=== PATIENT | female | born 1970 | race Caucasian/White ===

== ENCOUNTER 2022-11-01 09:18 | Outpatient (OUT) | payer OTHER, SELFPAY ==
[2022-11-01 10:05] LABS: Bilirubin Urine NEGATIVE (NEGATIVE); Blood Urine NEGATIVE (NEGATIVE); Clarity Urine CLEAR (CLEAR); Color Urine LT. YELLOW (YELLOW); Glucose Urine UA NEGATIVE (NEGATIVE); Ketones Urine NEGATIVE (NEGATIVE); Leukocyte Esterase Urine NEGATIVE (NEGATIVE); Nitrite Urine NEGATIVE (NEGATIVE); Protein Urine NEGATIVE (NEG/TRACE); Urobilinogen Urine 0.2 EU/dL (0.2-1.0)
[2022-11-01 10:16] LABS: WBC Urine 0-2 #/HPF (NONE SEEN)
[2022-11-01 10:17] LABS: Bacteria Urine MODERATE #/HPF (NONE SEEN); Mucus Urine NONE SEEN (NONE SEEN); RBC Urine NONE SEEN #/HPF (0-2); Squamous Epithelial Cell Urine MANY #/LPF (NONE/RARE)
[2022-11-01 10:18] LABS: Cast Seen? NONE SEEN #/LPF (NONE SEEN); Crystals Seen? None Seen #/HPF (None Seen)
[2022-11-01 10:28] LABS: Estimated Average Glucose 108 mg/dL; Glycohemoglobin A1C 5.4 % (4.5-6.2)
[2022-11-01 11:13] LABS: Alanine Aminotransferase 38 U/L (14-59); Albumin Globulin Ratio 0.8; Albumin Level 3.4 g/dL (3.4-5.0); Alkaline Phosphatase 113 U/L (46-116); Anion Gap 11.4; Aspartate Amino Transferase 27 U/L (15-37); BUN Creatinine Ratio 11.2; Bilirubin Total 0.5 mg/dL (0.2-1.0); Calcium 8.9 mg/dL (8.5-10.1); Carbon Dioxide 28.6 mmol/L (21.0-32.0); Chloride 104 mmol/L (98-107); Estimated GFR (African America >60 (>=60); Estimated GFR (Non-African Ame 53 (>=60); Globulin 4.3 g/dL; Glucose 98 mg/dL (74-106); Sodium 140 mmol/L (136-145); Total Protein 7.7 g/dL (6.4-8.2)
[2022-11-01 11:15] LABS: Free T4 0.73 ng/dL (0.76-1.46)
[2022-11-01 11:20] LABS: Chol HDL Ratio 3.3; Cholesterol 141 mg/dL (<=200); HDL Cholesterol 43 mg/dL (40-60); LDL Cholesterol Calculated 74.8 mg/dL; Thyroid Stimulating Hormone 2.027 uIU/mL (0.358-3.740); Triglycerides 116 mg/dL (<=150); VLDL CHOLESTEROL 23.2 mg/dL
== END 2022-11-01 09:19 ==
LOC: LAB 09:22
PROVIDERS: PCP Nurse Practitioner; Visit Provider Nurse Practitioner
DX: E55.9 Vitamin D deficiency, unspecified (principal); I10 Essential (primary) hypertension; E66.01 Morbid (severe) obesity due to excess calories; Z68.41 Body mass index [BMI] 40.0-44.9, adult
CPT/HCPCS: 36415; 80053; 80061; 81001; 82306; 83036; 84439; 84443

== ENCOUNTER 2023-02-25 12:17 | Outpatient (OUT) | payer MEDICARE, SELFPAY ==
[2023-02-25 13:08] LABS: Basophils Percent Auto 0.5 % (0.2-2.0); Eosinophils Absolute Auto 0.1 10^3/uL (0.0-0.7); Eosinophils Percent Auto 1.7 % (0.9-7.0); Hematocrit 40.6 % (36.0-48.0); Hemoglobin 12.6 g/dL (12.0-16.0); Immature Granulocytes Abs Auto 0.04 10^3/uL (0.00-0.03); Immature Granulocytes Pct Auto 0.5 % (0.0-0.5); Lymphocytes Absolute Auto 0.8 10^3/uL (1.2-3.8); Lymphocytes Percent Auto 10.3 % (20.5-60.0); Mean Corpuscular Hemoglobin 27.9 pg (26.7-34.0); Mean Corpuscular Volume 89.8 fL (81.0-99.0); Mean Platelet Volume 12.7 fL (9.5-13.5); Monocytes Percent Auto 12.6 % (1.7-12.0); Neutrophils Percent Auto 74.4 % (43.0-75.0); Platelet Count 240 10^3/uL (150-450); Red Blood Count 4.52 10^6/uL (4.20-5.40); Red Cell Distribution Width 14.6 % (11.0-15.0); White Blood Count 8.1 10^3/uL (4.0-11.0)
[2023-02-25 13:09] LABS: Bilirubin Urine NEGATIVE (NEGATIVE); Blood Urine NEGATIVE (NEGATIVE); Clarity Urine CLEAR (CLEAR); Color Urine LT. YELLOW (YELLOW); Glucose Urine UA NEGATIVE (NEGATIVE); Ketones Urine NEGATIVE (NEGATIVE); Leukocyte Esterase Urine NEGATIVE (NEGATIVE); Nitrite Urine NEGATIVE (NEGATIVE); Protein Urine NEGATIVE (NEG/TRACE); Specific Gravity Urine 1.015 (1.005-1.025); Urobilinogen Urine 0.2 EU/dL (0.2-1.0)
[2023-02-25 13:11] LABS: Erythrocyte Sedimentation Rate 39 mm/hr (<=30)
[2023-02-25 13:11] LABS: Urine Microscopic Indicated NO
[2023-02-25 13:15] LABS: WBC Urine NONE SEEN #/HPF (NONE SEEN)
[2023-02-25 13:16] LABS: Bacteria Urine NONE SEEN #/HPF (NONE SEEN); Cast Seen? NONE SEEN #/LPF (NONE SEEN); Crystals Seen? None Seen #/HPF (None Seen); Mucus Urine NONE SEEN (NONE SEEN); RBC Urine NONE SEEN #/HPF (0-2); Squamous Epithelial Cell Urine FEW #/LPF (NONE/RARE)
[2023-02-25 13:47] LABS: Alanine Aminotransferase 31 U/L (14-59); Albumin Globulin Ratio 0.8; Albumin Level 3.5 g/dL (3.4-5.0); Alkaline Phosphatase 103 U/L (46-116); Anion Gap 5.7; Aspartate Amino Transferase 22 U/L (15-37); BUN Creatinine Ratio 8.7; Bilirubin Direct 0.1 mg/dL (0.0-0.2); Bilirubin Total 0.3 mg/dL (0.2-1.0); C Reactive Protein 0.9 mg/dL (<=1.0); Calcium 8.9 mg/dL (8.5-10.1); Chloride 103 mmol/L (98-107); Estimated GFR (African America >60 (>=60); Estimated GFR (Non-African Ame 55 (>=60); Free T3 2.53 pg/mL (2.18-3.98); Globulin 4.3 g/dL; Glucose 83 mg/dL (74-106); Potassium 3.7 mmol/L (3.5-5.1); Sodium 139 mmol/L (136-145); Total Protein 7.8 g/dL (6.4-8.2)
== END 2023-02-25 12:18 | disposition home or self-care (01) ==
LOC: LAB 12:21
PROVIDERS: PCP Nurse Practitioner; Visit Provider Nurse Practitioner
DX: R61 Generalized hyperhidrosis (principal); N95.1 Menopausal and female climacteric states
CPT/HCPCS: 36415; 80053; 81003; 82248; 84439; 84443; 84481; 85025; 85652; 86140

== ENCOUNTER 2024-01-23 10:19 | Outpatient (OUT) | payer MEDICARE, SELFPAY ==
[2024-01-23 10:57] LABS: Bilirubin Urine NEGATIVE (NEGATIVE); Blood Urine NEGATIVE (NEGATIVE); Clarity Urine CLEAR (CLEAR); Color Urine LT. YELLOW (YELLOW); Glucose Urine UA NEGATIVE (NEGATIVE); Ketones Urine NEGATIVE (NEGATIVE); Leukocyte Esterase Urine NEGATIVE (NEGATIVE); Nitrite Urine NEGATIVE (NEGATIVE); Protein Urine NEGATIVE (NEG/TRACE); Urobilinogen Urine 0.2 EU/dL (0.2-1.0); pH Urine 6.5 (5.0-9.0)
[2024-01-23 10:59] LABS: Urine Microscopic Indicated NO
[2024-01-23 11:09] LABS: Creatinine Urine Random 87.93 mg/dL (20.00-300.00); Microalbumin Urine Random <1.3 mg/dL (<=30.0)
[2024-01-23 11:13] LABS: Estimated Average Glucose 100 mg/dL; Glycohemoglobin A1C 5.1 % (4.5-6.2)
[2024-01-23 11:57] LABS: Alanine Aminotransferase 24 U/L (14-59); Albumin Globulin Ratio 0.9; Albumin Level 3.6 g/dL (3.4-5.0); Alkaline Phosphatase 88 U/L (46-116); Anion Gap 14.4; Aspartate Amino Transferase 23 U/L (15-37); BUN Creatinine Ratio 8.2; Bilirubin Total 0.6 mg/dL (0.2-1.0); Carbon Dioxide 30.2 mmol/L (21.0-32.0); Chloride 101 mmol/L (98-107); Chol HDL Ratio 4.7; Cholesterol 205 mg/dL (<=200); Estimated GFR (African America >60 (>=60); Estimated GFR (Non-African Ame 60 (>=60); Globulin 3.9 g/dL; Glucose 91 mg/dL (74-106); HDL Cholesterol 44 mg/dL (40-60); Potassium 3.6 mmol/L (3.5-5.1); Sodium 142 mmol/L (136-145); Thyroid Stimulating Hormone 1.719 uIU/mL (0.358-3.740); Total Protein 7.5 g/dL (6.4-8.2); Triglycerides 143 mg/dL (<=150); VLDL CHOLESTEROL 28.6 mg/dL
[2024-01-23 12:10] LABS: Free T4 1.01 ng/dL (0.76-1.46)
[2024-01-24 09:10] LABS: HBsAg Screen Negative (Negative); HCV Ab Non Reactive (Non Reactive); Hep A Ab, IgM Negative (Negative); Hep B Core Ab, IgM Negative (Negative)
== END 2024-01-23 10:20 | disposition home or self-care (01) ==
LOC: LAB 10:19
PROVIDERS: PCP Nurse Practitioner; Visit Provider Nurse Practitioner
DX: R63.5 Abnormal weight gain (principal); L02.91 Cutaneous abscess, unspecified; E55.9 Vitamin D deficiency, unspecified; Z20.5 Contact with and (suspected) exposure to viral hepatitis; E78.5 Hyperlipidemia, unspecified; I10 Essential (primary) hypertension
CPT/HCPCS: 36415; 80053; 80061; 80074; 81003; 82043; 82306; 82570; 83036; 84439; 84443

== ENCOUNTER 2024-06-30 09:18 | Outpatient (OUT) | payer MEDICARE, SELFPAY ==
--- NOTE | 2024-06-30 09:20 | MM_ITS ---
Patient Name: NITHYA VASQUEZ MR#: [id number] : 1970 Exam Date: 06/30/2024 Ordering Doctor: RUBINA Gracia CNP RADIOLOGY REPORT PROCEDURE: MM TOMOSYNTHESIS SCREENING BI COMPARISON: None. INDICATIONS: Screening Calculator Name NCI Breast Cancer Risk Assessment Tool 5 Year Breast Cancer Risk 2.40% Lifetime Breast Cancer Risk 14.80% Personal Breast Cancer No Personal Ovarian Cancer No Treatments None Family Cancers Sister with breast cancer at age 63; Father with throat/lung cancer at age 58. LOCATION: [facility] BREAST COMPOSITION: There are scattered areas of fibroglandular density. FINDINGS: DIAGNOSTIC CATEGORY 1--NEGATIVE. NO CHANGE FROM COMPARISON ASSESSMENT. Scattered benign-appearing calcifications are present. RIGHT BREAST: No significant suspicious finding. LEFT BREAST: No significant suspicious finding. RECOMMENDATIONS: ROUTINE MAMMOGRAM AND CLINICAL EVALUATION IN 12 MONTHS. PLEASE NOTE: A NORMAL MAMMOGRAM DOES NOT EXCLUDE THE POSSIBILITY OF BREAST CANCER. A CLINICALLY SUSPICIOUS PALPABLE LUMP SHOULD BE BIOPSIED. Dictated by: Rivera Kenny MD on 06/30/2024 at 11:30 Approved by: Rivera Kenny MD on 06/30/2024 at 11:32
--- OUTSIDE RECORDS SUMMARY | 2024-06-30 09:41 | XMS_ITS | CCD ---
Author Organization [facility] Inform ion Partnership [facility] Care Team Providers Care Specialty Manufacturing Supervisor Name Role Phone August DE ICER Unavailable Unavailable August DE ICER Unavailable Unavailable August DE ICER Unavailable Unavailable Jaleesa Lara Unavailable [facility] Primary Care Provider MD Tyshawn Palencia Attending Provider Valdez Acosta MD Primary Care Provider Tyshawn Palencia Unavailable Valdez Acosta MD Primary Care Provider Valdez Acosta MD Primary Care Provider AICHHOLZ, DE ICER KRISTIN Admitting Unavailable AICHHOLZ, DE ICER KRISTIN Attending Unavailable AICHHOLZ, DE ICER KRISTIN Primary Care Unavailable TAMLYN ., YAHAIRA Consulting Unavailable TAMLYN ., YAHAIRA Admitting Unavailable TAMLYN ., YAHAIRA Attending Unavailable AICHHOLZ, DE ICER KRISTIN Primary Care Unavailable TAMLYN ., YAHAIRA Consulting Unavailable THEA LYNN Consulting Unavailable YASH CALLAHAN Consulting Unavailable AICHHOLZ, DE ICER KRISTIN Admitting Unavailable AICHHOLZ, DE ICER KRISTIN Attending Unavailable AICHHOLZ, DE ICER KRISTIN Primary Care Unavailable AICHHOLZ, DE ICER KRISTIN Consulting Unavailable AICHHOLZ, DE ICER KRISTIN Admitting Unavailable AICHHOLZ, DE ICER KRISTIN Attending Unavailable AICHHOLZ, DE ICER KRISTIN Primary Care Unavailable AICHHOLZ, DE ICER KRISTIN Consulting Unavailable DR TULIO BULL Admitting Unavailable MISC, DR ANTUNEZ Attending Unavailable AICHHOLZ, DE ICER KRISTIN Primary Care Unavailable MISC, DR ANTUNEZ Consulting Unavailable Aichholz BLUEPRINT BLOCKER, Kristin Unavailable Maxim Lanza MD Primary Care Provider Valdez Acosta MD Primary Care Provider VINCE, JESSICA Referring Unavailable PARIS TOLEDO Attending Unavailable DAHBAR, MAZEN Primary Care Unavailable ELIAZAR VAZQUEZ Attending Unavailable DAHBAR, MAZEN Primary Care Unavailable KATERIN MCCOY Attending Unavailable YOUNG, JESSICA Referring Unavailable DAHBAR, MAZEN Primary Care Unavailable YOUNG, JESSICA Referring Unavailable YOUNG, JESSICA Attending Unavailable [facility], [facility] Unavailable SARTHAK ESCOBAR Referring Unavailable DAHBAR, [facility] Primary Care Unavailable , AUGUST L Primary Care Physician Unavailab le CHICKENAugust Primary Care Unavailable Brooks, Eliazar T Referring Unavailable Brooks, Eliazar T Attending Unavailable Brooks, Eliazar T Admitting Unavailable NONE, XXXX Primary Care Physician Unavailab Keli Montanez Unavailable Unavailable Brooks, Eliazar T Admitting Unavailable Brooks, Eliazar T Attending Unavailable Brooks, Eliazar T Referring Unavailable Brooks, Eliazar T Admitting Unavailable Brooks, Eliazar T Attending Unavailable Brooks, Eliazar T Referring Unavailable CHICKENAugust Primary Care Unavailable Aichholz BLUEPRINT BLOCKER, Kristin Unavailable Myla BENITEZ, Maxim Primary Care Provider Sarah FIGUEROA, Sherrie Unavailable John VIEIRAN.RUBINA, Elizabeth Lantigua Unavailable [phone] SHERRIE BOONE Attending UnavailSHAIKH Junior Attending Unavailable HILLS, YAHAIRA D Attending Unavailable HILLS, YAHAIRA D Referring Unavailable AICHHOLZ, KRISTIN Attending Unavailable HILLS, YAHAIRA D Referring Unavailable HILLS, YAHAIRA D Attending Unavailable HILLS, YAHAIRA D Referring Unavailable AICHHOLZ, KRISTIN Attending Unavailable HILLS, YAHAIRA D Referring Unavailable HILLS, YAHAIRA D Attending Unavailable AICHHOLZ, KRISTIN Attending Unavailable BROOKS, ELIAZAR T Attending Unavailable AICHHOLZ, KRISTIN Attending Unavailable BROOKS, ELIAZAR T Attending Unavailable BROOKS, ELIAZAR T Referring Unavailable AICHHOLZ, KRISTIN Attending Unavailable BROOKS, ELIAZAR T Referring Unavailable BROOKS, ELIAZAR T Attending Unavailable BROOKS, ELIAZAR T Referring Unavailable ARIA AGRAWAL Attending Unavailable BROOKS, ELIAZAR T Referring Unavailable INDERJIT PELLETIER Attending Unavailable AICHHOLZ, KRISTIN Attending Unavailable INDERJIT PELLETIER Attending Unavailable BROOKS, ELIAZAR T Referring Unavailable BROOKS, ELIAZAR T Attending Unavailable INDERJIT PELLETIER Attending Unavailable ELIAZAR BROOKS Referring Unavailable INDERJIT PELLETIER Attending Unavailable ELIAZAR BROOKS Referring Unavailable YAHAIRA VAZQUEZ Attending Unavailable KRISTIN GRACIA Attending Unavailable Allergies Allergy Classification Reported Allergen(s) Allergy Type Date of Onset Reaction(s) Facility (1 source) -No Environmental Allergies Allergy to substance [facility] Work Phone: (2 sources) Acetaminophen / HYDROcodone; Translations: [Vicodin] Drug Allergy [facility] Repository (2 sources) Penicillins; Translations: [penicillins] Propensity to adverse reactions (disorder) [facility] Repository Medications Current Medications Medication Drug Class(es) Dates Sig (Normalized) Sig (Original) acetaminophen 1000 mg oral tablet (20 sources) Start: 06-30-2016 take 1000 mg by mouth every six hours as needed for pain Tylenol 1,000 mg, Oral, q6hr, PRN as needed for pain Start Date: 06/30/16 Status: Ordered acetaminophen (T ylenol) 500 MG tablet Take by mouth Active acetaminophen 325 mg / oxyCODONE hydrochloride 5 mg oral tablet (20 sources) Opioid Agonist Start: 02-06-2024 take 1-2 tablets by mouth every four hours as needed for pain Percocet 5 mg-325 mg oral tablet See Instructions, 40 tab(s), Refill(s) 0, Take one to two oral every 4 hours as needed for shoulder surgical pain., MuteButton #72, 167.7, cm, 02/05/24 11:09:00 EDT, Height/Length Dosing, 131.3, kg, 02/05/24 11:09:00 EDT, Weight Dosing Start Date: 02/06/24 Status: Ordered Start: 02-06-2024 End: 04-15-2024 Percocet 5-325 MG tablet See Instructions, 40 tab(s), Refill(s) 0, Take one to two oral every 4 hours as needed for shoulder surgical pain., MuteButton #72, 167.7, cm, 02/05/24 11:09:00 EDT, Height/Length Dosing, 131.3, kg, 02/05/24 11:09:00 EDT, Weight Dosing 02/06/2024 04/15/2024 Discontinued (Therapy completed) [id number] 200 actuat albuterol 0.09 mg/actuat metered dose inhaler (20 sources) beta2-Adrenergic Agonist Start: 10-10-2023 take 2 puff(s) by inhalation every six hours for wheezing albuterol HFA (Ventolin HFA) 90 mcg/act inhaler Indications: Chronic bronchitis, unspecified chronic bronchitis type (CMS/HCC) Inhale 2 puffs every 6 (six) hours if needed for wheezing or shortness of breath 18 g 1 10/10/2023 Active Start: 06-05-2023 take 2 puff(s) by mo ut every six hours as needed for wheezing albuterol HFA (PROVENTIL HFA, VENTOLIN HFA) 90 mcg/actuation inhaler INHALE 2 PUFFS BY MOUTH EVERY 6 HOURS NEEDED FOR WHEEZING FOR SHORTNESS OF BREATH 06/05/2023 Active Start: 06-05-2023 End: 07-05-2023 take 2 puff(s) by inhalation every six hours for wheezing albuterol HFA (Ventolin HFA) 90 mcg/act inhaler Indications: Chronic bronchitis, unspecified chronic bronchitis type (CMS/HCC) Inhale 2 puffs every 6 (six) hours if needed for wheezing or shortness of breath 18 g 1 06/05/2023 07/05/2023 Active Comment on above: INHALE 2 PUFFS BY MO UT EVERY 6 HOURS NEEDED FOR WHEEZING FOR SHORTNESS OF BREATH amitriptyline hydrochloride 25 mg oral tablet (20 sources) Tricyclic Antidepressant Start: 09-06-19 take 25 mg by mouth at bedtime Amitriptyline Active 25 MG PO Bedtime September 05, 2021 8:21am Start: 07-15-2020 amitriptyline (ELAVIL) 50 mg tablet Take 25-50 mg qhs 07/15/2020 Active take 1 tablet by katharina every twelve hours Amitriptyline HCl 10 MG 1 tablet Orally twice a day Active Amitriptyline HC l Active Comment on above: Take 25-50 mg qhs amoxicillin 875 mg oral tablet (4 sources) Penicillin-class Antibacterial Start: 04-14-20 End: 04-27-20 take 1 tablet by mouth in the morning amoxicillin (Amoxil) 875 MG tablet Indications: Acute non-recurrent sinusitis of other sinus Take 1 tablet (875 mg) by mouth in the morning and 1 tablet (875 mg) before bedtime. Do all this for 10 days. 20 tablet 04/14/2024 04/27/2024 Discontinued (Therapy completed) amoxicillin 875 mg / clavulanate 125 mg oral tablet (4 sources) Penicillin-class Antibacterial Start: 02-03-20 End: 02-13-20 take 1 tablet by mouth in the morning amoxicillin-clavulanat e (Augmentin) 875-125 MG tablet Indications: Diverticulitis Take 1 tablet (875 mg) by mouth in the morning and 1 tablet (875 mg) before bedtime. Do all this for 10 days. Take with food. 20 tablet 02/03/2024 02/13/2024 Active Start: 06-26-2023 End: 07-06-2023 take 1 tablet by mouth in the morning amoxicillin-clavulanate (Augmentin) 875-125 MG tablet Indications: COPD with exacerbation (CMS/HCC) Take 1 tablet (875 mg) by mouth in the morning and 1 tablet (875 mg) before bedtime. Do all this for 10 days. 20 tablet 0 06/26/2023 07/06/2023 Active ARIPiprazole 5 mg oral tablet (5 sources) Atypical Antipsychotic Start: 05-18-2024 End: 06-17-2024 take 1 tablet by mouth once daily ARIPiprazole (Abilify) 5 MG tablet Indications: Moderate episode of recurrent major depressive disorder (CMS/HCC) , Generalized anxiety disorder with panic attacks (CMS/HCC) Take 1 tablet (5 mg) by mouth Daily 30 tablet 1 05/18/2024 Active benzonatate 100 mg oral capsule (1 source) Non-narcotic Antitussive Start: 06-26-2023 End: 07-03-2023 take 1 capsule by mouth three times daily as needed for cough benzonatate (Tessalon Perles) 100 MG capsule Indications: COPD with exacerbation (CMS/HCC) Take 1 capsule (100 mg) by mouth 3 (three) times a day as needed for cough for up to 7 days Do not crush or chew. 20 capsule 0 06/26/2023 07/03/2023 Active brompheniramine maleate 0.4 mg/ml / dextromethorphan hydrobromide 2 mg/ml / pseudoephedrine hydrochloride 6 mg/ml oral solution (1 source) alpha-Adrenergic Agonist, Uncompetitive M-btxnol-A-aspartat e Receptor Antagonist, Sigma-1 Agonist Start: 04-15-2024 End: 04-22-2024 take 10 mL by mouth every eight hours for cough brompheniramine-p seudoephedrine-DM 30-2-10 MG/5ML syrup Indications: Acute cough Take 10 mL by mouth every 8 (eight) hours if needed for congestion or cough for up to 7 days 210 mL 04/15/2024 04/22/2024 Active 120 actuat budesonide 0.16 mg/actuat / formoterol fumarate 0.0048 mg/actuat / glycopyrrolate 0.009 mg/actuat metered dose inhaler (14 sources) Corticosteroid, beta2-Adrenergic Agonist Start: 12-02-2023 End: 03-01-2024 take 2 puff(s) by mouth in the morning Budeson-Glycopyrr ol-Formoterol (Breztri Aerosphere) 160-9-4.8 MCG/ACT aerosol Indications: Chronic bronchitis, unspecified chronic bronchitis type (CMS/HCC) Inhale 2 puffs in the morning and 2 puffs before bedtime. Rinse mouth after use. 3 g 1 12/02/2023 03/01/2024 Active buPROPion hydrochloride 75 mg oral tablet (1 source) Aminoketone Start: 06-30-2016 take 1 tablet by mouth once daily Wellbutrin 75 mg Tab 75 mg = 1 tab(s), Oral, Daily Start Date: 06/30/16 Status: Ordered busPIRone hydrochloride 5 mg oral tablet (5 sources) Start: 05-18-2024 End: 06-17-2024 take 1 tablet by mouth in the morning busPIRone (Buspar) 5 MG tablet Indications: Generalized anxiety disorder with panic attacks (CMS/HCC) Take 1 tablet (5 mg) by mouth in the morning and 1 tablet (5 mg) before bedtime. 60 tablet 1 05/18/2024 Active cetirizine hydrochloride 10 mg oral tablet (2 sources) Histamine-1 Receptor Antagonist Start: 06-17-2024 End: 09-15-2024 take 1 tablet by mouth once daily cetirizine (ZyrTEC) 10 MG tablet Indications: Acute non-recurrent frontal sinusitis Take 1 tablet (10 mg) by mouth Daily 30 tablet 2 06/17/2024 09/15/2024 Active cholecalciferol 0.025 mg oral capsule (20 sources) Vitamin D Cholecalciferol, Vitamin D3, (VITAMIN D) 25 mcg (1,000 unit) cap Take 1,000 Units by mouth once daily. Active End: 03-16-2022 take 1 capsule by mouth once daily Cholecalciferol, Vitamin D3, 1,000 unit cap Take 1,000 Units by mouth once daily. 0 03/16/2022 Discontinued Comment on above: Take 1,000 Units by mouth once daily. dimethyl fumarate 240 mg delayed release oral capsule (1 source) Start: take 240 mg by mouth twice daily Tecfidera 240 mg, Oral, BID Start Date: 06/30/16 Status: Ordered doxycycline hyclate 100 mg oral capsule (2 sources) Tetracycline-class Drug Start: 5 End: doxycycline (Vibramycin) 100 MG capsule Indications: Acute non-recurrent frontal sinusitis Take 1 capsule (100 mg) by mouth in the morning and 1 capsule (100 mg) before bedtime. Do all this for 7 days. Take with at least 8 ounces (large glass) of water, do not lie down for 30 minutes after. 14 capsule 06/17/2024 06/24/2024 Active escitalopram 10 mg oral tablet (20 sources) Serotonin Reuptake Inhibitor Start: End: 5 take 1 tablet by mouth once daily escitalopram (Lexapro) 10 MG tablet Indications: Moderate episode of recurrent major depressive disorder (CMS/HCC) , Generalized anxiety disorder with panic attacks (CMS/HCC) Take 1 tablet (10 mg) by mouth Daily 30 tablet 1 05/18/2024 Active Start: 04-27-2024 End: 05-27-2024 take 1 tablet by mouth once daily escitalopram (Lexapro) 20 MG tablet Indications: Anxiety and depression (CMS/HCC) Take 1 tablet (20 mg) by mouth Daily 30 tablet 1 04/27/2024 05/18/2024 Discontinued (Therapy completed) Start: 03-05-2024 End: 04-04-2024 take 1 tablet by mouth once daily escitalopram (Lexapro) 20 MG tablet Indications: Anxiety and depression (CMS/HCC) Take 1 tablet (20 mg) by mouth Daily 30 tablet 1 03/05/2024 Active Start: 12-02-2023 End: 03-05-2024 take 1 tablet by mouth once daily escitalopram (Lexapro) 10 MG tablet Indications: Anxiety and depression (CMS/HCC) Take 1 tablet (10 mg) by mouth Daily 90 tablet 1 12/02/2023 03/05/2024 Discontinued (Ineffective) Start: 06-05-2023 take 1 tablet by katharina th in the morning escitalopram (Lexapro) 10 MG tablet Indications: Anxiety and depression (CMS/HCC) Take 1 tablet (10 mg) by mouth in the morning. 90 tablet 1 06/05/2023 Active Estrogens, Conjugated (SKILLED NURSING) / medroxyPROGESTERone (1 source) Progestin, Estrogen Start: 06-30-2016 FLUoxetine 20 mg oral capsule (12 sources) Serotonin Reuptake Inhibitor Start: 09-05-2021 FLUoxetine (PROZAC) 20 mg capsule Daily 09/05/2021 Active Comment on above: Daily fluticasone propionate 0.05 mg/actuat metered dose nasal spray (2 sources) Corticosteroid Start: 06-17-2024 End: 06-17-2025 take 1-2 spray(s) nasal route once daily fluticasone (Flonase) 50 MCG/ACT nasal spray Indications: Acute non-recurrent frontal sinusitis Administer 1-2 sprays into each nostril Daily Shake gently. Before first use, prime pump. After use, clean tip and replace cap. 16 g 2 06/17/2024 06/17/2025 Active iv contrast (will be provided with radiology test) (5 sources) Start: 07-16-2023 End: 07-17-2023 inject 1 dose intravenously once iv contrast (will be provided with radiology test) MRI Brain Inject, intravenously, once for 1 dose.No IV access, insert saline lock prior to beginning of sedation, infusion, injection of imaging exam.Discontinue saline lock post exam. If Pt. has a central line or IVAD, may access for administration according to line specific nursing protocol.Once exam is complete flush line and de-access according to line specific nursing protocol in the MR contrast administration guidelines link 1 Each 0 07/16/2023 07/17/2023 Active Start: 08-30-2022 End: 08-31-2022 inject 1 dose intravenously once iv contrast (will be provided with radiology test) MRI Brain Inject, intravenously, once for 1 dose.No IV access, insert saline lock prior to beginning of sedation, infusion, injection of imaging exam.Discontinue saline lock post exam. If Pt. has a central line or IVAD, may access for administration according to line specific nursing protocol.Once exam is complete flush line and de-access according to line specific nursing protocol in the MR contrast administration guidelines link 1 Each 0 08/30/2022 08/31/2022 Active Start: 08-30-2022 End: 08-31-2022 iv contrast (will be provide d with radiology test) MRI CSP Inject, intravenously, once for 1 dose. No IV access, insert saline lock prior to the beginning of sedation, infusion, injection of imaging exam. Discontinue saline lock post exam. If Pt. has a central line or IVAD, may access for administration according to line specific nursing protocol. Once exam is complete flush line and de-access according to line specific nursing protocol in the MR contrast administration guidelines link. 1 Each 0 08/30/2022 08/31/2022 Active Start: 11-14-2021 End: 11-15-2021 inject 1 dose intravenously once iv contrast (will be provided with radiology test) MRI Brain Inject, intravenously, once for 1 dose.No IV access, insert saline lock prior to beginning of sedation, infusion, injection of imaging exam.Discontinue saline lock post exam. If Pt. has a central line or IVAD, may access for administration according to line specific nursing protocol.Once exam is complete flush line and de-access according to line specific nursing protocol in the MR contrast administration guidelines link 1 Each 0 11/14/2021 11/15/2021 Active Start: 09-15-2021 End: 09-16-2021 inject 1 dose intravenously once iv contrast (will be provided with radiology test) MRI Brain Inject, intravenously, once for 1 dose.No IV access, insert saline lock prior to beginning of sedation, infusion, injection of imaging exam.Discontinue saline lock post exam. If Pt. has a central line or IVAD, may access for administration according to line specific nursing protocol.Once exam is complete flush line and de-access according to line specific nursing protocol in the MR contrast administration guidelines link 1 Each 0 09/15/2021 09/16/2021 Active Comment on above: MRI Brain Inject, in travenously, once for 1 dose.No IV access, insert saline lock prior to beginning of sedation, infusion, injection of imaging exam.Discontinue saline lock post exam. If Pt. has a central line or IVAD, may access for administration according to line specific nursing protocol.Once exam is complete flush line and de-access according to line specific nursing protocol in the MR contrast administration guidelines link MRI CSP Inject, intr avenously, once for 1 dose. No IV access, insert saline lock prior to the beginning of sedation, infusion, injection of imaging exam. Discontinue saline lock post exam. If Pt. has a central line or IVAD, may access for administration according to line specific nursing protocol. Once exam is complete flush line and de-access according to line specific nursing protocol in the MR contrast administration guidelines link. multivitamin tablet (20 sources) take 1 tablet by mouth once daily multivitamin tablet Take 1 tablet by mouth once daily. Active take 1 tablet by mouth once dot y multivitamin tablet Take 1 tablet by mouth once daily. 0 Active Comment on above: Take 1 tablet by katharina th once daily. Multivitamins and Minerals (2 sources) Start: 7 take 1 tablet by mouth once daily Multivitamins and Minerals 1 tab, Oral, Daily, Prophylaxis Start Date: 06/30/16 Status: Ordered Start: 06-30-2016 take 1 tablet by katharina th once daily Multivitamins and Minerals 1 tab, Oral, Daily Start Date: 06/30/16 Status: Ordered nystatin 100 unt/mg topical powder (9 sources) Polyene Antifungal Start: 03-05-2024 End: 03-20-2024 nystatin (Mycostatin) 215248 UNIT/GM powder Indications: Candidiasis of skin Apply topically 2 (two) times a day for 15 days Apply to affected areas 60 g 1 03/05/2024 03/20/2024 Active End: 03-05-2024 nystatin (Mycostatin) [id number] UNIT/GM powder Apply topically 2 (two) times a day 03/05/2024 Discontinued (Reorder) 10 ml ocrelizumab 30 mg/ml injection (20 sources) Start: 09-05-2021 ocrelizumab (O CREVUS) 30 mg/mL soln injection 10 mL. 09/05/2021 Active Comment on above: 10 mL. ocrelizumab (OCREVUS INTRAVENOUS) (20 sources) ocrelizumab (OCR EVUS INTRAVENOUS) Inject 600 mg intravenously once every 6 months. Active ocrelizumab (OCR EVUS INTRAVENOUS) Inject 600 mg intravenously once every 6 months. 0 Active Comment on above: Inject 600 mg intrav enously once every 6 months. predniSONE 20 mg oral tablet (2 sources) Start: 4 End: 4 take 1 tablet by mouth three times daily, then take 1 tablet by mouth twice daily, then take 1 tablet by mouth once daily predniSONE (Deltasone) 20 MG tablet Indications: COPD with exacerbation (CMS/HCC) Take 1 tablet (20 mg) by mouth 3 (three) times a day for 5 days, THEN 1 tablet (20 mg) 2 (two) times a day for 2 days, THEN 1 tablet (20 mg) Daily for 2 days. 21 tablet 0 06/26/2023 07/05/2023 Active Start: 05-08-2017 End: 05-08-2017 predniSONE 10 MG OR TABS - 05/08/2017 Provider: Probiotic (1 source) Probiotic Active Psyllium (1 source) Metamucil Active traZODone hydrochloride 50 mg oral tablet (20 sources) Serotonin Reuptake Inhibitor Start: 4 take 1 tablet by mouth once daily at bedtime as needed for sleep traZODONE 50 mg Tab 50 mg = 1 tab(s), Oral, Once a day (at bedtime), PRN Sleep, Refills(s) 0 Start Date: 02/05/24 Status: Ordered Start: 01-05-2024 End: 05-18-2024 take 2 tablets by mouth at bedtime traZODone (Desyrel) 50 MG tablet Take 100 mg by mouth at bedtime 01/05/2024 05/18/2024 Discontinued (Therapy completed) Start: 06-14-2018 End: 06-14-2018 TRAZODONE 50 mg MISC 019 - 06/14/2018 Provider: Start: 05-30-2017 End: 05-30-2017 TRAZODONE 50 mg MISC 018 - 05/30/2017 Provider: vitamin B12 (12 sources) Vitamin B12 Start: 02-05-2024 take 2500 ug under the tongue once daily Vitamin B12 2,500 mcg, SubLingual, Daily, Refills(s) 0, Prophylaxis Start Date: 02/05/24 Status: Ordered take 1 tablet by mouth once dot y cyanocobalamin (VITAMIN B-12) 1,000 mcg tab Take 1,000 mcg by mouth once daily. Active Comment on above: Take 1,000 mcg by mo [facility] once daily. Vitamin D (2 sources) Start: 06-30-2016 Vitamin D 1,200 International_Unit, Oral, Daily, Prophylaxis Start Date: 06/30/16 Status: Ordered Start: 06-30-2016 Vitamin D 1,20 0 International_Unit, Oral, Daily Start Date: 06/30/16 Status: Ordered Completed/Discontinued Medications Medication Drug Class(es) Dates Sig (Normalized) Sig (Original) aspirin 81 mg delayed release oral tablet (9 sources) Platelet Aggregation Inhibitor, Nonsteroidal Anti-inflammatory Drug Start: 07-15-2020 End: 03-16-2022 take 1 tablet by mouth once daily aspirin, enteric coated (ADULT LOW DOSE ASPIRIN) 81 mg EC tablet Take 1 tablet by mouth once daily. 30 tablet 5 07/15/2020 03/16/2022 Discontinued Comment on above: Take 1 tablet by katharina th once daily. atorvastatin 40 mg oral tablet (20 sources) HMG-CoA Reductase Inhibitor Start: 10-12-2022 End: 07-10-2023 take 1 tablet by mouth once daily atorvastatin (LIPITOR) 40 mg tablet Take 1 tablet by mouth once daily 30 tablet 0 10/12/2022 07/10/2023 Discontinued (Other) Start: 11-01-2020 End: 11-14-2021 take 1 tablet by mouth once daily atorvastatin (LIPITOR) 40 mg tablet Take 1 tablet by mouth once daily. 30 tablet 5 11/14/2021 Active Atorvastatin Jadon cium Active Comment on above: Take 1 tablet by katharina th once daily. Take 1 tablet by katharina th once daily betamethasone 3 mg/ml / betamethasone acetate 3 mg/ml injectable suspension (4 sources) Corticosteroid Start: 04-27-2024 End: 04-27-2024 betamethasone acetate-betamethasone sodium phosphate (Celestone) injection 12 mg Start: 04-27-2024 End: 04-27-2024 12 mg, Intra-articular, Once PRN Procedure, Starting on 04/27/24 at 0943, For 1 dose cyclobenzaprine (3 sources) Muscle Relaxant Start: 06-14-2018 End: 06-14-2018 CYCLOBENZAPRINE 10 MG MISC 06/14/2018 - 06/14/2018 Provider: Start: 05-30-2017 End: 05-30-2017 CYCLOBENZAPRINE 10 MG MISC 0 05/30/2017 - 05/30/2017 Provider: Start: 06-30-2016 take 2 tablets by mo [facility] twice daily as needed for muscle spasms cyclobenzaprine 10 mg Tab 20 mg = 2 tab(s), Oral, BID, PRN for spasm Start Date: 06/30/16 Status: Ordered DULoxetine 30 mg delayed release oral capsule (18 sources) Serotonin and Norepinephrine Reuptake Inhibitor Start: 09-13-2021 End: 07-10-2023 take 1 capsule by mouth once daily DULoxetine (CYMBALTA) 30 mg capsule Take 30 mg by mouth once daily. 0 09/13/2021 07/10/2023 Discontinued (Other) DULoxetine HCl A ctive Comment on above: Take 30 mg by mouth once daily. lisinopril 10 mg oral tablet (20 sources) Angiotensin Converting Enzyme Inhibitor Start: 3 End: 4 take 1 tablet by mouth once daily lisinopril (ZESTRIL) 10 mg tablet Take 1 tablet by mouth once daily 30 tablet 0 10/12/2022 07/10/2023 Discontinued (Other) Start: 11-01-2020 End: 11-14-2021 take 1 tablet by mouth once daily lisinopril (ZESTRIL, PRINIVIL) 10 mg tablet Take 1 tablet by mouth once daily. 30 tablet 5 11/14/2021 Active Lisinopril Activ e Comment on above: Take 1 tablet by katharina th once daily. Take 1 tablet by katharina th once daily meloxicam 15 mg oral tablet (9 sources) Nonsteroidal Anti-inflammatory Drug Start: 3 End: 4 take 1 tablet by mouth once daily in the morning meloxicam (MOBIC) 15 mg tablet Take 15 mg by mouth every morning. 0 05/01/2023 11/26/2023 Discontinued Comment on above: Take 15 mg by mouth every morning. naproxen 500 mg oral tablet (20 sources) Nonsteroidal Anti-inflammatory Drug Start: 7 End: 9 Naproxen 500 MG OR TABS 06/14/2018 - 06/14/2018 Provider: Conversion Provider naproxen (Napros yn) 250 MG tablet Take by mouth Active 24 hr oxybutynin chloride 5 mg extended release oral tablet (9 sources) Cholinergic Muscarinic Antagonist Start: 03-07-2022 End: 07-10-2023 oxybutynin XL (DITROPAN XL) 5 mg 24 hr tablet teriflunomide 14 mg oral tablet (1 source) Pyrimidine Synthesis Inhibitor Start: 06-14-2018 End: 06-14-2018 Aubagio 14 MG OR TABS 06/14/2018 - 06/14/2018 Provider: Conversion Provider Problems Active Problems Problem Classification Problem Date Documented Da te Episodic/Chronic Acute cerebrovascular disease (20 sources) Cerebrovascular accident; Translations: [Cerebral infarction, unspecified] Onset: 07-30-2023 07-30-2023 Chronic Adjustment disorders (20 sources) Adjustment disorder with mixed anxiety and depressed mood; Translations: [Adjustment disorder with mixed anxiety and depressed mood] Onset: 10-02-2012 10-02-2012 Chronic Anal and rectal conditions (5 sources) Rectal pain; Translations: [Other specified diseases of anus and rectum] Onset: 08-14-2021 Resolved: 08-14-2021 Episodic Anxiety disorders (20 sources) Mixed anxiety and depressive disorder; Translations: [Anxiety disorder, unspecified] Onset: 04-30-2023 Resolved: 05-18-2024 04-30-2023 Chronic Chronic obstructive pulmonary disease and bronchiectasis (20 sources) Chronic bronchitis; Translations: [Unspecified chronic bronchitis] Onset: 04-30-2023 04-30-2023 Chronic Disorders of lipid metabolism (20 sources) Hyperlipidemia, unspecified; Translations: [Hyperlipoproteinemia ] Onset: 09-27-2022 07-30-2023 Chronic Diverticulosis and diverticulitis (20 sources) Diverticular disease of colon; Translations: [Diverticulosis of intestine, part unspecified, without perforation or abscess without bleeding] Onset: 12-13-2021 Resolved: 12-13-2021 Chronic Essential hypertension (20 sources) Essential (primary) hypertension; Translations: [Essential hypertension] Onset: 09-27-2022 04-30-2023 Chronic Gastrointestinal hemorrhage (5 sources) Rectal hemorrhage; Translations: [Hemorrhage of anus and rectum] Onset: 08-14-2021 Resolved: 08-14-2021 Episodic Genitourinary symptoms and ill-defined conditions (20 sources) Incontinence; Translations: [Unspecified urinary incontinence] Onset: 10-10-2023 10-10-2023 Chronic Hemorrhoids (3 sources) Hemorrhoids; Translations: [Unspecified hemorrhoids] Onset: 12-13-2021 Resolved: 12-13-2021 Episodic Miscellaneous mental health disorders (20 sources) Primary insomnia; Translations: [Primary insomnia] Onset: 04-30-2023 04-30-2023 Chronic Mood disorders (20 sources) Depressive disorder; Translations: [Depression] Onset: 03-19-2015 06-26-2023 Chronic Multiple sclerosis (20 sources) Relapsing remitting multiple sclerosis; Translations: [Multiple sclerosis] Onset: 10-02-2012 Chronic Noninfectious gastroenteritis (1 source) Noninfective gastroenteritis and colitis, unspecified; Translations: [NONINFECTIVE GE AND COLITIS UNS] Onset: 09-27-2022 Episodic Nutritional deficiencies (20 sources) Vitamin D deficiency; Translations: [Vitamin D deficiency, unspecified] Onset: 01-06-2024 11-27-2023 Chronic Osteoarthritis (20 sources) Osteoarthritis of knee; Translations: [Osteoarthritis of knee, unspecified] Onset: 11-08-2016 Resolved: 12-02-2023 04-26-2023 Chronic Other acquired deformities (20 sources) Contracture of joint of right ankle; Translations: [Contracture, right ankle] Onset: 04-26-2023 04-26-2023 Chronic Other and unspecified benign neoplasm (2 sources) Tubular adenoma ; Translations: [Benign neoplasm, unspecified site] Episodic Other and unspecified benign neoplasm (1 source) Benign neoplasm of sigmoid colon; Translations: [BENIGN NEOPLASM OF SIGMOID COLON] Onset: 09-27-2022 Episodic Other circulatory disease (1 source) Personal history of transient ischemic attack (TIA), and cerebral infarction without residual deficits; Translations: [PERS HX TIA AND CI NO RESID DEFICIT] Onset: 09-27-2022 Episodic Other congenital anomalies (20 sources) Cutis verticis gyrata; Translations: [Other specified congenital malformations of skin] Onset: 06-05-2023 06-05-2023 Chronic Other connective tissue disease (1 source) Other symptoms and signs involving the musculoskeletal system; Translations: [Other musculoskeletal symptoms referable to limbs] 09-06-2023 Episodic Other connective tissue disease (2 sources) Rotator cuff impingement syndrome; Translations: [Impingement syndrome of left shoulder] 01-30-2024 Episodic Other connective tissue disease (4 sources) Adhesive capsulitis of left shoulder; Translations: [Adhesive capsulitis of left shoulder] 04-27-2024 Episodic Other gastrointestinal disorders (4 sources) Constipation; Translations: [Constipation, unspecified] Episodic Other gastrointestinal disorders (4 sources) Change in stool caliber; Translations: [Change in bowel habit] Episodic Other gastrointestinal disorders (2 sources) Change in bowel habit Onset: 08-14-2021 Resolved: 08-14-2021 Episodic Other gastrointestinal disorders (3 sources) Altered bowel function; Translations: [Other specified symptoms and signs involving the digestive system and abdomen] Episodic Other nervous system disorders (20 sources) Carpal tunnel syndrome; Translations: [Carpal tunnel syndrome, unspecified upper limb] Onset: 05-20-2002 07-30-2023 Chronic Other nervous system disorders (20 sources) 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; Translations: [Lesion of ulnar nerve, bilateral upper limbs] Onset: 01-23-2024 01-23-2024 Chronic Other non-traumatic joint disorders (1 source) Disorder of joint of shoulder region; Translations: [Other specified joint disorders, left shoulder] Onset: 02-06-2024 Episodic Other non-traumatic joint disorders (2 sources) Pain in left shoulder; Translations: [Pain in joint, shoulder region] 03-13-2024 Episodic Other nutritional; endocrine; and metabolic disorders (20 sources) Severe obesity; Translations: [Morbid (severe) obesity due to excess calories] Onset: 04-30-2023 04-30-2023 Chronic Other nutritional; endocrine; and metabolic disorders (20 sources) Metabolic syndrome X; Translations: [Metabolic syndrome] Onset: 01-06-2024 01-06-2024 Chronic Other upper respiratory infections (16 sources) Acute sinusitis; Translations: [Other acute sinusitis] Onset: 04-14-2024 04-14-2024 Episodic Residual codes; unclassified (20 sources) Obstructive sleep apnea syndrome; Translations: [Obstructive sleep apnea (adult) (pediatric)] Onset: 07-30-2023 07-30-2023 Chronic Residual codes; unclassified (13 sources) History of arthroscopic procedure on shoulder; Translations: [Other specified postprocedural states] 02-24-2024 Episodic Substance-related disorders (3 sources) Nicotine dependence, unspecified, uncomplicated; Translations: [Smoker] Onset: 12-26-2016 06-30-2016 Chronic Comment on above: Added secondary to d ocumentation in Social History. Transient cerebral ischemia (1 source) Transient cerebral ischemia 02-05-2024 Chronic Comment on above: patient states she h ad a moment where she couldn't get words out and did not go to hospital but realized after that is what happened -- august 2020 Past or Other Problems Problem Classification Problem Date Documented Da te Episodic/Chronic Acquired foot deformities (20 sources) Acquired hallux valgus; Translations: [Hallux valgus (acquired), unspecified foot] Onset: 04-26-2023 Resolved: 06-26-2023 04-26-2023 Chronic Genitourinary symptoms and ill-defined conditions (20 sources) Polyuria; Translations: [Polyuria] Onset: 01-06-2024 01-06-2024 Episodic Immunizations and screening for infectious disease (20 sources) Encounter for immunization; Translations: [Suspected clinical finding] Onset: 07-28-2020 07-30-2023 Episodic Mood disorders (20 sources) Mood disorders Onset: 05-01-2023 Resolved: 05-18-2024 05-01-2023 Mycoses (20 sources) Candidiasis of skin; Translations: [Candidiasis of skin and nail] Onset: 03-05-2024 03-05-2024 Episodic Other and unspecified benign neoplasm (1 source) Benign neoplasm, unspecified site Onset: 12-13-2021 Resolved: 12-13-2021 Episodic Other female genital disorders (1 source) Other specified noninflammatory disorders of vagina; Translations: [OTH SPEC NONINFLAMMATORY D/O VAGINA] Onset: 03-09-2022 Episodic Other gastrointestinal disorders (1 source) Constipation, unspecified Onset: 08-14-2021 Resolved: 08-14-2021 Episodic Other gastrointestinal disorders (1 source) Other specified symptoms and signs involving the digestive system and abdomen Onset: 12-13-2021 Resolved: 12-13-2021 Episodic Other lower respiratory disease (3 sources) Cough; Translations: [COUGH] Onset: 12-20-2016 Episodic Other lower respiratory disease (13 sources) Cough; Translations: [Acute cough] Onset: 04-15-2024 Resolved: 05-18-2024 04-15-2024 Episodic Other non-traumatic joint disorders (20 sources) Shoulder pain; Translations: [Pain in unspecified shoulder] Onset: 05-01-2023 05-01-2023 Episodic Other nutritional; endocrine; and metabolic disorders (20 sources) Abnormal weight gain; Translations: [Abnormal weight gain] Onset: 01-06-2024 01-06-2024 Episodic Other nutritional; endocrine; and metabolic disorders (20 sources) Excessive thirst; Translations: [Polydipsia] Onset: 01-06-2024 01-06-2024 Episodic Other screening for suspected conditions (not mental disorders or infectious disease) (20 sources) Patient encounter status; Translations: [Encounter for screening mammogram for malignant neoplasm of breast] Onset: 03-07-2022 Episodic Other skin disorders (20 sources) Night sweats; Translations: [Generalized hyperhidrosis] Onset: 07-30-2023 Resolved: 07-30-2023 07-30-2023 Episodic Otitis media and related conditions (20 sources) Acute suppurative otitis media without spontaneous rupture of ear drum; Translations: [Acute suppurative otitis media without spontaneous rupture of ear drum, left ear] Onset: 06-26-2023 Resolved: 12-02-2023 06-26-2023 Episodic Residual codes; unclassified (20 sources) Menopause present; Translations: [Asymptomatic menopausal state] Onset: 03-05-2024 06-30-2016 Episodic Residual codes; unclassified (20 sources) Flushing; Translations: [Flushing] Onset: 07-30-2023 07-30-2023 Episodic Skin and subcutaneous tissue infections (20 sources) Abscess; Translations: [Cutaneous abscess, unspecified] Onset: 01-06-2024 Resolved: 02-03-2024 02-03-2024 Episodic Spondylosis; intervertebral disc disorders; other back problems (20 sources) Cervical radiculopathy; Translations: [Radiculopathy, cervical region] Onset: 03-19-2015 06-26-2023 Episodic Results Test Name Value Interpretation Reference Range Facility No Panel Informationon 04-27 Alona King MA 04/27/2024 10:06 AM L Inj/Asp: L subacromial bursa on 04/27/2024 9:43 AM Indications: pain Details: 25 G needle, ultrasound-guided anterolateral approach Medications: 12 mg betamethasone acetate-betamethasone sodium phosphate 6 (3-3) MG/ML Procedure, treatment alternatives, risks and benefits explained, specific risks discussed. Consent was given by the patient. Immediately prior to procedure a time out was called to verify the correct patient, procedure, equipment, residential support worker and site/side marked as required. Patient was prepped and draped in the usual sterile fashion. [facility] XR Shoulder - left 2 Viewson 02-25-2024 Imaging Result: Two views, AP and Lateral, in the office taken today saved to the permanent record shows post surgical change with acromioplasty/partial distal clavulectomy with appropriate coplaning. No acute fracture, dislocation, tumor or infection seen. [facility] Radiology Study observation (narrative) [facility] Main OR Intraoperative Recor don 02-11-2024 Main OR Intraoperative Record Main OR Intraoperative Record IntraOp Document Type FT Summary Primary Physician: Eliazar Brooks DO Finalized Date/Time: 02/11/24 14:09:06 Pt. Name: YAMILKA VASQUEZ/Sex: 1970 Female Med Rec #: [id number] Physician: Eliazar Brooks DO Financial #: [id number] Pt. Type: A Room/Bed: Admit/Disch: 02/10/24 11:39:41 - 02/10/24 17:20:00 Institution: Case Times FT Entry 1 Patient Times In Room 02/10/24 14:21:00 Out Room 02/10/24 15:35:00 Procedure Times Start 02/10/24 14:46:00 Stop 02/10/24 15:31:00 Anesthesia Times Start 02/10/24 14:21:00 Stop 02/10/24 15:35:00 Last Modified By: Adams Pak 02/10/24 15:48:54 General Comments: 02/11/24 Chart opened to review and send charges LRoth CSFA Case Attendance FT Entry 1 Entry 2 Entry 3 Case Attendee Cynthia DNP, FINANCIAL OFFICER, Health system, Eliazar Kate INSTRUMENT CHECKER, Marlyn Moffett. Role Performed FINANCIAL OFFICER Surgeon - Primary Scrub - Primary Time In 02/10/24 14:21:00 02/10/24 14:21:00 02/10/24 14:21:00 Time Out 02/10/24 15:35:00 02/10/24 15:35:00 02/10/24 15:35:00 Procedure SHOULDER ARTHROSCOPY W/ SHOULDER ARTHROSCOPY W/ SHOULDER ARTHROSCOPY W/ POSSIBLE REPAIR(Left) POSSIBLE REPAIR(Left) POSSIBLE REPAIR(Left) Comments DR ENRIQUEZ SUPERVISING Last Modified By: Adams Pak Terry T Sweene, Terry T 02/10/24 15:49:04 02/10/24 15:49:04 02/10/24 15:49:04 Entry 4 Entry 5 Case Attendee Adams Pak Laura C Role Performed Flaking Roll Operator - Primary Scrub - Primary Time In 02/10/24 14:21:00 02/10/24 14:21:00 Time Out 02/10/24 15:35:00 02/10/24 15:35:00 Procedure SHOULDER ARTHROSCOPY W/ SHOULDER ARTHROSCOPY W/ POSSIBLE REPAIR(Left) POSSIBLE REPAIR(Left) Comments Last Modified By: Adams Pak Terry T 02/10/24 15:49:04 02/10/24 15:49:04 General Comments: LATESHA HENRIQUEZ - MARCELLE STUDENT HERE FOR CASE. Aurora PAK RN. Perioperative Protocols FT Pre-Care Text: Implements protective measures prior to operative or invasive procedure, confirms identity before the operative or invasive procedure, verifies operative procedure, surgical site, and laterality Entry 1 Procedure(s) SHOULDER ARTHROSCOPY W/ Patient Identity Birthday, ID Band POSSIBLE REPAIR(Left) Verified (select at Check, Patient least 2): Participation Consents / H and P Anesthesia Consent, Operative Site Present Verified H&P, Surgery/Procedure Marking Verified Consent Surgical Site Yes Laterality Verified Yes Verified Procedure Verified Yes Correct Patient Yes Position Verified Prep Dry Yes PreOp Antibiotic Yes Given Time Out Cynthia BROWN CRNA, Queen Time Out Complete 02/10/24 14:35:00 Participants N., Eliazar Brooks DO, Wilhelm CST, Macie C, Adams Pak, Naomi Garcia Outcomes Met? Yes Last Modified By: Adams Pak 02/10/24 15:01:23 Post-Care Text: The patient is free from signs and symptoms of injury caused by extraneous objects Allergy Information FT Pre-Care Text: Verifies allergies Entry 1 Allergies Reviewed? Yes Allergies Reviewed Self/Patient With Outcomes Met? Yes Last Modified By: Adams Pak 02/10/24 15:01:48 Post-Care Text: The patient received appropriate medication(s) safely administered during the perioperative period Surgical Procedures FT Entry 1 Procedure Description Procedure SHOULDER ARTHROSCOPY W/ Modifiers Left POSSIBLE REPAIR Surgeon Description LEFT SHOULDER ATHROSCOPY, SUBACROMIAL DECOMPRESSION, ACROMIOPLASTY, EXTENSIVE DEBRIDEMENT Primary Procedure Yes Primary Surgeon Eliazar Brooks DO Start 02/10/24 14:46:00 Stop 02/10/24 15:31:00 Anesthesia Type General Surgical Service Orthopedics Wound Class 1 - Clean Last Modified By: Adams Pak 02/10/24 15:49:07 General Case Data FT Pre-Care Text: Classifies surgical wound, implements aseptic technique, initiates traffic control Entry 1 Case Information OR OR 5 FT Case Level Level 4 Wound Class 1 - Clean Specialty Orthopedics ASA Class 3 Preop Diagnosis IMPINGEMENT SYNDROME OF Postop Same As Preop Yes LEFT SHOULDER Postop Diagnosis IMPINGEMENT SYNDROME OF Outcomes Met? Yes LEFT SHOULDER Last Modified By: Melinda Hills CST 02/11/24 14:09:04 Post-Care Text: The patient is free from signs and symptoms of infection Skin Assessment (Pre Procedure) FT Pre-Care Text: Implements protective measures to prevent skin/ tissue injury due to thermal or mechanical sources Evaluates for signs and symptoms of physical injury to skin and tissue Entry 1 Skin Integrity Intact, [place], Warm, & Skin Abnormality No Dry Outcomes Met? Yes Last Modified By: Adams Pak 02/10/24 15:02:50 Post-Care Text: The patient is free from signs and symptoms of injury caused by extraneous objects Patient Positioning FT Pre-Care Text: Identifies physical alterations that require additional precautions for procedure-specific positioning, verifies presence of prosthetics (more content not included)... Normal [facility] Operative Reporton Operative Report Operative Report SURGERY DATE: 02/10/2024 RESIDENT INSPECTOR: Marlyn Kate C.F.A. PREOPERATIVE DIAGNOSIS: Left shoulder impingement syndrome with probable rotator cuff tear POSTOPERATIVE DIAGNOSIS: Left shoulder impingement syndrome with probable rotator cuff tear with degenerative labral fraying, hypertrophic degenerative acromioclavicular joint OPERATION: Left shoulder arthroscopy with extensive glenohumeral debridement, subacromial decompression, partial distal clavicectomy, mini-open rotator cuff repair, application of UltraSling ANESTHESIA: General/block combination ESTIMATED BLOOD LOSS: 25 cc SPECIMEN: None IMPLANTS UTILIZED: Quantity one Arthrex 4.75 SwiveLock HISTORY AND INDICATIONS: Yamilka is a 53-year-old female with progressive left shoulder pain that has been recalcitrant to conservative injection care. Please see office notes, History and Physical, as well as MRI. The pros, cons, risks, benefits, and reasonable expectations of above procedure were discussed, consent form signed and charted, sites markedly preoperatively, all questions answered preoperatively, antibiotics provided weight based per protocol. PROCEDURE: Yamilka was taken to the Operating Room and placed in supine position. Anesthesia was provided. She was placed on the beachchair table. Shoulder exam with mild stiffness. Shoulder was gently manipulated with full motion. The shoulder was prepped and draped in sterile fashion. Once time-out was confirmed, a vertical posterior portal incision was made and the arthroscope entered the shoulder joint. General inspection showed mild degenerative changes of the humeral head. Glenoid was intact. The labrum had a mild amount of fraying. The biceps anchor was intact to inspection and probing. There was a 1.5 cm anterior tear of the supraspinatus. The infraspinatus and subscapularis were intact. Anterior portal was established utilizing a 4.0 shaver. Extensive debridement was performed of the frayed labrum as well as rotator cuff stump and general chondroplasty of the humeral head. Pre and post pictures were taken. Axillary pouch was negative. Attention was then directed to the subacromial space. There was a type 2 acromion with a moderately hypertrophic acromioclavicular joint. From a lateral portal incision utilizing a 90-degree [place] wand as well as 5.0 bone cutter, a subtotal bursectomy and acromioplasty with partial distal clavicectomy were performed. Once adequate decompression was achieved, final pictures were taken. One simple 4-0 nylon suture was placed in each of the three portal incisions. A 1 anterolateral horizontal modified incision was made. Deltoid was split vertically. Hematoma was evacuated. The rotator cuff had a veil of tissue over it most likely skewing the MRI results. This was debrided. There was a full-thickness 1.5 cm supraspinatus tear that was very repairable. Tissue quality was poor to medium. Utilizing a 4-strand primary row repair with a Scorpion needle, a #2 fiber, and a #2 TigerTape in a horizontal mattress fashion was sutured with a shuttle. A 4.75 Arthrex SwiveLock was punched and tapped in place with anatomic repair with good purchase. No dog ears or remnants seen. Once appropriately fixed, adequate decompression and stabilization of the acromioclavicular joint were seen. It was copiously irrigated out. The deltoid ligament was closed with 0 Vicryl suture, 3-0 Vicryl suture closed the subcutaneous tissues, and adriana were applied. Bacitracin, Adaptic, and well-padded sterile soft dressing were applied. UltraSling was provided from our office. The patient was awakened from anesthesia and transferred to the Recovery Room in stable and satisfactory condition. CASE: Clean and elective COUNTS: Sponge and needle count correct SPECIMEN: None PATIENT CONDITION: Satisfactory Aguila Santamaria Dictated: 02/10/2024 [id number] Transcribed: 02/10/2024 [facility] Comment on above: Result Comment: Elec tronically Signed By: Eliazar Brooks DO\.br\Date and Time Signed: 02/11/24 07:18 EDT Discharge Instructionson Discharge Instructions Discharge Instructions YAMILKA VASQUEZ :1970 Visit Date:02/10/2024 Inpatient Discharge Instructions Your Care Team Admitting Physician - Eliazar Brooks DO Referring Physician - Eliazar Brooks DO Reason for Your Visit M75.42 Your Diagnosis Impingement of left shoulder This Is Your Medications List acetaminophen (Tylenol) acetaminophen-oxycodo ne (Percocet 5 mg-325 mg oral tablet) cyanocobalamin (Vitamin B12) ergocalciferol (Vitamin D) escitalopram (escitalopram 10 mg Tab) multivitamin with minerals (Multivitamins and Minerals) naproxen (Naprosyn 500 mg Tab) ocrelizumab (Ocrevus 300 mg/10 mL intravenous solution) trazodone (traZODONE 50 mg Tab) Procedure History Carpal tunnel, Ectopic . What to do next Instructions From Your Doctor Event Name Event Result Discharge Activity Ambulate as tolerated, Arrange for a responsible adult supervision for 24 hours, Expect mild pain, Expect minimal amount of drainage and/or bleeding, Do not lift more than 5 lbs Discharge Restrictions No driving, Do not operate machinery or tools, Do not make important decisions for 24 hours, Do not drink alcoholic beverages for 24 hours Discharge Diet(s) Regular, Drink liquids and eat a light meal Call Your Doctor For Persistent or heavy bleeding, Temperature above 101.5 degrees, Redness, swelling, or pus at operative site, Severe pain at the operative site, Persistent vomiting Wound Care Keep incision dry, Remove dressing as instructed Remove Dressing On 2 Discharge Instructions Discharge Instructions New Follow Up Appointments after Discharge Follow Up with YUE Santamaria When: 02/25/2024 02:30 PM EDT Comments: Keep scheduled appointment Call for any problems. Where: [address] [place], [place] [id number]- [facility] (1) Medications What How Much When Why Instructions Next Dose Changed acetaminophen (Tylenol) 1,000 Milligram By Mouth Every 6 hours as needed for as needed for pain Changed cyanocobalamin (Vitamin B12) 2,500 Microgram Sublingual Every day Changed naproxen (Naprosyn 500 mg Tab) 1 Tablets By Mouth 2 times a day as needed for Pain Unchanged acetaminophen-oxycodo ne (Percocet 5 mg-325 mg oral tablet) See instructions Impingement of left shoulder Take one to two oral every 4 hours as needed for shoulder surgical pain. Pickup at [facility] Unchanged ergocalciferol (Vitamin D) 1,200 International unit By Mouth Every day Unchanged escitalopram (escitalopram 10 mg Tab) 1 Tablets By Mouth Every day Unchanged multivitamin with minerals (Multivitamins and Minerals) 1 tab By Mouth Every day Unchanged ocrelizumab (Ocrevus 300 mg/ 10 mL intravenous solution) Every 6 months Unchanged trazodone (traZODONE 50 mg Tab) 1 Tablets By Mouth Once a day (at bedtime) as needed for Sleep Pharmacy Information [id number]: [address] [place], [place] [phone] Test Results No qualifying data available. Allergies No Known Allergies Problems Ongoing - Any problem that you are currently receiving treatment for. Menopause Mini stroke MS - Multiple sclerosis Smoker Education Materials [place], [place] [facility] AFTER YOUR SHOULDER ARTHROSCOPY 1. Diet Begin with a liquid diet and advance to your normal diet as tolerated. 2. Activity You may gradually increase your activity as tolerated. Until your first post-operative visit, you may want to elevate your arm higher than your heart, whenever you are sitting or lying down. The swelling will gradually decrease after your surgery. Increased swelling is usually a sign of over-activity and should be a signal for you to be less active and apply ice as needed. You are encouraged to use your shoulder as this is comfortably tolerated. Do not forcefully perform exercises until you have permission. Driving Driving is legal. But if you are involved in an accident, you must be able to prove that you maintained full control of your vehicle. For this reason, it is advised that you do not drive until your strength returns. Similarly, all sports activities are discouraged, at least until your first post-operative visit at which time we will discuss how and when to resume sports. 4. Pain Usually this is the result of over-activity and should respond well to rest, ice and elevation. If this does not provide relief, take the pain medication as directed but do not return to activity. Pain is a protective mechanism that signals potential injury and should not be masked by medication when you are active. If pain persists despite rest, elevation and medication, contact your surgeon. You will be given a prescription for pain medications prior to leaving the hospital. Please inform us of any known drug allergy. If you have any (more content not included)... Normal [facility] Comment on above: Result Comment: Elec tronically Signed By: Aime ROSA, Brigida Lantigua\.kimberly\Date and Time Signed: 02/10/24 15:46 EDT Main OR PACU I Recordon 01-19 Main OR PACU I Record Main OR PACU I Rec ord PACU Phase I Document Type FT Summary Primary Physician: Eliazar Brooks DO Finalized Date/Time: 02/10/24 16:23:54 Pt. Name: YAMILKA VASQUEZ Ayleen Perez./Sex: 1970 Female Med Rec #: [id number] Physician: Eliazar Brooks DO Financial #: [id number] Pt. Type: A Room/Bed: Admit/Disch: 02/10/24 11:39:41 - Institution: Case Times PACU I FT Pre-Care Text: Identifies barriers to communication and implements measures to provide psychological support Develops individualized plan of care, and ensures continuity of care Maintains patient's dignity and privacy, and maintains patient confidentiality Identifies and reports philosophical, cultural, and spiritual beliefs and values Identifies individual values and wishes concerning care Implements aseptic technique, and administers prescribed antibiotic therapy and immunizing agents as ordered Evaluates postoperative tissue perfusion Implements thermoregulation measures, and monitors body temperature Evaluates postoperative respiratory status Evaluates postoperative cardiac status Evaluates postoperative neurological status Assesses pain control, collaborated in initiating patient-controlled analgesia and implements alternative methods of pain control Verifies allergies, administers prescribed medications and solutions, evaluates response to medications Entry 1 In PACU I 02/10/24 15:37:00 Discharge from PACU 02/10/24 16:07:00 I Outcomes Met? Yes Last Modified By: Meera Rose RN 02/10/24 16:23:40 Post-Care Text: The patient demonstrates knowledge of the expected response to the operative or invasive procedure The patient's care is consistent with the individualized perioperative plan of care The patient's right to privacy is maintained The patient's value system, lifestyle, ethnicity, and culture are considered, respected, and incorporated into the perioperative plan of care The patient participates in decisions affecting his or her perioperative plan of care The patient is free from signs and symptoms of infection The patient has wound/tissue perfusion consistent with or improved from baseline levels established preoperatively The patient is at or returning to normothermia at the conclusion of the immediate postoperative period The patient's respiratory function is consistent with or improved from baseline levels established preoperatively The patient's cardiovascular status is consistent with or improved from baseline levels established preoperatively The patient's cardiovascular status is consistent with or improved from baseline levels established preoperatively The patient demonstrates and/or reports adequate pain control throughout the perioperative period The patient received appropriate medication(s), safely administered during the perioperative period Acuity Level PACU I FT Entry 1 Start Time 02/10/24 15:37:00 Stop Time 02/10/24 16:07:00 Acuity Level Acuity Level I Last Modified By: Meera Rose RN 02/10/24 16:23:53 Finalized By: Meera Rose RN Document Signatures Signed By: Meera Rose RN 02/10/24 16:23 Normal [facility] Main OR PACU II Recordon Main OR PACU II Record Main OR PACU II Record PACU Phase II Document Type FT Summary Primary Physician: Eliazar Brooks DO Finalized Date/Time: 02/10/24 18:07:34 Pt. Name: YAMILKA VASQUEZ./Sex: 1970 Female Med Rec #: [id number] Physician: Eliazar Brooks DO Financial #: [id number] Pt. Type: A Room/Bed: [place] [address] Admit/Disch: 02/10/24 11:39:41 - Institution: Case Times PACU II FT Pre-Care Text: Identifies barriers to communication and implements measures to provide psychological support and determines knowledge level Develops individualized plan of care, and ensures continuity of care Maintains patient's dignity and privacy, and maintains patient confidentiality Identifies and reports philosophical, cultural, and spiritual beliefs and values Identifies individual values and wishes concerning care administers prescribed antibiotic therapy and immunizing agents as ordered, Evaluates postoperative tissue perfusion Implements thermoregulation measures, and monitors body temperature Evaluates postoperative respiratory status Evaluates postoperative cardiac status Evaluates postoperative neurological status Assesses pain control, collaborated in initiating patient-controlled analgesia and implements alternative methods of pain control Verifies allergies, administers prescribed medications and solutions, evaluates response to medications Entry 1 In PACU II 02/10/24 16:05:00 Discharge from PACU 02/10/24 17:20:00 II Outcomes Met? Yes Last Modified By: Sherron Deleon RN 02/10/24 18:07:32 Post-Care Text: The patient demonstrates knowledge of the expected response to the operative or invasive procedure The patient's care is consistent with the individualized perioperative plan of care The patient's right to privacy is maintained The patient's value system, lifestyle, ethnicity, and culture are considered, respected, and incorporated into the perioperative plan of care The patient participates in decisions affecting his or her perioperative plan of care. The patient is free from signs and symptoms of infection The patient has wound/tissue perfusion consistent with or improved from baseline levels established preoperatively The patient is at or returning to normothermia at the conclusion of the immediate postoperative period The patient's respiratory function is consistent with or improved from baseline levels established preoperatively The patient's cardiovascular status is consistent with or improved from baseline levels established preoperatively The patient's neurological status is consistent with or improved from baseline levels established preoperatively The patient demonstrates and/or reports adequate pain control throughout the perioperative period The patient received appropriate medication(s), safely administered during the perioperative period Finalized By: Sherron Deleon RN Document Signatures Signed By: Sherron Deleon RN 02/10/24 18:07 Normal [facility] Main OR Preoperative Recordo n 02-10-2024 Main OR Preoperative Record Main OR Preoperative Record PreOp Document Type FT Summary Primary Physician: Eliazar Brooks DO Finalized Date/Time: 02/10/24 15:51:36 Pt. Name: YAMILKA VASQUEZ/Sex: 1970 Female Med Rec #: [id number] Physician: Eliazar Brooks DO Financial #: [id number] Pt. Type: A Room/Bed: Admit/Disch: 02/10/24 11:39:41 - Institution: Case Times PreOp FT Pre-Care Text: Verifies consent for planned procedure, identifies individual values and wishes concerning care, includes family members in perioperative teaching Entry 1 Patient Times. In Pre Surgery 02/10/24 11:50:00 Out Pre Surgery 02/10/24 14:19:00 Outcomes Met? Yes Last Modified By: Adams Pak 02/10/24 14:59:17 Post-Care Text: The patient participates in decisions affecting his or her perioperative plan of care Finalized By: Adams Pak Document Signatures Signed By: Adams Pak 02/10/24 14:59 Adams Pak 02/10/24 15:51 Normal [facility] Proceduralon 02-10-2024 Procedural Procedural Patient: YAMILKA VASQUEZ Age: 53 years Sex: Female : 1970 Associated Diagnoses: None Author: Cynthia BROWN CRNA, Queen Justen Procedure Nerve Block Block Type: Interscalene block. Laterality: Left. Informed consent for anesthesia management: Anesthesia options discussed including nerve block, Description of the procedure, risks, benefits, and alternatives was provided, The patient's questions were addressed. Time out: Confirmed correct patient, procedure and site. Time: Date/Time 02/10/2024 13:30:00. Indication: Block for postoperative pain management as requested by surgeon. Anesthesia Method: IV Sedation with monitored anesthesia care, The patient remained awake and able to interact in a meaningful way throughout the procedure. Preparation: The patient was placed in the following position Supine, Continuous pulse oximetry applied, Using maximal sterile barrier technique per current [facility] guidelines including hand hygeine, Guidance (Ultrasound used to identify anatomical landmarks, Using sterile gel and probe covers, Permanent image retained), The site was prepped with ChloraPrep. Procedure: Anesthetic Agent 10cc of 0.5% Ropivicaine, 10ml of Exparel., Needle was inserted without pain or parasthesia in the conscious patient, Number of attempts 1, Negative attempt at aspiration for blood, Medial and lateral spread of the anesthestic was observed, Periodic negative attempts at aspiration of blood were made as the local was injected, No pain or parathesia were elicited with injection of the anesthetic in the conscious patient, It was idetified that the correct anesthetic agent was administered to the correct site. Complications: The patient tolerated the procedure as expected, Procedure completed by Queen Cynthia CRNA under Dr Enriquez's supervision.. Normal [facility] Inpatient Patient Summaryon 02-06-2024 Inpatient Patient Summary Inpatient Patient Summary [address] [address] [facility] Clinical Discharge Instructions PERSON INFORMATION Name: YAMILKA VASQUEZ PHYSICIANS Admitting Physician: Eliazar Brooks DO Attending Physician: Eliazar Brooks DO PCP: FRANCES AGUILERA CNP Discharge Diagnosis: Impingement of left shoulder Comment: PATIENT EDUCATION INFORMATION Instructions: Zbigniew - After Your Shoulder Arthroscopy (Revised 06/17/14) (CUSTOM) Medication Leaflets: Follow up: With: Address: When: Eliazar Brooks [address] [place] [address] [employer] (1) Comments: Keep scheduled appointment Type Location Start [facility] Surgery [facility] Surgical Services 02/10/2024 2:30 PM 02/10/2024 3:30 PM Confirmed MEDICATION LIST Medications to Continue with No Changes Other Medications acetaminophen (Tylenol) 1,000 Milligram By Mouth. cyanocobalamin (Vitamin B12) ergocalciferol (Vitamin D) 1,200 International unit By Mouth every day. escitalopram (escitalopram 10 mg Tab) 1 Tablets By Mouth every day. multivitamin with minerals (Multivitamins and Minerals) 1 tab By Mouth every day. naproxen (Naprosyn 500 mg Tab) 1 Tablets By Mouth 2 times a day. ocrelizumab (Ocrevus 300 mg/10 mL intravenous solution) every 6 months. trazodone (traZODONE 50 mg Tab) 1 Tablets By Mouth once a day (at bedtime) as needed Sleep. No Longer Take the Following Medications buPROPion (Wellbutrin 75 mg Tab) 1 Tablets By Mouth every day. conjugated estrogens-medroxyPROG ESTERone (Prempro) Unknown By Mouth every day. cyclobenzaprine (cyclobenzaprine 10 mg Tab) 2 Tablets By Mouth 2 times a day as needed for spasm. dimethyl fumarate (Tecfidera) 240 Milligram By Mouth 2 times a day. Comment: Normal [facility] Outpatient Surgery Discharge Instructionon 02-06-2024 Outpatient Surgery Discharge Instruction Outpatient Surgery Discharge Instruction [address] [address] Patient Discharge Instructions PERSON INFORMATION Name: YAMILKA VASQUEZ Date of : 1970 Current Date: 02/06/2024 18:01:15 PHYSICIANS Admitting Physician: Eliazar Brooks DO Discharge Diagnosis: Impingement of left shoulder YAMILKA VASQUEZ has been given the following list of follow-up instructions, prescriptions, and patient education materials: PATIENT FOLLOW-UP INFORMATION Diet: Regular, Drink liquids and eat a light meal Discharge Activity: Ambulate as tolerated, Arrange for a responsible adult supervision for 24 hours, Expect mild pain, Expect minimal amount of drainage and/or bleeding, Do not lift more than 5 lbs Discharge Restrictions: No driving, Do not operate machinery or tools, Do not make important decisions for 24 hours, Do not drink alcoholic beverages for 24 hours Call Your Doctor For: Persistent or heavy bleeding, Temperature above 101.5 degrees, Redness, swelling, or pus at operative site, Severe pain at the operative site, Persistent vomiting Wound Care Instructions: Keep incision dry, Remove dressing as instructed Remove Your Dressing In 2 Days IF UNABLE TO CONTACT YOUR PHYSICIAN AND YOU FEEL IT IS AN EMERGENCY, GO TO THE NEAREST EMERGENCY ROOM OR CALL 911 IPEDRO SHIRLEY F, have received the attached patient education materials/instruction s and have verbalized understanding: May we do a follow up call? Yes No I was present when discharge instructions were given Patient Signature Date Clinican/Nurse Signature Date Follow up: With: Address: When: Eliazar Brooks [address] [place] [id number] [employer] (1) Comments: Keep scheduled appointment Type Location Start [facility] Surgery [facility] Surgical Services 02/10/2024 2:30 PM 02/10/2024 3:30 PM Confirmed Pharmacy Information: You may receive a survey from [employer] asking you to rate your care experience. Your feedback is important and will help us understand what we do well and how we can improve the quality of care we provide to you, your loved ones and our community. It?s an honor to serve you. Thank you for choosing [facility] HERE ARE THE MEDICATION CHANGES THAT OCCURRED DURING YOUR HOSPITAL STAY Medications to Continue with No Changes Other Medications acetaminophen (Tylenol) 1,000 Milligram By Mouth. cyanocobalamin (Vitamin B12) ergocalciferol (Vitamin D) 1,200 International unit By Mouth every day. escitalopram (escitalopram 10 mg Tab) 1 Tablets By Mouth every day. multivitamin with minerals (Multivitamins and Minerals) 1 tab By Mouth every day. naproxen (Naprosyn 500 mg Tab) 1 Tablets By Mouth 2 times a day. ocrelizumab (Ocrevus 300 mg/10 mL intravenous solution) every 6 months. trazodone (traZODONE 50 mg Tab) 1 Tablets By Mouth once a day (at bedtime) as needed Sleep. No Longer Take the Following Medications buPROPion (Wellbutrin 75 mg Tab) 1 Tablets By Mouth every day. conjugated estrogens-medroxyPROG ESTERone (Prempro) Unknown By Mouth every day. cyclobenzaprine (cyclobenzaprine 10 mg Tab) 2 Tablets By Mouth 2 times a day as needed for spasm. dimethyl fumarate (Tecfidera) 240 Milligram By Mouth 2 times a day. PATIENT EDUCATION INFORMATION Instructions: [place], [place] [facility] AFTER YOUR SHOULDER ARTHROSCOPY 1. Diet Begin with a liquid diet and advance to your normal diet as tolerated. 2. Activity You may gradually increase your activity as tolerated. Until your first post-operative visit, you may want to elevate your arm higher than your heart, whenever you are sitting or lying down. The swelling will gradually decrease after your surgery. Increased swelling is usually a sign of over-activity and should be a signal for you to be less active and apply ice as needed. You are encouraged to use your shoulder as this is comfortably tolerated. Do not forcefully perform exercises until you have permission. Driving Driving is legal. But if you are involved in an accident, you must be able to prove that you maintained full control of your vehicle. For this reason, it is advised that you do not drive until your strength returns. Similarly, all sports activities are discouraged, at least until your first post-operative visit at which time we will discuss how and when to resume sports. 4. Pain Usually this is the result of over-activity and should respond well to rest, ice and elevation. If this does not provide relief, take the pain medication as (more content not included)... Normal [facility] XR Chest 2 Viewson XR Chest 2 Views Exam Date/Time: 02/05/2024 10:22 EDT Reason for Exam: P.A.T. Report IMPRESSION: NO RADIOGRAPHIC EVIDENCE OF ACTIVE DISEASE IN THE CHEST. CLINICAL INFORMATION: P.A.T. COMPARISON: None available. FINDINGS: Two views of the chest were obtained. Heart and mediastinum appear normal. The lungs appear clear. Visualized bony thorax and remainder of the chest appears unremarkable. Ordering Provider: Mynor Enriquez FINAL REPORT Dictated: 02/06/2024 10:53 am Charles Nava MD Signed (Electronic Signature): 02/06/2024 10:53 am Signed by: Charles Nava MD Transcribed by: JANETH Technologist: SABRA Technical Comments Radiation Dose: Ka,r in mGy = . DAP = . Normal [facility] BMPon 02-05-2024 Anion gap [Moles/Vol] 11 mmol/L Normal 6-16 [facility] Comment on above: Performed By: #### 2 [id number] #### [facility] Laboratory [address] [place] [address] Calcium [Mass/Vol] 9.4 mg/dL Normal 8.9-11.1 [facility] Comment on above: Performed By: #### 2 [id number] #### [facility] [address] [place] [address] Chloride [Moles/Vol] 104 mmol/L Normal 101-111 [facility] Comment on above: Performed By: #### 2 [id number] #### [facility] [address] [place] [address] CO2 [Moles/Vol] 31 mmol/L Normal 21-31 [facility] Comment on above: Performed By: #### 2 [id number] #### [facility] [address] [place] [address] Creatinine [Mass/Vol] 0.9 mg/dL Normal 0.5-1.3 [facility] Comment on above: Performed By: #### 2 [id number] #### [facility] [address] [place] [address] Glucose [Mass/Vol] 93 mg/dL Normal 55-199 [facility] Comment on above: Performed By: #### 2 [id number] #### [facility] [address] [place] [address] Potassium [Moles/Vol] 4.1 mmol/L Normal 3.5-5.3 [facility] Comment on above: Performed By: #### 2 [id number] #### [facility] [address] [place] [address] Sodium [Moles/Vol] 142 mmol/L Normal 135-145 [facility] Comment on above: Performed By: #### 2 [id number] #### [facility] [address] [place] [address] Urea nitrogen [Mass/Vol] 11 mg/dL Normal 5-21 [facility] Comment on above: Performed By: #### 2 [id number] #### [facility] [address] [place] [address] Urea nitrogen/Creatinine [Mass ratio] 12 No Units Normal 10-20 [facility] Comment on above: Performed By: #### 2 [id number] #### [facility] [address] [place] [address] CBC w/ Auto Diffon 4 Basophils/100 WBC (Bld) 0.6 % Normal 0.0-2.0 [facility] Comment on above: Performed By: #### 2 [id number] #### [facility] [address] [place] [address] Basophils/Leukocytes Auto (Bld) [Pure # fraction] 0.0 E9/L Normal 0.0-0.2 [facility] Comment on above: Performed By: #### 2 [id number] #### [facility] [address] [place] [address] Eosinophils (Bld) [#/Vol] 0.1 E9/L Normal 0.0-0.5 [facility] Comment on above: Performed By: #### 2 [id number] #### [facility] [address] [place] [address] Eosinophils/100 WBC (Bld) 1.2 % Normal 0.0-8.0 [facility] Comment on above: Performed By: #### 2 [id number] #### [facility] [address] [place] [address] Erythrocyte distribution width (RBC) [Ratio] 17.5 % High 10.9-14.2 [facility] Comment on above: Performed By: #### 2 [id number] #### [facility] [address] [place] [address] Hematocrit (Bld) [Volume fraction] 37.9 % Normal 34.0-46.0 [facility] Comment on above: Performed By: #### 2 [id number] #### [facility] [address] [place] [address] Hemoglobin (Bld) [Mass/Vol] 12.6 g/dL Normal 12.0-16.0 [facility] Comment on above: Performed By: #### 2 [id number] #### [facility] [address] [place] [address] Lymphocytes (Bld) [#/Vol] 0.8 E9/L Low 1.0-4.0 [facility] Comment on above: Performed By: #### 2 [id number] #### [facility] [address] [place] [address] Lymphocytes/100 WBC (Bld) 11.1 % Low 14.0-50.0 [facility] Comment on above: Performed By: #### 2 [id number] #### [facility] [address] [place] [address] MCH (RBC) [Entitic mass] 27.8 pg Normal 27.0-34.0 [facility] Comment on above: Performed By: #### 2 [id number] #### [facility] [address] [place] [address] MCHC (RBC) [Mass/Vol] 33.2 g/dL Normal 31.4-36.0 [facility] Comment on above: Performed By: #### 2 [id number] #### [facility] [address] [place] [address] MCV (RBC) [Entitic vol] 83.9 fL Normal 80.0-100.0 [facility] Comment on above: Performed By: #### 2 [id number] #### [facility] [address] [place] [address] Monocytes (Bld) [#/Vol] 0.8 E9/L Normal 0.2-1.0 [facility] Comment on above: Performed By: #### 2 [id number] #### [facility] [address] [place] [address] Neutrophils (Bld) [#/Vol] 5.4 E9/L Normal 2.0-7.5 [facility] Comment on above: Performed By: #### 2 [id number] #### [facility] [address] [place] [address] Neutrophils/100 WBC (Bld) 76.4 % High 36.0-75.0 [facility] Comment on above: Performed By: #### 2 [id number] #### [facility] [address] [place] [address] Platelet 195.0 E9/L Normal 150.0-500.0 [facility] Comment on above: Performed By: #### 2 [id number] #### [facility] [address] [place] [address] Platelet mean volume (Bld) [Entitic vol] 10.4 fL Normal 6.4-10.8 [facility] Comment on above: Performed By: #### 2 [id number] #### [facility] [address] [place] [address] RBC (Bld) [#/Vol] 4.5 E12/L Normal 4.3-5.9 [facility] Comment on above: Performed By: #### 2 [id number] #### [facility] [address] [place] [address] WBC corrected for nucl RBC Auto (Bld) [#/Vol] 7.1 E9/L Normal 4.0-11.0 [facility] Comment on above: Performed By: #### 2 [id number] #### [facility] [address] [place] [address] eGFRon 02-05-2024 eGFR 75 mL/min/1.73 m2 Normal >=59 [facility] Comment on above: Order Comment: Order added by Discern Expert. Performed By: #### 1 [id number] ####[facility] [id number] [place] [address] TBH UA (CLEAN/CATCH) MICROSC OPIC IF INDICATEon 01-23-2024 BILIRUBIN URINE Negative NEGATIVE [facility] BLOOD URINE Negative NEGATIVE [facility] Clarity (U) CLEAR CLEAR [facility] Color (U) LT. YELLOW YELLOW [facility] GLUCOSE URINE UA Negative NEGATIVE mg/dL [facility] Ketones Ql (U) Negative NEGATIVE mg/dL [facility] Leukocyte esterase Test strip Ql (U) Negative NEGATIVE [facility] NITRITE URINE Negative NEGATIVE [facility] pH (U) 6.5 [pH] 5.0 - 9.0 [facility] PROTEIN URINE Negative NEG/TRACE mg/dL [facility] SPECIFIC GRAVITY URINE 1.010 1.005 - 1.025 [facility] URINE MICROSCOPIC INDICATED NO [facility] UROBILINOGEN URINE 0.2 EU/dL 0.2 - 1.0 EU/dL [facility] So 12-19-2023 CNPN Telephone (MARK) YAMILKA VASQUEZ ([id number]) 1970 F Date Time Provider Department 12/19/23 NURSE [facility] [place] During your visit today, we recorded the following information about you: She Healy 12/19/2023 8:24 AM Signed Called patient to get her rescheduled from her infusion that she had missed after her . She told me that she is going to have to switch doctors and that she is going to work on that this week and that she didn't want to schedule her infusion now. Told the patient to call if she changes her mind. Allergies As of Date: 12/19/2023 (No Known Allergies) Date Reviewed: 07/12/2023 Reviewed by: Paris Toledo DO - Fully Assessed Prescriptions as of 12/19/2023 - albuterol HFA (PROVENTIL HFA, VENTOLIN HFA) 90 mcg/actuation inhaler INHALE 2 PUFFS BY MOUTH EVERY 6 HOURS NEEDED FOR WHEEZING FOR SHORTNESS OF BREATH - FLUoxetine (PROZAC) 20 mg capsule Daily - ocrelizumab (OCREVUS) 30 mg/mL soln injection 10 mL. - Cholecalciferol, Vitamin D3, (VITAMIN D) 25 mcg (1,000 unit) cap Take 1,000 Units by mouth once daily. - cyanocobalamin (VITAMIN B-12) 1,000 mcg tab Take 1,000 mcg by mouth once daily. - ocrelizumab (OCREVUS INTRAVENOUS) Inject 600 mg intravenously once every 6 months. - amitriptyline (ELAVIL) 50 mg tablet Take 25-50 mg qhs - multivitamin tablet Take 1 tablet by mouth once daily. Problem List As Of Date 12/19/2023 Noted Resolved Adjustment disorder with mixed anxiety and depr*10/02/2012 Multiple sclerosis [G35] 10/02/2012 Research exam [Z00.6] 11/27/2012 Encounter Status:Closed by TEAGAN ROSESHE on 12/19/23 [facility] MR SHOULDER LEFT WO IV CONTR Maikel 11-05-2023 MR SHOULDER LEFT WO IV CONTRAST EXAM: MR SHOULDER LEFT WO IV CONTRAST HISTORY: Shoulder pain TECHNIQUE: Multiplanar multisequence MRI of the shoulder was performed Without contrast. COMPARISON: Shoulder radiographs October 07, 2023 FINDINGS: Mild degenerative changes of the acromioclavicular joint with small undersurface osteophyte formation. The acromion is curved. Coracoclavicular ligament intact. Trace subacromial/subdeltoi d bursal fluid. Mild supraspinatus, infraspinatus, and subscapularis tendinosis. No definitive rotator cuff tear identified given motion artifact. No atrophy or fatty infiltration of the rotator cuff musculature. Attenuation and abnormal signal of the long head biceps tendon concerning for high-grade partial tearing. The biceps tendon resides within the bicipital groove. No large displaced labral tear identified. Partial-thickness cartilage loss of the medial humeral head and glenoid without well-defined or measurable cartilage defect. No glenohumeral joint effusion . IMPRESSION: Mild supraspinatus, infraspinatus, and subscapularis tendinosis. Findings concerning for high-grade partial tearing of the long head biceps tendon. Mild glenohumeral osteoarthritis. ELECTRONICALLY SIGNED BY: Pavel Mays, DO Normal Not Available Comment on above: Order Comment: BB in left knee Previous MRI 7-8 years ago So 08-21-2023 [facility]UBINAN Telephone ([facility]) YAMILKA VASQUEZ ([id number]) 1970 F Date Time Provider Department 08/21/23 JESSICA CLARKE During your visit today, we recorded the following information about you: Deonterohan Renuka Hernández 08/21/2023 4:19 PM Signed [place] Call Name of caller : Yamilka Vasquez Relationship to patient: Self Return call phone number : [phone] Reason for call : Other : Brief description of concern : Patient is calling and very upset because she needs to see a Spine Surgeon and she was set up twice with Spine Pain Mgt and already been through Pain Mgt and she said she is in a lot of pain and needs to see a Spine Surgeon. Can you help get her scheduled with the correct area. I did tell her [facility] Please call to discuss further. Allergies As of Date: 08/21/2023 (No Known Allergies) Date Reviewed: 07/12/2023 Reviewed by: Paris Toledo DO - Fully Assessed Reason for Visit: Patient Question [1477] Primary Visit Diagnosis:Cervical stenosis of spine [M48.02] Order(s):CONSULT TO SPINE SURGERY [[id number]] Order #: [id number]: 1 FUTURE Prescriptions as of 08/22/2023 - albuterol HFA (PROVENTIL HFA, VENTOLIN HFA) 90 mcg/actuation inhaler INHALE 2 PUFFS BY MOUTH EVERY 6 HOURS NEEDED FOR WHEEZING FOR SHORTNESS OF BREATH - FLUoxetine (PROZAC) 20 mg capsule Daily - meloxicam (MOBIC) 15 mg tablet Take 15 mg by mouth every morning. - ocrelizumab (OCREVUS) 30 mg/mL soln injection 10 mL. - Cholecalciferol, Vitamin D3, (VITAMIN D) 25 mcg (1,000 unit) cap Take 1,000 Units by mouth once daily. - cyanocobalamin (VITAMIN B-12) 1,000 mcg tab Take 1,000 mcg by mouth once daily. - ocrelizumab (OCREVUS INTRAVENOUS) Inject 600 mg intravenously once every 6 months. - amitriptyline (ELAVIL) 50 mg tablet Take 25-50 mg qhs - multivitamin tablet Take 1 tablet by mouth once daily. Problem List As Of Date 08/21/2023 Noted Resolved Adjustment disorder with mixed anxiety and depr*10/02/2012 Multiple sclerosis [G35] 10/02/2012 Research exam [Z00.6] 11/27/2012 Encounter Status:Closed by ELIZABETH VICTORIA on 08/22/23 [facility] So 07-15-2023 CNPN Telephone ([facility]) YAMILKA VASQUEZ ([id number]) 1970 F Date Time Provider Department 07/15/23 JESSICA CLARKE During your visit today, we recorded the following information about you: Anjelica Alba 07/15/2023 3:20 PM Signed [place] Call Name of caller : Steffanie Relationship to patient: Caregiver Return call phone number : appointments Reason for call : Order for MRI needed for Brain and Cervical Jessica Clarke PA-C 07/16/2023 1:10 PM Signed She only needs brain MRI since c-spine MRI was completed locally outside [facility] in April. Orders already placed Elizabeth Victoria RN 07/16/2023 2:21 PM Signed Called patient, no answer. Message left to return call to office when able. MOE Spencer Megan A, RN 07/17/2023 9:04 AM Signed Called patient, no answer. Message left indicating [employer] message would be sent with reason for call and phone number to return call to office for any additional questions. Elizabeth Victoria RN Allergies As of Date: 07/15/2023 (No Known Allergies) Date Reviewed: 07/12/2023 Reviewed by: Paris Toledo DO - Fully Assessed Reason for Visit: Orders [681] Cmt: Order for MRI needed for Brain and Cervical Primary Visit Diagnosis:Multiple sclerosis (HCC) [G35] Order(s):MRI BRAIN WO/W IVCON [[id number]] Order #: [id number] FUTURE iv contrast (will be provided with radiology test)MRI Brain Inject, intravenously, once for 1 dose.No IV access, insert saline lock prior to beginning of sedation, infusion, injection of imaging exam.Discontinue saline lock post exam. If Pt. has a central line or IVAD, may access for administration according to line specific nursing protocol.Once exam is complete flush line and de-access according to line specific nursing protocol in the MR contrast administration guidelines linkDisp: 1 EachRfl: 0 Prescriptions as of 07/17/2023 - iv contrast (will be provided with radiology test) MRI Brain Inject, intravenously, once for 1 dose.No IV access, insert saline lock prior to beginning of sedation, infusion, injection of imaging exam.Discontinue saline lock post exam. If Pt. has a central line or IVAD, may access for administration according to line specific nursing protocol.Once exam is complete flush line and de-access according to line specific nursing protocol in the MR contrast administration guidelines link - albuterol HFA (PROVENTIL HFA, VENTOLIN HFA) 90 mcg/actuation inhaler INHALE 2 PUFFS BY MOUTH EVERY 6 HOURS NEEDED FOR WHEEZING FOR SHORTNESS OF BREATH - FLUoxetine (PROZAC) 20 mg capsule Daily - meloxicam (MOBIC) 15 mg tablet Take 15 mg by mouth every morning. - ocrelizumab (OCREVUS) 30 mg/mL soln injection 10 mL. - Cholecalciferol, Vitamin D3, (VITAMIN D) 25 mcg (1,000 unit) cap Take 1,000 Units by mouth once daily. - cyanocobalamin (VITAMIN B-12) 1,000 mcg tab Take 1,000 mcg by mouth once daily. - ocrelizumab (OCREVUS INTRAVENOUS) Inject 600 mg intravenously once every 6 months. - amitriptyline (ELAVIL) 50 mg tablet Take 25-50 mg qhs - multivitamin tablet Take 1 tablet by mouth once daily. Problem List As Of Date 07/15/2023 Noted Resolved Adjustment disorder with mixed anxiety and depr*10/02/2012 Multiple sclerosis [G35] 10/02/2012 Research exam [Z00.6] 11/27/2012 Prescriptions ordered this encounter Disp Refills Start End IV CONTRAST (RADIOLOGY PROCEDURE) 1 Ea* 0 07/16/2023 07/17/2023 Class: In Office Sig: MRI Brain Inject, intravenously, once for 1 dose.No IV access, insert saline lock prior to beginning of sedation, infusion, injection of imaging exam.Discontinue saline lock post exam. If Pt. has a central line or IVAD, may access for administration according to line specific nursing protocol.Once exam is complete flush line and de-access according to line specific nursing protocol in the MR contrast administration guidelines link Encounter Status:Closed by ELIZABETH VICTORIA on 07/17/23 [facility] CNOVon 07-10-2023 CNOV Office Visit (PAINLN ) YAMILKA VASQUEZ ([id number]) 1970 F Date Time Provider Department 07/10/23 6:00 PM PARIS TOLEDO PAINLN During your visit today, we recorded the following information about you: Pulse Weight Height 89/minute 134.3 kg 1.676 m Paris Toledo, DO 07/12/2023 11:26 AM Signed [facility] Initial Evaluation July 10, 2023 This appointment was requested by Jessica Clarke PA-C, for my medical opinion regarding the evaluation and management of the patient's Yamilka Vasquez problems, and my final recommendations will be communicated to the requesting health care provider by way of the shared medical record for internal providers or letter via the [employer] for external providers. SUBJECTIVE: Yamilka Ayleen Vasquez a 53 year old presents to [facility] Pain Management Department, accompanied by self only, was referred by Jessica Clarke PA-C, for an initial evaluation for neck. The pain is located in the neck and radiates to bilateral lower extremities along anterior aspect to the level of fingers more so the right Distribution: left sided neck and shoulder and arms are greater pain Started several years ago, was not directly related to injury/trauma, and symptoms have been worsening. Characterized as aching Currently the pain is a rated at a 10 on the right side and a 7 on the left side Worst pain score is rated at 10 on a scale of 0-10. Best pain score is rated at 7 on a scale of 0-10. Aggravated by ADL's. Mitigated by Ice . Current treatments and response: Medical marijuana little relief ( sleep) Mobic (-) relief Ice (+) relief Response to previous treatments: Several injections several years ago temporary relief (MS) PT several years ago (+) relief Chris [place] Alcohol Abuse - No Drug Abuse - No Current Anticoagulant Therapy: No Sleep Disturbance: Yes: Difficulty falling asleep. and Difficulty staying asleep. PAST MEDICAL HISTORY Diagnosis Date Depressive disorder, not elsewhere classified Hypertension MS (multiple sclerosis) (HCC) Pain in joint, multiple sites Unspecified sleep apnea PAST SURGICAL HISTORY Procedure Laterality Date CARPAL TUNNEL bilateral LAPS TX ECTOPIC PREG W/O SALPINGAND/OOPHORECTO MY Social History Tobacco Use Smoking status: Former Packs/day: 1.00 Years: 20.00 Additional pack years: 0.00 Total pack years: 20.00 Types: Cigarettes Quit date: 12/13/2016 Years since quittin.5 Smokeless tobacco: Never Tobacco comments: plans to try to quit at some point but not ready. Substance Use Topics Alcohol use: Yes Comment: rare Drug use: No FAMILY HISTORY Problem Relation Age of Onset Stroke Mother Hypertension Mother Thyroid Mother Arthritis Mother rheumatoid. Cataract Mother Heart Father Cancer Father colon? Thyroid Maternal Grandmother Cataract Sister Diabetes Sister None Other no ms Diabetes Brother Diabetes Brother Diabetes Sister other (heavy smoker) Sister Alcohol abuse Brother heavy smoker Alcohol abuse Brother Cancer Brother unsure what kind Accidental Brother other (lung disease) Brother heavy smoker No Known Problems Daughter No Known Problems Son ALLERGIES No Known Allergies Current Outpatient Medications Medication Sig albuterol HFA (PROVENTIL HFA, VENTOLIN HFA) 90 mcg/actuation inhaler INHALE 2 PUFFS BY MOUTH EVERY 6 HOURS NEEDED FOR WHEEZING FOR SHORTNESS OF BREATH FLUoxetine (PROZAC) 20 mg capsule Daily meloxicam (MOBIC) 15 mg tablet Take 15 mg by mouth every morning. ocrelizumab (OCREVUS) 30 mg/mL soln injection 10 mL. Cholecalciferol, Vitamin D3, (VITAMIN D) 25 mcg (1,000 unit) cap Take 1,000 Units by mouth once daily. cyanocobalamin (VITAMIN B-12) 1,000 mcg tab Take 1,000 mcg by mouth once daily. multivitamin tablet Take 1 tablet by mouth once daily. ocrelizumab (OCREVUS INTRAVENOUS) Inject 600 mg intravenously once every 6 months. amitriptyline (ELAVIL) 50 mg tablet Take 25-50 mg qhs (Patient taking differently: 10 mg two times a day. Take 25-50 mg qhs) No current facility-administered medications for this visit. Review of Symptoms: GENERAL:No weight loss, malaise or fevers., SEE HPI HEENT:Negative for frequent or significant headaches, No changes in hearing or vision, no nose bleeds or other nasal problems NECK:Cervical RESPIRATORY: Negative for cough, wheezing or shortness of breath. CARDIOVASCULAR: Negative for chest pain, leg swelling and palpitations GASTROINTESTINAL: Negative for abdominal discomfort, blood in stools or black stools or change in bowel habits GENITOURINARY: No history of dysuria, frequency or incontinence CLINICAL RESEARCH ANALYST: Negative for abnormal vaginal bleeding, abnormal vaginal discharge MUSCULOSKELETAL: Negative for joint pain or swelling, back pain or musc (more content not included)... [facility] CBC W Auto Differential pane l (Bld)on 05-22-2023 Basophils (Bld) [#/Vol] 0.05 10*3/uL Normal <0.11 [facility] Comment on above: Order Comment: Speci men Type: BLOOD SPECIMENOrdering Facility: [facility] Address: [address] [place] [address] Performed By: #### 5 7021-8 ####[facility] LABCLIA [id number] [place] [address] [place] Basophils/100 WBC (Bld) 0.5 % Normal [facility] Comment on above: Order Comment: Speci men Type: BLOOD SPECIMENOrdering Facility: [facility] Address: [address] [place] [address] Performed By: #### 5 7021-8 ####[facility] LABCLIA [id number] [place] [address] [place] Differential cell count method Nom (Bld) Auto Normal [facility] Comment on above: Order Comment: Speci men Type: BLOOD SPECIMENOrdering Facility: [facility] Address: [address] [place] [address] Performed By: #### 5 7021-8 ####[facility] LABCLIA [id number] [place] [address] [place] Eosinophils (Bld) [#/Vol] 0.19 10*3/uL Normal <0.46 [facility] Comment on above: Order Comment: Speci men Type: BLOOD SPECIMENOrdering Facility: [facility] Address: [address] [place] [address] Performed By: #### 5 7021-8 ####[facility] LABCLIA [id number] [place] [address] [place] Eosinophils/100 WBC (Bld) 2.1 % Normal [facility] Comment on above: Order Comment: Speci men Type: BLOOD SPECIMENOrdering Facility: [facility] Address: [address] [place] [address] Performed By: #### 5 7021-8 ####[facility] LABCLIA [id number] [place] [address] [place] Erythrocyte distribution width (RBC) [Ratio] 15.5 % High 11.5-15.0 [facility] Comment on above: Order Comment: Speci men Type: BLOOD SPECIMENOrdering Facility: [facility] Address: [address] [place] [address] Performed By: #### 5 7021-8 ####[facility] LABCLIA [id number] [place] [address] [place] Hematocrit (Bld) [Volume fraction] 42.1 % Normal 36.0-46.0 [facility] Comment on above: Order Comment: Speci men Type: BLOOD SPECIMENOrdering Facility: [facility] Address: [address] [place] [address] Performed By: #### 5 7021-8 ####[facility] LABCLIA [id number] [place] [address] [place] Hemoglobin (Bld) [Mass/Vol] 12.9 g/dL Normal 11.5-15.5 [facility] Comment on above: Order Comment: Speci men Type: BLOOD SPECIMENOrdering Facility: [facility] Address: [address] [place] [address] Performed By: #### 5 7021-8 ####[facility] LABIA [id number] [place] [address] [place] Immature granulocytes (Bld) [#/Vol] 0.04 10*3/uL Normal <0.10 [facility] Comment on above: Order Comment: Speci men Type: BLOOD SPECIMENOrdering Facility: [facility] Address: [address] [place] [address] Performed By: #### 5 7021-8 ####[facility] LABCLIA [id number] [place] [address] [place] Immature granulocytes/100 WBC (Bld) 0.4 % Normal [facility] Comment on above: Order Comment: Speci men Type: BLOOD SPECIMENOrdering Facility: [facility] Address: [address] [place] [address] Performed By: #### 5 7021-8 ####[facility] LABIA [id number] [place] [address] [place] Lymphocytes (Bld) [#/Vol] 0.82 10*3/uL Low 1.00-4.00 [facility] Comment on above: Order Comment: Speci men Type: BLOOD SPECIMENOrdering Facility: [facility] Address: [address] [place] [address] Performed By: #### 5 7021-8 ####[facility] LABCLIA [id number] [place] [address] [place] Lymphocytes/100 WBC (Bld) 9.0 % Normal [facility] Comment on above: Order Comment: Speci men Type: BLOOD SPECIMENOrdering Facility: [facility] Address: [address] [place] [address] Performed By: #### 5 7021-8 ####[facility] [id number] [place] [address] [place] MCH (RBC) [Entitic mass] 26.9 pg Normal 26.0-34.0 [facility] Comment on above: Order Comment: Speci men Type: BLOOD SPECIMENOrdering Facility: [facility] Address: [address] [place] [address] Performed By: #### 5 7021-8 ####[facility] [id number] [place] [address] [place] MCHC (RBC) [Mass/Vol] 30.6 g/dL Normal 30.5-36.0 [facility] Comment on above: Order Comment: Speci men Type: BLOOD SPECIMENOrdering Facility: [facility] Address: [address] [place] [address] Performed By: #### 5 7021-8 ####[facility] [id number] [place] [address] [place] MCV (RBC) [Entitic vol] 87.9 fL Normal 80.0-100.0 [facility] Comment on above: Order Comment: Speci men Type: BLOOD SPECIMENOrdering Facility: [facility] Address: [address] [place] [address] Performed By: #### 5 7021-8 ####[facility] [id number] [place] [address] [place] Monocytes (Bld) [#/Vol] 0.93 10*3/uL High <0.87 [facility] Comment on above: Order Comment: Speci men Type: BLOOD SPECIMENOrdering Facility: [facility] Address: [address] [place] [address] Performed By: #### 5 7021-8 ####[facility] LABCLIA [id number] [place] [address] [place] Monocytes/100 WBC (Bld) 10.2 % Normal [facility] Comment on above: Order Comment: Speci men Type: BLOOD SPECIMENOrdering Facility: [facility] Address: [address] [place] [address] Performed By: #### 5 7021-8 ####[facility] LABCLIA [id number] [place] [address] [place] Neutrophils (Bld) [#/Vol] 7.07 10*3/uL Normal 1.45-7.50 [facility] Comment on above: Order Comment: Speci men Type: BLOOD SPECIMENOrdering Facility: [facility] Address: [address] [place] [address] Performed By: #### 5 7021-8 ####[facility] LABCLIA [id number] [place] [address] [place] Neutrophils/100 WBC (Bld) 77.8 % Normal [facility] Comment on above: Order Comment: Speci men Type: BLOOD SPECIMENOrdering Facility: [facility] Address: [address] [place] [address] Performed By: #### 5 7021-8 ####[facility] LABCLIA [id number] [place] [address] [place] Nucleated RBC (Bld) [#/Vol] 10*3/uL Normal <0.01 [facility] Comment on above: Order Comment: Speci men Type: BLOOD SPECIMENOrdering Facility: [facility] Address: [address] [place] [address] Performed By: #### 5 7021-8 ####[facility] LABCLIA [id number] [place] [address] [place] Nucleated RBC/100 WBC (Bld) [Ratio] 0.0 /100 WBC Normal [facility] Comment on above: Order Comment: Speci men Type: BLOOD SPECIMENOrdering Facility: [facility] Address: [address] [place] [address] Performed By: #### 5 7021-8 ####[facility] LABCLIA [id number] [place] [address] [place] Platelet mean volume (Bld) [Entitic vol] 12.4 fL Normal 9.0-12.7 [facility] Comment on above: Order Comment: Speci men Type: BLOOD SPECIMENOrdering Facility: [facility] Address: [address] [place] [address] Performed By: #### 5 7021-8 ####[facility] LABIA [id number] [place] [address] [place] Platelets (Bld) [#/Vol] 208 10*3/uL Normal 150-400 [facility] Comment on above: Order Comment: Speci men Type: BLOOD SPECIMENOrdering Facility: [facility] Address: [address] [place] [address] Performed By: #### 5 7021-8 ####[facility] LABIA [id number] [place] [address] [place] RBC (Bld) [#/Vol] 4.79 10*6/uL Normal 3.90-5.20 [facility] Comment on above: Order Comment: Speci men Type: BLOOD SPECIMENOrdering Facility: [facility] Address: [address] [place] [address] Performed By: #### 5 7021-8 ####[facility] LABCLIA [id number] [place] [address] [place] WBC (Bld) [#/Vol] 9.10 10*3/uL Normal 3.70-11.00 [facility] [facility] Comment on above: Order Comment: Speci men Type: BLOOD SPECIMENOrdering Facility: [facility] Address: [address] [place] [address] Performed By: #### 5 7021-8 ####[facility] LABCLIA [id number] [address] [place] CD19 ABSOLUTE COUNTon 2023 CD3-CD19+ cells (Bld) [#/Vol] 219 cells/uL Normal 75-660 [facility] Comment on above: Order Comment: Speci men Type: BLOOD SPECIMENOrdering Facility: [facility] Address: [address] [place] [address] Performed By: #### A BS19 ####[facility] LABIA [id number] [address] [place] CD3-CD19+ cells/100 cells (Bld) 23 % High 5-22 [facility] Comment on above: Order Comment: Speci men Type: BLOOD SPECIMENOrdering Facility: [facility] Address: [address] [place] [address] Performed By: #### A BS19 ####[facility] LABIA [id number] [address] [place] Lymphocytes/100 WBC FC (Bld) Normal [facility] Comment on above: Order Comment: Speci men Type: BLOOD SPECIMENOrdering Facility: [facility] Address: [address] [place] [address] Performed By: #### A BS19 ####[facility] LABIA [id number] [address] [place] CNOVon 05-22-2023 CNOV Office Visit (NTLORA ) YAMILKA VASQUEZ ([id number]) 1970 F Date Time Provider Department 1/3/24 8:00 AM INFUSION CA CHAIR 2 NTLORA During your visit today, we recorded the following information about you: Temperature Pulse Respiration Blood pressure 97 degrees 86/minute 18/minute 140/74 Weight 131 kg She Brand RN 05/22/2023 11:49 AM Signed Since your last infusion, have you: Had any major change in your health (including new diagnosis of cancer, COPD or cogestive heart failure? No Been hospitalized? No Had any infections? No Taking antibiotics/antiviral s/antifungals for current infection? No Had surgery or do you have upcoming surgery? No Received any live vaccines in the last four weeks? No Worsening GI symptoms/abnormal pain/bloating No In the past 7 days have you had: Fevers/chills/night sweats? No New cough or cold symptoms or sore throat? No Nausea/vomiting/diarr hea? No Unusual swelling of your ankles of feet? No Burning/blood with urination or urinary frequency? No New weakness/numbness/cindi mbling falls? No New rash or open sores? No No chance of ; pt states she had her tubes tied. Referring Provider: SARTHAK ESCOBAR [[id number]] Allergies As of Date: 05/22/2023 (No Known Allergies) Date Reviewed: 10/11/2022 Reviewed by: Maryam Cabrera, MOE - Fully Assessed Primary Visit Diagnosis:Multiple sclerosis (HCC) [G35] Other Visit Diagnosis:Multiple sclerosis, relapsing-remitting (HCC) [G35] Order(s):TREATMENT PARAMETER-NOT NEEDED [[id number]] Order #: [id number]: 1 BCN CD20 NURSING COMMUNICATION [[id number]] Order #: [id number]: 1 BCN NURSING COMMUNICATION [[id number]] Order #: [id number]: 1 CD19 ABSOLUTE COUNT [SQABS19] Order #: [id number] FUTURE [] methylPREDNISolone sod succinate(PF) 100 mg injection (SOLU-Medrol)Disp: Rfl: [] acetaminophen 1,000 mg tab(s) (TYLENOL)Disp: Rfl: [] diphenhydrAMINE 50 mg (BENADRYL)Disp: Rfl: [] ocrelizumab 600 mg in NaCl 0.9% 500 mL (OCREVUS)Disp: Rfl: CBC + DIFF [SQCBCDIF] Order #: [id number]. #:[id number] COMP METABOLIC PANEL [SQCMP] Order #: [id number]. #:[id number] IGG [SQIGG] Order #: [id number]. #:[id number] IGM [SQIGM] Order #: [id number]. #:[id number] CD19 ABSOLUTE COUNT [SQABS19] Order #: [id number]. #:[id number] Prescriptions as of 05/23/2023 - lisinopril (ZESTRIL) 10 mg tablet Take 1 tablet by mouth once daily - atorvastatin (LIPITOR) 40 mg tablet Take 1 tablet by mouth once daily - oxybutynin XL (DITROPAN XL) 5 mg 24 hr tablet - DULoxetine (CYMBALTA) 30 mg capsule Take 30 mg by mouth once daily. - ocrelizumab (OCREVUS INTRAVENOUS) Inject 600 mg intravenously once every 6 months. - amitriptyline (ELAVIL) 50 mg tablet Take 25-50 mg qhs - multivitamin tablet Take 1 tablet by mouth once daily. Problem List As Of Date 05/22/2023 Noted Resolved Adjustment disorder with mixed anxiety and depr*10/02/2012 Multiple sclerosis [G35] 10/02/2012 Research exam [Z00.6] 11/27/2012 Prescriptions ordered this encounter Disp Refills Start End METHYLPREDNISOLONE SOD SUCC (PF) 125* 05/22/2023 05/22/2023 Route: INTRAVENOUS ACETAMINOPHEN 500 MG TABLET 05/22/2023 05/22/2023 Route: ORAL DIPHENHYDRAMINE 25 MG CAPSULE 05/22/2023 05/22/2023 Route: ORAL OCRELIZUMAB IVPB 600 MG IN NS 500 ML 05/22/2023 05/22/2023 Route: INTRAVENOUS SODIUM CHLORIDE 0.9 % INTRAVENOUS SO* 05/22/2023 05/22/2023 Cmt: Inform physician Route: INTRAVENOUS Disc: Auto DC at discharge. DIPHENHYDRAMINE 50 MG/ML INJECTION S* 05/22/2023 05/22/2023 Route: INTRAVENOUS Disc: Auto DC at discharge. HYDROCORTISONE SOD SUCCINATE (PF) 10* 05/22/2023 05/22/2023 Route: INTRAVENOUS Disc: Auto DC at discharge. EPINEPHRINE HCL (PF) 1 MG/ML (1 ML) * 05/22/2023 05/22/2023 Route: INTRAMUSCULA Disc: Auto DC at discharge. SODIUM CHLORIDE 0.9 % (FLUSH) INJECT* 05/22/2023 05/22/2023 Route: INTRAVENOUS Disc: Auto DC at discharge. HEPARIN LOCK FLUSH (PORCINE) 100 UNI* 05/22/2023 05/22/2023 Route: INTRAVENOUS Disc: Auto DC at discharge. SODIUM CHLORIDE 0.9 % (FLUSH) INJECT* 05/22/2023 05/22/2023 Route: INTRAVENOUS Disc: Auto DC at discharge. Medications Discontinued During This Encounter Prescriptions - sodium chloride 0.9 % (flush) 10-20 mL (BD POSIFLUSH) (Discontinued) - heparin 100 unit/mL 500 Units injection (Discontinued) - sodium chloride 0.9 % (flush) 10-20 mL (BD POSIFLUSH) (Discontinued) - EPINEPHrine HCl (PF) 1 mg/mL (1 mL) 0.3 mg injection (Discontinued) - hydrocortisone sodium succinate (PF) 100 mg injection (Solu-CORTEF) (Discontinued) - diphenhydrAMINE 50 mg injection (BENADRYL) (Discontinued) - NaCl 0.9% iv infusion (Discontinued) Encounter Status:Closed by SHE BRAND on 05/22/23 Normal [facility] Comprehensive metabolic 2000 panelon 05-22-2023 Albumin [Mass/Vol] 4.0 g/dL Normal 3.9-4.9 [facility] Comment on above: Order Comment: Speci men Type: BLOOD SPECIMENOrdering Facility: [facility] Address: [address] [place] [address] Performed By: #### 2 4323-8 ####[facility] LABCLIA [id number] [place] [address] [place] ALP [Catalytic activity/Vol] 90 U/L Normal 34-123 [facility] Comment on above: Order Comment: Speci men Type: BLOOD SPECIMENOrdering Facility: [facility] Address: [address] [place] [address] Performed By: #### 2 4323-8 ####[facility] LABCLIA [id number] [place] [address] [place] ALT [Catalytic activity/Vol] 23 U/L Normal 7-38 [facility] Comment on above: Order Comment: Speci men Type: BLOOD SPECIMENOrdering Facility: [facility] Address: [address] [place] [address] Performed By: #### 2 4323-8 ####[facility] LABCLIA [id number] [place] [address] [place] Anion gap [Moles/Vol] 13 mmol/L Normal 9-18 [facility] Comment on above: Order Comment: Speci men Type: BLOOD SPECIMENOrdering Facility: [facility] Address: [address] [place] [address] Performed By: #### 2 4323-8 ####[facility] LABCLIA [id number] [place] [address] [place] AST [Catalytic activity/Vol] 25 U/L Normal 13-35 [facility] Comment on above: Order Comment: Speci men Type: BLOOD SPECIMENOrdering Facility: [facility] Address: [address] [place] [address] Performed By: #### 2 4323-8 ####[facility] LABCLIA [id number] [place] [address] [place] Bilirubin [Mass/Vol] 0.3 mg/dL Normal 0.2-1.3 [facility] Comment on above: Order Comment: Speci men Type: BLOOD SPECIMENOrdering Facility: [facility] Address: [address] [place] [address] Performed By: #### 2 4323-8 ####[facility] LABCLIA [id number] [place] [address] [place] Calcium [Mass/Vol] 9.4 mg/dL Normal 8.5-10.2 [facility] Comment on above: Order Comment: Speci men Type: BLOOD SPECIMENOrdering Facility: [facility] Address: [address] [place] [address] Performed By: #### 2 4323-8 ####[facility] LABCLIA [id number] [place] [address] [place] Chloride [Moles/Vol] 103 mmol/L Normal 97-105 [facility] [place] Comment on above: Order Comment: Speci men Type: BLOOD SPECIMENOrdering Facility: [facility] Address: [address] [place] [address] Performed By: #### 2 4323-8 ####[facility] LABCLIA [id number] [place] [address] [place] CO2 [Moles/Vol] 27 mmol/L Normal 22-30 [facility] Comment on above: Order Comment: Speci men Type: BLOOD SPECIMENOrdering Facility: [facility] Address: [address] [place] [address] Performed By: #### 2 4323-8 ####[facility] LABCLIA [id number] [place] [address] [place] Creatinine [Mass/Vol] 1.04 mg/dL High 0.58-0.96 [facility] Comment on above: Order Comment: Speci men Type: BLOOD SPECIMENOrdering Facility: [facility] Address: [address] [place] [address] Performed By: #### 2 4323-8 ####[facility] LABCLIA [id number] [place] [address] [place] Creatinine and Glomerular filtration rate.predicted panel (S/P/Bld) 64 mL/min/1.73m??? Normal >=60 [facility] Comment on above: Order Comment: Speci men Type: BLOOD SPECIMENOrdering Facility: [facility] Address: [address] [place] [address] Result Comment: Karyn mated Glomerular Filtration Rate (eGFR) is calculated using the 2020 CKD-EPI creatinine equation. This equation utilizes serum creatinine, sex, and age as parameters. The creatinine assay has traceable calibration to isotope dilution-mass spectrometry. Refer to KDIGO guidelines for clinical interpretation. In patients with unstable renal function, e.g. those with acute kidney injury, the eGFR may not accurately reflect actual GFR. Performed By: #### 2 4323-8 ####[facility] LABCLIA [id number] [place] [address] [place] Glucose [Mass/Vol] 88 mg/dL Normal 74-99 [facility] Comment on above: Order Comment: Rebeca ruelas Type: BLOOD SPECIMENOrdering Facility: [facility] Address: [address] [place] [address] Result Comment: The [place] Diabetes [employer] (ADA) provides guidance for cutoff values for fasting glucose and random glucose. The ADA defines fasting as no caloric intake for at least 8 hours. Fasting plasma glucose results between 100 to 125 mg/dL indicate increased risk for diabetes (prediabetes). Fasting plasma glucose results greater than or equal to 126 mg/dL meet the criteria for diagnosis of diabetes. In the absence of unequivocal hyperglycemia, results should be confirmed by repeat testing. In a patient with classic symptoms of hyperglycemia or hyperglycemic crisis, random plasma glucose results greater than or equal to 200 mg/dL meet the criteria for diagnosis of diabetes. Reference: Standards of Medical Care in Diabetes 2016, [place] [employer]. Diabetes Care. 2016.39(Suppl 1). Performed By: #### 2 4323-8 ####[facility] LABCLIA [id number] [place] [id number] [place] Potassium [Moles/Vol] 3.7 mmol/L Normal 3.7-5.1 [facility] Comment on above: Order Comment: Rebeca ruelas Type: BLOOD SPECIMENOrdering Facility: [facility] Address: [address] [place] [address] Performed By: #### 2 4323-8 ####[facility] LABCLIA [id number] [place] [id number] [place] Protein [Mass/Vol] 7.1 g/dL Normal 6.3-8.0 [facility] Comment on above: Order Comment: Speci men Type: BLOOD SPECIMENOrdering Facility: [facility] Address: [address] [place] [address] Performed By: #### 2 4323-8 ####[facility] LABCLIA [id number] [place] [address] [place] Sodium [Moles/Vol] 143 mmol/L Normal 136-144 [facility] Comment on above: Order Comment: Speci men Type: BLOOD SPECIMENOrdering Facility: [facility] Address: [address] [place] [address] Performed By: #### 2 4323-8 ####[facility] LABCLIA [id number] [place] [address] [place] Urea nitrogen [Mass/Vol] 17 mg/dL Normal 7-21 [facility] Comment on above: Order Comment: Speci men Type: BLOOD SPECIMENOrdering Facility: [facility] Address: [address] [place] [address] Performed By: #### 2 4323-8 ####[facility] LABCLIA [id number] [place] [address] [place] IgG SerPl-mCncon 05-22-2023 IgG [Mass/Vol] 954 mg/dL Normal 700-1600 [facility] Comment on above: Order Comment: Speci men Type: BLOOD SPECIMENOrdering Facility: [facility] Address: [address] [place] [address] Performed By: #### 2 465-3, 2472-9 ####[facility] LABCLIA [id number] [place] [address] [place] IgM SerPl-mCncon 05-22-2023 IgM [Mass/Vol] 74 mg/dL Normal 40-230 [facility] Comment on above: Order Comment: Speci men Type: BLOOD SPECIMENOrdering Facility: [facility] Address: [address] [facility] [address] Performed By: #### 2 465-3, 2472-9 ####[facility] LABCLIA [id number] [place]ICA [id number] [address] [place] So 05-14-2023 CNPN Telephone (NIQ) YAMILKA VASQUEZ ([id number]) 1970 F Date Time Provider Department 05/14/23 JESSICA CLARKE During your visit today, we recorded the following information about you: Michelle Haines 05/14/2023 1:05 PM Signed Left the patient a message to verify if the patient was expecting any insurance changes in the new year. If patient returns call, please let infusion team know of outcome. Allergies As of Date: 05/14/2023 (No Known Allergies) Date Reviewed: 10/11/2022 Reviewed by: Maryam Cabrera, RN - Fully Assessed Reason for Visit: Appointment [186] Cmt: Left the patient a message to verify if the patient was expecting any insurance changes in the new year. If patient returns call, please let infusion team know of outcome. Prescriptions as of 05/14/2023 - lisinopril (ZESTRIL) 10 mg tablet Take 1 tablet by mouth once daily - atorvastatin (LIPITOR) 40 mg tablet Take 1 tablet by mouth once daily - oxybutynin XL (DITROPAN XL) 5 mg 24 hr tablet - DULoxetine (CYMBALTA) 30 mg capsule Take 30 mg by mouth once daily. - ocrelizumab (OCREVUS INTRAVENOUS) Inject 600 mg intravenously once every 6 months. - amitriptyline (ELAVIL) 50 mg tablet Take 25-50 mg qhs - multivitamin tablet Take 1 tablet by mouth once daily. Problem List As Of Date 05/14/2023 Noted Resolved Adjustment disorder with mixed anxiety and depr*10/02/2012 Multiple sclerosis [G35] 10/02/2012 Research exam [Z00.6] 11/27/2012 Encounter Status:Closed by MICHELLE HAINES on 05/14/23 Normal [facility] PREG HCG QUALon 09-21-2022 , QUAL Negative Normal NEGATIVE [facility] Comment on above: Performed By: #### P REG #### [facility] [address] [place] [address] Dr. Angel Li IMMUNOGLOBULIN IGG QUANTITAT IVEon 06-06-2022 Immunoglobulin G, Qn, Serum 1032 mg/dL Normal 586-1602 [facility] Comment on above: Performed By: #### I MIGGQN #### [facility] [address] [place] [address] Dr. Angel Li IMMUNOGLOBULIN IGM QUANTITAT IVEon 06-06-2022 Immunoglobulin M, Qn, Serum 46 mg/dL Normal 26-217 [facility] Comment on above: Performed By: #### I MIGMQN #### [facility] [address] [place] [address] Dr. Angel Li CBC AUTO DIFFon 06-05-2022 BASO # 0.0 103/ul Normal 0.0-0.1 [facility] Comment on above: Performed By: #### C BC #### [facility] [address] [place] [address] Dr. Angel Li Basophils/100 WBC (Bld) 0.5 % Normal 0.2-2.0 [facility] Comment on above: Performed By: #### C BC #### [facility] [address] [place] [address] Dr. Angel Li EO # 0.2 103/ul Normal 0.0-0.7 [facility] Comment on above: Performed By: #### C BC #### [facility] [address] [place] [address] Dr. Angel Li Eosinophils/100 WBC (Bld) 2.6 % Normal 0.9-7.0 [facility] Comment on above: Performed By: #### C BC #### [facility] [address] [place] [address] [address] Angel Li Erythrocyte distribution width (RBC) [Ratio] 14.5 % Normal 11.0-15.0 [facility] Comment on above: Performed By: #### C BC #### [facility] [address] [place] [address] Dr. Angel Li Hematocrit (Bld) [Volume fraction] 36.5 % Normal 36.0-48.0 [facility] Comment on above: Performed By: #### C BC #### [facility] [address] [place] [address] Dr. Angel Li Hemoglobin (Bld) [Mass/Vol] 11.8 g/dL Critically low 12.0-16.0 [facility] Comment on above: Performed By: #### C BC #### [facility] [address] [place] [address] Dr. Angel Li IG # 0.03 10e3/ul Normal 0.00-0.03 [facility] Comment on above: Performed By: #### C BC #### [facility] [address] [place] [address] Dr. Angel Li IG % 0.4 % Normal 0.0-0.5 [facility] Comment on above: Performed By: #### C BC #### [facility] [address] [place] [address] Dr. Angel Li LYMPH # 0.8 103/ul Critically low 1.2-3.8 [facility] Comment on above: Performed By: #### C BC #### [facility] [address] [place] [address] Dr. Angel Li Lymphocytes/100 WBC (Bld) 9.8 % Critically low 20.5-60.0 [facility] Comment on above: Performed By: #### C BC #### [facility] [address] [place] [address] Dr. Angel Li MANUAL DIFF REQ NO Normal [facility] Comment on above: Performed By: #### C BC #### [facility] [address] [place] [address] [address] Angel Li MCH (RBC) [Entitic mass] 29.0 pg Normal 26.7-34.0 [facility] Comment on above: Performed By: #### C BC #### [facility] [address] [place] [address] Dr. Angel Li MCHC (RBC) [Mass/Vol] 32.3 g/dL Normal 29.9-35.2 [facility] Comment on above: Performed By: #### C BC #### [facility] [address] [place] [address] Dr. Angel Li MCV (RBC) [Entitic vol] 89.7 fL Normal 81.0-99.0 [facility] Comment on above: Performed By: #### C BC #### [facility] [address] [place] [address] Dr. Angel Li MONO # 1.0 103/ul Critically high 0.3-0.8 [facility] Comment on above: Performed By: #### C BC #### [facility] [address] [place] [address] Dr. Angel Li Monocytes/100 WBC (Bld) 13.0 % Critically high 1.7-12.0 [facility] Comment on above: Performed By: #### C BC #### [facility] [address] [place] [address] Dr. Angel Li NEUT # 5.9 103/ul Normal 1.4-6.5 [facility] Comment on above: Performed By: #### C BC #### [facility] [address] [place] [address] Dr. Angel Li Neutrophils/100 WBC (Bld) 73.7 % Normal 43.0-75.0 [facility] Comment on above: Performed By: #### C BC #### [facility] [address] [place] [address] Dr. Angel Li Platelet mean volume (Bld) [Entitic vol] 11.6 fL Normal 9.5-13.5 [facility] Comment on above: Performed By: #### C BC #### [facility] [address] [place] [address] [address] Angel Li PLT 200 103/ul Normal 150-450 [facility] Comment on above: Performed By: #### C BC #### [facility] [address] [place] [address] [address] Angel Li RBC 4.07 106/ul Critically low 4.20-5.40 [facility] Comment on above: Performed By: #### C BC #### [facility] [address] [place] [address] [address] Angel Li WBC 8.0 103/ul Normal 4.0-11.0 [facility] Comment on above: Performed By: #### C BC #### [facility] [address] [place] [address] Dr. Angel Li PROF 14(COMP METB)on 023 Albumin [Mass/Vol] 3.4 g/dL Normal 3.4-5.0 [facility] Comment on above: Performed By: #### C MP #### [facility] [address] [place] [address] Dr. Angel Li Albumin/Globulin [Mass ratio] 0.9 {ratio} Normal [facility] Comment on above: Performed By: #### C MP #### [facility] [address] [place] [address] Dr. Angel Li ALP [Catalytic activity/Vol] 122 U/L Critically high 46-116 [facility] Comment on above: Performed By: #### C MP #### [facility] [address] [place] [address] Dr. Angel Li ALT [Catalytic activity/Vol] 35 U/L Normal 14-59 [facility] Comment on above: Performed By: #### C MP #### [facility] [address] [place] [address] Dr. Angel Li Anion gap [Moles/Vol] 9.7 mmol/L Normal [facility] Comment on above: Performed By: #### C MP #### [facility] [address] [place], [place] [id number] Dr. Angel Li AST [Catalytic activity/Vol] 32 U/L Normal 15-37 [facility] Comment on above: Performed By: #### C MP #### [facility] [address] [place] [address] [address] Angel Li Bilirubin [Mass/Vol] 0.4 mg/dL Normal 0.2-1.0 [facility] Comment on above: Performed By: #### C MP #### [facility] [address] [place] [address] [address] Angel Li Calcium [Mass/Vol] 9.0 mg/dL Normal 8.5-10.1 [facility] Comment on above: Performed By: #### C MP #### [facility] [address] [place] [address] Dr. Angel Li Chloride [Moles/Vol] 103 mmol/L Normal 98-107 [facility] Comment on above: Performed By: #### C MP #### [facility] [address] [place] [address] Dr. Angel Li CO2 [Moles/Vol] 32.3 mmol/L Critically high 21.0-32.0 [facility] Comment on above: Performed By: #### C MP #### [facility] [address] [place] [address] Dr. Angel Li Creatinine [Mass/Vol] 0.97 mg/dL Normal 0.55-1.02 [facility] Comment on above: Performed By: #### C MP #### [facility] [address] [place] [address] Dr. Angel Li EGFR-AF TUVALUAN >60 Normal >=60 [facility] Comment on above: Performed By: #### C MP #### [facility] [address] [place] [address] Dr. Angel Li EGFR-NON AF TUVALUAN =60 Normal >=60 [facility] Comment on above: Performed By: #### C MP #### [facility] [address] [place] [address] Dr. Angel Li Globulin (S) [Mass/Vol] 3.7 g/dL Normal [facility] Comment on above: Performed By: #### C MP #### [facility] [address] [place] [address] [address] Angel Li Glucose [Mass/Vol] 87 mg/dL Normal 74-106 [facility] Comment on above: Performed By: #### C MP #### [facility] [address] [place] [address] [address] Angel Li Potassium [Moles/Vol] 4.0 mmol/L Normal 3.5-5.1 [facility] Comment on above: Performed By: #### C MP #### [facility] [address] [place] [address] [address] Angel Li Protein [Mass/Vol] 7.1 g/dL Normal 6.4-8.2 [facility] Comment on above: Performed By: #### C MP #### [facility] [address] [address] [address] Angel Li Sodium [Moles/Vol] 141 mmol/L Normal 136-145 [facility] Comment on above: Performed By: #### C MP #### [facility] [address] [place] [address] [address] Angel Li Urea nitrogen [Mass/Vol] 11.0 mg/dL Normal 7.0-18.0 [facility] [facility] Comment on above: Performed By: #### C MP #### [facility] [address] [address] [address] Angel Li Urea nitrogen/Creatinine [Mass ratio] 11.3 mg/mg [facility] Comment on above: Performed By: #### C MP #### [facility] [address] [address] [address] Angel Li PAP ACOG PANEL 2: 30 to 65on 03-13-2022 . . Normal [facility] Comment on above: Result Comment: Perf ormed at: WB Performed By: #### [id number] #### [facility] [address] [address] [address] Angel Li Age Gdln ACOG Testing 30-65 [facility] Comment on above: Performed By: #### [id number] #### [facility] [address] [address] [address] Angel Li DIAGNOSIS: Comment Normal [facility] Comment on above: Result Comment: NEGA TIVE FOR INTRAEPITHELIAL LESION OR MALIGNANCY. Performed at: WB Performed By: #### [id number] #### [facility] [address] [address] [address] Angel Li HPV Aptima Negative Normal Negative [facility] Comment on above: Result Comment: This nucleic acid amplification test detects fourteen high-risk HPV types (16,18,31,33,35,39,45,51,52,56,58,59,66,68) without differentiation. Performed at: =G Performed By: #### [id number] #### [facility] [address] [place] [address] Dr. Angel Li Methodology: Comment Normal [facility] Comment on above: Result Comment: This liquid based ThinPrep(R) pap test was screened with the use of an image guided system. Performed at: WB Performed By: #### [id number] #### [facility] [address] [place] [address] Dr. Angel Li Note: Comment Normal [facility] Comment on above: Result Comment: The Pap smear is a screening test designed to aid in the detection of premalignant and malignant conditions of the uterine cervix. It is not a diagnostic procedure and should not be used as the sole means of detecting cervical cancer. Both false-positive and false-negative reports do occur. . Performed at: WB Performed By: #### [id number] #### [facility] [address] [address] [address] Angel Li Performed by: Comment Normal [facility] Comment on above: Result Comment: Shyanne Back, Kiln Setter (ASCP) Performed at: WB Performed By: #### [id number] #### [facility] [address] [address] [address] Angel Li Specimen adequacy: Comment Normal [facility] Comment on above: Result Comment: Sati sfactory for evaluation. Endocervical and/or squamous metaplastic cells (endocervical component) are present. Performed at: WB Performed By: #### [id number] #### [facility] [address] [place] [address] Dr. Angel Li VAGINITIS/VAGINOSIS DNA PROB Marcelino 03-08-2022 Gracia species Negative Normal Negative [facility] Comment on above: Performed By: #### V AGINT #### [facility] [address] [address] [address] Angel Li Gardnerella vaginalis Positive Abnormal Negative [facility] Comment on above: Performed By: #### V AGINT #### [facility] [address] [place] [address] Dr. Angel Li Trichomonas vaginalis Negative Normal Negative [facility] Comment on above: Performed By: #### V AGINT #### [facility] [address] [place] [address] Dr. Angel Li BRAIN & CERVICAL SPINE MRI D ISCRETE DATAon 11-14-2021 Brain Enhancing Lesions None [facility] Brain Interval Improvement None [facility] Brain New T2 Lesions [facility] Brain Other Significant MRI Findings None. [facility] Brain Parenchymal Volume Loss None [facility] Brain T2 Presto of Disease Moderate [facility] MRI BRAIN WO/W IVCONon 11-14 [facility] CBC W Auto Differential pane l (Bld)on 09-18-2021 Abs Immature Gran <0.03 <0.10 k/uL [facility] Basophils (Bld) [#/Vol] 0.03 10*3/uL <0.11 k/uL [facility] Basophils/100 WBC (Bld) 0.5 % [facility] Differential cell count method Nom (Bld) Auto [facility] Eosinophils (Bld) [#/Vol] 0.15 10*3/uL <0.46 k/uL [facility] Eosinophils/100 WBC (Bld) 2.4 % [facility] Erythrocyte distribution width (RBC) [Ratio] 14.2 % 11.5 - 15.0 % [facility] Hematocrit (Bld) [Volume fraction] 41.5 % 36.0 - 46.0 % [facility] Hemoglobin (Bld) [Mass/Vol] 12.9 g/dL 11.5 - 15.5 g/dL [facility] Immature Gran % 0.3 % [facility] Lymphocytes (Bld) [#/Vol] 0.60 10*3/uL Low 1.00 - 4.00 k/uL [facility] Lymphocytes/100 WBC (Bld) 9.7 % [facility] MCH (RBC) [Entitic mass] 29.3 pg 26.0 - 34.0 pg [facility] MCHC (RBC) [Mass/Vol] 31.1 g/dL 30.5 - 36.0 g/dL [facility] MCV (RBC) [Entitic vol] 94.3 fL 80.0 - 100.0 fL [facility] Monocytes (Bld) [#/Vol] 0.74 10*3/uL <0.87 k/uL [facility] Monocytes/100 WBC (Bld) 12.0 % [facility] Neutrophils (Bld) [#/Vol] 4.62 10*3/uL 1.45 - 7.50 k/uL [facility] Neutrophils/100 WBC (Bld) 75.1 % [facility] Nucleated RBC (Bld) [#/Vol] 10*3/uL <0.01 k/uL [facility] Nucleated RBC/100 WBC (Bld) [Ratio] 0.0 /100 WBC [facility] Platelet mean volume (Bld) [Entitic vol] 12.5 fL 9.0 - 12.7 fL [facility] Platelets (Bld) [#/Vol] 181 10*3/uL 150 - 400 k/uL [facility] RBC (Bld) [#/Vol] 4.40 10*6/uL 3.90 - 5.2 0 m/uL [facility] WBC (Bld) [#/Vol] 6.16 10*3/uL 3.70 - 11. 00 k/uL [facility] Comprehensive metabolic 2000 panelon 09-18-2021 Albumin [Mass/Vol] 3.8 g/dL Low 3.9 - 4.9 g/dL [facility] ALP [Catalytic activity/Vol] 114 U/L 34 - 123 U/L [facility] ALT [Catalytic activity/Vol] 16 U/L 7 - 38 U/L [facility] Anion gap [Moles/Vol] 11 mmol/L 9 - 18 mmol/L [facility] AST [Catalytic activity/Vol] 21 U/L 13 - 35 U/L [facility] Bilirubin [Mass/Vol] 0.4 mg/dL 0.2 - 1 .3 mg/dL [facility] Calcium [Mass/Vol] 9.0 mg/dL 8.5 - 10. 2 mg/dL [facility] Chloride [Moles/Vol] 102 mmol/L 97 - 10 5 mmol/L [facility] CO2 [Moles/Vol] 25 mmol/L 22 - 30 mmol/L [facility] Creatinine [Mass/Vol] 0.97 mg/dL High 0.58 - 0.96 mg/dL [facility] Estimated Glomerular Filtration Rate 70 mL/min/1.73m >=60 mL/min/1.73m [facility] Glucose [Mass/Vol] 60 mg/dL Low 74 - 99 mg/dL [facility] Potassium [Moles/Vol] 4.0 mmol/L 3.7 - 5.1 mmol/L [facility] Protein [Mass/Vol] 7.0 g/dL 6.3 - 8.0 g/dL [facility] Sodium [Moles/Vol] 138 mmol/L 136 - 144 mmol/L [facility] Urea nitrogen [Mass/Vol] 10 mg/dL 7 - 21 mg/dL [facility] LIPID PANEL BASICon 09-19-19 Cholesterol [Mass/Vol] 142 mg/dL <200 mg/dL [facility] Cholesterol in HDL [Mass/Vol] 39 mg/dL Low >39 mg/dL [facility] Cholesterol in LDL [Mass/Vol] 72 mg/dL <100 mg/dL [facility] Cholesterol in LDL/Cholesterol in HDL [Mass ratio] 1.85 {ratio} <2.54 [facility] Cholesterol in VLDL [Mass/Vol] 31 mg/dL High <30 mg/dL [facility] Cholesterol non HDL [Mass/Vol] 103 mg/dL <130 mg/dL [facility] Cholesterol.total/Cho lesterol in HDL [Mass ratio] 3.64 {ratio} <5.10 [facility] Fasting Time 14 hours [facility] Triglyceride [Mass/Vol] 157 mg/dL High <150 mg/dL [facility] Antoni 09-05-2021 L - -------- Specimen: Received: 09/05/21 Status: KLEVER Kanu Num: [id number] Spec Type: Surgical Subm Dr: Tyshawn Palencia MD Tissues: A Colon Biopsy (RANDOM COLON BX) B Colon - Polyp (TRANSVERSE) Procedures: HE Stain/4, Gross/Micro L4/2 -------- Patient Age/Sex Location Account Attending Physician -------- Yamilka Vasquez 51/F [id number] Tyshawn Palencia MD -------- SPEC NUM: RECD: 09/05/21 STATUS: KLEVER GRAHAM NUM: [id number] FELECIA: 09/05/21[facility] DR: Tyshawn Palencia MD ENTERED: 09/05/21 [facility] DR: SPEC TYPE: Surgical DEPT: S ORDERED: HE Stain/4, Gross/Micro L4/2 ORDERED: HE Stain/4, Gross/Micro L4/2 Pathological Diagnosis A. Random colon, biopsy: - Fragments of colonic mucosa with lymphoid aggregates. - No significant pathologic findings. B. Transverse colon polyp, polypectomy: - Multiple fragments of tubular adenoma. Clinical Information Rectal bleeding, constipation Gross Description A. Received in formalin labeled with the patient's name, number and random colon biopsy are multiple pinedo tissue fragments aggregating 0.8 x 0.5 x 0.2 cm. Entirely submitted in one cassette labeled A1. Type of Fixative: 10% Neutral Buffered Formalin (SM/YJ) B. Received in formalin labeled with the patient's name, number and transverse colon polyp are multiple pinedo tissue fragments aggregating 1.2 x 1.2 x 0.4 cm. Entirely submitted in one cassette labeled B1. Type of Fixative: 10% Neutral Buffered Formalin (SM/YJ) -------- Specimen: [id number] Received: 09/05/21 Status: KLEVER Richardsonneida Num: [id number] Spec Type: Surgical Subm Dr: Tyshawn Palencia MD Tissues: A Colon Biopsy (RANDOM COLON BX) B Colon - Polyp (TRANSVERSE) Procedures: HE Stain/4, Gross/Micro L4/2 -------- Patient: Yamilka Vasquez [id number] (Continued) -------- Specimen: Received: 09/05/21 (Continued) Signed (signature on file) Mikie Castanon MD 09/06/211549 -------- Specimen: Received: 09/05/21 Status: KLEVER Graham Num: [id number] Spec Type: Surgical Subm Dr: Tyshawn Palencia MD Tissues: A Colon Biopsy (RANDOM COLON BX) B Colon - Polyp (TRANSVERSE) Procedures: HE Stain/4, Gross/Micro L4/2 -------- Patient: Yamilka Vasquez [id number] (Continued) -------- Specimen: Received: 09/05/21 (Continued) Microscopic Description A. Two glass slides with H E stained material have been examined. The microscopic findings support the above pathologic diagnosis. B. Two glass slides with H E stained material have been examined. The microscopic findings support the above pathologic diagnosis. CPT Codes 98280?2 -------- -------- Specimen: Received: 09/05/21 Status: KLEVER Richardsonneida Num: [id number] Spec Type: Surgical Subm Dr: Tyshawn Palencia MD Tissues: A Colon Biopsy (RANDOM COLON BX) B Colon - Polyp (TRANSVERSE) Procedures: HE Stain/4, Gross/Micro L4/2 -------- Patient: AntonileeYamilka [id number] (Continued) -------- Signed (signature on file) Mikie Castanon MD 09/06/21 1550 [facility] COVID-19 Antigenon 2 COVID-19 Antigen Healthcare Worker?: N Reference Range: Negative Negative results, from patients with symptom onset beyond five days, should be treated as presumptive and confirmation with a molecular assay, if necessary, for patient management, may be performed. Negative results do not rule out COVID-19 and should not be used as the sole basis for treatment or patient management decisions, including infection control decisions. Negative results should be considered in the context of a patient's recent exposures, history and the presence of clinical signs and symptoms consistent with COVID-19. The Jamila SARS Antigen ELAINA does not differentiate between SARS-CoV and SARS-CoV-2. This test was developed and its performance characteristic determined by [employer] and validated at [facility]. This test has not been FDA cleared or approved. This test has been authorized by FDA under an Emergency Use Authorization (EUA). This test has been validated in accordance with the FDA's Guidance Document (Policy for Diagnostics Testing in Laboratories Certified to Perform High Complexity Testing under CLIA prior to Emergency Use Authorization for Coronavirus Disease-2019 during the Public Health Emergency) issued on August 20, 2019. This test is only authorized for the duration of time the declaration that circumstances exist justifying the authorization of the emergency use of in vitro diagnostic tests for detection of SARS-CoV-2 virus and/or diagnosis of COVID-19 infection under section 564(b)(1) of the Act, 21 U.S.C. 360bbb-3(b)(1), unless the authorization is terminated or revoked sooner. SARS-CoV+SARS-CoV-2 (COVID-19) Ag [Presence] in Respiratory specimen by Rapid immunoassay Negative for SARS Antigen by ELAINA PERFORMED BY: [facility] [place] [address] PATHOLOGIST MAIL OFFICER JESSICA SMITH M.D. Normal [facility] Comment on above: Performed By: #### S OFDENNISEG, COVID-19 JAMILA #### [facility] [address] COVID-19 SOFIAOrdered By: Mague Palencia on 09-01-2021 SARS-CoV+SARS-CoV-2 (COVID-19) Ag IA.rapid Ql (Resp) Negative Negative [facility] Comment on above: This is a duplicate Jamila SARS Antigen (ELAINA) result to be used for statistical tracking purpose only. No Panel InformationOrdered By: Tyshawn Palencia on 09-01-2021 SARS Antigen (LFIA) [facility] Jamila Ag Negativeon 09-02-19 22 Jamila Ag Negative Negative Normal Negative [facility] Comment on above: Result Comment: This is a duplicate Jamila SARS Antigen (ELAINA) result to be used for statistical tracking purpose only. PERFORMED BY: [facility] [address] [place] [address] PATHOLOGIST MAIL OFFICER JESSICA SMITH M.D. Performed By: #### S OFDENNISEG, COVID-19 JAMILA #### [facility] [address] CBC W/AUTO DIFFon 05-07-2017 % NEUTROPHILS 69.5 % Normal [facility] ABS BASOPHILS 0.0 K/ul Normal 0.0-0.1 [facility] Basophils/100 WBC Auto (Bld) 0.8 % Normal [facility] Comment on above: Result Comment: MANU AL DIFFERENTIAL PERFORMED Eosinophils 0.1 10*3/uL Normal 0.1-0.4 [facility] Eosinophils/100 leukocytes 2.7 % Normal [facility] Erythrocyte distribution width Auto Ratio (RBC) 12.1 % Normal 10.8-14.8 [facility] Erythrocytes (RBC) 4.69 10*6/uL Normal 4.00-5.50 [facility] Hematocrit (HCT) 41.2 % Normal 36.0-48.0 [facility] Hemoglobin mass conc (Bld) 13.9 g/dL Normal 12.0-16.0 [facility] Lymphocytes 0.7 10*3/uL Low 0.8-5.2 [facility] Lymphocytes/100 leukocytes 13.2 % Normal [facility] MCH 29.6 pg Normal 27.0-34.0 [facility] MCHC mass conc (RBC) 33.7 g/dL Normal 31.0-36.0 [facility] MCV 87.8 fL Normal 80.-100. [facility] Monocytes 0.7 10*3/uL Normal 0.1-0.9 [facility] Monocytes/100 leukocytes 13.6 % Normal [facility] Neutrophils 3.6 10*3/uL Normal 1.3-9.1 [facility] Platelets 171 10*3/uL Normal 150.-450. [facility] WBC (Leukocytes) 5.2 10*3/uL Normal 3.7-10.8 [facility] COMPREHENSIVE METABOLIC PANE L WITH GFRon 05-07-2017 Alanine aminotransferase (ALT) 21 U/L Normal 5-59 [facility] Albumin 4.2 g/dL Normal 3.2-5.3 [facility] ALK PHOS 80 IU/L Normal 35-121 [facility] Anion gap 12 mmol/L Normal [facility] AST-SGOT 22 IU/L Normal 10-42 [facility] Bilirubin (direct) 0.5 mg/dL Normal 0.2-1.3 [facility] Calcium 9.3 mg/dL Normal 8.7-10.8 [facility] Chloride 107 mmol/L Normal 95-111 [facility] CO2 29 mmol/L Normal 21-32 [facility] Creatinine 0.7 mg/dL Normal 0.5-1.3 [facility] eGFR (black) 108 mL/min/{1.73_m2} Normal >60 [facility] eGFR (non-black) 89 mL/min/{1.73_m2} Normal >60 [facility] Comment on above: Result Comment: * ES TIMATED GFR (eGFR) IS CALCULATED FROM SERUM CREATININE AND OTHER VARIABLES AFFECTING ITS VALUE (AGE, RACE, AND SEX). * FOR PATIENT WITH ESTABLISHED CHRONIC KIDNEY DISEASE, THE CHART BELOW DEFINES STAGES WITH eGFR VALUES. Stage 1 90 mL/min/1.73 m2 or greater Stage 2 60-89 mL/min/1.73 m2 Stage 3 30-59 mL/min/1.73 m2 Stage 4 15-29 mL/min/1.73 m2 Stage 5 14 mL/min/1.73 m2 or less Glucose mass conc 78 mg/dL Normal 70-[address] [facility] [employer] Comment on above: Result Comment: DIAG NOSTIC THRESHOLDS FOR DIABETES AND IMPAIRED FASTING GLUCOSE (IFG) FASTING PLASMA GLUCOSE NORMAL <100 mg/dL IFG 100-125 mg/dL DIABETES >/= 126 mg/dL Potassium molar conc 4.1 mmol/L Normal 3.5-5.4 [facility] Sodium 144 mmol/L Normal 134-147 [facility] T. PROTEIN 6.8 g/dl Normal 5.8-8.0 [facility] Urea nitrogen 14 mg/dL Normal 10-20 [facility] LIPID PANEL (INCLUDES CALCUL ATED LDL)on 05-07-2017 Cholesterol 172 mg/dL Normal <[address] [facility] Cholesterol to HDL Ratio 3.1 {ratio} Normal <[address] [facility] HDL-CHOL 56 mg/dl Normal 40-60 [facility] Comment on above: Result Comment: HDL <40 mg/dL IS A RISK FACTOR FOR CORONARY HEART DISEASE. HDL >60 mg/dL IS A NEGATIVE RISK FACTOR FOR CORONARY HEART DISEASE. LDL to HDL Ratio 1.7 Normal <3.5 [facility] LDL-CHOL, CALCULATED 95 mg/dL Normal <130 [employer] Comment on above: Result Comment: LDL CHOLESTEROL REFERENCE RANGE FOR 0-19 YEARS: DESIRABLE <110 mg/dL, BORDERLINE 110-129, HIGH RISK >130 LDL CHOLESTEROL REFERENCE RANGE FOR ADULTS: DESIRABLE <100 mg/dL, BORDERLINE 130-159, HIGH RISK >160REFERENCE RANGES REVISED 10/28/15 ACCORDING TO NCEP GUIDELINES Triglyceride 107 mg/dL Normal <[address] [facility] VLDL-CHOL, CALCULATED 21 mg/dL Normal <30 [facility] [employer] [facility] TSH WITH FT4 REFLEXon 2016 Thyroid stimulating hormone (TSH) 1.480 uIU/mL Normal 0.40-4.40 [facility] Comment on above: Result Comment: [employer] [address] [place], [place] [address]Laboratory Director: FERMÍN MarinelliIA No. [id number] CAP Accreditation No. [id number] CARDIOPULMONARY REPORT CLDon 12-24-2016 [address] REPORT [address] [facility] [address] [place], [place] [id number] [place], [place] [address]Rlmvdau Name: YAMILKA VASQUEZ Visit ID: [id number] Record #: [id number] : 1970CC: Frances Aguilera CNP Pulmonary Function TestDate: 12/20/2016INDICATIONS FOR THE STUDY:Cough and tobacco use.REFERRING PHYSICIAN:Frances Aguilera CNPTEST DESCRIPTION:Patient gave good effort and cooperation. All testing met ATS criteria. Albuterol treatment was given without adverse reactions. Patient noted asubjective improvement after albuterol treatment.FINDINGS:[place] [employer]:FVC is mildly reduced at 83% of predicted (2.95 L).FEV1 is moderately reduced at 56% of predicted (1.64 L).FEV1 to FVC ratio is moderately reduced at 69% of predicted.Midflows are very severely reduced.Maximum voluntary ventilation is moderately reduced at 55% of predicted,but similar to FEV1. This does not support any evidence of respiratorymuscle weakness.Flow vital capacity is mildly reduced at 80% of predicted but similar toforced vital capacity.Significant bronchodilator response is seen in all lung mechanics.FINAL IMPRESSION:1. Moderate obstructive ventilatory abnormality as well as very severe obstruction in the small airways.2. Significant bronchodilator response is seen. Clinical correlation is recommended. Author: CAROL Rao/[id number] T: 12/24/2016 10:41 cc: Frances Aguilera CNP Electronically Authenticated and Edited by:Jacki Hess MD On 12/31/2016 09:16 AM EDT [facility] Vital Signs Date Time Vital Sign Value Performing Clinician Facility 06-17-2024 09:33-0500 Body mass index (BMI) [Ratio] 47.09 kg/m2 Sherrie Boone [employer] Work Phone: [facility] 06-17-2024 09:33-0500 Body temperature 97.7 [degF] Sherrie Boone [employer] Work Phone: [facility] 06-17-2024 09:33-0500 Body weight 128.37 kg Sherrie Lalpatrick [employer] Work Phone: [facility] 06-17-2024 09:33-0500 Diastolic blood pressure 82 mm[Hg] Sherrie Boone [employer] Work Phone: [facility] 06-17-2024 09:33-0500 Heart rate 100 /min Sherrie Boone [employer] Work Phone: [facility] 06-17-2024 09:33-0500 Respiratory rate 16 /min Sherrie Lalpatrick [employer] Work Phone: [facility] 06-17-2024 09:33-0500 SaO2% (BldA) [Mass fraction] 97 % Sherrie Lalpatrick [employer] Work Phone: [facility] 06-17-2024 09:33-0500 Systolic blood pressure 120 mm[Hg] Sherrie Boone [employer] Work Phone: [facility] 05-18-2024 09:18-0500 Body height 165.1 cm Kristin Harveyhholz [employer] Work Phone: [facility] 05-18-2024 09:18-0500 Body mass index (BMI) [Ratio] 46.93 kg/m2 Kristin Harveyhholz [employer] Work Phone: [facility] 05-18-2024 09:18-0500 Body temperature 98.1 [degF] Kristin Aichholz [employer] Work Phone: [facility] 05-18-2024 09:18-0500 Body weight 127.91 kg Kristin Aichholz [employer] Work Phone: [facility] 05-18-2024 09:18-0500 Diastolic blood pressure 90 mm[Hg] Kristin Aichholz [employer] Work Phone: [facility] 05-18-2024 09:18-0500 Heart rate 81 /min Kristin Aichholz [employer] Work Phone: [facility] 05-18-2024 09:18-0500 Respiratory rate 19 /min Kristin Gracia [employer] Work Phone: [facility] 05-18-2024 09:18-0500 SaO2% (BldA) [Mass fraction] 95 % Krisitn Mesaz [employer] Work Phone: [facility] 05-18-2024 09:18-0500 Systolic blood pressure 144 mm[Hg] Kristin Ascenciojesicaz [employer] Work Phone: [facility] 04-27-2024 09:03-0500 Body height 165.1 cm [facility] Work Phone: [facility] 04-27-2024 09:03-0500 Body mass index (BMI) [Ratio] 46.43 kg/m2 [facility] Work Phone: [facility] 04-27-2024 09:03-0500 Body weight 126.55 kg [facility] Work Phone: [facility] 03-05-2024 10:04-0400 Body height 165.1 cm Kristin Mesaz [employer] Work Phone: [facility] 03-05-2024 10:04-0400 Body mass index (BMI) [Ratio] 46.49 kg/m2 Kristinvirginia Mesaz [employer] Work Phone: [facility] 03-05-2024 10:04-0400 Body temperature 97.59 [degF] Kristin Ascenciovicky [employer] Work Phone: [facility] 03-05-2024 10:04-0400 Body weight 126.73 kg Kristinvirginia Mesaz [employer] Work Phone: [facility] 03-05-2024 10:04-0400 Diastolic blood pressure 82 mm[Hg] Kristin Bonitaz [employer] Work Phone: [facility] 03-05-2024 10:04-0400 Heart rate 82 /min Kristin Bonitaz [employer] Work Phone: [facility] 03-05-2024 10:04-0400 Respiratory rate 18 /min Kristin Ascenciovicky [employer] Work Phone: [facility] 03-05-2024 10:04-0400 SaO2% (BldA) [Mass fraction] 97 % Kristin Gracia [employer] Work Phone: [facility] 03-05-2024 10:04-0400 Systolic blood pressure 112 mm[Hg] Kristin Ascenciovicky [employer] Work Phone: [facility] 02-25-2024 08:32-0400 Body height 165.1 cm Eliazar Brooks DO Work Phone: [facility] 02-25-2024 08:32-0400 Body mass index (BMI) [Ratio] 48.09 kg/m2 Eliazar Brooks DO Work Phone: [facility] 02-25-2024 08:32-0400 Body weight 131.09 kg Eliazar Brooks Work Phone: [facility] 02-10-2024 17:11-0400 Heart rate 82 /min Eliazar Brooks [facility] 02-10-2024 17:11-0400 SaO2% (BldA) [Mass fraction] 94 % Eliazar Brooks [facility] 02-10-2024 17:11-0400 Diastolic blood pressure 89 mm[Hg] Eliazar Brooks [facility] 02-10-2024 17:11-0400 Mean blood pressure 109 mm[Hg] Eliazar Brooks [facility] 02-10-2024 17:11-0400 Systolic blood pressure 148 mm[Hg] Eliazar Brooks [facility] 02-10-2024 17:11-0400 Respiratory rate 16 /min Eliazar Brooks [facility] 02-10-2024 17:11-0400 Body temperature 98.24 [degF] Eliazar Brooks [facility] 02-10-2024 16:06-0400 Heart rate 81 /min Eliazar Zbigniew [facility] 02-10-2024 16:06-0400 SaO2% (BldA) [Mass fraction] 99 % Eliazar Zbigniew [facility] 02-10-2024 16:06-0400 Diastolic blood pressure 81 mm[Hg] Eliazar Brooks [facility] 02-10-2024 16:06-0400 Mean blood pressure 98 mm[Hg] Eliazar Brooks [facility] [facility] 02-10-2024 16:06-0400 Systolic blood pressure 134 mm[Hg] Eliazar Brooks [facility] 02-10-2024 16:05-0400 Respiratory rate 16 /min Eliazar Brooks [facility] 02-10-2024 16:00-0400 Body temperature 97.52 [degF] Eliazar Zbigniew [facility] 02-10-2024 16:00-0400 Respiratory rate 22 /min Eliazar Brooks [facility] 02-10-2024 16:00-0400 SaO2% (BldA) [Mass fraction] 95 % Eliazar Brooks [facility] 02-10-2024 16:00-0400 Systolic blood pressure 139 mm[Hg] Eliazar Brooks [facility] 02-10-2024 15:50-0400 Mean blood pressure 106 mm[Hg] Eliazar Brooks [facility] 02-10-2024 15:50-0400 Respiratory rate 24 /min Eliazar Brooks [facility] 02-10-2024 15:45-0400 Respiratory rate 9 /min Eliazar Brooks [facility] 02-10-2024 15:37-0400 Blood Pressure Location Eliazar Brooks [facility] 02-10-2024 15:37-0400 Body temperature 97.7 [degF] Eliazar Brooks [facility] 02-10-2024 15:30-0400 Respiratory rate 18 /min Eliazar Brooks [facility] 02-10-2024 12:04-0400 Blood Pressure Location Eliazar Brooks [facility] 02-10-2024 12:04-0400 Mean blood pressure 100 mm[Hg] Eliazar Brooks [facility] 02-10-2024 12:04-0400 Heart rate 94 /min Eliazar Brooks [facility] 02-10-2024 12:03-0400 Body temperature 97.88 [degF] Eliazar Brooks [facility] 02-10-2024 12:03-0400 Blood Pressure Location Eliazar Brooks [facility] 02-03-2024 14:28-0400 Body height 165.1 cm Kristin Gracia [employer] Work Phone: [facility] 02-03-2024 14:28-0400 Body mass index (BMI) [Ratio] 48.09 kg/m2 Kristin Basil [employer] Work Phone: [facility] 02-03-2024 14:28-0400 Body temperature 98.49 [degF] Kristin Basil [employer] Work Phone: [facility] 02-03-2024 14:28-0400 Body weight 131.09 kg Kristin Basil [employer] Work Phone: [facility] 02-03-2024 14:28-0400 Diastolic blood pressure 90 mm[Hg] Kristin Basil [employer] Work Phone: [facility] 02-03-2024 14:28-0400 Heart rate 83 /min Kristin Gracia [employer] Work Phone: [facility] 02-03-2024 14:28-0400 Respiratory rate 18 /min Kristin Gracia [employer] Work Phone: [facility] 02-03-2024 14:28-0400 SaO2% (BldA) [Mass fraction] 93 % Kristin Gracia [employer] Work Phone: [facility] 02-03-2024 14:28-0400 Systolic blood pressure 128 mm[Hg] Kristin Gracia [employer] Work Phone: [facility] 01-30-2024 10:45-0400 Body height 165.1 cm Eliazar Brooks DO Work Phone: [facility] 01-30-2024 10:45-0400 Body mass index (BMI) [Ratio] 48.92 kg/m2 Eliazar Brooks DO Work Phone: [facility] 01-30-2024 10:45-0400 Body weight 133.36 kg Eliazar Zbigniew DO Work Phone: [facility] 07-10-2023 15:53-0500 Body height 167.6 cm Paris Paris DO Work Phone: [facility] 07-10-2023 15:53-0500 Body weight 134.26 kg Paris Paris DO Work Phone: [facility] 07-10-2023 15:53-0500 Heart rate 89 /min Paris Paris DO Work Phone: [facility] 07-10-2023 15:53-0500 SaO2% (BldA) [Mass fraction] 97 % Paris Paris DO Work Phone: [facility] 06-26-2023 11:34-0500 Body height 165.1 cm Shaikh Jonn BENITEZ Work Phone: [facility] 06-26-2023 11:34-0500 Body mass index (BMI) [Ratio] 48.09 kg/m2 Shaikh Jonn BENITEZ Work Phone: [facility] 06-26-2023 11:34-0500 Body temperature 98.6 [degF] Shaikh Jonn BENITEZ Work Phone: [facility] 06-26-2023 11:34-0500 Body weight 131.09 kg Shaikh Jonn BENITEZ Work Phone: [facility] 06-26-2023 11:34-0500 Diastolic blood pressure 80 mm[Hg] Shaikh Jonn BENITEZ Work Phone: [facility] 06-26-2023 11:34-0500 Heart rate 77 /min Shaikh Jonn BENITEZ Work Phone: [facility] 06-26-2023 11:34-0500 SaO2% (BldA) [Mass fraction] 96 % Shaikh Jonn BENITEZ Work Phone: [facility] 06-26-2023 11:34-0500 Systolic blood pressure 136 mm[Hg] Shaikh Jonn BENITEZ Work Phone: [facility] 04-18-2022 10:30-0500 Body height 173.99 cm Tyshawn Palencia Other [employer] Other 04-18-2022 10:30-0500 Body mass index (BMI) [Ratio] 46.68 kg/m2 Tyshawn Palencia Other [employer] Other 04-18-2022 10:30-0500 Body weight 141.34 kg Tyshawn Palencia Other [employer] Other 04-18-2022 10:30-0500 Diastolic blood pressure 89 mm[Hg] Tyshawn Palencia Other [employer] Other 04-18-2022 10:30-0500 Systolic blood pressure 129 mm[Hg] Tyshawn Palencia Other [employer] Other 03-22-2022 12:54-0400 Body height 172.7 cm Jessica Young PA-C Work Phone: [facility] 03-22-2022 12:54-0400 Body weight 131.54 kg Jessica Young PA-C Work Phone: [facility] 03-22-2022 12:54-0400 Diastolic blood pressure 76 mm[Hg] Jessica Young PA-C Work Phone: [facility] 03-22-2022 12:54-0400 Heart rate 108 /min Jessica Young PA-C Work Phone: [facility] 03-22-2022 12:54-0400 Systolic blood pressure 129 mm[Hg] Jessica Young PA-C Work Phone: [facility] 03-22-2022 09:30-0400 Body temperature 97 [degF] Infusion 10 Work Phone: [facility] 03-22-2022 09:30-0400 Diastolic blood pressure 83 mm[Hg] Infusion 10 Work Phone: [facility] 03-22-2022 09:30-0400 Heart rate 79 /min Infusion 10 Work Phone: [facility] 03-22-2022 09:30-0400 Systolic blood pressure 152 mm[Hg] Infusion 10 Work Phone: [facility] 12-13-2021 10:30-0400 Body height 173.99 cm Tyshawn Palencia Other [employer] Other 12-13-2021 10:30-0400 Body mass index (BMI) [Ratio] 45.55 kg/m2 Tyshawn Palencia Other [employer] Other 12-13-2021 10:30-0400 Body weight 137.89 kg Tyshawn Palencia Other [facility] Other 11-14-2021 08:42-0400 Body height 174 cm Jessica Young PA-C Work Phone: [facility] 11-14-2021 08:42-0400 Body weight 132 kg Jessica Young PA-C Work Phone: [facility] 11-14-2021 08:42-0400 Diastolic blood pressure 68 mm[Hg] Jessica Young PA-C Work Phone: [facility] 11-14-2021 08:42-0400 Heart rate 88 /min Jessica Young PA-C Work Phone: [facility] 11-14-2021 08:42-0400 Systolic blood pressure 112 mm[Hg] Jessica Young PA-C Work Phone: [facility] 09-18-2021 12:00-0400 Body temperature 97.9 [degF] Infusion 2 Work Phone: [facility] 09-18-2021 12:00-0400 Diastolic blood pressure 89 mm[Hg] Infusion 2 Work Phone: [facility] 09-18-2021 12:00-0400 Heart rate 93 /min Infusion 2 Work Phone: [facility] 09-18-2021 12:00-0400 Respiratory rate 16 /min Infusion 2 Work Phone: [facility] 09-18-2021 12:00-0400 Systolic blood pressure 131 mm[Hg] Infusion 2 Work Phone: [facility] 09-18-2021 08:00-0400 Body height 174 cm Infusion 2 Work Phone: [facility] 09-18-2021 08:00-0400 Body weight 117.94 kg Infusion 2 Work Phone: [facility] 09-05-2021 10:45-0400 Diastolic blood pressure 68 mm[Hg] [facility] Work Phone: [facility] 09-05-2021 10:45-0400 Heart rate 91 /min Services [employer] Work Phone: [facility] 09-05-2021 10:45-0400 Respiratory rate 18 /min [facility] [employer] Work Phone: [facility] 09-05-2021 10:45-0400 SaO2% (BldA) [Mass fraction] 99 % [facility] [employer] Work Phone: [facility] 09-05-2021 10:45-0400 Systolic blood pressure 122 mm[Hg] [facility] [employer] Work Phone: [facility] 09-05-2021 08:26-0400 Body height 173.99 cm [facility] [employer] Work Phone: [facility] 09-05-2021 08:26-0400 Body mass index (BMI) [Ratio] 43.4 kg/m2 [facility] [employer] Work Phone: [facility] 09-05-2021 08:26-0400 Body temperature 98.2 [degF] [facility] [employer] Work Phone: [facility] 09-05-2021 08:26-0400 Body weight 131.54 kg [facility] [employer] Work Phone: [facility] 08-14-2021 11:30-0400 Body height 173.99 cm Tyshawn Palencia Other [employer] Other 08-14-2021 11:30-0400 Body mass index (BMI) [Ratio] 43.45 kg/m2 Tyshawn Palencia Other [employer] Other 08-14-2021 11:30-0400 Body weight 131.54 kg Tyshawn Palencia Other [employer] Other Encounters Encounter Date Encounter Type Care Provider Facility Start: 06-17-2024 End: 06-17-2024 Bamboo flowsheet Sherrie Boone [employer] Work Phone: [facility] Start: 06-17-2024 End: 06-17-2024 Bamboo flowsheet Sherrie Boone [employer]ER Work Phone: [facility] Start: 06-17-2024 End: 06-17-2024 Office outpatient visit 10 minutes Sherrie Augustink [employer] Work Phone: [facility] Comment on above: Acute non-recurrent frontal sinusitis (Primary Dx) Start: 06-17-2024 End: 06-17-2024 ambulatory SHERRIE CORNEJOTRICK Not Available Start: 05-18-2024 End: 05-18-2024 Bamboo flowsheet Kristin Gracia [employer] Work Phone: [facility] Start: 05-18-2024 End: 05-18-2024 Bamboo flowsheet Kristin Basil [employer] Work Phone: [facility] Start: 05-18-2024 End: 05-18-2024 Patient encounter procedure Kristin Gracia [employer] Work Phone: [facility] Comment on above: Encounter for subseq uent annual wellness visit (AWV) in Medicare patient (Primary Dx); LORENZO (obstructive sleep apnea); Multiple sclerosis (CMS/HCC); Primary insomnia; Class 3 severe obesity without serious comorbidity with body mass index (BMI) of 45.0 to 49.9 in adult, unspecified obesity type (CMS/HCC); Encounter for screening mammogram for malignant neoplasm of breast; Moderate episode of recurrent major depressive disorder (CMS/HCC); Generalized anxiety disorder with panic attacks (CMS/HCC) Start: 05-18-2024 End: 05-18-2024 ambulatory KRISTIN BASIL Not Available Start: 05-07-2024 End: 05-07-2024 Orders Only Jessica Clarke PA-C Work Phone: [facility] Start: 05-04-2024 End: 05-05-2024 Telephone encounter Aria Agrawal PT [facility] Comment on above: re: PT Eval tomorrow ; Call Back Start: 04-27-2024 End: 04-27-2024 Telephone encounter Kristin Gracia NP Work Phone: [facility] Start: 04-27-2024 End: 04-27-2024 Patient encounter procedure Yahaira Vazquez PA Work Phone: [facility] Comment on above: Adhesive capsulitis of left shoulder (Primary Dx); S/P arthroscopy of left shoulder Start: 04-27-2024 End: 04-27-2024 ambulatory YAHAIRA VAZQUEZ Not Available Start: 04-26-2024 End: 04-27-2024 Refill Kristin Gracia [employer] Work Phone: [facility] Comment on above: Anxiety and depressi on (CMS/HCC) Start: 04-15-2024 End: 04-15-2024 Refill Kristin Gracia [employer]ER Work Phone: [facility] Comment on above: Acute cough (Primary Dx) Start: 04-14-2024 End: 04-14-2024 Refill Kristin Gracia [employer] Work Phone: [facility] Comment on above: Acute non-recurrent sinusitis of other sinus (Primary Dx) Start: 04-01-2024 End: 04-02-2024 Telephone encounter Aria Agrawal PT [facility] Comment on above: re: PT (She called n oting w/ the progress of PT so far she is dealing w/ great pain. She said she has a fu w/ doctor in the beginning of April and she'd like to hold-off till after. I indicated her auth ending date is 04/10/24 and she said she does not want to cont till after fu.) Start: 03-25-2024 End: 03-25-2024 Bamboo flowsheet Inderjit Pelletier [employer]ISH[employer] SUPERVISOR [facility] Start: 03-25-2024 End: 03-25-2024 Bamboo flowsheet Inderjit Pelletier [employer]URNISHINGS SUPERVISOR [facility] Start: 03-25-2024 End: 03-25-2024 ambulatory Inderjit Pelletier [employer]URNISH[employer] SUPERVISOR [facility] Comment on above: Left shoulder pain, unspecified chronicity (Primary Dx); S/P arthroscopy of left shoulder Start: 03-13-2024 End: 03-13-2024 Bamboo flowsheet Inderjit Pelletier HOUSE FURNISHINGS SUPERVISOR [facility] Start: 03-13-2024 End: 03-13-2024 Bamboo flowsheet Inderjit Pelletier HOUSE FURNISHINGS SUPERVISOR [facility] Start: 03-13-2024 End: 03-13-2024 ambulatory Inderjit Pelletier HOUSE FURNISHINGS SUPERVISOR [facility] Comment on above: Left shoulder pain, unspecified chronicity (Primary Dx); S/P arthroscopy of left shoulder Start: 03-11-2024 End: 03-11-2024 Bamboo flowsheet Eliazar Brooks DO Work Phone: [facility] Start: 03-11-2024 End: 03-11-2024 Bamboo flowsheet Eliazar Brooks DO Work Phone: [facility] Start: 03-11-2024 End: 03-11-2024 ambulatory ELIAZAR BROOKS Not Available Start: 03-09-2024 End: 03-09-2024 Telephone encounter Eliazar Brooks DO Work Phone: [facility] Start: 03-06-2024 End: 03-06-2024 ambulatory Inderjit Pelletier [employer] FURNISHINGS SUPERVISOR [facility] Comment on above: S/P arthroscopy of l eft shoulder (Primary Dx) Start: 03-05-2024 End: 03-05-2024 Bamboo flowsheet Kristin Gracia [employer]UEPRINT BLOCKER Work Phone: [facility] Start: 03-05-2024 End: 03-05-2024 Bamboo flowsheet Kristin Gracia [employer]UE[employer] BLOCKER Work Phone: [facility] Start: 03-05-2024 End: 03-05-2024 Office outpatient visit 15 minutes Kristin Gracia [employer]ER Work Phone: [facility] Comment on above: Anxiety and depressi on (CMS/HCC) (Primary Dx); Needs flu shot; Candidiasis of skin Start: 03-05-2024 End: 03-05-2024 ambulatory KRISTIN GRACIA Not Available Start: 03-03-2024 End: 03-03-2024 Bamboo flowsheet Inderjit Pelletier HOUSE FURNISHINGS SUPERVISOR [facility] Start: 03-03-2024 End: 03-03-2024 Bamboo flowsheet Inderjit Pelletier HOUSE FURNISHINGS SUPERVISOR [facility] Start: 03-03-2024 End: 03-03-2024 ambulatory Inderjit Pelletier [employer] FURNISHINGS SUPERVISOR [facility] Comment on above: S/P arthroscopy of l eft shoulder (Primary Dx) Start: 02-28-2024 End: 02-28-2024 Bamboo flowsheet Aria Agrawal PT [facility] Start: 02-28-2024 End: 02-28-2024 Bamboo flowsheet Aria Agrawal PT [facility] Start: 02-28-2024 End: 02-28-2024 ambulatory Aria Agrawal PT [facility] Comment on above: S/P arthroscopy of l eft shoulder Start: 02-25-2024 End: 02-25-2024 Patient encounter procedure Eliazar Brooks DO Work Phone: [facility] Comment on above: S/P arthroscopy of l eft shoulder (Primary Dx) Start: 02-25-2024 End: 02-25-2024 ambulatory ELIAZAR BROOKS Not Available Start: 02-14-2024 End: 02-14-2024 Telephone encounter Eliazra Brooks DO Work Phone: [facility] Start: 02-13-2024 End: 02-13-2024 Telephone encounter Eliazar Brooks DO Work Phone: [facility] Start: 02-10-2024 End: 02-10-2024 Admission to same day surgery center Eliazar Brooks [facility] Start: 02-10-2024 End: 02-10-2024 ambulatory Eliazar Brooks Facility:[facility] Start: 02-05-2024 End: 02-05-2024 ambulatory FRANCES AGUILERA Facility:[facility] Start: 02-03-2024 End: 02-03-2024 Office outpatient visit 15 minutes Kristin Gracia [employer] BLOCKER Work Phone: [facility] Comment on above: Diverticulitis (Prim donna Dx); Class 3 severe obesity without serious comorbidity with body mass index (BMI) of 45.0 to 49.9 in adult, unspecified obesity type (CMS/HCC) Start: 02-03-2024 End: 02-03-2024 Bamboo flowsheet Kristin Gracia [employer]UE[employer] BLOCKER Work Phone: [facility] Start: 02-03-2024 End: 02-03-2024 Bamboo flowsheet Kristin Gracia [employer]UEPRINT BLOCKER Work Phone: [facility] Start: 02-03-2024 End: 02-03-2024 ambulatory KRISTIN GRACIA Not Available Start: 01-30-2024 End: 01-30-2024 Bamboo flowsheet Eliazar Brooks DO Work Phone: [facility] Start: 01-30-2024 End: 01-30-2024 Bamboo flowsheet Eliazar Brooks DO Work Phone: [facility] Start: 01-30-2024 End: 01-30-2024 Patient encounter procedure Eliazar Brooks DO Work Phone: [facility] Comment on above: Pre-op testing (Prim donna Dx); Rotator cuff impingement syndrome of left shoulder Start: 01-30-2024 End: 01-30-2024 Patient encounter status Eliazar Brooks DO Work Phone: [facility] Start: 01-30-2024 End: 01-30-2024 ambulatory ELIAZAR BROOKS Not Available Start: 01-29-2024 End: 01-29-2024 Orders Only Kristin Gracia [employer] Work Phone: [facility] Comment on above: Multiple sclerosis ( CMS/HCC) (Primary Dx) Start: 01-23-2024 End: 01-23-2024 Clinisync Result Encounter Kristin Gracia [employer] Work Phone: [facility] Unsolicited Start: 01-23-2024 End: 01-23-2024 Clinisync Result Encounter Kristin Ascenciovicky [employer]ER Work Phone: [facility] Unsolicited Start: 01-23-2024 End: 01-23-2024 ambulatory SHERRIE BOONE Not Available Start: 01-14-2024 End: 01-17-2024 Telephone encounter Jessica Clarke PA-C Work Phone: [facility] Comment on above: Orders Start: 01-06-2024 End: 01-06-2024 ambulatory KRISTIN ASCENCIOHOLZ Not Available Start: 12-24-2023 End: 01-10-2024 Pre-admission assessment Eliazar Brooks [facility] Start: 12-24-2023 End: 12-24-2023 ambulatory ELIAZAR BROOKS Not Available Start: 12-19-2023 [facility] Work Phone: Infusion Start: 12-02-2023 End: 12-02-2023 ambulatory KRISTIN ASCENCIOHOLZ Not Available Start: 11-27-2023 Orders Only Jessica Almodovar Work Phone: [facility] Comment on above: Multiple sclerosis ( HCC) (Primary Dx); Vitamin D deficiency Start: 11-26-2023 Orders Only Sarthak Escobar MD, PhD Work Phone: [facility] Start: 11-13-2023 End: 11-13-2023 ambulatory YAHAIRA D HILLS Not Available Start: 11-05-2023 End: 11-05-2023 ambulatory YAHAIRA D HILLS Not Available Start: 10-10-2023 End: 10-10-2023 ambulatory KRISTIN AICHHOLZ Not Available Start: 10-07-2023 End: 10-07-2023 ambulatory YAHAIRA D HILLS Not Available Start: 09-06-2023 End: 09-06-2023 ambulatory Katerin IBANEZ-Leah Work Phone: [facility] Comment on above: Left arm weakness (P rimary Dx) Start: 09-06-2023 End: 09-06-2023 Telemedicine consultation with patient Kateirn IBNAEZ-Leah Work Phone: [facility] Start: 08-22-2023 ambulatory Jessica Almodovar Work Phone: [facility] Comment on above: Spine Start: 08-22-2023 Chart abstracting None (Historical) Neurology Start: 08-21-2023 Telephone encounter Jessica Cabello aline FIGUEROA Work Phone: [facility] Comment on above: Patient Question Start: 08-08-2023 ambulatory ELIAZAR Aiken ty:[facility] Start: 07-30-2023 End: 07-30-2023 ambulatory KRISTIN ASCENCIOJESICALee Not Available Start: 07-15-2023 Telephone encounter Jessica Irineo mireles PA-C Work Phone: [facility] Comment on above: Orders (Order for MR I needed for Brain and Cervical) Start: 07-15-2023 End: 07-15-2023 ambulatory YAHAIRA Merry ELZBIETA Not Available Start: 07-10-2023 End: 07-10-2023 ambulatory JESSICA CLARKE Facility:[facility] Start: 07-10-2023 End: 07-10-2023 Patient encounter procedure Paris E Paris DO Work Phone: Pain Management Comment on above: Cervical disc disord er with radiculopathy (Primary Dx); Cervical stenosis of spine; Chronic neck pain Start: 06-26-2023 End: 06-26-2023 ambulatory Paris E Paris DO Work Phone: Pain Management Comment on above: Pain Questionnaire Start: 06-26-2023 Lisseth Lunsford MD Work Phone: [facility] Start: 06-26-2023 Lisseth Lunsford MD Work Phone: [facility] Start: 06-26-2023 E-mail encounter dagoberto m caregiver Paris E Paris DO Work Phone: [facility] Start: 06-26-2023 End: 06-26-2023 Office outpatient visit 25 minutes Shaikh Jonn BENITEZ Work Phone: [facility] Comment on above: Multiple sclerosis ( CMS/HCC) (Primary Dx); Primary hypertension (CMS/HCC); Anxiety and depression (CMS/HCC); COPD with exacerbation (CMS/HCC); Non-recurrent acute suppurative otitis media of left ear without spontaneous rupture of tympanic membrane Start: 05-22-2023 End: 05-22-2023 ambulatory SARTHAK ESCOBAR Facility:[facility] Start: 05-02-2023 End: 05-02-2023 ambulatory Jessica Clarke PA-C Work Phone: [facility] Comment on above: Multiple sclerosis ( HCC) (Primary Dx) Start: 05-02-2023 End: 05-02-2023 Telemedicine consultation with patient Jessica Clarke PA-C Work Phone: [facility] Start: 04-22-2023 ambulatory Jessica Clarke P A-C Work Phone: [facility] Comment on above: Skull Start: 04-19-2023 ambulatory Jessica Young P A-C Work Phone: [facility] Comment on above: Skull Start: 10-17-2022 ambulatory Valdez Sousa Work Phone: Internal Medicine [facility] Start: 10-01-2022 End: 10-01-2022 ambulatory RUBINA GRACIA Facility:[facility] Start: 10-01-2022 ambulatory RUBINA BONILLAA BASIL Facil ity:[facility] Start: 09-21-2022 End: 09-21-2022 ambulatory YAHAIRA MCKEON . Facility:[facility] Start: 08-30-2022 Orders Only Jessica Clarke P A-C Work Phone: [facility] Comment on above: Multiple sclerosis, relapsing-remitting (HCC) (Primary Dx) Start: 06-05-2022 End: 06-06-[address] DOCTOR BULL Facility:[facility] Start: 04-18-2022 End: 04-18-2022 ambulatory Tyshawn Palencia Other [employer] Other Start: 04-18-2022 Office outpatient vi sit 15 minutes Tyshawn CLARK Gastroenter[facility] Start: 03-30-2022 Telephone encounter Valdez aleman MD Work Phone: [address] [place] [address] Comment on above: Patient Update Start: 03-22-2022 End: 03-22-2022 Patient encounter procedure Jessica Clarke PA-C Work Phone: [facility] Comment on above: Multiple sclerosis, relapsing-remitting (HCC) (Primary Dx) Start: 03-22-2022 End: 03-22-2022 ambulatory Infusion [facility] 10 Work Phone: Multiple Sclerosis Comment on above: Multiple sclerosis ( HCC) (Primary Dx) Start: 03-16-2022 Orders Only Sarthak Escobar MD, PhD Work Phone: [facility] Start: 03-07-2022 End: 03-07-2022 ambulatory DE ICER KRISTIN GRACIA Facility: Start: 03-06-2022 ambulatory Valdez Sousa Work Phone: [facility] Start: 02-12-2022 Telephone encounter Jessica mireles PA-C Work Phone: Neurology Comment on above: Appointment (Called pt LVM to see about setting up pt and psycology.) Start: 01-16-2022 End: 01-16-2022 ambulatory Jojo Pickard OTR/L Work Phone: [facility] Comment on above: Multiple sclerosis, relapsing-remitting (HCC) Start: 12-13-2021 End: 12-13-2021 ambulatory Tyshawn Palencia Other [employer] Other Start: 12-13-2021 Office outpatient vi sit 15 minutes Tyshawn CLARK Gastroenterology Start: 11-15-2021 ambulatory Valdez Sousa Work Phone: Internal Medicine [facility] [place] Start: 11-14-2021 End: 06-28-2022 Patient encounter procedure Jessica Clarke PA-C Work Phone: [facility] Comment on above: Multiple sclerosis, relapsing-remitting (HCC) (Primary Dx) Start: 11-14-2021 End: 11-14-2021 Subsequent hospital visit by physician Cara Manning (I-Stat/3t) Work Phone: Radiology Comment on above: Multiple sclerosis, relapsing-remitting (HCC) [G35] Start: 09-18-2021 End: 09-18-2021 ambulatory Infusion Kriss Chair 2 Work Phone: Multiple Sclerosis Comment on above: Multiple sclerosis ( HCC) (Primary Dx); Multiple sclerosis, relapsing-remitting (HCC) Start: 09-15-2021 End: 09-15-2021 ambulatory Jessica Vince FIGUEROA Work Phone: [facility] Comment on above: Multiple sclerosis, relapsing-remitting (HCC) Start: 09-15-2021 End: 09-15-2021 Telemedicine consultation with patient Jessica Clarke HENRY Work Phone: [facility] Start: 09-14-2021 End: 09-14-2021 ambulatory Tyshawn Palencia Other [employer] Other Start: 09-14-2021 Telephone encounter Tyshawn Carlisle [employer] Start: 09-05-2021 End: 09-05-2021 Admission to same day surgery center [facility] [employer] Work Phone: [facility] Start: 09-01-2021 End: 09-01-2021 Patient encounter procedure Services [facility] [facility] Work Phone: [facility] Start: 08-14-2021 End: 08-14-2021 ambulatory Tyshawn Palencia Other [employer] Other Start: 08-14-2021 Office outpatient ne w 45 minutes Tyshawn Palencia [facility] Start: 07-28-2020 End: 07-28-2020 Patient encounter procedure Jazmin Shaikh Work Phone: [facility] Work Phone: Start: 12-20-2016 End: 12-21-2016 Ambulatory [facility] Facility:[facility] Start: 11-27-2012 Patient encounter status Jessica Clarke PA-C Work Phone: [facility] Procedures Date Procedure Procedure Detail Performing Clinician Start: 04-27-2024 Arthrocentesis aspir &/inj major jt/bursa w/us Yahaira Vazquez PA Work Phone: Start: 02-25-2024 Radex shoulder compl ete minimum 2 views Eliazar Brooks DO Work Phone: Start: 02-10-2024 Arthroscopy of shoulder Eliazar Brooks Start: 01-23-2024 TBH UA (CLEAN/CATCH) MICROSCOPIC IF INDICATE Kristin Gracia [employer] Work Phone: Start: 03-07-2022 Microscopic observat ion [Identifier] in Cervix by Cyto stain Shaikh Jonn BENITEZ Work Phone: Start: 11-14-2021 BRAIN & CERVICAL SPI NE MRI DISCRETE DATA [facility] Provider Start: 11-14-2021 Mri brain brain stem w/o w/contrast material Jessica Clarke PA-C Work Phone: Start: 09-18-2021 Blood count complete auto&auto difrntl wbc Jessica Clarke PA-C Work Phone: Start: 09-18-2021 Lipid panel Jessica mireles PA-C Work Phone: Start: 09-18-2021 Lipid 1996 panel - S sofía or Plasma Jessica Clarke PA-C Work Phone: Start: 09-15-2021 Adult depression scr eening assessment Jessica Clarke PA-C Work Phone: Start: 09-05-2021 Diagnostic endoscopi c examination [facility] Work Phone: Start: 09-01-2021 [facility] Ant[facility] Work Phone: Start: 07-28-2020 Imm. administration COVID19 Ilia Pruffi Ilia Sanchezne Neel Work Phone: Start: 07-28-2020 SARS-CoV-2 vaccine, 0.5ml Ilia Pruffi Ilia Shaikh Work Phone: Start: 09-17-2012 Mammography Shaikh Ilan gimenez MD Work Phone: Ectopic (disorder) Eliazar Brooks Entire carpal canal (body structure) Eliazar Brooks Plan of Treatment Date Care Activity Detail Author Start: 09-22-2027 Screening for malign ant neoplasm of colon [facility] Start: 10-02-2026 Urine microalbumin profile [facility] Start: 09-18-2026 Lipid 1996 panel - S sofía or Plasma Lipid Screening [facility] Start: 09-18-2026 Lipid panel Lipid Screening [facility] Start: 09-18-2026 LIPID SCREEN LIPID SCREEN [facility] Start: 05-22-2026 Diabetes Screening Diabetes Screenin [facility] Start: 11-08-2025 LIPID SCREEN LIPID SCREEN [facility] Start: 05-18-2025 Medicare Annual Well ness (AWV) Medicare Annual Wellness (AWV) [facility] Start: 03-07-2025 Screening for malign ant neoplasm of cervix [facility] Start: 09-18-2024 DIABETES SCREEN DIABETES SCREEN [facility] Start: 09-18-2024 Diabetes Screening Diabetes Screenin g [facility] Start: 07-13-2024 End: 07-13-2024 Patient encounter procedure 07/13/2024 9:40 AM EST Office Visit [facility] [address] [facility] [address] [place] [address] Nasra Horta, [employer]UEPRINT BLOCKER [address], [facility] [address] [place] [address] [facility] Start: 06-25-2024 End: 06-25-2024 Patient encounter procedure 06/25/2024 8:40 AM EST Office Visit [facility] [address] [place] [phone] Kristin Gracia, BLUEPRINT BLOCKER [address] [place] [phone] [facility] Start: 06-17-2024 End: 06-17-2024 Patient encounter procedure 06/17/2024 9:30 AM EST Office Visit [facility] [address] [place] [phone] Sherrie Boone, KIRK [address] [place] [address] [facility] Comment on above: Arrived Start: 06-08-2024 End: 06-08-2024 Patient encounter procedure 06/08/2024 9:45 AM EST Office Visit [facility] [address] [place] [phone] Yahaira Vazquez PA [address] [place] [address] [facility] Start: 05-18-2024 End: 07-17-2025 MG Breast - bilateral Screening Bilateral screening mammogram Imaging Routine Encounter for screening mammogram for malignant neoplasm of breast Expected: 05/18/2024 (Approximate), Expires: 07/17/2025 [facility] Work Phone: Comment on above: Expected: 05/18/2024 (Approximate), Expires: 07/17/2025 Start: 05-18-2024 End: 05-18-2024 Patient encounter procedure [facility] Comment on above: LORENZO (obstructive sle ep apnea) (Primary Dx); Multiple sclerosis (CMS/HCC); Primary insomnia; Class 3 severe obesity without serious comorbidity with body mass index (BMI) of 45.0 to 49.9 in adult, unspecified obesity type (CMS/HCC); Anxiety and depression (CMS/HCC); Encounter for screening mammogram for malignant neoplasm of breast; Encounter for subsequent annual wellness visit (AWV) in Medicare patient Start: 05-11-2024 End: 05-11-2024 Patient encounter procedure 05/11/2024 9:00 AM EST Office Visit [facility] [address] [facility] [address] [place] [phone] Nasra Horta, BLUEPRINT BLOCKER [address], [address] [address] [facility] Start: 05-05-2024 End: 05-05-2024 Patient encounter procedure 05/05/2024 9:40 AM EST Office Visit [facility] [address] [place] [address] Kristin Gracia NP [address] [place] [phone] [facility] Start: 04-30-2024 Medicare Annual Well ness (AWV) Medicare Annual Wellness (AWV) [facility] Start: 04-29-2024 End: 04-29-2024 Patient encounter procedure 04/29/2024 9:40 AM EST Office Visit [facility] [address] [facility] [address] [place] [phone] Nasra Horta, BLUEPRINT BLOCKER [address], [address] [phone] [facility] Start: 04-27-2024 End: 04-27-2024 Patient encounter procedure [facility] Start: 04-10-2024 End: 04-10-2024 ambulatory 04/10/2024 8:30 AM EST Treatment [facility] [address] [facility] [address] [place] [address] Inderjit Pelletier PTA [facility] Start: 04-07-2024 End: 04-07-2024 ambulatory 04/07/2024 9:00 AM EST Treatment [facility] [address] [facility] [address] [place] [address] Aria Agrawal, PT [facility] Start: 04-02-2024 End: 04-02-2024 ambulatory 04/02/2024 8:30 AM EST Treatment [facility] [address] [facility] [address] [place] [address] Aria Agrawal, PT [facility] Start: 03-17-2024 End: 03-17-2024 ambulatory 03/17/2024 9:00 AM EDT Treatment [facility] [address] [facility] [address] [place] [address] Aria Agrawal, PT [facility] Start: 03-13-2024 End: 03-13-2024 ambulatory [facility] Comment on above: Arrived Start: 03-10-2024 End: 03-10-2024 ambulatory 03/10/2024 9:30 AM EDT Treatment [facility] [address] [facility] [address] [place] [address] Keli Major, HOUSE FURNISHINGS SUPERVISOR [facility] Start: 03-06-2024 End: 03-06-2024 ambulatory 03/06/2024 8:30 AM EDT Treatment [facility] [address] [facility] [address] [place] [address] Inderjit Pelletier, HOUSE FURNISHINGS SUPERVISOR [facility] Start: 03-05-2024 End: 03-05-2024 Patient encounter procedure [facility] Comment on above: Arrived Start: 03-03-2024 End: 03-03-2024 ambulatory [facility] Comment on above: Arrived Start: 02-28-2024 End: 02-28-2024 ambulatory [facility] Comment on above: S/P arthroscopy of l eft shoulder Start: 02-25-2024 End: 02-25-2024 Patient encounter procedure 02/25/2024 2:30 PM EDT Office Visit [facility] [address] [place] [address] Eliazar Brooks, DO [address] [place] [address] [facility] Start: 02-25-2024 End: 02-25-2024 Patient encounter procedure 02/25/2024 8:15 AM EDT Office Visit [facility] [address] [place] [phone] Eliazar Brooks, DO [address] [place] [address] [facility] Start: 02-10-2024 End: 02-10-2024 Patient encounter procedure [facility] Start: 02-03-2024 End: 02-03-2024 Patient encounter procedure [facility] Comment on above: Arrived Start: 01-31-2024 End: 01-29-2025 Urinalysis complete panel - Urine Urinalysis with reflex microscopic Lab Routine Pre-op testing Expected: 01/31/2024, Expires: 01/29/2025 [facility] Work Phone: Comment on above: Expected: 01/31/2024 , Expires: 01/29/2025 Start: 01-30-2024 End: 01-30-2024 Patient encounter procedure [facility] Comment on above: Rotator cuff impinge ment syndrome of left shoulder (Primary Dx) Start: 01-23-2024 End: 01-23-2024 Patient encounter procedure 01/23/2024 12:00 PM EDT Procedure Visit [facility] [address] [place] [address] [place] [phone] [facility] Start: 01-19-2024 Covid-19 Vaccine ( season) Covid-19 Vaccine ( season) [facility] Start: 01-19-2024 Influenza vaccination Influenza Vacc ine (#1) [facility] Start: 12-10-2023 End: 12-10-2023 Patient encounter procedure 12/10/2023 10:30 AM EDT Office Visit [address] [address] Jessica Clarke PA-C [address] [place] [address] follow up [facility] Comment on above: follow up Start: 11-27-2023 End: 02-26-2024 25-hydroxyvitamin D3 [Mass/volume] in Serum or Plasma VITAMIN D 25 HYDROXY Lab Routine Vitamin D deficiency Expected: 11/27/2023, Expires: 02/26/2024 [facility] Comment on above: Expected: 11/27/2023 , Expires: 02/26/2024 Start: 11-27-2023 End: 02-26-2024 CBC W Auto Differential panel - Blood COMPLETE BLOOD COUNT AND DIFFERENTIAL Lab Routine Multiple sclerosis (HCC) Expected: 11/27/2023, Expires: 02/26/2024 [facility] Work Phone: Comment on above: Expected: 11/27/2023 , Expires: 02/26/2024 Start: 11-27-2023 End: 02-26-2024 Comprehensive metabolic 2000 panel - Serum or Plasma COMPREHENSIVE METABOLIC PANEL Lab Routine Multiple sclerosis ([facility]) Expected: 11/27/2023, Expires: 02/26/2024 [facility] Comment on above: Expected: 11/27/2023 , Expires: 02/26/2024 Start: 11-27-2023 End: 02-26-2024 IgG [Mass/volume] in Serum or Plasma IMMUNOGLOBULIN G Lab Routine Multiple sclerosis ([facility]) Expected: 11/27/2023, Expires: 02/26/2024 [facility] Comment on above: Expected: 11/27/2023 , Expires: 02/26/2024 Start: 11-27-2023 End: 02-26-2024 IgM [Mass/volume] in Serum or Plasma IMMUNOGLOBULIN M Lab Routine Multiple sclerosis ([facility]) Expected: 11/27/2023, Expires: 02/26/2024 [facility] Comment on above: Expected: 11/27/2023 , Expires: 02/26/2024 Start: 11-27-2023 End: 11-27-2023 Patient encounter procedure 11/27/2023 12:00 PM EDT Appointment Radiology [address] [place] [address] Cervical Spine MRI Radiology Comment on above: Cervical Spine MRI Start: 11-09-2023 DIABETES SCREEN DIABETES SCREEN [facility] Start: 09-05-2023 End: 09-05-2023 Patient encounter procedure 09/05/2023 8:40 AM EDT Office Visit [facility] [address] [place] [address] Kristin Gracia NP [address] [place] [phone] [facility] Start: 07-25-2023 End: 06-26-2024 Pulmonary function testing Pulmonary function testing Imaging Routine COPD with exacerbation (CMS/HCC) Expected: 07/25/2023, Expires: 06/26/2024 [facility] Work Phone: Comment on above: Expected: 07/25/2023 , Expires: 06/26/2024 Start: 06-26-2023 End: 06-26-2024 XR Chest 2 Views XR chest 2 views Imaging Routine COPD with exacerbation (CMS/HCC) Expected: 06/26/2023, Expires: 06/26/2024 [facility] Comment on above: Expected: 06/26/2023 , Expires: 06/26/2024 Start: 06-26-2023 End: 06-26-2023 Patient encounter procedure 06/26/2023 11:30 AM EST Office Visit [facility] [address] [place] [phone] Shaikh Lunsford MD [address] [place] [address] Arrived [facility] Comment on above: Arrived Start: 05-20-2023 Behavioral Health Screening Behavioral Health Screening [facility] Start: 05-20-2023 Depression Assessment Depression Ass essment [facility] Start: 01-18-2023 Covid-19 Vaccine ( season) Covid-19 Vaccine ( season) [facility] Start: 01-18-2023 Influenza vaccination [place] Start: 09-15-2022 Adult depression screening assessment DEPRESSION SCREENING [facility] Start: 08-30-2022 End: 10-30-2022 CBC W Auto Differential panel - Blood CBC + DIFF Lab Routine Multiple sclerosis, relapsing-remitting (HCC) Expected: 08/30/2022, Expires: 10/30/2022 [facility] Work Phone: Comment on above: Expected: 08/30/2022 , Expires: 10/30/2022 Start: 08-30-2022 End: 10-30-2022 Comprehensive metabolic 2000 panel - Serum or Plasma COMP METABOLIC PANEL Lab Routine Multiple sclerosis, relapsing-remitting (HCC) Expected: 08/30/2022, Expires: 10/30/2022 [facility] Work Phone: Comment on above: Expected: 08/30/2022 , Expires: 10/30/2022 Start: 08-30-2022 End: 10-30-2022 IgG [Mass/volume] in Serum or Plasma IGG Lab Routine Multiple sclerosis, relapsing-remitting (HCC) Expected: 08/30/2022, Expires: 10/30/2022 [facility] Work Phone: Comment on above: Expected: 08/30/2022 , Expires: 10/30/2022 Start: 08-30-2022 End: 10-30-2022 IgM [Mass/volume] in Serum or Plasma IGM Lab Routine Multiple sclerosis, relapsing-remitting (HCC) Expected: 08/30/2022, Expires: 10/30/2022 [facility] Work Phone: Comment on above: Expected: 08/30/2022 , Expires: 10/30/2022 Start: 05-20-2022 DEPRESSION ASSESSMENT DEPRESSION ASS ESSMENT [facility] Start: 03-22-2022 End: 05-22-2022 CBC W Auto Differential panel - Blood CBC + DIFF Lab Routine Multiple sclerosis, relapsing-remitting (HCC) Expected: 03/22/2022, Expires: 05/22/2022 [facility] Work Phone: Comment on above: Expected: 03/22/2022 , Expires: 05/22/2022 Start: 03-22-2022 End: 05-22-2022 CD19 ABSOLUTE COUNT CD19 ABSOLUTE COUNT Lab Routine Multiple sclerosis ([facility]) Expected: 03/22/2022, Expires: 05/22/2022 [facility] Work Phone: Comment on above: Expected: 03/22/2022 , Expires: 05/22/2022 Start: 03-22-2022 End: 05-22-2022 Comprehensive metabolic 2000 panel - Serum or Plasma COMP METABOLIC PANEL Lab Routine Multiple sclerosis, relapsing-remitting ([facility]) Expected: 03/22/2022, Expires: 05/22/2022 [facility] Work Phone: Comment on above: Expected: 03/22/2022 , Expires: 05/22/2022 Start: 03-22-2022 End: 05-22-2022 IgG [Mass/volume] in Serum or Plasma IGG Lab Routine Multiple sclerosis, relapsing-remitting ([facility]) Expected: 03/22/2022, Expires: 05/22/2022 [facility] Work Phone: Comment on above: Expected: 03/22/2022 , Expires: 05/22/2022 Start: 03-22-2022 End: 05-22-2022 IgM [Mass/volume] in Serum or Plasma IGM Lab Routine Multiple sclerosis, relapsing-remitting ([facility]) Expected: 03/22/2022, Expires: 05/22/2022 [facility] Work Phone: Comment on above: Expected: 03/22/2022 , Expires: 05/22/2022 Start: 01-18-2022 Influenza vaccination [facility] Start: 11-14-2021 End: 01-14-2022 JCV ANTIBODY & INDEX WITH REFLEX [facility] Work Phone: Comment on above: Expected: 11/14/2021 , Expires: 01/14/2022 Start: 09-18-2021 End: 07-02-2022 CD19 ABSOLUTE COUNT [facility] Work Phone: Comment on above: Expected: 09/18/2021 , Expires: 11/18/2021 Start: 09-16-2021 COVID-19 VACCINE (3 - Booster for Yeni series) COVID-19 VACCINE (3 - Booster for Yeni series) [facility] Start: 09-15-2021 End: 11-15-2021 CBC W Auto Differential panel - Blood CBC + DIFF Lab Routine Multiple sclerosis, relapsing-remitting (HCC) Expected: 09/15/2021, Expires: 11/15/2021 [facility] Work Phone: Comment on above: Expected: 09/15/2021 , Expires: 11/15/2021 Start: 09-15-2021 End: 11-15-2021 Comprehensive metabolic 2000 panel - Serum or Plasma COMP METABOLIC PANEL Lab Routine Multiple sclerosis, relapsing-remitting (HCC) Expected: 09/15/2021, Expires: 11/15/2021 [facility] Work Phone: Comment on above: Expected: 09/15/2021 , Expires: 11/15/2021 Start: 09-15-2021 End: 11-15-2021 IMMUNOGLOBULINS KESHAWN IMMUNOGLOBULINS KESHAWN Lab Routine Multiple sclerosis, relapsing-remitting (HCC) Expected: 09/15/2021, Expires: 11/15/2021 [facility] Work Phone: Comment on above: Expected: 09/15/2021 , Expires: 11/15/2021 Start: 09-15-2021 End: 11-15-2021 LIPID PANEL BASIC LIPID PANEL BASIC Lab Routine Multiple sclerosis, relapsing-remitting (HCC) Expected: 09/15/2021, Expires: 11/15/2021 [facility] Work Phone: Comment on above: Expected: 09/15/2021 , Expires: 11/15/2021 Start: 07-13-2021 COVID-19 VACCINE (3 - Booster for Yeni series) COVID-19 VACCINE (3 - Booster for Yeni series) [facility] Start: 05-20-2021 DEPRESSION ASSESSMENT DEPRESSION ASS ESSMENT [facility] Start: 2018 Influenza vaccination LUNG CANCER SC REENING [facility] Start: 2018 Pneumococcal Vaccine : 50+ (2 of 2 - PCV) Pneumococcal Vaccine: 50+ (2 of 2 - PCV) [facility] Start: 2018 Screening for malign ant neoplasm of lung Lung Cancer Screening [facility] Start: 2018 SHINGRIX VACCINE (1 of 2) STAFFORD GRIX VACCINE (1 of 2) [facility] Start: 09-17-2013 Screening for malign ant neoplasm of breast Mammogram [facility] Start: 2013 COLOGUARD (FIT-DNA) COLOGUARD (FIT-D NA) [facility] Start: 2013 Colonoscopy COLONOSCOPY [facility] Start: 2013 COLORECTAL CANCER SCREENING COLORECTAL CANCER SCREENING [facility] Start: [address] COLONOGRAPHY [facility] Start: 2013 FECAL OCCULT BLOOD FECAL OCCULT BLOO D [facility] Start: 2013 Screening for malign ant neoplasm of colon [facility] Start: 2013 SIGMOIDOSCOPY SIGMOIDOSCOPY [facility] Start: 2008 Mammography [facility] Start: 2008 Screening for malign ant neoplasm of breast Mammogram Screening [facility] Start: 1998 HPV TESTING HPV TESTING [facility] Start: 1998 Screening for malign ant neoplasm of cervix [facility] Start: 1989 PAP TESTING PAP TESTING [facility] Start: 1989 Screening for malign ant neoplasm of cervix [facility] Start: 1987 Hepatitis B Vaccine (1 of 3 - 19+ 3-dose series) Hepatitis B Vaccine (1 of 3 - 19+ 3-dose series) [facility] Start: 1986 Anxiety Screening Anxiety Screening [facility] Start: 1986 Depression Screening Depression Scre ening [facility] Start: 1986 HIV SCREENING HIV SCREENING [facility] Start: 1986 HIV screening HIV Screening [facility] Start: 1968 HEPATITIS B (1 of 3 - 3-dose series) HEPATITIS B (1 of 3 - 3-dose series) [facility] Start: 1968 Hepatitis B Vaccine (1 of 3 - 3-dose series) Hepatitis B Vaccine (1 of 3 - 3-dose series) [facility] Start: 1968 Screening for malign ant neoplasm of colon [facility] End: 09-05-2024 EMG(NEURO/NI) EMG(NEURO/NI) EMG Routine Left arm weakness 1 Occurrences starting 09/06/2023 until 09/05/2024 [facility] Work Phone: Comment on above: 1 Occurrences starti ng 09/06/2023 until 09/05/2024 IMMUNOGLOBULINS KESHAWN IMMUNOGLOBUL INS KESHAWN Lab Routine Multiple sclerosis, relapsing-remitting (HCC) 09/18/2021 8:36 AM EDT [facility] Work Phone: End: 11-16-2023 ALIYA SCREENING ALIYA SCREENING Radiology Routine Encounter for screening mammogram for breast cancer 1 Occurrences starting 10/17/2022 until 11/16/2023 [facility] Work Phone: Comment on above: 1 Occurrences starti ng 10/17/2022 until 11/16/2023 End: 08-14-2024 MR Brain WO and W contrast IV MRI BRAIN WO/W IVCON Radiology Routine Multiple sclerosis (HCC) 1 Occurrences starting 07/16/2023 until 08/14/2024 [facility] Work Phone: Comment on above: 1 Occurrences starti ng 07/16/2023 until 08/14/2024 End: 10-05-2024 MR Cervical spine WO contrast MRI CERVICAL SPINE WO IVCON Radiology Routine Left arm weakness 1 Occurrences starting 09/06/2023 until 10/05/2024 [facility] Work Phone: Comment on above: 1 Occurrences starti ng 09/06/2023 until 10/05/2024 End: 10-15-2022 Mri brain brain stem w/o w/contrast material MRI BRAIN WO/W IVCON Radiology Routine Multiple sclerosis, relapsing-remitting (HCC) 1 Occurrences starting 09/15/2021 until 10/15/2022 [facility] Work Phone: Comment on above: 1 Occurrences starti ng 09/15/2021 until 10/15/2022 End: 12-14-2022 Mri brain brain stem w/o w/contrast material MRI BRAIN WO/W IVCON Radiology Routine Multiple sclerosis, relapsing-remitting (HCC) 1 Occurrences starting 11/14/2021 until 12/14/2022 [facility] Work Phone: Comment on above: 1 Occurrences starti ng 11/14/2021 until 12/14/2022 End: 09-29-2023 Mri brain brain stem w/o w/contrast material MRI BRAIN WO/W IVCON Radiology Routine Multiple sclerosis, relapsing-remitting (HCC) 1 Occurrences starting 08/30/2022 until 09/29/2023 [facility] Work Phone: Comment on above: 1 Occurrences starti ng 08/30/2022 until 09/29/2023 End: 09-29-2023 Mri spinal canal cervical w/o & w/contr matrl MRI CERVICAL SPINE WO/W IVCON Radiology Routine Multiple sclerosis, relapsing-remitting (HCC) 1 Occurrences starting 08/30/2022 until 09/29/2023 [facility] Work Phone: Comment on above: 1 Occurrences starti ng 08/30/2022 until 09/29/2023 OT PLAN OF CARE CERTIFICATION OT PLAN OF CARE CERTIFICATION Procedures Routine Multiple sclerosis, relapsing-remitting (HCC) Ordered: 01/16/2022 [facility] Work Phone: Comment on above: Ordered: 01/16/2022 Patient Education Hemorrhoids (D C) Diverticulosis (DC) Colon Polypectomy (DC) [facility] Work Phone: End: 12-15-2022 Screening mammography bi 2-view breast inc cad ALIYA SCREENING Radiology Routine Encounter for screening mammogram for breast cancer 1 Occurrences starting 11/15/2021 until 12/15/2022 [facility] Work Phone: Comment on above: 1 Occurrences starti ng 11/15/2021 until 12/15/2022 End: 10-05-2024 XR CERV OTHER 4V AP/LAT/FLX/EXT XR CERV OTHER 4V AP/LAT/FLX/EXT Radiology Routine Left arm weakness 1 Occurrences starting 09/06/2023 until 10/05/2024 [facility] Work Phone: Comment on above: 1 Occurrences starti ng 09/06/2023 until 10/05/2024 [facility] Immunizations Immunization Date Immunization Notes Care Provider [facility] 03-05-2024 Influenza, injectabl e, Madin [place] Canine Kidney, preservative free, quadrivalent Kristin Gracia [employer]UE[employer]ER Work Phone: [facility] 05-02-2023 influenza, intraderm al, quadrivalent, preservative free, injectable Shaikh Jonn BENITEZ Work Phone: [facility] 05-02-2023 influenza virus vacc ine, unspecified formulation Sarthak Escobar MD, PhD Work Phone: [facility] 04-30-2023 influenza, seasonal, injectable Shaikh Jonn BENITEZ Work Phone: [facility] 03-07-2022 influenza, high dose seasonal, preservative-free Shaikh Jonn BENITEZ Work Phone: [facility] 03-07-2022 influenza virus vacc ine, unspecified formulation Jessica Clarke PA-C Work Phone: [facility] 05-18-2021 COVID-19 [id number] (Moderna[facility] Work Phone: [facility] 07-28-2020 Ilia and Ilia COVID 19 Vaccine Jaleesa Lara [facility] Comment on above: Note: Patient tolera jonah well. No signs or symptoms of adverse reactions. Patient waited a minimum of 15 minutes. 04-08-2020 influenza, injectabl e, quadrivalent, preservative free Jessica Clarke PA-C Work Phone: [facility] 03-20-2019 influenza, injectabl e, quadrivalent, preservative free Jessica Clarke PA-C Work Phone: [facility] 06-05-2018 influenza, injectabl e, quadrivalent, preservative free Jessica Young PA-C Work Phone: [facility] 02-27-2017 influenza, injectabl e, quadrivalent, preservative free Jessica Young PA-C Work Phone: [facility] 10-02-2016 pneumococcal polysaccharide vaccine, 23 valent Jessica Young PA-C Work Phone: [facility] 10-02-2016 tetanus toxoid, redu maury diphtheria toxoid, and acellular pertussis vaccine, adsorbed Jessica Young PA-C Work Phone: [facility] 04-03-2016 influenza, injectabl e, quadrivalent, preservative free Jessica Young PA-C Work Phone: [facility] 03-19-2015 influenza, high dose seasonal, preservative-free Jessica Young PA-C Work Phone: [facility] 03-19-2015 influenza, injectabl e, quadrivalent, preservative free Eliazar Brooks DO Work Phone: [facility] 04-27-2014 influenza, high dose seasonal, preservative-free Jessica Young PA-C Work Phone: [facility] 04-27-2014 influenza, injectabl e, quadrivalent, preservative free Eliazar Brooks DO Work Phone: [facility] Healthcare Payers Date Payer Category Payer Medicare [id number] 2023 Medicare (Managed Care) [facility] MEDICARE [id number] 2023 Medicare [id number]. [id number] 2023 Medicare [id number] 2020 Medicaid [facility] MEDICAID [facility] MEDICAID [id number] 2020-Present [phone] [address] [place] [address] Medicaid [id number] 2020 Medicaid [id number]. 1.13.159.2. [id number] 1968 Unknown [id number] 2.16.840.1.035032.3.579.2. 593 1968 Unknown [id number] 2.16.840.1.667382.3.579.2. 593 1968 Unknown [id number] 2.16.840.1.481571.3.579.2. 593 1968 Unknown [id number] 2.16.840.1.662569.3.579.2. 593 1968 Unknown [id number] 2.16.840.1.761561.3.579.2. 593 1968 Unknown [id number] 2.16.840.1.813072.3.579.2. 727 1968 Unknown [id number] 2.16.840.1.371000.3.579.2. 727 1968 Unknown [id number] 2.16.840.1.084603.3.579.2. 727 1968 Unknown [id number] 2.16.840.1.332107.3.579.2. 1259 1968 Unknown [id number] 2.16.840.1.792158.3.579.2. 1259 1968 Unknown [id number] 2.16.840.1.758400.3.579.2. 1258 1968 Unknown [id number] 2.16.840.1.189619.3.579.2. 1258 1968 Unknown [id number] 2.16.840.1.128221.3.579.2. 1258 1968 Unknown [id number] 2.16.840.1.769488.3.579.2. 1258 1968 Unknown [id number] 2.16.840.1.556012.3.579.2. 1258 1968 Unknown [id number] 2.16.840.1.783006.3.579.2. 1258 1968 Unknown [id number] 2.16.840.1.497106.3.579.2. 1258 1968 Unknown [id number] 2.16.840.1.656382.3.579.2. 1258 1968 Unknown [id number] 2.16.840.1.924352.3.579.2. 1258 1968 Unknown [id number] 2.16.840.1.313612.3.579.2. 1258 1968 Unknown [id number] 2.16.840.1.633424.3.579.2. 1258 1968 Unknown [id number] 2.16.840.1.834484.3.579.2. 1258 1968 Unknown [id number] 2.16.840.1.461887.3.579.2. 1258 1968 Unknown [id number] 2.16.840.1.182841.3.579.2. 1258 1968 Unknown [id number] 2.16.840.1.046511.3.579.2. 1258 1968 Unknown [id number] 2.16.840.1.794941.3.579.2. 1258 1968 Unknown [id number] 2.16.840.1.977352.3.579.2. 1258 1968 Unknown [id number] 2.16.840.1.512623.3.579.2. 1258 1968 Unknown [id number] 2.16.840.1.180742.3.579.2. 1258 1968 Unknown [id number] 2.16.840.1.814861.3.579.2. 1258 1968 Unknown [id number] 2.16.840.1.051504.3.579.2. 1258 1968 Unknown [id number] 2.16.840.1.264486.3.579.2. 1258 1968 Unknown [id number] 2.16.840.1.950659.3.579.2. 1258 1968 Unknown [id number] 2.16.840.1.906681.3.579.2. 1258 1968 Unknown [id number] 2.16.840.1.693386.3.579.2. 1258 1968 Unknown [id number] 2.16.840.1.116167.3.579.2. 9 1959 Private Health Insurance [id number] 1959 Unknown [id number] Self-pay [id number] 2.16.840.1.373380.3.140.1. 79530.5.4 Self-pay Self Pay [id number] Unknown Self Pay [id number] Social History Date Type Detail Facility Tobacco smoking status Unknown if ever sm oked [facility] Work Phone: Start: 1970 Sex Assigned At Female F [facility] Start: 09-05-2021 End: 11-13-2023 Tobacco smoking status NHIS Ex-smoker (finding) [facility] Start: 12-13-1996 End: 12-13-2016 History of tobacco use Current smoker [facility] Start: 12-13-1996 End: 12-13-2016 History of tobacco use Cigarette Smoker [facility] Start: 12-06-2017 End: 06-04-2023 Cigarettes smoked current (pack per day) - Reported 1 [facility] Start: 12-06-2017 End: 11-13-2023 Tobacco use and exposure Smokeless tobacco non-user [facility] Start: 11-01-2020 End: 07-10-2023 Alcohol intake Current drinker of alcohol (finding) [facility] Start: 08-02-2020 History SDOH Alcohol Frequency 2 [facility] Start: 08-02-2020 History SDOH Alcohol Std Drinks 3 [facility] Start: 08-08-2012 History SDOH Alcohol Comment rare [facility] Start: 08-02-2020 History SDOH Social Connections Get Together 1 [facility] Start: 08-02-2020 History SDOH Physica l Activity DPW 0 [facility] Start: 08-02-2020 History SDOH Stress 5 [facility] Start: 08-02-2020 History SDOH Financial 4 [facility] Start: 08-02-2020 Education 8 [facility] Start: 08-08-2012 End: 03-22-2022 Tobacco Comment plans to try to quit at some point but not ready. [facility] Start: 09-08-2021 End: 03-22-2022 Exposure to SARS-CoV-2 (event) Not sure [facility] Start: 08-02-2020 End: 06-04-2023 Sex Assigned At [facility] Do you belong to any clubs or organizations such as [employer]beterian groups, unions, fraternal or athletic groups, or school groups? No [facility] Are you now , , , , never or living with a partner? [facility] How often to you hav e a drink containing alcohol? Monthly or less [facility] How many standard dr inks containing alcohol do you have on a typical day? 5 or 6 [facility] How often do you hav e 6 or more drinks on 1 occasion? Less than monthly [facility] How hard is it for y ou to pay for the very basics like food, housing, medical care, and heating Not very hard [facility] Start: 06-04-2023 Adult Depression Screening Assessment 5 [facility] Do you feel stress - tense, restless, nervous, or anxious, or unable to sleep at night because your mind is troubled all the time - these days [OSQ] Very much [facility] (I/We) worried wheth er (my/our) food would run out before (I/we) got money to buy more. Sometimes true [facility] Start: 08-02-2020 Gender identity Identifies as female gender (finding) [facility] Start: 08-02-2020 Sexual orientation Heterosexual (fin ever) [facility] Start: 06-05-2023 End: 05-18-2024 Alcohol intake Ex-drinker (finding) [facility] How many standard dr inks containing alcohol do you have on a typical day? 3 or 4 [facility] How hard is it for y ou to pay for the very basics like food, housing, medical care, and heating Very hard [facility] Do you feel stress - tense, restless, nervous, or anxious, or unable to sleep at night because your mind is troubled all the time - these days [OSQ] Only a little [facility] Healthcare (I/We) worried wheth er (my/our) food would run out before (I/we) got money to buy more. Often true [facility] In the past 12 month s, was there a time when you were not able to pay the mortgage or rent on time? Yes [facility] Start: 04-30-2023 Alcohol Comment tea and coffee 1-2 cups per day [facility] History of tobacco use Passive smoker [facility] Tobacco [facility] Comment on above: States smokes 1 PPD Tobacco smoking status No Smokin g Status Entered [facility] Medical Equipment Procedure Code Equipment Code Equipment Origin al Text Equipment Identifier Dates SHOULDER ARTHROS COPY W/ POSSIBLE REPAIR Zbigniew Eliazar SARGENT [place] 02/10/24 Non Biological Shoulder L [id number] FDA Start: 02-10-2024 Goals Date Patient Goal Desired Activity /State Clinical Notes 08-14-2021 to 06-17-2024 Sherrie Boone NP - 06/17/2024 9:57 AM Khoa Boone NP - 06/17/2024 9:30 AM ESTPatient InstructionsKristin Gracia NP - 05/18/2024 9:47 AM ESTPatient InstructionsPatient Instructions Note Date & Type Note Facility 06-17-2024 History of Presen t illness Narrative Associated Problem(s): Acute non-recurrent frontal sinusitis Sinus congestion X2 weeks Ear ache Has tried OTC regimens with no relief. Will treat with Doxycycline x7 days, Flonase and Zyrtec. Return to office if symptoms worsen or do not improve. Images from the original note were not included. Subjective Patient ID: Yamilka Vasquez is a 54 y.o. female who presents for Sinusitis. Sinusitis Associated symptoms include congestion and sinus pressure. Pertinent negatives include no chills, ear pain, shortness of breath or sore throat. Sinus congestion X2 weeks Ear ache Has tried OTC regimens with no relief. Denies: Headache Cough Shortness of breath Sore throat N/V/D Dizziness Chest pain Fever Night sweats Review of Systems Constitutional: Negative for activity change, appetite change, chills, fatigue and night sweats. HENT: Positive for congestion, rhinorrhea and sinus pressure. Negative for ear pain, sinus pain, sore throat, trouble swallowing and voice change. Eyes: Negative for discharge, redness, itching and visual disturbance. Respiratory: Negative for chest tightness, shortness of breath and wheezing. Gastrointestinal: Negative for constipation and diarrhea. Neurological: Negative for dizziness and light-headedness. Objective Physical Exam Vitals reviewed. Constitutional: Appearance: Normal appearance. She is normal weight. HENT: Right Ear: Tympanic membrane normal. Left Ear: Tympanic membrane normal. Nose: Congestion and rhinorrhea present. Mouth/Throat: Mouth: Mucous membranes are moist. Pharynx: Oropharynx is clear. Posterior oropharyngeal erythema present. Eyes: Pupils: Pupils are equal, round, and reactive to light. Cardiovascular: Rate and Rhythm: Normal rate and regular rhythm. Pulses: Normal pulses. Heart sounds: Normal heart sounds. Pulmonary: Effort: Pulmonary effort is normal. Breath sounds: Normal breath sounds. Abdominal: General: Abdomen is flat. Bowel sounds are normal. Palpations: Abdomen is soft. Skin: Capillary Refill: Capillary refill takes less than 2 seconds. Neurological: Mental Status: She is alert and oriented to person, place, and time. Assessment/Plan Problem List Items Addressed This Visit Acute non-recurrent frontal sinusitis - Primary Sinus congestion X2 weeks Ear ache Has tried OTC regimens with no relief. Will treat with Doxycycline x7 days, Flonase and Zyrtec. Return to office if symptoms worsen or do not improve. Relevant Medications doxycycline (Vibramycin) 100 MG capsule fluticasone (Flonase) 50 MCG/ACT nasal spray cetirizine (ZyrTEC) 10 MG tablet documented in this encounter [facility] 06-17-2024 Instructions Sherrie Boone NP - 06/17/2024 9:30 AM EST Continue to rest, drink plenty of fluids, and eat a well-balance diet. Resume normal activity. AVOID anything strenuous until you are feeling better. Treatment: Start and finish antibiotic as directed. Nasal saline spray 2-3 times Zyrtec allergy medication once daily. Flonase nasal spray 1-2 squirts in each nostril at night. Tylenol for fever and body aches. WORSENING SYMPTOMS, CHEST PAIN, OR SHORTNESS OF BREATH, GO TO THE NEAREST EMERGENCY DEPARTMENT. documented in this encounter [facility] 05-18-2024 History of Presen t illness Narrative Associated Problem(s): Generalized anxiety disorder with panic attacks (CMS/HCC) Lexapro at 20mg anhedonia, and at 10mg not helping Will add buspar 5mg BID Add abilify at 5mg Fu in 4 weeks Associated Problem(s): Depression (CMS/HCC) Husbands over the last few months, worsened her symptoms Lexapro higher dose causes anhedonia, lower dose no effective Add abilify at 5mg daily Add buspar 5mg BID Fu in 4 weeks PHQ 9=11, MELISSA 7 =5 Pt can't smell or taste in the last ten days, however she did take a covid test yesterday and was neg. Pt states she has no other symptoms or any sickness. Pt states she has been to the hospital for grief counseling and states that it just is not her people. She has been taking the lexapro but only 10mg she states that the 20mg was making her mean. Pt would like to talk about getting panic attacks at least twice a day. Images from the original note were not included. Yamilka Vasquez is a 53 y.o. female presents with chief complaint of Medicare Annual Wellness Visit Initial HPI: Diet: variety Activity: as chronic conditions allow Mental Health Concerns: depression/anxiety Falls in the last year:no Driving: not currently driving, license is Do you pay your bills: yes Any hearing problems: no Any Vision problems: no Any Hospitalizations in the last year: none Specialist: otho, neuro HCPOA/Living Will: none Concerns: mental health Depression Visit Type: follow-up Patient presents with the following symptoms: anhedonia, depressed mood, fatigue, insomnia, irritability, nervousness/anxiety and panic. Patient is not experiencing: excessive worry, palpitations, shortness of breath, suicidal ideas, suicidal planning and thoughts of . Frequency of symptoms: most days Severity: moderate Compliance with medications: 76-100% Anxiety Presents for follow-up visit. Symptoms include depressed mood, insomnia, irritability, nervous/anxious behavior and panic. Patient reports no chest pain, dizziness, excessive worry, nausea, palpitations, shortness of breath or suicidal ideas. Symptoms occur most days. The severity of symptoms is moderate. The quality of sleep is fair. Compliance with medications is 76-100%. SUBJECTIVE: MEDICATIONS: Current Outpatient Medications Medication Instructions acetaminophen (Tylenol) 500 MG tablet Take by mouth albuterol HFA (Ventolin HFA) 90 mcg/act inhaler 2 puffs, Inhalation, Every 6 hours PRN ARIPiprazole (ABILIFY) 5 mg, Oral, Daily busPIRone (BUSPAR) 5 mg, Oral, 2 times daily escitalopram (LEXAPRO) 10 mg, Oral, Daily naproxen (Naprosyn) 250 MG tablet Take by mouth ocrelizumab (Ocrevus) 300 MG/10ML solution 10 mL, As needed ALLERGIES: No Known Allergies REVIEW OF SYMPTOMS: Review of Systems Constitutional: Positive for irritability. Negative for appetite change, chills and fever. HENT: Negative for congestion, ear pain and sore throat. Eyes: Negative for pain, discharge, redness and visual disturbance. Respiratory: Negative for cough, shortness of breath and wheezing. Cardiovascular: Negative for chest pain, palpitations and leg swelling. Gastrointestinal: Negative for abdominal pain, blood in stool, constipation, diarrhea, nausea and vomiting. Genitourinary: Negative for difficulty urinating, dysuria and frequency. Musculoskeletal: Positive for arthralgias. Negative for back pain, joint swelling and myalgias. Skin: Negative for rash and wound. Neurological: Negative for dizziness, tremors, seizures, syncope and headaches. Psychiatric/Behavioral: Positive for depression. Negative for behavioral problems, self-injury and suicidal ideas. The patient is nervous/anxious and has insomnia. Depression Hematological: Does not bruise/bleed easily. Endocrine: Negative for polydipsia, polyphagia and polyuria. Allergic/Immunologic: Negative for environmental allergies and food allergies. PAST MEDICAL HISTORY Past Medical History: Diagnosis Date Abnormal CBC 07/30/2023 Anxiety and depression (CMS/[facility]) Carpal tunnel syndrome 2002 Chronic diarrhea Chronic shoulder pain 05/01/2023 Class 3 severe obesity without serious comorbidity with body mass index (BMI) of 45.0 to 49.9 in adult ([facility]) 04/30/2023 Constipation Depression ([facility]) Hot flashes 07/30/2023 Hyperlipidemia, acquired ([facility]) 07/30/2023 Hypertension ([facility]) Knee pain, left anterior Major depression ([facility]) Morbid obesity with BMI of 40.0-44.9, adult ([facility]) Multiple sclerosis ([facility]) Night sweats 07/30/2023 LORENZO (obstructive sleep apnea) 07/30/2023 Pain of left middle finger Primary insomnia Rash Rectal burning Right knee pain, unspecified chronicity Sinusitis Stroke ([facility]) 07/30/2023 Urinary incontinence in female Vaginal discharge Vitamin D deficiency Past Surgical History: Procedure Laterality Date CARPAL TUNNEL RELEASE Right 2004 ECTOPIC SURGERY HYSTERECTOMY 1991 SHOULDER SURGERY Left 02/10/2024 Arthroscopy, RCR @ [facility] w/ MTP TUBAL LIGATION 1990 family history includes Aneurysm in her mother; Arthritis in her mother; Cancer in her father; Hypertension in her brother, mother, paternal grandfather, and sister; Stroke in her sister. OBJECTIVE: Visit Vitals BP 144/90 (BP Location: Left arm, Patient Position: Sitting, BP Cuff Size: Adult long) Pulse 81 Temp 98.1 F (Temporal) Resp 19 Ht 5' 5 Wt 282 lb SpO2 95% BMI 46.93 kg/m OB Status Unknown Smoking Status Former BSA 2.42 m Physical Exam Vitals and nursing note reviewed. Constitutional: General: She is not in acute distress. Appearance: Normal appearance. HENT: Head: Normocephalic and atraumatic. Right Ear: External ear normal. Left Ear: External ear normal. Nose: Nose normal. Mouth/Throat: Mouth: Mucous membranes are moist. Eyes: Extraocular Movements: Extraocular movements intact. Conjunctiva/sclera: Conjunctivae normal. Cardiovascular: Rate and Rhythm: Normal rate and regular rhythm. Pulses: Normal pulses. Heart sounds: Normal heart sounds. Pulmonary: Effort: Pulmonary effort is normal. Breath sounds: Normal breath sounds. Abdominal: General: Bowel sounds are normal. There is no distension. Palpations: Abdomen is soft. There is no mass. Tenderness: There is no abdominal tenderness. Musculoskeletal: General: Normal range of motion. Cervical back: Normal range of motion and neck supple. Skin: General: Skin is warm and dry. Capillary Refill: Capillary refill takes 2 to 3 seconds. Findings: No rash. Neurological: General: No focal deficit present. Mental Status: She is alert and oriented to person, place, and time. Psychiatric: Mood and Affect: Mood normal. Behavior: Behavior normal. Thought Content: Thought content normal. Judgment: Judgment normal. ASSESSMENT AND PLAN: Follow up in about 4 weeks (around 06/15/2024) for Recheck. Problem List Items Addressed This Visit Class 3 severe obesity without serious comorbidity with body mass index (BMI) of 45.0 to 49.9 in adult ([facility]) Discussed with patient their BMI (actual, verses recommended). We have also discussed lifestyle modifications: attempts to perform physical activity as chronic conditions allow, also to monitor dietary intake: increasing protein/fruits/veggies and lowering carb intake (unless contraindicated). Limit sodas, juices, and sugary drinks. Also discussed oral medications that can be utilized for weight loss, as well as surgical options for weight loss. It ws discussed at previous appt regarding checking with Neurology to see if ok for her to trial wegovy, no contra indications for this med otherwise Primary insomnia Continue trazodone doing well when takes meds sleeps 7 hours Multiple sclerosis ([facility]) Continue with neurology and treatment Encounter for screening mammogram for malignant neoplasm of breast Relevant Orders Bilateral screening mammogram Depression ([facility]) Husbands over the last few months, worsened her symptoms Lexapro higher dose causes anhedonia, lower dose no effective Add abilify at 5mg daily Add buspar 5mg BID Fu in 4 weeks PHQ 9=11, MELISSA 7 =5 Relevant Medications escitalopram (Lexapro) 10 MG tablet ARIPiprazole (Abilify) 5 MG tablet LORENZO (obstructive sleep apnea) You have a diagnosis of obstructive sleep apnea. It is recommended that you wear your PAP device any time while in bed sleeping. Not using the PAP device can increase your risk of elevated/uncontrolled high blood pressure, atrial fibrillation, heart attack, stroke, or sudden . Does not wear this , never has, dx 20 years ago Encounter for subsequent annual wellness visit (AWV) in Medicare patient - Primary I have reviewed Ht/Wt/BMI, I have reviewed recommended vaccines for patient's age, as well as all recommended screenings I have reviewed available care everywhere notes as well. I have recommended eating a balanced diet, as well as activity as chronic conditions allow It is recommended that the patient have a yearly eye exam, as well as twice a year dental exams Fu in this office for wellness on a yearly basis Generalized anxiety disorder with panic attacks (CMS/HCC) Lexapro at 20mg anhedonia, and at 10mg not helping Will add buspar 5mg BID Add abilify at 5mg Fu in 4 weeks Relevant Medications escitalopram (Lexapro) 10 MG tablet ARIPiprazole (Abilify) 5 MG tablet busPIRone (Buspar) 5 MG tablet Associated Problem(s): Encounter for subsequent annual wellness visit (AWV) in Medicare patient I have reviewed Ht/Wt/BMI, I have reviewed recommended vaccines for patient's age, as well as all recommended screenings I have reviewed available care everywhere notes as well. I have recommended eating a balanced diet, as well as activity as chronic conditions allow It is recommended that the patient have a yearly eye exam, as well as twice a year dental exams Fu in this office for wellness on a yearly basis Associated Problem(s): Anxiety and depression (CMS/HCC) (Resolved 05/18/2024) Did increase lexapro to 20mg at last visit Has attended grief counseling, did not want to return, feels she has some goals she is working on and things to occupy her time Associated Problem(s): Class 3 severe obesity without serious comorbidity with body mass index (BMI) of 45.0 to 49.9 in adult (CMS/HCC) Discussed with patient their BMI (actual, verses recommended). We have also discussed lifestyle modifications: attempts to perform physical activity as chronic conditions allow, also to monitor dietary intake: increasing protein/fruits/veggies and lowering carb intake (unless contraindicated). Limit sodas, juices, and sugary drinks. Also discussed oral medications that can be utilized for weight loss, as well as surgical options for weight loss. It ws discussed at previous appt regarding checking with Neurology to see if ok for her to trial wegovy, no contra indications for this med otherwise Associated Problem(s): Primary insomnia Continue trazodone doing well when takes meds sleeps 7 hours Associated Problem(s): LORENZO (obstructive sleep apnea) You have a diagnosis of obstructive sleep apnea. It is recommended that you wear your PAP device any time while in bed sleeping. Not using the PAP device can increase your risk of elevated/uncontrolled high blood pressure, atrial fibrillation, heart attack, stroke, or sudden . Does not wear this , never has, dx 20 years ago Associated Problem(s): Multiple sclerosis (CMS/HCC) Continue with neurology and treatment documented in this encounter [facility] 05-18-2024 Instructions Kristin Gracia NP - 05/18/2024 9:20 AM EST Keep escitalopram at 10mg, add ariprazole 5mg daily, add buspar 5mg twice a day for anxiety Follow up appt in 4 weeks Need mammogram-I will fax order to [facility] documented in this encounter [facility] 05-04-2024 Telephone encounter Note Per Aria Agrawal, PT, she advises to notify Yamilka and inform due to ongoing neck pain we'd be able to cx Eval that is scheduled tomorrow. Though note w/ the date range post shoulder we'll keep referral open and to contact if neck pain may reside and willing to partake PT for shoulder. She noted the recommendation. [facility] 05-04-2024 Miscellaneous Notes Per Aria Agrawal, PT, she advises to notify Yamilka and inform due to ongoing neck pain we'd be able to cx Eval that is scheduled tomorrow. Though note w/ the date range post shoulder we'll keep referral open and to contact if neck pain may reside and willing to partake PT for shoulder. She noted the recommendation. She called noting she has been having severe neck pain which results in 3 bulging discs in her neck; she has an appt w/ Oren Chinchilla 08/11/24. Due to severity of pain she feels PT addressing her shoulder would be useless beginning tomorrow. She cx; I noted I would inform PT and notify if requested. documented in this encounter [facility] 05-04-2024 Telephone encounter Note She called noting she has been having severe neck pain which results in 3 bulging discs in her neck; she has an appt w/ Oren Chinchilla 08/11/24. Due to severity of pain she feels PT addressing her shoulder would be useless beginning tomorrow. She cx; I noted I would inform PT and notify if requested. [facility] 04-27-2024 History of Presen t illness Narrative Associated Order(s): L Inj/Asp: L subacromial bursa Post-Procedure Diagnose(s): Adhesive capsulitis of left shoulder; S/P arthroscopy of left shoulder L Inj/Asp: L subacromial bursa on 04/27/2024 9:43 AM Indications: pain Details: 25 G needle, ultrasound-guided anterolateral approach Medications: 12 mg betamethasone acetate-betamethasone sodium phosphate 6 (3-3) MG/ML Procedure, treatment alternatives, risks and benefits explained, specific risks discussed. Consent was given by the patient. Immediately prior to procedure a time out was called to verify the correct patient, procedure, equipment, residential support worker and site/side marked as required. Patient was prepped and draped in the usual sterile fashion. Images from the original note were not included. Subjective Patient ID: Yamilka Vasquez is a 53 y.o. female. Chief Complaint: Post-op of the Left Shoulder (Lt shoulder scope, RCR TSCNCO 02/10/24) Last Surgery: No surgery found Last Surgery Date: No surgery found HPI Yamilka comes in today she is having a tough time she lost her since she had surgery. She has been in therapy and needs a new prescription as the other 1 is . She is really struggling with her left shoulder she is having a lot of neck pain she is going to be seeing Dr. Chinchilla in the next week or so for her neck and bulging discs. She appears to be suffering more from adhesive capsulitis post surgery. She states she did have a Monocryl suture that wanted to poke through his skin in her son was able to help extract this with no significant difficulty or evidence of infection. She is tearful today and just having a tough time with her recovery and loss of her as well as her chronic cervical neck pain associated with bulging disc. Objective Ortho Exam Patient has forward flexion of 90 degrees restricted by adhesive capsulitis. Her incisions have healed up nicely with no evidence of drainage or retained suture today. She has abduction to 50 degrees also associated with frozen shoulder internal rotation is very limited able to get to the SI joint external rotation from neutral 70 degrees. Image Results: XR shoulder 2+ views left Imaging Result: Two views, AP and Lateral, in the office taken today saved to the permanent record shows post surgical change with acromioplasty/partial distal clavulectomy with appropriate coplaning. No acute fracture, dislocation, tumor or infection seen. Assessment/Plan Encounter Diagnoses: Adhesive capsulitis of left shoulder S/P arthroscopy of left shoulder Orders Placed This Encounter L Inj/Asp: L subacromial bursa Ambulatory referral to Physical Therapy Follow up in about 6 weeks (around 06/08/2024) for symptom check. Continue to work on her own range of motion stretching the shoulder causing discomfort we will help re-establish the elasticity needed for normal range of motion and decrease her pain from her secondary adhesive capsulitis or frozen shoulder. Cortisone should start to improve her symptoms and 48 hours up to a week. Cold pack is very helpful 20 minutes several times a day. May use moist heat prior to stretching and working on range of motion at home otherwise would follow with cold pack to reduce the inflammation from increasing hours to come after the heat is used. Follow-up in 6 weeks to note her progress and mobility. Naprosyn may be helpful as long as you taken it with food to avoid GI upset help reduce inflammation more so than the Tylenol but Tylenol can be used for breakthrough discomfort. documented in this encounter [facility] 04-27-2024 Instructions MARCELLE Perea - 04/27/2024 9:00 AM EST Continue to work on her own range of motion stretching the shoulder causing discomfort we will help re-establish the elasticity needed for normal range of motion and decrease her pain from her secondary adhesive capsulitis or frozen shoulder. Cortisone should start to improve her symptoms and 48 hours up to a week. Cold pack is very helpful 20 minutes several times a day. May use moist heat prior to stretching and working on range of motion at home otherwise would follow with cold pack to reduce the inflammation from increasing hours to come after the heat is used. Follow-up in 6 weeks to note her progress and mobility. Naprosyn may be helpful as long as you taken it with food to avoid GI upset help reduce inflammation more so than the Tylenol but Tylenol can be used for breakthrough discomfort. documented in this encounter [facility] 04-27-2024 Telephone encounter Note Please call to schedule pt a fu appt in the next month [place] [facility] 04-27-2024 Miscellaneous Notes Please call to schedule pt a fu appt in the next month [place] documented in this encounter [facility] 03-09-2024 Telephone encounter Note Patient stated she has a shoulder stitch still in from Left shoulder arthroscopy on 02/10/24 with MTP I asked patient if she needs a nurse visit to clarify it is a stitch. She said no because our office is 40 minutes away and urgent care is 5 minutes away. I told patient she should call [facility] and make sure that is something they can do/are comfortable with. Patient then states omg noone wants to look at my shoulder I'm going to take a shot of araceli miller and pull it out with some floss I advised patient that was not the smart thing to do and she told me to kiss her ass she's doing it and hung up. [facility] 03-09-2024 Miscellaneous Notes Patient stated she has a shoulder stitch still in from Left shoulder arthroscopy on 02/10/24 with MTP I asked patient if she needs a nurse visit to clarify it is a stitch. She said no because our office is 40 minutes away and urgent care is 5 minutes away. I told patient she should call [facility] and make sure that is something they can do/are comfortable with. Patient then states omg noone wants to look at my shoulder I'm going to take a shot of araceli miller and pull it out with some floss I advised patient that was not the smart thing to do and she told me to kiss her ass she's doing it and hung up. documented in this encounter [facility] 03-05-2024 History of Presen t illness Narrative Associated Problem(s): Candidiasis of skin D/t her arm being in a sling, she is requesting we use nystatin powder as cream and ointment is not something she can properly use at this time Associated Problem(s): Anxiety and depression (CMS/HCC) We will increase dose on lexapro to 20mg daily Attended grief counseling, did not want to return, feels she has some goals she is working on and things to occupy her time Fu in 4 weeks Pt brother had a stroke yesterday and her mother after having a stroke- she is now concerned for herself on stroke risks Images from the original note were not included. Yamilka Vasquez is a 53 y.o. female presents with chief complaint of No chief complaint on file. HPI: Also needs anti fungal powder Depression Visit Type: follow-up Patient presents with the following symptoms: depressed mood, irritability, nervousness/anxiety and thoughts of . Patient is not experiencing: anhedonia, chest pain, compulsions, decreased concentration, excessive worry, fatigue, feelings of hopelessness, feelings of worthlessness, insomnia, muscle tension, nausea, obsessions, palpitations, panic, psychomotor agitation, restlessness, shortness of breath, suicidal ideas (few weeks ago, no current), suicidal planning, weight gain and weight loss. Frequency of symptoms: occasionally Severity: moderate Compliance with medications: 76-100% Anxiety Presents for follow-up visit. Symptoms include depressed mood, irritability and nervous/anxious behavior. Patient reports no chest pain, compulsions, decreased concentration, dizziness, excessive worry, feeling of choking, insomnia, muscle tension, nausea, obsessions, palpitations, panic, restlessness, shortness of breath or suicidal ideas (few weeks ago, no current). Symptoms occur most days. The severity of symptoms is moderate. Compliance with medications is 76-100%. SUBJECTIVE: MEDICATIONS: Current Outpatient Medications Medication Instructions acetaminophen (Tylenol) 500 MG tablet Oral albuterol HFA (Ventolin HFA) 90 mcg/act inhaler 2 puffs, Inhalation, Every 6 hours PRN escitalopram (LEXAPRO) 10 mg, Oral, Daily naproxen (Naprosyn) 250 MG tablet Oral ocrelizumab (Ocrevus) 300 MG/10ML solution 10 mL, As needed Percocet 5-325 MG tablet See Instructions, 40 tab(s), Refill(s) 0, Take one to two oral every 4 hours as needed for shoulder surgical pain., [employer] #72, 167.7, cm, 02/05/24 11:09:00 EDT, Height/Length Dosing, 131.3, kg, 02/05/24 11:09:00 EDT, Weight Dosing traZODone (DESYREL) 100 mg, Oral, Nightly ALLERGIES: No Known Allergies REVIEW OF SYMPTOMS: Review of Systems Constitutional: Positive for irritability. Negative for appetite change, chills, fever, weight gain and weight loss. HENT: Negative for congestion, ear pain and sore throat. Eyes: Negative for pain, discharge, redness and visual disturbance. Respiratory: Negative for cough, shortness of breath and wheezing. Cardiovascular: Negative for chest pain, palpitations and leg swelling. Gastrointestinal: Negative for abdominal pain, blood in stool, constipation, diarrhea, nausea and vomiting. Genitourinary: Negative for difficulty urinating, dysuria and frequency. Musculoskeletal: Positive for arthralgias. Negative for back pain, joint swelling and myalgias. Skin: Positive for rash. Negative for wound. Neurological: Negative for dizziness, tremors, seizures, syncope and headaches. Psychiatric/Behavioral: Positive for depression. Negative for behavioral problems, decreased concentration, self-injury and suicidal ideas (few weeks ago, no current). The patient is nervous/anxious. The patient does not have insomnia. Depression Hematological: Does not bruise/bleed easily. Endocrine: Negative for polydipsia, polyphagia and polyuria. Allergic/Immunologic: Negative for environmental allergies and food allergies. PAST MEDICAL HISTORY Past Medical History: Diagnosis Date Abnormal CBC 07/30/2023 Anxiety and depression ([facility]/HCC) Carpal tunnel syndrome 2002 Chronic diarrhea Chronic shoulder pain 05/01/2023 Class 3 severe obesity without serious comorbidity with body mass index (BMI) of 45.0 to 49.9 in adult ([facility]) 04/30/2023 Constipation Depression ([facility]) Hot flashes 07/30/2023 Hyperlipidemia, acquired ([facility]) 07/30/2023 Hypertension ([facility]) Knee pain, left anterior Major depression (CMS/HCC) Morbid obesity with BMI of 40.0-44.9, adult ([facility]) Multiple sclerosis ([facility]) Night sweats 07/30/2023 LORENZO (obstructive sleep apnea) 07/30/2023 Pain of left middle finger Primary insomnia Rash Rectal burning Right knee pain, unspecified chronicity Sinusitis Stroke (CMS/HCC) 07/30/2023 Urinary incontinence in female Vaginal discharge Vitamin D deficiency Past Surgical History: Procedure Laterality Date CARPAL TUNNEL RELEASE Right 2004 ECTOPIC SURGERY HYSTERECTOMY 1991 SHOULDER SURGERY Left 02/10/2024 Arthroscopy, RCR @ [facility] w/ MTP TUBAL LIGATION 1990 family history includes Aneurysm in her mother; Arthritis in her mother; Cancer in her father; Hypertension in her brother, mother, paternal grandfather, and sister; Stroke in her sister. OBJECTIVE: Visit Vitals BP 112/82 (BP Location: Right arm, Patient Position: Sitting, BP Cuff Size: Adult long) Pulse 82 Temp 97.6 F (Temporal) Resp 18 Ht 5' 5 Wt 279 lb 6.4 oz SpO2 97% BMI 46.49 kg/m OB Status Unknown Smoking Status Former BSA 2.41 m Physical Exam Vitals and nursing note reviewed. Constitutional: General: She is not in acute distress. Appearance: Normal appearance. HENT: Head: Normocephalic and atraumatic. Right Ear: External ear normal. Left Ear: External ear normal. Nose: Nose normal. Mouth/Throat: Mouth: Mucous membranes are moist. Eyes: General: No scleral icterus. Extraocular Movements: Extraocular movements intact. Conjunctiva/sclera: Conjunctivae normal. Neck: Vascular: No carotid bruit. Cardiovascular: Rate and Rhythm: Normal rate and regular rhythm. Pulses: Normal pulses. Heart sounds: Normal heart sounds. Pulmonary: Effort: Pulmonary effort is normal. No respiratory distress. Breath sounds: Normal breath sounds. No stridor. No wheezing, rhonchi or rales. Abdominal: General: Bowel sounds are normal. There is no distension. Palpations: Abdomen is soft. There is no mass. Tenderness: There is no abdominal tenderness. Musculoskeletal: General: Normal range of motion. Cervical back: Normal range of motion and neck supple. Right lower leg: No edema. Left lower leg: No edema. Comments: Left shoulder in sling Lymphadenopathy: Cervical: No cervical adenopathy. Skin: General: Skin is warm and dry. Capillary Refill: Capillary refill takes 2 to 3 seconds. Findings: No rash (under breasts, and skin folds mild erythema c/w candidiasis). Neurological: General: No focal deficit present. Mental Status: She is alert and oriented to person, place, and time. Psychiatric: Thought Content: Thought content normal. Judgment: Judgment normal. Comments: Tearful when talking about brother/mother/ ASSESSMENT AND PLAN: No follow-ups on file. Problem List Items Addressed This Visit Anxiety and depression (CMS/HCC) We will increase dose on lexapro to 20mg daily Attended grief counseling, did not want to return, feels she has some goals she is working on and things to occupy her time Fu in 4 weeks Relevant Medications escitalopram (Lexapro) 20 MG tablet Needs flu shot - Primary Relevant Orders Flu vaccine, MDCK, quadrivalent, PF (MCU615) (Flucelvax single dose syringe) Candidiasis of skin D/t her arm being in a sling, she is requesting we use nystatin powder as cream and ointment is not something she can properly use at this time Relevant Medications nystatin (Mycostatin) [id number] UNIT/GM powder documented in this encounter [facility] 02-25-2024 History of Presen t illness Narrative Chief complaint: S/P left shoulder scope/RC repair-first postoperative visit History: S/P shoulder scope, doing well. No complaints with anesthesia or daniel-operative ancillary care. Block was helpful and no residual deficits/concerns. Pain is controlled. No chest or SOB. Physical Exam: The shoulder has mild swelling. No rash or infection. Portals are clean, dry and intact. Sutures are removed. AROM improving with mild stiffness as expected. NVM intact distally. Xrays: Two views, AP and Lateral, in the office taken today saved to the permanent record shows post surgical change with acromioplasty/partial distal clavulectomy with appropriate coplaning. No acute fracture, dislocation, tumor or infection seen. Arthroscopic prints reviewed. Assessment: S/P left shoulder scope/RC repair-first post operative visit Large RC protocol Treatment Plan: The nature of the findings were discussed at length. Adriana removed. Pain controlled. Emotional with passing of spouse. Ice 2-3 three times a day for the next couple weeks. Sling for 2 more weeks. PT was sent [facility]'s Nitish large RC repair protocol. F/U will be in 2 months, prn if doing well. All questions answered. documented in this encounter [facility] 02-14-2024 Telephone encounter Note MTP- PO Lt shoulder scope prob RCR TSCNCO 02/10/24 Patient called requesting a home health assistance, she states she has noone to help her I spoke with Naomi- with her type of surgery she will not qualify for any assistance. At this time we cannot order a home health assistance for her- Can you please call patient and inform her. [facility] 02-14-2024 Miscellaneous Notes MTP- PO Lt shoulder scope prob RCR TSCNCO 02/10/24 Patient called requesting a home health assistance, she states she has noone to help her I spoke with Naomi- with her type of surgery she will not qualify for any assistance. At this time we cannot order a home health assistance for her- Can you please call patient and inform her. documented in this encounter [facility] 02-13-2024 Telephone encounter Note Was wanting to know if she could stop taking the percocet, pain isn't that bad and she was wanting to take her trazodone. [facility] 02-13-2024 Miscellaneous Notes Was wanting to know if she could stop taking the percocet, pain isn't that bad and she was wanting to take her trazodone. documented in this encounter [facility] 02-10-2024 Hospital Discharg e instructions Patient Education 02/10/2024 15:39:49 Shoulder Cryocuff Patient Instructions - FT (CUSTOM) 02/10/2024 15:39:45 Post Op Patient Instructions - FT (CUSTOM) 02/06/2024 18:01:14 Brooks - After Your Shoulder Arthroscopy (Revised 06/17/14) (CUSTOM) [place], [place] [facility] AFTER YOUR SHOULDER ARTHROSCOPY 1.Diet Begin with a liquid diet and advance to your normal diet as tolerated. 2.Activity You may gradually increase your activity as tolerated. Until your first post-operative visit, you may want to elevate your arm higher than your heart, whenever you are sitting or lying down. The swelling will gradually decrease after your surgery. Increased swelling is usually a sign of over-activity and should be a signal for you to be less active and apply ice as needed. You are encouraged to use your shoulder as this is comfortably tolerated. Do not forcefully perform exercises until you have permission. Driving Driving is legal. But if you are involved in an accident, you must be able to prove that you maintained full control of your vehicle. For this reason, it is advised that you do not drive until your strength returns. Similarly, all sports activities are discouraged, at least until your first post-operative visit at which time we will discuss how and when to resume sports. 4. Pain Usually this is the result of over-activity and should respond well to rest, ice and elevation. If this does not provide relief, take the pain medication as directed but do not return to activity. Pain is a protective mechanism that signals potential injury and should not be masked by medication when you are active. If pain persists despite rest, elevation and medication, contact your surgeon. You will be given a prescription for pain medications prior to leaving the hospital. Please inform us of any known drug allergy. If you have any problems with the medication, it should be discontinued and our office notified. The sensation of splashing of fluid inside the joint is not cause for concern. It represents residual fluids from surgery and they will be absorbed. Elevation of the arm and application of an ice pack will minimize swelling and discomfort in the first 48 hours after surgery. 5. Bandage Soft compression dressing has been applied to your shoulder. This dressing should be comfortable and absorb any leakage of fluid or blood from your operated shoulder. Although the dressing may become moist or blood stained, this is not usually a cause for concern. If this persists, notify your surgeon. You may remove the dressing 48 hours after your surgery. . Apply betadine and band-aids to the small incisions once or twice daily as needed. 6.Incisions The portals of entry may be sore and develop bruising over the next several days. The bruising eventually resolves and does not require any special care. Do not apply creams or lotions to your shoulder. Your portals will heal well on their own. 7.Bathing You may shower 48 hours after surgery. Bathing or soaking in water should be avoided until your first post-operative visit. 8.Precautions If you develop fever (101 degrees or above), increasing pain (not relieved by rest, elevation, ice) and medication as prescribed, redness or swelling in your shoulder or arm, please contact the office or the hospital. If you notice increased drainage from the operative portals after the third day, this should also be reported. 9.Return Visit Your first post-operative follow-up appointment is generally between 10 and 14 days after discharge from the hospital and you will be given an appointment card. Do not hesitate to call the office or the hospital if any problems or questions arise before your appointment. Eliazar Brooks, DO [facility] [address] [place] [id number] Reviewed: 06-03 Follow Up Care 12/24/2023 11:37:06 With:YUE Santamaria Address: [address] [place] [address]- Business (1) When:02/25/2024 14:30:00 Comments:Keep scheduled appointmentCall for any problems. [facility] 02-10-2024 Note Progress Note-Physic dennis Patient: YAMILKA VASQUEZ Age: 53 years Sex: Female : 1970 Associated Diagnoses: None Author: Mina BENITEZ, Mynor Markham Postoperative Information Postoperative disposition: Postoperative disposition: To PACU. Optimetrix number: Optimetrix number [id number]. Anesthetic utilized: General. Regional: Interscalene Block. Health Status Allergies: Allergic Reactions (Selected) No Known Allergies Physical Examination Vital Signs 02/10/2024 15:40 EDT Heart Rate Monitored 67 bpm Respiratory Rate Monitored 15 br/min Systolic Blood Pressure 131 mmHg Diastolic Blood Pressure 85 mmHg Mean Arterial Pressure, Cuff 100 mmHg SpO2 100 % 02/10/2024 15:37 EDT Temperature Axillary 36.5 DegC Heart Rate Monitored 70 bpm Respiratory Rate Monitored 21 br/min Systolic Blood Pressure 125 mmHg Diastolic Blood Pressure 78 mmHg Blood Pressure Location Right arm Mean Arterial Pressure, Cuff 94 mmHg SpO2 100 % Pain Assessment: Controlled. General: Awake, Appropriate. Respiratory: Adequate air exchange. Cardiovascular: Stable. Neurological Assessment Anesthetic outcome No anesthetic complications noted. Adequate pain relief. Review / Management Condition: Stable. Plan Transfer/Discharge: Transfer/Discharge Discharge when meets criteria ( To home ). [facility] Comment on above: Result Comment: Elec tronically Signed By: Mina BENITEZ, Mynor Markham\.br\Date and Time Signed: 02/10/24 16:19 EDT 02-10-2024 Note Patient Education - Text [place], [place] [facility] AFTER YOUR SHOULDER ARTHROSCOPY 1. Diet Begin with a liquid diet and advance to your normal diet as tolerated. 2. Activity You may gradually increase your activity as tolerated. Until your first post-operative visit, you may want to elevate your arm higher than your heart, whenever you are sitting or lying down. The swelling will gradually decrease after your surgery. Increased swelling is usually a sign of over-activity and should be a signal for you to be less active and apply ice as needed. You are encouraged to use your shoulder as this is comfortably tolerated. Do not forcefully perform exercises until you have permission. Driving Driving is legal. But if you are involved in an accident, you must be able to prove that you maintained full control of your vehicle. For this reason, it is advised that you do not drive until your strength returns. Similarly, all sports activities are discouraged, at least until your first post-operative visit at which time we will discuss how and when to resume sports. 4. Pain Usually this is the result of over-activity and should respond well to rest, ice and elevation. If this does not provide relief, take the pain medication as directed but do not return to activity. Pain is a protective mechanism that signals potential injury and should not be masked by medication when you are active. If pain persists despite rest, elevation and medication, contact your surgeon. You will be given a prescription for pain medications prior to leaving the hospital. Please inform us of any known drug allergy. If you have any problems with the medication, it should be discontinued and our office notified. The sensation of splashing of fluid inside the joint is not cause for concern. It represents residual fluids from surgery and they will be absorbed. Elevation of the arm and application of an ice pack will minimize swelling and discomfort in the first 48 hours after surgery. 5. Bandage Soft compression dressing has been applied to your shoulder. This dressing should be comfortable and absorb any leakage of fluid or blood from your operated shoulder. Although the dressing may become moist or blood stained, this is not usually a cause for concern. If this persists, notify your surgeon. You may remove the dressing 48 hours after your surgery. . Apply betadine and band-aids to the small incisions once or twice daily as needed. 6. Incisions The portals of entry may be sore and develop bruising over the next several days. The bruising eventually resolves and does not require any special care. Do not apply creams or lotions to your shoulder. Your portals will heal well on their own. 7. Bathing You may shower 48 hours after surgery. Bathing or soaking in water should be avoided until your first post-operative visit. 8. Precautions If you develop fever (101 degrees or above), increasing pain (not relieved by rest, elevation, ice) and medication as prescribed, redness or swelling in your shoulder or arm, please contact the office or the hospital. If you notice increased drainage from the operative portals after the third day, this should also be reported. 9. Return Visit Your first post-operative follow-up appointment is generally between 10 and 14 days after discharge from the hospital and you will be given an appointment card. Do not hesitate to call the office or the hospital if any problems or questions arise before your appointment. Eliazar Brooks, DO [facility] [address] [place] [address] Reviewed: 06-03 [facility] 02-10-2024 Evaluation + Plan note Extrac jonah from: Title:ANES Post-operative Note---General Author: Mynor Enriquez MD. Date:02/10/24 Plan Transfer/Discharge: Transfer/Discharge Discharge when meets criteria ( To home ). Extracted from: Title:ANES Pre-operative Note 2022 Author:Mynor Young. Date:02/10/24 Plan [place] [employer]esthesiologists (ASA) physical status classification: Class III. Anesthetic Preoperative Plan: Anesthesia General, and LMA. Regional Interscalene block. [facility] 09-23-2024 NoteProgress Note-Physician Patient: YAMILKA VASQUEZ Age: 53 years Sex: Female : 1970 Associated Diagnoses: None Author: Mynor Enriquez MD Preoperative Information Anesthesia Preop Info: Time patient last ate or drank 02/10/2024 00:00:00. Anesthesia history: Patient history: None. Family history+: None. Informed consent: Signed by patient. Re-evaluation prior to induction: Initial evaluation reviewed: No significant change. Review of Systems Eye Ear/Nose/Mouth/Throat Respiratory: No shortness of breath, No cough. Cardiovascular: Negative, No chest pain. Gastrointestinal: No heartburn. Musculoskeletal Neurologic Health Status Allergies: Allergic Reactions (Selected) No Known Allergies, Allergies (1) Active Severity Reaction No Known Allergies None Documented Current medications: (Selected) Inpatient Medications Ordered HYDROmorphone 1 mg/mL injectable solution: 1 mg = 1 mL, Injection, IV Push, q2hr PRN Pain 8-10 for 5 day(s), Stop date 02/15/24 14:59:00 EDT, Routine, Start date 02/10/24 15:00:00 EDT, 02/10/24 15:00:00 EDT HYDROmorphone 1 mg/mL injectable solution: 1 mg = 1 mL, Injection, IV Push, q2hr PRN Pain 8-10 for 5 day(s), Stop date 02/15/24 14:59:00 EDT, Routine, Start date 02/10/24 15:00:00 EDT, 02/10/24 15:00:00 EDT Lactated Ringers IV Silvia 1000 mL 1,000 mL: 1,000 mL, IV, 150 mL/hr, Routine, Start date 02/10/24 11:30:00 EDT, 6.7 hour(s), Total volume (mL): 1,000, 131.3 kg, 2.47, m2 Zofran 4 mg/2 mL Injection: 4 mg = 2 mL, Injection, IV Push, q4hr PRN Nausea/Vomiting, Routine, Start date 02/10/24 15:00:00 EDT, 02/10/24 15:00:00 EDT Zofran 4 mg/2 mL Injection: 4 mg = 2 mL, Injection, IV Push, q4hr PRN Nausea/Vomiting, Routine, Start date 02/10/24 15:00:00 EDT, 02/10/24 15:00:00 EDT acetaminophen-oxycodone 325 mg-5 mg Tab: 1 tab(s), Tab, Oral, q6hr PRN Pain 4-7 for 5 day(s), Stop date 02/15/24 14:59:00 EDT, Routine, Start date 02/10/24 15:00:00 EDT acetaminophen-oxycodone 325 mg-5 mg Tab: 1 tab(s), Tab, Oral, q6hr PRN Pain 4-7 for 5 day(s), Stop date 02/15/24 14:59:00 EDT, Routine, Start date 02/10/24 15:00:00 EDT acetaminophen-oxycodone 325 mg-5 mg Tab: 2 tab(s), Tab, Oral, q6hr PRN Pain 4-7 for 5 day(s), Stop date 02/15/24 14:59:00 EDT, Routine, Start date 02/10/24 15:00:00 EDT acetaminophen-oxycodone 325 mg-5 mg Tab: 2 tab(s), Tab, Oral, q6hr PRN Pain 4-7 for 5 day(s), Stop date 02/15/24 14:59:00 EDT, Routine, Start date 02/10/24 15:00:00 EDT cefazolin additive + Premix Sodium Chloride 0.9% 100 mL: 3 gram = 100 mL, Soln- IV, IV Piggyback, PREOP, Routine, Start date 02/10/24 11:30:00 EDT, 200 mL/hr, Infuse over 30 minute(s) morphine 2 mg/mL Inj: 2 mg = 1 mL, Injection, IV Push, q4hr PRN Pain 8-10 for 5 day(s), Stop date 02/15/24 14:59:00 EDT, Routine, Start date 02/10/24 15:00:00 EDT morphine 2 mg/mL Inj: 2 mg = 1 mL, Injection, IV Push, q4hr PRN Pain 8-10 for 5 day(s), Stop date 02/15/24 14:59:00 EDT, Routine, Start date 02/10/24 15:00:00 EDT morphine 4 mg/mL Inj: 4 mg = 1 mL, Injection, IV Push, q4hr PRN Pain 8-10 for 5 day(s), Stop date 02/15/24 14:59:00 EDT, Routine, Start date 02/10/24 15:00:00 EDT morphine 4 mg/mL Inj: 4 mg = 1 mL, Injection, IV Push, q4hr PRN Pain 8-10 for 5 day(s), Stop date 02/15/24 14:59:00 EDT, Routine, Start date 02/10/24 15:00:00 EDT Prescriptions Prescribed Percocet 5 mg-325 mg oral tablet: See Instructions, 40 tab(s), Refill(s) 0, Take one to two oral every 4 hours as needed for shoulder surgical pain., [employer] #72, 167.7, cm, 02/05/24 11:09:00 EDT, Height/Length Dosing, 131.3, kg, 02/05/24 11:09:00 EDT, Weight Dosing Documented Medications Documented Multivitamins and Minerals: 1 tab, Oral, Daily, Prophylaxis Naprosyn 500 mg Tab: 500 mg = 1 tab(s), Oral, BID, PRN Pain, Pain Ocrevus 300 mg/10 mL intravenous solution: q6mo, Refills(s) 0 Tylenol: 1,000 mg, Oral, q6hr, PRN as needed for pain Vitamin B12: 2,500 mcg, SubLingual, Daily, Refills(s) 0, Prophylaxis Vitamin D: 1,200 International_Unit, Oral, Daily, Prophylaxis escitalopram 10 mg Tab: 10 mg = 1 tab(s), Oral, Daily, Refills(s) 0, Anxiety traZODONE 50 mg Tab: 50 mg = 1 tab(s), Oral, Once a day (at bedtime), PRN Sleep, Refills(s) 0, Home Medications (9) Active escitalopram 10 mg Tab 10 mg = 1 tab(s), Oral, Daily Multivitamins and Minerals 1 tab, Oral, Daily Naprosyn 500 mg Tab 500 mg = 1 tab(s), PRN, Oral, BID Ocrevus 300 mg/10 mL intravenous solution , q6mo Percocet 5 mg-325 mg oral tablet See Instructions traZODONE 50 mg Tab 50 mg = 1 tab(s), PRN, Oral, Once a day (at bedtime) Tylenol 1,000 mg, PRN, Oral, q6hr Vitamin B12 2,500 mcg, SubLingual, Daily Vitamin D 1,200 International_Unit, Oral, Daily , Medications (14) Active Scheduled: (1) ceFAZolin + Premix Sodium Chloride 0.9% Diluent 100 mL 3 gram 100 mL, IV Piggyback, PREOP Continuous: (1) Lactated Ringers 1,000 mL 1,000 mL, IV, 150 mL/hr PRN: (12) acetaminophen-oxyC (more content not included)...[facility] Comment on above:Result Comment: Electronically Signed By: Mina BENITEZ, Mynor Markham\.br\Date and Time Signed: 02/10/24 13:21 [id number] History of Present illness Narrative* Kristin Gracia NP - 02/03/2024 3:02 PM EDTAssociated Problem(s): Diverticulitis Fluids, atb, fu if not better If any fever, chills or worsening in symptoms go to ER * TERESITA PEREIRA - 02/03/2024 2:20 PM EDT Pt has been having pain on the left lower abd quad for 7-10 days Pt has been cutting back on a lot of sugar-drinking more water and stopped drinking sweet tea. Pt needs a referral to see neuro to oren jackson at [facility] * Kristin Gracia NP - 02/03/2024 2:20 PM EDT Images from the original note were not included. Yamilka Vasquez is a 53 y.o. female presents with chief complaint of No chief complaint on file. HPI: Abdominal Pain This is a new problem. The current episode started 1 to 4 weeks ago. The onset quality is gradual. The problem occurs constantly. The problem has been gradually improving. The pain is located in the LLQ. Pain scale: at worst 10/10, average 6/10. The pain is moderate. The quality of the pain is sharp. The abdominal pain does not radiate. Associated symptoms include diarrhea. Pertinent negatives include no anorexia, arthralgias, constipation, dysuria, fever, frequency, headaches, hematochezia, hematuria, melena, myalgias, nausea or vomiting. The pain is aggravated by palpation. The pain is relieved by Nothing. Treatments tried: cephalexin helped some caused diarrhea. The treatment provided mild relief. Her past medical history is significant for irritable bowel syndrome. SUBJECTIVE: MEDICATIONS: Current Outpatient Medications Medication Instructions acetaminophen (Tylenol) 500 MG tablet Oral albuterol HFA (Ventolin HFA) 90 mcg/act inhaler 2 puffs, Inhalation, Every 6 hours PRN amoxicillin-clavulanate (Augmentin) 875-125 MG tablet 875 mg, Oral, 2 times daily, Take with food Apoycsu-Gotltcerbrh-Lnjrbeeotk (Breztri Aerosphere) 160-9-4.8 MCG/ACT aerosol 2 puffs, Inhalation, 2 times daily, Rinse mouth after use escitalopram (LEXAPRO) 10 mg, Oral, Daily naproxen (Naprosyn) 250 MG tablet Oral ocrelizumab (Ocrevus) 300 MG/10ML solution 10 mL, As needed traZODone (DESYREL) 100 mg, Oral, Nightly ALLERGIES: No Known Allergies REVIEW OF SYMPTOMS: Review of Systems Constitutional: Negative for appetite change, chills and fever. HENT: Negative for congestion, ear pain and sore throat. Eyes: Negative for pain, discharge, redness and visual disturbance. Respiratory: Negative for cough, shortness of breath and wheezing. Cardiovascular: Negative for chest pain, palpitations and leg swelling. Gastrointestinal: Positive for abdominal pain and diarrhea. Negative for anorexia, blood in stool, constipation, hematochezia, melena, nausea and vomiting. Genitourinary: Negative for difficulty urinating, dysuria, frequency and hematuria. Musculoskeletal: Negative for arthralgias, back pain, joint swelling and myalgias. Skin: Negative for rash and wound. Neurological: Negative for dizziness, tremors, seizures, syncope and headaches. Psychiatric/Behavioral: Negative for behavioral problems, self-injury and suicidal ideas. The patient is not nervous/anxious. Hematological: Does not bruise/bleed easily. Endocrine: Negative for polydipsia, polyphagia and polyuria. Allergic/Immunologic: Negative for environmental allergies and food allergies. PAST MEDICAL HISTORY Past Medical History: Diagnosis Date Abnormal CBC 07/30/2023 Anxiety and depression ([facility]) Carpal tunnel syndrome 2002 Chronic diarrhea Chronic shoulder pain 05/01/2023 Class 3 severe obesity without serious comorbidity with body mass index (BMI) of 45.0 to 49.9 in adult ([facility]) 04/30/2023 Constipation Depression ([facility]) Hot flashes 07/30/2023 Hyperlipidemia, acquired ([facility]) 07/30/2023 Hypertension ([facility]) Knee pain, left anterior Major depression ([facility]) Morbid obesity with BMI of 40.0-44.9, adult ([facility]) Multiple sclerosis ([facility]) Night sweats 07/30/2023 LORENZO (obstructive sleep apnea) 07/30/2023 Pain of left middle finger Primary insomnia Rash Rectal burning Right knee pain, unspecified chronicity Sinusitis Stroke ([facility]) 07/30/2023 Urinary incontinence in female Vaginal discharge Vitamin D deficiency Past Surgical History: Procedure Laterality Date CARPAL TUNNEL RELEASE Right 2005 ECTOPIC SURGERY HYSTERECTOMY 1990 TUBAL LIGATION 1990 family history includes Aneurysm in her mother; Arthritis in her mother; Cancer in her father; Hypertension in her brother, mother, paternal grandfather, and sister; Stroke in her sister. OBJECTIVE: Visit Vitals BP 128/90 (BP Location: Right arm, Patient Position: Sitting, BP Cuff Size: Adult long) Comment (BPCuff Size): right forarm Pulse 83 Temp 98.5 F (Temporal) Resp 18 Ht 5' 5 Wt 289 lb LMP (LMP Unknown) SpO2 93% BMI 48.09 kg/m OB Status Unknown Smoking Status Former BSA 2.45 m Physical Exam Vitals and nursing note reviewed. Constitutional: General: She is not in acute distress. Appearance: Normal appearance. HENT: Head: Normocephalic and atraumatic. Right Ear: External ear normal. Left Ear: External ear normal. Nose: Nose normal. Mouth/Throat: Mouth: Mucous membranes are moist. Eyes: Extraocular Movements: Extraocular movements intact. Conjunctiva/sclera: Conjunctivae normal. Cardiovascular: Rate and Rhythm: Normal rate and regular rhythm. Pulses: Normal pulses. Heart sounds: Normal heart sounds. Pulmonary: Effort: Pulmonary effort is normal. Breath sounds: Normal breath sounds. Abdominal: General: Bowel sounds are normal. There is no distension. Palpations: Abdomen is soft. There is no mass. Tenderness: There is no abdominal tenderness (mild tenderness to LLQ, no rebound/guarding). Musculoskeletal: General: Normal range of motion. Cervical back: Normal range of motion and neck supple. Skin: General: Skin is warm and dry. Capillary Refill: Capillary refill takes 2 to 3 seconds. Findings: No rash. Neurological: General: No focal deficit present. Mental Status: She is alert and oriented to person, place, and time. Psychiatric: Mood and Affect: Mood normal. Behavior: Behavior normal. Thought Content: Thought content normal. Judgment: Judgment normal. ASSESSMENT AND PLAN: No follow-ups on file. Problem List Items Addressed This Visit Class 3 severe obesity without serious comorbidity with body mass index (BMI) of 45.0 to 49.9 in adult ([facility]) Diverticulitis - Primary Fluids, atb, fu if not better If any fever, chills or worsening in symptoms go to ER Relevant Medications amoxicillin-clavulanate (Augmentin) 875-125 MG tablet documented in this encounterPershing Memorial [id number] History of Present illness Narrative* Renuka Bui - 01/30/2024 10:30 AM EDT Images from the original note were not included. GENERAL HISTORY AND PHYSICAL: NAME: Yamilka Vasquez : 1970 CHIEF COMPLAINT: Left shoulder pain and weakness. Review EMG. HISTORY OF PRESENT ILLNESS: Yamilka is here to review the EMG dated 01-23-2024. This does show moderate bilateral cubital tunnel syndrome, mild carpal tunnel syndrome. No sign of brachial plexus or neck involvement. She does state she has MS which could be a contributing factor. Her MRI of her shoulder did not confirm complete tear and had tendinopathy with an impingement picture. She still has difficulty lifting the left arm. She has pain in the arm. She is still emotional today with the passing of her spouse. She would like to move forward with the near future surgical intervention with left shoulder arthroscopy. Her son-in-law told her that most likely it is coming from her neck. She does have some follow up with Dr. Aron Chinchilla regarding her neck. The EMG shows no sign of neck compression. Yamilka is here as a 53-year-old female emotional with the passing of her spouse approximately a month ago. She has been dealing with this shoulder for several months. She has tried home exercise program, ice, Tylenol and analgesia. She has a drop arm and weakness of the shoulder. She has had some progressive numbness of her hand. She does have multiple sclerosis but states she has been stable in general. It does appear that some of the stress from the passing of her spouse as well as the heat and humidity has exacerbated this. She feels as though her legs are a little heavy, but not numb, tingling or weak. She has had no new falls, traumas or injuries reported. PAST MEDICAL HISTORY: Past Medical History: Diagnosis Date Abnormal CBC 07/30/2023 Anxiety and depression ([facility]) Carpal tunnel syndrome 2002 Chronic diarrhea Chronic shoulder pain 05/01/2023 Class 3 severe obesity without serious comorbidity with body mass index (BMI) of 45.0 to 49.9 in adult (CMS/HCC) 04/30/2023 Constipation Depression (CMS/HCC) Hot flashes 07/30/2023 Hyperlipidemia, acquired (CMS/HCC) 07/30/2023 Hypertension (CMS/HCC) Knee pain, left anterior Major depression (CMS/HCC) Morbid obesity with BMI of 40.0-44.9, adult ([facility]) Multiple sclerosis (CMS/HCC) Night sweats 07/30/2023 LORENZO (obstructive sleep apnea) 07/30/2023 Pain of left middle finger Primary insomnia Rash Rectal burning Right knee pain, unspecified chronicity Sinusitis Stroke (CMS/HCC) 07/30/2023 Urinary incontinence in female Vaginal discharge Vitamin D deficiency PAST SURGICAL HISTORY: Past Surgical History: Procedure Laterality Date CARPAL TUNNEL RELEASE Right 2005 ECTOPIC SURGERY HYSTERECTOMY 1990 TUBAL LIGATION 1990 SOCIAL HISTORY: Social History Occupational History Not on file Tobacco Use Smoking status: Former Current packs/day: 0.00 Types: Cigarettes Quit date: 12/29/2015 Years since quittin.1 Passive exposure: Past Smokeless tobacco: Never Vaping Use Vaping status: Never Used Substance and Sexual Activity Alcohol use: Not Currently Comment: tea and coffee 1-2 cups per day Drug use: Yes Types: Marijuana Comment: medical marijuana Sexual activity: Defer ALLERGIES: No Known Allergies MEDICATIONS: Current Outpatient Medications Medication Instructions acetaminophen (Tylenol) 500 MG tablet Oral albuterol HFA (Ventolin HFA) 90 mcg/act inhaler 2 puffs, Inhalation, Every 6 hours PRN Pvfeysp-Ubesvfjemzx-Bmeledlome (Breztri Aerosphere) 160-9-4.8 MCG/ACT aerosol 2 puffs, Inhalation, 2 times daily, Rinse mouth after use escitalopram (LEXAPRO) 10 mg, Oral, Daily naproxen (Naprosyn) 250 MG tablet Oral ocrelizumab (Ocrevus) 300 MG/10ML solution 10 mL, As needed traZODone (DESYREL) 100 mg, Oral, Nightly REVIEW OF SYSTEMS: The review of systems, history and current medications list are all reviewed today. Vitals: Visit Vitals Ht 5' 5 Wt 294 lb LMP (LMP Unknown) BMI 48.92 kg/m OB Status Unknown Smoking Status Former BSA 2.47 m PHYSICAL EXAM: On physical exam, she is alert and oriented. Vital signs are stable. Increased BMI is documented at 47. Large soft tissue envelope. There is no discernable atrophy or scapular winging.The left shoulder has moderate tenderness to palpation. Cuff tendinopathy signs are moderate to severe with pain. She has a positive drop arm with weakness of the arm, but it appears to be more neuropathic. She gets signs of neuropathy to both hands. Hard to tell if it is from her chronic neck painor from her distal involvement. Her cervical Spurling compression test produces pain with paraspinal tightness, right worse than left. X-rays, permanently saved to the patient's record, are reviewed of the shoulder shows mild glenohumeral degenerative changes. The acromiohumeral interval is appropriate. The A/C joint has hypertrophic changes noted. MRI is reviewed with cuff tendinopathy. There is no full thickness cuff tear identified. It was performed through [facility] performed recently from the permanent record. She has some degenerative characteristics of the A/C joint. She has impingement. Again, there is no full thickness tear identified on the MRI sequences. Degenerative labral characteristics are present. Surgical History and Physical: GENERAL AND PSYCHOLOGICAL: The patient is alert and oriented for age. HEAD AND E.E.N.T.: The skull is normocephalic. There is no mass or sign of trauma. NECK: The neck is supple. There is good range of motion. There is no mass or adenopathy appreciated. The thyroid is not enlarged. CARDIAC: The heart is regular. There is no murmur or ectopy appreciated. LUNGS: Inspiratory and expiratory excursions are symmetrical. The lung franks are clear in all quadrants. ABDOMEN: The texture is soft. Bowel sounds are heard well in all quadrants. There is no tenderness to palpation. There is no organomegaly appreciated. OSTEOPATHIC AND STRUCTURAL: There is no gross evidence of kyphosis, lordosis, scoliosis, or apparent leg length discrepancy, with no acute tissue texture changes in sitting or standing positions. ASSESSMENT: Left shoulder impingement syndrome, questionable rotator cuff tear. Bilateral moderate cubital tunnel syndrome. Bilateral mild recurrent carpal tunnel syndrome. Neck pain. Multiple sclerosis. Obesity. PLAN: The nature of the findings were discussed at length. She cannot active lift her arm. She can maintain it with assistance with the contralateral. She has no sign of neck or brachial plexus involvement on the EMG to contribute to weakness in that area. The strange thing is that there is no definite confirmed rotator cuff tear that is complete on the MRI. Potential false negative does exist. We discussed the role of shoulder arthroscopy. The perioperative course, time, healing, commitment and expectations were all reviewed we discussed the potential of rotator cuff repair. We will authorize ultra sling for the surgery. She is aware her obesity does increase her perioperative course of morbidity and mortality in the perioperative course. We discussed at a later date the role of anteriorulnar nerve transposition of the medial elbow, possible consideration of revision carpal tunnel release. These will have to be staged separately with respect to the shoulder and the arms distally. She voices verbal understanding. She is discharged in stable condition. Follow up postoperative for x-ray and exam, left shoulder. Eliazar Brooks D.O. documented in this encounterPershing Memorial [id number] Telephone encounter Note* Telephone Encounter - Michelle Haines - 01/17/2024 12:20 PM EDT Called patient back to let her know that Jessica's preference is for the patient to remain at [facility] ifshe is to order the medication. Patient said she would establish care with local neurologist. [facility]08-30-2024 Miscellaneous Notes* Telephone Encounter - Michelle Haines - 01/17/2024 12:20 PM EDT Called patient back to let her know that Jessica's preference is for the patient to remain at [facility] ifshe is to order the medication. Patient said she would establish care with local neurologist. * Telephone Encounter - Miri Soni - 01/14/2024 2:09 PM EDT Kriss Call Name of caller : Yamilka Vasquez Relationship to patient: Self Return call phone number : [phone] Reason for call : Other : Brief description of concern :Please fax infusion orders to [phone] [facility]. documented in this encounterCorey [facility]08-[facility]24 Telephone encounter Note * Telephone Encounter - Miri Soni - 01/14/2024 2:09 PM EDT Kriss Call Name of caller : Yamilka Vasquez Relationship to patient: Self Return call phone number : [phone] Reason for call : Other : Brief description of concern :Please fax infusion orders to [phone] [facility]. [facility] Work Phone: 1(346) 722-480608-01-2024 Telephone encounter Note* Telephone Encounter - She Healy - 12/19/2023 8:22 AM EDT Called patient to get her rescheduled from her infusion that she had missed after her . She told me that she is going to have to switch doctors and that she is going to work on that this week and that she didn't want to schedule her infusion now. Told the patient to call if she changes her mind. [facility]08-01-2024 Miscellaneous Notes* Telephone Encounter - She Healy - 12/19/2023 8:22 AM EDT Called patient to get her rescheduled from her infusion that she had missed after her . She told me that she is going to have to switch doctors and that she is going to work on that this week and that she didn't want to schedule her infusion now. Told the patient to call if she changes her mind. documented in this encounterCorey Hospital04-19-2024 NoteHNO ID: [id number] Author: KATERIN MCCOY PA-C Service: ? Author Type: Physician Boat Hoist Operator Helper Type: Progress Notes Filed: 09/06/2023 10:11 Note Text: SPINE SURGERY OUTPATIENT CONSULT This is a virtual visit using JellyCloudt Zoom Video Visit. It required patient-provider interaction for the medical decision making as documented below. I have communicated my name and active licensure. The patient's identity and physical location were verified at the time of this visit. Either the patient or their legal account services representative has been informed of the risks and benefits of -- and alternatives to -- treatment through a remote evaluation and consents to proceed with the evaluation remotely. SERVICE DATE: 09/06/2023 PCP: Valdez Acosta MD REFERRING PROVIDER: Jessica Clarke [facility]4 Jessica keila [facility] [id number] Consult requested for an opinion regarding the evaluation and treatment of neck pain. My final impression and recommendations will be communicated back to the requesting physician by way of the shared medical record or letter via US mail. SUBJECTIVE Yamilka Vasquez is a 53 year old female CHIEF COMPLAINT: left arm weakness HISTORY OF PRESENT ILLNESS PRECIPITATING EVENT: None DURATION OF SYMPTOMS: Greater Than 6 Weeks Seen virtually. Long standing hx of neck pain but she describes a new left arm weakness which started in April without any incident or event. She denies any pain in the arm that prevents her from using it she just feel like the arm is a stone . Describes being unable to lift the arm over head or lift it out to pick something up off the table. Numbness throughout the left hand. No decline with dexterity or balance. No dermatomal radiation of seth. Neck pain is the only pain she describes today. Working with pain management regarding neck pain in the past. PT in the past as well. Works with [email or web address] for her MS. Saw an outside orthopedic who said he did not feel it was the shoulder. ACTIVE PROBLEM LIST Adjustment Disorder With Mixed Anxiety and Depressed Mood Multiple Sclerosis (Hcc) Research Exam PAST MEDICAL HISTORY Diagnosis Date Depressive disorder, not elsewhere classified Hypertension MS (multiple sclerosis) (HCC) Pain in joint, multiple sites Unspecified sleep apnea PAST SURGICAL HISTORY Procedure Laterality Date CARPAL TUNNEL bilateral LAPS TX ECTOPIC PREG W/O SALPINGAND/OOPHORECTOMY FAMILY HISTORY Problem Relation Age of Onset Stroke Mother Hypertension Mother Thyroid Mother Arthritis Mother rheumatoid. Cataract Mother Heart Father Cancer Father colon? Thyroid Maternal Grandmother Cataract Sister Diabetes Sister None Other no ms Diabetes Brother Diabetes Brother Diabetes Sister other (heavy smoker) Sister Alcohol abuse Brother heavy smoker Alcohol abuse Brother Cancer Brother unsure what kind Accidental Brother other (lung disease) Brother heavy smoker No Known Problems Daughter No Known Problems Son Social History Tobacco Use Smoking status: Former Packs/day: 1.00 Years: 20.00 Additional pack years: 0.00 Total pack years: 20.00 Types: Cigarettes Quit date: 12/13/2016 Years since quittin.7 Smokeless tobacco: Never Tobacco comments: plans to try to quit at some point but not ready. Substance Use Topics Alcohol use: Yes Comment: rare Drug use: No ALLERGIES No Known Allergies MEDICATIONS: albuterol HFA (PROVENTIL HFA, VENTOLIN HFA) 90 mcg/actuation inhaler INHALE 2 PUFFS BY MOUTH EVERY 6 HOURS NEEDED FOR WHEEZING FOR SHORTNESS OF BREATH FLUoxetine (PROZAC) 20 mg capsule Daily meloxicam (MOBIC) 15 mg tablet Take 15 mg by mouth every morning. ocrelizumab (OCREVUS) 30 mg/mL soln injection 10 mL. Cholecalciferol, Vitamin D3, (VITAMIN D) 25 mcg (1,000 unit) cap Take 1,000 Units by mouth once daily. cyanocobalamin (VITAMIN B-12) 1,000 mcg tab Take 1,000 mcg by mouth once daily. ocrelizumab (OCREVUS INTRAVENOUS) Inject 600 mg intravenously once every 6 months. amitriptyline (ELAVIL) 50 mg tablet Take 25-50 mg qhs (Patient taking differently: 10 mg two times a day. Take 25-50 mg qhs) multivitamin tablet Take 1 tablet by mouth once daily. REVIEW OF SYSTEMS: GENERAL: No weight loss or malaise MUSCULOSKELETAL: see HPI NEURO: No history of headaches, syncope, paralysis, seizures or tremors Patient Entered Questionnaires 09/05/2023 Spine Questions Pain Location: Upper back/torso Pain Duration: 6 months - 1 year Pain over last 6 months: At least half the days in the past 6 months Symptoms from neck/cervical spine: Yes Employment Status: Disabled for reasons other than back pain Involved in law suit/legal claim: No 09/05/2023 Neck Questionnaires Benzel Modified HUMBERTO Score 16 (A lower score indicates increased pain and issues.) PROMIS Score Percentiles 01/15/2022 09/05/2023 Physical Health Physical Function Percentile 7 1 (more content not included)...[facility]04-19-2024 History of Present illness Narrative* Katerin Mccoy PA-C - 09/06/2023 9:41 AM EDT SPINE SURGERY OUTPATIENT CONSULT This is a virtual visit using [employer] Zoom Video Visit. It required patient- provider interaction for the medical decision making as documented below. I have communicated my name and active licensure. The patient's identity and physical location wereverified at the time of this visit. Either the patient or their legal account services representative has been informed of the risks and benefits of -- and alternatives to -- treatment through a remote evaluation andconsents to proceed with the evaluation remotely. SERVICE DATE: 09/06/2023 PCP: Valdez Acosta MD REFERRING PROVIDER: Jessica Clarke [facility] [id number] Consult requested for an opinion regarding the evaluation and treatment of neck pain. My final impression and recommendations will be communicated back to the requesting physician by way of the shared medical record or letter via US mail. SUBJECTIVE Yamilka Vasquez is a 53 year old female CHIEF COMPLAINT: left arm weakness HISTORY OF PRESENT ILLNESS PRECIPITATING EVENT: None DURATION OF SYMPTOMS: Greater Than 6 Weeks Seen virtually. Long standing hx of neck pain but she describes a new left arm weakness which started in April without any incident or event. She denies any pain in the arm that prevents her from using it she just feel like the arm is a stone . Describes being unable to lift the arm over head or lift it out to pick something up off the table. Numbness throughout the left hand. No decline with dexterity or balance. No dermatomal radiation of seth. Neck pain is the only pain she describes today. Working with pain management regarding neck pain in the past. PT in the past as well. Works with [email or web address] for her MS. Saw an outside orthopedic who said he did not feel it was the shoulder. ACTIVE PROBLEM LIST Adjustment Disorder With Mixed Anxiety and Depressed Mood Multiple Sclerosis (Hcc) Research Exam PAST MEDICAL HISTORY Diagnosis Date Depressive disorder, not elsewhere classified Hypertension MS (multiple sclerosis) (HCC) Pain in joint, multiple sites Unspecified sleep apnea PAST SURGICAL HISTORY Procedure Laterality Date CARPAL TUNNEL bilateral LAPS TX ECTOPIC PREG W/O SALPING&/OOPHORECTOMY FAMILY HISTORY Problem Relation Age of Onset Stroke Mother Hypertension Mother Thyroid Mother Arthritis Mother rheumatoid. Cataract Mother Heart Father Cancer Father colon? Thyroid Maternal Grandmother Cataract Sister Diabetes Sister None Other no ms Diabetes Brother Diabetes Brother Diabetes Sister other (heavy smoker) Sister Alcohol abuse Brother heavy smoker Alcohol abuse Brother Cancer Brother unsure what kind Accidental Brother other (lung disease) Brother heavy smoker No Known Problems Daughter No Known Problems Son Social History Tobacco Use Smoking status: Former Packs/day: 1.00 Years: 20.00 Additional pack years: 0.00 Total pack years: 20.00 Types: Cigarettes Quit date: 12/13/2016 Years since quittin.7 Smokeless tobacco: Never Tobacco comments: plans to try to quit at some point but not ready. Substance Use Topics Alcohol use: Yes Comment: rare Drug use: No ALLERGIES No Known Allergies MEDICATIONS: albuterol HFA (PROVENTIL HFA, VENTOLIN HFA) 90 mcg/actuation inhaler INHALE 2 PUFFS BY MOUTH EVERY 6 HOURS NEEDED FOR WHEEZING FOR SHORTNESS OF BREATH FLUoxetine (PROZAC) 20 mg capsule Daily meloxicam (MOBIC) 15 mg tablet Take 15 mg by mouth every morning. ocrelizumab (OCREVUS) 30 mg/mL soln injection 10 mL. Cholecalciferol, Vitamin D3, (VITAMIN D) 25 mcg (1,000 unit) cap Take 1,000 Units by mouth once daily. cyanocobalamin (VITAMIN B-12) 1,000 mcg tab Take 1,000 mcg by mouth once daily. ocrelizumab (OCREVUS INTRAVENOUS) Inject 600 mg intravenously once every 6 months. amitriptyline (ELAVIL) 50 mg tablet Take 25-50 mg qhs (Patient taking differently: 10 mg two times a day. Take 25-50 mg qhs) multivitamin tablet Take 1 tablet by mouth once daily. REVIEW OF SYSTEMS: GENERAL: No weight loss or malaise MUSCULOSKELETAL: see HPI NEURO: No history of headaches, syncope, paralysis, seizures or tremors Patient Entered Questionnaires 09/05/2023 Spine Questions Pain Location: Upper back/torso Pain Duration: 6 months - 1 year Pain over last 6 months: At least half the days in the past 6 months Symptoms from neck/cervical spine: Yes Employment Status: Disabled for reasons other than back pain Involved in law suit/legal claim: No 09/05/2023 Neck Questionnaires Benzel Modified HUMBERTO Score 16 (A lower score indicates increased pain and issues.) PROMIS Score Percentiles 01/15/2022 09/05/2023 Physical Health Physical Function Percentile 7 1 Sleep Percentile 58 Fatigue Percentile 14 18* Pain Interference Percentile 12 01/15/2022 09/05/2023 PROMIS SOCIAL ROLE SCORE Social Role Satisfaction Percentile 24* 16* 01/15/2022 05/01/2023 09/05/2023 PROMIS Global Health Scale Physical Health Percentile 4 15 4 Mental Health Percentile 5 19* 19* Percentiles provide an indication of how the patient's score ranks in relation to the general population. Higher percentile rankings indicate better function/quality of life. 50th percentile is the average of the general population and indicates half of respondents had a worse score. Descriptive Summary for PROMIS Physical Function T-score = 27 (Percentile 1) Unable - Do chores such as vacuuming or yard work. Much difficulty - Run errands and shop. Much difficulty - Walk about the house. Depression Screenin09/15/2021 05/01/2023 09/05/2023 PHQ-9 Score 11 6 12 09/15/2021 05/01/2023 09/05/2023 PHQ-9 Self-harm Question Question 9 Not at all Not at all Not at all PHQ-9 Self-Harm (Item 9) response options: 0 Not at all 1 Several days 2 More than half the days 3 Nearly every day PHQ-9 Levels: 0-4 No to mild depression 5-9 Mild depression 10-14 Moderate depression 15-19 Moderately severe depression 20-27 Severe depression OBJECTIVE: PHYSICAL EXAM LMP 06/18/2012 Virtual visit Unable to lift the left arm over head. Unable to reach her arm out to grab something off the table. NEURO TESTS: None DATA REVIEW [facility] records independently reviewed ASSESSMENT/PLAN (R28.473) Left arm weakness (primary encounter diagnosis) Virtual consult regarding cervical concerns. Long standing hx of severe neck pain. Discussed that neck pain is not an indication for surgical intervention. She describes main concern of left arm weakness which started in April without any incident or event. Describes inability to lift the arm over head or reach out to grab something. Evaluated by outside orthopedic who said it was her cervical spine and not her shoulder. Only had an X-Ray of the shoulder. We discussed how possible rotator cuff pathology could be contributing. Her cervical MRI does not show significant nerve compression to explain such a severe weakness. No dermatomal distribution of pain. All neck pain. She has noticed the left hand is numb but no imbalance or declining dexterity. Atypical presentation for myelopathy but I would recommend a repeat MRI. MRI from April with some artifact which makes it hard to see the actual severity of the stenosis at C3-4 and C4-5. Radiologist called it mild but it looks like it may be compressive. Compared MRI from 2011 and at that time she was only a small amount of fluid around the cord so it has likely progressed. EMG also ordered given atypical presentation. Based on the results she may need a shoulder MRI as well. Cervical flex/ext XR Repeat cervical MRI EMG: bilateral arms The majority of the visit was spent counseling and/or coordinating care for the patient. Total faceto face time was 45 minutes. SIGNATURE: Katerin Mccoy PA-C PATIENT NAME: Yamilka Vasquez DATE: September 06, 2023 TIME: 9:41 AM PAGER: documented in this encounterCorey Hospital04-09-2024 NoteHNO ID: [id number] Author: ANISHA SANCHEZ PA-C Service: ? Author Type: Physician Boat Hoist Operator Helper Type: Progress Notes Filed: 08/27/2023 11:37 Note Text: C/o Neck pain, upper back pain, bilateral arm pain, left arm numbness. CMT: -PT pending Cervical MRI REPORT: C2-C3: There is no disc herniation or central canal narrowing. There is mild right facet and uncovertebral joint hypertrophy with mild right neural foraminal narrowing. The left neural foramen is unremarkable. C3-C4: There is a 2 mm disc osteophyte complex compressing the thecal sac and abutting the cord with mild narrowing of the central canal. There is moderate right facet and uncovertebral joint hypertrophy with severe right neural foraminal narrowing. The left neural foramen is within normal limits. C4-C5: There is a 2 mm disc bulge compressing the thecal sac and mildly upon the cord without narrowing of the central canal. The right neural foramen is unremarkable. There is mild left facet and uncovertebral joint hypertrophy with mild left neural foraminal narrowing. C5-C6: There is a less than 2 mm disc bulge indenting the thecal sac without narrowing of the central canal. There is mild left facet and uncovertebral joint hypertrophy with mild left neural foraminal narrowing. The right neural foramen is unremarkable. C6-C7: There is a 2 mm disc bulge flattening the thecal sac without narrowing of the central canal. There is no neural foraminal narrowing. C7-T1: There is no disc herniation, central canal narrowing or neural foraminal narrowing. New Patient appt with first available surgical DIANE. In person or virtually. Patient to upload imaging prior to VV or bring imaging to appointment. Does not appear to be any urgent findings. She would likely benefit from ongoing conservative management. BMI 47.78 [facility] History of Present illness Narrative* Anisha Sanchez PA-C - 08/27/2023 11:34 AM EDT C/o Neck pain, upper back pain, bilateral arm pain, left arm numbness. CMT: -PT pending Cervical MRI REPORT: C2-C3: There is no disc herniation or central canal narrowing. There is mild right facet and uncovertebral joint hypertrophy with mild right neural foraminal narrowing. The left neural foramen is unremarkable. C3-C4: There is a 2 mm disc osteophyte complex compressing the thecal sac and abutting the cord with mild narrowing of the central canal. There is moderate right facet and uncovertebral joint hypertrophy with severe right neural foraminal narrowing. The left neural foramen is within normal limits. C4-C5: There is a 2 mm disc bulge compressing the thecal sac and mildly upon the cord without narrowing of the central canal. The right neural foramen is unremarkable. There is mild left facet and uncovertebral joint hypertrophy with mild left neural foraminal narrowing. C5-C6: There is a less than 2 mm disc bulge indenting the thecal sac without narrowing of the central canal. There is mild left facet and uncovertebral joint hypertrophy with mild left neural foraminal narrowing. The right neural foramen is unremarkable. C6-C7: There is a 2 mm disc bulge flattening the thecal sac without narrowing of the central canal.There is no neural foraminal narrowing. C7-T1: There is no disc herniation, central canal narrowing or neural foraminal narrowing. New Patient appt with first available surgical DIANE. In person or virtually. Patient to upload imaging prior to VV or bring imaging to appointment. Does not appear to be any urgent findings. She would likely benefit from ongoing conservative management. BMI 47.78 Anisha Sanchez PA-C * Rajat Hanson P - 08/22/2023 1:43 PM EDT Patient name: Yamilka Vasquez Are you being referred by a Center for Spine Health Provider or Pain Management Provider at [facility]? No If answer is YES please schedule directly with surgeon, triage does not need to be completed. Is this a self-referral No If not, who is the Referring Provider Jessica Clarke PA-C Is this a 2nd opinion from another spine surgeon? No Were you offered surgery? No MRI/CT/myelogram within 12 months? Yes If NO , please refer to medical spine or PCP to complete above imaging, triage does not need to be completed If YES, please ask for the name/address of the facility where the MRI/CT/myelogram was completed: [facility] Address: [address] [place] [address] MRI/CT/myelogram viewable in [facility]: Yes If not, please provide [phone] to fax in imaging reports for review. Also, please inform patient to hand carry imaging disc to appointment. XR (spine) within 12 months: Yes If YES, please ask for the name/address of the facility where the XR was completed: Same Dr. Merc[facility]'s patients: Have you had previous EMG/Nerve Conduction Study, Ultrasound, or MRI for thesesame symptoms? If YES, please ask for the name/address of the facility where they were completed: Requested provider (First and Last name): [facility] Are you interested in a virtual visit if offered? No 1. Where are you having symptoms related to this visit? Neck pain Upper back pain Arm pain bilateral Numbness Arm (L) Back pain Yes Leg pain No Arm pain Yes Neck pain Yes 2. Are you having any of the following symptoms: Difficulty walking No Numbness Yes Weakness No Trouble using your hands? No 3. Have you had any injections or physical therapy in the last 12 months? Yes If YES then please ask for the name/address of the facility where the injections and/or physical therapy was completed PT Ordered Have you tried any other kinds of non-surgical treatments in the last 12 months? (For example: NSAIDS, muscle relaxants, analgesics, oral steroids, Chiropractor, Acupuncture): No 4. Are you currently taking daily prescribed narcotic medications for your current symptoms (For example Oxycodone, Hydrocodone, Tramadol, Morphine, Other)? No 5. Have you had previous spinal surgery for this same symptoms? No If YES please ask for the name of facility/address of where the surgery was completed: Additional Comments [phone] (Home Phone) documented in this encounterCorey Hospital04-04-2024 NoteHNO ID: [id number] Author: ?, ?, ? Service: ? Author Type: ? Type: Progress Notes Filed: 08/27/2023 11:37 Note Text: Patient name: Yamilka Vasquez Are you being referred by a Center for Spine Health Provider or Pain Management Provider at [facility]? No If answer is YES please schedule directly with surgeon, triage does not need to be completed. Is this a self-referral No If not, who is the Referring Provider Jessica Clarke PA-C Is this a 2nd opinion from another spine surgeon? No Were you offered surgery? No MRI/CT/myelogram within 12 months? Yes If NO , please refer to medical spine or PCP to complete above imaging, triage does not need to be completed If YES,? please ask for the name/address of the facility where the MRI/CT/myelogram was completed: [facility] Address: [address] [place] [address] MRI/CT/myelogram viewable in Epic: Yes If not, please provide [phone] to fax in imaging reports for review. Also, please inform patient to hand carry imaging disc to appointment. XR (spine) within 12 months: Yes If YES,? please ask for the name/address of the facility where the XR was completed: Same Dr. Mercado's patients: Have you had previous EMG/Nerve Conduction Study, Ultrasound, or MRI for these same symptoms? If YES,? please ask for the name/address of the facility where they were completed: Requested provider (First and Last name): [facility] Are you interested in a virtual visit if offered? No 1. Where are you having symptoms related to this visit? Neck pain Upper back pain Arm pain bilateral Numbness Arm (L) Back pain Yes Leg pain No Arm pain Yes Neck pain Yes 2. Are you having any of the following symptoms: Difficulty walking No Numbness Yes Weakness No Trouble using your hands? No 3. Have you had any injections or physical therapy in the last 12 months? Yes If YES then please ask for the name/address of the facility where the injections and/or physical therapy was completed PT Ordered Have you tried any other kinds of non-surgical treatments in the last 12 months? (For example: NSAIDS, muscle relaxants, analgesics, oral steroids, Chiropractor, Acupuncture): No 4. Are you currently taking daily prescribed narcotic medications for your current symptoms (For example Oxycodone, Hydrocodone, Tramadol, Morphine, Other)? No 5. Have you had previous spinal surgery for this same symptoms? No If YES? please ask for the name of facility/address of where the surgery was completed: Additional Comments [phone] (Home Phone)[facility]04-03-2024 Miscellaneous Notes* Telephone Encounter - Renuka Ellison - 08/21/2023 4:17 PM EDT [place] Call Name of caller : Yamilka Vasquez Relationship to patient: Self Return call phone number : [phone] Reason for call : Other : Brief description of concern : Patient is calling and very upset because she needs to see a Spine Surgeon and she was set up twice with Spine Pain Mgt and already been through Pain Mgt and she said she is in a lot of pain and needs to see a Spine Surgeon. Can you help get her scheduled with the correct area. I did tell her [facility]. Please call to discuss further. documented in this encounterCorey Hospital02-28-2024 Miscellaneous Notes* Telephone Encounter - Elizabeth Victoria RN - 07/17/2023 9:04 AM EST Called patient, no answer. Message left indicating [employer] message would be sent with reason for call and phone number to return call to office for any additional questions. Elizabeth Victoria RN * Telephone Encounter - Elizabeth Victoria RN - 07/16/2023 2:20 PM EST Called patient, no answer. Message left to return call to office when able. Elizabeth Victoria RN * Telephone Encounter - Jessica Clarke PA-C - 07/16/2023 1:08 PM EST She only needs brain MRI since c-spine MRI was completed locally outside [facility] in April. Orders already placed * Telephone Encounter - Anjelica Alba - 07/15/2023 3:18 PM EST [place] Call Name of caller : Steffanie Relationship to patient: Caregiver Return call phone number : appointments Reason for call : Order for MRI needed for Brain and Cervical [facility] History of Present illness Narrative* Paris Toledo DO - 07/10/2023 6:00 PM EST [facility] Initial Evaluation July 10, 2023 This appointment was requested by Jessica Clarke PA-C, for my medical opinion regarding the evaluation and management of the patient's Yamilka Vasquez problems, and my final recommendations will be communicated to the requesting health care provider by way of the shared medical record for internal providers or letter via the [employer] for external providers. SUBJECTIVE: Yamilka Vasquez a 53 year old presents to [facility], accompanied by self only, was referred by Jessica Clarke PA-C, for an initial evaluation for neck. The pain is located in the neck and radiates to bilateral lower extremities along anterior aspect to the level of fingers more so the right Distribution: left sided neck and shoulder and arms are greater pain Started several years ago, was not directly related to injury/trauma, and symptoms have been worsening. Characterized as aching Currently the pain is a rated at a 10 on the right side and a 7 on the left side Worst pain score is rated at 10 on a scale of 0-10. Best pain score is rated at 7 on a scale of 0-10. Aggravated by ADL's. Mitigated by Ice . Current treatments and response: Medical marijuana little relief ( sleep) Mobic (-) relief Ice (+) relief Response to previous treatments: Several injections several years ago temporary relief (MS) PT several years ago (+) relief [facility] [place] Alcohol Abuse - No Drug Abuse - No Current Anticoagulant Therapy: No Sleep Disturbance: Yes: Difficulty falling asleep. and Difficulty staying asleep. PAST MEDICAL HISTORY Diagnosis Date Depressive disorder, not elsewhere classified Hypertension MS (multiple sclerosis) (HCC) Pain in joint, multiple sites Unspecified sleep apnea PAST SURGICAL HISTORY Procedure Laterality Date CARPAL TUNNEL bilateral LAPS TX ECTOPIC PREG W/O SALPING&/OOPHORECTOMY Social History Tobacco Use Smoking status: Former Packs/day: 1.00 Years: 20.00 Additional pack years: 0.00 Total pack years: 20.00 Types: Cigarettes Quit date: 12/13/2016 Years since quittin.5 Smokeless tobacco: Never Tobacco comments: plans to try to quit at some point but not ready. Substance Use Topics Alcohol use: Yes Comment: rare Drug use: No FAMILY HISTORY Problem Relation Age of Onset Stroke Mother Hypertension Mother Thyroid Mother Arthritis Mother rheumatoid. Cataract Mother Heart Father Cancer Father colon? Thyroid Maternal Grandmother Cataract Sister Diabetes Sister None Other no ms Diabetes Brother Diabetes Brother Diabetes Sister other (heavy smoker) Sister Alcohol abuse Brother heavy smoker Alcohol abuse Brother Cancer Brother unsure what kind Accidental Brother other (lung disease) Brother heavy smoker No Known Problems Daughter No Known Problems Son ALLERGIES No Known Allergies Current Outpatient Medications Medication Sig albuterol HFA (PROVENTIL HFA, VENTOLIN HFA) 90 mcg/actuation inhaler INHALE 2 PUFFS BY MOUTH EVERY 6 HOURS NEEDED FOR WHEEZING FOR SHORTNESS OF BREATH FLUoxetine (PROZAC) 20 mg capsule Daily meloxicam (MOBIC) 15 mg tablet Take 15 mg by mouth every morning. ocrelizumab (OCREVUS) 30 mg/mL soln injection 10 mL. Cholecalciferol, Vitamin D3, (VITAMIN D) 25 mcg (1,000 unit) cap Take 1,000 Units by mouth once daily. cyanocobalamin (VITAMIN B-12) 1,000 mcg tab Take 1,000 mcg by mouth once daily. multivitamin tablet Take 1 tablet by mouth once daily. ocrelizumab (OCREVUS INTRAVENOUS) Inject 600 mg intravenously once every 6 months. amitriptyline (ELAVIL) 50 mg tablet Take 25-50 mg qhs (Patient taking differently: 10 mg two times a day. Take 25-50 mg qhs) No current facility-administered medications for this visit. Review of Symptoms: GENERAL:No weight loss, malaise or fevers., SEE HPI HEENT:Negative for frequent or significant headaches, No changes in hearing or vision, no nose bleeds or other nasal problems NECK:Cervical RESPIRATORY: Negative for cough, wheezing or shortness of breath. CARDIOVASCULAR: Negative for chest pain, leg swelling and palpitations GASTROINTESTINAL: Negative for abdominal discomfort, blood in stools or black stools or change in bowel habits GENITOURINARY: No history of dysuria, frequency or incontinence CLINICAL RESEARCH ANALYST: Negative for abnormal vaginal bleeding, abnormal vaginal discharge MUSCULOSKELETAL: Negative for joint pain or swelling, back pain or muscle pain. NEUROLOGIC:Negative for focal numbness or weakness, headaches and dizziness or syncope. SKIN:Negative for lesions, rash, and itching. PSYCHIATRIC: Negative for sleep disturbance, mood disorder and recent psychosocial stressors. HEMATOLOGIC/LYMPHATIC/IMMUNOLOGIC:Negative for prolonged bleeding, bruising easily or swollen nodes. ENDOCRINE: Negative for cold or heat intolerance, polyuria, polydipsia and goiter. The remainder of the ROS was negative. PREVIOUS TREATMENTS LASTING SIX WEEKS IN THE LAST SIX MONTHS Active conservative therapy lasting 6 weeks in the last six months (see below) 1. Physical therapy: 2. Home exercise program after PT: 3. Occupational therapy: No 4. A physician supervised home exercise program (HEP): No 5. Train Gateman: No Passive conservative therapy lasting 6 weeks in the last six months (see below) 1. Medical devises: No 2. Acupuncture: No 3. Tens unit: No 4. Prescription pain medication: 5. NSAIDS: No Do you feel safe at home? Yes Risk assessment at risk due to fall: Unsteady gait Rachael Parada MA July 10, 2023 The subjective information, including chief complaint, past medical history and review of systems, was explored in detail with the patient and edited as needed and is complete. Paris Toledo DO July 10, 2023 Physical Examination: Pulse 89 Ht 5' 6 (1.68m) Wt 296 lb (134.3kg) SpO2 97% LMP 06/18/2012 BMI 47.80 kg/(m^2). General:well appearing, alert, and in no acute distress Skin: skin color, texture, turgor normal, no rashes or lesions HEENT: normocephalic, atraumatic, sclera non-icteric Cardiovascular: Regular rate and rhythm Lungs: Respirations even and non-labored. GI: Soft, non-tender, non-distended. : not examined Musculoskeletal: Neck: Tenderness over the cervical spine, Tenderness over the bilateral cervical paraspinal muscles, Spurling sign negative Back: No pain on palpation of the lumbar spine. Full ROM without reproducible pain. Straight leg raising test negative bilaterally. Extremities: all joints Full ROM -with pain Neurological: Mental Status: alert and oriented x 3 Cranial Nerves: Not examined Reflexes: Deep tendon reflexes are 2+ all throughout. Motor Strength: Motor strength and tone are 5/5 all throughout. Sensory: Sensation was intact to light touch all throughout. Gait: Normal. MRI 05/09/2023 Cervical There is no acute fracture or subluxation. There is no loss of vertebral body height. There is straightening of lordotic curvature of the cervical spine. There is intervertebral disc desiccation and narrowing at every level. The bone marrow signal is within normal limits. The cervical cord is normal in course and caliber without signal abnormality. The visualized portions of the posterior fossa are within normal limits There is no prevertebral soft tissue swelling. C2-C3: There is no disc herniation or central canal narrowing. There is mild right facet and uncovertebral joint hypertrophy with mild right neural foraminal narrowing. The left neural foramen is unremarkable. C3-C4: There is a 2 mm disc osteophyte complex compressing the thecal sac and abutting the cord with mild narrowing of the central canal. There is moderate right facet and uncovertebral joint hypertrophy with severe right neural foraminal narrowing. The left neural foramen is within normal limits. C4-C5: There is a 2 mm disc bulge compressing the thecal sac and mildly upon the cord without narrowing of the central canal. The right neural foramen is unremarkable. There is mild left facet and uncovertebral joint hypertrophy with mild left neural foraminal narrowing. C5-C6: There is a less than 2 mm disc bulge indenting the thecal sac without narrowing of the central canal. There is mild left facet and uncovertebral joint hypertrophy with mild left neural foraminal narrowing. The right neural foramen is unremarkable. C6-C7: There is a 2 mm disc bulge flattening the thecal sac without narrowing of the central canal.There is no neural foraminal narrowing. C7-T1: There is no disc herniation, central canal narrowing or neural foraminal narrowing. IMPRESSION: There is straightening of the lordotic curvature of the cervical spine which may be secondary to positioning versus muscle spasm. There is mild multilevel spondylosis. OARRS website checked and validated. All prescriptions have been APPROPRIATELY filled. No suspicious activity was identified. - July 10, 2023 by Laura Valencia MD HPI & ASSESSMENT: Laura Valencia MD PGY5 was present during the interview and physical exam. Yamilka Vasquez is a 53 year old female former smoker (2.5 packs per day for 25 years) with HTN, COPD, Multiple Sclerosis presents with progressively worsening chronic neck pain (10+ years). The pain starts in the posterior low midline and radiates to the bilateral arms (R>L) along an ulnar nervedistribution. The pain came about insidiously without any inciting events (trauma, accidents, surger ies). The pain is described as electric shock-like and intermittent in nature. She denies difficulty gripping objects and reports no weakness. She has had previous neck injections 10 years ago and cannot recall the type of injections she has had. She denies any red flag symptoms including weight loss, fevers, chills, night time awakening of pain, bowel bladder incontinence, saddle anesthesia, progressive numbness or weakness. We discussed that if these symptoms should arise she should seek emergency treatment. On physical exam, the patient exhibits marked tenderness to palpation of the lower midline cervicalspine, paraspinous muscles, and bilateral trapezius muscles. The patient has a negative spurling test bilaterally. On MRI of the cervical spine on 05/09/23, at C3-C4: There is a 2 mm disc osteophyte complex compressing the thecal sac and abutting the cord with mild narrowing of the central canal. There is moderate right facet and uncovertebral joint hypertrophy with severe right neural foraminal narrowing. The left neural foramen is within normal limits. Otherwise, there is a mild broad disc bulge from C3-C7 without any significant narrowing of the central canal. Based on clinical evaluation and physical examination, the patient's presentation is consistent with cervical radiculitis. However, there is a discordance between the radiologic finding and her presentation as she describes a ulnar nerve distribution of symptoms. This could be likely related to nerve root contributions to the ulnar nerve. At this time, the patient would like to pursue conservative medical management with physical therapy. She will also discuss with her neurologist about starting a gabapentinoid or TCA. We can subsequently evaluate her for a cervical epidural or refer her to neurosurgery. (M50.10) Cervical disc disorder with radiculopathy (primary encounter diagnosis) (M48.02) Cervical stenosis of spine (M54.2, G89.29) Chronic neck pain PLAN: 1) Referral to physical therapy 2) Consider Cervical Epidural in the future 3) Patient will discuss with her neurologist about starting Lyrica or Duloxetine. 4) RTC in 8 weeks The above plan and management options were discussed at length with patient. Patient is in agreement with the above and verbalized understanding. Thank you Jessica Clarke PA-C for allowing me to participate in Yamilka Vasquez's care. I spent a total of 45 minutes on the date of the service which included preparing to see the patient, [id number] patient care, completing clinical documentation, performing a medically appropriate examination, counseling and educating the patient/family/caregiver, ordering medications, tests, or p rocedures, and communicating with other HCPs (not separately reported). Paris Toledo DO July 10, 2023 [facility] NoteHNO ID: [id number] Author: PARIS TOLEDO DO Service: ? Author Type: Physician Type: Progress Notes Filed: 07/12/2023 11:26 Note Text: [facility] Initial Evaluation July 10, 2023 This appointment was requested by Jessica Clarke PA-C, for my medical opinion regarding the evaluation and management of the patient's Yamilka Vasquez problems, and my final recommendations will be communicated to the requesting health care provider by way of the shared medical record for internal providers or letter via the [employer] for external providers. SUBJECTIVE: Yamilka Vasquez a 53 year old presents to [facility], accompanied by self only, was referred by Jessica Clarke PA-C, for an initial evaluation for neck. The pain is located in the neck and radiates to bilateral lower extremities along anterior aspect to the level of fingers more so the right Distribution: left sided neck and shoulder and arms are greater pain Started several years ago, was not directly related to injury/trauma, and symptoms have been worsening. Characterized as aching Currently the pain is a rated at a 10 on the right side and a 7 on the left side Worst pain score is rated at 10 on a scale of 0-10. Best pain score is rated at 7 on a scale of 0-10. Aggravated by ADL's. Mitigated by Ice . Current treatments and response: Medical marijuana little relief ( sleep) Mobic (-) relief Ice (+) relief Response to previous treatments: Several injections several years ago temporary relief (MS) PT several years ago (+) relief [facility] Alcohol Abuse - No Drug Abuse - No Current Anticoagulant Therapy: No Sleep Disturbance: Yes: Difficulty falling asleep. and Difficulty staying asleep. PAST MEDICAL HISTORY Diagnosis Date Depressive disorder, not elsewhere classified Hypertension MS (multiple sclerosis) (HCC) Pain in joint, multiple sites Unspecified sleep apnea PAST SURGICAL HISTORY Procedure Laterality Date CARPAL TUNNEL bilateral LAPS TX ECTOPIC PREG W/O SALPINGAND/OOPHORECTOMY Social History Tobacco Use Smoking status: Former Packs/day: 1.00 Years: 20.00 Additional pack years: 0.00 Total pack years: 20.00 Types: Cigarettes Quit date: 12/13/2016 Years since quittin.5 Smokeless tobacco: Never Tobacco comments: plans to try to quit at some point but not ready. Substance Use Topics Alcohol use: Yes Comment: rare Drug use: No FAMILY HISTORY Problem Relation Age of Onset Stroke Mother Hypertension Mother Thyroid Mother Arthritis Mother rheumatoid. Cataract Mother Heart Father Cancer Father colon? Thyroid Maternal Grandmother Cataract Sister Diabetes Sister None Other no ms Diabetes Brother Diabetes Brother Diabetes Sister other (heavy smoker) Sister Alcohol abuse Brother heavy smoker Alcohol abuse Brother Cancer Brother unsure what kind Accidental Brother other (lung disease) Brother heavy smoker No Known Problems Daughter No Known Problems Son ALLERGIES No Known Allergies Current Outpatient Medications Medication Sig albuterol HFA (PROVENTIL HFA, VENTOLIN HFA) 90 mcg/actuation inhaler INHALE 2 PUFFS BY MOUTH EVERY 6 HOURS NEEDED FOR WHEEZING FOR SHORTNESS OF BREATH FLUoxetine (PROZAC) 20 mg capsule Daily meloxicam (MOBIC) 15 mg tablet Take 15 mg by mouth every morning. ocrelizumab (OCREVUS) 30 mg/mL soln injection 10 mL. Cholecalciferol, Vitamin D3, (VITAMIN D) 25 mcg (1,000 unit) cap Take 1,000 Units by mouth once daily. cyanocobalamin (VITAMIN B-12) 1,000 mcg tab Take 1,000 mcg by mouth once daily. multivitamin tablet Take 1 tablet by mouth once daily. ocrelizumab (OCREVUS INTRAVENOUS) Inject 600 mg intravenously once every 6 months. amitriptyline (ELAVIL) 50 mg tablet Take 25-50 mg qhs (Patient taking differently: 10 mg two times a day. Take 25-50 mg qhs) No current facility-administered medications for this visit. Review of Symptoms: GENERAL:No weight loss, malaise or fevers., SEE HPI HEENT:Negative for frequent or significant headaches, No changes in hearing or vision, no nose bleeds or other nasal problems NECK:Cervical RESPIRATORY: Negative for cough, wheezing or shortness of breath. CARDIOVASCULAR: Negative for chest pain, leg swelling and palpitations GASTROINTESTINAL: Negative for abdominal discomfort, blood in stools or black stools or change in bowel habits GENITOURINARY: No history of dysuria, frequency or incontinence CLINICAL RESEARCH ANALYST: Negative for abnormal vaginal bleeding, abnormal vaginal discharge MUSCULOSKELETAL: Negative for joint pain or swelling, back pain or muscle pain. NEUROLOGIC:Negative for focal numbness or weakness, headaches and dizziness or syncope. SKIN:Negative for lesions, rash, and itching. PSYCHIATRIC: Negative for sleep disturbance, mood disorder and recent psychosocial stressors. [place] (more content not included)...[facility]02-07-2024 History of Present illness Narrative* Shaikh Jonn MD - 06/26/2023 12:25 PM EST Associated Problem(s): Non-recurrent acute suppurative otitis media of left ear without spontaneousrupture of tympanic membrane Left sided suppurative otitis media on exam - TM is intact. Likely the underlying reason that resulted in COPD exacerbation. Called in Augmentin for the patient. * Shaikh Jonn MD - 06/26/2023 12:24 PM ESTAssociated Problem(s): COPD with exacerbation (CMS/HCC) Patient reports cough, SOB, wheezing, chest congestion, tightness x 1 week. No fever, chills, ear pain, discharge Former smoker and was told that she has COPD in 2017 based on PFTs. I could not locate her old PFTsresults but it seems like she had moderate COPD as around the same time, moderate COPD was added toher diagnosis list by her previous PCP. She has no respiratory distress and is not hypoxic. Will treat her for COPD exacerbation with PO prednisone, benzonatate as needed for cough. Will also order Augmentin for left suppurative otitis media. CXR ordered to r/o Pneumonia. PFTs ordered - schedule after 4-6 weeks and not while acutely ill. Follow up with Kristin, her PCP after PFT in 2 months. Patient instructed to go to ED if worsening SOB, wheezing and/or respiratory symptoms despite using medications prescribed today. She was also asked to use Ventolin inhaler q4-6 regularly until her acute symptoms are better. * Shaikh Jonn MD - 06/26/2023 11:46 AM ESTAssociated Problem(s): Multiple sclerosis (CMS/HCC) Patient follows up with Neurology, on Ocrevus. No neurological symptoms. Stable. * Shaikh Jonn MD - 06/26/2023 11:45 AM ESTAssociated Problem(s): Anxiety and depression (CMS/HCC) On Lexapro, stable mood. No SI/HI. * Shaikh Jonn MD - 06/26/2023 11:45 AM ESTAssociated Problem(s): Primary hypertension (CMS/HCC) Not on any medications currently. At goal without treatment. Recommended home BP monitoring and instructed to call office if persistently elevated BP above 140/90 * Shaikh Jonn MD - 06/26/2023 11:30 AM EST Subjective Patient ID: Yamilka Vasquez is a 53 y.o. female who presents for URI. URI This is a new problem. The current episode started in the past 7 days. The problem has been gradually worsening. There has been no fever. Associated symptoms include chest pain, congestion, coughing,a sore throat and wheezing. Pertinent negatives include no abdominal pain, diarrhea, dysuria, ear pain, headaches, joint pain, joint swelling, nausea, neck pain, plugged ear sensation, rash, rhinorrhea, sinus pain, sneezing, swollen glands or vomiting. She has tried nothing for the symptoms. The treatment provided no relief. Patient reports cough, wheezing, SOB x 1 week. She is a former smoker and quit in 2015. She had PFTs in 2017 and was told that she has COPD but she is not on any maintenance inhaler. She has albuterol inhaler at home that she uses as needed. Current Outpatient Medications on File Prior to Visit Medication Sig Dispense Refill albuterol HFA (Ventolin HFA) 90 mcg/act inhaler Inhale 2 puffs every 6 (six) hours if needed for wheezing or shortness of breath 18 g 1 escitalopram (Lexapro) 10 MG tablet Take 1 tablet (10 mg) by mouth in the morning. 90 tablet 1 meloxicam (Mobic) 15 MG tablet Take 1 tablet (15 mg) by mouth in the morning. With food.. 30 tablet2 ocrelizumab (Ocrevus) 300 MG/10ML solution 10 mL if needed (twice a year for MS) No current facility-administered medications on file prior to visit. No Known Allergies Review of System All systems negative except as mentioned in HPI. Visit Vitals BP 136/80 (BP Location: Right arm, Patient Position: Sitting, BP Cuff Size: Large adult) Pulse 77 Temp 98.6 F (Tympanic) Ht 5' 5 Wt 289 lb SpO2 96% BMI 48.09 kg/m Smoking Status Former BSA 2.45 m @LABRESULTS@ No images are attached to the encounter. Objective Morbidly obese, appears ill and tired. Reports cough, SOB, and wheezing. Physical Exam General: Appears sick, wearing a mask. Morbidly obese. HEENT: AT/NC. Right ear - normal exam. Left ear - opaque TM, thick purulent fluid behind TM. Hyperemic oropharyngeal mucosa. Resp: Normal RR, no respiratory distress. Expiratory wheezing -generalized. Prolonged expiratory phase. Diminished lung sounds at bases. CVS: Normal HR, No mumur noted. Neuro: AAOX 3, moving all extremities. Psych: Calm, co operative, no HI/SI. Assessment/Plan Problem List Items Addressed This Visit Primary hypertension (CMS/HCC) Not on any medications currently. At goal without treatment. Recommended home BP monitoring and instructed to call office if persistently elevated BP above 140/90 Anxiety and depression (CMS/HCC) On Lexapro, stable mood. No SI/HI. Multiple sclerosis (CMS/HCC) - Primary Patient follows up with Neurology, on Ocrevus. No neurological symptoms. Stable. COPD with exacerbation (CMS/HCC) Patient reports cough, SOB, wheezing, chest congestion, tightness x 1 week. No fever, chills, ear pain, discharge Former smoker and was told that she has COPD in 2017 based on PFTs. I could not locate her old PFTsresults but it seems like she had moderate COPD as around the same time, moderate COPD was added toher diagnosis list by her previous PCP. She has no respiratory distress and is not hypoxic. Will treat her for COPD exacerbation with PO prednisone, benzonatate as needed for cough. Will also order Augmentin for left suppurative otitis media. CXR ordered to r/o Pneumonia. PFTs ordered - schedule after 4-6 weeks and not while acutely ill. Follow up with Kristin, her PCP after PFT in 2 months. Patient instructed to go to ED if worsening SOB, wheezing and/or respiratory symptoms despite using medications prescribed today. She was also asked to use Ventolin inhaler q4-6 regularly until her acute symptoms are better. Relevant Medications predniSONE (Deltasone) 20 MG tablet amoxicillin-clavulanate (Augmentin) 875-125 MG tablet benzonatate (Tessalon Perles) 100 MG capsule Other Relevant Orders Pulmonary function testing XR chest 2 views Non-recurrent acute suppurative otitis media of left ear without spontaneous rupture of tympanic membrane Left sided suppurative otitis media on exam - TM is intact. Likely the underlying reason that resulted in COPD exacerbation. Called in Augmentin for the patient. Follow up in about 8 weeks (around 08/21/2023). documented in this encounterPershing [facility] [id number] NoteHNO ID: [id number] Author: She Brand RN Service: ? Author Type: Registered Nurse Type: Progress Notes Filed: 05/22/2023 11:49 AM Note Text: Since your last infusion, have you: Had any major change in your health (including new diagnosis of cancer, COPD or cogestive heart failure? No Been hospitalized? No Had any infections? No Taking antibiotics/antivirals/antifungals for current infection? No Had surgery or do you have upcoming surgery? No Received any live vaccines in the last four weeks? No Worsening GI symptoms/abnormal pain/bloating No In the past 7 days have you had: Fevers/chills/night sweats? No New cough or cold symptoms or sore throat? No Nausea/vomiting/diarrhea? No Unusual swelling of your ankles of feet? No Burning/blood with urination or urinary frequency? No New weakness/numbness/stumbling falls? No New rash or open sores? No No chance of ; pt states she had her tubes tied.[facility]12-14-2023 History of Present illness Narrative* Jessica Clarke PA-C - 05/02/2023 7:30 AM EST Images from the original note were not included. [facility]LE [facility] FOLLOWUP/ESTABLISHED PATIENT VIRTUAL VISIT PRINCIPAL NEUROLOGIC DIAGNOSIS: multiple sclerosis DISEASE SUMMARY Date of onset: October 2011 Date of diagnosis of MS: June 2012 Disease course at onset: Relapsing-Remitting Current disease course: Relapsing-Remitting Previous disease therapies: Tecfidera (02/04/2013 - July 2016) - stopped due to persistent lymphopenia Aubagio August 2016- Apr 2020 Current disease therapy: Ocrevus (08/15/2020 first infusion) Most recent MRI brain: 03/16/22 Most recent MRI cervical spine: 02/10/15 Most recent MRI thoracic spine: NA CSF: NA JCV serology result and date: NA VZV serology result and date: NA AQP4-IgG: NA MOG-IgG: NA CHIEF COMPLAINT: Follow-up on MS disease modifying therapy INTERVAL HISTORY: Usual treating team: Marce/Vince I have communicated my name and active licensure. The patient's identity and physical location wereverified at the time of this visit. Either the patient or their legal account services representative has been informed of the risks and benefits of -- and alternatives to -- treatment through a remote evaluation andconsents to proceed with the evaluation remotely. Today's visit is being completed virtually; pt consented. Accompanied by self. Last seen 03/22/22. Currently taking Ocrevus. Reports 2 indent in skull- off center (shifted to the left), Top of head near the crown - first noticed about 2 weeks ago - denies pain/tenderness - denies previous cyst/infection - denies known head injury No falls or injuries Denies headaches out of the norm (lightening bolt headaches for years- electrical zaps) Saw PCP yesterday and forgot to mention to her Right shoulder pain - impingement? - going to see ortho again next week - has been taking meloxicam - may need surgery? REVIEW OF SYSTEMS: Mood: PHQ9 responses reviewed and appear below Pain:reviewed on nursing intake documentation Neuro-QoL Functions (higher=better functioning) Flowsheet [facility] Office Visit from 03/22/2022 in [facility] Office Visit from 11/14/2021 in [facility] from 09/15/2021 in [facility] Upper Extremity Domain T Score 32.58 -- 34 Lower Extremity Domain T Score 36.57 -- 37 Cognitive Function Domain T Score 38.32 39 41 Positive Affect Well Being T Score -- -- -- Ability To Participate In Social Roles T Score 29.36 39 43 Satisfaction With Social Roles T Score 40.46 -- 36 Neuro-QoL Symptoms (higher=worse symptoms) Flowsheet [facility] Office Visit from 03/22/2022 in [facility] Office Visit from 11/14/2021 in [facility] from 09/15/2021 in [facility] Sleep Domain T Score 61.04 -- 64 Fatigue Domain T Score 58.38 -- 65 Anxiety Domain T Score 58.73 -- 61 Depression Domain T Score 60.06 58 60 Stigma Domain T Score 58.45 -- 57 Emotional Behavior Dyscontrol T Score -- -- -- PAST HISTORY was reviewed and updated: PAST MEDICAL HISTORY Diagnosis Date Depressive disorder, not elsewhere classified Hypertension MS (multiple sclerosis) (HCC) Pain in joint, multiple sites Unspecified sleep apnea PAST SURGICAL HISTORY Procedure Laterality Date CARPAL TUNNEL bilateral LAPS TX ECTOPIC PREG W/O SALPING&/OOPHORECTOMY MEDICATIONS and ALLERGIES were reviewed and updated. SOCIAL HISTORY was reviewed and updated: Current living situation: At home Current vocational status: On disabiltiy EXAM: General Appearance: well appearing, in no acute distress Mental status evaluation during the interview and examination showed normal level of consciousness,orientation, language, memory, praxis, and higher intellectual function Affect: Normal Speech: normal RESULTS: Monitoring labs: CBC + Diff Component Value Date WBC 6.16 09/18/2021 HB 12.9 09/18/2021 HCT 41.5 09/18/2021 PLT 181 09/18/2021 ABSLYMPH 0.60 (L) 09/18/2021 CMP Component Value Date AST 21 09/18/2021 GLUC 60 (L) 09/18/2021 BUN 10 09/18/2021 CREAT 0.97 (H) 09/18/2021 NA 138 09/18/2021 K 4.0 09/18/2021 CHLOR 102 09/18/2021 ALT 16 09/18/2021 MRI brain: No new brain MRI to review ASSESSMENT: Yamilka Vasquez is a 52 year old female with multiple sclerosis. Patient is on Ocrevus for DMT. Presents today for concern of new head irregularity x 2 weeks without clear cause/injury. Brain MRI ordered and scheduled in June. Denies headaches or new neurological symptoms. Recommend follow-up with PCP to further assess scalp/indentations in person (limited today due to virtual visit). She willobtain labs with PCP as well. PLAN: 1. Continue Ocrevus 2. Labs with PCP 3. MRI - assess for MS stability and skull indentations 4. See PCP for assessment 5. Follow-up in June or sooner if needed I spent a total of 20 minutes on the date of the service which included preparing to see the patient, [id number] patient care, completing clinical documentation, obtaining and/or reviewing separately obtained history, counseling and educating the patient/family/caregiver, ordering medications, manuel ts, or procedures, communicating with other HCPs (not separately reported), and communicating results to the patient/family/caregiver. The patient was discussed with Dr. Escobar prior to appointment. Jessica Clarke PA-C documented in this encounterCorey [facility]12-[facility] NoteHNO ID: [id number] Author: Jessica Clarke PA-C Service: ? Author Type: Physician Boat Hoist Operator Helper Type: Progress Notes Filed: 05/02/2023 5:39 PM Note Text: [facility] MULTIPLE SCLEROSIS FOLLOWUP/ESTABLISHED PATIENT VIRTUAL VISIT PRINCIPAL NEUROLOGIC DIAGNOSIS: multiple sclerosis DISEASE SUMMARY Date of onset: October 2011 Date of diagnosis of MS: June 2012 Disease course at onset: Relapsing-Remitting Current disease course: Relapsing-Remitting Previous disease therapies: Tecfidera (02/04/2013 - July 2016) - stopped due to persistent lymphopenia Aubagio August 2016- Apr 2020 Current disease therapy: Ocrevus (08/15/2020 first infusion) Most recent MRI brain: 03/16/22 Most recent MRI cervical spine: 02/10/15 Most recent MRI thoracic spine: NA CSF: NA JCV serology result and date: NA VZV serology result and date: NA AQP4-IgG: NA MOG-IgG: NA CHIEF COMPLAINT: Follow-up on MS disease modifying therapy INTERVAL HISTORY: Usual treating team: Marce/Vince I have communicated my name and active licensure. The patient's identity and physical location were verified at the time of this visit. Either the patient or their legal account services representative has been informed of the risks and benefits of -- and alternatives to -- treatment through a remote evaluation and consents to proceed with the evaluation remotely. Today's visit is being completed virtually; pt consented. Accompanied by self. Last seen 03/22/22. Currently taking Ocrevus. Reports 2 indent in skull- off center (shifted to the left), Top of head near the crown - first noticed about 2 weeks ago - denies pain/tenderness - denies previous cyst/infection - denies known head injury No falls or injuries Denies headaches out of the norm (lightening bolt headaches for years- electrical zaps) Saw PCP yesterday and forgot to mention to her Right shoulder pain - impingement? - going to see ortho again next week - has been taking meloxicam - may need surgery? REVIEW OF SYSTEMS: Mood: PHQ9 responses reviewed and appear below Pain:reviewed on nursing intake documentation Neuro-QoL Functions (higher=better functioning) Flowsheet Row Office Visit from 03/22/2022 in [facility] Office Visit from 11/14/2021 in [facility] from 09/15/2021 in [facility] Upper Extremity Domain T Score 32.58 -- 34 Lower Extremity Domain T Score 36.57 -- 37 Cognitive Function Domain T Score 38.32 39 41 Positive Affect Well Being T Score -- -- -- Ability To Participate In Social Roles T Score 29.36 39 43 Satisfaction With Social Roles T Score 40.46 -- 36 Neuro-QoL Symptoms (higher=worse symptoms) Flowsheet Row Office Visit from 03/22/2022 in [facility] Office Visit from 11/14/2021 in [facility] from 09/15/2021 in [facility] Sleep Domain T Score 61.04 -- 64 Fatigue Domain T Score 58.38 -- 65 Anxiety Domain T Score 58.73 -- 61 Depression Domain T Score 60.06 58 60 Stigma Domain T Score 58.45 -- 57 Emotional Behavior Dyscontrol T Score -- -- -- PAST HISTORY was reviewed and updated: PAST MEDICAL HISTORY Diagnosis Date Depressive disorder, not elsewhere classified Hypertension MS (multiple sclerosis) (HCC) Pain in joint, multiple sites Unspecified sleep apnea PAST SURGICAL HISTORY Procedure Laterality Date CARPAL TUNNEL bilateral LAPS TX ECTOPIC PREG W/O SALPINGAND/OOPHORECTOMY MEDICATIONS and ALLERGIES were reviewed and updated. SOCIAL HISTORY was reviewed and updated: Current living situation: At home Current vocational status: On disabiltiy EXAM: General Appearance: well appearing, in no acute distress Mental status evaluation during the interview and examination showed normal level of consciousness, orientation, language, memory, praxis, and higher intellectual function Affect: Normal Speech: normal RESULTS: Monitoring labs: CBC + Diff Component Value Date WBC 6.16 09/18/2021 HB 12.9 09/18/2021 HCT 41.5 09/18/2021 PLT 181 09/18/2021 ABSLYMPH 0.60 (L) 09/18/2021 CMP Component Value Date AST 21 09/18/2021 GLUC 60 (L) 09/18/2021 BUN 10 09/18/2021 CREAT 0.97 (H) 09/18/2021 NA 138 09/18/2021 K 4.0 09/18/2021 CHLOR 102 09/18/2021 ALT 16 09/18/2021 MRI brain: No new brain MRI to review ASSESSMENT: Yamilka Vasquez is a 52 year old female with multiple sclerosis. Patient is on Ocrevus for DMT. Presents today for concern of new head irregularity x 2 weeks without clear cause/injury. Brain MRI ordered and scheduled in June. Denies headaches or new neurological symptoms. Recommend follow-up with PCP to further assess scalp/indentations in person (limited today due to virtual visit). She will obtain labs with PCP as well. PLAN: 1. Continue Ocrevus 2. Labs with PCP 3. MRI - assess for MS stability and skull indentations 4. See PCP for assessment 5. Follow-up in June or sooner if needed I spent a total of (more content not included)...[facility] 04-18-2022 Evaluation note* Encounter Date Diagnosis Assessment Notes Treatment Notes Treatment Clinical Notes Mar, Change in bowel function (ICD-10 - R19.4) CONTINUE METAMUCIL DIRECTED RTO 1 YR [employer] Other 11-11-2022 Miscellaneous Notes* Telephone Encounter - Lily Monique - 03/30/2022 2:06 PM EST Patient is calling today and would like to inform that she has a new PCP. Would like to ask that Dr Acosta be removed. She now sees a Dr Kristin Arteaga in [place]. Any questions please call patient at [phone] documented in this encounterCorey Hospital11-03-2022 History of Present illness Narrative* Jessica Clarke PA-C - 03/22/2022 12:40 PM EDT Images from the original note were not included. [facility] MULTIPLE SCLEROSIS FOLLOWUP/ESTABLISHED PATIENT VISIT PRINCIPAL NEUROLOGIC DIAGNOSIS: multiple sclerosis DISEASE SUMMARY Date of onset: October 2011 Date of diagnosis of MS: June 2012 Disease course at onset: Relapsing-Remitting Current disease course: Relapsing-Remitting Previous disease therapies: Tecfidera (02/04/2013 - July 2016) - stopped due to persistent lymphopenia Sandrita August 2016- Apr 2020 Current disease therapy: Ocrevus (08/15/2020 first infusion) Most recent MRI brain: 03/16/22 Most recent MRI cervical spine: 02/10/15 Most recent MRI thoracic spine: NA CSF: NA JCV serology result and date: NA VZV serology result and date: NA AQP4-IgG: NA MOG-IgG: NA CHIEF COMPLAINT: Follow-up on MS disease modifying therapy INTERVAL HISTORY: Usual treating team: Marce/Vince The patient is accompanied by self. The patient was last seen 11/14/21, currently taking Ocrevus. Since the patient's last visit the patient reports overall feeling stable. FCE 01/16/22: V. Conclusion: Based on the criteria that this test assesses, Yamilka Vasquez is not qualified to work under even the least restrictive Dictionary of Occupational Titles (DOT) classification of sedentary physical demands. - got letter yesterday of disability approval Went out to eat a couple weeks ago and hands locked up when at [employer] (Mar 03) Trying to go for walks (uses cane) Has some new friends, which has been helpful Still gets frustrated with limitations SUBJECTIVE & REVIEW OF SYSTEMS: Neuro-QoL Functions (higher=better functioning) Flowsheet [facility] Office Visit from 03/22/2022 in [facility] Office Visit from 11/14/2021 in [facility] from 09/15/2021 in [facility] Upper Extremity Domain T Score 32.58 -- 34 Lower Extremity Domain T Score 36.57 -- 37 Cognitive Function Domain T Score 38.32 39 41 Positive Affect Well Being T Score -- -- -- Ability To Participate In Social Roles T Score 29.36 39 43 Satisfaction With Social Roles T Score 40.46 -- 36 Neuro-QoL Symptoms (higher=worse symptoms) Flowsheet [facility] Office Visit from 03/22/2022 in [facility] Office Visit from 11/14/2021 in [facility] from 09/15/2021 in [facility] Sleep Domain T Score 61.04 -- 64 Fatigue Domain T Score 58.38 -- 65 Anxiety Domain T Score 58.73 -- 61 Depression Domain T Score 60.06 58 60 Stigma Domain T Score 58.45 -- 57 Emotional Behavior Dyscontrol T Score -- -- -- *NeuroQoL is a multi-domain patient-reported quality of life questionnaire. PHQ-9 Flowsheet Row [facility] from 09/15/2021 in [facility] Office Visit from 11/01/[address] [facility] PHQ-9 Score 11 16 *PHQ-9 is a questionnaire for depressive symptoms, with scores 0-4 indicating none, 5-9 mild, 10-14moderate, 15-19 moderately severe, and 20-27 severe symptoms. PROMIS-10 Flowsheet Row OT/PT/Speech Visit from 01/16/2022 in [facility] Occupational Therapy [facility] from 09/15/2021 in [facility] Global Physical Health T Score 32.4 32.4 Global Mental Health T Score 33.8 33.8 0-10 Standard Pain Scale 3 2 *PROMIS-10 is a patient-reported quality of life measure, typically reported as physical and mentaldomains. Here scores are expressed as percentiles, where the lowest possible score is one, the highest possible score is 99, and 50 is average. Refer to patient-entered data. Mood: PHQ9 responses reviewed and appear below Bladder: started on oxybutynin by PCP a couple weeks ago Bowel: frequency, gets sensation to go then hesitancy. Other times incontinence. Pain related to today's visit:reviewed on nursing intake documentation PAST HISTORY was reviewed and updated: PAST MEDICAL HISTORY Diagnosis Date Depressive disorder, not elsewhere classified Hypertension MS (multiple sclerosis) (HCC) Pain in joint, multiple sites Unspecified sleep apnea PAST SURGICAL HISTORY Procedure Laterality Date CARPAL TUNNEL 2004/2005 bilateral LAPS TX ECTOPIC PREG W/O SALPING&/OOPHORECTOMY MEDICATIONS and ALLERGIES were reviewed and updated. SOCIAL HISTORY was reviewed and updated: Social History Tobacco Use Smoking status: Former Packs/day: 1.00 Years: 20.00 Pack years: 20 Types: Cigarettes Quit date: 12/13/2016 Years since quittin.2 Smokeless tobacco: Never Tobacco comments: plans to try to quit at some point but not ready. Living situation: Living at home with assistance Employment Status / Disability: Disabled, permanently or temporarily - March 2022 OBJECTIVE: VITALS & WELLNESS: BP 129/76 Pulse 108 Ht 172.7 cm (5' 8 ) Wt 131.5 kg (290 lb) LMP 06/18/2012 BMI 44.09 kg/m MSPT Performance Tests 03/22/2022 11/01/2020 Processing Speed Total Number Correct 40 32 Low-contrast letter acuity test-2.5 percent opacity 19 29 Low-contrast letter acuity test-100 percent opacity 55 45 Dominant hand - - MDT Left Hand Time 55.52 72.18 MDT Right Hand Time 34.86 61.7 Walking Speed Test (25 feet) 7.09 11.44 EXAM: General Appearance: well appearing, in no acute distress Mental status evaluation during the interview and examination showed Reported difficulties: memory word finding concentration / attention Affect: Normal Extraocular movements: nystagmus Speech: normal Muscle strength (#/5): Right Left Upper Extremity: Deltoids 5 5 Biceps 5 5 Triceps 5 5 Division Manager 5 5 Dorsal interossei 5 5 Lower extremity: Iliopsoas 5 5 Quadriceps 5 5 Hamstrings 5 5 Tibialis anterior 5 5 Gastrocnemius 5 5 Coordination: Upper extremity dexterity and rapid movements: Normal bilaterally Finger-nose: no dysmetria; coordination intact Standing balance: Impaired Standard gait: wide-based, unsteady. Assistive device: independent RESULTS: Monitoring labs: CBC + Diff Component Value Date WBC 6.16 09/18/2021 HB 12.9 09/18/2021 HCT 41.5 09/18/2021 PLT 181 09/18/2021 ABSLYMPH 0.60 (L) 09/18/2021 CMP Component Value Date AST 21 09/18/2021 GLUC 60 (L) 09/18/2021 BUN 10 09/18/2021 CREAT 0.97 (H) 09/18/2021 NA 138 09/18/2021 K 4.0 09/18/2021 CHLOR 102 09/18/2021 ALT 16 09/18/2021 Lab Results Component Value Date JCV Antibody Negative 07/15/2020 JCV Index Value 0.18 07/15/2020 Discrete MRI Results Component Value Date Brain New T2 Lesions None 03/16/2022 Brain Enhancing Lesions None 03/16/2022 ASSESSMENT/PLAN: Yamilka Vasquez is a 51 year old female with Multiple Sclerosis. Patient is on Ocrevus for DMT. Reports good tolerance and compliance. Lab orders provided to complete locally. Brain MRI reviewed and appears stable. Will repeat in 1 year. MRI of the brain and/or spinal cord is being ordered to evaluate for efficacy of multiple sclerosis (MS) disease modifying therapy. Disease activity in MS is often not immediately detectable on history or examination, but is sensitively identified on MRI. If identified, new or active MS lesions on MRI may represent suboptimal response to MS therapy, and would change medical management. Patient approved for disability 2 days ago. Encouraged stretching exercises and continued activity efforts. Continue mood medication management with PCP. Patient Health Education Discussed at Visit: Aerobic exercise, Emotional Health/Wellness, Risks andCommon side effects of MS medications, and Stretching Follow-up: In 6 months at [facility] I spent a total of 30 minutes on the date of the service which included preparing to see the patient, [id number] patient care, completing clinical documentation, obtaining and/or reviewing separately obtained history, performing a medically appropriate examination, counseling and educating the pat ient/family/caregiver, ordering medications, tests, or procedures, and communicating results to thepatient/family/caregiver. Jessica Clarke PA-C The chart was reviewed for possible participation in the following studies:None documented in this encounterCorey Hospital10-18-2022 History of Present illness Narrative* Lizbeth Blandon LPN - 03/06/2022 4:05 PM EDT POPULATION HEALTH NAVIGATION OUTREACH Action/FYI Please schedule wellness exam and mammogram Pt identified by name and : NO Outreach Outcome/Action Please call patient to schedule annual wellness exam and mammogram. Order has been placed. Did you use a PCP flex slot to schedule this appointment? N/A Reason for Outreach Care Gap or Scheduling/Wellness visits Payer: Payor: [facility] MEDICAID / Plan: [facility] COMMUNITY PLAN MEDICAID OF [place] / Product Type: Medicaid / Care Gap Reviewed:: Annual Wellness visit Breast Cancer screening Reminder: Reminder note to check Health Maintenance for items below Health Maintenance items due: HEPATITIS B(1 of 3 - 3-dose series) Never done HIV SCREENING Never done PAP TESTING Never done HPV TESTING Never done MAMMOGRAM Never done COLORECTAL CANCER SCREENING Never done LUNG CANCER SCREENING Never done SHINGRIX VACCINE(1 of 2) Never done DEPRESSION ASSESSMENT Never done COVID-19 VACCINE(3 - Booster for Yeni series) due on 07/13/2021 INFLUENZA(1) due on 01/18/2022 Message Sent to Practice: No Navigation Signature: Lizbeth Blandon LPN March 06, 2022 4:06 PM documented in this encounterCorey Hospital09-26-2022 Miscellaneous Notes* Telephone Encounter - Jaycee Haley - 02/12/2022 9:08 AM EDT Called pt LVM to see about setting up pt and psycology. documented in this encounterCorey Hospital08-30-2022 History of Present illness Narrative* NASIR Smalls - 01/16/2022 1:17 PM EDT [facility] NEURO FUNCTIONAL CAPACITY EVALUATION GENERAL RECORD INFORMATION CURRENT VISIT NUMBER: ONSET:09/15/2021 1st:01/16/2022ert Date:01/16/2022 THERAPISTS NAME: NASIR Smalls INSURANCE TYPE: Payor: [facility] MEDICAID / Plan: [facility] COMMUNITY PLAN MEDICAID / Product Type: Medicaid / REFERRING PROVIDER: Jessica Clarke PA-C PLAN OF CARE: 01/16/2022 Patient identified by name and date: Yes PRINCIPAL NEUROLOGIC DIAGNOSIS: multiple sclerosis DISEASE SUMMARY Date of onset: October 2011 Date of diagnosis of MS: June 2012 Disease course at onset: Relapsing-Remitting Current disease course: Relapsing-Remitting SUBJECTIVE: Yamilka Vasquez is a 51 year old female referred for a Functional Capacity Evaluation bythe health care provider listed above to determine readiness for return to work and suggest reasonable accommodations or to assess vocational ability and potentially assist patient with disability application to Social Security. Current functional limitations: work limitations due to feeling of out of breath; pain; brain fog; fatigue Subjective level of fatigue prior to FCE: 5/10 (0 = full of energy, 10 = too tired to move) Is the patient having any pain? Yes LOCATION: left hip; right hip; left foot PAIN SCALE: 7 on a scale of 0-10 and 4 out of 10 in left foot PAIN CHARACTER: aching and stabbing DURATION: (How long have you had the pain?) 8 months - for hip pain and 2 years - for foot pain FREQUENCY: (How often does the pain occur?) occurs intermittently AGGRAVATING FACTORS: sleeping ALLEVIATING FACTORS: medications - analgesics (0 = no pain, 10 = worst pain you've ever experienced/ER visit) Patient's prior level of function: difficulty with pain in feet and back ~2 years ago; brain fog started in September of 2021 - reports having a TIA (inability to say words); Current status is unchanging Patient / Caregiver Goals: Patient presents today for functional capacity evaluation to assess workreadiness and/or accommodations for safe and independent fulfillment of work duties Social / Living Situation: Yamilka lives with spouse and resides in a duplex home. She has 1 step to manage outside of home. Pt has 1st floor setup with walk-in shower. Current Income derived from: Spouse Home Equipment: cane and shower chair/bench Bracing: None Current exercise program consists of: None Driving: not driving Safety concerns regarding living situations and safety at home: No Falls Assessment: No positive results upon screening. EDUCATION LEVEL: 8th grade EMPLOYMENT: What past or current work accommodations has the patient implemented? 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 atorvastatin (LIPITOR) 40 mg tablet Take 1 tablet by mouth once daily. lisinopril (ZESTRIL, PRINIVIL) 10 mg tablet Take 1 tablet by mouth once daily. ocrelizumab (OCREVUS INTRAVENOUS) Inject 600 mg intravenously once every 6 months. aspirin, enteric coated (ADULT LOW DOSE ASPIRIN) 81 mg EC tablet Take 1 tablet by mouth once daily.(Patient not taking: Reported on 11/01/2020 ) amitriptyline (ELAVIL) 50 mg tablet Take 25-50 mg qhs Cholecalciferol, Vitamin D3, 1,000 unit cap Take 1,000 Units by mouth once daily. (Patient not taking: Reported on 11/01/2020 ) multivitamin tablet Take 1 tablet by mouth once daily. Current Facility-Administered Medications on File Prior to Visit Medication NaCl 0.9% iv infusion diphenhydrAMINE 50 mg injection (BENADRYL) hydrocortisone sodium succinate (PF) 100 mg injection (Solu-CORTEF) EPINEPHrine 1 mg/mL (1 mL) 0.3 mg injection Genito urinary: Bladder: urgency, incontinence, utilizing pads Gastrointestinal: Bowel: Incontinence and Urgency on medication Neuropsychological: Depression: acknowledges some depression, On antidepressant, Memory: Poor short term Concentration: Normal, Trouble multitasking, Losing train of thought, and Trouble finding words Do you have concerns regarding exposure to: Heights? patient has no reservations about ladders or elevated platforms Temperature extremes? Heat causes extreme feelings of being hot; increase fatigue. Cold causes NA. OBJECTIVE MEASURES WITH LEVEL OF FUNCTION: Vital Signs: Blood Pressure:116/57 mmHg Heart Rate:93 bpm Communication:impulsive Range of Motion: Bilateral upper and lower extremities WNL except as indicated. AROM R AROM L Shoulder Abduction WFL WFL Shoulder Flexion WFL WFL Ankle Dorsiflexion WFL WFL STRENGTH: Yamilka Vasquez is right-handed RIGHT LEFT Shoulder Abd 4/5 4/5 Shoulder Flexion 4/5 4/5 Elbow Flexion 5/5 5/5 Elbow extension 5/5 5/5 Wrist flexion 5/5 5/5 Wrist extension 5/5 5/5 Division Manager strength (Myriam position 2) 70 lbs 53 lbs Hip abduction 5/5 5/5 Hip flexion 4-/5 4-/5 Hip extension 5/5 5/5 Knee extension 5/5 5/5 Knee flexion 5/5 5/5 Ankle DF 5/5 5/5 Ankle PF 5/5 5/5 MODIFIED MIGDALIA SCALE: plantar flexor: RT: 0 & LT: 0 knee extensors: RT: 0 & LT: 0 knee flexors: RT: 0 & LT: 0 hip adductors: RT: 0 & LT: 0 Scoring 0: No increase in muscle tone 1: Slight increase in muscle tone, with a catch and release or minimal resistance at the end of therange of motion when an affected part(s) is moved in flexion or extension 1+: Slight increase in muscle tone, manifested as a catch, followed by minimal resistance through the remainder (less than half) of the range of motion 2: A marked increase in muscle tone throughout most of the range of motion, but affected part(s) are still easily moved 3: Considerable increase in muscle tone, passive movement difficult 4: Affected part(s) rigid in flexion or extension Rajan Balance Scale: Sit to stand: 4 = able to stand without using hands and stabilize independently Standing unsupported: 4 = able to stand safely 2 minutes Sittin = able to sit safely and securely for 2 minutes Stand to sit: 4 = sits safely with minimal use of hands Transfers: 4 = able to transfer safely with minor use of hands Standing unsupported w/eyes closed: 4 = able to stand 10 seconds safely Standing unsupported w/feet together: 4 = able to place feet together independently and stand for 1minute safely Reaching forward: 4 = can reach forward confidently > 10 inches Picking up object from floor: 4 = able to picker/puller object safely and easily Looking over shoulder: 4 = looks behind from both sides and weight shifts well Turn 360 degrees: 4 = able to turn 360* safely in 4 seconds or less Alternate foot on step: 4 = able to stand independently and safely and complete 8 steps in 20 seconds Tandem standin = able to place foot ahead of other independently and hold 30 seconds Standing on le = unable to try or needs assist to prevent fall Total: 51/56 on 01/16/2022 >45 Safe ambulation, no assistive device >35 Safe ambulation, with assistive device A score greater than or equal to 45 identifies individuals who are not at risk for falling Dynamic Gait Index: Gait level surface: 3 Normal - walks 20' no assistive device, good speed, no imbalance, normal gaitpattern Change in gait speed: 3 Normal - able to smoothly change walking speed without loss of balance or gait deviations. Shows a significant difference in walking speeds between normal, fast and slow speeds Gait and horizontal head turns: 2 Mild impairment - performs R/L head turns smooth with slight change in gait velocity, minor disruption to smooth gait path, or uses assistive device Gait with vertical head turns: 2 Mild impairment - performs up/down head turns smooth with slight change in gait velocity, minor disruption to smooth gait path, or uses assistive device Gait and pivot turns: 3 Normal - pivot turns safely within 3 secs, stops quickly, no loss of balance Step over obstacle: 3 Normal - is able to step over box without changing speed, no evidence of imbalance Step around obstacles: 3 Normal - able to walk around cones safely without changing gait speed, no evidence of imbalance Steps: 2 Mild impairment - alternating feet, must use rail Total: / Scores less than or equal to 19 out of 24 suggest increased fall risk GAIT and Ambulation: Level of assistance: Supervision and stand by assistance with increased fatigue Assistive device used: None Gait deviations noted: Decreased activity tolerance, requiring seated rest breaks after every measure; decrease gait speed Stairs: Required use of hand rails Ramps: WFL 25 Foot Walk: 7.9 seconds on 01/16/2022 Timed Up and Go: 11.34 seconds on 01/16/2022 Norms: Age 50-59: 6.44 +/- 0.17 seconds 6 Minute Walk Test (Modified to 2 Minute Walk Test): 300 feet on 01/16/2022 Note: inability to complete 6 minute walk test and modified to 2 minute walk test. Required standing rest break after going ~125ft and seated rest break at the end of 2 minutes. Pt with c/o dizzinessand shortness of breath and O2 sats at 89 to 93% and HR 125bpm SENSATION: WFL COORDINATION: Nine-Hole peg test: Right 24.13, 23.06 seconds; CV = 0.36563% Left 22.41, 26.54 seconds; CV = 0.23877% Norms for a 51 year old female are: R = 18.0 sec with a standard deviation of 2.5; L = 19.4 sec with a standard deviation of 2.3 AVERAGE PERFORMANCE OF NORMAL FEMALES ON THE NINE HOLE PEG TEST (Time in Seconds) AGE HAND MEAN SD 20-24 R 15.8 2.1 L 17.2 2.4 25-29 R 15.8 2.2 L 17.2 2.1 30-34 R 16.3 1.9 L 17.8 2.0 35-39 R 16.4 1.6 L 17.3 2.0 40-44 R 16.8 2.1 L 18.6 2.8 45-49 R 17.3 2.0 L 18.4 1.9 50-54 R 18.0 2.5 L 20.1 3.0 55-59 R 17.8 2.6 L 19.4 2.3 60-64 R 18.4 2.0 L 20.6 2.2 65-69 R 19.5 2.3 L 21.4 2.7 70-74 R 20.2 2.7 L 22.0 2.7 75+ R 21.5 2.9 L 24.6 4.3 ALL FEMALE R 17.9 2.8 SUBJECTS L 19.6 3.4 HAND TESTS: 5 position Myriam R L pos 1 55 52 pos 2 77 75 pos 3 80 78 pos 4 70 55 pos 5 60 35 YES Valid YES Valid Right legal receptionist best result: 80 lbs; percentile rank = 75 % Left legal receptionist best result: 78 lbs; percentile rank = 90 % Tremors?: No Hand Division Manager Norms: MALE Percentile - lbs. FEMALE Percentile - lbs. AGE HAND 10 25 50 75 90 10 25 50 75 90 20-24 D 91 102 121 150 167 46 57 70 87 95 N 71 84 105 133 150 33 44 61 78 88 25-29 D 78 94 121 144 158 48 58 75 89 97 N 77 90 111 129 139 48 54 64 85 97 30-34 D 70 90 122 152 170 46 58 79 115 137 N 64 81 110 132 145 36 48 68 97 115 35-39 D 76 93 120 155 176 50 59 74 90 99 N 73 88 113 141 157 49 55 66 82 91 40-44 D 84 96 117 147 165 38 50 70 91 103 N 73 88 113 141 157 35 45 62 82 94 45-49 D 65 82 110 138 155 39 48 62 86 100 N 58 74 101 138 160 37 44 56 73 83 50-54 D 79 92 114 137 151 38 49 66 79 87 N 70 82 102 128 143 35 43 57 69 76 55-59 D 59 75 101 134 154 33 42 57 75 86 N 43 58 83 111 128 31 37 47 65 76 60-64 D 51 66 90 119 137 37 44 55 69 77 N 27 46 77 101 116 29 35 46 59 66 Typing Test: Typing test duration: 5 minute(s) Typing Speed: 17 WPM Errors: 4 Adjusted Typing Speed: 16 WPM Result: Slow (Velázquez: 0-24 Slow 25-44 Average 45-60 Fluent 61-80 Fast 81+ Pro) Additional observations: REPETITIVE MOTION TESTS: PRE-TEST PAIN = 4/10 Reachin/20 reps, last 10 in 51 sec. Crepitus: 0/4; Pain: 6/10; Fatigue? 10/10 Bendin/20 reps, last 10 in 36 sec; Pain: 8/10; Fatigue? 9/10 Squattin/20 reps, last 10 in 26 sec. Crepitus: 0/4; Pain 8/10; Fatigue? 8/10 (Crepitus: 0 - no crepitus, 1 - one pop, 2 - minimal popping, 3 - moderate popping, 4 - severe popping) POST-TEST PAIN = 8/10 Note: required seated rest break after reaching motion and lag noted in left arm during test; required seated rest break after bending; O2 checked 92 and HR 122 Vision: reading glasses 20/20-1 on R; 20/30-2 on L with corrective lenses on a Visual Acuity Test STEP TEST: Yamilka Vasquez is asked to step up/down a 6 inch step at a pace of 24 steps/min for 3 minutes. Pre-Test HR: 107 bpm 60 seconds Post Test Blood Pressure 143/98 Heart Rate 120 bpm HR 60 sec Post: Excellent <84 bpm; Very good 85-94 bpm; Fair 95-114; Poor 115- 124; Very Poor >124 Able to complete the 3 minute test? No (47 seconds); Pain = 8/10; Fatigue = 10/10 Observations: able to go up and down 4 steps 2 sets before requiring to sit Lizz's Signs: (+/-) Simulation (axial loading and/or trunk rotation): (-) Regional (sensory and/or weakness): (-) Tenderness (superficial and/or non-anatomic): (-) Distraction: (-) Overreaction: (-) Constant standing/walking test: Yamilka Vasquez is asked to walk 50 feet and stand and complete one page of the questionnaires below. This sequence repeats itself 8 times. PRE TEST FATIGUE RATIN/10; Pain = 8/10 POST TEST FATIGUE RATIN/10; Pain = 10/10 Observations: Able to stand and walk for ~8 minutes until requiring seated rest break QUESTIONNAIRES: Brief Pain Inventory - Short Form: Pain Severity Score = Mean of items 3-6 = 6.25/10 Pain Interference Score = Mean of items 9A-9G (interference of pain with: general activity, mood, walking, normal work, relations, sleep, enjoyment of life) = 6/10 Worst pain score: 10/10; (mild pain (1 - 4), moderate pain ( 5 - 6), severe pain (7 - 10)) Pain drawing = stabbing bilateral shoulders; burning bilateral hips/lower back SOURCING ANALYST-12 = 49/60 Lizz's = 0/5 (positive >=3) Fatigue Severity Scale (FSS) = 6.8/7.00 (People with depression alone score about 4.5, but people with fatigue related to MS, SLE or CFIDS average about 6.5) MFIS: 73/84 PHQ-9: 16/27 (1-4 minimal depression, 5-9 mild, 10-14 moderate, 15-19 moderately severe, 20-27 severe) Symbol Digit Modalities Test: Raw Score: 38/39 ; Interpretation: The score is - 1.0 (Scores more than 1.5 standard deviations below the mean for the patient's age and level of education are indicativeof possible cerebral dysfunction) Occasional Material Handling ([facility]) Tests: Unable to complete due to activity tolerance and fatigue ASSESSMENT: YES NO 1. Is the Pain in proportion to Movement Patterns? X 2. Are Movement Patterns consistent with Distraction? X 3. Is Lizz's Non-Organic Signs Low (< 3)? X 4. Is Pain Drawing Scored Low (< 3)? X 5 . Is the 5 position MYRIAM valid? (allow one outlier B) X 6. Are MYRIAM position 2 CV's < 15% X 7. Are 9HPT result CV's < 15% X Is the test valid? X YES (All yes or <=2 no s ) NO (>=6 No ) EQUIVOCAL (3-5 no ) Yamilka Vasquez was able to complete all aspects of today's exam that were requested by the examiner. The observed behaviors were consistent with the subjective reports and the results of this FCE areconsidered to be valid. There is no evidence of symptom magnification. Disability criteria is based on Social Security Disability Insurance (SSDI) guidelines (revised by [employer]SA in 02/2016). During this functional capacity evaluation, there is evidence of the following: A. Disorganization of motor function in two extremities (see 11.00D1), resulting in an extreme limitation (see 11.00D2) in the ability to stand up from a seated position, balance while standing or walking, or use the upper extremities? YES B. Marked limitation (see 11.00G2) in physical functioning (see 11.00G3a)? YES and in one of the following: Understanding, remembering, or applying information (see 11.00G3b(i))? Interacting with others (see 11.00G3b(ii))? Concentrating, persisting, or maintaining pace (see 11.00G3b(iii))? YES Adapting or managing oneself (see 11.00G3b(iv))? C. Visual impairments with either best corrected vision in the better eye of 20/200 or less, markedcontraction of peripheral visual franks to 10 or less from the point of fixation, or visual efficiency in the better eye of 20% or less? NO Vocational Questions: 1. 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 X Agree Disagree 2. In a work environment, it is anticipated that Yamilka Vasquez would be able to stand/walk while maintaining attention for at least 6 hours per day. Agree X Disagree 3. In a work environment, it is anticipated that Yamilka Vasquez would need to take unscheduled breaks on a daily basis to rest due to her condition, taking her off task more than six minutes per hour. X Agree Disagree 4. In a work environment, it is anticipated that Yamilka Vasquez would need to take multiple unscheduled breaks on a daily basis due to bladder urgency and frequency. X Agree Disagree 5. Yamilka Vasquez s complaints of fatigue are consistent with the neurologic fatigue associated with a diagnosis of multiple sclerosis. X Agree Disagree 6. In a work environment, it is anticipated that Yamilka Vasquez would need to take multiple unscheduled breaks on a daily basis due to chronic and progressive multiple sclerosis fatigue. X Agree Disagree Physical factors that impair Yamilka Vasquez's ability to work include: 1. Gait has evidence of MODERATE impairment and a fall risk 2. Balance has evidence of MODERATE impairment as presented by performance with DGI 3. Standing/walking tolerance has evidence of SEVERE impairment as presented by increase need for rest breaks and changes in vitals 4. Bowel function has MODERATE impairment 5. Bladder function has MODERATE impairment 6. Sensation testing has evidence of NO impairment 7. Fatigue of motor function was assessed during this exam and there is SEVERE impairment noted throughout FCE. 8. Pain is MODERATE 9. Vision is WFL 10. Coordination of the upper extremities is MINIMALLY impaired Yamilka Vasquez completed a variety of questionnaires today as a part of this exam. Based on the PHQ-9 Yamilka Vasquez has a moderate level of depression. Based on the MFIS and the FSS Yamilka Vasquez has a severe level of fatigue. This was consistent with the observations during this exam. Based on the multiple pain questionnaires Yamilka Vasquez experiences moderate pain. The locations of the pain include bilateral hips/low back and shoulders. Current functional abilities are as follows: II. NON-MATERIAL HANDLING ACTIVITIES: Never Infrequent Occasional Frequent Constant SITTING X STANDING X WALKING X BENDING X REACHING OVERHEAD X SQUATTING X CRAWLING X CLIMBING STAIRS X III. SPECIAL ACTIVITIES (Y/N) ARM CONTROLS FOOT CONTROLS LEFT N N RIGHT N N COMMENTS: IV. HAND FUNCTION (Y/N) ASSEMBLY SIMPLE GRASP FINE WORK HI-SPD LO-SPD LEFT Y N N N RIGHT Y N N N Typing: Slow V. Conclusion: Based on the criteria that this test assesses, Yamilka Vasquez is not qualified to work under even the least restrictive Dictionary of Occupational Titles (DOT) classification of sedentary physical demands. Based on the findings during this FCE, I also recommend: 1. Physical Therapy to address gait and balance 2. Neuropsychology to assess cognition 3. Psychology to address reported depression Thank you for the opportunity to assist you in the evaluation of this patient. Treatment and Billing: Total time: 120 minutes Total Units: 8 units: 113-127 mins Physical Performance Test (37626) Skilled Intervention: Neurologically-based functional capacity evaluation specific to the diagnosisof Multiple Sclerosis. Proper administration and selection of physical performance test based on clinical presentation, deficits, and needs. Jojo Pickard OTR/L [facility]* Encounter Date Diagnosis Assessment Notes Treatment Notes Treatment Clinical Notes Nov, Change in bowel function (ICD-10 - R19.8) ENCOURAGED METAMUCIL CAPSULES DAILY. Nov, Tubular adenoma (ICD-10 - D36.9) WILL REPEAT COLON IN 5 YEARS Nov, Diverticulosis (ICD-10 - K57.90) Nov, Hemorrhoids (ICD-10 - K64.9) [employer] Other 06-28-2022 History of Present illness Narrative* Sarthak Escobar MD, PhD - 11/14/2021 8:31 AM EDT Images from the original note were not included. 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 The patient was last seen 09/15/21, currently taking Ocrevus. Since the patient's last visit the patient reports overall feeling stable. Last 6-10 months, joint pain, back pain Stiffness Hot weather has been worse for pain Will go back and see ortho. Mom had RA Still taking duxoletine and amitriptyline for mood/pain. Doesn't think it has helped much. [place] Vision worse - wearing cheaters but hasn't seen eye doctor in years. Difficult to read fine print - sometimes if words in blue on TV, they flicker . feels like a bunny jumping across my vision sometimes Will see PCP (Kristin) again in December SUBJECTIVE & REVIEW OF SYSTEMS: Neuro-QoL Functions (higher=better functioning) Office Visit from 11/14/2021 in [facility] from 09/15/2021 in [facility] OfficeVisit from 11/01/2020 in [facility] Upper Extremity Domain T Score 34 30 Lower Extremity Domain T Score 37 40 Cognitive Function Domain T Score 39 41 36 Positive Affect Well Being T Score Ability To Participate In Social Roles T Score 39 43 46 Satisfaction With Social Roles T Score 36 39 Neuro-QoL Symptoms (higher=worse symptoms) Office Visit from 11/14/2021 in [facility] from 09/15/2021 in [facility] OfficeVisit from 11/01/2020 in [facility] Sleep Domain T Score 64 64 Fatigue Domain T Score 65 69 Anxiety Domain T Score 61 65 Depression Domain T Score 58 60 66 Stigma Domain T Score 57 63 Emotional Behavior Dyscontrol T Score *NeuroQoL is a multi-domain patient-reported quality of life questionnaire. PHQ-9 [facility] from 09/15/2021 in [facility] Office Visit from 11/01/2020 in [facility] PHQ-9 Score 11 16 *PHQ-9 is a questionnaire for depressive symptoms, with scores 0-4 indicating none, 5-9 mild, 10-14moderate, 15-19 moderately severe, and 20-27 severe symptoms. PROMIS-10 [facility] from 09/15/2021 in [facility] Office Visit from 11/01/2020 in [facility] Global Physical Health T Score 32.4 32.4 Global Mental Health T Score 33.8 36.3 0-10 Standard Pain Scale 2 3 *PROMIS-10 is a patient-reported quality of life measure, typically reported as physical and mentaldomains. Here scores are expressed as percentiles, where the lowest possible score is one, the highest possible score is 99, and 50 is average. Refer to patient-entered data. Mood: PHQ9 responses reviewed and appear below Bowel: saw GI. Had colonoscopy. Itching rectally. Pain related to today's visit:reviewed on nursing intake documentation PAST HISTORY was reviewed and updated: PAST MEDICAL HISTORY Diagnosis Date Depressive disorder, not elsewhere classified Hypertension MS (multiple sclerosis) (HCC) Pain in joint, multiple sites Unspecified sleep apnea PAST SURGICAL HISTORY Procedure Laterality Date CARPAL TUNNEL bilateral LAPS TX ECTOPIC PREG W/O SALPING&/OOPHORECTOMY MEDICATIONS and ALLERGIES were reviewed and updated. SOCIAL HISTORY was reviewed and updated: Social History Tobacco Use Smoking status: Former Smoker Packs/day: 1.00 Years: 20.00 Pack years: 20 Types: Cigarettes Quit date: 12/13/2016 Years since quittin.9 Smokeless tobacco: Never Used Tobacco comment: plans to try to quit at some point but not ready. Living situation: Living at home with assistance Employment Status / Disability: Unemployed OBJECTIVE: VITALS & WELLNESS: BP 112/68 Pulse 88 Ht 174 cm (5' 8.5 ) Wt 132 kg (291 lb) LMP 06/18/2012 BMI 43.60 kg/m MSPT Performance Tests 11/01/2020 07/31/2019 Processing Speed Total Number Correct 32 48 Low-contrast letter acuity test-2.5 percent opacity 29 39 Low-contrast letter acuity test-100 percent opacity 45 56 Dominant hand - - MDT Left Hand Time 72.18 33.59 MDT Right Hand Time 61.7 30.27 Walking Speed Test (25 feet) 11.44 6.54 EXAM: General Appearance: well appearing, in no acute distress Mental status evaluation during the interview and examination showed Reported difficulties: memory word finding concentration / attention Affect: Normal Extraocular movements: nystagmus Speech: normal Muscle strength (#/5): Right Left Upper Extremity: Deltoids 5 5 Biceps 5 5 Triceps 5 5 Division Manager 5 5 Dorsal interossei 5 5 Lower extremity: Iliopsoas 5 5 Quadriceps 5 5 Hamstrings 5 5 Tibialis anterior 5 5 Gastrocnemius 5 5 Coordination: Upper extremity dexterity and rapid movements: Normal bilaterally Finger-nose: no dysmetria; coordination intact Standing balance: Impaired Standard gait: wide-based, unsteady. Assistive device: independent RESULTS: Monitoring labs: Component Latest Ref Rng & Units 09/18/2021 WBC 3.70 - 11.00 k/uL 6.16 RBC 3.90 - 5.20 m/uL 4.40 Hemoglobin 11.5 - 15.5 g/dL 12.9 Hematocrit 36.0 - 46.0 % 41.5 MCV 80.0 - 100.0 fL 94.3 MCH 26.0 - 34.0 pg 29.3 MCHC 30.5 - 36.0 g/dL 31.1 RDW-CV 11.5 - 15.0 % 14.2 Platelet Count 150 - 400 k/uL 181 MPV 9.0 - 12.7 fL 12.5 Neut% % 75.1 Abs Neut (ANC) 1.45 - 7.50 k/uL 4.62 Lymph% % 9.7 Abs Lymph 1.00 - 4.00 k/uL 0.60 (L) Karnes% % 12.0 Abs Karnes <0.87 k/uL 0.74 Eosin% % 2.4 Abs Eosin <0.46 k/uL 0.15 Baso% % 0.5 Abs Baso <0.11 k/uL 0.03 Immature Gran % % 0.3 IMMATURE GRANS (ABS) <0.10 k/uL <0.03 NRBC /100 WBC 0.0 Absolute nRBC <0.01 k/uL <0.01 DTYPE Auto Protein, Total 6.3 - 8.0 g/dL 7.0 Albumin 3.9 - 4.9 g/dL 3.8 (L) Calcium 8.5 - 10.2 mg/dL 9.0 Bilirubin, Total 0.2 - 1.3 mg/dL 0.4 Alkaline Phosphatase 34 - 123 U/L 114 AST 13 - 35 U/L 21 ALT 7 - 38 U/L 16 Glucose 74 - 99 mg/dL 60 (L) BUN 7 - 21 mg/dL 10 Creatinine 0.58 - 0.96 mg/dL 0.97 (H) Sodium 136 - 144 mmol/L 138 Potassium 3.7 - 5.1 mmol/L 4.0 Chloride 97 - 105 mmol/L 102 CO2 22 - 30 mmol/L 25 Anion Gap 9 - 18 mmol/L 11 eGFR >=60 mL/min/1.73m 70 Cholesterol, Total <200 mg/dL 142 Triglyceride <150 mg/dL 157 (H) HDL Cholesterol >39 mg/dL 39 (L) Non HDL Cholesterol <130 mg/dL 103 Fasting Time hrs 14 hours VLDL Cholesterol <30 mg/dL 31 (H) TC:HDL Ratio <5.10 3.64 LDL Cholesterol <100 mg/dL 72 LDL:HDL Ratio <2.54 1.85 IgG 700-1,600 mg/dL 1,123 IgA 70 - 400 mg/dL 338 IgM 40 - 230 mg/dL 57 CD3-CD19+ B Cell % 5 - 22 % 12 CD3-CD19+ B Cell # 75 - 660 cells/uL 80 Lab Results Component Value Date JCV Antibody Negative 07/15/2020 JCV Index Value 0.18 07/15/2020 MRI brain dated 11/14/21 compared to 11/08/20: IMPRESSION: Multiple intracranial white matter lesions compatible with multiple sclerosis. One new T2 lesions and no new enhancing lesions. No significant parenchymal volume loss. Other Significant Intracranial Findings: New T2/FLAIR hyperintense lesion in the left frontal operculum as described is slightly atypical for demyelination given significant cortical involvement, butgiven other cortical plaques, this is still the most likely possibility. Consider short-term follow-up to document stability. ASSESSMENT/PLAN: Yamilka Vasquez is a 51 year old female with Multiple Sclerosis. Patient is on Ocrevus for DMT. Reports good tolerance and compliance. Last infusion 09/18/21. Labs reviewed and acceptable. Brain MRI from today reviewed and shows 1 new lesion that is slightly atypical for demyelination. Reviewed with Dr. Escobar and will check JCV today and will perform 7T brain MRI in 3 months at [facility]. Will hold next infusion until reviewing MRI. MRI of the brain and/or spinal cord is being ordered to evaluate for efficacy of multiple sclerosis (MS) disease modifying therapy and evidence of PML. Disease activity in MS is often not immediately detectable on history or examination, but is sensitively identified on MRI. If identified, new or active MS lesions on MRI may represent suboptimal response to MS therapy, and would change medical management. Patient reports pain all over - mostly joint pain. She will follow-up with PCP and orthopedics. Rx for PT provided as well for gait eval. She has FCE scheduled for December for disability. Discussed mood remains poor - denies SI. Encouraged consideration of therapy/psychology. Continues to work with PCP for medication management. Discussed seeing ophthalmology/optometry for eye exam. 1. Hold Ocrevus until repeat 7T MRI 2. JCV test today 3. 7T MRI in 3 months 4. PT 5. Psychology 6. Eye exam Patient Health Education Discussed at Visit: Emotional Health/Wellness, Risks and Common side effects of MS medications and Stretching Follow-up: In 3 months at [facility] with [facility] I spent a total of 40 minutes on the date of the service which included preparing to see the patient, [id number] patient care, completing clinical documentation, obtaining and/or reviewing separately obtained history, performing a medically appropriate examination, counseling and educating the pat ient/family/caregiver, ordering medications, tests, or procedures, independently interpreting results (not separately reported) and communicating results to the patient/family/caregiver. The patient was discussed with Dr. Escobar. Jessica Clarke PA-C [facility] STAFF PHYSICIAN NOTE OF PERSONAL INVOLVEMENT IN CARE I have reviewed the follow-up note obtained and documented by CLARISSA Montgomery. New left frontal juxtacortical/cortical lesion noted 11/14/21 compared to 11/08/20. Ocrevus started on 03/02/21. Suspect this is a demyelinating lesion that occurred prior to Ocrevus taking effect. As this lesion can also mimic other conditions such as PML while on treatment with DMT, we recommended repeat MRI brain in a shorter interval (3 mo) per neuroradiology recommendations. Will obtain serum JCV as well. Imaging findings and further workup will determine whether Ocrevus will be continued in March 2022. Sarthak Escobar MD, PhD Associate Staff Neurologist [facility] History of Present illness Narrative* Eliazar Alonso, RT(R) - 11/14/2021 7:30 AM EDT Radiology Service Progress Note DATE OF SERVICE: November 14, 2021 TIME: 7:43 AM PATIENT IDENTITY VERIFICATION COMPLETED USING TWO (2) STANDARD IDENTIFIERS: Name and Date of confirmed by patient verbally. FALL SCREENING: Has the patient had 2 falls in the last year or 1 fall with injury or currently using an Ambulatory Assistive Device (Walker, Cane, Wheelchair, Crutches, etc.)? No PATIENT GENDER DATA: Female. status: : No status: NO. PATIENT RELEVANT IMPLANT DATA REVIEWED: Yes ALLERGIES: Reviewed and unchanged CONTRAST ALLERGY: NO. EXAM: MRI - CONTRAST TYPE: GROUP II PERIPHERAL IV DATA: Ambulatory: A peripheral IV was started in the Right antecubital site with a Butterfly: 23 gauge. RADIOLOGY DEPARTMENT: MR; Exam(s) Completed: Head: Multiple Sclerosis SIGNATURE: RT [place](R) PATIENT NAME: Yamilka Vasquez DATE: November 14, 2021 TIME: 7:43 AM documented in this encounter[facility]04[facility]29-[facility] History of Present illness Narrative* Jessica Clarke PA-C - 09/15/2021 11:19 AM EDT Images from the original note were not included. [facility] MULTIPLE SCLEROSIS FOLLOWUP/ESTABLISHED PATIENT VIRTUAL VISIT PRINCIPAL NEUROLOGIC DIAGNOSIS: multiple sclerosis DISEASE SUMMARY Date of onset: October 2011 Date of diagnosis of MS: June 2012 Disease course at onset: Relapsing-Remitting Current disease course: Relapsing-Remitting Previous disease therapies: Tecfidera (02/04/2013 - July 2016) - stopped due to persistent lymphopenia Aubagio August 2016- Apr 2020 Current disease therapy: Ocrevus (08/15/2020 first infusion) Most recent MRI brain: 07/15/2020 Most recent MRI cervical spine: 02/10/15 Most recent MRI thoracic spine: NA CSF: NA JCV serology result and date: NA VZV serology result and date: NA AQP4-IgG: NA MOG-IgG: NA CHIEF COMPLAINT: Follow-up on MS disease modifying therapy INTERVAL HISTORY: Usual treating team: Mary Today's visit is being completed virtually; pt consented. Accompanied by self. Last seen 11/01/20. Currently taking Ocrevus. Next infusion scheduled for 09/18/21 Applied for disability - denied twice. This will be the third time. Has an 8th grade education - head, neck and back hurt all the time. Gets injections but only lasts a couple days - Gained 70 lbs. No energy - mood worse Kristin Gracia is new [employer] PCP - changed anxiety and depression meds - will be changing to duloxetine 30 mg and amitriptyline 10 mg BID regularly Had colonoscopy a couple weeks ago Could feel she was going to have a stroke before it happened. Behind left ear? - intense sharp brain and it felt off Blood pressure has been well-controlled (106/73) - not taking baby aspirin Considering establishing with neurologist locally. Asking about switching infusions to Yoav Morton REVIEW OF SYSTEMS: Mood: PHQ9 responses reviewed and appear below Bladder: colonoscopy recently Pain:reviewed on nursing intake documentation Neuro-QoL Functions (higher=better functioning) Appointment from 09/15/2021 in [facility] Office Visit from 11/01/2020 in [facility] Office Visit from 07/31/2019 in [facility] Upper Extremity Domain T Score 34 30 41.73 Lower Extremity Domain T Score 37 40 41.61 Cognitive Function Domain T Score 41 36 45 Positive Affect Well Being T Score 40.79 Ability To Participate In Social Roles T Score 43 46 39.92 Satisfaction With Social Roles T Score 36 39 43.36 Neuro-QoL Symptoms (higher=worse symptoms) Appointment from 09/15/2021 in [facility] Office Visit from 11/01/2020 in [facility] Office Visit from 07/31/2019 in [facility] Sleep Domain T Score 64 64 64.93 Fatigue Domain T Score 65 69 56.69 Anxiety Domain T Score 61 65 57.66 Depression Domain T Score 60 66 55.31 Stigma Domain T Score 57 63 57.09 Emotional Behavior Dyscontrol T Score 58.31 PAST HISTORY was reviewed and updated: PAST MEDICAL HISTORY Diagnosis Date Depressive disorder, not elsewhere classified Hypertension MS (multiple sclerosis) (HCC) Pain in joint, multiple sites Unspecified sleep apnea PAST SURGICAL HISTORY Procedure Laterality Date CARPAL TUNNEL bilateral RX ECTOP PREG BY LAPAROSCOPE MEDICATIONS and ALLERGIES were reviewed and updated. SOCIAL HISTORY was reviewed and updated: Current living situation: At home Current vocational status: applied for disability EXAM: General Appearance: well appearing, in no acute distress Mental status evaluation during the interview and examination showed normal level of consciousness,orientation, language, memory, praxis, and higher intellectual function. Reports word finding difficulty Affect: Depressed Speech: normal RESULTS: Monitoring labs: CBC + Diff Component Value Date WBC 5.88 07/15/2020 HB 14.0 07/15/2020 HCT 46.0 07/15/2020 PLT 178 07/15/2020 ABSLYMPH 0.81 (L) 07/15/2020 CMP Component Value Date AST 26 07/15/2020 GLUC 84 07/15/2020 BUN 13 07/15/2020 CREAT 0.97 (H) 07/15/2020 NA 145 (H) 07/15/2020 K 4.3 07/15/2020 CHLOR 106 (H) 07/15/2020 ALT 31 07/15/2020 MRI brain: No new brain MRI to review ASSESSMENT: Yamilka Vasquez is a 51 year old female with multiple sclerosis. Patient is on Ocrevus for DMT. Patient will obtain labs with infusion. Recommend updated brain MRI WWO contrast soonest available. MRI of the brain and/or spinal cord is being ordered to evaluate for efficacy of multiple sclerosis (MS)disease modifying therapy. Disease activity in MS is often not immediately detectable on history orexamination, but is sensitively identified on MRI. If identified, new or active MS lesions on MRI may represent suboptimal response to MS therapy, and would change medical management. Reports overallfeeling worse. Has applied for disability for a 3rd time. Recommend FCE with OT. Consider social work consult. Patient considering establishing with neurology locally and will let us know. Continue working with PCP for mood management. Discussed continued stroke prevention measures PLAN: 1. Continue Ocrevus 2. Labs with infusion 3. Brain MRI WWO contrast soonest available 4. Consult OT - FCE at [facility] 5. Continue with PCP as planned I spent a total of 20 minutes on the date of the service which included preparing to see the patient, [id number] patient care, completing clinical documentation, obtaining and/or reviewing separately obtained history, counseling and educating the patient/family/caregiver, ordering medications, manuel ts, or procedures and communicating results to the patient/family/caregiver. Jessica Clarke PA-C documented in this encounterCorey [facility]04-19-2022 Procedure [facility]03-28-2022 Evaluation note* Encounter Date Diagnosis Assessment Notes Treatment Notes Treatment Clinical Notes Jul, Constipation (ICD-10 - K59.00) Jul, Rectal bleeding (ICD-10 - K62.5) Jul, Rectal pain (ICD-10 - K62.89) Sample of Recticare cream given to patient Jul, Change in stool caliber (ICD-10 - R19.4) [employer] Other Evaluation + Plan note Future Appointments Appointment Date:02/10/2024 03:00:00 PM Scheduled Provider: Location:[facility] Appointment Type:Surgery [facility] Evaluation noteNo assessment information [facility] Work Phone: Evaluation note* Diagnosis Multiple sclerosis, relapsing-remitting (HCC) Multiple sclerosis documented in this encounter [facility] note* Diagnosis Multiple sclerosis (HCC)- Primary Multiple sclerosis Multiple sclerosis, relapsing-remitting (HCC) Multiple sclerosis documented in this encounter [facility] noteNo InformationNoboone hospital center AddressReport Other Evaluation note* Diagnosis Multiple sclerosis, relapsing-remitting (HCC) Multiple sclerosis documented in this encounter [facility] note* Diagnosis Multiple sclerosis, relapsing-remitting (HCC)- Primary Multiple sclerosis [facility]* Diagnosis Encounter for screening mammogram for breast cancer [facility]* Diagnosis Multiple sclerosis, relapsing-remitting (HCC) Multiple sclerosis [facility]* Diagnosis Multiple sclerosis (HCC)- Primary Multiple sclerosis [facility]* Diagnosis Multiple sclerosis, relapsing-remitting (HCC)- Primary Multiple sclerosis [facility]* Diagnosis Multiple sclerosis, relapsing-remitting (HCC)- Primary Multiple sclerosis documented in this encounter [facility] note* Diagnosis Encounter for screening mammogram for breast cancer documented in this encounter [facility] note* Diagnosis Multiple sclerosis (HCC)- Primary Multiple sclerosis documented in this encounter [facility] note* Diagnosis Multiple sclerosis (CMS/HCC)- Primary Multiple sclerosis Primary hypertension (CMS/HCC) Unspecified essential hypertension Anxiety and depression (CMS/HCC) COPD with exacerbation (CMS/HCC) Non-recurrent acute suppurative otitis media of left ear without spontaneous rupture of tympanic membrane [facility]* Diagnosis Cervical disc disorder with radiculopathy- Primary Brachial neuritis or radiculitis nos Cervical stenosis of spine Spinal stenosis in cervical region Chronic neck pain Cervicalgia documented in this encounter [facility] note* Diagnosis Multiple sclerosis (HCC)- Primary Multiple sclerosis [facility]* Diagnosis Cervical stenosis of spine- Primary Spinal stenosis in cervical region [facility]* Diagnosis Left arm weakness- Primary Other musculoskeletal symptoms referable to limbs [facility]* Diagnosis Multiple sclerosis (HCC)- Primary Multiple sclerosis Vitamin D deficiency Unspecified vitamin D deficiency [facility]* Diagnosis S/P arthroscopy of left shoulder- Primary documented in this encounter [facility]* Diagnosis S/P arthroscopy of left shoulder documented in this encounter [facility]* Diagnosis Class 3 severe obesity without serious comorbidity with body mass index (BMI) of 45.0 to 49.9 in adult, unspecified obesity type (CMS/HCC)- Primary Anxiety and depression (CMS/HCC) Primary insomnia Persistent disorder of initiating or maintaining sleep Primary hypertension (CMS/HCC) Unspecified essential hypertension Multiple sclerosis (CMS/HCC) Multiple sclerosis Chronic bronchitis, unspecified chronic bronchitis type (CMS/HCC) Encounter for screening mammogram for malignant neoplasm of breast Routine general medical examination at a health care facility Chronic right shoulder pain- Primary Pain in joint, shoulder region Anxiety and depression (CMS/HCC)- Primary Class 3 severe obesity without serious comorbidity with body mass index (BMI) of 45.0 to 49.9 in adult, unspecified obesity type (CMS/HCC) Chronic bronchitis, unspecified chronic bronchitis type (CMS/HCC) 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 Multiple sclerosis (CMS/HCC)- Primary Multiple sclerosis Primary hypertension (CMS/HCC) Unspecified essential hypertension Anxiety and depression (CMS/HCC) COPD with exacerbation (CMS/HCC) Non-recurrent acute suppurative otitis media of left ear without spontaneous rupture of tympanic membrane Chronic bronchitis, unspecified chronic bronchitis type (CMS/HCC)- Primary Contact with and (suspected) exposure to viral hepatitis Non-recurrent acute suppurative otitis media of left ear without spontaneous rupture of tympanic membrane Multiple sclerosis (CMS/HCC) Multiple sclerosis Class 3 severe obesity without serious comorbidity with body mass index (BMI) of 45.0 to 49.9 in adult, unspecified obesity type (CMS/HCC) 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 Mixed incontinence urge and stress (male)(female) Non-recurrent acute suppurative otitis media of left ear without spontaneous rupture of tympanic membrane Chronic bronchitis, unspecified chronic bronchitis type (CMS/HCC) Multiple sclerosis (CMS/HCC) Multiple sclerosis Class 3 severe obesity without serious comorbidity with body mass index (BMI) of 45.0 to 49.9 in adult, unspecified obesity type (CMS/HCC) Anxiety and depression (CMS/HCC)- Primary Chronic bronchitis, unspecified chronic bronchitis type (CMS/HCC) Non-recurrent acute suppurative otitis media of left ear without spontaneous rupture of tympanic membrane Chronic shoulder pain, unspecified laterality Multiple sclerosis (CMS/HCC) Multiple sclerosis Abscess- Primary Cellulitis and abscess of unspecified site Class 3 severe obesity without serious comorbidity with body mass index (BMI) of 45.0 to 49.9 in adult, unspecified obesity type (CMS/HCC) Abnormal weight gain Abnormal CBC Other abnormal blood chemistry Anxiety and depression (CMS/HCC) Contact with and (suspected) exposure to viral hepatitis Hyperlipidemia, acquired (CMS/HCC) Other and unspecified hyperlipidemia Primary hypertension (CMS/HCC) Unspecified essential hypertension Vitamin D deficiency Polyuria Polydipsia Metabolic syndrome Dysmetabolic Syndrome X Primary insomnia Persistent disorder of initiating or maintaining sleep Diverticulitis- Primary Diverticulitis of colon (without mention of hemorrhage) Class 3 severe obesity without serious comorbidity with body mass index (BMI) of 45.0 to 49.9 in adult, unspecified obesity type (CMS/HCC) S/P arthroscopy of left shoulder- Primary [facility]* Diagnosis Class 3 severe obesity without serious comorbidity with body mass index (BMI) of 45.0 to 49.9 in adult, unspecified obesity type (CMS/HCC)- Primary Anxiety and depression (CMS/HCC) Primary insomnia Persistent disorder of initiating or maintaining sleep Primary hypertension (CMS/HCC) Unspecified essential hypertension Multiple sclerosis (CMS/HCC) Multiple sclerosis Chronic bronchitis, unspecified chronic bronchitis type (CMS/HCC) Encounter for screening mammogram for malignant neoplasm of breast Routine general medical examination at a health care facility Chronic right shoulder pain- Primary Pain in joint, shoulder region Anxiety and depression (CMS/HCC)- Primary Class 3 severe obesity without serious comorbidity with body mass index (BMI) of 45.0 to 49.9 in adult, unspecified obesity type (CMS/HCC) Chronic bronchitis, unspecified chronic bronchitis type (CMS/HCC) 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 Multiple sclerosis (CMS/HCC)- Primary Multiple sclerosis Primary hypertension (CMS/HCC) Unspecified essential hypertension Anxiety and depression (CMS/HCC) COPD with exacerbation (CMS/HCC) Non-recurrent acute suppurative otitis media of left ear without spontaneous rupture of tympanic membrane Chronic bronchitis, unspecified chronic bronchitis type (CMS/HCC)- Primary Contact with and (suspected) exposure to viral hepatitis Non-recurrent acute suppurative otitis media of left ear without spontaneous rupture of tympanic membrane Multiple sclerosis (CMS/HCC) Multiple sclerosis Class 3 severe obesity without serious comorbidity with body mass index (BMI) of 45.0 to 49.9 in adult, unspecified obesity type (CMS/HCC) 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 Mixed incontinence urge and stress (male)(female) Non-recurrent acute suppurative otitis media of left ear without spontaneous rupture of tympanic membrane Chronic bronchitis, unspecified chronic bronchitis type (CMS/HCC) Multiple sclerosis (CMS/HCC) Multiple sclerosis Class 3 severe obesity without serious comorbidity with body mass index (BMI) of 45.0 to 49.9 in adult, unspecified obesity type (CMS/HCC) Anxiety and depression (CMS/HCC)- Primary Chronic bronchitis, unspecified chronic bronchitis type (CMS/HCC) Non-recurrent acute suppurative otitis media of left ear without spontaneous rupture of tympanic membrane Chronic shoulder pain, unspecified laterality Multiple sclerosis (CMS/HCC) Multiple sclerosis Abscess- Primary Cellulitis and abscess of unspecified site Class 3 severe obesity without serious comorbidity with body mass index (BMI) of 45.0 to 49.9 in adult, unspecified obesity type (CMS/HCC) Abnormal weight gain Abnormal CBC Other abnormal blood chemistry Anxiety and depression (CMS/HCC) Contact with and (suspected) exposure to viral hepatitis Hyperlipidemia, acquired (CMS/HCC) Other and unspecified hyperlipidemia Primary hypertension (CMS/HCC) Unspecified essential hypertension Vitamin D deficiency Polyuria Polydipsia Metabolic syndrome Dysmetabolic Syndrome X Primary insomnia Persistent disorder of initiating or maintaining sleep Diverticulitis- Primary Diverticulitis of colon (without mention of hemorrhage) Class 3 severe obesity without serious comorbidity with body mass index (BMI) of 45.0 to 49.9 in adult, unspecified obesity type (CMS/HCC) Anxiety and depression (CMS/HCC)- Primary Needs flu shot Need for prophylactic vaccination and inoculation against influenza Candidiasis of skin Candidiasis of skin and nails documented in this encounter [facility]* Diagnosis Class 3 severe obesity without serious comorbidity with body mass index (BMI) of 45.0 to 49.9 in adult, unspecified obesity type (CMS/HCC)- Primary Anxiety and depression (CMS/HCC) Primary insomnia Persistent disorder of initiating or maintaining sleep Primary hypertension (CMS/HCC) Unspecified essential hypertension Multiple sclerosis (CMS/HCC) Multiple sclerosis Chronic bronchitis, unspecified chronic bronchitis type (CMS/HCC) Encounter for screening mammogram for malignant neoplasm of breast Routine general medical examination at a health care facility Chronic right shoulder pain- Primary Pain in joint, shoulder region Anxiety and depression (CMS/HCC)- Primary Class 3 severe obesity without serious comorbidity with body mass index (BMI) of 45.0 to 49.9 in adult, unspecified obesity type (CMS/HCC) Chronic bronchitis, unspecified chronic bronchitis type (CMS/HCC) 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 Multiple sclerosis (CMS/HCC)- Primary Multiple sclerosis Primary hypertension (CMS/HCC) Unspecified essential hypertension Anxiety and depression (CMS/HCC) COPD with exacerbation (CMS/HCC) Non-recurrent acute suppurative otitis media of left ear without spontaneous rupture of tympanic membrane Chronic bronchitis, unspecified chronic bronchitis type (CMS/HCC)- Primary Contact with and (suspected) exposure to viral hepatitis Non-recurrent acute suppurative otitis media of left ear without spontaneous rupture of tympanic membrane Multiple sclerosis (CMS/HCC) Multiple sclerosis Class 3 severe obesity without serious comorbidity with body mass index (BMI) of 45.0 to 49.9 in adult, unspecified obesity type (CMS/HCC) 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 Mixed incontinence urge and stress (male)(female) Non-recurrent acute suppurative otitis media of left ear without spontaneous rupture of tympanic membrane Chronic bronchitis, unspecified chronic bronchitis type (CMS/HCC) Multiple sclerosis (CMS/HCC) Multiple sclerosis Class 3 severe obesity without serious comorbidity with body mass index (BMI) of 45.0 to 49.9 in adult, unspecified obesity type (CMS/HCC) Anxiety and depression (CMS/HCC)- Primary Chronic bronchitis, unspecified chronic bronchitis type (CMS/HCC) Non-recurrent acute suppurative otitis media of left ear without spontaneous rupture of tympanic membrane Chronic shoulder pain, unspecified laterality Multiple sclerosis (CMS/HCC) Multiple sclerosis Abscess- Primary Cellulitis and abscess of unspecified site Class 3 severe obesity without serious comorbidity with body mass index (BMI) of 45.0 to 49.9 in adult, unspecified obesity type (CMS/HCC) Abnormal weight gain Abnormal CBC Other abnormal blood chemistry Anxiety and depression (CMS/HCC) Contact with and (suspected) exposure to viral hepatitis Hyperlipidemia, acquired (CMS/HCC) Other and unspecified hyperlipidemia Primary hypertension (CMS/HCC) Unspecified essential hypertension Vitamin D deficiency Polyuria Polydipsia Metabolic syndrome Dysmetabolic Syndrome X Primary insomnia Persistent disorder of initiating or maintaining sleep Diverticulitis- Primary Diverticulitis of colon (without mention of hemorrhage) Class 3 severe obesity without serious comorbidity with body mass index (BMI) of 45.0 to 49.9 in adult, unspecified obesity type (CMS/HCC) Anxiety and depression (CMS/HCC)- Primary Needs flu shot Need for prophylactic vaccination and inoculation against influenza Candidiasis of skin Candidiasis of skin and nails S/P arthroscopy of left shoulder- Primary [facility] Diagnosis Class 3 severe obesity without serious comorbidity with body mass index (BMI) of 45.0 to 49.9 in adult, unspecified obesity type (CMS/HCC)- Primary Anxiety and depression (CMS/HCC) Primary insomnia Persistent disorder of initiating or maintaining sleep Primary hypertension (CMS/HCC) Unspecified essential hypertension Multiple sclerosis (CMS/HCC) Multiple sclerosis Chronic bronchitis, unspecified chronic bronchitis type (CMS/HCC) Encounter for screening mammogram for malignant neoplasm of breast Routine general medical examination at a health care facility Chronic right shoulder pain- Primary Pain in joint, shoulder region Anxiety and depression (CMS/HCC)- Primary Class 3 severe obesity without serious comorbidity with body mass index (BMI) of 45.0 to 49.9 in adult, unspecified obesity type (CMS/HCC) Chronic bronchitis, unspecified chronic bronchitis type (CMS/HCC) 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 Multiple sclerosis (CMS/HCC)- Primary Multiple sclerosis Primary hypertension (CMS/HCC) Unspecified essential hypertension Anxiety and depression (CMS/HCC) COPD with exacerbation (CMS/HCC) Non-recurrent acute suppurative otitis media of left ear without spontaneous rupture of tympanic membrane Chronic bronchitis, unspecified chronic bronchitis type (CMS/HCC)- Primary Contact with and (suspected) exposure to viral hepatitis Non-recurrent acute suppurative otitis media of left ear without spontaneous rupture of tympanic membrane Multiple sclerosis (CMS/HCC) Multiple sclerosis Class 3 severe obesity without serious comorbidity with body mass index (BMI) of 45.0 to 49.9 in adult, unspecified obesity type (CMS/HCC) 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 Mixed incontinence urge and stress (male)(female) Non-recurrent acute suppurative otitis media of left ear without spontaneous rupture of tympanic membrane Chronic bronchitis, unspecified chronic bronchitis type (CMS/HCC) Multiple sclerosis (CMS/HCC) Multiple sclerosis Class 3 severe obesity without serious comorbidity with body mass index (BMI) of 45.0 to 49.9 in adult, unspecified obesity type (CMS/HCC) Anxiety and depression (CMS/HCC)- Primary Chronic bronchitis, unspecified chronic bronchitis type (CMS/HCC) Non-recurrent acute suppurative otitis media of left ear without spontaneous rupture of tympanic membrane Chronic shoulder pain, unspecified laterality Multiple sclerosis (CMS/HCC) Multiple sclerosis Abscess- Primary Cellulitis and abscess of unspecified site Class 3 severe obesity without serious comorbidity with body mass index (BMI) of 45.0 to 49.9 in adult, unspecified obesity type (CMS/HCC) Abnormal weight gain Abnormal CBC Other abnormal blood chemistry Anxiety and depression (CMS/HCC) Contact with and (suspected) exposure to viral hepatitis Hyperlipidemia, acquired (CMS/HCC) Other and unspecified hyperlipidemia Primary hypertension (CMS/HCC) Unspecified essential hypertension Vitamin D deficiency Polyuria Polydipsia Metabolic syndrome Dysmetabolic Syndrome X Primary insomnia Persistent disorder of initiating or maintaining sleep Diverticulitis- Primary Diverticulitis of colon (without mention of hemorrhage) Class 3 severe obesity without serious comorbidity with body mass index (BMI) of 45.0 to 49.9 in adult, unspecified obesity type (CMS/HCC) Anxiety and depression (CMS/HCC)- Primary Needs flu shot Need for prophylactic vaccination and inoculation against influenza Candidiasis of skin Candidiasis of skin and nails Left shoulder pain, unspecified chronicity- Primary S/P arthroscopy of left shoulder documented [facility]* Diagnosis Class 3 severe obesity without serious comorbidity with body mass index (BMI) of 45.0 to 49.9 in adult, unspecified obesity type (CMS/HCC)- Primary Anxiety and depression (CMS/HCC) Primary insomnia Persistent disorder of initiating or maintaining sleep Primary hypertension (CMS/HCC) Unspecified essential hypertension Multiple sclerosis (CMS/HCC) Multiple sclerosis Chronic bronchitis, unspecified chronic bronchitis type (CMS/HCC) Encounter for screening mammogram for malignant neoplasm of breast Routine general medical examination at a health care facility Chronic right shoulder pain- Primary Pain in joint, shoulder region Anxiety and depression (CMS/HCC)- Primary Class 3 severe obesity without serious comorbidity with body mass index (BMI) of 45.0 to 49.9 in adult, unspecified obesity type (CMS/HCC) Chronic bronchitis, unspecified chronic bronchitis type (CMS/HCC) 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 Multiple sclerosis (CMS/HCC)- Primary Multiple sclerosis Primary hypertension (CMS/HCC) Unspecified essential hypertension Anxiety and depression (CMS/HCC) COPD with exacerbation (CMS/HCC) Non-recurrent acute suppurative otitis media of left ear without spontaneous rupture of tympanic membrane Chronic bronchitis, unspecified chronic bronchitis type (CMS/HCC)- Primary Contact with and (suspected) exposure to viral hepatitis Non-recurrent acute suppurative otitis media of left ear without spontaneous rupture of tympanic membrane Multiple sclerosis (CMS/HCC) Multiple sclerosis Class 3 severe obesity without serious comorbidity with body mass index (BMI) of 45.0 to 49.9 in adult, unspecified obesity type (CMS/HCC) 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 Mixed incontinence urge and stress (male)(female) Non-recurrent acute suppurative otitis media of left ear without spontaneous rupture of tympanic membrane Chronic bronchitis, unspecified chronic bronchitis type (CMS/HCC) Multiple sclerosis (CMS/HCC) Multiple sclerosis Class 3 severe obesity without serious comorbidity with body mass index (BMI) of 45.0 to 49.9 in adult, unspecified obesity type (CMS/HCC) Anxiety and depression (CMS/HCC)- Primary Chronic bronchitis, unspecified chronic bronchitis type (CMS/HCC) Non-recurrent acute suppurative otitis media of left ear without spontaneous rupture of tympanic membrane Chronic shoulder pain, unspecified laterality Multiple sclerosis (CMS/HCC) Multiple sclerosis Abscess- Primary Cellulitis and abscess of unspecified site Class 3 severe obesity without serious comorbidity with body mass index (BMI) of 45.0 to 49.9 in adult, unspecified obesity type (CMS/HCC) Abnormal weight gain Abnormal CBC Other abnormal blood chemistry Anxiety and depression (CMS/HCC) Contact with and (suspected) exposure to viral hepatitis Hyperlipidemia, acquired (CMS/HCC) Other and unspecified hyperlipidemia Primary hypertension (CMS/HCC) Unspecified essential hypertension Vitamin D deficiency Polyuria Polydipsia Metabolic syndrome Dysmetabolic Syndrome X Primary insomnia Persistent disorder of initiating or maintaining sleep Diverticulitis- Primary Diverticulitis of colon (without mention of hemorrhage) Class 3 severe obesity without serious comorbidity with body mass index (BMI) of 45.0 to 49.9 in adult, unspecified obesity type (CMS/HCC) Anxiety and depression (CMS/HCC)- Primary Needs flu shot Need for prophylactic vaccination and inoculation against influenza Candidiasis of skin Candidiasis of skin and nails Left shoulder pain, unspecified chronicity- Primary S/P arthroscopy of left shoulder documented [facility]* Diagnosis Class 3 severe obesity without serious comorbidity with body mass index (BMI) of 45.0 to 49.9 in adult, unspecified obesity type (CMS/HCC)- Primary Anxiety and depression (CMS/HCC) Primary insomnia Persistent disorder of initiating or maintaining sleep Primary hypertension (CMS/HCC) Unspecified essential hypertension Multiple sclerosis (CMS/HCC) Multiple sclerosis Chronic bronchitis, unspecified chronic bronchitis type (CMS/HCC) Encounter for screening mammogram for malignant neoplasm of breast Routine general medical examination at a health care facility Chronic right shoulder pain- Primary Pain in joint, shoulder region Anxiety and depression (CMS/HCC)- Primary Class 3 severe obesity without serious comorbidity with body mass index (BMI) of 45.0 to 49.9 in adult, unspecified obesity type (CMS/HCC) Chronic bronchitis, unspecified chronic bronchitis type (CMS/HCC) 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 Multiple sclerosis (CMS/HCC)- Primary Multiple sclerosis Primary hypertension (CMS/HCC) Unspecified essential hypertension Anxiety and depression (CMS/HCC) COPD with exacerbation (CMS/HCC) Non-recurrent acute suppurative otitis media of left ear without spontaneous rupture of tympanic membrane Chronic bronchitis, unspecified chronic bronchitis type (CMS/HCC)- Primary Contact with and (suspected) exposure to viral hepatitis Non-recurrent acute suppurative otitis media of left ear without spontaneous rupture of tympanic membrane Multiple sclerosis (CMS/HCC) Multiple sclerosis Class 3 severe obesity without serious comorbidity with body mass index (BMI) of 45.0 to 49.9 in adult, unspecified obesity type (CMS/HCC) 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 Mixed incontinence urge and stress (male)(female) Non-recurrent acute suppurative otitis media of left ear without spontaneous rupture of tympanic membrane Chronic bronchitis, unspecified chronic bronchitis type (CMS/HCC) Multiple sclerosis (CMS/HCC) Multiple sclerosis Class 3 severe obesity without serious comorbidity with body mass index (BMI) of 45.0 to 49.9 in adult, unspecified obesity type (CMS/HCC) Anxiety and depression (CMS/HCC)- Primary Chronic bronchitis, unspecified chronic bronchitis type (CMS/HCC) Non-recurrent acute suppurative otitis media of left ear without spontaneous rupture of tympanic membrane Chronic shoulder pain, unspecified laterality Multiple sclerosis (CMS/HCC) Multiple sclerosis Abscess- Primary Cellulitis and abscess of unspecified site Class 3 severe obesity without serious comorbidity with body mass index (BMI) of 45.0 to 49.9 in adult, unspecified obesity type (CMS/HCC) Abnormal weight gain Abnormal CBC Other abnormal blood chemistry Anxiety and depression (CMS/HCC) Contact with and (suspected) exposure to viral hepatitis Hyperlipidemia, acquired (CMS/HCC) Other and unspecified hyperlipidemia Primary hypertension (CMS/HCC) Unspecified essential hypertension Vitamin D deficiency Polyuria Polydipsia Metabolic syndrome Dysmetabolic Syndrome X Primary insomnia Persistent disorder of initiating or maintaining sleep Diverticulitis- Primary Diverticulitis of colon (without mention of hemorrhage) Class 3 severe obesity without serious comorbidity with body mass index (BMI) of 45.0 to 49.9 in adult, unspecified obesity type (CMS/HCC) Anxiety and depression (CMS/HCC)- Primary Needs flu shot Need for prophylactic vaccination and inoculation against influenza Candidiasis of skin Candidiasis of skin and nails Acute non-recurrent sinusitis of other sinus- Primary documented in this encounter [facility]* Diagnosis Class 3 severe obesity without serious comorbidity with body mass index (BMI) of 45.0 to 49.9 in adult, unspecified obesity type (CMS/HCC)- Primary Anxiety and depression (CMS/HCC) Primary insomnia Persistent disorder of initiating or maintaining sleep Primary hypertension (CMS/HCC) Unspecified essential hypertension Multiple sclerosis (CMS/HCC) Multiple sclerosis Chronic bronchitis, unspecified chronic bronchitis type (CMS/HCC) Encounter for screening mammogram for malignant neoplasm of breast Routine general medical examination at a health care facility Chronic right shoulder pain- Primary Pain in joint, shoulder region Anxiety and depression (CMS/HCC)- Primary Class 3 severe obesity without serious comorbidity with body mass index (BMI) of 45.0 to 49.9 in adult, unspecified obesity type (CMS/HCC) Chronic bronchitis, unspecified chronic bronchitis type (CMS/HCC) 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 Multiple sclerosis (CMS/HCC)- Primary Multiple sclerosis Primary hypertension (CMS/HCC) Unspecified essential hypertension Anxiety and depression (CMS/HCC) COPD with exacerbation (CMS/HCC) Non-recurrent acute suppurative otitis media of left ear without spontaneous rupture of tympanic membrane Chronic bronchitis, unspecified chronic bronchitis type (CMS/HCC)- Primary Contact with and (suspected) exposure to viral hepatitis Non-recurrent acute suppurative otitis media of left ear without spontaneous rupture of tympanic membrane Multiple sclerosis (CMS/HCC) Multiple sclerosis Class 3 severe obesity without serious comorbidity with body mass index (BMI) of 45.0 to 49.9 in adult, unspecified obesity type (CMS/HCC) 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 Mixed incontinence urge and stress (male)(female) Non-recurrent acute suppurative otitis media of left ear without spontaneous rupture of tympanic membrane Chronic bronchitis, unspecified chronic bronchitis type (CMS/HCC) Multiple sclerosis (CMS/HCC) Multiple sclerosis Class 3 severe obesity without serious comorbidity with body mass index (BMI) of 45.0 to 49.9 in adult, unspecified obesity type (CMS/HCC) Anxiety and depression (CMS/HCC)- Primary Chronic bronchitis, unspecified chronic bronchitis type (CMS/HCC) Non-recurrent acute suppurative otitis media of left ear without spontaneous rupture of tympanic membrane Chronic shoulder pain, unspecified laterality Multiple sclerosis (CMS/HCC) Multiple sclerosis Abscess- Primary Cellulitis and abscess of unspecified site Class 3 severe obesity without serious comorbidity with body mass index (BMI) of 45.0 to 49.9 in adult, unspecified obesity type (CMS/HCC) Abnormal weight gain Abnormal CBC Other abnormal blood chemistry Anxiety and depression (CMS/HCC) Contact with and (suspected) exposure to viral hepatitis Hyperlipidemia, acquired (CMS/HCC) Other and unspecified hyperlipidemia Primary hypertension (CMS/HCC) Unspecified essential hypertension Vitamin D deficiency Polyuria Polydipsia Metabolic syndrome Dysmetabolic Syndrome X Primary insomnia Persistent disorder of initiating or maintaining sleep Diverticulitis- Primary Diverticulitis of colon (without mention of hemorrhage) Class 3 severe obesity without serious comorbidity with body mass index (BMI) of 45.0 to 49.9 in adult, unspecified obesity type (CMS/HCC) Anxiety and depression (CMS/HCC)- Primary Needs flu shot Need for prophylactic vaccination and inoculation against influenza Candidiasis of skin Candidiasis of skin and nails Acute cough- Primary documented in this encounter [facility]* Diagnosis Class 3 severe obesity without serious comorbidity with body mass index (BMI) of 45.0 to 49.9 in adult, unspecified obesity type (CMS/HCC)- Primary Anxiety and depression (CMS/HCC) Primary insomnia Persistent disorder of initiating or maintaining sleep Primary hypertension (CMS/HCC) Unspecified essential hypertension Multiple sclerosis (CMS/HCC) Multiple sclerosis Chronic bronchitis, unspecified chronic bronchitis type (CMS/HCC) Encounter for screening mammogram for malignant neoplasm of breast Routine general medical examination at a health care facility Chronic right shoulder pain- Primary Pain in joint, shoulder region Anxiety and depression (CMS/HCC)- Primary Class 3 severe obesity without serious comorbidity with body mass index (BMI) of 45.0 to 49.9 in adult, unspecified obesity type (CMS/HCC) Chronic bronchitis, unspecified chronic bronchitis type (CMS/HCC) 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 Multiple sclerosis (CMS/HCC)- Primary Multiple sclerosis Primary hypertension (CMS/HCC) Unspecified essential hypertension Anxiety and depression (CMS/HCC) COPD with exacerbation (CMS/HCC) Non-recurrent acute suppurative otitis media of left ear without spontaneous rupture of tympanic membrane Chronic bronchitis, unspecified chronic bronchitis type (CMS/HCC)- Primary Contact with and (suspected) exposure to viral hepatitis Non-recurrent acute suppurative otitis media of left ear without spontaneous rupture of tympanic membrane Multiple sclerosis (CMS/HCC) Multiple sclerosis Class 3 severe obesity without serious comorbidity with body mass index (BMI) of 45.0 to 49.9 in adult, unspecified obesity type (CMS/HCC) 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 Mixed incontinence urge and stress (male)(female) Non-recurrent acute suppurative otitis media of left ear without spontaneous rupture of tympanic membrane Chronic bronchitis, unspecified chronic bronchitis type (CMS/HCC) Multiple sclerosis (CMS/HCC) Multiple sclerosis Class 3 severe obesity without serious comorbidity with body mass index (BMI) of 45.0 to 49.9 in adult, unspecified obesity type (CMS/HCC) Anxiety and depression (CMS/HCC)- Primary Chronic bronchitis, unspecified chronic bronchitis type (CMS/HCC) Non-recurrent acute suppurative otitis media of left ear without spontaneous rupture of tympanic membrane Chronic shoulder pain, unspecified laterality Multiple sclerosis (CMS/HCC) Multiple sclerosis Abscess- Primary Cellulitis and abscess of unspecified site Class 3 severe obesity without serious comorbidity with body mass index (BMI) of 45.0 to 49.9 in adult, unspecified obesity type (CMS/HCC) Abnormal weight gain Abnormal CBC Other abnormal blood chemistry Anxiety and depression (CMS/HCC) Contact with and (suspected) exposure to viral hepatitis Hyperlipidemia, acquired (CMS/HCC) Other and unspecified hyperlipidemia Primary hypertension (CMS/HCC) Unspecified essential hypertension Vitamin D deficiency Polyuria Polydipsia Metabolic syndrome Dysmetabolic Syndrome X Primary insomnia Persistent disorder of initiating or maintaining sleep Diverticulitis- Primary Diverticulitis of colon (without mention of hemorrhage) Class 3 severe obesity without serious comorbidity with body mass index (BMI) of 45.0 to 49.9 in adult, unspecified obesity type (CMS/HCC) Anxiety and depression (CMS/HCC)- Primary Needs flu shot Need for prophylactic vaccination and inoculation against influenza Candidiasis of skin Candidiasis of skin and nails Anxiety and depression (CMS/HCC) documented [facility]* Diagnosis Pre-op testing- Primary Unspecified pre-operative examination Rotator cuff impingement syndrome of left shoulder documented in this [facility]* Diagnosis Diverticulitis- Primary Diverticulitis of colon (without mention of hemorrhage) Class 3 severe obesity without serious comorbidity with body mass index (BMI) of 45.0 to 49.9 in adult, unspecified obesity type (CMS/HCC) documented in this [facility]* Diagnosis Class 3 severe obesity without serious comorbidity with body mass index (BMI) of 45.0 to 49.9 in adult, unspecified obesity type (CMS/HCC)- Primary Anxiety and depression (CMS/HCC) Primary insomnia Persistent disorder of initiating or maintaining sleep Primary hypertension (CMS/HCC) Unspecified essential hypertension Multiple sclerosis (CMS/HCC) Multiple sclerosis Chronic bronchitis, unspecified chronic bronchitis type (CMS/HCC) Encounter for screening mammogram for malignant neoplasm of breast Routine general medical examination at a health care facility Chronic right shoulder pain- Primary Pain in joint, shoulder region Anxiety and depression (CMS/HCC)- Primary Class 3 severe obesity without serious comorbidity with body mass index (BMI) of 45.0 to 49.9 in adult, unspecified obesity type (CMS/HCC) Chronic bronchitis, unspecified chronic bronchitis type (CMS/HCC) 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 Multiple sclerosis (CMS/HCC)- Primary Multiple sclerosis Primary hypertension (CMS/HCC) Unspecified essential hypertension Anxiety and depression (CMS/HCC) COPD with exacerbation (CMS/HCC) Non-recurrent acute suppurative otitis media of left ear without spontaneous rupture of tympanic membrane Chronic bronchitis, unspecified chronic bronchitis type (CMS/HCC)- Primary Contact with and (suspected) exposure to viral hepatitis Non-recurrent acute suppurative otitis media of left ear without spontaneous rupture of tympanic membrane Multiple sclerosis (CMS/HCC) Multiple sclerosis Class 3 severe obesity without serious comorbidity with body mass index (BMI) of 45.0 to 49.9 in adult, unspecified obesity type (CMS/HCC) 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 Mixed incontinence urge and stress (male)(female) Non-recurrent acute suppurative otitis media of left ear without spontaneous rupture of tympanic membrane Chronic bronchitis, unspecified chronic bronchitis type (CMS/HCC) Multiple sclerosis (CMS/HCC) Multiple sclerosis Class 3 severe obesity without serious comorbidity with body mass index (BMI) of 45.0 to 49.9 in adult, unspecified obesity type (CMS/HCC) Anxiety and depression (CMS/HCC)- Primary Chronic bronchitis, unspecified chronic bronchitis type (CMS/HCC) Non-recurrent acute suppurative otitis media of left ear without spontaneous rupture of tympanic membrane Chronic shoulder pain, unspecified laterality Multiple sclerosis (CMS/HCC) Multiple sclerosis Abscess- Primary Cellulitis and abscess of unspecified site Class 3 severe obesity without serious comorbidity with body mass index (BMI) of 45.0 to 49.9 in adult, unspecified obesity type (CMS/HCC) Abnormal weight gain Abnormal CBC Other abnormal blood chemistry Anxiety and depression (CMS/HCC) Contact with and (suspected) exposure to viral hepatitis Hyperlipidemia, acquired (CMS/HCC) Other and unspecified hyperlipidemia Primary hypertension (CMS/HCC) Unspecified essential hypertension Vitamin D deficiency Polyuria Polydipsia Metabolic syndrome Dysmetabolic Syndrome X Primary insomnia Persistent disorder of initiating or maintaining sleep Diverticulitis- Primary Diverticulitis of colon (without mention of hemorrhage) Class 3 severe obesity without serious comorbidity with body mass index (BMI) of 45.0 to 49.9 in adult, unspecified obesity type (CMS/HCC) Anxiety and depression (CMS/HCC)- Primary Needs flu shot Need for prophylactic vaccination and inoculation against influenza Candidiasis of skin Candidiasis of skin and nails Adhesive capsulitis of left shoulder- Primary S/P arthroscopy of left shoulder documented in this encounter [facility]* Diagnosis Multiple sclerosis (CMS/HCC)- Primary Multiple sclerosis Rotator cuff impingement syndrome of left shoulder- Primary documented in this encounter [facility]* Diagnosis Class 3 severe obesity without serious comorbidity with body mass index (BMI) of 45.0 to 49.9 in adult, unspecified obesity type (CMS/HCC)- Primary Anxiety and depression (CMS/HCC) Primary insomnia Persistent disorder of initiating or maintaining sleep Primary hypertension (CMS/HCC) Unspecified essential hypertension Multiple sclerosis (CMS/HCC) Multiple sclerosis Chronic bronchitis, unspecified chronic bronchitis type (CMS/HCC) Encounter for screening mammogram for malignant neoplasm of breast Routine general medical examination at a health care facility Chronic right shoulder pain- Primary Pain in joint, shoulder region Anxiety and depression (CMS/HCC)- Primary Class 3 severe obesity without serious comorbidity with body mass index (BMI) of 45.0 to 49.9 in adult, unspecified obesity type (CMS/HCC) Chronic bronchitis, unspecified chronic bronchitis type (CMS/HCC) 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 Multiple sclerosis (CMS/HCC)- Primary Multiple sclerosis Primary hypertension (CMS/HCC) Unspecified essential hypertension Anxiety and depression (CMS/HCC) COPD with exacerbation (CMS/HCC) Non-recurrent acute suppurative otitis media of left ear without spontaneous rupture of tympanic membrane Chronic bronchitis, unspecified chronic bronchitis type (CMS/HCC)- Primary Contact with and (suspected) exposure to viral hepatitis Non-recurrent acute suppurative otitis media of left ear without spontaneous rupture of tympanic membrane Multiple sclerosis (CMS/HCC) Multiple sclerosis Class 3 severe obesity without serious comorbidity with body mass index (BMI) of 45.0 to 49.9 in adult, unspecified obesity type (CMS/HCC) 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 Mixed incontinence urge and stress (male)(female) Non-recurrent acute suppurative otitis media of left ear without spontaneous rupture of tympanic membrane Chronic bronchitis, unspecified chronic bronchitis type (CMS/HCC) Multiple sclerosis (CMS/HCC) Multiple sclerosis Class 3 severe obesity without serious comorbidity with body mass index (BMI) of 45.0 to 49.9 in adult, unspecified obesity type (CMS/HCC) Anxiety and depression (CMS/HCC)- Primary Chronic bronchitis, unspecified chronic bronchitis type (CMS/HCC) Non-recurrent acute suppurative otitis media of left ear without spontaneous rupture of tympanic membrane Chronic shoulder pain, unspecified laterality Multiple sclerosis (CMS/HCC) Multiple sclerosis Abscess- Primary Cellulitis and abscess of unspecified site Class 3 severe obesity without serious comorbidity with body mass index (BMI) of 45.0 to 49.9 in adult, unspecified obesity type (CMS/HCC) Abnormal weight gain Abnormal CBC Other abnormal blood chemistry Anxiety and depression (CMS/HCC) Contact with and (suspected) exposure to viral hepatitis Hyperlipidemia, acquired (CMS/HCC) Other and unspecified hyperlipidemia Primary hypertension (CMS/HCC) Unspecified essential hypertension Vitamin D deficiency Polyuria Polydipsia Metabolic syndrome Dysmetabolic Syndrome X Primary insomnia Persistent disorder of initiating or maintaining sleep Diverticulitis- Primary Diverticulitis of colon (without mention of hemorrhage) Class 3 severe obesity without serious comorbidity with body mass index (BMI) of 45.0 to 49.9 in adult, unspecified obesity type (CMS/HCC) Anxiety and depression (CMS/HCC)- Primary Needs flu shot Need for prophylactic vaccination and inoculation against influenza Candidiasis of skin Candidiasis of skin and nails Encounter for subsequent annual wellness visit (AWV) in Medicare patient- Primary LORENZO (obstructive sleep apnea) Obstructive sleep apnea (adult) (pediatric) Multiple sclerosis (CMS/HCC) Multiple sclerosis Primary insomnia Persistent disorder of initiating or maintaining sleep Class 3 severe obesity without serious comorbidity with body mass index (BMI) of 45.0 to 49.9 in adult, unspecified obesity type (CMS/HCC) Encounter for screening mammogram for malignant neoplasm of breast Moderate episode of recurrent major depressive disorder (CMS/HCC) Generalized anxiety disorder with panic attacks (CMS/HCC) documented [facility] this encounter [facility] Diagnosis Class 3 severe obesity without serious comorbidity with body mass index (BMI) of 45.0 to 49.9 in adult, unspecified obesity type (CMS/HCC)- Primary Anxiety and depression (CMS/HCC) Primary insomnia Persistent disorder of initiating or maintaining sleep Primary hypertension (CMS/HCC) Unspecified essential hypertension Multiple sclerosis (CMS/HCC) Multiple sclerosis Chronic bronchitis, unspecified chronic bronchitis type (CMS/HCC) Encounter for screening mammogram for malignant neoplasm of breast Routine general medical examination at a health care facility Chronic right shoulder pain- Primary Pain in joint, shoulder region Anxiety and depression (CMS/HCC)- Primary Class 3 severe obesity without serious comorbidity with body mass index (BMI) of 45.0 to 49.9 in adult, unspecified obesity type (CMS/HCC) Chronic bronchitis, unspecified chronic bronchitis type (CMS/HCC) 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 Multiple sclerosis (CMS/HCC)- Primary Multiple sclerosis Primary hypertension (CMS/HCC) Unspecified essential hypertension Anxiety and depression (CMS/HCC) COPD with exacerbation (CMS/HCC) Non-recurrent acute suppurative otitis media of left ear without spontaneous rupture of tympanic membrane Chronic bronchitis, unspecified chronic bronchitis type (CMS/HCC)- Primary Contact with and (suspected) exposure to viral hepatitis Non-recurrent acute suppurative otitis media of left ear without spontaneous rupture of tympanic membrane Multiple sclerosis (CMS/HCC) Multiple sclerosis Class 3 severe obesity without serious comorbidity with body mass index (BMI) of 45.0 to 49.9 in adult, unspecified obesity type (CMS/HCC) 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 Mixed incontinence urge and stress (male)(female) Non-recurrent acute suppurative otitis media of left ear without spontaneous rupture of tympanic membrane Chronic bronchitis, unspecified chronic bronchitis type (CMS/HCC) Multiple sclerosis (CMS/HCC) Multiple sclerosis Class 3 severe obesity without serious comorbidity with body mass index (BMI) of 45.0 to 49.9 in adult, unspecified obesity type (CMS/HCC) Anxiety and depression (CMS/HCC)- Primary Chronic bronchitis, unspecified chronic bronchitis type (CMS/HCC) Non-recurrent acute suppurative otitis media of left ear without spontaneous rupture of tympanic membrane Chronic shoulder pain, unspecified laterality Multiple sclerosis (CMS/HCC) Multiple sclerosis Abscess- Primary Cellulitis and abscess of unspecified site Class 3 severe obesity without serious comorbidity with body mass index (BMI) of 45.0 to 49.9 in adult, unspecified obesity type (CMS/HCC) Abnormal weight gain Abnormal CBC Other abnormal blood chemistry Anxiety and depression (CMS/HCC) Contact with and (suspected) exposure to viral hepatitis Hyperlipidemia, acquired ([facility]/HCC) Other and unspecified hyperlipidemia Primary hypertension ([facility]/HCC) Unspecified essential hypertension Vitamin D deficiency Polyuria Polydipsia Metabolic syndrome Dysmetabolic Syndrome X Primary insomnia Persistent disorder of initiating or maintaining sleep Diverticulitis- Primary Diverticulitis of colon (without mention of hemorrhage) Class 3 severe obesity without serious comorbidity with body mass index (BMI) of 45.0 to 49.9 in adult, unspecified obesity type ([facility]/HCC) Anxiety and depression (CMS/HCC)- Primary Needs flu shot Need for prophylactic vaccination and inoculation against influenza Candidiasis of skin Candidiasis of skin and nails Encounter for subsequent annual wellness visit (AWV) in Medicare patient- Primary LORENZO (obstructive sleep apnea) Obstructive sleep apnea (adult) (pediatric) Multiple sclerosis ([facility]/HCC) Multiple sclerosis Primary insomnia Persistent disorder of initiating or maintaining sleep Class 3 severe obesity without serious comorbidity with body mass index (BMI) of 45.0 to 49.9 in adult, unspecified obesity type ([facility]/HCC) Encounter for screening mammogram for malignant neoplasm of breast Moderate episode of recurrent major depressive disorder ([facility]/HCC) Generalized anxiety disorder with panic attacks ([facility]) Acute non-recurrent frontal sinusitis- Primary documented in this encounter [facility] N[facility] - Reported* Type Description Date Surgical History ectopic Surgical History tubal ligation Surgical History caprpal tunnel release [employer] Other History general Narrative - Reported* Type Description Date Surgical History ectopic Surgical History tubal ligation Surgical History caprpal tunnel release Hospitalization History see above [employer] Other Hospital course Narrative No data available for this section [facility] Hospital Discharge instructions No data available for this section [facility] Progress note No data available for this section [facility] Reason for referral (narrative)* Diagnostic Procedure Only (Routine) - Pending Review Specialty Diagnoses / Procedures Referred By Atilio carbone Referred To Contact [facility] Diagnoses Encounter for screening mammogram for breast cancer Procedures ALIYA SCREENING SCREENING MAMMOGRAPHY BI 2-VIEW BREAST INC CAD Valdez Acosta MD [address] [place] [address] [facility] [address] [place] [address] Referral ID Status Reason Start Date Expiration Date Visits Requested Visits Authorized [id number] Pending Review Auto-Generat ed Referral 11/15/2021 12/15/2022 1 1 [facility] for referral (narrative)* Diagnostic Procedure Only (Routine) - Pending Review Specialty Diagnoses / Procedures Referred By Atilio carbone Referred To Contact [facility] Diagnoses Encounter for screening mammogram for breast cancer Procedures ALIYA SCREENING SCREENING MAMMOGRAPHY BI 2-VIEW BREAST INC CAD Valdez Acosta MD [address] [place] [address] [facility] [address] [place] [address] Referral ID Status Reason Start Date Expiration Date Visits Requested Visits Authorized [id number] Pending Review Auto-Generat ed Referral 10/17/2022 11/16/2023 1 1 [facility] for referral (narrative)* Consultation (Routine) Specialty Diagnoses / Procedures Referred By Atilio carbone Referred To Contact Neurology LAUER TALBERT [address] [address] Aron Chinchilla MD [address] [place] [address] Referral ID Status Reason Start Date Expiration Date V isits Requested Visits Authorized Specialty Services Required [facility] for visit NarrativeREFERRED BY KRISTIN GRACIA FOR CONSTIPATION, (REFERRAL NOTE RECEIVED)[employer] Other Reason for visit Narrative* Rehabilitation - Outpatient (Routine) - Authorized Specialty Diagnoses / Procedures Referred By Atilio carbone Referred To Contact Physical Therapy Diagnoses S/P arthroscopy of left shoulder Procedures TX OFFICE/OUTPATIENT NEW HIGH MDM 60 MINUTES Brooks, Eliazar T, DO [address] [place] [address] Phone: tel: fax: Aria Agrawal PT Referral ID Status Reason Start Date Expiration Date Visits Requested Visits Authorized [id number] Authorized Specialty Services Required 04/10/2024 12 12 [facility] Summary Purpose Family History No Family History Records Found Relationship Condition Age at Onset Recorded Date/T alethea father Malignant neoplasm of rectum Unknown Not Specified Hypertension Unknown Cerebrovascular accident (CVA) Unknown brother Diabetes mellitus Unknown Heart disease Unknown sister Diabetes mellitus Unknown Advance Directives No Advanced Directives Records Found Advance Directive Response Recorded Date/ Time Advance Directives No September 01, 2 022 8:00am Reason for Referral Specialty Diagnoses / Procedures Referred By Atilio carbone Referred To Contact [facility] Diagnoses Multiple sclerosis, relapsing-remitting (HCC) Procedures CONSULT TO INSPECTOR COLD WORKING OCCUPATIONAL THERAPY EVAL HIGH COMPLEX 60 MINS Jessica Clarke PA-C [address] [place] [address] [facility] [place] [address] [place] [address] Referral ID Status Reason Start Date Expiration Date Visits Requested Visits Authorized [id number] Pending Review Auto-Generat ed Referral 09/15/2021 09/15/2022 1 1 Specialty Diagnoses / Procedures Referred By Atilio carbone Referred To Contact [facility] Diagnoses Multiple sclerosis, relapsing-remitting (HCC) Procedures MRI BRAIN WO/W IVCON MRI BRAIN BRAIN STEM W/O W/CONTRAST MATERIAL Jessica Clarke PA-C [address] [place] [address] [facility] Referral ID Status Reason Start Date Expiration Date Visits Requested Visits Authorized [id number] Pending Review Auto-Generat ed Referral 09/15/2021 10/15/2022 1 1 Referral ID Status Reason Start Date Expiration Date V isits Requested Visits Authorized [id number] Closed Auto-Generate d Referral 09/15/2021 11/25/2021 1 1 Specialty Diagnoses / Procedures Referred By Atilio carbone Referred To Contact [facility] Diagnoses Multiple sclerosis, relapsing-remitting (HCC) Procedures MRI BRAIN WO/W IVCON MRI BRAIN BRAIN STEM W/O W/CONTRAST MATERIAL Sarthak Escobar MD, PhD [address] [place] [address] [facility] Referral ID Status Reason Start Date Expiration Date Visits Requested Visits Authorized [id number] Pending Review Auto-Generat ed Referral 11/14/2021 12/14/2022 1 1 Specialty Diagnoses / Procedures Referred By Contac t Referred To Contact [facility] Diagnoses Multiple sclerosis, relapsing-remitting (HCC) Procedures MRI CERVICAL SPINE WO/W IVCON MRI SPINAL CANAL CERVICAL W/O & W/CONTR MATRL Jessica Clarke PA-C [address] [place] [address] [facility] Imaging Referral ID Status Reason Start Date Expiration Date Visits Requested Visits Authorized [id number] Pending Review Auto-Generat ed Referral 08/30/2022 09/29/2023 1 1 Referral ID Status Reason Start Date Expiration Date Visits Requested Visits Authorized [id number] Pending Review Auto-Generat ed Referral 08/30/2022 09/29/2023 1 1 Specialty Diagnoses / Procedures Referred By Contac t Referred To Contact [facility] Diagnoses Cervical disc disorder with radiculopathy Procedures CONSULT TO PHYSICAL THERAPY PHYSICAL THERAPY EVALUATION HIGH COMPLEX [address] [place], [place] [address] [place] [address] [facility] [address] [address] Referral ID Status Reason Start Date Expiration Date Visits Requested Visits Authorized [id number] Pending Review Auto-Generat ed Referral 07/10/2023 07/09/2024 1 1 Specialty Diagnoses / Procedures Referred By Contac t Referred To Contact [facility] Diagnoses Multiple sclerosis (HCC) Procedures MRI BRAIN WO/W IVCON MRI BRAIN BRAIN STEM W/O W/CONTRAST MATERIAL Jessica Clarke PA-C [address] [place] [address] Mr Imaging [place] [address] Referral ID Status Reason Start Date Expiration Date Visits Requested Visits Authorized [id number] Pending Review Auto-Generat ed Referral 07/16/2023 08/14/2024 1 1 Specialty Diagnoses / Procedures Referred By Contac t Referred To Contact Diagnoses Cervical stenosis of spine Procedures CONSULT TO SPINE SURGERY OFFICE/OUTPATIENT [facility] 60 MINUTES Jessica Clarke PA-C [address] [place] [address] Referral ID Status Reason Start Date Expiration Date Visits Requested Visits Authorized [id number] Authorized PCP Requested Referral 08/22/2023 08/21/2024 1 1 Specialty Diagnoses / Procedures Referred By Contac t Referred To Contact [facility] Diagnoses Left arm weakness Procedures MRI CERVICAL SPINE WO IVCON MRI SPINAL CANAL CERVICAL W/O CONTRAST MATRL Kateirn Mccoy PA-C [address] [place] [address] Mr Imaging [place] [address] Referral ID Status Reason Start Date Expiration Date Visits Requested Visits Authorized [id number] Pending Review Auto-Generat ed Referral 09/06/2023 10/05/2024 1 1 Specialty Diagnoses / Procedures Referred By Contac t Referred To Contact [facility] Diagnoses Left arm weakness Procedures EMG(NEURO/NI) NERVE CONDUCTION STUDIES 9-10 STUDIES Katerin Mccoy PA-C [address] [place] [address] [facility] [place] [address] [place] [address] Referral ID Status Reason Start Date Expiration Date Visits Requested Visits Authorized [id number] Pending Review Auto-Generat ed Referral 09/06/2023 09/05/2024 1 1 Specialty Diagnoses / Procedures Referred By Contac t Referred To Contact XR IMAGING Diagnoses Left arm weakness Procedures XR CERV OTHER 4V AP/LAT/FLX/EXT RADEX SPINE CERVICAL 4 OR 5 VIEWS Katerin Mccoy PA-C [address] [place] [id number] Xr Imaging [place] [address] Referral ID Status Reason Start Date Expiration Date Visits Requested Visits Authorized [id number] Pending Review Auto-Generat ed Referral 09/06/2023 10/05/2024 1 1 Specialty Diagnoses / Procedures Referred By Atilio carbone Referred To Contact Physical Therapy Diagnoses S/P arthroscopy of left shoulder Procedures TX OFFICE/OUTPATIENT NEW HIGH MDM 60 MINUTES Eliazar Brooks, DO [address] [place] [address] Aria Agrawal PT Referral ID Status Reason Start Date Expiration Date Visits Requested Visits Authorized [id number] Pending Review Specialty Services Required 02/25/2024 08/23/2024 1 1 Assessments Findings Encounter Date Encounter for Immunization 1st COVID Vaccine meme Shaikh PharmD 07/28/2020 Instructions Instructions not supported for this document type No Instructions Recorded History of Present Illness History of Present Illness not supported for this document type No History of Present Illness Recorded Review of System Review of Systems not supported for this document type No Review of Systems Recorded Physical Exam Physical Exam not supported for this document type No Physical Exam Recorded Chief Complaint and Reason for Visit Chief Complaint Constipation, Change in Stool,Rectal Bleeding/Pain Chief Complaint Constipation, Change in Stool,Rectal Bleeding/Pain Constipation, Change in Stool,Rectal Bleeding/Pain Medications Administered Section Inactive Administered Medications - up to 3 most recent administrations Medication Order MAR Action Action Date Dose Rate Site acetaminophen 1,000 mg tab(s) (TYLENOL) 1,000 mg, ORAL, ONCE, 1 dose, On Sat09/18/21 at 0800, No more than 4000 mg of acetaminophen should be given per day (FROM ALL SOURCES) Given 09/18/2021 8:10 AM EDT 1,000 mg diphenhydrAMINE 50 mg (BENADRYL) 50 mg, ORAL, ONCE, 1 dose, On Sat09/18/21 at 0800 Given 09/18/2021 8:10 AM EDT 50 mg methylPREDNISolone sod succinate(PF) 100 mg injection (SOLU-Medrol) 100 mg, INTRAVENOUS, ONCE, 1 dose, On Sat09/18/21 at 0800 Given 09/18/2021 8:10 AM EDT 100 mg ocrelizumab (OCREVUS) in NaCl 0.9% Vial-Mate 600 mg 500 mL 600 mg, INTRAVENOUS, ONCE, 1 dose, On Sat09/18/21 at 0800, Subsequent infusion. Start infusion at 100 mL/hour for 15 minutes, then increase to 200 mL/hour for 15 minutes, then increase to 250 mL/hour for 30 minutes, then increase to 300 mL/hour for remainder of infusion. Maximum rate = 300mL/hour. APPROXIMATE TOTAL VOLUME: 560 mL For 300 mg doses, administer one 300 mg/250 mL bag. For 600 mg doses, administer two 300 mg/250 mL bags. Administer with 0.2 micron filter. Refrigerate - Protect From Light. New Bag/Syringe/Bottle 09/18/2021 9:50 AM EDT 300 mg 300 mL/hr Rate/Dose Change 09/18/2021 9:30 AM EDT 300 mL/ hr Rate/Dose Change 09/18/2021 9:00 AM EDT 250 mL/ hr Inactive Administered Medications - up to 3 most recent administrations Medication Order MAR Action Action Date Dose Rate Site acetaminophen 1,000 mg tab(s) (TYLENOL) 1,000 mg, ORAL, ONCE, 1 dose, On [place] 03/22/22 at 0800, No more than 4000 mg of acetaminophen should be given per day (FROM ALL SOURCES) Given 03/22/2022 8:15 AM EDT 1,000 mg diphenhydrAMINE 50 mg (BENADRYL) 50 mg, ORAL, ONCE, 1 dose, On [place] 03/22/22 at 0800 Given 03/22/2022 8:15 AM EDT 50 mg methylPREDNISolone sod succinate(PF) 100 mg injection (SOLU-Medrol) 100 mg, INTRAVENOUS, ONCE, 1 dose, On [place] 03/22/22 at 0800 Given 03/22/2022 8:20 AM EDT 100 mg ocrelizumab (OCREVUS) in NaCl 0.9% Vial-Mate 600 mg 500 mL 600 mg, INTRAVENOUS, ONCE, 1 dose, On [place] 03/22/22 at 0800, Subsequent infusion. Start infusion at 100 mL/hour for 15 minutes, then increase to 200 mL/hour for 15 minutes, then increase to 250 mL/hour for 30 minutes, then increase to 300 mL/hour for remainder of infusion. Maximum rate = 300mL/hour. APPROXIMATE TOTAL VOLUME: 560 mL For 300 mg doses, administer one 300 mg/250 mL bag. For 600 mg doses, administer two 300 mg/250 mL bags. Administer with 0.2 micron filter. Refrigerate - Protect From Light. New Bag/Syringe/Bottle 03/22/2022 9:50 AM EDT 300 mg 300 mL/hr Rate/Dose Change 03/22/2022 9:30 AM EDT 300 mL/ hr Rate/Dose Change 03/22/2022 9:00 AM EDT 250 mL/ hr Additional Source Comments INFORMATION SOURCE (unrecogn ized section and content) DATE CREATED AUTHOR 11/12/2017 [facility] DATE CREATED AUTHOR AUTHOR'S ORGANIZ ATION 11/13/2017 [facility] DATE CREATED AUTHOR AUTHOR'S ORGANIZ ATION 09/14/2021 [facility] DATE CREATED AUTHOR AUTHOR'S ORGANIZ ATION 10/02/2022 [facility] DATE CREATED AUTHOR AUTHOR'S ORGANIZ ATION 12/21/2023 [facility] DATE CREATED AUTHOR AUTHOR'S ORGANIZ ATION 02/07/2024 [facility] DATE CREATED AUTHOR AUTHOR'S ORGANIZ ATION 02/18/2024 [facility] DATE CREATED AUTHOR AUTHOR'S ORGANIZ ATION 06/19/2024 [facility] EPIC Medical History (unrecognize d section and content) Includes: Medical History in patient's chartNo Medical History Recorded Evaluations & Outcomes (unre cognized section and content) Includes: Evaluations & Outcomes for active GoalsNo Outcomes Recorded Care Teams (unrecognized sec tion and content) Team Status: Inactive Member Role Status Dates Services Family [facility] Primary Care Provider Active Tyshawn Palencia MD Attending Provider Active Team Status: Active Member Role Status Dates Services Family [facility] Primary Care Provider Active Specialty Manufacturing Supervisor Relationship Specialty Start Date End Date Valdez Acosta MD [address] [place] [address] PCP - General Internal Medicine 11/01/20 Specialty Manufacturing Supervisor Relationship Specialty Start Date End Date Valdez Acosta MD [address] [place] [address] PCP - General Internal Medicine 11/01/20 Specialty Manufacturing Supervisor Relationship Specialty Start Date End Date Valdez Acosta MD [address] [place] [address], [place] [address] PCP - General Internal Medicine 11/01/20 Specialty Manufacturing Supervisor Relationship Specialty Start Date End Date Valdez Acosta MD [address] [place] [address] PCP - General Internal Medicine 11/01/20 Specialty Manufacturing Supervisor Relationship Specialty Start Date End Date Valdez Acosta MD [address] [place] [address], [place] [address] PCP - General Internal Medicine 11/01/20 Specialty Manufacturing Supervisor Relationship Specialty Start Date End Date Valdez Acosta MD [address] [place] [address] PCP - General Internal Medicine 11/01/20 Specialty Manufacturing Supervisor Relationship Specialty Start Date End Date Valdez Acosta MD [address] [place] [address] PCP - General Internal Medicine 11/01/20 Specialty Manufacturing Supervisor Relationship Specialty Start Date End Date Valdez Acosta MD [address] [place] [address] PCP - General Internal Medicine 11/01/20 Specialty Manufacturing Supervisor Relationship Specialty Start Date End Date Valdez Acosta MD [address] [place] [address] PCP - General Internal Medicine 11/01/20 Specialty Manufacturing Supervisor Relationship Specialty Start Date End Date Valdez Acosta MD [address] [place] [address], [place] [address] PCP - General Internal Medicine 11/01/20 Specialty Manufacturing Supervisor Relationship Specialty Start Date End Date Valdez Acosta MD [address] [place] [address] [place] [address] PCP - General Internal Medicine 11/01/20 Specialty Manufacturing Supervisor Relationship Specialty Start Date End Date Valdez Acosta MD [address] [place] [address] PCP - General Internal Medicine 11/01/20 Specialty Manufacturing Supervisor Relationship Specialty Start Date End Date Valdez Acosta MD [address] [place] [address], [place] [address] PCP - General Internal Medicine 11/01/20 Specialty Manufacturing Supervisor Relationship Specialty Start Date End Date Valdez Acosta MD [address] [place] [address] PCP - General Internal Medicine 11/01/20 Specialty Manufacturing Supervisor Relationship Specialty Start Date End Date Maxim Lanza MD [address] [place] [phone] PCP - General Family Medicine 04/22/23 Kristin Gracia NP [address] [place] [id number] Nurse Practitioner Family Medicine 05/20/22 Specialty Manufacturing Supervisor Relationship Specialty Start Date End Date Maxim Lanza MD [address] [place] [phone] PCP - General Family Medicine 04/22/23 Kristin Gracia NP [address] [place] [phone] Nurse Practitioner Family Medicine 05/20/22 Specialty Manufacturing Supervisor Relationship Specialty Start Date End Date Valdez Acosta MD [address] [place] [address], [place] [address] PCP - General Internal Medicine 11/01/20 Specialty Manufacturing Supervisor Relationship Specialty Start Date End Date Valdez Acosta MD [address] [place] [address], [place] [address] PCP - General Internal Medicine 11/01/20 Specialty Manufacturing Supervisor Relationship Specialty Start Date End Date Valdez Acosta MD [address] [place] [address], [place] [address] PCP - General Internal Medicine 11/01/20 Specialty Manufacturing Supervisor Relationship Specialty Start Date End Date Valdez Acosta MD [address] [place] [address] PCP - General Internal Medicine 11/01/20 Specialty Manufacturing Supervisor Relationship Specialty Start Date End Date Valdez Acosta MD [address] [facility] [place] [address] PCP - General Internal Medicine 11/01/20 Specialty Manufacturing Supervisor Relationship Specialty Start Date End Date Valdez Acosta MD [address] [facility] [place] [address] PCP - General Internal Medicine 11/01/20 Specialty Manufacturing Supervisor Relationship Specialty Start Date End Date Valdez Acosta MD [address] [place] [address], [place] [address] PCP - General Internal Medicine 11/01/20 Specialty Manufacturing Supervisor Relationship Specialty Start Date End Date Maxim Lanza MD [address] [place] [address] PCP - General Family Medicine 07/15/23 Kristin Gracia NP [address] [place] [address] Primary Care Provider Family Medicine 05/20/22 Specialty Manufacturing Supervisor Relationship Specialty Start Date End Date Maxim Lanza MD [address] [place] [phone] PCP - General Family Medicine 07/15/23 Kristin Gracia NP [address] [place] [address] Primary Care Provider Family Medicine 05/20/22 Specialty Manufacturing Supervisor Relationship Specialty Start Date End Date Maxim Lanza MD [address] [place] [address] PCP - General Family Medicine 07/15/23 Kristin Gracia NP [address] [place] [address] Primary Care Provider Family Medicine 05/20/22 Specialty Manufacturing Supervisor Relationship Specialty Start Date End Date Maxim Lanza MD [address] [place] [address] PCP - General Family Medicine 07/15/23 Kristin Gracia NP [address] [place] [address] Primary Care Provider Family Medicine 05/20/22 Specialty Manufacturing Supervisor Relationship Specialty Start Date End Date Maxim Lanza MD [address] [place] [address] PCP - General Family Medicine 07/15/23 Kristin Gracia NP [address] [place] [address] Primary Care Provider Family Medicine 05/20/22 Specialty Manufacturing Supervisor Relationship Specialty Start Date End Date Maxim Lanza MD [address] [place] [address] PCP - General Family Medicine 07/15/23 Kristin Gracia NP [address] [place] [address] Primary Care Provider Family Medicine 05/20/22 Specialty Manufacturing Supervisor Relationship Specialty Start Date End Date Maxim Lanza MD [address] [place] [address] PCP - General Family Medicine 07/15/23 Kristin Gracia NP [address] [place] [address] Primary Care Provider Family Medicine 05/20/22 Specialty Manufacturing Supervisor Relationship Specialty Start Date End Date Maxim Lanza MD [address] [place] [address] PCP - General Family Medicine 07/15/23 Kristin Gracia NP [address] [place] [address] Primary Care Provider Family Medicine 05/20/22 Specialty Manufacturing Supervisor Relationship Specialty Start Date End Date Maxim Lanza MD [address] [place] [address] PCP - General Family Medicine 07/15/23 Kristin Gracia NP [address] [place] [address] Primary Care Provider Family Medicine 05/20/22 Specialty Manufacturing Supervisor Relationship Specialty Start Date End Date Maxim Lanza MD [address] [place] [address] PCP - General Family Medicine 07/15/23 Kristin Gracia NP [address] [place] [address] Primary Care Provider Family Medicine 05/20/22 Specialty Manufacturing Supervisor Relationship Specialty Start Date End Date Maxim Lanza MD [address] [place] [address] PCP - General Family Medicine 07/15/23 Kristin Gracia NP [address] [place] [address] Primary Care Provider Family Medicine 05/20/22 Specialty Manufacturing Supervisor Relationship Specialty Start Date End Date Maxim Lanza MD [address] [place] [address] PCP - General Family Medicine 07/15/23 Kristin Gracia NP [address] [place] [address] Primary Care Provider Family Medicine 05/20/22 Specialty Manufacturing Supervisor Relationship Specialty Start Date End Date Maxim Lanza MD [address] [place] [phone] PCP - General Family Medicine 07/15/23 Kristin Gracia NP [address] [place] [address] Primary Care Provider Family Medicine 05/20/22 Specialty Manufacturing Supervisor Relationship Specialty Start Date End Date Maxim Lanza MD [address] [place] [address] PCP - General Family Medicine 07/15/23 Kristin Gracia NP [address] [place] [address] Primary Care Provider Family Medicine 05/20/22 Specialty Manufacturing Supervisor Relationship Specialty Start Date End Date Maxim Lanza MD [address] [place] [address] PCP - General Family Medicine 07/15/23 Kristin Gracia NP [address] [place] [address] Primary Care Provider Family Medicine 05/20/22 Specialty Manufacturing Supervisor Relationship Specialty Start Date End Date Maxim Lanza MD [address] [place] [address] PCP - General Family Medicine 07/15/23 Kristin Gracia NP [address] [place] [address] Primary Care Provider Family Medicine 05/20/22 Specialty Manufacturing Supervisor Relationship Specialty Start Date End Date Maxim Lanza MD [address] [place] [address] PCP - General Family Medicine 07/15/23 Kristin Gracia NP [address] [place] [address] Primary Care Provider Family Medicine 05/20/22 Specialty Manufacturing Supervisor Relationship Specialty Start Date End Date Maxim Lanza MD [address] [place] [address] PCP - General Family Medicine 07/15/23 Kristin Gracia NP [address] [place] [address] Primary Care Provider Family Medicine 05/20/22 Specialty Manufacturing Supervisor Relationship Specialty Start Date End Date Maxim Lanza MD [address] [place] [address] PCP - General Family Medicine 07/15/23 Kristin Gracia NP [address] [place] [address] Primary Care Provider Family Medicine 05/20/22 Specialty Manufacturing Supervisor Relationship Specialty Start Date End Date Valdez Acosta MD [address] [place] [address] PCP - General Internal Medicine 11/01/20 Sherrie Smith PA-C [address] [place] [address] [phone] Manager [employer] Internal Medicine 04/26/24 Elizabeth Lopez APRN.[facility] [address] [place] [address] [phone] Manager [employer] [facility] 04/26/24 Specialty Manufacturing Supervisor Relationship Specialty Start Date End Date Maxim Lanza MD [address] [place] [address] PCP - General Family Medicine 07/15/23 Kristin Gracia NP [address] [place] [address] Primary Care Provider Family Medicine 05/20/22 Specialty Manufacturing Supervisor Relationship Specialty Start Date End Date Maxim Lanza MD [address] [place] [address] PCP - General Family Medicine 07/15/23 Kristin Gracia NP [address] [place] [address]198[address] Primary Care Provider Family Medicine 05/20/22 Specialty Manufacturing Supervisor Relationship Specialty Start Date End Date Maxim Lanza MD [address] [place] [address]10[address] PCP - General Family Medicine 07/15/23 Kristin Grcaia NP [address] [place] [phone] Primary Care Provider Family Medicine 05/20/22 Specialty Manufacturing Supervisor Relationship Specialty Start Date End Date Maxim Lanza MD [address] [place] [address] PCP - General Family Medicine 07/15/23 Kristin Gracia NP [address] [place] [address] Primary Care Provider Family Medicine 05/20/22 Goals (unrecognized section and content) Goals may be documented in a n alternate section Source Comments (unrecognize d section and content) In the event this informatio n is protected by the Federal Confidentiality of Alcohol and Drug Abuse Patient Records regulations: The Federal rules restrict any use of the information to criminally investigate or prosecute any alcohol or drug abuse patient.[facility] the event this information is protected by the Federal Confidentiality of Alcohol and Drug Abuse Patient Records regulations: The Federal rules restrict any use of the information to criminally investigate or prosecute any alcohol or drug abuse patient.[facility] HospitalIn the event this information is protected by the Federal Confidentiality of Alcohol and Drug Abuse Patient Records regulations: The Federal rules restrict any use of the information to criminally investigate or prosecute any alcohol or drug abuse patient.[facility] HospitalIn the event this information is protected by the Federal Confidentiality of Alcohol and Drug Abuse Patient Records regulations: The Federal rules restrict any use of the information to criminally investigate or prosecute any alcohol or drug abuse patient.[facility] HospitalIn the event this information is protected by the Federal Confidentiality of Alcohol and Drug Abuse Patient Records regulations: The Federal rules restrict any use of the information to criminally investigate or prosecute any alcohol or drug abuse patient.[facility] HospitalIn the event this information is protected by the Federal Confidentiality of Alcohol and Drug Abuse Patient Records regulations: The Federal rules restrict any use of the information to criminally investigate or prosecute any alcohol or drug abuse patient.[facility] HospitalIn the event this information is protected by the Federal Confidentiality of Alcohol and Drug Abuse Patient Records regulations: The Federal rules restrict any use of the information to criminally investigate or prosecute any alcohol or drug abuse patient.[facility] HospitalIn the event this information is protected by the Federal Confidentiality of Alcohol and Drug Abuse Patient Records regulations: The Federal rules restrict any use of the information to criminally investigate or prosecute any alcohol or drug abuse patient.[facility] HospitalIn the event this information is protected by the Federal Confidentiality of Alcohol and Drug Abuse Patient Records regulations: The Federal rules restrict any use of the information to criminally investigate or prosecute any alcohol or drug abuse patient.[facility] HospitalIn the event this information is protected by the Federal Confidentiality of Alcohol and Drug Abuse Patient Records regulations: The Federal rules restrict any use of the information to criminally investigate or prosecute any alcohol or drug abuse patient.[facility] HospitalIn the event this information is protected by the Federal Confidentiality of Alcohol and Drug Abuse Patient Records regulations: The Federal rules restrict any use of the information to criminally investigate or prosecute any alcohol or drug abuse patient.[facility] HospitalIn the event this information is protected by the Federal Confidentiality of Alcohol and Drug Abuse Patient Records regulations: The Federal rules restrict any use of the information to criminally investigate or prosecute any alcohol or drug abuse patient.[facility] HospitalIn the event this information is protected by the Federal Confidentiality of Alcohol and Drug Abuse Patient Records regulations: The Federal rules restrict any use of the information to criminally investigate or prosecute any alcohol or drug abuse patient.[facility] HospitalIn the event this information is protected by the Federal Confidentiality of Alcohol and Drug Abuse Patient Records regulations: The Federal rules restrict any use of the information to criminally investigate or prosecute any alcohol or drug abuse patient.[facility] HospitalIn the event this information is protected by the Federal Confidentiality of Alcohol and Drug Abuse Patient Records regulations: The Federal rules restrict any use of the information to criminally investigate or prosecute any alcohol or drug abuse patient.[facility] HospitalIn the event this information is protected by the Federal Confidentiality of Alcohol and Drug Abuse Patient Records regulations: The Federal rules restrict any use of the information to criminally investigate or prosecute any alcohol or drug abuse patient.[facility] HospitalIn the event this information is protected by the Federal Confidentiality of Alcohol and Drug Abuse Patient Records regulations: The Federal rules restrict any use of the information to criminally investigate or prosecute any alcohol or drug abuse patient.[facility] HospitalIn the event this information is protected by the Federal Confidentiality of Alcohol and Drug Abuse Patient Records regulations: The Federal rules restrict any use of the information to criminally investigate or prosecute any alcohol or drug abuse patient.[facility] HospitalIn the event this information is protected by the Federal Confidentiality of Alcohol and Drug Abuse Patient Records regulations: The Federal rules restrict any use of the information to criminally investigate or prosecute any alcohol or drug abuse patient.[facility] HospitalIn the event this information is protected by the Federal Confidentiality of Alcohol and Drug Abuse Patient Records regulations: The Federal rules restrict any use of the information to criminally investigate or prosecute any alcohol or drug abuse patient.[facility] HospitalIn the event this information is protected by the Federal Confidentiality of Alcohol and Drug Abuse Patient Records regulations: The Federal rules restrict any use of the information to criminally investigate or prosecute any alcohol or drug abuse patient.[facility] HospitalIn the event this information is protected by the Federal Confidentiality of Alcohol and Drug Abuse Patient Records regulations: The Federal rules restrict any use of the information to criminally investigate or prosecute any alcohol or drug abuse patient.[facility] HospitalIn the event this information is protected by the Federal Confidentiality of Alcohol and Drug Abuse Patient Records regulations: The Federal rules restrict any use of the information to criminally investigate or prosecute any alcohol or drug abuse patient.[facility] HospitalIn the event this information is protected by the Federal Confidentiality of Alcohol and Drug Abuse Patient Records regulations: The Federal rules restrict any use of the information to criminally investigate or prosecute any alcohol or drug abuse patient.[facility] HospitalIn the event this information is protected by the Federal Confidentiality of Alcohol and Drug Abuse Patient Records regulations: The Federal rules restrict any use of the information to criminally investigate or prosecute any alcohol or drug abuse patient.[facility] HospitalIn the event this information is protected by the Federal Confidentiality of Alcohol and Drug Abuse Patient Records regulations: The Federal rules restrict any use of the information to criminally investigate or prosecute any alcohol or drug abuse patient.[facility] HospitalIn the event this information is protected by the Federal Confidentiality of Alcohol and Drug Abuse Patient Records regulations: The Federal rules restrict any use of the information to criminally investigate or prosecute any alcohol or drug abuse patient.[facility] HospitalIn the event this information is protected by the Federal Confidentiality of Alcohol and Drug Abuse Patient Records regulations: The Federal rules restrict any use of the information to criminally investigate or prosecute any alcohol or drug abuse patient.[facility] HospitalIn the event this information is protected by the Federal Confidentiality of Alcohol and Drug Abuse Patient Records regulations: The Federal rules restrict any use of the information to criminally investigate or prosecute any alcohol or drug abuse patient.[facility] Reason for Visit (unrecogniz ed section and content) Reason Comments IV Medication Administration [facility] Specialty Diagnoses / Procedures Referred By Atilio carbone Referred To Contact Diagnoses Multiple sclerosis (HCC) G35 (ICD-10-CM) - Multiple sclerosis (HCC) Procedures INJECTION, OCRELIZUMAB, 1 MG J2350 - INJECTION, OCRELIZUMAB, 1 MG Sarthak Escobar MD, PhD [address] [place] [address] [facility] [address] [place] [id number] Referral ID Status Reason Start Date Expiration Date V isits Requested Visits Authorized [id number] Pending Review 12/06/2020 03/22/2023 4 4 Reason Comments Established Patient Follow-Up Reason Comments Infusion [facility] Referral ID Status Reason Start Date Expiration Date V isits Requested Visits Authorized [id number] Pending Review 12/06/2020 03/01/2022 2 2 Specialty Diagnoses / Procedures Referred By Atilio carbone Referred To Contact MR IMAGING Diagnoses Multiple sclerosis, relapsing-remitting (HCC) Procedures MRI BRAIN WO/W IVCON MRI BRAIN BRAIN STEM W/O W/CONTRAST MATERIAL Jessica Clarke PA-C [address] [place] [address] Mr Imaging Referral ID Status Reason Start Date Expiration Date V isits Requested Visits Authorized [id number] Closed Auto-Generate d Referral 09/15/2021 11/25/2021 1 1 Reason Comments Established Patient Follow-Up Reason Comments [facility] Specialty Diagnoses / Procedures Referred By Atilio carbone Referred To Contact [facility] Diagnoses Multiple sclerosis, relapsing-remitting (HCC) Procedures CONSULT TO INSPECTOR COLD WORKING OCCUPATIONAL THERAPY EVAL HIGH COMPLEX 60 MINS Jessica Clarke PA-C [address] [place] [address] [facility] [place] [address] [place] [address] Referral ID Status Reason Start Date Expiration Date V isits Requested Visits Authorized [id number] Closed Auto-Generate d Referral 09/15/2021 05/19/2022 1 1 Reason Comments Appointment Called pt LVM to see about setting up pt and psycology. Reason Comments Established Patient Follow-Up Reason Comments Patient Update Reason Comments URI Reason Comments Consult Cervical pain Specialty Diagnoses / Procedures Referred By Contac t Referred To Contact [facility] [place] Diagnoses Cervical stenosis of spine Procedures CONSULT TO [facility] OFFICE/OUTPATIENT NEW HIGH [facility] 60 MINUTES Jessica Clarke PA-C [address] [place] [address] Referral ID Status Reason Start Date Expiration Date V isits Requested Visits Authorized [id number] Closed PCP Requested Referral 06/13/2023 06/12/2024 1 1 Reason Comments Orders Order for MRI needed for Brain and Cervical Reason Comments Patient Question Reason Comments Established Patient Reason Comments Orders Reason Comments Post-op PO Lt shoulder scope prob RCR TSCNCO 02/10/24 Specialty Diagnoses / Procedures Referred By Contac t Referred To Contact Physical Therapy Diagnoses S/P arthroscopy of left shoulder Procedures TX OFFICE/OUTPATIENT NEW HIGH MDM 60 MINUTES Eliazar Brooks, DO [address] [place] [address] Aria Agrawal PT Referral ID Status Reason Start Date Expiration Date Visits Requested Visits Authorized [id number] Pending Review Specialty Services Required 02/25/2024 08/23/2024 1 1 Reason Onset Date Comments re: PT 04/01/2024 She called alicia tucker w/ the progress of PT so far she is dealing w/ great pain. She said she has a fu w/ doctor in the beginning of April and she'd like to hold-off till after. I indicated her auth ending date is 04/10/24 and she said she does not want to cont till after fu. Reason Comments Med Refill Reason Comments Pain Reason Comments Post-op Lt shoulder scope, R CR TSCNCO 02/10/24 Reason Onset Date Comments re: PT Eval tomorrow 05/04/2024 Call Back 05/04/2024 Reason Comments Medicare Annual Wellness Visit Initial Reason Comments Sinusitis FOR RECORDS PERTAINING TO PATIENTS WHO ARE OR HAVE BEEN ENROLLED IN A CHEMICAL DEPENDENCY/SUBSTANCEABUSE PROGRAM, SOME INFORMATION MAY BE OMITTED. This clinical summary was aggregated from multiple sources. Caution should be exercised in using it in the provision of clinical care. This summary normalizes information from multiple sources, and as a consequence, information in this document may materially change the coding, format and clinical context of patient data. In addition, data may be omitted in some cases. CLINICAL DECISIONS SHOULD BE BASED ON THE PRIMARY CLINICAL RECORDS. [facility]. provides no warranty or guarantee of the accuracy or completeness of information in this document.
== END 2024-06-30 09:19 | disposition home or self-care (01) ==
LOC: MAMMO 09:18
PROVIDERS: PCP Nurse Practitioner; Visit Provider Nurse Practitioner
DX: Z12.31 Encounter for screening mammogram for malignant neoplasm of breast (principal); Z80.3 Family history of malignant neoplasm of breast; Z80.8 Family history of malignant neoplasm of other organs or systems
CPT/HCPCS: 77063; 77067

== ENCOUNTER 2024-08-22 22:23 | Observation (INO) | payer MEDICARE, SELFPAY ==
[2024-08-22 22:29] VITALS: BP 113/83; PULSE 105; TEMP 37.1; O2SAT 98; BMI 48.2
--- OUTSIDE RECORDS SUMMARY | 2024-08-22 22:31 | XMS_ITS | CCD ---
Author Organization [facility] Inform ion Partnership [facility] Care Team Providers Care Prospect Manager Name Role Phone August PERSONAL SERVICE REPRESENTATIVE Unavailable Unavailable August PERSONAL SERVICE REPRESENTATIVE Unavailable Unavailable August PERSONAL SERVICE REPRESENTATIVE Unavailable Unavailable Jaleesa Lara Unavailable [facility], [facility] Primary Care Provider [phone] MD Tyshawn Palencia Attending Provider Valdez Acosta MD Primary Care Provider Tyshawn Palencia Unavailable Valdez Acosta MD Primary Care Provider [phone] Valdez Acosta MD Primary Care Provider AICHHOLZ, PERSONAL SERVICE REPRESENTATIVE KRISTIN Admitting Unavailable AICHHOLZ, PERSONAL SERVICE REPRESENTATIVE KRISTIN Attending Unavailable AICHHOLZ, PERSONAL SERVICE REPRESENTATIVE KRISTIN Primary Care Unavailable TAMLYN ., YAHAIRA Consulting Unavailable TAMLYN ., YAHAIRA Admitting Unavailable TAMLYN ., YAHAIRA Attending Unavailable AICHHOLZ, PERSONAL SERVICE REPRESENTATIVE KRISTIN Primary Care Unavailable TAMLYN ., YAHAIRA Consulting Unavailable THEA LYNN Consulting Unavailable YASH CALLAHAN Consulting Unavailable AICHHOLZ, PERSONAL SERVICE REPRESENTATIVE KRISTIN Admitting Unavailable AICHHOLZ, PERSONAL SERVICE REPRESENTATIVE KRISTIN Attending Unavailable AICHHOLZ, PERSONAL SERVICE REPRESENTATIVE KRISTIN Primary Care Unavailable AICHHOLZ, PERSONAL SERVICE REPRESENTATIVE KRISTIN Consulting Unavailable AICHHOLZ, PERSONAL SERVICE REPRESENTATIVE KRISTIN Admitting Unavailable AICHHOLZ, PERSONAL SERVICE REPRESENTATIVE KRISTIN Attending Unavailable AICHHOLZ, PERSONAL SERVICE REPRESENTATIVE KRISTIN Primary Care Unavailable AICHHOLZ, PERSONAL SERVICE REPRESENTATIVE KRISTIN Consulting Unavailable DR TULIO BULL Admitting Unavailable MISC, DR ANTUNEZ Attending Unavailable AICHHOLZ, PERSONAL SERVICE REPRESENTATIVE RKISTIN Primary Care Unavailable MISC, DR ANTUNEZ Consulting Unavailable Aichholz LIFTER/DRIVER, Kristin Unavailable Maxim Lanza MD Primary Care Provider Valdez Acosta MD Primary Care Provider VINCE, JESSICA Referring Unavailable PARIS TOLEDO Attending Unavailable DAHBAR, MAZEN Primary Care Unavailable ELIAZAR VAZQUEZ Attending Unavailable DAHBAR, MAZEN Primary Care Unavailable KATERIN MCCOY Attending Unavailable YOUNG, JESSICA Referring Unavailable DAHBAR, MAZEN Primary Care Unavailable YOUNG, JESSICA Referring Unavailable YOUNG, JESSICA Attending Unavailable DAHBAR, MAZEN Primary Care Unavailable SARTHAK ESCOBAR Referring Unavailable DAHBAR, [facility] Primary Care Unavailable , AUGUST L Primary Care Physician Unavailab le [place] Primary Care Unavailable Brooks, Eliazar T Referring Unavailable Brooks, Eliaazr T Attending Unavailable Brooks, Eliazar T Admitting Unavailable NONE, XXXX Primary Care Physician Unavailab Keli Montanez Unavailable Unavailable Brooks, Eliazar T Admitting Unavailable Brooks, Eliazar T Attending Unavailable Brooks, Eliazar T Referring Unavailable Brooks, Eliazar T Admitting Unavailable Brooks, Eliazar T Attending Unavailable Brooks, Eliazar T Referring Unavailable August Primary Care Unavailable Aichholz LIFTER/DRIVER, Kristin Unavailable Myla BENITEZ, Maxim Primary Care Provider Sarah FIGUEROA, Sherrie Unavailable [phone] John UNIX MANAGER.PERSONAL SERVICE REPRESENTATIVE, Elizabeth Barney Unavailable SHERRIE BOONE Attending Unavailabl e AICHHOLZ, KRISTIN Attending Unavailable HILLS, YAHAIRA D Referring Unavailable HILLS, YAHAIRA D Attending Unavailable HILLS, YAHAIRA D Referring Unavailable AICHHOLZ, KRISTIN Attending Unavailable AICHHOLZ, KRISTIN Attending Unavailable HILLS, YAHAIRA [...] T Attending Unavailable INDERJIT PELLETIER Attending Unavailable BROOKS, ELIAZAR T Referring Unavailable INDERJIT PELLETIER Attending Unavailable ELIAZAR BROOKS Referring Unavailable YAHAIRA VAZQUEZ Attending Unavailable KRISTIN GRACIA Attending Unavailable Allergies Allergy Classification Reported Allergen(s) Allergy Type Date of Onset Reaction(s) Facility (1 source) -No Environmental Allergies Allergy to substance [facility] Work Phone: (2 sources) Acetaminophen / HYDROcodone; Translations: [Vicodin] Drug Allergy [facility] Repository (2 sources) Penicillins; Translations: [penicillins] Propensity to adverse reactions (disorder) [facility] Repository Medications Current Medications Medication Drug Class(es) Dates Sig (Normalized) Sig (Original) acetaminophen 1000 mg oral tablet (20 sources) Start: 06-30-2016 take 1000 mg by mouth every six hours as needed for pain Tylenol 1,000 mg, Oral, q6hr, PRN as needed for pain Start Date: 06/30/16 Status: Ordered End: 08-18-2024 acetaminophen (Tylenol) 500 MG tablet Take by mouth 08/18/2024 Discontinued (Therapy completed) acetaminophen 325 mg / oxyCODONE hydrochloride 5 mg oral tablet (20 sources) Opioid Agonist Start: 02-06-2024 take 1-2 tablets by mouth every four hours as needed for pain Percocet 5 mg-325 mg oral tablet See Instructions, 40 tab(s), Refill(s) 0, Take one to two oral every 4 hours as needed for shoulder surgical pain., [employer] [facility], 167.7, cm, 02/05/24 11:09:00 EDT, Height/Length Dosing, 131.3, kg, 02/05/24 11:09:00 EDT, Weight Dosing Start Date: 02/06/24 Status: Ordered Start: 02-06-2024 End: 04-15-2024 Percocet 5-325 MG tablet See Instructions, 40 tab(s), Refill(s) 0, Take one to two oral every 4 hours as needed for shoulder surgical pain., [employer] [facility], 167.7, cm, 02/05/24 11:09:00 EDT, Height/Length Dosing, 131.3, kg, 02/05/24 11:09:00 EDT, Weight Dosing 02/06/2024 04/15/2024 Discontinued (Therapy completed) [id number] 200 actuat albuterol 0.09 mg/actuat metered dose [...] Start: 06-05-2023 take 2 puff(s) by mo uth every six hours as needed for wheezing [...] on above: INHALE 2 PUFFS BY MO UTH EVERY 6 HOURS NEEDED FOR WHEEZING FOR SHORTNESS OF BREATH amitriptyline hydrochloride 25 mg oral tablet (20 sources) Tricyclic Antidepressant Start: 09-06-19 take 25 mg by mouth at bedtime Amitriptyline Active 25 MG PO Bedtime September 05, 2021 8:21am Start: 07-15-2020 amitriptyline (ELAVIL) 50 mg tablet Take 25-50 mg qhs 07/15/2020 Active take 1 tablet by katharina th every twelve hours Amitriptyline HCl 10 MG [...] 20 tablet 0 06/26/2023 07/06/2023 Active ARIPiprazole 10 mg oral tablet (11 sources) Atypical Antipsychotic Start: 07-07-2024 End: 08-06-2024 take 1 tablet by mouth once daily ARIPiprazole (Abilify) 10 MG tablet Indications: Major depressive disorder, recurrent, moderate (CMS/HCC) , Generalized anxiety disorder with panic attacks (CMS/HCC) Take 1 tablet (10 mg) by mouth Daily 30 tablet 2 07/07/2024 Active Start: 05-18-2024 End: 06-17-2024 take 1 tablet [...] oral solution (1 source) alpha-Adrenergic Agonist, Uncompetitive E-yqdrmo-R-aspartat e Receptor Antagonist, Sigma-1 Agonist Start: 04-15-2024 [...] Start Date: 06/30/16 Status: Ordered busPIRone hydrochloride 7.5 mg oral tablet (13 sources) Start: 08-18-2024 End: 09-17-2024 take 1 tablet by mouth every eight hours busPIRone (Buspar) 7.5 MG tablet Indications: Generalized anxiety disorder with panic attacks (CMS/HCC) Take 1 tablet (7.5 mg) by mouth every 8 (eight) hours if needed (anxiety) 90 tablet 08/18/2024 09/17/2024 Active Start: 07-07-2024 End: 08-18-2024 take 1 tablet by mouth in the morning, then take 1 tablet by mouth in the evening, then take 1 tablet by mouth at bedtime busPIRone (Buspar) 5 MG tablet Indications: Generalized anxiety disorder with panic attacks (CMS/HCC) Take 1 tablet (5 mg) by mouth in the morning and 1 tablet (5 mg) in the evening and 1 tablet (5 mg) before bedtime. 90 tablet 1 07/07/2024 08/18/2024 Discontinued (Ineffective) Start: 05-18-2024 End: 06-17-2024 take 1 tablet by mouth in the morning busPIRone (Buspar) 5 MG tablet Indications: Generalized anxiety disorder with panic attacks (CMS/HCC) Take 1 tablet (5 mg) by mouth in the morning and 1 tablet (5 mg) before bedtime. 60 tablet 1 05/18/2024 Active cetirizine hydrochloride 10 mg oral tablet (8 sources) Histamine-1 Receptor Antagonist Start: 06-17-2024 End: [...] delayed release oral capsule (1 source) Start: 7 take 240 mg by mouth twice daily Tecfidera 240 mg, Oral, BID Start Date: 06/30/16 Status: Ordered doxycycline hyclate 100 mg oral capsule (2 sources) Tetracycline-class Drug Start: End: doxycycline (Vibramycin) 100 MG capsule Indications: [...] (20 sources) Serotonin Reuptake Inhibitor Start: End: take 1 tablet by mouth once daily escitalopram (Lexapro) 10 MG tablet Indications: Generalized anxiety disorder with panic attacks (CMS/HCC) , Moderate episode of recurrent major depressive disorder (CMS/HCC) Take 1 tablet (10 mg) by mouth Daily 30 tablet 1 07/07/2024 Active Start: 05-18-2024 End: 06-17-2024 take 1 tablet [...] 90 tablet 1 06/05/2023 Active Estrogens, Conjugated (HALFWAY) / medroxyPROGESTERone (1 source) Progestin, Estrogen Start: 06-30-2016 FLUoxetine 20 mg oral capsule (12 sources) Serotonin Reuptake Inhibitor Start: 09-05-2021 FLUoxetine (PROZAC) 20 mg capsule Daily 09/05/2021 Active Comment on above: Daily fluticasone propionate 0.05 mg/actuat metered dose nasal spray (7 sources) Corticosteroid Start: 06-17-2024 End: 06-17-2025 take 1-2 spray(s) nasal route once daily fluticasone (Flonase) 50 MCG/ACT nasal spray Indications: Acute non-recurrent frontal sinusitis Administer 1-2 sprays into each nostril Daily Shake gently. Before first use, prime pump. After use, clean tip and replace cap. 16 g 2 06/17/2024 08/18/2024 Discontinued (Therapy completed) iv contrast (will be provided with radiology [...] in the MR contrast administration guidelines link. mirtazapine 15 mg oral tablet (2 sources) Start: 08-19-19 End: 09-18-19 take 1 tablet by mouth at bedtime mirtazapine (Remeron) 15 MG tablet Indications: Generalized anxiety disorder with panic attacks (CMS/HCC) , Major depressive disorder, recurrent, moderate (CMS/HCC) , Primary insomnia Take 1 tablet (15 mg) by mouth at bedtime 30 tablet 1 08/18/2024 09/17/2024 Active multivitamin tablet (20 sources) take 1 tablet [...] Antifungal Start: 03-05-2024 End: 03-20-2024 nystatin (Mycostatin) 034901 UNIT/GM powder Indications: Candidiasis of skin Apply topically 2 (two) times a day for 15 days Apply to affected areas 60 g 1 03/05/2024 03/20/2024 Active End: 03-05-2024 nystatin (Mycostatin) 781297 UNIT/GM powder Apply topically 2 (two) times [...] Start: 06-14-2018 End: 06-14-2018 TRAZODONE 50 mg [facility] [place] - 06/14/2018 Provider: Start: 05-30-2017 End: 05-30-2017 TRAZODONE 50 mg [facility] [place] - 05/30/2017 Provider: vitamin B12 (12 [...] on above: Take 1,000 mcg by mo [facility] once daily. Vitamin D (2 sources) [...] on above: Take 1 tablet by katharina once daily. atorvastatin 40 mg oral tablet [...] on above: Take 1 tablet by katharina once daily. Take 1 tablet by katharina once daily betamethasone 3 mg/ml / betamethasone [...] Start: 06-30-2016 take 2 tablets by mo ut twice daily as needed for muscle spasms [...] TABS 06/14/2018 - 06/14/2018 Provider: Conversion Provider End: 08-18-2024 naproxen (Naprosyn) 250 MG t ablet Take by mouth 08/18/2024 Discontinued (Therapy completed) 24 hr oxybutynin chloride 5 mg extended [...] bronchitis; Translations: [Unspecified chronic bronchitis] Onset: 04-30-2023 Resolved: 07-01-2024 04-30-2023 Chronic Disorders of lipid metabolism (20 [...] sources) Depressive disorder; Translations: [Depression] Onset: 03-19-2015 Resolved: 06-25-2024 06-26-2023 Chronic Multiple sclerosis (20 sources) Relapsing [...] [Metabolic syndrome] Onset: 01-06-2024 01-06-2024 Chronic Other nutritional; endocrine; and metabolic disorders (6 sources) Body mass index 40+ - severely obese; Translations: [Body mass index (BMI) 45.0-49.9, adult] Onset: 06-25-2024 06-25-2024 Chronic Other nutritional; endocrine; and metabolic disorders (8 sources) Obesity caused by energy imbalance; Translations: [Morbid (severe) obesity due to excess calories] Onset: 06-25-2024 06-25-2024 Chronic Residual codes; unclassified (20 sources) Obstructive sleep [...] [Candidiasis of skin and nail] Onset: 03-05-2024 Resolved: 07-02-2024 03-05-2024 Episodic Other and unspecified benign neoplasm [...] Onset: 12-20-2016 Episodic Other lower respiratory disease (19 sources) Cough; Translations: [Acute cough] Onset: 04-15-2024 [...] hyperhidrosis] Onset: 07-30-2023 Resolved: 07-30-2023 07-30-2023 Episodic Other upper respiratory infections (20 sources) Acute sinusitis; Translations: [Other acute sinusitis] Onset: 04-14-2024 Resolved: 07-02-2024 04-14-2024 Episodic Otitis media and related conditions (20 [...] Test Name Value Interpretation Reference Range Facility MM TOMOSYNTHESIS SCREENING B Ion 06-30-2024 [place] [address] Mammography Report Signed Patient: YAMILKA VASQUEZ MR#: [id number] : 1970 Acct:[id number] Age/Sex: 54 / F ADM Date: 06/30/24 Loc: MAMMO Attending Dr: Kristin Gracia NP Ordering Physician: Kristin Gracia NP Results: Date of Service: 06/30/24 Follow Up: Procedure(s): MM tomosynthesis screening BI Accession Number(s): [id number] cc: Kristin Gracia NP Patient Name: YAMILKA VASQUEZ MR#: [id number] : 1970 Exam Date: 06/30/2024 Ordering Doctor: RUBINA Gracia CNP RADIOLOGY REPORT PROCEDURE: MM TOMOSYNTHESIS SCREENING BI COMPARISON: None. INDICATIONS: Screening Calculator Name NCI Breast Cancer Risk Assessment Tool 5 Year Breast Cancer Risk 2.40% Lifetime Breast Cancer Risk 14.80% Personal Breast Cancer No Personal Ovarian Cancer No Treatments None Family Cancers Sister with breast cancer at age 63; Father with throat/lung cancer at age 58. LOCATION: [facility] BREAST COMPOSITION: There are scattered areas of fibroglandular density. FINDINGS: DIAGNOSTIC CATEGORY 1--NEGATIVE. NO CHANGE FROM COMPARISON ASSESSMENT. Scattered benign-appearing calcifications are present. RIGHT BREAST: No significant suspicious finding. LEFT BREAST: No significant suspicious finding. RECOMMENDATIONS: ROUTINE MAMMOGRAM AND CLINICAL EVALUATION IN 12 MONTHS. PLEASE NOTE: A NORMAL MAMMOGRAM DOES NOT EXCLUDE THE POSSIBILITY OF BREAST CANCER. A CLINICALLY SUSPICIOUS PALPABLE LUMP SHOULD BE BIOPSIED. Dictated by: Rivera Kenny MD on 06/30/2024 at 11:30 Approved by: Rivera Kenny MD on 06/30/2024 at 11:32 Dictated By: Rivera Kenny M.D. Signed By: 06/30/24 1133 DD/ 1132 TD/TT: [place]: [facility] Radiology, Radiologist, - 06/30/2024 [place] [address] Mammography Report Signed Patient: YAMILKA VASQUEZ MR#: [id number] : 1970 Acct:[id number] Age/Sex: 54 / F ADM Date: 06/30/24 Loc: MAMMO Attending Dr: Kristin Gracia NP Ordering Physician: Kristin Gracia NP Results: Date of Service: 06/30/24 Follow Up: Procedure(s): MM tomosynthesis screening BI Accession Number(s): [id number] cc: Kristin Gracia NP Patient Name: YAMILKA VASQUEZ MR#: [id number] : 1970 Exam Date: 06/30/2024 Ordering Doctor: RUBINA Gracia CNP RADIOLOGY REPORT PROCEDURE: MM TOMOSYNTHESIS SCREENING BI COMPARISON: None. INDICATIONS: Screening Calculator Name NCI Breast Cancer Risk Assessment Tool 5 Year Breast Cancer Risk 2.40% Lifetime Breast Cancer Risk 14.80% Personal Breast Cancer No Personal Ovarian Cancer No Treatments None Family Cancers Sister with breast cancer at age 63; Father with throat/lung cancer at age 58. LOCATION: [facility] BREAST COMPOSITION: There are scattered areas of fibroglandular density. FINDINGS: DIAGNOSTIC CATEGORY 1--NEGATIVE. NO CHANGE FROM COMPARISON ASSESSMENT. Scattered benign-appearing calcifications are present. RIGHT BREAST: No significant suspicious finding. LEFT BREAST: No significant suspicious finding. RECOMMENDATIONS: ROUTINE MAMMOGRAM AND CLINICAL EVALUATION IN 12 MONTHS. PLEASE NOTE: A NORMAL MAMMOGRAM DOES NOT EXCLUDE THE POSSIBILITY OF BREAST CANCER. A CLINICALLY SUSPICIOUS PALPABLE LUMP SHOULD BE BIOPSIED. Dictated by: Rivera Kenny MD on 06/30/2024 at 11:30 Approved by: Rivera Kenny MD on 06/30/2024 at 11:32 Dictated By: Rivera Kenny M.D. Signed By: 06/30/24 1133 DD/ 1132 TD/TT: [place]: [facility] Study observation (narrative) [facility] MM TOMOSYNTHESIS SCREENING B IOrdered By: Radiologist Radiology on 06-30-2024 [facility] Work Phone: No Panel Informationon 04-27 Alona King MA [...] to verify the correct patient, procedure, equipment, patient support specialist and site/side marked as required. Patient was prepped and draped in the usual sterile fashion. [facility] XR Shoulder - left 2 Viewson 02-25-2024 Imaging Result: Two views, AP and Lateral, in the office taken today saved to the permanent record shows post surgical change with acromioplasty/partial distal clavulectomy with appropriate coplaning. No acute fracture, dislocation, tumor or infection seen. [facility] Radiology Study observation (narrative) [facility] Main OR Intraoperative Recor don 02-11-2024 Main OR Intraoperative Record Main OR Intraoperative Record IntraOp Document Type FT Summary Primary Physician: Eliazar Brooks DO Finalized Date/Time: 02/11/24 14:09:06 Pt. Name: YAMILKA VASQUEZ/Aracely: 1970 Female Med Rec #: [id number] Physician: Eliazar Brooks DO Financial #: [id number] Pt. Type: A Room/Bed: Admit/Disch: 02/10/24 11:39:41 [...] Entry 2 Entry 3 Case Attendee Cynthia BROWN, VIAL GAUGER, Eliazar Porter DO CORE MACHINE TENDER, Marlyn Campuzano Role Performed VIAL GAUGER Surgeon - Primary Scrub - Primary Time [...] Attendee Adams Pak Laura C Role Performed Kiln Firer - Primary Scrub - Primary Time In [...] PreOp Antibiotic Yes Given Time Out Cynthia BROWN, VALERY, Time Out Complete 02/10/24 14:35:00 Participants NDread, Eliazar Brooks DO, Wilhelm CST, Marlyn Lynn, Adams Pak, Naomi Garcia Outcomes Met? Yes [...] and tissue Entry 1 Skin Integrity Intact, Scio, Warm, & Skin Abnormality No Dry Outcomes Met? Yes Last Modified By: Adams Pak 02/10/24 15:02:50 Post-Care Text: The patient is free from signs and symptoms of injury caused by extraneous objects Patient Positioning FT Pre-Care Text: Identifies physical alterations that require additional precautions for procedure-specific positioning, verifies presence of prosthetics (more content not included)... Normal [facility] Operative Reporton Operative Report Operative Report SURGERY DATE: 02/10/2024 PROBATION MANAGER: Marlyn Kate C.F.A. PREOPERATIVE DIAGNOSIS: Left shoulder [...] a lateral portal incision utilizing a 90-degree Hermitage wand as well as 5.0 bone cutter, [...] PATIENT CONDITION: Satisfactory Aguila Santamaria Dictated: 02/10/2024 [id number] Transcribed: 02/10/2024 [facility] Comment on above: Result Comment: Elec tronically Signed By: Elizaar Brooks DO\.br\Date and Time Signed: 02/11/24 07:18 [...] scheduled appointment Call for any problems. Where: [address] [place], [place] [id number]- Business (1) Medications What How Much When Why [...] needed for shoulder surgical pain. Pickup at [facility] Unchanged ergocalciferol (Vitamin D) 1,200 International [...] bedtime) as needed for Sleep Pharmacy Information [facility]: [address] [place], [place] [id number] [phone] Test Results No qualifying data available. Allergies No Known Allergies Problems Ongoing - Any problem that you are currently receiving treatment for. Menopause Mini stroke MS - Multiple sclerosis Smoker Education Materials [place], [place] [facility] AFTER YOUR SHOULDER ARTHROSCOPY [...] have any (more content not included)... Normal [facility] Comment on above: Result Comment: Elec tronically Signed By: Aime ROSA, Brigida Barney\.br\Date and Time Signed: 02/10/24 15:46 EDT Main OR PACU I Recordon 01-19 Main OR PACU I Record Main OR PACU I Rec ord PACU Phase I Document Type FT Summary Primary Physician: Eliazar Brooks DO Finalized Date/Time: 02/10/24 16:23:54 Pt. Name: YAMILKA VASQUEZ./Sex: 1970 Female Med Rec #: [id number] Physician: Eliazar Brooks DO Financial #: [id number] Pt. Type: A Room/Bed: Admit/Disch: 02/10/24 11:39:41 [...] Signed By: Meera Rose RN 02/10/24 16:23 [facility] Main OR PACU II Recordon Main OR PACU II Record Main OR PACU II Record PACU Phase II Document Type FT Summary Primary Physician: Eliazar Brooks DO Finalized Date/Time: 02/10/24 18:07:34 Pt. Name: YAMILKA VASQUEZ/Sex: 1970 Female Med Rec #: [id number] Physician: Eliazar Brooks DO Financial #: [id number] Pt. Type: A Room/Bed: Admit/Disch: 02/10/24 11:39:41 [...] By: Sherron Deleon RN 02/10/24 18:07 Normal [facility] Main OR Preoperative Recordo n 02-10-2024 Main OR Preoperative Record Main OR Preoperative Record PreOp Document Type FT Summary Primary Physician: Eliazar Brooks DO Finalized Date/Time: 02/10/24 15:51:36 Pt. Name: YAMILKA VASQUEZ/Sex: 1970 Female Med Rec #: [id number] Physician: Eliazar Brooks DO Financial #: [id number] Pt. Type: A Room/Bed: AS01/18 Admit/Disch: 02/10/24 11:39:41 - Institution: Case Times [...] 02/10/24 14:59 Adams Pak 02/10/24 15:51 Normal [facility] Proceduralon 02-10-2024 Procedural Procedural Patient: YAMILKA VASQUEZ Age: 53 years Sex: Female : 1970 Associated Diagnoses: None Author: Cynthia BROWN, Queen Justen RASMUSSEN Procedure Nerve Block Block Type: Interscalene block. [...] Using maximal sterile barrier technique per current [facility] guidelines including hand hygeine, Guidance (Ultrasound used [...] Cynthia CRNA under Dr Enriquez's supervision.. Normal [facility] Inpatient Patient Summaryon 02-06-2024 Inpatient Patient Summary Inpatient Patient Summary [facility] [address] [place], [place] [address] [facility] Clinical Discharge Instructions PERSON INFORMATION Name: YAMILKA VASQUEZ PHYSICIANS Admitting Physician: Eliazar Brooks DO Attending Physician: Eliazar Brooks DO PCP: FRANCES AGUILERA CNP Discharge Diagnosis: Impingement of left shoulder Comment: PATIENT EDUCATION INFORMATION Instructions: Zbigniew - After Your Shoulder Arthroscopy (Revised 06/17/14) (CUSTOM) Medication Leaflets: Follow up: With: Address: When: Eliazar Brooks [address] [place] [address] PhysicianPortal (1) Comments: Keep scheduled appointment Type Location Start [facility] 02/10/2024 2:30 PM 02/10/2024 3:30 [...] Mouth 2 times a day. Comment: Normal [facility] Outpatient Surgery Discharge Instructionon 02-06-2024 Outpatient Surgery Discharge Instruction Outpatient Surgery Discharge Instruction [place] [id number] Patient Discharge Instructions PERSON INFORMATION Name: YAMILKA [...] Follow up: With: Address: When: Eliazar Brooks [address] [place] [id number] Business (1) Comments: Keep scheduled appointment Type Location Start [facility] 02/10/2024 2:30 PM 02/10/2024 3:30 [...] to serve you. Thank you for choosing [facility] HERE ARE THE MEDICATION CHANGES THAT OCCURRED [...] times a day. PATIENT EDUCATION INFORMATION Instructions: [place], [place] [facility] AFTER YOUR SHOULDER ARTHROSCOPY [...] medication as (more content not included)... Normal [facility] XR Chest 2 Viewson XR Chest 2 [...] Charles Nava MD Transcribed by: JANETH Technologist: AO Technical Comments Radiation Dose: Ka,r in mGy = . DAP = . Normal [facility] BMPon 02-05-2024 Anion gap [Moles/Vol] 11 mmol/L Normal 6-[address] [facility] Comment on above: Performed By: #### 2 [id number] #### [facility] [address] [place] [address] Calcium [Mass/Vol] 9.4 mg/dL Normal 8.9-11.1 [facility] Comment on above: Performed By: #### 2 [id number] #### [facility] [address] [place] [address] Chloride [Moles/Vol] 104 mmol/L Normal 101-111 [facility] Comment on above: Performed By: #### 2 [id number] #### [facility] [address] [place] [address] CO2 [Moles/Vol] 31 mmol/L Normal 21-31 [facility] Comment on above: Performed By: #### 2 050098 #### [facility] [address] [place] [address] Creatinine [Mass/Vol] 0.9 mg/dL Normal 0.5-1.[address] [facility] Comment on above: Performed By: #### 2 785308 #### [facility] [address] [place] [address] Glucose [Mass/Vol] 93 mg/dL Normal 55-199 [facility] Comment on above: Performed By: #### 2 376621 #### [facility] [address] [place] [address] Potassium [Moles/Vol] 4.1 mmol/L Normal 3.5-5.[address] [facility] Comment on above: Performed By: #### 2 827001 #### [facility] [address] [place] [address] Sodium [Moles/Vol] 142 mmol/L Normal 135-145 [facility] Comment on above: Performed By: #### 2 437973 #### [facility] [address] [place] [address] Urea nitrogen [Mass/Vol] 11 mg/dL Normal 5-21 [facility] Comment on above: Performed By: #### 2 442224 #### [facility] [address] [place] [address] Urea nitrogen/Creatinine [Mass ratio] 12 No Units Normal 10-20 [facility] Comment on above: Performed By: #### 2 011041 #### [facility] [address] [place] [address] CBC w/ Auto Diffon 4 Basophils/100 WBC (Bld) 0.6 % Normal 0.0-2.0 [facility] Comment on above: Performed By: #### 2 010846 #### [facility] [address] [place] [address] Basophils/Leukocytes Auto (Bld) [Pure # fraction] 0.0 E9/L Normal 0.0-0.2 [facility] Comment on above: Performed By: #### 2 420568 #### [facility] [address] [place] [address] Eosinophils (Bld) [#/Vol] 0.1 E9/L Normal 0.0-0.5 [facility] Comment on above: Performed By: #### 2 096274 #### [facility] [address] [place] [address] Eosinophils/100 WBC (Bld) 1.2 % Normal 0.0-8.0 [facility] Comment on above: Performed By: #### 2 773626 #### [facility] [address] [place] [address] Erythrocyte distribution width (RBC) [Ratio] 17.5 % High 10.9-14.2 [facility] Comment on above: Performed By: #### 2 355480 #### [facility] [address] [place] [address] Hematocrit (Bld) [Volume fraction] 37.9 % Normal 34.0-46.0 [facility] Comment on above: Performed By: #### 2 069324 #### [facility] [address] [place] [address] Hemoglobin (Bld) [Mass/Vol] 12.6 g/dL Normal 12.0-16.0 [facility] Comment on above: Performed By: #### 2 940966 #### [facility] [address] [place] [address] Lymphocytes (Bld) [#/Vol] 0.8 E9/L Low 1.0-4.0 [facility] Comment on above: Performed By: #### 2 638529 #### [facility] [address] [place] [address] Lymphocytes/100 WBC (Bld) 11.1 % Low 14.0-50.0 [facility] Comment on above: Performed By: #### 2 308307 #### [facility] [address] [place] [address] MCH (RBC) [Entitic mass] 27.8 pg Normal 27.0-34.0 [facility] Comment on above: Performed By: #### 2 095659 #### [facility] [address] [place] [address] MCHC (RBC) [Mass/Vol] 33.2 g/dL Normal 31.4-36.[address] [facility] Comment on above: Performed By: #### 2 497038 #### [facility] [address] [place] [address] MCV (RBC) [Entitic vol] 83.9 fL Normal 80.0-100.0 [facility] Comment on above: Performed By: #### 2 659775 #### [facility] [address] [place] [address] Monocytes (Bld) [#/Vol] 0.8 E9/L Normal 0.2-1.0 [facility] Comment on above: Performed By: #### 2 342100 #### [facility] [address] [place] [address] Neutrophils (Bld) [#/Vol] 5.4 E9/L Normal 2.0-7.5 [facility] Comment on above: Performed By: #### 2 735144 #### [facility] [address] [place] [address] Neutrophils/100 WBC (Bld) 76.4 % High 36.0-75.0 [facility] Comment on above: Performed By: #### 2 593260 #### [facility] [address] [place] [address] Platelet 195.0 E9/L Normal 150.0-500.0 [facility] Comment on above: Performed By: #### 2 485359 #### [facility] [address] [place] [address] Platelet mean volume (Bld) [Entitic vol] 10.4 fL Normal 6.4-10.8 [facility] Comment on above: Performed By: #### 2 772934 #### [facility] [address] [place] [address] RBC (Bld) [#/Vol] 4.5 E12/L Normal 4.3-5.9 [facility] Comment on above: Performed By: #### 2 088033 #### [facility] [address] [place] [address] WBC corrected for nucl RBC Auto (Bld) [#/Vol] 7.1 E9/L Normal 4.0-11.0 [facility] Comment on above: Performed By: #### 2 638205 #### [facility] [address] [place] [address] eGFRon 02-05-2024 eGFR 75 mL/min/1.73 m2 Normal >=59 [facility] Comment on above: Order Comment: Order added by Discern Expert. Performed By: #### 1 6975217 ####[facility] [address] [place] [address] TBH UA (CLEAN/CATCH) MICROSC OPIC IF INDICATEon 01-23-2024 BILIRUBIN URINE Negative NEGATIVE [facility] BLOOD URINE Negative NEGATIVE [facility] Clarity (U) CLEAR CLEAR [facility] Color (U) LT. YELLOW YELLOW [facility] GLUCOSE URINE UA Negative NEGATIVE mg/dL [facility] Ketones Ql (U) Negative NEGATIVE mg/dL [facility] Leukocyte esterase Test strip Ql (U) Negative NEGATIVE [facility] NITRITE URINE Negative NEGATIVE [facility] pH (U) 6.5 [pH] 5.0 - 9.0 [facility] PROTEIN URINE Negative NEG/TRACE mg/dL [facility] SPECIFIC GRAVITY URINE 1.010 1.005 - 1.025 [facility] URINE MICROSCOPIC INDICATED NO [facility] UROBILINOGEN URINE 0.2 EU/dL 0.2 - 1.0 EU/dL [facility]ISYNC [facility] CNPNon 12-19-2023 JASMIN Telephone (MARK) YAMILKA VASQUEZ ([id number]) 1970 F Date Time Provider Department 12/19/23 NURSE [facility] During your visit today, we [...] exam [Z00.6] 11/27/2012 Encounter Status:Closed by TEAGAN SHE ROSE on 12/19/23 Normal [facility] MR SHOULDER LEFT WO IV CONTR [...] Previous MRI 7-8 years ago So 08-21-2023 [facility] YAMILKA VASQUEZ ([id number]) 1970 F Date Time Provider Department 08/21/23 JESSICA CLARKE [facility] During your visit today, we recorded the following information about you: Renuka Ellison 08/21/2023 4:19 PM Signed Kriss Call Name of caller : Yamilka Vasquez Relationship to patient: Self Return call phone number : [phone] Reason for call : Other : Brief [...] Fully Assessed Reason for Visit: Patient Question [1478] Primary Visit Diagnosis:Cervical stenosis of spine [M48.02] Order(s):CONSULT TO SPINE SURGERY [[id number]] Order #: [id number]: 1 FUTURE Prescriptions as of 08/22/2023 - [...] Encounter Status:Closed by ELIZABETH VICTORIA on 08/22/23 [facility]QUE[facility] ([id number]) 1970 F Date Time Provider Department 07/15/23 JESSICA CLARKE During your visit today, we recorded the following information about you: Anjelica Alba 07/15/2023 3:20 PM Signed Mcintosh Call Name of caller : Steffanie Relationship to patient: Caregiver Return call phone number : appointments Reason for call : Order for MRI needed for Brain and Cervical Jessica Clarke PA-C 07/16/2023 1:10 PM Signed She only needs brain MRI since c-spine MRI was completed locally outside [facility] in April. Orders already placed Elizabeth Victoria RN 07/16/2023 2:21 PM Signed Called patient, no answer. Message left to return call to office when able. MOE Spencer Megan A, RN 07/17/2023 9:04 AM Signed Called patient, no answer. Message left indicating [employer] message would be sent with reason for [...] sclerosis (HCC) [G35] Order(s):MRI BRAIN WO/W IVCON [[id number]] Order #: [id number] FUTURE iv contrast (will be provided with [...] Status:Closed by ELIZABETH VICTORIA on 07/17/23 Normal [facility] CNOVon 07-10-2023 CNOV Office Visit (PAINLN ) YAMILKA VASQUEZ ([id number]) 1970 F Date Time Provider Department 07/10/23 6:00 PM [facility] PAINLN During your visit today, we recorded the following information about you: Pulse Weight Height 89/minute 134.3 kg 1.676 m Paris Tol[place], DO 07/12/2023 11:26 AM Signed [facility] Initial Evaluation July 10, 2023 This appointment was requested by Jessica Clarke PA-C, for my medical opinion regarding the evaluation and management of the patient's Yamilka Vasquez problems, and my final recommendations will be communicated to the requesting health care provider by way of the shared medical record for internal providers or letter via the [employer] for external providers. SUBJECTIVE: Yamilka Vasquez a 53 year old presents to [facility] Department, accompanied by self [...] PT several years ago (+) relief Chris [place] Alcohol Abuse - No Drug Abuse - [...] No history of dysuria, frequency or incontinence SKIP MINER: Negative for abnormal vaginal bleeding, abnormal vaginal discharge MUSCULOSKELETAL: Negative for joint pain or swelling, back pain or musc (more content not included)... Normal [facility] CBC W Auto Differential pane l (Bld)on 05-22-2023 Basophils (Bld) [#/Vol] 0.05 10*3/uL Normal <0.11 [facility] Comment on above: Order Comment: Speci men Type: BLOOD SPECIMENOrdering Facility: [facility] Address: [address] [place] [address] Performed By: #### 5 7021-8 ####[facility] LABCLIA [id number] [place] [address] [place] Basophils/100 WBC (Bld) 0.5 % Normal [facility] Comment on above: Order Comment: Speci men Type: BLOOD SPECIMENOrdering Facility: [facility] Address: [address] [place] [address] Performed By: #### 5 7021-8 ####[facility] LABCLIA [id number] [place] [address] [place] Differential cell count method Nom (Bld) Auto Normal [facility] Comment on above: Order Comment: Speci men Type: BLOOD SPECIMENOrdering Facility: [facility] Address: [address] [place] [address] Performed By: #### 5 7021-8 ####[facility] LABCLIA [id number] [place] [address] [place] Eosinophils (Bld) [#/Vol] 0.19 10*3/uL Normal <0.46 [facility] Comment on above: Order Comment: Speci men Type: BLOOD SPECIMENOrdering Facility: [facility] Address: [address] [place] [address] Performed By: #### 5 7021-8 ####[facility] LABCLIA [id number] [place] [address] [place] Eosinophils/100 WBC (Bld) 2.1 % Normal [facility] Comment on above: Order Comment: Speci men Type: BLOOD SPECIMENOrdering Facility: [facility] Address: [address] [place] [address] Performed By: #### 5 7021-8 ####[facility] LABCLIA [id number] [place] [address] [place] Erythrocyte distribution width (RBC) [Ratio] 15.5 % High 11.5-15.0 [facility] Comment on above: Order Comment: Speci men Type: BLOOD SPECIMENOrdering Facility: [facility] Address: [address] [place] [address] Performed By: #### 5 7021-8 ####[facility] LABCLIA [id number] [place] [address] [place] Hematocrit (Bld) [Volume fraction] 42.1 % Normal 36.0-46.0 [facility] Comment on above: Order Comment: Speci men Type: BLOOD SPECIMENOrdering Facility: [facility] Address: [address] [place] [address] Performed By: #### 5 7021-8 ####[facility] LABIA [id number] [place] [address] [place] Hemoglobin (Bld) [Mass/Vol] 12.9 g/dL Normal 11.5-15.5 [facility] Comment on above: Order Comment: Speci men Type: BLOOD SPECIMENOrdering Facility: [facility] Address: [address] [place] [address] Performed By: #### 5 7021-8 ####[facility] LABIA [id number] [place] [address] [place] Immature granulocytes (Bld) [#/Vol] 0.04 10*3/uL Normal <0.10 [facility] Comment on above: Order Comment: Speci men Type: BLOOD SPECIMENOrdering Facility: [facility] Address: [address] [place] [address] Performed By: #### 5 7021-8 ####[facility] LABIA [id number] [place] [address] [place] Immature granulocytes/100 WBC (Bld) 0.4 % Normal [facility] Comment on above: Order Comment: Speci men Type: BLOOD SPECIMENOrdering Facility: [facility] Address: [address] [place] [address] Performed By: #### 5 7021-8 ####[facility] LABCLIA [id number] [place] [address] [place] Lymphocytes (Bld) [#/Vol] 0.82 10*3/uL Low 1.00-4.00 [facility] Comment on above: Order Comment: Speci men Type: BLOOD SPECIMENOrdering Facility: [facility] Address: [address] [place] [address] Performed By: #### 5 7021-8 ####[facility] LABCLIA [id number] [place] [address] [place] Lymphocytes/100 WBC (Bld) 9.0 % Normal [facility] Comment on above: Order Comment: Speci men Type: BLOOD SPECIMENOrdering Facility: [facility] Address: [address] [place] [address] Performed By: #### 5 7021-8 ####[facility] LABCLIA [id number] [place] [address] [place] MCH (RBC) [Entitic mass] 26.9 pg Normal 26.0-34.0 [facility] Comment on above: Order Comment: Speci men Type: BLOOD SPECIMENOrdering Facility: [facility] Address: [address] [place] [address] Performed By: #### 5 7021-8 ####[facility] LABCLIA [id number] [place] [address] [place] MCHC (RBC) [Mass/Vol] 30.6 g/dL Normal 30.5-36.0 [facility] Comment on above: Order Comment: Speci men Type: BLOOD SPECIMENOrdering Facility: [facility] Address: [address] [place] [address] Performed By: #### 5 7021-8 ####[facility] LABCLIA [id number] [place] [address] [place] MCV (RBC) [Entitic vol] 87.9 fL Normal 80.0-100.0 [facility] Comment on above: Order Comment: Speci men Type: BLOOD SPECIMENOrdering Facility: [facility] Address: [address] [place] [address] Performed By: #### 5 7021-8 ####[facility] LABCLIA [id number] [place] [address] [place] Monocytes (Bld) [#/Vol] 0.93 10*3/uL High <0.87 [facility] Comment on above: Order Comment: Speci men Type: BLOOD SPECIMENOrdering Facility: [facility] Address: [address] [place] [address] Performed By: #### 5 7021-8 ####[facility] LABCLIA [id number] [place] [address] [place] Monocytes/100 WBC (Bld) 10.2 % Normal [facility] Comment on above: Order Comment: Speci men Type: BLOOD SPECIMENOrdering Facility: [facility] Address: [address] [place] [address] Performed By: #### 5 7021-8 ####[facility] LABCLIA [id number] [place] [address] [place] Neutrophils (Bld) [#/Vol] 7.07 10*3/uL Normal 1.45-7.50 [facility] Comment on above: Order Comment: Speci men Type: BLOOD SPECIMENOrdering Facility: [facility] Address: [address] [place] [address] Performed By: #### 5 7021-8 ####[facility] LABCLIA [id number] [place] [address] [place] Neutrophils/100 WBC (Bld) 77.8 % Normal [facility] Comment on above: Order Comment: Speci men Type: BLOOD SPECIMENOrdering Facility: [facility] Address: [address] [place] [address] Performed By: #### 5 7021-8 ####[facility] LABCLIA [id number] [place] [address] [place] Nucleated RBC (Bld) [#/Vol] 10*3/uL Normal <0.01 [facility] Comment on above: Order Comment: Speci men Type: BLOOD SPECIMENOrdering Facility: [facility] Address: [address] [place] [address] Performed By: #### 5 7021-8 ####[facility] LABCLIA [id number] [place] [address] [place] Nucleated RBC/100 WBC (Bld) [Ratio] 0.0 /100 WBC Normal [facility] Comment on above: Order Comment: Speci men Type: BLOOD SPECIMENOrdering Facility: [facility] Address: [address] [place] [address] Performed By: #### 5 7021-8 ####[facility] LABCLIA [id number] [place] [address] [place] Platelet mean volume (Bld) [Entitic vol] 12.4 fL Normal 9.0-12.7 [facility] Comment on above: Order Comment: Speci men Type: BLOOD SPECIMENOrdering Facility: [facility] Address: [address] [place] [address] Performed By: #### 5 7021-8 ####[facility] LABCLIA [id number] [place] [address] [place] Platelets (Bld) [#/Vol] 208 10*3/uL Normal 150-400 [facility] Comment on above: Order Comment: Speci men Type: BLOOD SPECIMENOrdering Facility: [facility] Address: [address] [place] [address] Performed By: #### 5 7021-8 ####[facility] LABCLIA [id number] [place] [address] [place] RBC (Bld) [#/Vol] 4.79 10*6/uL Normal 3.90-5.20 [facility] Comment on above: Order Comment: Speci men Type: BLOOD SPECIMENOrdering Facility: [facility] Address: [address] [place] [address] Performed By: #### 5 7021-8 ####[facility] LABCLIA [id number] [place] [address] [place] WBC (Bld) [#/Vol] 9.10 10*3/uL Normal 3.70-11.00 [facility] Comment on above: Order Comment: Speci men Type: BLOOD SPECIMENOrdering Facility: [facility] Address: [address] [place] [address] Performed By: #### 5 7021-8 ####[facility] LABCLIA [id number] [place] [address] [place] CD19 ABSOLUTE COUNTon 2023 CD3-CD19+ cells (Bld) [#/Vol] 219 cells/uL Normal 75-660 [facility] Comment on above: Order Comment: Speci men Type: BLOOD SPECIMENOrdering Facility: [facility] Address: [address] [place] [address] Performed By: #### A BS19 ####[facility] LABIA [id number] [place] [address] [place] CD3-CD19+ cells/100 cells (Bld) 23 % High 5-22 [facility] Comment on above: Order Comment: Speci men Type: BLOOD SPECIMENOrdering Facility: [facility] Address: [address] [place] [address] Performed By: #### A BS19 ####[facility] LABIA [id number] [place] [address] [place] Lymphocytes/100 WBC FC (Bld) Normal [facility] Comment on above: Order Comment: Speci men Type: BLOOD SPECIMENOrdering Facility: [facility] Address: [address] [place] [address] Performed By: #### A BS19 ####[facility] LABIA [id number] [place] [address] [place] CNOVon 05-22-2023 CNOV Office Visit (NTLORA ) YAMILKA VASQUEZ ([id number]) 1970 F Date Time Provider Department 05/22/23 8:00 AM INFUSION [place] CHAIR 2 NTLORA [...] her tubes tied. Referring Provider: SARTHAK ESCOBAR [[id number]] Allergies As of Date: 05/22/2023 (No Known Allergies) Date Reviewed: 10/11/2022 Reviewed by: Maryam Cabrera, MOE - Fully Assessed Primary Visit Diagnosis:Multiple sclerosis (HCC) [G35] Other Visit Diagnosis:Multiple sclerosis, relapsing-remitting (HCC) [G35] Order(s):TREATMENT PARAMETER-NOT NEEDED [[id number]] Order #: [id number]: 1 BCN CD20 NURSING COMMUNICATION [[id number]] Order #: [id number]: 1 BCN NURSING COMMUNICATION [7497967] Order #: [id number]: 1 CD19 ABSOLUTE COUNT [SQABS19] Order #: [id number] FUTURE [] methylPREDNISolone sod succinate(PF) 100 mg injection (SOLU-Medrol)Disp: Rfl: [] acetaminophen 1,000 mg tab(s) (TYLENOL)Disp: Rfl: [] diphenhydrAMINE 50 mg (BENADRYL)Disp: Rfl: [] ocrelizumab 600 mg in NaCl 0.9% 500 mL (OCREVUS)Disp: Rfl: CBC + DIFF [SQCBCDIF] Order #: [id number]. #:[id number] COMP METABOLIC PANEL [SQCMP] Order #: [id number]. #:[id number] IGG [SQIGG] Order #: [id number]. #:[id number] IGM [SQIGM] Order #: [id number]. #:[id number] CD19 ABSOLUTE COUNT [SQABS19] Order #: [id number]. #:[id number] Prescriptions as of 05/23/2023 - lisinopril (ZESTRIL) [...] Status:Closed by SHE BRAND on 05/22/23 Normal [facility] Comprehensive metabolic 2000 panelon 05-22-2023 Albumin [Mass/Vol] 4.0 g/dL Normal 3.9-4.9 [facility] Comment on above: Order Comment: Speci men Type: BLOOD SPECIMENOrdering Facility: [facility] Address: [address] [place] [address] [place] [address] Performed By: #### 2 4323-8 ####[facility] LABCLIA [id number] [place] [address] [place] ALP [Catalytic activity/Vol] 90 U/L Normal 34-123 [facility] Comment on above: Order Comment: Speci men Type: BLOOD SPECIMENOrdering Facility: [facility] Address: [address] [place] [address] Performed By: #### 2 4323-8 ####[facility] LABCLIA [id number] [place] [address] [place] ALT [Catalytic activity/Vol] 23 U/L Normal 7-38 [facility] Comment on above: Order Comment: Speci men Type: BLOOD SPECIMENOrdering Facility: [facility] Address: [address] [place] [address] Performed By: #### 2 4323-8 ####[facility] LABCLIA [id number] [place] [address] [place] Anion gap [Moles/Vol] 13 mmol/L Normal 9-18 [facility] Comment on above: Order Comment: Speci men Type: BLOOD SPECIMENOrdering Facility: [facility] Address: [address] [place] [address] Performed By: #### 2 4323-8 ####[facility] LABCLIA [id number] [place] [address] [place] AST [Catalytic activity/Vol] 25 U/L Normal 13-35 [facility] Comment on above: Order Comment: Speci men Type: BLOOD SPECIMENOrdering Facility: [facility] Address: [address] [place] [address] Performed By: #### 2 4323-8 ####[facility] LABCLIA [id number] [place] [id number] [place] Bilirubin [Mass/Vol] 0.3 mg/dL Normal 0.2-1.3 [facility] Comment on above: Order Comment: Speci men Type: BLOOD SPECIMENOrdering Facility: [facility] Address: [address] [place] [address] Performed By: #### 2 4323-8 ####[facility] LABCLIA [id number] [address] [address] [place] Calcium [Mass/Vol] 9.4 mg/dL Normal 8.5-10.2 [facility] Comment on above: Order Comment: Speci men Type: BLOOD SPECIMENOrdering Facility: [facility] Address: [address] [place] [address] Performed By: #### 2 4323-8 ####[facility] LABCLIA [id number] [place] [address] [place] Chloride [Moles/Vol] 103 mmol/L Normal 97-105 [facility] Comment on above: Order Comment: Speci men Type: BLOOD SPECIMENOrdering Facility: [facility] Address: [address] [place] [address] Performed By: #### 2 4323-8 ####[facility] LABCLIA [id number] [place] [address] [place] CO2 [Moles/Vol] 27 mmol/L Normal 22-30 [facility] Comment on above: Order Comment: Speci men Type: BLOOD SPECIMENOrdering Facility: [facility] Address: [address] [place] [address] Performed By: #### 2 4323-8 ####[facility] LABCLIA [id number] [place] [id number] [place] Creatinine [Mass/Vol] 1.04 mg/dL High 0.58-0.96 [facility] Comment on above: Order Comment: Speci men Type: BLOOD SPECIMENOrdering Facility: [facility] Address: [address] [place] [address] Performed By: #### 2 4323-8 ####[facility] LABCLIA [id number] [place] [address] [place] Creatinine and Glomerular filtration rate.predicted panel (S/P/Bld) 64 mL/min/1.73m??? Normal >=60 [facility] Comment on above: Order Comment: Rebeca ruelas Type: BLOOD SPECIMENOrdering Facility: [facility] Address: [address] [place] [address] Result Comment: Karyn mated Glomerular Filtration Rate [...] actual GFR. Performed By: #### 2 4323-8 ####[facility] LABIA [id number] [place] [address] [place] Glucose [Mass/Vol] 88 mg/dL Normal 74-99 [facility] Comment on above: Order Comment: Rebeca ruelas Type: BLOOD SPECIMENOrdering Facility: [facility] Address: [address] [place] [address] Result Comment: The [place] [employer] (ADA) provides guidance for cutoff [...] Standards of Medical Care in Diabetes 2016, [place] [employer]. Diabetes Care. 2016.39(Suppl 1). Performed By: #### 2 4323-8 ####[facility] LABCLIA [id number] [place] [address] [place] Potassium [Moles/Vol] 3.7 mmol/L Normal 3.7-5.1 [facility] Comment on above: Order Comment: Speci men Type: BLOOD SPECIMENOrdering Facility: [facility] Address: [address] [place] [address] Performed By: #### 2 4323-8 ####[facility] LABCLIA [id number] [place] [address] [place] Protein [Mass/Vol] 7.1 g/dL Normal 6.3-8.0 [facility] Comment on above: Order Comment: Speci men Type: BLOOD SPECIMENOrdering Facility: [facility] Address: [address] [place] [address] Performed By: #### 2 4323-8 ####[facility] LABCLIA [id number] [place] [address] [place] Sodium [Moles/Vol] 143 mmol/L Normal 136-144 [facility] Comment on above: Order Comment: Speci men Type: BLOOD SPECIMENOrdering Facility: [facility] Address: [address] [place] [address] Performed By: #### 2 4323-8 ####[facility] LABCLIA [id number] [place] [address] [place] Urea nitrogen [Mass/Vol] 17 mg/dL Normal 7-21 [facility] Comment on above: Order Comment: Speci men Type: BLOOD SPECIMENOrdering Facility: [facility] Address: [address] [place] [address] Performed By: #### 2 4323-8 ####[facility] LABCLIA [id number] [place] [address] [place] IgG SerPl-mCncon 05-22-2023 IgG [Mass/Vol] 954 mg/dL Normal 700-1600 [facility] Comment on above: Order Comment: Speci men Type: BLOOD SPECIMENOrdering Facility: [facility] Address: [address] [place], [place] [id number] Performed By: #### 2 465-3, 2472-9 ####[facility] LABCLIA [id number] [place] [id number] [place] IgM SerPl-mCncon 05-22-2023 IgM [Mass/Vol] 74 mg/dL Normal 40-230 [facility] Comment on above: Order Comment: Speci men Type: BLOOD SPECIMENOrdering Facility: [facility]: [address] [facility] [place] [id number] Performed By: #### 2 465-3, 2472-9 ####[facility] LABCLIA [id number] [place] [id number] [place] So 05-14-2023 CNPN Telephone (NIQ) YAMILKA VASQUEZ ([id number]) 1970 F Date Time Provider Department 05/14/23 [...] Allergies) Date Reviewed: 10/11/2022 Reviewed by: Maryam Cabrera RN - Fully Assessed Reason for Visit: [...] Status:Closed by MICHELLE HAINES on 05/14/23 Normal [facility] PREG HCG QUALon 09-21-2022 , QUAL Negative Normal NEGATIVE [facility] Comment on above: Performed By: #### P REG #### [facility] [address] [place] [address] Dr. Angel Li IMMUNOGLOBULIN IGG QUANTITAT IVEon 06-06-2022 Immunoglobulin G, Qn, Serum 1032 mg/dL Normal 586-1602 [facility] Comment on above: Performed By: #### I MIGGQN #### [facility] [address] [place] [address] Dr. Angel Li IMMUNOGLOBULIN IGM QUANTITAT IVEon 06-06-2022 Immunoglobulin M, Qn, Serum 46 mg/dL Normal 26-217 [facility] Comment on above: Performed By: #### I MIGMQN #### [facility] [address] [place] [address] Dr. Angel Li CBC AUTO DIFFon 06-05-2022 BASO # 0.0 103/ul Normal 0.0-0.1 [facility] Comment on above: Performed By: #### C BC #### [facility] [address] [place] [address] Dr. Angel Li Basophils/100 WBC (Bld) 0.5 % Normal 0.2-2.0 [facility] Comment on above: Performed By: #### C BC #### [facility] [address] [place] [address] Dr. Angel Li EO # 0.2 103/ul Normal 0.0-0.7 [facility] Comment on above: Performed By: #### C BC #### [facility] [address] [place] [address] Dr. Angel Li Eosinophils/100 WBC (Bld) 2.6 % Normal 0.9-7.0 [facility] Comment on above: Performed By: #### C BC #### [facility] [address] [place] [address] Dr. Angel Li Erythrocyte distribution width (RBC) [Ratio] 14.5 % Normal 11.0-15.0 [facility] Comment on above: Performed By: #### C BC #### [facility] [address] [place] [address] Dr. Angel Li Hematocrit (Bld) [Volume fraction] 36.5 % Normal 36.0-48.0 [facility] Comment on above: Performed By: #### C BC #### [facility] [address] [place] [address] Dr. Angel Li Hemoglobin (Bld) [Mass/Vol] 11.8 g/dL Critically low 12.0-16.0 [facility] Comment on above: Performed By: #### C BC #### [facility] [address] [place] [address] Dr. Angel Li IG # 0.03 10e3/ul Normal 0.00-0.03 [facility] Comment on above: Performed By: #### C BC #### [facility] [address] [place] [address] Dr. Angel Li IG % 0.4 % Normal 0.0-0.5 [facility] Comment on above: Performed By: #### C BC #### [facility] [address] [place] [address] Dr. Angel Li LYMPH # 0.8 103/ul Critically low 1.2-3.8 [facility] Comment on above: Performed By: #### C BC #### [facility] [address] [place] [address] Dr. Angel Li Lymphocytes/100 WBC (Bld) 9.8 % Critically low 20.5-60.0 [facility] Comment on above: Performed By: #### C BC #### [facility] [address] [place] [address] Dr. Angel Li MANUAL DIFF REQ NO Normal [facility] Comment on above: Performed By: #### C BC #### [facility] [address] [place] [address] Dr. Angel Li MCH (RBC) [Entitic mass] 29.0 pg Normal 26.7-34.0 [facility] Comment on above: Performed By: #### C BC #### [facility] [address] [place] [address] Dr. Angel Li MCHC (RBC) [Mass/Vol] 32.3 g/dL Normal 29.9-35.2 [facility] Comment on above: Performed By: #### C BC #### [facility] [address] [place] [address] Dr. Angel Li MCV (RBC) [Entitic vol] 89.7 fL Normal 81.0-99.0 [facility] Comment on above: Performed By: #### C BC #### [facility] [address] [place] [address] Dr. Angel Li MONO # 1.0 103/ul Critically high 0.3-0.8 [facility] Comment on above: Performed By: #### C BC #### [facility] [address] [place] [address] Dr. Angel Li Monocytes/100 WBC (Bld) 13.0 % Critically high 1.7-12.0 [facility] Comment on above: Performed By: #### C BC #### [facility] [address] [place] [address] Dr. Angel Li NEUT # 5.9 103/ul Normal 1.4-6.5 [facility] Comment on above: Performed By: #### C BC #### [facility] [address] [place] [address] Dr. Angel Li Neutrophils/100 WBC (Bld) 73.7 % Normal 43.0-75.0 [facility] Comment on above: Performed By: #### C BC #### [facility] [address] [place] [address] Dr. Angel Li Platelet mean volume (Bld) [Entitic vol] 11.6 fL Normal 9.5-13.5 [facility] Comment on above: Performed By: #### C BC #### [facility] [address] [place] [address] Dr. Angel Li PLT 200 103/ul Normal 150-450 [facility] Comment on above: Performed By: #### C BC #### [facility] [address] [place] [address] Dr. Angel Li RBC 4.07 106/ul Critically low 4.20-5.40 [facility] Comment on above: Performed By: #### C BC #### [facility] [address] [place] [address] Dr. Angel Li WBC 8.0 103/ul Normal 4.0-11.0 [facility] Comment on above: Performed By: #### C BC #### [facility] [address] [place] [address] Dr. Angel Li PROF 14(COMP METB)on 023 Albumin [Mass/Vol] 3.4 g/dL Normal 3.4-5.0 [facility] Comment on above: Performed By: #### C MP #### [facility] [address] [place] [address] Dr. Angel Li Albumin/Globulin [Mass ratio] 0.9 {ratio} Normal [facility] Comment on above: Performed By: #### C MP #### [facility] [address] [place] [address] Dr. Angel Li ALP [Catalytic activity/Vol] 122 U/L Critically high 46-116 [facility] Comment on above: Performed By: #### C MP #### [facility] [address] [place] [address] Dr. Angel Li ALT [Catalytic activity/Vol] 35 U/L Normal 14-59 [facility] Comment on above: Performed By: #### C MP #### [facility] [address] [place] [address] [address] Angel Li Anion gap [Moles/Vol] 9.7 mmol/L Normal [facility] Comment on above: Performed By: #### C MP #### [facility] [address] [place] [address] [address] Angel Li AST [Catalytic activity/Vol] 32 U/L Normal 15-37 [facility] Comment on above: Performed By: #### C MP #### [facility] [address] [place] [address] [address] Angel Li Bilirubin [Mass/Vol] 0.4 mg/dL Normal 0.2-1.0 [facility] Comment on above: Performed By: #### C MP #### [facility] [address] [place] [address] [address] Angel Li Calcium [Mass/Vol] 9.0 mg/dL Normal 8.5-10.1 [facility] Comment on above: Performed By: #### C MP #### [facility] [address] [place] [address] Dr. Angel Li Chloride [Moles/Vol] 103 mmol/L Normal 98-107 [facility] Comment on above: Performed By: #### C MP #### [facility] [address] [place] [address] [address] Angel Li CO2 [Moles/Vol] 32.3 mmol/L Critically high 21.0-32.0 [facility] Comment on above: Performed By: #### C MP #### [facility] [address] [place] [address] [address] Angel Li Creatinine [Mass/Vol] 0.97 mg/dL Normal 0.55-1.02 [facility] Comment on above: Performed By: #### C MP #### [facility] [address] [place] [address] [address] Angel Li EGFR-AF GUINEAN >60 Normal >=60 [facility] Comment on above: Performed By: #### C MP #### [facility] [address] [place] [address] [address] Angel Li EGFR-NON AF GUINEAN =60 Normal >=60 [facility] Comment on above: Performed By: #### C MP #### [facility] [address] [place] [address] [address] Angel Li Globulin (S) [Mass/Vol] 3.7 g/dL Normal [facility] Comment on above: Performed By: #### C MP #### [facility] [address] [place] [address] [address] Angel Li Glucose [Mass/Vol] 87 mg/dL Normal 74-106 [facility] Comment on above: Performed By: #### C MP #### [facility] [address] [place] [address] [address] Angel Li Potassium [Moles/Vol] 4.0 mmol/L Normal 3.5-5.1 [facility] Comment on above: Performed By: #### C MP #### [facility] [address] [place] [address] [address] Angel Li Protein [Mass/Vol] 7.1 g/dL Normal 6.4-8.2 [facility] Comment on above: Performed By: #### C MP #### [facility] [address] [place] [address] [address] Angel Li Sodium [Moles/Vol] 141 mmol/L Normal 136-145 [facility] Comment on above: Performed By: #### C MP #### [facility] [address] [place] [address] [address] Angel Li Urea nitrogen [Mass/Vol] 11.0 mg/dL Normal 7.0-18.0 [facility] Comment on above: Performed By: #### C MP #### [facility] [address] [place] [address] [address] Angel Li Urea nitrogen/Creatinine [Mass ratio] 11.3 mg/mg Normal [facility] Comment on above: Performed By: #### C MP #### [facility] [address] [place] [address] Dr. Angel Li PAP ACOG PANEL 2: 30 to 65on 03-13-2022 . . Normal [facility] Comment on above: Result Comment: Perf ormed at: WB Performed By: #### 4 [id number] #### [facility] [address] [place] [address] Dr. Angel Li Age Gdln ACOG Testing 30-65 [facility] Comment on above: Performed By: #### 4 [id number] #### [facility] [address] [place] [address] Dr. Angel Li DIAGNOSIS: Comment [facility] Comment on above: Result Comment: NEGA TIVE FOR INTRAEPITHELIAL LESION OR MALIGNANCY. Performed at: WB Performed By: #### 4 [id number] #### [facility] [address] [place] [address] Dr. Angel Li HPV Aptima Negative Normal Negative [facility] Comment on above: Result Comment: This nucleic acid amplification test detects fourteen high-risk HPV types (16,18,31,33,35,39,45,51,52,56,58,59,66,68) without differentiation. Performed at: =G Performed By: #### 4 [id number] #### [facility] [address] [place] [address] Dr. Angel Li Methodology: Comment [facility] Comment on above: Result Comment: This liquid based ThinPrep(R) pap test was screened with the use of an image guided system. Performed at: WB Performed By: #### 4 [id number] #### [facility] [address] [place] [address] Dr. Angel Li Note: Comment Normal [facility] Comment on above: Result Comment: The Pap smear is a screening test designed to aid in the detection of premalignant and malignant conditions of the uterine cervix. It is not a diagnostic procedure and should not be used as the sole means of detecting cervical cancer. Both false-positive and false-negative reports do occur. . Performed at: WB Performed By: #### 4 [id number] #### [facility] [address] [place] [address] Dr. Angel Li Performed by: Comment Normal [facility] Comment on above: Result Comment: Shyanne Back, Underground Supervisor (ASCP) Performed at: WB Performed By: #### 4 [id number] #### [facility] [address] [place] [address] [address] Angel Li Specimen adequacy: Comment Normal [facility] Comment on above: Result Comment: Sati sfactory for evaluation. Endocervical and/or squamous metaplastic cells (endocervical component) are present. Performed at: WB Performed By: #### 4 [id number] #### [facility] [address] [place] [address] [address] Angel Li VAGINITIS/VAGINOSIS DNA PROB Marcelino 03-08-2022 Gracia species Negative Normal Negative [facility] Comment on above: Performed By: #### V AGINT #### [facility] [address] [place] [address] [address] Angel Li Gardnerella vaginalis Positive Abnormal Negative [facility] Comment on above: Performed By: #### V AGINT #### [facility] [address] [place] [address] [address] Angel Li Trichomonas vaginalis Negative Normal Negative [facility] Comment on above: Performed By: #### V AGINT #### [facility] [address] [place] [address] [address] Angel Li BRAIN & CERVICAL SPINE MRI D ISCRETE DATAon 11-14-2021 Brain Enhancing Lesions None [facility] Brain Interval Improvement None [facility] Brain New T2 Lesions [facility] Brain Other Significant MRI Findings None. [facility] Brain Parenchymal Volume Loss None [facility] Brain T2 [place] of Disease Moderate [facility] MRI BRAIN WO/W IVCONon 11-14 [facility] CBC W Auto Differential pane l (Bld)on 09-18-2021 Abs Immature Gran <0.03 <0.10 k/uL [facility] Basophils (Bld) [#/Vol] 0.03 10*3/uL <0.11 k/uL [facility] Basophils/100 WBC (Bld) 0.5 % [facility] Differential cell count method Nom (Bld) Auto [facility] Eosinophils (Bld) [#/Vol] 0.15 10*3/uL <0.46 k/uL [facility] Eosinophils/100 WBC (Bld) 2.4 % [facility] Erythrocyte distribution width (RBC) [Ratio] 14.2 % 11.5 - 15.0 % [facility] Hematocrit (Bld) [Volume fraction] 41.5 % 36.0 - 46.0 % [facility] Hemoglobin (Bld) [Mass/Vol] 12.9 g/dL 11.5 - 15.5 g/dL [facility] Immature Gran % 0.3 % [facility] Lymphocytes (Bld) [#/Vol] 0.60 10*3/uL Low 1.00 - 4.00 k/uL [facility] Lymphocytes/100 WBC (Bld) 9.7 % [facility] MCH (RBC) [Entitic mass] 29.3 pg 26.0 - 34.0 pg [facility] MCHC (RBC) [Mass/Vol] 31.1 g/dL 30.5 - 36.0 g/dL [facility] MCV (RBC) [Entitic vol] 94.3 fL 80.0 - 100.0 fL [facility] Monocytes (Bld) [#/Vol] 0.74 10*3/uL <0.87 k/uL [facility] Monocytes/100 WBC (Bld) 12.0 % [facility] Neutrophils (Bld) [#/Vol] 4.62 10*3/uL 1.45 - 7.50 k/uL [facility] Neutrophils/100 WBC (Bld) 75.1 % [facility] Nucleated RBC (Bld) [#/Vol] 10*3/uL <0.01 k/uL [facility] Nucleated RBC/100 WBC (Bld) [Ratio] 0.0 /100 WBC [facility] Platelet mean volume (Bld) [Entitic vol] 12.5 fL 9.0 - 12.7 fL [facility] Platelets (Bld) [#/Vol] 181 10*3/uL 150 - 400 k/uL [facility] RBC (Bld) [#/Vol] 4.40 10*6/uL 3.90 - 5.2 0 m/uL [facility] WBC (Bld) [#/Vol] 6.16 10*3/uL 3.70 - 11. 00 k/uL [facility] Comprehensive metabolic 2000 panelon 09-18-2021 Albumin [Mass/Vol] 3.8 g/dL Low 3.9 - 4.9 g/dL [facility] ALP [Catalytic activity/Vol] 114 U/L 34 - 123 U/L [facility] ALT [Catalytic activity/Vol] 16 U/L 7 - 38 U/L [facility] Anion gap [Moles/Vol] 11 mmol/L 9 - 18 mmol/L [facility] AST [Catalytic activity/Vol] 21 U/L 13 - 35 U/L [facility] Bilirubin [Mass/Vol] 0.4 mg/dL 0.2 - 1 .3 mg/dL [facility] Calcium [Mass/Vol] 9.0 mg/dL 8.5 - 10. 2 mg/dL [facility] Chloride [Moles/Vol] 102 mmol/L 97 - 10 5 mmol/L [facility] CO2 [Moles/Vol] 25 mmol/L 22 - 30 mmol/L [facility] Creatinine [Mass/Vol] 0.97 mg/dL High 0.58 - 0.96 mg/dL [facility] Estimated Glomerular Filtration Rate 70 mL/min/1.73m >=60 mL/min/1.73m [facility] Glucose [Mass/Vol] 60 mg/dL Low 74 - 99 mg/dL [facility] Potassium [Moles/Vol] 4.0 mmol/L 3.7 - 5.1 mmol/L [facility] Protein [Mass/Vol] 7.0 g/dL 6.3 - 8.0 g/dL [facility] Sodium [Moles/Vol] 138 mmol/L 136 - 144 mmol/L [facility] Urea nitrogen [Mass/Vol] 10 mg/dL 7 - 21 mg/dL [facility] LIPID PANEL BASICon 09-19-19 22 Cholesterol [Mass/Vol] 142 mg/dL <200 mg/dL [facility] Cholesterol in HDL [Mass/Vol] 39 mg/dL Low >39 [facility] Cholesterol in LDL [Mass/Vol] 72 mg/dL <100 mg/dL [facility] Cholesterol in LDL/Cholesterol in HDL [Mass ratio] 1.85 {ratio} <2.54 [facility] Cholesterol in VLDL [Mass/Vol] 31 mg/dL High <30 mg/dL [facility] Cholesterol non HDL [Mass/Vol] 103 mg/dL <130 mg/dL [facility] Cholesterol.total/Cho lesterol in HDL [Mass ratio] 3.64 {ratio} <5.10 [facility] Fasting Time 14 hours [facility] Triglyceride [Mass/Vol] 157 mg/dL High <150 mg/dL [facility] Antoni 09-05-2021 L - -------- Specimen: Received: 09/05/21 Status: KLEVER Graham Num: [id number] Spec Type: Surgical Subm Dr: Tyshawn Palencia MD Tissues: A Colon Biopsy (RANDOM COLON BX) B Colon - Polyp (TRANSVERSE) Procedures: HE Stain/4, Gross/Micro L4/2 -------- Patient Age/Sex Location Account Attending Physician -------- Yamilka Vasquez 51/F [id number] Tyshawn Palencia MD -------- SPEC NUM: RECD: 09/05/21 STATUS: KLEVER GRAHAM NUM: [id number] FELECIA: 09/05/21- SUBM DR: Tyshawn Palencia MD ENTERED: 09/05/21 [facility] DR: SPEC TYPE: Surgical DEPT: S ORDERED: [...] 10% Neutral Buffered Formalin (SM/YJ) -------- Specimen: Received: 09/05/21 Status: KLEVER Graham Num: [id number] Spec Type: Surgical Subm Dr: Tyshawn Palencia MD Tissues: A Colon Biopsy (RANDOM COLON BX) B Colon - Polyp (TRANSVERSE) Procedures: HE Stain/4, Gross/Micro L4/2 -------- Patient: Yamilka Vasquez [id number] (Continued) -------- Specimen: Received: 09/05/21 (Continued) Signed (signature on file) Mikie Castanon MD 09/06/21 1550 -------- Specimen: Received: 09/05/21 Status: KLEVER Graham Num: [id number] Spec Type: Surgical Subm Dr: Tyshawn Palencia MD Tissues: A Colon Biopsy (RANDOM COLON BX) B Colon - Polyp (TRANSVERSE) Procedures: HE Stain/4, Gross/Micro L4/2 -------- Patient: Yamilka Vasquez [id number] (Continued) -------- Specimen: Received: 09/05/21 (Continued) Microscopic Description A. Two glass slides with H E stained material have been examined. The microscopic findings support the above pathologic diagnosis. B. Two glass slides with H E stained material have been examined. The microscopic findings support the above pathologic diagnosis. CPT Codes 06900?2 -------- -------- Specimen: Received: 09/05/21 Status: MERLYAurora Graham Num: [id number] Spec Type: Surgical Subm Dr: Tyshawn Palencia MD Tissues: A Colon Biopsy (RANDOM COLON BX) B Colon - Polyp (TRANSVERSE) Procedures: HE Stain/4, Gross/Micro L4/2 -------- Patient: Yamilka Vasquez [id number] (Continued) -------- Signed (signature on file) Mikie [...] developed and its performance characteristic determined by [employer] and validated at [facility]. This test has not been FDA [...] for SARS Antigen by [employer] PERFORMED BY: [place] [address] PATHOLOGIST VIROLOGY TEACHER JESSICA SMITH M.D. Normal [facility] Comment on above: Performed By: #### S OFIANEG, COVID-19 JAMILA #### [facility] [address] [place] [address] COVID-19 SOFIAOrdered By: Mague Palencia on 09-01-2021 SARS-CoV+SARS-CoV-2 (COVID-19) Ag IA.rapid Ql (Resp) Negative Negative [facility] [facility] Comment on above: This is a duplicate Jamila SARS Antigen (ELAINA) result to be used for statistical tracking purpose only. No Panel InformationOrdered By: Tyshawn Palencia on 09-01-2021 SARS Antigen (LFIA) [facility] Jamila Ag Negativeon 09-02-19 22 Jamila Ag Negative Negative Normal Negative [facility] Comment on above: Result Comment: This is a duplicate Jamila SARS Antigen (ELAINA) result to be used for statistical tracking purpose only. PERFORMED BY: [place] [address] PATHOLOGIST VIROLOGY TEACHER JESSICA SMITH M.D. Performed By: #### S OFIANEG, COVID-19 JAMILA #### [facility] [address] [place] [address] CBC W/AUTO DIFFon 05-07-2017 % NEUTROPHILS 69.5 [...] Glucose mass conc 78 mg/dL Normal 70-100 [facility] Comment on above: Result Comment: DIAG NOSTIC THRESHOLDS FOR DIABETES AND IMPAIRED FASTING GLUCOSE (IFG) FASTING PLASMA GLUCOSE NORMAL <100 mg/dL IFG 100-125 mg/dL DIABETES >/= 126 mg/dL Potassium molar conc 4.1 mmol/L Normal 3.5-5.4 [facility] Sodium 144 mmol/L Normal 134-147 [facility] T. PROTEIN 6.8 g/dl Normal 5.8-8.0 [facility] Urea nitrogen 14 mg/dL Normal 10-20 [facility] LIPID PANEL (INCLUDES CALCUL ATED LDL)on 05-07-2017 Cholesterol 172 mg/dL Normal <200 [facility] Cholesterol to HDL Ratio 3.1 {ratio} Normal <5 [facility] HDL-CHOL 56 mg/dl Normal 40-60 [facility] Comment on above: Result Comment: HDL <40 mg/dL IS A RISK FACTOR FOR CORONARY HEART DISEASE. HDL >60 mg/dL IS A NEGATIVE RISK FACTOR FOR CORONARY HEART DISEASE. LDL to HDL Ratio 1.7 Normal <3.5 [facility] LDL-CHOL, CALCULATED 95 mg/dL Normal <130 [facility] Comment on above: Result Comment: LDL CHOLESTEROL REFERENCE RANGE FOR 0-19 YEARS: DESIRABLE <110 mg/dL, BORDERLINE 110-129, HIGH RISK >130 LDL CHOLESTEROL REFERENCE RANGE FOR ADULTS: DESIRABLE <100 mg/dL, BORDERLINE 130-159, HIGH RISK >160REFERENCE RANGES REVISED 10/28/15 ACCORDING TO NCEP GUIDELINES Triglyceride 107 mg/dL Normal <150 [facility] VLDL-CHOL, CALCULATED 21 mg/dL Normal <30 [facility] TSH WITH FT4 REFLEXon 2016 Thyroid stimulating hormone (TSH) 1.480 uIU/mL Normal 0.40-4.40 [facility] Comment on above: Result Comment: [facility] [address] [address]Phbrjkiidk Director: FERMÍN MarinelliIA No. [id number] [facility] Accreditation No. [id number] CARDIOPULMONARY REPORT CLDon 12-24-2016 CARDIOPULMONARY REPORT CLD [place] [id number] [address] [place], [place] [address] [place], [place] [address]Ariqibd Name: YAMILKA VASQUEZ Visit ID: [id number] Record #: [id number] : 1970CC: Frances Aguilera CNP Pulmonary Function [...] seen. Clinical correlation is recommended. Author: CAROL Rao/jerry/[id number] T: 12/24/2016 10:41 cc: Frances Aguilera CNP Electronically Authenticated and Edited by:Jacki Hess MD On 12/31/2016 09:16 AM EDT Normal [facility] Vital Signs Date Time Vital Sign Value Performing Clinician Facility 08-18-2024 09:18-0400 Body mass index (BMI) [Ratio] 44.96 kg/m2 Kristin Mesaz LIFTER/DRIVER Work Phone: [facility] 08-18-2024 09:18-0400 Body temperature 98.2 [degF] Kristin Ascencioholz LIFTER/DRIVER Work Phone: [facility] 08-18-2024 09:18-0400 Body weight 122.56 kg Kristin Mesaz LIFTER/DRIVER Work Phone: [facility] 08-18-2024 09:18-0400 Diastolic blood pressure 80 mm[Hg] Kristin Sonuholz LIFTER/DRIVER Work Phone: [facility] 08-18-2024 09:18-0400 Heart rate 98 /min Kristin Mesaz LIFTER/DRIVER Work Phone: [facility] 08-18-2024 09:18-0400 Respiratory rate 24 /min Kristin Mesaz LIFTER/DRIVER Work Phone: [facility] 08-18-2024 09:18-0400 SaO2% (BldA) [Mass fraction] 95 % Kristin Mesaz LIFTER/DRIVER Work Phone: [facility] 08-18-2024 09:18-0400 Systolic blood pressure 110 mm[Hg] Kristin Mesaz LIFTER/DRIVER Work Phone: [facility] 06-17-2024 09:33-0500 Body mass index (BMI) [Ratio] 47.09 kg/m2 Sherrie Boone LIFTER/DRIVER Work Phone: [facility] 06-17-2024 09:33-0500 Body temperature 97.7 [degF] Sherrie Boone LIFTER/DRIVER Work Phone: [facility] 06-17-2024 09:33-0500 Body weight 128.37 kg Sherrie Boone LIFTER/DRIVER Work Phone: [facility] 06-17-2024 09:33-0500 Diastolic blood pressure 82 mm[Hg] Sherrie Boone LIFTER/DRIVER Work Phone: [facility] 06-17-2024 09:33-0500 Heart rate 100 /min Sherrie Rothmantrick LIFTER/DRIVER Work Phone: [facility] 06-17-2024 09:33-0500 Respiratory rate 16 /min Sherrie Rothmantrick LIFTER/DRIVER Work Phone: [facility] 06-17-2024 09:33-0500 SaO2% (BldA) [Mass fraction] 97 % Sherrie Augustink LIFTER/DRIVER Work Phone: [facility] 06-17-2024 09:33-0500 Systolic blood pressure 120 mm[Hg] Sherrie Rothmantrick LIFTER/DRIVER Work Phone: [facility] 05-18-2024 09:18-0500 Body height 165.1 cm Kristin Mesaz LIFTER/DRIVER Work Phone: [facility] 05-18-2024 09:18-0500 Body mass index (BMI) [Ratio] 46.93 kg/m2 Kristin Mesaz LIFTER/DRIVER Work Phone: [facility] 05-18-2024 09:18-0500 Body temperature 98.1 [degF] Kristin Harveyhholz LIFTER/DRIVER Work Phone: [facility] 05-18-2024 09:18-0500 Body weight 127.91 kg Kristin Ascencioholz LIFTER/DRIVER Work Phone: [facility] 05-18-2024 09:18-0500 Diastolic blood pressure 90 mm[Hg] Kristin Harveyhholz LIFTER/DRIVER Work Phone: [facility] 05-18-2024 09:18-0500 Heart rate 81 /min Kristin Harveyhholz LIFTER/DRIVER Work Phone: [facility] 05-18-2024 09:18-0500 Respiratory rate 19 /min Kristin Harveyhholz LIFTER/DRIVER Work Phone: [facility] 05-18-2024 09:18-0500 SaO2% (BldA) [Mass fraction] 95 % Kristinvirginia Gabrielaimee LIFTER/DRIVER Work Phone: [facility] 05-18-2024 09:18-0500 Systolic blood pressure 144 mm[Hg] Kristin Harveycaitiez LIFTER/DRIVER Work Phone: [facility] 04-27-2024 09:03-0500 Body height 165.1 cm [facility] [place] [facility] PA Work Phone: [facility] 04-27-2024 09:03-0500 Body mass index (BMI) [Ratio] 46.43 kg/m2 [facility] [place] [facility] Work Phone: [facility] 04-27-2024 09:03-0500 Body weight 126.55 kg [facility] [place] [facility] Work Phone: [facility] 03-05-2024 10:04-0400 Body height 165.1 cm Kristin Bonitaz LIFTER/DRIVER Work Phone: [facility] 03-05-2024 10:04-0400 Body mass index (BMI) [Ratio] 46.49 kg/m2 Kristin Basil LIFTER/DRIVER Work Phone: [facility] 03-05-2024 10:04-0400 Body temperature 97.59 [degF] Kristin Bonitaz LIFTER/DRIVER Work Phone: [facility] 03-05-2024 10:04-0400 Body weight 126.73 kg Kristin Basil LIFTER/DRIVER Work Phone: [facility] 03-05-2024 10:04-0400 Diastolic blood pressure 82 mm[Hg] Kristin Bonitaz LIFTER/DRIVER Work Phone: [facility] 03-05-2024 10:04-0400 Heart rate 82 /min Kristin Sonuholz LIFTER/DRIVER Work Phone: [facility] 03-05-2024 10:04-0400 Respiratory rate 18 /min Kristin Sonuholz LIFTER/DRIVER Work Phone: [facility] 03-05-2024 10:04-0400 SaO2% (BldA) [Mass fraction] 97 % Kristin Basil LIFTER/DRIVER Work Phone: [facility] 03-05-2024 10:04-0400 Systolic blood pressure 112 mm[Hg] Kristin Basil LIFTER/DRIVER Work Phone: [facility] 02-25-2024 08:32-0400 Body height 165.1 cm Eliazar Zbigniew DO Work Phone: [facility] 02-25-2024 08:32-0400 Body mass index (BMI) [Ratio] 48.09 kg/m2 Eliazar Brooks DO Work Phone: [facility] 02-25-2024 08:32-0400 Body weight 131.09 kg Eliazar Brooks DO Work Phone: [facility] 02-10-2024 17:11-0400 Heart rate 82 /min Eliaazr Brooks [facility] 02-10-2024 17:11-0400 SaO2% (BldA) [Mass fraction] 94 % Eliazar Brooks [facility] 02-10-2024 17:11-0400 Diastolic blood pressure 89 mm[Hg] Eliazar Brooks [facility] 02-10-2024 17:11-0400 Mean blood pressure 109 mm[Hg] Eliazar Brooks [facility] 02-10-2024 17:11-0400 Systolic blood pressure 148 mm[Hg] Eliazar Brooks [facility] 02-10-2024 17:11-0400 Respiratory rate 16 /min Eliazar Brooks [facility] 02-10-2024 17:11-0400 Body temperature 98.24 [degF] Eliazar Brooks [facility] 02-10-2024 16:06-0400 Heart rate 81 /min Eliazar Brooks [facility] 02-10-2024 16:06-0400 SaO2% (BldA) [Mass fraction] 99 % Eliazar Brooks [facility] 02-10-2024 16:06-0400 Diastolic blood pressure 81 mm[Hg] Eliazar Brooks [facility] 02-10-2024 16:06-0400 Mean blood pressure 98 mm[Hg] Eliazar Brooks [facility] 02-10-2024 16:06-0400 Systolic blood pressure 134 mm[Hg] Eliazar Brooks [facility] 02-10-2024 16:05-0400 Respiratory rate 16 /min Eliazar Brooks [facility] 02-10-2024 16:00-0400 Body temperature 97.52 [degF] Eliazar Brooks [facility] 02-10-2024 16:00-0400 Respiratory rate 22 /min Eliazar Brooks [facility] 02-10-2024 16:00-0400 SaO2% (BldA) [Mass fraction] 95 % Eliazar Brooks [facility] 02-10-2024 16:00-0400 Systolic blood pressure 139 mm[Hg] Eliazar Brooks [facility] 02-10-2024 15:50-0400 Mean blood pressure 106 mm[Hg] Eliazar Brooks [facility] 02-10-2024 15:50-0400 Respiratory rate 24 /min Eliazar Brooks [facility] 02-10-2024 15:45-0400 Respiratory rate 9 /min Eliazar Brooks [facility] 02-10-2024 15:37-0400 Blood Pressure Location Eliazar Brooks [facility] 02-10-2024 15:37-0400 Body temperature 97.7 [degF] Eliazar Brooks [facility] 02-10-2024 15:30-0400 Respiratory rate 18 /min Eliazar Brooks [facility] 02-10-2024 12:04-0400 Blood Pressure Location Eliazar Brooks [facility] 02-10-2024 12:04-0400 Mean blood pressure 100 mm[Hg] Eliazar Brooks [facility] 02-10-2024 12:04-0400 Heart rate 94 /min Eliazar Brooks [facility] 02-10-2024 12:03-0400 Body temperature 97.88 [degF] Eliazar Brooks [facility] 02-10-2024 12:03-0400 Blood Pressure Location Eliazar Brooks [facility] 02-03-2024 14:28-0400 Body height 165.1 cm Kristin Aichholz LIFTER/DRIVER Work Phone: [facility] 02-03-2024 14:28-0400 Body mass index (BMI) [Ratio] 48.09 kg/m2 Kristin Aichholz LIFTER/DRIVER Work Phone: [facility] 02-03-2024 14:28-0400 Body temperature 98.49 [degF] Kristin Aichholz LIFTER/DRIVER Work Phone: [facility] 02-03-2024 14:28-0400 Body weight 131.09 kg Kristin Aichholz LIFTER/DRIVER Work Phone: [facility] 02-03-2024 14:28-0400 Diastolic blood pressure 90 mm[Hg] Kristin Aichholz LIFTER/DRIVER Work Phone: [facility] 02-03-2024 14:28-0400 Heart rate 83 /min Kristin Aichholz LIFTER/DRIVER Work Phone: [facility] 02-03-2024 14:28-0400 Respiratory rate 18 /min Kristin Aichholz LIFTER/DRIVER Work Phone: [facility] 02-03-2024 14:28-0400 SaO2% (BldA) [Mass fraction] 93 % Kristin Gracia LIFTER/DRIVER Work Phone: [facility] 02-03-2024 14:28-0400 Systolic blood pressure 128 mm[Hg] Kristin Gracia LIFTER/DRIVER Work Phone: [facility] 01-30-2024 10:45-0400 Body height 165.1 cm Eliazar Brooks DO Work Phone: [facility] 01-30-2024 10:45-0400 Body mass index (BMI) [Ratio] 48.92 kg/m2 Eliazar Brooks DO Work Phone: [facility] 01-30-2024 10:45-0400 Body weight 133.36 kg Eliazar Brooks DO Work Phone: [facility] 07-10-2023 15:53-0500 Body height 167.6 cm Paris Paris DO Work Phone: [facility] 07-10-2023 15:53-0500 Body weight 134.26 kg Paris Paris DO Work Phone: [facility] 07-10-2023 15:53-0500 Heart rate 89 /min Paris Paris DO Work Phone: [facility] 07-10-2023 15:53-0500 SaO2% (BldA) [Mass fraction] 97 % Paris Paris DO Work Phone: [facility] 06-26-2023 11:34-0500 Body height 165.1 cm Shaikh Jonn BENITEZ Work Phone: [facility] 06-26-2023 11:34-0500 Body mass index (BMI) [Ratio] 48.09 kg/m2 Shaikh Jonn BENITEZ Work Phone: [facility] 06-26-2023 11:34-0500 Body temperature 98.6 [degF] Shaikh Jonn BENITEZ Work Phone: [facility] [employer] 06-26-2023 11:34-0500 Body weight 131.09 kg Shaikh Jonn BENITEZ Work Phone: [facility] 06-26-2023 11:34-0500 Diastolic blood pressure 80 mm[Hg] Shaikh Jonn BENITEZ Work Phone: [facility] 06-26-2023 11:34-0500 Heart rate 77 /min Shaikh Jonn BENITEZ Work Phone: [facility] 06-26-2023 11:34-0500 SaO2% (BldA) [Mass fraction] 96 % Shaikh Jonn BENITEZ Work Phone: [facility] 06-26-2023 11:34-0500 Systolic blood pressure 136 mm[Hg] Shaikh Jonn BENITEZ Work Phone: [facility] [employer] 04-18-2022 10:30-0500 Body height 173.99 cm Tyshawn Palencia Other [facility] Other 04-18-2022 10:30-0500 Body mass index (BMI) [Ratio] 46.68 kg/m2 Tyshawn Palencia Other [facility] Other 04-18-2022 10:30-0500 Body weight 141.34 kg Tyshawn Palencia Other [facility] Other 04-18-2022 10:30-0500 Diastolic blood pressure 89 mm[Hg] Tyshawn Palencia Other [facility] Other 04-18-2022 10:30-0500 Systolic blood pressure 129 mm[Hg] Tyshawn Palencia Other [facility] Other 03-22-2022 12:54-0400 Body height 172.7 cm Jessica Young PA-C Work Phone: [facility] 03-22-2022 12:54-0400 Body weight 131.54 kg Jessica Young PA-C Work Phone: [facility] 03-22-2022 12:54-0400 Diastolic blood pressure 76 mm[Hg] Jessica Young PA-C Work Phone: [facility] 03-22-2022 12:54-0400 Heart rate 108 /min Jessica Young PA-C Work Phone: [facility] 03-22-2022 12:54-0400 Systolic blood pressure 129 mm[Hg] Jessica Young PA-C Work Phone: [facility] 03-22-2022 09:30-0400 Body temperature 97 [degF] Infusion 10 Work Phone: [facility] 03-22-2022 09:30-0400 Diastolic blood pressure 83 mm[Hg] Infusion 10 Work Phone: [facility] 03-22-2022 09:30-0400 Heart rate 79 /min Infusion 10 Work Phone: [facility] 03-22-2022 09:30-0400 Systolic blood pressure 152 mm[Hg] Infusion 10 Work Phone: [facility] 12-13-2021 10:30-0400 Body height 173.99 cm Tyshawn Palencia Other [facility] Other 12-13-2021 10:30-0400 Body mass index (BMI) [Ratio] 45.55 kg/m2 Tyshawn Palencia Other [facility] Other 12-13-2021 10:30-0400 Body weight 137.89 kg Tyshawn Palencia Other [facility] Other 11-14-2021 08:42-0400 Body height 174 cm Jessica Young PA-C Work Phone: [facility] 11-14-2021 08:42-0400 Body weight 132 kg Jessicadonna Clarke PA-C Work Phone: [facility] 11-14-2021 08:42-0400 Diastolic blood pressure 68 mm[Hg] Jessica Young PA-C Work Phone: [facility] 11-14-2021 08:42-0400 Heart rate 88 /min Jessica Vince PA-C Work Phone: [facility] 11-14-2021 08:42-0400 Systolic blood pressure 112 mm[Hg] Jessica Clarke PA-C Work Phone: [facility] 09-18-2021 12:00-0400 Body temperature 97.9 [degF] Infusion 2 Work Phone: [facility] 09-18-2021 12:00-0400 Diastolic blood pressure 89 mm[Hg] Infusion 2 Work Phone: [facility] 09-18-2021 12:00-0400 Heart rate 93 /min Infusion 2 Work Phone: [facility] 09-18-2021 12:00-0400 Respiratory rate 16 /min Infusion 2 Work Phone: [facility] 09-18-2021 12:00-0400 Systolic blood pressure 131 mm[Hg] Infusion 2 Work Phone: [facility] 09-18-2021 08:00-0400 Body height 174 cm Infusion 2 Work Phone: [facility] 09-18-2021 08:00-0400 Body weight 117.94 kg Infusion 2 Work Phone: [facility] 09-05-2021 10:45-0400 Diastolic blood pressure 68 mm[Hg] Services [facility] Work Phone: [facility] 09-05-2021 10:45-0400 Heart rate 91 /min Services [facility] Work Phone: [facility] 09-05-2021 10:45-0400 Respiratory rate 18 /min Services [employer] Work Phone: [facility] 09-05-2021 10:45-0400 SaO2% (BldA) [Mass fraction] 99 % Services [employer] Work Phone: [facility] 09-05-2021 10:45-0400 Systolic blood pressure 122 mm[Hg] Services [employer] Work Phone: [facility] 09-05-2021 08:26-0400 Body height 173.99 cm Services [employer] Work Phone: [facility] 09-05-2021 08:26-0400 Body mass index (BMI) [Ratio] 43.4 kg/m2 Services [facility] [employer] Work Phone: [facility] 09-05-2021 08:26-0400 Body temperature 98.2 [degF] Services [facility] [employer] Work Phone: [facility] 09-05-2021 08:26-0400 Body weight 131.54 kg Services [facility] [employer] Work Phone: [facility] 08-14-2021 11:30-0400 Body height 173.99 cm Tyshawn Palencia Other [employer] [facility] Other 08-14-2021 11:30-0400 Body mass index (BMI) [Ratio] 43.45 kg/m2 Tyshawn Palencia Other [facility] Other 08-14-2021 11:30-0400 Body weight 131.54 kg Tyshawn Palencia Other [employer] Other Encounters Encounter Date Encounter Type Care Provider Facility Start: 08-18-2024 End: 08-18-2024 Kontron flowsheet Kristin Gracia LIFTER/DRIVER Work Phone: [facility] Start: 08-18-2024 End: 08-18-2024 Kontron flowsheet Kristin Gracia LIFTER/DRIVER Work Phone: [facility] Start: 08-18-2024 End: 08-18-2024 Office outpatient visit 25 minutes Kristin Gabrielaimee LIFTER/DRIVER Work Phone: [facility] Comment on above: Generalized anxiety disorder with panic attacks (CMS/HCC) (Primary Dx); Morbid (severe) obesity due to excess calories (CMS/HCC); Major depressive disorder, recurrent, moderate (CMS/HCC); Primary insomnia Start: 08-18-2024 End: 08-18-2024 ambulatory KRISTIN AICHHOLZ Not Available Start: 08-03-2024 End: 08-03-2024 Telephone encounter Elva Rodriguez LIFTER/DRIVER Work Phone: [facility] Start: 07-07-2024 End: 07-07-2024 Bamboo flowsheet Kristin Gabrielaimee LIFTER/DRIVER Work Phone: [facility] Start: 07-07-2024 End: 07-07-2024 Bamboo flowsheet Kristin Ascenciovicky LIFTER/DRIVER Work Phone: [facility] Start: 07-07-2024 End: 07-07-2024 ambulatory KRISTIN AICHHOLZ Not Available Start: 06-30-2024 End: 06-30-2024 Clinisync Result Encounter Kristin Gabrielaimee LIFTER/DRIVER Work Phone: [facility] Unsolicited Start: 06-30-2024 End: 06-30-2024 Clinisync Result Encounter Kristin Gabrielaimee LIFTER/DRIVER Work Phone: [facility] Unsolicited Start: 06-17-2024 End: 06-17-2024 Bamboo flowsheet Sherrie Augustink LIFTER/DRIVER Work Phone: [facility] Start: 06-17-2024 End: 06-17-2024 Bamboo flowsheet Sherrie Boone LIFTER/DRIVER Work Phone: [facility] Start: 06-17-2024 End: 06-17-2024 Office outpatient visit 10 minutes Sherrie Boone LIFTER/DRIVER Work Phone: [facility] Comment on above: Acute non-recurrent frontal sinusitis (Primary Dx) Start: 06-17-2024 End: 06-17-2024 ambulatory SHERRIE BOONE Not Available Start: 05-18-2024 End: 05-18-2024 Bamboo flowsheet Kristin Basil LIFTER/DRIVER Work Phone: [facility] Start: 05-18-2024 End: 05-18-2024 Bamboo flowsheet Kristin Harveyberenicevicky LIFTER/DRIVER Work Phone: [facility] Start: 05-18-2024 End: 05-18-2024 Patient encounter procedure Kristin Basil LIFTER/DRIVER Work Phone: [facility] Comment on above: [...] Orders Only Jessica Clarke PA-C Work Phone: [facility] Start: 05-04-2024 End: 05-05-2024 Telephone encounter Aria Agrawal PT [facility] Comment on above: re: PT Eval tomorrow ; Call Back Start: 04-27-2024 End: 04-27-2024 Telephone encounter Kristin Gracia LIFTER/DRIVER Work Phone: [facility] Start: 04-27-2024 End: 04-27-2024 Patient encounter procedure Yahaira IBANEZ Work Phone: [facility] Comment on above: Adhesive capsulitis of left shoulder (Primary Dx); S/P arthroscopy of left shoulder Start: 04-27-2024 End: 04-27-2024 ambulatory YAHAIRA VAZQUEZ Not Available Start: 04-26-2024 End: 04-27-2024 Refill Kristin Gracia LIFTER/DRIVER Work Phone: [facility] Comment on above: Anxiety and depressi on (CMS/HCC) Start: 04-15-2024 End: 04-15-2024 Refill Kristin Gracia LIFTER/DRIVER Work Phone: [facility] Comment on above: Acute cough (Primary Dx) Start: 04-14-2024 End: 04-14-2024 Refill Kristin Gracia LIFTER/DRIVER Work Phone: [facility] Comment on [...] fu.) Start: 03-25-2024 End: 03-25-2024 Bamboo flowsheet Inderjitdaniel Pelletier LAW RESEARCHER [facility] Start: 03-25-2024 End: 03-25-2024 Bamboo flowsheet Inderjitdaniel Pelletier LAW RESEARCHER [facility] Start: 03-25-2024 End: 03-25-2024 ambulatory Inderjit Pelletier LAW RESEARCHER [facility] Comment on above: Left shoulder pain, unspecified chronicity (Primary Dx); S/P arthroscopy of left shoulder Start: 03-13-2024 End: 03-13-2024 Bamboo flowsheet Inderjit Pelletier LAW RESEARCHER [facility] Start: 03-13-2024 End: 03-13-2024 Bamboo flowsheet Inderjit Pelletier LAW RESEARCHER [facility] Start: 03-13-2024 End: 03-13-2024 ambulatory Inderjit Tyshawn LAW RESEARCHER [facility] Comment on above: Left [...] Start: 03-06-2024 End: 03-06-2024 ambulatory Inderjit Pelletier LAW RESEARCHER [facility] Comment on above: S/P arthroscopy of l eft shoulder (Primary Dx) Start: 03-05-2024 End: 03-05-2024 Bamboo flowsheet Kristin Gracia LIFTER/DRIVER Work Phone: [facility] Start: 03-05-2024 End: 03-05-2024 Bamboo flowsheet Kristin Gracia LIFTER/DRIVER Work Phone: [facility] Start: 03-05-2024 End: 03-05-2024 Office outpatient visit 15 minutes Kristin Gracia LIFTER/DRIVER Work Phone: [facility] Comment on above: Anxiety and depressi on (CMS/HCC) (Primary Dx); Needs flu shot; Candidiasis of skin Start: 03-05-2024 End: 03-05-2024 ambulatory KRISTIN GRACIA Not Available Start: 03-03-2024 End: 03-03-2024 Bamboo flowsheet Inderjit Pelletier LAW RESEARCHER [facility] Start: 03-03-2024 End: 03-03-2024 Bamboo flowsheet Inderjit Pelletier LAW RESEARCHER [facility] Start: 03-03-2024 End: 03-03-2024 ambulatory Inderjit Pelletier LAW RESEARCHER [facility] Comment on above: S/P [...] Available Start: 02-14-2024 End: 02-14-2024 Telephone encounter Eliazar Brooks DO Work Phone: [facility] Start: 02-13-2024 End: 02-13-2024 Telephone encounter Eliazar Brooks DO Work Phone: [facility] Start: 02-10-2024 End: 02-10-2024 Admission to same day surgery center Eliazar Brooks [facility] Start: 02-10-2024 End: 02-10-2024 ambulatory Eliazar Brooks Facility:[facility] Start: 02-05-2024 End: 02-05-2024 ambulatory FRANCES AGUILERA Facility:[facility] Start: 02-03-2024 End: 02-03-2024 Office outpatient visit 15 minutes Kristin Gracia NP Work Phone: [facility] Comment on above: Diverticulitis (Prim donna Dx); Class 3 severe obesity without serious comorbidity with body mass index (BMI) of 45.0 to 49.9 in adult, unspecified obesity type ([facility]/HCC) Start: 02-03-2024 End: 02-03-2024 Bamboo flowsheet Kristin Aichholz LIFTER/DRIVER Work Phone: [facility] Start: 02-03-2024 End: 02-03-2024 Bamboo flowsheet Kristin Basil LIFTER/DRIVER Work Phone: [facility] Start: 02-03-2024 End: 02-03-2024 ambulatory KRISTIN BASIL Not Available Start: 01-30-2024 End: 01-30-2024 Bamboo [...] Healthcare Start: 01-30-2024 End: 01-30-2024 ambulatory ELIAZAR BROKOS Not Available Start: 01-29-2024 End: 01-29-2024 Orders Only Kristin Gracia LIFTER/DRIVER Work Phone: [facility] Comment on above: Multiple sclerosis ( CMS/HCC) (Primary Dx) Start: 01-23-2024 End: 01-23-2024 Clinisync Result Encounter Kristin Gracia LIFTER/DRIVER Work Phone: [facility] External [facility] Unsolicited Start: 01-23-2024 End: 01-23-2024 Clinisync Result Encounter Kristin Gracia LIFTER/DRIVER Work Phone: [facility] External Department Unsolicited Start: 01-23-2024 End: 01-23-2024 ambulatory SHERRIE BOONE Not Available Start: 01-14-2024 End: 01-17-2024 Telephone encounter Jessica Clarke PA-C Work Phone: [facility] Comment on above: Orders Start: 01-06-2024 End: 01-06-2024 ambulatory KRISTIN AICHHOLZ Not Available Start: 12-24-2023 End: 01-10-2024 Pre-admission assessment Eliazar Brooks [facility] Start: 12-24-2023 End: 12-24-2023 ambulatory ELIAZAR BROOKS Not Available Start: 12-19-2023 Telephone encounter [facility] Work Phone: Infusion Start: 12-02-2023 End: 12-02-2023 ambulatory KRISTIN AICHHOLZ Not Available Start: 11-27-2023 Orders Only Jessica Almodovar Work Phone: [facility] Comment on above: Multiple sclerosis ( HCC) (Primary Dx); Vitamin D deficiency Start: 11-26-2023 Orders Only Sarthak Escobar MD, PhD Work Phone: [facility] Start: 11-13-2023 End: 11-13-2023 ambulatory YAHAIRA D HILLS Not Available Start: 11-05-2023 End: 11-05-2023 ambulatory YAHAIRA D HILLS Not Available Start: 10-10-2023 End: 10-10-2023 ambulatory KRISTIN AICHHOLZ Not Available Start: 10-07-2023 End: 10-07-2023 ambulatory YAHAIRA D HILLS Not Available Start: 09-06-2023 End: 09-06-2023 ambulatory Katerin Mccoy PA-C Work Phone: [facility] Comment on above: Left arm weakness (P rimary Dx) Start: 09-06-2023 End: 09-06-2023 Telemedicine consultation with patient Katerin Christina IBANEZ-Leah Work Phone: [facility] Start: 08-22-2023 ambulatory Jessica Almodovar Work Phone: [facility] Comment on above: Spine Start: 08-22-2023 Chart abstracting None (Historical) Neurology Start: 08-21-2023 Telephone encounter Jessica mireles PA-C Work Phone: [facility] Comment on above: Patient Question Start: 08-08-2023 ambulatory ELIAZAR Aiken ty:[facility] Start: 07-15-2023 Telephone encounter Jessica mireles PA-C Work Phone: [facility] Comment on above: Orders (Order for MR Josh needed for Brain and Cervical) Start: 07-10-2023 End: 07-10-2023 ambulatory JESSICA CLARKE Facility:[facility] Start: 07-10-2023 End: 07-10-2023 Patient encounter procedure Paris E Paris DO Work Phone: Pain Management Comment on above: Cervical disc disord er with radiculopathy (Primary Dx); Cervical stenosis of spine; Chronic neck pain Start: 06-26-2023 ambulatory Paris E Girgi s DO Work Phone: Pain Management Comment on above: Pain Questionnaire Start: 06-26-2023 Lisseth Lunsford MD Work Phone: [facility] Start: 06-26-2023 Lisseth Lunsford MD Work Phone: [facility] Start: 06-26-2023 E-mail encounter dagoberto barney caregiver Paris E Paris DO Work Phone: [facility] Start: 06-26-2023 End: 06-26-2023 Office outpatient visit 25 minutes Shaikh Jonn BENITEZ Work Phone: [facility] Comment on above: Multiple sclerosis ( CMS/HCC) (Primary Dx); Primary hypertension (CMS/HCC); Anxiety and depression (CMS/HCC); COPD with exacerbation (CMS/HCC); Non-recurrent acute suppurative otitis media of left ear without spontaneous rupture of tympanic membrane Start: 05-22-2023 End: 05-22-2023 ambulatory SARTHAK ESCOBAR Facility:[facility] Start: 05-02-2023 End: 05-02-2023 ambulatory Jessica Clarke PA-C Work Phone: [facility] Comment on above: Multiple sclerosis ( HCC) (Primary Dx) Start: 05-02-2023 End: 05-02-2023 Telemedicine consultation with patient Jessica Clarke HENRY Work Phone: [facility] Start: 04-22-2023 ambulatory Jessica Clarke P A-C Work Phone: [facility] Comment on above: Skull Start: 04-19-2023 ambulatory Jessica Clarke P A-C Work Phone: [facility] Comment on above: Skull Start: 10-17-2022 ambulatory Valdez Sousa Work Phone: Internal Medicine [facility] Start: 10-01-2022 End: 10-01-2022 ambulatory PERSONAL SERVICE REPRESENTATIVE KRISTIN GRACIA Facility: Start: 10-01-2022 ambulatory RUBINA BONILLAA BASIL Facil ity:[facility] Start: 09-21-2022 End: 09-21-2022 ambulatory YAHAIRA MCKEON . Facility:[facility] Start: 08-30-2022 Orders Only Jessica Clarke P A-C Work Phone: [facility] Comment on above: Multiple sclerosis, relapsing-remitting (HCC) (Primary Dx) Start: 06-05-2022 End: 06-06-[address] DOCTOR BULL Facility:[facility] Start: 04-18-2022 End: 04-18-2022 ambulatory Tyshawn Palencia Other [employer] Other Start: 04-18-2022 Office outpatient vi sit 15 minutes Tyshawn Palencia [facility] Gastroenterology Start: 03-30-2022 Telephone encounter Valdez aleman MD Work Phone: [address] [place] [address] Comment on above: Patient Update Start: 03-22-2022 End: 03-22-2022 Patient encounter procedure Jessica Clarke HENRY Work Phone: [facility] Comment on above: Multiple sclerosis, relapsing-remitting (HCC) (Primary Dx) Start: 03-22-2022 End: 11-03-2022 ambulatory Infusion Kriss Chair 10 Work Phone: Multiple Sclerosis Comment on above: Multiple sclerosis ( HCC) (Primary Dx) Start: 03-16-2022 Orders Only Sarthak Escobar MD, PhD Work Phone: [facility] Start: 03-07-2022 End: 03-07-2022 [facility] Start: 03-06-2022 ambulatory Valdez Sousa Work Phone: [facility] Start: 02-12-2022 Telephone encounter Jessica mireles PA-C Work Phone: Neurology Comment on above: Appointment (Called pt LVM to see about setting up pt and psycology.) Start: 01-16-2022 End: 01-16-2022 ambulatory Jojo Pickard OTR/L Work Phone: [facility] Occupational Therapy Comment on above: Multiple sclerosis, relapsing-remitting (HCC) Start: 12-13-2021 End: 12-13-2021 ambulatory Tyshawn Palencia Other [employer] Other Start: 12-13-2021 Office outpatient vi sit 15 minutes Tyshawn Palencia [facility] Gastroenterology Start: 11-15-2021 ambulatory Valdez Sousa Work Phone: Internal Medicine [facility] Start: 11-14-2021 End: 11-14-2021 Patient encounter procedure Jessica Clarke PA-C Work Phone: [facility] Comment on above: Multiple sclerosis, relapsing-remitting (HCC) (Primary Dx) Start: 11-14-2021 End: 11-14-2021 Subsequent hospital visit by physician Cara Manning (I-Stat/3t) Work Phone: Radiology Comment on above: Multiple sclerosis, relapsing-remitting (HCC) [G35] Start: 09-18-2021 End: 09-18-2021 ambulatory Infusion Mcintosh Chair 2 Work Phone: Multiple Sclerosis Comment on above: Multiple sclerosis ( HCC) (Primary Dx); Multiple sclerosis, relapsing-remitting (HCC) Start: 09-15-2021 End: 09-15-2021 ambulatory Jessica Clarke HENRY Work Phone: [facility] Comment on above: Multiple sclerosis, relapsing-remitting (HCC) Start: 09-15-2021 End: 09-15-2021 Telemedicine consultation with patient Jessica ROMOLeah Work Phone: [facility] Start: 09-14-2021 End: 09-14-2021 ambulatory Tyshawn Moe Other [employer] Other Start: 09-14-2021 Telephone encounter Tyshawn Carlisle [facility] Start: 09-05-2021 End: 09-05-2021 Admission to same day surgery center Services [employer] Work Phone: [facility] Start: 09-01-2021 End: 09-01-2021 Patient encounter procedure [employer] Work Phone: [facility] Start: 08-14-2021 End: 08-14-2021 ambulatory Tyshawn Palencia Other [employer] Other Start: 08-14-2021 Office outpatient ne w 45 minutes Tyshawn Palencia [facility] Start: 07-28-2020 End: 07-28-2020 Patient encounter procedure Jazmin Shaikh Work Phone: [facility] Work Phone: Start: 12-20-2016 End: 12-21-2016 Ambulatory [facility] Facility:[facility] Start: 11-27-2012 Patient encounter status Jessica Clarke HENRY Work Phone: [facility] Procedures Date Procedure Procedure Detail Performing Clinician Start: 06-30-2024 MM TOMOSYNTHESIS SCR EENING BI Kristin Gracia LIFTER/DRIVER Work Phone: Start: 06-30-2024 Mammography Kristin rivera LIFTER/DRIVER Work Phone: Start: 04-27-2024 Arthrocentesis aspir &/inj major jt/bursa w/us Yahaira IBANEZ Work Phone: Start: 02-25-2024 Radex shoulder compl ete minimum 2 views Eliazar Brooks DO Work Phone: Start: 02-10-2024 Arthroscopy of shoulder Eliazar Brooks Start: 01-23-2024 TBH UA (CLEAN/CATCH) MICROSCOPIC IF INDICATE Kristin Basil LIFTER/DRIVER Work Phone: Start: 03-07-2022 Microscopic observat ion [Identifier] in Cervix by Cyto stain Shaikh Jonn BENITEZ Work Phone: Start: 11-14-2021 BRAIN & CERVICAL SPI NE MRI DISCRETE DATA [facility] Provider Start: 11-14-2021 Mri brain brain stem w/o w/contrast material Jessica Clarke PA-C Work Phone: Start: 09-18-2021 Blood count complete auto&auto difrntl wbc Jessica IBANEZ-C Work Phone: Start: 09-18-2021 Lipid panel Jessica mireles PA-C Work Phone: Start: 09-18-2021 Lipid 1996 panel - S sofía or Plasma Jessica IBANEZ-C Work Phone: Start: 09-15-2021 Adult depression scr eening assessment Jessica IBANEZ-C Work Phone: Start: 09-05-2021 Diagnostic endoscopi c examination on colon Services [facility] Work Phone: Start: 09-01-2021 SARS Antigen (LFIA) Ser vices [facility] Work Phone: Start: 07-28-2020 Imm. administration COVID19 [employer] Jazmin Shaikh Work Phone: Start: 07-28-2020 SARS-CoV-2 vaccine, 0.5ml [employer] Jazmin Shaikh Work Phone: Start: 09-17-2012 Mammography Shaikh Ilan gimenez MD Work Phone: Ectopic (disorder) Eliazar Brooks Entire carpal canal (body structure) Eliazar Brooks Plan of Treatment Date Care Activity Detail Author Start: 09-22-2027 Screening for malign ant neoplasm of colon [facility] Start: 10-02-2026 Urine microalbumin profile [facility] Start: 09-18-2026 Lipid 1996 panel - S sofía or Plasma Lipid Screening [facility] Start: 09-18-2026 Lipid panel Lipid Screening [facility] Start: 09-18-2026 LIPID SCREEN LIPID SCREEN [facility] Start: 05-22-2026 Diabetes Screening Diabetes Screenin g [facility] Start: 11-08-2025 LIPID SCREEN LIPID SCREEN [facility] Start: 06-30-2025 Screening for malign ant neoplasm of breast Mammogram [facility] Start: 05-18-2025 Medicare Annual Well ness (AWV) Medicare Annual Wellness (AWV) [facility] Start: 03-07-2025 Screening for malign ant neoplasm of cervix [facility] Start: 09-30-2024 End: 09-30-2024 Patient encounter procedure 09/30/2024 8:40 AM EDT Office Visit [facility] [address] [place] [address] Kristin Garcia NP [address] [place] [address] [facility] Start: 09-18-2024 DIABETES SCREEN DIABETES SCREEN [facility] Start: 09-18-2024 Diabetes Screening Diabetes Screenin g [facility] Start: 09-07-2024 End: 09-07-2024 Patient encounter procedure 09/07/2024 8:00 AM EDT Office Visit [facility] [address] [place] [address] Nasra Horta, LIFTER/DRIVER [address] [place] [address] [facility] Start: 08-18-2024 End: 08-18-2024 Patient encounter procedure [facility] Comment on above: Morbid (severe) obes ity due to excess calories (CMS/HCC) (Primary Dx); Generalized anxiety disorder with panic attacks (CMS/HCC); Major depressive disorder, recurrent, moderate (CMS/HCC) Start: 07-13-2024 End: 07-13-2024 Patient encounter procedure 07/13/2024 9:40 AM EST Office Visit [facility] [address] [facility] [address] [place] [address] Nasra Horta, LIFTER/DRIVER [address], [facility] [address] [place] [id number] [facility] Start: 07-07-2024 End: 07-07-2024 Patient encounter procedure 07/07/2024 10:00 AM EST Office Visit [facility] [address] [place] [address] Kristin Gracia NP [address] [place] [address] Generalized anxiety disorder with panic attacks (CMS/HCC) (Primary Dx); Multiple sclerosis (CMS/HCC); Major depressive disorder, recurrent, moderate (CMS/HCC); Morbid (severe) obesity due to excess calories (CMS/HCC); Body mass index (BMI) 45.0-49.9, adult (CMS/HCC) [facility] Comment on above: Generalized anxiety disorder with panic attacks (CMS/HCC) (Primary Dx); Multiple sclerosis (CMS/HCC); Major depressive disorder, recurrent, moderate (CMS/HCC); Morbid (severe) obesity due to excess calories (CMS/HCC); Body mass index (BMI) 45.0-49.9, adult (CMS/HCC) Start: 07-01-2024 End: 07-01-2024 Patient encounter procedure 07/01/2024 10:00 AM EST Office Visit [facility] [address] [place] [address] Kristin Gracia, LIFTER/DRIVER [address] [place] [address] [facility] Start: 06-25-2024 End: 06-25-2024 Patient encounter procedure 06/25/2024 8:40 AM EST Office Visit [facility] [address] [place] [address] Kristin Gracia, LIFTER/DRIVER [address] [place] [address] [facility] Start: 06-17-2024 End: 06-17-2024 Patient encounter procedure 06/17/2024 9:30 AM EST Office Visit [facility] [address] [place] [address] Sherrie Boone NP [address] [place] [address] Arrived [facility] Comment on above: Arrived Start: 06-08-2024 End: 06-08-2024 Patient encounter procedure 06/08/2024 9:45 AM EST Office Visit [facility] [address] [place] [phone] Yahaira Vazquez PA [address] [place] [address] [facility] Start: 05-18-2024 End: 07-17-2025 MG Breast - bilateral Screening Bilateral screening mammogram Imaging Routine Encounter for screening mammogram for malignant neoplasm of breast Expected: 05/18/2024 (Approximate), Expires: 07/17/2025 [facility] Work Phone: Comment on above: Expected: 05/18/2024 (Approximate), Expires: 07/17/2025 Start: 05-18-2024 End: 05-18-2024 Patient encounter procedure [facility] Comment on above: LORENZO (obstructive sle ep [...] [facility] [address] [facility] [address] [place] [address] Nasra Horta, LIFTER/DRIVER [address], [address] [address] [facility] Start: 05-05-2024 End: 05-05-2024 Patient encounter procedure 05/05/2024 9:40 AM EST Office Visit [facility] [address] [place] [address] Kristin Gracia NP [address] [place] [address] [facility] Start: 04-30-2024 Medicare Annual Well ness (AWV) Medicare Annual Wellness (AWV) [facility] Start: 04-29-2024 End: 04-29-2024 Patient encounter procedure 04/29/2024 9:40 AM EST Office Visit [facility] [address] [facility] [address] [place] [address] Nasra Horta, LIFTER/DRIVER [address], [address] [phone] [facility] Start: 04-27-2024 End: 04-27-2024 Patient encounter procedure [facility] Start: 04-10-2024 End: 04-10-2024 ambulatory 04/10/2024 8:30 AM EST Treatment [facility] [address] [place] [address] Inderjit Pelletier, LAW RESEARCHER [facility] Start: 04-07-2024 End: 04-07-2024 ambulatory 04/07/2024 9:00 AM EST Treatment [facility] [address] [place] [address] Aria Agrawal, PT [facility] Start: 04-02-2024 End: 04-02-2024 ambulatory 04/02/2024 8:30 AM EST Treatment [facility] [address] [facility] [address] [place] [address] Aria Agrawal, PT [facility] Start: 03-17-2024 End: 03-17-2024 ambulatory 03/17/2024 9:00 AM EDT Treatment [facility] [address] [facility] [address] [place] [address] Aria Agrawal, PT [facility] Start: 03-13-2024 End: 03-13-2024 ambulatory [facility] Comment on above: Arrived Start: 03-10-2024 End: 03-10-2024 ambulatory 03/10/2024 9:30 AM EDT Treatment [facility] [address] [facility] [address] [place] [address] Keli Major, LAW RESEARCHER [facility] Start: 03-06-2024 End: 03-06-2024 ambulatory 03/06/2024 8:30 AM EDT Treatment [facility] [address] [facility] [address] [place] [address] Inderjit Pelletier, LAW RESEARCHER [facility] Start: 03-05-2024 End: 03-05-2024 [...] [facility] [address] [place] [address] Eliazar Brooks, DO [address] [place] [address] [facility] Start: 02-25-2024 End: 02-25-2024 Patient encounter procedure 02/25/2024 8:15 AM EDT Office Visit [facility] [address] [place] [phone] Eliazar Brooks, DO [address] [place] [address] [facility] Start: 02-10-2024 End: 02-10-2024 [...] NEUR [address] [place] [address] [facility] Start: 01-19-2024 Covid-19 Vaccine () Covid-19 Vaccine () [facility] Start: 01-19-2024 Influenza vaccination Influenza Vacc ine (#1) [facility] Start: 12-10-2023 End: 12-10-2023 Patient encounter procedure 12/10/2023 10:30 AM EDT Office Visit [facility] [address] [address] Jessica Clarke PA-C [address] [place] [address] follow up [facility] Comment on above: follow up Start: 11-27-2023 End: 02-26-2024 25-hydroxyvitamin D3 [Mass/volume] in Serum or Plasma VITAMIN D 25 HYDROXY Lab Routine Vitamin D deficiency Expected: 11/27/2023, Expires: 02/26/2024 [facility] Comment on above: Expected: 11/27/2023 , Expires: 02/26/2024 Start: 11-27-2023 End: 02-26-2024 CBC W Auto Differential panel - Blood COMPLETE BLOOD COUNT AND DIFFERENTIAL Lab Routine Multiple sclerosis (HCC) Expected: 11/27/2023, Expires: 02/26/2024 [facility] Work Phone: Comment on above: Expected: 11/27/2023 , Expires: 02/26/2024 Start: 11-27-2023 End: 02-26-2024 Comprehensive metabolic 2000 panel - Serum or Plasma COMPREHENSIVE METABOLIC PANEL Lab Routine Multiple sclerosis (HCC) Expected: 11/27/2023, Expires: 02/26/2024 [facility] Comment on above: Expected: 11/27/2023 , Expires: 02/26/2024 Start: 11-27-2023 End: 02-26-2024 IgG [Mass/volume] in Serum or Plasma IMMUNOGLOBULIN G Lab Routine Multiple sclerosis (HCC) Expected: 11/27/2023, Expires: 02/26/2024 [facility] Comment on above: Expected: 11/27/2023 , Expires: 02/26/2024 Start: 11-27-2023 End: 02-26-2024 IgM [Mass/volume] in Serum or Plasma IMMUNOGLOBULIN M Lab Routine Multiple sclerosis ([facility]) Expected: 11/27/2023, Expires: 02/26/2024 [facility] Comment on above: Expected: 11/27/2023 , Expires: 02/26/2024 Start: 11-27-2023 End: 11-27-2023 Patient encounter procedure 11/27/2023 12:00 PM EDT Appointment Radiology [address] [place] [address] Cervical Spine MRI Radiology Comment on above: Cervical Spine MRI Start: 11-09-2023 DIABETES SCREEN DIABETES SCREEN [facility] Start: 09-05-2023 End: 09-05-2023 Patient encounter procedure 09/05/2023 8:40 AM EDT Office Visit [facility] [address] [place] [address] Kristin Gracia NP [address] [place] [address] [facility] Start: 07-25-2023 End: 06-26-2024 Pulmonary function testing Pulmonary function testing Imaging Routine COPD with exacerbation ([facility]) Expected: 07/25/2023, Expires: 06/26/2024 [facility] Work Phone: Comment on above: Expected: 07/25/2023 , Expires: 06/26/2024 Start: 06-26-2023 End: 06-26-2024 XR Chest 2 Views XR chest 2 views Imaging Routine COPD with exacerbation ([facility]) Expected: 06/26/2023, Expires: 06/26/2024 [facility] Comment on above: Expected: 06/26/2023 , Expires: 06/26/2024 Start: 06-26-2023 End: 06-26-2023 Patient encounter procedure 06/26/2023 11:30 AM EST Office Visit [facility] [address] [place] [address] Shaikh Lunsford MD [address] [place] [address] Arrived [facility] Comment on above: Arrived Start: 05-20-2023 Behavioral Health Screening Behavioral Health Screening [facility] Start: 05-20-2023 Depression Assessment Depression Ass essment [facility] Start: 01-18-2023 Covid-19 Vaccine () Covid-19 Vaccine () [facility] Start: 01-18-2023 Influenza vaccination C [facility] Start: 09-15-2022 Adult depression screening assessment DEPRESSION SCREENING [facility] Start: 08-30-2022 End: 10-30-2022 CBC W Auto Differential panel - Blood CBC + DIFF Lab Routine Multiple sclerosis, relapsing-remitting (HCC) Expected: 08/30/2022, Expires: 10/30/2022 [facility] Work Phone: Comment on above: Expected: 08/30/2022 , Expires: 10/30/2022 Start: 08-30-2022 End: 10-30-2022 Comprehensive metabolic 2000 panel - Serum or Plasma COMP METABOLIC PANEL Lab Routine Multiple sclerosis, relapsing-remitting (HCC) Expected: 08/30/2022, Expires: 10/30/2022 [facility] Work Phone: Comment on above: Expected: 08/30/2022 , Expires: 10/30/2022 Start: 08-30-2022 End: 10-30-2022 IgG [Mass/volume] in Serum or Plasma IGG Lab Routine Multiple sclerosis, relapsing-remitting (HCC) Expected: 08/30/2022, Expires: 10/30/2022 [facility] Work Phone: Comment on above: Expected: 08/30/2022 , Expires: 10/30/2022 Start: 08-30-2022 End: 10-30-2022 IgM [Mass/volume] in Serum or Plasma IGM Lab Routine Multiple sclerosis, relapsing-remitting (HCC) Expected: 08/30/2022, Expires: 10/30/2022 [facility] Work Phone: Comment on above: Expected: 08/30/2022 , Expires: 10/30/2022 Start: 05-20-2022 DEPRESSION ASSESSMENT DEPRESSION ASS ESSMENT [facility] Start: 03-22-2022 End: 05-22-2022 CBC W Auto Differential panel - Blood CBC + DIFF Lab Routine Multiple sclerosis, relapsing-remitting (HCC) Expected: 03/22/2022, Expires: 05/22/2022 [facility] Work Phone: Comment on above: Expected: 03/22/2022 , Expires: 05/22/2022 Start: 03-22-2022 End: 05-22-2022 CD19 ABSOLUTE COUNT CD19 ABSOLUTE COUNT Lab Routine Multiple sclerosis (HCC) Expected: 03/22/2022, Expires: 05/22/2022 [facility] Work Phone: Comment on above: Expected: 03/22/2022 , Expires: 05/22/2022 Start: 03-22-2022 End: 05-22-2022 Comprehensive metabolic 2000 panel - Serum or Plasma COMP METABOLIC PANEL Lab Routine Multiple sclerosis, relapsing-remitting (HCC) Expected: 03/22/2022, Expires: 05/22/2022 [facility] Work Phone: Comment on above: Expected: 03/22/2022 , Expires: 05/22/2022 Start: 03-22-2022 End: 05-22-2022 IgG [Mass/volume] in Serum or Plasma IGG Lab Routine Multiple sclerosis, relapsing-remitting (HCC) Expected: 03/22/2022, Expires: 05/22/2022 [facility] Work Phone: Comment on above: Expected: 03/22/2022 , Expires: 05/22/2022 Start: 03-22-2022 End: 05-22-2022 IgM [Mass/volume] in Serum or Plasma IGM Lab Routine Multiple sclerosis, relapsing-remitting (HCC) Expected: 03/22/2022, Expires: 05/22/2022 [facility] Work Phone: Comment on above: Expected: 03/22/2022 , Expires: 05/22/2022 Start: 01-18-2022 Influenza vaccination C [facility] Start: 11-14-2021 End: 01-14-2022 JCV ANTIBODY & INDEX WITH REFLEX [facility] Work Phone: Comment on above: Expected: 11/14/2021 , Expires: 01/14/2022 Start: 09-18-2021 End: 11-18-2021 CD19 ABSOLUTE COUNT [facility] Work Phone: Comment on above: Expected: 09/18/2021 , Expires: 11/18/2021 Start: 09-16-2021 COVID-19 VACCINE (3 - Booster for Yeni series) COVID-19 VACCINE (3 - Booster for Yeni series) [facility] Start: 09-15-2021 End: 11-15-2021 CBC W Auto Differential panel - Blood CBC + DIFF Lab Routine Multiple sclerosis, relapsing-remitting (HCC) Expected: 09/15/2021, Expires: 11/15/2021 [facility] Work Phone: Comment on above: Expected: 09/15/2021 , Expires: 11/15/2021 Start: 09-15-2021 End: 11-15-2021 Comprehensive metabolic 2000 panel - Serum or Plasma COMP METABOLIC PANEL Lab Routine Multiple sclerosis, relapsing-remitting (HCC) Expected: 09/15/2021, Expires: 11/15/2021 [facility] Work Phone: Comment on above: Expected: 09/15/2021 , Expires: 11/15/2021 Start: 09-15-2021 End: 11-15-2021 IMMUNOGLOBULINS KESHAWN IMMUNOGLOBULINS KESHAWN Lab Routine Multiple sclerosis, relapsing-remitting (HCC) Expected: 09/15/2021, Expires: 11/15/2021 [facility] Work Phone: Comment on above: Expected: 09/15/2021 , Expires: 11/15/2021 Start: 09-15-2021 End: 11-15-2021 LIPID PANEL BASIC LIPID PANEL BASIC Lab Routine Multiple sclerosis, relapsing-remitting (HCC) Expected: 09/15/2021, Expires: 11/15/2021 [facility] Work Phone: Comment on above: Expected: 09/15/2021 , Expires: 11/15/2021 Start: 07-13-2021 COVID-19 VACCINE (3 - Booster for Yeni series) COVID-19 VACCINE (3 - Booster for Yeni series) [facility] Start: 05-20-2021 DEPRESSION ASSESSMENT DEPRESSION ASS ESSMENT [facility] Start: 2018 Influenza vaccination LUNG CANCER SC REENING [facility] Start: 2018 Pneumococcal Vaccine : 50+ (2 of 2 - PCV) Pneumococcal Vaccine: 50+ (2 of 2 - PCV) [facility] Start: 2018 Screening for malign ant neoplasm of lung Lung Cancer Screening [facility] Start: 2018 SHINGRIX VACCINE (1 of 2) STAFFORD GRIX VACCINE (1 of 2) [facility] Start: 09-17-2013 Screening for malign ant neoplasm of breast Mammogram [facility] Start: 2013 COLOGUARD (FIT-DNA) COLOGUARD (FIT-D NA) [facility] Start: 2013 Colonoscopy COLONOSCOPY [facility] Start: 2013 COLORECTAL CANCER SCREENING COLORECTAL CANCER SCREENING [facility] Start: [address] COLONOGRAPHY [facility] Start: 2013 FECAL OCCULT BLOOD FECAL OCCULT BLOO D [facility] Start: 2013 Screening for malign ant neoplasm of colon [facility] Start: 2013 SIGMOIDOSCOPY SIGMOIDOSCOPY [facility] Start: 2008 Mammography [facility] Start: 2008 Screening for malign ant neoplasm of breast Mammogram Screening [facility] Start: 1998 HPV TESTING HPV TESTING [facility] Start: 1998 Screening for malign ant neoplasm of cervix [facility] Start: 1989 PAP TESTING PAP TESTING [facility] Start: 1989 Screening for malign ant neoplasm of cervix [facility] Start: 1987 Hepatitis B Vaccine (1 of 3 - 19+ 3-dose series) Hepatitis B Vaccine (1 of 3 - 19+ 3-dose series) [facility] Start: 1986 Anxiety Screening Anxiety Screening [facility] Start: 1986 Depression Screening Depression Scre ening [facility] Start: 1986 HIV SCREENING HIV SCREENING [facility] Start: 1986 HIV screening HIV Screening [facility] Start: 1968 HEPATITIS B (1 of 3 - 3-dose series) HEPATITIS B (1 of 3 - 3-dose series) [facility] Start: 1968 Hepatitis B Vaccine (1 of 3 - 3-dose series) Hepatitis B Vaccine (1 of 3 - 3-dose series) [facility] Start: 1968 Screening for malign ant neoplasm of colon [facility] End: 09-05-2024 EMG(NEURO/NI) EMG(NEURO/NI) EMG Routine Left arm weakness 1 Occurrences starting 09/06/2023 until 09/05/2024 [facility] Work Phone: Comment on above: 1 Occurrences starti ng 09/06/2023 until 09/05/2024 IMMUNOGLOBULINS KESHAWN IMMUNOGLOBUL INS KESHAWN Lab Routine Multiple sclerosis, relapsing-remitting (HCC) 09/18/2021 8:36 AM EDT [facility] Work Phone: End: 11-16-2023 ALIYA SCREENING ALIYA SCREENING Radiology Routine Encounter for screening mammogram for breast cancer 1 Occurrences starting 10/17/2022 until 11/16/2023 [facility] Work Phone: Comment on above: 1 Occurrences starti ng 10/17/2022 until 11/16/2023 End: 08-14-2024 MR Brain WO and W contrast IV MRI BRAIN WO/W IVCON Radiology Routine Multiple sclerosis (HCC) 1 Occurrences starting 07/16/2023 until 08/14/2024 [facility] Work Phone: Comment on above: 1 Occurrences starti ng 07/16/2023 until 08/14/2024 End: 10-05-2024 MR Cervical spine WO contrast MRI CERVICAL SPINE WO IVCON Radiology Routine Left arm weakness 1 Occurrences starting 09/06/2023 until 10/05/2024 [facility] Work Phone: Comment on above: 1 Occurrences starti ng 09/06/2023 until 10/05/2024 End: 10-15-2022 Mri brain brain stem w/o w/contrast material MRI BRAIN WO/W IVCON Radiology Routine Multiple sclerosis, relapsing-remitting (HCC) 1 Occurrences starting 09/15/2021 until 10/15/2022 [facility] Work Phone: Comment on above: 1 Occurrences starti ng 09/15/2021 until 10/15/2022 End: 12-14-2022 Mri brain brain stem w/o w/contrast material MRI BRAIN WO/W IVCON Radiology Routine Multiple sclerosis, relapsing-remitting (HCC) 1 Occurrences starting 11/14/2021 until 12/14/2022 [facility] Work Phone: Comment on above: 1 Occurrences starti ng 11/14/2021 until 12/14/2022 End: 09-29-2023 Mri brain brain stem w/o w/contrast material MRI BRAIN WO/W IVCON Radiology Routine Multiple sclerosis, relapsing-remitting (HCC) 1 Occurrences starting 08/30/2022 until 09/29/2023 [facility] Work Phone: Comment on above: 1 Occurrences starti ng 08/30/2022 until 09/29/2023 End: 09-29-2023 Mri spinal canal cervical w/o & w/contr matrl MRI CERVICAL SPINE WO/W IVCON Radiology Routine Multiple sclerosis, relapsing-remitting (HCC) 1 Occurrences starting 08/30/2022 until 09/29/2023 [facility] Work Phone: Comment on above: 1 Occurrences starti ng 08/30/2022 until 09/29/2023 OT PLAN OF CARE CERTIFICATION OT PLAN OF CARE CERTIFICATION Procedures Routine Multiple sclerosis, relapsing-remitting (HCC) Ordered: 01/16/2022 [facility] Work Phone: Comment on above: Ordered: 01/16/2022 Patient Education Hemorrhoids (D C) Diverticulosis (DC) Colon Polypectomy (DC) [facility] Work Phone: End: 12-15-2022 Screening mammography bi 2-view breast inc cad ALIYA SCREENING Radiology Routine Encounter for screening mammogram for breast cancer 1 Occurrences starting 11/15/2021 until 12/15/2022 [facility] Work Phone: Comment on above: 1 Occurrences starti ng 11/15/2021 until 12/15/2022 End: 10-05-2024 XR CERV OTHER 4V AP/LAT/FLX/EXT XR CERV OTHER 4V AP/LAT/FLX/EXT Radiology Routine Left arm weakness 1 Occurrences starting 09/06/2023 until 10/05/2024 [facility] Work Phone: Comment on above: 1 Occurrences starti ng 09/06/2023 until 10/05/2024 [facility] Immunizations Immunization Date Immunization Notes Care Provider [facility] 03-05-2024 Influenza, injectabl e, Madin Diane Canine Kidney, preservative free, quadrivalent Kristin Basil LIFTER/DRIVER Work Phone: [facility] 05-02-2023 influenza, intraderm al, quadrivalent, preservative free, injectable Shaikh Jonn BENITEZ Work Phone: [facility] 05-02-2023 influenza virus vacc ine, unspecified formulation Sarthak Escobar MD, PhD Work Phone: [facility] 04-30-2023 influenza, seasonal, injectable Shaikh Jonn BENITEZ Work Phone: [facility] 03-07-2022 influenza, high dose seasonal, preservative-free Shaikh Jonn BENITEZ Work Phone: [facility] 03-07-2022 influenza virus vacc ine, unspecified formulation Jessica Clarke PA-C Work Phone: [facility] 05-18-2021 COVID-19 mRNA-1273 (Moderna) Services [facility] Work Phone: [facility] 07-28-2020 Ilia and Ilia COVID 19 Vaccine [facility] Comment on above: Note: Patient tolera jonah well. No signs or symptoms of adverse reactions. Patient waited a minimum of 15 minutes. 04-08-2020 influenza, injectabl e, quadrivalent, preservative free Jessica Young PA-C Work Phone: [facility] 03-20-2019 influenza, injectabl e, quadrivalent, preservative free Jessica Young PA-C Work Phone: [facility] 06-05-2018 influenza, injectabl e, quadrivalent, preservative free Jessica Young PA-C Work Phone: [facility] 02-27-2017 influenza, injectabl e, quadrivalent, preservative free Jessica Young PA-C Work Phone: [facility] 10-02-2016 pneumococcal polysaccharide vaccine, 23 valent Jessica Young PA-C Work Phone: [facility] 10-02-2016 tetanus toxoid, redu maury diphtheria toxoid, and acellular pertussis vaccine, adsorbed Jessica Young PA-C Work Phone: [facility] 04-03-2016 influenza, injectabl e, quadrivalent, preservative free Jessica Young PA-C Work Phone: [facility] 03-19-2015 influenza, high dose seasonal, preservative-free Jessica Young PA-C Work Phone: [facility] 03-19-2015 influenza, injectabl e, quadrivalent, preservative free Eliazar Brooks DO Work Phone: [facility] 04-27-2014 influenza, high dose seasonal, preservative-free Jessica Young PA-C Work Phone: [facility] 04-27-2014 influenza, injectabl e, quadrivalent, preservative free Eliazar Brooks DO Work Phone: [facility] Healthcare Payers Date Payer Category Payer Medicare [id number] 2023 Medicare (Managed Care) 1.2. [id number] 2023 Medicare [id number]. [id number] 2022 Medicare [id number] 2020 Medicaid [facility] MEDICA[facility] [employer] MEDICAID [id number] 2020-Present [phone] [address] [place] [address] Medicaid [id number]. [id number] 2020 Medicaid [id number] [id number]. [id number] 1968 Unknown [id number] 2.16.840.1.712762.3.579.2. 593 1968 Unknown [id number] 2.16.840.1.084194.3.579.2. 593 1968 Unknown [id number] 2.16.840.1.255425.3.579.2. 593 1968 Unknown [id number] 2.16.840.1.929787.3.579.2. 593 1968 Unknown [id number] 2.16.840.1.356151.3.579.2. 593 1968 Unknown [id number] 2.16.840.1.977977.3.579.2. 727 1968 Unknown [id number] 2.16.840.1.573769.3.579.2. 727 1968 Unknown [id number] 2.16.840.1.140757.3.579.2. 727 1968 Unknown [id number] 2.16.840.1.853151.3.579.2. 1259 1968 Unknown [id number] 2.16.840.1.676452.3.579.2. 1258 1968 Unknown [id number] 2.16.840.1.423722.3.579.2. 1258 1968 Unknown [id number] 2.16.840.1.296097.3.579.2. 1258 1968 Unknown [id number] 2.16.840.1.068557.3.579.2. 1258 1968 Unknown [id number] 2.16.840.1.542860.3.579.2. 1258 1968 Unknown [id number] 2.16.840.1.794231.3.579.2. 1258 1968 Unknown [id number] 2.16.840.1.568490.3.579.2. 1258 1968 Unknown [id number] 2.16.840.1.969689.3.579.2. 1258 1968 Unknown [id number] 2.16.840.1.987511.3.579.2. 1258 1968 Unknown [id number] 2.16.840.1.217026.3.579.2. 1258 1968 Unknown [id number] 2.16.840.1.906588.3.579.2. 1258 1968 Unknown [id number] 2.16.840.1.636303.3.579.2. 1258 1968 Unknown [id number] 2.16.840.1.033278.3.579.2. 1258 1968 Unknown [id number] 2.16.840.1.045688.3.579.2. 1258 1968 Unknown [id number] 2.16.840.1.897864.3.579.2. 1258 1968 Unknown [id number] 2.16.840.1.695167.3.579.2. 1258 1968 Unknown [id number] 2.16.840.1.803363.3.579.2. 1259 1968 Unknown [id number] 2.16.840.1.984218.3.579.2. 9 1968 Unknown [id number] 2.16.840.1.416507.3.579.2. 9 1968 Unknown [id number] 2.16.840.1.220624.3.579.2. 1258 1968 Unknown [id number] 2.16.840.1.261698.3.579.2. 9 1968 Unknown [id number] 2.16.840.1.730470.3.579.2. 1258 1968 Unknown [id number] 2.16.840.1.515034.3.579.2. 9 1968 Unknown [id number] 2.16.840.1.640579.3.579.2. 9 1959 Private Health Insurance [id number] 1959 Unknown [id number] Medicare [id number] Self-pay [id number] 2.16.840.1.187355.3.140.1. 45889.5.4 Self-pay Self Pay [id number] Unknown Self Pay [id number] Social History Date Type Detail Facility Tobacco smoking status Unknown if ever [facility] [facility] Work Phone: Start: 1970 Sex Assigned At Female F [facility] Start: 09-05-2021 End: 11-13-2023 Tobacco smoking status NHIS Ex-smoker (finding) [facility] Start: 12-13-1996 End: 12-13-2016 History of tobacco use Current smoker [facility] Start: 12-13-1996 End: 12-13-2016 History of tobacco use Cigarette Smoker [facility] Start: 12-06-2017 End: 06-04-2023 Cigarettes smoked current (pack per day) - Reported 1 [facility] Start: 12-06-2017 End: 11-13-2023 Tobacco use and exposure Smokeless tobacco non-user [facility] Start: 11-01-2020 End: 07-10-2023 Alcohol intake Current drinker of alcohol (finding) [facility] Start: 08-02-2020 History SDOH Alcohol Frequency 2 [facility] Start: 08-02-2020 History SDOH Alcohol Std Drinks 3 [facility] Start: 08-08-2012 History SDOH Alcohol Comment rare [facility] Start: 08-02-2020 History SDOH Social Connections Get Together 1 [facility] Start: 08-02-2020 History SDOH Physica l Activity DPW 0 [facility] Start: 08-02-2020 History SDOH Stress 5 [facility] Start: 08-02-2020 History SDOH Financial 4 [facility] Start: 08-02-2020 Education 8 [facility] Start: 08-08-2012 End: 03-22-2022 Tobacco Comment plans to try to quit at some point but not ready. [facility] Start: 09-08-2021 End: 03-22-2022 Exposure to SARS-CoV-2 (event) Not sure [facility] Start: 08-02-2020 End: 06-04-2023 Sex Assigned At [facility] Do you belong to any clubs or organizations such as bahai groups, unions, fraternal or athletic groups, or school groups? No [facility] Are you now , , , , never or living with a partner? [facility] How often to you hav e a drink containing alcohol? Monthly or less [facility] How many standard dr inks containing alcohol do you have on a typical day? 5 or 6 [facility] How often do you hav e 6 or more drinks on 1 occasion? Less than monthly [facility] How hard is it for y ou to pay for the very basics like food, housing, medical care, and heating Not very hard [facility] Start: 06-04-2023 Adult Depression Screening Assessment [address] [place] [address] Do you feel stress - tense, restless, nervous, or anxious, or unable to sleep at night because your mind is troubled all the time - these days [OSQ] Very much [facility] (I/We) worried wheth er (my/our) food would run out before (I/we) got money to buy more. Sometimes true [facility] Start: 08-02-2020 Gender identity Identifies as female gender (finding) [facility] Start: 08-02-2020 Sexual orientation Heterosexual (rosa ever) [facility] Start: 06-05-2023 End: 08-18-2024 Alcohol intake Ex-drinker (finding) [facility] How many standard dr inks containing alcohol do you have on a typical day? 3 or 4 [facility] How hard is it for y ou to pay for the very basics like food, housing, medical care, and heating Very hard [facility] Do you feel stress - tense, restless, nervous, or anxious, or unable to sleep at night because your mind is troubled all the time - these days [OSQ] Only a little [facility] (I/We) worried wheth er (my/our) food [...] use Passive smoker [facility] Tobacco [facility] Comment on above: States smokes 1 PPD Tobacco smoking status No Smokin g Status Entered [facility] Medical Equipment Procedure Code Equipment Code Equipment Origin al Text Equipment Identifier Dates SHOULDER ARTHROS COPY W/ POSSIBLE REPAIR Eliazar Brooks DO 02/10/24 Non Biological Shoulder L [id number] [facility] Start: 02-10-2024 Goals Date Patient Goal Desired Activity /State Clinical Notes 08-14-2021 to 08-18-2024 Kristin Gracia NP - 08/18/2024 9:32 AM TERESITA MILIAN - 08/18/2024 9:20 AM Jarek Gracia NP - 08/18/2024 9:20 AM Jarek Gracia NP - 08/18/2024 6:16 AM EDTPatient Instructions Note Date & Type Note Facility 08-18-2024 History of Presen t illness Narrative Associated Problem(s): Primary insomnia Would like to trial mirtazapine for sleep Pt states that her anxiety is threw the roof She has a friend that takes MIRTAZAPINE and told her that she feels amazing yamilka would like to talk with you about trying this medication Images from the original note were not included. Yamilka Vasquez is a 54 y.o. female presents with chief complaint of No chief complaint on file. HPI: Here for a recheck: depression and anxiety, at last appt we increased her abilify to 10mg daily for depression She feels the abilify is helping her depression, but not the anxiety. It is hard for her to shut her mind off Physical sxs; chicken skin feeling sometimes, occ heart palpitation, otherwise sleeping well no other physical sxs Sister takes mirtazapine for her anxiety, states it helps her a lot. Yamilka has taken elavil in the past, no bad side effects SUBJECTIVE: MEDICATIONS: Current Outpatient Medications Medication Instructions albuterol HFA (Ventolin HFA) 90 mcg/act inhaler 2 puffs, Inhalation, Every 6 hours PRN ARIPiprazole (ABILIFY) 10 mg, Oral, Daily busPIRone (BUSPAR) 5 mg, Oral, 3 times daily cetirizine (ZYRTEC) 10 mg, Oral, Daily escitalopram (LEXAPRO) 10 mg, Oral, Daily ocrelizumab (Ocrevus) 300 MG/10ML solution 10 mL, [...] for difficulty urinating, dysuria and frequency. Musculoskeletal: Negative for arthralgias, back pain, joint swelling and myalgias. Skin: Negative for rash and wound. Neurological: Negative for dizziness, tremors, seizures, syncope and headaches. Psychiatric/Behavioral: Negative for behavioral problems, self-injury and suicidal ideas. The patient is nervous/anxious. Hematological: Does not bruise/bleed easily. Depression Endocrine: Negative for polydipsia, polyphagia and polyuria. Allergic/Immunologic: Negative for environmental allergies and food allergies. PAST MEDICAL HISTORY Past Medical History: Diagnosis Date Abnormal CBC 07/30/2023 Anxiety and depression ([facility]) Carpal tunnel syndrome 2002 Chronic diarrhea Chronic shoulder pain 05/01/2023 Class 3 severe obesity without serious comorbidity with body mass index (BMI) of 45.0 to 49.9 in adult ([facility]) 04/30/2023 Constipation Depression ([facility]) Hot flashes 07/30/2023 Hyperlipidemia, acquired ([facility]) 07/30/2023 Hypertension ([facility]) Knee pain, left anterior Major depression ([facility]) Morbid obesity with BMI of 40.0-44.9, adult ([facility]) Multiple sclerosis ([facility]) Night sweats 07/30/2023 LORENZO (obstructive sleep apnea) 07/30/2023 Pain of left middle finger Primary insomnia Rash Rectal burning Right knee pain, unspecified chronicity Sinusitis Stroke ([facility]) 07/30/2023 Urinary incontinence in female Vaginal discharge Vitamin D deficiency Past Surgical History: Procedure Laterality Date CARPAL TUNNEL RELEASE Right 2004 ECTOPIC SURGERY HYSTERECTOMY 1991 SHOULDER SURGERY Left 02/10/2024 Arthroscopy, RCR @ [facility] w/ MTP TUBAL LIGATION 1990 family history includes Aneurysm in her mother; Arthritis in her mother; Cancer in her father; Hypertension in her brother, mother, paternal grandfather, and sister; Stroke in her sister. OBJECTIVE: Visit Vitals BP 110/80 (BP Location: Right arm, Patient Position: Sitting, BP Cuff Size: Large adult) Pulse 98 Temp 98.2 F (Temporal) Resp 24 Wt 270 lb 3.2 oz SpO2 95% BMI 44.96 kg/m OB Status Unknown Smoking Status Former BSA 2.38 m Physical Exam Vitals and nursing note [...] is normal. Breath sounds: Normal breath sounds. Musculoskeletal: General: Normal range of motion. Cervical back: Normal range of motion and neck supple. Right lower leg: No edema. Left lower leg: No edema. Skin: General: Skin is warm and dry. Capillary Refill: Capillary refill takes 2 to 3 seconds. Findings: No rash. Neurological: General: No focal deficit present. Mental Status: She is alert and oriented to person, place, and time. Psychiatric: Mood and Affect: Mood normal. Behavior: Behavior normal. Thought Content: Thought content normal. Judgment: Judgment normal. Comments: Flat affect, Tearful, and sad ASSESSMENT AND PLAN: No follow-ups on file. Problem List Items Addressed This Visit Primary insomnia Would like to trial mirtazapine for sleep Relevant Medications mirtazapine (Remeron) 15 MG tablet Generalized anxiety disorder with panic attacks (CMS/HCC) Last appt increased dose of abilify to 10mg daily and buspar to 5mg TID, cont lexapro at 10mg daily Current meds: abilify, lexapro and buspar MELISSA 7=17 Relevant Medications mirtazapine (Remeron) 15 MG tablet busPIRone (Buspar) 7.5 MG tablet Morbid (severe) obesity due to excess calories (CMS/HCC) - Primary Discussed with patient their BMI (actual, verses recommended). We have also discussed lifestyle modifications: attempts to perform physical activity as chronic conditions allow, also to monitor dietary intake: increasing protein/fruits/veggies and lowering carb intake (unless contraindicated). Limit sodas, juices, and sugary drinks. Major depressive disorder, recurrent, moderate (CMS/HCC) Current meds: abilify, lexapro, buspar Will add mirtazapine Relevant Medications mirtazapine (Remeron) 15 MG tablet Associated Problem(s): Major depressive disorder, recurrent, moderate (CMS/HCC) Current meds: abilify, lexapro, buspar Will add mirtazapine Associated Problem(s): Generalized anxiety disorder with panic attacks (CMS/HCC) Last appt increased dose of abilify to 10mg daily and buspar to 5mg TID, cont lexapro at 10mg daily Current meds: abilify, lexapro and buspar MELISSA 7=17 Associated Problem(s): Morbid (severe) obesity due to excess calories (CMS/HCC) Discussed with patient their BMI (actual, verses recommended). We have also discussed lifestyle modifications: attempts to perform physical activity as chronic conditions allow, also to monitor dietary intake: increasing protein/fruits/veggies and lowering carb intake (unless contraindicated). Limit sodas, juices, and sugary drinks. documented in this encounter [facility] 08-18-2024 Instructions Kristin Gracia NP - 08/18/2024 9:20 AM EDT Cont escitalopram 10mg daily, as well as the aripriazole 10mg daily Increase the buspirone from 5mg , to 7.5mg and you can take this every 8 hour NEEDED for anxiety We will add the mirtazipine for sleep I will refer you to [facility] in [place], they should call you documented in this encounter [facility] 08-03-2024 Telephone encounter Note Patient needs to reschedule appointment she missed today. She is [facility] patient and was scheduled with [facility]. [facility] follow up visits are 30 minutes and new patients 40 minutes. This would be follow up visit. [facility] Work Phone: 08-03-2024 Miscellaneous Notes Patient needs to reschedule appointment she missed today. She is [facility] patient and was scheduled with Nasra. [facility] follow up visits are 30 minutes and new patients 40 minutes. This would be follow up visit. documented in this encounter [facility] 06-17-2024 History of Presen t illness Narrative [...] 10 MG tablet documented in this encounter [facility] 06-17-2024 Instructions Sherrie Boone NP - [...] NEAREST EMERGENCY DEPARTMENT. documented in this encounter [facility] 05-18-2024 History of Presen t illness Narrative [...] Date Abnormal CBC 07/30/2023 Anxiety and depression ([facility]) Carpal tunnel syndrome 2002 Chronic diarrhea Chronic shoulder pain 05/01/2023 Class 3 severe obesity without serious comorbidity with body mass index (BMI) of 45.0 to 49.9 in adult ([facility]) 04/30/2023 Constipation Depression ([facility]) Hot flashes 07/30/2023 Hyperlipidemia, acquired ([facility]) 07/30/2023 Hypertension ([facility]) Knee pain, left anterior Major depression ([facility]) Morbid obesity with BMI of 40.0-44.9, adult ([facility]) Multiple sclerosis ([facility]) Night sweats 07/30/2023 LORENZO (obstructive sleep apnea) 07/30/2023 Pain of left middle finger Primary insomnia Rash Rectal burning Right knee pain, unspecified chronicity Sinusitis Stroke ([facility]/HCC) 07/30/2023 Urinary incontinence in female Vaginal discharge Vitamin D deficiency Past Surgical History: Procedure Laterality Date CARPAL TUNNEL RELEASE Right 2004 ECTOPIC SURGERY HYSTERECTOMY 1991 SHOULDER SURGERY Left 02/10/2024 Arthroscopy, RCR @ [facility] w/ MTP TUBAL LIGATION 1990 family history [...] takes meds sleeps 7 hours Multiple sclerosis (CMS/HCC) Continue with neurology and treatment Encounter for screening mammogram for malignant neoplasm of breast Relevant Orders Bilateral screening mammogram Depression (CMS/HCC) Husbands over the last few [...] neurology and treatment documented in this encounter [facility] 05-18-2024 Instructions Kristin Gracia NP - 05/18/2024 9:20 AM EST Keep escitalopram at 10mg, add ariprazole 5mg daily, add buspar 5mg twice a day for anxiety Follow up appt in 4 weeks Need mammogram-I will fax order to [facility] documented in this encounter [facility] 05-04-2024 Telephone encounter Note Per Aria Agrawal, PT, she advises to notify Yamilka and inform due to ongoing neck pain we'd be able to cx Eval that is scheduled tomorrow. Though note w/ the date range post shoulder we'll keep referral open and to contact if neck pain may reside and willing to partake PT for shoulder. She noted the recommendation. [facility] 05-04-2024 Miscellaneous Notes Per Aria Agrawal, [...] notify if requested. documented in this encounter [facility] 05-04-2024 Telephone encounter Note She called noting she has been having severe neck pain which results in 3 bulging discs in her neck; she has an appt w/ Oren Chinchilla 08/11/24. Due to severity of pain she feels PT addressing her shoulder would be useless beginning tomorrow. She cx; I noted I would inform PT and notify if requested. [facility] 04-27-2024 History of Presen t illness [...] to verify the correct patient, procedure, equipment, patient support specialist and site/side marked as required. Patient was [...] for breakthrough discomfort. documented in this encounter [facility] 04-27-2024 Instructions MARCELLE Perea - 04/27/2024 [...] for breakthrough discomfort. documented in this encounter [facility] 04-27-2024 Telephone encounter Note Please call to schedule pt a fu appt in the next month [place] [facility] 04-27-2024 Miscellaneous Notes Please call to schedule pt a fu appt in the next month [place] documented in this encounter [facility] 03-09-2024 Telephone encounter Note Patient stated [...] ass she's doing it and hung up. [facility] 03-09-2024 Miscellaneous Notes Patient stated she [...] and hung up. documented in this encounter [facility] 03-05-2024 History of Presen t illness [...] hours as needed for shoulder surgical pain., [employer] #72, 167.7, cm, 02/05/24 11:09:00 EDT, [...] Date Abnormal CBC 07/30/2023 Anxiety and depression ([facility]) Carpal tunnel syndrome 2002 Chronic diarrhea Chronic shoulder pain 05/01/2023 Class 3 severe obesity without serious comorbidity with body mass index (BMI) of 45.0 to 49.9 in adult ([facility]) 04/30/2023 Constipation Depression ([facility]) Hot flashes 07/30/2023 Hyperlipidemia, acquired (CMS/[facility]) 07/30/2023 Hypertension ([facility]) Knee pain, left anterior Major depression ([facility]) Morbid obesity with BMI of 40.0-44.9, adult ([facility]) Multiple sclerosis ([facility]) Night sweats 07/30/2023 LORENZO (obstructive sleep apnea) 07/30/2023 Pain of left middle finger Primary insomnia Rash Rectal burning Right knee pain, unspecified chronicity Sinusitis Stroke ([facility]) 07/30/2023 Urinary incontinence in female Vaginal discharge Vitamin D deficiency Past Surgical History: Procedure Laterality Date CARPAL TUNNEL RELEASE Right 2005 ECTOPIC SURGERY HYSTERECTOMY 1991 SHOULDER SURGERY Left 02/10/2024 Arthroscopy, RCR @ [facility] w/ MTP TUBAL LIGATION 1990 family history [...] Relevant Orders Flu vaccine, MDCK, quadrivalent, PF ([id number]) (Flucelvax single dose syringe) Candidiasis of skin D/t her arm being in a sling, she is requesting we use nystatin powder as cream and ointment is not something she can properly use at this time Relevant Medications nystatin (Mycostatin) 804034 UNIT/GM powder documented in this encounter [facility] 02-25-2024 History of Presen t illness [...] for 2 more weeks. PT was sent [facility]'s Nitish large RC repair protocol. F/U will be in 2 months, prn if doing well. All questions answered. documented in this encounter [facility] 02-14-2024 Telephone encounter Note MTP- PO [...] you please call patient and inform her. [facility] 02-14-2024 Miscellaneous Notes MTP- PO Lt shoulder scope prob [facility] [place] 02/10/24 Patient called requesting a home health assistance, she states she has noone to help her I spoke with Naomi- with her type of surgery she will not qualify for any assistance. At this time we cannot order a home health assistance for her- Can you please call patient and inform her. documented in this encounter [facility] 02-13-2024 Telephone encounter Note Was wanting to know if she could stop taking the percocet, pain isn't that bad and she was wanting to take her trazodone. [facility] 02-13-2024 Miscellaneous Notes Was wanting to know if she could stop taking the percocet, pain isn't that bad and she was wanting to take her trazodone. documented in this encounter [facility] 02-10-2024 Hospital Discharg e instructions Patient Education 02/10/2024 15:39:49 Shoulder Cryocuff Patient Instructions - FT (CUSTOM) 02/10/2024 15:39:45 Post Op Patient Instructions - FT (CUSTOM) 02/06/2024 18:01:14 Brooks - After Your Shoulder Arthroscopy (Revised 06/17/14) (CUSTOM) [place], [place] [facility] AFTER YOUR SHOULDER ARTHROSCOPY [...] appointment. Eliazar Brooks, DO [facility] [address] [place] [id number] Reviewed: 15 Follow Up Care 12/24/2023 11:37:06 With:YUE Santamaria Address: [address] [place] [address]- Business (1) When:02/25/2024 14:30:00 Comments:Keep scheduled appointmentCall for any problems. [facility] 02-10-2024 Note Progress Note-Physic nakul Patient: YAMILKA VASQUEZ Age: 53 years Sex: Female : 1970 Associated Diagnoses: None Author: Mynor Enriquez MD Postoperative Information Postoperative disposition: Postoperative disposition: To PACU. Optimetrix number: Optimetrix number [id number]. Anesthetic utilized: General. Regional: Interscalene Block. Health [...] when meets criteria ( To home ). [facility] Comment on above: Result Comment: Elec tronically Signed By: Mynor Enriquez MD\.br\Date and Time Signed: 02/10/24 16:19 EDT 02-10-2024 Note Patient Education - Text [place], [place] [facility] AFTER YOUR SHOULDER ARTHROSCOPY [...] your appointment. Eliazar Brooks, DO [facility] [address] [place] [address] Reviewed: 06-03 [facility] 02-10-2024 Evaluation + Plan note Extrac jonah from: Title:ANES Post-operative Note---General Author: Mynor Enriquez MD. Date:02/10/24 Plan Transfer/Discharge: Transfer/Discharge Discharge when meets criteria ( To home ). Extracted from: Title:ANES Pre-operative Note 2022 Author:Mynor Young. Date:02/10/24 Plan [place] [employer] (ASA) physical status classification: Class III. Anesthetic Preoperative Plan: Anesthesia General, and LMA. Regional Interscalene block. [facility] 09-23-2024 NoteProgress Note-Physician Patient: YAMILKA VASQUEZ [...] hours as needed for shoulder surgical pain., [employer] #72, 167.7, cm, 02/05/24 11:09:00 EDT, [...] mL/hr PRN: (12) acetaminophen-oxyC (more content not included)...[facility] Comment on above:Result Comment: Electronically Signed By: Mina BENITEZ, Mynor Markham\.br\Date and Time Signed: 02/10/24 13:21 [id number] History of Present illness Narrative* Kristin Gracia [...] to see neuro to [facility] * Kristin Gracia NP - 02/03/2024 2:20 [...] Oral, 2 times daily, Take with food Wjdryuu-Nfrmkrtqyjh-Unslyfmutd (Breztri [employer]) 160-9-4.8 MCG/ACT aerosol 2 puffs, [...] Date Abnormal CBC 07/30/2023 Anxiety and depression ([facility]) Carpal tunnel syndrome 2002 Chronic diarrhea Chronic shoulder pain 05/01/2023 Class 3 severe obesity without serious comorbidity with body mass index (BMI) of 45.0 to 49.9 in adult ([facility]) 04/30/2023 Constipation Depression ([facility]) Hot flashes 07/30/2023 Hyperlipidemia, acquired ([facility]) 07/30/2023 Hypertension ([facility]) Knee pain, left anterior Major depression ([facility]) Morbid obesity with BMI of 40.0-44.9, adult ([facility]) Multiple sclerosis ([facility]) Night sweats 07/30/2023 LORENZO (obstructive sleep apnea) 07/30/2023 Pain of left middle finger Primary insomnia Rash Rectal burning Right knee pain, unspecified chronicity Sinusitis Stroke ([facility]) 07/30/2023 Urinary incontinence in female Vaginal discharge Vitamin D deficiency Past Surgical History: Procedure Laterality Date CARPAL TUNNEL RELEASE Right 2004 ECTOPIC SURGERY HYSTERECTOMY 1990 TUBAL LIGATION 1990 [...] (BMI) of 45.0 to 49.9 in adult ([facility]) Diverticulitis - Primary Fluids, atb, fu if not better If any fever, chills or worsening in symptoms go to ER Relevant Medications amoxicillin-clavulanate (Augmentin) 875-125 MG tablet documented in this encounterH[facility] [id number] History of Present illness Narrative* Renuka Bui [...] Date Abnormal CBC 07/30/2023 Anxiety and depression (CMS/HCC) Carpal tunnel syndrome 2002 Chronic diarrhea Chronic shoulder pain 05/01/2023 Class 3 severe obesity without serious comorbidity with body mass index (BMI) of 45.0 to 49.9 in adult ([facility]) 04/30/2023 Constipation Depression ([facility]) Hot flashes 07/30/2023 Hyperlipidemia, acquired ([facility]) 07/30/2023 Hypertension ([facility]) Knee pain, left anterior Major depression ([facility]) Morbid obesity with BMI of 40.0-44.9, adult ([facility]) Multiple sclerosis ([facility]) Night sweats 07/30/2023 LORENZO (obstructive sleep apnea) 07/30/2023 Pain of left middle finger Primary insomnia Rash Rectal burning Right knee pain, unspecified chronicity Sinusitis Stroke ([facility]) 07/30/2023 Urinary incontinence in female Vaginal discharge Vitamin D deficiency PAST SURGICAL HISTORY: Past Surgical History: Procedure Laterality Date CARPAL TUNNEL RELEASE Right 2005 ECTOPIC SURGERY HYSTERECTOMY 1991 TUBAL LIGATION 1990 SOCIAL HISTORY: Social History [...] 2 puffs, Inhalation, Every 6 hours PRN Vhtjdve-Cimkqericdx-Zjjpkdshay ([employer]tri [employer]osphere) 160-9-4.8 MCG/ACT aerosol 2 puffs, [...] shoulder. Eliazar Brooks D.O. documented in this encounter[facility] [id number] Telephone encounter Note* Telephone Encounter - Michelle Haines - 01/17/2024 12:20 PM EDT Called patient back to let her know that Jessica's preference is for the patient to remain at [facility] ifshe is to order the medication. Patient said she would establish care with local neurologist. [facility]08-30-2024 Miscellaneous Notes* Telephone Encounter - Michelle Haines - 01/17/2024 12:20 PM EDT Called patient back to let her know that Jessica's preference is for the patient to remain at [facility] ifshe is to order the medication. Patient said she would establish care with local neurologist. * Telephone Encounter - Miri Soni - 01/14/2024 2:09 PM EDT Kirss Call Name of caller : Yamilka Vasquez Relationship to patient: Self Return call phone number : [phone] Reason for call : Other : Brief description of concern :Please fax infusion orders to [phone] [facility]. [facility] Telephone encounter Note * Telephone Encounter - Miri Soni - 01/14/2024 2:09 PM EDT Kriss Call Name of caller : Yamilka Vasquez Relationship to patient: Self Return call phone number : [phone] Reason for call : Other : Brief description of concern :Please fax infusion orders to [phone] [facility]. [facility] Work Phone: 1(575) 613-901708-01-2024 Telephone encounter Note* Telephone Encounter - She [...] to call if she changes her mind. [facility]08-01-2024 Miscellaneous Notes* Telephone Encounter - She [...] she changes her mind. [facility]04[facility]2024 NoteHNO ID: [id number] Author: KATERIN MCCOY PA-C Service: ? Author Type: Physician Decorative Cutting Machine Tender Type: Progress Notes Filed: 09/06/2023 10:11 Note Text: SPINE SURGERY OUTPATIENT CONSULT This is a virtual visit using [employer] Zoom Video Visit. It required patient-provider interaction for the medical decision making as documented below. I have communicated my name and active licensure. The patient's identity and physical location were verified at the time of this visit. Either the patient or their legal dealer compliance representative has been informed of the risks and benefits of -- and alternatives to -- treatment through a remote evaluation and consents to proceed with the evaluation remotely. SERVICE DATE: 09/06/2023 PCP: Valdez Acosta MD REFERRING PROVIDER: Jessica Clarke [facility] Jessica [place] [facility] [id number] Consult requested for an opinion regarding the [...] in the past as well. Works with [employer] for her MS. Saw an outside orthopedic [...] Function Percentile 7 1 (more content not included)...[facility]04-19-2024 History of Present illness Narrative* Katerin Mccoy PA-C - 09/06/2023 9:41 AM EDT SPINE SURGERY OUTPATIENT CONSULT This is a virtual visit using [employer] Zoom Video Visit. It required patient- provider interaction for the medical decision making as documented below. I have communicated my name and active licensure. The patient's identity and physical location wereverified at the time of this visit. Either the patient or their legal dealer compliance representative has been informed of the risks and benefits of -- and alternatives to -- treatment through a remote evaluation andconsents to proceed with the evaluation remotely. SERVICE DATE: 09/06/2023 PCP: Valdez Acosta MD REFERRING PROVIDER: Jessica Clarke [address] [facility] [address] Consult requested for an opinion regarding the [...] in the past as well. Works with [employer] for her MS. Saw an outside orthopedic [...] DATA REVIEW [facility] records independently reviewed ASSESSMENT/PLAN (R21.084) Left arm weakness (primary encounter diagnosis) Virtual [...] TIME: 9:41 AM PAGER: documented in [facility]04-09-2024 NoteHNO ID: [id number] Author: ANISHA SANCHEZ PA-C Service: ? Author Type: Physician Decorative Cutting Machine Tender Type: Progress Notes Filed: 08/27/2023 11:37 Note [...] benefit from ongoing conservative management. BMI 47.78 [facility] History of Present illness Narrative* Anisha Sanchez [...] Vasquez Are you being referred by a [facility] for Spine Health Provider or Pain Management Provider at [facility]? No If answer is YES please schedule [...] facility where the MRI/CT/myelogram was completed: [facility] [address] [place] [address] MRI/CT/myelogram viewable in [facility]: Yes If not, please provide [phone] to fax in imaging reports for review. [...] where the surgery was completed: Additional Comments [phone] (Home Phone) documented in this encounterM[facility]04-04-2024 NoteHNO ID: [id number] Author: ?, ?, ? Service: ? Author Type: ? Type: Progress Notes Filed: 08/27/2023 11:37 Note Text: Patient name: Yamilka Vasquez Are you being referred by a [facility] Spine Health Provider or Pain Management Provider at [facility]? No If answer is YES please schedule [...] facility where the MRI/CT/myelogram was completed: [facility] Address: [address] [place] [address] MRI/CT/myelogram viewable in Epic: Yes If not, please provide [phone] to fax in imaging reports for review. [...] where the surgery was completed: Additional Comments [phone] (Home Phone)[facility]04-03-2024 Miscellaneous Notes* Telephone Encounter - Renuka Ellison - 08/21/2023 4:17 PM EDT Kriss Call Name of caller : Yamilka Vasquez Relationship to patient: Self Return call phone number : [phone] Reason for call : Other : Brief [...] call to discuss further. documented in this encounterM[facility]02-28-2024 Miscellaneous Notes* Telephone Encounter - Elizabeth Victoria RN - 07/17/2023 9:04 AM EST Called patient, no answer. Message left indicating [employer] message would be sent with reason for [...] since c-spine MRI was completed locally outside [facility] in April. Orders already placed * Telephone Encounter - Anjelica Alba - 07/15/2023 3:18 PM EST Kriss Call Name of caller : Steffanie Relationship to patient: Caregiver Return call phone number : appointments Reason for call : Order for MRI needed for Brain and Cervical documented in this encounterMans[facility] Hospital02-21-2024 History of Present illness Narrative* Paris Toledo DO - 07/10/2023 6:00 PM EST [facility] Initial Evaluation July 10, 2023 This appointment was requested by Jessica Clarke PA-C, for my medical opinion regarding the evaluation and management of the patient's Yamilka F Lonz problems, and my final recommendations will be communicated to the requesting health care provider by way of the shared medical record for internal providers or letter via the [employer] for external providers. SUBJECTIVE: Yamilka Vasquez a 53 year old presents to [facility], accompanied by self [...] (MS) PT several years ago (+) relief [facility] Alcohol Abuse - No Drug Abuse [...] No history of dysuria, frequency or incontinence SKIP MINER: Negative for abnormal vaginal bleeding, abnormal vaginal [...] supervised home exercise program (HEP): No 5. Miter Sawyer: No Passive conservative therapy lasting 6 weeks [...] which included preparing to see the patient, [id number] patient care, completing clinical documentation, performing a medically appropriate examination, counseling and educating the patient/family/caregiver, ordering medications, tests, or p rocedures, and communicating with other HCPs (not separately reported). Paris Toledo DO July 10, 2023 documented in this encounterM[facility] Hospital02-21-2024 NoteHNO ID: [id number] Author: PARIS TOLEDO DO Service: ? Author Type: Physician Type: Progress Notes Filed: 07/12/2023 11:26 Note Text: [facility] Initial Evaluation July 10, 2023 This appointment was requested by Jessica Clarke PA-C, for my medical opinion regarding the evaluation and management of the patient's Yamilka Vasquez problems, and my final recommendations will be communicated to the requesting health care provider by way of the shared medical record for internal providers or letter via the [employer] for external providers. SUBJECTIVE: Yamilka Vasquez a 53 year old presents to [facility], accompanied by self [...] (MS) PT several years ago (+) relief [facility] Alcohol Abuse - No Drug Abuse [...] No history of dysuria, frequency or incontinence SKIP MINER: Negative for abnormal vaginal bleeding, abnormal vaginal discharge MUSCULOSKELETAL: Negative for joint pain or swelling, back pain or muscle pain. NEUROLOGIC:Negative for focal numbness or weakness, headaches and dizziness or syncope. SKIN:Negative for lesions, rash, and itching. PSYCHIATRIC: Negative for sleep disturbance, mood disorder and recent psychosocial stressors. LINWOOD (more content not included)...[facility]02-07-2024 History of Present illness Narrative* Shaikh [...] 12:24 PM ESTAssociated Problem(s): COPD with exacerbation ([facility]) Patient reports cough, SOB, wheezing, chest congestion, [...] is a former smoker and quit in 2016. She had PFTs in 2017 and was [...] 8 weeks (around 08/21/2023). documented in this encounterHannibal [facility] [id number] NoteHNO ID: [id number] Author: She Brand RN Service: ? Author [...] ; pt states she had her tubes tied.[facility]12-14-2023 History of Present illness Narrative* Jessica Clarke PA-C - 05/02/2023 7:30 AM EST Images from the original note were not included. [facility] MULTIPLE SCLEROSIS FOLLOWUP/ESTABLISHED PATIENT VIRTUAL VISIT PRINCIPAL [...] modifying therapy INTERVAL HISTORY: Usual treating team: Marec/Vince I have communicated my name and active licensure. The patient's identity and physical location wereverified at the time of this visit. Either the patient or their legal dealer compliance representative has been informed of the risks [...] intake documentation Neuro-QoL Functions (higher=better functioning) Flowsheet [facility] Office Visit from 03/22/2022 in [facility] Office Visit from 11/14/2021 in [facility] from 09/15/2021 in [facility] Upper Extremity Domain T Score 32.58 -- 34 Lower Extremity Domain T Score 36.57 -- 37 Cognitive Function Domain T Score 38.32 39 41 Positive Affect Well Being T Score -- -- -- Ability To Participate In Social Roles T Score 29.36 39 43 Satisfaction With Social Roles T Score 40.46 -- 36 Neuro-QoL Symptoms (higher=worse symptoms) Flowsheet [facility] Office Visit from 03/22/2022 in [facility] Office Visit [facility]14[facility] from 09/15/2021 in [facility] Sleep Domain T Score 61.04 -- 64 [...] which included preparing to see the patient, [id number] patient care, completing clinical documentation, obtaining and/or reviewing separately obtained history, counseling and educating the patient/family/caregiver, ordering medications, manuel ts, or procedures, communicating with other HCPs (not separately reported), and communicating results to the patient/family/caregiver. The patient was discussed with Dr. Escobar prior to appointment. Jessica Clarke PA-C documented in this encounterMansfield Hospital12-14-2023 NoteHNO ID: [id number] Author: Jessica Clarke PA-C Service: ? Author Type: Physician Decorative Cutting Machine Tender Type: Progress Notes Filed: 05/02/2023 5:39 PM Note Text: [facility] FOLLOWUP/ESTABLISHED PATIENT VIRTUAL [...] visit. Either the patient or their legal dealer compliance representative has been informed of the risks [...] intake documentation Neuro-QoL Functions (higher=better functioning) Flowsheet [facility] Office Visit from 03/22/2022 [facility] Office Visit from 11/14/2021 [facility] from 09/15/2021 in [facility] Upper Extremity Domain T Score 32.58 -- 34 Lower Extremity Domain T Score 36.57 -- 37 Cognitive Function Domain T Score 38.32 39 41 Positive Affect Well Being T Score -- -- -- Ability To Participate In Social Roles T Score 29.36 39 43 Satisfaction With Social Roles T Score 40.46 -- 36 Neuro-QoL Symptoms (higher=worse symptoms) Flowsheet [facility] Office Visit from 03/22/2022 [facility] Office Visit from 11/14/2021 [facility] from 09/15/2021 in [facility] Sleep Domain T Score 61.04 -- 64 [...] spent a total of (more content not included)...[facility] 04-18-2022 Evaluation note* Encounter Date Diagnosis Assessment Notes Treatment Notes Treatment Clinical Notes Mar, Change in bowel function (ICD-10 - R19.4) CONTINUE METAMUCIL DIRECTED RTO 1 YR [facility] Other 11-11-2022 Miscellaneous Notes* Telephone Encounter - Lily Rich Pss - 03/30/2022 2:06 PM EST Patient is calling today and would like to inform that she has a new PCP. Would like to ask that Dr Acosta be removed. She now sees a Dr Kristin Arteaga in [place]. Any questions please call patient at [phone] documented in this encounterMansfield Hospital11-03-2022 History of Present illness Narrative* Jessica Clarke PA-C - 03/22/2022 12:40 PM EDT Images from the original note were not included. [facility] MULTIPLE SCLEROSIS FOLLOWUP/ESTABLISHED PATIENT VISIT PRINCIPAL NEUROLOGIC [...] ago and hands locked up when at [employer] (Mar 03) Trying to go for walks (uses cane) Has some new friends, which has been helpful Still gets frustrated with limitations SUBJECTIVE & REVIEW OF SYSTEMS: Neuro-QoL Functions (higher=better functioning) Flowsheet [facility] Office Visit from 03/22/2022 [facility] Office Visit from 11/14/2021 in [facility] from 09/15/2021 in [facility] Upper Extremity Domain T Score 32.58 -- 34 Lower Extremity Domain T Score 36.57 -- 37 Cognitive Function Domain T Score 38.32 39 41 Positive Affect Well Being T Score -- -- -- Ability To Participate In Social Roles T Score 29.36 39 43 Satisfaction With Social Roles T Score 40.46 -- 36 Neuro-QoL Symptoms (higher=worse symptoms) Flowsheet [facility] Office Visit from 03/22/2022 [facility] Office Visit from 11/14/2021 in [facility] from 09/15/2021 in [facility] Sleep Domain T Score 61.04 -- 64 Fatigue Domain T Score 58.38 -- 65 Anxiety Domain T Score 58.73 -- 61 Depression Domain T Score 60.06 58 60 Stigma Domain T Score 58.45 -- 57 Emotional Behavior Dyscontrol T Score -- -- -- *NeuroQoL is a multi-domain patient-reported quality of life questionnaire. PHQ-9 Flowsheet [facility] from 09/15/2021 in [facility] Office Visit from 11/01/2020 in [facility] PHQ-9 Score 11 16 *PHQ-9 is a questionnaire for depressive symptoms, with scores 0-4 indicating none, 5-9 mild, 10-14moderate, 15-19 moderately severe, and 20-27 severe symptoms. PROMIS-10 Flowsheet [facility] OT/PT/Speech Visit from 01/16/2022 in [facility] Occupational [facility] from 09/15/2021 in [facility] Global Physical Health T Score 32.4 32.4 [...] 5 Biceps 5 5 Triceps 5 5 Buoy Tender 5 5 Dorsal interossei 5 5 Lower [...] and Stretching Follow-up: In 6 months at [facility] I spent a total of 30 minutes on the date of the service which included preparing to see the patient, [id number] patient care, completing clinical documentation, obtaining and/or reviewing separately obtained history, performing a medically appropriate examination, counseling and educating the pat ient/family/caregiver, ordering medications, tests, or procedures, and communicating results to thepatient/family/caregiver. Jessica Clarke PA-C The chart was reviewed for possible participation in the following studies:None documented in this encounterMansfield Hospital10-18-2022 History of Present illness Narrative* Lizbeth [...] Care Gap or Scheduling/Wellness visits Payer: Payor: [facility] MEDICAID / Plan: [facility] [employer] MEDICAID OF [place] / Product [...] 06, 2022 4:06 PM documented in this encounterMansfield Hospital09-26-2022 Miscellaneous Notes* Telephone Encounter - Jaycee Haley - 02/12/2022 9:08 AM EDT Called pt LVM to see about setting up pt and psycology. 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; 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 [employer] - [employer]; 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, [...] flexion 5/5 5/5 Wrist extension 5/5 5/5 Buoy Tender strength (Myriam position 2) 70 lbs 53 [...] object from floor: 4 = able to picking crew supervisor object safely and easily Looking over shoulder: [...] - alternating feet, must use rail Total: 18/ Scores less than or equal to 19 [...] test: Right 24.13, 23.06 seconds; CV = 0.26503% Left 22.41, 26.54 seconds; CV = 0.75408% Norms for a 51 year old female [...] 60 35 YES Valid YES Valid Right service transformer repair supervisor best result: 80 lbs; percentile rank = 75 % Left service transformer repair supervisor best result: 78 lbs; percentile rank = 90 % Tremors?: No Hand Buoy Tender Norms: MALE Percentile - lbs. 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 X Agree Disagree 2. In a [...] 8 units: 113-127 mins Physical Performance Test (62231) Skilled Intervention: Neurologically-based functional capacity evaluation specific to the diagnosisof Multiple Sclerosis. Proper administration and selection of physical performance test based on clinical presentation, deficits, and needs. Jojo Pickard OTR/L documented in this encounterMansfield Hospital07-27-2022 Evaluation note* Encounter Date Diagnosis Assessment Notes Treatment Notes Treatment Clinical Notes Nov, Change in bowel function (ICD-10 - R19.8) ENCOURAGED METAMUCIL CAPSULES DAILY. Nov, Tubular adenoma (ICD-10 - D36.9) WILL REPEAT COLON IN 5 YEARS Nov, Diverticulosis (ICD-10 - K57.90) Nov, Hemorrhoids (ICD-10 - K64.9) [facility] Other 06-28-2022 History of Present illness Narrative* Sarthak Escobar MD, PhD - 11/14/2021 8:31 AM EDT Images from the original note were not included. [facility] FOLLOWUP/ESTABLISHED PATIENT VISIT PRINCIPAL NEUROLOGIC [...] modifying therapy INTERVAL HISTORY: Usual treating team: Marce/Vinec The patient is accompanied by self. The [...] (higher=better functioning) Office Visit from 11/14/2021 in [facility] from [facility]/15/20[facility] 11[facility] Upper Extremity Domain T Score 34 30 Lower Extremity Domain T Score 37 40 Cognitive Function Domain T Score 39 41 36 Positive Affect Well Being T Score Ability To Participate In Social Roles T Score 39 43 46 Satisfaction With Social Roles T Score 36 39 Neuro-QoL Symptoms (higher=worse symptoms) Office Visit from 11/14/2021 in [facility] from 09/15/2021 [facility] OfficeVisit from 11/01/2020 [facility] Sleep Domain T Score 64 64 Fatigue Domain T Score 65 69 Anxiety Domain T Score 61 65 Depression Domain T Score 58 60 66 Stigma Domain T Score 57 63 Emotional Behavior Dyscontrol T Score *NeuroQoL is a multi-domain patient-reported quality of life questionnaire. PHQ-9 [facility] from 09/15/2021 in [facility] Office Visit from 11/01/2020 [facility] PHQ-9 Score 11 16 *PHQ-9 is a questionnaire for depressive symptoms, with scores 0-4 indicating none, 5-9 mild, 10-14moderate, 15-19 moderately severe, and 20-27 severe symptoms. PROMIS-10 [facility] from 09/15/2021 in [facility] Office Visit from 11/01/2020 in [facility] T Score 32.4 32.4 [...] 5 Biceps 5 5 Triceps 5 5 Buoy Tender 5 5 Dorsal interossei 5 5 Lower [...] Lymph 1.00 - 4.00 k/uL 0.60 (L) [place]% % 12.0 Abs Steuben <0.87 k/uL 0.74 Eosin% % 2.4 Abs [...] 7T brain MRI in 3 months at [facility]. Will hold next infusion until reviewing MRI. [...] and Stretching Follow-up: In 3 months at [facility] with [facility] I spent a total of 40 minutes on the date of the service which included preparing to see the patient, [id number] patient care, completing clinical documentation, obtaining and/or reviewing separately obtained history, performing a medically appropriate examination, counseling and educating the pat ient/family/caregiver, ordering medications, tests, or procedures, independently interpreting results (not separately reported) and communicating results to the patient/family/caregiver. The patient was discussed with Dr. Escobar. Jessica Clarke PA-C [facility] STAFF PHYSICIAN NOTE OF PERSONAL INVOLVEMENT IN [...] Sarthak Escobar MD, PhD Associate Staff Neurologist [facility] documented in this encounterMansfield Hospital06-28-2022 History of Present illness Narrative* RT [place](R) - 11/14/2021 7:30 AM EDT Radiology Service [...] 2021 TIME: 7:43 AM documented in this encounterMansfield Hospital04-29-2022 History of Present illness Narrative* Jessica Clarke PA-C - 09/15/2021 11:19 AM EDT Images from the original note were not included. [facility] FOLLOWUP/ESTABLISHED PATIENT VIRTUAL [...] - mood worse Kristin Gracia is new LIFTER/DRIVER PCP - changed anxiety and depression meds [...] neurologist locally. Asking about switching infusions to [facility] REVIEW OF SYSTEMS: Mood: PHQ9 responses reviewed and appear below Bladder: colonoscopy recently Pain:reviewed on nursing intake documentation Neuro-QoL Functions (higher=better functioning) Appointment from 09/15/2021 in [facility] Office Visit from 11/01/2020 [facility] Office Visit from 07/31/2019 [facility] Upper Extremity Domain T Score 34 30 41.73 Lower Extremity Domain T Score 37 40 41.61 Cognitive Function Domain T Score 41 36 45 Positive Affect Well Being T Score 40.79 Ability To Participate In Social Roles T Score 43 46 39.92 Satisfaction With Social Roles T Score 36 39 43.36 Neuro-QoL Symptoms (higher=worse symptoms) Appointment from 09/15/2021 in [facility] Office Visit from 11/01/2020 [facility] Office Visit from 07/31/2019 in [facility] Sleep Domain T Score 64 64 64.93 [...] available 4. Consult OT - [facility] at [facility] 5. Continue with PCP as planned I spent a total of 20 minutes on the date of the service which included preparing to see the patient, [id number] patient care, completing clinical documentation, obtaining and/or reviewing separately obtained history, counseling and educating the patient/family/caregiver, ordering medications, manuel ts, or procedures and communicating results to the patient/family/caregiver. Jessica Clarke PA-C documented in this encounterMansfield Hospital04-19-2022 [facility]* Encounter Date Diagnosis Assessment Notes Treatment Notes Treatment Clinical Notes Jul, Constipation (ICD-10 - K59.00) Jul, Rectal bleeding (ICD-10 - K62.5) Jul, Rectal pain (ICD-10 - K62.89) Sample of Recticare cream given to patient Jul, Change in stool caliber (ICD-10 - R19.4) [facility] Other Evaluation + Plan note Future Appointments Appointment Date:02/10/2024 03:00:00 PM Scheduled Provider: Location:[facility] Appointment Type:Surgery FT [facility] evaluation noteNo assessment information available [facility] Work Phone: evalutymmj note* Diagnosis Multiple sclerosis, relapsing-remitting (HCC) Multiple sclerosis documented in this encounter [place] note* Diagnosis Multiple sclerosis (HCC)- Primary Multiple sclerosis Multiple sclerosis, relapsing-remitting (HCC) Multiple sclerosis documented in this encounter [place] noteNo InformationNort [facility] Other evaluation note* Diagnosis Multiple sclerosis, relapsing-remitting (HCC) Multiple sclerosis documented in this encounter [place] note* Diagnosis Multiple sclerosis, relapsing-remitting (HCC)- Primary Multiple sclerosis documented in this encounter [place] note* Diagnosis Encounter for screening mammogram for breast cancer documented in this encounter [place] note* Diagnosis Multiple sclerosis, relapsing-remitting (HCC) Multiple sclerosis documented in this encounter [place] note* Diagnosis Multiple sclerosis (HCC)- Primary Multiple sclerosis [facility] [place] [facility]* Diagnosis Multiple sclerosis, relapsing-remitting (HCC)- Primary Multiple sclerosis documented [facility] encounter [facility] [place] [facility]* Diagnosis Multiple sclerosis, relapsing-remitting (HCC)- Primary Multiple sclerosis documented [facility] encounter [facility] [place] [facility]* Diagnosis Encounter for screening mammogram for breast cancer documented in this encounter [facility] [place] [facility]* Diagnosis Multiple sclerosis (HCC)- Primary Multiple sclerosis [facility] this encounter [facility] [place] [facility]* Diagnosis Multiple sclerosis (CMS/HCC)- Primary Multiple sclerosis Primary hypertension (CMS/HCC) Unspecified essential hypertension Anxiety and depression (CMS/HCC) COPD with exacerbation (CMS/HCC) Non-recurrent acute suppurative otitis media of left ear without spontaneous rupture of tympanic membrane [facility] Cervical disc disorder with radiculopathy- Primary Brachial neuritis or radiculitis nos Cervical stenosis of spine Spinal stenosis in cervical region Chronic neck pain Cervicalgia documented in this encounter [facility] [place] [facility]* Diagnosis Multiple sclerosis (HCC)- Primary Multiple sclerosis documented in this encounter [facility] [place] [facility]* Diagnosis Cervical stenosis of spine- Primary Spinal stenosis in cervical region documented in this encounter [facility] [place] [facility]* Diagnosis Left arm weakness- Primary Other musculoskeletal symptoms referable to limbs documented in this encounter [facility] [place] [facility]* Diagnosis Multiple sclerosis (HCC)- Primary Multiple sclerosis Vitamin D deficiency Unspecified vitamin D deficiency documented [facility] this encounter [facility] [place] [facility]* Diagnosis S/P arthroscopy of left shoulder- Primary documented [facility] encounter [facility]* Diagnosis S/P arthroscopy of left shoulder documented in this encounter [facility]* Diagnosis Class 3 severe [...] skin and nails [facility]* [...] other sinus- Primary [facility] in [facility] [...] Acute cough- Primary [facility] in [facility] [...] and depression (CMS/HCC) documented in this encounter [facility]* Diagnosis Pre-op testing- Primary Unspecified pre-operative examination Rotator cuff impingement syndrome of left shoulder documented in this encounter [facility]* Diagnosis Diverticulitis- Primary Diverticulitis of colon (without mention of hemorrhage) Class 3 severe obesity without serious comorbidity with body mass index (BMI) of 45.0 to 49.9 in adult, unspecified obesity type (CMS/HCC) documented in this encounter [facility]* Diagnosis Class 3 severe [...] of left shoulder documented in this encounter [facility]* Diagnosis Multiple sclerosis (CMS/HCC)- Primary Multiple sclerosis Rotator cuff impingement syndrome of left shoulder- Primary documented in this encounter [facility]* Diagnosis Class 3 severe obesity [...] Generalized anxiety disorder with panic attacks (CMS/HCC) Acute non-recurrent frontal sinusitis- Primary [facility]* Diagnosis Class 3 severe obesity without serious comorbidity with body mass index (BMI) of 45.0 to 49.9 in adult, unspecified obesity type- Primary Anxiety and depression (CMS/HCC) Primary insomnia [...] to 49.9 in adult, unspecified obesity type Chronic bronchitis, unspecified chronic bronchitis type (CMS/HCC) [...] to 49.9 in adult, unspecified obesity type 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 Mixed incontinence urge and stress (male)(female) Non-recurrent acute suppurative otitis media of left ear without spontaneous rupture of tympanic membrane Chronic bronchitis, unspecified chronic bronchitis type (CMS/HCC) Multiple sclerosis (CMS/HCC) Multiple sclerosis Class 3 severe obesity without serious comorbidity with body mass index (BMI) of 45.0 to 49.9 in adult, unspecified obesity type Anxiety and depression (CMS/HCC)- Primary Chronic bronchitis, [...] to 49.9 in adult, unspecified obesity type Abnormal weight gain Abnormal CBC Other abnormal [...] to 49.9 in adult, unspecified obesity type Encounter for subsequent annual wellness visit (AWV) in Medicare patient- Primary LORENZO (obstructive sleep apnea) Obstructive sleep apnea (adult) (pediatric) Multiple sclerosis (CMS/HCC) Multiple sclerosis Primary insomnia Persistent disorder of initiating or maintaining sleep Class 3 severe obesity without serious comorbidity with body mass index (BMI) of 45.0 to 49.9 in adult, unspecified obesity type Encounter for screening mammogram for malignant neoplasm of breast Moderate episode of recurrent major depressive disorder (CMS/HCC) Generalized anxiety disorder with panic attacks (CMS/HCC) Generalized anxiety disorder with panic attacks (CMS/HCC)- Primary Multiple sclerosis (CMS/HCC) Multiple sclerosis Major depressive disorder, recurrent, moderate (CMS/HCC) Major depressive disorder, recurrent episode, moderate Morbid (severe) obesity due to excess calories (CMS/HCC) Body mass index (BMI) 45.0-49.9, adult (CMS/HCC) Moderate episode of recurrent major depressive disorder (CMS/HCC) Generalized anxiety disorder with panic attacks (CMS/HCC)- Primary Morbid (severe) obesity due to excess calories (CMS/HCC) Major depressive disorder, recurrent, moderate (CMS/HCC) Major depressive disorder, recurrent episode, moderate Primary insomnia Persistent disorder of initiating or maintaining sleep documented [facility] this encounter [facility] Narrative - Reported* Type Description Date Surgical History ectopic Surgical History tubal ligation Surgical History caprpal tunnel release [facility] Other History general Narrative - Reported* Type Description Date Surgical History ectopic Surgical History tubal ligation Surgical History caprpal tunnel release Hospitalization History see above [facility] Other Hospital course Narrative No data available for this section [facility] Hospital Discharge instructions No data available for this section [facility] Progress note No data available for this section [facility] Reason for referral (narrative)* Diagnostic Procedure Only (Routine) - Pending Review Specialty Diagnoses / Procedures Referred By Atilio t Referred To Contact [facility] Diagnoses Encounter for screening mammogram for breast cancer Procedures ALIYA SCREENING SCREENING MAMMOGRAPHY BI 2-VIEW BREAST INC Valdez Cohen MD [address] [place] [address] [facility] [address] [place] [address] Referral ID Status Reason Start Date Expiration Date Visits Requested Visits Authorized [id number] Pending Review Auto-Generat ed Referral 11/15/2021 12/15/2022 [address] [facility] for referral (narrative)* Diagnostic Procedure Only (Routine) - Pending Review Specialty Diagnoses / Procedures Referred By Atilio t Referred To Contact [facility] Diagnoses Encounter for screening mammogram for breast cancer Procedures ALIYA SCREENING SCREENING MAMMOGRAPHY BI 2-VIEW BREAST INC Valdez Cohen MD [address] [place] [address] [facility] [address] [place] [address] Referral ID Status Reason Start Date Expiration Date Visits Requested Visits Authorized [id number] Pending Review Auto-Generat ed Referral 10/17/2022 11/16/2023 [address] [facility] for referral (narrative)* Consultation (Routine) Specialty Diagnoses / Procedures Referred By Contac t Referred To Contact Neurology [facility] [address] [place] [phone] Aron Chinchilla MD [address] [facility] [address] [place] [address] Referral ID Status Reason Start Date Expiration Date V isits Requested Visits Authorized Specialty Services Required [facility] HealthcareReason for visit NarrativeREFERRED BY [employer] FOR [employer]ATION, (REFERRAL NOTE RECEIVED)[facility] Other Reason for visit Narrative* Rehabilitation - Outpatient (Routine) - Authorized Specialty Diagnoses / Procedures Referred By Atilio carbone Referred To Contact Physical Therapy Diagnoses S/P arthroscopy of left shoulder Procedures [place] OFFICE/OUTPATIENT [facility] MDM 60 MINUTES Eliazar Brooks, DO [address] [place] [address] Phone: tel: fax: Aria Agrawal PT Referral ID Status Reason Start Date Expiration Date Visits Requested Visits Authorized [id number] Authorized Specialty Services Required 4 04/10/2024 12 12 [facility] Summary Purpose [...] Multiple sclerosis, relapsing-remitting (HCC) Procedures CONSULT TO MANAGER SUPPLY OCCUPATIONAL THERAPY EVAL HIGH COMPLEX 60 MINS Jessica Clarke PA-C [address] [facility] [place] [address] [facility] [address] [place] [address] Referral ID Status Reason Start Date Expiration Date Visits Requested Visits Authorized [id number] Pending Review Auto-Generat ed Referral 09/15/2021 09/15/2022 1 1 Specialty Diagnoses / Procedures Referred By Atilio carbone Referred To Contact MR IMAGING Diagnoses Multiple sclerosis, relapsing-remitting (HCC) Procedures MRI BRAIN WO/W IVCON MRI BRAIN BRAIN STEM W/O W/CONTRAST MATERIAL Jessica Clarke PA-C [address] [place] [address] Mr Imaging Referral ID Status Reason Start Date Expiration Date Visits Requested Visits Authorized [id number] Pending Review Auto-Generat ed Referral 09/15/2021 10/15/2022 1 1 Referral ID Status Reason Start Date Expiration Date V isits Requested Visits Authorized [id number] Closed Auto-Generate d Referral 09/15/2021 11/25/2021 1 1 Specialty Diagnoses / Procedures Referred By Contac t Referred To Contact MR IMAGING Diagnoses Multiple sclerosis, relapsing-remitting (HCC) Procedures MRI BRAIN WO/W IVCON MRI BRAIN BRAIN STEM W/O W/CONTRAST MATERIAL Sarthak Escobar MD, PhD [address] [place] [address] Mr Imaging Referral ID Status Reason Start Date Expiration Date Visits Requested Visits Authorized [id number] Pending Review Auto-Generat ed Referral 11/14/2021 12/14/2022 1 1 Specialty Diagnoses / Procedures Referred By Contac t Referred To Contact MR IMAGING Diagnoses Multiple sclerosis, relapsing-remitting (HCC) Procedures MRI CERVICAL SPINE WO/W IVCON MRI SPINAL CANAL CERVICAL W/O & W/CONTR MATRL Jessica Clarke PA-C [address] [place] [address] Mr Imaging Referral ID Status Reason Start Date Expiration Date Visits Requested Visits Authorized [id number] Pending Review Auto-Generat ed Referral 08/30/2022 09/29/2023 1 1 Referral ID Status Reason Start Date Expiration Date Visits Requested Visits Authorized [id number] Pending Review Auto-Generat ed Referral 08/30/2022 09/29/2023 1 1 Specialty Diagnoses / Procedures Referred By Contac t Referred To Contact [facility] Diagnoses Cervical disc disorder with radiculopathy Procedures CONSULT TO PHYSICAL THERAPY PHYSICAL THERAPY EVALUATION HIGH COMPLEX 45 MINS [place], [address] [address] [address] [facility] [address] [place] [address] Referral ID Status Reason Start Date Expiration Date Visits Requested Visits Authorized [id number] Pending Review Auto-Generat ed Referral 07/10/2023 07/09/2024 1 1 Specialty Diagnoses / Procedures Referred By Contac t Referred To Contact MR IMAGING Diagnoses Multiple sclerosis (HCC) Procedures MRI BRAIN WO/W IVCON MRI BRAIN BRAIN STEM W/O W/CONTRAST MATERIAL Jessica Clarke PA-C [address] [place] [address] Mr Imaging [place] [address] Referral ID Status Reason Start Date Expiration Date Visits Requested Visits Authorized [id number] Pending Review Auto-Generat ed Referral 07/16/2023 08/14/2024 1 1 Specialty Diagnoses / Procedures Referred By Contac t Referred To Contact Diagnoses Cervical stenosis of spine Procedures CONSULT TO SPINE SURGERY OFFICE/OUTPATIENT [facility] 60 MINUTES Jessica Clarke PA-C [address] [place] [address] Referral ID Status Reason Start Date Expiration Date Visits Requested Visits Authorized [id number] Authorized PCP Requested Referral 08/22/2023 08/21/2024 1 1 Specialty Diagnoses / Procedures Referred By Contac t Referred To Contact MR IMAGING Diagnoses Left arm weakness Procedures MRI CERVICAL SPINE WO IVCON MRI SPINAL CANAL CERVICAL W/O CONTRAST MATRL Katerin Mccoy PA-C [address] [place] [address] Mr Imaging [place] [address] Referral ID Status Reason Start Date Expiration Date Visits Requested Visits Authorized [id number] Pending Review Auto-Generat ed Referral 09/06/2023 10/05/2024 1 1 Specialty Diagnoses / Procedures Referred By Contac t Referred To Contact [facility] Diagnoses Left arm weakness Procedures EMG(NEURO/NI) NERVE CONDUCTION STUDIES 9-10 STUDIES Katerin Mccoy PA-C [address] [place] [id number] [facility] [address] [place] [address] Referral ID Status Reason Start Date Expiration Date Visits Requested Visits Authorized [id number] Pending Review Auto-Generat ed Referral 09/06/2023 09/05/2024 1 1 Specialty Diagnoses / Procedures Referred By Contac t Referred To Contact XR IMAGING Diagnoses Left arm weakness Procedures XR CERV OTHER 4V AP/LAT/FLX/EXT RADEX SPINE CERVICAL 4 OR 5 VIEWS Katerin Mccoy PA-C [address] [place] [address] [place] [address] Referral ID Status Reason Start Date Expiration Date Visits Requested Visits Authorized [id number] Pending Review Auto-Generat ed Referral 09/06/2023 10/05/2024 1 1 Specialty Diagnoses / Procedures Referred By Contac t Referred To Contact Physical Therapy Diagnoses S/P arthroscopy of left shoulder Procedures [place] OFFICE/OUTPATIENT [facility] 60 MINUTES Eliazar Brooks, DO [address] [facility] [address] Aria Agrawal PT Referral ID Status Reason Start Date Expiration Date Visits Requested Visits Authorized [id number] Pending Review Specialty Services Required 02/25/2024 08/23/2024 [...] and content) DATE CREATED AUTHOR 11/12/2017 [facility] DATE CREATED AUTHOR AUTHOR'S ORGANIZ ATION 11/13/2017 [facility] DATE CREATED AUTHOR AUTHOR'S ORGANIZ ATION 09/14/2021 [facility] DATE CREATED AUTHOR AUTHOR'S ORGANIZ ATION 10/02/2022 [facility] DATE CREATED AUTHOR AUTHOR'S ORGANIZ ATION 12/21/2023 [facility] DATE CREATED AUTHOR AUTHOR'S ORGANIZ ATION 02/07/2024 [facility] DATE CREATED AUTHOR AUTHOR'S ORGANIZ ATION 02/18/2024 [facility] DATE CREATED AUTHOR AUTHOR'S ORGANIZ ATION 08/19/2024 [facility] dical Specialists EPIC Medical History (unrecognize d section and content) Includes: Medical History in patient's chartNo Medical History Recorded Evaluations & Outcomes (unre cognized section and content) Includes: Evaluations & Outcomes for active GoalsNo Outcomes Recorded Care Teams (unrecognized sec tion and content) Team Status: Inactive Member Role Status Dates Services [facility] Primary Care Provider Active Tyshawn Palencia MD Attending Provider Active Team Status: Active Member Role Status Dates Services [facility] Primary Care Provider Active Prospect Manager Relationship Specialty Start Date End Date Valdez Acosta MD [address] [place] [address], [place] [address] PCP - General Internal Medicine 11/01/20 Prospect Manager Relationship Specialty Start Date End Date Valdez Acosta MD [address] [place] [address] PCP - General Internal Medicine 11/01/20 Prospect Manager Relationship Specialty Start Date End Date Valdez Acosta MD [address] [place] [address], [place] [address] PCP - General Internal Medicine 11/01/20 Prospect Manager Relationship Specialty Start Date End Date Valdez Acosta MD [address] [place] [address] PCP - General Internal Medicine 11/01/20 Prospect Manager Relationship Specialty Start Date End Date Valdez Acosta MD [address] [place] [address] PCP - General Internal Medicine 11/01/20 Prospect Manager Relationship Specialty Start Date End Date Valdez Acosta MD [address] [place] [address] PCP - General Internal Medicine 11/01/20 Prospect Manager Relationship Specialty Start Date End Date Valdez Acosta MD [address] [place] [address] PCP - General Internal Medicine 11/01/20 Prospect Manager Relationship Specialty Start Date End Date Valdez Acosta MD [address] [place] [address], [place] [address] PCP - General Internal Medicine 11/01/20 Prospect Manager Relationship Specialty Start Date End Date Valdez Acosta MD [address] [place] [address] [place] [address] PCP - General Internal Medicine 11/01/20 Prospect Manager Relationship Specialty Start Date End Date Valdez Acosta MD [address] [place] [address] PCP - General Internal Medicine 11/01/20 Prospect Manager Relationship Specialty Start Date End Date Valdez Acosta MD [address] [place] [address] PCP - General Internal Medicine 11/01/20 Prospect Manager Relationship Specialty Start Date End Date Valdez Acosta MD [address] [place] [address] PCP - General Internal Medicine 11/01/20 Prospect Manager Relationship Specialty Start Date End Date Valdez Acosta MD [address] [place] [address] PCP - General Internal Medicine 11/01/20 Prospect Manager Relationship Specialty Start Date End Date Valdez Acosta MD [address] [place] [address] PCP - General Internal Medicine 11/01/20 Prospect Manager Relationship Specialty Start Date End Date Maxim Lanza MD [address] [place] [address] PCP - General Family Medicine 04/22/23 Kristin Gracia NP [address] [place] [address] Nurse Practitioner Family Medicine 05/20/22 Prospect Manager Relationship Specialty Start Date End Date Maxim Lanza MD [address] [place] [address] PCP - General Family Medicine 04/22/23 Kristin Gracia NP [address] [place] [address] Nurse Practitioner Family Medicine 05/20/22 Prospect Manager Relationship Specialty Start Date End Date Valdez Acosta MD [address] [place] [address] PCP - General Internal Medicine 11/01/20 Prospect Manager Relationship Specialty Start Date End Date Valdez Acosta MD [address] [place] [address] PCP - General Internal Medicine 11/01/20 Prospect Manager Relationship Specialty Start Date End Date Valdez Acosta MD [address] [place] [address] PCP - General Internal Medicine 11/01/20 Prospect Manager Relationship Specialty Start Date End Date Valdez Acosta MD [address] [place] [address] PCP - General Internal Medicine 11/01/20 Prospect Manager Relationship Specialty Start Date End Date Valdez Acosta MD [address] [place] [address] PCP - General Internal Medicine 11/01/20 Prospect Manager Relationship Specialty Start Date End Date Valdez Acosta MD [address] [place] [address] PCP - General Internal Medicine 11/01/20 Prospect Manager Relationship Specialty Start Date End Date Valdez Acosta MD [address] [place] [address] PCP - General Internal Medicine 11/01/20 Prospect Manager Relationship Specialty Start Date End Date Maxim Lanza MD [address] [place] [address] PCP - General Family Medicine 07/15/23 Kristin Gracia NP [address] [place] [address] Primary Care Provider Family Medicine 05/20/22 Prospect Manager Relationship Specialty Start Date End Date Maxim Lanza MD [address] [place] [address] PCP - General Family Medicine 07/15/23 Kristin Gracia NP [address] [place] [address] Primary Care Provider Family Medicine 05/20/22 Prospect Manager Relationship Specialty Start Date End Date Maxim Lanza MD [address] [place] [address] PCP - General Family Medicine 07/15/23 Kristin Gracia NP [address] [place] [address] Primary Care Provider Family Medicine 05/20/22 Prospect Manager Relationship Specialty Start Date End Date Maxim Lanza MD [address] [place] [address] PCP - General Family Medicine 07/15/23 Kristin Gracia NP [address] [place] [address] Primary Care Provider Family Medicine 05/20/22 Prospect Manager Relationship Specialty Start Date End Date Maxim Lanza MD [address] [place] [address] PCP - General Family Medicine 07/15/23 Kristin Gracia NP [address] [place] [address] Primary Care Provider Family Medicine 05/20/22 Prospect Manager Relationship Specialty Start Date End Date Maxim Lanza MD [address] [place] [address] PCP - General Family Medicine 07/15/23 Kristin Gracia NP [address] [place] [address] Primary Care Provider Family Medicine 05/20/22 Prospect Manager Relationship Specialty Start Date End Date Maxim Lanza MD [address] [place] [address] PCP - General Family Medicine 07/15/23 Kristin Gracia NP [address] [place] [address] Primary Care Provider Family Medicine 05/20/22 Prospect Manager Relationship Specialty Start Date End Date Maxim Lanza MD [address] [place] [address] PCP - General Family Medicine 07/15/23 Kristin Gracia NP [address] [place] [address] Primary Care Provider [facility] Medicine 05/20/22 Prospect Manager Relationship Specialty Start Date End Date Maxim Lanza MD [address] [place] [address] PCP - General Family Medicine 07/15/23 Kristin Gracia NP [address] [place] [address] Primary Care Provider [facility] Medicine 05/20/22 Prospect Manager Relationship Specialty Start Date End Date Maxim Lanza MD [address] [place] [address] PCP - General Family Medicine 07/15/23 Kristin Gracia NP [address] [place] [address] Primary Care Provider [facility] Medicine 05/20/22 Prospect Manager Relationship Specialty Start Date End Date Maxim Lanza MD [address] [place] [address] PCP - General Family Medicine 07/15/23 Kristin Gracia NP [address] [place] [address] Primary Care Provider Family Medicine 05/20/22 Prospect Manager Relationship Specialty Start Date End Date Maxim Lanza MD [address] [place] [address] PCP - General Family Medicine 07/15/23 Kristin Gracia NP [address] [place] [address] Primary Care Provider Family Medicine 05/20/22 Prospect Manager Relationship Specialty Start Date End Date Maxim Lanza MD [address] [place] [address] PCP - General Family Medicine 07/15/23 Kristin Gracia NP [address] [place] [address] Primary Care Provider Family Medicine 05/20/22 Prospect Manager Relationship Specialty Start Date End Date Maxim Lanza MD [address] [place] [address] PCP - General Family Medicine 07/15/23 Kristin Gracia NP [address] [place] [address] Primary Care Provider Family Medicine 05/20/22 Prospect Manager Relationship Specialty Start Date End Date Maxim Lanza MD [address] [place] [address] PCP - General Family Medicine 07/15/23 Kristin Gracia NP [address] [place] [address] Primary Care Provider Family Medicine 05/20/22 Prospect Manager Relationship Specialty Start Date End Date Maxim Lanza MD [address] [place] [address] PCP - General Family Medicine 07/15/23 Kristin Gracia NP [address] [place] [address] Primary Care Provider Family Medicine 05/20/22 Prospect Manager Relationship Specialty Start Date End Date Maxim Lanza MD [address] [place] [address] PCP - General Family Medicine 07/15/23 Kristin Gracia NP [address] [place] [address] Primary Care Provider Family Medicine 05/20/22 Prospect Manager Relationship Specialty Start Date End Date Maxim Lanza MD [address] [place] [address] PCP - General Family Medicine 07/15/23 Kristin Gracia NP [address] [place] [address] Primary Care Provider Family Medicine 05/20/22 Prospect Manager Relationship Specialty Start Date End Date Maxim Lanza MD [address] [place] [address] PCP - General Family Medicine 07/15/23 Kristin Gracia, KIRK [address] [place] [address] Primary Care Provider Family Medicine 05/20/22 Prospect Manager Relationship Specialty Start Date End Date Valdez Acosta MD [address] [place] [address] PCP - General Internal Medicine 11/01/20 Sherrie Smith PA-C [address] [place] [address] [id number] Warehouse Consultant Internal Medicine 04/26/24 Elizabeth Lopez APRN.PERSONAL SERVICE REPRESENTATIVE [address] [place] [address] Warehouse Consultant Family Medicine 04/26/24 Prospect Manager Relationship Specialty Start Date End Date Maxim Lanza MD [address] [place] [address] PCP - General Family Medicine 07/15/23 Kristin Gracia, KIRK [address] [place] [address] Primary Care Provider Family Medicine 05/20/22 Prospect Manager Relationship Specialty Start Date End Date Maxim Lanza MD [address] [place] [address] PCP - General Family Medicine 07/15/23 Kristin Gracia NP [address] [place] [address] Primary Care Provider Family Medicine 05/20/22 Prospect Manager Relationship Specialty Start Date End Date Maxim Lanza MD [address] [place] [address] PCP - General Family Medicine 07/15/23 Kristin Gracia NP [address] [place] [address] Primary Care Provider Family Medicine 05/20/22 Prospect Manager Relationship Specialty Start Date End Date Maxim Lanza MD [address] [place] [address] PCP - General Family Medicine 07/15/23 Kristin Gracia NP [address] [place] [address] Primary Care Provider Family Medicine 05/20/22 Prospect Manager Relationship Specialty Start Date End Date Maxim Lanza MD [address] [place] [address] PCP - General Family Medicine 07/15/23 Kristin Gracia NP [address] [place] [address] Primary Care Provider Family Medicine 05/20/22 Prospect Manager Relationship Specialty Start Date End Date Maxim Lanza MD [address] [place] [address] PCP - General Family Medicine 07/15/23 Kristin Gracia NP [address] [place] [address] Primary Care Provider Family Medicine 05/20/22 Prospect Manager Relationship Specialty Start Date End Date Maxim Lanza MD [address] [place] [address] PCP - General Family Medicine 07/15/23 Kristin Gracia NP [address] [place] [address] Primary Care Provider Family Medicine 05/20/22 Prospect Manager Relationship Specialty Start Date End Date Maxim Lanza MD [address] [place] [address] PCP - General Family Medicine 07/15/23 Kristin Gracia NP [address] [place] [address] Primary Care Provider Family Medicine 05/20/22 Prospect Manager Relationship Specialty Start Date End Date Maxim Lanza MD [address] [place] [address] PCP - General Family Medicine 07/15/23 Kristin Gracia NP [address] [place] [address] Primary Care Provider Family Medicine 05/20/22 Goals [...] or prosecute any alcohol or drug abuse patient.[facility] HospitalIn the event this information is protected by the Federal Confidentiality of Alcohol and Drug Abuse Patient Records regulations: The Federal rules restrict any use of the information to criminally investigate or prosecute any alcohol or drug abuse patient.[facility] HospitalIn the event this information is protected by the Federal Confidentiality of Alcohol and Drug Abuse Patient Records regulations: The Federal rules restrict any use of the information to criminally investigate or prosecute any alcohol or drug abuse patient.[facility] HospitalIn the event this information is protected by the Federal Confidentiality of Alcohol and Drug Abuse Patient Records regulations: The Federal rules restrict any use of the information to criminally investigate or prosecute any alcohol or drug abuse patient.[facility] HospitalIn the event this information is protected by the Federal Confidentiality of Alcohol and Drug Abuse Patient Records regulations: The Federal rules restrict any use of the information to criminally investigate or prosecute any alcohol or drug abuse patient.[facility] HospitalIn the event this information is protected by the Federal Confidentiality of Alcohol and Drug Abuse Patient Records regulations: The Federal rules restrict any use of the information to criminally investigate or prosecute any alcohol or drug abuse patient.[facility] HospitalIn the event this information is protected by the Federal Confidentiality of Alcohol and Drug Abuse Patient Records regulations: The Federal rules restrict any use of the information to criminally investigate or prosecute any alcohol or drug abuse patient.[facility] HospitalIn the event this information is protected by the Federal Confidentiality of Alcohol and Drug Abuse Patient Records regulations: The Federal rules restrict any use of the information to criminally investigate or prosecute any alcohol or drug abuse patient.[facility] HospitalIn the event this information is protected by the Federal Confidentiality of Alcohol and Drug Abuse Patient Records regulations: The Federal rules restrict any use of the information to criminally investigate or prosecute any alcohol or drug abuse patient.[facility] HospitalIn the event this information is protected by the Federal Confidentiality of Alcohol and Drug Abuse Patient Records regulations: The Federal rules restrict any use of the information to criminally investigate or prosecute any alcohol or drug abuse patient.[facility] HospitalIn the event this information is protected by the Federal Confidentiality of Alcohol and Drug Abuse Patient Records regulations: The Federal rules restrict any use of the information to criminally investigate or prosecute any alcohol or drug abuse patient.[facility] HospitalIn the event this information is protected by the Federal Confidentiality of Alcohol and Drug Abuse Patient Records regulations: The Federal rules restrict any use of the information to criminally investigate or prosecute any alcohol or drug abuse patient.[facility] HospitalIn the event this information is protected by the Federal Confidentiality of Alcohol and Drug Abuse Patient Records regulations: The Federal rules restrict any use of the information to criminally investigate or prosecute any alcohol or drug abuse patient.[facility] HospitalIn the event this information is protected by the Federal Confidentiality of Alcohol and Drug Abuse Patient Records regulations: The Federal rules restrict any use of the information to criminally investigate or prosecute any alcohol or drug abuse patient.[facility] HospitalIn the event this information is protected by the Federal Confidentiality of Alcohol and Drug Abuse Patient Records regulations: The Federal rules restrict any use of the information to criminally investigate or prosecute any alcohol or drug abuse patient.[facility] HospitalIn the event this information is protected by the Federal Confidentiality of Alcohol and Drug Abuse Patient Records regulations: The Federal rules restrict any use of the information to criminally investigate or prosecute any alcohol or drug abuse patient.[facility] HospitalIn the event this information is protected by the Federal Confidentiality of Alcohol and Drug Abuse Patient Records regulations: The Federal rules restrict any use of the information to criminally investigate or prosecute any alcohol or drug abuse patient.[facility] HospitalIn the event this information is protected by the Federal Confidentiality of Alcohol and Drug Abuse Patient Records regulations: The Federal rules restrict any use of the information to criminally investigate or prosecute any alcohol or drug abuse patient.[facility] HospitalIn the event this information is protected by the Federal Confidentiality of Alcohol and Drug Abuse Patient Records regulations: The Federal rules restrict any use of the information to criminally investigate or prosecute any alcohol or drug abuse patient.[facility] HospitalIn the event this information is protected by the Federal Confidentiality of Alcohol and Drug Abuse Patient Records regulations: The Federal rules restrict any use of the information to criminally investigate or prosecute any alcohol or drug abuse patient.[facility] HospitalIn the event this information is protected by the Federal Confidentiality of Alcohol and Drug Abuse Patient Records regulations: The Federal rules restrict any use of the information to criminally investigate or prosecute any alcohol or drug abuse patient.[facility] HospitalIn the event this information is protected by the Federal Confidentiality of Alcohol and Drug Abuse Patient Records regulations: The Federal rules restrict any use of the information to criminally investigate or prosecute any alcohol or drug abuse patient.[facility] HospitalIn the event this information is protected by the Federal Confidentiality of Alcohol and Drug Abuse Patient Records regulations: The Federal rules restrict any use of the information to criminally investigate or prosecute any alcohol or drug abuse patient.[facility] HospitalIn the event this information is protected by the Federal Confidentiality of Alcohol and Drug Abuse Patient Records regulations: The Federal rules restrict any use of the information to criminally investigate or prosecute any alcohol or drug abuse patient.[facility] HospitalIn the event this information is protected by the Federal Confidentiality of Alcohol and Drug Abuse Patient Records regulations: The Federal rules restrict any use of the information to criminally investigate or prosecute any alcohol or drug abuse patient.[facility] HospitalIn the event this information is protected by the Federal Confidentiality of Alcohol and Drug Abuse Patient Records regulations: The Federal rules restrict any use of the information to criminally investigate or prosecute any alcohol or drug abuse patient.[facility] HospitalIn the event this information is protected by the Federal Confidentiality of Alcohol and Drug Abuse Patient Records regulations: The Federal rules restrict any use of the information to criminally investigate or prosecute any alcohol or drug abuse patient.[facility] HospitalIn the event this information is protected by the Federal Confidentiality of Alcohol and Drug Abuse Patient Records regulations: The Federal rules restrict any use of the information to criminally investigate or prosecute any alcohol or drug abuse patient.[facility] HospitalIn the event this information is protected by the Federal Confidentiality of Alcohol and Drug Abuse Patient Records regulations: The Federal rules restrict any use of the information to criminally investigate or prosecute any alcohol or drug abuse patient.[facility] Reason for Visit (unrecogniz ed section and content) Reason Comments IV Medication Administration [facility] Specialty Diagnoses / Procedures Referred By Atilio t Referred To Contact Diagnoses Multiple sclerosis (HCC) G35 (ICD-10-CM) - Multiple sclerosis (HCC) Procedures INJECTION, OCRELIZUMAB, 1 MG J2350 - INJECTION, OCRELIZUMAB, 1 MG Sarthak Escobar MD, PhD [address] [place] [address] [facility] [address] [place] [address] Referral ID Status Reason Start Date Expiration Date V isits Requested Visits Authorized [id number] Pending Review 12/06/2020 03/22/2023 4 4 Reason Comments Established Patient Follow-Up Reason Comments Infusion [facility] Referral ID Status Reason Start Date Expiration Date V isits Requested Visits Authorized [id number] Pending Review 12/06/2020 03/01/2022 2 2 Specialty Diagnoses / Procedures Referred By Contac t Referred To Contact [facility] Diagnoses Multiple sclerosis, relapsing-remitting (HCC) Procedures MRI BRAIN WO/W IVCON MRI BRAIN BRAIN STEM W/O W/CONTRAST MATERIAL Jessica Clarke PA-C [address] [place] [address] Mr Imaging Referral ID Status Reason Start Date Expiration Date V isits Requested Visits Authorized [id number] Closed Auto-Generate d Referral 09/15/2021 11/25/2021 1 1 Reason Comments Established Patient Follow-Up Reason Comments [facility] Specialty Diagnoses / Procedures Referred By Contac t Referred To Contact [facility] Diagnoses Multiple sclerosis, relapsing-remitting (HCC) Procedures CONSULT TO MANAGER SUPPLY OCCUPATIONAL THERAPY EVAL HIGH COMPLEX 60 MINS Jessica Clarke PA-C [address] [place] [address] [facility] [place] [address] Referral ID Status Reason Start Date Expiration Date V isits Requested Visits Authorized [id number] Closed Auto-Generate d Referral 09/15/2021 05/19/2022 1 1 Reason Comments Appointment Called pt LVM to see about setting up pt and psycology. Reason Comments Established Patient Follow-Up Reason Comments Patient Update Reason Comments URI Reason Comments Consult Cervical pain Specialty Diagnoses / Procedures Referred By Contac t Referred To Contact [facility] Diagnoses Cervical stenosis of spine Procedures [facility]SULT TO [facility] OFFICE/OUTPATIENT NEW HIGH MDM 60 MINUTES Jessica Clarke PA-C [address] [place] [address] Referral ID Status Reason Start Date Expiration Date V isits Requested Visits Authorized [id number] Closed PCP Requested Referral 06/13/2023 06/12/2024 1 1 Reason Comments Orders Order for MRI needed for Brain and Cervical Reason Comments Patient Question Reason Comments Established Patient Reason Comments Orders Reason Comments Post-op PO Lt shoulder scope prob RCR TSCNCO 02/10/24 Specialty Diagnoses / Procedures Referred By Atilio t Referred To Contact Physical Therapy Diagnoses S/P arthroscopy of left shoulder Procedures [place] OFFICE/OUTPATIENT NEW HIGH MDM 60 MINUTES Eliazar Brooks, DO [address] [place] [address] Aria Agrawal PT Referral ID Status Reason Start Date Expiration Date Visits Requested Visits Authorized [id number] Pending Review Specialty Services Required 02/25/2024 08/23/2024 [...] BE BASED ON THE PRIMARY CLINICAL RECORDS. [employer] provides no warranty or guarantee of the accuracy or completeness of information in this document.
[2024-08-22 22:53] LABS: Glucometer 105 mg/dL (74-106)
--- NOTE | 2024-08-22 22:54 | ED.FEMALEGU1 ---
HPI - Female Genitourinary General Chief complaint: Urogenital-Female Stated complaint: poss kidney infection Time Seen by Provider: 08/22/24 22:42 Source: patient Mode of arrival: Wheelchair History of Present Illness HPI Narrative: past history of MS. States she is able to ambulate with a walker. Arrives in wheelchair. Complains of urinary frequency and dysuria for past 2 weeks. States she was vomiting last PM. No emesis today but also no appetite. No fever or chills. Related Data Home Medications ?Medication ?Instructions ?Recorded ?Confirmed aripiprazole 10 mg tablet 10 mg PO DAILY 08/23/24 08/23/24 buspirone 5 mg tablet 5 mg PO BID 08/23/24 08/23/24 buspirone 7.5 mg tablet 7.5 mg PO Q8H PRN anxiety 08/23/24 08/23/24 cetirizine 10 mg tablet 10 mg PO DAILY 08/23/24 08/23/24 escitalopram oxalate 10 mg tablet 10 mg PO DAILY 08/23/24 08/23/24 mirtazapine 15 mg tablet 15 mg PO .hs 08/23/24 08/23/24 nystatin 100,000 unit/gram topical 1 applic topical DAILY 08/23/24 08/23/24 powder ([facility]) Allergies Allergy/AdvReac Type Severity Reaction Status Date / Time No Known Drug Allergies Allergy Verified 08/22/24 22:39 Review of Systems ROS Status of ROS 10 or more systems reviewed and unremarkable except as noted in history and below [facility] Medical History (Updated 08/23/24 @ 12:06 by Laurel Hamlin DO) Bipolar 1 disorder ?F31.9 - Bipolar disorder, unspecified (ICD-10) Pressure injury of sacral region, stage 2 ?L89.152 - Pressure ulcer of sacral region, stage 2 (ICD-10) Obesity ?E66.9 - Obesity, unspecified (ICD-10) Multiple sclerosis ?G35 - Multiple sclerosis (ICD-10) Social History Highest level of school completed/degree received: high school graduate Little interest or pleasure in doing things: several days Feeling down, depressed, or hopeless: several days Exam Constitutional Vital Signs, click to edit/add: Last Vital Signs Temp 98.5 F 08/23/24 15:30 Pulse 86 08/23/24 15:30 Resp 18 08/23/24 15:30 BP 122/79 08/23/24 15:30 Pulse Ox 94 L 08/23/24 15:30 O2 Del Method Room Air 08/23/24 15:30 Common normals: no apparent distress, average body habitus, oriented x3, no limitations, alert and well nourished HENVT Common normals: normocephalic and head/scalp atraumatic Eye Common normals: PERRL, EOMs intact bilaterally and conjunctivae normal Respiratory Common normals: normal respiratory effort, no retractions, no use of accessory muscles and clear to auscultation bilaterally Cardio Common normals: regular rate, regular rhythm, S1 normal heart sound and S2 normal heart sound GI Common normals: Normal to inspection, nondistended, normoactive bowel sounds present and soft to palpation Other: mild left CVA tenderness Extremity Common normals: normal to inspection and full ROM Neuro Common normals: oriented x3, moves all extremities and no focal motor deficits Psych Appearance: grossly normal Course Vital Signs Vital signs: Vital Signs Temperature 98.8 F 08/22/24 22:29 Pulse Rate 105 H 08/22/24 22:29 Respiratory Rate 18 08/22/24 22:29 Blood Pressure 113/83 08/22/24 22:29 Pulse Oximetry 98 08/22/24 22:29 Oxygen Delivery Method Room Air 08/22/24 22:29 Temperature 98.5 F 08/23/24 15:30 Pulse Rate 86 08/23/24 15:30 Respiratory Rate 18 08/23/24 15:30 Blood Pressure 122/79 08/23/24 15:30 Pulse Oximetry 94 L 08/23/24 15:30 Oxygen Delivery Method Room Air 08/23/24 15:30 MDM - Female Genitourinary MDM Narrative Medical decision making narrative: patient has MS. States she receives infusion therapy e1rpulty and is due again in November. Ambulates with a walker. Arrives to the ER in wheelchair. Ill with urinary frequency and dysuria. Does have excoriation on her back side . Found to have UTI. Emesis last PM but none today but nauseated. Given zofran for nausea and it help some. Decreased intake today. Hydrated for tachycardia. Urine cx pending and Rocephin ordered. Patient is weak at this time. Discussed observation admission with the hospitalist and patient accepted Lab Data Labs: Lab Results 08/22/24 08/22/24 08/22/24 Range/Units 22:45 22:52 23:05 WBC 11.8 H (4.0-11.0) 10^3/uL RBC 4.98 (4.20-5.40) 10^6/uL Hgb 13.8 (12.0-16.0) g/dL Hct 43.6 (36.0-48.0) % MCV 87.6 (81.0-99.0) fL MCH 27.7 (26.7-34.0) pg MCHC 31.7 (29.9-35.2) g/dL RDW 14.6 (11.0-15.0) % Plt Count 211 (150-450) 10^3/uL MPV 11.7 (9.5-13.5) fL Seg Neuts % (Manual) 74.0 (43.0-75.0) Lymphocytes % (Manual) 8.0 L (20.5-60.0) % Monocytes % (Manual) 18.0 H (1.7-12.0) % Eosinophils % (Manual) 0.0 L (0.9-7.0) % Basophils % (Manual) 0.0 L (0.2-2.0) % Neutrophils # (Manual) 8.73 H (1.4-6.5) 10^3/uL Band Neutrophils # 0.9 H (0.0-0.3) 10^3/uL Lymphocytes # (Manual) 0.94 L (1.20-3.80) 10^3/uL Monocytes # (Manual) 2.12 H (0.30-0.80) 10^3/uL Eosinophils # (Manual) 0.00 (0.00-0.70) 10^3/uL Basophils # (Manual) 0.00 (0.00-0.10) 10^3/uL Sodium 139 (136-145) mmol/L Potassium 3.5 (3.5-5.1) mmol/L Chloride 103 (98-107) mmol/L Carbon Dioxide 31.3 (21.0-32.0) mmol/L Anion Gap 8.2 BUN 13.0 (7.0-18.0) mg/dL Creatinine 1.33 H (0.55-1.02) mg/dL Est GFR ( Amer) 50 L (>=60 mL/min/1.73m^2) Est GFR (Non-Af Amer) 41 L (>=60 mL/min/1.73m^2) BUN/Creatinine Ratio 9.8 Glucose 100 (74-106) mg/dL Calcium 8.9 (8.5-10.1) mg/dL Urine Color Yellow (YELLOW) Urine Clarity Slightly cloudy A (CLEAR) Urine pH 6.0 (5.0-9.0) Ur Specific [place] 1.015 (1.005-1.025) Urine Protein 30 A (NEG/TRACE) mg/dL Urine Glucose (UA) Negative (NEGATIVE) mg/dL Urine Ketones Trace A (NEGATIVE) mg/dL Urine Occult Blood Trace-i (NEGATIVE) Urine Nitrite Negative (NEGATIVE) Urine Bilirubin Negative (NEGATIVE) Urine Urobilinogen 1.0 (0.2-1.0) EU/dL Ur Leukocyte Esterase Small A (NEGATIVE) Urine RBC None seen (0-2) #/HPF Urine WBC >100 A (NONE SEEN) #/HPF Ur Squamous Epith Cells Few A (NONE/RARE) #/LPF Urine Crystals None seen (None Seen) #/HPF Urine Bacteria Moderate A (NONE SEEN) #/HPF Urine Casts None seen (NONE SEEN) #/LPF Urine Mucus Small A (NONE SEEN) Ur Culture Indicated? Yes-[facility] [place] POC Glucose 105 (74-106) mg/dL Discharge Plan Discharge Chief Complaint: Urogenital-Female Clinical Impression: Generalized weakness Urinary tract infection Qualifiers: Urinary tract infection type: acute cystitis Hematuria presence: without hematuria Qualified Code(s): N30.00 - Acute cystitis without hematuria Patient Disposition: Admitted as Observation Condition: Good Discharge Date/Time: 08/23/24 01:42
[2024-08-22 22:59] LABS: Bilirubin Urine NEGATIVE (NEGATIVE); Blood Urine TRACE-I (NEGATIVE); Color Urine YELLOW (YELLOW); Glucose Urine UA NEGATIVE (NEGATIVE); Ketones Urine TRACE mg/dL (NEGATIVE); Leukocyte Esterase Urine SMALL (NEGATIVE); Nitrite Urine NEGATIVE (NEGATIVE); Protein Urine 30 mg/dL (NEG/TRACE); Specific Gravity Urine 1.015 (1.005-1.025)
[2024-08-22 23:01] LABS: Clarity Urine SLIGHTLY CLOUDY (CLEAR); Urine Microscopic Indicated YES
[2024-08-22 23:06] LABS: Bacteria Urine MODERATE #/HPF (NONE SEEN); Cast Seen? NONE SEEN #/LPF (NONE SEEN); Crystals Seen? None Seen #/HPF (None Seen); Mucus Urine SMALL (NONE SEEN); RBC Urine NONE SEEN #/HPF (0-2); Squamous Epithelial Cell Urine FEW #/LPF (NONE/RARE); Urine Culture Indicated YES-FRMC; WBC Urine >100 #/HPF (NONE SEEN)
[2024-08-22 23:15] LABS: Hematocrit 43.6 % (36.0-48.0); Hemoglobin 13.8 g/dL (12.0-16.0); Mean Corpuscular HGB Conc 31.7 g/dL (29.9-35.2); Mean Corpuscular Hemoglobin 27.7 pg (26.7-34.0); Mean Corpuscular Volume 87.6 fL (81.0-99.0); Mean Platelet Volume 11.7 fL (9.5-13.5); Platelet Count 211 10^3/uL (150-450); Red Blood Count 4.98 10^6/uL (4.20-5.40); Red Cell Distribution Width 14.6 % (11.0-15.0); White Blood Count 11.8 10^3/uL (4.0-11.0)
[2024-08-22 23:25] LABS: Anion Gap 8.2; BUN Creatinine Ratio 9.8; Calcium 8.9 mg/dL (8.5-10.1); Carbon Dioxide 31.3 mmol/L (21.0-32.0); Chloride 103 mmol/L (98-107); Estimated GFR (African America 50 (>=60 mL/min/1.73m^2); Estimated GFR (Non-African Ame 41 (>=60 mL/min/1.73m^2); Glucose 100 mg/dL (74-106); Potassium 3.5 mmol/L (3.5-5.1); Sodium 139 mmol/L (136-145)
[2024-08-22] MEDS: 0.9 % SODIUM CHLORIDE 1,000 ML 999 ML IV (23:29)
[2024-08-22 23:31] LABS: Band Neutrophils Absolute 0.9 10^3/uL (0.0-0.3); Lymphocytes Absolute Manual 0.94 10^3/uL (1.20-3.80); Monocytes Absolute Manual 2.12 10^3/uL (0.30-0.80); Segmented Neut Absolute Manual 8.73 10^3/uL (1.4-6.5)
[2024-08-22] MEDS: ONDANSETRON PF 4 MG/2 ML VIAL IV (23:44)
[2024-08-23] MEDS: CEFTRIAXONE 1,000 MG in 0.9 % SODIUM CHLORIDE 50 ML 100 MG IV (00:26)
[2024-08-23 00:55] VITALS: BP 144/78; PULSE 67; TEMP 37.1; O2SAT 96
--- OUTSIDE RECORDS SUMMARY | 2024-08-23 01:50 | XMS_ITS | CCD ---
Author Organization [facility] Inform ion Partnership [facility] Care Team Providers Care Hearings Reporter Name Role Phone August PIPE BENDER Unavailable Unavailable August PIPE BENDER Unavailable Unavailable August PIPE BENDER Unavailable Unavailable Jaleesa Lara Unavailable [facility] Primary Care Provider MD Tyshawn Palencia Attending Provider [phone] Valdez Acosta MD Primary Care Provider [phone] Tyshawn Palencia Unavailable Valdez Acosta MD Primary Care Provider Valdez Acosta MD Primary Care Provider [phone] AICHHOLZ, PIPE BENDER KRISTIN Admitting Unavailable AICHHOLZ, PIPE BENDER KRISTIN Attending Unavailable AICHHOLZ, PIPE BENDER KRISTIN Primary Care Unavailable TAMLYN ., YAHAIRA Consulting Unavailable TAMLYN ., YAHAIRA Admitting Unavailable TAMLYN ., YAHAIRA Attending Unavailable AICHHOLZ, PIPE BENDER KRISTIN Primary Care Unavailable TAMLYN ., YAHAIRA Consulting Unavailable THEA LYNN Consulting Unavailable YASH CALLAHAN Consulting Unavailable AICHHOLZ, PIPE BENDER KRISTIN Admitting Unavailable AICHHOLZ, PIPE BENDER KRISTIN Attending Unavailable AICHHOLZ, PIPE BENDER KRISTIN Primary Care Unavailable AICHHOLZ, PIPE BENDER KRISTIN Consulting Unavailable AICHHOLZ, PIPE BENDER KRISTIN Admitting Unavailable AICHHOLZ, PIPE BENDER KRISTIN Attending Unavailable AICHHOLZ, PIPE BENDER KRISTIN Primary Care Unavailable AICHHOLZ, PIPE BENDER KRISTIN Consulting Unavailable DR TULIO BULL Admitting Unavailable MISC, DR ANTUNEZ Attending Unavailable AICHHOLZ, PIPE BENDER KRISTIN Primary Care Unavailable MISC, DR ANTUNEZ Consulting Unavailable Aichholz TAX SENIOR ASSOCIATE, Kristin Unavailable Maxim Lanza MD Primary Care [...] Care Unavailable SARTHAK ESCOBAR Referring Unavailable [facility] Primary Care Unavailable , AUGUST L Primary Care Physician Unavailab le DONIEAugust Primary Care Unavailable Brooks, Eliazar T Referring Unavailable Brooks, Eliazar T Attending Unavailable Brooks, Eliazar T Admitting Unavailable NONE, XXXX Primary Care Physician Unavailab Keli Montanez Unavailable Unavailable Brooks, Eliazar T Admitting Unavailable Brooks, Eliazar T Attending Unavailable Brooks, Eliazar T Referring Unavailable Brooks, Eliazar T Admitting Unavailable Brooks, Eliazar T Attending Unavailable Brooks, Eliazar T Referring Unavailable August Primary Care Unavailable Aichholz TAX SENIOR ASSOCIATE, Kristin Unavailable Myla BENITEZ, Maxim Primary Care Provider Sarah FIGUEROA, Sherrie Unavailable [phone] John MANAGER SHIFT.PIPE BENDER, Elizabeth Barney Unavailable SHERRIE BOONE Attending Unavailabl [...] Allergies Allergy to substance [facility] Work Phone: (2 sources) Acetaminophen / HYDROcodone; Translations: [Vicodin] Drug Allergy [facility] Repository (2 sources) Penicillins; Translations: [penicillins] Propensity to adverse reactions (disorder) [facility] Repository Medications Current Medications Medication Drug [...] hours as needed for shoulder surgical pain., [employer] #[facility], 167.7, cm, 02/05/24 11:09:00 EDT, Height/Length Dosing, 131.3, kg, 02/05/24 11:09:00 EDT, Weight Dosing Start Date: 02/06/24 Status: Ordered Start: 02-06-2024 End: 04-15-2024 Percocet 5-325 MG tablet See Instructions, 40 tab(s), Refill(s) 0, Take one to two oral every 4 hours as needed for shoulder surgical pain., [employer] [facility]72, 167.7, cm, 02/05/24 11:09:00 EDT, Height/Length Dosing, 131.3, kg, 02/05/24 11:09:00 EDT, Weight Dosing 02/06/2024 04/15/2024 Discontinued (Therapy completed) [id number] 200 actuat albuterol 0.09 mg/actuat metered dose [...] oral solution (1 source) alpha-Adrenergic Agonist, Uncompetitive C-lhaumq-O-aspartat e Receptor Antagonist, Sigma-1 Agonist Start: 04-15-2024 [...] 90 tablet 1 06/05/2023 Active Estrogens, Conjugated (DETENTION) / medroxyPROGESTERone (1 source) Progestin, Estrogen Start: [...] Antifungal Start: 03-05-2024 End: 03-20-2024 nystatin (Mycostatin) 854049 UNIT/GM powder Indications: Candidiasis of skin Apply topically 2 (two) times a day for 15 days Apply to affected areas 60 g 1 03/05/2024 03/20/2024 Active End: 03-05-2024 nystatin (Mycostatin) 987143 UNIT/GM powder Apply topically 2 (two) times [...] Start: 06-14-2018 End: 06-14-2018 TRAZODONE 50 mg [facility] [place] - 06/14/2018 Provider: Start: 05-30-2017 End: 05-30-2017 TRAZODONE 50 mg [facility] 018 - 05/30/2017 Provider: vitamin B12 (12 [...] on above: Take 1,000 mcg by mo [facility] once daily. Vitamin D (2 sources) Start: [...] MM TOMOSYNTHESIS SCREENING B Ion 06-30-2024 [place] [address] Mammography Report Signed Patient: YAMILKA VASQUEZ MR#: [id number] : 1970 Acct:[id number] Age/Sex: 54 / F ADM Date: 06/30/24 Loc: MAMMO Attending Dr: Kristin Gracia NP Ordering Physician: Kristin Gracia NP Results: Date of Service: 06/30/24 Follow Up: Procedure(s): MM tomosynthesis screening BI Accession Number(s): [id number] cc: Kristin Gracia NP Patient Name: YAMILKA VASQUEZ MR#: [id number] : 1970 Exam Date: 06/30/2024 Ordering Doctor: [...] throat/lung cancer at age 56. LOCATION: The [facility] BREAST COMPOSITION: There are scattered areas of [...] Signed By: 06/30/24 1133 DD/ 1132 TD/TT: Clinical Science Consultant: [facility] Radiology, Radiologist, - 06/30/2024 [place] [address] Mammography Report Signed Patient: YAMILKA VASQUEZ MR#: [id number] : 1970 Acct:[id number] Age/Sex: 54 / F ADM Date: 06/30/24 Loc: MAMMO Attending Dr: Kristin Gracia NP Ordering Physician: Kristin Gracia NP Results: Date of Service: 06/30/24 Follow Up: Procedure(s): MM tomosynthesis screening BI Accession Number(s): [id number] cc: Kristin Gracia NP Patient Name: YAMILKA VASQUEZ MR#: [id number] : 1970 Exam Date: 06/30/2024 Ordering Doctor: [...] throat/lung cancer at age 56. LOCATION: The [facility] BREAST COMPOSITION: There are scattered areas of [...] Signed By: 06/30/24 1133 DD/ 1132 TD/TT: Clinical Science Consultant: [facility] Rad[facility] Study observation (narrative) [facility] MM TOMOSYNTHESIS SCREENING B IOrdered By: Radiologist Radiology on 06-30-2024 [employer] Work Phone: No Panel Informationon 04-27 Alona [...] to verify the correct patient, procedure, equipment, phlebotomy support tech and site/side marked as required. Patient was prepped and draped in the usual sterile fashion. [facility] XR Shoulder - left 2 Viewson 02-25-2024 Imaging Result: Two views, AP and Lateral, in the office taken today saved to the permanent record shows post surgical change with acromioplasty/partial distal clavulectomy with appropriate coplaning. No acute fracture, dislocation, tumor or infection seen. [facility] Radiology Study observation (narrative) [facility] Main OR Intraoperative Recor don 02-11-2024 Main OR Intraoperative Record Main OR Intraoperative Record IntraOp Document Type FT Summary Primary Physician: Eliazar Brooks DO Finalized Date/Time: 02/11/24 14:09:06 Pt. Name: YAMILKA VASQUEZ/Aracely: 1970 Female Med Rec #: [id number] Physician: Eliazar Brooks DO Financial #: [id number] Pt. Type: A Room/Bed: Admit/Disch: 02/10/24 11:39:41 [...] 2 Entry 3 Case Attendee Cynthia BROWN, SKIVER COUNTER, Eliazar Porter DO WAYS OPERATOR, Marlyn Campuzano Role Performed SKIVER COUNTER Surgeon - Primary Scrub - Primary Time [...] Attendee Adams Pak Laura C Role Performed Chief Nuclear Medicine Technologist - Primary Scrub - Primary Time In 02/10/24 14:21:00 02/10/24 14:21:00 Time Out 02/10/24 15:35:00 02/10/24 15:35:00 Procedure SHOULDER ARTHROSCOPY W/ SHOULDER ARTHROSCOPY W/ POSSIBLE REPAIR(Left) POSSIBLE REPAIR(Left) Comments Last Modified By: Adams Pak Terry T 02/10/24 15:49:04 02/10/24 15:49:04 General Comments: LATESHA HENRIQUEZ - MARCELLE STUDENT HERE FOR CASE. Aurora PKA RN. Perioperative Protocols FT Pre-Care Text: Implements [...] and tissue Entry 1 Skin Integrity Intact, Ronks, Warm, & Skin Abnormality No Dry Outcomes Met? Yes Last Modified By: Adams Pak 02/10/24 15:02:50 Post-Care Text: The patient is free from signs and symptoms of injury caused by extraneous objects Patient Positioning FT Pre-Care Text: Identifies physical alterations that require additional precautions for procedure-specific positioning, verifies presence of prosthetics (more content not included)... Normal [facility] Operative Reporton Operative Report Operative Report SURGERY DATE: 02/10/2024 SHALLOT CLEANER: Marlyn Kate C.F.A. PREOPERATIVE DIAGNOSIS: Left shoulder [...] a lateral portal incision utilizing a 90-degree [place] wand as well as 5.0 bone cutter, [...] PATIENT CONDITION: Satisfactory Aguila Santamaria Dictated: 02/10/2024 [id number] Transcribed: 02/10/2024 [facility] Comment on above: Result Comment: Elec [...] scheduled appointment Call for any problems. Where: [address] [place], [place] [id number]- Business (1) Medications What How Much When [...] needed for shoulder surgical pain. Pickup at [facility] Unchanged ergocalciferol (Vitamin D) 1,200 International [...] bedtime) as needed for Sleep Pharmacy Information [facility]: [address] [place], [place] [id number] [phone] Test Results No qualifying data available. Allergies No Known Allergies Problems Ongoing - Any problem that you are currently receiving treatment for. Menopause Mini stroke MS - Multiple sclerosis Smoker Education Materials [place], [place] [facility] AFTER YOUR SHOULDER ARTHROSCOPY [...] have any (more content not included)... Normal [facility] Comment on above: Result Comment: Elec tronically Signed By: Aime ROSA, Brigida Barney\.br\Date and Time Signed: 02/10/24 15:46 EDT Main OR PACU I Recordon 01-19 Main OR PACU I Record Main OR PACU I Rec ord PACU Phase I Document Type FT Summary Primary Physician: Eliazar Brooks DO Finalized Date/Time: 02/10/24 16:23:54 Pt. Name: YAMILKA VASQUEZ./Sex: 1970 Female Med Rec #: [id number] Physician: Eliazar Brooks DO Financial #: [id number] Pt. Type: A Room/Bed: Admit/Disch: 02/10/24 11:39:41 [...] Signed By: Meera Rose RN 02/10/24 16:23 [facility] Main OR PACU II Recordon Main OR PACU II Record Main OR PACU II Record PACU Phase II Document Type FT Summary Primary Physician: Eliazar Brooks DO Finalized Date/Time: 02/10/24 18:07:34 Pt. Name: YAMILKA VASQUEZ/Sex: 1970 Female Med Rec #: [id number] Physician: Eliazar Brooks DO Financial #: [id number] Pt. Type: A Room/Bed: Admit/Disch: 02/10/24 11:39:41 [...] By: Sherron Deleon RN 02/10/24 18:07 Normal [facility] Main OR Preoperative Recordo n 02-10-2024 Main OR Preoperative Record Main OR Preoperative Record PreOp Document Type FT Summary Primary Physician: Eliazar Brooks DO Finalized Date/Time: 02/10/24 15:51:36 Pt. Name: YAMILKA VASQUEZ/Sex: 1970 Female Med Rec #: [id number] Physician: Eliazar Brooks DO Financial #: [id number] Pt. Type: A Room/Bed: AS01/18 Admit/Disch: 02/10/24 [...] 02/10/24 14:59 Adams Pak 02/10/24 15:51 Normal [facility] Proceduralon 02-10-2024 Procedural Procedural Patient: YAMILKA [...] Using maximal sterile barrier technique per current [facility] guidelines including hand hygeine, Guidance (Ultrasound used [...] Cynthia CRNA under Dr Enriquez's supervision.. Normal [facility] Inpatient Patient Summaryon 02-06-2024 Inpatient Patient Summary Inpatient Patient Summary [facility] [address] [place], [place] [address] [facility] Clinical Discharge Instructions PERSON INFORMATION Name: YAMILKA VASQUEZ PHYSICIANS Admitting Physician: Eliazar Brooks DO Attending Physician: Eliazar Brooks DO PCP: FRANCES AGUILERA CNP Discharge Diagnosis: Impingement of left shoulder Comment: PATIENT EDUCATION INFORMATION Instructions: Zbigniew - After Your Shoulder Arthroscopy (Revised 06/17/14) (CUSTOM) Medication Leaflets: Follow up: With: Address: When: Eliazar Brooks [address] [place] [address] [employer] (1) Comments: Keep scheduled appointment Type Location Start [facility] Surgical Services 02/10/2024 2:30 PM [...] Mouth 2 times a day. Comment: Normal [facility] Outpatient Surgery Discharge Instructionon 02-06-2024 Outpatient Surgery Discharge Instruction Outpatient Surgery Discharge Instruction [place] [id number] Patient Discharge Instructions PERSON INFORMATION Name: YAMILKA [...] Follow up: With: Address: When: Eliazar Brooks [address] [place] [address] Business (1) Comments: Keep scheduled appointment Type Location Start [facility] Surgical Services 02/10/2024 2:30 PM [...] to serve you. Thank you for choosing [facility] HERE ARE THE MEDICATION CHANGES THAT OCCURRED [...] times a day. PATIENT EDUCATION INFORMATION Instructions: [place], [place] [facility] AFTER YOUR SHOULDER ARTHROSCOPY [...] medication as (more content not included)... Normal [facility] XR Chest 2 Viewson XR Chest [...] mGy = . DAP = . Normal [facility] BMPon 02-05-2024 Anion gap [Moles/Vol] 11 mmol/L Normal 6-16 [facility] Comment on above: Performed By: #### 2 [id number] #### [facility] [address] [place] [address] Calcium [Mass/Vol] 9.4 mg/dL Normal 8.9-11.1 [facility] Comment on above: Performed By: #### 2 477372 #### [facility] [address] [place] [address] Chloride [Moles/Vol] 104 mmol/L Normal 101-111 [facility] Comment on above: Performed By: #### 2 953549 #### [facility] [address] [place] [address] CO2 [Moles/Vol] 31 mmol/L Normal 21-31 [facility] Comment on above: Performed By: #### 2 500217 #### [facility] [address] [place] [address] Creatinine [Mass/Vol] 0.9 mg/dL Normal 0.5-1.3 [facility] Comment on above: Performed By: #### 2 172381 #### [facility] [address] [place] [address] Glucose [Mass/Vol] 93 mg/dL Normal 55-199 [facility] Comment on above: Performed By: #### 2 585218 #### [facility] [address] [place] [address] Potassium [Moles/Vol] 4.1 mmol/L Normal 3.5-5.3 [facility] Comment on above: Performed By: #### 2 782937 #### [facility] [address] [place] [address] Sodium [Moles/Vol] 142 mmol/L Normal 135-145 [facility] Comment on above: Performed By: #### 2 933199 #### [facility] [address] [place] [address] Urea nitrogen [Mass/Vol] 11 mg/dL Normal 5-21 [facility] Comment on above: Performed By: #### 2 536808 #### [facility] [address] [place] [address] Urea nitrogen/Creatinine [Mass ratio] 12 No Units Normal 10-20 [facility] Comment on above: Performed By: #### 2 356187 #### [facility] [address] [place] [address] CBC w/ Auto Diffon 4 Basophils/100 WBC (Bld) 0.6 % Normal 0.0-2.0 [facility] Comment on above: Performed By: #### 2 914709 #### [facility] [address] [place] [address] Basophils/Leukocytes Auto (Bld) [Pure # fraction] 0.0 E9/L Normal 0.0-0.2 [facility] Comment on above: Performed By: #### 2 715699 #### [facility] [address] [place] [address] Eosinophils (Bld) [#/Vol] 0.1 E9/L Normal 0.0-0.5 [facility] Comment on above: Performed By: #### 2 998112 #### [facility] [address] [place] [address] Eosinophils/100 WBC (Bld) 1.2 % Normal 0.0-8.0 [facility] Comment on above: Performed By: #### 2 027202 #### [facility] [address] [place] [address] Erythrocyte distribution width (RBC) [Ratio] 17.5 % High 10.9-14.2 [facility] Comment on above: Performed By: #### 2 900120 #### [facility] [address] [place] [address] Hematocrit (Bld) [Volume fraction] 37.9 % Normal 34.0-46.0 [facility] Comment on above: Performed By: #### 2 965861 #### [facility] [address] [place] [address] Hemoglobin (Bld) [Mass/Vol] 12.6 g/dL Normal 12.0-16.0 [facility] Comment on above: Performed By: #### 2 345715 #### [facility] [address] [place] [address] Lymphocytes (Bld) [#/Vol] 0.8 E9/L Low 1.0-4.0 [facility] Comment on above: Performed By: #### 2 281234 #### [facility] [address] [place] [address] Lymphocytes/100 WBC (Bld) 11.1 % Low 14.0-50.0 [facility] Comment on above: Performed By: #### 2 847471 #### [facility] [address] [place] [address] MCH (RBC) [Entitic mass] 27.8 pg Normal 27.0-34.0 [facility] Comment on above: Performed By: #### 2 091970 #### [facility] [address] [place] [address] MCHC (RBC) [Mass/Vol] 33.2 g/dL Normal 31.4-36.0 [facility] Comment on above: Performed By: #### 2 183797 #### [facility] [address] [place] [address] MCV (RBC) [Entitic vol] 83.9 fL Normal 80.0-100.0 [facility] Comment on above: Performed By: #### 2 347668 #### [facility] [address] [place] [address] Monocytes (Bld) [#/Vol] 0.8 E9/L Normal 0.2-1.0 [facility] Comment on above: Performed By: #### 2 582192 #### [facility] [address] [place] [address] Neutrophils (Bld) [#/Vol] 5.4 E9/L Normal 2.0-7.5 [facility] Comment on above: Performed By: #### 2 795253 #### [facility] [address] [place] [address] Neutrophils/100 WBC (Bld) 76.4 % High 36.0-75.0 [facility] Comment on above: Performed By: #### 2 322782 #### [facility] [address] [place] [address] Platelet 195.0 E9/L Normal 150.0-500.0 [facility] Comment on above: Performed By: #### 2 270714 #### [facility] [address] [place] [address] Platelet mean volume (Bld) [Entitic vol] 10.4 fL Normal 6.4-10.8 [facility] Comment on above: Performed By: #### 2 535419 #### [facility] [address] [place] [address] RBC (Bld) [#/Vol] 4.5 E12/L Normal 4.3-5.9 [facility] Comment on above: Performed By: #### 2 273642 #### [facility] [address] [place] [address] WBC corrected for nucl RBC Auto (Bld) [#/Vol] 7.1 E9/L Normal 4.0-11.0 [facility] Comment on above: Performed By: #### 2 979801 #### [facility] [address] [place] [address] eGFRon 02-05-2024 eGFR 75 mL/min/1.73 m2 Normal >=59 [facility] Comment on above: Order Comment: Order added by Discern Expert. Performed By: #### 1 [id number] ####[facility] [address] [place] [address] TBH UA (CLEAN/CATCH) MICROSC OPIC IF INDICATEon [...] CNPNon 12-19-2023 JASMIN Telephone (MARK) YAMILKA VASQUEZ ([id number]) 1970 F Date Time Provider Department 12/19/23 NURSE [facility]GLE [facility] During your visit today, we [...] by TEAGAN SHE ROSE on 12/19/23 Normal [facility] MR SHOULDER LEFT WO IV CONTR Maikel [...] 7-8 years ago So 08-21-2023 [facility] Tele[facility] YAMILKA VASQUEZ ([id number]) 1970 F Date Time Provider Department 08/21/23 [facility] During your visit today, we recorded the following information about you: Renuka Ellison 08/21/2023 4:19 PM Signed Kriss Call Name of caller : Yamilka Vasquez Relationship to patient: Self Return call phone number : [phone] Reason for call : Other : Brief [...] of spine [M48.02] Order(s):CONSULT TO SPINE SURGERY [[id number]] Order #: [id number]: 1 FUTURE Prescriptions as of 08/22/2023 - [...] Encounter Status:Closed by ELIZABETH VICTORIA on 08/22/23 [facility]AM[facility]ASQUE[facility] ([id number]) 1970 F Date Time Provider Department 07/15/23 JESSICA CLARKE During your visit today, we recorded the following information about you: Anjelica Alba 07/15/2023 3:20 PM Signed [place] Call Name of caller : Steffanie Relationship to patient: Caregiver Return call phone number : appointments Reason for call : Order for MRI needed for Brain and Cervical Jessica Clarke PA-C 07/16/2023 1:10 PM Signed She only needs brain MRI since c-spine MRI was completed locally outside [facility] in April. Orders already placed Elizabeth Victoria RN 07/16/2023 2:21 PM Signed Called patient, no answer. Message left to return call to office when able. MOE Spencer Megan A, RN 07/17/2023 9:04 AM Signed Called patient, no answer. Message left indicating [employer] message would be sent with reason for [...] sclerosis (HCC) [G35] Order(s):MRI BRAIN WO/W IVCON [[id number]] Order #: [id number] FUTURE iv contrast (will be provided with [...] Status:Closed by ELIZABETH VICTORIA on 07/17/23 Normal [facility] CNOVon 07-10-2023 CNOV Office Visit (PAINLN ) YAMILKA VASQUEZ ([id number]) 1970 F Date Time Provider Department 07/10/23 6:00 PM [facility] During your visit today, we recorded the following information about you: Pulse Weight Height 89/minute 134.3 kg 1.676 m [place] [facility], DO 07/12/2023 11:26 AM Signed [facility] Initial Evaluation July 10, 2023 This appointment was requested by Jessica Clarke PA-C, for my medical opinion regarding the evaluation and management of the patient's Yamilka Vasquez problems, and my final recommendations will be communicated to the requesting health care provider by way of the shared medical record for internal providers or letter via the [employer] for external providers. 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 Normal [facility] CBC W Auto Differential pane l (Bld)on 05-22-2023 Basophils (Bld) [#/Vol] 0.05 10*3/uL Normal <0.11 [facility] Comment on above: Order Comment: Speci men Type: BLOOD SPECIMENOrdering Facility: [facility] Address: [address] [place] [address] Performed By: #### 5 7021-8 ####[facility] [id number] [place] [address] [place] Basophils/100 WBC (Bld) 0.5 % Normal [facility] Comment on above: Order Comment: Speci men Type: BLOOD SPECIMENOrdering Facility: [facility] Address: [address] [place] [address] Performed By: #### 5 7021-8 ####[facility] [id number] [place] [address] [place] Differential cell count method Nom (Bld) Auto Normal [facility] Comment on above: Order Comment: Speci men Type: BLOOD SPECIMENOrdering Facility: [facility] Address: [address] [place] [address] Performed By: #### 5 7021-8 ####[facility] [id number] [place] [address] [place] Eosinophils (Bld) [#/Vol] 0.19 10*3/uL Normal <0.46 [facility] Comment on above: Order Comment: Speci men Type: BLOOD SPECIMENOrdering Facility: [facility] Address: [address] [place] [address] Performed By: #### 5 7021-8 ####[facility] LABCLIA [id number] [place] [address] [place] Eosinophils/100 WBC (Bld) 2.1 % Normal [facility] Comment on above: Order Comment: Speci men Type: BLOOD SPECIMENOrdering Facility: [facility] Address: [address] [place] [address] Performed By: #### 5 7021-8 ####[facility] LABCLIA [id number] [place] [address] [place] Erythrocyte distribution width (RBC) [Ratio] 15.5 % High 11.5-15.0 [facility] Comment on above: Order Comment: Speci men Type: BLOOD SPECIMENOrdering Facility: [facility] Address: [address] [place] [address] Performed By: #### 5 7021-8 ####[facility] LABCLIA [id number] [place] [address] [place] Hematocrit (Bld) [Volume fraction] 42.1 % Normal 36.0-46.0 [facility] Comment on above: Order Comment: Speci men Type: BLOOD SPECIMENOrdering Facility: [facility] Address: [address] [place] [address] Performed By: #### 5 7021-8 ####[facility] LABIA [id number] [place] [address] [place] Hemoglobin (Bld) [Mass/Vol] 12.9 g/dL Normal 11.5-15.5 [facility] Comment on above: Order Comment: Speci men Type: BLOOD SPECIMENOrdering Facility: [facility] Address: [address] [place] [address] Performed By: #### 5 7021-8 ####[facility] LABIA [id number] [place] [address] [place] Immature granulocytes (Bld) [#/Vol] 0.04 10*3/uL Normal <0.10 [facility] Comment on above: Order Comment: Speci men Type: BLOOD SPECIMENOrdering Facility: [facility] Address: [address] [place] [address] Performed By: #### 5 7021-8 ####[facility] LABIA [id number] [place] [address] [place] Immature granulocytes/100 WBC (Bld) 0.4 % Normal [facility] Comment on above: Order Comment: Speci men Type: BLOOD SPECIMENOrdering Facility: [facility] Address: [address] [place] [address] Performed By: #### 5 7021-8 ####[facility] LABCLIA [id number] [place] [address] [place] Lymphocytes (Bld) [#/Vol] 0.82 10*3/uL Low 1.00-4.00 [facility] Comment on above: Order Comment: Speci men Type: BLOOD SPECIMENOrdering Facility: [facility] Address: [address] [place] [address] Performed By: #### 5 7021-8 ####[facility] LABCLIA [id number] [place] [address] [place] Lymphocytes/100 WBC (Bld) 9.0 % Normal [facility] Comment on above: Order Comment: Speci men Type: BLOOD SPECIMENOrdering Facility: [facility] Address: [address] [place] [address] Performed By: #### 5 7021-8 ####[facility] LABCLIA [id number] [place] [address] [place] MCH (RBC) [Entitic mass] 26.9 pg Normal 26.0-34.0 [facility] Comment on above: Order Comment: Speci men Type: BLOOD SPECIMENOrdering Facility: [facility] Address: [address] [place] [address] Performed By: #### 5 7021-8 ####[facility] LABCLIA [id number] [place] [address] [place] MCHC (RBC) [Mass/Vol] 30.6 g/dL Normal 30.5-36.0 [facility] Comment on above: Order Comment: Speci men Type: BLOOD SPECIMENOrdering Facility: [facility] Address: [address] [place] [address] Performed By: #### 5 7021-8 ####[facility] LABCLIA [id number] [place] [address] [place] MCV (RBC) [Entitic vol] 87.9 fL Normal 80.0-100.0 [facility] Comment on above: Order Comment: Speci men Type: BLOOD SPECIMENOrdering Facility: [facility] Address: [address] [place] [address] Performed By: #### 5 7021-8 ####[facility] LABCLIA [id number] [place] [address] [place] Monocytes (Bld) [#/Vol] 0.93 10*3/uL High <0.87 [facility] Comment on above: Order Comment: Speci men Type: BLOOD SPECIMENOrdering Facility: [facility] Address: [address] [place] [address] Performed By: #### 5 7021-8 ####[facility] LABCLIA [id number] [place] [address] [place] Monocytes/100 WBC (Bld) 10.2 % Normal [facility] Comment on above: Order Comment: Speci men Type: BLOOD SPECIMENOrdering Facility: [facility] Address: [address] [place] [address] Performed By: #### 5 7021-8 ####[facility] LABCLIA [id number] [place] [address] [place] Neutrophils (Bld) [#/Vol] 7.07 10*3/uL Normal 1.45-7.50 [facility] Comment on above: Order Comment: Speci men Type: BLOOD SPECIMENOrdering Facility: [facility] Address: [address] [place] [address] Performed By: #### 5 7021-8 ####[facility] LABCLIA [id number] [place] [address] [place] Neutrophils/100 WBC (Bld) 77.8 % Normal [facility] Comment on above: Order Comment: Speci men Type: BLOOD SPECIMENOrdering Facility: [facility] Address: [address] [place] [address] Performed By: #### 5 7021-8 ####[facility] LABCLIA [id number] [place] [address] [place] Nucleated RBC (Bld) [#/Vol] 10*3/uL Normal <0.01 [facility] Comment on above: Order Comment: Speci men Type: BLOOD SPECIMENOrdering Facility: [facility] Address: [address] [place] [address] Performed By: #### 5 7021-8 ####[facility] LABCLIA [id number] [place] [address] [place] Nucleated RBC/100 WBC (Bld) [Ratio] 0.0 /100 WBC Normal [facility] Comment on above: Order Comment: Speci men Type: BLOOD SPECIMENOrdering Facility: [facility] Address: [address] [place] [address] Performed By: #### 5 7021-8 ####[facility] LABCLIA [id number] [place] [address] [place] Platelet mean volume (Bld) [Entitic vol] 12.4 fL Normal 9.0-12.7 [facility] Comment on above: Order Comment: Speci men Type: BLOOD SPECIMENOrdering Facility: [facility] Address: [address] [place] [address] Performed By: #### 5 7021-8 ####[facility] LABCLIA [id number] [place] [address] [place] Platelets (Bld) [#/Vol] 208 10*3/uL Normal 150-400 [facility] Comment on above: Order Comment: Speci men Type: BLOOD SPECIMENOrdering Facility: [facility] Address: [address] [place] [address] Performed By: #### 5 7021-8 ####[facility] LABCLIA [id number] [place] [address] [place] RBC (Bld) [#/Vol] 4.79 10*6/uL Normal 3.90-5.20 [facility] Comment on above: Order Comment: Speci men Type: BLOOD SPECIMENOrdering Facility: [facility] Address: [address] [place] [address] Performed By: #### 5 7021-8 ####[facility] LABCLIA [id number] [place] [address] [place] WBC (Bld) [#/Vol] 9.10 10*3/uL Normal 3.70-11.00 [facility] Comment on above: Order Comment: Speci men Type: BLOOD SPECIMENOrdering Facility: [facility] Address: [address] [place] [address] Performed By: #### 5 7021-8 ####[facility] LABCLIA [id number] [place] [address] [place] CD19 ABSOLUTE COUNTon 2023 CD3-CD19+ cells (Bld) [#/Vol] 219 cells/uL Normal 75-660 [facility] Comment on above: Order Comment: Speci men Type: BLOOD SPECIMENOrdering Facility: [facility] Address: [address] [place] [address] Performed By: #### A BS19 ####[facility] LABIA [id number] [place] [address] [place] CD3-CD19+ cells/100 cells (Bld) 23 % High 5-22 [facility] Comment on above: Order Comment: Speci men Type: BLOOD SPECIMENOrdering Facility: [facility] Address: [address] [place] [address] Performed By: #### A BS19 ####[facility] LABIA [id number] [place] [address] [place] Lymphocytes/100 WBC FC (Bld) Normal [facility] Comment on above: Order Comment: Speci men Type: BLOOD SPECIMENOrdering Facility: [facility] Address: [address] [place] [address] Performed By: #### A BS19 ####[facility] LABIA [id number] [place] [address] [place] CNOVon 05-22-2023 CNOV Office Visit ([place]OR[place] ) YAMILKA VASQUEZ ([id number]) 1970 F Date Time Provider Department 05/22/23 [...] her tubes tied. Referring Provider: SARTHAK ESCOBAR [[id number]] Allergies As of Date: 05/22/2023 (No Known Allergies) Date Reviewed: 10/11/2022 Reviewed by: Maryam Cabrera, MOE - Fully Assessed Primary Visit Diagnosis:Multiple sclerosis (HCC) [G35] Other Visit Diagnosis:Multiple sclerosis, relapsing-remitting (HCC) [G35] Order(s):TREATMENT PARAMETER-NOT NEEDED [[id number]] Order #: [id number]: 1 BCN CD20 NURSING COMMUNICATION [[id number]] Order #: [id number]: 1 BCN NURSING COMMUNICATION [[id number]] Order #: [id number]: 1 CD19 ABSOLUTE COUNT [SQABS19] Order #: [id number] FUTURE [] methylPREDNISolone sod succinate(PF) 100 mg injection (SOLU-Medrol)Disp: Rfl: [] acetaminophen 1,000 mg tab(s) (TYLENOL)Disp: Rfl: [] diphenhydrAMINE 50 mg (BENADRYL)Disp: Rfl: [] ocrelizumab 600 mg in NaCl 0.9% 500 mL (OCREVUS)Disp: Rfl: CBC + DIFF [SQCBCDIF] Order #: [id number]. #:[id number] COMP METABOLIC PANEL [SQCMP] Order #: [id number]. #:[id number] IGG [SQIGG] Order #: [id number]. #:[id number] IGM [SQIGM] Order #: [id number]. #:[id number] CD19 ABSOLUTE COUNT [SQABS19] Order #: [id number]. #:[id number] Prescriptions as of 05/23/2023 - lisinopril (ZESTRIL) [...] Status:Closed by SHE BRAND on 05/22/23 Normal [facility] Comprehensive metabolic 2000 panelon 05-22-2023 Albumin [Mass/Vol] 4.0 g/dL Normal 3.9-4.9 [facility] Comment on above: Order Comment: Speci men Type: BLOOD SPECIMENOrdering Facility: [facility] Address: [address] [place] [address] [place] [address] Performed By: #### 2 4323-8 ####[facility] LABCLIA [id number] [place] [address] [place] ALP [Catalytic activity/Vol] 90 U/L Normal 34-123 [facility] Comment on above: Order Comment: Speci men Type: BLOOD SPECIMENOrdering Facility: [facility] Address: [address] [place] [address] Performed By: #### 2 4323-8 ####[facility] LABCLIA [id number] [place] [address] [place] ALT [Catalytic activity/Vol] 23 U/L Normal 7-38 [facility] Comment on above: Order Comment: Speci men Type: BLOOD SPECIMENOrdering Facility: [facility] Address: [address] [place] [address] Performed By: #### 2 4323-8 ####[facility] LABCLIA [id number] [place] [address] [place] Anion gap [Moles/Vol] 13 mmol/L Normal 9-18 [facility] Comment on above: Order Comment: Speci men Type: BLOOD SPECIMENOrdering Facility: [facility] Address: [address] [place] [address] Performed By: #### 2 4323-8 ####[facility] LABCLIA [id number] [place] [address] [place] AST [Catalytic activity/Vol] 25 U/L Normal 13-35 [facility] Comment on above: Order Comment: Speci men Type: BLOOD SPECIMENOrdering Facility: [facility] Address: [address] [place] [address] Performed By: #### 2 4323-8 ####[facility] LABCLIA [id number] [place] [id number] [place] Bilirubin [Mass/Vol] 0.3 mg/dL Normal 0.2-1.3 [facility] Comment on above: Order Comment: Speci men Type: BLOOD SPECIMENOrdering Facility: [facility] Address: [address] [place] [address] Performed By: #### 2 4323-8 ####[facility] LABCLIA [id number] [address] [address] [place] Calcium [Mass/Vol] 9.4 mg/dL Normal 8.5-10.2 [facility] Comment on above: Order Comment: Speci men Type: BLOOD SPECIMENOrdering Facility: [facility] Address: [address] [place] [address] Performed By: #### 2 4323-8 ####[facility] LABCLIA [id number] [place] [address] [place] Chloride [Moles/Vol] 103 mmol/L Normal 97-105 [facility] Comment on above: Order Comment: Speci men Type: BLOOD SPECIMENOrdering Facility: [facility] Address: [address] [place] [address] Performed By: #### 2 4323-8 ####[facility] LABCLIA [id number] [place] [address] [place] CO2 [Moles/Vol] 27 mmol/L Normal 22-30 [facility] Comment on above: Order Comment: Speci men Type: BLOOD SPECIMENOrdering Facility: [facility] Address: [address] [place] [address] Performed By: #### 2 4323-8 ####[facility] LABCLIA [id number] [place] [id number] [place] Creatinine [Mass/Vol] 1.04 mg/dL High 0.58-0.96 [facility] Comment on above: Order Comment: Speci men Type: BLOOD SPECIMENOrdering Facility: [facility] Address: [address] [place] [address] Performed By: #### 2 4323-8 ####[facility] LABCLIA [id number] [place] [address] [place] Creatinine and Glomerular filtration rate.predicted panel (S/P/Bld) 64 mL/min/1.73m??? Normal >=60 [facility] Comment on above: Order Comment: Rebeca ruelas Type: BLOOD SPECIMENOrdering Facility: [facility] Address: [address] [place] [address] Result Comment: Karyn mated Glomerular Filtration Rate [...] actual GFR. Performed By: #### 2 4323-8 ####[facility] LABIA [id number] [place] [address] [place] Glucose [Mass/Vol] 88 mg/dL Normal 74-99 [facility] Comment on above: Order Comment: Rebeca ruelas Type: BLOOD SPECIMENOrdering Facility: [facility] Address: [address] [place] [address] Result Comment: The [place] [employer] (ADA) provides guidance for cutoff [...] Standards of Medical Care in Diabetes 2016, [place] [employer]. Diabetes Care. 2016.39(Suppl 1). Performed By: #### 2 4323-8 ####[facility] LABCLIA [id number] [place] [address] [place] Potassium [Moles/Vol] 3.7 mmol/L Normal 3.7-5.1 [facility] Comment on above: Order Comment: Speci men Type: BLOOD SPECIMENOrdering Facility: [facility] Address: [address] [place] [address] Performed By: #### 2 4323-8 ####[facility] LABCLIA [id number] [place] [address] [place] Protein [Mass/Vol] 7.1 g/dL Normal 6.3-8.0 [facility] Comment on above: Order Comment: Speci men Type: BLOOD SPECIMENOrdering Facility: [facility] Address: [address] [place] [address] Performed By: #### 2 4323-8 ####[facility] LABCLIA [id number] [place] [address] [place] Sodium [Moles/Vol] 143 mmol/L Normal 136-144 [facility] Comment on above: Order Comment: Speci men Type: BLOOD SPECIMENOrdering Facility: [facility] Address: [address] [place] [address] Performed By: #### 2 4323-8 ####[facility] LABCLIA [id number] [place] [address] [place] Urea nitrogen [Mass/Vol] 17 mg/dL Normal 7-21 [facility] Comment on above: Order Comment: Speci men Type: BLOOD SPECIMENOrdering Facility: [facility] Address: [address] [place] [address] Performed By: #### 2 4323-8 ####[facility] LABCLIA [id number] [place] [address] [place] IgG SerPl-mCncon 05-22-2023 IgG [Mass/Vol] 954 mg/dL Normal 700-1600 [facility] Comment on above: Order Comment: Speci men Type: BLOOD SPECIMENOrdering Facility: [facility] Address: [address] [place], [place] [address] Performed By: #### 2 465-3, 2472-9 ####[facility] LABCLIA [id number] [place] [id number] [place] IgM SerPl-mCncon 05-22-2023 IgM [Mass/Vol] 74 mg/dL Normal 40-230 [facility] Comment on above: Order Comment: Speci men Type: BLOOD SPECIMENOrdering Facility: [facility] Address: [address] [facility] [place] [id number] Performed By: #### 2 465-3, 2472-9 ####[facility] LABCLIA [id number] [place] [id number] [place] So 05-14-2023 CNPN Telephone (NIQ) YAMILKA VASQUEZ ([id number]) 1970 F Date Time Provider Department 05/14/23 [...] Status:Closed by MICHELLE HAINES on 05/14/23 Normal [facility] PREG HCG QUALon 09-21-2022 , QUAL Negative Normal NEGATIVE [facility] Comment on above: Performed By: #### P REG #### [facility] [address] [place] [address] Dr. Angel Li IMMUNOGLOBULIN IGG QUANTITAT IVEon 06-06-2022 Immunoglobulin G, Qn, Serum 1032 mg/dL Normal 586-1602 [facility] Comment on above: Performed By: #### I MIGGQN #### [facility] [address] [place] [address] Dr. Angel Li IMMUNOGLOBULIN IGM QUANTITAT IVEon 06-06-2022 Immunoglobulin M, Qn, Serum 46 mg/dL Normal 26-217 [facility] Comment on above: Performed By: #### I MIGMQN #### [facility] [address] [place] [address] Dr. Angel Li CBC AUTO DIFFon 06-05-2022 BASO # 0.0 103/ul Normal 0.0-0.1 [facility] Comment on above: Performed By: #### C BC #### [facility] [address] [place] [address] Dr. Angel Li Basophils/100 WBC (Bld) 0.5 % Normal 0.2-2.0 [facility] Comment on above: Performed By: #### C BC #### [facility] [address] [place] [address] Dr. Angel Li EO # 0.2 103/ul Normal 0.0-0.7 [facility] Comment on above: Performed By: #### C BC #### [facility] [address] [place] [address] Dr. Angel Li Eosinophils/100 WBC (Bld) 2.6 % Normal 0.9-7.0 [facility] Comment on above: Performed By: #### C BC #### [facility] [address] [place] [address] Dr. Angel Li Erythrocyte distribution width (RBC) [Ratio] 14.5 % Normal 11.0-15.0 [facility] Comment on above: Performed By: #### C BC #### [facility] [address] [place] [address] Dr. Angel Li Hematocrit (Bld) [Volume fraction] 36.5 % Normal 36.0-48.0 [facility] Comment on above: Performed By: #### C BC #### [facility] [address] [place] [address] Dr. Angel Li Hemoglobin (Bld) [Mass/Vol] 11.8 g/dL Critically low 12.0-16.0 [facility] Comment on above: Performed By: #### C BC #### [facility] [address] [place] [address] Dr. Angel Li IG # 0.03 10e3/ul Normal 0.00-0.03 [facility] Comment on above: Performed By: #### C BC #### [facility] [address] [place] [address] Dr. Angel Li IG % 0.4 % Normal 0.0-0.5 [facility] Comment on above: Performed By: #### C BC #### [facility] [address] [place] [address] Dr. Angel Li LYMPH # 0.8 103/ul Critically low 1.2-3.8 [facility] Comment on above: Performed By: #### C BC #### [facility] [address] [place] [address] Dr. Angel Li Lymphocytes/100 WBC (Bld) 9.8 % Critically low 20.5-60.0 [facility] Comment on above: Performed By: #### C BC #### [facility] [address] [place] [address] Dr. Angel Li MANUAL DIFF REQ NO Normal [facility] Comment on above: Performed By: #### C BC #### [facility] [address] [place] [address] Dr. Angel Li MCH (RBC) [Entitic mass] 29.0 pg Normal 26.7-34.0 [facility] Comment on above: Performed By: #### C BC #### [facility] [address] [place] [address] Dr. Angel Li MCHC (RBC) [Mass/Vol] 32.3 g/dL Normal 29.9-35.2 [facility] Comment on above: Performed By: #### C BC #### [facility] [address] [place] [address] Dr. Angel Li MCV (RBC) [Entitic vol] 89.7 fL Normal 81.0-99.0 [facility] Comment on above: Performed By: #### C BC #### [facility] [address] [place] [address] Dr. Angel Li MONO # 1.0 103/ul Critically high 0.3-0.8 [facility] Comment on above: Performed By: #### C BC #### [facility] [address] [place] [address] Dr. Angel Li Monocytes/100 WBC (Bld) 13.0 % Critically high 1.7-12.0 [facility] Comment on above: Performed By: #### C BC #### [facility] [address] [place] [address] Dr. Angel Li NEUT # 5.9 103/ul Normal 1.4-6.5 [facility] Comment on above: Performed By: #### C BC #### [facility] [address] [place] [address] Dr. Angel Li Neutrophils/100 WBC (Bld) 73.7 % Normal 43.0-75.0 [facility] Comment on above: Performed By: #### C BC #### [facility] [address] [place] [address] Dr. Angel Li Platelet mean volume (Bld) [Entitic vol] 11.6 fL Normal 9.5-13.5 [facility] Comment on above: Performed By: #### C BC #### [facility] [address] [place] [address] Dr. Angel Li PLT 200 103/ul Normal 150-450 [facility] Comment on above: Performed By: #### C BC #### [facility] [address] [place] [address] Dr. Angel Li RBC 4.07 106/ul Critically low 4.20-5.40 [facility] Comment on above: Performed By: #### C BC #### [facility] [address] [place] [address] Dr. Angel Li WBC 8.0 103/ul Normal 4.0-11.0 [facility] Comment on above: Performed By: #### C BC #### [facility] [address] [place] [address] Dr. Angel Li PROF 14(COMP METB)on 023 Albumin [Mass/Vol] 3.4 g/dL Normal 3.4-5.0 [facility] Comment on above: Performed By: #### C MP #### [facility] [address] [place] [address] Dr. Angel Li Albumin/Globulin [Mass ratio] 0.9 {ratio} Normal [facility] Comment on above: Performed By: #### C MP #### [facility] [address] [place] [address] Dr. Angel Li ALP [Catalytic activity/Vol] 122 U/L Critically high 46-116 [facility] Comment on above: Performed By: #### C MP #### [facility] [address] [place] [address] Dr. Angel Li ALT [Catalytic activity/Vol] 35 U/L Normal 14-59 [facility] Comment on above: Performed By: #### C MP #### [facility] [address] [place] [address] [address] Angel Li Anion gap [Moles/Vol] 9.7 mmol/L Normal [facility] Comment on above: Performed By: #### C MP #### [facility] [address] [address] [address] Angel Li AST [Catalytic activity/Vol] 32 U/L Normal 15-37 [facility] Comment on above: Performed By: #### C MP #### [facility] [address] [address] [address] Angel Li Bilirubin [Mass/Vol] 0.4 mg/dL Normal 0.2-1.0 [facility] Comment on above: Performed By: #### C MP #### [facility] [address] [address] [address] Angel Li Calcium [Mass/Vol] 9.0 mg/dL Normal 8.5-10.1 [facility] Comment on above: Performed By: #### C MP #### [facility] [address] [place] [address] Dr. Angel Li Chloride [Moles/Vol] 103 mmol/L Normal 98-107 [facility] Comment on above: Performed By: #### C MP #### [facility] [address] [address] [address] Angel Li CO2 [Moles/Vol] 32.3 mmol/L Critically high 21.0-32.0 [facility] Comment on above: Performed By: #### C MP #### [facility] [address] [address] [address] Angel Li Creatinine [Mass/Vol] 0.97 mg/dL Normal 0.55-1.02 [facility] Comment on above: Performed By: #### C MP #### [facility] [address] [address] [address] Angel Li EGFR-AF [place]LANDER >60 Normal >=60 [facility] Comment on above: Performed By: #### C MP #### [facility] [address] [address] [address] Angel Li EGFR-NON AF [place]ER =60 Normal >=60 [facility] Comment on above: Performed By: #### C MP #### [facility] [address] [address] [address] Angel Li Globulin (S) [Mass/Vol] 3.7 g/dL Normal [facility] Comment on above: Performed By: #### C MP #### [facility] [address] [address] [address] Angel Li Glucose [Mass/Vol] 87 mg/dL Normal 74-106 [facility] Comment on above: Performed By: #### C MP #### [facility] [address] [address] [address] Angel Li Potassium [Moles/Vol] 4.0 mmol/L Normal 3.5-5.1 [facility] Comment on above: Performed By: #### C MP #### [facility] [address] [address] [address] Angel Li Protein [Mass/Vol] 7.1 g/dL Normal 6.4-8.2 [facility] Comment on above: Performed By: #### C MP #### [facility] [address] [address] [address] Angel Li Sodium [Moles/Vol] 141 mmol/L Normal 136-145 [facility] Comment on above: Performed By: #### C MP #### [facility] [address] [address] [address] Angel Li Urea nitrogen [Mass/Vol] 11.0 mg/dL Normal 7.0-18.0 [facility] Comment on above: Performed By: #### C MP #### [facility] [address] [address] [address] Angel Li Urea nitrogen/Creatinine [Mass ratio] 11.3 mg/mg Normal [facility] Comment on above: Performed By: #### C MP #### [facility] [address] [place] [address] Dr. Angel Li PAP ACOG PANEL 2: 30 to 65on 03-13-2022 . . Normal [facility] Comment on above: Result Comment: Perf ormed at: WB Performed By: #### [id number] #### [facility] [address] [place] [address] Dr. Angel Li Age Gdln ACOG Testing 30-65 [facility] Comment on above: Performed By: #### [id number] #### [facility] [address] [place] [address] Dr. Angel Li DIAGNOSIS: Comment [facility] Comment on above: Result Comment: NEGA TIVE FOR INTRAEPITHELIAL LESION OR MALIGNANCY. Performed at: WB Performed By: #### [id number] #### [facility] [address] [place] [address] Dr. Angel Li HPV Aptima Negative Normal Negative [facility] Comment on above: Result Comment: This nucleic acid amplification test detects fourteen high-risk HPV types (16,18,31,33,35,39,45,51,52,56,58,59,66,68) without differentiation. Performed at: =G Performed By: #### [id number] #### [facility] [address] [place] [address] Dr. Angel Li Methodology: Comment [facility] Comment on above: Result Comment: This liquid based ThinPrep(R) pap test was screened with the use of an image guided system. Performed at: WB Performed By: #### [id number] #### [facility] [address] [place] [address] Dr. Angel Li Note: Comment Normal [facility] Comment on above: Result Comment: The Pap smear is a screening test designed to aid in the detection of premalignant and malignant conditions of the uterine cervix. It is not a diagnostic procedure and should not be used as the sole means of detecting cervical cancer. Both false-positive and false-negative reports do occur. . Performed at: WB Performed By: #### [id number] #### [facility] [address] [place] [address] Dr. Angel Li Performed by: Comment Normal [facility] Comment on above: Result Comment: Shyanne Back, Cartography Teacher (ASCP) Performed at: WB Performed By: #### [id number] #### [facility] [address] [address] [address] Angel Li Specimen adequacy: Comment Normal [facility] Comment on above: Result Comment: Sati sfactory for evaluation. Endocervical and/or squamous metaplastic cells (endocervical component) are present. Performed at: WB Performed By: #### [id number] #### [facility] [address] [address] [address] Angel Li VAGINITIS/VAGINOSIS DNA PROB Marcelino 03-08-2022 Gracia species Negative Normal Negative [facility] Comment on above: Performed By: #### V AGINT #### [facility] [address] [address] [address] Angel Li Gardnerella vaginalis Positive Abnormal Negative [facility] Comment on above: Performed By: #### V AGINT #### [facility] [address] [address] [address] Angel Li Trichomonas vaginalis Negative Normal Negative [facility] Comment on above: Performed By: #### V AGINT #### [facility] [address] [address] [address] Angel Li BRAIN & CERVICAL SPINE MRI D ISCRETE DATAon 11-14-2021 Brain Enhancing Lesions None [facility] Brain Interval Improvement None [facility] Brain New T2 Lesions [facility] Brain Other Significant MRI Findings None. [facility] Brain Parenchymal Volume Loss None [facility] Brain T2 Gardner of Disease Moderate [facility] MRI BRAIN WO/W IVCONon 11-14 [facility] CBC W Auto Differential pane l (Bld)on 09-18-2021 Abs Immature Gran <0.03 <0.10 k/uL [facility] Basophils (Bld) [#/Vol] 0.03 10*3/uL <0.11 k/uL [facility] Basophils/100 WBC (Bld) 0.5 % [facility] Differential cell count method Nom (Bld) Auto [facility] Eosinophils (Bld) [#/Vol] 0.15 10*3/uL <0.46 k/uL [facility] Eosinophils/100 WBC (Bld) 2.4 % [facility] Erythrocyte distribution width (RBC) [Ratio] 14.2 % 11.5 - 15.0 % [facility] Hematocrit (Bld) [Volume fraction] 41.5 % 36.0 - 46.0 % [facility] Hemoglobin (Bld) [Mass/Vol] 12.9 g/dL 11.5 - 15.5 g/dL [facility] Immature Gran % 0.3 % [facility] Lymphocytes (Bld) [#/Vol] 0.60 10*3/uL Low 1.00 - 4.00 k/uL [facility] Lymphocytes/100 WBC (Bld) 9.7 % [facility] MCH (RBC) [Entitic mass] 29.3 pg 26.0 - 34.0 pg [facility] MCHC (RBC) [Mass/Vol] 31.1 g/dL 30.5 - 36.0 g/dL [facility] MCV (RBC) [Entitic vol] 94.3 fL 80.0 - 100.0 fL [facility] Monocytes (Bld) [#/Vol] 0.74 10*3/uL <0.87 k/uL [facility] Monocytes/100 WBC (Bld) 12.0 % [facility] Neutrophils (Bld) [#/Vol] 4.62 10*3/uL 1.45 - 7.50 k/uL [facility] Neutrophils/100 WBC (Bld) 75.1 % [facility] Nucleated RBC (Bld) [#/Vol] 10*3/uL <0.01 k/uL [facility] Nucleated RBC/100 WBC (Bld) [Ratio] 0.0 /100 WBC [facility] Platelet mean volume (Bld) [Entitic vol] 12.5 fL 9.0 - 12.7 fL [facility] Platelets (Bld) [#/Vol] 181 10*3/uL 150 - 400 k/uL [facility] RBC (Bld) [#/Vol] 4.40 10*6/uL 3.90 - 5.2 0 m/uL [facility] WBC (Bld) [#/Vol] 6.16 10*3/uL 3.70 - 11. 00 k/uL [facility] Comprehensive metabolic 2000 panelon 09-18-2021 Albumin [Mass/Vol] 3.8 g/dL Low 3.9 - 4.9 g/dL [facility] ALP [Catalytic activity/Vol] 114 U/L 34 - 123 U/L [facility] ALT [Catalytic activity/Vol] 16 U/L 7 - 38 U/L [facility] Anion gap [Moles/Vol] 11 mmol/L 9 - 18 mmol/L [facility] AST [Catalytic activity/Vol] 21 U/L 13 - 35 U/L [facility] Bilirubin [Mass/Vol] 0.4 mg/dL 0.2 - 1 .3 mg/dL [facility] Calcium [Mass/Vol] 9.0 mg/dL 8.5 - 10. 2 mg/dL [facility] Chloride [Moles/Vol] 102 mmol/L 97 - 10 5 mmol/L [facility] CO2 [Moles/Vol] 25 mmol/L 22 - 30 mmol/L [facility] Creatinine [Mass/Vol] 0.97 mg/dL High 0.58 - 0.96 mg/dL [facility] Estimated Glomerular Filtration Rate 70 mL/min/1.73m >=60 mL/min/1.73m [facility] Glucose [Mass/Vol] 60 mg/dL Low 74 - 99 mg/dL [facility] Potassium [Moles/Vol] 4.0 mmol/L 3.7 - 5.1 mmol/L [facility] Protein [Mass/Vol] 7.0 g/dL 6.3 - 8.0 g/dL [facility] Sodium [Moles/Vol] 138 mmol/L 136 - 144 mmol/L [facility] Urea nitrogen [Mass/Vol] 10 mg/dL 7 - 21 mg/dL [facility] LIPID PANEL BASICon 09-19-19 22 Cholesterol [Mass/Vol] 142 mg/dL <200 mg/dL [facility] Cholesterol in HDL [Mass/Vol] 39 mg/dL Low >39 [facility] Cholesterol in LDL [Mass/Vol] 72 mg/dL <100 mg/dL [facility] Cholesterol in LDL/Cholesterol in HDL [Mass ratio] 1.85 {ratio} <2.54 [facility] Cholesterol in VLDL [Mass/Vol] 31 mg/dL High <30 mg/dL [facility] Cholesterol non HDL [Mass/Vol] 103 mg/dL <130 mg/dL [facility] Cholesterol.total/Cho lesterol in HDL [Mass ratio] 3.64 {ratio} <5.10 [facility] Fasting Time 14 hours [facility] Triglyceride [Mass/Vol] 157 mg/dL High <150 mg/dL [facility] Antoni 09-05-2021 L - -------- Specimen: Received: 09/05/21 Status: KLEVER Graham Num: [id number] Spec Type: Surgical Subm Dr: Tyshawn Palencia MD Tissues: A Colon Biopsy (RANDOM COLON BX) B Colon - Polyp (TRANSVERSE) Procedures: HE Stain/4, Gross/Micro L4/2 -------- Patient Age/Sex Location Account Attending Physician -------- Yamilka Vasquez 51/F [id number] Tyshawn Palencia MD -------- SPEC NUM: RECD: 09/05/21 STATUS: KLEVER GRAHAM NUM: [id number] FELECIA: 09/05/21- SUBM DR: Tyshawn Palencia MD ENTERED: 09/05/21 [facility] DR: SPEC TYPE: Surgical DEPT: S [...] number and transverse colon polyp are multiple pineod tissue fragments aggregating 1.2 x 1.2 x 0.4 cm. Entirely submitted in one cassette labeled B1. Type of Fixative: 10% Neutral Buffered Formalin (SM/YJ) -------- Specimen: Received: 09/05/21 Status: KLEVER Graham Num: [id number] Spec Type: Surgical Subm Dr: Tyshawn Palencia MD Tissues: A Colon Biopsy (RANDOM COLON BX) B Colon - Polyp (TRANSVERSE) Procedures: HE Stain/4, Gross/Micro L4/2 -------- Patient: Yamilka Vasquez [id number] (Continued) -------- Specimen: Received: 09/05/21 (Continued) Signed (signature on file) Mikie Castanon MD 09/06/21 1550 -------- Specimen: Received: 09/05/21 Status: KLEVER Graham Num: [id number] Spec Type: Surgical Subm Dr: Tyshawn Palencia MD Tissues: A Colon Biopsy (RANDOM COLON BX) B Colon - Polyp (TRANSVERSE) Procedures: HE Stain/4, Gross/Micro L4/2 -------- Patient: Yamilka Vasquez [id number] (Continued) -------- Specimen: Received: 09/05/21 (Continued) Microscopic Description A. Two glass slides with H E stained material have been examined. The microscopic findings support the above pathologic diagnosis. B. Two glass slides with H E stained material have been examined. The microscopic findings support the above pathologic diagnosis. CPT Codes 69728?2 -------- -------- Specimen: Received: 09/05/21 Status: MERLYAurora Graham Num: [id number] Spec Type: Surgical Subm Dr: Tyshawn Palencia MD Tissues: A Colon Biopsy (RANDOM COLON BX) B Colon - Polyp (TRANSVERSE) Procedures: HE Stain/4, Gross/Micro L4/2 -------- Patient: Yamilka Vasquez [id number] (Continued) -------- Signed (signature on file) Mikie Castanon MD 09/06/21 1550 [facility] COVID-19 Antigenon 2 COVID-19 Antigen Healthcare Worker?: [...] developed and its performance characteristic determined by [employer] and validated at [facility]. This test has not been FDA [...] for SARS Antigen by ELAINA PERFORMED BY: [place] [address] PATHOLOGIST WHEEL AND CASTER REPAIRER JESSICA SMITH M.D. Normal [facility] Comment on above: Performed By: #### S OFIANEG, COVID-19 JAMILA #### [facility] [address] [place] [address] COVID-19 SOFIAOrdered By: Mague Palencia on 09-01-2021 SARS-CoV+SARS-CoV-2 (COVID-19) Ag IA.rapid Ql (Resp) Negative Negative [facility] Comment on above: This is a duplicate Jamila SARS Antigen (ELAINA) result to be used for statistical tracking purpose only. No Panel InformationOrdered By: Tyshawn Palencia on 09-01-2021 SARS Antigen (LFIA) [place] Jamila Ag Negativeon 09-02-19 22 Jamila Ag Negative Negative Normal Negative [facility] Comment on above: Result Comment: This is a duplicate Jamila SARS Antigen (ELAINA) result to be used for statistical tracking purpose only. PERFORMED BY: [place] [address] PATHOLOGIST WHEEL AND CASTER REPAIRER JESSICA SMITH M.D. Performed By: #### S OFIANEG, COVID-19 JAMILA #### [facility] [address] [place] [address] CBC W/AUTO DIFFon 05-07-2017 % NEUTROPHILS 69.5 [...] mass conc 78 mg/dL Normal 70-100 [facility] Comment on above: Result Comment: DIAG NOSTIC THRESHOLDS FOR DIABETES AND IMPAIRED FASTING GLUCOSE (IFG) FASTING PLASMA GLUCOSE NORMAL <100 mg/dL IFG 100-125 mg/dL DIABETES >/= 126 mg/dL Potassium molar conc 4.1 mmol/L Normal 3.5-5.4 [email or web address] Sodium 144 mmol/L Normal 134-147 Pathology [...] LDL to HDL Ratio 1.7 Normal <3.5 [facility] LDL-CHOL, CALCULATED 95 mg/dL Normal <130 [email or web address] Comment on above: Result Comment: LDL CHOLESTEROL REFERENCE RANGE FOR 0-19 YEARS: DESIRABLE <110 mg/dL, BORDERLINE 110-129, HIGH RISK >130 LDL CHOLESTEROL REFERENCE RANGE FOR ADULTS: DESIRABLE <100 mg/dL, BORDERLINE 130-159, HIGH RISK >160REFERENCE RANGES REVISED 10/28/15 ACCORDING TO NCEP GUIDELINES Triglyceride 107 mg/dL Normal <150 [facility] VLDL-CHOL, CALCULATED 21 mg/dL Normal <30 [facility] TSH WITH FT4 REFLEXon 2016 Thyroid stimulating hormone (TSH) 1.480 uIU/mL Normal 0.40-4.40 [facility] Comment on above: Result Comment: [email or web address] [address] [email or web address] Director: FERMÍN MarinelliIA No. [id number] [facility] Accreditation No. [id number] CARDIOPULMONARY REPORT CLDon 12-24-2016 CARDIOPULMONARY REPORT CLD [id number] [address] [place], [place] [address] [place], [place] [address]Uvzcggq Name: YAMILKA VASQUEZ Visit ID: [id number] Record #: [id number] : 1970CC: Frances Aguilera CNP Pulmonary Function [...] seen. Clinical correlation is recommended. Author: CAROL Rao/[id number] T: 12/24/2016 10:41 cc: Frances Aguilera CNP Electronically Authenticated and Edited by:Jacki Hess MD On 12/31/2016 09:16 AM EDT Normal [facility] Vital Signs Date Time Vital Sign Value Performing Clinician Facility 08-18-2024 09:18-0400 Body mass index (BMI) [Ratio] 44.96 kg/m2 Kristin Mesaz TAX SENIOR ASSOCIATE Work Phone: [facility] 08-18-2024 09:18-0400 Body temperature 98.2 [degF] Kristin Ascencioholz TAX SENIOR ASSOCIATE Work Phone: [facility] 08-18-2024 09:18-0400 Body weight 122.56 kg Kristin Mesaz TAX SENIOR ASSOCIATE Work Phone: [facility] 08-18-2024 09:18-0400 Diastolic blood pressure 80 mm[Hg] Kristin Sonuholz TAX SENIOR ASSOCIATE Work Phone: [facility] 08-18-2024 09:18-0400 Heart rate 98 /min Kristin Mesaz TAX SENIOR ASSOCIATE Work Phone: [facility] 08-18-2024 09:18-0400 Respiratory rate 24 /min Kristin Mesaz TAX SENIOR ASSOCIATE Work Phone: [facility] 08-18-2024 09:18-0400 SaO2% (BldA) [Mass fraction] 95 % Kristin Mesaz TAX SENIOR ASSOCIATE Work Phone: [facility] 08-18-2024 09:18-0400 Systolic blood pressure 110 mm[Hg] Kristin Mesaz TAX SENIOR ASSOCIATE Work Phone: [facility] 06-17-2024 09:33-0500 Body mass index (BMI) [Ratio] 47.09 kg/m2 Sherrie Boone TAX SENIOR ASSOCIATE Work Phone: [facility] 06-17-2024 09:33-0500 Body temperature 97.7 [degF] Sherrie Boone TAX SENIOR ASSOCIATE Work Phone: [facility] 06-17-2024 09:33-0500 Body weight 128.37 kg Sherrie Boone TAX SENIOR ASSOCIATE Work Phone: [facility] 06-17-2024 09:33-0500 Diastolic blood pressure 82 mm[Hg] Sherrie Boone TAX SENIOR ASSOCIATE Work Phone: [facility] 06-17-2024 09:33-0500 Heart rate 100 /min Sherrie Rothmantrick TAX SENIOR ASSOCIATE Work Phone: [facility] 06-17-2024 09:33-0500 Respiratory rate 16 /min Sherrie Rothmantrick TAX SENIOR ASSOCIATE Work Phone: [facility] 06-17-2024 09:33-0500 SaO2% (BldA) [Mass fraction] 97 % Sherrie Augustink TAX SENIOR ASSOCIATE Work Phone: [facility] 06-17-2024 09:33-0500 Systolic blood pressure 120 mm[Hg] Sherrie Rothmantrick TAX SENIOR ASSOCIATE Work Phone: [facility] 05-18-2024 09:18-0500 Body height 165.1 cm Kristin Mesaz TAX SENIOR ASSOCIATE Work Phone: [facility] 05-18-2024 09:18-0500 Body mass index (BMI) [Ratio] 46.93 kg/m2 Kristin Mesaz TAX SENIOR ASSOCIATE Work Phone: [facility] 05-18-2024 09:18-0500 Body temperature 98.1 [degF] Kristin Harveyhholz TAX SENIOR ASSOCIATE Work Phone: [facility] 05-18-2024 09:18-0500 Body weight 127.91 kg Kristin Ascencioholz TAX SENIOR ASSOCIATE Work Phone: [facility] 05-18-2024 09:18-0500 Diastolic blood pressure 90 mm[Hg] Kristin Harveyhholz TAX SENIOR ASSOCIATE Work Phone: [facility] 05-18-2024 09:18-0500 Heart rate 81 /min Kristin Harveyhholz TAX SENIOR ASSOCIATE Work Phone: [facility] 05-18-2024 09:18-0500 Respiratory rate 19 /min Kristin Harveyhholz TAX SENIOR ASSOCIATE Work Phone: [facility] 05-18-2024 09:18-0500 SaO2% (BldA) [Mass fraction] 95 % Kristinvirginia Gabrielaimee TAX SENIOR ASSOCIATE Work Phone: [facility] 05-18-2024 09:18-0500 Systolic blood pressure 144 mm[Hg] Kristin Harveycaitiez TAX SENIOR ASSOCIATE Work Phone: [facility] 04-27-2024 09:03-0500 Body height 165.1 cm [facility] Work Phone: [facility] 04-27-2024 09:03-0500 Body mass index (BMI) [Ratio] 46.43 kg/m2 [facility] Work Phone: [facility] 04-27-2024 09:03-0500 Body weight 126.55 kg [facility] Work Phone: [facility] 03-05-2024 10:04-0400 Body height 165.1 cm Kristin Bonitaz TAX SENIOR ASSOCIATE Work Phone: [facility] 03-05-2024 10:04-0400 Body mass index (BMI) [Ratio] 46.49 kg/m2 Kristin Basil TAX SENIOR ASSOCIATE Work Phone: [facility] 03-05-2024 10:04-0400 Body temperature 97.59 [degF] Kristin Bonitaz TAX SENIOR ASSOCIATE Work Phone: [facility] 03-05-2024 10:04-0400 Body weight 126.73 kg Kristin Basil TAX SENIOR ASSOCIATE Work Phone: [facility] 03-05-2024 10:04-0400 Diastolic blood pressure 82 mm[Hg] Kristin Bonitaz TAX SENIOR ASSOCIATE Work Phone: [facility] 03-05-2024 10:04-0400 Heart rate 82 /min Kristin Sonuholz TAX SENIOR ASSOCIATE Work Phone: [facility] 03-05-2024 10:04-0400 Respiratory rate 18 /min Kristin Sonuholz TAX SENIOR ASSOCIATE Work Phone: [facility] 03-05-2024 10:04-0400 SaO2% (BldA) [Mass fraction] 97 % Kristin Basil TAX SENIOR ASSOCIATE Work Phone: [facility] 03-05-2024 10:04-0400 Systolic blood pressure 112 mm[Hg] Kristin Basil TAX SENIOR ASSOCIATE Work Phone: [facility] 02-25-2024 08:32-0400 Body height 165.1 cm Eliazar Zbigniew DO Work Phone: [facility] 02-25-2024 08:32-0400 Body mass index (BMI) [Ratio] 48.09 kg/m2 Eliazar Brooks DO Work Phone: [facility] 02-25-2024 08:32-0400 Body weight 131.09 kg Eliazar Brooks DO Work Phone: [facility] 02-10-2024 17:11-0400 Heart rate 82 /min Eliazar Brooks [facility] 02-10-2024 17:11-0400 SaO2% (BldA) [Mass fraction] 94 % Eliazar Brooks [facility] 02-10-2024 17:11-0400 Diastolic blood pressure 89 mm[Hg] Eliazar Brooks [facility] 02-10-2024 17:11-0400 Mean blood pressure 109 mm[Hg] Eliazar Brooks [facility] 02-10-2024 17:11-0400 Systolic blood pressure 148 mm[Hg] Eliazar Brooks [facility] 02-10-2024 17:11-0400 Respiratory rate 16 /min Eliazar Brooks [facility] 02-10-2024 17:11-0400 Body temperature 98.24 [degF] Eliazar Brooks [facility] 02-10-2024 16:06-0400 Heart rate 81 /min Eliazar Brooks [facility] 02-10-2024 16:06-0400 SaO2% (BldA) [Mass fraction] 99 % Eliazar Brooks [facility] 02-10-2024 16:06-0400 Diastolic blood pressure 81 mm[Hg] Eliazar Brooks [facility] 02-10-2024 16:06-0400 Mean blood pressure 98 mm[Hg] Eliazar Brooks [facility] 02-10-2024 16:06-0400 Systolic blood pressure 134 mm[Hg] Eliazar Brooks [facility] 02-10-2024 16:05-0400 Respiratory rate 16 /min Eliazar Brooks [facility] 02-10-2024 16:00-0400 Body temperature 97.52 [degF] Eliazar Brooks [facility] 02-10-2024 16:00-0400 Respiratory rate 22 /min Eliazar Brooks [facility] 02-10-2024 16:00-0400 SaO2% (BldA) [Mass fraction] 95 % Eliazar Brooks [facility] 02-10-2024 16:00-0400 Systolic blood pressure 139 mm[Hg] Eliazar Brooks [facility] 02-10-2024 15:50-0400 Mean blood pressure 106 mm[Hg] Eliazar Brooks [facility] 02-10-2024 15:50-0400 Respiratory rate 24 /min Eliazar Brooks [facility] 02-10-2024 15:45-0400 Respiratory rate 9 /min Eliazar Brooks [facility] 02-10-2024 15:37-0400 Blood Pressure Location Eliazar Brooks [facility] 02-10-2024 15:37-0400 Body temperature 97.7 [degF] Eliazar Brooks [facility] 02-10-2024 15:30-0400 Respiratory rate 18 /min Eliazar Brooks [facility] 02-10-2024 12:04-0400 Blood Pressure Location Eliazar Brooks [facility] 02-10-2024 12:04-0400 Mean blood pressure 100 mm[Hg] Eliazar Brooks [facility] 02-10-2024 12:04-0400 Heart rate 94 /min Eliazar Brooks [facility] 02-10-2024 12:03-0400 Body temperature 97.88 [degF] Eliazar Brooks [facility] 02-10-2024 12:03-0400 Blood Pressure Location Eliazar Brooks [facility] 02-03-2024 14:28-0400 Body height 165.1 cm Kristin Aichholz [employer] Work Phone: [facility] 02-03-2024 14:28-0400 Body mass index (BMI) [Ratio] 48.09 kg/m2 Kristin Aichholz [employer] S[employer]IOR [employer]OCIATE Work Phone: [facility] 02-03-2024 14:28-0400 Body temperature 98.49 [degF] Kristin Aichholz [employer] SENIOR [employer]OCIATE Work Phone: [facility] 02-03-2024 14:28-0400 Body weight 131.09 kg Kristin Aichholz [employer] SENIOR [employer]OCIATE Work Phone: [facility] 02-03-2024 14:28-0400 Diastolic blood pressure 90 mm[Hg] Kristin Aichholz [employer] SENIOR ASSOCIATE Work Phone: [facility] 02-03-2024 14:28-0400 Heart rate 83 /min Kristin Aichholz [employer] SENIOR [employer]OCIATE Work Phone: [facility] 02-03-2024 14:28-0400 Respiratory rate 18 /min Kristin Aichholz [employer] S[employer]IOR [employer]OCIATE Work Phone: [facility] 02-03-2024 14:28-0400 SaO2% (BldA) [Mass fraction] 93 % Kristin Gracia [employer] S[employer]IOR ASSOCIATE Work Phone: [facility] 02-03-2024 14:28-0400 Systolic blood pressure 128 mm[Hg] Kristin Gracia [employer] SENIOR [employer]OCIATE Work Phone: [facility] 01-30-2024 10:45-0400 Body height 165.1 cm Eliazar Brooks DO Work Phone: [facility] 01-30-2024 10:45-0400 Body mass index (BMI) [Ratio] 48.92 kg/m2 Eliazar Brooks DO Work Phone: [facility] 01-30-2024 10:45-0400 Body weight 133.36 kg Eliazar Brooks DO Work Phone: [facility] 07-10-2023 15:53-0500 Body height 167.6 cm Paris Paris DO Work Phone: [facility] 07-10-2023 15:53-0500 Body weight 134.26 kg Paris Paris DO Work Phone: [facility] 07-10-2023 15:53-0500 Heart rate 89 /min Paris Paris DO Work Phone: [facility] 07-10-2023 15:53-0500 SaO2% (BldA) [Mass fraction] 97 % Paris Paris DO Work Phone: [facility] 06-26-2023 11:34-0500 Body height 165.1 cm Shaikh Jonn BENITEZ Work Phone: [facility] 06-26-2023 11:34-0500 Body mass index (BMI) [Ratio] 48.09 kg/m2 Shaikh Jonn BENITEZ Work Phone: [facility] 06-26-2023 11:34-0500 Body temperature 98.6 [degF] Shaikh Jonn BENITEZ Work Phone: [facility] [employer] 06-26-2023 11:34-0500 Body weight 131.09 kg Shaikh Jonn BENITEZ Work Phone: [facility] 06-26-2023 11:34-0500 Diastolic blood pressure 80 mm[Hg] Shaikh Jonn BENITEZ Work Phone: [facility] 06-26-2023 11:34-0500 Heart rate 77 /min Shaikh Jonn BENITEZ Work Phone: [facility] 06-26-2023 11:34-0500 SaO2% (BldA) [Mass fraction] 96 % Shaikh Jonn BENITEZ Work Phone: [facility] 06-26-2023 11:34-0500 Systolic blood pressure 136 mm[Hg] Shaikh Jonn BENITEZ Work Phone: [facility] [employer] 04-18-2022 10:30-0500 Body height 173.99 cm Tyshawn Palencia Other [employer] Other 04-18-2022 10:30-0500 Body mass index (BMI) [Ratio] 46.68 kg/m2 Tyshawn Palencia Other [employer] Other 04-18-2022 10:30-0500 Body weight 141.34 kg Tyshawn Palencia Other [employer] Other 04-18-2022 10:30-0500 Diastolic blood pressure 89 mm[Hg] Tyshawn Palencia Other [employer] Other 04-18-2022 10:30-0500 Systolic blood pressure 129 mm[Hg] Tyshawn Palencia Other [employer] Other 03-22-2022 12:54-0400 Body height 172.7 cm Jessica Young PA-C Work Phone: [facility] 03-22-2022 12:54-0400 Body weight 131.54 kg Jessica Young PA-C Work Phone: [facility] 03-22-2022 12:54-0400 Diastolic blood pressure 76 mm[Hg] Jessica Young PA-C Work Phone: [facility] 03-22-2022 12:54-0400 Heart rate 108 /min Jessica Young PA-C Work Phone: [facility] 03-22-2022 12:54-0400 Systolic blood pressure 129 mm[Hg] Jessica Young PA-C Work Phone: [facility] 03-22-2022 09:30-0400 Body temperature 97 [degF] Infusion 10 Work Phone: [facility] 03-22-2022 09:30-0400 Diastolic blood pressure 83 mm[Hg] Infusion 10 Work Phone: [facility] 03-22-2022 09:30-0400 Heart rate 79 /min Infusion 10 Work Phone: [facility] 03-22-2022 09:30-0400 Systolic blood pressure 152 mm[Hg] Infusion 10 Work Phone: [facility] 12-13-2021 10:30-0400 Body height 173.99 cm Tyshawn Palencia Other [employer] Other 12-13-2021 10:30-0400 Body mass index (BMI) [Ratio] 45.55 kg/m2 Tyshawn Palencia Other [employer] Other 12-13-2021 10:30-0400 Body weight 137.89 kg Tyshawn Palencia Other [employer] Other 11-14-2021 08:42-0400 Body height 174 cm Jessica Young PA-C Work Phone: [facility] 11-14-2021 08:42-0400 Body weight 132 kg Jessicadonna Clarke PA-C Work Phone: [facility] 11-14-2021 08:42-0400 Diastolic blood pressure 68 mm[Hg] Jessica Young PA-C Work Phone: [facility] 11-14-2021 08:42-0400 Heart rate 88 /min Jessica Vince PA-C Work Phone: [facility] 11-14-2021 08:42-0400 Systolic blood pressure 112 mm[Hg] Jessica Clarke PA-C Work Phone: [facility] 09-18-2021 12:00-0400 Body temperature 97.9 [degF] Infusion 2 Work Phone: [facility] 09-18-2021 12:00-0400 Diastolic blood pressure 89 mm[Hg] Infusion 2 Work Phone: [facility] 09-18-2021 12:00-0400 Heart rate 93 /min Infusion 2 Work Phone: [facility] 09-18-2021 12:00-0400 Respiratory rate 16 /min Infusion 2 Work Phone: [facility] 09-18-2021 12:00-0400 Systolic blood pressure 131 mm[Hg] Infusion 2 Work Phone: [facility] 09-18-2021 08:00-0400 Body height 174 cm Infusion 2 Work Phone: [facility] 09-18-2021 08:00-0400 Body weight 117.94 kg Infusion 2 Work Phone: [facility] 09-05-2021 10:45-0400 Diastolic blood pressure 68 mm[Hg] Services [facility] Work Phone: [facility] 09-05-2021 10:45-0400 Heart rate 91 /min Services [facility] Work Phone: [facility] 09-05-2021 10:45-0400 Respiratory rate 18 /min Services [employer] Work Phone: [facility] 09-05-2021 10:45-0400 SaO2% (BldA) [Mass fraction] 99 % Services [employer] Work Phone: [facility] 09-05-2021 10:45-0400 Systolic blood pressure 122 mm[Hg] Services [employer] Work Phone: [facility] 09-05-2021 08:26-0400 Body height 173.99 cm Services [employer] Work Phone: [facility] 09-05-2021 08:26-0400 Body mass index (BMI) [Ratio] 43.4 kg/m2 Services [facility] [employer] Work Phone: [facility] 09-05-2021 08:26-0400 Body temperature 98.2 [degF] Services [facility] [employer] Work Phone: [facility] 09-05-2021 08:26-0400 Body weight 131.54 kg Services [facility] [employer] Work Phone: [facility] 08-14-2021 11:30-0400 Body height 173.99 cm Tyshawn Palencia Other [employer] [facility] [employer] Other 08-14-2021 11:30-0400 Body mass index (BMI) [Ratio] 43.45 kg/m2 Tyshawn Palencia Other [employer] Other 08-14-2021 11:30-0400 Body weight 131.54 kg Tyshawn Palencia Other [employer] Other Encounters Encounter Date Encounter Type Care Provider Facility Start: 08-18-2024 End: 08-18-2024 Drill Map flowsheet Kristin Gracia [employer] S[employer]OCIATE Work Phone: [facility] Start: 08-18-2024 End: 08-18-2024 Drill Map flowsheet Kristin Gracia [employer] S[employer]IOR [employer]OCIATE Work Phone: [facility] Start: 08-18-2024 End: 08-18-2024 Office outpatient visit 25 minutes Kristin Gabrielaimee [employer] S[employer]IOR [employer]OCIATE Work Phone: [facility] Comment on above: Generalized anxiety disorder with panic attacks (CMS/HCC) (Primary Dx); Morbid (severe) obesity due to excess calories (CMS/HCC); Major depressive disorder, recurrent, moderate (CMS/HCC); Primary insomnia Start: 08-18-2024 End: 08-18-2024 ambulatory KRISTIN AICHHOLZ Not Available Start: 08-03-2024 End: 08-03-2024 Telephone encounter Elva Rodriguez [employer] SENIOR ASSOCIATE Work Phone: [facility] Start: 07-07-2024 End: 07-07-2024 Bamboo flowsheet Kristin Gabrielaimee TAX SENIOR ASSOCIATE Work Phone: [facility] Start: 07-07-2024 End: 07-07-2024 Bamboo flowsheet Kristin Ascenciovicky [employer] SENIOR ASSOCIATE Work Phone: [facility] Start: 07-07-2024 End: 07-07-2024 ambulatory KRISTIN AICHHOLZ Not Available Start: 06-30-2024 End: 06-30-2024 Clinisync Result Encounter Kristin Gabrielaimee [employer] S[employer]IOR [employer]OCIATE Work Phone: [facility] Unsolicited Start: 06-30-2024 End: 06-30-2024 Clinisync Result Encounter Kristin Gabrielaimee [employer] SENIOR ASSOCIATE Work Phone: [facility] Unsolicited Start: 06-17-2024 End: 06-17-2024 Bamboo flowsheet Sherrie Augustink [employer]AX SENIOR ASSOCIATE Work Phone: [facility] Start: 06-17-2024 End: 06-17-2024 Bamboo flowsheet Sherrie Boone [employer]AX SENIOR ASSOCIATE Work Phone: [facility] Start: 06-17-2024 End: 06-17-2024 Office outpatient visit 10 minutes Sherrie Boone [employer] S[employer]IOR ASSOCIATE Work Phone: [facility] Comment on above: Acute non-recurrent frontal sinusitis (Primary Dx) Start: 06-17-2024 End: 06-17-2024 ambulatory SHERRIE BOONE Not Available Start: 05-18-2024 End: 05-18-2024 Bamboo flowsheet Kristin aBsil [employer]AX SENIOR ASSOCIATE Work Phone: [facility] Start: 05-18-2024 End: 05-18-2024 Bamboo flowsheet Kristin Harveyberenicevicky [employer] SENIOR ASSOCIATE Work Phone: [facility] Start: 05-18-2024 End: 05-18-2024 Patient encounter procedure Kristin Basil [employer] SENIOR ASSOCIATE Work Phone: [facility] Comment on above: [...] Orders Only Jessica Clarke PA-C Work Phone: [facility] Start: 05-04-2024 End: 05-05-2024 Telephone encounter Aria Agrawal PT [facility] Comment on above: re: PT Eval tomorrow ; Call Back Start: 04-27-2024 End: 04-27-2024 Telephone encounter Kristin Gracia [employer] S[employer]IOR ASSOCIATE Work Phone: [facility] Start: 04-27-2024 End: 04-27-2024 Patient encounter procedure Yahaira IBANEZ Work Phone: [facility] Comment on above: Adhesive capsulitis of left shoulder (Primary Dx); S/P arthroscopy of left shoulder Start: 04-27-2024 End: 04-27-2024 ambulatory YAHAIRA VAZQUEZ Not Available Start: 04-26-2024 End: 04-27-2024 Refill Kristin Gracia [employer] SENIOR ASSOCIATE Work Phone: [facility] Comment on above: Anxiety and depressi on (CMS/HCC) Start: 04-15-2024 End: 04-15-2024 Refill Kristin Gracia [employer]AX SENIOR ASSOCIATE Work Phone: [facility] Comment on above: Acute cough (Primary Dx) Start: 04-14-2024 End: 04-14-2024 Refill Kristin Gracia [employer]AX SENIOR ASSOCIATE Work Phone: [facility] Comment on [...] 03-25-2024 End: 03-25-2024 Bamboo flowsheet Inderjitdaniel Pelletier LOGISTICS VICE PRESIDENT [facility] Start: 03-25-2024 End: 03-25-2024 Bamboo flowsheet Inderjitdaniel Pelletier LOGISTICS VICE PRESIDENT [facility] Start: 03-25-2024 End: 03-25-2024 ambulatory Inderjit Pelletier LOGISTICS VICE PRESIDENT [facility] Comment on above: Left shoulder pain, unspecified chronicity (Primary Dx); S/P arthroscopy of left shoulder Start: 03-13-2024 End: 03-13-2024 Bamboo flowsheet Inderjit Pelletier LOGISTICS VICE PRESIDENT [facility] Start: 03-13-2024 End: 03-13-2024 Bamboo flowsheet Inderjit Pelletier LOGISTICS VICE PRESIDENT [facility] Start: 03-13-2024 End: 03-13-2024 ambulatory Inderjit Tyshawn LOGISTICS VICE PRESIDENT [facility] Comment on above: Left [...] Start: 03-06-2024 End: 03-06-2024 ambulatory Inderjit Pelletier LOGISTICS VICE PRESIDENT [facility] Comment on above: S/P arthroscopy of l eft shoulder (Primary Dx) Start: 03-05-2024 End: 03-05-2024 Bamboo flowsheet Kristin Gracia TAX SENIOR ASSOCIATE Work Phone: [facility] Start: 03-05-2024 End: 03-05-2024 Bamboo flowsheet Kristin Gracia TAX SENIOR ASSOCIATE Work Phone: [facility] Start: 03-05-2024 End: 03-05-2024 Office outpatient visit 15 minutes Kristin Gracia [employer]AX SENIOR ASSOCIATE Work Phone: [facility] Comment on above: Anxiety and depressi on (CMS/HCC) (Primary Dx); Needs flu shot; Candidiasis of skin Start: 03-05-2024 End: 03-05-2024 ambulatory KRISTIN GRACIA Not Available Start: 03-03-2024 End: 03-03-2024 Bamboo flowsheet Inderjit Pelletier LOGISTICS VICE PRESIDENT [facility] Start: 03-03-2024 End: 03-03-2024 Bamboo flowsheet Inderjit Pelletier LOGISTICS VICE PRESIDENT [facility] Start: 03-03-2024 End: 03-03-2024 ambulatory Inderjit Pelletier LOGISTICS VICE PRESIDENT [facility] Comment on above: S/P [...] to same day surgery center Eliazar Brooks [facility] Start: 02-10-2024 End: 02-10-2024 ambulatory Eliazar Brooks Facility[place] [place] Start: 02-05-2024 End: 02-05-2024 ambulatory FRANCES AGUILERA Facility:[facility] [place] Start: 02-03-2024 End: 02-03-2024 Office outpatient visit 15 minutes Kristin Gracia NP Work Phone: [facility] Comment on above: Diverticulitis (Prim donna Dx); Class 3 severe obesity without serious comorbidity with body mass index (BMI) of 45.0 to 49.9 in adult, unspecified obesity type ([facility]/HCC) Start: 02-03-2024 End: 02-03-2024 Bamboo flowsheet Kristin Aichholz TAX SENIOR ASSOCIATE Work Phone: [facility] Start: 02-03-2024 End: 02-03-2024 Bamboo flowsheet Kristin Basil TAX SENIOR ASSOCIATE Work Phone: [facility] Start: 02-03-2024 [...] 01-29-2024 End: 01-29-2024 Orders Only Kristin Gracia TAX SENIOR ASSOCIATE Work Phone: [facility] Comment on above: Multiple sclerosis ( CMS/HCC) (Primary Dx) Start: 01-23-2024 End: 01-23-2024 Clinisync Result Encounter Kristin Gracia TAX SENIOR ASSOCIATE Work Phone: [facility] Unsolicited Start: 01-23-2024 End: 01-23-2024 Clinisync Result Encounter Kristin Gracia TAX SENIOR ASSOCIATE Work Phone: [facility] Unsolicited Start: 01-23-2024 End: 01-23-2024 ambulatory SHERRIE BOONE Not Available Start: 01-14-2024 End: 01-17-2024 Telephone encounter Jessica Clarke PA-C Work Phone: [facility] Comment on above: Orders Start: 01-06-2024 End: 01-06-2024 ambulatory KRISTIN AICHHOLZ Not Available Start: 12-24-2023 End: 01-10-2024 Pre-admission assessment Eliazar Brooks [facility] Start: 12-24-2023 End: 12-24-2023 ambulatory ELIAZAR BROOKS Not Available Start: 12-19-2023 [facility] Work Phone: Infusion Start: 12-02-2023 End: 12-02-2023 ambulatory KRISTIN AICHHOLZ Not Available Start: 11-27-2023 Orders Only Jessica Almodovar Work Phone: [facility] Comment on above: Multiple sclerosis ( HCC) (Primary Dx); Vitamin D deficiency Start: 11-26-2023 Orders Only Sarthak Escobar MD, PhD Work Phone: [facility] Start: 11-13-2023 End: 11-13-2023 ambulatory YAHAIRA D HILLS Not Available Start: 11-05-2023 End: 11-05-2023 ambulatory YAHAIRA D HILLS Not Available Start: 10-10-2023 End: 10-10-2023 ambulatory KRISTIN AICHHOLZ Not Available Start: 10-07-2023 End: 10-07-2023 ambulatory YAHAIRA D HILLS Not Available Start: 09-06-2023 End: 09-06-2023 ambulatory Katerin Mccoy PA-C Work Phone: [facility] Comment on above: Left arm weakness (P rimary Dx) Start: 09-06-2023 End: 09-06-2023 Telemedicine consultation with patient Katerin Christina IBANEZ-Leah Work Phone: [facility] Start: 08-22-2023 ambulatory Jessica Almodovar Work Phone: [facility] Comment on above: Spine Start: 08-22-2023 Chart abstracting None (Historical) Neurology Start: 08-21-2023 Telephone encounter Jessica mireles PA-C Work Phone: [facility] Comment on above: Patient Question Start: 08-08-2023 ambulatory ELIAZAR Aiken ty:[facility] Start: 07-15-2023 Telephone encounter Jessica mireles PA-C Work Phone: [facility] Comment on above: Orders (Order for MR Josh needed for Brain and Cervical) Start: 07-10-2023 End: 07-10-2023 ambulatory JESSICA CLARKE Facility:[facility] Start: 07-10-2023 End: 07-10-2023 Patient encounter procedure [...] E Paris DO Work Phone: [facility] Start: 06-26-2023 End: 06-26-2023 Office outpatient visit 25 minutes Shaikh Jonn BENITEZ Work Phone: [facility] Comment on above: Multiple sclerosis ( CMS/HCC) (Primary Dx); Primary hypertension (CMS/HCC); Anxiety and depression (CMS/HCC); COPD with exacerbation (CMS/HCC); Non-recurrent acute suppurative otitis media of left ear without spontaneous rupture of tympanic membrane Start: 05-22-2023 End: 05-22-2023 ambulatory SARTHAK ESCOBAR Facility:[facility] Start: 05-02-2023 End: 05-02-2023 ambulatory Jessica Clarke PA-C Work Phone: [facility] Comment on above: Multiple sclerosis ( HCC) (Primary Dx) Start: 05-02-2023 End: 05-02-2023 Telemedicine consultation with patient Jessica Clarke HENRY Work Phone: [facility] Start: 04-22-2023 ambulatory Jessica Clarke P A-C Work Phone: [facility] Comment on above: Skull Start: 04-19-2023 ambulatory Jessica Clarke P A-C Work Phone: [facility] Comment on above: Skull Start: 10-17-2022 ambulatory Valdez Sousa Work Phone: Internal Medicine [facility] Start: 10-01-2022 End: 10-01-2022 ambulatory PIPE BENDER KRISTIN GRACIA Facility: Start: 10-01-2022 ambulatory RUBINA BONILLAA BASIL Facil ity:[facility] Start: 09-21-2022 End: 09-21-2022 ambulatory YAHAIRA MCKEON . Facility:[facility] Start: 08-30-2022 Orders Only Jessica Clarke P A-C Work Phone: [facility] Comment on above: Multiple sclerosis, relapsing-remitting (HCC) (Primary Dx) Start: 06-05-2022 End: 06-06-[address] DOCTOR BULL Facility:[facility] Start: 04-18-2022 End: 04-18-2022 ambulatory Tyshawn Palencia Other [employer] Other Start: 04-18-2022 Office outpatient vi sit 15 minutes Tyshawn Palencia [facility] Gastroenterology Start: 03-30-2022 Telephone encounter Valdez aleman MD Work Phone: [address] [place] [address] Comment on above: Patient Update Start: 03-22-2022 End: 03-22-2022 Patient encounter procedure Jessica Clarke HENRY Work Phone: [facility] Comment on above: Multiple sclerosis, relapsing-remitting (HCC) (Primary Dx) Start: 03-22-2022 End: 11-03-2022 ambulatory Infusion Kriss Chair 10 Work Phone: Multiple Sclerosis Comment on above: Multiple sclerosis ( HCC) (Primary Dx) Start: 03-16-2022 Orders Only Sarthak Escobar MD, PhD Work Phone: [facility] Start: 03-07-2022 End: 03-07-2022 [facility] Start: 03-06-2022 ambulatory Valdez Sousa Work Phone: [facility] Start: 02-12-2022 Telephone encounter Jessica mireles PA-C Work Phone: Neurology Comment on above: Appointment (Called pt LVM to see about setting up pt and psycology.) Start: 01-16-2022 End: 01-16-2022 ambulatory Jojo Pickard OTR/L Work Phone: [facility] Occupational Therapy Comment on above: Multiple sclerosis, relapsing-remitting (HCC) Start: 12-13-2021 End: 12-13-2021 ambulatory Tyshawn Palencia Other [employer] Other Start: 12-13-2021 Office outpatient vi sit 15 minutes Tyshawn Palencia [facility] Gastroenterology Start: 11-15-2021 ambulatory Valdez Sousa Work Phone: Internal Medicine [facility] Start: 11-14-2021 End: 11-14-2021 Patient encounter procedure Jessica Clarke PA-C Work Phone: [facility] Comment on above: Multiple sclerosis, relapsing-remitting (HCC) (Primary Dx) Start: 11-14-2021 End: 11-14-2021 Subsequent hospital visit by physician Cara Manning (I-Stat/3t) Work Phone: Radiology Comment on above: Multiple sclerosis, relapsing-remitting (HCC) [G35] Start: 09-18-2021 End: 09-18-2021 ambulatory Infusion [place] Chair 2 Work Phone: Multiple Sclerosis Comment on above: Multiple sclerosis ( HCC) (Primary Dx); Multiple sclerosis, relapsing-remitting (HCC) Start: 09-15-2021 End: 09-15-2021 ambulatory Jessica Clarke HENRY Work Phone: [facility] Comment on above: Multiple sclerosis, relapsing-remitting (HCC) Start: 09-15-2021 End: 09-15-2021 Telemedicine consultation with patient Jessica ROMOLeah Work Phone: [facility] Start: 09-14-2021 End: 09-14-2021 ambulatory Tyshawn Moe Other [employer] Other Start: 09-14-2021 Telephone encounter Tyshawn Carlisle [employer] Start: 09-05-2021 End: 09-05-2021 Admission to same day surgery center Services [employer] Work Phone: [facility] Start: 09-01-2021 End: 09-01-2021 Patient encounter procedure Services [employer] Work Phone: [facility] Start: 08-14-2021 End: 08-14-2021 ambulatory Tyshawn Palencia Other [employer] Other Start: 08-14-2021 Office outpatient ne w 45 minutes Tyshawn Palencia [facility] Start: 07-28-2020 End: 07-28-2020 Patient encounter procedure Jazmin Shaikh Work Phone: [facility] Work Phone: Start: 12-20-2016 End: 12-21-2016 Ambulatory FRANCES L [facility] Facility:RESP Start: 11-27-2012 Patient encounter status Jessica Clarke HENRY Work Phone: [facility] Procedures Date Procedure Procedure Detail Performing Clinician Start: 06-30-2024 MM TOMOSYNTHESIS SCR EENING BI Kristin Gracia [employer] Work Phone: Start: 06-30-2024 Mammography Kristin rivera [employer] Work Phone: Start: 04-27-2024 Arthrocentesis aspir &/inj major jt/bursa w/us Yahaira IBANEZ Work Phone: Start: 02-25-2024 Radex shoulder compl ete minimum 2 views Eliazar Brooks DO Work Phone: Start: 02-10-2024 Arthroscopy of shoulder Eliazar Brooks Start: 01-23-2024 [facility] UA (CLEAN/CATCH) MICROSCOPIC IF INDICATE Kristin Basil [employer] Work Phone: Start: 03-07-2022 Microscopic observat ion [...] Diagnostic endoscopi c examination on colon Services [facility] Work Phone: Start: 09-01-2021 SARS Antigen (LFIA) Ser vices [facility] Work Phone: Start: 07-28-2020 Imm. administration COVID19 [employer] Jazmin Shaikh Work Phone: Start: 07-28-2020 SARS-CoV-2 vaccine, 0.5ml [employer] Jazmin Shaikh Work Phone: Start: 09-17-2012 Mammography Shaikh Ilan gimenez MD Work Phone: Ectopic (disorder) Eliazar Brooks Entire carpal canal (body structure) Eliazar Brooks Plan of Treatment Date Care Activity Detail Author Start: 09-22-2027 Screening for malign ant neoplasm of colon [facility] Start: 10-02-2026 Urine microalbumin profile [facility] Start: 09-18-2026 Lipid 1996 panel - S sofía or Plasma Lipid Screening [facility] Start: 09-18-2026 Lipid panel Lipid Screening [facility] Start: 09-18-2026 LIPID SCREEN LIPID SCREEN [facility] Start: 05-22-2026 Diabetes Screening Diabetes Screenin g [facility] Start: 11-08-2025 LIPID SCREEN LIPID SCREEN [facility] Start: 06-30-2025 Screening for malign ant neoplasm of breast Mammogram [facility] Start: 05-18-2025 Medicare Annual Well ness (AWV) Medicare Annual Wellness (AWV) [facility] Start: 03-07-2025 Screening for malign ant neoplasm of cervix [facility] Start: 09-30-2024 End: 09-30-2024 Patient encounter procedure 09/30/2024 8:40 AM EDT Office Visit [facility] [address] [place] [address] Kristin Gracia NP [address] [place] [address] [facility] Start: 09-18-2024 DIABETES SCREEN DIABETES SCREEN [facility] Start: 09-18-2024 Diabetes Screening Diabetes Screenin g [facility] Start: 09-07-2024 End: 09-07-2024 Patient encounter procedure 09/07/2024 8:00 AM EDT Office Visit [facility] [address] [place] [address] Nasra Horta, TAX SENIOR ASSOCIATE [address], [address] [place] [address] [facility] Start: 08-18-2024 End: 08-18-2024 Patient encounter procedure [facility] Comment on above: Morbid (severe) obes ity due to excess calories (CMS/HCC) (Primary Dx); Generalized anxiety disorder with panic attacks (CMS/HCC); Major depressive disorder, recurrent, moderate (CMS/HCC) Start: 07-13-2024 End: 07-13-2024 Patient encounter procedure 07/13/2024 9:40 AM EST Office Visit [facility] [address] [facility] [address] [place] [address] Nasra Horta, TAX SENIOR ASSOCIATE [address], [facility] [address] [place] [id number] [facility] Start: 07-07-2024 End: 07-07-2024 Patient encounter procedure 07/07/2024 10:00 AM EST Office Visit [facility] [address] [place] [address] Kristin Gracia NP [address] [place] [address] Generalized anxiety disorder with panic attacks (CMS/HCC) (Primary Dx); Multiple sclerosis (CMS/HCC); Major depressive disorder, recurrent, moderate (CMS/HCC); Morbid (severe) obesity due to excess calories (CMS/HCC); Body mass index (BMI) 45.0-49.9, adult (CMS/HCC) [facility] Comment on above: Generalized anxiety disorder with panic attacks (CMS/HCC) (Primary Dx); Multiple sclerosis (CMS/HCC); Major depressive disorder, recurrent, moderate (CMS/HCC); Morbid (severe) obesity due to excess calories (CMS/HCC); Body mass index (BMI) 45.0-49.9, adult (CMS/HCC) Start: 07-01-2024 End: 07-01-2024 Patient encounter procedure 07/01/2024 10:00 AM EST Office Visit [facility] [address] [place] [address] Kristin Gracia, TAX SENIOR ASSOCIATE [address] [place] [address] [facility] Start: 06-25-2024 End: 06-25-2024 Patient encounter procedure 06/25/2024 8:40 AM EST Office Visit [facility] [address] [place] [address] Kristin Gracia, TAX SENIOR ASSOCIATE [address] [place] [address] [facility] Start: 06-17-2024 End: 06-17-2024 Patient encounter procedure 06/17/2024 9:30 AM EST Office Visit [facility] [address] [place] [address] Sherrie Boone NP [address] [place] [address] Arrived [facility] Comment on above: Arrived Start: 06-08-2024 End: 06-08-2024 Patient encounter procedure 06/08/2024 9:45 AM EST Office Visit [facility] [address] [place] [place] [phone] Yahaira Vazquez PA [address] [place] [address] [facility] Start: 05-18-2024 End: 07-17-2025 [...] [facility] [address] [facility] [address] [place] [address] Nasra Horta, TAX SENIOR ASSOCIATE [address], [address] [address] [facility] Start: 05-05-2024 End: 05-05-2024 Patient encounter procedure 05/05/2024 9:40 AM EST Office Visit [facility] [address] [place] [address] Kristin Gracia NP [address] [place] [address] [facility] Start: 04-30-2024 Medicare Annual Well ness (AWV) Medicare Annual Wellness (AWV) [facility] Start: 04-29-2024 End: 04-29-2024 Patient encounter procedure 04/29/2024 9:40 AM EST Office Visit [facility] [address] [facility] [address] [place] [address] Nasra Horta, TAX SENIOR ASSOCIATE [address], [address] [phone] [facility] Start: 04-27-2024 End: 04-27-2024 Patient encounter procedure [facility] Start: 04-10-2024 End: 04-10-2024 ambulatory 04/10/2024 8:30 AM EST Treatment [facility] [address] [place] [address] Inderjit Pelletier, LOGISTICS VICE PRESIDENT [facility] Start: 04-07-2024 End: 04-07-2024 ambulatory 04/07/2024 9:00 AM EST Treatment [facility] [address] [place] [address] Aria Agrawal, PT [facility] Start: 04-02-2024 End: 04-02-2024 ambulatory 04/02/2024 8:30 AM EST Treatment [facility] [address] [facility] [address] [place] [address] Aria Agrawal, PT [facility] Start: 03-17-2024 End: 03-17-2024 ambulatory 03/17/2024 9:00 AM EDT Treatment [facility] [address] [facility] [address] [place] [address] Aria Agrawal, PT [facility] Start: 03-13-2024 End: 03-13-2024 ambulatory [facility] Comment on above: Arrived Start: 03-10-2024 End: 03-10-2024 ambulatory 03/10/2024 9:30 AM EDT Treatment [facility] [address] [facility] [address] [place] [address] Keli Major, LOGISTICS VICE PRESIDENT [facility] Start: 03-06-2024 End: 03-06-2024 ambulatory 03/06/2024 8:30 AM EDT Treatment [facility] [address] [facility] [address] [place] [address] Inderjit Pelletier, LOGISTICS VICE PRESIDENT [facility] Start: 03-05-2024 End: 03-05-2024 [...] [facility] [address] [place] [address] Eliazar Brooks, DO [address] [place] [address] [facility] Start: 02-25-2024 End: 02-25-2024 Patient encounter procedure 02/25/2024 8:15 AM EDT Office Visit [facility] [address] [place] [address] Eliazar Brooks, DO [address] [place] [address] [facility] Start: 02-10-2024 End: 02-10-2024 [...] [address] [place] [address] [facility] Start: 01-19-2024 Covid-19 Vaccine () Covid-19 Vaccine () [facility] Start: 01-19-2024 Influenza vaccination Influenza Vacc ine (#1) [facility] Start: 12-10-2023 End: 12-10-2023 Patient encounter procedure 12/10/2023 10:30 AM EDT Office Visit [facility] [address] [address] Jessica Clarke PA-C [address] [place] [address] follow up [facility] Comment on above: follow up Start: 11-27-2023 End: 02-26-2024 25-hydroxyvitamin D3 [Mass/volume] in Serum or Plasma VITAMIN D 25 HYDROXY Lab Routine Vitamin D deficiency Expected: 11/27/2023, Expires: 02/26/2024 [facility] Comment on above: Expected: 11/27/2023 , Expires: 02/26/2024 Start: 11-27-2023 End: 02-26-2024 CBC W Auto Differential panel - Blood COMPLETE BLOOD COUNT AND DIFFERENTIAL Lab Routine Multiple sclerosis (HCC) Expected: 11/27/2023, Expires: 02/26/[address] [facility] Work Phone: Comment on above: Expected: 11/27/2023 , Expires: 02/26/2024 Start: 11-27-2023 End: 02-26-2024 Comprehensive metabolic 2000 panel - Serum or Plasma COMPREHENSIVE METABOLIC PANEL Lab Routine Multiple sclerosis (HCC) Expected: 11/27/2023, Expires: 02/26/2024 [facility] Comment on above: Expected: 11/27/2023 , Expires: 02/26/2024 Start: 11-27-2023 End: 02-26-2024 IgG [Mass/volume] in Serum or Plasma IMMUNOGLOBULIN G Lab Routine Multiple sclerosis (HCC) Expected: 11/27/2023, Expires: 02/26/2024 [facility] Comment on above: Expected: 11/27/2023 , Expires: 02/26/2024 Start: 11-27-2023 End: 02-26-2024 IgM [Mass/volume] in Serum or Plasma IMMUNOGLOBULIN M Lab Routine Multiple sclerosis ([facility]) Expected: 11/27/2023, Expires: 02/26/2024 [facility] Comment on above: Expected: 11/27/2023 , Expires: 02/26/2024 Start: 11-27-2023 End: 11-27-2023 Patient encounter procedure 11/27/2023 12:00 PM EDT Appointment Radiology [address] [place] [address] Cervical Spine MRI Radiology Comment on above: Cervical Spine MRI Start: 11-09-2023 DIABETES SCREEN DIABETES SCREEN [facility] Start: 09-05-2023 End: 09-05-2023 Patient encounter procedure 09/05/2023 8:40 AM EDT Office Visit [facility] [address] [place] [address] Kristin Gracia NP [address] [place] [address] [facility] Start: 07-25-2023 End: 06-26-2024 Pulmonary function testing Pulmonary function testing Imaging Routine COPD with exacerbation ([facility]) Expected: 07/25/2023, Expires: 06/26/2024 [facility] Work Phone: Comment on above: Expected: 07/25/2023 , Expires: 06/26/2024 Start: 06-26-2023 End: 06-26-2024 XR Chest 2 Views XR chest 2 views Imaging Routine COPD with exacerbation ([facility]) Expected: 06/26/2023, Expires: 06/26/2024 [facility] Comment on above: Expected: 06/26/2023 , Expires: 06/26/2024 Start: 06-26-2023 End: 06-26-2023 Patient encounter procedure 06/26/2023 11:30 AM EST Office Visit [facility] [address] [place] [address] Shaikh Lunsford MD [address] [place] [address] Arrived [facility] Comment on above: Arrived Start: 05-20-2023 Behavioral Health Screening Behavioral Health Screening [facility] Start: 05-20-2023 Depression Assessment Depression Ass essment [facility] Start: 01-18-2023 Covid-19 Vaccine () Covid-19 Vaccine () [facility] Start: 01-18-2023 Influenza vaccination C [facility] Start: 09-15-2022 Adult depression screening assessment DEPRESSION SCREENING [facility] Start: 08-30-2022 End: 10-30-2022 CBC W Auto Differential panel - Blood CBC + DIFF Lab Routine Multiple sclerosis, relapsing-remitting (HCC) Expected: 08/30/2022, Expires: 10/30/[address] [facility] Work Phone: Comment on above: Expected: 08/30/2022 , Expires: 10/30/2022 Start: 08-30-2022 End: 10-30-2022 Comprehensive metabolic 2000 panel - Serum or Plasma COMP METABOLIC PANEL Lab Routine Multiple sclerosis, relapsing-remitting (HCC) Expected: 08/30/2022, Expires: 10/30/[address] [facility] Work Phone: Comment on above: Expected: 08/30/2022 , Expires: 10/30/2022 Start: 08-30-2022 End: 10-30-2022 IgG [Mass/volume] in Serum or Plasma IGG Lab Routine Multiple sclerosis, relapsing-remitting (HCC) Expected: 08/30/2022, Expires: 10/30/[address] [facility] Work Phone: Comment on above: Expected: 08/30/2022 , Expires: 10/30/2022 Start: 08-30-2022 End: 10-30-2022 IgM [Mass/volume] in Serum or Plasma IGM Lab Routine Multiple sclerosis, relapsing-remitting (HCC) Expected: 08/30/2022, Expires: 10/30/[address] [facility] Work Phone: Comment on above: Expected: 08/30/2022 , Expires: 10/30/2022 Start: 05-20-2022 DEPRESSION ASSESSMENT DEPRESSION ASS ESSMENT [facility] Start: 03-22-2022 End: 05-22-2022 CBC W Auto Differential panel - Blood CBC + DIFF Lab Routine Multiple sclerosis, relapsing-remitting (HCC) Expected: 03/22/2022, Expires: 05/22/[address] [facility] Work Phone: Comment on above: Expected: 03/22/2022 , Expires: 05/22/2022 Start: 03-22-2022 End: 05-22-2022 CD19 ABSOLUTE COUNT CD19 ABSOLUTE COUNT Lab Routine Multiple sclerosis (HCC) Expected: 03/22/2022, Expires: 05/22/[address] [facility] Work Phone: Comment on above: Expected: 03/22/2022 , Expires: 05/22/2022 Start: 03-22-2022 End: 05-22-2022 Comprehensive metabolic 2000 panel - Serum or Plasma COMP METABOLIC PANEL Lab Routine Multiple sclerosis, relapsing-remitting (HCC) Expected: 03/22/2022, Expires: 05/22/[address] [facility] Work Phone: Comment on above: Expected: 03/22/2022 , Expires: 05/22/2022 Start: 03-22-2022 End: 05-22-2022 IgG [Mass/volume] in Serum or Plasma IGG Lab Routine Multiple sclerosis, relapsing-remitting (HCC) Expected: 03/22/2022, Expires: 05/22/[address] [facility] Work Phone: Comment on above: Expected: 03/22/2022 , Expires: 05/22/2022 Start: 03-22-2022 End: 05-22-2022 IgM [Mass/volume] in Serum or Plasma IGM Lab Routine Multiple sclerosis, relapsing-remitting (HCC) Expected: 03/22/2022, Expires: 05/22/[address] [facility] Work Phone: Comment on above: Expected: 03/22/2022 , Expires: 05/22/2022 Start: 01-18-2022 Influenza vaccination C [facility] Start: 11-14-2021 End: 01-14-2022 JCV ANTIBODY & INDEX WITH REFLEX [facility] Work Phone: Comment on above: Expected: 11/14/2021 , Expires: 01/14/2022 Start: 09-18-2021 End: 11-18-2021 CD19 ABSOLUTE COUNT [facility] Work Phone: Comment on above: Expected: 09/18/2021 , Expires: 11/18/2021 Start: 09-16-2021 COVID-19 VACCINE (3 - Booster for Yeni series) COVID-19 VACCINE (3 - Booster for Yeni series) [facility] Start: 09-15-2021 End: 11-15-2021 CBC W Auto Differential panel - Blood CBC + DIFF Lab Routine Multiple sclerosis, relapsing-remitting (HCC) Expected: 09/15/2021, Expires: 11/15/[address] [facility] Work Phone: Comment on above: Expected: 09/15/2021 , Expires: 11/15/2021 Start: 09-15-2021 End: 11-15-2021 Comprehensive metabolic 2000 panel - Serum or Plasma COMP METABOLIC PANEL Lab Routine Multiple sclerosis, relapsing-remitting (HCC) Expected: 09/15/2021, Expires: 11/15/[address] [facility] Work Phone: Comment on above: Expected: 09/15/2021 , Expires: 11/15/2021 Start: 09-15-2021 End: 11-15-2021 IMMUNOGLOBULINS KESHAWN IMMUNOGLOBULINS KESHAWN Lab Routine Multiple sclerosis, relapsing-remitting (HCC) Expected: 09/15/2021, Expires: 11/15/[address] [facility] Work Phone: Comment on above: Expected: 09/15/2021 , Expires: 11/15/2021 Start: 09-15-2021 End: 11-15-2021 LIPID PANEL BASIC LIPID PANEL BASIC Lab Routine Multiple sclerosis, relapsing-remitting (HCC) Expected: 09/15/2021, Expires: 11/15/[address] [facility] Work Phone: Comment on above: Expected: 09/15/2021 , Expires: 11/15/2021 Start: 07-13-2021 COVID-19 VACCINE (3 - Booster for Yeni series) COVID-19 VACCINE (3 - Booster for Yeni series) [facility] Start: 05-20-2021 DEPRESSION ASSESSMENT DEPRESSION ASS ESSMENT [facility] Start: 2018 Influenza vaccination LUNG CANCER SC REENING [facility] Start: 2018 Pneumococcal Vaccine : 50+ (2 of 2 - PCV) Pneumococcal Vaccine: 50+ (2 of 2 - PCV) [facility] Start: 2018 Screening for malign ant neoplasm of lung Lung Cancer Screening [facility] Start: 2018 SHINGRIX VACCINE (1 of 2) STAFFORD GRIX VACCINE (1 of 2) [facility] Start: 09-17-2013 Screening for malign ant neoplasm of breast Mammogram [facility] Start: 2013 COLOGUARD (FIT-DNA) COLOGUARD (FIT-D NA) [facility] Start: 2013 Colonoscopy COLONOSCOPY [facility] Start: 2013 COLORECTAL CANCER SCREENING COLORECTAL CANCER SCREENING [facility] Start: [address] COLONOGRAPHY [facility] Start: 2013 FECAL OCCULT BLOOD FECAL OCCULT BLOO D [facility] Start: 2013 Screening for malign ant neoplasm of colon [facility] Start: 2013 SIGMOIDOSCOPY SIGMOIDOSCOPY [facility] Start: 2008 Mammography [facility] Start: 2008 Screening for malign ant neoplasm of breast Mammogram Screening [facility] Start: 1998 HPV TESTING HPV TESTING [facility] Start: 1998 Screening for malign ant neoplasm of cervix [facility] Start: 1989 PAP TESTING PAP TESTING [facility] Start: 1989 Screening for malign ant neoplasm of cervix [facility] Start: 1987 Hepatitis B Vaccine (1 of 3 - 19+ 3-dose series) Hepatitis B Vaccine (1 of 3 - 19+ 3-dose series) [facility] Start: 1986 Anxiety Screening Anxiety Screening [facility] Start: 1986 Depression Screening Depression Scre ening [facility] Start: 1986 HIV SCREENING HIV SCREENING [facility] Start: 1986 HIV screening HIV Screening [facility] Start: 1968 HEPATITIS B (1 of 3 - 3-dose series) HEPATITIS B (1 of 3 - 3-dose series) [facility] Start: 1968 Hepatitis B Vaccine (1 of 3 - 3-dose series) Hepatitis B Vaccine (1 of 3 - 3-dose series) [facility] Start: 1968 Screening for malign ant neoplasm of colon [facility] End: 09-05-2024 EMG(NEURO/NI) EMG(NEURO/NI) EMG Routine Left arm weakness 1 Occurrences starting 09/06/2023 until 09/05/[address] [facility] Work Phone: Comment on above: 1 Occurrences starti ng 09/06/2023 until 09/05/2024 IMMUNOGLOBULINS KESHAWN IMMUNOGLOBUL INS KESHAWN Lab Routine Multiple sclerosis, relapsing-remitting (HCC) 09/18/2021 8:36 AM EDT [facility] Work Phone: End: 11-16-2023 ALIYA SCREENING ALIYA SCREENING Radiology Routine Encounter for screening mammogram for breast cancer 1 Occurrences starting 10/17/2022 until 11/16/[address] [facility] Work Phone: Comment on above: 1 Occurrences starti ng 10/17/2022 until 11/16/2023 End: 08-14-2024 MR Brain WO and W contrast IV MRI BRAIN WO/W IVCON Radiology Routine Multiple sclerosis (HCC) 1 Occurrences starting 07/16/2023 until 08/14/[address] [facility] Work Phone: Comment on above: 1 Occurrences starti ng 07/16/2023 until 08/14/2024 End: 10-05-2024 MR Cervical spine WO contrast MRI CERVICAL SPINE WO IVCON Radiology Routine Left arm weakness 1 Occurrences starting 09/06/2023 until 10/05/[address] [facility] Work Phone: Comment on above: 1 Occurrences starti ng 09/06/2023 until 10/05/2024 End: 10-15-2022 Mri brain brain stem w/o w/contrast material MRI BRAIN WO/W IVCON Radiology Routine Multiple sclerosis, relapsing-remitting (HCC) 1 Occurrences starting 09/15/2021 until 10/15/[address] [facility] Work Phone: Comment on above: 1 Occurrences starti ng 09/15/2021 until 10/15/2022 End: 12-14-2022 Mri brain brain stem w/o w/contrast material MRI BRAIN WO/W IVCON Radiology Routine Multiple sclerosis, relapsing-remitting (HCC) 1 Occurrences starting 11/14/2021 until 12/14/[address] [facility] Work Phone: Comment on above: 1 Occurrences starti ng 11/14/2021 until 12/14/2022 End: 09-29-2023 Mri brain brain stem w/o w/contrast material MRI BRAIN WO/W IVCON Radiology Routine Multiple sclerosis, relapsing-remitting (HCC) 1 Occurrences starting 08/30/2022 until 09/29/[address] [facility] Work Phone: Comment on above: 1 Occurrences starti ng 08/30/2022 until 09/29/2023 End: 09-29-2023 Mri spinal canal cervical w/o & w/contr matrl MRI CERVICAL SPINE WO/W IVCON Radiology Routine Multiple sclerosis, relapsing-remitting (HCC) 1 Occurrences starting 08/30/2022 until 09/29/[address] [facility] Work Phone: Comment on above: 1 Occurrences starti ng 08/30/2022 until 09/29/2023 OT PLAN OF CARE CERTIFICATION OT PLAN OF CARE CERTIFICATION Procedures Routine Multiple sclerosis, relapsing-remitting (HCC) Ordered: 01/16/[address] [facility] Work Phone: Comment on above: Ordered: 01/16/2022 Patient Education Hemorrhoids (D C) Diverticulosis (DC) Colon Polypectomy (DC) [facility] Work Phone: End: 12-15-2022 Screening mammography bi 2-view breast inc cad ALIYA SCREENING Radiology Routine Encounter for screening mammogram for breast cancer 1 Occurrences starting 11/15/2021 until 12/15/[address] [facility] Work Phone: Comment on above: 1 Occurrences starti ng 11/15/2021 until 12/15/2022 End: 10-05-2024 XR CERV OTHER 4V AP/LAT/FLX/EXT XR CERV OTHER 4V AP/LAT/FLX/EXT Radiology Routine Left arm weakness 1 Occurrences starting 09/06/2023 until 10/05/[address] [facility] Work Phone: Comment on above: 1 Occurrences starti ng 09/06/2023 until 10/05/2024 [facility] Immunizations Immunization Date Immunization Notes Care Provider [facility] 03-05-2024 Influenza, injectabl e, Madin Diane Canine Kidney, preservative free, quadrivalent Kristin Basil TAX SENIOR ASSOCIATE Work Phone: [facility] 05-02-2023 influenza, intraderm al, quadrivalent, preservative free, injectable Shaikh Jonn BENITEZ Work Phone: [facility] 05-02-2023 influenza virus vacc ine, unspecified formulation Sarthak Escobar MD, PhD Work Phone: [facility] 04-30-2023 influenza, seasonal, injectable Shaikh Jonn BENITEZ Work Phone: [facility] 03-07-2022 influenza, high dose seasonal, preservative-free Shaikh Jonn BENITEZ Work Phone: [facility] 03-07-2022 influenza virus vacc ine, unspecified formulation Jessica Clarke PA-C Work Phone: [facility] 05-18-2021 COVID-19 mRNA-1273 (Moderna) Services [facility] Work Phone: [facility] 07-28-2020 Ilia and Ilia COVID 19 Vaccine [facility] Comment on above: Note: Patient tolera jonah well. No signs or symptoms of adverse reactions. Patient waited a minimum of 15 minutes. 04-08-2020 influenza, injectabl e, quadrivalent, preservative free Jessica Young PA-C Work Phone: [facility] 03-20-2019 influenza, injectabl e, quadrivalent, preservative free Jessica Young PA-C Work Phone: [facility] 06-05-2018 influenza, injectabl e, quadrivalent, preservative free Jessica Young PA-C Work Phone: [facility] 02-27-2017 influenza, injectabl e, quadrivalent, preservative free Jessica Young PA-C Work Phone: [facility] 10-02-2016 pneumococcal polysaccharide vaccine, 23 valent Jessica Young PA-C Work Phone: [facility] 10-02-2016 tetanus toxoid, redu maury diphtheria toxoid, and acellular pertussis vaccine, adsorbed Jessica Young PA-C Work Phone: [facility] 04-03-2016 influenza, injectabl e, quadrivalent, preservative free Jessica Young PA-C Work Phone: [facility] 03-19-2015 influenza, high dose seasonal, preservative-free Jessica Young PA-C Work Phone: [facility] 03-19-2015 influenza, injectabl e, quadrivalent, preservative free Eliazar Brooks DO Work Phone: [facility] 04-27-2014 influenza, high dose seasonal, preservative-free Jessica Young PA-C Work Phone: [facility] 04-27-2014 influenza, injectabl e, quadrivalent, preservative free Eliazar Brooks DO Work Phone: [facility] Healthcare Payers Date Payer Category Payer Medicare [id number] 2023 Medicare (Managed Care) [id number] 2023 Medicare [id number] 2022 Medicare [id number] 2020 Medicaid [facility] MEDICAID [facility] COMM[employer] PLAN MEDICAID [id number] 2020-Present [phone] [address] [place] [address] Medicaid [id number] 2020 Medicaid [id number] 1968 Unknown [id number] 1968 Unknown [id number] 1968 Unknown [id number] 1968 Unknown [id number] 1968 Unknown [id number] 1968 Unknown [id number] 1968 Unknown [id number] 2.16.840.1.839519.3.579.2. 727 1970 Unknown [id number] 2.16.840.1.022562.3.579.2. 727 1970 Unknown [id number] 2.16.840.1.878903.3.579.2. 1259 1970 Unknown [id number] 2.16.840.1.551569.3.579.2. 1258 1970 Unknown [id number] 2.16.840.1.210686.3.579.2. 1258 1970 Unknown [id number] 2.16.840.1.973748.3.579.2. 1258 1970 Unknown [id number] 2.16.840.1.490429.3.579.2. 1258 1970 Unknown [id number] 2.16.840.1.425919.3.579.2. 1258 1970 Unknown [id number] 2.16.840.1.607214.3.579.2. 1258 1968 Unknown [id number] 2.16.840.1.810762.3.579.2. 1258 1968 Unknown [id number] 2.16.840.1.724949.3.579.2. 1258 1968 Unknown [id number] 2.16.840.1.586631.3.579.2. 1258 1968 Unknown [id number] 2.16.840.1.750607.3.579.2. 1258 1968 Unknown [id number] 2.16.840.1.261843.3.579.2. 1258 1968 Unknown [id number] 2.16.840.1.770639.3.579.2. 1258 1968 Unknown [id number] 2.16.840.1.081754.3.579.2. 1258 1968 Unknown [id number] 2.16.840.1.827901.3.579.2. 1258 1968 Unknown [id number] 2.16.840.1.876972.3.579.2. 1258 1968 Unknown [id number] 2.16.840.1.554197.3.579.2. 1258 1968 Unknown [id number] 2.16.840.1.938038.3.579.2. 1259 1968 Unknown [id number] 2.16.840.1.081752.3.579.2. 9 1970 Unknown [id number] 2.16.840.1.096908.3.579.2. 9 1968 Unknown [id number] 2.16.840.1.609957.3.579.2. 1258 1968 Unknown [id number] 2.16.840.1.511753.3.579.2. 9 1968 Unknown [id number] 2.16.840.1.912055.3.579.2. 1258 1968 Unknown [id number] 2.16.840.1.612003.3.579.2. 9 1968 Unknown [id number] 2.16.840.1.227694.3.579.2. 9 1961 Private Health Insurance [id number] 1961 Unknown [id number] Medicare [id number] Self-pay [id number] 2.16.840.1.221093.3.140.1. 38630.5.4 Self-pay Self Pay [id number] Unknown Self Pay [id number] Social History Date Type Detail Facility Tobacco smoking status Unknown if ever [facility] Last Size [facility] Work Phone: Start: 1970 Sex Assigned At Female F [facility] Start: 09-05-2021 End: 11-13-2023 Tobacco smoking status NHIS Ex-smoker (finding) [facility] Start: 12-13-1996 End: 12-13-2016 History of tobacco use Current smoker [facility] Start: 12-13-1996 End: 12-13-2016 History of tobacco use Cigarette Smoker [facility] Start: 12-06-2017 End: 06-04-2023 Cigarettes smoked current (pack per day) - Reported 1 [facility] Start: 12-06-2017 End: 11-13-2023 Tobacco use and exposure Smokeless tobacco non-user [facility] Start: 11-01-2020 End: 07-10-2023 Alcohol intake Current drinker of alcohol (finding) [facility] Start: 08-02-2020 History SDOH Alcohol Frequency 2 [facility] Start: 08-02-2020 History SDOH Alcohol Std Drinks 3 [facility] Start: 08-08-2012 History SDOH Alcohol Comment rare [facility] Start: 08-02-2020 History SDOH Social Connections Get Together 1 [facility] Start: 08-02-2020 History SDOH Physica l Activity DPW 0 [facility] Start: 08-02-2020 History SDOH Stress 5 [facility] Start: 08-02-2020 History SDOH Financial 4 [facility] Start: 08-02-2020 Education 8 [facility] Start: 08-08-2012 End: 03-22-2022 Tobacco Comment plans to try to quit at some point but not ready. [facility] Start: 09-08-2021 End: 03-22-2022 Exposure to SARS-CoV-2 (event) Not sure [facility] Start: 08-02-2020 End: 06-04-2023 Sex Assigned At [facility] Do you belong to any clubs or organizations such as holiness groups, unions, fraternal or athletic groups, or school groups? No [facility] Are you now , , , , never or living with a partner? [facility] How often to you hav e a drink containing alcohol? Monthly or less [facility] How many standard dr inks containing alcohol do you have on a typical day? 5 or 6 [facility] How often do you hav e 6 or more drinks on 1 occasion? Less than monthly [facility] How hard is it for y ou to pay for the very basics like food, housing, medical care, and heating Not very hard [facility] Start: 06-04-2023 Adult Depression Screening Assessment [address] [place] [address] Do you feel stress - tense, restless, nervous, or anxious, or unable to sleep at night because your mind is troubled all the time - these days [OSQ] Very much [facility] (I/We) worried wheth er (my/our) food would run out before (I/we) got money to buy more. Sometimes true [facility] Start: 08-02-2020 Gender identity Identifies as female gender (finding) [facility] Start: 08-02-2020 Sexual orientation Heterosexual (rosa ever) [facility] Start: 06-05-2023 End: 08-18-2024 Alcohol intake Ex-drinker [...] use Passive smoker [facility] Comment on above: States smokes 1 PPD Tobacco smoking status No Smokin g Status Entered [facility] Medical Equipment Procedure Code Equipment Code Equipment Origin al Text Equipment Identifier Dates SHOULDER ARTHROS COPY W/ POSSIBLE REPAIR Eliazar Brooks DO 02/10/24 Non Biological Shoulder L {[id number]{1 [id number]{[id number] [facility] Start: 02-10-2024 Goals Date Patient Goal Desired [...] Date Abnormal CBC 07/30/2023 Anxiety and depression ([facility]) Carpal tunnel syndrome 2002 Chronic diarrhea Chronic shoulder pain 05/01/2023 Class 3 severe obesity without serious comorbidity with body mass index (BMI) of 45.0 to 49.9 in adult ([facility]) 04/30/2023 Constipation Depression ([facility]) Hot flashes 07/30/2023 Hyperlipidemia, acquired ([facility]) 07/30/2023 Hypertension ([facility]) Knee pain, left anterior Major depression ([facility]) Morbid obesity with BMI of 40.0-44.9, adult ([facility]) Multiple sclerosis ([facility]) Night sweats 07/30/2023 LORENZO (obstructive sleep apnea) 07/30/2023 Pain of left middle finger Primary insomnia Rash Rectal burning Right knee pain, unspecified chronicity Sinusitis Stroke ([facility]) 07/30/2023 Urinary incontinence in female Vaginal discharge Vitamin D deficiency Past Surgical History: Procedure Laterality Date CARPAL TUNNEL RELEASE Right 2004 ECTOPIC SURGERY HYSTERECTOMY 1991 SHOULDER SURGERY Left 02/10/2024 Arthroscopy, RCR @ [facility] w/ MTP TUBAL LIGATION 1990 family history [...] and sugary drinks. documented in this encounter [facility] 08-18-2024 Instructions Kristin Gracia NP - 08/18/2024 9:20 AM EDT Cont escitalopram 10mg daily, as well as the aripriazole 10mg daily Increase the buspirone from 5mg , to 7.5mg and you can take this every 8 hour NEEDED for anxiety We will add the mirtazipine for sleep I will refer you to [facility] in [place], they should call you documented in this encounter [facility] 08-03-2024 Telephone encounter Note Patient needs to reschedule appointment she missed today. She is [place] patient and was scheduled with [facility]. [facility] follow up visits are 30 minutes and new patients 40 minutes. This would be follow up visit. [facility] Work Phone: 08-03-2024 Miscellaneous Notes Patient needs to reschedule appointment she missed today. She is [place] patient and was scheduled with [facility]. [facility] follow up visits are 30 minutes and new patients 40 minutes. This would be follow up visit. documented in this encounter [facility] 06-17-2024 History of Presen t illness Narrative [...] 10 MG tablet documented in this encounter [facility] 06-17-2024 Instructions Sherrie Boone NP - 06/17/2024 [...] Date Abnormal CBC 07/30/2023 Anxiety and depression ([facility]) Carpal tunnel syndrome 2002 Chronic diarrhea Chronic shoulder pain 05/01/2023 Class 3 severe obesity without serious comorbidity with body mass index (BMI) of 45.0 to 49.9 in adult ([facility]) 04/30/2023 Constipation Depression ([facility]) Hot flashes 07/30/2023 Hyperlipidemia, acquired ([facility]) 07/30/2023 Hypertension ([facility]) Knee pain, left anterior Major depression ([facility]) Morbid obesity with BMI of 40.0-44.9, adult ([facility]) Multiple sclerosis ([facility]) Night sweats 07/30/2023 LORENZO (obstructive sleep apnea) 07/30/2023 Pain of left middle finger Primary insomnia Rash Rectal burning Right knee pain, unspecified chronicity Sinusitis Stroke ([facility]) 07/30/2023 Urinary incontinence in female Vaginal discharge Vitamin D deficiency Past Surgical History: Procedure Laterality Date CARPAL TUNNEL RELEASE Right 2004 ECTOPIC SURGERY HYSTERECTOMY 1991 SHOULDER SURGERY Left 02/10/2024 Arthroscopy, RCR @ [facility] w/ MTP TUBAL LIGATION 1990 family history [...] neurology and treatment documented in this encounter [facility] 05-18-2024 Instructions Kristin Gracia NP - 05/18/2024 9:20 AM EST Keep escitalopram at 10mg, add ariprazole 5mg daily, add buspar 5mg twice a day for anxiety Follow up appt in 4 weeks Need mammogram-I will fax order to [facility] documented in this encounter [facility] 05-04-2024 Telephone encounter Note Per Aria Agrawal, PT, she advises to notify Yamilka and inform due to ongoing neck pain we'd be able to cx Eval that is scheduled tomorrow. Though note w/ the date range post shoulder we'll keep referral open and to contact if neck pain may reside and willing to partake PT for shoulder. She noted the recommendation. [facility] 05-04-2024 Miscellaneous Notes Per Aria Agrawal, PT, [...] notify if requested. documented in this encounter [facility] 05-04-2024 Telephone encounter Note She called noting she has been having severe neck pain which results in 3 bulging discs in her neck; she has an appt w/ Oren Chinchilla 08/11/24. Due to severity of pain she feels PT addressing her shoulder would be useless beginning tomorrow. She cx; I noted I would inform PT and notify if requested. [facility] 04-27-2024 History of Presen t illness Narrative [...] to verify the correct patient, procedure, equipment, phlebotomy support tech and site/side marked as required. Patient was [...] for breakthrough discomfort. documented in this encounter [facility] 04-27-2024 Instructions MARCELLE Perea - 04/27/2024 9:00 [...] for breakthrough discomfort. documented in this encounter [facility] 04-27-2024 Telephone encounter Note Please call to schedule pt a fu appt in the next month [place] [facility] 04-27-2024 Miscellaneous Notes Please call to schedule pt a fu appt in the next month [place] documented in this encounter [facility] 03-09-2024 Telephone encounter Note Patient stated she [...] ass she's doing it and hung up. [facility] 03-09-2024 Miscellaneous Notes Patient stated she has [...] and hung up. documented in this encounter [facility] 03-05-2024 History of Presen t illness Narrative [...] hours as needed for shoulder surgical pain., [employer] #[id number], 167.7, cm, 02/05/24 11:09:00 EDT, [...] Date Abnormal CBC 07/30/2023 Anxiety and depression ([facility]) Carpal tunnel syndrome 2002 Chronic diarrhea Chronic shoulder pain 05/01/2023 Class 3 severe obesity without serious comorbidity with body mass index (BMI) of 45.0 to 49.9 in adult ([facility]) 04/30/2023 Constipation Depression ([facility]) Hot flashes 07/30/2023 Hyperlipidemia, acquired ([facility]) 07/30/2023 Hypertension ([facility]) Knee pain, left anterior Major depression ([facility]) Morbid obesity with BMI of 40.0-44.9, adult ([facility]) Multiple sclerosis ([facility]) Night sweats 07/30/2023 LORENZO (obstructive sleep apnea) 07/30/2023 Pain of left middle finger Primary insomnia Rash Rectal burning Right knee pain, unspecified chronicity Sinusitis Stroke ([facility]) 07/30/2023 Urinary incontinence in female Vaginal discharge Vitamin D deficiency Past Surgical History: Procedure Laterality Date CARPAL TUNNEL RELEASE Right 2005 ECTOPIC SURGERY HYSTERECTOMY 1991 SHOULDER SURGERY Left 02/10/2024 Arthroscopy, RCR @ [facility] w/ MTP TUBAL LIGATION 1990 family history [...] Relevant Orders Flu vaccine, MDCK, quadrivalent, PF ([id number]) (Flucelvax single dose syringe) Candidiasis of skin D/t her arm being in a sling, she is requesting we use nystatin powder as cream and ointment is not something she can properly use at this time Relevant Medications nystatin (Mycostatin) 094177 UNIT/GM powder documented in this encounter [facility] 02-25-2024 History of Presen t illness Narrative [...] for 2 more weeks. PT was sent [facility]'s Nitish large RC repair protocol. F/U will be in 2 months, prn if doing well. All questions answered. documented in this encounter [facility] 02-14-2024 Telephone encounter Note MTP- PO Lt [...] you please call patient and inform her. [facility] 02-14-2024 Miscellaneous Notes MTP- PO Lt shoulder [...] and inform her. documented in this encounter [facility] 02-13-2024 Telephone encounter Note Was wanting to know if she could stop taking the percocet, pain isn't that bad and she was wanting to take her trazodone. [facility] 02-13-2024 Miscellaneous Notes Was wanting to know if she could stop taking the percocet, pain isn't that bad and she was wanting to take her trazodone. documented in this encounter [facility] 02-10-2024 Hospital Discharg e instructions Patient Education 02/10/2024 15:39:49 Shoulder Cryocuff Patient Instructions - FT (CUSTOM) 02/10/2024 15:39:45 Post Op Patient Instructions - FT (CUSTOM) 02/06/2024 18:01:14 Brooks - After Your Shoulder Arthroscopy (Revised 06/17/14) (CUSTOM) [place], [place] [facility] AFTER YOUR SHOULDER ARTHROSCOPY [...] your appointment. Eliazar Brooks, DO [facility] [address] [place] [id number] Reviewed: 15 Follow Up Care 12/24/2023 11:37:06 With:YUE aSntamaria Address: [address] [place] [address]- Business (1) When:02/25/2024 14:30:00 Comments:Keep scheduled appointmentCall for any problems. [facility] 02-10-2024 Note Progress Note-Physic nakul Patient: YAMILKA VASQUEZ Age: 53 years Sex: Female : 1970 Associated Diagnoses: None Author: Mynor Enriquez MD Postoperative Information Postoperative disposition: Postoperative disposition: To PACU. Optimetrix number: Optimetrix number [id number]. Anesthetic utilized: General. Regional: Interscalene Block. Health [...] when meets criteria ( To home ). [facility] Comment on above: Result Comment: Elec tronically Signed By: Mynor Enriquez MD\.br\Date and Time Signed: 02/10/24 16:19 EDT 02-10-2024 Note Patient Education - Text [place], [place] [facility] AFTER YOUR SHOULDER ARTHROSCOPY [...] your appointment. Eliazar Brooks, DO [facility] [address] [place] [address] Reviewed: 06-03 [facility] 02-10-2024 Evaluation + Plan note Extrac jonah from: Title:ANES Post-operative Note---General Author: Mynor Enriquez MD. Date:02/10/24 Plan Transfer/Discharge: Transfer/Discharge Discharge when meets criteria ( To home ). Extracted from: Title:ANES Pre-operative Note 2022 Author:Mynor Young. Date:02/10/24 Plan [place] [employer] (ASA) physical status classification: Class III. Anesthetic Preoperative Plan: Anesthesia General, and LMA. Regional Interscalene block. [facility] 09-23-2024 NoteProgress Note-Physician Patient: YAMILKA VASQUEZ [...] hours as needed for shoulder surgical pain., [employer] #72, 167.7, cm, 02/05/24 11:09:00 EDT, [...] mL/hr PRN: (12) acetaminophen-oxyC (more content not included)...[facility] Comment on above:Result Comment: Electronically Signed By: Mina BENITEZ, Mynor Markham\.br\Date and Time Signed: 02/10/24 13:21 [id number] History of Present illness Narrative* Kristin Gracia [...] Oral, 2 times daily, Take with food Nqttozg-Wiachsbvjwc-Buurgflzcu ([employer]) 160-9-4.8 MCG/ACT aerosol 2 puffs, [...] Date Abnormal CBC 07/30/2023 Anxiety and depression ([facility]) Carpal tunnel syndrome 2002 Chronic diarrhea Chronic shoulder pain 05/01/2023 Class 3 severe obesity without serious comorbidity with body mass index (BMI) of 45.0 to 49.9 in adult ([facility]) 04/30/2023 Constipation Depression ([facility]) Hot flashes 07/30/2023 Hyperlipidemia, acquired ([facility]) 07/30/2023 Hypertension ([facility]) Knee pain, left anterior Major depression ([facility]) Morbid obesity with BMI of 40.0-44.9, adult ([facility]) Multiple sclerosis ([facility]) Night sweats 07/30/2023 LORENZO (obstructive sleep apnea) 07/30/2023 Pain of left middle finger Primary insomnia Rash Rectal burning Right knee pain, unspecified chronicity Sinusitis Stroke ([facility]) 07/30/2023 Urinary incontinence in female [...] (BMI) of 45.0 to 49.9 in adult ([facility]) Diverticulitis - Primary Fluids, atb, fu if not better If any fever, chills or worsening in symptoms go to ER Relevant Medications amoxicillin-clavulanate (Augmentin) 875-125 MG tablet documented in this encounterMadison Medical [id number] History of Present illness Narrative* Renuka Bui [...] (BMI) of 45.0 to 49.9 in adult ([facility]) 04/30/2023 Constipation Depression ([facility]) Hot flashes 07/30/2023 Hyperlipidemia, acquired ([facility]) 07/30/2023 Hypertension ([facility]) Knee pain, left anterior Major depression ([facility]) Morbid obesity with BMI of 40.0-44.9, adult ([facility]) Multiple sclerosis ([facility]) Night sweats 07/30/2023 LORENZO (obstructive sleep apnea) 07/30/2023 Pain of left middle finger Primary insomnia Rash Rectal burning Right knee pain, unspecified chronicity Sinusitis Stroke ([facility]) 07/30/2023 Urinary incontinence in [...] 2 puffs, Inhalation, Every 6 hours PRN Grtofxa-Stinpezfzvc-Ixsgazzoei ([employer]) 160-9-4.8 MCG/ACT aerosol 2 puffs, [...] shoulder. Eliazar Brooks D.O. documented in this encounterMadison Medical [id number] Telephone encounter Note* Telephone Encounter - Michelle Haines - 01/17/2024 12:20 PM EDT Called patient back to let her know that Jessica's preference is for the patient to remain at [facility] ifshe is to order the medication. Patient said she would establish care with local neurologist. [facility]08-30-2024 Miscellaneous Notes* Telephone Encounter - Michelle Haines [...] patient: Self Return call phone number : [phone] Reason for call : Other : Brief description of concern :Please fax infusion orders to [phone] [facility]. [facility] Telephone encounter Note * Telephone Encounter - Miri Soni - 01/14/2024 2:09 PM EDT Kriss Call Name of caller : Yamilka Vasquez Relationship to patient: Self Return call phone number : [phone] Reason for call : Other : Brief description of concern :Please fax infusion orders to [phone] [facility]. [facility] Work Phone: 1(449) 956-805908-01-2024 Telephone encounter Note* Telephone Encounter - She [...] to call if she changes her mind. [facility]08-01-2024 Miscellaneous Notes* Telephone Encounter - She Healy [...] she changes her mind. documented in [facility]04-19-2024 NoteHNO ID: [id number] Author: KATERIN MCCOY PA-C Service: ? Author Type: Physician Healthcare Facility Administrator Type: Progress Notes Filed: 09/06/2023 10:11 Note Text: SPINE SURGERY OUTPATIENT CONSULT This is a virtual visit using [employer] Zoom Video Visit. It required patient-provider interaction for the medical decision making as documented below. I have communicated my name and active licensure. The patient's identity and physical location were verified at the time of this visit. Either the patient or their legal product support representative has been informed of the risks and benefits of -- and alternatives to -- treatment through a remote evaluation and consents to proceed with the evaluation remotely. SERVICE DATE: 09/06/2023 PCP: Valdez Acosta MD REFERRING PROVIDER: Jessica Clarke [facility]0 Jessica العراقي [facility] [id number] Consult requested for an opinion regarding the [...] in the past as well. Works with [employer] for her MS. Saw an outside orthopedic [...] Function Percentile 7 1 (more content not included)...[facility]04-19-2024 History of Present illness Narrative* Katerin Mccoy PA-C - 09/06/2023 9:41 AM EDT SPINE SURGERY OUTPATIENT CONSULT This is a virtual visit using [employer] Zoom Video Visit. It required patient- provider interaction for the medical decision making as documented below. I have communicated my name and active licensure. The patient's identity and physical location wereverified at the time of this visit. Either the patient or their legal product support representative has been informed of the risks and benefits of -- and alternatives to -- treatment through a remote evaluation andconsents to proceed with the evaluation remotely. SERVICE DATE: 09/06/2023 PCP: Valdez Acosta MD REFERRING PROVIDER: Jessica Clarke [address] [facility] [address] Consult requested for an opinion regarding the [...] in the past as well. Works with [employer] for her MS. Saw an outside orthopedic [...] DATA REVIEW [facility] records independently reviewed ASSESSMENT/PLAN (R23.847) Left arm weakness (primary encounter diagnosis) Virtual [...] TIME: 9:41 AM PAGER: documented in this encounterV[facility]04-09-2024 NoteHNO ID: [id number] Author: ANISHA SANCHEZ PA-C Service: ? Author Type: Physician Healthcare Facility Administrator Type: Progress Notes Filed: 08/27/2023 11:37 Note [...] from ongoing conservative management. BMI 47.78 [facility] History of Present illness Narrative* Anisha Sanchez [...] Vasquez Are you being referred by a [place] for Spine Health Provider or Pain Management Provider at [facility]? No If answer is YES please [...] facility where the MRI/CT/myelogram was completed: [facility] [place] Address: [address] [place] [address] MRI/CT/myelogram viewable in [facility]: Yes If not, please provide [phone] to fax in imaging reports for review. [...] where the surgery was completed: Additional Comments [phone] (Home Phone) documented in this encounterVeterans Health Administration04-04-2024 NoteHNO ID: [id number] Author: ?, ?, ? Service: ? Author Type: ? Type: Progress Notes Filed: 08/27/2023 11:37 Note Text: Patient name: Yamilka Vasquez Are you being referred by a [facility] Spine Health Provider or Pain Management Provider at [facility]? No If answer is YES please [...] the MRI/CT/myelogram was completed: [facility] [place] Address: [address] [place] [address] MRI/CT/myelogram viewable in Epic: Yes If not, please provide [phone] to fax in imaging reports for review. [...] where the surgery was completed: Additional Comments [phone] (Home Phone)[facility]04-03-2024 Miscellaneous Notes* Telephone Encounter - Renuka Ellison - 08/21/2023 4:17 PM EDT Kriss Call Name of caller : Yamilka Vasquez Relationship to patient: Self Return call phone number : [phone] Reason for call : Other : Brief [...] call to discuss further. documented in this encounterVeterans Health Administration02-28-2024 Miscellaneous Notes* Telephone Encounter - Elizabeth Victoria RN - 07/17/2023 9:04 AM EST Called patient, no answer. Message left indicating [employer] message would be sent with reason for [...] since c-spine MRI was completed locally outside [facility] in April. Orders already placed * Telephone Encounter - Anjelica Alba - 07/15/2023 3:18 PM EST Kriss Call Name of caller : Steffanie Relationship to patient: Caregiver Return call phone number : appointments Reason for call : Order for MRI needed for Brain and Cervical documented in this encounterVeterans Health Administration02-21-2024 History of Present illness Narrative* Paris Toledo DO - 07/10/2023 6:00 PM EST [place] [facility] Initial Evaluation July 10, 2023 This appointment was requested by Jessica Clarke PA-C, for my medical opinion regarding the evaluation and management of the patient's Yamilka F Lonz problems, and my final recommendations will be communicated to the requesting health care provider by way of the shared medical record for internal providers or letter via the [employer] for external providers. SUBJECTIVE: Yamilka Vasquez a 53 year old [facility], accompanied by self only, [...] (MS) PT several years ago (+) relief [facility] Alcohol Abuse - No Drug [...] No history of dysuria, frequency or incontinence NEWSCAST DIRECTOR: Negative for abnormal vaginal bleeding, abnormal vaginal [...] supervised home exercise program (HEP): No 5. Blending Machine Operator: No Passive conservative therapy lasting 6 weeks [...] which included preparing to see the patient, alhs-fp-irov patient care, completing clinical documentation, performing a medically appropriate examination, counseling and educating the patient/family/caregiver, ordering medications, tests, or p rocedures, and communicating with other HCPs (not separately reported). Paris Toledo DO July 10, 2023 documented in this encounterVeterans Health Administration02-21-2024 NoteHNO ID: [id number] Author: PARIS TOLEDO DO Service: ? Author Type: Physician Type: Progress Notes Filed: 07/12/2023 11:26 Note Text: [place] [facility] Initial Evaluation July 10, 2023 This appointment was requested by Jessica Clarke PA-C, for my medical opinion regarding the evaluation and management of the patient's Yamilka Vasquez problems, and my final recommendations will be communicated to the requesting health care provider by way of the shared medical record for internal providers or letter via the [employer] Postal Service for external providers. SUBJECTIVE: Yamilka Vasquez a 53 year old [facility], accompanied by self only, [...] (MS) PT several years ago (+) relief [facility] Alcohol Abuse - No Drug [...] No history of dysuria, frequency or incontinence NEWSCAST DIRECTOR: Negative for abnormal vaginal bleeding, abnormal vaginal discharge MUSCULOSKELETAL: Negative for joint pain or swelling, back pain or muscle pain. NEUROLOGIC:Negative for focal numbness or weakness, headaches and dizziness or syncope. SKIN:Negative for lesions, rash, and itching. PSYCHIATRIC: Negative for sleep disturbance, mood disorder and recent psychosocial stressors. [place] (more content not included)...[facility]02-07-2024 History of Present illness Narrative* Shaikh Jonn [...] 12:24 PM ESTAssociated Problem(s): COPD with exacerbation ([facility]) Patient reports cough, SOB, wheezing, [...] 8 weeks (around 08/21/2023). documented in this encounterMadison Medical [id number] NoteHNO ID: [id number] Author: She Brand RN Service: ? Author [...] ; pt states she had her tubes tied.[facility]12-14-2023 History of Present illness Narrative* Jessica Clarke PA-C - 05/02/2023 7:30 AM EST Images from the original note were not included. [facility] MULTIPLE SCLEROSIS FOLLOWUP/ESTABLISHED PATIENT VIRTUAL [...] visit. Either the patient or their legal product support representative has been informed of the risks [...] intake documentation Neuro-QoL Functions (higher=better functioning) Flowsheet [facility] Office Visit from 03/22/2022 in [facility] Office Visit from 11/14/2021 in [facility] from 09/15/2021 in [facility] Upper Extremity Domain T Score 32.58 -- 34 Lower Extremity Domain T Score 36.57 -- 37 Cognitive Function Domain T Score 38.32 39 41 Positive Affect Well Being T Score -- -- -- Ability To Participate In Social Roles T Score 29.36 39 43 Satisfaction With Social Roles T Score 40.46 -- 36 Neuro-QoL Symptoms (higher=worse symptoms) Flowsheet [facility] Office Visit from 03/22/2022 in [facility] Office Visit from 11/14/2021 in [facility] from 09/15/2021 in [facility] Sleep Domain T Score 61.04 -- 64 [...] which included preparing to see the patient, wecy-zs-sczm patient care, completing clinical documentation, obtaining and/or reviewing separately obtained history, counseling and educating the patient/family/caregiver, ordering medications, manuel ts, or procedures, communicating with other HCPs (not separately reported), and communicating results to the patient/family/caregiver. The patient was discussed with Dr. Escobar prior to appointment. Jessica Clarke PA-C documented in this encounterVeterans Health Administration12-14-2023 NoteHNO ID: [id number] Author: Jessica Clarke PA-C Service: ? Author Type: Physician Healthcare Facility Administrator Type: Progress Notes Filed: 05/02/2023 5:39 PM Note Text: [facility] FOR MULTIPLE SCLEROSIS FOLLOWUP/ESTABLISHED PATIENT VIRTUAL [...] visit. Either the patient or their legal product support representative has been informed of the risks [...] intake documentation Neuro-QoL Functions (higher=better functioning) Flowsheet [facility] Office Visit from 03/22/2022 in [facility] Office Visit from 11/14/2021 in [facility] from 09/15/2021 in [facility] Upper Extremity Domain T Score 32.58 -- 34 Lower Extremity Domain T Score 36.57 -- 37 Cognitive Function Domain T Score 38.32 39 41 Positive Affect Well Being T Score -- -- -- Ability To Participate In Social Roles T Score 29.36 39 43 Satisfaction With Social Roles T Score 40.46 -- 36 Neuro-QoL Symptoms (higher=worse symptoms) Flowsheet [facility] Office Visit from 03/22/2022 in [facility] Office Visit from 11/14/2021 in [facility] from 09/15/2021 in [facility] Sleep Domain T Score 61.04 -- 64 [...] spent a total of (more content not included)...[facility] 04-18-2022 Evaluation note* Encounter Date Diagnosis Assessment Notes Treatment Notes Treatment Clinical Notes Mar, Change in bowel function (ICD-10 - R19.4) CONTINUE METAMUCIL DIRECTED RTO 1 YR [employer] Other 11-11-2022 Miscellaneous Notes* Telephone Encounter - Lily Rich Pss - 03/30/2022 2:06 PM EST Patient is calling today and would like to inform that she has a new PCP. Would like to ask that Dr Acosta be removed. She now sees a Dr Kristin Arteaga in [place]. Any questions please call patient at [phone] documented in this encounterVeterans Health Administration11-03-2022 History of Present illness Narrative* Jessica Clarke PA-C - 03/22/2022 12:40 PM EDT Images from the original note were not included. [facility] MULTIPLE SCLEROSIS FOLLOWUP/ESTABLISHED PATIENT VISIT [...] ago and hands locked up when at [employer] (Mar 03) Trying to go for walks (uses cane) Has some new friends, which has been helpful Still gets frustrated with limitations SUBJECTIVE & REVIEW OF SYSTEMS: Neuro-QoL Functions (higher=better functioning) Flowsheet [facility] Office Visit from 03/22/2022 in [facility] Office Visit from 11/14/2021 in [facility] from 09/15/2021 in [facility] Upper Extremity Domain T Score 32.58 -- 34 Lower Extremity Domain T Score 36.57 -- 37 Cognitive Function Domain T Score 38.32 39 41 Positive Affect Well Being T Score -- -- -- Ability To Participate In Social Roles T Score 29.36 39 43 Satisfaction With Social Roles T Score 40.46 -- 36 Neuro-QoL Symptoms (higher=worse symptoms) Flowsheet [facility] Office Visit from 03/22/2022 in [facility] Office Visit from 11/14/2021 in [facility] from 09/15/2021 in [facility] Sleep Domain T Score 61.04 -- 64 Fatigue Domain T Score 58.38 -- 65 Anxiety Domain T Score 58.73 -- 61 Depression Domain T Score 60.06 58 60 Stigma Domain T Score 58.45 -- 57 Emotional Behavior Dyscontrol T Score -- -- -- *NeuroQoL is a multi-domain patient-reported quality of life questionnaire. PHQ-9 Flowsheet [facility] from 09/15/2021 in [facility] Office Visit from 11/01/2020 in [facility] PHQ-9 Score 11 16 *PHQ-9 is a questionnaire for depressive symptoms, with scores 0-4 indicating none, 5-9 mild, 10-14moderate, 15-19 moderately severe, and 20-27 severe symptoms. PROMIS-10 Flowsheet [facility] OT/PT/Speech Visit from 01/16/2022 in [facility] Occupational Therapy [facility] from 09/15/2021 in [facility] Global Physical Health T Score 32.4 32.4 [...] 5 Biceps 5 5 Triceps 5 5 School Library Media Program Director 5 5 Dorsal interossei 5 5 Lower [...] and Stretching Follow-up: In 6 months at [facility] I spent a total of 30 minutes on the date of the service which included preparing to see the patient, mhhu-uv-sbuk patient care, completing clinical documentation, obtaining and/or reviewing separately obtained history, performing a medically appropriate examination, counseling and educating the pat ient/family/caregiver, ordering medications, tests, or procedures, and communicating results to thepatient/family/caregiver. Jessica Clarke PA-C The chart was reviewed for possible participation in the following studies:None documented in this encounterVeterans Health Administration10-18-2022 History of Present illness Narrative* Lizbeth Blandon [...] Care Gap or Scheduling/Wellness visits Payer: Payor: [facility] MEDICAID / Plan: [facility] COMMUNITY PLAN MEDICAID OF [place] / Product [...] 06, 2022 4:06 PM documented in this encounterVeterans Health Administration09-26-2022 Miscellaneous Notes* Telephone Encounter - Jaycee Haley - 02/12/2022 9:08 AM EDT Called pt LVM to see about setting up pt and psycology. documented in this encounterVeterans Health Administration08-30-2022 History of Present illness Narrative* Jojo Pickard OTR/L - 01/16/2022 1:17 PM EDT [facility] NEURO FUNCTIONAL CAPACITY EVALUATION GENERAL RECORD INFORMATION CURRENT VISIT NUMBER: 1 of ONSET:09/15/2021 1st:01/16/2022ert Date:01/16/2022 THERAPISTS NAME: Jojo Pickard OTR/L INSURANCE TYPE: Payor: [facility] MEDICAID / Plan: [facility] COMMUNITY PLAN MEDICAID / Product Type: Medicaid [...] 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 in the past 10 years: 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; 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 [employer]; 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, [...] flexion 5/5 5/5 Wrist extension 5/5 5/5 School Library Media Program Director strength (Myriam position 2) 70 lbs 53 [...] object from floor: 4 = able to pickle solution maker object safely and easily Looking over shoulder: [...] test: Right 24.13, 23.06 seconds; CV = 0.18706% Left 22.41, 26.54 seconds; CV = 0.18090% Norms for a 51 year old female [...] 60 35 YES Valid YES Valid Right clinical program director best result: 80 lbs; percentile rank = 75 % Left clinical program director best result: 78 lbs; percentile rank = 90 % Tremors?: No Hand School Library Media Program Director Norms: MALE Percentile - lbs. 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 X Agree Disagree 2. In a [...] 8 units: 113-127 mins Physical Performance Test (81891) Skilled Intervention: Neurologically-based functional capacity evaluation specific to the diagnosisof Multiple Sclerosis. Proper administration and selection of physical performance test based on clinical presentation, deficits, and needs. Jojo Pickard OTR/L documented in this encounterVeterans Health Administration07-27-2022 Evaluation note* Encounter Date Diagnosis Assessment Notes Treatment Notes Treatment Clinical Notes Nov, Change in bowel function (ICD-10 - R19.8) ENCOURAGED METAMUCIL CAPSULES DAILY. Nov, Tubular adenoma (ICD-10 - D36.9) WILL REPEAT COLON IN 5 YEARS Nov, Diverticulosis (ICD-10 - K57.90) Nov, Hemorrhoids (ICD-10 - K64.9) [employer] Other 06-28-2022 History of Present illness Narrative* Sarthak Escobar MD, PhD - 11/14/2021 8:31 AM EDT Images from the original note were not included. [facility] FOR MULTIPLE SCLEROSIS FOLLOWUP/ESTABLISHED PATIENT VISIT [...] (higher=better functioning) Office Visit from 11/14/2021 in [facility] from 09/15/2021 in [facility] OfficeVisit from 11/01/2020 in [facility] Upper Extremity Domain T Score 34 30 Lower Extremity Domain T Score 37 40 Cognitive Function Domain T Score 39 41 36 Positive Affect Well Being T Score Ability To Participate In Social Roles T Score 39 43 46 Satisfaction With Social Roles T Score 36 39 Neuro-QoL Symptoms (higher=worse symptoms) Office Visit from 11/14/2021 in [facility] from 09/15/2021 in [facility] OfficeVisit from 11/01/2020 in [facility] Sleep Domain T Score 64 64 Fatigue Domain T Score 65 69 Anxiety Domain T Score 61 65 Depression Domain T Score 58 60 66 Stigma Domain T Score 57 63 Emotional Behavior Dyscontrol T Score *NeuroQoL is a multi-domain patient-reported quality of life questionnaire. PHQ-9 [facility] from 09/15/2021 in [facility] Office Visit from 11/01/2020 in [facility] PHQ-9 Score 11 16 *PHQ-9 is a questionnaire for depressive symptoms, with scores 0-4 indicating none, 5-9 mild, 10-14moderate, 15-19 moderately severe, and 20-27 severe symptoms. PROMIS-10 [facility] from 09/15/2021 in [facility] Office Visit from 11/01/2020 in [facility] Global Physical Health T Score 32.4 32.4 [...] 5 Biceps 5 5 Triceps 5 5 School Library Media Program Director 5 5 Dorsal interossei 5 5 Lower [...] Lymph 1.00 - 4.00 k/uL 0.60 (L) [place]% % 12.0 Abs [place] <0.87 k/uL 0.74 Eosin% % 2.4 Abs [...] 7T brain MRI in 3 months at [place]. Will hold next infusion until reviewing MRI. [...] and Stretching Follow-up: In 3 months at [place] with [facility] I spent a total of 40 minutes on the date of the service which included preparing to see the patient, ymox-vk-uoay patient care, completing clinical documentation, obtaining and/or reviewing separately obtained history, performing a medically appropriate examination, counseling and educating the pat ient/family/caregiver, ordering medications, tests, or procedures, independently interpreting results (not separately reported) and communicating results to the patient/family/caregiver. The patient was discussed with Dr. Escobar. Jessica Clarke PA-C [facility] STAFF PHYSICIAN NOTE OF PERSONAL INVOLVEMENT [...] Sarthak Escobar MD, PhD Associate Staff Neurologist [facility] for Multiple Sclerosis documented in this encounterVeterans Health Administration06-28-2022 History of Present illness Narrative* RT [place](R) [...] 2021 TIME: 7:43 AM documented in this encounterVeterans Health Administration04-29-2022 History of Present illness Narrative* Jessica Clarke PA-C - 09/15/2021 11:19 AM EDT Images from the original note were not included. 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 Asking about switching infusions to [facility] REVIEW OF SYSTEMS: Mood: PHQ9 responses reviewed and appear below Bladder: colonoscopy recently Pain:reviewed on nursing intake documentation Neuro-QoL Functions (higher=better functioning) Appointment from 09/15/2021 in [facility] Office Visit from 11/01/2020 in [facility] Office Visit from 07/31/2019 in [facility] Upper Extremity Domain T Score 34 30 41.73 Lower Extremity Domain T Score 37 40 41.61 Cognitive Function Domain T Score 41 36 45 Positive Affect Well Being T Score 40.79 Ability To Participate In Social Roles T Score 43 46 39.92 Satisfaction With Social Roles T Score 36 39 43.36 Neuro-QoL Symptoms (higher=worse symptoms) Appointment from 09/15/2021 in [facility] Office Visit from 11/01/2020 in [facility] Office Visit from 07/31/2019 in [facility] Sleep Domain T Score 64 64 64.93 [...] available 4. Consult OT - [facility] at [place] 5. Continue with PCP as planned I spent a total of 20 minutes on the date of the service which included preparing to see the patient, xaji-ql-xixo patient care, completing clinical documentation, obtaining and/or reviewing separately obtained history, counseling and educating the patient/family/caregiver, ordering medications, manuel ts, or procedures and communicating results to the patient/family/caregiver. Jessica Clarke PA-C documented in this encounterVeterans Health Administration04-19-2022 Procedure noteMccullough[facility]03-28-[facility] Evaluation note* Encounter Date Diagnosis Assessment Notes Treatment Notes Treatment Clinical Notes Jul, Constipation (ICD-10 - K59.00) Jul, Rectal bleeding (ICD-10 - K62.5) Jul, Rectal pain (ICD-10 - K62.89) Sample of Recticare cream given to patient Jul, Change in stool caliber (ICD-10 - R19.4) [facility] Other Evaluation + Plan note Future Appointments Appointment Date:02/10/2024 03:00:00 PM Scheduled Provider: Location:[facility] Appointment Type:Surgery FT [facility] evaluation noteNo assessment information available [facility] Work Phone: evalupseay note* Diagnosis Multiple sclerosis, relapsing-remitting (HCC) Multiple sclerosis documented in this encounter [facility] note* Diagnosis Multiple sclerosis (HCC)- Primary Multiple sclerosis Multiple sclerosis, relapsing-remitting (HCC) Multiple sclerosis documented in this encounter [facility] noteNo InformationNort Kanmu Other evaluation note* Diagnosis Multiple sclerosis, relapsing-remitting (HCC) Multiple sclerosis documented in this encounter [facility] note* Diagnosis Multiple sclerosis, relapsing-remitting (HCC)- Primary Multiple sclerosis documented in this encounter [facility] note* Diagnosis Encounter for screening mammogram for breast cancer documented in this encounter [facility] note* Diagnosis Multiple sclerosis, relapsing-remitting (HCC) Multiple sclerosis documented in this encounter [facility] note* Diagnosis Multiple sclerosis (HCC)- Primary Multiple sclerosis [facility]* Diagnosis Multiple sclerosis, relapsing-remitting (HCC)- Primary Multiple sclerosis documented [facility] encounter [facility]* Diagnosis Multiple sclerosis, relapsing-remitting (HCC)- Primary Multiple sclerosis documented [facility] encounter [facility]* Diagnosis Encounter for screening mammogram for breast cancer documented [facility] this encounter [facility]* Diagnosis Multiple sclerosis (HCC)- Primary Multiple sclerosis [facility] encounter [facility]* Diagnosis Multiple sclerosis (CMS/HCC)- Primary Multiple sclerosis Primary hypertension (CMS/HCC) Unspecified essential hypertension Anxiety and depression (CMS/HCC) COPD with exacerbation (CMS/HCC) Non-recurrent acute suppurative otitis media of left ear without spontaneous rupture of tympanic membrane [facility] Cervical disc disorder with radiculopathy- Primary Brachial neuritis or radiculitis nos Cervical stenosis of spine Spinal stenosis in cervical region Chronic neck pain Cervicalgia documented [facility] this encounter [facility]* Diagnosis Multiple sclerosis (HCC)- Primary Multiple sclerosis documented [facility] this encounter [facility]* Diagnosis Cervical stenosis of spine- Primary Spinal stenosis in cervical region documented [facility] this encounter [facility]* Diagnosis Left arm weakness- Primary Other musculoskeletal symptoms referable to limbs documented in this encounter [facility]* Diagnosis Multiple sclerosis (HCC)- Primary Multiple sclerosis Vitamin D deficiency Unspecified vitamin D deficiency [facility] this encounter [facility]* Diagnosis S/P arthroscopy of left shoulder- Primary documented in this encounter [facility] HealthcareEvaluation note* Diagnosis S/P arthroscopy of left shoulder documented in this encounter [facility] Healthcare[facility] note* Diagnosis Class 3 severe [...] and depression (CMS/HCC) documented in this encounter [facility] HealthcareEvaluation note* Diagnosis Pre-op testing- Primary Unspecified pre-operative examination Rotator cuff impingement syndrome of left shoulder documented in this encounter [facility] HealthcareEvaluation note* Diagnosis Diverticulitis- Primary Diverticulitis of colon (without mention of hemorrhage) Class 3 severe obesity without serious comorbidity with body mass index (BMI) of 45.0 to 49.9 in adult, unspecified obesity type (CMS/HCC) documented in this encounter [facility] HealthcareEvaluation note* Diagnosis Class 3 severe [...] of left shoulder documented in this encounter [facility] HealthcareEvaluation note* Diagnosis Multiple sclerosis (CMS/HCC)- Primary Multiple sclerosis Rotator cuff impingement syndrome of left shoulder- Primary documented in this encounter [facility] HealthcareEvaluation note* Diagnosis Class 3 severe [...] tubal ligation Surgical History caprpal tunnel release [employer] Other History general Narrative - Reported* Type Description Date Surgical History ectopic Surgical History tubal ligation Surgical History caprpal tunnel release Hospitalization History see above [employer] Other Hospital course Narrative No data available for this section [facility] Hospital Discharge instructions No data available for this section [facility] Progress note No data available for this section [facility] Reason for referral (narrative)* Diagnostic Procedure Only (Routine) - Pending Review Specialty Diagnoses / Procedures Referred By Atilio t Referred To Contact BR IMAGING Diagnoses Encounter for screening mammogram for breast cancer Procedures ALIYA SCREENING SCREENING MAMMOGRAPHY BI 2-VIEW BREAST INC Valdez Cohen MD [address] [place] [address] [facility] [address] [place] [address] Referral ID Status Reason Start Date Expiration Date Visits Requested Visits Authorized [id number] Pending Review Auto-Generat ed Referral 11/15/2021 12/15/2022 1 1 [facility] for referral (narrative)* Diagnostic Procedure Only (Routine) - Pending Review Specialty Diagnoses / Procedures Referred By Atilio t Referred To Contact BR IM[facility] Diagnoses Encounter for screening mammogram for breast cancer Procedures ALIYA SCREENING SCREENING MAMMOGRAPHY BI 2-VIEW BREAST INC Valdez Cohen MD [address] [place] [address] [facility] [address] [place] [address] Referral ID Status Reason Start Date Expiration Date Visits Requested Visits Authorized [id number] Pending Review Auto-Generat ed Referral 10/17/2022 11/16/2023 1 1 T [facility] for referral (narrative)* Consultation (Routine) Specialty Diagnoses / Procedures Referred By Contac t Referred To Contact Neurology [facility] [address] [place] [phone] Aron Chinchilla MD [address] [facility] [address] [place] [address] Referral ID Status Reason Start Date Expiration Date V isits Requested Visits Authorized Specialty Services Required [facility] HealthcareReason for visit NarrativeREFERRED BY KRISTIN GRACIA FOR CONSTIPATION, (REFERRAL NOTE RECEIVED)[employer] Other Reason for visit Narrative* Rehabilitation - Outpatient (Routine) - Authorized Specialty Diagnoses / Procedures Referred By Atilio carbone Referred To Contact Physical Therapy Diagnoses S/P arthroscopy of left shoulder Procedures [place] OFFICE/OUTPATIENT [facility] MDM 60 MINUTES Eliazar Brooks, DO [address] [place] [address] Phone: tel: fax: Aria Agrawal PT Referral ID Status Reason Start Date Expiration Date Visits Requested Visits Authorized [id number] Authorized Specialty Services Required 4 04/10/2024 12 [...] Multiple sclerosis, relapsing-remitting (HCC) Procedures CONSULT TO LEAN CONSULTANT OCCUPATIONAL THERAPY EVAL HIGH COMPLEX 60 MINS Jessica Clarke PA-C [address] [facility] [place] [address] [facility] [address] [place] [address] Referral ID Status Reason Start Date Expiration Date Visits Requested Visits Authorized [id number] Pending Review Auto-Generat ed Referral 09/15/2021 09/15/2022 1 1 Specialty Diagnoses / Procedures Referred By Atilio carbone Referred To Contact MR IMAGING Diagnoses Multiple sclerosis, relapsing-remitting (HCC) Procedures MRI BRAIN WO/W IVCON MRI BRAIN BRAIN STEM W/O W/CONTRAST MATERIAL Jessica Clarke PA-C [address] [place] [address] Mr Imaging Referral ID Status Reason Start Date Expiration Date Visits Requested Visits Authorized [id number] Pending Review Auto-Generat ed Referral 09/15/2021 10/15/2022 1 1 Referral ID Status Reason Start Date Expiration Date V isits Requested Visits Authorized [id number] Closed Auto-Generate d Referral 09/15/2021 11/25/2021 1 1 Specialty Diagnoses / Procedures Referred By Contac t Referred To Contact MR IMAGING Diagnoses Multiple sclerosis, relapsing-remitting (HCC) Procedures MRI BRAIN WO/W IVCON MRI BRAIN BRAIN STEM W/O W/CONTRAST MATERIAL Sarthak Escobar MD, PhD [address] [place] [address] Mr Imaging Referral ID Status Reason Start Date Expiration Date Visits Requested Visits Authorized [id number] Pending Review Auto-Generat ed Referral 11/14/2021 12/14/2022 1 1 Specialty Diagnoses / Procedures Referred By Contac t Referred To Contact MR IMAGING Diagnoses Multiple sclerosis, relapsing-remitting (HCC) Procedures MRI CERVICAL SPINE WO/W IVCON MRI SPINAL CANAL CERVICAL W/O & W/CONTR MATRL Jessica Clarke PA-C [address] [place] [address] Mr Imaging Referral ID Status Reason Start Date Expiration Date Visits Requested Visits Authorized [id number] Pending Review Auto-Generat ed Referral 08/30/2022 09/29/2023 1 1 Referral ID Status Reason Start Date Expiration Date Visits Requested Visits Authorized [id number] Pending Review Auto-Generat ed Referral 08/30/2022 09/29/2023 1 1 Specialty Diagnoses / Procedures Referred By Contac t Referred To Contact [facility] Diagnoses Cervical disc disorder with radiculopathy Procedures CONSULT TO PHYSICAL THERAPY PHYSICAL THERAPY EVALUATION HIGH COMPLEX 45 MINS [place], [address] [address] [address] [facility] [address] [place] [address] Referral ID Status Reason Start Date Expiration Date Visits Requested Visits Authorized [id number] Pending Review Auto-Generat ed Referral 07/10/2023 07/09/2024 1 1 Specialty Diagnoses / Procedures Referred By Contac t Referred To Contact MR IMAGING Diagnoses Multiple sclerosis (HCC) Procedures MRI BRAIN WO/W IVCON MRI BRAIN BRAIN STEM W/O W/CONTRAST MATERIAL Jessica Clarke PA-C [address] [place] [address] Mr Imaging [place] [address] Referral ID Status Reason Start Date Expiration Date Visits Requested Visits Authorized [id number] Pending Review Auto-Generat ed Referral 07/16/2023 08/14/2024 1 1 Specialty Diagnoses / Procedures Referred By Contac t Referred To Contact Diagnoses Cervical stenosis of spine Procedures CONSULT TO SPINE SURGERY OFFICE/OUTPATIENT [facility] 60 MINUTES Jessica Clarke PA-C [address] [place] [address] Referral ID Status Reason Start Date Expiration Date Visits Requested Visits Authorized [id number] Authorized PCP Requested Referral 08/22/2023 08/21/2024 1 1 Specialty Diagnoses / Procedures Referred By Contac t Referred To Contact MR IMAGING Diagnoses Left arm weakness Procedures MRI CERVICAL SPINE WO IVCON MRI SPINAL CANAL CERVICAL W/O CONTRAST MATRL Katerin Mccoy PA-C [address] [place] [address] Mr Imaging [place] [address] Referral ID Status Reason Start Date Expiration Date Visits Requested Visits Authorized [id number] Pending Review Auto-Generat ed Referral 09/06/2023 10/05/2024 1 1 Specialty Diagnoses / Procedures Referred By Contac t Referred To Contact [facility] Diagnoses Left arm weakness Procedures EMG(NEURO/NI) NERVE CONDUCTION STUDIES 9-10 STUDIES Katerin Mccoy PA-C [address] [place] [id number] [facility] [address] [place] [address] Referral ID Status Reason Start Date Expiration Date Visits Requested Visits Authorized [id number] Pending Review Auto-Generat ed Referral 09/06/2023 09/05/2024 1 1 Specialty Diagnoses / Procedures Referred By Contac t Referred To Contact XR IMAGING Diagnoses Left arm weakness Procedures XR CERV OTHER 4V AP/LAT/FLX/EXT RADEX SPINE CERVICAL 4 OR 5 VIEWS Katerin Mccoy PA-C [address] [place] [address] [place] [address] Referral ID Status Reason Start Date Expiration Date Visits Requested Visits Authorized [id number] Pending Review Auto-Generat ed Referral 09/06/2023 10/05/2024 1 1 Specialty Diagnoses / Procedures Referred By Contac t Referred To Contact Physical Therapy Diagnoses S/P arthroscopy of left shoulder Procedures [place] OFFICE/OUTPATIENT [facility] MDM 60 MINUTES Eliazar Brooks, DO [address] [facility] [address] Aria Agrawal PT Referral ID Status Reason Start Date Expiration Date Visits Requested Visits Authorized [id number] Pending Review Specialty Services Required 02/25/2024 08/23/2024 [...] and content) DATE CREATED AUTHOR 11/12/2017 Pathology [facility] DATE CREATED AUTHOR AUTHOR'S ORGANIZ ATION 11/13/2017 [facility] DATE CREATED AUTHOR AUTHOR'S ORGANIZ ATION 09/14/2021 [facility] DATE CREATED AUTHOR AUTHOR'S ORGANIZ ATION 10/02/2022 [facility] DATE CREATED AUTHOR AUTHOR'S ORGANIZ ATION 12/21/2023 [facility] DATE CREATED AUTHOR AUTHOR'S ORGANIZ ATION 02/07/2024 [facility] DATE CREATED AUTHOR AUTHOR'S ORGANIZ ATION 02/18/2024 [facility] DATE CREATED AUTHOR AUTHOR'S ORGANIZ ATION 08/19/2024 [facility] dical Specialists EPIC Medical History (unrecognize d section and content) Includes: Medical History in patient's chartNo Medical History Recorded Evaluations & Outcomes (unre cognized section and content) Includes: Evaluations & Outcomes for active GoalsNo Outcomes Recorded Care Teams (unrecognized sec tion and content) Team Status: Inactive Member Role Status Dates Services [facility] Primary Care Provider Active Tyshawn Palencia MD Attending Provider Active Team Status: Active Member Role Status Dates Services [facility] Primary Care Provider Active Hearings Reporter Relationship Specialty Start Date End Date Valdez Acosta MD [address] [place] [address], [place] [address] PCP - General Internal Medicine 11/01/20 Hearings Reporter Relationship Specialty Start Date End Date Valdez Acosta MD [address] [place] [address] PCP - General Internal Medicine 11/01/20 Hearings Reporter Relationship Specialty Start Date End Date Valdez Acosta MD [address] [place] [address], [place] [address] PCP - General Internal Medicine 11/01/20 Hearings Reporter Relationship Specialty Start Date End Date Valdez Acosta MD [address] [place] [address] PCP - General Internal Medicine 11/01/20 Hearings Reporter Relationship Specialty Start Date End Date Valdez Acosta MD [address] [place] [address] PCP - General Internal Medicine 11/01/20 Hearings Reporter Relationship Specialty Start Date End Date Valdez Acosta MD [address] [place] [address] PCP - General Internal Medicine 11/01/20 Hearings Reporter Relationship Specialty Start Date End Date Valdez Acosta MD [address] [place] [address] PCP - General Internal Medicine 11/01/20 Hearings Reporter Relationship Specialty Start Date End Date Valdez Acosta MD [address] [place] [address], [place] [address] PCP - General Internal Medicine 11/01/20 Hearings Reporter Relationship Specialty Start Date End Date Valdez Acosta MD [address] [place] [address] [place] [address] PCP - General Internal Medicine 11/01/20 Hearings Reporter Relationship Specialty Start Date End Date Valdez Acosta MD [address] [place] [address] PCP - General Internal Medicine 11/01/20 Hearings Reporter Relationship Specialty Start Date End Date Valdez Acosta MD [address] [place] [address] PCP - General Internal Medicine 11/01/20 Hearings Reporter Relationship Specialty Start Date End Date Valdez Acosta MD [address] [place] [address] PCP - General Internal Medicine 11/01/20 Hearings Reporter Relationship Specialty Start Date End Date Valdez Acosta MD [address] [place] [address] PCP - General Internal Medicine 11/01/20 Hearings Reporter Relationship Specialty Start Date End Date Valdez Acosta MD [address] [place] [address] PCP - General Internal Medicine 11/01/20 Hearings Reporter Relationship Specialty Start Date End Date Maxim Lanza MD [address] [place] [address] PCP - General Family Medicine 04/22/23 Kristin Gracia NP [address] [place] [address] Nurse Practitioner Family Medicine 05/20/22 Hearings Reporter Relationship Specialty Start Date End Date Maxim Lanza MD [address] [place] [address] PCP - General Family Medicine 04/22/23 Kristin Gracia NP [address] [place] [address] Nurse Practitioner Family Medicine 05/20/22 Hearings Reporter Relationship Specialty Start Date End Date Valdez Acosta MD [address] [place] [address] PCP - General Internal Medicine 11/01/20 Hearings Reporter Relationship Specialty Start Date End Date Valdez Acosta MD [address] [place] [address] PCP - General Internal Medicine 11/01/20 Hearings Reporter Relationship Specialty Start Date End Date Valdez Acosta MD [address] [place] [address] PCP - General Internal Medicine 11/01/20 Hearings Reporter Relationship Specialty Start Date End Date Valdez Acosta MD [address] [place] [address] PCP - General Internal Medicine 11/01/20 Hearings Reporter Relationship Specialty Start Date End Date Valdez Acosta MD [address] [place] [address] PCP - General Internal Medicine 11/01/20 Hearings Reporter Relationship Specialty Start Date End Date Valdez Acosta MD [address] [place] [address] PCP - General Internal Medicine 11/01/20 Hearings Reporter Relationship Specialty Start Date End Date Valdez Acosta MD [address] [place] [address] PCP - General Internal Medicine 11/01/20 Hearings Reporter Relationship Specialty Start Date End Date Maxim Lanza MD [address] [place] [address] PCP - General Family Medicine 07/15/23 Kristin Gracia NP [address] [place] [address] Primary Care Provider Family Medicine 05/20/22 Hearings Reporter Relationship Specialty Start Date End Date Maxim Lanza MD [address] [place] [address] PCP - General Family Medicine 07/15/23 Kristin Gracia NP [address] [place] [address] Primary Care Provider Family Medicine 05/20/22 Hearings Reporter Relationship Specialty Start Date End Date Maxim Lanza MD [address] [place] [address] PCP - General Family Medicine 07/15/23 Kristin Gracia NP [address] [place] [address] Primary Care Provider Family Medicine 05/20/22 Hearings Reporter Relationship Specialty Start Date End Date Maxim Lanza MD [address] [place] [address] PCP - General Family Medicine 07/15/23 Kristin Gracia NP [address] [place] [address] Primary Care Provider Family Medicine 05/20/22 Hearings Reporter Relationship Specialty Start Date End Date Maxim Lanza MD [address] [place] [address] PCP - General Family Medicine 07/15/23 Kristin Gracia NP [address] [place] [address] Primary Care Provider Family Medicine 05/20/22 Hearings Reporter Relationship Specialty Start Date End Date Maxim Lanza MD [address] [place] [address] PCP - General Family Medicine 07/15/23 Kristin Gracia NP [address] [place] [address] Primary Care Provider Family Medicine 05/20/22 Hearings Reporter Relationship Specialty Start Date End Date Maxim Lanza MD [address] [place] [address] PCP - General Family Medicine 07/15/23 Kristin Gracia NP [address] [place] [address] Primary Care Provider Family Medicine 05/20/22 Hearings Reporter Relationship Specialty Start Date End Date Maxim Lanza MD [address] [place] [address] PCP - General Family Medicine 07/15/23 Kristin Gracia NP [address] [place] [address] Primary Care Provider [facility] Medicine 05/20/22 Hearings Reporter Relationship Specialty Start Date End Date Maxim Lanza MD [address] [place] [address] PCP - General Family Medicine 07/15/23 Kristin Gracia NP [address] [place] [address] Primary Care Provider [facility] Medicine 05/20/22 Hearings Reporter Relationship Specialty Start Date End Date Maxim Lanza MD [address] [place] [address] PCP - General Family Medicine 07/15/23 Kristin Gracia NP [address] [place] [address] Primary Care Provider [facility] Medicine 05/20/22 Hearings Reporter Relationship Specialty Start Date End Date Maxim Lanza MD [address] [place] [address] PCP - General Family Medicine 07/15/23 Kristin Gracia NP [address] [place] [address] Primary Care Provider Family Medicine 05/20/22 Hearings Reporter Relationship Specialty Start Date End Date Maxim Lanza MD [address] [place] [address] PCP - General Family Medicine 07/15/23 Kristin Gracia NP [address] [place] [address] Primary Care Provider Family Medicine 05/20/22 Hearings Reporter Relationship Specialty Start Date End Date Maxim Lanza MD [address] [place] [address] PCP - General Family Medicine 07/15/23 Kristin Gracia NP [address] [place] [address] Primary Care Provider Family Medicine 05/20/22 Hearings Reporter Relationship Specialty Start Date End Date Maxim Lanza MD [address] [place] [address] PCP - General Family Medicine 07/15/23 Kristin Gracia NP [address] [place] [address] Primary Care Provider Family Medicine 05/20/22 Hearings Reporter Relationship Specialty Start Date End Date Maxim Lanza MD [address] [place] [address] PCP - General Family Medicine 07/15/23 Kristin Gracia NP [address] [place] [address] Primary Care Provider Family Medicine 05/20/22 Hearings Reporter Relationship Specialty Start Date End Date Maxim Lanza MD [address] [place] [address] PCP - General Family Medicine 07/15/23 Kristin Gracia NP [address] [place] [address] Primary Care Provider Family Medicine 05/20/22 Hearings Reporter Relationship Specialty Start Date End Date Maxim Lanza MD [address] [place] [address] PCP - General Family Medicine 07/15/23 Kristin Gracia NP [address] [place] [address] Primary Care Provider Family Medicine 05/20/22 Hearings Reporter Relationship Specialty Start Date End Date Maxim Lanza MD [address] [place] [address] PCP - General Family Medicine 07/15/23 Kristin Gracia NP [address] [place] [address] Primary Care Provider Family Medicine 05/20/22 Hearings Reporter Relationship Specialty Start Date End Date Maxim Lanza MD [address] [place] [address] PCP - General Family Medicine 07/15/23 Kristin Gracia, KIRK [address] [place] [address] Primary Care Provider Family Medicine 05/20/22 Hearings Reporter Relationship Specialty Start Date End Date Valdez Acosta MD [address] [place] [address] PCP - General Internal Medicine 11/01/20 Sherrie Smith PA-C [address] [place] [id number] Sheet Rock Finisher Internal Medicine 04/26/24 Elizabeth Lopez APRN.PIPE BENDER [address] [place] [address] Sheet Rock Finisher Family Medicine 04/26/24 Hearings Reporter Relationship Specialty Start Date End Date Maxim Lanza MD [address] [place] [address] PCP - General Family Medicine 07/15/23 Kristin Gracia, KIRK [address] [place] [address] Primary Care Provider Family Medicine 05/20/22 Hearings Reporter Relationship Specialty Start Date End Date Maxim Lanza MD [address] [place] [address] PCP - General Family Medicine 07/15/23 Kristin Gracia NP [address] [place] [address] Primary Care Provider Family Medicine 05/20/22 Hearings Reporter Relationship Specialty Start Date End Date Maxim Lanza MD [address] [place] [address] PCP - General Family Medicine 07/15/23 Kristin Gracia NP [address] [place] [address] Primary Care Provider Family Medicine 05/20/22 Hearings Reporter Relationship Specialty Start Date End Date Maxim Lanza MD [address] [place] [address] PCP - General Family Medicine 07/15/23 Kristin Gracia NP [address] [place] [address] Primary Care Provider Family Medicine 05/20/22 Hearings Reporter Relationship Specialty Start Date End Date Maxim Lanza MD [address] [place] [address] PCP - General Family Medicine 07/15/23 Kristin Gracia NP [address] [place] [address] Primary Care Provider Family Medicine 05/20/22 Hearings Reporter Relationship Specialty Start Date End Date Maxim Lanza MD [address] [place] [address] PCP - General Family Medicine 07/15/23 Kristin Gracia NP [address] [place] [address] Primary Care Provider Family Medicine 05/20/22 Hearings Reporter Relationship Specialty Start Date End Date Maxim Lanza MD [address] [place] [address] PCP - General Family Medicine 07/15/23 Kristin Gracia NP [address] [place] [address] Primary Care Provider Family Medicine 05/20/22 Hearings Reporter Relationship Specialty Start Date End Date Maxim Lanza MD [address] [place] [address] PCP - General Family Medicine 07/15/23 Kristin Gracai NP [address] [place] [address] Primary Care Provider Family Medicine 05/20/22 Hearings Reporter Relationship Specialty Start Date End Date Maxim Lanza MD [address] [place] [address] PCP - General Family Medicine 07/15/23 Kristin Gracia NP [address] [place] [address] Primary Care Provider Family Medicine 05/20/22 Goals [...] or prosecute any alcohol or drug abuse patient.[facility] Health AdministrationIn the event this information is protected by the Federal Confidentiality of Alcohol and Drug Abuse Patient Records regulations: The Federal rules restrict any use of the information to criminally investigate or prosecute any alcohol or drug abuse patient.[facility] Health AdministrationIn the event this information is protected by the Federal Confidentiality of Alcohol and Drug Abuse Patient Records regulations: The Federal rules restrict any use of the information to criminally investigate or prosecute any alcohol or drug abuse patient.[facility] AdministrationIn the event this information is protected by the Federal Confidentiality of Alcohol and Drug Abuse Patient Records regulations: The Federal rules restrict any use of the information to criminally investigate or prosecute any alcohol or drug abuse patient.[facility] Health AdministrationIn the event this information is protected by the Federal Confidentiality of Alcohol and Drug Abuse Patient Records regulations: The Federal rules restrict any use of the information to criminally investigate or prosecute any alcohol or drug abuse patient.[facility] Health AdministrationIn the event this information is protected by the Federal Confidentiality of Alcohol and Drug Abuse Patient Records regulations: The Federal rules restrict any use of the information to criminally investigate or prosecute any alcohol or drug abuse patient.[facility] Health AdministrationIn the event this information is protected by the Federal Confidentiality of Alcohol and Drug Abuse Patient Records regulations: The Federal rules restrict any use of the information to criminally investigate or prosecute any alcohol or drug abuse patient.[facility] AdministrationIn the event this information is protected by the Federal Confidentiality of Alcohol and Drug Abuse Patient Records regulations: The Federal rules restrict any use of the information to criminally investigate or prosecute any alcohol or drug abuse patient.[facility] AdministrationIn the event this information is protected by the Federal Confidentiality of Alcohol and Drug Abuse Patient Records regulations: The Federal rules restrict any use of the information to criminally investigate or prosecute any alcohol or drug abuse patient.[facility] AdministrationIn the event this information is protected by the Federal Confidentiality of Alcohol and Drug Abuse Patient Records regulations: The Federal rules restrict any use of the information to criminally investigate or prosecute any alcohol or drug abuse patient.[facility] AdministrationIn the event this information is protected by the Federal Confidentiality of Alcohol and Drug Abuse Patient Records regulations: The Federal rules restrict any use of the information to criminally investigate or prosecute any alcohol or drug abuse patient.[facility] AdministrationIn the event this information is protected by the Federal Confidentiality of Alcohol and Drug Abuse Patient Records regulations: The Federal rules restrict any use of the information to criminally investigate or prosecute any alcohol or drug abuse patient.[facility] AdministrationIn the event this information is protected by the Federal Confidentiality of Alcohol and Drug Abuse Patient Records regulations: The Federal rules restrict any use of the information to criminally investigate or prosecute any alcohol or drug abuse patient.[facility] AdministrationIn the event this information is protected by the Federal Confidentiality of Alcohol and Drug Abuse Patient Records regulations: The Federal rules restrict any use of the information to criminally investigate or prosecute any alcohol or drug abuse patient.[facility] AdministrationIn the event this information is protected by the Federal Confidentiality of Alcohol and Drug Abuse Patient Records regulations: The Federal rules restrict any use of the information to criminally investigate or prosecute any alcohol or drug abuse patient.[facility] AdministrationIn the event this information is protected by the Federal Confidentiality of Alcohol and Drug Abuse Patient Records regulations: The Federal rules restrict any use of the information to criminally investigate or prosecute any alcohol or drug abuse patient.[facility] AdministrationIn the event this information is protected by the Federal Confidentiality of Alcohol and Drug Abuse Patient Records regulations: The Federal rules restrict any use of the information to criminally investigate or prosecute any alcohol or drug abuse patient.[facility] AdministrationIn the event this information is protected by the Federal Confidentiality of Alcohol and Drug Abuse Patient Records regulations: The Federal rules restrict any use of the information to criminally investigate or prosecute any alcohol or drug abuse patient.[facility] AdministrationIn the event this information is protected by the Federal Confidentiality of Alcohol and Drug Abuse Patient Records regulations: The Federal rules restrict any use of the information to criminally investigate or prosecute any alcohol or drug abuse patient.[facility] AdministrationIn the event this information is protected by the Federal Confidentiality of Alcohol and Drug Abuse Patient Records regulations: The Federal rules restrict any use of the information to criminally investigate or prosecute any alcohol or drug abuse patient.[facility] AdministrationIn the event this information is protected by the Federal Confidentiality of Alcohol and Drug Abuse Patient Records regulations: The Federal rules restrict any use of the information to criminally investigate or prosecute any alcohol or drug abuse patient.[facility] AdministrationIn the event this information is protected by the Federal Confidentiality of Alcohol and Drug Abuse Patient Records regulations: The Federal rules restrict any use of the information to criminally investigate or prosecute any alcohol or drug abuse patient.[facility] AdministrationIn the event this information is protected by the Federal Confidentiality of Alcohol and Drug Abuse Patient Records regulations: The Federal rules restrict any use of the information to criminally investigate or prosecute any alcohol or drug abuse patient.[facility] AdministrationIn the event this information is protected by the Federal Confidentiality of Alcohol and Drug Abuse Patient Records regulations: The Federal rules restrict any use of the information to criminally investigate or prosecute any alcohol or drug abuse patient.[facility] AdministrationIn the event this information is protected by the Federal Confidentiality of Alcohol and Drug Abuse Patient Records regulations: The Federal rules restrict any use of the information to criminally investigate or prosecute any alcohol or drug abuse patient.[facility] AdministrationIn the event this information is protected by the Federal Confidentiality of Alcohol and Drug Abuse Patient Records regulations: The Federal rules restrict any use of the information to criminally investigate or prosecute any alcohol or drug abuse patient.[facility] AdministrationIn the event this information is protected by the Federal Confidentiality of Alcohol and Drug Abuse Patient Records regulations: The Federal rules restrict any use of the information to criminally investigate or prosecute any alcohol or drug abuse patient.[facility] AdministrationIn the event this information is protected by the Federal Confidentiality of Alcohol and Drug Abuse Patient Records regulations: The Federal rules restrict any use of the information to criminally investigate or prosecute any alcohol or drug abuse patient.[facility] AdministrationIn the event this information is protected by the Federal Confidentiality of Alcohol and Drug Abuse Patient Records regulations: The Federal rules restrict any use of the information to criminally investigate or prosecute any alcohol or drug abuse patient.[facility] Administration Reason for Visit (unrecogniz ed section and content) Reason Comments IV Medication Administration [facility] Specialty Diagnoses / Procedures Referred By Atilio t Referred To Contact Diagnoses Multiple sclerosis (HCC) G35 (ICD-10-CM) - Multiple sclerosis (HCC) Procedures INJECTION, OCRELIZUMAB, 1 MG J2350 - INJECTION, OCRELIZUMAB, 1 MG Sarthak Escobar MD, PhD [address] [place] [address] [facility] [address] [place] [address] Referral ID Status Reason Start Date Expiration Date V isits Requested Visits Authorized [id number] Pending Review 12/06/2020 03/22/2023 4 4 Reason Comments Established Patient Follow-Up Reason Comments Infusion [facility] Referral ID Status Reason Start Date Expiration Date V isits Requested Visits Authorized [id number] Pending Review 12/06/2020 03/01/2022 2 2 Specialty Diagnoses / Procedures Referred By Contac t Referred To Contact MR IMAGING Diagnoses Multiple sclerosis, relapsing-remitting (HCC) Procedures MRI BRAIN WO/W IVCON MRI BRAIN BRAIN STEM W/O W/CONTRAST MATERIAL Jessica Clarke PA-C [address] [place] [address] Mr Imaging Referral ID Status Reason Start Date Expiration Date V isits Requested Visits Authorized [id number] Closed Auto-Generate d Referral 09/15/2021 11/25/2021 1 1 Reason Comments Established Patient Follow-Up Reason Comments [facility] Specialty Diagnoses / Procedures Referred By Contac t Referred To Contact [facility] Diagnoses Multiple sclerosis, relapsing-remitting (HCC) Procedures CONSULT TO [facility] OCCUPATIONAL THERAPY EVAL HIGH COMPLEX 60 MINS Jessica Clarke PA-C [address] [place] [address] [facility] [place] [address] Referral ID Status Reason Start Date Expiration Date V isits Requested Visits Authorized [id number] Closed Auto-Generate d Referral 09/15/2021 05/19/2022 1 1 Reason Comments Appointment Called pt LVM to see about setting up pt and psycology. Reason Comments Established Patient Follow-Up Reason Comments Patient Update Reason Comments URI Reason Comments Consult Cervical pain Specialty Diagnoses / Procedures Referred By Contac t Referred To Contact [facility] Diagnoses Cervical stenosis of spine Procedures CONSULT TO [facility] OFFICE/OUTPATIENT NEW HIGH MDM 60 MINUTES Jessica Clarke PA-C [address] [place] [address] Referral ID Status Reason Start Date Expiration Date V isits Requested Visits Authorized [id number] Closed PCP Requested Referral 06/13/2023 06/12/2024 1 [...] MDM 60 MINUTES Eliazar Brooks, DO [address] [address] Aria Agrawal PT Referral ID Status Reason Start Date Expiration Date Visits Requested Visits Authorized [id number] Pending Review Specialty Services Required 02/25/2024 08/23/2024 [...] BE BASED ON THE PRIMARY CLINICAL RECORDS. [employer] provides no warranty or guarantee of the accuracy or completeness of information in this document.
[2024-08-23 02:00] VITALS: BP 118/75; PULSE 51; TEMP 36.8; O2SAT 96
[2024-08-23 02:10] VITALS: BP 118/75; PULSE 51; TEMP 36.8; O2SAT 96; BMI 42.2
[2024-08-23] MEDS: BUSPIRONE HCL 10 MG TABLET 5 MG PO ×3 (03:12→21:08)
[2024-08-23 06:08] LABS: Hematocrit 39.3 % (36.0-48.0); Hemoglobin 12.5 g/dL (12.0-16.0); Mean Corpuscular HGB Conc 31.8 g/dL (29.9-35.2); Mean Corpuscular Hemoglobin 27.6 pg (26.7-34.0); Mean Corpuscular Volume 86.8 fL (81.0-99.0); Mean Platelet Volume 12.2 fL (9.5-13.5); Platelet Count 183 10^3/uL (150-450); Red Blood Count 4.53 10^6/uL (4.20-5.40); Red Cell Distribution Width 14.6 % (11.0-15.0)
[2024-08-23 06:20] LABS: Anion Gap 13.5; BUN Creatinine Ratio 10.5; Calcium 8.6 mg/dL (8.5-10.1); Carbon Dioxide 26.1 mmol/L (21.0-32.0); Chloride 106 mmol/L (98-107); Estimated GFR (African America >60 (>=60 mL/min/1.73m^2); Estimated GFR (Non-African Ame 54 (>=60 mL/min/1.73m^2); Glucose 103 mg/dL (74-106); Potassium 3.6 mmol/L (3.5-5.1); Sodium 142 mmol/L (136-145)
--- NOTE | 2024-08-23 07:39 | PM.HP ---
HPI H&P: HPI History of Present Illness Chief complaint: UTI Narrative: Patient is a 54 y.o white female with past medical history of Multiple Sclerosis, bipolar disorder who presented to the ER last night with a 2 week history of urinary urgency, frequency and pain. She had episode of nausea and vomiting prior to arrival. She denies fevers or chills. She gets infusions every 6 months for her MS treatment. She is usually able to get around with a cane but lately has been very weak. ER findings: WBC's 11.8, Cr 1.33, CT of the abd/pelvis WO showed no acute inflammatory process, no hydronephrosis, or ureteral calculus, no bowel perforation or obstruction, scattered diverticula without diverticulitis. UA was positive for UTI. Patient was started on IVF due to BRANDON and tachycardia of 105, and given Rocephin IV and admitted for further plan of care. This morning she says she is tired, some back pain still present. No fevers, ate breakfast. Opioid HPI Opioid Management Most Recent Pain and Opioid Data: Last Pain Scale 7 08/23/24 11:00 08/23/24 Last Pain Assessment 08/23/24 11:00 Last MAR Pain Assessment 08/23/24 10:31 Last ORT Total Score 1 08/23/24 02:10 08/23/24 Last ORT Risk Category Low Risk 08/23/24 02:10 08/23/24 Review of Systems ROS Narrative ROS: a complete review of systems were reviewed with patient and are positive as below or listed in History of Chief Complaint. General: no fever, chills, night sweats Head: no headache, trauma, visual changes, nausea or vomiting Skin: no reported rashes, itching or sores Eyes: no blurriness of vision Ears: no reported hearing loss, vertigo, earache, or tinnitus Throat: no sore throat, hoarseness, swelling of neck, or tongue pain Heart: no chest pain Lungs: no shortness of breath or cough GI: no diarrhea but vomiting/nausea Urinary: no urinary urgency, frequency or pain Neuro: numbness or tingling HEM: no bleeding issues or bruising ENDO: no thyroid problems Psych: anxiety and depression [facility] Medical History (Updated 08/23/24 @ 12:06 by Laurel Hamlin DO) Bipolar 1 disorder ?F31.9 - Bipolar disorder, unspecified (ICD-10) Pressure injury of sacral region, stage 2 ?L89.152 - Pressure ulcer of sacral region, stage 2 (ICD-10) Obesity ?E66.9 - Obesity, unspecified (ICD-10) Multiple sclerosis ?G35 - Multiple sclerosis (ICD-10) Social History Highest level of school completed/degree received: high school graduate Little interest or pleasure in doing things: several days Feeling down, depressed, or hopeless: several days Meds Home Medications and Allergies Home Medications ?Medication ?Instructions ?Recorded ?Confirmed ?Type aripiprazole 10 mg tablet 10 mg PO DAILY 08/23/24 08/23/24 History buspirone 5 mg tablet 5 mg PO BID 08/23/24 08/23/24 History buspirone 7.5 mg tablet 7.5 mg PO Q8H PRN anxiety 08/23/24 08/23/24 History cetirizine 10 mg tablet 10 mg PO DAILY 08/23/24 08/23/24 History escitalopram oxalate 10 mg tablet 10 mg PO DAILY 08/23/24 08/23/24 History mirtazapine 15 mg tablet 15 mg PO .hs 08/23/24 08/23/24 History nystatin 100,000 unit/gram topical 1 applic topical DAILY 08/23/24 08/23/24 History powder ([facility]) Allergies Allergy/AdvReac Type Severity Reaction Status Date / Time No Known Drug Allergies Allergy Verified 08/22/24 22:39 Exam Narrative Exam Narrative: General: Patient is alert, and oriented to person, place and time with normal affect, proper hygiene, morbid obesity Skin: no visible rashes, or ulcers Head: atraumatic, acephalic Eyes: PERRLA, no nystagmus present, conjunctiva clear, no scleral icterus Ears: normal gross auditory acuity Heart: Normal rate and rhythm, no murmurs/rubs/gallops Lungs: no audible wheezes, crackles and normal breath sounds all lung franks Abdomen: Normal audible bowel sounds, no distension, No palpable masses, no organomegaly, no rebound/guarding/ or rigidity Musculoskeletal: no swelling bilateral lower extremities Neuro: CN II-X grossly intact, normal sensation upper and lower extremities Constitutional Vital Signs, click to edit/add: Last Vital Signs Temp 98.2 F 08/23/24 02:10 Pulse 51 L 08/23/24 02:10 Resp 15 08/23/24 02:10 BP 118/75 08/23/24 02:10 Pulse Ox 96 08/23/24 02:10 O2 Del Method Room Air 08/23/24 02:10 Results Labs Labs: Short CBC 08/22/24 08/23/24 Range/Units 23:05 05:46 WBC 11.8 H 10.0 (4.0-11.0) 10^3/uL Hgb 13.8 12.5 (12.0-16.0) g/dL Hct 43.6 39.3 (36.0-48.0) % Plt Count 211 183 (150-450) 10^3/uL BMP 08/22/24 08/23/24 23:05 05:46 Sodium 139 142 Potassium 3.5 3.6 Chloride 103 106 Carbon Dioxide 31.3 26.1 BUN 13.0 11.0 Creatinine 1.33 H 1.05 H Glucose 100 103 Calcium 8.9 8.6 Urine 08/22/24 Range/Units 22:45 Urine Color Yellow (YELLOW) Urine Clarity Slightly cloudy A (CLEAR) Urine pH 6.0 (5.0-9.0) Ur Specific [place] 1.015 (1.005-1.025) Urine Protein 30 A (NEG/TRACE) mg/dL Urine Glucose (UA) Negative (NEGATIVE) mg/dL Assessment and Plan Assessment and Plan (1) Urinary tract infection: Assessment and Plan: continue to treat with Rocephin IV, will transition to oral once n/v resolve, urine culture pending. WBC's 10 this morning Qualifiers: Hematuria presence: without hematuria Urinary tract infection type: acute cystitis Qualified Code(s): N30.00 - Acute cystitis without hematuria (2) BRANDON (acute kidney injury): Assessment and Plan: cr 1.35, down to 1.05 with IVF, improving, CT was negative (3) Generalized weakness: Assessment and Plan: due to #1, pt/ot evaluation (4) Dehydration: Assessment and Plan: continue with IVF, vitals stable (5) Multiple sclerosis: Assessment and Plan: continue home medications. PT/OT evaluations once available (6) Obesity: Assessment and Plan: would benefit from calorie and weight loss reduction Qualifiers: Body mass index: BMI 40.0-44.9 Obesity classification: adult class 3 (BMI >= 40) Obesity type: due to excess calories Serious obesity comorbidity presence: without serious comorbidity Qualified Code(s): E66.813 - Obesity, class 3; E66.01 - Morbid (severe) obesity due to excess calories; Z68.41 - Body mass index [BMI] 40.0-44.9, adult (7) Bipolar 1 disorder: Assessment and Plan: resume home medications Plan Patient is a full code continue SCD's for DVT prophylaxis Patient is in observation status Urinary Catheter Management Urinary Catheter Management Straight: Cath placed during this visit: yes Urethral indwelling: No Insertion date: 08/22/24 Insertion time: 22:45
[2024-08-23 08:00] VITALS: PULSE 62
[2024-08-23 08:40] VITALS: BP 111/76; PULSE 62; TEMP 36.8; O2SAT 92
[2024-08-23] MEDS: ESCITALOPRAM 10 MG TABLET PO (10:22)
[2024-08-23] MEDS: ARIPIPRAZOLE 5 MG TABLET 10 MG PO (10:23)
[2024-08-23] MEDS: CETIRIZINE HCL 10 MG TABLET PO (10:23)
[2024-08-23] MEDS: NYSTATIN 15 GM POWDER 1 APPLIC TOPICAL (10:24)
[2024-08-23] MEDS: ACETAMINOPHEN 325 MG TABLET 650 MG PO ×3 (10:31→21:08)
--- NOTE | 2024-08-23 14:28 | PC.NURSE ---
sent Dr. Hamlin a message regardings pts urine output. care handed over to Steffanie Lantigua RN
[2024-08-23] MEDS: LACTATED RINGER'S SOLUTION 1,000 ML 125 ML IV ×2 (14:53→23:04)
[2024-08-23 15:30] VITALS: BP 122/79; PULSE 86; TEMP 36.9; O2SAT 94
[2024-08-23] MEDS: MIRTAZAPINE 15 MG TABLET PO (21:08)
[2024-08-24 02:15] VITALS: BP 134/85; TEMP 36.8; O2SAT 93
[2024-08-24] MEDS: 0.9 % SODIUM CHLORIDE 250 ML 10 ML IV (02:48)
[2024-08-24] MEDS: CEFTRIAXONE 1,000 MG in 0.9 % SODIUM CHLORIDE 50 ML 100 MG IV (02:48)
[2024-08-24 05:41] LABS: Basophils Percent Auto 0.5 % (0.2-2.0); Eosinophils Absolute Auto 0.1 10^3/uL (0.0-0.7); Eosinophils Percent Auto 1.1 % (0.9-7.0); Hematocrit 39.8 % (36.0-48.0); Hemoglobin 12.6 g/dL (12.0-16.0); Immature Granulocytes Abs Auto 0.01 10^3/uL (0.00-0.03); Immature Granulocytes Pct Auto 0.1 % (0.0-0.5); Lymphocytes Absolute Auto 0.9 10^3/uL (1.2-3.8); Mean Corpuscular HGB Conc 31.7 g/dL (29.9-35.2); Mean Corpuscular Hemoglobin 27.5 pg (26.7-34.0); Mean Corpuscular Volume 86.9 fL (81.0-99.0); Mean Platelet Volume 12.3 fL (9.5-13.5); Monocytes Percent Auto 10.9 % (1.7-12.0); Neutrophils Absolute Auto 6.7 10^3/uL (1.4-6.5); Neutrophils Percent Auto 77.4 % (43.0-75.0); Platelet Count 173 10^3/uL (150-450); Red Blood Count 4.58 10^6/uL (4.20-5.40); Red Cell Distribution Width 14.5 % (11.0-15.0); White Blood Count 8.7 10^3/uL (4.0-11.0)
[2024-08-24 05:59] LABS: Anion Gap 10.5; BUN Creatinine Ratio 7.8; Calcium 8.5 mg/dL (8.5-10.1); Carbon Dioxide 28.4 mmol/L (21.0-32.0); Chloride 108 mmol/L (98-107); Estimated GFR (African America >60 (>=60 mL/min/1.73m^2); Estimated GFR (Non-African Ame 56 (>=60 mL/min/1.73m^2); Glucose 96 mg/dL (74-106); Potassium 3.9 mmol/L (3.5-5.1); Sodium 143 mmol/L (136-145)
[2024-08-24 06:00] VITALS: BP 153/86; PULSE 90; TEMP 36.8; O2SAT 90
[2024-08-24] MEDS: LACTATED RINGER'S SOLUTION 1,000 ML 125 ML IV (07:52)
--- NOTE | 2024-08-24 07:54 | P.DS_ITS ---
DS: Providers Provider Date of admission: 08/23/24 01:42 Primary care physician: Kristin Gracia NP Attending physician on admission: Laurel Hamlin Consults: 08/23/24 Physical Therapy Eval and Treat Routine Reason for consultation: weakness Has provider been notified: Yes Discharging clinician: Laurel Hamlin DS: Diagnosis Discharge Diagnosis (1) Urinary tract infection: Qualifiers: Hematuria presence: without hematuria Urinary tract infection type: acute cystitis Qualified Code(s): N30.00 - Acute cystitis without hematuria (2) BRANDON (acute kidney injury): (3) Generalized weakness: (4) Dehydration: (5) Multiple sclerosis: (6) Obesity: Qualifiers: Body mass index: BMI 40.0-44.9 Obesity classification: adult class 3 (BMI >= 40) Obesity type: due to excess calories Serious obesity comorbidity presence: without serious comorbidity Qualified Code(s): E66.813 - Obesity, class 3; E66.01 - Morbid (severe) obesity due to excess calories; Z68.41 - Body mass index [BMI] 40.0-44.9, adult (7) Bipolar 1 disorder: DS: Summary Hospital Course Hospital Course: Patient is a 54 y.o white female with past medical history of Multiple Sclerosis, bipolar disorder who presented to the ER with a 2 week history of urinary urgency, frequency and pain. She had episode of nausea and vomiting prior to arrival. She denies fevers or chills. She gets infusions every 6 months for her MS treatment. She is usually able to get around with a cane but lately has been very weak. ER findings: WBC's 11.8, Cr 1.33, CT of the abd/pelvis WO showed no acute inflammatory process, no hydronephrosis, or ureteral calculus, no bowel perforation or obstruction, scattered diverticula without diverticulitis. UA was positive for UTI. Patient was started on IVF due to BRANDON and tachycardia of 105, and given Rocephin IV and admitted for further plan of care. Patient's symptoms improved. She did get Toradol for back pain. Cr was 1.02, BUN 8 K3.9 and WBC's 8.7 at the time of discharge. Urine culture is still pending at the time of discharge but will treat her with Cipro 500mg BID x 7 days. She has close follow up with her PCP. Physical Therapy recommended home health services and that will be set up by case management prior to discharge. They also recommended using walker. Vitals are stable. Patient will be discharged home today with home health services. She is to return to the ER with any worsening signs or symptoms. Status at Discharge Functional status at discharge: uses cane/walker Time Spent with Patient Time attestation: Total time spent providing and/or coordinating discharge services: Time spent: greater than 30 minutes Exam Narrative Exam Narrative: General: Patient is alert, and oriented to person, place and time with flat affect, proper hygiene, morbid obesity Skin: no visible rashes, or ulcers Head: atraumatic, acephalic Eyes: PERRLA, no nystagmus present, conjunctiva clear, no scleral icterus Ears: normal gross auditory acuity Heart: Normal rate and rhythm, no murmurs/rubs/gallops Lungs: no audible wheezes, crackles and normal breath sounds all lung franks Abdomen: Normal audible bowel sounds, no distension, No palpable masses, no organomegaly, no rebound/guarding/ or rigidity Musculoskeletal: no swelling bilateral lower extremities Neuro: CN II-X grossly intact, normal sensation upper and lower extremities Constitutional Vital Signs, click to edit/add: Last Vital Signs Temp 98.2 F 08/24/24 06:00 Pulse 90 08/24/24 06:00 Resp 18 08/24/24 06:00 BP 153/86 H 08/24/24 06:00 Pulse Ox 90 L 08/24/24 06:00 O2 Del Method Room Air 08/24/24 06:00 DS: Data Data Completed and Pending Labs on day of discharge: Labs from last 24 hours 08/24/24 05:14 WBC 8.7 RBC 4.58 Hgb 12.6 Hct 39.8 MCV 86.9 MCH 27.5 MCHC 31.7 RDW 14.5 Plt Count 173 MPV 12.3 Neut % (Auto) 77.4 H Lymph % (Auto) 10.0 L [place] % (Auto) 10.9 Eos % (Auto) 1.1 Baso % (Auto) 0.5 Neut # (Auto) 6.7 H Lymph # (Auto) 0.9 L [place] # (Auto) 1.0 H Eos # (Auto) 0.1 Baso # (Auto) 0.0 Abs Immat Gran (auto) 0.01 Imm/Tot Granulo (auto) 0.1 Sodium 143 Potassium 3.9 Chloride 108 H Carbon Dioxide 28.4 Anion Gap 10.5 BUN 8.0 Creatinine 1.02 Est GFR ( Amer) >60 Est GFR (Non-Af Amer) 56 L BUN/Creatinine Ratio 7.8 Glucose 96 Calcium 8.5 Preliminary micro results at discharge 08/22/24 22:45 Urine Culture - Preliminary Urine,Clean Catch Pending - Specimen sent to [facility] Discharge Plan Discharge Disposition: Home Health Service Condition: Good Discharge Medications: New ciprofloxacin HCl 500 mg tablet 500 mg PO Q12H 7 Days Qty: 14 0RF Continued cetirizine 10 mg tablet 10 mg PO DAILY buspirone 5 mg tablet 5 mg PO BID aripiprazole 10 mg tablet 10 mg PO DAILY mirtazapine 15 mg tablet 15 mg PO .hs nystatin [Nyamyc] 100,000 unit/gram powder 1 applic TOPICAL DAILY escitalopram oxalate 10 mg tablet 10 mg PO DAILY buspirone 7.5 mg tablet 7.5 mg PO Q8H PRN (Reason: anxiety) Activity: ambulate only with your walker Diet: advance to your usual diet Print Language: Kiswahili Patient Instructions: Urinary Tract Infection in Women (DC) Forms: Portal Instructions Follow Up Appointments: August 31 @ 10:30am with Kristin Gracia NP [phone] Discharge location: Home with [facility]
[2024-08-24] MEDS: NYSTATIN 15 GM POWDER 1 APPLIC TOPICAL (09:05)
[2024-08-24] MEDS: ARIPIPRAZOLE 5 MG TABLET 10 MG PO (09:06)
[2024-08-24] MEDS: BUSPIRONE HCL 10 MG TABLET 5 MG PO (09:06)
[2024-08-24] MEDS: ESCITALOPRAM 10 MG TABLET PO (09:06)
[2024-08-24] MEDS: KETOROLAC TROMETHAMINE 30 MG/ML VIAL IVP (09:06)
[2024-08-24] MEDS: CETIRIZINE HCL 10 MG TABLET PO (09:06)
--- NOTE | 2024-08-24 09:10 | CM.NOTE ---
Rounds made with Dr. Hamlin, discussed with pt discharge to home today. Pt will have PT evaluation prior to discharge for discharge planning.
--- NOTE | 2024-08-24 13:16 | SWNOTE1 ---
SW met with pt to discuss dc needs. Pt lives at home alone. Pt was using a cane at home, but will need a rolling walker for at home. Pt is agreeable to this and ok with SW sending referral to any place. SW also spoke with pt about home health services coming in for some therapy. Pt is agreeable to this. Pt has no prefernce on HH either, as long as insurance covers. Referral sent to [address] Referral included face sheet, ED note, H&P, provider notes, case management report, and PT/OT notes. Referral sent to [facility]. Referral included face sheet, ED note, face to face documentation by physician, script, and PT note.
[2024-08-24 14:43] VITALS: BP 129/80; PULSE 78; TEMP 37.1; O2SAT 93
--- NOTE | 2024-08-24 15:29 | SWNOTE1 ---
SW called [address] and they are still reviewing and checking to see if they have enough nursing in that service area to provide services to patient. SW received call from [facility] and they received referral and will let SW once they get approval from insurance.
--- NOTE | 2024-08-24 16:09 | SWNOTE1 ---
SW called [facility] again and they stated they are still waiting on message back from the coordinator to confirm if they can accept or not.
--- NOTE | 2024-08-25 14:23 | CM.DCFOLLOWU ---
Person spoke with:patient How are you feeling?well How is your pain?none Did you understand your discharge instructions?yes Do you have any questions about your discharge instructions? no Were you given any prescriptions at discharge?yes Were you able to get your prescriptions filled? or son picking up today Do you understand how to take your medications as ordered?yes Do you have any questions about your follow up appointment and do you plan to keep your follow up appointment? no questions, follow up reviewed Is there anything else that you would like to discuss? Informed patient that I spoke to [facility] this morning about walker, but they were still waiting on insurance approval. SW to call [facility] again and reach back out to patient Questions/Comments/Concerns/Other:n/a
--- NOTE | 2024-08-25 15:18 | SWNOTE1 ---
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
== END 2024-08-24 17:50 | disposition home health service (06) ==
LOC: ER 08-23 00:34 → MS 08-23 01:45
PROVIDERS: Registered Nurse; Admitting Provider Family Medicine; Emergency Provider Internal Medicine; PCP Nurse Practitioner; Visit Provider Family Medicine
DX: N30.00 Acute cystitis without hematuria (principal); G35 Multiple sclerosis; R53.1 Weakness; N17.9 Acute kidney failure, unspecified; R00.0 Tachycardia, unspecified; F31.9 Bipolar disorder, unspecified; E86.0 Dehydration; E66.813 Obesity, class 3; Z68.41 Body mass index [BMI] 40.0-44.9, adult; B96.4 Proteus (mirabilis) (morganii) as the cause of diseases classified elsewhere
CPT/HCPCS: 36415; 74176; 80048; 81001; 85007; 85025; 85027; 87040; 87086; 87150; 87186; 96361; 96365; 96366; 96375; 97161; 97530; 99285; G0378; J0696; J1885; J2405

== ENCOUNTER 2024-08-25 19:25 | Emergency (ER) | payer MEDICARE, SELFPAY ==
[2024-08-25 19:27] VITALS: BP 93/64; PULSE 91; TEMP 36.9; O2SAT 99; BMI 48.2
--- NOTE | 2024-08-25 19:35 | ED.ABDPAIN1 ---
HPI - Abdominal Pain General Chief Complaint: Abdominal Pain Stated Complaint: Abdominal Pain Time Seen by Provider: 08/25/24 19:28 Source: patient Mode of arrival: ambulance History of Present Illness HPI narrative: 54 year old female presents to the ED for low abd pain/cramping, diarrhea. Onset was yesterday. She was evaluated here 08/22/24 into 08/23/24 for the same; she was admitted and discharged yesterday. Denies fever, chills, emesis, urinary sx. She was diagnosed with a UTI at the previous visit; she did not go to the pharmacy to pickup her prescription for Cipro. She is here due to the continued intermittent abd discomfort. States she is here for reassurance. She had a CT scan abdomen/pelvis at the previous visit that was negative for acute findings. Related Data Home Medications ?Medication ?Instructions ?Recorded ?Confirmed aripiprazole 10 mg tablet 10 mg PO DAILY 08/23/24 08/23/24 buspirone 5 mg tablet 5 mg PO BID 08/23/24 08/23/24 buspirone 7.5 mg tablet 7.5 mg PO Q8H PRN anxiety 08/23/24 08/23/24 cetirizine 10 mg tablet 10 mg PO DAILY 08/23/24 08/23/24 escitalopram oxalate 10 mg tablet 10 mg PO DAILY 08/23/24 08/23/24 mirtazapine 15 mg tablet 15 mg PO .hs 08/23/24 08/23/24 nystatin 100,000 unit/gram topical 1 applic topical DAILY 08/23/24 08/23/24 powder ([facility]) Previous Rx's ?Medication ?Instructions ?Recorded ciprofloxacin HCl 500 mg tablet 500 mg PO Q12H 7 days #14 tabs 08/24/24 dicyclomine 10 mg capsule 10 mg PO TID PRN abdominal pain 08/25/24 #10 caps Allergies Allergy/AdvReac Type Severity Reaction Status Date / Time No Known Drug Allergies Allergy Verified 08/25/24 19:29 Review of Systems ROS Constitutional Denies: fever or chills Ears, nose, mouth, and throat Denies: throat pain or neck pain Cardiovascular Denies: chest pain Respiratory Denies: shortness of breath or cough Gastrointestinal Reports: abdominal pain and diarrhea; Denies: vomiting Genitourinary Denies: painful urination, urinary frequency, urinary urgency or blood in urine Musculoskeletal Denies: back pain or neck pain Integumentary/Breast Denies: rash Neurological Denies: headache PFSH PFSH Medical History (Updated 08/25/24 @ 20:54 by Myra Lobo) Bipolar 1 disorder ?F31.9 - Bipolar disorder, unspecified (ICD-10) Pressure injury of sacral region, stage 2 ?L89.152 - Pressure ulcer of sacral region, stage 2 (ICD-10) Obesity ?E66.9 - Obesity, unspecified (ICD-10) Multiple sclerosis ?G35 - Multiple sclerosis (ICD-10) Social History Highest level of school completed/degree received: high school graduate Little interest or pleasure in doing things: not at all Feeling down, depressed, or hopeless: not at all Exam Constitutional Vital Signs, click to edit/add: Last Vital Signs Temp 98.5 F 08/25/24 19:27 Pulse 91 H 08/25/24 19:27 Resp 18 08/25/24 19:27 BP 93/64 08/25/24 19:27 Pulse Ox 99 08/25/24 19:27 O2 Del Method Room Air 08/25/24 19:27 Common normals: no apparent distress and oriented x3 General appearance: cooperative HENMT Common normals: moist oral mucous membranes Eye Common normals: conjunctivae normal and no scleral icterus Neck & C-Spine Common normals: supple Respiratory Common normals: normal respiratory effort Effort & inspection: able to speak in complete sentences and symmetric chest movement Cardio Common normals: regular rate and regular rhythm GI Common normals: Normal to inspection, nondistended, normoactive bowel sounds present, soft to palpation and non-tender Neuro Common normals: oriented x3 and moves all extremities Sensorium/orientation: awake and alert Speech: speech normal Course Vital Signs Vital signs: Vital Signs Temperature 98.5 F 08/25/24 19:27 Pulse Rate 91 H 08/25/24 19:27 Respiratory Rate 18 08/25/24 19:27 Blood Pressure 93/64 08/25/24 19:27 Pulse Oximetry 99 08/25/24 19:27 Oxygen Delivery Method Room Air 08/25/24 19:27 Temperature 98.5 F 04/08/25 19:27 Pulse Rate 91 H 08/25/24 19:27 Respiratory Rate 18 08/25/24 19:27 Blood Pressure 93/64 08/25/24 19:27 Pulse Oximetry 99 08/25/24 19:27 Oxygen Delivery Method Room Air 08/25/24 19:27 MDM - Abdominal Pain MDM Narrative Medical decision making narrative: Laboratory studies were unremarkable today. Findings were discussed. She had an unremarkable CT scan abdomen/pelvis at the previous visit. She reported improvement with the Bentyl. She was ambulatory here in the ED. A prescription was provided for bentyl. Follow up with pcp for a recheck, further evaluation and treatment. Medical Records Attestation: I reviewed the patient's medical records. Lab Data Attestation: I reviewed the patient's lab results. Labs: Lab Results 08/25/24 08/25/24 Range/Units 19:37 20:10 WBC 8.7 (4.0-11.0) 10^3/uL RBC 4.61 (4.20-5.40) 10^6/uL Hgb 12.8 (12.0-16.0) g/dL Hct 40.7 (36.0-48.0) % MCV 88.3 (81.0-99.0) fL MCH 27.8 (26.7-34.0) pg MCHC 31.4 (29.9-35.2) g/dL RDW 14.5 (11.0-15.0) % Plt Count 211 (150-450) 10^3/uL MPV 11.9 (9.5-13.5) fL Neut % (Auto) 76.1 H (43.0-75.0) % Lymph % (Auto) 11.8 L (20.5-60.0) % Osborne % (Auto) 9.9 (1.7-12.0) % Eos % (Auto) 1.6 (0.9-7.0) % Baso % (Auto) 0.5 (0.2-2.0) % Neut # (Auto) 6.6 H (1.4-6.5) 10^3/uL Lymph # (Auto) 1.0 L (1.2-3.8) 10^3/uL Osborne # (Auto) 0.9 H (0.3-0.8) 10^3/uL Eos # (Auto) 0.1 (0.0-0.7) 10^3/uL Baso # (Auto) 0.0 (0.0-0.1) 10^3/uL Abs Immat Gran (auto) 0.01 (0.00-0.03) 10^3/uL Imm/Tot Granulo (auto) 0.1 (0.0-0.5) % Sodium 143 (136-145) mmol/L Potassium 3.9 (3.5-5.1) mmol/L Chloride 107 (98-107) mmol/L Carbon Dioxide 30.5 (21.0-32.0) mmol/L Anion Gap 9.4 BUN 9.0 (7.0-18.0) mg/dL Creatinine 1.06 H (0.55-1.02) mg/dL Est GFR ( Amer) >60 (>=60 mL/min/1.73m^2) Est GFR (Non-Af Amer) 54 L (>=60 mL/min/1.73m^2) BUN/Creatinine Ratio 8.5 Glucose 88 (74-106) mg/dL Calcium 9.0 (8.5-10.1) mg/dL Total Bilirubin 0.3 (0.2-1.0) mg/dL AST 23 (15-37) U/L ALT 21 (14-59) U/L Alkaline Phosphatase 92 (46-116) U/L Total Protein 7.2 (6.4-8.2) g/dL Albumin 2.8 L (3.4-5.0) g/dL Globulin 4.4 g/dL Albumin/Globulin Ratio 0.6 Urine Color Lt. yellow (YELLOW) Urine Clarity Clear (CLEAR) Urine pH 6.0 (5.0-9.0) Ur Specific O'Brien 1.020 (1.005-1.025) Urine Protein Trace (NEG/TRACE) mg/dL Urine Glucose (UA) Negative (NEGATIVE) mg/dL Urine Ketones Negative (NEGATIVE) mg/dL Urine Occult Blood Negative (NEGATIVE) Urine Nitrite Negative (NEGATIVE) Urine Bilirubin Negative (NEGATIVE) Urine Urobilinogen 0.2 (0.2-1.0) EU/dL Ur Leukocyte Esterase Negative (NEGATIVE) Discharge Plan Discharge Chief Complaint: Abdominal Pain Clinical Impression: Abdominal pain Patient Disposition: Home, Self-Care Time of Disposition Decision: 20:53 Condition: Good Mode of Transportation: Private Vehicle Prescriptions / Home Meds: New dicyclomine 10 mg capsule 10 mg PO TID PRN (Reason: abdominal pain) Qty: 10 0RF No Action cetirizine 10 mg tablet 10 mg PO DAILY buspirone 5 mg tablet 5 mg PO BID aripiprazole 10 mg tablet 10 mg PO DAILY mirtazapine 15 mg tablet 15 mg PO .hs nystatin [Nyamyc] 100,000 unit/gram powder 1 applic TOPICAL DAILY escitalopram oxalate 10 mg tablet 10 mg PO DAILY buspirone 7.5 mg tablet 7.5 mg PO Q8H PRN (Reason: anxiety) ciprofloxacin HCl 500 mg tablet 500 mg PO Q12H 7 Days Qty: 14 0RF Print Language: Nigerien Instructions: Abdominal Pain (ED) Additional Instructions: Return to the ER for worsening symptoms. Referrals: Kristin Gracia NP [Primary Care Provider] - 1 week Discharge Date/Time: 08/25/24 21:30
--- OUTSIDE RECORDS SUMMARY | 2024-08-25 19:42 | XMS_ITS | CCD ---
Author Organization [facility] Inform ion Partnership [facility] Care Team Providers Care Manager Balance Name Role Phone August CONTROL SYSTEMS DRAFTING OFFICER Unavailable Unavailable August CONTROL SYSTEMS DRAFTING OFFICER Unavailable Unavailable August CONTROL SYSTEMS DRAFTING OFFICER Unavailable Unavailable Jaleesa Lara Unavailable [facility] Primary Care Provider MD Tyshawn Palencia Attending Provider [phone] Valdez Acosta MD Primary Care Provider Tyshawn Palencia Unavailable [phone] Valdez Acosta MD Primary Care Provider Valdez Acosta MD Primary Care Provider [phone] AICHHOLZ, CONTROL SYSTEMS DRAFTING OFFICER KRISTIN Admitting Unavailable AICHHOLZ, CONTROL SYSTEMS DRAFTING OFFICER KRISTIN Attending Unavailable AICHHOLZ, CONTROL SYSTEMS DRAFTING OFFICER KRISTIN Primary Care Unavailable TAMLYN ., YAHAIRA Consulting Unavailable TAMLYN ., YAHAIRA Admitting Unavailable TAMLYN ., YAHAIRA Attending Unavailable AICHHOLZ, CONTROL SYSTEMS DRAFTING OFFICER KRISTIN Primary Care Unavailable TAMLYN ., YAHAIRA Consulting Unavailable THEA LYNN Consulting Unavailable YASH CALLAHAN Consulting Unavailable AICHHOLZ, CONTROL SYSTEMS DRAFTING OFFICER KRISTIN Admitting Unavailable AICHHOLZ, CONTROL SYSTEMS DRAFTING OFFICER KRISTIN Attending Unavailable AICHHOLZ, CONTROL SYSTEMS DRAFTING OFFICER KRISTIN Primary Care Unavailable AICHHOLZ, CONTROL SYSTEMS DRAFTING OFFICER KRISTIN Consulting Unavailable AICHHOLZ, CONTROL SYSTEMS DRAFTING OFFICER KRISTIN Admitting Unavailable AICHHOLZ, CONTROL SYSTEMS DRAFTING OFFICER KRISTIN Attending Unavailable AICHHOLZ, CONTROL SYSTEMS DRAFTING OFFICER KRISTIN Primary Care Unavailable AICHHOLZ, CONTROL SYSTEMS DRAFTING OFFICER KRISTIN Consulting Unavailable DR TULIO BULL Admitting Unavailable MISC, DR ANTUNEZ Attending Unavailable AICHHOLZ, CONTROL SYSTEMS DRAFTING OFFICER KRISTIN Primary Care Unavailable MISC, DR ANTUNEZ Consulting Unavailable Aichholz CAMPGROUND CLEANING ATTENDANT, Kristin Unavailable Maxim Lanza MD Primary Care Provider Valdez Acosta MD Primary Care Provider [phone] VINCE, JESSICA Referring Unavailable PARIS TOLEDO Attending Unavailable DAHBAR, MAZEN Primary Care Unavailable ELIAZAR VAZQUEZ Attending Unavailable DAHBAR, MAZEN Primary Care Unavailable KATERIN MCCOY Attending Unavailable YOUNG, JESSICA Referring Unavailable DAHBAR, MAZEN Primary Care Unavailable YOUNG, JESSICA Referring Unavailable YOUNG, JESSICA Attending Unavailable DAHBAR, MAZEN Primary Care Unavailable SARTHAK ESCOBAR Referring Unavailable DAHBAR, [facility] Primary Care Unavailable , AUGUST L Primary Care Physician Unavailab le GARRYOWENAugust Primary Care Unavailable Brooks, Eliazar T Referring Unavailable Brooks, Eliazar T Attending Unavailable Brooks, Eliazar T Admitting Unavailable NONE, XXXX Primary Care Physician Unavailab Keli Montanez Unavailable Unavailable Brooks, Eliazar T Admitting Unavailable Brooks, Eliazar T Attending Unavailable Brooks, Eliazar T Referring Unavailable Brooks, Eliazar T Admitting Unavailable Brooks, Eliazar T Attending Unavailable Brooks, Eliazar T Referring Unavailable August Primary Care Unavailable Aichholz CAMPGROUND CLEANING ATTENDANT, Kristin Unavailable Myla BENITEZ, Maxim Primary Care Provider Sarah FIGUEROA, Sherrie Unavailable John DIRECTOR OF MATERIALS.CONTROL SYSTEMS DRAFTING OFFICER, Elizabeth Barney Unavailable SHERRIE BOONE Attending Unavailabl [...] VAZQUEZ Attending Unavailable KRISTIN GRACIA Attending Unavailable Tripp Gruber MD Attending Provider Tripp Gruber Attending Unavailable Tripp Gruber Admitting Unavailable Allergies Allergy Classification Reported Allergen(s) Allergy Type Date of Onset Reaction(s) Facility (1 source) -No Environmental Allergies Allergy to substance [facility] Work Phone: (2 sources) Acetaminophen / HYDROcodone; Translations: [Vicodin] Drug Allergy [facility] Repository (2 sources) Penicillins; Translations: [penicillins] Propensity to adverse reactions (disorder) [facility]ository Medications Current Medications Medication Drug [...] hours as needed for shoulder surgical pain., [facility], 167.7, cm, 02/05/24 11:09:00 EDT, Height/Length Dosing, 131.3, kg, 02/05/24 11:09:00 EDT, Weight Dosing Start Date: 02/06/24 Status: Ordered Start: 02-06-2024 End: 04-15-2024 Percocet 5-325 MG tablet See Instructions, 40 tab(s), Refill(s) 0, Take one to two oral every 4 hours as needed for shoulder surgical pain., [facility], 167.7, cm, 02/05/24 11:09:00 EDT, Height/Length Dosing, 131.3, kg, 02/05/24 11:09:00 EDT, Weight Dosing 02/06/2024 04/15/2024 Discontinued (Therapy completed) [id number] 200 actuat albuterol 0.09 mg/actuat metered dose [...] 07/06/2023 Active ARIPiprazole 10 mg oral tablet (12 sources) Atypical Antipsychotic Start: 07-07-2024 End: 08-06-2024 [...] oral solution (1 source) alpha-Adrenergic Agonist, Uncompetitive F-dumufq-J-aspartat e Receptor Antagonist, Sigma-1 Agonist Start: 04-15-2024 [...] Ordered busPIRone hydrochloride 7.5 mg oral tablet (16 sources) Start: 08-18-2024 End: 09-17-2024 take 1 [...] Active cetirizine hydrochloride 10 mg oral tablet (11 sources) Histamine-1 Receptor Antagonist Start: 06-17-2024 End: [...] 90 tablet 1 06/05/2023 Active Estrogens, Conjugated ([facility]) / medroxyPROGESTERone (1 source) Progestin, Estrogen Start: 06-30-2016 FLUoxetine 20 mg oral capsule (13 sources) Serotonin Reuptake Inhibitor Start: 09-05-2021 FLUoxetine [...] guidelines link. mirtazapine 15 mg oral tablet (5 sources) Start: 08-19-19 End: 09-18-19 take 1 [...] daily. Multivitamins and Minerals (2 sources) Start: take 1 tablet by mouth once daily Multivitamins and Minerals 1 tab, Oral, Daily, Prophylaxis Start Date: 06/30/16 Status: Ordered Start: 06-30-2016 take 1 tablet by katharina th once daily Multivitamins and Minerals 1 tab, Oral, Daily Start Date: 06/30/16 Status: Ordered nystatin 100 unt/mg topical powder (11 sources) Polyene Antifungal Start: 08-23-2024 End: 08-23-2025 nystatin (Mycostatin) [id number] UNIT/GM powder Indications: Yeast dermatitis Apply topically 2 (two) times a day 60 g 1 08/23/2024 08/23/2025 Active Start: 03-05-2024 End: 03-20-2024 nystatin (Mycostatin) 123471 UNIT/GM powder Indications: Candidiasis of skin Apply topically 2 (two) times a day for 15 days Apply to affected areas 60 g 1 03/05/2024 03/20/2024 Active End: 03-05-2024 nystatin (Mycostatin) 262777 UNIT/GM powder Apply topically 2 (two) times [...] mg intrav enously once every 6 months. 24 hr oxybutynin chloride 5 mg extended release oral tablet (11 sources) Cholinergic Muscarinic Antagonist Start: End: take 1 tablet by mouth once daily oxybutynin XL (Ditropan-XL) 5 MG 24 hr tablet Indications: Mixed stress and urge urinary incontinence Take 1 tablet (5 mg) by mouth Daily Do not crush, chew, or split. 30 tablet 1 08/23/2024 09/22/2024 Active Start: 03-07-2022 End: 07-10-2023 oxybutynin XL (DITROPAN XL) 5 mg 24 hr tablet predniSONE 20 mg oral tablet (2 sources) Start: 06-26-2023 End: 07-05-2023 take 1 tablet by mouth three times [...] tablet (20 sources) Serotonin Reuptake Inhibitor Start: take 1 tablet by mouth once daily [...] Start: 06-14-2018 End: 06-14-2018 TRAZODONE 50 mg [facility]19 - 06/14/2018 Provider: Start: 05-30-2017 End: 05-30-2017 TRAZODONE 50 mg [facility] 018 - 05/30/2017 Provider: vitamin B12 (12 sources) Vitamin B12 Start: 02-05-2024 take 2500 ug under the tongue once daily Vitamin B12 2,500 mcg, SubLingual, Daily, Refills(s) 0, Prophylaxis Start Date: 02/05/24 Status: Ordered take 1 tablet by mouth once dot y cyanocobalamin (VITAMIN B-12) 1,000 mcg tab Take 1,000 mcg by mouth once daily. Active Comment on above: Take 1,000 mcg by [facility] once daily. Vitamin D [...] tablet (20 sources) HMG-CoA Reductase Inhibitor Start: 11-01-2020 End: 07-10-2023 take 1 tablet by mouth once daily atorvastatin (LIPITOR) 40 mg tablet Take 1 tablet by mouth once daily 30 tablet 0 10/12/2022 07/10/2023 Discontinued (Other) Atorvastatin Jadon cium Active Comment on above: Take 1 tablet by katharina th once daily. Take 1 tablet by katharina th once daily betamethasone 3 mg/ml / betamethasone acetate 3 mg/ml injectable suspension (4 sources) Corticosteroid Start: 04-27-2024 End: 04-27-2024 betamethasone acetate-betamethasone sodium phosphate (Celestone) injection 12 mg Start: 04-27-2024 End: 04-27-2024 12 mg, Intra-articular, Once PRN Procedure, Starting on Sat04/27/24 at 0943, For 1 dose cyclobenzaprine (3 sources) Muscle Relaxant Start: 06-14-2018 End: 06-14-2018 CYCLOBENZAPRINE 10 MG MISC 06/14/2018 - 06/14/2018 Provider: Start: 05-30-2017 End: 05-30-2017 CYCLOBENZAPRINE 10 MG MISC 0 05/30/2017 - 05/30/2017 Provider: Start: 06-30-2016 take 2 tablets by mo [facility] twice daily as needed for muscle spasms [...] (20 sources) Angiotensin Converting Enzyme Inhibitor Start: End: take 1 tablet by mouth once daily lisinopril (ZESTRIL) 10 mg tablet Take 1 tablet by mouth once daily 30 tablet 0 10/12/2022 07/10/2023 Discontinued (Other) Lisinopril Activ e Comment on above: Take [...] Take by mouth 08/18/2024 Discontinued (Therapy completed) teriflunomide 14 mg oral tablet (1 source) [...] sclerosis; Translations: [Multiple sclerosis] Onset: 10-02-2012 Chronic Mycoses (20 sources) Candidiasis of skin; Translations: [Candidiasis of skin and nail] Onset: 03-05-2024 Resolved: 07-02-2024 03-05-2024 Episodic Noninfectious gastroenteritis (1 source) Noninfective gastroenteritis and [...] Chronic Other nutritional; endocrine; and metabolic disorders (9 sources) Body mass index 40+ - severely obese; Translations: [Body mass index (BMI) 45.0-49.9, adult] Onset: 06-25-2024 06-25-2024 Chronic Other nutritional; endocrine; and metabolic disorders (11 sources) Obesity caused by energy imbalance; Translations: [...] Mood disorders Onset: 05-01-2023 Resolved: 05-18-2024 05-01-2023 Other and unspecified benign neoplasm (1 source) [...] Onset: 12-20-2016 Episodic Other lower respiratory disease (20 sources) Cough; Translations: [Acute cough] Onset: 04-15-2024 [...] Test Name Value Interpretation Reference Range Facility Urine Cultureon 08-22-2024 Bacteria identified Cx Nom (U) ORGANISM: Proteus mirabilis (O:PROMIR) Kim Count >100,000 PERFORMED BY: [place] [address] PATHOLOGIST RHINESTONE SETTER CLAIRE PATEL M.D. Normal [facility] Comment on above: Performed By: #### C UU #### [address] MM TOMOSYNTHESIS SCREENING B Ion 06-30-2024 [place] [address] Mammography Report Signed Patient: YAMILKA VASQUEZ MR#: [id number] : 1970 Acct:[id number] Age/Sex: 54 / F ADM Date: 06/30/24 Loc: MAMMO Attending Dr: Kristin Gracia CAMPGROUND CLEANING ATTENDANT Ordering Physician: Kristin Gracia NP Results: Date of Service: 06/30/24 Follow Up: Procedure(s): MM tomosynthesis screening BI Accession Number(s): [id number] cc: Kristin Gracia NP Patient Name: YAMILKA VASQUEZ MR#: [id number] : 1970 Exam Date: 06/30/2024 Ordering Doctor: [...] throat/lung cancer at age 56. LOCATION: The [facility] BREAST COMPOSITION: There are scattered areas [...] Signed By: 06/30/24 1133 DD/ 1132 TD/TT: Engagement Director: [facility] Radiology, Radiologist, - 06/30/2024 [place] [address] Mammography Report Signed Patient: YAMILKA VASQUEZ MR#: [id number] : 1970 Acct:[id number] Age/Sex: 54 / F ADM Date: 06/30/24 Loc: MAMMO Attending Dr: Kristin Gracia NP Ordering Physician: Kristin Gracia NP Results: Date of Service: 06/30/24 Follow Up: Procedure(s): MM tomosynthesis screening BI Accession Number(s): [id number] cc: Kristin Gracia NP Patient Name: YAMILKA VASQUEZ MR#: [id number] : 1970 Exam Date: 06/30/2024 Ordering Doctor: [...] throat/lung cancer at age 56. LOCATION: The [facility] BREAST COMPOSITION: There are scattered areas [...] Signed By: 06/30/24 1133 DD/ 1132 TD/TT: Engagement Director: [facility] Radiology Study observation (narrative) [facility] MM TOMOSYNTHESIS SCREENING B IOrdered By: Radiologist Radiology on 06-30-2024 [facility] [employer] Work Phone: No Panel Informationon 04-27 Alona [...] to verify the correct patient, procedure, equipment, production support developer and site/side marked as required. Patient was prepped and draped in the usual sterile fashion. [facility] XR Shoulder - left 2 Viewson 02-25-2024 Imaging Result: Two views, AP and Lateral, in the office taken today saved to the permanent record shows post surgical change with acromioplasty/partial distal clavulectomy with appropriate coplaning. No acute fracture, dislocation, tumor or infection seen. [facility] Radiology Study observation (narrative) [facility] FRS Main OR Intraoperative Recor don 02-11-2024 Main OR Intraoperative Record Main OR Intraoperative Record IntraOp Document Type FT Summary Primary Physician: Eliazar Brooks DO Finalized Date/Time: 02/11/24 14:09:06 Pt. Name: YAMILKA VASQUEZ/Sex: 1970 Female Med Rec #: [id number] Physician: Eliazar Brooks DO Financial #: [id number] Pt. Type: A Room/Bed: Admit/Disch: 02/10/24 11:39:41 [...] 2 Entry 3 Case Attendee Cynthia BROWN, VALERY, [place] Eliazar Brooks DO, CST, Marlyn Campuzano Role Performed VALERY Surgeon - Primary Scrub - Primary Time [...] Attendee Adams Pak Laura C Role Performed Encyclopedia Research Worker - Primary Scrub - Primary Time In [...] PreOp Antibiotic Yes Given Time Out Cynthia DNP, GRADALL OPERATOR, Bhatt Time Out Complete 02/10/24 14:35:00 Participants N., Zbigniew DO, Eliazar Carbone, Marlyn Kate CST, Adams Pak Miller, Laura C Outcomes Met? Yes Last Modified By: Adams [...] and tissue Entry 1 Skin Integrity Intact, [place], Warm, & Skin Abnormality No Dry Outcomes Met? Yes Last Modified By: Adams Pak 02/10/24 15:02:50 Post-Care Text: The patient is free from signs and symptoms of injury caused by extraneous objects Patient Positioning FT Pre-Care Text: Identifies physical alterations that require additional precautions for procedure-specific positioning, verifies presence of prosthetics (more content not included)... [facility] Operative Reporton Operative Report Operative Report SURGERY DATE: 02/10/2024 SENIOR TECHNOLOGIST: Marlyn Kate C.F.A. PREOPERATIVE DIAGNOSIS: Left shoulder [...] a lateral portal incision utilizing a 90-degree [place] wand as well as 5.0 bone cutter, [...] count correct SPECIMEN: None PATIENT CONDITION: Satisfactory Eliazar Brooks D.O. ca Dictated: 02/10/2024 [id number] Transcribed: 02/10/[address] [facility] Comment on above: Result Comment: Elec [...] scheduled appointment Call for any problems. Where: [address] [place] [id number] [facility] (1) Medications What How Much When Why [...] needed for shoulder surgical pain. Pickup at [facility] Unchanged ergocalciferol (Vitamin D) 1,200 International [...] bedtime) as needed for Sleep Pharmacy Information [facility]: [address] [place], [place] [id number] [phone] Test Results No qualifying data available. Allergies No Known Allergies Problems Ongoing - Any problem that you are currently receiving treatment for. Menopause Mini stroke MS - Multiple sclerosis Smoker Education Materials [place], [place] [facility] AFTER YOUR SHOULDER ARTHROSCOPY [...] have any (more content not included)... [facility] Comment on above: Result Comment: Elec tronically Signed By: Aime ROSA, Brigida Barney\.br\Date and Time Signed: 02/10/24 15:46 EDT Main OR PACU I Recordon 01-19 Main OR PACU I Record Main OR PACU I Rec ord PACU Phase I Document Type FT Summary Primary Physician: Eliazar Brooks DO Finalized Date/Time: 02/10/24 16:23:54 Pt. Name: YAMILKA VASQUEZ/Sex: 1970 Female Med Rec #: [id number] Physician: Eliazar Brooks DO Financial #: [id number] Pt. Type: A Room/Bed: Admit/Disch: 02/10/24 11:39:41 [...] Signed By: Meera Rose RN 02/10/24 16:[address] [facility] Main OR PACU II Recordon Main OR PACU II Record Main OR PACU II Record PACU Phase II Document Type FT Summary Primary Physician: Eliazar Brooks DO Finalized Date/Time: 02/10/24 18:07:34 Pt. Name: YAMILKA VASQUEZ /Sex: 1970 Female Med Rec #: [id number] Physician: Eliazar Brooks DO Financial #: [id number] Pt. Type: A Room/Bed: Admit/Disch: 02/10/24 11:39:41 [...] By: Sherron Deleon RN 02/10/24 18:07 [facility] Main OR Preoperative Recordo n 02-10-2024 Main OR Preoperative Record Main OR Preoperative Record PreOp Document Type FT Summary Primary Physician: Eliazar Brooks DO Finalized Date/Time: 02/10/24 15:51:36 Pt. Name: YAMILKA VASQUEZ /Sex: 1970 Female Med Rec #: [id number] Physician: Eliazar Brooks DO Financial #: [id number] Pt. Type: A Room/Bed: 01/18 Admit/Disch: 02/10/24 11:39:41 - Institution: Case Times [...] Pak 02/10/24 14:59 Adams Pak 02/10/24 15:[address] [facility] Proceduralon 02-10-2024 Procedural Procedural Patient: YAMILKA [...] Using maximal sterile barrier technique per current [facility] guidelines including hand hygeine, Guidance (Ultrasound used [...] Cynthia CRNA under Dr Enriquez's supervision.. Normal [facility] Inpatient Patient Summaryon 02-06-2024 Inpatient Patient Summary Inpatient Patient Summary [facility] [address], [place] [address] [facility] Clinical Discharge Instructions PERSON INFORMATION Name: YAMILKA VASQUEZ [facility]#:[id number] PHYSICIANS Admitting Physician: Eliazar Brooks DO Attending Physician: Eliazar Brooks DO PCP: ROCK CESPEDES, August Discharge Diagnosis: Impingement of left shoulder Comment: PATIENT EDUCATION INFORMATION Instructions: Zbigniew - After Your Shoulder Arthroscopy (Revised 06/17/14) (CUSTOM) Medication Leaflets: Follow up: With: Address: When: Eliazar Brooks [address] [place] [address] [facility] (1) Comments: Keep scheduled appointment Type Location Start [facility] Surgery [facility] Surgical Services 02/10/2024 2:30 PM 02/10/2024 [...] Mouth 2 times a day. Comment: [facility] Outpatient Surgery Discharge Instructionon 02-06-2024 Outpatient Surgery Discharge Instruction Outpatient Surgery Discharge Instruction [place] [id number] Patient Discharge Instructions PERSON INFORMATION Name: YAMILKA [...] THE NEAREST EMERGENCY ROOM OR CALL 911 PEDRO Moreno SHIRLEY F, have received the attached patient education materials/instruction s and have verbalized understanding: May we do a follow up call? Yes No I was present when discharge instructions were given Patient Signature Date Clinican/Nurse Signature Date Follow up: With: Address: When: Eliazar Brooks [address] [place] [address] [facility] (1) Comments: Keep scheduled appointment Type Location Start [facility] Surgery [facility] Surgical Services 02/10/2024 2:30 PM 02/10/2024 [...] to serve you. Thank you for choosing [facility] HERE ARE THE MEDICATION CHANGES THAT [...] times a day. PATIENT EDUCATION INFORMATION Instructions: [place], [place] [facility] AFTER YOUR SHOULDER ARTHROSCOPY [...] medication as (more content not included)... [facility] XR Chest 2 Viewson XR Chest [...] mGy = . DAP = . [facility] BMPon 02-05-2024 Anion gap [Moles/Vol] 11 mmol/L Normal 6-[address] [facility] Comment on above: Performed By: #### 2 [id number] #### [facility] [address] [place] [address] Calcium [Mass/Vol] 9.4 mg/dL Normal 8.9-11.1 [facility] Comment on above: Performed By: #### 2 [id number] #### [facility] [address] [place] [address] Chloride [Moles/Vol] 104 mmol/L Normal 101-111 [facility] Comment on above: Performed By: #### 2 [id number] #### [facility] [address] [place] [address] CO2 [Moles/Vol] 31 mmol/L Normal 21-31 [facility] Comment on above: Performed By: #### 2 071234 #### [facility] [address] [place] [address] Creatinine [Mass/Vol] 0.9 mg/dL Normal 0.5-1.[address] [facility] Comment on above: Performed By: #### 2 [id number] #### [facility] [address] [place] [address] Glucose [Mass/Vol] 93 mg/dL Normal 55-199 [facility] Comment on above: Performed By: #### 2 [id number] #### [facility] [address] [place] [address] Potassium [Moles/Vol] 4.1 mmol/L Normal 3.5-5.[address] [facility] Comment on above: Performed By: #### 2 [id number] #### [facility] [address] [place] [address] Sodium [Moles/Vol] 142 mmol/L Normal 135-145 [facility] Comment on above: Performed By: #### 2 [id number] #### [facility] [address] [place] [address] Urea nitrogen [Mass/Vol] 11 mg/dL Normal 5-21 [facility] Comment on above: Performed By: #### 2 169111 #### [facility] [address] [place] [address] Urea nitrogen/Creatinine [Mass ratio] 12 No Units Normal 10-20 [facility] Comment on above: Performed By: #### 2 177575 #### [facility] [address] [place] [address] CBC w/ Auto Diffon 4 Basophils/100 WBC (Bld) 0.6 % Normal 0.0-2.0 [facility] Comment on above: Performed By: #### 2 [id number] #### [facility] [address] [place] [address] Basophils/Leukocytes Auto (Bld) [Pure # fraction] 0.0 E9/L Normal 0.0-0.2 [facility] Comment on above: Performed By: #### 2 [id number] #### [facility] [address] [place] [address] Eosinophils (Bld) [#/Vol] 0.1 E9/L Normal 0.0-0.5 [facility] Comment on above: Performed By: #### 2 557068 #### [facility] [address] [place] [address] Eosinophils/100 WBC (Bld) 1.2 % Normal 0.0-8.0 [facility] Comment on above: Performed By: #### 2 843287 #### [facility] [address] [place] [address] Erythrocyte distribution width (RBC) [Ratio] 17.5 % High 10.9-14.2 [facility] Comment on above: Performed By: #### 2 [id number] #### [facility] [address] [place] [address] Hematocrit (Bld) [Volume fraction] 37.9 % Normal 34.0-46.0 [facility] Comment on above: Performed By: #### 2 859566 #### [facility] [address] [place] [address] Hemoglobin (Bld) [Mass/Vol] 12.6 g/dL Normal 12.0-16.0 [facility] Comment on above: Performed By: #### 2 383239 #### [facility] [address] [place] [address] Lymphocytes (Bld) [#/Vol] 0.8 E9/L Low 1.0-4.0 [facility] Comment on above: Performed By: #### 2 216014 #### [facility] [address] [place] [address] Lymphocytes/100 WBC (Bld) 11.1 % Low 14.0-50.0 [facility] Comment on above: Performed By: #### 2 487260 #### [facility] [address] [place] [address] MCH (RBC) [Entitic mass] 27.8 pg Normal 27.0-34.0 [facility] Comment on above: Performed By: #### 2 024551 #### [facility] [address] [place] [address] MCHC (RBC) [Mass/Vol] 33.2 g/dL Normal 31.4-36.[address] [facility] Comment on above: Performed By: #### 2 326128 #### [facility] [address] [place] [address] MCV (RBC) [Entitic vol] 83.9 fL Normal 80.0-100.0 [facility] Comment on above: Performed By: #### 2 014883 #### [facility] [address] [place] [address] Monocytes (Bld) [#/Vol] 0.8 E9/L Normal 0.2-1.0 [facility] Comment on above: Performed By: #### 2 730661 #### [facility] [address] [place] [address] Neutrophils (Bld) [#/Vol] 5.4 E9/L Normal 2.0-7.5 [facility] Comment on above: Performed By: #### 2 363439 #### [facility] [address] [place] [address] Neutrophils/100 WBC (Bld) 76.4 % High 36.0-75.0 [facility] Comment on above: Performed By: #### 2 047836 #### [facility] [address] [place] [address] Platelet 195.0 E9/L Normal 150.0-500.0 [facility] Comment on above: Performed By: #### 2 248851 #### [facility] [facility] [address] [place] [address] Platelet mean volume (Bld) [Entitic vol] 10.4 fL Normal 6.4-10.8 [facility] Comment on above: Performed By: #### 2 [id number] #### [facility] [address] [place] [address] RBC (Bld) [#/Vol] 4.5 E12/L Normal 4.3-5.9 [facility] Comment on above: Performed By: #### 2 [id number] #### [facility] [address] [place] [address] WBC corrected for nucl RBC Auto (Bld) [#/Vol] 7.1 E9/L Normal 4.0-11.0 [facility] Comment on above: Performed By: #### 2 [id number] #### [facility] [address] [place] [address] eGFRon 02-05-2024 eGFR 75 mL/min/1.73 m2 Normal >=59 [facility] Comment on above: Order Comment: Order added by Discern Expert. Performed By: #### 1 [id number] ####[facility] [address] [place] [address] TBH UA (CLEAN/CATCH) MICROSC OPIC IF INDICATEon [...] SPECIFIC GRAVITY URINE 1.010 1.005 - 1.025 [facility] URINE MICROSCOPIC INDICATED NO [facility] UROBILINOGEN URINE 0.2 EU/dL 0.2 - 1.0 EU/dL [facility]-2023 CNPN Telephone (MARK) YAMILKA VASQUEZ ([id number]) 1970 F Date Time Provider Department 12/19/23 NURSE BARBOUR [facility] FLOR[facility] During your visit today, we [...] Research exam [Z00.6] 11/27/2012 Encounter Status:Closed by KATHLEEN PSSSHE on 12/19/23 Normal [facility] MR SHOULDER LEFT WO IV CONTR [...] tendon. Mild glenohumeral osteoarthritis. ELECTRONICALLY SIGNED BY: DO Cynthia Boyle Not Available Comment on above: Order Comment: BB in left knee Previous MRI 7-8 years ago oS 08-21-2023 [facility] Telephone ([facility]) YAMILKA VASQUEZ ([id number]) 1970 F Date Time Provider Department 08/21/23 [facility] visit today, we recorded the following information about you: Renuka Ellison 08/21/2023 4:19 PM Signed Kriss Call Name of caller : Yamilka Vasquez Relationship to patient: Self Return call phone number : [phone] Reason for call : Other : Brief [...] of spine [M48.02] Order(s):CONSULT TO SPINE SURGERY [[id number]] Order #: [id number]: 1 FUTURE Prescriptions as of 08/22/2023 - [...] Encounter Status:Closed by ELIZABETH VICTORIA on 08/22/23 [facility] So 07-15-2023 [facility] YAMILKA VASQUEZ ([id number]) 1970 F Date Time Provider Department 07/15/23 [...] since c-spine MRI was completed locally outside [place] in April. Orders already placed Elizabeth Victoria RN 07/16/2023 2:21 PM Signed Called patient, no answer. Message left to return call to office when able. MOE Spencer Megan A, RN 07/17/2023 9:04 AM Signed Called patient, no answer. Message left indicating TappnGo message would be sent with reason for [...] sclerosis (HCC) [G35] Order(s):MRI BRAIN WO/W IVCON [[id number]] Order #: [id number] FUTURE iv contrast (will be provided with [...] Encounter Status:Closed by ELIZABETH VICTORIA on 07/17/23 [facility] CNOVon 07-10-2023 CNOV Office Visit (PAINLN ) YAMILKA VASQUEZ ([id number]) 1970 F Date Time Provider Department 07/10/23 6:00 PM [facility]INLN During your visit today, we recorded the following information about you: Pulse Weight Height 89/minute 134.3 kg 1.676 m Paris [place], DO 07/12/2023 11:26 AM Signed [facility] Initial Evaluation July 10, 2023 This appointment was requested by Jessica Clarke PA-C, for my medical opinion regarding the evaluation and management of the patient's Yamilka Vasquez problems, and my final recommendations will be communicated to the requesting health care provider by way of the shared medical record for internal providers or letter via the [employer] for external providers. 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 Normal [facility] CBC W Auto Differential pane l (Bld)on 05-22-2023 Basophils (Bld) [#/Vol] 0.05 10*3/uL Normal <0.11 [facility] Comment on above: Order Comment: Speci men Type: BLOOD SPECIMENOrdering Facility: [facility] Address: [address] [place] [address] Performed By: #### 5 7021-8 ####[facility] [id number] [place] [address] [place] Basophils/100 WBC (Bld) 0.5 % Normal [facility] Comment on above: Order Comment: Speci men Type: BLOOD SPECIMENOrdering Facility: [facility] Address: [address] [place] [address] Performed By: #### 5 7021-8 ####[facility] [id number] [place] [address] [place] Differential cell count method Nom (Bld) Auto Normal [facility] Comment on above: Order Comment: Speci men Type: BLOOD SPECIMENOrdering Facility: [facility] Address: [address] [place] [address] Performed By: #### 5 7021-8 ####[facility] [id number] [place] [address] [place] Eosinophils (Bld) [#/Vol] 0.19 10*3/uL Normal <0.46 [facility] Comment on above: Order Comment: Speci men Type: BLOOD SPECIMENOrdering Facility: [facility] Address: [address] [place] [address] Performed By: #### 5 7021-8 ####[facility] [id number] [place] [address] [place] Eosinophils/100 WBC (Bld) 2.1 % Normal [facility] Comment on above: Order Comment: Speci men Type: BLOOD SPECIMENOrdering Facility: [facility] Address: [address] [place] [address] Performed By: #### 5 7021-8 ####[facility] [id number] [place] [address] [place] Erythrocyte distribution width (RBC) [Ratio] 15.5 % High 11.5-15.0 [facility] Comment on above: Order Comment: Speci men Type: BLOOD SPECIMENOrdering Facility: [facility] Address: [address] [place] [address] Performed By: #### 5 7021-8 ####[facility] [id number] [place] [address] [place] Hematocrit (Bld) [Volume fraction] 42.1 % Normal 36.0-46.0 [facility] Comment on above: Order Comment: Speci men Type: BLOOD SPECIMENOrdering Facility: [facility] Address: [address] [place] [address] Performed By: #### 5 7021-8 ####[facility] [id number] [place] [address] [place] Hemoglobin (Bld) [Mass/Vol] 12.9 g/dL Normal 11.5-15.5 [facility] Comment on above: Order Comment: Speci men Type: BLOOD SPECIMENOrdering Facility: [facility] Address: [address] [place] [address] Performed By: #### 5 7021-8 ####[facility] [id number] [place] [address] [place] Immature granulocytes (Bld) [#/Vol] 0.04 10*3/uL Normal <0.10 [facility] Comment on above: Order Comment: Speci men Type: BLOOD SPECIMENOrdering Facility: [facility] Address: [address] [place] [address] Performed By: #### 5 7021-8 ####[facility] [id number] [address] [place] Immature granulocytes/100 WBC (Bld) 0.4 % Normal [facility] Comment on above: Order Comment: Speci men Type: BLOOD SPECIMENOrdering Facility: [facility] Address: [address] [place] [address] Performed By: #### 5 7021-8 ####[facility] [id number] [place] [address] [place] Lymphocytes (Bld) [#/Vol] 0.82 10*3/uL Low 1.00-4.00 [facility] Comment on above: Order Comment: Speci men Type: BLOOD SPECIMENOrdering Facility: [facility] Address: [address] [place] [address] Performed By: #### 5 7021-8 ####[facility] [id number] [address] [place] Lymphocytes/100 WBC (Bld) 9.0 % Normal [facility] Comment on above: Order Comment: Speci men Type: BLOOD SPECIMENOrdering Facility: [facility] Address: [address] [place] [address] Performed By: #### 5 7021-8 ####[facility] [id number] [place] [address] [place] MCH (RBC) [Entitic mass] 26.9 pg Normal 26.0-34.0 [facility] Comment on above: Order Comment: Speci men Type: BLOOD SPECIMENOrdering Facility: [facility] Address: [address] [place] [address] Performed By: #### 5 7021-8 ####[facility] [id number] [place] [address] [place] MCHC (RBC) [Mass/Vol] 30.6 g/dL Normal 30.5-36.0 [facility] Comment on above: Order Comment: Speci men Type: BLOOD SPECIMENOrdering Facility: [facility] Address: [address] [place] [address] Performed By: #### 5 7021-8 ####[facility] [id number] [place] [address] [place] MCV (RBC) [Entitic vol] 87.9 fL Normal 80.0-100.0 [facility] Comment on above: Order Comment: Speci men Type: BLOOD SPECIMENOrdering Facility: [facility] Address: [address] [place] [address] Performed By: #### 5 7021-8 ####[facility] [id number] [place] [address] [place] Monocytes (Bld) [#/Vol] 0.93 10*3/uL High <0.87 [facility] Comment on above: Order Comment: Speci men Type: BLOOD SPECIMENOrdering Facility: [facility] Address: [address] [place] [address] Performed By: #### 5 7021-8 ####[facility] [id number] [place] [address] [place] Monocytes/100 WBC (Bld) 10.2 % Normal [facility] Comment on above: Order Comment: Speci men Type: BLOOD SPECIMENOrdering Facility: [facility] Address: [address] [place] [address] Performed By: #### 5 7021-8 ####[facility] [id number] [place] [address] [place] Neutrophils (Bld) [#/Vol] 7.07 10*3/uL Normal 1.45-7.50 [facility] Comment on above: Order Comment: Speci men Type: BLOOD SPECIMENOrdering Facility: [facility] Address: [address] [place] [address] Performed By: #### 5 7021-8 ####[facility] [id number] [place] [address] [place] Neutrophils/100 WBC (Bld) 77.8 % Normal [facility] Comment on above: Order Comment: Speci men Type: BLOOD SPECIMENOrdering Facility: [facility] Address: [address] [place] [address] Performed By: #### 5 7021-8 ####[facility] [id number] [place] [address] [place] Nucleated RBC (Bld) [#/Vol] 10*3/uL Normal <0.01 [facility] Comment on above: Order Comment: Speci men Type: BLOOD SPECIMENOrdering Facility: [facility] Address: [address] [place] [address] Performed By: #### 5 7021-8 ####[facility] [id number] [place] [address] [place] Nucleated RBC/100 WBC (Bld) [Ratio] 0.0 /100 WBC Normal [facility] Comment on above: Order Comment: Speci men Type: BLOOD SPECIMENOrdering Facility: [facility] Address: [address] [place] [address] Performed By: #### 5 7021-8 ####[facility] [id number] [place] [address] [place] Platelet mean volume (Bld) [Entitic vol] 12.4 fL Normal 9.0-12.7 [facility] Comment on above: Order Comment: Speci men Type: BLOOD SPECIMENOrdering Facility: [facility] Address: [address] [place] [address] Performed By: #### 5 7021-8 ####[facility] [id number] [place] [address] [place] Platelets (Bld) [#/Vol] 208 10*3/uL Normal 150-400 [facility] Comment on above: Order Comment: Speci men Type: BLOOD SPECIMENOrdering Facility: [facility] Address: [address] [place] [address] Performed By: #### 5 7021-8 ####[facility] [id number] [place] [address] [place] RBC (Bld) [#/Vol] 4.79 10*6/uL Normal 3.90-5.20 [facility] Comment on above: Order Comment: Speci men Type: BLOOD SPECIMENOrdering Facility: [facility] Address: [address] [place] [address] Performed By: #### 5 7021-8 ####[facility] [id number] [place] [address] [place] WBC (Bld) [#/Vol] 9.10 10*3/uL Normal 3.70-11.00 [facility] Comment on above: Order Comment: Speci men Type: BLOOD SPECIMENOrdering Facility: [facility] Address: [address] [place] [address] Performed By: #### 5 7021-8 ####[facility] [id number] [place] [address] [place] CD19 ABSOLUTE COUNTon 2023 CD3-CD19+ cells (Bld) [#/Vol] 219 cells/uL Normal 75-660 [facility] Comment on above: Order Comment: Speci men Type: BLOOD SPECIMENOrdering Facility: [facility] Address: [address] [place] [address] Performed By: #### A BS19 ####[facility] [id number] [place] [address] [place] CD3-CD19+ cells/100 cells (Bld) 23 % High 5-22 [facility] Comment on above: Order Comment: Speci men Type: BLOOD SPECIMENOrdering Facility: [facility] Address: [facility] [place] [address] Performed By: #### A BS19 ####[facility] [id number] [place] [address] [place] Lymphocytes/100 WBC FC (Bld) Normal [facility] Comment on above: Order Comment: Speci men Type: BLOOD SPECIMENOrdering Facility: [facility] Address: [place] [address] Performed By: #### A BS19 ####[facility] [id number] [address] [place] CNOVon 05-22-2023 CNOV Office Visit (BERTA ) YAMILKA VASQUEZ ([id number]) 1970 F Date Time Provider Department 05/22/23 [...] her tubes tied. Referring Provider: SARTHAK ESCOBAR [[id number]] Allergies As of Date: 05/22/2023 (No Known Allergies) Date Reviewed: 10/11/2022 Reviewed by: Maryam Cabrera, RN - Fully Assessed Primary Visit Diagnosis:Multiple sclerosis (HCC) [G35] Other Visit Diagnosis:Multiple sclerosis, relapsing-remitting (HCC) [G35] Order(s):TREATMENT PARAMETER-NOT NEEDED [[id number]] Order #: [id number]: 1 BCN CD20 NURSING COMMUNICATION [48893577] Order #: [id number]: 1 BCN NURSING COMMUNICATION [9252498] Order #: [id number]: 1 CD19 ABSOLUTE COUNT [SQABS19] Order #: [id number] FUTURE [] methylPREDNISolone sod succinate(PF) 100 mg injection (SOLU-Medrol)Disp: Rfl: [] acetaminophen 1,000 mg tab(s) (TYLENOL)Disp: Rfl: [] diphenhydrAMINE 50 mg (BENADRYL)Disp: Rfl: [] ocrelizumab 600 mg in NaCl 0.9% 500 mL (OCREVUS)Disp: Rfl: CBC + DIFF [SQCBCDIF] Order #: [id number]. #:[id number] COMP METABOLIC PANEL [SQCMP] Order #: [id number]. #:[id number] IGG [SQIGG] Order #: [id number]. #:[id number] IGM [SQIGM] Order #: [id number]. #:[id number] CD19 ABSOLUTE COUNT [SQABS19] Order #: [id number]. #:[id number] Prescriptions as of 05/23/2023 - lisinopril (ZESTRIL) [...] Status:Closed by SHE BRAND on 05/22/23 Normal [facility] Comprehensive metabolic 2000 panelon 05-22-2023 Albumin [Mass/Vol] 4.0 g/dL Normal 3.9-4.9 [facility] Comment on above: Order Comment: Speci men Type: BLOOD SPECIMENOrdering Facility: [facility] Address: [address] [place] [address] Performed By: #### 2 4323-8 ####[facility] [id number] [place] [address] [place] ALP [Catalytic activity/Vol] 90 U/L Normal 34-123 [facility] Comment on above: Order Comment: Speci men Type: BLOOD SPECIMENOrdering Facility: [facility] Address: [address] [place] [address] Performed By: #### 2 4323-8 ####[facility] [id number] [place] [address] [place] ALT [Catalytic activity/Vol] 23 U/L Normal 7-38 [facility] Comment on above: Order Comment: Speci men Type: BLOOD SPECIMENOrdering Facility: [facility] Address: [address] [place] [address] Performed By: #### 2 4323-8 ####[facility] [id number] [place] [address] [place] Anion gap [Moles/Vol] 13 mmol/L Normal 9-18 [facility] Comment on above: Order Comment: Speci men Type: BLOOD SPECIMENOrdering Facility: [facility] Address: [address] [place] [address] Performed By: #### 2 4323-8 ####[facility] [id number] [place] [address] [place] AST [Catalytic activity/Vol] 25 U/L Normal 13-35 [facility] Comment on above: Order Comment: Speci men Type: BLOOD SPECIMENOrdering Facility: [facility] Address: [address] [place] [address] Performed By: #### 2 4323-8 ####[facility] [id number] [place] [address] [place] Bilirubin [Mass/Vol] 0.3 mg/dL Normal 0.2-1.3 [facility] Comment on above: Order Comment: Speci men Type: BLOOD SPECIMENOrdering Facility: [facility] Address: [address] [place] [address] Performed By: #### 2 4323-8 ####[facility] [id number] [place] [address] [place] Calcium [Mass/Vol] 9.4 mg/dL Normal 8.5-10.2 [facility] Comment on above: Order Comment: Speci men Type: BLOOD SPECIMENOrdering Facility: [facility] Address: [address] [place] [address] Performed By: #### 2 4323-8 ####[facility] [id number] [place] [address] [place] Chloride [Moles/Vol] 103 mmol/L Normal 97-105 [facility] Comment on above: Order Comment: Speci men Type: BLOOD SPECIMENOrdering Facility: [facility] Address: [address] [place] [address] Performed By: #### 2 4323-8 ####[facility] [id number] [place] [address] [place] CO2 [Moles/Vol] 27 mmol/L Normal 22-30 [facility] Comment on above: Order Comment: Speci men Type: BLOOD SPECIMENOrdering Facility: [facility] Address: [address] [place] [address] Performed By: #### 2 4323-8 ####[facility] [id number] [place] [address] [place] Creatinine [Mass/Vol] 1.04 mg/dL High 0.58-0.96 [facility] Comment on above: Order Comment: Speci men Type: BLOOD SPECIMENOrdering Facility: [facility] Address: [address] [place] [address] Performed By: #### 2 4323-8 ####[facility] [id number] [place] [address] [place] Creatinine and Glomerular filtration rate.predicted panel (S/P/Bld) 64 mL/min/1.73m??? Normal >=60 [facility] Comment on above: Order Comment: Speci men Type: BLOOD SPECIMENOrdering Facility: [facility] Address: [address] [place] [address] Result Comment: Karyn mated Glomerular Filtration Rate [...] actual GFR. Performed By: #### 2 4323-8 ####[facility] [id number] [place] [address] [place] Glucose [Mass/Vol] 88 mg/dL Normal 74-99 [facility] Comment on above: Order Comment: Speci men Type: BLOOD SPECIMENOrdering Facility: [facility] Address: [address] [place] [address] Result Comment: The [place] Diabetes Association (ADA) provides guidance for cutoff [...] Standards of Medical Care in Diabetes 2016, [place] [employer]. Diabetes Care. 2016.39(Suppl 1). Performed By: #### 2 4323-8 ####[facility] [id number] [place] [address] [place] Potassium [Moles/Vol] 3.7 mmol/L Normal 3.7-5.1 [facility] Comment on above: Order Comment: Speci men Type: BLOOD SPECIMENOrdering Facility: [facility] Address: [address] [place] [address] Performed By: #### 2 432-8 ####[facility] [id number] [place] [address] [place] Protein [Mass/Vol] 7.1 g/dL Normal 6.3-8.0 [facility] Comment on above: Order Comment: Speci men Type: BLOOD SPECIMENOrdering Facility: [facility] Address: [address] [place] [address] Performed By: #### 2 4323-8 ####[facility] [id number] [place] [address] [place] Sodium [Moles/Vol] 143 mmol/L Normal 136-144 [facility] Comment on above: Order Comment: Speci men Type: BLOOD SPECIMENOrdering Facility: [facility] Address: [address] [place] [address] Performed By: #### 2 4323-8 ####[facility] [id number] [place] [address] [place] Urea nitrogen [Mass/Vol] 17 mg/dL Normal 7-21 [facility] Comment on above: Order Comment: Speci men Type: BLOOD SPECIMENOrdering Facility: [facility] Address: [address] [place] [address] Performed By: #### 2 4323-8 ####[facility] [id number] [place] [address] [place] IgG SerPl-mCncon 05-22-2023 IgG [Mass/Vol] 954 mg/dL Normal 700-1600 [facility] Comment on above: Order Comment: Speci men Type: BLOOD SPECIMENOrdering Facility: [facility] Address: [address] [place] [address] Performed By: #### 2 465-3, 2472-9 ####[facility] [id number] [place] [address] [place] IgM SerPl-mCncon 05-22-2023 IgM [Mass/Vol] 74 mg/dL Normal 40-230 [facility] Comment on above: Order Comment: Speci men Type: BLOOD SPECIMENOrdering Facility: [facility] Address: [address] [place] [address] Performed By: #### 2 465-3, 2472-9 ####[facility] [id number] [place] [address] [place] So 05-14-2023 JASMIN Telephone (CHANEL) YAMILKA VASQUEZ ([id number]) 1970 F Date Time Provider Department 05/14/23 YOUNG, JESSICA NIQ During your visit today, we recorded the [...] Status:Closed by MICHELLE HAINES on 05/14/23 Normal [facility] PREG HCG QUALon 09-21-2022 , QUAL Negative Normal NEGATIVE [facility] Comment on above: Performed By: #### P REG #### [facility] [address] [place] [address] Dr. Angel Li IMMUNOGLOBULIN IGG QUANTITAT IVEon 06-06-2022 Immunoglobulin G, Qn, Serum 1032 mg/dL Normal 586-1602 [facility] Comment on above: Performed By: #### I MIGGQN #### [facility] [address] [place] [address] [address] Angel Li IMMUNOGLOBULIN IGM QUANTITAT IVEon 06-06-2022 Immunoglobulin M, Qn, Serum 46 mg/dL Normal 26-217 [facility] Comment on above: Performed By: #### I MIGMQN #### [facility] [address] [place] [address] Dr. Angel Li CBC AUTO DIFFon 06-05-2022 BASO # 0.0 103/ul Normal 0.0-0.1 [facility] Comment on above: Performed By: #### C BC #### [facility] [address] [place] [address] Dr. Angel Li Basophils/100 WBC (Bld) 0.5 % Normal 0.2-2.0 [facility] Comment on above: Performed By: #### C BC #### [facility] [address] [place] [address] Dr. Angel Li EO # 0.2 103/ul Normal 0.0-0.7 [facility] Comment on above: Performed By: #### C BC #### [facility] [address] [place] [address] Dr. Angel Li Eosinophils/100 WBC (Bld) 2.6 % Normal 0.9-7.0 [facility] Comment on above: Performed By: #### C BC #### [facility] [address] [place] [address] Dr. Angel Li Erythrocyte distribution width (RBC) [Ratio] 14.5 % Normal 11.0-15.0 [facility] Comment on above: Performed By: #### C BC #### [facility] [address] [place] [address] Dr. Angel Li Hematocrit (Bld) [Volume fraction] 36.5 % Normal 36.0-48.0 [facility] Comment on above: Performed By: #### C BC #### [facility] [address] [place] [address] Dr. Angel Li Hemoglobin (Bld) [Mass/Vol] 11.8 g/dL Critically low 12.0-16.0 [facility] Comment on above: Performed By: #### C BC #### [facility] [address] [place] [address] Dr. Angel Li IG # 0.03 10e3/ul Normal 0.00-0.03 [facility] Comment on above: Performed By: #### C BC #### [facility] [address] [place] [address] Dr. Angel Li IG % 0.4 % Normal 0.0-0.5 [facility] Comment on above: Performed By: #### C BC #### [facility] [address] [place] [address] Dr. Angel Li LYMPH # 0.8 103/ul Critically low 1.2-3.8 [facility] Comment on above: Performed By: #### C BC #### [facility] [address] [place] [address] Dr. Angel Li Lymphocytes/100 WBC (Bld) 9.8 % Critically low 20.5-60.0 [facility] Comment on above: Performed By: #### C BC #### [facility] [address] [place] [address] Dr. Angel Li MANUAL DIFF REQ NO Normal [facility] Comment on above: Performed By: #### C BC #### [facility] [address] [place] [address] Dr. Angel Li MCH (RBC) [Entitic mass] 29.0 pg Normal 26.7-34.0 [facility] Comment on above: Performed By: #### C BC #### [facility] [address] [place] [address] Dr. Angel Li MCHC (RBC) [Mass/Vol] 32.3 g/dL Normal 29.9-35.2 [facility] Comment on above: Performed By: #### C BC #### [facility] [address] [place] [address] Dr. Angel Li MCV (RBC) [Entitic vol] 89.7 fL Normal 81.0-99.0 [facility] Comment on above: Performed By: #### C BC #### [facility] [address] [place] [address] Dr. Angel Li MONO # 1.0 103/ul Critically high 0.3-0.8 [facility] Comment on above: Performed By: #### C BC #### [facility] [address] [place] [address] Dr. Angel Li Monocytes/100 WBC (Bld) 13.0 % Critically high 1.7-12.0 [facility] Comment on above: Performed By: #### C BC #### [facility] [address] [place] [address] Dr. Angel Li NEUT # 5.9 103/ul Normal 1.4-6.5 [facility] Comment on above: Performed By: #### C BC #### [facility] [address] [place] [address] Dr. Angel Li Neutrophils/100 WBC (Bld) 73.7 % Normal 43.0-75.0 [facility] Comment on above: Performed By: #### C BC #### [facility] [address] [place] [address] Dr. Angel Li Platelet mean volume (Bld) [Entitic vol] 11.6 fL Normal 9.5-13.5 [facility] Comment on above: Performed By: #### C BC #### [facility] [address] [place] [address] Dr. Angel Li PLT 200 103/ul Normal 150-450 [facility] Comment on above: Performed By: #### C BC #### [facility] [address] [place] [address] Dr. Angel Li RBC 4.07 106/ul Critically low 4.20-5.40 [facility] Comment on above: Performed By: #### C BC #### [facility] [address] [place] [address] Dr. Angel Li WBC 8.0 103/ul Normal 4.0-11.0 [facility] Comment on above: Performed By: #### C BC #### [facility] [address] [place] [address] Dr. Angel Li PROF 14(COMP METB)on 023 Albumin [Mass/Vol] 3.4 g/dL Normal 3.4-5.0 [facility] Comment on above: Performed By: #### C MP #### [facility] [address] [place] [address] Dr. Angel Li Albumin/Globulin [Mass ratio] 0.9 {ratio} Normal [facility] Comment on above: Performed By: #### C MP #### [facility] [address] [address] [address] Angel Li ALP [Catalytic activity/Vol] 122 U/L Critically high 46-116 [facility] Comment on above: Performed By: #### C MP #### [facility] [address] [place] [address] Dr. nAgel Li ALT [Catalytic activity/Vol] 35 U/L Normal 14-59 [facility] Comment on above: Performed By: #### C MP #### [facility] [address] [place] [address] Dr. Angel Li Anion gap [Moles/Vol] 9.7 mmol/L Normal [facility] Comment on above: Performed By: #### C MP #### [facility] [address] [place] [address] Dr. Angel Li AST [Catalytic activity/Vol] 32 U/L Normal 15-37 [facility] Comment on above: Performed By: #### C MP #### [facility] [address] [place] [address] Dr. Angel Li Bilirubin [Mass/Vol] 0.4 mg/dL Normal 0.2-1.0 [facility] Comment on above: Performed By: #### C MP #### [facility] [address] [place] [address] Dr. Angel Li Calcium [Mass/Vol] 9.0 mg/dL Normal 8.5-10.1 [facility] Comment on above: Performed By: #### C MP #### [facility] [address] [place] [address] Dr. Angel Li Chloride [Moles/Vol] 103 mmol/L Normal 98-107 [facility] Comment on above: Performed By: #### C MP #### [facility] [address] [address] [address] Angel Li CO2 [Moles/Vol] 32.3 mmol/L Critically high 21.0-32.0 [facility] Comment on above: Performed By: #### C MP #### [facility] [address] [address] [address] Angel Li Creatinine [Mass/Vol] 0.97 mg/dL Normal 0.55-1.02 [facility] Comment on above: Performed By: #### C MP #### [facility] [address] [address] [address] Angel Li EGFR-AF BURMESE >60 Normal >=60 [facility] Comment on above: Performed By: #### C MP #### [facility] [address] [address] [address] Angel Li EGFR-NON AF BURMESE =60 Normal >=60 [facility] Comment on above: Performed By: #### C MP #### [facility] [address] [address] [address] Angel Li Globulin (S) [Mass/Vol] 3.7 g/dL Normal [facility] Comment on above: Performed By: #### C MP #### [facility] [address] [place] [address] Dr. Angel Li Glucose [Mass/Vol] 87 mg/dL Normal 74-106 [facility] Comment on above: Performed By: #### C MP #### [facility] [address] [address] [address] Angel Li Potassium [Moles/Vol] 4.0 mmol/L Normal 3.5-5.1 [facility] Comment on above: Performed By: #### C MP #### [facility] [address] [place] [address] Dr. Angel Li Protein [Mass/Vol] 7.1 g/dL Normal 6.4-8.2 [facility] Comment on above: Performed By: #### C MP #### [facility] [address] [address] [address] Angel Li Sodium [Moles/Vol] 141 mmol/L Normal 136-145 [facility] Comment on above: Performed By: #### C MP #### [facility] [address] [address] [address] Angel Li Urea nitrogen [Mass/Vol] 11.0 mg/dL Normal 7.0-18.0 [facility] Comment on above: Performed By: #### C MP #### [facility] [address] [address] [address] Angel Li Urea nitrogen/Creatinine [Mass ratio] 11.3 mg/mg Normal [facility] Comment on above: Performed By: #### C MP #### [facility] [address] [place] [address] Dr. Angel Li PAP ACOG PANEL 2: 30 to 65on 03-13-2022 . . Normal [facility] Comment on above: Result Comment: Perf ormed at: WB Performed By: #### [id number] #### [facility] [address] [place] [address] Dr. Angel Li Age Gdln ACOG Testing 30-65 [facility] Comment on above: Performed By: #### [id number] #### [facility] [address] [place] [address] Dr. Angel Li DIAGNOSIS: Comment Normal [facility] Comment on above: Result Comment: NEGA TIVE FOR INTRAEPITHELIAL LESION OR MALIGNANCY. Performed at: WB Performed By: #### [id number] #### [facility] [address] [place] [address] Dr. Angel Li HPV Aptima Negative Normal Negative [facility] Comment on above: Result Comment: This nucleic acid amplification test detects fourteen high-risk HPV types (16,18,31,33,35,39,45,51,52,56,58,59,66,68) without differentiation. Performed at: =G Performed By: #### [id number] #### [facility] [address] [place] [address] Dr. Angel Li Methodology: Comment Normal [facility] Comment on above: Result Comment: This liquid based ThinPrep(R) pap test was screened with the use of an image guided system. Performed at: WB Performed By: #### [id number] #### [facility] [address] [address] [address] Angel Li Note: Comment Normal [facility] Comment on above: Result Comment: The Pap smear is a screening test designed to aid in the detection of premalignant and malignant conditions of the uterine cervix. It is not a diagnostic procedure and should not be used as the sole means of detecting cervical cancer. Both false-positive and false-negative reports do occur. . Performed at: WB Performed By: #### [id number] #### [facility] [address] [place] [address] Dr. Angel Li Performed by: Comment Normal [facility] Comment on above: Result Comment: Shyanne Back, Board Of Directors (ASCP) Performed at: WB Performed By: #### [id number] #### [facility] [address] [place] [address] Dr. Angel Li Specimen adequacy: Comment Normal [facility] Comment on above: Result Comment: Sati sfactory for evaluation. Endocervical and/or squamous metaplastic cells (endocervical component) are present. Performed at: WB Performed By: #### [id number] #### [facility] [address] [place] [address] Dr. Angel Li VAGINITIS/VAGINOSIS DNA PROB Marcelino 03-08-2022 Gracia species Negative Normal Negative [facility] Comment on above: Performed By: #### V AGINT #### [facility] [address] [place] [address] Dr. Angel Li Gardnerella vaginalis Positive Abnormal Negative [facility] Comment on above: Performed By: #### V AGINT #### [facility] [address] [place] [address] Dr. Angel Li Trichomonas vaginalis Negative Normal Negative [facility] Comment on above: Performed By: #### V AGINT #### [facility] [address] [address] [address] Angel Li BRAIN & CERVICAL SPINE MRI D KIRSTEN OLVERAon 11-14-2021 Brain Enhancing Lesions None [facility] Brain Interval Improvement None [facility] Brain New T2 Lesions [facility] Brain Other Significant MRI Findings None. [facility] Brain Parenchymal Volume Loss None [facility] Brain T2 Thompson of Disease Moderate [facility] MRI BRAIN WO/W IVCONon 11-14 [facility] CBC W Auto Differential pane l (Bld)on 09-18-2021 Abs Immature Gran <0.03 <0.10 k/uL [facility] Basophils (Bld) [#/Vol] 0.03 10*3/uL <0.11 k/uL [facility] Basophils/100 WBC (Bld) 0.5 % [facility] Differential cell count method Nom (Bld) Auto [facility] Eosinophils (Bld) [#/Vol] 0.15 10*3/uL <0.46 k/uL [facility] Eosinophils/100 WBC (Bld) 2.4 % [facility] Erythrocyte distribution width (RBC) [Ratio] 14.2 % 11.5 - 15.0 % [facility] Hematocrit (Bld) [Volume fraction] 41.5 % 36.0 - 46.0 % [facility] Hemoglobin (Bld) [Mass/Vol] 12.9 g/dL 11.5 - 15.5 g/dL [facility] Immature Gran % 0.3 % [facility] Lymphocytes (Bld) [#/Vol] 0.60 10*3/uL Low 1.00 - 4.00 k/uL [facility] Lymphocytes/100 WBC (Bld) 9.7 % [facility] MCH (RBC) [Entitic mass] 29.3 pg 26.0 - 34.0 pg [facility] MCHC (RBC) [Mass/Vol] 31.1 g/dL 30.5 - 36.0 g/dL [facility] MCV (RBC) [Entitic vol] 94.3 fL 80.0 - 100.0 fL [facility] Monocytes (Bld) [#/Vol] 0.74 10*3/uL <0.87 k/uL [facility] Monocytes/100 WBC (Bld) 12.0 % [facility] Neutrophils (Bld) [#/Vol] 4.62 10*3/uL 1.45 - 7.50 k/uL [facility] Neutrophils/100 WBC (Bld) 75.1 % [facility] Nucleated RBC (Bld) [#/Vol] 10*3/uL <0.01 k/uL [facility] Nucleated RBC/100 WBC (Bld) [Ratio] 0.0 /100 WBC [facility] Platelet mean volume (Bld) [Entitic vol] 12.5 fL 9.0 - 12.7 fL [facility] Platelets (Bld) [#/Vol] 181 10*3/uL 150 - 400 k/uL [facility] RBC (Bld) [#/Vol] 4.40 10*6/uL 3.90 - 5.2 0 m/uL [facility] WBC (Bld) [#/Vol] 6.16 10*3/uL 3.70 - 11. 00 k/uL [facility] Comprehensive metabolic 2000 panelon 09-18-2021 Albumin [Mass/Vol] 3.8 g/dL Low 3.9 - 4.9 g/dL [facility] ALP [Catalytic activity/Vol] 114 U/L 34 - 123 U/L [facility] ALT [Catalytic activity/Vol] 16 U/L 7 - 38 U/L [facility] Anion gap [Moles/Vol] 11 mmol/L 9 - 18 mmol/L [facility] AST [Catalytic activity/Vol] 21 U/L 13 - 35 U/L [facility] Bilirubin [Mass/Vol] 0.4 mg/dL 0.2 - 1 .3 mg/dL [facility] Calcium [Mass/Vol] 9.0 mg/dL 8.5 - 10. 2 mg/dL [facility] Chloride [Moles/Vol] 102 mmol/L 97 - 10 5 mmol/L [facility] CO2 [Moles/Vol] 25 mmol/L 22 - 30 mmol/L [facility] Creatinine [Mass/Vol] 0.97 mg/dL High 0.58 - 0.96 mg/dL [facility] Estimated Glomerular Filtration Rate 70 mL/min/1.73m >=60 mL/min/1.73m [facility] Glucose [Mass/Vol] 60 mg/dL Low 74 - 99 mg/dL [facility] Potassium [Moles/Vol] 4.0 mmol/L 3.7 - 5.1 mmol/L [facility] Protein [Mass/Vol] 7.0 g/dL 6.3 - 8.0 g/dL [facility] Sodium [Moles/Vol] 138 mmol/L 136 - 144 mmol/L [facility] Urea nitrogen [Mass/Vol] 10 mg/dL 7 - 21 mg/dL [facility] LIPID PANEL BASICon 09-19-19 22 Cholesterol [Mass/Vol] 142 mg/dL <200 mg/dL [facility] Cholesterol in HDL [Mass/Vol] 39 mg/dL Low >39 mg/dL [facility] Cholesterol in LDL [Mass/Vol] 72 mg/dL <100 mg/dL [facility] Cholesterol in LDL/Cholesterol in HDL [Mass ratio] 1.85 {ratio} <2.54 [facility] Cholesterol in VLDL [Mass/Vol] 31 mg/dL High <30 mg/dL [facility] Cholesterol non HDL [Mass/Vol] 103 mg/dL <130 mg/dL [facility] Cholesterol.total/Cho lesterol in HDL [Mass ratio] 3.64 {ratio} <5.10 [facility] Fasting Time 14 hours [facility] Triglyceride [Mass/Vol] 157 mg/dL High <150 mg/dL [facility] COVID-19 SOFIAOrdered By: Mague Palencia on 09-01-2021 SARS-CoV+SARS-CoV-2 (COVID-19) Ag IA.rapid Ql (Resp) Negative Negative [facility] Comment on above: This is a duplicate Wilma SARS Antigen (ELAINA) result to be used for statistical tracking purpose only. No Panel InformationOrdered By: Tyshawn Palencia on 09-01-2021 SARS Antigen (LFIA) [facility] CBC W/AUTO DIFFon 05-07-2017 % NEUTROPHILS 69.5 % Normal [facility] ABS BASOPHILS 0.0 K/ul Normal 0.0-0.1 [facility] Basophils/100 WBC Auto (Bld) 0.8 % Normal [facility] Comment on above: Result Comment: CARMELINA MARRERO DIFFERENTIAL PERFORMED Eosinophils 0.1 10*3/uL Normal 0.1-0.4 [...] mass conc 78 mg/dL Normal 70-100 [facility] Comment on above: Result Comment: DIAG NOSTIC THRESHOLDS FOR DIABETES AND IMPAIRED FASTING GLUCOSE (IFG) FASTING PLASMA GLUCOSE NORMAL <100 mg/dL IFG 100-125 mg/dL DIABETES >/= 126 mg/dL Potassium molar conc 4.1 mmol/L Normal 3.5-5.4 [facility] Sodium 144 mmol/L Normal 134-147 Pathology [...] LDL to HDL Ratio 1.7 Normal <3.5 [facility] LDL-CHOL, CALCULATED 95 mg/dL Normal <130 [facility] [employer] [facility] Comment on above: Result Comment: LDL CHOLESTEROL REFERENCE RANGE FOR 0-19 YEARS: DESIRABLE <110 mg/dL, BORDERLINE 110-129, HIGH RISK >130 LDL CHOLESTEROL REFERENCE RANGE FOR ADULTS: DESIRABLE <100 mg/dL, BORDERLINE 130-159, HIGH RISK >160REFERENCE RANGES REVISED 10/28/15 ACCORDING TO NCEP GUIDELINES Triglyceride 107 mg/dL Normal <150 [facility] VLDL-CHOL, CALCULATED 21 mg/dL Normal <30 [facility] TSH WITH FT4 REFLEXon 2016 Thyroid stimulating hormone (TSH) 1.480 uIU/mL Normal 0.40-4.40 [facility] Comment on above: Result Comment: [employer] [address] [id number] Director: Troy Goddard M.D.IA No. [id number] [facility] Accreditation No. [id number] CARDIOPULMONARY REPORT CLDon 12-24-2016 CARDIOPULMONARY REPORT CLD [facility] ([facility]) [address] [id number] [place] [id number] Name: YAMILKA VASQUEZ Visit ID: [id number] Record #: [id number] : 1970CC: Frances Aguilera CNP Pulmonary Function [...] seen. Clinical correlation is recommended. Author: CAROL Rao/[id number] T: 12/24/2016 10:41 cc: Frances Aguilera CNP Electronically Authenticated and Edited by:Jacki Hess MD On 12/31/2016 09:16 AM EDT Normal [facility] Vital Signs Date Time Vital Sign Value Performing Clinician Facility 08-18-2024 09:18-0400 Body mass index (BMI) [Ratio] 44.96 kg/m2 Kristin Aichholz [employer] Work Phone: [facility] 08-18-2024 09:18-0400 Body temperature 98.2 [degF] Kristin Mesaz [employer] Work Phone: [facility] 08-18-2024 09:18-0400 Body weight 122.56 kg Kristin Mesaz [employer] Work Phone: [facility] 08-18-2024 09:18-0400 Diastolic blood pressure 80 mm[Hg] Kristin Mesaz [employer] Work Phone: [facility] 08-18-2024 09:18-0400 Heart rate 98 /min Kristin Mesaz [employer] Work Phone: [facility] 08-18-2024 09:18-0400 Respiratory rate 24 /min Kristin Mesaz [employer] Work Phone: [facility] 08-18-2024 09:18-0400 SaO2% (BldA) [Mass fraction] 95 % Kristin Gracia [employer] Work Phone: [facility] 08-18-2024 09:18-0400 Systolic blood pressure 110 mm[Hg] Kristin Mesaz [employer] Work Phone: [facility] 06-17-2024 09:33-0500 Body mass index (BMI) [Ratio] 47.09 kg/m2 Sherrie Boone [employer] Work Phone: [facility] 06-17-2024 09:33-0500 Body temperature 97.7 [degF] Sherrie Boone [employer] Work Phone: [facility] 06-17-2024 09:33-0500 Body weight 128.37 kg Sherrie Boone [employer] Work Phone: [facility] 06-17-2024 09:33-0500 Diastolic blood pressure 82 mm[Hg] Sherrie Boone [employer] Work Phone: [facility] 06-17-2024 09:33-0500 Heart rate 100 /min Sherrie Augustink [employer] Work Phone: [facility] 06-17-2024 09:33-0500 Respiratory rate 16 /min Sherrie Augustink [employer] Work Phone: [facility] 06-17-2024 09:33-0500 SaO2% (BldA) [Mass fraction] 97 % Sherrie Augustink [employer] Work Phone: [facility] 06-17-2024 09:33-0500 Systolic blood pressure 120 mm[Hg] Sherrie Augustink [employer] Work Phone: [facility] 05-18-2024 09:18-0500 Body height 165.1 cm Kristin Mesaz [employer] Work Phone: [facility] 05-18-2024 09:18-0500 Body mass index (BMI) [Ratio] 46.93 kg/m2 Kristinvirginia Ascencioholz [employer] Work Phone: [facility] 05-18-2024 09:18-0500 Body temperature 98.1 [degF] Kristin Harveyreyholz [employer] Work Phone: [facility] 05-18-2024 09:18-0500 Body weight 127.91 kg Kristinvirginia Ascencioholz [employer] Work Phone: [facility] 05-18-2024 09:18-0500 Diastolic blood pressure 90 mm[Hg] Kristin Sonuholz [employer] Work Phone: [facility] 05-18-2024 09:18-0500 Heart rate 81 /min Kristin Aichholz [employer] Work Phone: [facility] 05-18-2024 09:18-0500 Respiratory rate 19 /min Kristin Harveyhholz [employer] Work Phone: [facility] 05-18-2024 09:18-0500 SaO2% (BldA) [Mass fraction] 95 % Kristin Harveyreyholz [employer] Work Phone: [facility] 05-18-2024 09:18-0500 Systolic blood pressure 144 mm[Hg] Kristin Basil [employer] Work Phone: [facility] 04-27-2024 09:03-0500 Body height 165.1 cm [facility] Work Phone: [facility] 04-27-2024 09:03-0500 Body mass index (BMI) [Ratio] 46.43 kg/m2 [facility] Work Phone: [facility] 04-27-2024 09:03-0500 Body weight 126.55 kg [facility] Work Phone: [facility] 03-05-2024 10:04-0400 Body height 165.1 cm Kristin Basil [employer] Work Phone: [facility] 03-05-2024 10:04-0400 Body mass index (BMI) [Ratio] 46.49 kg/m2 Kristin Basil [employer] Work Phone: [facility] 03-05-2024 10:04-0400 Body temperature 97.59 [degF] Kristin Basil [employer] Work Phone: [facility] 03-05-2024 10:04-0400 Body weight 126.73 kg Kristin Basil [employer] Work Phone: [facility] 03-05-2024 10:04-0400 Diastolic blood pressure 82 mm[Hg] Kristin Basil [employer] Work Phone: [facility] 03-05-2024 10:04-0400 Heart rate 82 /min Kristin Bonitaz [employer] Work Phone: [facility] 03-05-2024 10:04-0400 Respiratory rate 18 /min Kristin Bonitaz [employer] Work Phone: [facility] 03-05-2024 10:04-0400 SaO2% (BldA) [Mass fraction] 97 % Kristin Basil [employer] Work Phone: [facility] 03-05-2024 10:04-0400 Systolic blood pressure 112 mm[Hg] Kristin Ascenciodae [employer] Work Phone: [facility] 02-25-2024 08:32-0400 Body height 165.1 cm Eliazar Brooks DO Work Phone: [facility] 02-25-2024 08:32-0400 Body mass index (BMI) [Ratio] 48.09 kg/m2 Eliazar Zbigniew DO Work Phone: [facility] 02-25-2024 08:32-0400 Body weight 131.09 kg Eliazar Zbigniew DO Work Phone: [facility] 02-10-2024 17:11-0400 Heart rate 82 /min Eliazar Brooks [facility] 02-10-2024 17:11-0400 SaO2% (BldA) [Mass fraction] 94 % Eliazar Brooks [facility] 02-10-2024 17:11-0400 Diastolic blood pressure 89 mm[Hg] Eliazar Brooks [facility] 02-10-2024 17:11-0400 Mean blood pressure 109 mm[Hg] Eliazar Brooks [facility] 02-10-2024 17:11-0400 Systolic blood pressure 148 mm[Hg] Eliazar Brooks [facility] 02-10-2024 17:11-0400 Respiratory rate 16 /min Eliazar Brooks [facility] 02-10-2024 17:11-0400 Body temperature 98.24 [degF] Eliazar Brooks [facility] 02-10-2024 16:06-0400 Heart rate 81 /min Eliazar Brooks [facility] 02-10-2024 16:06-0400 SaO2% (BldA) [Mass fraction] 99 % Eliazar Brooks [facility] 02-10-2024 16:06-0400 Diastolic blood pressure 81 mm[Hg] Eliazar Brooks [facility] 02-10-2024 16:06-0400 Mean blood pressure 98 mm[Hg] Eliazar Zbigniew [facility] 02-10-2024 16:06-0400 Systolic blood pressure 134 mm[Hg] Eliazar Brooks [facility] 02-10-2024 16:05-0400 Respiratory rate 16 /min Eliazar Brooks [facility] 02-10-2024 16:00-0400 Body temperature 97.52 [degF] Eliazar Brooks [facility] 02-10-2024 16:00-0400 Respiratory rate 22 /min Eliazar Brooks [facility] 02-10-2024 16:00-0400 SaO2% (BldA) [Mass fraction] 95 % Eliazar Brooks [facility] 02-10-2024 16:00-0400 Systolic blood pressure 139 mm[Hg] Eliazar Brooks [facility] 02-10-2024 15:50-0400 Mean blood pressure 106 mm[Hg] Eliazar Brooks [facility] 02-10-2024 15:50-0400 Respiratory rate 24 /min Eliazar Brooks [facility] 02-10-2024 15:45-0400 Respiratory rate 9 /min Eliazar Brooks [facility] 02-10-2024 15:37-0400 Blood Pressure Location Eliazar Brooks [facility] 02-10-2024 15:37-0400 Body temperature 97.7 [degF] Eliazar Brooks [facility] 02-10-2024 15:30-0400 Respiratory rate 18 /min Eliazar Brooks [facility] 02-10-2024 12:04-0400 Blood Pressure Location Eliazar Brooks [facility] 02-10-2024 12:04-0400 Mean blood pressure 100 mm[Hg] Eliazar Brooks [facility] 02-10-2024 12:04-0400 Heart rate 94 /min Eliazar Brooks [facility] 02-10-2024 12:03-0400 Body temperature 97.88 [degF] Eliazar Brooks [facility] 02-10-2024 12:03-0400 Blood Pressure Location Eliazar Brooks [facility] 02-03-2024 14:28-0400 Body height 165.1 cm Kristin Aichholz [employer] ATTEND[employer] Work Phone: [facility] 02-03-2024 14:28-0400 Body mass index (BMI) [Ratio] 48.09 kg/m2 Kristin Aichholz [employer] CLEANING ATTENDANT Work Phone: [facility] 02-03-2024 14:28-0400 Body temperature 98.49 [degF] Kristin Aichholz [employer] CLEAN[employer] ATTENDANT Work Phone: [facility] 02-03-2024 14:28-0400 Body weight 131.09 kg Kristin Aichholz [employer] CLEAN[employer] ATTENDANT Work Phone: [facility] 02-03-2024 14:28-0400 Diastolic blood pressure 90 mm[Hg] Kristin Aichholz [employer] CLEAN[employer] ATTENDANT Work Phone: [facility] 02-03-2024 14:28-0400 Heart rate 83 /min Kristin Aichholz [employer] CLEANING ATTENDANT Work Phone: [facility] 02-03-2024 14:28-0400 Respiratory rate 18 /min Kristin Aichholz [employer]AN[employer] ATTENDANT Work Phone: [facility] 02-03-2024 14:28-0400 SaO2% (BldA) [Mass fraction] 93 % Kristin Ascenciodae [employer] CLEANING ATTENDANT Work Phone: [facility] 02-03-2024 14:28-0400 Systolic blood pressure 128 mm[Hg] Kristin Gracia [employer] CLEANING ATTENDANT Work Phone: [facility] 01-30-2024 10:45-0400 Body height 165.1 cm Eliazar Brooks DO Work Phone: [facility] 01-30-2024 10:45-0400 Body mass index (BMI) [Ratio] 48.92 kg/m2 Eliazar Brooks DO Work Phone: [facility] 01-30-2024 10:45-0400 Body weight 133.36 kg Eliazar Brooks DO Work Phone: [facility] 07-10-2023 15:53-0500 Body height 167.6 cm Paris Paris DO Work Phone: [facility] 07-10-2023 15:53-0500 Body weight 134.26 kg Paris Paris DO Work Phone: [facility] 07-10-2023 15:53-0500 Heart rate 89 /min Paris Paris DO Work Phone: [facility] 07-10-2023 15:53-0500 SaO2% (BldA) [Mass fraction] 97 % Paris Paris DO Work Phone: [facility] 06-26-2023 11:34-0500 Body height 165.1 cm Shaikh Jonn BENITEZ Work Phone: [facility] 06-26-2023 11:34-0500 Body mass index (BMI) [Ratio] 48.09 kg/m2 Shaikh Jonn BENITEZ Work Phone: [facility] 06-26-2023 11:34-0500 Body temperature 98.6 [degF] Shaikh Jonn BENITEZ Work Phone: [facility] 06-26-2023 11:34-0500 Body weight 131.09 kg Shaikh Jonn BENITEZ Work Phone: [facility] 06-26-2023 11:34-0500 Diastolic blood pressure 80 mm[Hg] Shaikh Jonn BENITEZ Work Phone: [facility] 06-26-2023 11:34-0500 Heart rate 77 /min Shaikh Jonn BENITEZ Work Phone: [facility] 06-26-2023 11:34-0500 SaO2% (BldA) [Mass fraction] 96 % Shaikh Jonn BENITEZ Work Phone: [facility] 06-26-2023 11:34-0500 Systolic blood pressure 136 mm[Hg] Shaikh Jonn BENITEZ Work Phone: [facility] 04-18-2022 10:30-0500 Body height 173.99 cm Tyshawn Palencia Other [employer] Other 04-18-2022 10:30-0500 Body mass index (BMI) [Ratio] 46.68 kg/m2 Tyshawn Palencia Other [employer] Other 04-18-2022 10:30-0500 Body weight 141.34 kg Tyshawn Palencia Other [employer] Other 04-18-2022 10:30-0500 Diastolic blood pressure 89 mm[Hg] Tyshwan Palencia Other [employer] Other 04-18-2022 10:30-0500 Systolic blood pressure 129 mm[Hg] Tyshawn Palencia Other [employer] Other 03-22-2022 12:54-0400 Body height 172.7 cm Jessica Clarke PA-C Work Phone: [facility] 03-22-2022 12:54-0400 Body weight 131.54 kg Jessica Young PA-C Work Phone: [facility] 03-22-2022 12:54-0400 Diastolic blood pressure 76 mm[Hg] Jessica Young PA-C Work Phone: [facility] 03-22-2022 12:54-0400 Heart rate 108 /min Jessica Young PA-C Work Phone: [facility] 03-22-2022 12:54-0400 Systolic blood pressure 129 mm[Hg] Jessica Young PA-C Work Phone: [facility] 03-22-2022 09:30-0400 Body temperature 97 [degF] Infusion 10 Work Phone: [facility] 03-22-2022 09:30-0400 Diastolic blood pressure 83 mm[Hg] Infusion 10 Work Phone: [facility] 03-22-2022 09:30-0400 Heart rate 79 /min Infusion 10 Work Phone: [facility] 03-22-2022 09:30-0400 Systolic blood pressure 152 mm[Hg] Infusion 10 Work Phone: [facility] 12-13-2021 10:30-0400 Body height 173.99 cm Tyshawn Palencia Other [employer] Other 12-13-2021 10:30-0400 Body mass index (BMI) [Ratio] 45.55 kg/m2 Tyshawn Palencia Other [employer] Other 12-13-2021 10:30-0400 Body weight 137.89 kg Tyshawn Palencia Other [employer] Other 11-14-2021 08:42-0400 Body height 174 cm Jessica Young PA-C Work Phone: [facility] 11-14-2021 08:42-0400 Body weight 132 kg Jessica Young PA-C Work Phone: [facility] 11-14-2021 08:42-0400 Diastolic blood pressure 68 mm[Hg] Jessica Young PA-C Work Phone: [facility] 11-14-2021 08:42-0400 Heart rate 88 /min Jessica Young PA-C Work Phone: [facility] 11-14-2021 08:42-0400 Systolic blood pressure 112 mm[Hg] Jessica Young PA-C Work Phone: [facility] 09-18-2021 12:00-0400 Body temperature 97.9 [degF] Infusion 2 Work Phone: [facility] 09-18-2021 12:00-0400 Diastolic blood pressure 89 mm[Hg] Infusion 2 Work Phone: [facility] 09-18-2021 12:00-0400 Heart rate 93 /min Infusion 2 Work Phone: [facility] 09-18-2021 12:00-0400 Respiratory rate 16 /min Infusion 2 Work Phone: [facility] 09-18-2021 12:00-0400 Systolic blood pressure 131 mm[Hg] Infusion 2 Work Phone: [facility] 09-18-2021 08:00-0400 Body height 174 cm Infusion 2 Work Phone: [facility] 09-18-2021 08:00-0400 Body weight 117.94 kg Infusion 2 Work Phone: [facility] 09-05-2021 10:45-0400 Diastolic blood pressure 68 mm[Hg] [facility] Work Phone: [facility] 09-05-2021 10:45-0400 Heart rate 91 /min [facility] Work Phone: [facility] 09-05-2021 10:45-0400 Respiratory rate 18 /min [facility] Work Phone: [facility] 09-05-2021 10:45-0400 SaO2% (BldA) [Mass fraction] 99 % Services [employer] Work Phone: [facility] 09-05-2021 10:45-0400 Systolic blood pressure 122 mm[Hg] Services [employer] Work Phone: [facility] 09-05-2021 08:26-0400 Body height 173.99 cm Services [employer] Work Phone: [facility] 09-05-2021 08:26-0400 Body mass index (BMI) [Ratio] 43.4 kg/m2 Services [facility] [employer] Work Phone: [facility] 09-05-2021 08:26-0400 Body temperature 98.2 [degF] Services [employer] Work Phone: [facility] 09-05-2021 08:26-0400 Body weight 131.54 kg Services [employer] Phone: [facility] 08-14-2021 11:30-0400 Body height 173.99 cm Tyshawn Palencia Other [employer] Other 08-14-2021 11:30-0400 Body mass index (BMI) [Ratio] 43.45 kg/m2 Tyshawn Palencia Other [employer] Other 08-14-2021 11:30-0400 Body weight 131.54 kg Tyshawn Palencia Other [employer] Other Encounters Encounter Date Encounter Type Care Provider Facility Start: 08-23-2024 End: 08-25-2024 Clinisync Result Encounter Generic External Data Provider [facility] External [facility] Unsolicited Start: 08-23-2024 End: 08-25-2024 Clinisync Result Encounter Generic External Data Provider [facility] External Department Unsolicited Start: 08-23-2024 End: 08-23-2024 Refill Kristin Gracia [employer] ATTEND[employer] Work Phone: [facility] Comment on above: 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 (Primary Dx); Yeast dermatitis Start: 08-22-2024 End: 08-22-2024 ambulatory Tripp Gruber [facility] Work Phone: Start: 08-22-2024 End: 08-22-2024 Departed Referred Tripp Gruber MD Work Phone: [facility] Start: 08-22-2024 End: 08-23-2024 Clinisync Result Encounter Generic External Data Provider [facility] External Department Unsolicited Start: 08-22-2024 End: 08-23-2024 Clinisync Result Encounter Generic External Data Provider [facility] External Department Unsolicited Start: 08-18-2024 End: 08-18-2024 Bamboo flowsheet Kristin Gracia [employer] CLEAN[employer] ATTENDANT Work Phone: [facility] Start: 08-18-2024 End: 08-18-2024 Bamboo flowsheet Kristin Gracia [employer] ATTENDANT Work Phone: [facility] Start: 08-18-2024 End: 08-18-2024 Office outpatient visit 25 minutes Kristin Gracia [employer] ATTENDANT Work Phone: [facility] Comment on above: Generalized anxiety disorder with panic attacks (CMS/HCC) (Primary Dx); Morbid (severe) obesity due to excess calories (CMS/HCC); Major depressive disorder, recurrent, moderate (CMS/HCC); Primary insomnia Start: 08-18-2024 End: 08-18-2024 ambulatory KRISTIN AICEDUARDZ Not Available Start: 08-03-2024 End: 08-03-2024 Telephone encounter Elva Rodriguez [employer] ATTENDANT Work Phone: [facility] Start: 07-07-2024 End: 07-07-2024 Bamboo flowsheet Kristinvirginia Gracia [employer] ATTENDANT Work Phone: [facility] Start: 07-07-2024 End: 07-07-2024 Bamboo flowsheet Kristin Gracia [employer] ATTENDANT Work Phone: [facility] Start: 07-07-2024 End: 07-07-2024 ambulatory KRISTIN HARVEYReyDAE Not Available Start: 06-30-2024 End: 06-30-2024 Clinisync Result Encounter Kristin Gracia [employer] ATTENDANT Work Phone: [facility] External Department Unsolicited Start: 06-30-2024 End: 06-30-2024 Clinisync Result Encounter Kristin Gracia [employer] ATTENDANT Work Phone: [facility] External [facility] Unsolicited Start: 06-17-2024 End: 06-17-2024 Bamboo flowsheet Sherrie Boone [employer] ATTENDANT Work Phone: [facility] Start: 06-17-2024 End: 06-17-2024 Bamboo flowsheet Sherrie Boone [employer] ATTENDANT Work Phone: [facility] Start: 06-17-2024 End: 06-17-2024 Office outpatient visit 10 minutes Sherrie Boone [employer] ATTENDANT Work Phone: [facility] Comment on above: Acute non-recurrent frontal sinusitis (Primary Dx) Start: 06-17-2024 End: 06-17-2024 ambulatory SHERRIE BOONE Not Available Start: 05-18-2024 End: 05-18-2024 Bamboo flowsheet Kristin Harveyreydae [employer] CLEANING ATTENDANT Work Phone: [facility] Start: 05-18-2024 End: 05-18-2024 Bamboo flowsheet Kristin Harveyreydae [employer] CLE[employer] ATTENDANT Work Phone: [facility] Start: 05-18-2024 End: 05-18-2024 Patient encounter procedure Kristin Ascenciodae [employer] ATTENDANT Work Phone: [facility] Comment on above: [...] Orders Only Jessica Clarke PA-C Work Phone: [facility] Start: 05-04-2024 End: 05-05-2024 Telephone encounter Aria Agrawal PT [facility] Comment on above: re: PT Eval tomorrow ; Call Back Start: 04-27-2024 End: 04-27-2024 Telephone encounter Kristin Gracai [employer] ATTENDANT Work Phone: [facility] Start: 04-27-2024 End: 04-27-2024 Patient encounter procedure Yahaira IBANEZ Work Phone: [facility] Comment on above: Adhesive capsulitis of left shoulder (Primary Dx); S/P arthroscopy of left shoulder Start: 04-27-2024 End: 04-27-2024 ambulatory YAHAIRA VAZQUEZ Not Available Start: 04-26-2024 End: 04-27-2024 Refill Kristin Aichholz [employer] ATTENDANT Work Phone: [facility] Comment on above: Anxiety and depressi on (CMS/HCC) Start: 04-15-2024 End: 04-15-2024 Refill Kristin Aichholz [employer] ATTENDANT Work Phone: [facility] Comment on above: Acute cough (Primary Dx) Start: 04-14-2024 End: 04-14-2024 Refill Kristin Aichholz [employer] ATTENDANT Work Phone: [facility] Comment on above: Acute non-recurrent sinusitis of other sinus (Primary Dx) Start: 04-01-2024 End: 04-02-2024 Telephone encounter Aria Agrawal PT [facility] Comment on above: re: PT (She called n keanu w/ the progress of PT so far she is dealing w/ great pain. She said she has a fu w/ doctor in the beginning of April and she'd like to hold-off till after. I indicated her auth ending date is 04/10/24 and she said she does not want to cont till after fu.) Start: 03-25-2024 End: 03-25-2024 Bamboo flowsheet Inderjit Pelletier JUNIOR MECHANICAL ENGINEER [facility] Start: 03-25-2024 End: 03-25-2024 Bamboo flowsheet Inderjit Pelletier JUNIOR MECHANICAL ENGINEER [facility] Start: 03-25-2024 End: 03-25-2024 ambulatory Inderjit Pelletier JUNIOR MECHANICAL ENGINEER [facility] Comment on above: Left shoulder pain, unspecified chronicity (Primary Dx); S/P arthroscopy of left shoulder Start: 03-13-2024 End: 03-13-2024 Bamboo flowsheet Inderjit Pelletier JUNIOR MECHANICAL ENGINEER [facility] Start: 03-13-2024 End: 03-13-2024 Bamboo flowsheet Inderjit Pelletier JUNIOR MECHANICAL ENGINEER [facility] Start: 03-13-2024 End: 03-13-2024 ambulatory Inderjit Pelletier JUNIOR MECHANICAL ENGINEER [facility] Comment on above: Left [...] Start: 03-06-2024 End: 03-06-2024 ambulatory Inderjit Pelletier JUNIOR MECHANICAL ENGINEER [facility] Comment on above: S/P arthroscopy of l eft shoulder (Primary Dx) Start: 03-05-2024 End: 03-05-2024 Bamboo flowsheet Kristin Gracia [employer] CLEAN[employer] ATTENDANT Work Phone: [facility] Start: 03-05-2024 End: 03-05-2024 Bamboo flowsheet Kristin Gracia [employer] CLEANING ATTENDANT Work Phone: [facility] Start: 03-05-2024 End: 03-05-2024 Office outpatient visit 15 minutes Kristin Ascenciojesicalee [employer] CLEAN[employer] ATTENDANT Work Phone: [facility] Comment on above: Anxiety and depressi on (CMS/HCC) (Primary Dx); Needs flu shot; Candidiasis of skin Start: 03-05-2024 End: 03-05-2024 ambulatory KRISTIN GRACIA Not Available Start: 03-03-2024 End: 03-03-2024 Bamboo flowsheet Inderjit Pelletier JUNIOR MECHANICAL ENGINEER [facility] Start: 03-03-2024 End: 03-03-2024 Bamboo flowsheet Inderjit Pelletier JUNIOR MECHANICAL ENGINEER [facility] Start: 03-03-2024 End: 03-03-2024 ambulatory Inderjit Pelletier JUNIOR MECHANICAL ENGINEER [facility] Comment on above: S/P arthroscopy of l eft shoulder (Primary Dx) Start: 02-28-2024 End: 02-28-2024 Bamboo flowsheet Aria Agrawal PT [facility] Start: 02-28-2024 End: 02-28-2024 Bamboo flowsheet Aria Agrawal PT [facility] Start: 02-28-2024 End: 02-28-2024 ambulatory Aira Agrawal PT [facility] Comment on [...] to same day surgery center Eliazar Brooks [facility] Start: 02-10-2024 End: 02-10-2024 ambulatory Eliazar Brooks Facility[facility] Start: 02-05-2024 End: 02-05-2024 ambulatory FRANCES AGUILERA Facility:[facility] Start: 02-03-2024 End: 02-03-2024 Office outpatient visit 15 minutes Kristin Gracia [employer] ATTENDANT Work Phone: [facility] Comment on above: Diverticulitis (Prim donna Dx); Class 3 severe obesity without serious comorbidity with body mass index (BMI) of 45.0 to 49.9 in adult, unspecified obesity type ([facility]) Start: 02-03-2024 End: 02-03-2024 Bamboo flowsheet Kristin Gracia [employer] CLEANING ATTENDANT Work Phone: [facility] Start: 02-03-2024 End: 02-03-2024 Bamboo flowsheet Kristin Gracia [employer] CLEANING ATTENDANT Work Phone: [facility] Start: 02-03-2024 [...] Start: 01-29-2024 End: 01-29-2024 Orders Only Kristin Basil [employer] CLE[employer] ATTENDANT Work Phone: [facility] Comment on above: Multiple sclerosis ( CMS/HCC) (Primary Dx) Start: 01-23-2024 End: 01-23-2024 Clinisync Result Encounter Kristin Basil [employer] CLEAN[employer] ATTENDANT Work Phone: [facility] External Department Unsolicited Start: 01-23-2024 End: 01-23-2024 Clinisync Result Encounter Kristin Ascenciodae [employer] CLEANING ATTENDANT Work Phone: [facility] External Department Unsolicited Start: 01-23-2024 End: 01-23-2024 ambulatory SHERRIE BOONE Not Available Start: 01-14-2024 End: 01-17-2024 Telephone encounter Jessica Clarke PA-C Work Phone: [facility] Comment on above: Orders Start: 01-06-2024 End: 01-06-2024 ambulatory KRISTIN BONITAZ Not Available Start: 12-24-2023 End: 01-10-2024 Pre-admission assessment Eliazar Brooks [facility] Start: 12-24-2023 End: 12-24-2023 ambulatory ELIAZAR BROOKS Not Available Start: 12-19-2023 [facility] Work Phone: Infusion Start: 12-02-2023 End: 12-02-2023 ambulatory KRISTIN SONUHOLZ Not Available Start: 11-27-2023 Orders Only Jessica Almodovar Work Phone: [facility] Comment on above: Multiple sclerosis ( HCC) (Primary Dx); Vitamin D deficiency Start: 11-26-2023 Orders Only Sarthak Escobar MD, PhD Work Phone: [facility] Start: 11-13-2023 End: 11-13-2023 ambulatory YAHAIRA Sousa [place] Not Available Start: 11-05-2023 End: 11-05-2023 ambulatory YAHAIRA Sousa [place] Not Available Start: 10-10-2023 End: 10-10-2023 ambulatory KRISTIN GRACIA Not Available Start: 10-07-2023 End: 10-07-2023 ambulatory YAHAIRA Sousa [place] Not Available Start: 09-06-2023 End: 09-06-2023 ambulatory Katerin Harris PA-C Work Phone: [facility] [place] Comment on above: Left arm weakness (P rimary Dx) Start: 09-06-2023 End: 09-06-2023 Telemedicine consultation with patient Katerin Mccoy PA-C Work Phone: [facility] Start: 08-22-2023 ambulatory Jessica Saavedra A-C Work Phone: [facility] Comment on above: Spine Start: 08-22-2023 Chart abstracting None (Historical) Neurology Start: 08-21-2023 Telephone encounter Jessica mireles PA-C Work Phone: [facility] Comment on above: Patient Question Start: 08-08-2023 ambulatory ELIAZAR Aiken ty:[facility] Start: 07-15-2023 Telephone encounter Jessica mireles PA-C Work Phone: [facility] Comment on above: Orders (Order for MR I needed for Brain and Cervical) Start: 07-10-2023 End: 07-10-2023 ambulatory JESSICA CLARKE Facility:[facility] Start: 07-10-2023 End: 07-10-2023 Patient encounter procedure Paris E Paris DO Work Phone: Pain Management Comment on above: Cervical disc disord er with radiculopathy (Primary Dx); Cervical stenosis of spine; Chronic neck pain Start: 06-26-2023 ambulatory Paris E Girgi s DO Work Phone: Pain Management Comment on above: Pain Questionnaire Start: 06-26-2023 Bamboo flowsheet Shaikh Jonn BENITEZ Work Phone: [facility] Start: 06-26-2023 Bamboo flowsheet Shaikh Jonn BENITEZ Work Phone: [facility] Start: 06-26-2023 E-mail encounter dagoberto barney caregiver Paris Toledo DO [facility] Start: 06-26-2023 End: 06-26-2023 Office outpatient visit 25 minutes Shaikh Jonn BENITEZ Work Phone: [facility] Comment on above: Multiple sclerosis ( CMS/HCC) (Primary Dx); Primary hypertension (CMS/HCC); Anxiety and depression (CMS/HCC); COPD with exacerbation (CMS/HCC); Non-recurrent acute suppurative otitis media of left ear without spontaneous rupture of tympanic membrane Start: 05-22-2023 End: 05-22-2023 ambulatory SARTHAK ESCOBAR Facility:[facility] Start: 05-02-2023 End: 05-02-2023 ambulatory Jessica ROMOC Work Phone: [facility] Comment on above: Multiple sclerosis ( HCC) (Primary Dx) Start: 05-02-2023 End: 05-02-2023 Telemedicine consultation with patient Jessica Clarke PA-C Work Phone: [facility] Start: 04-22-2023 ambulatory Jessica Clarke P A-C Work Phone: [facility] Comment on above: Skull Start: 04-19-2023 ambulatory Jessica Young P A-C Work Phone: [facility] Comment on above: Skull Start: 10-17-2022 ambulatory Valdez Sousa Work Phone: [facility] Start: 10-01-2022 End: 10-01-2022 ambulatory RUBINA GRACIA Facility:[facility] Start: 10-01-2022 ambulatory RUBINA GRACIA Facil ity:[facility] Start: 09-21-2022 End: 09-21-2022 ambulatory YAHAIRA MCKEON . Facility:[facility] Start: 08-30-2022 Orders Only Jessica Almodovar Work Phone: [facility] Comment on above: Multiple sclerosis, relapsing-remitting (HCC) (Primary Dx) Start: 06-05-2022 End: 06-06-[address] DOCTOR BULL Facility:[facility] Start: 04-18-2022 End: 04-18-2022 ambulatory Tyshawn Palencia Other [facility] [employer] Other Start: 04-18-2022 Office outpatient vi sit 15 minutes Tyshawn Palencia [facility] Gastro[facility]ology Start: 03-30-2022 Telephone encounter Valdez aleman MD Work Phone: [address] [place] [address] Comment on above: Patient Update Start: 03-22-2022 End: 03-22-2022 Patient encounter procedure Jessica Clarke PA-C Work Phone: [facility] Comment on above: Multiple sclerosis, relapsing-remitting (HCC) (Primary Dx) Start: 03-22-2022 End: 03-22-2022 ambulatory Infusion [place] [id number] Work Phone: Multiple Sclerosis Comment on above: Multiple sclerosis ( HCC) (Primary Dx) Start: 03-16-2022 Orders Only Sarthak Escobar MD, PhD Work Phone: [facility] Start: 03-07-2022 End: 03-07-2022 ambulatory RUBINA KRISTIN HARVEYReyJESICALee Facility:[facility] Start: 03-06-2022 ambulatory Valdez Sousa Work Phone: [facility] [facility] Start: 02-12-2022 Telephone encounter Jessica mireles PA-C Work Phone: Neurology Comment on above: Appointment (Called pt LVM to see about setting up pt and psycology.) Start: 01-16-2022 End: 01-16-2022 ambulatory Jojo Pickard OTR/L Work Phone: [facility] Occupational Therapy Comment on above: Multiple sclerosis, relapsing-remitting (HCC) Start: 12-13-2021 End: 12-13-2021 ambulatory Tyshawn Palencia Other [employer] Other Start: 12-13-2021 Office outpatient vi sit 15 minutes Tyshawn Palencia [facility] Start: 11-15-2021 ambulatory Valdez Sousa Work Phone: Internal Medicine [facility] Start: 11-14-2021 End: 11-14-2021 Patient encounter procedure Jessica Clarke PA-C Work Phone: [facility] Comment on above: Multiple sclerosis, relapsing-remitting (HCC) (Primary Dx) Start: 11-14-2021 End: 11-14-2021 Subsequent hospital visit by physician Cara Manning (I-Stat/3t) Work Phone: Radiology Comment on above: Multiple sclerosis, relapsing-remitting (HCC) [G35] Start: 09-18-2021 End: 09-18-2021 ambulatory Xavier Monte 2 Work Phone: Multiple Sclerosis Comment on above: Multiple sclerosis ( HCC) (Primary Dx); Multiple sclerosis, relapsing-remitting (HCC) Start: 09-15-2021 End: 09-15-2021 ambulatory Jessica Clarke PA-C Work Phone: [facility] Comment on above: Multiple sclerosis, relapsing-remitting (HCC) Start: 09-15-2021 End: 09-15-2021 Telemedicine consultation with patient Jessica Clarke PA-C Work Phone: [facility] Start: 09-14-2021 End: 09-14-2021 ambulatory Tyshawn Palencia Other [employer] Other Start: 09-14-2021 Telephone encounter Tyshawn Carlisle ck [employer] Start: 09-05-2021 End: 09-05-2021 Admission to same day surgery center Services [facility] Work Phone: [facility] Start: 09-01-2021 End: 09-01-2021 Patient encounter procedure [facility] Work Phone: [facility] Start: 08-14-2021 End: 08-14-2021 ambulatory Tyshawn Palencia Other [employer] Other Start: 08-14-2021 Office outpatient ne w 45 minutes Tyshawn Palencia [facility] Start: 07-28-2020 End: 07-28-2020 Patient encounter procedure Jazmin Shaikh Work Phone: [facility] Work Phone: Start: 12-20-2016 End: 12-21-[address] [facility] Facility:[facility] Start: 11-27-2012 Patient encounter status Jessica Clarke PA-C Work Phone: [facility] Procedures Date Procedure Procedure Detail Performing Clinician Start: 08-23-2024 BLOOD CULTURE 2 Generic External Data Provider Start: 08-23-2024 BLOOD CULTURE 1 Generic External Data Provider Start: 08-22-2024 URINE CULTURE - [facility] Ge neric External Data Provider Start: 06-30-2024 MM TOMOSYNTHESIS SCR EENING BI Kristin Gracia CAMPGROUND CLEANING ATTENDANT Work Phone: Start: 06-30-2024 Mammography Kristin rivera CAMPGROUND CLEANING ATTENDANT Work Phone: Start: 04-27-2024 Arthrocentesis aspir &/inj major jt/bursa w/us Yahaira IBANEZ Work Phone: Start: 02-25-2024 Radex shoulder compl ete minimum 2 views Eliazar Brooks DO Work Phone: Start: 02-10-2024 Arthroscopy of shoulder Eliazar Brooks Start: 01-23-2024 TBH UA (CLEAN/CATCH) MICROSCOPIC IF INDICATE Kristin Gracia CAMPGROUND CLEANING ATTENDANT Work Phone: Start: 03-07-2022 Microscopic observat ion [Identifier] in Cervix by Cyto stain Shaikh Jonn BENITEZ Work Phone: Start: 11-14-2021 BRAIN & CERVICAL SPI NE MRI DISCRETE DATA [facility] Provider Start: 11-14-2021 Mri brain brain stem w/o w/contrast material Jessica Clarke PA-C Work Phone: Start: 09-18-2021 Blood count complete auto&auto difrntl wbc Jessica IBANEZ-C Work Phone: Start: 09-18-2021 Lipid panel Jessica mireles MARCELLEMelony Work Phone: Start: 09-18-2021 Lipid 1996 panel - S sofía or Plasma Jessica IBANEZ-C Work Phone: Start: 09-15-2021 Adult depression scr eening assessment Jessica IBANEZ-C Work Phone: Start: 09-05-2021 Diagnostic endoscopi c examination on colon [facility] Work Phone: Start: 09-01-2021 SARS Antigen (LFIA) Ser [facility] Work Phone: Start: 07-28-2020 Imm. administration COVID19 Zonderalfie Shaikh Work Phone: Start: 07-28-2020 SARS-CoV-2 vaccine, 0.5ml Zonderne Neel Work Phone: Start: 09-17-2012 Mammography Shaikh Ilan gimenez MD Work Phone: Ectopic (disorder) Eliazar Brooks Entire carpal canal (body structure) Eliazar Brooks Plan of Treatment Date Care Activity Detail Author Start: 09-22-2027 Screening for malign ant neoplasm of colon [facility] Start: 10-02-2026 Urine microalbumin profile [facility] Start: 09-18-2026 Lipid 1996 panel - S sofía or Plasma Lipid Screening [facility] Start: 09-18-2026 Lipid panel Lipid Screening [facility] Start: 09-18-2026 LIPID SCREEN LIPID SCREEN [facility] Start: 05-22-2026 Diabetes Screening Diabetes Screenin g [facility] Start: 11-08-2025 LIPID SCREEN LIPID SCREEN [facility] Start: 06-30-2025 Screening for malign ant neoplasm of breast Mammogram [facility] Start: 05-18-2025 Medicare Annual Well ness (AWV) Medicare Annual Wellness (AWV) [facility] Start: 03-07-2025 Screening for malign ant neoplasm of cervix [facility] Start: 09-30-2024 End: 09-30-2024 Patient encounter procedure 09/30/2024 8:40 AM EDT Office Visit [facility] [address] [place] [address] Kristin Gracia, KIRK [address] [place] [phone] [facility] Start: 09-18-2024 DIABETES SCREEN DIABETES SCREEN [facility] Start: 09-18-2024 Diabetes Screening [facility] Start: 09-07-2024 End: 09-07-2024 Patient encounter procedure 09/07/2024 8:00 AM EDT Office Visit [facility] [address] [facility] [address] [place] [address] Nasra Horta, CAMPGROUND CLEANING ATTENDANT [address], [facility] [address] [place] [phone] [facility] Start: 08-31-2024 End: 08-31-2024 Patient encounter procedure 08/31/2024 10:30 AM EDT Office Visit [facility] [address] [place] [phone] Kristin Gracia NP [address] [place] [address] [facility] Start: 08-22-2024 Urine culture [facility] Start: 08-22-2024 Bacteria identified in Urine by Culture Urine Culture [facility] Start: 08-18-2024 End: 08-18-2024 Patient encounter procedure [facility] Comment on above: Morbid (severe) obes ity due to excess calories (CMS/HCC) (Primary Dx); Generalized anxiety disorder with panic attacks (CMS/HCC); Major depressive disorder, recurrent, moderate (CMS/HCC) Start: 07-13-2024 End: 07-13-2024 Patient encounter procedure 07/13/2024 9:40 AM EST Office Visit [facility] [address] [facility] [address] [place] [address] Nasra Horta, CAMPGROUND CLEANING ATTENDANT [address], [facility] [address] [place] [phone] [facility] Start: 07-07-2024 End: 07-07-2024 Patient encounter procedure 07/07/2024 10:00 AM EST Office Visit [facility] [address] [place] [phone] Kirstin Gracia, KIRK [address] [place] [phone] Generalized anxiety disorder with panic attacks (CMS/HCC) (Primary Dx); Multiple sclerosis (CMS/HCC); Major depressive disorder, recurrent, moderate (CMS/HCC); Morbid (severe) obesity due to excess calories (CMS/HCC); Body mass index (BMI) 45.0-49.9, adult (CMS/HCC) [facility] Comment on above: Generalized anxiety disorder with panic attacks (CMS/HCC) (Primary Dx); Multiple sclerosis (CMS/HCC); Major depressive disorder, recurrent, moderate (CMS/HCC); Morbid (severe) obesity due to excess calories (CMS/HCC); Body mass index (BMI) 45.0-49.9, adult (CMS/HCC) Start: 07-01-2024 End: 07-01-2024 Patient encounter procedure 07/01/2024 10:00 AM EST Office Visit [facility] [address] [place] [phone] Kristin Gracia, KIRK [address] [place] [phone] [facility] Start: 06-25-2024 End: 06-25-2024 Patient encounter procedure 06/25/2024 8:40 AM EST Office Visit [facility] [address] [place] [phone] Kristin Gracia NP [address] [place] [phone] [facility] Start: 06-17-2024 End: 06-17-2024 Patient encounter procedure 06/17/2024 9:30 AM EST Office Visit [facility] [address] [place] [phone] Sherrie Boone NP [address] [place] [phone] Arrived [facility] Comment on above: Arrived Start: 06-08-2024 End: 06-08-2024 Patient encounter procedure 06/08/2024 9:45 AM EST Office Visit [facility] [address] [place] [phone] Yahaira Vazquez PA [address] [place] [address] [facility] Start: 05-18-2024 End: 07-17-2025 MG Breast - bilateral Screening Bilateral screening mammogram Imaging Routine Encounter for screening mammogram for malignant neoplasm of breast Expected: 05/18/2024 (Approximate), Expires: 07/17/2025 [facility] Work Phone: Comment on above: Expected: 05/18/2024 (Approximate), Expires: 07/17/2025 Start: 05-18-2024 End: 05-18-2024 Patient encounter procedure [facility] Comment on above: LORENZO (obstructive sle [...] [facility] [address] [facility] [address] [place] [address] Nasra Horta, CAMPGROUND CLEANING ATTENDANT [address], [address] [address] [facility] Start: 05-05-2024 End: 05-05-2024 Patient encounter procedure 05/05/2024 9:40 AM EST Office Visit [facility] [address] [place] [address] Kristin Gracia NP [address] [place] [address] [facility] Start: 04-30-2024 Medicare Annual Well ness (AWV) Medicare Annual Wellness (AWV) [facility] Start: 04-29-2024 End: 04-29-2024 Patient encounter procedure 04/29/2024 9:40 AM EST Office Visit [facility] [address] [facility] [address] [place] [address] Nasra Horta, CAMPGROUND CLEANING ATTENDANT [address], [address] [address] [facility] Start: 04-27-2024 End: 04-27-2024 Patient encounter procedure [facility] Start: 04-10-2024 End: 04-10-2024 ambulatory 04/10/2024 8:30 AM EST Treatment [facility] [address] [place] [address] Inderjit Pelletier, JUNIOR MECHANICAL ENGINEER [facility] Start: 04-07-2024 End: 04-07-2024 ambulatory 04/07/2024 9:00 AM EST Treatment [facility] [address] [place] [address] Aria Agrawal, PT [facility] Start: 04-02-2024 End: 04-02-2024 ambulatory 04/02/2024 8:30 AM EST Treatment [facility] [address] [place] [address] Aria Agrawal, PT [facility] Start: 03-17-2024 End: 03-17-2024 ambulatory 03/17/2024 9:00 AM EDT Treatment [facility] [address] [facility] [address] [place] [address] Aria Agrawal, PT [facility] Start: 03-13-2024 End: 03-13-2024 ambulatory [facility] Comment on above: Arrived Start: 03-10-2024 End: 03-10-2024 ambulatory 03/10/2024 9:30 AM EDT Treatment [facility] [address] [facility] [address] [place] [address] Keli Major, JUNIOR MECHANICAL ENGINEER [facility] Start: 03-06-2024 End: 03-06-2024 ambulatory 03/06/2024 8:30 AM EDT Treatment [facility] [address] [facility] [address] [place] [address] Inderjit Pelletier, JUNIOR MECHANICAL ENGINEER [facility] Start: 03-05-2024 End: 03-05-2024 [...] [facility] [address] [place] [phone] Eliazar Brooks, DO [address] [place] [address] [facility] Start: 02-25-2024 End: 02-25-2024 Patient encounter procedure 02/25/2024 8:15 AM EDT Office Visit [facility] [address] [place] [phone] Eliazar Brooks, DO [address] [place] [address] [facility] Start: 02-10-2024 End: 02-10-2024 [...] [address] [place] [phone] [facility] Start: 01-19-2024 Covid-19 Vaccine () Covid-19 Vaccine ( season) [facility] Start: 01-19-2024 Influenza vaccination Influenza Vacc ine (#1) [facility] Start: 12-10-2023 End: 12-10-2023 Patient encounter procedure 12/10/2023 10:30 AM EDT Office Visit [facility] [address] [place] [address] Jessica Clarke PA-C [address] [place] [address] [facility] Comment on above: follow up Start: 11-27-2023 End: 02-26-2024 25-hydroxyvitamin D3 [Mass/volume] in Serum or Plasma VITAMIN D 25 HYDROXY Lab Routine Vitamin D deficiency Expected: 11/27/2023, Expires: 02/26/2024 [facility] Comment on above: Expected: 11/27/2023 , Expires: 02/26/2024 Start: 11-27-2023 End: 02-26-2024 CBC W Auto Differential panel - Blood COMPLETE BLOOD COUNT AND DIFFERENTIAL Lab Routine Multiple sclerosis ([facility]) Expected: 11/27/2023, Expires: 02/26/2024 [facility] Work Phone: Comment on above: Expected: 11/27/2023 , Expires: 02/26/2024 Start: 11-27-2023 End: 02-26-2024 Comprehensive metabolic 2000 panel - Serum or Plasma COMPREHENSIVE METABOLIC PANEL Lab Routine Multiple sclerosis ([facility]) Expected: 11/27/2023, Expires: 02/26/2024 [facility] Comment on above: Expected: 11/27/2023 , Expires: 02/26/2024 Start: 11-27-2023 End: 02-26-2024 IgG [Mass/volume] in Serum or Plasma IMMUNOGLOBULIN G Lab Routine Multiple sclerosis ([facility]) Expected: 11/27/2023, Expires: 02/26/2024 [facility] Comment on above: Expected: 11/27/2023 , Expires: 02/26/2024 Start: 11-27-2023 End: 02-26-2024 IgM [Mass/volume] in Serum or Plasma IMMUNOGLOBULIN M Lab Routine Multiple sclerosis ([facility]) Expected: 11/27/2023, Expires: 02/26/2024 [facility] Comment on above: Expected: 11/27/2023 , Expires: 02/26/2024 Start: 11-27-2023 End: 11-27-2023 Patient encounter procedure 11/27/2023 12:00 PM EDT Appointment Radiology [address] [place] [address] Cervical Spine MRI Radiology Comment on above: Cervical Spine MRI Start: 11-09-2023 DIABETES SCREEN DIABETES SCREEN [facility] Start: 09-05-2023 End: 09-05-2023 Patient encounter procedure 09/05/2023 8:40 AM EDT Office Visit [facility] [address] [place] [phone] Kristin Gracia NP [address] [place] [phone] [facility] Start: 07-25-2023 End: 06-26-2024 Pulmonary function testing Pulmonary function testing Imaging Routine COPD with exacerbation ([facility]/HCC) Expected: 07/25/2023, Expires: 06/26/2024 [facility] Work Phone: Comment on above: Expected: 07/25/2023 , Expires: 06/26/2024 Start: 06-26-2023 End: 06-26-2024 XR Chest 2 Views XR chest 2 views Imaging Routine COPD with exacerbation ([facility]/HCC) Expected: 06/26/2023, Expires: 06/26/2024 [facility] Comment on above: Expected: 06/26/2023 , Expires: 06/26/2024 Start: 06-26-2023 End: 06-26-2023 Patient encounter procedure 06/26/2023 11:30 AM EST Office Visit [facility] [address] [place] [phone] Shaikh Lunsford MD [address] [place] [address] Arrived [facility] Comment on above: Arrived Start: 05-20-2023 Behavioral Health Screening Behavioral Health Screening [facility] Start: 05-20-2023 Depression Assessment Depression Ass essment [facility] Start: 01-18-2023 Covid-19 Vaccine ( season) Covid-19 Vaccine ( season) [facility] Start: 01-18-2023 Influenza vaccination [facility] Start: 09-15-2022 Adult depression screening assessment DEPRESSION SCREENING [facility] Start: 08-30-2022 End: 10-30-2022 CBC W Auto Differential panel - Blood CBC + DIFF Lab Routine Multiple sclerosis, relapsing-remitting (HCC) Expected: 08/30/2022, Expires: 10/30/2022 [facility] Work Phone: Comment on above: Expected: 08/30/2022 , Expires: 10/30/2022 Start: 08-30-2022 End: 10-30-2022 Comprehensive metabolic 2000 panel - Serum or Plasma COMP METABOLIC PANEL Lab Routine Multiple sclerosis, relapsing-remitting (HCC) Expected: 08/30/2022, Expires: 10/30/2022 [facility] Work Phone: Comment on above: Expected: 08/30/2022 , Expires: 10/30/2022 Start: 08-30-2022 End: 10-30-2022 IgG [Mass/volume] in Serum or Plasma IGG Lab Routine Multiple sclerosis, relapsing-remitting (HCC) Expected: 08/30/2022, Expires: 10/30/2022 [facility] Work Phone: Comment on above: Expected: 08/30/2022 , Expires: 10/30/2022 Start: 08-30-2022 End: 10-30-2022 IgM [Mass/volume] in Serum or Plasma IGM Lab Routine Multiple sclerosis, relapsing-remitting (HCC) Expected: 08/30/2022, Expires: 10/30/2022 [facility] Work Phone: Comment on above: Expected: 08/30/2022 , Expires: 10/30/2022 Start: 05-20-2022 DEPRESSION ASSESSMENT DEPRESSION ASS ESSMENT [facility] Start: 03-22-2022 End: 05-22-2022 CBC W Auto Differential panel - Blood CBC + DIFF Lab Routine Multiple sclerosis, relapsing-remitting (HCC) Expected: 03/22/2022, Expires: 05/22/2022 [facility] Work Phone: Comment on above: Expected: 03/22/2022 , Expires: 05/22/2022 Start: 03-22-2022 End: 05-22-2022 CD19 ABSOLUTE COUNT CD19 ABSOLUTE COUNT Lab Routine Multiple sclerosis ([facility]) Expected: 03/22/2022, Expires: 05/22/2022 [facility] Work Phone: Comment on above: Expected: 03/22/2022 , Expires: 05/22/2022 Start: 03-22-2022 End: 05-22-2022 Comprehensive metabolic 2000 panel - Serum or Plasma COMP METABOLIC PANEL Lab Routine Multiple sclerosis, relapsing-remitting ([facility]) Expected: 03/22/2022, Expires: 05/22/2022 [facility] Work Phone: Comment on above: Expected: 03/22/2022 , Expires: 05/22/2022 Start: 03-22-2022 End: 05-22-2022 IgG [Mass/volume] in Serum or Plasma IGG Lab Routine Multiple sclerosis, relapsing-remitting (HCC) Expected: 03/22/2022, Expires: 05/22/2022 [facility] Work Phone: Comment on above: Expected: 03/22/2022 , Expires: 05/22/2022 Start: 03-22-2022 End: 05-22-2022 IgM [Mass/volume] in Serum or Plasma IGM Lab Routine Multiple sclerosis, relapsing-remitting (HCC) Expected: 03/22/2022, Expires: 05/22/2022 [facility] Work Phone: Comment on above: Expected: 03/22/2022 , Expires: 05/22/2022 Start: 01-18-2022 Influenza vaccination C [facility] Start: 11-14-2021 End: 01-14-2022 JCV ANTIBODY & INDEX WITH REFLEX [facility] Work Phone: Comment on above: Expected: 11/14/2021 , Expires: 01/14/2022 Start: 09-18-2021 End: 11-18-2021 CD19 ABSOLUTE COUNT [facility] Work Phone: Comment on above: Expected: 09/18/2021 , Expires: 11/18/2021 Start: 09-16-2021 COVID-19 VACCINE (3 - Booster for Yeni series) COVID-19 VACCINE (3 - Booster for Yeni series) [facility] Start: 09-15-2021 End: 11-15-2021 CBC W Auto Differential panel - Blood CBC + DIFF Lab Routine Multiple sclerosis, relapsing-remitting (HCC) Expected: 09/15/2021, Expires: 11/15/2021 [facility] Work Phone: Comment on above: Expected: 09/15/2021 , Expires: 11/15/2021 Start: 09-15-2021 End: 11-15-2021 Comprehensive metabolic 2000 panel - Serum or Plasma COMP METABOLIC PANEL Lab Routine Multiple sclerosis, relapsing-remitting (HCC) Expected: 09/15/2021, Expires: 11/15/2021 [facility] Work Phone: Comment on above: Expected: 09/15/2021 , Expires: 11/15/2021 Start: 09-15-2021 End: 11-15-2021 IMMUNOGLOBULINS KESHAWN IMMUNOGLOBULINS KESHAWN Lab Routine Multiple sclerosis, relapsing-remitting (HCC) Expected: 09/15/2021, Expires: 11/15/2021 [facility] Work Phone: Comment on above: Expected: 09/15/2021 , Expires: 11/15/2021 Start: 09-15-2021 End: 11-15-2021 LIPID PANEL BASIC LIPID PANEL BASIC Lab Routine Multiple sclerosis, relapsing-remitting (HCC) Expected: 09/15/2021, Expires: 11/15/2021 [facility] Work Phone: Comment on above: Expected: 09/15/2021 , Expires: 11/15/2021 Start: 07-13-2021 COVID-19 VACCINE (3 - Booster for Yeni series) COVID-19 VACCINE (3 - Booster for Yeni series) [facility] Start: 05-20-2021 DEPRESSION ASSESSMENT DEPRESSION ASS ESSMENT [facility] Start: 2018 Influenza vaccination LUNG CANCER SC REENING [facility] Start: 2018 Pneumococcal Vaccine : 50+ (2 of 2 - PCV) Pneumococcal Vaccine: 50+ (2 of 2 - PCV) [facility] Start: 2018 Screening for malign ant neoplasm of lung Lung Cancer Screening [facility] Start: 2018 SHINGRIX VACCINE (1 of 2) STAFFORD GRIX VACCINE (1 of 2) [facility] Start: 09-17-2013 Screening for malign ant neoplasm of breast Mammogram [facility] Start: 2013 COLOGUARD (FIT-DNA) COLOGUARD (FIT-D NA) [facility] Start: 2013 Colonoscopy COLONOSCOPY [facility] Start: 2013 COLORECTAL CANCER SCREENING COLORECTAL CANCER SCREENING [facility] Start: [address] COLONOGRAPHY [facility] Start: 2013 FECAL OCCULT BLOOD FECAL OCCULT BLOO D [facility] Start: 2013 Screening for malign ant neoplasm of colon [facility] Start: 2013 SIGMOIDOSCOPY SIGMOIDOSCOPY [facility] Start: 2008 Mammography [facility] Start: 2008 Screening for malign ant neoplasm of breast Mammogram Screening [facility] Start: 1998 HPV TESTING HPV TESTING [facility] Start: 1998 Screening for malign ant neoplasm of cervix [facility] Start: 1989 PAP TESTING PAP TESTING [facility] Start: 1989 Screening for malign ant neoplasm of cervix [facility] Start: 1987 Hepatitis B Vaccine (1 of 3 - 19+ 3-dose series) Hepatitis B Vaccine (1 of 3 - 19+ 3-dose series) [facility] Start: 1986 Anxiety Screening Anxiety Screening [facility] Start: 1986 Depression Screening Depression Scre ening [facility] Start: 1986 HIV SCREENING HIV SCREENING [facility] Start: 1986 HIV screening HIV Screening [facility] Start: 1968 HEPATITIS B (1 of 3 - 3-dose series) HEPATITIS B (1 of 3 - 3-dose series) [facility] Start: 1968 Hepatitis B Vaccine (1 of 3 - 3-dose series) Hepatitis B Vaccine (1 of 3 - 3-dose series) [facility] Start: 1968 [facility] BLOOD CULTURE 1 Lab Routine 08/23/2024 5:46 AM EDT [facility] BLOOD CULTURE 2 BLOOD CULTURE 2 Lab Routine 08/23/2024 5:52 AM EDT [facility] End: 09-05-2024 EMG(NEURO/NI) EMG(NEURO/NI) EMG Routine Left arm weakness 1 Occurrences starting 09/06/2023 until 09/05/2024 [facility] Work Phone: Comment on above: 1 Occurrences starti ng 09/06/2023 until 09/05/2024 IMMUNOGLOBULINS KESHAWN IMMUNOGLOBUL INS KESHAWN Lab Routine Multiple sclerosis, relapsing-remitting (HCC) 09/18/2021 8:36 AM EDT [facility] Work Phone: End: 11-16-2023 ALIYA SCREENING ALIYA SCREENING Radiology Routine Encounter for screening mammogram for breast cancer 1 Occurrences starting 10/17/2022 until 11/16/2023 [facility] Work Phone: Comment on above: 1 Occurrences starti ng 10/17/2022 until 11/16/2023 End: 08-14-2024 MR Brain WO and W contrast IV MRI BRAIN WO/W IVCON Radiology Routine Multiple sclerosis (HCC) 1 Occurrences starting 07/16/2023 until 08/14/2024 [facility] Work Phone: Comment on above: 1 Occurrences starti ng 07/16/2023 until 08/14/2024 End: 10-05-2024 MR Cervical spine WO contrast MRI CERVICAL SPINE WO IVCON Radiology Routine Left arm weakness 1 Occurrences starting 09/06/2023 until 10/05/2024 [facility] Work Phone: Comment on above: 1 Occurrences starti ng 09/06/2023 until 10/05/2024 End: 10-15-2022 Mri brain brain stem w/o w/contrast material MRI BRAIN WO/W IVCON Radiology Routine Multiple sclerosis, relapsing-remitting (HCC) 1 Occurrences starting 09/15/2021 until 10/15/2022 [facility] Work Phone: Comment on above: 1 Occurrences starti ng 09/15/2021 until 10/15/2022 End: 12-14-2022 Mri brain brain stem w/o w/contrast material MRI BRAIN WO/W IVCON Radiology Routine Multiple sclerosis, relapsing-remitting (HCC) 1 Occurrences starting 11/14/2021 until 12/14/2022 [facility] Work Phone: Comment on above: 1 Occurrences starti ng 11/14/2021 until 12/14/2022 End: 09-29-2023 Mri brain brain stem w/o w/contrast material MRI BRAIN WO/W IVCON Radiology Routine Multiple sclerosis, relapsing-remitting (HCC) 1 Occurrences starting 08/30/2022 until 09/29/2023 [facility] Work Phone: Comment on above: 1 Occurrences starti ng 08/30/2022 until 09/29/2023 End: 09-29-2023 Mri spinal canal cervical w/o & w/contr matrl MRI CERVICAL SPINE WO/W IVCON Radiology Routine Multiple sclerosis, relapsing-remitting (HCC) 1 Occurrences starting 08/30/2022 until 09/29/2023 [facility] Work Phone: Comment on above: 1 Occurrences starti ng 08/30/2022 until 09/29/2023 OT PLAN OF CARE CERTIFICATION OT PLAN OF CARE CERTIFICATION Procedures Routine Multiple sclerosis, relapsing-remitting (HCC) Ordered: 01/16/2022 [facility] Work Phone: Comment on above: Ordered: 01/16/2022 Patient Education Hemorrhoids (D C) Diverticulosis (DC) Colon Polypectomy (DC) [facility] Work Phone: End: 12-15-2022 Screening mammography bi 2-view breast inc cad ALIYA SCREENING Radiology Routine Encounter for screening mammogram for breast cancer 1 Occurrences starting 11/15/2021 until 12/15/2022 [facility] Work Phone: Comment on above: 1 Occurrences starti ng 11/15/2021 until 12/15/2022 URINE CULTURE - [facility] URINE CULTU RE - [facility] Lab Routine 08/22/2024 10:45 PM EDT [facility] End: 10-05-2024 XR CERV OTHER 4V AP/LAT/FLX/EXT XR CERV OTHER 4V AP/LAT/FLX/EXT Radiology Routine Left arm weakness 1 Occurrences starting 09/06/2023 until 10/05/2024 [facility] Work Phone: Comment on above: 1 Occurrences starti ng 09/06/2023 until 10/05/2024 [facility] Immunizations Immunization Date Immunization Notes Care Provider [facility] 03-05-2024 Influenza, injectabl e, Madin Traphill Canine Kidney, preservative free, quadrivalent Kristin Basil [employer]ING ATTEND[employer] Work Phone: [facility] 05-02-2023 influenza, intraderm al, quadrivalent, preservative free, injectable Shaikh Jonn BENITEZ Work Phone: [facility] 05-02-2023 influenza virus vacc ine, unspecified formulation Sarthak Escobar MD, PhD Work Phone: [facility] 04-30-2023 influenza, seasonal, injectable Shaikh Jonn BENITEZ Work Phone: [facility] 03-07-2022 influenza, high dose seasonal, preservative-free Shaikh Jonn BENITEZ Work Phone: [facility] 03-07-2022 influenza virus vacc ine, unspecified formulation Jessica Clarke PA-C Work Phone: [facility] 05-18-2021 COVID-19 mRNA-1273 (Moderna) [facility] Work Phone: [facility] 07-28-2020 Ilia and Ilia COVID 19 Vaccine Jaleesa Lara [facility] Comment on above: Note: Patient tolera jonah well. No signs or symptoms of adverse reactions. Patient waited a minimum of 15 minutes. 04-08-2020 influenza, injectabl e, quadrivalent, preservative free Jessica Young PA-C Work Phone: [facility] 03-20-2019 influenza, injectabl e, quadrivalent, preservative free Jessica Young PA-C Work Phone: [facility] 06-05-2018 influenza, injectabl e, quadrivalent, preservative free Jessica Young PA-C Work Phone: [facility] 02-27-2017 influenza, injectabl e, quadrivalent, preservative free Jessica Young PA-C Work Phone: [facility] 10-02-2016 pneumococcal polysaccharide vaccine, 23 valent Jessica Young PA-C Work Phone: [facility] 10-02-2016 tetanus toxoid, redu maury diphtheria toxoid, and acellular pertussis vaccine, adsorbed Jessica Young PA-C Work Phone: [facility] 04-03-2016 influenza, injectabl e, quadrivalent, preservative free Jessica Young PA-C Work Phone: [facility] 03-19-2015 influenza, high dose seasonal, preservative-free Jessica Young PA-C Work Phone: [facility] 03-19-2015 influenza, injectabl e, quadrivalent, preservative free Eliazar Brooks DO Work Phone: [facility] 04-27-2014 influenza, high dose seasonal, preservative-free Jessica Young PA-C Work Phone: [facility] 04-27-2014 influenza, injectabl e, quadrivalent, preservative free Eliazar Brooks DO Work Phone: [facility] Healthcare Payers Date Payer Category Payer Self-pay [id number] 2024 Medicare [id number] 2023 Medicare (Managed Care) 1.2. [id number] 2023 Medicare [id number]. 1.13.159.2. [id number] 2022 Medicare [id number] 2020 Medicaid [facility] MEDICAID [facility] MEDICAID [id number] 2020-Present [phone] [address] [place] [address] Medicaid [id number]. [id number] 2020 Medicaid [id number]. 1.13.159.2. [id number] 1970 Unknown [id number] 2.16.840.1.338814.3.579.2. 593 1968 Unknown [id number] 2.16.840.1.407600.3.579.2. 593 1968 Unknown [id number] 2.16.840.1.162113.3.579.2. 593 1968 Unknown [id number] 2.16.840.1.808784.3.579.2. 593 1968 Unknown [id number] 2.16.840.1.458640.3.579.2. 593 1968 Unknown [id number] 2.16.840.1.456850.3.579.2. 727 1968 Unknown [id number] 2.16.840.1.821524.3.579.2. 727 1968 Unknown [id number] 2.16.840.1.509106.3.579.2. 727 1968 Unknown [id number] 2.16.840.1.352190.3.579.2. 1258 1968 Unknown [id number] 2.16.840.1.395358.3.579.2. 1258 1968 Unknown [id number] 2.16.840.1.171985.3.579.2. 1258 1968 Unknown [id number] 2.16.840.1.611373.3.579.2. 1258 1968 Unknown [id number] 2.16.840.1.768872.3.579.2. 1258 1968 Unknown [id number] 2.16.840.1.040484.3.579.2. 1258 1968 Unknown [id number] 2.16.840.1.915494.3.579.2. 1258 1968 Unknown [id number] 2.16.840.1.500117.3.579.2. 1258 1968 Unknown [id number] 2.16.840.1.205920.3.579.2. 1258 1968 Unknown [id number] 2.16.840.1.248150.3.579.2. 1258 1968 Unknown [id number] 2.16.840.1.819316.3.579.2. 1258 1968 Unknown [id number] 2.16.840.1.051028.3.579.2. 1258 1968 Unknown [id number] 2.16.840.1.594432.3.579.2. 1258 1968 Unknown [id number] 2.16.840.1.637286.3.579.2. 1258 1968 Unknown [id number] 2.16.840.1.724281.3.579.2. 1258 1968 Unknown [id number] 2.16.840.1.247462.3.579.2. 1259 1968 Unknown [id number] 2.16.840.1.000159.3.579.2. 1258 1968 Unknown [id number] 2.16.840.1.146075.3.579.2. 9 1968 Unknown [id number] 2.16.840.1.656911.3.579.2. 1258 1968 Unknown [id number] 2.16.840.1.483991.3.579.2. 1258 1968 Unknown [id number] 2.16.840.1.719539.3.579.2. 1258 1968 Unknown [id number] 2.16.840.1.385883.3.579.2. 1258 1968 Unknown [id number] 2.16.840.1.791058.3.579.2. 1258 1968 Unknown [id number] 2.16.840.1.163315.3.579.2. 1258 1968 Unknown [id number] 2.16.840.1.219667.3.579.2. 9 1959 Private Health Insurance [id number] 1959 Unknown [id number] Medicare [id number] Self-pay [id number] 2.16.840.1.581353.3.140.1. 68039.5.4 Unknown [id number] Unknown [id number] 2.16.840.1.495080.3.579.2. 531 Social History Date Type Detail Facility Tobacco smoking status Unknown if ever sm oked [facility] Work Phone: Start: 1970 Sex Assigned At Female F [facility] Start: 09-05-2021 End: 11-13-2023 Tobacco smoking status WAIS Ex-smoker (finding) [facility] Start: 12-13-1996 End: 12-13-2016 History of tobacco use Current smoker [facility] Start: 12-13-1996 End: 12-13-2016 History of tobacco use Cigarette Smoker [facility] Start: 12-06-2017 End: 06-04-2023 Cigarettes smoked current (pack per day) - Reported 1 [facility] Start: 12-06-2017 End: 11-13-2023 Tobacco use and exposure Smokeless tobacco non-user [facility] Start: 11-01-2020 End: 07-10-2023 Alcohol intake Current drinker of alcohol (finding) [facility] Start: 08-02-2020 History SDOH Alcohol Frequency 2 [facility] Start: 08-02-2020 History SDOH Alcohol Std Drinks 3 [facility] Start: 08-08-2012 History SDOH Alcohol Comment rare [facility] Start: 08-02-2020 History SDOH Social Connections Get Together 1 [facility] Start: 08-02-2020 History SDOH Physica l Activity DPW 0 [facility] Start: 08-02-2020 History SDOH Stress 5 [facility] Start: 08-02-2020 History SDOH Financial 4 [facility] Start: 08-02-2020 Education 8 [facility] Start: 08-08-2012 End: 03-22-2022 Tobacco Comment plans to try to quit at some point but not ready. [facility] Start: 09-08-2021 End: 03-22-2022 Exposure to SARS-CoV-2 (event) Not sure [facility] Start: 08-02-2020 End: 06-04-2023 Sex Assigned At [facility] Do you belong to any clubs or organizations such as catholic groups, unions, fraternal or athletic groups, or school groups? No [facility] Are you now , , , , never or living with a partner? [facility] How often to you hav e a drink containing alcohol? Monthly or less [facility] How many standard dr inks containing alcohol do you have on a typical day? 5 or 6 [facility] How often do you hav e 6 or more drinks on 1 occasion? Less than monthly [facility] How hard is it for y ou to pay for the very basics like food, housing, medical care, and heating Not very hard [facility] Start: 06-04-2023 Adult Depression Screening Assessment 5 [facility] Do you feel stress - tense, restless, nervous, or anxious, or unable to sleep at night because your mind is troubled all the time - these days [OSQ] Very much [facility] (I/We) worried wheth er (my/our) food would run out before (I/we) got money to buy more. Sometimes true [facility] Start: 08-02-2020 Gender identity Identifies as female gender (finding) [facility] Start: 08-02-2020 Sexual orientation Heterosexual (rosa curtis) [facility] Start: 06-05-2023 End: 08-18-2024 Alcohol intake [...] - these days [OSQ] Only a little [facility] (I/We) worried wheth er (my/our) food [...] use Passive smoker [facility] Tobacco [facility] Comment on above: States smokes 1 PPD Tobacco smoking status No Smokin g Status Entered [facility] Start: 08-24-2024 Sex Female (finding) [facility] Procedure Code Equipment Code Equipment Origin al Text Equipment Identifier Dates SHOULDER ARTHROS COPY W/ POSSIBLE REPAIR Eliazar Brooks DO 02/10/24 Non Biological Shoulder L [id number] FDA Start: 02-10-2024 Goals Date Patient Goal Desired Activity /State Clinical Notes 08-14-2021 to 08-18-2024 Kristin Gracia NP - 08/18/2024 9:32 AM EDTERESITA MCBRIDE - 08/18/2024 9:20 AM Jarek Gracia NP [...] Date Abnormal CBC 07/30/2023 Anxiety and depression ([facility]/HCC) Carpal tunnel syndrome 2002 Chronic diarrhea Chronic shoulder pain 05/01/2023 Class 3 severe obesity without serious comorbidity with body mass index (BMI) of 45.0 to 49.9 in adult ([facility]) 04/30/2023 Constipation Depression ([facility]) Hot flashes 07/30/2023 Hyperlipidemia, acquired (CMS/HCC) 07/30/2023 Hypertension (CMS/HCC) Knee pain, left anterior Major depression (CMS/HCC) Morbid obesity with BMI of 40.0-44.9, adult ([facility]) Multiple sclerosis ([facility]) Night sweats 07/30/2023 LORENZO (obstructive sleep apnea) 07/30/2023 Pain of left middle finger Primary insomnia Rash Rectal burning Right knee pain, unspecified chronicity Sinusitis Stroke (CMS/HCC) 07/30/2023 Urinary incontinence in female Vaginal discharge Vitamin D deficiency Past Surgical History: Procedure Laterality Date CARPAL TUNNEL RELEASE Right 2004 ECTOPIC SURGERY HYSTERECTOMY 1991 SHOULDER SURGERY Left 02/10/2024 Arthroscopy, RCR @ [facility] w/ MTP TUBAL LIGATION 1990 family [...] and sugary drinks. documented in this encounter [facility] 08-18-2024 Instructions Kristin Gracia NP - 08/18/2024 9:20 AM EDT Cont escitalopram 10mg daily, as well as the aripriazole 10mg daily Increase the buspirone from 5mg , to 7.5mg and you can take this every 8 hour NEEDED for anxiety We will add the mirtazipine for sleep I will refer you to [facility] in [place], they should call you documented in this encounter [facility] 08-03-2024 Telephone encounter Note Patient needs to reschedule appointment she missed today. She is [facility] patient and was scheduled with Nasra. Nasra follow up visits are 30 minutes and new patients 40 minutes. This would be follow up visit. [facility] Work Phone: 08-03-2024 Miscellaneous Notes Patient needs to reschedule appointment she missed today. She is [facility] patient and was scheduled with Nasra. Nasra follow up visits are 30 minutes and new patients 40 minutes. This would be follow up visit. documented in this encounter [facility] 06-17-2024 History of Presen t [...] 10 MG tablet documented in this encounter [facility] 06-17-2024 Instructions Sherrie Booen NP - 06/17/2024 9:30 AM EST Continue [...] NEAREST EMERGENCY DEPARTMENT. documented in this encounter [facility] 05-18-2024 History of Presen t illness Narrative [...] Date Abnormal CBC 07/30/2023 Anxiety and depression ([facility]) Carpal tunnel syndrome 2002 Chronic diarrhea Chronic shoulder pain 05/01/2023 Class 3 severe obesity without serious comorbidity with body mass index (BMI) of 45.0 to 49.9 in adult ([facility]) 04/30/2023 Constipation Depression ([facility]) Hot flashes 07/30/2023 Hyperlipidemia, acquired ([facility]) 07/30/2023 Hypertension ([facility]) Knee pain, left anterior Major depression ([facility]) Morbid obesity with BMI of 40.0-44.9, adult ([facility]) Multiple sclerosis ([facility]) Night sweats 07/30/2023 LORENZO (obstructive sleep apnea) 07/30/2023 Pain of left middle finger Primary insomnia Rash Rectal burning Right knee pain, unspecified chronicity Sinusitis Stroke ([facility]) 07/30/2023 Urinary incontinence in female Vaginal discharge Vitamin D deficiency Past Surgical History: Procedure Laterality Date CARPAL TUNNEL RELEASE Right 2005 ECTOPIC SURGERY HYSTERECTOMY 1991 SHOULDER SURGERY Left 02/10/2024 Arthroscopy, RCR @ [facility] w/ MTP TUBAL LIGATION 1990 family history [...] (BMI) of 45.0 to 49.9 in adult (CMS/[facility]) Discussed with patient their BMI (actual, [...] neurology and treatment documented in this encounter [facility] 05-18-2024 Instructions Kristin Gracia NP - 05/18/2024 9:20 AM EST Keep escitalopram at 10mg, add ariprazole 5mg daily, add buspar 5mg twice a day for anxiety Follow up appt in 4 weeks Need mammogram-I will fax order to [facility] [place] [facility] documented in this encounter [facility] 05-04-2024 Telephone encounter Note Per Aria Agrawal, PT, she advises to notify Yamilka and inform due to ongoing neck pain we'd be able to cx Eval that is scheduled tomorrow. Though note w/ the date range post shoulder we'll keep referral open and to contact if neck pain may reside and willing to partake PT for shoulder. She noted the recommendation. [facility] 05-04-2024 Miscellaneous Notes Per Aria [...] notify if requested. documented in this encounter [facility] 05-04-2024 Telephone encounter Note She called noting she has been having severe neck pain which results in 3 bulging discs in her neck; she has an appt w/ Oren Chinchilla 08/11/24. Due to severity of pain she feels PT addressing her shoulder would be useless beginning tomorrow. She cx; I noted I would inform PT and notify if requested. [facility] 04-27-2024 History of Presen t [...] to verify the correct patient, procedure, equipment, production support developer and site/side marked as required. Patient was [...] for breakthrough discomfort. documented in this encounter [facility] 04-27-2024 Instructions MARCELLE Perea - [...] for breakthrough discomfort. documented in this encounter [facility] 04-27-2024 Telephone encounter Note Please call to schedule pt a fu appt in the next month [place] [facility] 04-27-2024 Miscellaneous Notes Please call to schedule pt a fu appt in the next month [place] documented in this encounter [facility] 03-09-2024 Telephone encounter Note Patient [...] ass she's doing it and hung up. [facility] 03-09-2024 Miscellaneous Notes Patient stated [...] and hung up. documented in this encounter [facility] 03-05-2024 History of Presen t [...] hours as needed for shoulder surgical pain., [employer] #72, 167.7, cm, 02/05/24 11:09:00 EDT, [...] (BMI) of 45.0 to 49.9 in adult ([facility]) 04/30/2023 Constipation Depression ([facility]) Hot flashes 07/30/2023 Hyperlipidemia, acquired ([facility]) 07/30/2023 Hypertension ([facility]) Knee pain, left anterior Major depression ([facility]) Morbid obesity with BMI of 40.0-44.9, adult ([facility]) Multiple sclerosis ([facility]) Night sweats 07/30/2023 LORENZO (obstructive sleep apnea) 07/30/2023 Pain of left middle finger Primary insomnia Rash Rectal burning Right knee pain, unspecified chronicity Sinusitis Stroke ([facility]) 07/30/2023 Urinary incontinence in female Vaginal discharge Vitamin D deficiency Past Surgical History: Procedure Laterality Date CARPAL TUNNEL RELEASE Right 2004 ECTOPIC SURGERY HYSTERECTOMY 1990 SHOULDER SURGERY Left 02/10/2024 Arthroscopy, RCR @ [facility] w/ MTP TUBAL LIGATION 1990 family [...] Relevant Orders Flu vaccine, MDCK, quadrivalent, PF ([id number]) (Flucelvax single dose syringe) Candidiasis of skin D/t her arm being in a sling, she is requesting we use nystatin powder as cream and ointment is not something she can properly use at this time Relevant Medications nystatin (Mycostatin) [id number] UNIT/GM powder documented in this encounter [facility] 02-25-2024 History of Presen t [...] of the findings were discussed at length. [place] removed. Pain controlled. Emotional with passing of spouse. Ice 2-3 three times a day for the next couple weeks. Sling for 2 more weeks. PT was sent [facility]'s Nitish large RC repair protocol. F/U will be in 2 months, prn if doing well. All questions answered. documented in this encounter [facility] 02-14-2024 Telephone encounter Note MTP- PO Lt shoulder scope prob RCR [facility] 02/10/24 Patient called requesting a home health assistance, she states she has noone to help her I spoke with Naomi- with her type of surgery she will not qualify for any assistance. At this time we cannot order a home health assistance for her- Can you please call patient and inform her. [facility] 02-14-2024 Miscellaneous Notes MTP- PO Lt shoulder scope prob RCR [facility] 02/10/24 Patient called requesting a home health assistance, she states she has noone to help her I spoke with Naomi- with her type of surgery she will not qualify for any assistance. At this time we cannot order a home health assistance for her- Can you please call patient and inform her. documented in this encounter [facility] 02-13-2024 Telephone encounter Note Was wanting to know if she could stop taking the percocet, pain isn't that bad and she was wanting to take her trazodone. [facility] 02-13-2024 Miscellaneous Notes Was wanting to know if she could stop taking the percocet, pain isn't that bad and she was wanting to take her trazodone. documented in this encounter [facility] 02-10-2024 Hospital Discharg e instructions Patient Education 02/10/2024 15:39:49 Shoulder Cryocuff Patient Instructions - FT (CUSTOM) 02/10/2024 15:39:45 Post Op Patient Instructions - FT (CUSTOM) 02/06/2024 18:01:14 Brooks - After Your Shoulder Arthroscopy (Revised 06/17/14) (CUSTOM) [place], [place] [facility] AFTER YOUR SHOULDER ARTHROSCOPY [...] your appointment. Eliazar Brooks, DO [facility] [address] [place] [id number] Reviewed: 15 Follow Up Care 12/24/2023 11:37:06 With:YUE Santamaria Address: [address] [place] [phone]- Business (1) When:02/25/2024 14:30:00 Comments:Keep scheduled appointmentCall for any problems. [facility] 02-10-2024 Note Progress Note-Roxane mota Patient: YAMILKA VASQUEZ Age: 53 years Sex: Female : 1970 Associated Diagnoses: None Author: Mynor Enriquez MD Postoperative Information Postoperative disposition: Postoperative disposition: To PACU. Optimetrix number: Optimetrix number [id number]. Anesthetic utilized: General. Regional: Interscalene Block. Health [...] when meets criteria ( To home ). [facility] Comment on above: Result Comment: Elec tronically Signed By: Mynor Enriquez MD\.br\Date and Time Signed: 02/10/24 16:19 EDT 02-10-2024 Note Patient Education - Text [place], [place] [facility] AFTER YOUR SHOULDER ARTHROSCOPY [...] your appointment. Eliazar Brooks, DO [facility] [address] [place], [place] [id number] Reviewed: 06-03 [facility] 02-10-2024 Evaluation + Plan note Extrac jonah from: Title:ANES Post-operative Note---General Author: Mynor Enriquez MD Date:02/10/24 Plan Transfer/Discharge: Transfer/Discharge Discharge when meets criteria ( To home ). Extracted from: Title:ANES Pre-operative Note 2022 Author:Mynor Young Date:02/10/24 Plan [place] [employer] (ASA) physical status classification: Class III. Anesthetic Preoperative Plan: Anesthesia General, and LMA. Regional Interscalene block. [facility] 09-23-2024 NoteProgress Note-Physician Patient: YAMILKA VASQUEZ Age: [...] hours as needed for shoulder surgical pain., [employer] #[id number], 167.7, cm, 02/05/24 11:09:00 EDT, [...] mL/hr PRN: (12) acetaminophen-oxyC (more content not included)...[facility] Comment on above:Result Comment: Electronically Signed By: Mina BENITEZ, Mynor Markham\.br\Date and Time Signed: 02/10/24 13:21 [id number] History of Present illness Narrative* Kristin Gracia [...] Oral, 2 times daily, Take with food Vwzyqlf-Evzjmfsslvn-Oarbcvfdqj (Breztri Aerosphere) 160-9-4.8 MCG/ACT aerosol 2 puffs, [...] Date Abnormal CBC 07/30/2023 Anxiety and depression ([facility]) Carpal tunnel syndrome 2002 Chronic diarrhea Chronic shoulder pain 05/01/2023 Class 3 severe obesity without serious comorbidity with body mass index (BMI) of 45.0 to 49.9 in adult ([facility]) 04/30/2023 Constipation Depression ([facility]) Hot flashes 07/30/2023 Hyperlipidemia, acquired ([facility]) 07/30/2023 Hypertension ([facility]) Knee pain, left anterior Major depression ([facility]) Morbid obesity with BMI of 40.0-44.9, adult ([facility]) Multiple sclerosis ([facility]) Night sweats 07/30/2023 LORENZO (obstructive sleep [...] (BMI) of 45.0 to 49.9 in adult ([facility]) Diverticulitis - Primary Fluids, atb, fu if not better If any fever, chills or worsening in symptoms go to ER Relevant Medications amoxicillin-clavulanate (Augmentin) 875-125 MG tablet documented in this encounterCrossroads Regional Medical [id number] History of Present illness Narrative* Renuka Bui [...] Date Abnormal CBC 07/30/2023 Anxiety and depression ([facility]) Carpal tunnel syndrome 2002 Chronic diarrhea Chronic shoulder pain 05/01/2023 Class 3 severe obesity without serious comorbidity with body mass index (BMI) of 45.0 to 49.9 in adult ([facility]) 04/30/2023 Constipation Depression ([facility]) Hot flashes 07/30/2023 Hyperlipidemia, acquired ([facility]) 07/30/2023 Hypertension ([facility]) Knee pain, left anterior Major depression ([facility]) Morbid obesity with BMI of 40.0-44.9, adult ([facility]) Multiple sclerosis ([facility]) Night sweats 07/30/2023 LORENZO (obstructive sleep apnea) 07/30/2023 Pain of left middle finger Primary insomnia Rash Rectal burning Right knee pain, unspecified chronicity Sinusitis Stroke ([facility]) 07/30/2023 Urinary incontinence [...] 2 puffs, Inhalation, Every 6 hours PRN Lobdsyn-Xgwbiexyhgv-Tixepiqmpm (Breztri Aerosphere) 160-9-4.8 MCG/ACT aerosol 2 puffs, [...] shoulder. Eliazar Brooks D.O. documented in this encounterCrossroads Regional Medical [id number] Telephone encounter Note* Telephone Encounter - Michelle Haines - 01/17/2024 12:20 PM EDT Called patient back to let her know that Jessica's preference is for the patient to remain at [facility] ifshe is to order the medication. Patient said she would establish care with local neurologist. [facility]08-30-2024 Miscellaneous Notes* Telephone Encounter - Michelle [...] patient: Self Return call phone number : [phone] Reason for call : Other : Brief description of concern :Please fax infusion orders to [phone] [facility]. documented in this encounterGeorgetown Behavioral Hospital08-27-2024 Telephone encounter Note * Telephone Encounter - Miri Soni - 01/14/2024 2:09 PM EDT Kriss Call Name of caller : Yamilka Vasquez Relationship to patient: Self Return call phone number : [phone] Reason for call : Other : Brief description of concern :Please fax infusion orders to [phone] [facility]. [facility] Work Phone: 1(658) 963-894208-01-2024 Telephone encounter Note* Telephone Encounter - She [...] to call if she changes her mind. [facility]08-01-2024 Miscellaneous Notes* Telephone Encounter - She [...] she changes her mind. documented in this encounterGeorgetown Behavioral Hospital04-19-2024 NoteHNO ID: [id number] Author: KATERIN MCCOY PA-C Service: ? Author Type: Physician Product Operations Associate Type: Progress Notes Filed: 09/06/2023 10:11 Note Text: SPINE SURGERY OUTPATIENT CONSULT This is a virtual visit using Torrentialom Video Visit. It required patient-provider interaction for the medical decision making as documented below. I have communicated my name and active licensure. The patient's identity and physical location were verified at the time of this visit. Either the patient or their legal medical service representative has been informed of the risks and benefits of -- and alternatives to -- treatment through a remote evaluation and consents to proceed with the evaluation remotely. SERVICE DATE: 09/06/2023 PCP: Valdez Acosta MD REFERRING PROVIDER: Jessica Clarke [phone] [facility] [id number] Consult requested for an opinion regarding the [...] in the past as well. Works with [employer] for her MS. Saw an outside orthopedic [...] Function Percentile 7 1 (more content not included)...[facility]04-19-2024 History of Present illness Narrative* Katerin Mccoy PA-C - 09/06/2023 9:41 AM EDT SPINE SURGERY OUTPATIENT CONSULT This is a virtual visit using [employer] Zoom Video Visit. It required patient- provider interaction for the medical decision making as documented below. I have communicated my name and active licensure. The patient's identity and physical location wereverified at the time of this visit. Either the patient or their legal medical service representative has been informed of the risks and benefits of -- and alternatives to -- treatment through a remote evaluation andconsents to proceed with the evaluation remotely. SERVICE DATE: 09/06/2023 PCP: Valdez Acosta MD REFERRING PROVIDER: Jessica Clarke [phone] [facility] [address] Consult requested for an opinion regarding the [...] in the past as well. Works with [employer] for her MS. Saw an outside orthopedic [...] DATA REVIEW [facility] records independently reviewed ASSESSMENT/PLAN (R29.158) Left arm weakness (primary encounter diagnosis) Virtual [...] TIME: 9:41 AM PAGER: documented in this encounterGeorgetown Behavioral Hospital04-09-2024 NoteHNO ID: [id number] Author: ANISHA SANCHEZ PA-C Service: ? Author Type: Physician Product Operations Associate Type: Progress Notes Filed: 08/27/2023 11:37 Note [...] benefit from ongoing conservative management. BMI 47.78 [facility]04-09-2024 History of Present illness Narrative* Anisha [...] Vasquez Are you being referred by a [place] for Spine Health Provider or Pain Management Provider at [facility]? No If answer is YES please [...] the facility where the MRI/CT/myelogram was completed: [facility] Address: [address] [place] [address] MRI/CT/myelogram viewable in [facility]: Yes If not, please provide [phone] to fax in imaging reports for review. [...] where the surgery was completed: Additional Comments [phone] (Home Phone) documented in this encounterGeorgetown Behavioral Hospital04-04-2024 NoteHNO ID: [id number] Author: ?, ?, ? Service: ? Author Type: ? Type: Progress Notes Filed: 08/27/2023 11:37 Note Text: Patient name: Yamilka Vasquez Are you being referred by a [facility] for Spine Health Provider or Pain Management Provider at [facility]? No If answer is YES please [...] facility where the MRI/CT/myelogram was completed: [facility] Address: [address] [place] [address] MRI/CT/myelogram viewable in [facility]: Yes If not, please provide [phone] to fax in imaging reports for review. [...] where the surgery was completed: Additional Comments [phone] (Home Phone)[facility]04-03-2024 Miscellaneous Notes* Telephone Encounter - Renuka Ellison - 08/21/2023 4:17 PM EDT Kriss Call Name of caller : Yamilka Vasquez Relationship to patient: Self Return call phone number : [phone] Reason for call : Other : Brief [...] call to discuss further. documented in this encounterGeorgetown Behavioral Hospital02-28-2024 Miscellaneous Notes* Telephone Encounter - Elizabeth Victoria RN - 07/17/2023 9:04 AM EST Called patient, no answer. Message left indicating TappnGo message would be sent with reason for [...] since c-spine MRI was completed locally outside [facility] in April. Orders already placed * Telephone Encounter - Anjelica Alba - 07/15/2023 3:18 PM EST Kriss Call Name of caller : Steffanie Relationship to patient: Caregiver Return call phone number : appointments Reason for call : Order for MRI needed for Brain and Cervical documented in this encounterGeorgetown Behavioral Hospital02-21-2024 History of Present illness Narrative* Paris Toledo DO - 07/10/2023 6:00 PM EST [facility] Initial Evaluation July 10, 2023 This appointment was requested by Jessica Clarke PA-C, for my medical opinion regarding the evaluation and management of the patient's Yamilka Vasquez problems, and my final recommendations will be communicated to the requesting health care provider by way of the shared medical record for internal providers or letter via the [employer] for external providers. SUBJECTIVE: Yamilka Vasquez a 53 year old presents to [facility] Department, accompanied by self [...] PT several years ago (+) relief [place] Alcohol Abuse - No Drug Abuse - [...] No history of dysuria, frequency or incontinence DRIVER EXAMINER: Negative for abnormal vaginal bleeding, abnormal vaginal [...] supervised home exercise program (HEP): No 5. Knock Up Assembler: No Passive conservative therapy lasting 6 weeks [...] which included preparing to see the patient, aaun-io-slod patient care, completing clinical documentation, performing a medically appropriate examination, counseling and educating the patient/family/caregiver, ordering medications, tests, or p rocedures, and communicating with other HCPs (not separately reported). Paris Toledo DO July 10, 2023 documented in this encounterGeorgetown Behavioral Hospital02-21-2024 NoteHNO ID: [id number] Author: PARIS TOLEDO DO Service: ? Author Type: Physician Type: Progress Notes Filed: 07/12/2023 11:26 Note Text: [facility] Initial Evaluation July 10, 2023 This appointment was requested by Jessica Clarke PA-C, for my medical opinion regarding the evaluation and management of the patient's Yamilka Vasquez problems, and my final recommendations will be communicated to the requesting health care provider by way of the shared medical record for internal providers or letter via the [employer] for external providers. SUBJECTIVE: Yamilka Vasquez a 53 year old presents to [facility], accompanied by self [...] PT several years ago (+) relief [place] Alcohol Abuse - No Drug Abuse - [...] No history of dysuria, frequency or incontinence DRIVER EXAMINER: Negative for abnormal vaginal bleeding, abnormal vaginal discharge MUSCULOSKELETAL: Negative for joint pain or swelling, back pain or muscle pain. NEUROLOGIC:Negative for focal numbness or weakness, headaches and dizziness or syncope. SKIN:Negative for lesions, rash, and itching. PSYCHIATRIC: Negative for sleep disturbance, mood disorder and recent psychosocial stressors. LIN[place]OD (more content not included)...[facility]02-07-2024 History of Present illness Narrative* Shaikh [...] 12:24 PM ESTAssociated Problem(s): COPD with exacerbation ([facility]) Patient reports cough, SOB, wheezing, chest congestion, [...] No neurological symptoms. Stable. COPD with exacerbation ([facility]) Patient reports cough, SOB, wheezing, chest congestion, [...] 8 weeks (around 08/21/2023). documented in this encounterCrossroads Regional Medical CenterSslliejtkd04-68-8522 NoteHNO ID: [id number] Author: She Brand RN Service: ? Author [...] ; pt states she had her tubes tied.[facility]12-14-2023 History of Present illness Narrative* Jessica Clarke PA-C - 05/02/2023 7:30 AM EST Images from the original note were not included. [facility] MULTIPLE SCLEROSIS FOLLOWUP/ESTABLISHED PATIENT VIRTUAL [...] modifying therapy INTERVAL HISTORY: Usual treating team: Macre/Vince I have communicated my name and active licensure. The patient's identity and physical location wereverified at the time of this visit. Either the patient or their legal medical service representative has been informed of the risks [...] Flowsheet Row Office Visit from 03/22/[address] [facility] Office Visit from 11/14/2021 in [facility] from 09/15/[address] [facility] Upper Extremity Domain T Score 32.58 -- [...] Flowsheet Row Office Visit from 03/22/[address] [facility] Office Visit from 11/14/2021 in [facility] from 09/15/[address] [facility] Sleep Domain T Score 61.04 -- 64 [...] which included preparing to see the patient, nhtq-ut-vkwo patient care, completing clinical documentation, obtaining and/or reviewing separately obtained history, counseling and educating the patient/family/caregiver, ordering medications, manuel ts, or procedures, communicating with other HCPs (not separately reported), and communicating results to the patient/family/caregiver. The patient was discussed with Dr. Escobar prior to appointment. Jessica Clarke PA-C documented in this encounterGeorgetown Behavioral Hospital12-14-2023 NoteHNO ID: [id number] Author: Jesscia Clarke PA-C Service: ? Author Type: Physician Product Operations Associate Type: Progress Notes Filed: 05/02/2023 5:39 PM Note Text: [facility] MULTIPLE SCLEROSIS FOLLOWUP/ESTABLISHED PATIENT VIRTUAL [...] visit. Either the patient or their legal medical service representative has been informed of the risks [...] Flowsheet Row Office Visit from 03/22/[address] [facility] Office Visit from 11/14/2021 in [facility] from 09/15/[address] [facility] Upper Extremity Domain T Score 32.58 -- 34 Lower Extremity Domain T Score 36.57 -- 37 Cognitive Function Domain T Score 38.32 39 41 Positive Affect Well Being T Score -- -- -- Ability To Participate In Social Roles T Score 29.36 39 43 Satisfaction With Social Roles T Score 40.46 -- 36 Neuro-QoL Symptoms (higher=worse symptoms) Flowsheet [place] Office Visit from 03/22/[address] [facility] Office Visit from 11/14/2021 in [facility] from 09/15/[address] [facility] Sleep Domain T Score 61.04 -- 64 [...] spent a total of (more content not included)...[facility] 04-18-2022 Evaluation note* Encounter Date Diagnosis Assessment Notes Treatment Notes Treatment Clinical Notes Mar, Change in bowel function (ICD-10 - R19.4) CONTINUE METAMUCIL DIRECTED RTO 1 YR [employer] Other 11-11-2022 Miscellaneous Notes* Telephone Encounter - Lily Monique - 03/30/2022 2:06 PM EST Patient is calling today and would like to inform that she has a new PCP. Would like to ask that Dr Acosta be removed. She now sees a Dr Kristin Arteaga in [place]. Any questions please call patient at [phone] documented in this encounterGeorgetown Behavioral Hospital11-03-2022 History of Present illness Narrative* Jesscia Clarke PA-C - 03/22/2022 12:40 PM EDT Images from the original note were not included. [facility] FOR MULTIPLE SCLEROSIS FOLLOWUP/ESTABLISHED PATIENT VISIT PRINCIPAL [...] ago and hands locked up when at [employer] (Mar 03) Trying to go for walks (uses cane) Has some new friends, which has been helpful Still gets frustrated with limitations SUBJECTIVE & REVIEW OF SYSTEMS: Neuro-QoL Functions (higher=better functioning) [facility] Office Visit from 03/22/[address] [facility] Office Visit from 11/14/2021 in [facility] from 09/15/[address] [facility] Upper Extremity Domain T Score 32.58 -- 34 Lower Extremity Domain T Score 36.57 -- 37 Cognitive Function Domain T Score 38.32 39 41 Positive Affect Well Being T Score -- -- -- Ability To Participate In Social Roles T Score 29.36 39 43 Satisfaction With Social Roles T Score 40.46 -- 36 Neuro-QoL Symptoms (higher=worse symptoms) Flowsheet [facility] Office Visit from 03/22/[address] [facility] Office Visit from 11/14/2021 in [facility] from 09/15/[address] [facility] Sleep Domain T Score 61.04 -- 64 Fatigue Domain T Score 58.38 -- 65 Anxiety Domain T Score 58.73 -- 61 Depression Domain T Score 60.06 58 60 Stigma Domain T Score 58.45 -- 57 Emotional Behavior Dyscontrol T Score -- -- -- *NeuroQoL is a multi-domain patient-reported quality of life questionnaire. PHQ-9 Spectrum [employer] from 09/15/[address] [facility] Office Visit from 11/01/2020 in [facility] PHQ-9 Score 11 16 *PHQ-9 is a questionnaire for depressive symptoms, with scores 0-4 indicating none, 5-9 mild, 10-14moderate, 15-19 moderately severe, and 20-27 severe symptoms. PROMIS-10 Flocations [facility] OT/PT/Speech Visit from 01/16/2022 in [facility] Occupational Therapy [facility] from 09/15/[address] [facility] Global Physical Health T Score 32.4 32.4 [...] 5 Biceps 5 5 Triceps 5 5 Mandolin Repairer 5 5 Dorsal interossei 5 5 Lower [...] and Stretching Follow-up: In 6 months at [facility] I spent a total of 30 minutes on the date of the service which included preparing to see the patient, hjgx-gz-umgr patient care, completing clinical documentation, obtaining and/or reviewing separately obtained history, performing a medically appropriate examination, counseling and educating the pat ient/family/caregiver, ordering medications, tests, or procedures, and communicating results to thepatient/family/caregiver. Jessica Clarke PA-C The chart was reviewed for possible participation in the following studies:None documented in this encounterGeorgetown Behavioral Hospital10-18-2022 History of Present illness Narrative* Lizbeth [...] Care Gap or Scheduling/Wellness visits Payer: Payor: [facility] MEDICAID / Plan: [facility] COMMUNITY PLAN MEDICAID OF [place] / Product [...] 06, 2022 4:06 PM documented in this encounterGeorgetown Behavioral Hospital09-26-2022 Miscellaneous Notes* Telephone Encounter - Jaycee Haley - 02/12/2022 9:08 AM EDT Called pt LVM to see about setting up pt and psycology. 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; 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, [...] flexion 5/5 5/5 Wrist extension 5/5 5/5 Mandolin Repairer strength (Myriam position 2) 70 lbs 53 [...] object from floor: 4 = able to 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 X Agree Disagree 2. In a [...] 8 units: 113-127 mins Physical Performance Test (13717) Skilled Intervention: Neurologically-based functional capacity evaluation specific to the diagnosisof Multiple Sclerosis. Proper administration and selection of physical performance test based on clinical presentation, deficits, and needs. Jojo Pickard OTR/L documented in this encounterGeorgetown Behavioral Hospital07-27-2022 Evaluation note* Encounter Date Diagnosis Assessment Notes Treatment Notes Treatment Clinical Notes Nov, Change in bowel function (ICD-10 - R19.8) ENCOURAGED METAMUCIL CAPSULES DAILY. Nov, Tubular adenoma (ICD-10 - D36.9) WILL REPEAT COLON IN 5 YEARS Nov, Diverticulosis (ICD-10 - K57.90) Nov, Hemorrhoids (ICD-10 - K64.9) [employer] Other 06-28-2022 History of Present illness Narrative* Sarthak Escobar MD, PhD - 11/14/2021 8:31 AM EDT Images from the original note were not included. [facility] FOR MULTIPLE SCLEROSIS FOLLOWUP/ESTABLISHED PATIENT VISIT PRINCIPAL [...] (higher=better functioning) Office Visit from 11/14/2021 in [facility] from 09/15/[address] [facility] OfficeVisit from 11/01/[address] [facility] Upper Extremity Domain T Score 34 30 Lower Extremity Domain T Score 37 40 Cognitive Function Domain T Score 39 41 36 Positive Affect Well Being T Score Ability To Participate In Social Roles T Score 39 43 46 Satisfaction With Social Roles T Score 36 39 Neuro-QoL Symptoms (higher=worse symptoms) Office Visit from 11/14/2021 in [facility] from 09/15/[address] [facility] OfficeVisit from 11/01/[address] [facility] Sleep Domain T Score 64 64 Fatigue Domain T Score 65 69 Anxiety Domain T Score 61 65 Depression Domain T Score 58 60 66 Stigma Domain T Score 57 63 Emotional Behavior Dyscontrol T Score *NeuroQoL is a multi-domain patient-reported quality of life questionnaire. PHQ-9 [facility] from 09/15/[address] [facility] Office Visit from 11/01/[address] [facility] PHQ-9 Score 11 16 *PHQ-9 is a questionnaire for depressive symptoms, with scores 0-4 indicating none, 5-9 mild, 10-14moderate, 15-19 moderately severe, and 20-27 severe symptoms. PROMIS-10 [facility] from 09/15/[address] [facility] Office Visit from 11/01/[address] [facility] Global Physical Health T Score 32.4 32.4 [...] 5 Biceps 5 5 Triceps 5 5 Mandolin Repairer 5 5 Dorsal interossei 5 5 Lower [...] Lymph 1.00 - 4.00 k/uL 0.60 (L) [place]% % 12.0 Abs [place] <0.87 k/uL 0.74 Eosin% % 2.4 Abs [...] 7T brain MRI in 3 months at [place]. Will hold next infusion until reviewing MRI. [...] and Stretching Follow-up: In 3 months at [place] [address] [facility] I spent a total of 40 minutes on the date of the service which included preparing to see the patient, rykg-qm-rzyq patient care, completing clinical documentation, obtaining and/or reviewing separately obtained history, performing a medically appropriate examination, counseling and educating the pat ient/family/caregiver, ordering medications, tests, or procedures, independently interpreting results (not separately reported) and communicating results to the patient/family/caregiver. The patient was discussed with Dr. Escobar. Jessica Clarke PA-C [facility] STAFF PHYSICIAN NOTE OF PERSONAL [...] Sarthak Escobar MD, PhD Associate Staff Neurologist [facility] Multiple Sclerosis [facility] History of Present illness Narrative* RT [...] 2021 TIME: 7:43 AM documented [facility] History of Present illness Narrative* Jessica Clarke PA-C - 09/15/2021 11:19 AM EDT Images from the original note were not included. [facility] MULTIPLE SCLEROSIS FOLLOWUP/ESTABLISHED PATIENT VIRTUAL [...] therapy INTERVAL HISTORY: Usual treating team: Marce/Vince Today's visit is being completed virtually; pt [...] - mood worse Kristin Gracia is new [employer] ATTENDANT PCP - changed anxiety and depression meds [...] Functions (higher=better functioning) Appointment from 09/15/[address] [facility] Office Visit from 11/01/[address] [facility] Office Visit from 07/31/[address] [facility] Upper Extremity Domain T Score 34 30 41.73 Lower Extremity Domain T Score 37 40 41.61 Cognitive Function Domain T Score 41 36 45 Positive Affect Well Being T Score 40.79 Ability To Participate In Social Roles T Score 43 46 39.92 Satisfaction With Social Roles T Score 36 39 43.36 Neuro-QoL Symptoms (higher=worse symptoms) Appointment from 09/15/[address] [facility] Office Visit from 11/01/[address] [facility] Office Visit from 07/31/[address] [facility] Sleep Domain T Score 64 64 64.93 [...] available 4. Consult OT - [facility] [place] 5. Continue with PCP as planned I spent a total of 20 minutes on the date of the service which included preparing to see the patient, [id number] patient care, completing clinical documentation, obtaining and/or reviewing separately obtained history, counseling and educating the patient/family/caregiver, ordering medications, manuel ts, or procedures and communicating results to the patient/family/caregiver. Jessica Clarke PA-C documented [facility] Procedure [facility]03[facility]28[facility] Evaluation note* Encounter Date Diagnosis Assessment Notes Treatment Notes Treatment Clinical Notes Jul, Constipation (ICD-10 - K59.00) Jul, Rectal bleeding (ICD-10 - K62.5) Jul, Rectal pain (ICD-10 - K62.89) Sample of Recticare cream given to patient Jul, Change in stool caliber (ICD-10 - R19.4) [place] [facility] Other Evaluation + Plan note Future Appointments Appointment Date:02/10/2024 03:00:00 PM Scheduled Provider: Location:[facility] Surgical Services Appointment Type:Surgery FT [facility] Evaluation noteNo assessment information available [facility] Work Phone: Evaluation note* Diagnosis Multiple sclerosis, relapsing-remitting (HCC) Multiple sclerosis [facility] Diagnosis Multiple sclerosis (HCC)- Primary Multiple sclerosis Multiple sclerosis, relapsing-remitting (HCC) Multiple sclerosis documented in this encounter [facility] noteNo InformationNort Fanzila Other Evaluation note* Diagnosis Multiple sclerosis, relapsing-remitting (HCC) Multiple sclerosis documented in this encounter [facility] note* Diagnosis Multiple sclerosis, relapsing-remitting (HCC)- Primary Multiple sclerosis [facility]* Diagnosis Encounter for screening mammogram for breast cancer documented in this encounter [facility]* Diagnosis Multiple sclerosis, relapsing-remitting (HCC) Multiple sclerosis documented in this encounter [facility]* Diagnosis Multiple sclerosis (HCC)- Primary Multiple sclerosis documented [facility] this [facility]* Diagnosis Multiple sclerosis, relapsing-remitting (HCC)- Primary Multiple sclerosis [facility]* Diagnosis Multiple sclerosis, relapsing-remitting (HCC)- Primary Multiple sclerosis documented [facility]* Diagnosis Encounter for screening mammogram for breast cancer documented [facility] this encounter [facility]* Diagnosis Multiple sclerosis (HCC)- Primary Multiple sclerosis documented [facility] this [facility]* Diagnosis Multiple sclerosis (CMS/HCC)- Primary Multiple sclerosis Primary hypertension (CMS/HCC) Unspecified essential hypertension Anxiety and depression (CMS/HCC) COPD with exacerbation (CMS/HCC) Non-recurrent acute suppurative otitis media of left ear without spontaneous rupture of tympanic membrane [facility]* Diagnosis Cervical disc disorder with radiculopathy- Primary Brachial neuritis or radiculitis nos Cervical stenosis of spine Spinal stenosis in cervical region Chronic neck pain Cervicalgia documented in this encounter [facility]* Diagnosis Multiple sclerosis (HCC)- Primary Multiple sclerosis documented in this encounter [facility]* Diagnosis Cervical stenosis of spine- Primary Spinal stenosis in cervical region [facility] Diagnosis Left arm weakness- Primary Other musculoskeletal symptoms referable to limbs documented in this encounter [facility]* Diagnosis Multiple sclerosis (HCC)- Primary Multiple sclerosis Vitamin D deficiency Unspecified vitamin D deficiency documented in this encounter [facility]* Diagnosis S/P arthroscopy of left shoulder- Primary documented in this encounter [facility]* Diagnosis S/P arthroscopy of left shoulder [facility] Diagnosis Class 3 severe obesity without [...] skin and nails documented [facility]* Diagnosis Class 3 severe [...] and depression (CMS/HCC) documented in this encounter [facility]* Diagnosis Pre-op testing- Primary Unspecified pre-operative examination Rotator cuff impingement syndrome of left shoulder documented in this encounter [facility]* Diagnosis Diverticulitis- Primary Diverticulitis of colon (without mention of hemorrhage) Class 3 severe obesity without serious comorbidity with body mass index (BMI) of 45.0 to 49.9 in adult, unspecified obesity type (CMS/HCC) documented in this encounter [facility]Evaluation [facility]* Diagnosis Class 3 severe [...] in [facility]* Diagnosis Multiple sclerosis (CMS/HCC)- Primary [...] panic attacks (CMS/HCC) documented in this encounter [facility]* Diagnosis Class 3 severe [...] wellness visit (AWV) in Medicare patient- Primary LROENZO (obstructive sleep apnea) Obstructive sleep apnea (adult) [...] maintaining sleep [facility]* [...] Persistent disorder of initiating or maintaining sleep 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 Mixed incontinence urge and stress (male)(female) Yeast dermatitis documented in this encounter [facility] HealthcareHistory general Narrative - Reported* Type Description Date Surgical History ectopic Surgical History tubal ligation Surgical History caprpal tunnel release [facility] Other History general Narrative - Reported* Type Description Date Surgical History ectopic Surgical History tubal ligation Surgical History caprpal tunnel release Hospitalization History see above [facility] Other Hospital course Narrative No data available for this section [facility] Hospital Discharge instructions No data available for this section [facility] Progress note No data available for this section [facility] Reason for referral (narrative)* Diagnostic Procedure Only (Routine) - Pending Review Specialty Diagnoses / Procedures Referred By Atilio carbone Referred To Contact BR IMAGING Diagnoses Encounter for screening mammogram for breast cancer Procedures ALIYA SCREENING SCREENING MAMMOGRAPHY BI 2-VIEW BREAST INC Valdez Cohen MD [address] [place] [address] [facility] [address] [place] [address] Referral ID Status Reason Start Date Expiration Date Visits Requested Visits Authorized [id number] Pending Review Auto-Generat ed Referral 11/15/2021 12/15/2022 1 1 [facility] for referral (narrative)* Diagnostic Procedure Only (Routine) - Pending Review Specialty Diagnoses / Procedures Referred By Atilio carbone Referred To Contact BR IMAGING Diagnoses Encounter for screening mammogram for breast cancer Procedures ALIYA SCREENING SCREENING MAMMOGRAPHY BI 2-VIEW BREAST INC Valdez Cohen MD [address] [place] [address] [facility] [address] [place] [address] Referral ID Status Reason Start Date Expiration Date Visits Requested Visits Authorized [id number] Pending Review Auto-Generat ed Referral 10/17/2022 11/16/2023 1 1 [facility] for referral (narrative)* Consultation (Routine) Specialty Diagnoses / Procedures Referred By Atilio carbone Referred To Contact Neurology [facility] [address] [place] [address] [place] [address] Aron Chinchilla MD [address] [place] [address] Referral ID Status Reason Start Date Expiration Date V isits Requested Visits Authorized Specialty Services Required [facility] HealthcareReason for visit NarrativeREFERRED BY KRISTIN GRACIA FOR CONSTIPATION, (REFERRAL NOTE RECEIVED)[facility] Other Reason for visit Narrative* Rehabilitation - Outpatient (Routine) - Authorized Specialty Diagnoses / Procedures Referred By Atilio carbone Referred To Contact Physical Therapy Diagnoses S/P arthroscopy of left shoulder Procedures LA OFFICE/OUTPATIENT [facility] MDM 60 MINUTES Eliazar Brooks, DO [address] [place] [address] Phone: tel: fax: Aria Agrawal PT Referral ID Status Reason Start Date Expiration Date Visits Requested Visits Authorized [id number] Authorized Specialty Services Required 4 04/10/2024 12 12 [facility] Summary Purpose Family History Relationship Condition Age at Onset Recorded Date/T alethea father Malignant neoplasm of rectum Unknown Not Specified Hypertension Unknown Cerebrovascular accident (CVA) Unknown brother Diabetes mellitus Unknown Heart disease Unknown sister Diabetes mellitus Unknown Relationship Condition Age at Onset Recorded Date/T alethea father Malignant neoplasm of rectum Unknown mother Hypertension Unknown Cerebrovascular accident (CVA) Unknown brother Diabetes mellitus Unknown Heart disease Unknown sister Diabetes mellitus Unknown father Unknown mother Unknown Advance Directives Advance Directive Response Recorded Date/ Time Advance Directives No September 01, 2 022 8:00am Reason for Referral Specialty Diagnoses / Procedures Referred By Atilio carbone Referred To Contact [facility] Diagnoses Multiple sclerosis, relapsing-remitting (HCC) Procedures CONSULT TO INSTRUCTIONAL MANAGER OCCUPATIONAL THERAPY [facility] 60 MINS Jessica Clarke PA-C [address] [place] [address] [facility] [place] [address] [place] [address] Referral ID Status Reason Start Date Expiration Date Visits Requested Visits Authorized [id number] Pending Review Auto-Generat ed Referral 09/15/2021 09/15/2022 1 1 Specialty Diagnoses / Procedures Referred By Atilio carbone Referred To Contact MR IMAGING Diagnoses Multiple sclerosis, relapsing-remitting (HCC) Procedures MRI BRAIN WO/W IVCON MRI BRAIN BRAIN STEM W/O W/CONTRAST MATERIAL Jessica Clarke PA-C [address] [place] [address] Mr Imaging Referral ID Status Reason Start Date Expiration Date Visits Requested Visits Authorized [id number] Pending Review Auto-Generat ed Referral 09/15/2021 10/15/2022 1 1 Referral ID Status Reason Start Date Expiration Date V isits Requested Visits Authorized [id number] Closed Auto-Generate d Referral 09/15/2021 11/25/2021 1 1 Specialty Diagnoses / Procedures Referred By Contac t Referred To Contact MR IMAGING Diagnoses Multiple sclerosis, relapsing-remitting (HCC) Procedures MRI BRAIN WO/W IVCON MRI BRAIN BRAIN STEM W/O W/CONTRAST MATERIAL Sarthak Escobar MD, PhD [address] [place] [address] Mr Imaging Referral ID Status Reason Start Date Expiration Date Visits Requested Visits Authorized [id number] Pending Review Auto-Generat ed Referral 11/14/2021 12/14/2022 1 1 Specialty Diagnoses / Procedures Referred By Contac t Referred To Contact MR IMAGING Diagnoses Multiple sclerosis, relapsing-remitting (HCC) Procedures MRI CERVICAL SPINE WO/W IVCON MRI SPINAL CANAL CERVICAL W/O & W/CONTR MATRL eJssica Clarke PA-C [address] [place] [address] Mr Imaging Referral ID Status Reason Start Date Expiration Date Visits Requested Visits Authorized [id number] Pending Review Auto-Generat ed Referral 08/30/2022 09/29/2023 1 1 Referral ID Status Reason Start Date Expiration Date Visits Requested Visits Authorized [id number] Pending Review Auto-Generat ed Referral 08/30/2022 09/29/2023 1 1 Specialty Diagnoses / Procedures Referred By Contac t Referred To Contact [facility] Diagnoses Cervical disc disorder with radiculopathy Procedures CONSULT TO PHYSICAL THERAPY PHYSICAL THERAPY EVALUATION HIGH COMPLEX [address] [place] [address] [address] [address] [facility] [place] [address] [place] [address] Referral ID Status Reason Start Date Expiration Date Visits Requested Visits Authorized [id number] Pending Review Auto-Generat ed Referral 07/10/2023 07/09/2024 1 1 Specialty Diagnoses / Procedures Referred By Contac t Referred To Contact MR IMAGING Diagnoses Multiple sclerosis (HCC) Procedures MRI BRAIN WO/W IVCON MRI BRAIN BRAIN STEM W/O W/CONTRAST MATERIAL Jessica Clarke PA-C [address] [place] [phone] Mr Imaging [place] [address] Referral ID Status Reason Start Date Expiration Date Visits Requested Visits Authorized [id number] Pending Review Auto-Generat ed Referral 07/16/2023 08/14/2024 1 1 Specialty Diagnoses / Procedures Referred By Contac t Referred To Contact Diagnoses Cervical stenosis of spine Procedures CONSULT TO SPINE SURGERY OFFICE/OUTPATIENT [facility] 60 MINUTES Jessica Clarke PA-C [address] [place] [phone] Referral ID Status Reason Start Date Expiration Date Visits Requested Visits Authorized [id number] Authorized PCP Requested Referral 08/22/2023 08/21/2024 1 1 Specialty Diagnoses / Procedures Referred By Contac t Referred To Contact MR IMAGING Diagnoses Left arm weakness Procedures MRI CERVICAL SPINE WO IVCON MRI SPINAL CANAL CERVICAL W/O CONTRAST MATRL Katerin Mccoy PA-C [address] [place] [phone] Mr Imaging [place] [address] Referral ID Status Reason Start Date Expiration Date Visits Requested Visits Authorized [id number] Pending Review Auto-Generat ed Referral 09/06/2023 10/05/2024 1 1 Specialty Diagnoses / Procedures Referred By Contac t Referred To Contact [facility] Diagnoses Left arm weakness Procedures EMG(NEURO/NI) NERVE CONDUCTION STUDIES 9-10 STUDIES Katerin Mccoy PA-C [address] [place] [phone] Neurological [place] [address] [place], [place] [phone] Referral ID Status Reason Start Date Expiration Date Visits Requested Visits Authorized [id number] Pending Review Auto-Generat ed Referral 09/06/2023 09/05/2024 1 1 Specialty Diagnoses / Procedures Referred By Atilio t Referred To Contact XR IMAGING Diagnoses Left arm weakness Procedures XR CERV OTHER 4V AP/LAT/FLX/EXT RADEX SPINE CERVICAL 4 OR 5 VIEWS Katerin Mccoy PA-C [address] [place] [phone] Xr Imaging [place] [address] Referral ID Status Reason Start Date Expiration Date Visits Requested Visits Authorized [id number] Pending Review Auto-Generat ed Referral 09/06/2023 10/05/2024 1 1 Specialty Diagnoses / Procedures Referred By Atilio t Referred To Contact Physical Therapy Diagnoses S/P arthroscopy of left shoulder Procedures LA OFFICE/OUTPATIENT [facility] 60 MINUTES Eliazar Brooks, DO [address] [place] [address] Aria Agrawal PT Referral ID Status Reason Start Date Expiration Date Visits Requested Visits Authorized [id number] Pending Review Specialty Services Required 02/25/2024 08/23/2024 [...] Stool,Rectal Bleeding/Pain Constipation, Change in Stool,Rectal Bleeding/Pain Chief Complaint Admit Date Unknown August 22, 2024 10:4 5pm Medications Administered Section Inactive Administered Medications - [...] mg, INTRAVENOUS, ONCE, 1 dose, On [place] 11/3/22 at 0800 Given 03/22/2022 8:20 AM EDT [...] content) DATE CREATED AUTHOR 11/12/[address] [facility] DATE CREATED AUTHOR AUTHOR'S ORGANIZ ATION 11/13/2017 [facility] DATE CREATED AUTHOR AUTHOR'S ORGANIZ ATION 10/02/2022 [facility] DATE CREATED AUTHOR AUTHOR'S ORGANIZ ATION 12/21/2023 [facility] DATE CREATED AUTHOR AUTHOR'S ORGANIZ ATION 02/07/2024 [facility] [place] [facility] DATE CREATED AUTHOR AUTHOR'S ORGANIZ ATION 02/18/2024 [place] [facility] DATE CREATED AUTHOR AUTHOR'S ORGANIZ ATION 08/19/2024 [facility] Specialists [facility] DATE CREATED AUTHOR AUTHOR'S ORGANIZ ATION 08/24/2024 [facility] Medical History (unrecognize d section and content) Includes: Medical History in patient's chartNo Medical History Recorded Evaluations & Outcomes (unre cognized section and content) Includes: Evaluations & Outcomes for active GoalsNo Outcomes Recorded Care Teams (unrecognized sec tion and content) Team Status: Inactive Member Role Status Dates Services [facility] Primary Care Provider Active Tyshawn Palencia MD Attending Provider Active Team Status: Active Member Role Status Dates Services [facility] Primary Care Provider Active Manager Balance Relationship Specialty Start Date End Date Valdez Acosta MD [address] [place] [address] PCP - General Internal Medicine 11/01/20 Manager Balance Relationship Specialty Start Date End Date Valdez Acosta MD [address] [place] [address] 99243 PCP - General Internal Medicine 11/01/20 Manager Balance Relationship Specialty Start Date End Date Valdez Acosta MD [address] [place] [address] 52177 PCP - General Internal Medicine 11/01/20 Manager Balance Relationship Specialty Start Date End Date Valdez Acosta MD [address] [place] [address] 81403 PCP - General Internal Medicine 11/01/20 Manager Balance Relationship Specialty Start Date End Date Valdez Acosta MD [address] [place] [address] 28167 PCP - General Internal Medicine 11/01/20 Manager Balance Relationship Specialty Start Date End Date Valdez Acosta MD [address] [place] [address] 12260 PCP - General Internal Medicine 11/01/20 Manager Balance Relationship Specialty Start Date End Date Valdez Acosta MD [address] [place] [address] 31114 PCP - General Internal Medicine 11/01/20 Manager Balance Relationship Specialty Start Date End Date Valdez Acosta MD [address] [place] [address] 73894 PCP - General Internal Medicine 11/01/20 Manager Balance Relationship Specialty Start Date End Date Valdez Acosta MD [address] [place] [address] PCP - General Internal Medicine 11/01/20 Manager Balance Relationship Specialty Start Date End Date Valdez Acosta MD [address] [place] [address] PCP - General Internal Medicine 11/01/20 Manager Balance Relationship Specialty Start Date End Date Valdez Acosta MD [address] [place] [address] 77867 PCP - General Internal Medicine 11/01/20 Manager Balance Relationship Specialty Start Date End Date Valdez Acosta MD [address] [place] [address] PCP - General Internal Medicine 11/01/20 Manager Balance Relationship Specialty Start Date End Date Valdez Acosta MD [address] [place] [address] 81220 PCP - General Internal Medicine 11/01/20 Manager Balance Relationship Specialty Start Date End Date Valdez Acosta MD [address] [place] [address] 84543 PCP - General Internal Medicine 11/01/20 Manager Balance Relationship Specialty Start Date End Date Maxim Lanza MD [address] [place] [address] PCP - General Family Medicine 04/22/23 Kristin Gracia NP [address] [place] [address] Nurse Practitioner Family Medicine 05/20/22 Manager Balance Relationship Specialty Start Date End Date Maxim Lanza MD [address] [place] [address] PCP - General Family Medicine 04/22/23 Kristin Gracia NP [address] [place] [address] Nurse Practitioner Family Medicine 05/20/22 Manager Balance Relationship Specialty Start Date End Date Valdez Acosta MD [address] [place] [address]363 PCP - General Internal Medicine 11/01/20 Manager Balance Relationship Specialty Start Date End Date Valdez Acosta MD [address] [place] [address]381 PCP - General Internal Medicine 11/01/20 Manager Balance Relationship Specialty Start Date End Date Valdez Acosta MD [address] [place] [address] PCP - General Internal Medicine 11/01/20 Manager Balance Relationship Specialty Start Date End Date Valdez Acosta MD [address] [place] [address] PCP - General Internal Medicine 11/01/20 Manager Balance Relationship Specialty Start Date End Date Valdez Acosta MD [address] [place] [address] PCP - General Internal Medicine 11/01/20 Manager Balance Relationship Specialty Start Date End Date Valdez Acosta MD [address] [place] [address] PCP - General Internal Medicine 11/01/20 Manager Balance Relationship Specialty Start Date End Date Valdez Acosta MD [address] [place] [address] PCP - General Internal Medicine 11/01/20 Manager Balance Relationship Specialty Start Date End Date Maxim Lanza MD [address] [place] [phone] PCP - General Family Medicine 07/15/23 Kristin Gracia NP [address] [place] [address] Primary Care Provider Family Medicine 05/20/22 Manager Balance Relationship Specialty Start Date End Date Maxim Lanza MD [address] [place] [address] PCP - General Family Medicine 07/15/23 Kristin Gracia NP [address] [place] [address] Primary Care Provider Family Medicine 05/20/22 Manager Balance Relationship Specialty Start Date End Date Maxim Lanza MD [address] [place] [address] PCP - General Family Medicine 07/15/23 Kristin Gracia NP [address] [place] [address] Primary Care Provider Family Medicine 05/20/22 Manager Balance Relationship Specialty Start Date End Date Maxim Lanza MD [address] [place] [address] PCP - General Family Medicine 07/15/23 Kristin Gracia NP [address] [place] [address] Primary Care Provider [facility] Medicine 05/20/22 Manager Balance Relationship Specialty Start Date End Date Maxim Lanza MD [address] [place] [address] PCP - General Family Medicine 07/15/23 Kristin Gracia NP [address] [place] [address] Primary Care Provider [facility] Medicine 05/20/22 Manager Balance Relationship Specialty Start Date End Date Maxim Lanza MD [address] [place] [address] PCP - General Family Medicine 07/15/23 Kristin Gracia NP [address] [place] [address] Primary Care Provider Family Medicine 05/20/22 Manager Balance Relationship Specialty Start Date End Date Maxim Lanza MD [address] [place] [address] PCP - General Family Medicine 07/15/23 Kristin Gracia NP [address] [place] [address] Primary Care Provider Family Medicine 05/20/22 Manager Balance Relationship Specialty Start Date End Date Maxim Lanza MD [address] [place] [address] PCP - General Family Medicine 07/15/23 Kristin Gracia NP [address] [place] [address] Primary Care Provider Family Medicine 05/20/22 Manager Balance Relationship Specialty Start Date End Date Maxim Lanza MD [address] [place] [address] PCP - General Family Medicine 07/15/23 Kristin Gracia NP [address] [place] [address] Primary Care Provider Family Medicine 05/20/22 Manager Balance Relationship Specialty Start Date End Date Maxim Lanza MD [address] [place] [address] PCP - General Family Medicine 07/15/23 Kristin Gracia NP [address] [place] [address] Primary Care Provider Family Medicine 05/20/22 Manager Balance Relationship Specialty Start Date End Date Maxim Lanza MD [address] [place] [address] PCP - General Family Medicine 07/15/23 Kristin Gracia NP [address] [place] [address] Primary Care Provider Family Medicine 05/20/22 Manager Balance Relationship Specialty Start Date End Date Maxim Lanza MD [address] [place] [address] PCP - General Family Medicine 07/15/23 Kristin Gracia NP [address] [place] [address] Primary Care Provider Family Medicine 05/20/22 Manager Balance Relationship Specialty Start Date End Date Maxim Lanza MD [address] [place] [address] PCP - General Family Medicine 07/15/23 Kristin Gracia NP [address] [place] [address] Primary Care Provider Family Medicine 05/20/22 Manager Balance Relationship Specialty Start Date End Date Maxim Lanza MD [address] [place] [address] PCP - General Family Medicine 07/15/23 Kristin Gracia NP [address] [place] [address] Primary Care Provider Family Medicine 05/20/22 Manager Balance Relationship Specialty Start Date End Date Maxim Lanza MD [address] [place] [address] PCP - General Family Medicine 07/15/23 Kristin Gracia NP [address] [place] [address] Primary Care Provider Family Medicine 05/20/22 Manager Balance Relationship Specialty Start Date End Date Maxim Lanza MD [address] [place] [address] PCP - General Family Medicine 07/15/23 Kristin Gracia NP [address] [place] [address] Primary Care Provider Family Medicine 05/20/22 Manager Balance Relationship Specialty Start Date End Date Maxim Lanza MD [address] [place] [address] PCP - General Family Medicine 07/15/23 Kristin Gracia NP [address] [place] [address] Primary Care Provider Family Medicine 05/20/22 Manager Balance Relationship Specialty Start Date End Date Maxim Lanza MD [address] [place] [address] PCP - General Family Medicine 07/15/23 Kristin Gracia NP [address] [place] [address] Primary Care Provider Family Medicine 05/20/22 Manager Balance Relationship Specialty Start Date End Date Maxim Lanza MD [address] [place] [address] PCP - General Family Medicine 07/15/23 Kristin Gracia, KIRK [address] [place] [address] Primary Care Provider Family Medicine 05/20/22 Manager Balance Relationship Specialty Start Date End Date Valdez Acosta MD [address] [place], [place] [phone] PCP - General Internal Medicine 11/01/20 Sherrie Smith PA-C [facility] [place], [place] [phone] Nurse Research Internal Medicine 04/26/24 Elizabeth Lopez, DIRECTOR OF MATERIALS.CONTROL SYSTEMS DRAFTING OFFICER [address] [place] [address] [id number] Nurse Research Family Medicine 04/26/24 Manager Balance Relationship Specialty Start Date End Date Maxim Lanza MD [address] [place] [address]6810[address] PCP - General Family Medicine 07/15/23 Kristin Gracia, KIRK [address] [place] [address] Primary Care Provider Family Medicine 05/20/22 Manager Balance Relationship Specialty Start Date End Date Maxim Lanza MD [address] [place] [address] PCP - General Family Medicine 07/15/23 Kristin Gracia NP [address] [place] [address] Primary Care Provider Family Medicine 05/20/22 Manager Balance Relationship Specialty Start Date End Date Maxim Lanza MD [address] [place] [address]10[address] PCP - General Family Medicine 07/15/23 Kristin Gracia NP [address] [place] [address] Primary Care Provider Family Medicine 05/20/22 Manager Balance Relationship Specialty Start Date End Date Maxim Lanza MD [address] [place] [address] PCP - General Family Medicine 07/15/23 Kristin Gracia NP [address] [place] [address] Primary Care Provider Family Medicine 05/20/22 Manager Balance Relationship Specialty Start Date End Date Maxim Lanza MD [address] [place] [address] PCP - General Family Medicine 07/15/23 Kristin Gracia NP [address] [place] [address] Primary Care Provider Family Medicine 05/20/22 Manager Balance Relationship Specialty Start Date End Date Maxim Lanza MD [address] [place] [address] PCP - General Family Medicine 07/15/23 Kristin Gracia NP [address] [place] [address] Primary Care Provider Family Medicine 05/20/22 Manager Balance Relationship Specialty Start Date End Date Maxim Lanza MD [address] [place] [address] PCP - General Family Medicine 07/15/23 Kristin Gracia NP [address] [place] [address]1002 Primary Care Provider Family Medicine 05/20/22 Manager Balance Relationship Specialty Start Date End Date Maxim Lanza MD [address] [place] [address] PCP - General Family Medicine 07/15/23 Kristin Gracia NP [address] [place] [address] Primary Care Provider Family Medicine 05/20/22 Manager Balance Relationship Specialty Start Date End Date Maxim Lanza MD [address] [place] [address] PCP - General Family Medicine 07/15/23 Kristin Gracia NP [address] [place] [address] Primary Care Provider Family Medicine 05/20/22 Manager Balance Relationship Specialty Start Date End Date Maxim Lanza MD [address] [place] [address] PCP - General Family Medicine 07/15/23 Kristin Gracia NP [address] [place] [address] Primary Care Provider Family Medicine 05/20/22 Manager Balance Relationship Specialty Start Date End Date Maxim Lanza MD [address] [place] [address] PCP - General Family Medicine 07/15/23 Kristin Gracia NP [address] [place] [address] Primary Care Provider [facility] 05/20/22 Team Status: Inactive Member Role Status Dates Tripp Gruber MD Attending Provider Active St art: August 22, 2024 End: August 22, 2024 Manager Balance Relationship Specialty Start Date End Date Maxim Lanza MD [address] [place] [address] PCP - General Family Medicine 07/15/23 Kristin Gracia NP [address] [place] [address] Primary Care Provider Family Medicine 1/1/23 Goals (unrecognized section and content) Goals may be documented in a n alternate section Source Comments (unrecognize d section and content) In the event this informatio n is protected by the Federal Confidentiality of Alcohol and Drug Abuse Patient Records regulations: The Federal rules restrict any use of the information to criminally investigate or prosecute any alcohol or drug abuse patient.[facility] the event this information is protected by the Federal Confidentiality of Alcohol and Drug Abuse Patient Records regulations: The Federal rules restrict any use of the information to criminally investigate or prosecute any alcohol or drug abuse patient.[facility] the event this information is protected by the Federal Confidentiality of Alcohol and Drug Abuse Patient Records regulations: The Federal rules restrict any use of the information to criminally investigate or prosecute any alcohol or drug abuse patient.[facility] the event this information is protected by the Federal Confidentiality of Alcohol and Drug Abuse Patient Records regulations: The Federal rules restrict any use of the information to criminally investigate or prosecute any alcohol or drug abuse patient.[facility] the event this information is protected by the Federal Confidentiality of Alcohol and Drug Abuse Patient Records regulations: The Federal rules restrict any use of the information to criminally investigate or prosecute any alcohol or drug abuse patient.[facility] the event this information is protected by the Federal Confidentiality of Alcohol and Drug Abuse Patient Records regulations: The Federal rules restrict any use of the information to criminally investigate or prosecute any alcohol or drug abuse patient.[facility] the event this information is protected by the Federal Confidentiality of Alcohol and Drug Abuse Patient Records regulations: The Federal rules restrict any use of the information to criminally investigate or prosecute any alcohol or drug abuse patient.[facility] the event this information is protected by the Federal Confidentiality of Alcohol and Drug Abuse Patient Records regulations: The Federal rules restrict any use of the information to criminally investigate or prosecute any alcohol or drug abuse patient.[facility] the event this information is protected by the Federal Confidentiality of Alcohol and Drug Abuse Patient Records regulations: The Federal rules restrict any use of the information to criminally investigate or prosecute any alcohol or drug abuse patient.[facility] the event this information is protected by the Federal Confidentiality of Alcohol and Drug Abuse Patient Records regulations: The Federal rules restrict any use of the information to criminally investigate or prosecute any alcohol or drug abuse patient.[facility] the event this information is protected by the Federal Confidentiality of Alcohol and Drug Abuse Patient Records regulations: The Federal rules restrict any use of the information to criminally investigate or prosecute any alcohol or drug abuse patient.[facility] the event this information is protected by the Federal Confidentiality of Alcohol and Drug Abuse Patient Records regulations: The Federal rules restrict any use of the information to criminally investigate or prosecute any alcohol or drug abuse patient.[facility] the event this information is protected by the Federal Confidentiality of Alcohol and Drug Abuse Patient Records regulations: The Federal rules restrict any use of the information to criminally investigate or prosecute any alcohol or drug abuse patient.[facility] the event this information is protected by the Federal Confidentiality of Alcohol and Drug Abuse Patient Records regulations: The Federal rules restrict any use of the information to criminally investigate or prosecute any alcohol or drug abuse patient.[facility] the event this information is protected by the Federal Confidentiality of Alcohol and Drug Abuse Patient Records regulations: The Federal rules restrict any use of the information to criminally investigate or prosecute any alcohol or drug abuse patient.[facility] HospitalIn the event this information is protected by the Federal Confidentiality of Alcohol and Drug Abuse Patient Records regulations: The Federal rules restrict any use of the information to criminally investigate or prosecute any alcohol or drug abuse patient.[facility] Hospital[facility] the event this information is protected by the Federal Confidentiality of Alcohol and Drug Abuse Patient Records regulations: The Federal rules restrict any use of the information to criminally investigate or prosecute any alcohol or drug abuse patient.[facility] HospitalIn the event this information is protected by the Federal Confidentiality of Alcohol and Drug Abuse Patient Records regulations: The Federal rules restrict any use of the information to criminally investigate or prosecute any alcohol or drug abuse patient.[facility] HospitalIn the event this information is protected by the Federal Confidentiality of Alcohol and Drug Abuse Patient Records regulations: The Federal rules restrict any use of the information to criminally investigate or prosecute any alcohol or drug abuse patient.[facility] HospitalIn the event this information is protected by the Federal Confidentiality of Alcohol and Drug Abuse Patient Records regulations: The Federal rules restrict any use of the information to criminally investigate or prosecute any alcohol or drug abuse patient.[facility] HospitalIn the event this information is protected by the Federal Confidentiality of Alcohol and Drug Abuse Patient Records regulations: The Federal rules restrict any use of the information to criminally investigate or prosecute any alcohol or drug abuse patient.[facility] HospitalIn the event this information is protected by the Federal Confidentiality of Alcohol and Drug Abuse Patient Records regulations: The Federal rules restrict any use of the information to criminally investigate or prosecute any alcohol or drug abuse patient.[facility] HospitalIn the event this information is protected by the Federal Confidentiality of Alcohol and Drug Abuse Patient Records regulations: The Federal rules restrict any use of the information to criminally investigate or prosecute any alcohol or drug abuse patient.[facility] HospitalIn the event this information is protected by the Federal Confidentiality of Alcohol and Drug Abuse Patient Records regulations: The Federal rules restrict any use of the information to criminally investigate or prosecute any alcohol or drug abuse patient.[facility] HospitalIn the event this information is protected by the Federal Confidentiality of Alcohol and Drug Abuse Patient Records regulations: The Federal rules restrict any use of the information to criminally investigate or prosecute any alcohol or drug abuse patient.[facility] HospitalIn the event this information is protected by the Federal Confidentiality of Alcohol and Drug Abuse Patient Records regulations: The Federal rules restrict any use of the information to criminally investigate or prosecute any alcohol or drug abuse patient.[facility] HospitalIn the event this information is protected by the Federal Confidentiality of Alcohol and Drug Abuse Patient Records regulations: The Federal rules restrict any use of the information to criminally investigate or prosecute any alcohol or drug abuse patient.[facility] HospitalIn the event this information is protected by the Federal Confidentiality of Alcohol and Drug Abuse Patient Records regulations: The Federal rules restrict any use of the information to criminally investigate or prosecute any alcohol or drug abuse patient.[facility] HospitalIn the event this information is protected by the Federal Confidentiality of Alcohol and Drug Abuse Patient Records regulations: The Federal rules restrict any use of the information to criminally investigate or prosecute any alcohol or drug abuse patient.[facility] Reason for Visit (unrecogniz ed section and content) Reason Comments IV Medication Administration [facility] Specialty Diagnoses / Procedures Referred By Atilio t Referred To Contact Diagnoses Multiple sclerosis (HCC) G35 (ICD-10-CM) - Multiple sclerosis (HCC) Procedures INJECTION, OCRELIZUMAB, 1 MG J2350 - INJECTION, OCRELIZUMAB, 1 MG Sarthak Escobar MD, PhD [address] [place] [place] [address] David Chao Kriss Al [address] [place] [address] Referral ID Status Reason Start Date Expiration Date V isits Requested Visits Authorized [id number] Pending Review 12/06/2020 03/22/2023 4 4 Reason Comments Established Patient Follow-Up Reason Comments Infusion [facility] Referral ID Status Reason Start Date Expiration Date V isits Requested Visits Authorized [id number] Pending Review 12/06/2020 03/01/2022 2 2 Specialty Diagnoses / Procedures Referred By Contac t Referred To Contact MR IMAGING Diagnoses Multiple sclerosis, relapsing-remitting (HCC) Procedures MRI BRAIN WO/W IVCON MRI BRAIN BRAIN STEM W/O W/CONTRAST MATERIAL Jessica Clarke PA-C [address] [place] [address] Mr Imaging Referral ID Status Reason Start Date Expiration Date V isits Requested Visits Authorized [id number] Closed Auto-Generate d Referral 09/15/2021 11/25/2021 1 1 Reason Comments Established Patient Follow-Up Reason Comments [facility] Specialty Diagnoses / Procedures Referred By Contac t Referred To Contact [facility] Diagnoses Multiple sclerosis, relapsing-remitting (HCC) Procedures CONSULT TO INSTRUCTIONAL MANAGER OCCUPATIONAL THERAPY [facility] COM[facility]X 60 MINS Jessica Clarke PA-C [address] [place] [address] [facility] [address] [place] [address] Referral ID Status Reason Start Date Expiration Date V isits Requested Visits Authorized [id number] Closed Auto-Generate d Referral 09/15/2021 05/19/2022 1 1 Reason Comments Appointment Called pt LVM to see about setting up pt and psycology. Reason Comments Established Patient Follow-Up Reason Comments Patient Update Reason Comments URI Reason Comments Consult Cervical pain Specialty Diagnoses / Procedures Referred By Contac t Referred To Contact [facility] Diagnoses Cervical stenosis of spine Procedures CONSULT TO [facility] OFFICE/OUTPATIENT NEW HIGH MDM 60 MINUTES Jessica Clarke PA-C [address] [place] [address] Referral ID Status Reason Start Date Expiration Date V isits Requested Visits Authorized [id number] Closed PCP Requested Referral 06/13/2023 06/12/2024 1 1 Reason Comments Orders Order for MRI needed for Brain and Cervical Reason Comments Patient Question Reason Comments Established Patient Reason Comments Orders Reason Comments Post-op PO Lt shoulder scope prob RCR TSCNCO 02/10/24 Specialty Diagnoses / Procedures Referred By Contac t Referred To Contact Physical Therapy Diagnoses S/P arthroscopy of left shoulder Procedures LA OFFICE/OUTPATIENT NEW HIGH MDM 60 MINUTES Eliazar Brooks, DO [address] [place] [address] Aria Agrawal PT Referral ID Status Reason Start Date Expiration Date Visits Requested Visits Authorized [id number] Pending Review Specialty Services Required 02/25/2024 08/23/2024 [...] BE BASED ON THE PRIMARY CLINICAL RECORDS. [employer] provides no warranty or guarantee of the accuracy or completeness of information in this document.
[2024-08-25 19:45] LABS: Basophils Percent Auto 0.5 % (0.2-2.0); Eosinophils Absolute Auto 0.1 10^3/uL (0.0-0.7); Eosinophils Percent Auto 1.6 % (0.9-7.0); Hematocrit 40.7 % (36.0-48.0); Hemoglobin 12.8 g/dL (12.0-16.0); Immature Granulocytes Abs Auto 0.01 10^3/uL (0.00-0.03); Immature Granulocytes Pct Auto 0.1 % (0.0-0.5); Lymphocytes Percent Auto 11.8 % (20.5-60.0); Mean Corpuscular HGB Conc 31.4 g/dL (29.9-35.2); Mean Corpuscular Hemoglobin 27.8 pg (26.7-34.0); Mean Corpuscular Volume 88.3 fL (81.0-99.0); Mean Platelet Volume 11.9 fL (9.5-13.5); Monocytes Absolute Auto 0.9 10^3/uL (0.3-0.8); Monocytes Percent Auto 9.9 % (1.7-12.0); Neutrophils Absolute Auto 6.6 10^3/uL (1.4-6.5); Neutrophils Percent Auto 76.1 % (43.0-75.0); Platelet Count 211 10^3/uL (150-450); Red Blood Count 4.61 10^6/uL (4.20-5.40); Red Cell Distribution Width 14.5 % (11.0-15.0); White Blood Count 8.7 10^3/uL (4.0-11.0)
[2024-08-25 20:00] LABS: Alanine Aminotransferase 21 U/L (14-59); Albumin Globulin Ratio 0.6; Albumin Level 2.8 g/dL (3.4-5.0); Alkaline Phosphatase 92 U/L (46-116); Anion Gap 9.4; Aspartate Amino Transferase 23 U/L (15-37); BUN Creatinine Ratio 8.5; Bilirubin Total 0.3 mg/dL (0.2-1.0); Carbon Dioxide 30.5 mmol/L (21.0-32.0); Chloride 107 mmol/L (98-107); Estimated GFR (African America >60 (>=60 mL/min/1.73m^2); Estimated GFR (Non-African Ame 54 (>=60 mL/min/1.73m^2); Globulin 4.4 g/dL; Glucose 88 mg/dL (74-106); Potassium 3.9 mmol/L (3.5-5.1); Sodium 143 mmol/L (136-145); Total Protein 7.2 g/dL (6.4-8.2)
[2024-08-25] MEDS: 0.9 % SODIUM CHLORIDE 1,000 ML 999 ML IV (20:04)
[2024-08-25] MEDS: ONDANSETRON PF 4 MG/2 ML VIAL IV (20:04)
[2024-08-25] MEDS: DICYCLOMINE HCL 20 MG/2 ML VIAL IM (20:04)
[2024-08-25 20:17] LABS: Bilirubin Urine NEGATIVE (NEGATIVE); Blood Urine NEGATIVE (NEGATIVE); Clarity Urine CLEAR (CLEAR); Color Urine LT. YELLOW (YELLOW); Glucose Urine UA NEGATIVE (NEGATIVE); Ketones Urine NEGATIVE (NEGATIVE); Leukocyte Esterase Urine NEGATIVE (NEGATIVE); Nitrite Urine NEGATIVE (NEGATIVE); Protein Urine TRACE mg/dL (NEG/TRACE); Urobilinogen Urine 0.2 EU/dL (0.2-1.0)
[2024-08-25 20:20] LABS: Urine Microscopic Indicated NO
== END 2024-08-25 21:30 | disposition home or self-care (01) ==
PROVIDERS: Nurse Practitioner Family; Emergency Provider Emergency Medicine; PCP Nurse Practitioner
DX: R10.30 Lower abdominal pain, unspecified (principal); Z87.440 Personal history of urinary (tract) infections
CPT/HCPCS: 36415; 80053; 81003; 85025; 96361; 96372; 96374; 99285; J0500; J2405

== ENCOUNTER 2024-09-18 14:32 | Outpatient (REF) | payer MEDICARE, SELFPAY ==
[2024-09-18 15:18] LABS: Basophils Absolute Auto 0.1 10^3/uL (0.0-0.1); Basophils Percent Auto 0.7 % (0.2-2.0); Eosinophils Absolute Auto 0.3 10^3/uL (0.0-0.7); Eosinophils Percent Auto 2.3 % (0.9-7.0); Hematocrit 37.9 % (36.0-48.0); Hemoglobin 11.7 g/dL (12.0-16.0); Immature Granulocytes Abs Auto 0.05 10^3/uL (0.00-0.03); Immature Granulocytes Pct Auto 0.4 % (0.0-0.5); Lymphocytes Absolute Auto 0.8 10^3/uL (1.2-3.8); Lymphocytes Percent Auto 6.3 % (20.5-60.0); Mean Corpuscular HGB Conc 30.9 g/dL (29.9-35.2); Mean Corpuscular Hemoglobin 27.1 pg (26.7-34.0); Mean Corpuscular Volume 87.7 fL (81.0-99.0); Mean Platelet Volume 11.5 fL (9.5-13.5); Monocytes Percent Auto 7.5 % (1.7-12.0); Neutrophils Absolute Auto 10.7 10^3/uL (1.4-6.5); Neutrophils Percent Auto 82.8 % (43.0-75.0); Platelet Count 218 10^3/uL (150-450); Red Blood Count 4.32 10^6/uL (4.20-5.40); Red Cell Distribution Width 14.9 % (11.0-15.0); White Blood Count 12.9 10^3/uL (4.0-11.0)
[2024-09-18 15:28] LABS: Calcium 8.9 mg/dL (8.5-10.1); Carbon Dioxide 20.5 mmol/L (21.0-32.0); Chloride 107 mmol/L (98-107); Glucose 115 mg/dL (74-106); Potassium 5.5 mmol/L (3.5-5.1); Sodium 145 mmol/L (136-145)
[2024-09-18 15:39] LABS: BUN Creatinine Ratio 8.5; Estimated GFR (African America 3 (>=60 mL/min/1.73m^2); Estimated GFR (Non-African Ame 2 (>=60 mL/min/1.73m^2)
== END 2024-09-18 14:33 | disposition home or self-care (01) ==
LOC: LAB 14:32
PROVIDERS: PCP Nurse Practitioner; Visit Provider Family Medicine
DX: R41.82 Altered mental status, unspecified (principal)
CPT/HCPCS: 36415; 80048; 85025

== ENCOUNTER 2024-09-18 17:05 | Emergency (ER) | payer MEDICARE, SELFPAY ==
[2024-09-18] VITALS (32 sets, daily range): BP systolic 129–173; BP diastolic 0–112; PULSE 76–100; TEMP 36.5–37.2; O2SAT 86–100
--- NOTE | 2024-09-18 17:11 | ECG_ITS ---
[facility] Test Date: 2024-09-18 Pat Name: NITHYA VASQUEZ Department: Room: - Gender: Female Admissions Advisor: : [id number] Requested By: [id number] Order Number: [id number] Reading MD: ARTURO MOY M.D. Measurements Intervals [place] Rate: 76 P: 90 IA: 160 QRS: 72 QRSD: 74 T: 59 QT: 384 QTc: 415 Interpretive Statements 1100 Sinus rhythm 6220 Possible left atrial enlargement 9130 borderline ECG No previous ECG available for comparison Electronically Signed On 09-18-2024 17:51:21 EDT by ARTURO MOY M.D.
[2024-09-18 17:34] LABS: INR 1.13; Prothrombin Time 11.8 sec (9.0-11.6)
[2024-09-18 17:41] LABS: Bilirubin Urine NEGATIVE (NEGATIVE); Blood Urine NEGATIVE (NEGATIVE); Clarity Urine CLEAR (CLEAR); Color Urine LT. YELLOW (YELLOW); Glucose Urine UA NEGATIVE (NEGATIVE); Ketones Urine NEGATIVE (NEGATIVE); Leukocyte Esterase Urine NEGATIVE (NEGATIVE); Nitrite Urine NEGATIVE (NEGATIVE); Protein Urine NEGATIVE (NEG/TRACE); Urobilinogen Urine 0.2 EU/dL (0.2-1.0)
--- NOTE | 2024-09-18 17:42 | ED.RECABL1 ---
HPI - Recheck/Abnormal Lab/Rx General Chief Complaint: Recheck/Abnormal Lab/Rx Stated Complaint: CRITICAL LABS Time Seen by Provider: 09/18/24 17:10 Source: other Source comment: Report from [facility] Mode of arrival: ambulance History of Present Illness HPI narrative: Patient had a blood workup done as outpatient in the past with care center found that she have acute kidney injury, it was noted that the patient was evaluated earlier last month for UTI and abdominal cramping, the patient apparently has been feeling weak and tired on arrival. She is cooperative but she looks tired The patient denies any specific pain she mentioned that she ate before arrival although she did not specify what she did eat Related Data Home Medications ?Medication ?Instructions ?Recorded ?Confirmed aripiprazole 10 mg tablet 10 mg PO DAILY 08/23/24 08/23/24 buspirone 5 mg tablet 5 mg PO BID 08/23/24 08/23/24 buspirone 7.5 mg tablet 7.5 mg PO Q8H PRN anxiety 08/23/24 08/23/24 cetirizine 10 mg tablet 10 mg PO DAILY 08/23/24 08/23/24 escitalopram oxalate 10 mg tablet 10 mg PO DAILY 08/23/24 08/23/24 mirtazapine 15 mg tablet 15 mg PO .hs 08/23/24 08/23/24 nystatin 100,000 unit/gram topical 1 applic topical DAILY 08/23/24 08/23/24 powder ([facility]) Previous Rx's ?Medication ?Instructions ?Recorded ciprofloxacin HCl 500 mg tablet 500 mg PO Q12H 7 days #14 tabs 08/24/24 dicyclomine 10 mg capsule 10 mg PO TID PRN abdominal pain 08/25/24 #10 caps Allergies Allergy/AdvReac Type Severity Reaction Status Date / Time No Known Drug Allergies Allergy Verified 08/25/24 19:29 Review of Systems ROS Status of ROS 10 or more systems reviewed and unremarkable except as noted in history and below [facility] Medical History (Updated 09/18/24 @ 18:59 by Libertad Cespedes MD) Bipolar 1 disorder ?F31.9 - Bipolar disorder, unspecified (ICD-10) Pressure injury of sacral region, stage 2 ?L89.152 - Pressure ulcer of sacral region, stage 2 (ICD-10) Obesity ?E66.9 - Obesity, unspecified (ICD-10) Multiple sclerosis ?G35 - Multiple sclerosis (ICD-10) Social History Highest level of school completed/degree received: high school graduate Little interest or pleasure in doing things: not at all Feeling down, depressed, or hopeless: not at all Exam Narrative Exam Narrative: Nurses notes and vital signs reviewed and patient is not hypoxic. General: The patient looked tired Skin: Warm, dry, no pallor noted. No rash. Head: Normocephalic, atraumatic. Neck: Supple, non-tender. Eye: Pupils are equal, round and EOMI. No scleral icterus. Cardiovascular: Regular Rate and Rhythm without murmur, gallop or rub. Respiratory: No accessory muscle use or respiratory distress. Lungs are clear to auscultation, no wheezing, rales or rhonchi Chest Wall: no tenderness Back: No midline thoracic or lumbar vertebral tenderness. No CVA tenderness Musculoskeletal: normal ROM, no calf or popliteal tenderness, no lower extremity edema/swelling GI: Abdomen is distended with suprapubic discomfort Neurological: A&O x4. No cranial nerve dysfunction observed. Moves all extremities Psychiatric: Cooperative and interactive. Normal mood and affect. Constitutional Vital Signs, click to edit/add: Last Vital Signs Temp 97.7 F 09/18/24 17:15 Pulse 77 09/18/24 17:08 Resp 24 H 09/18/24 17:08 BP 130/86 09/18/24 17:08 Pulse Ox 97 09/18/24 17:08 O2 Del Method Room Air 09/18/24 17:08 Course Vital Signs Vital signs: Vital Signs Pulse Rate 77 09/18/24 17:08 Respiratory Rate 24 H 09/18/24 17:08 Blood Pressure 130/86 09/18/24 17:08 Pulse Oximetry 97 09/18/24 17:08 Oxygen Delivery Method Room Air 09/18/24 17:08 Temperature 97.7 F 09/18/24 17:15 Pulse Rate 77 09/18/24 17:08 Respiratory Rate 24 H 09/18/24 17:08 Blood Pressure 130/86 09/18/24 17:08 Pulse Oximetry 97 09/18/24 17:08 Oxygen Delivery Method Room Air 09/18/24 17:08 MDM - Recheck/Abnormal Lab/Rx MDM Narrative Medical decision making narrative: The patient EKG in the ER showing sinus rhythm with a heart rate [address] elevation or depression Upon arrival the patient was found to be in urinary tension and upon placing a Ayala catheter the patient was able to urinate almost 2200 cc instantly The patient had a CAT scan that shows a possibility of a malignancy in the right side of the brain Patient case will be discussed with neurosurgery [facility] The patient CBC did show mild leukocytosis and the chemistry confirmed the acute kidney injury The patient was accepted by Lab Data Labs: Lab Results 09/18/24 09/18/24 09/18/24 Range/Units 17:12 17:26 18:10 PT 11.8 H (9.0-11.6) sec INR 1.13 Sodium 143 (136-145) mmol/L Potassium 5.5 H (3.5-5.1) mmol/L Chloride 108 H (98-107) mmol/L Carbon Dioxide 20.2 L (21.0-32.0) mmol/L Anion Gap 20.3 BUN 124.0 H* (7.0-18.0) mg/dL Creatinine 14.85 H* (0.55-1.02) mg/dL Est GFR ( Amer) 3 L (>=60 mL/min/1.73m^2) Est GFR (Non-Af Amer) 3 L (>=60 mL/min/1.73m^2) BUN/Creatinine Ratio 8.4 Glucose 93 (74-106) mg/dL Calcium 9.2 (8.5-10.1) mg/dL Total Bilirubin 0.4 (0.2-1.0) mg/dL AST 11 L (15-37) U/L ALT 17 (14-59) U/L Alkaline Phosphatase 91 (46-116) U/L Total Protein 7.6 (6.4-8.2) g/dL Albumin 2.5 L (3.4-5.0) g/dL Globulin 5.1 g/dL Albumin/Globulin Ratio 0.5 Urine Color Lt. yellow (YELLOW) Urine Clarity Clear (CLEAR) Urine pH 6.0 (5.0-9.0) Ur Specific [place] 1.010 (1.005-1.025) Urine Protein Negative (NEG/TRACE) mg/dL Urine Glucose (UA) Negative (NEGATIVE) mg/dL Urine Ketones Negative (NEGATIVE) mg/dL Urine Occult Blood Negative (NEGATIVE) Urine Nitrite Negative (NEGATIVE) Urine Bilirubin Negative (NEGATIVE) Urine Urobilinogen 0.2 (0.2-1.0) EU/dL Ur Leukocyte Esterase Negative (NEGATIVE) Discharge Plan Discharge Chief Complaint: Recheck/Abnormal Lab/Rx Clinical Impression: BRANDON (acute kidney injury), Acute uremia, Brain mass Patient Disposition: [facility]
[2024-09-18 17:46] LABS: Urine Microscopic Indicated NO
[2024-09-18] MEDS: 0.9 % SODIUM CHLORIDE 1,000 ML 1000 ML IV (18:28)
[2024-09-18 18:46] LABS: Alanine Aminotransferase 17 U/L (14-59); Albumin Globulin Ratio 0.5; Albumin Level 2.5 g/dL (3.4-5.0); Alkaline Phosphatase 91 U/L (46-116); Anion Gap 20.3; Aspartate Amino Transferase 11 U/L (15-37); BUN Creatinine Ratio 8.4; Bilirubin Total 0.4 mg/dL (0.2-1.0); Calcium 9.2 mg/dL (8.5-10.1); Carbon Dioxide 20.2 mmol/L (21.0-32.0); Chloride 108 mmol/L (98-107); Estimated GFR (African America 3 (>=60 mL/min/1.73m^2); Estimated GFR (Non-African Ame 3 (>=60 mL/min/1.73m^2); Globulin 5.1 g/dL; Glucose 93 mg/dL (74-106); Potassium 5.5 mmol/L (3.5-5.1); Sodium 143 mmol/L (136-145); Total Protein 7.6 g/dL (6.4-8.2)
--- NOTE | 2024-09-18 19:53 | ED_ITS ---
HPI - Recheck/Abnormal Lab/Rx General Chief Complaint: Recheck/Abnormal Lab/Rx Stated Complaint: CRITICAL LABS Time Seen by Provider: 09/18/24 17:10 Source: other Source comment: Report from [facility] Mode of arrival: ambulance Related Data Home Medications ?Medication ?Instructions ?Recorded ?Confirmed aripiprazole 10 mg tablet 10 mg PO DAILY 08/23/2411/11 buspirone 5 mg tablet 5 mg PO BID 08/23/24 5 buspirone 7.5 mg tablet 7.5 mg PO Q8H PRN anxiety 08/23/24 cetirizine 10 mg tablet 10 mg PO DAILY 08/23/2411/11 escitalopram oxalate 10 mg tablet 10 mg PO DAILY 08/2308/23/24 mirtazapine 15 mg tablet 15 mg PO .hs 08/23/24 nystatin 100,000 unit/gram topical 1 applic topical DA TOM 08/23/24 08/23/24 powder ([facility]) Previous Rx's ?Medication ?Instructions ?Recorded ciprofloxacin HCl 500 mg tablet 500 mg PO Q12H 7 days #14 tabs 08/24/24 dicyclomine 10 mg capsule 10 mg PO TID PRN abdominal p ain 08/25/24 #10 caps Allergies Allergy/AdvReac Type Severity Reaction Status Date / Time No Known Drug Allergies Allergy Verified 08/25/24 19:29 [facility] Medical History (Updated 09/18/24 @ 18:59 by Libertad Cespedes MD) Bipolar 1 disorder ?F31.9 - Bipolar disorder, unspecified (ICD-10) Pressure injury of sacral region, stage 2 ?L89.152 - Pressure ulcer of sacral region, stage 2 (ICD-10) Obesity ?E66.9 - Obesity, unspecified (ICD-10) Multiple sclerosis ?G35 - Multiple sclerosis (ICD-10) Social History Highest level of school completed/degree received: high school graduate Little interest or pleasure in doing things: not at all Feeling down, depressed, or hopeless: not at all Exam Constitutional Vital Signs, click to edit/add: Last Vital Signs Temp 98.9 F 09/18/24 20:01 Pulse 100 H 05/02/25 22:58 Resp 28 H 09/18/24 22:58 BP 164/104 H 09/18/24 22:58 Pulse Ox 96 09/18/24 22:58 O2 Del Method Room Air 09/18/24 20:23 Course Reevaluation(s) Reevaluation #1: I personally called the patient's daughter Maylin and notified her of the patient's presentation in the emergency department and the unfortunate renal and cerebral findings. She is aware that her mother is going to be transferred to a higher level of care. As she is the power of commercial attorney, I respectfully asked her that if her mother were to stop breathing or her heart would stop would she and her mother and other family members desire CPR which would include chest compressions as well as intubation. The patient's daughter states that she would not at this time to make certain that it is witnessed I had the patient's room nurse also witnessed that conversation so that there are no questions as to the intensity of care that we are providing at the [facility]. Appropriate appropriate paperwork was completed. Time: 19:21 Reevaluation #2: Dr. Mi from [facility] did agree to accept the transfer of the patient. Dr. Hernandez the neurosurgeon accepted the patient prior to at 20:20. Time: 20:42 Reevaluation #3: I personally called the patient's daughter Maylin. I left a voice message on the machine. They previously believe that she was getting transferred to [facility] so I indicated to them that there was a change in destination based on neurosurgery recommendations. The patient is at [facility]. Time: 23:29 Vital Signs Vital signs: Vital Signs Pulse Rate 77 09/18/24 17:08 Respiratory Rate 24 H 09/18/24 17:08 Blood Pressure 130/86 09/18/24 17:08 Pulse Oximetry 97 09/18/24 17:08 Oxygen Delivery Method Room Air 09/18/24 17:08 Temperature 98.9 F 09/18/24 20:01 Pulse Rate 100 H 09/18/24 22:58 Respiratory Rate 28 H 09/18/24 22:58 Blood Pressure 164/104 H 09/18/24 22:58 Pulse Oximetry 96 09/18/24 22:58 Oxygen Delivery Method Room Air 09/18/24 20:23 MDM - Recheck/Abnormal Lab/Rx Lab Data Labs: Lab Results 09/18/24 09/18/24 09/18/24 Range/Units 17:12 17:26 18:10 PT 11.8 H (9.0-11.6) sec INR 1.13 Sodium 143 (136-145) mmol/L Potassium 5.5 H (3.5-5.1) mmol/L Chloride 108 H (98-107) mmol/L Carbon Dioxide 20.2 L (21.0-32.0) mmol/L Anion Gap 20.3 BUN 124.0 H* (7.0-18.0) mg/dL Creatinine 14.85 H* (0.55-1.02) mg/dL Est GFR ( Amer) 3 L (>=60 mL/min/1.73m^2) Est GFR (Non-Af Amer) 3 L (>=60 mL/min/1.73m^2) BUN/Creatinine Ratio 8.4 Glucose 93 (74-106) mg/dL Calcium 9.2 (8.5-10.1) mg/dL Total Bilirubin 0.4 (0.2-1.0) mg/dL AST 11 L (15-37) U/L ALT 17 (14-59) U/L Alkaline Phosphatase 91 (46-116) U/L Total Protein 7.6 (6.4-8.2) g/dL Albumin 2.5 L (3.4-5.0) g/dL Globulin 5.1 g/dL Albumin/Globulin Ratio 0.5 Urine Color Lt. yellow (YELLOW) Urine Clarity Clear (CLEAR) Urine pH 6.0 (5.0-9.0) Ur Specific [place] 1.010 (1.005-1.025) Urine Protein Negative (NEG/TRACE) mg/dL Urine Glucose (UA) Negative (NEGATIVE) mg/dL Urine Ketones Negative (NEGATIVE) mg/dL Urine Occult Blood Negative (NEGATIVE) Urine Nitrite Negative (NEGATIVE) Urine Bilirubin Negative (NEGATIVE) Urine Urobilinogen 0.2 (0.2-1.0) EU/dL Ur Leukocyte Esterase Negative (NEGATIVE) Imaging Data Chest x-ray: Attestation: I personally reviewed and interpreted this imaging study as follows: My impression: No evidence of any acute cardiopulmonary process. No pneumothorax identified. Central line is in the IVC Discharge Plan Discharge Chief Complaint: Recheck/Abnormal Lab/Rx Clinical Impression: BRANDON (acute kidney injury), Acute uremia, Brain mass Patient Disposition: [facility] Time of Disposition Decision: 20:43 Discharge Location: [facility] Neel Pimentelleslie Discharge location: [facility] ER Condition: Serious Mode of Transportation: Life [facility] Discharge Date/Time: 09/18/24 23:28 Procedures ED Central Line Placement Central Line Placement Right IJ: Time out performed: Yes Patient placed on monitor/pulse ox: Yes MD prep: mask, gown and gloves Central line prep: Chlorhexidine scrub and sterile drapes applied Local anesthesia used: lidocaine 1% Amount of anesthesia used (ml): 5 Ultrasound used for placement: Yes Central line lumen inserted: triple Central line placement: non-tunnelled Post procedure: sutured in place, good blood return, all ports aspirated, flushed, capped and sterile dressing applied Patient tolerated procedure: well and no complications Complications: none
[2024-09-18] MEDS: 0.9 % SODIUM CHLORIDE 1,000 ML 200 ML IV (20:53)
== END 2024-09-18 23:28 | disposition short-term general hospital (02) ==
PROVIDERS: Emergency Provider Emergency Medicine; PCP Nurse Practitioner
DX: G93.9 Disorder of brain, unspecified (principal); N17.9 Acute kidney failure, unspecified; R41.82 Altered mental status, unspecified; R53.1 Weakness; Z87.440 Personal history of urinary (tract) infections
CPT/HCPCS: 36415; 36556; 51702; 70450; 71045; 80048; 80053; 81003; 85025; 85610; 87040; 93005; 99285

== ENCOUNTER 2024-10-17 02:08 | Inpatient (IN) | payer MEDICARE, SELFPAY ==
[2024-10-17] VITALS (156 sets, daily range): BP systolic 63–144; BP diastolic 38–116; PULSE 85–120; RESP 16; TEMP 36.5–37.3; O2SAT 74–100; BMI 43.6; BMI 46.3
--- NOTE | 2024-10-17 02:21 | ECG_ITS ---
[facility] Test Date: 2024-10-17 Pat Name: NITHYA VASQUEZ Department: Room: - Gender: Female Wood Last Maker: : 1970 Requested By: Rogelio Villalobos Order Number: [id number] Reading MD: ARTURO MOY M.D. Measurements Intervals Shattuck Rate: 112 P: 68 MI: 170 QRS: 62 QRSD: 74 T: 23 QT: 328 QTc: 394 Interpretive Statements 1120 Sinus tachycardia 6120 Possible right atrial enlargement 6230 Left atrial enlargement 9150 abnormal ECG Compared to ECG 09/18/2024 17:12:50 Heart rate has increased by 36 BPM Electronically Signed On 10-17-2024 10:43:50 EDT by ARTURO MOY M.D.
--- OUTSIDE RECORDS SUMMARY | 2024-10-17 02:21 | XMS_ITS | CCD ---
Author Organization [facility] Care Team Providers Care Application Support Intern Name Role Phone August REGENERATOR OPERATOR Unavailable Unavailable August REGENERATOR OPERATOR Unavailable Unavailable August REGENERATOR OPERATOR Unavailable Unavailable MarcoPhyliciaJaleesa Unavailable [facility] Primary Care Provider [phone] MD Liyah Rosa Attending Provider [phone] Valdez Acosta MD Primary Care Provider Liyah Rosa Unavailable Valdez Acosta MD Primary Care Provider Valdez Acosta MD Primary Care Provider AICHHOLZ, REGENERATOR OPERATOR FRED Admitting Unavailable AICHHOLZ, REGENERATOR OPERATOR FRED Attending Unavailable AICHHOLZ, REGENERATOR OPERATOR FRED Primary Care Unavailable DORAN ., YAHAIRA Consulting Unavailable TAMLYN ., YAHAIRA Admitting Unavailable TAMLYN ., YAHAIRA Attending Unavailable AICHHOLZ, REGENERATOR OPERATOR FRED Primary Care Unavailable TAMLYN ., YAHAIRA Consulting Unavailable THEA LYNN Consulting Unavailable YASH CALLAHAN Consulting Unavailable AICHHOLZ, REGENERATOR OPERATOR FRED Admitting Unavailable AICHHOLZ, REGENERATOR OPERATOR FRED Attending Unavailable AICHHOLZ, REGENERATOR OPERATOR FRED Primary Care Unavailable AICHHOLZ, REGENERATOR OPERATOR FRED Consulting Unavailable AICHHOLZ, REGENERATOR OPERATOR FRED Admitting Unavailable AICHHOLZ, REGENERATOR OPERATOR FRED Attending Unavailable AICHHOLZ, REGENERATOR OPERATOR FRED Primary Care Unavailable AICHHOLZ, REGENERATOR OPERATOR FRED Consulting Unavailable DR TULIO BULL Admitting Unavailable DR TULIO BULL Attending Unavailable AICHHOLZ, REGENERATOR OPERATOR FRED Primary Care Unavailable DR TULIO BULL Consulting Unavailable Aichholz CONE TRUCKER, Fred Unavailable Myla BENITEZ, Maxim Primary Care Provider Karla BENITEZ, Valdez Primary Care Provider VINCE JESSICA Referring Unavailable PARIS TOLEDO Attending Unavailable DAHBAR, MAZEN Primary Care Unavailable ELIAZAR VAZQUEZ Attending Unavailable DAHBAR, MAZEN Primary Care Unavailable LASHAUN VASQUEZ Attending Unavailable YOUNG, JESSICA Referring Unavailable DAHBAR, MAZEN Primary Care Unavailable YOUNG, JESSICA Referring Unavailable VINCE, JESSICA Attending Unavailable DAHBAR, MAZEN Primary Care Unavailable SARTHAK ESCOBAR Referring Unavailable DAHBAR, MAZEN Primary Care Unavailable August Primary Care Physician Unavailab le NORTHFIELDAugust Primary Care Unavailable Brooks, Eliazar T Referring Unavailable Brooks, Eliazar T Attending Unavailable Brooks, Eliazar T Admitting Unavailable NONE, XXXX Primary Care Physician Unavailab Keli Montanez Unavailable Unavailable Aichholz CONE TRUCKER, Fred Unavailable Myla BENITEZ, Maxim Primary Care Provider [phone] Sarah FIGUEROA, Sherrie Unavailable [phone] John YARDER PUNCHER.REGENERATOR OPERATOR, Elizabeth Lantigua Unavailable SHERRIE BOONE Attending Unavailabl e AICHHOLZ, FRED Attending Unavailable HILLS, YAHAIRA D Referring Unavailable HILLS, YAHAIRA D Attending Unavailable HILLS, YAHAIRA D Referring Unavailable AICHHOLZ, FRED Attending Unavailable AICHHOLZ, FRED Attending Unavailable HILLS, YAHAIRA D Referring Unavailable HILLS, YAHAIRA D Attending Unavailable AICHHOLZ, FRED Attending Unavailable BROOKS, ELIAZAR T Attending Unavailable AICHHOLZ, FRED Attending Unavailable BROOKS, ELIAZAR T Attending Unavailable BROOKS, ELIAZAR T Referring Unavailable AICHHOLZ, FRED Attending Unavailable BROOKS, ELIAZAR T Referring Unavailable BROOKS, ELIAZAR T Attending Unavailable BROOKS, ELIAZAR T Referring Unavailable ARIA KUMAR Attending Unavailable BROOKS, ELIAZAR T Referring Unavailable INDERJIT PELLETIER Attending Unavailable AICHHOLZ, FRED Attending Unavailable INDERJIT PELLETIER Attending Unavailable BROOKS, ELIAZAR T Referring Unavailable BROOKS, ELIAZAR T Attending Unavailable INDERJIT PELLETIER Attending Unavailable BROOKS, ELIAZAR T Referring Unavailable LIYAHINDERJIT Attending Unavailable BROOKS, ELIAZAR T Referring Unavailable HILLS, YAHAIRA D Attending Unavailable BASIL, FRED Attending Unavailable Tripp Gruber MD Attending Provider [phone] Tripp Gruber Attending Unavailable Tripp Gruber Admitting Unavailable AICHHOLLee, FRED Abarca Primary Care Unavailable KENROY PÉREZ Admitting Unavailable ONLY), [facility] (INPATIENT Consult ing Unavailable СЕРГЕЙ LYNCH Attending Unavailable TAHIR, MUNIRA Attending Unavailable TAHIR, MUNIRA Referring Unavailable AICHHOLZ, FRED Tevin Primary Care Unavailable TAHIR, MUNIRA Attending Unavailable TAHIR, MUNIRA Referring Unavailable AICHHOLZ, FRED J Primary Care Unavailable Aichholz YARDER PUNCHER-REGENERATOR OPERATOR, Fred J Primary Care Provider ADONAY CASTILLO Attending Unavailable AICHHOLZ, FRED J Referring Unavailable AICHHOLZ, FRED J Primary Care Unavailable PROVIDER, UNKNOWN Attending Unavailable PROVIDER, UNKNOWN Admitting Unavailable AICHHOLZ, FRED J Referring Unavailable AICHHOLZ, FRED J Primary Care Unavailable AICHHOLZ, FRED J Referring Unavailable AICHHOLZ, FRED J Primary Care Unavailable Aichholz YARDER PUNCHER-REGENERATOR OPERATOR, Fred J Primary Care Provider Aichholz YARDER PUNCHER-REGENERATOR OPERATOR, Fred J Primary Care Provider REGINA MATTHEWS Attending Unavailable Brooks, Eliazar Carbone Admitting Unavailable Brooks, Eliazar Carbone Attending Unavailable Brooks, Eliazar T Referring Unavailable Brooks, Eliazar T Admitting Unavailable Brooks, Eliazar Carbone Attending Unavailable Brooks, Eliazar T Referring Unavailable August Primary Care Unavailable REGINA MATTHEWS Attending Unavailable AICHHOLLee, FRED Abarca Primary Care Unavailable MIRIAM CHURCH Consulting Unavailable SHEILA JUNG Admitting Unavailable JULIO FERNANDEZ Attending Unavailable JAIR ESPINAL Consulting Unavailable [facility], INCDread Consulti ng Unavailable CARDIOLOGY, [facility] Consulting Unavailable SKYE LARA Consulting Unavailab le Allergies Allergy Classification Reported Allergen(s) Allergy Type Date of Onset Reaction(s) Facility (1 source) -No Environmental Allergies Allergy to substance [facility] Work Phone: (2 sources) Acetaminophen / HYDROcodone; Translations: [Vicodin] Drug Allergy [facility] Repository (2 sources) Penicillins; Translations: [penicillins] Propensity to adverse reactions (disorder) [facility] Repository Medications Current Medications Medication Drug Class(es) Dates Sig (Normalized) Sig (Original) acetaminophen 1000 mg oral tablet (20 sources) Start: 06-30-2016 take 1000 mg by mouth every six hours as needed for pain Tylenol 1,000 mg, Oral, q6hr, PRN as needed for pain Start Date: 06/30/16 Status: Ordered take 2 tablets by [facility] every six hours as needed for pain acetaminophen (TYLENOL) 325 mg tablet Take 2 tablets (650 mg total) by mouth every 6 (six) hours as needed for pain. Active End: 08-18-2024 acetaminophen (Tylenol) 500 MG tablet [...] hours as needed for shoulder surgical pain., [employer] #72, 167.7, cm, 02/05/24 11:09:00 EDT, Height/Length Dosing, 131.3, kg, 02/05/24 11:09:00 EDT, Weight Dosing Start Date: 02/06/24 Status: Ordered Start: 02-06-2024 End: 04-15-2024 Percocet 5-325 MG tablet See Instructions, 40 tab(s), Refill(s) 0, Take one to two oral every 4 hours as needed for shoulder surgical pain., [employer] #72, 167.7, cm, 02/05/24 11:09:00 EDT, Height/Length Dosing, 131.3, kg, 02/05/24 11:09:00 EDT, Weight Dosing 02/06/2024 04/15/2024 Discontinued (Therapy completed) [id number] 200 actuat albuterol 0.09 mg/actuat metered dose [...] NEEDED FOR WHEEZING FOR SHORTNESS OF BREATH albuterol 0.833 mg/ml / ipratropium bromide 0.167 mg/ml inhalation solution (1 source) Anticholinergic, beta2-Adrenergic Agonist Start: 025 take 3 mL by inhalation every six hours as needed for wheezing and dyspnea amitriptyline hydrochloride 25 mg oral tablet (20 sources) Tricyclic Antidepressant Start: 022 take 25 mg by mouth at bedtime [...] 07/06/2023 Active ARIPiprazole 10 mg oral tablet (13 sources) Atypical Antipsychotic Start: 07-07-2024 End: 08-06-2024 [...] chew. 20 capsule 0 06/26/2023 07/03/2023 Active bisacodyl 10 mg rectal suppository (1 source) Stimulant Laxative Start: 09-19-2024 brompheniramine maleate 0.4 mg/ml / dextromethorphan hydrobromide 2 mg/ml / pseudoephedrine hydrochloride 6 mg/ml oral solution (1 source) alpha-Adrenergic Agonist, Uncompetitive N-tfefwq-X-aspartat e Receptor Antagonist, Sigma-1 Agonist Start: 04-15-2024 [...] Ordered busPIRone hydrochloride 7.5 mg oral tablet (19 sources) Start: 08-18-2024 End: 09-29-2024 take 1 tablet by mouth every eight hours busPIRone (Buspar) 7.5 MG tablet Indications: Generalized anxiety disorder with panic attacks (CMS/HCC) Take 1 tablet (7.5 mg) by mouth every 8 (eight) hours if needed (anxiety) 90 tablet 08/18/2024 Active Start: 07-07-2024 End: 08-18-2024 take 1 [...] before bedtime. 60 tablet 1 05/18/2024 Active 100 ml calcium gluconate 20 mg/ml injection (1 source) Start: 09-19-2024 cetirizine hydrochloride 10 mg oral tablet (12 sources) Histamine-1 Receptor Antagonist Start: 06-17-2024 End: 09-15-2024 take 1 tablet by mouth once daily cetirizine (ZyrTEC) 10 MG tablet Indications: Acute non-recurrent frontal sinusitis Take 1 tablet (10 mg) by mouth Daily 30 tablet 2 06/17/2024 Active cholecalciferol 0.025 mg oral capsule (20 sources) Vitamin D Cholecalciferol, Vitamin D3, (VITAMIN D) 25 mcg (1,000 unit) cap Take 1,000 Units by mouth once daily. Active End: 03-16-2022 take 1 capsule by mouth once daily Cholecalciferol, Vitamin D3, 1,000 unit cap Take 1,000 Units by mouth once daily. 0 03/16/2022 Discontinued Comment on above: Take 1,000 Units by mouth once daily. dexamethasone 2 mg oral tablet (4 sources) Corticosteroid Start: 09-29-19 End: 10-09-19 take 2 tablets by mouth three times daily, then take 1.5 tablets by mouth three times daily, then take 1.5 tablets by mouth twice daily, then take 1 tablet by mouth twice daily dexAMETHasone (DECADRON) 2 mg tablet Take 2 tablets (4 mg total) by mouth 3 (three) times a day for 1 day, THEN 1.5 tablets (3 mg total) 3 (three) times a day for 3 days, THEN 1.5 tablets (3 mg total) 2 (two) times a day for 3 days, THEN 1 tablet (2 mg total) 2 (two) times a day for 3 days. 09/28/2024 10/08/2024 Active Start: 09-19-2024 End: 09-26-2024 dimethyl fumarate 240 mg delayed release oral capsule (1 source) Start: 06-30-2016 take 240 mg by mouth twice daily Tecfidera 240 mg, Oral, BID Start Date: 06/30/16 Status: Ordered docusate sodium 50 mg / sennosides, skilled nursing 8.6 mg oral tablet (5 sources) Start: 09-28-2024 take 2 tablets by mouth once daily sennosides-docusate sodium (SENOKOT-S) 8.6-50 mg Take 2 tablets by mouth nightly. 09/28/2024 Active Start: 09-19-2024 End: 09-24-2024 doxycycline hyclate 100 mg oral capsule (2 sources) Tetracycline-class Drug Start: 06-17-2024 End: 06-24-2024 doxycycline (Vibramycin) 100 MG capsule Indications: Acute non-recurrent frontal sinusitis Take 1 capsule (100 mg) by mouth in the morning and 1 capsule (100 mg) before bedtime. Do all this for 7 days. Take with at least 8 ounces (large glass) of water, do not lie down for 30 minutes after. 14 capsule 06/17/2024 06/24/2024 Active 0.4 ml enoxaparin sodium 100 mg/ml prefilled syringe (1 source) Low Molecular Weight Heparin Start: 09-26-2024 escitalopram 10 mg oral tablet (20 sources) Serotonin Reuptake Inhibitor Start: 07-07-2024 End: 08-06-2024 take 1 tablet [...] 90 tablet 1 06/05/2023 Active Estrogens, Conjugated (FCI) / medroxyPROGESTERone (1 source) Progestin, Estrogen Start: [...] g 2 06/17/2024 08/18/2024 Discontinued (Therapy completed) glucagon (rdna) 1 mg injection (1 source) Antihypoglycemic Agent Start: 09-19-2024 50 ml glucose 500 mg/ml prefilled syringe (2 sources) Start: 09-19-2024 Start: 09-19-2024 1 ml hydrALAZINE hydrochloride 20 mg/ml injection (1 source) Arteriolar Vasodilator Start: 09-19-2024 take 10 mg intravenously every six hours as needed iv contrast (will be provided with radiology [...] in the MR contrast administration guidelines link. 4 ml labetalol hydrochloride 5 mg/ml cartridge (2 sources) beta-Adrenergic Jose Start: End: levETIRAcetam 500 mg oral tablet (5 sources) Start: take 1 tablet by mouth in the morning, then take 1 tablet by mouth at bedtime levETIRAcetam (KEPPRA) 500 mg tablet Take 1 tablet (500 mg total) by mouth in the morning and 1 tablet (500 mg total) before bedtime. 09/28/2024 Active Start: 09-27-2024 Start: 09-19-2024 End: 09-27-2024 take 500 mg intravenously every twelve hours 50 ml magnesium sulfate 40 m g/ml injection (2 sources) Start: 09-19-2024 Start: 09-19-2024 metoprolol tartrate 25 mg oral tablet (8 sources) beta-Adrenergic Jose Start: 09-28-2024 take 1 tablet by mouth in the morning, then take 1 tablet by mouth at bedtime metoprolol tartrate (LOPRESSOR) 25 mg tablet Take 1 tablet (25 mg total) by mouth in the morning and 1 tablet (25 mg total) before bedtime. 09/28/2024 Active Start: 09-22-2024 End: 09-24-2024 Start: 09-21-2024 End: 09-22-2024 Start: 09-01-2024 End: 09-29-2024 Start: 09-01-2024 End: 10-01-2024 take 0.5 tablet by mouth in the morning, then take 0.5 tablet by mouth at bedtime metoprolol tartrate (LOPRESSOR) 25 mg tablet Take 0.5 tablets (12.5 mg total) by mouth in the morning and 0.5 tablets (12.5 mg total) before bedtime. Do all this for 30 days. 09/01/2024 10/01/2024 Active mirtazapine 15 mg disintegra ting oral tablet (12 sources) Start: 09-24-2024 Start: 09-21-2024 End: 09-24-2024 Start: 08-18-2024 End: 09-17-2024 take 1 tablet by mouth at bedtime mirtazapine (Remeron) 15 MG tablet Indications: Generalized anxiety disorder with panic attacks (CMS/HCC) , Major depressive disorder, recurrent, moderate (CMS/HCC) , Primary insomnia Take 1 tablet (15 mg) by mouth at bedtime 30 tablet 1 08/18/2024 Active multivitamin tablet (20 sources) take 1 tablet by katharina th once daily multivitamin tablet Take 1 tablet [...] Status: Ordered nystatin 100 unt/mg topical powder (12 sources) Polyene Antifungal Start: 08-23-2024 End: 08-23-2025 nystatin (Mycostatin) 646317 UNIT/GM powder Indications: Yeast dermatitis Apply topically 2 (two) times a day 60 g 1 08/23/2024 08/23/2025 Active Start: 03-05-2024 End: 03-20-2024 nystatin (Mycostatin) 179898 UNIT/GM powder Indications: Candidiasis of skin Apply topically 2 (two) times a day for 15 days Apply to affected areas 60 g 1 03/05/2024 03/20/2024 Active End: 03-05-2024 nystatin (Mycostatin) 250021 UNIT/GM powder Apply topically 2 (two) times [...] chloride 5 mg extended release oral tablet (12 sources) Cholinergic Muscarinic Antagonist Start: 5 End: 5 take 1 tablet by mouth once daily oxybutynin XL (Ditropan-XL) 5 MG 24 hr tablet Indications: Mixed stress and urge urinary incontinence Take 1 tablet (5 mg) by mouth Daily Do not crush, chew, or split. 30 tablet 1 08/23/2024 09/22/2024 Active Start: 03-07-2022 End: 07-10-2023 oxybutynin XL (DITROPAN XL) 5 mg 24 hr tablet polyethylene glycol 3350 21037 mg powder for oral solution (1 source) Osmotic Laxative Start: 09-19-2024 predniSONE 20 mg oral tablet (2 sources) [...] Start: 06-14-2018 End: 06-14-2018 TRAZODONE 50 mg [facility] [place] 019 - 06/14/2018 Provider: Start: 05-30-2017 End: 05-30-2017 TRAZODONE 50 mg [facility] [place] 018 - 05/30/2017 Provider: vitamin B12 (12 sources) Vitamin B12 Start: 02-05-2024 take 2500 ug under the tongue once daily Vitamin B12 2,500 mcg, SubLingual, Daily, Refills(s) 0, Prophylaxis Start Date: 02/05/24 Status: Ordered take 1 tablet by mouth once dot y cyanocobalamin (VITAMIN B-12) 1,000 mcg tab Take 1,000 mcg by mouth once daily. Active Comment on above: Take 1,000 mcg by [facility] once daily. Vitamin D (2 sources) Start: 06-30-2016 Vitamin D 1,200 International_Unit, Oral, Daily, Prophylaxis Start Date: 06/30/16 Status: Ordered Start: 06-30-2016 Vitamin D 1,20 0 International_Unit, Oral, Daily Start Date: 06/30/16 Status: Ordered (8 sources) Start: 09-28-2024 Start: 09-28-2024 End: 09-28-2024 Start: 09-28-2024 Start: 09-28-2024 Start: 09-28-2024 End: 09-28-2024 Start: 09-24-2024 End: 09-24-2024 Start: 09-24-2024 End: 09-24-2024 Start: 09-24-2024 End: 09-24-2024 (8 sources) Start: 09-26-2024 End: 09-29-2024 [Order 1 Start] Name: dexAME THasone (DECADRON) tablet 4 mg Signed Summary: 4 mg, oral, 3 times daily, First dose on 09/26/24 at 1500, For 3 days, Food-Drug Interaction Education Required May alter blood glucose or insulin requirements Take/give with food Look-alike/sound-alike medication - verify indication for use. [Order 1 End] [Order 2 Start] Name: dexAMETHasone (DECADRON) tablet 3 mg Signed Summary: 3 mg, oral, 3 times daily, First dose on Sat09/29/24 at 1400, For 3 days, Food-Drug Interaction Education Required May alter blood glucose or insulin requirements Take/give with food Look-alike/sound-alike medication - verify indication for use. [Order 2 End] [Order 3 Start] Name: dexAMETHasone (DECADRON) tablet 3 mg Signed Summary: 3 mg, oral, 2 times daily, First dose on Sat10/02/24 at 1400, For 3 days, Food-Drug Interaction Education Required May alter blood glucose or insulin requirements Take/give with food Look-alike/sound-alike medication - verify indication for use. [Order 3 End] [Order 4 Start] Name: dexAMETHasone (DECADRON) tablet 2 mg Signed Summary: 2 mg, oral, 2 times daily, First dose on Sat10/05/24 at 0900, Food-Drug Interaction Education Required May alter blood glucose or insulin requirements Take/give with food Look-alike/sound-alike medication - verify indication for use. [Order 4 End] Start: 09-22-2024 End: 09-22-2024 Start: 09-19-2024 take 650 mg by mouth every six hours as needed for pain and headache and fever [Order 1 Start] Name: acetaminophen (TYLENOL) tablet 650 mg Signed Summary: 650 mg, oral, Every 6 hours PRN, mild pain - pain scale 1-3, headaches, temperature greater than 38 C, Starting on 09/19/24 at 0413 [Order 1 End] [Order 2 Start] Name: acetaminophen (TYLENOL) 650 mg/20.3 mL solution 650 mg Signed Summary: 650 mg, nasogastric, Every 6 hours PRN, mild pain - pain scale 1-3, headaches, temperature greater than 38 C, Starting on 09/19/24 at 0413 [Order 2 End] Start: 09-19-2024 Start: 09-19-2024 [Order 1 Start ] Name: sodium phosphate 20 mmol in sodium chloride 0.9 % 250 mL IVPB Signed Summary: 20 mmol, intravenous, at 42.8 mL/hr, Administer over 6 Hours, As needed, for phosphorus level 2.3 mg/dL or less, Starting on 09/19/24 at 0258, Administer over 6 hours via dedicated line (peripheral line). If administered, recheck phosphorus level 4 hours after infusion complete. [Order 1 End] [Order 2 Start] Name: sodium phosphate 20 mmol in sodium chloride 0.9 % 100 mL IVPB Signed Summary: 20 mmol, intravenous, at 26.7 mL/hr, Administer over 4 Hours, As needed, for phosphorus level 2.3 mg/dL or less.Do not administer if potassium is more than 4.5, Starting on 09/19/24 at 0258, Administer over 4 hours via dedicated line (central line). If administered, recheck phosphorus level 4 hours after infusion complete. Infuse using central line access. [Order 2 End] [Order 3 Start] Name: sod phos di, mono-K phos mono (K-PHOS NEUTRAL) 250 mg tablet 2 tablet Signed Summary: 2 tablet, oral, As needed, for phosphorus level 2.3 mg/dL or less., Starting on 09/19/24 at 0258, If dose administered, recheck phosphorus level 4 hours after last dose. Look-alike/sound-alike medication - verify indication for use. Give with a full glass of water. [Order 3 End] Start: 09-19-2024 Start: 09-19-2024 Start: 09-19-2024 [Order 1 Start ] Name: potassium chloride (K-TAB,KLOR-CON) CR tablet 20-60 mEq Signed Summary: 20-60 mEq, oral, As needed, Potassium Supplementation, Starting on 09/19/24 at 0258, Progress to oral potassium replacement when patient tolerating oral intake. If dose administered, recheck potassium level 4 hours after last dose. For potassium level 3.4 to 3.7 mmol/L =20 mEq. For potassium level 3.1 to 3.3 mmol/L =40 mEq. For potassium level 3 mmol/L or less =60 mEq. Do not crush or chew. [Order 1 End] [Order 2 Start] Name: potassium chloride (KAYCIEL) 20 mEq/15 mL solution 20-60 mEq Signed Summary: 20-60 mEq, oral, As needed, Potassium Supplementation, Starting on 09/19/24 at 0258, Progress to oral potassium replacement when patient tolerating oral intake. If dose administered, recheck potassium level 4 hours after last dose. For potassium level 3.4 to 3.7 mmol/L =20 mEq. For potassium level 3.1 to 3.3 mmol/L =40 mEq. For potassium level 3 mmol/L or less =60 mEq. Must dilute before use - Mix in 3-8 ounces of water or juice before administration When administering in feeding tube, flush before and after per policy and monitor potassium levels [Order 2 End] [Order 3 Start] Name: potassium chloride IVPB 10 mEq/100 mL in water (0.1 mEq/mL premix) Signed Summary: 10 mEq, intravenous, at 100 mL/hr, Administer over 60 Minutes, As needed, POTASSIUM REPLACEMENT, Starting on 09/19/24 at 0258, IV if unable to use oral/enteral with the current dosing strategies For potassium level 3.4 to 3.7 mmol/L =20 mEq. For potassium level 3.1 to 3.3 mmol/L =40 mEq. For potassium level 3 mmol/L or less =60 mEq. Use central line when applicable. Recheck potassium level 1 hour after total IVPB infusion complete With each potassium result continue the replacement orders as needed VESICANT (YELLOW) Infuse each 10 mEq over a minimum of 1 hour. [Order 3 End] (1 source) Start: 09-23-2024 Completed/Discontinued Medications Medication Drug Class(es) Dates Sig [...] th once daily. Take 1 tablet by [facility] once daily betamethasone 3 mg/ml / betamethasone acetate 3 mg/ml injectable suspension (4 sources) Corticosteroid Start: 04-27-2024 End: 04-27-2024 betamethasone acetate-betamethasone sodium phosphate (Celestone) injection 12 mg Start: 04-27-2024 End: 04-27-2024 12 mg, Intra-articular, Once PRN Procedure, Starting on Sat04/27/24 at 0943, For 1 dose 50 ml clevidipine 0.5 mg/ml injection (1 source) Dihydropyridine Calcium Channel Jose Start: 09-23-2024 End: 09-23-2024 cyclobenzaprine (3 sources) Muscle Relaxant Start: 06-14-2018 End: 06-14-2018 CYCLOBENZAPRINE 10 MG MISC 06/14/2018 - 06/14/2018 Provider: Start: 05-30-2017 End: 05-30-2017 CYCLOBENZAPRINE 10 MG MISC 0 05/30/2017 - 05/30/2017 Provider: Start: 06-30-2016 take 2 tablets by [facility] twice daily as needed for muscle spasms [...] Take 30 mg by mouth once daily. 2 ml famotidine 10 mg/ml injection (1 source) Histamine-2 Receptor Antagonist Start: 5 End: 5 1 ml heparin sodium, porcine 5000 unt/ml injection (1 source) Unfractionated Heparin, Anti-coagulant Start: 5 End: 5 lisinopril 10 mg oral tablet (20 sources) Angiotensin Converting Enzyme Inhibitor Start: 1 End: 4 take 1 tablet by mouth [...] Take by mouth 08/18/2024 Discontinued (Therapy completed) 50 ml sodium bicarbonate 84 mg/ml prefilled syringe (1 source) Start: 09-19-2024 End: 09-19-2024 1000 ml sodium chloride 9 mg /ml injection (2 sources) Start: 09-23-2024 End: 09-26-2024 Start: 09-19-2024 End: 09-20-2024 teriflunomide 14 mg oral tablet (1 source) Pyrimidine Synthesis Inhibitor Start: 06-14-2018 End: 06-14-2018 Aubagio 14 MG OR TABS 06/14/2018 - 06/14/2018 Provider: Conversion Provider (4 sources) Start: 09-22-2024 End: 09-22-2024 Start: 09-21-2024 End: 09-21-2024 Start: 09-20-2024 End: 09-20-2024 Start: 09-19-2024 End: 09-19-2024 (1 source) Start: 09-20-2024 End: 09-20-2024 Problems Active Problems Problem Classification Problem Date Documented Da te Episodic/Chronic Acute and unspecified renal failure (2 sources) Acute renal failure syndrome; Translations: [Acute kidney failure, unspecified] Onset: 09-18-2024 09-19-2024 Episodic Acute cerebrovascular disease (20 sources) Cerebrovascular accident; Translations: [Cerebral infarction, unspecified] Onset: 07-30-2023 07-30-2023 Chronic Adjustment disorders (20 sources) Adjustment disorder with mixed anxiety and depressed mood; Translations: [Adjustment disorder with mixed anxiety and depressed mood] Onset: 10-02-2012 10-02-2012 Chronic Administrative/social admission (3 sources) Finding of activity of daily living; Translations: [Limitation of activities due to disability] Onset: 09-03-2024 09-16-2024 Episodic Allergic reactions (2 sources) Irritant contact dermatitis; Translations: [Other specified dermatitis] Onset: 09-16-2024 09-16-2024 Episodic Anal and rectal conditions (5 sources) Rectal pain; Translations: [Other specified diseases of anus and rectum] Onset: 08-14-2021 Resolved: 08-14-2021 Episodic Anxiety disorders (20 sources) Mixed anxiety and depressive disorder; Translations: [Anxiety disorder, unspecified] Onset: 04-30-2023 Resolved: 05-18-2024 04-30-2023 Chronic Cardiac dysrhythmias (2 sources) Cardiac arrhythmia, unspecified; Translations: [Cardiac arrhythmia, unspecified] Onset: 08-28-2024 Chronic Chronic obstructive pulmonary disease and bronchiectasis (20 sources) Chronic bronchitis; Translations: [Unspecified chronic bronchitis] Onset: 04-30-2023 Resolved: 07-01-2024 04-30-2023 Chronic Chronic ulcer of skin (2 sources) Pressure ulcer of left buttock, stage 2; Translations: [Pressure ulcer, buttock] Onset: 09-16-2024 09-16-2024 Chronic Disorders of lipid metabolism (20 sources) Hyperlipidemia, unspecified; Translations: [Hyperlipoproteinemia ] Onset: 09-27-2022 07-30-2023 Chronic Diverticulosis and diverticulitis (20 sources) Diverticular disease of colon; Translations: [Diverticulosis of intestine, part unspecified, without perforation or abscess without bleeding] Onset: 12-13-2021 Resolved: 12-13-2021 Chronic E Codes: Fall (1 source) Fall Onset: 08-28-2024 Essential hypertension (20 sources) Essential (primary) hypertension; Translations: [Essential hypertension] Onset: 09-27-2022 04-30-2023 Chronic Gastrointestinal hemorrhage (5 sources) Rectal hemorrhage; Translations: [Hemorrhage of anus and rectum] Onset: 08-14-2021 Resolved: 08-14-2021 Episodic Genitourinary symptoms and ill-defined conditions (20 sources) Incontinence; Translations: [Unspecified urinary incontinence] Onset: 10-10-2023 10-10-2023 Chronic Hemorrhoids (3 sources) Hemorrhoids; Translations: [Unspecified hemorrhoids] Onset: 12-13-2021 Resolved: 12-13-2021 Episodic Joint disorders and dislocations; trauma-related (3 sources) Traumatic rupture of lumbar intervertebral disc; Translations: [Traumatic rupture of lumbar intervertebral disc, initial encounter] Onset: 09-01-2024 09-16-2024 Episodic Malaise and fatigue (4 sources) Weakness; Translations: [Asthenia] Onset: 08-28-2024 08-28-2024 Episodic Miscellaneous mental health disorders (20 sources) [...] D deficiency, unspecified] Onset: 01-06-2024 11-27-2023 Chronic Nutritional deficiencies (3 sources) Nutritional deficiency state; Translations: [Nutritional deficiency, unspecified] Onset: 09-03-2024 09-16-2024 Episodic Osteoarthritis (20 sources) Osteoarthritis of knee; Translations: [...] capsulitis of left shoulder] 04-27-2024 Episodic Other connective tissue disease (1 source) Rhabdomyolysis; Translations: [Rhabdomyolysis] Onset: 08-28-2024 Episodic Other connective tissue disease (3 sources) Non-traumatic rhabdomyolysis; Translations: [Rhabdomyolysis] Onset: 08-28-2024 08-28-2024 Episodic Other connective tissue disease (3 sources) Muscle weakness; Translations: [Muscle weakness (generalized)] Onset: 09-02-2024 09-16-2024 Episodic Other connective tissue disease (3 sources) Rhabdomyolysis; Translations: [Rhabdomyolysis] Onset: 09-01-2024 09-16-2024 Episodic Other gastrointestinal disorders (4 sources) Constipation; Translations: [Constipation, unspecified] Episodic Other gastrointestinal disorders (4 sources) Change in stool caliber; Translations: [Change in bowel habit] Episodic Other gastrointestinal disorders (2 sources) Change in bowel habit Onset: 08-14-2021 Resolved: 08-14-2021 Episodic Other gastrointestinal disorders (3 sources) Altered bowel function; Translations: [Other specified symptoms and signs involving the digestive system and abdomen] Episodic Other gastrointestinal disorders (4 sources) Oropharyngeal dysphagia; Translations: [Dysphagia, oropharyngeal phase] Onset: 09-01-2024 09-16-2024 Episodic Other nervous system disorders (20 sources) Carpal tunnel syndrome; Translations: [Carpal tunnel syndrome, unspecified upper limb] Onset: 05-20-2002 07-30-2023 Chronic Other nervous system disorders (20 sources) 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; Translations: [Lesion of ulnar nerve, bilateral upper limbs] Onset: 01-23-2024 01-23-2024 Chronic Other nervous system disorders (3 sources) Cognitive deficit in communication skills; Translations: [Cognitive communication deficit] Onset: 09-01-2024 09-16-2024 Chronic Other nervous system disorders (3 sources) Difficulty walking; Translations: [Difficulty in walking, not elsewhere classified] Onset: 09-02-2024 09-16-2024 Chronic Other nervous system disorders (1 source) Mass lesion of brain; Translations: [Other specified disorders of brain] 09-19-2024 Chronic Other nervous system disorders (1 source) Other specified disorders of brain; Translations: [Other specified disorders of brain] Onset: 09-18-2024 Chronic Other non-traumatic joint disorders (1 source) [...] Chronic Other nutritional; endocrine; and metabolic disorders (10 sources) Body mass index 40+ - severely obese; Translations: [Body mass index (BMI) 45.0-49.9, adult] Onset: 06-25-2024 06-25-2024 Chronic Other nutritional; endocrine; and metabolic disorders (12 sources) Obesity caused by energy imbalance; Translations: [Morbid (severe) obesity due to excess calories] Onset: 06-25-2024 06-25-2024 Chronic Residual codes; unclassified (20 sources) Obstructive sleep apnea syndrome; Translations: [Obstructive sleep apnea (adult) (pediatric)] Onset: 07-30-2023 07-30-2023 Chronic Residual codes; unclassified (13 sources) History of arthroscopic procedure on shoulder; Translations: [Other specified postprocedural states] 02-24-2024 Episodic Residual codes; unclassified (1 source) Pain, unspecified; Translations: [Pain, unspecified] Onset: 09-19-2024 Episodic Residual codes; unclassified (6 sources) Altered mental status; Translations: [Altered mental status, unspecified] Onset: 09-18-2024 09-29-2024 Episodic Residual codes; unclassified (2 sources) History of craniotomy; Translations: [Other specified postprocedural states] 09-29-2024 Episodic Residual codes; unclassified (1 source) Altered mental status, unspecified; Translations: [Altered mental status, unspecified] Onset: 09-19-2024 Episodic Residual codes; unclassified (1 source) Other specified postprocedural states; Translations: [Other specified postprocedural states] Onset: 09-18-2024 Episodic Substance-related disorders (3 sources) Nicotine dependence, [...] that is what happened -- august 2020 Unclassified (1 source) Weakness - Generalized Onset: 08-28-2024 Unclassified (1 source) EMS Onset: 08-28-2024 Unclassified (1 source) Wound Check Onset: 09-16-2024 Unclassified (1 source) Evaluation of Abnormal Diagnostic Test Onset: 09-18-2024 Unclassified (1 source) 52 female Onset: 09-18-2024 Past or Other Problems Problem Classification Problem [...] Test Name Value Interpretation Reference Range Facility Ambulatory Visit Summaryon 0 10-09-2024 Ambulatory Visit Summary Ambulatory Visi t Summary ANUPAMA VASQUEZ :1970 Visit Date:10/09/2024 Ambulatory Visit Instructions Your Diagnosis Urinary retention Your Care Team Attending Physician - REGINA MATTHEWS PA-C Primary Care Physician - SARY COLIN MD This Is Your Medications List acetaminophen (Tylenol) acetaminophen-oxycodo ne (Percocet 5 mg-325 mg oral tablet) busPIRone (busPIRone 7.5 mg oral tablet) busPIRone (busPIRone 7.5 mg oral tablet) dexamethasone (dexamethasone 1.5 mg oral tablet) dexamethasone (dexamethasone 2 mg oral tablet) dexamethasone (dexamethasone 4 mg Tab) levetiracetam (levetiracetam 500 mg Tab) metoprolol (Metoprolol tartrate 25 mg Tab) mirtazapine (mirtazapine 15 mg Tab) polycarbophil (Fiber Tabs) senna (senna (sennosides) 3 mg oral tablet, chewable) trazodone (traZODONE 50 mg Tab) Procedures Performed Arthroscopy of shoulder (02/10/2024), Carpal tunnel, Ectopic . Discharge Vitals Temperature (Oral) 36.7 ???C Heart Rate (Peripheral) 76 Respiratory Rate 16 Blood Pressure 112/68 Height 169 cm Height 67 in Weight 117 kg Weight 257.941 lb BMI 40.96 Medications What How Much When Why Instructions Unchanged acetaminophen (Tylenol) 1,000 Milligram By Mouth Every 6 hours as needed for as needed for pain Unchanged acetaminophen-oxycodo ne (Percocet 5 mg-325 mg oral tablet) See instructions Impingement of left shoulder Take one to two oral every 4 hours as needed for shoulder surgical pain. Unchanged busPIRone (busPIRone 7.5 mg oral tablet) 1 Tablets By Mouth 3 times a day Unchanged busPIRone (busPIRone 7.5 mg oral tablet) 1 Tablets Unchanged dexamethasone (dexamethasone 1.5 mg oral tablet) By Mouth 2 times a day Unchanged dexamethasone (dexamethasone 2 mg oral tablet) By Mouth 2 times a day Unchanged dexamethasone (dexamethasone 4 mg Tab) By Mouth 2 times a day Unchanged levetiracetam (levetiracetam 500 mg Tab) 1 Tablets By Mouth 2 times a day Unchanged metoprolol (Metoprolol tartrate 25 mg Tab) 1 Tablets By Mouth 2 times a day Unchanged mirtazapine (mirtazapine 15 mg Tab) 1 Tablets Unchanged polycarbophil (Fiber Tabs) By Mouth 4 times a day Unchanged senna (senna (sennosides) 3 mg oral tablet, chewable) Chewed Every day Unchanged trazodone (traZODONE 50 mg Tab) 0.5 Tablets By Mouth Once a day (at bedtime) Allergies No Known Allergies Problems Ongoing - Any problem that you are currently receiving treatment for. Menopause Mini stroke Morbid obesity with BMI of 40.0-44.9, adult MS - Multiple sclerosis Smoker Patient Survey You may receive a survey via text or e-mail asking about your office visit. Please share your experience with us by completing your survey. We appreciate your feedback and thank you for choosing us for your care. Normal [facility] BASIC METABOLIC PANELon 05-1 Anion gap [Moles/Vol] 11 mmol/L Normal 5-15 [facility] Comment on above: Performed By: #### P INR #### [facility] ([facility]) [address] [place] [address] VIR Calcium [Mass/Vol] 8.8 mg/dL Normal 8.5-10.5 [facility] Comment on above: Performed By: #### P INR #### [facility] ([facility]) [address] [place] [address] VIR Chloride [Moles/Vol] 106 mmol/L Normal 98-109 [facility] Comment on above: Performed By: #### P INR #### [facility] ([facility]) [address] [place] [address] VIR CO2 [Moles/Vol] 23 mmol/L Normal 22-32 [facility] Comment on above: Performed By: #### P INR #### [facility] ([facility]) [address] [place] [address] VIR Creatinine [Mass/Vol] 0.74 mg/dL Normal 0.40-1.00 [facility] Comment on above: Result Comment: METH OD TRACEABLE TO IDMS STANDARD Performed By: #### P INR #### [facility] ([facility]) [address] [place] [address] VIR EGFR (CKD-EPI) NON-RACE DEPENDENT >^90 Normal >=60 [facility] Comment on above: Result Comment: Repo rted eGFR is based on the CKD-EPI 2020 equation that does not use a race coefficient. Performed By: #### P INR #### [facility] ([facility]) [address] [place] [address] VIR Glucose [Mass/Vol] 94 mg/dL Normal 65-99 [facility] Comment on above: Performed By: #### P INR #### [facility] ([facility]) [address] [place] [address] VIR Potassium [Moles/Vol] 4.4 mmol/L Normal 3.5-5.0 [facility] Comment on above: Performed By: #### P INR #### [facility] ([facility]) [address] [place] [address] VIR Sodium [Moles/Vol] 140 mmol/L Normal 134-146 [facility] Comment on above: Performed By: #### P INR #### [facility] ([facility]) [address] [place] [address] VIR Urea nitrogen [Mass/Vol] 26 mg/dL High 5-23 [facility] Comment on above: Performed By: #### P INR #### [facility] ([facility]) [address] [place] [address] VIR Basic Metabolic Panelon 09-17 Anion gap [Moles/Vol] 11 mmol/L 5 - 15 mmol/L [facility] Calcium [Mass/Vol] 8.8 mg/dL 8.5 - 10. 5 mg/dL [facility] Chloride [Moles/Vol] 106 mmol/L 98 - 10 9 mmol/L [facility] CO2 [Moles/Vol] 23 mmol/L 22 - 32 mmol/L [facility] Creatinine [Mass/Vol] 0.74 mg/dL 0.40 - 1.00 mg/dL [facility] EGFR Non-Race Dependent - PINF P [facility] Glucose [Mass/Vol] 94 mg/dL 65 - 99 mg/dL [facility] Interpretation and review of laboratory results Abnormal [facility] Potassium [Moles/Vol] 4.4 mmol/L 3.5 - 5.0 mmol/L [facility] Sodium [Moles/Vol] 140 mmol/L 134 - 146 mmol/L [facility] Urea nitrogen [Mass/Vol] 26 mg/dL High 5 - 23 mg/dL [facility] CBC WITH AUTO DIFFERENTIALon 09-28-2024 BASOPHILS ABSOLUTE COUNT (10*3/UL) BY AUTOMATED COUNT 0.0 10*3/uL Normal 0.0-0.2 [facility] Comment on above: Result Comment: This is an appended report. These results have been appended to a previously preliminary verified report. Performed By: #### P INR #### [facility] ([facility]) [address] [place] [address] VIR BASOPHILS RELATIVE PERCENT BY AUTOMATED COUNT 0.1 % Normal [facility] Comment on above: Result Comment: This is an appended report. These results have been appended to a previously preliminary verified report. Performed By: #### P INR #### [facility] ([facility]) [address] [place] [address] VIR CELLAVISION DIFFERENTIAL TYPE AUTOMATED DIFFERENTIAL Normal [facility] Comment on above: Result Comment: This is an appended report. These results have been appended to a previously preliminary verified report. Performed By: #### P INR #### [facility] ([facility]) [address] [place] [address] VIR Eosinophils (Bld) [#/Vol] 0.0 10*3/uL Normal 0.0-0.4 [facility] Comment on above: Result Comment: This is an appended report. These results have been appended to a previously preliminary verified report. Performed By: #### P INR #### [facility] ([facility]) [address] [place] [address] VIR EOSINOPHILS RELATIVE PERCENT BY AUTOMATED COUNT 0.1 % Normal [facility] Comment on above: Result Comment: This is an appended report. These results have been appended to a previously preliminary verified report. Performed By: #### P INR #### [facility] ([facility]) [address] [place] [address] VIR Erythrocyte distribution width (RBC) [Ratio] 16.4 % High 11.5-15 [facility] Comment on above: Performed By: #### P INR #### [facility] ([facility]) [address] [place] [address] VIR Hematocrit (Bld) [Volume fraction] 35.5 % Normal 35-47 [facility] Comment on above: Performed By: #### P INR #### [facility] ([facility]) [address] [address] VIR Hemoglobin (Bld) [Mass/Vol] 11.5 g/dL Low 11.7-15.5 [facility] Comment on above: Performed By: #### P INR #### [facility] ([facility]) [address] [address] VIR LYMPHOCYTES ABSOLUTE COUNT (10*3/UL) BY AUTOMATED COUNT 1.3 10*3/uL Normal 1.0-3.5 [facility] Comment on above: Result Comment: This is an appended report. These results have been appended to a previously preliminary verified report. Performed By: #### P INR #### [facility] ([facility]) [address] [address] VIR LYMPHOCYTES RELATIVE PERCENT BY AUTOMATED COUNT 8.3 % Normal [facility] Comment on above: Result Comment: This is an appended report. These results have been appended to a previously preliminary verified report. Performed By: #### P INR #### [facility] ([facility]) [address] [address] VIR MCH (RBC) [Entitic mass] 27.0 pg Normal 27-34 [facility] Comment on above: Performed By: #### P INR #### [facility] ([facility]) [address] [address] VIR MCHC (RBC) [Mass/Vol] 32.5 g/dL Normal 32-36 [facility] Comment on above: Performed By: #### P INR #### [facility] ([facility]) [address] [place] [address] VIR MCV (RBC) [Entitic vol] 83 fL Normal 80-100 [facility] Comment on above: Performed By: #### P INR #### [facility] ([facility]) [address] [place] [address] VIR MONOCYTES ABSOLUTE COUNT (10*3/UL) BY AUTOMATED COUNT 1.8 10*3/uL High 0.0-0.9 [facility] Comment on above: Result Comment: This is an appended report. These results have been appended to a previously preliminary verified report. Performed By: #### P INR #### [facility] ([facility]) [address] [place] [address] VIR MONOCYTES RELATIVE PERCENT BY AUTOMATED COUNT 11.3 % Normal [facility] Comment on above: Result Comment: This is an appended report. These results have been appended to a previously preliminary verified report. Performed By: #### P INR #### [facility] ([facility]) [address] [place] [address] VIR NEUTROPHILS ABSOLUTE COUNT BY AUTOMATED COUNT 12.4 10*3/uL High 1.5-6.6 [facility] Comment on above: Result Comment: This is an appended report. These results have been appended to a previously preliminary verified report. Performed By: #### P INR #### [facility] ([facility]) [address] [place] [address] VIR NEUTROPHILS RELATIVE PERCENT BY AUTOMATED COUNT 80.2 % Normal [facility] Comment on above: Result Comment: This is an appended report. These results have been appended to a previously preliminary verified report. Performed By: #### P INR #### [facility] ([facility]) [address] [place] [address] VIR Platelet mean volume (Bld) [Entitic vol] 10.7 fL Normal 7-12 [facility] Comment on above: Performed By: #### P INR #### [facility] ([facility]) [address] [place] [address] VIR Platelets (Bld) [#/Vol] 115 10*3/uL Low 150-450 [facility] Comment on above: Performed By: #### P INR #### [facility] ([facility]) [address] [place] [address] VIR RBC COUNT 4.27 [id number]/L Normal 3.8-5.2 [facility] Comment on above: Performed By: #### P INR #### [facility] ([facility]) [address] [place] [address] VIR WBC (Bld) [#/Vol] 15.5 10*3/uL High 4-11 [facility] Comment on above: Performed By: #### P INR #### [facility] ([facility]) [address] [place] [address] VIR CBC auto differentialon 09-17 Basophils (Bld) [#/Vol] 0 10*3/uL 0.0 - 0.2 10*3/uL [facility] Basophils/100 WBC (Bld) 0.1 % P [facility] Differential cell count method Nom (Bld) AUTOMATED DIFFERENTIAL [facility] Eosinophils (Bld) [#/Vol] 0 10*3/uL 0.0 - 0.4 10*3/uL [facility] Eosinophils/100 WBC (Bld) 0.1 % [facility] Erythrocyte distribution width (RBC) [Ratio] 16.4 % High 11.5 - 15 % [facility] Hematocrit (Bld) [Volume fraction] 35.5 % 35 - 47 % [facility] Hemoglobin (Bld) [Mass/Vol] 11.5 g/dL Low 11.7 - 15.5 g/dL [facility] Interpretation and review of laboratory results Abnormal [facility] Lymphocytes (Bld) [#/Vol] 1.3 10*3/uL 1.0 - 3.5 10*3/uL [facility] Lymphocytes/100 WBC (Bld) 8.3 % [facility] MCH (RBC) [Entitic mass] 27 pg 27 - 34 pg [facility] MCHC (RBC) [Mass/Vol] 32.5 g/dL 32 - 3 6 g/dL [facility] MCV (RBC) [Entitic vol] 83 fL 80 - 100 fL [facility] Monocytes (Bld) [#/Vol] 1.8 10*3/uL High 0.0 - 0.9 10*3/uL [facility] Monocytes/100 WBC (Bld) 11.3 % P [facility] Neutrophils (Bld) [#/Vol] 12.4 10*3/uL High 1.5 - 6.6 10*3/uL [facility] Neutrophils/100 WBC (Bld) 80.2 % [facility] Platelet mean volume (Bld) [Entitic vol] 10.7 fL 7 - 12 fL [facility] Platelets (Bld) [#/Vol] 115 10*3/uL Low [facility] RBC (Bld) [#/Vol] 4.27 10*6/uL [facility] WBC LM Ql (Sput) 15.5 High [facility] FL SWALLOW MOTILITY FUNCTION on 09-28-2024 FL SWALLOW MOTILITY FUNCTION FL SWALLOW MOTILITY FUNCTION FL SWALLOW MOTILITY FUNCTION HISTORY: Oropharyngeal dysphagia COMPARISON: Fluoroscopy swallow study 09/24/2024 TECHNIQUE: Video fluoroscopic swallow study was performed in conjunction with speech pathologist. Barium contrast materials of varying consistencies administered. FINDINGS: Fluoroscopy time: 2.0 Reference air kerma: 4.1 mGy Runs: 12 Thin: Penetration with cup and straw. No aspiration. Mildly thick: Not tested Moderately thick: Not tested Applesauce: No penetration or aspiration. Fruit: No penetration or aspiration. Cracker: No penetration or aspiration. IMPRESSION: 1. Abnormal swallow study as detailed above 2. Please correlate with dedicated speech pathology report for additional details and recommendations. Approved by Andrey Shannon MD on 09/28/2024 3:00 PM I, Jayla Arroyo MD have personally reviewed the image(s) and agree with and/or edited the report Finalized by Jayla Arroyo MD on 09/28/2024 3:08 PM Normal [facility] IONIZED CALCIUMon 09-28-2024 IONIZED CALCIUM - ICAN 4.3 mg/dL Low 4.5-5.3 Pr [facility] Comment on above: Performed By: #### P INR #### [facility] ([facility]) [address] [place] [address] VIR Ionized calciumon 09-28-2024 Calcium.ionized ISE [Moles/Vol] 4.3 mg/dL Low 4.5 - 5.3 mg/dL [facility] Interpretation and review of laboratory results Abnormal [facility] MAGNESIUMon 09-28-2024 Magnesium [Mass/Vol] 1.8 mg/dL Normal 1.8-2.6 [facility] Comment on above: Performed By: #### P INR #### [facility] ([facility]) [address] [place] [address] VIR Magnesiumon 09-28-2024 Magnesium [Mass/Vol] 1.8 mg/dL 1.8 - 2 .6 mg/dL [facility] No Panel Informationon 09-28 Interpretation and review of laboratory results Normal [facility] PHOSPHORUSon 09-28-2024 Phosphate [Mass/Vol] 2.6 mg/dL Normal 2.4-4.9 [facility] Comment on above: Performed By: #### P INR #### [facility] ([facility]) [address] [place] [address] VIR Phosphoruson 09-28-2024 Phosphate [Mass/Vol] 2.6 mg/dL 2.4 - 4 .9 mg/dL [facility] RF videography Hypopharynx a nd Esophagus Viewson 09-28-2024 SECTRAPACS [facility] Radiology Study observation (narrative) [facility] RF videography Hypopharynx a nd Esophagus ViewsOrdered By: Jayla Arroyo on 09-28-2024 [facility] Work Phone: BASIC METABOLIC PANELon 05 Anion gap [Moles/Vol] 10 mmol/L Normal 5-15 [facility] Comment on above: Performed By: #### P INR #### [facility] ([facility]) [address] [place] [address] VIR Calcium [Mass/Vol] 9.0 mg/dL Normal 8.5-10.5 [facility] Comment on above: Performed By: #### P INR #### [facility] ([facility]) [address] [place] [address] VIR Chloride [Moles/Vol] 109 mmol/L Normal 98-109 [facility] Comment on above: Performed By: #### P INR #### [facility] ([facility]) [address] [place] [address] VIR CO2 [Moles/Vol] 25 mmol/L Normal 22-32 [facility] Comment on above: Performed By: #### P INR #### [facility] ([facility]) [address] [place] [address] VIR Creatinine [Mass/Vol] 0.74 mg/dL Normal 0.40-1.00 [facility] Comment on above: Result Comment: METH OD TRACEABLE TO IDMS STANDARD Performed By: #### P INR #### [facility] ([facility]) [address] [place] [address] VIR EGFR (CKD-EPI) NON-RACE DEPENDENT >^90 Normal >=60 [facility] Comment on above: Result Comment: Repo rted eGFR is based on the CKD-EPI 2020 equation that does not use a race coefficient. Performed By: #### P INR #### [facility] ([facility]) [address] [place] [address] VIR Glucose [Mass/Vol] 101 mg/dL High 65-99 [facility] Comment on above: Performed By: #### P INR #### [facility] ([facility]) [address] [place] [address] VIR Potassium [Moles/Vol] 4.6 mmol/L Normal 3.5-5.0 [facility] Comment on above: Performed By: #### P INR #### [facility] ([facility]) [address] [place] [address] VIR Sodium [Moles/Vol] 144 mmol/L Normal 134-146 [facility] Comment on above: Performed By: #### P INR #### [facility] ([facility]) [address] [place] [address] VIR Urea nitrogen [Mass/Vol] 27 mg/dL High 5-23 [facility] Comment on above: Performed By: #### P INR #### [facility] ([facility]) [address] [place] [address] VIR Basic Metabolic Panelon 09-17 Anion gap [Moles/Vol] 10 mmol/L 5 - 15 mmol/L [facility] Calcium [Mass/Vol] 9 mg/dL 8.5 - 10. 5 mg/dL [facility] Chloride [Moles/Vol] 109 mmol/L 98 - 10 9 mmol/L [facility] CO2 [Moles/Vol] 25 mmol/L 22 - 32 mmol/L [facility] Creatinine [Mass/Vol] 0.74 mg/dL 0.40 - 1.00 mg/dL [facility] EGFR Non-Race Dependent - PINF P [facility] Glucose [Mass/Vol] 101 mg/dL High 65 - 99 mg/dL [facility] Interpretation and review of laboratory results Abnormal [facility] Potassium [Moles/Vol] 4.6 mmol/L 3.5 - 5.0 mmol/L [facility] Sodium [Moles/Vol] 144 mmol/L 134 - 146 mmol/L [facility] Urea nitrogen [Mass/Vol] 27 mg/dL High 5 - 23 mg/dL [facility] CBC WITH AUTO DIFFERENTIALon 09-27-2024 CELLAVISION DIFFERENTIAL TYPE CELLAVISION DIFFERENTIAL Normal [facility] Comment on above: Result Comment: This is an appended report. These results have been appended to a previously preliminary verified report. Performed By: #### U LUDMILA #### [facility] ([facility]) [address] [place] [address] VIR CELLAVISION LYMPHOCYTES ABSOLUTE COUNT (10*3/UL) BY MANUAL COUNT 0.8 10*3/uL Low 1.0-3.5 [facility] Comment on above: Result Comment: This is an appended report. These results have been appended to a previously preliminary verified report. Performed By: #### U LUDMILA #### [facility] ([facility]) [address] [place] [address] VIR CELLAVISION LYMPHOCYTES RELATIVE PERCENT BY MANUAL COUNT 5 % Normal [facility] Comment on above: Result Comment: This is an appended report. These results have been appended to a previously preliminary verified report. Performed By: #### U LUDMILA #### [facility] ([facility]) [address] [place] [address] VIR CELLAVISION MONOCYTES ABSOLUTE COUNT (10*3/UL) IN BLOOD BY MANUAL COUNT 2.2 10*3/uL High 0.0-0.9 [facility] Comment on above: Result Comment: This is an appended report. These results have been appended to a previously preliminary verified report. Performed By: #### U LUDMILA #### [facility] ([facility]) [address] [place] [address] VIR CELLAVISION MONOCYTES RELATIVE PERCENT BY MANUAL COUNT 13 % Normal [facility] Comment on above: Result Comment: This is an appended report. These results have been appended to a previously preliminary verified report. Performed By: #### U LUDMILA #### [facility] ([facility]) [address] [place] [address] VIR CELLAVISION MYELOCYTE RELATIVE PERCENT BY MANUAL COUNT 1 % Normal [facility] Comment on above: Result Comment: This is an appended report. These results have been appended to a previously preliminary verified report. Performed By: #### U LUDMILA #### [facility] ([facility]) [address] [place] [address] VIR CELLAVISION NEUTROPHILS ABSOLUTE COUNT BY MANUAL COUNT 14.0 10*3/uL High 1.5-6.6 [facility] Comment on above: Result Comment: This is an appended report. These results have been appended to a previously preliminary verified report. Performed By: #### U LUDMILA #### [facility] ([facility]) [address] [place] [address] VIR CELLAVISION NEUTROPHILS RELATIVE PERCENT BY MANUAL COUNT 82 % Normal [facility] Comment on above: Result Comment: This is an appended report. These results have been appended to a previously preliminary verified report. Performed By: #### U LUDMILA #### [facility] ([facility]) [address] [place] [address] VIR Erythrocyte distribution width (RBC) [Ratio] 16.6 % High 11.5-15 [facility] Comment on above: Performed By: #### U LUDMILA #### [facility] ([facility]) [address] [place] [address] VIR Hematocrit (Bld) [Volume fraction] 34.3 % Low 35-47 [facility] Comment on above: Performed By: #### U LUDMILA #### [facility] ([facility]) [address] [place] [address] VIR Hemoglobin (Bld) [Mass/Vol] 11.3 g/dL Low 11.7-15.5 [facility] Comment on above: Performed By: #### U LUDMILA #### [facility] ([facility]) [address] [place] [address] VIR MCH (RBC) [Entitic mass] 27.3 pg Normal 27-34 [facility] Comment on above: Performed By: #### U LUDMILA #### [facility] ([facility]) [address] [place] [address] VIR MCHC (RBC) [Mass/Vol] 33.0 g/dL Normal 32-36 [facility] Comment on above: Performed By: #### U LUDMILA #### [facility] ([facility]) [address] [place] [address] VIR MCV (RBC) [Entitic vol] 83 fL Normal 80-100 [facility] Comment on above: Performed By: #### U LUDMILA #### [facility] ([facility]) [address] [place] [address] VIR Platelet mean volume (Bld) [Entitic vol] 11.6 fL Normal 7-12 [facility] Comment on above: Performed By: #### U LUDMILA #### [facility] ([facility]) [address] [place] [address] VIR Platelets (Bld) [#/Vol] 116 10*3/uL Low 150-450 [facility] Comment on above: Performed By: #### U LUDMILA #### [facility] ([facility]) [address] [place] [address] VIR RBC COUNT 4.14 X10E12/L Normal 3.8-5.2 [facility] Comment on above: Performed By: #### U LUDMILA #### [facility] ([facility]) [address] [place] [address] VIR WBC (Bld) [#/Vol] 17.1 10*3/uL High 4-11 [facility] Comment on above: Performed By: #### U LUDMILA #### [facility] ([facility]) [address] [place] [address] VIR CBC auto differentialon 09-17 Differential cell count method Nom (Bld) CELLAVISION DIFFERENTIAL [facility] Erythrocyte distribution width (RBC) [Ratio] 16.6 % High 11.5 - 15 % [facility] Hematocrit (Bld) [Volume fraction] 34.3 % Low 35 - 47 % [facility] Hemoglobin (Bld) [Mass/Vol] 11.3 g/dL Low 11.7 - 15.5 g/dL [facility] Interpretation and review of laboratory results Abnormal [facility] Lymphocytes (Bld) [#/Vol] 0.8 10*3/uL Low 1.0 - 3.5 10*3/uL [facility] MCH (RBC) [Entitic mass] 27.3 pg 27 - 34 pg [facility] MCHC (RBC) [Mass/Vol] 33 g/dL 32 - 3 6 g/dL [facility] MCV (RBC) [Entitic vol] 83 fL 80 - 100 fL [facility] Monocytes (Bld) [#/Vol] 2.2 10*3/uL High 0.0 - 0.9 10*3/uL [facility] Monocytes/100 WBC (Bld) 13 % P [facility] Myelocytes/100 WBC (Bld) 1 % [facility] Neutrophils (Bld) [#/Vol] 14 10*3/uL High 1.5 - 6.6 10*3/uL [facility] Neutrophils/100 WBC (Bld) 82 % [facility] Platelet mean volume (Bld) [Entitic vol] 11.6 fL 7 - 12 fL [facility] Platelets (Bld) [#/Vol] 116 10*3/uL Low [facility] RBC (Bld) [#/Vol] 4.14 10*6/uL [facility] Variant lymphocytes/100 WBC (Bld) 5 % [facility] WBC LM Ql (Sput) 17.1 High [facility] IONIZED CALCIUMon 09-27-2024 IONIZED CALCIUM - ICAN 4.8 mg/dL Normal 4.5-5.3 [facility] Comment on above: Performed By: #### U LUDMILA #### [facility] ([facility]) [address] [place] [address] VIR Ionized calciumon 09-27-2024 Calcium.ionized ISE [Moles/Vol] 4.8 mg/dL 4.5 - 5.3 mg/dL [facility] Interpretation and review of laboratory results Normal [facility] MAGNESIUMon 09-27-2024 Magnesium [Mass/Vol] 1.9 mg/dL Normal 1.8-2.6 [facility] Comment on above: Performed By: #### U LUDMILA #### [facility] ([facility]) [address] [place] [address] VIR Magnesiumon 09-27-2024 Magnesium [Mass/Vol] 1.9 mg/dL 1.8 - 2 .6 mg/dL [facility] No Panel Informationon 09-27 Interpretation and review of laboratory results Normal [facility] PHOSPHORUSon 09-27-2024 Phosphate [Mass/Vol] 2.8 mg/dL Normal 2.4-4.9 [facility] Comment on above: Performed By: #### U LUDMILA #### [facility] ([facility]) [address] [place] [address] VIR Phosphoruson 09-27-2024 Phosphate [Mass/Vol] 2.8 mg/dL 2.4 - 4 .9 mg/dL [facility] XR CHEST 1 VWon 09-27-2024 XR CHEST 1 VW XR CHEST 1 VW Single view chest History:evaluate for PNA Difficulty breathing, shortness of breath Comparison: 09/23/2024 Findings: Single portable view of the chest. Stable cardiomediastinal silhouette. No focal opacity, effusion or pneumothorax. Impression: No significant interval change or definitive acute process. Finalized by Eliazar Sterling MD on 09/27/2024 6:34 AM Normal [facility] XR Chest Single viewon 09-27 SECTRAPACS [facility] Radiology Study observation (narrative) [facility] XR Chest Single viewOrdered By: Eliazar Sterling on 09-27-2024 [facility] Work Phone: Bacteria identified Aer cx N om (Bld)Ordered By: Sheng Calderon on 09-26-2024 Bacteria identified Aer cx Nom (Unsp spec) NO GROWTH 5 DAYS [facility] BASIC METABOLIC PANELon 05-0 Anion gap [Moles/Vol] 10 mmol/L Normal 5-15 [facility] Comment on above: Performed By: #### U LUDMILA #### [facility] ([facility]) [address] [place] [address] VIR Calcium [Mass/Vol] 8.6 mg/dL Normal 8.5-10.5 [facility] Comment on above: Performed By: #### U LUDMILA #### [facility] ([facility]) [address] [place] [address] VIR Chloride [Moles/Vol] 107 mmol/L Normal 98-109 [facility] Comment on above: Performed By: #### U LUDMILA #### [facility] ([facility]) [address] [place] [address] VIR CO2 [Moles/Vol] 24 mmol/L Normal 22-32 [facility] Comment on above: Performed By: #### U LUDMILA #### [facility] ([facility]) [address] [place] [address] VIR Creatinine [Mass/Vol] 0.80 mg/dL Normal 0.40-1.00 [facility] Comment on above: Result Comment: METH OD TRACEABLE TO IDMS STANDARD Performed By: #### U LUDMILA #### [facility] ([facility]) [address] [place] [address] VIR GFR/1.73 sq M.predicted among non-blacks MDRD (S/P/Bld) [Vol rate/Area] 86 mL/min/{1.73_m2} Normal >=60 [facility] Comment on above: Result Comment: Repo rted eGFR is based on the CKD-EPI 2020 equation that does not use a race coefficient. Performed By: #### U LUDMILA #### [facility] ([facility]) [address] [place] [address] VIR Glucose [Mass/Vol] 165 mg/dL High 65-99 [facility] Comment on above: Performed By: #### U LUDMILA #### [facility] ([facility]) [address] [place] [address] VIR Potassium [Moles/Vol] 4.0 mmol/L Normal 3.5-5.0 [facility] Comment on above: Performed By: #### U LUDMILA #### [facility] ([facility]) [address] [place] [address] VIR Sodium [Moles/Vol] 141 mmol/L Normal 134-146 [facility] Comment on above: Performed By: #### U LUDMILA #### [facility] ([facility]) [address] [place] [address] VIR Urea nitrogen [Mass/Vol] 24 mg/dL High 5-23 [facility] Comment on above: Performed By: #### U LUDMILA #### [facility] ([facility]) [address] [place] [address] VIR Basic Metabolic Panelon Anion gap [Moles/Vol] 10 mmol/L 5 - 15 mmol/L [facility] Calcium [Mass/Vol] 8.6 mg/dL 8.5 - 10. 5 mg/dL [facility] Chloride [Moles/Vol] 107 mmol/L 98 - 10 9 mmol/L [facility] CO2 [Moles/Vol] 24 mmol/L 22 - 32 mmol/L [facility] Creatinine [Mass/Vol] 0.8 mg/dL 0.40 - 1.00 mg/dL [facility] EGFR Non-Race Dependent 86 - PINF P [facility] Glucose [Mass/Vol] 165 mg/dL High 65 - 99 mg/dL [facility] Interpretation and review of laboratory results Abnormal [facility] Potassium [Moles/Vol] 4 mmol/L 3.5 - 5.0 mmol/L [facility] Sodium [Moles/Vol] 141 mmol/L 134 - 146 mmol/L [facility] Urea nitrogen [Mass/Vol] 24 mg/dL High 5 - 23 mg/dL [facility] CBC WITH AUTO DIFFERENTIALon 09-25-2024 CELLAVISION DIFFERENTIAL TYPE CELLAVISION DIFFERENTIAL Normal [facility] Comment on above: Result Comment: This is an appended report. These results have been appended to a previously preliminary verified report. Performed By: #### C PK #### [facility] ([facility]) [address] [place] [address] VIR CELLAVISION LYMPHOCYTES ABSOLUTE COUNT (10*3/UL) BY MANUAL COUNT 0.7 10*3/uL Low 1.0-3.5 [facility] Comment on above: Result Comment: This is an appended report. These results have been appended to a previously preliminary verified report. Performed By: #### C PK #### [facility] ([facility]) [address] [place] [address] VIR CELLAVISION LYMPHOCYTES RELATIVE PERCENT BY MANUAL COUNT 3 % Normal [facility] Comment on above: Result Comment: This is an appended report. These results have been appended to a previously preliminary verified report. Performed By: #### C PK #### [facility] ([facility]) [address] [place] [address] VIR CELLAVISION MONOCYTES ABSOLUTE COUNT (10*3/UL) IN BLOOD BY MANUAL COUNT 2.5 10*3/uL High 0.0-0.9 [facility] Comment on above: Result Comment: This is an appended report. These results have been appended to a previously preliminary verified report. Performed By: #### C PK #### [facility] ([facility]) [address] [place] [address] VIR CELLAVISION MONOCYTES RELATIVE PERCENT BY MANUAL COUNT 11 % Normal [facility] Comment on above: Result Comment: This is an appended report. These results have been appended to a previously preliminary verified report. Performed By: #### C PK #### [facility] ([facility]) [address] [place] [address] VIR CELLAVISION MYELOCYTE RELATIVE PERCENT BY MANUAL COUNT 1 % Normal [facility] Comment on above: Result Comment: This is an appended report. These results have been appended to a previously preliminary verified report. Performed By: #### C PK #### [facility] ([facility]) [address] [place] [address] VIR CELLAVISION NEUTROPHILS ABSOLUTE COUNT BY MANUAL COUNT 20.4 10*3/uL High 1.5-6.6 [facility] Comment on above: Result Comment: This is an appended report. These results have been appended to a previously preliminary verified report. Performed By: #### C PK #### [facility] ([facility]) [address] [place] [address] VIR CELLAVISION NEUTROPHILS RELATIVE PERCENT BY MANUAL COUNT 86 % Normal [facility] Comment on above: Result Comment: This is an appended report. These results have been appended to a previously preliminary verified report. Performed By: #### C PK #### [facility] ([facility]) [address] [place] [address] VIR CELLAVISION RBC MORPHOLOGY Normal Normal [facility] Comment on above: Result Comment: This is an appended report. These results have been appended to a previously preliminary verified report. Performed By: #### C PK #### [facility] ([facility]) [address] [place] [address] VIR CELLAVISION VACUOLATED NEUTROPHILS 1+ Normal [facility] Comment on above: Result Comment: This is an appended report. These results have been appended to a previously preliminary verified report. Performed By: #### C PK #### [facility] ([facility]) [address] [place] [address] VIR Erythrocyte distribution width (RBC) [Ratio] 15.8 % High 11.5-15 [facility] Comment on above: Performed By: #### C PK #### [facility] ([facility]) [address] [place] [address] VIR Hematocrit (Bld) [Volume fraction] 34.4 % Low 35-47 [facility] Comment on above: Performed By: #### C PK #### [facility] ([facility]) [address] [place] [address] VIR Hemoglobin (Bld) [Mass/Vol] 11.1 g/dL Low 11.7-15.5 [facility] Comment on above: Performed By: #### C PK #### [facility] ([facility]) [address] [place] [address] VIR MCH (RBC) [Entitic mass] 26.7 pg Low 27-34 [facility] Comment on above: Performed By: #### C PK #### [facility] ([facility]) [address] [place] [address] VIR MCHC (RBC) [Mass/Vol] 32.3 g/dL Normal 32-36 [facility] Comment on above: Performed By: #### C PK #### [facility] ([facility]) [address] [place] [address] VIR MCV (RBC) [Entitic vol] 83 fL Normal 80-100 [facility] Comment on above: Performed By: #### C PK #### [facility] ([facility]) [address] [place] [address] VIR Platelet mean volume (Bld) [Entitic vol] 10.5 fL Normal 7-12 [facility] Comment on above: Performed By: #### C PK #### [facility] ([facility]) [address] [place] [address] VIR Platelets (Bld) [#/Vol] 120 10*3/uL Low 150-450 [facility] Comment on above: Performed By: #### C PK #### [facility] ([facility]) [address] [place] [address] VIR RBC COUNT 4.16 X10E12/L Normal 3.8-5.2 [facility] Comment on above: Performed By: #### C PK #### [facility] ([facility]) [address] [place] [address] VIR WBC (Bld) [#/Vol] 23.8 10*3/uL High 4-11 [facility] Comment on above: Performed By: #### C PK #### [facility] ([facility]) [address] [place] [address] VIR CBC auto differentialon 05-0 Differential cell count method Nom (Bld) CELLAVISION DIFFERENTIAL [facility] Erythrocyte distribution width (RBC) [Ratio] 15.8 % High 11.5 - 15 % [facility] Hematocrit (Bld) [Volume fraction] 34.4 % Low 35 - 47 % [facility] Hemoglobin (Bld) [Mass/Vol] 11.1 g/dL Low 11.7 - 15.5 g/dL [facility] Interpretation and review of laboratory results Abnormal [facility] Lymphocytes (Bld) [#/Vol] 0.7 10*3/uL Low 1.0 - 3.5 10*3/uL [facility] MCH (RBC) [Entitic mass] 26.7 pg Low 27 - 34 pg [facility] MCHC (RBC) [Mass/Vol] 32.3 g/dL 32 - 3 6 g/dL [facility] MCV (RBC) [Entitic vol] 83 fL 80 - 100 fL [facility] Monocytes (Bld) [#/Vol] 2.5 10*3/uL High 0.0 - 0.9 10*3/uL [facility] Monocytes/100 WBC (Bld) 11 % [facility] Myelocytes/100 WBC (Bld) 1 % [facility] Neutrophils (Bld) [#/Vol] 20.4 10*3/uL High 1.5 - 6.6 10*3/uL [facility] Neutrophils.vacuolated LM Ql (Bld) 1+ [facility] Neutrophils/100 WBC (Bld) 86 % [facility] Platelet mean volume (Bld) [Entitic vol] 10.5 fL 7 - 12 fL [facility] Platelets (Bld) [#/Vol] 120 10*3/uL Low [facility] RBC (Bld) [#/Vol] 4.16 10*6/uL [facility] RBC (Bld) [#/Vol] Normal [facility] Variant lymphocytes/100 WBC (Bld) 3 % [facility] WBC LM Ql (Sput) 23.8 High [facility] IONIZED CALCIUMon 09-25-2024 IONIZED CALCIUM - ICAN 4.8 mg/dL Normal 4.5-5.3 Pr [facility] Comment on above: Performed By: #### C PK #### [facility] ([facility]) [address] [place] [address] VIR IONIZED MAGNESIUMon 09-26-19 Magnesium [Moles/Vol] 0.56 mmol/L Normal 0.45-0.74 Pr [facility] Comment on above: Performed By: #### U LUDMILA #### [facility] ([facility]) [address] [place] [address] VIR Ionized calciumon 09-25-2024 Calcium.ionized ISE [Moles/Vol] 4.8 mg/dL 4.5 - 5.3 mg/dL [facility] Interpretation and review of laboratory results Normal [facility] Ionized magnesiumon 09-26-19 25 Interpretation and review of laboratory results Normal [facility] Magnesium Ionized ISE (Bld) [Moles/Vol] 0.56 mmol/L 0.45 - 0.74 mmol/L [facility] MAGNESIUMon 09-25-2024 Magnesium [Mass/Vol] 1.8 mg/dL Normal 1.8-2.6 [facility] Comment on above: Performed By: #### U LUMDILA #### [facility] ([facility]) [address] [place] [address] VIR Magnesiumon 09-25-2024 Interpretation and review of laboratory results Normal [facility] Magnesium [Mass/Vol] 1.8 mg/dL 1.8 - 2 .6 mg/dL [facility] No Panel Informationon 09-25 [facility] PHOSPHORUSon 09-25-2024 Phosphate [Mass/Vol] 2.3 mg/dL Low 2.4-4.9 [facility] Comment on above: Performed By: #### U LUDMILA #### [facility] ([facility]) [address] [place] [address] VIR Phosphoruson 09-25-2024 Interpretation and review of laboratory results Abnormal [facility] Phosphate [Mass/Vol] 2.3 mg/dL Low 2.4 - 4 .9 mg/dL [facility] Bacteria identified Aer cx N om (Bld)on 09-24-2024 Bacteria identified Aer cx Nom (Unsp spec) NO GROWTH 5 DAYS [facility] CBC WITH AUTO DIFFERENTIALon 09-24-2024 BASOPHILS ABSOLUTE COUNT (10*3/UL) BY AUTOMATED COUNT 0.0 10*3/uL Normal [facility] Comment on above: Result Comment: This is an appended report. These results have been appended to a previously preliminary verified report. Performed By: #### C PK #### [facility] ([facility]) [address] [place] [address] VIR BASOPHILS RELATIVE PERCENT BY AUTOMATED COUNT 0.1 % Normal [facility] Comment on above: Result Comment: This is an appended report. These results have been appended to a previously preliminary verified report. Performed By: #### C PK #### [facility] ([facility]) [address] [place] [address] VIR CELLAVISION DIFFERENTIAL TYPE AUTOMATED DIFFERENTIAL Normal [facility] Comment on above: Result Comment: This is an appended report. These results have been appended to a previously preliminary verified report. Performed By: #### C PK #### [facility] ([facility]) [address] [place] [address] VIR Eosinophils (Bld) [#/Vol] 0.0 10*3/uL Normal [facility] Comment on above: Result Comment: This is an appended report. These results have been appended to a previously preliminary verified report. Performed By: #### C PK #### [facility] ([facility]) [address] [place] [address] VIR EOSINOPHILS RELATIVE PERCENT BY AUTOMATED COUNT 0.0 % Normal [facility] Comment on above: Result Comment: This is an appended report. These results have been appended to a previously preliminary verified report. Performed By: #### C PK #### [facility] ([facility]) [address] [place] [address] VIR Erythrocyte distribution width (RBC) [Ratio] 15.3 % High 11.5-15 [facility] Comment on above: Performed By: #### C PK #### [facility] ([facility]) [address] [place] [address] VIR Hematocrit (Bld) [Volume fraction] 34.8 % Low 35-47 [facility] Comment on above: Performed By: #### C PK #### [facility] ([facility]) [address] [place] [address] VIR Hemoglobin (Bld) [Mass/Vol] 11.2 g/dL Low 11.7-15.5 [facility] Comment on above: Performed By: #### C PK #### [facility] ([facility]) [address] [place] [address] VIR LYMPHOCYTES ABSOLUTE COUNT (10*3/UL) BY AUTOMATED COUNT 0.7 10*3/uL Normal [facility] Comment on above: Result Comment: This is an appended report. These results have been appended to a previously preliminary verified report. Performed By: #### C PK #### [facility] ([facility]) [address] [place] [address] VIR LYMPHOCYTES RELATIVE PERCENT BY AUTOMATED COUNT 2.8 % Normal [facility] Comment on above: Result Comment: This is an appended report. These results have been appended to a previously preliminary verified report. Performed By: #### C PK #### [facility] ([facility]) [address] [place] [address] VIR MCH (RBC) [Entitic mass] 26.5 pg Low 27-34 [facility] Comment on above: Performed By: #### C PK #### [facility] ([facility]) [address] [place] [address] VIR MCHC (RBC) [Mass/Vol] 32.1 g/dL Normal 32-36 [facility] Comment on above: Performed By: #### C PK #### [facility] ([facility]) [address] [place] [address] VIR MCV (RBC) [Entitic vol] 82 fL Normal 80-100 P [facility] Comment on above: Performed By: #### C PK #### [facility] ([facility]) [address] [place] [address] VIR MONOCYTES ABSOLUTE COUNT (10*3/UL) BY AUTOMATED COUNT 2.8 10*3/uL Normal [facility] Comment on above: Result Comment: This is an appended report. These results have been appended to a previously preliminary verified report. Performed By: #### C PK #### [facility] ([facility]) [address] [place] [address] VIR MONOCYTES RELATIVE PERCENT BY AUTOMATED COUNT 10.4 % Normal [facility] Comment on above: Result Comment: This is an appended report. These results have been appended to a previously preliminary verified report. Performed By: #### C PK #### [facility] ([facility]) [address] [place] [address] VIR NEUTROPHILS ABSOLUTE COUNT BY AUTOMATED COUNT 22.9 10*3/uL Normal [facility] Comment on above: Result Comment: This is an appended report. These results have been appended to a previously preliminary verified report. Performed By: #### C PK #### [facility] ([facility]) [address] [place] [address] VIR NEUTROPHILS RELATIVE PERCENT BY AUTOMATED COUNT 86.7 % Normal [facility] Comment on above: Result Comment: This is an appended report. These results have been appended to a previously preliminary verified report. Performed By: #### C PK #### [facility] ([facility]) [address] [place] [address] VIR Platelet mean volume (Bld) [Entitic vol] 9.5 fL Normal 7-12 [facility] Comment on above: Performed By: #### C PK #### [facility] ([facility]) [address] [place] [address] VIR Platelets (Bld) [#/Vol] 155 10*3/uL Normal 150-450 [facility] Comment on above: Performed By: #### C PK #### [facility] ([facility]) [address] [place] [address] VIR RBC COUNT 4.22 [id number] Normal 3.8-5.2 [facility] Comment on above: Performed By: #### C PK #### [facility] ([facility]) [address] [place] [address] VIR WBC (Bld) [#/Vol] 26.5 10*3/uL High 4-11 [facility] Comment on above: Performed By: #### C PK #### [facility] ([facility]) [address] [place] [address] VIR CBC auto differentialon 05-0 Basophils (Bld) [#/Vol] 0 10*3/uL [facility] Basophils/100 WBC (Bld) 0.1 % [facility] Differential cell count method Nom (Bld) AUTOMATED DIFFERENTIAL [facility] Eosinophils (Bld) [#/Vol] 0 10*3/uL [facility] Eosinophils/100 WBC (Bld) 0 % [facility] Erythrocyte distribution width (RBC) [Ratio] 15.3 % High 11.5 - 15 % [facility] Hematocrit (Bld) [Volume fraction] 34.8 % Low 35 - 47 % [facility] Hemoglobin (Bld) [Mass/Vol] 11.2 g/dL Low 11.7 - 15.5 g/dL [facility] Interpretation and review of laboratory results Abnormal [facility] Lymphocytes (Bld) [#/Vol] 0.7 10*3/uL [facility] Lymphocytes/100 WBC (Bld) 2.8 % [facility] MCH (RBC) [Entitic mass] 26.5 pg Low 27 - 34 pg [facility] MCHC (RBC) [Mass/Vol] 32.1 g/dL 32 - 3 6 g/dL [facility] MCV (RBC) [Entitic vol] 82 fL 80 - 100 fL [facility] Monocytes (Bld) [#/Vol] 2.8 10*3/uL [facility] Monocytes/100 WBC (Bld) 10.4 % P [facility] Neutrophils (Bld) [#/Vol] 22.9 10*3/uL [facility] Neutrophils/100 WBC (Bld) 86.7 % [facility] Platelet mean volume (Bld) [Entitic vol] 9.5 fL 7 - 12 fL [facility] Platelets (Bld) [#/Vol] 155 10*3/uL [facility] RBC (Bld) [#/Vol] 4.22 10*6/uL [facility] WBC LM Ql (Sput) 26.5 High [facility] COMPREHENSIVE METABOLIC PANE Antoni 09-24-2024 Albumin [Mass/Vol] 3.3 g/dL Normal 3.2-5.3 [facility] Comment on above: Performed By: #### C PK #### [facility] ([facility]) [address] [place] [address] VIR ALP [Catalytic activity/Vol] 61 U/L Normal 39-130 [facility] Comment on above: Performed By: #### C PK #### [facility] ([facility]) [address] [place] [address] VIR ALT [Catalytic activity/Vol] 33 U/L High <=31 [facility] Comment on above: Performed By: #### C PK #### [facility] ([facility]) [address] [place] [address] VIR Anion gap [Moles/Vol] 10 mmol/L Normal 5-15 [facility] Comment on above: Performed By: #### C PK #### [facility] ([facility]) [address] [place] [address] VIR AST [Catalytic activity/Vol] 19 U/L Normal <=41 [facility] Comment on above: Performed By: #### C PK #### [facility] ([facility]) [address] [place] [address] VIR Bilirubin [Mass/Vol] 0.4 mg/dL Normal 0.3-1.2 [facility] Comment on above: Performed By: #### C PK #### [facility] ([facility]) [address] [place] [address] VIR Calcium [Mass/Vol] 8.7 mg/dL Normal 8.5-10.5 [facility] Comment on above: Performed By: #### C PK #### [facility] ([facility]) [address] [place] [address] VIR Chloride [Moles/Vol] 108 mmol/L Normal 98-109 [facility] Comment on above: Performed By: #### C PK #### [facility] ([facility]) [address] [place] [address] VIR CO2 [Moles/Vol] 23 mmol/L Normal 22-32 [facility] Comment on above: Performed By: #### C PK #### [facility] ([facility]) [address] [place] [address] VIR Creatinine [Mass/Vol] 1.06 mg/dL High 0.40-1.00 [facility] Comment on above: Result Comment: METH OD TRACEABLE TO IDMS STANDARD Performed By: #### C PK #### [facility] ([facility]) [address] [place] [address] VIR GFR/1.73 sq M.predicted among non-blacks MDRD (S/P/Bld) [Vol rate/Area] 62 mL/min/{1.73_m2} Normal >=60 [facility] Comment on above: Result Comment: Repo rted eGFR is based on the CKD-EPI 2020 equation that does not use a race coefficient. Performed By: #### C PK #### [facility] ([facility]) [address] [place] [address] VIR Glucose [Mass/Vol] 120 mg/dL High 65-99 [facility] Comment on above: Performed By: #### C PK #### [facility] ([facility]) [address] [place] [address] VIR Potassium [Moles/Vol] 4.3 mmol/L Normal 3.5-5.0 [facility] Comment on above: Performed By: #### C PK #### [facility] ([facility]) [address] [place] [address] VIR Protein [Mass/Vol] 6.3 g/dL Normal 6.0-8.0 [facility] Comment on above: Performed By: #### C PK #### [facility] ([facility]) [address] [place] [address] VIR Sodium [Moles/Vol] 141 mmol/L Normal 134-146 [facility] Comment on above: Performed By: #### C PK #### [facility] ([facility]) [address] [place] [address] VIR Urea nitrogen [Mass/Vol] 27 mg/dL High 5-23 [facility] Comment on above: Performed By: #### C PK #### [facility] ([facility]) [address] [place] [address] VIR CREATININE, SERUMon 09-25-19 25 CREATININE, SERUM CHILI POWDER MIXER CREATININE, SERU M Cancelled Normal [facility] Comment on above: Order Comment: Spoke to Regina Taylor RN. BMP since resulted making duplicate order, add-on is not necessary. Comprehensive metabolic pane lOrdered By: Paxton Navarro on 09-24-2024 Albumin [Mass/Vol] 3.3 g/dL 3.2 - 5.3 g/dL [facility] ALP [Catalytic activity/Vol] 61 U/L 39 - 130 U/L [facility] ALT No additional P-5'-P [Catalytic activity/Vol] 33 U/L High NINF - 31 U/L [facility] Anion gap [Moles/Vol] 10 mmol/L 5 - 15 mmol/L [facility] AST [Catalytic activity/Vol] 19 U/L NINF - 41 U/L [facility] Bilirubin [Mass/Vol] 0.4 mg/dL 0.3 - 1 .2 mg/dL [facility] Calcium [Mass/Vol] 8.7 mg/dL 8.5 - 10. 5 mg/dL [facility] Chloride [Moles/Vol] 108 mmol/L 98 - 10 9 mmol/L [facility] CO2 [Moles/Vol] 23 mmol/L 22 - 32 mmol/L [facility] Creatinine [Mass/Vol] 1.06 mg/dL High 0.40 - 1.00 mg/dL [facility] EGFR Non-Race Dependent 62 - PINF P [facility] Glucose [Mass/Vol] 120 mg/dL High 65 - 99 mg/dL [facility] Interpretation and review of laboratory results Abnormal [facility] Potassium [Moles/Vol] 4.3 mmol/L 3.5 - 5.0 mmol/L [facility] Protein [Mass/Vol] 6.3 g/dL 6.0 - 8.0 g/dL [facility] Sodium [Moles/Vol] 141 mmol/L 134 - 146 mmol/L [facility] Urea nitrogen [Mass/Vol] 27 mg/dL High 5 - 23 mg/dL [facility] FL SWALLOW MOTILITY FUNCTION on 09-24-2024 FL SWALLOW MOTILITY FUNCTION FL SWALLOW MOTILITY FUNCTION FL SWALLOW MOTILITY FUNCTION HISTORY: Oropharyngeal dysphagia COMPARISON: None TECHNIQUE: Video fluoroscopic swallow study was performed in conjunction with speech pathologist. Barium contrast materials of varying consistencies administered. FINDINGS: Fluoroscopy time: 2.9 minutes Reference air kerma: 7.3 mGy Runs: 16 Thin: Penetration. Mildly thick: Penetration with use of straw. No penetration or aspiration with use of cup. Applesauce: No penetration or aspiration. Fruit: No penetration or aspiration. IMPRESSION: 1. Abnormal swallow study as detailed. 2. Please correlate with dedicated speech pathology report for additional details and recommendations. Approved by Andrey Hernández MD on 09/24/2024 1:31 PM I, Remy Christian MD have personally reviewed the image(s) and agree with and/or edited the report Finalized by Remy Christian MD on 09/24/2024 1:36 PM Normal [facility] IONIZED CALCIUMon 09-24-2024 IONIZED CALCIUM - ICAN 4.9 mg/dL Normal 4.5-5.3 Pr [facility] Comment on above: Performed By: #### C PK #### [facility] ([facility]) [address] [place] [address] VIR Ionized calciumon 09-24-2024 Calcium.ionized ISE [Moles/Vol] 4.9 mg/dL 4.5 - 5.3 mg/dL [facility] Interpretation and review of laboratory results Normal [facility] MAGNESIUMon 09-24-2024 Magnesium [Mass/Vol] 2.3 mg/dL Normal 1.8-2.6 [facility] Comment on above: Performed By: #### C PK #### [facility] ([facility]) [address] [place] [address] VIR Magnesiumon 09-24-2024 Magnesium [Mass/Vol] 2.3 mg/dL 1.8 - 2 .6 mg/dL [facility] No Panel Informationon 09-24 Interpretation and review of laboratory results Normal [facility] PHOSPHORUSon 09-24-2024 Phosphate [Mass/Vol] 3.5 mg/dL Normal 2.4-4.9 [facility] Comment on above: Performed By: #### C PK #### [facility] ([facility]) [address] [place] [address] VIR Phosphoruson 09-24-2024 Phosphate [Mass/Vol] 3.5 mg/dL 2.4 - 4 .9 mg/dL [facility] RF videography Hypopharynx a nd Esophagus Viewson 09-24-2024 SECTRAPACS [facility] Radiology Study observation (narrative) [facility] RF videography Hypopharynx a nd Esophagus ViewsOrdered By: Remy Christian on 09-24-2024 [facility] Work Phone: ABO Rh Repeaton 09-23-2024 ABO O [facility] Rh Nom (Bld) Positive [facility] ABO O [facility] Rh Nom (Bld) Positive [facility] BASIC METABOLIC PANELon Anion gap [Moles/Vol] 8 mmol/L Normal 5-15 [facility] Comment on above: Performed By: #### T [email or web address] #### [facility] ([facility]) [address] [place] [address] VIR Calcium [Mass/Vol] 9.0 mg/dL Normal 8.5-10.5 [facility] Comment on above: Performed By: #### T [email or web address] #### [facility] ([facility]) [address] [place] [address] VIR Chloride [Moles/Vol] 111 mmol/L High 98-109 [facility] Comment on above: Performed By: #### T [email or web address] #### [facility] ([facility]) [address] [place] [address] VIR CO2 [Moles/Vol] 24 mmol/L Normal 22-32 [facility] Comment on above: Performed By: #### T [email or web address] #### [facility] ([facility]) [address] [place] [address] VIR Creatinine [Mass/Vol] 0.91 mg/dL Normal 0.40-1.00 [facility] Comment on above: Result Comment: METH OD TRACEABLE TO IDMS STANDARD Performed By: #### T [email or web address] #### [facility] ([facility]) [address] [place] [address] VIR GFR/1.73 sq M.predicted among non-blacks MDRD (S/P/Bld) [Vol rate/Area] 74 mL/min/{1.73_m2} Normal >=60 [facility] Comment on above: Result Comment: Repo rted eGFR is based on the CKD-EPI 2020 equation that does not use a race coefficient. Performed By: #### T NIHS1 #### [facility] ([facility]) [address] [place] [address] VIR Glucose [Mass/Vol] 106 mg/dL High 65-99 [facility] Comment on above: Performed By: #### T [email or web address] #### [facility] ([facility]) [address] [place] [address] VIR Potassium [Moles/Vol] 4.4 mmol/L Normal 3.5-5.0 [facility] Comment on above: Performed By: #### T [email or web address] #### [facility] ([facility]) [address] [place] [address] VIR Sodium [Moles/Vol] 143 mmol/L Normal 134-146 [facility] Comment on above: Performed By: #### T [email or web address] #### [facility] ([facility]) [address] [place] [address] VIR Urea nitrogen [Mass/Vol] 25 mg/dL High 5-23 [facility] Comment on above: Performed By: #### T [email or web address] #### [facility] ([facility]) [address] [place] [address] VIR BEDSIDE GLUCOSEon 09-23-2024 Glucose [Mass/Vol] 153 mg/dL High 65-99 [facility] Comment on above: Performed By: #### T [email or web address] #### [facility] ([facility]) [address] [place] [address] VIR Basic Metabolic PanelOrdered By: Prema Beach on 09-23-2024 Anion gap [Moles/Vol] 8 mmol/L 5 - 15 mmol/L [facility] Calcium [Mass/Vol] 9 mg/dL 8.5 - 10. 5 mg/dL [facility] Chloride [Moles/Vol] 111 mmol/L High 98 - 10 9 mmol/L [facility] CO2 [Moles/Vol] 24 mmol/L 22 - 32 mmol/L [facility] Creatinine [Mass/Vol] 0.91 mg/dL 0.40 - 1.00 mg/dL [facility] EGFR Non-Race Dependent 74 - PINF P [facility] Glucose [Mass/Vol] 106 mg/dL High 65 - 99 mg/dL [facility] Interpretation and review of laboratory results Abnormal [facility] Potassium [Moles/Vol] 4.4 mmol/L 3.5 - 5.0 mmol/L [facility] Sodium [Moles/Vol] 143 mmol/L 134 - 146 mmol/L [facility] Urea nitrogen [Mass/Vol] 25 mg/dL High 5 - 23 mg/dL [facility] Bedside Glucose *Place/Obtai n serum glucose if >500 per glucometer.on 09-23-2024 Glucose [Mass/Vol] 153 mg/dL High 65 - 99 mg/dL [facility] Interpretation and review of laboratory results Abnormal [facility] CBC WITH AUTO DIFFERENTIALon 09-23-2024 BASOPHILS ABSOLUTE COUNT (10*3/UL) BY AUTOMATED COUNT 0.1 10*3/uL Normal [facility] Comment on above: Performed By: #### T [email or web address] #### [facility] ([facility]) [address] [place] [address] VIR BASOPHILS RELATIVE PERCENT BY AUTOMATED COUNT 0.4 % Normal [facility] Comment on above: Performed By: #### T [email or web address] #### [facility] ([facility]) [address] [place] [address] VIR CELLAVISION DIFFERENTIAL TYPE AUTOMATED DIFFERENTIAL Normal [facility] Comment on above: Performed By: #### T [email or web address] #### [facility] ([facility]) [address] [place] [address] VIR Eosinophils (Bld) [#/Vol] 0.0 10*3/uL Normal [facility] Comment on above: Performed By: #### T [email or web address] #### [facility] ([facility]) [address] [place] [address] VIR EOSINOPHILS RELATIVE PERCENT BY AUTOMATED COUNT 0.1 % Normal [facility] Comment on above: Performed By: #### T NIHS1 #### [facility] ([facility]) [address] [place] [address] VIR Erythrocyte distribution width (RBC) [Ratio] 15.5 % High 11.5-15 [facility] Comment on above: Performed By: #### T NIHS1 #### [facility] ([facility]) [address] [place] [address] VIR Hematocrit (Bld) [Volume fraction] 37.3 % Normal 35-47 [facility] Comment on above: Performed By: #### T [email or web address] #### [facility] ([facility]) [address] [place] [address] VIR Hemoglobin (Bld) [Mass/Vol] 12.3 g/dL Normal 11.7-15.5 [facility] Comment on above: Performed By: #### T NIHS1 #### [facility] ([facility]) [address] [place] [address] VIR LYMPHOCYTES ABSOLUTE COUNT (10*3/UL) BY AUTOMATED COUNT 1.1 10*3/uL Normal [facility] Comment on above: Performed By: #### T [email or web address] #### [facility] ([facility]) [address] [place] [address] VIR LYMPHOCYTES RELATIVE PERCENT BY AUTOMATED COUNT 7.0 % Normal [facility] Comment on above: Performed By: #### T [email or web address] #### [facility] ([facility]) [address] [place] [address] VIR MCH (RBC) [Entitic mass] 26.9 pg Low 27-34 [facility] Comment on above: Performed By: #### T [email or web address] #### [facility] ([facility]) [address] [facility] [place] [address] VIR MCHC (RBC) [Mass/Vol] 32.9 g/dL Normal 32-36 [facility] Comment on above: Performed By: #### T [email or web address] #### [facility] ([facility]) [address] [place] [address] VIR MCV (RBC) [Entitic vol] 82 fL Normal 80-100 [facility] Comment on above: Performed By: #### T [email or web address] #### [facility] ([facility]) [address] [facility] [place] [address] VIR MONOCYTES ABSOLUTE COUNT (10*3/UL) BY AUTOMATED COUNT 1.0 10*3/uL Normal [facility] Comment on above: Performed By: #### T [email or web address] #### [facility] ([facility]) [address] [place] [place] [address] VIR MONOCYTES RELATIVE PERCENT BY AUTOMATED COUNT 6.9 % Normal [facility] Comment on above: Performed By: #### T [email or web address] #### [facility] ([facility]) [address] [place] [place] [address] VIR NEUTROPHILS ABSOLUTE COUNT BY AUTOMATED COUNT 12.9 10*3/uL Normal [facility] Comment on above: Performed By: #### T [email or web address] #### [facility] ([facility]) [address] [place] [place] [address] VIR NEUTROPHILS RELATIVE PERCENT BY AUTOMATED COUNT 85.6 % Normal [facility] Comment on above: Performed By: #### T [email or web address] #### [facility] ([facility]) [address] [facility] [address] VIR Platelet mean volume (Bld) [Entitic vol] 9.5 fL Normal 7-12 [facility] Comment on above: Performed By: #### T [email or web address] #### [facility] ([facility]) [address] [place] [address] VIR Platelets (Bld) [#/Vol] 167 10*3/uL Normal 150-450 [facility] Comment on above: Performed By: #### T [email or web address] #### [facility] ([facility]) [address] [place] [address] VIR RBC COUNT 4.57 X10E12/L Normal 3.8-5.2 [facility] Comment on above: Performed By: #### T [email or web address] #### [facility] ([facility]) [address] [place] [address] VIR WBC (Bld) [#/Vol] 15.1 10*3/uL High 4-11 [facility] Comment on above: Performed By: #### T [email or web address] #### [facility] ([facility]) [address] [place] [address] VIR CBC auto differentialon 05-0 Basophils (Bld) [#/Vol] 0.1 10*3/uL [facility] Basophils/100 WBC (Bld) 0.4 % [facility] Differential cell count method Nom (Bld) AUTOMATED DIFFERENTIAL [facility] Eosinophils (Bld) [#/Vol] 0 10*3/uL [facility] Eosinophils/100 WBC (Bld) 0.1 % [facility] Erythrocyte distribution width (RBC) [Ratio] 15.5 % High 11.5 - 15 % [facility] Hematocrit (Bld) [Volume fraction] 37.3 % 35 - 47 % [facility] Hemoglobin (Bld) [Mass/Vol] 12.3 g/dL 11.7 - 15.5 g/dL [facility] Interpretation and review of laboratory results Abnormal [facility] Lymphocytes (Bld) [#/Vol] 1.1 10*3/uL [facility] Lymphocytes/100 WBC (Bld) 7 % [facility] MCH (RBC) [Entitic mass] 26.9 pg Low 27 - 34 pg [facility] MCHC (RBC) [Mass/Vol] 32.9 g/dL 32 - 3 6 g/dL [facility] MCV (RBC) [Entitic vol] 82 fL 80 - 100 fL [facility] Monocytes (Bld) [#/Vol] 1 10*3/uL [facility] Monocytes/100 WBC (Bld) 6.9 % [facility] Neutrophils (Bld) [#/Vol] 12.9 10*3/uL [facility] Neutrophils/100 WBC (Bld) 85.6 % [facility] Platelet mean volume (Bld) [Entitic vol] 9.5 fL 7 - 12 fL [facility] Platelets (Bld) [#/Vol] 167 10*3/uL [facility] RBC (Bld) [#/Vol] 4.57 10*6/uL [facility] WBC LM Ql (Sput) 15.1 High [facility] CT BRAIN WO CONTon 5 CT BRAIN WO CONT CT BRAIN WO CONT STUDY: CT BRAIN WO CONT INDICATION: s/p crani for tumor removal. TECHNIQUE: * CT head was performed without intravenous contrast using the standard protocol. Automated exposure control was utilized. * All CT scans at this facility use dose modulation, iterative reconstruction, and/or weight based dosing when appropriate to reduce radiation dose to as low as reasonably achievable. FINDINGS: Limited exam due to postoperative and axial only imaging. Postoperative changes of right pterional craniotomy. Tumor debulking is noted. The underlying mass itself is difficult to characterize on this noncontrast CT. Mild to moderate volume of intracranial pneumocephalus. Slight interval decrease in leftward midline shift at the level of the abdomen was, now measuring 1.2 cm, previously measuring 1.5 cm. There is extensive vasogenic edema throughout the right hemisphere which is again noted. Bilateral globes, orbits appear unremarkable. Postoperative changes in the superficial tissues along the right temporal tissues. Mild mucosal thickening in the posterior ethmoid air cells. Mastoid air cells, middle ear cavities appear clear. Atherosclerosis of the carotid siphons. IMPRESSION: * Extensive postoperative changes of right pterional craniotomy and underlying mass resection. Residual tumor is difficult to assess on this noncontrast, portable imaging only technique. * Slight interval decrease in leftward midline shift. * Intracranial pneumocephalus, likely within expected limits for recent surgery. Finalized by Hebert Farrar on 09/23/2024 7:38 PM Normal [facility] CT [facility] CT Head WO contrastOrdered B y: Hebert Farrar on 09-23-2024 [facility] [employer] Work Phone: Clinical Pathology ReviewOrd ered By: Jeremiah Altman on 09-23-2024 Case Report [facility] [employer] Work Phone: Pathology report final diagnosis Narrative x0yqsCZcGKTpdQSvMSPbC LzhwoMpCISrePYfY2Rmst hzBMhtRW6eVF3otAlmfJI qiRZgQLYjTgUug6cwm825 jRZyp9seNNZGEMmiTKDOQ Et4hMyfJ59iu5K8JoowL2 2apEMkNST7OZFoJZLrgDH nWRAtLYQ2WZOqkDBdW3kj SHTvIK3lbrtcCSgaWSbeY YShzNQ1WBDipRMgZ2OqWD ZcBTblWRQrrbv6CoVyHt1 vdGVyeTcyMFxwYXJkXHBs YWluXGZzMjAgUHJvbWluZ X62DZMhgyIxsS0yQcQ2HG VwYVhhj12wBWZcZ47uhML qFHKbwV36dd4ynRnroGyc ymRko2MbKuYymQbrkbOvq qRghLC6iT0hKyyfTDMjBF ltd6UpFdRmxD3elVwfKHz aoNptnZ8mwzWsk9BfyX9p KBY1aXJekLpud1DjeoLxJ 7GosbRgNirlKIO2 [facility] [employer] Work Phone: [facility] Work Phone: ECG 12 leadon 09-23-2024 TRACEMASTERVUE [facility] IONIZED CALCIUMon 09-23-2024 IONIZED CALCIUM - ICAN 4.8 mg/dL Normal 4.5-5.3 Pr [facility] Comment on above: Performed By: #### T [email or web address] #### [facility] ([facility]) [address] [place] [address] VIR Ionized calciumon 09-23-2024 Calcium.ionized ISE [Moles/Vol] 4.8 mg/dL 4.5 - 5.3 mg/dL [facility] Interpretation and review of laboratory results Normal [facility] MAGNESIUMon 09-23-2024 Magnesium [Mass/Vol] 1.8 mg/dL Normal 1.8-2.6 [facility] Comment on above: Performed By: #### T [email or web address] #### [facility] ([facility]) [address] [place] [address] VIR Magnesiumon 09-23-2024 Magnesium [Mass/Vol] 1.8 mg/dL 1.8 - 2 .6 mg/dL [facility] No Panel Informationon 09-23 Interpretation and review of laboratory results Normal [facility] PHOSPHORUSon 09-23-2024 Phosphate [Mass/Vol] 3.0 mg/dL Normal 2.4-4.9 [facility] Comment on above: Result Comment: R-Sp ecimen slightly hemolyzed, results increased Performed By: #### T NIHS1 #### [facility] ([facility]) [address] [place] [address] VIR Phosphoruson 09-23-2024 Phosphate [Mass/Vol] 3 mg/dL 2.4 - 4 .9 mg/dL [facility] Protein electrophoresis, ser umon 09-23-2024 Albumin [Mass/Vol] 2.8 g/dL Low 3.4 - 5.3 g/dL [facility] Alpha 1 globulin Elph [Mass/Vol] 0.6 g/dL High 0.1 - 0.4 g/dL [facility] Alpha 2 globulin Elph [Mass/Vol] 1.2 g/dL High 0.4 - 1.1 g/dL [facility] Beta globulin Elph [Mass/Vol] 1 g/dL 0.5 - 1.2 g/dL [facility] Gamma globulin Elph (Body fld) [Mass/Vol] 0.9 g/dL 0.5 - 1.6 g/dL [facility] Interpretation and review of laboratory results Abnormal [facility] Pathologist interpretation (Bld) [Interp] See Pathology Report [facility] Protein [Mass/Vol] 6.4 g/dL 6.0 - 8.0 g/dL [facility] REPEATED ABORHon 09-23-2024 ABO_INTEP O Normal [facility] Comment on above: Performed By: #### T [email or web address] #### [facility] ([facility]) [address] [place] [address] VIR RH_INTEP Positive Normal [facility] Comment on above: Performed By: #### T [email or web address] #### [facility] ([facility]) [address] [place] [address] VIR X-ray abdomen NG Tube placem ent 1 viewon 09-23-2024 [facility] Radiology Study observation (narrative) [facility] X-ray abdomen NG Tube placem ent 1 viewOrdered By: Sebastian Grayson on 09-23-2024 [facility] Work Phone: XR ABD NG TUBE PLACEMENT 1 V IEWon 09-23-2024 XR ABD NG TUBE PLACEMENT 1 VIEW XR ABD NG TUBE PLACEMENT 1 VIEW EXAM: XR ABD NG TUBE PLACEMENT 1 VIEW CLINICAL INFORMATION: new NG placed. COMPARISON: 09/20/2024 FINDINGS: The gastric tube tip is in the stomach. IMPRESSION: Gastric tube tip in stomach. Finalized by Sebastian Grayson MD on 09/23/2024 5:22 PM Normal [facility] XR Chest [facility]on 09[facility] ([facility] XR Chest Single viewOrdered By: Shen Farooq on 09-23-2024 [facility] Work Phone: BASIC METABOLIC PANELon 05-0 Anion gap [Moles/Vol] 11 mmol/L Normal 5-15 [facility] Comment on above: Performed By: #### C MP #### [facility] ([facility]) [address] [place] [address] VIR Calcium [Mass/Vol] 9.0 mg/dL Normal 8.5-10.5 [facility] Comment on above: Performed By: #### C MP #### [facility] ([facility]) [address] [place] [address] VIR Chloride [Moles/Vol] 110 mmol/L High 98-109 [facility] Comment on above: Performed By: #### C MP #### [facility] ([facility]) [address] [place] [address] VIR CO2 [Moles/Vol] 23 mmol/L Normal 22-32 [facility] Comment on above: Performed By: #### C MP #### [facility] ([facility]) [address] [place] [address] VIR Creatinine [Mass/Vol] 1.01 mg/dL High 0.40-1.00 [facility] Comment on above: Result Comment: METH OD TRACEABLE TO IDMS STANDARD Performed By: #### C MP #### [facility] ([facility]) [address] [place] [address] VIR GFR/1.73 sq M.predicted among non-blacks MDRD (S/P/Bld) [Vol rate/Area] 65 mL/min/{1.73_m2} Normal >=60 [facility] Comment on above: Result Comment: Repo rted eGFR is based on the CKD-EPI 2020 equation that does not use a race coefficient. Performed By: #### C MP #### [facility] ([facility]) [address] [place] [address] VIR Glucose [Mass/Vol] 129 mg/dL High 65-99 [facility] Comment on above: Performed By: #### C MP #### [facility] ([facility]) [address] [place] [address] VIR Potassium [Moles/Vol] 4.4 mmol/L Normal 3.5-5.0 [facility] Comment on above: Performed By: #### C MP #### [facility] ([facility]) [address] [place] [address] VIR Sodium [Moles/Vol] 144 mmol/L Normal 134-146 [facility] Comment on above: Performed By: #### C MP #### [facility] ([facility]) [address] [place] [address] VIR Urea nitrogen [Mass/Vol] 24 mg/dL High 5-23 [facility] Comment on above: Performed By: #### C MP #### [facility] ([facility]) [address] [place] [address] VIR Basic Metabolic PanelOrdered By: Rosenda Hernández on 09-22-2024 Anion gap [Moles/Vol] 11 mmol/L 5 - 15 mmol/L [facility] Calcium [Mass/Vol] 9 mg/dL 8.5 - 10. 5 mg/dL [facility] Chloride [Moles/Vol] 110 mmol/L High 98 - 10 9 mmol/L [facility] CO2 [Moles/Vol] 23 mmol/L 22 - 32 mmol/L [facility] Creatinine [Mass/Vol] 1.01 mg/dL High 0.40 - 1.00 mg/dL [facility] EGFR Non-Race Dependent 65 - PINF P [facility] Glucose [Mass/Vol] 129 mg/dL High 65 - 99 mg/dL [facility] Interpretation and review of laboratory results Abnormal [facility] Potassium [Moles/Vol] 4.4 mmol/L 3.5 - 5.0 mmol/L [facility] Sodium [Moles/Vol] 144 mmol/L 134 - 146 mmol/L [facility] Urea nitrogen [Mass/Vol] 24 mg/dL High 5 - 23 mg/dL [facility] CBC WITH AUTO DIFFERENTIALon 09-22-2024 BASOPHILS ABSOLUTE COUNT (10*3/UL) BY AUTOMATED COUNT 0.0 10*3/uL Normal [facility] Comment on above: Performed By: #### C MP #### [facility] ([facility]) [address] [place] [address] VIR BASOPHILS RELATIVE PERCENT BY AUTOMATED COUNT 0.3 % Normal [facility] Comment on above: Performed By: #### C MP #### [facility] ([facility]) [address] [place] [address] VIR CELLAVISION DIFFERENTIAL TYPE AUTOMATED DIFFERENTIAL Normal [facility] Comment on above: Performed By: #### C MP #### [facility] ([facility]) [address] [place] [address] VIR Eosinophils (Bld) [#/Vol] 0.0 10*3/uL Normal [facility] Comment on above: Performed By: #### C MP #### [facility] ([facility]) [address] [place] [address] VIR EOSINOPHILS RELATIVE PERCENT BY AUTOMATED COUNT 0.0 % Normal [facility] Comment on above: Performed By: #### C MP #### [facility] ([facility]) [address] [place] [address] VIR Erythrocyte distribution width (RBC) [Ratio] 15.5 % High 11.5-15 [facility] Comment on above: Performed By: #### C MP #### [facility] ([facility]) [address] [place] [address] VIR Hematocrit (Bld) [Volume fraction] 38.0 % Normal 35-47 [facility] Comment on above: Performed By: #### C MP #### [facility] ([facility]) [address] [place] [address] VIR Hemoglobin (Bld) [Mass/Vol] 12.3 g/dL Normal 11.7-15.5 [facility] Comment on above: Performed By: #### C MP #### [facility] ([facility]) [address] [place] [address] VIR LYMPHOCYTES ABSOLUTE COUNT (10*3/UL) BY AUTOMATED COUNT 0.9 10*3/uL Normal [facility] Comment on above: Performed By: #### C MP #### [facility] ([facility]) [address] [place] [address] VIR LYMPHOCYTES RELATIVE PERCENT BY AUTOMATED COUNT 6.4 % Normal [facility] Comment on above: Performed By: #### C MP #### [facility] ([facility]) [address] [place] [address] VIR MCH (RBC) [Entitic mass] 27.0 pg Normal 27-34 [facility] Comment on above: Performed By: #### C MP #### [facility] ([facility]) [address] [place] [address] VIR MCHC (RBC) [Mass/Vol] 32.5 g/dL Normal 32-36 [facility] Comment on above: Performed By: #### C MP #### [facility] ([facility]) [address] [place] [address] VIR MCV (RBC) [Entitic vol] 83 fL Normal 80-100 [facility] Comment on above: Performed By: #### C MP #### [facility] ([facility]) [address] [place] [address] VIR MONOCYTES ABSOLUTE COUNT (10*3/UL) BY AUTOMATED COUNT 0.8 10*3/uL Normal [facility] Comment on above: Performed By: #### C MP #### [facility] ([facility]) [address] [place] [address] VIR MONOCYTES RELATIVE PERCENT BY AUTOMATED COUNT 6.0 % Normal [facility] Comment on above: Performed By: #### C MP #### [facility] ([facility]) [address] [place] [address] VIR NEUTROPHILS ABSOLUTE COUNT BY AUTOMATED COUNT 11.9 10*3/uL Normal [facility] Comment on above: Performed By: #### C MP #### [facility] ([facility]) [address] [place] [address] VIR NEUTROPHILS RELATIVE PERCENT BY AUTOMATED COUNT 87.3 % Normal [facility] Comment on above: Performed By: #### C MP #### [facility] ([facility]) [address] [place] [address] VIR Platelet mean volume (Bld) [Entitic vol] 9.6 fL Normal 7-12 [facility] Comment on above: Performed By: #### C MP #### [facility] ([facility]) [address] [place] [address] VIR Platelets (Bld) [#/Vol] 167 10*3/uL Normal 150-450 [facility] Comment on above: Performed By: #### C MP #### [facility] ([facility]) [address] [place] [address] VIR RBC COUNT 4.57 X10E12/L Normal 3.8-5.2 [facility] Comment on above: Performed By: #### C MP #### [facility] ([facility]) [address] [place] [address] VIR WBC (Bld) [#/Vol] 13.7 10*3/uL High 4-11 [facility] Comment on above: Performed By: #### C MP #### [facility] ([facility]) [address] [place] [address] VIR CBC auto differentialon 05-0 Basophils (Bld) [#/Vol] 0 10*3/uL P [facility] Basophils/100 WBC (Bld) 0.3 % P [facility] Differential cell count method Nom (Bld) AUTOMATED DIFFERENTIAL [facility] Eosinophils (Bld) [#/Vol] 0 10*3/uL [facility] Eosinophils/100 WBC (Bld) 0 % [facility] Erythrocyte distribution width (RBC) [Ratio] 15.5 % High 11.5 - 15 % [facility] Hematocrit (Bld) [Volume fraction] 38 % 35 - 47 % [facility] Hemoglobin (Bld) [Mass/Vol] 12.3 g/dL 11.7 - 15.5 g/dL [facility] Interpretation and review of laboratory results Abnormal [facility] Lymphocytes (Bld) [#/Vol] 0.9 10*3/uL [facility] Lymphocytes/100 WBC (Bld) 6.4 % [facility] MCH (RBC) [Entitic mass] 27 pg 27 - 34 pg [facility] MCHC (RBC) [Mass/Vol] 32.5 g/dL 32 - 3 6 g/dL [facility] MCV (RBC) [Entitic vol] 83 fL 80 - 100 fL [facility] Monocytes (Bld) [#/Vol] 0.8 10*3/uL [facility] Monocytes/100 WBC (Bld) 6 % P [facility] Neutrophils (Bld) [#/Vol] 11.9 10*3/uL [facility] Neutrophils/100 WBC (Bld) 87.3 % [facility] Platelet mean volume (Bld) [Entitic vol] 9.6 fL 7 - 12 fL [facility] Platelets (Bld) [#/Vol] 167 10*3/uL [facility] RBC (Bld) [#/Vol] 4.57 10*6/uL [facility] WBC LM Ql (Sput) 13.7 High [facility] Cardiac echo study Procedure Ordered By: Nava Gamez on 09-22-2024 Aortic root 3 cm [facility] Work Phone: Aortic valve Mean systole pressure gradient by US.doppler derived full Bernoulli 4 mmHg [employer] Work Phone: Aortic valve Orifice area by US 3.39 [employer] Work Phone: Aortic valve Peak systolic flow by US.doppler 132 cm/s [employer] Work Phone: AV peak gradient 6.97 mmHg [employer] Work Phone: AV Velocity Ratio 0.98 [employer] Work Phone: AV VTI 28.3 cm [employer] Work Phone: E wave deceleration time 369 msec [employer] Work Phone: E/A ratio 0.5 [employer] Work Phone: Energy loss index 16.04 [employer] Work Phone: FS 46 % 28 - 44 % [employer] Work Phone: Interventricular Septum Diastolic Thickness by 2D 10 cm [employer] Work Phone: IVS 1 cm 0.6 - 1.1 cm [employer] Work Phone: LA size 3.2 cm [employer] Work Phone: LA volume 66.4 cm3 [employer] Work Phone: LA Volume Index 28.1 mL/m2 [employer] Work Phone: Left Ventricle Mass [id number] g [employer] Work Phone: LV ESV A2C 53.2 mL [employer] Work Phone: LV ESV A4C 78.5 mL [employer] Work Phone: LV RWT 2D 56.41 [employer] Work Phone: LVIDd 3.9 cm 7.16 - 9.95 cm [employer] Work Phone: LVIDs 2.1 cm 4.15 - 6.28 cm [employer] Work Phone: LVOT diameter 2.1 cm [employer] Work Phone: LVOT peak dayday 1.35 m/s [facility] Work Phone: LVOT peak VTI 27.7 cm [employer] Work Phone: LVOT stroke volume 95.94 ml [employer] Work Phone: Mitral Valve Max Velocity 2.24 cm/s [employer] Work Phone: MV mean gradient 10 mmHg [employer] Work Phone: MV Peak A Dayday 172 cm/s [employer] Work Phone: MV Peak E Dayday 86.8 cm/s [employer] Work Phone: MV peak gradient 20.07 mmHg [employer] Work Phone: MV pressure 1/2 time 108 ms [employer] Work Phone: MV TDI E' (medial) 3.92 cm/s [facility] Work Phone: MV valve area by continuity eq 1.35 [facility] Work Phone: MV valve area p 1/2 method 2.04 cm2 [employer] Work Phone: MV VTI 71 cm [employer] Work Phone: PV peak gradient 3.41 mmHg [employer] Work Phone: PW 1.1 cm 0.6 - 1.1 cm [employer] Work Phone: RV diastolic dimension (basal) 38 mm [employer] Work Phone: TAPSE 2.39 cm [employer] Work Phone: TDI 3.81 cm/s [employer] Work Phone: Valve area - Index 1.4 [employer] Work Phone: ZLVIDD -7.72 [facility] Work Phone: ZLVIDS -7.02 [employer] Work Phone: [facility] [employer] Work Phone: Cardiac echo study Procedure on 09-22-2024 XCELERA Radiology Study observation (narrative) [facility] [employer] ELECTROLYTE PANELon 09-23-19 25 Anion gap [Moles/Vol] 11 mmol/L Normal 5-15 [facility] Comment on above: Performed By: #### C MP #### [facility] ([facility]) [address] [place] [address] VIR Chloride [Moles/Vol] 109 mmol/L Normal 98-109 [facility] Comment on above: Performed By: #### C MP #### [facility] ([facility]) [address] [place] [address] VIR CO2 [Moles/Vol] 22 mmol/L Normal 22-32 [facility] Comment on above: Performed By: #### C MP #### [facility] ([facility]) [address] [place] [address] VIR Potassium [Moles/Vol] 4.5 mmol/L Normal 3.5-5.0 [facility] Comment on above: Performed By: #### C MP #### [facility] ([facility]) [address] [place] [address] VIR Sodium [Moles/Vol] 142 mmol/L Normal 134-146 [facility] Comment on above: Performed By: #### C MP #### [facility] ([facility]) [address] [place] [address] VIR Anion gap [Moles/Vol] 10 mmol/L Normal 5-15 [facility] Comment on above: Performed By: #### C MP #### [facility] ([facility]) [address] [place] [address] VIR Chloride [Moles/Vol] 110 mmol/L High 98-109 [facility] Comment on above: Performed By: #### C MP #### [facility] ([facility]) [address] [place] [address] VIR CO2 [Moles/Vol] 23 mmol/L Normal 22-32 [facility] Comment on above: Performed By: #### C MP #### [facility] ([facility]) [address] [place] [address] VIR Potassium [Moles/Vol] 4.1 mmol/L Normal 3.5-5.0 [facility] Comment on above: Performed By: #### C MP #### [facility] ([facility]) [address] [place] [address] VIR Sodium [Moles/Vol] 143 mmol/L Normal 134-146 [facility] Comment on above: Performed By: #### C MP #### [facility] ([facility]) [address] [place] [address] VIR Electrolyte panelOrdered By: Leif Bazan on 09-22-2024 Anion gap [Moles/Vol] 11 mmol/L 5 - 15 mmol/L [facility] Chloride [Moles/Vol] 109 mmol/L 98 - 10 9 mmol/L [facility] CO2 [Moles/Vol] 22 mmol/L 22 - 32 mmol/L [facility] Interpretation and review of laboratory results Normal [facility] Potassium [Moles/Vol] 4.5 mmol/L 3.5 - 5.0 mmol/L [facility] Sodium [Moles/Vol] 142 mmol/L 134 - 146 mmol/L [facility] Electrolyte panelOrdered By: Mao Toro on 09-22-2024 Anion gap [Moles/Vol] 10 mmol/L 5 - 15 mmol/L [facility] Chloride [Moles/Vol] 110 mmol/L High 98 - 10 9 mmol/L [facility] CO2 [Moles/Vol] 23 mmol/L 22 - 32 mmol/L [facility] Interpretation and review of laboratory results Abnormal [facility] Potassium [Moles/Vol] 4.1 mmol/L 3.5 - 5.0 mmol/L [facility] Sodium [Moles/Vol] 143 mmol/L 134 - 146 mmol/L [facility] IONIZED CALCIUMon 09-22-2024 IONIZED CALCIUM - ICAN 4.6 mg/dL Normal 4.5-5.3 [facility] Comment on above: Performed By: #### C MP #### [facility] ([facility]) [address] [place] [address] VIR Ionized calciumOrdered By: Jose Vásquez on 09-22-2024 Calcium.ionized ISE [Moles/Vol] 4.6 mg/dL 4.5 - 5.3 mg/dL [facility] Interpretation and review of laboratory results Normal [facility] MAGNESIUMon 09-22-2024 Magnesium [Mass/Vol] 1.9 mg/dL Normal 1.8-2.6 [facility] Comment on above: Performed By: #### C MP #### [facility] ([facility]) [address] [place] [address] VIR Magnesiumon 09-22-2024 Magnesium [Mass/Vol] 1.9 mg/dL 1.8 - 2 .6 mg/dL [facility] No Panel Informationon 09-22 Interpretation and review of laboratory results Normal [facility] PHOSPHORUSon 09-22-2024 Phosphate [Mass/Vol] 3.3 mg/dL Normal 2.4-4.9 [facility] Comment on above: Performed By: #### C MP #### [facility] ([facility]) [address] [place] [address] VIR Phosphoruson 09-22-2024 Phosphate [Mass/Vol] 3.3 mg/dL 2.4 - 4 .9 mg/dL [facility] TYPE AND SCREENon 09-22-2024 ABO_INTEP O Normal [facility] Comment on above: Performed By: #### T [email or web address] #### [facility] ([facility]) [address] [place] [address] VIR RH_INTEP Positive Normal [facility] Comment on above: Performed By: #### T NIHS1 #### [facility] ([facility]) [address] [facility] [place] [address] VIR Type and screen(includes ind irect sinan)on 09-22-2024 ABO O [facility] Rh Nom (Bld) Positive [facility] VANCOMYCIN, RANDOMon 025 VANCOMYCIN 16.5 ug/mL Normal 5.0-40.0 [facility] Comment on above: Order Comment: Peak 30-40 ug/mLTrough 5-20 ug/ml Performed By: #### C MP #### [facility] ([facility]) [address] [place] [address] VIR Vancomycin, randomon 025 Vancomycin [Susc] 16.5 ug/mL 5.0 - 40.0 ug/mL [facility] MAGI Screen w/ Reflexon 09-21 Interpretation and review of laboratory results Normal [facility] Nuclear Ab IA Ql (S) Negative Negative [facility] BASIC METABOLIC PANELon Anion gap [Moles/Vol] 10 mmol/L Normal 5-15 [facility] Comment on above: Performed By: #### L ACTS #### [facility] ([facility]) [address] [place] [address] VIR Calcium [Mass/Vol] 9.2 mg/dL Normal 8.5-10.5 [facility] Comment on above: Performed By: #### L ACTS #### [facility] ([facility]) [address] [place] [address] VIR Chloride [Moles/Vol] 114 mmol/L High 98-109 [facility] Comment on above: Performed By: #### L ACTS #### [facility] ([facility]) [address] [place] [address] VIR CO2 [Moles/Vol] 24 mmol/L Normal 22-32 [facility] Comment on above: Performed By: #### L ACTS #### [facility] ([facility]) [address] [place] [address] VIR Creatinine [Mass/Vol] 1.27 mg/dL High 0.40-1.00 [facility] Comment on above: Result Comment: METH OD TRACEABLE TO IDMS STANDARD Performed By: #### L ACTS #### [facility] ([facility]) [address] [place] [address] VIR GFR/1.73 sq M.predicted among non-blacks MDRD (S/P/Bld) [Vol rate/Area] 50 mL/min/{1.73_m2} Low >=60 [facility] Comment on above: Result Comment: Repo rted eGFR is based on the CKD-EPI 2020 equation that does not use a race coefficient. Performed By: #### L ACTS #### [facility] ([facility]) [address] [place] [address] VIR Glucose [Mass/Vol] 127 mg/dL High 65-99 [facility] Comment on above: Performed By: #### L ACTS #### [facility] ([facility]) [address] [place] [address] VIR Potassium [Moles/Vol] 3.9 mmol/L Normal 3.5-5.0 [facility] Comment on above: Performed By: #### L ACTS #### [facility] ([facility]) [address] [place] [address] VIR Sodium [Moles/Vol] 148 mmol/L High 134-146 [facility] Comment on above: Performed By: #### L ACTS #### [facility] ([facility]) [address] [place] [address] VIR Urea nitrogen [Mass/Vol] 24 mg/dL High 5-23 [facility] Comment on above: Performed By: #### L ACTS #### [facility] ([facility]) [address] [place] [address] VIR Bacteria identified Aer cx N om (Bld)Ordered By: Maicol Mg on 09-21-2024 Bacteria identified Aer cx Nom (Unsp spec) Negative Abnormal [facility] Interpretation and review of laboratory results Abnormal [facility] Microscopic observation Gram stain Nom (Unsp spec) Positive Abnormal [facility] Basic Metabolic Panelon Anion gap [Moles/Vol] 10 mmol/L 5 - 15 mmol/L [facility] Calcium [Mass/Vol] 9.2 mg/dL 8.5 - 10. 5 mg/dL [facility] Chloride [Moles/Vol] 114 mmol/L High 98 - 10 9 mmol/L [facility] CO2 [Moles/Vol] 24 mmol/L 22 - 32 mmol/L [facility] Creatinine [Mass/Vol] 1.27 mg/dL High 0.40 - 1.00 mg/dL [facility] EGFR Non-Race Dependent 50 Low - PINF P [facility] Glucose [Mass/Vol] 127 mg/dL High 65 - 99 mg/dL [facility] Interpretation and review of laboratory results Abnormal [facility] Potassium [Moles/Vol] 3.9 mmol/L 3.5 - 5.0 mmol/L [facility] Sodium [Moles/Vol] 148 mmol/L High 134 - 146 mmol/L [facility] Urea nitrogen [Mass/Vol] 24 mg/dL High 5 - 23 mg/dL [facility] CBC WITH AUTO DIFFERENTIALon 09-21-2024 BASOPHILS ABSOLUTE COUNT (10*3/UL) BY AUTOMATED COUNT 0.1 10*3/uL Normal [facility] Comment on above: Performed By: #### A MMON #### [facility] ([facility]) [address] [place] [address] VIR BASOPHILS RELATIVE PERCENT BY AUTOMATED COUNT 0.7 % Normal [facility] Comment on above: Performed By: #### A MMON #### [facility] ([facility]) [address] [place] [address] VIR CELLAVISION DIFFERENTIAL TYPE AUTOMATED DIFFERENTIAL [facility] Comment on above: Performed By: #### A MMON #### [facility] ([facility]) [address] [place] [address] VIR Eosinophils (Bld) [#/Vol] 0.0 10*3/uL Normal [facility] Comment on above: Performed By: #### A MMON #### [facility] ([facility]) [address] [place] [address] VIR EOSINOPHILS RELATIVE PERCENT BY AUTOMATED COUNT 0.0 % [facility] Comment on above: Performed By: #### A MMON #### [facility] ([facility]) [address] [place] [address] VIR Erythrocyte distribution width (RBC) [Ratio] 15.1 % High 11.5-15 [facility] Comment on above: Performed By: #### A MMON #### [facility] ([facility]) [address] [place] [address] VIR Hematocrit (Bld) [Volume fraction] 33.6 % Low 35-47 [facility] Comment on above: Performed By: #### A MMON #### [facility] ([facility]) [address] [place] [address] VIR Hemoglobin (Bld) [Mass/Vol] 11.0 g/dL Low 11.7-15.5 [facility] Comment on above: Performed By: #### A MMON #### [facility] ([facility]) [address] [place] [address] VIR LYMPHOCYTES ABSOLUTE COUNT (10*3/UL) BY AUTOMATED COUNT 0.8 10*3/uL [facility] Comment on above: Performed By: #### A MMON #### [facility] ([facility]) [address] [place] [address] VIR LYMPHOCYTES RELATIVE PERCENT BY AUTOMATED COUNT 6.2 % Normal [facility] Comment on above: Performed By: #### A MMON #### [facility] ([facility]) [address] [place] [address] VIR MCH (RBC) [Entitic mass] 27.1 pg Normal 27-34 [facility] Comment on above: Performed By: #### A MMON #### [facility] ([facility]) [address] [place] [address] VIR MCHC (RBC) [Mass/Vol] 32.6 g/dL Normal 32-36 [facility] Comment on above: Performed By: #### A MMON #### [facility] ([facility]) [address] [place] [address] VIR MCV (RBC) [Entitic vol] 83 fL Normal 80-100 [facility] Comment on above: Performed By: #### A MMON #### [facility] ([facility]) [address] [place] [address] VIR MONOCYTES ABSOLUTE COUNT (10*3/UL) BY AUTOMATED COUNT 0.6 10*3/uL Normal [facility] Comment on above: Performed By: #### A MMON #### [facility] ([facility]) [address] [place] [address] VIR MONOCYTES RELATIVE PERCENT BY AUTOMATED COUNT 4.8 % Normal [facility] Comment on above: Performed By: #### A MMON #### [facility] ([facility]) [address] [place] [address] VIR NEUTROPHILS ABSOLUTE COUNT BY AUTOMATED COUNT 10.8 10*3/uL Normal [facility] Comment on above: Performed By: #### A MMON #### [facility] ([facility]) [address] [place] [address] VIR NEUTROPHILS RELATIVE PERCENT BY AUTOMATED COUNT 88.3 % Normal [facility] Comment on above: Performed By: #### A MMON #### [facility] ([facility]) [address] [place] [address] VIR Platelet mean volume (Bld) [Entitic vol] 9.2 fL Normal 7-12 [facility] Comment on above: Performed By: #### A MMON #### [facility] ([facility]) [address] [place] [address] VIR Platelets (Bld) [#/Vol] 183 10*3/uL Normal 150-450 [facility] Comment on above: Performed By: #### A MMON #### [facility] ([facility]) [address] [place] [address] VIR RBC COUNT 4.05 X10E12/L Normal 3.8-5.2 [facility] Comment on above: Performed By: #### A MMON #### [facility] ([facility]) [address] [place] [address] VIR WBC (Bld) [#/Vol] 12.2 10*3/uL High 4-11 [facility] Comment on above: Performed By: #### A MMON #### [facility] ([facility]) [address] [place] [address] VIR CBC auto differentialon 05-0 Basophils (Bld) [#/Vol] 0.1 10*3/uL [facility] Basophils/100 WBC (Bld) 0.7 % P [facility] Differential cell count method Nom (Bld) AUTOMATED DIFFERENTIAL [facility] Eosinophils (Bld) [#/Vol] 0 10*3/uL [facility] Eosinophils/100 WBC (Bld) 0 % [facility] Erythrocyte distribution width (RBC) [Ratio] 15.1 % High 11.5 - 15 % [facility] Hematocrit (Bld) [Volume fraction] 33.6 % Low 35 - 47 % [facility] Hemoglobin (Bld) [Mass/Vol] 11 g/dL Low 11.7 - 15.5 g/dL [facility] Interpretation and review of laboratory results Abnormal [facility] Lymphocytes (Bld) [#/Vol] 0.8 10*3/uL [facility] Lymphocytes/100 WBC (Bld) 6.2 % [facility] MCH (RBC) [Entitic mass] 27.1 pg 27 - 34 pg [facility] MCHC (RBC) [Mass/Vol] 32.6 g/dL 32 - 3 6 g/dL [facility] MCV (RBC) [Entitic vol] 83 fL 80 - 100 fL [facility] Monocytes (Bld) [#/Vol] 0.6 10*3/uL [facility] Monocytes/100 WBC (Bld) 4.8 % P [facility] Neutrophils (Bld) [#/Vol] 10.8 10*3/uL [facility] Neutrophils/100 WBC (Bld) 88.3 % [facility] Platelet mean volume (Bld) [Entitic vol] 9.2 fL 7 - 12 fL [facility] Platelets (Bld) [#/Vol] 183 10*3/uL [facility] RBC (Bld) [#/Vol] 4.05 10*6/uL [facility] WBC LM Ql (Sput) 12.2 High [facility] ELECTROLYTE PANELon 09-22-19 25 Anion gap [Moles/Vol] 11 mmol/L Normal 5-15 [facility] Comment on above: Performed By: #### C MP #### [facility] ([facility]) [address] [place] [address] VIR Chloride [Moles/Vol] 113 mmol/L High 98-109 [facility] Comment on above: Performed By: #### C MP #### [facility] ([facility]) [address] [place] [address] VIR CO2 [Moles/Vol] 22 mmol/L Normal 22-32 [facility] Comment on above: Performed By: #### C MP #### [facility] ([facility]) [address] [place] [address] VIR Potassium [Moles/Vol] 4.2 mmol/L Normal 3.5-5.0 [facility] Comment on above: Performed By: #### C MP #### [facility] ([facility]) [address] [place] [address] VIR Sodium [Moles/Vol] 146 mmol/L Normal 134-146 [facility] Comment on above: Performed By: #### C MP #### [facility] ([facility]) [address] [place] [address] VIR Anion gap [Moles/Vol] 9 mmol/L Normal 5-15 [facility] Comment on above: Performed By: #### L ACTS #### [facility] ([facility]) [address] [place] [address] VIR Chloride [Moles/Vol] 112 mmol/L High 98-109 [facility] Comment on above: Performed By: #### L ACTS #### [facility] ([facility]) [address] [place] [address] VIR CO2 [Moles/Vol] 24 mmol/L Normal 22-32 [facility] Comment on above: Performed By: #### L ACTS #### [facility] ([facility]) [address] [place] [address] VIR Potassium [Moles/Vol] 4.1 mmol/L Normal 3.5-5.0 [facility] Comment on above: Performed By: #### L ACTS #### [facility] ([facility]) [address] [place] [address] VIR Sodium [Moles/Vol] 145 mmol/L Normal 134-146 [facility] Comment on above: Performed By: #### L ACTS #### [facility] ([facility]) [address] [place] [address] VIR Electrolyte panelOrdered By: Tk Keene on 09-21-2024 Anion gap [Moles/Vol] 11 mmol/L 5 - 15 mmol/L [facility] Chloride [Moles/Vol] 113 mmol/L High 98 - 10 9 mmol/L [facility] CO2 [Moles/Vol] 22 mmol/L 22 - 32 mmol/L [facility] Interpretation and review of laboratory results Abnormal [facility] Potassium [Moles/Vol] 4.2 mmol/L 3.5 - 5.0 mmol/L [facility] Sodium [Moles/Vol] 146 mmol/L 134 - 146 mmol/L [facility] Electrolyte panelOrdered By: Alexa Carrero on 09-21-2024 Anion gap [Moles/Vol] 9 mmol/L 5 - 15 mmol/L [facility] Chloride [Moles/Vol] 112 mmol/L High 98 - 10 9 mmol/L [facility] CO2 [Moles/Vol] 24 mmol/L 22 - 32 mmol/L [facility] Interpretation and review of laboratory results Abnormal [facility] Potassium [Moles/Vol] 4.1 mmol/L 3.5 - 5.0 mmol/L [facility] Sodium [Moles/Vol] 145 mmol/L 134 - 146 mmol/L [facility] Glomerular basement membrane IgG ABon 09-21-2024 Glomerular basement membrane IgG Qn (S) NINF [facility] IONIZED CALCIUMon 09-21-2024 IONIZED CALCIUM - ICAN 5.1 mg/dL Normal 4.5-5.3 [facility] Comment on above: Performed By: #### A MMON #### [facility] ([facility]) [address] [place] [address] VIR IONIZED MAGNESIUMon 09-22-19 Magnesium [Moles/Vol] 0.61 mmol/L Normal 0.45-0.74 [facility] Comment on above: Performed By: #### L ACTS #### [facility] ([facility]) [address] [place] [address] VIR Ionized calciumon 09-21-2024 Calcium.ionized ISE [Moles/Vol] 5.1 mg/dL 4.5 - 5.3 mg/dL [facility] [facility] Interpretation and review of laboratory results Normal [facility] Ionized magnesiumon 09-22-19 Interpretation and review of laboratory results Normal [facility] Magnesium Ionized ISE (Bld) [Moles/Vol] 0.61 mmol/L 0.45 - 0.74 mmol/L [facility] MAGNESIUMon 09-21-2024 Magnesium [Mass/Vol] 1.8 mg/dL Normal 1.8-2.6 [facility] Comment on above: Performed By: #### A MMON #### [facility] ([facility]) [address] [place] [address] VIR Magnesiumon 09-21-2024 Magnesium [Mass/Vol] 1.8 mg/dL 1.8 - 2 .6 mg/dL [facility] Myeloperoxidase ABon 025 Myeloperoxidase Ab Qn (S) [facility] No Panel Informationon 09-21 Interpretation and review of laboratory results Normal [facility] Interpretation and review of laboratory results Normal [facility] PHOSPHORUSon 09-21-2024 Phosphate [Mass/Vol] 2.7 mg/dL Normal 2.4-4.9 [facility] Comment on above: Performed By: #### L ACTS #### [facility] ([facility]) [address] [place] [address] VIR Phosphoruson 09-21-2024 Phosphate [Mass/Vol] 2.7 mg/dL 2.4 - 4 .9 mg/dL [facility] Proteinase 3 AB PR3on 2024 Proteinase 3 Ab Qn (S) [facility] VANCOMYCIN, RANDOMon 025 VANCOMYCIN 16.0 ug/mL Normal 5.0-40.0 [facility] Comment on above: Order Comment: Resul t did not trigger repeat Lactate, re-order if needed. Performed By: #### L ACTS #### [facility] ([facility]) [address] [place] [address] VIR Vancomycin, randomon 025 Interpretation and review of laboratory results Normal [facility] Vancomycin [Susc] 16 ug/mL 5.0 - 40.0 ug/mL [facility] BASIC METABOLIC PANELon 05-0 Anion gap [Moles/Vol] 11 mmol/L Normal 5-15 [facility] Comment on above: Performed By: #### N UM #### [facility] ([facility]) [address] [place] [address] VIR Calcium [Mass/Vol] 9.3 mg/dL Normal 8.5-10.5 [facility] Comment on above: Performed By: #### N UM #### [facility] ([facility]) [address] [place] [address] VIR Chloride [Moles/Vol] 119 mmol/L High 98-109 [facility] Comment on above: Performed By: #### N UM #### [facility] ([facility]) [address] [place] [address] VIR CO2 [Moles/Vol] 24 mmol/L Normal 22-32 [facility] Comment on above: Performed By: #### N UM #### [facility] ([facility]) [address] [place] [address] VIR Creatinine [Mass/Vol] 2.60 mg/dL High 0.40-1.00 [facility] Comment on above: Result Comment: METH OD TRACEABLE TO IDMS STANDARD Performed By: #### N UM #### [facility] ([facility]) [address] [place] [address] VIR GFR/1.73 sq M.predicted among non-blacks MDRD (S/P/Bld) [Vol rate/Area] 21 mL/min/{1.73_m2} Low >=60 [facility] Comment on above: Result Comment: Repo rted eGFR is based on the CKD-EPI 2020 equation that does not use a race coefficient. Performed By: #### N UM #### [facility] ([facility]) [address] [place] [address] VIR Glucose [Mass/Vol] 149 mg/dL High 65-99 [facility] Comment on above: Performed By: #### N UM #### [facility] ([facility]) [address] [place] [address] VIR Potassium [Moles/Vol] 4.0 mmol/L Normal 3.5-5.0 [facility] Comment on above: Performed By: #### N UM #### [facility] ([facility]) [address] [place] [address] VIR Sodium [Moles/Vol] 154 mmol/L High 134-146 [facility] Comment on above: Performed By: #### N UM #### [facility] ([facility]) [address] [place] [address] VIR Urea nitrogen [Mass/Vol] 38 mg/dL High 5-23 [facility] Comment on above: Performed By: #### N UM #### [facility] ([facility]) [address] [place] [address] VIR BLOOD CULTUREon 09-20-2024 Bacteria identified Cx Nom (Bld) CULTURE RESULTS NO GROWTH 5 DAYS Normal [facility] Comment on above: Order Comment: Resul t did not trigger repeat Lactate, re-order if needed. Performed By: #### L ACTS #### [facility] ([facility]) [address] [place] [address] VIR Bacteria identified Cx Nom (Bld) CULTURE RESULTS NO GROWTH 5 DAYS Normal [facility] Comment on above: Order Comment: *SIRS Criteria: (must display 2 without other explanation)-Temperature < 36 or >38-Pulse >90-Resp rate >20-WBC less than 4K or greater than 12KRepeat blood cultures not needed:-To document that a blood culture is a contaminant when 1 of 2 bottles is positive for a common contaminant (already listed in Epic with the culture result)-To document clearance of gram negative bacteremia in patients with suspected urinary source who are improvingSuboptimal volume of blood collected, Results may be affected. Performed By: #### C #### [facility] ([facility]) [address] [place] [address] VIR Basic Metabolic Panelon 05- Anion gap [Moles/Vol] 11 mmol/L 5 - 15 mmol/L [facility] Calcium [Mass/Vol] 9.3 mg/dL 8.5 - 10. 5 mg/dL [facility] Chloride [Moles/Vol] 119 mmol/L High 98 - 10 9 mmol/L [facility] CO2 [Moles/Vol] 24 mmol/L 22 - 32 mmol/L [facility] Creatinine [Mass/Vol] 2.6 mg/dL High 0.40 - 1.00 mg/dL [facility] EGFR Non-Race Dependent 21 Low - PINF P [facility] Glucose [Mass/Vol] 149 mg/dL High 65 - 99 mg/dL [facility] Interpretation and review of laboratory results Abnormal [facility] Potassium [Moles/Vol] 4 mmol/L 3.5 - 5.0 mmol/L [facility] Sodium [Moles/Vol] 154 mmol/L High 134 - 146 mmol/L [facility] Urea nitrogen [Mass/Vol] 38 mg/dL High 5 - 23 mg/dL [facility] CBC WITH AUTO DIFFERENTIALon 09-20-2024 BASOPHILS ABSOLUTE COUNT (10*3/UL) BY AUTOMATED COUNT 0.0 10*3/uL Normal [facility] Comment on above: Performed By: #### N UM #### [facility] ([facility]) [address] [place] [address] VIR BASOPHILS RELATIVE PERCENT BY AUTOMATED COUNT 0.5 % Normal [facility] Comment on above: Performed By: #### N UM #### [facility] ([facility]) [address] [place] [address] VIR CELLAVISION DIFFERENTIAL TYPE AUTOMATED DIFFERENTIAL Normal [facility] Comment on above: Performed By: #### N UM #### [facility] ([facility]) [address] [place] [address] VIR Eosinophils (Bld) [#/Vol] 0.0 10*3/uL Normal [facility] Comment on above: Performed By: #### N UM #### [facility] ([facility]) [address] [place] [address] VIR EOSINOPHILS RELATIVE PERCENT BY AUTOMATED COUNT 0.0 % Normal [facility] Comment on above: Performed By: #### N UM #### [facility] ([facility]) [address] [place] [address] VIR Erythrocyte distribution width (RBC) [Ratio] 15.6 % High 11.5-15 [facility] Comment on above: Performed By: #### N UM #### [facility] ([facility]) [address] [place] [address] VIR Hematocrit (Bld) [Volume fraction] 33.5 % Low 35-47 [facility] Comment on above: Performed By: #### N UM #### [facility] ([facility]) [address] [place] [address] VIR Hemoglobin (Bld) [Mass/Vol] 11.0 g/dL Low 11.7-15.5 [facility] Comment on above: Performed By: #### N UM #### [facility] ([facility]) [address] [place] [address] VIR LYMPHOCYTES ABSOLUTE COUNT (10*3/UL) BY AUTOMATED COUNT 0.5 10*3/uL Normal [facility] Comment on above: Performed By: #### N UM #### [facility] ([facility]) [address] [place] [address] VIR LYMPHOCYTES RELATIVE PERCENT BY AUTOMATED COUNT 5.6 % Normal [facility] Comment on above: Performed By: #### N UM #### [facility] ([facility]) [address] [place] [address] VIR MCH (RBC) [Entitic mass] 26.9 pg Low 27-34 [facility] Comment on above: Performed By: #### N UM #### [facility] ([facility]) [address] [place] [address] VIR MCHC (RBC) [Mass/Vol] 32.8 g/dL Normal 32-36 [facility] Comment on above: Performed By: #### N UM #### [facility] ([facility]) [address] [facility] [place] [address] VIR MCV (RBC) [Entitic vol] 82 fL Normal 80-100 [facility] Comment on above: Performed By: #### N UM #### [facility] ([facility]) [address] [facility] [place] [address] VIR MONOCYTES ABSOLUTE COUNT (10*3/UL) BY AUTOMATED COUNT 0.4 10*3/uL Normal [facility] Comment on above: Performed By: #### N UM #### [facility] ([facility]) [address] [facility] [place] [address] VIR MONOCYTES RELATIVE PERCENT BY AUTOMATED COUNT 4.3 % Normal [facility] Comment on above: Performed By: #### N UM #### [facility] ([facility]) [address] [facility] [place] [address] VIR NEUTROPHILS ABSOLUTE COUNT BY AUTOMATED COUNT 8.0 10*3/uL Normal [facility] Comment on above: Performed By: #### N UM #### [facility] ([facility]) [address] [place] [address] VIR NEUTROPHILS RELATIVE PERCENT BY AUTOMATED COUNT 89.6 % Normal [facility] Comment on above: Performed By: #### N UM #### [facility] ([facility]) [address] [facility] [place] [address] VIR Platelet mean volume (Bld) [Entitic vol] 9.0 fL Normal 7-12 [facility] Comment on above: Performed By: #### N UM #### [facility] ([facility]) [address] [place] [address] VIR Platelets (Bld) [#/Vol] 190 10*3/uL Normal 150-450 [facility] Comment on above: Performed By: #### N UM #### [facility] ([facility]) [address] [place] [address] VIR RBC COUNT 4.08 [id number]/L Normal 3.8-5.2 [facility] Comment on above: Performed By: #### N UM #### [facility] ([facility]) [address] [place] [address] VIR WBC (Bld) [#/Vol] 8.9 10*3/uL Normal 4-11 [facility] Comment on above: Performed By: #### N UM #### [facility] ([facility]) [address] [place] [address] VIR CBC auto differentialon 05-0 Basophils (Bld) [#/Vol] 0 10*3/uL [facility] Basophils/100 WBC (Bld) 0.5 % [facility] Differential cell count method Nom (Bld) AUTOMATED DIFFERENTIAL [facility] Eosinophils (Bld) [#/Vol] 0 10*3/uL [facility] Eosinophils/100 WBC (Bld) 0 % [facility] Erythrocyte distribution width (RBC) [Ratio] 15.6 % High 11.5 - 15 % [facility] Hematocrit (Bld) [Volume fraction] 33.5 % Low 35 - 47 % [facility] Hemoglobin (Bld) [Mass/Vol] 11 g/dL Low 11.7 - 15.5 g/dL [facility] Interpretation and review of laboratory results Abnormal [facility] Lymphocytes (Bld) [#/Vol] 0.5 10*3/uL [facility] Lymphocytes/100 WBC (Bld) 5.6 % [facility] MCH (RBC) [Entitic mass] 26.9 pg Low 27 - 34 pg [facility] MCHC (RBC) [Mass/Vol] 32.8 g/dL 32 - 3 6 g/dL [facility] MCV (RBC) [Entitic vol] 82 fL 80 - 100 fL [facility] Monocytes (Bld) [#/Vol] 0.4 10*3/uL [facility] Monocytes/100 WBC (Bld) 4.3 % [facility] Neutrophils (Bld) [#/Vol] 8 10*3/uL [facility] Neutrophils/100 WBC (Bld) 89.6 % [facility] Platelet mean volume (Bld) [Entitic vol] 9 fL 7 - 12 fL [facility] Platelets (Bld) [#/Vol] 190 10*3/uL [facility] RBC (Bld) [#/Vol] 4.08 10*6/uL [facility] WBC LM Ql (Sput) 8.9 [facility] CT ABDOMEN AND PELVIS WO CON Ton 09-20-2024 CT ABDOMEN AND PELVIS WO CONT CT ABDOMEN AND PELVIS WO CONT CT ABDOMEN AND PELVIS WITHOUT IV CONTRAST HISTORY: Renal stones, obstruction COMPARISON STUDY: Ultrasound 09/19/2024. TECHNIQUE: CT scan of the abdomen and pelvis performed without IV or PO contrast. Coronal and sagittal reformats generated and reviewed. FINDINGS: Solid visceral organs limited in evaluation secondary to lack of IV contrast. LOWER THORAX: Lower lung atelectasis. HEPATOBILIARY: Scattered hepatic calcifications, no suspicious hepatic mass. No biliary ductal dilatation. Gallbladder is normal. SPLEEN: Unremarkable. PANCREAS: Mild splenomegaly 15 cm craniocaudal dimension ADRENALS: No adrenal nodules. KIDNEYS/URETERS: No urinary tract calculi. There is mild pelvocaliectasis both kidneys, no significant dilatation of either ureter. No visible distal obstructing process. No suspicious renal mass. GI TRACT: No bowel obstruction. Appendix is normal. Colonic diverticulosis without inflammatory change. PELVIC ORGANS/BLADDER: Containing Alexis catheter, bladder wall thickening may be present. No bladder stone. PERITONEUM/RETROPERIT ONEUM: No free air or fluid. LYMPH NODES: No enlarged lymph nodes. VESSELS: Atherosclerotic calcifications without abdominal aortic aneurysm. BONES AND SOFT TISSUES: No suspicious osseous lesion. IMPRESSION: 1. No urinary tract calculi. There is mild pelvocaliectasis both kidneys, no significant dilatation of either ureter. No visible distal obstructing process. 2. Splenomegaly. 3. Bladder wall thickening, please correlate with urinalysis. All CT scans at this facility use dose modulation, iterative reconstruction, and/or weight based dosing when appropriate to reduce radiation dose to as low as reasonably achievable. Finalized by Bipin Mejia MD on 09/20/2024 3:53 PM Normal [facility] CT Abdomen and Pelvis WO con traston 09-20-2024 SECTRAPACS [facility] Radiology Study observation (narrative) [facility] CT Abdomen and Pelvis WO con trastOrdered By: Bipin Mejia on 09-20-2024 [facility] Work Phone: ELECTROLYTE PANELon 09-21-19 25 Anion gap [Moles/Vol] 9 mmol/L Normal 5-15 [facility] Comment on above: Performed By: #### A MMON #### [facility] ([facility]) [address] [place] [address] VIR Chloride [Moles/Vol] 113 mmol/L High 98-109 [facility] Comment on above: Performed By: #### A MMON #### [facility] ([facility]) [address] [place] [address] VIR CO2 [Moles/Vol] 25 mmol/L Normal 22-32 [facility] Comment on above: Performed By: #### A MMON #### [facility] ([facility]) [address] [place] [address] VIR Potassium [Moles/Vol] 5.1 mmol/L High 3.5-5.0 [facility] Comment on above: Result Comment: R-Sp ecimen markedly hemolyzed, results increased Performed By: #### A MMON #### [facility] ([facility]) [address] [place] [address] VIR Sodium [Moles/Vol] 147 mmol/L High 134-146 [facility] Comment on above: Result Comment: R-Sp ecimen markedly hemolyzed, results questionable due to hemolysis Performed By: #### A MMON #### [facility] ([facility]) [address] [place] [address] VIR Anion gap [Moles/Vol] 8 mmol/L Normal 5-15 [facility] Comment on above: Performed By: #### A MMON #### [facility] ([facility]) [address] [place] [address] VIR Chloride [Moles/Vol] 117 mmol/L High 98-109 [facility] Comment on above: Performed By: #### A MMON #### [facility] ([facility]) [address] [place] [address] VIR CO2 [Moles/Vol] 26 mmol/L Normal 22-32 [facility] Comment on above: Performed By: #### A MMON #### [facility] ([facility]) [address] [place] [address] VIR Potassium [Moles/Vol] 4.0 mmol/L Normal 3.5-5.0 [facility] Comment on above: Performed By: #### A MMON #### [facility] ([facility]) [address] [place] [address] VIR Sodium [Moles/Vol] 151 mmol/L High 134-146 [facility] Comment on above: Performed By: #### A MMON #### [facility] ([facility]) [address] [place] [address] VIR Electrolyte panelOrdered By: Med Quiros on 09-20-2024 Anion gap [Moles/Vol] 9 mmol/L 5 - 15 mmol/L [facility] Chloride [Moles/Vol] 113 mmol/L High 98 - 10 9 mmol/L [facility] CO2 [Moles/Vol] 25 mmol/L 22 - 32 mmol/L [facility] Interpretation and review of laboratory results Abnormal [facility] Potassium [Moles/Vol] 5.1 mmol/L High 3.5 - 5.0 mmol/L [facility] Sodium [Moles/Vol] 147 mmol/L High 134 - 146 mmol/L [facility] Electrolyte panelon 09-21-19 25 Anion gap [Moles/Vol] 8 mmol/L 5 - 15 mmol/L [facility] Chloride [Moles/Vol] 117 mmol/L High 98 - 10 9 mmol/L [facility] CO2 [Moles/Vol] 26 mmol/L 22 - 32 mmol/L [facility] Interpretation and review of laboratory results Abnormal [facility] Potassium [Moles/Vol] 4 mmol/L 3.5 - 5.0 mmol/L [facility] Sodium [Moles/Vol] 151 mmol/L High 134 - 146 mmol/L [facility] IONIZED CALCIUMon 09-20-2024 IONIZED CALCIUM - ICAN 5.2 mg/dL Normal 4.5-5.3 Pr [facility] Comment on above: Performed By: #### N UM #### [facility] ([facility]) [address] [place] [address] VIR IONIZED MAGNESIUMon 09-21-19 Magnesium [Moles/Vol] 0.64 mmol/L Normal 0.45-0.74 Pr [facility] Comment on above: Performed By: #### A MMON #### [facility] ([facility]) [address] [place] [address] VIR Ionized calciumon 09-20-2024 Calcium.ionized ISE [Moles/Vol] 5.2 mg/dL 4.5 - 5.3 mg/dL [facility] Interpretation and review of laboratory results Normal [facility] Ionized magnesiumon 09-21-19 25 Interpretation and review of laboratory results Normal [facility] Magnesium Ionized ISE (Bld) [Moles/Vol] 0.64 mmol/L 0.45 - 0.74 mmol/L [facility] MAGNESIUMon 09-20-2024 Magnesium [Mass/Vol] 1.8 mg/dL Normal 1.8-2.6 [facility] Comment on above: Performed By: #### N UM #### [facility] ([facility]) [address] [place] [address] VIR MR BRAIN SYNAPTIVEon 025 MR BRAIN SYNAPTIVE MR BRAIN SYNAPTIVE History: Right temporal lobe mass shown on brain CT COMPARISON: Brain CT from September 18 outside facility [place] PROCEDURE: Multiplanar multisequence images performed through the brain without contrast utilizing synaptive protocol for surgical planning. FINDINGS: Right temporal mass midline shift to the opposite side measuring 14 mm. Extensive surrounding vasogenic edema and mass effect partially compressing the right lateral ventricle and completely compressing the third ventricle with dilatation of the left lateral ventricle. The lesion shows heterogeneous intense enhancement and measures 44.4 mm superior to inferior by 46.4 mm anterior to posterior and 38.7 mm medial to lateral Extensive susceptibility artifacts within the process suggesting some calcification or hemorrhage No extra-axial fluid collections. No MR evidence for an infarct. Diffusion tensor imaging utilized for delineating the associated white matter tracts. IMPRESSION: Right temporal lobe lesion detailed above for surgical planning. 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 Metastasis can also present in this fashion. Finalized by Juan Antonio Lindquist MD on 09/20/2024 7:17 AM Normal [facility] MR Brainon 09-20-2024 SECTRAPACS [facility] Radiology Study observation (narrative) [facility] MR BrainOrdered By: Juan Antonio gilmore on 09-20-2024 [facility] Work Phone: Magnesiumon 09-20-2024 Magnesium [Mass/Vol] 1.8 mg/dL 1.8 - 2 .6 mg/dL [facility] No Panel Informationon 09-20 Interpretation and review of laboratory results Normal [facility] PHOSPHORUSon 09-20-2024 Phosphate [Mass/Vol] 3.5 mg/dL Normal 2.4-4.9 [facility] Comment on above: Performed By: #### N UM #### [facility] ([facility]) [address] [place] [address] VIR Phosphoruson 09-20-2024 Phosphate [Mass/Vol] 3.5 mg/dL 2.4 - 4 .9 mg/dL [facility] VANCOMYCIN, RANDOMon 025 VANCOMYCIN 10.0 ug/mL Normal 5.0-40.0 [facility] Comment on above: Order Comment: Peak 30-40 ug/mLTrough 5-20 ug/ml Performed By: #### A MMON #### [facility] ([facility]) [address] [place] [address] VIR Vancomycin, randomon 025 Interpretation and review of laboratory results Normal [facility] Vancomycin [Susc] 10 ug/mL 5.0 - 40.0 ug/mL [facility] X-ray abdomen NG Tube placem ent 1 viewon 09-20-2024 SECTRAPACS [facility] Radiology Study observation (narrative) [facility] X-ray abdomen NG Tube placem ent 1 viewOrdered By: Thad Aguero on 09-20-2024 [facility] Work Phone: XR ABD NG TUBE PLACEMENT 1 V IEWon 09-20-2024 XR ABD NG TUBE PLACEMENT 1 VIEW XR ABD NG TUBE PLACEMENT 1 VIEW Supine abdominal radiograph HISTORY: NG placement COMPARISON: None IMPRESSION: NG tube extends below the diaphragm into the stomach with tip in the distal gastric body. Finalized by Thad Aguero MD on 09/20/2024 8:04 PM Normal [facility] AMMONIAon 09-19-2024 Ammonia (P) [Moles/Vol] 24 umol/L Normal 18-72 P [facility] Comment on above: Performed By: #### A MMON #### [facility] ([facility]) [address] [place] [address] VIR MAGI SCREEN W/ REFLEXon 09-19 MAGI SCREEN W/REFLEX Negative Normal Negative [facility] Comment on above: Order Comment: Resul t did not trigger repeat Lactate, re-order if needed. Performed By: #### L ACTS #### [facility] ([facility]) [address] [place] [address] VIR APTTon 09-19-2024 aPTT Coag (PPP) [Time] 28 s Pr [facility] Interpretation and review of laboratory results Normal [facility] aPTT Coag (Bld) [Time] 28 s Normal 26-37 Pr [facility] Comment on above: Performed By: #### P TT #### [facility] ([facility]) [address] [place] [address] VIR Ammoniaon 09-19-2024 Ammonia (P) [Moles/Vol] 24 umol/L 18 - 72 umol/L [facility] Interpretation and review of laboratory results Normal [facility] BASIC METABOLIC PANELon 05-0 Anion gap [Moles/Vol] 17 mmol/L High 5-15 [facility] Comment on above: Performed By: #### P INR #### [facility] ([facility]) [address] [place] [address] VIR Calcium [Mass/Vol] 9.2 mg/dL Normal 8.5-10.5 [facility] Comment on above: Performed By: #### P INR #### [facility] ([facility]) [address] [place] [address] VIR Chloride [Moles/Vol] 120 mmol/L High 98-109 [facility] Comment on above: Performed By: #### P INR #### [facility] ([facility]) [address] [place] [address] VIR Creatinine [Mass/Vol] 7.54 mg/dL High 0.40-1.00 [facility] Comment on above: Result Comment: METH OD TRACEABLE TO IDMS STANDARD Performed By: #### P INR #### [facility] ([facility]) [address] [place] [address] VIR GFR/1.73 sq M.predicted among non-blacks MDRD (S/P/Bld) [Vol rate/Area] 6 mL/min/{1.73_m2} Low >=60 [facility] Comment on above: Result Comment: Repo rted eGFR is based on the CKD-EPI 2020 equation that does not use a race coefficient. Performed By: #### P INR #### [facility] ([facility]) [address] [place] [address] VIR Glucose [Mass/Vol] 107 mg/dL High 65-99 [facility] Comment on above: Performed By: #### P INR #### [facility] ([facility]) [address] [place] [address] VIR Potassium [Moles/Vol] 4.5 mmol/L Normal 3.5-5.0 [facility] Comment on above: Performed By: #### P INR #### [facility] ([facility]) [address] [place] [address] VIR Sodium [Moles/Vol] 159 mmol/L High 134-146 [facility] Comment on above: Performed By: #### P INR #### [facility] ([facility]) [address] [place] [address] VIR Urea nitrogen [Mass/Vol] 81 mg/dL High 5-23 [facility] Comment on above: Performed By: #### P INR #### [facility] ([facility]) [address] [place] [address] VIR BEDSIDE GLUCOSEon 09-19-2024 Glucose [Mass/Vol] 110 mg/dL High 65-99 [facility] Comment on above: Performed By: #### N UM #### [facility] ([facility]) [address] [place] [address] VIR BLOOD CULTUREon 09-19-2024 Bacteria identified Cx Nom (Bld) CULTURE RESULTS STAPHYLOCOCCUS, COAGULASE NEGATIVE Staphylococcus, coagulase negative Not S. Lugdunensis Possible Collection Contamination STAPHYLOCOCCUS, COAGULASE NEGATIVE Staphylococcus, coagulase negative Not S. Lugdunensis Variant Possible Collection Contamination GRAM STAIN Gram positive cocci in clusters Abnormal [facility] Comment on above: Order Comment: *SIRS Criteria: (must display 2 without other explanation)-Temperature < 36 or >38-Pulse >90-Resp rate >20-WBC less than 4K or greater than 12KRepeat blood cultures not needed:-To document that a blood culture is a contaminant when 1 of 2 bottles is positive for a common contaminant (already listed in [facility] with the culture result)-To document clearance of gram negative bacteremia in patients with suspected urinary source who are improvingSuboptimal volume of blood collected, Results may be affected. Performed By: #### N UM #### [facility] ([facility]) [address] [place] [address] VIR Bacteria identified Cx Nom (Bld) CULTURE RESULTS NO GROWTH 5 DAYS Normal [facility] Comment on above: Order Comment: *SIRS Criteria: (must display 2 without other explanation)-Temperature < 36 or >38-Pulse >90-Resp rate >20-WBC less than 4K or greater than 12KRepeat blood cultures not needed:-To document that a blood culture is a contaminant when 1 of 2 bottles is positive for a common contaminant (already listed in [facility] with the culture result)-To document clearance of gram negative bacteremia in patients with suspected urinary source who are improving Performed By: #### N UM #### [facility] ([facility]) [address] [place] [address] VIR BLOOD GAS, ARTERIALon 2024 BASE,DEFICIT -8.0 mmol/L Low 0.0-2.0 [facility] Comment on above: Performed By: #### P INR #### [facility] ([facility]) [address] [place] [address] VIR HCO3 (Bld) [Moles/Vol] 16.8 mmol/L Low 22.0-26.0 [facility] Comment on above: Performed By: #### P INR #### [facility] ([facility]) [address] [place] [address] VIR Oxygen saturation in Blood 95.0 % Normal >90.0 [facility] Comment on above: Performed By: #### P INR #### [facility] ([facility]) [address] [place] [address] VIR PCO2 ARTERIAL 29.4 mmHg Low 35.0-45.0 [facility] Comment on above: Performed By: #### P INR #### [facility] ([facility]) [address] [place] [address] VIR PH ARTERIAL 7.364 Normal 7.350-7.45 0 [facility] Comment on above: Performed By: #### P INR #### [facility] ([facility]) [address] [place] [address] VIR PO2 ARTERIAL 78 mmHg Low 80-100 [facility] Comment on above: Performed By: #### P INR #### [facility] ([facility]) [address] [place] [address] VIR POC WILI'S TEST Pass Normal [facility] Comment on above: Performed By: #### P INR #### [facility] ([facility]) [address] [place] [address] VIR SAMPLE SITE L Rad Normal [facility] Comment on above: Performed By: #### P INR #### [facility] ([facility]) [address] [place] [address] VIR SAMPLE TYPE ARTERIAL Normal [facility] Comment on above: Performed By: #### P INR #### [facility] ([facility]) [address] [place] [address] VIR SOURCE OF OXYGEN Room Air Normal [facility] Comment on above: Performed By: #### P INR #### [facility] ([facility]) [address] [place] [address] VIR Basic Metabolic Panelon 05-0 Anion gap [Moles/Vol] 17 mmol/L High 5 - 15 mmol/L [facility] Calcium [Mass/Vol] 9.2 mg/dL 8.5 - 10. 5 mg/dL [facility] Chloride [Moles/Vol] 120 mmol/L High 98 - 10 9 mmol/L [facility] CO2 [Moles/Vol] 22 mmol/L 22 - 32 mmol/L [facility] Creatinine [Mass/Vol] 7.54 mg/dL High 0.40 - 1.00 mg/dL [facility] EGFR Non-Race Dependent 6 Low - PINF P [facility] Glucose [Mass/Vol] 107 mg/dL High 65 - 99 mg/dL [facility] Potassium [Moles/Vol] 4.5 mmol/L 3.5 - 5.0 mmol/L [facility] Sodium [Moles/Vol] 159 mmol/L High 134 - 146 mmol/L [facility] Urea nitrogen [Mass/Vol] 81 mg/dL High 5 - 23 mg/dL [facility] Bedside Glucose *Place/Obtai n serum glucose if >500 per glucometer.on 09-19-2024 Glucose [Mass/Vol] 110 mg/dL High 65 - 99 mg/dL [facility] Interpretation and review of laboratory results Abnormal [facility] Blood pathogens panel KELSIE+no n-probe (Pos bld culture)Ordered By: Dion Shipley on 09-19-2024 Interpretation and review of laboratory results Abnormal [facility] mecA/C gene PCR Detected Abnormal Not Detected [facility] Staphylococcus epidermidis PCR Detected Abnormal Not Detected [facility] CBC WITH AUTO DIFFERENTIALon 09-19-2024 BASOPHILS ABSOLUTE COUNT (10*3/UL) BY AUTOMATED COUNT 0.1 10*3/uL Normal [facility] Comment on above: Performed By: #### P INR #### [facility] ([facility]) [address] [place] [address] VIR BASOPHILS RELATIVE PERCENT BY AUTOMATED COUNT 0.8 % Normal [facility] Comment on above: Performed By: #### P INR #### [facility] ([facility]) [address] [place] [address] VIR CELLAVISION DIFFERENTIAL TYPE AUTOMATED DIFFERENTIAL Normal [facility] Comment on above: Performed By: #### P INR #### [facility] ([facility]) [address] [place] [address] VIR Eosinophils (Bld) [#/Vol] 0.3 10*3/uL Normal [facility] Comment on above: Performed By: #### P INR #### [facility] ([facility]) [address] [place] [address] VIR EOSINOPHILS RELATIVE PERCENT BY AUTOMATED COUNT 2.8 % Normal [facility] Comment on above: Performed By: #### P INR #### [facility] ([facility]) [address] [place] [address] VIR Erythrocyte distribution width (RBC) [Ratio] 15.6 % High 11.5-15 [facility] Comment on above: Performed By: #### P INR #### [facility] ([facility]) [address] [place] [address] VIR Hematocrit (Bld) [Volume fraction] 34.9 % Low 35-47 [facility] Comment on above: Performed By: #### P INR #### [facility] ([facility]) [address] [place] [address] VIR Hemoglobin (Bld) [Mass/Vol] 11.4 g/dL Low 11.7-15.5 [facility] Comment on above: Performed By: #### P INR #### [facility] ([facility]) [address] [place] [address] VIR LYMPHOCYTES ABSOLUTE COUNT (10*3/UL) BY AUTOMATED COUNT 0.7 10*3/uL [facility] Comment on above: Performed By: #### P INR #### [facility] ([facility]) [address] [place] [address] VIR LYMPHOCYTES RELATIVE PERCENT BY AUTOMATED COUNT 7.9 % Normal [facility] Comment on above: Performed By: #### P INR #### [facility] ([facility]) [address] [place] [address] VIR MCH (RBC) [Entitic mass] 27.0 pg Normal 27-34 [facility] Comment on above: Performed By: #### P INR #### [facility] ([facility]) [address] [place] [address] VIR MCHC (RBC) [Mass/Vol] 32.8 g/dL Normal 32-36 [facility] Comment on above: Performed By: #### P INR #### [facility] ([facility]) [address] [place] [address] VIR MCV (RBC) [Entitic vol] 82 fL Normal 80-100 [facility] Comment on above: Performed By: #### P INR #### [facility] ([facility]) [address] [place] [address] VIR MONOCYTES ABSOLUTE COUNT (10*3/UL) BY AUTOMATED COUNT 0.8 10*3/uL Normal [facility] Comment on above: Performed By: #### P INR #### [facility] ([facility]) [address] [place] [address] VIR MONOCYTES RELATIVE PERCENT BY AUTOMATED COUNT 8.9 % Normal [facility] Comment on above: Performed By: #### P INR #### [facility] ([facility]) [address] [place] [address] VIR NEUTROPHILS ABSOLUTE COUNT BY AUTOMATED COUNT 7.3 10*3/uL Normal [facility] Comment on above: Performed By: #### P INR #### [facility] ([facility]) [address] [place] [address] VIR NEUTROPHILS RELATIVE PERCENT BY AUTOMATED COUNT 79.6 % Normal [facility] Comment on above: Performed By: #### P INR #### [facility] ([facility]) [address] [place] [address] VIR Platelet mean volume (Bld) [Entitic vol] 9.2 fL Normal 7-12 [facility] Comment on above: Performed By: #### P INR #### [facility] ([facility]) [address] [place] [address] VIR Platelets (Bld) [#/Vol] 189 10*3/uL Normal 150-450 [facility] Comment on above: Performed By: #### P INR #### [facility] ([facility]) [address] [place] [address] VIR RBC COUNT 4.23 X10E12/L Normal 3.8-5.2 [facility] Comment on above: Performed By: #### P INR #### [facility] ([facility]) [address] [place] [address] VIR WBC (Bld) [#/Vol] 9.2 10*3/uL Normal 4-11 [facility] Comment on above: Performed By: #### P INR #### [facility] ([facility]) [address] [place] [address] VIR BASOPHILS ABSOLUTE COUNT (10*3/UL) BY AUTOMATED COUNT 0.1 10*3/uL Normal [facility] Comment on above: Performed By: #### C BCA #### [facility] ([facility]) [address] [place] [address] VIR BASOPHILS RELATIVE PERCENT BY AUTOMATED COUNT 0.6 % Normal [facility] Comment on above: Performed By: #### C BCA #### [facility] ([facility]) [address] [place] [address] VIR CELLAVISION DIFFERENTIAL TYPE AUTOMATED DIFFERENTIAL Normal [facility] Comment on above: Performed By: #### C BCA #### [facility] ([facility]) [address] [place] [address] VIR Eosinophils (Bld) [#/Vol] 0.4 10*3/uL Normal [facility] Comment on above: Performed By: #### C BCA #### [facility] ([facility]) [address] [place] [address] VIR EOSINOPHILS RELATIVE PERCENT BY AUTOMATED COUNT 3.4 % Normal [facility] Comment on above: Performed By: #### C BCA #### [facility] ([facility]) [address] [place] [address] VIR Erythrocyte distribution width (RBC) [Ratio] 15.7 % High 11.5-15 [facility] Comment on above: Performed By: #### C BCA #### [facility] ([facility]) [address] [place] [address] VIR Hematocrit (Bld) [Volume fraction] 34.9 % Low 35-47 [facility] Comment on above: Performed By: #### C BCA #### [facility] ([facility]) [address] [place] [address] VIR Hemoglobin (Bld) [Mass/Vol] 11.5 g/dL Low 11.7-15.5 [facility] Comment on above: Performed By: #### C BCA #### [facility] ([facility]) [address] [place] [address] VIR LYMPHOCYTES ABSOLUTE COUNT (10*3/UL) BY AUTOMATED COUNT 0.8 10*3/uL Normal [facility] Comment on above: Performed By: #### C BCA #### [facility] ([facility]) [address] [place] [address] VIR LYMPHOCYTES RELATIVE PERCENT BY AUTOMATED COUNT 7.5 % Normal [facility] Comment on above: Performed By: #### C BCA #### [facility] ([facility]) [address] [place] [address] VIR MCH (RBC) [Entitic mass] 27.7 pg Normal 27-34 [facility] Comment on above: Performed By: #### C BCA #### [facility] ([facility]) [address] [place] [address] VIR MCHC (RBC) [Mass/Vol] 33.1 g/dL Normal 32-36 [facility] Comment on above: Performed By: #### C BCA #### [facility] ([facility]) [address] [place] [address] VIR MCV (RBC) [Entitic vol] 84 fL Normal 80-100 P [facility] Comment on above: Performed By: #### C BCA #### [facility] ([facility]) [address] [place] [address] VIR MONOCYTES ABSOLUTE COUNT (10*3/UL) BY AUTOMATED COUNT 0.9 10*3/uL Normal [facility] Comment on above: Performed By: #### C BCA #### [facility] ([facility]) [address] [place] [address] VIR MONOCYTES RELATIVE PERCENT BY AUTOMATED COUNT 9.2 % Normal [facility] Comment on above: Performed By: #### C BCA #### [facility] ([facility]) [address] [place] [address] VIR NEUTROPHILS ABSOLUTE COUNT BY AUTOMATED COUNT 8.2 10*3/uL Normal [facility] Comment on above: Performed By: #### C BCA #### [facility] ([facility]) [address] [place] [address] VIR NEUTROPHILS RELATIVE PERCENT BY AUTOMATED COUNT 79.3 % Normal [facility] Comment on above: Performed By: #### C BCA #### [facility] ([facility]) [address] [place] [address] VIR Platelet mean volume (Bld) [Entitic vol] 9.2 fL Normal 7-12 [facility] Comment on above: Performed By: #### C BCA #### [facility] ([facility]) [address] [place] [address] VIR Platelets (Bld) [#/Vol] 199 10*3/uL Normal 150-450 [facility] Comment on above: Performed By: #### C BCA #### [facility] ([facility]) [address] [place] [address] VIR RBC COUNT 4.16 X10E12/L Normal 3.8-5.2 [facility] Comment on above: Performed By: #### C BCA #### [facility] ([facility]) [address] [place] [address] VIR WBC (Bld) [#/Vol] 10.3 10*3/uL Normal 4-11 [facility] Comment on above: Performed By: #### C BCA #### [facility] ([facility]) [address] [place] [address] VIR CBC auto differentialon 05-0 Basophils (Bld) [#/Vol] 0.1 10*3/uL [facility] Basophils/100 WBC (Bld) 0.8 % [facility] Differential cell count method Nom (Bld) AUTOMATED DIFFERENTIAL [facility] Eosinophils (Bld) [#/Vol] 0.3 10*3/uL [facility] Eosinophils/100 WBC (Bld) 2.8 % [facility] Erythrocyte distribution width (RBC) [Ratio] 15.6 % High 11.5 - 15 % [facility] Hematocrit (Bld) [Volume fraction] 34.9 % Low 35 - 47 % [facility] Hemoglobin (Bld) [Mass/Vol] 11.4 g/dL Low 11.7 - 15.5 g/dL [facility] Interpretation and review of laboratory results Abnormal [facility] Lymphocytes (Bld) [#/Vol] 0.7 10*3/uL [facility] Lymphocytes/100 WBC (Bld) 7.9 % [facility] MCH (RBC) [Entitic mass] 27 pg 27 - 34 pg [facility] MCHC (RBC) [Mass/Vol] 32.8 g/dL 32 - 3 6 g/dL [facility] MCV (RBC) [Entitic vol] 82 fL 80 - 100 fL [facility] Monocytes (Bld) [#/Vol] 0.8 10*3/uL [facility] Monocytes/100 WBC (Bld) 8.9 % P [facility] Neutrophils (Bld) [#/Vol] 7.3 10*3/uL [facility] Neutrophils/100 WBC (Bld) 79.6 % [facility] Platelet mean volume (Bld) [Entitic vol] 9.2 fL 7 - 12 fL [facility] Platelets (Bld) [#/Vol] 189 10*3/uL [facility] RBC (Bld) [#/Vol] 4.23 10*6/uL [facility] WBC LM Ql (Sput) 9.2 [facility] Basophils (Bld) [#/Vol] 0.1 10*3/uL [facility] Basophils/100 WBC (Bld) 0.6 % P [facility] Differential cell count method Nom (Bld) AUTOMATED DIFFERENTIAL [facility] Eosinophils (Bld) [#/Vol] 0.4 10*3/uL [facility] Eosinophils/100 WBC (Bld) 3.4 % [facility] Erythrocyte distribution width (RBC) [Ratio] 15.7 % High 11.5 - 15 % [facility] Hematocrit (Bld) [Volume fraction] 34.9 % Low 35 - 47 % [facility] Hemoglobin (Bld) [Mass/Vol] 11.5 g/dL Low 11.7 - 15.5 g/dL [facility] Interpretation and review of laboratory results Abnormal [facility] Lymphocytes (Bld) [#/Vol] 0.8 10*3/uL [facility] Lymphocytes/100 WBC (Bld) 7.5 % [facility] MCH (RBC) [Entitic mass] 27.7 pg 27 - 34 pg [facility] MCHC (RBC) [Mass/Vol] 33.1 g/dL 32 - 3 6 g/dL [facility] MCV (RBC) [Entitic vol] 84 fL 80 - 100 fL [facility] Monocytes (Bld) [#/Vol] 0.9 10*3/uL [facility] Monocytes/100 WBC (Bld) 9.2 % P [facility] Neutrophils (Bld) [#/Vol] 8.2 10*3/uL [facility] Neutrophils/100 WBC (Bld) 79.3 % [facility] Platelet mean volume (Bld) [Entitic vol] 9.2 fL 7 - 12 fL [facility] Platelets (Bld) [#/Vol] 199 10*3/uL [facility] RBC (Bld) [#/Vol] 4.16 10*6/uL [facility] WBC LM Ql (Sput) 10.3 [facility] CK TOTALon 09-19-2024 CPK 18 U/L Low 24-170 [facility] Comment on above: Performed By: #### P TT #### [facility] ([facility]) [address] [place] [address] VIR CPK 18 U/L Low 24-170 [facility] Comment on above: Performed By: #### C PK #### [facility] ([facility]) [address] [place] [address] VIR CK Totalon 09-19-2024 CK [Catalytic activity/Vol] 18 U/L Low 24 - 170 U/L [facility] CK [Catalytic activity/Vol] 18 U/L Low 24 - 170 U/L [facility] Interpretation and review of laboratory results Abnormal [facility] COMPLEMENT PROFILE (C3 AND C 4)on 09-19-2024 COMPLEMENT C3 196 mg/dL High 86-184 [facility] Comment on above: Performed By: #### P TT #### [facility] ([facility]) [address] [place] [address] VIR COMPLEMENT C4 42 mg/dL Normal 16-47 [facility] Comment on above: Performed By: #### P TT #### [facility] ([facility]) [address] [place] [address] VIR COMPREHENSIVE METABOLIC PANE Antoni 09-19-2024 Albumin [Mass/Vol] 3.4 g/dL Normal 3.2-5.3 [facility] Comment on above: Performed By: #### C MP #### [facility] ([facility]) [address] [place] [address] VIR ALP [Catalytic activity/Vol] 73 U/L Normal 39-130 [facility] Comment on above: Performed By: #### C MP #### [facility] ([facility]) [address] [place] [address] VIR ALT [Catalytic activity/Vol] 4 U/L Normal <=31 [facility] Comment on above: Performed By: #### C MP #### [facility] ([facility]) [address] [place] [address] VIR Anion gap [Moles/Vol] 17 mmol/L High 5-15 [facility] Comment on above: Performed By: #### C MP #### [facility] ([facility]) [address] [place] [address] VIR AST [Catalytic activity/Vol] 8 U/L Normal <=41 [facility] Comment on above: Performed By: #### C MP #### [facility] ([facility]) [address] [place] [address] VIR Bilirubin [Mass/Vol] 0.4 mg/dL Normal 0.3-1.2 [facility] Comment on above: Performed By: #### C MP #### [facility] ([facility]) [address] [place] [address] VIR Calcium [Mass/Vol] 9.3 mg/dL Normal 8.5-10.5 [facility] Comment on above: Performed By: #### C MP #### [facility] ([facility]) [address] [place] [address] VIR Chloride [Moles/Vol] 120 mmol/L High 98-109 [facility] Comment on above: Performed By: #### C MP #### [facility] ([facility]) [address] [place] [address] VIR CO2 [Moles/Vol] 14 mmol/L Low 22-32 [facility] Comment on above: Performed By: #### C MP #### [facility] ([facility]) [address] [place] [address] VIR Creatinine [Mass/Vol] 9.65 mg/dL High 0.40-1.00 [facility] Comment on above: Result Comment: METH OD TRACEABLE TO IDMS STANDARD Performed By: #### C MP #### [facility] ([facility]) [address] [place] [address] VIR GFR/1.73 sq M.predicted among non-blacks MDRD (S/P/Bld) [Vol rate/Area] 4 mL/min/{1.73_m2} Low >=60 [facility] Comment on above: Result Comment: Repo rted eGFR is based on the CKD-EPI 2020 equation that does not use a race coefficient. Performed By: #### C MP #### [facility] ([facility]) [address] [place] [address] VIR Glucose [Mass/Vol] 103 mg/dL High 65-99 [facility] Comment on above: Performed By: #### C MP #### [facility] ([facility]) [address] [place] [address] VIR Potassium [Moles/Vol] 4.6 mmol/L Normal 3.5-5.0 [facility] Comment on above: Performed By: #### C MP #### [facility] ([facility]) [address] [place] [address] VIR Protein [Mass/Vol] 6.8 g/dL Normal 6.0-8.0 [facility] Comment on above: Performed By: #### C MP #### [facility] ([facility]) [address] [place] [address] VIR Sodium [Moles/Vol] 151 mmol/L High 134-146 [facility] Comment on above: Performed By: #### C MP #### [facility] ([facility]) [address] [place] [address] VIR Urea nitrogen [Mass/Vol] 91 mg/dL High 5-23 [facility] Comment on above: Performed By: #### C MP #### [facility] ([facility]) [address] [place] [address] VIR Complement profile (C3 AND C 4)on 09-19-2024 Complement C3 [Mass/Vol] 196 mg/dL High 86 - 184 mg/dL [facility] Complement C4 [Mass/Vol] 42 mg/dL 16 - 47 mg/dL [facility] Comprehensive metabolic pane antoni 09-19-2024 Albumin [Mass/Vol] 3.4 g/dL 3.2 - 5.3 g/dL [facility] ALP [Catalytic activity/Vol] 73 U/L 39 - 130 U/L [facility] ALT No additional P-5'-P [Catalytic activity/Vol] 4 U/L NINF - 31 U/L [facility] Anion gap [Moles/Vol] 17 mmol/L High 5 - 15 mmol/L [facility] AST [Catalytic activity/Vol] 8 U/L NINF - 41 U/L [facility] Bilirubin [Mass/Vol] 0.4 mg/dL 0.3 - 1 .2 mg/dL [facility] Calcium [Mass/Vol] 9.3 mg/dL 8.5 - 10. 5 mg/dL [facility] Chloride [Moles/Vol] 120 mmol/L High 98 - 10 9 mmol/L [facility] CO2 [Moles/Vol] 14 mmol/L Low 22 - 32 mmol/L [facility] Creatinine [Mass/Vol] 9.65 mg/dL High 0.40 - 1.00 mg/dL [facility] EGFR Non-Race Dependent 4 Low - PINF P [facility] Glucose [Mass/Vol] 103 mg/dL High 65 - 99 mg/dL [facility] Interpretation and review of laboratory results Abnormal [facility] Potassium [Moles/Vol] 4.6 mmol/L 3.5 - 5.0 mmol/L [facility] Protein [Mass/Vol] 6.8 g/dL 6.0 - 8.0 g/dL [facility] Sodium [Moles/Vol] 151 mmol/L High 134 - 146 mmol/L [facility] Urea nitrogen [Mass/Vol] 91 mg/dL High 5 - 23 mg/dL [facility] ECG 12 leadOrdered By: Charley Cohen on 09-19-2024 [facility] ELECTROLYTE PANELon 09-20-19 25 Anion gap [Moles/Vol] 11 mmol/L Normal 5-15 [facility] Comment on above: Performed By: #### N UM #### [facility] ([facility]) [address] [place] [address] VIR Chloride [Moles/Vol] 119 mmol/L High 98-109 [facility] Comment on above: Performed By: #### N UM #### [facility] ([facility]) [address] [place] [address] VIR CO2 [Moles/Vol] 24 mmol/L Normal 22-32 [facility] Comment on above: Performed By: #### N UM #### [facility] ([facility]) [address] [place] [address] VIR Potassium [Moles/Vol] 4.3 mmol/L Normal 3.5-5.0 [facility] Comment on above: Performed By: #### N UM #### [facility] ([facility]) [address] [place] [address] VIR Sodium [Moles/Vol] 154 mmol/L High 134-146 [facility] Comment on above: Performed By: #### N UM #### [facility] ([facility]) [address] [place] [address] VIR Anion gap [Moles/Vol] 13 mmol/L Normal 5-15 [facility] Comment on above: Performed By: #### N UM #### [facility] ([facility]) [address] [place] [address] VIR Chloride [Moles/Vol] 118 mmol/L High 98-109 [facility] Comment on above: Performed By: #### N UM #### [facility] ([facility]) [address] [place] [address] VIR CO2 [Moles/Vol] 21 mmol/L Low 22-32 [facility] Comment on above: Performed By: #### N UM #### [facility] ([facility]) [address] [place] [address] VIR Potassium [Moles/Vol] 4.5 mmol/L Normal 3.5-5.0 [facility] Comment on above: Performed By: #### N UM #### [facility] ([facility]) [address] [place] [address] VIR Sodium [Moles/Vol] 152 mmol/L High 134-146 [facility] Comment on above: Performed By: #### N UM #### [facility] ([facility]) [address] [place] [address] VIR Anion gap [Moles/Vol] 15 mmol/L Normal 5-15 [facility] Comment on above: Performed By: #### P INR #### [facility] ([facility]) [address] [place] [address] VIR Chloride [Moles/Vol] 119 mmol/L High 98-109 [facility] Comment on above: Performed By: #### P INR #### [facility] ([facility]) [address] [place] [address] VIR CO2 [Moles/Vol] 22 mmol/L Normal 22-32 [facility] Comment on above: Performed By: #### P INR #### [facility] ([facility]) [address] [place] [address] VIR Potassium [Moles/Vol] 4.3 mmol/L Normal 3.5-5.0 [facility] Comment on above: Performed By: #### P INR #### [facility] ([facility]) [address] [place] [address] VIR Sodium [Moles/Vol] 156 mmol/L High 134-146 [facility] Comment on above: Performed By: #### P INR #### [facility] ([facility]) [address] [place] [address] VIR Electrolyte panelon 09-20-19 25 Anion gap [Moles/Vol] 11 mmol/L 5 - 15 mmol/L [facility] Chloride [Moles/Vol] 119 mmol/L High 98 - 10 9 mmol/L [facility] CO2 [Moles/Vol] 24 mmol/L 22 - 32 mmol/L [facility] Interpretation and review of laboratory results Abnormal [facility] Potassium [Moles/Vol] 4.3 mmol/L 3.5 - 5.0 mmol/L [facility] Sodium [Moles/Vol] 154 mmol/L High 134 - 146 mmol/L [facility] Anion gap [Moles/Vol] 13 mmol/L 5 - 15 mmol/L [facility] Chloride [Moles/Vol] 118 mmol/L High 98 - 10 9 mmol/L [facility] CO2 [Moles/Vol] 21 mmol/L Low 22 - 32 mmol/L [facility] Interpretation and review of laboratory results Abnormal [facility] Potassium [Moles/Vol] 4.5 mmol/L 3.5 - 5.0 mmol/L [facility] Sodium [Moles/Vol] 152 mmol/L High 134 - 146 mmol/L [facility] Anion gap [Moles/Vol] 15 mmol/L 5 - 15 mmol/L [facility] Chloride [Moles/Vol] 119 mmol/L High 98 - 10 9 mmol/L [facility] CO2 [Moles/Vol] 22 mmol/L 22 - 32 mmol/L [facility] Interpretation and review of laboratory results Abnormal [facility] Potassium [Moles/Vol] 4.3 mmol/L 3.5 - 5.0 mmol/L [facility] Sodium [Moles/Vol] 156 mmol/L High 134 - 146 mmol/L [facility] Extra Urineon 09-19-2024 Extra Tube Auto Resulted [facility] FERRITINon 09-19-2024 Ferritin [Mass/Vol] 130 ng/mL Normal 11-307 [facility] Comment on above: Performed By: #### P TT #### [facility] ([facility]) [address] [place] [address] VIR FOLATEon 09-19-2024 FOLIC ACID 13.1 ng/mL Normal >5.8 [facility] Comment on above: Performed By: #### P TT #### [facility] ([facility]) [address] [place] [address] VIR Ferritinon 09-19-2024 Ferritin [Mass/Vol] 130 ng/mL 11 - 307 ng/mL [facility] Interpretation and review of laboratory results Normal [facility] Folateon 09-19-2024 Folate [Mass/Vol] 13.1 ng/mL 5.8 - PINF ng/mL [facility] Interpretation and review of laboratory results Normal [facility] GLOMERULAR BASEMENT MEMBRANE IGG ABon 09-19-2024 GBM IGG AB <^0.2 Normal <1.0 [facility] Comment on above: Performed By: #### L ACTS #### [facility] ([facility]) [address] [place] [address] VIR Gas panel (BldA)on Arterial patency Wrist artery --pre arterial puncture Pass [facility] Base deficit (Bld) [Moles/Vol] -8 mmol/L Low 0.0 - 2.0 mmol/L [facility] CO2 (Bld) [Partial pressure] 29.4 mm[Hg] Low [facility] HCO3 (Bld) [Moles/Vol] 16.8 mmol/L Low 22.0 - 26.0 mmol/L [facility] Interpretation and review of laboratory results Abnormal [facility] Oxygen (Bld) [Partial pressure] 78 mm[Hg] Low [facility] Oxygen therapy source and amount [CARE] Room Air [facility] pH (Bld) 7.364 [pH] 7.350 - 7.450 [facility] Specimen site Narrative Verena Saavedra [facility] Specimen type Nom (Spec) ARTERIAL [facility] HEMOGLOBIN A1Con 09-19-2024 Glucose [Mass/Vol] 108 mg/dL Normal [facility] Comment on above: Performed By: #### P INR #### [facility] ([facility]) [address] [place] [address] VIR HbA1c (Bld) [Mass fraction] 5.4 % Normal 4.4-5.6 [facility] Comment on above: Result Comment: ADA Guidelines Result HgbA1c Normal : less than 5.7 % Prediabetes : 5.7 % to 6.4 % Diabetes : > 6.4 % Use with caution in patients with abnormal hemoglobin variants as the half-life of red blood cells and in vivo glycation rates are affected. Performed By: #### P INR #### [facility] ([facility]) [address] [place] [address] VIR Hemoglobin A1con 09-19-2024 Average glucose Estimated from glycated hemoglobin (Bld) [Mass/Vol] 108 mg/dL [facility] HbA1c (Bld) [Mass fraction] 5.4 % 4.4 - 5.6 % [facility] IRON AND TIBCon 09-19-2024 Iron [Mass/Vol] 56 ug/dL Normal 50-170 [facility] Comment on above: Performed By: #### P TT #### [facility] ([facility]) [address] [place] [address] VIR IRON BINDING 309 ug/dL Normal 250-425 [facility] Comment on above: Performed By: #### P TT #### [facility] ([facility]) [address] [place] [address] VIR IRON SATURATION 18 % SATURATION Normal 15-50 [facility] Comment on above: Performed By: #### P TT #### [facility] ([facility]) [address] [place] [address] VIR Transferrin [Mass/Vol] 221 mg/dL Normal 168-336 [facility] Comment on above: Performed By: #### P TT #### [facility] ([facility]) [address] [place] [address] VIR Iron and TIBCon 09-19-2024 Interpretation and review of laboratory results Normal [facility] Iron [Mass/Vol] 56 ug/dL 50 - 170 ug/dL [facility] Iron binding capacity [Mass/Vol] 309 ug/dL 250 - 425 ug/dL [facility] Iron saturation [Mass fraction] 18 [facility] Transferrin [Mass or moles/Vol] 221 mg/dL 168 - 336 mg/dL [facility] LACTATE W/ REFLEXon 09-20-19 25 LACTATE W/REFLEX 0.7 mmol/L Normal 0.4-2.0 [facility] Comment on above: Order Comment: Resul t did not trigger repeat Lactate, re-order if needed. Performed By: #### L ACTS #### [facility] ([facility]) [address] [place] [address] VIR Laboratory - Chemistry and C hemistry - challengeon 09-19-2024 Creatinine (U) [Mass/Vol] 83.54 mg/dL [facility] Lactate w/ Reflexon 09-20-19 25 Interpretation and review of laboratory results Normal [facility] Lactate (P nadine) [Moles/Vol] 0.7 mmol/L 0.4 - 2.0 mmol/L [facility] MAGNESIUMon 09-19-2024 Magnesium [Mass/Vol] 2.4 mg/dL Normal 1.8-2.6 [facility] Comment on above: Performed By: #### P INR #### [facility] ([facility]) [address] [place] [address] VIR MYELOPEROXIDASE ABon 025 MYELOPEROXIDASE AB <^0.2 Normal <1.0 [facility] Comment on above: Performed By: #### L ACTS #### [facility] ([facility]) [address] [place] [address] VIR MYOGLOBIN, SERUMon SERUM MYOGLOBIN 33.4 ng/mL Normal 14.3-65.8 [facility] Comment on above: Performed By: #### P INR #### [facility] ([facility]) [address] [place] [address] VIR Magnesiumon 09-19-2024 Magnesium [Mass/Vol] 2.4 mg/dL 1.8 - 2 .6 mg/dL [facility] Myoglobin, serumon Interpretation and review of laboratory results Normal [facility] Myoglobin [Mass/Vol] 33.4 ng/mL 14.3 - 65.8 ng/mL [facility] No Panel Informationon 09-19 Interpretation and review of laboratory results Normal [facility] Interpretation and review of laboratory results Abnormal [facility] PHOSPHORUSon 09-19-2024 Phosphate [Mass/Vol] 5.8 mg/dL High 2.4-4.9 [facility] Comment on above: Performed By: #### P INR #### [facility] ([facility]) [address] [place] [address] VIR POCT NURSING URINE MACROSCOP IC UAon 09-19-2024 BILIRUBIN SORIN Negative Normal Negative [facility] Comment on above: Performed By: #### N UM #### [facility] ([facility]) [address] [place] [address] VIR BLOOD/HGB SORIN Large Abnormal Negative [facility] Comment on above: Performed By: #### N UM #### [facility] ([facility]) [address] [place] [address] VIR GLUCOSE SORIN Negative Normal Negative [facility] Comment on above: Performed By: #### N UM #### [facility] ([facility]) [address] [place] [address] VIR KETONES SORIN Negative Normal Negative [facility] Comment on above: Performed By: #### N UM #### [facility] ([facility]) [address] [place] [address] VIR LEUKOCYTE ESTERASE SORIN Negative Normal Negative [facility] Comment on above: Performed By: #### N UM #### [facility] ([facility]) [address] [place] [address] VIR NITRITE SORIN Negative Normal Negative [facility] Comment on above: Performed By: #### N UM #### [facility] ([facility]) [address] [place] [address] VIR PH SORIN 5.5 Normal 5.0, 6.0, 6.5, 7.0, 7.5, 8.0, 8.5, 5.5 [facility] Comment on above: Performed By: #### N UM #### [facility] ([facility]) [address] [place] [address] VIR PROTEIN SORIN 100 mg/dL Abnormal Negative [facility] Comment on above: Performed By: #### N UM #### [facility] ([facility]) [address] [place] [address] VIR SPECIFIC GRAVITY SORIN 1.020 Normal 1.010, 1.015, 1.020, 1.025 [facility] Comment on above: Performed By: #### N UM #### [facility] ([facility]) [address] [place] [address] VIR UROBILINOGEN SORIN 0.2 E.U./dL Normal 0.2 E.U./dL, 1.0 E.U./dL [facility] Comment on above: Performed By: #### N UM #### [facility] ([facility]) [address] [place] [address] VIR POCT Nursing Urine Macroscop ic UAon 09-19-2024 Bilirubin Ql (U) Negative Negative [facility] Glucose [Mass/Vol] Negative Negative [facility] Hemoglobin Ql (U) Large Abnormal Negative [facility] Interpretation and review of laboratory results Abnormal [facility] Ketones (U) [Mass/Vol] Negative Negative [facility] Leukocyte esterase Test strip Ql (U) Negative Negative [facility] Nitrite Ql (U) Negative Negative [facility] pH (U) 5.5 [pH] 5.0, 6.0, 6.5, 7.0, 7.5, 8.0, 8.5, 5.5 [facility] Protein Ql (U) 100 mg/dL Abnormal Negative [facility] Specific gravity (U) [Rel density] 1.020 1.010, 1.015, 1.020, 1.025 [facility] Urobilinogen Qn (U) [id number] {Mirza'U}/dL 0.2 E.U./dL, 1.0 E.U./dL [facility] PROCALCITONINon 09-19-2024 PROCALCITONIN 0.12 ng/mL High <0.05 [facility] Comment on above: Order Comment: <0.50 ng/mL - Low risk of severe sepsis and/or septic shock.<2.00 ng/mL - Recommend retesting within 6-24 hours.>2.00 ng/mL - High risk of sepsis and/or septic shock. Performed By: #### P TT #### [facility] ([facility]) [address] [place] [address] VIR PROTEIN CREAT RATIOon 2024 U/PRO/CHILI POWDER MIXER RATIO CALC 1.62 High <=0.20 [facility] Comment on above: Order Comment: Nephr otic Syndrome is associated with ratios >3.5 Performed By: #### P INR #### [facility] ([facility]) [address] [place] [address] VIR URINE PROTEIN, RANDOM (MG/L) 1350 mg/L High <120 [facility] Comment on above: Order Comment: Nephr otic Syndrome is associated with ratios >3.5 Performed By: #### P INR #### [facility] ([facility]) [address] [place] [address] VIR PROTEINASE 3 AB PR3on 2024 PROTEINASE 3 IGG AB <^0.2 Normal <1.0 [facility] Comment on above: Performed By: #### L ACTS #### [facility] ([facility]) [address] [place] [address] VIR PROTIME AND INRon 09-19-2024 INR 1.2 Normal 0.9-1.2 [facility] Comment on above: Performed By: #### P INR #### [facility] ([facility]) [address] [place] [address] VIR PT Coag (PPP) [Time] 14.0 s High 9.8-13.2 [facility] Comment on above: Performed By: #### P INR #### [facility] ([facility]) [address] [place] [address] VIR Phosphoruson 09-19-2024 Phosphate [Mass/Vol] 5.8 mg/dL High 2.4 - 4 .9 mg/dL [facility] Procalcitoninon 09-19-2024 Procalcitonin IA [Mass/Vol] 0.12 ng/mL High NINF - 0.05 ng/mL [facility] Protein creat ratioon 2024 Interpretation and review of laboratory results Abnormal [facility] Protein (U) [Mass/Vol] 1350 mg/L High NINF - 120 mg/L [facility] Protein/Creatinine (U) [Ratio] 1.62 High NINF - 0.20 [facility] Protime & INRon 09-19-2024 INR Coag (Platelet poor plasma or blood) [Relative time] 1.2 0.9 - 1.2 [facility] Interpretation and review of laboratory results Abnormal [facility] PT Coag (PPP) [Time] 14 s High [facility] SODIUM, URINE, RANDOMon Sodium (U) [Moles/Vol] 69 mmol/L Normal [facility] Comment on above: Performed By: #### U LUDMILA #### [facility] ([facility]) [address] [place] [address] VIR Sodium, urine, randomon Sodium (U) [Moles/Vol] 69 mmol/L Pr [facility] THYROID PROFILE INCLUDES TSH [id number] Free T4 [Mass/Vol] 0.86 ng/dL Normal 0.61-1.60 [facility] Comment on above: Performed By: #### P TT #### [facility] [facility] [address] [place] [address] VIR TSH 2.80 uIU/mL Normal 0.49-4.67 [facility] Comment on above: Performed By: #### P TT #### [facility] ([facility]) [address] [place] [address] VIR TROP I, HIGH SENSITIVITY 1 H OUR09-19-2024 TROPONIN I, HIGH SENSITIVITY 10 ng/L Normal <16 [facility] Comment on above: Performed By: #### T NIHS1 #### [facility] ([facility]) [address] [place] [address] VIR TROPONIN I, HIGH SENSITIVITY 0 HOURon 09-19-2024 TROPONIN I, HIGH SENSITIVITY 11 ng/L Normal <16 [facility] Comment on above: Performed By: #### P INR #### [facility] ([facility]) [address] [place] [address] VIR Thyroid profile includes TSH FT409-19-2024 Free T4 [Mass/Vol] 0.86 ng/dL 0.61 - 1.60 ng/dL [facility] TSH Qn 2.8 m[IU]/L [facility] Troponin I, High Sensitivity 0 Houron 09-19-2024 Interpretation and review of laboratory results Normal [facility] Troponin I.cardiac High sensitivity method [Mass/Vol] 11 ng/L NINF - 16 ng/L [facility] Troponin I, High Sensitivity 1 Houron 09-19-2024 Interpretation and review of laboratory results Normal [facility] Troponin I.cardiac High sensitivity method [Mass/Vol] 10 ng/L NINF - 16 ng/L [facility] URINALYSISon 09-19-2024 Bilirubin Ql (U) Negative Normal Negative [facility] Comment on above: Order Comment: Urine received without preservative. Delays in transport may affect results. Interpret with caution. A clinical correlation is recommended. Performed By: #### P TT #### [facility] ([facility]) [address] [place] [address] VIR BLOOD/HGB Moderate Abnormal Negative [facility] Comment on above: Order Comment: Urine received without preservative. Delays in transport may affect results. Interpret with caution. A clinical correlation is recommended. Performed By: #### P TT #### [facility] ([facility]) [address] [place] [address] VIR Color (U) Colorless Normal Yellow, Colorless [facility] Comment on above: Order Comment: Urine received without preservative. Delays in transport may affect results. Interpret with caution. A clinical correlation is recommended. Performed By: #### P TT #### [facility] ([facility]) [address] [place] [address] VIR Glucose Ql (U) Negative Normal Negative [facility] Comment on above: Order Comment: Urine received without preservative. Delays in transport may affect results. Interpret with caution. A clinical correlation is recommended. Performed By: #### P TT #### [facility] ([facility]) [address] [place] [address] VIR Ketones Ql (U) Negative Normal Negative [facility] Comment on above: Order Comment: Urine received without preservative. Delays in transport may affect results. Interpret with caution. A clinical correlation is recommended. Performed By: #### P TT #### [facility] ([facility]) [address] [place] [address] VIR Leukocyte esterase Test strip Ql (U) Small Abnormal Negative [facility] Comment on above: Order Comment: Urine received without preservative. Delays in transport may affect results. Interpret with caution. A clinical correlation is recommended. Performed By: #### P TT #### [facility] ([facility]) [address] [place] [address] VIR MUCOUS Present Abnormal None [facility] Comment on above: Order Comment: Urine received without preservative. Delays in transport may affect results. Interpret with caution. A clinical correlation is recommended. Performed By: #### P TT #### [facility] ([facility]) [address] [place] [address] VIR Nitrite Ql (U) Negative Normal Negative [facility] Comment on above: Order Comment: Urine received without preservative. Delays in transport may affect results. Interpret with caution. A clinical correlation is recommended. Performed By: #### P TT #### [facility] ([facility]) [address] [place] [address] VIR PH,URINE 5.5 Normal 5.0-8.5 [facility] Comment on above: Order Comment: Urine received without preservative. Delays in transport may affect results. Interpret with caution. A clinical correlation is recommended. Performed By: #### P TT #### [facility] ([facility]) [address] [place] [address] VIR Protein Ql (U) 70 mg/dL Abnormal Negative [facility] Comment on above: Order Comment: Urine received without preservative. Delays in transport may affect results. Interpret with caution. A clinical correlation is recommended. Performed By: #### P TT #### [facility] ([facility]) [address] [place] [address] VIR R.B.CELLS 17 High 0-5 [facility] Comment on above: Order Comment: Urine received without preservative. Delays in transport may affect results. Interpret with caution. A clinical correlation is recommended. Performed By: #### P TT #### [facility] ([facility]) [address] [place] [address] VIR Specific gravity (U) [Rel density] 1.013 Normal 1.003-1.03 5 [facility] Comment on above: Order Comment: Urine received without preservative. Delays in transport may affect results. Interpret with caution. A clinical correlation is recommended. Performed By: #### P TT #### [facility] ([facility]) [address] [place] [address] VIR SQUAMOUS EPITHELIUM 1 Normal 0-5 [facility] Comment on above: Order Comment: Urine received without preservative. Delays in transport may affect results. Interpret with caution. A clinical correlation is recommended. Performed By: #### P TT #### [facility] ([facility]) [address] [place] [address] VIR TURBIDITY Hazy Abnormal Clear [facility] Comment on above: Order Comment: Urine received without preservative. Delays in transport may affect results. Interpret with caution. A clinical correlation is recommended. Performed By: #### P TT #### [facility] ([facility]) [address] [place] [address] VIR UROBILINOGEN <1.1 eu/dL Normal <1.1 eu/dL [facility] Comment on above: Order Comment: Urine received without preservative. Delays in transport may affect results. Interpret with caution. A clinical correlation is recommended. Performed By: #### P TT #### [facility] ([facility]) [address] [place] [address] VIR W.B.CELLS 39 High 0-5 [facility] Comment on above: Order Comment: Urine received without preservative. Delays in transport may affect results. Interpret with caution. A clinical correlation is recommended. Performed By: #### P TT #### [facility] ([facility]) [address] [place] [address] VIR URINE CREATININE,RANDOMon URINE CREATININE,RDM 83.54 mg/dL Normal [facility] Comment on above: Performed By: #### P INR #### [facility] ([facility]) [address] [place] [address] VIR Order Comment: Nephr otic Syndrome is associated with ratios >3.5 US RETROPERITONEAL COMPLETEo n 09-19-2024 US RETROPERITONEAL COMPLETE US RETROPERITONEAL COMPLETE US RETROPERITONEAL COMPLETE HISTORY: Acute renal failure, renal size evaluation, rule out hydronephrosis. COMPARISON: None. TECHNIQUE: Grayscale and color Doppler sonographic images of the urinary bladder and both kidneys. FINDINGS: Right kidney: * 10.6 x 5.3 x 6.1 cm. Cortex: 0.7 cm. Normal echogenicity. * There is a 0.4 cm echogenic focus within the right renal pelvis/proximal right ureter which demonstrates twinkle artifact, compatible with renal calculus. There is mild prominence of the right renal pelvis which measures 1.2 cm and proximal ureter which measures 0.9 cm. Left kidney: * 14.0 x 4.6 x 5.6 cm. Cortex: 0.7 cm. Normal echogenicity. * Mild prominence of the left renal pelvis which measures up to 2.1 cm. No evidence of contour deforming mass or calculi. Alexis catheter noted within the decompressed bladder. IMPRESSION: * Right nephrolithiasis measuring 0.4 cm with mild right hydronephrosis. * Mild left hydronephrosis without visualized calculus. Approved by Resident Tk Najera MD on 09/19/2024 6:30 AM IMao MD have personally reviewed the image(s) and agree with and/or edited the report Finalized by Mao Varner MD on 09/19/2024 6:46 AM Normal [facility] US Retroperitoneumon 025 SECTRAPACS [facility] Radiology Study observation (narrative) [facility] US RetroperitoneumOrdered By : Mao Varner on 09-19-2024 [facility] Work Phone: UrinalysisOrdered By: Aayush Ewing on 09-19-2024 Bilirubin Ql (U) Negative Negative [facility] Color (U) Colorless Yellow, Colorless [facility] Epithelial cells Auto (Urine sed) [#/Area] 1 0 - 5 [facility] Glucose (U) [Mass/Vol] Negative Negative Pr [facility] Hemoglobin Auto test strip Ql (U) Moderate Abnormal Negative [facility] Interpretation and review of laboratory results Abnormal [facility] Ketones (U) [Mass/Vol] Negative Negative Pr [facility] Leukocyte esterase Auto test strip Ql (U) Small Abnormal Negative [facility] Mucus Ql (Urine sed) Present Abnormal None [facility] Nitrite Auto test strip Ql (U) Negative Negative [facility] pH (U) 5.5 [pH] 5.0 - 8.5 [facility] Protein (U) [Mass/Vol] 70 mg/dL Abnormal Negative Pr [facility] RBC Auto (Urine sed) [#/Area] 17 High 0 - 5 [facility] Specific gravity Refractometry automated (U) [Rel density] 1.013 1.003 - 1.035 [facility] Turbidity Ql (U) Hazy Abnormal Clear [facility] Urobilinogen Qn (U) {Mirza'U}/dL <1.1 eu/dL P [facility] WBC Auto (Urine sed) [#/Area] 39 High 0 - 5 [facility] VITAMIN B12on 09-19-2024 Cobalamin (Vitamin B12) [Mass/Vol] 517 pg/mL Normal 180-914 [facility] Comment on above: Performed By: #### P TT #### [facility] ([facility]) [address] [place] [address] VIR Vitamin B12on 09-19-2024 Cobalamin (Vitamin B12) [Mass/Vol] 517 pg/mL 180 - 914 pg/mL [facility] Interpretation and review of laboratory results Normal [facility] ALL CBC WITH AUTO DIFFon BASOPHILS ABSOLUTE AUTO 0.1 N [facility] Basophils/100 WBC (Bld) 0.7 % 0.2 - 2.0 % [facility] Eosinophils/100 WBC (Bld) 2.3 % 0.9 - 7.0 % [facility] Erythrocyte distribution width (RBC) [Ratio] 14.9 % 11.0 - 15.0 % [facility] Hematocrit (Bld) [Volume fraction] 37.9 % 36.0 - 48.0 % [facility] Hemoglobin (Bld) [Mass/Vol] 11.7 g/dL Low 12.0 - 16.0 g/dL [facility] IMMATURE GRANULOCYTES ABS AUTO 0.05 High [facility] Immature granulocytes/100 WBC (Bld) 0.4 % 0.0 - 0.5 % [facility] Interpretation and review of laboratory results Abnormal [facility] LYMPHOCYTES ABSOLUTE AUTO 0.8 Low [facility] Lymphocytes/100 WBC (Bld) 6.3 % Low 20.5 - 60.0 % [facility] MCH (RBC) [Entitic mass] 27.1 pg 26. 7 - 34.0 pg [facility] MCHC (RBC) [Mass/Vol] 30.9 g/dL 29.9 - 35.2 g/dL [facility] MCV (RBC) [Entitic vol] 87.7 fL 81.0 - 99.0 fL [facility] MONOCYTES ABSOLUTE AUTO 1 High N [facility] Monocytes/100 WBC (Bld) 7.5 % 1.7 - 12.0 % [facility] NEUTROPHILS ABSOLUTE AUTO 10.7 High [facility] Neutrophils/100 WBC (Bld) 82.8 % High 43.0 - 75.0 % [facility] Platelet mean volume (Bld) [Entitic vol] 11.5 fL 9.5 - 13.5 fL [facility] TBH EO # 0.3 [facility] PLT 218 [facility] RBC 4.32 [facility] WBC 12.9 High [facility] CBC AND AUTO DIFFon 09-02-19 25 ABSOLUTE BASOPHIL 0.1 X10E9/L Normal 0.0-0.2 [facility] Comment on above: Performed By: #### C BCA, CMP, 2156-6, 53041-5, 66727-8, 50254-9, PINR, 34409-8, 2639-3 #### [facility] ([id number]) [address] [place] [address] ABSOLUTE NEUTROPHIL 7.5 X10E9/L High 1.5-6.6 [facility] Comment on above: Performed By: #### C BCA, CMP, 2156-, 82630-0, 62523-0, 77060-2, PINR, 86000-8, 2639-3 #### [facility] ([id number]) [address] [place] [address] Basophils/100 WBC (Bld) 0.7 % Normal [facility] Comment on above: Performed By: #### C BCA, CMP, 2156-10, 55482-9, 87718-6, 03742-0, PINR, 54622-6, 2639-3 #### [facility] ([id number]) [address] [place] [address] Eosinophils (Bld) [#/Vol] 0.1 10*3/uL Normal 0.0-0.4 [facility] Comment on above: Performed By: #### C BCA, CMP, 2156-, 42084-3, 57423-4, 90827-9, PINR, 87439-0, 2639-3 #### [facility] ([id number]) [address] [place] [address] Eosinophils/100 WBC (Bld) 1.3 % Normal [facility] Comment on above: Performed By: #### C BCA, CMP, 2156-6, 33295-7, 36617-4, 74487-1, PINR, 01866-7, 2639-3 #### [facility] ([id number]) [address] [place] [address] Erythrocyte distribution width (RBC) [Ratio] 15.4 % High 11.5-15.0 [facility] Comment on above: Performed By: #### C BCA, CMP, 2156-6, 13949-9, 18195-0, 88508-7, PINR, 46043-6, 2639-3 #### [facility] ([id number]) [address] [place] [address] Hematocrit (Bld) [Volume fraction] 36.0 % Normal 35-47 [facility] Comment on above: Performed By: #### C BCA, CMP, 2156-, 55878-8, 99462-6, 44442-2, PINR, 49268-8, 2639-3 #### [facility] ([id number]) [address] [place] [address] Hemoglobin (Bld) [Mass/Vol] 12.2 g/dL Normal 11.7-15.5 [facility] Comment on above: Performed By: #### C BCA, CMP, 2156-, 37716-4, 14906-4, 66297-4, PINR, 18017-9, 2639-3 #### [facility] ([id number]) [address] [place] [address] Lymphocytes (Bld) [#/Vol] 0.9 10*3/uL Low 1.0-3.5 [facility] Comment on above: Performed By: #### C BCA, CMP, 2156-6, 96917-4, 79558-3, 94783-1, PINR, 76599-0, 2639-3 #### [facility] ([id number]) [address] [place] [address] Lymphocytes/100 WBC (Bld) 9.4 % Normal [facility] Comment on above: Performed By: #### C BCA, CMP, 2156-6, 63607-2, 18163-0, 17444-0, PINR, 12476-8, 2639-3 #### [facility] ([id number]) [address] [place] [address] 06792 MCH (RBC) [Entitic mass] 28.0 pg Normal 27-34 [facility] Comment on above: Performed By: #### C BCA, CMP, 7-6, 54082-1, 86113-5, 13337-3, PINR, 90440-1, 2639-3 #### [facility] ([id number]) [address] [place] [address] 82336 MCHC (RBC) [Mass/Vol] 34.0 g/dL Normal 32-36 [facility] Comment on above: Performed By: #### C BCA, CMP, 7-6, 95480-0, 87286-1, 34699-1, PINR, 90164-1, 2639-3 #### [facility] ([id number]) [address] [place] [address] 46412 MCV (RBC) [Entitic vol] 82 fL Normal 80-100 [facility] Comment on above: Performed By: #### C BCA, CMP, 7-6, 78149-6, 66726-5, 18510-2, PINR, 22005-0, 2639-3 #### [facility] ([id number]) [address] [place] [address] 52066 Monocytes (Bld) [#/Vol] 1.4 10*3/uL High 0-0.9 [facility] Comment on above: Performed By: #### C BCA, CMP, 7-6, 81397-0, 14351-0, 07329-0, PINR, 54112-8, 2639-3 #### [facility] ([id number]) [address] [place] [address] 51352 Monocytes/100 WBC (Bld) 13.8 % Normal P [facility] Comment on above: Performed By: #### C BCA, CMP, 2156-6, 90671-2, 45978-9, 88087-8, PINR, 24980-4, 2639-3 #### [facility] ([id number]) [address] [place] [address] 19536 Neutrophils/100 WBC (Bld) 74.8 % Normal [facility] Comment on above: Performed By: #### C BCA, CMP, 2156-6, 28274-4, 82430-7, 01011-4, PINR, 39423-0, 2639-3 #### [facility] ([id number]) [address] [place] [address] 92883 Platelet mean volume (Bld) [Entitic vol] 9.4 fL Normal 7-12 [facility] Comment on above: Performed By: #### C BCA, CMP, 2156-6, 38206-0, 73787-6, 00503-4, PINR, 16634-4, 2639-3 #### [facility] ([id number]) [address] [place] [address] 08825 Platelets (Bld) [#/Vol] 215 10*3/uL Normal 150-450 [facility] Comment on above: Performed By: #### C BCA, CMP, 2156-6, 08950-0, 38034-0, 84481-0, PINR, 37524-5, 2639-3 #### [facility] ([id number]) [address] [place] [address] 60363 RBC COUNT 4.36 X10E12/L Normal 3.80-5.20 [facility] Comment on above: Performed By: #### C BCA, CMP, 2156-6, 48563-4, 37736-8, 27602-5, PINR, 82099-5, 2639-3 #### [facility] ([id number]) [address] [place] [address] 37259 WBC (Bld) [#/Vol] 10.1 10*3/uL Normal 4.0-11.0 [facility] Comment on above: Performed By: #### C BCA, CMP, 2157-6, 66022-6, 15452-6, 55407-2, PINR, 91935-8, 2639-3 #### [facility] ([id number]) [address] [place] [address] 89735 CK [Catalytic activity/Vol]o n 09-01-2024 CPK 188 U/L High 24-170 [facility] Comment on above: Performed By: #### C BCA, CMP, 7-6, 39517-5, 27981-2, 14100-4, PINR, 64992-8, 2639-3 #### [facility] ([id number]) [address] [place] [address] 97830 COMPREHENSIVE METABOLIC PANE Antoni 09-01-2024 Albumin [Mass/Vol] 2.6 g/dL Low 3.2-5.3 [facility] Comment on above: Performed By: #### C BCA, CMP, 7-6, 88448-8, 19023-8, 83252-3, PINR, 99363-2, 2639-3 #### [facility] ([id number]) [address] [place] [address] 11880 ALP [Catalytic activity/Vol] 101 U/L Normal 39-130 [facility] Comment on above: Performed By: #### C BCA, CMP, 7-6, 16423-0, 47687-2, 43391-0, PINR, 12077-6, 2639-3 #### [facility] ([id number]) [address] [place] [address] 40539 ALT [Catalytic activity/Vol] 34 U/L High 0-31 [facility] Comment on above: Performed By: #### C BCA, CMP, 2156-6, 85012-9, 32904-9, 89994-2, PINR, 98909-6, 2639-3 #### [facility] ([id number]) [address] [place] [address] 95623 Anion gap [Moles/Vol] 11 mmol/L Normal 5-15 [facility] Comment on above: Performed By: #### C BCA, CMP, 2156-6, 12550-9, 42788-0, 93867-5, PINR, 39851-6, 2639-3 #### [facility] ([id number]) [address] [place] [address] 96484 AST [Catalytic activity/Vol] 32 U/L Normal 0-41 [facility] Comment on above: Performed By: #### C BCA, CMP, 2156-6, 73739-6, 10498-9, 73476-1, PINR, 43796-8, 2639-3 #### [facility] ([id number]) [address] [place] [address] 80568 Bilirubin [Mass/Vol] 0.5 mg/dL Normal 0.3-1.2 [facility] Comment on above: Performed By: #### C BCA, CMP, 2156-6, 05154-1, 56660-3, 22008-3, PINR, 56359-4, 2639-3 #### [facility] ([id number]) [address] [place] [address] 20227 Calcium [Mass/Vol] 8.5 mg/dL Normal 8.5-10.5 [facility] Comment on above: Performed By: #### C BCA, CMP, 2156-6, 73577-4, 14434-3, 95839-2, PINR, 77145-2, 2639-3 #### [facility] ([id number]) [address] [place] [address] Chloride [Moles/Vol] 106 mmol/L Normal 98-109 [facility] Comment on above: Performed By: #### C BCA, CMP, 2157-6, 57897-4, 87381-4, 97709-6, PINR, 29155-6, 2639-3 #### [facility] ([id number]) [address] [place] [address] 90365 CO2 [Moles/Vol] 24 mmol/L Normal 22-32 [facility] Comment on above: Performed By: #### C BCA, CMP, 7-6, 80555-2, 31740-7, 38155-9, PINR, 26339-9, 2639-3 #### [facility] ([id number]) [address] [place] [address] 34509 Creatinine [Mass/Vol] 0.87 mg/dL Normal 0.40-1.00 [facility] Comment on above: Result Comment: METH OD TRACEABLE TO IDMS STANDARD Performed By: #### C BCA, CMP, 2156-6, 36436-3, 75384-3, 30610-2, PINR, 23552-2, 2639-3 #### [facility] ([id number]) [address] [place] [address] 04120 GFR/1.73 sq M.predicted among non-blacks MDRD (S/P/Bld) [Vol rate/Area] 78 mL/min/{1.73_m2} Normal >59 [facility] Comment on above: Result Comment: Reported eGFR is based on the CKD-EPI 2020 equation that does not use a race coefficient. Performed By: #### C BCA, CMP, 2157-6, 91251-5, 65030-7, 27137-9, PINR, 99556-5, 2639-3 #### [facility] ([id number]) [address] [place] [address] 38924 Glucose [Mass/Vol] 108 mg/dL High 65-99 [facility] Comment on above: Performed By: #### C BCA, CMP, 7-6, 82314-2, 01915-9, 23851-6, PINR, 36498-7, 2639-3 #### [facility] ([id number]) [address] [place] [address] 18996 Potassium [Moles/Vol] 4.1 mmol/L Normal 3.5-5.0 [facility] Comment on above: Performed By: #### C BCA, CMP, 2156-6, 91357-1, 79537-6, 43753-3, PINR, 39247-1, 2639-3 #### [facility] ([id number]) [address] [place] [address] 59700 Protein [Mass/Vol] 6.6 g/dL Normal 6.0-8.0 [facility] Comment on above: Performed By: #### C BCA, CMP, 2156-6, 33260-7, 75699-2, 19601-8, PINR, 65098-5, 2639-3 #### [facility] ([id number]) [address] [place] [address], [place] [address] Sodium [Moles/Vol] 141 mmol/L Normal 134-146 [facility] Comment on above: Performed By: #### C BCA, CMP, 2156-6, 51846-8, 29480-3, 81504-4, PINR, 62281-5, 2639-3 #### [facility] ([id number]) [address] [place] [address] [place] [address] Urea nitrogen [Mass/Vol] 12 mg/dL Normal 5-23 [facility] Comment on above: Performed By: #### C BCA, CMP, 2156-6, 44453-3, 39362-1, 00555-4, PINR, 07322-8, 2639-3 #### [facility] ([id number]) [address] [place] [address] MAGNESIUMon 09-01-2024 Magnesium [Mass/Vol] 2.0 mg/dL Normal 1.8-2.6 [facility] Comment on above: Performed By: #### C BCA, CMP, 2156-6, 70239-6, 49211-6, 27103-2, PINR, 42589-4, 2639-3 #### [facility] ([id number]) [address] [place] [address] Myoglobin [Mass/Vol]on 09-01 SERUM MYOGLOBIN 53.7 ng/mL Normal 14.3-65.8 [facility] Comment on above: Performed By: #### C BCA, CMP, 2156-6, 31539-7, 07226-8, 43459-3, PINR, 88755-4, 2639-3 #### [facility] ([id number]) [address] [place] [address] 98867 CBC AND AUTO DIFFon 09-01-19 25 ABSOLUTE BASOPHIL 0.1 X10E9/L Normal 0.0-0.2 [facility] Comment on above: Performed By: #### C BCA, CMP, 2156-6, 07986-7, 91910-8, 80275-9, PINR, 73964-6, 2639-3 #### [facility] ([id number]) [address] [place] [address] 18231 ABSOLUTE NEUTROPHIL 7.4 X10E9/L High 1.5-6.6 [facility] Comment on above: Performed By: #### C BCA, CMP, 2156-, 21714-2, 04710-0, 70499-6, PINR, 54586-1, 2639-3 #### [facility] ([id number]) [address] [place] [address] 69170 Basophils/100 WBC (Bld) 0.9 % Normal [facility] Comment on above: Performed By: #### C BCA, CMP, 2156-6, 42873-5, 89552-5, 96135-3, PINR, 92506-4, 2639-3 #### [facility] ([id number]) [address] [place] [address] 48563 Eosinophils (Bld) [#/Vol] 0.1 10*3/uL Normal 0.0-0.4 [facility] Comment on above: Performed By: #### C BCA, CMP, 2156-6, 11081-2, 86710-2, 05741-4, PINR, 26344-4, 2639-3 #### [facility] ([id number]) [address] [place] [address] 59688 Eosinophils/100 WBC (Bld) 1.4 % Normal [facility] Comment on above: Performed By: #### C BCA, CMP, 2156-6, 79452-7, 75457-2, 23221-9, PINR, 80769-6, 2639-3 #### [facility] ([id number]) [address] [place] [address] [place] [address] Erythrocyte distribution width (RBC) [Ratio] 15.8 % High 11.5-15.0 [facility] Comment on above: Performed By: #### C BCA, CMP, 2156-6, 79183-2, 88409-3, 46979-2, PINR, 89203-5, 2639-3 #### [facility] ([id number]) [address] [place] [address] 19282 Hematocrit (Bld) [Volume fraction] 35.7 % Normal 35-47 [facility] Comment on above: Performed By: #### C BCA, CMP, 2156-6, 84324-6, 94618-7, 85410-0, PINR, 29369-0, 2639-3 #### [facility] ([id number]) [address] [place] [address] 90516 Hemoglobin (Bld) [Mass/Vol] 12.1 g/dL Normal 11.7-15.5 [facility] Comment on above: Performed By: #### C BCA, CMP, 2156-, 15431-2, 41629-0, 09522-2, PINR, 89844-1, 2639-3 #### [facility] ([id number]) [address] [place] [address] 94460 Lymphocytes (Bld) [#/Vol] 0.8 10*3/uL Low 1.0-3.5 [facility] Comment on above: Performed By: #### C BCA, CMP, 2156-10, 08405-1, 46255-0, 01341-6, PINR, 52200-5, 2639-3 #### [facility] ([id number]) [address] [place] [address] 84654 Lymphocytes/100 WBC (Bld) 8.5 % Normal [facility] Comment on above: Performed By: #### C BCA, CMP, 2156-10, 67778-2, 05951-6, 14071-2, PINR, 74492-8, 2639-3 #### [facility] ([id number]) [address] [place] [address] 28946 MCH (RBC) [Entitic mass] 28.1 pg Normal 27-34 [facility] Comment on above: Performed By: #### C BCA, CMP, 2156-6, 57261-1, 01567-8, 89366-2, PINR, 49100-8, 2639-3 #### [facility] ([id number]) [address] [place] [address] 31964 MCHC (RBC) [Mass/Vol] 33.9 g/dL Normal 32-36 [facility] Comment on above: Performed By: #### C BCA, CMP, 2156-6, 84245-7, 29222-9, 98881-5, PINR, 84026-3, 2639-3 #### [facility] ([id number]) [address] [place] [address] 01345 MCV (RBC) [Entitic vol] 83 fL Normal 80-100 [facility] Comment on above: Performed By: #### C BCA, CMP, 2156-6, 46579-8, 65091-7, 66222-1, PINR, 95514-4, 2639-3 #### [facility] ([id number]) [address] [place] [address] 26765 Monocytes (Bld) [#/Vol] 1.4 10*3/uL High 0-0.9 [facility] Comment on above: Performed By: #### C BCA, CMP, 2156-, 98279-9, 71381-0, 55809-9, PINR, 71739-6, 2639-3 #### [facility] ([id number]) [address] [place] [address] 15371 Monocytes/100 WBC (Bld) 14.1 % Normal [facility] Comment on above: Performed By: #### C BCA, CMP, 2156-6, 86643-9, 21006-2, 29040-3, PINR, 82608-8, 2639-3 #### [facility] ([id number]) [address] [place] [address] 78781 Neutrophils/100 WBC (Bld) 75.1 % Normal [facility] Comment on above: Performed By: #### C BCA, CMP, 2156-6, 13100-0, 65714-6, 30966-1, PINR, 32592-2, 2639-3 #### [facility] ([id number]) [address] [place] [address] 24841 Platelet mean volume (Bld) [Entitic vol] 10.0 fL Normal 7-12 [facility] Comment on above: Performed By: #### C BCA, CMP, 7-6, 18943-5, 42232-8, 18465-6, PINR, 96505-6, 2639-3 #### [facility] ([id number]) [address] [place] [address] 69520 Platelets (Bld) [#/Vol] 206 10*3/uL Normal 150-450 [facility] Comment on above: Performed By: #### C BCA, CMP, 7-6, 16049-9, 72694-0, 60695-3, PINR, 71386-4, 2639-3 #### [facility] ([id number]) [address] [place] [address] 22396 RBC COUNT 4.31 X10E12/L Normal 3.80-5.20 [facility] Comment on above: Performed By: #### C BCA, CMP, 2156-6, 71180-5, 57899-4, 68373-1, PINR, 31303-7, 2639-3 #### [facility] ([id number]) [address] [place] [address] 59608 WBC (Bld) [#/Vol] 9.9 10*3/uL Normal 4.0-11.0 [facility] Comment on above: Performed By: #### C BCA, CMP, 2156-6, 63259-4, 76539-0, 44537-2, PINR, 16290-3, 2639-3 #### [facility] ([id number]) [address] [place] [address] 40707 CK [Catalytic activity/Vol]o n 08-31-2024 CPK 324 U/L High 24-170 [facility] Comment on above: Performed By: #### C BCA, CMP, 7-6, 43304-4, 97323-3, 37763-4, PINR, 16354-5, 2639-3 #### [facility] ([id number]) [address] [place] [address] 21487 CPK 405 U/L High 24-170 [facility] Comment on above: Performed By: #### C BCA, CMP, 2157-6, 77632-5, 93756-4, 45397-0, PINR, 70952-1, 2639-3 #### [facility] ([id number]) [address] [place] [address] 69544 COMPREHENSIVE METABOLIC PANE Antoni 08-31-2024 Albumin [Mass/Vol] 2.5 g/dL Low 3.2-5.3 [facility] Comment on above: Performed By: #### C BCA, CMP, 2157-6, 44181-7, 12096-8, 72489-3, PINR, 93677-2, 2639-3 #### [facility] ([id number]) [address] [place] [address] 70227 ALP [Catalytic activity/Vol] 75 U/L Normal 39-130 [facility] Comment on above: Performed By: #### C BCA, CMP, 2157-6, 95756-1, 83812-7, 83179-9, PINR, 99985-2, 2639-3 #### [facility] ([id number]) [address] [place] [address] 87192 ALT [Catalytic activity/Vol] 31 U/L Normal 0-31 [facility] Comment on above: Performed By: #### C BCA, CMP, 2157-6, 24958-1, 86177-7, 89193-1, PINR, 87045-3, 2639-3 #### [facility] ([id number]) [address] [place] [address] [place] [address] Anion gap [Moles/Vol] 9 mmol/L Normal 5-15 [facility] Comment on above: Performed By: #### C BCA, CMP, 2156-6, 65014-8, 12549-5, 39774-5, PINR, 44447-8, 2639-3 #### [facility] ([id number]) [address] [place] [address] 59233 AST [Catalytic activity/Vol] 36 U/L Normal 0-41 [facility] Comment on above: Performed By: #### C BCA, CMP, 2156-, 95275-6, 52533-4, 74442-7, PINR, 16040-1, 2639-3 #### [facility] ([id number]) [address] [place] [address] 02229 Bilirubin [Mass/Vol] 0.5 mg/dL Normal 0.3-1.2 [facility] Comment on above: Performed By: #### C BCA, CMP, 2156-10, 55748-3, 44154-2, 61946-7, PINR, 11119-7, 2639-3 #### [facility] ([id number]) [address] [place] [address] 51722 Calcium [Mass/Vol] 8.2 mg/dL Low 8.5-10.5 [facility] Comment on above: Performed By: #### C BCA, CMP, 2156-, 57992-2, 55954-6, 44296-3, PINR, 21244-2, 2639-3 #### [facility] ([id number]) [address] [place] [address] 70277 Chloride [Moles/Vol] 107 mmol/L Normal 98-109 [facility] Comment on above: Performed By: #### C BCA, CMP, 2156-, 47772-8, 10308-9, 39458-2, PINR, 84945-4, 2639-3 #### [facility] ([id number]) [address] [place] [address] CO2 [Moles/Vol] 24 mmol/L Normal 22-32 [facility] Comment on above: Performed By: #### C BCA, CMP, 2156-, 54901-1, 38009-8, 71781-3, PINR, 66897-4, 2639-3 #### [facility] ([id number]) [address] [place] [address] 94863 Creatinine [Mass/Vol] 0.83 mg/dL Normal 0.40-1.00 [facility] Comment on above: Result Comment: METH OD TRACEABLE TO IDMS STANDARD Performed By: #### C BCA, CMP, 2156-10, , 89216-2, 57796-0, PINR, 98379-3, 2639-3 #### [facility] ([id number]) [address] [place] [address] 12148 GFR/1.73 sq M.predicted among non-blacks MDRD (S/P/Bld) [Vol rate/Area] 83 mL/min/{1.73_m2} Normal >59 [facility] Comment on above: Result Comment: Reported eGFR is based on the CKD-EPI 2020 equation that does not use a race coefficient. Performed By: #### C BCA, CMP, 2156-10, 50345-2, 61016-7, 86703-7, PINR, 13110-9, 2639-3 #### [facility] ([id number]) [address] [place] [address] [place] [address] Glucose [Mass/Vol] 101 mg/dL High 65-99 [facility] Comment on above: Performed By: #### C BCA, CMP, 2156-10, 76700-4, 65493-9, 45916-9, PINR, 51481-3, 2639-3 #### [facility] ([id number]) [address] [place] [address] 31869 Potassium [Moles/Vol] 3.7 mmol/L Normal 3.5-5.0 [facility] Comment on above: Performed By: #### C BCA, CMP, 7-6, 46667-3, 28336-9, 68498-2, PINR, 10884-7, 2639-3 #### [facility] ([id number]) [address] [place] [address] 39625 Protein [Mass/Vol] 6.3 g/dL Normal 6.0-8.0 [facility] Comment on above: Performed By: #### C BCA, CMP, 2156-6, 81381-8, 28693-4, 03219-7, PINR, 85584-4, 2639-3 #### [facility] ([id number]) [address] [place] [address] 92638 Sodium [Moles/Vol] 140 mmol/L Normal 134-146 [facility] Comment on above: Performed By: #### C BCA, CMP, 2156-6, 02357-3, 35801-1, 13350-0, PINR, 62225-6, 2639-3 #### [facility] ([id number]) [address] [place] [address] 58829 Urea nitrogen [Mass/Vol] 8 mg/dL Normal 5-23 [facility] Comment on above: Performed By: #### C BCA, CMP, 2156-6, 72780-8, 89518-3, 14905-9, PINR, 58031-6, 2639-3 #### [facility] ([id number]) [address] [place] [address] 35124 MAGNESIUMon 08-31-2024 Magnesium [Mass/Vol] 2.0 mg/dL Normal 1.8-2.6 [facility] Comment on above: Performed By: #### C BCA, CMP, 2156-6, 85380-4, 65995-9, 44359-1, PINR, 37069-5, 2639-3 #### [facility] ([id number]) [address] [place] [address] 22121 Myoglobin [Mass/Vol]on 08-31 SERUM MYOGLOBIN 47.5 ng/mL Normal 14.3-65.8 [facility] Comment on above: Performed By: #### C BCA, CMP, 2156-6, 65750-9, 04099-5, 98513-1, PINR, 69089-0, 2639-3 #### [facility] ([id number]) [address] [place] [address] 72667 SERUM MYOGLOBIN 62.9 ng/mL Normal 14.3-65.8 [facility] Comment on above: Performed By: #### C BCA, CMP, 2156-6, 92322-9, 09860-5, 26434-6, PINR, 68361-2, 2639-3 #### [facility] ([id number]) [address] [place] [address] 82442 POTASSIUMon 08-31-2024 Potassium [Moles/Vol] 4.0 mmol/L Normal 3.5-5.0 [facility] Comment on above: Performed By: #### C BCA, CMP, 2156-6, 28121-7, 23821-9, 18878-2, PINR, 65233-1, 2639-3 #### [facility] ([id number]) [address] [place] [address] 66948 CBC AND AUTO DIFFon 08-31-19 25 ABSOLUTE BASOPHIL 0.1 X10E9/L Normal 0.0-0.2 [facility] Comment on above: Performed By: #### C BCA, CMP, 2156-6, 93495-2, 38985-2, 33398-8, PINR, 80633-4, 2639-3 #### [facility] ([id number]) [address] [place] [address] 18274 ABSOLUTE NEUTROPHIL 9.5 X10E9/L High 1.5-6.6 [facility] Comment on above: Performed By: #### C BCA, CMP, 2156-6, 87840-4, 51155-6, 14121-2, PINR, 47359-0, 2639-3 #### [facility] ([id number]) [address] [place] [address] 05717 Basophils/100 WBC (Bld) 0.5 % Normal [facility] Comment on above: Performed By: #### C BCA, CMP, 2156-6, 13590-1, 66250-5, 06679-8, PINR, 70401-9, 2639-3 #### [facility] ([id number]) [address] [place] [address] [place] [address] Eosinophils (Bld) [#/Vol] 0.0 10*3/uL Normal 0.0-0.4 [facility] Comment on above: Performed By: #### C BCA, CMP, 2156-6, 24369-8, 73840-1, 16822-2, PINR, 45586-4, 2639-3 #### [facility] ([id number]) [address] [place] [address] 14422 Eosinophils/100 WBC (Bld) 0.3 % Normal [facility] Comment on above: Performed By: #### C BCA, CMP, 2156-6, 06092-3, 83331-2, 26445-7, PINR, 92596-8, 2639-3 #### [facility] ([id number]) [address] [place] [address] [place] [address] Erythrocyte distribution width (RBC) [Ratio] 15.0 % Normal 11.5-15.0 [facility] Comment on above: Performed By: #### C BCA, CMP, 2156-6, 62287-6, 47174-2, 99811-2, PINR, 57430-6, 2639-3 #### [facility] ([id number]) [address] [place] [address] 77438 Hematocrit (Bld) [Volume fraction] 36.8 % Normal 35-47 [facility] Comment on above: Performed By: #### C BCA, CMP, 2156-6, 80286-4, 44805-8, 29475-7, PINR, 09702-3, 2639-3 #### [facility] ([id number]) [address] [place] [address] 78340 Hemoglobin (Bld) [Mass/Vol] 12.4 g/dL Normal 11.7-15.5 [facility] Comment on above: Performed By: #### C BCA, CMP, 2156-, 01054-3, 28341-5, 16947-2, PINR, 30415-7, 2639-3 #### [facility] ([id number]) [address] [place] [address] 02646 Lymphocytes (Bld) [#/Vol] 0.7 10*3/uL Low 1.0-3.5 [facility] Comment on above: Performed By: #### C BCA, CMP, 2156-6, 49686-2, 87180-7, 28152-7, PINR, 35885-0, 2639-3 #### [facility] ([id number]) [address] [place] [address] 43776 Lymphocytes/100 WBC (Bld) 5.8 % Normal [facility] Comment on above: Performed By: #### C BCA, CMP, 2156-6, 17331-2, 76125-8, 12328-9, PINR, 57281-4, 2639-3 #### [facility] ([id number]) [address] [place] [address] 67156 MCH (RBC) [Entitic mass] 28.0 pg Normal 27-34 [facility] Comment on above: Performed By: #### C BCA, CMP, 2156-6, 13817-3, 23131-8, 09933-8, PINR, 37250-6, 2639-3 #### [facility] ([id number]) [address] [place] [address] 16414 MCHC (RBC) [Mass/Vol] 33.6 g/dL Normal 32-36 [facility] Comment on above: Performed By: #### C BCA, CMP, 2156-6, 91304-7, 52079-4, 05526-3, PINR, 40658-4, 2639-3 #### [facility] ([id number]) [address] [place] [address] 11767 MCV (RBC) [Entitic vol] 83 fL Normal 80-100 [facility] Comment on above: Performed By: #### C BCA, CMP, 2156-, 68137-9, 23681-1, 31337-5, PINR, 81860-7, 2639-3 #### [facility] ([id number]) [address] [place] [address] 55762 Monocytes (Bld) [#/Vol] 1.1 10*3/uL High 0-0.9 [facility] Comment on above: Performed By: #### C BCA, CMP, 2156-, 90246-9, 05677-2, 31668-3, PINR, 55929-8, 2639-3 #### [facility] ([id number]) [address] [place] [address] 57789 Monocytes/100 WBC (Bld) 9.8 % Normal [facility] Comment on above: Performed By: #### C BCA, CMP, 2156-6, 73720-6, 14573-3, 88377-9, PINR, 04268-1, 2639-3 #### [facility] ([id number]) [address] [place] [address] 10088 Neutrophils/100 WBC (Bld) 83.6 % Normal [facility] Comment on above: Performed By: #### C BCA, CMP, 2156-6, 05278-0, 13854-9, 97260-7, PINR, 34156-8, 2639-3 #### [facility] ([id number]) [address] [place] [address] 67491 Platelet mean volume (Bld) [Entitic vol] 9.6 fL Normal 7-12 [facility] Comment on above: Performed By: #### C BCA, CMP, 2156-6, 81474-8, 00549-6, 88123-4, PINR, 46922-6, 2639-3 #### [facility] ([id number]) [address] [place] [address] 49709 Platelets (Bld) [#/Vol] 202 10*3/uL Normal 150-450 [facility] Comment on above: Performed By: #### C BCA, CMP, 2156-6, 91426-5, 47176-4, 79160-4, PINR, 24376-7, 2639-3 #### [facility] ([id number]) [address] [place] [address] 81525 RBC COUNT 4.41 X10E12/L Normal 3.80-5.20 [facility] Comment on above: Performed By: #### C BCA, CMP, 2156-6, 68103-9, 64975-8, 49361-7, PINR, 34137-4, 2639-3 #### [facility] ([id number]) [address] [place] [address] 06673 WBC (Bld) [#/Vol] 11.4 10*3/uL High 4.0-11.0 [facility] Comment on above: Performed By: #### C BCA, CMP, 2156-6, 07445-3, 59022-8, 55334-6, PINR, 63278-0, 2639-3 #### [facility] ([id number]) [address] [place] [address] 95074 CK [Catalytic activity/Vol]o n 08-30-2024 CPK 563 U/L High 24-170 [facility] Comment on above: Performed By: #### C BCA, CMP, 2157-6, 33870-8, 37886-5, 73221-8, PINR, 14327-2, 2639-3 #### [facility] ([id number]) [address] [place] [address] 31396 CPK 831 U/L High 24-170 [facility] Comment on above: Performed By: #### C BCA, CMP, 2157-6, 27785-0, 49095-2, 64632-8, PINR, 44471-4, 2639-3 #### [facility] ([id number]) [address] [place] [address] 44804 CPK 1066 U/L High 24-170 [facility] Comment on above: Performed By: #### C BCA, CMP, 2157-6, 28890-3, 35568-7, 66533-7, PINR, 58303-6, 2639-3 #### [facility] ([id number]) [address] [place] [address] 03519 COMPREHENSIVE METABOLIC PANE Antoni 08-30-2024 Albumin [Mass/Vol] 2.7 g/dL Low 3.2-5.3 [facility] Comment on above: Performed By: #### C BCA, CMP, 2157-6, 32200-2, 94676-5, 30908-9, PINR, 81813-5, 2639-3 #### [facility] ([id number]) [address] [place] [address] 55229 ALP [Catalytic activity/Vol] 57 U/L Normal 39-130 [facility] Comment on above: Performed By: #### C BCA, CMP, 7-6, 64223-9, 92912-6, 12982-1, PINR, 62413-1, 2639-3 #### [facility] ([id number]) [address] [place] [address] 71930 ALT [Catalytic activity/Vol] 36 U/L High 0-31 [facility] Comment on above: Performed By: #### C BCA, CMP, 7-6, 88975-2, 97769-6, 29761-5, PINR, 02766-8, 2639-3 #### [facility] ([id number]) [address] [place] [address] 51402 Anion gap [Moles/Vol] 11 mmol/L Normal 5-15 [facility] Comment on above: Performed By: #### C BCA, CMP, 2156-6, 20426-9, 98970-2, 78582-6, PINR, 87395-6, 2639-3 #### [facility] ([id number]) [address] [place] [address] 50763 AST [Catalytic activity/Vol] 52 U/L High 0-41 [facility] Comment on above: Performed By: #### C BCA, CMP, 2156-6, 08345-5, 80590-0, 69222-8, PINR, 79670-2, 2639-3 #### [facility] ([id number]) [address] [place] [address] 52005 Bilirubin [Mass/Vol] 0.6 mg/dL Normal 0.3-1.2 [facility] Comment on above: Performed By: #### C BCA, CMP, 2157-6, 82431-6, 89809-6, 43613-5, PINR, 38682-5, 2639-3 #### [facility] ([id number]) [address] [place] [address], [place] [address] Calcium [Mass/Vol] 8.2 mg/dL Low 8.5-10.5 [facility] Comment on above: Performed By: #### C BCA, CMP, 7-6, 13754-6, 68138-3, 93620-3, PINR, 24713-7, 2639-3 #### [facility] ([id number]) [address] [place] [address] 32727 Chloride [Moles/Vol] 106 mmol/L Normal 98-109 [facility] Comment on above: Performed By: #### C BCA, CMP, 2156-6, 30983-5, 53267-8, 76323-5, PINR, 39241-7, 2639-3 #### [facility] ([id number]) [address] [place] [address] 02567 CO2 [Moles/Vol] 21 mmol/L Low 22-32 [facility] Comment on above: Performed By: #### C BCA, CMP, 2156-6, 04502-0, 48496-1, 47097-5, PINR, 25854-6, 2639-3 #### [facility] ([id number]) [address] [place] [address] 06401 Creatinine [Mass/Vol] 0.87 mg/dL Normal 0.40-1.00 [facility] Comment on above: Result Comment: METH OD TRACEABLE TO IDMS STANDARD Performed By: #### C BCA, CMP, 2156-6, 79937-5, 29134-3, 37019-6, PINR, 40950-9, 2639-3 #### [facility] ([id number]) [address] [place] [address] 05370 GFR/1.73 sq M.predicted among non-blacks MDRD (S/P/Bld) [Vol rate/Area] 78 mL/min/{1.73_m2} Normal >59 [facility] Comment on above: Result Comment: Reported eGFR is based on the CKD-EPI 2020 equation that does not use a race coefficient. Performed By: #### C BCA, CMP, 7-6, 12136-1, 46881-7, 74028-4, PINR, 67893-5, 2639-3 #### [facility] ([id number]) [address] [place] [address] 49919 Glucose [Mass/Vol] 107 mg/dL High 65-99 [facility] Comment on above: Performed By: #### C BCA, CMP, 2156-6, 45011-0, 40519-0, 11443-0, PINR, 27705-7, 2639-3 #### [facility] ([id number]) [address] [place] [address] 46866 Potassium [Moles/Vol] 3.9 mmol/L Normal 3.5-5.0 [facility] Comment on above: Performed By: #### C BCA, CMP, 2156-6, 69595-4, 09882-5, 27213-9, PINR, 41286-2, 2639-3 #### [facility] ([id number]) [address] [place] [address] 43388 Protein [Mass/Vol] 6.2 g/dL Normal 6.0-8.0 [facility] Comment on above: Performed By: #### C BCA, CMP, 2156-6, 83443-5, 55793-8, 67596-4, PINR, 83567-9, 2639-3 #### [facility] ([id number]) [address] [place] [address] 34708 Sodium [Moles/Vol] 138 mmol/L Normal 134-146 [facility] Comment on above: Performed By: #### C BCA, CMP, 2156-6, 77245-6, 00060-1, 11140-3, PINR, 67900-6, 2639-3 #### [facility] ([id number]) [address] [place] [address] 74221 Urea nitrogen [Mass/Vol] 6 mg/dL Normal 5-23 [facility] Comment on above: Performed By: #### C BCA, CMP, 7-6, 44795-4, 57553-2, 92690-5, PINR, 51754-4, 2639-3 #### [facility] ([id number]) [address] [place] [address] 02708 MAGNESIUMon 08-30-2024 Magnesium [Mass/Vol] 2.0 mg/dL Normal 1.8-2.6 [facility] Comment on above: Performed By: #### C BCA, CMP, 2156-6, 75278-1, 38690-9, 58254-5, PINR, 02183-1, 2639-3 #### [facility] ([id number]) [address] [place] [address] 76830 Myoglobin [Mass/Vol]on 08-30 SERUM MYOGLOBIN 67.5 ng/mL High 14.3-65.8 [facility] Comment on above: Performed By: #### C BCA, CMP, 2156-6, 35739-7, 34106-5, 15036-3, PINR, 41884-7, 2639-3 #### [facility] ([id number]) [address] [place] [address] 95369 SERUM MYOGLOBIN 127.2 ng/mL High 14.3-65.8 [facility] Comment on above: Performed By: #### C BCA, CMP, 2156-6, 73058-7, 08359-4, 58034-9, PINR, 20622-6, 2639-3 #### [facility] ([id number]) [address] [place] [address] 28681 SERUM MYOGLOBIN 77.9 ng/mL High 14.3-65.8 [facility] Comment on above: Performed By: #### C BCA, CMP, 2157-6, 77975-8, 10015-5, 62498-1, PINR, 07587-8, 2639-3 #### [facility] ([id number]) [address] [place] [address] 51427 CBC AND AUTO DIFFon 08-30-19 25 ABSOLUTE BASOPHIL 0.0 X10E9/L Normal 0.0-0.2 [facility] Comment on above: Performed By: #### C BCA, CMP, 2156-6, 58799-5, 08091-3, 79711-8, PINR, 89017-0, 2639-3 #### [facility] ([id number]) [address] [place] [address] [place] [address] ABSOLUTE NEUTROPHIL 5.8 X10E9/L Normal 1.5-6.6 [facility] Comment on above: Performed By: #### C BCA, CMP, 2156-6, 97871-2, 73389-2, 56519-1, PINR, 96448-1, 2639-3 #### [facility] ([id number]) [address] [place] [address] [place] [address] Basophils/100 WBC (Bld) 0.5 % Normal [facility] Comment on above: Performed By: #### C BCA, CMP, 2156-6, 28783-0, 06342-9, 29391-2, PINR, 80262-3, 2639-3 #### [facility] ([id number]) [address] [place] [address] 89597 Eosinophils (Bld) [#/Vol] 0.1 10*3/uL Normal 0.0-0.4 [facility] Comment on above: Performed By: #### C BCA, CMP, 7-6, 75245-4, 08051-1, 95492-3, PINR, 39659-1, 2639-3 #### [facility] ([id number]) [address] [place] [address] 97933 Eosinophils/100 WBC (Bld) 1.6 % Normal [facility] Comment on above: Performed By: #### C BCA, CMP, 7-6, 80736-7, 78431-5, 69090-8, PINR, 50538-8, 2639-3 #### [facility] ([id number]) [address] [place] [address] 80392 Erythrocyte distribution width (RBC) [Ratio] 15.7 % High 11.5-15.0 [facility] Comment on above: Performed By: #### C BCA, CMP, 2156-6, 05440-7, 67277-5, 46506-5, PINR, 98646-5, 2639-3 #### [facility] ([id number]) [address] [place] [address] 56564 Hematocrit (Bld) [Volume fraction] 36.8 % Normal 35-47 [facility] Comment on above: Performed By: #### C BCA, CMP, 2156-6, 25542-4, 21663-0, 25152-4, PINR, 34798-3, 2639-3 #### [facility] ([id number]) [address] [place] [address] 58915 Hemoglobin (Bld) [Mass/Vol] 12.3 g/dL Normal 11.7-15.5 [facility] Comment on above: Performed By: #### C BCA, CMP, 2156-6, 48056-6, 47038-3, 53260-2, PINR, 63516-2, 2639-3 #### [facility] ([id number]) [address] [place] [address] 66405 Lymphocytes (Bld) [#/Vol] 0.9 10*3/uL Low 1.0-3.5 [facility] Comment on above: Performed By: #### C BCA, CMP, 2156-, 48067-7, 68366-8, 57590-3, PINR, 21556-1, 2639-3 #### [facility] ([id number]) [address] [place] [address] 98586 Lymphocytes/100 WBC (Bld) 11.3 % Normal [facility] Comment on above: Performed By: #### C BCA, CMP, 2156-, 53459-2, 19347-1, 90132-4, PINR, 67145-6, 2639-3 #### [facility] ([id number]) [address] [place] [address] 68763 MCH (RBC) [Entitic mass] 27.8 pg Normal 27-34 [facility] Comment on above: Performed By: #### C BCA, CMP, 2156-10, 24948-2, 59278-9, 24727-1, PINR, 45963-0, 2639-3 #### [facility] ([id number]) [address] [place] [address] 71102 MCHC (RBC) [Mass/Vol] 33.4 g/dL Normal 32-36 [facility] Comment on above: Performed By: #### C BCA, CMP, 2156-10, 65466-6, 43613-0, 68802-1, PINR, 94027-5, 2639-3 #### [facility] ([id number]) [address] [place] [address] 82176 MCV (RBC) [Entitic vol] 83 fL Normal 80-100 [facility] Comment on above: Performed By: #### C BCA, CMP, 2156-, 57177-9, 31446-2, 11312-2, PINR, 50082-7, 2639-3 #### [facility] ([id number]) [address] [place] [address] 79189 Monocytes (Bld) [#/Vol] 0.8 10*3/uL Normal 0-0.9 [facility] Comment on above: Performed By: #### C BCA, CMP, 2156-6, 63967-0, 28367-8, 46815-5, PINR, 32358-7, 2639-3 #### [facility] ([id number]) [address] [place] [address] 15253 Monocytes/100 WBC (Bld) 10.5 % Normal [facility] Comment on above: Performed By: #### C BCA, CMP, 2156-, 64467-8, 42706-4, 73787-9, PINR, 15928-9, 2639-3 #### [facility] ([id number]) [address] [place] [address] 43079 Neutrophils/100 WBC (Bld) 76.1 % Normal [facility] Comment on above: Performed By: #### C BCA, CMP, 2156-6, 04214-0, 81472-1, 79523-1, PINR, 21069-8, 2639-3 #### [facility] ([id number]) [address] [place] [address] 71195 Platelet mean volume (Bld) [Entitic vol] 9.1 fL Normal 7-12 [facility] Comment on above: Performed By: #### C BCA, CMP, 2156-6, 15773-6, 36755-9, 42800-4, PINR, 03641-2, 2639-3 #### [facility] ([id number]) [address] [place] [address] 92529 Platelets (Bld) [#/Vol] 188 10*3/uL Normal 150-450 [facility] Comment on above: Performed By: #### C BCA, CMP, 2156-, 03295-4, 60858-9, 49700-3, PINR, 97184-7, 2639-3 #### [facility] ([id number]) [address] [place] [address] 82517 RBC COUNT 4.42 X10E12/L Normal 3.80-5.20 [facility] Comment on above: Performed By: #### C BCA, CMP, 2157-6, 10024-5, 62056-9, 05978-2, PINR, 62216-2, 2639-3 #### [facility] ([id number]) [address] [place] [address] 29715 WBC (Bld) [#/Vol] 7.7 10*3/uL Normal 4.0-11.0 [facility] Comment on above: Performed By: #### C BCA, CMP, 2157-6, 69341-1, 14953-8, 37117-4, PINR, 92231-7, 2639-3 #### [facility] ([id number]) [address] [place] [address] 76829 CK [Catalytic activity/Vol]o n 08-29-2024 CPK 1666 U/L High 24-170 [facility] Comment on above: Performed By: #### C BCA, CMP, 2157-6, 23964-3, 26179-5, 10082-8, PINR, 87980-5, 2639-3 #### [facility] ([id number]) [address] [place] [address] 77427 CPK 2774 U/L High 24-170 [facility] Comment on above: Performed By: #### C BCA, CMP, 2157-6, 09294-0, 29506-9, 59069-6, PINR, 17137-8, 2639-3 #### [facility] ([id number]) [address] [place] [address] 52369 CPK 3580 U/L High 24-170 [facility] Comment on above: Performed By: #### C BCA, CMP, 2157-6, 23688-9, 94155-1, 46443-8, PINR, 50979-0, 2639-3 #### [facility] ([id number]) [address] [place] [address] 60737 COMPREHENSIVE METABOLIC PANE Antoni 08-29-2024 Albumin [Mass/Vol] 2.7 g/dL Low 3.2-5.3 [facility] Comment on above: Performed By: #### C BCA, CMP, 7-6, 71902-7, 83881-7, 71788-0, PINR, 79284-1, 2639-3 #### [facility] ([id number]) [address] [place] [address] 89147 ALP [Catalytic activity/Vol] 60 U/L Normal 39-130 [facility] Comment on above: Performed By: #### C BCA, CMP, 2156-6, 38648-9, 74977-5, 61376-2, PINR, 02761-4, 2639-3 #### [facility] ([id number]) [address] [place] [address] 63286 ALT [Catalytic activity/Vol] 46 U/L High 0-31 [facility] Comment on above: Performed By: #### C BCA, CMP, 2156-6, 36751-8, 43826-9, 23949-9, PINR, 91278-2, 2639-3 #### [facility] ([id number]) [address] [place] [address] 36167 Anion gap [Moles/Vol] 8 mmol/L Normal 5-15 [facility] Comment on above: Performed By: #### C BCA, CMP, 2157-6, 71218-8, 10932-6, 47584-8, PINR, 50215-3, 2639-3 #### [facility] ([id number]) [address] [place] [address], [place] [address] AST [Catalytic activity/Vol] 94 U/L High 0-41 [facility] Comment on above: Performed By: #### C BCA, CMP, 2156-, 83431-9, 56016-2, 19521-9, PINR, 51682-5, 2639-3 #### [facility] ([id number]) [address] [place] [address] 98910 Bilirubin [Mass/Vol] 0.5 mg/dL Normal 0.3-1.2 [facility] Comment on above: Performed By: #### C BCA, CMP, 2156-10, 95018-0, 02692-5, 18882-3, PINR, 87204-8, 2639-3 #### [facility] ([id number]) [address] [place] [address] 93466 Calcium [Mass/Vol] 8.0 mg/dL Low 8.5-10.5 [facility] Comment on above: Performed By: #### C BCA, CMP, 2156-10, 32348-3, 24585-4, 33962-0, PINR, 06852-5, 2639-3 #### [facility] ([id number]) [address] [place] [address] 61679 Chloride [Moles/Vol] 112 mmol/L High 98-109 [facility] Comment on above: Performed By: #### C BCA, CMP, 2156-10, 56269-2, 84987-2, 73496-4, PINR, 42115-0, 2639-3 #### [facility] ([id number]) [address] [place] [address] 03159 CO2 [Moles/Vol] 20 mmol/L Low 22-32 [facility] Comment on above: Performed By: #### C BCA, CMP, 2156-, 94895-4, 12913-6, 68680-3, PINR, 31633-4, 2639-3 #### [facility] ([id number]) [address] [place] [address] 43654 Creatinine [Mass/Vol] 0.86 mg/dL Normal 0.40-1.00 [facility] Comment on above: Result Comment: METH OD TRACEABLE TO IDMS STANDARD Performed By: #### C BCA, CMP, 7-6, 39888-9, 14949-7, 07175-2, PINR, 17520-4, 2639-3 #### [facility] ([id number]) [address] [place] [address] 35992 GFR/1.73 sq M.predicted among non-blacks MDRD (S/P/Bld) [Vol rate/Area] 79 mL/min/{1.73_m2} Normal >59 [facility] Comment on above: Result Comment: Reported eGFR is based on the CKD-EPI 2020 equation that does not use a race coefficient. Performed By: #### C BCA, CMP, 2156-6, 24196-4, 27216-2, 69551-9, PINR, 24204-7, 2639-3 #### [facility] ([id number]) [address] [place] [address] 00809 Glucose [Mass/Vol] 91 mg/dL Normal 65-99 [facility] Comment on above: Performed By: #### C BCA, CMP, 2156-6, 96717-0, 10520-1, 69696-3, PINR, 30755-5, 2639-3 #### [facility] ([id number]) [address] [place] [address] 53357 Potassium [Moles/Vol] 4.0 mmol/L Normal 3.5-5.0 [facility] Comment on above: Performed By: #### C BCA, CMP, 7-6, 00870-3, 95467-7, 15496-1, PINR, 32756-2, 2639-3 #### [facility] ([id number]) [address] [place] [address] 82309 Protein [Mass/Vol] 6.4 g/dL Normal 6.0-8.0 [facility] Comment on above: Performed By: #### C BCA, CMP, 2157-6, 71033-6, 54574-1, 70402-6, PINR, 51741-4, 2639-3 #### [facility] ([id number]) [address] [place] [address] 18862 Sodium [Moles/Vol] 140 mmol/L Normal 134-146 [facility] Comment on above: Performed By: #### C BCA, CMP, 7-6, 97418-1, 35481-9, 44898-7, PINR, 19414-4, 2639-3 #### [facility] ([id number]) [address] [place] [address] 58658 Urea nitrogen [Mass/Vol] 10 mg/dL Normal 5-23 [facility] Comment on above: Performed By: #### C BCA, CMP, 7-6, 46756-9, 01357-4, 09123-3, PINR, 95690-1, 2639-3 #### [facility] ([id number]) [address] [place] [address] 56704 Calcium.ionized (Bld) [Moles /Vol]on 08-29-2024 PORTABLE ICA 4.6 mg/dL Normal 4.5-5.3 [facility] Comment on above: Performed By: #### C BCA, CMP, 7-6, 89305-3, 87921-0, 90201-0, PINR, 11127-5, 2639-3 #### [facility] ([id number]) [address] [place] [address] 50986 Lipid 1996 panelon Cholesterol [Mass/Vol] 151 mg/dL Normal 150-200 [facility] Comment on above: Performed By: #### C BCA, CMP, 7-6, 74891-6, 71902-9, 92496-4, PINR, 50112-0, 2639-3 #### [facility] ([id number]) [address] [place] [address] 10787 Cholesterol in HDL [Mass/Vol] 29 mg/dL Low >39 [facility] Comment on above: Result Comment: HDL <40 mg/dL - High Risk HDL > or = 40mg/dL- Desirable HDL >60 mg/dL - Negative Risk Performed By: #### C BCA, CMP, 2156-6, 62495-7, 75771-9, 00673-6, PINR, 66946-5, 2639-3 #### [facility] ([id number]) [address] [place] [address] 30502 Cholesterol in LDL [Mass/Vol] 100 mg/dL Normal <130 [facility] Comment on above: Result Comment: LDL <100 mg/dL - Desirable LDL >160 mg/dL - High Risk Performed By: #### C BCA, CMP, 2156-6, 18588-4, 77917-3, 24834-9, PINR, 33794-3, 2639-3 #### [facility] ([id number]) [address] [place] [address] 75850 Cholesterol in VLDL [Mass/Vol] 22 mg/dL Normal 0-30 [facility] Comment on above: Performed By: #### C BCA, CMP, 7-6, 15477-2, 13703-0, 63916-1, PINR, 89145-7, 2639-3 #### [facility] ([id number]) [address] [place] [address] 76508 CHOLESTEROL:HDL 5.2 High 1.0-5.0 [facility] Comment on above: Performed By: #### C BCA, CMP, 2156-, 75515-1, 68683-4, 35778-8, PINR, 81020-1, 2639-3 #### [facility] ([id number]) [address] [place] [address] 75884 Triglyceride [Mass/Vol] 112 mg/dL Normal 27-150 [facility] Comment on above: Performed By: #### C BCA, CMP, 2156-, 97827-0, 34147-2, 97311-5, PINR, 97308-3, 2639-3 #### [facility] ([id number]) [address] [place] [address] 49681 MAGNESIUMon 08-29-2024 Magnesium [Mass/Vol] 2.1 mg/dL Normal 1.8-2.6 [facility] Comment on above: Performed By: #### C BCA, CMP, 2156-, 06299-6, 40976-5, 18644-3, PINR, 53777-3, 2639-3 #### [facility] ([id number]) [address] [place] [address] 65698 Magnesium [Mass/Vol] 1.9 mg/dL Normal 1.8-2.6 [facility] Comment on above: Performed By: #### C BCA, CMP, 2156-, 37097-9, 28634-4, 18578-1, PINR, 46582-0, 2639-3 #### [facility] ([id number]) [address] [place] [address] 07480 Myoglobin [Mass/Vol]on 08-29 SERUM MYOGLOBIN 96.4 ng/mL High 14.3-65.8 [facility] Comment on above: Performed By: #### C BCA, CMP, 2156-6, 25475-1, 24907-0, 93936-8, PINR, 02232-0, 2639-3 #### [facility] ([id number]) [address] [place] [address] 08732 SERUM MYOGLOBIN 230.3 ng/mL High 14.3-65.8 [facility] Comment on above: Performed By: #### C BCA, CMP, 2156-6, 93217-5, 53185-3, 70494-6, PINR, 96333-7, 2639-3 #### [facility] ([id number]) [address] [place] [address] [place] [address] SERUM MYOGLOBIN 374.0 ng/mL High 14.3-65.8 [facility] Comment on above: Performed By: #### C BCA, CMP, 2156-6, 36834-7, 99400-4, 14531-2, PINR, 15539-0, 2639-3 #### [facility] ([id number]) [address] [place] [address] [place] [address] CBC AND AUTO DIFFon 08-29-19 25 ABSOLUTE BASOPHIL 0.0 X10E9/L Normal 0.0-0.2 [facility] Comment on above: Performed By: #### C BCA, CMP, 2156-6, 52321-8, 34235-5, 38420-2, PINR, 15854-5, 2639-3 #### [facility] ([id number]) [address] [place] [address] 44053 ABSOLUTE NEUTROPHIL 12.1 X10E9/L High 1.5-6.6 [facility] Comment on above: Performed By: #### C BCA, CMP, 2156-6, 88479-0, 99254-0, 72946-0, PINR, 17680-1, 2639-3 #### [facility] ([id number]) [address] [place] [address] 58683 Basophils/100 WBC (Bld) 0.2 % Normal [facility] Comment on above: Performed By: #### C BCA, CMP, 2156-6, 48389-4, 18383-8, 56195-6, PINR, 75471-5, 2639-3 #### [facility] ([id number]) [address] [place] [address] 05581 Eosinophils (Bld) [#/Vol] 0.0 10*3/uL Normal 0.0-0.4 [facility] Comment on above: Performed By: #### C BCA, CMP, 2156-6, 19986-3, 69717-2, 63406-9, PINR, 22592-9, 2639-3 #### [facility] ([id number]) [address] [place] [address] 14211 Eosinophils/100 WBC (Bld) 0.1 % Normal [facility] Comment on above: Performed By: #### C BCA, CMP, 2156-6, 84717-8, 62612-8, 82923-2, PINR, 94133-9, 2639-3 #### [facility] ([id number]) [address] [place] [address] 91215 Erythrocyte distribution width (RBC) [Ratio] 15.7 % High 11.5-15.0 [facility] Comment on above: Performed By: #### C BCA, CMP, 2156-6, 44790-7, 73435-3, 43866-1, PINR, 32129-6, 2639-3 #### [facility] ([id number]) [address] [place] [address] 90887 Hematocrit (Bld) [Volume fraction] 40.3 % Normal 35-47 [facility] Comment on above: Performed By: #### C BCA, CMP, 2156-6, 38288-3, 54020-9, 74075-6, PINR, 92355-7, 2639-3 #### [facility] ([id number]) [address] [place] [address] 23514 Hemoglobin (Bld) [Mass/Vol] 13.5 g/dL Normal 11.7-15.5 [facility] Comment on above: Performed By: #### C BCA, CMP, 2156-6, 11872-6, 40899-6, 44460-6, PINR, 22738-8, 2639-3 #### [facility] ([id number]) [address] [place] [address] 25906 Lymphocytes (Bld) [#/Vol] 0.6 10*3/uL Low 1.0-3.5 [facility] Comment on above: Performed By: #### C BCA, CMP, 2156-, 82783-9, 34224-4, 80490-1, PINR, 68550-5, 2639-3 #### [facility] ([id number]) [address] [place] [address] 16156 Lymphocytes/100 WBC (Bld) 4.6 % Normal [facility] Comment on above: Performed By: #### C BCA, CMP, 2156-6, 15289-9, 96798-7, 55073-8, PINR, 10714-8, 2639-3 #### [facility] ([id number]) [address] [place] [address] 49032 MCH (RBC) [Entitic mass] 28.0 pg Normal 27-34 [facility] Comment on above: Performed By: #### C BCA, CMP, 2156-6, 79437-3, 86571-3, 52534-2, PINR, 87950-7, 2639-3 #### [facility] ([id number]) [address] [place] [address] MCHC (RBC) [Mass/Vol] 33.6 g/dL Normal 32-36 [facility] Comment on above: Performed By: #### C BCA, CMP, 2156-6, 15855-6, 19014-4, 86191-3, PINR, 97871-7, 2639-3 #### [facility] ([id number]) [address] [place] [address] 32658 MCV (RBC) [Entitic vol] 83 fL Normal 80-100 [facility] Comment on above: Performed By: #### C BCA, CMP, 2156-6, 11109-5, 50303-6, 70326-1, PINR, 28158-4, 2639-3 #### [facility] ([id number]) [address] [place] [address] 36116 Monocytes (Bld) [#/Vol] 1.4 10*3/uL High 0-0.9 [facility] Comment on above: Performed By: #### C BCA, CMP, 2156-6, 46276-3, 82064-6, 46121-9, PINR, 47095-3, 2639-3 #### [facility] ([id number]) [address] [place] [address] 92572 Monocytes/100 WBC (Bld) 9.9 % Normal [facility] Comment on above: Performed By: #### C BCA, CMP, 2156-6, 60689-7, 68515-1, 24446-9, PINR, 85907-4, 2639-3 #### [facility] ([id number]) [address] [place] [address] 22234 Neutrophils/100 WBC (Bld) 85.2 % Normal [facility] Comment on above: Performed By: #### C BCA, CMP, 2156-6, 11653-7, 23204-6, 83832-6, PINR, 79459-6, 2639-3 #### [facility] ([id number]) [address] [place] [address] 99603 Platelet mean volume (Bld) [Entitic vol] 9.0 fL Normal 7-12 [facility] Comment on above: Performed By: #### C BCA, CMP, 2157-6, 33133-8, 27090-3, 02449-5, PINR, 72966-0, 2639-3 #### [facility] ([id number]) [address] [place] [address] 89131 Platelets (Bld) [#/Vol] 239 10*3/uL Normal 150-450 [facility] Comment on above: Performed By: #### C BCA, CMP, 7-6, 94509-6, 80999-2, 00189-1, PINR, 49114-9, 2639-3 #### [facility] ([id number]) [address] [place] [address] 95858 RBC COUNT 4.83 X10E12/L Normal 3.80-5.20 [facility] Comment on above: Performed By: #### C BCA, CMP, 2157-6, 75510-5, 23741-0, 63367-9, PINR, 91478-5, 2639-3 #### [facility] ([id number]) [address] [place] [address] 77461 WBC (Bld) [#/Vol] 14.2 10*3/uL High 4.0-11.0 [facility] Comment on above: Performed By: #### C BCA, CMP, 2157-6, 68890-3, 36747-1, 69533-4, PINR, 25314-7, 2639-3 #### [facility] ([id number]) [address] [place] [address] 76152 CK [Catalytic activity/Vol]o n 08-28-2024 CPK 4648 U/L High 24-170 [facility] Comment on above: Performed By: #### C BCA, CMP, 2157-6, 62481-0, 77600-3, 87337-4, PINR, 94392-2, 2639-3 #### [facility] ([id number]) [address] [place] [address] 03452 CPK 3034 U/L High 24-170 [facility] Comment on above: Performed By: #### C BCA, CMP, 2157-6, 87108-8, 13453-4, 12032-0, PINR, 65448-8, 2639-3 #### [facility] ([id number]) [address] [place] [address] [place] [address] COMPREHENSIVE METABOLIC PANE [facility] 08-28-2024 Albumin [Mass/Vol] 3.5 g/dL Normal 3.2-5.3 [facility] Comment on above: Performed By: #### C BCA, CMP, 2157-6, 89326-9, 51912-6, 85396-0, PINR, 48074-6, 2639-3 #### [facility] ([id number]) [address] [place] [address] [place] [address] ALP [Catalytic activity/Vol] 86 U/L Normal 39-130 [facility] Comment on above: Performed By: #### C BCA, CMP, 2157-6, 65327-8, 49483-6, 84788-5, PINR, 26338-0, 2639-3 #### [facility] ([id number]) [address] [place] [address] [place] [address] ALT [Catalytic activity/Vol] 32 U/L High 0-31 [facility] Comment on above: Performed By: #### C BCA, CMP, 2157-6, 75911-7, 27971-9, 57908-0, PINR, 74439-8, 2639-3 #### [facility] ([id number]) [address] [place] [address] 57846 Anion gap [Moles/Vol] 10 mmol/L Normal 5-15 [facility] Comment on above: Performed By: #### C BCA, CMP, 7-6, 38110-8, 61850-5, 58232-6, PINR, 59686-3, 2639-3 #### [facility] ([id number]) [address] [place] [address] 70329 AST [Catalytic activity/Vol] 62 U/L High 0-41 [facility] Comment on above: Performed By: #### C BCA, CMP, 2156-6, 98357-9, 63623-5, 31180-2, PINR, 37374-1, 2639-3 #### [facility] ([id number]) [address] [place] [address] 34975 Bilirubin [Mass/Vol] 0.6 mg/dL Normal 0.3-1.2 [facility] Comment on above: Performed By: #### C BCA, CMP, 2156-6, 96416-8, 43851-3, 49225-3, PINR, 29025-7, 2639-3 #### [facility] ([id number]) [address] [place] [address] 44770 Calcium [Mass/Vol] 9.4 mg/dL Normal 8.5-10.5 [facility] Comment on above: Performed By: #### C BCA, CMP, 2156-6, 98669-9, 97948-8, 24141-9, PINR, 16612-4, 2639-3 #### [facility] ([id number]) [address] [place] [address] 49596 Chloride [Moles/Vol] 107 mmol/L Normal 98-109 [facility] Comment on above: Performed By: #### C BCA, CMP, 2156-6, 10807-6, 47119-1, 39824-4, PINR, 20810-7, 2639-3 #### [facility] ([id number]) [address] [place] [address] 30675 CO2 [Moles/Vol] 24 mmol/L Normal 22-32 [facility] Comment on above: Performed By: #### C BCA, CMP, 2156-10, 11379-6, 70651-0, 42131-7, PINR, 54133-9, 2639-3 #### [facility] ([id number]) [address] [place] [address] 00233 Creatinine [Mass/Vol] 1.27 mg/dL High 0.40-1.00 [facility] Comment on above: Result Comment: METH OD TRACEABLE TO IDMS STANDARD Performed By: #### C BCA, CMP, 2156-10, 07610-8, 93643-3, 60408-5, PINR, 17779-3, 2639-3 #### [facility] ([id number]) [address] [place] [address] 63406 GFR/1.73 sq M.predicted among non-blacks MDRD (S/P/Bld) [Vol rate/Area] 50 mL/min/{1.73_m2} Low >59 [facility] Comment on above: Result Comment: Reported eGFR is based on the CKD-EPI 2020 equation that does not use a race coefficient. Performed By: #### C BCA, CMP, 2156-10, 64521-8, 16993-2, 89455-3, PINR, 99848-2, 2639-3 #### [facility] ([id number]) [address] [place] [address] 77909 Glucose [Mass/Vol] 137 mg/dL High 65-99 [facility] Comment on above: Performed By: #### C BCA, CMP, 2156-, 34958-3, 25227-5, 65850-3, PINR, 45984-2, 2639-3 #### [facility] ([id number]) [address] [place] [address] 28182 Potassium [Moles/Vol] 3.8 mmol/L Normal 3.5-5.0 [facility] Comment on above: Performed By: #### C BCA, CMP, 2157-6, 20383-3, 26429-4, 23166-6, PINR, 00564-3, 2639-3 #### [facility] ([id number]) [address] [place] [address] 29566 Protein [Mass/Vol] 8.1 g/dL High 6.0-8.0 [facility] Comment on above: Performed By: #### C BCA, CMP, 2157-6, 94981-2, 09480-4, 06217-4, PINR, 52300-6, 2639-3 #### [facility] ([id number]) [address] [place] [address] 73591 Sodium [Moles/Vol] 141 mmol/L Normal 134-146 [facility] Comment on above: Performed By: #### C BCA, CMP, 2157-6, 41058-6, 43546-4, 46593-2, PINR, 45211-3, 2639-3 #### [facility] ([id number]) [address] [place] [address] 60859 Urea nitrogen [Mass/Vol] 15 mg/dL Normal 5-23 [facility] Comment on above: Performed By: #### C BCA, CMP, 2157-6, 37630-3, 38257-2, 28460-9, PINR, 52248-9, 2639-3 #### [facility] ([id number]) [address] [place] [address]A CHESTon 08-28-[address] CTA CHEST CLINICAL INFORMATION: Status post fall with injury to the left side of the chest.. elevated dimer TECHNIQUE: CT angiography of the chest with intravenous contrast. MIP reformats were generated on a separate workstation under concurrent physician supervision and reviewed to further define anatomy and possible pathology. All CT scans at this facility use dose modulation, iterative reconstruction, and/or weight based dosing when appropriate to reduce radiation dose to as low as reasonably achievable. COMPARISON: No relevant prior studies available. FINDINGS: Visualized thyroid gland is normal. No enlarged axillary, supraclavicular or mediastinal lymph nodes. Thoracic aorta nonaneurysmal. Normal variation 4 vessel aortic arch. No pulmonary embolism given contrast bolus timing limitations. The heart size is normal. Heavy burden of coronary calcifications. No pericardial effusion. The esophagus is unremarkable. Images of the upper abdomen are negative for acute or suspicious pathology in the glqsc-nt-zbsd. The trachea and bronchi are patent. No filling defects are identified. No suspicious pulmonary nodules or masses. Calcified and noncalcified pulmonary nodules are noted the largest distinct pulmonary nodule in the right upper lobe measuring 4 mm. No dedicated follow-up imaging is recommended with no provided history of malignancy or smoking. No aggressive osseous lesions. No acute fractures. Age compatible degenerative changes in the osseous structures. IMPRESSION: * No acute intrathoracic findings. Finalized by Reji Saiin MD on 08/28/2024 12:40 PM Normal [facility] Fibrin D-dimer DDU (PPP) [Ma ss/Vol]on 08-28-2024 D DIMER 5157 ng/mL DDU High <255 [facility] Comment on above: Result Comment: Results >=255ng/mL DDU: Results may be indicative of the presence of VTE. The use of the Wells score and further diagnostic tests should be considered. Elevated D-Dimer levels can also be associated with DIC, neoplasm, , trauma and liver disease. Elevated levels of rheumatoid factor may lead to an overestimation of the D-Dimer level. Performed By: #### C BCA, CMP, 2157-6, 90165-0, 90386-3, 50889-2, PINR, 47517-6, 2639-3 #### [facility] ([id number]) [address] [place] [address], [place] [address] MAGNESIUMon 08-28-2024 Magnesium [Mass/Vol] 1.9 mg/dL Normal 1.8-2.6 [facility] Comment on above: Performed By: #### C BCA, CMP, 2156-10, 60134-7, 24646-1, 18172-0, PINR, 65762-7, 2639-3 #### [facility] ([id number]) [address] [place] [address] 16006 Magnesium [Mass/Vol] 2.0 mg/dL Normal 1.8-2.6 [facility] Comment on above: Performed By: #### C BCA, CMP, 2156-10, 56882-5, 40003-7, 19029-9, PINR, 18486-3, 2639-3 #### [facility] ([id number]) [address] [place] [address] 94402 Myoglobin [Mass/Vol]on 08-28 SERUM MYOGLOBIN 1035.9 ng/mL High 14.3-65.8 [facility] Comment on above: Performed By: #### C BCA, CMP, 2156-10, 56980-0, 61184-5, 31921-6, PINR, 70733-3, 2639-3 #### [facility] ([id number]) [address] [place] [address] 79709 SERUM MYOGLOBIN 4039.8 ng/mL High 14.3-65.8 [facility] Comment on above: Performed By: #### C BCA, CMP, 2156-10, 73454-0, 90919-1, 92200-7, PINR, 40564-3, 2639-3 #### [facility] ([id number]) [address] [place] [address] 19584 POTASSIUMon 08-28-2024 Potassium [Moles/Vol] 3.2 mmol/L Low 3.5-5.0 [facility] Comment on above: Performed By: #### C BCA, CMP, 2156-10, 51709-8, 81678-1, 02684-6, PINR, 09710-1, 2639-3 #### [facility] ([id number]) [address] [place] [address] 14069 PROTIME AND INRon 08-28-2024 INR Coag (PPP) [Relative time] 1.3 {INR} High 0.9-1.2 [facility] Comment on above: Performed By: #### C BCA, CMP, 2157-6, 00001-0, 40115-2, 61177-2, PINR, 11580-0, 2639-3 #### [facility] ([id number]) [address] [place] [address] 96118 PT Coag (PPP) [Time] 15.0 s High 9.8-13.2 [facility] Comment on above: Result Comment: NEW REFERENCE RANGE Performed By: #### C BCA, CMP, 2157-6, 02791-1, 30650-8, 95569-9, PINR, 82151-0, 2639-3 #### [facility] ([id number]) [address] [place] [address], [place] [address] SARS/FLU A+B/RSV by NAAT/Mol ecularon 08-28-2024 SARS/FLU A+B/RSV by NAAT/Molecular FLU A PCR Negative (qualifier value) FLU B PCR Negative (qualifier value) RSV by PCR Negative (qualifier value) SARS CoV 2 Not detected (qualifier value) NOTE The Xpert Xpress SARS-CoV-2/Flu/RSV Plus test is a rapid, multiplexed real-time RT-PCR test intended for the simultaneous qualitative detection and differentiation of SARS-CoV-2, influenza A, influenza B and respiratory syncytial virus (RSV) viral RNA from individuals suspected of respiratory viral infection consistent with COVID-19 by their healthcare provider. This test has not been validated in asymptomatic patients. The Xpert Xpress SARS-CoV-2 test is intended for use by qualified and trained operators who are performing tests using either Veodin or Cuil systems and is limited to laboratories that meet the CLIA requirements to perform high and moderate complexity tests. The Xpert Xpress SARS-CoV-2/Flu/RSV Plus is only for use under the Food and Drug Administration's Emergency Use Authorization. Results are for the simultaneous detection and differentiation of SARS-CoV-2, influenza A, influenza B and RSV nucleic acids in clinical specimens. SARS-CoV-2, influenza A, influenza B and RSV RNA identified by this test are generally detectable in upper respiratory samples during the acute phase of infection. Positive results are indicative of the presence of the identified virus, but do not rule out bacterial infection or co-infection with other pathogens not detected by this test. Clinical correlation with patient history and other diagnostic information is necessary to determine patient infection status. The agent detected may not be the definite cause of disease. Negative results do not preclude SARS-CoV-2, influenza A, influenza B and RSV infection and should not be used as the sole basis for treatment or other patient management decisions. Negative results must be combined with clinical observations, patient history and epidemiological information. An Invalid result may occur with specimen-associated inhibition unable to be resolved with specimen repeat. Fact Sheet for Healthcare Providers: https://www.fda.gov/m edia/282209/download Fact Sheet for Patients: https://www.fda.gov/m edia/262426/download Normal [facility] Comment on above: Performed By: #### C BCA, CMP, 2157-6, 01829-9, 22098-0, 99563-9, PINR, 99591-0, 2639-3 #### [facility] ([id number]) [address] [place] [address], [place] [address] Troponin I.cardiac High sens itivity method [Mass/Vol]on 08-28-2024 3 HOUR TROP I, HIGH SENSITIVITY 42 ng/L High <16 [facility] Comment on above: Result Comment: Elevations of hs-Troponin may be due to causes other than myocardial ischemia. Recommend serial hs-Troponin testing be performed. For the initial evaluation and management of chest pain patients, refer to the algorithms linked below. Emergency Patient: [email or web address] Inpatient: [email or web address] 5&uh=acaea Performed By: #### C BCA, CMP, 2157-6, 36864-9, 83513-5, 34570-8, PINR, 54535-0, 2639-3 #### [facility] ([id number]) [address] [place] [address] 50743 1 HOUR TROP I, HIGH SENSITIVITY 34 ng/L High <16 [facility] Comment on above: Result Comment: Elevations of hs-Troponin may be due to causes other than myocardial ischemia. Recommend serial hs-Troponin testing be performed. For the initial evaluation and management of chest pain patients, refer to the algorithms linked below. Emergency Patient: [email or web address] Inpatient: [email or web address] 5&uh=acaea Performed By: #### C BCA, CMP, 2157-6, 84930-1, 06500-4, 08552-2, PINR, 86484-5, 2639-3 #### [facility] ([id number]) [address] [place] [address] 57441 TROPONIN I, HIGH SENSITIVITY 29 ng/L High <16 [facility] Comment on above: Result Comment: Elevations of hs-Troponin may be due to causes other than myocardial ischemia. Recommend serial hs-Troponin testing be performed. For the initial evaluation and management of chest pain patients, refer to the algorithms linked below. Emergency Patient: [email or web address] Inpatient: [email or web address] 5&uh=acaea Performed By: #### C BCA, CMP, 2157-6, 46496-9, 40989-6, 56869-7, PINR, 49182-7, 2639-3 #### [facility] ([id number]) [address] [place] [address] 98574 XR CHEST 1 VWon 08-28-2024 XR CHEST 1 VW XR CHEST 1 VW Portable chest: HISTORY: Cough and weakness. Single view of the chest was obtained. Cardiac and mediastinal contours are within normal limits. Lungs clear. There is no vascular congestion or effusion. IMPRESSION: Negative exam. Finalized by Gian Gilbert MD on 08/28/2024 10:58 AM Normal [facility] aPTT Coag (PPP) [Time]on aPTT Coag (Bld) [Time] 31 s Normal 26-37 [facility] Comment on above: Result Comment: NEW REFERENCE RANGE Performed By: #### C BCA, CMP, 2157-6, 07447-7, 57069-4, 82351-2, PINR, 06979-7, 2639-3 #### [facility] ([id number]) [address] [place] [address] 94521 Urine Cultureon 08-22-2024 Bacteria identified Cx Nom (U) ORGANISM: Proteus mirabilis (O:PROMIR) [place] Count >100,000 Aerobic ROSE Charge (NMIC56) ---- SUSCEPTIBILITY --- ORGANISM: O:PROMIR ANTIBIOTIC INTERPRETATION ROSE Amikacin S <16 Amoxacillin/K Clavulanate S <8 Ampicillin S <8 Ampicillin/Sulbactam S <4 Aztreonam S <4 Cefazolin S <2 Cefepime S <2 Ceftazidime S <1 Ceftazidime/Avibactam S <4 Ceftolozane/Tazobacta m S <2 Ceftriaxone S <1 Cefuroxime S <4 Ciprofloxacin S <0.25 Ertapenem S <0.5 Gentamicin S <2 Levofloxacin S <0.5 Meropenem S <1 Meropenem/Vaborbactam S <2 Piperacillin/Tazobact am S <8 Tobramycin S <2 Trimethoprim/Sulfamet hoxazole S <0.5 S = SUSCEPTIBLE I = INTERMEDIATE R = RESISTANT BLANK = DATA NOT AVAILABLE, OR DRUG NOT ADVISABLE OR TESTED R* = RESISTANCE DUE TO EXTENDED SPECTRUM BETA-LACTAMASES ESBL = EXTENDED SPECTRUM BETA-LACTAMASE TFG = THYMIDINE-DEPENDENT STRAIN SUSAN = BETA-LACTAMASE POSITIVE IB = INDUCIBLE BETA-LACTAMASE. APPEARS IN PLACE OF 'S' WITH SPECIES KNOWN TO POSSESS INDUCIBLE BETA-LACTAMASES. POTENTIALLY THEY MAY BECOME RESISTANT TO ALL B-LACTAM DRUGS. PERFORMED BY: [place] [address] PATHOLOGIST HIGH MAN CLAIRE PATEL M.D. [facility] Comment on above: Performed By: #### C UU #### [address] MM TOMOSYNTHESIS SCREENING B Ion 06-30-2024 [place] [address] Mammography Report Signed Patient: ANUPAMA VASQUEZ MR#: [id number] : 1970 Acct:[id number] Age/Sex: 54 / F ADM Date: 06/30/24 Loc: MAMMO Attending Dr: Fred Gracia NP Ordering Physician: Fred Gracia NP Results: Date of Service: 06/30/24 Follow Up: Procedure(s): MM tomosynthesis screening BI Accession Number(s): [id number] cc: Fred Gracia NP Patient Name: ANUPAMA VASQUEZ MR#: [id number] : 1970 Exam Date: 06/30/2024 Ordering Doctor: [...] throat/lung cancer at age 56. LOCATION: The [facility] BREAST COMPOSITION: There are scattered areas [...] Signed By: 06/30/24 1133 DD/ 1132 TD/TT: Coning Machine Operator: [facility] Radiology, Radiologist, - 06/30/2024 [place] [address] Mammography Report Signed Patient: ANUPAMA VASQUEZ MR#: [id number] : 1970 Acct:[id number] Age/Sex: 54 / F ADM Date: 06/30/24 Loc: MAMMO Attending Dr: Fred Gracia NP Ordering Physician: Fred Gracia NP Results: Date of Service: 06/30/24 Follow Up: Procedure(s): MM tomosynthesis screening BI Accession Number(s): [id number] cc: Fred Gracia NP Patient Name: ANUPAMA VASQUEZ MR#: [id number] : 1970 Exam Date: 06/30/2024 Ordering Doctor: [...] throat/lung cancer at age 56. 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 Patient was prepped and draped in the usual sterile fashion. [employer] XR Shoulder - left 2 Viewson 02-25-2024 Imaging Result: Two views, AP and Lateral, in the office taken today saved to the permanent record shows post surgical change with acromioplasty/partial distal clavulectomy with appropriate coplaning. No acute fracture, dislocation, tumor or infection seen. [employer] Radiology Study observation (narrative) [facility] Main OR Intraoperative Recor don 02-11-2024 Main OR Intraoperative Record Main OR Intraoperative Record IntraOp Document Type FT Summary Primary Physician: Eliazar Brooks DO Finalized Date/Time: 02/11/24 14:09:06 Pt. Name: ANUPAMA VASQUEZ /Sex: 1970 Female Med Rec #: [id number] Physician: Eliazar Brooks DO Financial #: [id number] Pt. Type: A Room/Bed: Admit/Disch: 02/10/24 11:39:41 [...] 2 Entry 3 Case Attendee Cynthia BROWN, METAL MODEL MAKER, [place] Eliazar Brooks DO VP BUSINESS DEVELOPMENT, Marlyn Campuzano Role Performed METAL MODEL MAKER Surgeon - Primary Scrub - Primary Time In 02/10/24 14:21:00 02/10/24 14:21:00 02/10/24 14:21:00 Time Out 02/10/24 15:35:00 02/10/24 15:35:00 02/10/24 15:35:00 Procedure SHOULDER ARTHROSCOPY W/ SHOULDER ARTHROSCOPY W/ SHOULDER ARTHROSCOPY W/ POSSIBLE REPAIR(Left) POSSIBLE REPAIR(Left) POSSIBLE REPAIR(Left) Comments DR VEGA SUPERVISING Last Modified By: Adams Pak Terry T Sweene, Terry T 02/10/24 15:49:04 02/10/24 15:49:04 02/10/24 15:49:04 Entry 4 Entry 5 Case Attendee Adams Pak Laura C Role Performed Tree Loader Meat - Primary Scrub - Primary Time In 02/10/24 14:21:00 02/10/24 14:21:00 Time Out 02/10/24 15:35:00 02/10/24 15:35:00 Procedure SHOULDER ARTHROSCOPY W/ SHOULDER ARTHROSCOPY W/ POSSIBLE REPAIR(Left) POSSIBLE REPAIR(Left) Comments Last Modified By: Adams Pak Terry T 02/10/24 15:49:04 02/10/24 15:49:04 General Comments: LATESHA HENRIQUEZ - MARCELLE STUDENT HERE FOR CASE. Raf PAK RN. Perioperative Protocols FT Pre-Care Text: [...] Antibiotic Yes Given Time Out Cynthia DNP, METAL MODEL MAKER, Bhatt Time Out Complete 02/10/24 14:35:00 Participants N., Eliazar Brooks DO, Marlyn Kate CST, Adams Pak, Naomi Garcia Outcomes Met? Yes [...] and tissue Entry 1 Skin Integrity Intact, [place], Warm, & Skin Abnormality No Dry Outcomes Met? Yes Last Modified By: Adams Pak 02/10/24 15:02:50 Post-Care Text: The patient is free from signs and symptoms of injury caused by extraneous objects Patient Positioning FT Pre-Care Text: Identifies physical alterations that require additional precautions for procedure-specific positioning, verifies presence of prosthetics (more content not included)... Normal [facility] Operative Reporton Operative Report Operative Report SURGERY DATE: 02/10/2024 QM CONSULTANT: Marlyn Kate C.F.A. PREOPERATIVE DIAGNOSIS: Left shoulder [...] one Arthrex 4.75 SwiveLock HISTORY AND INDICATIONS: Anupama is a 53-year-old female with progressive left shoulder pain that has been recalcitrant to conservative injection care. Please see office notes, History and Physical, as well as MRI. The pros, cons, risks, benefits, and reasonable expectations of above procedure were discussed, consent form signed and charted, sites markedly preoperatively, all questions answered preoperatively, antibiotics provided weight based per protocol. PROCEDURE: Anupama was taken to the Operating Room and [...] a lateral portal incision utilizing a 90-degree [place] wand as well as 5.0 bone cutter, [...] Satisfactory Eliazar Brooks D.O. ca Dictated: 02/10/2024 [id number] Transcribed: 02/10/2024 [facility] Comment on above: Result Comment: Elec tronically Signed By: Eliazar Brooks DO\.br\Date and Time Signed: 02/11/24 07:18 EDT Discharge Instructionson Discharge Instructions Discharge Instructions ANUPAMA VASQUEZ :1970 Visit Date:02/10/2024 Inpatient Discharge Instructions [...] scheduled appointment Call for any problems. Where: [address] [place] [address]- [facility] (1) Medications What How Much When Why [...] needed for shoulder surgical pain. Pickup at [facility] Unchanged ergocalciferol (Vitamin D) 1,200 International [...] bedtime) as needed for Sleep Pharmacy Information [facility]: [address] [place], [place] [phone] Test Results No qualifying data available. Allergies No Known Allergies Problems Ongoing - Any problem that you are currently receiving treatment for. Menopause Mini stroke MS - Multiple sclerosis Smoker Education Materials [place] [place] [facility] AFTER YOUR SHOULDER ARTHROSCOPY [...] have any (more content not included)... Normal [facility] Comment on above: Result Comment: Elec tronically Signed By: Aime ROSA, Brigida Lantigua\.br\Date and Time Signed: 02/10/24 15:46 EDT Main OR PACU I Recordon 01-19 Main OR PACU I Record Main OR PACU I Rec ord PACU Phase I Document Type FT Summary Primary Physician: Eliazar Brooks DO Finalized Date/Time: 02/10/24 16:23:54 Pt. Name: ANUPAMA VASQUEZ/Sex: 1970 Female Med Rec #: [id number] Physician: Eliazar Brooks DO Financial #: [id number] Pt. Type: A Room/Bed: 01/18 Admit/Disch: 02/10/24 [...] By: Meera Rose RN 02/10/24 16:23 Normal [facility] Main OR PACU II Recordon Main OR PACU II Record Main OR PACU II Record PACU Phase II Document Type FT Summary Primary Physician: Eliazar Brooks DO Finalized Date/Time: 02/10/24 18:07:34 Pt. Name: ANUPAMA VASQUEZ/Sex: 1970 Female Med Rec #: [id number] Physician: Eliazar Brooks DO Financial #: [id number] Pt. Type: A Room/Bed: Admit/Disch: 02/10/24 11:39:41 [...] Signed By: Sherron Deleon RN 02/10/24 18:07 [facility] Main OR Preoperative Recordo n 02-10-2024 Main OR Preoperative Record Main OR Preoperative Record PreOp Document Type FT Summary Primary Physician: Eliazar Brooks DO Finalized Date/Time: 02/10/24 15:51:36 Pt. Name: ANUPAMA VASQUEZ /Sex: 1970 Female Med Rec #: [id number] Physician: Eliazar Brooks DO Financial #: [id number] Pt. Type: A Room/Bed: Admit/Disch: 02/10/24 11:39:41 [...] 02/10/24 14:59 Adams Pak 02/10/24 15:51 Normal [facility] Proceduralon 02-10-2024 Procedural Procedural Patient: ANUPAMA VASQUEZ Age: 53 years Sex: Female : 1970 Associated Diagnoses: None Author: Cynthia BROWN CRNA, Queen N. Procedure Nerve Block Block Type: Interscalene block. [...] Using maximal sterile barrier technique per current [facility] guidelines including hand hygeine, Guidance (Ultrasound [...] completed by Queen Cynthia CRNA under Dr Vega's supervision.. Normal [facility] Inpatient Patient Summaryon 02-06-2024 Inpatient Patient Summary Inpatient Patient Summary [address] [address] [facility] Clinical Discharge Instructions PERSON INFORMATION Name: ANUPAMA VASQUEZ [facility]#:[id number] PHYSICIANS Admitting Physician: Eliazar Brooks DO Attending Physician: Eliazar Brooks DO PCP: ROCK CESPEDES, FRANCES L Discharge Diagnosis: Impingement of left shoulder Comment: PATIENT EDUCATION INFORMATION Instructions: Cecilia - After Your Shoulder Arthroscopy (Revised 06/17/14) (CUSTOM) Medication Leaflets: Follow up: With: Address: When: Eliazar Brooks [address] [place] [address] Omnidrone (1) Comments: Keep scheduled appointment Type Location Start [facility] Surgery [facility] Surgical Services 02/10/2024 2:30 PM [...] Mouth 2 times a day. Comment: Normal [facility] Outpatient Surgery Discharge Instructionon 02-06-2024 Outpatient Surgery Discharge Instruction Outpatient Surgery Discharge Instruction [place] [id number] Patient Discharge Instructions PERSON INFORMATION Name: PEDRORADHAANUPAMA F Date of : 1970 Current Date: 02/06/2024 18:01:15 PHYSICIANS Admitting Physician: Eliazar Brooks DO Discharge Diagnosis: Impingement of left shoulder ANUPAMA VASQUEZ has been given the following list [...] Follow up: With: Address: When: Eliazar Brooks [address] [place] [id number] Business (1) Comments: Keep scheduled appointment Type Location Start [facility] Surgery [facility] Surgical Services 02/10/2024 2:30 PM [...] to serve you. Thank you for choosing [facility] HERE ARE THE MEDICATION CHANGES THAT OCCURRED [...] times a day. PATIENT EDUCATION INFORMATION Instructions: [place], [place] [facility] AFTER YOUR SHOULDER ARTHROSCOPY [...] medication as (more content not included)... Normal [facility] XR Chest 2 Viewson 4 XR Chest 2 Views Exam Date/Time: 02/05/2024 10:22 EDT Reason for Exam: P.A.T. Report IMPRESSION: NO RADIOGRAPHIC EVIDENCE OF ACTIVE DISEASE IN THE CHEST. CLINICAL INFORMATION: P.A.T. COMPARISON: None available. FINDINGS: Two views of the chest were obtained. Heart and mediastinum appear normal. The lungs appear clear. Visualized bony thorax and remainder of the chest appears unremarkable. Ordering Provider: Mynor Vega FINAL REPORT Dictated: 02/06/2024 10:53 am Charles Nava MD Signed (Electronic Signature): 02/06/2024 10:53 am Signed by: Charles Nava MD Transcribed by: JANETH Technologist: SABRA Technical Comments Radiation Dose: Ka,r in mGy = . DAP = . Normal [facility] BMPon 02-05-2024 Anion gap [Moles/Vol] 11 mmol/L Normal 6-16 [facility] Comment on above: Performed By: #### 2 [id number] #### [facility] Laboratory [address] [place] [address] Calcium [Mass/Vol] 9.4 mg/dL Normal 8.9-11.1 [facility] Comment on above: Performed By: #### 2 [id number] #### [facility] [address] [place] [address] Chloride [Moles/Vol] 104 mmol/L Normal 101-111 [facility] Comment on above: Performed By: #### 2 136791 #### [facility] [address] [place] [address] CO2 [Moles/Vol] 31 mmol/L Normal 21-31 [facility] Comment on above: Performed By: #### 2 [id number] #### [facility] [address] [place] [address] Creatinine [Mass/Vol] 0.9 mg/dL Normal 0.5-1.3 [facility] Comment on above: Performed By: #### 2 025207 #### [facility] [address] [place] [address] Glucose [Mass/Vol] 93 mg/dL Normal 55-199 [facility] Comment on above: Performed By: #### 2 197827 #### [facility] [address] [place] [address] Potassium [Moles/Vol] 4.1 mmol/L Normal 3.5-5.3 [facility] Comment on above: Performed By: #### 2 217461 #### [facility] [address] [place] [address] Sodium [Moles/Vol] 142 mmol/L Normal 135-145 [facility] Comment on above: Performed By: #### 2 187199 #### [facility] [address] [place] [address] Urea nitrogen [Mass/Vol] 11 mg/dL Normal 5-21 [facility] Comment on above: Performed By: #### 2 159190 #### [facility] [address] [place] [address] Urea nitrogen/Creatinine [Mass ratio] 12 No Units Normal 10-20 [facility] Comment on above: Performed By: #### 2 217565 #### [facility] [address] [place] [address] CBC w/ Auto Diffon 4 Basophils/100 WBC (Bld) 0.6 % Normal 0.0-2.0 [facility] Comment on above: Performed By: #### 2 646492 #### [facility] [address] [place] [address] Basophils/Leukocytes Auto (Bld) [Pure # fraction] 0.0 E9/L Normal 0.0-0.2 [facility] Comment on above: Performed By: #### 2 192526 #### [facility] [address] [place] [address] Eosinophils (Bld) [#/Vol] 0.1 E9/L Normal 0.0-0.5 [facility] Comment on above: Performed By: #### 2 623264 #### [facility] [address] [place] [address] Eosinophils/100 WBC (Bld) 1.2 % Normal 0.0-8.0 [facility] Comment on above: Performed By: #### 2 554584 #### [facility] [address] [place] [address] Erythrocyte distribution width (RBC) [Ratio] 17.5 % High 10.9-14.2 [facility] Comment on above: Performed By: #### 2 069094 #### [facility] [address] [place] [address] Hematocrit (Bld) [Volume fraction] 37.9 % Normal 34.0-46.0 [facility] Comment on above: Performed By: #### 2 983244 #### [facility] [address] [place] [address] Hemoglobin (Bld) [Mass/Vol] 12.6 g/dL Normal 12.0-16.0 [facility] Comment on above: Performed By: #### 2 663445 #### [facility] [address] [place] [address] Lymphocytes (Bld) [#/Vol] 0.8 E9/L Low 1.0-4.0 [facility] Comment on above: Performed By: #### 2 002867 #### [facility] [address] [place] [address] Lymphocytes/100 WBC (Bld) 11.1 % Low 14.0-50.0 [facility] Comment on above: Performed By: #### 2 607389 #### [facility] [address] [place] [address] MCH (RBC) [Entitic mass] 27.8 pg Normal 27.0-34.0 [facility] Comment on above: Performed By: #### 2 468522 #### [facility] [address] [place] [address] MCHC (RBC) [Mass/Vol] 33.2 g/dL Normal 31.4-36.0 [facility] Comment on above: Performed By: #### 2 894175 #### [facility] [address] [place] [address] MCV (RBC) [Entitic vol] 83.9 fL Normal 80.0-100.0 [facility] Comment on above: Performed By: #### 2 576915 #### [facility] [address] [place] [address] Monocytes (Bld) [#/Vol] 0.8 E9/L Normal 0.2-1.0 [facility] Comment on above: Performed By: #### 2 332632 #### [facility] [address] [place] [address] Neutrophils (Bld) [#/Vol] 5.4 E9/L Normal 2.0-7.5 [facility] Comment on above: Performed By: #### 2 011263 #### [facility] [address] [place] [address] Neutrophils/100 WBC (Bld) 76.4 % High 36.0-75.0 [facility] Comment on above: Performed By: #### 2 020388 #### [facility] [address] [place] [address] Platelet 195.0 E9/L Normal 150.0-500. 0 [facility] Comment on above: Performed By: #### 2 950213 #### [facility] [address] [place] [address] Platelet mean volume (Bld) [Entitic vol] 10.4 fL Normal 6.4-10.8 [facility] Comment on above: Performed By: #### 2 081095 #### [facility] [address] [place] [address] RBC (Bld) [#/Vol] 4.5 E12/L Normal 4.3-5.9 [facility] Comment on above: Performed By: #### 2 232599 #### [facility] [address] [place] [address] WBC corrected for nucl RBC Auto (Bld) [#/Vol] 7.1 E9/L Normal 4.0-11.0 [facility] Comment on above: Performed By: #### 2 978998 #### [facility] [address] [place] [address] eGFRon 02-05-2024 eGFR 75 mL/min/1.73 m2 Normal >=59 [facility] Comment on above: Order Comment: Order added by Discern Expert. Performed By: #### 1 [id number] ####[facility] [address] [place] [address] [facility] UA (CLEAN/CATCH) [facility] IF INDICATEon 01-23-2024 BILIRUBIN URINE Negative NEGATIVE [facility] BLOOD URINE Negative NEGATIVE [facility] Clarity (U) CLEAR CLEAR [facility] Color (U) LT. YELLOW YELLOW [facility] GLUCOSE URINE UA Negative NEGATIVE mg/dL [facility] Ketones Ql (U) Negative NEGATIVE mg/dL [facility] Leukocyte esterase Test strip Ql (U) Negative NEGATIVE [facility] NITRITE URINE Negative NEGATIVE [facility] pH (U) 6.5 [pH] 5.0 - 9.0 [facility] PROTEIN URINE Negative NEG/TRACE mg/dL [facility] SPECIFIC GRAVITY URINE 1.010 1.005 - 1.025 [facility] URINE MICROSCOPIC INDICATED NO [facility] UROBILINOGEN URINE 0.2 EU/dL 0.2 - 1.0 EU/dL [facility] So 12-19-2023 RUBINAN Telephone (MARK) ANUPAMA VASQUEZ ([id number]) 1970 F Date Time Provider Department 12/19/23 NURSE [facility]GLE [facility] During your visit today, [...] [Z00.6] 11/27/2012 Encounter Status:Closed by TEAGAN SHE MONIQUE on 12/19/23 Normal [facility] MR SHOULDER LEFT WO IV [...] 7-8 years ago So 08-21-2023 CNPN Telephone (NEMLoanLogicsN) ANUPAMA VASQUEZ ([id number]) 1970 F Date Time Provider Department 08/21/23 JESSICA CLARKE During your visit today, we recorded the following information about you: Renuka Ellison 08/21/2023 4:19 PM Signed [place] Call Name of caller : Anupama Vasquez Relationship to patient: Self Return call phone number : [phone] Reason for call : Other : Brief [...] of spine [M48.02] Order(s):CONSULT TO SPINE SURGERY [[id number]] Order #: [id number]: 1 FUTURE Prescriptions as of 08/22/2023 - [...] Encounter Status:Closed by ELIZABETH VICTORIA on 08/22/23 [facility] So 07-15-2023 [facility] Telephone ([facility]) ANUPAMA VASQUEZ ([id number]) 1970 F Date Time Provider Department 07/15/23 JESSICA CLARKE [facility] During your visit today, we recorded the [...] since c-spine MRI was completed locally outside [facility] in April. Orders already placed Elizabeth Victoria, RN 07/16/2023 2:21 PM Signed Called patient, no answer. Message left to return call to office when able. MOE Spencer Megan A, RN 07/17/2023 9:04 AM Signed Called patient, no answer. Message left indicating [employer] Tech message would be sent with reason for [...] sclerosis (HCC) [G35] Order(s):MRI BRAIN WO/W IVCON [[id number]] Order #: [id number] FUTURE iv contrast (will be provided with [...] Encounter Status:Closed by ELIZABETH VICTORIA on 07/17/23 [facility] CNOVon 07-10-2023 CNOV Office Visit (PAINLN ) ANUPAMA VASQUEZ ([id number]) 1970 F Date Time Provider Department 07/10/23 [...] the evaluation and management of the patient's Anupama Vasquez problems, and my final recommendations will be communicated to the requesting health care provider by way of the shared medical record for internal providers or letter via the [employer] for external providers. SUBJECTIVE: Anupama Vasquez a 53 year old presents to [facility] Pain Management Department, accompanied by self only, [...] (MS) PT several years ago (+) relief [facility] Alcohol Abuse - No Drug Abuse [...] No history of dysuria, frequency or incontinence [place]: Negative for abnormal vaginal bleeding, abnormal vaginal discharge MUSCULOSKELETAL: Negative for joint pain or swelling, back pain or musc (more content not included)... Normal [facility] CBC W Auto Differential pane l (Bld)on 05-22-2023 Basophils (Bld) [#/Vol] 0.05 10*3/uL Normal <0.11 [facility] Comment on above: Order Comment: Speci men Type: BLOOD SPECIMENOrdering Facility: [facility] Address: [address] [place] [address] Performed By: #### 5 7021-8 ####[facility] [id number] [place] [address] [place] Basophils/100 WBC (Bld) 0.5 % Normal [facility] Comment on above: Order Comment: Speci men Type: BLOOD SPECIMENOrdering Facility: [facility] Address: [address] [place] [address] Performed By: #### 5 7021-8 ####[facility] [id number] [place] [address] [place] Differential cell count method Nom (Bld) Auto Normal [facility] Comment on above: Order Comment: Speci men Type: BLOOD SPECIMENOrdering Facility: [facility] Address: [address] [place] [address] Performed By: #### 5 7021-8 ####[facility] [id number] [place] [address] [place] Eosinophils (Bld) [#/Vol] 0.19 10*3/uL Normal <0.46 [facility] Comment on above: Order Comment: Speci men Type: BLOOD SPECIMENOrdering Facility: [facility] Address: [address] [place] [address] Performed By: #### 5 7021-8 ####[facility] [id number] [place] [address] [place] Eosinophils/100 WBC (Bld) 2.1 % Normal [facility] Comment on above: Order Comment: Speci men Type: BLOOD SPECIMENOrdering Facility: [facility] Address: [address] [place] [address] Performed By: #### 5 7021-8 ####[facility] [id number] [place] [address] [place] Erythrocyte distribution width (RBC) [Ratio] 15.5 % High 11.5-15.0 [facility] Comment on above: Order Comment: Speci men Type: BLOOD SPECIMENOrdering Facility: [facility] Address: [address] [place] [address] Performed By: #### 5 7021-8 ####[facility] [id number] [place] [address] [place] Hematocrit (Bld) [Volume fraction] 42.1 % Normal 36.0-46.0 [facility] Comment on above: Order Comment: Speci men Type: BLOOD SPECIMENOrdering Facility: [facility] Address: [address] [place] [address] Performed By: #### 5 7021-8 ####[facility] LABIA [id number] [place] [address] [place] Hemoglobin (Bld) [Mass/Vol] 12.9 g/dL Normal 11.5-15.5 [facility] Comment on above: Order Comment: Speci men Type: BLOOD SPECIMENOrdering Facility: [facility] Address: [address] [place] [address] Performed By: #### 5 7021-8 ####[facility]IA [id number] [place] [address] [place] Immature granulocytes (Bld) [#/Vol] 0.04 10*3/uL Normal <0.10 [facility] Comment on above: Order Comment: Speci men Type: BLOOD SPECIMENOrdering Facility: [facility] Address: [address] [place] [address] Performed By: #### 5 7021-8 ####[facility] [id number] [place] [address] [place] Immature granulocytes/100 WBC (Bld) 0.4 % Normal [facility] Comment on above: Order Comment: Speci men Type: BLOOD SPECIMENOrdering Facility: [facility] Address: [address] [place] [address] Performed By: #### 5 7021-8 ####[facility] [id number] [place] [address] [place] Lymphocytes (Bld) [#/Vol] 0.82 10*3/uL Low 1.00-4.00 [facility] Comment on above: Order Comment: Speci men Type: BLOOD SPECIMENOrdering Facility: [facility] Address: [address] [place] [address] Performed By: #### 5 7021-8 ####[facility] [id number] [place] [address] [place] Lymphocytes/100 WBC (Bld) 9.0 % Normal [facility] Comment on above: Order Comment: Speci men Type: BLOOD SPECIMENOrdering Facility: [facility] Address: [address] [place] [address] Performed By: #### 5 7021-8 ####[facility]CL[facility] [id number] [place] [address] [place] MCH (RBC) [Entitic mass] 26.9 pg Normal 26.0-34.0 [facility] Comment on above: Order Comment: Speci men Type: BLOOD SPECIMENOrdering Facility: [facility] Address: [address] [place] [address] Performed By: #### 5 7021-8 ####[facility]CL[facility] [id number] [place] [address] [place] MCHC (RBC) [Mass/Vol] 30.6 g/dL Normal 30.5-36.0 [facility] Comment on above: Order Comment: Speci men Type: BLOOD SPECIMENOrdering Facility: [facility] Address: [address] [place] [address] Performed By: #### 5 7021-8 ####[facility]CL[facility] [id number] [place] [address] [place] MCV (RBC) [Entitic vol] 87.9 fL Normal 80.0-100.0 [facility] Comment on above: Order Comment: Speci men Type: BLOOD SPECIMENOrdering Facility: [facility] Address: [address] [place] [address] Performed By: #### 5 7021-8 ####[facility]CL[facility] [id number] [place] [address] [place] Monocytes (Bld) [#/Vol] 0.93 10*3/uL High <0.87 [facility] Comment on above: Order Comment: Speci men Type: BLOOD SPECIMENOrdering Facility: [facility] Address: [address] [place] [address] Performed By: #### 5 7021-8 ####[facility]CL[facility] [id number] [place] [address] [place] Monocytes/100 WBC (Bld) 10.2 % Normal [facility] Comment on above: Order Comment: Speci men Type: BLOOD SPECIMENOrdering Facility: [facility] Address: [address] [place] [address] Performed By: #### 5 7021-8 ####[facility]CL[facility] [id number] [place] [address] [place] Neutrophils (Bld) [#/Vol] 7.07 10*3/uL Normal 1.45-7.50 [facility] Comment on above: Order Comment: Speci men Type: BLOOD SPECIMENOrdering Facility: [facility] Address: [address] [place] [address] Performed By: #### 5 7021-8 ####[facility]CL[facility] [id number] [place] [address] [place] Neutrophils/100 WBC (Bld) 77.8 % Normal [facility] Comment on above: Order Comment: Speci men Type: BLOOD SPECIMENOrdering Facility: [facility] Address: [address] [place] [address] Performed By: #### 5 7021-8 ####[facility]CL[facility] [id number] [place] [address] [place] Nucleated RBC (Bld) [#/Vol] 10*3/uL Normal <0.01 [facility] Comment on above: Order Comment: Speci men Type: BLOOD SPECIMENOrdering Facility: [facility] Address: [address] [place] [address] Performed By: #### 5 7021-8 ####[facility]CL[facility] [id number] [place] [address] [place] Nucleated RBC/100 WBC (Bld) [Ratio] 0.0 /100 WBC Normal [facility] Comment on above: Order Comment: Speci men Type: BLOOD SPECIMENOrdering Facility: [facility] Address: [address] [place] [address] Performed By: #### 5 7021-8 ####[facility] LABIA [id number] [place] [address] [place] Platelet mean volume (Bld) [Entitic vol] 12.4 fL Normal 9.0-12.7 [facility] Comment on above: Order Comment: Speci men Type: BLOOD SPECIMENOrdering Facility: [facility] Address: [address] [place] [address] Performed By: #### 5 7021-8 ####[facility] LABIA [id number] [place] [address] [place] Platelets (Bld) [#/Vol] 208 10*3/uL Normal 150-400 [facility] Comment on above: Order Comment: Speci men Type: BLOOD SPECIMENOrdering Facility: [facility] Address: [address] [place] [address] Performed By: #### 5 7021-8 ####[facility]CL[facility] [id number] [place] [address] [place] RBC (Bld) [#/Vol] 4.79 10*6/uL Normal 3.90-5.20 [facility] Comment on above: Order Comment: Speci men Type: BLOOD SPECIMENOrdering Facility: [facility] Address: [address] [place] [address] Performed By: #### 5 7021-8 ####[facility]CLIA [id number] [place] [address] [place] WBC (Bld) [#/Vol] 9.10 10*3/uL Normal 3.70-11.00 [facility] Comment on above: Order Comment: Speci men Type: BLOOD SPECIMENOrdering Facility: [facility] Address: [address] [place] [address] Performed By: #### 5 7021-8 ####[facility]CLIA [id number] [place] [address] [place] CD19 ABSOLUTE COUNTon 2023 CD3-CD19+ cells (Bld) [#/Vol] 219 cells/uL Normal 75-660 [facility] Comment on above: Order Comment: Speci men Type: BLOOD SPECIMENOrdering Facility: [facility] Address: [address] [place] [address] Performed By: #### A BS19 ####[facility]CLIA [id number] [place] [address] [place] CD3-CD19+ cells/100 cells (Bld) 23 % High 5-22 [facility] Comment on above: Order Comment: Speci men Type: BLOOD SPECIMENOrdering Facility: [facility] Address: [address] [place] [address] Performed By: #### A BS19 ####[facility]CLIA [id number] [place] [address] [place] Lymphocytes/100 WBC FC (Bld) Normal [facility] Comment on above: Order Comment: Speci men Type: BLOOD SPECIMENOrdering Facility: [facility] Address: [address] [place] [address] Performed By: #### A BS19 ####[facility] LABALIYA [id number] [facility] [id number] [id number] [employer] [facility] CNOVon 05-22-2023 CNOV Office Visit (NTLORA ) ANUPAMA VASQUEZ ([id number]) 1970 F Date Time Provider Department 05/22/23 [...] her tubes tied. Referring Provider: SARTHAK ESCOBAR [[id number]] Allergies As of Date: 05/22/2023 (No Known Allergies) Date Reviewed: 10/11/2022 Reviewed by: Maryam Cabrera, RN - Fully Assessed Primary Visit Diagnosis:Multiple sclerosis (HCC) [G35] Other Visit Diagnosis:Multiple sclerosis, relapsing-remitting (HCC) [G35] Order(s):TREATMENT PARAMETER-NOT NEEDED [[id number]] Order #: [id number]: 1 BCN CD20 NURSING COMMUNICATION [[id number]] Order #: [id number]: 1 BCN NURSING COMMUNICATION [1058203] Order #: [id number]: 1 CD19 ABSOLUTE COUNT [SQABS19] Order #: [id number] FUTURE [] methylPREDNISolone sod succinate(PF) 100 mg injection (SOLU-Medrol)Disp: Rfl: [] acetaminophen 1,000 mg tab(s) (TYLENOL)Disp: Rfl: [] diphenhydrAMINE 50 mg (BENADRYL)Disp: Rfl: [] ocrelizumab 600 mg in NaCl 0.9% 500 mL (OCREVUS)Disp: Rfl: CBC + DIFF [SQCBCDIF] Order #: [id number]. #:[id number] COMP METABOLIC PANEL [SQCMP] Order #: [id number]. #:[id number] IGG [SQIGG] Order #: [id number]. #:[id number] IGM [SQIGM] Order #: [id number]. #:[id number] CD19 ABSOLUTE COUNT [SQABS19] Order #: [id number]. #:[id number] Prescriptions as of 05/23/2023 - lisinopril (ZESTRIL) [...] Status:Closed by SHE BRAND on 05/22/23 Normal [facility] metabolic 2000 panelon 05-22-2023 Albumin [Mass/Vol] 4.0 g/dL Normal 3.9-4.9 [facility] Comment on above: Order Comment: Speci men Type: BLOOD SPECIMENOrdering Facility: [facility] Address: [address] [place] [address] Performed By: #### 2 4323-8 ####[facility]CLIA [id number] [place] [address] [place] ALP [Catalytic activity/Vol] 90 U/L Normal 34-123 [facility] Comment on above: Order Comment: Speci men Type: BLOOD SPECIMENOrdering Facility: [facility] Address: [address] [place] [address] Performed By: #### 2 4323-8 ####[facility]CLIA [id number] [place] [address] [place] ALT [Catalytic activity/Vol] 23 U/L Normal 7-38 [facility] Comment on above: Order Comment: Speci men Type: BLOOD SPECIMENOrdering Facility: [facility] Address: [address] [place] [address] Performed By: #### 2 4323-8 ####[facility]CLIA [id number] [place] [address] [place] Anion gap [Moles/Vol] 13 mmol/L Normal 9-18 [facility] Comment on above: Order Comment: Speci men Type: BLOOD SPECIMENOrdering Facility: [facility] Address: [address] [place] [address] Performed By: #### 2 4323-8 ####[facility]CLIA [id number] [place] [address] [place] AST [Catalytic activity/Vol] 25 U/L Normal 13-35 [facility] Comment on above: Order Comment: Speci men Type: BLOOD SPECIMENOrdering Facility: [facility] Address: [address] [place] [address] Performed By: #### 2 4323-8 ####[facility]CLIA [id number] [place] [address] [place] Bilirubin [Mass/Vol] 0.3 mg/dL Normal 0.2-1.3 [facility] Comment on above: Order Comment: Speci men Type: BLOOD SPECIMENOrdering Facility: [facility] Address: [address] [place] [address] Performed By: #### 2 4323-8 ####[facility]CLIA [id number] [place] [address] [place] Calcium [Mass/Vol] 9.4 mg/dL Normal 8.5-10.2 [facility] Comment on above: Order Comment: Speci men Type: BLOOD SPECIMENOrdering Facility: [facility] Address: [address] [place] [address] Performed By: #### 2 4323-8 ####[facility]CLIA [id number] [place] [address] [place] Chloride [Moles/Vol] 103 mmol/L Normal 97-105 [facility] Comment on above: Order Comment: Speci men Type: BLOOD SPECIMENOrdering Facility: [facility] Address: [address] [place] [address] Performed By: #### 2 4323-8 ####[facility] LABCLIA [id number] [place] [address] [place] CO2 [Moles/Vol] 27 mmol/L Normal 22-30 [facility] Comment on above: Order Comment: Speci men Type: BLOOD SPECIMENOrdering Facility: [facility] Address: [address] [place] [address] Performed By: #### 2 4323-8 ####[facility] LABCLIA [id number] [place] [address] [place] Creatinine [Mass/Vol] 1.04 mg/dL High 0.58-0.96 [facility] Comment on above: Order Comment: Rebeca ruelas Type: BLOOD SPECIMENOrdering Facility: [facility] Address: [address] [place] [address] Performed By: #### 2 4323-8 ####[facility] LABCLIA [id number] [place] [address] [place] Creatinine and Glomerular filtration rate.predicted panel (S/P/Bld) 64 mL/min/1.73m??? Normal >=60 [facility] Comment on above: Order Comment: Rebeca ruelas Type: BLOOD SPECIMENOrdering Facility: [facility] Address: [address] [place] [address] Result Comment: Karyn mated Glomerular Filtration Rate [...] actual GFR. Performed By: #### 2 4323-8 ####[facility] LABCLIA [id number] [place] [address] [place] Glucose [Mass/Vol] 88 mg/dL Normal 74-99 [facility] Comment on above: Order Comment: Rebeca ruelas Type: BLOOD SPECIMENOrdering Facility: [facility] Address: [address] [place] [address] Result Comment: The [place] Diabetes Association (ADA) provides guidance for cutoff [...] Standards of Medical Care in Diabetes 2016, [place] [employer]. Diabetes Care. 2016.39(Suppl 1). Performed By: #### 2 4323-8 ####[facility] LABCLIA [id number] [place] [address] [place] Potassium [Moles/Vol] 3.7 mmol/L Normal 3.7-5.1 [facility] Comment on above: Order Comment: Speci men Type: BLOOD SPECIMENOrdering Facility: [facility] Address: [address] [place] [address] Performed By: #### 2 4323-8 ####[facility] LABCLIA [id number] [place] [address] [place] Protein [Mass/Vol] 7.1 g/dL Normal 6.3-8.0 [facility] Comment on above: Order Comment: Speci men Type: BLOOD SPECIMENOrdering Facility: [facility] Address: [address] [place] [address] Performed By: #### 2 4323-8 ####[facility] LABIA [id number] [place] [address] [place] Sodium [Moles/Vol] 143 mmol/L Normal 136-144 [facility] Comment on above: Order Comment: Speci men Type: BLOOD SPECIMENOrdering Facility: [facility] Address: [address] [place] [address] Performed By: #### 2 4323-8 ####[facility] LABCLIA [id number] [place] [address] [place] Urea nitrogen [Mass/Vol] 17 mg/dL Normal 7-21 [facility] Comment on above: Order Comment: Speci men Type: BLOOD SPECIMENOrdering Facility: [facility] Address: [address] [place] [address] Performed By: #### 2 4323-8 ####[facility] LABCLIA [id number] [place] [address] [place] IgG SerPl-mCncon 05-22-2023 IgG [Mass/Vol] 954 mg/dL Normal 700-1600 [facility] Comment on above: Order Comment: Speci men Type: BLOOD SPECIMENOrdering Facility: [facility] Address: [address] [place] [address] Performed By: #### 2 465-3, 2472-9 ####[facility] LABCLIA [id number] [address] [place] IgM SerPl-mCncon 05-22-2023 IgM [Mass/Vol] 74 mg/dL Normal 40-230 [facility] Comment on above: Order Comment: Speci men Type: BLOOD SPECIMENOrdering Facility: [facility] Address: [address] [place] [address] Performed By: #### 2 465-3, 2472-9 ####[facility] LABCLIA [id number] [address] [place] CNPNon 05-14-2023 CNPN Telephone (NIQ) ANUPAMA VASQUEZ ([id number]) 1970 F Date Time Provider Department 05/14/23 JESSICA CLARKE During your visit today, we recorded the following information about you: Michelle Lujan 05/14/2023 1:05 PM Signed Left the patient [...] exam [Z00.6] 11/27/2012 Encounter Status:Closed by MICHELLE LUJAN on 05/14/23 Normal [facility] PREG HCG QUALon 09-21-2022 , QUAL Negative Normal NEGATIVE [facility] Comment on above: Performed By: #### P REG #### [facility] [address] [place] [address] Dr. Angel Li IMMUNOGLOBULIN IGG QUANTITAT IVEon 06-06-2022 Immunoglobulin G, Qn, Serum 1032 mg/dL Normal [phone] [facility] Comment on above: Performed By: #### I MIGGQN #### [facility] [address] [address] [address] Angel Li IMMUNOGLOBULIN IGM QUANTITAT IVEon 06-06-2022 Immunoglobulin M, Qn, Serum 46 mg/dL Normal 26-217 [facility] Comment on above: Performed By: #### I MIGMQN #### [facility] [address] [place] [address] Dr. Angel Li CBC AUTO DIFFon 06-05-2022 BASO # 0.0 103/ul Normal 0.0-0.1 [facility] Comment on above: Performed By: #### C BC #### [facility] [address] [place] [address] Dr. Angel Li Basophils/100 WBC (Bld) 0.5 % Normal 0.2-2.0 [facility] Comment on above: Performed By: #### C BC #### [facility] [address] [place] [address] Dr. Angel Li EO # 0.2 103/ul Normal 0.0-0.7 [facility] Comment on above: Performed By: #### C BC #### [facility] [address] [place] [address] Dr. Angel Li Eosinophils/100 WBC (Bld) 2.6 % Normal 0.9-7.0 [facility] Comment on above: Performed By: #### C BC #### [facility] [address] [place] [address] Dr. Angel Li Erythrocyte distribution width (RBC) [Ratio] 14.5 % Normal 11.0-15.0 [facility] Comment on above: Performed By: #### C BC #### [facility] [address] [place] [address] Dr. Angel Li Hematocrit (Bld) [Volume fraction] 36.5 % Normal 36.0-48.0 [facility] Comment on above: Performed By: #### C BC #### [facility] [address] [place] [address] Dr. Angel Li Hemoglobin (Bld) [Mass/Vol] 11.8 g/dL Critically low 12.0-16.0 [facility] Comment on above: Performed By: #### C BC #### [facility] [address] [place] [address] Dr. Angel Li IG # 0.03 10e3/ul Normal 0.00-0.03 [facility] Comment on above: Performed By: #### C BC #### [facility] [address] [place] [address] Dr. Angel Li IG % 0.4 % Normal 0.0-0.5 [facility] Comment on above: Performed By: #### C BC #### [facility] [address] [address] [address] Angel Li LYMPH # 0.8 103/ul Critically low 1.2-3.8 [facility] Comment on above: Performed By: #### C BC #### [facility] [address] [address] [address] Angel Li Lymphocytes/100 WBC (Bld) 9.8 % Critically low 20.5-60.0 [facility] Comment on above: Performed By: #### C BC #### [facility] [address] [place] [address] Dr. Angel Li MANUAL DIFF REQ NO Normal [facility] Comment on above: Performed By: #### C BC #### [facility] [address] [place] [address] Dr. Angel Li MCH (RBC) [Entitic mass] 29.0 pg Normal 26.7-34.0 [facility] Comment on above: Performed By: #### C BC #### [facility] [address] [place] [address] Dr. Angel Li MCHC (RBC) [Mass/Vol] 32.3 g/dL Normal 29.9-35.2 [facility] Comment on above: Performed By: #### C BC #### [facility] [address] [place] [address] Dr. Angel Li MCV (RBC) [Entitic vol] 89.7 fL Normal 81.0-99.0 [facility] Comment on above: Performed By: #### C BC #### [facility] [address] [place] [address] Dr. Angel Li MONO # 1.0 103/ul Critically high 0.3-0.8 [facility] Comment on above: Performed By: #### C BC #### [facility] [address] [place] [address] Dr. Angel Li Monocytes/100 WBC (Bld) 13.0 % Critically high 1.7-12. 0 [facility] Comment on above: Performed By: #### C BC #### [facility] [address] [address] [address] Angel Li NEUT # 5.9 103/ul Normal 1.4-6.5 [facility] Comment on above: Performed By: #### C BC #### [facility] [address] [address] [address] Angel Li Neutrophils/100 WBC (Bld) 73.7 % Normal 43.0-75.0 [facility] Comment on above: Performed By: #### C BC #### [facility] [address] [place] [address] Dr. Angel Li Platelet mean volume (Bld) [Entitic vol] 11.6 fL Normal 9.5-13.5 [facility] Comment on above: Performed By: #### C BC #### [facility] [address] [address] [address] Angel Li PLT 200 103/ul Normal 150-450 [facility] Comment on above: Performed By: #### C BC #### [facility] [address] [place] [address] Dr. Angel Li RBC 4.07 106/ul Critically low 4.20-5.40 [facility] Comment on above: Performed By: #### C BC #### [facility] [address] [place] [address] Dr. Angel Li WBC 8.0 103/ul Normal 4.0-11.0 [facility] Comment on above: Performed By: #### C BC #### [facility] [address] [place] [address] Dr. Angel Li PROF 14(COMP METB)on 023 Albumin [Mass/Vol] 3.4 g/dL Normal 3.4-5.0 [facility] Comment on above: Performed By: #### C MP #### [facility] [address] [place] [address] Dr. Angel Li Albumin/Globulin [Mass ratio] 0.9 {ratio} Normal [facility] Comment on above: Performed By: #### C MP #### [facility] [address] [place] [address] Dr. Angel Li ALP [Catalytic activity/Vol] 122 U/L Critically high 46-116 [facility] Comment on above: Performed By: #### C MP #### [facility] [address] [place] [address] Dr. Angel Li ALT [Catalytic activity/Vol] 35 U/L Normal 14-59 [facility] Comment on above: Performed By: #### C MP #### [facility] [address] [place] [address] Dr. Angel Li Anion gap [Moles/Vol] 9.7 mmol/L Normal [facility] Comment on above: Performed By: #### C MP #### [facility] [address] [place] [address] Dr. Angel Li AST [Catalytic activity/Vol] 32 U/L Normal 15-37 [facility] Comment on above: Performed By: #### C MP #### [facility] [address] [place] [address] Dr. Angel Li Bilirubin [Mass/Vol] 0.4 mg/dL Normal 0.2-1.0 [facility] Comment on above: Performed By: #### C MP #### [facility] [address] [place] [address] Dr. Angel Li Calcium [Mass/Vol] 9.0 mg/dL Normal 8.5-10.1 [facility] Comment on above: Performed By: #### C MP #### [facility] [address] [place] [address] Dr. Angel Li Chloride [Moles/Vol] 103 mmol/L Normal 98-107 [facility] Comment on above: Performed By: #### C MP #### [facility] [address] [place] [address] Dr. Angel Li CO2 [Moles/Vol] 32.3 mmol/L Critically high 21.0-32.0 [facility] Comment on above: Performed By: #### C MP #### [facility] [address] [place] [address] Dr. Angel Li Creatinine [Mass/Vol] 0.97 mg/dL Normal 0.55-1.02 [facility] Comment on above: Performed By: #### C MP #### [facility] [address] [address] [address] Angel Li EGFR-AF KOSOVAN >60 Normal >=60 [facility] Comment on above: Performed By: #### C MP #### [facility] [address] [address] [address] Angel Li EGFR-NON AF KOSOVAN =60 Normal >=60 [facility] Comment on above: Performed By: #### C MP #### [facility] [address] [address] [address] Angel Li Globulin (S) [Mass/Vol] 3.7 g/dL Normal [facility] Comment on above: Performed By: #### C MP #### [facility] [address] [address] [address] Angel Li Glucose [Mass/Vol] 87 mg/dL Normal 74-106 [facility] Comment on above: Performed By: #### C MP #### [facility] [address] [address] [address] Angel Li Potassium [Moles/Vol] 4.0 mmol/L Normal 3.5-5.1 [facility] Comment on above: Performed By: #### C MP #### [facility] [address] [address] [address] Angel Li Protein [Mass/Vol] 7.1 g/dL Normal 6.4-8.2 [facility] Comment on above: Performed By: #### C MP #### [facility] [address] [address] [address] Angel Li Sodium [Moles/Vol] 141 mmol/L Normal 136-145 [facility] Comment on above: Performed By: #### C MP #### [facility] [address] [address] [address] Angel Li Urea nitrogen [Mass/Vol] 11.0 mg/dL Normal 7.0-18.0 [facility] Comment on above: Performed By: #### C MP #### [facility] [address] [address] [address] Angel Li Urea nitrogen/Creatinine [Mass ratio] 11.3 mg/mg Normal [facility] Comment on above: Performed By: #### C MP #### [facility] [address] [address] [address] Angel Li PAP ACOG PANEL 2: 30 to 65on 03-13-2022 . . Normal [facility] Comment on above: Result Comment: Perf ormed at: WB Performed By: #### 4 [id number] #### [facility] [address] [place] [address] Dr. Angel Li Age Gdln ACOG Testing 30-65 [facility] Comment on above: Performed By: #### 4 [id number] #### [facility] [address] [place] [address] Dr. Angel Li DIAGNOSIS: Comment Normal [facility] Comment on above: Result Comment: NEGA TIVE FOR INTRAEPITHELIAL LESION OR MALIGNANCY. Performed at: WB Performed By: #### 4 [id number] #### [facility] [address] [address] [address] Angel Li HPV Aptima Negative Normal [facility] Comment on above: Result Comment: This nucleic acid amplification test detects fourteen high-risk HPV types (16,18,31,33,35,39,45,51,52,56,58,59,66,68) without differentiation. Performed at: =G Performed By: #### 4 [id number] #### [facility] [address] [place] [address] Dr. Angel Li Methodology: Comment [facility] Comment on above: Result Comment: This liquid based ThinPrep(R) pap test was screened with the use of an image guided system. Performed at: WB Performed By: #### 4 [id number] #### [facility] [address] [place] [address] Dr. Angel Li Note: Comment Normal [facility] Comment on above: Result Comment: The Pap smear is a screening test designed to aid in the detection of premalignant and malignant conditions of the uterine cervix. It is not a diagnostic procedure and should not be used as the sole means of detecting cervical cancer. Both false-positive and false-negative reports do occur. . Performed at: WB Performed By: #### 4 [id number] #### [facility] [address] [place] [address] Dr. Angel Li Performed by: Comment Normal [facility] Comment on above: Result Comment: Shyanne Back, Telecommunications Engineer (ASCP) Performed at: WB Performed By: #### 4 [id number] #### [facility] [address] [place] [address] Dr. Angel Li Specimen adequacy: Comment Normal [facility] Comment on above: Result Comment: Sati sfactory for evaluation. Endocervical and/or squamous metaplastic cells (endocervical component) are present. Performed at: WB Performed By: #### 4 [id number] #### [facility] [address] [place] [address] Dr. Angel Li VAGINITIS/VAGINOSIS DNA PROB Marcelino 03-08-2022 Gracia species Negative Normal Negative [facility] Comment on above: Performed By: #### V AGINT #### [facility] [address] [place] [address] Dr. Angel Li Gardnerella vaginalis Positive Abnormal Negative [facility] Comment on above: Performed By: #### V AGINT #### [facility] [address] [place] [address] Dr. Angel Li Trichomonas vaginalis Negative Normal Negative [facility] Comment on above: Performed By: #### V AGINT #### [facility] [address] [place] [address] Dr. Angel Li BRAIN & CERVICAL SPINE MRI D ISCRETE DATAon 11-14-2021 Brain Enhancing Lesions None C [facility] Brain Interval Improvement None [facility] Brain New T2 Lesions [facility] Brain Other Significant MRI Findings None. [facility] Brain Parenchymal Volume Loss None [facility] Brain T2 [place] of Disease Moderate [facility] MRI BRAIN WO/W IVCONon 11-14 [facility] CBC W Auto Differential pane l (Bld)on 09-18-2021 Abs Immature Gran <0.03 <0.10 k/uL [facility] Basophils (Bld) [#/Vol] 0.03 10*3/uL <0.11 k/uL [facility] Basophils/100 WBC (Bld) 0.5 % C [facility] Differential cell count method Nom (Bld) Auto [facility] Eosinophils (Bld) [#/Vol] 0.15 10*3/uL <0.46 k/uL [facility] Eosinophils/100 WBC (Bld) 2.4 % [facility] Erythrocyte distribution width (RBC) [Ratio] 14.2 % 11.5 - 15.0 % [facility] Hematocrit (Bld) [Volume fraction] 41.5 % 36.0 - 46.0 % [facility] Hemoglobin (Bld) [Mass/Vol] 12.9 g/dL 11.5 - 15.5 g/dL [facility] Immature Gran % 0.3 % [facility] Lymphocytes (Bld) [#/Vol] 0.60 10*3/uL Low 1.00 - 4.00 k/uL [facility] Lymphocytes/100 WBC (Bld) 9.7 % [facility] MCH (RBC) [Entitic mass] 29.3 pg 26. 0 - 34.0 pg [facility] MCHC (RBC) [Mass/Vol] 31.1 g/dL 30.5 - 36.0 g/dL [facility] MCV (RBC) [Entitic vol] 94.3 fL 80.0 - 100.0 fL [facility] Monocytes (Bld) [#/Vol] 0.74 10*3/uL <0.87 k/uL [facility] Monocytes/100 WBC (Bld) 12.0 % C [facility] Neutrophils (Bld) [#/Vol] 4.62 10*3/uL 1.45 - 7.50 k/uL [facility] Neutrophils/100 WBC (Bld) 75.1 % [facility] Nucleated RBC (Bld) [#/Vol] 10*3/uL <0.01 k/uL [facility] Nucleated RBC/100 WBC (Bld) [Ratio] 0.0 /100 WBC [facility] Platelet mean volume (Bld) [Entitic vol] 12.5 fL 9.0 - 12.7 fL [facility] Platelets (Bld) [#/Vol] 181 10*3/uL 150 - 400 k/uL [facility] RBC (Bld) [#/Vol] 4.40 10*6/uL 3.90 - 5.20 m/uL [facility] WBC (Bld) [#/Vol] 6.16 10*3/uL 3.70 - 11.00 k/uL [facility] Comprehensive metabolic 2000 panelon 09-18-2021 Albumin [Mass/Vol] 3.8 g/dL Low 3.9 - 4.9 g/dL [facility] ALP [Catalytic activity/Vol] 114 U/L 34 - 123 U/L [facility] ALT [Catalytic activity/Vol] 16 U/L 7 - 38 U/L [facility] Anion gap [Moles/Vol] 11 mmol/L 9 - 18 mmol/L [facility] AST [Catalytic activity/Vol] 21 U/L 13 - 35 U/L [facility] Bilirubin [Mass/Vol] 0.4 mg/dL 0.2 - 1 .3 mg/dL [facility] Calcium [Mass/Vol] 9.0 mg/dL 8.5 - 10. 2 mg/dL [facility] Chloride [Moles/Vol] 102 mmol/L 97 - 10 5 mmol/L [facility] CO2 [Moles/Vol] 25 mmol/L 22 - 30 mmol/L [facility] Creatinine [Mass/Vol] 0.97 mg/dL High 0.58 - 0.96 mg/dL [facility] Estimated Glomerular Filtration Rate 70 mL/min/1.73m >=60 mL/min/1.7 3m [facility] Glucose [Mass/Vol] 60 mg/dL Low 74 - 99 mg/dL [facility] Potassium [Moles/Vol] 4.0 mmol/L 3.7 - 5.1 mmol/L [facility] Protein [Mass/Vol] 7.0 g/dL 6.3 - 8.0 g/dL [facility] Sodium [Moles/Vol] 138 mmol/L 136 - 144 mmol/L [facility] Urea nitrogen [Mass/Vol] 10 mg/dL 7 - 21 mg/dL [facility] LIPID PANEL BASICon 09-19-19 Cholesterol [Mass/Vol] 142 mg/dL <200 mg/dL [facility] Cholesterol in HDL [Mass/Vol] 39 mg/dL Low >39 mg/dL [facility] Cholesterol in LDL [Mass/Vol] 72 mg/dL <100 mg/dL [facility] Cholesterol in LDL/Cholesterol in HDL [Mass ratio] 1.85 {ratio} <2.54 [facility] Cholesterol in VLDL [Mass/Vol] 31 mg/dL High <30 mg/dL [facility] Cholesterol non HDL [Mass/Vol] 103 mg/dL <130 mg/dL [facility] Cholesterol.total/Choles terol in HDL [Mass ratio] 3.64 {ratio} <5.10 [facility] Fasting Time 14 hours [facility] Triglyceride [Mass/Vol] 157 mg/dL High <150 mg/dL [facility] COVID-19 SOFIAOrdered By: Mague Rosa on 09-01-2021 SARS-CoV+SARS-CoV-2 (COVID-19) Ag IA.rapid Ql (Resp) Negative Negative [facility] Comment on above: This is a duplicate Wilma SARS Antigen (ELAINA) result to be used for statistical tracking purpose only. No Panel InformationOrdered By: Liyah Rosa on 09-01-2021 SARS Antigen (LFIA) [facility] CBC W/AUTO DIFFon 05-07-2017 % NEUTROPHILS 69.5 [...] mass conc 78 mg/dL Normal 70-100 [facility] Comment on above: Result Comment: DIAG NOSTIC THRESHOLDS FOR DIABETES AND IMPAIRED FASTING GLUCOSE (IFG) FASTING PLASMA GLUCOSE NORMAL <100 mg/dL IFG 100-125 mg/dL DIABETES >/= 126 mg/dL Potassium molar conc 4.1 mmol/L Normal 3.5-5.4 Path [facility] Sodium 144 mmol/L Normal 134-147 [facility] [...] LDL to HDL Ratio 1.7 Normal <3.5 Myrio LDL-CHOL, CALCULATED 95 mg/dL Normal <130 [facility] Comment on above: Result Comment: LDL CHOLESTEROL REFERENCE RANGE FOR 0-19 YEARS: DESIRABLE <110 mg/dL, BORDERLINE 110-129, HIGH RISK >130 LDL CHOLESTEROL REFERENCE RANGE FOR ADULTS: DESIRABLE <100 mg/dL, BORDERLINE 130-159, HIGH RISK >160REFERENCE RANGES REVISED 10/28/15 ACCORDING TO NCEP GUIDELINES Triglyceride 107 mg/dL Normal <150 [facility] VLDL-CHOL, CALCULATED 21 mg/dL Normal <30 [facility] TSH WITH FT4 REFLEXon 2016 Thyroid stimulating hormone (TSH) 1.480 uIU/mL Normal 0.40-4.40 [facility] Comment on above: Result Comment: [facility] [address] [place], [place] [address]Laboratory Director: FERMÍN MairnelliIA No. [id number] CAP Accreditation No. [id number] CARDIOPULMONARY REPORT CLDon 12-24-2016 CARDIOPULMONARY REPORT [facility] ([facility]) [address] [place] [address] [place], [place] [address] Name: ANUPAMA VASQUEZ Visit ID: [id number] Record #: [id number] : 1970CC: Frances Ro CNP Pulmonary Function TestDate: 12/20/2016INDICATIONS FOR THE STUDY:Cough and tobacco use.REFERRING PHYSICIAN:Frances Ro CNPTEST DESCRIPTION:Patient gave good effort and cooperation. [...] seen. Clinical correlation is recommended. Author: CAROL Rao/jerry/[id number] T: 12/24/2016 10:41 cc: Frances Ro CNP Electronically Authenticated and Edited by:Jacki Hess MD On 12/31/2016 09:16 AM EDT [facility] Vital Signs Date Time Vital Sign Value Performing Clinician Facility 09-28-2024 23:34-0400 Diastolic blood pressure 63 mm[Hg] [facility] 09-28-2024 23:34-0400 Heart rate 83 /min [facility] 09-28-2024 23:34-0400 Respiratory rate 15 /min [facility]io Fern[facility] 09-28-2024 23:34-0400 Systolic blood pressure 115 mm[Hg] Julio Fernandez MD Work Phone: [facility] 09-28-2024 20:38-0400 Body temperature 98.1 [degF] Julio Fernandez MD Work Phone: [facility] 09-28-2024 20:38-0400 SaO2% (BldA) [Mass fraction] 100 % Julio Fernandez MD Work Phone: [facility] 09-28-2024 05:00-0400 Body mass index (BMI) [Ratio] 40.87 kg/m2 Julio Fernandez MD Work Phone: [facility] 09-28-2024 05:00-0400 Body weight 114.8 kg Julio Fernandez MD Work Phone: [facility] 09-25-2024 01:00-0400 Body height 167.6 cm Julio Fernandez MD Work Phone: [facility] 09-19-2024 03:52-0400 SaO2% (BldA) [Mass fraction] 95 % Julio Fernandez MD Work Phone: [facility] 09-19-2024 03:52-0400 SaO2% (BldA) [Mass fraction] 78 % Julio Fernandez MD Work Phone: [facility] 09-19-2024 03:47-0400 SaO2% (BldA) [Mass fraction] 78 % [facility] Comment on above: Performed By: #### PINR #### [facility] ([facility]) [address] [place] [address] [facility] 09-16-2024 13:14-0400 Body temperature 96.8 [degF] Adonay PHILLIPS Work Phone: [facility] 09-16-2024 13:14-0400 Diastolic blood pressure 85 mm[Hg] Adonay Castillo YARDER PUNCHER-REGENERATOR OPERATOR Work Phone: [facility] 09-16-2024 13:14-0400 Heart rate 74 /min Adonay Castillo YARDER PUNCHER-REGENERATOR OPERATOR Work Phone: [facility] 09-16-2024 13:14-0400 Systolic blood pressure 147 mm[Hg] Adonay Castillo APRN-REGENERATOR OPERATOR Work Phone: [facility] 08-18-2024 09:18-0400 Body mass index (BMI) [Ratio] 44.96 kg/m2 Fred Bonitaz [employer]E [employer]ER Work Phone: [facility] 08-18-2024 09:18-0400 Body temperature 98.2 [degF] Fred Bonitaz [employer]E [employer]ER Work Phone: [facility] 08-18-2024 09:18-0400 Body weight 122.56 kg Fred Aichholz [employer] Work Phone: [facility] 08-18-2024 09:18-0400 Diastolic blood pressure 80 mm[Hg] Fred Aichholz [employer]E [employer]ER Work Phone: [facility] 08-18-2024 09:18-0400 Heart rate 98 /min Fred Aichholz [employer]ER Work Phone: [facility] 08-18-2024 09:18-0400 Respiratory rate 24 /min Fred Aichholz [employer]E [employer]ER Work Phone: [facility] 08-18-2024 09:18-0400 SaO2% (BldA) [Mass fraction] 95 % Fred Aichholz [employer]E [employer]ER Work Phone: [facility] 08-18-2024 09:18-0400 Systolic blood pressure 110 mm[Hg] Fred Aichholz [employer]E TRUCKER Work Phone: [facility] 06-17-2024 09:33-0500 Body mass index (BMI) [Ratio] 47.09 kg/m2 Sherrie Boone [employer]E [employer]ER Work Phone: [facility] 06-17-2024 09:33-0500 Body temperature 97.7 [degF] Sherrie Boone CONE TRUCKER Work Phone: [facility] 06-17-2024 09:33-0500 Body weight 128.37 kg Sherrie Boone [employer]E [employer]ER Work Phone: [facility] 06-17-2024 09:33-0500 Diastolic blood pressure 82 mm[Hg] Sherrie Boone [employer]E TR[employer]ER Work Phone: [facility] 06-17-2024 09:33-0500 Heart rate 100 /min Sherrie Boone [employer]E [employer]ER Work Phone: [facility] 06-17-2024 09:33-0500 Respiratory rate 16 /min Sherrie Boone [employer]E [employer]ER Work Phone: [facility] 06-17-2024 09:33-0500 SaO2% (BldA) [Mass fraction] 97 % Sherrie Boone [employer]E [employer]ER Work Phone: [facility] 06-17-2024 09:33-0500 Systolic blood pressure 120 mm[Hg] Sherrie Boone [employer]E TRUCKER Work Phone: [facility] 05-18-2024 09:18-0500 Body height 165.1 cm Fred Basil [employer]ER Work Phone: [facility] 05-18-2024 09:18-0500 Body mass index (BMI) [Ratio] 46.93 kg/m2 Fred Sonuholz [employer]E [employer]ER Work Phone: [facility] 05-18-2024 09:18-0500 Body temperature 98.1 [degF] Fred Bonitaz [employer]E [employer]ER Work Phone: [facility] 05-18-2024 09:18-0500 Body weight 127.91 kg Fred Bonitaz [employer]E [employer]ER Work Phone: [facility] 05-18-2024 09:18-0500 Diastolic blood pressure 90 mm[Hg] Fred Bonitaz [employer]E [employer]ER Work Phone: [facility] 05-18-2024 09:18-0500 Heart rate 81 /min Fred Bonitaz [employer]E [employer]ER Work Phone: [facility] 05-18-2024 09:18-0500 Respiratory rate 19 /min Fred Bonitaz [employer]E [employer]ER Work Phone: [facility] 05-18-2024 09:18-0500 SaO2% (BldA) [Mass fraction] 95 % Fred Bonitaz [employer]E [employer]ER Work Phone: [facility] 05-18-2024 09:18-0500 Systolic blood pressure 144 mm[Hg] Fred Sonuholz [employer]E [employer]ER Work Phone: [facility] 04-27-2024 09:03-0500 Body height 165.1 cm [facility] Work Phone: [facility] 04-27-2024 09:03-0500 Body mass index (BMI) [Ratio] 46.43 kg/m2 [facility] Work Phone: [facility] 04-27-2024 09:03-0500 Body weight 126.55 kg [facility] Work Phone: [facility] 03-05-2024 10:04-0400 Body height 165.1 cm Fred Bonitaz [employer]E [employer]ER Work Phone: [facility] 03-05-2024 10:04-0400 Body mass index (BMI) [Ratio] 46.49 kg/m2 Fred Monikahholz [employer]ER Work Phone: [facility] 03-05-2024 10:04-0400 Body temperature 97.59 [degF] Fred Bonitaz [employer]ER Work Phone: [facility] 03-05-2024 10:04-0400 Body weight 126.73 kg Fred Monikahholz [employer]ER Work Phone: [facility] 03-05-2024 10:04-0400 Diastolic blood pressure 82 mm[Hg] Fredvirginia Tellezholz [employer]E TR[employer]ER Work Phone: [facility] 03-05-2024 10:04-0400 Heart rate 82 /min Fredvirginia Tellezholz [employer]E [employer]ER Work Phone: [facility] 03-05-2024 10:04-0400 Respiratory rate 18 /min Fred Sonuholz [employer]ER Work Phone: [facility] 03-05-2024 10:04-0400 SaO2% (BldA) [Mass fraction] 97 % Fred Sonuholz [employer]ER Work Phone: [facility] 03-05-2024 10:04-0400 Systolic blood pressure 112 mm[Hg] Fred Aichholz [employer]E [employer]ER Work Phone: [facility] 02-25-2024 08:32-0400 Body height 165.1 cm Eliazar Brooks DO Work Phone: [facility] 02-25-2024 08:32-0400 Body mass index (BMI) [Ratio] 48.09 kg/m2 Eliazar Brooks DO Work Phone: [facility] 02-25-2024 08:32-0400 Body weight 131.09 kg Eliazar Brooks DO Work Phone: [facility] 02-10-2024 17:11-0400 Heart rate 82 /min Eliazar Brooks [facility] 02-10-2024 17:11-0400 SaO2% (BldA) [Mass fraction] 94 % Eliazar Brooks [facility] 02-10-2024 17:11-0400 Diastolic blood pressure 89 mm[Hg] Eliazar Brooks [facility] 02-10-2024 17:11-0400 Mean blood pressure 109 mm[Hg] Eliazar Brooks [facility] 02-10-2024 17:11-0400 Systolic blood pressure 148 mm[Hg] Eliazar Brooks [facility] 02-10-2024 17:11-0400 Respiratory rate 16 /min Eliazar Cecilia [facility] 02-10-2024 17:11-0400 Body temperature 98.24 [degF] Eliazar Brooks [facility] 02-10-2024 16:06-0400 Heart rate 81 /min Eliazar Brooks [facility] 02-10-2024 16:06-0400 SaO2% (BldA) [Mass fraction] 99 % Eliazar Brooks [facility] 02-10-2024 16:06-0400 Diastolic blood pressure 81 mm[Hg] Eliazar Brooks [facility] 02-10-2024 16:06-0400 Mean blood pressure 98 mm[Hg] Eliazar Brooks [facility] 02-10-2024 16:06-0400 Systolic blood pressure 134 mm[Hg] Eliazar Brooks [facility] 02-10-2024 16:05-0400 Respiratory rate 16 /min Eliazar Brooks [facility] 02-10-2024 16:00-0400 Body temperature 97.52 [degF] Eliazar Brooks [facility] 02-10-2024 16:00-0400 Respiratory rate 22 /min Eliazar Brooks [facility] 02-10-2024 16:00-0400 SaO2% (BldA) [Mass fraction] 95 % Eliazar Brooks [facility] 02-10-2024 16:00-0400 Systolic blood pressure 139 mm[Hg] Eliazar Brooks [facility] 02-10-2024 15:50-0400 Mean blood pressure 106 mm[Hg] Eliazar Brooks [facility] 02-10-2024 15:50-0400 Respiratory rate 24 /min Eliazar Brooks [facility] 02-10-2024 15:45-0400 Respiratory rate 9 /min Eliazar Brooks [facility] 02-10-2024 15:37-0400 Blood Pressure Location Eliazar Brooks [facility] 02-10-2024 15:37-0400 Body temperature 97.7 [degF] Eliazar Brooks [facility] 02-10-2024 15:30-0400 Respiratory rate 18 /min Eliazar Brooks [facility] 02-10-2024 12:04-0400 Blood Pressure Location Eliazar Brooks [facility] 02-10-2024 12:04-0400 Mean blood pressure 100 mm[Hg] Eliazar Brooks [facility] 02-10-2024 12:04-0400 Heart rate 94 /min Eliazar Brooks [facility] 02-10-2024 12:03-0400 Body temperature 97.88 [degF] Eliazar Brooks [facility] 02-10-2024 12:03-0400 Blood Pressure Location Eliazar Brooks [facility] 02-03-2024 14:28-0400 Body height 165.1 cm Fred Gracia [employer]ER Work Phone: [facility] 02-03-2024 14:28-0400 Body mass index (BMI) [Ratio] 48.09 kg/m2 Fred Gracia [employer]ER Work Phone: [facility] 02-03-2024 14:28-0400 Body temperature 98.49 [degF] Fred Gracia [employer]ER Work Phone: [facility] 02-03-2024 14:28-0400 Body weight 131.09 kg Fred Gracia [employer]ER Work Phone: [facility] 02-03-2024 14:28-0400 Diastolic blood pressure 90 mm[Hg] Fred Gracia [employer]ER Work Phone: [facility] 02-03-2024 14:28-0400 Heart rate 83 /min Fred Gracia [employer]ER Work Phone: [facility] 02-03-2024 14:28-0400 Respiratory rate 18 /min Fred Gracia [employer]ER Work Phone: [facility] 02-03-2024 14:28-0400 SaO2% (BldA) [Mass fraction] 93 % Fred Gracia [employer]ER Work Phone: [facility] 02-03-2024 14:28-0400 Systolic blood pressure 128 mm[Hg] Fred Gracia [employer]E [employer]ER Work Phone: [facility] 01-30-2024 10:45-0400 Body height 165.1 cm Eliazar Brooks DO Work Phone: [facility] 01-30-2024 10:45-0400 Body mass index (BMI) [Ratio] 48.92 kg/m2 Eliazar Cecilia DO Work Phone: [facility] 01-30-2024 10:45-0400 Body weight 133.36 kg Eliazar Cecilia DO Work Phone: [facility] 07-10-2023 15:53-0500 Body height 167.6 cm Paris Paris DO Work Phone: [facility] 07-10-2023 15:53-0500 Body weight 134.26 kg Paris Paris DO Work Phone: [facility] 07-10-2023 15:53-0500 Heart rate 89 /min Paris Paris DO Work Phone: [facility] 07-10-2023 15:53-0500 SaO2% (BldA) [Mass fraction] 97 % Paris Paris DO Work Phone: [facility] 06-26-2023 11:34-0500 Body height 165.1 cm Shaikh Jonn BENITEZ Work Phone: [facility] 06-26-2023 11:34-0500 Body mass index (BMI) [Ratio] 48.09 kg/m2 Shaikh Jonn BNEITEZ Work Phone: [facility] 06-26-2023 11:34-0500 Body temperature 98.6 [degF] Shaikh Jonn BENITEZ Work Phone: [facility] 06-26-2023 11:34-0500 Body weight 131.09 kg Shaikh Jonn BENITEZ Work Phone: [facility] 06-26-2023 11:34-0500 Diastolic blood pressure 80 mm[Hg] Shaikh Jonn BENITEZ Work Phone: [facility] 06-26-2023 11:34-0500 Heart rate 77 /min Shaikh Jonn BENITEZ Work Phone: [facility] 06-26-2023 11:34-0500 SaO2% (BldA) [Mass fraction] 96 % Shaikh Jonn BENITEZ Work Phone: [facility] 06-26-2023 11:34-0500 Systolic blood pressure 136 mm[Hg] Shaikh Jonn BENITEZ Work Phone: [facility] 04-18-2022 10:30-0500 Body height 173.99 cm Liyah Rosa Other [employer] Other 04-18-2022 10:30-0500 Body mass index (BMI) [Ratio] 46.68 kg/m2 Liyah Rosa Other [employer] Other 04-18-2022 10:30-0500 Body weight 141.34 kg Liyah Rosa Other [employer] Other 04-18-2022 10:30-0500 Diastolic blood pressure 89 mm[Hg] Liyah Rosa Other [employer] Other 04-18-2022 10:30-0500 Systolic blood pressure 129 mm[Hg] Liyah Rosa Other [employer] Other 03-22-2022 12:54-0400 Body height 172.7 cm Jessica Young PA-C Work Phone: [facility] 03-22-2022 12:54-0400 Body weight 131.54 kg Jessica Young PA-C Work Phone: [facility] 03-22-2022 12:54-0400 Diastolic blood pressure 76 mm[Hg] Jessica Young PA-C Work Phone: [facility] 03-22-2022 12:54-0400 Heart rate 108 /min Jessica Young PA-C Work Phone: [facility] 03-22-2022 12:54-0400 Systolic blood pressure 129 mm[Hg] Jessica Young PA-C Work Phone: [facility] 03-22-2022 09:30-0400 Body temperature 97 [degF] Infusion 10 Work Phone: [facility] 03-22-2022 09:30-0400 Diastolic blood pressure 83 mm[Hg] Infusion 10 Work Phone: [facility] 03-22-2022 09:30-0400 Heart rate 79 /min Infusion 10 Work Phone: [facility] 03-22-2022 09:30-0400 Systolic blood pressure 152 mm[Hg] Infusion 10 Work Phone: [facility] 12-13-2021 10:30-0400 Body height 173.99 cm Liyah Rosa Other [employer] Other 12-13-2021 10:30-0400 Body mass index (BMI) [Ratio] 45.55 kg/m2 Liyah Rosa Other [facility] [employer] Other 12-13-2021 10:30-0400 Body weight 137.89 kg Liyah Rosa Other [facility] [employer] Other 11-14-2021 08:42-0400 Body height 174 cm Jessica Young PA-C Work Phone: [facility] 11-14-2021 08:42-0400 Body weight 132 kg Jessica Young PA-C Work Phone: [facility] 11-14-2021 08:42-0400 Diastolic blood pressure 68 mm[Hg] Jessica Young PA-C Work Phone: [facility] 11-14-2021 08:42-0400 Heart rate 88 /min Jessica Young PA-C Work Phone: [facility] 11-14-2021 08:42-0400 Systolic blood pressure 112 mm[Hg] Jessica Young PA-C Work Phone: [facility] 09-18-2021 12:00-0400 Body temperature 97.9 [degF] Infusion 2 Work Phone: [facility] 09-18-2021 12:00-0400 Diastolic blood pressure 89 mm[Hg] Infusion 2 Work Phone: [facility] 09-18-2021 12:00-0400 Heart rate 93 /min Infusion 2 Work Phone: [facility] 09-18-2021 12:00-0400 Respiratory rate 16 /min Infusion 2 Work Phone: [facility] 09-18-2021 12:00-0400 Systolic blood pressure 131 mm[Hg] Infusion 2 Work Phone: [facility] 09-18-2021 08:00-0400 Body height 174 cm Infusion 2 Work Phone: [facility] 09-18-2021 08:00-0400 Body weight 117.94 kg Infusion 2 Work Phone: [facility] 09-05-2021 10:45-0400 Diastolic blood pressure 68 mm[Hg] Services [facility] Work Phone: [facility] 09-05-2021 10:45-0400 Heart rate 91 /min Services [facility] Work Phone: [facility] 09-05-2021 10:45-0400 Respiratory rate 18 /min Services [facility] Work Phone: [facility] 09-05-2021 10:45-0400 SaO2% (BldA) [Mass fraction] 99 % Services [facility] Work Phone: [facility] 09-05-2021 10:45-0400 Systolic blood pressure 122 mm[Hg] Services [facility] Work Phone: [facility] 09-05-2021 08:26-0400 Body height 173.99 cm Services [facility] Work Phone: [facility] 09-05-2021 08:26-0400 Body mass index (BMI) [Ratio] 43.4 kg/m2 Services [facility] Work Phone: [facility] 09-05-2021 08:26-0400 Body temperature 98.2 [degF] Services [facility] Work Phone: [facility] 09-05-2021 08:26-0400 Body weight 131.54 kg Services [facility] Work Phone: [facility] 08-14-2021 11:30-0400 Body height 173.99 cm Liyah Rosa Other [employer] Other 08-14-2021 11:30-0400 Body mass index (BMI) [Ratio] 43.45 kg/m2 Liyah Rosa Other [employer] Other 08-14-2021 11:30-0400 Body weight 131.54 kg Liyah Rosa Other [employer] Other Encounters Encounter Date Encounter Type Care Provider Facility Start: 11-24-2024 ambulatory REGINA Keila MATTHEWS Facili ty:[facility] Start: 10-09-2024 End: 10-09-2024 ambulatory REGINA E BYRON Facility:[facility] [place] [facility] Start: 10-06-2024 ambulatory REGINA BYRON Facility :[facility] Start: 09-29-2024 End: 09-29-2024 Telephone encounter Anya Soni RN [facility] Comment on above: incision Start: 09-19-2024 End: 09-19-2024 ambulatory UNKNOWN PROVIDER Facility:[facility] Start: 09-18-2024 End: 09-29-2024 Evaluation and management of inpatient Lewis Botello DO Work Phone: [facility] Acute Start: 09-18-2024 End: 09-18-2024 Clinisync Result Encounter Sary Colin MD Work Phone: [facility] Unsolicited Start: 09-18-2024 End: 09-18-2024 Clinisync Result Encounter Sary Colin MD Work Phone: [facility] Unsolicited Start: 09-16-2024 End: 09-16-2024 ambulatory ADONAY Saavedra JONATHAN [facility] Start: 09-16-2024 End: 09-16-2024 Office outpatient new 20 minutes Adonay Castillo YARDER PUNCHER-REGENERATOR OPERATOR Work Phone: [facility] Comment on above: Dermatitis associate d with moisture (Primary Dx); Pressure injury of left buttock, stage 2 ([facility]) Start: 08-28-2024 End: 09-01-2024 Emergency department patient visit MUNIRA HARO [facility] Start: 08-28-2024 End: 09-01-2024 Evaluation and management of inpatient FRED Tevin GRACIA [facility] Start: 08-23-2024 End: 08-25-2024 Clinisync Result Encounter Generic External Data Provider [facility] Unsolicited Start: 08-23-2024 End: 08-25-2024 Clinisync Result Encounter Generic External Data Provider [facility] Unsolicited Start: 08-23-2024 End: 08-23-2024 Refill Fred Gracia [employer] Work Phone: [facility] Comment on above: 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 (Primary Dx); Yeast dermatitis Start: 08-22-2024 End: 08-22-2024 ambulatory Tripp Gruber [facility] Work Phone: Start: 08-22-2024 End: 08-22-2024 Departed Referred Tripp Gruber MD Work Phone: [facility] Start: 08-22-2024 End: 08-23-2024 Clinisync Result Encounter Generic External Data Provider [facility] External [facility] Unsolicited Start: 08-22-2024 End: 08-23-2024 Clinisync Result Encounter Generic External Data Provider [facility] External [facility] Unsolicited Start: 08-18-2024 End: 08-18-2024 Bamboo flowsheet Fred Gracia [employer]ER Work Phone: [facility] Start: 08-18-2024 End: 08-18-2024 Bamboo flowsheet Fred Gracia [employer]ER Work Phone: [facility] Start: 08-18-2024 End: 08-18-2024 Office outpatient visit 25 minutes Fred Gracia [employer] Work Phone: [facility] Comment on above: Generalized anxiety disorder with panic attacks (CMS/HCC) (Primary Dx); Morbid (severe) obesity due to excess calories (CMS/HCC); Major depressive disorder, recurrent, moderate (CMS/HCC); Primary insomnia Start: 08-18-2024 End: 08-18-2024 ambulatory FRED BASIL Not Available Start: 08-03-2024 End: 08-03-2024 Telephone encounter Elva Rodriguez [employer] Work Phone: [facility] Start: 07-07-2024 End: 07-07-2024 Bamboo flowsheet Fred Monikaaimee [employer]ER Work Phone: [facility] Start: 07-07-2024 End: 07-07-2024 Bamboo flowsheet Fred Monikareyholz [employer] Work Phone: [facility] Start: 07-07-2024 End: 07-07-2024 ambulatory FRED MONIKAReyHOLZ Not Available Start: 06-30-2024 End: 06-30-2024 Clinisync Result Encounter Fred Frankaimee [employer] Work Phone: [facility] External [facility] Unsolicited Start: 06-30-2024 End: 06-30-2024 Clinisync Result Encounter Fred Monikacaitiez [employer] Work Phone: [facility] Unsolicited Start: 06-17-2024 End: 06-17-2024 Bamboo flowsheet Sherrie Boone [employer] Work Phone: [facility] Start: 06-17-2024 End: 06-17-2024 Bamboo flowsheet Sherrie Boone [employer] Work Phone: [facility] Start: 06-17-2024 End: 06-17-2024 Office outpatient visit 10 minutes Sherrie Boone [employer] Work Phone: [facility] Comment on above: Acute non-recurrent frontal sinusitis (Primary Dx) Start: 06-17-2024 End: 06-17-2024 ambulatory SHERRIE BOONE Not Available Start: 05-18-2024 End: 05-18-2024 Bamboo flowsheet Fred Sonuholz [employer] Work Phone: [facility] Start: 05-18-2024 End: 05-18-2024 Bamboo flowsheet Fred Sonuholz [employer] Work Phone: [facility] Start: 05-18-2024 End: 05-18-2024 Patient encounter procedure Fred Gracia [employer] Work Phone: [facility] Comment on above: Encounter for subseq uent annual wellness visit (AWV) in Medicare patient (Primary Dx); LORENZO (obstructive sleep apnea); Multiple sclerosis ([facility]); Primary insomnia; Class 3 severe obesity without serious comorbidity with body mass index (BMI) of 45.0 to 49.9 in adult, unspecified obesity type ([facility]); Encounter for screening mammogram for malignant neoplasm of breast; Moderate episode of recurrent major depressive disorder ([facility]); Generalized anxiety disorder with panic attacks ([facility]) Start: 05-18-2024 End: 05-18-2024 ambulatory FRED GRACIA Not Available Start: 05-07-2024 End: 05-07-2024 Orders Only Jessica Clarke PA-C Work Phone: [facility] Start: 05-04-2024 End: 05-05-2024 Telephone encounter Aria Kumar PT [facility] Comment on above: re: PT Eval tomorrow ; Call Back Start: 04-27-2024 End: 04-27-2024 Telephone encounter Fred Gracia [employer] Work Phone: [facility] Start: 04-27-2024 End: 04-27-2024 Patient encounter procedure Yahaira Vazquez PA Work Phone: [facility] Comment on above: Adhesive capsulitis of left shoulder (Primary Dx); S/P arthroscopy of left shoulder Start: 04-27-2024 End: 04-27-2024 ambulatory YAHAIRA VAZQUEZ Not Available Start: 04-26-2024 End: 04-27-2024 Refill Fred Gracia [employer] Work Phone: [facility] Comment on above: Anxiety and depressi on ([facility]) Start: 04-15-2024 End: 04-15-2024 Refill Fred Basil [employer] Work Phone: [facility] Comment on above: Acute cough (Primary Dx) Start: 04-14-2024 End: 04-14-2024 Refill Fred Basil [employer] Work Phone: [facility] Comment on above: Acute non-recurrent sinusitis of other sinus (Primary Dx) Start: 04-01-2024 End: 04-02-2024 Telephone encounter Aria Kumar PT [facility] Comment on above: [...] 03-25-2024 End: 03-25-2024 Bamboo flowsheet Inderjit Pelletier DIGITAL ANALYTICS MANAGER [facility] Start: 03-25-2024 End: 03-25-2024 Bamboo flowsheet Inderjit Pelletier DIGITAL ANALYTICS MANAGER [facility] Start: 03-25-2024 End: 03-25-2024 ambulatory Inderjit Pelletier DIGITAL ANALYTICS MANAGER [facility] Comment on above: Left shoulder pain, unspecified chronicity (Primary Dx); S/P arthroscopy of left shoulder Start: 03-13-2024 End: 03-13-2024 Bamboo flowsheet Inderjit Pelletier DIGITAL ANALYTICS MANAGER [facility] Start: 03-13-2024 End: 03-13-2024 Bamboo flowsheet Inderjit Pelletier DIGITAL ANALYTICS MANAGER [facility] Start: 03-13-2024 End: 03-13-2024 ambulatory Inderjit Pelletier DIGITAL ANALYTICS MANAGER [facility] Comment on above: Left [...] Start: 03-06-2024 End: 03-06-2024 ambulatory Inderjit Pelletier DIGITAL ANALYTICS MANAGER [facility] Comment on above: S/P arthroscopy of l eft shoulder (Primary Dx) Start: 03-05-2024 End: 03-05-2024 Bamboo flowsheet Fred Monikareyvicky [employer] Work Phone: [facility] Start: 03-05-2024 End: 03-05-2024 Bamboo flowsheet Fred Monikareyvicky [employer]ER Work Phone: [facility] Start: 03-05-2024 End: 03-05-2024 Office outpatient visit 15 minutes Fred Monikareyvicky [employer] Work Phone: [facility] Comment on above: Anxiety and depressi on (CMS/HCC) (Primary Dx); Needs flu shot; Candidiasis of skin Start: 03-05-2024 End: 03-05-2024 ambulatory FRED MONIKAReyVICKY Not Available Start: 03-03-2024 End: 03-03-2024 Bamboo flowsheet Inderjit Pelletier DIGITAL ANALYTICS MANAGER [facility] Start: 03-03-2024 End: 03-03-2024 Bamboo flowsheet Inderjit Pelletier DIGITAL ANALYTICS MANAGER [facility] Start: 03-03-2024 End: 03-03-2024 ambulatory Inderjit Pelletier DIGITAL ANALYTICS MANAGER [facility] Comment on above: S/P arthroscopy of l eft shoulder (Primary Dx) Start: 02-28-2024 End: 02-28-2024 Bamboo flowsheet Aria Kumar PT [facility] Start: 02-28-2024 End: 02-28-2024 Bamboo flowsheet Aria Kumar PT [facility] Start: 02-28-2024 End: 02-28-2024 ambulatory Aria Kumar PT [facility] Comment on above: [...] to same day surgery center Eliazar Brooks [facility] Start: 02-10-2024 End: 02-10-2024 ambulatory Eliazar Brooks Facility:[facility] Start: 02-05-2024 End: 02-05-2024 ambulatory [facility] Facility:[facility] Start: 02-03-2024 End: 02-03-2024 Office outpatient visit 15 minutes Fred Gracia [employer] Work Phone: [facility] Comment on above: Diverticulitis (Prim donna Dx); Class 3 severe obesity without serious comorbidity with body mass index (BMI) of 45.0 to 49.9 in adult, unspecified obesity type ([facility]/HCC) Start: 02-03-2024 End: 02-03-2024 Bamboo flowsheet Fred Gracia [employer] Work Phone: [facility] Start: 02-03-2024 End: 02-03-2024 Bamboo flowsheet Fred Gracia [employer] Work Phone: [facility] Start: 02-03-2024 End: 02-03-2024 ambulatory FRED GRACIA Not Available Start: 01-30-2024 End: 01-30-2024 Bamboo flowsheet Eliazar Brooks DO Work Phone: [facility] Start: 01-30-2024 End: 01-30-2024 Bamboo flowsheet Eliazar Brooks DO Work Phone: [facility] Start: 01-30-2024 End: 01-30-2024 Patient encounter procedure Eliazar Carbone Brooks DO Work Phone: [facility] Comment on above: Pre-op testing (Prim donna Dx); Rotator cuff impingement syndrome of left shoulder Start: 01-30-2024 End: 01-30-2024 Patient encounter status Eliazar Raf Cecilia DO Work Phone: [facility] Start: 01-30-2024 End: 01-30-2024 ambulatory ELIAZAR Raf CECILIA Not Available Start: 01-29-2024 End: 01-29-2024 Orders Only Fred Gracia [employer] Work Phone: [facility] Comment on above: Multiple sclerosis ( CMS/HCC) (Primary Dx) Start: 01-23-2024 End: 01-23-2024 Clinisync Result Encounter Fred Gracia [employer] Work Phone: [facility] Unsolicited Start: 01-23-2024 End: 01-23-2024 Clinisync Result Encounter Fred Basil [employer]ER Work Phone: [facility] Unsolicited Start: 01-23-2024 End: 01-23-2024 ambulatory SHERRIE BOONE Not Available Start: 01-14-2024 End: 01-17-2024 Telephone encounter Jessica Clarke PA-C Work Phone: [facility] Comment on above: Orders Start: 01-06-2024 End: 01-06-2024 ambulatory FRED AICReyHOLZ Not Available Start: 12-24-2023 End: 01-10-2024 Pre-admission assessment Eliazar Brooks [facility] Start: 12-24-2023 End: 12-24-2023 ambulatory ELIAZAR BROOKS Not Available Start: 12-19-2023 Telephone encounter Nurse [facility] Work Phone: Infusion Start: 12-02-2023 End: 12-02-2023 ambulatory FRED AICHHOLZ Not Available Start: 11-27-2023 Orders Only Jessica Saavedra A-C Work Phone: [facility] Comment on above: Multiple sclerosis ( HCC) (Primary Dx); Vitamin D deficiency Start: 11-26-2023 Orders Only Sarthak Escobar MD, PhD Work Phone: [facility] Start: 11-13-2023 End: 11-13-2023 ambulatory YAHAIRA D HILLS Not Available Start: 11-05-2023 End: 11-05-2023 ambulatory YAHAIRA D HILLS Not Available Start: 10-10-2023 End: 10-10-2023 ambulatory FRED TELLEZHOLZ Not Available Start: 10-07-2023 End: 10-07-2023 ambulatory YAHAIRA D HILLS Not Available Start: 09-06-2023 End: 09-06-2023 ambulatory Lashaun Christina PA-C Work Phone: [facility] Comment on above: Left arm weakness (P rimary Dx) Start: 09-06-2023 End: 09-06-2023 Telemedicine consultation with patient Lashaun Harris PA-C Work Phone: [facility] Start: 08-22-2023 ambulatory Jessica Saavedra A-C Work Phone: [facility] Comment on above: Spine Start: 08-22-2023 Chart abstracting None (Historical) Neurology Start: 08-21-2023 Telephone encounter Jessica mireles PA-C Work Phone: [facility] Comment on above: Patient Question Start: 08-08-2023 ambulatory ELIAZAR Saleh ty:[facility] Start: 07-15-2023 Telephone encounter Jessica imreles PA-C Work Phone: [facility] Comment on above: Orders (Order for MR I needed for Brain and Cervical) Start: 07-10-2023 End: 07-10-2023 ambulatory JESSICA CLARKE Facility:[facility] Start: 07-10-2023 End: 07-10-2023 Patient encounter procedure Paris E Paris DO Work Phone: Pain Management Comment on above: Cervical disc disord er with radiculopathy (Primary Dx); Cervical stenosis of spine; Chronic neck pain Start: 06-26-2023 ambulatory Paris E Girgi s DO Work Phone: Pain Management Comment on above: Pain Questionnaire Start: 06-26-2023 Lisseth Lunsford MD Work Phone: [facility] Start: 06-26-2023 Bamkriso flowsheet Shaikh Jonn BENITEZ Work Phone: [facility] Start: 06-26-2023 E-mail encounter fro m caregiver Paris E Paris DO Work Phone: [facility] Start: 06-26-2023 End: 06-26-2023 Office outpatient visit 25 minutes Shaikh Jonn BENITEZ Work Phone: [facility] Comment on above: Multiple sclerosis ( CMS/HCC) (Primary Dx); Primary hypertension (CMS/HCC); Anxiety and depression (CMS/HCC); COPD with exacerbation (CMS/HCC); Non-recurrent acute suppurative otitis media of left ear without spontaneous rupture of tympanic membrane Start: 05-22-2023 End: 05-22-2023 ambulatory SARTHAK ESCOBAR Facility:[facility] Start: 05-02-2023 End: 05-02-2023 ambulatory Jessica Vince PA-C Work Phone: [facility] Comment on above: Multiple sclerosis ( HCC) (Primary Dx) Start: 05-02-2023 End: 05-02-2023 Telemedicine consultation with patient Jessica Clarke PA-C Work Phone: [facility] Start: 04-22-2023 ambulatory Jessica Young P A-C Work Phone: [facility] Comment on above: Skull Start: 04-19-2023 ambulatory Jessica Young P A-C Work Phone: [facility] Comment on above: Skull Start: 10-17-2022 ambulatory Valdez Sousa Work Phone: Internal Medicine [facility] [place] Start: 10-01-2022 End: 10-01-2022 ambulatory RUBINA GRACIA Facility:[facility] Start: 10-01-2022 ambulatory RUBINA GRACIA Facil ity:[facility] Start: 09-21-2022 End: 09-21-2022 ambulatory YAHAIRA MCKEON . Facility:[facility] Start: 08-30-2022 Orders Only Jessica Almodovar Work Phone: [facility] Comment on above: Multiple sclerosis, relapsing-remitting (HCC) (Primary Dx) Start: 06-05-2022 End: 06-06-[address] DOCTOR BULL Facility:[facility] Start: 04-18-2022 End: 04-18-2022 ambulatory Liyah Rosa Other [employer] Other Start: 04-18-2022 Office outpatient vi sit 15 minutes Liyah Rosa [facility] Gastroenterology Start: 03-30-2022 Telephone encounter Valdez aleman MD Work Phone: [address] [place] [address] Comment on above: Patient Update Start: 03-22-2022 End: 03-22-2022 Patient encounter procedure Jessica Clarke PA-C Work Phone: [facility] Comment on above: Multiple sclerosis, relapsing-remitting (HCC) (Primary Dx) Start: 03-22-2022 End: 03-22-2022 ambulatory Infusion [facility] 10 Work Phone: Multiple Sclerosis Comment on above: Multiple sclerosis ( HCC) (Primary Dx) Start: 03-16-2022 Orders Only Sarthak Escobar MD, PhD Work Phone: [facility] Start: 03-07-2022 End: 03-07-2022 ambulatory RUBINA GRACIA Facility:[facility] Start: 03-06-2022 ambulatory Valdez Sousa Work Phone: [facility] Start: 02-12-2022 Telephone encounter Jessica mireles PA-C Work Phone: Neurology Comment on above: Appointment (Called pt LVM to see about setting up pt and psycology.) Start: 01-16-2022 End: 01-16-2022 ambulatory Jojo Pickard OTR/L Work Phone: [facility] Occupational Therapy Comment on above: Multiple sclerosis, relapsing-remitting (HCC) Start: 12-13-2021 End: 12-13-2021 ambulatory Liyah Rosa Other [employer] Other Start: 12-13-2021 Office outpatient vi sit 15 minutes Liyah Rosa [facility] Gastroenterology Start: 11-15-2021 ambulatory Valdez Sousa Work Phone: Internal Medicine [facility] [place] Start: 11-14-2021 End: 11-14-2021 Patient encounter procedure Jessica Clarke PA-C Work Phone: [facility] Comment on above: Multiple sclerosis, relapsing-remitting [...] 09-15-2021 ambulatory Jessica Clarke PA-C Work Phone: [facility] Comment on above: Multiple sclerosis, relapsing-remitting (HCC) Start: 09-15-2021 End: 09-15-2021 Telemedicine consultation with patient Jessica Clarke PA-C Work Phone: [facility] Start: 09-14-2021 End: 09-14-2021 ambulatory Liyah Rosa Other [employer] Other Start: 09-14-2021 Telephone encounter Liyah Carlisle ck [employer] Start: 09-05-2021 End: 09-05-2021 Admission to same day surgery center Services [facility] Work Phone: [facility] Start: 09-01-2021 End: 09-01-2021 Patient encounter procedure Services [facility] Work Phone: [facility] Start: 08-14-2021 End: 08-14-2021 ambulatory Liyah Rosa Other [employer] Other Start: 08-14-2021 Office outpatient ne w 45 minutes Liyah Rosa [facility] Start: 07-28-2020 End: 07-28-2020 Patient encounter procedure Jzamin Shaikh Work Phone: [facility] Work Phone: Start: 12-20-2016 End: 12-21-2016 Ambulatory [facility] Facility:[facility] Start: 11-27-2012 Patient encounter status Jessica Clarke PA-C Work Phone: [facility] Procedures Date Procedure Procedure Detail Performing Clinician Start: 09-28-2024 Radiologic exam swal low function contrast study Jesi Lewis [employer]CH[employer]-REGENERATOR OPERATOR Work Phone: Start: 09-28-2024 Basic metabolic pane l calcium total Sandie IBANEZ Work Phone: Start: 09-27-2024 Basic metabolic pane l calcium total Sandie IBANEZ Work Phone: Start: 09-27-2024 Radiologic exam ches t single view Anjelica Venegas [employer]ARDER P[employer]CHER-REGENERATOR OPERATOR Work Phone: Start: 09-25-2024 Assay of magnesium Maureen Espinal MD Work Phone: Start: 09-25-2024 Basic metabolic pane l calcium total Sandie IBANEZ Work Phone: Start: 09-24-2024 Radiologic exam swal low function contrast study Chip Zarate YARDER PUNCHER-REGENERATOR OPERATOR Work Phone: Start: 09-24-2024 Comprehensive metabo lic panel Jair Espinal MD Work Phone: Start: 09-23-2024 Ct head/brain w/o co ntrast material Ibeth Rizzo Mary Grace PA-C Work Phone: Start: 09-23-2024 Radiologic exam abdo men 1 view Jair Espinal MD Work Phone: Start: 09-23-2024 BEDSIDE GLUCOSE Xena Larios MD Work Phone: Start: 09-23-2024 End: 09-23-2024 SYNAPTIVE CRANIOTOMY EXCISION TUMOR Jair Espinal MD Work Phone: Start: 09-23-2024 Radiologic exam ches t single view Anjelciapascual Venegas YARDER PUNCHER-REGENERATOR OPERATOR Work Phone: Start: 09-23-2024 Basic metabolic pane l calcium total Sandie IBANEZ Work Phone: Start: 09-23-2024 REPEATED ABORH Xena Larios MD Work Phone: Start: 09-22-2024 Antibody screen Julio merchant MD Work Phone: Start: 09-22-2024 Antibody screen FRED BISHOP Comment on above: Performed By: #### T NIH #### [facility] ([facility]) [address] [place] [address] VIR Start: 09-22-2024 Blood typing serologic abo Laura Gore YARDER PUNCHER-REGENERATOR OPERATOR Work Phone: Start: 09-22-2024 Electrolyte panel Miriam Church MD Work Phone: Start: 09-22-2024 REPEATED IQRA Gore YARDER P[employer]CHER-REGENERATOR OPERATOR Work Phone: Start: 09-22-2024 HC ECHO COMPLETE W CONTRAST Melo Gill PA-C Work Phone: Start: 09-22-2024 Electrolyte panel Miriam Church MD Work Phone: Start: 09-22-2024 Ecg routine ecg w/le ast 12 lds trcg only w/o i&r Anjelica Venegas YARDER PUNCHER-REGENERATOR OPERATOR Work Phone: Start: 09-22-2024 Basic metabolic pane l calcium total Sandie IBANEZ Work Phone: Start: 09-22-2024 Drug screen quantita tive vancomycin Anjelica Venegas [facility]-[facility] Work Phone: Start: 09-21-2024 Electrolyte panel Miriam Church MD Work Phone: Start: 09-21-2024 Protein electrophore tic fractj&quantj serum Miriam Church MD Work Phone: Start: 09-21-2024 Drug screen quantita tive vancomycin Michelle Petrisor Avasilcai [employer]ER P[employer]CHER-[facility] Work Phone: Start: 09-21-2024 Electrolyte panel Miriam Church MD Work Phone: Start: 09-21-2024 Basic metabolic pane l calcium total Sandie IBANEZ Work Phone: Start: 09-20-2024 Drug screen quantita tive vancomycin Michelle Petrisor Avasilcai [employer] P[employer]CHER-[facility] Work Phone: Start: 09-20-2024 Electrolyte panel Miriam Church MD Work Phone: Start: 09-20-2024 Radiologic exam abdo men 1 view Steffanie Lozano [employer] P[employer]CHER-[facility] Work Phone: Start: 09-20-2024 Ct abdomen & pelvis w/o contrast material Hiram Jones MD Work Phone: Start: 09-20-2024 Electrolyte panel Miriam Church MD Work Phone: Start: 09-20-2024 End: 09-20-2024 Culture bacterial blood aerobic w/id isolates Steffanie Lozano YARDER P[employer]CHER-REGENERATOR OPERATOR Work Phone: Start: 09-20-2024 Basic metabolic pane l calcium total Sandie IBANEZ Work Phone: Start: 09-20-2024 Mri brain brain stem w/o w/contrast material Chip Zarate YARDER PUNCHER-REGENERATOR OPERATOR Work Phone: Start: 09-19-2024 Electrolyte panel Miriam Chucrh MD Work Phone: Start: 09-19-2024 Electrolyte panel Miriam Church MD Work Phone: Start: 09-19-2024 Us retroperitoneal r eal time w/image complete Miriam Church MD Work Phone: Start: 09-19-2024 Antinuclear antibodies magi Miriam Church MD Work Phone: Start: 09-19-2024 End: 09-19-2024 Electrolyte panel Sandie IBANEZ Work Phone: Start: 09-19-2024 BEDSIDE GLUCOSE Sheila Jung MD Work Phone: Start: 09-19-2024 Blood gases any comb ination ph pco2 po2 co2 hco3 Lewis Botello DO Work Phone: Start: 09-19-2024 Urnls dip stick/tabl et rgnt auto w/o microscopy Lewis Botello DO Work Phone: Start: 09-19-2024 ER EXTRA URINE Endrit Verena Ontiveros MD Work Phone: Start: 09-19-2024 TROP I, HIGH SENSITI VITY 1 HOUR Endriraf Ontiveros MD Work Phone: Start: 09-19-2024 Urinalysis Miriam joe MD Work Phone: Start: 09-19-2024 Ecg routine ecg w/le ast 12 lds trcg only w/o i&r Endriraf Ontiveros MD Work Phone: Start: 09-19-2024 End: 09-19-2024 Comprehensive metabolic panel Endrit Verena Ontiveros MD Work Phone: Start: 09-19-2024 End: 09-19-2024 Culture bacterial blood aerobic w/id isolates Endrit Verena Ontiveros MD Work Phone: Start: 09-18-2024 ALL CBC WITH AUTO DIFF Sary Colin MD Work Phone: Start: 08-23-2024 BLOOD CULTURE 2 Generic External Data Provider Start: 08-23-2024 BLOOD CULTURE 1 Generic External Data Provider Start: 08-22-2024 URINE CULTURE - [facility] n[facility] External Data Provider Start: 06-30-2024 MM TOMOSYNTHESIS SCR EENING BI Fred Gracia [employer] Work Phone: Start: 06-30-2024 Mammography Fred rivera [employer] Work Phone: Start: 04-27-2024 Arthrocentesis aspir &/inj major jt/bursa w/us Yahaira IBANEZ Work Phone: Start: 02-25-2024 Radex shoulder compl ete minimum 2 views Eliazar Brooks DO Work Phone: Start: 02-10-2024 Arthroscopy of shoulder Eliazar Brooks Start: 01-23-2024 TBH UA (CLEAN/CATCH) MICROSCOPIC IF INDICATE Fred Gracia [employer] Work Phone: Start: 03-07-2022 Microscopic observat ion [...] Diagnostic endoscopi c examination on colon Services [facility] Work Phone: Start: 09-01-2021 SARS Antigen (LFIA) Ser vices [facility] Work Phone: Start: 07-28-2020 Imm. administration COVID19 [employer] Work Phone: Start: 07-28-2020 SARS-CoV-2 vaccine, 0.5ml [employer] Work Phone: Start: 09-17-2012 Mammography Shaikh Ilan gimenez MD Work Phone: Ectopic (disorder) Eliazar Brooks Entire carpal canal (body structure) Eliazar Brooks Plan of Treatment Date Care Activity Detail Author Start: 09-22-2027 Screening for malignant neoplasm of colon [facility] Start: 10-02-2026 DTaP,Tdap and Td Vaccines (2 - Td or Tdap) DTaP,Tdap and Td Vaccines (2 - Td or Tdap) [facility] Start: 10-02-2026 Urine microalbumin profile [facility] Start: 09-18-2026 Lipid 1996 panel - Serum or Plasma Lipid Screening [facility] Start: 09-18-2026 Lipid panel Lipid Screening [facility] Start: 09-18-2026 LIPID SCREEN LIPID SCREEN [facility] Start: 05-22-2026 Diabetes Screening Diabetes Screening [facility] Start: 11-08-2025 LIPID SCREEN LIPID SCREEN [facility] Start: 09-28-2025 Adult BMI Screening Adult BMI Screening [facility] Start: 09-23-2025 Tobacco Screening Tobacco Screening [facility] Start: 09-16-2025 Tobacco Screening Tobacco Screening [facility] Start: 09-01-2025 Adult BMI Screening Adult BMI Screening [facility] Start: 06-30-2025 Screening for malignant neoplasm of breast Mammogram [facility] Start: 05-18-2025 Medicare Annual Wellness (AWV) Medicare Annual Wellness (AWV) [facility] Start: 03-07-2025 Screening for malignant neoplasm of cervix [facility] Start: 01-18-2025 Influenza vaccination Influenza Vaccine [facility] Start: 11-10-2024 End: 11-10-2024 ambulatory [facility] Start: 11-10-2024 End: 11-10-2024 Patient encounter procedure 11/10/2024 1:10 PM EDT Office Visit [facility] [address] [place] [phone] Jair Espinal MD [address] [place] [address] [address] [place] [address] [facility] Start: 10-02-2024 End: 09-28-2025 Void Trial [facility] Work Phone: Start: 09-30-2024 End: 09-30-2024 Patient encounter procedure 09/30/2024 8:40 AM EDT Office Visit [facility] [address] [place] [address] Fred Gracia NP [address] [place] [address] [facility] Start: 09-18-2024 DIABETES SCREEN DIABETES SCREEN [facility] Start: 09-18-2024 Diabetes Screening Diabetes Screening [facility] Start: 09-07-2024 End: 09-07-2024 Patient encounter procedure 09/07/2024 8:00 AM EDT Office Visit [facility] [address] [place] [address] Nasra oHrta, [employer]ER [address], [address] [place] [address] [facility] Start: 08-31-2024 End: 08-31-2024 Patient encounter procedure 08/31/2024 10:30 AM EDT Office Visit [facility] [address] [place] [phone] Fred Gracia, KIRK [address] [place] [phone] [facility] Start: 08-22-2024 Urine culture [facility] Start: 08-22-2024 Bacteria identified in Urine by Culture Urine Culture [facility] Start: 08-18-2024 End: 08-18-2024 Patient encounter procedure [facility] Comment on above: Morbid (severe) obesity due to excess ca lories (CMS/HCC) (Primary Dx); Generalized anxiety disorder with panic attacks (CMS/HCC); Major depressive disorder, recurrent, moderate (CMS/HCC) Start: 07-13-2024 End: 07-13-2024 Patient encounter procedure 07/13/2024 9:40 AM EST Office Visit [facility] [address] [facility] [address] [place] [address] Nasra Horta, [employer]E TR[employer]ER [address], [facility] [address] [place] [phone] [facility] Start: 07-07-2024 End: 07-07-2024 Patient encounter procedure 07/07/2024 10:00 AM EST Office Visit [facility] [address] [place] [phone] Fred Gracia, KIRK [address] [place] [phone] Generalized anxiety disorder with panic attacks (CMS/HCC) (Primary Dx); Multiple sclerosis (CMS/HCC); Major depressive disorder, recurrent, moderate (CMS/HCC); Morbid (severe) obesity due to excess calories (CMS/HCC); Body mass index (BMI) 45.0-49.9, adult (CMS/HCC) [facility] Comment on above: Generalized anxiety disorder with panic attacks (CMS/HCC) (Primary Dx); Multiple sclerosis (CMS/HCC); Major depressive disorder, recurrent, moderate (CMS/HCC); Morbid (severe) obesity due to excess calories (CMS/HCC); Body mass index (BMI) 45.0-49.9, adult (CMS/HCC) Start: 07-01-2024 End: 07-01-2024 Patient encounter procedure 07/01/2024 10:00 AM EST Office Visit [facility] [address] [place] [address] Fred Gracia NP [address] [place] [phone] [facility] Start: 06-25-2024 End: 06-25-2024 Patient encounter procedure 06/25/2024 8:40 AM EST Office Visit [facility] [address] [place] [address] Fred Gracia, KIRK [address] [place] [phone] [facility] Start: 06-17-2024 End: 06-17-2024 Patient encounter procedure 06/17/2024 9:30 AM EST Office Visit [facility] [address] [place] [address] Sherrie Boone NP [address] [place] [address] [facility] Comment on above: Arrived Start: 06-08-2024 End: 06-08-2024 Patient encounter procedure 06/08/2024 9:45 AM EST Office Visit [facility] [address] [place] [phone] Yahaira Vazquez PA [address] [facility] [place] [address] [facility] Start: 05-18-2024 End: 07-17-2025 MG Breast - bilateral Screening Bilateral screening mammogram Imaging Routine Encounter for screening mammogram for malignant neoplasm of breast Expected: 05/18/2024 (Approximate), Expires: 07/17/2025 [facility] Work Phone: Comment on above: Expected: 05/18/2024 (Approximate), Expi res: 07/17/2025 Start: 05-18-2024 End: 05-18-2024 Patient encounter procedure [facility] Comment on above: LORENZO (obstructive sleep apnea) (Primary D x); Multiple sclerosis (CMS/HCC); Primary insomnia; Class 3 [...] [facility] [address] [facility] [address] [place] [address] Nasra Horta, [employer] [address], [facility] [address] [place] [phone] [facility] Start: 05-05-2024 End: 05-05-2024 Patient encounter procedure 05/05/2024 9:40 AM EST Office Visit [facility] [address] [place] [phone] Fred Gracia NP [address] [place] [id number] [facility] Start: 04-30-2024 Medicare Annual Wellness (AWV) Medicare Annual Wellness (AWV) [facility] Start: 04-29-2024 End: 04-29-2024 Patient encounter procedure 04/29/2024 9:40 AM EST Office Visit [facility] [address] [facility] [address] [place] [address] Nasra Horta, CONE TRUCKER [address], [facility] [address] [place] [address] [facility] Start: 04-27-2024 End: 04-27-2024 Patient encounter procedure [facility] Start: 04-10-2024 End: 04-10-2024 ambulatory 04/10/2024 8:30 AM EST Treatment [facility] [address] [facility] [address] [place] [address] Inderjit Pelletier, DIGITAL ANALYTICS MANAGER [facility] Start: 04-07-2024 End: 04-07-2024 ambulatory 04/07/2024 9:00 AM EST Treatment [facility] [address] [facility] [address] [place] [address] Aria Kumar, PT [facility] Start: 04-02-2024 End: 04-02-2024 ambulatory 04/02/2024 8:30 AM EST Treatment [facility] [address] [facility] [address] [place] [address] Aria Kumar, PT [facility] Start: 03-17-2024 End: 03-17-2024 ambulatory 03/17/2024 9:00 AM EDT Treatment [facility] [address] [facility] [address] [place] [address] Aria Kumar, PT [facility] Start: 03-13-2024 End: 03-13-2024 ambulatory [facility] Comment on above: Arrived Start: 03-10-2024 End: 03-10-2024 ambulatory 03/10/2024 9:30 AM EDT Treatment [facility] PT [address] [facility] [address] [place] [address] Keli Major, DIGITAL ANALYTICS MANAGER [facility] Start: 03-06-2024 End: 03-06-2024 ambulatory 03/06/2024 8:30 AM EDT Treatment [facility] [address] [facility] [place] [address] Liyah Inderjit, DIGITAL ANALYTICS MANAGER [facility] Start: 03-05-2024 End: 03-05-2024 Patient encounter procedure [facility] Comment on above: Arrived Start: 03-03-2024 End: 03-03-2024 ambulatory [facility] Comment on above: Arrived Start: 02-28-2024 End: 02-28-2024 ambulatory [facility] Comment on above: S/P arthroscopy of left shoulder Start: 02-25-2024 End: 02-25-2024 Patient encounter procedure 02/25/2024 2:30 PM EDT Office Visit [facility] [address] [facility] [address] Eliazar Brooks, DO [address] [place] [address] [facility] Start: 02-25-2024 End: 02-25-2024 Patient encounter procedure 02/25/2024 8:15 AM EDT Office Visit [facility] [address] [facility] [address] Eliazar Brooks, DO [address] [place] [address] [facility] Start: 02-10-2024 End: 02-10-2024 Patient encounter procedure [facility] EXT DEP Start: 02-03-2024 End: 02-03-2024 Patient encounter procedure [facility] Comment on above: Arrived Start: 01-31-2024 End: 01-29-2025 Urinalysis complete panel - Urine Urinalysis with reflex microscopic Lab Routine Pre-op testing Expected: 01/31/2024, Expires: 01/29/2025 [facility] Work Phone: Comment on above: Expected: 01/31/2024, Expires: Start: 01-30-2024 End: 01-30-2024 Patient encounter procedure [facility] Comment on above: Rotator cuff impingement syndrome of lef t shoulder (Primary Dx) Start: 01-23-2024 End: 01-23-2024 Patient encounter procedure 01/23/2024 12:00 PM EDT Procedure Visit [facility] [address] [place] [address] [facility] Start: 01-19-2024 Covid-19 Vaccine ( season) Covid-19 Vaccine ( season) [facility] Start: 01-19-2024 Influenza vaccination Influenza Vaccine (#1) [facility] Start: 12-10-2023 End: 12-10-2023 Patient encounter procedure 12/10/2023 10:30 AM EDT Office Visit [facility] [address] [address] Jessica Clarke PA-C [address] [place] [address] follow up [facility] Comment on above: follow up Start: 11-27-2023 End: 02-26-2024 25-hydroxyvitamin D3 [Mass/volume] in Serum or Plasma VITAMIN D 25 HYDROXY Lab Routine Vitamin D deficiency Expected: 11/27/2023, Expires: 02/26/2024 [facility] Comment on above: Expected: 11/27/2023, Expires: Start: 11-27-2023 End: 02-26-2024 CBC W Auto Differential panel - Blood COMPLETE BLOOD COUNT AND DIFFERENTIAL Lab Routine Multiple sclerosis (HCC) Expected: 11/27/2023, Expires: 02/26/2024 [facility] Work Phone: Comment on above: Expected: 11/27/2023, Expires: 4 Start: 11-27-2023 End: 02-26-2024 Comprehensive metabolic 2000 panel - Serum or Plasma COMPREHENSIVE METABOLIC PANEL Lab Routine Multiple sclerosis ([facility]) Expected: 11/27/2023, Expires: 02/26/2024 [facility] Comment on above: Expected: 11/27/2023, Expires: 4 Start: 11-27-2023 End: 02-26-2024 IgG [Mass/volume] in Serum or Plasma IMMUNOGLOBULIN G Lab Routine Multiple sclerosis ([facility]) Expected: 11/27/2023, Expires: 02/26/2024 [facility] Comment on above: Expected: 11/27/2023, Expires: Start: 11-27-2023 End: 02-26-2024 IgM [Mass/volume] in Serum or Plasma IMMUNOGLOBULIN M Lab Routine Multiple sclerosis ([facility]) Expected: 11/27/2023, Expires: 02/26/2024 [facility] Comment on above: Expected: 11/27/2023, Expires: Start: 11-27-2023 End: 11-27-2023 Patient encounter procedure 11/27/2023 12:00 PM EDT Appointment Radiology [address] [id number] Cervical Spine MRI Radiology Comment on above: Cervical Spine MRI Start: 11-09-2023 DIABETES SCREEN DIABETES SCREEN [facility] Start: 09-05-2023 End: 09-05-2023 Patient encounter procedure 09/05/2023 8:40 AM EDT Office Visit [facility] [address] [place] [address] Fred Gracia NP [address] [place] [address] [facility] Start: 07-25-2023 End: 06-26-2024 Pulmonary function testing Pulmonary function testing Imaging Routine COPD with exacerbation ([facility]) Expected: 07/25/2023, Expires: 06/26/2024 [facility] Work Phone: Comment on above: Expected: 07/25/2023, Expires: Start: 06-26-2023 End: 06-26-2024 XR Chest 2 Views XR chest 2 views Imaging Routine COPD with exacerbation (CMS/HCC) Expected: 06/26/2023, Expires: 06/26/2024 [facility] Comment on above: Expected: 06/26/2023, Expires: 5 Start: 06-26-2023 End: 06-26-2023 Patient encounter procedure 06/26/2023 11:30 AM EST Office Visit [facility] [address] [place] [address] Shaikh Lunsford MD [address] [place] [id number] Arrived [facility] Comment on above: Arrived Start: 05-20-2023 Behavioral Health Screening Behavioral Health Screening [facility] Start: 05-20-2023 Depression Assessment Depression Assessment [facility] Start: 01-18-2023 Covid-19 Vaccine ( season) Covid-19 Vaccine ( season) [facility] Start: 01-18-2023 Influenza vaccination [facility] Start: 09-15-2022 Adult depression screening assessment DEPRESSION SCREENING [facility] Start: 08-30-2022 End: 10-30-2022 CBC W Auto Differential panel - Blood CBC + DIFF Lab Routine Multiple sclerosis, relapsing-remitting (HCC) Expected: 08/30/2022, Expires: 10/30/2022 [facility] Work Phone: Comment on above: Expected: 08/30/2022, Expires: 3 Start: 08-30-2022 End: 10-30-2022 Comprehensive metabolic 2000 panel - Serum or Plasma COMP METABOLIC PANEL Lab Routine Multiple sclerosis, relapsing-remitting (HCC) Expected: 08/30/2022, Expires: 10/30/2022 [facility] Work Phone: Comment on above: Expected: 08/30/2022, Expires: 3 Start: 08-30-2022 End: 10-30-2022 IgG [Mass/volume] in Serum or Plasma IGG Lab Routine Multiple sclerosis, relapsing-remitting (HCC) Expected: 08/30/2022, Expires: 10/30/2022 [facility] Work Phone: Comment on above: Expected: 08/30/2022, Expires: 3 Start: 08-30-2022 End: 10-30-2022 IgM [Mass/volume] in Serum or Plasma IGM Lab Routine Multiple sclerosis, relapsing-remitting (HCC) Expected: 08/30/2022, Expires: 10/30/2022 [facility] Work Phone: Comment on above: Expected: 08/30/2022, Expires: 3 Start: 05-20-2022 DEPRESSION ASSESSMENT DEPRESSION ASSESSMENT [facility] Start: 03-22-2022 End: 05-22-2022 CBC W Auto Differential panel - Blood CBC + DIFF Lab Routine Multiple sclerosis, relapsing-remitting (HCC) Expected: 03/22/2022, Expires: 05/22/2022 [facility] Work Phone: Comment on above: Expected: 03/22/2022, Expires: 3 Start: 03-22-2022 End: 05-22-2022 CD19 ABSOLUTE COUNT CD19 ABSOLUTE COUNT Lab Routine Multiple sclerosis (HCC) Expected: 03/22/2022, Expires: 05/22/2022 [facility] Work Phone: Comment on above: Expected: 03/22/2022, Expires: 3 Start: 03-22-2022 End: 05-22-2022 Comprehensive metabolic 2000 panel - Serum or Plasma COMP METABOLIC PANEL Lab Routine Multiple sclerosis, relapsing-remitting (HCC) Expected: 03/22/2022, Expires: 05/22/2022 [facility] Work Phone: Comment on above: Expected: 03/22/2022, Expires: 3 Start: 03-22-2022 End: 05-22-2022 IgG [Mass/volume] in Serum or Plasma IGG Lab Routine Multiple sclerosis, relapsing-remitting (HCC) Expected: 03/22/2022, Expires: 05/22/2022 [facility] Work Phone: Comment on above: Expected: 03/22/2022, Expires: 3 Start: 03-22-2022 End: 05-22-2022 IgM [Mass/volume] in Serum or Plasma IGM Lab Routine Multiple sclerosis, relapsing-remitting (HCC) Expected: 03/22/2022, Expires: 05/22/2022 [facility] Work Phone: Comment on above: Expected: 03/22/2022, Expires: 3 Start: 01-18-2022 Influenza vaccination [facility] Start: 11-14-2021 End: 01-14-2022 JCV ANTIBODY & INDEX WITH REFLEX [facility] Work Phone: Comment on above: Expected: 11/14/2021, Expires: 2 Start: 09-18-2021 End: 11-18-2021 CD19 ABSOLUTE COUNT [facility] Work Phone: Comment on above: Expected: 09/18/2021, Expires: 2 Start: 09-16-2021 COVID-19 VACCINE (3 - Booster for Yeni series) COVID-19 VACCINE (3 - Booster for Yeni series) [facility] Start: 09-15-2021 End: 11-15-2021 CBC W Auto Differential panel - Blood CBC + DIFF Lab Routine Multiple sclerosis, relapsing-remitting (HCC) Expected: 09/15/2021, Expires: 11/15/2021 [facility] Work Phone: Comment on above: Expected: 09/15/2021, Expires: 2 Start: 09-15-2021 End: 11-15-2021 Comprehensive metabolic 2000 panel - Serum or Plasma COMP METABOLIC PANEL Lab Routine Multiple sclerosis, relapsing-remitting (HCC) Expected: 09/15/2021, Expires: 11/15/2021 [facility] Work Phone: Comment on above: Expected: 09/15/2021, Expires: 2 Start: 09-15-2021 End: 11-15-2021 IMMUNOGLOBULINS KESHAWN IMMUNOGLOBULINS KESHAWN Lab Routine Multiple sclerosis, relapsing-remitting (HCC) Expected: 09/15/2021, Expires: 11/15/2021 [facility] Work Phone: Comment on above: Expected: 09/15/2021, Expires: 2 Start: 09-15-2021 End: 11-15-2021 LIPID PANEL BASIC LIPID PANEL BASIC Lab Routine Multiple sclerosis, relapsing-remitting (HCC) Expected: 09/15/2021, Expires: 11/15/2021 [facility] Work Phone: Comment on above: Expected: 09/15/2021, Expires: 2 Start: 07-13-2021 COVID-19 VACCINE (3 - Booster for Yeni series) COVID-19 VACCINE (3 - Booster for Yeni series) [facility] Start: 05-20-2021 DEPRESSION ASSESSMENT DEPRESSION ASSESSMENT [facility] Start: 2018 Administration of varicella zoster vaccine Zoster (Shingles) [facility] 2[facility] Start: 2018 Influenza vaccination LUNG CANCER SCREENING [facility] Start: 2018 Pneumococcal Vaccine: 50+ (2 of 2 - PCV) Pneumococcal Vaccine: 50+ (2 of 2 - PCV) [facility] Start: 2018 Screening for malignant neoplasm of lung Lung Cancer Screening [facility] Start: 2018 SHINGRIX VACCINE (1 of 2) SHINGRIX VACCINE (1 of 2) [facility] Start: 09-17-2013 Screening for malignant neoplasm of breast Mammogram [facility] Start: 2013 COLOGUARD (FIT-DNA) COLOGUARD (FIT-DNA) [facility] Start: 2013 Colonoscopy COLONOSCOPY [facility] Start: 2013 COLORECTAL CANCER SCREENING COLORECTAL CANCER SCREENING [facility] Start: [address] COLONOGRAPHY [facility] Start: 2013 FECAL OCCULT BLOOD FECAL OCCULT BLOOD [facility] Start: 2013 Screening for malignant neoplasm of colon [facility] Start: 2013 SIGMOIDOSCOPY SIGMOIDOSCOPY [facility] Start: 2008 Mammography [facility] Start: 2008 Screening for malignant neoplasm of breast Mammogram Screening [facility] Start: 1998 HPV TESTING HPV TESTING [facility] Start: 1998 Screening for malignant neoplasm of cervix [facility] Start: 1989 PAP TESTING PAP TESTING [facility] Start: 1989 Screening for malignant neoplasm of cervix [facility] Start: 1987 Hepatitis B Vaccine (1 of 3 - 19+ 3-dose series) Hepatitis B Vaccine (1 of 3 - 19+ 3-dose series) [facility] Start: 1986 Adult BMI Follow Up Plan Adult BMI Follow Up Plan [facility] Start: 1986 Anxiety Screening Anxiety Screening [facility] Start: 1986 Depression Screening Depression Screening [facility] Start: 1986 HIV SCREENING HIV SCREENING [facility] Start: 1986 HIV screening HIV Screening [facility] Start: 1980 Depression Screening Depression Screening [facility] Start: 1968 HEPATITIS B (1 of 3 - 3-dose series) HEPATITIS B (1 of 3 - 3-dose series) [facility] Start: 1968 Hepatitis B Vaccine (1 of 3 - 3-dose series) Hepatitis B Vaccine (1 of 3 - 3-dose series) [facility] Start: 1968 Screening for malignant neoplasm of colon [facility] Start: 1968 Tobacco Counseling Tobacco Counseling [facility] Basic metabolic 2000 panel - Serum or Plasma [facility] BLOOD CULTURE 1 BLOOD CULTURE 1 Lab Routine 08/23/2024 5:46 AM EDT [facility] BLOOD CULTURE 2 BLOOD CULTURE 2 Lab Routine 08/23/2024 5:52 AM EDT [facility] CBC W Auto Different ial panel - Blood [facility] End: 09-05-2024 EMG(NEURO/NI) EMG(NEURO/NI) EMG Routine Left arm weakness 1 Occurrences starting 09/06/2023 until 09/05/2024 [facility] Work Phone: Comment on above: 1 Occurrences starting 09/06/2023 until 09/05/2024 IMMUNOGLOBULINS KESHAWN IMMUNOGLOBUL INS KESHAWN Lab Routine Multiple sclerosis, relapsing-remitting (HCC) 09/18/2021 8:36 AM EDT [facility] Work Phone: Ionized calcium [facility] Work Phone: Magnesium [Mass/volu me] in Serum or Plasma [facility] End: 11-16-2023 ALIAY SCREENING ALIYA SCREENING Radiology Routine Encounter for screening mammogram for breast cancer 1 Occurrences starting 10/17/2022 until 11/16/2023 [facility] Work Phone: Comment on above: 1 Occurrences starting 10/17/2022 until 11/16/2023 End: 08-14-2024 MR Brain WO and W contrast IV MRI BRAIN WO/W IVCON Radiology Routine Multiple sclerosis (HCC) 1 Occurrences starting 07/16/2023 until 08/14/2024 [facility] Work Phone: Comment on above: 1 Occurrences starting 07/16/2023 until 08/14/2024 End: 10-05-2024 MR Cervical spine WO contrast MRI CERVICAL SPINE WO IVCON Radiology Routine Left arm weakness 1 Occurrences starting 09/06/2023 until 10/05/2024 [facility] Work Phone: Comment on above: 1 Occurrences starting 09/06/2023 until 10/05/2024 End: 10-15-2022 Mri brain brain stem w/o w/contrast material MRI BRAIN WO/W IVCON Radiology Routine Multiple sclerosis, relapsing-remitting (HCC) 1 Occurrences starting 09/15/2021 until 10/15/2022 [facility] Work Phone: Comment on above: 1 Occurrences starting 09/15/2021 until 10/15/2022 End: 12-14-2022 Mri brain brain stem w/o w/contrast material MRI BRAIN WO/W IVCON Radiology Routine Multiple sclerosis, relapsing-remitting (HCC) 1 Occurrences starting 11/14/2021 until 12/14/2022 [facility] Work Phone: Comment on above: 1 Occurrences starting 11/14/2021 until 12/14/2022 End: 09-29-2023 Mri brain brain stem w/o w/contrast material MRI BRAIN WO/W IVCON Radiology Routine Multiple sclerosis, relapsing-remitting (HCC) 1 Occurrences starting 08/30/2022 until 09/29/2023 [facility] Work Phone: Comment on above: 1 Occurrences starting 08/30/2022 until 09/29/2023 End: 09-29-2023 Mri spinal canal cervical w/o & w/contr matrl MRI CERVICAL SPINE WO/W IVCON Radiology Routine Multiple sclerosis, relapsing-remitting (HCC) 1 Occurrences starting 08/30/2022 until 09/29/2023 [facility] Work Phone: Comment on above: 1 Occurrences starting 08/30/2022 until 09/29/2023 OT PLAN OF CARE CERTIFICATION OT PLAN OF CARE CERTIFICATION Procedures Routine Multiple sclerosis, relapsing-remitting (HCC) Ordered: 01/16/2022 [facility] Work Phone: Comment on above: Ordered: 01/16/2022 Oxygen Therapy - Maintain SpO2: 90%; *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 for O2: Yes; Document: \[email or web address]\epi c\EPIC_Reference\Orders\ Respiratory Care Guidelines\CPG Oxygen 2022.pdf [email or web address] Work Phone: Patient Education Hemorrhoids (D C) Diverticulosis (DC) Colon Polypectomy (DC) [facility] Work Phone: Phosphate [Mass/volu me] in Serum or Plasma Imagry Platelets [#/volume] in Blood [facility] Work Phone: End: 12-15-2022 Screening mammography bi 2-view breast inc cad ALIYA SCREENING Radiology Routine Encounter for screening mammogram for breast cancer 1 Occurrences starting 11/15/2021 until 12/15/2022 [facility] Work Phone: Comment on above: 1 Occurrences starting 11/15/2021 until 12/15/2022 Surgical Pathology [facility] Work Phone: URINE CULTURE - [facility] URINE CULTU RE - [facility] Lab Routine 08/22/2024 10:45 PM EDT [facility] End: 10-05-2024 XR CERV OTHER 4V AP/LAT/FLX/EXT XR CERV OTHER 4V AP/LAT/FLX/EXT Radiology Routine Left arm weakness 1 Occurrences starting 09/06/2023 until 10/05/2024 [facility] Work Phone: Comment on above: 1 Occurrences starting 09/06/2023 until 10/05/2024 [facility] Immunizations Immunization Date Immunization Notes Care Provider [facility] 03-05-2024 influenza, injectabl e, madin eric canine kidney, preservative free Julio Fernandez MD Work Phone: [facility] 03-05-2024 Influenza, injectabl e, Madin [place] Canine Kidney, preservative free, quadrivalent Fred Gracia CONE TRUCKER Work Phone: [facility] 03-05-2024 unknown vaccine or immune globulin Julio Fernandez MD Work Phone: [facility] 03-05-2024 influenza virus vaccine, unspecified formulation Adonay Castillo [facility] Work Phone: [facility] 05-02-2023 influenza, intraderm al, quadrivalent, preservative free, injectable Shaikh Jonn BENITEZ Work Phone: [facility] 05-02-2023 influenza virus vaccine, unspecified formulation Sarthak Escobar MD, PhD Work Phone: [facility] 04-30-2023 influenza, seasonal, injectable Shaikh Jonn BENITEZ Work Phone: [facility] 05-29-2022 unknown vaccine or immune globulin Julio Fernandez MD Work Phone: [facility] 03-07-2022 influenza, high dose seasonal, preservative-free Shaikh Jonn BENITEZ Work Phone: [facility] 03-07-2022 influenza virus vaccine, unspecified formulation Jessica Young PA-C Work Phone: [facility] 05-18-2021 COVID-19 mRNA-1273 (Moderna) Services [facility] Work Phone: [facility] 05-18-2021 unknown vaccine or immune globulin Julio Fernandez MD Work Phone: [facility] 07-28-2020 unknown vaccine or immune globulin Julio Fernandez MD Work Phone: [facility] 07-28-2020 Ilia and Ilia COVID 19 Vaccine Jaleesa Lara [facility] Comment on above: Note: Patient tolera jonah well. No signs or symptoms of adverse reactions. Patient waited a minimum of 15 minutes. 04-08-2020 influenza, injectabl e, quadrivalent, preservative free Jessica Young PA-C Work Phone: [facility] 03-20-2019 influenza, injectabl e, quadrivalent, preservative free Jessica Young PA-C Work Phone: [facility] 06-05-2018 influenza, injectabl e, quadrivalent, preservative free Jessica Young PA-C Work Phone: [facility] 02-27-2017 influenza, injectabl e, quadrivalent, preservative free Jessica Young PA-C Work Phone: [facility] 10-02-2016 pneumococcal polysaccharide vaccine, 23 valent Jessica Young PA-C Work Phone: [facility] 10-02-2016 tetanus toxoid, redu maury diphtheria toxoid, and acellular pertussis vaccine, adsorbed Jessica Young PA-C Work Phone: [facility] 10-02-2016 unknown vaccine or immune globulin Julio Fernandez MD Work Phone: [facility] 04-03-2016 influenza, injectabl e, quadrivalent, preservative free Jessica Young PA-C Work Phone: [facility] 03-19-2015 influenza, high dose seasonal, preservative-free Jessica IBANEZ-C Work Phone: [facility] 03-19-2015 influenza, injectabl e, quadrivalent, preservative free Eliazar Brooks DO Work Phone: [facility] 04-27-2014 influenza, high dose seasonal, preservative-free Jessica IBANEZ-Leah Work Phone: [facility] 04-27-2014 influenza, injectabl e, quadrivalent, preservative free Eliazar Brooks DO Work Phone: [facility] Payers Date Payer Category Payer Self-pay [id number] 2024 Medicare [id number] 2023 Medicare (Managed Care) [id number]. [id number] 2023 Medicare [id number] 2022 Medicare [id number] 2020 Medicaid [facility] MEDICAID [employer] MEDICAID [id number] 2020-Present [phone] [address] [place] [address] Medicaid [id number] 2020 Medicaid [id number] 1968 Unknown [id number] 2.16.840.1.447123.3.579.2. 593 1968 Unknown [id number] 2.16.840.1.175676.3.579.2. 593 1968 Unknown [id number] 2.16.840.1.365781.3.579.2. 593 1968 Unknown [id number] 2.16.840.1.551577.3.579.2. 593 1968 Unknown [id number] 2.16.840.1.237594.3.579.2. 593 1968 Unknown [id number] 2.16.840.1.790404.3.579.2. 727 1968 Unknown [id number] 2.16.840.1.202302.3.579.2. 1258 1968 Unknown [id number] 2.16.840.1.277377.3.579.2. 1258 1968 Unknown [id number] 2.16.840.1.927669.3.579.2. 1258 1968 Unknown [id number] 2.16.840.1.289896.3.579.2. 1258 1968 Unknown [id number] 2.16.840.1.849323.3.579.2. 1258 1968 Unknown [id number] 2.16.840.1.909858.3.579.2. 1258 1968 Unknown [id number] 2.16.840.1.951099.3.579.2. 1258 1968 Unknown [id number] 2.16.840.1.729860.3.579.2. 1258 1970 Unknown [id number] 2.16.840.1.683308.3.579.2. 1258 1968 Unknown [id number] 2.16.840.1.541044.3.579.2. 1258 1968 Unknown [id number] 2.16.840.1.893969.3.579.2. 1258 1968 Unknown [id number] 2.16.840.1.670471.3.579.2. 1258 1968 Unknown [id number] 2.16.840.1.052181.3.579.2. 1258 1968 Unknown [id number] 2.16.840.1.615249.3.579.2. 1258 1968 Unknown [id number] 2.16.840.1.400165.3.579.2. 1258 1968 Unknown [id number] 2.16.840.1.195720.3.579.2. 1258 1968 Unknown [id number] 2.16.840.1.992676.3.579.2. 1258 1968 Unknown [id number] 2.16.840.1.305152.3.579.2. 1258 1968 Unknown [id number] 2.16.840.1.095718.3.579.2. 1258 1968 Unknown [id number] 2.16.840.1.741183.3.579.2. 1258 1968 Unknown [id number] 2.16.840.1.896375.3.579.2. 1258 1968 Unknown [id number] 2.16.840.1.399105.3.579.2. 1258 1968 Unknown [id number] 2.16.840.1.689159.3.579.2. 1258 1968 Unknown [id number] 2.16.840.1.415467.3.579.2. 1258 1968 Unknown [id number] 2.16.840.1.485912.3.579.2. 1258 1968 Unknown [id number] 2.16.840.1.810529.3.579.2. 1285 1968 Unknown [id number] 2.16.840.1.117111.3.579.2. 1285 1968 Unknown [id number] 2.16.840.1.388899.3.579.2. 1285 1968 Unknown [id number] 2.16.840.1.777880.3.579.2. 1286 1968 Unknown [id number] 2.16.840.1.147341.3.579.2. 732 1968 Unknown [id number] 2.16.840.1.508439.3.579.2. 1286 1968 Unknown [id number] 2.16.840.1.035182.3.579.2. 1286 1968 Unknown [id number] 2.16.840.1.461391.3.579.2. 727 1968 Unknown [id number] 2.16.840.1.250882.3.579.2. 727 1968 Unknown [id number] 2.16.840.1.303411.3.579.2. 727 1968 Unknown [id number] 2.16.840.1.119805.3.579.2. 7 1968 Unknown [id number] 2.16.840.1.679292.3.579.2. 727 1968 Unknown [id number] 2.16.840.1.477635.3.579.2. 1286 1959 Private Health Insurance [id number] 1959 Unknown [id number] Medicare [id number] Self-pay [id number] 2.16.840.1.697036.3.140.1. 69205.5.4 Unknown [id number] Unknown [id number] 2.16.840.1.635676.3.579.2. 531 Social History Date Type Detail Facility Tobacco smoking status Unknown if ever sm oked [facility] Work Phone: Start: 1970 Sex Assigned At Female [facility] Start: 09-05-2021 End: 11-13-2023 Tobacco smoking status NHIS Ex-smoker (finding) [facility] Start: 12-13-1996 End: 12-13-2016 History of tobacco use Current smoker [facility] Start: 12-13-1996 End: 12-13-2016 History of tobacco use Cigarette Smoker [facility] Start: 12-06-2017 End: 09-16-2024 Cigarettes smoked current (pack per day) - Reported 1 [facility] Start: 12-06-2017 End: 08-28-2024 Tobacco use and exposure Smokeless tobacco non-user [facility] Start: 11-01-2020 End: 07-10-2023 Alcohol intake Current drinker of alcohol (finding) [facility] Start: 08-02-2020 History SDOH Alcohol Frequency 2 [facility] Start: 08-02-2020 History SDOH Alcohol Std Drinks 3 [facility] Start: 08-08-2012 History SDOH Alcohol Comment rare [facility] Start: 08-02-2020 History SDOH Social Connections Get Together 1 [facility] Start: 08-02-2020 History SDOH Physica l Activity DPW 0 [facility] Start: 08-02-2020 History SDOH Stress 5 [facility] Start: 08-02-2020 History SDOH Financial 4 [facility] Start: 08-02-2020 Education 8 [facility] Start: 08-08-2012 End: 03-22-2022 Tobacco Comment plans to try to quit at some point but not ready. [facility] Start: 09-08-2021 End: 03-22-2022 Exposure to SARS-CoV-2 (event) Not sure [facility] Start: 08-02-2020 End: 09-16-2024 Sex Assigned At [facility] Do you belong to any clubs or organizations such as tenriism groups, unions, fraternal or athletic groups, or school groups? No [facility] Are you now , , , , never or living with a partner? [facility] How often to you hav e a drink containing alcohol? Monthly or less [facility] How many standard dr inks containing alcohol do you have on a typical day? 5 or 6 [facility] How often do you hav e 6 or more drinks on 1 occasion? Less than monthly [facility] How hard is it for y ou to pay for the very basics like food, housing, medical care, and heating Not very hard [facility] Start: 06-04-2023 Adult Depression Screening Assessment 5 [facility] Do you feel stress - tense, restless, nervous, or anxious, or unable to sleep at night because your mind is troubled all the time - these days [OSQ] Very much [facility] (I/We) worried wheth er (my/our) food would run out before (I/we) got money to buy more. Sometimes true [facility] Start: 08-02-2020 Gender identity Identifies as female gender (finding) [facility] Start: 08-02-2020 Sexual orientation Heterosexual (fin ever) [facility] Start: 06-05-2023 End: 08-31-2024 Alcohol intake Ex-drinker (finding) [facility] How many standard dr inks containing alcohol do you have on a typical day? 3 or 4 [facility] How hard is it for y ou to pay for the very basics like food, housing, medical care, and heating Very hard [facility] Do you feel stress - tense, [...] use Passive smoker [facility] Tobacco [facility] Comment on above: States smokes 1 PPD Tobacco smoking status No Smokin g Status Entered [facility] Start: 07-05-2015 End: 08-24-2024 Sex Female (finding) [facility] Start: 08-28-2024 Tobacco smoking stat NHIS Occasional tobacco smoker [facility] Start: 09-16-2024 End: 09-23-2024 Alcoholic beverage intake Lifetime non-drinker (finding) [facility] Start: 1970 Sex assigned at Not on file [facility] Procedure Code Equipment Code Equipment Origin al Text Equipment Identifier Dates SHOULDER ARTHROS COPY W/ POSSIBLE REPAIR Eliazar Brooks DO 02/10/24 Non Biological Shoulder L [id number] [facility] Start: 02-10-2024 [id number] Start: 09-23-2024 [id number] Start: 09-23-2024 [id number] Start: 09-23-2024 [id number] Start: 09-23-2024 Goals Date Patient Goal Desired Activity /State Personal health goal Comment on above: Formatting of this n ote might be different from the original. Evaluation of progress towards goal: SNF recommended, pt agreeable to SNF stating she is not able to care for self at home at this time Functional Status Date Assessment Result Facility [facility] [employer] [facility] Mental Status Date Assessment Result Facility [facility] Clinical Notes 08-14-2021 to 10-09-2024 Telephone Encounter - Anya Soni RN - 09/29/2024 10:27 AM EDTTelephone Encounter - Anya Soni RN - 09/29/2024 10:27 AM Lynne Moreno RN - 09/29/2024 12:17 AM EDTDischarge Instructions Note Date & Type Note Facility 10-09-2024 Note Urology Office/Clini c Note Chief Complaint referral, [place], urinary retention after brain surgery HPI Staff 54 yr old female here due to Urinary retention. Pt has Alexis. Denies any issues w alexis. No gross hematuria. No pain. No leaking around alexis. 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. Pt is her own medical decision maker. Review of Systems PHQ Score Initial Depression Screen Score: 0 SCORE no fever, chills, malaise, myalgia. no abdominal pain, nausea, vomiting. Physical Exam Vitals & Measurements T: 36.7 ???C(Oral) HR: 76(Peripheral) RR: 16 BP: 112/68 SpO2: 97% HT: 67 in HT: 169 cm WT: 257.941 lb WT: 117 kg BMI: 40.96 General: nontoxic, NAD. In wheelchair. Mouth: moist mucosa Lungs: normal respiratory effort Cardio: regular rate, good distal perfusion Abdomen: nondistended Assessment/Plan 1. Urinary retention (R33.9: Retention of urine, unspecified) Hx . Transferred from [facility] to [facility] on 09/18/24 d/t BRANDON, brain mass w shift and AMS. 1.5L retention upon admission w BRANDON (Creative Services Manager 15.68) bilat hydro on US, improved to 0.74 on 09/28/24. ECF attempted void trial on 10/02/24 but pt unable to void so Alexis replaced. She's currently working w PT to increase mobility. Does not recall ever having urinary retention before this episode. Denies issues voiding prior to admission. 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 Has not been reviewed w pt yet as she was dc'd prior. Pt/staff not sure when she has f/u w neuro. Instructed them to let us know. 4mm nonobs R renal stone suggested on US 09/19/24 but not definitively identified on CT 09/20/24. Denies hx kidney stones. -Maintain alexis. ECF to replace in 4 wks. -F/u 6 wks. If mobility improved, good po intake, normal BMs can consider another void trial at that time. Ordered: Body Mass Index (BMI) documented 3008F Current tobacco non-user 1036F Depression Screening Negative 3352F E&M of New Patient Moderate 45-59 Min 90571 Influenza immunization status assessed 1030F Medication list documented in medical record 1159F Most recent diastolic blood pressure <80 mm Hg 3078F Patient screen for fall risk: no falls in last year or 1 fall with no injury in last year 1101F Review of all meds by a prescribing practitioner or clinical pharmacist documented in EHR 1160F Screened for tobacco use AND received tobacco cessation intervention 4004F Systolic BP <130 mm Hg (Most Recent) 3074F Follow-up With When Contact Information BYRON FIGUEROA, REGINA Pedraza, URL Within 6 weeks [address] [place] [address] Business (1) Additional Instructions: Patient Education Acute Urinary Retention, Female Problem List/Past Medical History Ongoing Menopause Mini stroke Morbid obesity with BMI of 40.0-44.9, adult MS - Multiple sclerosis Smoker Historical No qualifying data Procedure/Surgical History Arthroscopy of shoulder (02/10/2024), Carpal tunnel, Ectopic . Medications busPIRone 7.5 mg oral tablet, 7.5 mg= 1 tab(s), Oral, TID busPIRone 7.5 mg oral tablet, 7.5 mg= 1 tab(s) dexamethasone 1.5 mg oral tablet, Oral, BID dexamethasone 2 mg oral tablet, Oral, BID dexamethasone 4 mg Tab, Oral, BID Fiber Tabs, Oral, QID levetiracetam 500 mg Tab, 500 mg= 1 tab(s), Oral, BID Metoprolol tartrate 25 mg Tab, 25 mg= 1 tab(s), Oral, BID mirtazapine 15 mg Tab, 15 mg= 1 tab(s) Percocet 5 mg-325 mg oral tablet, See Instructions senna (sennosides) 3 mg oral tablet, chewable, Chewed, Daily traZODONE 50 mg Tab, 25 mg= 0.5 tab(s), Oral, Once a day (at bedtime) Tylenol, 1000 mg, Oral, q6hr, PRN Allergies No Known Allergies Social History Alcohol - Denies Alcohol Use, 02/05/2024 Never, 10/09/2024 Substance Abuse - Denies Substance Abuse, 06/30/2016 Current, Marijuana, Daily, 10/09/2024 Tobacco - Denies Tobacco Use, 02/05/2024 10 or more cigarettes (1/2 pack or more)/day in last 30 days, Former smoker, quit more than 30 days ago Tobacco Use:. Never Smokeless Tobacco Use:. Cigarettes, Yes, 10/09/2024 [facility] Comment on above: Result Comment: Elec tronically Signed By: REGINA MATTHEWS PA-C.br\Date and Time Signed: 10/09/24 11:41 EDT 10-09-2024 Note Patient Education Obstetrics and Gynecology Acute Urinary Retention, Female Acute urinary retention is a condition in which a person is unable to pass urine or can only pass a little urine. This condition can happen suddenly and last for a short time. If left untreated, it can become long-term (chronic) and result in kidney damage or other serious complications. What are the causes? This condition may be caused by: ??? Obstruction or narrowing of the tube that drains the bladder (urethra). This may be caused by surgery, problems with nearby organs, or injury to the bladder or urethra. ??? Problems with the nerves in the bladder. ??? Pelvic organ prolapse. ??? Tumors in the area of the pelvis, bladder, or urethra. ??? Vaginal childbirth. ??? Bladder or urinary tract infection. ??? Constipation. ??? Certain medicines. What increases the risk? This condition is more likely to develop in women over age 50. Other chronic health conditions can increase the risk of acute urinary retention. These include: ??? Diseases such as multiple sclerosis. ??? Spinal cord injuries. ??? Diabetes. ??? Degenerative cognitive conditions, such as delirium or dementia. ??? Psychological conditions. A woman may hold her urine due to trauma or because she does not want to use the bathroom. ??? History of preexisting urinary retention. ??? History of prior pelvic surgery, incontinence surgery, or radical pelvic surgery. What are the signs or symptoms? Symptoms of this condition include: ??? Trouble urinating. ??? Pain in the lower abdomen. How is this diagnosed? This condition is diagnosed based on a physical exam and your medical history. You may also have other tests, including: ??? An ultrasound of the bladder or kidneys or both. ??? Blood tests. ??? A urine analysis. ??? Additional tests may be needed, such as a CT scan, MRI, and kidney or bladder function tests. How is this treated? Treatment for this condition may include: ??? Medicines. ??? Placing a thin, sterile tube (catheter) into the bladder to drain urine out of the body. This is called an indwelling urinary catheter. After it is inserted, the catheter is held in place with a small balloon that is filled with sterile water. Urine drains from the catheter into a collection bag outside of the body. ??? Behavioral therapy. ??? Treatment for other conditions. If needed, you may be treated in the hospital for kidney function problems or to manage other complications. Follow these instructions at home: Medicines ??? Take [id number] and prescription medicines only as told by your health care provider. Avoid certain medicines, such as decongestants, antihistamines, and some prescription medicines. Do not take any medicine unless your health care provider approves. ??? If you were prescribed an antibiotic medicine, take it as told by your health care provider. Do not stop using the antibiotic even if you start to feel better. General instructions ??? Do not use any products that contain nicotine or tobacco. These products include cigarettes, chewing tobacco, and vaping devices, such as e-cigarettes. If you need help quitting, ask your health care provider. ??? Drink enough fluid to keep your urine pale yellow. ??? If you have an indwelling urinary catheter, follow the instructions from your health care provider. ??? Monitor any changes in your symptoms. Tell your health care provider about any changes. ??? If instructed, monitor your blood pressure at home. Report changes as told by your health care provider. ??? Keep all follow-up visits. This is important. Contact a health care provider if: ??? You have uncomfortable bladder contractions that you cannot control (spasms). ??? You leak urine with the spasms. Get help right away if: ??? You have chills or a fever. ??? You have blood in your urine. ??? You have a catheter and the following happens: ? Your catheter stops draining urine. ? Your catheter falls out. Summary ??? Acute urinary retention is a condition in which a person is unable to pass urine or can only pass a little urine. If left untreated, this can result in kidney damage or other serious complications. ??? One cause of this condition may be obstruction or narrowing of the tube that drains the bladder (urethra). This may be caused by surgery, problems with nearby organs, or injury to the bladder or urethra. ??? Treatment may include medicines and placement of an indwelling urinary catheter. ??? Monitor any changes in your symptoms. Tell your health care provider about any changes. This information is not intended to replace advice given to you by your health care provider. Make sure you discuss any questions you have with your health care provider. Document Revised: 01/25/2021 Document Reviewed: 01/25/2021 Elsevier Patient Education ? 2023 [employer]. [facility] 09-29-2024 Miscellaneous Notes Demetria calls stating that she would like to know about incision care and when to remove sutures- discussed that sutures are chromic and should dissolve with washing gently over them. She states that Anupama does not want to shower daily, so she will write the order to wash gently over the incision with baby shampoo. Incision is healing well. documented in this encounter [facility] 09-29-2024 Telephone encounter Note Demetria calls stating that she would like to know about incision care and when to remove sutures- discussed that sutures are chromic and should dissolve with washing gently over them. She states that Anupama does not want to shower daily, so she will write the order to wash gently over the incision with baby shampoo. Incision is healing well. [facility] 09-29-2024 Nurse Note Summary: discharge Report called and given to [facility] Patient called and talked to daughter let her know that she was going to be leaving, patient had no belongings to send with her Patient left with [facility] transport - Elma Moreno RN 09/29/24 12:19 AM Multidisciplinary Rounds Attendees: Bedside RN, Unit clinical lead, PT, OT, PATENT PARALEGAL, and Care navigation Diet: Dietary Orders (From admission, onward) Start Ordered 09/24/24 1405 Adult diet Level 5 Minced and Moist diet; No straws Diet effective now Comments: Mildly thick liquids Question Answer Comment Diet Type: Level 5 Minced and Moist diet Additional Liquid/Fluid Modifiers: No straws 09/24/24 1407 PT OT PATENT PARALEGAL: PT OT PATENT PARALEGAL Orders (From admission, onward) Start Ordered 09/25/24 0945 Consult Occupational Therapy- eval/treat Once Question Answer Comment Does patient currently have an order for bedrest? No - (continue) Has nursing attempted to mobilize this patient? Yes- (continue) Reason for OT Discharge recommendations 09/25/24 0944 09/25/24 0944 Consult Physical Therapy- eval/treat Once Question Answer Comment Does patient currently have an order for bedrest? No - (continue) Has nursing attempted to mobilize this patient? Yes- (continue) Reason for PT? Discharge recommendations 09/25/24 0944 09/24/24 1017 Consult Speech Therapy- eval/treat (Adult Swallow Motility Function with Speech Consult eval & treat) Once Question Answer Comment Reason for ST? Video Swallow Video Swallow must be ordered within the Adult Swallow Motility Function panel. Acknowledged 09/24/24 1016 09/23/241825 Consult Speech Therapy- eval/treat Once Question Answer Comment Reason for ST? Bedside Swallow Reason for ST? Speech/Language/Cognition 09/23/241824 Activity: Up with assist Comments: Alexis: Yes CVL: No Drips: None Intubated: No Family Issues: None Outstanding Tests/Procedures: None Barriers: None Discharge Plan: Needs PT/OT evaluation Multidisciplinary Rounds Attendees: Bedside RN, Unit clinical lead, PT, OT, PATENT PARALEGAL, and Care navigation Diet: Dietary Orders (From admission, onward) Start Ordered 09/23/242142 Adult diet Regular Texture Diet effective now Question: Diet Type: Answer: Regular Texture 09/23/242142 PT OT PATENT PARALEGAL: PT OT PATENT PARALEGAL Orders (From admission, onward) Start Ordered 09/24/24 1017 Consult Speech Therapy- eval/treat (Adult Swallow Motility Function with Speech Consult eval & treat) Once Question Answer Comment Reason for ST? Video Swallow Video Swallow must be ordered within the Adult Swallow Motility Function panel. Acknowledged 09/24/24 1016 09/23/24 182 Consult Speech Therapy- eval/treat Once Question Answer Comment Reason for ST? Bedside Swallow Reason for ST? Speech/Language/Cognition 09/23/241824 Activity: Up with assist Comments: Alexis: Yes and Continues to meet requirements per urology leave until 09/29 CVL: No Drips: None Intubated: No Family Issues: None Outstanding Tests/Procedures: None Barriers: None Discharge Plan: Needs PT/OT evaluation documented in this encounter [facility] 09-29-2024 Miscellaneous Notes Problem: Pain Goal: Patient goal is pain score less than 4, able to rest, and participant in treatment plan as appropriate Description: INTERVENTIONS: 1. Encourage patient or legal passenger relations representative to report early pain and ask for pain medicine when needed 2. Assess pain using appropriate pain scale and include the scale used when documenting 3. Administer analgesics based on type and severity of pain and evaluate response within appropriate time frame 4. Implement non-pharmacological measures as appropriate and evaluate response 5. Consider cultural and social influences on pain and pain management 6. Notify LIP if interventions ineffective or patient reports new pain 7. Monitor vital signs including pulse ox, end-tidal CO2 based on pain intervention 8. Reassess pain per policy 9. Teach patient or legal passenger relations representative interventions for comforting Outcome: Adequate for Discharge Problem: Safety Goal: Patient will be injury free during hospitalization Description: INTERVENTIONS: 1. Assess patient's risk for falls and implement fall prevention plan of care per policy 2. Provide and maintain a safe environment 3. Proper use of double Identifiers 4. Medication administration using the 5 rights 5. Hand hygiene 6. Specimens are labeled at the bedside 7. Instruct patient/ patient passenger relations representative about use of safety devices 8. Include patient/ patient passenger relations representative in decisions related to safety Outcome: Adequate for Discharge Problem: Infection Goal: Absence of infection during hospitalization Description: INTERVENTIONS 1. Assess and monitor for signs and symptoms of infection. 2. Monitor lab/diagnostic results. 3. Monitor all insertion sites i.e., indwelling lines, tubes and drains. 4. Monitor endotracheal (as able) and nasal secretions for changes in amount and color. 5. Administer medications as ordered. 6. Instruct and encourage patient and family to use good hand hygiene technique. 7. Identify and instruct patient/patient passenger relations representative in use of appropriate isolation precautions for identified infection/symptoms. 8. Provide and discuss with patient/patient passenger relations representative on educational MDRO sheet. 9. Encourage and monitor nutritional status daily and consult digital analytics manager if indicated. 10. Implement neutropenic guidelines as needed. Outcome: Adequate for Discharge Problem: Knowledge Deficit Goal: Patient/patient passenger relations representative demonstrates understanding of disease process, treatment plan, medications, and discharge instructions Description: INTERVENTIONS 1. Complete learning assessment and assess knowledge base 2. Provide teaching at level of understanding 3. Provide teaching via preferred learning method(s) Outcome: Adequate for Discharge Problem: Discharge Planning Goal: Discharge to post-acute care, other facility, or home with appropriate resources Description: Patient's goal is: INTERVENTIONS 1. Conduct assessment to determine patient/family and health care team treatment goals, and need for post-acute services based on payer coverage, community resources, and patient preferences, and barriers to discharge 2. Coordinate with Social work, Care Navigation, and Utilization Review to arrange appropriate level of services according to patient's needs based on patient preference and payer coverage in collaboration with the physician and health care team 3. Address psychosocial, clinical, and financial barriers to discharge as identified in assessment in conjunction with the patient/family and health care team 4. Consult appropriate ancillary services (i.e.. PT/OT/ST, etc) as needed 5. Communicate with and update the patient/family, physician, and health care team regarding progress on the discharge plan 6. Identify discharge learning needs (meds, wound care, etc). 7. Arrange for needed discharge transportation as appropriate Outcome: Adequate for Discharge Problem: Potential for Compromised Skin Integrity Goal: Skin integrity is maintained or improved Description: Patient's goal is: INTERVENTIONS 1. Perform initial skin assessment on admission and as needed 2. Turn patient every 2 hours and PRN 3. Relieve pressure to bony prominences 4. Avoid shearing 5. Keep skin clean and dry 6. Alternate a full bath with partial baths for elderly 7. Apply lotion/moisturizer on skin 8. Monitor patient's hygiene practices 9. Float heels 10. Collaborate with interdisciplinary team and initiate plans and interventions as needed Outcome: Adequate for Discharge Goal: Patient's nutritional intake is adequate Description: Patient's goal is: INTERVENTIONS 1. Assess and monitor food intake and supplements, patient food preferences, nausea, vomiting, labs, oral cavity (gums, teeth, tongue, mucosa), proper denture fit, and cultural beliefs 2. Monitor for signs of hypoglycemia and hyperglycemia 3. Collaborate with interdisciplinary team and initiate plan and interventions as ordered 4. Monitor patient's weight 5. Assist patient with meals/food selection 6. Assist patient with eating 7. Allow adequate time for meals 8. Provide pleasant environment during mealtime 9. Increase social contact during mealtimes 10. Plan activities to conserve energy 11. Encourage/perform oral hygiene as appropriate 12. Encourage patient to take dietary supplement as ordered 13. Collaborate with clinical digital analytics manager 14. Include patient/ patient's passenger relations representative in decisions related to nutrition Outcome: Adequate for Discharge Problem: Urinary Incontinence Goal: Perineal skin integrity is maintained or improved Description: INTERVENTIONS 1. Assess genitourinary system, perineal skin, labs (urinalysis), and history of incontinence to include past management, aggravating, and alleviating factors 2. Keep skin clean and dry 3. Apply skin protectant 4. Develop skin care regimen 5. Provide privacy when changing patients incontinence device to maintain their dignity 6. Consider placing an indwelling catheter 7. Collaborate with interdisciplinary team and initiate plans and interventions as needed Outcome: Adequate for Discharge Problem: Moderate - High Risk Fall Score Description: [place] Fall Score of =/> 25 or indicated by [facility] Assessment Goal: Patient should be free from fall Description: Interventions: 1. [place] to environment 2. Hourly rounds addressing the 4 P's (Pain, Positioning, Possessions, Potty) 3. Clear area of hazards (spills, clutter, electrical cords, unnecessary equipment) 4. Place equipment (bed & TV controls, call light, phone, urinal) within reach 5. Encourage patient to wear glasses and hearing aides as appropriate 6. Maintain bed in lowest position 7. Lock wheels on bed/wheelchair 8. Provide adequate lighting, including night light 9. Assess need for additional bedding, food/fluids, pain med's prior to sleep/routinely 10. Provide gripper slippers or personal non-skid footwear 11. Teach patient and patient passenger relations representative to maintain environment for safety and engage in all aspects of fall prevention program 12. Remind patient to call for help before getting out of bed 13. Initiate bed/chair/exit alarms supportive devices as appropriate, (chair wedge, no-skid floor mat, raised edge mattress, hip protectors) 14. Locate patient bed assignment for optimal visualization 15. Evaluate and identify Safe Patient Handling Equipment needs 16. Provide supervision when out of bed or chair 17. Utilize gait belt as needed to assist with ambulation 18. Place adaptive equipment (cane, walker) within reach 19. Request patient passenger relations representative bring adaptive equipment/mobility aids from home or obtain and provide as needed 20. Consult pharmacy regarding effects of med's affecting mobility, cognition, and alternatives 21. Obtain physician order for PT if risk factors associated with mobility are present 22. Obtain physician order for OT as appropriate 23. Utilize diversional activities 24. Educate patient and patient passenger relations representative how to maintain a safe environment during visitation times (notify nurse prior to leaving bedside) 25. Consider appropriateness of medical or non-medical billing coordinator 26. Set up voiding schedule as appropriate (every 2 hours) Outcome: Adequate for Discharge Problem: Neurosensory - Adult Goal: Achieves stable or improved neurological status Description: Patient's goal is: INTERVENTIONS 1. Assess for and report changes in neurological status 2. Initiate measures to prevent increased intracranial pressure 3. Maintain blood pressure and fluid volume within ordered parameters to optimize cerebral perfusion and minimize risk of hemorrhage 4. Monitor temperature, glucose, and sodium. Initiate appropriate interventions as ordered Outcome: Adequate for Discharge Speech Therapy Videofluoroscopic Swallow Study Evaluation Impressions Oral Phase: Mild-moderate Pharyngeal Phase: Mild Functional Oral Intake Scale: Total PO intake. 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 Pt educated on purpose of exam, contrast administration, and procedural techniques prior to initiation of exam. Pt educated on diet recommendations, plan of care, and encouraged to use safety strategies in order to maintain safe PO intake following exam. Prognosis Services: Skilled PATENT PARALEGAL services to address above deficits Prognosis/Potential: Good Considerations: Age, Cognition Assessment Baseline Assessment Allergies Marked As Reviewed: Complete Consistencies Tested Views: Lateral position Level 0 Thin: Spoon, Cup, Straw Level 4 Pureed: Spoon Level 6 Soft & Bite-Sized: Spoon Regular Tested: Bite Modified Barium Swallow Impairment Profile (MBSImP) Oral Impairment: Yes Component 1: Lip Closure: no labial escape Component 2: Tongue Control During Bolus Hold: posterior escape of less than half of bolus Component 3: Bolus Preparation/Mastication: slow prolonged chewing/mashing with complete re-collection Component 4: Bolus Transport/Lingual Motion: slowed tongue motion Component 5: Oral Residue: trace residue lining oral structures Component 6: Initiation of Pharyngeal Swallow: bolus head in pyriforms Pharyngeal Impairment: Yes Component 7: Soft Palate Elevation: no bolus between soft palate/posterior pharyngeal wall Component 8: Laryngeal Elevation: partial superior movement of thyroid cartilage/partial approximation of arytenoids to epiglottic petiole Component 9: Anterior Hyoid Excursion: partial anterior movement Component 10: Epiglottic Movement: partial inversion Component 11: Laryngeal Vestibular Closure - Height of the Swallow: incomplete, narrow column of contrast/air in laryngeal vestibule Component 12: Pharyngeal Stripping Wave: present - diminished Component 13: Pharyngeal Contraction (A/P view only): could not be determined due to logistical reasons not related to physiologic impairment Component 14: Pharyngoesophageal Segment Opening: partial distension/partial duration, partial obstruction of flow Component 15: Tongue Base Retraction: trace column of contrast/air between tongue base and posterior pharyngeal wall Component 16: Pharyngeal Residue: trace residue within or on pharyngeal structures [facility] Overall Impression Scores Oral Impairment Total: 9 Pharyngeal Impairment Total: 8 Penetration/Aspiration Scale Penetration/Aspiration Scale Performed: Yes Level 0 Thin: Contrast entered the airway, remained above the vocal folds, and was ejected from the airway Level 4 Pureed: Contrast did not enter the airway Level 6 Soft & Bite-Sized: Contrast did not enter the airway Regular: Contrast did not enter the airway Trialed Compensatory Strategies Strategies Utilized: Small sips/bites, Controlled bolus Effective: Yes Pain Assessment Pain Assessment: No/denies pain Plan Diagnosis Code Swallowing: R13.12 Dysphagia, oropharyngeal phase Speech Therapy Care Plan Speech Therapy Care Plan (Active) Template: ST - Dysphagia Problem: Swallowing Dates: Start: 09/24/24 Disciplines: PATENT [employer]GAL Goal: LTG: Patient will tolerate least restrictive diet recommended by PATENT [employer]GAL without signs and symptoms of aspiration 90% of the time Dates: Start: 09/24/24 Expected End: 10/25/24 Disciplines: PATENT [employer]GAL Outcomes Date/Time User Outcome 09/28/24 1126 Laurel Moralez CCC-PATENT PARALEGAL Progressing Goal: STG: Patient will complete safety strategies independently during PO intake 90% of the time Dates: Start: 09/24/24 Expected End: 10/25/24 Disciplines: PATENT PARALEGAL Outcomes Date/Time User Outcome 09/28/24 NATANAEL Whitfield Progressing Goal: STG: Patient will complete oral/ pharyngeal strengthening program with resistance with 90% accuracy with minimal cueing Dates: Start: 09/24/24 Expected End: 10/25/24 Disciplines: PATENT PARALEGAL Outcomes Date/Time User Outcome 09/28/24 NATANAEL Whitfield Progressing Goal: STG: Patient will tolerate therapeutic feeding trials of advanced textures with 90% accuracy with minimal cueing Dates: Start: 09/24/24 Expected End: 10/25/24 Disciplines: PATENT PAR[employer]GAL Outcomes Date/Time User Outcome 09/28/24 NATANAEL Whitfield Progressing Template: ST - Rehab Speech Problem: Auditory Comprehension Dates: Start: 09/24/24 Disciplines: PATENT [employer]GAL Goal: LTG: Patient will comprehend communication related to basic medical and social needs and utilize compensatory strategies to maintain safety in a functional living environment Dates: Start: 09/24/24 Expected End: 10/25/24 Disciplines: PATENT [employer]ALEGAL Goal: STG: Patient will answer complex yes/no questions with 90% accuracy with minimal cueing Dates: Start: 09/24/24 Expected End: 10/25/24 Disciplines: PATENT PARALEGAL Goal: STG: Patient will complete 1-3 step commands with 90% accuracy with minimal cueing Dates: Start: 09/24/24 Expected End: 10/25/24 Disciplines: PATENT [employer]ALEGAL Goal: STG: Patient will complete simple, phrase level auditory comprehension tasks with 90% accuracy with minimal cueing Dates: Start: 09/24/24 Expected End: 10/25/24 Disciplines: PATENT [employer]GAL Problem: Cognitive Linguistic Dates: Start: 09/24/24 Disciplines: PATENT [employer]GAL Goal: LTG: Patient will display functional cognitive-linguistic skills to demonstrate appropriate communication and safety within daily activities in a functional living environment Dates: Start: 09/24/24 Expected End: 10/25/24 Disciplines: PATENT [employer]ALEGAL Goal: STG: Patient will demonstrate sustained attention by maintaining focus during a task for 10 minutes with minimal assistance Dates: Start: 09/24/24 Expected End: 10/25/24 Disciplines: PATENT [employer]GAL Goal: STG: Patient will be appropriately oriented to person, place, time and situation with 90% accuracy with minimal cueing Dates: Start: 09/24/24 Expected End: 10/25/24 Disciplines: PATENT [employer]GAL Goal: STG: Patient will describe/demonstrate/initiate use of 3 memory strategies with minimal cueing Dates: Start: 09/24/24 Expected End: 10/25/24 Disciplines: PATENT [employer]GAL Problem: High Level Language Dates: Start: 09/24/24 Disciplines: PATENT [employer]GAL Goal: LTG: Patient will demonstrate use of self-awareness, goal setting, planning, initiation, self-monitoring and problem solving during daily activities to improve safety and awareness in a functional living environment Dates: Start: 09/24/24 Expected End: 10/25/24 Disciplines: PATENT [employer]GAL Goal: STG: Patient will demonstrate functional problem solving and safety awareness with 90% accuracy in daily living tasks in order to increase safe interactions with environment and decrease assistance from caregivers Dates: Start: 09/24/24 Expected End: 10/25/24 Disciplines: PATENT [employer]GAL Problem: Speech Production Dates: Start: 09/24/24 Disciplines: PATENT [employer]ALEGAL Goal: LTG: Patient will develop functional and intelligible speech and utilize compensatory strategies through the use of adequate labial and lingual function, increased articulatory precision and speech prosody Dates: Start: 09/24/24 Expected End: 10/25/24 Disciplines: PATENT [employer]GAL Goal: STG: Patient will use appropriate articulatory accuracy and speech rate when reading/speaking with 90% accuracy with minimal cueing Dates: Start: 09/24/24 Expected End: 10/25/24 Disciplines: PATENT [employer]GAL Goal: STG: Patient will complete rapid alternating verbal sequences (tongue twisters) with improved articulatory precision with 90% accuracy with minimal cueing Dates: Start: 09/24/24 Expected End: 10/25/24 Disciplines: PATENT [employer]GAL Problem: Verbal Expression Dates: Start: 09/24/24 Disciplines: PATENT [employer]GAL Goal: LTG: Patient will utilize compensatory strategies to communicate wants and needs effectively to different conversational partners, maintain safety and participate socially in a functional living environment Dates: Start: 09/24/24 Expected End: 10/25/24 Disciplines: PATENT [employer]GAL Goal: STG: Patient will describe objects, pictures (salient features) with 90% accuracy with minimal cueing to improve word retrieval skills Dates: Start: 09/24/24 Expected End: 10/25/24 Disciplines: PATENT PARALEGAL Goal: STG: Patient will respond to simple/complex open ended questions during activities of daily living with 90% accuracy with minimal cueing Dates: Start: 09/24/24 Expected End: 10/25/24 Disciplines: PATENT [employer]GAL Goal: STG: Patient will complete simple to complex divergent and convergent naming tasks with 90% accuracy with minimal cueing to improve thought organization Dates: Start: 09/24/24 Expected End: 10/25/24 Disciplines: PATENT [employer]ALEGAL Speech Therapy Care Plan (Resolved) There are no resolved problems. Principal Problem: Altered mental status, unspecified altered mental status type Active Problems: Generalized anxiety disorder with panic attacks Hyperlipidemia, acquired Multiple sclerosis (CMS-HCC) LORENZO (obstructive sleep apnea) Primary hypertension Depression, unspecified Dysphagia, oropharyngeal phase DISCHARGE PLANNING NOTE BLS via PTN scheduled for today 09/28/24 at [address] [facility]. confirmed in [employer]. DISCHARGE PLANNING NOTE Prior Auth approved for admission to : [facility] (P#: ; F#: ) Approval # [id number] Valid for Dates: 09/28/2024 - 09/30/2024 Speech Therapy Dysphagia Treatment Note Assessment: Current Diet Tolerance: Level 2 Mildly Thick and Level 5 Minced and Moist Progress: improving Pain Assessment Pain Assessment: No/denies pain Recommendations Diet: Level 5 minced and moist diet, level 2 mildly thick liquids (no straws) Discharge: [facility] Living Facility Precautions Aspiration Plan: Plan of Care: continue with current plan of care Continue with Current Diet: yes Diet: Level 5 Minced and Moist Liquids: Level 2 Mildly Thick Safety Strategies: medications in applesauce, small sips/bites, 1 at a time, no straws, and slow rate Subjective Setting: bedside Arrival Status: awake and alert Mental Status: pleasant Therapy Tolerance: good Change in Medical Status: no Received Recent Medications: no Objective NMES: No 1. Therapy Activity: Effortful Swallow (8, 10, 11, 12, 13, 14, 15) Number of Trials: 10 Cueing/Assistance Required: moderate Cueing Type: verbal 2. Therapy Activity: Aline Maneuver (8, 10, 11, 12, 13, 14, 15) Number of Trials: 5 Cueing/Assistance Required: moderate Cueing Type: verbal Diet Trials: Ice Chips and Level 0 Thin Outcome: tolerated without s/s aspiration Ok to repeat VFSS to determine least restrictive diet. Plan Speech Therapy Care Plan Speech Therapy Care Plan (Active) Template: ST - Dysphagia Problem: Swallowing Dates: Start: 09/24/24 Disciplines: PATENT [employer]ALEGAL Goal: LTG: Patient will tolerate least restrictive diet recommended by PATENT PARALEGAL without signs and symptoms of aspiration 90% of the time Dates: Start: 09/24/24 Expected End: 10/25/24 Disciplines: PATENT [employer]ALEGAL Outcomes Date/Time User Outcome 09/28/24 MARCELA WhitfieldPATENT PARALEGAL Progressing Goal: STG: Patient will complete safety strategies independently during PO intake 90% of the time Dates: Start: 09/24/24 Expected End: 10/25/24 Disciplines: PATENT PARALEGAL Outcomes Date/Time User Outcome 09/28/24 MARCELA WhitfieldPATENT PARALEGAL Progressing Goal: STG: Patient will complete oral/ pharyngeal strengthening program with resistance with 90% accuracy with minimal cueing Dates: Start: 09/24/24 Expected End: 10/25/24 Disciplines: PATENT PARALEGAL Outcomes Date/Time User Outcome 09/28/24 MARCELA WhitfieldPATENT PARALEGAL Progressing Goal: STG: Patient will tolerate therapeutic feeding trials of advanced textures with 90% accuracy with minimal cueing Dates: Start: 09/24/24 Expected End: 10/25/24 Disciplines: PATENT [employer]ALEGAL Outcomes Date/Time User Outcome 09/28/24 MARCELA WhitfieldPATENT PARALEGAL Progressing Template: ST - Rehab Speech Problem: Auditory Comprehension Dates: Start: 09/24/24 Disciplines: PATENT [employer]ALEGAL Goal: LTG: Patient will comprehend communication related to basic medical and social needs and utilize compensatory strategies to maintain safety in a functional living environment Dates: Start: 09/24/24 Expected End: 10/25/24 Disciplines: PATENT [employer]ALEGAL Goal: STG: Patient will answer complex yes/no questions with 90% accuracy with minimal cueing Dates: Start: 09/24/24 Expected End: 10/25/24 Disciplines: PATENT PARALEGAL Goal: STG: Patient will complete 1-3 step commands with 90% accuracy with minimal cueing Dates: Start: 09/24/24 Expected End: 10/25/24 Disciplines: PATENT [employer]ALEGAL Goal: STG: Patient will complete simple, phrase level auditory comprehension tasks with 90% accuracy with minimal cueing Dates: Start: 09/24/24 Expected End: 10/25/24 Disciplines: PATENT [employer]ALEGAL Problem: Cognitive Linguistic Dates: Start: 09/24/24 Disciplines: PATENT [employer]ALEGAL Goal: LTG: Patient will display functional cognitive-linguistic skills to demonstrate appropriate communication and safety within daily activities in a functional living environment Dates: Start: 09/24/24 Expected End: 10/25/24 Disciplines: PATENT PARALEGAL Goal: STG: Patient will demonstrate sustained attention by maintaining focus during a task for 10 minutes with minimal assistance Dates: Start: 09/24/24 Expected End: 10/25/24 Disciplines: PATENT [employer]ALEGAL Goal: STG: Patient will be appropriately oriented to person, place, time and situation with 90% accuracy with minimal cueing Dates: Start: 09/24/24 Expected End: 10/25/24 Disciplines: PATENT [employer]ALEGAL Goal: STG: Patient will describe/demonstrate/initiate use of 3 memory strategies with minimal cueing Dates: Start: 09/24/24 Expected End: 10/25/24 Disciplines: PATENT [employer]GAL Problem: High Level Language Dates: Start: 09/24/24 Disciplines: PATENT [employer]ALEGAL Goal: LTG: Patient will demonstrate use of self-awareness, goal setting, planning, initiation, self-monitoring and problem solving during daily activities to improve safety and awareness in a functional living environment Dates: Start: 09/24/24 Expected End: 10/25/24 Disciplines: PATENT [employer]ALEGAL Goal: STG: Patient will demonstrate functional problem solving and safety awareness with 90% accuracy in daily living tasks in order to increase safe interactions with environment and decrease assistance from caregivers Dates: Start: 09/24/24 Expected End: 10/25/24 Disciplines: PATENT [employer]ALEGAL Problem: Speech Production Dates: Start: 09/24/24 Disciplines: PATENT PARALEGAL Goal: LTG: Patient will develop functional and intelligible speech and utilize compensatory strategies through the use of adequate labial and lingual function, increased articulatory precision and speech prosody Dates: Start: 09/24/24 Expected End: 10/25/24 Disciplines: PATENT [employer]ALEGAL Goal: STG: Patient will use appropriate articulatory accuracy and speech rate when reading/speaking with 90% accuracy with minimal cueing Dates: Start: 09/24/24 Expected End: 10/25/24 Disciplines: PATENT PARALEGAL Goal: STG: Patient will complete rapid alternating verbal sequences (tongue twisters) with improved articulatory precision with 90% accuracy with minimal cueing Dates: Start: 09/24/24 Expected End: 10/25/24 Disciplines: PATENT PARALEGAL Problem: Verbal Expression Dates: Start: 09/24/24 Disciplines: PATENT PARALEGAL Goal: LTG: Patient will utilize compensatory strategies to communicate wants and needs effectively to different conversational partners, maintain safety and participate socially in a functional living environment Dates: Start: 09/24/24 Expected End: 10/25/24 Disciplines: PATENT [employer]ALEGAL Goal: STG: Patient will describe objects, pictures (salient features) with 90% accuracy with minimal cueing to improve word retrieval skills Dates: Start: 09/24/24 Expected End: 10/25/24 Disciplines: PATENT PARALEGAL Goal: STG: Patient will respond to simple/complex open ended questions during activities of daily living with 90% accuracy with minimal cueing Dates: Start: 09/24/24 Expected End: 10/25/24 Disciplines: PATENT PARALEGAL Goal: STG: Patient will complete simple to complex divergent and convergent naming tasks with 90% accuracy with minimal cueing to improve thought organization Dates: Start: 09/24/24 Expected End: 10/25/24 Disciplines: PATENT [employer]GAL Speech Therapy Care Plan (Resolved) There are no resolved problems. Principal Problem: Altered mental status, unspecified altered mental status type Active Problems: Generalized anxiety disorder with panic attacks Hyperlipidemia, acquired Multiple sclerosis (CMS-HCC) LORENZO (obstructive sleep apnea) Primary hypertension Depression, unspecified Dysphagia, oropharyngeal phase Problem: Pain Goal: Patient goal is pain score less than 4, able to rest, and participant in treatment plan as appropriate Description: INTERVENTIONS: 1. Encourage patient or legal passenger relations representative to report early pain and ask for pain medicine when needed 2. Assess pain using appropriate pain scale and include the scale used when documenting 3. Administer analgesics based on type and severity of pain and evaluate response within appropriate time frame 4. Implement non-pharmacological measures as appropriate and evaluate response 5. Consider cultural and social influences on pain and pain management 6. Notify LIP if interventions ineffective or patient reports new pain 7. Monitor vital signs including pulse ox, end-tidal CO2 based on pain intervention 8. Reassess pain per policy 9. Teach patient or legal passenger relations representative interventions for comforting Outcome: Progressing Note: Evaluation of progress towards goal: pt has denied pain this shift will continue to monitor and use nonpharmacologic measures to relieve mild discomfort Problem: Safety Goal: Patient will be injury free during hospitalization Description: INTERVENTIONS: 1. Assess patient's risk for falls and implement fall prevention plan of care per policy 2. Provide and maintain a safe environment 3. Proper use of double Identifiers 4. Medication administration using the 5 rights 5. Hand hygiene 6. Specimens are labeled at the bedside 7. Instruct patient/ patient passenger relations representative about use of safety devices 8. Include patient/ patient passenger relations representative in decisions related to safety Outcome: Progressing Note: Evaluation of progress towards goal: pt has been injury free this shift. Will continue to monitor and keep items in reach and educate to use the call button when in need of anything Problem: Infection Goal: Absence of infection during hospitalization Description: INTERVENTIONS 1. Assess and monitor for signs and symptoms of infection. 2. Monitor lab/diagnostic results. 3. Monitor all insertion sites i.e., indwelling lines, tubes and drains. 4. Monitor endotracheal (as able) and nasal secretions for changes in amount and color. 5. Administer medications as ordered. 6. Instruct and encourage patient and family to use good hand hygiene technique. 7. Identify and instruct patient/patient passenger relations representative in use of appropriate isolation precautions for identified infection/symptoms. 8. Provide and discuss with patient/patient passenger relations representative on educational MDRO sheet. 9. Encourage and monitor nutritional status daily and consult digital analytics manager if indicated. 10. Implement neutropenic guidelines as needed. Outcome: Progressing Note: Evaluation of progress towards goal: hand hygiene is preformed when entering and leaving the room. And no new s/s of infection are present. Will continue to monitor Problem: Knowledge Deficit Goal: Patient/patient passenger relations representative demonstrates understanding of disease process, treatment plan, medications, and discharge instructions Description: INTERVENTIONS 1. Complete learning assessment and assess knowledge base 2. Provide teaching at level of understanding 3. Provide teaching via preferred learning method(s) Outcome: Progressing Note: Evaluation of progress towards goal: pt and family verbalized and demonstrates understanding of plan of care and medications being given Problem: Discharge Planning Goal: Discharge to post-acute care, other facility, or home with appropriate resources Description: Patient's goal is: INTERVENTIONS 1. Conduct assessment to determine patient/family and health care team treatment goals, and need for post-acute services based on payer coverage, community resources, and patient preferences, and barriers to discharge 2. Coordinate with Social work, Care Navigation, and Utilization Review to arrange appropriate level of services according to patient's needs based on patient preference and payer coverage in collaboration with the physician and health care team 3. Address psychosocial, clinical, and financial barriers to discharge as identified in assessment in conjunction with the patient/family and health care team 4. Consult appropriate ancillary services (i.e.. PT/OT/ST, etc) as needed 5. Communicate with and update the patient/family, physician, and health care team regarding progress on the discharge plan 6. Identify discharge learning needs (meds, wound care, etc). 7. Arrange for needed discharge transportation as appropriate Outcome: Progressing Note: Evaluation of progress towards goal: pt will be discharged when deemed appropriate. Will continue to answer follow up questions Problem: Potential for Compromised Skin Integrity Goal: Skin integrity is maintained or improved Description: Patient's goal is: INTERVENTIONS 1. Perform initial skin assessment on admission and as needed 2. Turn patient every 2 hours and PRN 3. Relieve pressure to bony prominences 4. Avoid shearing 5. Keep skin clean and dry 6. Alternate a full bath with partial baths for elderly 7. Apply lotion/moisturizer on skin 8. Monitor patient's hygiene practices 9. Float heels 10. Collaborate with interdisciplinary team and initiate plans and interventions as needed Outcome: Progressing Note: Evaluation of progress towards goal: Pt shows no new s/s of skin breakdown. Will continue to monitor Goal: Patient's nutritional intake is adequate Description: Patient's goal is: INTERVENTIONS 1. Assess and monitor food intake and supplements, patient food preferences, nausea, vomiting, labs, oral cavity (gums, teeth, tongue, mucosa), proper denture fit, and cultural beliefs 2. Monitor for signs of hypoglycemia and hyperglycemia 3. Collaborate with interdisciplinary team and initiate plan and interventions as ordered 4. Monitor patient's weight 5. Assist patient with meals/food selection 6. Assist patient with eating 7. Allow adequate time for meals 8. Provide pleasant environment during mealtime 9. Increase social contact during mealtimes 10. Plan activities to conserve energy 11. Encourage/perform oral hygiene as appropriate 12. Encourage patient to take dietary supplement as ordered 13. Collaborate with clinical digital analytics manager 14. Include patient/ patient's passenger relations representative in decisions related to nutrition Outcome: Progressing Note: Evaluation of progress towards goal: Problem: Urinary Incontinence Goal: Perineal skin integrity is maintained or improved Description: INTERVENTIONS 1. Assess genitourinary system, perineal skin, labs (urinalysis), and history of incontinence to include past management, aggravating, and alleviating factors 2. Keep skin clean and dry 3. Apply skin protectant 4. Develop skin care regimen 5. Provide privacy when changing patients incontinence device to maintain their dignity 6. Consider placing an indwelling catheter 7. Collaborate with interdisciplinary team and initiate plans and interventions as needed Outcome: Progressing Note: Evaluation of progress towards goal: pt has alexis in place. Alexis care is given once a shift and as needed Problem: Moderate - High Risk Fall Score Description: García Fall Score of =/> 25 or indicated by [facility] Assessment Goal: Patient should be free from fall Description: Interventions: 1. [place] to environment 2. Hourly rounds addressing the 4 P's (Pain, Positioning, Possessions, Potty) 3. Clear area of hazards (spills, clutter, electrical cords, unnecessary equipment) 4. Place equipment (bed & TV controls, call light, phone, urinal) within reach 5. Encourage patient to wear glasses and hearing aides as appropriate 6. Maintain bed in lowest position 7. Lock wheels on bed/wheelchair 8. Provide adequate lighting, including night light 9. Assess need for additional bedding, food/fluids, pain med's prior to sleep/routinely 10. Provide gripper slippers or personal non-skid footwear 11. Teach patient and patient passenger relations representative to maintain environment for safety and engage in all aspects of fall prevention program 12. Remind patient to call for help before getting out of bed 13. Initiate bed/chair/exit alarms supportive devices as appropriate, (chair wedge, no-skid floor mat, raised edge mattress, hip protectors) 14. Locate patient bed assignment for optimal visualization 15. Evaluate and identify Safe Patient Handling Equipment needs 16. Provide supervision when out of bed or chair 17. Utilize gait belt as needed to assist with ambulation 18. Place adaptive equipment (cane, walker) within reach 19. Request patient passenger relations representative bring adaptive equipment/mobility aids from home or obtain and provide as needed 20. Consult pharmacy regarding effects of med's affecting mobility, cognition, and alternatives 21. Obtain physician order for PT if risk factors associated with mobility are present 22. Obtain physician order for OT as appropriate 23. Utilize diversional activities 24. Educate patient and patient passenger relations representative how to maintain a safe environment during visitation times (notify nurse prior to leaving bedside) 25. Consider appropriateness of medical or non-medical billing coordinator 26. Set up voiding schedule as appropriate (every 2 hours) Outcome: Progressing Note: Evaluation of progress towards goal: Pt has been fall free this shift. Will continue to educate pt on fall risk and assess needs before leaving the room. Items and call light are within reach Problem: Neurosensory - Adult Goal: Achieves stable or improved neurological status Description: Patient's goal is: INTERVENTIONS 1. Assess for and report changes in neurological status 2. Initiate measures to prevent increased intracranial pressure 3. Maintain blood pressure and fluid volume within ordered parameters to optimize cerebral perfusion and minimize risk of hemorrhage 4. Monitor temperature, glucose, and sodium. Initiate appropriate interventions as ordered Outcome: Progressing Note: Evaluation of progress towards goal: Patient's chart, labs, vital signs reviewed today. Patient is medically stable for discharge at this time, awaiting precert to residential facility. JACQUELINE Ayala 09/28/24 1016 DISCHARGE PLANNING NOTE Case discussed in daily transition rounds and chart reviewed by CN. Barriers to discharge include SNF precert Discharge Plan remains: return to [facility] SNF. Waiting insurance approval for SNF stay- precert initiated on 09/26. Family is aware and agreeable to transition plan. CN will continue to follow and is available should any further needs arise. - RAMIREZ COTTO 09/28/24 9:44 AM Insurance approved SNF stay. Discharge written, CRF complete. Social work task [facility] to arrange BLS transport and [address] [facility] [address] was [address] [facility] notified of discharge and CRF sent. RN updated. Patient is aware and agreeable to transition plan. Social work left a message for daughter to inform of above. - RAMIREZ COTTO 09/28/24 3:29 PM 09/28/24 0943 Enhanced DTR What is the Discharge / Transition Plan? Skilled Return What are the discharge barriers to achieving this plan? Waiting on precertification Problem: Pain Goal: Patient goal is pain score less than 4, able to rest, and participant in treatment plan as appropriate Description: INTERVENTIONS: 1. Encourage patient or legal passenger relations representative to report early pain and ask for pain medicine when needed 2. Assess pain using appropriate pain scale and include the scale used when documenting 3. Administer analgesics based on type and severity of pain and evaluate response within appropriate time frame 4. Implement non-pharmacological measures as appropriate and evaluate response 5. Consider cultural and social influences on pain and pain management 6. Notify LIP if interventions ineffective or patient reports new pain 7. Monitor vital signs including pulse ox, end-tidal CO2 based on pain intervention 8. Reassess pain per policy 9. Teach patient or legal passenger relations representative interventions for comforting Outcome: Progressing Note: Evaluation of progress towards goal: Patient encouraged to report pain occurrence. Pain to be assessed using 0-10 scale. Pain control with scheduled & PRN pain medication. Pain to be reassessed with in an hour of intervention. Problem: Safety Goal: Patient will be injury free during hospitalization Description: INTERVENTIONS: 1. Assess patient's risk for falls and implement fall prevention plan of care per policy 2. Provide and maintain a safe environment 3. Proper use of double Identifiers 4. Medication administration using the 5 rights 5. Hand hygiene 6. Specimens are labeled at the bedside 7. Instruct patient/ patient passenger relations representative about use of safety devices 8. Include patient/ patient passenger relations representative in decisions related to safety Outcome: Progressing Note: Evaluation of progress towards goal: patient remains free from injury at this time. Safety precautions in place. Problem: Infection Goal: Absence of infection during hospitalization Description: INTERVENTIONS 1. Assess and monitor for signs and symptoms of infection. 2. Monitor lab/diagnostic results. 3. Monitor all insertion sites i.e., indwelling lines, tubes and drains. 4. Monitor endotracheal (as able) and nasal secretions for changes in amount and color. 5. Administer medications as ordered. 6. Instruct and encourage patient and family to use good hand hygiene technique. 7. Identify and instruct patient/patient passenger relations representative in use of appropriate isolation precautions for identified infection/symptoms. 8. Provide and discuss with patient/patient passenger relations representative on educational MDRO sheet. 9. Encourage and monitor nutritional status daily and consult digital analytics manager if indicated. 10. Implement neutropenic guidelines as needed. Outcome: Progressing Note: Evaluation of progress towards goal: [employer]ager assessed pt risk for infection in the beginning and throughout shift. Pt remains afebrile. Will continue to monitor. Problem: Knowledge Deficit Goal: Patient/patient passenger relations representative demonstrates understanding of disease process, treatment plan, medications, and discharge instructions Description: INTERVENTIONS 1. Complete learning assessment and assess knowledge base 2. Provide teaching at level of understanding 3. Provide teaching via preferred learning method(s) Outcome: Progressing Note: Evaluation of progress towards goal: [employer]ager educated pt on admission disease, medications, treatment, and discharge planning. Will continue to monitor. Problem: Discharge Planning Goal: Discharge to post-acute care, other facility, or home with appropriate resources Description: Patient's goal is: INTERVENTIONS 1. Conduct assessment to determine patient/family and health care team treatment goals, and need for post-acute services based on payer coverage, community resources, and patient preferences, and barriers to discharge 2. Coordinate with Social work, Care Navigation, and Utilization Review to arrange appropriate level of services according to patient's needs based on patient preference and payer coverage in collaboration with the physician and health care team 3. Address psychosocial, clinical, and financial barriers to discharge as identified in assessment in conjunction with the patient/family and health care team 4. Consult appropriate ancillary services (i.e.. PT/OT/ST, etc) as needed 5. Communicate with and update the patient/family, physician, and health care team regarding progress on the discharge plan 6. Identify discharge learning needs (meds, wound care, etc). 7. Arrange for needed discharge transportation as appropriate Outcome: Progressing Note: Evaluation of progress towards goal: discharge planning in progress, patient and patients family involved in planning Problem: Potential for Compromised Skin Integrity Goal: Skin integrity is maintained or improved Description: Patient's goal is: INTERVENTIONS 1. Perform initial skin assessment on admission and as needed 2. Turn patient every 2 hours and PRN 3. Relieve pressure to bony prominences 4. Avoid shearing 5. Keep skin clean and dry 6. Alternate a full bath with partial baths for elderly 7. Apply lotion/moisturizer on skin 8. Monitor patient's hygiene practices 9. Float heels 10. Collaborate with interdisciplinary team and initiate plans and interventions as needed Outcome: Progressing Note: Evaluation of progress towards goal: patients skin is assessed in the beginning and throughout the shift, patient skin is kept clean and dry, patient is a q2 turn Goal: Patient's nutritional intake is adequate Description: Patient's goal is: INTERVENTIONS 1. Assess and monitor food intake and supplements, patient food preferences, nausea, vomiting, labs, oral cavity (gums, teeth, tongue, mucosa), proper denture fit, and cultural beliefs 2. Monitor for signs of hypoglycemia and hyperglycemia 3. Collaborate with interdisciplinary team and initiate plan and interventions as ordered 4. Monitor patient's weight 5. Assist patient with meals/food selection 6. Assist patient with eating 7. Allow adequate time for meals 8. Provide pleasant environment during mealtime 9. Increase social contact during mealtimes 10. Plan activities to conserve energy 11. Encourage/perform oral hygiene as appropriate 12. Encourage patient to take dietary supplement as ordered 13. Collaborate with clinical digital analytics manager 14. Include patient/ patient's passenger relations representative in decisions related to nutrition Outcome: Progressing Note: Evaluation of progress towards goal: patient is level 5 diet, and a level 2 liquid no straws, patients has adequate nutritional intake Problem: Urinary Incontinence Goal: Perineal skin integrity is maintained or improved Description: INTERVENTIONS 1. Assess genitourinary system, perineal skin, labs (urinalysis), and history of incontinence to include past management, aggravating, and alleviating factors 2. Keep skin clean and dry 3. Apply skin protectant 4. Develop skin care regimen 5. Provide privacy when changing patients incontinence device to maintain their dignity 6. Consider placing an indwelling catheter 7. Collaborate with interdisciplinary team and initiate plans and interventions as needed Outcome: Progressing Note: Evaluation of progress towards goal: patient has urinary retention, currently has alexis catheter Problem: Moderate - High Risk Fall Score Description: García Fall Score of =/> 25 or indicated by [facility] Assessment Goal: Patient should be free from fall Description: Interventions: 1. [place] to environment 2. Hourly rounds addressing the 4 P's (Pain, Positioning, Possessions, Potty) 3. Clear area of hazards (spills, clutter, electrical cords, unnecessary equipment) 4. Place equipment (bed & TV controls, call light, phone, urinal) within reach 5. Encourage patient to wear glasses and hearing aides as appropriate 6. Maintain bed in lowest position 7. Lock wheels on bed/wheelchair 8. Provide adequate lighting, including night light 9. Assess need for additional bedding, food/fluids, pain med's prior to sleep/routinely 10. Provide gripper slippers or personal non-skid footwear 11. Teach patient and patient passenger relations representative to maintain environment for safety and engage in all aspects of fall prevention program 12. Remind patient to call for help before getting out of bed 13. Initiate bed/chair/exit alarms supportive devices as appropriate, (chair wedge, no-skid floor mat, raised edge mattress, hip protectors) 14. Locate patient bed assignment for optimal visualization 15. Evaluate and identify Safe Patient Handling Equipment needs 16. Provide supervision when out of bed or chair 17. Utilize gait belt as needed to assist with ambulation 18. Place adaptive equipment (cane, walker) within reach 19. Request patient passenger relations representative bring adaptive equipment/mobility aids from home or obtain and provide as needed 20. Consult pharmacy regarding effects of med's affecting mobility, cognition, and alternatives 21. Obtain physician order for PT if risk factors associated with mobility are present 22. Obtain physician order for OT as appropriate 23. Utilize diversional activities 24. Educate patient and patient passenger relations representative how to maintain a safe environment during visitation times (notify nurse prior to leaving bedside) 25. Consider appropriateness of medical or non-medical billing coordinator 26. Set up voiding schedule as appropriate (every 2 hours) Outcome: Progressing Note: Evaluation of progress towards goal: [employer]ager assessed pt fall precautions in the beginning and throughout shift. Pt room left free of clutter, pt has all belongings and call light within reach. Will continue to monitor. Problem: Neurosensory - Adult Goal: Achieves stable or improved neurological status Description: Patient's goal is: INTERVENTIONS 1. Assess for and report changes in neurological status 2. Initiate measures to prevent increased intracranial pressure 3. Maintain blood pressure and fluid volume within ordered parameters to optimize cerebral perfusion and minimize risk of hemorrhage 4. Monitor temperature, glucose, and sodium. Initiate appropriate interventions as ordered Outcome: Progressing Note: Evaluation of progress towards goal: patient is q4 neuro assessments, and waxes and wanes with mentation Problem: Pain Goal: Patient goal is pain score less than 4, able to rest, and participant in treatment plan as appropriate Description: INTERVENTIONS: 1. Encourage patient or legal passenger relations representative to report early pain and ask for pain medicine when needed 2. Assess pain using appropriate pain scale and include the scale used when documenting 3. Administer analgesics based on type and severity of pain and evaluate response within appropriate time frame 4. Implement non-pharmacological measures as appropriate and evaluate response 5. Consider cultural and social influences on pain and pain management 6. Notify LIP if interventions ineffective or patient reports new pain 7. Monitor vital signs including pulse ox, end-tidal CO2 based on pain intervention 8. Reassess pain per policy 9. Teach patient or legal passenger relations representative interventions for comforting Outcome: Progressing Note: Evaluation of progress towards goal: Patient assessed with appropriate pain scale and reports no pain at the moment. Patient encouraged to call out and to report if any new pain occurs. Will continue to assess the patient for pain while providing care. Problem: Safety Goal: Patient will be injury free during hospitalization Description: INTERVENTIONS: 1. Assess patient's risk for falls and implement fall prevention plan of care per policy 2. Provide and maintain a safe environment 3. Proper use of double Identifiers 4. Medication administration using the 5 rights 5. Hand hygiene 6. Specimens are labeled at the bedside 7. Instruct patient/ patient passenger relations representative about use of safety devices 8. Include patient/ patient passenger relations representative in decisions related to safety Outcome: Progressing Note: Evaluation of progress towards goal: Patient remains injury free while on the unit. Safe environment maintained; personal items and call light within reach; bed locked and in lowest position. Safety education reinforced with patient and/or family. Six rights of medication administration maintained. Will continue to monitor for further needs related to patient safety. Problem: Infection Goal: Absence of infection during hospitalization Description: INTERVENTIONS 1. Assess and monitor for signs and symptoms of infection. 2. Monitor lab/diagnostic results. 3. Monitor all insertion sites i.e., indwelling lines, tubes and drains. 4. Monitor endotracheal (as able) and nasal secretions for changes in amount and color. 5. Administer medications as ordered. 6. Instruct and encourage patient and family to use good hand hygiene technique. 7. Identify and instruct patient/patient passenger relations representative in use of appropriate isolation precautions for identified infection/symptoms. 8. Provide and discuss with patient/patient passenger relations representative on educational MDRO sheet. 9. Encourage and monitor nutritional status daily and consult digital analytics manager if indicated. 10. Implement neutropenic guidelines as needed. Outcome: Progressing Note: Evaluation of progress towards goal: Patient remains afebrile with absence of typical signs of infection such as redness, swelling, purulent drainage, etc. Labs remain within defined limits. Infection preventative measures maintained. Will continue to monitor patient for any signs or symptoms indicating infection while providing care. Problem: Knowledge Deficit Goal: Patient/patient passenger relations representative demonstrates understanding of disease process, treatment plan, medications, and discharge instructions Description: INTERVENTIONS 1. Complete learning assessment and assess knowledge base 2. Provide teaching at level of understanding 3. Provide teaching via preferred learning method(s) Outcome: Progressing Note: Evaluation of progress towards goal: Medications reviewed with and understood by patient. Patient updated on plan of care. Patient states understanding of discharge plan to SNF. Family/spouse are aware and accepting. Patient to have adequate support when discharged. Will continue plan of care and assess for further needs regarding above mentioned topics. Problem: Discharge Planning Goal: Discharge to post-acute care, other facility, or home with appropriate resources Description: Patient's goal is: INTERVENTIONS 1. Conduct assessment to determine patient/family and health care team treatment goals, and need for post-acute services based on payer coverage, community resources, and patient preferences, and barriers to discharge 2. Coordinate with Social work, Care Navigation, and Utilization Review to arrange appropriate level of services according to patient's needs based on patient preference and payer coverage in collaboration with the physician and health care team 3. Address psychosocial, clinical, and financial barriers to discharge as identified in assessment in conjunction with the patient/family and health care team 4. Consult appropriate ancillary services (i.e.. PT/OT/ST, etc) as needed 5. Communicate with and update the patient/family, physician, and health care team regarding progress on the discharge plan 6. Identify discharge learning needs (meds, wound care, etc). 7. Arrange for needed discharge transportation as appropriate Outcome: Progressing Note: Evaluation of progress towards goal: Patient is involved in discharge planning. Problem: Potential for Compromised Skin Integrity Goal: Skin integrity is maintained or improved Description: Patient's goal is: INTERVENTIONS 1. Perform initial skin assessment on admission and as needed 2. Turn patient every 2 hours and PRN 3. Relieve pressure to bony prominences 4. Avoid shearing 5. Keep skin clean and dry 6. Alternate a full bath with partial baths for elderly 7. Apply lotion/moisturizer on skin 8. Monitor patient's hygiene practices 9. Float heels 10. Collaborate with interdisciplinary team and initiate plans and interventions as needed Outcome: Progressing Note: Evaluation of progress towards goal: Patient is turned every 2 hours and PRN. Pressure is relieved on bony prominences and skin is kept clean and dry. Lotion/moisturizer is applied to skin as needed. Will continue interventions to maintain and to improve skin integrity. Goal: Patient's nutritional intake is adequate Description: Patient's goal is: INTERVENTIONS 1. Assess and monitor food intake and supplements, patient food preferences, nausea, vomiting, labs, oral cavity (gums, teeth, tongue, mucosa), proper denture fit, and cultural beliefs 2. Monitor for signs of hypoglycemia and hyperglycemia 3. Collaborate with interdisciplinary team and initiate plan and interventions as ordered 4. Monitor patient's weight 5. Assist patient with meals/food selection 6. Assist patient with eating 7. Allow adequate time for meals 8. Provide pleasant environment during mealtime 9. Increase social contact during mealtimes 10. Plan activities to conserve energy 11. Encourage/perform oral hygiene as appropriate 12. Encourage patient to take dietary supplement as ordered 13. Collaborate with clinical digital analytics manager 14. Include patient/ patient's passenger relations representative in decisions related to nutrition Outcome: Progressing Note: Evaluation of progress towards goal: Patient/patient's passenger relations representative is involved in decisions related to nutrition. Patient's food preferences, nausea, vomiting, labs, oral cavity (gums, teeth, tongue, mucosa), and cultural beliefs are assessed to ensure adequate intake. Food intake and weight is monitored. Adequate time is allowed for meals and a pleasant environment is provided during mealtimes. Patient is monitored for signs of hypoglycemia and hyperglycemia. Problem: Urinary Incontinence Goal: Perineal skin integrity is maintained or improved Description: INTERVENTIONS 1. Assess genitourinary system, perineal skin, labs (urinalysis), and history of incontinence to include past management, aggravating, and alleviating factors 2. Keep skin clean and dry 3. Apply skin protectant 4. Develop skin care regimen 5. Provide privacy when changing patients incontinence device to maintain their dignity 6. Consider placing an indwelling catheter 7. Collaborate with interdisciplinary team and initiate plans and interventions as needed Outcome: Progressing Note: Evaluation of progress towards goal: Patient's perineal skin is kept clean and dry. Privacy is provided when changing patient's incontinence device to maintain their dignity. Problem: Moderate - High Risk Fall Score Description: García Fall Score of =/> 25 or indicated by [facility] Assessment Goal: Patient should be free from fall Description: Interventions: 1. [place] to environment 2. Hourly rounds addressing the 4 P's (Pain, Positioning, Possessions, Potty) 3. Clear area of hazards (spills, clutter, electrical cords, unnecessary equipment) 4. Place equipment (bed & TV controls, call light, phone, urinal) within reach 5. Encourage patient to wear glasses and hearing aides as appropriate 6. Maintain bed in lowest position 7. Lock wheels on bed/wheelchair 8. Provide adequate lighting, including night light 9. Assess need for additional bedding, food/fluids, pain med's prior to sleep/routinely 10. Provide gripper slippers or personal non-skid footwear 11. Teach patient and patient passenger relations representative to maintain environment for safety and engage in all aspects of fall prevention program 12. Remind patient to call for help before getting out of bed 13. Initiate bed/chair/exit alarms supportive devices as appropriate, (chair wedge, no-skid floor mat, raised edge mattress, hip protectors) 14. Locate patient bed assignment for optimal visualization 15. Evaluate and identify Safe Patient Handling Equipment needs 16. Provide supervision when out of bed or chair 17. Utilize gait belt as needed to assist with ambulation 18. Place adaptive equipment (cane, walker) within reach 19. Request patient passenger relations representative bring adaptive equipment/mobility aids from home or obtain and provide as needed 20. Consult pharmacy regarding effects of med's affecting mobility, cognition, and alternatives 21. Obtain physician order for PT if risk factors associated with mobility are present 22. Obtain physician order for OT as appropriate 23. Utilize diversional activities 24. Educate patient and patient passenger relations representative how to maintain a safe environment during visitation times (notify nurse prior to leaving bedside) 25. Consider appropriateness of medical or non-medical billing coordinator 26. Set up voiding schedule as appropriate (every 2 hours) Outcome: Progressing Note: Evaluation of progress towards goal: Patient remains free from falls while on the unit. Safe environment maintained. Non-skid socks worn while ambulating. Personal items and call light within reach. Bed in lowest position and locked. Side rails up x2. Patient evaluated for use of safe patient handling equipment. Fall prevention education reinforced with patient. Will continue to assess patient's needs regarding fall prevention while providing care. Problem: Neurosensory - Adult Goal: Achieves stable or improved neurological status Description: Patient's goal is: INTERVENTIONS 1. Assess for and report changes in neurological status 2. Initiate measures to prevent increased intracranial pressure 3. Maintain blood pressure and fluid volume within ordered parameters to optimize cerebral perfusion and minimize risk of hemorrhage 4. Monitor temperature, glucose, and sodium. Initiate appropriate interventions as ordered Outcome: Progressing Note: Evaluation of progress towards goal: Patient's level of consciousness, motor function, sensory function, and level of assistance needed for ADLs are assessed as indicated/ordered. Will report any changes from baseline. Patient/family instructed to call for assistance with activity based on assessment. Plan of care ongoing. Problem: Pain Goal: Patient goal is pain score less than 4, able to rest, and participant in treatment plan as appropriate Description: INTERVENTIONS: 1. Encourage patient or legal passenger relations representative to report early pain and ask for pain medicine when needed 2. Assess pain using appropriate pain scale and include the scale used when documenting 3. Administer analgesics based on type and severity of pain and evaluate response within appropriate time frame 4. Implement non-pharmacological measures as appropriate and evaluate response 5. Consider cultural and social influences on pain and pain management 6. Notify LIP if interventions ineffective or patient reports new pain 7. Monitor vital signs including pulse ox, end-tidal CO2 based on pain intervention 8. Reassess pain per policy 9. Teach patient or legal passenger relations representative interventions for comforting Outcome: Progressing Note: Evaluation of progress towards goal: Denies pain at this time; will continue to monitor Problem: Safety Goal: Patient will be injury free during hospitalization Description: INTERVENTIONS: 1. Assess patient's risk for falls and implement fall prevention plan of care per policy 2. Provide and maintain a safe environment 3. Proper use of double Identifiers 4. Medication administration using the 5 rights 5. Hand hygiene 6. Specimens are labeled at the bedside 7. Instruct patient/ patient passenger relations representative about use of safety devices 8. Include patient/ patient passenger relations representative in decisions related to safety Outcome: Progressing Note: Evaluation of progress towards goal: Patient free from injury; bed to low position; skid free socks applied; call light in reach Problem: Knowledge Deficit Goal: Patient/patient passenger relations representative demonstrates understanding of disease process, treatment plan, medications, and discharge instructions Description: INTERVENTIONS 1. Complete learning assessment and assess knowledge base 2. Provide teaching at level of understanding 3. Provide teaching via preferred learning method(s) Outcome: Progressing Note: Evaluation of progress towards goal: Patient verbalizes understanding of POC; needs reinforcement Problem: Neurosensory - Adult Goal: Achieves stable or improved neurological status Description: Patient's goal is: INTERVENTIONS 1. Assess for and report changes in neurological status 2. Initiate measures to prevent increased intracranial pressure 3. Maintain blood pressure and fluid volume within ordered parameters to optimize cerebral perfusion and minimize risk of hemorrhage 4. Monitor temperature, glucose, and sodium. Initiate appropriate interventions as ordered Outcome: Progressing Note: Evaluation of progress towards goal: pt disoriented to place, person; calm and pleasant, left sided weakness; no new neuro deficits Problem: Pain Goal: Patient goal is pain score less than 4, able to rest, and participant in treatment plan as appropriate Description: INTERVENTIONS: 1. Encourage patient or legal passenger relations representative to report early pain and ask for pain medicine when needed 2. Assess pain using appropriate pain scale and include the scale used when documenting 3. Administer analgesics based on type and severity of pain and evaluate response within appropriate time frame 4. Implement non-pharmacological measures as appropriate and evaluate response 5. Consider cultural and social influences on pain and pain management 6. Notify LIP if interventions ineffective or patient reports new pain 7. Monitor vital signs including pulse ox, end-tidal CO2 based on pain intervention 8. Reassess pain per policy 9. Teach patient or legal passenger relations representative interventions for comforting Outcome: Progressing Note: Evaluation of progress towards goal: Patient assessed with appropriate pain scale and reports no pain at the moment. Patient encouraged to call out and to report if any new pain occurs. Will continue to assess the patient for pain while providing care. Problem: Safety Goal: Patient will be injury free during hospitalization Description: INTERVENTIONS: 1. Assess patient's risk for falls and implement fall prevention plan of care per policy 2. Provide and maintain a safe environment 3. Proper use of double Identifiers 4. Medication administration using the 5 rights 5. Hand hygiene 6. Specimens are labeled at the bedside 7. Instruct patient/ patient passenger relations representative about use of safety devices 8. Include patient/ patient passenger relations representative in decisions related to safety Outcome: Progressing Note: Evaluation of progress towards goal: Patient remains injury free while on the unit. Safe environment maintained; personal items and call light within reach; bed locked and in lowest position. Safety education reinforced with patient and/or family. Six rights of medication administration maintained. Will continue to monitor for further needs related to patient safety. Problem: Infection Goal: Absence of infection during hospitalization Description: INTERVENTIONS 1. Assess and monitor for signs and symptoms of infection. 2. Monitor lab/diagnostic results. 3. Monitor all insertion sites i.e., indwelling lines, tubes and drains. 4. Monitor endotracheal (as able) and nasal secretions for changes in amount and color. 5. Administer medications as ordered. 6. Instruct and encourage patient and family to use good hand hygiene technique. 7. Identify and instruct patient/patient passenger relations representative in use of appropriate isolation precautions for identified infection/symptoms. 8. Provide and discuss with patient/patient passenger relations representative on educational MDRO sheet. 9. Encourage and monitor nutritional status daily and consult digital analytics manager if indicated. 10. Implement neutropenic guidelines as needed. Outcome: Progressing Note: Evaluation of progress towards goal: Patient remains afebrile with absence of typical signs of infection such as redness, swelling, purulent drainage, etc. Labs remain within defined limits. Infection preventative measures maintained. Will continue to monitor patient for any signs or symptoms indicating infection while providing care. \ Problem: Knowledge Deficit Goal: Patient/patient passenger relations representative demonstrates understanding of disease process, treatment plan, medications, and discharge instructions Description: INTERVENTIONS 1. Complete learning assessment and assess knowledge base 2. Provide teaching at level of understanding 3. Provide teaching via preferred learning method(s) Outcome: Progressing Note: Evaluation of progress towards goal: Medications reviewed with and understood by patient. Patient updated on plan of care. Patient states understanding of discharge plan to SNF. Family/spouse are aware and accepting. Patient to have adequate support when discharged. Will continue plan of care and assess for further needs regarding above mentioned topics. Problem: Discharge Planning Goal: Discharge to post-acute care, other facility, or home with appropriate resources Description: Patient's goal is: INTERVENTIONS 1. Conduct assessment to determine patient/family and health care team treatment goals, and need for post-acute services based on payer coverage, community resources, and patient preferences, and barriers to discharge 2. Coordinate with Social work, Care Navigation, and Utilization Review to arrange appropriate level of services according to patient's needs based on patient preference and payer coverage in collaboration with the physician and health care team 3. Address psychosocial, clinical, and financial barriers to discharge as identified in assessment in conjunction with the patient/family and health care team 4. Consult appropriate ancillary services (i.e.. PT/OT/ST, etc) as needed 5. Communicate with and update the patient/family, physician, and health care team regarding progress on the discharge plan 6. Identify discharge learning needs (meds, wound care, etc). 7. Arrange for needed discharge transportation as appropriate Outcome: Progressing Note: Evaluation of progress towards goal: Patient is involved in discharge planning. Problem: Potential for Compromised Skin Integrity Goal: Skin integrity is maintained or improved Description: Patient's goal is: INTERVENTIONS 1. Perform initial skin assessment on admission and as needed 2. Turn patient every 2 hours and PRN 3. Relieve pressure to bony prominences 4. Avoid shearing 5. Keep skin clean and dry 6. Alternate a full bath with partial baths for elderly 7. Apply lotion/moisturizer on skin 8. Monitor patient's hygiene practices 9. Float heels 10. Collaborate with interdisciplinary team and initiate plans and interventions as needed Outcome: Progressing Note: Evaluation of progress towards goal: Patient is turned every 2 hours and PRN. Pressure is relieved on bony prominences and skin is kept clean and dry. Lotion/moisturizer is applied to skin as needed. Will continue interventions to maintain and to improve skin integrity. Goal: Patient's nutritional intake is adequate Description: Patient's goal is: INTERVENTIONS 1. Assess and monitor food intake and supplements, patient food preferences, nausea, vomiting, labs, oral cavity (gums, teeth, tongue, mucosa), proper denture fit, and cultural beliefs 2. Monitor for signs of hypoglycemia and hyperglycemia 3. Collaborate with interdisciplinary team and initiate plan and interventions as ordered 4. Monitor patient's weight 5. Assist patient with meals/food selection 6. Assist patient with eating 7. Allow adequate time for meals 8. Provide pleasant environment during mealtime 9. Increase social contact during mealtimes 10. Plan activities to conserve energy 11. Encourage/perform oral hygiene as appropriate 12. Encourage patient to take dietary supplement as ordered 13. Collaborate with clinical digital analytics manager 14. Include patient/ patient's passenger relations representative in decisions related to nutrition Outcome: Progressing Note: Evaluation of progress towards goal: Patient/patient's passenger relations representative is involved in decisions related to nutrition. Patient's food preferences, nausea, vomiting, labs, oral cavity (gums, teeth, tongue, mucosa), and cultural beliefs are assessed to ensure adequate intake. Food intake and weight is monitored. Adequate time is allowed for meals and a pleasant environment is provided during mealtimes. Patient is monitored for signs of hypoglycemia and hyperglycemia. Problem: Urinary Incontinence Goal: Perineal skin integrity is maintained or improved Description: INTERVENTIONS 1. Assess genitourinary system, perineal skin, labs (urinalysis), and history of incontinence to include past management, aggravating, and alleviating factors 2. Keep skin clean and dry 3. Apply skin protectant 4. Develop skin care regimen 5. Provide privacy when changing patients incontinence device to maintain their dignity 6. Consider placing an indwelling catheter 7. Collaborate with interdisciplinary team and initiate plans and interventions as needed Outcome: Progressing Note: Evaluation of progress towards goal: Patient's perineal skin is kept clean and dry. Privacy is provided when changing patient's incontinence device to maintain their dignity. Problem: Moderate - High Risk Fall Score Description: García Fall Score of =/> 25 or indicated by [facility] Assessment Goal: Patient should be free from fall Description: Interventions: 1. [place] to environment 2. Hourly rounds addressing the 4 P's (Pain, Positioning, Possessions, Potty) 3. Clear area of hazards (spills, clutter, electrical cords, unnecessary equipment) 4. Place equipment (bed & TV controls, call light, phone, urinal) within reach 5. Encourage patient to wear glasses and hearing aides as appropriate 6. Maintain bed in lowest position 7. Lock wheels on bed/wheelchair 8. Provide adequate lighting, including night light 9. Assess need for additional bedding, food/fluids, pain med's prior to sleep/routinely 10. Provide gripper slippers or personal non-skid footwear 11. Teach patient and patient passenger relations representative to maintain environment for safety and engage in all aspects of fall prevention program 12. Remind patient to call for help before getting out of bed 13. Initiate bed/chair/exit alarms supportive devices as appropriate, (chair wedge, no-skid floor mat, raised edge mattress, hip protectors) 14. Locate patient bed assignment for optimal visualization 15. Evaluate and identify Safe Patient Handling Equipment needs 16. Provide supervision when out of bed or chair 17. Utilize gait belt as needed to assist with ambulation 18. Place adaptive equipment (cane, walker) within reach 19. Request patient passenger relations representative bring adaptive equipment/mobility aids from home or obtain and provide as needed 20. Consult pharmacy regarding effects of med's affecting mobility, cognition, and alternatives 21. Obtain physician order for PT if risk factors associated with mobility are present 22. Obtain physician order for OT as appropriate 23. Utilize diversional activities 24. Educate patient and patient passenger relations representative how to maintain a safe environment during visitation times (notify nurse prior to leaving bedside) 25. Consider appropriateness of medical or non-medical billing coordinator 26. Set up voiding schedule as appropriate (every 2 hours) Outcome: Progressing Note: Evaluation of progress towards goal: Patient remains free from falls while on the unit. Safe environment maintained. Non-skid socks worn while ambulating. Personal items and call light within reach. Bed in lowest position and locked. Side rails up x2. Patient evaluated for use of safe patient handling equipment. Fall prevention education reinforced with patient. Will continue to assess patient's needs regarding fall prevention while providing care. Problem: Neurosensory - Adult Goal: Achieves stable or improved neurological status Description: Patient's goal is: INTERVENTIONS 1. Assess for and report changes in neurological status 2. Initiate measures to prevent increased intracranial pressure 3. Maintain blood pressure and fluid volume within ordered parameters to optimize cerebral perfusion and minimize risk of hemorrhage 4. Monitor temperature, glucose, and sodium. Initiate appropriate interventions as ordered Outcome: Progressing Note: Evaluation of progress towards goal: Patient's level of consciousness, motor function, sensory function, and level of assistance needed for ADLs are assessed as indicated/ordered. Will report any changes from baseline. Patient/family instructed to call for assistance with activity based on assessment. Plan of care ongoing. DISCHARGE PLANNING NOTE Prior auth submitted to: [employer] Via: [employer] On behalf of : [facility] (P#: ; F#: ) Ref# [id number] DISCHARGE PLANNING NOTE Case discussed in daily transition rounds and chart reviewed by CN. Barriers to discharge include IV Decadron, IV Keppra, D2.5, IV Mag Discharge Plan remains: return to [facility] SNF. PT/OT recommending SNF. Social work sent therapy evaluations to [facility] and they are ready to accept patient at discharge. Social work task [facility] to start precert. Social work contacted daughter to provide update and she is agreeable to transition plan. CN will continue to follow and is available should any further needs arise. - RAMIREZ COTTO 09/26/24 9:33 AM Problem: Pain Goal: Patient goal is pain score less than 4, able to rest, and participant in treatment plan as appropriate Description: INTERVENTIONS: 1. Encourage patient or legal passenger relations representative to report early pain and ask for pain medicine when needed 2. Assess pain using appropriate pain scale and include the scale used when documenting 3. Administer analgesics based on type and severity of pain and evaluate response within appropriate time frame 4. Implement non-pharmacological measures as appropriate and evaluate response 5. Consider cultural and social influences on pain and pain management 6. Notify LIP if interventions ineffective or patient reports new pain 7. Monitor vital signs including pulse ox, end-tidal CO2 based on pain intervention 8. Reassess pain per policy 9. Teach patient or legal passenger relations representative interventions for comforting Outcome: Progressing Note: Evaluation of progress towards goal: Denies pain at this time; will continue to monitor Problem: Safety Goal: Patient will be injury free during hospitalization Description: INTERVENTIONS: 1. Assess patient's risk for falls and implement fall prevention plan of care per policy 2. Provide and maintain a safe environment 3. Proper use of double Identifiers 4. Medication administration using the 5 rights 5. Hand hygiene 6. Specimens are labeled at the bedside 7. Instruct patient/ patient passenger relations representative about use of safety devices 8. Include patient/ patient passenger relations representative in decisions related to safety Outcome: Progressing Note: Evaluation of progress towards goal: Patient free from injury; bed to low position; skid free socks applied; call light in reach Problem: Knowledge Deficit Goal: Patient/patient passenger relations representative demonstrates understanding of disease process, treatment plan, medications, and discharge instructions Description: INTERVENTIONS 1. Complete learning assessment and assess knowledge base 2. Provide teaching at level of understanding 3. Provide teaching via preferred learning method(s) Outcome: Progressing Note: Evaluation of progress towards goal: Patient verbalizes understanding of POC Problem: Potential for Compromised Skin Integrity Goal: Skin integrity is maintained or improved Description: Patient's goal is: INTERVENTIONS 1. Perform initial skin assessment on admission and as needed 2. Turn patient every 2 hours and PRN 3. Relieve pressure to bony prominences 4. Avoid shearing 5. Keep skin clean and dry 6. Alternate a full bath with partial baths for elderly 7. Apply lotion/moisturizer on skin 8. Monitor patient's hygiene practices 9. Float heels 10. Collaborate with interdisciplinary team and initiate plans and interventions as needed Outcome: Progressing Note: Evaluation of progress towards goal: excoriation to inner thighs, gluteal folds and left buttock;pt gets turned every 2 hours Occupational Therapy Evaluation Discharge Recommendations OT Recommendations : Senior Living Facility SNF/ECF Comments: Recommend SNF to inc safety and IND in ADLs and functional mobility. Pt is a high fall rsk 6 Clicks: Daily Activity Putting on and taking off regular lower body clothing?: Total Bathing (including washing, rinsing, drying)?: A lot Toileting, which includes using toilet, bedpan or urinal?: Total Putting on and taking off regular upper body clothing?: A lot Taking care of personal grooming such as brushing teeth?: A lot Eating meals?: A lot Scoring Daily Activity Raw Score: 10 CMS G Code Modifier: CL Therapy Plan Need for skilled Occupational Therapy to address deficits in ADL independence and functional mobility due to a status decline resulting from deconditioning and altered mental status Pt is 54 y/o female admitted 5/2/25 from SNF, initially went to [facility] ED for altered mental status, 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 CT B- Decreased MLS and post op changes. Past Medical History: Diagnosis Date MS (multiple sclerosis) ([facility]) 2012 Past Surgical History: Procedure Laterality Date CARPAL TUNNEL RELEASE Left SHOULDER ARTHROSCOPY W/ ROTATOR CUFF REPAIR Left SYNAPTIVE CRANIOTOMY EXCISION TUMOR Right 09/23/2024 Performed by Jair Espinal MD at [facility] OT Treatment/Interventions: Functional transfer training, ADL retraining, UE strengthening/ROM, Endurance training, Cognitive reorientation, Patient/family training, Equipment eval/education, Balance, Bed mobility, Gait training, Compensatory technique education, Functional activities OT Frequency: 5-6days/week OT Duration: LOS Assessment Patient Assessment Therapy Problem List: Decreased ADL status, Decreased balance, Decreased cognition, Decreased endurance, Decreased high-level ADLs, Decreased mobility, Decreased fine motor, Decreased self-care trans, Decreased safe judgement during ADL, Decreased UE strength, Decreased LE strength Patient Response to Treatment: Tolerated evaluation without adverse reaction Mood/Affect: Impulsive Rehab Prognosis: Good, With continued OT status post acute discharge Visit RN Communication: Yes Medical Record Reviewed: Yes OT Type of Visit: Evaluation Precautions Activity: early mobility-pass Equipment: gait belt, skinny stedy, arterial line, alexis, repositioning sling Telemetry/Investment Associate: Yes Oxygen Used: room air Other: high fall risk, AMS, h/o MS with L sided pain/weakness/numbness, very limited ROM LUE with recent L shoulder surgery Pain Assessment Pain Assessment: 0-10 Pain Score: 6 Pain Location: Leg, Arm Pain Orientation: Left Pain Intervention(s): Repositioned, Environmental changes, Distraction Response to Interventions: Quiet, No grimacing Home Living Type of Home: House Home Layout: One level Stairs to Enter: 1 Hand Rails: None Stairs in Home: 0 Bathroom Shower/Tub: Walk-in shower Bathroom Toilet: Standard Bathroom Equipment: Shower chair, Grab bars in shower, Hand-held shower Home Equipment: Cane, Quad cane Other : Denies recent falls. Reports having been at a facility since recent admit last month. 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 Total A required for pericare then pt found to be voiding further. Pt assisted onto bed seth to continue to void at end of session with RN notified as pt continuously voiding. Very limited by weakness, fatigue, N/T on L side, chronic pain, and AMS. Hearing / Speech / Vision Hearing: Within Functional Limits Speech: Within Functional Limits Current Vision: No visual deficits Cognition Overall Cognitive Status: Exceptions to Within Functional Limits Attention Span: Attends with cues to redirect, Difficulty attending to directions Memory: Decreased short term memory, Decreased recall of recent events Orientation Level: Oriented to place, Oriented to person, Oriented to time (flucuating situation) Following Commands: Follows one step commands with increased time, Follows one step commands with repetition Safety Judgment: Decreased awareness of need for safety, Decreased awareness of need for assistance Awareness of Errors: Decreased awareness of errors Insight of Deficits: Decreased awareness of deficits Problem Solving: Assistance required to identify errors made, Assistance required to generate solutions, Assistance required to implement solutions Interfering Components: Attention to detail, Attention - sustained, Working memory, Processing speed Other: Pt is very impulsive with poor safety awareness. Pt perseverating on wanting pizza, needing to talk to her dtr, and needing to see her grandbabies . Pt keeps referring to OT and PT as Whit . At OT entrance pt attempting to bite her IV and rip it out of her arm d/t being hungry per pt report. RN notified and frequent cues to redirect attention Sensation Overall Sensation Status: Exceptions to Within Functional Limits (Baseline N/T L side from MS) Bed Mobility Rolling: Mod assist, Left, Right Supine to Sit: Max assist (x2) Sit to Supine: Max assist (x2) Other: Pt rolled L/R with use of rail when RUE- mod A needed to achieve full sidelying especially d/t mostly nonfunctional LUE. Supine>sit from elevated HOB with use of rail and max A x2 for trunk elevation and advancing BLE over EOB. Pt leaning heavily posteriorly and not self correcting despite cueing. Denied dizziness but struggling to maintain sitting balance. Returned to supine end of session with max A x2 and needs in reach. Bed alarm on. Transfers Other: Attempted STS from EOB with Max Ax 2 in skinny stedy- achieved minimal clearance of buttocks from EOB. Gait Other: not appropriate- rec maxi stephie for nursing Balance Balance Evaluation: Exceptions to Functional Limits Sitting Balance: Static: Poor Sitting Balance: Dynamic: Poor Other: Pt seated EOB x 10 mins with initial max A to sit progressing to flucuating min-CGA once midline attained. Pt initially losing balance in all planes. Pt attempting to reach outside CAIT with RUE (dec accuracy reaching in L visual field.). Max cues to correct posture/come to midline RUE Assessment: (gross 4-/5) LUE Assessment: (minimal tolerance for PROM and only wiggling digits on L hand/not functionally grasping.) RLE Assessment: (see PT eval) LLE Assessment: (see PT eval) Activity Tolerance Endurance: Tolerates >30 minutes activity with rest breaks Other: Rest breaks prn d/t fatigue/weakness/chronic pain/AMS Plan Occupational Therapy Care Plan Occupational Therapy Care Plan (Active) Template: OT - Occupational Therapy Problem: Activity Tolerance Dates: Start: 09/25/24 Disciplines: OT Goal: Tolerate > 30 minutes of activity WITH rest breaks Dates: Start: 09/25/24 Expected End: 10/30/24 Description: Goal Description: Disciplines: OT Problem: Bed Mobility Dates: Start: 09/25/24 Disciplines: OT Goal: Patient will perform bed mobility with Contact Guard Dates: Start: 09/25/24 Expected End: 10/30/24 Description: Goal Description: Disciplines: OT Problem: Cognition Dates: Start: 09/25/24 Disciplines: OT Goal: Improve cognition Dates: Start: 09/25/24 Expected End: 10/30/24 Description: Pt will demo improved safety awareness during tx sessions as evidenced by lack of need for vc's for safety to increase independence in all functional activity. Disciplines: OT Problem: Functional Mobility Dates: Start: 09/25/24 Disciplines: OT Goal: Patient will perform functional mobility with Minimum Assist Dates: Start: 09/25/24 Expected End: 10/30/24 Description: Goal Description: Disciplines: OT Problem: Other (Customize) Dates: Start: 09/25/24 Disciplines: OT Goal: Improve Dates: Start: 09/25/24 Expected End: 10/30/24 Description: Pt will demo set up level with all UB ADLs using AE prn to facilitate return to PLOF. Disciplines: OT Problem: Other (Customize) Dates: Start: 09/25/24 Disciplines: OT Goal: Improve Dates: Start: 09/25/24 Expected End: 10/30/24 Description: Pt will demo Min A level or better with all LB ADLs Disciplines: OT Problem: ROM Dates: Start: 09/25/24 Disciplines: OT Goal: Improve ROM Dates: Start: 09/25/24 Expected End: 10/30/24 Description: Of extremity/ location:LUE all joint as tolerated To facilitate: to inc IND in ADLs Disciplines: OT Problem: Sitting Balance Dates: Start: 09/25/24 Disciplines: OT Goal: Improve balance to good Dates: Start: 09/25/24 Expected End: 10/30/24 Description: Static Dynamic Disciplines: OT Problem: Standing Balance Dates: Start: 09/25/24 Disciplines: OT Goal: Improve balance to fair Dates: Start: 09/25/24 Expected End: 10/30/24 Description: Static Dynamic Disciplines: OT Problem: Strength Dates: Start: 09/25/24 Disciplines: OT Goal: Improve strength Dates: Start: 09/25/24 Expected End: 10/30/24 Description: Of extremity/ location: RUE as tolerated To facilitate: inc IND in ADLs Disciplines: OT Problem: Transfers Dates: Start: 09/25/24 Disciplines: OT Goal: Patient will perform transfers with Minimum Assist Dates: Start: 09/25/24 Expected End: 10/30/24 Description: Goal Description: Disciplines: OT Occupational Therapy Care Plan (Resolved) There are no resolved problems. Principal Problem: Altered mental status, unspecified altered mental status type Active Problems: Generalized anxiety disorder with panic attacks Hyperlipidemia, acquired Multiple sclerosis ([facility]) LORENZO (obstructive sleep apnea) Primary hypertension Depression, unspecified Dysphagia, oropharyngeal phase Physical Therapy Evaluation Discharge Recommendations PT Recommendations: Senior Living Facility SNF/ECF Comments: due to decreased functional independence, inability to care for self, high fall risk 6 Clicks: Basic Mobility Turning from your back to your side while in a flat bed without using bed rails?: A lot Moving from lying on your back to sitting on side of flat bed without using bed rails?: A lot Moving to and from bed to a chair (including w/c)?: Total Standing up from a chair using your arms (e.g. 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 CT B- Decreased MLS and post op changes. Past Medical History: Diagnosis Date MS (multiple sclerosis) ([facility]) 2012 Past Surgical History: Procedure Laterality Date CARPAL TUNNEL RELEASE Left SHOULDER ARTHROSCOPY W/ ROTATOR CUFF REPAIR Left SYNAPTIVE CRANIOTOMY EXCISION TUMOR Right 09/23/2024 Performed by Jair Espinal MD at [facility] PT Treatment/Interventions: Functional transfer training, LE strengthening/ROM, Endurance training, Equipment eval/education, Balance, Stair training, Bed mobility, Gait training, Compensatory technique education, Functional activities, Neuromuscular reeducation PT Frequency: 4-5days/week PT Duration: until goals met Patient Response to Treatment: Tolerated evaluation without adverse reaction Assessment Patient Assessment Therapy Problem List: Decreased balance, Decreased endurance, Decreased mobility, Decreased self-care trans, Decreased LE strength Patient Response to Treatment: Tolerated evaluation without adverse reaction Mood/Affect: Flat Rehab Prognosis: Good, With continued PT status post acute discharge Visit RN Communication: Yes Medical Record Reviewed: Yes PT Type of Visit: Evaluation Precautions Activity: early mobility, pass Equipment: gait belt, skinny stedy, arterial line, alexis Telemetry/Investment Associate: Yes Oxygen Used: room air Other: high fall risk, confusion--attempted to pull IV out with her teeth--RN updated, MS with left sided deficits, s/p crani Pain Assessment Pain Assessment: 0-10 Pain Score: 6 Pain Location: Leg, Arm Pain Orientation: Left Pain Intervention(s): Repositioned Response to Interventions: Pain unchanged Home Living Type of Home: House Home Layout: One level Stairs to Enter: 1 Bathroom Shower/Tub: Walk-in shower Bathroom Toilet: Standard Bathroom Equipment: Shower chair, Grab bars in shower, Hand-held shower Home Equipment: Cane, Quad cane Other : pt reports walking with cane few months ago, has been at SNF before this admit Prior Function Lives With: Son Receives Help From: Family (son works nights) Level of Mobility: Independent with ADLs and functional transfers or gait Homemaking Assistance: Needs assistance Other: poor historian, asking for pizza and calling report writer whit, pt tried to pull out IV with teeth so she could get pizza Hearing / Speech / Vision Hearing: Within Functional Limits Speech: Within Functional Limits Cognition Overall Cognitive Status: Exceptions to Within Functional Limits Arousal/Alertness: Appropriate responses to stimuli Attention Span: Attends with cues to redirect, Difficulty attending to directions Memory: Decreased short term memory, Decreased recall of recent events Orientation Level: Oriented to person Following Commands: Follows one step commands with increased time, Follows one step commands with repetition Safety Judgment: Decreased awareness of need for safety, Decreased awareness of need for assistance Awareness of Errors: Assistance required to correct errors made, Assistance required to identify errors made Insight of Deficits: Not aware of deficits Problem Solving: Assistance required to implement solutions, Assistance required to generate solutions, Assistance required to identify errors made Other: poor insight into deficits Sensation Overall Sensation Status: (appears diminished left UE/LE) Perception / Proprioception Overall Status: Exceptions to Within Functional Limits Inattention/Neglect: Cues to maintain midline in sitting, Cues to maintain midline in standing, Cues to attend to left side of body Perseveration: Perseverates during conversation Proprioception: Partial deficits in the LLE, Severe deficits in the LUE Bed Mobility Rolling: Max assist, Left (assist for pericare then bed seth) Supine to Sit: Max assist (max x 2) Sit to Supine: Max assist (max x 2) Other: increased time and effort, poor awareness of left side of bed and difficulty getting trunk to upright. pt leans posteriorly and to left. pt perform bed mobility with HOB elevted. pt in bed with call light in reach onbed seth. RN aware Transfers Sit to Stand: Unable to assess Other: attempted with skinny moran but pt unable to get buttocks off bed with max x 2 assist Gait Other: unable due to weakness Balance Balance Evaluation: Exceptions to Functional Limits Sitting Balance: Static: Poor Sitting Balance: Dynamic: Poor Other: pt leans posteriorly and left then to right in sitting, requires max assist initally then min to mod assist to maintain balance edge of bed x 10 minutes total RUE Assessment: Within Functional Limits LUE Assessment: (0/5) RLE Assessment: (grossly 3+/5) LLE Assessment: (ankle 2/5, knee 3-/5, hip 2/5) Activity Tolerance Endurance: Tolerates 30 minutes activity with rest breaks Other: limited by weakness and proprioception Plan Physical Therapy Care Plan Physical Therapy Care Plan (Active) Template: PT - Physical Therapy Problem: Activity Tolerance Dates: Start: 09/25/24 Disciplines: PT Goal: Tolerate 30 minutes of activity WITH rest breaks Dates: Start: 09/25/24 Expected End: 10/20/24 Description: Goal Description: Pt to complete 20 reps exercise to improve functional strength and activity tolerance Disciplines: PT Problem: Bed Mobility Dates: Start: 09/25/24 Disciplines: PT Goal: Patient will perform bed mobility with Minimum Assist Dates: Start: 09/25/24 Expected End: 10/20/24 Description: Goal Description: min x 2 Disciplines: PT Problem: Sitting Balance Dates: Start: 09/25/24 Disciplines: PT Goal: Improve balance to good Dates: Start: 09/25/24 Expected End: 10/20/24 Description: Static Dynamic to reduce risk of falls during ADL Disciplines: PT Problem: Standing Balance Dates: Start: 09/25/24 Disciplines: PT Goal: Improve balance to fair Dates: Start: 09/25/24 Expected End: 10/20/24 Description: Static fair- To reduce risk of falls during gait/transfers Dynamic poor Disciplines: PT Problem: Strength Dates: Start: 09/25/24 Disciplines: PT Goal: Improve strength Dates: Start: 09/25/24 Expected End: 10/20/24 Description: Of extremity/ location: left lE 3+/5, right LE 4/5 To facilitate: functional independence Disciplines: PT Problem: Transfers Dates: Start: 09/25/24 Disciplines: PT Goal: Patient will perform transfers with Minimum Assist Dates: Start: 09/25/24 Expected End: 10/20/24 Description: Goal Description: min x 2 Disciplines: PT Physical Therapy Care Plan (Resolved) There are no resolved problems. Principal Problem: Altered mental status, unspecified altered mental status type Active Problems: Generalized anxiety disorder with panic attacks Hyperlipidemia, acquired Multiple sclerosis ([facility]) LORENZO (obstructive sleep apnea) Primary hypertension Depression, unspecified Dysphagia, oropharyngeal phase Ongoing Assessment for Discharge Needs Reviewed discharge milestones and patient needs related to discharge plan. Current estimated discharge date of September 25, 2024 has been reviewed by treatment team. Ongoing Assessment for Discharge Needs Flowsheet Row Most Recent Value Services Requested Patient expects to be discharged to: SNF Discharge Disposition SNF SNF Name [facility] Phone: [facility] SNF Accepted? Yes Does the patient need discharge transportation arranged? Yes Transportation Arranged Ambulance Patient choice offered Yes List Provided Patient declined Patient Declined Active with Provider Case discussed in daily transition rounds and chart reviewed by CN. Barriers to discharge include PT/OT to see, alexis, wounds(skin tears), monitoring neuro status. Discharge Plan remains: [facility]. Tasked [facility] to send updated clinical notes. Will need PT/OT to see before we can submit for auth. CN reached out to therapy and was told patient is on list to be seen today. . CN will continue to follow and is available should any further needs arise. - Manjinder Suresh RN 09/25/24 2:25 PM DISCHARGE PLANNING NOTE Updates to [facility] (P#: ; F#: ) Problem: Pain Goal: Patient goal is pain score less than 4, able to rest, and participant in treatment plan as appropriate Description: INTERVENTIONS: 1. Encourage patient or legal passenger relations representative to report early pain and ask for pain medicine when needed 2. Assess pain using appropriate pain scale and include the scale used when documenting 3. Administer analgesics based on type and severity of pain and evaluate response within appropriate time frame 4. Implement non-pharmacological measures as appropriate and evaluate response 5. Consider cultural and social influences on pain and pain management 6. Notify LIP if interventions ineffective or patient reports new pain 7. Monitor vital signs including pulse ox, end-tidal CO2 based on pain intervention 8. Reassess pain per policy 9. Teach patient or legal passenger relations representative interventions for comforting Outcome: Progressing Note: Evaluation of progress towards goal: Patient able to verbalize pain and discomfort to staff, nurse uses proper intervention to control pain and discomfort. Problem: Safety Goal: Patient will be injury free during hospitalization Description: INTERVENTIONS: 1. Assess patient's risk for falls and implement fall prevention plan of care per policy 2. Provide and maintain a safe environment 3. Proper use of double Identifiers 4. Medication administration using the 5 rights 5. Hand hygiene 6. Specimens are labeled at the bedside 7. Instruct patient/ patient passenger relations representative about use of safety devices 8. Include patient/ patient passenger relations representative in decisions related to safety Outcome: Progressing Note: Evaluation of progress towards goal: Patient safety maintained, call light in reach, area clear of hazards, hourly rounding continued, bed locked in lowest position, alarm on as applicable, non skid socks on, safety educated completed with patient/family, no injuries noted at this time. Problem: Infection Goal: Absence of infection during hospitalization Description: INTERVENTIONS 1. Assess and monitor for signs and symptoms of infection. 2. Monitor lab/diagnostic results. 3. Monitor all insertion sites i.e., indwelling lines, tubes and drains. 4. Monitor endotracheal (as able) and nasal secretions for changes in amount and color. 5. Administer medications as ordered. 6. Instruct and encourage patient and family to use good hand hygiene technique. 7. Identify and instruct patient/patient passenger relations representative in use of appropriate isolation precautions for identified infection/symptoms. 8. Provide and discuss with patient/patient passenger relations representative on educational MDRO sheet. 9. Encourage and monitor nutritional status daily and consult digital analytics manager if indicated. 10. Implement neutropenic guidelines as needed. Outcome: Progressing Note: Evaluation of progress towards goal: Patient remains free from signs of infection at this time. Will continue to monitor. Problem: Knowledge Deficit Goal: Patient/patient passenger relations representative demonstrates understanding of disease process, treatment plan, medications, and discharge instructions Description: INTERVENTIONS 1. Complete learning assessment and assess knowledge base 2. Provide teaching at level of understanding 3. Provide teaching via preferred learning method(s) Outcome: Progressing Note: Evaluation of progress towards goal: Nurse continues to educate patient and family on plan of care, Problem: Discharge Planning Goal: Discharge to post-acute care, other facility, or home with appropriate resources Description: Patient's goal is: INTERVENTIONS 1. Conduct assessment to determine patient/family and health care team treatment goals, and need for post-acute services based on payer coverage, community resources, and patient preferences, and barriers to discharge 2. Coordinate with Social work, Care Navigation, and Utilization Review to arrange appropriate level of services according to patient's needs based on patient preference and payer coverage in collaboration with the physician and health care team 3. Address psychosocial, clinical, and financial barriers to discharge as identified in assessment in conjunction with the patient/family and health care team 4. Consult appropriate ancillary services (i.e.. PT/OT/ST, etc) as needed 5. Communicate with and update the patient/family, physician, and health care team regarding progress on the discharge plan 6. Identify discharge learning needs (meds, wound care, etc). 7. Arrange for needed discharge transportation as appropriate Outcome: Progressing Note: Evaluation of progress towards goal: Discharge planning in progress with appropriate multidisciplinary teams. Problem: Potential for Compromised Skin Integrity Goal: Skin integrity is maintained or improved Description: Patient's goal is: INTERVENTIONS 1. Perform initial skin assessment on admission and as needed 2. Turn patient every 2 hours and PRN 3. Relieve pressure to bony prominences 4. Avoid shearing 5. Keep skin clean and dry 6. Alternate a full bath with partial baths for elderly 7. Apply lotion/moisturizer on skin 8. Monitor patient's hygiene practices 9. Float heels 10. Collaborate with interdisciplinary team and initiate plans and interventions as needed Outcome: Progressing Note: Evaluation of progress towards goal: Patient is turned every 2 hours and as needed. Skin is clean and dry. Will continue to monitor. Goal: Patient's nutritional intake is adequate Description: Patient's goal is: INTERVENTIONS 1. Assess and monitor food intake and supplements, patient food preferences, nausea, vomiting, labs, oral cavity (gums, teeth, tongue, mucosa), proper denture fit, and cultural beliefs 2. Monitor for signs of hypoglycemia and hyperglycemia 3. Collaborate with interdisciplinary team and initiate plan and interventions as ordered 4. Monitor patient's weight 5. Assist patient with meals/food selection 6. Assist patient with eating 7. Allow adequate time for meals 8. Provide pleasant environment during mealtime 9. Increase social contact during mealtimes 10. Plan activities to conserve energy 11. Encourage/perform oral hygiene as appropriate 12. Encourage patient to take dietary supplement as ordered 13. Collaborate with clinical digital analytics manager 14. Include patient/ patient's passenger relations representative in decisions related to nutrition Outcome: Progressing Note: Evaluation of progress towards goal: Patient is turned every 2 hours and as needed. Skin is clean and dry. Will continue to monitor. Problem: Urinary Incontinence Goal: Perineal skin integrity is maintained or improved Description: INTERVENTIONS 1. Assess genitourinary system, perineal skin, labs (urinalysis), and history of incontinence to include past management, aggravating, and alleviating factors 2. Keep skin clean and dry 3. Apply skin protectant 4. Develop skin care regimen 5. Provide privacy when changing patients incontinence device to maintain their dignity 6. Consider placing an indwelling catheter 7. Collaborate with interdisciplinary team and initiate plans and interventions as needed Outcome: Progressing Note: Evaluation of progress towards goal: Patient continues with alexis catheter due to urinary retention. Problem: Moderate - High Risk Fall Score Description: García Fall Score of =/> 25 [facility] Goal: Patient should be free from fall Description: Interventions: 1. [place] to environment 2. Hourly rounds addressing the 4 P's (Pain, Positioning, Possessions, Potty) 3. Clear area of hazards (spills, clutter, electrical cords, unnecessary equipment) 4. Place equipment (bed & TV controls, call light, phone, urinal) within reach 5. Encourage patient to wear glasses and hearing aides as appropriate 6. Maintain bed in lowest position 7. Lock wheels on bed/wheelchair 8. Provide adequate lighting, including night light 9. Assess need for additional bedding, food/fluids, pain med's prior to sleep/routinely 10. Provide gripper slippers or personal non-skid footwear 11. Teach patient and patient passenger relations representative to maintain environment for safety and engage in all aspects of fall prevention program 12. Remind patient to call for help before getting out of bed 13. Initiate bed/chair/exit alarms supportive devices as appropriate, (chair wedge, no-skid floor mat, raised edge mattress, hip protectors) 14. Locate patient bed assignment for optimal visualization 15. Evaluate and identify Safe Patient Handling Equipment needs 16. Provide supervision when out of bed or chair 17. Utilize gait belt as needed to assist with ambulation 18. Place adaptive equipment (cane, walker) within reach 19. Request patient passenger relations representative bring adaptive equipment/mobility aids from home or obtain and provide as needed 20. Consult pharmacy regarding effects of med's affecting mobility, cognition, and alternatives 21. Obtain physician order for PT if risk factors associated with mobility are present 22. Obtain physician order for OT as appropriate 23. Utilize diversional activities 24. Educate patient and patient passenger relations representative how to maintain a safe environment during visitation times (notify nurse prior to leaving bedside) 25. Consider appropriateness of medical or non-medical billing coordinator 26. Set up voiding schedule as appropriate (every 2 hours) Outcome: Progressing Note: Evaluation of progress towards goal: Fall risk assessment preformed and safety measures in place. Education given to family/patient. Will continue to monitor. Problem: Neurosensory - Adult Goal: Achieves stable or improved neurological status Description: Patient's goal is: INTERVENTIONS 1. Assess for and report changes in neurological status 2. Initiate measures to prevent increased intracranial pressure 3. Maintain blood pressure and fluid volume within ordered parameters to optimize cerebral perfusion and minimize risk of hemorrhage 4. Monitor temperature, glucose, and sodium. Initiate appropriate interventions as ordered Outcome: Progressing Note: Evaluation of progress towards goal: Patient continues with stable neurological assessment, any changes nurse will report to the proper medical staff. Problem: Pain Goal: Patient goal is pain score less than 4, able to rest, and participant in treatment plan as appropriate Description: INTERVENTIONS: 1. Encourage patient or legal passenger relations representative to report early pain and ask for pain medicine when needed 2. Assess pain using appropriate pain scale and include the scale used when documenting 3. Administer analgesics based on type and severity of pain and evaluate response within appropriate time frame 4. Implement non-pharmacological measures as appropriate and evaluate response 5. Consider cultural and social influences on pain and pain management 6. Notify LIP if interventions ineffective or patient reports new pain 7. Monitor vital signs including pulse ox, end-tidal CO2 based on pain intervention 8. Reassess pain per policy 9. Teach patient or legal passenger relations representative interventions for comforting Outcome: Progressing Note: Evaluation of progress towards goal: Patient has PRN pain medication. Checking with every assessment. Monitoring vitals. Problem: Safety Goal: Patient will be injury free during hospitalization Description: INTERVENTIONS: 1. Assess patient's risk for falls and implement fall prevention plan of care per policy 2. Provide and maintain a safe environment 3. Proper use of double Identifiers 4. Medication administration using the 5 rights 5. Hand hygiene 6. Specimens are labeled at the bedside 7. Instruct patient/ patient passenger relations representative about use of safety devices 8. Include patient/ patient passenger relations representative in decisions related to safety Outcome: Progressing Note: Evaluation of progress towards goal: Patient safety maintained, call light in reach, area clear of hazards, hourly rounding continued, bed locked in lowest position, alarm on as applicable, non skid socks on, safety educated completed with patient/family, no injuries noted at this time. Problem: Infection Goal: Absence of infection during hospitalization Description: INTERVENTIONS 1. Assess and monitor for signs and symptoms of infection. 2. Monitor lab/diagnostic results. 3. Monitor all insertion sites i.e., indwelling lines, tubes and drains. 4. Monitor endotracheal (as able) and nasal secretions for changes in amount and color. 5. Administer medications as ordered. 6. Instruct and encourage patient and family to use good hand hygiene technique. 7. Identify and instruct patient/patient passenger relations representative in use of appropriate isolation precautions for identified infection/symptoms. 8. Provide and discuss with patient/patient passenger relations representative on educational MDRO sheet. 9. Encourage and monitor nutritional status daily and consult digital analytics manager if indicated. 10. Implement neutropenic guidelines as needed. Outcome: Progressing Note: Evaluation of progress towards goal: Patient remains free from signs of infection at this time. Will continue to monitor. Problem: Knowledge Deficit Goal: Patient/patient passenger relations representative demonstrates understanding of disease process, treatment plan, medications, and discharge instructions Description: INTERVENTIONS 1. Complete learning assessment and assess knowledge base 2. Provide teaching at level of understanding 3. Provide teaching via preferred learning method(s) Outcome: Progressing Note: Evaluation of progress towards goal: Patient and family is aware of the plan of care. Education provided as needed. Problem: Discharge Planning Goal: Discharge to post-acute care, other facility, or home with appropriate resources Description: Patient's goal is: INTERVENTIONS 1. Conduct assessment to determine patient/family and health care team treatment goals, and need for post-acute services based on payer coverage, community resources, and patient preferences, and barriers to discharge 2. Coordinate with Social work, Care Navigation, and Utilization Review to arrange appropriate level of services according to patient's needs based on patient preference and payer coverage in collaboration with the physician and health care team 3. Address psychosocial, clinical, and financial barriers to discharge as identified in assessment in conjunction with the patient/family and health care team 4. Consult appropriate ancillary services (i.e.. PT/OT/ST, etc) as needed 5. Communicate with and update the patient/family, physician, and health care team regarding progress on the discharge plan 6. Identify discharge learning needs (meds, wound care, etc). 7. Arrange for needed discharge transportation as appropriate Outcome: Progressing Note: Evaluation of progress towards goal: Patient and family are aware of plan of care and discharge plans. Will continue to monitor. Problem: Urinary Incontinence Goal: Perineal skin integrity is maintained or improved Description: INTERVENTIONS 1. Assess genitourinary system, perineal skin, labs (urinalysis), and history of incontinence to include past management, aggravating, and alleviating factors 2. Keep skin clean and dry 3. Apply skin protectant 4. Develop skin care regimen 5. Provide privacy when changing patients incontinence device to maintain their dignity 6. Consider placing an indwelling catheter 7. Collaborate with interdisciplinary team and initiate plans and interventions as needed Outcome: Progressing Note: Evaluation of progress towards goal: Perineal skin integrity remains clean, dry, and intact with no redness or s/s of breakdown. Skin care regimen considered as needed. Collaboration with interdisciplinary teams considered as needed. Problem: Moderate - High Risk Fall Score Description: García Fall Score of =/> 25 or indicated by [facility] Assessment Goal: Patient should be free from fall Description: Interventions: 1. [place] to environment 2. Hourly rounds addressing the 4 P's (Pain, Positioning, Possessions, Potty) 3. Clear area of hazards (spills, clutter, electrical cords, unnecessary equipment) 4. Place equipment (bed & TV controls, call light, phone, urinal) within reach 5. Encourage patient to wear glasses and hearing aides as appropriate 6. Maintain bed in lowest position 7. Lock wheels on bed/wheelchair 8. Provide adequate lighting, including night light 9. Assess need for additional bedding, food/fluids, pain med's prior to sleep/routinely 10. Provide gripper slippers or personal non-skid footwear 11. Teach patient and patient passenger relations representative to maintain environment for safety and engage in all aspects of fall prevention program 12. Remind patient to call for help before getting out of bed 13. Initiate bed/chair/exit alarms supportive devices as appropriate, (chair wedge, no-skid floor mat, raised edge mattress, hip protectors) 14. Locate patient bed assignment for optimal visualization 15. Evaluate and identify Safe Patient Handling Equipment needs 16. Provide supervision when out of bed or chair 17. Utilize gait belt as needed to assist with ambulation 18. Place adaptive equipment (cane, walker) within reach 19. Request patient passenger relations representative bring adaptive equipment/mobility aids from home or obtain and provide as needed 20. Consult pharmacy regarding effects of med's affecting mobility, cognition, and alternatives 21. Obtain physician order for PT if risk factors associated with mobility are present 22. Obtain physician order for OT as appropriate 23. Utilize diversional activities 24. Educate patient and patient passenger relations representative how to maintain a safe environment during visitation times (notify nurse prior to leaving bedside) 25. Consider appropriateness of medical or non-medical billing coordinator 26. Set up voiding schedule as appropriate (every 2 hours) Outcome: Progressing Note: Evaluation of progress towards goal: Fall risk assessment preformed and safety measures in place. Education given to family/patient. Will continue to monitor. Problem: Neurosensory - Adult Goal: Achieves stable or improved neurological status Description: Patient's goal is: INTERVENTIONS 1. Assess for and report changes in neurological status 2. Initiate measures to prevent increased intracranial pressure 3. Maintain blood pressure and fluid volume within ordered parameters to optimize cerebral perfusion and minimize risk of hemorrhage 4. Monitor temperature, glucose, and sodium. Initiate appropriate interventions as ordered Outcome: Progressing Note: Evaluation of progress towards goal: Neuro assessments are completed per policy. Will continue to monitor the pts LOC, motor function, and sensory function. Will continue to monitor vital signs and lab results. Ongoing Assessment for Discharge Needs Reviewed discharge milestones and patient needs related to discharge plan. Current estimated discharge date of September 25, 2024 has been reviewed by treatment team. Ongoing Assessment for Discharge Needs Flowsheet Row Most Recent Value Services Requested Patient expects to be discharged to: SNF Patient choice offered Yes List Provided Patient declined Patient Declined Active with Provider Case discussed in daily transition rounds and chart reviewed by CN. Barriers to discharge include s/p crani, alexis, wounds(skin tears), PT/OT to see. Discharge Plan remains: Return to [facility]-will need precert. CN will continue to follow and is available should any further needs arise. - Manjinder Suresh RN 09/24/24 2:35 PM Speech Therapy Videofluoroscopic Swallow Study Evaluation and Treatment Note OK for 5 Minced & Moist (MM5) Diet with 2 Mildly Thick (MT2) Liquids, NO STRAWS with meds in applesauce. Will continue to follow along for now and plan to repeat exam prior to discharge. Impressions Oral Phase: Moderate Pharyngeal Phase: Mild Functional Oral Intake Scale: Total PO with multiple consistencies requiring special prep Recommendations Diet Level: Level 5 Minced and Moist Liquid Level: Level 2 Mildly Thick (no straw) Compensatory Strategies: Small sips/bites, One sip/bite at a time, No straws, Follow aspiration precautions Supervision/Positioning: Patient at 90 degress for all PO intake (including medication), Supervise all PO intake, Patient to remain upright 15 minutes after meals, Cue patient to use compensatory strategies Medications: In applesauce/puree Referrals: Dysphagia therapy, Conveyor Belt Installer Discharge Recommendations: (ongoing ST services) Pt educated on purpose of exam, contrast administration and procedural techniques prior to initiation of exam. Pt educated on diet recommendations, plan of care and encouraged to use safety strategies in order to maintain safe PO intake following exam. Plan Frequency: 3-4days/week Duration: until discharge Treatments/Modalities: Campbell maneuver, Safety strategies Need for skilled Speech Language Pathology Services to address deficits in feeding/swallowing due to a status decline resulting from weakness post craniotomy. Pt is a 54yo female with h/o MS, who initially presented to [facility] 09/18 from her rehab facility with complaints of altered mental status. Per chart review patient was recently treated for rhabdomyolysis. 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 Pt was transferred to [facility] for neurosurgery consult. 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 Speech consulted post operatively to assess swallow function prior to diet initiation. Prognosis Services: Skilled [employer] services to address above deficits Prognosis/Potential: Good Considerations: Age, Previous level of function Assessment Baseline Assessment Allergies Marked As Reviewed: Complete Consistencies Tested Views: Lateral position Level 0 Thin: Spoon, Cup, Straw Level 2 Mildly Thick: Cup, Straw Level 4 Pureed: Spoon Level 6 Soft & Bite-Sized: Spoon Modified Barium Swallow Impairment Profile (MBSImP) Oral Impairment: Yes Component 1: Lip Closure: interlabial escape, no progression to anterior lip Component 2: Tongue Control During Bolus Hold: posterior escape of greater than half of bolus Component 3: Bolus Preparation/Mastication: disorganized chewing/mashing with solid pieces of bolus unchewed Component 4: Bolus Transport/Lingual Motion: slowed tongue motion Component 5: Oral Residue: residue collection on oral structures Component 6: Initiation of Pharyngeal Swallow: bolus head in pyriforms Pharyngeal Impairment: Yes Component 7: Soft Palate Elevation: no bolus between soft palate/posterior pharyngeal wall Component 8: Laryngeal Elevation: partial superior movement of thyroid cartilage/partial approximation of arytenoids to epiglottic petiole Component 9: Anterior Hyoid Excursion: partial anterior movement Component 10: Epiglottic Movement: partial inversion Component 11: Laryngeal Vestibular Closure - Height of the Swallow: incomplete, narrow column of contrast/air in laryngeal vestibule Component 12: Pharyngeal Stripping Wave: present - diminished Component 13: Pharyngeal Contraction (A/P view only): could not be determined due to logistical reasons not related to physiologic impairment Component 14: Pharyngoesophageal Segment Opening: partial distension/partial duration, partial obstruction of flow Component 15: Tongue Base Retraction: trace column of contrast/air between tongue base and posterior pharyngeal wall Component 16: Pharyngeal Residue: trace residue within or on pharyngeal structures MBSImP Overall Impression Scores Oral Impairment Total: 13 Pharyngeal Impairment Total: 8 Penetration/Aspiration Scale Penetration/Aspiration Scale Performed: Yes Level 0 Thin: Contrast entered the airway, contacted the vocal folds, and was not ejected from the airway Level 2 Mildly Thick: Contrast did not enter the airway, Contrast entered the airway, remained above the vocal folds, and was not ejected from the airway (1 via cup, 3) Level 4 Pureed: Contrast did not enter the airway Level 6 Soft & Bite-Sized: Contrast did not enter the airway Trialed Compensatory Strategies Strategies Utilized: Small sips/bites, Controlled bolus Effective: No Pain Assessment Pain Assessment: No/denies pain Plan Diagnosis Code Swallowing: R13.12 Dysphagia, oropharyngeal phase Speech Therapy Care Plan Speech Therapy Care Plan (Active) Template: ST - Dysphagia Problem: Swallowing Dates: Start: 09/24/24 Disciplines: [employer] Goal: LTG: Patient will tolerate least restrictive diet recommended by [employer] without signs and symptoms of aspiration 90% of the time Dates: Start: 09/24/24 Expected End: 10/25/24 Disciplines: PATENT [employer] Goal: STG: Patient will complete safety strategies independently during PO intake 90% of the time Dates: Start: 09/24/24 Expected End: 10/25/24 Disciplines: PATENT [employer] Goal: STG: Patient will complete oral/ pharyngeal strengthening program with resistance with 90% accuracy with minimal cueing Dates: Start: 09/24/24 Expected End: 10/25/24 Disciplines: PATENT [employer] Goal: STG: Patient will tolerate therapeutic feeding trials of advanced textures with 90% accuracy with minimal cueing Dates: Start: 09/24/24 Expected End: 10/25/24 Disciplines: PATENT PARALEGAL Template: ST - Rehab Speech Problem: Auditory Comprehension Dates: Start: 09/24/24 Disciplines: PATENT PARALEGAL Goal: LTG: Patient will comprehend communication related to basic medical and social needs and utilize compensatory strategies to maintain safety in a functional living environment Dates: Start: 09/24/24 Expected End: 10/25/24 Disciplines: PATENT PARALEGAL Goal: STG: Patient will answer complex yes/no questions with 90% accuracy with minimal cueing Dates: Start: 09/24/24 Expected End: 10/25/24 Disciplines: PATENT PARALEGAL Goal: STG: Patient will complete 1-3 step commands with 90% accuracy with minimal cueing Dates: Start: 09/24/24 Expected End: 10/25/24 Disciplines: PATENT PARALEGAL Goal: STG: Patient will complete simple, phrase level auditory comprehension tasks with 90% accuracy with minimal cueing Dates: Start: 09/24/24 Expected End: 10/25/24 Disciplines: PATENT PARALEGAL Problem: Cognitive Linguistic Dates: Start: 09/24/24 Disciplines: PATENT PARALEGAL Goal: LTG: Patient will display functional cognitive-linguistic skills to demonstrate appropriate communication and safety within daily activities in a functional living environment Dates: Start: 09/24/24 Expected End: 10/25/24 Disciplines: PATENT PARALEGAL Goal: STG: Patient will demonstrate sustained attention by maintaining focus during a task for 10 minutes with minimal assistance Dates: Start: 09/24/24 Expected End: 10/25/24 Disciplines: PATENT PARALEGAL Goal: STG: Patient will be appropriately oriented to person, place, time and situation with 90% accuracy with minimal cueing Dates: Start: 09/24/24 Expected End: 10/25/24 Disciplines: PATENT PARALEGAL Goal: STG: Patient will describe/demonstrate/initiate use of 3 memory strategies with minimal cueing Dates: Start: 09/24/24 Expected End: 10/25/24 Disciplines: PATENT PARALEGAL Problem: High Level Language Dates: Start: 09/24/24 Disciplines: PATENT PARALEGAL Goal: LTG: Patient will demonstrate use of self-awareness, goal setting, planning, initiation, self-monitoring and problem solving during daily activities to improve safety and awareness in a functional living environment Dates: Start: 09/24/24 Expected End: 10/25/24 Disciplines: PATENT PARALEGAL Goal: STG: Patient will demonstrate functional problem solving and safety awareness with 90% accuracy in daily living tasks in order to increase safe interactions with environment and decrease assistance from caregivers Dates: Start: 09/24/24 Expected End: 10/25/24 Disciplines: PATENT PARALEGAL Problem: Speech Production Dates: Start: 09/24/24 Disciplines: PATENT PARALEGAL Goal: LTG: Patient will develop functional and intelligible speech and utilize compensatory strategies through the use of adequate labial and lingual function, increased articulatory precision and speech prosody Dates: Start: 09/24/24 Expected End: 10/25/24 Disciplines: PATENT PARALEGAL Goal: STG: Patient will use appropriate articulatory accuracy and speech rate when reading/speaking with 90% accuracy with minimal cueing Dates: Start: 09/24/24 Expected End: 10/25/24 Disciplines: PATENT PARALEGAL Goal: STG: Patient will complete rapid alternating verbal sequences (tongue twisters) with improved articulatory precision with 90% accuracy with minimal cueing Dates: Start: 09/24/24 Expected End: 10/25/24 Disciplines: PATENT [employer]GAL Problem: Verbal Expression Dates: Start: 09/24/24 Disciplines: PATENT PARALEGAL Goal: LTG: Patient will utilize compensatory strategies to communicate wants and needs effectively to different conversational partners, maintain safety and participate socially in a functional living environment Dates: Start: 09/24/24 Expected End: 10/25/24 Disciplines: PATENT PARALEGAL Goal: STG: Patient will describe objects, pictures (salient features) with 90% accuracy with minimal cueing to improve word retrieval skills Dates: Start: 09/24/24 Expected End: 10/25/24 Disciplines: PATENT PARALEGAL Goal: STG: Patient will respond to simple/complex open ended questions during activities of daily living with 90% accuracy with minimal cueing Dates: Start: 09/24/24 Expected End: 10/25/24 Disciplines: PATENT PARALEGAL Goal: STG: Patient will complete simple to complex divergent and convergent naming tasks with 90% accuracy with minimal cueing to improve thought organization Dates: Start: 09/24/24 Expected End: 10/25/24 Disciplines: PATENT PARALEGAL Speech Therapy Care Plan (Resolved) There are no resolved problems. Principal Problem: Altered mental status, unspecified altered mental status type Active Problems: Generalized anxiety disorder with panic attacks Hyperlipidemia, acquired Multiple sclerosis (CMS-HCC) LORENZO (obstructive sleep apnea) Primary hypertension Depression, unspecified Dysphagia, oropharyngeal phase Speech Therapy Evaluation and Treatment Note Bedside Swallow/Feeding Evaluation Speech & Language Cognitive Evaluation Impressions Oral Dysphagia: Mild-moderate Pharyngeal Dysphagia Suspected: Yes Recommendations Diet Level: NPO Liquid Level: No liquids Medications: In applesauce/puree Referrals: [facility] Discharge Recommendations: (continued speech services) Plan Frequency: 3-4days/week Duration: until discharge Treatments/Modalities: Safety strategies, Super/supra glottic swallow, Aline maneuver, Campbell maneuver, Pharyngeal strengthening, Base of tongue retraction Need for skilled Speech Language Pathology Services to address deficits in feeding/swallowing due to a status decline resulting from altered mental status. Recommended [facility] to determine safety of swallow. Please place order. Prognosis Services: Skilled PATENT [facility] services to address above deficits Prognosis/Potential: Good Considerations: Age, Ability to learn, Previous level of function Impressions Receptive Language: Moderate Expressive Language: Moderate Cognitive Linguistic: Moderate Recommendations Discharge Recommendations: (continued speech services) Rehab Therapy Type: Individual treatment Plan Frequency: 3-4days/week Duration: until discharge Treatments/Modalities: Strategies/techniques training Need for skilled Speech Language Pathology Services to address deficits in speech/language/cognition due to a status decline resulting from altered mental status s/p craniotomy for tumor resection. Pt and RN educated on results and recommendations of evaluation. Pt responds well to verbal cues, increased processing time, repetition, and semantic cues. Will continue to follow along. Prognosis Services: Skilled [employer] services to address the above deficits Prognosis/Potential: Good Considerations: Age, Ability to learn, Previous level of function Assessment Bedside Swallow/Feeding Eval Speech & Language Cognitive Eval Baseline Assessment Additional Testing Results: Chest X-Ray, Computed Tomography Temperature Spikes Noted: No Respiratory Status: O2 via nasal cannula History of Intubation: Yes (for surgery) Behavior/Cognition: Cooperative, Pleasant mood, Requires cueing Dentition: Adequate Vision: Functional for self-feeding Patient Positioning: Upright in bed Laryngectomy: No Ability to Control Secretions: Yes Allergies Marked As Reviewed: Complete Oral/Motor Overall Oral/Motor Status: Exceptions to Within Functional Limits Labial ROM: Reduced Labial Strength: Reduced Labial Coordination: Reduced Lingual ROM: Reduced Lingual Strength: Reduced Facial Strength: Reduced Intelligibility: Intelligibility reduced Intelligibility Rating: Mild Breath Support: Adequate for speech Dentition: Adequate Xerostomia: No Hearing: Within Functional Limits Consistencies Assessed: Yes Level 0 Thin Presentation: Cup, Straw Oral: Suspect premature spillage Pharyngeal: Decreased laryngeal elevation, Cough- immediate, Wet/gurgly vocal quality Level 4 Pureed Presentation: Spoon Oral: Within Functional Limits Pharyngeal: Decreased laryngeal elevation, Delayed swallow initiation Regular Presentation: Assist feed Oral: Decreased mastication, Decreased bolus formation, Suspect premature spillage, Oral stasis/pocketing Pharyngeal: Decreased laryngeal elevation, Delayed swallow initiation Cranial Nerve Screening CN VII (facial): Reduced facial movements CN XII (hypoglossal): Reduced tongue movements Pain Assessment Pain Assessment: No/denies pain Oral/Motor Overall Oral/Motor Status: Exceptions to Within Functional Limits Labial ROM: Reduced Labial Strength: Reduced Labial Coordination: Reduced Lingual ROM: Reduced Lingual Strength: Reduced Facial Strength: Reduced Intelligibility: Intelligibility reduced Intelligibility Rating: Mild Breath Support: Adequate for speech Dentition: Adequate Xerostomia: No Hearing: Within Functional Limits Cranial Nerve Screening CN VII (facial): Reduced facial movements CN XII (hypoglossal): Reduced tongue movements Auditory Comprehension Overall Auditory Comphension Status: Exceptions to Within Functional Limits Yes/No Questions: Exceptions to WFL Basic Questions: Mild Complex Questions: Moderate Commands: Exceptions to WFL Multistep Basic Commands: Mild Complex/Abstract Commands: Moderate Conversation: Simple Paragraph: Moderate Sentence: Mild Perception Overall Perception Status: Exceptions to Within Functional Limits Initiation: Cues to initiate tasks Perseveration: Perseverates during conversation Visual Recognition Overall Visual Recognition Status: Within Functional Limits Expression Overall Expression Status: Exceptions to Within Functional Limits Primary Mode of Expression: Verbal Verbal Expression Overall Verbal Expression Status: Exceptions to Within Functional Limits Initiation: Impairment Automatics: Impairment Naming: Impairment Confrontation: Mild Convergent: Moderate Divergent: Moderate Responsive: Mild Speech Production Overall Speech Production: Exceptions to Within Functional Limits Words: Mild Phrases: Mild Sentences: Mild Conversation: Mild Voice Evaluation Overall Voice Impairment Severity: None Pragmatics/Social Functioning Overall Pragmatic Status: Within Functional Limits Fluency Comments: no dysfluencies noted High Level Language Overall High Level Language Status: Exceptions to Within Functional Limits Attention: Exceptions to WFL Alternating Attention: Moderate Divided Attention: Moderate Selective Attention: Moderate Sustained Attention: Moderate Memory: Exceptions to WFL Immediate Memory: Mild Short-term Memory: Moderate Problem Solving: Exceptions to WFL Complex Functional Tasks: Moderate Managing Finances: Mild Managing Medications: Mild Performing Discharge Planning: Mild Simple Functional Tasks: Mild Verbal Reasoning Skills: Moderate Numeric Reasoning: Exceptions to WFL Complex Calculations: Moderate Money Management: Moderate Simple Calculations: Moderate Abstract Reasoning: Mild Inductive Reasoning: Mild Deductive Reasoning: Mild Safety/Judgement: Exceptions to WFL Complex Functional Tasks: Moderate Novel Situations: Moderate Routine Tasks: Moderate Task Initiation: Initiates with cues Flexibility of Thought: Reduced flexibility Planning: Reduced planning skills Organization: Moderately disorganized Cognition Overall Cognitive Status: Exceptions to Within Functional Limits Attention Span: Attends with cues to redirect Memory: Decreased immediate memory, Decreased short term memory Orientation Level: Oriented to person, Disoriented to time, Oriented to place, Disoriented to situation Following Commands: Follows one step commands consistently Safety Judgment: Decreased awareness of need for assistance, Decreased awareness of need for safety Problem Solving: Assistance required to generate solutions, Assistance required to implement solutions Pain Assessment Pain Assessment: No/denies pain Plan Diagnosis Code Swallowing: R13.12 Dysphagia, oropharyngeal phase Language: R48.8 Other symbolic dysfunction/acalculia/agraphia Speech Therapy Care Plan Speech Therapy Care Plan (Active) Template: ST - Dysphagia Problem: Swallowing Dates: Start: 09/24/24 Disciplines: PATENT [employer]GAL Goal: LTG: Patient will tolerate least restrictive diet recommended by PATENT [employer]ALEGAL without signs and symptoms of aspiration 90% of the time Dates: Start: 09/24/24 Expected End: 10/25/24 Disciplines: PATENT [employer]ALEGAL Goal: STG: Patient will complete safety strategies independently during PO intake 90% of the time Dates: Start: 09/24/24 Expected End: 10/25/24 Disciplines: PATENT [employer]ALEGAL Goal: STG: Patient will complete oral/ pharyngeal strengthening program with resistance with 90% accuracy with minimal cueing Dates: Start: 09/24/24 Expected End: 10/25/24 Disciplines: PATENT [employer]ALEGAL Goal: STG: Patient will tolerate therapeutic feeding trials of advanced textures with 90% accuracy with minimal cueing Dates: Start: 09/24/24 Expected End: 10/25/24 Disciplines: PATENT [employer]ALEGAL Template: ST - Rehab Speech Problem: Auditory Comprehension Dates: Start: 09/24/24 Disciplines: PATENT [employer]ALEGAL Goal: LTG: Patient will comprehend communication related to basic medical and social needs and utilize compensatory strategies to maintain safety in a functional living environment Dates: Start: 09/24/24 Expected End: 10/25/24 Disciplines: PATENT [employer]ALEGAL Goal: STG: Patient will answer complex yes/no questions with 90% accuracy with minimal cueing Dates: Start: 09/24/24 Expected End: 10/25/24 Disciplines: PATENT PARALEGAL Goal: STG: Patient will complete 1-3 step commands with 90% accuracy with minimal cueing Dates: Start: 09/24/24 Expected End: 10/25/24 Disciplines: PATENT PARALEGAL Goal: STG: Patient will complete simple, phrase level auditory comprehension tasks with 90% accuracy with minimal cueing Dates: Start: 09/24/24 Expected End: 10/25/24 Disciplines: PATENT [employer]GAL Problem: Cognitive Linguistic Dates: Start: 09/24/24 Disciplines: PATENT [employer]GAL Goal: LTG: Patient will display functional cognitive-linguistic skills to demonstrate appropriate communication and safety within daily activities in a functional living environment Dates: Start: 09/24/24 Expected End: 10/25/24 Disciplines: PATENT PARALEGAL Goal: STG: Patient will demonstrate sustained attention by maintaining focus during a task for 10 minutes with minimal assistance Dates: Start: 09/24/24 Expected End: 10/25/24 Disciplines: PATENT PARALEGAL Goal: STG: Patient will be appropriately oriented to person, place, time and situation with 90% accuracy with minimal cueing Dates: Start: 09/24/24 Expected End: 10/25/24 Disciplines: PATENT PARALEGAL Goal: STG: Patient will describe/demonstrate/initiate use of 3 memory strategies with minimal cueing Dates: Start: 09/24/24 Expected End: 10/25/24 Disciplines: PATENT [employer]ALEGAL Problem: High Level Language Dates: Start: 09/24/24 Disciplines: PATENT [employer]GAL Goal: LTG: Patient will demonstrate use of self-awareness, goal setting, planning, initiation, self-monitoring and problem solving during daily activities to improve safety and awareness in a functional living environment Dates: Start: 09/24/24 Expected End: 10/25/24 Disciplines: PATENT PARALEGAL Goal: STG: Patient will demonstrate functional problem solving and safety awareness with 90% accuracy in daily living tasks in order to increase safe interactions with environment and decrease assistance from caregivers Dates: Start: 09/24/24 Expected End: 10/25/24 Disciplines: PATENT [employer]ALEGAL Problem: Speech Production Dates: Start: 09/24/24 Disciplines: PATENT [employer]GAL Goal: LTG: Patient will develop functional and intelligible speech and utilize compensatory strategies through the use of adequate labial and lingual function, increased articulatory precision and speech prosody Dates: Start: 09/24/24 Expected End: 10/25/24 Disciplines: PATENT [employer]ALEGAL Goal: STG: Patient will use appropriate articulatory accuracy and speech rate when reading/speaking with 90% accuracy with minimal cueing Dates: Start: 09/24/24 Expected End: 10/25/24 Disciplines: PATENT PARALEGAL Goal: STG: Patient will complete rapid alternating verbal sequences (tongue twisters) with improved articulatory precision with 90% accuracy with minimal cueing Dates: Start: 09/24/24 Expected End: 10/25/24 Disciplines: PATENT PARALEGAL Problem: Verbal Expression Dates: Start: 09/24/24 Disciplines: PATENT [employer]GAL Goal: LTG: Patient will utilize compensatory strategies to communicate wants and needs effectively to different conversational partners, maintain safety and participate socially in a functional living environment Dates: Start: 09/24/24 Expected End: 10/25/24 Disciplines: PATENT PARALEGAL Goal: STG: Patient will describe objects, pictures (salient features) with 90% accuracy with minimal cueing to improve word retrieval skills Dates: Start: 09/24/24 Expected End: 10/25/24 Disciplines: PATENT PARALEGAL Goal: STG: Patient will respond to simple/complex open ended questions during activities of daily living with 90% accuracy with minimal cueing Dates: Start: 09/24/24 Expected End: 10/25/24 Disciplines: PATENT PARALEGAL Goal: STG: Patient will complete simple to complex divergent and convergent naming tasks with 90% accuracy with minimal cueing to improve thought organization Dates: Start: 09/24/24 Expected End: 10/25/24 Disciplines: PATENT [employer]ALEGAL Speech Therapy Care Plan (Resolved) There are no resolved problems. Principal Problem: Altered mental status, unspecified altered mental status type Active Problems: Generalized anxiety disorder with panic attacks Hyperlipidemia, acquired Multiple sclerosis (CMS-HCC) LORENZO (obstructive sleep apnea) Primary hypertension Depression, unspecified Dysphagia, oropharyngeal phase No restraints Problem: Safety - Medical Restraint Goal: Remains free of injury from restraints (Restraint for Interference with Policy Services Representative) Description: INTERVENTIONS: 1. Determine that other, less restrictive measures have been tried or would not be effective before applying the restraint 2. Evaluate the patient's condition at the time of restraint application 3. Inform patient/family regarding the reason for restraint 4. Q2H: Monitor safety, Vital signs, psychosocial status, signs of injury, skin integrity, circulation, neurovascular status in affected extremities, respiratory status, comfort, nutrition and hydration, hygiene, ROM, elimination needs 5. Doctor will be notified of restraint 6. RN properly applies restraints per physician order Outcome: Completed Note: Evaluation of progress towards goal: complete Goal: Free from restraint(s) (Restraint for Interference with Policy Services Representative) Description: INTERVENTIONS: 1. ONCE/SHIFT or MINIMUM Q12H: Assess and document the continuing need for restraints 2. Order is valid for the duration of the episode of care 3. Discontinue at the earliest possible time once the reason for restraints no longer exists 4. Identify and implement measures to help patient regain control 5. Food, fluids, and toilet offered at a minimum of every 2 hours 6. RN modifies the patient's plan of care by entering a problem statement related to safety; individualizes the safety outcome Outcome: Completed Note: Evaluation of progress towards goal: complete Problem: Pain Goal: Patient goal is pain score less than 4, able to rest, and participant in treatment plan as appropriate Description: INTERVENTIONS: 1. Encourage patient or legal passenger relations representative to report early pain and ask for pain medicine when needed 2. Assess pain using appropriate pain scale and include the scale used when documenting 3. Administer analgesics based on type and severity of pain and evaluate response within appropriate time frame 4. Implement non-pharmacological measures as appropriate and evaluate response 5. Consider cultural and social influences on pain and pain management 6. Notify LIP if interventions ineffective or patient reports new pain 7. Monitor vital signs including pulse ox, end-tidal CO2 based on pain intervention 8. Reassess pain per policy 9. Teach patient or legal passenger relations representative interventions for comforting Outcome: Progressing Note: Evaluation of progress towards goal: Patient has PRN pain medication. Checking with every assessment. Monitoring vitals. Problem: Safety Goal: Patient will be injury free during hospitalization Description: INTERVENTIONS: 1. Assess patient's risk for falls and implement fall prevention plan of care per policy 2. Provide and maintain a safe environment 3. Proper use of double Identifiers 4. Medication administration using the 5 rights 5. Hand hygiene 6. Specimens are labeled at the bedside 7. Instruct patient/ patient passenger relations representative about use of safety devices 8. Include patient/ patient passenger relations representative in decisions related to safety Outcome: Progressing Note: Evaluation of progress towards goal: Patient safety maintained, call light in reach, area clear of hazards, hourly rounding continued, bed locked in lowest position, alarm on as applicable, non skid socks on, safety educated completed with patient/family, no injuries noted at this time. Problem: Infection Goal: Absence of infection during hospitalization Description: INTERVENTIONS 1. Assess and monitor for signs and symptoms of infection. 2. Monitor lab/diagnostic results. 3. Monitor all insertion sites i.e., indwelling lines, tubes and drains. 4. Monitor endotracheal (as able) and nasal secretions for changes in amount and color. 5. Administer medications as ordered. 6. Instruct and encourage patient and family to use good hand hygiene technique. 7. Identify and instruct patient/patient passenger relations representative in use of appropriate isolation precautions for identified infection/symptoms. 8. Provide and discuss with patient/patient passenger relations representative on educational MDRO sheet. 9. Encourage and monitor nutritional status daily and consult digital analytics manager if indicated. 10. Implement neutropenic guidelines as needed. Outcome: Progressing Note: Evaluation of progress towards goal: Labs and vitals monitored as ordered. Medications administered as ordered. Patient remains free from infection at this time. Problem: Knowledge Deficit Goal: Patient/patient passenger relations representative demonstrates understanding of disease process, treatment plan, medications, and discharge instructions Description: INTERVENTIONS 1. Complete learning assessment and assess knowledge base 2. Provide teaching at level of understanding 3. Provide teaching via preferred learning method(s) Outcome: Progressing Note: Evaluation of progress towards goal: Care plan discussed & goals for shift set with patient input appreciated. All questions answered. Problem: Discharge Planning Goal: Discharge to post-acute care, other facility, or home with appropriate resources Description: Patient's goal is: INTERVENTIONS 1. Conduct assessment to determine patient/family and health care team treatment goals, and need for post-acute services based on payer coverage, community resources, and patient preferences, and barriers to discharge 2. Coordinate with Social work, Care Navigation, and Utilization Review to arrange appropriate level of services according to patient's needs based on patient preference and payer coverage in collaboration with the physician and health care team 3. Address psychosocial, clinical, and financial barriers to discharge as identified in assessment in conjunction with the patient/family and health care team 4. Consult appropriate ancillary services (i.e.. PT/OT/ST, etc) as needed 5. Communicate with and update the patient/family, physician, and health care team regarding progress on the discharge plan 6. Identify discharge learning needs (meds, wound care, etc). 7. Arrange for needed discharge transportation as appropriate Outcome: Progressing Note: Evaluation of progress towards goal: Discharge orders not yet completed. Problem: Potential for Compromised Skin Integrity Goal: Skin integrity is maintained or improved Description: Patient's goal is: INTERVENTIONS 1. Perform initial skin assessment on admission and as needed 2. Turn patient every 2 hours and PRN 3. Relieve pressure to bony prominences 4. Avoid shearing 5. Keep skin clean and dry 6. Alternate a full bath with partial baths for elderly 7. Apply lotion/moisturizer on skin 8. Monitor patient's hygiene practices 9. Float heels 10. Collaborate with interdisciplinary team and initiate plans and interventions as needed Outcome: Progressing Note: Evaluation of progress towards goal: Patient repositioned Q2 hrs. Monitor for s/s of skin breakdown and treat/communicate with treatment team as needed. Goal: Patient's nutritional intake is adequate Description: Patient's goal is: INTERVENTIONS 1. Assess and monitor food intake and supplements, patient food preferences, nausea, vomiting, labs, oral cavity (gums, teeth, tongue, mucosa), proper denture fit, and cultural beliefs 2. Monitor for signs of hypoglycemia and hyperglycemia 3. Collaborate with interdisciplinary team and initiate plan and interventions as ordered 4. Monitor patient's weight 5. Assist patient with meals/food selection 6. Assist patient with eating 7. Allow adequate time for meals 8. Provide pleasant environment during mealtime 9. Increase social contact during mealtimes 10. Plan activities to conserve energy 11. Encourage/perform oral hygiene as appropriate 12. Encourage patient to take dietary supplement as ordered 13. Collaborate with clinical digital analytics manager 14. Include patient/ patient's passenger relations representative in decisions related to nutrition Outcome: Progressing Note: Evaluation of progress towards goal: Pt nutritional needs monitored and addressed as ordered by physician. Dietary recommendations appreciated as ordered. Problem: Urinary Incontinence Goal: Perineal skin integrity is maintained or improved Description: INTERVENTIONS 1. Assess genitourinary system, perineal skin, labs (urinalysis), and history of incontinence to include past management, aggravating, and alleviating factors 2. Keep skin clean and dry 3. Apply skin protectant 4. Develop skin care regimen 5. Provide privacy when changing patients incontinence device to maintain their dignity 6. Consider placing an indwelling catheter 7. Collaborate with interdisciplinary team and initiate plans and interventions as needed Outcome: Progressing Note: Evaluation of progress towards goal: Patient repositioned Q2 hrs. Monitor for s/s of skin breakdown and treat/communicate with treatment team as needed. Problem: Moderate - High Risk Fall Score Description: García Fall Score of =/> 25 or indicated by [facility] Assessment Goal: Patient should be free from fall Description: Interventions: 1. [place] to environment 2. Hourly rounds addressing the 4 P's (Pain, Positioning, Possessions, Potty) 3. Clear area of hazards (spills, clutter, electrical cords, unnecessary equipment) 4. Place equipment (bed & TV controls, call light, phone, urinal) within reach 5. Encourage patient to wear glasses and hearing aides as appropriate 6. Maintain bed in lowest position 7. Lock wheels on bed/wheelchair 8. Provide adequate lighting, including night light 9. Assess need for additional bedding, food/fluids, pain med's prior to sleep/routinely 10. Provide gripper slippers or personal non-skid footwear 11. Teach patient and patient passenger relations representative to maintain environment for safety and engage in all aspects of fall prevention program 12. Remind patient to call for help before getting out of bed 13. Initiate bed/chair/exit alarms supportive devices as appropriate, (chair wedge, no-skid floor mat, raised edge mattress, hip protectors) 14. Locate patient bed assignment for optimal visualization 15. Evaluate and identify Safe Patient Handling Equipment needs 16. Provide supervision when out of bed or chair 17. Utilize gait belt as needed to assist with ambulation 18. Place adaptive equipment (cane, walker) within reach 19. Request patient passenger relations representative bring adaptive equipment/mobility aids from home or obtain and provide as needed 20. Consult pharmacy regarding effects of med's affecting mobility, cognition, and alternatives 21. Obtain physician order for PT if risk factors associated with mobility are present 22. Obtain physician order for OT as appropriate 23. Utilize diversional activities 24. Educate patient and patient passenger relations representative how to maintain a safe environment during visitation times (notify nurse prior to leaving bedside) 25. Consider appropriateness of medical or non-medical billing coordinator 26. Set up voiding schedule as appropriate (every 2 hours) Outcome: Progressing Note: Evaluation of progress towards goal: Fall risk assessment preformed and safety measures in place. Education given to family/patient. Will continue to monitor. Problem: Neurosensory - Adult Goal: Achieves stable or improved neurological status Description: Patient's goal is: INTERVENTIONS 1. Assess for and report changes in neurological status 2. Initiate measures to prevent increased intracranial pressure 3. Maintain blood pressure and fluid volume within ordered parameters to optimize cerebral perfusion and minimize risk of hemorrhage 4. Monitor temperature, glucose, and sodium. Initiate appropriate interventions as ordered Outcome: Progressing Note: Evaluation of progress towards goal: Patient's level of consciousness, motor function, sensory function, and level of assistance needed for ADLs all monitored and assessed at this time. Changes from baseline reported to necessary personal when needed. Patients care is optimized for cerebral perfusion accordingly to patients orders. Problem: Safety - Medical Restraint Goal: Remains free of injury from restraints (Restraint for Interference with Policy Services Representative) Description: INTERVENTIONS: 1. Determine that other, less restrictive measures have been tried or would not be effective before applying the restraint 2. Evaluate the patient's condition at the time of restraint application 3. Inform patient/family regarding the reason for restraint 4. Q2H: Monitor safety, Vital signs, psychosocial status, signs of injury, skin integrity, circulation, neurovascular status in affected extremities, respiratory status, comfort, nutrition and hydration, hygiene, ROM, elimination needs 5. Doctor will be notified of restraint 6. RN properly applies restraints per physician order Outcome: Progressing Note: Evaluation of progress towards goal: Patient remains free from injury from restraints at this time. Goal: Free from restraint(s) (Restraint for Interference with Policy Services Representative) Description: INTERVENTIONS: 1. ONCE/SHIFT or MINIMUM Q12H: Assess and document the continuing need for restraints 2. Order is valid for the duration of the episode of care 3. Discontinue at the earliest possible time once the reason for restraints no longer exists 4. Identify and implement measures to help patient regain control 5. Food, fluids, and toilet offered at a minimum of every 2 hours 6. RN modifies the patient's plan of care by entering a problem statement related to safety; individualizes the safety outcome Outcome: Progressing Note: Evaluation of progress towards goal: Patient remains free from injury from restraints at this time. NEUROSURGERY OPERATIVE NOTE Patient Name: Anupama Vasquez Patient Patient Date of : 1970 Date of Surgery: 09/23/2024 Preoperative Diagnosis: Right temporal glioma Postoperative Diagnosis: same Surgeon: Jair Espinal MD Anesthesia: general endotracheal Procedures Performed: (1) right temporal craniotomy for resection of supratentorial mass not meningioma ( 2) computer-assisted, stereotactic navigation for cranial procedure Estimated Blood Loss: 30 mL Indications and Brief History: A 54-year-old female presented with altered mental status. MRI demonstrated a large, ring-enhancing mass centered in the right temporal lobe concerning for high-grade glioma. After discussion with the patient and family, it was elected to proceed with resection for definitive tissue diagnosis. Surgical risks were explained to the patient and consent was obtained. Detailed Description of Operative Note: Patient was brought to the operating room, anesthetized, and positioned supine on the table. The right shoulder was bumped. The right side of her head was shaved. Her head was then fastened to the bed with Rivera supervisor tunnel heading. Her cranial anatomy was registered to the [employer] software with good accuracy. Stealth probe was utilized to genet a? Incision. The surgical site was then prepped and draped in sterile fashion. A safety pause was completed and answered. She received antibiotic as well as seizure prophylaxis along with steroids for brain relaxation. The incision line was then infiltrated with lidocaine and epinephrine. Sharp incision was made. Farnaz clips were applied for hemostasis. A myocutaneous flap was reflected with Bovie and held forward with skin hooks. High-speed drill was utilized to place a diana hole. Craniotome was then utilized to turn a craniotomy flap. The dura was opened in curvilinear fashion. The surface of the brain appeared normal. Stealth probe was utilized to identify the best trajectory towards the tumor. A corticotomy was initiated with the bipolar tips and gentle suction. I then advanced through the boggy white matter until the capsule of the tumor was encountered. Ultrasonic aspirator was then utilized to remove the tumor in piecemeal fashion. The central portion of the tumor was necrotic with multiple thrombosed vessels suggestive of high-grade neoplasm. Resection was completed until normal-appearing white matter was encountered. On the medial side, resection was completed in subperiosteal fashion to protect the major vessels. Once resection was complete, specimens were sent off for analysis. The cavity was then irrigated. Bleeding white matter points were coagulated with the bipolar tips. Inspection of the cavity did not reveal any residual neoplasm. The raw surfaces were then lined with Surgicel. The brain at this point appeared much more relaxed. The dura was approximated and reinforced with a piece of DuraGen. The bone flap was replaced and fixed to the skull with [place] mini screws and plates. The incision was then irrigated with antibiotic infused saline and closed in the standard layered fashion. Sterile dressing was applied. The patient was awakened, extubated, and transported to the recovery room with stable vital signs. Brief Post-op Note NAME: Anupama Vasquez : 1970 PROCEDURE DATE: 09/23/2024 Surgeon: Surgeons and Role: * Jair Espinal MD - Primary Assistants: None Staff: Tree Loader Meat Primary: Javier Argueta RN Tree Loader Meat Relief: Julia Lofton RN; Sherrie Leiva RN Scrub Person: ST Ester Pre-op Diagnosis: brain tumor Procedure Details: Procedure(s): SYNAPTIVE CRANIOTOMY EXCISION TUMOR (Right) - Wound Class: Clean - Incision Closure: Deep and Superficial Layers Anesthesia Type: General * No Diagnosis Codes entered * Complications: none Additions (Drains, Specimens, Implants): Drains: NG/OG Tube 09/23/24 Nasogastric Right nostril (Active) Status Clamped 09/23/241537 Site Assessment Clean;Dry;Intact 09/23/241537 Secured at (cm) 55 cm 05/07/25 1538 Securement Method Plastic tape;Secured right 09/23/24 1538 Dressing Status/Interventions Clean;Dry 09/23/24 1538 Urinary Catheter 09/19/24 (Active) Catheter Status Patent 09/23/24 1538 Site Assessment Clean;Skin intact 09/23/24 1538 Collection Container Standard drainage bag/container 09/23/24 1538 Securement Method Securing device (Describe);Secured left 09/23/24 1538 Tamper Evident Seal Intact No 09/23/24 1156 Reason for Continuing Strict I&O in critically ill patient 09/23/24 1538 Urine Color Yellow/straw 09/23/24 1620 Urine Appearance Clear 09/23/24 1620 Output (mL) 300 mL 09/23/24 1620 Specimens: ID Type Source Tests Collected by Time A : BRAIN TUMOR Tissue Brain SURGICAL PATHOLOGY Jair Espinal MD 09/23/2024 1506 Implants: Implant Name Type Inv. Item Serial No. Marketing Operations Associate Lot No. LRB No. Used Action PATCH DURA 3X3IN THK3.5MM CRNMXF DRMTRX-ONLAY + NPOR RGNRT RPL [id number] - [id number] Graft PATCH DURA 3X3IN THK3.5MM CRNMXF DRMTRX-ONLAY + NPOR RGNRT RPL [id number] JIM CRANIOMAXILLOFACIAL [id number] Right 1 Implanted PLATE BN 12MM 2 HL LP BAR TAB UNV NEURO II CRNMXF TI NS 1.5 - [id number] Plate PLATE BN 12MM 2 HL LP BAR TAB UNV NEURO II CRNMXF TI NS 1.5 JIM [employer]ANIOMAXILL[employer] Right 2 Implanted COVER BUR HL CRNFCL 10MMX.5MM LP TAB STRL LF DISP - [id number] Plate COVER BUR HL CRNFCL 10MMX.5MM LP TAB STRL LF DISP JIM [employer]ANIOMAX[employer] Right 1 Implanted SCREW BN 4MM 1.5MM SLF DRL XPN CRNMXF STRL MUST ORDER IN MULTIPLES OF 5EA - [id number] Screw SCREW BN 4MM 1.5MM SLF DRL XPN CRNMXF STRL MUST ORDER IN MULTIPLES OF 5EA JIM CRANIOMAXILLOF[employer] Right 7 Implanted Estimated Blood Loss: 25 ml OB Surgical Procedure Blood Loss: Anesthesia EBL: * No values recorded between 09/23/2024 1:18 PM and 09/23/2024 3:31 PM * OB QBL: * No values recorded between 09/23/2024 1:18 PM and 09/23/2024 3:31 PM * Condition: stable Findings: high grade glioma Evidence of infection was not visualized at time of surgery. Query Response Note AUTOMATED QUERY TEXT: Type of Skin Ulcer: This query seeks further clarification of documentation to reflect all conditions that you are monitoring, evaluating, treating or that extend hospitalization or utilize additional resources. Please utilize your independent clinical judgment when addressing the question(s) below. Please provide further specificity, if known. Clinical indicators include: left buttock ulcer Options provided: -- Pressure ulcer -- Diabetic skin ulcer -- Venous stasis ulcer -- Other - I will add my own diagnosis -- Dismiss - Not applicable / Not valid AUTOMATED QUERY RESPONSE TEXT: Unable to determine- pre-existing wound being treated prior to this admission. Please refer to wound care documentation. Pressure ulcer vs skin tear Electronically signed by: Anjelica Venegas RN 09/23/2024 10:00 AM Problem: Safety - Medical Restraint Goal: Free from restraint(s) (Restraint for Interference with Policy Services Representative) Description: INTERVENTIONS: 1. ONCE/SHIFT or MINIMUM Q12H: Assess and document the continuing need for restraints 2. Order is valid for the duration of the episode of care 3. Discontinue at the earliest possible time once the reason for restraints no longer exists 4. Identify and implement measures to help patient regain control 5. Food, fluids, and toilet offered at a minimum of every 2 hours 6. RN modifies the patient's plan of care by entering a problem statement related to safety; individualizes the safety outcome Outcome: Not Progressing Note: Evaluation of progress towards goal: Patient requiring continuation of restraint due to pulling at NG tube. RN allowed patient to have restraint undone while RN was in room preparing meds and cleaning, patient immediately grabbed NG tube. Problem: Pain Goal: Patient goal is pain score less than 4, able to rest, and participant in treatment plan as appropriate Description: INTERVENTIONS: 1. Encourage patient or legal passenger relations representative to report early pain and ask for pain medicine when needed 2. Assess pain using appropriate pain scale and include the scale used when documenting 3. Administer analgesics based on type and severity of pain and evaluate response within appropriate time frame 4. Implement non-pharmacological measures as appropriate and evaluate response 5. Consider cultural and social influences on pain and pain management 6. Notify LIP if interventions ineffective or patient reports new pain 7. Monitor vital signs including pulse ox, end-tidal CO2 based on pain intervention 8. Reassess pain per policy 9. Teach patient or legal passenger relations representative interventions for comforting Outcome: Progressing Note: Evaluation of progress towards goal: Pain is managed to a tolerable level with PRN pain meds and non-pharm interventions, assessments completed, VS monitored, patient encouraged to report pain early, med administration as ordered Problem: Safety Goal: Patient will be injury free during hospitalization Description: INTERVENTIONS: 1. Assess patient's risk for falls and implement fall prevention plan of care per policy 2. Provide and maintain a safe environment 3. Proper use of double Identifiers 4. Medication administration using the 5 rights 5. Hand hygiene 6. Specimens are labeled at the bedside 7. Instruct patient/ patient passenger relations representative about use of safety devices 8. Include patient/ patient passenger relations representative in decisions related to safety Outcome: Progressing Note: Evaluation of progress towards goal: Patient safety is maintained. Patient is free from injury, side rails are up x2, call light is within reach, and bed is in lowest position. Problem: Infection Goal: Absence of infection during hospitalization Description: INTERVENTIONS 1. Assess and monitor for signs and symptoms of infection. 2. Monitor lab/diagnostic results. 3. Monitor all insertion sites i.e., indwelling lines, tubes and drains. 4. Monitor endotracheal (as able) and nasal secretions for changes in amount and color. 5. Administer medications as ordered. 6. Instruct and encourage patient and family to use good hand hygiene technique. 7. Identify and instruct patient/patient passenger relations representative in use of appropriate isolation precautions for identified infection/symptoms. 8. Provide and discuss with patient/patient passenger relations representative on educational MDRO sheet. 9. Encourage and monitor nutritional status daily and consult digital analytics manager if indicated. 10. Implement neutropenic guidelines as needed. Outcome: Progressing Note: Evaluation of progress towards goal: Handwashing and standard precautions maintained. Patient remains free from infection through shift and has not shown any additional signs of infection at this time. Will continue to educate on infection prevention. Problem: Knowledge Deficit Goal: Patient/patient passenger relations representative demonstrates understanding of disease process, treatment plan, medications, and discharge instructions Description: INTERVENTIONS 1. Complete learning assessment and assess knowledge base 2. Provide teaching at level of understanding 3. Provide teaching via preferred learning method(s) Outcome: Progressing Note: Evaluation of progress towards goal: Patient is included in plan of care. All questions are answered at this time. Will continue to educate. Problem: Discharge Planning Goal: Discharge to post-acute care, other facility, or home with appropriate resources Description: Patient's goal is: INTERVENTIONS 1. Conduct assessment to determine patient/family and health care team treatment goals, and need for post-acute services based on payer coverage, community resources, and patient preferences, and barriers to discharge 2. Coordinate with Social work, Care Navigation, and Utilization Review to arrange appropriate level of services according to patient's needs based on patient preference and payer coverage in collaboration with the physician and health care team 3. Address psychosocial, clinical, and financial barriers to discharge as identified in assessment in conjunction with the patient/family and health care team 4. Consult appropriate ancillary services (i.e.. PT/OT/ST, etc) as needed 5. Communicate with and update the patient/family, physician, and health care team regarding progress on the discharge plan 6. Identify discharge learning needs (meds, wound care, etc). 7. Arrange for needed discharge transportation as appropriate Outcome: Progressing Note: Evaluation of progress towards goal: Patient is included in all discharge planning. Social work, PT/OT are involved. Problem: Potential for Compromised Skin Integrity Goal: Skin integrity is maintained or improved Description: Patient's goal is: INTERVENTIONS 1. Perform initial skin assessment on admission and as needed 2. Turn patient every 2 hours and PRN 3. Relieve pressure to bony prominences 4. Avoid shearing 5. Keep skin clean and dry 6. Alternate a full bath with partial baths for elderly 7. Apply lotion/moisturizer on skin 8. Monitor patient's hygiene practices 9. Float heels 10. Collaborate with interdisciplinary team and initiate plans and interventions as needed Outcome: Progressing Note: Evaluation of progress towards goal: No new skin breakdown noted. Patient presented with two small skin tears to left inner thigh and left buttocks. Foam dressings maintained. Patient turned and repositioned every 2 hours. Goal: Patient's nutritional intake is adequate Description: Patient's goal is: INTERVENTIONS 1. Assess and monitor food intake and supplements, patient food preferences, nausea, vomiting, labs, oral cavity (gums, teeth, tongue, mucosa), proper denture fit, and cultural beliefs 2. Monitor for signs of hypoglycemia and hyperglycemia 3. Collaborate with interdisciplinary team and initiate plan and interventions as ordered 4. Monitor patient's weight 5. Assist patient with meals/food selection 6. Assist patient with eating 7. Allow adequate time for meals 8. Provide pleasant environment during mealtime 9. Increase social contact during mealtimes 10. Plan activities to conserve energy 11. Encourage/perform oral hygiene as appropriate 12. Encourage patient to take dietary supplement as ordered 13. Collaborate with clinical digital analytics manager 14. Include patient/ patient's passenger relations representative in decisions related to nutrition Outcome: Progressing Note: Evaluation of progress towards goal: Patient maintained on continuous tube feeds; feed stopped at midnight for craniotomy today. Problem: Urinary Incontinence Goal: Perineal skin integrity is maintained or improved Description: INTERVENTIONS 1. Assess genitourinary system, perineal skin, labs (urinalysis), and history of incontinence to include past management, aggravating, and alleviating factors 2. Keep skin clean and dry 3. Apply skin protectant 4. Develop skin care regimen 5. Provide privacy when changing patients incontinence device to maintain their dignity 6. Consider placing an indwelling catheter 7. Collaborate with interdisciplinary team and initiate plans and interventions as needed Outcome: Progressing Note: Evaluation of progress towards goal: Alexis catheter maintained for retention. No skin breakdown noted. Brief kept clean and dry. Problem: Moderate - High Risk Fall Score Description: García Fall Score of =/> 25 or indicated by [facility] Assessment Goal: Patient should be free from fall Description: Interventions: 1. [place] to environment 2. Hourly rounds addressing the 4 P's (Pain, Positioning, Possessions, Potty) 3. Clear area of hazards (spills, clutter, electrical cords, unnecessary equipment) 4. Place equipment (bed & TV controls, call light, phone, urinal) within reach 5. Encourage patient to wear glasses and hearing aides as appropriate 6. Maintain bed in lowest position 7. Lock wheels on bed/wheelchair 8. Provide adequate lighting, including night light 9. Assess need for additional bedding, food/fluids, pain med's prior to sleep/routinely 10. Provide gripper slippers or personal non-skid footwear 11. Teach patient and patient passenger relations representative to maintain environment for safety and engage in all aspects of fall prevention program 12. Remind patient to call for help before getting out of bed 13. Initiate bed/chair/exit alarms supportive devices as appropriate, (chair wedge, no-skid floor mat, raised edge mattress, hip protectors) 14. Locate patient bed assignment for optimal visualization 15. Evaluate and identify Safe Patient Handling Equipment needs 16. Provide supervision when out of bed or chair 17. Utilize gait belt as needed to assist with ambulation 18. Place adaptive equipment (cane, walker) within reach 19. Request patient passenger relations representative bring adaptive equipment/mobility aids from home or obtain and provide as needed 20. Consult pharmacy regarding effects of med's affecting mobility, cognition, and alternatives 21. Obtain physician order for PT if risk factors associated with mobility are present 22. Obtain physician order for OT as appropriate 23. Utilize diversional activities 24. Educate patient and patient passenger relations representative how to maintain a safe environment during visitation times (notify nurse prior to leaving bedside) 25. Consider appropriateness of medical or non-medical billing coordinator 26. Set up voiding schedule as appropriate (every 2 hours) Outcome: Progressing Note: Evaluation of progress towards goal: Patient is free from falls at this time. Safety precautions taken, non-slip socks applied, room free from clutter, and bed is in lowest position. Problem: Neurosensory - Adult Goal: Achieves stable or improved neurological status Description: Patient's goal is: INTERVENTIONS 1. Assess for and report changes in neurological status 2. Initiate measures to prevent increased intracranial pressure 3. Maintain blood pressure and fluid volume within ordered parameters to optimize cerebral perfusion and minimize risk of hemorrhage 4. Monitor temperature, glucose, and sodium. Initiate appropriate interventions as ordered Outcome: Progressing Note: Evaluation of progress towards goal: Orientation status improving, oriented x2-3. Moves all extremities, left side weaker. Denies numbness or tingling. Problem: Safety - Medical Restraint Goal: Remains free of injury from restraints (Restraint for Interference with Policy Services Representative) Description: INTERVENTIONS: 1. Determine that other, less restrictive measures have been tried or would not be effective before applying the restraint 2. Evaluate the patient's condition at the time of restraint application 3. Inform patient/family regarding the reason for restraint 4. Q2H: Monitor safety, Vital signs, psychosocial status, signs of injury, skin integrity, circulation, neurovascular status in affected extremities, respiratory status, comfort, nutrition and hydration, hygiene, ROM, elimination needs 5. Doctor will be notified of restraint 6. RN properly applies restraints per physician order Outcome: Progressing Note: Evaluation of progress towards goal: Q2 hour restraint checks completed including pulse assessment, skin integrity, range of motion, offered hygiene, patient NPO. DISCHARGE PLANNING NOTE Case discussed in daily transition rounds and chart reviewed by CN. Barriers to discharge include IV Keppra, IV Decadron, IV ATB, alexis, D 2.5, NG TF, right mitt/restraint, OR- cran 09/23, alexis Discharge Plan remains: return to [facility]. [facility] is ready to accept patient at discharge. Patient will require a precert for SNF placement. CN will continue to follow and is available should any further needs arise. - RAMIREZ COTTO 09/22/24 9:50 AM Problem: Pain Goal: Patient goal is pain score less than 4, able to rest, and participant in treatment plan as appropriate Description: INTERVENTIONS: 1. Encourage patient or legal passenger relations representative to report early pain and ask for pain medicine when needed 2. Assess pain using appropriate pain scale and include the scale used when documenting 3. Administer analgesics based on type and severity of pain and evaluate response within appropriate time frame 4. Implement non-pharmacological measures as appropriate and evaluate response 5. Consider cultural and social influences on pain and pain management 6. Notify LIP if interventions ineffective or patient reports new pain 7. Monitor vital signs including pulse ox, end-tidal CO2 based on pain intervention 8. Reassess pain per policy 9. Teach patient or legal passenger relations representative interventions for comforting Outcome: Progressing Note: Evaluation of progress towards goal: Char Dust Cleaner And Salvager assessed pt pain in the beginning and throughout shift. Pt stated a tolerable pain goal was zero. Char Dust Cleaner And Salvager medicated pt pain per order. Will continue to monitor. Problem: Safety Goal: Patient will be injury free during hospitalization Description: INTERVENTIONS: 1. Assess patient's risk for falls and implement fall prevention plan of care per policy 2. Provide and maintain a safe environment 3. Proper use of double Identifiers 4. Medication administration using the 5 rights 5. Hand hygiene 6. Specimens are labeled at the bedside 7. Instruct patient/ patient passenger relations representative about use of safety devices 8. Include patient/ patient passenger relations representative in decisions related to safety Outcome: Progressing Note: Evaluation of progress towards goal: patient remains free from injury at this time. Safety precautions in place. Problem: Infection Goal: Absence of infection during hospitalization Description: INTERVENTIONS 1. Assess and monitor for signs and symptoms of infection. 2. Monitor lab/diagnostic results. 3. Monitor all insertion sites i.e., indwelling lines, tubes and drains. 4. Monitor endotracheal (as able) and nasal secretions for changes in amount and color. 5. Administer medications as ordered. 6. Instruct and encourage patient and family to use good hand hygiene technique. 7. Identify and instruct patient/patient passenger relations representative in use of appropriate isolation precautions for identified infection/symptoms. 8. Provide and discuss with patient/patient passenger relations representative on educational MDRO sheet. 9. Encourage and monitor nutritional status daily and consult digital analytics manager if indicated. 10. Implement neutropenic guidelines as needed. Outcome: Progressing Note: Evaluation of progress towards goal: Char Dust Cleaner And Salvager assessed pt risk for infection in the beginning and throughout shift. Pt remains afebrile. Will continue to monitor. Problem: Knowledge Deficit Goal: Patient/patient passenger relations representative demonstrates understanding of disease process, treatment plan, medications, and discharge instructions Description: INTERVENTIONS 1. Complete learning assessment and assess knowledge base 2. Provide teaching at level of understanding 3. Provide teaching via preferred learning method(s) Outcome: Progressing Note: Evaluation of progress towards goal: Char Dust Cleaner And Salvager educated pt on admission disease, medications, treatment, and discharge planning. Will continue to monitor. Problem: Discharge Planning Goal: Discharge to post-acute care, other facility, or home with appropriate resources Description: Patient's goal is: INTERVENTIONS 1. Conduct assessment to determine patient/family and health care team treatment goals, and need for post-acute services based on payer coverage, community resources, and patient preferences, and barriers to discharge 2. Coordinate with Social work, Care Navigation, and Utilization Review to arrange appropriate level of services according to patient's needs based on patient preference and payer coverage in collaboration with the physician and health care team 3. Address psychosocial, clinical, and financial barriers to discharge as identified in assessment in conjunction with the patient/family and health care team 4. Consult appropriate ancillary services (i.e.. PT/OT/ST, etc) as needed 5. Communicate with and update the patient/family, physician, and health care team regarding progress on the discharge plan 6. Identify discharge learning needs (meds, wound care, etc). 7. Arrange for needed discharge transportation as appropriate Outcome: Progressing Note: Evaluation of progress towards goal: Patient continues to work towards discharge, pending crani tomorrow, TF not at goal, IV antibiotics, discharge planning consulted, plan of care ongoing. Problem: Potential for Compromised Skin Integrity Goal: Skin integrity is maintained or improved Description: Patient's goal is: INTERVENTIONS 1. Perform initial skin assessment on admission and as needed 2. Turn patient every 2 hours and PRN 3. Relieve pressure to bony prominences 4. Avoid shearing 5. Keep skin clean and dry 6. Alternate a full bath with partial baths for elderly 7. Apply lotion/moisturizer on skin 8. Monitor patient's hygiene practices 9. Float heels 10. Collaborate with interdisciplinary team and initiate plans and interventions as needed Outcome: Progressing Note: Evaluation of progress towards goal: Patient's skin integrity is maintained, report writer assessed at beginning of shift and throughout, no changes noted, patient is repositioned every two hours and as needed. Goal: Patient's nutritional intake is adequate Description: Patient's goal is: INTERVENTIONS 1. Assess and monitor food intake and supplements, patient food preferences, nausea, vomiting, labs, oral cavity (gums, teeth, tongue, mucosa), proper denture fit, and cultural beliefs 2. Monitor for signs of hypoglycemia and hyperglycemia 3. Collaborate with interdisciplinary team and initiate plan and interventions as ordered 4. Monitor patient's weight 5. Assist patient with meals/food selection 6. Assist patient with eating 7. Allow adequate time for meals 8. Provide pleasant environment during mealtime 9. Increase social contact during mealtimes 10. Plan activities to conserve energy 11. Encourage/perform oral hygiene as appropriate 12. Encourage patient to take dietary supplement as ordered 13. Collaborate with clinical digital analytics manager 14. Include patient/ patient's passenger relations representative in decisions related to nutrition Outcome: Progressing Note: Evaluation of progress towards goal: Patient's nutrition is maintained, patient is not currently at goal with tube feed, increasing ever 8 hours by 10 per order, plan of care ongoing. Problem: Urinary Incontinence Goal: Perineal skin integrity is maintained or improved Description: INTERVENTIONS 1. Assess genitourinary system, perineal skin, labs (urinalysis), and history of incontinence to include past management, aggravating, and alleviating factors 2. Keep skin clean and dry 3. Apply skin protectant 4. Develop skin care regimen 5. Provide privacy when changing patients incontinence device to maintain their dignity 6. Consider placing an indwelling catheter 7. Collaborate with interdisciplinary team and initiate plans and interventions as needed Outcome: Progressing Note: Evaluation of progress towards goal: Patient's perineal skin integrity is maintained, report writer assessed at beginning of shift and throughout, no changes noted, alexis cathter in place, fallon care provided. Problem: Moderate - High Risk Fall Score Description: García Fall Score of =/> 25 or indicated by [facility] Assessment Goal: Patient should be free from fall Description: Interventions: 1. [place] to environment 2. Hourly rounds addressing the 4 P's (Pain, Positioning, Possessions, Potty) 3. Clear area of hazards (spills, clutter, electrical cords, unnecessary equipment) 4. Place equipment (bed & TV controls, call light, phone, urinal) within reach 5. Encourage patient to wear glasses and hearing aides as appropriate 6. Maintain bed in lowest position 7. Lock wheels on bed/wheelchair 8. Provide adequate lighting, including night light 9. Assess need for additional bedding, food/fluids, pain med's prior to sleep/routinely 10. Provide gripper slippers or personal non-skid footwear 11. Teach patient and patient passenger relations representative to maintain environment for safety and engage in all aspects of fall prevention program 12. Remind patient to call for help before getting out of bed 13. Initiate bed/chair/exit alarms supportive devices as appropriate, (chair wedge, no-skid floor mat, raised edge mattress, hip protectors) 14. Locate patient bed assignment for optimal visualization 15. Evaluate and identify Safe Patient Handling Equipment needs 16. Provide supervision when out of bed or chair 17. Utilize gait belt as needed to assist with ambulation 18. Place adaptive equipment (cane, walker) within reach 19. Request patient passenger relations representative bring adaptive equipment/mobility aids from home or obtain and provide as needed 20. Consult pharmacy regarding effects of med's affecting mobility, cognition, and alternatives 21. Obtain physician order for PT if risk factors associated with mobility are present 22. Obtain physician order for OT as appropriate 23. Utilize diversional activities 24. Educate patient and patient passenger relations representative how to maintain a safe environment during visitation times (notify nurse prior to leaving bedside) 25. Consider appropriateness of medical or non-medical billing coordinator 26. Set up voiding schedule as appropriate (every 2 hours) Outcome: Progressing Note: Evaluation of progress towards goal: Char Dust Cleaner And Salvager assessed pt fall precautions in the beginning and throughout shift. Pt room left free of clutter, pt has all belongings and call light within reach. Will continue to monitor. Problem: Neurosensory - Adult Goal: Achieves stable or improved neurological status Description: Patient's goal is: INTERVENTIONS 1. Assess for and report changes in neurological status 2. Initiate measures to prevent increased intracranial pressure 3. Maintain blood pressure and fluid volume within ordered parameters to optimize cerebral perfusion and minimize risk of hemorrhage 4. Monitor temperature, glucose, and sodium. Initiate appropriate interventions as ordered Outcome: Progressing Note: Evaluation of progress towards goal: Patient's neuro status remains stable at this time, no changes noted, will continue to perform neuro checks every four hours and as needed. Problem: Safety - Medical Restraint Goal: Remains free of injury from restraints (Restraint for Interference with Policy Services Representative) Description: INTERVENTIONS: 1. Determine that other, less restrictive measures have been tried or would not be effective before applying the restraint 2. Evaluate the patient's condition at the time of restraint application 3. Inform patient/family regarding the reason for restraint 4. Q2H: Monitor safety, Vital signs, psychosocial status, signs of injury, skin integrity, circulation, neurovascular status in affected extremities, respiratory status, comfort, nutrition and hydration, hygiene, ROM, elimination needs 5. Doctor will be notified of restraint 6. RN properly applies restraints per physician order Outcome: Progressing Note: Evaluation of progress towards goal: Patient remains free from injury from restrains, restrains remain in place, report writer checks pulses, range of motion, offers hygiene, nutrition and repositioning every two hours. Goal: Free from restraint(s) (Restraint for Interference with Policy Services Representative) Description: INTERVENTIONS: 1. ONCE/SHIFT or MINIMUM Q12H: Assess and document the continuing need for restraints 2. Order is valid for the duration of the episode of care 3. Discontinue at the earliest possible time once the reason for restraints no longer exists 4. Identify and implement measures to help patient regain control 5. Food, fluids, and toilet offered at a minimum of every 2 hours 6. RN modifies the patient's plan of care by entering a problem statement related to safety; individualizes the safety outcome Outcome: Progressing Note: Evaluation of progress towards goal: Patient remains in restraints at this time, order remains vaild for current shift, report writer performs necessary checks, plan of care ongoing. Problem: Pain Goal: Patient goal is pain score less than 4, able to rest, and participant in treatment plan as appropriate Description: INTERVENTIONS: 1. Encourage patient or legal passenger relations representative to report early pain and ask for pain medicine when needed 2. Assess pain using appropriate pain scale and include the scale used when documenting 3. Administer analgesics based on type and severity of pain and evaluate response within appropriate time frame 4. Implement non-pharmacological measures as appropriate and evaluate response 5. Consider cultural and social influences on pain and pain management 6. Notify LIP if interventions ineffective or patient reports new pain 7. Monitor vital signs including pulse ox, end-tidal CO2 based on pain intervention 8. Reassess pain per policy 9. Teach patient or legal passenger relations representative interventions for comforting Outcome: Progressing Note: Evaluation of progress towards goal: Pain is managed to a tolerable level with PRN pain meds and non-pharm interventions, assessments completed, VS monitored, patient encouraged to report pain early, med administration as ordered Problem: Safety Goal: Patient will be injury free during hospitalization Description: INTERVENTIONS: 1. Assess patient's risk for falls and implement fall prevention plan of care per policy 2. Provide and maintain a safe environment 3. Proper use of double Identifiers 4. Medication administration using the 5 rights 5. Hand hygiene 6. Specimens are labeled at the bedside 7. Instruct patient/ patient passenger relations representative about use of safety devices 8. Include patient/ patient passenger relations representative in decisions related to safety Outcome: Progressing Note: Evaluation of progress towards goal: Patient safety is maintained. Patient is free from injury, side rails are up x2, call light is within reach, and bed is in lowest position. Problem: Infection Goal: Absence of infection during hospitalization Description: INTERVENTIONS 1. Assess and monitor for signs and symptoms of infection. 2. Monitor lab/diagnostic results. 3. Monitor all insertion sites i.e., indwelling lines, tubes and drains. 4. Monitor endotracheal (as able) and nasal secretions for changes in amount and color. 5. Administer medications as ordered. 6. Instruct and encourage patient and family to use good hand hygiene technique. 7. Identify and instruct patient/patient passenger relations representative in use of appropriate isolation precautions for identified infection/symptoms. 8. Provide and discuss with patient/patient passenger relations representative on educational MDRO sheet. 9. Encourage and monitor nutritional status daily and consult digital analytics manager if indicated. 10. Implement neutropenic guidelines as needed. Outcome: Progressing Note: Evaluation of progress towards goal: Handwashing and standard precautions maintained. Patient remains free from infection through shift and has not shown any additional signs of infection at this time. Will continue to educate on infection prevention. Problem: Knowledge Deficit Goal: Patient/patient passenger relations representative demonstrates understanding of disease process, treatment plan, medications, and discharge instructions Description: INTERVENTIONS 1. Complete learning assessment and assess knowledge base 2. Provide teaching at level of understanding 3. Provide teaching via preferred learning method(s) Outcome: Progressing Note: Evaluation of progress towards goal: Patient is included in plan of care. All questions are answered at this time. Will continue to educate. Problem: Discharge Planning Goal: Discharge to post-acute care, other facility, or home with appropriate resources Description: Patient's goal is: INTERVENTIONS 1. Conduct assessment to determine patient/family and health care team treatment goals, and need for post-acute services based on payer coverage, community resources, and patient preferences, and barriers to discharge 2. Coordinate with Social work, Care Navigation, and Utilization Review to arrange appropriate level of services according to patient's needs based on patient preference and payer coverage in collaboration with the physician and health care team 3. Address psychosocial, clinical, and financial barriers to discharge as identified in assessment in conjunction with the patient/family and health care team 4. Consult appropriate ancillary services (i.e.. PT/OT/ST, etc) as needed 5. Communicate with and update the patient/family, physician, and health care team regarding progress on the discharge plan 6. Identify discharge learning needs (meds, wound care, etc). 7. Arrange for needed discharge transportation as appropriate Outcome: Progressing Note: Evaluation of progress towards goal: Patient is included in all discharge planning. Social work, PT/OT are involved. Problem: Potential for Compromised Skin Integrity Goal: Skin integrity is maintained or improved Description: Patient's goal is: INTERVENTIONS 1. Perform initial skin assessment on admission and as needed 2. Turn patient every 2 hours and PRN 3. Relieve pressure to bony prominences 4. Avoid shearing 5. Keep skin clean and dry 6. Alternate a full bath with partial baths for elderly 7. Apply lotion/moisturizer on skin 8. Monitor patient's hygiene practices 9. Float heels 10. Collaborate with interdisciplinary team and initiate plans and interventions as needed Outcome: Progressing Note: Evaluation of progress towards goal: Skin tears present to left thigh and buttocks. Turned and repositioned every two hours. Goal: Patient's nutritional intake is adequate Description: Patient's goal is: INTERVENTIONS 1. Assess and monitor food intake and supplements, patient food preferences, nausea, vomiting, labs, oral cavity (gums, teeth, tongue, mucosa), proper denture fit, and cultural beliefs 2. Monitor for signs of hypoglycemia and hyperglycemia 3. Collaborate with interdisciplinary team and initiate plan and interventions as ordered 4. Monitor patient's weight 5. Assist patient with meals/food selection 6. Assist patient with eating 7. Allow adequate time for meals 8. Provide pleasant environment during mealtime 9. Increase social contact during mealtimes 10. Plan activities to conserve energy 11. Encourage/perform oral hygiene as appropriate 12. Encourage patient to take dietary supplement as ordered 13. Collaborate with clinical digital analytics manager 14. Include patient/ patient's passenger relations representative in decisions related to nutrition Outcome: Progressing Note: Evaluation of progress towards goal: Receiving continuous tube feeds, not yet at goal. Problem: Urinary Incontinence Goal: Perineal skin integrity is maintained or improved Description: INTERVENTIONS 1. Assess genitourinary system, perineal skin, labs (urinalysis), and history of incontinence to include past management, aggravating, and alleviating factors 2. Keep skin clean and dry 3. Apply skin protectant 4. Develop skin care regimen 5. Provide privacy when changing patients incontinence device to maintain their dignity 6. Consider placing an indwelling catheter 7. Collaborate with interdisciplinary team and initiate plans and interventions as needed Outcome: Progressing Note: Evaluation of progress towards goal: Alexis catheter maintained, no breakdown noted Problem: Moderate - High Risk Fall Score Description: García Fall Score of =/> 25 or indicated by [facility] Assessment Goal: Patient should be free from fall Description: Interventions: 1. [place] to environment 2. Hourly rounds addressing the 4 P's (Pain, Positioning, Possessions, Potty) 3. Clear area of hazards (spills, clutter, electrical cords, unnecessary equipment) 4. Place equipment (bed & TV controls, call light, phone, urinal) within reach 5. Encourage patient to wear glasses and hearing aides as appropriate 6. Maintain bed in lowest position 7. Lock wheels on bed/wheelchair 8. Provide adequate lighting, including night light 9. Assess need for additional bedding, food/fluids, pain med's prior to sleep/routinely 10. Provide gripper slippers or personal non-skid footwear 11. Teach patient and patient passenger relations representative to maintain environment for safety and engage in all aspects of fall prevention program 12. Remind patient to call for help before getting out of bed 13. Initiate bed/chair/exit alarms supportive devices as appropriate, (chair wedge, no-skid floor mat, raised edge mattress, hip protectors) 14. Locate patient bed assignment for optimal visualization 15. Evaluate and identify Safe Patient Handling Equipment needs 16. Provide supervision when out of bed or chair 17. Utilize gait belt as needed to assist with ambulation 18. Place adaptive equipment (cane, walker) within reach 19. Request patient passenger relations representative bring adaptive equipment/mobility aids from home or obtain and provide as needed 20. Consult pharmacy regarding effects of med's affecting mobility, cognition, and alternatives 21. Obtain physician order for PT if risk factors associated with mobility are present 22. Obtain physician order for OT as appropriate 23. Utilize diversional activities 24. Educate patient and patient passenger relations representative how to maintain a safe environment during visitation times (notify nurse prior to leaving bedside) 25. Consider appropriateness of medical or non-medical billing coordinator 26. Set up voiding schedule as appropriate (every 2 hours) Outcome: Progressing Note: Evaluation of progress towards goal: Patient is free from falls at this time. Safety precautions taken, non-slip socks applied, room free from clutter, and bed is in lowest position. Problem: Neurosensory - Adult Goal: Achieves stable or improved neurological status Description: Patient's goal is: INTERVENTIONS 1. Assess for and report changes in neurological status 2. Initiate measures to prevent increased intracranial pressure 3. Maintain blood pressure and fluid volume within ordered parameters to optimize cerebral perfusion and minimize risk of hemorrhage 4. Monitor temperature, glucose, and sodium. Initiate appropriate interventions as ordered Outcome: Progressing Note: Evaluation of progress towards goal: Alert to self and birthday intermittently. Moves all extremities, weakness to the left side. Problem: Safety - Medical Restraint Goal: Remains free of injury from restraints (Restraint for Interference with Policy Services Representative) Description: INTERVENTIONS: 1. Determine that other, less restrictive measures have been tried or would not be effective before applying the restraint 2. Evaluate the patient's condition at the time of restraint application 3. Inform patient/family regarding the reason for restraint 4. Q2H: Monitor safety, Vital signs, psychosocial status, signs of injury, skin integrity, circulation, neurovascular status in affected extremities, respiratory status, comfort, nutrition and hydration, hygiene, ROM, elimination needs 5. Doctor will be notified of restraint 6. RN properly applies restraints per physician order Outcome: Progressing Note: Evaluation of progress towards goal: Trialed other measures before moving to restraints. Q2 hour checks completed including pulses, skin integrity, respiratory status, comfort, nutrition, hygiene, range of motion and elimination needs. DISCHARGE PLANNING NOTE Referral sent to. [facility] (P#: ; F#: ) Images from the original note were not included. DISCHARGE PLANNING NOTE [employer] left messages for children, introduced self, and explained role- wait return call. Patient educated on safe discharge plan. Pt admitted 09/18/2024 with Brain mass [G93.89] BRANDON (acute kidney injury) [N17.9] Altered mental status, unspecified altered mental status type [R41.82] AMS (altered mental status) [R41.82] per chart review. Consults: Nephrology, Neurosurgery, and Urology Discharge Barriers per Daily Transition Rounds and chart review: IV Keppra, IV Decadron, IV ATB, alexis, D 2.5, NG TF, right mitt, OR- cran 09/23 Past Medical History: Diagnosis Date MS (multiple sclerosis) ([facility]) 2012 Prior to admission patient was a skilled patient at [facility] and family is interested in patient returning at discharge. Social work task RC to send referral to [facility]. Patient will require precert for placement. PCP: JACQUELINE LUNA Pharmacy:[facility] [place] PCP and pharmacy confirmed with patient. JACQUELINE LUNA added to Follow Up Providers for Summary of Care communication. Per patient self-report: Drug use: denies Smoking: denies ETOH Use: denies Current discharge plan is: return to SNF Services Requested: Goals: Goals SNF (pt-stated) Evaluation of progress towards goal: SNF recommended, pt agreeable to SNF stating she is not able to care for self at home at this time Will continue to follow as plan of care develops. CN discussed benefits and importance of medication compliance and follow ups. Please feel free to reach out for any discharge planning questions. - RAMIREZ COTTO 09/21/24 3:15 PM Problem: Pain Goal: Patient goal is pain score less than 4, able to rest, and participant in treatment plan as appropriate Description: INTERVENTIONS: 1. Encourage patient or legal passenger relations representative to report early pain and ask for pain medicine when needed 2. Assess pain using appropriate pain scale and include the scale used when documenting 3. Administer analgesics based on type and severity of pain and evaluate response within appropriate time frame 4. Implement non-pharmacological measures as appropriate and evaluate response 5. Consider cultural and social influences on pain and pain management 6. Notify LIP if interventions ineffective or patient reports new pain 7. Monitor vital signs including pulse ox, end-tidal CO2 based on pain intervention 8. Reassess pain per policy 9. Teach patient or legal passenger relations representative interventions for comforting Outcome: Progressing Note: Evaluation of progress towards goal: Pt has PRN pain meds available during shift, will continue to monitor. Problem: Infection Goal: Absence of infection during hospitalization Description: INTERVENTIONS 1. Assess and monitor for signs and symptoms of infection. 2. Monitor lab/diagnostic results. 3. Monitor all insertion sites i.e., indwelling lines, tubes and drains. 4. Monitor endotracheal (as able) and nasal secretions for changes in amount and color. 5. Administer medications as ordered. 6. Instruct and encourage patient and family to use good hand hygiene technique. 7. Identify and instruct patient/patient passenger relations representative in use of appropriate isolation precautions for identified infection/symptoms. 8. Provide and discuss with patient/patient passenger relations representative on educational MDRO sheet. 9. Encourage and monitor nutritional status daily and consult digital analytics manager if indicated. 10. Implement neutropenic guidelines as needed. Outcome: Progressing Note: Evaluation of progress towards goal: Pt afebrile, vss, will continue to monitor. Problem: Potential for Compromised Skin Integrity Goal: Skin integrity is maintained or improved Description: Patient's goal is: INTERVENTIONS 1. Perform initial skin assessment on admission and as needed 2. Turn patient every 2 hours and PRN 3. Relieve pressure to bony prominences 4. Avoid shearing 5. Keep skin clean and dry 6. Alternate a full bath with partial baths for elderly 7. Apply lotion/moisturizer on skin 8. Monitor patient's hygiene practices 9. Float heels 10. Collaborate with interdisciplinary team and initiate plans and interventions as needed Outcome: Progressing Note: Evaluation of progress towards goal: Pt skin dry and intact, will continue to monitor. Problem: Safety - Medical Restraint Goal: Remains free of injury from restraints (Restraint for Interference with Policy Services Representative) Description: INTERVENTIONS: 1. Determine that other, less restrictive measures have been tried or would not be effective before applying the restraint 2. Evaluate the patient's condition at the time of restraint application 3. Inform patient/family regarding the reason for restraint 4. Q2H: Monitor safety, Vital signs, psychosocial status, signs of injury, skin integrity, circulation, neurovascular status in affected extremities, respiratory status, comfort, nutrition and hydration, hygiene, ROM, elimination needs 5. Doctor will be notified of restraint 6. RN properly applies restraints per physician order Outcome: Progressing Note: Evaluation of progress towards goal: Respiratory status monitored, PRN oxygen available, will continue to monitor. Problem: Knowledge Deficit Goal: Patient/patient passenger relations representative demonstrates understanding of disease process, treatment plan, medications, and discharge instructions Description: INTERVENTIONS 1. Complete learning assessment and assess knowledge base 2. Provide teaching at level of understanding 3. Provide teaching via preferred learning method(s) Outcome: Not Progressing Note: Evaluation of progress towards goal: pt will verbalize understanding of care plan as well as medications and procedures necessary for care. Pt will demonstrate proper use of equipment and medications needed prior to discharge. Education will be individualized to pt needs. Problem: Discharge Planning Goal: Discharge to post-acute care, other facility, or home with appropriate resources Description: Patient's goal is: INTERVENTIONS 1. Conduct assessment to determine patient/family and health care team treatment goals, and need for post-acute services based on payer coverage, community resources, and patient preferences, and barriers to discharge 2. Coordinate with Social work, Care Navigation, and Utilization Review to arrange appropriate level of services according to patient's needs based on patient preference and payer coverage in collaboration with the physician and health care team 3. Address psychosocial, clinical, and financial barriers to discharge as identified in assessment in conjunction with the patient/family and health care team 4. Consult appropriate ancillary services (i.e.. PT/OT/ST, etc) as needed 5. Communicate with and update the patient/family, physician, and health care team regarding progress on the discharge plan 6. Identify discharge learning needs (meds, wound care, etc). 7. Arrange for needed discharge transportation as appropriate Outcome: Not Progressing Note: Evaluation of progress towards goal: pt will understand and verbalize any barriers to discharge. Pt will also communicate with team and family members any discharge needs such as transportation and medication needs. Pt will discuss any questions or concerns with care team. Problem: Safety - Medical Restraint Goal: Free from restraint(s) (Restraint for Interference with Policy Services Representative) Description: INTERVENTIONS: 1. ONCE/SHIFT or MINIMUM Q12H: Assess and document the continuing need for restraints 2. Order is valid for the duration of the episode of care 3. Discontinue at the earliest possible time once the reason for restraints no longer exists 4. Identify and implement measures to help patient regain control 5. Food, fluids, and toilet offered at a minimum of every 2 hours 6. RN modifies the patient's plan of care by entering a problem statement related to safety; individualizes the safety outcome Outcome: Not Progressing Note: Evaluation of progress towards goal: Pt continues to pull at lines/tubes despite multiple attempts at reorientation and redirection, R mitt restraints remains in place for pt's safety. Problem: Pain Goal: Patient goal is pain score less than 4, able to rest, and participant in treatment plan as appropriate Description: INTERVENTIONS: 1. Encourage patient or legal passenger relations representative to report early pain and ask for pain medicine when needed 2. Assess pain using appropriate pain scale and include the scale used when documenting 3. Administer analgesics based on type and severity of pain and evaluate response within appropriate time frame 4. Implement non-pharmacological measures as appropriate and evaluate response 5. Consider cultural and social influences on pain and pain management 6. Notify LIP if interventions ineffective or patient reports new pain 7. Monitor vital signs including pulse ox, end-tidal CO2 based on pain intervention 8. Reassess pain per policy 9. Teach patient or legal passenger relations representative interventions for comforting Outcome: Progressing Note: Evaluation of progress towards goal: patient will verbalize acceptable pain score and alert care team of any pain concerns. Problem: Safety Goal: Patient will be injury free during hospitalization Description: INTERVENTIONS: 1. Assess patient's risk for falls and implement fall prevention plan of care per policy 2. Provide and maintain a safe environment 3. Proper use of double Identifiers 4. Medication administration using the 5 rights 5. Hand hygiene 6. Specimens are labeled at the bedside 7. Instruct patient/ patient passenger relations representative about use of safety devices 8. Include patient/ patient passenger relations representative in decisions related to safety Outcome: Progressing Note: Evaluation of progress towards goal: .pt will remain free from falls throughout hospital stay. Double identifiers used for proper pt identification to prevent safety risks. Problem: Infection Goal: Absence of infection during hospitalization Description: INTERVENTIONS 1. Assess and monitor for signs and symptoms of infection. 2. Monitor lab/diagnostic results. 3. Monitor all insertion sites i.e., indwelling lines, tubes and drains. 4. Monitor endotracheal (as able) and nasal secretions for changes in amount and color. 5. Administer medications as ordered. 6. Instruct and encourage patient and family to use good hand hygiene technique. 7. Identify and instruct patient/patient passenger relations representative in use of appropriate isolation precautions for identified infection/symptoms. 8. Provide and discuss with patient/patient passenger relations representative on educational MDRO sheet. 9. Encourage and monitor nutritional status daily and consult digital analytics manager if indicated. 10. Implement neutropenic guidelines as needed. Outcome: Progressing Note: Evaluation of progress towards goal: pt will show no signs or symptoms of infection prior to discharge. Any unneccessary invasive lines and tubes will be removed if not medically necessary to decrease infection risk. Problem: Neurosensory - Adult Goal: Achieves stable or improved neurological status Description: Patient's goal is: INTERVENTIONS 1. Assess for and report changes in neurological status 2. Initiate measures to prevent increased intracranial pressure 3. Maintain blood pressure and fluid volume within ordered parameters to optimize cerebral perfusion and minimize risk of hemorrhage 4. Monitor temperature, glucose, and sodium. Initiate appropriate interventions as ordered Outcome: Progressing Note: Evaluation of progress towards goal: Pt has showed no acute neuro changes since admission. Q4h neuro checks in place. Awaiting for craniotomy. Problem: Safety - Medical Restraint Goal: Remains free of injury from restraints (Restraint for Interference with Policy Services Representative) Description: INTERVENTIONS: 1. Determine that other, less restrictive measures have been tried or would not be effective before applying the restraint 2. Evaluate the patient's condition at the time of restraint application 3. Inform patient/family regarding the reason for restraint 4. Q2H: Monitor safety, Vital signs, psychosocial status, signs of injury, skin integrity, circulation, neurovascular status in affected extremities, respiratory status, comfort, nutrition and hydration, hygiene, ROM, elimination needs 5. Doctor will be notified of restraint 6. RN properly applies restraints per physician order Outcome: Progressing Note: Evaluation of progress towards goal: Pt's skin remains intact with R mitt restraint in place, pulse present, ROM performed Orders have been placed for the patient to transfer out of the ICU. Sign-out has been communicated to KIRK Venegas with [facility]. Critical Care will sign off upon transfer or starting tomorrow 0700, whichever comes first. Call the critical care DIANE if there are any further questions. Thank you. JACQUELINE Hughes APRN-CNP 09/20/24 1040 Problem: Pain Goal: Patient goal is pain score less than 4, able to rest, and participant in treatment plan as appropriate Description: INTERVENTIONS: 1. Encourage patient or legal passenger relations representative to report early pain and ask for pain medicine when needed 2. Assess pain using appropriate pain scale and include the scale used when documenting 3. Administer analgesics based on type and severity of pain and evaluate response within appropriate time frame 4. Implement non-pharmacological measures as appropriate and evaluate response 5. Consider cultural and social influences on pain and pain management 6. Notify LIP if interventions ineffective or patient reports new pain 7. Monitor vital signs including pulse ox, end-tidal CO2 based on pain intervention 8. Reassess pain per policy 9. Teach patient or legal passenger relations representative interventions for comforting Outcome: Progressing Note: Evaluation of progress towards goal: Pt has PRN pain meds available during shift, will continue to monitor. Problem: Infection Goal: Absence of infection during hospitalization Description: INTERVENTIONS 1. Assess and monitor for signs and symptoms of infection. 2. Monitor lab/diagnostic results. 3. Monitor all insertion sites i.e., indwelling lines, tubes and drains. 4. Monitor endotracheal (as able) and nasal secretions for changes in amount and color. 5. Administer medications as ordered. 6. Instruct and encourage patient and family to use good hand hygiene technique. 7. Identify and instruct patient/patient passenger relations representative in use of appropriate isolation precautions for identified infection/symptoms. 8. Provide and discuss with patient/patient passenger relations representative on educational MDRO sheet. 9. Encourage and monitor nutritional status daily and consult digital analytics manager if indicated. 10. Implement neutropenic guidelines as needed. Outcome: Progressing Note: Evaluation of progress towards goal: Pt afebrile, vss, will continue to monitor. Problem: Knowledge Deficit Goal: Patient/patient passenger relations representative demonstrates understanding of disease process, treatment plan, medications, and discharge instructions Description: INTERVENTIONS 1. Complete learning assessment and assess knowledge base 2. Provide teaching at level of understanding 3. Provide teaching via preferred learning method(s) Outcome: Progressing Note: Evaluation of progress towards goal: Discussed plan with pt and answered questions as needed during shift. Problem: Potential for Compromised Skin Integrity Goal: Skin integrity is maintained or improved Description: Patient's goal is: INTERVENTIONS 1. Perform initial skin assessment on admission and as needed 2. Turn patient every 2 hours and PRN 3. Relieve pressure to bony prominences 4. Avoid shearing 5. Keep skin clean and dry 6. Alternate a full bath with partial baths for elderly 7. Apply lotion/moisturizer on skin 8. Monitor patient's hygiene practices 9. Float heels 10. Collaborate with interdisciplinary team and initiate plans and interventions as needed Outcome: Progressing Note: Evaluation of progress towards goal: Pt skin dry and intact, will continue to monitor. Problem: Urinary Incontinence Goal: Perineal skin integrity is maintained or improved Description: INTERVENTIONS 1. Assess genitourinary system, perineal skin, labs (urinalysis), and history of incontinence to include past management, aggravating, and alleviating factors 2. Keep skin clean and dry 3. Apply skin protectant 4. Develop skin care regimen 5. Provide privacy when changing patients incontinence device to maintain their dignity 6. Consider placing an indwelling catheter 7. Collaborate with interdisciplinary team and initiate plans and interventions as needed Outcome: Progressing Note: Evaluation of progress towards goal: pt has alexis on and skin is being frequently checked for moisture.will keep monitoring Problem: Safety - Medical Restraint Goal: Remains free of injury from restraints (Restraint for Interference with Policy Services Representative) Description: INTERVENTIONS: 1. Determine that other, less restrictive measures have been tried or would not be effective before applying the restraint 2. Evaluate the patient's condition at the time of restraint application 3. Inform patient/family regarding the reason for restraint 4. Q2H: Monitor safety, Vital signs, psychosocial status, signs of injury, skin integrity, circulation, neurovascular status in affected extremities, respiratory status, comfort, nutrition and hydration, hygiene, ROM, elimination needs 5. Doctor will be notified of restraint 6. RN properly applies restraints per physician order Outcome: Progressing Note: Evaluation of progress towards goal: Pt is to remain free from injuries related to restraints by assessing q2 hr. Will keep monitoring Problem: Knowledge Deficit Goal: Patient/patient passenger relations representative demonstrates understanding of disease process, treatment plan, medications, and discharge instructions Description: INTERVENTIONS 1. Complete learning assessment and assess knowledge base 2. Provide teaching at level of understanding 3. Provide teaching via preferred learning method(s) Outcome: Not Progressing Note: Evaluation of progress towards goal: pt will verbalize understanding of care plan as well as medications and procedures necessary for care. Pt will demonstrate proper use of equipment and medications needed prior to discharge. Education will be individualized to pt needs. Problem: Discharge Planning Goal: Discharge to post-acute care, other facility, or home with appropriate resources Description: Patient's goal is: INTERVENTIONS 1. Conduct assessment to determine patient/family and health care team treatment goals, and need for post-acute services based on payer coverage, community resources, and patient preferences, and barriers to discharge 2. Coordinate with Social work, Care Navigation, and Utilization Review to arrange appropriate level of services according to patient's needs based on patient preference and payer coverage in collaboration with the physician and health care team 3. Address psychosocial, clinical, and financial barriers to discharge as identified in assessment in conjunction with the patient/family and health care team 4. Consult appropriate ancillary services (i.e.. PT/OT/ST, etc) as needed 5. Communicate with and update the patient/family, physician, and health care team regarding progress on the discharge plan 6. Identify discharge learning needs (meds, wound care, etc). 7. Arrange for needed discharge transportation as appropriate Outcome: Not Progressing Note: Evaluation of progress towards goal: pt will understand and verbalize any barriers to discharge. Pt will also communicate with team and family members any discharge needs such as transportation and medication needs. Pt will discuss any questions or concerns with care team. Problem: Neurosensory - Adult Goal: Achieves stable or improved neurological status Description: Patient's goal is: INTERVENTIONS 1. Assess for and report changes in neurological status 2. Initiate measures to prevent increased intracranial pressure 3. Maintain blood pressure and fluid volume within ordered parameters to optimize cerebral perfusion and minimize risk of hemorrhage 4. Monitor temperature, glucose, and sodium. Initiate appropriate interventions as ordered Outcome: Not Progressing Note: Evaluation of progress towards goal: Pt has had no acute neurological changes since admission, neuro status remains the same. MRI to be completed as well as plan for surgery with neurosurgery. Problem: Safety - Medical Restraint Goal: Remains free of injury from restraints (Restraint for Interference with Policy Services Representative) Description: INTERVENTIONS: 1. Determine that other, less restrictive measures have been tried or would not be effective before applying the restraint 2. Evaluate the patient's condition at the time of restraint application 3. Inform patient/family regarding the reason for restraint 4. Q2H: Monitor safety, Vital signs, psychosocial status, signs of injury, skin integrity, circulation, neurovascular status in affected extremities, respiratory status, comfort, nutrition and hydration, hygiene, ROM, elimination needs 5. Doctor will be notified of restraint 6. RN properly applies restraints per physician order Outcome: Not Progressing Note: Evaluation of progress towards goal: Pt shows no signs of injury from non-violent mitt restraint Goal: Free from restraint(s) (Restraint for Interference with Policy Services Representative) Description: INTERVENTIONS: 1. ONCE/SHIFT or MINIMUM Q12H: Assess and document the continuing need for restraints 2. Order is valid for the duration of the episode of care 3. Discontinue at the earliest possible time once the reason for restraints no longer exists 4. Identify and implement measures to help patient regain control 5. Food, fluids, and toilet offered at a minimum of every 2 hours 6. RN modifies the patient's plan of care by entering a problem statement related to safety; individualizes the safety outcome Outcome: Not Progressing Note: Evaluation of progress towards goal: Pt requires use of mitt restraint for safety. Pt pulls at lines/tubes including oxygen. Reorientation and redirection in place. Pt remains confused. Problem: Pain Goal: Patient goal is pain score less than 4, able to rest, and participant in treatment plan as appropriate Description: INTERVENTIONS: 1. Encourage patient or legal passenger relations representative to report early pain and ask for pain medicine when needed 2. Assess pain using appropriate pain scale and include the scale used when documenting 3. Administer analgesics based on type and severity of pain and evaluate response within appropriate time frame 4. Implement non-pharmacological measures as appropriate and evaluate response 5. Consider cultural and social influences on pain and pain management 6. Notify LIP if interventions ineffective or patient reports new pain 7. Monitor vital signs including pulse ox, end-tidal CO2 based on pain intervention 8. Reassess pain per policy 9. Teach patient or legal passenger relations representative interventions for comforting Outcome: Progressing Note: Evaluation of progress towards goal: patient will verbalize acceptable pain score and alert care team of any pain concerns. Problem: Safety Goal: Patient will be injury free during hospitalization Description: INTERVENTIONS: 1. Assess patient's risk for falls and implement fall prevention plan of care per policy 2. Provide and maintain a safe environment 3. Proper use of double Identifiers 4. Medication administration using the 5 rights 5. Hand hygiene 6. Specimens are labeled at the bedside 7. Instruct patient/ patient passenger relations representative about use of safety devices 8. Include patient/ patient passenger relations representative in decisions related to safety Outcome: Progressing Note: Evaluation of progress towards goal: .pt will remain free from falls throughout hospital stay. Double identifiers used for proper pt identification to prevent safety risks. Problem: Infection Goal: Absence of infection during hospitalization Description: INTERVENTIONS 1. Assess and monitor for signs and symptoms of infection. 2. Monitor lab/diagnostic results. 3. Monitor all insertion sites i.e., indwelling lines, tubes and drains. 4. Monitor endotracheal (as able) and nasal secretions for changes in amount and color. 5. Administer medications as ordered. 6. Instruct and encourage patient and family to use good hand hygiene technique. 7. Identify and instruct patient/patient passenger relations representative in use of appropriate isolation precautions for identified infection/symptoms. 8. Provide and discuss with patient/patient passenger relations representative on educational MDRO sheet. 9. Encourage and monitor nutritional status daily and consult digital analytics manager if indicated. 10. Implement neutropenic guidelines as needed. Outcome: Progressing Note: Evaluation of progress towards goal: pt will show no signs or symptoms of infection prior to discharge. Any unneccessary invasive lines and tubes will be removed if not medically necessary to decrease infection risk. Went to see patient a little bit after midnight, and she was down in MRI. I will try again later. Enid Eaton Jr., M.D. [facility] [phone] Problem: Pain Goal: Patient goal is pain score less than 4, able to rest, and participant in treatment plan as appropriate Description: INTERVENTIONS: 1. Encourage patient or legal passenger relations representative to report early pain and ask for pain medicine when needed 2. Assess pain using appropriate pain scale and include the scale used when documenting 3. Administer analgesics based on type and severity of pain and evaluate response within appropriate time frame 4. Implement non-pharmacological measures as appropriate and evaluate response 5. Consider cultural and social influences on pain and pain management 6. Notify LIP if interventions ineffective or patient reports new pain 7. Monitor vital signs including pulse ox, end-tidal CO2 based on pain intervention 8. Reassess pain per policy 9. Teach patient or legal passenger relations representative interventions for comforting 09/19/2024 0741 by MOE Dailey Outcome: Progressing Note: Evaluation of progress towards goal: Patient denies pain at this time; repositioned for comfort; PRN pain medication if needed. 09/19/2024738 by MOE Dailey Outcome: Progressing Note: Evaluation of progress towards goal: Patient denies pain at this time; repositioned for comfort; PRN pain medication if needed. Problem: Safety Goal: Patient will be injury free during hospitalization Description: INTERVENTIONS: 1. Assess patient's risk for falls and implement fall prevention plan of care per policy 2. Provide and maintain a safe environment 3. Proper use of double Identifiers 4. Medication administration using the 5 rights 5. Hand hygiene 6. Specimens are labeled at the bedside 7. Instruct patient/ patient passenger relations representative about use of safety devices 8. Include patient/ patient passenger relations representative in decisions related to safety 09/19/2024740 by MOE Dailey Outcome: Progressing Note: Evaluation of progress towards goal: Patient safety maintained; remains free from injury 09/19/2024738 by MOE Dailey Outcome: Progressing Note: Evaluation of progress towards goal: Patient safety maintained; remains free from injury Problem: Infection Goal: Absence of infection during hospitalization Description: INTERVENTIONS 1. Assess and monitor for signs and symptoms of infection. 2. Monitor lab/diagnostic results. 3. Monitor all insertion sites i.e., indwelling lines, tubes and drains. 4. Monitor endotracheal (as able) and nasal secretions for changes in amount and color. 5. Administer medications as ordered. 6. Instruct and encourage patient and family to use good hand hygiene technique. 7. Identify and instruct patient/patient passenger relations representative in use of appropriate isolation precautions for identified infection/symptoms. 8. Provide and discuss with patient/patient passenger relations representative on educational MDRO sheet. 9. Encourage and monitor nutritional status daily and consult digital analytics manager if indicated. 10. Implement neutropenic guidelines as needed. 09/19/2024740 by MOE Dailey Outcome: Progressing Note: Evaluation of progress towards goal: No active infections 09/19/2024738 by MOE Dailey Outcome: Progressing Note: Evaluation of progress towards goal: No active infections Problem: Knowledge Deficit Goal: Patient/patient passenger relations representative demonstrates understanding of disease process, treatment plan, medications, and discharge instructions Description: INTERVENTIONS 1. Complete learning assessment and assess knowledge base 2. Provide teaching at level of understanding 3. Provide teaching via preferred learning method(s) 09/19/2024740 by MOE Dailey Outcome: Progressing Note: Evaluation of progress towards goal: pt updated on POC 09/19/2024738 by MOE Dailey Outcome: Progressing Note: Evaluation of progress towards goal: pt updated on POC, no evidence of learning Problem: Discharge Planning Goal: Discharge to post-acute care, other facility, or home with appropriate resources Description: Patient's goal is: INTERVENTIONS 1. Conduct assessment to determine patient/family and health care team treatment goals, and need for post-acute services based on payer coverage, community resources, and patient preferences, and barriers to discharge 2. Coordinate with Social work, Care Navigation, and Utilization Review to arrange appropriate level of services according to patient's needs based on patient preference and payer coverage in collaboration with the physician and health care team 3. Address psychosocial, clinical, and financial barriers to discharge as identified in assessment in conjunction with the patient/family and health care team 4. Consult appropriate ancillary services (i.e.. PT/OT/ST, etc) as needed 5. Communicate with and update the patient/family, physician, and health care team regarding progress on the discharge plan 6. Identify discharge learning needs (meds, wound care, etc). 7. Arrange for needed discharge transportation as appropriate 09/19/2024740 by MOE Dailey Outcome: Progressing Note: Evaluation of progress towards goal: pt has d/c planning 09/19/2024738 by MOE Dailey Outcome: Progressing Note: Evaluation of progress towards goal: pt has d/c planning Problem: Potential for Compromised Skin Integrity Goal: Skin integrity is maintained or improved Description: Patient's goal is: INTERVENTIONS 1. Perform initial skin assessment on admission and as needed 2. Turn patient every 2 hours and PRN 3. Relieve pressure to bony prominences 4. Avoid shearing 5. Keep skin clean and dry 6. Alternate a full bath with partial baths for elderly 7. Apply lotion/moisturizer on skin 8. Monitor patient's hygiene practices 9. Float heels 10. Collaborate with interdisciplinary team and initiate plans and interventions as needed 09/19/2024740 by MOE Dailey Outcome: Progressing Note: Evaluation of progress towards goal: No new skin breakdown noted; turning patient every 2 hours per protocol 09/19/2024738 by MOE Dailey Outcome: Progressing Note: Evaluation of progress towards goal: No new skin breakdown noted; turning patient every 2 hours per protocol Goal: Patient's nutritional intake is adequate Description: Patient's goal is: INTERVENTIONS 1. Assess and monitor food intake and supplements, patient food preferences, nausea, vomiting, labs, oral cavity (gums, teeth, tongue, mucosa), proper denture fit, and cultural beliefs 2. Monitor for signs of hypoglycemia and hyperglycemia 3. Collaborate with interdisciplinary team and initiate plan and interventions as ordered 4. Monitor patient's weight 5. Assist patient with meals/food selection 6. Assist patient with eating 7. Allow adequate time for meals 8. Provide pleasant environment during mealtime 9. Increase social contact during mealtimes 10. Plan activities to conserve energy 11. Encourage/perform oral hygiene as appropriate 12. Encourage patient to take dietary supplement as ordered 13. Collaborate with clinical digital analytics manager 14. Include patient/ patient's passenger relations representative in decisions related to nutrition 09/19/2024740 by MOE Dailey Outcome: Progressing Note: Evaluation of progress towards goal: pt NPO 09/19/2024738 by MOE Dailey Outcome: Progressing Note: Evaluation of progress towards goal: pt NPO Problem: Urinary Incontinence Goal: Perineal skin integrity is maintained or improved Description: INTERVENTIONS 1. Assess genitourinary system, perineal skin, labs (urinalysis), and history of incontinence to include past management, aggravating, and alleviating factors 2. Keep skin clean and dry 3. Apply skin protectant 4. Develop skin care regimen 5. Provide privacy when changing patients incontinence device to maintain their dignity 6. Consider placing an indwelling catheter 7. Collaborate with interdisciplinary team and initiate plans and interventions as needed 09/19/2024740 by MOE Dailey Outcome: Progressing Note: Evaluation of progress towards goal: No new skin breakdown noted; turning patient every 2 hours per protocol 09/19/2024738 by MOE Dailey Outcome: Progressing Note: Evaluation of progress towards goal: No new skin breakdown noted; turning patient every 2 hours per protocol Problem: Moderate - High Risk Fall Score Description: García Fall Score of =/> 25 or indicated by [facility] Assessment Goal: Patient should be free from fall Description: Interventions: 1. [place] to environment 2. Hourly rounds addressing the 4 P's (Pain, Positioning, Possessions, Potty) 3. Clear area of hazards (spills, clutter, electrical cords, unnecessary equipment) 4. Place equipment (bed & TV controls, call light, phone, urinal) within reach 5. Encourage patient to wear glasses and hearing aides as appropriate 6. Maintain bed in lowest position 7. Lock wheels on bed/wheelchair 8. Provide adequate lighting, including night light 9. Assess need for additional bedding, food/fluids, pain med's prior to sleep/routinely 10. Provide gripper slippers or personal non-skid footwear 11. Teach patient and patient passenger relations representative to maintain environment for safety and engage in all aspects of fall prevention program 12. Remind patient to call for help before getting out of bed 13. Initiate bed/chair/exit alarms supportive devices as appropriate, (chair wedge, no-skid floor mat, raised edge mattress, hip protectors) 14. Locate patient bed assignment for optimal visualization 15. Evaluate and identify Safe Patient Handling Equipment needs 16. Provide supervision when out of bed or chair 17. Utilize gait belt as needed to assist with ambulation 18. Place adaptive equipment (cane, walker) within reach 19. Request patient passenger relations representative bring adaptive equipment/mobility aids from home or obtain and provide as needed 20. Consult pharmacy regarding effects of med's affecting mobility, cognition, and alternatives 21. Obtain physician order for PT if risk factors associated with mobility are present 22. Obtain physician order for OT as appropriate 23. Utilize diversional activities 24. Educate patient and patient passenger relations representative how to maintain a safe environment during visitation times (notify nurse prior to leaving bedside) 25. Consider appropriateness of medical or non-medical billing coordinator 26. Set up voiding schedule as appropriate (every 2 hours) 09/19/2024740 by MOE Dailey Outcome: Progressing Note: Evaluation of progress towards goal: Patient safety maintained; remains free from injury 09/19/2024 0739 by MOE Dailey Outcome: Progressing Note: Evaluation of progress towards goal: Patient safety maintained; remains free from injury Problem: Neurosensory - Adult Goal: Achieves stable or improved neurological status Description: Patient's goal is: INTERVENTIONS 1. Assess for and report changes in neurological status 2. Initiate measures to prevent increased intracranial pressure 3. Maintain blood pressure and fluid volume within ordered parameters to optimize cerebral perfusion and minimize risk of hemorrhage 4. Monitor temperature, glucose, and sodium. Initiate appropriate interventions as ordered 09/19/202441 by MOE Dailey Outcome: Progressing Note: Evaluation of progress towards goal: 09/19/2024 0739 by MOE Dailey Outcome: Progressing Note: Evaluation of progress towards goal: neuro status unchanged Problem: Knowledge Deficit Goal: Patient/patient passenger relations representative demonstrates understanding of disease process, treatment plan, medications, and discharge instructions Description: INTERVENTIONS 1. Complete learning assessment and assess knowledge base 2. Provide teaching at level of understanding 3. Provide teaching via preferred learning method(s) Outcome: Not Progressing Note: Evaluation of progress towards goal: pt will verbalize understanding of care plan as well as medications and procedures necessary for care. Pt will demonstrate proper use of equipment and medications needed prior to discharge. Education will be individualized to pt needs. Problem: Discharge Planning Goal: Discharge to post-acute care, other facility, or home with appropriate resources Description: Patient's goal is: INTERVENTIONS 1. Conduct assessment to determine patient/family and health care team treatment goals, and need for post-acute services based on payer coverage, community resources, and patient preferences, and barriers to discharge 2. Coordinate with Social work, Care Navigation, and Utilization Review to arrange appropriate level of services according to patient's needs based on patient preference and payer coverage in collaboration with the physician and health care team 3. Address psychosocial, clinical, and financial barriers to discharge as identified in assessment in conjunction with the patient/family and health care team 4. Consult appropriate ancillary services (i.e.. PT/OT/ST, etc) as needed 5. Communicate with and update the patient/family, physician, and health care team regarding progress on the discharge plan 6. Identify discharge learning needs (meds, wound care, etc). 7. Arrange for needed discharge transportation as appropriate Outcome: Not Progressing Note: Evaluation of progress towards goal: pt will understand and verbalize any barriers to discharge. Pt will also communicate with team and family members any discharge needs such as transportation and medication needs. Pt will discuss any questions or concerns with care team. Problem: Neurosensory - Adult Goal: Achieves stable or improved neurological status Description: Patient's goal is: INTERVENTIONS 1. Assess for and report changes in neurological status 2. Initiate measures to prevent increased intracranial pressure 3. Maintain blood pressure and fluid volume within ordered parameters to optimize cerebral perfusion and minimize risk of hemorrhage 4. Monitor temperature, glucose, and sodium. Initiate appropriate interventions as ordered Outcome: Not Progressing Note: Evaluation of progress towards goal: Pt's neuro status being monitored frequently. Pt shows signs of deficits from brain mass. Problem: Pain Goal: Patient goal is pain score less than 4, able to rest, and participant in treatment plan as appropriate Description: INTERVENTIONS: 1. Encourage patient or legal passenger relations representative to report early pain and ask for pain medicine when needed 2. Assess pain using appropriate pain scale and include the scale used when documenting 3. Administer analgesics based on type and severity of pain and evaluate response within appropriate time frame 4. Implement non-pharmacological measures as appropriate and evaluate response 5. Consider cultural and social influences on pain and pain management 6. Notify LIP if interventions ineffective or patient reports new pain 7. Monitor vital signs including pulse ox, end-tidal CO2 based on pain intervention 8. Reassess pain per policy 9. Teach patient or legal passenger relations representative interventions for comforting Outcome: Progressing Note: Evaluation of progress towards goal: patient will verbalize acceptable pain score and alert care team of any pain concerns. Problem: Safety Goal: Patient will be injury free during hospitalization Description: INTERVENTIONS: 1. Assess patient's risk for falls and implement fall prevention plan of care per policy 2. Provide and maintain a safe environment 3. Proper use of double Identifiers 4. Medication administration using the 5 rights 5. Hand hygiene 6. Specimens are labeled at the bedside 7. Instruct patient/ patient passenger relations representative about use of safety devices 8. Include patient/ patient passenger relations representative in decisions related to safety Outcome: Progressing Note: Evaluation of progress towards goal: .pt will remain free from falls throughout hospital stay. Double identifiers used for proper pt identification to prevent safety risks. Problem: Infection Goal: Absence of infection during hospitalization Description: INTERVENTIONS 1. Assess and monitor for signs and symptoms of infection. 2. Monitor lab/diagnostic results. 3. Monitor all insertion sites i.e., indwelling lines, tubes and drains. 4. Monitor endotracheal (as able) and nasal secretions for changes in amount and color. 5. Administer medications as ordered. 6. Instruct and encourage patient and family to use good hand hygiene technique. 7. Identify and instruct patient/patient passenger relations representative in use of appropriate isolation precautions for identified infection/symptoms. 8. Provide and discuss with patient/patient passenger relations representative on educational MDRO sheet. 9. Encourage and monitor nutritional status daily and consult digital analytics manager if indicated. 10. Implement neutropenic guidelines as needed. Outcome: Progressing Note: Evaluation of progress towards goal: pt will show no signs or symptoms of infection prior to discharge. Any unneccessary invasive lines and tubes will be removed if not medically necessary to decrease infection risk. documented in this encounter [facility] 09-28-2024 Hospital course Narrative Images from the original note were not included. [facility] INTER[facility]IC[facility] - GEN 9 ACUTE [address] [facility] [id number] Hospital Medicine Discharge Summary Patient: Anupama Vasquez Date of : 1970 Room: A938/01 Encounter date: 09/28/24 Hospital Day: 11 DATE OF ADMISSION: 09/18/2024 DATE OF DISCHARGE:09/28/2024 DISCHARGE DIAGNOSES Principal Problem: Altered mental status, unspecified altered mental status type Active Problems: Generalized anxiety disorder with panic attacks Hyperlipidemia, acquired Multiple sclerosis ([facility]) LORENZO (obstructive sleep apnea) Primary hypertension Depression, unspecified Dysphagia, oropharyngeal phase [facility] Card[facility] Urology Neurosurgery Nephrology PCP: FRED 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 Recently treated for rhabdomyolysis. 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 She was transferred to [facility] under Neurosurgery to the ICU. Right temporal brain mass Metabolic encephalopathy/Altered mental status secondary to above Neurosurgery following MRI brain demonstrates right temporal mass with 14 mm midline shift and extensive surrounding vasogenic edema with mass effect compressing the right lateral ventricle and 3rd ventricle Mentation improving Decadron taper Leukocytosis likely secondary to steroid Currently on Keppra 500 mg b.i.d. for seizure prophylaxis 5 s/p craniotomy with tumor excision Acute kidney injury, suspect post renal, resolved Acute urinary retention, resolved Hypernatremia, resolved Hyperkalemia, resolved BRANDON and bilateral mild hydro ureteral nephrosis secondary to above Nephrology initially following, creatinine back at baseline, signed off Renal ultrasound with right nephrolithiasis with mild right hydronephrosis and mild left hydronephrosis Urology consulted-maintain alexis catheter for at least 1 week-void trial at that time, f/u outpatient Positive blood culture- deemed likely contaminant Positive blood cultures 1/2 positive staph epi, methicillin-resistant Was started on vancomycin; discontinued Likely contaminant, repeat [facility] NGTD Likely Dysphagia Previously on Tube feeds per [facility]GT Speech therapy and Nutrition to follow Video swallow study completed 09/24 Currently on Level 5 diet; level 2 liquids, no straws Repeat VSS, regular texture diet, thin liquids Arrhythmia [facility] signed off- given preoperative clearance EKG completed Echocardiogram showing preserved LVEF with [id number] mitral stenosis Buttock wound Previously following with [facility] -f/u outpatient Discharge Day Progress Note 09/28/24 No overnight events and remains hemodynamically stable. Review of Systems Constitutional: Positive for fatigue. Negative for chills and fever. Respiratory: Negative for cough, shortness of breath and wheezing. Cardiovascular: Negative for chest pain and leg swelling. Gastrointestinal: Negative for abdominal pain, blood in stool, constipation, diarrhea, nausea and vomiting. Genitourinary: Negative for difficulty urinating. Skin: Positive for wound. Negative for rash. Neurological: Positive for weakness. Negative for dizziness and headaches. Psychiatric/Behavioral: Positive for confusion. Negative for sleep disturbance. BP 136/71 Pulse 92 Temp 36.8 C (98.2 F) (Oral) Resp 19 Ht 167.6 cm (5' 5.98 ) Wt 114.8 kg (253 lb 1.4 oz) LMP (LMP Unknown) Comment: post menopause SpO2 97% BMI 40.87 kg/m Temp: [36.7 C (98 F)-36.8 C (98.2 F)] 36.8 C (98.2 F) Pulse: [69-99] 92 Resp: [17-25] 19 BP: (111-136)/(69-92) 136/71 SpO2: [94 %-97 %] 97 % O2 Device: None (Room air) O2 Flow Rate (L/min): [0 L/min] 0 L/min Intake/Output Summary (Last 24 hours) at 09/28/2024 1725 Last data filed at 09/28/2024 1354 Gross per 24 hour Intake -- Output 2100 ml Net -2100 ml Physical Exam Constitutional: General: She is not in acute distress. Appearance: She is obese. Cardiovascular: Rate and Rhythm: Normal rate and regular rhythm. Heart sounds: Normal heart sounds. Pulmonary: Effort: Pulmonary effort is normal. Breath sounds: Decreased breath sounds present. No wheezing, rhonchi or rales. Abdominal: General: Abdomen is flat. Palpations: Abdomen is soft. Tenderness: There is no abdominal tenderness. Musculoskeletal: Right lower leg: No edema. Left lower leg: No edema. Skin: General: Skin is warm and dry. Capillary Refill: Capillary refill takes less than 2 seconds. Coloration: Skin is not pale. Findings: No rash. Neurological: General: No focal deficit present. Mental Status: She is disoriented. Motor: Weakness present. Comments: Disoriented to time, place. Able to answer most questions and follow commands Psychiatric: Behavior: Behavior is cooperative. Code Status: Full Code Labs Recent Results (from the past 48 hours) Ionized calcium Collection Time: 09/27/24 7:48 AM Result Value Ref Range IONIZED CALCIUM - ICAN 4.8 4.5 - 5.3 mg/dL Basic Metabolic Panel Collection Time: 09/27/24 7:48 AM Result Value Ref Range SODIUM 144 134 - 146 mmol/L POTASSIUM 4.6 3.5 - 5.0 mmol/L CHLORIDE 109 98 - 109 mmol/L CARBON DIOXIDE 25 22 - 32 mmol/L ANION GAP 10 5 - 15 mmol/L BLOOD UREA NITROGEN 27 (H) 5 - 23 mg/dL CREATININE 0.74 0.40 - 1.00 mg/dL GLUCOSE 101 (H) 65 - 99 mg/dL CALCIUM 9.0 8.5 - 10.5 mg/dL EGFR Non-Race Dependent >90 >=60 ml/min/1.73sq.m Magnesium Collection Time: 09/27/24 7:48 AM Result Value Ref Range MAGNESIUM 1.9 1.8 - 2.6 mg/dL Phosphorus Collection Time: 09/27/24 7:48 AM Result Value Ref Range PHOSPHORUS 2.8 2.4 - 4.9 mg/dL CBC auto differential Collection Time: 09/27/24 7:48 AM Result Value Ref Range WBC 17.1 (H) 4 - 11 x10E9/L RBC Count 4.14 3.8 - 5.2 X10E12/L Hemoglobin 11.3 (L) 11.7 - 15.5 g/dL Hematocrit 34.3 (L) 35 - 47 % MCV 83 80 - 100 fL MCH 27.3 27 - 34 pg MCHC 33.0 32 - 36 g/dL RDW 16.6 (H) 11.5 - 15 % Platelet Count 116 (L) 150 - 450 X10E9/L MPV 11.6 7 - 12 fL Myelocyte 1 % Neutrophils Relatives 82 % Lymphocytes Relative 5 % Monocytes Relative 13 % Neutrophils Absolute (M) 14.0 (H) 1.5 - 6.6 10*3/uL Lymphocytes Absolute 0.8 (L) 1.0 - 3.5 10*3/uL Monocytes Absolute 2.2 (H) 0.0 - 0.9 10*3/uL Differential Type CELLAVISION DIFFERENTIAL Ionized calcium Collection Time: 09/28/24 6:43 AM Result Value Ref Range IONIZED CALCIUM - ICAN 4.3 (L) 4.5 - 5.3 mg/dL Basic Metabolic Panel Collection Time: 09/28/24 6:43 AM Result Value Ref Range SODIUM 140 134 - 146 mmol/L POTASSIUM 4.4 3.5 - 5.0 mmol/L CHLORIDE 106 98 - 109 mmol/L CARBON DIOXIDE 23 22 - 32 mmol/L ANION GAP 11 5 - 15 mmol/L BLOOD UREA NITROGEN 26 (H) 5 - 23 mg/dL CREATININE 0.74 0.40 - 1.00 mg/dL GLUCOSE 94 65 - 99 mg/dL CALCIUM 8.8 8.5 - 10.5 mg/dL EGFR Non-Race Dependent >90 >=60 ml/min/1.73sq.m Magnesium Collection Time: 09/28/24 6:43 AM Result Value Ref Range MAGNESIUM 1.8 1.8 - 2.6 mg/dL Phosphorus Collection Time: 09/28/24 6:43 AM Result Value Ref Range PHOSPHORUS 2.6 2.4 - 4.9 mg/dL CBC auto differential Collection Time: 09/28/24 6:43 AM Result Value Ref Range WBC 15.5 (H) 4 - 11 x10E9/L RBC Count 4.27 3.8 - 5.2 X10E12/L Hemoglobin 11.5 (L) 11.7 - 15.5 g/dL Hematocrit 35.5 35 - 47 % MCV 83 80 - 100 fL MCH 27.0 27 - 34 pg MCHC 32.5 32 - 36 g/dL RDW 16.4 (H) 11.5 - 15 % Platelet Count 115 (L) 150 - 450 X10E9/L MPV 10.7 7 - 12 fL Neutrophils Relative 80.2 % Lymphocytes Relative 8.3 % Monocytes Relative 11.3 % Eosinophils Relative 0.1 % Basophils Relative 0.1 % Neutrophils Absolute (A) 12.4 (H) 1.5 - 6.6 10*3/uL Lymphocytes Absolute 1.3 1.0 - 3.5 10*3/uL Monocytes Absolute 1.8 (H) 0.0 - 0.9 10*3/uL Eosinophils Absolute 0.0 0.0 - 0.4 10*3/uL Basophils Absolute 0.0 0.0 - 0.2 10*3/uL Differential Type AUTOMATED DIFFERENTIAL Radiology Fluoroscopy swallow motility function Result Date: 09/28/2024 Narrative: FL SWALLOW MOTILITY FUNCTION HISTORY: Oropharyngeal dysphagia COMPARISON: Fluoroscopy swallow study 09/24/2024 TECHNIQUE: Video fluoroscopic swallow study was performed in conjunction with speech pathologist. Barium contrast materials of varying consistencies administered. FINDINGS: Fluoroscopy time: 2.0 Reference air kerma: 4.1 mGy Runs: 12 Thin: Penetration with cup and straw. No aspiration. Mildly thick: Not tested Moderately thick: Not tested Applesauce: No penetration or aspiration. Fruit: No penetration or aspiration. Cracker: No penetration or aspiration. IMPRESSION: 1. Abnormal swallow study as detailed above 2. Please correlate with dedicated speech pathology report for additional details and recommendations. Approved by Andrey Shannon MD on 09/28/2024 3:00 PM IJayla MD have personally reviewed the image(s) and agree with and/or edited the report Finalized by Jayla Arroyo MD on 09/28/2024 3:08 PM X-ray chest 1 view Result Date: 09/27/2024 Narrative: Single view chest History:evaluate for PNA Difficulty breathing, shortness of breath Comparison: 09/23/2024 Findings: Single portable view of the chest. Stable cardiomediastinal silhouette. No focal opacity, effusion or pneumothorax. Impression: No significant interval change or definitive acute process. Finalized by Eliazar Sterling MD on 09/27/2024 6:34 AM Fluoroscopy swallow motility function Result Date: 09/24/2024 Narrative: FL SWALLOW MOTILITY FUNCTION HISTORY: Oropharyngeal dysphagia COMPARISON: None TECHNIQUE: Video fluoroscopic swallow study was performed in conjunction with speech pathologist. Barium contrast materials of varying consistencies administered. FINDINGS: Fluoroscopy time: 2.9 minutes Reference air kerma: 7.3 mGy Runs: 16 Thin: Penetration. Mildly thick: Penetration with use of straw. No penetration or aspiration with use of cup. Applesauce: No penetration or aspiration. Fruit: No penetration or aspiration. IMPRESSION: 1. Abnormal swallow study as detailed. 2. Please correlate with dedicated speech pathology report for additional details and recommendations. Approved by Andrey Hernández MD on 09/24/2024 1:31 PM I, Remy Christian MD have personally reviewed the image(s) and agree with and/or edited the report Finalized by Remy Christian MD on 09/24/2024 1:[address] brain without contrast Result Date: 09/23/2024 Narrative: STUDY: CT BRAIN WO CONT INDICATION: s/p crani for tumor removal. TECHNIQUE: * CT head was performed without intravenous contrast using the standard protocol. Automated exposure control was utilized. * All CT scans at this facility use dose modulation, iterative reconstruction, and/or weight based dosing when appropriate to reduce radiation dose to as low as reasonably achievable. FINDINGS: Limited exam due to postoperative and axial only imaging. Postoperative changes of right pterional craniotomy. Tumor debulking is noted. The underlying mass itself is difficult to characterize on this noncontrast CT. Mild to moderate volume of intracranial pneumocephalus. Slight interval decrease in leftward midline shift at the level of the abdomen was, now measuring 1.2 cm, previously measuring 1.5 cm. There is extensive vasogenic edema throughout the right hemisphere which is again noted. Bilateral globes, orbits appear unremarkable. Postoperative changes in the superficial tissues along the right temporal tissues. Mild mucosal thickening in the posterior ethmoid air cells. Mastoid air cells, middle ear cavities appear clear. Atherosclerosis of the carotid siphons. IMPRESSION: * Extensive postoperative changes of right pterional craniotomy and underlying mass resection. Residual tumor is difficult to assess on this noncontrast, portable imaging only technique. * Slight interval decrease in leftward midline shift. * Intracranial pneumocephalus, likely within expected limits for recent surgery. Finalized by Hebert Farrar on 09/23/2024 7:38 PM X-ray abdomen NG Tube placement 1 view Result Date: 09/23/2024 Narrative: EXAM: XR ABD NG TUBE PLACEMENT 1 VIEW CLINICAL INFORMATION: new NG placed. COMPARISON: 09/20/2024 FINDINGS: The gastric tube tip is in the stomach. IMPRESSION: Gastric tube tip in stomach. Finalized by Sebastian Grayson MD on 09/23/2024 5:22 PM X-ray chest 1 view Result Date: 09/23/2024 Narrative: History: Preoperative exam. History of asthma. Procedure: Chest AP portable upright Comparison: 10/06/2024 Findings: The heart and lungs show no acute findings, and the mediastinum and gema are grossly negative . No pneumothorax. Impression: No acute pulmonary process. Finalized by Shen Farooq MD on 09/23/2024 12:23 PM Echo complete W/ contrast Result Date: 09/22/2024 Narrative: Left Ventricle: Left ventricle appears normal in size. There is mild increased wall thickness/hypertrophy. Systolic function is normal with an ejection fraction of 55-60%. Right Ventricle: Systolic function is normal. Normal tricuspid annular plane systolic excursion. Mitral Valve: There is trace regurgitation. There is moderate stenosis. The mean gradient is 10.00 mmHg. The peak gradient is 20.07 mmHg. Pericardium: There is a trivial pericardial effusion. Aorta: The aortic root is normal in size. X-ray abdomen NG Tube placement 1 view Result Date: 09/20/2024 Narrative: Supine abdominal radiograph HISTORY: NG placement COMPARISON: None IMPRESSION: NG tube extends below the diaphragm into the stomach with tip in the distal gastric body. Finalized by Thad Aguero MD on 09/20/2024 8:[address] abdomen and pelvis without contrast Result Date: 09/20/2024 Narrative: CT ABDOMEN AND PELVIS WITHOUT IV CONTRAST HISTORY: Renal stones, obstruction COMPARISON STUDY: Ultrasound 09/19/2024. TECHNIQUE: CT scan of the abdomen and pelvis performed without IV or PO contrast. Coronal and sagittal reformats generated and reviewed. FINDINGS: Solid visceral organs limited in evaluation secondary to lack of IV contrast. LOWER THORAX: Lower lung atelectasis. HEPATOBILIARY: Scattered hepatic calcifications, no suspicious hepatic mass. No biliary ductal dilatation. Gallbladder is normal. SPLEEN: Unremarkable. PANCREAS: Mild splenomegaly 15 cm craniocaudal dimension ADRENALS: No adrenal nodules. KIDNEYS/URETERS: No urinary tract calculi. There is mild pelvocaliectasis both kidneys, no significant dilatation of either ureter. No visible distal obstructing process. No suspicious renal mass. GI TRACT: No bowel obstruction. Appendix is normal. Colonic diverticulosis without inflammatory change. PELVIC ORGANS/BLADDER: Containing Alexis catheter, bladder wall thickening may be present. No bladder stone. PERITONEUM/RETROPERITONEUM: No free air or fluid. LYMPH NODES: No enlarged lymph nodes. VESSELS: Atherosclerotic calcifications without abdominal aortic aneurysm. BONES AND SOFT TISSUES: No suspicious osseous lesion. IMPRESSION: 1. No urinary tract calculi. There is mild pelvocaliectasis both kidneys, no significant dilatation of either ureter. No visible distal obstructing process. 2. Splenomegaly. 3. Bladder wall thickening, please correlate with urinalysis. All CT scans at this facility use dose modulation, iterative reconstruction, and/or weight based dosing when appropriate to reduce radiation dose to as low as reasonably achievable. Finalized by Bipin Mejia MD on 09/20/2024 3:53 PM MR brain synaptive protocol Result Date: 09/20/2024 Narrative: History: Right temporal lobe mass shown on brain CT COMPARISON: Brain CT from September 18 outside facility [facility] PROCEDURE: Multiplanar multisequence images performed through the brain without contrast utilizing synaptive protocol for surgical planning. FINDINGS: Right temporal mass midline shift to the opposite side measuring 14 mm. Extensive surrounding vasogenic edema and mass effect partially compressing the right lateral ventricle and completely compressing the third ventricle with dilatation of the left lateral ventricle. The lesion shows heterogeneous intense enhancement and measures 44.4 mm superior to inferior by 46.4 mm anterior to posterior and 38.7 mm medial to lateral Extensive susceptibility artifacts within the process suggesting some calcification or hemorrhage No extra-axial fluid collections. No MR evidence for an infarct. Diffusion tensor imaging utilized for delineating the associated white matter tracts. IMPRESSION: Right temporal lobe lesion detailed above for surgical planning. 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 Metastasis can also present in this fashion. Finalized by Juan Antonio Lindquist MD on 09/20/2024 7:17 AM Ultrasound retroperitoneal complete Result Date: 09/19/2024 Narrative: US RETROPERITONEAL COMPLETE HISTORY: Acute renal failure, renal size evaluation, rule out hydronephrosis. COMPARISON: None. TECHNIQUE: Grayscale and color Doppler sonographic images of the urinary bladder and both kidneys. FINDINGS: Right kidney: * 10.6 x 5.3 x 6.1 cm. Cortex: 0.7 cm. Normal echogenicity. * There is a 0.4 cm echogenic focus within the right renal pelvis/proximal right ureter which demonstrates twinkle artifact, compatible with renal calculus. There is mild prominence of the right renal pelvis which measures 1.2 cm and proximal ureter which measures 0.9 cm. Left kidney: * 14.0 x 4.6 x 5.6 cm. Cortex: 0.7 cm. Normal echogenicity. * Mild prominence of the left renal pelvis which measures up to 2.1 cm. No evidence of contour deforming mass or calculi. Alexis catheter noted within the decompressed bladder. IMPRESSION: * Right nephrolithiasis measuring 0.4 cm with mild right hydronephrosis. * Mild left hydronephrosis without visualized calculus. Approved by Resident Tk Najera MD on 09/19/2024 6:30 AM I, Mao Varner MD have personally reviewed the image(s) and agree with and/or edited the report Finalized by Mao Varner MD on 09/19/2024 6:46 AM DISCHARGE INSTRUCTION Disposition: correction facility Condition: Stable Activity: activity as tolerated Diet: Adult diet Level 5 Minced and Moist diet; Level 2 Mildly Thick; No straws Adult nutrition supplements Follow up: FRED GRACIA APRN-RUBINA within 7-14 days. Neurosurgery, Urology Labs/Imaging/Pathology: Discharge Medications: Medication List START taking these medications Instructions Last Dose Given Next Dose Due dexAMETHasone 2 mg tablet Commonly known as: DECADRON Start taking on: September 28, 2024 Take 2 tablets (4 mg total) by mouth 3 (three) times a day for 1 day, THEN 1.5 tablets (3 mg total) 3 (three) times a day for 3 days, THEN 1.5 tablets (3 mg total) 2 (two) times a day for 3 days, THEN 1 tablet (2 mg total) 2 (two) times a day for 3 days. levETIRAcetam 500 mg tablet Commonly known as: KEPPRA Take 1 tablet (500 mg total) by mouth in the morning and 1 tablet (500 mg total) before bedtime. mirtazapine 15 mg disintegrating tablet Commonly known as: REMERON CANDI-TAB Dissolve 1 tablet (15 mg total) on tongue nightly. sennosides-docusate sodium 8.6-50 mg Commonly known as: SENOKOT-S Take 2 tablets by mouth nightly. CHANGE how you take these medications Instructions Last Dose Given Next Dose Due metoprolol tartrate 25 mg tablet Commonly known as: LOPRESSOR What changed: how much to take Take 1 tablet (25 mg total) by mouth in the morning and 1 tablet (25 mg total) before bedtime. STOP taking these medications busPIRone 7.5 mg tablet Commonly known as: BUSPAR ASK your doctor about these medications Instructions Last Dose Given Next Dose Due acetaminophen 325 mg tablet Commonly known as: TYLENOL Take 2 tablets (650 mg total) by mouth every 6 (six) hours as needed for pain. Where to Get Your Medications Information about where to get these medications is not yet available Ask your nurse or doctor about these medications dexAMETHasone 2 mg tablet levETIRAcetam 500 mg tablet metoprolol tartrate 25 mg tablet sennosides-docusate sodium 8.6-50 mg >30 minutes were spent on discharging this patient. JACQUELINE AYALA 09/28/2024 5:25 PM [facility] 7AM-7PM & 7PM-7AM: EpicChat or page through [employer]. JACQUELINE Ayala 09/28/24 [id number] Attending Addendum: I Dr Julio Fernandez, personally performed a face to face diagnostic evaluation on this patient. I have reviewed the note authored by the advance practice provider including history, review of systems, physical examination, medical decision making and agree with the assessment and plan as written. I have seen and evaluated the patient,I have repeated the more portions of the physical exam and concur with the DIANE findings.I have reviewed all laboratory findings and imaging reprts/films.I agree with the plan as noted. documented in this encounter [facility] 09-27-2024 History of Present illness Narrative Images from the original note were not included. [facility] GEN 9 ACUTE [address] [facility] [id number] Hospital Medicine Progress Note Patient: Anupama Vasquez Date of : 1970 Room: [place] [address] PCP: JACQUELINE LUNA Admission date: 09/18/2024 11:59 PM Encounter date: 09/27/24 Hospital Day: 10 SUBJECTIVE Chief complaints: Chief Complaint Patient presents with Altered Mental Status Evaluation of Abnormal Diagnostic Test Interval History: Status: stable. No overnight events per bedside RN. Patient is resting in bed in no acute distress. More awake and interactive today. Remains confused. Review of Systems Unable to perform ROS: Mental status change OBJECTIVE BP 118/77 Pulse 97 Temp 36.8 C (98.2 F) (Oral) Resp 24 Ht 167.6 cm (5' 5.98 ) Wt 115.4 kg (254 lb 6.6 oz) LMP (LMP Unknown) Comment: post menopause SpO2 99% BMI 41.08 kg/m Temp: [36.2 C (97.1 F)-36.8 C (98.2 F)] 36.8 C (98.2 F) Pulse: [75-109] 97 Resp: [16-26] 24 BP: (118-142)/(69-95) 118/77 FiO2 (%): [21 %] 21 % SpO2: [90 %-99 %] 99 % O2 Device: None (Room air) O2 Flow Rate (L/min): [0 L/min] 0 L/min Intake/Output Summary (Last 24 hours) at 09/27/2024 1631 Last data filed at 09/27/2024 1509 Gross per 24 hour Intake -- Output 875 ml Net -875 ml Physical Exam Constitutional: General: She is awake. She is not in acute distress. Appearance: She is well-developed. She is obese. Interventions: She is restrained. HENT: Head: Normocephalic and atraumatic. Nose: Nose normal. Cardiovascular: Rate and Rhythm: Normal rate and regular rhythm. Heart sounds: Normal heart sounds. No murmur heard. Pulmonary: Effort: Pulmonary effort is normal. No respiratory distress. Breath sounds: Decreased air movement present. Decreased breath sounds present. No wheezing. Abdominal: General: Bowel sounds are normal. Palpations: Abdomen is soft. Tenderness: There is no abdominal tenderness. Genitourinary: Comments: Alexis catheter in place Musculoskeletal: General: Normal range of motion. Cervical back: Neck supple. Lymphadenopathy: Cervical: No cervical adenopathy. Skin: General: Skin is warm and dry. Findings: Wound (Buttocks, various skin tears) present. No rash. Neurological: Mental Status: She is alert. She is disoriented. Cranial Nerves: No facial asymmetry. Motor: Weakness (Left> right) present. Comments: More awake today Oriented to self and place; Disoriented to year, month, and situation Follows commands x4; generally weak BLE>BUE Psychiatric: Attention and Perception: She is inattentive. Mood and Affect: Affect is flat. Behavior: Behavior is slowed. Behavior is cooperative. Medications Scheduled: dexAMETHasone, 4 mg, oral, TID FOLLOWED BY [START ON 09/29/2024] dexAMETHasone, 3 mg, oral, TID FOLLOWED BY [START ON 10/02/2024] dexAMETHasone, 3 mg, oral, BID FOLLOWED BY [START ON 10/05/2024] dexAMETHasone, 2 mg, oral, BID enoxaparin (LOVENOX) injection, 40 mg, subcutaneous, BID levETIRAcetam, 500 mg, oral, BID metoprolol tartrate, 25 mg, oral, BID mirtazapine, 15 mg, oral, Nightly sennosides-docusate sodium, 2 tablet, oral, Nightly Infusions: dextrose 2.5 % in water, 1,000 mL infusion, 50-150 mL/hr, Last Rate: Stopped (09/22/24 0745) niCARdipine, 5-15 mg/hr As Needed: acetaminophen OR acetaminophen bisacodyL calcium gluconate calcium gluconate calcium gluconate dextrose dextrose 50 % in water (D50W) glucagon (human recombinant) hydrALAZINE ipratropium-albuteroL labetalol magnesium sulfate magnesium sulfate niCARdipine polyethylene glycol potassium chloride OR potassium chloride OR potassium chloride IV (Adult) sodium phosphate IV OR sodium phosphate IV - central line OR sod phos di, mono-K phos mono Allergies: Patient has no known allergies. Code Status: Full Code Labs Recent Results (from the past 24 hours) Ionized calcium Collection Time: 09/27/24 7:48 AM Result Value Ref Range IONIZED CALCIUM - ICAN 4.8 4.5 - 5.3 mg/dL Basic Metabolic Panel Collection Time: 09/27/24 7:48 AM Result Value Ref Range SODIUM 144 134 - 146 mmol/L POTASSIUM 4.6 3.5 - 5.0 mmol/L CHLORIDE 109 98 - 109 mmol/L CARBON DIOXIDE 25 22 - 32 mmol/L ANION GAP 10 5 - 15 mmol/L BLOOD UREA NITROGEN 27 (H) 5 - 23 mg/dL CREATININE 0.74 0.40 - 1.00 mg/dL GLUCOSE 101 (H) 65 - 99 mg/dL CALCIUM 9.0 8.5 - 10.5 mg/dL EGFR Non-Race Dependent >90 >=60 ml/min/1.73sq.m Magnesium Collection Time: 09/27/24 7:48 AM Result Value Ref Range MAGNESIUM 1.9 1.8 - 2.6 mg/dL Phosphorus Collection Time: 09/27/24 7:48 AM Result Value Ref Range PHOSPHORUS 2.8 2.4 - 4.9 mg/dL CBC auto differential Collection Time: 09/27/24 7:48 AM Result Value Ref Range WBC 17.1 (H) 4 - 11 x10E9/L RBC Count 4.14 3.8 - 5.2 X10E12/L Hemoglobin 11.3 (L) 11.7 - 15.5 g/dL Hematocrit 34.3 (L) 35 - 47 % MCV 83 80 - 100 fL MCH 27.3 27 - 34 pg MCHC 33.0 32 - 36 g/dL RDW 16.6 (H) 11.5 - 15 % Platelet Count 116 (L) 150 - 450 X10E9/L MPV 11.6 7 - 12 fL Myelocyte 1 % Neutrophils Relatives 82 % Lymphocytes Relative 5 % Monocytes Relative 13 % Neutrophils Absolute (M) 14.0 (H) 1.5 - 6.6 10*3/uL Lymphocytes Absolute 0.8 (L) 1.0 - 3.5 10*3/uL Monocytes Absolute 2.2 (H) 0.0 - 0.9 10*3/uL Differential Type CELLAVISION DIFFERENTIAL Radiology X-ray chest 1 view Result Date: 09/27/2024 Single view chest History:evaluate for PNA Difficulty breathing, shortness of breath Comparison: 09/23/2024 Findings: Single portable view of the chest. Stable cardiomediastinal silhouette. No focal opacity, effusion or pneumothorax. Impression: No significant interval change or definitive acute process. Finalized by Eliazar Sterling MD on 09/27/2024 6:34 AM HOSPITAL PROBLEM LIST Principal Problem: Altered mental status, unspecified altered mental status type Active Problems: Generalized anxiety disorder with panic attacks Hyperlipidemia, acquired Multiple sclerosis (CMS-HCC) LORENZO (obstructive sleep apnea) Primary hypertension Depression, unspecified Dysphagia, oropharyngeal phase ASSESSMENT & PLAN Right temporal brain mass Metabolic encephalopathy/Altered mental status secondary to above Neurosurgery following MRI brain demonstrates right temporal mass with 14 mm midline shift and extensive surrounding vasogenic edema with mass effect compressing the right lateral ventricle and 3rd ventricle Altered mental status likely secondary to metabolic encephalopathy from above Currently on Decadron 4 mg q.6 hours for cerebral edema Leukocytosis likely secondary to steroid Currently on Keppra 500 mg b.i.d. for seizure prophylaxis 09/23 s/p craniotomy with tumor excision Acute kidney injury, suspect post renal, resolved Acute urinary retention, resolved Hypernatremia, resolved Hyperkalemia, resolved BRANDON and bilateral mild hydro ureteral nephrosis secondary to above Renal ultrasound with right nephrolithiasis with mild right hydronephrosis and mild left hydronephrosis Positive blood culture- deemed likely contaminant Positive blood cultures 1/2 positive staph epi, methicillin-resistant Was started on vancomycin; discontinued today and monitor off antibiotics Repeat blood cultures x2 are NGTD Likely contaminant but will continue to monitor cultures for growth Continue to follow serial temperatures and monitor for signs/symptoms of infection while off antibiotic therapy Likely Dysphagia Previously on Tube feeds per NGT Speech therapy and Nutrition to follow Video swallow study completed 09/24 Currently on Level 5 diet; level 2 liquids, no straws Arrhythmia Bigeminy Cardiology signed off- given preoperative clearance EKG completed Echocardiogram showing preserved LVEF with odie-ra-pvurasih mitral stenosis Maintain cardiac monitoring Buttock wound Wound care following Previously following with [facility] Wound care per orders Q.2 hours turns and skin care per protocol Hypertension Hyperlipidemia Continue metoprolol down NGT Goal SBP 90-140 PRN hydralazine/labetalol IVP Depression Generalized anxiety disorder with panic attacks Continue home dose Remeron nightly down NGT Multiple sclerosis stable DVT/VTE prophylaxis: SCD and heparin SQ. GI prophylaxis: famotidine. DC planning: TBD pending clinical progress- ok to transfer out of ICU today per Neurosurgery Skye Lara MD 09/27/2024 4:31 PM [facility] Internal Medicine 7AM-7PM & 7PM-7AM: EpicChat or page through On-Call Finder. Images from the original note were not included. FOLLOW-UP: Post-Intensive Care Rounding Note Patient: Anupama Vasquez : 1970 Age: 54 y.o. Length of Stay: 8 days Admission Diagnosis: Brain mass [G93.89] BRANDON (acute kidney injury) [N17.9] Altered mental status, unspecified altered mental status type [R41.82] AMS (altered mental status) [R41.82] Arrhythmia [I49.9] Reviewing patient due to her recent transfer out from Intensive Care. Recorded vital signs are stable and the patient is not noted to be in any apparent distress. Telemetry and monitoring noted. Staff may call with any issues or concerns regarding her clinical presentation or stability. Thank you, Arabella Burt RN Rapid Response: [facility] Images from the original note were not included. Post-Intensive Care Rounding Note Patient: Anupama Vasquez : 1970 Age: 54 y.o. Length of Stay: 7 days Admission Diagnosis: Brain mass [G93.89] BRANDON (acute kidney injury) [N17.9] Altered mental status, unspecified altered mental status type [R41.82] AMS (altered mental status) [R41.82] Arrhythmia [I49.9] Rapid response rounding on patient after transfer out of ICU. No acute changes noted. Staff encouraged to call with any issues, questions or concerns that may arise regarding the patient throughout the shift. Thank you, Russel Valverde RN Rapid Response: [facility] Images from the original note were not included. [facility] - GEN 9 ACUTE [address] [facility] [id number] Hospital Medicine Progress Note Patient: Anupama Vasquez Date of : 1970 Room: [place] [address] PCP: FRED GRACIA APRN-REGENERATOR OPERATOR Admission date: 09/18/2024 11:59 PM Encounter date: 09/26/24 Hospital Day: 9 SUBJECTIVE Chief complaints: Chief Complaint Patient presents with Altered Mental Status Evaluation of Abnormal Diagnostic Test Interval History: Status: stable. No overnight events per bedside RN. Patient is resting in bed in no acute distress. More awake and interactive today. Remains confused. Review of Systems Unable to perform ROS: Mental status change OBJECTIVE BP 146/80 Pulse 93 Temp 36.8 C (98.2 F) (Oral) Resp 20 Ht 167.6 cm (5' 5.98 ) Wt 118.2 kg (260 lb 9.3 oz) Comment: bed weight LMP (LMP Unknown) Comment: post menopause SpO2 92% BMI 42.08 kg/m Temp: [36.2 C (97.2 F)-37.1 C (98.7 F)] 36.8 C (98.2 F) Pulse: [81-108] 93 Resp: [19-25] 20 BP: (128-146)/(80-112) 146/80 SpO2: [91 %-94 %] 92 % O2 Device: None (Room air) O2 Flow Rate (L/min): [0 L/min] 0 L/min Intake/Output Summary (Last 24 hours) at 09/26/2024 1701 Last data filed at 09/26/2024 1600 Gross per 24 hour Intake -- Output 2925 ml Net -2925 ml Physical Exam Constitutional: General: She is awake. She is not in acute distress. Appearance: She is well-developed. She is obese. Interventions: She is restrained. HENT: Head: Normocephalic and atraumatic. Nose: Nose normal. Cardiovascular: Rate and Rhythm: Normal rate and regular rhythm. Heart sounds: Normal heart sounds. No murmur heard. Pulmonary: Effort: Pulmonary effort is normal. No respiratory distress. Breath sounds: Decreased air movement present. Decreased breath sounds present. No wheezing. Abdominal: General: Bowel sounds are normal. Palpations: Abdomen is soft. Tenderness: There is no abdominal tenderness. Genitourinary: Comments: Alexis catheter in place Musculoskeletal: General: Normal range of motion. Cervical back: Neck supple. Lymphadenopathy: Cervical: No cervical adenopathy. Skin: General: Skin is warm and dry. Findings: Wound (Buttocks, various skin tears) present. No rash. Neurological: Mental Status: She is alert. She is disoriented. Cranial Nerves: No facial asymmetry. Motor: Weakness (Left> right) present. Comments: More awake today Oriented to self and place; Disoriented to year, month, and situation Follows commands x4; generally weak BLE>BUE Psychiatric: Attention and Perception: She is inattentive. Mood and Affect: Affect is flat. Behavior: Behavior is slowed. Behavior is cooperative. Medications Scheduled: dexAMETHasone, 4 mg, oral, TID FOLLOWED BY [START ON 09/29/2024] dexAMETHasone, 3 mg, oral, TID FOLLOWED BY [START ON 10/02/2024] dexAMETHasone, 3 mg, oral, BID FOLLOWED BY [START ON 10/05/2024] dexAMETHasone, 2 mg, oral, BID enoxaparin (LOVENOX) injection, 40 mg, subcutaneous, BID levETIRAcetam, 500 mg, intravenous, Q12H metoprolol tartrate, 25 mg, oral, BID mirtazapine, 15 mg, oral, Nightly sennosides-docusate sodium, 2 tablet, oral, Nightly Infusions: dextrose 2.5 % in water, 1,000 mL infusion, 50-150 mL/hr, Last Rate: Stopped (09/22/24 0745) niCARdipine, 5-15 mg/hr sodium chloride 0.9 %, 3 mL/hr, Last Rate: 3 mL/hr (09/25/24 07) As Needed: acetaminophen OR acetaminophen bisacodyL calcium gluconate calcium gluconate calcium gluconate dextrose dextrose 50 % in water (D50W) glucagon (human recombinant) hydrALAZINE labetalol magnesium sulfate magnesium sulfate niCARdipine polyethylene glycol potassium chloride OR potassium chloride OR potassium chloride IV (Adult) sodium phosphate IV OR sodium phosphate IV - central line OR sod phos di, mono-K phos mono Allergies: Patient has no known allergies. Code Status: Full Code Labs No results found for this or any previous visit (from the past 24 hours). Radiology No results found. HOSPITAL PROBLEM LIST Principal Problem: Altered mental status, unspecified altered mental status type Active Problems: Generalized anxiety disorder with panic attacks Hyperlipidemia, acquired Multiple sclerosis ([facility]) LORENZO (obstructive sleep apnea) Primary hypertension Depression, unspecified Dysphagia, oropharyngeal phase ASSESSMENT & PLAN Right temporal brain mass Metabolic encephalopathy/Altered mental status secondary to above Neurosurgery following MRI brain demonstrates right temporal mass with 14 mm midline shift and extensive surrounding vasogenic edema with mass effect compressing the right lateral ventricle and 3rd ventricle Altered mental status likely secondary to metabolic encephalopathy from above Currently on Decadron 4 mg q.6 hours for cerebral edema Leukocytosis likely secondary to steroid Currently on Keppra 500 mg b.i.d. for seizure prophylaxis 09/23 s/p craniotomy with tumor excision Acute kidney injury, suspect post renal, resolved Acute urinary retention, resolved Hypernatremia, resolved Hyperkalemia, resolved Nephrology signed off 09/23 Urology following peripherally Alexis catheter placed for I volume urinary retention of >1.5 L BRANDON and bilateral mild hydro ureteral nephrosis secondary to above Renal ultrasound with right nephrolithiasis with mild right hydronephrosis and mild left hydronephrosis Creatinine peaked at 9.65 on admission; previously normal in August 2024 at 0.8 Creat down to 0.08 today GFR and BUN steadily improving Alexis catheter to be maintained for at least 1 week per Urology Sodium level 141 this morning Positive blood culture- deemed likely contaminant Positive blood cultures 1/2 positive staph epi, methicillin-resistant Was started on vancomycin; discontinued today and monitor off antibiotics Repeat blood cultures x2 are NGTD Likely contaminant but will continue to monitor cultures for growth Continue to follow serial temperatures and monitor for signs/symptoms of infection while off antibiotic therapy Likely Dysphagia Previously on Tube feeds per NGT Speech therapy and Nutrition to follow Video swallow study completed 09/24 Currently on Level 5 diet; level 2 liquids, no straws Arrhythmia Bigeminy Cardiology signed off- given preoperative clearance EKG completed Echocardiogram showing preserved LVEF with fkrn-ny-grphychi mitral stenosis Maintain cardiac monitoring Buttock wound Wound care following Previously following with [facility] Wound care per orders Q.2 hours turns and skin care per protocol Hypertension Hyperlipidemia Continue metoprolol down NGT Goal SBP 90-140 PRN hydralazine/labetalol IVP Depression Generalized anxiety disorder with panic attacks Continue home dose Remeron nightly down NGT Multiple sclerosis stable DVT/VTE prophylaxis: SCD and heparin SQ. GI prophylaxis: famotidine. DC planning: TBD pending clinical progress- ok to transfer out of ICU today per Neurosurgery Skye Lara MD 09/26/2024 5:01 PM [facility] Internal Medicine 7AM-7PM & 7PM-7AM: EpicChat or page through On-Call Finder. Images from the original note were not included. 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 Patient sitting in bed eating applesauce. Denies headache. PHYSICAL EXAM Temp: [36.2 C (97.2 F)-37.1 C (98.7 F)] 36.7 C (98.1 F) Pulse: [81-108] 81 Resp: [19-25] 22 BP: (128-144)/(85-112) 128/86 Arterial Line BP: (118-143)/(56-77) 129/77 SpO2: [91 %-94 %] 94 % O2 Device: None (Room air) Incision: clean, dry and well approximated. Closed with chromic sutures. Physical Exam Alert and oriented to self year and president. Disoriented to month, place and situation PERRL Follows commands in all extremities. Weakly overcomes in LUE (baseline from previous rotator cuff surgery) Respirations even, course Abdomen soft LABORATORY DATA Results from last 7 days Lab Units 09/25/24 0415 09/24/24 0331 09/23/24 1649 09/23/24 0701 09/22/24 2127 09/22/24 1306 09/22/24 0614 09/21/24 1152 09/21/24 0230 SODIUM mmol/L 141 141 -- 143 142 143 144 < > 148* POTASSIUM mmol/L 4.0 4.3 -- 4.4 4.5 4.1 4.4 < > 3.9 CREATININE mg/dL 0.80 1.06* -- 0.91 -- -- 1.01* -- 1.27* BEDSIDE GLUCOSE mg/dL -- -- 153* -- -- -- -- -- -- GLUCOSE mg/dL 165* 120* -- 106* -- -- 129* -- 127* CALCIUM mg/dL 8.6 8.7 -- 9.0 -- -- 9.0 -- 9.2 WBC x10E9/L 23.8* 26.5* -- 15.1* -- -- 13.7* -- 12.2* HEMATOCRIT % 34.4* 34.8* -- 37.3 -- -- 38.0 -- 33.6* HEMOGLOBIN g/dL 11.1* 11.2* -- 12.3 -- -- 12.3 -- 11.0* PLATELETS X10E9/L 120* 155 -- 167 -- -- 167 -- 183 < > = values in this interval not displayed. IMAGING No new neuro imaging ASSESSMENT Right temporal glioma s/p resection PLAN - Continue serial neuro checks - Continue Keppra 500mg BID for seizure ppx - Recommend SBP <140mmhg - Decadron taper ordered. - Okay for diet and activity from a NS standpoint - DVT prophylaxis: EPCs, Lovenox 40 mg QD started. No blood thinners. - Follow up appointment scheduled - Remainder of care per primary team. Neurosurgery will sign off at this time. Please call with questions or concerns. JACQUELINE Chun Neurosurgery [facility] Patient Touch 09/26/24 2:31 PM To find out which DIANE is on for the day please go to ON-Call Finder in [employer] or [employer] and use log in [employer] and search for [facility] Neurosurgery JACQUELINE Roth 09/26/24 3472 Images from the original note were not included. FOLLOW-UP: Post-Intensive Care Rounding Note Patient: Anupama Vasquez : 1970 Age: 54 y.o. Length of Stay: 7 days Admission Diagnosis: Brain mass [G93.89] BRANDON (acute kidney injury) [N17.9] Altered mental status, unspecified altered mental status type [R41.82] AMS (altered mental status) [R41.82] Arrhythmia [I49.9] Reviewing patient due to her recent transfer out from Intensive Care. Recorded vital signs are stable and the patient is not noted to be in any apparent distress. Telemetry and monitoring noted. Staff may call with any issues or concerns regarding her clinical presentation or stability. Thank you, Arabella Burt RN Rapid Response: [facility] NUTRITION ADULT FOLLOW UP NUTRITION ASSESSMENT: Patient History: Brief Clinical Summary: Labs:past medical history significant for MS, who initially presented to [facility] from her rehab facility with complaints of altered mental status. Patient with BRANDON, acute urine retention, found to have right temporal mass. Biochemical Data, Medical Tests, and Procedures: 09/23 OR Craniotomy for tumor excision 09/24- VFSS- minced and moist MT2 liquids Results from last 3 days Lab Units 09/25/2441409/24/2433009/23/24 0701 SODIUM mmol/L 141 141 143 POTASSIUM mmol/L 4.0 4.3 4.4 CHLORIDE mmol/L 107 108 111* CO2 mmol/L 24 23 24 BUN mg/dL 24* 27* 25* CREATININE mg/dL 0.80 1.06* 0.91 CALCIUM mg/dL 8.6 8.7 9.0 ALBUMIN g/dL -- 3.3 -- ALK PHOS U/L -- 61 -- ALT U/L -- 33* -- AST U/L -- 19 -- Results from last 7 days Lab Units 09/25/2441409/24/2433009/23/24 1649 09/23/24 0701 09/22/24 0614 09/21/24 0230 09/20/24 0259 BEDSIDE GLUCOSE mg/dL -- -- 153* -- -- -- -- GLUCOSE mg/dL 165* 120* -- 106* 129* 127* 149* Results from last 3 days Lab Units 09/25/2441409/24/24 03309/23/24 0701 WBC x10E9/L 23.8* 26.5* 15.1* HEMOGLOBIN g/dL 11.1* 11.2* 12.3 HEMATOCRIT % 34.4* 34.8* 37.3 PLATELETS X10E9/L 120* 155 167 MCV fL 83 82 82 Results from last 3 days Lab Units 09/25/2441409/24/24 0331 09/23/24 0701 MAGNESIUM mg/dL 1.8 2.3 1.8 Results from last 3 days Lab Units 09/25/2441409/24/24 0331 09/23/24 0701 PHOSPHORUS mg/dL 2.3* 3.5 3.0 CALCIUM, IONIZED mg/dL 4.8 4.9 4.8 Results from last 3 days Lab Units 09/24/24 0331 BILIRUBIN, TOTAL mg/dL 0.4 Lab Results Component Value Date HGBA1C 5.4 09/19/2024 Lab Results Component Value Date IRON 56 09/19/2024 TIBC 309 09/19/2024 FERRITIN 130 09/19/2024 Lab Results Component Value Date IRONSAT 18 09/19/2024 Lab Results Component Value Date CHOL 151 08/29/2024 Lab Results Component Value Date CHDL 5.2 (H) 08/29/2024 Lab Results Component Value Date HDL 29 (L) 08/29/2024 Lab Results Component Value Date LDLCALC 100 08/29/2024 Lab Results Component Value Date TRIG 112 08/29/2024 Lab Results Component Value Date VERYLOWLIP 22 08/29/2024 Lab Results Component Value Date IHZMUMHH10 517 09/19/2024 Lab Results Component Value Date FOLATE 13.1 09/19/2024 No results found for: VITD25 Comments (labs): phos 2.3 L Medications/ Parenteral: Current Facility-Administered Medications Medication Dose Route Frequency Provider Last Rate Last Admin acetaminophen (TYLENOL) tablet 650 mg 650 mg oral Q6H PRN MARCELLE Spencer 650 mg at 09/22/242122 Or acetaminophen (TYLENOL) 650 mg/20.3 mL solution 650 mg 650 mg nasogastric Q6H PRN MARCELLE Spencer bisacodyL (DULCOLAX) suppository 10 mg 10 mg rectal Daily PRN MARCELLE Spencer calcium gluconate 3,000 mg in sodium chloride 0.9 % 100 mL IVPB 3,000 mg intravenous PRN JACQUELINE Hughes calcium gluconate 4,000 mg in sodium chloride 0.9 % 250 mL IVPB 4,000 mg intravenous PRN JACQUELINE Hughes calcium gluconate IVPB 2000 mg/100 mL (20 mg/mL premix) 2,000 mg intravenous PRN JACQUELINE Hughes dexAMETHasone (DECADRON) injection 4 mg 4 mg intravenous Q6H [facility] PEGGY VazquezREGENERATOR OPERATOR 4 mg at 09/25/24 0535 dextrose (GLUTOSE) 40 % gel 15 g 15 g oral PRN MARCELLE Spencer dextrose 2.5 % in water, 1,000 mL infusion 50-150 mL/hr intravenous Continuous JACQUELINE Hughes Stopped at 09/22/24 0745 dextrose 50 % in water (D50W) 50% solution 25 mL 25 mL intravenous PRN MARCELLE Spencer glucagon HCL injection 1 mg 1 mg intramuscular PRN MARCELLE Spencer hydrALAZINE (APRESOLINE) injection 10 mg 10 mg intravenous Q6H PRN MARCELLE Spencer 10 mg at 09/24/24 2338 labetaloL (NORMODYNE,TRANDATE) injection 10 mg 10 mg intravenous Q5 Min PRN Jair Espinal MD 10 mg at 09/23/24 2153 levETIRAcetam (KEPPRA) IVPB 500 mg/100 mL in iso-osmotic sodium chloride (5 mg/mL premix) 500 mg intravenous Q12H JACQUELINE Vazquez Stopped at 09/25/24 0558 magnesium sulfate IVPB 2000 mg/50 mL in iso-osmotic water (40 mg/mL premix) 2,000 mg intravenous PRN JACQUELINE Hughes Stopped at 09/25/24 0824 magnesium sulfate IVPB 4000 mg/100 mL in iso-osmotic water (40 mg/mL premix) 4,000 mg intravenous PRN Steffanie Lozano APRN-REGENERATOR OPERATOR metoprolol tartrate (LOPRESSOR) tablet 25 mg 25 mg oral BID Jair Espinal MD 25 mg at 09/25/24 0816 mirtazapine (REMERON CANDI-TAB) disintegrating tablet 15 mg 15 mg oral Nightly Jair Espinal MD 15 mg at 09/24/24 2204 niCARdipine (CARDENE) infusion 25 mg/50 mL in sodium chloride 0.9% (0.5 mg/mL cmpd premix) 5-15 mg/hr intravenous Continuous PRN Jair Espinal MD polyethylene glycol (GLYCOLAX) packet 17 g 17 g oral Daily PRN MARCELLE Spencer potassium chloride (K-TAB,KLOR-CON) CR tablet 20-60 mEq 20-60 mEq oral PRN Steffanie E Walker, YARDER PUNCHER-REGENERATOR OPERATOR Or potassium chloride (KAYCIEL) 20 mEq/15 mL solution 20-60 mEq 20-60 mEq oral PRN Steffanie E Walker, YARDER PUNCHER-REGENERATOR OPERATOR Or potassium chloride IVPB 10 mEq/100 mL in water (0.1 mEq/mL premix) 10 mEq intravenous PRN Steffanie E Blake, YARDER PUNCHER-REGENERATOR OPERATOR sennosides-docusate sodium (SENOKOT-S) 8.6-50 mg 2 tablet 2 tablet oral Nightly Jair Espinal MD 2 tablet at 09/24/24 2204 sodium phosphate 20 mmol in sodium chloride 0.9 % 250 mL IVPB 20 mmol intravenous PRN Steffanie E Blake, YARDER PUNCHER-REGENERATOR OPERATOR Or sodium phosphate 20 mmol in sodium chloride 0.9 % 100 mL IVPB 20 mmol intravenous PRN Steffanie E Blake, YARDER PUNCHER-REGENERATOR OPERATOR Or sod phos di, mono-K phos mono (K-PHOS NEUTRAL) 250 mg tablet 2 tablet 2 tablet oral PRN Steffanie E Blake, YARDER PUNCHER-REGENERATOR OPERATOR sodium chloride 0.9 % infusion 3 mL/hr intra-arterial Continuous Jair Espinal MD 3 mL/hr at 09/25/24 0705 3 mL/hr at 09/25/24 0705 Nutrition Focused Physical Findings one stool today 1770ml UO yesterday Skin (per nursing flow sheets): Skin Color: [place] (09/25/24 08) Skin Temp: Warm; Dry (09/25/24 08) Wound (per nursing flow sheets): Wound 09/23/24 Incision Head Right-Site Assessment: Unable to assess (09/25/24 0800) Wound 09/19/24 Skin Tear Thigh Anterior;Left-Site Assessment: Excoriated (09/25/24 0400) Wound 09/19/24 Pressure Injury Buttocks Left-Site Assessment: Clean; Dry; Intact (09/25/24 08) Gastrointestinal (per nursing flow sheets): Abdomen Assessment: Soft (09/25/24 0800) Last BM Date: 09/25/24 (09/25/24 09) Passing Flatus: Yes (09/25/24 08) RUQ Bowel Sounds: Present (09/25/24 08) LUQ Bowel Sounds: Present (09/25/24 08) RLQ Bowel Sounds: Present (09/25/24 0800) LLQ Bowel Sounds: Present (09/25/24 08) GI Symptoms: None (09/25/24799) Edema (per nursing flow sheets): RLE Edema: +2 (09/25/24 08) LLE Edema: +2 (09/25/24799) Intake/ Output Last 24 hrs: Intake/Output Summary (Last 24 hours) at 09/25/2024 1148 Last data filed at 09/25/2024 0848 Gross per 24 hour Intake 783.81 ml Output 1680 ml Net -896.19 ml Food/Nutrition Related History: Diet/ Nutrition Order Review: Dietary Orders (From admission, onward) Start Ordered 09/24/24 1405 Adult diet Level 5 Minced and Moist diet; No straws Diet effective now Comments: Mildly thick liquids Question Answer Comment Diet Type: Level 5 Minced and Moist diet Additional Liquid/Fluid Modifiers: No straws 09/24/24 1407 Diet Intakes: Percent Meals Eaten (%): 100 (09/25/24 1000) Anthropometrics: Last 3 Weight Readings 09/23/24 1650 09/24/24 0000 09/25/24 0100 Weight: 115.3 kg (254 lb 3.1 oz) 116.2 kg (256 lb 2.8 oz) 115 kg (253 lb 8.5 oz) Admit Weight: 119.4kg (Bed Scale, 09/19/24) [place] Body Weight: 61.4kg Weight Changes: 8.5kg loss/3 months (7%), stable inpatient +/- 2kg Current Body Mass Index: Body mass index is 41.7 kg/m . Comparative Standards: Estimated Energy Needs: 1202-3749 kcals daily. Method and weight used: 28-32 kcal/kg IBW Estimated Protein Needs: 74-123 grams daily. Method and weight used: 1.2-2g protein/kg IBW Estimated Fluid Needs: 7900-4772 ml daily. Method weight used: 28-32 ml/kg IBW Comments: general needs Malnutrition Status: Malnutrition Present: need more information NUTRITION DIAGNOSIS: Clinical Diagnosis: Swallowing difficulty (NC 1.1) Ongoing NUTRITION INTERVENTIONS: Meals & snacks: will add a magic cup to each tray, 290kcal and 9g protein per serving. GOAL(S): meet estimated protein/kcal needs NUTRITION MONITORING AND EVALUATION: po/supplement tolerance, weight/lab trends, POC Nikki Saez R.D, L.D. Clinical dietitian Patient Touch extension:[phone] Direct Dial phone number: [phone] 09/25/24 12:04 PM Images from the original note were not included. [facility] [place] [address] [address] [facility] [id number] Hospital Medicine Progress Note Patient: Anupama Vasquez Date of : 1970 Room: [place] [address] PCP: FRED GRACIA APRN-REGENERATOR OPERATOR Admission date: 09/18/2024 11:59 PM Encounter date: 09/25/24 Hospital Day: 8 SUBJECTIVE Chief complaints: Chief Complaint Patient presents with Altered Mental Status Evaluation of Abnormal Diagnostic Test Interval History: Status: stable. No overnight events per bedside RN. Patient is resting in bed in no acute distress. More awake and interactive today. Remains confused. Review of Systems Unable to perform ROS: Mental status change OBJECTIVE BP (!) 145/93 Pulse 92 Temp 36.8 C (98.2 F) (Oral) Resp (!) 26 Ht 167.6 cm (5' 5.98 ) Wt 115 kg (253 lb 8.5 oz) LMP (LMP Unknown) Comment: post menopause SpO2 93% BMI 40.94 kg/m Temp: [36.4 C (97.6 F)-37.2 C (98.9 F)] 36.8 C (98.2 F) Pulse: [84-107] 92 Resp: [16-36] 26 Arterial Line BP: (116-164)/(51-80) 118/55 SpO2: [92 %-95 %] 93 % O2 Device: Nasal cannula Intake/Output Summary (Last 24 hours) at 09/25/2024 1106 Last data filed at 09/25/2024 0848 Gross per 24 hour Intake 783.81 ml Output 1680 ml Net -896.19 ml Physical Exam Constitutional: General: She is awake. She is not in acute distress. Appearance: She is well-developed. She is obese. Interventions: She is restrained. HENT: Head: Normocephalic and atraumatic. Nose: Nose normal. Cardiovascular: Rate and Rhythm: Normal rate and regular rhythm. Heart sounds: Normal heart sounds. No murmur heard. Pulmonary: Effort: Pulmonary effort is normal. No respiratory distress. Breath sounds: Decreased air movement present. Decreased breath sounds present. No wheezing. Abdominal: General: Bowel sounds are normal. Palpations: Abdomen is soft. Tenderness: There is no abdominal tenderness. Genitourinary: Comments: Alexis catheter in place Musculoskeletal: General: Normal range of motion. Cervical back: Neck supple. Lymphadenopathy: Cervical: No cervical adenopathy. Skin: General: Skin is warm and dry. Findings: Wound (Buttocks, various skin tears) present. No rash. Neurological: Mental Status: She is alert. She is disoriented. Cranial Nerves: No facial asymmetry. Motor: Weakness (Left> right) present. Comments: More awake today Oriented to self and place; Disoriented to year, month, and situation Follows commands x4; generally weak BLE>BUE Psychiatric: Attention and Perception: She is inattentive. Mood and Affect: Affect is flat. Behavior: Behavior is slowed. Behavior is cooperative. Medications Scheduled: dexAMETHasone, 4 mg, intravenous, Q6H FELTON levETIRAcetam, 500 mg, intravenous, Q12H metoprolol tartrate, 25 mg, oral, BID mirtazapine, 15 mg, oral, Nightly sennosides-docusate sodium, 2 tablet, oral, Nightly Infusions: dextrose 2.5 % in water, 1,000 mL infusion, 50-150 mL/hr, Last Rate: Stopped (09/22/24 0745) niCARdipine, 5-15 mg/hr sodium chloride 0.9 %, 3 mL/hr, Last Rate: 3 mL/hr (09/25/24 0705) As Needed: acetaminophen OR acetaminophen bisacodyL calcium gluconate calcium gluconate calcium gluconate dextrose dextrose 50 % in water (D50W) glucagon (human recombinant) hydrALAZINE labetalol magnesium sulfate magnesium sulfate niCARdipine polyethylene glycol potassium chloride OR potassium chloride OR potassium chloride IV (Adult) sodium phosphate IV OR sodium phosphate IV - central line OR sod phos di, mono-K phos mono Allergies: Patient has no known allergies. Code Status: Full Code Labs Recent Results (from the past 24 hours) Ionized calcium Collection Time: 09/25/24 4:15 AM Result Value Ref Range IONIZED CALCIUM - ICAN 4.8 4.5 - 5.3 mg/dL Basic Metabolic Panel Collection Time: 09/25/24 4:15 AM Result Value Ref Range SODIUM 141 134 - 146 mmol/L POTASSIUM 4.0 3.5 - 5.0 mmol/L CHLORIDE 107 98 - 109 mmol/L CARBON DIOXIDE 24 22 - 32 mmol/L ANION GAP 10 5 - 15 mmol/L BLOOD UREA NITROGEN 24 (H) 5 - 23 mg/dL CREATININE 0.80 0.40 - 1.00 mg/dL GLUCOSE 165 (H) 65 - 99 mg/dL CALCIUM 8.6 8.5 - 10.5 mg/dL EGFR Non-Race Dependent 86 >=60 ml/min/1.73sq.m Magnesium Collection Time: 09/25/24 4:15 AM Result Value Ref Range MAGNESIUM 1.8 1.8 - 2.6 mg/dL Phosphorus Collection Time: 09/25/24 4:15 AM Result Value Ref Range PHOSPHORUS 2.3 (L) 2.4 - 4.9 mg/dL CBC auto differential Collection Time: 09/25/24 4:15 AM Result Value Ref Range WBC 23.8 (H) 4 - 11 x10E9/L RBC Count 4.16 3.8 - 5.2 X10E12/L Hemoglobin 11.1 (L) 11.7 - 15.5 g/dL Hematocrit 34.4 (L) 35 - 47 % MCV 83 80 - 100 fL MCH 26.7 (L) 27 - 34 pg MCHC 32.3 32 - 36 g/dL RDW 15.8 (H) 11.5 - 15 % Platelet Count 120 (L) 150 - 450 X10E9/L MPV 10.5 7 - 12 fL Myelocyte 1 % Neutrophils Relatives 86 % Lymphocytes Relative 3 % Monocytes Relative 11 % Neutrophils Absolute (M) 20.4 (H) 1.5 - 6.6 10*3/uL Lymphocytes Absolute 0.7 (L) 1.0 - 3.5 10*3/uL Monocytes Absolute 2.5 (H) 0.0 - 0.9 10*3/uL Vacuolated Neutrophils 1+ RBC Morphology Normal Differential Type CELLAVISION DIFFERENTIAL Radiology Fluoroscopy swallow motility function Result Date: 09/24/2024 FL SWALLOW MOTILITY FUNCTION HISTORY: Oropharyngeal dysphagia COMPARISON: None TECHNIQUE: Video fluoroscopic swallow study was performed in conjunction with speech pathologist. Barium contrast materials of varying consistencies administered. FINDINGS: Fluoroscopy time: 2.9 minutes Reference air kerma: 7.3 mGy Runs: 16 Thin: Penetration. Mildly thick: Penetration with use of straw. No penetration or aspiration with use of cup. Applesauce: No penetration or aspiration. Fruit: No penetration or aspiration. IMPRESSION: 1. Abnormal swallow study as detailed. 2. Please correlate with dedicated speech pathology report for additional details and recommendations. Approved by Andrey Hernández MD on 09/24/2024 1:31 PM I, Remy Christian MD have personally reviewed the image(s) and agree with and/or edited the report Finalized by Remy Christian MD on 09/24/2024 1:36 PM HOSPITAL PROBLEM LIST Principal Problem: Altered mental status, unspecified altered mental status type Active Problems: Generalized anxiety disorder with panic attacks Hyperlipidemia, acquired Multiple sclerosis (CMS-HCC) LORENZO (obstructive sleep apnea) Primary hypertension Depression, unspecified Dysphagia, oropharyngeal phase ASSESSMENT & PLAN Right temporal brain mass Metabolic encephalopathy/Altered mental status secondary to above Neurosurgery following MRI brain demonstrates right temporal mass with 14 mm midline shift and extensive surrounding vasogenic edema with mass effect compressing the right lateral ventricle and 3rd ventricle Altered mental status likely secondary to metabolic encephalopathy from above Currently on Decadron 4 mg q.6 hours for cerebral edema Leukocytosis likely secondary to steroid Currently on Keppra 500 mg b.i.d. for seizure prophylaxis 09/23 s/p craniotomy with tumor excision Ok to transfer out of ICU per Neurosurgery; Internal medicine to take primary on floor Acute kidney injury, suspect post renal, resolved Acute urinary retention, resolved Hypernatremia, resolved Hyperkalemia, resolved Nephrology signed off 09/23 Urology following peripherally Alexis catheter placed for I volume urinary retention of >1.5 L BRANDON and bilateral mild hydro ureteral nephrosis secondary to above Renal ultrasound with right nephrolithiasis with mild right hydronephrosis and mild left hydronephrosis Creatinine peaked at 9.65 on admission; previously normal in August 2024 at 0.8 Creat down to 0.08 today GFR and BUN steadily improving Alexis catheter to be maintained for at least 1 week per Urology Sodium level 141 this morning Positive blood culture- deemed likely contaminant Positive blood cultures 1/2 positive staph epi, methicillin-resistant Was started on vancomycin; discontinued today and monitor off antibiotics Repeat blood cultures x2 are NGTD Likely contaminant but will continue to monitor cultures for growth Continue to follow serial temperatures and monitor for signs/symptoms of infection while off antibiotic therapy Likely Dysphagia Previously on Tube feeds per NGT Speech therapy and Nutrition to follow Video swallow study completed 09/24 Currently on Level 5 diet; level 2 liquids, no straws Arrhythmia Bigeminy Cardiology signed off- given preoperative clearance EKG completed Echocardiogram showing preserved LVEF with [id number] mitral stenosis Maintain cardiac monitoring Buttock wound Wound care following Previously following with [facility] Wound care per orders Q.2 hours turns and skin care per protocol Hypertension Hyperlipidemia Continue metoprolol down NGT Goal SBP 90-140 PRN hydralazine/labetalol IVP Depression Generalized anxiety disorder with panic attacks Continue home dose Remeron nightly down NGT Multiple sclerosis stable DVT/VTE prophylaxis: SCD and heparin SQ. GI prophylaxis: famotidine. DC planning: TBD pending clinical progress- ok to transfer out of ICU today per Neurosurgery JACQUELINE Hamilton 09/25/2024 11:06 AM [facility] Internal Medicine 7AM-7PM & 7PM-7AM: EpicChat or page through On-Call Finder. JACQUELINE Hamilton 09/25/24 1743 JACQUELINE Hamilton 09/25/24 1744 ISkye MD, personally performed the face to face diagnostic evaluation on this patient. I have reviewed the DIANE's History, Exam, and MDM and agree with the assessment and plan as written. Images from the original note were not included. [facility] [address] [place] [address], [address] [place] [address] * NEUROSURGERY DAILY PROGRESS NOTE DATE:09/25/2024 PATIENT'S NAME: Anupama Vasquez PATIENT'S PATIENT'S : 1970 PROCEDURE POD #2 Right temporal craniotomy for resection of supratentorial mass not meningioma EVENTS LAST 24 HOURS / SUBJECTIVE Alert this AM, oriented x 3, following commands. No complaints this AM PHYSICAL EXAM Temp: [36.4 C (97.6 F)-37.2 C (98.9 F)] 37.2 C (98.9 F) Pulse: [84-107] 97 Resp: [16-36] 26 Arterial Line BP: (112-164)/(51-80) 118/55 SpO2: [92 %-96 %] 93 % O2 Device: None (Room air) Physical Exam Vitals reviewed. Constitutional: General: She is not in acute distress. Appearance: She is not toxic-appearing. HENT: Head: Normocephalic. Eyes: Extraocular Movements: Extraocular movements intact. Pupils: Pupils are equal, round, and reactive to light. Cardiovascular: Rate and Rhythm: Normal rate and regular rhythm. Pulses: Normal pulses. Pulmonary: Effort: Pulmonary effort is normal. No respiratory distress. Skin: General: Skin is warm and dry. Neurological: Mental Status: She is easily aroused. GCS: GCS eye subscore is 4. GCS verbal subscore is 4. GCS motor subscore is 6. Cranial Nerves: No dysarthria or facial asymmetry. Sensory: Sensation is intact. Motor: No weakness, tremor or abnormal muscle tone. Comments: Oriented to self, year, situation, and location but does waxe and wane per nursing Incision: Well approximated with chromic sutures. No surrounding erythema, edema, or drainage. LABORATORY DATA Results from last 7 days Lab Units 09/25/24 0415 09/24/24 0331 09/23/24 1649 09/23/24 0701 09/22/24 2127 09/22/24 1306 09/22/24 0614 09/21/24 1152 09/21/24 0230 09/19/24 0407 09/19/24 0026 SODIUM mmol/L 141 141 -- 143 142 143 144 < > 148* < > 151* POTASSIUM mmol/L 4.0 4.3 -- 4.4 4.5 4.1 4.4 < > 3.9 < > 4.6 CREATININE mg/dL 0.80 1.06* -- 0.91 -- -- 1.01* -- 1.27* < > 9.65* BEDSIDE GLUCOSE mg/dL -- -- 153* -- -- -- -- -- -- < > -- GLUCOSE mg/dL 165* 120* -- 106* -- -- 129* -- 127* < > 103* CALCIUM mg/dL 8.6 8.7 -- 9.0 -- -- 9.0 -- 9.2 < > 9.3 APTT sec -- -- -- -- -- -- -- -- -- -- 28 INR -- -- -- -- -- -- -- -- -- -- 1.2 WBC x10E9/L 23.8* 26.5* -- 15.1* -- -- 13.7* -- 12.2* < > 10.3 HEMATOCRIT % 34.4* 34.8* -- 37.3 -- -- 38.0 -- 33.6* < > 34.9* HEMOGLOBIN g/dL 11.1* 11.2* -- 12.3 -- -- 12.3 -- 11.0* < > 11.5* PLATELETS X10E9/L 120* 155 -- 167 -- -- 167 -- 183 < > 199 < > = values in this interval not displayed. IMAGING No new neuro imaging ASSESSMENT Right temporal glioma s/p resection PLAN - PATENT PARALEGAL evaluated yesterday. VSS today. - Continue serial neuro checks - Continue Keppra 500mg BID for seizure ppx - Recommend SBP <140mmhg - Continue decadron 4mg q6h. Will start weaning in the coming days. - Okay for diet and activity from a NS standpoint - SCD's for DVT ppx. Hold chemical ppx until POD#2. No blood thinners. - Medicine following. Appreciate reccomendations. - TRO ICU today BELEM Edward- [facility] Please contact via Ping Communicationt first then can utilize Patient touch/VoceraEdge if needed 09/25/24 7:08 AM To find out which DIANE is on for the day please go to [employer] and use log in Parking Panda and search for [facility] Neuro[facility] (DIANE and Phone Number is listed) JACQUELINE Vazquez 09/25/24 130 Urology Progress Note 6 Chief complaint: Urinary retention Subjective: Patient resting in bed, no acute distress, no acute events overnight. Mentation has improved. S/p craniotomy for tumor resection on 09/23. Labs today: wbc 23.8, cr 0.8, UOP 1770 Weight: 115 kg (253 lb 8.5 oz) Patient Vitals for the past 24 hrs: Temp Temp src Pulse Resp SpO2 Height Weight 09/25/24 0700 -- -- 97 (!) 26 93 % -- -- 09/25/24 0600 -- -- 101 22 93 % -- -- 09/25/24 0500 -- -- 97 (!) 36 92 % -- -- 09/25/24 0400 37.2 C (98.9 F) Axillary 101 (!) 35 93 % -- -- 09/25/24 0300 -- -- 99 (!) 27 94 % -- -- 09/25/24 0200 -- -- 103 21 94 % -- -- 09/25/24 0100 -- -- 91 21 93 % 167.6 cm (5' 5.98 ) 115 kg (253 lb 8.5 oz) 09/25/24 0000 36.4 C (97.6 F) Axillary 89 25 93 % -- -- 09/24/24 2338 -- -- 84 24 93 % -- -- 09/24/24 2300 -- -- 86 (!) 26 93 % -- -- 09/24/24 2248 -- -- 88 22 93 % -- -- 09/24/24 2200 -- -- 90 21 94 % -- -- 09/24/24 2100 -- -- 92 23 94 % -- -- 09/24/24 2000 37.1 C (98.7 F) Axillary 102 21 94 % -- -- 09/24/24 1900 -- -- 106 22 95 % -- -- 09/24/24 1800 -- -- 107 25 94 % -- -- 09/24/24 1700 -- -- 94 17 94 % -- -- 09/24/24 1600 37 C (98.6 F) Oral 98 21 94 % -- -- 09/24/24 1515 37.1 C (98.8 F) Axillary 96 17 94 % -- -- 09/24/24 1500 -- -- 103 16 94 % -- -- 09/24/24 1445 -- -- 95 (!) 26 93 % -- -- 09/24/24 1430 -- -- 100 20 93 % -- -- 09/24/24 1415 -- -- 102 19 93 % -- -- 09/24/24 1400 -- -- 94 23 94 % -- -- 09/24/24 1345 -- -- 97 (!) 26 94 % -- -- 09/24/24 1331 -- -- 98 22 93 % -- -- 09/24/24 1330 -- -- 99 17 93 % -- -- 09/24/24 1315 -- -- 93 23 93 % -- -- 09/24/24 1300 -- -- 96 21 94 % -- -- 09/24/24 1245 -- -- 95 21 94 % -- -- 09/24/24 1230 37.1 C (98.8 F) Axillary 97 22 93 % -- -- 09/24/24 1215 -- -- 100 21 93 % -- -- 09/24/24 1200 -- -- 104 18 94 % -- -- 09/24/24 1145 -- -- 99 21 94 % -- -- 09/24/24 1130 -- -- 97 23 94 % -- -- 09/24/24 1115 -- -- 98 22 93 % -- -- 09/24/24 1100 -- -- 97 20 93 % -- -- 09/24/24 1045 -- -- 94 21 92 % -- -- 09/24/24 1030 -- -- 92 19 93 % -- -- 09/24/24 1020 -- -- 94 22 92 % -- -- 09/24/24 1015 -- -- 98 21 92 % -- -- 09/24/24 1010 -- -- 99 22 93 % -- -- 09/24/24 1000 -- -- 101 21 92 % -- -- 09/24/24 0950 -- -- 99 22 92 % -- -- 09/24/24 0940 -- -- 101 17 92 % -- -- 09/24/24 0930 -- -- 99 18 92 % -- -- 09/24/24 0920 -- -- 99 19 92 % -- -- 09/24/24 0910 -- -- 98 21 94 % -- -- 09/24/24 0900 -- -- 100 23 92 % -- -- 09/24/24 0850 -- -- 101 25 94 % -- -- 09/24/24 0840 -- -- 93 24 95 % -- -- 09/24/24 0835 -- -- 91 21 95 % -- -- 09/24/24 0830 -- -- 92 23 95 % -- -- 09/24/24 0820 -- -- 94 17 95 % -- -- 09/24/24 0810 -- -- 89 24 95 % -- -- 09/24/24 0800 36.9 C (98.5 F) Axillary 88 24 95 % -- -- Intake/Output Summary (Last 24 hours) at 09/25/2024 0753 Last data filed at 09/25/2024 0705 Gross per 24 hour Intake 1076.19 ml Output 1770 ml Net -693.81 ml Results from last 7 days Lab Units 09/25/24 0415 09/24/24 0331 09/23/24 1649 09/23/24 0701 POTASSIUM mmol/L 4.0 4.3 -- 4.4 CHLORIDE mmol/L 107 108 -- 111* CO2 mmol/L 24 23 -- 24 BUN mg/dL 24* 27* -- 25* CREATININE mg/dL 0.80 1.06* -- 0.91 BEDSIDE GLUCOSE -- -- < > -- GLUCOSE mg/dL 165* 120* -- 106* CALCIUM mg/dL 8.6 8.7 -- 9.0 < > = values in this interval not displayed. Results from last 7 days Lab Units 09/25/24 04109/24/24 03309/23/24 0701 WBC x10E9/L 23.8* 26.5* 15.1* HEMOGLOBIN g/dL 11.1* 11.2* 12.3 HEMATOCRIT % 34.4* 34.8* 37.3 PLATELETS X10E9/L 120* 155 167 Results from last 7 days Lab Units 09/19/24 0137 09/19/24 0123 MUCOUS -- Present* UROBILINOGEN -- <1.1 eu/dL UROBILINOGEN SORIN 0.2 E.U./dL -- Physical Exam: General exam no acute distress, resting Abdomen-nondistended, nontender, Alexis catheter in place with translucent yellow urine output. Clean dressing over the area of craniotomy Impression: 54-year-old female with acute urinary retention for 1.5 L, improving BRANDON, status post craniotomy on 09/23/24 for a brain lesion. problem list: High volume urinary retention 1.5 L with acute kidney injury (creatinine 15.68) which has now improved improved Creatinine today 0.[address] draining clear yellow urine mild bilateral hydronephrosis ultrasound 09/19/2024 4 mm nonobstructing right renal stone reported on retroperitoneal ultrasound 09/19/2024; However, no stone definitively based on CT 09/20/2024 Recommendations: No acute urological intervention indicated at this time Maintain Alexis catheter for at least 1 week after insertion. A trial of void can be attempted at that time or later, ideally when patient is in a better general condition and mentation has improved. Monitor urine output Monitor creatinine and electrolytes Rest of care per primary Margie Melissa MD PGY1 Urology Resident 09/25/24 Cosigned by Laura Suarez MD at 09/25/2024 8:01 PM EDT Associated attestation - Laura Gunn MD - 09/25/2024 8:01 PM EDT I saw the patient. I participated and was physically present during the critical/more portions of the service. I was directly involved in the management and treatment plan of the patient. I reviewed the resident s note. Additional Notes/ Findings: Continue Alexis until level of activity improved. May undergo void trial prior to discharge or as outpatient. Images from the original note were not included. [facility] I have personally performed a face to face diagnostic evaluation on this patient. I have reviewed the note authored by the advance practice provider/resident/fellow and agree with the assessment and plan. My findings are as follows. Subjective: No acute events overnight. Denies chest pain. Objective: BP (!) 145/93 Pulse 94 Temp 36.9 C (98.5 F) (Axillary) Resp 22 Ht 167.6 cm (5' 6 ) Wt 116.2 kg (256 lb 2.8 oz) LMP (LMP Unknown) Comment: post menopause SpO2 92% BMI 41.35 kg/m General: no acute distress Cardiac: Regular rate and rhythm, normal S1/S2 Lungs: Clear to ausculation Abdomen: No tenderness or swelling Ext: no edema Labs: BMP: Results from last 7 days Lab Units 09/24/24 0331 09/23/24 0701 09/22/24 2127 09/22/24 1306 09/22/24 0614 SODIUM mmol/L 141 143 142 < > 144 POTASSIUM mmol/L 4.3 4.4 4.5 < > 4.4 CHLORIDE mmol/L 108 111* 109 < > 110* CO2 mmol/L 23 24 22 < > 23 BUN mg/dL 27* 25* -- -- 24* CREATININE mg/dL 1.06* 0.91 -- -- 1.01* CALCIUM mg/dL 8.7 9.0 -- -- 9.0 PHOSPHORUS mg/dL 3.5 3.0 -- -- 3.3 MAGNESIUM mg/dL 2.3 1.8 -- -- 1.9 < > = values in this interval not displayed. 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 Plan: Patient underwent surgery yesterday. Tolerated surgery well. No further recommendations from Cardiology standpoint. Cardiology will sign off at this time. I agree with assessment and plan as detailed above. NED MACHADO MD This note was completed using a voice bender helper system. Every effort was made to ensure accuracy. However, inadvertent computerized bender helper errors may be present. Images from the original note were not included. [facility] [place] [address] [address] [facility] [id number] Hospital Medicine Progress Note Patient: Anupama Vasquez Date of : 1970 Room: [place] [id number] PCP: FRED GRACIA APRN-RUBINA Admission date: 09/18/2024 11:59 PM Encounter date: 09/24/24 Hospital Day: 7 SUBJECTIVE Chief complaints: Chief Complaint Patient presents with Altered Mental Status Evaluation of Abnormal Diagnostic Test Interval History: Status: stable. No overnight events per bedside RN. Patient is resting in bed in no acute distress. Going for repeat video swallow study today to hopefully gain diet. Patient does remain confused but able to follow commands x4. Review of Systems Unable to perform ROS: Mental status change OBJECTIVE BP (!) 145/93 Pulse 88 Temp 36.9 C (98.5 F) (Axillary) Resp 24 Ht 167.6 cm (5' 6 ) Wt 116.2 kg (256 lb 2.8 oz) LMP (LMP Unknown) Comment: post menopause SpO2 95% BMI 41.35 kg/m Temp: [36 C (96.8 F)-37.3 C (99.1 F)] 36.9 C (98.5 F) Pulse: [70-93] 88 Resp: [14-24] 24 BP: (145)/(93) 145/93 Arterial Line BP: (107-158)/(53-79) 134/59 SpO2: [92 %-100 %] 95 % O2 Device: Nasal cannula O2 Flow Rate (L/min): [6 L/min] 6 L/min Intake/Output Summary (Last 24 hours) at 09/24/2024 1011 Last data filed at 09/24/2024 0800 Gross per 24 hour Intake 2596.99 ml Output 1765 ml Net 831.99 ml Physical Exam Constitutional: General: She is not in acute distress. Appearance: She is well-developed. She is obese. Interventions: She is restrained. HENT: Head: Normocephalic and atraumatic. Nose: Nose normal. Cardiovascular: Rate and Rhythm: Normal rate. Heart sounds: Normal heart sounds. No murmur heard. Comments: Bigeminy on monitor Pulmonary: Effort: Pulmonary effort is normal. No respiratory distress. Breath sounds: Decreased air movement present. Decreased breath sounds present. No wheezing. Abdominal: General: Bowel sounds are normal. Palpations: Abdomen is soft. Tenderness: There is no abdominal tenderness. Genitourinary: Comments: Alexis catheter in place Musculoskeletal: General: Normal range of motion. Cervical back: Neck supple. Lymphadenopathy: Cervical: No cervical adenopathy. Skin: General: Skin is warm and dry. Findings: Wound (Buttocks, various skin tears) present. No rash. Neurological: Mental Status: She is lethargic and disoriented. Cranial Nerves: No facial asymmetry. Motor: Weakness (Left> right) present. Comments: Drowsy Follows commands x4; generally weak Psychiatric: Attention and Perception: She is inattentive. Mood and Affect: Affect is flat. Behavior: Behavior is slowed. Behavior is cooperative. Medications Scheduled: dexAMETHasone, 4 mg, intravenous, Q6H FELTON levETIRAcetam, 500 mg, intravenous, Q12H metoprolol tartrate, 25 mg, nasogastric, BID mirtazapine, 15 mg, nasogastric, Nightly sennosides-docusate sodium, 2 tablet, oral, Nightly Infusions: dextrose 2.5 % in water, 1,000 mL infusion, 50-150 mL/hr, Last Rate: Stopped (09/22/24 0745) niCARdipine, 5-15 mg/hr sodium chloride 0.9 %, 3 mL/hr, Last Rate: 3 mL/hr (09/24/24 0800) As Needed: acetaminophen OR acetaminophen bisacodyL calcium gluconate calcium gluconate calcium gluconate dextrose dextrose 50 % in water (D50W) glucagon (human recombinant) hydrALAZINE labetalol magnesium sulfate magnesium sulfate niCARdipine polyethylene glycol potassium chloride OR potassium chloride OR potassium chloride IV (Adult) sodium phosphate IV OR sodium phosphate IV - central line OR sod phos di, mono-K phos mono Allergies: Patient has no known allergies. Code Status: Full Code Labs Recent Results (from the past 24 hours) Bedside Glucose *Place/Obtain serum glucose if >500 per glucometer. Collection Time: 09/23/24 4:49 PM Result Value Ref Range Bedside Glucose (POC) 153 (H) 65 - 99 mg/dL Ionized calcium Collection Time: 09/24/24 3:31 AM Result Value Ref Range IONIZED CALCIUM - ICAN 4.9 4.5 - 5.3 mg/dL Magnesium Collection Time: 09/24/24 3:31 AM Result Value Ref Range MAGNESIUM 2.3 1.8 - 2.6 mg/dL Phosphorus Collection Time: 09/24/24 3:31 AM Result Value Ref Range PHOSPHORUS 3.5 2.4 - 4.9 mg/dL CBC auto differential Collection Time: 09/24/24 3:31 AM Result Value Ref Range WBC 26.5 (H) 4 - 11 x10E9/L RBC Count 4.22 3.8 - 5.2 X10E12/L Hemoglobin 11.2 (L) 11.7 - 15.5 g/dL Hematocrit 34.8 (L) 35 - 47 % MCV 82 80 - 100 fL MCH 26.5 (L) 27 - 34 pg MCHC 32.1 32 - 36 g/dL RDW 15.3 (H) 11.5 - 15 % Platelet Count 155 150 - 450 X10E9/L MPV 9.5 7 - 12 fL Neutrophils Relative 86.7 % Lymphocytes Relative 2.8 % Monocytes Relative 10.4 % Eosinophils Relative 0.0 % Basophils Relative 0.1 % Neutrophils Absolute (A) 22.9 10*3/uL Lymphocytes Absolute 0.7 10*3/uL Monocytes Absolute 2.8 10*3/uL Eosinophils Absolute 0.0 10*3/uL Basophils Absolute 0.0 10*3/uL Differential Type AUTOMATED DIFFERENTIAL Comprehensive metabolic panel Collection Time: 09/24/24 3:31 AM Result Value Ref Range SODIUM 141 134 - 146 mmol/L POTASSIUM 4.3 3.5 - 5.0 mmol/L CHLORIDE 108 98 - 109 mmol/L CARBON DIOXIDE 23 22 - 32 mmol/L ANION GAP 10 5 - 15 mmol/L BLOOD UREA NITROGEN 27 (H) 5 - 23 mg/dL CREATININE 1.06 (H) 0.40 - 1.00 mg/dL GLUCOSE 120 (H) 65 - 99 mg/dL CALCIUM 8.7 8.5 - 10.5 mg/dL TOTAL PROTEIN 6.3 6.0 - 8.0 g/dL ALBUMIN 3.3 3.2 - 5.3 g/dL ALKALINE PHOSPHATASE 61 39 - 130 U/L AST 19 <=41 U/L ALT 33 (H) <=31 U/L BILIRUBIN,TOTAL 0.4 0.3 - 1.2 mg/dL EGFR Non-Race Dependent 62 >=60 ml/min/1.73sq.m Radiology CT brain without contrast Result Date: 09/23/2024 STUDY: CT BRAIN WO CONT INDICATION: s/p crani for tumor removal. TECHNIQUE: * CT head was performed without intravenous contrast using the standard protocol. Automated exposure control was utilized. * All CT scans at this facility use dose modulation, iterative reconstruction, and/or weight based dosing when appropriate to reduce radiation dose to as low as reasonably achievable. FINDINGS: Limited exam due to postoperative and axial only imaging. Postoperative changes of right pterional craniotomy. Tumor debulking is noted. The underlying mass itself is difficult to characterize on this noncontrast CT. Mild to moderate volume of intracranial pneumocephalus. Slight interval decrease in leftward midline shift at the level of the abdomen was, now measuring 1.2 cm, previously measuring 1.5 cm. There is extensive vasogenic edema throughout the right hemisphere which is again noted. Bilateral globes, orbits appear unremarkable. Postoperative changes in the superficial tissues along the right temporal tissues. Mild mucosal thickening in the posterior ethmoid air cells. Mastoid air cells, middle ear cavities appear clear. Atherosclerosis of the carotid siphons. IMPRESSION: * Extensive postoperative changes of right pterional craniotomy and underlying mass resection. Residual tumor is difficult to assess on this noncontrast, portable imaging only technique. * Slight interval decrease in leftward midline shift. * Intracranial pneumocephalus, likely within expected limits for recent surgery. Finalized by Hebert Farrar on 09/23/2024 7:38 PM X-ray abdomen NG Tube placement 1 view Result Date: 09/23/2024 EXAM: XR ABD NG TUBE PLACEMENT 1 VIEW CLINICAL INFORMATION: new NG placed. COMPARISON: 09/20/2024 FINDINGS: The gastric tube tip is in the stomach. IMPRESSION: Gastric tube tip in stomach. Finalized by Sebastian Grayson MD on 09/23/2024 5:22 PM X-ray chest 1 view Result Date: 09/23/2024 History: Preoperative exam. History of asthma. Procedure: Chest AP portable upright Comparison: 10/06/2024 Findings: The heart and lungs show no acute findings, and the mediastinum and gema are grossly negative . No pneumothorax. Impression: No acute pulmonary process. Finalized by Shen Farooq MD on 09/23/2024 12:23 PM HOSPITAL PROBLEM LIST Principal Problem: Altered mental status, unspecified altered mental status type Active Problems: Generalized anxiety disorder with panic attacks Hyperlipidemia, acquired Multiple sclerosis (CMS-HCC) LORENZO (obstructive sleep apnea) Primary hypertension Depression, unspecified Dysphagia, oropharyngeal phase ASSESSMENT & PLAN Right temporal brain mass Metabolic encephalopathy/Altered mental status secondary to above Neurosurgery following MRI brain demonstrates right temporal mass with 14 mm midline shift and extensive surrounding vasogenic edema with mass effect compressing the right lateral ventricle and 3rd ventricle Altered mental status likely secondary to metabolic encephalopathy from above Currently on Decadron 4 mg q.6 hours for cerebral edema Currently on Keppra 500 mg b.i.d. for seizure prophylaxis 09/23 s/p craniotomy with tumor excision Remain in ICU per Neurosurgery due to waxing/waning neuro status Acute kidney injury, suspect post renal, resolved Acute urinary retention, resolved Hypernatremia, resolved Hyperkalemia, resolved Nephrology signed off 09/23 Urology following peripherally Alexis catheter placed for I volume urinary retention of >1.5 L BRANDON and bilateral mild hydro ureteral nephrosis secondary to above Renal ultrasound with right nephrolithiasis with mild right hydronephrosis and mild left hydronephrosis Creatinine peaked at 9.65 on admission; previously normal in August 2024 at 0.8 down to 1.06 today; slightly increased from yesterday GFR and BUN steadily improving Alexis catheter to be maintained for at least 1 week per Urology Sodium level 141 Positive blood culture- deemed likely contaminant Positive blood cultures 1/2 positive staph epi, methicillin-resistant Was started on vancomycin; discontinued today and monitor off antibiotics Repeat blood cultures x2 are NGTD Likely contaminant but will continue to monitor cultures for growth Continue to follow serial temperatures and monitor for signs/symptoms of infection while off antibiotic therapy Likely Dysphagia Previously on Tube feeds per NGT Speech therapy and Nutrition to follow Video swallow study today as patient is more awake Arrhythmia [facility] signed off- given preoperative clearance EKG completed Echocardiogram showing preserved LVEF with [id number] mitral stenosis Maintain cardiac monitoring Buttock wound Wound care following Previously following with [facility] Wound care per orders Q.2 hours turns and skin care per protocol Hypertension Hyperlipidemia Continue metoprolol down NGT Goal SBP 90-140 PRN hydralazine/labetalol IVP Depression Generalized anxiety disorder with panic attacks Continue home dose Remeron nightly down NGT Multiple sclerosis stable DVT/VTE prophylaxis: SCD and heparin SQ. GI prophylaxis: famotidine. DC planning: TBD pending clinical progress- keep in ICU per Neurosurgery for further frequent neuro checks JACQUELINE Hamilton 09/24/2024 10:11 AM [facility] 7AM-7PM & 7PM-7AM: EpicChat or page through On-Call Finder. JACQUELINE Hamilton 09/24/24 5602 ISkye MD, personally performed the face to face diagnostic evaluation on this patient. I have reviewed the DIANE's History, Exam, and MDM and agree with the assessment and plan as written. Urology Progress Note 5 Chief complaint: Urinary retention Subjective: Patient resting in bed, no acute distress, no events overnight. S/p craniotomy for tumor resection on 09/23. Labs today: wbc 26.5, cr 1.06, UOP 2014 Weight: 116.2 kg (256 lb 2.8 oz) Patient Vitals for the past 24 hrs: BP Temp Temp src Pulse Resp SpO2 Height Weight 09/24/24 0700 -- -- -- 90 18 96 % -- -- 09/24/24 0600 -- -- -- 83 21 96 % -- -- 09/24/24 0500 -- -- -- 86 22 96 % -- -- 09/24/24 0400 -- 37.3 C (99.1 F) -- 80 22 96 % -- -- 09/24/24 0300 -- -- -- 81 22 96 % -- -- 09/24/24 0200 -- -- -- 81 20 96 % -- -- 09/24/24 0100 -- -- -- 87 22 96 % -- -- 09/24/24 0000 -- 36.5 C (97.7 F) -- 83 19 94 % 167.6 cm (5' 6 ) 116.2 kg (256 lb 2.8 oz) 09/23/24 2300 -- -- -- 84 20 94 % -- -- 09/23/24 2200 -- -- -- 80 18 97 % -- -- 09/23/24 2105 -- -- -- 90 18 98 % -- -- 09/23/24 2100 -- -- -- 93 19 97 % -- -- 09/23/24 2000 -- 36.4 C (97.6 F) -- 86 14 96 % -- -- 09/23/24 1900 -- -- -- 89 19 98 % -- -- 09/23/24 1800 -- -- -- 93 19 95 % -- -- 09/23/24 1700 -- -- -- 90 22 92 % -- -- 09/23/24 1655 -- -- -- 80 16 95 % -- -- 09/23/24 1650 -- -- -- 82 15 96 % 167.6 cm (5' 6 ) 115.3 kg (254 lb 3.1 oz) 09/23/24 1645 -- 36.3 C (97.4 F) Oral 79 20 96 % -- -- 09/23/24 1620 -- -- -- 72 19 100 % -- -- 09/23/24 1610 -- -- -- 70 18 100 % -- -- 09/23/24 1555 -- -- -- 72 18 100 % -- -- 09/23/24 1539 -- 36 C (96.8 F) -- 72 17 100 % -- -- 09/23/24 1538 -- 36 C (96.8 F) -- 70 17 100 % -- -- 09/23/24 1233 (!) 145/93 36.8 C (98.2 F) Skin 87 20 97 % 170.2 cm (5' 7 ) 120.7 kg (266 lb) 09/23/24 0827 153/84 36.8 C (98.3 F) Oral 91 16 -- -- -- Intake/Output Summary (Last 24 hours) at 09/24/2024 0753 Last data filed at 09/24/2024 0600 Gross per 24 hour Intake 2282.33 ml Output 2015 ml Net 267.33 ml Results from last 7 days Lab Units 09/24/24 0331 09/23/24 1649 09/23/24 0701 09/22/24 2127 09/22/24 1306 09/22/24 0614 POTASSIUM mmol/L 4.3 -- 4.4 4.5 < > 4.4 CHLORIDE mmol/L 108 -- 111* 109 < > 110* CO2 mmol/L 23 -- 24 22 < > 23 BUN mg/dL 27* -- 25* -- -- 24* CREATININE mg/dL 1.06* -- 0.91 -- -- 1.01* BEDSIDE GLUCOSE -- < > -- -- -- -- GLUCOSE mg/dL 120* -- 106* -- -- 129* CALCIUM mg/dL 8.7 -- 9.0 -- -- 9.0 < > = values in this interval not displayed. Results from last 7 days Lab Units 09/24/24 0331 09/23/24 0701 09/22/24 0614 WBC x10E9/L 26.5* 15.1* 13.7* HEMOGLOBIN g/dL 11.2* 12.3 12.3 HEMATOCRIT % 34.8* 37.3 38.0 PLATELETS X10E9/L 155 167 167 Results from last 7 days Lab Units 09/19/24 0137 09/19/24 0123 MUCOUS -- Present* UROBILINOGEN -- <1.1 eu/dL UROBILINOGEN SORIN 0.2 E.U./dL -- Physical Exam: General exam no acute distress, resting Abdomen-nondistended, nontender, Alexis catheter in place with translucent yellow urine output. Clean dressing over the area of craniotomy Impression: 54-year-old female with acute urinary retention for 1.5 L, improving BRANDON, status post craniotomy on 09/23/24 for a brain lesion. problem list: High volume urinary retention 1.5 L with acute kidney injury (creatinine 15.68) which has now improved improved Creatinine today 1.[address] draining clear yellow urine mild bilateral hydronephrosis ultrasound 09/19/2024 4 mm nonobstructing right renal stone reported on retroperitoneal ultrasound 09/19/2024; However, no stone definitively based on CT 09/20/2024 Recommendations: No acute urological intervention indicated at this time Maintain Alexis catheter for at least 1 week after insertion. A trial of void can be attempted at that time or later, ideally when patient is in a better general condition and mentation has improved. Monitor urine output Monitor creatinine and electrolytes Rest of care per primary Margie Melissa MD PGY1 Urology Resident 09/24/24 Cosigned by Enid Eaton Jr., MD at 09/24/2024 6:08 PM EDT Associated attestation - Enid Eaton Jr., MD - 09/24/2024 6:08 PM EDT Attending Attestation: I saw the patient. I participated and was physically present during the critical/more portions of the service. I was directly involved in the management and treatment plan of the patient. I reviewed the resident's note. Additional Notes/Findings: Interval neurosurgery operative report reviewed. Impressions: 1. 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 Espinal for Right temporal brain mass with shift with very high volume urinary retention 1.5 L with the acute kidney injury creatinine 15.68 improved with Alexis catheter with mild bilateral hydronephrosis ultrasound 09/19/2024 2. By radiology report concern for 4 mm nonobstructing right renal stone retroperitoneal ultrasound 09/19/2024; no stone definitively CT 09/20/2024 Recommendations: 1. As above. Dr. Gunn taking over as hospitalists for our group starting tomorrow. Likely benefit long run from follow up at the [facility] office. . Thank you very much. I appreciate being asked to help with this patient's care. Enid Eaton Jr., M.D. [facility] [phone] Images from the original note were not included. 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 Constitutional: General: She is not in acute distress. Appearance: She is not toxic-appearing. HENT: Head: Normocephalic. Eyes: Extraocular Movements: Extraocular movements intact. Pupils: Pupils are equal, round, and reactive to light. Cardiovascular: Rate and Rhythm: Normal rate and regular rhythm. Pulses: Normal pulses. Pulmonary: Effort: Pulmonary effort is normal. No respiratory distress. Skin: General: Skin is warm and dry. Neurological: Mental Status: She is easily aroused. GCS: GCS eye subscore is 4. GCS verbal subscore is 4. GCS motor subscore is 6. Cranial Nerves: No dysarthria or facial asymmetry. Sensory: Sensation is intact. Motor: No weakness, tremor or abnormal muscle tone. Comments: Oriented to self, year, situation, and location but does waxe and wane per nursing Incision: Well approximated with chromic sutures. No surrounding erythema, edema, or drainage. LABORATORY DATA Results from last 7 days Lab Units 09/24/24 0331 09/23/24 1649 09/23/24 0701 09/22/24 2127 09/22/24 1306 09/22/24 0614 09/21/24 1152 09/21/24 0230 09/20/24 1114 09/20/24 0259 09/19/24 0407 09/19/24 0026 SODIUM mmol/L 141 -- 143 142 143 144 < > 148* < > 154* < > 151* POTASSIUM mmol/L 4.3 -- 4.4 4.5 4.1 4.4 < > 3.9 < > 4.0 < > 4.6 CREATININE mg/dL 1.06* -- 0.91 -- -- 1.01* -- 1.27* -- 2.60* < > 9.65* BEDSIDE GLUCOSE mg/dL -- 153* -- -- -- -- -- -- -- -- < > -- GLUCOSE mg/dL 120* -- 106* -- -- 129* -- 127* -- 149* < > 103* CALCIUM mg/dL 8.7 -- 9.0 -- -- 9.0 -- 9.2 -- 9.3 < > 9.3 APTT sec -- -- -- -- -- -- -- -- -- -- -- 28 INR -- -- -- -- -- -- -- -- -- -- -- 1.2 WBC x10E9/L 26.5* -- 15.1* -- -- 13.7* -- 12.2* -- 8.9 < > 10.3 HEMATOCRIT % 34.8* -- 37.3 -- -- 38.0 -- 33.6* -- 33.5* < > 34.9* HEMOGLOBIN g/dL 11.2* -- 12.3 -- -- 12.3 -- 11.0* -- 11.0* < > 11.5* PLATELETS X10E9/L 155 -- 167 -- -- 167 -- 183 -- 190 < > 199 < > = values in this interval not displayed. IMAGING STUDY: CT BRAIN WO CONT INDICATION: s/p crani for tumor removal. TECHNIQUE: * CT head was performed without intravenous contrast using the standard protocol. Automated exposure control was utilized. * All CT scans at this facility use dose modulation, iterative reconstruction, and/or weight based dosing when appropriate to reduce radiation dose to as low as reasonably achievable. FINDINGS: Limited exam due to postoperative and axial only imaging. Postoperative changes of right pterional craniotomy. Tumor debulking is noted. The underlying mass itself is difficult to characterize on this noncontrast CT. Mild to moderate volume of intracranial pneumocephalus. Slight interval decrease in leftward midline shift at the level of the abdomen was, now measuring 1.2 cm, previously measuring 1.5 cm. There is extensive vasogenic edema throughout the right hemisphere which is again noted. Bilateral globes, orbits appear unremarkable. Postoperative changes in the superficial tissues along the right temporal tissues. Mild mucosal thickening in the posterior ethmoid air cells. Mastoid air cells, middle ear cavities appear clear. Atherosclerosis of the carotid siphons. IMPRESSION: * Extensive postoperative changes of right pterional craniotomy and underlying mass resection. Residual tumor is difficult to assess on this noncontrast, portable imaging only technique. * Slight interval decrease in leftward midline shift. * Intracranial pneumocephalus, likely within expected limits for recent surgery. ASSESSMENT Right temporal glioma s/p resection PLAN - Post op CT imaging reviewed by Dr. Espinal. No additional acute neurosurgical intervention indicated at this time - Continue serial neuro checks - Continue Keppra 500mg BID for seizure ppx - Recommend SBP <140mmhg - Continue decadron 4mg q6h. Will start weaning in the coming days. - Okay for diet and activity from a NS standpoint - SCD's for DVT ppx. Hold chemical ppx until POD#2. No blood thinners. - Medicine following. Appreciate reccomendations. BELEM Edward- [facility] Please contact via Ping Communicationt first then can utilize Patient touch/[place] [employer] if needed 09/24/24 6:54 AM To find out which DIANE is on for the day please go to [employer] and use log in Parking Panda and search for [facility] (DIANE and Phone Number is listed) JACQUELINE Vazquez 09/24/241946 NUTRITION ADULT FOLLOW UP NUTRITION ASSESSMENT: Patient History: Brief Clinical Summary: past medical history significant for MS, who initially presented to [facility] from her rehab facility with complaints of altered mental status. Patient with BRANDON, acute urine retention, found to have right temporal mass Biochemical Data, Medical Tests, and Procedures: 09/23 OR Craniotomy planned for tumor excision Labs: Results from last 3 days Lab Units 09/23/24 0701 09/22/24 2127 09/22/24 1306 09/22/24 0614 09/21/24 1152 09/21/24 0230 SODIUM mmol/L 143 142 143 144 < > 148* POTASSIUM mmol/L 4.4 4.5 4.1 4.4 < > 3.9 CHLORIDE mmol/L 111* 109 110* 110* < > 114* CO2 mmol/L 24 22 23 23 < > 24 BUN mg/dL 25* -- -- 24* -- 24* CREATININE mg/dL 0.91 -- -- 1.01* -- 1.27* CALCIUM mg/dL 9.0 -- -- 9.0 -- 9.2 < > = values in this interval not displayed. Results from last 7 days Lab Units 09/23/24 0709/22/24 0609/21/24 0230 09/20/24 0259 09/19/24 0412 09/19/24 0407 09/19/24 0026 BEDSIDE GLUCOSE mg/dL -- -- -- -- -- 110* -- GLUCOSE mg/dL 106* 129* 127* 149* 107* -- 103* Results from last 3 days Lab Units 09/23/24 0709/22/24 0609/21/24 0230 WBC x10E9/L 15.1* 13.7* 12.2* HEMOGLOBIN g/dL 12.3 12.3 11.0* HEMATOCRIT % 37.3 38.0 33.6* PLATELETS X10E9/L 167 167 183 MCV fL 82 83 83 Results from last 3 days Lab Units 09/23/24 0709/22/24 0614 09/21/24 1152 09/21/24 0230 09/20/24 1114 MAGNESIUM mg/dL 1.8 1.9 -- 1.8 -- IONIZED MAGNESIUM mmol/L -- -- 0.61 -- 0.64 Results from last 3 days Lab Units 09/23/24 0709/22/24 0614 09/21/24 0230 PHOSPHORUS mg/dL 3.0 3.3 2.7 CALCIUM, IONIZED mg/dL 4.8 4.6 5.1 No data from last 3 days. Lab Results Component Value Date HGBA1C 5.4 09/19/2024 Lab Results Component Value Date IRON 56 09/19/2024 TIBC 309 09/19/2024 FERRITIN 130 09/19/2024 Lab Results Component Value Date IRONSAT 18 09/19/2024 Lab Results Component Value Date CHOL 151 08/29/2024 Lab Results Component Value Date CHDL 5.2 (H) 08/29/2024 Lab Results Component Value Date HDL 29 (L) 08/29/2024 Lab Results Component Value Date LDLCALC 100 08/29/2024 Lab Results Component Value Date TRIG 112 08/29/2024 Lab Results Component Value Date VERYLOWLIP 22 08/29/2024 Lab Results Component Value Date [id number] 517 09/19/2024 Lab Results Component Value Date FOLATE 13.1 09/19/2024 No results found for: VITD25 Comments (labs): reviewed Medications/ Parenteral: decadron, pepcid, remeron, senokot-s Current Facility-Administered Medications Medication Dose Route Frequency Provider Last Rate Last Admin acetaminophen (TYLENOL) tablet 650 mg 650 mg oral Q6H PRN MARCELLE Spencer 650 mg at 09/22/243 Or acetaminophen (TYLENOL) 650 mg/20.3 mL solution 650 mg 650 mg nasogastric Q6H PRN MARCELLE Spencer bisacodyL (DULCOLAX) suppository 10 mg 10 mg rectal Daily PRN MARCELLE Spencer calcium gluconate 3,000 mg in sodium chloride 0.9 % 100 mL IVPB 3,000 mg intravenous PRN Steffanie Lozano APRN-RUBINA calcium gluconate 4,000 mg in sodium chloride 0.9 % 250 mL IVPB 4,000 mg intravenous PRN Steffanie Lozano APRN-RUBINA calcium gluconate IVPB 2000 mg/100 mL (20 mg/mL premix) 2,000 mg intravenous PRN Steffanie Lozano APRN-RUBINA dexAMETHasone (DECADRON) injection 4 mg 4 mg intravenous Q6H FELTON Zarate APRN-REGENERATOR OPERATOR 4 mg at 09/23/24 0621 dextrose (GLUTOSE) 40 % gel 15 g 15 g oral PRN MARCELLE Spencer dextrose 2.5 % in water, 1,000 mL infusion 50-150 mL/hr intravenous Continuous Steffanie Lozano APRN-RUBINA Stopped at 09/22/24 0747 dextrose 50 % in water (D50W) 50% solution 25 mL 25 mL intravenous PRN MARCELLE Spencer glucagon HCL injection 1 mg 1 mg intramuscular PRN MARCELLE Spencer hydrALAZINE (APRESOLINE) injection 10 mg 10 mg intravenous Q6H PRN MARCELLE Spencer 10 mg at 09/22/24 1834 labetaloL (NORMODYNE,TRANDATE) injection 10 mg 10 mg intravenous Q4H PRN MARCELLE Spencer 10 mg at 09/22/24 1703 levETIRAcetam (KEPPRA) IVPB 500 mg/100 mL in iso-osmotic sodium chloride (5 mg/mL premix) 500 mg intravenous Q12H Chip Zarate APRN-RUBINA Stopped at 09/23/24 0637 magnesium sulfate IVPB 2000 mg/50 mL in iso-osmotic water (40 mg/mL premix) 2,000 mg intravenous PRN Steffanie Lozano APRN-RUBINA Stopped at 09/21/24 0527 magnesium sulfate IVPB 4000 mg/100 mL in iso-osmotic water (40 mg/mL premix) 4,000 mg intravenous PRN JACQUELINE Hughes metoprolol tartrate (LOPRESSOR) tablet 25 mg 25 mg nasogastric BID MARCELLE Sherman 25 mg at 09/23/24 0859 mirtazapine (REMERON CANDI-TAB) disintegrating tablet 15 mg 15 mg nasogastric Nightly Anjelica Venegas APRN-REGENERATOR OPERATOR 15 mg at 09/22/24 2124 polyethylene glycol (GLYCOLAX) packet 17 g 17 g oral Daily PRN MARCELLE Spencer potassium chloride (K-TAB,KLOR-CON) CR tablet 20-60 mEq 20-60 mEq oral PRN JACQUELINE Hughes Or potassium chloride (KAYCIEL) 20 mEq/15 mL solution 20-60 mEq 20-60 mEq oral PRN JACQUELINE Hughes Or potassium chloride IVPB 10 mEq/100 mL in water (0.1 mEq/mL premix) 10 mEq intravenous PRN JACQUELINE Hughes sennosides-docusate sodium (SENOKOT-S) 8.6-50 mg 2 tablet 2 tablet oral Nightly MARCELLE Spencer sodium phosphate 20 mmol in sodium chloride 0.9 % 250 mL IVPB 20 mmol intravenous PRN JACQUELINE Hughes Or sodium phosphate 20 mmol in sodium chloride 0.9 % 100 mL IVPB 20 mmol intravenous PRN Steffanie Lozano APRN-RUBINA Or sod phos di, mono-K phos mono (K-PHOS NEUTRAL) 250 mg tablet 2 tablet 2 tablet oral PRN Steffanie Lozano, YARDER PUNCHER-REGENERATOR OPERATOR Nutrition Focused Physical Findings +NG, mentation improving, BM 09/22 Skin (per nursing flow sheets): Skin Color: [place] (09/22/241939) Skin Temp: Dry; Cool (09/22/241939) Wound (per nursing flow sheets): Wound 09/19/24 Skin Tear Thigh Anterior;Left-Site Assessment: Unable to assess (dressing in place) (09/23/24409) Wound 09/19/24 Pressure Injury Buttocks Left-Site Assessment: Unable to assess (dressing in place) (09/23/24409) Gastrointestinal (per nursing flow sheets): Abdomen Assessment: Soft; Pann[place] ( Apron ); Obese (09/22/241939) Last BM Date: 09/22/24 (09/22/242099) Passing Flatus: Yes (09/22/241939) RUQ Bowel Sounds: Active (09/22/241939) LUQ Bowel Sounds: Active (09/22/241939) RLQ Bowel Sounds: Active (09/22/241939) LLQ Bowel Sounds: Active (09/22/241939) GI Symptoms: None (09/22/241939) Edema (per nursing flow sheets): RLE Edema: +2 (09/22/24719) LLE Edema: +2 (09/22/24719) Intake/ Output Last 24 hrs: Intake/Output Summary (Last 24 hours) at 09/23/2024 0950 Last data filed at 09/23/2024 0848 Gross per 24 hour Intake 180 ml Output 2650 ml Net -2470 ml Food/Nutrition Related History: Diet/ Nutrition Order Review: Dietary Orders (From admission, onward) Start Ordered 09/23/24 0001 Adult diet NPO Diet effective midnight Question: Diet Type: Answer: NPO 09/21/24 1606 Diet Intakes: NPO start 09/18 Inpatient Nutrition Support History: TF started 09/21, last known rate 45 ml/hr TF: Osmolite 1.2 at 45 ml/hr, goal 65 ml/hr to provide 1872 Kcal daily 98 Gm protein daily 1279 ml Free H2O daily Anthropometrics: Ht Readings from Last 1 Encounters: 09/21/24 170.2 cm (5' 7.01 ) Last 3 Weight Readings 09/21/24 0700 09/22/24 0432 09/23/24 0500 Weight: 118.5 kg (261 lb 3.9 oz) 118.7 kg (261 lb 11 oz) 120.8 kg (266 lb 5.1 oz) Admit Weight: 119.4kg (Bed Scale, 09/19/24) [place] Body Weight: 61.4kg Weight Changes: 8.5kg loss/3 months (7%), stable inpatient +/- 2kg Current Body Mass Index: Body mass index is 41.7 kg/m . Comparative Standards: Estimated Energy Needs: 1291-3544 kcals daily. Method and weight used: 28-32 kcal/kg IBW Estimated Protein Needs: 74-123 grams daily. Method and weight used: 1.2-2g protein/kg IBW Estimated Fluid Needs: 8303-7185 ml daily. Method weight used: 28-32 ml/kg IBW Comments: general needs Malnutrition Status: Malnutrition Present: need more information NUTRITION DIAGNOSIS: Clinical Diagnosis: Swallowing difficulty (NC 1.1) Ongoing NUTRITION INTERVENTIONS: Enteral & parenteral nutrition: resume TF when medically able unless patient remains intubated after surgery please re-consult RD for TF management - Osmolite 1.2 goal 65 ml/hr to provide 98g protein, 1872 kcal, 1279 ml free water daily. GOAL(S): meet estimated protein/kcal needs NUTRITION MONITORING AND EVALUATION: TF tolerance, weight/lab trends, POC Whit Parker RD, DEISY Clinical Dietitian Direct Line Images from the original note were not included. Nephrology Daily Progress Note The events of last night reviewed, chart and all new entries , new tests reviewed Impression/Plan: Acute renal failure, resolved Right temporal mass measuring 4.1 cm, on , neurosurgery planning resection on Saturday Acute urine retention status post Alexis placement Hypernatremia, resolved Not much to add, I will sign off Interval history, patient has no complaints, no chest pain, no shortness of breath, no nausea no vomiting Vital signs in last 24 hours: Vitals: 09/22/24 2305 09/23/24 0355 09/23/24 0500 09/23/24 0827 BP: 130/79 136/84 153/84 Pulse: 96 94 91 Resp: 19 18 16 Temp: 36.7 C (98 F) 36.5 C (97.7 F) 36.8 C (98.3 F) TempSrc: Oral Oral Oral SpO2: 100% 95% Weight: 120.8 kg (266 lb 5.1 oz) Height: Intake/Output: Intake/Output Summary (Last 24 hours) at 09/23/2024 1056 Last data filed at 09/23/2024 0848 Gross per 24 hour Intake 180 ml Output 2650 ml Net -2470 ml Physical Exam: eneral appearance: alert in no acute distress. Head: Normocephalic, without obvious abnormality, atraumatic Eyes: Conjunctivae unremarkable, pupils reactive Neck: No JVD, no carotid bruit, neck supple, trachea midline cardiovascular: normal S1-S2, No gallops. Respiratory: clear to auscultation B/L, Gastrointestinal: no tenderness, no guarding, no hepatosplenomegaly could be appreciated. Muscloskeletal: No LE edema, no active arthritis, normal range of movement Neurology: Moves all extremities, alert oriented Skin: no rash, no petechia Psychiatric, no anxiety, no suicidal ideas Lymphatic: no lymphadenopathy, no lymphedema Inpatient Meds: dexAMETHasone, 4 mg, intravenous, Q6H FELTON levETIRAcetam, 500 mg, intravenous, Q12H metoprolol tartrate, 25 mg, nasogastric, BID mirtazapine, 15 mg, nasogastric, Nightly sennosides-docusate sodium, 2 tablet, oral, Nightly dextrose 2.5 % in water, 1,000 mL infusion, 50-150 mL/hr, Last Rate: Stopped (09/22/24 0747) Nutrition: Dietary Orders (From admission, onward) Start Ordered 09/23/24 0001 Adult diet NPO Diet effective midnight Question: Diet Type: Answer: NPO 09/21/24 1606 Labs: Results from last 7 days Lab Units 09/23/24 0701 09/22/24 2127 09/22/24 1306 09/22/24 0614 09/21/24 204009/21/24 1152 09/21/24 0230 09/20/24 1114 09/20/24 0259 09/19/24 1223 09/19/24 0412 SODIUM mmol/L 143 142 143 144 146 < > 148* < > 154* < > 159* 156* POTASSIUM mmol/L 4.4 4.5 4.1 4.4 4.2 < > 3.9 < > 4.0 < > 4.5 4.3 CHLORIDE mmol/L 111* 109 110* 110* 113* < > 114* < > 119* < > 120* 119* CO2 mmol/L 24 22 23 23 22 < > 24 < > 24 < > 22 22 BUN mg/dL 25* -- -- 24* -- -- 24* -- 38* -- 81* CREATININE mg/dL 0.91 -- -- 1.01* -- -- 1.27* -- 2.60* -- 7.54* CALCIUM mg/dL 9.0 -- -- 9.0 -- -- 9.2 -- 9.3 -- 9.2 MAGNESIUM mg/dL 1.8 -- -- 1.9 -- -- 1.8 -- 1.8 -- 2.4 PHOSPHORUS mg/dL 3.0 -- -- 3.3 -- -- 2.7 -- 3.5 -- 5.8* < > = values in this interval not displayed. Results from last 7 days Lab Units 09/23/24 0709/22/24 0614 09/21/24 0230 WBC x10E9/L 15.1* 13.7* 12.2* HEMOGLOBIN g/dL 12.3 12.3 11.0* HEMATOCRIT % 37.3 38.0 33.6* PLATELETS X10E9/L 167 167 183 Results from last 7 days Lab Units 09/23/24 0701 09/22/24 0614 09/21/24 0230 MAGNESIUM mg/dL 1.8 1.9 1.8 Lab Results Component Value Date CALCIUM 9.0 09/23/2024 Lab Results Component Value Date IRON 56 09/19/2024 TIBC 309 09/19/2024 FERRITIN 130 09/19/2024 Problem list Acute kidney injury secondary to acute urine retention from September of 2024. Renal ultrasound revealed right kidney of 10.6 cm left kidney of 14.0 cm with right-sided kidney stone with mild hydronephrosis on the right and left side. From September of 2024 showing negative MAGI negative MPO and PR3 antibody, normal complements, negative anti-GBM, CPK was 18, urine dipstick revealed 100 mg/dL protein moderate blood fractional excretion of sodium was 5.2% and random urine protein to creatinine ratio was 1.6 grams/gram. SPEP pending. Acute urine retention Right temporal 4.1cm brain mass with [id number] 60 mm shift with surrounding edema from September of 2024 Multiple sclerosis Left carpal tunnel release Left shoulder arthroscopy KEYANNA PERRIN MD [facility] ANY QUESTIONS FEEL FREE TO CALL: 1. OFFICE [phone] 2. ANSWERING SERVICE:[phone] YOU CAN CONTACT ME THROUGH [employer] SECURE CHAT DURING THE DAYTIME HOURS, IF NO RESPONSE AFTER 5 MINUTES CALL THE ANSWERING SERVICE This note was created with the assistance of a speech-recognition program. Although the intention is to generate a document that actually reflects the content of the visit, no guarantees can be provided that every mistake has been identified and corrected by editing. Images from the original note were not included. [facility] I have personally performed a face to face diagnostic evaluation on this patient. I have reviewed the note authored by the advance practice provider/resident/fellow and agree with the assessment and plan. My findings are as follows. Subjective: No acute events overnight. Denies chest pain or shortness of breath. Objective: BP 153/84 Pulse 91 Temp 36.8 C (98.3 F) (Oral) Resp 16 Ht 170.2 cm (5' 7.01 ) Wt 120.8 kg (266 lb 5.1 oz) LMP (LMP Unknown) SpO2 95% BMI 41.70 kg/m General: no acute distress Cardiac: Regular rate and rhythm, normal S1/S2 Lungs: Clear to ausculation Abdomen: No tenderness or swelling Ext: no edema Labs: BMP: Results from last 7 days Lab Units 09/23/24 0701 09/22/24 2127 09/22/24 1306 09/22/24 0614 09/21/24 1152 09/21/24 0230 SODIUM mmol/L 143 142 143 144 < > 148* POTASSIUM mmol/L 4.4 4.5 4.1 4.4 < > 3.9 CHLORIDE mmol/L 111* 109 110* 110* < > 114* CO2 mmol/L 24 22 23 23 < > 24 BUN mg/dL 25* -- -- 24* -- 24* CREATININE mg/dL 0.91 -- -- 1.01* -- 1.27* CALCIUM mg/dL 9.0 -- -- 9.0 -- 9.2 PHOSPHORUS mg/dL 3.0 -- -- 3.3 -- 2.7 MAGNESIUM mg/dL 1.8 -- -- 1.9 -- 1.8 < > = values in this interval not displayed. Troponin I: BNP: Assessment: Preoperative cardiovascular risk assessment Right temporal lobe mass, 4.1 cm with midline shift Calcific mitral valve disease Hypertension Hyperlipidemia H/o multiple sclerosis Metabolic encephalopathy Acute kidney injury, improved Hypernatremia, improved 1/2 positive blood culture staph epi, contaminant? Plan: Echocardiogram completed yesterday with preserved LVEF. Did have wteo-so-oaesdvmt mitral stenosis with a mean gradient of 10 mmHg at a heart rate of 75 beats per minute. Denies any chest pain or exertional symptoms. Patient to be intermediate risk for surgery but not prohibitive. No further cardiac testing needed prior to surgery. Cardiology following. I agree with assessment and plan as detailed above. NED MACHADO MD This note was completed using a voice bender helper system. Every effort was made to ensure accuracy. However, inadvertent computerized bender helper errors may be present. Images from the original note were not included. [facility] - GEN 9 ACUTE [address] [facility] [id number] Hospital Medicine Progress Note Patient: Anupama Vasquez Date of : 1970 Room: [place] [id number] PCP: FRED GRACIA APRN-REGENERATOR OPERATOR Admission date: 09/18/2024 11:59 PM Encounter date: 09/23/24 Hospital Day: 6 SUBJECTIVE Chief complaints: Chief Complaint Patient presents with Altered Mental Status Evaluation of Abnormal Diagnostic Test Interval History: Status: stable. Patient seen and evaluated at bedside. No family present. Patient is unchanged neurologically. Per bedside RN, she did somehow remove her NG tube. Patient will be leaving for surgery very shortly therefore NG may remain out at this time and can be replaced either intraop or immediately postop. Review of Systems Unable to perform ROS: Mental status change OBJECTIVE BP 153/84 Pulse 91 Temp 36.8 C (98.3 F) (Oral) Resp 16 Ht 170.2 cm (5' 7.01 ) Wt 120.8 kg (266 lb 5.1 oz) LMP (LMP Unknown) SpO2 95% BMI 41.70 kg/m Temp: [36.5 C (97.7 F)-37.1 C (98.7 F)] 36.8 C (98.3 F) Pulse: [85-96] 91 Resp: [13-20] 16 BP: (110-153)/(63-94) 153/84 SpO2: [95 %-100 %] 95 % O2 Device: None (Room air) O2 Flow Rate (L/min): [0 L/min] 0 L/min Intake/Output Summary (Last 24 hours) at 09/23/2024 1000 Last data filed at 09/23/2024 0848 Gross per 24 hour Intake 180 ml Output 2650 ml Net -2470 ml Physical Exam Constitutional: General: She is not in acute distress. Appearance: She is well-developed. She is obese. Interventions: She is restrained. HENT: Head: Normocephalic and atraumatic. Nose: Nose normal. Cardiovascular: Rate and Rhythm: Normal rate. Heart sounds: Normal heart sounds. No murmur heard. Comments: Bigeminy on monitor Pulmonary: Effort: Pulmonary effort is normal. No respiratory distress. Breath sounds: Decreased air movement present. Decreased breath sounds present. No wheezing. Abdominal: General: Bowel sounds are normal. Palpations: Abdomen is soft. Tenderness: There is no abdominal tenderness. Genitourinary: Comments: Alexis catheter in place Musculoskeletal: General: Normal range of motion. Cervical back: Neck supple. Lymphadenopathy: Cervical: No cervical adenopathy. Skin: General: Skin is warm and dry. Findings: Wound (Buttocks, various skin tears) present. No rash. Neurological: Mental Status: She is lethargic and disoriented. Cranial Nerves: No facial asymmetry. Motor: Weakness (Left> right) present. Comments: Opens eyes to voice and tactile stimulation; perseverating Drowsy Follows commands x4 Psychiatric: Attention and Perception: She is inattentive. Mood and Affect: Affect is flat. Behavior: Behavior is slowed. Behavior is cooperative. Medications Scheduled: dexAMETHasone, 4 mg, intravenous, Q6H FELTON levETIRAcetam, 500 mg, intravenous, Q12H metoprolol tartrate, 25 mg, nasogastric, BID mirtazapine, 15 mg, nasogastric, Nightly sennosides-docusate sodium, 2 tablet, oral, Nightly Infusions: dextrose 2.5 % in water, 1,000 mL infusion, 50-150 mL/hr, Last Rate: Stopped (09/22/24 0798) As Needed: acetaminophen OR acetaminophen bisacodyL calcium gluconate calcium gluconate calcium gluconate dextrose dextrose 50 % in water (D50W) glucagon (human recombinant) hydrALAZINE labetalol magnesium sulfate magnesium sulfate polyethylene glycol potassium chloride OR potassium chloride OR potassium chloride IV (Adult) sodium phosphate IV OR sodium phosphate IV - central line OR sod phos di, mono-K phos mono Allergies: Patient has no known allergies. Code Status: Full Code Labs Recent Results (from the past 24 hours) Electrolyte panel Collection Time: 09/22/24 1:06 PM Result Value Ref Range SODIUM 143 134 - 146 mmol/L POTASSIUM 4.1 3.5 - 5.0 mmol/L CHLORIDE 110 (H) 98 - 109 mmol/L CARBON DIOXIDE 23 22 - 32 mmol/L ANION GAP 10 5 - 15 mmol/L Electrolyte panel Collection Time: 09/22/24 9:27 PM Result Value Ref Range SODIUM 142 134 - 146 mmol/L POTASSIUM 4.5 3.5 - 5.0 mmol/L CHLORIDE 109 98 - 109 mmol/L CARBON DIOXIDE 22 22 - 32 mmol/L ANION GAP 11 5 - 15 mmol/L Type and screen(includes indirect sinan) Collection Time: 09/22/24 9:27 PM Result Value Ref Range ABO O RH Positive Antibody Screen Negative ABO Rh Repeat Collection Time: 09/22/24 9:27 PM Result Value Ref Range ABO O RH Positive ABO Rh Repeat Collection Time: 09/23/24 7:00 AM Result Value Ref Range ABO O RH Positive Ionized calcium Collection Time: 09/23/24 7:01 AM Result Value Ref Range IONIZED CALCIUM - ICAN 4.8 4.5 - 5.3 mg/dL Basic Metabolic Panel Collection Time: 09/23/24 7:01 AM Result Value Ref Range SODIUM 143 134 - 146 mmol/L POTASSIUM 4.4 3.5 - 5.0 mmol/L CHLORIDE 111 (H) 98 - 109 mmol/L CARBON DIOXIDE 24 22 - 32 mmol/L ANION GAP 8 5 - 15 mmol/L BLOOD UREA NITROGEN 25 (H) 5 - 23 mg/dL CREATININE 0.91 0.40 - 1.00 mg/dL GLUCOSE 106 (H) 65 - 99 mg/dL CALCIUM 9.0 8.5 - 10.5 mg/dL EGFR Non-Race Dependent 74 >=60 ml/min/1.73sq.m Magnesium Collection Time: 09/23/24 7:01 AM Result Value Ref Range MAGNESIUM 1.8 1.8 - 2.6 mg/dL Phosphorus Collection Time: 09/23/24 7:01 AM Result Value Ref Range PHOSPHORUS 3.0 2.4 - 4.9 mg/dL CBC auto differential Collection Time: 09/23/24 7:01 AM Result Value Ref Range WBC 15.1 (H) 4 - 11 x10E9/L RBC Count 4.57 3.8 - 5.2 X10E12/L Hemoglobin 12.3 11.7 - 15.5 g/dL Hematocrit 37.3 35 - 47 % MCV 82 80 - 100 fL MCH 26.9 (L) 27 - 34 pg MCHC 32.9 32 - 36 g/dL RDW 15.5 (H) 11.5 - 15 % Platelet Count 167 150 - 450 X10E9/L MPV 9.5 7 - 12 fL Neutrophils Relative 85.6 % Lymphocytes Relative 7.0 % Monocytes Relative 6.9 % Eosinophils Relative 0.1 % Basophils Relative 0.4 % Neutrophils Absolute (A) 12.9 10*3/uL Lymphocytes Absolute 1.1 10*3/uL Monocytes Absolute 1.0 10*3/uL Eosinophils Absolute 0.0 10*3/uL Basophils Absolute 0.1 10*3/uL Differential Type AUTOMATED DIFFERENTIAL Radiology Echo complete W/ contrast Result Date: 09/22/2024 Left Ventricle: Left ventricle appears normal in size. There is mild increased wall thickness/hypertrophy. Systolic function is normal with an ejection fraction of 55-60%. Right Ventricle: Systolic function is normal. Normal tricuspid annular plane systolic excursion. Mitral Valve: There is trace regurgitation. There is moderate stenosis. The mean gradient is 10.00 mmHg. The peak gradient is 20.07 mmHg. Pericardium: There is a trivial pericardial effusion. Aorta: The aortic root is normal in size. HOSPITAL PROBLEM LIST Principal Problem: Altered mental status, unspecified altered mental status type Active Problems: Generalized anxiety disorder with panic attacks Hyperlipidemia, acquired Multiple sclerosis (CMS-HCC) LORENZO (obstructive sleep apnea) Primary hypertension Depression, unspecified Dysphagia, oropharyngeal phase ASSESSMENT & PLAN Right temporal brain mass Metabolic encephalopathy/Altered mental status secondary to above Neurosurgery following MRI brain demonstrates right temporal mass with 14 mm midline shift and extensive surrounding vasogenic edema with mass effect compressing the right lateral ventricle and 3rd ventricle Altered mental status likely secondary to metabolic encephalopathy from above Continues to be drowsy with left-sided weakness Currently on Decadron 4 mg q.6 hours for cerebral edema Currently on Keppra 500 mg b.i.d. for seizure prophylaxis Plans for OR today with Neurosurgery for craniotomy with tumor excision- has been NPO since midnight Transfer to ICU postoperatively under neurosurgery Acute kidney injury, suspect post renal, resolved Acute urinary retention, resolved Hypernatremia, resolved Hyperkalemia, resolved Nephrology signed off 09/23 Urology following peripherally Alexis catheter placed for I volume urinary retention of 1.5 L BRANDON and bilateral mild hydro ureteral nephrosis secondary to above Renal ultrasound with right nephrolithiasis with mild right hydronephrosis and mild left hydronephrosis Creatinine peaked at 9.65 on admission; previously normal in August 2024 at 0.8 down to 0.91 today; GFR and BUN steadily improving Alexis catheter to be maintained for at least 1 week per Urology Sodium level 143 Positive blood culture- deemed likely contaminant Positive blood cultures 1/2 positive staph epi, methicillin-resistant Was started on vancomycin; discontinued today and monitor off antibiotics Repeat blood cultures x2 are NGTD Likely contaminant but will continue to monitor cultures for growth Continue to follow serial temperatures and monitor for signs/symptoms of infection Likely Dysphagia Too drowsy for swallow study NGT pulled by patient immediately prior to surgery today- replace NG tube intra op/postoperatively and obtain abdominal x-ray for confirmation of placement Tube feeds per NGT once okay with Neurosurgery postoperatively Speech therapy and Nutrition to follow Arrhythmia Bigeminy Cardiology signing off- have given preoperative clearance EKG completed Echocardiogram showing preserved LVEF with [id number] mitral stenosis Maintain cardiac monitoring Buttock wound Wound care following Previously following with [facility] Wound care per orders Q.2 hours turns and skin care per protocol Hypertension Hyperlipidemia Continue metoprolol down NGT Goal SBP 90-140 PRN hydralazine/labetalol IVP Depression Generalized anxiety disorder with panic attacks Continue home dose Remeron nightly down NGT Multiple sclerosis stable DVT/VTE prophylaxis: SCD and heparin SQ. GI prophylaxis: famotidine. DC planning: TBD pending surgical intervention- Plans for craniotomy with tumor excision today, to ICU postoperatively under neurosurgery. JACQUELINE Hamilton 09/23/2024 10:00 AM [facility] Internal Medicine 7AM-7PM & 7PM-7AM: EpicChat or page through On-Call Finder. JACQUELINE Hamilton 09/23/24 5787 I, Skye Lara MD, personally performed the face to face diagnostic evaluation on this patient. I have reviewed the DIANE's History, Exam, and MDM and agree with the assessment and plan as written. [facility] Department of Pharmacy Pharmacy-Physician Communication Anupama Vasquez ( ) qualifies for stress ulcer prophylaxis discontinuation per [facility] Policy. Famotidine IV has been selected for discontinuation. The patient does not have any one of the independent risk factors for prophylaxis criteria: 1. Coagulopathy (INR >1.5 [not on anticoagulation], platelets <50,000, aPTT > 2x normal) 2. Mechanical ventilation > 48 hours or any two or more of the followin. Sepsis/shock 2. ICU admission > 1 week 3. Glucocorticoid therapy (>250 mg/day hydrocortisone or equiv) 4. History of ulcers/bleeding within 1 year 5. Mukherjee covering > 35% BSA 6. Head/spinal trauma 7. Organ transplantation 8. Occult or overt bleeding for > 6 days The patient also does not fit the exclusion criteria for the automatic discontinuation: 1. Use of PPI/H2RA prior to admission 2. Acute upper GI bleed/positive stool occult blood a. Use of continuous infusion or 40 mg twice daily of pantoprazole 3. H. pylori treatment 4. Gastric or duodenal ulcer 5. Patients receiving dual antiplatelet therapy or dual antithrombotic therapy 6. GERD 7. Natali-Souza syndrome If you feel that this discontinuation is not appropriate, please re-order the medication and select the Dispense As Written (JOSHUA) order indication, or an indication for use besides SUP. Thank you, Mynor Vargas RPH Images from the original note were not included. FOLLOW-UP: Post-Intensive Care Rounding Note Patient: Anupama Vasquez : 1970 Age: 54 y.o. Length of Stay: 3 days Admission Diagnosis: Brain mass [G93.89] BRANDON (acute kidney injury) [N17.9] Altered mental status, unspecified altered mental status type [R41.82] AMS (altered mental status) [R41.82] Arrhythmia [I49.9] Reviewing patient due to her recent transfer out from Intensive Care. Recorded vital signs are stable and the patient is not noted to be in any apparent distress. Telemetry and monitoring noted. Staff may call with any issues or concerns regarding her clinical presentation or stability. Thank you, Kenya Pastrana RN Rapid Response: [facility] Images from the original note were not included. Nephrology Daily Progress Note The events of last night reviewed, chart and all new entries , new tests reviewed Impression/Plan: Acute renal failure, resolved Right temporal mass measuring 4.1 cm, on Decadron, neurosurgery planning resection on Saturday Acute urine retention status post Alexis placement Hypernatremia, resolved Interval history,not in the room Vital signs in last 24 hours: Vitals: 09/22/24 0832 09/22/24 0958 09/22/24 1145 09/22/24 1232 BP: 146/87 110/72 Pulse: 82 73 85 89 Resp: 18 17 17 20 Temp: 36.6 C (97.9 F) TempSrc: Oral SpO2: 98% 95% 96% 97% Weight: Height: Intake/Output: Intake/Output Summary (Last 24 hours) at 09/22/2024 1601 Last data filed at 09/22/2024 1145 Gross per 24 hour Intake 1438.34 ml Output 2550 ml Net -1111.66 ml Physical Exam: Not in the room Inpatient Meds: dexAMETHasone, 4 mg, intravenous, Q6H FELTON famotidine, 20 mg, intravenous, Q48H heparin (porcine), 5,000 Units, subcutaneous, Q8H FELTON levETIRAcetam, 500 mg, intravenous, Q12H metoprolol tartrate, 12.5 mg, nasogastric, BID mirtazapine, 15 mg, nasogastric, Nightly sennosides-docusate sodium, 2 tablet, oral, Nightly dextrose 2.5 % in water, 1,000 mL infusion, 50-150 mL/hr, Last Rate: Stopped (09/22/24 0747) Nutrition: Dietary Orders (From admission, onward) Start Ordered 09/23/24 0001 Adult diet NPO Diet effective midnight Question: Diet Type: Answer: NPO 09/21/24 1606 09/21/24 1157 Tube feeding No tray-Continuous Tube feeding No Tray-Continuous; Nasogastric or Oral gastric feeding tube; Standard; 15; 10; Every 8 hours; 65 Continuous Comments: Osmolite 1.2 References: Formulary Card Question Answer Comment Diet Type: Tube feeding No Tray-Continuous Tube Type: Nasogastric or Oral gastric feeding tube Tube Feeding Formula: Standard Tube Feeding Start Rate (mL/hour): 15 Increase Rate by (mL/hour): 10 Frequency of Rate increase: Every 8 hours Goal Rate (mL/hour): 65 09/21/24 1157 Labs: Results from last 7 days Lab Units 09/22/24 1306 09/22/24 0614 09/21/24 2041 09/21/24 1152 09/21/24 0230 09/20/24 1114 09/20/24 0259 09/19/24 1223 09/19/24 0412 09/19/24 0026 SODIUM mmol/L 143 144 146 145 148* < > 154* < > 159* 156* 151* POTASSIUM mmol/L 4.1 4.4 4.2 4.1 3.9 < > 4.0 < > 4.5 4.3 4.6 CHLORIDE mmol/L 110* 110* 113* 112* 114* < > 119* < > 120* 119* 120* CO2 mmol/L 23 23 22 24 24 < > 24 < > 22 22 14* BUN mg/dL -- 24* -- -- 24* -- 38* -- 81* 91* CREATININE mg/dL -- 1.01* -- -- 1.27* -- 2.60* -- 7.54* 9.65* CALCIUM mg/dL -- 9.0 -- -- 9.2 -- 9.3 -- 9.2 9.3 MAGNESIUM mg/dL -- 1.9 -- -- 1.8 -- 1.8 -- 2.4 -- PHOSPHORUS mg/dL -- 3.3 -- -- 2.7 -- 3.5 -- 5.8* -- < > = values in this interval not displayed. Results from last 7 days Lab Units 09/22/24 0609/21/24 02309/20/24 0259 WBC x10E9/L 13.7* 12.2* 8.9 HEMOGLOBIN g/dL 12.3 11.0* 11.0* HEMATOCRIT % 38.0 33.6* 33.5* PLATELETS X10E9/L 167 183 190 Results from last 7 days Lab Units 09/22/24 0614 09/21/24 0230 09/20/24 0259 MAGNESIUM mg/dL 1.9 1.8 1.8 Lab Results Component Value Date CALCIUM 9.0 09/22/2024 Lab Results Component Value Date IRON 56 09/19/2024 TIBC 309 09/19/2024 FERRITIN 130 09/19/2024 Problem list Acute kidney injury secondary to acute urine retention from September of 2024. Renal ultrasound revealed right kidney of 10.6 cm left kidney of 14.0 cm with right-sided kidney stone with mild hydronephrosis on the right and left side. From September of 2024 showing negative MAGI negative MPO and PR3 antibody, normal complements, negative anti-GBM, CPK was 18, urine dipstick revealed 100 mg/dL protein moderate blood fractional excretion of sodium was 5.2% and random urine protein to creatinine ratio was 1.6 grams/gram. SPEP pending. Acute urine retention Right temporal 4.1cm brain mass with tuoye-gj-oxjg 60 mm shift with surrounding edema from September of 2024 Multiple sclerosis Left carpal tunnel release Left shoulder arthroscopy KEYANNA PERRIN MD [facility] ANY QUESTIONS FEEL FREE TO CALL: 1. OFFICE [phone] 2. ANSWERING SERVICE:[phone] YOU CAN CONTACT ME THROUGH [employer] SECURE CHAT DURING THE DAYTIME HOURS, IF NO RESPONSE AFTER 5 MINUTES CALL THE ANSWERING SERVICE This note was created with the assistance of a speech-recognition program. Although the intention is to generate a document that actually reflects the content of the visit, no guarantees can be provided that every mistake has been identified and corrected by editing. Images from the original note were not included. [place] [facility] - GEN 9 ACUTE [address] [facility] [id number] Hospital Medicine Progress Note Patient: Anupama Vasquez Date of : 1970 Room: 24/ PCP: FRED GRACIA APRN-RUBINA Admission date: 09/18/2024 11:59 PM Encounter date: 09/22/24 Hospital Day: 5 SUBJECTIVE Chief complaints: Chief Complaint Patient presents with Altered Mental Status Evaluation of Abnormal Diagnostic Test Interval History: Status: stable. No overnight events or new complaints. Patient remains confused and perseverating. She was able to follow commands in all 4 extremities. She was able to tell me her 1st and last name however she was otherwise unable to answer orientation questions. Plans for craniotomy with tumor resection tomorrow 09/23. Review of Systems Unable to perform ROS: Mental status change OBJECTIVE BP 146/87 Pulse 73 Temp 36.9 C (98.5 F) (Oral) Resp 17 Ht 170.2 cm (5' 7.01 ) Wt 118.7 kg (261 lb 11 oz) LMP (LMP Unknown) SpO2 95% BMI 40.98 kg/m Temp: [36.6 C (97.9 F)-36.9 C (98.5 F)] 36.9 C (98.5 F) Pulse: [73-96] 73 Resp: [17-22] 17 BP: (104-154)/(66-91) 146/87 SpO2: [93 %-98 %] 95 % O2 Device: None (Room air) O2 Flow Rate (L/min): [0 L/min] 0 L/min Intake/Output Summary (Last 24 hours) at 09/22/2024 1040 Last data filed at 09/22/2024 0900 Gross per 24 hour Intake 1438.34 ml Output 2650 ml Net -1211.66 ml Physical Exam Constitutional: General: She is not in acute distress. Appearance: She is well-developed. She is obese. Interventions: She is restrained. HENT: Head: Normocephalic and atraumatic. Nose: Nose normal. Comments: NGT Cardiovascular: Rate and Rhythm: Normal rate. Heart sounds: Normal heart sounds. No murmur heard. Comments: Bigeminy on monitor Pulmonary: Effort: Pulmonary effort is normal. No respiratory distress. Breath sounds: Normal breath sounds. Decreased air movement present. No wheezing. Abdominal: General: Bowel sounds are normal. Palpations: Abdomen is soft. Tenderness: There is no abdominal tenderness. Genitourinary: Comments: Alexis catheter in place Musculoskeletal: General: Normal range of motion. Cervical back: Neck supple. Lymphadenopathy: Cervical: No cervical adenopathy. Skin: General: Skin is warm and dry. Findings: Wound (Buttocks, various skin tears) present. No rash. Neurological: Mental Status: She is lethargic and disoriented. Cranial Nerves: No facial asymmetry. Motor: Weakness (Left> right) present. Comments: Opens eyes to voice and tactile stimulation; perseverating Drowsy Follows commands x4 Psychiatric: Attention and Perception: She is inattentive. Mood and Affect: Affect is flat. Behavior: Behavior is slowed. Behavior is cooperative. Medications Scheduled: dexAMETHasone, 4 mg, intravenous, Q6H FELTON famotidine, 20 mg, intravenous, Q48H heparin (porcine), 5,000 Units, subcutaneous, Q8H FELTON levETIRAcetam, 500 mg, intravenous, Q12H metoprolol tartrate, 12.5 mg, nasogastric, BID mirtazapine, 15 mg, nasogastric, Nightly sennosides-docusate sodium, 2 tablet, oral, Nightly vancomycin, 1,750 mg, intravenous, Once vancomycin, , intravenous, Dosed by Levels Infusions: dextrose 2.5 % in water, 1,000 mL infusion, 50-150 mL/hr, Last Rate: Stopped (09/22/24 0747) As Needed: acetaminophen OR acetaminophen bisacodyL calcium gluconate calcium gluconate calcium gluconate dextrose dextrose 50 % in water (D50W) glucagon (human recombinant) hydrALAZINE labetalol magnesium sulfate magnesium sulfate polyethylene glycol potassium chloride OR potassium chloride OR potassium chloride IV (Adult) sodium phosphate IV OR sodium phosphate IV - central line OR sod phos di, mono-K phos mono Allergies: Patient has no known allergies. Code Status: Full Code Labs Recent Results (from the past 24 hours) Ionized magnesium Collection Time: 09/21/24 11:52 AM Result Value Ref Range IONIZED MAGNESIUM 0.61 0.45 - 0.74 mmol/L Vancomycin, random Collection Time: 09/21/24 11:52 AM Result Value Ref Range VANCOMYCIN 16.0 5.0 - 40.0 ug/mL Narrative Peak 30-40 ug/mL Trough 5-20 ug/ml Electrolyte panel Collection Time: 09/21/24 11:52 AM Result Value Ref Range SODIUM 145 134 - 146 mmol/L POTASSIUM 4.1 3.5 - 5.0 mmol/L CHLORIDE 112 (H) 98 - 109 mmol/L CARBON DIOXIDE 24 22 - 32 mmol/L ANION GAP 9 5 - 15 mmol/L Electrolyte panel Collection Time: 09/21/24 8:41 PM Result Value Ref Range SODIUM 146 134 - 146 mmol/L POTASSIUM 4.2 3.5 - 5.0 mmol/L CHLORIDE 113 (H) 98 - 109 mmol/L CARBON DIOXIDE 22 22 - 32 mmol/L ANION GAP 11 5 - 15 mmol/L Ionized calcium Collection Time: 09/22/24 6:14 AM Result Value Ref Range IONIZED CALCIUM - ICAN 4.6 4.5 - 5.3 mg/dL Basic Metabolic Panel Collection Time: 09/22/24 6:14 AM Result Value Ref Range SODIUM 144 134 - 146 mmol/L POTASSIUM 4.4 3.5 - 5.0 mmol/L CHLORIDE 110 (H) 98 - 109 mmol/L CARBON DIOXIDE 23 22 - 32 mmol/L ANION GAP 11 5 - 15 mmol/L BLOOD UREA NITROGEN 24 (H) 5 - 23 mg/dL CREATININE 1.01 (H) 0.40 - 1.00 mg/dL GLUCOSE 129 (H) 65 - 99 mg/dL CALCIUM 9.0 8.5 - 10.5 mg/dL EGFR Non-Race Dependent 65 >=60 ml/min/1.73sq.m Magnesium Collection Time: 09/22/24 6:14 AM Result Value Ref Range MAGNESIUM 1.9 1.8 - 2.6 mg/dL Phosphorus Collection Time: 09/22/24 6:14 AM Result Value Ref Range PHOSPHORUS 3.3 2.4 - 4.9 mg/dL CBC auto differential Collection Time: 09/22/24 6:14 AM Result Value Ref Range WBC 13.7 (H) 4 - 11 x10E9/L RBC Count 4.57 3.8 - 5.2 X10E12/L Hemoglobin 12.3 11.7 - 15.5 g/dL Hematocrit 38.0 35 - 47 % MCV 83 80 - 100 fL MCH 27.0 27 - 34 pg MCHC 32.5 32 - 36 g/dL RDW 15.5 (H) 11.5 - 15 % Platelet Count 167 150 - 450 X10E9/L MPV 9.6 7 - 12 fL Neutrophils Relative 87.3 % Lymphocytes Relative 6.4 % Monocytes Relative 6.0 % Eosinophils Relative 0.0 % Basophils Relative 0.3 % Neutrophils Absolute (A) 11.9 10*3/uL Lymphocytes Absolute 0.9 10*3/uL Monocytes Absolute 0.8 10*3/uL Eosinophils Absolute 0.0 10*3/uL Basophils Absolute 0.0 10*3/uL Differential Type AUTOMATED DIFFERENTIAL Vancomycin, random Collection Time: 09/22/24 6:14 AM Result Value Ref Range VANCOMYCIN 16.5 5.0 - 40.0 ug/mL Narrative Peak 30-40 ug/mL Trough 5-20 ug/ml Radiology No results found. HOSPITAL PROBLEM LIST Principal Problem: Altered mental status, unspecified altered mental status type Active Problems: Generalized anxiety disorder with panic attacks Hyperlipidemia, acquired Multiple sclerosis (CMS-HCC) LORENZO (obstructive sleep apnea) Primary hypertension Depression, unspecified Dysphagia, oropharyngeal phase ASSESSMENT & PLAN Right temporal brain mass Metabolic encephalopathy/Altered mental status secondary to above Neurosurgery following MRI brain demonstrates right temporal mass with 14 mm midline shift and extensive surrounding vasogenic edema with mass effect compressing the right lateral ventricle and 3rd ventricle Altered mental status likely secondary to metabolic encephalopathy from above Continues to be drowsy with left-sided weakness Currently on Decadron 4 mg q.6 hours for cerebral edema Currently on Keppra 500 mg b.i.d. for seizure prophylaxis Plans for OR tomorrow with Neurosurgery for craniotomy with tumor excision- NPO at midnight Transfer to ICU postoperatively Acute kidney injury, suspect post renal, resolved Acute urinary retention, resolved Hypernatremia, resolved Hyperkalemia, resolved Nephrology following Urology following peripherally Alexis catheter placed for I volume urinary retention of 1.5 L BRANDON and bilateral mild hydro ureteral nephrosis secondary to above Renal ultrasound with right nephrolithiasis with mild right hydronephrosis and mild left hydronephrosis Creatinine peaked at 9.65 on admission; previously normal in August 2024 at 0.8 down to 1.01 today; GFR and BUN steadily improving Alexis catheter to be maintained for at least 1 week per Urology Sodium level 143 this morning; slowly downtrending- goal 145-150 On D2.5 per Nephro Positive blood culture Positive blood cultures 1/2 positive staph epi, methicillin-resistant Was started on vancomycin; discontinued today and monitor off antibiotics Repeat blood cultures x2 are NGTD Likely contaminant but will continue to monitor cultures for growth Continue to follow serial temperatures and monitor for signs/symptoms of infection Likely Dysphagia Too drowsy for swallow study NGT in place Tube feeds per NGT Speech therapy and Nutrition to follow Arrhythmia Bigeminy Patient noted to be in bigeminy on telemetry today Consult Cardiology for preoperative clearance EKG ordered Unable to interview patient appropriately to determine signs/symptoms or past medical history in regards to her cardiac history Buttock wound Wound care following Previously following with [facility] Wound care per orders Q.2 hours turns and skin care per protocol Hypertension Hyperlipidemia Continue metoprolol down NGT Goal SBP 90-140 Depression Generalized anxiety disorder with panic attacks Continue home dose Remeron nightly down NGT Multiple sclerosis stable DVT/VTE prophylaxis: SCD and heparin SQ. GI prophylaxis: famotidine. DC planning: TBD pending surgical intervention- Plans for craniotomy with tumor excision tomorrow 09/23, to ICU postoperatively. JACQUELINE Hamilton 09/22/2024 10:40 AM [facility] Internal Medicine 7AM-7PM & 7PM-7AM: EpicChat or page through On-Call Finder. JACQUELINE Hamilton 09/22/24 1648 JACQUELINE Hamilton 09/22/24 1650 I, Skye Lara MD, personally performed the face to face diagnostic evaluation on this patient. I have reviewed the DIANE's History, Exam, and MDM and agree with the assessment and plan as written. Images from the original note were not included. FOLLOW-UP: Post-Intensive Care Rounding Note Patient: Anupama Vasquez : 1970 Age: 54 y.o. Length of Stay: 3 days Admission Diagnosis: Brain mass [G93.89] BRANDON (acute kidney injury) [N17.9] Altered mental status, unspecified altered mental status type [R41.82] AMS (altered mental status) [R41.82] Arrhythmia [I49.9] Reviewing patient due to her recent transfer out from Intensive Care. Recorded vital signs are stable and the patient is not noted to be in any apparent distress. Telemetry and monitoring noted. Staff may call with any issues or concerns regarding her clinical presentation or stability. Thank you, He Gutierrez RN Rapid Response: [facility] Urology Progress Note 3 Chief complaint: Urinary retention Subjective: Patient resting in bed, no acute distress, no events overnight. Weight: 118.7 kg (261 lb 11 oz) Patient Vitals for the past 24 hrs: BP Temp Temp src Pulse Resp SpO2 Weight 09/22/24 0827 -- -- -- 88 18 97 % -- 09/22/24 0720 154/84 36.9 C (98.5 F) Oral 85 21 96 % -- 09/22/24 0432 (!) 131/91 36.6 C (97.9 F) Oral 83 18 95 % 118.7 kg (261 lb 11 oz) 09/21/24 2310 121/86 36.7 C (98.1 F) Oral 92 18 96 % -- 09/21/24 2222 104/66 -- -- 88 -- -- -- 09/21/24 2004 119/72 36.8 C (98.2 F) Oral 84 21 96 % -- 09/21/24 1900 137/88 -- -- 96 20 96 % -- 09/21/24 1800 139/73 -- -- 83 21 97 % -- 09/21/24 1700 129/78 -- -- 75 20 95 % -- 09/21/24 1600 127/72 -- -- 77 20 98 % -- 09/21/24 1500 134/77 -- -- 76 21 94 % -- 09/21/24 1400 141/89 -- -- 77 19 94 % -- 09/21/24 1351 145/90 -- -- -- -- -- -- 09/21/24 1200 133/78 36.8 C (98.2 F) Oral 90 22 95 % -- 09/21/24 1100 124/83 -- -- 76 20 93 % -- 09/21/24 1000 132/78 -- -- 85 20 93 % -- 09/21/24 0900 139/80 -- -- 76 19 95 % -- Intake/Output Summary (Last 24 hours) at 09/22/2024 0828 Last data filed at 09/22/2024 0720 Gross per 24 hour Intake 1408.34 ml Output 2650 ml Net -1241.66 ml Results from last 7 days Lab Units 09/22/24 0614 09/21/24 2041 09/21/24 1152 09/21/24 0230 09/20/24 1114 09/20/24 0259 POTASSIUM mmol/L 4.4 4.2 4.1 3.9 < > 4.0 CHLORIDE mmol/L 110* 113* 112* 114* < > 119* CO2 mmol/L 23 22 24 24 < > 24 BUN mg/dL 24* -- -- 24* -- 38* CREATININE mg/dL 1.01* -- -- 1.27* -- 2.60* GLUCOSE mg/dL 129* -- -- 127* -- 149* CALCIUM mg/dL 9.0 -- -- 9.2 -- 9.3 < > = values in this interval not displayed. Results from last 7 days Lab Units 09/22/24 0614 09/21/24 0230 09/20/24 0259 WBC x10E9/L 13.7* 12.2* 8.9 HEMOGLOBIN g/dL 12.3 11.0* 11.0* HEMATOCRIT % 38.0 33.6* 33.5* PLATELETS X10E9/L 167 183 190 Results from last 7 days Lab Units 09/19/24 0137 09/19/24 0123 MUCOUS -- Present* UROBILINOGEN -- <1.1 eu/dL UROBILINOGEN SORIN 0.2 E.U./dL -- Physical Exam: General exam no acute distress, resting Abdomen-nondistended, nontender, Alexis catheter in place with translucent yellow urine output Impression: 54-year-old female with acute urinary retention for 1.5 L, improving BRANDON Plan: Plans for Alexis catheter x1 week. Patient was seen and discussed with Dr. Eaton - MARCELLE STATON 09/22/24 8:31 AM MARCELLE Staton 09/22/24 0831 ENID Moreno JR, MD, personally performed the face to face diagnostic evaluation on this patient. My findings are as follows: I reviewed provider notes Nephrology, Neurosurgery, and Internal Medicine with plans for craniotomy tomorrow. Clear munira urine in Alexis catheter. Patient sleeping. Continued renal function improvement.. Impressions: 1. Right temporal brain mass with shift with very high volume urinary retention 1.5 L with the acute kidney injury creatinine 15.68 improved with Alexis catheter with mild bilateral hydronephrosis ultrasound 09/19/2024 2. By radiology report concern for 4 mm nonobstructing right renal stone retroperitoneal ultrasound 09/19/2024; no stone definitively CT 09/20/2024 Recommendations: 1. As above 2. Craniotomy plan for tomorrow. We will plan to return to see the patient . Let us know if you need further help in the interim otherwise.. Thank you very much. I appreciate being asked to help with this patient's care. Enid Eaton Jr., M.D. [facility] [phone] Images from the original note were not included. Pharmacokinetic Consult - Vancomycin Dosing Anupama Vasquez is a 54 y.o. female for whom pharmacy has been consulted for vancomycin dosing for bacteremia. Today is day 4 of vancomycin therapy. Relevant clinical data and objective history reviewed: Allergies: Patient has no known allergies. Results from last 3 days Lab Units 09/22/24 0614 09/21/24 0230 09/20/24 0259 CREATININE mg/dL 1.01* 1.27* 2.60* BUN mg/dL 24* 24* 38* WBC x10E9/L 13.7* 12.2* 8.9 HEMOGLOBIN g/dL 12.3 11.0* 11.0* HEMATOCRIT % 38.0 33.6* 33.5* MCV fL 83 83 82 Temp Readings from Last 3 Encounters: 09/22/24 36.9 C (98.5 F) (Oral) 09/16/24 36 C (96.8 F) 09/01/24 36.5 C (97.7 F) (Oral) Renal Parameters: I/O last 3 completed shifts: In: 3688.4 [I.V.:2195.8; NG/GT:90; IV Piggyback:1402.6] Out: 3625 [Urine:3625] Calculated CrCl (TBW): 60.5 mL/min Culture Data: Microbiology Results Procedure Component Value Units Date/Time Blood culture #2 [[id number]] Collected: 09/20/24732 Specimen: Blood, Venous Updated: 09/22/24721 CULTURE RESULTS NO GROWTH 2 DAYS Narrative: Suboptimal volume of blood collected, Results may be affected. Blood culture #1 [[id number]] Collected: 09/20/24728 Specimen: Blood, Venous Updated: 09/22/24721 CULTURE RESULTS NO GROWTH 2 DAYS Narrative: Suboptimal volume of blood collected, Results may be affected. Blood culture [[id number]] (Abnormal) Collected: 09/19/24122 Specimen: Blood, Venous Updated: 09/21/24 194 CULTURE RESULTS Staphylococcus, coagulase negative Staphylococcus, coagulase negative GRAM STAIN Gram positive cocci in clusters Narrative: Suboptimal volume of blood collected, Results may be affected. BLOOD CULTURE IDENTIFICATION PANEL [[id number]] (Abnormal) Collected: 09/19/24122 Specimen: Blood, Venous Updated: 09/19/24 203 Staphylococcus epidermidis PCR Detected mecA/C gene PCR Detected (Methicillin Resistance) Blood culture [[id number]] Collected: 09/19/24 0026 Specimen: Blood, Venous Updated: 09/22/24 0101 CULTURE RESULTS NO GROWTH 3 DAYS Concurrent Antibiotics: Anti-infectives (From admission, onward) Start Dose/Rate Route Frequency Ordered Stop 09/22/24 0800 vancomycin (VANCOCIN) IVPB 1750 mg in 500 mL sodium chloride 0.9% (CMPD premix) 1,750 mg 268 mL/hr over 120 Minutes intravenous Once 09/22/24 0731 09/19/24 210 vancomycin (VANCOCIN) IVPB Dosed by Levels intravenous Dosed by Levels 09/19/242100 Recent Vancomycin Serum Concentrations: Results from last 7 days Lab Units 09/22/24 0614 09/21/24 1152 09/20/24 1956 VANCOMYCIN ug/mL 16.5 16.0 10.0 Indication: bacteremia Goal Vancomycin Range: Trough 15-20 mcg/mL Assessment . Patient is currently ordered vancomycin dosed by levels. Today is day 4 of therapy. Renal function assessment: Acute Renal Failure The most recent vancomycin random level was 16.5 mcg/mL collected at 0614 on 09/22/24. This is a 16 hour level on the 4th day of therapy Patient-specific risk-factors for nephrotoxicity include: pre-existing renal impairment and concomitant nephrotoxic medications. Plan Will initiate vancomycin loading dose of 1750 mg IV x 1 dose, followed by vancomycin dose by levels The next vancomycin random concentration will be ordered for 0500 on 09/23, unless clinically indicated sooner Please see electronic record for orders Pharmacy Dosing Service to follow serum concentrations and adjust as needed based on the patient's clinical status. Thank you for consulting. Mynor Vargas RPH Images from the original note were not included. [facility] [address] [place] [address] * NEUROSURGERY DAILY PROGRESS NOTE DATE:09/21/2024 PATIENT'S NAME: Anupama Vasquez PATIENT'S PATIENT'S : 1970 PROCEDURE None EVENTS LAST 24 HOURS / SUBJECTIVE No acute events overnight. Patient resting in bed with eyes closed. Right wrist restraint on. No family at bedside. PHYSICAL EXAM Temp: [36.6 C (97.9 F)-36.9 C (98.5 F)] 36.9 C (98.4 F) Pulse: [68-111] 91 Resp: [16-23] 20 BP: (118-157)/(74-98) 139/78 SpO2: [94 %-100 %] 94 % O2 Device: None (Room air) O2 Flow Rate (L/min): [0 L/min-2 L/min] 0 L/min Physical Exam Drowsy, awakens easily Oriented to self RUE - follows commands, overcomes gravity, R wrist restraint in place RLE - Follows commands, attempts to bend at knee but unable to overcome gravity LUE - delayed response but squeezes hands, can't overcome gravity LLE - delayed response but wiggles toes, can't overcome gravity Respirations even and non labored NG in place LABORATORY DATA Results from last 7 days Lab Units 09/21/24 0230 09/20/24195509/20/24 1114 09/20/24 0259 09/19/24195709/19/24 1223 09/19/24 0446 09/19/24 0412 09/19/24 0407 09/19/24 0026 SODIUM mmol/L 148* 147* 151* 154* 154* < > -- 159* 156* -- 151* POTASSIUM mmol/L 3.9 5.1* 4.0 4.0 4.3 < > -- 4.5 4.3 -- 4.6 CREATININE mg/dL 1.27* -- -- 2.60* -- -- -- 7.54* -- 9.65* BEDSIDE GLUCOSE mg/dL -- -- -- -- -- -- -- -- 110* -- GLUCOSE mg/dL 127* -- -- 149* -- -- -- 107* -- 103* CALCIUM mg/dL 9.2 -- -- 9.3 -- -- -- 9.2 -- 9.3 APTT sec -- -- -- -- -- -- -- -- -- 28 INR -- -- -- -- -- -- -- -- -- 1.2 WBC x10E9/L 12.2* -- -- 8.9 -- -- 9.2 -- -- 10.3 HEMATOCRIT % 33.6* -- -- 33.5* -- -- 34.9* -- -- 34.9* HEMOGLOBIN g/dL 11.0* -- -- 11.0* -- -- 11.4* -- -- 11.5* PLATELETS X10E9/L 183 -- -- 190 -- -- 189 -- -- 199 < > = values in this interval not displayed. 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 Consent obtained from daughter, Anna Vasquez, via telephone. All questions answered. - Continue Decadron 4 mg every 6 hours for cerebral edema - Continue Keppra 500 mg BID for seizure prophylaxis - Sodium goal 145 -150 - Serial neuro checks - DVT ppx: SubQ heparin 5,000 units (order to stop 09/23 0000 for OR) - Diet NPO on 09/23 at 0000 - Remainder of care per ICU team and consulting teams JACQUELINE Chun Neurosurgery [facility] Patient Touch 09/21/24 6:51 AM To find out which DIANE is on for the day please go to ON-Call Finder in [employer] or [employer] and use log in [employer] and search for [facility]surgery JACQUELINE Roth 09/21/24 1602 Images from the original note were not included. Pharmacokinetic Consult - Vancomycin Dosing Anupama Vasquez is a 54 y.o. female for whom pharmacy has been consulted for vancomycin dosing for bacteremia. Today is day 3 of vancomycin therapy. Relevant clinical data and objective history reviewed: Allergies: Patient has no known allergies. Results from last 3 days Lab Units 09/21/24 0230 09/20/24 0259 09/19/24 0446 09/19/24 0412 09/19/24 0026 CREATININE mg/dL 1.27* 2.60* -- 7.54* 9.65* BUN mg/dL 24* 38* -- 81* 91* WBC x10E9/L 12.2* 8.9 9.2 -- 10.3 HEMOGLOBIN g/dL 11.0* 11.0* 11.4* -- 11.5* HEMATOCRIT % 33.6* 33.5* 34.9* -- 34.9* MCV fL 83 82 82 -- 84 Temp Readings from Last 3 Encounters: 09/21/24 36.8 C (98.2 F) (Oral) 09/16/24 36 C (96.8 F) 09/01/24 36.5 C (97.7 F) (Oral) Renal Parameters: I/O last 3 completed shifts: In: 5010 [I.V.:3493.3; IV Piggyback:1516.8] Out: 4125 [Urine:4125] Calculated CrCl (): 48.1 Culture Data: Microbiology Results Procedure Component Value Units Date/Time Blood culture #2 [[id number]] Collected: 09/20/24 0733 Specimen: Blood, Venous Updated: 09/21/24 1151 CULTURE RESULTS NO GROWTH 1 DAY Narrative: Suboptimal volume of blood collected, Results may be affected. Blood culture #1 [[id number]] Collected: 09/20/24 0729 Specimen: Blood, Venous Updated: 09/20/24 0729 Blood culture [[id number]] (Abnormal) Collected: 09/19/24 0123 Specimen: Blood, Venous Updated: 09/20/24 1833 CULTURE RESULTS Culture in progress GRAM STAIN Gram positive cocci in clusters Narrative: Suboptimal volume of blood collected, Results may be affected. BLOOD CULTURE IDENTIFICATION PANEL [[id number]] (Abnormal) Collected: 09/19/24 0123 Specimen: Blood, Venous Updated: 09/19/24 2031 Staphylococcus epidermidis PCR Detected mecA/C gene PCR Detected (Methicillin Resistance) Blood culture [[id number]] Collected: 09/19/24 0026 Specimen: Blood, Venous Updated: 09/21/24 0101 CULTURE RESULTS NO GROWTH 2 DAYS Concurrent Antibiotics: Anti-infectives (From admission, onward) Start Dose/Rate Route Frequency Ordered Stop 09/19/242100 vancomycin (VANCOCIN) IVPB Dosed by Levels intravenous Dosed by Levels 09/19/242100 Recent Vancomycin Serum Concentrations: Results from last 7 days Lab Units 09/21/24 1152 09/20/24 1956 VANCOMYCIN ug/mL 16.0 10.0 Indication: bacteremia Goal Vancomycin Range: Trough 15-20 mcg/mL Assessment . Patient is currently ordered vancomycin dosed by levels. Today is day 3 of therapy. Renal function assessment: BRANDON resolving Random level this AM resulted at 16.0 mcg/mL (~ 14 hour level). BRANDON resolving, UOP excellent, creatinine downtrending. Patient-specific risk-factors for nephrotoxicity include: pre-existing renal impairment and concomitant nephrotoxic medications. Plan Will give vancomycin 1500 mg IV once The next vancomycin random concentration has been ordered for 09/220 Please see electronic record for orders Pharmacy Dosing Service to follow serum concentrations and adjust as needed based on the patient's clinical status. Thank you for consulting. Andrae Chisholm PharmD Images from the original note were not included. Nephrology Daily Progress Note IMPRESSION: Nonoliguric acute kidney injury in setting of urinary retention, renal function now improving creatinine down to 1.2 mg/dL. Hypernatremia due to free water deficit, on hypotonic fluids Right temporal mass measuring 4.1 cm with midline shift, neurosurgery following, on Decadron, neurosurgery planning on craniotomy and resection of the mass this Saturday Acute urinary retention, status post Alexis catheter placement, urology following PLAN: 1. Continue D2.5 2. Maintain sodium levels around 145-150 mEq per L 3. Renal panel daily 4. Strict I&Os INTERVAL HISTORY: Patient seen examined at bedside. Hemodynamically stable. On room air. 2.5 L of urine output documented over the last 24 hours. PROBLEM LIST: Acute kidney injury secondary to acute urine retention from September of 2024. Renal ultrasound revealed right kidney of 10.6 cm left kidney of 14.0 cm with right-sided kidney stone with mild hydronephrosis on the right and left side. From September of 2024 showing negative MAGI negative MPO and PR3 antibody, normal complements, negative anti-GBM, CPK was 18, urine dipstick revealed 100 mg/dL protein moderate blood fractional excretion of sodium was 5.2% and random urine protein to creatinine ratio was 1.6 grams/gram. SPEP pending. Acute urine retention Right temporal 4.1cm brain mass with [id number] 60 mm shift with surrounding edema from September of 2024 Multiple sclerosis Left carpal tunnel release Left shoulder arthroscopy VITAL SIGNS TREND: Vitals: 09/21/24 0900 09/21/24 1000 09/21/24 1100 09/21/24 1200 BP: 139/80 132/78 124/83 133/78 Pulse: 76 85 76 90 Resp: 19 20 20 22 Temp: 36.8 C (98.2 F) TempSrc: Oral SpO2: 95% 93% 93% 95% Weight: INTAKE/OUTPUT: Intake/Output Summary (Last 24 hours) at 09/21/2024 1256 Last data filed at 09/21/2024 1200 Gross per 24 hour Intake 2280.02 ml Output 2175 ml Net 105.02 ml I/O this shift: In: - Out: 600 [Urine:600] WEIGHT: Last 3 Weight Readings 09/19/24 0400 09/20/24 0200 09/21/24 0000 Weight: 119.4 kg (263 lb 3.7 oz) 120.3 kg (265 lb 3.4 oz) 118.5 kg (261 lb 3.9 oz) PHYSICAL EXAM: Blood pressure 133/78, pulse 90, temperature 36.8 C (98.2 F), temperature source Oral, resp. rate 22, weight 118.5 kg (261 lb 3.9 oz), SpO2 95%. Temp: [36.6 C (97.9 F)-37 C (98.6 F)] 36.8 C (98.2 F) Pulse: [76-111] 90 Resp: [16-23] 22 BP: (118-157)/(74-98) 133/78 SpO2: [93 %-98 %] 95 % O2 Device: None (Room air) O2 Flow Rate (L/min): [0 L/min] 0 L/min General appearance: Encephalopathic, response to painful stimuli, in no apparent distress. HEENT: Thick neck, no JVD, no lymphadenopathy. Heart exam: normal S1-S2 Lungs: clear to auscultation bilaterally Abdomen: Obese, soft, no tenderness, no guarding, positive bowel sounds Extremities: no edema Vascular: adequate pulses and no carotid bruits. Musculoskeletal: no joint tenderness or swelling. LABORATORY EVALUATION: Results from last 7 days Lab Units 09/21/24 0230 09/20/24195509/20/24 1114 09/20/24 0259 09/19/248 09/19/24 1223 09/19/24 0412 09/19/24 0026 SODIUM mmol/L 148* 147* 151* 154* 154* < > 159* 156* 151* POTASSIUM mmol/L 3.9 5.1* 4.0 4.0 4.3 < > 4.5 4.3 4.6 CHLORIDE mmol/L 114* 113* 117* 119* 119* < > 120* 119* 120* CO2 mmol/L 24 25 26 24 24 < > 22 22 14* ANION GAP mmol/L 10 9 8 11 11 < > 17* 15 17* BUN mg/dL 24* -- -- 38* -- -- 81* 91* CREATININE mg/dL 1.27* -- -- 2.60* -- -- 7.54* 9.65* CALCIUM mg/dL 9.2 -- -- 9.3 -- -- 9.2 9.3 MAGNESIUM mg/dL 1.8 -- -- 1.8 -- -- 2.4 -- PHOSPHORUS mg/dL 2.7 -- -- 3.5 -- -- 5.8* -- CALCIUM, IONIZED mg/dL 5.1 -- -- 5.2 -- -- -- -- < > = values in this interval not displayed. Results from last 7 days Lab Units 09/19/24 0137 09/19/24 0123 09/19/24 0026 PROTEIN TOTAL g/dL -- -- 6.8 ALBUMIN g/dL -- -- 3.4 AST U/L -- -- 8 ALT U/L -- -- 4 BILIRUBIN SORIN Negative -- -- BILIRUBIN, TOTAL mg/dL -- -- 0.4 BILIRUBIN URINE -- Negative -- ALK PHOS U/L -- -- 73 Results from last 7 days Lab Units 09/21/24 02309/20/24 02509/19/24 0446 09/19/24 0026 WBC x10E9/L 12.2* 8.9 9.2 10.3 HEMOGLOBIN g/dL 11.0* 11.0* 11.4* 11.5* HEMATOCRIT % 33.6* 33.5* 34.9* 34.9* PLATELETS X10E9/L 183 190 189 199 Lab Results Component Value Date IRON 56 09/19/2024 TIBC 309 09/19/2024 FERRITIN 130 09/19/2024 IRONSAT 18 09/19/2024 Results from last 7 days Lab Units 09/21/24 0230 09/20/24 0259 09/19/24 0412 09/19/24 0407 09/19/24 0026 BEDSIDE GLUCOSE mg/dL -- -- -- 110* -- GLUCOSE mg/dL 127* 149* 107* -- 103* Results from last 7 days Lab Units 09/19/24 0412 09/19/24 0026 CPK ISOENZYMES U/L 18* 18* CURRENT MEDICATIONS: dexAMETHasone, 4 mg, intravenous, Q6H FELTON famotidine, 20 mg, intravenous, Q48H heparin (porcine), 5,000 Units, subcutaneous, Q8H FELTON levETIRAcetam, 500 mg, intravenous, Q12H metoprolol tartrate, 12.5 mg, nasogastric, BID mirtazapine, 15 mg, nasogastric, Nightly sennosides-docusate sodium, 2 tablet, oral, Nightly vancomycin, , intravenous, Dosed by Mikayla OKEEFE D.O. For questions please call: Answering Service at [phone] Or Office at [phone] This note was created with the assistance of a speech-recognition program. Although the intention is to generate a document that actually reflects the content of the visit, no guarantees can be provided that every mistake has been identified and corrected by editing. Images from the original note were not included. Jr Nadia., Jamal Mcgee., Jr. Wesly, Jamal Carreno., Madhav Quinones M.D., Eliazar Lockwood M.D., Jose Carlos Buenrostro M.D., Laura Gunn M.D., Jose Carlos Turpin M.D., Steffanie Shrestha M.D. Hospital day: 2 Chief Complaint: Large volume urinary retention Subjective: Awake and alert. Tolerating Alexis. Complaining of nasogastric tube. Weight: 118.5 kg (261 lb 3.9 oz) Patient Vitals for the past 24 hrs: BP Temp Temp src Pulse Resp SpO2 Weight 09/21/24 0600 139/78 -- -- 91 20 94 % -- 09/21/24 0500 139/86 -- -- 81 19 95 % -- 09/21/24 0400 137/90 -- -- 94 16 94 % -- 09/21/24 0330 (!) 141/98 36.9 C (98.4 F) Oral 111 18 96 % -- 09/21/24 0300 (!) 141/98 -- -- 99 21 95 % -- 09/21/24 0200 118/74 -- -- 102 19 95 % -- 09/21/24 0100 128/81 -- -- 97 19 96 % -- 09/21/24 0000 127/84 -- -- 97 19 95 % 118.5 kg (261 lb 3.9 oz) 09/20/24 2330 131/79 36.9 C (98.4 F) Oral 89 19 96 % -- 09/20/24 2300 131/79 -- -- 99 20 95 % -- 09/20/24 2200 152/89 -- -- 91 20 -- -- 09/20/24 2120 (!) 150/98 -- -- 83 20 97 % -- 09/20/24 2100 (!) 152/93 -- -- 81 23 97 % -- 09/20/24 203 149/87 -- -- 77 18 97 % -- 09/20/24 2000 (!) 157/93 -- -- 77 17 98 % -- 09/20/24 1930 (!) 156/97 36.8 C (98.2 F) Oral 82 17 97 % -- 09/20/24 1900 (!) 156/97 -- -- 94 18 96 % -- 09/20/24 1800 132/74 -- -- 80 22 98 % -- 09/20/24 1700 129/77 -- -- 86 21 97 % -- 09/20/24 1600 135/78 36.6 C (97.9 F) Oral 81 20 -- -- 09/20/24 1220 138/82 -- -- 68 20 99 % -- 09/20/24 1200 (!) 147/92 36.8 C (98.3 F) Oral 85 19 100 % -- 09/20/24 1100 138/80 -- -- 89 16 100 % -- 09/20/24 1000 133/85 -- -- 80 20 100 % -- 09/20/24 0900 142/85 -- -- 79 20 98 % -- Intake/Output Summary (Last 24 hours) at 09/21/2024 0819 Last data filed at 09/21/2024 0619 Gross per 24 hour Intake 2280.02 ml Output 2325 ml Net -44.98 ml Results from last 7 days Lab Units 09/21/24 0230 09/20/24 1956 09/20/24 1114 09/20/24 0259 09/19/24 1223 09/19/24 0412 POTASSIUM mmol/L 3.9 5.1* 4.0 4.0 < > 4.5 4.3 CHLORIDE mmol/L 114* 113* 117* 119* < > 120* 119* CO2 mmol/L 24 25 26 24 < > 22 22 BUN mg/dL 24* -- -- 38* -- 81* CREATININE mg/dL 1.27* -- -- 2.60* -- 7.54* GLUCOSE mg/dL 127* -- -- 149* -- 107* CALCIUM mg/dL 9.2 -- -- 9.3 -- 9.2 < > = values in this interval not displayed. Results from last 7 days Lab Units 09/21/24 0230 09/20/24 0259 09/19/24 0446 WBC x10E9/L 12.2* 8.9 9.2 HEMOGLOBIN g/dL 11.0* 11.0* 11.4* HEMATOCRIT % 33.6* 33.5* 34.9* PLATELETS X10E9/L 183 190 189 Lab Results Component Value Date SPECIFICGRA 1.020 09/19/2024 LEUKOCYTE Negative 09/19/2024 NITRITEN Negative 09/19/2024 PHNUR 5.5 09/19/2024 PROTEINNUR 100 mg/dL (A) 09/19/2024 GLU 127 (H) 09/21/2024 KETONESNUR Negative 09/19/2024 UROBILINOGEN 0.2 E.U./dL 09/19/2024 BLOODHGBNU Large (A) 09/19/2024 Additional Lab/culture results: Blood cultures with Gram-positive cocci in clusters Physical Exam: General: No acute distress CV: Regular rate and rhythm Respiratory: Nonlabored Abdomen: Nontender, nondistended : Alexis catheter in place draining clear yellow urine Interval Imaging Findings: CT ABDOMEN AND PELVIS WITHOUT IV CONTRAST HISTORY: Renal stones, obstruction COMPARISON STUDY: Ultrasound 09/19/2024. TECHNIQUE: CT scan of the abdomen and pelvis performed without IV or PO contrast. Coronal and sagittal reformats generated and reviewed. FINDINGS: Solid visceral organs limited in evaluation secondary to lack of IV contrast. LOWER THORAX: Lower lung atelectasis. HEPATOBILIARY: Scattered hepatic calcifications, no suspicious hepatic mass. No biliary ductal dilatation. Gallbladder is normal. SPLEEN: Unremarkable. PANCREAS: Mild splenomegaly 15 cm craniocaudal dimension ADRENALS: No adrenal nodules. KIDNEYS/URETERS: No urinary tract calculi. There is mild pelvocaliectasis both kidneys, no significant dilatation of either ureter. No visible distal obstructing process. No suspicious renal mass. GI TRACT: No bowel obstruction. Appendix is normal. Colonic diverticulosis without inflammatory change. PELVIC ORGANS/BLADDER: Containing Alexis catheter, bladder wall thickening may be present. No bladder stone. PERITONEUM/RETROPERITONEUM: No free air or fluid. LYMPH NODES: No enlarged lymph nodes. VESSELS: Atherosclerotic calcifications without abdominal aortic aneurysm. BONES AND SOFT TISSUES: No suspicious osseous lesion. IMPRESSION: 1. No urinary tract calculi. There is mild pelvocaliectasis both kidneys, no significant dilatation of either ureter. No visible distal obstructing process. 2. Splenomegaly. 3. Bladder wall thickening, please correlate with urinalysis. Impression: High volume urinary retention of 1.5 L associated with BRANDON and bilateral mild hydro ureteral nephrosis. Bladder wall thickening on CT Plan: Maintain Alexis for least 1 week Creatinine responding well to catheter drainage CT without evidence of kidney stones or obstructive process. MARCELLE CHOUDHARY 8:19 AM 09/21/2024 MARCELLE Choudhary 09/21/24 0822 I, ENID EATON JR, MD, personally performed the face to face diagnostic evaluation on this patient. My findings are as follows: Patient a little more conversational today.. Creatinine continues improving. I provided independent interpretation of films and reports of abdominal pelvic CT 09/20/2024 demonstrating residual mild bilateral hydroureteronephrosis improving with the catheter as well as demonstrating there are no urinary stones thankfully.. Impressions: 1. Right temporal brain mass with shift with very high volume urinary retention 1.5 L with the acute kidney injury creatinine 15.68 improved with Alexis catheter with mild bilateral hydronephrosis ultrasound 09/19/2024 2. By radiology report concern for 4 mm nonobstructing right renal stone retroperitoneal ultrasound 09/19/2024; no stone definitively CT 09/20/2024 Recommendations: 1. As above 2. check stone protocol CT to rule out stone. 3. Pending possible OR Saturday Neurosurgery. We will follow with you and plan to return to see the patient Saturday. Let us know if you need further help in the interim otherwise.. Thank you very much. I appreciate being asked to help with this patient's care. Enid Eaton Jr., M.D. [facility] [phone] Images from the original note were not included. Pharmacokinetic Consult - Vancomycin Dosing Anupama Vasquez is a 54 y.o. female for whom pharmacy has been consulted for vancomycin dosing for bacteremia. Today is day 2 of vancomycin therapy. Relevant clinical data and objective history reviewed: Allergies: Patient has no known allergies. Results from last 3 days Lab Units 09/20/24 0259 09/19/24 0446 09/19/24 0412 09/19/24 0026 CREATININE mg/dL 2.60* -- 7.54* 9.65* BUN mg/dL 38* -- 81* 91* WBC x10E9/L 8.9 9.2 -- 10.3 HEMOGLOBIN g/dL 11.0* 11.4* -- 11.5* HEMATOCRIT % 33.5* 34.9* -- 34.9* MCV fL 82 82 -- 84 Temp Readings from Last 3 Encounters: 09/20/24 36.8 C (98.2 F) (Oral) 09/16/24 36 C (96.8 F) 09/01/24 36.5 C (97.7 F) (Oral) Renal Parameters: I/O last 3 completed shifts: In: 2730 [I.V.:1949; IV Piggyback:781] Out: 5475 [Urine:5475] Calculated CrCl (TBW): 23.5 mL/min Culture Data: Microbiology Results Procedure Component Value Units Date/Time Blood culture #2 [[id number]] Collected: 09/20/24732 Specimen: Blood, Venous Updated: 09/20/24732 Blood culture #1 [[id number]] Collected: 09/20/24728 Specimen: Blood, Venous Updated: 09/20/24728 Blood culture [[id number]] (Abnormal) Collected: 09/19/24122 Specimen: Blood, Venous Updated: 09/20/24 183 CULTURE RESULTS Culture in progress GRAM STAIN Gram positive cocci in clusters Narrative: Suboptimal volume of blood collected, Results may be affected. BLOOD CULTURE IDENTIFICATION PANEL [[id number]] (Abnormal) Collected: 09/19/24 012 Specimen: Blood, Venous Updated: 09/19/242030 Staphylococcus epidermidis PCR Detected mecA/C gene PCR Detected (Methicillin Resistance) Blood culture [[id number]] Collected: 09/19/24 0026 Specimen: Blood, Venous Updated: 09/20/24 1301 CULTURE RESULTS NO GROWTH AT 36 HOURS Concurrent Antibiotics: Anti-infectives (From admission, onward) Start Dose/Rate Route Frequency Ordered Stop 09/20/242129 vancomycin (VANCOCIN) IVPB 1500 mg in 500 mL sodium chloride 0.9% (CMPD premix) 1,500 mg 353 mL/hr over 90 Minutes intravenous Once 09/20/24212009/19/242100 vancomycin (VANCOCIN) IVPB Dosed by Levels intravenous Dosed by Levels 09/19/242100 Recent Vancomycin Serum Concentrations: Results from last 7 days Lab Units 09/20/241955 VANCOMYCIN ug/mL 10.0 Indication: bacteremia Goal Vancomycin Range: Trough 15-20 mcg/mL Assessment . Patient is currently ordered vancomycin dosed by levels. Today is day 2 of therapy. Renal function assessment: Acute Renal Failure The most recent vancomycin random level was 10.0 mcg/mL collected at 1955 on 09/20. This is a 22.5 hour level on the 2nd day of therapy Patient-specific risk-factors for nephrotoxicity include: pre-existing renal impairment and concomitant nephrotoxic medications. Plan Will initiate vancomycin loading dose of 1500 mg IV x 1 dose, followed by vancomycin dose by levels The next vancomycin random concentration will be ordered for 1000 on 09/21, unless clinically indicated sooner Please see electronic record for orders Pharmacy Dosing Service to follow serum concentrations and adjust as needed based on the patient's clinical status. Thank you for consulting. Mynor Vargas RPH BRIEF NEUROSURGERY NOTE: Patient was off the floor when I went to assess her. PLAN: - MR Imaging independently reviewed by Dr. Espinal. Plan for OR Saturday for craniotomy for tumor excision. Will obtain consent from family prior to. - Continue decadron 4mg q6h for cerebral edema - Continue Keppra 500 mg BID for seizure ppx Neurosurgery will continue to follow. BELEM Edward- [facility] Please contact via [employer] first then can utilize Patient touch/VoceraEdge if needed 09/20/24 2:22 PM To find out which DIANE is on for the day please go to [employer] and use log in Parking Panda and search for [facility] (DIANE and Phone Number is listed) JACQUELINE Vazquez 09/20/24 1426 Images from the original note were not included. Urology - Progress Note Chief Complaint/Reason for Consult: High volume urinary retention nephrolithiasis Subjective: No acute events overnight. Patient denies F/C/N/V/CP/SOA. Afebrile and hemodynamically stable Patient is still altered Creatinine downtrending nicely 2.60 from 7.5 Objective: Weight: 120.3 kg (265 lb 3.4 oz) Temp: [36.8 C (98.2 F)-37.4 C (99.3 F)] 36.9 C (98.5 F) Pulse: [81-107] 84 Resp: [18-25] 19 BP: (112-150)/(62-101) 130/84 SpO2: [77 %-100 %] 100 % O2 Device: Nasal cannula O2 Flow Rate (L/min): [2 L/min] 2 L/min Intake/Output Summary (Last 24 hours) at 09/20/2024 0929 Last data filed at 09/20/2024 0750 Gross per 24 hour Intake 2730.02 ml Output 3600 ml Net -869.98 ml Results from last 7 days Lab Units 09/20/24 0259 09/19/24 1958 09/19/24 1223 09/19/24 0412 09/19/24 0407 09/19/24 0026 POTASSIUM mmol/L 4.0 4.3 4.5 4.5 4.3 -- 4.6 CHLORIDE mmol/L 119* 119* 118* 120* 119* -- 120* CO2 mmol/L 24 24 21* 22 22 -- 14* BUN mg/dL 38* -- -- 81* -- 91* CREATININE mg/dL 2.60* -- -- 7.54* -- 9.65* BEDSIDE GLUCOSE -- -- -- -- < > -- GLUCOSE mg/dL 149* -- -- 107* -- 103* CALCIUM mg/dL 9.3 -- -- 9.2 -- 9.3 < > = values in this interval not displayed. Results from last 7 days Lab Units 09/20/24 02509/19/24 0446 09/19/24 0026 WBC x10E9/L 8.9 9.2 10.3 HEMOGLOBIN g/dL 11.0* 11.4* 11.5* HEMATOCRIT % 33.5* 34.9* 34.9* PLATELETS X10E9/L 190 189 199 Lab Results Component Value Date SPECIFICGRA 1.020 09/19/2024 LEUKOCYTE Negative 09/19/2024 NITRITEN Negative 09/19/2024 PHNUR 5.5 09/19/2024 PROTEINNUR 100 mg/dL (A) 09/19/2024 GLU 149 (H) 09/20/2024 KETONESNUR Negative 09/19/2024 UROBILINOGEN 0.2 E.U./dL 09/19/2024 BLOODHGBNU Large (A) 09/19/2024 Additional Lab/culture results: Microbiology Results Procedure Component Value Units Date/Time Blood culture #2 [[id number]] Collected: 09/20/24732 Specimen: Blood, Venous Updated: 09/20/24732 Blood culture #1 [[id number]] Collected: 09/20/24728 Specimen: Blood, Venous Updated: 09/20/24728 Blood culture [[id number]] (Abnormal) Collected: 09/19/24122 Specimen: Blood, Venous Updated: 09/19/242034 CULTURE RESULTS NO GROWTH <24 HRS GRAM STAIN Gram positive cocci in clusters Narrative: Suboptimal volume of blood collected, Results may be affected. BLOOD CULTURE IDENTIFICATION PANEL [[id number]] (Abnormal) Collected: 09/19/24122 Specimen: Blood, Venous Updated: 09/19/242030 Staphylococcus epidermidis PCR Detected mecA/C gene PCR Detected (Methicillin Resistance) Blood culture [[id number]] Collected: 09/19/24 0026 Specimen: Blood, Venous Updated: 09/20/24100 CULTURE RESULTS NO GROWTH 1 DAY Physical Exam Physical Exam Constitutional: General: She is not in acute distress. Appearance: She is obese. Cardiovascular: Rate and Rhythm: Normal rate. Pulses: Normal pulses. Pulmonary: Effort: Pulmonary effort is normal. Abdominal: General: Abdomen is flat. There is no distension. Palpations: Abdomen is soft. Tenderness: There is no abdominal tenderness. There is no right CVA tenderness or left CVA tenderness. Interval Imaging Findings: MR brain synaptive protocol Result Date: 09/20/2024 History: Right temporal lobe mass shown on brain CT COMPARISON: Brain CT from September 18 outside facility [facility] PROCEDURE: Multiplanar multisequence images performed through the brain without contrast utilizing synaptive protocol for surgical planning. FINDINGS: Right temporal mass midline shift to the opposite side measuring 14 mm. Extensive surrounding vasogenic edema and mass effect partially compressing the right lateral ventricle and completely compressing the third ventricle with dilatation of the left lateral ventricle. The lesion shows heterogeneous intense enhancement and measures 44.4 mm superior to inferior by 46.4 mm anterior to posterior and 38.7 mm medial to lateral Extensive susceptibility artifacts within the process suggesting some calcification or hemorrhage No extra-axial fluid collections. No MR evidence for an infarct. Diffusion tensor imaging utilized for delineating the associated white matter tracts. IMPRESSION: Right temporal lobe lesion detailed above for surgical planning. 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 Metastasis can also present in this fashion. Finalized by Juan Antonio Lindquist MD on 09/20/2024 7:17 AM Assessment ( Problem List): Anupama Vasquez is a 54 y.o. Unknown White or female who presents with: Active Problem List High volume urinary retention of 1.5 L associated with BRANDON and bilateral mild hydro ureteral nephrosis. Right 4 mm nephrolithiasis found on renal ultrasound Plan: Maintain Alexis catheter for at least 1 week given high volume retention Blood cultures with staph epi We will obtain CT stone protocol to assess for nephrolithiasis found ultrasound Continue to monitor creatinine Please notify urologic service the day prior to discharge for Alexis catheter recommendations and void trial instructions HIRAM JONES MD Urology Resident, PGY-2 9:29 AM 09/20/24 Cosigned by Enid Eaton Jr., MD at 09/20/2024 10:36 AM EDT Associated attestation - Enid Eaton Jr., MD - 09/20/2024 10:36 AM EDT Attending Attestation: I saw the patient. I participated and was physically present during the critical/more portions of the service. I was directly involved in the management and treatment plan of the patient. I reviewed the resident's note. Additional Notes/Findings: See my prior note. Patient grunting in response to attempts to take history. We will follow with you. Enid Eaton Jr., M.D. [facility] [phone] Images from the original note were not included. Nephrology Daily Progress Note INTERVAL HISTORY: Continues to be confused and encephalopathic. Mumbling incoherently. On oxygen via nasal cannula at 2 liters/minute. VITAL SIGNS TREND: Vitals: 09/20/24 0400 09/20/24 0500 09/20/24 0600 09/20/24 0700 BP: 132/83 138/83 120/79 130/84 Pulse: 92 81 89 84 Resp: 19 18 19 19 Temp: 36.9 C (98.5 F) TempSrc: Oral SpO2: 97% 99% 97% 100% Weight: INTAKE/OUTPUT: Intake/Output Summary (Last 24 hours) at 09/20/2024 0751 Last data filed at 09/20/2024 0750 Gross per 24 hour Intake 2730.02 ml Output 3950 ml Net -1219.98 ml I/O this shift: In: - Out: 250 [Urine:250] WEIGHT: Last 3 Weight Readings 09/19/24 0330 09/19/24 0400 09/20/24 0200 Weight: 122.4 kg (269 lb 13.5 oz) 119.4 kg (263 lb 3.7 oz) 120.3 kg (265 lb 3.4 oz) PHYSICAL EXAM: Blood pressure 130/84, pulse 84, temperature 36.9 C (98.5 F), temperature source Oral, resp. rate 19, weight 120.3 kg (265 lb 3.4 oz), SpO2 100%. Temp: [36.8 C (98.2 F)-37.4 C (99.3 F)] 36.9 C (98.5 F) Pulse: [81-107] 84 Resp: [18-25] 19 BP: (112-150)/(62-101) 130/84 SpO2: [77 %-100 %] 100 % O2 Device: Nasal cannula O2 Flow Rate (L/min): [2 L/min] 2 L/min General appearance: Encephalopathic, response to painful stimuli, in no apparent distress. HEENT: Thick neck, no JVD, no lymphadenopathy. Heart exam: normal S1-S2 Lungs: clear to auscultation bilaterally Abdomen: Obese, soft, no tenderness, no guarding, positive bowel sounds Extremities: no edema Vascular: adequate pulses and no carotid bruits. Musculoskeletal: no joint tenderness or swelling. LABORATORY EVALUATION: Results from last 7 days Lab Units 09/20/24 0259 09/19/248 09/19/24 1223 09/19/24 0412 09/19/24 0026 SODIUM mmol/L 154* 154* 152* 159* 156* 151* POTASSIUM mmol/L 4.0 4.3 4.5 4.5 4.3 4.6 CHLORIDE mmol/L 119* 119* 118* 120* 119* 120* CO2 mmol/L 24 24 21* 22 22 14* ANION GAP mmol/L 11 11 13 17* 15 17* BUN mg/dL 38* -- -- 81* 91* CREATININE mg/dL 2.60* -- -- 7.54* 9.65* CALCIUM mg/dL 9.3 -- -- 9.2 9.3 MAGNESIUM mg/dL 1.8 -- -- 2.4 -- PHOSPHORUS mg/dL 3.5 -- -- 5.8* -- CALCIUM, IONIZED mg/dL 5.2 -- -- -- -- Results from last 7 days Lab Units 09/19/24 0137 09/19/24 0123 09/19/24 0026 PROTEIN TOTAL g/dL -- -- 6.8 ALBUMIN g/dL -- -- 3.4 AST U/L -- -- 8 ALT U/L -- -- 4 BILIRUBIN SORIN Negative -- -- BILIRUBIN, TOTAL mg/dL -- -- 0.4 BILIRUBIN URINE -- Negative -- ALK PHOS U/L -- -- 73 Results from last 7 days Lab Units 09/20/24 0259 09/19/24 0446 09/19/24 0026 WBC x10E9/L 8.9 9.2 10.3 HEMOGLOBIN g/dL 11.0* 11.4* 11.5* HEMATOCRIT % 33.5* 34.9* 34.9* PLATELETS X10E9/L 190 189 199 Lab Results Component Value Date IRON 56 09/19/2024 TIBC 309 09/19/2024 FERRITIN 130 09/19/2024 IRONSAT 18 09/19/2024 Results from last 7 days Lab Units 09/20/24 0259 09/19/24 0412 09/19/24 0407 09/19/24 0026 BEDSIDE GLUCOSE mg/dL -- -- 110* -- GLUCOSE mg/dL 149* 107* -- 103* Results from last 7 days Lab Units 09/19/24 04109/19/24 0026 CPK ISOENZYMES U/L 18* 18* CURRENT MEDICATIONS: dexAMETHasone, 4 mg, intravenous, Q6H FELTON famotidine, 20 mg, intravenous, Q48H heparin (porcine), 5,000 Units, subcutaneous, Q8H FELTON levETIRAcetam, 500 mg, intravenous, Q12H sennosides-docusate sodium, 2 tablet, oral, Nightly vancomycin, , intravenous, Dosed by Levels PROBLEM LIST: Acute kidney injury secondary to acute urine retention from September of 2024. Renal ultrasound revealed right kidney of 10.6 cm left kidney of 14.0 cm with right-sided kidney stone with mild hydronephrosis on the right and left side. From September of 2024 MAGI anti MPO anti PR3 and anti-GBM are pending, serum protein electrophoresis is pending, C3 was 196 and C4 was 42, CPK was 18, urine dipstick revealed 100 mg/dL protein moderate blood fractional excretion of sodium was 5.2% and random urine protein to creatinine ratio was 1.6 grams/gram. Acute urine retention Right temporal 4.1cm brain mass with [id number] 60 mm shift with surrounding edema from September of 2024 Multiple sclerosis Left carpal tunnel release Left shoulder arthroscopy IMPRESSION: 1. Acute kidney injury secondary to acute urine retention. Creatinine continues to improve. 2. Acute urine retention: Status post Alexis catheter. Urology was consulted. 3. Right temporal mass measuring 4.1 cm with a midline shift of about 6 cm: Neurosurgery is following. On Decadron for brain edema. Maintaining high serum osmolality with a goal serum sodium of 145-150 per neurosurgery. Plans for craniotomy and resection of mass on Saturday. 4. Hypernatremia: Per neurosurgery, the goal is serum sodium of 145-150. Hypotonic fluids adjusted accordingly. PLAN: 1. Continue to follow electrolytes every 8 hours. 2. Continue to titrate D2.5 W with a goal serum sodium of 145-150. Discussed with her nurse at the bedside No objection to transfer out of ICU from Nephrology perspective Miriam Church M.D. For questions please call: Answering Service at [phone] Or Office at [phone] This note was created with the assistance of a speech-recognition program. Although the intention is to generate a document that actually reflects the content of the visit, no guarantees can be provided that every mistake has been identified and corrected by editing. Images from the original note were not included. [facility] Progress Note Name: Anupama Vasquez Age: 54 y.o. Date: 09/20/24 Length of Stay 1 day(s) ASSESSMENT Right temporal brain mass, 4.1 cm with midline shift and edema Metabolic encephalopathy secondary to above Acute kidney injury, suspect post renal, improving Acute urinary retention Hypernatremia Multiple sclerosis PLAN Mentation improving but still drowsy with left sided weakness. Blood cultures 1/2 positive staph epi, methicillin-resistant. Was started on vancomycin. Repeat BC x2. Could be contaminant Neurosurgery following. MRI brain demonstrates right temporal mass with 14 mm midline shift and extensive surrounding vasogenic edema with mass effect compressing the right lateral ventricle and 3rd ventricle. Plan for craniotomy with tumor excision on Saturday. Continue Decadron and Keppra. Sodium goal 145-150 Nephrology following. Creatinine improved to 2.6 (7.54). Sodium 154, Q8 hour elyte panels. On D2.5 at 75 mL/hour. Renal ultrasound with right nephrolithiasis with mild right hydronephrosis and mild left hydronephrosis Urology following. Maintain Alexis catheter. DC CVL Nutrition: NPO due to mental status. Place flexiflo and start tube feeds Bowel Regimen: Senokot S Activity: As tolerated DVT prophylaxis: Heparin subQ GI prophylaxis: Pepcid Glycemic control: Replace electrolytes per protocol LINES/DRAINS/AIRWAYS: Right IJ CVL PIV Alexis CODE STATUS: Full code DISPOSITION: Okay for transfer out of ICU *Most recent imaging / lab studies independently reviewed. *Please also note additional orders *Plan of care discussed with Dr.case Steffanie Lozano APRN [facility] Acute Care Nurse Practitioner [facility] Please feel free to contact me via Patient Touch. Subjective No acute events reported overnight. MRI brain completed which shows right temporal mass, 14 mm with vasogenic edema and mass effect compressing the right lateral and 3rd ventricle. 1/2 blood cultures positive strep epi, methicillin-resistant was started on vancomycin. Creatinine trending down post Alexis catheter and hypotonic fluids. Patient seen and examined at bedside. Patient awakens to voice but falls back to sleep quickly. She has left-sided weakness. Vital Signs Temp: [36.8 C (98.2 F)-37.4 C (99.3 F)] 36.8 C (98.2 F) Pulse: [81-107] 89 Resp: [18-25] 19 BP: (112-150)/(62-101) 120/79 SpO2: [77 %-99 %] 97 % O2 Device: Nasal cannula O2 Flow Rate (L/min): [2 L/min] 2 L/min O2 Device: Nasal cannula Physical Exam HENT Head Normocephalic and atraumatic. Eyes: Pupils are equal, round, and reactive to light. 5 mm Cardiovascular: Normal rate and regular rhythm. Pulmonary/Chest: Effort normal and breath sounds normal. Abdominal: Soft. Neurological Drowsy. Follows some commands. Left-sided weakness. Right eye closed preference. Skin: Skin is warm and dry. I/O last 3 completed shifts: In: 216.5 [I.V.:216.5] Out: 4925 [Urine:4925] Recent Results (from the past 24 hours) Electrolyte panel Collection Time: 09/19/24 12:23 PM Result Value Ref Range SODIUM 152 (H) 134 - 146 mmol/L POTASSIUM 4.5 3.5 - 5.0 mmol/L CHLORIDE 118 (H) 98 - 109 mmol/L CARBON DIOXIDE 21 (L) 22 - 32 mmol/L ANION GAP 13 5 - 15 mmol/L Electrolyte panel Collection Time: 09/19/24 7:58 PM Result Value Ref Range SODIUM 154 (H) 134 - 146 mmol/L POTASSIUM 4.3 3.5 - 5.0 mmol/L CHLORIDE 119 (H) 98 - 109 mmol/L CARBON DIOXIDE 24 22 - 32 mmol/L ANION GAP 11 5 - 15 mmol/L Ionized calcium Collection Time: 09/20/24 2:59 AM Result Value Ref Range IONIZED CALCIUM - ICAN 5.2 4.5 - 5.3 mg/dL Basic Metabolic Panel Collection Time: 09/20/24 2:59 AM Result Value Ref Range SODIUM 154 (H) 134 - 146 mmol/L POTASSIUM 4.0 3.5 - 5.0 mmol/L CHLORIDE 119 (H) 98 - 109 mmol/L CARBON DIOXIDE 24 22 - 32 mmol/L ANION GAP 11 5 - 15 mmol/L BLOOD UREA NITROGEN 38 (H) 5 - 23 mg/dL CREATININE 2.60 (H) 0.40 - 1.00 mg/dL GLUCOSE 149 (H) 65 - 99 mg/dL CALCIUM 9.3 8.5 - 10.5 mg/dL EGFR Non-Race Dependent 21 (L) >=60 ml/min/1.73sq.m Magnesium Collection Time: 09/20/24 2:59 AM Result Value Ref Range MAGNESIUM 1.8 1.8 - 2.6 mg/dL Phosphorus Collection Time: 09/20/24 2:59 AM Result Value Ref Range PHOSPHORUS 3.5 2.4 - 4.9 mg/dL CBC auto differential Collection Time: 09/20/24 2:59 AM Result Value Ref Range WBC 8.9 4 - 11 x10E9/L RBC Count 4.08 3.8 - 5.2 X10E12/L Hemoglobin 11.0 (L) 11.7 - 15.5 g/dL Hematocrit 33.5 (L) 35 - 47 % MCV 82 80 - 100 fL MCH 26.9 (L) 27 - 34 pg MCHC 32.8 32 - 36 g/dL RDW 15.6 (H) 11.5 - 15 % Platelet Count 190 150 - 450 X10E9/L MPV 9.0 7 - 12 fL Neutrophils Relative 89.6 % Lymphocytes Relative 5.6 % Monocytes Relative 4.3 % Eosinophils Relative 0.0 % Basophils Relative 0.5 % Neutrophils Absolute (A) 8.0 10*3/uL Lymphocytes Absolute 0.5 10*3/uL Monocytes Absolute 0.4 10*3/uL Eosinophils Absolute 0.0 10*3/uL Basophils Absolute 0.0 10*3/uL Differential Type AUTOMATED DIFFERENTIAL Glucose Results from last 7 days Lab Units 09/20/24 0259 09/19/24 0412 09/19/24 0407 09/19/24 0026 BEDSIDE GLUCOSE mg/dL -- -- 110* -- GLUCOSE mg/dL 149* 107* -- 103* Microbiology Results Procedure Component Value Units Date/Time Blood culture [[id number]] (Abnormal) Collected: 09/19/24122 Specimen: Blood, Venous Updated: 09/19/242034 CULTURE RESULTS NO GROWTH <24 HRS GRAM STAIN Gram positive cocci in clusters Narrative: Suboptimal volume of blood collected, Results may be affected. BLOOD CULTURE IDENTIFICATION PANEL [[id number]] (Abnormal) Collected: 09/19/24122 Specimen: Blood, Venous Updated: 09/19/242030 Staphylococcus epidermidis PCR Detected mecA/C gene PCR Detected (Methicillin Resistance) Blood culture [[id number]] Collected: 09/19/24 002 Specimen: Blood, Venous Updated: 09/20/24100 CULTURE RESULTS NO GROWTH 1 DAY Ventilator Invasive Hemodynamic [place] I/O last 3 completed shifts: In: 216.5 [I.V.:216.5] Out: 4925 [Urine:4925] I/O this shift: In: 2730 [I.V.:1949; IV Piggyback:781] Out: 1550 [Urine:1550] dexAMETHasone, 4 mg, intravenous, Q6H FELTON famotidine, 20 mg, intravenous, Q48H heparin (porcine), 5,000 Units, subcutaneous, Q8H FELTON levETIRAcetam, 500 mg, intravenous, Q12H sennosides-docusate sodium, 2 tablet, oral, Nightly vancomycin, , intravenous, Dosed by Levels dextrose 2.5 % in water, 1,000 mL infusion, 50-150 mL/hr, Last Rate: 75 mL/hr (09/20/24 0558) JACQUELINE Hughes 09/20/24 09 Cosigned by Mynor Watkins MD at 09/20/2024 9:58 AM EDT Images from the original note were not included. Pharmacokinetic Consult - Vancomycin Dosing Anupama Vasquez is a 54 y.o. female for whom pharmacy has been consulted for vancomycin dosing for bacteremia. Today is day 1 of vancomycin therapy. Relevant clinical data and objective history reviewed: Allergies: Patient has no known allergies. Results from last 3 days Lab Units 09/19/24 0446 09/19/24 0412 09/19/24 0026 CREATININE mg/dL -- 7.54* 9.65* BUN mg/dL -- 81* 91* WBC x10E9/L 9.2 -- 10.3 HEMOGLOBIN g/dL 11.4* -- 11.5* HEMATOCRIT % 34.9* -- 34.9* MCV fL 82 -- 84 Temp Readings from Last 3 Encounters: 09/19/24 37.4 C (99.3 F) (Axillary) 09/16/24 36 C (96.8 F) 09/01/24 36.5 C (97.7 F) (Oral) Renal Parameters: I/O last 3 completed shifts: In: 216.5 [I.V.:216.5] Out: 4925 [Urine:4925] Calculated CrCl (IBW): 8.1 ml/min Culture Data: Microbiology Results Procedure Component Value Units Date/Time Blood culture [[id number]] (Abnormal) Collected: 09/19/24122 Specimen: Blood, Venous Updated: 09/19/242034 CULTURE RESULTS NO GROWTH <24 HRS GRAM STAIN Gram positive cocci in clusters Narrative: Suboptimal volume of blood collected, Results may be affected. BLOOD CULTURE IDENTIFICATION PANEL [[id number]] (Abnormal) Collected: 09/19/24122 Specimen: Blood, Venous Updated: 09/19/242030 Staphylococcus epidermidis PCR Detected mecA/C gene PCR Detected (Methicillin Resistance) Blood culture [[id number]] Collected: 09/19/24 0026 Specimen: Blood, Venous Updated: 09/19/24 130 CULTURE RESULTS NO GROWTH <24 HRS Concurrent Antibiotics: Anti-infectives (From admission, onward) Start Dose/Rate Route Frequency Ordered Stop 09/19/242114 vancomycin (VANCOCIN) IVPB 2000 mg/500 mL in 0.9% sodium chloride (premix) 20 mg/kg 119.4 kg 250 mL/hr over 120 Minutes intravenous Once 09/19/24210009/19/242100 vancomycin (VANCOCIN) IVPB Dosed by Levels intravenous Dosed by Levels 09/19/242100 Recent Vancomycin Serum Concentrations: Indication: bacteremia Goal Vancomycin Range: Trough 15-20 mcg/mL Assessment . Patient is being initiated on vancomycin therapy Renal function assessment: BRANDON No vancomycin level as been collected for this patient Patient-specific risk-factors for nephrotoxicity include: pre-existing renal impairment and advanced age and dehydration. Plan Will initiate vancomycin loading dose of 2000 mg IV x 1 dose, followed by vancomycin dose by levels The next vancomycin random concentration will be ordered for 09/20, unless clinically indicated sooner Please see electronic record for orders Pharmacy Dosing Service to follow serum concentrations and adjust as needed based on the patient's clinical status. Thank you for consulting. Carolina Schulz RPH Pharmacist-Provider Communication Please note the dose of famotidine 20mg iv bid has been changed per the [facility]-approved renal dosing policy. Current CrCl = 6 mL/min. Accordingly, the dose of famotine 20mg iv bid was changed to famotidine 20mg iv q48hr. If there are any issues or concerns, please contact central pharmacy at [phone]. Thank you, Ayush Mina Jr. [facility]. documented in this encounter [facility] [employer] 09-26-2024 Hospital Discharge instructions Laura Gore, YARDER PUNCHER-REGENERATOR OPERATOR - 09/26/2024 2:57 PM EDT Neurosurgery Discharge Instructions Special Medication Instructions: No Aspirin, Anti-Platelet agents or other blood thinning medications unless instructed by your surgeon No alcohol. Pain Medication You will likely be prescribed narcotic pain medication to help with your pain after your surgery. Narcotics are addictive drugs and their use will be restricted. These will be prescribed for a short term period. Do not drive or operate other potentially dangerous machinery, power tools, or household implements, while taking narcotic medication. Please be aware all medication refill requests must be called to our office during the week. No medications will be refilled after hours or on the weekends. Narcotic medications for pain and other controlled substances require a physician authorization and signature which can take 2-3 days to obtain. Do not wait until you are out of your medication to request a refill. Continue stool softeners while taking narcotic pain medication. Add laxatives as needed *If you are prescribed narcotics at discharge, you will also likely be prescribed a medication called Narcan too, to be used in case of accidental narcotic overdose. To combat the Opioid epidemic, It is a requirement and best practice too prescribe Narcan when prescribing narcotics. It is recommended to fill this medication; however you may choose to not fill this prescription if desired and you accept the risks. Do not take the Narcan unless there is concern for overdose. Activities: No driving until cleared by your doctor May shower, no tub baths or swimming for 14 days No lifting greater than 5-10lbs Avoid strenuous activity Take short walks during the day as tolerated Stairs as tolerated, take your time Notify Doctor if you notice: Increased pain Redness, swelling, bleeding or drainage from incision Temperature 101 degrees or above Confusion, changes in your speech or vision Numbness, tingling or decreased strength different than before your surgery or new since your surgery. In case of emergency, call 911 immediately! If 911 is not available, call your local emergency medical system for help. Wound Care: Shower daily 2 days following surgery, washing incision with a gentle (baby) shampoo Do not apply creams or ointments to your incision Other Instructions: Call [facility] Neurosurgery with any questions, . documented in this encounter [facility] 09-23-2024 History and physical note HISTORY AND PHYSICAL INTERVAL NOTE: Anupama Vasquez 1970 [id number] H&P reviewed. The patient was examined and there are no changes to the H&P. Jair Espinal MD Source Note - JACQUELINE Roth - 09/21/2024 3:31 PM EDT Images from the original note were not included. [facility] [address] [place] [address], [address] [place] [address] * NEUROSURGERY DAILY PROGRESS NOTE DATE:09/21/2024 PATIENT'S NAME: Anupama Vasquez PATIENT'S PATIENT'S : 1970 PROCEDURE None EVENTS LAST 24 HOURS / SUBJECTIVE No acute events overnight. Patient resting in bed with eyes closed. Right wrist restraint on. No family at bedside. PHYSICAL EXAM Temp: [36.6 C (97.9 F)-36.9 C (98.5 F)] 36.9 C (98.4 F) Pulse: [68-111] 91 Resp: [16-23] 20 BP: (118-157)/(74-98) 139/78 SpO2: [94 %-100 %] 94 % O2 Device: None (Room air) O2 Flow Rate (L/min): [0 L/min-2 L/min] 0 L/min Physical Exam Drowsy, awakens easily Oriented to self RUE - follows commands, overcomes gravity, R wrist restraint in place RLE - Follows commands, attempts to bend at knee but unable to overcome gravity LUE - delayed response but squeezes hands, can't overcome gravity LLE - delayed response but wiggles toes, can't overcome gravity Respirations even and non labored NG in place LABORATORY DATA Results from last 7 days Lab Units 09/21/24 0230 09/20/24195509/20/24 1114 09/20/24 0259 09/19/248 09/19/24 1223 09/19/24 0446 09/19/24 0412 09/19/24 0407 09/19/24 0026 SODIUM mmol/L 148* 147* 151* 154* 154* < > -- 159* 156* -- 151* POTASSIUM mmol/L 3.9 5.1* 4.0 4.0 4.3 < > -- 4.5 4.3 -- 4.6 CREATININE mg/dL 1.27* -- -- 2.60* -- -- -- 7.54* -- 9.65* BEDSIDE GLUCOSE mg/dL -- -- -- -- -- -- -- -- 110* -- GLUCOSE mg/dL 127* -- -- 149* -- -- -- 107* -- 103* CALCIUM mg/dL 9.2 -- -- 9.3 -- -- -- 9.2 -- 9.3 APTT sec -- -- -- -- -- -- -- -- -- 28 INR -- -- -- -- -- -- -- -- -- 1.2 WBC x10E9/L 12.2* -- -- 8.9 -- -- 9.2 -- -- 10.3 HEMATOCRIT % 33.6* -- -- 33.5* -- -- 34.9* -- -- 34.9* HEMOGLOBIN g/dL 11.0* -- -- 11.0* -- -- 11.4* -- -- 11.5* PLATELETS X10E9/L 183 -- -- 190 -- -- 189 -- -- 199 < > = values in this interval not displayed. 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 Consent obtained from daughter, Anna Vasquez, via telephone. All questions answered. - Continue Decadron 4 mg every 6 hours for cerebral edema - Continue Keppra 500 mg BID for seizure prophylaxis - Sodium goal 145 -150 - Serial neuro checks - DVT ppx: SubQ heparin 5,000 units (order to stop 09/23 0000 for OR) - Diet NPO on 09/23 at 0000 - Remainder of care per ICU team and consulting teams JACQUELINE Chun Neurosurgery [facility] Patient Touch 09/21/24 6:51 AM To find out which DIANE is on for the day please go to ON-Call Finder in [employer] or [employer] and use log in Parking Panda and search for [facility] Neurosurgery JACQUELINE Roth 09/21/24 8929 JACQUELINE Roth 09/23/24 1311 CRITICAL CARE HISTORY & PHYSICAL Name: Anupama Vasquez Date: 09/19/2024 Length of Stay: 0 day(s) Chief Complaint Patient presents with Altered Mental Status Evaluation of Abnormal Diagnostic Test HISTORY OF PRESENT ILLNESS: Anupama Vasquez is a 54 y.o. year-old female with a past medical history significant for MS, who initially presented to [facility] from her rehab facility with complaints of altered mental status. Per chart review patient was recently treated for rhabdomyolysis. Her initial workup was significant for hyperkalemia with a potassium of 5.5, BRANDON with creatinine of 15.68, BUN 133, bicarb 20 and leukocytosis with WBC 12.7, also as CT head was obtained and demonstrated a 4.1 cm right temporal brain mass with [id number] 60 mm shift which includes surrounding edema Patient was subsequently transferred to our hospital for Neurosurgery recommendations and was admitted to the medical ICU given above findings. Upon my evaluation patient was found to be alert, able to protect her airway, answering simple yes and no questions but unable answer review of system questions. Only oriented to self Past Medical History: Diagnosis Date MS (multiple sclerosis) ([facility]) 2012 Past Surgical History: Procedure Laterality Date CARPAL TUNNEL RELEASE Left SHOULDER ARTHROSCOPY W/ ROTATOR CUFF REPAIR Left Review of Systems Medications Prior to Admission Medication Sig Dispense Refill Last Dose/Taking acetaminophen (TYLENOL) 325 mg tablet Take 2 tablets (650 mg total) by mouth every 6 (six) hours as needed for pain. busPIRone (BUSPAR) 7.5 mg tablet Take 1 tablet (7.5 mg total) by mouth every 8 (eight) hours as needed (anxiety). metoprolol tartrate (LOPRESSOR) 25 mg tablet Take 0.5 tablets (12.5 mg total) by mouth in the morning and 0.5 tablets (12.5 mg total) before bedtime. Do all this for 30 days. mirtazapine (REMERON CANDI-TAB) 15 mg disintegrating tablet Dissolve 1 tablet (15 mg total) on tongue nightly. famotidine, 20 mg, intravenous, Q48H [START ON 09/20/2024] heparin (porcine), 5,000 Units, subcutaneous, Q8H FELTON sennosides-docusate sodium, 2 tablet, oral, Nightly dextrose 2.5 % in water, 1,000 mL infusion, 50-150 mL/hr, Last Rate: 100 mL/hr (09/19/24 0352) dextrose 5 % in water, 100 mL/hr sodium chloride 0.9 %, 10 mL/hr sodium chloride 0.9 %, 10 mL/hr sodium chloride 0.9 %, 10 mL/hr No Known Allergies Family History Problem Relation Age of Onset Stroke Mother Social History Socioeconomic History Marital status: Unknown Tobacco Use Smoking status: Some Days Current packs/day: 0.50 Types: Cigarettes Smokeless tobacco: Never Substance and Sexual Activity Alcohol use: Never Sexual activity: Defer Social Drivers of Health Financial Resource Strain: High Risk (06/04/2023) Received from [facility] Overall Financial Resource Strain (CARDIA) Difficulty of Paying Living Expenses: Very hard Food Insecurity: No Food Insecurity (09/16/2024) Hunger Screening Food Insecurity - Worry: Never True Food Insecurity - Inability: Never True Transportation Needs: No Transportation Needs (08/28/2024) PRAPARE - Transportation Lack of Transportation (Medical): No Lack of Transportation (Non-Medical): No Physical Activity: Sufficiently Active (06/04/2023) Received from [facility] Exercise Vital Sign Days of Exercise per Week: 4 days Minutes of Exercise per Session: 40 min Stress: No Stress Concern Present (06/04/2023) Received from [facility] [place] [employer] - Occupational Stress Questionnaire Feeling of Stress : Only a little Social Connections: Moderately Integrated (06/04/2023) Received from [facility] Social Connection and Isolation Panel [NHANES] Frequency of Communication with Friends and Family: Twice a week Frequency of Social Gatherings with Friends and Family: Once a week Attends Faith Services: 1 to 4 times per year Active Member of Clubs or Organizations: No Attends Club or Organization Meetings: Never Marital Status: Interpersonal Safety: Not At Risk (08/28/2024) Humiliation, Afraid, Rape, and Kick questionnaire Fear of Current or Ex-Partner: No Emotionally Abused: No Physically Abused: No Sexually Abused: No Housing Instability: Low Risk (08/28/2024) Housing Instability Housing Instability: No Temp: [36.7 C (98.1 F)-37.3 C (99.1 F)] 37.3 C (99.1 F) Pulse: [98-107] 98 Resp: [11-26] 25 BP: (121-163)/(57-124) 150/94 SpO2: [90 %-96 %] 92 % O2 Device: Nasal cannula O2 Flow Rate (L/min): [2 L/min] 2 L/min O2 Device: (S) Nasal cannula Physical Exam General: Well-developed, well-nourished, no apparent distress. Head: Normocephalic, atraumatic. Ears normal, nares patent. Eyes: PERRL, conjunctivae normal. Neck: No tracheal deviation, neck supple. Cardiovascular: Regular rate and rhythm; no murmurs, rubs, or gallops. Pulmonary: Clear to auscultation bilaterally, lung sounds diminished at bases. Abdomen: Soft, nontender, nondistended. No guarding or rebound tenderness. Neurological: No gross deficits. Moving all extremities to command. Skin: Warm, no rashes or erythema. Extremities: No cyanosis or clubbing. No peripheral edema. Pulses: 2+ peripheral pulses bilaterally in upper and lower extremities. Ventilator Invasive Hemodynamic [place] Results from last 3 days Lab Units 09/19/24 0026 BUN mg/dL 91* CREATININE mg/dL 9.65* POTASSIUM mmol/L 4.6 CO2 mmol/L 14* CHLORIDE mmol/L 120* AST U/L 8 ALT U/L 4 ALK PHOS U/L 73 Results from last 3 days Lab Units 09/19/24 0026 INR 1.2 PROTIME sec 14.0* Results from last 3 days Lab Units 09/19/24 0026 WBC x10E9/L 10.3 HEMOGLOBIN g/dL 11.5* HEMATOCRIT % 34.9* PLATELETS X10E9/L 199 MCV fL 84 MCH pg 27.7 MCHC g/dL 33.1 RDW % 15.7* EOS ABS AUTO 10*3/uL 0.4 Microbiology Results Procedure Component Value Units Date/Time Blood culture [[id number]] Collected: 09/19/24 0123 Specimen: Blood, Venous Updated: 09/19/24 0135 Blood culture [[id number]] Collected: 09/19/24 0026 Specimen: Blood, Venous Updated: 09/19/24 0045 Glucose Results from last 7 days Lab Units 09/19/24 0026 GLUCOSE mg/dL 103* No intake/output data recorded. famotidine, 20 mg, intravenous, Q48H [START ON 09/20/2024] heparin (porcine), 5,000 Units, subcutaneous, Q8H FELTON sennosides-docusate sodium, 2 tablet, oral, Nightly dextrose 2.5 % in water, 1,000 mL infusion, 50-150 mL/hr, Last Rate: 100 mL/hr (09/19/24 0352) dextrose 5 % in water, 100 mL/hr sodium chloride 0.9 %, 10 mL/hr sodium chloride 0.9 %, 10 mL/hr sodium chloride 0.9 %, 10 mL/hr Microbiology Results Procedure Component Value Units Date/Time Blood culture [[id number]] Collected: 09/19/24 0123 Specimen: Blood, Venous Updated: 09/19/24 0135 Blood culture [[id number]] Collected: 09/19/24 0026 Specimen: Blood, Venous Updated: 09/19/24 0045 Lines/Drains CVC Triple Lumen 09/19/24 Right Internal Jugular (Active) Precautions Standard precautions;Hand hygiene;Gloves 09/19/24 040 Lumen 1 Proximal 09/19/24 040 Lumen 1 Status Blood return noted;Saline locked;Flushed;Alcohol sponge cap changed;Connections checked/tightened 09/19/24 040 Lumen 1 Needleless Cap Change Completed 09/19/24 040 Lumen 1 Needleless Cap Change Due 09/23/24 09/19/24 0400 Lumen 2 Medial 09/19/24 040 Lumen 2 Status Blood return noted;Saline locked;Flushed;Alcohol sponge cap changed;Connections checked/tightened 09/19/24 040 Lumen 3 Distal 09/19/24 040 Lumen 3 Status Blood return noted;Flushed;Infusing;Alcohol sponge cap changed;Connections checked/tightened 09/19/24 040 Site Assessment Clean;Dry;Intact 09/19/24 040 Dressing Type Occlusive;Transparent with CHG gel 09/19/24 040 Dressing Status Clean;Dry;Intact 09/19/24 040 Dressing Intervention Dressing changed 09/19/24 040 Line Necessity Peripherally incompatible solution 09/19/24 040 Line Necessity Reviewed With crit care 09/19/24 040 Patient Tolerance of Line Care Tolerated well 09/19/24 040 Central Line Dressing Change Due (Non-Gauze) 09/26/24 09/19/24 040 Peripheral IV 09/19/24 Right Forearm (Active) Line Status Blood return noted;Saline locked;Flushed;Alcohol sponge cap changed;Connections checked/tightened 09/19/24 040 Site Assessment Clean;Intact;Dry 09/19/24 040 Dressing Type Occlusive;Transparent 09/19/24 040 Dressing Status Clean;Dry;Intact 09/19/24 040 Dressing Intervention Initial dressing 09/19/24 040 Dressing Change Due (Non-Gauze) 09/26/24 09/19/24 0400 Urinary Catheter 09/19/24 (Active) Catheter Status Patent 09/19/24 000 Site Assessment Clean 09/19/24 000 Collection Container Leg bag 09/19/24 000 Securement Method Securing device (Describe) 09/19/24 000 Tamper Evident Seal Intact Yes 09/19/24 000 Urine Color Yellow/straw 09/19/24 031 Urine Appearance Cloudy 09/19/24 031 Output (mL) 1550 mL 09/19/24 031 Patient Active Problem List Diagnosis Non-traumatic rhabdomyolysis Weakness Generalized anxiety disorder with panic attacks Hyperlipidemia, acquired Multiple sclerosis ([facility]) LORENZO (obstructive sleep apnea) Primary hypertension Primary insomnia Cognitive communication deficit Depression, unspecified Difficulty in walking, not elsewhere classified Dysphagia, oropharyngeal phase Generalized muscle weakness Limitation of activities due to disability Nutritional deficiency, unspecified Traumatic rupture of lumbar intervertebral disc 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 year-old female who was admitted to the medical ICU with consultation to Neurosurgery given acute findings of a 4.1 cm right temporal brain mass with [id number] 60 mm shift which includes surrounding edema 4.1 cm right temporal brain mass with 6 mm waudh-ek-sefw midline shift - closely monitor neuro status - neurosurgery consult pending - cerebral edema management per Neurosurgery Acute kidney injury - creatinine improving after Alexis placement. Currently 9.65 from 15.68 - strict Is&Os - closely monitor electrolytes and replace as needed per ICU protocol - avoid nephrotoxic medications - Nephrology's recommendations appreciated - continue gentle hydration with hypotonic fluid Altered mental status - most likely multifactorial in the setting of uremia and cerebral edema with midline shift - neuro checks every 2 hours Hypernatremia - sodium 151 - continue hypotonic fluid with D2.5W. Titrate as needed per sliding scale Electrolyte Replacement per ICU Protocol DVT/GI Prophylaxis with subcutaneous heparin and Pepcid Discussed plan of care with RN at bedside POC also d/w Dr. Jung, further orders to follow. MICHELLE GONZALEZ, YARDER PUNCHER-REGENERATOR OPERATOR Acute Care Nurse Practitioner [facility] Please feel free to contact me via Patient Touch Critical Care Time: 39 minutes. Non-contiguous time with attending MD, excluding procedures. [] This patient, with a critical illness, requires constant monitoring and titration of care by a Critical Care Automation Machine Builder. Failure to do so may result in further organ system failure, imminent deterioration, or . JACQUELINE Ervin 09/19/2435 Cosigned by Sheila Jung MD at 09/19/2024 6:12 AM EDT documented in this encounter [facility] 09-23-2024 Note XR CHEST 1 VW History: Preoperative exam. History of asthma. Procedure: Chest AP portable upright Comparison: 10/06/2024 Findings: The heart and lungs show no acute findings, and the mediastinum and gema are grossly negative . No pneumothorax. Impression: No acute pulmonary process. Finalized by Shen Farooq MD on 09/23/2024 12:23 PM [facility] 09-22-2024 Consult note Associated Order (s): IP CONSULT TO CARDIOLOGY Images from the original note were not included. [facility] [address] [place] [address] HISTORY & PHYSICAL / CONSULT NOTE Anupama Vasquez PCP: JACQUELINE LUNA Date of Admission: 09/18/2024 Date of Consultation: 09/22/2024 11:32 AM Consult for arrhythmia / risk stratification SUBJECTIVE History of Present Illness: Anupama Vasquez is a 54 y.o. female who comes in with altered mental status. Pt has past medical history of multiple sclerosis presented to outside facility. Pt was initially hyperkalemic and BRANDON with creat initially 15.68. CT head showed 4.1 cm temporal brain mass with right to left 60 mm shift with surrounding edema. Pt was transferred to [facility]. Pt still has altered mental status. From a cardiac standpoint she was having intermittent narrow complex tachycardia. Previous Medical History: Past Medical History: Diagnosis Date MS (multiple sclerosis) ([facility]) 2012 Previous Surgical History: Past Surgical History: Procedure Laterality Date CARPAL TUNNEL RELEASE Left SHOULDER ARTHROSCOPY W/ ROTATOR CUFF REPAIR Left Allergies: No Known Allergies Hospital Meds: Current Facility-Administered Medications Medication Dose Route Frequency Provider Last Rate Last Admin acetaminophen (TYLENOL) tablet 650 mg 650 mg oral Q6H PRN MARCELLE Spencer Or acetaminophen (TYLENOL) 650 mg/20.3 mL solution 650 mg 650 mg nasogastric Q6H PRN MARCELLE Spencer bisacodyL (DULCOLAX) suppository 10 mg 10 mg rectal Daily PRN MARCELLE Spencer calcium gluconate 3,000 mg in sodium chloride 0.9 % 100 mL IVPB 3,000 mg intravenous PRN JACQUELINE Hughes calcium gluconate 4,000 mg in sodium chloride 0.9 % 250 mL IVPB 4,000 mg intravenous PRN JACQUELINE Hughes calcium gluconate IVPB 2000 mg/100 mL (20 mg/mL premix) 2,000 mg intravenous PRN JACQUELINE Hughes dexAMETHasone (DECADRON) injection 4 mg 4 mg intravenous Q6H [facility] JACQUELINE Vazquez 4 mg at 09/22/24 0609 dextrose (GLUTOSE) 40 % gel 15 g 15 g oral PRN MARCELLE Spencer dextrose 2.5 % in water, 1,000 mL infusion 50-150 mL/hr intravenous Continuous Steffanie Lozano APRN-RUBINA Stopped at 09/22/24 0747 dextrose 50 % in water (D50W) 50% solution 25 mL 25 mL intravenous PRN MARCELLE Spencer famotidine (PF) (PEPCID) injection 20 mg 20 mg intravenous Q48H MARCELLE Spencer 20 mg at 09/21/24 1507 glucagon HCL injection 1 mg 1 mg intramuscular PRN MARCELLE Spencer heparin (porcine) injection 5,000 Units 5,000 Units subcutaneous Q8H [facility] JACQUELINE Roth 5,000 Units at 09/22/24 0608 hydrALAZINE (APRESOLINE) injection 10 mg 10 mg intravenous Q6H PRN MARCELLE Spencer 10 mg at 09/20/24 2120 labetaloL (NORMODYNE,TRANDATE) injection 10 mg 10 mg intravenous Q4H PRN MARCELLE Spencer 10 mg at 09/22/24 0733 levETIRAcetam (KEPPRA) IVPB 500 mg/100 mL in iso-osmotic sodium chloride (5 mg/mL premix) 500 mg intravenous Q12H JACQUELINE Vazquez Stopped at 09/22/24 0629 magnesium sulfate IVPB 2000 mg/50 mL in iso-osmotic water (40 mg/mL premix) 2,000 mg intravenous PRN JACQUELINE Hughes Stopped at 09/21/24 0527 magnesium sulfate IVPB 4000 mg/100 mL in iso-osmotic water (40 mg/mL premix) 4,000 mg intravenous PRN JACQUELINE Hughes metoprolol tartrate (LOPRESSOR) tablet 12.5 mg 12.5 mg nasogastric BID JACQUELINE Hamilton 12.5 mg at 09/22/24 0905 mirtazapine (REMERON CANDI-TAB) disintegrating tablet 15 mg 15 mg nasogastric Nightly JACQUELINE Hamilton 15 mg at 09/21/24 2244 polyethylene glycol (GLYCOLAX) packet 17 g 17 g oral Daily PRN MARCELLE Spencer potassium chloride (K-TAB,KLOR-CON) CR tablet 20-60 mEq 20-60 mEq oral PRN JACQUELINE Hughes Or potassium chloride (KAYCIEL) 20 mEq/15 mL solution 20-60 mEq 20-60 mEq oral PRN JACQUELINE Hughes Or potassium chloride IVPB 10 mEq/100 mL in water (0.1 mEq/mL premix) 10 mEq intravenous PRN JACQUELINE Hughes sennosides-docusate sodium (SENOKOT-S) 8.6-50 mg 2 tablet 2 tablet oral Nightly MARCELLE Spencer sodium phosphate 20 mmol in sodium chloride 0.9 % 250 mL IVPB 20 mmol intravenous PRN JACQUELINE Hughes Or sodium phosphate 20 mmol in sodium chloride 0.9 % 100 mL IVPB 20 mmol intravenous PRN JACQUELINE Hughes Or sod phos di, mono-K phos mono (K-PHOS NEUTRAL) 250 mg tablet 2 tablet 2 tablet oral PRN JACQUELINE Hughes vancomycin (VANCOCIN) IVPB Dosed by Levels intravenous Dosed by Levels JACQUELINE Ervin Home Meds: Prior to Admission medications Medication Sig Start Date End Date Taking? Authorizing Provider acetaminophen (TYLENOL) 325 mg tablet Take 2 tablets (650 mg total) by mouth every 6 (six) hours as needed for pain. Not In System Ref Prov busPIRone (BUSPAR) 7.5 mg tablet Take 1 tablet (7.5 mg total) by mouth every 8 (eight) hours as needed (anxiety). Not In System Ref Prov metoprolol tartrate (LOPRESSOR) 25 mg tablet Take 0.5 tablets (12.5 mg total) by mouth in the morning and 0.5 tablets (12.5 mg total) before bedtime. Do all this for 30 days. 09/01/24 10/01/24 JACQUELINE Caputo mirtazapine (REMERON CANDI-TAB) 15 mg disintegrating tablet Dissolve 1 tablet (15 mg total) on tongue nightly. Not In System Ref Prov Social History: TOBACCO: reports that she has been smoking cigarettes. She has never used smokeless tobacco. ETOH: reports no history of alcohol use. DRUGS: reports current drug use. Drug: Marijuana. OCCUPATION: Family History: Family History Problem Relation Age of Onset Stroke Mother Review of Systems: Unable to assess OBJECTIVE LAST LABS: CBC: Results from last 7 days Lab Units 09/22/24 0614 09/21/24 0230 09/20/24 0259 WBC x10E9/L 13.7* 12.2* 8.9 HEMOGLOBIN g/dL 12.3 11.0* 11.0* HEMATOCRIT % 38.0 33.6* 33.5* MCV fL 83 83 82 PLATELETS X10E9/L 167 183 190 BMP: Results from last 7 days Lab Units 09/22/24 0614 09/21/24 2041 09/21/24 1152 09/21/24 0230 09/20/24 1114 09/20/24 0259 SODIUM mmol/L 144 146 145 148* < > 154* POTASSIUM mmol/L 4.4 4.2 4.1 3.9 < > 4.0 CHLORIDE mmol/L 110* 113* 112* 114* < > 119* CO2 mmol/L 23 22 24 24 < > 24 BUN mg/dL 24* -- -- 24* -- 38* CREATININE mg/dL 1.01* -- -- 1.27* -- 2.60* CALCIUM mg/dL 9.0 -- -- 9.2 -- 9.3 PHOSPHORUS mg/dL 3.3 -- -- 2.7 -- 3.5 MAGNESIUM mg/dL 1.9 -- -- 1.8 -- 1.8 < > = values in this interval not displayed. PT/INR: Results from last 7 days Lab Units 09/19/24 0026 PROTIME sec 14.0* INR 1.2 APTT: MAG: Results from last 7 days Lab Units 09/22/24 0614 09/21/24 0230 09/20/24 0259 MAGNESIUM mg/dL 1.9 1.8 1.8 D Dimer: Troponin I ProBNP Lipid Panel: Lab Results Component Value Date CHOL 151 08/29/2024 TRIG 112 08/29/2024 HDL 29 (L) 08/29/2024 Liver Panel: No results found for: TBIL , ALB HgA1C: Lab Results Component Value Date HGBA1C 5.4 09/19/2024 ABG: CV HISTORY: CXR: X-ray chest 1 view Result Date: 08/28/2024 Portable chest: HISTORY: Cough and weakness. Single view of the chest was obtained. Cardiac and mediastinal contours are within normal limits. Lungs clear. There is no vascular congestion or effusion. IMPRESSION: Negative exam. Finalized by Gian Gilbert MD on 08/28/2024 10:58 AM EKG: TELEMETRY: tachycardia PHYSICAL EXAM Admission Weight: Weight: 122.4 kg (269 lb 13.5 oz) I/O last 3 completed shifts: In: 3688.4 [I.V.:2195.8; NG/GT:90; IV Piggyback:1402.6] Out: 3625 [Urine:3625] Weight change: 0 kg (0 lb) Wt Readings from Last 3 Encounters: 09/22/24 118.7 kg (261 lb 11 oz) 09/01/24 122.4 kg (269 lb 14.4 oz) Vitals: Vitals: 09/22/24 0720 09/22/24 0827 09/22/24 0832 09/22/24 0958 BP: 154/84 146/87 Pulse: 85 88 82 73 Resp: 21 18 18 17 Temp: 36.9 C (98.5 F) TempSrc: Oral SpO2: 96% 97% 98% 95% Weight: Height: Admit Weight Weight: 122.4 kg (269 lb 13.5 oz) Last 3 Weights Last 3 Weight Readings 09/21/24 0000 09/21/24 0700 09/22/24 0432 Weight: 118.5 kg (261 lb 3.9 oz) 118.5 kg (261 lb 3.9 oz) 118.7 kg (261 lb 11 oz) Body mass index is 40.98 kg/m . INTAKE/OUTPUT I/O last 3 completed shifts: In: 3688.4 [I.V.:2195.8; NG/GT:90; IV Piggyback:1402.6] Out: 3625 [Urine:3625] Intake/Output Summary (Last 24 hours) at 09/22/2024 1132 Last data filed at 09/22/2024 0900 Gross per 24 hour Intake 1438.34 ml Output 2650 ml Net -1211.66 ml General appearance: in no acute distress Skin: Warm and dry to touch Head: Normocephalic, without obvious abnormality, atraumatic Eyes: Conjunctivae unremarkable, EOMs intact, sclera non icteric Neck: No JVD, no carotid bruit, neck supple, trachea midline Lungs: Clear to ausculation bilaterally, no use of accessory muscles. Heart:: RRR with normal S1 and S2 , no murmurs and no gallops. Extremities: No edema ASSESSMENT Altered Mental Status Brain Mass Paroxysmal Atrial Tachycardia Hx of Multiple Sclerosis Obesity PLAN Plan echocardiogram today. Pt cannot answer basic questions with regards to activity level and therefore has to be high risk. Do not see any contraindication to proceed to OR. Plan echocardiogram prior to OR. Arrhythmia on tele is narrow complex and likely short burst of SVT and or sinus tachycardia. Will discuss with attending. MELO GILL PA-C This note was completed using a voice bender helper system. Every effort was made to ensure accuracy. However, inadvertent computerized bender helper errors may be present. Melo Gill PA-C 09/22/24 113 Cosigned by Ned Machado MD at 09/22/2024 1:27 PM EDT Images from the original note were not included. [facility] 9 ICU [address] [facility] [id number] Hospital Medicine Consultation Patient: Anupama Vasquez Date of : 1970 Room: [facility]/ PCP: JACQUELINE LUNA Admission date: 09/18/2024 11:59 PM Hospital Day: 4 Encounter date: 09/21/24 Hospital Day: 4 SUBJECTIVE Reason for Consult: Assume Primary on transfer from ICU Referring Physician/Team: Neurosurgery/Critical Care Anupama Vasquez is a 54 y.o. female with a past medical history including MS, hypertension, hyperlipidemia, obstructive sleep apnea, obesity who initially presented to [facility] via EMS 09/18/2024 from her extended care facility for altered mental status. Initial lab work at [facility] showed hyperkalemia of 5.5 creatinine 15.68, BUN 133, bicarb 20, and leukocytosis of 12.7. She was found to have over 2 L in her bladder and a Alexis catheter was inserted. The central line was also placed that time due to difficult IV access. She was found to have altered mental status at that time as well therefore CT of the brain was obtained which revealed a 4.1 cm right temporal brain mass with voaiz-yb-sqrr shift and surrounding edema. Case was discussed with neurosurgery and patient was transferred ER to ER here to [facility] for further neurosurgery evaluation. She was admitted to the intensive care unit under critical Care team with consultations to Neurosurgery, Nephrology, and Urology. Patient was stable for transfer out of ICU to the inpatient floor and internal Medicine has been requested to assume primary of the patient. Was seen and evaluated today at bedside, no family present. She remains confused however she was able to follow commands. Right upper extremity mitt in place as she is pulling at tubes and lines. She was able to tell me her name, that she was in the hospital however she was unable to tell me the date, year, current president, or why she was in the hospital. She was very drowsy and quickly falls back to sleep during the exam. On chart review, noted patient was treated under our service at [facility] in August for nontraumatic rhabdomyolysis. At that time she was living at home independently however conditions reported as poor including floor is covered in urine and feces. Appears patient at that time had not been getting out of her chair and has been voiding and defecating in her chair. She was unable to care for herself and would have some minimal support from her neighbor. She was placed in nursing facility at the time of discharge on September 01 2024. Appears she [facility] also [facility] buttock ulcer which is still present this admission. Allergies: Patient has no known allergies. Prior to Admission medications Medication Sig Start Date End Date Taking? Authorizing Provider acetaminophen (TYLENOL) 325 mg tablet Take 2 tablets (650 mg total) by mouth every 6 (six) hours as needed for pain. Not In System Ref Prov busPIRone (BUSPAR) 7.5 mg tablet Take 1 tablet (7.5 mg total) by mouth every 8 (eight) hours as needed (anxiety). Not In System Ref Prov metoprolol tartrate (LOPRESSOR) 25 mg tablet Take 0.5 tablets (12.5 mg total) by mouth in the morning and 0.5 tablets (12.5 mg total) before bedtime. Do all this for 30 days. 09/01/24 10/01/24 Tristen Lombardi APRN-REGENERATOR OPERATOR mirtazapine (REMERON CANDI-TAB) 15 mg disintegrating tablet Dissolve 1 tablet (15 mg total) on tongue nightly. Not In System Ref Prov Code Status: Full Code Past Medical History: Patient has a past medical history of MS (multiple sclerosis) ([facility]) (2012). Past Surgical History: Patient has a past surgical history that includes Carpal tunnel release (Left) and Shoulder arthroscopy w/ rotator cuff repair (Left). Family History: Patient's family history includes Stroke in her mother. Social History: Patient reports that she has been smoking cigarettes. She has never used smokeless tobacco. She reports current drug use. Drug: Marijuana. She reports that she does not drink alcohol. Review of Systems Unable to perform ROS: Mental status change OBJECTIVE BP 133/78 Pulse 90 Temp 36.8 C (98.2 F) (Oral) Resp 22 Wt 118.5 kg (261 lb 3.9 oz) LMP (LMP Unknown) SpO2 95% BMI 40.92 kg/m Temp: [36.6 C (97.9 F)-37 C (98.6 F)] 36.8 C (98.2 F) Pulse: [76-111] 90 Resp: [16-23] 22 BP: (118-157)/(74-98) 133/78 SpO2: [93 %-98 %] 95 % O2 Device: None (Room air) O2 Flow Rate (L/min): [0 L/min] 0 L/min Intake/Output Summary (Last 24 hours) at 09/21/2024 1526 Last data filed at 09/21/2024 1200 Gross per 24 hour Intake 2280.02 ml Output 2175 ml Net 105.02 ml Physical Exam Constitutional: General: She is not in acute distress. Appearance: She is well-developed. She is obese. Interventions: She is restrained. HENT: Head: Normocephalic and atraumatic. Nose: Nose normal. Comments: NGT Cardiovascular: Rate and Rhythm: Normal rate and regular rhythm. Heart sounds: Normal heart sounds. No murmur heard. Pulmonary: Effort: Pulmonary effort is normal. No respiratory distress. Breath sounds: Normal breath sounds. Decreased air movement present. No wheezing. Abdominal: General: Bowel sounds are normal. Palpations: Abdomen is soft. Tenderness: There is no abdominal tenderness. Genitourinary: Comments: Laexis catheter in place Musculoskeletal: General: Normal range of motion. Cervical back: Neck supple. Lymphadenopathy: Cervical: No cervical adenopathy. Skin: General: Skin is warm and dry. Findings: Wound (Buttocks, various skin tears) present. No rash. Neurological: Mental Status: She is lethargic and disoriented. Cranial Nerves: No facial asymmetry. Motor: Weakness (Left> right) present. Comments: Opens eyes to voice and tactile stimulation Drowsy Follows commands x4 Psychiatric: Attention and Perception: She is inattentive. Mood and Affect: Affect is flat. Behavior: Behavior is slowed. Behavior is cooperative. Medications Scheduled: dexAMETHasone, 4 mg, intravenous, Q6H [place] famotidine, 20 mg, intravenous, Q48H heparin (porcine), 5,000 Units, subcutaneous, Q8H [place] levETIRAcetam, 500 mg, intravenous, Q12H metoprolol tartrate, 12.5 mg, nasogastric, BID mirtazapine, 15 mg, nasogastric, Nightly sennosides-docusate sodium, 2 tablet, oral, Nightly vancomycin, 1,500 mg, intravenous, Once vancomycin, , intravenous, Dosed by Levels Infusions: dextrose 2.5 % in water, 1,000 mL infusion, 50-150 mL/hr, Last Rate: 50 mL/hr (09/21/24 0426) As Needed: acetaminophen OR acetaminophen bisacodyL calcium gluconate calcium gluconate calcium gluconate dextrose dextrose 50 % in water (D50W) glucagon (human recombinant) hydrALAZINE labetalol magnesium sulfate magnesium sulfate polyethylene glycol potassium chloride OR potassium chloride OR potassium chloride IV (Adult) sodium phosphate IV OR sodium phosphate IV - central line OR sod phos di, mono-K phos mono Allergies: Patient has no known allergies. Labs Recent Results (from the past 24 hours) Vancomycin, random Collection Time: 09/20/24 7:56 PM Result Value Ref Range VANCOMYCIN 10.0 5.0 - 40.0 ug/mL Narrative Peak 30-40 ug/mL Trough 5-20 ug/ml Electrolyte panel Collection Time: 09/20/24 7:56 PM Result Value Ref Range SODIUM 147 (H) 134 - 146 mmol/L POTASSIUM 5.1 (H) 3.5 - 5.0 mmol/L CHLORIDE 113 (H) 98 - 109 mmol/L CARBON DIOXIDE 25 22 - 32 mmol/L ANION GAP 9 5 - 15 mmol/L Ionized calcium Collection Time: 09/21/24 2:30 AM Result Value Ref Range IONIZED CALCIUM - ICAN 5.1 4.5 - 5.3 mg/dL Basic Metabolic Panel Collection Time: 09/21/24 2:30 AM Result Value Ref Range SODIUM 148 (H) 134 - 146 mmol/L POTASSIUM 3.9 3.5 - 5.0 mmol/L CHLORIDE 114 (H) 98 - 109 mmol/L CARBON DIOXIDE 24 22 - 32 mmol/L ANION GAP 10 5 - 15 mmol/L BLOOD UREA NITROGEN 24 (H) 5 - 23 mg/dL CREATININE 1.27 (H) 0.40 - 1.00 mg/dL GLUCOSE 127 (H) 65 - 99 mg/dL CALCIUM 9.2 8.5 - 10.5 mg/dL EGFR Non-Race Dependent 50 (L) >=60 ml/min/1.73sq.m Magnesium Collection Time: 09/21/24 2:30 AM Result Value Ref Range MAGNESIUM 1.8 1.8 - 2.6 mg/dL Phosphorus Collection Time: 09/21/24 2:30 AM Result Value Ref Range PHOSPHORUS 2.7 2.4 - 4.9 mg/dL CBC auto differential Collection Time: 09/21/24 2:30 AM Result Value Ref Range WBC 12.2 (H) 4 - 11 x10E9/L RBC Count 4.05 3.8 - 5.2 X10E12/L Hemoglobin 11.0 (L) 11.7 - 15.5 g/dL Hematocrit 33.6 (L) 35 - 47 % MCV 83 80 - 100 fL MCH 27.1 27 - 34 pg MCHC 32.6 32 - 36 g/dL RDW 15.1 (H) 11.5 - 15 % Platelet Count 183 150 - 450 X10E9/L MPV 9.2 7 - 12 fL Neutrophils Relative 88.3 % Lymphocytes Relative 6.2 % Monocytes Relative 4.8 % Eosinophils Relative 0.0 % Basophils Relative 0.7 % Neutrophils Absolute (A) 10.8 10*3/uL Lymphocytes Absolute 0.8 10*3/uL Monocytes Absolute 0.6 10*3/uL Eosinophils Absolute 0.0 10*3/uL Basophils Absolute 0.1 10*3/uL Differential Type AUTOMATED DIFFERENTIAL Ionized magnesium Collection Time: 09/21/24 11:52 AM Result Value Ref Range IONIZED MAGNESIUM 0.61 0.45 - 0.74 mmol/L Vancomycin, random Collection Time: 09/21/24 11:52 AM Result Value Ref Range VANCOMYCIN 16.0 5.0 - 40.0 ug/mL Narrative Peak 30-40 ug/mL Trough 5-20 ug/ml Electrolyte panel Collection Time: 09/21/24 11:52 AM Result Value Ref Range SODIUM 145 134 - 146 mmol/L POTASSIUM 4.1 3.5 - 5.0 mmol/L CHLORIDE 112 (H) 98 - 109 mmol/L CARBON DIOXIDE 24 22 - 32 mmol/L ANION GAP 9 5 - 15 mmol/L Radiology X-ray abdomen NG Tube placement 1 view Result Date: 09/20/2024 Narrative: Supine abdominal radiograph HISTORY: NG placement COMPARISON: None IMPRESSION: NG tube extends below the diaphragm into the stomach with tip in the distal gastric body. Finalized by Thad Aguero MD on 09/20/2024 8:[address] abdomen and pelvis without contrast Result Date: 09/20/2024 Narrative: CT ABDOMEN AND PELVIS WITHOUT IV CONTRAST HISTORY: Renal stones, obstruction COMPARISON STUDY: Ultrasound 09/19/2024. TECHNIQUE: CT scan of the abdomen and pelvis performed without IV or PO contrast. Coronal and sagittal reformats generated and reviewed. FINDINGS: Solid visceral organs limited in evaluation secondary to lack of IV contrast. LOWER THORAX: Lower lung atelectasis. HEPATOBILIARY: Scattered hepatic calcifications, no suspicious hepatic mass. No biliary ductal dilatation. Gallbladder is normal. SPLEEN: Unremarkable. PANCREAS: Mild splenomegaly 15 cm craniocaudal dimension ADRENALS: No adrenal nodules. KIDNEYS/URETERS: No urinary tract calculi. There is mild pelvocaliectasis both kidneys, no significant dilatation of either ureter. No visible distal obstructing process. No suspicious renal mass. GI TRACT: No bowel obstruction. Appendix is normal. Colonic diverticulosis without inflammatory change. PELVIC ORGANS/BLADDER: Containing Alexis catheter, bladder wall thickening may be present. No bladder stone. PERITONEUM/RETROPERITONEUM: No free air or fluid. LYMPH NODES: No enlarged lymph nodes. VESSELS: Atherosclerotic calcifications without abdominal aortic aneurysm. BONES AND SOFT TISSUES: No suspicious osseous lesion. IMPRESSION: 1. No urinary tract calculi. There is mild pelvocaliectasis both kidneys, no significant dilatation of either ureter. No visible distal obstructing process. 2. Splenomegaly. 3. Bladder wall thickening, please correlate with urinalysis. All CT scans at this facility use dose modulation, iterative reconstruction, and/or weight based dosing when appropriate to reduce radiation dose to as low as reasonably achievable. Finalized by Bipin Mejia MD on 09/20/2024 3:53 PM MR brain synaptive protocol Result Date: 09/20/2024 Narrative: History: Right temporal lobe mass shown on brain CT COMPARISON: Brain CT from September 18 outside facility [facility] PROCEDURE: Multiplanar multisequence images performed through the brain without contrast utilizing synaptive protocol for surgical planning. FINDINGS: Right temporal mass midline shift to the opposite side measuring 14 mm. Extensive surrounding vasogenic edema and mass effect partially compressing the right lateral ventricle and completely compressing the third ventricle with dilatation of the left lateral ventricle. The lesion shows heterogeneous intense enhancement and measures 44.4 mm superior to inferior by 46.4 mm anterior to posterior and 38.7 mm medial to lateral Extensive susceptibility artifacts within the process suggesting some calcification or hemorrhage No extra-axial fluid collections. No MR evidence for an infarct. Diffusion tensor imaging utilized for delineating the associated white matter tracts. IMPRESSION: Right temporal lobe lesion detailed above for surgical planning. 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 Metastasis can also present in this fashion. Finalized by Juan Antonio Lindquist MD on 09/20/2024 7:17 AM Ultrasound retroperitoneal complete Result Date: 09/19/2024 Narrative: US RETROPERITONEAL COMPLETE HISTORY: Acute renal failure, renal size evaluation, rule out hydronephrosis. COMPARISON: None. TECHNIQUE: Grayscale and color Doppler sonographic images of the urinary bladder and both kidneys. FINDINGS: Right kidney: * 10.6 x 5.3 x 6.1 cm. Cortex: 0.7 cm. Normal echogenicity. * There is a 0.4 cm echogenic focus within the right renal pelvis/proximal right ureter which demonstrates twinkle artifact, compatible with renal calculus. There is mild prominence of the right renal pelvis which measures 1.2 cm and proximal ureter which measures 0.9 cm. Left kidney: * 14.0 x 4.6 x 5.6 cm. Cortex: 0.7 cm. Normal echogenicity. * Mild prominence of the left renal pelvis which measures up to 2.1 cm. No evidence of contour deforming mass or calculi. Alexis catheter noted within the decompressed bladder. IMPRESSION: * Right nephrolithiasis measuring 0.4 cm with mild right hydronephrosis. * Mild left hydronephrosis without visualized calculus. Approved by Resident Tk Najera MD on 09/19/2024 6:30 AM I, Mao Varner MD have personally reviewed the image(s) and agree with and/or edited the report Finalized by Mao Varner MD on 09/19/2024 6:[address] angiogram chest Result Date: 08/28/2024 Narrative: CLINICAL INFORMATION: Status post fall with injury to the left side of the chest.. elevated dimer TECHNIQUE: CT angiography of the chest with intravenous contrast. MIP reformats were generated on a separate workstation under concurrent physician supervision and reviewed to further define anatomy and possible pathology. All CT scans at this facility use dose modulation, iterative reconstruction, and/or weight based dosing when appropriate to reduce radiation dose to as low as reasonably achievable. COMPARISON: No relevant prior studies available. FINDINGS: Visualized thyroid gland is normal. No enlarged axillary, supraclavicular or mediastinal lymph nodes. Thoracic aorta nonaneurysmal. Normal variation 4 vessel aortic arch. No pulmonary embolism given contrast bolus timing limitations. The heart size is normal. Heavy burden of coronary calcifications. No pericardial effusion. The esophagus is unremarkable. Images of the upper abdomen are negative for acute or suspicious pathology in the [id number]. The trachea and bronchi are patent. No filling defects are identified. No suspicious pulmonary nodules or masses. Calcified and noncalcified pulmonary nodules are noted the largest distinct pulmonary nodule in the right upper lobe measuring 4 mm. No dedicated follow-up imaging is recommended with no provided history of malignancy or smoking. No aggressive osseous lesions. No acute fractures. Age compatible degenerative changes in the osseous structures. IMPRESSION: * No acute intrathoracic findings. Finalized by Reji Saini MD on 08/28/2024 12:40 PM X-ray chest 1 view Result Date: 08/28/2024 Narrative: Portable chest: HISTORY: Cough and weakness. Single view of the chest was obtained. Cardiac and mediastinal contours are within normal limits. Lungs clear. There is no vascular congestion or effusion. IMPRESSION: Negative exam. Finalized by Gian Gilbert MD on 08/28/2024 10:58 AM HOSPITAL PROBLEM LIST Principal Problem: Altered mental status, unspecified altered mental status type Active Problems: Generalized anxiety disorder with panic attacks Hyperlipidemia, acquired Multiple sclerosis (CMS-HCC) LORENZO (obstructive sleep apnea) Primary hypertension Depression, unspecified Dysphagia, oropharyngeal phase ASSESSMENT & PLAN Right temporal brain mass Metabolic encephalopathy/Altered mental status secondary to above Neurosurgery following MRI brain demonstrates right temporal mass with 14 mm midline shift and extensive surrounding vasogenic edema with mass effect compressing the right lateral ventricle and 3rd ventricle Altered mental status likely secondary to metabolic encephalopathy from above Plans for OR on Saturday with Neurosurgery for craniotomy with tumor excision Continues to be drowsy with left-sided weakness Currently on Decadron 4 mg q.6 hours for cerebral edema Currently on Keppra 500 mg b.i.d. for seizure prophylaxis Acute kidney injury, suspect post renal, improving Acute urinary retention, resolved Hypernatremia, improved Hyperkalemia, resolved Nephrology following Urology following peripherally Alexis catheter placed for I volume urinary retention of 1.5 L BRANDON and bilateral mild hydro ureteral nephrosis secondary to above Renal ultrasound with right nephrolithiasis with mild right hydronephrosis and mild left hydronephrosis Creatinine peaked at 9.65 on admission; previously normal in August 2024 at 0.8 down to 1.27 today; GFR and BUN steadily improving Alexis catheter to be maintained for at least 1 week per Urology Sodium level 148 this morning; slowly downtrending- goal 145-150 On D2.5 per Nephro Positive blood culture Positive blood cultures 1/2 positive staph epi, methicillin-resistant Was started on vancomycin Repeat blood cultures x2 are NGTD Likely contaminant but will continue to monitor cultures for growth Likely Dysphagia Too drowsy for swallow study NGT in place Tube feeds per NGT Speech therapy and Nutrition to follow Buttock wound Wound care following Previously following with [facility] Wound care per orders Q.2 hours turns and skin care per protocol Hypertension Hyperlipidemia Restart home metoprolol down NGT Goal SBP 90-140 Depression Generalized anxiety disorder with panic attacks Continue home dose Remeron nightly down NGT Multiple sclerosis stable Chart reviewed. Patient to move out of ICU to step-down floor. DVT/VTE prophylaxis: SCD and heparin SQ. GI prophylaxis: add famotidine. DC planning: TBD pending surgical intervention but anticipate will need placement at discharge. Anjelica Venegas, ELAN-RUBINA 09/21/2024 3:26 PM [facility] 7AM-7PM & 7PM-7AM: EpicChat or page through On-[employer]. JACQUELINE Hamilton 09/21/24 1543 I, Skye Lara MD, personally performed the face to face diagnostic evaluation on this patient. I have reviewed the DIANE's History, Exam, and MDM and agree with the assessment and plan as written. Associated Order(s): IP CONSULT TO NUTRITION SERVICES NUTRITION ADULT INITIAL EVALUATION NUTRITION ASSESSMENT: Reason to be seen: TF management Patient History: Admit Diagnosis: Patient Active Problem List Diagnosis Non-traumatic rhabdomyolysis Weakness Generalized anxiety disorder with panic attacks Hyperlipidemia, acquired Multiple sclerosis ([facility]) LORENZO (obstructive sleep apnea) Primary hypertension Primary insomnia Cognitive communication deficit Depression, unspecified Difficulty in walking, not elsewhere classified Dysphagia, oropharyngeal phase Generalized muscle weakness Limitation of activities due to disability Nutritional deficiency, unspecified Traumatic rupture of lumbar 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 Patient with BRANDON, acute urine retention, found to have right temporal mass Biochemical Data, Medical Tests, and Procedures: 09/23 OR Craniotomy planned for tumor excision Labs: Results from last 3 days Lab Units 09/21/24 0230 09/20/24 1956 09/20/24 1114 09/20/24 0259 09/19/24 1223 09/19/24 0412 09/19/24 0026 SODIUM mmol/L 148* 147* 151* 154* < > 159* 156* 151* POTASSIUM mmol/L 3.9 5.1* 4.0 4.0 < > 4.5 4.3 4.6 CHLORIDE mmol/L 114* 113* 117* 119* < > 120* 119* 120* CO2 mmol/L 24 25 26 24 < > 22 22 14* BUN mg/dL 24* -- -- 38* -- 81* 91* CREATININE mg/dL 1.27* -- -- 2.60* -- 7.54* 9.65* CALCIUM mg/dL 9.2 -- -- 9.3 -- 9.2 9.3 ALBUMIN g/dL -- -- -- -- -- -- 3.4 ALK PHOS U/L -- -- -- -- -- -- 73 ALT U/L -- -- -- -- -- -- 4 AST U/L -- -- -- -- -- -- 8 < > = values in this interval not displayed. Results from last 7 days Lab Units 09/21/2422909/20/2425809/19/2441109/19/247 09/19/24 0026 BEDSIDE GLUCOSE mg/dL -- -- -- 110* -- GLUCOSE mg/dL 127* 149* 107* -- 103* Results from last 3 days Lab Units 09/21/2422909/20/2425809/19/24 0446 WBC x10E9/L 12.2* 8.9 9.2 HEMOGLOBIN g/dL 11.0* 11.0* 11.4* HEMATOCRIT % 33.6* 33.5* 34.9* PLATELETS X10E9/L 183 190 189 MCV fL 83 82 82 Results from last 3 days Lab Units 09/21/2422909/20/24 1114 09/20/2425809/19/24 0412 MAGNESIUM mg/dL 1.8 -- 1.8 2.4 IONIZED MAGNESIUM mmol/L -- 0.64 -- -- Results from last 3 days Lab Units 09/21/2422909/20/2425809/19/24 041 PHOSPHORUS mg/dL 2.7 3.5 5.8* CALCIUM, IONIZED mg/dL 5.1 5.2 -- Results from last 3 days Lab Units 09/19/24 0137 09/19/24 0123 09/19/24 0026 BILIRUBIN SORIN Negative -- -- BILIRUBIN, TOTAL mg/dL -- -- 0.4 BILIRUBIN URINE -- Negative -- Lab Results Component Value Date HGBA1C 5.4 09/19/2024 Lab Results Component Value Date IRON 56 09/19/2024 TIBC 309 09/19/2024 FERRITIN 130 09/19/2024 Lab Results Component Value Date IRONSAT 18 09/19/2024 Lab Results Component Value Date CHOL 151 08/29/2024 Lab Results Component Value Date CHDL 5.2 (H) 08/29/2024 Lab Results Component Value Date HDL 29 (L) 08/29/2024 Lab Results Component Value Date LDLCALC 100 08/29/2024 Lab Results Component Value Date TRIG 112 08/29/2024 Lab Results Component Value Date VERYLOWLIP 22 08/29/2024 Lab Results Component Value Date [id number] 517 09/19/2024 Lab Results Component Value Date FOLATE 13.1 09/19/2024 No results found for: VITD25 Comments (labs): hypernatremia (intentional 145-150), creatinine elevated but improving Medications/ Parenteral: D2.5% at 50 ml/hr, decadeon, pepcid Medications Prior to Admission Medication Sig Dispense Refill Last Dose/Taking acetaminophen (TYLENOL) 325 mg tablet Take 2 tablets (650 mg total) by mouth every 6 (six) hours as needed for pain. busPIRone (BUSPAR) 7.5 mg tablet Take 1 tablet (7.5 mg total) by mouth every 8 (eight) hours as needed (anxiety). metoprolol tartrate (LOPRESSOR) 25 mg tablet Take 0.5 tablets (12.5 mg total) by mouth in the morning and 0.5 tablets (12.5 mg total) before bedtime. Do all this for 30 days. mirtazapine (REMERON CANDI-TAB) 15 mg disintegrating tablet Dissolve 1 tablet (15 mg total) on tongue nightly. Current Facility-Administered Medications Medication Dose Route Frequency Provider Last Rate Last Admin acetaminophen (TYLENOL) tablet 650 mg 650 mg oral Q6H PRN MARCELLE Spencer Or acetaminophen (TYLENOL) 650 mg/20.3 mL solution 650 mg 650 mg nasogastric Q6H PRN MARCELLE Spencer bisacodyL (DULCOLAX) suppository 10 mg 10 mg rectal Daily PRN MARCELLE Spencer calcium gluconate 3,000 mg in sodium chloride 0.9 % 100 mL IVPB 3,000 mg intravenous PRN Steffanie Lozano APRN-REGENERATOR OPERATOR calcium gluconate 4,000 mg in sodium chloride 0.9 % 250 mL IVPB 4,000 mg intravenous PRN Steffanie Lozano APRN-RUBINA calcium gluconate IVPB 2000 mg/100 mL (20 mg/mL premix) 2,000 mg intravenous PRN Steffanie Lozano APRN-REGENERATOR OPERATOR dexAMETHasone (DECADRON) injection 4 mg 4 mg intravenous Q6H [facility] Chip Zarate APRN-REGENERATOR OPERATOR 4 mg at 09/21/24 0616 dextrose (GLUTOSE) 40 % gel 15 g 15 g oral PRN MARCELLE Spencer dextrose 2.5 % in water, 1,000 mL infusion 50-150 mL/hr intravenous Continuous Steffanie Lozano APRN-REGENERATOR OPERATOR 50 mL/hr at 09/21/24 0426 50 mL/hr at 09/21/24 0426 dextrose 50 % in water (D50W) 50% solution 25 mL 25 mL intravenous PRN MARCELLE Spencer famotidine (PF) (PEPCID) injection 20 mg 20 mg intravenous Q48H MARCELLE Spencer 20 mg at 09/19/24 0851 glucagon HCL injection 1 mg 1 mg intramuscular PRN MARCELLE Spencer heparin (porcine) injection 5,000 Units 5,000 Units subcutaneous Q8H [facility] MARCELLE Spencer 5,000 Units at 09/21/24 0616 hydrALAZINE (APRESOLINE) injection 10 mg 10 mg intravenous Q6H PRN MARCELLE Spencer 10 mg at 09/20/242119 labetaloL (NORMODYNE,TRANDATE) injection 10 mg 10 mg intravenous Q4H PRN MARCELLE Spencer 10 mg at 09/20/24 203 levETIRAcetam (KEPPRA) IVPB 500 mg/100 mL in iso-osmotic sodium chloride (5 mg/mL premix) 500 mg intravenous Q12H Chip Zarate APRN-REGENERATOR OPERATOR Stopped at 09/21/24 0634 magnesium sulfate IVPB 2000 mg/50 mL in iso-osmotic water (40 mg/mL premix) 2,000 mg intravenous PRN JACQUELINE Hughes Stopped at 09/21/24 0527 magnesium sulfate IVPB 4000 mg/100 mL in iso-osmotic water (40 mg/mL premix) 4,000 mg intravenous PRN JACQUELINE Hughes polyethylene glycol (GLYCOLAX) packet 17 g 17 g oral Daily PRN MARCELLE Spencer potassium chloride (K-TAB,KLOR-CON) CR tablet 20-60 mEq 20-60 mEq oral PRN JACQUELINE Hughes Or potassium chloride (KAYCIEL) 20 mEq/15 mL solution 20-60 mEq 20-60 mEq oral PRN JACQUELINE Hughes Or potassium chloride IVPB 10 mEq/100 mL in water (0.1 mEq/mL premix) 10 mEq intravenous PRN JACQUELINE Hughes sennosides-docusate sodium (SENOKOT-S) 8.6-50 mg 2 tablet 2 tablet oral Nightly MARCELLE Spencer sodium phosphate 20 mmol in sodium chloride 0.9 % 250 mL IVPB 20 mmol intravenous PRN JACQUELINE Hughes Or sodium phosphate 20 mmol in sodium chloride 0.9 % 100 mL IVPB 20 mmol intravenous PRN JACQUELINE Hughes Or sod phos di, mono-K phos mono (K-PHOS NEUTRAL) 250 mg tablet 2 tablet 2 tablet oral PRN Steffanie Lozano APRN-RUBINA vancomycin (VANCOCIN) IVPB Dosed by Levels intravenous Dosed by JACQUELINE Cassidy Nutrition Focused Physical Findings +NG, confused Extremities, Muscles, and Bones A. Muscle Loss - appears WNL B. Loss of Subcutaneous Fat - appears WNL Skin (per nursing flow sheets): Skin Color: [place]; Pale (09/21/24 0800) Skin Temp: Cool; Clammy (09/21/24 08) Wound (per nursing flow sheets): Wound 09/19/24 Skin Tear Thigh Anterior;Left-Site Assessment: Unable to assess (dressing on) (09/21/24 0800) Wound 09/19/24 Pressure Injury Buttocks Left-Site Assessment: Unable to assess (dressing on) (09/21/24 0800) Gastrointestinal (per nursing flow sheets): Abdomen Assessment: Soft; Rounded; [place] ( Apron ); Obese (09/21/24 0800) Last BM Date: (hu) (09/20/24 193) Passing Flatus: Yes (09/20/24 0330) RUQ Bowel Sounds: Present (09/21/24 08) LUQ Bowel Sounds: Present (09/21/24 08) RLQ Bowel Sounds: Present (09/21/24 08) LLQ Bowel Sounds: Present (09/21/24 08) Edema (per nursing flow sheets): RLE Edema: +2 (09/21/24 08) LLE Edema: +2 (09/21/24799) Intake/ Output Last 24 hrs: Intake/Output Summary (Last 24 hours) at 09/21/2024 1032 Last data filed at 09/21/2024 0619 Gross per 24 hour Intake 2280.02 ml Output 1975 ml Net 305.02 ml Food/Nutrition Related History: Diet History: unable to obtain Nutrition Knowledge/Beliefs/Attitudes: not appropriate Allergies: No Known Allergies Diet/ Nutrition Order Review: Dietary Orders (From admission, onward) Start Ordered 09/19/244 Adult diet NPO Diet effective now Question: Diet Type: Answer: NPO 09/19/24414 Diet Intakes: NPO start 09/18 Anthropometrics: Ht Readings from Last 1 Encounters: 08/28/24 170.2 cm (5' 7 ) Wt Readings from Last 20 Encounters: 09/21/24 118.5 kg (261 lb 3.9 oz) 09/01/24 122.4 kg (269 lb 14.4 oz) Per Care Everywhere 127 kg (280 lb 6.4 oz) 07/07/2024 Last 3 Weight Readings 09/19/24 0400 09/20/24 0200 09/21/24 0000 Weight: 119.4 kg (263 lb 3.7 oz) 120.3 kg (265 lb 3.4 oz) 118.5 kg (261 lb 3.9 oz) Admit Weight: 119.4kg (Bed Scale, 09/19/24) Usual Body Weight: see above for wt trends [place] Body Weight: 61.4kg Percent [place] Body Weight: 193% Weight Changes: 8.5kg loss/3 months (7%) Body Mass Index: Body mass index is 40.92 kg/m . BMI Category: Obese class 3 (> or = 40.00) Comparative Standards: Estimated Energy Needs: 2829-2229 kcals daily. Method and weight used: 28-32 kcal/kg IBW Estimated Protein Needs: 74-123 grams daily. Method and weight used: 1.2-2g protein/kg IBW Estimated Fluid Needs: 1780-4288 ml daily. Method weight used: 28-32 ml/kg IBW Comments: general needs Malnutrition Status: Malnutrition Present: need more information NUTRITION DIAGNOSIS: Clinical Diagnosis: Swallowing difficulty (NC 1.1) related to altered mentation as evidenced by inability to follow commands to swallow, NPO x3 days. NUTRITION INTERVENTIONS: Enteral & parenteral nutrition: will order TF of Osmolite 1.2 goal 65 ml/hr to provide 98g protein, 1872 kcal, 1279 ml free water daily. Coordination of nutrition care: spoke with MOE Mcgarry GOAL(S): meet estimated protein/kcal needs NUTRITION MONITORING AND EVALUATION: TF tolerance, weight/lab trends, POC Whit Parker RD, LD Clinical Dietitian Direct Line Associated Order(s): IP CONSULT TO UROLOGY Images from the original note were not included. Enid Eaton Jr., MD, Rene Lino MD, Eliazar Lockwood MD, Jose Carlos Buenrostro MD, Laura Gunn MD, Steffanie Russell MD, Rivera Cruz MD, Raz Eid MD, Ashu Majano MD Urology Consult Note Patient: Anupama Vasquez Date of : 1970 CHIEF COMPLAINT: High volume urinary retention HISTORY OF PRESENT ILLNESS: The patient is a 54 y.o. 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 Urology has been consulted for high volume urinary retention after Alexis catheter was placed for 1.5 L. Labs today showing WBC 9.2, hemoglobin 11.4, creatinine 7.54 from 9.65 (baseline 0.87). UA showing large blood, small leukocyte esterase and negative nitrites. Retroperitoneal ultrasound from today showing mild bilateral hydroureteronephrosis. On evaluation, patient is afebrile and hemodynamically stable. Patient is completely confused and is unable to provide any significant past medical history. Per chart, no urologic history/never seen a urologist. Patient's old records, notes and chart reviewed and summarized above. Past Medical History: Past Medical History: Diagnosis Date MS (multiple sclerosis) ([facility]) 2012 Past Surgical History: Past Surgical History: Procedure Laterality Date CARPAL TUNNEL RELEASE Left SHOULDER ARTHROSCOPY W/ ROTATOR CUFF REPAIR Left Medications: Scheduled Meds: dexAMETHasone, 4 mg, intravenous, Q6H [place] famotidine, 20 mg, intravenous, Q48H [START ON 09/20/2024] heparin (porcine), 5,000 Units, subcutaneous, Q8H [place] levETIRAcetam, 500 mg, intravenous, Q12H sennosides-docusate sodium, 2 tablet, oral, Nightly Continuous Infusions: dextrose 2.5 % in water, 1,000 mL infusion, 50-150 mL/hr, Last Rate: 125 mL/hr (09/19/24 0605) dextrose 5 % in water, 100 mL/hr sodium chloride 0.9 %, 10 mL/hr sodium chloride 0.9 %, 10 mL/hr sodium chloride 0.9 %, 10 mL/hr PRN Meds:. acetaminophen OR acetaminophen bisacodyL calcium gluconate calcium gluconate calcium gluconate dextrose dextrose 5 % in water dextrose 50 % in water (D50W) glucagon (human recombinant) hydrALAZINE labetalol magnesium sulfate magnesium sulfate polyethylene glycol potassium chloride OR potassium chloride OR potassium chloride IV (Adult) sodium phosphate IV OR sodium phosphate IV - central line OR sod phos di, mono-K phos mono sodium chloride 0.9 % sodium chloride 0.9 % sodium chloride 0.9 % Allergies: Patient has no known allergies. Social History: Social History Socioeconomic History Marital status: Unknown Spouse name: Not on file Number of children: Not on file Years of education: Not on file Highest education level: Not on file Occupational History Not on file Tobacco Use Smoking status: Some Days Current packs/day: 0.50 Types: Cigarettes Smokeless tobacco: Never Substance and Sexual Activity Alcohol use: Never Drug use: Not on file Sexual activity: Defer Other Topics Concern Not on file Social History Narrative Not on file Social Drivers of Health Financial Resource Strain: High Risk (06/04/2023) Received from [facility] Overall Financial Resource Strain (CARDIA) Difficulty of Paying Living Expenses: Very hard Food Insecurity: No Food Insecurity (09/16/2024) Hunger Screening Food Insecurity - Worry: Never True Food Insecurity - Inability: Never True Transportation Needs: No Transportation Needs (08/28/2024) PRAPARE - Transportation Lack of Transportation (Medical): No Lack of Transportation (Non-Medical): No Physical Activity: Sufficiently Active (06/04/2023) Received from [facility] Exercise Vital Sign Days of Exercise per Week: 4 days Minutes of Exercise per Session: 40 min Stress: No Stress Concern Present (06/04/2023) Received from [facility] [place] [employer] - Occupational Stress Questionnaire Feeling of Stress : Only a little Social Connections: Moderately Integrated (06/04/2023) Received from [facility] Social Connection and Isolation Panel [NHANES] Frequency of Communication with Friends and Family: Twice a week Frequency of Social Gatherings with Friends and Family: Once a week Attends Faith Services: 1 to 4 times per year Active Member of Clubs or Organizations: No Attends Club or Organization Meetings: Never Marital Status: Interpersonal Safety: Not At Risk (08/28/2024) Humiliation, Afraid, Rape, and Kick questionnaire Fear of Current or Ex-Partner: No Emotionally Abused: No Physically Abused: No Sexually Abused: No Housing Instability: Low Risk (08/28/2024) Housing Instability Housing Instability: No Family History: Family History Problem Relation Age of Onset Stroke Mother REVIEW OF SYSTEMS: Review of Systems negative unless otherwise stated in the HPI Physical Exam: This a 54 y.o. patient Patient Vitals for the past 24 hrs: BP Temp Temp src Pulse Resp SpO2 Weight 09/19/24 1106 -- 37.3 C (99.1 F) Oral -- -- -- -- 09/19/24 1100 (!) 148/92 -- -- 95 20 -- -- 09/19/24 1000 (!) 143/97 -- -- 97 20 -- -- 09/19/24 0900 (!) 138/93 -- -- 94 19 -- -- 09/19/24 0800 (!) 145/98 -- -- 92 21 -- -- 09/19/24 0726 -- 36.9 C (98.4 F) Axillary -- -- -- -- 09/19/24 0700 (!) 145/95 -- -- 92 20 -- -- 09/19/24 0600 (!) 139/94 -- -- 94 23 -- -- 09/19/24 0516 141/86 -- -- 93 21 95 % -- 09/19/24 0500 (!) 150/94 -- -- 98 25 92 % -- 09/19/24 0443 (!) 163/95 -- -- 102 (!) 26 90 % -- 09/19/24 0400 (!) 150/124 37.3 C (99.1 F) Oral 103 16 94 % 119.4 kg (263 lb 3.7 oz) 09/19/24 0330 124/88 -- -- 107 -- 95 % 122.4 kg (269 lb 13.5 oz) 09/19/24 0215 131/57 -- -- 101 -- 95 % -- 09/19/24 0045 130/78 -- -- 103 -- 94 % -- 09/19/24 0005 121/73 36.7 C (98.1 F) -- 98 11 96 % -- Physical Exam Constitutional: General: She is not in acute distress. Appearance: She is obese. Cardiovascular: Rate and Rhythm: Normal rate. Pulses: Normal pulses. Pulmonary: Effort: Pulmonary effort is normal. Abdominal: General: Abdomen is flat. There is no distension. Palpations: Abdomen is soft. Tenderness: There is no abdominal tenderness. There is no right CVA tenderness or left CVA tenderness. LABS: Results from last 7 days Lab Units 09/19/24 0446 09/19/24 0026 WBC x10E9/L 9.2 10.3 HEMOGLOBIN g/dL 11.4* 11.5* HEMATOCRIT % 34.9* 34.9* PLATELETS X10E9/L 189 199 Results from last 7 days Lab Units 09/19/24 0412 09/19/24 0026 POTASSIUM mmol/L 4.5 4.3 4.6 CHLORIDE mmol/L 120* 119* 120* CO2 mmol/L 22 22 14* BUN mg/dL 81* 91* CREATININE mg/dL 7.54* 9.65* GLUCOSE mg/dL 107* 103* CALCIUM mg/dL 9.2 9.3 No results found for: PSA Additional Lab/culture results: Microbiology Results Procedure Component Value Units Date/Time Blood culture [[id number]] Collected: 09/19/24 0123 Specimen: Blood, Venous Updated: 09/19/24134 Blood culture [[id number]] Collected: 09/19/24 002 Specimen: Blood, Venous Updated: 09/19/2444 Urinalysis: Lab Results Component Value Date COLOR Colorless 09/19/2024 TURBIDITY Hazy (A) 09/19/2024 SPECIFICGRA 1.020 09/19/2024 SPECIFICGRA 1.013 09/19/2024 NITRITE Negative 09/19/2024 PHURINE 5.5 09/19/2024 LEUKOCYTE Negative 09/19/2024 LEUKOCYTE Small (A) 09/19/2024 PROTEIN 70 mg/dL (A) 09/19/2024 KETONES Negative 09/19/2024 UROBILINOGEN 0.2 E.U./dL 09/19/2024 UROBILINOGEN <1.1 eu/dL 09/19/2024 BLOODHGB Moderate (A) 09/19/2024 Imaging Results: Ultrasound retroperitoneal complete US RETROPERITONEAL COMPLETE HISTORY: Acute renal failure, renal size evaluation, rule out hydronephrosis. COMPARISON: None. TECHNIQUE: Grayscale and color Doppler sonographic images of the urinary bladder and both kidneys. FINDINGS: Right kidney: * 10.6 x 5.3 x 6.1 cm. Cortex: 0.7 cm. Normal echogenicity. * There is a 0.4 cm echogenic focus within the right renal pelvis/proximal right ureter which demonstrates twinkle artifact, compatible with renal calculus. There is mild prominence of the right renal pelvis which measures 1.2 cm and proximal ureter which measures 0.9 cm. Left kidney: * 14.0 x 4.6 x 5.6 cm. Cortex: 0.7 cm. Normal echogenicity. * Mild prominence of the left renal pelvis which measures up to 2.1 cm. No evidence of contour deforming mass or calculi. Alexis catheter noted within the decompressed bladder. IMPRESSION: * Right nephrolithiasis measuring 0.4 cm with mild right hydronephrosis. * Mild left hydronephrosis without visualized calculus. Approved by Resident Tk Najera MD on 09/19/2024 6:30 AM I, Mao Varner MD have personally reviewed the image(s) and agree with and/or edited the report Finalized by Mao Varner MD on 09/19/2024 6:46 AM Assessment and Plan Impression: Anupama Vasquez is a 54 y.o. female who presents Active Problem List High volume urinary retention of 1.5 L associated with BRANDON and bilateral mild hydro ureteral nephrosis. Plan: Maintain Alexis catheter for at least 1 week given the high volume urinary retention Continue to monitor urinary output and trend creatinine daily, currently down trending If creatinine does not recover sufficiently we will discuss need for repeat imaging with repeat renal bladder ultrasound in 48-72 hours. UA negative Please notify urologic service the day prior to discharge for Alexis catheter recommendations and void trial instructions. HIRAM JONES MD 11:18 AM 09/19/2024 Cosigned by Enid Eaton Jr., MD at 09/20/2024 10:33 AM EDT Associated attestation - Enid Eaton Jr., MD - 09/20/2024 10:33 AM EDT Attending Attestation: I saw the patient. I participated and was physically present during the critical/more portions of the service. I was directly involved in the management and treatment plan of the patient. I reviewed the resident's note. Additional Notes/Findings: No tenderness on exam of the abdomen quite obese. Clear munira urine Alexis catheter. I provided independent interpretation of films and reports of retroperitoneal ultrasound, which does raise question of 4 mm right renal stone, not clearly evident to my view, as well as bilateral mild hydronephrosis. Impressions: 1. Right temporal brain mass with shift with very high volume urinary retention 1.5 L with the acute kidney injury creatinine 15.68 improved with Alexis catheter with mild bilateral hydronephrosis ultrasound 09/19/2024 2. By radiology report concern for 4 mm nonobstructing right renal stone retroperitoneal ultrasound 09/19/2024 Recommendations: 1. As above 2. check stone protocol CT to rule out stone. 3. Pending possible OR Saturday Neurosurgery. We will follow with you. Thank you very much. I appreciate being asked to help with this patient's care. Enid Eaton Jr., M.D. [facility] [phone] Associated Order(s): Consult Neurosurgery Images from the original note were not included. [facility] [address] [place] [address], [address] [place] [address] * NEUROSURGERY CONSULT NOTE DATE:09/19/2024 PATIENT'S NAME: Anupama Vasquez PATIENT'S PATIENT'S : 1970 NEUROSURGERY ATTENDING: Dr. Espinal REASON FOR CONSULT 4.1 cm right temporal lobe mass HISTORY OF PRESENT ILLNESS Anupama Vasquez is a 54 y.o. Unknown White or female with PMHx significant for multiple sclerosis, cognitive communication deficit, HTN who presented to an OSH from her rehab facility with c/o AMS. Of note, she was recently treated for rhabdomyolysis. CT Brain at OSH was significant for a 4.1 cm right temporal lobe mass for which neurosurgery was consulted. On exam, she is drowsy but easily arouses to voice. She was able to answer simple questions using yes or no and does follow basic commands. She is oriented to self only. ALLERGIES No Known Allergies MEDICATIONS Current Facility-Administered Medications: acetaminophen (TYLENOL) tablet 650 mg, 650 mg, oral, Q6H PRN OR acetaminophen (TYLENOL) 650 mg/20.3 mL solution 650 mg, 650 mg, nasogastric, Q6H PRN, MARCELLE Spencer bisacodyL (DULCOLAX) suppository 10 mg, 10 mg, rectal, Daily PRN, MARCELLE Spencer calcium gluconate 3,000 mg in sodium chloride 0.9 % 100 mL IVPB, 3,000 mg, intravenous, PRN, Miriam Church MD calcium gluconate 4,000 mg in sodium chloride 0.9 % 250 mL IVPB, 4,000 mg, intravenous, PRN, Miriam Church MD calcium gluconate IVPB 2000 mg/100 mL (20 mg/mL premix), 2,000 mg, intravenous, PRN, Miriam Church MD dexAMETHasone (DECADRON) injection 4 mg, 4 mg, intravenous, Q6H FELTON, Chip Zarate, [employer], 4 mg at 09/19/24 1326 dextrose (GLUTOSE) 40 % gel 15 g, 15 g, oral, PRN, MARCELLE Spencer dextrose 2.5 % in water, 1,000 mL infusion, 50-150 mL/hr, intravenous, Continuous, Miriam Church MD, Last Rate: 75 mL/hr at 09/19/24 1324, 75 mL/hr at 09/19/24 1324 dextrose 5 % (D5W) infusion, 100 mL/hr, intravenous, Continuous PRN, MARCELLE Spencer dextrose 50 % in water (D50W) 50% solution 25 mL, 25 mL, intravenous, PRN, MARCELLE Spencer famotidine (PF) (PEPCID) injection 20 mg, 20 mg, intravenous, Q48H, MARCELLE Spencer, 20 mg at 09/19/24 0851 glucagon HCL injection 1 mg, 1 mg, intramuscular, PRN, MARCELLE Spencer [START ON 09/20/2024] heparin (porcine) injection 5,000 Units, 5,000 Units, subcutaneous, Q8H FELTON, MARCELLE Spencer hydrALAZINE (APRESOLINE) injection 10 mg, 10 mg, intravenous, Q6H PRN, MARCELLE Spencer labetaloL (NORMODYNE,TRANDATE) injection 10 mg, 10 mg, intravenous, Q4H PRN, MARCELLE Spencer levETIRAcetam (KEPPRA) IVPB 500 mg/100 mL in iso-osmotic sodium chloride (5 mg/mL premix), 500 mg, intravenous, Q12H, Chip Zarate, [facility], Stopped at 09/19/24 0910 magnesium sulfate IVPB 2000 mg/50 mL in iso-osmotic water (40 mg/mL premix), 2,000 mg, intravenous, PRN, Miriam Church MD magnesium sulfate IVPB 4000 mg/100 mL in iso-osmotic water (40 mg/mL premix), 4,000 mg, intravenous, PRN, Miriam Church MD polyethylene glycol (GLYCOLAX) packet 17 g, 17 g, oral, Daily PRN, MARCELLE Spencer potassium chloride (K-TAB,KLOR-CON) CR tablet 20-60 mEq, 20-60 mEq, oral, PRN OR potassium chloride (KAYCIEL) 20 mEq/15 mL solution 20-60 mEq, 20-60 mEq, oral, PRN OR potassium chloride IVPB 10 mEq/100 mL in water (0.1 mEq/mL premix), 10 mEq, intravenous, PRN, Miriam Church MD sennosides-docusate sodium (SENOKOT-S) 8.6-50 mg 2 tablet, 2 tablet, oral, Nightly, MARCELLE Spencer sodium phosphate 20 mmol in sodium chloride 0.9 % 250 mL IVPB, 20 mmol, intravenous, PRN OR sodium phosphate 20 mmol in sodium chloride 0.9 % 100 mL IVPB, 20 mmol, intravenous, PRN OR sod phos di, mono-K phos mono (K-PHOS NEUTRAL) 250 mg tablet 2 tablet, 2 tablet, oral, PRN, Miriam Church MD sodium chloride 0.9 % infusion, 10 mL/hr, intravenous, Continuous PRN, MARCELLE Spencer sodium chloride 0.9 % infusion, 10 mL/hr, intravenous, Continuous PRN, MARCELLE Spencer sodium chloride 0.9 % infusion, 10 mL/hr, intravenous, Continuous PRN, MARCELLE Spencer PAST MEDICAL AND SURGICAL HISTORY Past Medical History: Diagnosis Date MS (multiple sclerosis) ([facility]) 2013 Past Surgical History: Procedure Laterality Date CARPAL TUNNEL RELEASE Left SHOULDER ARTHROSCOPY W/ ROTATOR CUFF REPAIR Left FAMILY HISTORY Family History Problem Relation Age of Onset Stroke Mother SOCIAL HISTORY Occupation: unknown Tobacco Use: unknown Alcohol Use: unknown Drug Use: unknown Marital Status: unknown Children: unknown REVIEW OF SYSTEMS Review of Systems Unable to perform ROS: Mental status change PHYSICAL EXAMINATION Temp: [36.7 C (98.1 F)-37.3 C (99.1 F)] 37.3 C (99.1 F) Pulse: [92-107] 95 Resp: [11-26] 20 BP: (121-163)/(57-124) 148/92 SpO2: [90 %-96 %] 95 % O2 Device: Nasal cannula O2 Flow Rate (L/min): [2 L/min] 2 L/min Physical Exam Constitutional: Appearance: She is overweight. She is ill-appearing. Interventions: Nasal cannula in place. HENT: Head: Normocephalic and atraumatic. Eyes: Extraocular Movements: Extraocular movements intact. Pupils: Right eye: Pupil is not sluggish. Left eye: Pupil is not sluggish. Comments: 5mm Cardiovascular: Rate and Rhythm: Normal rate and regular rhythm. Pulmonary: Effort: Pulmonary effort is normal. No respiratory distress. Skin: General: Skin is warm and dry. Neurological: Mental Status: She is easily aroused. Cranial Nerves: No facial asymmetry. Motor: Weakness present. No abnormal muscle tone. Comments: Drowsy, awakens to voice but quickly falls back asleep Able to shrug shoulders bilaterally, R>L Unable to lift BLE off bed against gravity Weak hand grasp bilaterally 3/5 Wiggles toes and attempts to bend knees on command LABORATORY DATA Results from last 7 days Lab Units 09/19/24 1223 09/19/24 0446 09/19/24 0412 09/19/24 0026 SODIUM mmol/L 152* -- 159* 156* 151* POTASSIUM mmol/L 4.5 -- 4.5 4.3 4.6 CREATININE mg/dL -- -- 7.54* 9.65* GLUCOSE mg/dL -- -- 107* 103* CALCIUM mg/dL -- -- 9.2 9.3 APTT sec -- -- -- 28 INR -- -- -- 1.2 WBC x10E9/L -- 9.2 -- 10.3 HEMATOCRIT % -- 34.9* -- 34.9* HEMOGLOBIN g/dL -- 11.4* -- 11.5* PLATELETS X10E9/L -- 189 -- [address] IMAGING CTB from OSH radiology read unavailable MRI IMAGING MRI Synaptive pending ASSESSMENT 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 Espinal. Plan for OR Saturday for craniotomy for tumor excision. Will obtain consent from family prior to. - Start decadron 4mg q6h for cerebral edema - Start Keppra 500 mg BID for seizure ppx - Sodium goal 145-150 - Serial neuro checks - Remainder of care per ICU and additional consultants BELEM Edward- [facility] Please contact via [employer] first then can utilize Patient touch/VoceraEdge if needed 09/19/24 3:10 PM To find out which DIANE is on for the day please go to [employer] and use log in Parking Panda and search for [facility] (DIANE and Phone Number is listed) - JACQUELINE VAZQUEZ 09/19/24 2:53 PM JACQUELINE Vazquez 09/19/24 1511 Images from the original note were not included. Consults NEPHROLOGY CONSULT NOTE Date of Admission: 09/18/2024 11:59 PM Reason for Consult: acute kidney injury and hypernatremia Referring Provider: Dr Lewis Botello PCP: JACQUELINE LUNA Chief Complaint: Unable to obtain. The patient is currently drowsy sleepy unable to obtain any meaningful history from the patient. Parts of this history physical exam was obtained by review of electronic medical record. Family members are not available for collaboration of information. History of Present Illness: Anupama Vasquez is a 54 y.o. female who was sent to emergency room for altered mental status. The patient apparently was seen at [facility] for altered mental status. She was found to have acute kidney injury with a creatinine 14.8. CT revealed a 4.1 cm right temporal mass with midline shift. The patient was found to have acute urine retention. Alexis catheter was placed. She was transferred to [facility] for further evaluation management and neurosurgical evaluation of the Brain mass. The patient has a baseline creatinine of about 0.87 from September 01, 2024. Creatinine on presentation to emergency room was 9.6 and from today creatinine is 7.54. Sodium was 159, potassium 4.5, chloride 120, CO2 22, calcium 9.2, magnesium 2.4 and phosphorus was 5.8. Alexis catheter was placed. Hypotonic fluids were ordered. The patient was admitted to the hospital for further evaluation management. Past Medical and Surgical History: Acute kidney injury secondary to acute urine retention from September of 2024. Renal ultrasound revealed right kidney of 10.6 cm left kidney of 14.0 cm with right-sided kidney stone with mild hydronephrosis on the right and left side. From September of 2024 MAGI anti MPO anti PR3 and anti-GBM are pending, serum protein electrophoresis is pending, C3 was 196 and C4 was 42, CPK was 18, urine dipstick revealed 100 mg/dL protein moderate blood fractional excretion of sodium was 5.2% and random urine protein to creatinine ratio was 1.6 grams/gram. Acute urine retention Right temporal 4.1 brain mass with [id number] 60 mm shift with surrounding edema from September of 2024 Multiple sclerosis Left carpal tunnel release Left shoulder arthroscopy Allergies: No Known Allergies Home Meds: Medications Prior to Admission Medication Sig Dispense Refill Last Dose/Taking acetaminophen (TYLENOL) 325 mg tablet Take 2 tablets (650 mg total) by mouth every 6 (six) hours as needed for pain. busPIRone (BUSPAR) 7.5 mg tablet Take 1 tablet (7.5 mg total) by mouth every 8 (eight) hours as needed (anxiety). metoprolol tartrate (LOPRESSOR) 25 mg tablet Take 0.5 tablets (12.5 mg total) by mouth in the morning and 0.5 tablets (12.5 mg total) before bedtime. Do all this for 30 days. mirtazapine (REMERON CANDI-TAB) 15 mg disintegrating tablet Dissolve 1 tablet (15 mg total) on tongue nightly. Current medications: dexAMETHasone, 4 mg, intravenous, Q6H FELTON famotidine, 20 mg, intravenous, Q48H [START ON 09/20/2024] heparin (porcine), 5,000 Units, subcutaneous, Q8H FELTON levETIRAcetam, 500 mg, intravenous, Q12H sennosides-docusate sodium, 2 tablet, oral, Nightly Social History: Social History Socioeconomic History Marital status: Unknown Spouse name: Not on file Number of children: Not on file Years of education: Not on file Highest education level: Not on file Occupational History Not on file Tobacco Use Smoking status: Some Days Current packs/day: 0.50 Types: Cigarettes Smokeless tobacco: Never Substance and Sexual Activity Alcohol use: Never Drug use: Not on file Sexual activity: Defer Other Topics Concern Not on file Social History Narrative Not on file Social Drivers of Health Financial Resource Strain: High Risk (06/04/2023) Received from [facility] Overall Financial Resource Strain (CARDIA) Difficulty of Paying Living Expenses: Very hard Food Insecurity: No Food Insecurity (09/16/2024) Hunger Screening Food Insecurity - Worry: Never True Food Insecurity - Inability: Never True Transportation Needs: No Transportation Needs (08/28/2024) PRAPARE - Transportation Lack of Transportation (Medical): No Lack of Transportation (Non-Medical): No Physical Activity: Sufficiently Active (06/04/2023) Received from [facility] Exercise Vital Sign Days of Exercise per Week: 4 days Minutes of Exercise per Session: 40 min Stress: No Stress Concern Present (06/04/2023) Received from [facility] [place] [employer] - Occupational Stress Questionnaire Feeling of Stress : Only a little Social Connections: Moderately Integrated (06/04/2023) Received from [facility] Social Connection and Isolation Panel [NHANES] Frequency of Communication with Friends and Family: Twice a week Frequency of Social Gatherings with Friends and Family: Once a week Attends Faith Services: 1 to 4 times per year Active Member of Clubs or Organizations: No Attends Club or Organization Meetings: Never Marital Status: Interpersonal Safety: Not At Risk (08/28/2024) Humiliation, Afraid, Rape, and Kick questionnaire Fear of Current or Ex-Partner: No Emotionally Abused: No Physically Abused: No Sexually Abused: No Housing Instability: Low Risk (08/28/2024) Housing Instability Housing Instability: No Family History: Family History Problem Relation Age of Onset Stroke Mother Review of Systems: Unable to obtain. The patient is currently drowsy. Physical Exam Vitals: 09/19/24 0516 09/19/24 0600 09/19/24 0700 09/19/24 0726 BP: 141/86 (!) 139/94 (!) 145/95 Pulse: 93 94 92 Resp: 21 23 20 Temp: 36.9 C (98.4 F) TempSrc: Axillary SpO2: 95% Weight: INTAKE/OUTPUT: Intake/Output Summary (Last 24 hours) at 09/19/2024 0913 Last data filed at 09/19/2024 0858 Gross per 24 hour Intake 216.54 ml Output 3125 ml Net -2908.46 ml I/O this shift: In: - Out: 725 [Urine:725] Vital Signs: Blood pressure (!) 145/95, pulse 92, temperature 36.9 C (98.4 F), temperature source Axillary, resp. rate 20, weight 119.4 kg (263 lb 3.7 oz), SpO2 95%. Respiratory Source: O2 Device: Nasal cannula Admission Weight: Weight: 122.4 kg (269 lb 13.5 oz) General appearance: Drowsy in no apparent distress. Psychiatric: drowsy difficult to obtain HEENT: atraumatic, supple, moist oral mucosa, no JVD Cardiovascular: normal S1-S2 Respiratory: No respiratory distress with no use of accessory muscles. Clear to auscultation bilaterally with no wheezes or crackles Abdomen: obese, soft, no tenderness, no guarding, positive bowel sounds and no hepato or splenomegaly Cardiovascular: no edema Vascular: adequate pulses and no carotid bruits. Musculoskeletal: no joint swelling or tenderness. Neurologic: drowsy not following any commands mumbling answers Lymphatic: no cervical or axillary lymphadenopathy. Laboratory Workup: Results from last 7 days Lab Units 09/19/24 0412 09/19/24 0026 SODIUM mmol/L 159* 156* 151* POTASSIUM mmol/L 4.5 4.3 4.6 CHLORIDE mmol/L 120* 119* 120* CO2 mmol/L 22 22 14* ANION GAP mmol/L 17* 15 17* BUN mg/dL 81* 91* CREATININE mg/dL 7.54* 9.65* CALCIUM mg/dL 9.2 9.3 MAGNESIUM mg/dL 2.4 -- PHOSPHORUS mg/dL 5.8* -- Results from last 7 days Lab Units 09/19/24 0137 09/19/24 0123 09/19/24 0026 PROTEIN TOTAL g/dL -- -- 6.8 ALBUMIN g/dL -- -- 3.4 AST U/L -- -- 8 ALT U/L -- -- 4 BILIRUBIN SORIN Negative -- -- BILIRUBIN, TOTAL mg/dL -- -- 0.4 BILIRUBIN URINE -- Negative -- ALK PHOS U/L -- -- 73 Results from last 7 days Lab Units 09/19/24 0446 09/19/24 0026 WBC x10E9/L 9.2 10.3 HEMOGLOBIN g/dL 11.4* 11.5* HEMATOCRIT % 34.9* 34.9* PLATELETS X10E9/L 189 199 No results found for: IRON , TIBC , FERRITIN , IRONSAT Results from last 7 days Lab Units 09/19/24 0412 09/19/24 0026 GLUCOSE mg/dL 107* 103* Results from last 7 days Lab Units 09/19/24 0412 09/19/24 0026 CPK ISOENZYMES U/L 18* 18* Urine Lab Results Component Value Date COLOR Colorless 09/19/2024 TURBIDITY Hazy (A) 09/19/2024 SPECIFICGRA 1.020 09/19/2024 SPECIFICGRA 1.013 09/19/2024 NITRITE Negative 09/19/2024 PHURINE 5.5 09/19/2024 LEUKOCYTE Negative 09/19/2024 LEUKOCYTE Small (A) 09/19/2024 PROTEIN 70 mg/dL (A) 09/19/2024 KETONES Negative 09/19/2024 UROBILINOGEN 0.2 E.U./dL 09/19/2024 UROBILINOGEN <1.1 eu/dL 09/19/2024 BLOODHGB Moderate (A) 09/19/2024 Lab Results Component Value Date URINECREATI 83.54 09/19/2024 URINECREATI 83.54 09/19/2024 PROTUR 1,350 (H) 09/19/2024 Immunology Profile Lab Results Component Value Date C3 196 (H) 09/19/2024 C4 42 09/19/2024 No results found for: HAV , HEPAIGM , HEPBIGM , HEPBCAB , HBEAG , HEPCAB Imaging: Chest x-ray negative for acute intrathoracic process. Renal ultrasound which revealed mild bilateral hydronephrosis. Impression and Plan: 1. Acute kidney injury likely related to acute urine retention. Creatinine has improved significantly overnight. Advise avoiding nephrotoxins such as NSAIDs and IV contrast. Advise avoiding hypotension. 2. Acute urine retention: Alexis catheter was placed. Urology will be consulted. 3. Hypernatremia: The goal is to keep her sodium about 150 per neurosurgery. Will continue to follow electrolytes every 8 hours. Continue to titrate D2.5 W accordingly to goal sodium level of 150. 4. Elevated anion gap metabolic acidosis: Corrected with sodium bicarbonate per IV. 5. Anemia: Iron studies B12 and folate will be ordered. 6. Brain mass: Neurosurgery is following. Thank you for your consultation and allowing us to participate in the care of Anupama Vasquez and please do not hesitate to call us with any questions at: Office: [phone] Office Answering Service: [phone] Miriam Church M.D. This note was created with the assistance of a speech-recognition program. Although the intention is to generate a document that actually reflects the content of the visit, no guarantees can be provided that every mistake has been identified and corrected by editing. documented in this encounter [facility] 09-19-2024 Emergency department Note Arrives via flight from [facility]. From a SNF, sent here for altered mental status and abnormal CT results, pt is alert but not oriented. Images from the original note were not included. [facility] - EMERGENCY DEPARTMENT Pt Name: Anupama Vasquez Birthdate: 1970 Chief Complaint: No chief complaint on file. History of Present Illness: Patient is a 54-year-old female with a past medical history much per sclerosis who was recently treated for urinary retention and was found to have a brain mass with altered mental status who was transferred via flight EMS for neurosurgery consultation. Per records brought by EMS from [facility] ED patient was seen for urinary retention with GFR of 14.85, altered mental status, patient had a CT done which revealed 4.1 cm right temporal brain mass with [id number] 60 mm shift which includes surrounding edema. Patient is protected airway is able to communicate. History provided by: Patient Past Medical History: Past Medical History: Diagnosis Date MS (multiple sclerosis) ([facility]) 2012 Past Surgical History: Past Surgical History: Procedure Laterality Date CARPAL TUNNEL RELEASE Left SHOULDER ARTHROSCOPY W/ ROTATOR CUFF REPAIR Left Family History: Family History Problem Relation Age of Onset Stroke Mother Social History: Social History Socioeconomic History Marital status: Unknown Tobacco Use Smoking status: Some Days Current packs/day: 0.50 Types: Cigarettes Smokeless tobacco: Never Substance and Sexual Activity Alcohol use: Never Sexual activity: Defer Social Drivers of Health Financial Resource Strain: High Risk (06/04/2023) Received from [facility] Overall Financial Resource Strain (CARDIA) Difficulty of Paying Living Expenses: Very hard Food Insecurity: No Food Insecurity (09/16/2024) Hunger Screening Food Insecurity - Worry: Never True Food Insecurity - Inability: Never True Transportation Needs: No Transportation Needs (08/28/2024) PRAPARE - Transportation Lack of Transportation (Medical): No Lack of Transportation (Non-Medical): No Physical Activity: Sufficiently Active (06/04/2023) Received from [facility] Exercise Vital Sign Days of Exercise per Week: 4 days Minutes of Exercise per Session: 40 min Stress: No Stress Concern Present (06/04/2023) Received from [facility] [place] [employer] - Occupational Stress Questionnaire Feeling of Stress : Only a little Social Connections: Moderately Integrated (06/04/2023) Received from [facility] Social Connection and Isolation Panel [NHANES] Frequency of Communication with Friends and Family: Twice a week Frequency of Social Gatherings with Friends and Family: Once a week Attends Faith Services: 1 to 4 times per year Active Member of Clubs or Organizations: No Attends Club or Organization Meetings: Never Marital Status: Interpersonal Safety: Not At Risk (08/28/2024) Humiliation, Afraid, Rape, and Kick questionnaire Fear of Current or Ex-Partner: No Emotionally Abused: No Physically Abused: No Sexually Abused: No Housing Instability: Low Risk (08/28/2024) Housing Instability Housing Instability: No Review of Systems: Review of Systems Physical Exam: ED Triage Vitals Temp Pulse Resp BP SpO2 -- -- -- -- -- Temp src Heart Rate Source Patient Position BP Location FiO2 (%) -- -- -- -- -- There were no vitals filed for this visit. Physical Exam Vitals and nursing note reviewed. Constitutional: Appearance: She is obese. HENT: Head: Normocephalic and atraumatic. Mouth/Throat: Mouth: Mucous membranes are moist. Pharynx: Oropharynx is clear. Eyes: Extraocular Movements: Extraocular movements intact. Pupils: Pupils are equal, round, and reactive to light. Cardiovascular: Rate and Rhythm: Regular rhythm. Tachycardia present. Heart sounds: Normal heart sounds. Pulmonary: Effort: Pulmonary effort is normal. Breath sounds: Normal breath sounds. Abdominal: General: Bowel sounds are normal. Palpations: Abdomen is soft. Musculoskeletal: General: Normal range of motion. Cervical back: Normal range of motion and neck supple. Skin: General: Skin is warm and dry. Capillary Refill: Capillary refill takes less than 2 seconds. Neurological: Mental Status: She is alert. Procedure: Procedures Re-evaluation: Re-Evaluation Medical Decision Making Amount and/or Complexity of Data Reviewed Labs: ordered. ECG/medicine tests: ordered. ED Course: ED Course as of 09/19/24 0300 Sat September 19, 2024 0053 12:[address] Espinal neurosurgery, who reviewed case. At this time, they recommend admit patient to floor not neuro icu [EB] 0221 Per hospitalist: Consult Nephrology while patient is in the ED [EB] 0259 2:[address] Church, who reviewed case. At this time, they recommend ABG, hypotonic fluid, bicarb [EB] 0259 2:[address] Jung ICU, who reviewed case. At this time, they recommend admission to ICU and neurosurgery consult [EB] ED Course User Index [EB] Ken Ontiveros MD Clinical Impressions as of 09/19/24 0300 Altered mental status, unspecified altered mental status type BRANDON (acute kidney injury) Brain mass . ED Disposition None Teaching Visit 00:19 EDT ISotero(scribe), scribed for and in the presence of: Dr Lewis Botello who performed the above service. IDr. Botello saw the patient, was physically present during the critical and more portions of the service and was directly involved in the management and treatment plan of the patient. I reviewed the resident's documentation. Below are additional notes and findings. Additional Notes/Findings: Anupama Vasquez is a 54 y.o. F presenting to the ED as a transfer via flight EMS for a neurosurgery consult. Please note that portions of this note were completed with a voice recognition program. Efforts were made to edit the dictations but occasionally words are mis-transcribed. Ken Ontiveros MD Resident 09/19/24 0005 Sotero Castellanos 09/19/24 0028 Ken Ontiveros MD Resident 09/19/24 0327 Lewis Botello DO 09/19/24 0429 Bed: 28 Expected date: Expected time: Means of arrival: [facility] Comments: 52 female Brain mass Alerted mental Drowsie Left sided weakness 154/100 Eta 14 [place] tx Female Anupama Vasquez 54YO was recently treated for urinary retention. Further workup revealed a brain mass with shift. The patient is drowsy but awake and talking. Vital signs are stable. Dr. Espinal has been notified and asked that the patient be sent to the ER for evaluation. Sending requested flight: Flight accepted, will be to [place] at 2300. ETA to [facility] 2330-Midnight 56 SNF Hx of MS Sen t in for abnormal labs BUN and CREAT elevated Repeat has came down CT glioblastoma with mid line shift Alert Alexis in place 2200 output from Alexis 164/104 Triple lumen in neck 22g Flight left about 5 min documented in this encounter [facility]-16-[facility] History of Present illness Narrative Images from the original note were not included. Wound Care Progress Note Patient: Anupama Vasquez Date of : 1970 Chief Complaint: Wound on buttocks New patient evaluation SUBJECTIVE/HPI: Anupama is a 54 y.o. female who presents to [facility] for evaluation of 1 ulcer(s) on the left buttocks. Patient established with wound clinic on 09/16/2024. Current wound care includes: Presents to wound clinic with a urine saturated foam over the wound bed. Patient was recently hospitalized 08/28/2024 through 09/01/2024 with non traumatic rhabdomyolysis. It was determined that she does not have the capacity to care for herself in was discharged to a nursing facility. Measurable wound changes: New wound evaluation Patient accompanied by: Caregiver, patient arrives in wheelchair Nutritional screen shows patient does take in three servings of protein per day. Patient does deny fever, chills, sweats, or other signs of infection. Prescribed antibiotics: None Today's reported Blood Sugar: None applicable No results found for: HGBA1C Tobacco use: cigarette smoking occasional Contributing comorbid conditions: MS, limited mobility Labs/Imaging/Cardiovascular: Patient's chart was reviewed for all available supporting documentation, laboratory results and radiographic examination. 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 metoprolol tartrate (LOPRESSOR) 25 mg tablet Take 0.5 tablets (12.5 mg total) by mouth in the morning and 0.5 tablets (12.5 mg total) before bedtime. Do all this for 30 days. mirtazapine (REMERON CANDI-TAB) 15 mg disintegrating tablet Dissolve 1 tablet (15 mg total) on tongue nightly. acetaminophen (TYLENOL) 325 mg tablet Take 2 tablets (650 mg total) by mouth every 6 (six) hours as needed for pain. No current facility-administered medications for this visit. No Known Allergies The following portions of the patient's history were reviewed and updated as appropriate: allergies, current medications, past family history, past medical history, past social history, past surgical history, problem list, and medication reconciliation was completed including current medication and post discharge medication. Pain Scale: Pain Scale 0/10: 5 Review of Systems Constitutional: Negative. Negative for appetite change, chills and fever. HENT: Negative. Negative for trouble swallowing. Eyes: Negative. Respiratory: Positive for shortness of breath. Negative for cough and stridor. Cardiovascular: Negative. Negative for chest pain, palpitations and leg swelling. Gastrointestinal: Negative. Negative for abdominal distention, abdominal pain, nausea and vomiting. Genitourinary: Negative. Negative for dysuria, frequency and urgency. Musculoskeletal: Positive for back pain and gait problem. Skin: Positive for wound. Neurological: Positive for weakness and numbness. Objective: Vitals: 09/16/24 1314 BP: 147/85 Pulse: 74 Temp: 36 C (96.8 F) Physical Exam Vitals and nursing note reviewed. Constitutional: Appearance: She is well-developed. HENT: Head: Normocephalic and atraumatic. Cardiovascular: Rate and Rhythm: Normal rate and regular rhythm. Heart sounds: No murmur heard. No friction rub. Pulmonary: Effort: No respiratory distress. Breath sounds: Normal breath sounds. Abdominal: General: Bowel sounds are normal. Palpations: Abdomen is soft. Genitourinary: Comments: Urinary incontinence, brief changed Musculoskeletal: General: Normal range of motion. Cervical back: Normal range of motion. Skin: General: Skin is warm and dry. Neurological: Mental Status: She is oriented to person, place, and time. She is lethargic. Wound Assessment Wound 09/16/24 1 Buttocks Left (Active) Wound Image 09/16/24 1323 Site Assessment Yellow;[place] 09/16/24 1323 [place]-wound Assessment Blanchable erythema;[place] 09/16/24 1323 Wound Length (cm) 1 cm 09/16/24 1323 Wound Width (cm) 1 cm 09/16/24 1323 Wound Surface Area (cm^2) 0.79 cm^2 09/16/24 1323 Wound Depth (cm) 0.1 cm 09/16/24 132 Wound Volume (cm^3) 0.052 cm^3 09/16/24 132 Drainage Description Serous;Yellow 09/16/241322 Drainage Amount Small 09/16/24 132 Treatments Cleansed with;Soak with;Vashe/Hypochlorous Acid 09/16/241322 Wound Bed Granulation (%) 75% to 100% 09/16/241322 Wound Bed Slough (%) < 25% 09/16/241322 Assessment/Plan/Education: 1. Dermatitis associated with moisture 2. Pressure injury of left buttock, stage 2 (CMS-HCC) Wash area daily mild soap and water Apply TRIAD to wound and periwound to avoid incontinent urine and stool from sitting on skin Change brief when soiled, instructed patient to contact nursing staff when brief is soiled. Preventable Bundle Turn a minimum of every 2 hours while in bed. Therapeutic mattress and wheelchair cushion Pad and Protect bony prominences. Assess skin daily Patient instructed in Other: Wounds related to skin damage care to left and buttocks. Short term goal: medical compliance longterm goal: wound closure Patient verbalize understanding of treatment regimen and the importance of adherence. Follow up in wound clinic as needed. Nursing facility may call for an appointment should wound become difficult to manage. Instructed to contact wound clinic, PCP or ER should symptoms worsen. The patient was taught to watch for S/S of infection (redness, pus, pain, increased swelling, chills or fever) and to call the PCP or wound care clinic if such occurs. The patient was educated on offloading the area by avoiding direct pressure to the wound bed. Education as well as the pathophysiology of the disease process was provided on infection, edema, necrotic tissue and its relationship to nonhealing wounds. Education was also provided on treatment plan. Patient verbalized understanding. Total time spent was 20 minutes: Preparing to see the patient (e.g., review of tests) Obtaining and/or reviewing separately obtained history Performing a medically appropriate examination and/or evaluation Counseling and educating the patient/family/caregiver Documenting clinical information in the electronic or other health record - ADONAY CASTILLO APRN-REGENERATOR OPERATOR 09/16/24 1:40 PM Adonay Castillo APRN, URBINA, CWS, COCN [employer] [facility]: [phone] JACQUELINE Germain 09/16/24 0926 documented in this encounter [facility] 09-16-2024 Instructions Angela Chapa RN - 09/16/2024 1:20 PM EDT Wound Management Treatment Plan [facility] Wound Location(s): LEFT BUTTOCKS HOW TO CARE FOR YOUR WOUND The following should be performed Daily and as needed. STEP 1: Cleanse wound with Soap and water, rinse well, and pat dry. Irrigate or rinse wound with NO IRRIGATION REQUIRED. STEP 2: Soak wound with NO SOAK REQUIRED. STEP 3: Pack with NO PACKING REQUIRED STEP 4: Apply Triad Cream to wound bed. STEP 5: Cover wound with Gauze, avoid tape to skin, gauze should stay in place with the Triad and brief. Make sure she is not sitting in a wet brief. Abrasion on left medial thigh likely from pulling on brief should also be cleaned with soap and water, cover with a thin layer of Triad and cover with foam dressing daily. MAKE SURE PT IS ALWAYS SITTING ON A PRESSURE REDUCING CUSHION, SHE SHOULD GET OUT OF CHAIR AND LAY DOWN AT TIMES DURING THE DAY ALSO. ACTIVITY: Avoid direct pressure to wound(s) at all times NUTRITION: High protein diet ITEMS TO FOLLOW UP ON: None Length Width Depth Wound drainage Type Description small Serous serous documented in this encounter [facility] 08-18-2024 History of Present illness Narrative Associated Problem(s): Primary insomnia Would like to trial mirtazapine for sleep Pt states that her anxiety is threw the roof She has a friend that takes MIRTAZAPINE and told her that she feels amazing anupama would like to talk with you about trying this medication Images from the original note were not included. Anupama Vasquez is a 54 y.o. female presents [...] anxiety, states it helps her a lot. Anupama has taken elavil in the past, no [...] Date Abnormal CBC 07/30/2023 Anxiety and depression ([facility]) Carpal tunnel syndrome 2002 Chronic diarrhea Chronic shoulder pain 05/01/2023 Class 3 severe obesity without serious comorbidity with body mass index (BMI) of 45.0 to 49.9 in adult ([facility]) 04/30/2023 Constipation Depression ([facility]) Hot flashes 07/30/2023 Hyperlipidemia, acquired ([facility]) 07/30/2023 Hypertension ([facility]) Knee pain, left anterior Major depression ([facility]) Morbid obesity with BMI of 40.0-44.9, adult ([facility]) Multiple sclerosis ([facility]) Night sweats 07/30/2023 LORENZO (obstructive sleep apnea) 07/30/2023 Pain of left middle finger Primary insomnia Rash Rectal burning Right knee pain, unspecified chronicity Sinusitis Stroke ([facility]) 07/30/2023 Urinary incontinence in female Vaginal discharge Vitamin D deficiency Past Surgical History: Procedure Laterality Date CARPAL TUNNEL RELEASE Right 2004 ECTOPIC SURGERY HYSTERECTOMY 1991 SHOULDER SURGERY Left 02/10/2024 Arthroscopy, RCR @ [facility] w/ MTP TUBAL LIGATION 1990 family [...] and sugary drinks. documented in this encounter [facility] 08-18-2024 Instructions Fred Gracia NP - 08/18/2024 9:20 AM EDT Cont escitalopram 10mg daily, as well as the aripriazole 10mg daily Increase the buspirone from 5mg , to 7.5mg and you can take this every 8 hour NEEDED for anxiety We will add the mirtazipine for sleep I will refer you to [facility] in [place], they should call you documented in this encounter [facility] 08-03-2024 Telephone encounter Note Patient needs to reschedule appointment she missed today. She is [place] patient and was scheduled with [facility]. [facility] follow up visits are 30 minutes and new patients 40 minutes. This would be follow up visit. [facility] Work Phone: 08-03-2024 Miscellaneous Notes Patient needs to reschedule appointment she missed today. She is [place] patient and was scheduled with [facility]. [facility] follow up visits are 30 minutes and new patients 40 minutes. This would be follow up visit. documented in this encounter [facility] 06-17-2024 History of Present illness Narrative Associated Problem(s): Acute non-recurrent frontal sinusitis Sinus congestion X2 weeks Ear ache Has tried OTC regimens with no relief. Will treat with Doxycycline x7 days, Flonase and Zyrtec. Return to office if symptoms worsen or do not improve. Images from the original note were not included. Subjective Patient ID: Anupama Vasquez is a 54 y.o. female who [...] 10 MG tablet documented in this encounter [facility] 06-17-2024 Instructions Sherrie Boone NP - 06/17/2024 [...] this encounter [facility] 05-18-2024 History of Present illness Narrative Associated Problem(s): Generalized anxiety disorder [...] from the original note were not included. Anupama Vasquez is a 53 y.o. female presents [...] Date Abnormal CBC 07/30/2023 Anxiety and depression ([facility]) Carpal tunnel syndrome 2002 Chronic diarrhea Chronic shoulder pain 05/01/2023 Class 3 severe obesity without serious comorbidity with body mass index (BMI) of 45.0 to 49.9 in adult ([facility]) 04/30/2023 Constipation Depression ([facility]) Hot flashes 07/30/2023 Hyperlipidemia, acquired ([facility]) 07/30/2023 Hypertension ([facility]) Knee pain, left anterior Major depression ([facility]) Morbid obesity with BMI of 40.0-44.9, adult ([facility]) Multiple sclerosis ([facility]) Night sweats 07/30/2023 LORENZO (obstructive sleep apnea) 07/30/2023 Pain of left middle finger Primary insomnia Rash Rectal burning Right knee pain, unspecified chronicity Sinusitis Stroke ([facility]) 07/30/2023 Urinary incontinence in female Vaginal discharge Vitamin D deficiency Past Surgical History: Procedure Laterality Date CARPAL TUNNEL RELEASE Right 2004 ECTOPIC SURGERY HYSTERECTOMY 1991 SHOULDER SURGERY Left 02/10/2024 Arthroscopy, RCR @ [facility] w/ MTP TUBAL LIGATION 1990 family [...] (BMI) of 45.0 to 49.9 in adult ([facility]) Discussed with patient their BMI (actual, [...] takes meds sleeps 7 hours Multiple sclerosis ([facility]) Continue with neurology and treatment Encounter for screening mammogram for malignant neoplasm of breast Relevant Orders Bilateral screening mammogram Depression ([facility]) Husbands over the last few months, worsened [...] neurology and treatment documented in this encounter [facility] 05-18-2024 Instructions Fred Gracia NP - 05/18/2024 9:20 AM EST Keep escitalopram at 10mg, add ariprazole 5mg daily, add buspar 5mg twice a day for anxiety Follow up appt in 4 weeks Need mammogram-I will fax order to [facility] documented in this encounter [facility] 05-04-2024 Telephone encounter Note Per Aria Kumar, PT, she advises to notify Anupama and inform due to ongoing neck pain we'd be able to cx Eval that is scheduled tomorrow. Though note w/ the date range post shoulder we'll keep referral open and to contact if neck pain may reside and willing to partake PT for shoulder. She noted the recommendation. [facility] 05-04-2024 Miscellaneous Notes Per Aria Kumar, PT, she advises to notify Anupama and inform due to ongoing neck pain [...] notify if requested. documented in this encounter [facility] 05-04-2024 Telephone encounter Note She called noting she has been having severe neck pain which results in 3 bulging discs in her neck; she has an appt w/ Oren Chinchilla 08/11/24. Due to severity of pain she feels PT addressing her shoulder would be useless beginning tomorrow. She cx; I noted I would inform PT and notify if requested. [facility] 04-27-2024 History of Present illness Narrative Associated Order(s): L Inj/Asp: L [...] to verify the correct patient, procedure, equipment, product support specialist and site/side marked as required. Patient was prepped and draped in the usual sterile fashion. Images from the original note were not included. Subjective Patient ID: Anupama Vasquez is a 53 y.o. female. Chief Complaint: Post-op of the Left Shoulder (Lt shoulder scope, RCR [facility] 02/10/24) Last Surgery: No surgery found Last Surgery Date: No surgery found HPI Anupama comes in today she is having a [...] for breakthrough discomfort. documented in this encounter [facility] 04-27-2024 Instructions MARCELLE Perea - 04/27/2024 9:00 [...] for breakthrough discomfort. documented in this encounter [facility] 04-27-2024 Telephone encounter Note Please call to schedule pt a fu appt in the next month [place] [facility] 04-27-2024 Miscellaneous Notes Please call to schedule pt a fu appt in the next month [place] documented in this encounter [facility] 03-09-2024 Telephone encounter Note Patient stated she [...] ass she's doing it and hung up. [facility] 03-09-2024 Miscellaneous Notes Patient stated she has [...] and hung up. documented in this encounter [facility] 03-05-2024 History of Present illness Narrative Associated Problem(s): Candidiasis of skin [...] from the original note were not included. Anupama Vasquez is a 53 y.o. female presents [...] hours as needed for shoulder surgical pain., [employer] #72, 167.7, cm, 02/05/24 11:09:00 EDT, [...] Date Abnormal CBC 07/30/2023 Anxiety and depression ([facility]) Carpal tunnel syndrome 2002 Chronic diarrhea Chronic shoulder pain 05/01/2023 Class 3 severe obesity without serious comorbidity with body mass index (BMI) of 45.0 to 49.9 in adult ([facility]) 04/30/2023 Constipation Depression ([facility]) Hot flashes 07/30/2023 Hyperlipidemia, acquired ([facility]) 07/30/2023 Hypertension ([facility]) Knee pain, left anterior Major depression ([facility]) Morbid obesity with BMI of 40.0-44.9, adult ([facility]) Multiple sclerosis ([facility]) Night sweats 07/30/2023 LORENZO (obstructive sleep apnea) 07/30/2023 Pain of left middle finger Primary insomnia Rash Rectal burning Right knee pain, unspecified chronicity Sinusitis Stroke ([facility]) 07/30/2023 Urinary incontinence in female Vaginal discharge Vitamin D deficiency Past Surgical History: Procedure Laterality Date CARPAL TUNNEL RELEASE Right 2004 ECTOPIC SURGERY HYSTERECTOMY 1991 SHOULDER SURGERY Left 02/10/2024 Arthroscopy, RCR @ [facility] w/ MTP TUBAL LIGATION 1990 family [...] Relevant Orders Flu vaccine, MDCK, quadrivalent, PF (KYD129) (Flucelvax single dose syringe) Candidiasis of skin D/t her arm being in a sling, she is requesting we use nystatin powder as cream and ointment is not something she can properly use at this time Relevant Medications nystatin (Mycostatin) [id number] UNIT/GM powder documented in this encounter [facility] 02-25-2024 History of Present illness Narrative Chief complaint: S/P left shoulder scope/RC repair-first postoperative visit History: S/P shoulder scope, doing well. No complaints with anesthesia or fallon-operative ancillary care. Block was helpful and no [...] for 2 more weeks. PT was sent [facility]'s Nitish large RC repair protocol. F/U will be in 2 months, prn if doing well. All questions answered. documented in this encounter [facility] 02-14-2024 Telephone encounter Note MTP- PO Lt [...] you please call patient and inform her. [facility] 02-14-2024 Miscellaneous Notes MTP- PO Lt shoulder [...] and inform her. documented in this encounter [facility] 02-13-2024 Telephone encounter Note Was wanting to know if she could stop taking the percocet, pain isn't that bad and she was wanting to take her trazodone. [facility] 02-13-2024 Miscellaneous Notes Was wanting to know if she could stop taking the percocet, pain isn't that bad and she was wanting to take her trazodone. documented in this encounter [facility] 02-10-2024 Hospital Discharge instructions Patient Education 02/10/2024 15:39:49 Shoulder Cryocuff Patient Instructions - FT (CUSTOM) 02/10/2024 15:39:45 Post Op Patient Instructions - FT (CUSTOM) 02/06/2024 18:01:14 Brooks - After Your Shoulder Arthroscopy (Revised 06/17/14) (CUSTOM) [place], [place] [facility] AFTER YOUR SHOULDER ARTHROSCOPY [...] your appointment. Eliazar Brooks, DO [facility] [address] [place], [place] [id number] Reviewed: 06-03 Follow Up Care 12/24/2023 11:37:06 With:YUE Santamaria Address: [address] [place] [address]- Business (1) When:02/25/2024 14:30:00 Comments:Keep scheduled appointmentCall for any problems. [facility] 02-10-2024 Note Progress Note-Physic nakul Patient: ANUPAMA VASQUEZ Age: 53 years Sex: Female : 1970 Associated Diagnoses: None Author: Mina BENITEZ, Mynor Markham Postoperative Information Postoperative disposition: Postoperative disposition: To PACU. Optimetrix number: Optimetrix number [id number]. Anesthetic utilized: General. Regional: Interscalene Block. Health [...] when meets criteria ( To home ). [facility] Comment on above: Result Comment: Elec tronically Signed By: Mina BENITEZ, Mynor Markham\.br\Date and Time Signed: 02/10/24 16:19 EDT 02-10-2024 Note Patient Education - Text [place], [place] [facility] AFTER YOUR SHOULDER ARTHROSCOPY [...] your appointment. Eliazar Brooks, DO [facility] [address] [place] [address] Reviewed: 06-03 [facility] 02-10-2024 Evaluation + Plan note Extrac jonah from: Title:ANES Post-operative Note---General Author: Mynor Vega MD Date:02/10/24 Plan Transfer/Discharge: Transfer/Discharge Discharge when meets criteria ( To home ). Extracted from: Title:ANES Pre-operative Note 2022 Author:Mynor Young. Date:02/10/24 Plan [place] [employer]esthesiologists (ASA) physical status classification: Class III. Anesthetic Preoperative Plan: Anesthesia General, and LMA. Regional Interscalene block. [facility] 09-23-2024 NoteProgress Note-Physician Patient: ANUPAMA VASQUEZ Age: 53 years Sex: Female : 1970 Associated Diagnoses: None Author: Mynor Vega MD Preoperative Information Anesthesia Preop Info: Time [...] EDT, 02/10/24 15:00:00 EDT Lactated Ringers IV Candi 1000 mL 1,000 mL: 1,000 mL, IV, [...] hours as needed for shoulder surgical pain., [employer] #72, 167.7, cm, 02/05/24 11:09:00 EDT, [...] mL/hr PRN: (12) acetaminophen-oxyC (more content not included)...[facility] Comment on above:Result Comment: Electronically Signed By: Mina BENITEZ, Mynor Markham\.br\Date and Time Signed: 02/10/24 13:21 [id number] History of Present illness Narrative* Fred Gracia NP - 02/03/2024 3:02 PM EDTAssociated [...] to see neuro to oren jackson at [facility] * Fred Gracia NP - 02/03/2024 2:20 PM EDT Images from the original note were not included. Anupama Vasquez is a 53 y.o. female presents [...] Oral, 2 times daily, Take with food Mujcdej-Whvlfisdjvw-Anwrkbeycn ([employer]) 160-9-4.8 MCG/ACT aerosol 2 puffs, [...] Date Abnormal CBC 07/30/2023 Anxiety and depression ([facility]) Carpal tunnel syndrome 2002 Chronic diarrhea Chronic shoulder pain 05/01/2023 Class 3 severe obesity without serious comorbidity with body mass index (BMI) of 45.0 to 49.9 in adult ([facility]) 04/30/2023 Constipation Depression ([facility]) Hot flashes 07/30/2023 Hyperlipidemia, acquired ([facility]) 07/30/2023 Hypertension ([facility]) Knee pain, left anterior Major depression ([facility]) Morbid obesity with BMI of 40.0-44.9, adult ([facility]) Multiple sclerosis ([facility]) Night sweats 07/30/2023 LORENZO (obstructive sleep apnea) 07/30/2023 Pain of left middle finger Primary insomnia Rash Rectal burning Right knee pain, unspecified chronicity Sinusitis Stroke ([facility]) 07/30/2023 Urinary incontinence in female Vaginal [...] of 45.0 to 49.9 in adult (CMS/HCC) Diverticulitis - Primary Fluids, atb, fu if not better If any fever, chills or worsening in symptoms go to ER Relevant Medications amoxicillin-clavulanate (Augmentin) 875-125 MG tablet documented in this [id number] History of Present illness Narrative* Renuka Bui - 01/30/2024 10:30 AM EDT Images from the original note were not included. GENERAL HISTORY AND PHYSICAL: NAME: Anupama Vasquez : 1970 CHIEF COMPLAINT: Left shoulder pain and weakness. Review EMG. HISTORY OF PRESENT ILLNESS: Anupama is here to review the EMG dated [...] EMG shows no sign of neck compression. Anupama is here as a 53-year-old female emotional [...] Date Abnormal CBC 07/30/2023 Anxiety and depression ([facility]/HCC) Carpal tunnel syndrome 2002 Chronic diarrhea Chronic shoulder pain 05/01/2023 Class 3 severe obesity without serious comorbidity with body mass index (BMI) of 45.0 to 49.9 in adult (CMS/HCC) 04/30/2023 Constipation Depression (CMS/HCC) Hot flashes 07/30/2023 Hyperlipidemia, acquired (CMS/HCC) 07/30/2023 Hypertension (CMS/HCC) Knee pain, left anterior Major depression (CMS/HCC) Morbid obesity with BMI of 40.0-44.9, adult ([facility]) Multiple sclerosis (CMS/HCC) Night sweats 07/30/2023 LORENZO (obstructive sleep apnea) 07/30/2023 Pain of left middle finger Primary insomnia Rash Rectal burning Right knee pain, unspecified chronicity Sinusitis Stroke ([facility]) 07/30/2023 Urinary incontinence in female Vaginal discharge Vitamin D deficiency PAST SURGICAL HISTORY: Past Surgical History: Procedure Laterality Date CARPAL TUNNEL RELEASE Right 2005 ECTOPIC SURGERY HYSTERECTOMY 1991 TUBAL LIGATION 1991 SOCIAL HISTORY: Social History Occupational History Not [...] 2 puffs, Inhalation, Every 6 hours PRN Dycidep-Lcicxvfebnj-Ydgjyudwbz ([employer]tri [employer]) 160-9-4.8 MCG/ACT aerosol 2 puffs, [...] shoulder. Eliazar Brooks D.O. documented in this [id number] Telephone encounter Note* Telephone Encounter - Michelle Lujan - 01/17/2024 12:20 PM EDT Called patient back to let her know that Jessica's preference is for the patient to remain at [facility] ifshe is to order the medication. Patient said she would establish care with local neurologist. [facility]08-30-2024 Miscellaneous Notes* Telephone Encounter - iMchelle Lujan - 01/17/2024 12:20 PM EDT Called patient back to let her know that Jessica's preference is for the patient to remain at [facility] ifshe is to order the medication. Patient said she would establish care with local neurologist. * Telephone Encounter - Miri Soni - 01/14/2024 2:09 PM EDT Kriss Call Name of caller : Anupama Vasquez Relationship to patient: Self Return call phone number : [phone] Reason for call : Other : Brief description of concern :Please fax infusion orders to [phone] [facility]. documented in this encounterUniversity Hospitals Tripoint [facility] Center08-27-2024 Telephone encounter Note * Telephone Encounter - Miri Soni - 01/14/2024 2:09 PM EDT Kriss Call Name of caller : Anupama Vasquez Relationship to patient: Self Return call phone number : [phone] Reason for call : Other : Brief description of concern :Please fax infusion orders to [phone] [facility]. [facility] Work Phone: [phone] Telephone encounter Note* Telephone Encounter - She [...] to call if she changes her mind. [facility]08-01-2024 Miscellaneous Notes* Telephone Encounter - She Healy [...] she changes her mind. documented in this encounterUniversity Hospitals Tripoint Medical Center04-19-2024 NoteHNO ID: [id number] Author: LASHAUN VASQUEZ PA-C Service: ? Author Type: Physician Director Of Manufacturing Operations Type: Progress Notes Filed: 09/06/2023 10:11 Note Text: SPINE SURGERY OUTPATIENT CONSULT This is a virtual visit using [employer] Video Visit. It required patient-provider interaction for the medical decision making as documented below. I have communicated my name and active licensure. The patient's identity and physical location were verified at the time of this visit. Either the patient or their legal passenger relations representative has been informed of the risks and benefits of -- and alternatives to -- treatment through a remote evaluation and consents to proceed with the evaluation remotely. SERVICE DATE: 09/06/2023 PCP: Valdez Acosta MD REFERRING PROVIDER: Jessica Clarke [phone] [facility] [id number] Consult requested for an opinion regarding the evaluation and treatment of neck pain. My final impression and recommendations will be communicated back to the requesting physician by way of the shared medical record or letter via US mail. SUBJECTIVE Anupama Vasquez is a 53 year old female [...] in the past as well. Works with [employer] for her MS. Saw an outside orthopedic [...] Function Percentile 7 1 (more content not included)...[facility]04-19-2024 History of Present illness Narrative* Lashaun Vasquez PA-C - 09/06/2023 9:41 AM EDT SPINE SURGERY OUTPATIENT CONSULT This is a virtual visit using [employer] Video Visit. It required patient- provider interaction for the medical decision making as documented below. I have communicated my name and active licensure. The patient's identity and physical location wereverified at the time of this visit. Either the patient or their legal passenger relations representative has been informed of the risks and benefits of -- and alternatives to -- treatment through a remote evaluation andconsents to proceed with the evaluation remotely. SERVICE DATE: 09/06/2023 PCP: Valdez Acosta MD REFERRING PROVIDER: Jessica Clarke [phone] [facility] [id number] Consult requested for an opinion regarding the evaluation and treatment of neck pain. My final impression and recommendations will be communicated back to the requesting physician by way of the shared medical record or letter via US mail. SUBJECTIVE Anupama Vasquez is a 53 year old female [...] in the past as well. Works with [employer] for her MS. Saw an outside orthopedic [...] DATA REVIEW [facility] records independently reviewed ASSESSMENT/PLAN (R25.640) Left arm weakness (primary encounter diagnosis) Virtual [...] faceto face time was 45 minutes. SIGNATURE: Lashaun Vasquez PA-C PATIENT NAME: Anupama Vasquez DATE: September 06, 2023 TIME: 9:41 AM PAGER: documented in this encounterUniversity Hospitals Tripoint Medical Center04-09-2024 NoteHNO ID: [id number] Author: ANISHA SANCHEZ PA-C Service: ? Author Type: Physician Director Of Manufacturing Operations Type: Progress Notes Filed: 08/27/2023 11:37 Note [...] from ongoing conservative management. BMI 47.78 [facility] History of Present illness Narrative* Anisha [...] 47.78 Anisha Sanchez PA-C * Rajat Hanson - 08/22/2023 1:43 PM EDT Patient name: Anupama Vasquez Are you being referred by a Center for Spine Health Provider or Pain Management Provider at [facility]? No If answer is YES please [...] the MRI/CT/myelogram was completed: [facility] Address: [address] [place] [address] MRI/CT/myelogram viewable in Epic: Yes If not, please provide [phone] to fax in imaging reports for review. [...] where the surgery was completed: Additional Comments [phone] (Home Phone) documented in this encounterUniversity Hospitals Tripoint Medical Center04-04-2024 NoteHNO ID: [id number] Author: ?, ?, ? Service: ? Author Type: ? Type: Progress Notes Filed: 08/27/2023 11:37 Note Text: Patient name: Anupama Vasquez Are you being referred by a [facility] Spine Health Provider or Pain Management Provider at [facility]? No If answer is YES please [...] the MRI/CT/myelogram was completed: [facility] Address: [address] [place] [address] MRI/CT/myelogram viewable in Epic: Yes If not, please provide [phone] to fax in imaging reports for review. [...] where the surgery was completed: Additional Comments [phone] (Home Phone)[facility]04-03-2024 Miscellaneous Notes* Telephone Encounter - Renuka Ellison - 08/21/2023 4:17 PM EDT Kriss Call Name of caller : Anupama Vasquez Relationship to patient: Self Return call phone number : [phone] Reason for call : Other : Brief [...] call to discuss further. documented in this encounterUniversity Hospitals Tripoint Medical Center02-28-2024 Miscellaneous Notes* Telephone Encounter - Elizabeth Victoria RN - 07/17/2023 9:04 AM EST Called patient, no answer. Message left indicating [employer] message would be sent with reason for [...] since c-spine MRI was completed locally outside [facility] in April. Orders already placed * Telephone Encounter - Anjelica Alba - 07/15/2023 3:18 PM EST [place] Call Name of caller : Steffanie Relationship to patient: Caregiver Return call phone number : appointments Reason for call : Order for MRI needed for Brain and Cervical documented in this encounterUniversity Hospitals Tripoint Medical Center02-21-2024 History of Present illness Narrative* Paris Toledo DO - 07/10/2023 6:00 PM EST [facility] Initial Evaluation July 10, 2023 This appointment was requested by Jessica Clarke PA-C, for my medical opinion regarding the evaluation and management of the patient's Anupama Vasquez problems, and my final recommendations will be communicated to the requesting health care provider by way of the shared medical record for internal providers or letter via the [employer] for external providers. SUBJECTIVE: Anupama Vasquez a 53 year old presents to [facility] Pain Management Department, accompanied by self only, [...] PT several years ago (+) relief [place] Alcohol Abuse - No Drug Abuse - [...] No history of dysuria, frequency or incontinence SALT MINER: Negative for abnormal vaginal bleeding, abnormal [...] supervised home exercise program (HEP): No 5. Buggy Man: No Passive conservative therapy lasting 6 weeks [...] edited as needed and is complete. Paris Toledo, July 10, 2023 Physical Examination: Pulse 89 [...] present during the interview and physical exam. Anupama Vasquez is a 53 year old female [...] PA-C for allowing me to participate in Anpuama Vasquez's care. I spent a total of 45 minutes on the date of the service which included preparing to see the patient, whuk-yq-gzif patient care, completing clinical documentation, performing a medically appropriate examination, counseling and educating the patient/family/caregiver, ordering medications, tests, or p rocedures, and communicating with other HCPs (not separately reported). Paris Toledo DO July 10, 2023 documented in this encounterUniversity Hospitals Tripoint Medical Center02-21-2024 NoteHNO ID: [id number] Author: PARIS TOLEDO DO Service: ? Author Type: Physician Type: Progress Notes Filed: 07/12/2023 11:26 Note Text: [facility] Initial Evaluation July 10, 2023 This appointment was requested by Jessica Clarke PA-C, for my medical opinion regarding the evaluation and management of the patient's Anupama Vasquez problems, and my final recommendations will be communicated to the requesting health care provider by way of the shared medical record for internal providers or letter via the [employer] for external providers. SUBJECTIVE: Anupama Vasquez a 53 year old presents to [facility] Pain Management Department, accompanied by self only, [...] (MS) PT several years ago (+) relief [facility] Alcohol Abuse - No Drug Abuse [...] No history of dysuria, frequency or incontinence SALT MINER: Negative for abnormal vaginal bleeding, abnormal vaginal discharge MUSCULOSKELETAL: Negative for joint pain or swelling, back pain or muscle pain. NEUROLOGIC:Negative for focal numbness or weakness, headaches and dizziness or syncope. SKIN:Negative for lesions, rash, and itching. PSYCHIATRIC: Negative for sleep disturbance, mood disorder and recent psychosocial stressors. LIN[place]OD (more content not included)...[facility]02-07-2024 History of Present illness Narrative* [...] not while acutely ill. Follow up with Fred, her PCP after PFT in 2 months. [...] 06/26/2023 11:30 AM EST Subjective Patient ID: Anupama Vasquez is a 53 y.o. female who [...] not while acutely ill. Follow up with Fred, her PCP after PFT in 2 months. [...] 8 weeks (around 08/21/2023). documented in this [id number] NoteHNO ID: [id number] Author: She Brand RN Service: ? Author [...] ; pt states she had her tubes tied.[facility]12-14-2023 History of Present illness Narrative* Jessica Clarke PA-C - 05/02/2023 7:30 AM EST Images from the original note were not included. [facility] MULTIPLE SCLEROSIS FOLLOWUP/ESTABLISHED PATIENT VIRTUAL [...] visit. Either the patient or their legal passenger relations representative has been informed of the risks [...] Flowsheet Row Office Visit from 03/22/2022 in [facility] Office Visit from 11/14/2021 in [facility] Distance Health from 09/15/2021 in [facility] Upper Extremity Domain T Score 32.58 [...] Flowsheet Row Office Visit from 03/22/2022 in [facility] Office Visit from 11/14/2021 in [facility] Distance Health from 09/15/2021 in [facility] Sleep Domain T Score 61.04 -- [...] No new brain MRI to review ASSESSMENT: Anupama Vasquez is a 52 year old female [...] which included preparing to see the patient, jasw-sk-ifjo patient care, completing clinical documentation, obtaining and/or reviewing separately obtained history, counseling and educating the patient/family/caregiver, ordering medications, manuel ts, or procedures, communicating with other HCPs (not separately reported), and communicating results to the patient/family/caregiver. The patient was discussed with Dr. Escobar prior to appointment. Jessica Clarke PA-C documented in this encounterUniversity Hospitals Tripoint Medical Center12-14-2023 NoteHNO ID: [id number] Author: Jessica Clarke PA-C Service: ? Author Type: Physician Director Of Manufacturing Operations Type: Progress Notes Filed: 05/02/2023 5:39 PM Note Text: [facility] MULTIPLE SCLEROSIS FOLLOWUP/ESTABLISHED PATIENT VIRTUAL [...] visit. Either the patient or their legal passenger relations representative has been informed of the risks [...] Flowsheet Row Office Visit from 03/22/2022 in [facility]15/2021 in [facility] Upper Extremity Domain T Score 32.58 -- 34 Lower Extremity Domain T Score 36.57 -- 37 Cognitive Function Domain T Score 38.32 39 41 Positive Affect Well Being T Score -- -- -- Ability To Participate In Social Roles T Score 29.36 39 43 Satisfaction With Social Roles T Score 40.46 -- 36 Neuro-QoL Symptoms (higher=worse symptoms) Flowsheet [facility] Office Visit from 03/22/2022 in [facility] Office Visit from 11/14/2021 [facility] from 09/15/2021 in [facility] Sleep Domain T Score 61.04 -- [...] No new brain MRI to review ASSESSMENT: Anupama Vasquez is a 52 year old female [...] spent a total of (more content not included)...[facility] 04-18-2022 Evaluation note* Encounter Date Diagnosis Assessment Notes Treatment Notes Treatment Clinical Notes Mar, Change in bowel function (ICD-10 - R19.4) CONTINUE METAMUCIL DIRECTED RTO 1 YR Yappn Other 11-11-2022 Miscellaneous Notes* Telephone Encounter - Lily Monique - 03/30/2022 2:06 PM EST Patient is calling today and would like to inform that she has a new PCP. Would like to ask that Dr Acosta be removed. She now sees a Dr Fred Arteaga in [place]. Any questions please call patient at [phone] documented in this encounterUniversity Hospitals Tripoint Medical Center11-03-2022 History of Present illness Narrative* Jessica Clarke PA-C - 03/22/2022 12:40 PM EDT Images from the original note were not included. [facility] FOR MULTIPLE SCLEROSIS FOLLOWUP/ESTABLISHED PATIENT VISIT [...] on the criteria that this test assesses, Anupama Vasquez is not qualified to work under [...] OF SYSTEMS: Neuro-QoL Functions (higher=better functioning) Flowsheet Row Office Visit from 03/22/2022 in [facility] Office Visit from 11/14/2021 in [facility] Distance Health from 09/15/2021 in [facility] Upper Extremity Domain T Score 32.58 [...] Flowsheet Row Office Visit from 03/22/2022 in [facility] Office Visit [facility] 09/15/2021 in [facility] Sleep Domain T Score 61.04 -- 64 Fatigue Domain T Score 58.38 -- 65 Anxiety Domain T Score 58.73 -- 61 Depression Domain T Score 60.06 58 60 Stigma Domain T Score 58.45 -- 57 Emotional Behavior Dyscontrol T Score -- -- -- *NeuroQoL is a multi-domain patient-reported quality of life questionnaire. PHQ-9 Flowsheet [facility] from 09/15/2021 in [facility] Office Visit from 11/01/2020 in [facility] PHQ-9 Score 11 16 *PHQ-9 is a questionnaire for depressive symptoms, with scores 0-4 indicating none, 5-9 mild, 10-14moderate, 15-19 moderately severe, and 20-27 severe symptoms. 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 Jessica Clarke PA-C The chart was reviewed for possible participation in the following studies:None documented in this encounterUniversity Hospitals Tripoint Medical Center10-18-2022 History of Present illness Narrative* Lizbeth Blandon [...] Care Gap or Scheduling/Wellness visits Payer: Payor: [facility] MEDICAID / Plan: [facility] COMMUNITY [facility]AN MEDICAID OF [place] / [...] 06, 2022 4:06 PM documented in this encounterUniversity Hospitals Tripoint Medical Center09-26-2022 Miscellaneous Notes* Telephone Encounter - Jaycee Haley - 02/12/2022 9:08 AM EDT Called pt LVM to see about setting up pt and psycology. documented in this encounterUniversity Hospitals Tripoint Medical Center08-30-2022 History of Present illness Narrative* NASIR Smalls - 01/16/2022 1:17 PM EDT [facility] NEURO FUNCTIONAL CAPACITY EVALUATION GENERAL RECORD INFORMATION CURRENT VISIT NUMBER: ONSET:09/15/2021 1st:01/16/2022ert Date:01/16/2022 THERAPISTS NAME: NASIR Smalls INSURANCE TYPE: Payor: [facility] MEDICAID / Plan: [facility] [employer] MEDICAID / Product Type: Medicaid / REFERRING PROVIDER: Jessica Clarke PA-C PLAN OF CARE: 01/16/2022 Patient identified by name and date: Yes PRINCIPAL NEUROLOGIC DIAGNOSIS: multiple sclerosis DISEASE SUMMARY Date of onset: October 2011 Date of diagnosis of MS: June 2012 Disease course at onset: Relapsing-Remitting Current disease course: Relapsing-Remitting SUBJECTIVE: Anupama Vasquez is a 51 year old female [...] of work duties Social / Living Situation: Anupama lives with spouse and resides in a [...] 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 in the past 10 years: 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; 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; 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, [...] WFL WFL Ankle Dorsiflexion WFL WFL STRENGTH: Anupama Vasquez is right-handed RIGHT LEFT Shoulder Abd 4/5 4/5 Shoulder Flexion 4/5 4/5 Elbow Flexion 5/5 5/5 Elbow extension 5/5 5/5 Wrist flexion 5/ 5/5 Wrist extension 5/5 5/5 Metal Pickling Equipment Operator strength (Alexis position 2) 70 lbs 53 lbs Hip abduction 09/21 5/5 Hip flexion 4-/5 4-/5 Hip extension / 5/5 Knee extension 09/21/5 Knee flexion 09/21 09/21 Ankle DF 5/ 5/5 Ankle PF /5 MODIFIED MIGDALIA SCALE: plantar flexor: RT: 0 [...] object from floor: 4 = able to mushroom picker object safely and easily Looking over shoulder: [...] - alternating feet, must use rail Total: 18 Scores less than or equal to 19 out of 24 suggest increased fall risk GAIT and Ambulation: Level of assistance: Supervision and stand by assistance with increased fatigue Assistive device used: None Gait deviations noted: Decreased activity tolerance, requiring seated rest breaks after every measure; decrease gait speed Stairs: Required use of hand rails Ramps: WF 25 Foot Walk: 7.9 seconds on 01/16/2022 [...] 89 to 93% and HR 125bpm SENSATION: WF COORDINATION: Nine-Hole peg test: Right 24.13, 23.06 seconds; CV = 0.06207% Left 22.41, 26.54 seconds; CV = 0.98801% Norms for a 51 year old female [...] L 19.6 3.4 HAND TESTS: 5 position Alexis R L pos 1 55 52 pos 2 77 75 pos 3 80 78 pos 4 70 55 pos 5 60 35 YES Valid YES Valid Right sales representative sales manager best result: 80 lbs; percentile rank = 75 % Left sales representative sales manager best result: 78 lbs; percentile rank = 90 % Tremors?: No Hand Metal Pickling Equipment Operator Norms: MALE Percentile - lbs. 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 Is the 5 position ALEXIS valid? (allow one outlier B) X 6. Are ALEXIS position 2 CV's < 15% X 7. Are 9HPT result CV's < 15% X Is the test valid? 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 X Agree Disagree 2. In a work environment, it is anticipated that Anupama Vasquez would be able to stand/walk while maintaining attention for at least 6 hours per day. Agree X Disagree 3. In a work environment, it is anticipated that Anupama Vasquez would need to take unscheduled breaks on a daily basis to rest due to her condition, taking her off task more than six minutes per hour. X Agree Disagree 4. In a work environment, it is anticipated that Anupama Vasquez would need to take multiple unscheduled breaks on a daily basis due to bladder urgency and frequency. X Agree Disagree 5. Anupama Vasquez s complaints of fatigue are consistent with the neurologic fatigue associated with a diagnosis of multiple sclerosis. X Agree Disagree 6. In a work environment, it is anticipated that Anupama Vasquez would need to take multiple unscheduled breaks on a daily basis due to chronic and progressive multiple sclerosis fatigue. X Agree Disagree Physical factors that impair Anupama Georges ability to work include: 1. Gait has [...] of the upper extremities is MINIMALLY impaired Anupama Vasquez completed a variety of questionnaires today as a part of this exam. Based on the PHQ-9 Anupama Vasquez has a moderate level of depression. Based on the MFIS and the FSS Anupama Vasquez has a severe level of fatigue. This was consistent with the observations during this exam. Based on the multiple pain questionnaires Anupama Vasquez experiences moderate pain. The locations of [...] on the criteria that this test assesses, Anupama Vasquez is not qualified to work under [...] 8 units: 113-127 mins Physical Performance Test (49586) Skilled Intervention: Neurologically-based functional capacity evaluation specific to the diagnosisof Multiple Sclerosis. Proper administration and selection of physical performance test based on clinical presentation, deficits, and needs. Jojo Pickard OTR/Verena documented in this encounterUniversity Hospitals [facility]07-27-2022 Evaluation note* Encounter Date Diagnosis Assessment Notes Treatment Notes Treatment Clinical Notes Nov, Change in bowel function (ICD-10 - R19.8) ENCOURAGED METAMUCIL CAPSULES DAILY. Nov, Tubular adenoma (ICD-10 - D36.9) WILL REPEAT COLON IN 5 YEARS Nov, Diverticulosis (ICD-10 - K57.90) Nov, Hemorrhoids (ICD-10 - K64.9) [facility] Other 06-28-2022 History of Present illness Narrative* Sarthak Escobar MD, PhD - 11/14/2021 8:31 AM EDT Images from the original note were not included. [facility] FOLLOWUP/ESTABLISHED PATIENT VISIT [...] modifying therapy INTERVAL HISTORY: Usual treating team: Marce/Young The patient is accompanied by self. The [...] across my vision sometimes Will see PCP (Fred) again in December SUBJECTIVE & REVIEW OF SYSTEMS: Neuro-QoL Functions (higher=better functioning) [facility]2021 in [facility] OfficeVisit from 11/01/2020 in [facility] Upper Extremity Domain T Score 34 30 Lower Extremity Domain T Score 37 40 Cognitive Function Domain T Score 39 41 36 Positive Affect Well Being T Score Ability To Participate In Social Roles T Score 39 43 46 Satisfaction With Social Roles T Score 36 39 Neuro-QoL Symptoms (higher=worse symptoms) [facility] Visit [facility] 11/14/20[facility] from 09/15/2021 in [facility] OfficeVisit from 11/01/2020 in [facility] Sleep Domain T Score 64 64 Fatigue Domain T Score 65 69 Anxiety Domain T Score 61 65 Depression Domain T Score 58 60 66 Stigma Domain T Score 57 63 Emotional Behavior Dyscontrol T Score *NeuroQoL is a multi-domain patient-reported quality of life questionnaire. PHQ-9 [facility] from 09/15/2021 in [facility] Office Visit from 11/01/2020 in [facility] PHQ-9 Score 11 16 *PHQ-9 is a questionnaire for depressive symptoms, with scores 0-4 indicating none, 5-9 mild, 10-14moderate, 15-19 moderately severe, and 20-27 severe symptoms. 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 ASSESSMENT/PLAN: Anupama Vasquez is a 51 year old female with Multiple Sclerosis. Patient is on Ocrevus for DMT. Reports good tolerance and compliance. Last infusion 09/18/21. Labs reviewed and acceptable. Brain MRI from today reviewed and shows 1 new lesion that is slightly atypical for demyelination. Reviewed with Dr. Escobar and will check JCV today and will perform 7T brain MRI in 3 months at [place]. Will hold next infusion until reviewing MRI. [...] and Stretching Follow-up: In 3 months at [place] with [facility] APC I spent a total of 40 minutes on the date of the service which included preparing to see the patient, [id number] patient care, completing clinical documentation, obtaining and/or reviewing separately obtained history, performing a medically appropriate examination, counseling and educating the pat ient/family/caregiver, ordering medications, tests, or procedures, independently interpreting results (not separately reported) and communicating results to the patient/family/caregiver. The patient was discussed with Dr. Escobar. Jessica Clarke PA-C [facility] STAFF PHYSICIAN NOTE OF PERSONAL INVOLVEMENT [...] Sarthak Escobar MD, PhD Associate Staff Neurologist [facility] documented in this encounterUniversity Hospitals [facility] Center06-28-2022 History of Present illness Narrative* Eliazar Gupta RT(R) - 11/14/2021 7:30 AM EDT Radiology [...] Multiple Sclerosis SIGNATURE: RT [place](R) PATIENT NAME: Anupama Vasquez DATE: November 14, 2021 TIME: 7:43 AM documented in this encounterUniversity Hospitals Tripoint [facility] Center04-29-2022 History of Present illness Narrative* Jessica Clarke PA-C - 09/15/2021 11:19 AM EDT Images from the original note were not included. [facility] FOLLOWUP/ESTABLISHED PATIENT VIRTUAL [...] 70 lbs. No energy - mood worse Fred Frankcaitielee is new [facility] PCP - changed anxiety and depression meds [...] neurologist locally. Asking about switching infusions to [facility] [place] REVIEW OF SYSTEMS: Mood: PHQ9 responses reviewed and appear below Bladder: colonoscopy recently Pain:reviewed on nursing intake documentation Neuro-QoL Functions (higher=better functioning) Appointment from 09/15/2021 in [facility] Office Visit from 11/01/2020 in [facility] Office Visit from 07/31/2019 in [facility] Upper Extremity Domain T Score 34 30 41.73 Lower Extremity Domain T Score 37 40 41.61 Cognitive Function Domain T Score 41 36 45 Positive Affect Well Being T Score 40.79 Ability To Participate In Social Roles T Score 43 46 39.92 Satisfaction With Social Roles T Score 36 39 43.36 Neuro-QoL Symptoms (higher=worse symptoms) Appointment from 09/15/2021 in [facility] Office Visit from 11/01/2020 in [facility] Office Visit from 07/31/2019 in [facility] Sleep Domain T Score 64 64 [...] No new brain MRI to review ASSESSMENT: Anupama Vasquez is a 51 year old female [...] available 4. Consult OT - [facility] at [place] 5. Continue with PCP as planned I spent a total of 20 minutes on the date of the service which included preparing to see the patient, [id number] patient care, completing clinical documentation, obtaining and/or reviewing separately obtained history, counseling and educating the patient/family/caregiver, ordering medications, manuel ts, or procedures and communicating results to the patient/family/caregiver. Jessica Clarke PA-C documented in this encounterUniversity Hospitals Tripoint Medical Center04-19-2022 Procedure noteProm[facility] Evaluation note* Encounter Date Diagnosis Assessment Notes Treatment Notes Treatment Clinical Notes Jul, Constipation (ICD-10 - K59.00) Jul, Rectal bleeding (ICD-10 - K62.5) Jul, Rectal pain (ICD-10 - K62.89) Sample of Recticare cream given to patient Jul, Change in stool caliber (ICD-10 - R19.4) [place] [employer] Other evaluation + Plan note Future Appointments Appointment Date:02/10/2024 03:00:00 PM Scheduled Provider: [facility]oint[facility] Type:Surgery FT [facility] evaluation noteNo assessment information available [facility] Work Phone: evaluation note* Diagnosis Multiple sclerosis, relapsing-remitting (HCC) Multiple sclerosis documented in this encounter [facility] note* Diagnosis Multiple sclerosis (HCC)- Primary Multiple sclerosis Multiple sclerosis, relapsing-remitting (HCC) Multiple sclerosis documented in this encounter [facility] noteNo InformationNort [employer] Other Evaluation note* Diagnosis Multiple sclerosis, relapsing-remitting (HCC) Multiple sclerosis documented in this encounter [facility]* Diagnosis Multiple sclerosis, relapsing-remitting (HCC)- Primary Multiple sclerosis documented in this encounter [facility]* Diagnosis Encounter for screening mammogram for breast cancer documented in this encounter [facility]* Diagnosis Multiple sclerosis, relapsing-remitting (HCC) Multiple sclerosis documented in this encounter [facility]* Diagnosis Multiple sclerosis (HCC)- Primary Multiple sclerosis documented in this encounter [facility]* Diagnosis Multiple sclerosis, relapsing-remitting (HCC)- Primary Multiple sclerosis documented in this encounter [facility]* Diagnosis Multiple sclerosis, relapsing-remitting (HCC)- Primary Multiple sclerosis documented in this encounter [facility]* Diagnosis Encounter for screening mammogram for breast cancer [facility]* Diagnosis Multiple sclerosis (HCC)- Primary Multiple sclerosis documented in this encounter [facility]* Diagnosis Multiple sclerosis (CMS/HCC)- Primary Multiple sclerosis Primary hypertension (CMS/HCC) Unspecified essential hypertension Anxiety and depression (CMS/HCC) COPD with exacerbation (CMS/HCC) Non-recurrent acute suppurative otitis media of left ear without spontaneous rupture of tympanic membrane documented in this encounter [facility]* Diagnosis Cervical disc disorder with radiculopathy- Primary Brachial neuritis or radiculitis nos Cervical stenosis of spine Spinal stenosis in cervical region Chronic neck pain Cervicalgia [facility] Multiple [facility] (HCC)- Primary Multiple sclerosis documented in this encounter [facility]* Diagnosis Cervical stenosis of spine- Primary Spinal stenosis in cervical region [facility] Diagnosis Left arm weakness- Primary Other musculoskeletal symptoms referable to limbs [facility] Diagnosis Multiple sclerosis (HCC)- Primary Multiple sclerosis Vitamin D deficiency Unspecified vitamin D deficiency [facility] Diagnosis S/P arthroscopy of left shoulder- Primary documented in this encounter [facility]* Diagnosis S/P arthroscopy of left shoulder documented in this encounter [facility]* Diagnosis Class 3 severe [...] skin and nails documented in this encounter [facility]* Diagnosis Class 3 severe [...] of left shoulder documented in this encounter [facility]* Diagnosis Class 3 severe [...] and depression (CMS/HCC) documented in this encounter [facility]* Diagnosis Pre-op testing- Primary [...] frontal sinusitis- Primary documented in this encounter [facility]* Diagnosis Class 3 severe [...] or maintaining sleep documented in this encounter [facility]* Diagnosis Class 3 severe [...] (male)(female) Yeast dermatitis documented in this encounter [facility]* Diagnosis Dermatitis associated with moisture- Primary Pressure injury of left buttock, stage 2 ([facility]-HCC) [facility] Diagnosis Altered mental status, unspecified altered mental status type- Primary Altered mental status, unspecified altered mental status type BRANDON (acute kidney injury) Brain mass Unspecified condition of brain S/P craniotomy Other postprocedural status Primary hypertension Unspecified essential hypertension LORENZO (obstructive sleep apnea) Obstructive sleep apnea (adult) (pediatric) Hyperlipidemia, acquired Other and unspecified hyperlipidemia Depression, unspecified Dysphagia, oropharyngeal phase Generalized anxiety disorder with panic attacks Multiple sclerosis ([facility]-HCC) Multiple sclerosis documented [facility] general Narrative - Reported* Type Description Date Surgical History ectopic Surgical History tubal ligation Surgical History caprpal tunnel release [facility] Other History general Narrative - Reported* Type Description Date Surgical History ectopic Surgical History tubal ligation Surgical History caprpal tunnel release Hospitalization History see above [employer] Other Hospital course Narrative No data available for this section [facility] Hospital Discharge instructions No data available for this section [facility] InstructionsNot on filedocumented in this encounter [facility] No data available for this section [facility] (narrative)* Diagnostic Procedure Only (Routine) - Pending Review Specialty Diagnoses / Procedures Referred By Contac t Referred To Contact [facility] Diagnoses Encounter for screening mammogram for breast cancer Procedures ALIYA SCREENING SCREENING MAMMOGRAPHY BI 2-VIEW BREAST INC Valdez Cohen MD [address] [place] [address] [facility] [address] [place] [address] Referral ID Status Reason Start Date Expiration Date Visits Requested Visits Authorized [id number] Pending Review Auto-Generat ed Referral 11/15/2021 12/15/2022 1 1 [facility] for referral (narrative)* Diagnostic Procedure Only (Routine) - Pending Review Specialty Diagnoses / Procedures Referred By Contac t Referred To Contact [facility] Diagnoses Encounter for screening mammogram for breast cancer Procedures ALIYA SCREENING SCREENING MAMMOGRAPHY BI 2-VIEW BREAST INC Valdez Cohen MD [address] [place] [address] [facility] [address] [place] [address] Referral ID Status Reason Start Date Expiration Date Visits Requested Visits Authorized [id number] Pending Review Auto-Generat ed Referral 10/17/2022 11/16/2023 1 1 [facility] for referral (narrative)* Consultation (Routine) Specialty Diagnoses / Procedures Referred By Contac t Referred To Contact Neurology [facility] [address] [place] [phone] Aron Chinchilla MD [address] [place] [address] Referral ID Status Reason Start Date Expiration Date V isits Requested Visits Authorized Specialty Services Required [facility] NarrativeREFERRED BY FRED GRACIA FOR CONSTIPATION, (REFERRAL NOTE RECEIVED)[facility] Other Reason for visit Narrative* Rehabilitation - Outpatient (Routine) - Authorized Specialty Diagnoses / Procedures Referred By Atilio carbone Referred To Contact Physical Therapy Diagnoses S/P arthroscopy of left shoulder Procedures HI OFFICE/OUTPATIENT NEW HIGH MDM 60 MINUTES Eliazar Brooks, DO [address] [place] [address] Phone: tel: fax: Aria Kumar PT Referral ID Status Reason Start Date Expiration Date Visits Requested Visits Authorized [id number] Authorized Specialty Services Required 04/10/2024 12 12 [facility] Healthcare Summary Purpose Family History No Family [...] Unknown father Unknown mother Unknown Advance Directives No Advanced Directives Records Found Advance Directive Response Recorded Date/ Time Advance Directives No September 01, 2 022 8:00am Date Activated Date Inactivated Comments 08/28/2024 2:20 PM 09/01/2024 6:45 PM Date Activated Date Inactivated Comments 09/19/2024 4:15 AM Date Activated Date Inactivated Comments 08/28/2024 2:20 PM 09/01/2024 6:45 PM Date Activated Date Inactivated Comments 09/19/2024 4:15 AM 09/29/2024 2:25 AM Date Activated Date Inactivated Comments 08/28/2024 2:20 PM 09/01/2024 6:45 PM Reason for Referral Specialty Diagnoses / Procedures Referred By Atilio carbone Referred To Contact [facility] Diagnoses Multiple sclerosis, relapsing-remitting (HCC) Procedures CONSULT TO SCANNING SUPERVISOR OCCUPATIONAL THERAPY EVAL HIGH COMPLEX 60 MINS Jessica Clarke PA-C [address] [place] [address] [facility] [place] [address] [place] [address] Referral ID Status Reason Start Date Expiration Date Visits Requested Visits Authorized [id number] Pending Review Auto-Generat ed Referral 09/15/2021 09/15/2022 1 1 Specialty Diagnoses / Procedures Referred By Contac t Referred To Contact [facility] IMAGING Diagnoses Multiple sclerosis, relapsing-remitting (HCC) Procedures MRI BRAIN WO/W IVCON MRI BRAIN BRAIN STEM W/O W/CONTRAST MATERIAL Jessica Clarke PA-C [address] [place] [address] Mr [facility] Referral ID Status Reason Start Date Expiration Date Visits Requested Visits Authorized [id number] Pending Review Auto-Generat ed Referral 09/15/2021 10/15/2022 1 1 Referral ID Status Reason Start Date Expiration Date V isits Requested Visits Authorized [id number] Closed Auto-Generate d Referral 09/15/2021 11/25/2021 1 1 Specialty Diagnoses / Procedures Referred By Contac t Referred To Contact [facility] IMAGING Diagnoses Multiple sclerosis, relapsing-remitting (HCC) Procedures MRI BRAIN WO/W IVCON MRI BRAIN BRAIN STEM W/O W/CONTRAST MATERIAL Sarthak Escobar MD, PhD [address] [place] [address] Mr Imaging Referral ID Status Reason Start Date Expiration Date Visits Requested Visits Authorized [id number] Pending Review Auto-Generat ed Referral 11/14/2021 12/14/2022 1 1 Specialty Diagnoses / Procedures Referred By Contac t Referred To Contact [facility] IMAGING Diagnoses Multiple sclerosis, relapsing-remitting (HCC) Procedures MRI CERVICAL SPINE WO/W IVCON MRI SPINAL CANAL CERVICAL W/O & W/CONTR MATRL Jessica Clarke PA-C [address] [place] [address] Mr Imaging Referral ID Status Reason Start Date Expiration Date Visits Requested Visits Authorized [id number] Pending Review Auto-Generat ed Referral 08/30/2022 09/29/2023 1 1 Referral ID Status Reason Start Date Expiration Date Visits Requested Visits Authorized [id number] Pending Review Auto-Generat ed Referral 08/30/2022 09/29/2023 1 1 Specialty Diagnoses / Procedures Referred By Contac t Referred To Contact [facility] Diagnoses Cervical disc disorder with radiculopathy Procedures CONSULT TO PHYSICAL THERAPY PHYSICAL THERAPY EVALUATION HIGH COMPLEX [address] [place] [address] AALIYAH DOYLE [address] [place] [address] [facility] [place] [address] [place] [phone] Referral ID Status Reason Start Date Expiration Date Visits Requested Visits Authorized [id number] Pending Review Auto-Generat ed Referral 07/10/2023 07/09/2024 1 1 Specialty Diagnoses / Procedures Referred By Contac t Referred To Contact MR IMAGING Diagnoses Multiple sclerosis (HCC) Procedures MRI BRAIN WO/W IVCON MRI BRAIN BRAIN STEM W/O W/CONTRAST MATERIAL Jessica Clarke PA-C [address] [place] [id number] Mr Imaging [place] [address] Referral ID Status Reason Start Date Expiration Date Visits Requested Visits Authorized [id number] Pending Review Auto-Generat ed Referral 07/16/2023 08/14/2024 1 1 Specialty Diagnoses / Procedures Referred By Contac t Referred To Contact Diagnoses Cervical stenosis of spine Procedures CONSULT TO SPINE SURGERY OFFICE/OUTPATIENT [facility] MDM 60 MINUTES Jessica Clarke PA-C [address] [place] [address] Referral ID Status Reason Start Date Expiration Date Visits Requested Visits Authorized [id number] Authorized PCP Requested Referral 08/22/2023 08/21/2024 1 1 Specialty Diagnoses / Procedures Referred By Contac t Referred To Contact [facility] IMAG[facility] Diagnoses Left arm weakness Procedures MRI CERVICAL SPINE WO IVCON MRI SPINAL CANAL CERVICAL W/O CONTRAST Lashaun Banda PA-C [address] [place] [id number] Mr Imaging [facility] Referral ID Status Reason Start Date Expiration Date Visits Requested Visits Authorized [id number] Pending Review Auto-Generat ed Referral 09/06/2023 10/05/2024 1 1 Specialty Diagnoses / Procedures Referred By Contac t Referred [facility] Diagnoses Left arm weakness Procedures EMG(NEURO/NI) NERVE CONDUCTION STUDIES 9-10 STUDIES Lashaun Vasquez PA-C [address] [place] [address] [facility] [address] [place] [address] Referral ID Status Reason Start Date Expiration Date Visits Requested Visits Authorized [id number] Pending Review Auto-Generat ed Referral 09/06/2023 09/05/2024 1 1 Specialty Diagnoses / Procedures Referred By Contac t Referred To Contact XR IMAGING Diagnoses Left arm weakness Procedures XR CERV OTHER 4V AP/LAT/FLX/EXT RADEX SPINE CERVICAL 4 OR 5 VIEWS Lashaun Vasquez PA-C [address] [place] [address] Xr Imaging [place] [address] Referral ID Status Reason Start Date Expiration Date Visits Requested Visits Authorized [id number] Pending Review Auto-Generat ed Referral 09/06/2023 10/05/2024 1 1 Specialty Diagnoses / Procedures Referred By Contac t Referred To Contact Physical Therapy Diagnoses S/P arthroscopy of left shoulder Procedures HI OFFICE/OUTPATIENT NEW HIGH MDM 60 MINUTES Eliazar Brooks, DO [address] [place] [address] Aria Kumar PT Referral ID Status Reason Start Date Expiration Date Visits Requested Visits Authorized [id number] Pending Review Specialty Services Required 02/25/2024 08/23/2024 [...] 1,000 mg, ORAL, ONCE, 1 dose, On 09/18/21 at 0800, No more than 4000 mg of acetaminophen should be given per day (FROM ALL SOURCES) Given 09/18/2021 8:10 AM EDT 1,000 mg diphenhydrAMINE 50 mg (BENADRYL) 50 mg, ORAL, ONCE, 1 dose, On 09/18/21 at 0800 Given 09/18/2021 8:10 AM EDT [...] content) DATE CREATED AUTHOR 11/12/2017 [facility] DATE CREATED AUTHOR AUTHOR'S ORGANIZ ATION 11/13/2017 [facility] DATE CREATED AUTHOR AUTHOR'S ORGANIZ ATION 10/02/2022 [facility] DATE CREATED AUTHOR AUTHOR'S ORGANIZ ATION 12/21/2023 [facility] DATE CREATED AUTHOR AUTHOR'S ORGANIZ ATION 02/07/2024 [facility] DATE CREATED AUTHOR AUTHOR'S ORGANIZ ATION 08/19/2024 [facility] DATE CREATED AUTHOR AUTHOR'S ORGANIZ ATION 08/26/2024 [facility] DATE CREATED AUTHOR AUTHOR'S ORGANIZ ATION 09/03/2024 [facility] DATE CREATED AUTHOR AUTHOR'S ORGANIZ ATION 09/21/2024 [facility] DATE CREATED AUTHOR AUTHOR'S ORGANIZ ATION 09/24/2024 [facility] DATE CREATED AUTHOR AUTHOR'S ORGANIZ ATION 09/24/2024 [facility] DATE CREATED AUTHOR AUTHOR'S ORGANIZ ATION 10/15/2024 [facility] DATE CREATED AUTHOR AUTHOR'S ORGANIZ ATION 10/16/2024 [facility] Medical History (unrecognize d section and content) Includes: Medical History in patient's chartNo Medical History Recorded Evaluations & Outcomes (unre cognized section and content) Includes: Evaluations & Outcomes for active GoalsNo Outcomes Recorded Care Teams (unrecognized sec tion and content) Team Status: Inactive Member Role Status Dates Services [facility] Primary Care Provider Active Liyah Rosa MD Attending Provider Active Team Status: Active Member Role Status Dates Services [facility] Primary Care Provider Active Application Support Intern Relationship Specialty Start Date End Date Valdez Acosta MD [address] [place] [address] PCP - General Internal Medicine 11/01/20 Application Support Intern Relationship Specialty Start Date End Date Valdez Acosta MD [address] [place] [address]67 PCP - General Internal Medicine 11/01/20 Application Support Intern Relationship Specialty Start Date End Date Valdez Acosta MD [address] [place] [address] PCP - General Internal Medicine 11/01/20 Application Support Intern Relationship Specialty Start Date End Date Valdez Acosta MD [address] [place] [address]62 PCP - General Internal Medicine 11/01/20 Application Support Intern Relationship Specialty Start Date End Date Valdez Acosta MD [address] [place] [address]275 PCP - General Internal Medicine 11/01/20 Application Support Intern Relationship Specialty Start Date End Date Valdez Acosta MD [address] [place] [address] PCP - General Internal Medicine 11/01/20 Application Support Intern Relationship Specialty Start Date End Date Valdez Acosta MD [address] [place] [address] 33566 PCP - General Internal Medicine 11/01/20 Application Support Intern Relationship Specialty Start Date End Date Valdez Acosta MD [address] [place] [address] PCP - General Internal Medicine 11/01/20 Application Support Intern Relationship Specialty Start Date End Date Valdez Acosta MD [address] [place] [address]63 PCP - General Internal Medicine 11/01/20 Application Support Intern Relationship Specialty Start Date End Date Valdez Acosta MD [address] [place] [address]95 PCP - General Internal Medicine 11/01/20 Application Support Intern Relationship Specialty Start Date End Date Valdez Acosta MD [address] [place] [address] PCP - General Internal Medicine 11/01/20 Application Support Intern Relationship Specialty Start Date End Date Valdez Acosta MD [address] [place] [address] PCP - General Internal Medicine 11/01/20 Application Support Intern Relationship Specialty Start Date End Date Valdez Acosta MD [address] [place] [address] PCP - General Internal Medicine 11/01/20 Application Support Intern Relationship Specialty Start Date End Date Valdez Acosta MD [address] [place] [address]117 PCP - General Internal Medicine 11/01/20 Application Support Intern Relationship Specialty Start Date End Date Maxim Lanza MD [address] [place] [address] PCP - General Family Medicine 04/22/23 Fred Gracia NP [address] [place] [address] Nurse Practitioner Family Medicine 05/20/22 Application Support Intern Relationship Specialty Start Date End Date Maxim Lanza MD [address] [place] [address] PCP - General Family Medicine 04/22/23 Fred Gracia NP [address] [place] [address] Nurse Practitioner Family Medicine 05/20/22 Application Support Intern Relationship Specialty Start Date End Date Valdez Acosta MD [address] [facility] [address] PCP - General Internal Medicine 11/01/20 Application Support Intern Relationship Specialty Start Date End Date Valdez Acosta MD [address] [place] [address] PCP - General Internal Medicine 11/01/20 Application Support Intern Relationship Specialty Start Date End Date Valdez Acosta MD [address] [place] [address] PCP - General Internal Medicine 11/01/20 Application Support Intern Relationship Specialty Start Date End Date Valdez Acosta MD [address] [place] [address] PCP - General Internal Medicine 11/01/20 Application Support Intern Relationship Specialty Start Date End Date Valdez Acosta MD [address] [place] [address] PCP - General Internal Medicine 11/01/20 Application Support Intern Relationship Specialty Start Date End Date Valdez Acosta MD [address] [place] [address]83 PCP - General Internal Medicine 11/01/20 Application Support Intern Relationship Specialty Start Date End Date Valdez Acosta MD [address] [place] [address] PCP - General Internal Medicine 11/01/20 Application Support Intern Relationship Specialty Start Date End Date Maxim Lanza MD [address] [place] [address] PCP - General Family Medicine 07/15/23 Fred Gracia NP [address] [place] [address] Primary Care Provider Family Medicine 05/20/22 Application Support Intern Relationship Specialty Start Date End Date Maxim Lanza MD [address] [place] [address] PCP - General Family Medicine 07/15/23 Fred Gracia NP [address] [place] [address] Primary Care Provider Family Medicine 05/20/22 Application Support Intern Relationship Specialty Start Date End Date Maxim Lanza MD [address] [place] [address] PCP - General Family Medicine 07/15/23 Fred Gracia NP [address] [place] [address] Primary Care Provider Family Medicine 05/20/22 Application Support Intern Relationship Specialty Start Date End Date Maxim Lanza MD [address] [place] [address] PCP - General Family Medicine 07/15/23 Fred Gracia NP [address] [place] [address] Primary Care Provider Family Medicine 05/20/22 Application Support Intern Relationship Specialty Start Date End Date Maxim Lanza MD [address] [place] [address] PCP - General Family Medicine 07/15/23 Fred Gracia NP [address] [place] [address] Primary Care Provider Family Medicine 05/20/22 Application Support Intern Relationship Specialty Start Date End Date Maxim Lanza MD [address] [place] [address] PCP - General Family Medicine 07/15/23 Fred Gracia NP [address] [place] [address] Primary Care Provider Family Medicine 05/20/22 Application Support Intern Relationship Specialty Start Date End Date Maxim Lanza MD [address] [place] [address] PCP - General Family Medicine 07/15/23 Fred Gracia NP [address] [place] [address] Primary Care Provider Family Medicine 05/20/22 Application Support Intern Relationship Specialty Start Date End Date Maxim Lanza MD [address] [place] [address] PCP - General Family Medicine 07/15/23 Fred Gracia NP [address] [place] [address] Primary Care Provider Family Medicine 05/20/22 Application Support Intern Relationship Specialty Start Date End Date Maxim Lanza MD [address] [place] [address] PCP - General Family Medicine 07/15/23 Fred Gracia NP [address] [place] [address] Primary Care Provider Family Medicine 05/20/22 Application Support Intern Relationship Specialty Start Date End Date Maxim Lanza MD [address] [place] [address] PCP - General Family Medicine 07/15/23 Fred Gracia NP [address] [place] [address] Primary Care Provider Family Medicine 05/20/22 Application Support Intern Relationship Specialty Start Date End Date Maxim Lanza MD [address] [place] [address] PCP - General Family Medicine 07/15/23 Fred Gracia NP [address] [place] [address] Primary Care Provider Family Medicine 05/20/22 Application Support Intern Relationship Specialty Start Date End Date Maxim Lanza MD [address] [place] [address] PCP - General Family Medicine 07/15/23 Fred Gracia NP [address] [place] [address] Primary Care Provider Family Medicine 05/20/22 Application Support Intern Relationship Specialty Start Date End Date Maxim Lanza MD [address] [place] [address] PCP - General Family Medicine 07/15/23 Fred Gracia NP [address] [place] [address] Primary Care Provider Family Medicine 05/20/22 Application Support Intern Relationship Specialty Start Date End Date Maxim Lanza MD [address] [place] [address] PCP - General Family Medicine 07/15/23 Fred Gracia NP [address] [place] [address] Primary Care Provider Family Medicine 05/20/22 Application Support Intern Relationship Specialty Start Date End Date Maxim Lanza MD [address] [place] [address] PCP - General Family Medicine 07/15/23 Fred Gracia NP [address] [place] [address] Primary Care Provider Family Medicine 05/20/22 Application Support Intern Relationship Specialty Start Date End Date Maxim Lanza MD [address] [place] [address] PCP - General Family Medicine 07/15/23 Fred Gracia NP [address] [place] [address] Primary Care Provider Family Medicine 05/20/22 Application Support Intern Relationship Specialty Start Date End Date Maxim Lanza MD [address] [place] [address] PCP - General Family Medicine 07/15/23 Fred Gracia NP [address] [place] [address] Primary Care Provider Family Medicine 05/20/22 Application Support Intern Relationship Specialty Start Date End Date Maxim Lanza MD [address] [place] [address] PCP - General Family Medicine 07/15/23 Fred Gracia NP [address] [place] [address] Primary Care Provider Family Medicine 05/20/22 Application Support Intern Relationship Specialty Start Date End Date Maxim Lanza MD [address] [place] [address] PCP - General Family Medicine 07/15/23 Fred Gracia NP [address] [place] [address] Primary Care Provider Family Medicine 05/20/22 Application Support Intern Relationship Specialty Start Date End Date Valdez Acosta MD [address] [place] [address] PCP - General Internal Medicine 11/01/20 Sherrie Smith PA-C [address] [place] [phone] Reporter Internal Medicine 04/26/24 Elizabeth Lopez APRN.[facility] [address] [place] [address] Court Reporter Family Medicine 04/26/24 Application Support Intern Relationship Specialty Start Date End Date Maxim Lanza MD [address] [place] [address] PCP - General Family Medicine 07/15/23 Fred Gracia NP [address] [place] [address] Primary Care Provider Family Medicine 05/20/22 Application Support Intern Relationship Specialty Start Date End Date Maxim Lanza MD [address] [place] [address] PCP - General Family Medicine 07/15/23 Fred Gracia NP [address] [place] [address] Primary Care Provider Family Medicine 05/20/22 Application Support Intern Relationship Specialty Start Date End Date Maxim Lanza MD [address] [place] [address] PCP - General Family Medicine 07/15/23 Fred Gracia NP [address] [place] [address] Primary Care Provider Family Medicine 05/20/22 Application Support Intern Relationship Specialty Start Date End Date Maxim Lanza MD [address] [place] [address] PCP - General Family Medicine 07/15/23 Fred Gracia NP [address] [place] [address] Primary Care Provider Family Medicine 05/20/22 Application Support Intern Relationship Specialty Start Date End Date Maxim Lanza MD [address] [place] [address] PCP - General Family Medicine 07/15/23 Fred Gracia NP [address] [place] [address] Primary Care Provider Family Medicine 05/20/22 Application Support Intern Relationship Specialty Start Date End Date Maxim Lanza MD [address] [place] [address] PCP - General Family Medicine 07/15/23 Fred Gracia NP [address] [place] [address] Primary Care Provider Family Medicine 05/20/22 Application Support Intern Relationship Specialty Start Date End Date Maxim Lanza MD [address] [place] [address] PCP - General Family Medicine 07/15/23 Fred Gracia NP [address] [place] [address] Primary Care Provider Family Medicine 05/20/22 Application Support Intern Relationship Specialty Start Date End Date Maxim Lanza MD [address] [place] [address] PCP - General Family Medicine 07/15/23 Fred Gracia NP [address] [place] [address] Primary Care Provider Family Medicine 05/20/22 Application Support Intern Relationship Specialty Start Date End Date Maxim Lanza MD [address] [place] [address] PCP - General Family Medicine 07/15/23 Fred Gracia NP [address] [place] [address] Primary Care Provider Family Medicine 05/20/22 Application Support Intern Relationship Specialty Start Date End Date Maxim Lanza MD [address] [place] [address] PCP - General Family Medicine 07/15/23 Fred Gracia NP [address] [place] [address] Primary Care Provider Family Medicine 05/20/22 Application Support Intern Relationship Specialty Start Date End Date Maxim Lanza MD [address] [place] [address] PCP - General Family Medicine 07/15/23 Fred Gracia NP [address] [place] [address] Primary Care Provider Family Medicine 05/20/22 Team Status: Inactive Member Role Status Dates Tripp Gruber MD Attending Provider Active St art: August 22, 2024 End: August 22, 2024 Application Support Intern Relationship Specialty Start Date End Date Maxim Lanza MD [address] [place] [address] PCP - General Family Medicine 07/15/23 Fred Gracia NP [address] [place] [address] Primary Care Provider Family Medicine 05/20/22 Application Support Intern Relationship Specialty Start Date End Date Fred Gracia APRN-REGENERATOR OPERATOR [address] [place] [address] PCP - General Nurse Practitioner 08/28/24 Application Support Intern Relationship Specialty Start Date End Date Maxim Lanza MD [address] [place] [address] PCP - General Family Medicine 07/15/23 Fred Gracia NP [address] [place] [address] Primary Care Provider Family Medicine 05/20/22 Application Support Intern Relationship Specialty Start Date End Date Fred Gracia APRN-REGENERATOR OPERATOR PCP - General Nurse Practitioner 08/28/24 Application Support Intern Relationship Specialty Start Date End Date Fred Gracia APRN-REGENERATOR OPERATOR PCP - General Nurse Practitioner 08/28/24 Goals (unrecognized section and content) Goals may be documented in a n alternate section Source Comments (unrecognize d section and content) In the event this informatio n is protected by the Federal Confidentiality of Alcohol and Drug Abuse Patient Records regulations: The Federal rules restrict any use of the information to criminally investigate or prosecute any alcohol or drug abuse patient.[facility] Center[facility] the event this information is protected by the Federal Confidentiality of Alcohol and Drug Abuse Patient Records regulations: The Federal rules restrict any use of the information to criminally investigate or prosecute any alcohol or drug abuse patient.[facility] CenterIn the event this information is protected by the Federal Confidentiality of Alcohol and Drug Abuse Patient Records regulations: The Federal rules restrict any use of the information to criminally investigate or prosecute any alcohol or drug abuse patient.[facility] CenterIn the event this information is protected by the Federal Confidentiality of Alcohol and Drug Abuse Patient Records regulations: The Federal rules restrict any use of the information to criminally investigate or prosecute any alcohol or drug abuse patient.[facility] CenterIn the event this information is protected by the Federal Confidentiality of Alcohol and Drug Abuse Patient Records regulations: The Federal rules restrict any use of the information to criminally investigate or prosecute any alcohol or drug abuse patient.[facility] CenterIn the event this information is protected by the Federal Confidentiality of Alcohol and Drug Abuse Patient Records regulations: The Federal rules restrict any use of the information to criminally investigate or prosecute any alcohol or drug abuse patient.[facility] CenterIn the event this information is protected by the Federal Confidentiality of Alcohol and Drug Abuse Patient Records regulations: The Federal rules restrict any use of the information to criminally investigate or prosecute any alcohol or drug abuse patient.[facility] CenterIn the event this information is protected by the Federal Confidentiality of Alcohol and Drug Abuse Patient Records regulations: The Federal rules restrict any use of the information to criminally investigate or prosecute any alcohol or drug abuse patient.[facility] CenterIn the event this information is protected by the Federal Confidentiality of Alcohol and Drug Abuse Patient Records regulations: The Federal rules restrict any use of the information to criminally investigate or prosecute any alcohol or drug abuse patient.[facility] CenterIn the event this information is protected by the Federal Confidentiality of Alcohol and Drug Abuse Patient Records regulations: The Federal rules restrict any use of the information to criminally investigate or prosecute any alcohol or drug abuse patient.[facility] CenterIn the event this information is protected by the Federal Confidentiality of Alcohol and Drug Abuse Patient Records regulations: The Federal rules restrict any use of the information to criminally investigate or prosecute any alcohol or drug abuse patient.[facility] CenterIn the event this information is protected by the Federal Confidentiality of Alcohol and Drug Abuse Patient Records regulations: The Federal rules restrict any use of the information to criminally investigate or prosecute any alcohol or drug abuse patient.[facility] CenterIn the event this information is protected by the Federal Confidentiality of Alcohol and Drug Abuse Patient Records regulations: The Federal rules restrict any use of the information to criminally investigate or prosecute any alcohol or drug abuse patient.[facility] CenterIn the event this information is protected by the Federal Confidentiality of Alcohol and Drug Abuse Patient Records regulations: The Federal rules restrict any use of the information to criminally investigate or prosecute any alcohol or drug abuse patient.[facility] CenterIn the event this information is protected by the Federal Confidentiality of Alcohol and Drug Abuse Patient Records regulations: The Federal rules restrict any use of the information to criminally investigate or prosecute any alcohol or drug abuse patient.[facility] CenterIn the event this information is protected by the Federal Confidentiality of Alcohol and Drug Abuse Patient Records regulations: The Federal rules restrict any use of the information to criminally investigate or prosecute any alcohol or drug abuse patient.[facility] CenterIn the event this information is protected by the Federal Confidentiality of Alcohol and Drug Abuse Patient Records regulations: The Federal rules restrict any use of the information to criminally investigate or prosecute any alcohol or drug abuse patient.[facility] CenterIn the event this information is protected by the Federal Confidentiality of Alcohol and Drug Abuse Patient Records regulations: The Federal rules restrict any use of the information to criminally investigate or prosecute any alcohol or drug abuse patient.[facility] CenterIn the event this information is protected by the Federal Confidentiality of Alcohol and Drug Abuse Patient Records regulations: The Federal rules restrict any use of the information to criminally investigate or prosecute any alcohol or drug abuse patient.[facility] CenterIn the event this information is protected by the Federal Confidentiality of Alcohol and Drug Abuse Patient Records regulations: The Federal rules restrict any use of the information to criminally investigate or prosecute any alcohol or drug abuse patient.[facility] CenterIn the event this information is protected by the Federal Confidentiality of Alcohol and Drug Abuse Patient Records regulations: The Federal rules restrict any use of the information to criminally investigate or prosecute any alcohol or drug abuse patient.[facility] CenterIn the event this information is protected by the Federal Confidentiality of Alcohol and Drug Abuse Patient Records regulations: The Federal rules restrict any use of the information to criminally investigate or prosecute any alcohol or drug abuse patient.[facility] CenterIn the event this information is protected by the Federal Confidentiality of Alcohol and Drug Abuse Patient Records regulations: The Federal rules restrict any use of the information to criminally investigate or prosecute any alcohol or drug abuse patient.[facility] CenterIn the event this information is protected by the Federal Confidentiality of Alcohol and Drug Abuse Patient Records regulations: The Federal rules restrict any use of the information to criminally investigate or prosecute any alcohol or drug abuse patient.[facility] CenterIn the event this information is protected by the Federal Confidentiality of Alcohol and Drug Abuse Patient Records regulations: The Federal rules restrict any use of the information to criminally investigate or prosecute any alcohol or drug abuse patient.[facility] the event this information is protected by the Federal Confidentiality of Alcohol and Drug Abuse Patient Records regulations: The Federal rules restrict any use of the information to criminally investigate or prosecute any alcohol or drug abuse patient.[facility] Center[facility] the event this information is protected by the Federal Confidentiality of Alcohol and Drug Abuse Patient Records regulations: The Federal rules restrict any use of the information to criminally investigate or prosecute any alcohol or drug abuse patient.[facility] the event this information is protected by the Federal Confidentiality of Alcohol and Drug Abuse Patient Records regulations: The Federal rules restrict any use of the information to criminally investigate or prosecute any alcohol or drug abuse patient.[facility] CenterIn the event this information is protected by the Federal Confidentiality of Alcohol and Drug Abuse Patient Records regulations: The Federal rules restrict any use of the information to criminally investigate or prosecute any alcohol or drug abuse patient.[facility] Reason for Visit (unrecogniz ed section and content) Reason Comments IV Medication Administration [facility] Specialty Diagnoses / Procedures Referred By Atilio carbone Referred To Contact Diagnoses Multiple sclerosis (HCC) G35 (ICD-10-CM) - Multiple sclerosis (HCC) Procedures INJECTION, OCRELIZUMAB, 1 MG J2350 - INJECTION, OCRELIZUMAB, 1 MG Sarthak Escobar MD, PhD [address] [place] [address] [facility] [address] [place] [address] Referral ID Status Reason Start Date Expiration Date V isits Requested Visits Authorized [id number] Pending Review 12/06/2020 03/22/2023 4 4 Reason Comments Established Patient Follow-Up Reason Comments Infusion [facility] Referral ID Status Reason Start Date Expiration Date V isits Requested Visits Authorized [id number] Pending Review 12/06/2020 03/01/2022 2 2 Specialty Diagnoses / Procedures Referred By Contac t Referred To Contact MR IMAGING Diagnoses Multiple sclerosis, relapsing-remitting (HCC) Procedures MRI BRAIN WO/W IVCON MRI BRAIN BRAIN STEM W/O W/CONTRAST MATERIAL Jessica Clarke PA-C [address] [place] [address] Mr Imaging Referral ID Status Reason Start Date Expiration Date V isits Requested Visits Authorized [id number] Closed Auto-Generate d Referral 09/15/2021 11/25/2021 1 1 Reason Comments Established Patient Follow-Up Reason Comments [facility] Specialty Diagnoses / Procedures Referred By Contac t Referred To Contact [facility] Diagnoses Multiple sclerosis, relapsing-remitting (HCC) Procedures CONSULT TO SCANNING SUPERVISOR OCCUPATIONAL THERAPY EVAL HIGH COMPLEX 60 MINS Jessica Clarke PA-C [address] [place] [address] [facility] [place] [address] Referral ID Status Reason Start Date Expiration Date V isits Requested Visits Authorized [id number] Closed Auto-Generate d Referral 09/15/2021 05/19/2022 1 1 Reason Comments Appointment Called pt LVM to see about setting up pt and psycology. Reason Comments Established Patient Follow-Up Reason Comments Patient Update Reason Comments URI Reason Comments Consult Cervical pain Specialty Diagnoses / Procedures Referred By Contac t Referred To Contact [facility] Diagnoses Cervical stenosis of spine Procedures CONSULT TO [facility] OFFICE/OUTPATIENT NEW HIGH MDM 60 MINUTES Jessica Clarke PA-C [address] [place] [address] Referral ID Status Reason Start Date Expiration Date V isits Requested Visits Authorized [id number] Closed PCP Requested Referral 06/13/2023 06/12/2024 1 1 Reason Comments Orders Order for MRI needed for Brain and Cervical Reason Comments Patient Question Reason Comments Established Patient Reason Comments Orders Reason Comments Post-op PO Lt shoulder scope prob RCR TSCNCO 02/10/24 Specialty Diagnoses / Procedures Referred By Atilio t Referred To Contact Physical Therapy Diagnoses S/P arthroscopy of left shoulder Procedures HI OFFICE/OUTPATIENT NEW HIGH MDM 60 MINUTES Eliazar Brooks, DO [address] [place] [address] Aria Kumar PT Referral ID Status Reason Start Date Expiration Date Visits Requested Visits Authorized [id number] Pending Review Specialty Services Required 02/25/2024 08/23/2024 [...] Annual Wellness Visit Initial Reason Comments Sinusitis Reason Comments Wound Check Reason Comments Altered Mental Status Evaluation of Abnormal Diagnostic Test Specialty Diagnoses / Procedures Referred By Atilio carbone Referred To Contact Diagnoses AMS (altered mental status) Altered mental status, unspecified altered mental status type Xena Larios MD [address], [facility] [address] [place] [address] Phone: tel: fax: Referral ID Status Reason Start Date Expiration Date Visits Re quested Visits Authorized [id number] 1 1 Reason Onset Date Comments incision 09/29/2024 Scheduled Active and Recently Administ ered Medications (unrecognized section and content) Medication Order 09/27/2024 09/28/2024 09/29/2024 dexAMETHasone (DECADRON) tablet 2 mg(Linked Group 1) 2 mg, oral, 2 times daily, First dose on Sat10/05/24 at 0900, Food-Drug Interaction Education Required May alter blood glucose or insulin requirements Take/give with food Look-alike/sound-alike medication - verify indication for use. dexAMETHasone (DECADRON) tablet 3 mg(Linked Group 1) 3 mg, oral, 3 times daily, First dose on Sat09/29/24 at 1400, For 3 days, Food-Drug Interaction Education Required May alter blood glucose or insulin requirements Take/give with food Look-alike/sound-alike medication - verify indication for use. 1400 (Due)0 (Due) dexAMETHasone (DECADRON) tablet 3 mg(Linked Group 1) 3 mg, oral, 2 times daily, First dose on Sat10/02/24 at 1400, For 3 days, Food-Drug Interaction Education Required May alter blood glucose or insulin requirements Take/give with food Look-alike/sound-alike medication - verify indication for use. dexAMETHasone (DECADRON) tablet 4 mg(Linked Group 1) 4 mg, oral, 3 times daily, First dose on Sat09/26/24 at 1500, For 3 days, Food-Drug Interaction Education Required May alter blood glucose or insulin requirements Take/give with food Look-alike/sound-alike medication - verify indication for use. 0531 (Given - Provider: Regina Taylor RN)1440 (Given - Provider: Lida Wright RN)2117 (Given - Provider: Elma Moreno, MOE) 0554 (Given - Provider: Elma Moreno, MOE)151 (Given - Provider: Taylor Ayala RN)2057 (Given - Provider: Elma Moreno RN) 0600 (Due) enoxaparin (LOVENOX) syringe 40 mg 40 mg, subcutaneous, 2 times daily, First dose (after last modification) on 09/26/24 at 2100, When Creatinine Clearance 30 mL/min or greater Look-alike/sound-alike medication - verify indication for use. 0912 (Given - Provider: Lida Wright RN)2121 (Given - Provider: Elma Moreno, MOE) 0829 (Given - Provider: Taylor Ayala RN)2056 (Given - Provider: Elma Moreno, RN) 0900 (Due)2100 (Due) levETIRAcetam (KEPPRA) IVPB 500 mg/100 mL in iso-osmotic sodium chloride (5 mg/mL premix) (CANCELED) 500 mg, intravenous, at 400 mL/hr, Administer over 15 Minutes, Every 12 hours, First dose on Sat09/19/24 at 0715, Look-alike/sound-alike medication - verify indication for use. 0530 (New Bag - Provider: Regina Taylor RN)0545 (Stop Bag - Provider: Regina Taylor RN) levETIRAcetam (KEPPRA) tablet 500 mg 500 mg, oral, 2 times daily, First dose on Sat09/27/24 at 1730, Look-alike/sound-alike medication - verify indication for use. 1704 (Given - Provider: Lida Wright RN) 08 (Given - Provider: Taylor Ayala RN)2053 (Given - Provider: Elma Moreno RN) 899 (Due)2099 (Due) metoprolol tartrate (LOPRESSOR) tablet 25 mg 25 mg, oral, 2 times daily, First dose (after last modification) on Sat09/25/24 at 0900, Hold if SBP is less than 110 mmHg, or diastolic BP is less than 70 mmHg. Thank you. Look-alike/sound-alike medication - verify indication for use. 0912 (Given - Provider: Lida Wright RN)2117 (Given - Provider: Elma Moreno RN) 828 (Given - Provider: Taylor Ayala RN)2053 (Given - Provider: Elma Moreno, MOE) 899 (Due)2099 (Due) mirtazapine (REMERON CANDI-TAB) disintegrating tablet 15 mg 15 mg, oral, Nightly, First dose (after last modification) on Maribell 09/24/24 at 2200 2118 (Given - Provider: Elma Moreno RN) 2054 (Given - Provider: Elma Moreno, RN) 2199 (Due) sennosides-docusate sodium (SENOKOT-S) 8.6-50 mg 2 tablet 2 tablet, oral, Nightly, First dose (after last modification) on Maribell 09/24/24 at 2200, HOLD for greater than 2 bowel movements in the past 24 hours 2118 (Given - Provider: Elma Moreno, RN) 2053 (Given - Provider: Elma Moreno RN) 2199 (Due) Continuous Medication Order 09/27/2024 09/28/2024 09/29/2024 dextrose 2.5 % in water, 1,000 mL infusion 50-150 mL/hr, intravenous, Continuous, Starting on 09/19/24 at 0300, For Sodium level 160 mmol/L or fcdjgvu=179 mL/hr; 155 to 159 mmol/L=125 mL/hr; 150-154 mmol/L=100 mL/hr; 145-149 mmol/L=50 mL/hr; Less than 145 mmol/lL=INT IVs Notify Nephrology if sodium decreases 10 mmol/L or greater in 24 hours. solution= dextrose 2.5 % PRN Medication Order 09/27/2024 09/28/2024 09/29/2024 acetaminophen (TYLENOL) 650 mg/20.3 mL solution 650 mg(Linked Group 2) 650 mg, nasogastric, Every 6 hours PRN, mild pain - pain scale 1-3, headaches, temperature greater than 38 C, Starting on 09/19/24 at 0413 acetaminophen (TYLENOL) tablet 650 mg(Linked Group 2) 650 mg, oral, Every 6 hours PRN, mild pain - pain scale 1-3, headaches, temperature greater than 38 C, Starting on 09/19/24 at 0413 barium sulfate (VARIBAR HONEY) 40 % (w/v) 29% (w/w) suspension 60 mL 60 mL, oral, Once in imaging, contrast, barium sulfate (VARIBAR HONEY) 40 % (w/v) 29% (w/w) suspension, Starting on 09/28/24 at 1438, For 1 dose barium sulfate (VARIBAR NECTAR) 40 % (w/v) suspension 10 mL 10 mL, oral, Once in imaging, contrast, barium sulfate (VARIBAR NECTAR) 40 % (w/v) suspension, Starting on 09/28/24 at 1438, For 1 dose barium sulfate (VARIBAR PUDDING) 40 % (w/v), 30% (w/w) oral paste 60 mL (COMPLETED) 60 mL, oral, Once in imaging, contrast, barium sulfate (VARIBAR PUDDING) 40 % (w/v), 30% (w/w) oral paste, Starting on Sat09/28/24 at 1438, For 1 dose 1444 (Given - Provider: NATANAEL Zayas) barium sulfate (VARIBAR THIN HONEY) 40 %(w/v), 29% (w/w)(1500 CPS) suspension 5 mL 5 mL, oral, Once in imaging, contrast, Radiology, Starting on Sat09/28/24 at 1438, For 1 dose barium sulfate (VARIBAR THIN) 81 % (w/w) powder 148 g (COMPLETED) 148 g, oral, Once in imaging, contrast, barium sulfate (VARIBAR THIN) 40 % (w/v) powder, Starting on Sat09/28/24 at 1438, For 1 dose 1444 (Given - Provider: NATANAEL Zayas) bisacodyL (DULCOLAX) suppository 10 mg 10 mg, rectal, Daily PRN, constipation, Constipation if polyethylene glycol is ineffective or patient is unable to take oral medications, Starting on 09/19/24 at 0413, Look-alike/sound-alike medication - verify indication for use. calcium gluconate 3,000 mg in sodium chloride 0.9 % 100 mL IVPB 3,000 mg, intravenous, at 43.3 mL/hr, Administer over 3 Hours, As needed, ionized calcium 3.5 to 3.9 mg/dL, Starting on 09/19/24 at 0258, IV Administration of calcium via a central or deep vein preferred. Avoid administration in small hand veins VESICANT (RED) calcium gluconate 4,000 mg in sodium chloride 0.9 % 250 mL IVPB 4,000 mg, intravenous, at 72.5 mL/hr, Administer over 4 Hours, As needed, ionized calcium 3.4 mg/dL or less, Starting on 09/19/24 at 0258, IV administration of calcium via a central or deep vein is preferred. Avoid administration in small hand veins. VESICANT (RED) calcium gluconate IVPB 2000 mg/100 mL (20 mg/mL premix) 2,000 mg, intravenous, at 50 mL/hr, Administer over 2 Hours, As needed, ionized calcium 4 to 4.3 mg/dL, Starting on 09/19/24 at 0258, IV Administration of calcium via a central or deep vein preferred. Avoid administration in small hand veins VESICANT (RED) dextrose (GLUTOSE) 40 % gel 15 g 15 g, oral, As needed, low blood sugar, blood glucose less than 70 mg/dL, Starting on 09/19/24 at 0413, If patient conscious and taking PO. If blood glucose is not greater than 70 mg/dL after initial treatment, repeat treatment. dextrose 50 % in water (D50W) 50% solution 25 mL 25 mL, intravenous, As needed, low blood sugar, blood glucose less than 70 mg/dL and unconscious or NPO with IV access, Starting on 09/19/24 at 0413, Push over 1-3 minutes STAT. If conscious and not NPO, immediately follow with meal tray or high protein (7 grams) snack if tray not available. If NPO, initiate 5% dextrose in water at 100 mL/hr and contact prescriber for additional orders. If blood glucose is not greater than 70 mg/dL after initial treatment, repeat treatment. VESICANT (RED) Warning: HYPERTONIC solution. glucagon HCL injection 1 mg 1 mg, intramuscular, As needed, low blood sugar, blood glucose less than 70 mg/dL and unconscious or NPO without IV access., Starting on 09/19/24 at 0413, If conscious and not NPO, immediately follow with meal tray or high protein (7Grams) snack if tray not available. If NPO, initiate IV 5% Dextrose/Water at 100 mL/hr and contact prescriber for additional orders. If blood glucose is not greater than 70 mg/dL after initial treatment, repeat treatment. hydrALAZINE (APRESOLINE) injection 10 mg 10 mg, intravenous, Every 6 hours PRN, high blood pressure, Starting on 09/19/24 at 0420, For systolic blood pressure greater than 140 mmHg Look-alike/sound-alike medication - verify indication for use. Administer IV doses as a slow IV push; maximum rate: 5 mg/minute. ipratropium-albuteroL (DUONEB) 0.5 mg-3 mg(2.5 mg base)/3 mL nebulizer solution 3 mL 3 mL, nebulization, Every 6 hours PRN, wheezing, shortness of breath, Starting on 09/26/24 at 2101, Implement INPATIENT/ED Bronchodilator Clinical Practice Guidelines? Yes 0008 (Given - Provider: Ibeth Bhatti RCP)1604 (Given - Provider: Nahomy Brown RCP) 0331 (Given - Provider: Jimmy Luo RCP) labetaloL (NORMODYNE,TRANDATE) injection 10 mg 10 mg, intravenous, Every 5 min PRN, high blood pressure, Starting on Sat09/23/24 at 1915, For systolic blood pressure greater than 140 mmHg Hold for HR <65 No more than 30 mg in 1 hour Look-alike/sound-alike medication - verify indication for use. magnesium sulfate IVPB 2000 mg/50 mL in iso-osmotic water (40 mg/mL premix) 2,000 mg, intravenous, at 25 mL/hr, Administer over 120 Minutes, As needed, Magnesium level 1.7 to 1.9 mg/dL, or Ionized Magnesium level 0.45 to 0.5 mmol/L., Starting on 09/19/24 at 0258, Recheck magnesium level 4 hours after infusion complete. With each magnesium result continue the replacement orders as needed. magnesium sulfate IVPB 4000 mg/100 mL in iso-osmotic water (40 mg/mL premix) 4,000 mg, intravenous, at 25 mL/hr, Administer over 240 Minutes, As needed, Magnesium level 1.6 mg/dL or less, or Ionized Magnesium level 0.44 mmol/L or less, Starting on 09/19/24 at 0258, Recheck magnesium level 4 hours after infusion complete. With each magnesium result continue the replacement orders as needed. niCARdipine (CARDENE) infusion 25 mg/50 mL in sodium chloride 0.9% (0.5 mg/mL cmpd premix) 5-15 mg/hr (10-30 mL/hr), intravenous, Continuous PRN, for systolic greater than 140 that does not respond to labetalol and/or hydralazine, Starting on Sat09/23/24 at 1918, Please use labetalol and hydralazine first. Start at 5 mg/hr. Titrate by 2.5 mg/hr every 5 minutes to achieve (SBP less than 140). Max dose 15 mg/hr. Central line administration preferred. If central line access is not immediately available, only administer through a large peripheral vein (placement of a central line recommended if local site reaction occurs). Peripheral venous irritation may be minimized by changing the site of infusion every 12 hours. Look-alike/sound-alike medication. Verify indication for use. Do not combine or run in the same line as other medications. polyethylene glycol (GLYCOLAX) packet 17 g 17 g, oral, Daily PRN, constipation, Starting on 09/19/24 at 0413, Look-alike/sound-alike medication - verify indication for use. Dissolve 1 packet (17 gm) in 8 ounces of water, juice, soda, coffee or tea. potassium chloride (K-TAB,KLOR-CON) CR tablet 20-60 mEq(Linked Group 3) 20-60 mEq, oral, As needed, Potassium Supplementation, Starting on 09/19/24 at 0258, Progress to oral potassium replacement when patient tolerating oral intake. If dose administered, recheck potassium level 4 hours after last dose. For potassium level 3.4 to 3.7 mmol/L =20 mEq. For potassium level 3.1 to 3.3 mmol/L =40 mEq. For potassium level 3 mmol/L or less =60 mEq. Do not crush or chew. potassium chloride (KAYCIEL) 20 mEq/15 mL solution 20-60 mEq(Linked Group 3) 20-60 mEq, oral, As needed, Potassium Supplementation, Starting on 09/19/24 at 0258, Progress to oral potassium replacement when patient tolerating oral intake. If dose administered, recheck potassium level 4 hours after last dose. For potassium level 3.4 to 3.7 mmol/L =20 mEq. For potassium level 3.1 to 3.3 mmol/L =40 mEq. For potassium level 3 mmol/L or less =60 mEq. Must dilute before use - Mix in 3-8 ounces of water or juice before administration When administering in feeding tube, flush before and after per policy and monitor potassium levels potassium chloride IVPB 10 mEq/100 mL in water (0.1 mEq/mL premix)(Linked Group 3) 10 mEq, intravenous, at 100 mL/hr, Administer over 60 Minutes, As needed, POTASSIUM REPLACEMENT, Starting on 09/19/24 at 0258, IV if unable to use oral/enteral with the current dosing strategies For potassium level 3.4 to 3.7 mmol/L =20 mEq. For potassium level 3.1 to 3.3 mmol/L =40 mEq. For potassium level 3 mmol/L or less =60 mEq. Use central line when applicable. Recheck potassium level 1 hour after total IVPB infusion complete With each potassium result continue the replacement orders as needed VESICANT (YELLOW) Infuse each 10 mEq over a minimum of 1 hour. sod phos di, mono-K phos mono (K-PHOS NEUTRAL) 250 mg tablet 2 tablet(Linked Group 4) 2 tablet, oral, As needed, for phosphorus level 2.3 mg/dL or less., Starting on 09/19/24 at 0258, If dose administered, recheck phosphorus level 4 hours after last dose. Look-alike/sound-alike medication - verify indication for use. Give with a full glass of water. sodium phosphate 20 mmol in sodium chloride 0.9 % 100 mL IVPB(Linked Group 4) 20 mmol, intravenous, at 26.7 mL/hr, Administer over 4 Hours, As needed, for phosphorus level 2.3 mg/dL or less.Do not administer if potassium is more than 4.5, Starting on 09/19/24 at 0258, Administer over 4 hours via dedicated line (central line). If administered, recheck phosphorus level 4 hours after infusion complete. Infuse using central line access. sodium phosphate 20 mmol in sodium chloride 0.9 % 250 mL IVPB(Linked Group 4) 20 mmol, intravenous, at 42.8 mL/hr, Administer over 6 Hours, As needed, for phosphorus level 2.3 mg/dL or less, Starting on 09/19/24 at 0258, Administer over 6 hours via dedicated line (peripheral line). If administered, recheck phosphorus level 4 hours after infusion complete. Linked Groups Order Group 1: dexAMETHasone (DECADRON) tablet 4 mgJump to med 4 mg, oral, 3 times daily, First dose on 09/26/24 at 1500, For 3 days, Food-Drug Interaction Education Required May alter blood glucose or insulin requirements Take/give with food Look-alike/sound-alike medication - verify indication for use. Followed by dexAMETHasone (DECADRON) tablet 3 mgJump to med 3 mg, oral, 3 times daily, First dose on Sat09/29/24 at 1400, For 3 days, Food-Drug Interaction Education Required May alter blood glucose or insulin requirements Take/give with food Look-alike/sound-alike medication - verify indication for use. Followed by dexAMETHasone (DECADRON) tablet 3 mgJump to med 3 mg, oral, 2 times daily, First dose on Sat10/02/24 at 1400, For 3 days, Food-Drug Interaction Education Required May alter blood glucose or insulin requirements Take/give with food Look-alike/sound-alike medication - verify indication for use. Followed by dexAMETHasone (DECADRON) tablet 2 mgJump to med 2 mg, oral, 2 times daily, First dose on Sat10/05/24 at 0900, Food-Drug Interaction Education Required May alter blood glucose or insulin requirements Take/give with food Look-alike/sound-alike medication - verify indication for use. Group 2: acetaminophen (TYLENOL) tablet 650 mgJump to med 650 mg, oral, Every 6 hours PRN, mild pain - pain scale 1-3, headaches, temperature greater than 38 C, Starting on 09/19/24 at 0413 Or acetaminophen (TYLENOL) 650 mg/20.3 mL solution 650 mgJump to med 650 mg, nasogastric, Every 6 hours PRN, mild pain - pain scale 1-3, headaches, temperature greater than 38 C, Starting on 09/19/24 at 0413 Group 3: potassium chloride (K-TAB,KLOR-CON) CR tablet 20-60 mEqJump to med 20-60 mEq, oral, As needed, Potassium Supplementation, Starting on 09/19/24 at 0258, Progress to oral potassium replacement when patient tolerating oral intake. If dose administered, recheck potassium level 4 hours after last dose. For potassium level 3.4 to 3.7 mmol/L =20 mEq. For potassium level 3.1 to 3.3 mmol/L =40 mEq. For potassium level 3 mmol/L or less =60 mEq. Do not crush or chew. Or potassium chloride (KAYCIEL) 20 mEq/15 mL solution 20-60 mEqJump to med 20-60 mEq, oral, As needed, Potassium Supplementation, Starting on 09/19/24 at 0258, Progress to oral potassium replacement when patient tolerating oral intake. If dose administered, recheck potassium level 4 hours after last dose. For potassium level 3.4 to 3.7 mmol/L =20 mEq. For potassium level 3.1 to 3.3 mmol/L =40 mEq. For potassium level 3 mmol/L or less =60 mEq. Must dilute before use - Mix in 3-8 ounces of water or juice before administration When administering in feeding tube, flush before and after per policy and monitor potassium levels Or potassium chloride IVPB 10 mEq/100 mL in water (0.1 mEq/mL premix)Jump to med 10 mEq, intravenous, at 100 mL/hr, Administer over 60 Minutes, As needed, POTASSIUM REPLACEMENT, Starting on 09/19/24 at 0258, IV if unable to use oral/enteral with the current dosing strategies For potassium level 3.4 to 3.7 mmol/L =20 mEq. For potassium level 3.1 to 3.3 mmol/L =40 mEq. For potassium level 3 mmol/L or less =60 mEq. Use central line when applicable. Recheck potassium level 1 hour after total IVPB infusion complete With each potassium result continue the replacement orders as needed VESICANT (YELLOW) Infuse each 10 mEq over a minimum of 1 hour. Group 4: sodium phosphate 20 mmol in sodium chloride 0.9 % 250 mL IVPBJump to med 20 mmol, intravenous, at 42.8 mL/hr, Administer over 6 Hours, As needed, for phosphorus level 2.3 mg/dL or less, Starting on 09/19/24 at 0258, Administer over 6 hours via dedicated line (peripheral line). If administered, recheck phosphorus level 4 hours after infusion complete. Or sodium phosphate 20 mmol in sodium chloride 0.9 % 100 mL IVPBJump to med 20 mmol, intravenous, at 26.7 mL/hr, Administer over 4 Hours, As needed, for phosphorus level 2.3 mg/dL or less.Do not administer if potassium is more than 4.5, Starting on 09/19/24 at 0258, Administer over 4 hours via dedicated line (central line). If administered, recheck phosphorus level 4 hours after infusion complete. Infuse using central line access. Or sod phos di, mono-K phos mono (K-PHOS NEUTRAL) 250 mg tablet 2 tabletJump to med 2 tablet, oral, As needed, for phosphorus level 2.3 mg/dL or less., Starting on 09/19/24 at 0258, If dose administered, recheck phosphorus level 4 hours after last dose. Look-alike/sound-alike medication - verify indication for use. Give with a full glass of water. FOR RECORDS PERTAINING TO PATIENTS WHO ARE [...] BE BASED ON THE PRIMARY CLINICAL RECORDS. [facility] (app) [facility]. provides no warranty or guarantee of the accuracy or completeness of information in this document.
[2024-10-17] MEDS: METHYLPREDNISOLONE SOD SUCC PF 125 MG/2 ML VIAL IVP (02:56)
[2024-10-17] MEDS: FUROSEMIDE 40 MG/4 ML VIAL IVP (02:56)
[2024-10-17 03:16] LABS: Basophils Percent Auto 0.5 % (0.2-2.0); Eosinophils Absolute Auto 0.2 10^3/uL (0.0-0.7); Eosinophils Percent Auto 2.8 % (0.9-7.0); Hematocrit 30.7 % (36.0-48.0); Hemoglobin 9.2 g/dL (12.0-16.0); Immature Granulocytes Abs Auto 0.08 10^3/uL (0.00-0.03); Immature Granulocytes Pct Auto 0.9 % (0.0-0.5); Lymphocytes Absolute Auto 0.7 10^3/uL (1.2-3.8); Lymphocytes Percent Auto 8.5 % (20.5-60.0); Mean Corpuscular Hemoglobin 28.8 pg (26.7-34.0); Mean Corpuscular Volume 96.2 fL (81.0-99.0); Mean Platelet Volume 10.4 fL (9.5-13.5); Monocytes Absolute Auto 0.6 10^3/uL (0.3-0.8); Monocytes Percent Auto 7.3 % (1.7-12.0); Neutrophils Absolute Auto 6.9 10^3/uL (1.4-6.5); Platelet Count 166 10^3/uL (150-450); Red Blood Count 3.19 10^6/uL (4.20-5.40); Red Cell Distribution Width 19.2 % (11.0-15.0); White Blood Count 8.6 10^3/uL (4.0-11.0)
[2024-10-17 03:20] LABS: ABG PCO2 46.7 mmHg (35.0-45.0); Base Excess ABG 0.3 mmol/L (-2.0-2.0); HCO3 ABG 25.9 mmol/L (22.0-26.0); Oxygen Saturation ABG 95.2 %; PO2 ABG 76.2 mmHg (80.0-100.0); pH ABG 7.352 (7.350-7.450)
[2024-10-17 03:21] LABS: Allen Test POSITIVE (POSITIVE); BIPAP Pressure 16/8; Fractionated Inspired Oxygen 30 %; Puncture Site L RADIAL; Rate 16
[2024-10-17 03:22] LABS: O2 Mode BIPAP
[2024-10-17 03:35] LABS: Alanine Aminotransferase 35 U/L (14-59); Albumin Globulin Ratio 0.5; Albumin Level 1.9 g/dL (3.4-5.0); Alkaline Phosphatase 108 U/L (46-116); Anion Gap 11.1; Aspartate Amino Transferase 20 U/L (15-37); BUN Creatinine Ratio 11.1; Bilirubin Total 0.4 mg/dL (0.2-1.0); Calcium 8.4 mg/dL (8.5-10.1); Carbon Dioxide 30.2 mmol/L (21.0-32.0); Chloride 108 mmol/L (98-107); Estimated GFR (African America >60 (>=60 mL/min/1.73m^2); Estimated GFR (Non-African Ame >60 (>=60 mL/min/1.73m^2); Globulin 4.1 g/dL; Glucose 140 mg/dL (74-106); Potassium 4.3 mmol/L (3.5-5.1); Sodium 145 mmol/L (136-145); Troponin I High Sensitivity 28.1 pg/mL (4.0-51.3)
--- NOTE | 2024-10-17 03:44 | ED_ITS ---
HPI - SOB/Dyspnea General Chief Complaint: Shortness of Breath/Dyspnea Stated Complaint: SHORT OF BREATH Time Seen by Provider: 10/17/24 02:11 Source: patient Mode of arrival: ambulance Limitations: no limitations History of Present Illness HPI Narrative: cc - shortness of breath 54-year-old female who underwent brain tumor removal and now is rehabbing at [facility] was brought in by ambulance for evaluation after she developed shortness of breath. The patient is able to talk to us and told me that the shortness of breath has been increasing over the last 1 to 2 days. She notes that the swelling in both legs is new for her. No prior history of A-fib or CHF. She told me that about 8 or 9 years ago she had to be on CPAP because of emphysema and COPD which she described as early . She said that she got a breathing treatment at the [place] prior to EMS arrival and then again by EMS. She denied any fever or chills. No cough. No GI or symptoms. No chest pain or palpitations. Related Data Home Medications ?Medication ?Instructions ?Recorded ?Confirmed aripiprazole 10 mg tablet 10 mg PO DAILY 08/23/2411/11 buspirone 5 mg tablet 5 mg PO BID 08/23/24 5 buspirone 7.5 mg tablet 7.5 mg PO Q8H PRN anxiety 08/23/24 cetirizine 10 mg tablet 10 mg PO DAILY 08/23/2411/11 escitalopram oxalate 10 mg tablet 10 mg PO DAILY 08/2308/23/24 mirtazapine 15 mg tablet 15 mg PO .hs 08/23/24 nystatin 100,000 unit/gram topical 1 applic topical DA TOM 08/23/24 08/23/24 powder (Ksamy) acetaminophen 325 mg tablet 650 mg PO Q6H PRN pain 10/17/24 (Tylenol) levetiracetam 500 mg tablet 500 mg PO Q12H 10/17/24 metoprolol tartrate 25 mg tablet 25 mg PO Q12H 5 10/17/24 mirtazapine 15 mg disintegrating 15 mg PO HS 10/17/24 10/17/24 tablet sennosides 8.6 mg-docusate sodium 2 tab-cap PO DAILY 0 10/17/24 10/17/24 50 mg tablet (Senna Plus) trazodone 50 mg tablet 25 mg PO HS 10/17/24 5 Previous Rx's ?Medication ?Instructions ?Recorded ciprofloxacin HCl 500 mg tablet 500 mg PO Q12H 7 days #14 tabs 08/24/24 dicyclomine 10 mg capsule 10 mg PO TID PRN abdominal p ain 08/25/24 #10 caps Allergies Allergy/AdvReac Type Severity Reaction Status Date / Time No Known Drug Allergies Allergy Verified 10/17/24 02:15 [facility] Medical History (Updated 10/17/24 @ 04:04 by Meera Jefferson) Bladder dysfunction ?N31.9 - Neuromuscular dysfunction of bladder, unspecified (ICD-10) Weakness ?R53.1 - Weakness (ICD-10) Dysphagia ?R13.10 - Dysphagia, unspecified (ICD-10) Rhabdomyolysis ?M62.82 - Rhabdomyolysis (ICD-10) Muscle weakness ?M62.81 - Muscle weakness (generalized) (ICD-10) Depression ?F32.A - Depression, unspecified (ICD-10) Sleep apnea ?G47.30 - Sleep apnea, unspecified (ICD-10) Insomnia ?G47.00 - Insomnia, unspecified (ICD-10) Anxiety ?F41.9 - Anxiety disorder, unspecified (ICD-10) Panic disorder ?F41.0 - Panic disorder [episodic paroxysmal anxiety] (ICD-10) Hyperlipemia ?E78.5 - Hyperlipidemia, unspecified (ICD-10) Hypertension ?I10 - Essential (primary) hypertension (ICD-10) Nutritional deficiency ?E63.9 - Nutritional deficiency, unspecified (ICD-10) Bipolar 1 disorder ?F31.9 - Bipolar disorder, unspecified (ICD-10) Pressure injury of sacral region, stage 2 ?L89.152 - Pressure ulcer of sacral region, stage 2 (ICD-10) Obesity ?E66.9 - Obesity, unspecified (ICD-10) Multiple sclerosis ?G35 - Multiple sclerosis (ICD-10) Social History Highest level of school completed/degree received: high school graduate Little interest or pleasure in doing things: not at all Feeling down, depressed, or hopeless: not at all Exam Narrative Exam Narrative: Nurses notes and vital signs reviewed and patient is not hypoxic. afebrile General: Tachypneic with respiratory distress. Skin: Warm, dry, no pallor noted. No rash. Head: The right side of her head is shaved and she has a healing scar near complete [place] on the right side of her scalp. Remainder of the face and scalp are normocephalic, atraumatic. Neck/Thyoid: Her obesity prohibits me from identifying any JVD Eye: Pupils are equal, round and EOMI. No scleral icterus. Ears, Nose, Mouth, and Throat: Oral mucosa is moist Cardiovascular: Tachycardia. Respiratory: Accessory muscle use with respiratory distress. Lungs with bibasilar rales. Increased work of breathing. Tachypnea. Musculoskeletal: normal ROM, no calf or popliteal tenderness. 2+ pitting bilateral lower extremity edema/swelling GI: Abdomen is soft, non-distended. Normal bowel sounds. No tenderness to palpation. No rebound, guarding, or rigidity noted. Neurological: A&O x4. No cranial nerve dysfunction observed. No truncal ataxia. Moves all extremities. Sensation intact. Psychiatric: Cooperative and interactive. Normal mood and affect. Constitutional Vital Signs, click to edit/add: Last Vital Signs Temp 99.1 F 10/17/24 02:11 Pulse 101 H 10/17/24 04:10 Resp 13 10/17/24 04:10 BP 144/100 H 10/17/24 02:11 Pulse Ox 95 10/17/24 04:10 O2 Del Method BIPAP 10/17/24 02:40 FiO2 30 10/17/24 02:27 Course Vital Signs Vital signs: Vital Signs Temperature 99.1 F 10/17/24 02:11 Pulse Rate 116 H 10/17/24 02:11 Respiratory Rate 24 H 10/17/24 02:11 Blood Pressure 144/100 H 10/17/24 02:11 Pulse Oximetry 85 L 10/17/24 02:11 Oxygen Delivery Method Room Air 10/17/24 02:11 Temperature 99.1 F 10/17/24 02:11 Pulse Rate 101 H 10/17/24 04:10 Respiratory Rate 13 10/17/24 04:10 Blood Pressure 144/100 H 10/17/24 02:11 Pulse Oximetry 95 10/17/24 04:10 Oxygen Delivery Method BIPAP 10/17/24 02:40 Fraction of Inspired Oxygen 30 10/17/24 02:27 MDM - SOB/Dyspnea MDM Narrative Medical decision making narrative: Patient was placed on quality assurance monitor chassis and EKG obtained. Blood drawn and sent for evaluation. I asked them to move her from room 11 to room 4. BiPAP was initiated. Respiratory therapist obtained an ABG. Portable chest x-ray was obtained. She was ordered to receive 40mg Lasix IV, IV solumedrol. She had already received albuterol nebulizer treatment and a DuoNeb treatment within the last 30 minutes prior to arrival. Chest x-ray reveals cephalization indicative of CHF. BNP was elevated at 2486 consistent with the chest x-ray findings and physical exam findings. CBC revealed a normal white blood cell count. Hemoglobin decreased at 9.2. Platelet count 166, normal. Electrolytes are normal with the exception of chloride which is elevated at 108. Normal BUN and creatinine were noted. Negative lactate at 1. Lactate is unremarkable. ABG equals pH 7.35, PaCO2 46.7, PaO2 76.2, O2 sat 95.2% on BiPAP. Message sent to the tele-hospitalist to discuss admission. Lucía and I discussed the case and she agreed to admit the patient to stepdown unit for further monitoring and treatment. The patient will stay on BiPAP. Medical Records Attestation: I reviewed the patient's medical records. Lab Data Attestation: I reviewed the patient's lab results. Labs: Lab Results 10/17/24 10/17/24 Range/Units 02:50 03:10 WBC 8.6 (4.0-11.0) 10^3/uL RBC 3.19 L (4.20-5.40) 10^6/uL Hgb 9.2 L (12.0-16.0) g/dL Hct 30.7 L (36.0-48.0) % MCV 96.2 (81.0-99.0) fL MCH 28.8 (26.7-34.0) pg MCHC 30.0 (29.9-35.2) g/dL RDW 19.2 H (11.0-15.0) % Plt Count 166 (150-450) 10^3/uL MPV 10.4 (9.5-13.5) fL Neut % (Auto) 80.0 H (43.0-75.0) % Lymph % (Auto) 8.5 L (20.5-60.0) % [place] % (Auto) 7.3 (1.7-12.0) % Eos % (Auto) 2.8 (0.9-7.0) % Baso % (Auto) 0.5 (0.2-2.0) % Neut # (Auto) 6.9 H (1.4-6.5) 10^3/uL Lymph # (Auto) 0.7 L (1.2-3.8) 10^3/uL [place] # (Auto) 0.6 (0.3-0.8) 10^3/uL Eos # (Auto) 0.2 (0.0-0.7) 10^3/uL Baso # (Auto) 0.0 (0.0-0.1) 10^3/uL Abs Immat Gran (auto) 0.08 H (0.00-0.03) 10^3/uL Imm/Tot Granulo (auto) 0.9 H (0.0-0.5) % Puncture Site L radial ABG pH 7.352 (7.350-7.450) ABG pCO2 46.7 H (35.0-45.0) mmHg ABG pO2 76.2 L (80.0-100.0) mmHg ABG HCO3 25.9 (22.0-26.0) mmol/L ABG O2 Saturation 95.2 % ABG Base Excess 0.3 (-2.0-2.0) mmol/L Quinten Test Positive (POSITIVE) FiO2 30 % BiPAP 16/8 Sodium 145 (136-145) mmol/L Potassium 4.3 (3.5-5.1) mmol/L Chloride 108 H (98-107) mmol/L Carbon Dioxide 30.2 (21.0-32.0) mmol/L Anion Gap 11.1 BUN 9.0 (7.0-18.0) mg/dL Creatinine 0.81 (0.55-1.02) mg/dL Est GFR ( Amer) >60 (>=60 mL/min/1.73m^2) Est GFR (Non-Af Amer) >60 (>=60 mL/min/1.73m^2) BUN/Creatinine Ratio 11.1 Glucose 140 H (74-106) mg/dL Lactate 1.0 (0.4-2.0) mmol/L Calcium 8.4 L (8.5-10.1) mg/dL Total Bilirubin 0.4 (0.2-1.0) mg/dL AST 20 (15-37) U/L ALT 35 (14-59) U/L Alkaline Phosphatase 108 (46-116) U/L Troponin I High Sens 28.1 (4.0-51.3) pg/mL NT-Pro-B Natriuret Pep 2486.0 H* (<=900.0) pg/mL Total Protein 6.0 L (6.4-8.2) g/dL Albumin 1.9 L (3.4-5.0) g/dL Globulin 4.1 g/dL Albumin/Globulin Ratio 0.5 ABG Data ABG results: ABG equals pH 7.35, PaCO2 46.7, PaO2 76.2, O2 sat 95.2% on BiPAP. Attestation: I personally reviewed and interpreted this ABG as follows: Interpretation: Respiratory acidosis secondary to CO2 retention and associated hypoxemia Imaging Data Chest x-ray: My impression: Cephalization indicative of pulmonary edema/CHF. ECG Data Attestation: I personally reviewed and interpreted this ECG as follows: Interpretation: EKG interpretation: Emergency Department physician interpretation. Sinus tachycardia at [address] to T wave changes with possible atrial abnormality but no ST elevation or deep ischemic change. Discharge Plan Discharge Chief Complaint: Shortness of Breath/Dyspnea Clinical Impression: Respiratory failure, Congestive heart failure, Chronic obstructive pulmonary disease with (acute) exacerbation, Edema, peripheral Patient Disposition: Admitted As Inpatient Time of Disposition Decision: 03:53
[2024-10-17 07:10] LABS: PCO2 VBG 41.6 mmHg (40.0-52.0); pH VBG 7.418 (7.330-7.430)
[2024-10-17 07:28] LABS: Troponin I High Sensitivity 35.7 pg/mL (4.0-51.3)
--- OUTSIDE RECORDS SUMMARY | 2024-10-17 07:36 | XMS_ITS | CCD ---
Author Organization [facility] Care Team Providers Care Clothes Separator Name Role Phone August FINANCIAL INSTITUTION MANAGER Unavailable Unavailable August FINANCIAL INSTITUTION MANAGER Unavailable Unavailable August FINANCIAL INSTITUTION MANAGER Unavailable Unavailable MarcoPhyliciaJaleesa Unavailable [facility] Primary Care Provider MD Liyah Rosa Attending Provider [phone] Valdez Acosta MD Primary Care Provider Liyah Rosa Unavailable Valdez Acosta MD Primary Care Provider [phone] Valdez Acosta MD Primary Care Provider AICHHOLZ, FINANCIAL INSTITUTION MANAGER FRED Admitting Unavailable AICHHOLZ, FINANCIAL INSTITUTION MANAGER FRED Attending Unavailable AICHHOLZ, FINANCIAL INSTITUTION MANAGER FRED Primary Care Unavailable DORAN ., YAHAIRA Consulting Unavailable TAMLYN ., YAHAIRA Admitting Unavailable TAMLYN ., YAHAIRA Attending Unavailable AICHHOLZ, FINANCIAL INSTITUTION MANAGER FRED Primary Care Unavailable TAMLYN ., YAHAIRA Consulting Unavailable THEA LYNN Consulting Unavailable YASH CALLAHAN Consulting Unavailable AICHHOLZ, FINANCIAL INSTITUTION MANAGER FRED Admitting Unavailable AICHHOLZ, FINANCIAL INSTITUTION MANAGER FRED Attending Unavailable AICHHOLZ, FINANCIAL INSTITUTION MANAGER FRED Primary Care Unavailable AICHHOLZ, FINANCIAL INSTITUTION MANAGER FRED Consulting Unavailable AICHHOLZ, FINANCIAL INSTITUTION MANAGER FRED Admitting Unavailable AICHHOLZ, FINANCIAL INSTITUTION MANAGER FRED Attending Unavailable AICHHOLZ, FINANCIAL INSTITUTION MANAGER FRED Primary Care Unavailable AICHHOLZ, FINANCIAL INSTITUTION MANAGER FRED Consulting Unavailable DR TULIO BULL Admitting Unavailable DR TULIO BULL Attending Unavailable AICHHOLZ, FINANCIAL INSTITUTION MANAGER FRED Primary Care Unavailable DR TULIO BULL Consulting Unavailable Aichholz COMPUTER SYSTEMS SOFTWARE ENGINEER, Fred Unavailable Myla BENITEZ, Maxim Primary Care [...] Unavailable August Primary Care Physician Unavailab le [facility] Primary Care Unavailable Brooks, Eliazar T Referring Unavailable Brooks, Eliazar T Attending Unavailable Brooks, Eliazar T Admitting Unavailable NONE, XXXX Primary Care Physician Unavailab Keli Montanez Unavailable Unavailable [employer] COMPUTER SYSTEMS SOFTWARE ENGINEER, Fred Unavailable Myla BENITEZ, Maxim Primary Care Provider Sarah FIGUEROA, Sherrie Unavailable John ON SITE COORDINATOR.FINANCIAL INSTITUTION MANAGER, Elizabeth Lantigua Unavailable SHERRIE BOONE Attending Unavailabl [...] Unavailable BROOKS, ELIAZAR T Attending Unavailable BROOKS, LEIAZAR T Referring Unavailable ARIA KUMAR Attending Unavailable [...] Attending Unavailable Tripp Gruber MD Attending Provider [phone] Tripp Gruber Attending Unavailable Tripp Gruber Admitting Unavailable AICHHOLLee, FRED Abarca Primary Care Unavailable KENROY PÉREZ Admitting Unavailable ONLY), IP [facility] (INPATIENT Consult ing Unavailable СЕРГЕЙ LYNCH Attending Unavailable TAHIR, UMNIRA Attending Unavailable TAHIR, MUNIRA Referring Unavailable AICHHOLZ, FRED Tevin Primary Care Unavailable TAHIR, MUNIRA Attending Unavailable TAHIR, MUNIRA Referring Unavailable AICHHOLZ, FRED J Primary Care Unavailable [facility]z ON SITE COORDINATOR-FINANCIAL INSTITUTION MANAGER, Fred J Primary Care Provider ADONAY CASTILLO Attending Unavailable AICHHOLZ, FRED J Referring Unavailable AICHHOLZ, FRED J Primary Care Unavailable PROVIDER, UNKNOWN Attending Unavailable PROVIDER, UNKNOWN Admitting Unavailable AICHHOLZ, FRED J Referring Unavailable AICHHOLZ, FRED J Primary Care Unavailable AICHHOLZ, FRED J Referring Unavailable AICHHOLZ, FRED J Primary Care Unavailable Aichholz ON SITE COORDINATOR-FINANCIAL INSTITUTION MANAGER, Fred J Primary Care Provider Aichholz ON SITE COORDINATOR-FINANCIAL INSTITUTION MANAGER, Fred J Primary Care Provider REGINA MATTHEWS [...] Environmental Allergies Allergy to substance [facility] Work Phone: (2 sources) Acetaminophen / HYDROcodone; Translations: [Vicodin] Drug Allergy [facility] Repository (2 sources) Penicillins; Translations: [penicillins] Propensity to adverse reactions (disorder) [facility] Repository Medications Current Medications Medication Drug Class(es) Dates Sig (Normalized) Sig (Original) acetaminophen 1000 mg oral tablet (20 sources) Start: 06-30-2016 take 1000 mg by mouth every six hours as needed for pain Tylenol 1,000 mg, Oral, q6hr, PRN as needed for pain Start Date: 06/30/16 Status: Ordered take 2 tablets by [facility] every six hours as needed for pain [...] hours as needed for shoulder surgical pain., [employer] #[id number], 167.7, cm, 02/05/24 11:09:00 EDT, Height/Length Dosing, 131.3, kg, 02/05/24 11:09:00 EDT, Weight Dosing Start Date: 02/06/24 Status: Ordered Start: 02-06-2024 End: 04-15-2024 Percocet 5-325 MG tablet See Instructions, 40 tab(s), Refill(s) 0, Take one to two oral every 4 hours as needed for shoulder surgical pain., [employer] #72, 167.7, cm, 02/05/24 11:09:00 EDT, Height/Length Dosing, 131.3, kg, 02/05/24 11:09:00 EDT, Weight Dosing 02/06/2024 04/15/2024 Discontinued (Therapy completed) [id number] 200 actuat albuterol 0.09 mg/actuat metered dose [...] oral solution (1 source) alpha-Adrenergic Agonist, Uncompetitive Z-atcoko-J-aspartat e Receptor Antagonist, Sigma-1 Agonist Start: 04-15-2024 [...] Ordered docusate sodium 50 mg / sennosides, prison 8.6 mg oral tablet (5 sources) Start: [...] Antifungal Start: 08-23-2024 End: 08-23-2025 nystatin (Mycostatin) 300690 UNIT/GM powder Indications: Yeast dermatitis Apply topically 2 (two) times a day 60 g 1 08/23/2024 08/23/2025 Active Start: 03-05-2024 End: 03-20-2024 nystatin (Mycostatin) 277199 UNIT/GM powder Indications: Candidiasis of skin Apply topically 2 (two) times a day for 15 days Apply to affected areas 60 g 1 03/05/2024 03/20/2024 Active End: 03-05-2024 nystatin (Mycostatin) 499837 UNIT/GM powder Apply topically 2 (two) times [...] mg 24 hr tablet polyethylene glycol 3350 32581 mg powder for oral solution (1 source) [...] End: 06-14-2018 TRAZODONE 50 mg [facility] 019 - 06/14/2018 Provider: Start: 05-30-2017 End: 05-30-2017 TRAZODONE 50 mg [facility] 018 - 05/30/2017 Provider: vitamin B12 (12 sources) Vitamin B12 Start: 02-05-2024 take 2500 ug under the tongue once daily Vitamin B12 2,500 mcg, SubLingual, Daily, Refills(s) 0, Prophylaxis Start Date: 02/05/24 Status: Ordered take 1 tablet by mouth once dot y cyanocobalamin (VITAMIN B-12) 1,000 mcg tab Take 1,000 mcg by mouth once daily. Active Comment on above: Take 1,000 mcg by [facility] once daily. Vitamin D (2 sources) [...] th once daily. Take [address] tablet [address] [facility] once daily betamethasone 3 mg/ml / [...] Provider: Start: 06-30-2016 take 2 tablets by [facility] twice daily as needed for muscle [...] choosing us for your care. Normal [facility] BASIC METABOLIC PANELon 05-1 Anion gap [Moles/Vol] 11 mmol/L Normal 5-15 [facility] Comment on above: Performed By: #### P INR #### [facility] ([facility]) [address] [place] [address] VIR Calcium [Mass/Vol] 8.8 mg/dL Normal 8.5-10.5 [facility] Comment on above: Performed By: #### P INR #### [facility] ([facility]) [address] [place] [address] VIR Chloride [Moles/Vol] 106 mmol/L Normal 98-109 [facility] Comment on above: Performed By: #### P INR #### [facility] ([facility]) [address] [place] [address] VIR CO2 [Moles/Vol] 23 mmol/L Normal 22-32 [facility] Comment on above: Performed By: #### P INR #### [facility] ([facility]) [address] [place] [address] VIR Creatinine [Mass/Vol] 0.74 mg/dL Normal 0.40-1.00 [facility] Comment on above: Result Comment: METH OD TRACEABLE TO IDMS STANDARD Performed By: #### P INR #### [facility] ([facility]) [address] [place] [address] VIR EGFR (CKD-EPI) NON-RACE DEPENDENT >^90 Normal >=60 [facility] Comment on above: Result Comment: Repo rted eGFR is based on the CKD-EPI 2020 equation that does not use a race coefficient. Performed By: #### P INR #### [facility] ([facility]) [address] [place] [address] VIR Glucose [Mass/Vol] 94 mg/dL Normal 65-99 [facility] Comment on above: Performed By: #### P INR #### [facility] ([facility]) [address] [place] [address] VIR Potassium [Moles/Vol] 4.4 mmol/L Normal 3.5-5.0 [facility] Comment on above: Performed By: #### P INR #### [facility] ([facility]) [address] [place] [address] VIR Sodium [Moles/Vol] 140 mmol/L Normal 134-146 [facility] Comment on above: Performed By: #### P INR #### [facility] ([facility]) [address] [place] [address] VIR Urea nitrogen [Mass/Vol] 26 mg/dL High 5-23 [facility] Comment on above: Performed By: #### P INR #### [facility] ([facility]) [address] [place] [address] VIR Basic Metabolic Panelon 09-17 Anion gap [Moles/Vol] 11 mmol/L 5 - 15 mmol/L [facility] Calcium [Mass/Vol] 8.8 mg/dL 8.5 - 10. 5 mg/dL [facility] Chloride [Moles/Vol] 106 mmol/L 98 - 10 9 mmol/L [facility] CO2 [Moles/Vol] 23 mmol/L 22 - 32 mmol/L [facility] Creatinine [Mass/Vol] 0.74 mg/dL 0.40 - 1.00 mg/dL [facility] EGFR Non-Race Dependent - PINF [facility] Glucose [Mass/Vol] 94 mg/dL 65 - 99 mg/dL [facility] Interpretation and review of laboratory results Abnormal [facility] Potassium [Moles/Vol] 4.4 mmol/L 3.5 - 5.0 mmol/L [facility] Sodium [Moles/Vol] 140 mmol/L 134 - 146 mmol/L [facility] Urea nitrogen [Mass/Vol] 26 mg/dL High 5 - 23 mg/dL [facility] CBC WITH AUTO DIFFERENTIALon 09-28-2024 BASOPHILS ABSOLUTE COUNT (10*3/UL) BY AUTOMATED COUNT 0.0 10*3/uL Normal 0.0-0.2 [facility] Comment on above: Result Comment: This is an appended report. These results have been appended to a previously preliminary verified report. Performed By: #### P INR #### [facility] ([facility]) [address] [place] [address] VIR BASOPHILS RELATIVE PERCENT BY AUTOMATED COUNT 0.1 % Normal [facility] Comment on above: Result Comment: This is an appended report. These results have been appended to a previously preliminary verified report. Performed By: #### P INR #### [facility] ([facility]) [address] [place] [address] VIR CELLAVISION DIFFERENTIAL TYPE AUTOMATED DIFFERENTIAL Normal [facility] Comment on above: Result Comment: This is an appended report. These results have been appended to a previously preliminary verified report. Performed By: #### P INR #### [facility] ([facility]) [address] [place] [address] VIR Eosinophils (Bld) [#/Vol] 0.0 10*3/uL Normal 0.0-0.4 [facility] Comment on above: Result Comment: This is an appended report. These results have been appended to a previously preliminary verified report. Performed By: #### P INR #### [facility] ([facility]) [address] [place] [address] VIR EOSINOPHILS RELATIVE PERCENT BY AUTOMATED COUNT 0.1 % Normal [facility] Comment on above: Result Comment: This is an appended report. These results have been appended to a previously preliminary verified report. Performed By: #### P INR #### [facility] ([facility]) [address] [place] [address] VIR Erythrocyte distribution width (RBC) [Ratio] 16.4 % High 11.5-15 [facility] Comment on above: Performed By: #### P INR #### [facility] ([facility]) [address] [place] [address] VIR Hematocrit (Bld) [Volume fraction] 35.5 % Normal 35-47 [facility] Comment on above: Performed By: #### P INR #### [facility] ([facility]) [address] [address] VIR Hemoglobin (Bld) [Mass/Vol] 11.5 g/dL Low 11.7-15.5 [facility] Comment on above: Performed By: #### P INR #### [facility] ([facility]) [address] [address] VIR LYMPHOCYTES ABSOLUTE COUNT (10*3/UL) BY AUTOMATED COUNT 1.3 10*3/uL Normal 1.0-3.5 [facility] Comment on above: Result Comment: This is an appended report. These results have been appended to a previously preliminary verified report. Performed By: #### P INR #### [facility] ([facility]) [address] [address] VIR LYMPHOCYTES RELATIVE PERCENT BY AUTOMATED COUNT 8.3 % Normal [facility] Comment on above: Result Comment: This is an appended report. These results have been appended to a previously preliminary verified report. Performed By: #### P INR #### [facility] ([facility]) [address] [address] VIR MCH (RBC) [Entitic mass] 27.0 pg Normal 27-34 [facility] Comment on above: Performed By: #### P INR #### [facility] ([facility]) [address] [address] VIR MCHC (RBC) [Mass/Vol] 32.5 g/dL Normal 32-36 [facility] Comment on above: Performed By: #### P INR #### [facility] ([facility]) [address] [place] [address] VIR MCV (RBC) [Entitic vol] 83 fL Normal 80-100 [facility] Comment on above: Performed By: #### P INR #### [facility] ([facility]) [address] [place] [address] VIR MONOCYTES ABSOLUTE COUNT (10*3/UL) BY AUTOMATED COUNT 1.8 10*3/uL High 0.0-0.9 [facility] Comment on above: Result Comment: This is an appended report. These results have been appended to a previously preliminary verified report. Performed By: #### P INR #### [facility] ([facility]) [address] [place] [address] VIR MONOCYTES RELATIVE PERCENT BY AUTOMATED COUNT 11.3 % Normal [facility] Comment on above: Result Comment: This is an appended report. These results have been appended to a previously preliminary verified report. Performed By: #### P INR #### [facility] ([facility]) [address] [place] [address] VIR NEUTROPHILS ABSOLUTE COUNT BY AUTOMATED COUNT 12.4 10*3/uL High 1.5-6.6 [facility] Comment on above: Result Comment: This is an appended report. These results have been appended to a previously preliminary verified report. Performed By: #### P INR #### [facility] ([facility]) [address] [place] [address] VIR NEUTROPHILS RELATIVE PERCENT BY AUTOMATED COUNT 80.2 % Normal [facility] Comment on above: Result Comment: This is an appended report. These results have been appended to a previously preliminary verified report. Performed By: #### P INR #### [facility] ([facility]) [address] [place] [address] VIR Platelet mean volume (Bld) [Entitic vol] 10.7 fL Normal 7-12 [facility] Comment on above: Performed By: #### P INR #### [facility] ([facility]) [address] [place] [address] VIR Platelets (Bld) [#/Vol] 115 10*3/uL Low 150-450 [facility] Comment on above: Performed By: #### P INR #### [facility] ([facility]) [address] [place] [address] VIR RBC COUNT 4.27 X10E12/L Normal 3.8-5.2 [facility] Comment on above: Performed By: #### P INR #### [facility] ([facility]) [address] [place] [address] VIR WBC (Bld) [#/Vol] 15.5 10*3/uL High 4-11 [facility] Comment on above: Performed By: #### P INR #### [facility] ([facility]) [address] [place] [address] VIR CBC auto differentialon 09-17 Basophils (Bld) [#/Vol] 0 10*3/uL 0.0 - 0.2 10*3/uL [facility] Basophils/100 WBC (Bld) 0.1 % [facility] Differential cell count method Nom (Bld) AUTOMATED DIFFERENTIAL [facility] Eosinophils (Bld) [#/Vol] 0 10*3/uL 0.0 - 0.4 10*3/uL [facility] Eosinophils/100 WBC (Bld) 0.1 % [facility] Erythrocyte distribution width (RBC) [Ratio] 16.4 % High 11.5 - 15 % [facility] Hematocrit (Bld) [Volume fraction] 35.5 % 35 - 47 % [facility] Hemoglobin (Bld) [Mass/Vol] 11.5 g/dL Low 11.7 - 15.5 g/dL [facility] Interpretation and review of laboratory results Abnormal [facility] Lymphocytes (Bld) [#/Vol] 1.3 10*3/uL 1.0 - 3.5 10*3/uL [facility] Lymphocytes/100 WBC (Bld) 8.3 % [facility] MCH (RBC) [Entitic mass] 27 pg 27 - 34 pg [facility] MCHC (RBC) [Mass/Vol] 32.5 g/dL 32 - 3 6 g/dL [facility] MCV (RBC) [Entitic vol] 83 fL 80 - 100 fL [facility] Monocytes (Bld) [#/Vol] 1.8 10*3/uL High 0.0 - 0.9 10*3/uL [facility] Monocytes/100 WBC (Bld) 11.3 % [facility] Neutrophils (Bld) [#/Vol] 12.4 10*3/uL High 1.5 - 6.6 10*3/uL [facility] Neutrophils/100 WBC (Bld) 80.2 % [facility] Platelet mean volume (Bld) [Entitic vol] 10.7 fL 7 - 12 fL [facility] Platelets (Bld) [#/Vol] 115 10*3/uL Low [facility] RBC (Bld) [#/Vol] 4.27 10*6/uL [facility] WBC LM Ql (Sput) 15.5 High [facility] FL SWALLOW MOTILITY FUNCTION on 09-28-2024 [...] Arroyo MD on 09/28/2024 3:08 PM Normal [facility] IONIZED CALCIUMon 09-28-2024 IONIZED CALCIUM - ICAN 4.3 mg/dL Low 4.5-5.3 [facility] Comment on above: Performed By: #### P INR #### [facility] ([facility]) [address] [place] [address] VIR Ionized calciumon 09-28-2024 Calcium.ionized ISE [Moles/Vol] 4.3 mg/dL Low 4.5 - 5.3 mg/dL [facility] Interpretation and review of laboratory results Abnormal [facility] MAGNESIUMon 09-28-2024 Magnesium [Mass/Vol] 1.8 mg/dL Normal 1.8-2.6 [facility] Comment on above: Performed By: #### P INR #### [facility] ([facility]) [address] [place] [address] VIR Magnesiumon 09-28-2024 Magnesium [Mass/Vol] 1.8 mg/dL 1.8 - 2 .6 mg/dL [facility] No Panel Informationon 09-28 Interpretation and review of laboratory results Normal [facility] PHOSPHORUSon 09-28-2024 Phosphate [Mass/Vol] 2.6 mg/dL Normal 2.4-4.9 [facility] Comment on above: Performed By: #### P INR #### [facility] ([facility]) [address] [place] [address] VIR Phosphoruson 09-28-2024 Phosphate [Mass/Vol] 2.6 mg/dL 2.4 - 4 .9 mg/dL [facility] RF videography Hypopharynx a nd Esophagus Viewson 09-28-2024 SECTRAPACS [facility] Radiology Study observation (narrative) [facility] RF videography Hypopharynx a nd Esophagus ViewsOrdered By: Jayla Arroyo on 09-28-2024 [facility] Work Phone: BASIC METABOLIC PANELon 05 Anion gap [Moles/Vol] 10 mmol/L Normal 5-15 [facility] Comment on above: Performed By: #### P INR #### [facility] ([facility]) [address] [place] [address] VIR Calcium [Mass/Vol] 9.0 mg/dL Normal 8.5-10.5 [facility] Comment on above: Performed By: #### P INR #### [facility] ([facility]) [address] [place] [address] VIR Chloride [Moles/Vol] 109 mmol/L Normal 98-109 [facility] Comment on above: Performed By: #### P INR #### [facility] ([facility]) [address] [place] [address] VIR CO2 [Moles/Vol] 25 mmol/L Normal 22-32 [facility] Comment on above: Performed By: #### P INR #### [facility] ([facility]) [address] [place] [address] VIR Creatinine [Mass/Vol] 0.74 mg/dL Normal 0.40-1.00 [facility] Comment on above: Result Comment: METH OD TRACEABLE TO IDMS STANDARD Performed By: #### P INR #### [facility] ([facility]) [address] [place] [address] VIR EGFR (CKD-EPI) NON-RACE DEPENDENT >^90 Normal >=60 [facility] Comment on above: Result Comment: Repo rted eGFR is based on the CKD-EPI 2020 equation that does not use a race coefficient. Performed By: #### P INR #### [facility] ([facility]) [address] [place] [address] VIR Glucose [Mass/Vol] 101 mg/dL High 65-99 [facility] Comment on above: Performed By: #### P INR #### [facility] ([facility]) [address] [place] [address] VIR Potassium [Moles/Vol] 4.6 mmol/L Normal 3.5-5.0 [facility] Comment on above: Performed By: #### P INR #### [facility] ([facility]) [address] [place] [address] VIR Sodium [Moles/Vol] 144 mmol/L Normal 134-146 [facility] Comment on above: Performed By: #### P INR #### [facility] ([facility]) [address] [place] [address] VIR Urea nitrogen [Mass/Vol] 27 mg/dL High 5-23 [facility] Comment on above: Performed By: #### P INR #### [facility] ([facility]) [address] [place] [address] VIR Basic Metabolic Panelon 09-17 Anion gap [Moles/Vol] 10 mmol/L 5 - 15 mmol/L [facility] Calcium [Mass/Vol] 9 mg/dL 8.5 - 10. 5 mg/dL [facility] Chloride [Moles/Vol] 109 mmol/L 98 - 10 9 mmol/L [facility] CO2 [Moles/Vol] 25 mmol/L 22 - 32 mmol/L [facility] Creatinine [Mass/Vol] 0.74 mg/dL 0.40 - 1.00 mg/dL [facility] EGFR Non-Race Dependent - PINF [facility] Glucose [Mass/Vol] 101 mg/dL High 65 - 99 mg/dL [facility] Interpretation and review of laboratory results Abnormal [facility] Potassium [Moles/Vol] 4.6 mmol/L 3.5 - 5.0 mmol/L [facility] Sodium [Moles/Vol] 144 mmol/L 134 - 146 mmol/L [facility] Urea nitrogen [Mass/Vol] 27 mg/dL High 5 - 23 mg/dL [facility] CBC WITH AUTO DIFFERENTIALon 09-27-2024 CELLAVISION DIFFERENTIAL TYPE CELLAVISION DIFFERENTIAL Normal [facility] Comment on above: Result Comment: This is an appended report. These results have been appended to a previously preliminary verified report. Performed By: #### U LUDMILA #### [facility] ([facility]) [address] [place] [address] VIR CELLAVISION LYMPHOCYTES ABSOLUTE COUNT (10*3/UL) BY MANUAL COUNT 0.8 10*3/uL Low 1.0-3.5 [facility] Comment on above: Result Comment: This is an appended report. These results have been appended to a previously preliminary verified report. Performed By: #### U LUDMILA #### [facility] ([facility]) [address] [place] [address] VIR CELLAVISION LYMPHOCYTES RELATIVE PERCENT BY MANUAL COUNT 5 % Normal [facility] Comment on above: Result Comment: This is an appended report. These results have been appended to a previously preliminary verified report. Performed By: #### U LUDMILA #### [facility] ([facility]) [address] [place] [address] VIR CELLAVISION MONOCYTES ABSOLUTE COUNT (10*3/UL) IN BLOOD BY MANUAL COUNT 2.2 10*3/uL High 0.0-0.9 [facility] Comment on above: Result Comment: This is an appended report. These results have been appended to a previously preliminary verified report. Performed By: #### U LUDMILA #### [facility] ([facility]) [address] [place] [address] VIR CELLAVISION MONOCYTES RELATIVE PERCENT BY MANUAL COUNT 13 % Normal [facility] Comment on above: Result Comment: This is an appended report. These results have been appended to a previously preliminary verified report. Performed By: #### U LUDMILA #### [facility] ([facility]) [address] [place] [address] VIR CELLAVISION MYELOCYTE RELATIVE PERCENT BY MANUAL COUNT 1 % Normal [facility] Comment on above: Result Comment: This is an appended report. These results have been appended to a previously preliminary verified report. Performed By: #### U LUDMILA #### [facility] ([facility]) [address] [place] [address] VIR CELLAVISION NEUTROPHILS ABSOLUTE COUNT BY MANUAL COUNT 14.0 10*3/uL High 1.5-6.6 [facility] Comment on above: Result Comment: This is an appended report. These results have been appended to a previously preliminary verified report. Performed By: #### U LUDMILA #### [facility] ([facility]) [address] [place] [address] VIR CELLAVISION NEUTROPHILS RELATIVE PERCENT BY MANUAL COUNT 82 % Normal [facility] Comment on above: Result Comment: This is an appended report. These results have been appended to a previously preliminary verified report. Performed By: #### U LUDMILA #### [facility] ([facility]) [address] [place] [address] VIR Erythrocyte distribution width (RBC) [Ratio] 16.6 % High 11.5-15 [facility] Comment on above: Performed By: #### U LUDMILA #### [facility] ([facility]) [address] [place] [address] VIR Hematocrit (Bld) [Volume fraction] 34.3 % Low 35-47 [facility] Comment on above: Performed By: #### U LUDMILA #### [facility] ([facility]) [address] [place] [address] VIR Hemoglobin (Bld) [Mass/Vol] 11.3 g/dL Low 11.7-15.5 [facility] Comment on above: Performed By: #### U LUDMILA #### [facility] ([facility]) [address] [place] [address] VIR MCH (RBC) [Entitic mass] 27.3 pg Normal 27-34 [facility] Comment on above: Performed By: #### U LUDMILA #### [facility] ([facility]) [address] [place] [address] VIR MCHC (RBC) [Mass/Vol] 33.0 g/dL Normal 32-36 [facility] Comment on above: Performed By: #### U LUDMILA #### [facility] ([facility]) [address] [place] [address] VIR MCV (RBC) [Entitic vol] 83 fL Normal 80-100 [facility] Comment on above: Performed By: #### U LUDMILA #### [facility] ([facility]) [address] [place] [address] VIR Platelet mean volume (Bld) [Entitic vol] 11.6 fL Normal 7-12 [facility] Comment on above: Performed By: #### U LUDMILA #### [facility] ([facility]) [address] [place] [address] VIR Platelets (Bld) [#/Vol] 116 10*3/uL Low 150-450 [facility] Comment on above: Performed By: #### U LUDMILA #### [facility] ([facility]) [address] [place] [address] VIR RBC COUNT 4.14 X10E12/L Normal 3.8-5.2 [facility] Comment on above: Performed By: #### U LUDMILA #### [facility] ([facility]) [address] [place] [address] VIR WBC (Bld) [#/Vol] 17.1 10*3/uL High 4-11 [facility] Comment on above: Performed By: #### U LUDMILA #### [facility] ([facility]) [address] [place] [address] VIR CBC auto differentialon 09-17 Differential cell count method Nom (Bld) CELLAVISION DIFFERENTIAL [facility] Erythrocyte distribution width (RBC) [Ratio] 16.6 % High 11.5 - 15 % [facility] Hematocrit (Bld) [Volume fraction] 34.3 % Low 35 - 47 % [facility] Hemoglobin (Bld) [Mass/Vol] 11.3 g/dL Low 11.7 [...] System Monocytes/100 WBC (Bld) 13 % [facility] Myelocytes/100 WBC (Bld) 1 % [facility] Neutrophils (Bld) [#/Vol] 14 10*3/uL High 1.5 - 6.6 10*3/uL [facility] Neutrophils/100 WBC (Bld) 82 % [facility] Platelet mean volume (Bld) [Entitic vol] 11.6 fL 7 - 12 fL [facility] Platelets (Bld) [#/Vol] 116 10*3/uL Low [facility] RBC (Bld) [#/Vol] 4.14 10*6/uL [facility] Variant lymphocytes/100 WBC (Bld) 5 % [facility] WBC LM Ql (Sput) 17.1 High [facility] IONIZED CALCIUMon 09-27-2024 IONIZED CALCIUM - ICAN 4.8 mg/dL Normal 4.5-5.3 [facility] Comment on above: Performed By: #### U LUDMILA #### [facility] ([facility]) [address] [place] [address] VIR Ionized calciumon 09-27-2024 Calcium.ionized ISE [Moles/Vol] 4.8 mg/dL 4.5 - 5.3 mg/dL [facility] Interpretation and review of laboratory results Normal [facility] MAGNESIUMon 09-27-2024 Magnesium [Mass/Vol] 1.9 mg/dL Normal 1.8-2.6 [facility] Comment on above: Performed By: #### U LUDMILA #### [facility] ([facility]) [address] [place] [address] VIR Magnesiumon 09-27-2024 Magnesium [Mass/Vol] 1.9 mg/dL 1.8 - 2 .6 mg/dL [facility] No Panel Informationon 09-27 Interpretation and review of laboratory results Normal [facility] PHOSPHORUSon 09-27-2024 Phosphate [Mass/Vol] 2.8 mg/dL Normal 2.4-4.9 [facility] Comment on above: Performed By: #### U LUDMILA #### [facility] ([facility]) [address] [place] [address] VIR Phosphoruson 09-27-2024 Phosphate [Mass/Vol] 2.8 mg/dL 2.4 - 4 .9 mg/dL [facility] XR CHEST 1 VWon 09-27-2024 XR CHEST 1 VW XR CHEST 1 VW Single view chest History:evaluate for PNA Difficulty breathing, shortness of breath Comparison: 09/23/2024 Findings: Single portable view of the chest. Stable cardiomediastinal silhouette. No focal opacity, effusion or pneumothorax. Impression: No significant interval change or definitive acute process. Finalized by Eliazar Sterling MD on 09/27/2024 6:34 AM Normal [facility] XR Chest Single viewon 09-27 SECTRAPACS [facility] Radiology Study observation (narrative) [facility] XR Chest Single viewOrdered By: Eliazar Sterling on 09-27-2024 [facility] Work Phone: Bacteria identified Aer cx N om (Bld)Ordered By: Sheng Calderon on 09-26-2024 Bacteria identified Aer cx Nom (Unsp spec) NO GROWTH [address] [facility] BASIC METABOLIC PANELon 05-0 Anion gap [Moles/Vol] 10 mmol/L Normal 5-15 [facility] Comment on above: Performed By: #### U LUDMILA #### [facility] ([facility]) [address] [place] [address] VIR Calcium [Mass/Vol] 8.6 mg/dL Normal 8.5-10.5 [facility] Comment on above: Performed By: #### U LUDMILA #### [facility] ([facility]) [address] [place] [address] VIR Chloride [Moles/Vol] 107 mmol/L Normal 98-109 [facility] Comment on above: Performed By: #### U LUDMILA #### [facility] ([facility]) [address] [place] [address] VIR CO2 [Moles/Vol] 24 mmol/L Normal 22-32 [facility] Comment on above: Performed By: #### U LUDMILA #### [facility] ([facility]) [address] [place] [address] VIR Creatinine [Mass/Vol] 0.80 mg/dL Normal 0.40-1.00 [facility] Comment on above: Result Comment: METH OD TRACEABLE TO IDMS STANDARD Performed By: #### U LUDMILA #### [facility] ([facility]) [address] [place] [address] VIR GFR/1.73 sq M.predicted among non-blacks MDRD (S/P/Bld) [Vol rate/Area] 86 mL/min/{1.73_m2} Normal >=60 [facility] Comment on above: Result Comment: Repo rted eGFR is based on the CKD-EPI 2020 equation that does not use a race coefficient. Performed By: #### U LUDMILA #### [facility] ([facility]) [address] [place] [address] VIR Glucose [Mass/Vol] 165 mg/dL High 65-99 [facility] Comment on above: Performed By: #### U LUDMILA #### [facility] ([facility]) [address] [place] [address] VIR Potassium [Moles/Vol] 4.0 mmol/L Normal 3.5-5.0 [facility] Comment on above: Performed By: #### U LUDMILA #### [facility] ([facility]) [address] [place] [address] VIR Sodium [Moles/Vol] 141 mmol/L Normal 134-146 [facility] Comment on above: Performed By: #### U LUDMILA #### [facility] ([facility]) [address] [place] [address] VIR Urea nitrogen [Mass/Vol] 24 mg/dL High 5-23 [facility] Comment on above: Performed By: #### U LUDMILA #### [facility] ([facility]) [address] [place] [address] VIR Basic Metabolic Panelon Anion gap [Moles/Vol] 10 mmol/L 5 - 15 mmol/L [facility] Calcium [Mass/Vol] 8.6 mg/dL 8.5 - 10. 5 mg/dL [facility] Chloride [Moles/Vol] 107 mmol/L 98 - 10 9 mmol/L [facility] CO2 [Moles/Vol] 24 mmol/L 22 - 32 mmol/L [facility] Creatinine [Mass/Vol] 0.8 mg/dL 0.40 - 1.00 mg/dL [facility] EGFR Non-Race Dependent 86 - PINF [facility] Glucose [Mass/Vol] 165 mg/dL High 65 - 99 mg/dL [facility] Interpretation and review of laboratory results Abnormal [facility] Potassium [Moles/Vol] 4 mmol/L 3.5 - 5.0 mmol/L [facility] Sodium [Moles/Vol] 141 mmol/L 134 - 146 mmol/L [facility] Urea nitrogen [Mass/Vol] 24 mg/dL High 5 - 23 mg/dL [facility] CBC WITH AUTO DIFFERENTIALon 09-25-2024 CELLAVISION DIFFERENTIAL TYPE CELLAVISION DIFFERENTIAL Normal [facility] Comment on above: Result Comment: This is an appended report. These results have been appended to a previously preliminary verified report. Performed By: #### C PK #### [facility] ([facility]) [address] [place] [address] VIR CELLAVISION LYMPHOCYTES ABSOLUTE COUNT (10*3/UL) BY MANUAL COUNT 0.7 10*3/uL Low 1.0-3.5 [facility] Comment on above: Result Comment: This is an appended report. These results have been appended to a previously preliminary verified report. Performed By: #### C PK #### [facility] ([facility]) [address] [place] [address] VIR CELLAVISION LYMPHOCYTES RELATIVE PERCENT BY MANUAL COUNT 3 % Normal [facility] Comment on above: Result Comment: This is an appended report. These results have been appended to a previously preliminary verified report. Performed By: #### C PK #### [facility] ([facility]) [address] [place] [address] VIR CELLAVISION MONOCYTES ABSOLUTE COUNT (10*3/UL) IN BLOOD BY MANUAL COUNT 2.5 10*3/uL High 0.0-0.9 [facility] Comment on above: Result Comment: This is an appended report. These results have been appended to a previously preliminary verified report. Performed By: #### C PK #### [facility] ([facility]) [address] [place] [address] VIR CELLAVISION MONOCYTES RELATIVE PERCENT BY MANUAL COUNT 11 % Normal [facility] Comment on above: Result Comment: This is an appended report. These results have been appended to a previously preliminary verified report. Performed By: #### C PK #### [facility] ([facility]) [address] [place] [address] VIR CELLAVISION MYELOCYTE RELATIVE PERCENT BY MANUAL COUNT 1 % Normal [facility] Comment on above: Result Comment: This is an appended report. These results have been appended to a previously preliminary verified report. Performed By: #### C PK #### [facility] ([facility]) [address] [place] [address] VIR CELLAVISION NEUTROPHILS ABSOLUTE COUNT BY MANUAL COUNT 20.4 10*3/uL High 1.5-6.6 [facility] Comment on above: Result Comment: This is an appended report. These results have been appended to a previously preliminary verified report. Performed By: #### C PK #### [facility] ([facility]) [address] [place] [address] VIR CELLAVISION NEUTROPHILS RELATIVE PERCENT BY MANUAL COUNT 86 % Normal [facility] Comment on above: Result Comment: This is an appended report. These results have been appended to a previously preliminary verified report. Performed By: #### C PK #### [facility] ([facility]) [address] [place] [address] VIR CELLAVISION RBC MORPHOLOGY Normal Normal [facility] Comment on above: Result Comment: This is an appended report. These results have been appended to a previously preliminary verified report. Performed By: #### C PK #### [facility] ([facility]) [address] [place] [address] VIR CELLAVISION VACUOLATED NEUTROPHILS 1+ Normal [facility] Comment on above: Result Comment: This is an appended report. These results have been appended to a previously preliminary verified report. Performed By: #### C PK #### [facility] ([facility]) [address] [place] [address] VIR Erythrocyte distribution width (RBC) [Ratio] 15.8 % High 11.5-15 [facility] Comment on above: Performed By: #### C PK #### [facility] ([facility]) [address] [place] [address] VIR Hematocrit (Bld) [Volume fraction] 34.4 % Low 35-47 [facility] Comment on above: Performed By: #### C PK #### [facility] ([facility]) [address] [place] [address] VIR Hemoglobin (Bld) [Mass/Vol] 11.1 g/dL Low 11.7-15.5 [facility] Comment on above: Performed By: #### C PK #### [facility] ([facility]) [address] [place] [address] VIR MCH (RBC) [Entitic mass] 26.7 pg Low 27-34 [facility] Comment on above: Performed By: #### C PK #### [facility] ([facility]) [address] [place] [address] VIR MCHC (RBC) [Mass/Vol] 32.3 g/dL Normal 32-36 [facility] Comment on above: Performed By: #### C PK #### [facility] ([facility]) [address] [place] [address] VIR MCV (RBC) [Entitic vol] 83 fL Normal 80-100 [facility] Comment on above: Performed By: #### C PK #### [facility] ([facility]) [address] [place] [address] VIR Platelet mean volume (Bld) [Entitic vol] 10.5 fL Normal 7-12 [facility] Comment on above: Performed By: #### C PK #### [facility] ([facility]) [address] [place] [address] VIR Platelets (Bld) [#/Vol] 120 10*3/uL Low 150-450 [facility] Comment on above: Performed By: #### C PK #### [facility] ([facility]) [address] [place] [address] VIR RBC COUNT 4.16 X10E12/L Normal 3.8-5.2 [facility] Comment on above: Performed By: #### C PK #### [facility] ([facility]) [address] [place] [address] VIR WBC (Bld) [#/Vol] 23.8 10*3/uL High 4-11 [facility] Comment on above: Performed By: #### C PK #### [facility] ([facility]) [address] [place] [address] VIR CBC auto differentialon 05-0 Differential cell count method Nom (Bld) CELLAVISION DIFFERENTIAL [facility] Erythrocyte distribution width (RBC) [Ratio] 15.8 % High 11.5 - 15 % [facility] Hematocrit (Bld) [Volume fraction] 34.4 % Low 35 - 47 % [facility] Hemoglobin (Bld) [Mass/Vol] 11.1 g/dL Low 11.7 - 15.5 g/dL [facility] Interpretation and review of laboratory results Abnormal [facility] Lymphocytes (Bld) [#/Vol] 0.7 10*3/uL Low 1.0 - 3.5 10*3/uL [facility] MCH (RBC) [Entitic mass] 26.7 pg Low 27 - 34 pg [facility] MCHC (RBC) [Mass/Vol] 32.3 g/dL 32 - 3 6 g/dL [facility] MCV (RBC) [Entitic vol] 83 fL 80 - 100 fL [facility] Monocytes (Bld) [#/Vol] 2.5 10*3/uL High 0.0 - 0.9 10*3/uL [facility] Monocytes/100 WBC (Bld) 11 % [facility] Myelocytes/100 WBC (Bld) 1 % [facility] Neutrophils (Bld) [#/Vol] 20.4 10*3/uL High 1.5 - 6.6 10*3/uL [facility] Neutrophils.vacuolated LM Ql (Bld) 1+ [facility] Neutrophils/100 WBC (Bld) 86 % [facility] Platelet mean volume (Bld) [Entitic vol] 10.5 fL 7 - 12 fL [facility] Platelets (Bld) [#/Vol] 120 10*3/uL Low [facility] RBC (Bld) [#/Vol] 4.16 10*6/uL [facility] RBC (Bld) [#/Vol] Normal [facility] Variant lymphocytes/100 WBC (Bld) 3 % [facility] WBC LM Ql (Sput) 23.8 High [facility] IONIZED CALCIUMon 09-25-2024 IONIZED CALCIUM - ICAN 4.8 mg/dL Normal 4.5-5.3 [facility] Comment on above: Performed By: #### C PK #### [facility] ([facility]) [address] [place] [address] VIR IONIZED MAGNESIUMon 09-26-19 Magnesium [Moles/Vol] 0.56 mmol/L Normal 0.45-0.74 [facility] Comment on above: Performed By: #### U LUDMILA #### [facility] ([facility]) [address] [place] [address] VIR Ionized calciumon 09-25-2024 Calcium.ionized ISE [Moles/Vol] 4.8 mg/dL 4.5 - 5.3 mg/dL [facility] Interpretation and review of laboratory results Normal [facility] Ionized magnesiumon 09-26-19 25 Interpretation and review of laboratory results Normal [facility] Magnesium Ionized ISE (Bld) [Moles/Vol] 0.56 mmol/L 0.45 - 0.74 mmol/L [facility] MAGNESIUMon 09-25-2024 Magnesium [Mass/Vol] 1.8 mg/dL Normal 1.8-2.6 [facility] Comment on above: Performed By: #### U LUDMILA #### [facility] ([facility]) [address] [place] [address] VIR Magnesiumon 09-25-2024 Interpretation and review of laboratory results Normal [facility] Magnesium [Mass/Vol] 1.8 mg/dL 1.8 - 2 .6 mg/dL [facility] No Panel Informationon 09-25 [facility] PHOSPHORUSon 09-25-2024 Phosphate [Mass/Vol] 2.3 mg/dL Low 2.4-4.9 [facility] Comment on above: Performed By: #### U LUDMILA #### [facility] ([facility]) [address] [place] [address] VIR Phosphoruson 09-25-2024 Interpretation and review of laboratory results Abnormal [facility] Phosphate [Mass/Vol] 2.3 mg/dL Low 2.4 - 4 .9 mg/dL [facility] Bacteria identified Aer cx N om (Bld)on 09-24-2024 Bacteria identified Aer cx Nom (Unsp spec) NO GROWTH 5 DAYS [facility] CBC WITH AUTO DIFFERENTIALon 09-24-2024 BASOPHILS ABSOLUTE COUNT (10*3/UL) BY AUTOMATED COUNT 0.0 10*3/uL Normal [facility] Comment on above: Result Comment: This is an appended report. These results have been appended to a previously preliminary verified report. Performed By: #### C PK #### [facility] ([facility]) [address] [place] [address] VIR BASOPHILS RELATIVE PERCENT BY AUTOMATED COUNT 0.1 % Normal [facility] Comment on above: Result Comment: This is an appended report. These results have been appended to a previously preliminary verified report. Performed By: #### C PK #### [facility] ([facility]) [address] [address] [place] [address] VIR CELLAVISION DIFFERENTIAL TYPE AUTOMATED DIFFERENTIAL Normal [facility] Comment on above: Result Comment: This is an appended report. These results have been appended to a previously preliminary verified report. Performed By: #### C PK #### [facility] ([facility]) [address] [place] [address] VIR Eosinophils (Bld) [#/Vol] 0.0 10*3/uL Normal [facility] Comment on above: Result Comment: This is an appended report. These results have been appended to a previously preliminary verified report. Performed By: #### C PK #### [facility] ([facility]) [address] [place] [address] VIR EOSINOPHILS RELATIVE PERCENT BY AUTOMATED COUNT 0.0 % Normal [facility] Comment on above: Result Comment: This is an appended report. These results have been appended to a previously preliminary verified report. Performed By: #### C PK #### [facility] ([facility]) [address] [place] [address] VIR Erythrocyte distribution width (RBC) [Ratio] 15.3 % High 11.5-15 [facility] Comment on above: Performed By: #### C PK #### [facility] ([facility]) [address] [place] [address] VIR Hematocrit (Bld) [Volume fraction] 34.8 % Low 35-47 [facility] Comment on above: Performed By: #### C PK #### [facility] ([facility]) [address] [place] [address] VIR Hemoglobin (Bld) [Mass/Vol] 11.2 g/dL Low 11.7-15.5 [facility] Comment on above: Performed By: #### C PK #### [facility] ([facility]) [address] [place] [address] VIR LYMPHOCYTES ABSOLUTE COUNT (10*3/UL) BY AUTOMATED COUNT 0.7 10*3/uL Normal [facility] Comment on above: Result Comment: This is an appended report. These results have been appended to a previously preliminary verified report. Performed By: #### C PK #### [facility] ([facility]) [address] [place] [address] VIR LYMPHOCYTES RELATIVE PERCENT BY AUTOMATED COUNT 2.8 % Normal [facility] Comment on above: Result Comment: This is an appended report. These results have been appended to a previously preliminary verified report. Performed By: #### C PK #### [facility] ([facility]) [address] [place] [address] VIR MCH (RBC) [Entitic mass] 26.5 pg Low 27-34 [facility] Comment on above: Performed By: #### C PK #### [facility] ([facility]) [address] [place] [address] VIR MCHC (RBC) [Mass/Vol] 32.1 g/dL Normal 32-36 [facility] Comment on above: Performed By: #### C PK #### [facility] ([facility]) [address] [place] [address] VIR MCV (RBC) [Entitic vol] 82 fL Normal 80-100 [facility] Comment on above: Performed By: #### C PK #### [facility] ([facility]) [address] [place] [address] VIR MONOCYTES ABSOLUTE COUNT (10*3/UL) BY AUTOMATED COUNT 2.8 10*3/uL Normal [facility] Comment on above: Result Comment: This is an appended report. These results have been appended to a previously preliminary verified report. Performed By: #### C PK #### [facility] ([facility]) [address] [place] [address] VIR MONOCYTES RELATIVE PERCENT BY AUTOMATED COUNT 10.4 % Normal [facility] Comment on above: Result Comment: This is an appended report. These results have been appended to a previously preliminary verified report. Performed By: #### C PK #### [facility] ([facility]) [address] [place] [address] VIR NEUTROPHILS ABSOLUTE COUNT BY AUTOMATED COUNT 22.9 10*3/uL Normal [facility] Comment on above: Result Comment: This is an appended report. These results have been appended to a previously preliminary verified report. Performed By: #### C PK #### [facility] ([facility]) [address] [place] [address] VIR NEUTROPHILS RELATIVE PERCENT BY AUTOMATED COUNT 86.7 % Normal [facility] Comment on above: Result Comment: This is an appended report. These results have been appended to a previously preliminary verified report. Performed By: #### C PK #### [facility] ([facility]) [address] [place] [address] VIR Platelet mean volume (Bld) [Entitic vol] 9.5 fL Normal 7-12 [facility] Comment on above: Performed By: #### C PK #### [facility] ([facility]) [address] [place] [address] VIR Platelets (Bld) [#/Vol] 155 10*3/uL Normal 150-450 [facility] Comment on above: Performed By: #### C PK #### [facility] ([facility]) [address] [place] [address] VIR RBC COUNT 4.22 [id number] Normal 3.8-5.2 [facility] Comment on above: Performed By: #### C PK #### [facility] ([facility]) [address] [place] [address] VIR WBC (Bld) [#/Vol] 26.5 10*3/uL High 4-11 [facility] Comment on above: Performed By: #### C PK #### [facility] ([facility]) [address] [place] [address] VIR CBC auto differentialon 05-0 Basophils (Bld) [#/Vol] 0 10*3/uL [facility] Basophils/100 WBC (Bld) 0.1 % [facility] Differential cell count method Nom (Bld) AUTOMATED DIFFERENTIAL [facility] Eosinophils (Bld) [#/Vol] 0 10*3/uL [facility] Eosinophils/100 WBC (Bld) 0 % [facility] Erythrocyte distribution width (RBC) [Ratio] 15.3 % High 11.5 - 15 % [facility] Hematocrit (Bld) [Volume fraction] 34.8 % Low 35 - 47 % [facility] Hemoglobin (Bld) [Mass/Vol] 11.2 g/dL Low 11.7 - 15.5 g/dL [facility] Interpretation and review of laboratory results Abnormal [facility] Lymphocytes (Bld) [#/Vol] 0.7 10*3/uL [facility] Lymphocytes/100 WBC (Bld) 2.8 % [facility] MCH (RBC) [Entitic mass] 26.5 pg Low 27 - 34 pg [facility] MCHC (RBC) [Mass/Vol] 32.1 g/dL 32 - 3 6 g/dL [facility] MCV (RBC) [Entitic vol] 82 fL 80 - 100 fL [facility] Monocytes (Bld) [#/Vol] 2.8 10*3/uL [facility] Monocytes/100 WBC (Bld) 10.4 % [facility] Neutrophils (Bld) [#/Vol] 22.9 10*3/uL [facility] Neutrophils/100 WBC (Bld) 86.7 % [facility] Platelet mean volume (Bld) [Entitic vol] 9.5 fL 7 - 12 fL [facility] Platelets (Bld) [#/Vol] 155 10*3/uL [facility] RBC (Bld) [#/Vol] 4.22 10*6/uL [facility] WBC LM Ql (Sput) 26.5 High [facility] COMPREHENSIVE METABOLIC PANE Antoni 09-24-2024 Albumin [Mass/Vol] 3.3 g/dL Normal 3.2-5.3 [facility] Comment on above: Performed By: #### C PK #### [facility] ([facility]) [address] [place] [address] VIR ALP [Catalytic activity/Vol] 61 U/L Normal 39-130 [facility] Comment on above: Performed By: #### C PK #### [facility] ([facility]) [address] [place] [address] VIR ALT [Catalytic activity/Vol] 33 U/L High <=31 [facility] Comment on above: Performed By: #### C PK #### [facility] ([facility]) [address] [place] [address] VIR Anion gap [Moles/Vol] 10 mmol/L Normal 5-15 [facility] Comment on above: Performed By: #### C PK #### [facility] ([facility]) [address] [place] [address] VIR AST [Catalytic activity/Vol] 19 U/L Normal <=41 [facility] Comment on above: Performed By: #### C PK #### [facility] ([facility]) [address] [place] [address] VIR Bilirubin [Mass/Vol] 0.4 mg/dL Normal 0.3-1.2 [facility] Comment on above: Performed By: #### C PK #### [facility] ([facility]) [address] [place] [address] VIR Calcium [Mass/Vol] 8.7 mg/dL Normal 8.5-10.5 [facility] Comment on above: Performed By: #### C PK #### [facility] ([facility]) [address] [place] [address] VIR Chloride [Moles/Vol] 108 mmol/L Normal 98-109 [facility] Comment on above: Performed By: #### C PK #### [facility] ([facility]) [address] [place] [address] VIR CO2 [Moles/Vol] 23 mmol/L Normal 22-32 [facility] Comment on above: Performed By: #### C PK #### [facility] ([facility]) [address] [place] [address] VIR Creatinine [Mass/Vol] 1.06 mg/dL High 0.40-1.00 [facility] Comment on above: Result Comment: METH OD TRACEABLE TO IDMS STANDARD Performed By: #### C PK #### [facility] ([facility]) [address] [place] [address] VIR GFR/1.73 sq M.predicted among non-blacks MDRD (S/P/Bld) [Vol rate/Area] 62 mL/min/{1.73_m2} Normal >=60 [facility] Comment on above: Result Comment: Repo rted eGFR is based on the CKD-EPI 2020 equation that does not use a race coefficient. Performed By: #### C PK #### [facility] ([facility]) [address] [place] [address] VIR Glucose [Mass/Vol] 120 mg/dL High 65-99 [facility] Comment on above: Performed By: #### C PK #### [facility] ([facility]) [address] [place] [address] VIR Potassium [Moles/Vol] 4.3 mmol/L Normal 3.5-5.0 [facility] Comment on above: Performed By: #### C PK #### [facility] ([facility]) [address] [place] [address] VIR Protein [Mass/Vol] 6.3 g/dL Normal 6.0-8.0 [facility] Comment on above: Performed By: #### C PK #### [facility] ([facility]) [address] [place] [address] VIR Sodium [Moles/Vol] 141 mmol/L Normal 134-146 [facility] Comment on above: Performed By: #### C PK #### [facility] ([facility]) [address] [place] [address] VIR Urea nitrogen [Mass/Vol] 27 mg/dL High 5-23 [facility] Comment on above: Performed By: #### C PK #### [facility] ([facility]) [address] [place] [address] VIR CREATININE, SERUMon 09-25-19 25 CREATININE, SERUM BACK FACER CREATININE, SERU M Cancelled Normal [facility] Comment on above: Order Comment: Spoke to Regina Taylor RN. BMP since resulted making duplicate order, add-on is not necessary. Comprehensive metabolic pane lOrdered By: Paxton Navarro on 09-24-2024 Albumin [Mass/Vol] 3.3 g/dL 3.2 - 5.3 g/dL [facility] ALP [Catalytic activity/Vol] 61 U/L 39 - 130 U/L [facility] ALT No additional P-5'-P [Catalytic activity/Vol] 33 U/L High NINF - 31 U/L [facility] Anion gap [Moles/Vol] 10 mmol/L 5 - 15 mmol/L [facility] AST [Catalytic activity/Vol] 19 U/L NINF - 41 U/L [facility] Bilirubin [Mass/Vol] 0.4 mg/dL 0.3 - 1 .2 mg/dL [facility] Calcium [Mass/Vol] 8.7 mg/dL 8.5 - 10. 5 mg/dL [facility] Chloride [Moles/Vol] 108 mmol/L 98 - 10 9 mmol/L [facility] CO2 [Moles/Vol] 23 mmol/L 22 - 32 mmol/L [facility] Creatinine [Mass/Vol] 1.06 mg/dL High 0.40 - 1.00 mg/dL [facility] EGFR Non-Race Dependent 62 - PINF [facility] Glucose [Mass/Vol] 120 mg/dL High 65 - 99 mg/dL [facility] Interpretation and review of laboratory results Abnormal [facility] Potassium [Moles/Vol] 4.3 mmol/L 3.5 - 5.0 mmol/L [facility] Protein [Mass/Vol] 6.3 g/dL 6.0 - 8.0 g/dL [facility] Sodium [Moles/Vol] 141 mmol/L 134 - 146 mmol/L [facility] Urea nitrogen [Mass/Vol] 27 mg/dL High 5 - 23 mg/dL [facility] FL SWALLOW MOTILITY FUNCTION on 09-24-2024 FL [...] Christian MD on 09/24/2024 1:36 PM Normal [facility] IONIZED CALCIUMon 09-24-2024 IONIZED CALCIUM - ICAN 4.9 mg/dL Normal 4.5-5.3 [facility] Comment on above: Performed By: #### C PK #### [facility] ([facility]) [address] [place] [address] VIR Ionized calciumon 09-24-2024 Calcium.ionized ISE [Moles/Vol] 4.9 mg/dL 4.5 - 5.3 mg/dL [facility] Interpretation and review of laboratory results Normal [facility] MAGNESIUMon 09-24-2024 Magnesium [Mass/Vol] 2.3 mg/dL Normal 1.8-2.6 [facility] Comment on above: Performed By: #### C PK #### [facility] ([facility]) [address] [place] [address] VIR Magnesiumon 09-24-2024 Magnesium [Mass/Vol] 2.3 mg/dL 1.8 - 2 .6 mg/dL [facility] No Panel Informationon 09-24 Interpretation and review of laboratory results Normal [facility] PHOSPHORUSon 09-24-2024 Phosphate [Mass/Vol] 3.5 mg/dL Normal 2.4-4.9 [facility] Comment on above: Performed By: #### C PK #### [facility] ([facility]) [address] [place] [address] VIR Phosphoruson 09-24-2024 Phosphate [Mass/Vol] 3.5 mg/dL 2.4 - 4 .9 mg/dL [facility] RF videography Hypopharynx a nd Esophagus Viewson 09-24-2024 SECTRAPACS [facility] Radiology Study observation (narrative) [facility] RF videography Hypopharynx a nd Esophagus ViewsOrdered By: Remy Christian on 09-24-2024 [facility] Work Phone: ABO Rh Repeaton 09-23-2024 ABO O [facility] Rh Nom (Bld) Positive [facility] ABO O [facility] Rh Nom (Bld) Positive [facility] BASIC METABOLIC PANELon Anion gap [Moles/Vol] 8 mmol/L Normal 5-15 [facility] Comment on above: Performed By: #### T [email or web address] #### [facility] ([facility]) [address] [place] [address] VIR Calcium [Mass/Vol] 9.0 mg/dL Normal 8.5-10.5 [facility] Comment on above: Performed By: #### T [email or web address] #### [facility] ([facility]) [address] [place] [address] VIR Chloride [Moles/Vol] 111 mmol/L High 98-109 [facility] Comment on above: Performed By: #### T [email or web address] #### [facility] ([facility]) [address] [place] [address] VIR CO2 [Moles/Vol] 24 mmol/L Normal 22-32 [facility] Comment on above: Performed By: #### T [email or web address] #### [facility] ([facility]) [address] [place] [address] VIR Creatinine [Mass/Vol] 0.91 mg/dL Normal 0.40-1.00 [facility] Comment on above: Result Comment: METH OD TRACEABLE TO IDMS STANDARD Performed By: #### T [email or web address] #### [facility] ([facility]) [address] [place] [address] VIR GFR/1.73 sq M.predicted among non-blacks MDRD (S/P/Bld) [Vol rate/Area] 74 mL/min/{1.73_m2} Normal >=60 [facility] Comment on above: Result Comment: Repo rted eGFR is based on the CKD-EPI 2020 equation that does not use a race coefficient. Performed By: #### T [email or web address] #### [facility] ([facility]) [address] [place] [address] VIR Glucose [Mass/Vol] 106 mg/dL High 65-99 [facility] Comment on above: Performed By: #### T [email or web address] #### [facility] ([facility]) [address] [place] [address] VIR Potassium [Moles/Vol] 4.4 mmol/L Normal 3.5-5.0 [facility] Comment on above: Performed By: #### T [email or web address] #### [facility] ([facility]) [address] [place] [address] VIR Sodium [Moles/Vol] 143 mmol/L Normal 134-146 [facility] Comment on above: Performed By: #### T [email or web address] #### [facility] ([facility]) [address] [place] [address] VIR Urea nitrogen [Mass/Vol] 25 mg/dL High 5-23 [facility] Comment on above: Performed By: #### T [email or web address] #### [facility] ([facility]) [address] [place] [address] VIR BEDSIDE GLUCOSEon 09-23-2024 Glucose [Mass/Vol] 153 mg/dL High 65-99 [facility] Comment on above: Performed By: #### T [email or web address] #### [facility] ([facility]) [address] [place] [address] VIR Basic Metabolic PanelOrdered By: Prema Beach on 09-23-2024 Anion gap [Moles/Vol] 8 mmol/L 5 - 15 mmol/L [facility] Calcium [Mass/Vol] 9 mg/dL 8.5 - 10. 5 mg/dL [facility] Chloride [Moles/Vol] 111 mmol/L High 98 - 10 9 mmol/L [facility] CO2 [Moles/Vol] 24 mmol/L 22 - 32 mmol/L [facility] Creatinine [Mass/Vol] 0.91 mg/dL 0.40 - 1.00 mg/dL [facility] EGFR Non-Race Dependent 74 - PINF [facility] Glucose [Mass/Vol] 106 mg/dL High 65 - 99 mg/dL [facility] Interpretation and review of laboratory results Abnormal [facility] Potassium [Moles/Vol] 4.4 mmol/L 3.5 - 5.0 mmol/L [facility] Sodium [Moles/Vol] 143 mmol/L 134 - 146 mmol/L [facility] Urea nitrogen [Mass/Vol] 25 mg/dL High 5 - 23 mg/dL [facility] Bedside Glucose *Place/Obtai n serum glucose if >500 per glucometer.on 09-23-2024 Glucose [Mass/Vol] 153 mg/dL High 65 - 99 mg/dL [facility] Interpretation and review of laboratory results Abnormal [facility] CBC WITH AUTO DIFFERENTIALon 09-23-2024 BASOPHILS ABSOLUTE COUNT (10*3/UL) BY AUTOMATED COUNT 0.1 10*3/uL Normal [facility] Comment on above: Performed By: #### T [email or web address] #### [facility] ([facility]) [address] [place] [address] VIR BASOPHILS RELATIVE PERCENT BY AUTOMATED COUNT 0.4 % Normal [facility] Comment on above: Performed By: #### T [email or web address] #### [facility] ([facility]) [address] [place] [address] VIR CELLAVISION DIFFERENTIAL TYPE AUTOMATED DIFFERENTIAL Normal [facility] Comment on above: Performed By: #### T [email or web address] #### [facility] ([facility]) [address] [place] [address] VIR Eosinophils (Bld) [#/Vol] 0.0 10*3/uL Normal [facility] Comment on above: Performed By: #### T [email or web address] #### [facility] ([facility]) [address] [place] [address] VIR EOSINOPHILS RELATIVE PERCENT BY AUTOMATED COUNT 0.1 % Normal [facility] Comment on above: Performed By: #### T [email or web address] #### [facility] ([facility]) [address] [place] [address] VIR Erythrocyte distribution width (RBC) [Ratio] 15.5 % High 11.5-15 [facility] Comment on above: Performed By: #### T [email or web address] #### [facility] ([facility]) [address] [place] [address] VIR Hematocrit (Bld) [Volume fraction] 37.3 % Normal 35-47 [facility] Comment on above: Performed By: #### T [email or web address] #### [facility] ([facility]) [address] [place] [address] VIR Hemoglobin (Bld) [Mass/Vol] 12.3 g/dL Normal 11.7-15.5 [facility] Comment on above: Performed By: #### T [email or web address] #### [facility] ([facility]) [address] [place] [address] VIR LYMPHOCYTES ABSOLUTE COUNT (10*3/UL) BY AUTOMATED COUNT 1.1 10*3/uL Normal [facility] Comment on above: Performed By: #### T [email or web address] #### [facility] ([facility]) [address] [place] [address] VIR LYMPHOCYTES RELATIVE PERCENT BY AUTOMATED COUNT 7.0 % Normal [facility] Comment on above: Performed By: #### T [email or web address] #### [facility] ([facility]) [address] [place] [address] VIR MCH (RBC) [Entitic mass] 26.9 pg Low 27-34 [facility] Comment on above: Performed By: #### T [email or web address] #### [facility] ([facility]) [address] [facility] [place] [address] VIR MCHC (RBC) [Mass/Vol] 32.9 g/dL Normal 32-36 [facility] Comment on above: Performed By: #### T [email or web address] #### [facility] ([facility]) [address] [place] [address] VIR MCV (RBC) [Entitic vol] 82 fL Normal 80-100 [facility] Comment on above: Performed By: #### T [email or web address] #### [facility] ([facility]) [address] [facility] [place] [address] VIR MONOCYTES ABSOLUTE COUNT (10*3/UL) BY AUTOMATED COUNT 1.0 10*3/uL Normal [facility] Comment on above: Performed By: #### T [email or web address] #### [facility] ([facility]) [address] [facility] [place] [address] VIR MONOCYTES RELATIVE PERCENT BY AUTOMATED COUNT 6.9 % Normal [facility] Comment on above: Performed By: #### T [email or web address] #### [facility] ([facility]) [address] [facility] [place] [address] VIR NEUTROPHILS ABSOLUTE COUNT BY AUTOMATED COUNT 12.9 10*3/uL Normal [facility] Comment on above: Performed By: #### T [email or web address] #### [facility] ([facility]) [address] [facility] [place] [address] VIR NEUTROPHILS RELATIVE PERCENT BY AUTOMATED COUNT 85.6 % Normal [facility] Comment on above: Performed By: #### T [email or web address] #### [facility] ([facility]) [address] [facility] [place] [address] VIR Platelet mean volume (Bld) [Entitic vol] 9.5 fL Normal 7-12 [facility] Comment on above: Performed By: #### T [email or web address] #### [facility] LABORATORY ([facility]) [address] [place] [address] VIR Platelets (Bld) [#/Vol] 167 10*3/uL Normal 150-450 [facility] Comment on above: Performed By: #### T [email or web address] #### [facility] ([facility]) [address] [place] [address] VIR RBC COUNT 4.57 X10E12/L Normal 3.8-5.2 [facility] Comment on above: Performed By: #### T [email or web address] #### [facility] ([facility]) [address] [place] [address] VIR WBC (Bld) [#/Vol] 15.1 10*3/uL High 4-11 [facility] Comment on above: Performed By: #### T [email or web address] #### [facility] ([facility]) [address] [place] [address] VIR CBC auto differentialon 05-0 Basophils (Bld) [#/Vol] 0.1 10*3/uL [facility] Basophils/100 WBC (Bld) 0.4 % [facility] Differential cell count method Nom (Bld) AUTOMATED DIFFERENTIAL [facility] Eosinophils (Bld) [#/Vol] 0 10*3/uL [facility] Eosinophils/100 WBC (Bld) 0.1 % [facility] Erythrocyte distribution width (RBC) [Ratio] 15.5 % High 11.5 - 15 % [facility] Hematocrit (Bld) [Volume fraction] 37.3 % 35 - 47 % [facility] Hemoglobin (Bld) [Mass/Vol] 12.3 g/dL 11.7 - 15.5 g/dL [facility] Interpretation and review of laboratory results Abnormal [facility] Lymphocytes (Bld) [#/Vol] 1.1 10*3/uL [facility] Lymphocytes/100 WBC (Bld) 7 % [facility] MCH (RBC) [Entitic mass] 26.9 pg Low 27 - 34 pg [facility] MCHC (RBC) [Mass/Vol] 32.9 g/dL 32 - 3 6 g/dL [facility] MCV (RBC) [Entitic vol] 82 fL 80 - 100 fL [facility] Monocytes (Bld) [#/Vol] 1 10*3/uL [facility] Monocytes/100 WBC (Bld) 6.9 % [facility] Neutrophils (Bld) [#/Vol] 12.9 10*3/uL [facility] Neutrophils/100 WBC (Bld) 85.6 % [facility] Platelet mean volume (Bld) [Entitic vol] 9.5 fL 7 - 12 fL [facility] Platelets (Bld) [#/Vol] 167 10*3/uL [facility] RBC (Bld) [#/Vol] 4.57 10*6/uL [facility] WBC LM Ql (Sput) 15.1 High [facility] CT BRAIN WO CONTon 5 CT [...] Hebert Farrar on 09/23/2024 7:38 PM Normal [facility] CT Head [facility] (narrative) [facility] CT Head WO contrastOrdered B y: Hebert Farrar on 09-23-2024 [facility] Work Phone: Clinical Pathology ReviewOrd ered By: Jeremiah Altman on 09-23-2024 Case Report [facility] Work Phone: Pathology report final diagnosis Narrative [id number] DrwxwYyNQIdeHQvL3Jtdi spLObxEZ8oNY7hvBrvoLW pcIEaJPTbJyHml7soe566 sFHuw5wsJXFMGCbuBOPPF Dy7pAvdC59cq1V5OzksY6 1fdCPjEHU2XJXoNIXmcKU gNDGzTWI1JXCadGVjF0xp EOGoCO2hamfaTRsnCFuqR LEmhYJ1AUHfgYTiL2BfWW ReUUlxOYNqckf6LjRbXx5 vdGVyeTcyMFxwYXJkXHBs YWluXGZzMjAgUHJvbWluZ Q12REZltaDdsE7fWfR6PN ApYQzcc20vHLOrH05euXR wVPAetK49fv5ohAtnhPij hmAjf7DhJxBbkXcoxrQcq aFwmGG0rM2dMhkrKWNmUB uwc0GgDwRqoU5knAtiZBp owJqmmQ0oykCdy7ZbzO0k CGP4lGKohPelj8PsqsJsE 6ExmpXbFaabZVV9 [facility] Work Phone: [facility] Work Phone: ECG 12 leadon 09-23-2024 TRACEMASTERVUE [facility] IONIZED CALCIUMon 09-23-2024 IONIZED CALCIUM - ICAN 4.8 mg/dL Normal 4.5-5.3 [facility] Comment on above: Performed By: #### T [email or web address] #### [facility] ([facility]) [address] [place] [address] VIR Ionized calciumon 09-23-2024 Calcium.ionized ISE [Moles/Vol] 4.8 mg/dL 4.5 - 5.3 mg/dL [facility] Interpretation and review of laboratory results Normal [facility] MAGNESIUMon 09-23-2024 Magnesium [Mass/Vol] 1.8 mg/dL Normal 1.8-2.6 [facility] Comment on above: Performed By: #### T NIHS1 #### [facility] ([facility]) [address] [place] [address] VIR Magnesiumon 09-23-2024 Magnesium [Mass/Vol] 1.8 mg/dL 1.8 - 2 .6 mg/dL [facility] No Panel Informationon 09-23 Interpretation and review of laboratory results Normal [facility] PHOSPHORUSon 09-23-2024 Phosphate [Mass/Vol] 3.0 mg/dL Normal 2.4-4.9 [facility] Comment on above: Result Comment: R-Sp ecimen slightly hemolyzed, results increased Performed By: #### T NIHS1 #### [facility] ([facility]) [address] [place] [address] VIR Phosphoruson 09-23-2024 Phosphate [Mass/Vol] 3 mg/dL 2.4 - 4 .9 mg/dL [facility] Protein electrophoresis, ser umon 09-23-2024 Albumin [Mass/Vol] 2.8 g/dL Low 3.4 - 5.3 g/dL [facility] Alpha 1 globulin Elph [Mass/Vol] 0.6 g/dL High 0.1 - 0.4 g/dL [facility] Alpha 2 globulin Elph [Mass/Vol] 1.2 g/dL High 0.4 - 1.1 g/dL [facility] Beta globulin Elph [Mass/Vol] 1 g/dL 0.5 - 1.2 g/dL [facility] Gamma globulin Elph (Body fld) [Mass/Vol] 0.9 g/dL 0.5 - 1.6 g/dL [facility] Interpretation and review of laboratory results Abnormal [facility] Pathologist interpretation (Bld) [Interp] See Pathology Report [facility] Protein [Mass/Vol] 6.4 g/dL 6.0 - 8.0 g/dL [facility] REPEATED ABORHon 09-23-2024 ABO_INTEP O Normal [facility] Comment on above: Performed By: #### T NIHS1 #### [facility] ([facility]) [address] [place] [address] VIR RH_INTEP Positive Normal [facility] Comment on above: Performed By: #### T [email or web address] #### [facility] ([facility]) [address] [place] [address] VIR X-ray abdomen NG Tube placem ent 1 viewon 09-23-2024 [facility] Radiology Study observation (narrative) [facility] X-ray abdomen NG Tube placem ent 1 viewOrdered By: Sebastian Grayson on 09-23-2024 [facility] Work Phone: XR ABD NG TUBE PLACEMENT [...] Grayson MD on 09/23/2024 5:22 PM Normal [facility] XR Chest [facility] 09-[facility] XR Chest Single viewOrdered By: Shen Farooq on 09-23-2024 [facility] Work Phone: BASIC METABOLIC PANELon 05-0 Anion gap [Moles/Vol] 11 mmol/L Normal 5-15 [facility] Comment on above: Performed By: #### C MP #### [facility] ([facility]) [address] [place] [address] VIR Calcium [Mass/Vol] 9.0 mg/dL Normal 8.5-10.5 [facility] Comment on above: Performed By: #### C MP #### [facility] ([facility]) [address] [place] [address] VIR Chloride [Moles/Vol] 110 mmol/L High 98-109 [facility] Comment on above: Performed By: #### C MP #### [facility] ([facility]) [address] [place] [address] VIR CO2 [Moles/Vol] 23 mmol/L Normal 22-32 [facility] Comment on above: Performed By: #### C MP #### [facility] ([facility]) [address] [place] [address] VIR Creatinine [Mass/Vol] 1.01 mg/dL High 0.40-1.00 [facility] Comment on above: Result Comment: METH OD TRACEABLE TO IDMS STANDARD Performed By: #### C MP #### [facility] ([facility]) [address] [place] [address] VIR GFR/1.73 sq M.predicted among non-blacks MDRD (S/P/Bld) [Vol rate/Area] 65 mL/min/{1.73_m2} Normal >=60 [facility] Comment on above: Result Comment: Repo rted eGFR is based on the CKD-EPI 2020 equation that does not use a race coefficient. Performed By: #### C MP #### [facility] ([facility]) [address] [place] [address] VIR Glucose [Mass/Vol] 129 mg/dL High 65-99 [facility] Comment on above: Performed By: #### C MP #### [facility] ([facility]) [address] [place] [address] VIR Potassium [Moles/Vol] 4.4 mmol/L Normal 3.5-5.0 [facility] Comment on above: Performed By: #### C MP #### [facility] ([facility]) [address] [place] [address] VIR Sodium [Moles/Vol] 144 mmol/L Normal 134-146 [facility] Comment on above: Performed By: #### C MP #### [facility] ([facility]) [address] [place] [address] VIR Urea nitrogen [Mass/Vol] 24 mg/dL High 5-23 [facility] Comment on above: Performed By: #### C MP #### [facility] ([facility]) [address] [place] [address] VIR Basic Metabolic PanelOrdered By: Rosenda Hernández on 09-22-2024 Anion gap [Moles/Vol] 11 mmol/L 5 - 15 mmol/L [facility] Calcium [Mass/Vol] 9 mg/dL 8.5 - 10. 5 mg/dL [facility] Chloride [Moles/Vol] 110 mmol/L High 98 - 10 9 mmol/L [facility] CO2 [Moles/Vol] 23 mmol/L 22 - 32 mmol/L [facility] Creatinine [Mass/Vol] 1.01 mg/dL High 0.40 - 1.00 mg/dL [facility] EGFR Non-Race Dependent 65 - PINF [facility] Glucose [Mass/Vol] 129 mg/dL High 65 - 99 mg/dL [facility] Interpretation and review of laboratory results Abnormal [facility] Potassium [Moles/Vol] 4.4 mmol/L 3.5 - 5.0 mmol/L [facility] Sodium [Moles/Vol] 144 mmol/L 134 - 146 mmol/L [facility] Urea nitrogen [Mass/Vol] 24 mg/dL High 5 - 23 mg/dL [facility] CBC WITH AUTO DIFFERENTIALon 09-22-2024 BASOPHILS ABSOLUTE COUNT (10*3/UL) BY AUTOMATED COUNT 0.0 10*3/uL Normal [facility] Comment on above: Performed By: #### C MP #### [facility] ([facility]) [address] [place] [address] VIR BASOPHILS RELATIVE PERCENT BY AUTOMATED COUNT 0.3 % Normal [facility] Comment on above: Performed By: #### C MP #### [facility] ([facility]) [address] [place] [address] VIR CELLAVISION DIFFERENTIAL TYPE AUTOMATED DIFFERENTIAL Normal [facility] Comment on above: Performed By: #### C MP #### [facility] ([facility]) [address] [place] [address] VIR Eosinophils (Bld) [#/Vol] 0.0 10*3/uL Normal [facility] Comment on above: Performed By: #### C MP #### [facility] ([facility]) [address] [place] [address] VIR EOSINOPHILS RELATIVE PERCENT BY AUTOMATED COUNT 0.0 % Normal [facility] Comment on above: Performed By: #### C MP #### [facility] ([facility]) [address] [place] [address] VIR Erythrocyte distribution width (RBC) [Ratio] 15.5 % High 11.5-15 [facility] Comment on above: Performed By: #### C MP #### [facility] ([facility]) [address] [place] [address] VIR Hematocrit (Bld) [Volume fraction] 38.0 % Normal 35-47 [facility] Comment on above: Performed By: #### C MP #### [facility] ([facility]) [address] [place] [address] VIR Hemoglobin (Bld) [Mass/Vol] 12.3 g/dL Normal 11.7-15.5 [facility] Comment on above: Performed By: #### C MP #### [facility] ([facility]) [address] [place] [address] VIR LYMPHOCYTES ABSOLUTE COUNT (10*3/UL) BY AUTOMATED COUNT 0.9 10*3/uL Normal [facility] Comment on above: Performed By: #### C MP #### [facility] ([facility]) [address] [place] [address] VIR LYMPHOCYTES RELATIVE PERCENT BY AUTOMATED COUNT 6.4 % Normal [facility] Comment on above: Performed By: #### C MP #### [facility] ([facility]) [address] [place] [address] VIR MCH (RBC) [Entitic mass] 27.0 pg Normal 27-34 [facility] Comment on above: Performed By: #### C MP #### [facility] ([facility]) [address] [place] [address] VIR MCHC (RBC) [Mass/Vol] 32.5 g/dL Normal 32-36 [facility] Comment on above: Performed By: #### C MP #### [facility] ([facility]) [address] [place] [address] VIR MCV (RBC) [Entitic vol] 83 fL Normal 80-100 [facility] Comment on above: Performed By: #### C MP #### [facility] ([facility]) [address] [place] [address] VIR MONOCYTES ABSOLUTE COUNT (10*3/UL) BY AUTOMATED COUNT 0.8 10*3/uL Normal [facility] Comment on above: Performed By: #### C MP #### [facility] ([facility]) [address] [place] [address] VIR MONOCYTES RELATIVE PERCENT BY AUTOMATED COUNT 6.0 % Normal [facility] Comment on above: Performed By: #### C MP #### [facility] ([facility]) [address] [place] [address] VIR NEUTROPHILS ABSOLUTE COUNT BY AUTOMATED COUNT 11.9 10*3/uL Normal [facility] Comment on above: Performed By: #### C MP #### [facility] ([facility]) [address] [place] [address] VIR NEUTROPHILS RELATIVE PERCENT BY AUTOMATED COUNT 87.3 % Normal [facility] Comment on above: Performed By: #### C MP #### [facility] ([facility]) [address] [place] [address] VIR Platelet mean volume (Bld) [Entitic vol] 9.6 fL Normal 7-12 [facility] Comment on above: Performed By: #### C MP #### [facility] ([facility]) [address] [place] [address] VIR Platelets (Bld) [#/Vol] 167 10*3/uL Normal 150-450 [facility] Comment on above: Performed By: #### C MP #### [facility] ([facility]) [address] [place] [address] VIR RBC COUNT 4.57 X10E12/L Normal 3.8-5.2 [facility] Comment on above: Performed By: #### C MP #### [facility] ([facility]) [address] [place] [address] VIR WBC (Bld) [#/Vol] 13.7 10*3/uL High 4-11 [facility] Comment on above: Performed By: #### C MP #### [facility] ([facility]) [address] [place] [address] VIR CBC auto differentialon 05-0 Basophils (Bld) [#/Vol] 0 10*3/uL [facility] Basophils/100 WBC (Bld) 0.3 % [facility] Differential cell count method Nom (Bld) AUTOMATED DIFFERENTIAL [facility] Eosinophils (Bld) [#/Vol] 0 10*3/uL [facility] Eosinophils/100 WBC (Bld) 0 % [facility] Erythrocyte distribution width (RBC) [Ratio] 15.5 % High 11.5 - 15 % [facility] Hematocrit (Bld) [Volume fraction] 38 % 35 - 47 % [facility] Hemoglobin (Bld) [Mass/Vol] 12.3 g/dL 11.7 - 15.5 g/dL [facility] Interpretation and review of laboratory results Abnormal [facility] Lymphocytes (Bld) [#/Vol] 0.9 10*3/uL [facility] Lymphocytes/100 WBC (Bld) 6.4 % [facility] MCH (RBC) [Entitic mass] 27 pg 27 - 34 pg [facility] MCHC (RBC) [Mass/Vol] 32.5 g/dL 32 - 3 6 g/dL [facility] MCV (RBC) [Entitic vol] 83 fL 80 - 100 fL [facility] Monocytes (Bld) [#/Vol] 0.8 10*3/uL [facility] Monocytes/100 WBC (Bld) 6 % [facility] Neutrophils (Bld) [#/Vol] 11.9 10*3/uL [facility] Neutrophils/100 WBC (Bld) 87.3 % [facility] Platelet mean volume (Bld) [Entitic vol] 9.6 fL 7 - 12 fL [facility] Platelets (Bld) [#/Vol] 167 10*3/uL [facility] RBC (Bld) [#/Vol] 4.57 10*6/uL [facility] WBC LM Ql (Sput) 13.7 High [facility] Cardiac echo study Procedure Ordered By: Nava Gamez on 09-22-2024 Aortic root 3 cm [facility] Work Phone: Aortic valve Mean systole pressure gradient by US.doppler derived full Bernoulli 4 mmHg [employer] Work Phone: Aortic valve Orifice area by US 3.39 [employer] Work Phone: Aortic valve Peak systolic flow by US.doppler 132 cm/s [employer] Work Phone: AV peak gradient 6.97 mmHg [employer] Work Phone: AV Velocity Ratio 0.98 [employer] Work Phone: AV VTI 28.3 cm [employer] Work Phone: E wave deceleration time 369 msec [employer] Work Phone: E/A ratio 0.5 [employer] Work Phone: Energy loss index 16.04 [employer] Work Phone: FS 46 % 28 - 44 % [employer] Work Phone: Interventricular Septum Diastolic Thickness by 2D 10 cm [employer] Work Phone: IVS 1 cm 0.6 - 1.1 cm [employer] Work Phone: LA size 3.2 cm [employer] Work Phone: LA volume 66.4 cm3 [employer] Work Phone: LA Volume Index 28.1 mL/m2 [employer] Work Phone: Left Ventricle Mass [id number] g [employer] Work Phone: LV ESV A2C 53.2 mL [employer] Work Phone: LV ESV A4C 78.5 mL [employer] Work Phone: LV RWT 2D 56.41 [employer] Work Phone: LVIDd 3.9 cm 7.16 - 9.95 cm [employer] Work Phone: LVIDs 2.1 cm 4.15 - 6.28 cm [employer] Work Phone: LVOT diameter 2.1 cm [employer] Work Phone: LVOT peak dayday 1.35 m/s [facility] [employer] Work Phone: LVOT peak VTI 27.7 cm [employer] Work Phone: LVOT stroke volume 95.94 ml [employer] Work Phone: Mitral Valve Max Velocity 2.24 cm/s [employer] Work Phone: MV mean gradient 10 mmHg [employer] Work Phone: MV Peak A Dayday 172 cm/s [employer] Work Phone: MV Peak E Dayday 86.8 cm/s [employer] Work Phone: MV peak gradient 20.07 mmHg [employer] Work Phone: MV pressure 1/2 time 108 ms [employer] Work Phone: MV TDI E' (medial) 3.92 cm/s [facility] Work Phone: MV valve area by continuity eq 1.35 [facility] [employer] Work Phone: MV valve area p 1/2 method 2.04 cm2 [employer] Work Phone: MV VTI 71 cm [employer] Work Phone: PV peak gradient 3.41 mmHg [employer] Work Phone: PW 1.1 cm 0.6 - 1.1 cm [employer] Work Phone: RV diastolic dimension (basal) 38 mm [employer] Work Phone: TAPSE 2.39 cm [employer] Work Phone: TDI 3.81 cm/s [employer] Work Phone: Valve area - Index 1.4 [employer] Work Phone: ZLVIDD -7.72 [facility] Work Phone: ZLVIDS -7.02 [employer] Work Phone: [facility] Work Phone: Cardiac echo study Procedure on 09-22-2024 [facility] Radiology Study observation (narrative) [facility] ELECTROLYTE PANELon 09-23-19 25 Anion gap [Moles/Vol] 11 mmol/L Normal 5-15 [facility] Comment on above: Performed By: #### C MP #### [facility] ([facility]) [address] [place] [address] VIR Chloride [Moles/Vol] 109 mmol/L Normal 98-109 [facility] Comment on above: Performed By: #### C MP #### [facility] ([facility]) [address] [place] [address] VIR CO2 [Moles/Vol] 22 mmol/L Normal 22-32 [facility] Comment on above: Performed By: #### C MP #### [facility] ([facility]) [address] [place] [address] VIR Potassium [Moles/Vol] 4.5 mmol/L Normal 3.5-5.0 [facility] Comment on above: Performed By: #### C MP #### [facility] ([facility]) [address] [place] [address] VIR Sodium [Moles/Vol] 142 mmol/L Normal 134-146 [facility] Comment on above: Performed By: #### C MP #### [facility] ([facility]) [address] [place] [address] VIR Anion gap [Moles/Vol] 10 mmol/L Normal 5-15 [facility] Comment on above: Performed By: #### C MP #### [facility] ([facility]) [address] [place] [address] VIR Chloride [Moles/Vol] 110 mmol/L High 98-109 [facility] Comment on above: Performed By: #### C MP #### [facility] ([facility]) [address] [place] [address] VIR CO2 [Moles/Vol] 23 mmol/L Normal 22-32 [facility] Comment on above: Performed By: #### C MP #### [facility] ([facility]) [address] [place] [address] VIR Potassium [Moles/Vol] 4.1 mmol/L Normal 3.5-5.0 [facility] Comment on above: Performed By: #### C MP #### [facility] ([facility]) [address] [place] [address] VIR Sodium [Moles/Vol] 143 mmol/L Normal 134-146 [facility] Comment on above: Performed By: #### C MP #### [facility] ([facility]) [address] [place] [address] VIR Electrolyte panelOrdered By: Leif Bazan on 09-22-2024 Anion gap [Moles/Vol] 11 mmol/L 5 - 15 mmol/L [facility] Chloride [Moles/Vol] 109 mmol/L 98 - 10 9 mmol/L [facility] CO2 [Moles/Vol] 22 mmol/L 22 - 32 mmol/L [facility] Interpretation and review of laboratory results Normal [facility] Potassium [Moles/Vol] 4.5 mmol/L 3.5 - 5.0 mmol/L [facility] Sodium [Moles/Vol] 142 mmol/L 134 - 146 mmol/L [facility] Electrolyte panelOrdered By: Mao Toro on 09-22-2024 Anion gap [Moles/Vol] 10 mmol/L 5 - 15 mmol/L [facility] Chloride [Moles/Vol] 110 mmol/L High 98 - 10 9 mmol/L [facility] CO2 [Moles/Vol] 23 mmol/L 22 - 32 mmol/L [facility] Interpretation and review of laboratory results Abnormal [facility] Potassium [Moles/Vol] 4.1 mmol/L 3.5 - 5.0 mmol/L [facility] Sodium [Moles/Vol] 143 mmol/L 134 - 146 mmol/L [facility] IONIZED CALCIUMon 09-22-2024 IONIZED CALCIUM - ICAN 4.6 mg/dL Normal 4.5-5.3 [facility] Comment on above: Performed By: #### C MP #### [facility] ([facility]) [address] [place] [address] VIR Ionized calciumOrdered By: Jose Vásquez on 09-22-2024 Calcium.ionized ISE [Moles/Vol] 4.6 mg/dL 4.5 - 5.3 mg/dL [facility] Interpretation and review of laboratory results Normal [facility] MAGNESIUMon 09-22-2024 Magnesium [Mass/Vol] 1.9 mg/dL Normal 1.8-2.6 [facility] Comment on above: Performed By: #### C MP #### [facility] ([facility]) [address] [place] [address] VIR Magnesiumon 09-22-2024 Magnesium [Mass/Vol] 1.9 mg/dL 1.8 - 2 .6 mg/dL [facility] No Panel Informationon 09-22 Interpretation and review of laboratory results Normal [facility] PHOSPHORUSon 09-22-2024 Phosphate [Mass/Vol] 3.3 mg/dL Normal 2.4-4.9 [facility] Comment on above: Performed By: #### C MP #### [facility] ([facility]) [address] [place] [address] VIR Phosphoruson 09-22-2024 Phosphate [Mass/Vol] 3.3 mg/dL 2.4 - 4 .9 mg/dL [facility] TYPE AND SCREENon 09-22-2024 ABO_INTEP O Normal [facility] Comment on above: Performed By: #### T [email or web address] #### [facility] ([facility]) [address] [place] [address] VIR RH_INTEP Positive Normal [facility] Comment on above: Performed By: #### T NIHS1 #### [facility] ([facility]) [address] [facility] [place] [address] VIR Type and screen(includes ind irect sinan)on 09-22-2024 ABO O [facility] Rh Nom (Bld) Positive [facility] VANCOMYCIN, RANDOMon 025 VANCOMYCIN 16.5 ug/mL Normal 5.0-40.0 [facility] Comment on above: Order Comment: Peak 30-40 ug/mLTrough 5-20 ug/ml Performed By: #### C MP #### [facility] ([facility]) [address] [place] [address] VIR Vancomycin, randomon 025 Vancomycin [Susc] 16.5 ug/mL 5.0 - 40.0 ug/mL [facility] MAGI Screen w/ Reflexon 09-21 Interpretation and review of laboratory results Normal [facility] Nuclear Ab IA Ql (S) Negative Negative [facility] BASIC METABOLIC PANELon Anion gap [Moles/Vol] 10 mmol/L Normal 5-15 [facility] Comment on above: Performed By: #### L ACTS #### [facility] ([facility]) [address] [place] [address] VIR Calcium [Mass/Vol] 9.2 mg/dL Normal 8.5-10.5 [facility] Comment on above: Performed By: #### L ACTS #### [facility] ([facility]) [address] [place] [address] VIR Chloride [Moles/Vol] 114 mmol/L High 98-109 [facility] Comment on above: Performed By: #### L ACTS #### [facility] ([facility]) [address] [place] [address] VIR CO2 [Moles/Vol] 24 mmol/L Normal 22-32 [facility] Comment on above: Performed By: #### L ACTS #### [facility] ([facility]) [address] [place] [address] VIR Creatinine [Mass/Vol] 1.27 mg/dL High 0.40-1.00 [facility] Comment on above: Result Comment: METH OD TRACEABLE TO IDMS STANDARD Performed By: #### L ACTS #### [facility] ([facility]) [address] [place] [address] VIR GFR/1.73 sq M.predicted among non-blacks MDRD (S/P/Bld) [Vol rate/Area] 50 mL/min/{1.73_m2} Low >=60 [facility] Comment on above: Result Comment: Repo rted eGFR is based on the CKD-EPI 2020 equation that does not use a race coefficient. Performed By: #### L ACTS #### [facility] ([facility]) [address] [place] [address] VIR Glucose [Mass/Vol] 127 mg/dL High 65-99 [facility] Comment on above: Performed By: #### L ACTS #### [facility] ([facility]) [address] [place] [address] VIR Potassium [Moles/Vol] 3.9 mmol/L Normal 3.5-5.0 [facility] Comment on above: Performed By: #### L ACTS #### [facility] ([facility]) [address] [place] [address] VIR Sodium [Moles/Vol] 148 mmol/L High 134-146 [facility] Comment on above: Performed By: #### L ACTS #### [facility] ([facility]) [address] [place] [address] VIR Urea nitrogen [Mass/Vol] 24 mg/dL High 5-23 [facility] Comment on above: Performed By: #### L ACTS #### [facility] ([facility]) [address] [place] [address] VIR Bacteria identified Aer cx N om (Bld)Ordered By: Maicol Mg on 09-21-2024 Bacteria identified Aer cx Nom (Unsp spec) Negative Abnormal [facility] Interpretation and review of laboratory results Abnormal [facility] Microscopic observation Gram stain Nom (Unsp spec) Positive Abnormal [facility] Basic Metabolic Panelon Anion gap [Moles/Vol] 10 mmol/L 5 - 15 mmol/L [facility] Calcium [Mass/Vol] 9.2 mg/dL 8.5 - 10. 5 mg/dL [facility] Chloride [Moles/Vol] 114 mmol/L High 98 - 10 9 mmol/L [facility] CO2 [Moles/Vol] 24 mmol/L 22 - 32 mmol/L [facility] Creatinine [Mass/Vol] 1.27 mg/dL High 0.40 - 1.00 mg/dL [facility] EGFR Non-Race Dependent 50 Low - PINF [facility] Glucose [Mass/Vol] 127 mg/dL High 65 - 99 mg/dL [facility] Interpretation and review of laboratory results Abnormal [facility] Potassium [Moles/Vol] 3.9 mmol/L 3.5 - 5.0 mmol/L [facility] Sodium [Moles/Vol] 148 mmol/L High 134 - 146 mmol/L [facility] Urea nitrogen [Mass/Vol] 24 mg/dL High 5 - 23 mg/dL [facility] CBC WITH AUTO DIFFERENTIALon 09-21-2024 BASOPHILS ABSOLUTE COUNT (10*3/UL) BY AUTOMATED COUNT 0.1 10*3/uL Normal [facility] Comment on above: Performed By: #### A MMON #### [facility] ([facility]) [address] [place] [address] VIR BASOPHILS RELATIVE PERCENT BY AUTOMATED COUNT 0.7 % Normal [facility] Comment on above: Performed By: #### A MMON #### [facility] ([facility]) [address] [place] [address] VIR CELLAVISION DIFFERENTIAL TYPE AUTOMATED DIFFERENTIAL [facility] Comment on above: Performed By: #### A MMON #### [facility] ([facility]) [address] [place] [address] VIR Eosinophils (Bld) [#/Vol] 0.0 10*3/uL Normal [facility] Comment on above: Performed By: #### A MMON #### [facility] ([facility]) [address] [place] [address] VIR EOSINOPHILS RELATIVE PERCENT BY AUTOMATED COUNT 0.0 % [facility] Comment on above: Performed By: #### A MMON #### [facility] ([facility]) [address] [place] [address] VIR Erythrocyte distribution width (RBC) [Ratio] 15.1 % High 11.5-15 [facility] Comment on above: Performed By: #### A MMON #### [facility] ([facility]) [address] [place] [address] VIR Hematocrit (Bld) [Volume fraction] 33.6 % Low 35-47 [facility] Comment on above: Performed By: #### A MMON #### [facility] ([facility]) [address] [place] [address] VIR Hemoglobin (Bld) [Mass/Vol] 11.0 g/dL Low 11.7-15.5 [facility] Comment on above: Performed By: #### A MMON #### [facility] ([facility]) [address] [place] [address] VIR LYMPHOCYTES ABSOLUTE COUNT (10*3/UL) BY AUTOMATED COUNT 0.8 10*3/uL [facility] Comment on above: Performed By: #### A MMON #### [facility] ([facility]) [address] [place] [address] VIR LYMPHOCYTES RELATIVE PERCENT BY AUTOMATED COUNT 6.2 % Normal [facility] Comment on above: Performed By: #### A MMON #### [facility] ([facility]) [address] [place] [address] VIR MCH (RBC) [Entitic mass] 27.1 pg Normal 27-34 [facility] Comment on above: Performed By: #### A MMON #### [facility] ([facility]) [address] [place] [address] VIR MCHC (RBC) [Mass/Vol] 32.6 g/dL Normal 32-36 [facility] Comment on above: Performed By: #### A MMON #### [facility] ([facility]) [address] [place] [address] VIR MCV (RBC) [Entitic vol] 83 fL Normal 80-100 [facility] Comment on above: Performed By: #### A MMON #### [facility] ([facility]) [address] [place] [address] VIR MONOCYTES ABSOLUTE COUNT (10*3/UL) BY AUTOMATED COUNT 0.6 10*3/uL Normal [facility] Comment on above: Performed By: #### A MMON #### [facility] ([facility]) [address] [place] [address] VIR MONOCYTES RELATIVE PERCENT BY AUTOMATED COUNT 4.8 % Normal [facility] Comment on above: Performed By: #### A MMON #### [facility] ([facility]) [address] [place] [address] VIR NEUTROPHILS ABSOLUTE COUNT BY AUTOMATED COUNT 10.8 10*3/uL Normal [facility] Comment on above: Performed By: #### A MMON #### [facility] ([facility]) [address] [place] [address] VIR NEUTROPHILS RELATIVE PERCENT BY AUTOMATED COUNT 88.3 % Normal [facility] Comment on above: Performed By: #### A MMON #### [facility] ([facility]) [address] [place] [address] VIR Platelet mean volume (Bld) [Entitic vol] 9.2 fL Normal 7-12 [facility] Comment on above: Performed By: #### A MMON #### [facility] ([facility]) [address] [place] [address] VIR Platelets (Bld) [#/Vol] 183 10*3/uL Normal 150-450 [facility] Comment on above: Performed By: #### A MMON #### [facility] ([facility]) [address] [place] [address] VIR RBC COUNT 4.05 [id number]/L Normal 3.8-5.2 [facility] Comment on above: Performed By: #### A MMON #### [facility] ([facility]) [address] [place] [address] VIR WBC (Bld) [#/Vol] 12.2 10*3/uL High 4-11 [facility] Comment on above: Performed By: #### A MMON #### [facility] ([facility]) [address] [place] [address] VIR CBC auto differentialon 05-0 Basophils (Bld) [#/Vol] 0.1 10*3/uL [facility] Basophils/100 WBC (Bld) 0.7 % [facility] Differential cell count method Nom (Bld) AUTOMATED DIFFERENTIAL [facility] Eosinophils (Bld) [#/Vol] 0 10*3/uL [facility] Eosinophils/100 WBC (Bld) 0 % [facility] Erythrocyte distribution width (RBC) [Ratio] 15.1 % High 11.5 - 15 % [facility] Hematocrit (Bld) [Volume fraction] 33.6 % Low 35 - 47 % [facility] Hemoglobin (Bld) [Mass/Vol] 11 g/dL Low 11.7 - 15.5 g/dL [facility] Interpretation and review of laboratory results Abnormal [facility] Lymphocytes (Bld) [#/Vol] 0.8 10*3/uL [facility] Lymphocytes/100 WBC (Bld) 6.2 % [facility] MCH (RBC) [Entitic mass] 27.1 pg 27 - 34 pg [facility] MCHC (RBC) [Mass/Vol] 32.6 g/dL 32 - 3 6 g/dL [facility] MCV (RBC) [Entitic vol] 83 fL 80 - 100 fL [facility] Monocytes (Bld) [#/Vol] 0.6 10*3/uL [facility] Monocytes/100 WBC (Bld) 4.8 % [facility] Neutrophils (Bld) [#/Vol] 10.8 10*3/uL [facility] Neutrophils/100 WBC (Bld) 88.3 % [facility] Platelet mean volume (Bld) [Entitic vol] 9.2 fL 7 - 12 fL [facility] Platelets (Bld) [#/Vol] 183 10*3/uL [facility] RBC (Bld) [#/Vol] 4.05 10*6/uL [facility] WBC LM Ql (Sput) 12.[address] [facility] ELECTROLYTE PANELon 09-22-19 25 Anion gap [Moles/Vol] 11 mmol/L Normal 5-15 [facility] Comment on above: Performed By: #### C MP #### [facility] ([facility]) [address] [place] [address] VIR Chloride [Moles/Vol] 113 mmol/L High 98-109 [facility] Comment on above: Performed By: #### C MP #### [facility] ([facility]) [address] [place] [address] VIR CO2 [Moles/Vol] 22 mmol/L Normal 22-32 [facility] Comment on above: Performed By: #### C MP #### [facility] ([facility]) [address] [place] [address] VIR Potassium [Moles/Vol] 4.2 mmol/L Normal 3.5-5.0 [facility] Comment on above: Performed By: #### C MP #### [facility] ([facility]) [address] [place] [address] VIR Sodium [Moles/Vol] 146 mmol/L Normal 134-146 [facility] Comment on above: Performed By: #### C MP #### [facility] ([facility]) [address] [place] [address] VIR Anion gap [Moles/Vol] 9 mmol/L Normal 5-15 [facility] Comment on above: Performed By: #### L ACTS #### [facility] ([facility]) [address] [place] [address] VIR Chloride [Moles/Vol] 112 mmol/L High 98-109 [facility] Comment on above: Performed By: #### L ACTS #### [facility] ([facility]) [address] [place] [address] VIR CO2 [Moles/Vol] 24 mmol/L Normal 22-32 [facility] Comment on above: Performed By: #### L ACTS #### [facility] ([facility]) [address] [place] [address] VIR Potassium [Moles/Vol] 4.1 mmol/L Normal 3.5-5.0 [facility] Comment on above: Performed By: #### L ACTS #### [facility] ([facility]) [address] [place] [address] VIR Sodium [Moles/Vol] 145 mmol/L Normal 134-146 [facility] Comment on above: Performed By: #### L ACTS #### [facility] ([facility]) [address] [place] [address] VIR Electrolyte panelOrdered By: Tk Keene on 09-21-2024 Anion gap [Moles/Vol] 11 mmol/L 5 - 15 mmol/L [facility] Chloride [Moles/Vol] 113 mmol/L High 98 - 10 9 mmol/L [facility] CO2 [Moles/Vol] 22 mmol/L 22 - 32 mmol/L [facility] Interpretation and review of laboratory results Abnormal [facility] Potassium [Moles/Vol] 4.2 mmol/L 3.5 - 5.0 mmol/L [facility] Sodium [Moles/Vol] 146 mmol/L 134 - 146 mmol/L [facility] Electrolyte panelOrdered By: Alexa Carrero on 09-21-2024 Anion gap [Moles/Vol] 9 mmol/L 5 - 15 mmol/L [facility] Chloride [Moles/Vol] 112 mmol/L High 98 - 10 9 mmol/L [facility] CO2 [Moles/Vol] 24 mmol/L 22 - 32 mmol/L [facility] Interpretation and review of laboratory results Abnormal [facility] Potassium [Moles/Vol] 4.1 mmol/L 3.5 - 5.0 mmol/L [facility] Sodium [Moles/Vol] 145 mmol/L 134 - 146 mmol/L [facility] Glomerular basement membrane IgG ABon 09-21-2024 Glomerular basement membrane IgG Qn (S) NINF [facility] IONIZED CALCIUMon 09-21-2024 IONIZED CALCIUM - ICAN 5.1 mg/dL Normal 4.5-5.3 [facility] Comment on above: Performed By: #### A MMON #### [facility] ([facility]) [address] [place] [address] VIR IONIZED MAGNESIUMon 09-22-19 Magnesium [Moles/Vol] 0.61 mmol/L Normal 0.45-0.74 [facility] Comment on above: Performed By: #### L ACTS #### [facility] ([facility]) [address] [place] [address] VIR Ionized calciumon 09-21-2024 Calcium.ionized ISE [Moles/Vol] 5.1 mg/dL 4.5 - 5.3 mg/dL [facility] Interpretation and review of laboratory results Normal [facility] Ionized magnesiumon 09-22-19 Interpretation and review of laboratory results Normal [facility] Magnesium Ionized ISE (Bld) [Moles/Vol] 0.61 mmol/L 0.45 - 0.74 mmol/L [facility] MAGNESIUMon 09-21-2024 Magnesium [Mass/Vol] 1.8 mg/dL Normal 1.8-2.6 [facility] Comment on above: Performed By: #### A MMON #### [facility] ([facility]) [address] [place] [address] VIR Magnesiumon 09-21-2024 Magnesium [Mass/Vol] 1.8 mg/dL 1.8 - 2 .6 mg/dL [facility] Myeloperoxidase ABon 025 Myeloperoxidase Ab Qn (S) [facility] No Panel Informationon 09-21 Interpretation and review of laboratory results Normal [facility] Interpretation and review of laboratory results Normal [facility] PHOSPHORUSon 09-21-2024 Phosphate [Mass/Vol] 2.7 mg/dL Normal 2.4-4.9 [facility] Comment on above: Performed By: #### L ACTS #### [facility] ([facility]) [address] [place] [address] VIR Phosphoruson 09-21-2024 Phosphate [Mass/Vol] 2.7 mg/dL 2.4 - 4 .9 mg/dL [facility] Proteinase 3 AB PR3on 2024 Proteinase 3 Ab Qn (S) [facility] VANCOMYCIN, RANDOMon 025 VANCOMYCIN 16.0 ug/mL Normal 5.0-40.0 [facility] Comment on above: Order Comment: Resul t did not trigger repeat Lactate, re-order if needed. Performed By: #### L ACTS #### [facility] ([facility]) [address] [place] [address] VIR Vancomycin, randomon 025 Interpretation and review of laboratory results Normal [facility] Vancomycin [Susc] 16 ug/mL 5.0 - 40.0 ug/mL [facility] BASIC METABOLIC PANELon 05-0 Anion gap [Moles/Vol] 11 mmol/L Normal 5-15 [facility] Comment on above: Performed By: #### N UM #### [facility] ([facility]) [address] [place] [address] VIR Calcium [Mass/Vol] 9.3 mg/dL Normal 8.5-10.5 [facility] Comment on above: Performed By: #### N UM #### [facility] ([facility]) [address] [place] [address] VIR Chloride [Moles/Vol] 119 mmol/L High 98-109 [facility] Comment on above: Performed By: #### N UM #### [facility] ([facility]) [address] [place] [address] VIR CO2 [Moles/Vol] 24 mmol/L Normal 22-32 [facility] Comment on above: Performed By: #### N UM #### [facility] ([facility]) [address] [place] [address] VIR Creatinine [Mass/Vol] 2.60 mg/dL High 0.40-1.00 [facility] Comment on above: Result Comment: METH OD TRACEABLE TO IDMS STANDARD Performed By: #### N UM #### [facility] ([facility]) [address] [place] [address] VIR GFR/1.73 sq M.predicted among non-blacks MDRD (S/P/Bld) [Vol rate/Area] 21 mL/min/{1.73_m2} Low >=60 [facility] Comment on above: Result Comment: Repo rted eGFR is based on the CKD-EPI 2020 equation that does not use a race coefficient. Performed By: #### N UM #### [facility] ([facility]) [address] [place] [address] VIR Glucose [Mass/Vol] 149 mg/dL High 65-99 [facility] Comment on above: Performed By: #### N UM #### [facility] ([facility]) [address] [place] [address] VIR Potassium [Moles/Vol] 4.0 mmol/L Normal 3.5-5.0 [facility] Comment on above: Performed By: #### N UM #### [facility] ([facility]) [address] [place] [address] VIR Sodium [Moles/Vol] 154 mmol/L High 134-146 [facility] Comment on above: Performed By: #### N UM #### [facility] ([facility]) [address] [place] [address] VIR Urea nitrogen [Mass/Vol] 38 mg/dL High 5-23 [facility] Comment on above: Performed By: #### N UM #### [facility] ([facility]) [address] [place] [address] VIR BLOOD CULTUREon 09-20-2024 Bacteria identified Cx Nom (Bld) CULTURE RESULTS NO GROWTH 5 DAYS Normal [facility] Comment on above: Order Comment: Resul t did not trigger repeat Lactate, re-order if needed. Performed By: #### L ACTS #### [facility] ([facility]) [address] [place] [address] VIR Bacteria identified Cx Nom (Bld) CULTURE RESULTS NO GROWTH 5 DAYS Normal [facility] Comment on above: Order Comment: *SIRS [...] be affected. Performed By: #### C #### [facility] ([facility]) [address] [place] [address] VIR Basic Metabolic Panelon 05- Anion gap [Moles/Vol] 11 mmol/L 5 - 15 mmol/L [facility] Calcium [Mass/Vol] 9.3 mg/dL 8.5 - 10. 5 mg/dL [facility] Chloride [Moles/Vol] 119 mmol/L High 98 - 10 9 mmol/L [facility] CO2 [Moles/Vol] 24 mmol/L 22 - 32 mmol/L [facility] Creatinine [Mass/Vol] 2.6 mg/dL High 0.40 - 1.00 mg/dL [facility] EGFR Non-Race Dependent 21 Low - PINF [facility] Glucose [Mass/Vol] 149 mg/dL High 65 - 99 mg/dL [facility] Interpretation and review of laboratory results Abnormal [facility] Potassium [Moles/Vol] 4 mmol/L 3.5 - 5.0 mmol/L [facility] Sodium [Moles/Vol] 154 mmol/L High 134 - 146 mmol/L [facility] Urea nitrogen [Mass/Vol] 38 mg/dL High 5 - 23 mg/dL [facility] CBC WITH AUTO DIFFERENTIALon 09-20-2024 BASOPHILS ABSOLUTE COUNT (10*3/UL) BY AUTOMATED COUNT 0.0 10*3/uL Normal [facility] [facility] Comment on above: Performed By: #### N UM #### [facility] ([facility]) [address] [place] [address] VIR BASOPHILS RELATIVE PERCENT BY AUTOMATED COUNT 0.5 % Normal [facility] Comment on above: Performed By: #### N UM #### [facility] ([facility]) [address] [place] [address] VIR CELLAVISION DIFFERENTIAL TYPE AUTOMATED DIFFERENTIAL Normal [facility] Comment on above: Performed By: #### N UM #### [facility] ([facility]) [address] [place] [address] VIR Eosinophils (Bld) [#/Vol] 0.0 10*3/uL Normal [facility] Comment on above: Performed By: #### N UM #### [facility] ([facility]) [address] [place] [address] VIR EOSINOPHILS RELATIVE PERCENT BY AUTOMATED COUNT 0.0 % Normal [facility] Comment on above: Performed By: #### N UM #### [facility] ([facility]) [address] [place] [address] VIR Erythrocyte distribution width (RBC) [Ratio] 15.6 % High 11.5-15 [facility] Comment on above: Performed By: #### N UM #### [facility] ([facility]) [address] [place] [address] VIR Hematocrit (Bld) [Volume fraction] 33.5 % Low 35-47 [facility] Comment on above: Performed By: #### N UM #### [facility] ([facility]) [address] [place] [address] VIR Hemoglobin (Bld) [Mass/Vol] 11.0 g/dL Low 11.7-15.5 [facility] Comment on above: Performed By: #### N UM #### [facility] ([facility]) [address] [place] [address] VIR LYMPHOCYTES ABSOLUTE COUNT (10*3/UL) BY AUTOMATED COUNT 0.5 10*3/uL Normal [facility] Comment on above: Performed By: #### N UM #### [facility] ([facility]) [address] [place] [address] VIR LYMPHOCYTES RELATIVE PERCENT BY AUTOMATED COUNT 5.6 % Normal [facility] Comment on above: Performed By: #### N UM #### [facility] ([facility]) [address] [place] [address] VIR MCH (RBC) [Entitic mass] 26.9 pg Low 27-34 [facility] Comment on above: Performed By: #### N UM #### [facility] ([facility]) [address] [place] [address] VIR MCHC (RBC) [Mass/Vol] 32.8 g/dL Normal 32-36 [facility] Comment on above: Performed By: #### N UM #### [facility] ([facility]) [address] [facility] [place] [address] VIR MCV (RBC) [Entitic vol] 82 fL Normal 80-100 [facility] Comment on above: Performed By: #### N UM #### [facility] ([facility]) [address] [facility] [place] [address] VIR MONOCYTES ABSOLUTE COUNT (10*3/UL) BY AUTOMATED COUNT 0.4 10*3/uL Normal [facility] Comment on above: Performed By: #### N UM #### [facility] ([facility]) [address] [facility] [place] [address] VIR MONOCYTES RELATIVE PERCENT BY AUTOMATED COUNT 4.3 % Normal [facility] Comment on above: Performed By: #### N UM #### [facility] ([facility]) [address] [place] [address] VIR NEUTROPHILS ABSOLUTE COUNT BY AUTOMATED COUNT 8.0 10*3/uL Normal [facility] Comment on above: Performed By: #### N UM #### [facility] ([facility]) [address] [place] [address] VIR NEUTROPHILS RELATIVE PERCENT BY AUTOMATED COUNT 89.6 % Normal [facility] Comment on above: Performed By: #### N UM #### [facility] ([facility]) [address] [facility] [place] [address] VIR Platelet mean volume (Bld) [Entitic vol] 9.0 fL Normal 7-12 [facility] Comment on above: Performed By: #### N UM #### [facility] ([facility]) [address] [place] [address] VIR Platelets (Bld) [#/Vol] 190 10*3/uL Normal 150-450 [facility] Comment on above: Performed By: #### N UM #### [facility] ([facility]) [address] [place] [address] VIR RBC COUNT 4.08 X10E12/L Normal 3.8-5.2 [facility] Comment on above: Performed By: #### N UM #### [facility] ([facility]) [address] [place] [address] VIR WBC (Bld) [#/Vol] 8.9 10*3/uL Normal 4-11 [facility] Comment on above: Performed By: #### N UM #### [facility] ([facility]) [address] [place] [address] VIR CBC auto differentialon 05-0 Basophils (Bld) [#/Vol] 0 10*3/uL [facility] Basophils/100 WBC (Bld) 0.5 % [facility] Differential cell count method Nom (Bld) AUTOMATED DIFFERENTIAL [facility] Eosinophils (Bld) [#/Vol] 0 10*3/uL [facility] Eosinophils/100 WBC (Bld) 0 % [facility] Erythrocyte distribution width (RBC) [Ratio] 15.6 % High 11.5 - 15 % [facility] Hematocrit (Bld) [Volume fraction] 33.5 % Low 35 - 47 % [facility] Hemoglobin (Bld) [Mass/Vol] 11 g/dL Low 11.7 - 15.5 g/dL [facility] Interpretation and review of laboratory results Abnormal [facility] Lymphocytes (Bld) [#/Vol] 0.5 10*3/uL [facility] Lymphocytes/100 WBC (Bld) 5.6 % [facility] MCH (RBC) [Entitic mass] 26.9 pg Low 27 - 34 pg [facility] MCHC (RBC) [Mass/Vol] 32.8 g/dL 32 - 3 6 g/dL [facility] MCV (RBC) [Entitic vol] 82 fL 80 - 100 fL [facility] Monocytes (Bld) [#/Vol] 0.4 10*3/uL [facility] Monocytes/100 WBC (Bld) 4.3 % [facility] Neutrophils (Bld) [#/Vol] 8 10*3/uL [facility] Neutrophils/100 WBC (Bld) 89.6 % [facility] Platelet mean volume (Bld) [Entitic vol] 9 fL 7 - 12 fL [facility] Platelets (Bld) [#/Vol] 190 10*3/uL [facility] RBC (Bld) [#/Vol] 4.08 10*6/uL [facility] WBC LM Ql (Sput) 8.9 [facility] CT ABDOMEN AND PELVIS WO CON [...] Mejia MD on 09/20/2024 3:53 PM Normal [facility] CT Abdomen and Pelvis WO con traston 09-20-2024 SECTRAPACS [facility] Radiology Study observation (narrative) [facility] CT Abdomen and Pelvis WO con trastOrdered By: Bipin Mejia on 09-20-2024 [facility] Work Phone: ELECTROLYTE PANELon 09-21-19 25 Anion gap [Moles/Vol] 9 mmol/L Normal 5-15 [facility] Comment on above: Performed By: #### A MMON #### [facility] ([facility]) [address] [place] [address] VIR Chloride [Moles/Vol] 113 mmol/L High 98-109 [facility] Comment on above: Performed By: #### A MMON #### [facility] ([facility]) [address] [place] [address] VIR CO2 [Moles/Vol] 25 mmol/L Normal 22-32 [facility] Comment on above: Performed By: #### A MMON #### [facility] ([facility]) [address] [place] [address] VIR Potassium [Moles/Vol] 5.1 mmol/L High 3.5-5.0 [facility] Comment on above: Result Comment: R-Sp ecimen markedly hemolyzed, results increased Performed By: #### A MMON #### [facility] ([facility]) [address] [place] [address] VIR Sodium [Moles/Vol] 147 mmol/L High 134-146 [facility] Comment on above: Result Comment: R-Sp ecimen markedly hemolyzed, results questionable due to hemolysis Performed By: #### A MMON #### [facility] ([facility]) [address] [place] [address] VIR Anion gap [Moles/Vol] 8 mmol/L Normal 5-15 [facility] Comment on above: Performed By: #### A MMON #### [facility] ([facility]) [address] [place] [address] VIR Chloride [Moles/Vol] 117 mmol/L High 98-109 [facility] Comment on above: Performed By: #### A MMON #### [facility] ([facility]) [address] [place] [address] VIR CO2 [Moles/Vol] 26 mmol/L Normal 22-32 [facility] Comment on above: Performed By: #### A MMON #### [facility] ([facility]) [address] [place] [address] VIR Potassium [Moles/Vol] 4.0 mmol/L Normal 3.5-5.0 [facility] Comment on above: Performed By: #### A MMON #### [facility] ([facility]) [address] [place] [address] VIR Sodium [Moles/Vol] 151 mmol/L High 134-146 [facility] Comment on above: Performed By: #### A MMON #### [facility] ([facility]) [address] [place] [address] VIR Electrolyte panelOrdered By: Med Quiros on 09-20-2024 Anion gap [Moles/Vol] 9 mmol/L 5 - 15 mmol/L [facility] Chloride [Moles/Vol] 113 mmol/L High 98 - 10 9 mmol/L [facility] CO2 [Moles/Vol] 25 mmol/L 22 - 32 mmol/L [facility] Interpretation and review of laboratory results Abnormal [facility] Potassium [Moles/Vol] 5.1 mmol/L High 3.5 - 5.0 mmol/L [facility] Sodium [Moles/Vol] 147 mmol/L High 134 - 146 mmol/L [facility] Electrolyte panelon 09-21-19 25 Anion gap [Moles/Vol] 8 mmol/L 5 - 15 mmol/L [facility] Chloride [Moles/Vol] 117 mmol/L High 98 - 10 9 mmol/L [facility] CO2 [Moles/Vol] 26 mmol/L 22 - 32 mmol/L [facility] Interpretation and review of laboratory results Abnormal [facility] Potassium [Moles/Vol] 4 mmol/L 3.5 - 5.0 mmol/L [facility] Sodium [Moles/Vol] 151 mmol/L High 134 - 146 mmol/L [facility] IONIZED CALCIUMon 09-20-2024 IONIZED CALCIUM - ICAN 5.2 mg/dL Normal 4.5-5.3 [facility] Comment on above: Performed By: #### N UM #### [facility] ([facility]) [address] [place] [address] VIR IONIZED MAGNESIUMon 09-21-19 Magnesium [Moles/Vol] 0.64 mmol/L Normal 0.45-0.74 [facility] Comment on above: Performed By: #### A MMON #### [facility] ([facility]) [address] [place] [address] VIR Ionized calciumon 09-20-2024 Calcium.ionized ISE [Moles/Vol] 5.2 mg/dL 4.5 - 5.3 mg/dL [facility] Interpretation and review of laboratory results Normal [facility] Ionized magnesiumon 09-21-19 25 Interpretation and review of laboratory results Normal [facility] Magnesium Ionized ISE (Bld) [Moles/Vol] 0.64 mmol/L 0.45 - 0.74 mmol/L [facility] MAGNESIUMon 09-20-2024 Magnesium [Mass/Vol] 1.8 mg/dL Normal 1.8-2.6 [facility] Comment on above: Performed By: #### N UM #### [facility] ([facility]) [address] [place] [address] VIR MR BRAIN SYNAPTIVEon 025 MR BRAIN SYNAPTIVE MR BRAIN SYNAPTIVE History: 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 Metastasis can also present in this fashion. Finalized by Juan Antonio Lindquist MD on 09/20/2024 7:17 AM Normal [facility] MR Brainon 09-20-2024 SECTRAPACS [facility] Radiology Study observation (narrative) [facility] MR BrainOrdered By: Juan Antonio gilmore on 09-20-2024 [facility] Work Phone: Magnesiumon 09-20-2024 Magnesium [Mass/Vol] 1.8 mg/dL 1.8 - 2 .6 mg/dL [facility] No Panel Informationon 09-20 Interpretation and review of laboratory results Normal [facility] PHOSPHORUSon 09-20-2024 Phosphate [Mass/Vol] 3.5 mg/dL Normal 2.4-4.9 [facility] Comment on above: Performed By: #### N UM #### [facility] ([facility]) [address] [place] [address] VIR Phosphoruson 09-20-2024 Phosphate [Mass/Vol] 3.5 mg/dL 2.4 - 4 .9 mg/dL [facility] VANCOMYCIN, RANDOMon 025 VANCOMYCIN 10.0 ug/mL Normal 5.0-40.0 [facility] Comment on above: Order Comment: Peak 30-40 ug/mLTrough 5-20 ug/ml Performed By: #### A MMON #### [facility] ([facility]) [address] [place] [address] VIR Vancomycin, randomon 025 Interpretation and review of laboratory results Normal [facility] Vancomycin [Susc] 10 ug/mL 5.0 - 40.0 ug/mL [facility] X-ray abdomen NG Tube placem ent 1 viewon 09-20-2024 SECTRAPACS [facility] Radiology Study observation (narrative) [facility] X-ray abdomen NG Tube placem ent 1 viewOrdered By: Thad Aguero on 09-20-2024 [facility] Work Phone: XR ABD NG TUBE PLACEMENT 1 V IEWon 09-20-2024 XR ABD NG TUBE PLACEMENT 1 VIEW XR ABD NG TUBE PLACEMENT 1 VIEW Supine abdominal radiograph HISTORY: NG placement COMPARISON: None IMPRESSION: NG tube extends below the diaphragm into the stomach with tip in the distal gastric body. Finalized by Thad Aguero MD on 09/20/2024 8:04 PM Normal [facility] AMMONIAon 09-19-2024 Ammonia (P) [Moles/Vol] 24 umol/L Normal 18-72 [facility] Comment on above: Performed By: #### A MMON #### [facility] ([facility]) [address] [place] [address] VIR MAGI SCREEN W/ REFLEXon 09-19 MAGI SCREEN W/REFLEX Negative Normal Negative [facility] Comment on above: Order Comment: Resul t did not trigger repeat Lactate, re-order if needed. Performed By: #### L ACTS #### [facility] ([facility]) [address] [place] [address] VIR APTTon 09-19-2024 aPTT Coag (PPP) [Time] 28 s [facility] Interpretation and review of laboratory results Normal [facility] aPTT Coag (Bld) [Time] 28 s Normal 26-37 [facility] Comment on above: Performed By: #### P TT #### [facility] ([facility]) [address] [place] [address] VIR Ammoniaon 09-19-2024 Ammonia (P) [Moles/Vol] 24 umol/L 18 - 72 umol/L [facility] Interpretation and review of laboratory results Normal [facility] BASIC METABOLIC PANELon 05-0 Anion gap [Moles/Vol] 17 mmol/L High 5-15 [facility] Comment on above: Performed By: #### P INR #### [facility] ([facility]) [address] [place] [address] VIR Calcium [Mass/Vol] 9.2 mg/dL Normal 8.5-10.5 [facility] Comment on above: Performed By: #### P INR #### [facility] ([facility]) [address] [place] [address] VIR Chloride [Moles/Vol] 120 mmol/L High 98-109 [facility] Comment on above: Performed By: #### P INR #### [facility] ([facility]) [address] [place] [address] VIR Creatinine [Mass/Vol] 7.54 mg/dL High 0.40-1.00 [facility] Comment on above: Result Comment: METH OD TRACEABLE TO IDMS STANDARD Performed By: #### P INR #### [facility] ([facility]) [address] [place] [address] VIR GFR/1.73 sq M.predicted among non-blacks MDRD (S/P/Bld) [Vol rate/Area] 6 mL/min/{1.73_m2} Low >=60 [facility] Comment on above: Result Comment: Repo rted eGFR is based on the CKD-EPI 2020 equation that does not use a race coefficient. Performed By: #### P INR #### [facility] ([facility]) [address] [place] [address] VIR Glucose [Mass/Vol] 107 mg/dL High 65-99 [facility] Comment on above: Performed By: #### P INR #### [facility] ([facility]) [address] [place] [address] VIR Potassium [Moles/Vol] 4.5 mmol/L Normal 3.5-5.0 [facility] Comment on above: Performed By: #### P INR #### [facility] ([facility]) [address] [place] [address] VIR Sodium [Moles/Vol] 159 mmol/L High 134-146 [facility] Comment on above: Performed By: #### P INR #### [facility] ([facility]) [address] [place] [address] VIR Urea nitrogen [Mass/Vol] 81 mg/dL High 5-23 [facility] Comment on above: Performed By: #### P INR #### [facility] ([facility]) [address] [place] [address] VIR BEDSIDE GLUCOSEon 09-19-2024 Glucose [Mass/Vol] 110 mg/dL High 65-99 [facility] Comment on above: Performed By: #### N UM #### [facility] ([facility]) [address] [place] [address] VIR BLOOD CULTUREon 09-19-2024 Bacteria identified Cx Nom (Bld) CULTURE RESULTS STAPHYLOCOCCUS, COAGULASE NEGATIVE Staphylococcus, coagulase negative Not S. Lugdunensis Possible Collection Contamination STAPHYLOCOCCUS, COAGULASE NEGATIVE Staphylococcus, coagulase negative Not S. Lugdunensis Variant Possible Collection Contamination GRAM STAIN Gram positive cocci in clusters Abnormal [facility] Comment on above: Order Comment: *SIRS Criteria: (must display 2 without other explanation)-Temperature < 36 or >38-Pulse >90-Resp rate >20-WBC less than 4K or greater than 12KRepeat blood cultures not needed:-To document that a blood culture is a contaminant when 1 of 2 bottles is positive for a common contaminant (already listed in [facility] with the culture result)-To document clearance of gram negative bacteremia in patients with suspected urinary source who are improvingSuboptimal volume of blood collected, Results may be affected. Performed By: #### N UM #### [facility] ([facility]) [address] [place] [address] VIR Bacteria identified Cx Nom (Bld) CULTURE RESULTS NO GROWTH 5 DAYS Normal [facility] Comment on above: Order Comment: *SIRS Criteria: (must display 2 without other explanation)-Temperature < 36 or >38-Pulse >90-Resp rate >20-WBC less than 4K or greater than 12KRepeat blood cultures not needed:-To document that a blood culture is a contaminant when 1 of 2 bottles is positive for a common contaminant (already listed in [facility] with the culture result)-To document clearance of gram negative bacteremia in patients with suspected urinary source who are improving Performed By: #### N UM #### [facility] ([facility]) [address] [place] [address] VIR BLOOD GAS, ARTERIALon 2024 BASE,DEFICIT -8.0 mmol/L Low 0.0-2.0 [facility] Comment on above: Performed By: #### P INR #### [facility] ([facility]) [address] [place] [address] VIR HCO3 (Bld) [Moles/Vol] 16.8 mmol/L Low 22.0-26.0 [facility] Comment on above: Performed By: #### P INR #### [facility] ([facility]) [address] [place] [address] VIR Oxygen saturation in Blood 95.0 % Normal >90.0 [facility] Comment on above: Performed By: #### P INR #### [facility] ([facility]) [address] [place] [address] VIR PCO2 ARTERIAL 29.4 mmHg Low 35.0-45.0 [facility] Comment on above: Performed By: #### P INR #### [facility] ([facility]) [address] [place] [address] VIR PH ARTERIAL 7.364 Normal 7.350-7.45 0 [facility] Comment on above: Performed By: #### P INR #### [facility] ([facility]) [address] [place] [address] VIR PO2 ARTERIAL 78 mmHg Low 80-100 [facility] Comment on above: Performed By: #### P INR #### [facility] ([facility]) [address] [place] [address] VIR POC WILI'S TEST Pass Normal [facility] Comment on above: Performed By: #### P INR #### [facility] ([facility]) [address] [place] [address] VIR SAMPLE SITE L Rad Normal [facility] Comment on above: Performed By: #### P INR #### [facility] ([facility]) [address] [place] [address] VIR SAMPLE TYPE ARTERIAL Normal [facility] Comment on above: Performed By: #### P INR #### [facility] ([facility]) [address] [place] [address] VIR SOURCE OF OXYGEN Room Air Normal [facility] Comment on above: Performed By: #### P INR #### [facility] ([facility]) [address] [place] [address] VIR Basic Metabolic Panelon 05-0 Anion gap [Moles/Vol] 17 mmol/L High 5 - 15 mmol/L [facility] Calcium [Mass/Vol] 9.2 mg/dL 8.5 - 10. 5 mg/dL [facility] Chloride [Moles/Vol] 120 mmol/L High 98 - 10 9 mmol/L [facility] CO2 [Moles/Vol] 22 mmol/L 22 - 32 mmol/L [facility] Creatinine [Mass/Vol] 7.54 mg/dL High 0.40 - 1.00 mg/dL [facility] EGFR Non-Race Dependent 6 Low - PINF [facility] Glucose [Mass/Vol] 107 mg/dL High 65 - 99 mg/dL [facility] Potassium [Moles/Vol] 4.5 mmol/L 3.5 - 5.0 mmol/L [facility] Sodium [Moles/Vol] 159 mmol/L High 134 - 146 mmol/L [facility] Urea nitrogen [Mass/Vol] 81 mg/dL High 5 - 23 mg/dL [facility] Bedside Glucose *Place/Obtai n serum glucose if >500 per glucometer.on 09-19-2024 Glucose [Mass/Vol] 110 mg/dL High 65 - 99 mg/dL [facility] Interpretation and review of laboratory results Abnormal [facility] Blood pathogens panel KELSIE+no n-probe (Pos bld culture)Ordered By: Dion Shipley on 09-19-2024 Interpretation and review of laboratory results Abnormal [facility] mecA/C gene PCR Detected Abnormal Not Detected [facility] Staphylococcus epidermidis PCR Detected Abnormal Not Detected [facility] CBC WITH AUTO DIFFERENTIALon 09-19-2024 BASOPHILS ABSOLUTE COUNT (10*3/UL) BY AUTOMATED COUNT 0.1 10*3/uL Normal [facility] Comment on above: Performed By: #### P INR #### [facility] ([facility]) [address] [place] [address] VIR BASOPHILS RELATIVE PERCENT BY AUTOMATED COUNT 0.8 % Normal [facility] Comment on above: Performed By: #### P INR #### [facility] ([facility]) [address] [place] [address] VIR CELLAVISION DIFFERENTIAL TYPE AUTOMATED DIFFERENTIAL Normal [facility] Comment on above: Performed By: #### P INR #### [facility] ([facility]) [address] [place] [address] VIR Eosinophils (Bld) [#/Vol] 0.3 10*3/uL Normal [facility] Comment on above: Performed By: #### P INR #### [facility] ([facility]) [address] [place] [address] VIR EOSINOPHILS RELATIVE PERCENT BY AUTOMATED COUNT 2.8 % Normal [facility] Comment on above: Performed By: #### P INR #### [facility] ([facility]) [address] [place] [address] VIR Erythrocyte distribution width (RBC) [Ratio] 15.6 % High 11.5-15 [facility] Comment on above: Performed By: #### P INR #### [facility] ([facility]) [address] [place] [address] VIR Hematocrit (Bld) [Volume fraction] 34.9 % Low 35-47 [facility] Comment on above: Performed By: #### P INR #### [facility] ([facility]) [address] [place] [address] VIR Hemoglobin (Bld) [Mass/Vol] 11.4 g/dL Low 11.7-15.5 [facility] Comment on above: Performed By: #### P INR #### [facility] ([facility]) [address] [place] [address] VIR LYMPHOCYTES ABSOLUTE COUNT (10*3/UL) BY AUTOMATED COUNT 0.7 10*3/uL [facility] Comment on above: Performed By: #### P INR #### [facility] ([facility]) [address] [place] [address] VIR LYMPHOCYTES RELATIVE PERCENT BY AUTOMATED COUNT 7.9 % Normal [facility] Comment on above: Performed By: #### P INR #### [facility] ([facility]) [address] [place] [address] VIR MCH (RBC) [Entitic mass] 27.0 pg Normal 27-34 [facility] Comment on above: Performed By: #### P INR #### [facility] ([facility]) [address] [place] [address] VIR MCHC (RBC) [Mass/Vol] 32.8 g/dL Normal 32-36 [facility] Comment on above: Performed By: #### P INR #### [facility] ([facility]) [address] [place] [address] VIR MCV (RBC) [Entitic vol] 82 fL Normal 80-100 [facility] Comment on above: Performed By: #### P INR #### [facility] ([facility]) [address] [place] [address] VIR MONOCYTES ABSOLUTE COUNT (10*3/UL) BY AUTOMATED COUNT 0.8 10*3/uL Normal [facility] Comment on above: Performed By: #### P INR #### [facility] ([facility]) [address] [place] [address] VIR MONOCYTES RELATIVE PERCENT BY AUTOMATED COUNT 8.9 % Normal [facility] Comment on above: Performed By: #### P INR #### [facility] ([facility]) [address] [place] [address] VIR NEUTROPHILS ABSOLUTE COUNT BY AUTOMATED COUNT 7.3 10*3/uL Normal [facility] Comment on above: Performed By: #### P INR #### [facility] ([facility]) [address] [place] [address] VIR NEUTROPHILS RELATIVE PERCENT BY AUTOMATED COUNT 79.6 % Normal [facility] Comment on above: Performed By: #### P INR #### [facility] ([facility]) [address] [place] [address] VIR Platelet mean volume (Bld) [Entitic vol] 9.2 fL Normal 7-12 [facility] Comment on above: Performed By: #### P INR #### [facility] ([facility]) [address] [place] [address] VIR Platelets (Bld) [#/Vol] 189 10*3/uL Normal 150-450 [facility] Comment on above: Performed By: #### P INR #### [facility] ([facility]) [address] [place] [address] VIR RBC COUNT 4.23 X10E12/L Normal 3.8-5.2 [facility] Comment on above: Performed By: #### P INR #### [facility] ([facility]) [address] [place] [address] VIR WBC (Bld) [#/Vol] 9.2 10*3/uL Normal 4-11 [facility] Comment on above: Performed By: #### P INR #### [facility] ([facility]) [address] [place] [address] VIR BASOPHILS ABSOLUTE COUNT (10*3/UL) BY AUTOMATED COUNT 0.1 10*3/uL Normal [facility] Comment on above: Performed By: #### C BCA #### [facility] ([facility]) [address] [place] [address] VIR BASOPHILS RELATIVE PERCENT BY AUTOMATED COUNT 0.6 % Normal [facility] Comment on above: Performed By: #### C BCA #### [facility] ([facility]) [address] [place] [address] VIR CELLAVISION DIFFERENTIAL TYPE AUTOMATED DIFFERENTIAL Normal [facility] Comment on above: Performed By: #### C BCA #### [facility] ([facility]) [address] [place] [address] VIR Eosinophils (Bld) [#/Vol] 0.4 10*3/uL Normal [facility] Comment on above: Performed By: #### C BCA #### [facility] ([facility]) [address] [place] [address] VIR EOSINOPHILS RELATIVE PERCENT BY AUTOMATED COUNT 3.4 % Normal [facility] Comment on above: Performed By: #### C BCA #### [facility] ([facility]) [address] [place] [address] VIR Erythrocyte distribution width (RBC) [Ratio] 15.7 % High 11.5-15 [facility] Comment on above: Performed By: #### C BCA #### [facility] ([facility]) [address] [place] [address] VIR Hematocrit (Bld) [Volume fraction] 34.9 % Low 35-47 [facility] Comment on above: Performed By: #### C BCA #### [facility] ([facility]) [address] [place] [address] VIR Hemoglobin (Bld) [Mass/Vol] 11.5 g/dL Low 11.7-15.5 [facility] Comment on above: Performed By: #### C BCA #### [facility] ([facility]) [address] [place] [address] VIR LYMPHOCYTES ABSOLUTE COUNT (10*3/UL) BY AUTOMATED COUNT 0.8 10*3/uL Normal [facility] Comment on above: Performed By: #### C BCA #### [facility] ([facility]) [address] [place] [address] VIR LYMPHOCYTES RELATIVE PERCENT BY AUTOMATED COUNT 7.5 % Normal [facility] Comment on above: Performed By: #### C BCA #### [facility] ([facility]) [address] [place] [address] VIR MCH (RBC) [Entitic mass] 27.7 pg Normal 27-34 [facility] Comment on above: Performed By: #### C BCA #### [facility] ([facility]) [address] [place] [address] VIR MCHC (RBC) [Mass/Vol] 33.1 g/dL Normal 32-36 [facility] Comment on above: Performed By: #### C BCA #### [facility] ([facility]) [address] [place] [address] VIR MCV (RBC) [Entitic vol] 84 fL Normal 80-100 [facility] Comment on above: Performed By: #### C BCA #### [facility] ([facility]) [address] [place] [address] VIR MONOCYTES ABSOLUTE COUNT (10*3/UL) BY AUTOMATED COUNT 0.9 10*3/uL Normal [facility] Comment on above: Performed By: #### C BCA #### [facility] ([facility]) [address] [place] [address] VIR MONOCYTES RELATIVE PERCENT BY AUTOMATED COUNT 9.2 % Normal [facility] Comment on above: Performed By: #### C BCA #### [facility] ([facility]) [address] [place] [address] VIR NEUTROPHILS ABSOLUTE COUNT BY AUTOMATED COUNT 8.2 10*3/uL Normal [facility] Comment on above: Performed By: #### C BCA #### [facility] ([facility]) [address] [place] [address] VIR NEUTROPHILS RELATIVE PERCENT BY AUTOMATED COUNT 79.3 % Normal [facility] Comment on above: Performed By: #### C BCA #### [facility] ([facility]) [address] [place] [address] VIR Platelet mean volume (Bld) [Entitic vol] 9.2 fL Normal 7-12 [facility] Comment on above: Performed By: #### C BCA #### [facility] ([facility]) [address] [place] [address] VIR Platelets (Bld) [#/Vol] 199 10*3/uL Normal 150-450 [facility] Comment on above: Performed By: #### C BCA #### [facility] ([facility]) [address] [place] [address] VIR RBC COUNT 4.16 X10E12/L Normal 3.8-5.2 [facility] Comment on above: Performed By: #### C BCA #### [facility] ([facility]) [address] [place] [address] VIR WBC (Bld) [#/Vol] 10.3 10*3/uL Normal 4-11 [facility] Comment on above: Performed By: #### C BCA #### [facility] ([facility]) [address] [place] [address] VIR CBC auto differentialon 05-0 Basophils (Bld) [#/Vol] 0.1 10*3/uL [facility] Basophils/100 WBC (Bld) 0.8 % [facility] Differential cell count method Nom (Bld) AUTOMATED DIFFERENTIAL [facility] Eosinophils (Bld) [#/Vol] 0.3 10*3/uL [facility] Eosinophils/100 WBC (Bld) 2.8 % [facility] Erythrocyte distribution width (RBC) [Ratio] 15.6 % High 11.5 - 15 % [facility] Hematocrit (Bld) [Volume fraction] 34.9 % Low 35 - 47 % [facility] Hemoglobin (Bld) [Mass/Vol] 11.4 g/dL Low 11.7 - 15.5 g/dL [facility] Interpretation and review of laboratory results Abnormal [facility] Lymphocytes (Bld) [#/Vol] 0.7 10*3/uL [facility] Lymphocytes/100 WBC (Bld) 7.9 % [facility] MCH (RBC) [Entitic mass] 27 pg 27 - 34 pg [facility] MCHC (RBC) [Mass/Vol] 32.8 g/dL 32 - 3 6 g/dL [facility] MCV (RBC) [Entitic vol] 82 fL 80 - 100 fL [facility] Monocytes (Bld) [#/Vol] 0.8 10*3/uL [facility] Monocytes/100 WBC (Bld) 8.9 % [facility] Neutrophils (Bld) [#/Vol] 7.3 10*3/uL [facility] Neutrophils/100 WBC (Bld) 79.6 % [facility] Platelet mean volume (Bld) [Entitic vol] 9.2 fL 7 - 12 fL [facility] Platelets (Bld) [#/Vol] 189 10*3/uL [facility] RBC (Bld) [#/Vol] 4.23 10*6/uL [facility] WBC LM Ql (Sput) 9.2 [facility] Basophils (Bld) [#/Vol] 0.1 10*3/uL [facility] Basophils/100 WBC (Bld) 0.6 % [facility] Differential cell count method Nom (Bld) AUTOMATED DIFFERENTIAL [facility] Eosinophils (Bld) [#/Vol] 0.4 10*3/uL [facility] Eosinophils/100 WBC (Bld) 3.4 % [facility] Erythrocyte distribution width (RBC) [Ratio] 15.7 % High 11.5 - 15 % [facility] Hematocrit (Bld) [Volume fraction] 34.9 % Low 35 - 47 % [facility] Hemoglobin (Bld) [Mass/Vol] 11.5 g/dL Low 11.7 - 15.5 g/dL [facility] Interpretation and review of laboratory results Abnormal [facility] Lymphocytes (Bld) [#/Vol] 0.8 10*3/uL [facility] Lymphocytes/100 WBC (Bld) 7.5 % [facility] MCH (RBC) [Entitic mass] 27.7 pg 27 - 34 pg [facility] MCHC (RBC) [Mass/Vol] 33.1 g/dL 32 - 3 6 g/dL [facility] MCV (RBC) [Entitic vol] 84 fL 80 - 100 fL [facility] Monocytes (Bld) [#/Vol] 0.9 10*3/uL [facility] Monocytes/100 WBC (Bld) 9.2 % [facility] Neutrophils (Bld) [#/Vol] 8.2 10*3/uL [facility] Neutrophils/100 WBC (Bld) 79.3 % [facility] Platelet mean volume (Bld) [Entitic vol] 9.2 fL 7 - 12 fL [facility] Platelets (Bld) [#/Vol] 199 10*3/uL [facility] RBC (Bld) [#/Vol] 4.16 10*6/uL [facility] WBC LM Ql (Sput) 10.3 [facility] CK TOTALon 09-19-2024 CPK 18 U/L Low 24-170 [facility] Comment on above: Performed By: #### P TT #### [facility] ([facility]) [address] [place] [address] VIR CPK 18 U/L Low 24-170 [facility] Comment on above: Performed By: #### C PK #### [facility] ([facility]) [address] [place] [address] VIR CK Totalon 09-19-2024 CK [Catalytic activity/Vol] 18 U/L Low 24 - 170 U/L [facility] CK [Catalytic activity/Vol] 18 U/L Low 24 - 170 U/L [facility] Interpretation and review of laboratory results Abnormal [facility] COMPLEMENT PROFILE (C3 AND C 4)on 09-19-2024 COMPLEMENT C3 196 mg/dL High 86-184 [facility] Comment on above: Performed By: #### P TT #### [facility] ([facility]) [address] [place] [address] VIR COMPLEMENT C4 42 mg/dL Normal 16-47 [facility] Comment on above: Performed By: #### P TT #### [facility] ([facility]) [address] [place] [address] VIR COMPREHENSIVE METABOLIC PANE Antoni 09-19-2024 Albumin [Mass/Vol] 3.4 g/dL Normal 3.2-5.3 [facility] Comment on above: Performed By: #### C MP #### [facility] ([facility]) [address] [place] [address] VIR ALP [Catalytic activity/Vol] 73 U/L Normal 39-130 [facility] Comment on above: Performed By: #### C MP #### [facility] ([facility]) [address] [place] [address] VIR ALT [Catalytic activity/Vol] 4 U/L Normal <=31 [facility] Comment on above: Performed By: #### C MP #### [facility] ([facility]) [address] [place] [address] VIR Anion gap [Moles/Vol] 17 mmol/L High 5-15 [facility] Comment on above: Performed By: #### C MP #### [facility] ([facility]) [address] [place] [address] VIR AST [Catalytic activity/Vol] 8 U/L Normal <=41 [facility] Comment on above: Performed By: #### C MP #### [facility] ([facility]) [address] [place] [address] VIR Bilirubin [Mass/Vol] 0.4 mg/dL Normal 0.3-1.2 [facility] Comment on above: Performed By: #### C MP #### [facility] ([facility]) [address] [place] [address] VIR Calcium [Mass/Vol] 9.3 mg/dL Normal 8.5-10.5 [facility] Comment on above: Performed By: #### C MP #### [facility] ([facility]) [address] [place] [address] VIR Chloride [Moles/Vol] 120 mmol/L High 98-109 [facility] Comment on above: Performed By: #### C MP #### [facility] ([facility]) [address] [place] [address] VIR CO2 [Moles/Vol] 14 mmol/L Low 22-32 [facility] Comment on above: Performed By: #### C MP #### [facility] ([facility]) [address] [place] [address] VIR Creatinine [Mass/Vol] 9.65 mg/dL High 0.40-1.00 [facility] Comment on above: Result Comment: METH OD TRACEABLE TO IDMS STANDARD Performed By: #### C MP #### [facility] ([facility]) [address] [place] [address] VIR GFR/1.73 sq M.predicted among non-blacks MDRD (S/P/Bld) [Vol rate/Area] 4 mL/min/{1.73_m2} Low >=60 [facility] Comment on above: Result Comment: Repo rted eGFR is based on the CKD-EPI 2020 equation that does not use a race coefficient. Performed By: #### C MP #### [facility] ([facility]) [address] [place] [address] VIR Glucose [Mass/Vol] 103 mg/dL High 65-99 [facility] Comment on above: Performed By: #### C MP #### [facility] ([facility]) [address] [place] [address] VIR Potassium [Moles/Vol] 4.6 mmol/L Normal 3.5-5.0 [facility] Comment on above: Performed By: #### C MP #### [facility] ([facility]) [address] [place] [address] VIR Protein [Mass/Vol] 6.8 g/dL Normal 6.0-8.0 [facility] Comment on above: Performed By: #### C MP #### [facility] ([facility]) [address] [place] [address] VIR Sodium [Moles/Vol] 151 mmol/L High 134-146 [facility] Comment on above: Performed By: #### C MP #### [facility] ([facility]) [address] [place] [address] VIR Urea nitrogen [Mass/Vol] 91 mg/dL High 5-23 [facility] Comment on above: Performed By: #### C MP #### [facility] ([facility]) [address] [place] [address] VIR Complement profile (C3 AND C 4)on 09-19-2024 Complement C3 [Mass/Vol] 196 mg/dL High 86 - 184 mg/dL [facility] Complement C4 [Mass/Vol] 42 mg/dL 16 - 47 mg/dL [facility] Comprehensive metabolic pane antoni 09-19-2024 Albumin [Mass/Vol] 3.4 g/dL 3.2 - 5.3 g/dL [facility] ALP [Catalytic activity/Vol] 73 U/L 39 - 130 U/L [facility] ALT No additional P-5'-P [Catalytic activity/Vol] 4 U/L NINF - 31 U/L [facility] Anion gap [Moles/Vol] 17 mmol/L High 5 - 15 mmol/L [facility] AST [Catalytic activity/Vol] 8 U/L NINF - 41 U/L [facility] Bilirubin [Mass/Vol] 0.4 mg/dL 0.3 - 1 .2 mg/dL [facility] Calcium [Mass/Vol] 9.3 mg/dL 8.5 - 10. 5 mg/dL [facility] Chloride [Moles/Vol] 120 mmol/L High 98 - 10 9 mmol/L [facility] CO2 [Moles/Vol] 14 mmol/L Low 22 - 32 mmol/L [facility] Creatinine [Mass/Vol] 9.65 mg/dL High 0.40 - 1.00 mg/dL [facility] EGFR Non-Race Dependent 4 Low - PINF [facility] Glucose [Mass/Vol] 103 mg/dL High 65 - 99 mg/dL [facility] Interpretation and review of laboratory results Abnormal [facility] Potassium [Moles/Vol] 4.6 mmol/L 3.5 - 5.0 mmol/L [facility] Protein [Mass/Vol] 6.8 g/dL 6.0 - 8.0 g/dL [facility] Sodium [Moles/Vol] 151 mmol/L High 134 - 146 mmol/L [facility] Urea nitrogen [Mass/Vol] 91 mg/dL High 5 - 23 mg/dL [facility] ECG 12 leadOrdered By: Charley Cohen on 09-19-2024 [facility] ELECTROLYTE PANELon 09-20-19 25 Anion gap [Moles/Vol] 11 mmol/L Normal 5-15 [facility] Comment on above: Performed By: #### N UM #### [facility] ([facility]) [address] [place] [address] VIR Chloride [Moles/Vol] 119 mmol/L High 98-109 [facility] Comment on above: Performed By: #### N UM #### [facility] ([facility]) [address] [place] [address] VIR CO2 [Moles/Vol] 24 mmol/L Normal 22-32 [facility] Comment on above: Performed By: #### N UM #### [facility] ([facility]) [address] [place] [address] VIR Potassium [Moles/Vol] 4.3 mmol/L Normal 3.5-5.0 [facility] Comment on above: Performed By: #### N UM #### [facility] ([facility]) [address] [place] [address] VIR Sodium [Moles/Vol] 154 mmol/L High 134-146 [facility] Comment on above: Performed By: #### N UM #### [facility] ([facility]) [address] [place] [address] VIR Anion gap [Moles/Vol] 13 mmol/L Normal 5-15 [facility] Comment on above: Performed By: #### N UM #### [facility] ([facility]) [address] [place] [address] VIR Chloride [Moles/Vol] 118 mmol/L High 98-109 [facility] Comment on above: Performed By: #### N UM #### [facility] ([facility]) [address] [place] [address] VIR CO2 [Moles/Vol] 21 mmol/L Low 22-32 [facility] Comment on above: Performed By: #### N UM #### [facility] ([facility]) [address] [place] [address] VIR Potassium [Moles/Vol] 4.5 mmol/L Normal 3.5-5.0 [facility] Comment on above: Performed By: #### N UM #### [facility] ([facility]) [address] [place] [address] VIR Sodium [Moles/Vol] 152 mmol/L High 134-146 [facility] Comment on above: Performed By: #### N UM #### [facility] ([facility]) [address] [place] [address] VIR Anion gap [Moles/Vol] 15 mmol/L Normal 5-15 [facility] Comment on above: Performed By: #### P INR #### [facility] ([facility]) [address] [place] [address] VIR Chloride [Moles/Vol] 119 mmol/L High 98-109 [facility] Comment on above: Performed By: #### P INR #### [facility] ([facility]) [address] [place] [address] VIR CO2 [Moles/Vol] 22 mmol/L Normal 22-32 [facility] Comment on above: Performed By: #### P INR #### [facility] ([facility]) [address] [place] [address] VIR Potassium [Moles/Vol] 4.3 mmol/L Normal 3.5-5.0 [facility] Comment on above: Performed By: #### P INR #### [facility] ([facility]) [address] [place] [address] VIR Sodium [Moles/Vol] 156 mmol/L High 134-146 [facility] Comment on above: Performed By: #### P INR #### [facility] ([facility]) [address] [place] [address] VIR Electrolyte panelon 09-20-19 25 Anion gap [Moles/Vol] 11 mmol/L 5 - 15 mmol/L [facility] Chloride [Moles/Vol] 119 mmol/L High 98 - 10 9 mmol/L [facility] CO2 [Moles/Vol] 24 mmol/L 22 - 32 mmol/L [facility] Interpretation and review of laboratory results Abnormal [facility] Potassium [Moles/Vol] 4.3 mmol/L 3.5 - 5.0 mmol/L [facility] Sodium [Moles/Vol] 154 mmol/L High 134 - 146 mmol/L [facility] Anion gap [Moles/Vol] 13 mmol/L 5 - 15 mmol/L [facility] Chloride [Moles/Vol] 118 mmol/L High 98 - 10 9 mmol/L [facility] CO2 [Moles/Vol] 21 mmol/L Low 22 - 32 mmol/L [facility] Interpretation and review of laboratory results Abnormal [facility] Potassium [Moles/Vol] 4.5 mmol/L 3.5 - 5.0 mmol/L [facility] Sodium [Moles/Vol] 152 mmol/L High 134 - 146 mmol/L [facility] Anion gap [Moles/Vol] 15 mmol/L 5 - 15 mmol/L [facility] Chloride [Moles/Vol] 119 mmol/L High 98 - 10 9 mmol/L [facility] CO2 [Moles/Vol] 22 mmol/L 22 - 32 mmol/L [facility] Interpretation and review of laboratory results Abnormal [facility] Potassium [Moles/Vol] 4.3 mmol/L 3.5 - 5.0 mmol/L [facility] Sodium [Moles/Vol] 156 mmol/L High 134 - 146 mmol/L [facility] Extra Urineon 09-19-2024 Extra Tube Auto Resulted [facility] FERRITINon 09-19-2024 Ferritin [Mass/Vol] 130 ng/mL Normal 11-307 [facility] Comment on above: Performed By: #### P TT #### [facility] ([facility]) [address] [place] [address] VIR FOLATEon 09-19-2024 FOLIC ACID 13.1 ng/mL Normal >5.8 [facility] Comment on above: Performed By: #### P TT #### [facility] ([facility]) [address] [place] [address] VIR Ferritinon 09-19-2024 Ferritin [Mass/Vol] 130 ng/mL 11 - 307 ng/mL [facility] Interpretation and review of laboratory results Normal [facility] Folateon 09-19-2024 Folate [Mass/Vol] 13.1 ng/mL 5.8 - PINF ng/mL [facility] Interpretation and review of laboratory results Normal [facility] GLOMERULAR BASEMENT MEMBRANE IGG ABon 09-19-2024 GBM IGG AB <^0.2 Normal <1.0 [facility] Comment on above: Performed By: #### L ACTS #### [facility] ([facility]) [address] [place] [address] VIR Gas panel (BldA)on Arterial patency Wrist artery --pre arterial puncture Pass [facility] Base deficit (Bld) [Moles/Vol] -8 mmol/L Low 0.0 - 2.0 mmol/L [facility] CO2 (Bld) [Partial pressure] 29.4 mm[Hg] Low [facility] HCO3 (Bld) [Moles/Vol] 16.8 mmol/L Low 22.0 - 26.0 mmol/L [facility] Interpretation and review of laboratory results Abnormal [facility] Oxygen (Bld) [Partial pressure] 78 mm[Hg] Low [facility] Oxygen therapy source and amount [CARE] Room Air [facility] pH (Bld) 7.364 [pH] 7.350 - 7.450 [facility] Specimen site Narrative [facility] Specimen type Nom (Spec) ARTERIAL [facility] HEMOGLOBIN A1Con 09-19-2024 Glucose [Mass/Vol] 108 mg/dL Normal [facility] Comment on above: Performed By: #### P INR #### [facility] ([facility]) [address] [place] [address] VIR HbA1c (Bld) [Mass fraction] 5.4 % Normal 4.4-5.6 [facility] Comment on above: Result Comment: ADA Guidelines Result HgbA1c Normal : less than 5.7 % Prediabetes : 5.7 % to 6.4 % Diabetes : > 6.4 % Use with caution in patients with abnormal hemoglobin variants as the half-life of red blood cells and in vivo glycation rates are affected. Performed By: #### P INR #### [facility] ([facility]) [address] [place] [address] VIR Hemoglobin A1con 09-19-2024 Average glucose Estimated from glycated hemoglobin (Bld) [Mass/Vol] 108 mg/dL [facility] HbA1c (Bld) [Mass fraction] 5.4 % 4.4 - 5.6 % [facility] IRON AND TIBCon 09-19-2024 Iron [Mass/Vol] 56 ug/dL Normal 50-170 [facility] Comment on above: Performed By: #### P TT #### [facility] ([facility]) [address] [place] [address] VIR IRON BINDING 309 ug/dL Normal 250-425 [facility] Comment on above: Performed By: #### P TT #### [facility] ([facility]) [address] [place] [address] VIR IRON SATURATION 18 % SATURATION Normal 15-50 [facility] Comment on above: Performed By: #### P TT #### [facility] ([facility]) [address] [place] [address] VIR Transferrin [Mass/Vol] 221 mg/dL Normal 168-336 [facility] Comment on above: Performed By: #### P TT #### [facility] ([facility]) [address] [place] [address] VIR Iron and TIBCon 09-19-2024 Interpretation and review of laboratory results Normal [facility] Iron [Mass/Vol] 56 ug/dL 50 - 170 ug/dL [facility] Iron binding capacity [Mass/Vol] 309 ug/dL 250 - 425 ug/dL [facility] Iron saturation [Mass fraction] 18 [facility] Transferrin [Mass or moles/Vol] 221 mg/dL 168 - 336 mg/dL [facility] LACTATE W/ REFLEXon 09-20-19 25 LACTATE W/REFLEX 0.7 mmol/L Normal 0.4-2.0 [facility] Comment on above: Order Comment: Resul t did not trigger repeat Lactate, re-order if needed. Performed By: #### L ACTS #### [facility] ([facility]) [address] [place] [address] VIR Laboratory - Chemistry and C hemistry - challengeon 09-19-2024 Creatinine (U) [Mass/Vol] 83.54 mg/dL [facility] Lactate w/ Reflexon 09-20-19 25 Interpretation and review of laboratory results Normal [facility] Lactate (P nadine) [Moles/Vol] 0.7 mmol/L 0.4 - 2.0 mmol/L [facility] MAGNESIUMon 09-19-2024 Magnesium [Mass/Vol] 2.4 mg/dL Normal 1.8-2.6 [facility] Comment on above: Performed By: #### P INR #### [facility] ([facility]) [address] [place] [address] VIR MYELOPEROXIDASE ABon 025 MYELOPEROXIDASE AB <^0.2 Normal <1.0 [facility] Comment on above: Performed By: #### L ACTS #### [facility] ([facility]) [address] [place] [address] VIR MYOGLOBIN, SERUMon SERUM MYOGLOBIN 33.4 ng/mL Normal 14.3-65.8 [facility] Comment on above: Performed By: #### P INR #### [facility] ([facility]) [address] [place] [address] VIR Magnesiumon 09-19-2024 Magnesium [Mass/Vol] 2.4 mg/dL 1.8 - 2 .6 mg/dL [facility] Myoglobin, serumon Interpretation and review of laboratory results Normal [facility] Myoglobin [Mass/Vol] 33.4 ng/mL 14.3 - 65.8 ng/mL [facility] No Panel Informationon 09-19 Interpretation and review of laboratory results Normal [facility] Interpretation and review of laboratory results Abnormal [facility] PHOSPHORUSon 09-19-2024 Phosphate [Mass/Vol] 5.8 mg/dL High 2.4-4.9 [facility] Comment on above: Performed By: #### P INR #### [facility] ([facility]) [address] [place] [address] VIR POCT NURSING URINE MACROSCOP IC UAon 09-19-2024 BILIRUBIN SORIN Negative Normal Negative [facility] Comment on above: Performed By: #### N UM #### [facility] ([facility]) [address] [place] [address] VIR BLOOD/HGB SORIN Large Abnormal Negative [facility] Comment on above: Performed By: #### N UM #### [facility] ([facility]) [address] [place] [address] VIR GLUCOSE SORIN Negative Normal Negative [facility] Comment on above: Performed By: #### N UM #### [facility] ([facility]) [address] [place] [address] VIR KETONES SORIN Negative Normal Negative [facility] Comment on above: Performed By: #### N UM #### [facility] ([facility]) [address] [place] [address] VIR LEUKOCYTE ESTERASE SORIN Negative Normal Negative [facility] Comment on above: Performed By: #### N UM #### [facility] ([facility]) [address] [place] [address] VIR NITRITE SORIN Negative Normal Negative [facility] Comment on above: Performed By: #### N UM #### [facility] ([facility]) [address] [place] [address] VIR PH SORIN 5.5 Normal 5.0, 6.0, 6.5, 7.0, 7.5, 8.0, 8.5, 5.5 [facility] Comment on above: Performed By: #### N UM #### [facility] ([facility]) [address] [place] [address] VIR PROTEIN SORIN 100 mg/dL Abnormal Negative [facility] Comment on above: Performed By: #### N UM #### [facility] ([facility]) [address] [place] [address] VIR SPECIFIC GRAVITY SORIN 1.020 Normal 1.010, 1.015, 1.020, 1.025 [facility] Comment on above: Performed By: #### N UM #### [facility] ([facility]) [address] [place] [address] VIR UROBILINOGEN SORIN 0.2 E.U./dL Normal 0.2 E.U./dL, 1.0 E.U./dL [facility] Comment on above: Performed By: #### N UM #### [facility] ([facility]) [address] [place] [address] VIR POCT Nursing Urine Macroscop ic UAon 09-19-2024 Bilirubin Ql (U) Negative Negative [facility] Glucose [Mass/Vol] Negative Negative [facility] Hemoglobin Ql (U) Large Abnormal Negative [facility] Interpretation and review of laboratory results Abnormal [facility] Ketones (U) [Mass/Vol] Negative Negative [facility] Leukocyte esterase Test strip Ql (U) Negative Negative [facility] Nitrite Ql (U) Negative Negative [facility] pH (U) 5.5 [pH] 5.0, 6.0, 6.5, 7.0, 7.5, 8.0, 8.5, 5.5 [facility] Protein Ql (U) 100 mg/dL Abnormal Negative [facility] Specific gravity (U) [Rel density] 1.020 1.010, 1.015, 1.020, 1.025 [facility] Urobilinogen Qn (U) [id number] {Mirza'U}/dL 0.2 E.U./dL, 1.0 E.U./dL [facility] PROCALCITONINon 09-19-2024 PROCALCITONIN 0.12 ng/mL High <0.05 [facility] Comment on above: Order Comment: <0.50 ng/mL - Low risk of severe sepsis and/or septic shock.<2.00 ng/mL - Recommend retesting within 6-24 hours.>2.00 ng/mL - High risk of sepsis and/or septic shock. Performed By: #### P TT #### [facility] ([facility]) [address] [place] [address] VIR PROTEIN CREAT RATIOon 2024 U/PRO/BACK FACER RATIO CALC 1.62 High <=0.20 [facility] Comment on above: Order Comment: Nephr otic Syndrome is associated with ratios >3.5 Performed By: #### P INR #### [facility] ([facility]) [address] [place] [address] VIR URINE PROTEIN, RANDOM (MG/L) 1350 mg/L High <120 [facility] Comment on above: Order Comment: Nephr otic Syndrome is associated with ratios >3.5 Performed By: #### P INR #### [facility] ([facility]) [address] [place] [address] VIR PROTEINASE 3 AB PR3on 2024 PROTEINASE 3 IGG AB <^0.2 Normal <1.0 [facility] Comment on above: Performed By: #### L ACTS #### [facility] ([facility]) [address] [place] [address] VIR PROTIME AND INRon 09-19-2024 INR 1.2 Normal 0.9-1.2 [facility] Comment on above: Performed By: #### P INR #### [facility] ([facility]) [address] [place] [address] VIR PT Coag (PPP) [Time] 14.0 s High 9.8-13.2 [facility] Comment on above: Performed By: #### P INR #### [facility] ([facility]) [address] [place] [address] VIR Phosphoruson 09-19-2024 Phosphate [Mass/Vol] 5.8 mg/dL High 2.4 - 4 .9 mg/dL [facility] Procalcitoninon 09-19-2024 Procalcitonin IA [Mass/Vol] 0.12 ng/mL High NINF - 0.05 ng/mL [facility] Protein creat ratioon 2024 Interpretation and review of laboratory results Abnormal [facility] Protein (U) [Mass/Vol] 1350 mg/L High NINF - 120 mg/L [facility] Protein/Creatinine (U) [Ratio] 1.62 High NINF - 0.20 [facility] Protime & INRon 09-19-2024 INR Coag (Platelet poor plasma or blood) [Relative time] 1.2 0.9 - 1.2 [facility] Interpretation and review of laboratory results Abnormal [facility] PT Coag (PPP) [Time] [address] [facility] SODIUM, URINE, RANDOMon Sodium (U) [Moles/Vol] 69 mmol/L Normal [facility] Comment on above: Performed By: #### U LUDMILA #### [facility] ([facility]) [address] [place] [address] VIR Sodium, urine, randomon Sodium (U) [Moles/Vol] 69 mmol/L [facility] THYROID PROFILE INCLUDES TSH [id number] Free T4 [Mass/Vol] 0.86 ng/dL Normal 0.61-1.60 [facility] Comment on above: Performed By: #### P TT #### [facility] ([facility]) [address] [place] [address] VIR TSH 2.80 uIU/mL Normal 0.49-4.67 [facility] Comment on above: Performed By: #### P TT #### [facility] ([facility]) [address] [place] [address] VIR TROP I, HIGH SENSITIVITY 1 H OUR09-19-2024 TROPONIN I, HIGH SENSITIVITY 10 ng/L Normal <16 [facility] Comment on above: Performed By: #### T NIHS1 #### [facility] ([facility]) [address] [place] [address] VIR TROPONIN I, HIGH SENSITIVITY 0 HOURon 09-19-2024 TROPONIN I, HIGH SENSITIVITY 11 ng/L Normal <16 [facility] Comment on above: Performed By: #### P INR #### [facility] ([facility]) [address] [place] [address] VIR Thyroid profile includes TSH [id number] Free T4 [Mass/Vol] 0.86 ng/dL 0.61 - 1.60 ng/dL [facility] TSH Qn 2.8 m[IU]/L [facility] Troponin I, High Sensitivity 0 Houron 09-19-2024 Interpretation and review of laboratory results Normal [facility] Troponin I.cardiac High sensitivity method [Mass/Vol] 11 ng/L NINF - 16 ng/L [facility] Troponin I, High Sensitivity 1 Houron 09-19-2024 Interpretation and review of laboratory results Normal [facility] Troponin I.cardiac High sensitivity method [Mass/Vol] 10 ng/L NINF - 16 ng/L [facility] URINALYSISon 09-19-2024 Bilirubin Ql (U) Negative Normal Negative [facility] Comment on above: Order Comment: Urine received without preservative. Delays in transport may affect results. Interpret with caution. A clinical correlation is recommended. Performed By: #### P TT #### [facility] ([facility]) [address] [place] [address] VIR BLOOD/HGB Moderate Abnormal Negative [facility] Comment on above: Order Comment: Urine received without preservative. Delays in transport may affect results. Interpret with caution. A clinical correlation is recommended. Performed By: #### P TT #### [facility] ([facility]) [address] [place] [address] VIR Color (U) Colorless Normal Yellow, Colorless [facility] Comment on above: Order Comment: Urine received without preservative. Delays in transport may affect results. Interpret with caution. A clinical correlation is recommended. Performed By: #### P TT #### [facility] ([facility]) [address] [place] [address] VIR Glucose Ql (U) Negative Normal Negative [facility] Comment on above: Order Comment: Urine received without preservative. Delays in transport may affect results. Interpret with caution. A clinical correlation is recommended. Performed By: #### P TT #### [facility] ([facility]) [address] [place] [address] VIR Ketones Ql (U) Negative Normal Negative [facility] Comment on above: Order Comment: Urine received without preservative. Delays in transport may affect results. Interpret with caution. A clinical correlation is recommended. Performed By: #### P TT #### [facility] ([facility]) [address] [place] [address] VIR Leukocyte esterase Test strip Ql (U) Small Abnormal Negative [facility] Comment on above: Order Comment: Urine received without preservative. Delays in transport may affect results. Interpret with caution. A clinical correlation is recommended. Performed By: #### P TT #### [facility] ([facility]) [address] [place] [address] VIR MUCOUS Present Abnormal None [facility] Comment on above: Order Comment: Urine received without preservative. Delays in transport may affect results. Interpret with caution. A clinical correlation is recommended. Performed By: #### P TT #### [facility] ([facility]) [address] [place] [address] VIR Nitrite Ql (U) Negative Normal Negative [facility] Comment on above: Order Comment: Urine received without preservative. Delays in transport may affect results. Interpret with caution. A clinical correlation is recommended. Performed By: #### P TT #### [facility] ([facility]) [address] [place] [address] VIR PH,URINE 5.5 Normal 5.0-8.5 [facility] Comment on above: Order Comment: Urine received without preservative. Delays in transport may affect results. Interpret with caution. A clinical correlation is recommended. Performed By: #### P TT #### [facility] ([facility]) [address] [place] [address] VIR Protein Ql (U) 70 mg/dL Abnormal Negative [facility] Comment on above: Order Comment: Urine received without preservative. Delays in transport may affect results. Interpret with caution. A clinical correlation is recommended. Performed By: #### P TT #### [facility] ([facility]) [address] [place] [address] VIR R.B.CELLS 17 High 0-5 [facility] Comment on above: Order Comment: Urine received without preservative. Delays in transport may affect results. Interpret with caution. A clinical correlation is recommended. Performed By: #### P TT #### [facility] ([facility]) [address] [place] [address] VIR Specific gravity (U) [Rel density] 1.013 Normal 1.003-1.03 5 [facility] Comment on above: Order Comment: Urine received without preservative. Delays in transport may affect results. Interpret with caution. A clinical correlation is recommended. Performed By: #### P TT #### [facility] ([facility]) [address] [place] [address] VIR SQUAMOUS EPITHELIUM 1 Normal 0-5 [facility] Comment on above: Order Comment: Urine received without preservative. Delays in transport may affect results. Interpret with caution. A clinical correlation is recommended. Performed By: #### P TT #### [facility] ([facility]) [address] [place] [address] VIR TURBIDITY Hazy Abnormal Clear [facility] Comment on above: Order Comment: Urine received without preservative. Delays in transport may affect results. Interpret with caution. A clinical correlation is recommended. Performed By: #### P TT #### [facility] ([facility]) [address] [place] [address] VIR UROBILINOGEN <1.1 eu/dL Normal <1.1 eu/dL [facility] Comment on above: Order Comment: Urine received without preservative. Delays in transport may affect results. Interpret with caution. A clinical correlation is recommended. Performed By: #### P TT #### [facility] ([facility]) [address] [place] [address] VIR W.B.CELLS 39 High 0-5 [facility] Comment on above: Order Comment: Urine received without preservative. Delays in transport may affect results. Interpret with caution. A clinical correlation is recommended. Performed By: #### P TT #### [facility] ([facility]) [address] [place] [address] VIR URINE CREATININE,RANDOMon URINE CREATININE,RDM 83.54 mg/dL Normal [facility] Comment on above: Performed By: #### P INR #### [facility] ([facility]) [address] [place] [address] VIR Order Comment: Nephr otic Syndrome is [...] Varner MD on 09/19/2024 6:46 AM Normal [facility] US Retroperitoneumon 025 SECTRAPACS [facility] Radiology Study observation (narrative) [facility] US RetroperitoneumOrdered By : Mao Varner on 09-19-2024 [facility] Work Phone: UrinalysisOrdered By: Aayush Ewing on 09-19-2024 Bilirubin Ql (U) Negative Negative [facility] Color (U) Colorless Yellow, Colorless [facility] Epithelial cells Auto (Urine sed) [#/Area] 1 0 - 5 [facility] Glucose (U) [Mass/Vol] Negative Negative Pr [facility] Hemoglobin Auto test strip Ql (U) Moderate Abnormal Negative [facility] Interpretation and review of laboratory results Abnormal [facility] Ketones (U) [Mass/Vol] Negative Negative Pr [facility] Leukocyte esterase Auto test strip Ql (U) Small Abnormal Negative [facility] Mucus Ql (Urine sed) Present Abnormal None [facility] Nitrite Auto test strip Ql (U) Negative Negative [facility] pH (U) 5.5 [pH] 5.0 - 8.5 [facility] Protein (U) [Mass/Vol] 70 mg/dL Abnormal Negative Pr [facility] RBC Auto (Urine sed) [#/Area] 17 High 0 - 5 [facility] Specific gravity Refractometry automated (U) [Rel density] 1.013 1.003 - 1.035 [facility] Turbidity Ql (U) Hazy Abnormal Clear [facility] Urobilinogen Qn (U) {Mirza'U}/dL <1.1 eu/dL P [facility] WBC Auto (Urine sed) [#/Area] 39 High 0 - 5 [facility] VITAMIN B12on 09-19-2024 Cobalamin (Vitamin B12) [Mass/Vol] 517 pg/mL Normal 180-914 [facility] Comment on above: Performed By: #### P TT #### [facility] ([facility]) [address] [place] [address] VIR Vitamin B12on 09-19-2024 Cobalamin (Vitamin B12) [Mass/Vol] 517 pg/mL 180 - 914 pg/mL [facility] Interpretation and review of laboratory results Normal [facility] ALL CBC WITH AUTO DIFFon BASOPHILS ABSOLUTE AUTO 0.1 N [facility] Basophils/100 WBC (Bld) 0.7 % 0.2 - 2.0 % [facility] Eosinophils/100 WBC (Bld) 2.3 % 0.9 - 7.0 % [facility] Erythrocyte distribution width (RBC) [Ratio] 14.9 % 11.0 - 15.0 % [facility] Hematocrit (Bld) [Volume fraction] 37.9 % 36.0 - 48.0 % [facility] Hemoglobin (Bld) [Mass/Vol] 11.7 g/dL Low 12.0 - 16.0 g/dL [facility] IMMATURE GRANULOCYTES ABS AUTO 0.05 High [facility] Immature granulocytes/100 WBC (Bld) 0.4 % 0.0 - 0.5 % [facility] Interpretation and review of laboratory results Abnormal [facility] LYMPHOCYTES ABSOLUTE AUTO 0.8 Low [facility] Lymphocytes/100 WBC (Bld) 6.3 % Low 20.5 - 60.0 % [facility] MCH (RBC) [Entitic mass] 27.1 pg 26. 7 - 34.0 pg [facility] MCHC (RBC) [Mass/Vol] 30.9 g/dL 29.9 - 35.2 g/dL [facility] MCV (RBC) [Entitic vol] 87.7 fL 81.0 - 99.0 fL [facility] MONOCYTES ABSOLUTE AUTO 1 High N [facility] Monocytes/100 WBC (Bld) 7.5 % 1.7 - 12.0 % [facility] NEUTROPHILS ABSOLUTE AUTO 10.7 High [facility] Neutrophils/100 WBC (Bld) 82.8 % High 43.0 - 75.0 % [facility] Platelet mean volume (Bld) [Entitic vol] 11.5 fL 9.5 - 13.5 fL [facility] EO # 0.3 [facility] PLT [facility] RBC 4.32 [facility] WBC 12.9 High [facility] CBC AND AUTO DIFFon 09-02-19 25 ABSOLUTE BASOPHIL 0.1 X10E9/L Normal 0.0-0.2 [facility] Comment on above: Performed By: #### C BCA, CMP, 2156-6, 38278-7, 71880-8, 77437-5, PINR, 21318-7, 2639-3 #### [facility] ([id number]) [address] [place] [address] 59017 ABSOLUTE NEUTROPHIL 7.5 X10E9/L High 1.5-6.6 [facility] Comment on above: Performed By: #### C BCA, CMP, 2156-, 42354-1, 22063-5, 69782-6, PINR, 34280-8, 2639-3 #### [facility] ([id number]) [address] [place] [address] 23449 Basophils/100 WBC (Bld) 0.7 % Normal [facility] Comment on above: Performed By: #### C BCA, CMP, 2156-10, 82582-9, 72829-7, 04220-9, PINR, 94307-5, 2639-3 #### [facility] ([id number]) [address] [place] [address] 86405 Eosinophils (Bld) [#/Vol] 0.1 10*3/uL Normal 0.0-0.4 [facility] Comment on above: Performed By: #### C BCA, CMP, 2156-, 46654-4, 32925-5, 50243-4, PINR, 44299-1, 2639-3 #### [facility] ([id number]) [address] [place] [address] 38385 Eosinophils/100 WBC (Bld) 1.3 % Normal [facility] Comment on above: Performed By: #### C BCA, CMP, 2156-6, 43478-1, 67536-3, 08633-0, PINR, 50688-9, 2639-3 #### [facility] ([id number]) [address] [place] [address] 27964 Erythrocyte distribution width (RBC) [Ratio] 15.4 % High 11.5-15.0 [facility] Comment on above: Performed By: #### C BCA, CMP, 2156-6, 99246-4, 81066-6, 47721-5, PINR, 77806-4, 2639-3 #### [facility] ([id number]) [address] [place] [address] 39240 Hematocrit (Bld) [Volume fraction] 36.0 % Normal 35-47 [facility] Comment on above: Performed By: #### C BCA, CMP, 2156-, 33257-0, 93780-9, 93240-7, PINR, 68674-1, 2639-3 #### [facility] ([id number]) [address] [place] [address] 61647 Hemoglobin (Bld) [Mass/Vol] 12.2 g/dL Normal 11.7-15.5 [facility] Comment on above: Performed By: #### C BCA, CMP, 2156-, 61060-4, 42830-2, 10057-9, PINR, 12048-8, 2639-3 #### [facility] ([id number]) [address] [place] [address] 41965 Lymphocytes (Bld) [#/Vol] 0.9 10*3/uL Low 1.0-3.5 [facility] Comment on above: Performed By: #### C BCA, CMP, 2156-6, 56883-9, 46471-5, 63546-3, PINR, 79984-2, 2639-3 #### [facility] ([id number]) [address] [place] [address] 25210 Lymphocytes/100 WBC (Bld) 9.4 % Normal [facility] Comment on above: Performed By: #### C BCA, CMP, 2156-6, 00658-2, 19176-8, 56606-7, PINR, 89135-1, 2639-3 #### [facility] ([id number]) [address] [place] [address] 04007 MCH (RBC) [Entitic mass] 28.0 pg Normal 27-34 [facility] Comment on above: Performed By: #### C BCA, CMP, 7-6, 41402-3, 80019-5, 42260-5, PINR, 05802-7, 2639-3 #### [facility] ([id number]) [address] [place] [address] 55200 MCHC (RBC) [Mass/Vol] 34.0 g/dL Normal 32-36 [facility] Comment on above: Performed By: #### C BCA, CMP, 7-6, 83236-2, 49838-8, 41462-6, PINR, 77224-8, 2639-3 #### [facility] ([id number]) [address] [place] [address] 84939 MCV (RBC) [Entitic vol] 82 fL Normal 80-100 [facility] Comment on above: Performed By: #### C BCA, CMP, 7-6, 71881-3, 25854-3, 37735-8, PINR, 42578-3, 2639-3 #### [facility] ([id number]) [address] [place] [address] 69402 Monocytes (Bld) [#/Vol] 1.4 10*3/uL High 0-0.9 [facility] Comment on above: Performed By: #### C BCA, CMP, 7-6, 22699-4, 96732-7, 57753-3, PINR, 98291-7, 2639-3 #### [facility] ([id number]) [address] [place] [address] 02830 Monocytes/100 WBC (Bld) 13.8 % Normal P [facility] Comment on above: Performed By: #### C BCA, CMP, 2156-6, 33605-6, 86455-3, 91451-1, PINR, 62011-5, 2639-3 #### [facility] ([id number]) [address] [place] [address] 63669 Neutrophils/100 WBC (Bld) 74.8 % Normal [facility] Comment on above: Performed By: #### C BCA, CMP, 2156-6, 05635-9, 32955-3, 31686-9, PINR, 18152-7, 2639-3 #### [facility] ([id number]) [address] [place] [address] 13718 Platelet mean volume (Bld) [Entitic vol] 9.4 fL Normal 7-12 [facility] Comment on above: Performed By: #### C BCA, CMP, 2156-6, 44629-2, 76504-5, 09033-1, PINR, 66646-0, 2639-3 #### [facility] ([id number]) [address] [place] [address] 63986 Platelets (Bld) [#/Vol] 215 10*3/uL Normal 150-450 [facility] Comment on above: Performed By: #### C BCA, CMP, 2156-6, 44091-7, 33205-1, 66412-9, PINR, 68247-2, 2639-3 #### [facility] ([id number]) [address] [place] [address] 34288 RBC COUNT 4.36 X10E12/L Normal 3.80-5.20 [facility] Comment on above: Performed By: #### C BCA, CMP, 2156-6, 51755-8, 20768-5, 67171-9, PINR, 22697-8, 2639-3 #### [facility] ([id number]) [address] [place] [address] 15490 WBC (Bld) [#/Vol] 10.1 10*3/uL Normal 4.0-11.0 [facility] Comment on above: Performed By: #### C BCA, CMP, 2157-6, 70368-1, 94920-6, 46148-5, PINR, 01306-3, 2639-3 #### [facility] ([id number]) [address] [place] [address] 01419 CK [Catalytic activity/Vol]o n 09-01-2024 CPK 188 U/L High 24-170 [facility] Comment on above: Performed By: #### C BCA, CMP, 7-6, 97679-1, 97568-6, 32391-9, PINR, 17947-5, 2639-3 #### [facility] ([id number]) [address] [place] [address] 30579 COMPREHENSIVE METABOLIC PANE Antoni 09-01-2024 Albumin [Mass/Vol] 2.6 g/dL Low 3.2-5.3 [facility] Comment on above: Performed By: #### C BCA, CMP, 7-6, 67072-7, 50859-2, 36147-9, PINR, 00236-0, 2639-3 #### [facility] ([id number]) [address] [place] [address] 61573 ALP [Catalytic activity/Vol] 101 U/L Normal 39-130 [facility] Comment on above: Performed By: #### C BCA, CMP, 7-6, 31227-9, 13311-9, 93054-9, PINR, 24582-8, 2639-3 #### [facility] ([id number]) [address] [place] [address] 91640 ALT [Catalytic activity/Vol] 34 U/L High 0-31 [facility] Comment on above: Performed By: #### C BCA, CMP, 2156-6, 36085-5, 37777-4, 77328-8, PINR, 70996-2, 2639-3 #### [facility] ([id number]) [address] [place] [address] 24602 Anion gap [Moles/Vol] 11 mmol/L Normal 5-15 [facility] Comment on above: Performed By: #### C BCA, CMP, 2156-6, 05872-9, 74365-2, 30007-7, PINR, 30242-2, 2639-3 #### [facility] ([id number]) [address] [place] [address] 30514 AST [Catalytic activity/Vol] 32 U/L Normal 0-41 [facility] Comment on above: Performed By: #### C BCA, CMP, 2156-6, 20614-7, 57180-6, 76611-9, PINR, 46205-4, 2639-3 #### [facility] ([id number]) [address] [place] [address] 67241 Bilirubin [Mass/Vol] 0.5 mg/dL Normal 0.3-1.2 [facility] Comment on above: Performed By: #### C BCA, CMP, 2156-6, 04880-0, 76661-3, 51884-0, PINR, 35225-3, 2639-3 #### [facility] ([id number]) [address] [place] [address] 01193 Calcium [Mass/Vol] 8.5 mg/dL Normal 8.5-10.5 [facility] Comment on above: Performed By: #### C BCA, CMP, 2156-6, 09420-6, 47930-4, 82178-8, PINR, 63287-1, 2639-3 #### [facility] ([id number]) [address] [place] [address] Chloride [Moles/Vol] 106 mmol/L Normal 98-109 [facility] Comment on above: Performed By: #### C BCA, CMP, 2157-6, 85221-0, 84782-8, 28747-3, PINR, 79452-4, 2639-3 #### [facility] ([id number]) [address] [place] [address] 88416 CO2 [Moles/Vol] 24 mmol/L Normal 22-32 [facility] Comment on above: Performed By: #### C BCA, CMP, 7-6, 21844-3, 15654-6, 70118-3, PINR, 28553-8, 2639-3 #### [facility] ([id number]) [address] [place] [address] 83059 Creatinine [Mass/Vol] 0.87 mg/dL Normal 0.40-1.00 [facility] Comment on above: Result Comment: METH OD TRACEABLE TO IDMS STANDARD Performed By: #### C BCA, CMP, 2156-6, 84185-7, 23916-7, 96523-1, PINR, 53252-7, 2639-3 #### [facility] ([id number]) [address] [place] [address] 29682 GFR/1.73 sq M.predicted among non-blacks MDRD (S/P/Bld) [Vol rate/Area] 78 mL/min/{1.73_m2} Normal >59 [facility] Comment on above: Result Comment: Reported eGFR is based on the CKD-EPI 2020 equation that does not use a race coefficient. Performed By: #### C BCA, CMP, 2157-6, 12690-5, 16182-6, 16652-3, PINR, 43820-0, 2639-3 #### [facility] ([id number]) [address] [place] [address] 97691 Glucose [Mass/Vol] 108 mg/dL High 65-99 [facility] Comment on above: Performed By: #### C BCA, CMP, 7-6, 83148-8, 11980-3, 12723-6, PINR, 09075-7, 2639-3 #### [facility] ([id number]) [address] [place] [address] 15942 Potassium [Moles/Vol] 4.1 mmol/L Normal 3.5-5.0 [facility] Comment on above: Performed By: #### C BCA, CMP, 2156-6, 13662-5, 33444-0, 47413-1, PINR, 59965-5, 2639-3 #### [facility] ([id number]) [address] [place] [address] 01297 Protein [Mass/Vol] 6.6 g/dL Normal 6.0-8.0 [facility] Comment on above: Performed By: #### C BCA, CMP, 2156-6, 12739-0, 85852-5, 67644-4, PINR, 14204-8, 2639-3 #### [facility] ([id number]) [address] [place] [address], [place] [address] Sodium [Moles/Vol] 141 mmol/L Normal 134-146 [facility] Comment on above: Performed By: #### C BCA, CMP, 2156-6, 11908-4, 60599-2, 49378-0, PINR, 71390-5, 2639-3 #### [facility] ([id number]) [address] [place] [address] [place] [address] Urea nitrogen [Mass/Vol] 12 mg/dL Normal 5-23 [facility] Comment on above: Performed By: #### C BCA, CMP, 2156-6, 62866-7, 66627-4, 56891-8, PINR, 16477-2, 2639-3 #### [facility] ([id number]) [address] [place] [address] 51999 MAGNESIUMon 09-01-2024 Magnesium [Mass/Vol] 2.0 mg/dL Normal 1.8-2.6 [facility] Comment on above: Performed By: #### C BCA, CMP, 2156-6, 07801-0, 26988-6, 65741-3, PINR, 11659-3, 2639-3 #### [facility] ([id number]) [address] [place] [address] 50804 Myoglobin [Mass/Vol]on 09-01 SERUM MYOGLOBIN 53.7 ng/mL Normal 14.3-65.8 [facility] Comment on above: Performed By: #### C BCA, CMP, 2156-6, 03240-6, 87822-5, 92341-0, PINR, 41690-6, 2639-3 #### [facility] ([id number]) [address] [place] [address] 48499 CBC AND AUTO DIFFon 09-01-19 25 ABSOLUTE BASOPHIL 0.1 X10E9/L Normal 0.0-0.2 [facility] Comment on above: Performed By: #### C BCA, CMP, 2156-6, 51135-4, 51873-1, 26435-1, PINR, 42308-7, 2639-3 #### [facility] ([id number]) [address] [place] [address] 24704 ABSOLUTE NEUTROPHIL 7.4 X10E9/L High 1.5-6.6 [facility] Comment on above: Performed By: #### C BCA, CMP, 2156-, 45050-2, 33515-6, 26924-4, PINR, 43725-8, 2639-3 #### [facility] ([id number]) [address] [place] [address] 76103 Basophils/100 WBC (Bld) 0.9 % Normal [facility] Comment on above: Performed By: #### C BCA, CMP, 2156-6, 26689-6, 22553-8, 30933-4, PINR, 63859-0, 2639-3 #### [facility] ([id number]) [address] [place] [address] 35353 Eosinophils (Bld) [#/Vol] 0.1 10*3/uL Normal 0.0-0.4 [facility] Comment on above: Performed By: #### C BCA, CMP, 2156-6, 91532-5, 20503-1, 83808-7, PINR, 68600-5, 2639-3 #### [facility] ([id number]) [address] [place] [address] 23904 Eosinophils/100 WBC (Bld) 1.4 % Normal [facility] Comment on above: Performed By: #### C BCA, CMP, 2156-6, 96595-8, 53084-6, 95576-2, PINR, 81399-4, 2639-3 #### [facility] ([id number]) [address] [place] [address] [place] [address] Erythrocyte distribution width (RBC) [Ratio] 15.8 % High 11.5-15.0 [facility] Comment on above: Performed By: #### C BCA, CMP, 2156-6, 56821-6, 74636-9, 64569-3, PINR, 07722-4, 2639-3 #### [facility] ([id number]) [address] [place] [address] 03700 Hematocrit (Bld) [Volume fraction] 35.7 % Normal 35-47 [facility] Comment on above: Performed By: #### C BCA, CMP, 2156-6, 61827-1, 83984-0, 88861-5, PINR, 44415-3, 2639-3 #### [facility] ([id number]) [address] [place] [address] 61502 Hemoglobin (Bld) [Mass/Vol] 12.1 g/dL Normal 11.7-15.5 [facility] Comment on above: Performed By: #### C BCA, CMP, 2156-, 11534-5, 19253-9, 51083-9, PINR, 23836-9, 2639-3 #### [facility] ([id number]) [address] [place] [address] 78412 Lymphocytes (Bld) [#/Vol] 0.8 10*3/uL Low 1.0-3.5 [facility] Comment on above: Performed By: #### C BCA, CMP, 2156-10, 99309-9, 66278-9, 74076-7, PINR, 31670-7, 2639-3 #### [facility] ([id number]) [address] [place] [address] 31240 Lymphocytes/100 WBC (Bld) 8.5 % Normal [facility] Comment on above: Performed By: #### C BCA, CMP, 2156-10, 73926-6, 64022-6, 96360-5, PINR, 12709-5, 2639-3 #### [facility] ([id number]) [address] [place] [address] 01259 MCH (RBC) [Entitic mass] 28.1 pg Normal 27-34 [facility] Comment on above: Performed By: #### C BCA, CMP, 2156-6, 63443-8, 72061-4, 68816-0, PINR, 70741-8, 2639-3 #### [facility] ([id number]) [address] [place] [address] 20395 MCHC (RBC) [Mass/Vol] 33.9 g/dL Normal 32-36 [facility] Comment on above: Performed By: #### C BCA, CMP, 2156-6, 98002-6, 16668-2, 73921-6, PINR, 96002-6, 2639-3 #### [facility] ([id number]) [address] [place] [address] 39816 MCV (RBC) [Entitic vol] 83 fL Normal 80-100 [facility] Comment on above: Performed By: #### C BCA, CMP, 2156-6, 43340-3, 54607-3, 43234-4, PINR, 24653-4, 2639-3 #### [facility] ([id number]) [address] [place] [address] 14974 Monocytes (Bld) [#/Vol] 1.4 10*3/uL High 0-0.9 [facility] Comment on above: Performed By: #### C BCA, CMP, 2156-, 36137-2, 89669-5, 77850-5, PINR, 87965-8, 2639-3 #### [facility] ([id number]) [address] [place] [address] 06002 Monocytes/100 WBC (Bld) 14.1 % Normal [facility] Comment on above: Performed By: #### C BCA, CMP, 2156-6, 63551-1, 31518-6, 56068-2, PINR, 66380-1, 2639-3 #### [facility] ([id number]) [address] [place] [address] 27540 Neutrophils/100 WBC (Bld) 75.1 % Normal [facility] Comment on above: Performed By: #### C BCA, CMP, 2156-6, 61453-4, 52342-4, 21420-6, PINR, 31383-2, 2639-3 #### [facility] ([id number]) [address] [place] [address] 57531 Platelet mean volume (Bld) [Entitic vol] 10.0 fL Normal 7-12 [facility] Comment on above: Performed By: #### C BCA, CMP, 7-6, 80121-1, 88410-1, 29394-4, PINR, 11745-1, 2639-3 #### [facility] ([id number]) [address] [place] [address] 35862 Platelets (Bld) [#/Vol] 206 10*3/uL Normal 150-450 [facility] Comment on above: Performed By: #### C BCA, CMP, 7-6, 73395-2, 04430-0, 24859-6, PINR, 27545-6, 2639-3 #### [facility] ([id number]) [address] [place] [address] 67988 RBC COUNT 4.31 X10E12/L Normal 3.80-5.20 [facility] Comment on above: Performed By: #### C BCA, CMP, 2156-6, 43884-8, 50456-8, 79205-9, PINR, 52242-5, 2639-3 #### [facility] ([id number]) [address] [place] [address] 89147 WBC (Bld) [#/Vol] 9.9 10*3/uL Normal 4.0-11.0 [facility] Comment on above: Performed By: #### C BCA, CMP, 2156-6, 98431-0, 63839-0, 64197-5, PINR, 20950-2, 2639-3 #### [facility] ([id number]) [address] [place] [address] 46344 CK [Catalytic activity/Vol]o n 08-31-2024 CPK 324 U/L High 24-170 [facility] Comment on above: Performed By: #### C BCA, CMP, 7-6, 33403-4, 12509-9, 31951-5, PINR, 29822-3, 2639-3 #### [facility] ([id number]) [address] [place] [address] 64161 CPK 405 U/L High 24-170 [facility] Comment on above: Performed By: #### C BCA, CMP, 2157-6, 80758-1, 43124-0, 33195-2, PINR, 14141-7, 2639-3 #### [facility] ([id number]) [address] [place] [address] 03700 COMPREHENSIVE METABOLIC PANE Antoni 08-31-2024 Albumin [Mass/Vol] 2.5 g/dL Low 3.2-5.3 [facility] Comment on above: Performed By: #### C BCA, CMP, 2157-6, 59429-3, 06416-9, 18434-1, PINR, 30378-7, 2639-3 #### [facility] ([id number]) [address] [place] [address] 16082 ALP [Catalytic activity/Vol] 75 U/L Normal 39-130 [facility] Comment on above: Performed By: #### C BCA, CMP, 2157-6, 45546-3, 54077-9, 29580-3, PINR, 11065-7, 2639-3 #### [facility] ([id number]) [address] [place] [address] 43689 ALT [Catalytic activity/Vol] 31 U/L Normal 0-31 [facility] Comment on above: Performed By: #### C BCA, CMP, 2157-6, 98476-7, 77615-8, 67225-2, PINR, 53539-7, 2639-3 #### [facility] ([id number]) [address] [place] [address] [place] [address] Anion gap [Moles/Vol] 9 mmol/L Normal 5-15 [facility] Comment on above: Performed By: #### C BCA, CMP, 2156-6, 56930-3, 24837-6, 58622-8, PINR, 34895-2, 2639-3 #### [facility] ([id number]) [address] [place] [address] 81872 AST [Catalytic activity/Vol] 36 U/L Normal 0-41 [facility] Comment on above: Performed By: #### C BCA, CMP, 2156-, 31784-7, 11562-0, 94510-3, PINR, 80528-6, 2639-3 #### [facility] ([id number]) [address] [place] [address] 16495 Bilirubin [Mass/Vol] 0.5 mg/dL Normal 0.3-1.2 [facility] Comment on above: Performed By: #### C BCA, CMP, 2156-10, 33210-2, 28927-0, 48037-7, PINR, 94266-7, 2639-3 #### [facility] ([id number]) [address] [place] [address] 83490 Calcium [Mass/Vol] 8.2 mg/dL Low 8.5-10.5 [facility] Comment on above: Performed By: #### C BCA, CMP, 2156-, 94336-2, 89488-7, 69963-9, PINR, 73786-6, 2639-3 #### [facility] ([id number]) [address] [place] [address] 88913 Chloride [Moles/Vol] 107 mmol/L Normal 98-109 [facility] Comment on above: Performed By: #### C BCA, CMP, 2156-, 83973-1, 60188-8, 53181-6, PINR, 12413-6, 2639-3 #### [facility] ([id number]) [address] [place] [address] CO2 [Moles/Vol] 24 mmol/L Normal 22-32 [facility] Comment on above: Performed By: #### C BCA, CMP, 2156-, 48643-6, 20775-9, 62367-7, PINR, 24527-2, 2639-3 #### [facility] ([id number]) [address] [place] [address] 57606 Creatinine [Mass/Vol] 0.83 mg/dL Normal 0.40-1.00 [facility] Comment on above: Result Comment: METH OD TRACEABLE TO IDMS STANDARD Performed By: #### C BCA, CMP, 2156-10, , 25416-7, 97709-5, PINR, 38262-3, 2639-3 #### [facility] ([id number]) [address] [place] [address] 89646 GFR/1.73 sq M.predicted among non-blacks MDRD (S/P/Bld) [Vol rate/Area] 83 mL/min/{1.73_m2} Normal >59 [facility] Comment on above: Result Comment: Reported eGFR is based on the CKD-EPI 2020 equation that does not use a race coefficient. Performed By: #### C BCA, CMP, 2156-10, 12701-9, 92035-3, 96251-7, PINR, 03875-6, 2639-3 #### [facility] ([id number]) [address] [place] [address] [place] [address] Glucose [Mass/Vol] 101 mg/dL High 65-99 [facility] Comment on above: Performed By: #### C BCA, CMP, 2156-10, 76528-6, 24216-3, 91577-3, PINR, 93919-3, 2639-3 #### [facility] ([id number]) [address] [place] [address] 03818 Potassium [Moles/Vol] 3.7 mmol/L Normal 3.5-5.0 [facility] Comment on above: Performed By: #### C BCA, CMP, 7-6, 04153-0, 87415-8, 42980-8, PINR, 55733-3, 2639-3 #### [facility] ([id number]) [address] [place] [address] 86572 Protein [Mass/Vol] 6.3 g/dL Normal 6.0-8.0 [facility] Comment on above: Performed By: #### C BCA, CMP, 2156-6, 55020-2, 25916-3, 43879-5, PINR, 85424-0, 2639-3 #### [facility] ([id number]) [address] [place] [address] 71585 Sodium [Moles/Vol] 140 mmol/L Normal 134-146 [facility] Comment on above: Performed By: #### C BCA, CMP, 2156-6, 61873-7, 22434-5, 07177-0, PINR, 08612-0, 2639-3 #### [facility] ([id number]) [address] [place] [address] 07147 Urea nitrogen [Mass/Vol] 8 mg/dL Normal 5-23 [facility] Comment on above: Performed By: #### C BCA, CMP, 2156-6, 11027-3, 46971-3, 07960-7, PINR, 75208-5, 2639-3 #### [facility] ([id number]) [address] [place] [address] 31131 MAGNESIUMon 08-31-2024 Magnesium [Mass/Vol] 2.0 mg/dL Normal 1.8-2.6 [facility] Comment on above: Performed By: #### C BCA, CMP, 2156-6, 22249-0, 21500-0, 11852-0, PINR, 95826-1, 2639-3 #### [facility] ([id number]) [address] [place] [address] 14115 Myoglobin [Mass/Vol]on 08-31 SERUM MYOGLOBIN 47.5 ng/mL Normal 14.3-65.8 [facility] Comment on above: Performed By: #### C BCA, CMP, 2156-6, 80108-0, 65095-3, 24456-2, PINR, 64685-2, 2639-3 #### [facility] ([id number]) [address] [place] [address] 51780 SERUM MYOGLOBIN 62.9 ng/mL Normal 14.3-65.8 [facility] Comment on above: Performed By: #### C BCA, CMP, 2156-6, 41290-1, 43746-0, 11535-1, PINR, 98940-3, 2639-3 #### [facility] ([id number]) [address] [place] [address] 81053 POTASSIUMon 08-31-2024 Potassium [Moles/Vol] 4.0 mmol/L Normal 3.5-5.0 [facility] Comment on above: Performed By: #### C BCA, CMP, 2156-6, 34463-0, 53939-3, 13320-7, PINR, 14160-8, 2639-3 #### [facility] ([id number]) [address] [place] [address] 72763 CBC AND AUTO DIFFon 08-31-19 25 ABSOLUTE BASOPHIL 0.1 X10E9/L Normal 0.0-0.2 [facility] Comment on above: Performed By: #### C BCA, CMP, 2156-6, 31029-7, 69506-0, 65285-3, PINR, 84357-7, 2639-3 #### [facility] ([id number]) [address] [place] [address] 70314 ABSOLUTE NEUTROPHIL 9.5 X10E9/L High 1.5-6.6 [facility] Comment on above: Performed By: #### C BCA, CMP, 2156-6, 96751-8, 87924-1, 44173-6, PINR, 56731-7, 2639-3 #### [facility] ([id number]) [address] [place] [address] 97158 Basophils/100 WBC (Bld) 0.5 % Normal [facility] Comment on above: Performed By: #### C BCA, CMP, 2156-6, 68373-4, 98548-2, 40035-9, PINR, 20388-3, 2639-3 #### [facility] ([id number]) [address] [place] [address] [place] [address] Eosinophils (Bld) [#/Vol] 0.0 10*3/uL Normal 0.0-0.4 [facility] Comment on above: Performed By: #### C BCA, CMP, 2156-6, 49411-9, 21413-9, 53372-0, PINR, 51458-5, 2639-3 #### [facility] ([id number]) [address] [place] [address] 99039 Eosinophils/100 WBC (Bld) 0.3 % Normal [facility] Comment on above: Performed By: #### C BCA, CMP, 2156-6, 77380-0, 51396-9, 52637-2, PINR, 17089-2, 2639-3 #### [facility] ([id number]) [address] [place] [address] [place] [address] Erythrocyte distribution width (RBC) [Ratio] 15.0 % Normal 11.5-15.0 [facility] Comment on above: Performed By: #### C BCA, CMP, 2156-6, 96744-5, 60100-4, 06331-8, PINR, 58682-4, 2639-3 #### [facility] ([id number]) [address] [place] [address] 52982 Hematocrit (Bld) [Volume fraction] 36.8 % Normal 35-47 [facility] Comment on above: Performed By: #### C BCA, CMP, 2156-6, 39131-8, 41283-0, 60276-4, PINR, 35112-8, 2639-3 #### [facility] ([id number]) [address] [place] [address] 86329 Hemoglobin (Bld) [Mass/Vol] 12.4 g/dL Normal 11.7-15.5 [facility] Comment on above: Performed By: #### C BCA, CMP, 2156-, 18715-3, 94211-2, 74314-9, PINR, 06116-6, 2639-3 #### [facility] ([id number]) [address] [place] [address] 27815 Lymphocytes (Bld) [#/Vol] 0.7 10*3/uL Low 1.0-3.5 [facility] Comment on above: Performed By: #### C BCA, CMP, 2156-6, 28679-8, 72179-8, 21309-7, PINR, 28831-0, 2639-3 #### [facility] ([id number]) [address] [place] [address] 11116 Lymphocytes/100 WBC (Bld) 5.8 % Normal [facility] Comment on above: Performed By: #### C BCA, CMP, 2156-6, 20504-0, 71492-1, 19219-4, PINR, 58011-7, 2639-3 #### [facility] ([id number]) [address] [place] [address] 89704 MCH (RBC) [Entitic mass] 28.0 pg Normal 27-34 [facility] Comment on above: Performed By: #### C BCA, CMP, 2156-6, 31777-3, 35157-1, 50667-2, PINR, 46207-2, 2639-3 #### [facility] ([id number]) [address] [place] [address] 82357 MCHC (RBC) [Mass/Vol] 33.6 g/dL Normal 32-36 [facility] Comment on above: Performed By: #### C BCA, CMP, 2156-6, 35018-7, 95388-8, 50798-6, PINR, 65641-2, 2639-3 #### [facility] ([id number]) [address] [place] [address] 77812 MCV (RBC) [Entitic vol] 83 fL Normal 80-[address] [facility] Comment on above: Performed By: #### C BCA, CMP, 2156-, 22497-8, 64074-4, 33216-7, PINR, 83347-0, 2639-3 #### [facility] ([id number]) [address] [place] [address] 62414 Monocytes (Bld) [#/Vol] 1.1 10*3/uL High 0-0.9 [facility] Comment on above: Performed By: #### C BCA, CMP, 2156-, 48396-5, 10012-8, 58709-8, PINR, 47422-0, 2639-3 #### [facility] ([id number]) [address] [place] [address] 90529 Monocytes/100 WBC (Bld) 9.8 % Normal P [facility] Comment on above: Performed By: #### C BCA, CMP, 2156-6, 11420-9, 15995-7, 85133-9, PINR, 02509-7, 2639-3 #### [facility] ([id number]) [address] [place] [address] 78831 Neutrophils/100 WBC (Bld) 83.6 % Normal [facility] Comment on above: Performed By: #### C BCA, CMP, 2156-6, 53012-4, 59257-2, 45082-3, PINR, 82007-7, 2639-3 #### [facility] ([id number]) [address] [place] [address] 20088 Platelet mean volume (Bld) [Entitic vol] 9.6 fL Normal 7-12 [facility] Comment on above: Performed By: #### C BCA, CMP, 2156-6, 78278-3, 16229-3, 89336-5, PINR, 19266-4, 2639-3 #### [facility] ([id number]) [address] [place] [address] 15701 Platelets (Bld) [#/Vol] 202 10*3/uL Normal 150-450 [facility] Comment on above: Performed By: #### C BCA, CMP, 2156-6, 34960-7, 99099-1, 83232-7, PINR, 87484-5, 2639-3 #### [facility] ([id number]) [address] [place] [address] 84300 RBC COUNT 4.41 X10E12/L Normal 3.80-5.20 [facility] Comment on above: Performed By: #### C BCA, CMP, 2156-6, 48833-9, 40927-4, 09016-6, PINR, 02390-1, 2639-3 #### [facility] ([id number]) [address] [place] [address] 83859 WBC (Bld) [#/Vol] 11.4 10*3/uL High 4.0-11.0 [facility] Comment on above: Performed By: #### C BCA, CMP, 2156-6, 22518-2, 66076-6, 89660-1, PINR, 42499-0, 2639-3 #### [facility] ([id number]) [address] [place] [address] 90327 CK [Catalytic activity/Vol]o n 08-30-2024 CPK 563 U/L High 24-170 [facility] Comment on above: Performed By: #### C BCA, CMP, 2157-6, 99569-7, 91897-2, 26939-5, PINR, 48974-5, 2639-3 #### [facility] ([id number]) [address] [place] [address] 71442 CPK 831 U/L High 24-170 [facility] Comment on above: Performed By: #### C BCA, CMP, 2157-6, 79184-5, 30910-3, 45524-0, PINR, 65705-1, 2639-3 #### [facility] ([id number]) [address] [place] [address] 50743 CPK 1066 U/L High 24-170 [facility] Comment on above: Performed By: #### C BCA, CMP, 2157-6, 90776-1, 78683-5, 54104-8, PINR, 50300-7, 2639-3 #### [facility] ([id number]) [address] [place] [address] 70977 COMPREHENSIVE METABOLIC PANE Antoni 08-30-2024 Albumin [Mass/Vol] 2.7 g/dL Low 3.2-5.3 [facility] Comment on above: Performed By: #### C BCA, CMP, 2157-6, 65727-9, 48773-1, 92978-6, PINR, 72539-3, 2639-3 #### [facility] ([id number]) [address] [place] [address] 56795 ALP [Catalytic activity/Vol] 57 U/L Normal 39-130 [facility] Comment on above: Performed By: #### C BCA, CMP, 7-6, 64959-4, 10007-2, 68656-5, PINR, 43849-7, 2639-3 #### [facility] ([id number]) [address] [place] [address] 70613 ALT [Catalytic activity/Vol] 36 U/L High 0-31 [facility] Comment on above: Performed By: #### C BCA, CMP, 7-6, 12834-8, 66793-8, 94692-5, PINR, 40759-7, 2639-3 #### [facility] ([id number]) [address] [place] [address] 56024 Anion gap [Moles/Vol] 11 mmol/L Normal 5-15 [facility] Comment on above: Performed By: #### C BCA, CMP, 2156-6, 48155-2, 91305-4, 73869-9, PINR, 87150-3, 2639-3 #### [facility] ([id number]) [address] [place] [address] 35508 AST [Catalytic activity/Vol] 52 U/L High 0-41 [facility] Comment on above: Performed By: #### C BCA, CMP, 2156-6, 44245-5, 78356-8, 43297-9, PINR, 35833-0, 2639-3 #### [facility] ([id number]) [address] [place] [address] 42883 Bilirubin [Mass/Vol] 0.6 mg/dL Normal 0.3-1.2 [facility] Comment on above: Performed By: #### C BCA, CMP, 2157-6, 66314-9, 57280-5, 48394-8, PINR, 35051-1, 2639-3 #### [facility] ([id number]) [address] [place] [address], [place] [address] Calcium [Mass/Vol] 8.2 mg/dL Low 8.5-10.5 [facility] Comment on above: Performed By: #### C BCA, CMP, 7-6, 68817-0, 40039-4, 39862-8, PINR, 86861-7, 2639-3 #### [facility] ([id number]) [address] [place] [address] 46485 Chloride [Moles/Vol] 106 mmol/L Normal 98-109 [facility] Comment on above: Performed By: #### C BCA, CMP, 2156-6, 93235-5, 62800-4, 20707-3, PINR, 81735-0, 2639-3 #### [facility] ([id number]) [address] [place] [address] 71663 CO2 [Moles/Vol] 21 mmol/L Low 22-32 [facility] Comment on above: Performed By: #### C BCA, CMP, 2156-6, 56747-5, 33802-7, 28800-1, PINR, 49033-7, 2639-3 #### [facility] ([id number]) [address] [place] [address] 83642 Creatinine [Mass/Vol] 0.87 mg/dL Normal 0.40-1.00 [facility] Comment on above: Result Comment: METH OD TRACEABLE TO IDMS STANDARD Performed By: #### C BCA, CMP, 2156-6, 21542-3, 40119-5, 46933-6, PINR, 65026-2, 2639-3 #### [facility] ([id number]) [address] [place] [address] 83354 GFR/1.73 sq M.predicted among non-blacks MDRD (S/P/Bld) [Vol rate/Area] 78 mL/min/{1.73_m2} Normal >59 [facility] Comment on above: Result Comment: Reported eGFR is based on the CKD-EPI 2020 equation that does not use a race coefficient. Performed By: #### C BCA, CMP, 7-6, 12684-7, 99627-7, 36292-3, PINR, 38362-0, 2639-3 #### [facility] ([id number]) [address] [place] [address] 06120 Glucose [Mass/Vol] 107 mg/dL High 65-99 [facility] Comment on above: Performed By: #### C BCA, CMP, 2156-6, 10843-9, 99902-8, 08925-1, PINR, 10620-8, 2639-3 #### [facility] ([id number]) [address] [place] [address] 45525 Potassium [Moles/Vol] 3.9 mmol/L Normal 3.5-5.0 [facility] Comment on above: Performed By: #### C BCA, CMP, 2156-6, 91959-2, 83474-1, 05417-1, PINR, 71792-2, 2639-3 #### [facility] ([id number]) [address] [place] [address] 19878 Protein [Mass/Vol] 6.2 g/dL Normal 6.0-8.0 [facility] Comment on above: Performed By: #### C BCA, CMP, 2156-6, 75042-1, 51795-6, 77945-3, PINR, 18897-9, 2639-3 #### [facility] ([id number]) [address] [place] [address] 80282 Sodium [Moles/Vol] 138 mmol/L Normal 134-146 [facility] Comment on above: Performed By: #### C BCA, CMP, 2156-6, 96278-6, 20456-7, 02065-2, PINR, 39581-3, 2639-3 #### [facility] ([id number]) [address] [place] [address] 89981 Urea nitrogen [Mass/Vol] 6 mg/dL Normal 5-23 [facility] Comment on above: Performed By: #### C BCA, CMP, 7-6, 20123-4, 03381-9, 88753-7, PINR, 81246-8, 2639-3 #### [facility] ([id number]) [address] [place] [address] 17777 MAGNESIUMon 08-30-2024 Magnesium [Mass/Vol] 2.0 mg/dL Normal 1.8-2.6 [facility] Comment on above: Performed By: #### C BCA, CMP, 2156-6, 43475-8, 49833-8, 74577-7, PINR, 88287-5, 2639-3 #### [facility] ([id number]) [address] [place] [address] 78579 Myoglobin [Mass/Vol]on 08-30 SERUM MYOGLOBIN 67.5 ng/mL High 14.3-65.8 [facility] Comment on above: Performed By: #### C BCA, CMP, 2156-6, 77310-7, 50698-5, 76573-6, PINR, 70917-5, 2639-3 #### [facility] ([id number]) [address] [place] [address] 59236 SERUM MYOGLOBIN 127.2 ng/mL High 14.3-65.8 [facility] Comment on above: Performed By: #### C BCA, CMP, 2156-6, 79769-1, 01420-1, 42354-1, PINR, 69768-7, 2639-3 #### [facility] ([id number]) [address] [place] [address] 94688 SERUM MYOGLOBIN 77.9 ng/mL High 14.3-65.8 [facility] Comment on above: Performed By: #### C BCA, CMP, 2157-6, 74913-0, 14553-9, 09444-5, PINR, 22828-3, 2639-3 #### [facility] ([id number]) [address] [place] [address] 37872 CBC AND AUTO DIFFon 08-30-19 25 ABSOLUTE BASOPHIL 0.0 X10E9/L Normal 0.0-0.2 [facility] Comment on above: Performed By: #### C BCA, CMP, 2156-6, 24845-5, 93508-4, 13232-8, PINR, 20335-9, 2639-3 #### [facility] ([id number]) [address] [place] [address] [place] [address] ABSOLUTE NEUTROPHIL 5.8 X10E9/L Normal 1.5-6.6 [facility] Comment on above: Performed By: #### C BCA, CMP, 2156-6, 19897-0, 62135-7, 32365-2, PINR, 03641-7, 2639-3 #### [facility] ([id number]) [address] [place] [address] [place] [address] Basophils/100 WBC (Bld) 0.5 % Normal [facility] Comment on above: Performed By: #### C BCA, CMP, 2156-6, 46770-4, 38055-0, 87227-4, PINR, 59061-1, 2639-3 #### [facility] ([id number]) [address] [place] [address] 79035 Eosinophils (Bld) [#/Vol] 0.1 10*3/uL Normal 0.0-0.4 [facility] Comment on above: Performed By: #### C BCA, CMP, 7-6, 25564-1, 03793-4, 45552-6, PINR, 17674-1, 2639-3 #### [facility] ([id number]) [address] [place] [address] 44394 Eosinophils/100 WBC (Bld) 1.6 % Normal [facility] Comment on above: Performed By: #### C BCA, CMP, 7-6, 57077-4, 29950-6, 35500-1, PINR, 04600-0, 2639-3 #### [facility] ([id number]) [address] [place] [address] 62916 Erythrocyte distribution width (RBC) [Ratio] 15.7 % High 11.5-15.0 [facility] Comment on above: Performed By: #### C BCA, CMP, 2156-6, 15485-2, 75827-7, 14582-2, PINR, 50615-6, 2639-3 #### [facility] ([id number]) [address] [place] [address] 14908 Hematocrit (Bld) [Volume fraction] 36.8 % Normal 35-47 [facility] Comment on above: Performed By: #### C BCA, CMP, 2156-6, 79338-3, 46564-7, 52568-9, PINR, 24300-5, 2639-3 #### [facility] ([id number]) [address] [place] [address] 19724 Hemoglobin (Bld) [Mass/Vol] 12.3 g/dL Normal 11.7-15.5 [facility] Comment on above: Performed By: #### C BCA, CMP, 2156-6, 67820-1, 63045-3, 38965-8, PINR, 11461-1, 2639-3 #### [facility] ([id number]) [address] [place] [address] 56613 Lymphocytes (Bld) [#/Vol] 0.9 10*3/uL Low 1.0-3.5 [facility] Comment on above: Performed By: #### C BCA, CMP, 2156-, 39664-0, 57422-7, 99741-6, PINR, 03903-9, 2639-3 #### [facility] ([id number]) [address] [place] [address] 06228 Lymphocytes/100 WBC (Bld) 11.3 % Normal [facility] Comment on above: Performed By: #### C BCA, CMP, 2156-, 41471-1, 31096-0, 20320-6, PINR, 74055-7, 2639-3 #### [facility] ([id number]) [address] [place] [address] 67547 MCH (RBC) [Entitic mass] 27.8 pg Normal 27-34 [facility] Comment on above: Performed By: #### C BCA, CMP, 2156-10, 18828-6, 70028-3, 92883-3, PINR, 48253-6, 2639-3 #### [facility] ([id number]) [address] [place] [address] 59749 MCHC (RBC) [Mass/Vol] 33.4 g/dL Normal 32-36 [facility] Comment on above: Performed By: #### C BCA, CMP, 2156-10, 75372-7, 40041-1, 54663-0, PINR, 16502-5, 2639-3 #### [facility] ([id number]) [address] [place] [address] 01754 MCV (RBC) [Entitic vol] 83 fL Normal 80-100 [facility] Comment on above: Performed By: #### C BCA, CMP, 2156-, 62728-9, 89916-6, 78768-5, PINR, 97174-6, 2639-3 #### [facility] ([id number]) [address] [place] [address] 37271 Monocytes (Bld) [#/Vol] 0.8 10*3/uL Normal 0-0.9 [facility] Comment on above: Performed By: #### C BCA, CMP, 2156-6, 67108-2, 48101-7, 65646-6, PINR, 22088-5, 2639-3 #### [facility] ([id number]) [address] [place] [address] 57182 Monocytes/100 WBC (Bld) 10.5 % Normal [facility] Comment on above: Performed By: #### C BCA, CMP, 2156-, 51333-1, 05856-4, 04737-1, PINR, 60719-2, 2639-3 #### [facility] ([id number]) [address] [place] [address] 33721 Neutrophils/100 WBC (Bld) 76.1 % Normal [facility] Comment on above: Performed By: #### C BCA, CMP, 2156-6, 93915-5, 89442-8, 38653-5, PINR, 53910-5, 2639-3 #### [facility] ([id number]) [address] [place] [address] 57211 Platelet mean volume (Bld) [Entitic vol] 9.1 fL Normal 7-12 [facility] Comment on above: Performed By: #### C BCA, CMP, 2156-6, 26627-0, 14238-6, 67570-2, PINR, 12609-6, 2639-3 #### [facility] ([id number]) [address] [place] [address] 50856 Platelets (Bld) [#/Vol] 188 10*3/uL Normal 150-450 [facility] Comment on above: Performed By: #### C BCA, CMP, 2156-, 67736-8, 12052-7, 72194-9, PINR, 52450-1, 2639-3 #### [facility] ([id number]) [address] [place] [address] 91573 RBC COUNT 4.42 X10E12/L Normal 3.80-5.20 [facility] Comment on above: Performed By: #### C BCA, CMP, 2157-6, 18869-1, 54582-0, 20350-0, PINR, 11309-6, 2639-3 #### [facility] ([id number]) [address] [place] [address] 00118 WBC (Bld) [#/Vol] 7.7 10*3/uL Normal 4.0-11.0 [facility] Comment on above: Performed By: #### C BCA, CMP, 2157-6, 21331-4, 26226-6, 71178-0, PINR, 25117-7, 2639-3 #### [facility] ([id number]) [address] [place] [address] 75204 CK [Catalytic activity/Vol]o n 08-29-2024 CPK 1666 U/L High 24-170 [facility] Comment on above: Performed By: #### C BCA, CMP, 2157-6, 71514-2, 19896-0, 68078-5, PINR, 30286-1, 2639-3 #### [facility] ([id number]) [address] [place] [address] 53037 CPK 2774 U/L High 24-170 [facility] Comment on above: Performed By: #### C BCA, CMP, 2157-6, 89076-9, 24538-3, 21797-3, PINR, 85062-6, 2639-3 #### [facility] ([id number]) [address] [place] [address] 02034 CPK 3580 U/L High 24-170 [facility] Comment on above: Performed By: #### C BCA, CMP, 2157-6, 94487-1, 53123-4, 16445-9, PINR, 54994-0, 2639-3 #### [facility] ([id number]) [address] [place] [address] 02751 COMPREHENSIVE METABOLIC PANE Antoni 08-29-2024 Albumin [Mass/Vol] 2.7 g/dL Low 3.2-5.3 [facility] Comment on above: Performed By: #### C BCA, CMP, 7-6, 31771-7, 29403-6, 57779-9, PINR, 60707-8, 2639-3 #### [facility] ([id number]) [address] [place] [address] 19576 ALP [Catalytic activity/Vol] 60 U/L Normal 39-130 [facility] Comment on above: Performed By: #### C BCA, CMP, 2156-6, 64080-5, 55455-9, 79947-5, PINR, 12286-2, 2639-3 #### [facility] ([id number]) [address] [place] [address] 48434 ALT [Catalytic activity/Vol] 46 U/L High 0-31 [facility] Comment on above: Performed By: #### C BCA, CMP, 2156-6, 84992-7, 18806-1, 63902-8, PINR, 25407-2, 2639-3 #### [facility] ([id number]) [address] [place] [address] 11712 Anion gap [Moles/Vol] 8 mmol/L Normal 5-15 [facility] Comment on above: Performed By: #### C BCA, CMP, 2157-6, 19697-8, 22072-3, 18188-4, PINR, 21375-6, 2639-3 #### [facility] ([id number]) [address] [place] [address], [place] [address] AST [Catalytic activity/Vol] 94 U/L High 0-41 [facility] Comment on above: Performed By: #### C BCA, CMP, 2156-, 72573-3, 55641-1, 96682-7, PINR, 33744-6, 2639-3 #### [facility] ([id number]) [address] [place] [address] 05996 Bilirubin [Mass/Vol] 0.5 mg/dL Normal 0.3-1.2 [facility] Comment on above: Performed By: #### C BCA, CMP, 2156-10, 90819-7, 99549-8, 81789-0, PINR, 86691-7, 2639-3 #### [facility] ([id number]) [address] [place] [address] 11475 Calcium [Mass/Vol] 8.0 mg/dL Low 8.5-10.5 [facility] Comment on above: Performed By: #### C BCA, CMP, 2156-10, 70986-6, 84863-8, 24346-7, PINR, 08555-1, 2639-3 #### [facility] ([id number]) [address] [place] [address] 30969 Chloride [Moles/Vol] 112 mmol/L High 98-109 [facility] Comment on above: Performed By: #### C BCA, CMP, 2156-10, 48517-8, 58123-3, 88151-3, PINR, 80864-2, 2639-3 #### [facility] ([id number]) [address] [place] [address] 31222 CO2 [Moles/Vol] 20 mmol/L Low 22-32 [facility] Comment on above: Performed By: #### C BCA, CMP, 2156-, 86096-3, 91768-5, 39820-0, PINR, 29004-7, 2639-3 #### [facility] ([id number]) [address] [place] [address] 06905 Creatinine [Mass/Vol] 0.86 mg/dL Normal 0.40-1.00 [facility] Comment on above: Result Comment: METH OD TRACEABLE TO IDMS STANDARD Performed By: #### C BCA, CMP, 7-6, 89358-7, 77448-5, 52332-7, PINR, 54090-0, 2639-3 #### [facility] ([id number]) [address] [place] [address] 82576 GFR/1.73 sq M.predicted among non-blacks MDRD (S/P/Bld) [Vol rate/Area] 79 mL/min/{1.73_m2} Normal >59 [facility] Comment on above: Result Comment: Reported eGFR is based on the CKD-EPI 2020 equation that does not use a race coefficient. Performed By: #### C BCA, CMP, 2156-6, 61127-4, 21608-9, 19230-2, PINR, 26903-9, 2639-3 #### [facility] ([id number]) [address] [place] [address] 62859 Glucose [Mass/Vol] 91 mg/dL Normal 65-99 [facility] Comment on above: Performed By: #### C BCA, CMP, 2156-6, 87673-5, 26761-1, 64277-9, PINR, 60335-0, 2639-3 #### [facility] ([id number]) [address] [place] [address] 88627 Potassium [Moles/Vol] 4.0 mmol/L Normal 3.5-5.0 [facility] Comment on above: Performed By: #### C BCA, CMP, 7-6, 17093-5, 99643-4, 75356-4, PINR, 74102-3, 2639-3 #### [facility] ([id number]) [address] [place] [address] 95104 Protein [Mass/Vol] 6.4 g/dL Normal 6.0-8.0 [facility] Comment on above: Performed By: #### C BCA, CMP, 2157-6, 90866-4, 32920-3, 11169-6, PINR, 65368-2, 2639-3 #### [facility] ([id number]) [address] [place] [address] 51651 Sodium [Moles/Vol] 140 mmol/L Normal 134-146 [facility] Comment on above: Performed By: #### C BCA, CMP, 7-6, 86668-3, 52214-7, 18475-1, PINR, 20513-4, 2639-3 #### [facility] ([id number]) [address] [place] [address] 41856 Urea nitrogen [Mass/Vol] 10 mg/dL Normal 5-23 [facility] Comment on above: Performed By: #### C BCA, CMP, 7-6, 82504-1, 63179-6, 23276-4, PINR, 77921-5, 2639-3 #### [facility] ([id number]) [address] [place] [address] 75115 Calcium.ionized (Bld) [Moles /Vol]on 08-29-2024 PORTABLE ICA 4.6 mg/dL Normal 4.5-5.3 [facility] Comment on above: Performed By: #### C BCA, CMP, 7-6, 09477-8, 91961-3, 96451-0, PINR, 96846-0, 2639-3 #### [facility] ([id number]) [address] [place] [address] 26905 Lipid 1996 panelon Cholesterol [Mass/Vol] 151 mg/dL Normal 150-200 [facility] Comment on above: Performed By: #### C BCA, CMP, 7-6, 45439-6, 95795-0, 42625-8, PINR, 39797-3, 2639-3 #### [facility] ([id number]) [address] [place] [address] 53194 Cholesterol in HDL [Mass/Vol] 29 mg/dL Low >39 [facility] Comment on above: Result Comment: HDL <40 mg/dL - High Risk HDL > or = 40mg/dL- Desirable HDL >60 mg/dL - Negative Risk Performed By: #### C BCA, CMP, 2156-6, 84749-2, 34208-5, 59508-9, PINR, 32494-7, 2639-3 #### [facility] ([id number]) [address] [place] [address] 74459 Cholesterol in LDL [Mass/Vol] 100 mg/dL Normal <130 [facility] Comment on above: Result Comment: LDL <100 mg/dL - Desirable LDL >160 mg/dL - High Risk Performed By: #### C BCA, CMP, 2156-6, 58501-7, 34696-5, 94272-0, PINR, 92176-2, 2639-3 #### [facility] ([id number]) [address] [place] [address] 92156 Cholesterol in VLDL [Mass/Vol] 22 mg/dL Normal 0-30 [facility] Comment on above: Performed By: #### C BCA, CMP, 7-6, 19052-7, 60504-9, 40360-9, PINR, 09977-1, 2639-3 #### [facility] ([id number]) [address] [place] [address] 10202 CHOLESTEROL:HDL 5.2 High 1.0-5.0 [facility] Comment on above: Performed By: #### C BCA, CMP, 2156-, 70760-5, 82896-0, 93096-6, PINR, 79370-9, 2639-3 #### [facility] ([id number]) [address] [place] [address] 71497 Triglyceride [Mass/Vol] 112 mg/dL Normal 27-150 [facility] Comment on above: Performed By: #### C BCA, CMP, 2156-, 50825-7, 67272-8, 16107-2, PINR, 13903-6, 2639-3 #### [facility] ([id number]) [address] [place] [address] 32125 MAGNESIUMon 08-29-2024 Magnesium [Mass/Vol] 2.1 mg/dL Normal 1.8-2.6 [facility] Comment on above: Performed By: #### C BCA, CMP, 2156-, 49532-7, 03726-9, 09891-2, PINR, 32530-8, 2639-3 #### [facility] ([id number]) [address] [place] [address] 01127 Magnesium [Mass/Vol] 1.9 mg/dL Normal 1.8-2.6 [facility] Comment on above: Performed By: #### C BCA, CMP, 2156-, 42074-2, 28835-1, 63711-2, PINR, 10784-5, 2639-3 #### [facility] ([id number]) [address] [place] [address] 78378 Myoglobin [Mass/Vol]on 08-29 SERUM MYOGLOBIN 96.4 ng/mL High 14.3-65.8 [facility] Comment on above: Performed By: #### C BCA, CMP, 2156-6, 26354-0, 53259-1, 12673-0, PINR, 42071-3, 2639-3 #### [facility] ([id number]) [address] [place] [address] 02375 SERUM MYOGLOBIN 230.3 ng/mL High 14.3-65.8 [facility] Comment on above: Performed By: #### C BCA, CMP, 2156-6, 04056-4, 81828-3, 28239-1, PINR, 99938-2, 2639-3 #### [facility] ([id number]) [address] [place] [address] [place] [address] SERUM MYOGLOBIN 374.0 ng/mL High 14.3-65.8 [facility] Comment on above: Performed By: #### C BCA, CMP, 2156-6, 94978-0, 97433-2, 74232-7, PINR, 28131-0, 2639-3 #### [facility] ([id number]) [address] [place] [address] [place] [address] CBC AND AUTO DIFFon 08-29-19 25 ABSOLUTE BASOPHIL 0.0 X10E9/L Normal 0.0-0.2 [facility] Comment on above: Performed By: #### C BCA, CMP, 2156-6, 26649-3, 69982-5, 87221-4, PINR, 21752-0, 2639-3 #### [facility] ([id number]) [address] [place] [address] 29464 ABSOLUTE NEUTROPHIL 12.1 X10E9/L High 1.5-6.6 [facility] Comment on above: Performed By: #### C BCA, CMP, 2156-6, 58761-8, 67113-3, 41431-8, PINR, 64049-3, 2639-3 #### [facility] ([id number]) [address] [place] [address] 35058 Basophils/100 WBC (Bld) 0.2 % Normal [facility] Comment on above: Performed By: #### C BCA, CMP, 2156-6, 22304-5, 89154-0, 85614-5, PINR, 57896-4, 2639-3 #### [facility] ([id number]) [address] [place] [address] 89120 Eosinophils (Bld) [#/Vol] 0.0 10*3/uL Normal 0.0-0.4 [facility] Comment on above: Performed By: #### C BCA, CMP, 2156-6, 58422-9, 20287-7, 15871-7, PINR, 58235-1, 2639-3 #### [facility] ([id number]) [address] [place] [address] 01228 Eosinophils/100 WBC (Bld) 0.1 % Normal [facility] Comment on above: Performed By: #### C BCA, CMP, 2156-6, 44789-6, 26938-6, 81625-1, PINR, 37020-8, 2639-3 #### [facility] ([id number]) [address] [place] [address] 34582 Erythrocyte distribution width (RBC) [Ratio] 15.7 % High 11.5-15.0 [facility] Comment on above: Performed By: #### C BCA, CMP, 2156-6, 02267-4, 25326-9, 27246-5, PINR, 64902-3, 2639-3 #### [facility] ([id number]) [address] [place] [address] 61153 Hematocrit (Bld) [Volume fraction] 40.3 % Normal 35-47 [facility] Comment on above: Performed By: #### C BCA, CMP, 2156-6, 96419-8, 60619-4, 01380-4, PINR, 62749-6, 2639-3 #### [facility] ([id number]) [address] [place] [address] 25195 Hemoglobin (Bld) [Mass/Vol] 13.5 g/dL Normal 11.7-15.5 [facility] Comment on above: Performed By: #### C BCA, CMP, 2156-6, 16221-6, 93043-5, 50314-8, PINR, 65524-3, 2639-3 #### [facility] ([id number]) [address] [place] [address] 21012 Lymphocytes (Bld) [#/Vol] 0.6 10*3/uL Low 1.0-3.5 [facility] Comment on above: Performed By: #### C BCA, CMP, 2156-, 93109-9, 74347-4, 07409-9, PINR, 07702-5, 2639-3 #### [facility] ([id number]) [address] [place] [address] 92134 Lymphocytes/100 WBC (Bld) 4.6 % Normal [facility] Comment on above: Performed By: #### C BCA, CMP, 2156-6, 56221-7, 59594-3, 43006-0, PINR, 82364-2, 2639-3 #### [facility] ([id number]) [address] [place] [address] 09813 MCH (RBC) [Entitic mass] 28.0 pg Normal 27-34 [facility] Comment on above: Performed By: #### C BCA, CMP, 2156-6, 88299-1, 49389-4, 82000-2, PINR, 86655-8, 2639-3 #### [facility] ([id number]) [address] [place] [address] MCHC (RBC) [Mass/Vol] 33.6 g/dL Normal 32-36 [facility] Comment on above: Performed By: #### C BCA, CMP, 2156-6, 18597-3, 06974-8, 73477-9, PINR, 67132-2, 2639-3 #### [facility] ([id number]) [address] [place] [address] 46102 MCV (RBC) [Entitic vol] 83 fL Normal 80-[address] [facility] Comment on above: Performed By: #### C BCA, CMP, 2156-6, 08130-6, 68750-9, 06706-9, PINR, 76299-5, 2639-3 #### [facility] ([id number]) [address] [place] [address] 90998 Monocytes (Bld) [#/Vol] 1.4 10*3/uL High 0-0.9 [facility] Comment on above: Performed By: #### C BCA, CMP, 2156-6, 52827-5, 21551-7, 96624-8, PINR, 98417-4, 2639-3 #### [facility] ([id number]) [address] [place] [address] 62976 Monocytes/100 WBC (Bld) 9.9 % Normal [facility] Comment on above: Performed By: #### C BCA, CMP, 2156-6, 47138-7, 81425-3, 86908-9, PINR, 03778-1, 2639-3 #### [facility] ([id number]) [address] [place] [address] 62118 Neutrophils/100 WBC (Bld) 85.2 % Normal [facility] Comment on above: Performed By: #### C BCA, CMP, 2156-6, 06959-2, 04878-6, 13736-4, PINR, 83626-3, 2639-3 #### [facility] ([id number]) [address] [place] [address] 57452 Platelet mean volume (Bld) [Entitic vol] 9.0 fL Normal 7-12 [facility] Comment on above: Performed By: #### C BCA, CMP, 2157-6, 46339-9, 83372-1, 34630-5, PINR, 36051-8, 2639-3 #### [facility] ([id number]) [address] [place] [address] 46409 Platelets (Bld) [#/Vol] 239 10*3/uL Normal 150-450 [facility] Comment on above: Performed By: #### C BCA, CMP, 7-6, 13306-1, 88704-5, 64541-1, PINR, 98393-2, 2639-3 #### [facility] ([id number]) [address] [place] [address] 47080 RBC COUNT 4.83 X10E12/L Normal 3.80-5.20 [facility] Comment on above: Performed By: #### C BCA, CMP, 2157-6, 03997-9, 46969-2, 94673-9, PINR, 34391-8, 2639-3 #### [facility] ([id number]) [address] [place] [address] 65008 WBC (Bld) [#/Vol] 14.2 10*3/uL High 4.0-11.0 [facility] Comment on above: Performed By: #### C BCA, CMP, 2157-6, 70941-2, 24213-1, 97394-5, PINR, 84082-8, 2639-3 #### [facility] ([id number]) [address] [place] [address] 93122 CK [Catalytic activity/Vol]o n 08-28-2024 CPK 4648 U/L High 24-170 [facility] Comment on above: Performed By: #### C BCA, CMP, 2157-6, 24551-3, 74313-7, 53933-1, PINR, 82199-7, 2639-3 #### [facility] ([id number]) [address] [place] [address] 49106 CPK 3034 U/L High 24-170 [facility] Comment on above: Performed By: #### C BCA, CMP, 2157-6, 93565-5, 40707-7, 14784-6, PINR, 14695-0, 2639-3 #### [facility] ([id number]) [address] [place] [address] [place] [address] COMPREHENSIVE METABOLIC PANE [facility] 08-28-2024 Albumin [Mass/Vol] 3.5 g/dL Normal 3.2-5.3 [facility] Comment on above: Performed By: #### C BCA, CMP, 2157-6, 01310-6, 58759-7, 56938-9, PINR, 68289-6, 2639-3 #### [facility] ([id number]) [address] [place] [address] [place] [address] ALP [Catalytic activity/Vol] 86 U/L Normal 39-130 [facility] Comment on above: Performed By: #### C BCA, CMP, 2157-6, 04629-7, 06021-2, 60586-6, PINR, 85986-0, 2639-3 #### [facility] ([id number]) [address] [place] [address] [place] [address] ALT [Catalytic activity/Vol] 32 U/L High 0-31 [facility] Comment on above: Performed By: #### C BCA, CMP, 2157-6, 25379-4, 06784-3, 45847-2, PINR, 97984-0, 2639-3 #### [facility] ([id number]) [address] [place] [address] 21196 Anion gap [Moles/Vol] 10 mmol/L Normal 5-15 [facility] Comment on above: Performed By: #### C BCA, CMP, 7-6, 53500-9, 15094-0, 20484-0, PINR, 45299-8, 2639-3 #### [facility] ([id number]) [address] [place] [address] 77641 AST [Catalytic activity/Vol] 62 U/L High 0-41 [facility] Comment on above: Performed By: #### C BCA, CMP, 2156-6, 81626-3, 87794-2, 23856-3, PINR, 35433-5, 2639-3 #### [facility] ([id number]) [address] [place] [address] 80285 Bilirubin [Mass/Vol] 0.6 mg/dL Normal 0.3-1.2 [facility] Comment on above: Performed By: #### C BCA, CMP, 2156-6, 65906-1, 05809-2, 47707-5, PINR, 21319-0, 2639-3 #### [facility] ([id number]) [address] [place] [address] 33756 Calcium [Mass/Vol] 9.4 mg/dL Normal 8.5-10.5 [facility] Comment on above: Performed By: #### C BCA, CMP, 2156-6, 11052-0, 25465-5, 93962-1, PINR, 48220-5, 2639-3 #### [facility] ([id number]) [address] [place] [address] 32404 Chloride [Moles/Vol] 107 mmol/L Normal 98-109 [facility] Comment on above: Performed By: #### C BCA, CMP, 2156-6, 88864-8, 72558-1, 78687-0, PINR, 59747-2, 2639-3 #### [facility] ([id number]) [address] [place] [address] 03096 CO2 [Moles/Vol] 24 mmol/L Normal 22-32 [facility] Comment on above: Performed By: #### C BCA, CMP, 2156-10, 45864-3, 58033-4, 88661-4, PINR, 03972-7, 2639-3 #### [facility] ([id number]) [address] [place] [address] 00426 Creatinine [Mass/Vol] 1.27 mg/dL High 0.40-1.00 [facility] Comment on above: Result Comment: METH OD TRACEABLE TO IDMS STANDARD Performed By: #### C BCA, CMP, 2156-10, 01016-2, 46916-2, 66291-3, PINR, 41024-3, 2639-3 #### [facility] ([id number]) [address] [place] [address] 69393 GFR/1.73 sq M.predicted among non-blacks MDRD (S/P/Bld) [Vol rate/Area] 50 mL/min/{1.73_m2} Low >59 [facility] Comment on above: Result Comment: Reported eGFR is based on the CKD-EPI 2020 equation that does not use a race coefficient. Performed By: #### C BCA, CMP, 2156-10, 34868-6, 39104-0, 97593-4, PINR, 65113-2, 2639-3 #### [facility] ([id number]) [address] [place] [address] 24755 Glucose [Mass/Vol] 137 mg/dL High 65-99 [facility] Comment on above: Performed By: #### C BCA, CMP, 2156-, 62063-6, 14920-3, 69422-8, PINR, 01967-5, 2639-3 #### [facility] ([id number]) [address] [place] [address] 24320 Potassium [Moles/Vol] 3.8 mmol/L Normal 3.5-5.0 [facility] Comment on above: Performed By: #### C BCA, CMP, 2157-6, 27246-0, 12774-2, 95413-8, PINR, 43120-5, 2639-3 #### [facility] ([id number]) [address] [place] [address] 58615 Protein [Mass/Vol] 8.1 g/dL High 6.0-8.0 [facility] Comment on above: Performed By: #### C BCA, CMP, 2157-6, 79846-4, 56178-4, 82099-4, PINR, 76167-3, 2639-3 #### [facility] ([id number]) [address] [place] [address] 20883 Sodium [Moles/Vol] 141 mmol/L Normal 134-146 [facility] Comment on above: Performed By: #### C BCA, CMP, 2157-6, 86506-6, 93203-2, 30319-3, PINR, 27549-4, 2639-3 #### [facility] ([id number]) [address] [place] [address] 75819 Urea nitrogen [Mass/Vol] 15 mg/dL Normal 5-23 [facility] Comment on above: Performed By: #### C BCA, CMP, 2157-6, 08955-4, 00214-4, 78903-9, PINR, 21639-3, 2639-3 #### [facility] ([id number]) [address] [place] [address] CTA CHESTon 08-28-2024 CT CTA CHEST [...] for acute or suspicious pathology in the [id number]-qdfp. The trachea and bronchi are patent. No [...] Reji Saini MD on 08/28/2024 12:40 PM Normal [facility] Fibrin D-dimer DDU (PPP) [Ma ss/Vol]on 08-28-2024 D DIMER 5157 ng/mL DDU High <255 [facility] Comment on above: Result Comment: Results [...] Performed By: #### C BCA, CMP, 2157-6, 84506-9, 58763-8, 12637-9, PINR, 23418-5, 2639-3 #### [facility] ([id number]) [address] [place] [address], [place] [address] MAGNESIUMon 08-28-2024 Magnesium [Mass/Vol] 1.9 mg/dL Normal 1.8-2.6 [facility] Comment on above: Performed By: #### C BCA, CMP, 2156-10, 66779-7, 94010-0, 53822-9, PINR, 38484-2, 2639-3 #### [facility] ([id number]) [address] [place] [address] 25983 Magnesium [Mass/Vol] 2.0 mg/dL Normal 1.8-2.6 [facility] Comment on above: Performed By: #### C BCA, CMP, 2156-10, 84317-1, 44158-4, 07684-3, PINR, 83599-2, 2639-3 #### [facility] ([id number]) [address] [place] [address] 12101 Myoglobin [Mass/Vol]on 08-28 SERUM MYOGLOBIN 1035.9 ng/mL High 14.3-65.8 [facility] Comment on above: Performed By: #### C BCA, CMP, 2156-10, 75824-3, 53626-3, 87057-3, PINR, 04399-7, 2639-3 #### [facility] ([id number]) [address] [place] [address] 46475 SERUM MYOGLOBIN 4039.8 ng/mL High 14.3-65.8 [facility] Comment on above: Performed By: #### C BCA, CMP, 2156-10, 01661-3, 17447-6, 28643-6, PINR, 66322-5, 2639-3 #### [facility] ([id number]) [address] [place] [address] 73600 POTASSIUMon 08-28-2024 Potassium [Moles/Vol] 3.2 mmol/L Low 3.5-5.0 [facility] Comment on above: Performed By: #### C BCA, CMP, 2156-10, 28571-6, 97025-4, 17876-9, PINR, 56074-6, 2639-3 #### [facility] ([id number]) [address] [place] [address] 65297 PROTIME AND INRon 08-28-2024 INR Coag (PPP) [Relative time] 1.3 {INR} High 0.9-1.2 [facility] Comment on above: Performed By: #### C BCA, CMP, 2157-6, 85964-5, 33312-3, 52397-9, PINR, 17016-7, 2639-3 #### [facility] ([id number]) [address] [place] [address] 29262 PT Coag (PPP) [Time] 15.0 s High 9.8-13.2 [facility] Comment on above: Result Comment: NEW REFERENCE RANGE Performed By: #### C BCA, CMP, 2157-6, 90403-7, 94743-5, 84844-4, PINR, 82564-2, 2639-3 #### [facility] ([id number]) [address] [place] [address], [place] [address] SARS/FLU A+B/RSV by NAAT/Mol ecularon 08-28-2024 SARS/FLU [...] operators who are performing tests using either [employer] or [employer] systems and is limited to laboratories that [...] repeat. Fact Sheet for Healthcare Providers: https://www.fda.gov/m edia/430827/download Fact Sheet for Patients: https://www.fda.gov/m edia/597072/download Normal [facility] Comment on above: Performed By: #### C BCA, CMP, 2157-6, 56310-5, 70659-8, 22292-8, PINR, 36014-8, 2639-3 #### [facility] ([id number]) [address] [place] [address], [place] [address] Troponin I.cardiac High sens itivity method [Mass/Vol]on 08-28-2024 3 HOUR TROP I, HIGH SENSITIVITY 42 ng/L High <16 [facility] Comment on above: Result Comment: Elevations of hs-Troponin may be due to causes other than myocardial ischemia. Recommend serial hs-Troponin testing be performed. For the initial evaluation and management of chest pain patients, refer to the algorithms linked below. Emergency Patient: [email or web address]=acaea Inpatient: [email or web address] 5&uh=acaea Performed By: #### C BCA, CMP, 2157-6, 03652-1, 71191-9, 26813-0, PINR, 53372-1, 2639-3 #### [facility] ([id number]) [address] [place] [address] 1 HOUR TROP I, HIGH SENSITIVITY 34 ng/L High <16 [facility] Comment on above: Result Comment: Elevations of hs-Troponin may be due to causes other than myocardial ischemia. Recommend serial hs-Troponin testing be performed. For the initial evaluation and management of chest pain patients, refer to the algorithms linked below. Emergency Patient: [email or web address]=acaea Inpatient: [email or web address] 5&uh=acaea Performed By: #### C BCA, CMP, 2157-6, 86757-2, 91380-3, 86170-6, PINR, 37058-2, 2639-3 #### [facility] ([id number]) [address] [place] [address] TROPONIN I, HIGH SENSITIVITY 29 ng/L High <16 [facility] Comment on above: Result Comment: Elevations of hs-Troponin may be due to causes other than myocardial ischemia. Recommend serial hs-Troponin testing be performed. For the initial evaluation and management of chest pain patients, refer to the algorithms linked below. Emergency Patient: [email or web address]&uh=acaea Inpatient: [email or web address]&uh=acaea Performed By: #### C BCA, CMP, 2157-6, 27208-7, 90833-8, 75937-0, PINR, 52099-2, 2639-3 #### [facility] ([id number]) [address] [place] [address] XR CHEST 1 VWon 08-28-2024 XR CHEST 1 VW XR CHEST 1 VW Portable chest: HISTORY: Cough and weakness. Single view of the chest was obtained. Cardiac and mediastinal contours are within normal limits. Lungs clear. There is no vascular congestion or effusion. IMPRESSION: Negative exam. Finalized by Gian Gilbert MD on 08/28/2024 10:58 AM Normal [facility] aPTT Coag (PPP) [Time]on aPTT Coag (Bld) [Time] 31 s Normal 26-37 Pr [facility] Comment on above: Result Comment: NEW REFERENCE RANGE Performed By: #### C BCA, CMP, 2157-6, 74589-1, 41789-8, 48188-8, PINR, 55489-5, 2639-3 #### [facility] ([id number]) [address] [place] [address] Urine Cultureon 08-22-2024 Bacteria identified Cx Nom (U) ORGANISM: Proteus mirabilis (O:PROMIR) [place] Count >100,000 Aerobic ROSE Charge (NMIC56) ---- [...] RESISTANT TO ALL B-LACTAM DRUGS. PERFORMED BY: [place] [address] SQL DEVELOPER CLAIRE PATEL M.D. [place] [facility] Comment on above: Performed By: #### C UU #### [address] MM TOMOSYNTHESIS SCREENING B Ion 06-30-2024 [place] [address] Mammography Report Signed Patient: ANUPAMA VASQUEZ MR#: [id number] : 1970 Acct:[id number] Age/Sex: 54 / F ADM Date: 06/30/24 Loc: MAMMO Attending Dr: Fred Gracia NP Ordering Physician: Fred Gracia NP Results: Date of Service: 06/30/24 Follow Up: Procedure(s): MM tomosynthesis screening BI Accession Number(s): [id number] cc: Fred Gracia NP Patient Name: ANUPAMA VASQUEZ MR#: [id number] : 1970 Exam Date: 06/30/2024 Ordering Doctor: [...] throat/lung cancer at age 56. LOCATION: [facility] BREAST COMPOSITION: There are scattered areas of [...] Signed By: 06/30/24 1133 DD/ 1132 TD/TT: Supply Chain Logistics Manager: [facility] Radiology, Radiologist, - 06/30/2024 [place] [address] Mammography Report Signed Patient: ANUPAMA VASQUEZ MR#: [id number] : 1970 Acct:[id number] Age/Sex: 54 / F ADM Date: 06/30/24 Loc: MAMMO Attending Dr: Fred Gracia NP Ordering Physician: Fred Gracia NP Results: Date of Service: 06/30/24 Follow Up: Procedure(s): MM tomosynthesis screening BI Accession Number(s): [id number] cc: Fred Gracia NP Patient Name: ANUPAMA VASQUEZ MR#: [id number] : 1970 Exam Date: 06/30/2024 Ordering Doctor: [...] throat/lung cancer at age 56. LOCATION: [facility] BREAST COMPOSITION: There are scattered areas of [...] Signed By: 06/30/24 1133 DD/ 1132 TD/TT: Supply Chain Logistics Manager: [place] [employer] Radiology Study observation (narrative) [facility] MM TOMOSYNTHESIS SCREENING B IOrdered By: Radiologist Radiology on 06-30-2024 [place] Work Phone: No Panel Informationon 04-27 Alona [...] to verify the correct patient, procedure, equipment, logistics support and site/side marked as required. Patient was prepped and draped in the usual sterile fashion. [facility] XR Shoulder - left 2 Viewson 02-25-2024 Imaging Result: Two views, AP and Lateral, in the office taken today saved to the permanent record shows post surgical change with acromioplasty/partial distal clavulectomy with appropriate coplaning. No acute fracture, dislocation, tumor or infection seen. [facility] Radiology Study observation (narrative) [facility] Main OR Intraoperative Recor don 02-11-2024 Main OR Intraoperative Record Main OR Intraoperative Record IntraOp Document Type FT Summary Primary Physician: Eliazar Brooks DO Finalized Date/Time: 02/11/24 14:09:06 Pt. Name: ANUPAMA VASQUEZ /Sex: 1970 Female Med Rec #: [id number] Physician: Eliazar Brooks DO Financial #: [id number] Pt. Type: A Room/Bed: Admit/Disch: 02/10/24 11:39:41 [...] 2 Entry 3 Case Attendee Cynthia BROWN, ATHLETIC COORDINATOR, Varina Eliazar Brooks DO PROFILER HAND, Marlyn Campuzano Role Performed ATHLETIC COORDINATOR Surgeon - Primary Scrub - Primary Time [...] Attendee Adams Pak Laura C Role Performed Corrections Identification Technician - Primary Scrub - Primary Time In [...] Antibiotic Yes Given Time Out Cynthia DNP, ATHLETIC COORDINATOR, Bhatt Time Out Complete 02/10/24 14:35:00 Participants [...] and tissue Entry 1 Skin Integrity Intact, [place], Warm, & Skin Abnormality No Dry Outcomes Met? Yes Last Modified By: Adams Pak 02/10/24 15:02:50 Post-Care Text: The patient is free from signs and symptoms of injury caused by extraneous objects Patient Positioning FT Pre-Care Text: Identifies physical alterations that require additional precautions for procedure-specific positioning, verifies presence of prosthetics (more content not included)... Normal [facility] Operative Reporton Operative Report Operative Report SURGERY DATE: 02/10/2024 CHANNEL REBUILDER: Marlyn Kate C.F.A. PREOPERATIVE DIAGNOSIS: Left shoulder [...] a lateral portal incision utilizing a 90-degree [place] wand as well as 5.0 bone cutter, [...] Vicryl suture closed the subcutaneous tissues, and dariana were applied. Bacitracin, Adaptic, and well-padded sterile soft dressing were applied. UltraSling was provided from our office. The patient was awakened from anesthesia and transferred to the Recovery Room in stable and satisfactory condition. CASE: Clean and elective COUNTS: Sponge and needle count correct SPECIMEN: None PATIENT CONDITION: Satisfactory Eliazar Brooks D.O. ca Dictated: 02/10/2024 [id number] Transcribed: 02/10/2024 [facility] Comment on above: Result Comment: Elec tronically [...] appointment Call for any problems. Where: [address] [place] [address]- [facility] (1) Medications What How Much [...] needed for shoulder surgical pain. Pickup at [facility] Unchanged ergocalciferol (Vitamin D) 1,200 International [...] bedtime) as needed for Sleep Pharmacy Information [facility]: [address] [place], [place] [phone] Test Results No qualifying data available. Allergies No Known Allergies Problems Ongoing - Any problem that you are currently receiving treatment for. Menopause Mini stroke MS - Multiple sclerosis Smoker Education Materials [place], [place] [facility] AFTER YOUR SHOULDER ARTHROSCOPY [...] have any (more content not included)... Normal [facility] Comment on above: Result Comment: Elec tronically Signed By: Aime ROAS, Brigida Lantigua\.br\Date and Time Signed: 02/10/24 15:46 EDT Main OR PACU I Recordon 01-19 Main OR PACU I Record Main OR PACU I Rec ord PACU Phase I Document Type FT Summary Primary Physician: Eliazar Brooks DO Finalized Date/Time: 02/10/24 16:23:54 Pt. Name: ANUPAMA VASQUEZ/Sex: 1970 Female Med Rec #: [id number] Physician: Eliazar Brooks DO Financial #: [id number] Pt. Type: A Room/Bed: 01/18 Admit/Disch: 02/10/24 [...] By: Meera Rose RN 02/10/24 16:[address] [facility] Main OR PACU II Recordon Main OR PACU II Record Main OR PACU II Record PACU Phase II Document Type FT Summary Primary Physician: Eliazar Brooks DO Finalized Date/Time: 02/10/24 18:07:34 Pt. Name: ANUPAMA VASQUEZ/Sex: 1970 Female Med Rec #: [id number] Physician: Eliazar Brooks DO Financial #: [id number] Pt. Type: A Room/Bed: Admit/Disch: 02/10/24 11:39:41 [...] Signed By: Sherron Deleon RN 02/10/24 18:07 [facility] Main OR Preoperative Recordo n 02-10-2024 Main OR Preoperative Record Main OR Preoperative Record PreOp Document Type FT Summary Primary Physician: Eliazar Brooks DO Finalized Date/Time: 02/10/24 15:51:36 Pt. Name: ANUPAMA VASQUEZ /Sex: 1970 Female Med Rec #: [id number] Physician: Eliazar Brooks DO Financial #: [id number] Pt. Type: A Room/Bed: Admit/Disch: 02/10/24 11:39:41 [...] 02/10/24 14:59 Adams Pak 02/10/24 15:[address] [facility] Proceduralon 02-10-2024 Procedural Procedural Patient: ANUPAMA [...] Using maximal sterile barrier technique per current [facility] guidelines including hand hygeine, Guidance [...] Cynthia CRNA under Dr Vega's supervision.. Normal [facility] Inpatient Patient Summaryon 02-06-2024 Inpatient Patient Summary Inpatient Patient Summary [address] [address] [facility] Clinical Discharge Instructions PERSON INFORMATION Name: ANUPAMA VASQUEZ [facility]#:[id number] PHYSICIANS Admitting Physician: Eliazar Brooks DO Attending Physician: Eliazar Brooks DO PCP: ROCK CESPEDES, FRANCES L Discharge Diagnosis: Impingement of left shoulder Comment: PATIENT EDUCATION INFORMATION Instructions: Cecilia - After Your Shoulder Arthroscopy (Revised 06/17/14) (CUSTOM) Medication Leaflets: Follow up: With: Address: When: Eliazar Brooks [address] [place] [address] [place] (1) Comments: Keep scheduled appointment Type Location Start [facility] Surgery [facility] Surgical Services 02/10/2024 2:30 PM 02/10/2024 [...] Mouth 2 times a day. Comment: Normal [facility] Outpatient Surgery Discharge Instructionon 02-06-2024 Outpatient Surgery Discharge Instruction Outpatient Surgery Discharge Instruction [place] [id number] Patient Discharge Instructions PERSON INFORMATION Name: PEDRORADHAANUPAMA [...] Follow up: With: Address: When: Eliazar Brooks [address] [place] [id number] Business (1) Comments: Keep scheduled appointment Type Location Start [facility] Surgery [facility] 02/10/2024 2:30 PM 02/10/2024 [...] to serve you. Thank you for choosing [facility] HERE ARE THE MEDICATION CHANGES THAT [...] times a day. PATIENT EDUCATION INFORMATION Instructions: [place], [place] [facility] AFTER YOUR SHOULDER ARTHROSCOPY [...] medication as (more content not included)... Normal [facility] XR Chest 2 Viewson 4 XR [...] mGy = . DAP = . Normal [facility] BMPon 02-05-2024 Anion gap [Moles/Vol] 11 mmol/L Normal 6-16 [facility] Comment on above: Performed By: #### 2 [id number] #### [facility] Laboratory [address] [place] [address] Calcium [Mass/Vol] 9.4 mg/dL Normal 8.9-11.[address] [facility] Comment on above: Performed By: #### 2 987285 #### [facility] [address] [place] [address] Chloride [Moles/Vol] 104 mmol/L Normal 101-111 [facility] Comment on above: Performed By: #### 2 688687 #### [facility] [address] [place] [address] CO2 [Moles/Vol] 31 mmol/L Normal 21-31 [facility] Comment on above: Performed By: #### 2 556198 #### [facility] [address] [place] [address] Creatinine [Mass/Vol] 0.9 mg/dL Normal 0.5-1.3 [facility] Comment on above: Performed By: #### 2 190893 #### [facility] [address] [place] [address] Glucose [Mass/Vol] 93 mg/dL Normal 55-[address] [facility] Comment on above: Performed By: #### 2 693659 #### [facility] [address] [place] [address] Potassium [Moles/Vol] 4.1 mmol/L Normal 3.5-5.3 [facility] Comment on above: Performed By: #### 2 616387 #### [facility] [address] [place] [address] Sodium [Moles/Vol] 142 mmol/L Normal 135-[address] [facility] Comment on above: Performed By: #### 2 357106 #### [facility] [address] [place] [address] Urea nitrogen [Mass/Vol] 11 mg/dL Normal 5-[address] [facility] Comment on above: Performed By: #### 2 990659 #### [facility] [address] [place] [address] Urea nitrogen/Creatinine [Mass ratio] 12 No Units Normal 10-[address] [facility] Comment on above: Performed By: #### 2 982615 #### [facility] [address] [place] [address] CBC w/ Auto Diffon 4 Basophils/100 WBC (Bld) 0.6 % Normal 0.0-2.0 [facility] Comment on above: Performed By: #### 2 437789 #### [facility] [address] [place] [address] Basophils/Leukocytes Auto (Bld) [Pure # fraction] 0.0 E9/L Normal 0.0-0.[address] [facility] Comment on above: Performed By: #### 2 142681 #### [facility] [address] [place] [address] Eosinophils (Bld) [#/Vol] 0.1 E9/L Normal 0.0-0.[address] [facility] Comment on above: Performed By: #### 2 571032 #### [facility] [address] [place] [address] Eosinophils/100 WBC (Bld) 1.2 % Normal 0.0-8.[address] [facility] Comment on above: Performed By: #### 2 165656 #### [facility] [address] [place] [address] Erythrocyte distribution width (RBC) [Ratio] 17.5 % High 10.9-14.[address] [facility] Comment on above: Performed By: #### 2 552894 #### [facility] [address] [place] [address] Hematocrit (Bld) [Volume fraction] 37.9 % Normal 34.0-46.[address] [facility] Comment on above: Performed By: #### 2 154599 #### [facility] [address] [place] [address] Hemoglobin (Bld) [Mass/Vol] 12.6 g/dL Normal 12.0-16.[address] [facility] Comment on above: Performed By: #### 2 205984 #### [facility] [address] [place] [address] Lymphocytes (Bld) [#/Vol] 0.8 E9/L Low 1.0-4.[address] [facility] Comment on above: Performed By: #### 2 784992 #### [facility] [address] [place] [address] Lymphocytes/100 WBC (Bld) 11.1 % Low 14.0-50.[address] [facility] Comment on above: Performed By: #### 2 270619 #### [facility] [address] [place] [address] MCH (RBC) [Entitic mass] 27.8 pg Normal 27.0-34.[address] [facility] Comment on above: Performed By: #### 2 673191 #### [facility] [address] [place] [address] MCHC (RBC) [Mass/Vol] 33.2 g/dL Normal 31.4-36.0 [facility] Comment on above: Performed By: #### 2 245553 #### [facility] [address] [place] [address] MCV (RBC) [Entitic vol] 83.9 fL Normal 80.0-100.0 [facility] Comment on above: Performed By: #### 2 901701 #### [facility] [address] [place] [address] Monocytes (Bld) [#/Vol] 0.8 E9/L Normal 0.2-1.0 [facility] Comment on above: Performed By: #### 2 225503 #### [facility] [address] [place] [address] Neutrophils (Bld) [#/Vol] 5.4 E9/L Normal 2.0-7.[address] [facility] Comment on above: Performed By: #### 2 263263 #### [facility] [address] [place] [address] Neutrophils/100 WBC (Bld) 76.4 % High 36.0-75.[address] [facility] Comment on above: Performed By: #### 2 363466 #### [facility] [address] [place] [address] Platelet 195.0 E9/L Normal 150.0-500. [address] [facility] Comment on above: Performed By: #### 2 697839 #### [facility] [address] [place] [address] Platelet mean volume (Bld) [Entitic vol] 10.4 fL Normal 6.4-10.[address] [facility] Comment on above: Performed By: #### 2 066992 #### [facility] [address] [place] [address] RBC (Bld) [#/Vol] 4.5 E12/L Normal 4.3-5.[address] [facility] Comment on above: Performed By: #### 2 581341 #### [facility] [address] [place] [address] WBC corrected for nucl RBC Auto (Bld) [#/Vol] 7.1 E9/L Normal 4.0-11.0 [facility] Comment on above: Performed By: #### 2 317883 #### [facility] [address] [place] [address] eGFRon 02-05-2024 eGFR 75 mL/min/1.73 m2 Normal >=[address] [facility] Comment on above: Order Comment: Order added by Discern Expert. Performed By: #### 1 [id number] ####[facility] [address] [place] [address] [facility] UA (CLEAN/CATCH) [facility] IF INDICATEon 01-23-2024 BILIRUBIN URINE Negative NEGATIVE [...] So 12-19-2023 RUBINAN Telephone (MARK) ANUPAMA VASQUEZ ([id number]) 1970 F Date Time Provider Department 12/19/23 NURSE ANGLE [facility] [place] FLORES During your visit today, [...] by TEAGAN SHE MONIQUE on 12/19/23 Normal [facility] MR SHOULDER LEFT WO IV CONTR [...] 7-8 years ago So 08-21-2023 CNPN Telephone (NEMDrAvailableN) ANUPAMA VASQUEZ ([id number]) 1970 F Date Time Provider Department 08/21/23 JESSICA CLARKE During your visit today, we recorded the following information about you: Renuka Ellison 08/21/2023 4:19 PM Signed [place] Call Name of caller : Anupama Vasquez Relationship to patient: Self Return call phone number : [phone] Reason for call : Other : Brief [...] of spine [M48.02] Order(s):CONSULT TO SPINE SURGERY [[id number]] Order #: [id number]: 1 FUTURE Prescriptions as of 08/22/2023 - [...] Encounter Status:Closed by ELIZABETH VICTORIA on 08/22/23 [facility] So 07-15-2023 [facility] Telephone ([facility]) ANUPAMA VASQUEZ ([id number]) 1970 F Date Time Provider Department 07/15/23 JESSICA CLARKE [facility] During your visit today, we recorded the [...] since c-spine MRI was completed locally outside [facility] in April. Orders already placed Elizabeth Victoria, RN 07/16/2023 2:21 PM Signed Called patient, no answer. Message left to return call to office when able. MOE Spencer Megan A, RN 07/17/2023 9:04 AM Signed Called patient, no answer. Message left indicating Telx message would be sent with reason for [...] sclerosis (HCC) [G35] Order(s):MRI BRAIN WO/W IVCON [[id number]] Order #: [id number] FUTURE iv contrast (will be provided with [...] Encounter Status:Closed by ELIZABETH VICTORIA on 07/17/23 [facility] CNOVon 07-10-2023 CNOV Office Visit (PAINLN ) ANUPAMA VASQUEZ ([id number]) 1970 F Date Time Provider Department 07/10/23 [...] for internal providers or letter via the [employer] Postal Service for external providers. SUBJECTIVE: Anupama Vasquez a 53 year old presents to [facility] Pain Management Department, accompanied by self [...] (MS) PT several years ago (+) relief [facility] Alcohol Abuse - No Drug [...] No history of dysuria, frequency or incontinence PROFILER HAND: Negative for abnormal vaginal bleeding, abnormal vaginal discharge MUSCULOSKELETAL: Negative for joint pain or swelling, back pain or musc (more content not included)... Normal [facility] CBC W Auto Differential pane l (Bld)on 05-22-2023 Basophils (Bld) [#/Vol] 0.05 10*3/uL Normal <0.11 [facility] Comment on above: Order Comment: Speci men Type: BLOOD SPECIMENOrdering Facility: [facility] Address: [address] [place] [address] Performed By: #### 5 7021-8 ####[facility] LABCLIA [id number] [place] [address] [place] Basophils/100 WBC (Bld) 0.5 % Normal [facility] Comment on above: Order Comment: Speci men Type: BLOOD SPECIMENOrdering Facility: [facility] Address: [address] [place] [address] Performed By: #### 5 7021-8 ####[facility] LABCLIA [id number] [place] [address] [place] Differential cell count method Nom (Bld) Auto Normal [facility] Comment on above: Order Comment: Speci men Type: BLOOD SPECIMENOrdering Facility: [facility] Address: [address] [place] [address] Performed By: #### 5 7021-8 ####[facility] LABCLIA [id number] [place] [address] [place] Eosinophils (Bld) [#/Vol] 0.19 10*3/uL Normal <0.46 [facility] Comment on above: Order Comment: Speci men Type: BLOOD SPECIMENOrdering Facility: [facility] Address: [address] [place] [address] Performed By: #### 5 7021-8 ####[facility] LABCLIA [id number] [place] [address] [place] Eosinophils/100 WBC (Bld) 2.1 % Normal [facility] Comment on above: Order Comment: Speci men Type: BLOOD SPECIMENOrdering Facility: [facility] Address: [address] [place] [address] Performed By: #### 5 7021-8 ####[facility] LABCLIA [id number] [place] [address] [place] Erythrocyte distribution width (RBC) [Ratio] 15.5 % High 11.5-15.0 [facility] Comment on above: Order Comment: Speci men Type: BLOOD SPECIMENOrdering Facility: [facility] Address: [address] [place] [address] Performed By: #### 5 7021-8 ####[facility] LABCLIA [id number] [place] [address] [place] Hematocrit (Bld) [Volume fraction] 42.1 % Normal 36.0-46.0 [facility] Comment on above: Order Comment: Speci men Type: BLOOD SPECIMENOrdering Facility: [facility] Address: [address] [place] [address] Performed By: #### 5 7021-8 ####[facility] LABIA [id number] [place] [address] [place] Hemoglobin (Bld) [Mass/Vol] 12.9 g/dL Normal 11.5-15.5 [facility] Comment on above: Order Comment: Speci men Type: BLOOD SPECIMENOrdering Facility: [facility] Address: [address] [place] [address] Performed By: #### 5 7021-8 ####[facility] LABIA [id number] [place] [address] [place] Immature granulocytes (Bld) [#/Vol] 0.04 10*3/uL Normal <0.10 [facility] Comment on above: Order Comment: Speci men Type: BLOOD SPECIMENOrdering Facility: [facility] Address: [address] [place] [address] Performed By: #### 5 7021-8 ####[facility] LABCLIA [id number] [place] [address] [place] Immature granulocytes/100 WBC (Bld) 0.4 % Normal [facility] Comment on above: Order Comment: Speci men Type: BLOOD SPECIMENOrdering Facility: [facility] Address: [address] [place] [address] Performed By: #### 5 7021-8 ####[facility] LABCLIA [id number] [place] [address] [place] Lymphocytes (Bld) [#/Vol] 0.82 10*3/uL Low 1.00-4.00 [facility] Comment on above: Order Comment: Speci men Type: BLOOD SPECIMENOrdering Facility: [facility] Address: [address] [place] [address] Performed By: #### 5 7021-8 ####[facility] LABCLIA [id number] [place] [address] [place] Lymphocytes/100 WBC (Bld) 9.0 % Normal [facility] Comment on above: Order Comment: Speci men Type: BLOOD SPECIMENOrdering Facility: [facility] Address: [address] [place] [address] Performed By: #### 5 7021-8 ####[facility] LABCLIA [id number] [place] [address] [place] MCH (RBC) [Entitic mass] 26.9 pg Normal 26.0-34.0 [facility] Comment on above: Order Comment: Speci men Type: BLOOD SPECIMENOrdering Facility: [facility] Address: [address] [place] [address] Performed By: #### 5 7021-8 ####[facility] LABCLIA [id number] [place] [address] [place] MCHC (RBC) [Mass/Vol] 30.6 g/dL Normal 30.5-36.0 [facility] Comment on above: Order Comment: Speci men Type: BLOOD SPECIMENOrdering Facility: [facility] Address: [address] [place] [address] Performed By: #### 5 7021-8 ####[facility] LABCLIA [id number] [place] [address] [place] MCV (RBC) [Entitic vol] 87.9 fL Normal 80.0-100.0 [facility] Comment on above: Order Comment: Speci men Type: BLOOD SPECIMENOrdering Facility: [facility] Address: [address] [place] [address] Performed By: #### 5 7021-8 ####[facility] LABCLIA [id number] [place] [address] [place] Monocytes (Bld) [#/Vol] 0.93 10*3/uL High <0.87 [facility] Comment on above: Order Comment: Speci men Type: BLOOD SPECIMENOrdering Facility: [facility] Address: [address] [place] [address] Performed By: #### 5 7021-8 ####[facility] LABCLIA [id number] [place] [address] [place] Monocytes/100 WBC (Bld) 10.2 % Normal [facility] Comment on above: Order Comment: Speci men Type: BLOOD SPECIMENOrdering Facility: [facility] Address: [address] [place] [address] Performed By: #### 5 7021-8 ####[facility] LABCLIA [id number] [place] [address] [place] Neutrophils (Bld) [#/Vol] 7.07 10*3/uL Normal 1.45-7.50 [facility] Comment on above: Order Comment: Speci men Type: BLOOD SPECIMENOrdering Facility: [facility] Address: [address] [place] [address] Performed By: #### 5 7021-8 ####[facility] LABCLIA [id number] [place] [address] [place] Neutrophils/100 WBC (Bld) 77.8 % Normal [facility] Comment on above: Order Comment: Speci men Type: BLOOD SPECIMENOrdering Facility: [facility] Address: [address] [place] [address] Performed By: #### 5 7021-8 ####[facility] LABCLIA [id number] [place] [address] [place] Nucleated RBC (Bld) [#/Vol] 10*3/uL Normal <0.01 [facility] Comment on above: Order Comment: Speci men Type: BLOOD SPECIMENOrdering Facility: [facility] Address: [address] [place] [address] Performed By: #### 5 7021-8 ####[facility] LABCLIA [id number] [place] [address] [place] Nucleated RBC/100 WBC (Bld) [Ratio] 0.0 /100 WBC Normal [facility] Comment on above: Order Comment: Speci men Type: BLOOD SPECIMENOrdering Facility: [facility] Address: [address] [place] [address] Performed By: #### 5 7021-8 ####[facility] LABIA [id number] [place] [address] [place] Platelet mean volume (Bld) [Entitic vol] 12.4 fL Normal 9.0-12.7 [facility] Comment on above: Order Comment: Speci men Type: BLOOD SPECIMENOrdering Facility: [facility] Address: [address] [place] [address] Performed By: #### 5 7021-8 ####[facility] [facility] [id number] [place] [address] [place] Platelets (Bld) [#/Vol] 208 10*3/uL Normal 150-400 [facility] Comment on above: Order Comment: Speci men Type: BLOOD SPECIMENOrdering Facility: [facility] Address: [address] [place] [address] Performed By: #### 5 7021-8 ####[facility] LABCLIA [id number] [place] [address] [place] RBC (Bld) [#/Vol] 4.79 10*6/uL Normal 3.90-5.20 [facility] Comment on above: Order Comment: Speci men Type: BLOOD SPECIMENOrdering Facility: [facility] Address: [address] [place] [address] Performed By: #### 5 7021-8 ####[facility] LABCLIA [id number] [place] [address] [place] WBC (Bld) [#/Vol] 9.10 10*3/uL Normal 3.70-11.00 [facility] Comment on above: Order Comment: Speci men Type: BLOOD SPECIMENOrdering Facility: [facility] Address: [address] [place] [address] Performed By: #### 5 7021-8 ####[facility] LABCLIA [id number] [place] [address] [place] CD19 ABSOLUTE COUNTon 2023 CD3-CD19+ cells (Bld) [#/Vol] 219 cells/uL Normal 75-660 [facility] Comment on above: Order Comment: Speci men Type: BLOOD SPECIMENOrdering Facility: [facility] Address: [address] [place] [address] Performed By: #### A BS19 ####[facility] LABCLIA [id number] [place] [address] [place] CD3-CD19+ cells/100 cells (Bld) 23 % High 5-22 [facility] Comment on above: Order Comment: Speci men Type: BLOOD SPECIMENOrdering Facility: [facility] Address: [address] [place] [address] Performed By: #### A BS19 ####[facility] LABCLIA [id number] [place] [address] [place] Lymphocytes/100 WBC FC (Bld) Normal [facility] Comment on above: Order Comment: Speci men Type: BLOOD SPECIMENOrdering Facility: [facility] Address: [address] [place] [address] Performed By: #### A BS19 ####[facility] LABALIYA [id number] [facility] [id number] [id number] [facility] CNOVon 05-22-2023 CNOV Office Visit (NTLORA ) ANUPAMA VASQUEZ ([id number]) 1970 F Date Time Provider Department 05/22/23 [...] her tubes tied. Referring Provider: SARTHAK ESCOBAR [[id number]] Allergies As of Date: 05/22/2023 (No Known Allergies) Date Reviewed: 10/11/2022 Reviewed by: Maryam Cabrera, RN - Fully Assessed Primary Visit Diagnosis:Multiple sclerosis (HCC) [G35] Other Visit Diagnosis:Multiple sclerosis, relapsing-remitting (HCC) [G35] Order(s):TREATMENT PARAMETER-NOT NEEDED [[id number]] Order #: [id number]: 1 BCN CD20 NURSING COMMUNICATION [[id number]] Order #: [id number]: 1 BCN NURSING COMMUNICATION [[id number]] Order #: [id number]: 1 CD19 ABSOLUTE COUNT [SQABS19] Order #: [id number] FUTURE [] methylPREDNISolone sod succinate(PF) 100 mg injection (SOLU-Medrol)Disp: Rfl: [] acetaminophen 1,000 mg tab(s) (TYLENOL)Disp: Rfl: [] diphenhydrAMINE 50 mg (BENADRYL)Disp: Rfl: [] ocrelizumab 600 mg in NaCl 0.9% 500 mL (OCREVUS)Disp: Rfl: CBC + DIFF [SQCBCDIF] Order #: [id number]. #:[id number] COMP METABOLIC PANEL [SQCMP] Order #: [id number]. #:[id number] IGG [SQIGG] Order #: [id number]. #:[id number] IGM [SQIGM] Order #: [id number]. #:[id number] CD19 ABSOLUTE COUNT [SQABS19] Order #: [id number]. #:[id number] Prescriptions as of 05/23/2023 - lisinopril (ZESTRIL) [...] by SHE BRAND on 05/22/23 Normal [facility] metabolic 2000 panelon 05-22-2023 Albumin [Mass/Vol] 4.0 g/dL Normal 3.9-4.9 [facility] Comment on above: Order Comment: Speci men Type: BLOOD SPECIMENOrdering Facility: [facility] Address: [address] [place] [address] Performed By: #### 2 4323-8 ####[facility] LABCLIA [id number] [place] [address] [place] ALP [Catalytic activity/Vol] 90 U/L Normal 34-123 [facility] Comment on above: Order Comment: Speci men Type: BLOOD SPECIMENOrdering Facility: [facility] Address: [address] [place] [address] Performed By: #### 2 4323-8 ####[facility] LABCLIA [id number] [place] [address] [place] ALT [Catalytic activity/Vol] 23 U/L Normal 7-38 [facility] Comment on above: Order Comment: Speci men Type: BLOOD SPECIMENOrdering Facility: [facility] Address: [address] [place] [address] Performed By: #### 2 4323-8 ####[facility] LABCLIA [id number] [place] [address] [place] Anion gap [Moles/Vol] 13 mmol/L Normal 9-18 [facility] Comment on above: Order Comment: Speci men Type: BLOOD SPECIMENOrdering Facility: [facility] Address: [address] [place] [address] Performed By: #### 2 4323-8 ####[facility] LABCLIA [id number] [place] [address] [place] AST [Catalytic activity/Vol] 25 U/L Normal 13-35 [facility] Comment on above: Order Comment: Speci men Type: BLOOD SPECIMENOrdering Facility: [facility] Address: [address] [place] [address] Performed By: #### 2 4323-8 ####[facility] LABCLIA [id number] [place] [address] [place] Bilirubin [Mass/Vol] 0.3 mg/dL Normal 0.2-1.3 [facility] Comment on above: Order Comment: Speci men Type: BLOOD SPECIMENOrdering Facility: [facility] Address: [address] [place] [address] Performed By: #### 2 4323-8 ####[facility] LABCLIA [id number] [place] [address] [place] Calcium [Mass/Vol] 9.4 mg/dL Normal 8.5-10.2 [facility] Comment on above: Order Comment: Speci men Type: BLOOD SPECIMENOrdering Facility: [facility] Address: [address] [place] [address] Performed By: #### 2 4323-8 ####[facility] LABCLIA [id number] [place] [address] [place] Chloride [Moles/Vol] 103 mmol/L Normal 97-105 [facility] Comment on above: Order Comment: Speci men Type: BLOOD SPECIMENOrdering Facility: [facility] Address: [address] [place] [address] Performed By: #### 2 4323-8 ####[facility] LABCLIA [id number] [place] [address] [place] CO2 [Moles/Vol] 27 mmol/L Normal 22-30 [facility] Comment on above: Order Comment: Speci men Type: BLOOD SPECIMENOrdering Facility: [facility] Address: [address] [place] [address] Performed By: #### 2 4323-8 ####[facility] LABCLIA [id number] [place] [address] [place] Creatinine [Mass/Vol] 1.04 mg/dL High 0.58-0.96 [facility] Comment on above: Order Comment: Rebeca ruelas Type: BLOOD SPECIMENOrdering Facility: [facility] Address: [address] [place] [address] Performed By: #### 2 4323-8 ####[facility] LABCLIA [id number] [place] [address] [place] Creatinine and Glomerular filtration rate.predicted panel (S/P/Bld) 64 mL/min/1.73m??? Normal >=60 [facility] Comment on above: Order Comment: Rebeca ruelas Type: BLOOD SPECIMENOrdering Facility: [facility] Address: [address] [place] [address] Result Comment: Karyn mated Glomerular Filtration Rate [...] actual GFR. Performed By: #### 2 4323-8 ####[facility] LABCLIA [id number] [place] [address] [place] Glucose [Mass/Vol] 88 mg/dL Normal 74-99 [facility] Comment on above: Order Comment: Rebeca ruelas Type: BLOOD SPECIMENOrdering Facility: [facility] Address: [address] [place] [address] Result Comment: The [place] [employer] (ADA) provides guidance for cutoff [...] Standards of Medical Care in Diabetes 2016, [place] [employer]. Diabetes Care. 2016.39(Suppl 1). Performed By: #### 2 4323-8 ####[facility] LABCLIA [id number] [place] [address] [place] Potassium [Moles/Vol] 3.7 mmol/L Normal 3.7-5.1 [facility] Comment on above: Order Comment: Speci men Type: BLOOD SPECIMENOrdering Facility: [facility] Address: [address] [place] [address] Performed By: #### 2 4323-8 ####[facility] LABCLIA [id number] [place] [address] [place] Protein [Mass/Vol] 7.1 g/dL Normal 6.3-8.0 [facility] Comment on above: Order Comment: Speci men Type: BLOOD SPECIMENOrdering Facility: [facility] Address: [address] [place] [address] Performed By: #### 2 4323-8 ####[facility]IA [id number] [place] [address] [place] Sodium [Moles/Vol] 143 mmol/L Normal 136-144 [facility] Comment on above: Order Comment: Speci men Type: BLOOD SPECIMENOrdering Facility: [facility] Address: [address] [place] [address] Performed By: #### 2 4323-8 ####[facility] LABCLIA [id number] [place] [address] [place] Urea nitrogen [Mass/Vol] 17 mg/dL Normal 7-21 [facility] Comment on above: Order Comment: Speci men Type: BLOOD SPECIMENOrdering Facility: [facility] Address: [address] [place] [address] Performed By: #### 2 4323-8 ####[facility] LABCLIA [id number] [place] [address] [place] IgG SerPl-mCncon 05-22-2023 IgG [Mass/Vol] 954 mg/dL Normal 700-1600 [facility] Comment on above: Order Comment: Speci men Type: BLOOD SPECIMENOrdering Facility: [facility] Address: [address] [place] [address] Performed By: #### 2 465-3, 2472-9 ####[facility] LABCLIA [id number] [address] [place] IgM SerPl-mCncon 05-22-2023 IgM [Mass/Vol] 74 mg/dL Normal 40-230 [facility] Comment on above: Order Comment: Speci men Type: BLOOD SPECIMENOrdering Facility: [facility] Address: [address] [place] [address] Performed By: #### 2 465-3, 2472-9 ####[facility] LABCLIA [id number] [address] [place] CNPNon 05-14-2023 CNPN Telephone (NIQ) ANUPAMA VASQUEZ ([id number]) 1970 F Date Time Provider Department 05/14/23 [...] Status:Closed by MICHELLE LUJAN on 05/14/23 Normal [facility] PREG HCG QUALon 09-21-2022 , QUAL Negative Normal NEGATIVE [facility] Comment on above: Performed By: #### P REG #### [facility] [address] [place] [address] Dr. Angel Li IMMUNOGLOBULIN IGG QUANTITAT IVEon 06-06-2022 Immunoglobulin G, Qn, Serum 1032 mg/dL Normal 586-1602 [facility] Comment on above: Performed By: #### I MIGGQN #### [facility] [address] [place] [address] [address] Angel Li IMMUNOGLOBULIN IGM QUANTITAT IVEon 06-06-2022 Immunoglobulin M, Qn, Serum 46 mg/dL Normal 26-217 [facility] Comment on above: Performed By: #### I MIGMQN #### [facility] [address] [place] [address] Dr. Angel Li CBC AUTO DIFFon 06-05-2022 BASO # 0.0 103/ul Normal 0.0-0.1 [facility] Comment on above: Performed By: #### C BC #### [facility] [address] [place] [address] Dr. Angel Li Basophils/100 WBC (Bld) 0.5 % Normal 0.2-2.0 [facility] Comment on above: Performed By: #### C BC #### [facility] [address] [place] [address] Dr. Angel Li EO # 0.2 103/ul Normal 0.0-0.7 [facility] Comment on above: Performed By: #### C BC #### [facility] [address] [place] [address] Dr. Angel Li Eosinophils/100 WBC (Bld) 2.6 % Normal 0.9-7.0 [facility] Comment on above: Performed By: #### C BC #### [facility] [address] [place] [address] Dr. Angel Li Erythrocyte distribution width (RBC) [Ratio] 14.5 % Normal 11.0-15.0 [facility] Comment on above: Performed By: #### C BC #### [facility] [address] [place] [address] Dr. Angel Li Hematocrit (Bld) [Volume fraction] 36.5 % Normal 36.0-48.0 [facility] Comment on above: Performed By: #### C BC #### [facility] [address] [place] [address] Dr. Angel Li Hemoglobin (Bld) [Mass/Vol] 11.8 g/dL Critically low 12.0-16.0 [facility] Comment on above: Performed By: #### C BC #### [facility] [address] [place] [address] Dr. Angel Li IG # 0.03 10e3/ul Normal 0.00-0.03 [facility] Comment on above: Performed By: #### C BC #### [facility] [address] [place] [address] Dr. Angel Li IG % 0.4 % Normal 0.0-0.5 [facility] Comment on above: Performed By: #### C BC #### [facility] [address] [place] [address] [address] Angel Li LYMPH # 0.8 103/ul Critically low 1.2-3.8 [facility] Comment on above: Performed By: #### C BC #### [facility] [address] [place] [address] [address] Angel Li Lymphocytes/100 WBC (Bld) 9.8 % Critically low 20.5-60.0 [facility] Comment on above: Performed By: #### C BC #### [facility] [address] [place] [address] Dr. Angel Li MANUAL DIFF REQ NO Normal [facility] Comment on above: Performed By: #### C BC #### [facility] [address] [place] [address] Dr. Angel Li MCH (RBC) [Entitic mass] 29.0 pg Normal 26.7-34.0 [facility] Comment on above: Performed By: #### C BC #### [facility] [address] [place] [address] Dr. Angel Li MCHC (RBC) [Mass/Vol] 32.3 g/dL Normal 29.9-35.2 [facility] Comment on above: Performed By: #### C BC #### [facility] [address] [place] [address] Dr. Angel Li MCV (RBC) [Entitic vol] 89.7 fL Normal 81.0-99.0 [facility] Comment on above: Performed By: #### C BC #### [facility] [address] [place] [address] Dr. Angel Li MONO # 1.0 103/ul Critically high 0.3-0.8 [facility] Comment on above: Performed By: #### C BC #### [facility] [address] [place] [address] Dr. Angel Li Monocytes/100 WBC (Bld) 13.0 % Critically high 1.7-12. 0 [facility] Comment on above: Performed By: #### C BC #### [facility] [address] [place] [address] [address] Angel Li NEUT # 5.9 103/ul Normal 1.4-6.5 [facility] Comment on above: Performed By: #### C BC #### [facility] [address] [place] [address] [address] Angel Li Neutrophils/100 WBC (Bld) 73.7 % Normal 43.0-75.0 [facility] Comment on above: Performed By: #### C BC #### [facility] [address] [place] [address] Dr. Angel Li Platelet mean volume (Bld) [Entitic vol] 11.6 fL Normal 9.5-13.5 [facility] Comment on above: Performed By: #### C BC #### [facility] [address] [place] [address] [address] Angel Li PLT 200 103/ul Normal 150-450 [facility] Comment on above: Performed By: #### C BC #### [facility] [address] [place] [address] Dr. Angel Li RBC 4.07 106/ul Critically low 4.20-5.40 [facility] Comment on above: Performed By: #### C BC #### [facility] [address] [place] [address] Dr. Angel Li WBC 8.0 103/ul Normal 4.0-11.0 [facility] Comment on above: Performed By: #### C BC #### [facility] [address] [place] [address] Dr. Angel Li PROF 14(COMP METB)on 023 Albumin [Mass/Vol] 3.4 g/dL Normal 3.4-5.0 [facility] Comment on above: Performed By: #### C MP #### [facility] [address] [place] [address] Dr. Angel Li Albumin/Globulin [Mass ratio] 0.9 {ratio} Normal [facility] Comment on above: Performed By: #### C MP #### [facility] [address] [place] [address] Dr. Angel Li ALP [Catalytic activity/Vol] 122 U/L Critically high 46-116 [facility] Comment on above: Performed By: #### C MP #### [facility] [address] [place] [address] Dr. Angel Li ALT [Catalytic activity/Vol] 35 U/L Normal 14-59 [facility] Comment on above: Performed By: #### C MP #### [facility] [address] [place] [address] Dr. Angel Li Anion gap [Moles/Vol] 9.7 mmol/L Normal [facility] Comment on above: Performed By: #### C MP #### [facility] [address] [place] [address] Dr. Angel Li AST [Catalytic activity/Vol] 32 U/L Normal 15-37 [facility] Comment on above: Performed By: #### C MP #### [facility] [address] [place] [address] Dr. Angel Li Bilirubin [Mass/Vol] 0.4 mg/dL Normal 0.2-1.0 [facility] Comment on above: Performed By: #### C MP #### [facility] [address] [place] [address] Dr. Angel Li Calcium [Mass/Vol] 9.0 mg/dL Normal 8.5-10.1 [facility] Comment on above: Performed By: #### C MP #### [facility] [address] [place] [address] Dr. Angel Li Chloride [Moles/Vol] 103 mmol/L Normal 98-107 [facility] Comment on above: Performed By: #### C MP #### [facility] [address] [place] [address] Dr. Angel Li CO2 [Moles/Vol] 32.3 mmol/L Critically high 21.0-32.0 [facility] Comment on above: Performed By: #### C MP #### [facility] [address] [place] [address] Dr. Angel Li Creatinine [Mass/Vol] 0.97 mg/dL Normal 0.55-1.02 [facility] Comment on above: Performed By: #### C MP #### [facility] [address] [place] [address] [address] Angel Li EGFR-AF MOLDOVAN >60 Normal >=60 [facility] Comment on above: Performed By: #### C MP #### [facility] [address] [place] [address] [address] Angel Li EGFR-NON AF MOLDOVAN =60 Normal >=60 [facility] Comment on above: Performed By: #### C MP #### [facility] [address] [place] [address] [address] Angel Li Globulin (S) [Mass/Vol] 3.7 g/dL Normal [facility] Comment on above: Performed By: #### C MP #### [facility] [address] [place] [address] [address] Angel Li Glucose [Mass/Vol] 87 mg/dL Normal 74-106 [facility] Comment on above: Performed By: #### C MP #### [facility] [address] [place] [address] [address] Angel Li Potassium [Moles/Vol] 4.0 mmol/L Normal 3.5-5.1 [facility] Comment on above: Performed By: #### C MP #### [facility] [address] [place] [address] [address] Angel Li Protein [Mass/Vol] 7.1 g/dL Normal 6.4-8.2 [facility] Comment on above: Performed By: #### C MP #### [facility] [address] [place] [address] [address] Angel Li Sodium [Moles/Vol] 141 mmol/L Normal 136-145 [facility] Comment on above: Performed By: #### C MP #### [facility] [address] [place] [address] [address] Angel Li Urea nitrogen [Mass/Vol] 11.0 mg/dL Normal 7.0-18.0 [facility] Comment on above: Performed By: #### C MP #### [facility] [address] [place] [address] [address] Angel Li Urea nitrogen/Creatinine [Mass ratio] 11.3 mg/mg Normal [facility] Comment on above: Performed By: #### C MP #### [facility] [address] [place] [address] [address] Angel Li PAP ACOG PANEL 2: 30 to 65on 03-13-2022 . . Normal [facility] Comment on above: Result Comment: Perf ormed at: [facility] Performed By: #### 4 [id number] #### [facility] [address] [place] [address] Dr. Angel Li Age Gdln ACOG Testing 30-65 [facility] Comment on above: Performed By: #### 4 [id number] #### [facility] [address] [place] [address] Dr. Angel Li DIAGNOSIS: Comment Normal [facility] Comment on above: Result Comment: NEGA TIVE FOR INTRAEPITHELIAL LESION OR MALIGNANCY. Performed at: [facility] Performed By: #### 4 [id number] #### [facility] [address] [place] [address] [address] Angel Li HPV Aptima Negative Normal [facility] Comment on above: Result Comment: This nucleic acid amplification test detects fourteen high-risk HPV types (16,18,31,33,35,39,45,51,52,56,58,59,66,68) without differentiation. Performed at: =G Performed By: #### 4 [id number] #### [facility] [address] [place] [address] Dr. Angel Li Methodology: Comment [facility] Comment on above: Result Comment: This liquid based ThinPrep(R) pap test was screened with the use of an image guided system. Performed at: [facility] Performed By: #### 4 [id number] #### [facility] [address] [place] [address] Dr. Angel Li Note: Comment Normal [facility] Comment on above: Result Comment: The Pap smear is a screening test designed to aid in the detection of premalignant and malignant conditions of the uterine cervix. It is not a diagnostic procedure and should not be used as the sole means of detecting cervical cancer. Both false-positive and false-negative reports do occur. . Performed at: [facility] Performed By: #### 4 [id number] #### [facility] [address] [place] [address] Dr. Angel Li Performed by: Comment Normal [facility] Comment on above: Result Comment: Shyanne Back, Management Liaison (ASCP) Performed at: [facility] Performed By: #### 4 [id number] #### [facility] [address] [place] [address] Dr. Angel Li Specimen adequacy: Comment Normal [facility] Comment on above: Result Comment: Sati sfactory for evaluation. Endocervical and/or squamous metaplastic cells (endocervical component) are present. Performed at: [facility] Performed By: #### 4 [id number] #### [facility] [address] [place] [address] Dr. Angel Li VAGINITIS/VAGINOSIS DNA PROB Marcelino 03-08-2022 Gracia species Negative Normal Negative [facility] Comment on above: Performed By: #### V AGINT #### [facility] [address] [place] [address] Dr. Angel Li Gardnerella vaginalis Positive Abnormal Negative [facility] Comment on above: Performed By: #### V AGINT #### [facility] [address] [place] [address] Dr. Angel Li Trichomonas vaginalis Negative Normal Negative [facility] Comment on above: Performed By: #### V AGINT #### [facility] [address] [place] [address] Dr. Angel Li BRAIN & CERVICAL SPINE MRI D ISCRETE DATAon 11-14-2021 Brain Enhancing Lesions None [facility] Brain Interval Improvement None [facility] Brain New T2 Lesions [facility] Brain Other Significant MRI Findings None. [facility] Brain Parenchymal Volume Loss None [facility] Brain T2 [place] of Disease Moderate [facility] MRI BRAIN WO/W IVCONon 11-14 [facility] CBC W Auto Differential pane l (Bld)on 09-18-2021 Abs Immature Gran <0.03 <0.10 k/uL [facility] Basophils (Bld) [#/Vol] 0.03 10*3/uL <0.11 k/uL [facility] Basophils/100 WBC (Bld) 0.5 % [facility] Differential cell count method Nom (Bld) Auto [facility] Eosinophils (Bld) [#/Vol] 0.15 10*3/uL <0.46 k/uL [facility] Eosinophils/100 WBC (Bld) 2.4 % [facility] Erythrocyte distribution width (RBC) [Ratio] 14.2 % 11.5 - 15.0 % [facility] Hematocrit (Bld) [Volume fraction] 41.5 % 36.0 - 46.0 % [facility] Hemoglobin (Bld) [Mass/Vol] 12.9 g/dL 11.5 - 15.5 g/dL [facility] Immature Gran % 0.3 % [facility] Lymphocytes (Bld) [#/Vol] 0.60 10*3/uL Low 1.00 - 4.00 k/uL [facility] Lymphocytes/100 WBC (Bld) 9.7 % [facility] MCH (RBC) [Entitic mass] 29.3 pg 26. 0 - 34.0 pg [facility] MCHC (RBC) [Mass/Vol] 31.1 g/dL 30.5 - 36.0 g/dL [facility] MCV (RBC) [Entitic vol] 94.3 fL 80.0 - 100.0 fL [facility] Monocytes (Bld) [#/Vol] 0.74 10*3/uL <0.87 k/uL [facility] Monocytes/100 WBC (Bld) 12.0 % [facility] Neutrophils (Bld) [#/Vol] 4.62 10*3/uL 1.45 - 7.50 k/uL [facility] Neutrophils/100 WBC (Bld) 75.1 % [facility] Nucleated RBC (Bld) [#/Vol] 10*3/uL <0.01 k/uL [facility] Nucleated RBC/100 WBC (Bld) [Ratio] 0.0 /100 WBC [facility] Platelet mean volume (Bld) [Entitic vol] 12.5 fL 9.0 - 12.7 fL [facility] Platelets (Bld) [#/Vol] 181 10*3/uL 150 - 400 k/uL [facility] RBC (Bld) [#/Vol] 4.40 10*6/uL 3.90 - 5.20 m/uL [facility] WBC (Bld) [#/Vol] 6.16 10*3/uL 3.70 - 11.00 k/uL [facility] Comprehensive metabolic 2000 panelon 09-18-2021 Albumin [Mass/Vol] 3.8 g/dL Low 3.9 - 4.9 g/dL [facility] ALP [Catalytic activity/Vol] 114 U/L 34 - 123 U/L [facility] ALT [Catalytic activity/Vol] 16 U/L 7 - 38 U/L [facility] Anion gap [Moles/Vol] 11 mmol/L 9 - 18 mmol/L [facility] AST [Catalytic activity/Vol] 21 U/L 13 - 35 U/L [facility] Bilirubin [Mass/Vol] 0.4 mg/dL 0.2 - 1 .3 mg/dL [facility] Calcium [Mass/Vol] 9.0 mg/dL 8.5 - 10. 2 mg/dL [facility] Chloride [Moles/Vol] 102 mmol/L 97 - 10 5 mmol/L [facility] CO2 [Moles/Vol] 25 mmol/L 22 - 30 mmol/L [facility] Creatinine [Mass/Vol] 0.97 mg/dL High 0.58 - 0.96 mg/dL [facility] Estimated Glomerular Filtration Rate 70 mL/min/1.73m >=60 mL/min/1.7 3m [facility] Glucose [Mass/Vol] 60 mg/dL Low 74 - 99 mg/dL [facility] Potassium [Moles/Vol] 4.0 mmol/L 3.7 - 5.1 mmol/L [facility] Protein [Mass/Vol] 7.0 g/dL 6.3 - 8.0 g/dL [facility] Sodium [Moles/Vol] 138 mmol/L 136 - 144 mmol/L [facility] Urea nitrogen [Mass/Vol] 10 mg/dL 7 - 21 mg/dL [facility] LIPID PANEL BASICon 09-19-19 Cholesterol [Mass/Vol] 142 mg/dL <200 mg/dL [facility] Cholesterol in HDL [Mass/Vol] 39 mg/dL Low >39 mg/dL [facility] Cholesterol in LDL [Mass/Vol] 72 mg/dL <100 mg/dL [facility] Cholesterol in LDL/Cholesterol in HDL [Mass ratio] 1.85 {ratio} <2.54 [facility] Cholesterol in VLDL [Mass/Vol] 31 mg/dL High <30 mg/dL [facility] Cholesterol non HDL [Mass/Vol] 103 mg/dL <130 mg/dL [facility] Cholesterol.total/Choles terol in HDL [Mass ratio] 3.64 {ratio} <5.10 [facility] Fasting Time 14 hours [facility] Triglyceride [Mass/Vol] 157 mg/dL High <150 mg/dL [facility] COVID-19 SOFIAOrdered By: Mague Rosa on 09-01-2021 SARS-CoV+SARS-CoV-2 (COVID-19) Ag IA.rapid Ql (Resp) Negative Negative [facility] Comment on above: This is a duplicate Wilma SARS Antigen (ELAINA) result to be used for statistical tracking purpose only. No Panel InformationOrdered By: Liyah Rosa on 09-01-2021 SARS Antigen (LFIA) [facility] CBC W/AUTO DIFFon 05-07-2017 % NEUTROPHILS [...] molar conc 4.1 mmol/L Normal 3.5-5.4 [facility] [employer] Sodium 144 mmol/L Normal 134-147 [facility] [...] LDL to HDL Ratio 1.7 Normal <3.5 [place] LDL-CHOL, CALCULATED 95 mg/dL Normal <130 [facility] Comment on above: Result Comment: LDL CHOLESTEROL REFERENCE RANGE FOR 0-19 YEARS: DESIRABLE <110 mg/dL, BORDERLINE 110-129, HIGH RISK >130 LDL CHOLESTEROL REFERENCE RANGE FOR ADULTS: DESIRABLE <100 mg/dL, BORDERLINE 130-159, HIGH RISK >160REFERENCE RANGES REVISED 10/28/15 ACCORDING TO NCEP GUIDELINES Triglyceride 107 mg/dL Normal <150 [facility] VLDL-CHOL, CALCULATED 21 mg/dL Normal <30 [facility] TSH WITH FT4 REFLEXon 2016 Thyroid stimulating hormone (TSH) 1.480 uIU/mL Normal 0.40-4.40 [facility] Comment on above: Result Comment: [employer] [address] [place], [place] [address]Laboratory Director: FERMÍN MarinelliIA No. [id number] CAP Accreditation No. [id number] CARDIOPULMONARY REPORT CLDon 12-24-2016 CARDIOPULMONARY REPORT [facility] ([facility]) [address] [place] [address] [place], [place] [address]Verhywo Name: ANUPAMA VASQUEZ Visit ID: [id number] Record #: [id number] : 1970CC: Frances Ro CNP Pulmonary Function [...] seen. Clinical correlation is recommended. Author: CAROL Rao/jerry/[id number] T: 12/24/2016 10:41 cc: Frances Ro CNP Electronically Authenticated and Edited by:Jacki Hess MD On 12/31/2016 09:16 AM EDT [facility] Vital Signs Date Time Vital Sign Value Performing Clinician Facility 09-28-2024 23:34-0400 Diastolic blood pressure 63 mm[Hg] [facility] 09-28-2024 23:34-0400 Heart rate 83 /min [facility] 09-28-2024 23:34-0400 Respiratory rate 15 /min Julio Fernandez MD [facility] 09-28-2024 23:34-0400 Systolic blood pressure 115 mm[Hg] Julio Fernandez MD Work Phone: [facility] 09-28-2024 20:38-0400 Body temperature 98.1 [degF] Julio Fernandez MD Work Phone: [facility] 09-28-2024 20:38-0400 SaO2% (BldA) [Mass fraction] 100 % Julio Fernandez MD Work Phone: [facility] 09-28-2024 05:00-0400 Body mass index (BMI) [Ratio] 40.87 kg/m2 Julio Fernandez MD Work Phone: [facility] 09-28-2024 05:00-0400 Body weight 114.8 kg Julio Fernandez MD Work Phone: [facility] 09-25-2024 01:00-0400 Body height 167.6 cm Julio Fernandez MD Work Phone: [facility] 09-19-2024 03:52-0400 SaO2% (BldA) [Mass fraction] 95 % Julio Fernandez MD Work Phone: [facility] 09-19-2024 03:52-0400 SaO2% (BldA) [Mass fraction] 78 % Julio Fernandez MD Work Phone: [facility] 09-19-2024 03:47-0400 SaO2% (BldA) [Mass fraction] 78 % [facility] Comment on above: Performed By: #### PINR #### [facility] ([facility]) [address] [place] [address] [facility] 09-16-2024 13:14-0400 Body temperature 96.8 [degF] Adonay PHILLIPS Work Phone: [facility] 09-16-2024 13:14-0400 Diastolic blood pressure 85 mm[Hg] Adonay Castillo ON SITE COORDINATOR-FINANCIAL INSTITUTION MANAGER Work Phone: [facility] 09-16-2024 13:14-0400 Heart rate 74 /min Adonay Castillo ON SITE COORDINATOR-FINANCIAL INSTITUTION MANAGER Work Phone: [facility] 09-16-2024 13:14-0400 Systolic blood pressure 147 mm[Hg] Adonay Castillo APRN-FINANCIAL INSTITUTION MANAGER Work Phone: [facility] 08-18-2024 09:18-0400 Body mass index (BMI) [Ratio] 44.96 kg/m2 Fred Bonitaz COMPUTER SYSTEMS SOFTWARE ENGINEER Work Phone: [facility] 08-18-2024 09:18-0400 Body temperature 98.2 [degF] Fred Bonitaz COMPUTER SYSTEMS SOFTWARE ENGINEER Work Phone: [facility] 08-18-2024 09:18-0400 Body weight 122.56 kg Fred Aichholz COMPUTER SYSTEMS SOFTWARE ENGINEER Work Phone: [facility] 08-18-2024 09:18-0400 Diastolic blood pressure 80 mm[Hg] Fred Aichholz COMPUTER SYSTEMS SOFTWARE ENGINEER Work Phone: [facility] 08-18-2024 09:18-0400 Heart rate 98 /min Fred Aichholz COMPUTER SYSTEMS SOFTWARE ENGINEER Work Phone: [facility] 08-18-2024 09:18-0400 Respiratory rate 24 /min Fred Aichholz COMPUTER SYSTEMS SOFTWARE ENGINEER Work Phone: [facility] 08-18-2024 09:18-0400 SaO2% (BldA) [Mass fraction] 95 % Fred Aichholz COMPUTER SYSTEMS SOFTWARE ENGINEER Work Phone: [facility] 08-18-2024 09:18-0400 Systolic blood pressure 110 mm[Hg] Fred Aichholz COMPUTER SYSTEMS SOFTWARE ENGINEER Work Phone: [facility] 06-17-2024 09:33-0500 Body mass index (BMI) [Ratio] 47.09 kg/m2 Sherrie Boone COMPUTER SYSTEMS SOFTWARE ENGINEER Work Phone: [facility] 06-17-2024 09:33-0500 Body temperature 97.7 [degF] Sherrie Boone COMPUTER SYSTEMS SOFTWARE ENGINEER Work Phone: [facility] 06-17-2024 09:33-0500 Body weight 128.37 kg Sherrie Boone COMPUTER SYSTEMS SOFTWARE ENGINEER Work Phone: [facility] 06-17-2024 09:33-0500 Diastolic blood pressure 82 mm[Hg] Sherrie Boone COMPUTER SYSTEMS SOFTWARE ENGINEER Work Phone: [facility] 06-17-2024 09:33-0500 Heart rate 100 /min Sherrie Boone COMPUTER SYSTEMS SOFTWARE ENGINEER Work Phone: [facility] 06-17-2024 09:33-0500 Respiratory rate 16 /min Sherrie Boone COMPUTER SYSTEMS SOFTWARE ENGINEER Work Phone: [facility] 06-17-2024 09:33-0500 SaO2% (BldA) [Mass fraction] 97 % Sherrie Boone COMPUTER SYSTEMS SOFTWARE ENGINEER Work Phone: [facility] 06-17-2024 09:33-0500 Systolic blood pressure 120 mm[Hg] Sherrie Boone COMPUTER SYSTEMS SOFTWARE ENGINEER Work Phone: [facility] 05-18-2024 09:18-0500 Body height 165.1 cm Fred Basil COMPUTER SYSTEMS SOFTWARE ENGINEER Work Phone: [facility] 05-18-2024 09:18-0500 Body mass index (BMI) [Ratio] 46.93 kg/m2 Fred Sounholz COMPUTER SYSTEMS SOFTWARE ENGINEER Work Phone: [facility] 05-18-2024 09:18-0500 Body temperature 98.1 [degF] Fred Bonitaz COMPUTER SYSTEMS SOFTWARE ENGINEER Work Phone: [facility] 05-18-2024 09:18-0500 Body weight 127.91 kg Fred Bonitaz COMPUTER SYSTEMS SOFTWARE ENGINEER Work Phone: [facility] 05-18-2024 09:18-0500 Diastolic blood pressure 90 mm[Hg] Fred Bonitaz COMPUTER SYSTEMS SOFTWARE ENGINEER Work Phone: [facility] 05-18-2024 09:18-0500 Heart rate 81 /min Fred Bonitaz COMPUTER SYSTEMS SOFTWARE ENGINEER Work Phone: [facility] 05-18-2024 09:18-0500 Respiratory rate 19 /min Fred Bonitaz COMPUTER SYSTEMS SOFTWARE ENGINEER Work Phone: [facility] 05-18-2024 09:18-0500 SaO2% (BldA) [Mass fraction] 95 % Fred Bonitaz COMPUTER SYSTEMS SOFTWARE ENGINEER Work Phone: [facility] 05-18-2024 09:18-0500 Systolic blood pressure 144 mm[Hg] Fred Sonuholz COMPUTER SYSTEMS SOFTWARE ENGINEER Work Phone: [facility] 04-27-2024 09:03-0500 Body height 165.1 cm [facility] Work Phone: [facility] 04-27-2024 09:03-0500 Body mass index (BMI) [Ratio] 46.43 kg/m2 [facility] Work Phone: [facility] 04-27-2024 09:03-0500 Body weight 126.55 kg [facility] Work Phone: [facility] 03-05-2024 10:04-0400 Body height 165.1 cm Fred Bonitaz COMPUTER SYSTEMS SOFTWARE ENGINEER Work Phone: [facility] 03-05-2024 10:04-0400 Body mass index (BMI) [Ratio] 46.49 kg/m2 Ferd Monikahholz COMPUTER SYSTEMS SOFTWARE ENGINEER Work Phone: [facility] 03-05-2024 10:04-0400 Body temperature 97.59 [degF] Fred Bonitaz COMPUTER SYSTEMS SOFTWARE ENGINEER Work Phone: [facility] 03-05-2024 10:04-0400 Body weight 126.73 kg Fred Monikahholz COMPUTER SYSTEMS SOFTWARE ENGINEER Work Phone: [facility] 03-05-2024 10:04-0400 Diastolic blood pressure 82 mm[Hg] Fredvirginia Tellezholz COMPUTER SYSTEMS SOFTWARE ENGINEER Work Phone: [facility] 03-05-2024 10:04-0400 Heart rate 82 /min Fredvirginia Tellezholz COMPUTER SYSTEMS SOFTWARE ENGINEER Work Phone: [facility] 03-05-2024 10:04-0400 Respiratory rate 18 /min Fred Sonuholz COMPUTER SYSTEMS SOFTWARE ENGINEER Work Phone: [facility] 03-05-2024 10:04-0400 SaO2% (BldA) [Mass fraction] 97 % Fred Sonuholz COMPUTER SYSTEMS SOFTWARE ENGINEER Work Phone: [facility] 03-05-2024 10:04-0400 Systolic blood pressure 112 mm[Hg] Fred Aichholz COMPUTER SYSTEMS SOFTWARE ENGINEER Work Phone: [facility] 02-25-2024 08:32-0400 Body height 165.1 cm Eliazar Brooks DO Work Phone: [facility] 02-25-2024 08:32-0400 Body mass index (BMI) [Ratio] 48.09 kg/m2 Eliazar Brooks DO Work Phone: [facility] 02-25-2024 08:32-0400 Body weight 131.09 kg Eliazar Brooks DO Work Phone: [facility] 02-10-2024 17:11-0400 Heart rate 82 /min Eliazar Brooks [facility] 02-10-2024 17:11-0400 SaO2% (BldA) [Mass fraction] 94 % Eliazar Brooks [facility] 02-10-2024 17:11-0400 Diastolic blood pressure 89 mm[Hg] Eliazar Brooks [facility] 02-10-2024 17:11-0400 Mean blood pressure 109 mm[Hg] Eliazar Brooks [facility] 02-10-2024 17:11-0400 Systolic blood pressure 148 mm[Hg] Eliazar Brooks [facility] 02-10-2024 17:11-0400 Respiratory rate 16 /min Eliazar Cecilia [facility] 02-10-2024 17:11-0400 Body temperature 98.24 [degF] Eliazar Brooks [facility] 02-10-2024 16:06-0400 Heart rate 81 /min Eliazar Brooks [facility] 02-10-2024 16:06-0400 SaO2% (BldA) [Mass fraction] 99 % Eliazar Brooks [facility] 02-10-2024 16:06-0400 Diastolic blood pressure 81 mm[Hg] Eliazar Brooks [facility] 02-10-2024 16:06-0400 Mean blood pressure 98 mm[Hg] Eliazar Brooks [facility] 02-10-2024 16:06-0400 Systolic blood pressure 134 mm[Hg] Eliazar Brooks [facility] 02-10-2024 16:05-0400 Respiratory rate 16 /min Eliazar Brooks [facility] 02-10-2024 16:00-0400 Body temperature 97.52 [degF] Eliazar Brooks [facility] 02-10-2024 16:00-0400 Respiratory rate 22 /min Eliazar Brooks [facility] 02-10-2024 16:00-0400 SaO2% (BldA) [Mass fraction] 95 % Eliazar Brooks [facility] 02-10-2024 16:00-0400 Systolic blood pressure 139 mm[Hg] Eliazar Brooks [facility] 02-10-2024 15:50-0400 Mean blood pressure 106 mm[Hg] Eliazar Brooks [facility] 02-10-2024 15:50-0400 Respiratory rate 24 /min Eliazar Brooks [facility] 02-10-2024 15:45-0400 Respiratory rate 9 /min Eliazar Brooks [facility] 02-10-2024 15:37-0400 Blood Pressure Location Eliazar Brooks [facility] 02-10-2024 15:37-0400 Body temperature 97.7 [degF] Eliazar Brooks [facility] 02-10-2024 15:30-0400 Respiratory rate 18 /min Eliazar Brooks [facility] 02-10-2024 12:04-0400 Blood Pressure Location Eliazar Brooks [facility] 02-10-2024 12:04-0400 Mean blood pressure 100 mm[Hg] Eliazar Brooks [facility] 02-10-2024 12:04-0400 Heart rate 94 /min Eliazar Brooks [facility] 02-10-2024 12:03-0400 Body temperature 97.88 [degF] Eliazar Brooks [facility] 02-10-2024 12:03-0400 Blood Pressure Location Eliazar Brooks [facility] 02-03-2024 14:28-0400 Body height 165.1 cm Fred Gracia COMPUTER SYSTEMS SOFTWARE ENGINEER Work Phone: [facility] 02-03-2024 14:28-0400 Body mass index (BMI) [Ratio] 48.09 kg/m2 Fred Gracia COMPUTER SYSTEMS SOFTWARE ENGINEER Work Phone: [facility] 02-03-2024 14:28-0400 Body temperature 98.49 [degF] Fred Gracia COMPUTER SYSTEMS SOFTWARE ENGINEER Work Phone: [facility] 02-03-2024 14:28-0400 Body weight 131.09 kg Fred Gracia COMPUTER SYSTEMS SOFTWARE ENGINEER Work Phone: [facility] 02-03-2024 14:28-0400 Diastolic blood pressure 90 mm[Hg] Fred Gracia COMPUTER SYSTEMS SOFTWARE ENGINEER Work Phone: [facility] 02-03-2024 14:28-0400 Heart rate 83 /min Fred Gracia COMPUTER SYSTEMS SOFTWARE ENGINEER Work Phone: [facility] 02-03-2024 14:28-0400 Respiratory rate 18 /min Fred Gracia COMPUTER SYSTEMS SOFTWARE ENGINEER Work Phone: [facility] 02-03-2024 14:28-0400 SaO2% (BldA) [Mass fraction] 93 % Fred Gracia COMPUTER SYSTEMS SOFTWARE ENGINEER Work Phone: [facility] 02-03-2024 14:28-0400 Systolic blood pressure 128 mm[Hg] Fred Gracia COMPUTER SYSTEMS SOFTWARE ENGINEER Work Phone: [facility] 01-30-2024 10:45-0400 Body height 165.1 cm Eliazar Brooks DO Work Phone: [facility] 01-30-2024 10:45-0400 Body mass index (BMI) [Ratio] 48.92 kg/m2 Eliazar Cecilia DO Work Phone: [facility] 01-30-2024 10:45-0400 Body weight 133.36 kg Eliazar Cecilia DO Work Phone: [facility] 07-10-2023 15:53-0500 Body height 167.6 cm Paris Paris DO Work Phone: [facility] 07-10-2023 15:53-0500 Body weight 134.26 kg Paris Paris DO Work Phone: [facility] 07-10-2023 15:53-0500 Heart rate 89 /min Paris Paris DO Work Phone: [facility] 07-10-2023 15:53-0500 SaO2% (BldA) [Mass fraction] 97 % Paris Paris DO Work Phone: [facility] 06-26-2023 11:34-0500 Body height 165.1 cm Shaikh Jonn BENITEZ Work Phone: [facility] 06-26-2023 11:34-0500 Body mass index (BMI) [Ratio] 48.09 kg/m2 Shaikh Jonn BENITEZ Work Phone: [facility] 06-26-2023 11:34-0500 Body temperature 98.6 [degF] Shaikh Jonn BENITEZ Work Phone: [facility] 06-26-2023 11:34-0500 Body weight 131.09 kg Shaikh Jonn BENITEZ Work Phone: [facility] 06-26-2023 11:34-0500 Diastolic blood pressure 80 mm[Hg] Shaikh Jonn BENITEZ Work Phone: [facility] 06-26-2023 11:34-0500 Heart rate 77 /min Shaikh Jonn BENITEZ Work Phone: [facility] 06-26-2023 11:34-0500 SaO2% (BldA) [Mass fraction] 96 % Shaikh Jonn BENITEZ Work Phone: [facility] 06-26-2023 11:34-0500 Systolic blood pressure 136 mm[Hg] Shaikh Jonn BENITEZ Work Phone: [facility] 04-18-2022 10:30-0500 Body height 173.99 cm Liyah Rosa Other [employer] Other 04-18-2022 10:30-0500 Body mass index (BMI) [Ratio] 46.68 kg/m2 Liyah Rosa Other [employer] Other 04-18-2022 10:30-0500 Body weight 141.34 kg Liyah Rosa Other [employer] Other 04-18-2022 10:30-0500 Diastolic blood pressure 89 mm[Hg] Liyah Rosa Other [employer] Other 04-18-2022 10:30-0500 Systolic blood pressure 129 mm[Hg] Liyah Rosa Other [employer] Other 03-22-2022 12:54-0400 Body height 172.7 cm Jessica Young PA-C Work Phone: [facility] 03-22-2022 12:54-0400 Body weight 131.54 kg Jessica Young PA-C Work Phone: [facility] 03-22-2022 12:54-0400 Diastolic blood pressure 76 mm[Hg] Jessica Young PA-C Work Phone: [facility] 03-22-2022 12:54-0400 Heart rate 108 /min Jessica Young PA-C Work Phone: [facility] 03-22-2022 12:54-0400 Systolic blood pressure 129 mm[Hg] Jessica Young PA-C Work Phone: [facility] 03-22-2022 09:30-0400 Body temperature 97 [degF] Infusion 10 Work Phone: [facility] 03-22-2022 09:30-0400 Diastolic blood pressure 83 mm[Hg] Infusion 10 Work Phone: [facility] 03-22-2022 09:30-0400 Heart rate 79 /min Infusion 10 Work Phone: [facility] 03-22-2022 09:30-0400 Systolic blood pressure 152 mm[Hg] Infusion 10 Work Phone: [facility] 12-13-2021 10:30-0400 Body height 173.99 cm Liyah Rosa Other [employer] Other 12-13-2021 10:30-0400 Body mass index (BMI) [Ratio] 45.55 kg/m2 Liyah Rosa Other [facility] [employer] Other 12-13-2021 10:30-0400 Body weight 137.89 kg Liyah Rosa Other [employer] [facility] [employer] Other 11-14-2021 08:42-0400 Body height 174 cm Jessica Young PA-C Work Phone: [facility] 11-14-2021 08:42-0400 Body weight 132 kg Jessica Young PA-C Work Phone: [facility] 11-14-2021 08:42-0400 Diastolic blood pressure 68 mm[Hg] Jessica Young PA-C Work Phone: [facility] 11-14-2021 08:42-0400 Heart rate 88 /min Jessica Young PA-C Work Phone: [facility] 11-14-2021 08:42-0400 Systolic blood pressure 112 mm[Hg] Jessica Young PA-C Work Phone: [facility] 09-18-2021 12:00-0400 Body temperature 97.9 [degF] Infusion 2 Work Phone: [facility] 09-18-2021 12:00-0400 Diastolic blood pressure 89 mm[Hg] Infusion 2 Work Phone: [facility] 09-18-2021 12:00-0400 Heart rate 93 /min Infusion 2 Work Phone: [facility] 09-18-2021 12:00-0400 Respiratory rate 16 /min Infusion 2 Work Phone: [facility] 09-18-2021 12:00-0400 Systolic blood pressure 131 mm[Hg] Infusion 2 Work Phone: [facility] 09-18-2021 08:00-0400 Body height 174 cm Infusion 2 Work Phone: [facility] 09-18-2021 08:00-0400 Body weight 117.94 kg Infusion 2 Work Phone: [facility] 09-05-2021 10:45-0400 Diastolic blood pressure 68 mm[Hg] Services [facility] Work Phone: [facility] 09-05-2021 10:45-0400 Heart rate 91 /min Services [facility] Work Phone: [facility] 09-05-2021 10:45-0400 Respiratory rate 18 /min Services [facility] Work Phone: [facility] 09-05-2021 10:45-0400 SaO2% (BldA) [Mass fraction] 99 % Services [facility] Work Phone: [facility] 09-05-2021 10:45-0400 Systolic blood pressure 122 mm[Hg] Services [facility] Work Phone: [facility] 09-05-2021 08:26-0400 Body height 173.99 cm Services [facility] Work Phone: [facility] 09-05-2021 08:26-0400 Body mass index (BMI) [Ratio] 43.4 kg/m2 Services [facility] Work Phone: [facility] 09-05-2021 08:26-0400 Body temperature 98.2 [degF] Services [facility] Work Phone: [facility] 09-05-2021 08:26-0400 Body weight 131.54 kg Services [facility] Work Phone: [facility] 08-14-2021 11:30-0400 Body height 173.99 cm Liyah Rosa Other [employer] Other 08-14-2021 11:30-0400 Body mass index (BMI) [Ratio] 43.45 kg/m2 Liyah Rosa Other [employer] Other 08-14-2021 11:30-0400 Body weight 131.54 kg Liyah Rosa Other [employer] Other Encounters Encounter Date Encounter Type Care Provider Facility Start: 11-24-2024 ambulatory REGINA Keila MATTHEWS Facili ty:[facility] Start: 10-09-2024 End: 10-09-2024 ambulatory REGINA E BYRON Facility:[facility] Start: 10-06-2024 ambulatory REGINA BYRON Facility :[facility] Start: 09-29-2024 End: 09-29-2024 Telephone encounter Anya Soni RN [facility] Comment on above: incision Start: 09-19-2024 End: 09-19-2024 ambulatory UNKNOWN PROVIDER Facility:[facility] Start: 09-18-2024 End: 09-29-2024 Evaluation and management of inpatient Lewis Botello DO Work Phone: [facility] Acute Start: 09-18-2024 End: 09-18-2024 Clinisync Result Encounter Sary Colin MD Work Phone: [facility] Unsolicited Start: 09-18-2024 End: 09-18-2024 Clinisync Result Encounter Sary Colin MD Work Phone: [facility] External Department Unsolicited Start: 09-16-2024 End: 09-16-2024 ambulatory ADONAY Saavedra JONATHAN [facility] Start: 09-16-2024 End: 09-16-2024 Office outpatient new 20 minutes Adonay Castillo ON SITE COORDINATOR-FINANCIAL INSTITUTION MANAGER Work Phone: [facility] Comment on above: Dermatitis associate d with moisture (Primary Dx); Pressure injury of left buttock, stage 2 ([facility]) Start: 08-28-2024 End: 09-01-2024 Emergency department patient visit MUNIRA HARO [facility] Start: 08-28-2024 End: 09-01-2024 Evaluation and management of inpatient FRED Tevin GRACIA [facility] Start: 08-23-2024 End: 08-25-2024 Clinisync Result Encounter Generic External Data Provider [facility] Unsolicited Start: 08-23-2024 End: 08-25-2024 Clinisync Result Encounter Generic External Data Provider [facility] External [facility] Unsolicited Start: 08-23-2024 End: 08-23-2024 Refill Fred Gracia COMPUTER SYSTEMS SOFTWARE ENGINEER Work Phone: [facility] Comment on above: 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 (Primary Dx); Yeast dermatitis Start: 08-22-2024 End: 08-22-2024 ambulatory Tripp Gruber [facility] Work Phone: Start: 08-22-2024 End: 08-22-2024 Departed Referred Tripp Gruber MD Work Phone: [facility] Path [facility] Start: 08-22-2024 End: 08-23-2024 Clinisync Result Encounter Generic External Data Provider [facility] External Department Unsolicited Start: 08-22-2024 End: 08-23-2024 Clinisync Result Encounter Generic External Data Provider [facility] External Department Unsolicited Start: 08-18-2024 End: 08-18-2024 Bamboo flowsheet Fred Gracia COMPUTER SYSTEMS SOFTWARE ENGINEER Work Phone: [facility] Start: 08-18-2024 End: 08-18-2024 Bamboo flowsheet Fred Gracia COMPUTER SYSTEMS SOFTWARE ENGINEER Work Phone: [facility] Start: 08-18-2024 End: 08-18-2024 Office outpatient visit 25 minutes Fred Gracia COMPUTER SYSTEMS SOFTWARE ENGINEER Work Phone: [facility] Comment on above: Generalized anxiety disorder with panic attacks (CMS/HCC) (Primary Dx); Morbid (severe) obesity due to excess calories (CMS/HCC); Major depressive disorder, recurrent, moderate (CMS/HCC); Primary insomnia Start: 08-18-2024 End: 08-18-2024 ambulatory FRED BASIL Not Available Start: 08-03-2024 End: 08-03-2024 Telephone encounter Elva Rodriguez COMPUTER SYSTEMS SOFTWARE ENGINEER Work Phone: [facility] Start: 07-07-2024 End: 07-07-2024 Bamboo flowsheet Fred Monikaaimee COMPUTER SYSTEMS SOFTWARE ENGINEER Work Phone: [facility] Start: 07-07-2024 End: 07-07-2024 Bamboo flowsheet Fred Monikareyholz COMPUTER SYSTEMS SOFTWARE ENGINEER Work Phone: [facility] Start: 07-07-2024 End: 07-07-2024 ambulatory FRED MONIKAReyHOLZ Not Available Start: 06-30-2024 End: 06-30-2024 Clinisync Result Encounter Fred Frankaimee COMPUTER SYSTEMS SOFTWARE ENGINEER Work Phone: [facility] External Department Unsolicited Start: 06-30-2024 End: 06-30-2024 Clinisync Result Encounter Fred Monikacaitiez COMPUTER SYSTEMS SOFTWARE ENGINEER Work Phone: [facility] External Department Unsolicited Start: 06-17-2024 End: 06-17-2024 Bamboo flowsheet Sherrie Boone COMPUTER SYSTEMS SOFTWARE ENGINEER Work Phone: [facility] Start: 06-17-2024 End: 06-17-2024 Bamboo flowsheet Sherrie Boone COMPUTER SYSTEMS SOFTWARE ENGINEER Work Phone: [facility] Start: 06-17-2024 End: 06-17-2024 Office outpatient visit 10 minutes Sherrie Boone COMPUTER SYSTEMS SOFTWARE ENGINEER Work Phone: [facility] Comment on above: Acute non-recurrent frontal sinusitis (Primary Dx) Start: 06-17-2024 End: 06-17-2024 ambulatory SHERRIE BOONE Not Available Start: 05-18-2024 End: 05-18-2024 Bamboo flowsheet Fred Sonuholz COMPUTER SYSTEMS SOFTWARE ENGINEER Work Phone: [facility] Start: 05-18-2024 End: 05-18-2024 Bamboo flowsheet Fred Sonuholz COMPUTER SYSTEMS SOFTWARE ENGINEER Work Phone: [facility] Start: 05-18-2024 End: 05-18-2024 Patient encounter procedure Fred Gracia COMPUTER SYSTEMS SOFTWARE ENGINEER Work Phone: [facility] Comment on above: Encounter for subseq uent annual wellness visit (AWV) in Medicare patient (Primary Dx); LORENZO (obstructive sleep apnea); Multiple sclerosis ([facility]); Primary insomnia; Class 3 severe obesity without serious comorbidity with body mass index (BMI) of 45.0 to 49.9 in adult, unspecified obesity type ([facility]); Encounter for screening mammogram for malignant neoplasm of breast; Moderate episode of recurrent major depressive disorder ([facility]); Generalized anxiety disorder with panic attacks ([facility]) Start: 05-18-2024 End: 05-18-2024 ambulatory FRED GRACIA Not Available Start: 05-07-2024 End: 05-07-2024 Orders Only Jessica Clarke PA-C Work Phone: [facility] Start: 05-04-2024 End: 05-05-2024 Telephone encounter Aria Kumar PT [facility] Comment on above: re: PT Eval tomorrow ; Call Back Start: 04-27-2024 End: 04-27-2024 Telephone encounter Fred Gracia COMPUTER SYSTEMS SOFTWARE ENGINEER Work Phone: [facility] Start: 04-27-2024 End: 04-27-2024 Patient encounter procedure Yahaira Vazquez PA Work Phone: [facility] Comment on above: Adhesive capsulitis of left shoulder (Primary Dx); S/P arthroscopy of left shoulder Start: 04-27-2024 End: 04-27-2024 ambulatory YAHAIRA VAZQUEZ Not Available Start: 04-26-2024 End: 04-27-2024 Refill Fred Gracia COMPUTER SYSTEMS SOFTWARE ENGINEER Work Phone: [facility] Comment on above: Anxiety and depressi on ([facility]) Start: 04-15-2024 End: 04-15-2024 Refill Fred Basil COMPUTER SYSTEMS SOFTWARE ENGINEER Work Phone: [facility] Comment on above: Acute cough (Primary Dx) Start: 04-14-2024 End: 04-14-2024 Refill Fred Basil COMPUTER SYSTEMS SOFTWARE ENGINEER Work Phone: [facility] Comment on [...] 03-25-2024 End: 03-25-2024 Bamboo flowsheet Inderjit Pelletier ADJUNCT PROFESSOR OF U.S. HISTORY [facility] Start: 03-25-2024 End: 03-25-2024 Bamboo flowsheet Inderjit Pelletier ADJUNCT PROFESSOR OF U.S. HISTORY [facility] Start: 03-25-2024 End: 03-25-2024 ambulatory Inderjit Pelletier ADJUNCT PROFESSOR OF U.S. HISTORY [facility] Comment on above: Left shoulder pain, unspecified chronicity (Primary Dx); S/P arthroscopy of left shoulder Start: 03-13-2024 End: 03-13-2024 Bamboo flowsheet Inderjit Pelletier ADJUNCT PROFESSOR OF U.S. HISTORY [facility] Start: 03-13-2024 End: 03-13-2024 Bamboo flowsheet Inderjit Pelletier ADJUNCT PROFESSOR OF U.S. HISTORY [facility] Start: 03-13-2024 End: 03-13-2024 ambulatory Inderjit Pelletier ADJUNCT PROFESSOR OF U.S. HISTORY [facility] Comment on above: Left [...] Start: 03-06-2024 End: 03-06-2024 ambulatory Inderjit Pelletier ADJUNCT PROFESSOR OF U.S. HISTORY [facility] Comment on above: S/P arthroscopy of l eft shoulder (Primary Dx) Start: 03-05-2024 End: 03-05-2024 Bamboo flowsheet Fred Monikareyvicky COMPUTER SYSTEMS SOFTWARE ENGINEER Work Phone: [facility] Start: 03-05-2024 End: 03-05-2024 Bamboo flowsheet Fred Monikareyvicky COMPUTER SYSTEMS SOFTWARE ENGINEER Work Phone: [facility] Start: 03-05-2024 End: 03-05-2024 Office outpatient visit 15 minutes Fred Monikareyvicky COMPUTER SYSTEMS SOFTWARE ENGINEER Work Phone: [facility] Comment on above: Anxiety and depressi on (CMS/HCC) (Primary Dx); Needs flu shot; Candidiasis of skin Start: 03-05-2024 End: 03-05-2024 ambulatory FRED MONIKAReyVICKY Not Available Start: 03-03-2024 End: 03-03-2024 Bamboo flowsheet Inderjit Pelletier ADJUNCT PROFESSOR OF U.S. HISTORY [facility] Start: 03-03-2024 End: 03-03-2024 Bamboo flowsheet Inderjit Pelletier ADJUNCT PROFESSOR OF U.S. HISTORY [facility] Start: 03-03-2024 End: 03-03-2024 ambulatory Inderjit Pelletier ADJUNCT PROFESSOR OF U.S. HISTORY [facility] Comment on above: S/P [...] to same day surgery center Eliazar Brooks [facility] Start: 02-10-2024 End: 02-10-2024 ambulatory Eliazar Brooks [place] [place]: 02-05-2024 End: 02-05-2024 ambulatory [facility] Facility[place] [place] Start: 02-03-2024 End: 02-03-2024 Office outpatient visit 15 minutes Fred Gracia COMPUTER SYSTEMS SOFTWARE ENGINEER Work Phone: [facility] Comment on above: Diverticulitis (Prim donna Dx); Class 3 severe obesity without serious comorbidity with body mass index (BMI) of 45.0 to 49.9 in adult, unspecified obesity type ([facility]/HCC) Start: 02-03-2024 End: 02-03-2024 Bamboo flowsheet Fred Gracia COMPUTER SYSTEMS SOFTWARE ENGINEER Work Phone: [facility] Start: 02-03-2024 End: 02-03-2024 Bamboo flowsheet Fred Gracia COMPUTER SYSTEMS SOFTWARE ENGINEER Work Phone: [facility] Start: 02-03-2024 End: 02-03-2024 ambulatory FRED GRACIA Not Available Start: 01-30-2024 End: 01-30-2024 Bamboo flowsheet Eliazar Brooks DO Work Phone: [facility] Start: 01-30-2024 End: 01-30-2024 Bamboo flowsheet Eliazar Brooks DO Work Phone: [facility] Start: 01-30-2024 End: 01-30-2024 Patient encounter procedure Eliazar Carbone Brooks DO Work Phone: [facility] Comment on above: Pre-op testing (Prim odnna Dx); Rotator cuff impingement syndrome of left shoulder Start: 01-30-2024 End: 01-30-2024 Patient encounter status Eliazar Raf Cecilia DO Work Phone: [facility] Start: 01-30-2024 End: 01-30-2024 ambulatory ELIAZAR Raf CECILIA Not Available Start: 01-29-2024 End: 01-29-2024 Orders Only Fred Gracia COMPUTER SYSTEMS SOFTWARE ENGINEER Work Phone: [facility] Comment on above: Multiple sclerosis ( CMS/HCC) (Primary Dx) Start: 01-23-2024 End: 01-23-2024 Clinisync Result Encounter Fred Gracia COMPUTER SYSTEMS SOFTWARE ENGINEER Work Phone: [facility] External Department Unsolicited Start: 01-23-2024 End: 01-23-2024 Clinisync Result Encounter Rfed Basil COMPUTER SYSTEMS SOFTWARE ENGINEER Work Phone: [facility] External Department Unsolicited Start: 01-23-2024 End: 01-23-2024 ambulatory SHERRIE BOONE Not Available Start: 01-14-2024 End: 01-17-2024 Telephone encounter Jessica Clarke PA-C Work Phone: [facility] Comment on above: Orders Start: 01-06-2024 End: 01-06-2024 ambulatory FRED AICReyHOLZ Not Available Start: 12-24-2023 End: 01-10-2024 Pre-admission assessment Eliazar Brooks [facility] Start: 12-24-2023 End: 12-24-2023 ambulatory ELIAZAR BROOKS Not Available Start: 12-19-2023 Telephone encounter Nurse [facility] Work Phone: Infusion Start: 12-02-2023 End: 12-02-2023 ambulatory FRED AICHHOLZ Not Available Start: 11-27-2023 Orders Only Jessica Saavedra A-C Work Phone: [facility] Comment on above: Multiple sclerosis ( HCC) (Primary Dx); Vitamin D deficiency Start: 11-26-2023 Orders Only Sarthak Escobar MD, PhD Work Phone: [facility] Start: 11-13-2023 End: 11-13-2023 ambulatory YAHAIRA D HILLS Not Available Start: 11-05-2023 End: 11-05-2023 ambulatory YAHAIRA D HILLS Not Available Start: 10-10-2023 End: 10-10-2023 ambulatory FRED TELLEZHOLZ Not Available Start: 10-07-2023 End: 10-07-2023 ambulatory YAHAIRA D HILLS Not Available Start: 09-06-2023 End: 09-06-2023 ambulatory Lashaun Christina PA-C Work Phone: [facility] [place] Comment on above: Left arm weakness (P rimary Dx) Start: 09-06-2023 End: 09-06-2023 Telemedicine consultation with patient Lashaun Harris PA-C Work Phone: [facility] Start: 08-22-2023 ambulatory Jessica Saavedra A-C Work Phone: [facility] Comment on above: Spine Start: 08-22-2023 Chart abstracting None (Historical) Neurology Start: 08-21-2023 Telephone encounter Jessica mireles PA-C Work Phone: [facility] Comment on above: Patient Question Start: 08-08-2023 ambulatory ELIAZAR Saleh ty:[facility] Start: 07-15-2023 Telephone encounter Jessica mireles PA-C Work Phone: [facility] Comment on above: Orders (Order for MR I needed for Brain and Cervical) Start: 07-10-2023 End: 07-10-2023 ambulatory JESSICA CLARKE Facility:[facility] Start: 07-10-2023 End: 07-10-2023 Patient encounter [...] caregiver Paris E Paris DO Work Phone: [facility] AALIYAH [facility] Start: 06-26-2023 End: 06-26-2023 Office outpatient visit 25 minutes Shaikh Jonn BENITEZ Work Phone: [facility] Comment on above: Multiple sclerosis ( CMS/HCC) (Primary Dx); Primary hypertension (CMS/HCC); Anxiety and depression (CMS/HCC); COPD with exacerbation (CMS/HCC); Non-recurrent acute suppurative otitis media of left ear without spontaneous rupture of tympanic membrane Start: 05-22-2023 End: 05-22-2023 ambulatory SARTHAK ESCOBAR Facility:[facility] Start: 05-02-2023 End: 05-02-2023 ambulatory Jessica Vince PA-C Work Phone: [facility] Comment on above: Multiple sclerosis ( HCC) (Primary Dx) Start: 05-02-2023 End: 05-02-2023 Telemedicine consultation with patient Jessica Clarke PA-C Work Phone: [facility] Start: 04-22-2023 ambulatory Jessica Young P A-C Work Phone: [facility] Comment on above: Skull Start: 04-19-2023 ambulatory Jessica Young P A-C Work Phone: [facility] Comment on above: Skull Start: 10-17-2022 ambulatory Valdez Sousa Work Phone: [facility] [place] Start: 10-01-2022 End: 10-01-2022 ambulatory RUBINA GRACIA Facility:[facility] Start: 10-01-2022 ambulatory RUBINA GRACIA Facil ity:[facility] Start: 09-21-2022 End: 09-21-2022 ambulatory YAAHIRA MCKEON . Facility:[facility] Start: 08-30-2022 Orders Only Jessica Almodovar Work Phone: [facility] Comment on above: Multiple sclerosis, relapsing-remitting (HCC) (Primary Dx) Start: 06-05-2022 End: 06-06-[address] DOCTOR BULL Facility:[facility] Start: 04-18-2022 End: 04-18-2022 ambulatory Liyah Rosa Other [place] [employer] Other Start: 04-18-2022 Office outpatient vi sit 15 minutes Liyah Rosa [facility] Gastroenterology Start: 03-30-2022 Telephone encounter Valdez aleman MD Work Phone: [address] [place] [address] Comment on above: Patient Update Start: 03-22-2022 End: 03-22-2022 Patient encounter procedure Jessica Clarke PA-C Work Phone: [facility] Comment on above: Multiple sclerosis, relapsing-remitting (HCC) (Primary Dx) Start: 03-22-2022 End: 03-22-2022 ambulatory Infusion [facility] 10 Work Phone: Multiple Sclerosis Comment on above: Multiple sclerosis ( HCC) (Primary Dx) Start: 03-16-2022 Orders Only Sarthak Escobar MD, PhD Work Phone: [facility] Start: 03-07-2022 End: 03-07-2022 ambulatory RUBINA GRACIA Facility:[facility] Start: 03-06-2022 ambulatory Valdez Sousa Work Phone: [facility] Start: 02-12-2022 Telephone encounter Jessica mireles PA-C Work Phone: Neurology Comment on above: Appointment (Called pt LVM to see about setting up pt and psycology.) Start: 01-16-2022 End: 01-16-2022 ambulatory Jojo Pickard OTR/L Work Phone: [facility] Occupational Therapy Comment on above: Multiple sclerosis, relapsing-remitting (HCC) Start: 12-13-2021 End: 12-13-2021 ambulatory Liyah Rosa Other [employer] Other Start: 12-13-2021 Office outpatient vi sit 15 minutes Liyah Rosa [facility] Gastroenterology Start: 11-15-2021 ambulatory Valdez Sousa Work Phone: [facility] [place] Start: 11-14-2021 End: 11-14-2021 Patient encounter procedure Jessica Clarke PA-C Work Phone: [facility] Comment on above: Multiple [...] 09-15-2021 ambulatory Jessica Clarke PA-C Work Phone: [facility] Comment on above: Multiple sclerosis, relapsing-remitting (HCC) Start: 09-15-2021 End: 09-15-2021 Telemedicine consultation with patient Jessica Clarke PA-C Work Phone: [facility] Start: 09-14-2021 End: 09-14-2021 ambulatory Liyah Rosa Other [employer] Other Start: 09-14-2021 Telephone encounter Liyah Carlisle ck [employer] Start: 09-05-2021 End: 09-05-2021 Admission to same day surgery center Services [facility] Work Phone: [facility] Start: 09-01-2021 End: 09-01-2021 Patient encounter procedure Services [facility] Work Phone: [facility]-Pre-Surgical Testing Start: 08-14-2021 End: 08-14-2021 ambulatory Liyah Rosa Other [place] [employer] Other Start: 08-14-2021 Office outpatient ne w 45 minutes Liyah Rosa [facility] Start: 07-28-2020 End: 07-28-2020 Patient encounter procedure Jazmin Shaikh Work Phone: [facility] Work Phone: Start: 12-20-2016 End: 12-21-2016 Ambulatory [facility] Facility:[facility] Start: 11-27-2012 Patient encounter status Jessica Clarke PA-C Work Phone: [facility] Procedures Date Procedure Procedure Detail Performing Clinician Start: 09-28-2024 Radiologic exam swal low function contrast study Jesi Lewis ON SITE COORDINATOR-FINANCIAL INSTITUTION MANAGER Work Phone: Start: 09-28-2024 Basic metabolic pane l calcium total Sandie IBANEZ Work Phone: Start: 09-27-2024 Basic metabolic pane l calcium total Sandie IBANEZ Work Phone: Start: 09-27-2024 Radiologic exam ches t single view Anjelica Venegas ON SITE COORDINATOR-FINANCIAL INSTITUTION MANAGER Work Phone: Start: 09-25-2024 Assay of magnesium Maureen Espinal MD Work Phone: Start: 09-25-2024 Basic metabolic pane l calcium total Sandie IBANEZ Work Phone: Start: 09-24-2024 Radiologic exam swal low function contrast study Chip Zarate ON SITE COORDINATOR-FINANCIAL INSTITUTION MANAGER Work Phone: Start: 09-24-2024 Comprehensive metabo lic [...] 09-23-2024 Radiologic exam ches t single view Anjelicapascual Venegas ON SITE COORDINATOR-FINANCIAL INSTITUTION MANAGER Work Phone: Start: 09-23-2024 Basic metabolic pane l calcium total Sandie IBANEZ Work Phone: Start: 09-23-2024 REPEATED ABORH Xena Larios MD Work Phone: Start: 09-22-2024 Antibody screen Julio merchant MD Work Phone: Start: 09-22-2024 Antibody screen FRED BISHOP Comment on above: Performed By: #### T NIH #### [facility] ([facility]) [address] [place] [address] VIR Start: 09-22-2024 Blood typing serologic abo Laura Gore ON SITE COORDINATOR-FINANCIAL INSTITUTION MANAGER Work Phone: Start: 09-22-2024 Electrolyte panel Miriam Cuhrch MD Work Phone: Start: 09-22-2024 REPEATED IQRA Gore ON SITE COORDINATOR-FINANCIAL INSTITUTION MANAGER Work Phone: Start: 09-22-2024 HC ECHO COMPLETE W CONTRAST Melo Gill PA-C Work Phone: Start: 09-22-2024 Electrolyte panel Miriam Church MD Work Phone: Start: 09-22-2024 Ecg routine ecg w/le ast 12 lds trcg only w/o i&r Anjelica Venegas ON SITE COORDINATOR-FINANCIAL INSTITUTION MANAGER Work Phone: Start: 09-22-2024 Basic metabolic pane l calcium total Sandie IBANEZ Work Phone: Start: 09-22-2024 Drug screen quantita tive vancomycin Anjelica Venegas ON SITE COORDINATOR-[facility] Work Phone: Start: 09-21-2024 Electrolyte panel Miriam Church MD Work Phone: Start: 09-21-2024 Protein electrophore tic fractj&quantj serum Miriam Church MD Work Phone: Start: 09-21-2024 Drug screen quantita tive vancomycin Michelle Petrisor Avasilcai ON SITE COORDINATOR-[facility] Work Phone: Start: 09-21-2024 Electrolyte panel Miriam Church MD Work Phone: Start: 09-21-2024 Basic metabolic pane l calcium total Sandie IBANEZ Work Phone: Start: 09-20-2024 Drug screen quantita tive vancomycin Michelle Petrisor Avasilcai ON SITE COORDINATOR-[facility] Work Phone: Start: 09-20-2024 Electrolyte panel Miriam Church MD Work Phone: Start: 09-20-2024 Radiologic exam abdo men 1 view Steffanie Lozano ON SITE COORDINATOR-[facility] Work Phone: Start: 09-20-2024 Ct abdomen & pelvis w/o contrast material Hiram Jones MD Work Phone: Start: 09-20-2024 Electrolyte panel Miriam Church MD Work Phone: Start: 09-20-2024 End: 09-20-2024 Culture bacterial blood aerobic w/id isolates Steffanie Lozano ON SITE COORDINATOR-FINANCIAL INSTITUTION MANAGER Work Phone: Start: 09-20-2024 Basic metabolic pane l calcium total Sandie IBANEZ Work Phone: Start: 09-20-2024 Mri brain brain stem w/o w/contrast material Chip Zarate ON SITE COORDINATOR-FINANCIAL INSTITUTION MANAGER Work Phone: Start: 09-19-2024 Electrolyte panel Miriam Church MD Work Phone: Start: 09-19-2024 Electrolyte panel [...] Data Provider Start: 08-22-2024 URINE CULTURE - [facility] Ge neric External Data Provider Start: 06-30-2024 MM TOMOSYNTHESIS SCR EENING BI Fred Gracia COMPUTER SYSTEMS SOFTWARE ENGINEER Work Phone: Start: 06-30-2024 Mammography Fred rivera COMPUTER SYSTEMS SOFTWARE ENGINEER Work Phone: Start: 04-27-2024 Arthrocentesis aspir &/inj major jt/bursa w/us Yahaira IBANEZ Work Phone: Start: 02-25-2024 Radex shoulder compl ete minimum 2 views Eliazar Brooks DO Work Phone: Start: 02-10-2024 Arthroscopy of shoulder Eliazar Brooks Start: 01-23-2024 [facility] UA (CLEAN/CATCH) MICROSCOPIC IF INDICATE Fred Gracia COMPUTER SYSTEMS SOFTWARE ENGINEER Work Phone: Start: 03-07-2022 Microscopic observat ion [...] Diagnostic endoscopi c examination on colon Services [facility] Work Phone: Start: 09-01-2021 SARS Antigen (LFIA) Ser vices [facility] Work Phone: Start: 07-28-2020 Imm. administration COVID19 [employer] Work Phone: Start: 07-28-2020 SARS-CoV-2 vaccine, 0.5ml [employer] Work Phone: Start: 09-17-2012 Mammography Shaikh Ilan gimenez MD Work Phone: Ectopic (disorder) Eliazar Brooks Entire carpal canal (body structure) Eliazar Brooks Plan of Treatment Date Care Activity Detail Author Start: 09-22-2027 Screening for malignant neoplasm of colon [facility] Start: 10-02-2026 DTaP,Tdap and Td Vaccines (2 - Td or Tdap) DTaP,Tdap and Td Vaccines (2 - Td or Tdap) [facility] Start: 10-02-2026 Urine microalbumin profile [facility] Start: 09-18-2026 Lipid 1996 panel - Serum or Plasma Lipid Screening [facility] Start: 09-18-2026 Lipid panel Lipid Screening [facility] Start: 09-18-2026 LIPID SCREEN LIPID SCREEN [facility] Start: 05-22-2026 Diabetes Screening Diabetes Screening [facility] Start: 11-08-2025 LIPID SCREEN LIPID SCREEN [facility] Start: 09-28-2025 Adult BMI Screening Adult BMI Screening [facility] Start: 09-23-2025 Tobacco Screening Tobacco Screening [facility] Start: 09-16-2025 Tobacco Screening Tobacco Screening [facility] Start: 09-01-2025 Adult BMI Screening Adult BMI Screening [facility] Start: 06-30-2025 Screening for malignant neoplasm of breast Mammogram [facility] Start: 05-18-2025 Medicare Annual Wellness (AWV) Medicare Annual Wellness (AWV) [facility] Start: 03-07-2025 Screening for malignant neoplasm of cervix [facility] Start: 01-18-2025 Influenza vaccination Influenza Vaccine [facility] Start: 11-10-2024 End: 11-10-2024 ambulatory [facility] Start: 11-10-2024 End: 11-10-2024 Patient encounter procedure 11/10/2024 1:10 PM EDT Office Visit [facility] [address] [place] [phone] Jair Espinal MD [address] [place] [address] [address] [place] [address] [facility] Start: 10-02-2024 End: 09-28-2025 Void Trial [facility] Work Phone: Start: 09-30-2024 End: 09-30-2024 Patient encounter procedure 09/30/2024 8:40 AM EDT Office Visit [facility] [address] [place] [phone] Fred Gracia NP [address] [place] [address] [facility] Start: 09-18-2024 DIABETES SCREEN DIABETES SCREEN [facility] Start: 09-18-2024 Diabetes Screening Diabetes Screening [facility] Start: 09-07-2024 End: 09-07-2024 Patient encounter procedure 09/07/2024 8:00 AM EDT Office Visit [facility] [address] [place] [address] Nasra Horta, COMPUTER SYSTEMS SOFTWARE ENGINEER [address] [place] [address] [facility] Start: 08-31-2024 End: 08-31-2024 Patient encounter procedure 08/31/2024 10:30 AM EDT Office Visit [facility] [address] [place] [phone] Fred Gracia, KIRK [address] [place] [phone] [facility] Start: 08-22-2024 Urine culture [facility] Start: 08-22-2024 Bacteria identified in Urine by Culture Urine Culture [facility] Start: 08-18-2024 End: 08-18-2024 Patient encounter procedure [facility] Comment on above: Morbid (severe) obesity due to excess ca lories (CMS/HCC) (Primary Dx); Generalized anxiety disorder with panic attacks (CMS/HCC); Major depressive disorder, recurrent, moderate (CMS/HCC) Start: 07-13-2024 End: 07-13-2024 Patient encounter procedure 07/13/2024 9:40 AM EST Office Visit [facility] [address] [facility] [address] [place] [address] Nasra Horta, COMPUTER SYSTEMS SOFTWARE ENGINEER [address], [facility] [address] [place] [phone] [facility] Start: 07-07-2024 End: 07-07-2024 Patient encounter procedure 07/07/2024 10:00 AM EST Office Visit [facility] [address] [place] [id number] Fred Gracia, KIRK [address] [place] [phone] Generalized anxiety disorder with panic attacks (CMS/HCC) [...] [facility] [address] [place] [address] Fred Gracia NP [address] [place] [phone] [facility] Start: 06-25-2024 End: 06-25-2024 Patient encounter procedure 06/25/2024 8:40 AM EST Office Visit [facility] [address] [place] [address] Fred Gracia, KIRK [address] [place] [phone] [facility] Start: 06-17-2024 End: 06-17-2024 Patient encounter procedure 06/17/2024 9:30 AM EST Office Visit [facility] [address] [place] [address] Sherrie Boone NP [address] [place] [address] [facility] Comment on above: Arrived Start: 06-08-2024 End: 06-08-2024 Patient encounter procedure 06/08/2024 9:45 AM EST Office Visit [facility]O [address] [place] [phone] Yahaira Vazquez PA [address] [facility] [place] [address] [facility] Start: 05-18-2024 End: 07-17-2025 MG Breast - bilateral Screening Bilateral screening mammogram Imaging Routine Encounter for screening mammogram for malignant neoplasm of breast Expected: 05/18/2024 (Approximate), Expires: 07/17/2025 [facility] Healthcare Work Phone: Comment on above: [...] [facility] SWS NEUR [address] [facility] [address] [place] [address] Nasra Horta, COMPUTER SYSTEMS SOFTWARE ENGINEER [address], [facility] [address] [place] [phone] [facility] S[facility] NEUR Start: 05-05-2024 End: 05-05-2024 Patient encounter procedure 05/05/2024 9:40 AM EST Office Visit [facility] JLUIS [facility] [address] [place] [phone] Fred Gracia NP [address] [place] [phone] [facility] Start: 04-30-2024 Medicare Annual Wellness (AWV) Medicare Annual Wellness (AWV) [facility] Start: 04-29-2024 End: 04-29-2024 Patient encounter procedure 04/29/2024 9:40 AM EST Office Visit [facility] SWS NEUR [address] [facility] [address] [place] [address] Nasra Horta, COMPUTER SYSTEMS SOFTWARE ENGINEER [address], [facility] [address] [place] [address] [facility] NEUR Start: 04-27-2024 End: 04-27-2024 Patient encounter procedure [facility] Start: 04-10-2024 End: 04-10-2024 ambulatory 04/10/2024 8:30 AM EST Treatment [facility] PT [address] [facility] [address] [place] [address] Inderjit Pelletier, ADJUNCT PROFESSOR OF U.S. HISTORY [facility] Start: 04-07-2024 End: 04-07-2024 ambulatory 04/07/2024 9:00 AM EST Treatment [facility] PT [address] [facility] [address] [place] [address] Aria Kumar, PT [facility] Start: 04-02-2024 End: 04-02-2024 ambulatory 04/02/2024 8:30 AM EST Treatment [facility] PT [address] [facility] [address] [place] [address] Aria Kumar, PT [facility] Start: 03-17-2024 End: 03-17-2024 ambulatory 03/17/2024 9:00 AM EDT Treatment [facility] PT [address] [facility] [address] [place] [address] Aria Kumar, PT [facility] Start: 03-13-2024 End: 03-13-2024 ambulatory [facility] Comment on above: Arrived Start: 03-10-2024 End: 03-10-2024 ambulatory 03/10/2024 9:30 AM EDT Treatment [facility] CI PT [address] [facility] [address] [place] [address] Keli Major, ADJUNCT PROFESSOR OF U.S. HISTORY [facility] Start: 03-06-2024 End: 03-06-2024 ambulatory 03/06/2024 8:30 AM EDT Treatment [facility] PT [address] [facility] [place] [address] Liyah Inderjit, ADJUNCT PROFESSOR OF U.S. HISTORY [facility] Start: 03-05-2024 End: 03-05-2024 [...] NB ORTHO [address] [facility] [place] [address] Eliazar Brooks, DO [address] [place] [address] [facility] Start: 02-25-2024 End: 02-25-2024 Patient encounter procedure 02/25/2024 8:15 AM EDT Office Visit [facility] [address] [facility] [place] [place] [address] Eliazar Brooks, DO [address] [place] [address] [facility] NB ORTHO Start: 02-10-2024 End: 02-10-2024 Patient encounter procedure [facility] EXT DEP Start: 02-03-2024 End: 02-03-2024 Patient encounter procedure [facility] CWM FM Comment on above: Arrived Start: 01-31-2024 End: 01-29-2025 Urinalysis complete panel - Urine Urinalysis with reflex microscopic Lab Routine Pre-op testing Expected: 01/31/2024, Expires: 01/29/2025 [facility] Healthcare Work Phone: Comment on above: Expected: 01/31/2024, Expires: Start: 01-30-2024 End: 01-30-2024 Patient encounter procedure [facility]O Comment on above: Rotator cuff impingement syndrome of lef t shoulder (Primary Dx) Start: 01-23-2024 End: 01-23-2024 Patient encounter procedure 01/23/2024 12:00 PM EDT Procedure Visit [facility]WS NEUR [address] [place] [address] [facility] NE[facility] Start: 01-19-2024 Covid-19 Vaccine ( season) Covid-19 Vaccine ( season) [facility] Start: 01-19-2024 Influenza vaccination Influenza Vaccine (#1) [facility] Start: 12-10-2023 End: 12-10-2023 Patient encounter procedure 12/10/2023 10:30 AM EDT Office Visit [facility] [address] [address] Jessica Clarke PA-C [address] [place] [address] follow up [facility] Comment on above: follow up Start: 11-27-2023 End: 02-26-2024 25-hydroxyvitamin D3 [Mass/volume] in Serum or Plasma VITAMIN D 25 HYDROXY Lab Routine Vitamin D deficiency Expected: 11/27/2023, Expires: 02/26/2024 [facility] Comment on above: Expected: 11/27/2023, Expires: Start: 11-27-2023 End: 02-26-2024 CBC W Auto Differential panel - Blood COMPLETE BLOOD COUNT AND DIFFERENTIAL Lab Routine Multiple sclerosis (HCC) Expected: 11/27/2023, Expires: 02/26/2024 [facility] Work Phone: Comment on above: Expected: 11/27/2023, Expires: 4 Start: 11-27-2023 End: 02-26-2024 Comprehensive metabolic 2000 panel - Serum or Plasma COMPREHENSIVE METABOLIC PANEL Lab Routine Multiple sclerosis ([facility]) Expected: 11/27/2023, Expires: 02/26/2024 [facility] Comment on above: Expected: 11/27/2023, Expires: 4 Start: 11-27-2023 End: 02-26-2024 IgG [Mass/volume] in Serum or Plasma IMMUNOGLOBULIN G Lab Routine Multiple sclerosis ([facility]) Expected: 11/27/2023, Expires: 02/26/2024 [facility] Comment on above: Expected: 11/27/2023, Expires: Start: 11-27-2023 End: 02-26-2024 IgM [Mass/volume] in Serum or Plasma IMMUNOGLOBULIN M Lab Routine Multiple sclerosis ([facility]) Expected: 11/27/2023, Expires: 02/26/2024 [facility] Comment on above: Expected: 11/27/2023, Expires: Start: 11-27-2023 End: 11-27-2023 Patient encounter procedure 11/27/2023 12:00 PM EDT Appointment Radiology [address] [phone] Cervical Spine MRI Radiology Comment on above: Cervical Spine MRI Start: 11-09-2023 DIABETES SCREEN DIABETES SCREEN [facility] Start: 09-05-2023 End: 09-05-2023 Patient encounter procedure 09/05/2023 8:40 AM EDT Office Visit [facility] [address] [place] [address] Fred Gracia NP [address] [place] [address] [facility] Start: 07-25-2023 End: 06-26-2024 Pulmonary function testing Pulmonary function testing Imaging Routine COPD with exacerbation ([facility]) Expected: 07/25/2023, Expires: 06/26/2024 [facility] Work Phone: Comment on above: Expected: 07/25/2023, Expires: Start: 06-26-2023 End: 06-26-2024 XR Chest 2 Views XR chest 2 views Imaging Routine COPD with exacerbation (CMS/HCC) Expected: 06/26/2023, Expires: 06/26/2024 [facility] Comment on above: Expected: 06/26/2023, Expires: 5 Start: 06-26-2023 End: 06-26-2023 Patient encounter procedure 06/26/2023 11:30 AM EST Office Visit [facility] IM [address] [place] [address] Shaikh Lunsford MD [address] [place] [phone] Arrived [facility] Comment on above: Arrived Start: 05-20-2023 Behavioral Health Screening Behavioral Health Screening [facility] Start: 05-20-2023 Depression Assessment Depression Assessment [facility] Start: 01-18-2023 Covid-19 Vaccine ( season) Covid-19 Vaccine ( season) [facility] Start: 01-18-2023 Influenza vaccination [facility] Start: 09-15-2022 Adult depression screening assessment DEPRESSION SCREENING [facility] Start: 08-30-2022 End: 10-30-2022 CBC W Auto Differential panel - Blood CBC + DIFF Lab Routine Multiple sclerosis, relapsing-remitting (HCC) Expected: 08/30/2022, Expires: 10/30/2022 [facility] Work Phone: Comment on above: Expected: 08/30/2022, Expires: 3 Start: 08-30-2022 End: 10-30-2022 Comprehensive metabolic 2000 panel - Serum or Plasma COMP METABOLIC PANEL Lab Routine Multiple sclerosis, relapsing-remitting (HCC) Expected: 08/30/2022, Expires: 10/30/2022 [facility] Work Phone: Comment on above: Expected: 08/30/2022, Expires: 3 Start: 08-30-2022 End: 10-30-2022 IgG [Mass/volume] in Serum or Plasma IGG Lab Routine Multiple sclerosis, relapsing-remitting (HCC) Expected: 08/30/2022, Expires: 10/30/2022 [facility] Work Phone: Comment on above: Expected: 08/30/2022, Expires: 3 Start: 08-30-2022 End: 10-30-2022 IgM [Mass/volume] in Serum or Plasma IGM Lab Routine Multiple sclerosis, relapsing-remitting (HCC) Expected: 08/30/2022, Expires: 10/30/2022 [facility] Work Phone: Comment on above: Expected: 08/30/2022, Expires: 3 Start: 05-20-2022 DEPRESSION ASSESSMENT DEPRESSION ASSESSMENT [facility] Start: 03-22-2022 End: 05-22-2022 CBC W Auto Differential panel - Blood CBC + DIFF Lab Routine Multiple sclerosis, relapsing-remitting (HCC) Expected: 03/22/2022, Expires: 05/22/2022 [facility] Work Phone: Comment on above: Expected: 03/22/2022, Expires: 3 Start: 03-22-2022 End: 05-22-2022 CD19 ABSOLUTE COUNT CD19 ABSOLUTE COUNT Lab Routine Multiple sclerosis (HCC) Expected: 03/22/2022, Expires: 05/22/2022 [facility] Work Phone: Comment on above: Expected: 03/22/2022, Expires: 3 Start: 03-22-2022 End: 05-22-2022 Comprehensive metabolic 2000 panel - Serum or Plasma COMP METABOLIC PANEL Lab Routine Multiple sclerosis, relapsing-remitting (HCC) Expected: 03/22/2022, Expires: 05/22/2022 [facility] Work Phone: Comment on above: Expected: 03/22/2022, Expires: 3 Start: 03-22-2022 End: 05-22-2022 IgG [Mass/volume] in Serum or Plasma IGG Lab Routine Multiple sclerosis, relapsing-remitting (HCC) Expected: 03/22/2022, Expires: 05/22/2022 [facility] Work Phone: Comment on above: Expected: 03/22/2022, Expires: 3 Start: 03-22-2022 End: 05-22-2022 IgM [Mass/volume] in Serum or Plasma IGM Lab Routine Multiple sclerosis, relapsing-remitting (HCC) Expected: 03/22/2022, Expires: 05/22/2022 [facility] Work Phone: Comment on above: Expected: 03/22/2022, Expires: 3 Start: 01-18-2022 Influenza vaccination [facility] Start: 11-14-2021 End: 01-14-2022 JCV ANTIBODY & INDEX WITH REFLEX [facility] Work Phone: Comment on above: Expected: 11/14/2021, Expires: 2 Start: 09-18-2021 End: 11-18-2021 CD19 ABSOLUTE COUNT [facility] Work Phone: Comment on above: Expected: 09/18/2021, Expires: 2 Start: 09-16-2021 COVID-19 VACCINE (3 - Booster for Yeni series) COVID-19 VACCINE (3 - Booster for Yeni series) [facility] Start: 09-15-2021 End: 11-15-2021 CBC W Auto Differential panel - Blood CBC + DIFF Lab Routine Multiple sclerosis, relapsing-remitting (HCC) Expected: 09/15/2021, Expires: 11/15/2021 [facility] Work Phone: Comment on above: Expected: 09/15/2021, Expires: 2 Start: 09-15-2021 End: 11-15-2021 Comprehensive metabolic 2000 panel - Serum or Plasma COMP METABOLIC PANEL Lab Routine Multiple sclerosis, relapsing-remitting (HCC) Expected: 09/15/2021, Expires: 11/15/2021 [facility] Work Phone: Comment on above: Expected: 09/15/2021, Expires: 2 Start: 09-15-2021 End: 11-15-2021 IMMUNOGLOBULINS KESHAWN IMMUNOGLOBULINS KESHAWN Lab Routine Multiple sclerosis, relapsing-remitting (HCC) Expected: 09/15/2021, Expires: 11/15/2021 [facility] Work Phone: Comment on above: Expected: 09/15/2021, Expires: 2 Start: 09-15-2021 End: 11-15-2021 LIPID PANEL BASIC LIPID PANEL BASIC Lab Routine Multiple sclerosis, relapsing-remitting (HCC) Expected: 09/15/2021, Expires: 11/15/2021 [facility] Work Phone: Comment on above: Expected: 09/15/2021, Expires: 2 Start: 07-13-2021 COVID-19 VACCINE (3 - Booster for Yeni series) COVID-19 VACCINE (3 - Booster for Yeni series) [facility] Start: 05-20-2021 DEPRESSION ASSESSMENT DEPRESSION ASSESSMENT [facility] Start: 2018 Administration of varicella zoster vaccine Zoster (Shingles) [facility]1 [facility] 2) [facility] Start: 2018 Influenza vaccination LUNG CANCER SCREENING [facility] Start: 2018 Pneumococcal Vaccine: 50+ (2 of 2 - PCV) Pneumococcal Vaccine: 50+ (2 of 2 - PCV) [facility] Start: 2018 Screening for malignant neoplasm of lung Lung Cancer Screening [facility] Start: 2018 SHINGRIX VACCINE (1 of 2) SHINGRIX VACCINE (1 of 2) [facility] Start: 09-17-2013 Screening for malignant neoplasm of breast Mammogram [facility] Start: 2013 COLOGUARD (FIT-DNA) COLOGUARD (FIT-DNA) [facility] Start: 2013 Colonoscopy COLONOSCOPY [facility] Start: 2013 COLORECTAL CANCER SCREENING COLORECTAL CANCER SCREENING [facility] Start: [address] COLONOGRAPHY [facility] Start: 2013 FECAL OCCULT BLOOD FECAL OCCULT BLOOD [facility] Start: 2013 Screening for malignant neoplasm of colon [facility] Start: 2013 SIGMOIDOSCOPY SIGMOIDOSCOPY [facility] Start: 2008 Mammography [facility] Start: 2008 Screening for malignant neoplasm of breast Mammogram Screening [facility] Start: 1998 HPV TESTING HPV TESTING [facility] Start: 1998 Screening for malignant neoplasm of cervix [facility] Start: 1989 PAP TESTING PAP TESTING [facility] Start: 1989 Screening for malignant neoplasm of cervix [facility] Start: 1987 Hepatitis B Vaccine (1 of 3 - 19+ 3-dose series) Hepatitis B Vaccine (1 of 3 - 19+ 3-dose series) [facility] Start: 1986 Adult BMI Follow Up Plan Adult BMI Follow Up Plan [facility] Start: 1986 Anxiety Screening Anxiety Screening [facility] Start: 1986 Depression Screening Depression Screening [facility] Start: 1986 HIV SCREENING HIV SCREENING [facility] Start: 1986 HIV screening HIV Screening [facility] Start: 1980 Depression Screening Depression Screening [facility] Start: 1968 HEPATITIS B (1 of 3 - 3-dose series) HEPATITIS B (1 of 3 - 3-dose series) [facility] Start: 1968 Hepatitis B Vaccine (1 of 3 - 3-dose series) Hepatitis B Vaccine (1 of 3 - 3-dose series) [facility] Start: 1968 Screening for malignant neoplasm of colon [facility] Start: 1968 Tobacco Counseling Tobacco Counseling [facility] Basic metabolic 2000 panel - Serum or Plasma [facility] BLOOD CULTURE 1 BLOOD CULTURE 1 Lab Routine 08/23/2024 5:46 AM EDT [facility] BLOOD CULTURE 2 BLOOD CULTURE 2 Lab Routine 08/23/2024 5:52 AM EDT [facility] CBC W Auto Different ial panel - Blood [facility] End: 09-05-2024 EMG(NEURO/NI) EMG(NEURO/NI) EMG Routine Left arm weakness 1 Occurrences starting 09/06/2023 until 09/05/2024 [facility] Work Phone: Comment on above: 1 Occurrences starting 09/06/2023 until 09/05/2024 IMMUNOGLOBULINS KESHAWN IMMUNOGLOBUL INS KESHAWN Lab Routine Multiple sclerosis, relapsing-remitting (HCC) 09/18/2021 8:36 AM EDT [facility] Work Phone: Ionized calcium [facility] Work Phone: Magnesium [Mass/volu me] in Serum or Plasma [facility] End: 11-16-2023 ALIYA SCREENING ALIYA SCREENING Radiology Routine Encounter for screening mammogram for breast cancer 1 Occurrences starting 10/17/2022 until 11/16/2023 [facility] Work Phone: Comment on above: 1 Occurrences starting 10/17/2022 until 11/16/2023 End: 08-14-2024 MR Brain WO and W contrast IV MRI BRAIN WO/W IVCON Radiology Routine Multiple sclerosis (HCC) 1 Occurrences starting 07/16/2023 until 08/14/2024 [facility] Work Phone: Comment on above: 1 Occurrences starting 07/16/2023 until 08/14/2024 End: 10-05-2024 MR Cervical spine WO contrast MRI CERVICAL SPINE WO IVCON Radiology Routine Left arm weakness 1 Occurrences starting 09/06/2023 until 10/05/2024 [facility] Work Phone: Comment on above: 1 Occurrences starting 09/06/2023 until 10/05/2024 End: 10-15-2022 Mri brain brain stem w/o w/contrast material MRI BRAIN WO/W IVCON Radiology Routine Multiple sclerosis, relapsing-remitting (HCC) 1 Occurrences starting 09/15/2021 until 10/15/2022 [facility] Work Phone: Comment on above: 1 Occurrences starting 09/15/2021 until 10/15/2022 End: 12-14-2022 Mri brain brain stem w/o w/contrast material MRI BRAIN WO/W IVCON Radiology Routine Multiple sclerosis, relapsing-remitting (HCC) 1 Occurrences starting 11/14/2021 until 12/14/2022 [facility] Work Phone: Comment on above: 1 Occurrences starting 11/14/2021 until 12/14/2022 End: 09-29-2023 Mri brain brain stem w/o w/contrast material MRI BRAIN WO/W IVCON Radiology Routine Multiple sclerosis, relapsing-remitting (HCC) 1 Occurrences starting 08/30/2022 until 09/29/2023 [facility] Work Phone: Comment on above: 1 Occurrences starting 08/30/2022 until 09/29/2023 End: 09-29-2023 Mri spinal canal cervical w/o & w/contr matrl MRI CERVICAL SPINE WO/W IVCON Radiology Routine Multiple sclerosis, relapsing-remitting (HCC) 1 Occurrences starting 08/30/2022 until 09/29/2023 [facility] Work Phone: Comment on above: 1 Occurrences starting 08/30/2022 until 09/29/2023 OT PLAN OF CARE CERTIFICATION OT PLAN OF CARE CERTIFICATION Procedures Routine Multiple sclerosis, relapsing-remitting (HCC) Ordered: 01/16/2022 [facility] Work Phone: Comment on above: Ordered: 01/16/2022 Oxygen Therapy - Maintain SpO2: 90%; *HABITAT BIOLOGIST Guidelines for O2: Yes; Document: \[email or web address]\epi c\EPIC_Reference\Orders\ Respiratory Care Guidelines\CPG Oxygen 2022.pdf [facility] Work Phone: Patient Education Hemorrhoids (D C) Diverticulosis (DC) Colon Polypectomy (DC) [facility] Work Phone: Phosphate [Mass/volu me] in Serum or Plasma [employer] Platelets [#/volume] in Blood [facility] Work Phone: End: 12-15-2022 Screening mammography bi 2-view breast inc cad ALIYA SCREENING Radiology Routine Encounter for screening mammogram for breast cancer 1 Occurrences starting 11/15/2021 until 12/15/2022 [facility] Work Phone: Comment on above: 1 Occurrences starting 11/15/2021 until 12/15/2022 Surgical Pathology [facility] Work Phone: URINE CULTURE - [facility] URINE CULTU RE - [facility] Lab Routine 08/22/2024 10:45 PM EDT [facility] End: 10-05-2024 XR CERV OTHER 4V AP/LAT/FLX/EXT XR CERV OTHER 4V AP/LAT/FLX/EXT Radiology Routine Left arm weakness 1 Occurrences starting 09/06/2023 until 10/05/2024 [facility] Work Phone: Comment on above: 1 Occurrences starting 09/06/2023 until 10/05/2024 [facility] Immunizations Immunization Date Immunization Notes Care Provider [facility] 03-05-2024 influenza, injectabl e, madin eric canine kidney, preservative free Julio Fernandez MD Work Phone: [facility] 03-05-2024 Influenza, injectabl e, Madin Osteen Canine Kidney, preservative free, quadrivalent Fred Gracia COMPUTER SYSTEMS SOFTWARE ENGINEER Work Phone: [facility] 03-05-2024 unknown vaccine or immune globulin Julio Fernandez MD Work Phone: [facility] 03-05-2024 influenza virus vaccine, unspecified formulation Adonay Castillo [facility] Work Phone: [facility] 05-02-2023 influenza, intraderm al, quadrivalent, preservative free, injectable Shaikh Jonn BENITEZ Work Phone: [facility] 05-02-2023 influenza virus vaccine, unspecified formulation Sarthak Escobar MD, PhD Work Phone: [facility] 04-30-2023 influenza, seasonal, injectable Shaikh Jonn BENITEZ Work Phone: [facility] 05-29-2022 unknown vaccine or immune globulin Julio Fernandez MD Work Phone: [facility] 03-07-2022 influenza, high dose seasonal, preservative-free Shaikh Jonn BENITEZ Work Phone: [facility] 03-07-2022 influenza virus vaccine, unspecified formulation Jessica Young PA-C Work Phone: [facility] 05-18-2021 COVID-19 mRNA-1273 (Moderna) Services [facility] Work Phone: [facility] 05-18-2021 unknown vaccine or immune globulin Julio Fernandez MD Work Phone: [facility] 07-28-2020 unknown vaccine or immune globulin Julio Fernandez MD Work Phone: [facility] 07-28-2020 Ilia and Ilia COVID 19 Vaccine Jaleesa Lara [facility] Comment on above: Note: Patient tolera jonah well. No signs or symptoms of adverse reactions. Patient waited a minimum of 15 minutes. 04-08-2020 influenza, injectabl e, quadrivalent, preservative free Jessica Young PA-C Work Phone: [facility] 03-20-2019 influenza, injectabl e, quadrivalent, preservative free Jsesica Young PA-C Work Phone: [facility] 06-05-2018 influenza, injectabl e, quadrivalent, preservative free Jessica Young PA-C Work Phone: [facility] 02-27-2017 influenza, injectabl e, quadrivalent, preservative free Jessica Young PA-C Work Phone: [facility] 10-02-2016 pneumococcal polysaccharide vaccine, 23 valent Jessica Young PA-C Work Phone: [facility] 10-02-2016 tetanus toxoid, redu maury diphtheria toxoid, and acellular pertussis vaccine, adsorbed Jessica Young PA-C Work Phone: [facility] 10-02-2016 unknown vaccine or immune globulin Julio Fernandez MD Work Phone: [facility] 04-03-2016 influenza, injectabl e, quadrivalent, preservative free Jessica Young PA-C Work Phone: [facility] 03-19-2015 influenza, high dose seasonal, preservative-free Jessica IBANEZ-C Work Phone: [facility] 03-19-2015 influenza, injectabl e, quadrivalent, preservative free Eliazar Brooks DO Work Phone: [facility] 04-27-2014 influenza, high dose seasonal, preservative-free Jessica IBANEZ-Leah Work Phone: [facility] 04-27-2014 influenza, injectabl e, quadrivalent, preservative free Eliazar Brooks DO Work Phone: [facility] Payers Date Payer Category Payer Self-pay [id number] 2024 Medicare [id number] 2023 Medicare (Managed Care) [id number]. [id number] 2023 Medicare [id number]. [id number] 2022 Medicare [id number] 2020 Medicaid [facility] MEDICAID [facility] PLAN MEDICAID [id number] 2020-Present [phone] [address] [place] [address] Medicaid [id number] 2020 Medicaid [id number]. [id number] 1968 Unknown [id number] 2.16.840.1.406766.3.579.2. 593 1968 Unknown [id number] 2.16.840.1.211849.3.579.2. 593 1968 Unknown [id number] 2.16.840.1.845930.3.579.2. 593 1968 Unknown [id number] 2.16.840.1.604165.3.579.2. 593 1968 Unknown [id number] 2.16.840.1.585454.3.579.2. 593 1968 Unknown [id number] 2.16.840.1.929638.3.579.2. 727 1968 Unknown [id number] 2.16.840.1.019544.3.579.2. 1258 1968 Unknown [id number] 2.16.840.1.618395.3.579.2. 1258 1968 Unknown [id number] 2.16.840.1.835239.3.579.2. 1258 1968 Unknown [id number] 2.16.840.1.231225.3.579.2. 1258 1968 Unknown [id number] 2.16.840.1.233562.3.579.2. 1258 1968 Unknown [id number] 2.16.840.1.798267.3.579.2. 1258 1968 Unknown [id number] 2.16.840.1.925827.3.579.2. 1258 1968 Unknown [id number] 2.16.840.1.373901.3.579.2. 1258 1968 Unknown [id number] 2.16.840.1.428969.3.579.2. 1258 1968 Unknown [id number] 2.16.840.1.502245.3.579.2. 1258 1968 Unknown [id number] 2.16.840.1.852405.3.579.2. 1258 1968 Unknown [id number] 2.16.840.1.065333.3.579.2. 1258 1968 Unknown [id number] 2.16.840.1.950417.3.579.2. 1258 1968 Unknown [id number] 2.16.840.1.746728.3.579.2. 1258 1968 Unknown [id number] 2.16.840.1.102880.3.579.2. 1258 1968 Unknown [id number] 2.16.840.1.841315.3.579.2. 1258 1968 Unknown [id number] 2.16.840.1.536630.3.579.2. 1258 1968 Unknown [id number] 2.16.840.1.628230.3.579.2. 1258 1968 Unknown [id number] 2.16.840.1.583374.3.579.2. 1258 1968 Unknown [id number] 2.16.840.1.458941.3.579.2. 1258 1968 Unknown [id number] 2.16.840.1.985134.3.579.2. 1258 1968 Unknown [id number] 2.16.840.1.448804.3.579.2. 1258 1968 Unknown [id number] 2.16.840.1.130734.3.579.2. 1258 1968 Unknown [id number] 2.16.840.1.439403.3.579.2. 1258 1968 Unknown [id number] 2.16.840.1.812812.3.579.2. 1258 1968 Unknown [id number] 2.16.840.1.472788.3.579.2. 1285 1968 Unknown [id number] 2.16.840.1.506597.3.579.2. 1285 1968 Unknown [id number] 2.16.840.1.160537.3.579.2. 1285 1968 Unknown [id number] 2.16.840.1.914970.3.579.2. 1286 1968 Unknown [id number] 2.16.840.1.700236.3.579.2. 732 1968 Unknown [id number] 2.16.840.1.730483.3.579.2. 1286 1968 Unknown [id number] 2.16.840.1.647978.3.579.2. 1286 1968 Unknown [id number] 2.16.840.1.619295.3.579.2. 727 1968 Unknown [id number] 2.16.840.1.773005.3.579.2. 727 1968 Unknown [id number] 2.16.840.1.111941.3.579.2. 727 1968 Unknown [id number] 2.16.840.1.449393.3.579.2. 7 1968 Unknown [id number] 2.16.840.1.606634.3.579.2. 727 1968 Unknown [id number] 2.16.840.1.993956.3.579.2. 1286 1959 Private Health Insurance [id number] 1959 Unknown [id number] Medicare [id number] Self-pay [id number] 2.16.840.1.823897.3.140.1. 16151.5.4 Unknown [id number] Unknown [id number] 2.16.840.1.598674.3.579.2. 531 Social History Date Type Detail Facility Tobacco smoking status Unknown if ever sm [facility] Work Phone: Start: 1970 Sex Assigned At Female [facility] Start: 09-05-2021 End: 11-13-2023 Tobacco smoking status NHIS Ex-smoker (finding) [facility] Start: 12-13-1996 End: 12-13-2016 History of tobacco use Current smoker [facility] Start: 12-13-1996 End: 12-13-2016 History of tobacco use Cigarette Smoker [facility] Start: 12-06-2017 End: 09-16-2024 Cigarettes smoked current (pack per day) - Reported 1 [facility] Start: 12-06-2017 End: 08-28-2024 Tobacco use and exposure Smokeless tobacco non-user [facility] Start: 11-01-2020 End: 07-10-2023 Alcohol intake Current drinker of alcohol (finding) [facility] Start: 08-02-2020 History SDOH Alcohol Frequency 2 [facility] Start: 08-02-2020 History SDOH Alcohol Std Drinks 3 [facility] Start: 08-08-2012 History SDOH Alcohol Comment rare [facility] Start: 08-02-2020 History SDOH Social Connections Get Together 1 [facility] Start: 08-02-2020 History SDOH Physica l Activity DPW 0 [facility] Start: 08-02-2020 History SDOH Stress 5 [facility] Start: 08-02-2020 History SDOH Financial 4 [facility] Start: 08-02-2020 Education 8 [facility] Start: 08-08-2012 End: 03-22-2022 Tobacco Comment plans to try to quit at some point but not ready. [facility] Start: 09-08-2021 End: 03-22-2022 Exposure to SARS-CoV-2 (event) Not sure [facility] Start: 08-02-2020 End: 09-16-2024 Sex Assigned At [facility] Do you belong to any clubs or organizations such as christian groups, unions, fraternal or athletic groups, or school groups? No [facility] Are you now , , , , never or living with a partner? [facility] How often to you hav e a drink containing alcohol? Monthly or less [facility] How many standard dr inks containing alcohol do you have on a typical day? 5 or 6 [facility] How often do you hav e 6 or more drinks on 1 occasion? Less than monthly [facility] How hard is it for y ou to pay for the very basics like food, housing, medical care, and heating Not very hard [facility] Start: 06-04-2023 Adult Depression Screening Assessment 5 [facility] Do you feel stress - tense, restless, nervous, or anxious, or unable to sleep at night because your mind is troubled all the time - these days [OSQ] Very much [facility] (I/We) worried wheth er (my/our) food would run out before (I/we) got money to buy more. Sometimes true [facility] Start: 08-02-2020 Gender identity Identifies as female gender (finding) [facility] Start: 08-02-2020 Sexual orientation Heterosexual (fin ever) [facility] Start: 06-05-2023 End: 08-31-2024 Alcohol intake Ex-drinker (finding) [facility] How many standard dr inks containing alcohol do you have on a typical day? 3 or 4 [facility] How hard is it for y ou to pay for the very basics like food, housing, medical care, and heating Very hard [facility] Do you feel stress - [...] use Passive smoker [facility] Tobacco [facility] Comment on above: States smokes 1 PPD Tobacco smoking status No Smokin g Status Entered [facility] Start: 07-05-2015 End: 08-24-2024 Sex Female (finding) [facility] Start: 08-28-2024 Tobacco smoking stat NHIS Occasional tobacco smoker [facility] Start: 09-16-2024 End: 09-23-2024 Alcoholic beverage intake Lifetime non-drinker (finding) [facility] Start: 1970 Sex assigned at Not on file [facility] [employer] [facility] Medical Equipment Procedure Code Equipment Code Equipment Origin al Text Equipment Identifier Dates SHOULDER ARTHROS COPY W/ POSSIBLE REPAIR Eliazar Brooks DO 02/10/24 Non Biological Shoulder L [id number] [facility] Start: 02-10-2024 [id number] Start: 09-23-2024 [id number] [...] time Functional Status Date Assessment Result Facility [facility] Mental Status Date Assessment Result Facility [facility] [employer] Clinical Notes 08-14-2021 to 10-09-2024 Telephone [...] pain. No leaking around alexis. 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 Pt is her own medical decision maker. [...] of urine, unspecified) Hx . Transferred from [facility] to [facility] on 09/18/24 d/t [facility], brain mass w shift and AMS. 1.5L retention upon admission w [facility]ON ([employer] 15.68) bilat hydro on US, improved to [...] E&M of New Patient Moderate 45-59 Min 50460 Influenza immunization status assessed 1030F Medication list [...] URL Within 6 weeks [address] [place] [address] Business (1) Additional Instructions: Patient [...] Never Smokeless Tobacco Use:. Cigarettes, Yes, 10/09/[address] [facility] Comment on [...] these instructions at home: Medicines ??? Take adav-nns-lnufiqg and prescription medicines only as told by [...] Reviewed: 01/25/2021 Elsevier Patient Education ? 20[address] [employer] [facility] 09-29-2024 Miscellaneous Notes Demetria calls stating [...] is healing well. documented in this encounter [facility] 09-29-2024 Telephone encounter Note Demetria calls stating that she would like to know about incision care and when to remove sutures- discussed that sutures are chromic and should dissolve with washing gently over them. She states that Anupama does not want to shower daily, so she will write the order to wash gently over the incision with baby shampoo. Incision is healing well. [facility] 09-29-2024 Nurse Note Summary: discharge Report called and given to [facility] Patient called and talked to daughter let her know that she was going to be leaving, patient had no belongings to send with her Patient left with [facility] - Elma Moreno RN 09/29/24 12:19 AM Multidisciplinary Rounds Attendees: Bedside RN, Unit clinical lead, PT, OT, ETHNIC ORIGINS TEACHER, and Care navigation Diet: Dietary Orders (From admission, onward) Start Ordered 09/24/24 1405 Adult diet Level 5 Minced and Moist diet; No straws Diet effective now Comments: Mildly thick liquids Question Answer Comment Diet Type: Level 5 Minced and Moist diet Additional Liquid/Fluid Modifiers: No straws 09/24/24 1407 PT OT ETHNIC ORIGINS TEACHER: PT OT ETHNIC ORIGINS TEACHER Orders (From admission, onward) Start Ordered 09/25/24 [...] Bedside RN, Unit clinical lead, PT, OT, ETHNIC ORIGINS TEACHER, and Care navigation Diet: Dietary Orders (From admission, onward) Start Ordered 09/23/242142 Adult diet Regular Texture Diet effective now Question: Diet Type: Answer: Regular Texture 09/23/242142 PT OT ETHNIC ORIGINS TEACHER: PT OT ETHNIC ORIGINS TEACHER Orders (From admission, onward) Start Ordered 09/24/24 [...] Needs PT/OT evaluation documented in this encounter [facility] 09-29-2024 Miscellaneous Notes Problem: Pain Goal: Patient goal is pain score less than 4, able to rest, and participant in treatment plan as appropriate Description: INTERVENTIONS: 1. Encourage patient or legal electroplating sales representative to report early pain and ask [...] per policy 9. Teach patient or legal electroplating sales representative interventions for comforting Outcome: Adequate for [...] at the bedside 7. Instruct patient/ patient electroplating sales representative about use of safety devices 8. Include patient/ patient electroplating sales representative in decisions related to safety Outcome: [...] hygiene technique. 7. Identify and instruct patient/patient electroplating sales representative in use of appropriate isolation precautions for identified infection/symptoms. 8. Provide and discuss with patient/patient electroplating sales representative on educational MDRO sheet. 9. Encourage and monitor nutritional status daily and consult nursing home admissions director if indicated. 10. Implement neutropenic guidelines as needed. Outcome: Adequate for Discharge Problem: Knowledge Deficit Goal: Patient/patient electroplating sales representative demonstrates understanding of disease process, treatment [...] supplement as ordered 13. Collaborate with clinical nursing home admissions director 14. Include patient/ patient's electroplating sales representative in decisions related to nutrition Outcome: [...] Moderate - High Risk Fall Score Description: Michael Fall Score of =/> 25 or indicated by [facility] Rehab Assessment Goal: Patient should be free from fall Description: Interventions: 1. [place] to environment 2. Hourly rounds addressing the [...] non-skid footwear 11. Teach patient and patient electroplating sales representative to maintain environment for safety and [...] (cane, walker) within reach 19. Request patient electroplating sales representative bring adaptive equipment/mobility aids from home or obtain and provide as needed 20. Consult pharmacy regarding effects of med's affecting mobility, cognition, and alternatives 21. Obtain physician order for PT if risk factors associated with mobility are present 22. Obtain physician order for OT as appropriate 23. Utilize diversional activities 24. Educate patient and patient electroplating sales representative how to maintain a safe environment during visitation times (notify nurse prior to leaving bedside) 25. Consider appropriateness of medical or non-medical office receptionist 26. Set up voiding schedule as appropriate [...] after meals Medications: In applesauce/puree Discharge Recommendations: jail facility Plan Frequency: 2-3days/week Duration: until discharge [...] PO intake following exam. Prognosis Services: Skilled ETHNIC ORIGINS TEACHER services to address above deficits Prognosis/Potential: Good [...] trace residue within or on pharyngeal structures [facility] Overall Impression Scores Oral Impairment Total: [...] Dysphagia Problem: Swallowing Dates: Start: 09/24/24 Disciplines: ETHNIC ORIGINS TEACHER Goal: LTG: Patient will tolerate least restrictive diet recommended by ETHNIC ORIGINS TEACHER without signs and symptoms of aspiration 90% of the time Dates: Start: 09/24/24 Expected End: 10/25/24 Disciplines: ETHNIC ORIGINS TEACHER Outcomes Date/Time User Outcome 09/28/24 1126 Laurel Moralez CCC-ETHNIC ORIGINS TEACHER Progressing Goal: STG: Patient will complete safety strategies independently during PO intake 90% of the time Dates: Start: 09/24/24 Expected End: 10/25/24 Disciplines: ETHNIC ORIGINS TEACHER Outcomes Date/Time User Outcome 09/28/24 NATANAEL Whitfield Progressing Goal: STG: Patient will complete oral/ pharyngeal strengthening program with resistance with 90% accuracy with minimal cueing Dates: Start: 09/24/24 Expected End: 10/25/24 Disciplines: ETHNIC ORIGINS TEACHER Outcomes Date/Time User Outcome 09/28/24 NATANAEL Whitfield Progressing Goal: STG: Patient will tolerate therapeutic feeding trials of advanced textures with 90% accuracy with minimal cueing Dates: Start: 09/24/24 Expected End: 10/25/24 Disciplines: ETHNIC ORIGINS TEACHER Outcomes Date/Time User Outcome 09/28/24 NATANAEL Whitfield Progressing Template: ST - Rehab Speech Problem: Auditory Comprehension Dates: Start: 09/24/24 Disciplines: ETHNIC ORIGINS TEACHER Goal: LTG: Patient will comprehend communication related to basic medical and social needs and utilize compensatory strategies to maintain safety in a functional living environment Dates: Start: 09/24/24 Expected End: 10/25/24 Disciplines: ETHNIC ORIGINS TEACHER Goal: STG: Patient will answer complex yes/no questions with 90% accuracy with minimal cueing Dates: Start: 09/24/24 Expected End: 10/25/24 Disciplines: ETHNIC ORIGINS TEACHER Goal: STG: Patient will complete 1-3 step commands with 90% accuracy with minimal cueing Dates: Start: 09/24/24 Expected End: 10/25/24 Disciplines: ETHNIC ORIGINS TEACHER Goal: STG: Patient will complete simple, phrase level auditory comprehension tasks with 90% accuracy with minimal cueing Dates: Start: 09/24/24 Expected End: 10/25/24 Disciplines: ETHNIC ORIGINS TEACHER Problem: Cognitive Linguistic Dates: Start: 09/24/24 Disciplines: ETHNIC ORIGINS TEACHER Goal: LTG: Patient will display functional cognitive-linguistic skills to demonstrate appropriate communication and safety within daily activities in a functional living environment Dates: Start: 09/24/24 Expected End: 10/25/24 Disciplines: ETHNIC ORIGINS TEACHER Goal: STG: Patient will demonstrate sustained attention by maintaining focus during a task for 10 minutes with minimal assistance Dates: Start: 09/24/24 Expected End: 10/25/24 Disciplines: ETHNIC ORIGINS TEACHER Goal: STG: Patient will be appropriately oriented to person, place, time and situation with 90% accuracy with minimal cueing Dates: Start: 09/24/24 Expected End: 10/25/24 Disciplines: ETHNIC ORIGINS TEACHER Goal: STG: Patient will describe/demonstrate/initiate use of 3 memory strategies with minimal cueing Dates: Start: 09/24/24 Expected End: 10/25/24 Disciplines: ETHNIC ORIGINS TEACHER Problem: High Level Language Dates: Start: 09/24/24 Disciplines: ETHNIC ORIGINS TEACHER Goal: LTG: Patient will demonstrate use of self-awareness, goal setting, planning, initiation, self-monitoring and problem solving during daily activities to improve safety and awareness in a functional living environment Dates: Start: 09/24/24 Expected End: 10/25/24 Disciplines: ETHNIC ORIGINS TEACHER Goal: STG: Patient will demonstrate functional problem solving and safety awareness with 90% accuracy in daily living tasks in order to increase safe interactions with environment and decrease assistance from caregivers Dates: Start: 09/24/24 Expected End: 10/25/24 Disciplines: ETHNIC ORIGINS TEACHER Problem: Speech Production Dates: Start: 09/24/24 Disciplines: ETHNIC ORIGINS TEACHER Goal: LTG: Patient will develop functional and intelligible speech and utilize compensatory strategies through the use of adequate labial and lingual function, increased articulatory precision and speech prosody Dates: Start: 09/24/24 Expected End: 10/25/24 Disciplines: ETHNIC ORIGINS TEACHER Goal: STG: Patient will use appropriate articulatory accuracy and speech rate when reading/speaking with 90% accuracy with minimal cueing Dates: Start: 09/24/24 Expected End: 10/25/24 Disciplines: ETHNIC ORIGINS TEACHER Goal: STG: Patient will complete rapid alternating verbal sequences (tongue twisters) with improved articulatory precision with 90% accuracy with minimal cueing Dates: Start: 09/24/24 Expected End: 10/25/24 Disciplines: ETHNIC ORIGINS TEACHER Problem: Verbal Expression Dates: Start: 09/24/24 Disciplines: ETHNIC ORIGINS TEACHER Goal: LTG: Patient will utilize compensatory strategies to communicate wants and needs effectively to different conversational partners, maintain safety and participate socially in a functional living environment Dates: Start: 09/24/24 Expected End: 10/25/24 Disciplines: ETHNIC ORIGINS TEACHER Goal: STG: Patient will describe objects, pictures (salient features) with 90% accuracy with minimal cueing to improve word retrieval skills Dates: Start: 09/24/24 Expected End: 10/25/24 Disciplines: ETHNIC ORIGINS TEACHER Goal: STG: Patient will respond to simple/complex open ended questions during activities of daily living with 90% accuracy with minimal cueing Dates: Start: 09/24/24 Expected End: 10/25/24 Disciplines: ETHNIC ORIGINS TEACHER Goal: STG: Patient will complete simple to complex divergent and convergent naming tasks with 90% accuracy with minimal cueing to improve thought organization Dates: Start: 09/24/24 Expected End: 10/25/24 Disciplines: ETHNIC ORIGINS TEACHER Speech Therapy Care Plan (Resolved) There are no resolved problems. Principal Problem: Altered mental status, unspecified altered mental status type Active Problems: Generalized anxiety disorder with panic attacks Hyperlipidemia, acquired Multiple sclerosis (CMS-HCC) LORENZO (obstructive sleep apnea) Primary hypertension Depression, unspecified Dysphagia, oropharyngeal phase DISCHARGE PLANNING NOTE BLS via PTN scheduled for today 09/28/24 at 4 PM to [facility]. confirmed in [facility]. DISCHARGE PLANNING NOTE Prior Auth approved for admission to : [facility] (P#: ; F#: ) Approval # [id number] Valid for Dates: 09/28/2024 - 09/30/2024 Speech Therapy Dysphagia Treatment Note Assessment: Current Diet Tolerance: Level 2 Mildly Thick and Level 5 Minced and Moist Progress: improving Pain Assessment Pain Assessment: No/denies pain Recommendations Diet: Level 5 minced and moist diet, level 2 mildly thick liquids (no straws) Discharge: [facility] Facility Precautions Aspiration Plan: Plan of Care: [...] Dysphagia Problem: Swallowing Dates: Start: 09/24/24 Disciplines: ETHNIC ORIGINS TEACHER Goal: LTG: Patient will tolerate least restrictive diet recommended by ETHNIC ORIGINS TEACHER without signs and symptoms of aspiration 90% of the time Dates: Start: 09/24/24 Expected End: 10/25/24 Disciplines: ETHNIC ORIGINS TEACHER Outcomes Date/Time User Outcome 09/28/24 MARCELA WhitfieldETHNIC ORIGINS TEACHER Progressing Goal: STG: Patient will complete safety strategies independently during PO intake 90% of the time Dates: Start: 09/24/24 Expected End: 10/25/24 Disciplines: ETHNIC ORIGINS TEACHER Outcomes Date/Time User Outcome 09/28/24 MARCELA WhitfieldETHNIC ORIGINS TEACHER Progressing Goal: STG: Patient will complete oral/ pharyngeal strengthening program with resistance with 90% accuracy with minimal cueing Dates: Start: 09/24/24 Expected End: 10/25/24 Disciplines: ETHNIC ORIGINS TEACHER Outcomes Date/Time User Outcome 09/28/24 MARCELA WhitfieldETHNIC ORIGINS TEACHER Progressing Goal: STG: Patient will tolerate therapeutic feeding trials of advanced textures with 90% accuracy with minimal cueing Dates: Start: 09/24/24 Expected End: 10/25/24 Disciplines: ETHNIC ORIGINS TEACHER Outcomes Date/Time User Outcome 09/28/24 MARCELA WhitfieldETHNIC ORIGINS TEACHER Progressing Template: ST - Rehab Speech Problem: Auditory Comprehension Dates: Start: 09/24/24 Disciplines: ETHNIC ORIGINS TEACHER Goal: LTG: Patient will comprehend communication related to basic medical and social needs and utilize compensatory strategies to maintain safety in a functional living environment Dates: Start: 09/24/24 Expected End: 10/25/24 Disciplines: ETHNIC ORIGINS TEACHER Goal: STG: Patient will answer complex yes/no questions with 90% accuracy with minimal cueing Dates: Start: 09/24/24 Expected End: 10/25/24 Disciplines: ETHNIC ORIGINS TEACHER Goal: STG: Patient will complete 1-3 step commands with 90% accuracy with minimal cueing Dates: Start: 09/24/24 Expected End: 10/25/24 Disciplines: ETHNIC ORIGINS TEACHER Goal: STG: Patient will complete simple, phrase level auditory comprehension tasks with 90% accuracy with minimal cueing Dates: Start: 09/24/24 Expected End: 10/25/24 Disciplines: ETHNIC ORIGINS TEACHER Problem: Cognitive Linguistic Dates: Start: 09/24/24 Disciplines: ETHNIC ORIGINS TEACHER Goal: LTG: Patient will display functional cognitive-linguistic skills to demonstrate appropriate communication and safety within daily activities in a functional living environment Dates: Start: 09/24/24 Expected End: 10/25/24 Disciplines: ETHNIC ORIGINS TEACHER Goal: STG: Patient will demonstrate sustained attention by maintaining focus during a task for 10 minutes with minimal assistance Dates: Start: 09/24/24 Expected End: 10/25/24 Disciplines: ETHNIC ORIGINS TEACHER Goal: STG: Patient will be appropriately oriented to person, place, time and situation with 90% accuracy with minimal cueing Dates: Start: 09/24/24 Expected End: 10/25/24 Disciplines: ETHNIC ORIGINS TEACHER Goal: STG: Patient will describe/demonstrate/initiate use of 3 memory strategies with minimal cueing Dates: Start: 09/24/24 Expected End: 10/25/24 Disciplines: ETHNIC ORIGINS TEACHER Problem: High Level Language Dates: Start: 09/24/24 Disciplines: ETHNIC ORIGINS TEACHER Goal: LTG: Patient will demonstrate use of self-awareness, goal setting, planning, initiation, self-monitoring and problem solving during daily activities to improve safety and awareness in a functional living environment Dates: Start: 09/24/24 Expected End: 10/25/24 Disciplines: ETHNIC ORIGINS TEACHER Goal: STG: Patient will demonstrate functional problem solving and safety awareness with 90% accuracy in daily living tasks in order to increase safe interactions with environment and decrease assistance from caregivers Dates: Start: 09/24/24 Expected End: 10/25/24 Disciplines: ETHNIC ORIGINS TEACHER Problem: Speech Production Dates: Start: 09/24/24 Disciplines: ETHNIC ORIGINS TEACHER Goal: LTG: Patient will develop functional and intelligible speech and utilize compensatory strategies through the use of adequate labial and lingual function, increased articulatory precision and speech prosody Dates: Start: 09/24/24 Expected End: 10/25/24 Disciplines: ETHNIC ORIGINS TEACHER Goal: STG: Patient will use appropriate articulatory accuracy and speech rate when reading/speaking with 90% accuracy with minimal cueing Dates: Start: 09/24/24 Expected End: 10/25/24 Disciplines: ETHNIC ORIGINS TEACHER Goal: STG: Patient will complete rapid alternating verbal sequences (tongue twisters) with improved articulatory precision with 90% accuracy with minimal cueing Dates: Start: 09/24/24 Expected End: 10/25/24 Disciplines: ETHNIC ORIGINS TEACHER Problem: Verbal Expression Dates: Start: 09/24/24 Disciplines: ETHNIC ORIGINS TEACHER Goal: LTG: Patient will utilize compensatory strategies to communicate wants and needs effectively to different conversational partners, maintain safety and participate socially in a functional living environment Dates: Start: 09/24/24 Expected End: 10/25/24 Disciplines: ETHNIC ORIGINS TEACHER Goal: STG: Patient will describe objects, pictures (salient features) with 90% accuracy with minimal cueing to improve word retrieval skills Dates: Start: 09/24/24 Expected End: 10/25/24 Disciplines: ETHNIC ORIGINS TEACHER Goal: STG: Patient will respond to simple/complex open ended questions during activities of daily living with 90% accuracy with minimal cueing Dates: Start: 09/24/24 Expected End: 10/25/24 Disciplines: ETHNIC ORIGINS TEACHER Goal: STG: Patient will complete simple to complex divergent and convergent naming tasks with 90% accuracy with minimal cueing to improve thought organization Dates: Start: 09/24/24 Expected End: 10/25/24 Disciplines: ETHNIC ORIGINS TEACHER Speech Therapy Care Plan (Resolved) There are [...] Description: INTERVENTIONS: 1. Encourage patient or legal electroplating sales representative to report early pain and ask [...] per policy 9. Teach patient or legal electroplating sales representative interventions for comforting Outcome: Progressing Note: [...] at the bedside 7. Instruct patient/ patient electroplating sales representative about use of safety devices 8. Include patient/ patient electroplating sales representative in decisions related to safety Outcome: [...] hygiene technique. 7. Identify and instruct patient/patient electroplating sales representative in use of appropriate isolation precautions for identified infection/symptoms. 8. Provide and discuss with patient/patient electroplating sales representative on educational MDRO sheet. 9. Encourage and monitor nutritional status daily and consult nursing home admissions director if indicated. 10. Implement neutropenic guidelines as needed. Outcome: Progressing Note: Evaluation of progress towards goal: hand hygiene is preformed when entering and leaving the room. And no new s/s of infection are present. Will continue to monitor Problem: Knowledge Deficit Goal: Patient/patient electroplating sales representative demonstrates understanding of disease process, treatment [...] supplement as ordered 13. Collaborate with clinical nursing home admissions director 14. Include patient/ patient's electroplating sales representative in decisions related to nutrition Outcome: [...] be free from fall Description: Interventions: 1. [place] to environment 2. Hourly rounds addressing the [...] non-skid footwear 11. Teach patient and patient electroplating sales representative to maintain environment for safety and [...] (cane, walker) within reach 19. Request patient electroplating sales representative bring adaptive equipment/mobility aids from home or obtain and provide as needed 20. Consult pharmacy regarding effects of med's affecting mobility, cognition, and alternatives 21. Obtain physician order for PT if risk factors associated with mobility are present 22. Obtain physician order for OT as appropriate 23. Utilize diversional activities 24. Educate patient and patient electroplating sales representative how to maintain a safe environment during visitation times (notify nurse prior to leaving bedside) 25. Consider appropriateness of medical or non-medical office receptionist 26. Set up voiding schedule as appropriate [...] discharge at this time, awaiting precert to intermediate facility. JACQUELINE Ayala 09/28/24 1016 DISCHARGE PLANNING NOTE Case discussed in daily transition rounds and chart reviewed by CN. Barriers to discharge include SNF precert Discharge Plan remains: return to [facility] SNF. Waiting insurance approval for SNF stay- precert initiated on 09/26. Family is aware and agreeable to transition plan. CN will continue to follow and is available should any further needs arise. - RAMIREZ COTTO 09/28/24 9:44 AM Insurance approved SNF stay. Discharge written, CRF complete. Social work task [facility] to arrange BLS transport and [facility] ambulance was arranged. [facility] notified of discharge and CRF sent. RN [...] Description: INTERVENTIONS: 1. Encourage patient or legal electroplating sales representative to report early pain and ask [...] per policy 9. Teach patient or legal electroplating sales representative interventions for comforting Outcome: Progressing Note: [...] at the bedside 7. Instruct patient/ patient electroplating sales representative about use of safety devices 8. Include patient/ patient electroplating sales representative in decisions related to safety Outcome: [...] hygiene technique. 7. Identify and instruct patient/patient electroplating sales representative in use of appropriate isolation precautions for identified infection/symptoms. 8. Provide and discuss with patient/patient electroplating sales representative on educational MDRO sheet. 9. Encourage and monitor nutritional status daily and consult nursing home admissions director if indicated. 10. Implement neutropenic guidelines as needed. Outcome: Progressing Note: Evaluation of progress towards goal: First Aid Teacher assessed pt risk for infection in the beginning and throughout shift. Pt remains afebrile. Will continue to monitor. Problem: Knowledge Deficit Goal: Patient/patient electroplating sales representative demonstrates understanding of disease process, treatment plan, medications, and discharge instructions Description: INTERVENTIONS 1. Complete learning assessment and assess knowledge base 2. Provide teaching at level of understanding 3. Provide teaching via preferred learning method(s) Outcome: Progressing Note: Evaluation of progress towards goal: First Aid Teacher educated pt on admission disease, medications, treatment, [...] supplement as ordered 13. Collaborate with clinical nursing home admissions director 14. Include patient/ patient's electroplating sales representative in decisions related to nutrition Outcome: [...] Score of =/> 25 or indicated by [facility] Assessment Goal: Patient should be free from fall Description: Interventions: 1. [place] to environment 2. Hourly rounds addressing the [...] non-skid footwear 11. Teach patient and patient electroplating sales representative to maintain environment for safety and [...] (cane, walker) within reach 19. Request patient electroplating sales representative bring adaptive equipment/mobility aids from home or obtain and provide as needed 20. Consult pharmacy regarding effects of med's affecting mobility, cognition, and alternatives 21. Obtain physician order for PT if risk factors associated with mobility are present 22. Obtain physician order for OT as appropriate 23. Utilize diversional activities 24. Educate patient and patient electroplating sales representative how to maintain a safe environment during visitation times (notify nurse prior to leaving bedside) 25. Consider appropriateness of medical or non-medical office receptionist 26. Set up voiding schedule as appropriate (every 2 hours) Outcome: Progressing Note: Evaluation of progress towards goal: First Aid Teacher assessed pt fall precautions in the beginning [...] Description: INTERVENTIONS: 1. Encourage patient or legal electroplating sales representative to report early pain and ask [...] per policy 9. Teach patient or legal electroplating sales representative interventions for comforting Outcome: Progressing Note: [...] at the bedside 7. Instruct patient/ patient electroplating sales representative about use of safety devices 8. Include patient/ patient electroplating sales representative in decisions related to safety Outcome: [...] hygiene technique. 7. Identify and instruct patient/patient electroplating sales representative in use of appropriate isolation precautions for identified infection/symptoms. 8. Provide and discuss with patient/patient electroplating sales representative on educational MDRO sheet. 9. Encourage and monitor nutritional status daily and consult nursing home admissions director if indicated. 10. Implement neutropenic guidelines as needed. Outcome: Progressing Note: Evaluation of progress towards goal: Patient remains afebrile with absence of typical signs of infection such as redness, swelling, purulent drainage, etc. Labs remain within defined limits. Infection preventative measures maintained. Will continue to monitor patient for any signs or symptoms indicating infection while providing care. Problem: Knowledge Deficit Goal: Patient/patient electroplating sales representative demonstrates understanding of disease process, treatment [...] supplement as ordered 13. Collaborate with clinical nursing home admissions director 14. Include patient/ patient's electroplating sales representative in decisions related to nutrition Outcome: Progressing Note: Evaluation of progress towards goal: Patient/patient's electroplating sales representative is involved in decisions related to [...] Score of =/> 25 or indicated by [facility] Assessment Goal: Patient should be free from fall Description: Interventions: 1. [place] to environment 2. Hourly rounds addressing the [...] non-skid footwear 11. Teach patient and patient electroplating sales representative to maintain environment for safety and [...] (cane, walker) within reach 19. Request patient electroplating sales representative bring adaptive equipment/mobility aids from home or obtain and provide as needed 20. Consult pharmacy regarding effects of med's affecting mobility, cognition, and alternatives 21. Obtain physician order for PT if risk factors associated with mobility are present 22. Obtain physician order for OT as appropriate 23. Utilize diversional activities 24. Educate patient and patient electroplating sales representative how to maintain a safe environment during visitation times (notify nurse prior to leaving bedside) 25. Consider appropriateness of medical or non-medical office receptionist 26. Set up voiding schedule as appropriate [...] Description: INTERVENTIONS: 1. Encourage patient or legal electroplating sales representative to report early pain and ask [...] per policy 9. Teach patient or legal electroplating sales representative interventions for comforting Outcome: Progressing Note: [...] at the bedside 7. Instruct patient/ patient electroplating sales representative about use of safety devices 8. Include patient/ patient electroplating sales representative in decisions related to safety Outcome: Progressing Note: Evaluation of progress towards goal: Patient free from injury; bed to low position; skid free socks applied; call light in reach Problem: Knowledge Deficit Goal: Patient/patient electroplating sales representative demonstrates understanding of disease process, treatment [...] Description: INTERVENTIONS: 1. Encourage patient or legal electroplating sales representative to report early pain and ask [...] per policy 9. Teach patient or legal electroplating sales representative interventions for comforting Outcome: Progressing Note: [...] at the bedside 7. Instruct patient/ patient electroplating sales representative about use of safety devices 8. Include patient/ patient electroplating sales representative in decisions related to safety Outcome: [...] hygiene technique. 7. Identify and instruct patient/patient electroplating sales representative in use of appropriate isolation precautions for identified infection/symptoms. 8. Provide and discuss with patient/patient electroplating sales representative on educational MDRO sheet. 9. Encourage and monitor nutritional status daily and consult nursing home admissions director if indicated. 10. Implement neutropenic guidelines as needed. Outcome: Progressing Note: Evaluation of progress towards goal: Patient remains afebrile with absence of typical signs of infection such as redness, swelling, purulent drainage, etc. Labs remain within defined limits. Infection preventative measures maintained. Will continue to monitor patient for any signs or symptoms indicating infection while providing care. \ Problem: Knowledge Deficit Goal: Patient/patient electroplating sales representative demonstrates understanding of disease process, treatment [...] supplement as ordered 13. Collaborate with clinical nursing home admissions director 14. Include patient/ patient's electroplating sales representative in decisions related to nutrition Outcome: Progressing Note: Evaluation of progress towards goal: Patient/patient's electroplating sales representative is involved in decisions related to [...] be free from fall Description: Interventions: 1. [place] to environment 2. Hourly rounds addressing the [...] non-skid footwear 11. Teach patient and patient electroplating sales representative to maintain environment for safety and [...] (cane, walker) within reach 19. Request patient electroplating sales representative bring adaptive equipment/mobility aids from home or obtain and provide as needed 20. Consult pharmacy regarding effects of med's affecting mobility, cognition, and alternatives 21. Obtain physician order for PT if risk factors associated with mobility are present 22. Obtain physician order for OT as appropriate 23. Utilize diversional activities 24. Educate patient and patient electroplating sales representative how to maintain a safe environment during visitation times (notify nurse prior to leaving bedside) 25. Consider appropriateness of medical or non-medical office receptionist 26. Set up voiding schedule as appropriate [...] auth submitted to: [employer] Via: [employer] On behalf of : [facility] (P#: ; F#: ) Ref# [id number] DISCHARGE PLANNING NOTE Case discussed in daily transition rounds and chart reviewed by CN. Barriers to discharge include IV Decadron, IV Keppra, D2.5, IV Mag Discharge Plan remains: return to [facility] SNF. PT/OT recommending SNF. Social work sent therapy evaluations to [facility] and they are ready to accept patient [...] Description: INTERVENTIONS: 1. Encourage patient or legal electroplating sales representative to report early pain and ask [...] per policy 9. Teach patient or legal electroplating sales representative interventions for comforting Outcome: Progressing Note: [...] at the bedside 7. Instruct patient/ patient electroplating sales representative about use of safety devices 8. Include patient/ patient electroplating sales representative in decisions related to safety Outcome: Progressing Note: Evaluation of progress towards goal: Patient free from injury; bed to low position; skid free socks applied; call light in reach Problem: Knowledge Deficit Goal: Patient/patient electroplating sales representative demonstrates understanding of disease process, treatment [...] Therapy Evaluation Discharge Recommendations OT Recommendations : [facility] SNF/ECF Comments: Recommend SNF to inc [...] admitted 5/2/25 from SNF, initially went to [place] ED for altered mental status, CT shows 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 with Shift,transfer to [facility] overnight-admit to MICU 09/19: Consults to nephrology [...] Medical History: Diagnosis Date MS (multiple sclerosis) ([facility]) 2012 Past Surgical History: Procedure Laterality Date CARPAL TUNNEL RELEASE Left SHOULDER ARTHROSCOPY W/ ROTATOR CUFF REPAIR Left SYNAPTIVE CRANIOTOMY EXCISION TUMOR Right 09/23/2024 Performed by Jair Espinal MD at [facility] OT Treatment/Interventions: Functional transfer training, ADL retraining, [...] skinny stedy, arterial line, alexis, repositioning sling Telemetry/Alumni Secretary: Yes Oxygen Used: room air Other: high [...] month. 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 with Shift,transfer to [facility] overnight-admit to MICU 09/19: Consults to nephrology [...] Medical History: Diagnosis Date MS (multiple sclerosis) ([facility]) 2012 Past Surgical History: Procedure Laterality Date CARPAL TUNNEL RELEASE Left SHOULDER ARTHROSCOPY W/ ROTATOR CUFF REPAIR Left SYNAPTIVE CRANIOTOMY EXCISION TUMOR Right 09/23/2024 Performed by Jair Espinal MD at [facility] PT Treatment/Interventions: Functional transfer training, LE strengthening/ROM, [...] gait belt, skinny stedy, arterial line, alexis Telemetry/Alumni Secretary: Yes Oxygen Used: room air Other: high [...] poor historian, asking for pizza and calling field underwriter whit, pt tried to pull out IV [...] to: SNF Discharge Disposition SNF SNF Name [facility] Phone: [facility] SNF Accepted? Yes Does the patient need discharge transportation arranged? Yes Transportation Arranged Ambulance Patient choice offered Yes List Provided Patient declined Patient Declined Active with Provider Case discussed in daily transition rounds and chart reviewed by CN. Barriers to discharge include PT/OT to see, alexis, wounds(skin tears), monitoring neuro status. Discharge Plan remains: [facility]. Tasked [facility] to send updated clinical notes. Will need PT/OT to see before we can submit for auth. CN reached out to therapy and was told patient is on list to be seen today. . CN will continue to follow and is available should any further needs arise. - Manjinder Suresh RN 09/25/24 2:25 PM DISCHARGE PLANNING NOTE Updates to [facility] (P#: ; F#: ) Problem: Pain Goal: Patient goal is pain score less than 4, able to rest, and participant in treatment plan as appropriate Description: INTERVENTIONS: 1. Encourage patient or legal electroplating sales representative to report early pain and ask [...] per policy 9. Teach patient or legal electroplating sales representative interventions for comforting Outcome: Progressing Note: [...] at the bedside 7. Instruct patient/ patient electroplating sales representative about use of safety devices 8. Include patient/ patient electroplating sales representative in decisions related to safety Outcome: [...] hygiene technique. 7. Identify and instruct patient/patient electroplating sales representative in use of appropriate isolation precautions for identified infection/symptoms. 8. Provide and discuss with patient/patient electroplating sales representative on educational MDRO sheet. 9. Encourage and monitor nutritional status daily and consult nursing home admissions director if indicated. 10. Implement neutropenic guidelines as needed. Outcome: Progressing Note: Evaluation of progress towards goal: Patient remains free from signs of infection at this time. Will continue to monitor. Problem: Knowledge Deficit Goal: Patient/patient electroplating sales representative demonstrates understanding of disease process, treatment [...] supplement as ordered 13. Collaborate with clinical nursing home admissions director 14. Include patient/ patient's electroplating sales representative in decisions related to nutrition Outcome: [...] Score of =/> [facility] Goal: Patient should be free from fall Description: Interventions: 1. [place] to environment 2. Hourly rounds addressing the [...] non-skid footwear 11. Teach patient and patient electroplating sales representative to maintain environment for safety and [...] (cane, walker) within reach 19. Request patient electroplating sales representative bring adaptive equipment/mobility aids from home or obtain and provide as needed 20. Consult pharmacy regarding effects of med's affecting mobility, cognition, and alternatives 21. Obtain physician order for PT if risk factors associated with mobility are present 22. Obtain physician order for OT as appropriate 23. Utilize diversional activities 24. Educate patient and patient electroplating sales representative how to maintain a safe environment during visitation times (notify nurse prior to leaving bedside) 25. Consider appropriateness of medical or non-medical office receptionist 26. Set up voiding schedule as appropriate [...] Description: INTERVENTIONS: 1. Encourage patient or legal electroplating sales representative to report early pain and ask [...] per policy 9. Teach patient or legal electroplating sales representative interventions for comforting Outcome: Progressing Note: [...] at the bedside 7. Instruct patient/ patient electroplating sales representative about use of safety devices 8. Include patient/ patient electroplating sales representative in decisions related to safety Outcome: [...] hygiene technique. 7. Identify and instruct patient/patient electroplating sales representative in use of appropriate isolation precautions for identified infection/symptoms. 8. Provide and discuss with patient/patient electroplating sales representative on educational MDRO sheet. 9. Encourage and monitor nutritional status daily and consult nursing home admissions director if indicated. 10. Implement neutropenic guidelines as needed. Outcome: Progressing Note: Evaluation of progress towards goal: Patient remains free from signs of infection at this time. Will continue to monitor. Problem: Knowledge Deficit Goal: Patient/patient electroplating sales representative demonstrates understanding of disease process, treatment [...] Score of =/> 25 or indicated by [facility] Assessment Goal: Patient should be free from fall Description: Interventions: 1. [place] to environment 2. Hourly rounds addressing the [...] non-skid footwear 11. Teach patient and patient electroplating sales representative to maintain environment for safety and [...] (cane, walker) within reach 19. Request patient electroplating sales representative bring adaptive equipment/mobility aids from home or obtain and provide as needed 20. Consult pharmacy regarding effects of med's affecting mobility, cognition, and alternatives 21. Obtain physician order for PT if risk factors associated with mobility are present 22. Obtain physician order for OT as appropriate 23. Utilize diversional activities 24. Educate patient and patient electroplating sales representative how to maintain a safe environment during visitation times (notify nurse prior to leaving bedside) 25. Consider appropriateness of medical or non-medical office receptionist 26. Set up voiding schedule as appropriate [...] to see. Discharge Plan remains: Return to [facility]-will need precert. CN will continue to follow [...] strategies Medications: In applesauce/puree Referrals: Dysphagia therapy, Histology Specialist Discharge Recommendations: (ongoing ST services) Pt educated [...] with h/o MS, who initially presented to [facility] 09/18 from her rehab facility with complaints of altered mental status. Per chart review patient was recently treated for rhabdomyolysis. 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 Pt was transferred to [facility] for neurosurgery consult. 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 Speech consulted post operatively to assess swallow function prior to diet initiation. Prognosis Services: Skilled ETHNIC ORIGINS TEACHER services to address above deficits Prognosis/Potential: Good [...] Dysphagia Problem: Swallowing Dates: Start: 09/24/24 Disciplines: ETHNIC ORIGINS TEACHER Goal: LTG: Patient will tolerate least restrictive diet recommended by ETHNIC ORIGINS TEACHER without signs and symptoms of aspiration 90% of the time Dates: Start: 09/24/24 Expected End: 10/25/24 Disciplines: ETHNIC ORIGINS TEACHER Goal: STG: Patient will complete safety strategies independently during PO intake 90% of the time Dates: Start: 09/24/24 Expected End: 10/25/24 Disciplines: ETHNIC ORIGINS TEACHER Goal: STG: Patient will complete oral/ pharyngeal strengthening program with resistance with 90% accuracy with minimal cueing Dates: Start: 09/24/24 Expected End: 10/25/24 Disciplines: ETHNIC ORIGINS TEACHER Goal: STG: Patient will tolerate therapeutic feeding trials of advanced textures with 90% accuracy with minimal cueing Dates: Start: 09/24/24 Expected End: 10/25/24 Disciplines: ETHNIC ORIGINS TEACHER Template: ST - Rehab Speech Problem: Auditory Comprehension Dates: Start: 09/24/24 Disciplines: ETHNIC ORIGINS TEACHER Goal: LTG: Patient will comprehend communication related to basic medical and social needs and utilize compensatory strategies to maintain safety in a functional living environment Dates: Start: 09/24/24 Expected End: 10/25/24 Disciplines: ETHNIC ORIGINS TEACHER Goal: STG: Patient will answer complex yes/no questions with 90% accuracy with minimal cueing Dates: Start: 09/24/24 Expected End: 10/25/24 Disciplines: ETHNIC ORIGINS TEACHER Goal: STG: Patient will complete 1-3 step commands with 90% accuracy with minimal cueing Dates: Start: 09/24/24 Expected End: 10/25/24 Disciplines: ETHNIC ORIGINS TEACHER Goal: STG: Patient will complete simple, phrase level auditory comprehension tasks with 90% accuracy with minimal cueing Dates: Start: 09/24/24 Expected End: 10/25/24 Disciplines: ETHNIC ORIGINS TEACHER Problem: Cognitive Linguistic Dates: Start: 09/24/24 Disciplines: ETHNIC ORIGINS TEACHER Goal: LTG: Patient will display functional cognitive-linguistic skills to demonstrate appropriate communication and safety within daily activities in a functional living environment Dates: Start: 09/24/24 Expected End: 10/25/24 Disciplines: ETHNIC ORIGINS TEACHER Goal: STG: Patient will demonstrate sustained attention by maintaining focus during a task for 10 minutes with minimal assistance Dates: Start: 09/24/24 Expected End: 10/25/24 Disciplines: ETHNIC ORIGINS TEACHER Goal: STG: Patient will be appropriately oriented to person, place, time and situation with 90% accuracy with minimal cueing Dates: Start: 09/24/24 Expected End: 10/25/24 Disciplines: ETHNIC ORIGINS TEACHER Goal: STG: Patient will describe/demonstrate/initiate use of 3 memory strategies with minimal cueing Dates: Start: 09/24/24 Expected End: 10/25/24 Disciplines: ETHNIC ORIGINS TEACHER Problem: High Level Language Dates: Start: 09/24/24 Disciplines: ETHNIC ORIGINS TEACHER Goal: LTG: Patient will demonstrate use of self-awareness, goal setting, planning, initiation, self-monitoring and problem solving during daily activities to improve safety and awareness in a functional living environment Dates: Start: 09/24/24 Expected End: 10/25/24 Disciplines: ETHNIC ORIGINS TEACHER Goal: STG: Patient will demonstrate functional problem solving and safety awareness with 90% accuracy in daily living tasks in order to increase safe interactions with environment and decrease assistance from caregivers Dates: Start: 09/24/24 Expected End: 10/25/24 Disciplines: ETHNIC ORIGINS TEACHER Problem: Speech Production Dates: Start: 09/24/24 Disciplines: ETHNIC ORIGINS TEACHER Goal: LTG: Patient will develop functional and intelligible speech and utilize compensatory strategies through the use of adequate labial and lingual function, increased articulatory precision and speech prosody Dates: Start: 09/24/24 Expected End: 10/25/24 Disciplines: ETHNIC ORIGINS TEACHER Goal: STG: Patient will use appropriate articulatory accuracy and speech rate when reading/speaking with 90% accuracy with minimal cueing Dates: Start: 09/24/24 Expected End: 10/25/24 Disciplines: ETHNIC ORIGINS TEACHER Goal: STG: Patient will complete rapid alternating verbal sequences (tongue twisters) with improved articulatory precision with 90% accuracy with minimal cueing Dates: Start: 09/24/24 Expected End: 10/25/24 Disciplines: ETHNIC ORIGINS TEACHER Problem: Verbal Expression Dates: Start: 09/24/24 Disciplines: ETHNIC ORIGINS TEACHER Goal: LTG: Patient will utilize compensatory strategies to communicate wants and needs effectively to different conversational partners, maintain safety and participate socially in a functional living environment Dates: Start: 09/24/24 Expected End: 10/25/24 Disciplines: ETHNIC ORIGINS TEACHER Goal: STG: Patient will describe objects, pictures (salient features) with 90% accuracy with minimal cueing to improve word retrieval skills Dates: Start: 09/24/24 Expected End: 10/25/24 Disciplines: ETHNIC ORIGINS TEACHER Goal: STG: Patient will respond to simple/complex open ended questions during activities of daily living with 90% accuracy with minimal cueing Dates: Start: 09/24/24 Expected End: 10/25/24 Disciplines: ETHNIC ORIGINS TEACHER Goal: STG: Patient will complete simple to complex divergent and convergent naming tasks with 90% accuracy with minimal cueing to improve thought organization Dates: Start: 09/24/24 Expected End: 10/25/24 Disciplines: ETHNIC ORIGINS TEACHER Speech Therapy Care Plan (Resolved) There are [...] swallow. Please place order. Prognosis Services: Skilled ETHNIC ORIGINS TEACHER services to address above deficits Prognosis/Potential: Good [...] continue to follow along. Prognosis Services: Skilled ETHNIC ORIGINS TEACHER services to address the above deficits Prognosis/Potential: [...] Dysphagia Problem: Swallowing Dates: Start: 09/24/24 Disciplines: ETHNIC ORIGINS TEACHER Goal: LTG: Patient will tolerate least restrictive diet recommended by ETHNIC ORIGINS TEACHER without signs and symptoms of aspiration 90% of the time Dates: Start: 09/24/24 Expected End: 10/25/24 Disciplines: ETHNIC ORIGINS TEACHER Goal: STG: Patient will complete safety strategies independently during PO intake 90% of the time Dates: Start: 09/24/24 Expected End: 10/25/24 Disciplines: ETHNIC ORIGINS TEACHER Goal: STG: Patient will complete oral/ pharyngeal strengthening program with resistance with 90% accuracy with minimal cueing Dates: Start: 09/24/24 Expected End: 10/25/24 Disciplines: ETHNIC ORIGINS TEACHER Goal: STG: Patient will tolerate therapeutic feeding trials of advanced textures with 90% accuracy with minimal cueing Dates: Start: 09/24/24 Expected End: 10/25/24 Disciplines: ETHNIC ORIGINS TEACHER Template: ST - Rehab Speech Problem: Auditory Comprehension Dates: Start: 09/24/24 Disciplines: ETHNIC ORIGINS TEACHER Goal: LTG: Patient will comprehend communication related to basic medical and social needs and utilize compensatory strategies to maintain safety in a functional living environment Dates: Start: 09/24/24 Expected End: 10/25/24 Disciplines: ETHNIC ORIGINS TEACHER Goal: STG: Patient will answer complex yes/no questions with 90% accuracy with minimal cueing Dates: Start: 09/24/24 Expected End: 10/25/24 Disciplines: ETHNIC ORIGINS TEACHER Goal: STG: Patient will complete 1-3 step commands with 90% accuracy with minimal cueing Dates: Start: 09/24/24 Expected End: 10/25/24 Disciplines: ETHNIC ORIGINS TEACHER Goal: STG: Patient will complete simple, phrase level auditory comprehension tasks with 90% accuracy with minimal cueing Dates: Start: 09/24/24 Expected End: 10/25/24 Disciplines: ETHNIC ORIGINS TEACHER Problem: Cognitive Linguistic Dates: Start: 09/24/24 Disciplines: ETHNIC ORIGINS TEACHER Goal: LTG: Patient will display functional cognitive-linguistic skills to demonstrate appropriate communication and safety within daily activities in a functional living environment Dates: Start: 09/24/24 Expected End: 10/25/24 Disciplines: ETHNIC ORIGINS TEACHER Goal: STG: Patient will demonstrate sustained attention by maintaining focus during a task for 10 minutes with minimal assistance Dates: Start: 09/24/24 Expected End: 10/25/24 Disciplines: ETHNIC ORIGINS TEACHER Goal: STG: Patient will be appropriately oriented to person, place, time and situation with 90% accuracy with minimal cueing Dates: Start: 09/24/24 Expected End: 10/25/24 Disciplines: ETHNIC ORIGINS TEACHER Goal: STG: Patient will describe/demonstrate/initiate use of 3 memory strategies with minimal cueing Dates: Start: 09/24/24 Expected End: 10/25/24 Disciplines: ETHNIC ORIGINS TEACHER Problem: High Level Language Dates: Start: 09/24/24 Disciplines: ETHNIC ORIGINS TEACHER Goal: LTG: Patient will demonstrate use of self-awareness, goal setting, planning, initiation, self-monitoring and problem solving during daily activities to improve safety and awareness in a functional living environment Dates: Start: 09/24/24 Expected End: 10/25/24 Disciplines: ETHNIC ORIGINS TEACHER Goal: STG: Patient will demonstrate functional problem solving and safety awareness with 90% accuracy in daily living tasks in order to increase safe interactions with environment and decrease assistance from caregivers Dates: Start: 09/24/24 Expected End: 10/25/24 Disciplines: ETHNIC ORIGINS TEACHER Problem: Speech Production Dates: Start: 09/24/24 Disciplines: ETHNIC ORIGINS TEACHER Goal: LTG: Patient will develop functional and intelligible speech and utilize compensatory strategies through the use of adequate labial and lingual function, increased articulatory precision and speech prosody Dates: Start: 09/24/24 Expected End: 10/25/24 Disciplines: ETHNIC ORIGINS TEACHER Goal: STG: Patient will use appropriate articulatory accuracy and speech rate when reading/speaking with 90% accuracy with minimal cueing Dates: Start: 09/24/24 Expected End: 10/25/24 Disciplines: ETHNIC ORIGINS TEACHER Goal: STG: Patient will complete rapid alternating verbal sequences (tongue twisters) with improved articulatory precision with 90% accuracy with minimal cueing Dates: Start: 09/24/24 Expected End: 10/25/24 Disciplines: ETHNIC ORIGINS TEACHER Problem: Verbal Expression Dates: Start: 09/24/24 Disciplines: ETHNIC ORIGINS TEACHER Goal: LTG: Patient will utilize compensatory strategies to communicate wants and needs effectively to different conversational partners, maintain safety and participate socially in a functional living environment Dates: Start: 09/24/24 Expected End: 10/25/24 Disciplines: ETHNIC ORIGINS TEACHER Goal: STG: Patient will describe objects, pictures (salient features) with 90% accuracy with minimal cueing to improve word retrieval skills Dates: Start: 09/24/24 Expected End: 10/25/24 Disciplines: ETHNIC ORIGINS TEACHER Goal: STG: Patient will respond to simple/complex open ended questions during activities of daily living with 90% accuracy with minimal cueing Dates: Start: 09/24/24 Expected End: 10/25/24 Disciplines: ETHNIC ORIGINS TEACHER Goal: STG: Patient will complete simple to complex divergent and convergent naming tasks with 90% accuracy with minimal cueing to improve thought organization Dates: Start: 09/24/24 Expected End: 10/25/24 Disciplines: ETHNIC ORIGINS TEACHER Speech Therapy Care Plan (Resolved) There are no resolved problems. Principal Problem: Altered mental status, unspecified altered mental status type Active Problems: Generalized anxiety disorder with panic attacks Hyperlipidemia, acquired Multiple sclerosis (CMS-HCC) LORENZO (obstructive sleep apnea) Primary hypertension Depression, unspecified Dysphagia, oropharyngeal phase No restraints Problem: Safety - Medical Restraint Goal: Remains free of injury from restraints (Restraint for Interference with Pit Laborer) Description: INTERVENTIONS: 1. Determine that other, less [...] Free from restraint(s) (Restraint for Interference with Pit Laborer) Description: INTERVENTIONS: 1. ONCE/SHIFT or MINIMUM Q12H: [...] Description: INTERVENTIONS: 1. Encourage patient or legal electroplating sales representative to report early pain and ask [...] per policy 9. Teach patient or legal electroplating sales representative interventions for comforting Outcome: Progressing Note: [...] at the bedside 7. Instruct patient/ patient electroplating sales representative about use of safety devices 8. Include patient/ patient electroplating sales representative in decisions related to safety Outcome: [...] hygiene technique. 7. Identify and instruct patient/patient electroplating sales representative in use of appropriate isolation precautions for identified infection/symptoms. 8. Provide and discuss with patient/patient electroplating sales representative on educational MDRO sheet. 9. Encourage and monitor nutritional status daily and consult nursing home admissions director if indicated. 10. Implement neutropenic guidelines as needed. Outcome: Progressing Note: Evaluation of progress towards goal: Labs and vitals monitored as ordered. Medications administered as ordered. Patient remains free from infection at this time. Problem: Knowledge Deficit Goal: Patient/patient electroplating sales representative demonstrates understanding of disease process, treatment [...] supplement as ordered 13. Collaborate with clinical nursing home admissions director 14. Include patient/ patient's electroplating sales representative in decisions related to nutrition Outcome: [...] Score of =/> 25 or indicated by [facility] Rehab Assessment Goal: Patient should be free from fall Description: Interventions: 1. [place] to environment 2. Hourly rounds addressing the [...] non-skid footwear 11. Teach patient and patient electroplating sales representative to maintain environment for safety and [...] (cane, walker) within reach 19. Request patient electroplating sales representative bring adaptive equipment/mobility aids from home or obtain and provide as needed 20. Consult pharmacy regarding effects of med's affecting mobility, cognition, and alternatives 21. Obtain physician order for PT if risk factors associated with mobility are present 22. Obtain physician order for OT as appropriate 23. Utilize diversional activities 24. Educate patient and patient electroplating sales representative how to maintain a safe environment during visitation times (notify nurse prior to leaving bedside) 25. Consider appropriateness of medical or non-medical office receptionist 26. Set up voiding schedule as appropriate [...] injury from restraints (Restraint for Interference with Pit Laborer) Description: INTERVENTIONS: 1. Determine that other, less [...] Free from restraint(s) (Restraint for Interference with Pit Laborer) Description: INTERVENTIONS: 1. ONCE/SHIFT or MINIMUM Q12H: [...] then fastened to the bed with Rivera fish header. Her cranial anatomy was registered to the [employer] software with good accuracy. Stealth probe was [...] replaced and fixed to the skull with [place] mini screws and plates. The incision was then irrigated with antibiotic infused saline and closed in the standard layered fashion. Sterile dressing was applied. The patient was awakened, extubated, and transported to the recovery room with stable vital signs. Brief Post-op Note NAME: Anupama Vasquez : 1970 PROCEDURE DATE: 09/23/2024 Surgeon: Surgeons and Role: * Jair Espinal MD - Primary Assistants: None Staff: Corrections Identification Technician Primary: Javier Argueta RN Corrections Identification Technician Relief: Julia Lofton RN; Sherrie Leiva RN [...] Implant Name Type Inv. Item Serial No. Mill Tender Second Operator Lot No. LRB No. Used Action PATCH DURA 3X3IN THK3.5MM CRNMXF DRMTRX-ONLAY + NPOR RGNRT RPL [id number] - [id number] Graft PATCH DURA 3X3IN THK3.5MM CRNMXF DRMTRX-ONLAY + NPOR RGNRT RPL [id number] JIM CRANIOMAXILLOFACIAL [id number] Right 1 Implanted PLATE BN 12MM 2 HL LP BAR TAB UNV NEURO II CRNMXF TI NS 1.5 - [id number] Plate PLATE BN 12MM 2 HL LP BAR TAB UNV NEURO II CRNMXF TI NS 1.5 JIM [employer] Right 2 Implanted COVER BUR HL CRNFCL 10MMX.5MM LP TAB STRL LF DISP - [id number] Plate COVER BUR HL CRNFCL 10MMX.5MM LP TAB STRL LF DISP JIM [employer]OMAX[employer] Right 1 Implanted SCREW BN 4MM 1.5MM SLF DRL XPN CRNMXF STRL MUST ORDER IN MULTIPLES OF 5EA - [id number] Screw SCREW BN 4MM 1.5MM SLF DRL [...] Free from restraint(s) (Restraint for Interference with Pit Laborer) Description: INTERVENTIONS: 1. ONCE/SHIFT or MINIMUM Q12H: [...] Description: INTERVENTIONS: 1. Encourage patient or legal electroplating sales representative to report early pain and ask [...] per policy 9. Teach patient or legal electroplating sales representative interventions for comforting Outcome: Progressing Note: [...] at the bedside 7. Instruct patient/ patient electroplating sales representative about use of safety devices 8. Include patient/ patient electroplating sales representative in decisions related to safety Outcome: [...] hygiene technique. 7. Identify and instruct patient/patient electroplating sales representative in use of appropriate isolation precautions for identified infection/symptoms. 8. Provide and discuss with patient/patient electroplating sales representative on educational MDRO sheet. 9. Encourage and monitor nutritional status daily and consult nursing home admissions director if indicated. 10. Implement neutropenic guidelines as needed. Outcome: Progressing Note: Evaluation of progress towards goal: Handwashing and standard precautions maintained. Patient remains free from infection through shift and has not shown any additional signs of infection at this time. Will continue to educate on infection prevention. Problem: Knowledge Deficit Goal: Patient/patient electroplating sales representative demonstrates understanding of disease process, treatment [...] supplement as ordered 13. Collaborate with clinical nursing home admissions director 14. Include patient/ patient's electroplating sales representative in decisions related to nutrition Outcome: [...] be free from fall Description: Interventions: 1. [place] to environment 2. Hourly rounds addressing the [...] non-skid footwear 11. Teach patient and patient electroplating sales representative to maintain environment for safety and [...] (cane, walker) within reach 19. Request patient electroplating sales representative bring adaptive equipment/mobility aids from home or obtain and provide as needed 20. Consult pharmacy regarding effects of med's affecting mobility, cognition, and alternatives 21. Obtain physician order for PT if risk factors associated with mobility are present 22. Obtain physician order for OT as appropriate 23. Utilize diversional activities 24. Educate patient and patient electroplating sales representative how to maintain a safe environment during visitation times (notify nurse prior to leaving bedside) 25. Consider appropriateness of medical or non-medical office receptionist 26. Set up voiding schedule as appropriate [...] injury from restraints (Restraint for Interference with Pit Laborer) Description: INTERVENTIONS: 1. Determine that other, less [...] 09/23, alexis Discharge Plan remains: return to [facility] SNF. [facility] is ready to accept patient at discharge. Patient will require a precert for SNF placement. CN will continue to follow and is available should any further needs arise. - RAMIREZ COTTO 09/22/24 9:50 AM Problem: Pain Goal: Patient goal is pain score less than 4, able to rest, and participant in treatment plan as appropriate Description: INTERVENTIONS: 1. Encourage patient or legal electroplating sales representative to report early pain and ask [...] per policy 9. Teach patient or legal electroplating sales representative interventions for comforting Outcome: Progressing Note: Evaluation of progress towards goal: First Aid Teacher assessed pt pain in the beginning and throughout shift. Pt stated a tolerable pain goal was zero. First Aid Teacher medicated pt pain per order. Will continue [...] at the bedside 7. Instruct patient/ patient electroplating sales representative about use of safety devices 8. Include patient/ patient electroplating sales representative in decisions related to safety Outcome: [...] hygiene technique. 7. Identify and instruct patient/patient electroplating sales representative in use of appropriate isolation precautions for identified infection/symptoms. 8. Provide and discuss with patient/patient electroplating sales representative on educational MDRO sheet. 9. Encourage and monitor nutritional status daily and consult nursing home admissions director if indicated. 10. Implement neutropenic guidelines as needed. Outcome: Progressing Note: Evaluation of progress towards goal: First Aid Teacher assessed pt risk for infection in the beginning and throughout shift. Pt remains afebrile. Will continue to monitor. Problem: Knowledge Deficit Goal: Patient/patient electroplating sales representative demonstrates understanding of disease process, treatment plan, medications, and discharge instructions Description: INTERVENTIONS 1. Complete learning assessment and assess knowledge base 2. Provide teaching at level of understanding 3. Provide teaching via preferred learning method(s) Outcome: Progressing Note: Evaluation of progress towards goal: First Aid Teacher educated pt on admission disease, medications, treatment, [...] towards goal: Patient's skin integrity is maintained, field underwriter assessed at beginning of shift and throughout, [...] supplement as ordered 13. Collaborate with clinical nursing home admissions director 14. Include patient/ patient's electroplating sales representative in decisions related to nutrition Outcome: [...] goal: Patient's perineal skin integrity is maintained, field underwriter assessed at beginning of shift and throughout, no changes noted, alexis cathter in place, fallon care provided. Problem: Moderate - High Risk Fall Score Description: García Fall Score of =/> 25 or indicated by [facility] Rehab Assessment Goal: Patient should be free from fall Description: Interventions: 1. [place] to environment 2. Hourly rounds addressing the [...] non-skid footwear 11. Teach patient and patient electroplating sales representative to maintain environment for safety and [...] (cane, walker) within reach 19. Request patient electroplating sales representative bring adaptive equipment/mobility aids from home or obtain and provide as needed 20. Consult pharmacy regarding effects of med's affecting mobility, cognition, and alternatives 21. Obtain physician order for PT if risk factors associated with mobility are present 22. Obtain physician order for OT as appropriate 23. Utilize diversional activities 24. Educate patient and patient electroplating sales representative how to maintain a safe environment during visitation times (notify nurse prior to leaving bedside) 25. Consider appropriateness of medical or non-medical office receptionist 26. Set up voiding schedule as appropriate (every 2 hours) Outcome: Progressing Note: Evaluation of progress towards goal: First Aid Teacher assessed pt fall precautions in the beginning [...] injury from restraints (Restraint for Interference with Pit Laborer) Description: INTERVENTIONS: 1. Determine that other, less [...] injury from restrains, restrains remain in place, field underwriter checks pulses, range of motion, offers hygiene, nutrition and repositioning every two hours. Goal: Free from restraint(s) (Restraint for Interference with Pit Laborer) Description: INTERVENTIONS: 1. ONCE/SHIFT or MINIMUM Q12H: [...] time, order remains vaild for current shift, field underwriter performs necessary checks, plan of care ongoing. Problem: Pain Goal: Patient goal is pain score less than 4, able to rest, and participant in treatment plan as appropriate Description: INTERVENTIONS: 1. Encourage patient or legal electroplating sales representative to report early pain and ask [...] per policy 9. Teach patient or legal electroplating sales representative interventions for comforting Outcome: Progressing Note: [...] at the bedside 7. Instruct patient/ patient electroplating sales representative about use of safety devices 8. Include patient/ patient electroplating sales representative in decisions related to safety Outcome: [...] hygiene technique. 7. Identify and instruct patient/patient electroplating sales representative in use of appropriate isolation precautions for identified infection/symptoms. 8. Provide and discuss with patient/patient electroplating sales representative on educational MDRO sheet. 9. Encourage and monitor nutritional status daily and consult nursing home admissions director if indicated. 10. Implement neutropenic guidelines as needed. Outcome: Progressing Note: Evaluation of progress towards goal: Handwashing and standard precautions maintained. Patient remains free from infection through shift and has not shown any additional signs of infection at this time. Will continue to educate on infection prevention. Problem: Knowledge Deficit Goal: Patient/patient electroplating sales representative demonstrates understanding of disease process, treatment [...] supplement as ordered 13. Collaborate with clinical nursing home admissions director 14. Include patient/ patient's electroplating sales representative in decisions related to nutrition Outcome: [...] be free from fall Description: Interventions: 1. [place] to environment 2. Hourly rounds addressing the [...] non-skid footwear 11. Teach patient and patient electroplating sales representative to maintain environment for safety and [...] (cane, walker) within reach 19. Request patient electroplating sales representative bring adaptive equipment/mobility aids from home or obtain and provide as needed 20. Consult pharmacy regarding effects of med's affecting mobility, cognition, and alternatives 21. Obtain physician order for PT if risk factors associated with mobility are present 22. Obtain physician order for OT as appropriate 23. Utilize diversional activities 24. Educate patient and patient electroplating sales representative how to maintain a safe environment during visitation times (notify nurse prior to leaving bedside) 25. Consider appropriateness of medical or non-medical office receptionist 26. Set up voiding schedule as appropriate [...] injury from restraints (Restraint for Interference with Pit Laborer) Description: INTERVENTIONS: 1. Determine that other, less [...] needs. DISCHARGE PLANNING NOTE Referral sent to. [facility] (P#: ; F#: ) Images from the original note were not included. DISCHARGE PLANNING NOTE First Aid Teacher left messages for children, introduced self, and [...] Medical History: Diagnosis Date MS (multiple sclerosis) ([facility]) 2012 Prior to admission patient was a skilled patient at [facility] and family is interested in patient returning at discharge. Social work task RC to send referral to [facility]. Patient will require precert for placement. PCP: JACQUELINE LUNA Pharmacy:[facility] [place] PCP and pharmacy confirmed with patient. JACQUELINE [...] Description: INTERVENTIONS: 1. Encourage patient or legal electroplating sales representative to report early pain and ask [...] per policy 9. Teach patient or legal electroplating sales representative interventions for comforting Outcome: Progressing Note: [...] hygiene technique. 7. Identify and instruct patient/patient electroplating sales representative in use of appropriate isolation precautions for identified infection/symptoms. 8. Provide and discuss with patient/patient electroplating sales representative on educational MDRO sheet. 9. Encourage and monitor nutritional status daily and consult nursing home admissions director if indicated. 10. Implement neutropenic guidelines as [...] injury from restraints (Restraint for Interference with Pit Laborer) Description: INTERVENTIONS: 1. Determine that other, less [...] to monitor. Problem: Knowledge Deficit Goal: Patient/patient electroplating sales representative demonstrates understanding of disease process, treatment [...] Free from restraint(s) (Restraint for Interference with Pit Laborer) Description: INTERVENTIONS: 1. ONCE/SHIFT or MINIMUM Q12H: [...] Description: INTERVENTIONS: 1. Encourage patient or legal electroplating sales representative to report early pain and ask [...] per policy 9. Teach patient or legal electroplating sales representative interventions for comforting Outcome: Progressing Note: [...] at the bedside 7. Instruct patient/ patient electroplating sales representative about use of safety devices 8. Include patient/ patient electroplating sales representative in decisions related to safety Outcome: [...] hygiene technique. 7. Identify and instruct patient/patient electroplating sales representative in use of appropriate isolation precautions for identified infection/symptoms. 8. Provide and discuss with patient/patient electroplating sales representative on educational MDRO sheet. 9. Encourage and monitor nutritional status daily and consult nursing home admissions director if indicated. 10. Implement neutropenic guidelines as [...] injury from restraints (Restraint for Interference with Pit Laborer) Description: INTERVENTIONS: 1. Determine that other, less [...] has been communicated to KIRK Venegas with [facility] Hospitalist. Critical Care will sign off upon transfer or starting tomorrow 0700, whichever comes first. Call the critical care DIANE if there are any further questions. Thank you. JACQUELINE Hughes APRN-CNP 09/20/24 1040 Problem: Pain Goal: Patient goal is pain score less than 4, able to rest, and participant in treatment plan as appropriate Description: INTERVENTIONS: 1. Encourage patient or legal electroplating sales representative to report early pain and ask [...] per policy 9. Teach patient or legal electroplating sales representative interventions for comforting Outcome: Progressing Note: [...] hygiene technique. 7. Identify and instruct patient/patient electroplating sales representative in use of appropriate isolation precautions for identified infection/symptoms. 8. Provide and discuss with patient/patient electroplating sales representative on educational MDRO sheet. 9. Encourage and monitor nutritional status daily and consult nursing home admissions director if indicated. 10. Implement neutropenic guidelines as needed. Outcome: Progressing Note: Evaluation of progress towards goal: Pt afebrile, vss, will continue to monitor. Problem: Knowledge Deficit Goal: Patient/patient electroplating sales representative demonstrates understanding of disease process, treatment [...] injury from restraints (Restraint for Interference with Pit Laborer) Description: INTERVENTIONS: 1. Determine that other, less [...] keep monitoring Problem: Knowledge Deficit Goal: Patient/patient electroplating sales representative demonstrates understanding of disease process, treatment [...] injury from restraints (Restraint for Interference with Pit Laborer) Description: INTERVENTIONS: 1. Determine that other, less [...] Free from restraint(s) (Restraint for Interference with Pit Laborer) Description: INTERVENTIONS: 1. ONCE/SHIFT or MINIMUM Q12H: [...] Description: INTERVENTIONS: 1. Encourage patient or legal electroplating sales representative to report early pain and ask [...] per policy 9. Teach patient or legal electroplating sales representative interventions for comforting Outcome: Progressing Note: [...] at the bedside 7. Instruct patient/ patient electroplating sales representative about use of safety devices 8. Include patient/ patient electroplating sales representative in decisions related to safety Outcome: [...] hygiene technique. 7. Identify and instruct patient/patient electroplating sales representative in use of appropriate isolation precautions for identified infection/symptoms. 8. Provide and discuss with patient/patient electroplating sales representative on educational MDRO sheet. 9. Encourage and monitor nutritional status daily and consult nursing home admissions director if indicated. 10. Implement neutropenic guidelines as [...] try again later. Enid Eaton Jr., M.D. [facility] [phone] Problem: Pain Goal: Patient goal is pain score less than 4, able to rest, and participant in treatment plan as appropriate Description: INTERVENTIONS: 1. Encourage patient or legal electroplating sales representative to report early pain and ask [...] per policy 9. Teach patient or legal electroplating sales representative interventions for comforting 09/19/2024 0741 by [...] at the bedside 7. Instruct patient/ patient electroplating sales representative about use of safety devices 8. Include patient/ patient electroplating sales representative in decisions related to safety 09/19/2024740 [...] hygiene technique. 7. Identify and instruct patient/patient electroplating sales representative in use of appropriate isolation precautions for identified infection/symptoms. 8. Provide and discuss with patient/patient electroplating sales representative on educational MDRO sheet. 9. Encourage and monitor nutritional status daily and consult nursing home admissions director if indicated. 10. Implement neutropenic guidelines as needed. 09/19/2024740 by MOE Dailey Outcome: Progressing Note: Evaluation of progress towards goal: No active infections 09/19/2024738 by MOE Dailey Outcome: Progressing Note: Evaluation of progress towards goal: No active infections Problem: Knowledge Deficit Goal: Patient/patient electroplating sales representative demonstrates understanding of disease process, treatment [...] supplement as ordered 13. Collaborate with clinical nursing home admissions director 14. Include patient/ patient's electroplating sales representative in decisions related to nutrition 09/19/2024740 [...] be free from fall Description: Interventions: 1. [place] to environment 2. Hourly rounds addressing the [...] non-skid footwear 11. Teach patient and patient electroplating sales representative to maintain environment for safety and [...] (cane, walker) within reach 19. Request patient electroplating sales representative bring adaptive equipment/mobility aids from home or obtain and provide as needed 20. Consult pharmacy regarding effects of med's affecting mobility, cognition, and alternatives 21. Obtain physician order for PT if risk factors associated with mobility are present 22. Obtain physician order for OT as appropriate 23. Utilize diversional activities 24. Educate patient and patient electroplating sales representative how to maintain a safe environment during visitation times (notify nurse prior to leaving bedside) 25. Consider appropriateness of medical or non-medical office receptionist 26. Set up voiding schedule as appropriate [...] status unchanged Problem: Knowledge Deficit Goal: Patient/patient electroplating sales representative demonstrates understanding of disease process, treatment [...] Description: INTERVENTIONS: 1. Encourage patient or legal electroplating sales representative to report early pain and ask [...] per policy 9. Teach patient or legal electroplating sales representative interventions for comforting Outcome: Progressing Note: [...] at the bedside 7. Instruct patient/ patient electroplating sales representative about use of safety devices 8. Include patient/ patient electroplating sales representative in decisions related to safety Outcome: [...] hygiene technique. 7. Identify and instruct patient/patient electroplating sales representative in use of appropriate isolation precautions for identified infection/symptoms. 8. Provide and discuss with patient/patient electroplating sales representative on educational MDRO sheet. 9. Encourage and monitor nutritional status daily and consult nursing home admissions director if indicated. 10. Implement neutropenic guidelines as needed. Outcome: Progressing Note: Evaluation of progress towards goal: pt will show no signs or symptoms of infection prior to discharge. Any unneccessary invasive lines and tubes will be removed if not medically necessary to decrease infection risk. documented in this encounter [facility] 09-28-2024 Hospital course Narrative Images from the original note were not included. [facility] - GEN 9 ACUTE [address] [facility] [address] Hospital Medicine Discharge Summary Patient: Anupama Vasquez Date of : 1970 Room: A938/01 Encounter date: 09/28/24 Hospital Day: 11 DATE OF ADMISSION: 09/18/2024 DATE OF DISCHARGE:09/28/2024 DISCHARGE DIAGNOSES Principal Problem: Altered mental status, unspecified altered mental status type Active Problems: Generalized anxiety disorder with panic attacks Hyperlipidemia, acquired Multiple sclerosis ([facility]) LORENZO (obstructive sleep apnea) Primary hypertension Depression, unspecified Dysphagia, oropharyngeal phase [facility] Card[facility] Urology Neurosurgery Nephrology PCP: FRED GRACIA APRN-FINANCIAL INSTITUTION MANAGER PROCEDURES Craniotomy HOSPITAL COURSE SUMMARY Patient's past medical history significant for MS, initially presented to [facility] from her rehab facility with complaints of altered mental status. Recently treated for rhabdomyolysis. She was CT head completed at the outlying facility that showed a 4.1 cm temporal right brain mass with mnxtp-ba-nwtb 60 mm shift with surrounding edema. She was transferred to [facility] under Neurosurgery to the ICU. Right temporal [...] EKG completed Echocardiogram showing preserved LVEF with hons-ji-jxtihdcm mitral stenosis Buttock wound Previously following with [...] Brain CT from September 18 outside facility [place] PROCEDURE: Multiplanar multisequence images performed through the [...] for surgical planning. 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 [...] Najera MD on 09/19/2024 6:30 AM I, Moa Varner MD have personally reviewed the image(s) and agree with and/or edited the report Finalized by Mao Varner MD on 09/19/2024 6:46 AM DISCHARGE INSTRUCTION [facility]position: jail facility Condition: Stable Activity: activity as tolerated [...] page through On-Call Finder. JACQUELINE Ayala 09/28/24 2385 Attending Addendum: I Dr Julio Fernandez, personally [...] plan as noted. documented in this encounter [facility] 09-27-2024 History of Present illness Narrative Images from the original note were not included. [facility] INTERNAL MEDICINE [facility] GEN 9 ACUTE [address] [facility] [address] Hospital Medicine Progress Note Patient: Anupama Vasquez Date of : 1970 Room: [place] [address] PCP: JACQUELINE LUNA Admission date: 09/18/2024 11:59 [...] EKG completed Echocardiogram showing preserved LVEF with ages-iv-lwyixsyp mitral stenosis Maintain cardiac monitoring Buttock wound [...] Neurosurgery Skye Lara MD 09/27/2024 4:31 PM [facility] Internal Medicine 7AM-7PM & 7PM-7AM: EpicChat [...] Thank you, Arabella Burt RN Rapid Response: [facility] Images from the original note [...] Thank you, Russel Valverde RN Rapid Response: [facility] Images from the original note were not included. [facility] INTERNAL MEDICINE [facility] - GEN 9 ACUTE [address] [facility] [address] Hospital Medicine Progress Note Patient: Anupama Vasquez Date of : 1970 Room: [place] [address] PCP: FRED GRACIA APRN-FINANCIAL INSTITUTION MANAGER Admission date: 09/18/2024 11:59 PM Encounter date: [...] with panic attacks Hyperlipidemia, acquired Multiple sclerosis ([facility]) LORENZO (obstructive sleep apnea) Primary hypertension [...] EKG completed Echocardiogram showing preserved LVEF with guit-mr-himfyids mitral stenosis Maintain cardiac monitoring Buttock wound [...] Neurosurgery Skye Lara MD 09/26/2024 5:01 PM [facility] Internal Medicine 7AM-7PM & 7PM-7AM: EpicChat or page through On-Call Finder. Images from the original note were not included. [facility] [address] [place] [address], [address] [place] [address] * NEUROSURGERY DAILY PROGRESS NOTE DATE:09/26/2024 PATIENT'S [...] with questions or concerns. JACQUELINE Chun Neurosurgery [facility] Patient Touch 09/26/24 2:31 PM To find out which DIANE is on for the day please go to ON-Call Finder in [employer] or [employer] and use log in [employer] and search for [facility] Neurosurgery JACQUELINE Roth 09/26/24 0119 Images from the original note were not [...] Thank you, Arabella Burt RN Rapid Response: [facility] NUTRITION ADULT FOLLOW UP NUTRITION ASSESSMENT: Patient History: Brief Clinical Summary: Labs:past medical history significant for MS, who initially presented to [facility] from her rehab facility with complaints of [...] 22 08/29/2024 Lab Results Component Value Date [id number] 517 09/19/2024 Lab Results Component Value Date [...] injection 4 mg 4 mg intravenous Q6H [facility] PEGGY VazquezFINANCIAL INSTITUTION MANAGER 4 mg at 09/25/24 0535 dextrose (GLUTOSE) [...] premix) 4,000 mg intravenous PRN Steffanie Lozano APRN-FINANCIAL INSTITUTION MANAGER metoprolol tartrate (LOPRESSOR) tablet 25 mg 25 [...] 20-60 mEq oral PRN Steffanie E Walker, ON SITE COORDINATOR-FINANCIAL INSTITUTION MANAGER Or potassium chloride (KAYCIEL) 20 mEq/15 mL solution 20-60 mEq 20-60 mEq oral PRN Steffanie E Walker, ON SITE COORDINATOR-FINANCIAL INSTITUTION MANAGER Or potassium chloride IVPB 10 mEq/100 mL in water (0.1 mEq/mL premix) 10 mEq intravenous PRN Steffanie E Blake, ON SITE COORDINATOR-FINANCIAL INSTITUTION MANAGER sennosides-docusate sodium (SENOKOT-S) 8.6-50 mg 2 tablet 2 tablet oral Nightly Jair Espinal MD 2 tablet at 09/24/24 2204 sodium phosphate 20 mmol in sodium chloride 0.9 % 250 mL IVPB 20 mmol intravenous PRN Steffanie E Blake, ON SITE COORDINATOR-FINANCIAL INSTITUTION MANAGER Or sodium phosphate 20 mmol in sodium chloride 0.9 % 100 mL IVPB 20 mmol intravenous PRN Steffanie E Blake, ON SITE COORDINATOR-FINANCIAL INSTITUTION MANAGER Or sod phos di, mono-K phos mono (K-PHOS NEUTRAL) 250 mg tablet 2 tablet 2 tablet oral PRN Steffanie E Blake, ON SITE COORDINATOR-FINANCIAL INSTITUTION MANAGER sodium chloride 0.9 % infusion 3 mL/hr intra-arterial Continuous Jair Espinal MD 3 mL/hr at 09/25/24 0705 3 mL/hr at 09/25/24 0705 Nutrition Focused Physical Findings one stool today 1770ml UO yesterday Skin (per nursing flow sheets): Skin Color: [place] (09/25/24 08) Skin Temp: Warm; Dry (09/25/24 [...] oz) Admit Weight: 119.4kg (Bed Scale, 09/19/24) [place] Body Weight: 61.4kg Weight Changes: 8.5kg loss/3 months (7%), stable inpatient +/- 2kg Current Body Mass Index: Body mass index is 41.7 kg/m . Comparative Standards: Estimated Energy Needs: 5269-4594 kcals daily. Method and weight used: 28-32 kcal/kg IBW Estimated Protein Needs: 74-123 grams daily. Method and weight used: 1.2-2g protein/kg IBW Estimated Fluid Needs: 3449-4374 ml daily. Method weight used: 28-32 ml/kg [...] Saez R.D, L.D. Clinical dietitian Patient Touch extension:[phone] Direct Dial phone number: [phone] 09/25/24 12:04 PM Images from the original note were not included. [facility] INTERNAL MEDICINE [place] [address] [address] [facility] [address] Hospital Medicine Progress Note Patient: Anupama Vasquez Date of : 1970 Room: [place] [address] PCP: FRED GRACIA APRN-FINANCIAL INSTITUTION MANAGER Admission date: 09/18/2024 11:59 PM Encounter date: [...] EKG completed Echocardiogram showing preserved LVEF with laxm-is-wcjzsdqv mitral stenosis Maintain cardiac monitoring Buttock wound [...] Hamilton 09/25/2024 11:06 AM [facility] Internal Medicine 7AM-7PM & 7PM-7AM: EpicChat or page through On-Call Finder. JACQUELINE Hamilton 09/25/24 1743 JACQUELINE Hamilton 09/25/24 1744 ISkye MD, personally performed the face to face diagnostic evaluation on this patient. I have reviewed the DIANE's History, Exam, and MDM and agree with the assessment and plan as written. Images from the original note were not included. [facility] [address] [place] [address], [address] [place] [address] * NEUROSURGERY DAILY PROGRESS NOTE DATE:09/25/2024 PATIENT'S [...] Right temporal glioma s/p resection PLAN - ETHNIC ORIGINS TEACHER evaluated yesterday. VSS today. - Continue serial [...] Edward- [facility] Please contact via [employer] first then can utilize Patient touch/VoceraEdge if needed 09/25/24 7:08 AM To find out which DIANE is on for the day please go to [employer] and use log in [employer] and search for [facility] Neurosurgery (DIANE and Phone Number is listed) JACQUELINE Vazquez 09/25/24 1300 Urology Progress Note 6 Chief complaint: Urinary [...] This note was completed using a voice cost accounting clerk system. Every effort was made to ensure accuracy. However, inadvertent computerized cost accounting clerk errors may be present. Images from the original note were not included. [facility] [place] [address] [address] [facility] [address] Hospital Medicine Progress Note Patient: Anupama Vasquez Date of : 1970 Room: [place] [address] PCP: FRED GRACIA APRN-RUBINA Admission date: 09/18/2024 [...] EKG completed Echocardiogram showing preserved LVEF with vzky-tw-nitikcqo mitral stenosis Maintain cardiac monitoring Buttock wound [...] page through On-Call Finder. JACQUELINE Hamilton 09/24/24 7618 ISkye MD, personally performed the face to [...] long run from follow up at the [place] [facility] office. . Thank you very much. I appreciate being asked to help with this patient's care. Enid Eaton Jr., M.D. [facility] [phone] Images from the original note were not included. [facility] [address] [place] [address], [address] [place] [address] * NEUROSURGERY DAILY PROGRESS NOTE DATE:09/24/2024 PATIENT'S [...] Edward- [facility] Please contact via [employer] first then can utilize Patient touch/Helpadge if needed 09/24/24 6:54 AM To find out which DIANE is on for the day please go to [employer] and use log in [employer] and search for [facility] Neurosurgery (DIANE and Phone Number is listed) JACQUELINE Vazquez 09/24/241946 NUTRITION ADULT FOLLOW UP NUTRITION ASSESSMENT: Patient History: Brief Clinical Summary: past medical history significant for MS, who initially presented to [facility] from her rehab facility with complaints of [...] 22 08/29/2024 Lab Results Component Value Date [id number] 517 09/19/2024 Lab Results Component Value Date [...] mL IVPB 4,000 mg intravenous PRN Steffanie Loazno APRN-RUBINA calcium gluconate IVPB 2000 mg/100 mL (20 mg/mL premix) 2,000 mg intravenous PRN Steffanie Lozano APRN-RUBINA dexAMETHasone (DECADRON) injection 4 mg 4 mg intravenous Q6H FELTON Zarate APRN-FINANCIAL INSTITUTION MANAGER 4 mg at 09/23/24 0621 dextrose (GLUTOSE) [...] mg 15 mg nasogastric Nightly Anjelica Venegas APRN-FINANCIAL INSTITUTION MANAGER 15 mg at 09/22/24 2124 polyethylene glycol [...] tablet 2 tablet oral PRN Steffanie Lozano, ON SITE COORDINATOR-FINANCIAL INSTITUTION MANAGER Nutrition Focused Physical Findings +NG, mentation improving, BM 09/22 Skin (per nursing flow sheets): Skin Color: [place] (09/22/241939) Skin Temp: Dry; Cool (09/22/241939) Wound [...] oz) Admit Weight: 119.4kg (Bed Scale, 09/19/24) [place] Body Weight: 61.4kg Weight Changes: 8.5kg loss/3 months (7%), stable inpatient +/- 2kg Current Body Mass Index: Body mass index is 41.7 kg/m . Comparative Standards: Estimated Energy Needs: 0070-6463 kcals daily. Method and weight used: 28-32 kcal/kg IBW Estimated Protein Needs: 74-123 grams daily. Method and weight used: 1.2-2g protein/kg IBW Estimated Fluid Needs: 7898-0850 ml daily. Method weight used: 28-32 ml/kg [...] retention Right temporal 4.1cm brain mass with jolsg-cz-iarq 60 mm shift with surrounding edema from September of 2024 Multiple sclerosis Left carpal tunnel release Left shoulder arthroscopy KEYANNA PERRIN MD NEPHROLOGY [facility] ANY QUESTIONS FEEL FREE TO CALL: 1. OFFICE [phone] 2. ANSWERING SERVICE:[phone] YOU CAN CONTACT ME THROUGH [employer] SECURE CHAT DURING THE DAYTIME HOURS, IF [...] completed yesterday with preserved LVEF. Did have ufcr-kd-vsfqhfka mitral stenosis with a mean gradient of [...] This note was completed using a voice cost accounting clerk system. Every effort was made to ensure accuracy. However, inadvertent computerized cost accounting clerk errors may be present. Images from the original note were not included. [facility] INTERNAL MEDICINE [facility] - GEN 9 ACUTE [address] [facility] [address] Hospital Medicine Progress Note Patient: Anupama Vasquez Date of : 1970 Room: [place] [address] PCP: FRED GRACIA APRN-FINANCIAL INSTITUTION MANAGER Admission date: 09/18/2024 11:59 PM Encounter date: [...] infusion, 50-150 mL/hr, Last Rate: Stopped (09/22/24 0739) As Needed: acetaminophen OR acetaminophen bisacodyL calcium [...] EKG completed Echocardiogram showing preserved LVEF with ukje-zd-bohqeluj mitral stenosis Maintain cardiac monitoring Buttock wound [...] under neurosurgery. JACQUELINE Hamilton 09/23/2024 10:00 AM [facility] Internal Medicine 7AM-7PM & 7PM-7AM: EpicChat or page through On-Call Finder. JACQUELINE Hamilton 09/23/24 8197 I, Skye Lara MD, personally performed the face to face diagnostic evaluation on this patient. I have reviewed the DIANE's History, Exam, and MDM and agree with the assessment and plan as written. [facility] Department of Pharmacy Pharmacy-Physician Communication Anupama Vasquez [...] Thank you, Kenya Pastrana RN Rapid Response: [facility] Images from the original note [...] retention Right temporal 4.1cm brain mass with fcdiz-xj-rzsu 60 mm shift with surrounding edema from September of 2024 Multiple sclerosis Left carpal tunnel release Left shoulder arthroscopy KEYANNA PERRIN MD NEPHROLOGY [facility] ANY QUESTIONS FEEL FREE TO CALL: 1. OFFICE [phone] 2. ANSWERING SERVICE:[phone] YOU CAN CONTACT ME THROUGH [employer] SECURE CHAT DURING THE DAYTIME HOURS, IF [...] from the original note were not included. [facility] INTERNAL MEDICINE [facility] - GEN 9 ACUTE [address] [facility] [address] Hospital Medicine Progress Note Patient: Anupama Vasquez [...] ICU postoperatively. JACQUELINE Hamilton 09/22/2024 10:40 AM [facility] Internal Medicine 7AM-7PM & 7PM-7AM: EpicChat [...] Thank you, He Gutierrez RN Rapid Response: [facility] Urology Progress Note 3 Chief [...] this patient's care. Enid Eaton Jr., M.D. [facility] [phone] Images from the original note were not [...] Component Value Units Date/Time Blood culture #2 [[id number]] Collected: 09/20/24732 Specimen: Blood, Venous Updated: 09/22/24721 CULTURE RESULTS NO GROWTH 2 DAYS Narrative: Suboptimal volume of blood collected, Results may be affected. Blood culture #1 [[id number]] Collected: 09/20/24728 Specimen: Blood, Venous Updated: 09/22/24721 CULTURE RESULTS NO GROWTH 2 DAYS Narrative: Suboptimal volume of blood collected, Results may be affected. Blood culture [[id number]] (Abnormal) Collected: 09/19/24122 Specimen: Blood, Venous Updated: 09/21/24 194 CULTURE RESULTS Staphylococcus, coagulase negative Staphylococcus, coagulase negative GRAM STAIN Gram positive cocci in clusters Narrative: Suboptimal volume of blood collected, Results may be affected. BLOOD CULTURE IDENTIFICATION PANEL [[id number]] (Abnormal) Collected: 09/19/24122 Specimen: Blood, Venous Updated: 09/19/24 203 Staphylococcus epidermidis PCR Detected mecA/C gene PCR Detected (Methicillin Resistance) Blood culture [[id number]] Collected: 09/19/24 0026 Specimen: Blood, Venous Updated: [...] from the original note were not included. [facility] [address] [place] [address] * NEUROSURGERY DAILY PROGRESS NOTE DATE:09/21/2024 PATIENT'S [...] day please go to ON-Call Finder in [employer] or [employer] and use log in [employer] and search for PTH Neurosurgery JACQUELINE Roth 09/21/24 1603 Images from the original note were not [...] Component Value Units Date/Time Blood culture #2 [[id number]] Collected: 09/20/24 0733 Specimen: Blood, Venous Updated: 09/21/24 1151 CULTURE RESULTS NO GROWTH 1 DAY Narrative: Suboptimal volume of blood collected, Results may be affected. Blood culture #1 [[id number]] Collected: 09/20/24 0729 Specimen: Blood, Venous Updated: 09/20/24 0729 Blood culture [[id number]] (Abnormal) Collected: 09/19/24 0123 Specimen: Blood, Venous Updated: 09/20/24 1833 CULTURE RESULTS Culture in progress GRAM STAIN Gram positive cocci in clusters Narrative: Suboptimal volume of blood collected, Results may be affected. BLOOD CULTURE IDENTIFICATION PANEL [[id number]] (Abnormal) Collected: 09/19/24 0123 Specimen: Blood, Venous Updated: 09/19/24 2031 Staphylococcus epidermidis PCR Detected mecA/C gene PCR Detected (Methicillin Resistance) Blood culture [[id number]] Collected: 09/19/24 0026 Specimen: Blood, Venous Updated: [...] retention Right temporal 4.1cm brain mass with wriww-ah-qhqj 60 mm shift with surrounding edema from [...] For questions please call: Answering Service at [phone] Or Office at [phone] This note was created with the assistance [...] this patient's care. Enid Eaton Jr., M.D. [facility] [phone] Images from the original note were not [...] Component Value Units Date/Time Blood culture #2 [[id number]] Collected: 09/20/24732 Specimen: Blood, Venous Updated: 09/20/24732 Blood culture #1 [[id number]] Collected: 09/20/24728 Specimen: Blood, Venous Updated: 09/20/24728 Blood culture [[id number]] (Abnormal) Collected: 09/19/24122 Specimen: Blood, Venous Updated: 09/20/24 183 CULTURE RESULTS Culture in progress GRAM STAIN Gram positive cocci in clusters Narrative: Suboptimal volume of blood collected, Results may be affected. BLOOD CULTURE IDENTIFICATION PANEL [[id number]] (Abnormal) Collected: 09/19/24 012 Specimen: Blood, Venous Updated: 09/19/242030 Staphylococcus epidermidis PCR Detected mecA/C gene PCR Detected (Methicillin Resistance) Blood culture [[id number]] Collected: 09/19/24 0026 Specimen: Blood, Venous Updated: [...] Edward- [facility] Please contact via 99 Fahrenheit first then can utilize Patient touch/[employer] if needed 09/20/24 2:22 PM To find out which DIANE is on for the day please go to [employer] and use log in [employer] and search for PTH Neurosurgery (DIANE and Phone Number is listed) JACQUELINE Vazquez 09/20/24 1423 Images from the original note were not [...] Component Value Units Date/Time Blood culture #2 [[id number]] Collected: 09/20/24732 Specimen: Blood, Venous Updated: 09/20/24732 Blood culture #1 [[id number]] Collected: 09/20/24728 Specimen: Blood, Venous Updated: 09/20/24728 Blood culture [[id number]] (Abnormal) Collected: 09/19/24122 Specimen: Blood, Venous Updated: 09/19/242034 CULTURE RESULTS NO GROWTH <24 HRS GRAM STAIN Gram positive cocci in clusters Narrative: Suboptimal volume of blood collected, Results may be affected. BLOOD CULTURE IDENTIFICATION PANEL [[id number]] (Abnormal) Collected: 09/19/24122 Specimen: Blood, Venous Updated: 09/19/242030 Staphylococcus epidermidis PCR Detected mecA/C gene PCR Detected (Methicillin Resistance) Blood culture [[id number]] Collected: 09/19/24 0026 Specimen: Blood, Venous Updated: [...] Brain CT from September 18 outside facility [place] PROCEDURE: Multiplanar multisequence images performed through the [...] for surgical planning. 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 [...] follow with you. Enid Eaton Jr., M.D. [facility] [phone] Images from the original note were not [...] retention Right temporal 4.1cm brain mass with kgxdi-pl-hoit 60 mm shift with surrounding edema from [...] For questions please call: Answering Service at [phone] Or Office at [phone] This note was created with the assistance [...] care discussed with Dr.case Steffanie Lozano APRN [facility] Acute Care Nurse Practitioner [facility] [...] Procedure Component Value Units Date/Time Blood culture [[id number]] (Abnormal) Collected: 09/19/24122 Specimen: Blood, Venous Updated: 09/19/242034 CULTURE RESULTS NO GROWTH <24 HRS GRAM STAIN Gram positive cocci in clusters Narrative: Suboptimal volume of blood collected, Results may be affected. BLOOD CULTURE IDENTIFICATION PANEL [[id number]] (Abnormal) Collected: 09/19/24122 Specimen: Blood, Venous Updated: 09/19/242030 Staphylococcus epidermidis PCR Detected mecA/C gene PCR Detected (Methicillin Resistance) Blood culture [[id number]] Collected: 09/19/24 002 Specimen: Blood, Venous Updated: [...] Procedure Component Value Units Date/Time Blood culture [[id number]] (Abnormal) Collected: 09/19/24122 Specimen: Blood, Venous Updated: 09/19/242034 CULTURE RESULTS NO GROWTH <24 HRS GRAM STAIN Gram positive cocci in clusters Narrative: Suboptimal volume of blood collected, Results may be affected. BLOOD CULTURE IDENTIFICATION PANEL [[id number]] (Abnormal) Collected: 09/19/24122 Specimen: Blood, Venous Updated: 09/19/242030 Staphylococcus epidermidis PCR Detected mecA/C gene PCR Detected (Methicillin Resistance) Blood culture [[id number]] Collected: 09/19/24 0026 Specimen: Blood, Venous Updated: [...] iv bid has been changed per the [facility]-approved renal dosing policy. Current CrCl = 6 mL/min. Accordingly, the dose of famotine 20mg iv bid was changed to famotidine 20mg iv q48hr. If there are any issues or concerns, please contact central pharmacy [place] [phone]. Thank you, Ayush Mina Jr. [facility]. documented [facility] encounter [facility] Hospital Discharge instructions Laura Gore, ON SITE COORDINATOR-FINANCIAL INSTITUTION MANAGER - 09/26/2024 2:57 PM EDT Neurosurgery Discharge [...] ointments to your incision Other Instructions: Call [facility] Neurosurgery with any questions, . documented in this encounter [facility] 09-23-2024 History and physical note HISTORY AND PHYSICAL INTERVAL NOTE: Anupama Vasquez 1970 [id number] H&P reviewed. The patient was examined and there are no changes to the H&P. Jair Espinal MD Source Note - JACQUELINE Roth - 09/21/2024 3:31 PM EDT Images from the original note were not included. [facility] [address] [place] [address], [address] [place] [address] * NEUROSURGERY DAILY PROGRESS NOTE DATE:09/21/2024 PATIENT'S [...] day please go to ON-Call Finder in [employer] or [employer] and use log in [employer] and search for PTH Neurosurgery JACQUELINE Roth 09/21/24 4750 JACQUELINE Roth 09/23/24 1311 CRITICAL CARE HISTORY & PHYSICAL Name: Anupama Vasquez Date: 09/19/2024 Length of Stay: 0 day(s) Chief Complaint Patient presents with Altered Mental Status Evaluation of Abnormal Diagnostic Test HISTORY OF PRESENT ILLNESS: Anupama Vasquez is a 54 y.o. year-old female with a past medical history significant for MS, who initially presented to [facility] from her rehab facility with complaints of altered mental status. Per chart review patient was recently treated for rhabdomyolysis. Her initial workup was significant for hyperkalemia with a potassium of 5.5, BRANDON with creatinine of 15.68, BUN 133, bicarb 20 and leukocytosis with WBC 12.7, also as CT head was obtained and demonstrated a 4.1 cm right temporal brain mass with lnnos-hz-bfyo 60 mm shift which includes surrounding edema [...] Medical History: Diagnosis Date MS (multiple sclerosis) ([facility]) 2012 Past Surgical History: Procedure Laterality [...] Resource Strain: High Risk (06/04/2023) Received from [facility] Overall Financial Resource Strain (CARDIA) Difficulty of Paying Living Expenses: Very hard Food Insecurity: No Food Insecurity (09/16/2024) Hunger Screening Food Insecurity - Worry: Never True Food Insecurity - Inability: Never True Transportation Needs: No Transportation Needs (08/28/2024) PRAPARE - Transportation Lack of Transportation (Medical): No Lack of Transportation (Non-Medical): No Physical Activity: Sufficiently Active (06/04/2023) Received from [facility] Exercise Vital Sign Days of Exercise per Week: 4 days Minutes of Exercise per Session: 40 min Stress: No Stress Concern Present (06/04/2023) Received from [facility] [place] [facility] Occupational Health - Occupational Stress Questionnaire Feeling of Stress : Only a little Social Connections: Moderately Integrated (06/04/2023) Received from [facility] Social Connection and Isolation Panel [NHANES] Frequency of Communication with Friends and Family: Twice a week Frequency of Social Gatherings with Friends and Family: Once a week Attends Nondenominational Services: 1 to 4 times per year [...] Procedure Component Value Units Date/Time Blood culture [[id number]] Collected: 09/19/24 0123 Specimen: Blood, Venous Updated: 09/19/24 0135 Blood culture [[id number]] Collected: 09/19/24 0026 Specimen: Blood, Venous Updated: [...] Procedure Component Value Units Date/Time Blood culture [[id number]] Collected: 09/19/24 0123 Specimen: Blood, Venous Updated: 09/19/24 0135 Blood culture [[id number]] Collected: 09/19/24 0026 Specimen: Blood, Venous Updated: [...] with panic attacks Hyperlipidemia, acquired Multiple sclerosis ([facility]) LORENZO (obstructive sleep apnea) Primary hypertension [...] 4.1 cm right temporal brain mass with rvkmn-pt-fros 60 mm shift which includes surrounding edema 4.1 cm right temporal brain mass with 6 mm zisho-ok-lcoa midline shift - closely monitor neuro status [...] Jung, further orders to follow. MICHELLE GONZALEZ, ON SITE COORDINATOR-FINANCIAL INSTITUTION MANAGER Acute Care Nurse Practitioner [facility] Please feel free to contact me via Patient Touch Critical Care Time: 39 minutes. Non-contiguous time with attending MD, excluding procedures. [] This patient, with a critical illness, requires constant monitoring and titration of care by a Critical Care Legger Press Operator. Failure to do so may result in further organ system failure, imminent deterioration, or . JACQUELINE Ervin 09/19/2435 Cosigned by Sheila Jung MD at 09/19/2024 6:12 AM EDT documented in this encounter [facility] 09-23-2024 Note XR CHEST 1 VW History: Preoperative exam. History of asthma. Procedure: Chest AP portable upright Comparison: 10/06/2024 Findings: The heart and lungs show no acute findings, and the mediastinum and gema are grossly negative . No pneumothorax. Impression: No acute pulmonary process. Finalized by Shen Farooq MD on 09/23/2024 12:23 PM [facility] 09-22-2024 Consult note Associated Order (s): IP CONSULT TO CARDIOLOGY Images from the original note were not included. [facility] [address] [place] [address] HISTORY & PHYSICAL / CONSULT NOTE Anupama Vasquez PCP: JACQUELINE LNUA Date of Admission: 09/18/2024 Date of Consultation: [...] with surrounding edema. Pt was transferred to [facility]. Pt still has altered mental status. From a cardiac standpoint she was having intermittent narrow complex tachycardia. Previous Medical History: Past Medical History: Diagnosis Date MS (multiple sclerosis) ([facility]) 2012 Previous Surgical History: Past Surgical [...] injection 4 mg 4 mg intravenous Q6H [facility] JACQUELINE Vazquez 4 mg at 09/22/24 0609 [...] injection 5,000 Units 5,000 Units subcutaneous Q8H [facility] JACQUELINE Roth 5,000 Units at 09/22/24 0608 [...] This note was completed using a voice cost accounting clerk system. Every effort was made to ensure accuracy. However, inadvertent computerized cost accounting clerk errors may be present. Melo Gill PA-C 09/22/24 1130 Cosigned by Ned Machado MD at 09/22/2024 1:27 PM EDT Images from the original note were not included. [facility] INTERNAL MEDICINE [facility] - GEN 9 ICU [address] [facility] [address] Hospital Medicine Consultation Patient: Anupama Vasquez Date [...] sleep apnea, obesity who initially presented to [facility] via EMS 09/18/2024 from her extended care facility for altered mental status. Initial lab work at [place] showed hyperkalemia of 5.5 creatinine 15.68, BUN [...] 4.1 cm right temporal brain mass with expuy-xa-gqcl shift and surrounding edema. Case was discussed with neurosurgery and patient was transferred ER to ER here to [facility] for further neurosurgery evaluation. She was admitted [...] patient was treated under our service at [facility] in August for nontraumatic rhabdomyolysis. At that [...] for 30 days. 09/01/24 10/01/24 Tristen Lombardi APRN-FINANCIAL INSTITUTION MANAGER mirtazapine (REMERON CANDI-TAB) 15 mg disintegrating tablet Dissolve 1 tablet (15 mg total) on tongue nightly. Not In System Ref Prov Code Status: Full Code Past Medical History: Patient has a past medical history of MS (multiple sclerosis) ([facility]) (2012). Past Surgical History: Patient has [...] Brain CT from September 18 outside facility [place] PROCEDURE: Multiplanar multisequence images performed through the [...] for surgical planning. 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 [...] for acute or suspicious pathology in the szdhi-ih-lcdo. The trachea and bronchi are patent. No [...] with panic attacks Hyperlipidemia, acquired Multiple sclerosis ([facility]) LORENZO (obstructive sleep apnea) Primary hypertension Primary [...] Medical History: Diagnosis Date MS (multiple sclerosis) ([facility]) 2012 Past Surgical History: Past Surgical History: Procedure Laterality Date CARPAL TUNNEL RELEASE Left SHOULDER ARTHROSCOPY W/ ROTATOR CUFF REPAIR Left Social/ Cognitive/ Economic: readmitted from rehab facility Brief Clinical Summary: past medical history significant for MS, who initially presented to [facility] from her rehab facility with complaints of [...] 22 08/29/2024 Lab Results Component Value Date [id number] 09/19/2024 Lab Results Component Value Date [...] IVPB 3,000 mg intravenous PRN Steffanie Lozano APRN-FINANCIAL INSTITUTION MANAGER calcium gluconate 4,000 mg in sodium chloride 0.9 % 250 mL IVPB 4,000 mg intravenous PRN Steffanie Lozano APRN-RUBINA calcium gluconate IVPB 2000 mg/100 mL (20 mg/mL premix) 2,000 mg intravenous PRN Steffanie Lozano APRN-FINANCIAL INSTITUTION MANAGER dexAMETHasone (DECADRON) injection 4 mg 4 mg intravenous Q6H [facility] Chip Zarate APRN-FINANCIAL INSTITUTION MANAGER 4 mg at 09/21/24 0616 dextrose (GLUTOSE) 40 % gel 15 g 15 g oral PRN MARCELLE Spencer dextrose 2.5 % in water, 1,000 mL infusion 50-150 mL/hr intravenous Continuous Steffanie Lozano APRN-FINANCIAL INSTITUTION MANAGER 50 mL/hr at 09/21/24 0426 50 mL/hr at 09/21/24 0426 dextrose 50 % in water (D50W) 50% solution 25 mL 25 mL intravenous PRN MARCELLE Spencer famotidine (PF) (PEPCID) injection 20 mg 20 mg intravenous Q48H MARCELLE Spencer 20 mg at 09/19/24 0851 glucagon HCL injection 1 mg 1 mg intramuscular PRN MARCELLE Spencer heparin (porcine) injection 5,000 Units 5,000 Units subcutaneous Q8H [facility] MARCELLE Spencer 5,000 Units at 09/21/24 0616 hydrALAZINE (APRESOLINE) injection 10 mg 10 mg intravenous Q6H PRN MARECLLE Spencer 10 mg at 09/20/242119 labetaloL (NORMODYNE,TRANDATE) injection 10 mg 10 mg intravenous Q4H PRN MARCELLE Spencer 10 mg at 09/20/24 203 levETIRAcetam (KEPPRA) IVPB 500 mg/100 mL in iso-osmotic sodium chloride (5 mg/mL premix) 500 mg intravenous Q12H Chip Zarate APRN-FINANCIAL INSTITUTION MANAGER Stopped at 09/21/24 0634 magnesium sulfate IVPB [...] Skin (per nursing flow sheets): Skin Color: [place]; Pale (09/21/24 0800) Skin Temp: Cool; Clammy [...] Body Weight: see above for wt trends [place] Body Weight: 61.4kg Percent [place] Body Weight: 193% Weight Changes: 8.5kg loss/3 months (7%) Body Mass Index: Body mass index is 40.92 kg/m . BMI Category: Obese class 3 (> or = 40.00) Comparative Standards: Estimated Energy Needs: 5340-7669 kcals daily. Method and weight used: 28-32 kcal/kg IBW Estimated Protein Needs: 74-123 grams daily. Method and weight used: 1.2-2g protein/kg IBW Estimated Fluid Needs: 8541-0144 ml daily. Method weight used: 28-32 ml/kg [...] 4.1 cm right temporal brain mass with cfekc-va-dvoi shift 6 cm and surrounding edema. Urology [...] Medical History: Diagnosis Date MS (multiple sclerosis) ([facility]) 2012 Past Surgical History: Past Surgical [...] Resource Strain: High Risk (06/04/2023) Received from [facility] Overall Financial Resource Strain (CARDIA) Difficulty of Paying Living Expenses: Very hard Food Insecurity: No Food Insecurity (09/16/2024) Hunger Screening Food Insecurity - Worry: Never True Food Insecurity - Inability: Never True Transportation Needs: No Transportation Needs (08/28/2024) PRAPARE - Transportation Lack of Transportation (Medical): No Lack of Transportation (Non-Medical): No Physical Activity: Sufficiently Active (06/04/2023) Received from [facility] Exercise Vital Sign Days of Exercise per Week: 4 days Minutes of Exercise per Session: 40 min Stress: No Stress Concern Present (06/04/2023) Received from [facility] [employer] [place] [facility] [employer] - Occupational Stress Questionnaire Feeling of Stress : Only a little Social Connections: Moderately Integrated (06/04/2023) Received from [facility] Social Connection and Isolation Panel [NHANES] Frequency of Communication with Friends and Family: Twice a week Frequency of Social Gatherings with Friends and Family: Once a week Attends Nondenominational Services: 1 to 4 times per year [...] Procedure Component Value Units Date/Time Blood culture [[id number]] Collected: 09/19/24 0123 Specimen: Blood, Venous Updated: 09/19/24134 Blood culture [[id number]] Collected: 09/19/24 002 Specimen: Blood, Venous Updated: [...] without visualized calculus. Approved by Resident Tk Najear MD on 09/19/2024 6:30 AM I, Mao [...] this patient's care. Enid Eaton Jr., M.D. [facility] [phone] Associated Order(s): Consult Neurosurgery Images from the original note were not included. [facility] [address] [place] [address], [address] [place] [address] * NEUROSURGERY CONSULT NOTE DATE:09/19/2024 PATIENT'S NAME: [...] 4 mg, intravenous, Q6H FELTON, Chip Zarate, ELAN-FINANCIAL INSTITUTION MANAGER, 4 mg at 09/19/24 1326 dextrose (GLUTOSE) [...] premix), 500 mg, intravenous, Q12H, Chip Zarate, ON SITE COORDINATOR-[facility], Stopped at 09/19/24 0910 magnesium sulfate [...] Medical History: Diagnosis Date MS (multiple sclerosis) ([facility]) 2013 Past Surgical History: Procedure Laterality [...] Edward- [facility] Please contact via 99 Fahrenheit first then can utilize Patient touch/[employer]oc[employer] if needed 09/19/24 3:10 PM To find out which DIANE is on for the day please go to [facility] and use log in [employer] and search for [facility] Neurosurgery (DIANE and [...] catheter was placed. She was transferred to [facility] for further evaluation management and neurosurgical evaluation [...] retention Right temporal 4.1 brain mass with bnapb-pi-ymdr 60 mm shift with surrounding edema from [...] Resource Strain: High Risk (06/04/2023) Received from [facility] Overall Financial Resource Strain (CARDIA) Difficulty of Paying Living Expenses: Very hard Food Insecurity: No Food Insecurity (09/16/2024) Hunger Screening Food Insecurity - Worry: Never True Food Insecurity - Inability: Never True Transportation Needs: No Transportation Needs (08/28/2024) PRAPARE - Transportation Lack of Transportation (Medical): No Lack of Transportation (Non-Medical): No Physical Activity: Sufficiently Active (06/04/2023) Received from [facility] Exercise Vital Sign Days of Exercise per Week: 4 days Minutes of Exercise per Session: 40 min Stress: No Stress Concern Present (06/04/2023) Received from [facility] [place] [employer] Occupational [employer] - Occupational Stress Questionnaire Feeling of Stress : Only a little Social Connections: Moderately Integrated (06/04/2023) Received from [facility] Social Connection and Isolation Panel [NHANES] Frequency of Communication with Friends and Family: Twice a week Frequency of Social Gatherings with Friends and Family: Once a week Attends Nondenominational Services: 1 to 4 times per year [...] call us with any questions at: Office: [phone] Office Answering Service: [phone] Miriam Church M.D. This note was created with the assistance of a speech-recognition program. Although the intention is to generate a document that actually reflects the content of the visit, no guarantees can be provided that every mistake has been identified and corrected by editing. documented in this encounter [facility] 09-19-2024 Emergency department Note Arrives via flight from [facility]. From a SNF, sent here for altered mental status and abnormal CT results, pt is alert but not oriented. Images from the original note were not included. [facility] - EMERGENCY DEPARTMENT Pt Name: Anupama Vasquez [...] consultation. Per records brought by EMS from [facility] ED patient was seen for urinary retention with GFR of 14.85, altered mental status, patient had a CT done which revealed 4.1 cm right temporal brain mass with iqref-ho-wjod 60 mm shift which includes surrounding edema. Patient is protected airway is able to communicate. History provided by: Patient Past Medical History: Past Medical History: Diagnosis Date MS (multiple sclerosis) ([facility]) 2012 Past Surgical History: Past Surgical [...] Resource Strain: High Risk (06/04/2023) Received from [facility] Overall Financial Resource Strain (CARDIA) Difficulty of Paying Living Expenses: Very hard Food Insecurity: No Food Insecurity (09/16/2024) Hunger Screening Food Insecurity - Worry: Never True Food Insecurity - Inability: Never True Transportation Needs: No Transportation Needs (08/28/2024) PRAPARE - Transportation Lack of Transportation (Medical): No Lack of Transportation (Non-Medical): No Physical Activity: Sufficiently Active (06/04/2023) Received from [facility] Exercise Vital Sign Days of Exercise per Week: 4 days Minutes of Exercise per Session: 40 min Stress: No Stress Concern Present (06/04/2023) Received from [facility] [place] [employer] - Occupational Stress Questionnaire Feeling of Stress : Only a little Social Connections: Moderately Integrated (06/04/2023) Received from [facility] Social Connection and Isolation Panel [NHANES] Frequency of Communication with Friends and Family: Twice a week Frequency of Social Gatherings with Friends and Family: Once a week Attends Nondenominational Services: 1 to 4 times per year [...] requested flight: Flight accepted, will be to [place] at 2300. ETA to [facility] 2330-Midnight 56 SNF Hx of MS Sen t in for abnormal labs BUN and CREAT elevated Repeat has came down CT glioblastoma with mid line shift Alert Alexis in place 2200 output from Alexis 164/104 Triple lumen in neck 22g Flight left about 5 min documented in this encounter [facility] History of Present illness Narrative Images from the original note were not included. Wound Care Progress Note Patient: Anupama Vasquez Date of : 1970 Chief Complaint: Wound on buttocks New patient evaluation SUBJECTIVE/HPI: Anupama is a 54 y.o. 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 Short term goal: medical compliance correction goal: wound closure Patient verbalize understanding of [...] or other health record - ADONAY CASTILLO APRN-FINANCIAL INSTITUTION MANAGER 09/16/24 1:40 PM Adonay Castillo APRN, RUBINA, CWS, COCN [facility] [facility]: [phone] JACQUELINE Germain 09/16/24 0916 documented in this encounter [facility] 09-16-2024 Instructions Angela Chapa RN - 09/16/2024 1:20 PM EDT Wound Management Treatment Plan [facility] Wound Location(s): LEFT BUTTOCKS HOW TO [...] small Serous serous documented in this encounter [facility] 08-18-2024 History of Present illness Narrative Associated [...] Date Abnormal CBC 07/30/2023 Anxiety and depression ([facility]) Carpal tunnel syndrome 2002 Chronic diarrhea Chronic shoulder pain 05/01/2023 Class 3 severe obesity without serious comorbidity with body mass index (BMI) of 45.0 to 49.9 in adult ([facility]) 04/30/2023 Constipation Depression ([facility]) Hot flashes 07/30/2023 Hyperlipidemia, acquired ([facility]) 07/30/2023 Hypertension ([facility]) Knee pain, left anterior Major depression ([facility]) Morbid obesity with BMI of 40.0-44.9, adult ([facility]) Multiple sclerosis ([facility]) Night sweats 07/30/2023 LORENZO (obstructive sleep apnea) 07/30/2023 Pain of left middle finger Primary insomnia Rash Rectal burning Right knee pain, unspecified chronicity Sinusitis Stroke ([facility]) 07/30/2023 Urinary incontinence in female Vaginal discharge Vitamin D deficiency Past Surgical History: Procedure Laterality Date CARPAL TUNNEL RELEASE Right 2004 ECTOPIC SURGERY HYSTERECTOMY 1991 SHOULDER SURGERY Left 02/10/2024 Arthroscopy, RCR @ [facility] w/ MTP TUBAL LIGATION 1990 family history [...] and sugary drinks. documented in this encounter [facility] 08-18-2024 Instructions Fred Gracia NP - 08/18/2024 9:20 AM EDT Cont escitalopram 10mg daily, as well as the aripriazole 10mg daily Increase the buspirone from 5mg , to 7.5mg and you can take this every 8 hour NEEDED for anxiety We will add the mirtazipine for sleep I will refer you to [facility] services in [place], they should call you documented in this encounter [facility] 08-03-2024 Telephone encounter Note Patient needs to reschedule appointment she missed today. She is [facility] patient and was scheduled with [facility]. [facility] follow up visits are 30 minutes and new patients 40 minutes. This would be follow up visit. [facility] Work Phone: 08-03-2024 Miscellaneous Notes Patient needs to reschedule appointment she missed today. She is [facility] patient and was scheduled with [facility]. [facility] follow up visits are 30 minutes and new patients 40 minutes. This would be follow up visit. documented in this encounter [facility] 06-17-2024 History of Present illness Narrative Associated [...] 10 MG tablet documented in this encounter [facility] 06-17-2024 Instructions Sherrie Boone NP - 06/17/2024 [...] Date Abnormal CBC 07/30/2023 Anxiety and depression ([facility]) Carpal tunnel syndrome 2002 Chronic diarrhea Chronic shoulder pain 05/01/2023 Class 3 severe obesity without serious comorbidity with body mass index (BMI) of 45.0 to 49.9 in adult ([facility]) 04/30/2023 Constipation Depression ([facility]) Hot flashes 07/30/2023 Hyperlipidemia, acquired ([facility]) 07/30/2023 Hypertension ([facility]) Knee pain, left anterior Major depression ([facility]) Morbid obesity with BMI of 40.0-44.9, adult ([facility]) Multiple sclerosis ([facility]) Night sweats 07/30/2023 LORENZO (obstructive sleep apnea) 07/30/2023 Pain of left middle finger Primary insomnia Rash Rectal burning Right knee pain, unspecified chronicity Sinusitis Stroke ([facility]) 07/30/2023 Urinary incontinence in female Vaginal discharge Vitamin D deficiency Past Surgical History: Procedure Laterality Date CARPAL TUNNEL RELEASE Right 2004 ECTOPIC SURGERY HYSTERECTOMY 1991 SHOULDER SURGERY Left 02/10/2024 Arthroscopy, RCR @ [facility] w/ MTP TUBAL LIGATION 1990 family history [...] (BMI) of 45.0 to 49.9 in adult ([facility]) Discussed with patient their BMI (actual, [...] takes meds sleeps 7 hours Multiple sclerosis ([facility]) Continue with neurology and treatment Encounter for screening mammogram for malignant neoplasm of breast Relevant Orders Bilateral screening mammogram Depression ([facility]) Husbands over the last few months, [...] weeks Need mammogram-I will fax order to [facility] documented in this encounter [facility] 05-04-2024 Telephone encounter Note Per Aria Kumar, PT, she advises to notify Anupama and inform due to ongoing neck pain we'd be able to cx Eval that is scheduled tomorrow. Though note w/ the date range post shoulder we'll keep referral open and to contact if neck pain may reside and willing to partake PT for shoulder. She noted the recommendation. [facility] 05-04-2024 Miscellaneous Notes Per Aria Kumra, PT, she advises to notify Anupama and [...] notify if requested. documented in this encounter [facility] 05-04-2024 Telephone encounter Note She called noting she has been having severe neck pain which results in 3 bulging discs in her neck; she has an appt w/ Oren Chinchilla 08/11/24. Due to severity of pain she feels PT addressing her shoulder would be useless beginning tomorrow. She cx; I noted I would inform PT and notify if requested. [facility] 04-27-2024 History of Present illness Narrative Associated [...] to verify the correct patient, procedure, equipment, logistics support and site/side marked as required. Patient was [...] for breakthrough discomfort. documented in this encounter [facility] 04-27-2024 Instructions MARCELLE Perea - 04/27/2024 9:00 [...] for breakthrough discomfort. documented in this encounter [facility] 04-27-2024 Telephone encounter Note Please call to schedule pt a fu appt in the next month [place] [facility] 04-27-2024 Miscellaneous Notes Please call to schedule pt a fu appt in the next month [place] documented in this encounter [facility] 03-09-2024 Telephone encounter Note Patient stated she [...] ass she's doing it and hung up. [facility] 03-09-2024 Miscellaneous Notes Patient stated she has [...] and hung up. documented in this encounter [facility] 03-05-2024 History of Present illness Narrative Associated [...] hours as needed for shoulder surgical pain., [employer] #[id number], 167.7, cm, 02/05/24 11:09:00 EDT, [...] Date Abnormal CBC 07/30/2023 Anxiety and depression ([facility]) Carpal tunnel syndrome 2002 Chronic diarrhea Chronic shoulder pain 05/01/2023 Class 3 severe obesity without serious comorbidity with body mass index (BMI) of 45.0 to 49.9 in adult ([facility]) 04/30/2023 Constipation Depression ([facility]) Hot flashes 07/30/2023 Hyperlipidemia, acquired ([facility]) 07/30/2023 Hypertension ([facility]) Knee pain, left anterior Major depression ([facility]) Morbid obesity with BMI of 40.0-44.9, adult ([facility]) Multiple sclerosis ([facility]) Night sweats 07/30/2023 LORENZO (obstructive sleep apnea) 07/30/2023 Pain of left middle finger Primary insomnia Rash Rectal burning Right knee pain, unspecified chronicity Sinusitis Stroke ([facility]) 07/30/2023 Urinary incontinence in female Vaginal discharge Vitamin D deficiency Past Surgical History: Procedure Laterality Date CARPAL TUNNEL RELEASE Right 2004 ECTOPIC SURGERY HYSTERECTOMY 1991 SHOULDER SURGERY Left 02/10/2024 Arthroscopy, RCR @ [facility] w/ MTP TUBAL LIGATION 1990 family history [...] Relevant Orders Flu vaccine, MDCK, quadrivalent, PF (LYE251) (Flucelvax single dose syringe) Candidiasis of skin D/t her arm being in a sling, she is requesting we use nystatin powder as cream and ointment is not something she can properly use at this time Relevant Medications nystatin (Mycostatin) 608865 UNIT/GM powder documented in this encounter [facility] 02-25-2024 History of Present illness Narrative Chief [...] for 2 more weeks. PT was sent [facility]'s Nitish large RC repair protocol. F/U will be in 2 months, prn if doing well. All questions answered. documented in this encounter [facility] 02-14-2024 Telephone encounter Note MTP- PO Lt [...] you please call patient and inform her. [facility] 02-14-2024 Miscellaneous Notes MTP- PO Lt shoulder [...] and inform her. documented in this encounter [facility] 02-13-2024 Telephone encounter Note Was wanting to know if she could stop taking the percocet, pain isn't that bad and she was wanting to take her trazodone. [facility] 02-13-2024 Miscellaneous Notes Was wanting to know if she could stop taking the percocet, pain isn't that bad and she was wanting to take her trazodone. documented in this encounter [facility] 02-10-2024 Hospital Discharge instructions Patient Education 02/10/2024 15:39:49 Shoulder Cryocuff Patient Instructions - FT (CUSTOM) 02/10/2024 15:39:45 Post Op Patient Instructions - FT (CUSTOM) 02/06/2024 18:01:14 Brooks - After Your Shoulder Arthroscopy (Revised 06/17/14) (CUSTOM) [place], [place] [facility] AFTER YOUR SHOULDER ARTHROSCOPY [...] appointment. Eliazar Brooks, DO [facility] [address] [place], [place] [id number] Reviewed: 06-03 Follow Up Care 12/24/2023 11:37:06 With:YUE Santamaria Address: [address] [place] [address]- Business (1) When:02/25/2024 14:30:00 Comments:Keep scheduled appointmentCall for any problems. [facility] 02-10-2024 Note Progress Note-Physic nakul Patient: ANUPAMA VASQUEZ Age: 53 years Sex: Female : 1970 Associated Diagnoses: None Author: Mina BENITEZ, Mynor Markham Postoperative Information Postoperative disposition: Postoperative disposition: To PACU. Optimetrix number: Optimetrix number [id number]. Anesthetic utilized: General. Regional: Interscalene Block. Health [...] when meets criteria ( To home ). [facility] Comment on above: Result Comment: Elec tronically Signed By: Mina BENITEZ, Mynor Markham\.br\Date and Time Signed: 02/10/24 16:19 EDT 02-10-2024 Note Patient Education - Text [place], [place] [facility] AFTER YOUR SHOULDER ARTHROSCOPY [...] your appointment. Eliazar Brooks, DO [facility] [address] [place] [address] Reviewed: 06-[address] [facility] 02-10-2024 Evaluation + Plan note Extrac jonah from: Title:ANES Post-operative Note---General Author: Mynor Vega MD Date:02/10/24 Plan Transfer/Discharge: Transfer/Discharge Discharge when meets criteria ( To home ). Extracted from: Title:ANES Pre-operative Note 2022 Author:Mynor Young. Date:02/10/24 Plan [place] [employer] Anesthesiologists (ASA) physical status classification: Class III. Anesthetic Preoperative Plan: Anesthesia General, and LMA. Regional Interscalene block. [facility] 09-23-2024 NoteProgress Note-Physician Patient: ANUPAMA VASQUEZ [...] hours as needed for shoulder surgical pain., [employer] #72, 167.7, cm, 02/05/24 11:09:00 EDT, [...] mL/hr PRN: (12) acetaminophen-oxyC (more content not included)...[facility] Comment on above:Result Comment: Electronically Signed By: Mina BENITEZ, Mynor Markham\.br\Date and Time Signed: 02/10/24 13:21 [id number] History of Present illness Narrative* Fred Gracia [...] to see neuro to oren jackson at [facility] * Fred Gracia NP - 02/03/2024 2:20 [...] Oral, 2 times daily, Take with food Iuytpkl-Awlzlibjxpj-Rrgpbuhesi ([employer]) 160-9-4.8 MCG/ACT aerosol 2 puffs, [...] Date Abnormal CBC 07/30/2023 Anxiety and depression ([facility]) Carpal tunnel syndrome 2002 Chronic diarrhea Chronic shoulder pain 05/01/2023 Class 3 severe obesity without serious comorbidity with body mass index (BMI) of 45.0 to 49.9 in adult ([facility]) 04/30/2023 Constipation Depression ([facility]) Hot flashes 07/30/2023 Hyperlipidemia, acquired ([facility]) 07/30/2023 Hypertension ([facility]) Knee pain, left anterior Major depression ([facility]) Morbid obesity with BMI of 40.0-44.9, adult ([facility]) Multiple sclerosis ([facility]) Night sweats 07/30/2023 LORENZO (obstructive sleep apnea) 07/30/2023 Pain of left middle finger Primary insomnia Rash Rectal burning Right knee pain, unspecified chronicity Sinusitis Stroke ([facility]) 07/30/2023 Urinary incontinence in female Vaginal [...] (Augmentin) 875-125 MG tablet documented in [id number] History of Present illness Narrative* Renuka Bui [...] Date Abnormal CBC 07/30/2023 Anxiety and depression ([facility]) Carpal tunnel syndrome 2002 Chronic diarrhea Chronic shoulder pain 05/01/2023 Class 3 severe obesity without serious comorbidity with body mass index (BMI) of 45.0 to 49.9 in adult ([facility]/HCC) 04/30/2023 Constipation Depression (CMS/HCC) Hot flashes 07/30/2023 Hyperlipidemia, acquired ([facility]/HCC) 07/30/2023 Hypertension (CMS/HCC) Knee pain, left anterior Major depression ([facility]/HCC) Morbid obesity with BMI of 40.0-44.9, adult ([facility]) Multiple sclerosis ([facility]/HCC) Night sweats 07/30/2023 LORENZO (obstructive sleep apnea) 07/30/2023 Pain of left middle finger Primary insomnia Rash Rectal burning Right knee pain, unspecified chronicity Sinusitis Stroke ([facility]) 07/30/2023 Urinary incontinence in female Vaginal [...] 2 puffs, Inhalation, Every 6 hours PRN Tvclfds-Scwwupvtrwr-Qfwbcgtmtm ([employer]) 160-9-4.8 MCG/ACT aerosol 2 puffs, [...] shoulder. Eliazar Brooks D.O. documented in this encounterSSM [id number] Telephone encounter Note* Telephone Encounter - Michelle Lujan - 01/17/2024 12:20 PM EDT Called patient back to let her know that Jessica's preference is for the patient to remain at [facility] ifshe is to order the medication. Patient said she would establish care with local neurologist. [facility]08-30-2024 Miscellaneous Notes* Telephone Encounter - Michelle Lujan - 01/17/2024 [...] patient: Self Return call phone number : [phone] Reason for call : Other : Brief description of concern :Please fax infusion orders to [phone] [facility]. [facility] Telephone encounter Note * Telephone Encounter - Miri Soni - 01/14/2024 2:09 PM EDT Kriss Call Name of caller : Anupama Vasquez Relationship to patient: Self Return call phone number : [phone] Reason for call : Other : Brief description of concern :Please fax infusion orders to [phone] [facility] Work Phone: [phone] Telephone encounter Note* Telephone Encounter - She [...] to call if she changes her mind. [facility]08-01-2024 Miscellaneous Notes* Telephone Encounter - She [...] she changes her mind. [facility] NoteHNO ID: [id number] Author: LASHAUN VASQUEZ PA-C Service: ? Author Type: Physician After School Program Assistant Type: Progress Notes Filed: 09/06/2023 10:11 Note Text: SPINE SURGERY OUTPATIENT CONSULT This is a virtual visit using [employer] Video Visit. It required patient-provider interaction for the medical decision making as documented below. I have communicated my name and active licensure. The patient's identity and physical location were verified at the time of this visit. Either the patient or their legal electroplating sales representative has been informed of the risks and benefits of -- and alternatives to -- treatment through a remote evaluation and consents to proceed with the evaluation remotely. SERVICE DATE: 09/06/2023 PCP: Valdez Acosta MD REFERRING PROVIDER: Jessica Clarke [phone] [facility] [phone] Consult requested for an opinion regarding the [...] in the past as well. Works with [employer] for her MS. Saw an outside orthopedic [...] Function Percentile 7 1 (more content not included)...[facility]04-19-2024 History of Present illness Narrative* Lashaun Vasquez PA-C - 09/06/2023 9:41 AM EDT SPINE SURGERY OUTPATIENT CONSULT This is a virtual visit using [employer] Video Visit. It required patient- provider interaction for the medical decision making as documented below. I have communicated my name and active licensure. The patient's identity and physical location wereverified at the time of this visit. Either the patient or their legal electroplating sales representative has been informed of the risks and benefits of -- and alternatives to -- treatment through a remote evaluation andconsents to proceed with the evaluation remotely. SERVICE DATE: 09/06/2023 PCP: Valdez Acosta MD REFERRING PROVIDER: Jessica Clarke [id number] [facility] [id number] Consult requested for an opinion regarding the [...] in the past as well. Works with [employer] for her [place]. Saw an outside orthopedic [...] DATA REVIEW [facility] records independently reviewed ASSESSMENT/PLAN (R28.486) Left arm weakness (primary encounter diagnosis) Virtual [...] TIME: 9:41 AM PAGER: documented in this encounterPeoples [facility]04-09-2024 NoteHNO ID: [id number] Author: ANISHA SANCHEZ PA-C Service: ? Author Type: Physician After School Program Assistant Type: Progress Notes Filed: 08/27/2023 11:37 Note [...] from ongoing conservative management. BMI 47.78 [facility] History of Present illness Narrative* Anisha Sanchez [...] Health Provider or Pain Management Provider at [facility]? No If answer is YES please [...] the MRI/CT/myelogram was completed: [facility] Address: [address] [place] [address] MRI/CT/myelogram viewable in Epic: Yes If not, please provide [phone] to fax in imaging reports for review. [...] where the surgery was completed: Additional Comments [phone] (Home Phone) documented in this encounterPeoples Hospital04-04-2024 NoteHNO ID: [id number] Author: ?, ?, ? Service: ? Author Type: ? Type: Progress Notes Filed: 08/27/2023 11:37 Note Text: Patient name: Anupama Vasquez Are you being referred by a [facility] Spine Health Provider or Pain Management Provider at [facility]? No If answer is YES please [...] the MRI/CT/myelogram was completed: [facility] Address: [address] [place] [address] MRI/CT/myelogram viewable in Epic: Yes If not, please provide [phone] to fax in imaging reports for review. [...] where the surgery was completed: Additional Comments [phone] (Home Phone)[facility]04-03-2024 Miscellaneous Notes* Telephone Encounter - Renuka Ellison - 08/21/2023 4:17 PM EDT Kriss Call Name of caller : Anupama Vasquez Relationship to patient: Self Return call phone number : [phone] Reason for call : Other : Brief [...] call to discuss further. documented in this encounterPeoples Hospital02-28-2024 Miscellaneous Notes* Telephone Encounter - Elizabeth Victoria RN - 07/17/2023 9:04 AM EST Called patient, no answer. Message left indicating Telx message would be sent with reason for [...] since c-spine MRI was completed locally outside [facility] in April. Orders already placed * Telephone Encounter - Anjelica Alba - 07/15/2023 3:18 PM EST [place] Call Name of caller : Steffanie Relationship to patient: Caregiver Return call phone number : appointments Reason for call : Order for MRI needed for Brain and Cervical documented in this encounterPeoples Hospital02-21-2024 History of Present illness Narrative* Paris Toledo DO - 07/10/2023 6:00 PM EST [facility] Initial Evaluation July 10, 2023 This appointment was requested by Jessica Clarke PA-C, for my medical opinion regarding the evaluation and management of the patient's Anupama Vasquez problems, and my final recommendations will be communicated to the requesting health care provider by way of the shared medical record for internal providers or letter via the [employer] Postal Service for external providers. SUBJECTIVE: Anupama Vasquez a 53 year old [facility], accompanied by self [...] PT several years ago (+) relief [place] Alcohol Abuse - No Drug Abuse - [...] No history of dysuria, frequency or incontinence PROFILER HAND: Negative for abnormal vaginal bleeding, abnormal vaginal [...] supervised home exercise program (HEP): No 5. [place] Pilot: No Passive conservative therapy lasting 6 weeks [...] PA-C for allowing me to participate in Anupama Vasquez's care. I spent a total of 45 minutes on the date of the service which included preparing to see the patient, [id number] patient care, completing clinical documentation, performing a medically appropriate examination, counseling and educating the patient/family/caregiver, ordering medications, tests, or p rocedures, and communicating with other HCPs (not separately reported). Paris Toledo DO July 10, 2023 documented in this encounterPeoples Hospital02-21-2024 NoteHNO ID: [id number] Author: PARIS TOLEDO DO Service: ? Author Type: Physician Type: Progress Notes Filed: 07/12/2023 11:26 Note Text: [facility] Initial Evaluation July 10, 2023 This appointment was requested by Jessica Clarke PA-C, for my medical opinion regarding the evaluation and management of the patient's Anupama Vasquez problems, and my final recommendations will be communicated to the requesting health care provider by way of the shared medical record for internal providers or letter via the [employer] Postal Service for external providers. SUBJECTIVE: Anupama Vasquez a 53 year old presents [facility], accompanied by self [...] (MS) PT several years ago (+) relief [facility] Alcohol Abuse - No Drug [...] No history of dysuria, frequency or incontinence PROFILER HAND: Negative for abnormal vaginal bleeding, abnormal vaginal discharge MUSCULOSKELETAL: Negative for joint pain or swelling, back pain or muscle pain. NEUROLOGIC:Negative for focal numbness or weakness, headaches and dizziness or syncope. SKIN:Negative for lesions, rash, and itching. PSYCHIATRIC: Negative for sleep disturbance, mood disorder and recent psychosocial stressors. [place] (more content not included)...[facility]02-07-2024 History of Present illness Narrative* Shaikh [...] 8 weeks (around 08/21/2023). documented in this encounterSSM [id number] NoteHNO ID: [id number] Author: She Brand RN Service: ? Author [...] ; pt states she had her tubes tied.[facility]12-14-2023 History of Present illness Narrative* Jessica Clarke PA-C - 05/02/2023 7:30 AM EST Images from the original note were not included. [facility] MULTIPLE SCLEROSIS FOLLOWUP/ESTABLISHED PATIENT VIRTUAL VISIT PRINCIPAL [...] visit. Either the patient or their legal electroplating sales representative has been informed of the risks [...] Flowsheet Row Office Visit from 03/22/2022 in [facility] Office Visit from 11/14/2021 in [facility] Distance Health from 09/15/2021 in [facility] Upper Extremity Domain T [...] Flowsheet Row Office Visit from 03/22/2022 in [facility] Office Visit from 11/14/2021 in [facility] Distance Health from 09/15/2021 in [facility] Sleep Domain T Score [...] which included preparing to see the patient, [id number] patient care, completing clinical documentation, obtaining and/or reviewing separately obtained history, counseling and educating the patient/family/caregiver, ordering medications, manuel ts, or procedures, communicating with other HCPs (not separately reported), and communicating results to the patient/family/caregiver. The patient was discussed with Dr. Escobar prior to appointment. Jessica Clarke PA-C documented in this encounterPeoples Hospital12-14-2023 NoteHNO ID: [id number] Author: Jessica Clarke PA-C Service: ? Author Type: Physician After School Program Assistant Type: Progress Notes Filed: 05/02/2023 5:39 PM Note Text: [facility] MULTIPLE SCLEROSIS FOLLOWUP/ESTABLISHED PATIENT VIRTUAL VISIT PRINCIPAL [...] visit. Either the patient or their legal electroplating sales representative has been informed of the risks [...] Flowsheet Row Office Visit from 03/22/2022 in [facility] Office Visit from 11/14/2021 in [facility] from 09/15/2021 in [facility] Upper Extremity Domain T Score 32.58 -- 34 Lower Extremity Domain T Score 36.57 -- 37 Cognitive Function Domain T Score 38.32 39 41 Positive Affect Well Being T Score -- -- -- Ability To Participate In Social Roles T Score 29.36 39 43 Satisfaction With Social Roles T Score 40.46 -- 36 Neuro-QoL Symptoms (higher=worse symptoms) Flowsheet [facility] Office Visit from 03/22/2022 in [facility] Office Visit from 11/14/2021 in [facility] from 09/15/2021 in [facility] Sleep Domain T Score [...] spent a total of (more content not included)...[facility] 04-18-2022 Evaluation note* Encounter Date Diagnosis Assessment Notes Treatment Notes Treatment Clinical Notes Mar, Change in bowel function (ICD-10 - R19.4) CONTINUE METAMUCIL DIRECTED RTO 1 YR [employer] Other 11-11-2022 Miscellaneous Notes* Telephone Encounter - Lily Monique - 03/30/2022 2:06 PM EST Patient is calling today and would like to inform that she has a new PCP. Would like to ask that Dr Acosta be removed. She now sees a Dr Fred Arteaga in [place]. Any questions please call patient at [phone] documented in this encounterPeoples Hospital11-03-2022 History of Present illness Narrative* Jessica Clarke PA-C - 03/22/2022 12:40 PM EDT Images from the original note were not included. [facility] MULTIPLE SCLEROSIS FOLLOWUP/ESTABLISHED PATIENT VISIT PRINCIPAL [...] Flowsheet Row Office Visit from 03/22/2022 in [facility] Office Visit from 11/14/2021 in [facility] Distance Health from 09/15/2021 in [facility] Upper Extremity Domain T [...] Flowsheet Row Office Visit from 03/22/2022 in [facility] Office Visit from 11/14/2021 in [facility] from 09/15/2021 in [facility] Sleep Domain T Score 61.04 -- 64 Fatigue Domain T Score 58.38 -- 65 Anxiety Domain T Score 58.73 -- 61 Depression Domain T Score 60.06 58 60 Stigma Domain T Score 58.45 -- 57 Emotional Behavior Dyscontrol T Score -- -- -- *NeuroQoL is a multi-domain patient-reported quality of life questionnaire. PHQ-9 Flowsheet [facility] from 09/15/2021 in [facility] Office Visit from 11/01/2020 in [facility] PHQ-9 Score 11 16 *PHQ-9 is a questionnaire for depressive symptoms, with scores 0-4 indicating none, 5-9 mild, 10-14moderate, 15-19 moderately severe, and 20-27 severe symptoms. PROMIS-10 Flowsheet Row OT/PT/Speech Visit from 01/16/2022 in [facility] Occupational Therapy [facility] from 09/15/2021 in [facility] Global Physical Health T [...] 5 Biceps 5 5 Triceps 5 5 Plastics Patternmaker 5 5 Dorsal interossei 5 5 Lower [...] Stretching Follow-up: In 6 months at [facility] I spent a total of 30 minutes on the date of the service which included preparing to see the patient, znwc-nl-[id number] patient care, completing clinical documentation, obtaining and/or reviewing separately obtained history, performing a medically appropriate examination, counseling and educating the pat ient/family/caregiver, ordering medications, tests, or procedures, and communicating results to thepatient/family/caregiver. Jessica Clarke PA-C The chart was reviewed for possible participation in the following studies:None documented in this encounterPeoples Hospital10-18-2022 History of Present illness Narrative* Lizbeth [...] Care Gap or Scheduling/Wellness visits Payer: Payor: [facility] MEDICAID / Plan: [facility] COMMUNITY PLAN MEDICAID OF [...] 06, 2022 4:06 PM documented in this encounterPeoples Hospital09-26-2022 Miscellaneous Notes* Telephone Encounter - Jaycee Haley - 02/12/2022 9:08 AM EDT Called pt LVM to see about setting up pt and psycology. 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; 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; 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, [...] flexion 5/ 5/5 Wrist extension 5/5 5/5 Plastics Patternmaker strength (Alexis position 2) 70 lbs 53 [...] from floor: 4 = able to picking supervisor object safely and easily Looking over [...] test: Right 24.13, 23.06 seconds; CV = 0.68057% Left 22.41, 26.54 seconds; CV = 0.92066% Norms for a 51 year old female [...] 60 35 YES Valid YES Valid Right relay motorman best result: 80 lbs; percentile rank = 75 % Left relay motorman best result: 78 lbs; percentile rank = 90 % Tremors?: No Hand Plastics Patternmaker Norms: MALE Percentile - lbs. 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 X Agree Disagree 2. In a [...] 8 units: 113-127 mins Physical Performance Test (40090) Skilled Intervention: Neurologically-based functional capacity evaluation specific to the diagnosisof Multiple Sclerosis. Proper administration and selection of physical performance test based on clinical presentation, deficits, and needs. Jojo Pickard OTR/Verena documented in this encounterPeoples Hospital07-27-2022 Evaluation note* Encounter Date Diagnosis Assessment Notes Treatment Notes Treatment Clinical Notes Nov, Change in bowel function (ICD-10 - R19.8) ENCOURAGED METAMUCIL CAPSULES DAILY. Nov, Tubular adenoma (ICD-10 - D36.9) WILL REPEAT COLON IN 5 YEARS Nov, Diverticulosis (ICD-10 - K57.90) Nov, Hemorrhoids (ICD-10 - K64.9) [employer] Other 06-28-2022 History of Present illness Narrative* aSrthak Escobar MD, PhD - 11/14/2021 8:31 AM EDT Images from the original note were not included. [facility] FOR MULTIPLE SCLEROSIS FOLLOWUP/ESTABLISHED PATIENT VISIT PRINCIPAL [...] (higher=better functioning) Office Visit from 11/14/2021 in [facility] from 09/15/2021 in [facility] OfficeVisit from 11/01/2020 in [facility] Upper Extremity Domain T Score 34 30 Lower Extremity Domain T Score 37 40 Cognitive Function Domain T Score 39 41 36 Positive Affect Well Being T Score Ability To Participate In Social Roles T Score 39 43 46 Satisfaction With Social Roles T Score 36 39 Neuro-QoL Symptoms (higher=worse symptoms) Office Visit from 11/14/2021 in [facility] from 09/15/2021 in [facility] OfficeVisit from 11/01/2020 in [facility] Sleep Domain T Score 64 64 Fatigue Domain T Score 65 69 Anxiety Domain T Score 61 65 Depression Domain T Score 58 60 66 Stigma Domain T Score 57 63 Emotional Behavior Dyscontrol T Score *NeuroQoL is a multi-domain patient-reported quality of life questionnaire. PHQ-9 [facility] from 09/15/2021 in [facility] Office Visit from 11/01/2020 in [facility] PHQ-9 Score 11 16 *PHQ-9 is a questionnaire for depressive symptoms, with scores 0-4 indicating none, 5-9 mild, 10-14moderate, 15-19 moderately severe, and 20-27 severe symptoms. PROMIS-10 [facility] from 09/15/2021 in [facility] Office Visit from 11/01/2020 in [facility] Global Physical Health T [...] 5 Biceps 5 5 Triceps 5 5 Plastics Patternmaker 5 5 Dorsal interossei 5 5 Lower [...] Lymph 1.00 - 4.00 k/uL 0.60 (L) Ralls% % 12.0 Abs Ralls <0.87 k/uL 0.74 Eosin% % 2.4 Abs [...] 7T brain MRI in 3 months at [place]. Will hold next infusion until reviewing MRI. [...] and Stretching Follow-up: In 3 months at [place] with [facility] I spent a total of 40 minutes on the date of the service which included preparing to see the patient, ozre-fk-cysu patient care, completing clinical documentation, obtaining and/or reviewing separately obtained history, performing a medically appropriate examination, counseling and educating the pat ient/family/caregiver, ordering medications, tests, or procedures, independently interpreting results (not separately reported) and communicating results to the patient/family/caregiver. The patient was discussed with Dr. Escobar. Jessica Clarke PA-C [facility] STAFF PHYSICIAN NOTE OF PERSONAL [...] Sarthak Escobar MD, PhD Associate Staff Neurologist [facility] for Multiple Sclerosis documented in this encounterPeoples Hospital06-28-2022 History of Present illness Narrative* Eliazar Gupta [...] 2021 TIME: 7:43 AM documented in this encounterPeoples Hospital04-29-2022 History of Present illness Narrative* Jessica Clarke PA-C - 09/15/2021 11:19 AM EDT Images from the original note were not included. 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 - changed anxiety and depression meds [...] Functions (higher=better functioning) Appointment from 09/15/2021 in [facility] Office Visit from 11/01/2020 in [facility] Office Visit from 07/31/2019 in [facility] Upper Extremity Domain T Score 34 30 41.73 Lower Extremity Domain T Score 37 40 41.61 Cognitive Function Domain T Score 41 36 45 Positive Affect Well Being T Score 40.79 Ability To Participate In Social Roles T Score 43 46 39.92 Satisfaction With Social Roles T Score 36 39 43.36 Neuro-QoL Symptoms (higher=worse symptoms) Appointment from 09/15/2021 in [facility] Office Visit from 11/01/2020 in [facility] Office Visit from 07/31/2019 in [facility] Sleep Domain T Score [...] available 4. Consult OT - [facility] at [place] 5. Continue with PCP as planned I spent a total of 20 minutes on the date of the service which included preparing to see the patient, bsqe-qh-skll patient care, completing clinical documentation, obtaining and/or reviewing separately obtained history, counseling and educating the patient/family/caregiver, ordering medications, manuel ts, or procedures and communicating results to the patient/family/caregiver. Jessica Clarke PA-C documented in this encounterPeoples Hospital04-19-2022 [facility]Met[facility] Evaluation note* Encounter Date Diagnosis Assessment Notes Treatment Notes Treatment Clinical Notes Jul, Constipation (ICD-10 - K59.00) Jul, Rectal bleeding (ICD-10 - K62.5) Jul, Rectal pain (ICD-10 - K62.89) Sample of Recticare cream given to patient Jul, Change in stool caliber (ICD-10 - R19.4) [place] [employer] Other evaluation + Plan note Future Appointments Appointment Date:02/10/2024 03:00:00 PM Scheduled Provider: Location:[facility] Appointment Type:[facility] evaluation noteNo assessment information available [facility] Work Phone: evaluation note* Diagnosis Multiple sclerosis, relapsing-remitting (HCC) Multiple sclerosis documented in this encounter [facility] note* Diagnosis Multiple sclerosis (HCC)- Primary Multiple sclerosis Multiple sclerosis, relapsing-remitting (HCC) Multiple sclerosis documented in this encounter [facility] noteNo InformationNort [employer] Other Evaluation note* Diagnosis Multiple sclerosis, relapsing-remitting (HCC) Multiple sclerosis [facility]* Diagnosis Multiple sclerosis, relapsing-remitting (HCC)- Primary Multiple sclerosis [facility]* Diagnosis Encounter for screening mammogram for breast cancer documented in this [facility]* Diagnosis Multiple sclerosis, relapsing-remitting (HCC) Multiple sclerosis documented in this [facility]* Diagnosis Multiple sclerosis (HCC)- Primary Multiple sclerosis [facility]* Diagnosis Multiple sclerosis, relapsing-remitting (HCC)- Primary Multiple sclerosis [facility]* Diagnosis Multiple sclerosis, relapsing-remitting (HCC)- Primary Multiple sclerosis [facility]* Diagnosis Encounter for screening mammogram for breast cancer [facility]* Diagnosis Multiple sclerosis (HCC)- Primary Multiple sclerosis [facility]* Diagnosis Multiple sclerosis (CMS/HCC)- Primary Multiple sclerosis Primary hypertension (CMS/HCC) Unspecified essential hypertension Anxiety and depression (CMS/HCC) COPD with exacerbation (CMS/HCC) Non-recurrent acute suppurative otitis media of left ear without spontaneous rupture of tympanic membrane documented [facility]* Diagnosis Cervical disc disorder with radiculopathy- Primary Brachial neuritis or radiculitis nos Cervical stenosis of spine Spinal stenosis in cervical region Chronic neck pain Cervicalgia [facility] Multiple [facility] (HCC)- Primary Multiple sclerosis [facility]* Diagnosis Cervical stenosis of spine- Primary Spinal stenosis in cervical region [facility] Diagnosis Left arm weakness- Primary Other musculoskeletal symptoms referable to limbs [facility]* Diagnosis Multiple sclerosis (HCC)- Primary Multiple sclerosis Vitamin D deficiency Unspecified vitamin D deficiency [facility]* Diagnosis S/P arthroscopy of left [...] skin and nails documented in this encounter [facility]* Diagnosis Class 3 [...] of left shoulder documented in this encounter [facility]* Diagnosis Class 3 [...] and depression (CMS/HCC) documented in this encounter [facility]* Diagnosis Pre-op testing- Primary [...] frontal sinusitis- Primary documented in this encounter [facility]* Diagnosis Class 3 [...] or maintaining sleep documented in this encounter [facility]* Diagnosis Class 3 [...] (male)(female) Yeast dermatitis documented in this encounter [facility]* Diagnosis Dermatitis associated with moisture- Primary Pressure injury of left buttock, stage 2 ([facility]-HCC) [facility] [...] anxiety disorder with panic attacks Multiple sclerosis ([facility]-HCC) Multiple sclerosis documented in this encounter [facility] SystemHistory general Narrative - Reported* Type Description Date Surgical History ectopic Surgical History tubal ligation Surgical History caprpal tunnel release [employer] Other History general Narrative - Reported* Type Description Date Surgical History ectopic Surgical History tubal ligation Surgical History caprpal tunnel release Hospitalization History see above Skim[facility] Other Hospital course Narrative No data available for this section [facility] Discharge instructions No data available for this section [facility] InstructionsNot on filedocumented in this encounter [facility] SystemProgress note No data available for this section [facility] health for referral (narrative)* Diagnostic Procedure Only (Routine) - Pending Review Specialty Diagnoses / Procedures Referred By Contac t Referred To Contact BR IMAGING Diagnoses Encounter for screening mammogram for breast cancer Procedures ALIYA SCREENING SCREENING MAMMOGRAPHY BI 2-VIEW BREAST INC Valdez Cohen MD [address] [place] [address] Br Imaging [address] [place] [address] Referral ID Status Reason Start Date Expiration Date Visits Requested Visits Authorized [id number] Pending Review Auto-Generat ed Referral 11/15/2021 12/15/2022 1 1 [facility] for referral (narrative)* Diagnostic Procedure Only (Routine) - Pending Review Specialty Diagnoses / Procedures Referred By Contac t Referred To Contact BR IMAGING Diagnoses Encounter for screening mammogram for breast cancer Procedures ALIYA SCREENING SCREENING MAMMOGRAPHY BI 2-VIEW BREAST INC Valdez Cohen MD [address] [place] [address] Br Imaging [address] [place] [address] Referral ID Status Reason Start Date Expiration Date Visits Requested Visits Authorized [id number] Pending Review Auto-Generat ed Referral 10/17/2022 11/16/2023 1 1 [facility] for referral (narrative)* Consultation (Routine) Specialty Diagnoses / Procedures Referred By Contac t Referred To Contact Neurology [facility] [address] [place] [phone] Aron Chinchilla MD [address] [place] [address] Referral ID Status Reason Start Date Expiration Date V isits Requested Visits Authorized Specialty Services Required [facility] for visit NarrativeREFERRED BY FRED GRACIA FOR CONSTIPATION, (REFERRAL NOTE RECEIVED)[employer] Other Reason for visit Narrative* Rehabilitation - Outpatient (Routine) - Authorized Specialty Diagnoses / Procedures Referred By Atilio carbone Referred To Contact Physical Therapy Diagnoses S/P arthroscopy of left shoulder Procedures [place] OFFICE/OUTPATIENT NEW HIGH MDM 60 MINUTES Eliazar Brooks, DO [address] [place] [address] Phone: tel: fax: Aria Kumar PT Referral ID Status Reason Start Date Expiration Date Visits Requested Visits Authorized [id number] Authorized Specialty Services Required 04/10/2024 12 12 [facility] Healthcare Summary Purpose Family History No [...] Multiple sclerosis, relapsing-remitting (HCC) Procedures CONSULT TO CONSUMER PRODUCT ADVISOR OCCUPATIONAL THERAPY EVAL HIGH COMPLEX 60 MINS Jessica Clarke PA-C [address] [place] [address] [facility] [place] [address] [place] [address] Referral ID Status Reason Start Date Expiration Date Visits Requested Visits Authorized [id number] Pending Review Auto-Generat ed Referral 09/15/2021 09/15/2022 1 1 Specialty Diagnoses / Procedures Referred By Contac t Referred To Contact MR IMAGING Diagnoses Multiple sclerosis, relapsing-remitting (HCC) Procedures MRI BRAIN WO/W IVCON MRI BRAIN BRAIN STEM W/O W/CONTRAST MATERIAL Jessica Clarke PA-C [address] [place] [address] Mr Imaging Referral ID Status Reason Start Date Expiration Date Visits Requested Visits Authorized [id number] Pending Review Auto-Generat ed Referral 09/15/2021 10/15/2022 1 1 Referral ID Status Reason Start Date Expiration Date V isits Requested Visits Authorized [id number] Closed Auto-Generate d Referral 09/15/2021 11/25/2021 1 1 Specialty Diagnoses / Procedures Referred By Contac t Referred To Contact MR IMAGING Diagnoses Multiple sclerosis, relapsing-remitting (HCC) Procedures MRI BRAIN WO/W IVCON MRI BRAIN BRAIN STEM W/O W/CONTRAST MATERIAL Sarthak Escobar MD, PhD [address] [place] [address] Mr Imaging Referral ID Status Reason Start Date Expiration Date Visits Requested Visits Authorized [id number] Pending Review Auto-Generat ed Referral 11/14/2021 12/14/2022 1 1 Specialty Diagnoses / Procedures Referred By Contac t Referred To Contact MR IMAGING Diagnoses Multiple sclerosis, relapsing-remitting (HCC) Procedures MRI CERVICAL SPINE WO/W IVCON MRI SPINAL CANAL CERVICAL W/O & W/CONTR MATRL Jessica Clarke PA-C [address] [place] [address] Mr Imaging Referral ID Status Reason Start Date Expiration Date Visits Requested Visits Authorized [id number] Pending Review Auto-Generat ed Referral 08/30/2022 09/29/2023 1 1 Referral ID Status Reason Start Date Expiration Date Visits Requested Visits Authorized [id number] Pending Review Auto-Generat ed Referral 08/30/2022 09/29/2023 1 1 Specialty Diagnoses / Procedures Referred By Contac t Referred To Contact [facility] Diagnoses Cervical disc disorder with radiculopathy Procedures CONSULT TO PHYSICAL THERAPY PHYSICAL THERAPY EVALUATION HIGH COMPLEX [address] [place] [address] A[address]IYAH DOYLE [address] [place] [address] [facility] [place] [address] [place] [id number] Referral ID Status Reason Start Date Expiration Date Visits Requested Visits Authorized [id number] Pending Review Auto-Generat ed Referral 07/10/2023 07/09/2024 1 1 Specialty Diagnoses / Procedures Referred By Contac t Referred To Contact MR IMAGING Diagnoses Multiple sclerosis (HCC) Procedures MRI BRAIN WO/W IVCON MRI BRAIN BRAIN STEM W/O W/CONTRAST MATERIAL Jessica Clarke PA-C [address] [place] [id number] Mr Imaging [place] [address] Referral ID Status Reason Start Date Expiration Date Visits Requested Visits Authorized [id number] Pending Review Auto-Generat ed Referral 07/16/2023 08/14/2024 1 1 Specialty Diagnoses / Procedures Referred By Contac t Referred To Contact Diagnoses Cervical stenosis of spine Procedures CONSULT TO SPINE SURGERY OFFICE/OUTPATIENT [facility] MDM 60 MINUTES Jessica Clarke PA-C [address] [place] [address] Referral ID Status Reason Start Date Expiration Date Visits Requested Visits Authorized [id number] Authorized PCP Requested Referral 08/22/2023 08/21/2024 1 1 Specialty Diagnoses / Procedures Referred By Contac t Referred To Contact MR IMAGING Diagnoses Left arm weakness Procedures MRI CERVICAL SPINE WO IVCON MRI SPINAL CANAL CERVICAL W/O CONTRAST Lashaun Banda PA-C [address] [place] [id number] Mr Imaging [facility] Referral ID Status Reason Start Date Expiration Date Visits Requested Visits Authorized [id number] Pending Review Auto-Generat ed Referral 09/06/2023 10/05/2024 1 1 Specialty Diagnoses / Procedures Referred By Contac t Referred To Contact [facility] Diagnoses Left arm weakness Procedures EMG(NEURO/NI) NERVE CONDUCTION STUDIES 9-10 STUDIES Lashaun Vasquez PA-C [address] [place] [address] [facility] [place] [address] [place] [address] Referral ID Status Reason Start Date Expiration Date Visits Requested Visits Authorized [id number] Pending Review Auto-Generat ed Referral 09/06/2023 09/05/2024 1 1 Specialty Diagnoses / Procedures Referred By Contac t Referred To Contact XR IMAGING Diagnoses Left arm weakness Procedures XR CERV OTHER 4V AP/LAT/FLX/EXT RADEX SPINE CERVICAL 4 OR 5 VIEWS Lashaun Vasquez PA-C [address] [place] [address] Xr Imaging [place] [address] Referral ID Status Reason Start Date Expiration Date Visits Requested Visits Authorized [id number] Pending Review Auto-Generat ed Referral 09/06/2023 10/05/2024 1 1 Specialty Diagnoses / Procedures Referred By Contac t Referred To Contact Physical Therapy Diagnoses S/P arthroscopy of left shoulder Procedures [place] OFFICE/OUTPATIENT NEW HIGH MDM 60 MINUTES Eliazar Brooks, DO [address] [place] [address] Aria Kumar PT Referral ID Status Reason Start Date Expiration Date Visits Requested Visits Authorized [id number] Pending Review Specialty Services Required 02/25/2024 08/23/2024 [...] content) DATE CREATED AUTHOR 11/12/2017 [facility] DATE CREATED AUTHOR AUTHOR'S ORGANIZ ATION 11/13/2017 [facility] DATE CREATED AUTHOR AUTHOR'S ORGANIZ ATION 10/02/2022 [facility] DATE CREATED AUTHOR AUTHOR'S ORGANIZ ATION 12/21/2023 [facility] DATE CREATED AUTHOR AUTHOR'S ORGANIZ ATION 02/07/2024 [facility] DATE CREATED AUTHOR AUTHOR'S ORGANIZ ATION 08/19/2024 [facility] DATE CREATED AUTHOR AUTHOR'S ORGANIZ ATION 08/26/2024 [facility] DATE CREATED AUTHOR AUTHOR'S ORGANIZ ATION 09/03/2024 [facility] DATE CREATED AUTHOR AUTHOR'S ORGANIZ ATION 09/21/2024 [facility] DATE CREATED AUTHOR AUTHOR'S ORGANIZ ATION 09/24/2024 [facility] DATE CREATED AUTHOR AUTHOR'S ORGANIZ ATION 09/24/2024 [facility] DATE CREATED AUTHOR AUTHOR'S ORGANIZ ATION 10/15/2024 [facility] DATE CREATED AUTHOR AUTHOR'S ORGANIZ ATION 10/16/2024 [facility] Medical History (unrecognize d section and content) Includes: Medical History in patient's chartNo Medical History Recorded Evaluations & Outcomes (unre cognized section and content) Includes: Evaluations & Outcomes for active GoalsNo Outcomes Recorded Care Teams (unrecognized sec tion and content) Team Status: Inactive Member Role Status Dates Services [facility] Primary Care Provider Active Liyah Rosa MD Attending Provider Active Team Status: Active Member Role Status Dates Services [facility] Primary Care Provider Active Clothes Separator Relationship Specialty Start Date End Date Valdez Acosta MD [address] [place] [address] PCP - General Internal Medicine 11/01/20 Clothes Separator Relationship Specialty Start Date End Date Valdez Acosta MD [address] [place] [address]15 PCP - General Internal Medicine 11/01/20 Clothes Separator Relationship Specialty Start Date End Date Valdez Acosta MD [address] [place] [address] 43927 PCP - General Internal Medicine 11/01/20 Clothes Separator Relationship Specialty Start Date End Date Valdez Acosta MD [address] [place] [address]10 PCP - General Internal Medicine 11/01/20 Clothes Separator Relationship Specialty Start Date End Date Valdez Acosta MD [address] [place] [address]70 PCP - General Internal Medicine 11/01/20 Clothes Separator Relationship Specialty Start Date End Date Valdez Acosta MD [address] [place] [address] PCP - General Internal Medicine 11/01/20 Clothes Separator Relationship Specialty Start Date End Date Valdez Acosta MD [address] [place] [address]778 PCP - General Internal Medicine 11/01/20 Clothes Separator Relationship Specialty Start Date End Date Valdez Acosta MD [address] [place] [address] 49892 PCP - General Internal Medicine 11/01/20 Clothes Separator Relationship Specialty Start Date End Date Valdez Acosta MD [address] [place] [address] 17470 PCP - General Internal Medicine 11/01/20 Clothes Separator Relationship Specialty Start Date End Date Valdez Acosta MD [address] [place] [address] 51867 PCP - General Internal Medicine 11/01/20 Clothes Separator Relationship Specialty Start Date End Date Valdez Acosta MD [address] [place] [address] 85284 PCP - General Internal Medicine 11/01/20 Clothes Separator Relationship Specialty Start Date End Date Valdez Acosta MD [address] [place] [address]957 PCP - General Internal Medicine 11/01/20 Clothes Separator Relationship Specialty Start Date End Date Valdez Acosta MD [address] [place] [address] PCP - General Internal Medicine 11/01/20 Clothes Separator Relationship Specialty Start Date End Date Valdez Acosta MD [address] [place] [address] PCP - General Internal Medicine 11/01/20 Clothes Separator Relationship Specialty Start Date End Date Maxim Lanza MD [address] [place] [address] PCP - General Family Medicine 04/22/23 Fred Gracia NP [address] [place] [address] Nurse Practitioner Family Medicine 05/20/22 Clothes Separator Relationship Specialty Start Date End Date Maxim Lanza MD [address] [place] [address] PCP - General Family Medicine 04/22/23 Fred Gracia NP [address] [place] [address] Nurse Practitioner Family Medicine 05/20/22 Clothes Separator Relationship Specialty Start Date End Date Valdez Acosta MD [address] [facility] [place] [address] PCP - General Internal Medicine 11/01/20 Clothes Separator Relationship Specialty Start Date End Date Valdez Acosta MD [address] [place] [address] PCP - General Internal Medicine 11/01/20 Clothes Separator Relationship Specialty Start Date End Date Valdez Acosta MD [address] [place] [address] PCP - General Internal Medicine 11/01/20 Clothes Separator Relationship Specialty Start Date End Date Valdez Acosta MD [address] [place] [address]267 PCP - General Internal Medicine 11/01/20 Clothes Separator Relationship Specialty Start Date End Date Valdez Acosta MD [address] [place] [address] PCP - General Internal Medicine 11/01/20 Clothes Separator Relationship Specialty Start Date End Date Valdez Acosta MD [address] [place] [address] PCP - General Internal Medicine 11/01/20 Clothes Separator Relationship Specialty Start Date End Date Valdez Acosta MD [address] [place] [address] PCP - General Internal Medicine 11/01/20 Clothes Separator Relationship Specialty Start Date End Date Maxim Lanza MD [address] [place] [address] PCP - General Family Medicine 07/15/23 Fred Gracia NP [address] [place] [address] Primary Care Provider Family Medicine 05/20/22 Clothes Separator Relationship Specialty Start Date End Date Maxim Lanza MD [address] [place] [address] PCP - General Family Medicine 07/15/23 Fred Gracia NP [address] [place] [address] Primary Care Provider Family Medicine 05/20/22 Clothes Separator Relationship Specialty Start Date End Date Maxim Lanza MD [address] [place] [address] PCP - General Family Medicine 07/15/23 Fred Gracia NP [address] [place] [address] Primary Care Provider Family Medicine 05/20/22 Clothes Separator Relationship Specialty Start Date End Date Maxim Lanza MD [address] [place] [address] PCP - General Family Medicine 07/15/23 Fred Gracia NP [address] [place] [address] Primary Care Provider Family Medicine 05/20/22 Clothes Separator Relationship Specialty Start Date End Date Maxim Lanza MD [address] [place] [address] PCP - General Family Medicine 07/15/23 Fred Gracia NP [address] [place] [address] Primary Care Provider Family Medicine 05/20/22 Clothes Separator Relationship Specialty Start Date End Date Maxim Lanza MD [address] [place] [address] PCP - General Family Medicine 07/15/23 Fred Gracia NP [address] [place] [address] Primary Care Provider Family Medicine 05/20/22 Clothes Separator Relationship Specialty Start Date End Date Maxim Lanza MD [address] [place] [address] PCP - General Family Medicine 07/15/23 Fred Gracia NP [address] [place] [address] Primary Care Provider Family Medicine 05/20/22 Clothes Separator Relationship Specialty Start Date End Date Maxim Lanza MD [address] [place] [address] PCP - General Family Medicine 07/15/23 Fred Gracia NP [address] [place] [address] Primary Care Provider Family Medicine 05/20/22 Clothes Separator Relationship Specialty Start Date End Date Maxim Lanza MD [address] [place] [address] PCP - General Family Medicine 07/15/23 Fred Gracia NP [address] [place] [address] Primary Care Provider Family Medicine 05/20/22 Clothes Separator Relationship Specialty Start Date End Date Maxim Lanza MD [address] [place] [address] PCP - General Family Medicine 07/15/23 Fred Gracia NP [address] [place] [address] Primary Care Provider Family Medicine 05/20/22 Clothes Separator Relationship Specialty Start Date End Date Maxim Lanza MD [address] [place] [address] PCP - General Family Medicine 07/15/23 Fred Gracia NP [address] [place] [address] Primary Care Provider Family Medicine 05/20/22 Clothes Separator Relationship Specialty Start Date End Date Maxim Lanza MD [address] [place] [address] PCP - General Family Medicine 07/15/23 Fred Gracia NP [address] [place] [address] Primary Care Provider Family Medicine 05/20/22 Clothes Separator Relationship Specialty Start Date End Date Maxim Lanza MD [address] [place] [address] PCP - General Family Medicine 07/15/23 Fred Gracia NP [address] [place] [address] Primary Care Provider Family Medicine 05/20/22 Clothes Separator Relationship Specialty Start Date End Date Maxim Lanza MD [address] [place] [address] PCP - General Family Medicine 07/15/23 Fred Gracia NP [address] [place] [address] Primary Care Provider Family Medicine 05/20/22 Clothes Separator Relationship Specialty Start Date End Date Maxim Lanza MD [address] [place] [address] PCP - General Family Medicine 07/15/23 Fred Gracia NP [address] [place] [address] Primary Care Provider Family Medicine 05/20/22 Clothes Separator Relationship Specialty Start Date End Date Maxim Lanza MD [address] [place] [address] PCP - General Family Medicine 07/15/23 Fred Gracia NP [address] [place] [address] Primary Care Provider Family Medicine 05/20/22 Clothes Separator Relationship Specialty Start Date End Date Maxim Lanza MD [address] [place] [address] PCP - General Family Medicine 07/15/23 Fred Gracia NP [address] [place] [address] Primary Care Provider Family Medicine 05/20/22 Clothes Separator Relationship Specialty Start Date End Date Maxim Lanza MD [address] [place] [address] PCP - General Family Medicine 07/15/23 Fred Gracia NP [address] [place] [address] Primary Care Provider Family Medicine 05/20/22 Clothes Separator Relationship Specialty Start Date End Date Maxim Lanza MD [address] [place] [address] PCP - General Family Medicine 07/15/23 Fred Gracia NP [address] [place] [address] Primary Care Provider Family Medicine 05/20/22 Clothes Separator Relationship Specialty Start Date End Date Valdez Acosta MD [address] [place] [address] PCP - General Internal Medicine 11/01/20 Sherrie Smith PA-C [address] [place] [address] [id number] Electronic Typesetting Machine Operator Internal Medicine 04/26/24 Elizabeth Lopez APRN.[facility] [address] [place] [address] Electronic Typesetting Machine Operator Family Medicine 04/26/24 Clothes Separator Relationship Specialty Start Date End Date Maxim Lanza MD [address] [place] [address] PCP - General Family Medicine 07/15/23 Fred Gracia NP [address] [place] [address] Primary Care Provider Family Medicine 05/20/22 Clothes Separator Relationship Specialty Start Date End Date Maxim Lanza MD [address] [place] [address] PCP - General Family Medicine 07/15/23 Fred Gracia NP [address] [place] [address] Primary Care Provider Family Medicine 05/20/22 Clothes Separator Relationship Specialty Start Date End Date Maxim Lanza MD [address] [place] [address] PCP - General Family Medicine 07/15/23 Fred Gracia NP [address] [place] [address] Primary Care Provider Family Medicine 05/20/22 Clothes Separator Relationship Specialty Start Date End Date Maxim Lanza MD [address] [place] [address] PCP - General Family Medicine 07/15/23 Fred Gracia NP [address] [place] [address] Primary Care Provider Family Medicine 05/20/22 Clothes Separator Relationship Specialty Start Date End Date Maxim Lanza MD [address] [place] [address] PCP - General Family Medicine 07/15/23 Fred Gracia NP [address] [place] [address] Primary Care Provider Family Medicine 05/20/22 Clothes Separator Relationship Specialty Start Date End Date Maxim Lanza MD [address] [place] [address] PCP - General Family Medicine 07/15/23 Fred Gracia NP [address] [place] [address] Primary Care Provider Family Medicine 05/20/22 Clothes Separator Relationship Specialty Start Date End Date Maxim Lanza MD [address] [place] [address] PCP - General Family Medicine 07/15/23 Fred Gracia NP [address] [place] [address] Primary Care Provider Family Medicine 05/20/22 Clothes Separator Relationship Specialty Start Date End Date Maxim Lanza MD [address] [place] [address] PCP - General Family Medicine 07/15/23 Fred Gracia NP [address] [place] [address] Primary Care Provider Family Medicine 05/20/22 Clothes Separator Relationship Specialty Start Date End Date Maxim Lanza MD [address] [place] [address] PCP - General Family Medicine 07/15/23 Fred Gracia NP [address] [place] [address] Primary Care Provider Family Medicine 05/20/22 Clothes Separator Relationship Specialty Start Date End Date Maxim Lanza MD [address] [place] [address] PCP - General Family Medicine 07/15/23 Fred Gracia NP [address] [place] [address] Primary Care Provider Family Medicine 05/20/22 Clothes Separator Relationship Specialty Start Date End Date Maxim Lanza MD [address] [place] [address] PCP - General Family Medicine 07/15/23 Fred Gracia NP [address] [place] [address] Primary Care Provider Family Medicine 05/20/22 Team Status: Inactive Member Role Status Dates Tripp Gruber MD Attending Provider Active St art: August 22, 2024 End: August 22, 2024 Clothes Separator Relationship Specialty Start Date End Date Maxim Lanza MD [address] [place] [address] PCP - General Family Medicine 07/15/23 Fred Gracia NP [address] [place] [address] Primary Care Provider Family Medicine 05/20/22 Clothes Separator Relationship Specialty Start Date End Date Fred Gracia APRN-FINANCIAL INSTITUTION MANAGER [address] [place] [address] PCP - General Nurse Practitioner 08/28/24 Clothes Separator Relationship Specialty Start Date End Date Maxim Lanza MD [address] [place] [address] PCP - General Family Medicine 07/15/23 Fred Gracia NP [address] [place] [address] Primary Care Provider Family Medicine 05/20/22 Clothes Separator Relationship Specialty Start Date End Date Fred Gracia APRN-FINANCIAL INSTITUTION MANAGER PCP - General Nurse Practitioner 08/28/24 Clothes Separator Relationship Specialty Start Date End Date Fred Gracia APRN-FINANCIAL INSTITUTION MANAGER PCP - General Nurse Practitioner 08/28/24 Goals [...] or prosecute any alcohol or drug abuse patient.[facility] HospitalIn the event this information is protected by the Federal Confidentiality of Alcohol and Drug Abuse Patient Records regulations: The Federal rules restrict any use of the information to criminally investigate or prosecute any alcohol or drug abuse patient.[facility] HospitalIn the event this information is protected by the Federal Confidentiality of Alcohol and Drug Abuse Patient Records regulations: The Federal rules restrict any use of the information to criminally investigate or prosecute any alcohol or drug abuse patient.[facility] HospitalIn the event this information is protected by the Federal Confidentiality of Alcohol and Drug Abuse Patient Records regulations: The Federal rules restrict any use of the information to criminally investigate or prosecute any alcohol or drug abuse patient.[facility] HospitalIn the event this information is protected by the Federal Confidentiality of Alcohol and Drug Abuse Patient Records regulations: The Federal rules restrict any use of the information to criminally investigate or prosecute any alcohol or drug abuse patient.[facility] HospitalIn the event this information is protected by the Federal Confidentiality of Alcohol and Drug Abuse Patient Records regulations: The Federal rules restrict any use of the information to criminally investigate or prosecute any alcohol or drug abuse patient.[facility] HospitalIn the event this information is protected by the Federal Confidentiality of Alcohol and Drug Abuse Patient Records regulations: The Federal rules restrict any use of the information to criminally investigate or prosecute any alcohol or drug abuse patient.[facility] HospitalIn the event this information is protected by the Federal Confidentiality of Alcohol and Drug Abuse Patient Records regulations: The Federal rules restrict any use of the information to criminally investigate or prosecute any alcohol or drug abuse patient.[facility] HospitalIn the event this information is protected by the Federal Confidentiality of Alcohol and Drug Abuse Patient Records regulations: The Federal rules restrict any use of the information to criminally investigate or prosecute any alcohol or drug abuse patient.[facility] HospitalIn the event this information is protected by the Federal Confidentiality of Alcohol and Drug Abuse Patient Records regulations: The Federal rules restrict any use of the information to criminally investigate or prosecute any alcohol or drug abuse patient.[facility] HospitalIn the event this information is protected by the Federal Confidentiality of Alcohol and Drug Abuse Patient Records regulations: The Federal rules restrict any use of the information to criminally investigate or prosecute any alcohol or drug abuse patient.[facility] HospitalIn the event this information is protected by the Federal Confidentiality of Alcohol and Drug Abuse Patient Records regulations: The Federal rules restrict any use of the information to criminally investigate or prosecute any alcohol or drug abuse patient.[facility] HospitalIn the event this information is protected by the Federal Confidentiality of Alcohol and Drug Abuse Patient Records regulations: The Federal rules restrict any use of the information to criminally investigate or prosecute any alcohol or drug abuse patient.[facility] HospitalIn the event this information is protected by the Federal Confidentiality of Alcohol and Drug Abuse Patient Records regulations: The Federal rules restrict any use of the information to criminally investigate or prosecute any alcohol or drug abuse patient.[facility] HospitalIn the event this information is protected by the Federal Confidentiality of Alcohol and Drug Abuse Patient Records regulations: The Federal rules restrict any use of the information to criminally investigate or prosecute any alcohol or drug abuse patient.[facility] HospitalIn the event this information is protected by the Federal Confidentiality of Alcohol and Drug Abuse Patient Records regulations: The Federal rules restrict any use of the information to criminally investigate or prosecute any alcohol or drug abuse patient.[facility] HospitalIn the event this information is protected by the Federal Confidentiality of Alcohol and Drug Abuse Patient Records regulations: The Federal rules restrict any use of the information to criminally investigate or prosecute any alcohol or drug abuse patient.[facility] HospitalIn the event this information is protected by the Federal Confidentiality of Alcohol and Drug Abuse Patient Records regulations: The Federal rules restrict any use of the information to criminally investigate or prosecute any alcohol or drug abuse patient.[facility] HospitalIn the event this information is protected by the Federal Confidentiality of Alcohol and Drug Abuse Patient Records regulations: The Federal rules restrict any use of the information to criminally investigate or prosecute any alcohol or drug abuse patient.[facility] HospitalIn the event this information is protected by the Federal Confidentiality of Alcohol and Drug Abuse Patient Records regulations: The Federal rules restrict any use of the information to criminally investigate or prosecute any alcohol or drug abuse patient.[facility] HospitalIn the event this information is protected by the Federal Confidentiality of Alcohol and Drug Abuse Patient Records regulations: The Federal rules restrict any use of the information to criminally investigate or prosecute any alcohol or drug abuse patient.[facility] HospitalIn the event this information is protected by the Federal Confidentiality of Alcohol and Drug Abuse Patient Records regulations: The Federal rules restrict any use of the information to criminally investigate or prosecute any alcohol or drug abuse patient.[facility] HospitalIn the event this information is protected by the Federal Confidentiality of Alcohol and Drug Abuse Patient Records regulations: The Federal rules restrict any use of the information to criminally investigate or prosecute any alcohol or drug abuse patient.[facility] HospitalIn the event this information is protected by the Federal Confidentiality of Alcohol and Drug Abuse Patient Records regulations: The Federal rules restrict any use of the information to criminally investigate or prosecute any alcohol or drug abuse patient.[facility] HospitalIn the event this information is protected by the Federal Confidentiality of Alcohol and Drug Abuse Patient Records regulations: The Federal rules restrict any use of the information to criminally investigate or prosecute any alcohol or drug abuse patient.[facility] HospitalIn the event this information is protected by the Federal Confidentiality of Alcohol and Drug Abuse Patient Records regulations: The Federal rules restrict any use of the information to criminally investigate or prosecute any alcohol or drug abuse patient.[facility] HospitalIn the event this information is protected by the Federal Confidentiality of Alcohol and Drug Abuse Patient Records regulations: The Federal rules restrict any use of the information to criminally investigate or prosecute any alcohol or drug abuse patient.[facility] HospitalIn the event this information is protected by the Federal Confidentiality of Alcohol and Drug Abuse Patient Records regulations: The Federal rules restrict any use of the information to criminally investigate or prosecute any alcohol or drug abuse patient.[facility] HospitalIn the event this information is protected by the Federal Confidentiality of Alcohol and Drug Abuse Patient Records regulations: The Federal rules restrict any use of the information to criminally investigate or prosecute any alcohol or drug abuse patient.[facility] Reason for Visit (unrecogniz ed section and content) Reason Comments IV Medication Administration Ocrevus Specialty Diagnoses / Procedures Referred By Atilio carbone Referred To Contact Diagnoses Multiple sclerosis (HCC) G35 (ICD-10-CM) - Multiple sclerosis (HCC) Procedures INJECTION, OCRELIZUMAB, 1 MG J2350 - INJECTION, OCRELIZUMAB, 1 MG Sarthak Escobar MD, PhD [address] [place] [address] [facility] [address] [place] [address] Referral ID Status Reason Start Date Expiration Date V isits Requested Visits Authorized [id number] Pending Review 12/06/2020 03/22/2023 4 4 Reason Comments Established Patient Follow-Up Reason Comments Infusion Ocre[facility]us Referral ID Status Reason Start Date Expiration Date V isits Requested Visits Authorized [id number] Pending Review 12/06/2020 03/01/2022 2 2 Specialty Diagnoses / Procedures Referred By Contac t Referred To Contact MR IMAGING Diagnoses Multiple sclerosis, relapsing-remitting (HCC) Procedures MRI BRAIN WO/W IVCON MRI BRAIN BRAIN STEM W/O W/CONTRAST MATERIAL Jessica Clarke PA-C [address] [place] [address] Mr Imaging Referral ID Status Reason Start Date Expiration Date V isits Requested Visits Authorized [id number] Closed Auto-Generate d Referral 09/15/2021 11/25/2021 1 1 Reason Comments Established Patient Follow-Up Reason Comments [facility] Specialty Diagnoses / Procedures Referred By Contac t Referred To Contact [facility] Diagnoses Multiple sclerosis, relapsing-remitting (HCC) Procedures CONSULT TO CONSUMER PRODUCT ADVISOR OCCUPATIONAL THERAPY EVAL HIGH COMPLEX 60 MINS Jessica Clarke PA-C [address] [place] [address] [facility] [place] [address] Referral ID Status Reason Start Date Expiration Date V isits Requested Visits Authorized [id number] Closed Auto-Generate d Referral 09/15/2021 05/19/2022 1 1 Reason Comments Appointment Called pt LVM to see about setting up pt and psycology. Reason Comments Established Patient Follow-Up Reason Comments Patient Update Reason Comments URI Reason Comments Consult Cervical pain Specialty Diagnoses / Procedures Referred By Contac t Referred To Contact [facility] [place] Diagnoses Cervical stenosis of spine Procedures [facility]SULT TO [facility] OFFICE/OUTPATIENT NEW HIGH MDM 60 MINUTES Jessica Clarke PA-C [address] [place] [address] Referral ID Status Reason Start Date Expiration Date V isits Requested Visits Authorized [id number] Closed PCP Requested Referral 06/13/2023 06/12/2024 1 1 Reason Comments Orders Order for MRI needed for Brain and Cervical Reason Comments Patient Question Reason Comments Established Patient Reason Comments Orders Reason Comments Post-op PO Lt shoulder scope prob RCR TSCNCO 02/10/24 Specialty Diagnoses / Procedures Referred By Atilio t Referred To Contact Physical Therapy Diagnoses S/P arthroscopy of left shoulder Procedures [place] OFFICE/OUTPATIENT NEW HIGH MDM 60 MINUTES Eliazar Brooks, DO [address] [place] [address] Aria Kumar PT Referral ID Status Reason Start Date Expiration Date Visits Requested Visits Authorized [id number] Pending Review Specialty Services Required 02/25/2024 08/23/2024 [...] altered mental status type Xena Larios MD [address], [facility] [address] [place] [address] Phone: tel: fax: Referral ID Status Reason Start Date Expiration Date Visits Re quested Visits Authorized [id number] 1 1 Reason Onset Date Comments incision [...] 0300, For Sodium level 160 mmol/L or gjfyueu=905 mL/hr; 155 to 159 mmol/L=125 mL/hr; 150-154 [...] BE BASED ON THE PRIMARY CLINICAL RECORDS. [facility]. provides no warranty or guarantee of the accuracy or completeness of information in this document.
--- NOTE | 2024-10-17 08:09 | PC.NURSE ---
admitted to stepdown. pt alert and oriented, unsure of month. pleasant, flat affect. pt poor historian, unsure of history and unable to answer admission questions. information obtained from [facility] records. R temporal head incision well approximated, no drainage. abd with several bruises. call light within reach, bed alarm on.
--- NOTE | 2024-10-17 09:16 | P.HP_ITS ---
HPI H&P: HPI History of Present Illness Chief complaint: SHORT OF BREATH CHF RESP FAILURE Narrative: Information difficult to obtain, patient was confused this morning so not sure how reliable her story is but she states that she has had increasing swelling in her lower extremities and shortness of breath over the last 2 weeks to her knowledge that no medications were adjusted, patient had increasing difficulty last night and both so presented to the emergency room found to have acute combined congestive heart failure with acute hypoxia requiring BiPAP ventilation When I saw patient up in the medical surgical floor, resting fairly comfortably in bed mild to moderate respiratory distress with conversation, has been able to be weaned down to 3 L nasal cannula though, patient denies history of heart failure heart trouble at all in the past, she states she has not had significant edema in the past as well. No other prodromal symptoms, denies URI symptoms denies UTI symptoms, denies chest pain Opioid HPI Opioid Management Most Recent Pain and Opioid Data: Last Pain Scale 8 08/24/24, 08:59 Last Pain Assessment Today, 08:00 Last ORT Total Score 0 Today, 07:39 Last ORT Risk Category Low Risk Today, 07:39 Review of Systems ROS Status of ROS 10 or more systems reviewed and unremark able except as noted in history and below [facility] Medical History (Updated 10/17/24 @ 10:25 by Alonzo Holguin MD) Bladder dysfunction ?N31.9 - Neuromuscular dysfunction of bladder, unspecified (ICD-10) Weakness ?R53.1 - Weakness (ICD-10) Dysphagia ?R13.10 - Dysphagia, unspecified (ICD-10) Rhabdomyolysis ?M62.82 - Rhabdomyolysis (ICD-10) Muscle weakness ?M62.81 - Muscle weakness (generalized) (ICD-10) Depression ?F32.A - Depression, unspecified (ICD-10) Sleep apnea ?G47.30 - Sleep apnea, unspecified (ICD-10) Insomnia ?G47.00 - Insomnia, unspecified (ICD-10) Anxiety ?F41.9 - Anxiety disorder, unspecified (ICD-10) Panic disorder ?F41.0 - Panic disorder [episodic paroxysmal anxiety] (ICD-10) Hyperlipemia ?E78.5 - Hyperlipidemia, unspecified (ICD-10) Hypertension ?I10 - Essential (primary) hypertension (ICD-10) Nutritional deficiency ?E63.9 - Nutritional deficiency, unspecified (ICD-10) Bipolar 1 disorder ?F31.9 - Bipolar disorder, unspecified (ICD-10) Pressure injury of sacral region, stage 2 ?L89.152 - Pressure ulcer of sacral region, stage 2 (ICD-10) Obesity ?E66.9 - Obesity, unspecified (ICD-10) Multiple sclerosis ?G35 - Multiple sclerosis (ICD-10) Surgical History (Updated 10/17/24 @ 08:14 by Aliza Jung) History of craniotomy ?Z98.890 - Other specified postprocedural states (ICD-10) Social History Highest level of school completed/degree received: don't know Little interest or pleasure in doing things: not at all Feeling down, depressed, or hopeless: not at all Meds Home Medications and Allergies Home Medications ?Medication ?Instructions ?Recorded ?Confirmed ?Type acetaminophen 325 mg tablet 650 mg PO Q6H PRN pain 10/17/24 History (Tylenol) albuterol sulfate 2.5 mg/3 mL 2.5 mg inhalation Q4H SC N 10/17/24 10/17/24 History (0.083 %) solution for nebulization shortness of breat h or wheezing levetiracetam 500 mg tablet 500 mg PO Q12H 10/17/24 History metoprolol tartrate 25 mg tablet 25 mg PO Q12H 5 10/17/24 History mirtazapine 15 mg disintegrating 15 mg PO HS 10/17/24 10/17/24 History tablet sennosides 8.6 mg-docusate sodium 2 tab-cap PO .QHS 10/17/24 History 50 mg tablet (Senna Plus) trazodone 50 mg tablet 25 mg PO HS 10/17/24 5 History Allergies Allergy/AdvReac Type Severity Reaction Status Date / Time No Known Drug Allergies Allergy Verified 10/17/24 02:15 Exam Constitutional Vital Signs, click to edit/add: Last Vital Signs Temp 97.9 F 10/17/24 08:00 Pulse 92 H 10/17/24 08:00 Resp 21 H 10/17/24 08:00 BP 128/73 10/17/24 08:03 Pulse Ox 94 L 10/17/24 08:00 O2 Del Method Nasal Cannula 10/17/24 09:05 O2 Flow Rate 3 10/17/24 08:24 FiO2 30 10/17/24 05:00 Documenting provider has reviewed patient's vital signs: yes Common normals: apparent distress (Mild to moderate conversational dyspnea) Chest Common normals: inspection of chest normal Respiratory Common normals: abnormal respiratory effort (Mild to moderate conversational dyspnea) and not clear to ascultation bilaterally Auscultation: rales and diminished lung sounds Cardio Common normals: regular rhythm; murmurs detected Rate: tachycardic Heart sounds: murmur GI Common normals: soft to palpation and non-tender; negative for Normal to inspection, nondistended, normoactive bowel sounds present (Morbid obesity) Extremity Common normals: abnormal to inspection (4+ edema) and clubbing, cyanosis or edema Results Labs Labs: Short CBC 10/17/24 Range/Units 02:50 WBC 8.6 (4.0-11.0) 10^3/uL Hgb 9.2 L (12.0-16.0) g/dL Hct 30.7 L (36.0-48.0) % Plt Count 166 (150-450) 10^3/uL BMP 10/17/24 02:50 Sodium 145 Potassium 4.3 Chloride 108 H Carbon Dioxide 30.2 BUN 9.0 Creatinine 0.81 Glucose 140 H Calcium 8.4 L Liver Function 10/17/24 Range/Units 02:50 Total Bilirubin 0.4 (0.2-1.0) mg/dL AST 20 (15-37) U/L ALT 35 (14-59) U/L Alkaline Phosphatase 108 (46-116) U/L Albumin 1.9 L (3.4-5.0) g/dL ABG ABG results: 10/17/24 10/17/24 03:10 07:04 ABG pH 7.352 ABG pCO2 46.7 H ABG pO2 76.2 L ABG HCO3 25.9 ABG O2 Saturation 95.2 ABG Base Excess 0.3 VBG pH 7.418 VBG pCO2 41.6 Assessment and Plan Assessment and Plan (1) Edema, peripheral: (2) Chronic obstructive pulmonary disease with (acute) exacerbation: (3) Acute combined systolic (congestive) and diastolic (congestive) heart failure: (4) Acute hypoxic respiratory failure: (5) Brain mass: (6) Urinary tract infection: Qualifiers: Hematuria presence: without hematuria Urinary tract infection type: acute cystitis Qualified Code(s): N30.00 - Acute cystitis without hematuria (7) Muscle weakness: (8) Depression: (9) Sleep apnea: (10) Anxiety: (11) Hyperlipemia: (12) Hypertension: (13) Multiple sclerosis: (14) Bipolar 1 disorder: (15) Morbid obesity: (16) Severe protein-calorie malnutrition: (17) Hypertensive urgency: (18) Respiratory acidosis: (19) Iron deficiency anemia: (20) Cardiac murmur: Plan Admission findings: Borderline fever, 99, sinus tachycardia, respiratory distress, uncontrolled hypertensive with hypertensive urgency leading to acute combined congestive heart failure and acute exacerbation of COPD with acute hypoxic respiratory failure requiring BiPAP ventilation Acute combined congestive heart failure leading to acute hypoxic respiratory failure requiring BiPAP ventilation with acute respiratory acidosis with compensatory metabolic alkalosis-repeat troponins 2 more times, repeat BNP in a.m., Bumex drip today, echocardiogram on Saturday Acute exacerbation of the COPD-no signs of infection with normal white blood cell count although she does have a left shift that may be consistent with a bacterial process, check sputum culture, aerosol treatments and IV steroids Hypertensive urgency-controlling Heart failure medications should improve the hypertensive urgency, blood pressure improved this morning Hyperglycemia in a nonfasting state-repeat in a.m. Severe protein calorie malnutrition with morbid obesity-diet supplements Sleep apnea-use home machine if available Iron deficiency anemia-check Hemoccult, her hemoglobin is down 2 to 3 g from her baseline Brain tumor-patient states has been benign, but that is why she is currently in rehab from surgical intervention History of urinary tract infections-check urinalysis History of multiple sclerosis-patient does not feel she is having a flare Bipolar disorder-maintain home medications History of hyperlipidemia but not currently on medications we will hold off for now Admission status: Patient presented to the emergency room with acute hypoxic respiratory failure requiring BiPAP ventilation secondary to acute combined congestive heart failure complicated by acute exacerbation of COPD, medically necessary treatment will span 2 midnights inpatient status in the stepdown unit
[2024-10-17 09:22] LABS: Basophils Percent Auto 0.2 % (0.2-2.0); Eosinophils Percent Auto 0.5 % (0.9-7.0); Hematocrit 32.1 % (36.0-48.0); Hemoglobin 9.5 g/dL (12.0-16.0); Immature Granulocytes Abs Auto 0.05 10^3/uL (0.00-0.03); Immature Granulocytes Pct Auto 0.8 % (0.0-0.5); Lymphocytes Absolute Auto 0.4 10^3/uL (1.2-3.8); Lymphocytes Percent Auto 6.6 % (20.5-60.0); Mean Corpuscular HGB Conc 29.6 g/dL (29.9-35.2); Mean Corpuscular Hemoglobin 28.3 pg (26.7-34.0); Mean Corpuscular Volume 95.5 fL (81.0-99.0); Mean Platelet Volume 10.8 fL (9.5-13.5); Monocytes Absolute Auto 0.1 10^3/uL (0.3-0.8); Monocytes Percent Auto 1.5 % (1.7-12.0); Neutrophils Absolute Auto 5.9 10^3/uL (1.4-6.5); Neutrophils Percent Auto 90.4 % (43.0-75.0); Platelet Count 152 10^3/uL (150-450); Red Blood Count 3.36 10^6/uL (4.20-5.40); Red Cell Distribution Width 19.2 % (11.0-15.0); White Blood Count 6.6 10^3/uL (4.0-11.0)
[2024-10-17 09:35] LABS: Influenza Virus A Antigen Negative; Influenza Virus B Antigen Negative; Internal Control Within Normal Limits; Respiratory Syncytial Virus Not Detected (NOT DETECTE); SARS-CoV-2 Ag NEGATIVE (NEGATIVE)
[2024-10-17] MEDS: ISOSORBIDE MONONITRATE 30 MG TAB.ER.24H PO (09:39)
[2024-10-17] MEDS: LISINOPRIL 5 MG TABLET PO (09:39)
[2024-10-17] MEDS: PROSTAT 15 GM PROTEIN/100 CAL 30 ML LIQUID PACKET PO ×2 (09:39→23:02)
[2024-10-17] MEDS: ENSURE HP 237 ML LIQUID PO ×2 (09:39→23:01)
[2024-10-17] MEDS: METOPROLOL TARTRATE 25 MG TABLET PO (09:40)
[2024-10-17] MEDS: LEVETIRACETAM 500 MG TABLET PO ×2 (09:40→23:03)
[2024-10-17 09:43] LABS: Troponin I High Sensitivity 29.4 pg/mL (4.0-51.3)
[2024-10-17 09:47] LABS: Thyroid Stimulating Hormone 1.513 uIU/mL (0.358-3.740)
[2024-10-17 09:49] LABS: Lactate/Lactic Acid 3.1 mmol/L (0.4-2.0)
[2024-10-17 10:00] LABS: Bilirubin Urine NEGATIVE (NEGATIVE); Blood Urine SMALL (NEGATIVE); Color Urine LT. YELLOW (YELLOW); Glucose Urine UA NEGATIVE (NEGATIVE); Ketones Urine NEGATIVE (NEGATIVE); Leukocyte Esterase Urine LARGE (NEGATIVE); Nitrite Urine NEGATIVE (NEGATIVE); Protein Urine NEGATIVE (NEG/TRACE); Specific Gravity Urine <=1.005 (1.005-1.025); Urobilinogen Urine 0.2 EU/dL (0.2-1.0)
[2024-10-17] MEDS: BUMETANIDE 10 MG in 0.9 % SODIUM CHLORIDE 160 ML 20 MG IV (10:02)
[2024-10-17] MEDS: METHYLPREDNISOLONE SOD SUCC PF 40 MG/ML VIAL 60 MG IVP ×2 (10:02→23:02)
[2024-10-17 10:09] LABS: Clarity Urine SLIGHTLY CLOUDY (CLEAR)
[2024-10-17 10:11] LABS: Amorphous Sediment Urine FEW; Bacteria Urine SMALL #/HPF (NONE SEEN); Crystals Seen? Seen #/HPF (None Seen); Mucus Urine NONE SEEN (NONE SEEN); Squamous Epithelial Cell Urine FEW #/LPF (NONE/RARE); Triple Phosphate Crystal Urine RARE; WBC Urine 20-50 #/HPF (NONE SEEN)
[2024-10-17 10:12] LABS: Cast Seen? NONE SEEN #/LPF (NONE SEEN); Urine Culture Indicated ALREADY ORDERED
[2024-10-17 12:27] LABS: Troponin I High Sensitivity 18.8 pg/mL (4.0-51.3)
[2024-10-17 13:09] LABS: Lactate/Lactic Acid 1.7 mmol/L (0.4-2.0)
[2024-10-17] MEDS: ACETAMINOPHEN 500 MG TABLET 1000 MG PO (18:34)
--- NOTE | 2024-10-17 19:42 | ECG_ITS ---
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 Measurements Intervals [place] Rate: 116 P: 78 HI: 150 QRS: 69 QRSD: 80 T: 39 QT: 324 QTc: 393 Interpretive Statements 1120 Sinus tachycardia 1470 with occasional supraventricular premature complexes [address] depression 9150 abnormal ECG Compared to ECG 10/17/2024 02:16:49 ST (T wave) deviation now present Electronically Signed On 10-18-2024 7:14:57 EDT by ARTURO MOY M.D.
[2024-10-17 20:38] LABS: Troponin I High Sensitivity 25.3 pg/mL (4.0-51.3)
[2024-10-17] MEDS: NOREPINEPHRINE BITARTRATE/D5W 4 MG/250 ML PREMIX 30 MG IV (21:48)
[2024-10-17] MEDS: SENNOSIDES/DOCUSATE SODIUM 1 TAB TABLET 2 TAB PO (23:03)
[2024-10-17] MEDS: MIRTAZAPINE 15 MG TABLET PO (23:03)
[2024-10-18] VITALS (181 sets, daily range): BP systolic 82–131; BP diastolic 54–86; PULSE 69–133; TEMP 36.5; O2SAT 82–98
--- NOTE | 2024-10-18 01:02 | PC.NURSE ---
1922 Patient BP 79/51. Assessment completed and vitals obtained HR 116, O2 93% on 1LNC RR 26, Temp 98.8. Patient states she is having chest pain and it is difficult to breathe. Pain 9/10. Hospitalist notified. Tony bryant completed 1934 Hospitalist orders ECG and troponin lab draw. 1941 Patient stated her IV in her had was hurting. Unable to flush and discontinued. Leads Changed, ECG obtained. Blood draw completed and sent to lab. IV start attempted in the right AC, unsuccessful. 2000 ECG sent to hospitalist. BP 81/54, Hospitalist notified. 2037 BP 76/41, reached out to hospitalist about medications for the patient. Concerned about medications lowering patients BP. Instructed to hold trazadone and metoprolol and give remaining medications. Patients chest pain remains 9/10 and is increased upon palpation on the chest. Hospitalist notified of assessment, Instructed to monitor BP and report changes. 2048 Hospitalist notified of BP 81/43. Hospitalist placed order for levophed to have on hand but not to start yet. 2051 [facility] contacted to adjust Levophed order to be pulled from pyxis and scanned to patient. 2054 Multiple IV start attempts unsuccessful. 2101 BP 76/53, Troponin lab is 25.3. Hospitalist notified. Instructed to start the levophed and titrate per protocol. 2138 IV access obtained in the Left AC. 2147 Levophed started at 8mcg. BP 85/40, HR 114, RR 22, O2 91% on 1L via NC. 2225 BP 88/50, Levophed increased to 10mcg. 2237 BP 63/48, HR 110, RR 22, O2 92% on 1L via NC. Patient states the pain has decreased to 2/10. Levophed increased to 12mcg. Hospitalist notified. 2300 Patient is sleeping, O2 sat is dropping to 85% while asleep. Asked patient if she has sleep apnea or wears a CPAP. Patient denies both but states that her chest pain is gone. O2 increased to 2L via NC. O2 sat increased to 92% while resting and asleep. 2352 Patient sleeping. BP 84/47, Levophed increased to 14mcg. 0000 BP is 101/59 and maintaining a MAP of 65 or greater. Assessment completed at this time. Patient boosted in bed and repositioned. Water provided. 0101 BP 97/64, HR 104, RR 20, O2 92% on 2L via NC. Hospitalist notified.
[2024-10-18] MEDS: METHYLPREDNISOLONE SOD SUCC PF 40 MG/ML VIAL 60 MG IVP (03:30)
[2024-10-18 07:05] LABS: Anion Gap 12.2; BUN Creatinine Ratio 25.3; Calcium 8.2 mg/dL (8.5-10.1); Carbon Dioxide 31.6 mmol/L (21.0-32.0); Chloride 105 mmol/L (98-107); Estimated GFR (African America >60 (>=60 mL/min/1.73m^2); Estimated GFR (Non-African Ame >60 (>=60 mL/min/1.73m^2); Glucose 203 mg/dL (74-106); Potassium 3.8 mmol/L (3.5-5.1); Sodium 145 mmol/L (136-145)
[2024-10-18 07:07] LABS: Troponin I High Sensitivity 1650.4 pg/mL (4.0-51.3)
[2024-10-18] MEDS: NOREPINEPHRINE BITARTRATE/D5W 4 MG/250 ML PREMIX 52.5 MG IV (07:30)
--- NOTE | 2024-10-18 07:31 | ECG_ITS ---
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 Measurements Intervals [place] Rate: 92 P: 79 DC: 180 QRS: 62 QRSD: 78 T: 36 QT: 352 QTc: 402 Interpretive Statements 1100 Sinus rhythm 9110 normal ECG Compared to ECG 10/17/2024 19:42:58 Sinus tachycardia no longer present ST (T wave) deviation no longer present Electronically Signed On 10-18-2024 23:54:38 EDT by ARTURO MOY M.D.
[2024-10-18 07:50] LABS: INR 1.01; Partial Thromboplastin Time 24.8 sec (22.3-36.2); Prothrombin Time 10.7 sec (9.0-11.6)
[2024-10-18] MEDS: HEPARIN SODIUM (PORCINE) 5,000 UNIT/ML VIAL 4000 UNIT IV (07:50)
[2024-10-18] MEDS: HEPARIN SODIUM,PORCINE/D5W 25,000 UNIT/500 ML IV.SOLN 20 UNIT IV (07:52)
[2024-10-18 08:06] LABS: PO2 ABG 67.3 mmHg (80.0-100.0); pH ABG 7.409 (7.350-7.450)
[2024-10-18 08:07] LABS: Allen Test POSITIVE (POSITIVE); Base Excess ABG 8.1 mmol/L (-2.0-2.0); HCO3 ABG 32.7 mmol/L (22.0-26.0); Liters per Minute 2; O2 Mode NC; Oxygen Saturation ABG 94.5 %; Puncture Site LR
[2024-10-18 08:08] LABS: ABG PCO2 51.8 mmHg (35.0-45.0)
[2024-10-18] MEDS: ENSURE HP 237 ML LIQUID PO ×2 (08:30→20:12)
[2024-10-18] MEDS: LEVETIRACETAM 500 MG TABLET PO ×2 (08:30→20:12)
[2024-10-18] MEDS: PROSTAT 15 GM PROTEIN/100 CAL 30 ML LIQUID PACKET PO ×2 (08:30→20:11)
--- NOTE | 2024-10-18 08:39 | PC.NURSE ---
dr deutsch updated on pts condition, received order to stop heparin drip until he speaks to cardiology.
[2024-10-18] MEDS: LEVOFLOXACIN IN DEXTROSE 5 % 750 MG/150 ML PREMIX 100 MG IV (08:42)
--- NOTE | 2024-10-18 10:02 | P.PN_ITS ---
Progress Note: Subjective Subjective Interval history: She definitely looks better than yesterday, difficult night overnight with severe hypotension requiring being placed on Levophed Exam Constitutional Vital Signs, click to edit/add: Last Vital Signs Temp 97.7 F 10/18/24 02:01 Pulse 117 H 10/18/24 09:55 Resp 23 H 10/18/24 09:10 BP 100/73 10/18/24 09:01 Pulse Ox 92 L 10/18/24 09:10 O2 Del Method Nasal Cannula 10/18/24 05:18 O2 Flow Rate 2 10/18/24 05:18 FiO2 30 10/17/24 05:00 Documenting provider has reviewed patient's vital signs: yes Common normals: apparent distress (Minimal conversational dyspnea-improved) Chest Common normals: inspection of chest normal Respiratory Common normals: abnormal respiratory effort (Mild to moderate conversational dyspnea) and not clear to ascultation bilaterally Auscultation: rales (Basis) and diminished lung sounds Cardio Common normals: regular rate and regular rhythm; murmurs detected Heart sounds: murmur GI Common normals: soft to palpation and non-tender; negative for Normal to inspection, nondistended, normoactive bowel sounds present (Morbid obesity) Extremity Common normals: abnormal to inspection (3+ edema) and clubbing, cyanosis or edema Progress Note: Objective Labs Labs: Short CBC 10/17/24 Range/Units 09:13 WBC 6.6 (4.0-11.0) 10^3/uL Hgb 9.5 L (12.0-16.0) g/dL Hct 32.1 L (36.0-48.0) % Plt Count 152 (150-450) 10^3/uL BMP 10/18/24 06:09 Sodium 145 Potassium 3.8 Chloride 105 Carbon Dioxide 31.6 BUN 23.0 H Creatinine 0.91 Glucose 203 H Calcium 8.2 L Urine 10/17/24 Range/Units 09:45 Urine Color Lt. yellow (YELLOW) Urine Clarity Slightly cloudy A (CLEAR) Urine pH 7.0 (5.0-9.0) Ur Specific [place] <=1.005 A (1.005-1.025) Urine Protein Negative (NEG/TRACE) mg/dL Urine Glucose (UA) Negative (NEGATIVE) mg/dL Progress Note: A&P Assessment and Plan (1) Edema, peripheral: (2) Chronic obstructive pulmonary disease with (acute) exacerbation: (3) Acute combined systolic (congestive) and diastolic (congestive) heart failure: (4) Acute hypoxic respiratory failure: (5) Brain mass: (6) Urinary tract infection: Qualifiers: Hematuria presence: without hematuria Urinary tract infection type: acute cystitis Qualified Code(s): N30.00 - Acute cystitis without hematuria (7) Muscle weakness: (8) Depression: (9) Sleep apnea: (10) Anxiety: (11) Hyperlipemia: (12) Hypertension: (13) Multiple sclerosis: (14) Bipolar 1 disorder: (15) Morbid obesity: (16) Severe protein-calorie malnutrition: (17) Hypertensive urgency: (18) Respiratory acidosis: (19) Iron deficiency anemia: (20) Cardiac murmur: Plan Admission findings: Borderline fever, 99, sinus tachycardia, respiratory distress, uncontrolled hypertensive with hypertensive urgency leading to acute combined congestive heart failure and acute exacerbation of COPD with acute hypoxic respiratory failure requiring BiPAP ventilation Acute combined congestive heart failure leading to acute hypoxic respiratory failure requiring BiPAP ventilation with acute respiratory acidosis with compensatory metabolic alkalosis-troponin is up today, possibly related to the acute severe hypotension last night, repeating labs, are improved, repeat later today and echo in a.m., holding off on heparin drip, did start heparin bolus and then with reconsideration after her brain surgery a month ago and her troponin improving we will hold off on drip at this time Severe sepsis with septic shock leading to acute NSTEMI type II-requiring Levophed-likely related to the urinary tract infection, start IV antibiotics today, hydrocortisone for blood pressure support try to wean off of Levophed Acute exacerbation of the COPD-no signs of infection with normal white blood cell count although she does have a left shift that may be consistent with a bacterial process, check sputum culture, aerosol treatments antibiotics as outlined above Hypertensive urgency-eye with severe hypotension-on Levophed but able to wean- see above Hyperglycemia in a nonfasting state--elevated further continue to follow Severe protein calorie malnutrition with morbid obesity-diet supplements Sleep apnea-use home machine if available Iron deficiency anemia-check Hemoccult, her hemoglobin is down 2 to 3 g from her baseline Brain tumor-patient states has been benign, but that is why she is currently in rehab from surgical intervention History of urinary tract infections-check urinalysis History of multiple sclerosis-patient does not feel she is having a flare Bipolar disorder-maintain home medications History of hyperlipidemia but not currently on medications we will hold off for now Admission status: Patient presented to the emergency room with acute hypoxic respiratory failure requiring BiPAP ventilation secondary to acute combined congestive heart failure complicated by acute exacerbation of COPD, medically necessary treatment will span 2 midnights inpatient status in the stepdown unit ? Urinary Catheter Management Urinary Catheter Management Urethral: Cath placed during this visit: no
[2024-10-18] MEDS: HYDROCORTISONE SODIUM SUCC PF 100 MG/2 ML VIAL IVP ×2 (10:08→17:12)
[2024-10-18] MEDS: PIPERACILLIN SODIUM/TAZOBACTAM 3.375 GM in 0.9 % SODIUM CHLORIDE 50 ML IV ×2 (10:08→20:10)
[2024-10-18 10:17] LABS: Troponin I High Sensitivity 1354.8 pg/mL (4.0-51.3)
[2024-10-18 12:46] LABS: Troponin I High Sensitivity 1412.6 pg/mL (4.0-51.3)
[2024-10-18] MEDS: DIGOXIN 500 MCG/2 ML AMPUL 250 MCG IV ×2 (13:43→20:10)
[2024-10-18 15:39] LABS: Troponin I High Sensitivity 1275.6 pg/mL (4.0-51.3)
[2024-10-18] MEDS: METOPROLOL TARTRATE 25 MG TABLET PO (17:28)
[2024-10-18] MEDS: TRAZODONE HCL 50 MG TABLET 25 MG PO (21:27)
[2024-10-18] MEDS: SENNOSIDES/DOCUSATE SODIUM 1 TAB TABLET 2 TAB PO (21:27)
[2024-10-18] MEDS: MIRTAZAPINE 15 MG TABLET PO (21:28)
[2024-10-19] VITALS (58 sets, daily range): BP systolic 108–136; BP diastolic 61–78; PULSE 89–111; TEMP 36.3–36.9; O2SAT 5–99; BMI 46.5
--- NOTE | 2024-10-19 00:31 | PC.NURSE ---
2 lt oxygen applied via NC because patient c/o being SOB and oxygen reading 87-88%
--- NOTE | 2024-10-19 00:33 | PC.NURSE ---
attempted to remove oxygen but desated again to 87-88% At 1 lt of oxygen she was 89-90% She is currently at 2 lts oxygen.
[2024-10-19] MEDS: HYDROCORTISONE SODIUM SUCC PF 100 MG/2 ML VIAL IVP ×3 (01:38→17:39)
[2024-10-19] MEDS: DIGOXIN 500 MCG/2 ML AMPUL 250 MCG IV (01:38)
--- NOTE | 2024-10-19 02:49 | PC.NURSE ---
Patient insisted that RN remove alexis cath. now. RN educated pt on reasons why he needs it. He was angry , RN removed and notified KIRK Calloway
[2024-10-19] MEDS: PIPERACILLIN SODIUM/TAZOBACTAM 3.375 GM in 0.9 % SODIUM CHLORIDE 50 ML IV ×3 (03:11→19:27)
[2024-10-19 05:42] LABS: Digoxin 1.1 ng/mL (0.9-2.0)
[2024-10-19 05:56] LABS: Anion Gap 12.5; Calcium 8.5 mg/dL (8.5-10.1); Carbon Dioxide 32.6 mmol/L (21.0-32.0); Chloride 107 mmol/L (98-107); Estimated GFR (African America >60 (>=60 mL/min/1.73m^2); Estimated GFR (Non-African Ame >60 (>=60 mL/min/1.73m^2); Glucose 114 mg/dL (74-106); Potassium 4.1 mmol/L (3.5-5.1); Sodium 148 mmol/L (136-145)
--- NOTE | 2024-10-19 06:35 | P.PN_ITS ---
Progress Note: Subjective Subjective Interval history: Patient up in chair, O2 is currently off was placed on overnight time with hypoxia at rest, likely sleep apnea Patient says she does feel better with her breathing overall Did have an episode of chest pain in the middle the night but did not tell staff encouraged her to tell staff if she gets any symptoms at all Exam Constitutional Vital Signs, click to edit/add: Last Vital Signs Temp 98.4 F 10/19/24 04:00 Pulse 94 H 10/19/24 06:20 Resp 18 10/19/24 06:20 BP 128/76 10/19/24 04:51 Pulse Ox 96 10/19/24 06:20 O2 Del Method Nasal Cannula 10/19/24 04:16 O2 Flow Rate 2 10/19/24 04:16 FiO2 30 10/17/24 05:00 Documenting provider has reviewed patient's vital signs: yes Common normals: no apparent distress (No conversational dyspnea) Chest Common normals: inspection of chest normal Respiratory Common normals: normal respiratory effort; not clear to ascultation bilaterally Auscultation: rales (Bases unchanged) and diminished lung sounds Cardio Common normals: regular rate and regular rhythm; murmurs detected Heart sounds: murmur GI Common normals: soft to palpation and non-tender; negative for Normal to inspection, nondistended, normoactive bowel sounds present (Morbid obesity) Extremity Common normals: abnormal to inspection (3+ edema-unchanged) and clubbing, cyanosis or edema Progress Note: Objective Labs Labs: [facility] 10/18/24 10/19/24 06:09 05:05 Sodium 145 148 H Potassium 3.8 4.1 Chloride 105 107 Carbon Dioxide 31.6 32.6 H BUN 23.0 H 27.0 H Creatinine 0.91 0.73 Glucose 203 H 114 H Calcium 8.2 L 8.5 Progress Note: A&P Assessment and Plan (1) Edema, peripheral: (2) Chronic obstructive pulmonary disease with (acute) exacerbation: (3) Acute combined systolic (congestive) and diastolic (congestive) heart failure: (4) Acute hypoxic respiratory failure: (5) Brain mass: (6) Urinary tract infection: Qualifiers: Hematuria presence: without hematuria Urinary tract infection type: acute cystitis Qualified Code(s): N30.00 - Acute cystitis without hematuria (7) Muscle weakness: (8) Depression: (9) Sleep apnea: (10) Anxiety: (11) Hyperlipemia: (12) Hypertension: (13) Multiple sclerosis: (14) Bipolar 1 disorder: (15) Morbid obesity: (16) Severe protein-calorie malnutrition: (17) Hypertensive urgency: (18) Respiratory acidosis: (19) Iron deficiency anemia: (20) Cardiac murmur: Plan Admission findings: Borderline fever, 99, sinus tachycardia, respiratory distress, uncontrolled hypertensive with hypertensive urgency leading to acute combined congestive heart failure and acute exacerbation of COPD with acute hypoxic respiratory failure requiring BiPAP ventilation Acute combined congestive heart failure leading to acute hypoxic respiratory failure requiring BiPAP ventilation with acute respiratory acidosis with compensatory metabolic alkalosis-troponin trending down, echocardiogram pending, consult to cardiology pending, maintain current treatment plan, tolerating metoprolol and digoxin, digoxin level normal, repeat in a.m. Severe sepsis with septic shock leading to acute NSTEMI type II-requiring Levophed-likely related to the urinary tract infection, check on urine culture Acute exacerbation of the COPD-no signs of infection with normal white blood cell count although she does have a left shift that may be consistent with a bacterial process, check sputum culture, aerosol treatments antibiotics as outlined above Hypertensive urgency-progress to severe hypotension she is currently off of Levophed, blood pressure still soft so we will hold off on further blood pressure medications other than the metoprolol and Hyperglycemia in a nonfasting state--elevated further continue to follow Severe protein calorie malnutrition with morbid obesity-diet supplements Sleep apnea-patient states she was not told this in the past but on her chart it does list that, patient's memory is poor Iron deficiency anemia-check Hemoccult, her hemoglobin is down 2 to 3 g from her baseline L Brain tumor-patient states has been benign, but that is why she is currently in rehab from surgical intervention History of urinary tract infections-check urinalysis History of multiple sclerosis-patient does not feel she is having a flare Bipolar disorder-maintain home medications History of hyperlipidemia but not currently on medications we will hold off for now Admission status: Patient presented to the emergency room with acute hypoxic respiratory failure requiring BiPAP ventilation secondary to acute combined congestive heart failure complicated by acute exacerbation of COPD, medically necessary treatment will span 2 midnights inpatient status in the stepdown unit ? Urinary Catheter Management Urinary Catheter Management Urethral: Cath placed during this visit: yes Urethral indwelling: No Insertion date: 10/18/24
[2024-10-19 06:38] LABS: Basophils Percent Auto 0.1 % (0.2-2.0); Hematocrit 29.6 % (36.0-48.0); Hemoglobin 8.8 g/dL (12.0-16.0); Immature Granulocytes Abs Auto 0.07 10^3/uL (0.00-0.03); Immature Granulocytes Pct Auto 0.7 % (0.0-0.5); Lymphocytes Percent Auto 9.6 % (20.5-60.0); Mean Corpuscular HGB Conc 29.7 g/dL (29.9-35.2); Mean Corpuscular Hemoglobin 28.7 pg (26.7-34.0); Mean Corpuscular Volume 96.4 fL (81.0-99.0); Mean Platelet Volume 10.7 fL (9.5-13.5); Monocytes Absolute Auto 0.6 10^3/uL (0.3-0.8); Monocytes Percent Auto 5.9 % (1.7-12.0); Neutrophils Absolute Auto 8.8 10^3/uL (1.4-6.5); Neutrophils Percent Auto 83.7 % (43.0-75.0); Platelet Count 180 10^3/uL (150-450); Red Blood Count 3.07 10^6/uL (4.20-5.40); Red Cell Distribution Width 18.9 % (11.0-15.0); White Blood Count 10.5 10^3/uL (4.0-11.0)
[2024-10-19 06:52] LABS: Alanine Aminotransferase 47 U/L (14-59); Albumin Globulin Ratio 0.5; Albumin Level 1.9 g/dL (3.4-5.0); Alkaline Phosphatase 93 U/L (46-116); Aspartate Amino Transferase 35 U/L (15-37); Bilirubin Direct 0.1 mg/dL (0.0-0.2); Bilirubin Total 0.3 mg/dL (0.2-1.0); Globulin 3.8 g/dL; Total Protein 5.7 g/dL (6.4-8.2)
--- NOTE | 2024-10-19 07:00 | CA_ITS ---
Patient Name: NITHYA VASQUEZ MR#: [id number] : 1970 Exam Date: 10/19/2024 Ordering Doctor: AVTAR MORRIS ECHOCARDIOGRAM REPORT PROCEDURE: CA ECHO DOPPLER COMPLETE INDICATIONS: Acute CHF, hypertension, COPD, sleep apnea COMPARISON: None. DESCRIPTION: COMPLETE ECHOCARDIOGRAM Real-time transthoracic echocardiography with 2D, M-mode, spectral and color flow Doppler performed. QUALITY: Technical quality was fair. Poor sound transmission. LEFT VENTRICLE: Normal chamber size. Borderline left ventricular hypertrophy. Systolic function appears normal. Segmental wall motion cannot be accurately assessed due to poor sound transmission. There seems to be resting outflow gradient around 16 mmHg that increased to 93 mmHg with Valsalva maneuver. LV EF: Normal left ventricular ejection fraction, (>55%). DIASTOLIC: ATRIAL SEPTUM: Visually appears intact. LEFT ATRIUM: Normal chamber size. RIGHT ATRIUM: Normal chamber size. RIGHT VENTRICLE: Normal chamber size. Systolic function appears normal. TRICUSPID VALVE: Normal mobility and thickness. No stenosis with no regurgitation. MITRAL VALVE: Mildly thickened with normal mobility. No evidence of mitral valve stenosis. Mild mitral annular calcification. No mitral regurgitation. AORTIC VALVE: Poorly visualized. No visible sclerosis. No clear evidence of aortic valve stenosis. No aortic regurgitation. AORTIC ROOT: Normal diameter and appearance. PULMONIC VALVE: Normal thickness and mobility. No stenosis. No regurgitation. PERICARDIUM: Small circumferential pericardial effusion. IVC: IVC is normal in size, does not fully collapse. PLEURA: CONCLUSION: 1. Poor sound transmission reduces the sensitivity of the test. 2. Left ventricular systolic function appears to be normal. No significant hypertrophy is appreciated. There is evidence of ventricular outflow obstruction that is exaggerated with the Valsalva maneuver with a peak gradient of 93 mmHg. It is unclear if the pressure gradient is mostly from intracavitary versus LVOT. 3. The right ventricle appears normal in size with normal systolic function. 4. No evidence of significant valvular dysfunction seen. 5. Small circumferential pericardial effusion. 6. A transesophageal echocardiogram is recommended for further delineation of the above abnormalities. Adult Echocardiography Procedure Report Left Ventricle LVEDD (3.7 - 5.6 cm): 4.10 cm LVESD (2.2 - 4.0 cm): 2.94 cm LVIVS thickness (0.6 - 1.2 cm): 1.10 cm LVPW thickness (0.5 - 1.0 cm): 1.11 cm e': 0.07 m/s LVOT Diameter 2.31 cm Left Atrium LA Volume Index (2D A2C): 27.30 ml/m2 Left Atrium Systolic Dimension: 3.57 cm Mitral Valve Mitral Valve E-Wave Peak Velocity: 0.39 m/s Right Ventricle Aorta AO Root Diam: 2.68 cm Aortic Valve Peak Velocity(Antegrade Flow): 4.82 m/s Peak Gradient(Antegrade Flow): 92.85 mm[Hg] Mean Velocity(Antegrade Flow): 2.63 m/s Mean Gradient(Antegrade Flow): 36.73 mm[Hg] Velocity Time Integral: 86.57 cm Tricuspid Valve Pulmonic Valve Peak Velocity: 1.09 m/s Peak Gradient: 5.53 mm[Hg], 3.98 mm[Hg] Right Atrium Dictated by: Socrates Gutierrez M.D. on 10/19/2024 at 17:21 Approved by: Socrates Gutierrez M.D. on 10/19/2024 at 17:41
[2024-10-19] MEDS: ENSURE HP 237 ML LIQUID PO ×2 (08:15→21:00)
[2024-10-19] MEDS: DIGOXIN 125 MCG TABLET 250 MCG PO (08:15)
[2024-10-19] MEDS: LEVETIRACETAM 500 MG TABLET PO ×2 (08:15→21:01)
[2024-10-19] MEDS: METOPROLOL TARTRATE 25 MG TABLET PO (08:15)
[2024-10-19] MEDS: PROSTAT 15 GM PROTEIN/100 CAL 30 ML LIQUID PACKET PO ×2 (08:15→21:01)
[2024-10-19] MEDS: LEVOFLOXACIN IN DEXTROSE 5 % 750 MG/150 ML PREMIX 100 MG IV (08:21)
--- NOTE | 2024-10-19 08:57 | CM.NOTE ---
Rounds made with Dr. Holguin, no discharge today. Discussed with pt am lab work and plan of care. Pt comes from [facility] skilled and does plan to return at discharge.
--- NOTE | 2024-10-19 09:18 | CM.NOTE ---
Important Message From Medicare discussed with pt, pt verbalizes understanding and signs paper. Original given to pt and copy placed in pt's chart.
[2024-10-19] MEDS: BUMETANIDE 1 MG/4 ML VIAL IVP ×2 (09:32→21:00)
--- NOTE | 2024-10-19 09:32 | CM.NOTE ---
Faxed updates to [facility] for patient, Case Management referral , physician notes, and face sheet.
[2024-10-19] MEDS: ENOXAPARIN SODIUM 80 MG/0.8 ML SYRINGE SUBQ (09:33)
--- NOTE | 2024-10-19 10:28 | CM.NOTE ---
Called and spoke with pt's son in regards to discharge planning, pt in agreement with Case Management speaking with son and [facility]. Son requesting pt to go back to [facility] for skilled therapy at discharge. Called admissions at [facility], they did received updates and will start precert for pt.
--- NOTE | 2024-10-19 11:46 | PT.DAILY ---
Physical Therapy Daily Note PT Daily Note/Assess Start: 10/17/24 09:42 Freq: Status: Active Protocol: Document 10/19/24 11:33 AVA (Rec: 10/19/24 11:46 [id number] Physical Therapy Daily Note/Assessment Time In/Time Out Time In 11:00 Time Out 11:20 Pain In Pain N/A Pain Out Pain N/A Subjective Subjective Pt sitting in BS chair upon arrival .Agrees to PT. Slow response to questions. Emptied 1200 cc from catheter prior to gait/transfers. Therapeutic Exercise Time Therapeutic Exercise 6 Minutes (minutes) Therapeutic Exercise 1 Units Therapeutic Exercise Treatment Therapeutic Exercise Long sitting in recliner with feet elevated pt performs Treatment AP, heel slides, and abduction slides 10x ea. Feet lowered pt performs HR, marches, LAQ, add squeezes and manually resisted abduction 10x ea. Therapeutic Activity Time Therapeutic Activity 5 Minutes (minutes) Therapeutic Activity 0 Units Therapeutic Activity Treatment Chair Transfer Contact Guard Assist Ability Therapeutic Activity Sit>stand CGA with vc to scoot to edge of chair and Comments push from arm rest. Pt amb 5' with RW, CGA. Becomes SOB . Denies pain or dizziness. HR 107 and respirations 17 Spo2 92% on room air. Wishes to sit back down. Pt returned to BS chair. CAll light within reach and needs met. Total Physical Therapy Time Total Therapy 11 Minutes Total Physical 1 Therapy Units Summary Daily Note Summary Apprehensive with amb today - limiting session. Would benefit from SNF to regain strength, endurance and confidence to return to [facility].
--- NOTE | 2024-10-19 19:22 | P.CACN_ITS ---
History of Present Illness History of Present Illness Consult date: 10/19/24 Requesting physician: Alonzo Holguin Chief complaint: SHORT OF BREATH CHF RESP FAILURE Narrative: This is a 54-year-old woman with prior history of morbid obesity, benign brain tumor status post brain surgery 1 month ago, and multiple sclerosis who is admitted with hypoxic respiratory failure and picture suggestive of possible congestive heart failure. She was found to have mildly elevated high- sensitivity troponin and elevated NT proBNP. I am consulted regarding the above. It is difficult to obtain a detailed history from her as she appears to be a little bit confused or has memory issues. It appears that currently she is breathing comfortably without any significant distress. She denies any chest pain. She does have lower extremity edema and both legs are wrapped in compre ssion dressing. Today showed normal ventricular systolic function and there was evidence of elevated gradient between the ventricle and the aorta that was unclear if it was from intracavitary versus LVOT source. She did have a small circumferential pericardial effusion. Based on the poor echocardiogram images I recommended a transesophageal echocardiogram for further delineation of the above ab normalities. Her ECG shows sinus rhythm without significant abnormalities. Review of Systems ROS Status of ROS unobtainable due to mental status [facility] Medical History (Updated 10/19/24 @ 19:34 by ARTURO MOY) Bladder dysfunction ?N31.9 - Neuromuscular dysfunction of bladder, unspecified (ICD-10) Weakness ?R53.1 - Weakness (ICD-10) Dysphagia ?R13.10 - Dysphagia, unspecified (ICD-10) Rhabdomyolysis ?M62.82 - Rhabdomyolysis (ICD-10) Muscle weakness ?M62.81 - Muscle weakness (generalized) (ICD-10) Depression ?F32.A - Depression, unspecified (ICD-10) Sleep apnea ?G47.30 - Sleep apnea, unspecified (ICD-10) Insomnia ?G47.00 - Insomnia, unspecified (ICD-10) Anxiety ?F41.9 - Anxiety disorder, unspecified (ICD-10) Panic disorder ?F41.0 - Panic disorder [episodic paroxysmal anxiety] (ICD-10) Hyperlipemia ?E78.5 - Hyperlipidemia, unspecified (ICD-10) Hypertension ?I10 - Essential (primary) hypertension (ICD-10) Nutritional deficiency ?E63.9 - Nutritional deficiency, unspecified (ICD-10) Bipolar 1 disorder ?F31.9 - Bipolar disorder, unspecified (ICD-10) Pressure injury of sacral region, stage 2 ?L89.152 - Pressure ulcer of sacral region, stage 2 (ICD-10) Obesity ?E66.9 - Obesity, unspecified (ICD-10) Multiple sclerosis ?G35 - Multiple sclerosis (ICD-10) Surgical History (Updated 10/17/24 @ 08:14 by Aliza Jung) History of craniotomy ?Z98.890 - Other specified postprocedural states (ICD-10) Social History Highest level of school completed/degree received: don't know Little interest or pleasure in doing things: not at all Feeling down, depressed, or hopeless: not at all Meds Home Medications and Allergies Home Medications ?Medication ?Instructions ?Recorded ?Confirmed ?Type acetaminophen 325 mg tablet 650 mg PO Q6H PRN pain 10/17/24 History (Tylenol) albuterol sulfate 2.5 mg/3 mL 2.5 mg inhalation Q4H MS N 10/17/24 10/17/24 History (0.083 %) solution for nebulization shortness of breat h or wheezing levetiracetam 500 mg tablet 500 mg PO Q12H 10/17/24 History metoprolol tartrate 25 mg tablet 25 mg PO Q12H 5 10/17/24 History mirtazapine 15 mg disintegrating 15 mg PO HS 10/17/24 10/17/24 History tablet sennosides 8.6 mg-docusate sodium 2 tab-cap PO .QHS 10/17/24 History 50 mg tablet (Senna Plus) trazodone 50 mg tablet 25 mg PO HS 10/17/24 5 History Allergies Allergy/AdvReac Type Severity Reaction Status Date / Time No Known Drug Allergies Allergy Verified 10/17/24 02:15 Exam Constitutional Vital Signs, click to edit/add: Last Vital Signs Temp 97.4 F L 10/19/24 12:35 Pulse 104 H 10/19/24 17:58 Resp 16 10/19/24 13:16 BP 136/77 10/19/24 12:35 Pulse Ox 91 L 10/19/24 13:16 O2 Del Method Room Air 10/19/24 13:16 O2 Flow Rate 2 10/19/24 04:16 FiO2 30 10/17/24 05:00 Nutritional appearance: obese Orientation/consciousness: Yes awake HENMT Common normals: normocephalic Eye Common normals: conjunctivae normal Chest Common normals: inspection of chest normal Respiratory Common normals: normal respiratory effort Auscultation: clear to auscultation bilaterally Cardio Common normals: no JVD, regular rate and regular rhythm Heart sounds: murmur (Grade 2/6 systolic ejection murmur RUSB with valsalva) Peripheral pulses: radial pulses present Extremity General: edema (Lower extremities are wrapped in bandage; difficult to appreciate edema) Neuro Sensorium/orientation: other (Appears somewhat confused versus memory loss) Results Labs and Meds Lab results: Cardiac Enzymes 10/19/24 Range/Units 05:05 AST 35 (15-37) U/L CBC 10/19/24 Range/Units 05:05 WBC 10.5 (4.0-11.0) 10^3/uL RBC 3.07 L (4.20-5.40) 10^6/uL Hgb 8.8 L (12.0-16.0) g/dL Hct 29.6 L (36.0-48.0) % Plt Count 180 (150-450) 10^3/uL Neut # (Auto) 8.8 H (1.4-6.5) 10^3/uL Lymph # (Auto) 1.0 L (1.2-3.8) 10^3/uL Pender # (Auto) 0.6 (0.3-0.8) 10^3/uL Eos # (Auto) 0.0 (0.0-0.7) 10^3/uL Baso # (Auto) 0.0 (0.0-0.1) 10^3/uL Comprehensive Metabolic Panel 10/19/24 Range/Units 05:05 Sodium 148 H (136-145) mmol/L Potassium 4.1 (3.5-5.1) mmol/L Chloride 107 (98-107) mmol/L Carbon Dioxide 32.6 H (21.0-32.0) mmol/L BUN 27.0 H (7.0-18.0) mg/dL Creatinine 0.73 (0.55-1.02) mg/dL Glucose 114 H (74-106) mg/dL Calcium 8.5 (8.5-10.1) mg/dL Direct Bilirubin 0.1 (0.0-0.2) mg/dL AST 35 (15-37) U/L ALT 47 (14-59) U/L Alkaline Phosphatase 93 (46-116) U/L Total Protein 5.7 L (6.4-8.2) g/dL Albumin 1.9 L (3.4-5.0) g/dL Intake and Output 10/19/24 10/19/24 10/19/24 07:59 15:59 23:59 Intake Total 50 / 885.833 250 / 250 Output Total 650 / 1850 1200 / 1850 650 / 1850 Balance -600 / -964.167 -950 / -1600 -650 / -1600 Intake: IV 50 / 405.833 250 / 250 Levofloxacin in Dextrose 5 % 150 / 150 750 mg In 150 ml @ 100 mls/hr IV Q24H [facility] Rx#:[id number] Norepinephrine Bitartrate/D5w 4 0 / 0 mg In 250 ml @ 15 MCG/MIN 56. 25 mls/hr IV [facility] Rx#: [id number] Piperacillin Sodium/Tazobactam 50 / 100 100 / 100 3.375 gm In 0.9 % Sodium Chloride 50 ml @ 12.5 mls/hr IV Q8H [facility] Rx#:[id number] Output: Urine Amount (Catheter) 650 / 1850 1200 / 1850 650 / 1850 Urethral 650 / 1850 1200 / 1850 650 / 1850 Other: Weight 130.6 kg 130.6 kg Patient Weight 10/20/24 07:59 Weight 130.6 kg Assessment and Plan Assessment and Plan (1) Acute diastolic heart failure: (2) Cardiac murmur: (3) Elevated troponin: (4) Edema, peripheral: (5) Chronic obstructive pulmonary disease with (acute) exacerbation: (6) Acute hypoxic respiratory failure: (7) Brain mass: (8) Urinary tract infection: Qualifiers: Hematuria presence: without hematuria Urinary tract infection type: acute cystitis Qualified Code(s): N30.00 - Acute cystitis without hematuria (9) Muscle weakness: (10) Depression: (11) Sleep apnea: (12) Anxiety: (13) Hyperlipemia: (14) Hypertension: (15) Multiple sclerosis: (16) Bipolar 1 disorder: (17) Morbid obesity: (18) Severe protein-calorie malnutrition: (19) Hypertensive urgency: (20) Respiratory acidosis: (21) Iron deficiency anemia: Plan It is not very clear what is causing the finding on the echocardiogram as the echocardiogram images are of suboptimal quality due to poor sound transmission likely related to her body habitus preventing adequate transmission of ultrasound. She does have late peaking gradient that could be originating either from the ventricular cavity or from the LV outflow tract. Further delineation of this would be made possible by transesophageal echocardiogram however at this time I think this does not need to be performed during this hospitalization and can be considered as an outpatient. The current presentation is difficult to a certain however given elevated NT proBNP I think there is an element of heart failure and I agree with gentle diu resis. 8 would be diastolic heart failure. I recommend stopping digoxin and changing metoprolol tartrate to succinate 100 mg once daily. As for the elevated troponin, I think this represents type II myocardial infarction as there is no evidence of ischemic symptoms or ischemic ECG changes. I think there might be an element of dependent lower extremity edema in which case I would not rely on the lower extremity edema to guide diuretic therapy.
[2024-10-19] MEDS: SENNOSIDES/DOCUSATE SODIUM 1 TAB TABLET 2 TAB PO (21:00)
[2024-10-19] MEDS: TRAZODONE HCL 50 MG TABLET 25 MG PO (21:00)
[2024-10-19] MEDS: MIRTAZAPINE 15 MG TABLET PO (21:01)
[2024-10-20] VITALS (22 sets, daily range): BP systolic 109–139; BP diastolic 65–86; PULSE 84–108; TEMP 36.3–36.7; O2SAT 86–99
[2024-10-20] MEDS: HYDROCORTISONE SODIUM SUCC PF 100 MG/2 ML VIAL IVP ×3 (02:51→17:18)
[2024-10-20] MEDS: PIPERACILLIN SODIUM/TAZOBACTAM 3.375 GM in 0.9 % SODIUM CHLORIDE 50 ML IV (02:51)
[2024-10-20 05:31] LABS: Basophils Percent Auto 0.1 % (0.2-2.0); Eosinophils Percent Auto 0.1 % (0.9-7.0); Hematocrit 29.9 % (36.0-48.0); Hemoglobin 8.9 g/dL (12.0-16.0); Immature Granulocytes Abs Auto 0.15 10^3/uL (0.00-0.03); Immature Granulocytes Pct Auto 1.8 % (0.0-0.5); Lymphocytes Absolute Auto 1.5 10^3/uL (1.2-3.8); Lymphocytes Percent Auto 17.4 % (20.5-60.0); Mean Corpuscular HGB Conc 29.8 g/dL (29.9-35.2); Mean Corpuscular Hemoglobin 28.3 pg (26.7-34.0); Mean Corpuscular Volume 94.9 fL (81.0-99.0); Mean Platelet Volume 10.4 fL (9.5-13.5); Monocytes Absolute Auto 0.8 10^3/uL (0.3-0.8); Monocytes Percent Auto 9.4 % (1.7-12.0); Neutrophils Absolute Auto 6.1 10^3/uL (1.4-6.5); Neutrophils Percent Auto 71.2 % (43.0-75.0); Platelet Count 192 10^3/uL (150-450); Red Blood Count 3.15 10^6/uL (4.20-5.40); Red Cell Distribution Width 18.5 % (11.0-15.0); White Blood Count 8.6 10^3/uL (4.0-11.0)
--- NOTE | 2024-10-20 05:57 | P.PN_ITS ---
Progress Note: Subjective Subjective Interval history: Patient awakens easily,, still with some shortness of breath but overall feels improved from previous day, denies chest pain, no chest pain the last 24 hours Exam Constitutional Vital Signs, click to edit/add: Last Vital Signs Temp 97.5 F L 10/20/24 04:48 Pulse 95 H 10/20/24 04:48 Resp 21 H 10/20/24 04:48 BP 122/84 10/20/24 04:48 Pulse Ox 93 L 10/20/24 04:48 O2 Del Method Nasal Cannula 10/20/24 04:48 O2 Flow Rate 1 10/20/24 04:48 FiO2 30 10/17/24 05:00 Documenting provider has reviewed patient's vital signs: yes Common normals: no apparent distress (No conversational dyspnea) Chest Common normals: inspection of chest normal Respiratory Common normals: normal respiratory effort; not clear to ascultation bilaterally Auscultation: rales (Remains unchanged) and diminished lung sounds Cardio Common normals: regular rate and regular rhythm; murmurs detected Heart sounds: murmur GI Common normals: soft to palpation and non-tender; negative for Normal to inspection, nondistended, normoactive bowel sounds present (Morbid obesity) Extremity Common normals: abnormal to inspection (2+ edema-unchanged) and clubbing, cyanosis or edema Progress Note: Objective Labs Labs: Short CBC 10/19/24 10/20/24 Range/Units 05:05 04:59 WBC 10.5 8.6 (4.0-11.0) 10^3/uL Hgb 8.8 L 8.9 L (12.0-16.0) g/dL Hct 29.6 L 29.9 L (36.0-48.0) % Plt Count 180 192 (150-450) 10^3/uL BMP 10/19/24 05:05 Sodium 148 H Potassium 4.1 Chloride 107 Carbon Dioxide 32.6 H BUN 27.0 H Creatinine 0.73 Glucose 114 H Calcium 8.5 Liver Function 10/19/24 Range/Units 05:05 Total Bilirubin 0.3 (0.2-1.0) mg/dL Direct Bilirubin 0.1 (0.0-0.2) mg/dL AST 35 (15-37) U/L ALT 47 (14-59) U/L Alkaline Phosphatase 93 (46-116) U/L Albumin 1.9 L (3.4-5.0) g/dL Progress Note: A&P Assessment and Plan (1) Acute diastolic heart failure: (2) Cardiac murmur: (3) Elevated troponin: (4) Edema, peripheral: (5) Chronic obstructive pulmonary disease with (acute) exacerbation: (6) Acute hypoxic respiratory failure: (7) Brain mass: (8) Urinary tract infection: Qualifiers: Hematuria presence: without hematuria Urinary tract infection type: acute cystitis Qualified Code(s): N30.00 - Acute cystitis without hematuria (9) Muscle weakness: (10) Depression: (11) Sleep apnea: (12) Anxiety: (13) Hyperlipemia: (14) Hypertension: (15) Multiple sclerosis: (16) Bipolar 1 disorder: (17) Morbid obesity: (18) Severe protein-calorie malnutrition: (19) Hypertensive urgency: (20) Respiratory acidosis: (21) Iron deficiency anemia: (22) Acute combined systolic (congestive) and diastolic (congestive) heart failure: Plan Admission findings: Borderline fever, 99, sinus tachycardia, respiratory distress, uncontrolled hypertensive with hypertensive urgency leading to acute combined congestive heart failure and acute exacerbation of COPD with acute hypoxic respiratory failure requiring BiPAP ventilation Acute combined congestive heart failure leading to acute hypoxic respiratory failure requiring BiPAP ventilation with acute respiratory acidosis with co mpensatory metabolic alkalosis-good diuresis yesterday, repeat IV diuretics again today, echocardiogram with possible HSS complicating the above picture, high-sensitivity troponin and BNP are trending down Severe sepsis with septic shock leading to acute NSTEMI type II-requiring Levophed-likely related to the urinary tract infection, check on urine culture Echocardiogram consistent with ventricular outflow tract obstruction, not great pictures-will need outpatient GAMALIEL for possible IHSS Acute exacerbation of the COPD-no signs of infection with normal white blood cell count although she does have a left shift that may be consistent with a bacterial process, check sputum culture, aerosol treatments antibiotics as outlined above Hypertensive urgency-progress to severe hypotension she is currently off of Levophed, blood pressure maintaining on metoprolol, continue to monitor, heart rate controlled. Digoxin as recommended by cardiology, high-sensitivity troponin and BNP are trending down Hyperglycemia in a nonfasting state--elevated further continue to follow Hypernatremia-secondary to fluid use balance, monitor daily Hyperglycemia-down somewhat from previous day, continue to monitor Severe protein calorie malnutrition with morbid obesity-diet supplements Sleep apnea-patient states she was not told this in the past but on her chart it does list that, patient's memory is poor Iron deficiency anemia-check Hemoccult, results pending Brain tumor-patient states has been benign, but that is why she is currently in rehab from surgical intervention History of urinary tract infections due to Proteus mirabilis-check urinalysis, sensitive to everything's will change patient to oral levofloxacin History of multiple sclerosis-patient does not feel she is having a flare Bipolar disorder-maintain home medications History of hyperlipidemia but not currently on medications we will hold off for now Admission status: Patient presented to the emergency room with acute hypoxic respiratory failure requiring BiPAP ventilation secondary to acute combined congestive heart failure complicated by acute exacerbation of COPD, medically necessary treatment will span 2 midnights inpatient status in the stepdown unit ? Urinary Catheter Management Urinary Catheter Management Urethral: Cath placed during this visit: yes Urethral indwelling: No Insertion date: 10/18/24
[2024-10-20 05:59] LABS: Digoxin 0.8 ng/mL (0.9-2.0)
[2024-10-20 06:01] LABS: Anion Gap 9.2; BUN Creatinine Ratio 37.7; Calcium 8.5 mg/dL (8.5-10.1); Carbon Dioxide 34.4 mmol/L (21.0-32.0); Chloride 109 mmol/L (98-107); Estimated GFR (African America >60 (>=60 mL/min/1.73m^2); Estimated GFR (Non-African Ame >60 (>=60 mL/min/1.73m^2); Glucose 92 mg/dL (74-106); Potassium 3.6 mmol/L (3.5-5.1); Sodium 149 mmol/L (136-145)
[2024-10-20 06:20] LABS: Troponin I High Sensitivity 833.8 pg/mL (4.0-51.3)
--- NOTE | 2024-10-20 08:27 | CM.NOTE ---
Rounds made with Dr. Holguin. Dr. Holguin reviews changes with Yamilka and abnormal findings. Verbalizes understanding.
--- NOTE | 2024-10-20 08:51 | REH.PTDLY ---
Physical Therapy Daily Note PT Daily Note/Assess Start: 10/17/24 09:42 Freq: Status: Active Protocol: Document 10/20/24 08:40 ADRIANA (Rec: 10/20/24 08:51 MIKELTEINJANA [id number]) Physical Therapy Daily Note/Assessment Time In 08:08 Time Out 08:26 Subjective Pt tired today, just got done using commode. Pt now on room air with SpO2 at 90%. No new complaints. Therapeutic Exercise 6 Minutes (minutes) Therapeutic Exercise 0 Units Therapeutic Exercise Instructed in B LE seated exs 10x ea with LAQ, marching Treatment , hip abd step outs, add squeeze, abd MRE for improved strength. Therapeutic Activity 8 Minutes (minutes) Therapeutic Activity 1 Units Therapeutic Activity Gait with RW CGA 35 feet in room with 1 standing rest Comments break due to fatigue. Sit to stand transfers from chair 4x with some dizziness initially upon standing and fatigue noted, slow to stand. Total Therapy 14 Minutes Total Physical 1 Therapy Units Daily Note Summary Pt has increased fatigue with short distance gait, CGA for safety. Pt would benefit from SNF stay due to being deconditioned.
[2024-10-20] MEDS: BUMETANIDE 1 MG/4 ML VIAL 2 MG IVP ×2 (09:00→21:47)
[2024-10-20] MEDS: ENOXAPARIN SODIUM 80 MG/0.8 ML SYRINGE SUBQ (09:00)
[2024-10-20] MEDS: LEVETIRACETAM 500 MG TABLET PO ×2 (09:00→21:46)
[2024-10-20] MEDS: LEVOFLOXACIN 750 MG TABLET PO (09:00)
[2024-10-20] MEDS: ENSURE HP 237 ML LIQUID PO ×2 (09:00→21:46)
[2024-10-20] MEDS: PROSTAT 15 GM PROTEIN/100 CAL 30 ML LIQUID PACKET PO ×2 (09:00→21:46)
[2024-10-20] MEDS: METOPROLOL SUCCINATE 100 MG TAB.ER.24H PO (09:01)
--- NOTE | 2024-10-20 09:52 | SWNOTE1 ---
SW faxed updates to [facility] for precert. Updates included PT/OT from today, physician note from yesterday and today, and vitals/labs, and nursing notes.
--- NOTE | 2024-10-20 13:05 | SWNOTE1 ---
OZZY received message from Renuka at [facility] and insurance is requesting peer to peer to be completed by physician for her rehab stay. OZZY sent information to Dr. Holguin for him to complete peer to peer. It has to be done by 4:30 today. Doctor is aware.
--- NOTE | 2024-10-20 14:32 | SWNOTE1 ---
Doctor completed peer to peer. OZZY heard from Renuka at [facility] and insurance is stating pt is not stable for discharge from the acute setting. Once she is ready a new auth can be submitted. OZZY reached back out to Renuka and let her know that OZZY will touch base tomorrow.
[2024-10-20 19:57] LABS: Internal Control Within Normal Limits; Occult Blood Positive
[2024-10-20] MEDS: MIRTAZAPINE 15 MG TABLET PO (21:46)
[2024-10-20] MEDS: TRAZODONE HCL 50 MG TABLET 25 MG PO (21:47)
[2024-10-21] VITALS (19 sets, daily range): BP systolic 96–138; BP diastolic 66–82; PULSE 57–109; TEMP 36.4–36.6; O2SAT 92–96
[2024-10-21] MEDS: HYDROCORTISONE SODIUM SUCC PF 100 MG/2 ML VIAL IVP (02:21)
[2024-10-21 05:57] LABS: Basophils Percent Auto 0.1 % (0.2-2.0); Eosinophils Percent Auto 0.1 % (0.9-7.0); Hemoglobin 10.3 g/dL (12.0-16.0); Immature Granulocytes Abs Auto 0.17 10^3/uL (0.00-0.03); Immature Granulocytes Pct Auto 1.8 % (0.0-0.5); Lymphocytes Percent Auto 10.5 % (20.5-60.0); Mean Corpuscular HGB Conc 30.3 g/dL (29.9-35.2); Mean Corpuscular Hemoglobin 27.8 pg (26.7-34.0); Mean Corpuscular Volume 91.9 fL (81.0-99.0); Mean Platelet Volume 10.4 fL (9.5-13.5); Monocytes Absolute Auto 0.9 10^3/uL (0.3-0.8); Monocytes Percent Auto 9.6 % (1.7-12.0); Neutrophils Absolute Auto 7.5 10^3/uL (1.4-6.5); Neutrophils Percent Auto 77.9 % (43.0-75.0); Platelet Count 179 10^3/uL (150-450); White Blood Count 9.6 10^3/uL (4.0-11.0)
[2024-10-21 06:22] LABS: Anion Gap 8.9; Calcium 8.7 mg/dL (8.5-10.1); Carbon Dioxide 38.1 mmol/L (21.0-32.0); Chloride 106 mmol/L (98-107); Estimated GFR (African America >60 (>=60 mL/min/1.73m^2); Estimated GFR (Non-African Ame >60 (>=60 mL/min/1.73m^2); Glucose 95 mg/dL (74-106); Sodium 150 mmol/L (136-145)
[2024-10-21 06:26] LABS: Troponin I High Sensitivity 643.9 pg/mL (4.0-51.3)
--- NOTE | 2024-10-21 06:55 | P.DS_ITS ---
DS: Providers Provider Date of admission: 10/17/24 07:05 Primary care physician: Kristin Gracia NP Consults: 10/17/24 08:24 Consult to Pharmacy Routine Consulting Provider: Reason for consultation: Please Semora me when Med Rec is Updated Has provider been notified: No Occupational Therapy Eval and Treat Routine Reason for consultation: Only if needed for Rehab Has provider been notified: No Physical Therapy Eval and Treat Routine Reason for consultation: Eval and Treat Has provider been notified: No 10/17/24 09:00 Occupational Therapy Eval and Treat Routine Reason for consultation: weakness Has provider been notified: No Physical Therapy Eval and Treat Routine Reason for consultation: Weakness Has provider been notified: No 10/19/24 06:34 Consult to Cardiology Routine Reason for consultation: NSTEMI Has provider been notified: No DS: Diagnosis Discharge Diagnosis (1) Acute diastolic heart failure: (2) Cardiac murmur: (3) Elevated troponin: (4) Edema, peripheral: (5) Chronic obstructive pulmonary disease with (acute) exacerbation: (6) Acute hypoxic respiratory failure: (7) Brain mass: (8) Urinary tract infection: Qualifiers: Hematuria presence: without hematuria Urinary tract infection type: acute cystitis Qualified Code(s): N30.00 - Acute cystitis without hematuria (9) Muscle weakness: (10) Depression: (11) Sleep apnea: (12) Anxiety: (13) Hyperlipemia: (14) Hypertension: (15) Multiple sclerosis: (16) Bipolar 1 disorder: (17) Morbid obesity: (18) Severe protein-calorie malnutrition: (19) Hypertensive urgency: (20) Respiratory acidosis: (21) Iron deficiency anemia: (22) Acute combined systolic (congestive) and diastolic (congestive) heart failure: Plan Admission findings: Borderline fever, 99, sinus tachycardia, respiratory distress, uncontrolled hypertensive with hypertensive urgency leading to acute combined congestive heart failure and acute exacerbation of COPD with acute h ypoxic respiratory failure requiring BiPAP ventilation Acute combined congestive heart failure leading to acute hypoxic respiratory failure requiring BiPAP ventilation with acute respiratory acidosis with compensatory metabolic alkalosis-g diuresis total of 17 L, with a net of 15, medically stable Severe sepsis with septic shock leading to acute NSTEMI type II-requiring Levophed-likely related to the urinary tract infection, due to Proteus mirabilis-sensitive to everything-stable Echocardiogram consistent with ventricular outflow tract obstruction, not great pictures-will need outpatient GAMALIEL for possible IHSS Acute exacerbation of the COPD-no respiratory distress-stable Hypertensive urgency-resolved Hyperglycemia in a nonfasting state-continue to follow Hypernatremia-slightly elevated today but overall stable can monitor as an outpatient Hyperglycemia-stable Severe protein calorie malnutrition with morbid obesity-maintain diet supplements Sleep apnea-hypoxia at at bedtime needs workup as an outpatient Acute blood loss anemia complicated by iron deficiency anemia-hemoglobin improved today, medically stable, workup as an outpatient positive Hemoccult Brain tumor-medically stable for rehab to continue progression for rehab for her brain surgery urinary tract infections due to Proteus mirabilis-maintain current antibiotics sensitive to everything, stable History of multiple sclerosis-patient does not feel she is having a flare Bipolar disorder-maintain home medications History of hyperlipidemia but not currently on medications we will hold off for now Admission status: Patient presented to the emergency room with acute hypoxic respiratory failure requiring BiPAP ventilation secondary to acute combined congestive heart failure complicated by acute exacerbation of COPD, medically necessary treatment will span 2 midnights inpatient status in the stepdown unit ? DS: Summary Status at Discharge Cognitive/behavioral status at discharge: Patient admitted with Admission findings: Borderline fever, 99, sinus tachycardia, respiratory distress, uncontrolled hypertensive with hypertensive urgency leading to acute combined congestive heart failure and acute exacerbation of COPD with acute hypoxic respiratory failure requiring BiPAP ventilation. Given bolus dose of diuretics overnight without significant improvement, patient was given Bumex drip, she tolerated that well but above 14- 15 hrs. into her admission patient condition deteriorated significantly requiring Levophed for severe hypotension, and hypoxia. Patient is deemed to severe sepsis with septic shock requiring Levophed, antibiotics were started, broad-spectrum, started on hydrocortisone as well, blood pressures seem to slowly improve, following day She had the tachycardia hypoxia has resolved and blood pressure stabilized she was started on metoprolol for the tachycardia and given 1 dose of IV Bumex which she tolerated well, good urine output, medications were adjusted over the next several days for treating the septic shock, she is off was off the Levophed for several days now, excellent diuresis, she diuresed 17 L total, 15 that. Septic shock secondary to Proteus mirabilis urinary infection, likely pyelonephritis, kidney function remained stable her sodium is a little bit elevated but can be monitored as an outpatient she also had due to the severe sepsis with septic shock had a acute NSTEMI and troponins are trending down, the initial presentation of the acute combined congestive heart failure state now deemed secondary to sepsis with septic shock, BNP continues to improve, cardiac workup and recommendation by cardiology recommend outpatient workup for possible left ventricular outflow tract obstruction on echo although it is difficult to get pictures secondary to her morbid obesity. Over the last 48 hours patient has been stable from a blood pressure standpoint and laboratory standpoint, she needed further diuresis and so was given IV Bumex, maintain IV Bumex up until the time of discharge but she is currently medically stable for discharge today. Lab results , vital signs are stable. Medically stable for discharge to rehab, follow-up with PCP at rehab, medications see list. Time Spent with Patient Time attestation: Total time spent providing and/or coordinating discharge services: Exam Constitutional Vital Signs, click to edit/add: Last Vital Signs Temp 97.8 F 10/21/24 04:00 Pulse 82 10/21/24 06:07 Resp 18 10/21/24 04:00 BP 138/81 10/21/24 04:00 Pulse Ox 92 L 10/21/24 04:00 O2 Del Method Nasal Cannula 10/21/24 04:00 O2 Flow Rate 1 10/21/24 04:00 FiO2 30 10/17/24 05:00 Documenting provider has reviewed patient's vital signs: yes Common normals: no apparent distress Chest Common normals: inspection of chest normal Respiratory Common normals: normal respiratory effort, no retractions, no use of accessory muscles and clear to auscultation bilaterally Auscultation: no crackles, no rales and no rhonchi Cardio Common normals: regular rate, regular rhythm, S1 normal heart sound, S2 normal heart sound and no murmurs GI Common normals: Normal to inspection, nondistended, normoactive bowel sounds present Extremity Common normals: abnormal to inspection (1+ edema) DS: Data Data Completed and Pending Labs on day of discharge: Labs from last 24 hours 10/21/24 10/20/24 05:42 19:35 WBC 9.6 RBC 3.70 L Hgb 10.3 L Hct 34.0 L MCV 91.9 MCH 27.8 MCHC 30.3 RDW 18.0 H Plt Count 179 MPV 10.4 Neut % (Auto) 77.9 H Lymph % (Auto) 10.5 L Roane % (Auto) 9.6 Eos % (Auto) 0.1 L Baso % (Auto) 0.1 L Neut # (Auto) 7.5 H Lymph # (Auto) 1.0 L Roane # (Auto) 0.9 H Eos # (Auto) 0.0 Baso # (Auto) 0.0 Abs Immat Gran (auto) 0.17 H Imm/Tot Granulo (auto) 1.8 H Sodium 150 H Potassium 3.0 L Chloride 106 Carbon Dioxide 38.1 H Anion Gap 8.9 BUN 34.0 H Creatinine 0.85 Est GFR ( Amer) >60 Est GFR (Non-Af Amer) >60 BUN/Creatinine Ratio 40.0 Glucose 95 Calcium 8.7 Troponin I High Sens 643.9 H* NT-Pro-B Natriuret Pep 2996.0 H* Stool Occult Blood Positive A Preliminary micro results at discharge 10/17/24 02:55 Blood Culture Result 2 - Preliminary Blood - Left Hand NO GROWTH AT 36-48 HOURS. FINAL TO FOLLOW. 10/17/24 02:47 Blood Culture Result 1 - Preliminary Blood - Right Antecubital NO GROWTH AT 36-48 HOURS. FINAL TO FOLLOW. Discharge Plan Discharge Disposition: Xfer [facility] Discharge Medications: New metoprolol succinate 100 mg Tablet Extended Release 24 Hr 100 mg PO QD Qty: 30 11RF levofloxacin 750 mg Tablet 750 mg PO QD Qty: 7 0RF zinc oxide [Diaper Rash] 40 % Ointment 1 applic topical QID PRN (Reason: Skin Irritation) Qty: 397 11RF Pro-Stat Sugar Free 15 gram- 100 kcal/30 mL Liquid In Packet 1 ea PO BID Qty: 2880 11RF bumetanide 1 mg tablet 1 mg PO DAILY Qty: 30 10RF Continued mirtazapine 15 mg tablet,disintegrating 15 mg PO HS sennosides-docusate sodium [Senna Plus] 8.6-50 mg tablet 2 tab-cap PO .QHS Rx Instructions: at bedtime acetaminophen [Tylenol] 325 mg tablet 650 mg PO Q6H PRN (Reason: pain) trazodone 50 mg tablet 25 mg PO HS levetiracetam 500 mg tablet 500 mg PO Q12H albuterol sulfate 2.5 mg /3 mL (0.083 %) solution for nebulization 2.5 mg inhalation Q4H PRN (Reason: shortness of breath or wheezing) Discontinued metoprolol tartrate 25 mg tablet 25 mg PO Q12H Print Language: Pashto Forms: Portal Instructions
[2024-10-21] MEDS: LEVOFLOXACIN 750 MG TABLET PO (08:28)
[2024-10-21] MEDS: METOPROLOL SUCCINATE 100 MG TAB.ER.24H PO (08:29)
[2024-10-21] MEDS: ENOXAPARIN SODIUM 80 MG/0.8 ML SYRINGE SUBQ (08:29)
[2024-10-21] MEDS: PROSTAT 15 GM PROTEIN/100 CAL 30 ML LIQUID PACKET PO ×2 (08:29→21:51)
[2024-10-21] MEDS: BUMETANIDE 1 MG/4 ML VIAL 2 MG IVP (08:29)
[2024-10-21] MEDS: LEVETIRACETAM 500 MG TABLET PO ×2 (08:29→21:51)
--- NOTE | 2024-10-21 08:50 | CM.NOTE ---
Rounds made with Dr. Holguin, discussed with pt possible discharge to [facility] for skilled today. Case Management reached out to insurance P-P line to update that pt was medically stable. Insurance requesting updates to start a new Precert. OZZY updated and sent the updates to Renuka at [facility]. Updated Dr. Holguin, he had spoke with physician 10/20 regarding denial for skilled. Insurance states precert can not be started until pt is medically stable and for skilled facility to reach out if pt stable today. Discussed with insurance company that pt was not on any life sustaining drips and we have never waited until day of discharge to start precert. Unable to get more information related to delay in precert, all updated information will need to be faxed today for further determination.
--- NOTE | 2024-10-21 08:56 | SWNOTE1 ---
Case management called insurance peer to peer number since pt is ready for dc today. They informed her that new precert needed to be submitted or can do appeal, but this may take longer. OZZY spoke to Renuka at [facility] and she just needs dc summary to re-submit precert. OZZY sent dc summary and dc med rec to Renuka at [facility].
[2024-10-21] MEDS: PANTOPRAZOLE SODIUM 40 MG TABLET.DR PO (09:51)
--- NOTE | 2024-10-21 11:32 | PT.DAILY ---
Physical Therapy Daily Note PT Daily Note/Assess Start: 10/17/24 09:42 Freq: Status: Active Protocol: Document 10/21/24 11:29 AVA (Rec: 10/21/24 11:32 AVA [id number]) Physical Therapy Daily Note/Assessment Time In/Time Out Time In 11:18 Time Out 11:28 Pain In Pain N/A Pain Out Pain N/A Subjective Subjective Pt sitting in BS chair upon arrival .Agrees to PT. Therapeutic Exercise Time Therapeutic Exercise 3 Minutes (minutes) Therapeutic Exercise 0 Units Therapeutic Exercise Treatment Therapeutic Exercise Seated bilat LE strengthening ex complete while sitting Treatment in BS chair 10x ea. Therapeutic Activity Time Therapeutic Activity 7 Minutes (minutes) Therapeutic Activity 1 Units Therapeutic Activity Treatment Chair Transfer Standby Assistance Ability Therapeutic Activity Sit>stand to RW SBA. Pt amb 25' with RW, CGA and assist Comments for O2 lines. SLow sj. Static standing 2 min while catheter is emptied. Pt reports feeling weak and needs to amb back to BS chair. Pt amb with RW another 25', CGA and assist for O2 lines. Returned to BS chair safely. Seated ex complete. Call light within reach and needs met. Total Physical Therapy Time Total Therapy 10 Minutes Total Physical 1 Therapy Units Summary Daily Note Summary Quickly fatigued with functional standing activities. Would benefit from SNF to regain strength and endurance .
--- NOTE | 2024-10-21 11:42 | SWNOTE1 ---
Sent PT note to Renuka at [facility] for updates.
--- NOTE | 2024-10-21 12:49 | SWNOTE1 ---
Sent OT note to Renuka at [facility].
--- NOTE | 2024-10-21 14:30 | SWNOTE1 ---
Renuka from [facility] called and the precert is still pending at this time.
--- NOTE | 2024-10-21 14:55 | SWNOTE1 ---
SW and I stopped in pt's room to let her know that we are still waiting on insurance to approve her to go to the [facility].
[2024-10-21] MEDS: BUMETANIDE 1 MG TABLET PO (21:51)
[2024-10-21] MEDS: MIRTAZAPINE 15 MG TABLET PO (21:51)
[2024-10-21] MEDS: ENSURE HP 237 ML LIQUID PO (21:51)
[2024-10-21] MEDS: TRAZODONE HCL 50 MG TABLET 25 MG PO (21:52)
[2024-10-22] VITALS (11 sets, daily range): BP systolic 97–110; BP diastolic 63–70; PULSE 66–81; TEMP 36.4–36.8; O2SAT 90–94
[2024-10-22 05:19] LABS: Basophils Percent Auto 0.2 % (0.2-2.0); Eosinophils Absolute Auto 0.2 10^3/uL (0.0-0.7); Eosinophils Percent Auto 2.1 % (0.9-7.0); Hematocrit 31.5 % (36.0-48.0); Hemoglobin 9.6 g/dL (12.0-16.0); Immature Granulocytes Abs Auto 0.19 10^3/uL (0.00-0.03); Immature Granulocytes Pct Auto 2.3 % (0.0-0.5); Lymphocytes Absolute Auto 1.3 10^3/uL (1.2-3.8); Lymphocytes Percent Auto 15.4 % (20.5-60.0); Mean Corpuscular HGB Conc 30.5 g/dL (29.9-35.2); Mean Corpuscular Hemoglobin 28.1 pg (26.7-34.0); Mean Corpuscular Volume 92.1 fL (81.0-99.0); Mean Platelet Volume 10.3 fL (9.5-13.5); Monocytes Absolute Auto 0.7 10^3/uL (0.3-0.8); Monocytes Percent Auto 8.8 % (1.7-12.0); Neutrophils Absolute Auto 5.9 10^3/uL (1.4-6.5); Neutrophils Percent Auto 71.2 % (43.0-75.0); Platelet Count 197 10^3/uL (150-450); Red Blood Count 3.42 10^6/uL (4.20-5.40); Red Cell Distribution Width 18.3 % (11.0-15.0); White Blood Count 8.3 10^3/uL (4.0-11.0)
[2024-10-22] MEDS: PANTOPRAZOLE SODIUM 40 MG TABLET.DR PO (05:32)
[2024-10-22 05:48] LABS: Anion Gap 6.4; BUN Creatinine Ratio 38.2; Carbon Dioxide 40.8 mmol/L (21.0-32.0); Chloride 104 mmol/L (98-107); Estimated GFR (African America >60 (>=60 mL/min/1.73m^2); Estimated GFR (Non-African Ame 56 (>=60 mL/min/1.73m^2); Glucose 85 mg/dL (74-106); Potassium 3.2 mmol/L (3.5-5.1); Sodium 148 mmol/L (136-145)
[2024-10-22 06:11] LABS: Troponin I High Sensitivity 451.2 pg/mL (4.0-51.3)
--- NOTE | 2024-10-22 06:16 | P.PN_ITS ---
Progress Note: Subjective Subjective Interval history: Patient awakens easily,, still with some shortness of breath but overall feels improved from previous day, denies chest pain, no chest pain the last 24 hours Exam Constitutional Vital Signs, click to edit/add: Last Vital Signs Temp 97.5 F L 10/22/24 04:00 Pulse 70 10/22/24 06:00 Resp 18 10/22/24 04:00 BP 110/70 10/22/24 04:00 Pulse Ox 90 L 10/22/24 04:00 O2 Del Method Nasal Cannula 10/22/24 04:00 O2 Flow Rate 1 10/22/24 04:00 FiO2 30 10/17/24 05:00 Progress Note: Objective Labs Labs: Short CBC 10/22/24 Range/Units 04:53 WBC 8.3 (4.0-11.0) 10^3/uL Hgb 9.6 L (12.0-16.0) g/dL Hct 31.5 L (36.0-48.0) % Plt Count 197 (150-450) 10^3/uL BMP 10/21/24 10/22/24 05:42 04:53 Sodium 150 H 148 H Potassium 3.0 L 3.2 L Chloride 106 104 Carbon Dioxide 38.1 H 40.8 H BUN 34.0 H 39.0 H Creatinine 0.85 1.02 Glucose 95 85 Calcium 8.7 9.0 Progress Note: A&P Assessment and Plan (1) Acute diastolic heart failure: (2) Cardiac murmur: (3) Elevated troponin: (4) Edema, peripheral: (5) Chronic obstructive pulmonary disease with (acute) exacerbation: (6) Acute hypoxic respiratory failure: (7) Brain mass: (8) Urinary tract infection: Qualifiers: Hematuria presence: without hematuria Urinary tract infection type: acute cystitis Qualified Code(s): N30.00 - Acute cystitis without hematuria (9) Muscle weakness: (10) Depression: (11) Sleep apnea: (12) Anxiety: (13) Hyperlipemia: (14) Hypertension: (15) Multiple sclerosis: (16) Bipolar 1 disorder: (17) Morbid obesity: (18) Severe protein-calorie malnutrition: (19) Hypertensive urgency: (20) Respiratory acidosis: (21) Iron deficiency anemia: (22) Acute combined systolic (congestive) and diastolic (congestive) heart failure: Plan Admission findings: Borderline fever, 99, sinus tachycardia, respiratory distress, uncontrolled hypertensive with hypertensive urgency leading to acute combined congestive heart failure and acute exacerbation of COPD with acute hypoxic respiratory failure requiring BiPAP ventilation Acute combined congestive heart failure leading to acute hypoxic respiratory failure requiring BiPAP ventilation with acute respiratory acidosis with compensatory metabolic alkalosis-g diuresis total of 17 L, with a net of 15, medically stable Severe sepsis with septic shock leading to acute NSTEMI type II-requiring Levophed-likely related to the urinary tract infection, due to Proteus mirabilis-sensitive to everything-stable Echocardiogram consistent with ventricular outflow tract obstruction, not great pictures-will need outpatient GAMALIEL for possible IHSS Acute exacerbation of the COPD-no respiratory distress-stable Hypertensive urgency-resolved Hyperglycemia in a nonfasting state-continue to follow Hypernatremia-slightly elevated today but overall stable can monitor as an outpatient Hyperglycemia-stable Severe protein calorie malnutrition with morbid obesity-maintain diet supplements Sleep apnea-hypoxia at at bedtime needs workup as an outpatient Acute blood loss anemia complicated by iron deficiency anemia-hemoglobin improved today, medically stable, workup as an outpatient positive Hemoccult Brain tumor-medically stable for rehab to continue progression for rehab for her brain surgery urinary tract infections due to Proteus mirabilis-maintain current antibiotics sensitive to everything, stable History of multiple sclerosis-patient does not feel she is having a flare Bipolar disorder-maintain home medications History of hyperlipidemia but not currently on medications we will hold off for now Admission status: Patient presented to the emergency room with acute hypoxic respiratory failure requiring BiPAP ventilation secondary to acute combined congestive heart failure complicated by acute exacerbation of COPD, medically necessary treatment will span 2 midnights inpatient status in the stepdown unit ? Urinary Catheter Management Urinary Catheter Management Urethral: Cath placed during this visit: yes, but has since been removed by the nurse Urethral indwelling: No Insertion date: 10/21/24 Insertion time: 13:45 Removal date: 10/20/24 Removal time: 16:58
--- NOTE | 2024-10-22 08:38 | CM.NOTE ---
Rounds made with Dr. Holguin, will change diuretics to oral today and repeat chest x-ray. Possible discharge later today to [facility] for skilled therapy. Pt verbalizes understanding of plan of care.
--- NOTE | 2024-10-22 08:50 | SWNOTE1 ---
OZZY received a message from Renuka at [facility] and pt is approved to go. OZZY messaged doctor and nurse.
--- NOTE | 2024-10-22 08:52 | CM.NOTE ---
2nd Important Message From Medicare discussed with pt, pt denies questions or concerns.
--- NOTE | 2024-10-22 08:56 | P.DS_ITS ---
DS: Providers Provider Date of admission: 10/17/24 07:05 Primary care physician: Kristin Gracia NP Consults: 10/17/24 08:24 Consult to Pharmacy Routine Consulting Provider: Reason for consultation: Please [place] me when Med Rec is Updated Has provider been notified: No Occupational Therapy Eval and Treat Routine Reason for consultation: Only if needed for Rehab Has provider been notified: No Physical Therapy Eval and Treat Routine Reason for consultation: Eval and Treat Has provider been notified: No 10/17/24 09:00 Occupational Therapy Eval and Treat Routine Reason for consultation: weakness Has provider been notified: No Physical Therapy Eval and Treat Routine Reason for consultation: Weakness Has provider been notified: No 10/19/24 06:34 Consult to Cardiology Routine Reason for consultation: NSTEMI Has provider been notified: No DS: Diagnosis Discharge Diagnosis (1) Acute diastolic heart failure: (2) Cardiac murmur: (3) Elevated troponin: (4) Edema, peripheral: (5) Chronic obstructive pulmonary disease with (acute) exacerbation: (6) Acute hypoxic respiratory failure: (7) Brain mass: (8) Urinary tract infection: Qualifiers: Hematuria presence: without hematuria Urinary tract infection type: acute cystitis Qualified Code(s): N30.00 - Acute cystitis without hematuria (9) Muscle weakness: (10) Depression: (11) Sleep apnea: (12) Anxiety: (13) Hyperlipemia: (14) Hypertension: (15) Multiple sclerosis: (16) Bipolar 1 disorder: (17) Morbid obesity: (18) Severe protein-calorie malnutrition: (19) Hypertensive urgency: (20) Respiratory acidosis: (21) Iron deficiency anemia: (22) Acute combined systolic (congestive) and diastolic (congestive) heart failure: Plan Admission findings: Borderline fever, 99, sinus tachycardia, respiratory distress, uncontrolled hypertensive with hypertensive urgency leading to acute combined congestive heart failure and acute exacerbation of COPD with acute h ypoxic respiratory failure requiring BiPAP ventilation Acute combined congestive heart failure leading to acute hypoxic respiratory failure requiring BiPAP ventilation with acute respiratory acidosis with compensatory metabolic alkalosis-g diuresis total of 17 L, with a net of 15, medically stable Severe sepsis with septic shock leading to acute NSTEMI type II-requiring Levophed-likely related to the urinary tract infection, due to Proteus mirabilis-sensitive to everything-stable Echocardiogram consistent with ventricular outflow tract obstruction, not great pictures-will need outpatient GAMALIEL for possible IHSS Acute exacerbation of the COPD-no respiratory distress-stable Hypertensive urgency-resolved Hyperglycemia in a nonfasting state-continue to follow Hypernatremia-slightly elevated today but overall stable can monitor as an outpatient Hyperglycemia-stable Severe protein calorie malnutrition with morbid obesity-maintain diet supplements Sleep apnea-hypoxia at at bedtime needs workup as an outpatient Acute blood loss anemia complicated by iron deficiency anemia-hemoglobin improved today, medically stable, workup as an outpatient positive Hemoccult Brain tumor-medically stable for rehab to continue progression for rehab for her brain surgery urinary tract infections due to Proteus mirabilis-maintain current antibiotics sensitive to everything, stable History of multiple sclerosis-patient does not feel she is having a flare Bipolar disorder-maintain home medications History of hyperlipidemia but not currently on medications we will hold off for now Admission status: Patient presented to the emergency room with acute hypoxic respiratory failure requiring BiPAP ventilation secondary to acute combined congestive heart failure complicated by acute exacerbation of COPD, medically necessary treatment will span 2 midnights inpatient status in the stepdown unit ? DS: Summary Status at Discharge Cognitive/behavioral status at discharge: Patient admitted with Admission findings: Borderline fever, 99, sinus tachycardia, respiratory distress, uncontrolled hypertensive with hypertensive urgency leading to acute combined congestive heart failure and acute exacerbation of COPD with acute hypoxic respiratory failure requiring BiPAP vent ilation. Given bolus dose of diuretics overnight without significant improvement, patient was given Bumex drip, she tolerated that well but above 14- 15 hrs. into her admission patient condition deteriorated significantly requiring Levophed for severe hypotension, and hypoxia. Patient is deemed to severe sepsis with septic shock requiring Levophed, antibiotics were started, broad-spectrum, started on hydrocortisone as well, blood pressures seem to slowly improve, following day She had the tachycardia hypoxia has resolved and blood pressure stabilized she was started on metoprolol for the tachycardia and given 1 dose of IV Bumex which she tolerated well, good urine output, medications were adjusted over the next several days for treating the septic shock, she is off was off the Levophed for several days now, excellent diuresis, she diuresed 17 L total, 15 that. Septic shock secondary to Proteus mirabilis urinary infection, likely pyelonephritis, kidney function remained stable her sodium is a little bit elevated but can be monitored as an outpatient she also had due to the severe sepsis with septic shock had a acute NSTEMI and troponins are trending down, the initial presentation of the acute combined congestive heart failure state now deemed secondary to sepsis with septic shock, BNP continues to improve, cardiac workup and recommendation by cardiology recommend outpatient workup for possible left ventricular outflow tract obstruction on echo although it is difficult to get pictures secondary to her morbid obesity. Over the last 72 hours patient has been stable from a blood pressure standpoint and laboratory standpoint, she is currently medically stable for discharge today. Lab results , vital signs are stable. Medically stable for discharge to rehab, follow-up with PCP at rehab, medications see list. Time Spent with Patient Time attestation: Total time spent providing and/or coordinating discharge services: Exam Constitutional Vital Signs, click to edit/add: Last Vital Signs Temp 98.3 F 10/22/24 08:16 Pulse 70 10/22/24 08:16 Resp 18 10/22/24 08:16 BP 97/66 10/22/24 08:16 Pulse Ox 91 L 10/22/24 08:16 O2 Del Method Nasal Cannula 10/22/24 08:16 O2 Flow Rate 1 10/22/24 08:16 FiO2 30 10/17/24 05:00 Documenting provider has reviewed patient's vital signs: yes Common normals: no apparent distress Chest Common normals: inspection of chest normal and palpation of chest normal Respiratory Common normals: normal respiratory effort and no retractions; not clear to ascultation bilaterally Auscultation: rales (minimal) Cardio Common normals: regular rate and regular rhythm Extremity Common normals: abnormal to inspection (1+edema - much improved) DS: Data Data Completed and Pending Labs on day of discharge: Labs from last 24 hours 10/22/24 04:53 WBC 8.3 RBC 3.42 L Hgb 9.6 L Hct 31.5 L MCV 92.1 MCH 28.1 MCHC 30.5 RDW 18.3 H Plt Count 197 MPV 10.3 Neut % (Auto) 71.2 Lymph % (Auto) 15.4 L Wilbarger % (Auto) 8.8 Eos % (Auto) 2.1 Baso % (Auto) 0.2 Neut # (Auto) 5.9 Lymph # (Auto) 1.3 Wilbarger # (Auto) 0.7 Eos # (Auto) 0.2 Baso # (Auto) 0.0 Abs Immat Gran (auto) 0.19 H Imm/Tot Granulo (auto) 2.3 H Sodium 148 H Potassium 3.2 L Chloride 104 Carbon Dioxide 40.8 H Anion Gap 6.4 BUN 39.0 H Creatinine 1.02 Est GFR ( Amer) >60 Est GFR (Non-Af Amer) 56 L BUN/Creatinine Ratio 38.2 Glucose 85 Calcium 9.0 Troponin I High Sens 451.2 H* NT-Pro-B Natriuret Pep 1268.0 H* Preliminary micro results at discharge 10/17/24 02:55 Blood Culture Result 2 - Preliminary Blood - Left Hand NO GROWTH AT 36-48 HOURS. FINAL TO FOLLOW. 10/17/24 02:47 Blood Culture Result 1 - Preliminary Blood - Right Antecubital NO GROWTH AT 36-48 HOURS. FINAL TO FOLLOW. Discharge Plan Discharge Disposition: Xfer [facility] Discharge Medications: New metoprolol succinate 100 mg Tablet Extended Release 24 Hr 100 mg PO QD Qty: 30 11RF levofloxacin 750 mg Tablet 750 mg PO QD Qty: 7 0RF zinc oxide [Diaper Rash] 40 % Ointment 1 applic topical QID PRN (Reason: Skin Irritation) Qty: 397 11RF Pro-Stat Sugar Free 15 gram- 100 kcal/30 mL Liquid In Packet 1 ea PO BID Qty: 2880 11RF bumetanide 1 mg tablet 1 mg PO DAILY Qty: 30 10RF Continued mirtazapine 15 mg tablet,disintegrating 15 mg PO HS sennosides-docusate sodium [Senna Plus] 8.6-50 mg tablet 2 tab-cap PO .QHS Rx Instructions: at bedtime acetaminophen [Tylenol] 325 mg tablet 650 mg PO Q6H PRN (Reason: pain) trazodone 50 mg tablet 25 mg PO HS levetiracetam 500 mg tablet 500 mg PO Q12H albuterol sulfate 2.5 mg /3 mL (0.083 %) solution for nebulization 2.5 mg inhalation Q4H PRN (Reason: shortness of breath or wheezing) Discontinued metoprolol tartrate 25 mg tablet 25 mg PO Q12H Print Language: Czech Forms: Portal Instructions
[2024-10-22] MEDS: ENOXAPARIN SODIUM 80 MG/0.8 ML SYRINGE SUBQ (09:12)
[2024-10-22] MEDS: ENSURE HP 237 ML LIQUID PO (09:12)
[2024-10-22] MEDS: PROSTAT 15 GM PROTEIN/100 CAL 30 ML LIQUID PACKET PO (09:12)
[2024-10-22] MEDS: ACETAMINOPHEN 500 MG TABLET 1000 MG PO (09:12)
[2024-10-22] MEDS: METOPROLOL SUCCINATE 100 MG TAB.ER.24H PO (09:13)
[2024-10-22] MEDS: POTASSIUM CHLORIDE 10 MEQ ER TABLET 20 MEQ PO (09:13)
[2024-10-22] MEDS: POTASSIUM CHLORIDE 40 MEQ in 0.9 % SODIUM CHLORIDE 250 ML 67.5 MEQ IV (09:13)
[2024-10-22] MEDS: LEVETIRACETAM 500 MG TABLET PO (09:13)
[2024-10-22] MEDS: BUMETANIDE 1 MG TABLET PO (09:13)
[2024-10-22] MEDS: LEVOFLOXACIN 750 MG TABLET PO (09:13)
--- NOTE | 2024-10-22 09:22 | REH.PTDLY ---
Physical Therapy Daily Note PT Daily Note/Assess Start: 10/17/24 09:42 Freq: Status: Active Protocol: Document 10/22/24 09:16 ADRIANA (Rec: 10/22/24 09:21 [id number] Physical Therapy Daily Note/Assessment Time In 07:48 Time Out 08:06 Subjective Pt awake upon arrival. No new complaints, going to [facility] pt states. Therapeutic Exercise 7 Minutes (minutes) Therapeutic Exercise 0 Units Therapeutic Exercise Instructed in seated B LE exs 10x ea with cues to count Treatment out loud as pt tends to only perform 4-6 before wanting to switch to another exercise. Therapeutic Activity 11 Minutes (minutes) Therapeutic Activity 1 Units Therapeutic Activity Pt requires Min A with supine to sit transfers. Sit to Comments stand transfers CGA from elevated bed. Gait training with RW and 1L of O2 42 feet CGA with fatigue and SOB noted. Pt's O2 ranges from 92-88% during rx. Pt has good safety awareness with reaching back for chair upon arrival. Sit to stand transfers from chair 3x in a row with fatigue noted. Total Therapy 18 Minutes Total Physical 1 Therapy Units Daily Note Summary Pt will benefit from rehab as she fatigues easily with short distance gait training and repetitive transfers. Pt denies any pain during rx. Pt is planning to go to [facility] at discharge if approved.
--- NOTE | 2024-10-22 11:51 | SWNOTE1 ---
Pt is ready for discharge to [facility]. We called [employer] for transportation and they can pick up truck driver between 3:15 and 3:45. OZZY printed dc med rec and dc summary and faxed to [facility]. OZZY notified nursing and [facility] of pick up truck driver time. OZZY completed HENS online. OZZY did talk to pt's son and notified him of pick up truck driver time.
== END 2024-10-22 15:28 | DRG 871 ==
LOC: ER 03:53 → MS 07:32
PROVIDERS: Registered Nurse; Admitting Provider Family Medicine; Emergency Provider Emergency Medicine; PCP Nurse Practitioner; Visit Provider Family Medicine
DX: A41.59 Other Gram-negative sepsis (principal); E43 Unspecified severe protein-calorie malnutrition; I50.41 Acute combined systolic (congestive) and diastolic (congestive) heart failure; J96.01 Acute respiratory failure with hypoxia; R65.21 Severe sepsis with septic shock; I21.A1 Myocardial infarction type 2; J44.1 Chronic obstructive pulmonary disease with (acute) exacerbation; N30.00 Acute cystitis without hematuria; E87.29 Other acidosis; E87.0 Hyperosmolality and hypernatremia; D62 Acute posthemorrhagic anemia; N12 Tubulo-interstitial nephritis, not specified as acute or chronic; Z68.41 Body mass index [BMI] 40.0-44.9, adult; G93.9 Disorder of brain, unspecified; M62.81 Muscle weakness (generalized); G47.30 Sleep apnea, unspecified; E78.5 Hyperlipidemia, unspecified; G35 Multiple sclerosis; I11.0 Hypertensive heart disease with heart failure; F31.9 Bipolar disorder, unspecified; E66.01 Morbid (severe) obesity due to excess calories; I16.0 Hypertensive urgency; D50.9 Iron deficiency anemia, unspecified; R01.1 Cardiac murmur, unspecified; R73.9 Hyperglycemia, unspecified; Z87.440 Personal history of urinary (tract) infections
CPT/HCPCS: 36415; 36600; 51702; 51798; 71045; 80048; 80053; 80076; 80162; 81001; 82800; 82805; 83605; 83735; 83880; 84436; 84443; 84484; 85025; 85610; 85730; 87040; 87070; 87086; 87088; 87186; 87205; 87420; 87804; 87811; 93005; 93306; 94660; 94667; 94668; 94761; 96374; 96375; 97110; 97161; 97165; 97530; 97535; 99291; 99292; G0328; J1160; J1644; J1650; J1720; J1938; J2543; J2919; J3480

== ENCOUNTER 2024-11-07 10:49 | Outpatient (REF) | payer MEDICARE, SELFPAY ==
--- OUTSIDE RECORDS SUMMARY | 2024-08-06 04:45 | XMS_ITS ---
Author Organization [facility] vices Address [address] [place], [place] [id number] Care Team Providers Care Teaching Fellow Name Role Phone Dian Salgado Unavailable [phone] REASON FOR VISIT Prophy (A)- 56 Medications Medication SIG (Take, Route, Frequency, Duration) Notes Start Date End Date Status Doxycycline Hyclate 100 MG Oral for 7 Days Active Escitalopram Oxalate 10 MG TAKE 1 TABLET BY MOUTH DAILY Oral for 30 Days Active busPIRone HCl 5 MG Oral for 30 Days Active Cetirizine HCl 10 MG TAKE 1 TABLET BY MO UTH DAILY Oral for 30 Days Active Fluticasone Propionate 50 MCG/ACT Nasal for 30 Days Active ARIPiprazole 10 MG TAKE 1 TABLET BY CASSANDRA TH DAILY Oral for 30 Days Active ARIPiprazole 10 MG Oral for 30 Days Active Escitalopram Oxalate 10 MG Oral for 30 Days Active busPIRone HCl 5 MG TAKE 1 TABLET BY CASSANDRA TH IN THE MORNING then TAKE 1 TABLET BY MOUTH IN THE EVENING then TAKE 1 TABLET BY MOUTH BEFORE bedtime Oral for 30 Days Active Doxycycline Hyclate 100 MG TAKE 1 CAPSUL E BY MOUTH IN THE MORNING tehn TAKE 1 CAPSULE BY MOUTH BEFORE bedtime Oral for 7 Days Active Social History Sex Assigned At : Social History Observation Description Sex Assigned At Female Encounters Encounter Location Date Provider Diagnosis [facility] [address] [place], [place] [id number] 08/06/2024 Dian Salgado Plan Of Treatment No Information Progress Notes * Yamilka VASQUEZDOB:1970 (54 yo F)Acc No.[id number]:08/06/2024 Patient: Yamilka BARRETO Provider: Maciej Salgado DDS :1970 A ge:54 Y S ex:Female Date:08/06/2024 Address:[facility] [address], [place], [id number] Subjective: * Chief Complaints: * 1 . Prophy (A)- 56. * Medical History: * Medications: T aking ARIPiprazole 10 MG Tablet Oral , Taking ARIPiprazole 10 MG Tablet TAKE 1 TABLET BY MOUTH DAILY Oral , Taking busPIRone HCl 5 MG Tablet TAKE 1 TABLET BY MOUTH IN THE MORNING then TAKE 1 TABLET BY MOUTH IN THE EVENING then TAKE 1 TABLET BY MOUTH BEFORE bedtime Oral , Taking Escitalopram Oxalate 10 MG Tablet Oral , Taking busPIRone HCl 5 MG Tablet Oral , Taking Escitalopram Oxalate 10 MG Tablet TAKE 1 TABLET BY MOUTH DAILY Oral , Taking Fluticasone Propionate 50 MCG/ACT Suspension Nasal , Taking Cetirizine HCl 10 MG Tablet TAKE 1 TABLET BY MOUTH DAILY Oral , Taking Doxycycline Hyclate 100 MG Capsule Oral , Taking Doxycycline Hyclate 100 MG Capsule TAKE 1 CAPSULE BY MOUTH IN THE MORNING tehn TAKE 1 CAPSULE BY MOUTH BEFORE bedtime Oral Objective: * Vitals: Assessment: Plan: * Treatment: * Billing Information: * Visit Code: * Procedure Codes: * Electronic signature of Lauren Salgado DDS on 11/07/2024 at 10:54 AM EDT Sign off status: Pending * Provider: Maciej Salgado DDS Date: 08/06/2024 Generated for Chrissy mireles/June/Bernadette on: 11/07/2024 10:54 AM EDT
--- OUTSIDE RECORDS SUMMARY | 2024-10-14 11:00 | XMS_ITS ---
Author Organization [facility] Address [address] [place] [address] [place] [address] Care Team Providers Care Clerk Of Works Name Role Phone Rio Ennis Primary Care Provider UnavailGlen Beatty Unavailable [phone] Encounters Encounter Location Date Provider Diagnosis [address] [address] 10/14/2024 Glen Delaney Plan Of Treatment No Information Progress Notes * Yamilka VASQUEZDOB:1970 (54 yo F)Acc No.[id number]:10/14/2024 Patient: Verena BRIGHTLeeSusanaYamilka Provider: Grzegorz Delaney DPM :1970 A ge:54 Y S ex:Female Date:10/14/2024 Address:[id number] Pcp:Rio Ennis Subjective: * Chief Complaints: * * Medical History: Objective: * Vitals: Assessment: Plan: * Treatment: * Images: * Electronic signature of [place] in VASYL Delaney on 11/07/2024 at 10:54 AM EDT Sign off status: Pending * Provider: Grzegorz Delaney DPM Date: 0 10/14/2024 Generated for Chrissy mireles/June/Magdaitting on: 0 11/07/2024 10:54 AM EDT
--- OUTSIDE RECORDS SUMMARY | 2024-10-19 05:15 | XMS_ITS ---
Author Organization [facility] vices Address [address] [place] [phone] Care Team Providers Care Adjunct Faculty For Medical Terminology Name Role Phone Dian Salgado Unavailable [phone] REASON FOR VISIT Rest #23-DIL and Prophy Social History Sex Assigned At : Social History Observation Description Sex Assigned At Female Encounters Encounter Location Date Provider Diagnosis [facility] [address] [place], [place] [phone] 10/19/2024 Dian Salgado Plan Of Treatment No Information Progress Notes * Yamilka VASQUEZDOB:1970 (54 yo F)Acc No.[id number]:10/19/2024 Patient: Yamilka BARRETO Provider: Maciej Salgado DDS :1970 A ge:54 Y S ex:Female Date:10/19/2024 Address:[address] , [address], [place], [id number] Subjective: * Chief Complaints: * 1 . Rest #23-DIL and Prophy. * Medical History: Objective: * Vitals: Assessment: Plan: * Treatment: * Billing Information: * Visit Code: * Procedure Codes: * Electronic signature of Lauren Salgado DDS on 11/07/2024 at 10:53 AM EDT Sign off status: Pending * Provider: Maciej Salgado DDS Date: 0 10/19/2024 Generated for Printi ng/Faxing/eTransmitting on: 0 11/07/2024 10:53 AM EDT
--- OUTSIDE RECORDS SUMMARY | 2024-10-26 05:15 | XMS_ITS ---
Author Organization [facility] Address [address] [place], [place] [id number] Care Team Providers Care Cigarette Machine Filler Name Role Phone Dian Salgado Unavailable [phone] REASON FOR VISIT Extraction #31 Social History Sex Assigned At : Social History Observation Description Sex Assigned At Female Encounters Encounter Location Date Provider Diagnosis [facility] [address] [place], [place] [id number] 10/26/2024 Dian Salgado Plan Of Treatment No Information Progress Notes * Yamilka VASQUEZDOB:1970 (54 yo F)Acc No.[id number]:10/26/2024 Patient: Yamilka BARRETO Provider: Maciej Salgado DDS :1970 A ge:54 Y S ex:Female Date:10/26/2024 Address:[address] , [address], [place], [id number] Subjective: * Chief Complaints: * 1 . Extraction #31. * Medical History: Objective: * Vitals: Assessment: Plan: * Treatment: * Billing Information: * Visit Code: * Procedure Codes: * Electronic signature of Lauren Salgado DDS on 11/07/2024 at 10:52 AM EDT Sign off status: Pending * Provider: Maciej Salgado DDS Date: 10/26/2024 Generated for Chrissy mireles/June/eTmunasmitting on: 11/07/2024 10:52 AM EDT
--- OUTSIDE RECORDS SUMMARY | 2024-11-07 10:52 | XMS_ITS | Encounter Summary ---
Author Organization [facility] Address [facility] [place] [address] Care Team Providers Care Marketing Project Lead Name Role Phone Kirk Wyatt Segundo Primary Care Provider Frances Hills (Rn) diorama model maker Provider Valdez Bhandari MD Primary Care Provider [phone] Dian Smith PA-C Unavailable [phone] Malinda Lopez APRN.FISHERIES BIOLOGIST Unavailable + [phone] Source Comments In the event this information is protected by the Federal Confidentiality of Alcohol and Drug AbusePatient Records regulations: The Federal rules restrict any use of the information to criminally investigate or prosecute any alcohol or drug abuse patient.[facility] Encounter Details Date Type Department Care Team (Late st Contact Info) Description 08/11/2015 Patient Msg Medical Records [address] [place] [address] Provider, [facility] CBC results Social History Tobacco Use Types Packs/Day Years Used Date Smoking Tobacco: Every Day Cigarettes 1 20 Comments:plans to try to fredy t at some point but not ready. Alcohol Use Standard Drinks/Week Comments Yes 0 (1 standard drink = 0.6 oz pur e alcohol) rare Comments No Sex and Gender Information Value Date Recorded Sex Assigned at Female 08/02/2020 9:22 AM EDT Legal Sex Female 10:06 AM EST Gender Identity Female 08/02/2020 9:22 AM EDT Sexual Orientation Straight 08/02/2020 9: 22 AM EDT documented as of this encounter Functional Status * Are you deaf or do you have serious difficulty hearing? Answer Date of Assessment Author No 10/29/2014 10:13 AM EDT Treasure Broussard MA * Are you blind or do you have serious difficulty seeing, even when wearing glasses? Answer Date of Assessment Author No 10/29/2014 10:13 AM EDT Treasure Broussard MA * Do you have serious difficulty walking or climbing stairs? Answer Date of Assessment Author No 10/29/2014 10:13 AM EDT Treasure Broussard MA * Do you have difficulty dressing or bathing? Answer Date of Assessment Author No 10/29/2014 10:13 AM EDT Treasure Broussard MA * Because of a physical, mental, or emotional condition, do you have difficulty doing errands alone such as visiting a doctor's office or shopping? Answer Date of Assessment Author No 10/29/2014 10:13 AM EDT Treasure Broussard MA documented as of this encounter Mental Status * Because of a physical, mental, or emotional condition, do you have serious difficulty concentrating, remembering, or making decisions? Answer Entry Date Author No 10/29/2014 10:13 AM EDT Treasure Broussard MA documented in this encounter Plan of Treatment Not on file documented as of this encounter Visit Diagnoses Not on filedocumented in this encounter Additional Health Concerns Infection Onset Date Last Indicated Resolved Time COVID-19 Rule-Out 08/06/2020 08/05/2020 08/26/2020 8:53 PM EDT documented as of this encounter Care Teams Marketing Project Lead Relationship Specialty Start Date End Date Wyatt Bradley PCP - General Internal Medicine 05/21/12 12/05/17 Frances Hills (Rn), MOE PCP - General 12/06/17 10/31/20 Valdez Acosta MD [address] [place] [address] PCP - General Internal Medicine 11/01/20 Dian Smith PA-C [address] [place], [place] [id number] Paper [facility]eter Internal Medicine 04/26/24 05/21/24 Malinda Lopez, JANITORIAL SERVICES SUPERVISOR.[facility] [address] [place] [phone] Paper [facility]eter Family Medicine 04/26/24 documented as of this encounter
--- OUTSIDE RECORDS SUMMARY | 2024-11-07 10:52 | XMS_ITS | Encounter Summary ---
Author Organization [facility] Address [facility] [place] [address] Care Team Providers Care Tree Surgeon Name Role Phone Kirk Wyatt Segundo Primary Care Provider Frances Hills (Rn) optometrist president/practice owner Provider Valdez Bhandari MD Primary Care Provider [phone] Dian Smith PA-C Unavailable [phone] Malinda Lopez APRN.TRAY DRIER OPERATOR Unavailable + [phone] Source Comments In the event this information is protected by the Federal Confidentiality of Alcohol and Drug AbusePatient Records regulations: The Federal rules restrict any use of the information to criminally investigate or prosecute any alcohol or drug abuse patient.[facility] Encounter Details Date Type Department Care Team (Late st Contact Info) Description 05/27/2014 Patient Msg Medical Records [address] [place] [address] Provider, [facility] Research Invitation Social History Tobacco Use Types Packs/Day Years [...] AM EDT documented as of this encounter Plan of Treatment Not on file documented as of this encounter Visit Diagnoses Not on filedocumented in this encounter Additional Health Concerns Infection Onset Date Last Indicated Resolved Time COVID-19 Rule-Out 08/06/2020 08/05/2020 08/26/2020 8:53 PM EDT documented as of this encounter Care Teams Tree Surgeon Relationship Specialty Start Date End Date Wyatt Bradley PCP - General Internal Medicine 05/21/12 12/05/17 Frances Hills (Rn), RN PCP - General 12/06/17 10/31/20 Valdez Acosta MD [address] [place] [address] PCP - General Internal Medicine 11/01/20 Dian Smith PA-C [address] [place] [id number] Linux Kernel Developer Internal Medicine 04/26/24 05/21/24 Malinda Lopez, TOY DEPARTMENT MANAGER.TRAY DRIER OPERATOR [address] [place] [id number] Linux Kernel Developer Family Medicine 04/26/24 documented as of this encounter
--- OUTSIDE RECORDS SUMMARY | 2024-11-07 10:52 | XMS_ITS | Clinical Summary ---
Author Organization [facility] Address [address] [place] [address] Care Team Providers Care Senior Net Web Developer Name Role Phone Valdez Acosta MD Primary Care Provider [phone] Malinda Lopez APRN.CERTIFIED ADAPTIVE PHYSICAL EDUCATOR Unavailable [phone] Allergies No known active allergies Medications * This document contains information received from the source organization and may not represent a complete record from that organization. multivitamin tablet Take 1 tablet by mouth once daily. Active amitriptyline (ELAVIL) 50 mg tablet Take 25-50 mg qhs 1 Active Additional Information Patient taking differently: 10 mg 2 TIMES DAILY, Take 25-50 mg qhs, Reason: Dosage Adjustment, Reported on 07/10/2023 ocrelizumab (OCREVUS INTRAVENOUS) Inject 600 mg intravenously once every 6 months. Active albuterol HFA (PROVENTIL HFA, VENTOLIN HFA) 90 mcg/actuation inhaler INHALE 2 PUFFS BY MOUTH EVERY 6 HOURS NEEDED FOR WHEEZING FOR SHORTNESS OF BREATH 4 Active FLUoxetine (PROZAC) 20 mg capsule Daily 2 Active ocrelizumab (OCREVUS) 30 mg/mL soln injection 10 mL. 2 Active Cholecalcifero l, Vitamin D3, (VITAMIN D) 25 mcg (1,000 unit) cap Take 1,000 Units by mouth once daily. Active cyanocobalamin (VITAMIN B-12) 1,000 mcg tab Take 1,000 mcg by mouth once daily. Active Active Problems Problem Noted Date Diagnosed Date Research exam 11/27/2012 Adjustment disorder with mixed anxiety and depre ssed mood 10/02/2012 Multiple sclerosis 10/02/2012 Immunizations Immunization Administration Dates Next Due COVID-19 vaccine (TAMELA) 07/28/2020 influenza (HD-IIV3) vaccine, age 65+ yr, high dose, trivalent, PF (FLUZONE HIGH-DOSE) 03/19/2015,04/27/2014 influenza (IIV4) vaccine, ag e 6 mo - 64 yr, quadrivalent, PF (AFLURIA, FLUARIX, FLULAVAL, FLUZONE) 04/08/2020,03/20/2019,06/05/2018,02/27,04/03/2016 pneumococcal polysaccharide (PPV23) vaccine, 23 valent (PNEUMOVAX 23) 10/02/2016 tetanus diphtheria pertussis (Tdap) vaccine, age 7+ yr (ADACEL, BOOSTRIX) 10/02/2016 Family History Medical History Relation Comments Diabetes Brother 1 Diabetes Brother 2 Alcohol abuse Brother 3 heavy smoker Alcohol abuse Brother 4 Cancer Brother 6 unsure what kind Accidental Brother 7 lung disease Brother 8 heavy smoker No Known Problems Daughter Cancer Father colon? Heart Father Thyroid Maternal Grandmother Arthritis Mother rheumatoid. Cataract Mother Hypertension Mother Stroke Mother Thyroid Mother None Other no ms Cataract Sister 1 Diabetes Sister 1 Diabetes Sister 2 heavy smoker Sister 2 No Known Problems Son Relation Status Comments Brother 1 Alive Brother 2 Alive Brother 3 Brother 4 Brother 5 Brother 6 Alive Brother 7 Brother 8 Brother 9 Daughter Alive Father (Age 66) cancer,emphays hang Maternal Grandfather (Age 76) car accid ent Maternal Grandmother (Age 81) Mother Other Paternal Grandfather (Age 78) cancer Paternal Grandmother (Age 29) child bir th Sister 1 Alive 60/asthma,diabet es Sister 2 Sister 3 Alive Son Alive Social History Tobacco Use Types Packs/Day Years Used Date Smoking Tobacco: Former Cigarettes 1 20 0 12/13/1996 - 12/13/2016 Smokeless Tobacco: Never Tobacco Cessation:Counseling Given: Not Answered Comments:plans to try to quit at some point but not ready. Alcohol Use Standard Drinks/Week Comments Yes 0 (1 standard drink = 0.6 oz pur e alcohol) rare Social Connection and Isolation Panel [NHANES] A nswer Date Recorded In a typical week, how many times do you talk on the phone with family, friends, or neighbors? Once a week 08/02/2020 How often do you get together with friends or re latives? Never 08/02/2020 How often do you attend scientology or lutheran serv ices? Never 08/02/2020 Do you belong to any clubs o r organizations such as scientology groups, unions, fraternal or athletic groups, or school groups? No 08/02/2020 How often do you attend meet ings of the clubs or organizations you belong to? Never 08/02/2020 Are you , , di vorced, , never , or living with a partner? 08/02/2020 AUDIT-C Answer Date Recorded Q1: How often do you have a drink containing alc ohol? Monthly or less 08/02/2020 Q2: How many drinks containi ng alcohol do you have on a typical day when you are drinking? 5 or 6 08/02/2020 Q3: How often do you have si x or more drinks on one occasion? Less than monthly 08/02/2020 Overall Financial Resource Strain (CARDIA) Answe r Date Recorded How hard is it for you to pa y for the very basics like food, housing, medical care, and heating? Not very hard 08/02/2020 PHQ-2 Answer Date Recorded PHQ-2 score 5 09/05/2023 [facility] - Occupational Stress Questionnaire Answer Date Recorded Do you feel stress - tense, restless, nervous, or anxious, or unable to sleep at night because your mind is troubled all the time - these days? Very much 08/02/2020 Exercise Vital Sign Answer Date Recorde d On average, how many days pe r week do you engage in moderate to strenuous exercise (like a brisk walk)? 0 days 08/02/2020 On average, how many minutes do you engage in exercise at this level? 0 min 08/02/2020 Hunger Vital Sign Answer Date Recorded Within the past 12 months, y ou worried that your food would run out before you got the money to buy more. Sometimes true Within the past 12 months, t he food you bought just didn't last and you didn't have money to get more. Sometimes true PRAPARE - Transportation Answer Date Re corded In the past 12 months, has l ack of transportation kept you from medical appointments or from getting medications? No 07/18 In the past 12 months, has l ack of transportation kept you from meetings, work, or from getting things needed for daily living? No 08/02/2020 Housing Stability Vital Sign Answer Vamsi e Recorded In the last 12 months, was t here a time when you were not able to pay the mortgage or rent on time? No 08/02/2020 In the last 12 months, how many places have you lived? 1 08/02/2020 In the last 12 months, was t here a time when you did not have a steady place to sleep or slept in a retirement (including now)? No 08/02/2020 Area Deprivation Index Answer Date Chris rded National Score (1-100), lower number is lower ri sk 63 09/20/2022 State Score (1-10), lower number is lower risk 4 09/20/2022 Data from: https://www.neighborhoodatlas.medicine.[facility].edu/. Last address used for calculation [address] 09/20/2022 Education Answer Date Recorded What is the highest level of school you have completed or the highest degree you have received? 8th grade 08/02/2020 Comments No Sex and Gender Information Value Date Recorded Sex Assigned at Female 08/02/2020 9:22 AM EDT Legal Sex Female 10:06 AM EST Gender Identity Female 08/02/2020 9:22 AM EDT Sexual Orientation Straight 08/02/2020 9: 22 AM EDT Last Filed Vital Signs Vital Sign Reading Time Taken Comments Blood Pressure 140/74 05/22/2023 11:40 AM EST Pulse 89 07/10/2023 3:53 PM EST Temperature 36.1 C (97 F) 05/22/2023 7:30 AM EST Respiratory Rate 18 05/22/2023 7:30 AM EST Oxygen Saturation 97% 07/10/2023 3:53 PM EST Inhaled Oxygen Concentration - - Weight 134.3 kg (296 lb) 07/10/2023 3:53 PM EST Height 167.6 cm (5' 6 ) 07/10/2023 3:53 PM EST Body Mass Index 47.78 07/10/2023 3:53 PM EST Plan of Treatment Health Maintenance Due Date Last Done Comments Anxiety Screening 1986 Depression Screening 1986 HIV Screening 1986 Hepatitis B Vaccine (1 of 3 - 19+ 3-dose series) 1987 Cervical Cancer Screening [address] Colonography 2013 Cologuard (FIT-DNA) 2013 Colonoscopy 2013 Colorectal Cancer Screening 2013 Fecal Occult Blood 2013 Sigmoidoscopy 2013 Pneumococcal Vaccine: 50+ (2 of 2 - PCV) 2018 10/02/2016 Shingrix Vaccine (1 of 2) 2018 Covid-19 Vaccine (4 - 2023-2 5 season) 2024 05/29/2022, 05/18/2021, 07/28/2020 Medicare Advantage Annual We llness Visit 05/20/2024 Influenza Vaccine (Season Ended) 2025 05/02/2023, 04/30/2023, 03/07/2022, Additional history exists Diabetes Screening 05/22/2026 05/22/2023, 0 09/18/2021, 11/08/2020, Additional history exists Lipid Screening 09/18/2026 09/18/2021, 10/19, 07/15/2020 DTaP,Tdap,Td Vaccine (2 - Td or Tdap) 10/02/2026 10/02/2016 Hepatitis C Screening Completed 07/15/2020, 013 Procedures Procedure Name Priority Date/Time Associated Diagnosis Comments COMPREHENSIVE METABOLIC PANEL Routine 05/22/2023 8:10 AM EST Multiple sclerosis, relapsing-remittin g (HCC) LIPID PANEL, FASTING Routine 09/18/2021 8:07 AM EDT Multiple sclerosis, relapsing-remittin g (HCC) *HEP C AB Routine 07/15/2020 11:23 AM EST Multiple sclerosis (HCC) from Last 3 Months or Most Recently Relevant to Health Maintenance Results * (ABNORMAL) COMP METABOLIC PANEL (05/22/2023 8:10 AM EST) Protein, Total 7.1 6.3 - 8.0 g/dL 05/22/2023 2:38 PM EST [facility] Albumin 4.0 3.9 - 4.9 g/dL 05/22/2023 2:38 PM EST [facility] Calcium, Total 9.4 8.5 - 10.2 mg/dL 05/22/2023 2:38 PM EST [facility] Bilirubin, Total 0.3 0.2 - 1.3 mg/dL 05/22/2023 2:38 PM EST [facility] Alkaline Phosphatase 90 34 - 123 U/L 05/22/2023 2:38 PM EST [facility] AST 25 13 - 35 U/L 05/22/2023 2:38 PM EST [facility] ALT 23 7 - 38 U/L 05/22/2023 2:38 PM EST [facility] Glucose 88 74 - 99 mg/dL 05/22/2023 2:38 PM EST [facility] Comment: The [place] Diabetes Association (ADA) provides guidance for cutoff [...] Standards of Medical Care in Diabetes 2016, [place] Diabetes Association. Diabetes Care. 2016.39(Suppl 1). BUN 17 7 - 21 mg/dL 05/22/2023 2:38 PM EST [facility] Creatinine 1.04(H) 0.58 - 0.96 mg/dL 05/22/2023 2:38 PM EST [facility] Sodium 143 136 - 144 mmol/L 05/22/2023 2:38 PM EST [facility] Potassium 3.7 3.7 - 5.1 mmol/L 05/22/2023 2:38 PM [facility] Chloride 103 97 - 105 mmol/L 05/22/2023 2:38 PM EST [facility] CO2 27 22 - 30 mmol/L 05/22/2023 2:38 PM EST [facility] Anion Gap 13 9 - 18 mmol/L 05/22/2023 2:38 PM EST [facility] Estimated Glomerular Filtration Rate 64 >=60 mL/min/1. 73m 05/22/2023 2:38 PM EST [facility] Comment:Estimated Glomerular Filtration Rate (eGFR) is calculated using the 2020 CKD-EPI creatinine equation. This equation utilizes serum creatinine, sex, and age as parameters. The creatinine assay has traceable calibration to isotope dilution- mass spectrometry. Refer to KDIGO guidelines for clinical interpretation. In patients with unstable renal function, e.g. those with acute kidney injury, the eGFR may not accurately reflect actual GFR. Blood BLOOD SPECIMEN / Unknown Venipuncture / Unknown 05/22/2023 8:10 AM EST 05/22/2023 8:43 AM EST us Aylin Garrison PA-C LABORATORY Final Result [facility] [address] [place] [address], * (ABNORMAL) LIPID PANEL BASIC (09/18/2021 8:07 AM EDT) [facility] Cholesterol, Total 142 <200 mg/dL 09/18/2021 4:40 PM EDT [facility] Comment: <200 mg/dL, Desirable 200-239 mg/dL, Borderline high >239 mg/dL, High Triglyceride 157(H) <150 mg/dL 09/18/2021 4:40 PM EDT [facility] Comment: <150 mg/dL, Normal 150-199 mg/dL, Borderline high 200-499 mg/dL, High >499 mg/dL, Very high HDL Cholesterol 39(L) >39 mg/dL 4:40 PM T [facility] Comment: 40-59 mg/dL, Acceptable >59 mg/dL, High: Negative risk factor for coronary heart disease <40 mg/dL, Low: Positive risk factor for coronary heart disease Non HDL Cholesterol 103 <130 mg/dL 09/18/2021 4:40 PM EDT [facility] Comment: <130 mg/dL, Optimal 130-159 mg/dL, Near optimal/above optimal 160-189 mg/dL, Borderline high 190-219 mg/dL, High >219 mg/dL, Very high Secondary prevention optimal non HDL Cholesterol levels are recommended to be <100 mg/dL Fasting Time 14 hours hrs 09/18/2021 4:40 PM T [facility] VLDL Cholesterol 31(H) <30 mg/dL 09/19/19 4:40 PM EDT [facility] TC:HDL Ratio 3.64 <5.10 09/18/2021 4:40 PM T [facility] LDL Cholesterol, Calculated 72 <100 mg/dL 09/18/2021 4:40 PM T [facility] Comment: <100 mg/dL, Optimal 100-129 mg/dL, Near optimal/above optimal 130-159 mg/dL, Borderline high 160-189 mg/dL, High >189 mg/dL, Very high Secondary prevention optimal LDL Cholesterol levels are recommended to be < 70 mg/dL LDL:HDL Ratio 1.85 <2.54 09/18/2021 4:40 PM T [facility] Comment: Reference: 1. National Cholesterol Education Program ATP III Guideline At-A-Glance Quick Desk Reference: National Heart, Lung, and Blood [place]. National Institutes of Health. 2001: NIH Publication No. 01-3305. 2. An International Atherosclerosis Society position paper: global recommendations for the management of dyslipidemia: executive summary, Atherosclerosis. 2014: 232(2):410-413. Blood BLOOD SPECIMEN / Unknown Venipuncture / Unknown 09/18/2021 8:07 AM EDT 09/18/2021 3:12 PM EDT us Aylin Garrison PA-C LABORATORY Final Result [facility] [address] [facility] [address] [place] [address], * HEP REMOTE PANEL BL (07/15/2020 11:23 AM EST) Hep B Core Ab, Total Negative Negative 07/15/2020 7:02 PM EST [facility] Hep C Antibody IA Negative Negative 07/15/2020 7:03 PM EST [facility] HBsAg Negative Negative 07/15/2020 7:03 PM EST [facility] Hep B Surface Ab, Qual Negative Negative 07/15/2020 7:03 PM EST [facility] Comment:NEGATIVE Blood BLOOD SPECIMEN / Unknown 07/15/2020 11:23 AM EST 07/15/2020 11:25 AM EST Prosper Zheng MD, PhD LABORATORY Final Resu lt [facility] [address] [facility] [place] [address] [facility] [address] [place] [address] from Last 3 Months or Most Recently Relevant to Health Maintenance [place] [place] [address] MEDICARE PPO Care Teams Senior Net Web Developer Relationship Specialty Start Date End Date Valdez Acosta MD [address] [place] [address] PCP - General Internal Medicine 11/01/20 Malinda Lopez, PUBLIC HEALTH EPIDEMIOLOGIST.[facility] [address] [place] [address] Burner Operator Family Medicine 04/26/24
--- OUTSIDE RECORDS SUMMARY | 2024-11-07 10:52 | XMS_ITS | Encounter Summary ---
Author Organization [facility] Address [address] [place] [address] Care Team Providers Care Glass Vial Filler Name Role Phone Valdez Acosta MD Primary Care Provider [phone] Dian Smith PA-C Unavailable [phone] Malinda Lopez APRN.MANAGEMENT SPECIALIST Unavailable + [phone] Source Comments In the event this information is protected by the Federal Confidentiality of Alcohol and Drug AbusePatient Records regulations: The Federal rules restrict any use of the information to criminally investigate or prosecute any alcohol or drug abuse patient.[facility] Encounter Details Date Type Department Care Team (Late st Contact Info) Description 11/06/2020 Patient Msg MRI J [address] [place] [address] Provider, Ccf MRI Screening Social History Tobacco Use Types Packs/Day Years Used Date Smoking Tobacco: Former Cigarettes 1 20 0 12/13/1996 - 12/13/2016 Smokeless Tobacco: Never Comments:plans to try to fredy t at [...] Never 08/02/2020 How often do you attend latter-day or bahai serv ices? Never 08/02/2020 Do you belong to any clubs o r organizations such as latter-day groups, unions, fraternal or athletic groups, or [...] PHQ-2 Answer Date Recorded PHQ-2 score 5 10/30/2020 [facility] of Occupat ional Health - Occupational Stress Questionnaire Answer Date Recorded [...] place to sleep or slept in a snf (including now)? No 08/02/2020 Area Deprivation Index Answer Date Chris rded National Score (1-100), lower number is lower ri sk Not on file 04/27/2020 State Score (1-10), lower number is lower risk N ot on file 04/27/2020 Data from: https://www.neighborhoodatlas.medicine.[facility].edu/. Last address used for calculation Not on file 04/27/2020 Education Answer Date Recorded What is the highest level of school you have completed or the highest degree you have received? 8th grade 08/02/2020 Comments No Sex and Gender Information Value Date Recorded Sex Assigned at Female 08/02/2020 9:22 AM EDT Legal Sex Female 10:06 AM EST Gender Identity Female 08/02/2020 9:22 AM EDT Sexual Orientation Straight 08/02/2020 9: 22 AM EDT COVID-19 Exposure Response Date Recorded In the last month, have you been in contact with someone who was confirmed or suspected to have Coronavirus / COVID-19? No / Unsure 11/08/2020 9:30 AM EDT documented as of this encounter [...] of Assessment Author No 10/29/2014 10:13 AM Treasure Reina MA * Do you have difficulty dressing or bathing? Answer Date of Assessment Author No 10/29/2014 10:13 AM EDT Treasure Broussard MA * Because of a physical, mental, or emotional condition, do you have difficulty doing errands alone such as visiting a doctor's office or shopping? Answer Date of Assessment Author No 10/29/2014 10:13 AM Treasure Reina MA documented as of this encounter Mental Status * Because of a physical, mental, or emotional condition, do you have serious difficulty concentrating, remembering, or making decisions? Answer Entry Date Author No 10/29/2014 10:13 AM Treasure Reina MA documented in this encounter Plan of Treatment Not on file documented as of this encounter Visit Diagnoses Not on filedocumented in this encounter Care Teams Glass Vial Filler Relationship Specialty Start Date End Date Valdez Acosta MD [address] [place] [address] PCP - General Internal Medicine 11/01/20 Dian Smith PA-C [address] [place] [address] Avionics Installer Internal Medicine 04/26/24 05/21/24 Malinda Lopez APRN.MANAGEMENT SPECIALIST [address] [place] [id number] Avionics Installer Family Medicine 04/26/24 documented as of this encounter
--- OUTSIDE RECORDS SUMMARY | 2024-11-07 10:52 | XMS_ITS | Encounter Summary ---
Author Organization [facility] Address [facility] [place] [address] Care Team Providers Care Ambulance Driver Name Role Phone Frances [place] (Rn) financial services associate Provider Valdez Bhandari MD Primary Care Provider [phone]- [phone] Dian Smith PA-C Unavailable [phone] Malinda Lopez APRN.[facility] Unavailable + [phone] Source Comments In the event this information is protected by the Federal Confidentiality of Alcohol and Drug AbusePatient Records regulations: The Federal rules restrict any use of the information to criminally investigate or prosecute any alcohol or drug abuse patient.[facility] Encounter Details Date Type Department Care Team (Late st Contact Info) Description 09/15/2020 [facility] [address] [place] [address] Aylin Garrison PA-C [address] [place] [id number] RE: Non-Urgent Medical Question Social History Tobacco Use Types Packs/Day Years [...] Never 08/02/2020 How often do you attend uatsdin or rastafari serv ices? Never 08/02/2020 Do you belong to any clubs o r organizations such as uatsdin groups, unions, fraternal or athletic groups, or [...] 08/02/2020 PHQ-2 Answer Date Recorded PHQ-2 score 3 08/02/2020 [facility] of Occupat ional Health - Occupational Stress [...] place to sleep or slept in a custodial (including now)? No 08/02/2020 Area Deprivation Index Answer Date Chris rded National Score (1-100), lower number is lower ri sk Not on file 04/27/2020 State Score (1-10), lower number is lower risk N ot on file 04/27/2020 Data from: https://www.neighborhoodatlas.medicine.[facility].edu/. Last address used for calculation Not on [...] have Coronavirus / COVID-19? No / Unsure 08/29/2020 7:47 AM EDT documented as of this encounter [...] on filedocumented in this encounter Care Teams Ambulance Driver Relationship Specialty Start Date End Date Reinier August (Rn), RN PCP - General 12/06/17 10/31/20 Valdez Acosta MD [address] [place] [address] PCP - General Internal Medicine 11/01/20 Dian Smith PA-C [facility] [place] [address] Silver Steward Internal Medicine 04/26/24 05/21/24 Malinda Lopez, CONSTRUCTION SKILLS TEACHER.DRY HOUSE ATTENDANT [address] [place] [address] Silver Steward Family Medicine 04/26/24 documented as of this encounter
--- OUTSIDE RECORDS SUMMARY | 2024-11-07 10:52 | XMS_ITS | Encounter Summary ---
Author Organization [facility] Address [address] [place] [address] Care Team Providers Care Metal Buffer Name Role Phone Valdez Acosta MD Primary Care Provider [phone] Dian Smith PA-C Unavailable [phone] Malinda Lopez APRN.BRADLEY LINEBACKER CREWMEMBER Unavailable + [phone] Source Comments In the event this information is protected by the Federal Confidentiality of Alcohol and Drug AbusePatient Records regulations: The Federal rules restrict any use of the information to criminally investigate or prosecute any alcohol or drug abuse patient.[facility] Encounter Details Date Type Department Care Team (Late st Contact Info) Description 11/08/2020 [facility] [address] [id number] Lanie Lombardi APRN.BRADLEY LINEBACKER CREWMEMBER [address] [address] RE: Test Result Question Social History Tobacco Use Types Packs/Day [...] Never 08/02/2020 How often do you attend holiness or latter-day serv ices? Never 08/02/2020 Do you belong to any clubs o r organizations such as holiness groups, unions, fraternal [...] Answer Date Recorded PHQ-2 score 5 10/30/2020 [facility] of Occupat ional Health - Occupational Stress [...] place to sleep or slept in a fdc (including now)? No 08/02/2020 Area Deprivation Index Answer Date Chris rded National Score (1-100), lower number is lower ri sk Not on file 04/27/2020 State Score (1-10), lower number is lower risk N ot on file 04/27/2020 Data from: https://www.neighborhoodatlas.medicine.[facility].edu/. Last address used for calculation Not on [...] 10/29/2014 10:13 AM Treasure Reina MA * Are you blind or do you have serious difficulty seeing, even when wearing glasses? Answer Date of Assessment Author No 10/29/2014 10:13 AM Treasure Reina MA * Do you have serious difficulty walking or climbing stairs? Answer Date of Assessment Author No 10/29/2014 10:13 AM Treasure Reina MA * Do you have difficulty dressing or bathing? Answer Date of Assessment Author No 10/29/2014 10:13 AM Treasure Reina MA * Because of a physical, mental, [...] on filedocumented in this encounter Care Teams Metal Buffer Relationship Specialty Start Date End Date Valdez Acosta MD [address] [place] [address] PCP - General Internal Medicine 11/01/20 Dian Smith PA-C [address] [place] [id number] Workforce Services Representative Internal Medicine 04/26/24 05/21/24 Malinda Lopez APRN.BRADLEY LINEBACKER CREWMEMBER [address] [place] [phone] Workforce Services Representative Family Medicine 04/26/24 documented as of this encounter
--- OUTSIDE RECORDS SUMMARY | 2024-11-07 10:52 | XMS_ITS | Encounter Summary ---
Author Organization [facility] Address [facility] [place] [address] Care Team Providers Care Occupational Health And Safety Adviser Name Role Phone Frances Hills (Rn) community health program coordinator Provider Valdez Bhandari MD Primary Care Provider [phone]- [phone] Dian Smith PA-C Unavailable + [phone] Malinda Lopez APRN.[facility] Unavailable + [phone] Source Comments In the event this information is protected by the Federal Confidentiality of Alcohol and Drug AbusePatient Records regulations: The Federal rules restrict any use of the information to criminally investigate or prosecute any alcohol or drug abuse patient.[facility] Encounter Details Date Type Department Care Team (Late st Contact Info) Description 10/19/2020 [facility] [address] [place] [address] Aylin Garrison PA-C [address] [place] [address] RE: Non-Urgent Medical Question Social History [...] Never 08/02/2020 How often do you attend adventism or jehovah's witness serv ices? Never 08/02/2020 Do you belong to any clubs o r organizations such as adventism groups, unions, fraternal or athletic groups, or [...] Answer Date Recorded PHQ-2 score 3 08/02/2020 [facility] of Occupat ional Health - Occupational Stress [...] place to sleep or slept in a senior living (including now)? No 08/02/2020 Area Deprivation Index Answer Date Chris rded National Score (1-100), lower number is lower ri sk Not on file 04/27/2020 State Score (1-10), lower number is lower risk N ot on file 04/27/2020 Data from: https://www.neighborhoodatlas.medicine.[facility].edu/. Last address used for calculation Not on [...] on filedocumented in this encounter Care Teams Occupational Health And Safety Adviser Relationship Specialty Start Date End Date ReinierAugust (Rn), RN PCP - General 12/06/17 10/31/20 Valdez Acosta MD [address] [place] [address] PCP - General Internal Medicine 11/01/20 Dian Smith PA-C [address] [place] [address] Backend Python Developer Internal Medicine 04/26/24 05/21/24 Malinda Lopez APRN.CATALYST IMPREGNATOR [address] [place] [address] Backend Python Developer Family Medicine 04/26/24 documented as of this encounter
--- OUTSIDE RECORDS SUMMARY | 2024-11-07 10:52 | XMS_ITS | Clinical Summary ---
Author Organization [facility] Address [address] [place] [address] Phone Care Team Providers Care Front Desk Attendant Name Role Phone Unavailable Primary Care Provider Unavailabl e Social History Tobacco Use Types Packs/Day Years Used Date Smoking Tobacco: Never Assessed Comments Unknown Sex and Gender Information Value Date Recorded Sex Assigned at Not on file Legal Sex Unknown 04/07/2024 1:48 PM EST Gender Identity Not on file Sexual Orientation Not on file Plan of Treatment Health Maintenance Due Date Last Done Comments CT Colonography 1968 Colonoscopy 1968 Colorectal Cancer Screening 1968 FIT-DNA (Cologuard) 1968 FIT 1968 HIV Screening 1968 Lipid Panel 1968 Sigmoidoscopy 1968 Yearly Adult Physical 1968 MMR Vaccines (1 of 1 - Stand todd series) 1969 Hepatitis C Screening 1986 Hepatitis B Vaccines (1 of 3 - 19+ 3-dose series) 1987 Cervical Cancer Screening 1989 HPV/Cotest 1989 Pap Smear 1989 DTaP/Tdap/Td Vaccines (1 - Tdap) 1990 Mammogram 2008 Pneumococcal Vaccine (1 of 1 - PCV) 2018 Zoster Vaccines (1 of 2) 2018 COVID-19 Vaccine ( - 2023-2 5 season) 2024 Influenza Vaccine (Season Ended) 2025 HIB Vaccines Aged Out No longer eligi ble based on patient's age to complete this topic HPV Vaccines Aged Out No longer eligi ble based on patient's age to complete this topic Hepatitis A Vaccines Aged Out No long er eligible based on patient's age to complete this topic IPV Vaccines Aged Out No longer eligi ble based on patient's age to complete this topic Meningococcal Vaccine Aged Out No lashawn masha eligible based on patient's age to complete this topic Rotavirus Vaccines Aged Out No longer eligible based on patient's age to complete this topic Insurance GENERIC COMMERCIAL on file GENERIC COMMERCIAL on file
--- OUTSIDE RECORDS SUMMARY | 2024-11-07 10:52 | XMS_ITS | Encounter Summary ---
Author Organization [facility] Address [facility] [place] [address] Care Team Providers Care Part Maker Name Role Phone Frances Hills (Rn) nail artist Provider Valdez Bhandari MD Primary Care Provider [phone] Dian Smith PA-C Unavailable [phone] Malinda Lopez APRN.[facility] Unavailable + [phone] Source Comments In the event this information is protected by the Federal Confidentiality of Alcohol and Drug AbusePatient Records regulations: The Federal rules restrict any use of the information to criminally investigate or prosecute any alcohol or drug abuse patient.[facility] Encounter Details Date Type Department Care Team (Late st Contact Info) Description 09/08/2020 [facility] [address] [place] [address] Aylin Garrison PA-C [address] [place] [address] RE: Non-Urgent Medical Question Social History [...] Never 08/02/2020 How often do you attend congregational or protestant serv ices? Never 08/02/2020 Do you belong to any clubs o r organizations such as congregational groups, unions, fraternal or athletic groups, or [...] Answer Date Recorded PHQ-2 score 3 08/02/2020 [facility] [place] of Occupat ional Health - Occupational Stress [...] N ot on file 04/27/2020 Data from: https://www.neighborhoodatlas.medicine.[facility].edu/. Last address used for calculation Not [...] on filedocumented in this encounter Care Teams Part Maker Relationship Specialty Start Date End Date Reinier August (Rn), RN PCP - General 12/06/17 10/31/20 Valdez Acosta MD [address] [place] [address] PCP - General Internal Medicine 11/01/20 Dian Smith PA-C [facility] [place] [address] Swimming Pool Attendant Internal Medicine 04/26/24 05/21/24 Malinda Lopez, PROPOSAL ANALYST.STEAM SETTER [address] [place] [address] Swimming Pool Attendant Family Medicine 04/26/24 documented as of this encounter
--- OUTSIDE RECORDS SUMMARY | 2024-11-07 10:52 | XMS_ITS | Encounter Summary ---
Author Organization [facility] Address [facility] [place] [address] Care Team Providers Care Sheet Taker Name Role Phone Frances Hills (Rn) head irrigator Provider Valdez Bhandari MD Primary Care Provider [phone]- [phone] Dian Smith PA-C Unavailable + [phone] Malinda Lopez APRN.[facility] Unavailable + [phone] Source Comments In the event this information is protected by the Federal Confidentiality of Alcohol and Drug AbusePatient Records regulations: The Federal rules restrict any use of the information to criminally investigate or prosecute any alcohol or drug abuse patient.[facility] Encounter Details Date Type Department Care Team (Late st Contact Info) Description 08/03/2020 [facility] [address] [place] [address] Aylin Garrison PA-C [address] [place] [address] RE: Non-Urgent Medical Question Social History [...] Never 08/02/2020 How often do you attend jainism or oriental orthodox serv ices? Never 08/02/2020 Do you belong to any clubs o r organizations such as jainism groups, unions, fraternal or athletic groups, or [...] Answer Date Recorded PHQ-2 score 3 08/02/2020 [facility] [place] of Occupat ional Health - Occupational Stress [...] place to sleep or slept in a correction (including now)? No 08/02/2020 Area Deprivation Index Answer Date Chris rded National Score (1-100), lower number is lower ri sk Not on file 04/27/2020 State Score (1-10), lower number is lower risk N ot on file 04/27/2020 Data from: https://www.neighborhoodatlas.medicine.[facility].edu/. Last address used for calculation Not on [...] have Coronavirus / COVID-19? No / Unsure 08/04/2020 3:39 PM EDT documented as of this encounter Functional [...] documented as of this encounter Care Teams Sheet Taker Relationship Specialty Start Date End Date August (Rn), RN PCP - General 12/06/17 10/31/20 Valdez Acosta MD [address] [place] [address] PCP - General Internal Medicine 11/01/20 Dian Smith PA-C [address] [place] [address] Advertising Photographer Internal Medicine 04/26/24 05/21/24 Malinda Lopez, METAL CASKET MAKER.CHIEF GROWTH OFFICER [address] [place], [place] [address] [place] [address] Advertising Photographer Family Medicine 04/26/24 documented as of this encounter
--- OUTSIDE RECORDS SUMMARY | 2024-11-07 10:52 | XMS_ITS | Encounter Summary ---
Author Organization [facility] Address [address] [place] [address] Phone Care Team Providers Care Detective And Intelligence Analyst Name Role Phone Unavailable Primary Care Provider Unavailabl e Encounter Details Date Type Department Care Team (Late st Contact Info) Description 02/05/2024 Scanned Document [facility] [address] [place] [id number] Scanning, Generic Provider Social History Tobacco Use Types Packs/Day Years Used Date Smoking Tobacco: Never Assessed Comments Unknown Sex and Gender Information Value Date Recorded Sex Assigned at Not on file Legal Sex Unknown 04/07/2024 1:48 PM EST Gender Identity Not on file Sexual Orientation Not on file documented as of this encounter Plan of Treatment Not on file documented as of this encounter Visit Diagnoses Not on filedocumented in this encounter
--- OUTSIDE RECORDS SUMMARY | 2024-11-07 10:52 | XMS_ITS | Encounter Summary ---
Author Organization [facility] Address [facility] [place] [address] Care Team Providers Care Medical Sociologist Name Role Phone Kirk Wyatt Segundo Primary Care Provider Frances Hills (Rn) chef concierge Provider Valdez Bhandari MD Primary Care Provider [phone] Dian Smith PA-C Unavailable + [phone] Malinda Lopez APRN.OFFSET PRESS OPERATOR Unavailable + [phone] Source Comments In the event this information is protected by the Federal Confidentiality of Alcohol and Drug AbusePatient Records regulations: The Federal rules restrict any use of the information to criminally investigate or prosecute any alcohol or drug abuse patient.[facility] Encounter Details Date Type Department Care Team (Late st Contact Info) Description 03/03/2014 Patient Msg Medical Records [address] [place] [address] Provider, Ccf labs and office visit Social History Tobacco Use Types Packs/Day Years [...] documented as of this encounter Care Teams Medical Sociologist Relationship Specialty Start Date End Date Wyatt Bradley PCP - General Internal Medicine 05/21/12 12/05/17 Frances Hills (Rn), RN PCP - General 12/06/17 10/31/20 Valdez Acosta MD [address] [place] [address] PCP - General Internal Medicine 11/01/20 Dian Smith PA-C [address] [place] [address] Geological Aide Internal Medicine 04/26/24 05/21/24 Malinda Lopez, AUTHORIZATION COORDINATOR.OFFSET PRESS OPERATOR [address] [place] [address] Geological Aide Family Medicine 04/26/24 documented as of this encounter
--- OUTSIDE RECORDS SUMMARY | 2024-11-07 10:52 | XMS_ITS | Encounter Summary ---
Author Organization [facility] Address [facility] [place] [address] Care Team Providers Care Puzzle Assembler Name Role Phone Frances Hills (Rn) electrical journeyman Provider Valdez Bhandari MD Primary Care Provider [phone]- [phone] Dian Smith PA-C Unavailable + [phone] Malinda Lopez APRN.[facility] Unavailable + [phone] Source Comments In the event this information is protected by the Federal Confidentiality of Alcohol and Drug AbusePatient Records regulations: The Federal rules restrict any use of the information to criminally investigate or prosecute any alcohol or drug abuse patient.[facility] Encounter Details Date Type Department Care Team (Late st Contact Info) Description 08/03/2020 [facility] [address] [place] [address] Aylin Garrison PA-C [address] [place] [address] RE: Non-Urgent Medical Question Social History [...] Never 08/02/2020 How often do you attend episcopalian or oriental orthodox serv ices? Never 08/02/2020 Do you belong to any clubs o r organizations such as episcopalian groups, unions, fraternal or athletic groups, or [...] Answer Date Recorded PHQ-2 score 3 08/02/2020 [facility] [place] of Occupat ional Health - Occupational Stress [...] place to sleep or slept in a detention (including now)? No 08/02/2020 Area Deprivation Index Answer Date Chris rded National Score (1-100), lower number is lower ri sk Not on file 04/27/2020 State Score (1-10), lower number is lower risk N ot on file 04/27/2020 Data from: https://www.neighborhoodatlas.medicine.[facility].edu/. Last address used for calculation Not [...] documented as of this encounter Care Teams Puzzle Assembler Relationship Specialty Start Date End Date August (Rn), RN PCP - General 12/06/17 10/31/20 Valdez Acosta MD [address] [place] [address] PCP - General Internal Medicine 11/01/20 Dian Smith PA-C [address] [place] [address] Supervisor Engine Assembly Internal Medicine 04/26/24 05/21/24 Malinda Lopez, LEGAL INVESTIGATOR.BLAST FURNACE SUPERVISOR [address] [place], [place] [address] [place] [address] Supervisor Engine Assembly Family Medicine 04/26/24 documented as of this encounter
--- OUTSIDE RECORDS SUMMARY | 2024-11-07 10:53 | XMS_ITS | Patient Health Record ---
Author Organization [facility] Address [address] [place] [address] [place] [address] Care Team Providers Care Nursing Clinical Director Name Role Phone Rio Ennis Primary Care Provider UnavailGlen Beatty Unavailable [phone] Reason For Referral No Information Encounters Encounter Location Date Provider Diagnosis [facility] [address] [place] [address] 10/14/2024 Glen Delaney Plan Of Treatment No Information Insurance Providers Payer Name Payer Address Payer Phone Subscriber Number Group Number Insured Name Patient Relationship to Insured Coverage Start Date Coverage End Date [facility] [address] [address] [place] [address] [id number] Yamilka Yates Self - patient is the insured
--- OUTSIDE RECORDS SUMMARY | 2024-11-07 10:53 | XMS_ITS | Encounter Summary ---
Author Organization [facility] Address [address] [place] [address] Care Team Providers Care Residential Direct Support Professional Name Role Phone Kristin Gracia AREA DIRECTOR Unavailable [phone] Maxim Lanza MD Primary Care Provider [phone] Encounter Details Date Type Department Care Team (Late st Contact Info) Description 10/08/2024 Abstract [facility] [address] [place] [address] Maxim Lanza MD [address] [place] [id number] Social History Tobacco Use Types Packs/Day Years Used Date Smoking Tobacco: Former Cigarettes Q uit: 12/29/2015 Passive Smoke Exposure: Past Smokeless Tobacco: Never Alcohol Use Standard Drinks/Week Comments Not Currently 0 (1 standard drink = 0.6 oz pure alcohol) tea and coffee 1-2 cups per day Humiliation, Afraid, Rape, and Kick questionnair e Answer Date Recorded Within the last year, have y ou been afraid of your partner or ex-partner? No 06/04/2023 Within the last year, have y ou been humiliated or emotionally abused in other ways by your partner or ex-partner? No Within the last year, have y ou been kicked, hit, slapped, or otherwise physically hurt by your partner or ex-partner? No 06/04/2023 Within the last year, have y ou been raped or forced to have any kind of sexual activity by your partner or ex-partner? No 06/04/2023 Social Connection and Isolation Panel [NHANES] A nswer Date Recorded In a typical week, how many times do you talk on the phone with family, friends, or neighbors? Twice a week 06/04/19 24 How often do you get togethe r with friends or relatives? Once a week 06/04/2023 How often do you attend chur or sikhism services? 1 to 4 times per year 06/04/2023 Do you belong to any clubs o r organizations such as buddhist groups, unions, fraternal or athletic groups, or school groups? No 06/04/2023 How often do you attend meet ings of the clubs or organizations you belong to? Never 06/04/2023 Are you , , di vorced, , never , or living with a partner? 06/04/2023 AUDIT-C Answer Date Recorded Q1: How often do you have a drink containing alc ohol? Monthly or less 06/04/2023 Q2: How many drinks containi ng alcohol do you have on a typical day when you are drinking? 3 or 4 06/04/2023 Q3: How often do you have si x or more drinks on one occasion? Less than monthly 06/04/2023 Overall Financial Resource Strain (CARDIA) Answe r Date Recorded How hard is it for you to pa y for the very basics like food, housing, medical care, and heating? Very hard 06/04/2023 PHQ-2 Answer Date Recorded Patient Health Questionnaire-2 Score 6 05/18/2024 [facility] of Occupat ional Health - Occupational Stress Questionnaire Answer Date Recorded Do you feel stress - tense, restless, nervous, or anxious, or unable to sleep at night because your mind is troubled all the time - these days? Only a little 06/04/2023 Exercise Vital Sign Answer Date Recorde d On average, how many days pe r week do you engage in moderate to strenuous exercise (like a brisk walk)? 4 days 06/04/2023 On average, how many minutes do you engage in exercise at this level? 40 min 06/04/2023 Hunger Vital Sign Answer Date Recorded Within the past 12 months, y ou worried that your food would run out before you got the money to buy more. Often true 06/04/19 24 Within the past 12 months, t he food you bought just didn't last and you didn't have money to get more. Often true 06/04/2023 PRAPARE - Transportation Answer Date Re corded In the past 12 months, has l ack of transportation kept you from medical appointments or from getting medications? Yes 05/20 In the past 12 months, has l ack of transportation kept you from meetings, work, or from getting things needed for daily living? No 06/04/2023 Housing Stability Vital Sign Answer Vamsi e Recorded In the last 12 months, was t here a time when you were not able to pay the mortgage or rent on time? Yes 06/04/2023 In the last 12 months, how many places have you lived? 1 06/04/2023 In the last 12 months, was t here a time when you did not have a steady place to sleep or slept in a fpc (including now)? No 06/04/2023 Comments Unknown Sex and Gender Information Value Date Recorded Sex Assigned at Female 04/29/2023 4:00 PM EST Legal Sex Female 7:10 PM EDT Gender Identity Female 04/29/2023 4:00 PM EST Sexual Orientation Asexual 06/04/2023 10 :08 PM EST documented as of this encounter Plan of Treatment Not on file documented as of this encounter Visit Diagnoses Not on filedocumented in this encounter Additional Health Concerns Assessment Noted Time PHQ-9 Depression Total Score: 18 05/18/ 024 9:00 AM EST documented as of this encounter Care Teams Residential Direct Support Professional Relationship Specialty Start Date End Date Maxim Lanza MD [address] [place] [address] PCP - General Family Medicine 07/15/23 Kristin Gracia NP [address] [place] [address] Primary Care Provider Family Medicine 05/20/22 documented as of this encounter
--- OUTSIDE RECORDS SUMMARY | 2024-11-07 10:53 | XMS_ITS | Encounter Summary ---
Author Organization [facility] Address [facility] [place] [address] Care Team Providers Care Embossing Press Operator Apprentice Name Role Phone Valdez Acosta MD Primary Care Provider [phone] Dian Smith PA-C Unavailable [phone] Malinda Lopez CORNETIST.AIR CREW MEMBER Unavailable + [phone] Source Comments In the event this information is protected by the Federal Confidentiality of Alcohol and Drug AbusePatient Records regulations: The Federal rules restrict any use of the information to criminally investigate or prosecute any alcohol or drug abuse patient.[facility] Encounter Details Date Type Department Care Team (Late st Contact Info) Description 06/13/2021 Patient [facility] [address] [place], [place] [id number] Gi Khan APRN.AIR CREW MEMBER [address] [place] [address] tc Social History Tobacco Use Types Packs/Day Years [...] Never 08/02/2020 How often do you attend mormon or protestant serv ices? Never 08/02/2020 Do you belong to any clubs o r organizations such as mormon groups, unions, fraternal or athletic groups, or [...] Answer Date Recorded PHQ-2 score 5 10/30/2020 [facility] of Occupat ional Health - Occupational Stress [...] place to sleep or slept in a intermediate (including now)? No 08/02/2020 Area Deprivation Index Answer Date Chris rded National Score (1-100), lower number is lower ri sk Not on file 04/27/2020 State Score (1-10), lower number is lower risk N ot on file 04/27/2020 Data from: https://www.neighborhoodatlas.medicine.[facility].edu/. Last address used for calculation Not on [...] on filedocumented in this encounter Care Teams Embossing Press Operator Apprentice Relationship Specialty Start Date End Date Valdez Acosta MD [address] [place] [address] PCP - General Internal Medicine 11/01/20 Dian Smith PA-C [address] [place] [address] Candy Spreader Helper Internal Medicine 04/26/24 05/21/24 Malinda Lopez APRN.AIR CREW MEMBER [address] [place] [address] Candy Spreader Helper Family Medicine 04/26/24 documented as of this encounter
--- OUTSIDE RECORDS SUMMARY | 2024-11-07 10:53 | XMS_ITS | Encounter Summary ---
Author Organization [facility] Address [address] [place] [address] Care Team Providers Care Relationship Management Lead Name Role Phone Kristin Gracia SWAT TEAM MEMBER Unavailable [phone] Maxim Lanza MD Primary Care Provider Encounter Details Date Type Department Care Team (Late st Contact Info) Description 10/20/2024 Abstract [facility] [address] [place] [address] Kristin Gracia NP [address] [place] [phone] Social History Tobacco Use Types Packs/Day Years [...] How often do you attend chur or rastafarian services? 1 to 4 times per year 06/04/2023 Do you belong to any clubs o r organizations such as yazdanism groups, unions, fraternal or athletic groups, or [...] Recorded Patient Health Questionnaire-2 Score 6 05/18/2024 [facility] of Occupat ional Health - [...] place to sleep or slept in a long term (including now)? No 06/04/2023 Comments Unknown Sex [...] documented as of this encounter Care Teams Relationship Management Lead Relationship Specialty Start Date End Date Maxim Lanza MD [address] [place] [address] PCP - General Family Medicine 07/15/23 Kristin Gracia NP [address] [place] [address] Primary Care Provider Family Medicine 05/20/22 documented as of this encounter
--- OUTSIDE RECORDS SUMMARY | 2024-11-07 10:53 | XMS_ITS | Encounter Summary ---
Author Organization [facility] Address [facility] [place] [address] Care Team Providers Care Statistical Methods Teacher Name Role Phone Valdez Acosta MD Primary Care Provider [phone] Dian Smith PA-C Unavailable + [phone] Malinda Lopez APRN.DRYWALL INSTALLER Unavailable + [phone] Source Comments In the event this information is protected by the Federal Confidentiality of Alcohol and Drug AbusePatient Records regulations: The Federal rules restrict any use of the information to criminally investigate or prosecute any alcohol or drug abuse patient.[facility] Encounter Details Date Type Department Care Team (Late st Contact Info) Description 04/22/2021 Patient Msg Neurology [address] [id number] Provider, Ccf Appointment with Aylin Garrison Social History Tobacco Use Types Packs/Day Years [...] Never 08/02/2020 How often do you attend yazidism or quaker serv ices? Never 08/02/2020 Do you belong to any clubs o r organizations such as yazidism groups, unions, fraternal or athletic groups, or [...] Answer Date Recorded PHQ-2 score 5 10/30/2020 [facility] - Occupational Stress Questionnaire Answer Date [...] slept in a fpc (including now)? No 08/02/2020 Area Deprivation Index Answer Date Chris rded National Score (1-100), lower number is lower ri sk Not on file 04/27/2020 State Score (1-10), lower number is lower risk N ot on file 04/27/2020 Data from: https://www.neighborhoodatlas.medicine.[facility].edu/. Last address used for calculation Not [...] have Coronavirus / COVID-19? No / Unsure 03/27/2021 11:59 AM EST documented as of this encounter Functional Status [...] on filedocumented in this encounter Care Teams Statistical Methods Teacher Relationship Specialty Start Date End Date Valdez Acosta MD [address] [place] [address] PCP - General Internal Medicine 11/01/20 Dian Smith PA-C [address] [place] [address] Sandwich Peddler Internal Medicine 04/26/24 05/21/24 Malinda Lopez APRN.DRYWALL INSTALLER [address] [place] [address] Sandwich Peddler Family Medicine 04/26/24 documented as of this encounter
--- OUTSIDE RECORDS SUMMARY | 2024-11-07 10:53 | XMS_ITS | Encounter Summary ---
Author Organization [facility] Address [address] [place] [address] Care Team Providers Care Lead Informatica Developer Name Role Phone Valdez Acosta MD Primary Care Provider [phone] Dian Smith PA-C Unavailable + [phone] Malinda Lopez APRN.[facility] Unavailable + [phone] Source Comments In the event this information is protected by the Federal Confidentiality of Alcohol and Drug AbusePatient Records regulations: The Federal rules restrict any use of the information to criminally investigate or prosecute any alcohol or drug abuse patient.[facility] Encounter Details Date Type Department Care Team (Late st Contact Info) Description 02/20/2022 Patient Msg Neuropyschology [address] [place] [address] Leslie Dailey, PhD [address] [place] [address] Appointment Cancellation Request Social History Tobacco Use Types Packs/Day Years [...] Never 08/02/2020 How often do you attend spiritism or restorationist serv ices? Never 08/02/2020 Do you belong to any clubs o r organizations such as spiritism groups, unions, fraternal or athletic groups, or [...] PHQ-2 Answer Date Recorded PHQ-2 score 5 09/15/2021 [facility]at ional [facility] - Occupational Stress [...] place to sleep or slept in a group home (including now)? No 08/02/2020 Area Deprivation Index Answer Date Chris rded National Score (1-100), lower number is lower ri sk 60 11/14/2021 State Score (1-10), lower number is lower risk N ot on file 11/14/2021 Data from: https://www.neighborhoodatlas.medicine.[facility].edu/. Last address used for calculation [address] 11/14/2021 Education Answer Date Recorded What is the [...] on filedocumented in this encounter Care Teams Lead Informatica Developer Relationship Specialty Start Date End Date Valdez Acosta MD [address] [place] [address] PCP - General Internal Medicine 11/01/20 Dian Smith PA-C [address] [place] [address] Textiles Sales Representative Internal Medicine 04/26/24 05/21/24 Malinda Lopez APRN.NUCLEAR REACTOR OPERATOR [address] [place] [address] Textiles Sales Representative Family Medicine 04/26/24 documented as of this encounter
--- OUTSIDE RECORDS SUMMARY | 2024-11-07 10:53 | XMS_ITS | Encounter Summary ---
Author Organization [facility] Address [address] [place] [address] Care Team Providers Care Front End Web Designer Name Role Phone Valdez Acosta MD Primary Care Provider [phone] Dian Smith PA-C Unavailable + [phone] Malinda Lopez APRN.[facility] Unavailable + [phone] Source Comments In the event this information is protected by the Federal Confidentiality of Alcohol and Drug AbusePatient Records regulations: The Federal rules restrict any use of the information to criminally investigate or prosecute any alcohol or drug abuse patient.[facility] Encounter Details Date Type Department Care Team (Late st Contact Info) Description 06/10/2023 [facility] [address] [place], [place] [phone] Aylin Garrison PA-C [address] [place] [address] Bulging disc Social History Tobacco Use Types Packs/Day Years [...] Never 08/02/2020 How often do you attend oriental orthodox or restoration serv ices? Never 08/02/2020 Do you belong to any clubs o r organizations such as oriental orthodox groups, unions, fraternal or athletic groups, or [...] 08/02/2020 PHQ-2 Answer Date Recorded PHQ-2 score 1 05/01/2023 [facility]at ional [facility] - Occupational Stress [...] place to sleep or slept in a nursing home (including now)? No 08/02/2020 Area Deprivation Index Answer Date Chris rded National Score (1-100), lower number is lower ri sk 63 09/20/2022 State Score (1-10), lower number is lower risk 4 09/20/2022 Data from: https://www.neighborhoodatlas.medicine.[facility].edu/. Last address used for calculation [address] [...] Treasure Reina MA documented in this encounter Miscellaneous Notes * Telephone Encounter - Malinda Victoria RN - 06/10/2023 2:26 PM EST Called [facility] at [phone], spoke with sales solutions representative who is pushing over MRI Cervical Spine Images from 05-09-2023 to [facility] via [employer]. Routing to Aylin Garrison PA-C. Gabriel Victoria RN documented in this encounter Plan of Treatment Not on file documented as of this encounter Visit Diagnoses Not on filedocumented in this encounter Care Teams Front End Web Designer Relationship Specialty Start Date End Date Valdez Acosta MD [address] [place] [address] PCP - General Internal Medicine 11/01/20 Dian Smith PA-C [address] [place] [address] [phone] Sanitation Technician Internal Medicine 04/26/24 05/21/24 Malinda Lopez, DEPUTY SHERIFF GENERALIST.APPLIED PSYCHOLOGY CHAIR [address] [place] [address] [phone] Sanitation Technician Family Medicine 04/26/24 documented as of this encounter
--- OUTSIDE RECORDS SUMMARY | 2024-11-07 10:53 | XMS_ITS | Encounter Summary ---
Author Organization [facility] Address [address] [place] [address] Care Team Providers Care Air Crew Officer Name Role Phone Kristin Gracia ROAD ADVISOR Unavailable [phone] Maxim Lanza MD Primary Care Provider Maxim Lanza MD Primary Care Provider Encounter Details Date Type Department Care Team (Late st Contact Info) Description 05/09/2023 [facility] [address] [place] [id number] Kritsin Gracia NP [address] [place] [address] Social History Tobacco Use Types Packs/Day Years Used Date Smoking Tobacco: Former Cigarettes Q uit: 12/29/2015 Smokeless Tobacco: Never Alcohol Use Standard Drinks/Week Comments Not Currently 0 (1 standard drink = 0.6 oz pure alcohol) tea and coffee 1-2 cups per day Humiliation, Afraid, Rape, and Kick questionnair e Answer Date Recorded Within the last year, have y ou been afraid of your partner or ex-partner? No 05/01/2023 Within the last year, have y ou been humiliated or emotionally abused in other ways by your partner or ex-partner? No Within the last year, have y ou been kicked, hit, slapped, or otherwise physically hurt by your partner or ex-partner? No 05/01/2023 Within the last year, have y ou been raped or forced to have any kind of sexual activity by your partner or ex-partner? No 05/01/2023 Social Connection and Isolat ion Panel [NHANES] Answer Date Recorded In a typical week, how many times do you talk on the phone with family, friends, or neighbors? More than three times a week 05/01/2023 How often do you get togethe r with friends or relatives? Once a week 05/01/2023 How often do you attend chur or zoroastrian services? Never 05/01/2023 Do you belong to any clubs o r organizations such as holiness groups, unions, fraternal or athletic groups, or school groups? Yes 05/01/2023 How often do you attend meet ings of the clubs or organizations you belong to? Never 05/01/2023 Are you , , di vorced, , never , or living with a partner? 05/01/2023 AUDIT-C Answer Date Recorded Q1: How often do you have a drink containing alcohol? Never 05/01/2023 Q2: How many drinks containi ng alcohol do you have on a typical day when you are drinking? Patient does not drink Q3: How often do you have si x or more drinks on one occasion? Never 05/01/2023 Overall Financial Resource Strain (CARDIA) Answe r Date Recorded How hard is it for you to pa y for the very basics like food, housing, medical care, and heating? Not very hard 05/01/2023 PHQ-2 Answer Date Recorded Patient Health Questionnaire-2 Score 2 05/01/2023 [facility] of Occupat ional Health - Occupational Stress Questionnaire Answer Date Recorded Do you feel stress - tense, restless, nervous, or anxious, or unable to sleep at night because your mind is troubled all the time - these days? To some extent 05/01/2023 Exercise Vital Sign Answer Date Recorde d On average, how many days pe r week do you engage in moderate to strenuous exercise (like a brisk walk)? 5 days 05/01/2023 On average, how many minutes do you engage in exercise at this level? 60 min 05/01/2023 Hunger Vital Sign Answer Date Recorded Within the past 12 months, y ou worried that your food would run out before you got the money to buy more. Never true 05/01/20 Within the past 12 months, t he food you bought just didn't last and you didn't have money to get more. Never true 05/01/2023 PRAPARE - Transportation Answer Date Re corded In the past 12 months, has l ack of transportation kept you from medical appointments or from getting medications? No 04/19 In the past 12 months, has l ack of transportation kept you from meetings, work, or from getting things needed for daily living? No 05/01/2023 Housing Stability Vital Sign Answer Vamsi e Recorded In the last 12 months, was t here a time when you were not able to pay the mortgage or rent on time? No 05/01/2023 In the last 12 months, how many places have you lived? 1 05/01/2023 In the last 12 months, was t here a time when you did not have a steady place to sleep or slept in a snf (including now)? No 05/01/2023 Comments Unknown Sex and Gender Information Value [...] Assessment Noted Time PHQ-9 Depression Total Score: 4 05/01/20 8:13 AM EST documented as of this encounter Care Teams Air Crew Officer Relationship Specialty Start Date End Date Maxim Lanza MD [address] [place] [address] PCP - General Family Medicine 04/22/23 07/14/23 Maxim Lanza MD [address] [place] [address] PCP - General Family Medicine 07/15/23 Kristin Gracia NP [address] [place] [address] Primary Care Provider Family Medicine 05/20/22 documented as of this encounter
--- OUTSIDE RECORDS SUMMARY | 2024-11-07 10:53 | XMS_ITS | Encounter Summary ---
Author Organization [facility] Address [address] [place] [address] Care Team Providers Care Tobacco Cloth Reclaimer Name Role Phone Kirk Wyatt Segundo Primary Care Provider Frances Hills (Rn) cardiac cath rn Provider Valdez Bhandari MD Primary Care Provider [phone] Dian Smith PA-C Unavailable + [phone] Malinda Lopez APRN.GASOLINE TRACTOR OPERATOR Unavailable + [phone] Source Comments In the event this information is protected by the Federal Confidentiality of Alcohol and Drug AbusePatient Records regulations: The Federal rules restrict any use of the information to criminally investigate or prosecute any alcohol or drug abuse patient.[facility] Reason for Visit * Reason Comments Medication Preauthorization tecfidera Encounter Details Date Type Department Care Team (Late st Contact Info) Description 07/13/[address] [facility] [place] [address] [address] [place] [address] [place] [address] Medication Preauthorization (tecfidera) Social History Tobacco Use Types Packs/Day Years Used Date Smoking Tobacco: Every Day Cigarettes 1 20 Smokeless Tobacco: Never Comments:plans to try to [...] documented as of this encounter Care Teams Tobacco Cloth Reclaimer Relationship Specialty Start Date End Date Wyatt Bradley PCP - General Internal Medicine 05/21/12 12/05/17 Frances Hills (Rn), RN PCP - General 12/06/17 10/31/20 Valdez Acosta MD [address] [place] [address] PCP - General Internal Medicine 11/01/20 Dian Smith PA-C [facility] [place] [address] Feed Preparation Operator Internal Medicine 04/26/24 05/21/24 Malinda Lopez, CASINO BANKER.[facility] [address] [place] [address] Feed Preparation Operator Family Medicine 04/26/24 documented as of this encounter
--- OUTSIDE RECORDS SUMMARY | 2024-11-07 10:53 | XMS_ITS | Encounter Summary ---
Author Organization [facility] Address [address] [place] [address] Care Team Providers Care Design Engineer Marine Equipment Name Role Phone Bonitaruby Kristin GREASE AND TALLOW PUMPER Unavailable [phone] Maxim Lanza MD Primary Care Provider [phone] Encounter Details Date Type Department Care Team (Late st Contact Info) Description 10/28/2024 Patient Outreach [facility] [address] [place] [address] Dian Guerin MA Social History Tobacco Use Types Packs/Day Years [...] friends, or neighbors? Twice a week 06/04/19 How often do you get togethe r with friends or relatives? Once a week 06/04/2023 How often do you attend chur ch or scientology services? 1 to 4 times per year 06/04/2023 Do you belong to any clubs o r organizations such as advent groups, unions, fraternal or athletic groups, or [...] Recorded Patient Health Questionnaire-2 Score 6 05/18/2024 [facility] - Occupational Stress Questionnaire Answer Date Recorded [...] place to sleep or slept in a chcf (including now)? No 06/04/2023 Comments Unknown Sex and Gender Information Value Date Recorded Sex Assigned at Female 04/29/2023 4:00 PM EST Legal Sex Female 7:10 PM EDT Gender Identity Female 04/29/2023 4:00 PM EST Sexual Orientation Asexual 06/04/2023 10 :08 PM EST documented as of this encounter Progress Notes * Dian Guerin MA - 10/28/2024 11:17 AM EDT <October 28, 2024, 11:18 - Dian Guerin MA> Called [facility] to follow up on how patient was doing. Spoke to Nurse and states patient is working with therapy and is a 2 assist with ADLs at this time. documented in this encounter Plan of Treatment Not on file documented as of this encounter Visit Diagnoses Not on filedocumented in this encounter Additional Health Concerns Assessment Noted Time PHQ-9 Depression Total Score: 18 024 9:00 AM EST documented as of this encounter Care Teams Design Engineer Marine Equipment Relationship Specialty Start Date End Date Maxim Lanza MD [address] [place] [address] PCP - General Family Medicine 07/15/23 Kristin Gracia NP [address] [place] [address] Primary Care Provider Family Medicine 05/20/22 documented as of this encounter
--- OUTSIDE RECORDS SUMMARY | 2024-11-07 10:53 | XMS_ITS | Encounter Summary ---
Author Organization [facility] Address [facility] [place] [address] Care Team Providers Care Power Generation Engineer Name Role Phone Valdez Acosta MD Primary Care Provider [phone] Dian Smith PA-C Unavailable + [phone] Malinda Lopez APRN.HEAD STOCK TRANSFER CLERK Unavailable + [phone] Source Comments In the event this information is protected by the Federal Confidentiality of Alcohol and Drug AbusePatient Records regulations: The Federal rules restrict any use of the information to criminally investigate or prosecute any alcohol or drug abuse patient.[facility] Encounter Details Date Type Department Care Team (Late st Contact Info) Description 09/09/2023 Patient Msg Neurology [address] [phone] Provider, Ccf Requested EMG Appointment Social History Tobacco Use Types Packs/Day Years [...] Never 08/02/2020 How often do you attend druze or jainism serv ices? Never 08/02/2020 Do you belong to any clubs o r organizations such as druze groups, unions, fraternal or athletic groups, or [...] Answer Date Recorded PHQ-2 score 5 09/05/2023 [facility] of Occupat ional Health - Occupational [...] place to sleep or slept in a mcfp (including now)? No 08/02/2020 Area Deprivation Index Answer Date Chris rded National Score (1-100), lower number is lower ri sk 63 09/20/2022 State Score (1-10), lower number is lower risk 4 09/20/2022 Data from: https://www.neighborhoodatlas.medicine.[facility].edu/. Last address used for calculation [address] [...] on filedocumented in this encounter Care Teams Power Generation Engineer Relationship Specialty Start Date End Date Valdez Acosta MD [address] [place] [address] PCP - General Internal Medicine 11/01/20 Dian Smith PA-C [address] [place] [address] Fios Line Installer Internal Medicine 04/26/24 05/21/24 Malinda Lopez APRN.HEAD STOCK TRANSFER CLERK [address] [place] [address] Fios Line Installer Family Medicine 04/26/24 documented as of this encounter
--- OUTSIDE RECORDS SUMMARY | 2024-11-07 10:53 | XMS_ITS | Encounter Summary ---
Author Organization [facility] Address [address] [place], [place] [phone] Care Team Providers Care Securities Lending Trader Name Role Phone Frances Hills (Rn) survey compiler Provider Valdez Bhandari MD Primary Care Provider [phone] Dian Smith PA-C Unavailable + [phone] Malinda Lopez APRN.[facility] Unavailable + [phone] Source Comments In the event this information is protected by the Federal Confidentiality of Alcohol and Drug AbusePatient Records regulations: The Federal rules restrict any use of the information to criminally investigate or prosecute any alcohol or drug abuse patient.[facility] Encounter Details Date Type Department Care Team (Late st Contact Info) Description 07/15/2020 Patient [facility] [address] [place], [place] [phone] Provider, Ccf Referral Social History Tobacco Use Types Packs/Day Years Used Date Smoking Tobacco: Former Cigarettes 1 20 0 12/13/1996 - 12/13/2016 Smokeless Tobacco: Never Comments:plans to try to fredy t at some point but not ready. Alcohol Use Standard Drinks/Week Comments Yes 0 (1 standard drink = 0.6 oz pur e alcohol) rare PHQ-2 Answer Date Recorded PHQ-2 score 2 07/31/2019 Area Deprivation Index Answer Date Chris rded National Score (1-100), lower number is lower ri sk Not on file 04/27/2020 State Score (1-10), lower number is lower risk N ot on file 04/27/2020 Data from: https://www.neighborhoodatlas.medicine.[facility]/. Last address used for calculation Not on file 04/27/2020 Comments No Sex and Gender Information Value [...] have Coronavirus / COVID-19? No / Unsure 07/15/2020 9:59 AM EST documented as of this encounter [...] of Assessment Author No 10/29/2014 10:13 AM BARBIT Treasure Broussard MA documented as of this [...] documented as of this encounter Care Teams Securities Lending Trader Relationship Specialty Start Date End Date ReinierAugust (Rn), RN PCP - General 12/06/17 10/31/20 Valdez Acosta MD [address] [place] [address] PCP - General Internal Medicine 11/01/20 Dian Smith PA-C [address] [place] [address] Kiln Puller Internal Medicine 04/26/24 05/21/24 Malinda Lopez, PLASTIC SHEETING CUTTER.CREDIT UNDERWRITER [address] [place] [address] Kiln Puller Family Medicine 04/26/24 documented as of this encounter
--- OUTSIDE RECORDS SUMMARY | 2024-11-07 10:53 | XMS_ITS | Patient Health Record ---
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 , White Blood Count 6.6 4.0-11.0 10 3/uL Red Blood Count 3.36 4.20-5.40 10 6/uL Hemoglobin 9.5 12.0-16.0 g/dL Hematocrit 32.1 36.0-48.0 % Mean Corpuscular Volume 95.5 81.0-99.0 fL Mean Corpuscular Hemoglobin 28.3 26.7-34.0 pg Mean Corpuscular HGB Conc 29.6 29.9-35.2 g/dL Red Cell Distribution Width 19.2 11.0-15.0 % Platelet Count 152 150-450 10 3/uL Mean Platelet Volume 10.8 9.5-13.5 fL Neutrophils Percent Auto 90.4 43.0-75.0 % Lymphocytes Percent Auto 6.6 20.5-60.0 % Monocytes Percent Auto 1.5 1.7-12.0 % Eosinophils Percent Auto 0.5 0.9-7.0 % Basophils Percent Auto 0.2 0.2-2.0 % Immature Granulocytes Pct Auto 0.8 0.0-0.5 % Neutrophils Absolute Auto 5.9 1.4-6.5 10 3/uL Lymphocytes Absolute Auto 0.4 1.2-3.8 10 3/uL Monocytes Absolute Auto 0.1 0.3-0.8 10 3/uL Eosinophils Absolute Auto 0.0 0.0-0.7 10 3/uL Basophils Absolute Auto 0.0 0.0-0.1 10 3/uL Immature Granulocytes Abs Auto 0.05 0.00-0.03 10 3/uL Performing Lab: see note ML - [facility] LB INFLUENZA A AND B AG Reviewed date:10/18/2024 04:24:42 PM Interpretation: Performing Lab: Notes/Report: [facility] , Influenza Virus A Antigen Negative Negative for Flu A protein antigen. Infection due to Flu A below the detection limit of the test. cannot be ruled out. Flu A antigen in the sample may be Influenza Virus B Antigen Negative cannot be ruled out. Flu B antigen in the sample may be below the detection limit of the test. Negative for Flu B protein antigen. Infection due to Flu B Performing Lab: see note ML - [facility] LB LACTATE or LACTIC ACID Reviewed date:10/18/2024 04:24:42 PM Interpretation: Performing Lab: Notes/Report: [facility] , Lactate/Lactic Acid 3.1 0.4-2.0 mmol/L RESULT S CALLED TO ALIZA TOWNSEND RN Performing Lab: see note ML - [facility] LB MAGNESIUM Reviewed date:10/18/2024 04:24:42 PM Interpretation: Performing Lab: Notes/Report: [facility] , Magnesium 2.0 1.8-2.4 mg/dL Performing Lab: see note ML - [facility] LB RSV Reviewed date:10/18/2024 04:24:42 PM Interpretation: Performing Lab: Notes/Report: [facility] , Respiratory Syncytial Virus Not Detected NOT DETECTE Performing Lab: see note ML - [facility] LB T4 Reviewed date:10/18/2024 04:24:42 PM Interpretation: Performing Lab: Notes/Report: [facility] , T4 Thyroxine 6.60 4.80-13.90 ug/dL Performing Lab: see note ML - [facility] LB TSH Reviewed date:10/18/2024 04:24:42 PM Interpretation: Performing Lab: Notes/Report: [facility] , Thyroid Stimulating Hormone 1.513 0.358-3.740 uIU/mL Performing Lab: see note ML - [facility] LB UA RANDOM W or MICROSCOPIC Reviewed date:10/18/2024 04:24:42 PM Interpretation: Performing Lab: Notes/Report: [facility] , Color Urine LT. YELLOW YELLOW Clarity Urine SLIGHTLY CLOUDY CLEAR Specific Burt Urine <=1.005 1.005-1.025 pH Urine 7.0 5.0-9.0 Protein Urine NEGATIVE NEG/TRACE mg/dL Glucose Urine UA NEGATIVE NEGATIVE mg/dL Bilirubin Urine NEGATIVE NEGATIVE Ketones Urine NEGATIVE NEGATIVE mg/dL Blood Urine SMALL NEGATIVE Nitrite Urine NEGATIVE NEGATIVE Urobilinogen Urine 0.2 0.2-1.0 EU/dL Leukocyte Esterase Urine LARGE NEGATIVE WBC Urine 20-50 NONE SEEN #/HPF RBC Urine 5-10 0-2 #/HPF Bacteria Urine SMALL NONE SEEN #/HPF Mucus Urine NONE SEEN NONE SEEN Squamous Epithelial Cell Urine FEW NONE/RARE #/LPF Crystals Seen? Seen None Seen #/HPF Triple Phosphate Crystal Urine RARE Amorphous Sediment Urine FEW Cast Seen? NONE SEEN NONE SEEN #/LPF Urine Culture Indicated ALREADY ORDERED Performing Lab: see note ML - [facility] LB Troponin I High Sensitivity Reviewed date:10/18/2024 04:24:42 PM Interpretation: Performing Lab: Notes/Report: [facility] , Troponin I High Sensitivity 29.4 4.0-51.3 pg/mL PERCENTILE OF cTnI DISTRIBUTION IN A REFERENCE POPULATION, 99TH PERCENTILE = 51.4 PG/ML CUT-OFF POINTS HAVE BEEN ESTABLISHED BASED ON THE FOURTH USED IN ISOLATION BUT SHOULD BE INTERPRETED IN CONJUNCTION WITH OTHER DIAGNOSTIC AND CLINICAL INFORMATION. NOTE: HIGH-SENSITIVITY TROPONIN ASSAY IS NOT INTENDED TO BE HAS BEEN CONFIRMED THE DECISION THRESHOLD FOR [place] UNIVERSAL DEFINITION OF MYOCARDIAL INFARCTION. THE UPPER DIAGNOSIS. REFERENCE LIMIT (URL) OF TROPONIN, DEFINED THE 99TH Performing Lab: see note ML - [facility] LB SARS-CoV-2 Ag* Reviewed date:10/18/2024 04:24:42 PM Interpretation: Performing Lab: Notes/Report: [facility] , SARS-CoV-2 Ag NEGATIVE NEGATIVE authorized by the FDA under an Emergency Use Authorization terminated or authorization is revoked sooner. authorized for the duration of the declaration that viruses or pathogens. The emergency use of this test is circumstances exist justifying the authorization of Act, 21 U.S.C. 360bbb-3(b)(1), unless the declaration is complexity testing. This test has been authorized only for emergency use of in vitro diagnostic tests for detection and/or diagnosis of Covid-19 under section 564(b)(1) of the This test has not been FDA cleared or approved, but has been (EUA) for use by authorized laboratories certified under CLIA that meet the requirements to perform moderate or high the detection of proteins from SARS-CoV-2, not for any other Performing Lab: see note ML - [facility] Urine Culture - [facility] [place] Reviewed date:10/19/2024 09:03:55 PM Interpretation: Performing Lab: Notes/Report: [facility] , Urine Culture - [facility] [place] See Below For Report Testing performed at [facility] Isolated Antibiotic Interpretation ROSE Status [place] Count Organism: 1.1 Urine Culture - FR O:PROMIR Urine Culture - [facility] [place] Urine Culture - FR [address], [place] [address] Testing performed at [facility] Isolated Antibiotic Interpretation ROSE Status [place] Count Organism: 1.1 Urine Culture - FR O:PROMIR Urine Culture - [facility] [place] Urine Culture - [facility] [place] See Below For Report Testing performed at [facility] Isolated Antibiotic Interpretation ROSE Status [place] Count Organism: 1.1 Urine Culture - FR O:PROMIR Urine Culture - [facility] [place] Urine Culture - [facility] See Below For Report Testing performed at [facility] Isolated Antibiotic Interpretation ROSE Status [place] Count Organism: 1.1 Urine Culture - FR O:PROMIR Urine Culture - [facility] [place] Urine Culture - [facility] [place] >100,000 Testing performed at [facility] Isolated Antibiotic Interpretation ROSE Status [place] Count Organism: 1.1 Urine Culture - FR O:PROMIR Urine Culture - FR Urine Culture - FR See Below For Report Testing performed at [facility] Isolated Antibiotic Interpretation ROSE Status [place] Count Organism: 1.1 Urine Culture - FR O:PROMIR Urine Culture - [facility] [place] Urine Culture - FR Amikacin S F Testing performed at [facility] Isolated Antibiotic Interpretation ROSE Status [place] Count Organism: 1.1 Urine Culture - FR O:PROMIR Urine Culture - [facility] [place] Urine Culture - FR Amoxicillin/Clavula cherri S F Testing performed at [facility] Isolated Antibiotic Interpretation ROSE Status [place] Count Organism: 1.1 Urine Culture - [facility] [place] O:PROMIR Urine Culture - [facility] [place] Urine Culture - [facility] [place] Ampicillin S F Testing performed at [facility] Isolated Antibiotic Interpretation ROSE Status [place] Count Organism: 1.1 Urine Culture - [facility] [place] O:PROMIR Urine Culture - [facility] [place] Urine Culture - [facility] [place] Aztreonam S F Testing performed at [facility] Isolated Antibiotic Interpretation ROSE Status [place] Count Organism: 1.1 Urine Culture - [facility] [place] O:PROMIR Urine Culture - [facility] [place] Urine Culture - [facility] [place] Ceftazidime S F Testing performed at [facility] Isolated Antibiotic Interpretation ROSE Status [place] Count Organism: 1.1 Urine Culture - [facility] [place] O:PROMIR Urine Culture - [facility] [place] Urine Culture - [facility] [place] Ceftazidime/Avibactam S F Testing performed at [facility] Isolated Antibiotic Interpretation ROSE Status [place] Count Organism: 1.1 Urine Culture - [facility] [place] O:PROMIR Urine Culture - [facility] [place] Urine Culture - [facility] [place] Ceftolozane/Tazobac egan S F Testing performed at [facility] Isolated Antibiotic Interpretation ROSE Status [place] Count Organism: 1.1 Urine Culture - [facility] [place] O:PROMIR Urine Culture - [facility] [place] Urine Culture - [facility] [place] Ciprofloxacin S F Testing performed at [facility] Isolated Antibiotic Interpretation ROSE Status [place] Count Organism: 1.1 Urine Culture - [facility] [place] O:PROMIR Urine Culture - [facility] [place] Urine Culture - [facility] [place] Ertapenem S F Testing performed at [facility] Isolated Antibiotic Interpretation ROSE Status [place] Count Organism: 1.1 Urine Culture - [facility] [place] O:PROMIR Urine Culture - [facility] [place] Urine Culture - [facility] [place] Gentamicin S F Testing performed at [facility] Isolated Antibiotic Interpretation ROSE Status [place] Count Organism: 1.1 Urine Culture - [facility] [place] O:PROMIR Urine Culture - [facility] [place] Urine Culture - [facility] [place] Levofloxacin S F Testing performed at [facility] Isolated Antibiotic Interpretation ROSE Status [place] Count Organism: 1.1 Urine Culture - [facility] [place] O:PROMIR Urine Culture - [facility] [place] Urine Culture - [facility] [place] Meropenem S F Testing performed at [facility] Isolated Antibiotic Interpretation ROSE Status [place] Count Organism: 1.1 Urine Culture - [facility] [place] O:PROMIR Urine Culture - [facility] [place] Urine Culture - [facility] [place] Meropenem/Vaborbactam S F Testing performed at [facility] Isolated Antibiotic Interpretation ROSE Status [place] Count Organism: 1.1 Urine Culture - [facility] [place] O:PROMIR Urine Culture - [facility] [place] Urine Culture - FR Tobramycin S F Testing performed at [facility] Isolated Antibiotic Interpretation ROSE Status [place] Count Organism: 1.1 Urine Culture - FR O:PROMIR Urine Culture - [facility] [place] Urine Culture - FR Ampicillin/Sulbactam S F Testing performed at [facility] Isolated Antibiotic Interpretation ROSE Status [place] Count Organism: 1.1 Urine Culture - FR O:PROMIR Urine Culture - [facility] [place] Urine Culture - [facility] [place] Cefazolin S F Testing performed at [facility] Isolated Antibiotic Interpretation ROSE Status [place] Count Organism: 1.1 Urine Culture - [facility] [place] O:PROMIR Urine Culture - [facility] [place] Urine Culture - [facility] [place] Cefepime S F Testing performed at [facility] Isolated Antibiotic Interpretation ROSE Status [place] Count Organism: 1.1 Urine Culture - [facility] [place] O:PROMIR Urine Culture - [facility] [place] Urine Culture - [facility] [place] Ceftriaxone S F Testing performed at [facility] Isolated Antibiotic Interpretation ROSE Status [place] Count Organism: 1.1 Urine Culture - [facility] [place] O:PROMIR Urine Culture - [facility] [place] Urine Culture - [facility] [place] Cefuroxime S F Testing performed at [facility] Isolated Antibiotic Interpretation ROSE Status [place] Count Organism: 1.1 Urine Culture - [facility] [place] O:PROMIR Urine Culture - [facility] [place] Urine Culture - [facility] [place] Piperacillin/Tazoba ctam S F Testing performed at [facility] Isolated Antibiotic Interpretation ROSE Status [place] Count Organism: 1.1 Urine Culture - [facility] [place] O:PROMIR Urine Culture - [facility] [place] Urine Culture - [facility] [place] Trimethoprim/Sulfa S F Testing performed at [facility] Isolated Antibiotic Interpretation ROSE Status [place] Count Organism: 1.1 Urine Culture - [facility] [place] O:PROMIR Urine Culture - [facility] [place] Performing Lab: see note ML - [facility] LB SEE REPORT - Rn Camp Id information not found for 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-specific construction 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 legend BLOOD GASES BTY Reviewed date:10/18/2024 04:24:42 PM Interpretation: Performing Lab: Notes/Report: [facility] , pH ABG 7.409 7.350-7.450 ABG PCO2 51.8 35.0-45.0 mmHg RESULTS AVALOS D TO ALIZA TOWNSEND RN PO2 ABG 67.3 80.0-100.0 mmHg HCO3 ABG 32.7 22.0-26.0 mmol/L Base Excess ABG 8.1 -2.0-2.0 mmol/L Oxygen Saturation ABG 94.5 Quinetn Test POSITIVE POSITIVE O2 Mode NC Liters per Minute 2 Puncture Site LR Performing Lab: see note ML - [facility] BNP Reviewed date:10/18/2024 04:24:42 PM Interpretation: Performing Lab: Notes/Report: [facility] , NT Pro B Type Natriuretic Pept 5191.0 <=900.0 pg/mL RESULTS CALLED TO Erick Gomez RN Performing Lab: see note ML - [facility] PROF CHEM 8 (BAS METB) Reviewed date:10/18/2024 04:24:42 PM Interpretation: Performing Lab: Notes/Report: [facility] , Sodium 145 136-145 mmol/L Potassium 3.8 3.5-5.1 mmol/L Chloride 105 98-107 mmol/L Carbon Dioxide 31.6 21.0-32.0 mmol/L Anion Gap 12.2 Glucose 203 74-106 mg/dL Blood Urea Nitrogen 23.0 7.0-18.0 mg/dL Creatinine 0.91 0.55-1.02 mg/dL Estimated GFR ( Maricel >60 >=60 mL/min/1.73m 2 Estimated GFR (Non- Lindsay >60 >=60 mL/min/1.73m 2 BUN Creatinine Ratio 25.3 Calcium 8.2 8.5-10.1 mg/dL Performing Lab: see note - [facility] Troponin I High Sensitivity Reviewed date:10/18/2024 04:24:42 PM Interpretation: Performing Lab: Notes/Report: [facility] , Troponin I High Sensitivity 1650.4 4.0-51.3 pg/mL 99TH PERCENTILE = 51.4 PG/ML UNIVERSAL DEFINITION OF MYOCARDIAL INFARCTION. THE UPPER CUT-OFF POINTS HAVE BEEN ESTABLISHED BASED ON THE FOURTH PERCENTILE OF cTnI DISTRIBUTION IN A REFERENCE POPULATION, NOTE: HIGH-SENSITIVITY TROPONIN ASSAY IS NOT INTENDED TO BE HAS BEEN CONFIRMED THE DECISION THRESHOLD FOR [place] WITH OTHER DIAGNOSTIC AND CLINICAL INFORMATION. REFERENCE LIMIT (URL) OF TROPONIN, DEFINED THE 99TH DIAGNOSIS. USED IN ISOLATION BUT SHOULD BE INTERPRETED IN CONJUNCTION RESULTS CALLED TO Erick Gomez RN Performing Lab: see note ML - [facility] Troponin I High Sensitivity Reviewed date:10/18/2024 04:24:42 PM Interpretation: Performing Lab: Notes/Report: [facility] , Troponin I High Sensitivity 1354.8 4.0-51.3 pg/mL CUT-OFF POINTS HAVE BEEN ESTABLISHED BASED ON THE FOURTH NOTE: HIGH-SENSITIVITY TROPONIN ASSAY IS NOT INTENDED TO BE USED IN ISOLATION BUT SHOULD BE INTERPRETED IN CONJUNCTION 99TH PERCENTILE = 51.4 PG/ML DIAGNOSIS. PERCENTILE OF cTnI DISTRIBUTION IN A REFERENCE POPULATION, RESULTS CALLED TO Aliza Townsend RN WITH OTHER DIAGNOSTIC AND CLINICAL INFORMATION. UNIVERSAL DEFINITION OF MYOCARDIAL INFARCTION. THE UPPER REFERENCE LIMIT (URL) OF TROPONIN, DEFINED THE 99TH HAS BEEN CONFIRMED THE DECISION THRESHOLD FOR [place] Performing Lab: see note ML - [facility] LB LIVER PROFILE Reviewed date:10/19/2024 09:03:55 PM Interpretation: Performing Lab: Notes/Report: [facility] , Bilirubin Total 0.3 0.2-1.0 mg/dL Bilirubin Direct 0.1 0.0-0.2 mg/dL Aspartate Amino Transferase 35 15-37 U/L Alanine Aminotransferase 47 14-59 U/L Alkaline Phosphatase 93 46-116 U/L Total Protein 5.7 6.4-8.2 g/dL Albumin Level 1.9 3.4-5.0 g/dL Globulin 3.8 Albumin Globulin Ratio 0.5 Performing Lab: see note ML - [facility] LB BNP Reviewed date:10/20/2024 04:20:37 PM Interpretation: Performing Lab: Notes/Report: [facility] , NT Pro B Type Natriuretic Pept 4134.0 <=900.0 pg/mL Ciara at 0620 RESULTS CALLED TO GILBERTO SEGOVIA RN @BY Leslie Morrow Performing Lab: see note ML - [facility] CBC AUTO DIFF Reviewed date:10/20/2024 04:20:37 PM Interpretation: Performing Lab: Notes/Report: [facility] , White Blood Count 8.6 4.0-11.0 10 3/uL Red Blood Count 3.15 4.20-5.40 10 6/uL Hemoglobin 8.9 12.0-16.0 g/dL Hematocrit 29.9 36.0-48.0 % Mean Corpuscular Volume 94.9 81.0-99.0 fL Mean Corpuscular Hemoglobin 28.3 26.7-34.0 pg Mean Corpuscular HGB Conc 29.8 29.9-35.2 g/dL Red Cell Distribution Width 18.5 11.0-15.0 % Platelet Count 192 150-450 10 3/uL Mean Platelet Volume 10.4 9.5-13.5 fL Neutrophils Percent Auto 71.2 43.0-75.0 % Lymphocytes Percent Auto 17.4 20.5-60.0 % Monocytes Percent Auto 9.4 1.7-12.0 % Eosinophils Percent Auto 0.1 0.9-7.0 % Basophils Percent Auto 0.1 0.2-2.0 % Immature Granulocytes Pct Auto 1.8 0.0-0.5 % Neutrophils Absolute Auto 6.1 1.4-6.5 10 3/uL Lymphocytes Absolute Auto 1.5 1.2-3.8 10 3/uL Monocytes Absolute Auto 0.8 0.3-0.8 10 3/uL Eosinophils Absolute Auto 0.0 0.0-0.7 10 3/uL Basophils Absolute Auto 0.0 0.0-0.1 10 3/uL Immature Granulocytes Abs Auto 0.15 0.00-0.03 10 3/uL Performing Lab: see note ML - [facility] LB DIGOXIN Reviewed date:10/20/2024 04:20:37 PM Interpretation: Performing Lab: Notes/Report: [facility] , Digoxin 0.8 0.9-2.0 ng/mL Performing Lab: see note ML - [facility] LB PROF CHEM 8 (BAS METB) Reviewed date:10/20/2024 04:20:37 PM Interpretation: Performing Lab: Notes/Report: [facility] , Sodium 149 136-145 mmol/L Potassium 3.6 3.5-5.1 mmol/L Chloride 109 98-107 mmol/L Carbon Dioxide 34.4 21.0-32.0 mmol/L Anion Gap 9.2 Glucose 92 74-106 mg/dL Blood Urea Nitrogen 29.0 7.0-18.0 mg/dL Creatinine 0.77 0.55-1.02 mg/dL Estimated GFR ( Maricel >60 >=60 mL/min/1.73m 2 Estimated GFR (Non- Lindsay >60 >=60 mL/min/1.73m 2 BUN Creatinine Ratio 37.7 Calcium 8.5 8.5-10.1 mg/dL Performing Lab: see note ML - [facility] LB Troponin I High Sensitivity Reviewed date:10/20/2024 04:20:37 PM Interpretation: Performing Lab: Notes/Report: [facility] , Troponin I High Sensitivity 833.8 4.0-51.3 pg/mL DIAGNOSIS. NOTE: HIGH-SENSITIVITY TROPONIN ASSAY IS NOT INTENDED TO BE REFERENCE LIMIT (URL) OF TROPONIN, DEFINED THE 99TH CUT-OFF POINTS HAVE BEEN ESTABLISHED BASED ON THE FOURTH PERCENTILE OF cTnI DISTRIBUTION IN A REFERENCE POPULATION, Ciara at 0620 RESULTS CALLED TO GILBERTO SEGOVIA RN @BY Leslie Morrow UNIVERSAL DEFINITION OF MYOCARDIAL INFARCTION. THE UPPER HAS BEEN CONFIRMED THE DECISION THRESHOLD FOR [place] 99TH PERCENTILE = 51.4 PG/ML WITH OTHER DIAGNOSTIC AND CLINICAL INFORMATION. USED IN ISOLATION BUT SHOULD BE INTERPRETED IN CONJUNCTION Performing Lab: see note ML - [facility] LB CBC AUTO DIFF Reviewed date:10/22/2024 08:13:21 PM Interpretation: Performing Lab: Notes/Report: [facility] , White Blood Count 8.3 4.0-11.0 10 3/uL Red Blood Count 3.42 4.20-5.40 10 6/uL Hemoglobin 9.6 12.0-16.0 g/dL Hematocrit 31.5 36.0-48.0 % Mean Corpuscular Volume 92.1 81.0-99.0 fL Mean Corpuscular Hemoglobin 28.1 26.7-34.0 pg Mean Corpuscular HGB Conc 30.5 29.9-35.2 g/dL Red Cell Distribution Width 18.3 11.0-15.0 % Platelet Count 197 150-450 10 3/uL Mean Platelet Volume 10.3 9.5-13.5 fL Neutrophils Percent Auto 71.2 43.0-75.0 % Lymphocytes Percent Auto 15.4 20.5-60.0 % Monocytes Percent Auto 8.8 1.7-12.0 % Eosinophils Percent Auto 2.1 0.9-7.0 % Basophils Percent Auto 0.2 0.2-2.0 % Immature Granulocytes Pct Auto 2.3 0.0-0.5 % Neutrophils Absolute Auto 5.9 1.4-6.5 10 3/uL Lymphocytes Absolute Auto 1.3 1.2-3.8 10 3/uL Monocytes Absolute Auto 0.7 0.3-0.8 10 3/uL Eosinophils Absolute Auto 0.2 0.0-0.7 10 3/uL Basophils Absolute Auto 0.0 0.0-0.1 10 3/uL Immature Granulocytes Abs Auto 0.19 0.00-0.03 10 3/uL Performing Lab: see note ML - [facility] LB Troponin I High Sensitivity Reviewed date:10/21/2024 09:27:44 PM Interpretation: Performing Lab: Notes/Report: [facility] , Troponin I High Sensitivity 643.9 4.0-51.3 pg/mL USED IN ISOLATION BUT SHOULD BE INTERPRETED IN CONJUNCTION at 0623 CUT-OFF POINTS HAVE BEEN ESTABLISHED BASED ON THE FOURTH UNIVERSAL DEFINITION OF MYOCARDIAL INFARCTION. THE UPPER 99TH PERCENTILE = 51.4 PG/ML PERCENTILE OF cTnI DISTRIBUTION IN A REFERENCE POPULATION, HAS BEEN CONFIRMED THE DECISION THRESHOLD FOR [place] WITH OTHER DIAGNOSTIC AND CLINICAL INFORMATION. DIAGNOSIS. REFERENCE LIMIT (URL) OF TROPONIN, DEFINED THE 99TH NOTE: HIGH-SENSITIVITY TROPONIN ASSAY IS NOT INTENDED TO BE RESULTS CALLED TO ERICK GOMEZ RN @BY Leslie Urbina Performing Lab: see note ML - [facility] LB PROF CHEM 8 (BAS METB) Reviewed date:10/21/2024 09:27:44 PM Interpretation: Performing Lab: Notes/Report: [facility] , Sodium 150 136-145 mmol/L Potassium 3.0 3.5-5.1 mmol/L Chloride 106 98-107 mmol/L Carbon Dioxide 38.1 21.0-32.0 mmol/L Anion Gap 8.9 Glucose 95 74-106 mg/dL Blood Urea Nitrogen 34.0 7.0-18.0 mg/dL Creatinine 0.85 0.55-1.02 mg/dL Estimated GFR ( Maricel >60 >=60 mL/min/1.73m 2 Estimated GFR (Non- Lindsay >60 >=60 mL/min/1.73m 2 BUN Creatinine Ratio 40.0 Calcium 8.7 8.5-10.1 mg/dL Performing Lab: see note ML - [facility] LB CBC AUTO DIFF Reviewed date:10/21/2024 09:27:44 PM Interpretation: Performing Lab: Notes/Report: [facility] , White Blood Count 9.6 4.0-11.0 10 3/uL Red Blood Count 3.70 4.20-5.40 10 6/uL Hemoglobin 10.3 12.0-16.0 g/dL Hematocrit 34.0 36.0-48.0 % Mean Corpuscular Volume 91.9 81.0-99.0 fL Mean Corpuscular Hemoglobin 27.8 26.7-34.0 pg Mean Corpuscular HGB Conc 30.3 29.9-35.2 g/dL Red Cell Distribution Width 18.0 11.0-15.0 % Platelet Count 179 150-450 10 3/uL Mean Platelet Volume 10.4 9.5-13.5 fL Neutrophils Percent Auto 77.9 43.0-75.0 % Lymphocytes Percent Auto 10.5 20.5-60.0 % Monocytes Percent Auto 9.6 1.7-12.0 % Eosinophils Percent Auto 0.1 0.9-7.0 % Basophils Percent Auto 0.1 0.2-2.0 % Immature Granulocytes Pct Auto 1.8 0.0-0.5 % Neutrophils Absolute Auto 7.5 1.4-6.5 10 3/uL Lymphocytes Absolute Auto 1.0 1.2-3.8 10 3/uL Monocytes Absolute Auto 0.9 0.3-0.8 10 3/uL Eosinophils Absolute Auto 0.0 0.0-0.7 10 3/uL Basophils Absolute Auto 0.0 0.0-0.1 10 3/uL Immature Granulocytes Abs Auto 0.17 0.00-0.03 10 3/uL Performing Lab: see note ML - [facility] LB BNP Reviewed date:10/21/2024 09:27:44 PM Interpretation: Performing Lab: Notes/Report: [facility] , NT Pro B Type Natriuretic Pept 2996.0 <=900.0 pg/mL at 0623 RESULTS CALLED TO ERICK GOMEZ RN @BY Leslie Urbina Performing Lab: see note ML - [facility] LB Occult Blood* Reviewed date:10/21/2024 09:27:44 PM Interpretation: Performing Lab: Notes/Report: [facility] , Occult Blood Positive Performing Lab: see note - [facility] LB Troponin I High Sensitivity Reviewed date:10/19/2024 09:03:55 PM Interpretation: Performing Lab: Notes/Report: [facility] , Troponin I High Sensitivity 1054.0 4.0-51.3 pg/mL 99TH PERCENTILE = 51.4 PG/ML HAS BEEN CONFIRMED THE DECISION THRESHOLD FOR [place] UNIVERSAL DEFINITION OF MYOCARDIAL INFARCTION. THE UPPER at 0615 WITH OTHER DIAGNOSTIC AND CLINICAL INFORMATION. PERCENTILE OF cTnI DISTRIBUTION IN A REFERENCE POPULATION, CUT-OFF POINTS HAVE BEEN ESTABLISHED BASED ON THE FOURTH NOTE: HIGH-SENSITIVITY TROPONIN ASSAY IS NOT INTENDED TO BE RESULTS CALLED TO GILL BRANHAM RN @BY Leslie Urbina USED IN ISOLATION BUT SHOULD BE INTERPRETED IN CONJUNCTION DIAGNOSIS. REFERENCE LIMIT (URL) OF TROPONIN, DEFINED THE 99TH Performing Lab: see note ML - [facility] PROF CHEM 8 (BAS METB) Reviewed date:10/19/2024 09:03:55 PM Interpretation: Performing Lab: Notes/Report: [facility] , Sodium 148 136-145 mmol/L Potassium 4.1 3.5-5.1 mmol/L Chloride 107 98-107 mmol/L Carbon Dioxide 32.6 21.0-32.0 mmol/L Anion Gap 12.5 Glucose 114 74-106 mg/dL Blood Urea Nitrogen 27.0 7.0-18.0 mg/dL Creatinine 0.73 0.55-1.02 mg/dL Estimated GFR ( Maricel >60 >=60 mL/min/1.73m 2 Estimated GFR (Non- Lindsay >60 >=60 mL/min/1.73m 2 BUN Creatinine Ratio 37.0 Calcium 8.5 8.5-10.1 mg/dL Performing Lab: see note ML - [facility] DIGOXIN Reviewed date:10/19/2024 09:03:55 PM Interpretation: Performing Lab: Notes/Report: [facility] , Digoxin 1.1 0.9-2.0 ng/mL Performing Lab: see note ML - [facility] CBC AUTO DIFF Reviewed date:10/19/2024 09:03:55 PM Interpretation: Performing Lab: Notes/Report: [facility] , White Blood Count 10.5 4.0-11.0 10 3/uL Red Blood Count 3.07 4.20-5.40 10 6/uL Hemoglobin 8.8 12.0-16.0 g/dL Hematocrit 29.6 36.0-48.0 % Mean Corpuscular Volume 96.4 81.0-99.0 fL Mean Corpuscular Hemoglobin 28.7 26.7-34.0 pg Mean Corpuscular HGB Conc 29.7 29.9-35.2 g/dL Red Cell Distribution Width 18.9 11.0-15.0 % Platelet Count 180 150-450 10 3/uL Mean Platelet Volume 10.7 9.5-13.5 fL Neutrophils Percent Auto 83.7 43.0-75.0 % Lymphocytes Percent Auto 9.6 20.5-60.0 % Monocytes Percent Auto 5.9 1.7-12.0 % Eosinophils Percent Auto 0.0 0.9-7.0 % Basophils Percent Auto 0.1 0.2-2.0 % Immature Granulocytes Pct Auto 0.7 0.0-0.5 % Neutrophils Absolute Auto 8.8 1.4-6.5 10 3/uL Lymphocytes Absolute Auto 1.0 1.2-3.8 10 3/uL Monocytes Absolute Auto 0.6 0.3-0.8 10 3/uL Eosinophils Absolute Auto 0.0 0.0-0.7 10 3/uL Basophils Absolute Auto 0.0 0.0-0.1 10 3/uL Immature Granulocytes Abs Auto 0.07 0.00-0.03 10 3/uL Performing Lab: see note ML - [facility] LB BNP Reviewed date:10/19/2024 09:03:55 PM Interpretation: Performing Lab: Notes/Report: [facility] , NT Pro B Type Natriuretic Pept 4775.0 <=900.0 pg/mL at 0615 RESULTS CALLED TO GILL BRANHAM RN @BY Leslie Urbina Performing Lab: see note ML - [facility] LB Troponin I High Sensitivity Reviewed date:10/18/2024 04:24:42 PM Interpretation: Performing Lab: Notes/Report: [facility] , Troponin I High Sensitivity 1275.6 4.0-51.3 pg/mL RESULTS CALLED TO Aliza Townsend RN PERCENTILE OF cTnI DISTRIBUTION IN A REFERENCE POPULATION, REFERENCE LIMIT (URL) OF TROPONIN, DEFINED THE 99TH CUT-OFF POINTS HAVE BEEN ESTABLISHED BASED ON THE FOURTH HAS BEEN CONFIRMED THE DECISION THRESHOLD FOR [place] NOTE: HIGH-SENSITIVITY TROPONIN ASSAY IS NOT INTENDED TO BE DIAGNOSIS. WITH OTHER DIAGNOSTIC AND CLINICAL INFORMATION. 99TH PERCENTILE = 51.4 PG/ML USED IN ISOLATION BUT SHOULD BE INTERPRETED IN CONJUNCTION UNIVERSAL DEFINITION OF MYOCARDIAL INFARCTION. THE UPPER Performing Lab: see note - [facility] LB Troponin I High Sensitivity Reviewed date:10/18/2024 04:24:42 PM Interpretation: Performing Lab: Notes/Report: [facility] , Troponin I High Sensitivity 1412.6 4.0-51.3 pg/mL HAS BEEN CONFIRMED THE DECISION THRESHOLD FOR [place] UNIVERSAL DEFINITION OF MYOCARDIAL INFARCTION. THE UPPER 99TH PERCENTILE = 51.4 PG/ML CUT-OFF POINTS HAVE BEEN ESTABLISHED BASED ON THE FOURTH PERCENTILE OF cTnI DISTRIBUTION IN A REFERENCE POPULATION, USED IN ISOLATION BUT SHOULD BE INTERPRETED IN CONJUNCTION DIAGNOSIS. REFERENCE LIMIT (URL) OF TROPONIN, DEFINED THE 99TH NOTE: HIGH-SENSITIVITY TROPONIN ASSAY IS NOT INTENDED TO BE WITH OTHER DIAGNOSTIC AND CLINICAL INFORMATION. RESULTS CALLED TO Aliza Townsend RN Performing Lab: see note - [facility] LB ECG 12 lead Reviewed date:10/19/2024 09:03:55 PM Interpretation: Performing Lab: Notes/Report: Source Facility: [address] [place] [address] [place] [address] Electrocardiograph Report Signed Patient: NITHYA VASQUEZ MR#: [id number] : 1970 Acct:[id number] Age/Sex: 54 / F ADM Date: 10/17/24 Loc: [place] 223-[address]: Adrienne Holguin M.D. Ordering Physician: Adrienne Holguin M.D. Date of Service: 10/18/24 Procedure(s): ECG 12 lead Accession Number(s): [id number] cc: [facility] Test Date: 2024-10-18 Pat Name: NITHYA VASQUEZ Department: Room: [facility] [place] Gender: Female Floor Nurse: : 1970 Requested By: ADRIENNE HOLGUIN Order Number: [id number] Reading MD: ARTURO MOY M.D. Measurements Intervals [place] Rate: 92 P: 79 ID: 180 QRS: 62 QRSD: 78 T: 36 QT: 352 QTc: 402 Interpretive Statements 1100 Sinus rhythm 9110 normal ECG Compared to ECG 10/17/2024 19:42:58 Sinus tachycardia no longer present ST (T wave) deviation no longer present Electronically Signed On 10-18-2024 23:54:38 EDT by ARTURO MOY M.D. Dictated By: ARTURO MOY Signed By: 10/18/242354 DD/ TD/TT: [employer]: [place] [address] Electrocardiograph Report Signed Patient: SHEYLA VASQUEZ MR#: [id number] : 1970 Acct:[id number] Age/Sex: 54 / F ADM Date: 10/17/24 Loc: MS 223- Attending Dr: Angely Holguin M.D. Ordering Physician: Adrienne Holguin M.D. Date of Service: 10/18/24 Procedure(s): ECG 12 lead Accession Number(s): [id number] cc: [facility] Test Date: 2024-10-18 Pat Name: NITHYA FUNEZ Department: 61 Room: [facility] [place] Gender: Female Floor Nurse: : 1970 Requ ested By: ADRIENNE HOLGUIN Order Number: [id number] Reading MD: ARTURO MOY M.D. Measurements Intervals [place] Rate: 92 P: 79 ID: 180 QRS: 62 QRSD: 78 T: 36 QT: 352 QTc: 402 Interpretive Statements 1100 Sinus rhythm 9110 normal ECG Compared to ECG 10/17/2024 19:42:58 Sinus tachycardia no longer present ST (T wave) deviatio n no longer present Electronically Nona d On 10-18-2024 23:54:38 EDT by ARTURO MOY M.D. Dictated By: ARTURO MOY Signed By: 10/18/242354 DD/ TD/TT: [employer]: Prothrombin Time INR Reviewed date:10/18/2024 04:24:42 PM Interpretation: Performing Lab: Notes/Report: [facility] , Prothrombin Time 10.7 9.0-11.6 sec INR 1.01 2.5-3.5 FOR PROSTHETIC HEART VALVE REPLACEMENT DESIRED INR: 2.5-3.5 RECURRENT THROMBOSIS 2.0-3.0 CONDITIONS NOT LISTED BELOW Performing Lab: see note ML - [facility] LB PTT Reviewed date:10/18/2024 04:24:42 PM Interpretation: Performing Lab: Notes/Report: [facility] , Partial Thromboplastin Time 24.8 22.3-36.2 sec Performing Lab: see note ML - [facility] LB LACTATE or LACTIC ACID Reviewed date:10/18/2024 04:24:42 PM Interpretation: Performing Lab: Notes/Report: [facility] , Lactate/Lactic Acid 1.7 0.4-2.0 mmol/L Performing Lab: see note ML - [facility] Troponin I High Sensitivity Reviewed date:10/18/2024 04:24:42 PM Interpretation: Performing Lab: Notes/Report: [facility] , Troponin I High Sensitivity 18.8 4.0-51.3 pg/mL DIAGNOSIS. HAS BEEN CONFIRMED THE DECISION THRESHOLD FOR NV 99TH PERCENTILE = 51.4 PG/ML UNIVERSAL DEFINITION OF MYOCARDIAL INFARCTION. THE UPPER CUT-OFF POINTS HAVE BEEN ESTABLISHED BASED ON THE FOURTH PERCENTILE OF cTnI DISTRIBUTION IN A REFERENCE POPULATION, NOTE: HIGH-SENSITIVITY TROPONIN ASSAY IS NOT INTENDED TO BE REFERENCE LIMIT (URL) OF TROPONIN, DEFINED THE 99TH WITH OTHER DIAGNOSTIC AND CLINICAL INFORMATION. USED IN ISOLATION BUT SHOULD BE INTERPRETED IN CONJUNCTION Performing Lab: see note ML - [facility] Troponin I High Sensitivity Reviewed date:10/22/2024 08:13:21 PM Interpretation: Performing Lab: Notes/Report: [facility] , Troponin I High Sensitivity 451.2 4.0-51.3 pg/mL PERCENTILE OF cTnI DISTRIBUTION IN A REFERENCE POPULATION, CUT-OFF POINTS HAVE BEEN ESTABLISHED BASED ON THE FOURTH USED IN ISOLATION BUT SHOULD BE INTERPRETED IN CONJUNCTION UNIVERSAL DEFINITION OF MYOCARDIAL INFARCTION. THE UPPER RESULTS CALLED TO ERICK GOMEZ RN @BY Leslie Urbina DIAGNOSIS. WITH OTHER DIAGNOSTIC AND CLINICAL INFORMATION. NOTE: HIGH-SENSITIVITY TROPONIN ASSAY IS NOT INTENDED TO BE 99TH PERCENTILE = 51.4 PG/ML HAS BEEN CONFIRMED THE DECISION THRESHOLD FOR [place] REFERENCE LIMIT (URL) OF TROPONIN, DEFINED THE 99TH at 0611 Performing Lab: see note ML - [facility] LB PROF CHEM 8 (BAS METB) Reviewed date:10/22/2024 08:13:21 PM Interpretation: Performing Lab: Notes/Report: [facility] , Sodium 148 136-145 mmol/L Potassium 3.2 3.5-5.1 mmol/L Chloride 104 98-107 mmol/L Carbon Dioxide 40.8 21.0-32.0 mmol/L Anion Gap 6.4 Glucose 85 74-106 mg/dL Blood Urea Nitrogen 39.0 7.0-18.0 mg/dL Creatinine 1.02 0.55-1.02 mg/dL Estimated GFR ( Maricel >60 >=60 mL/min/1.73m 2 Estimated GFR (Non- Lindsay 56 >=60 mL/min/1.73m 2 BUN Creatinine Ratio 38.2 Calcium 9.0 8.5-10.1 mg/dL Performing Lab: see note ML - [facility] BNP Reviewed date:10/22/2024 08:13:21 PM Interpretation: Performing Lab: Notes/Report: [facility] , NT Pro B Type Natriuretic Pept 1268.0 <=900.0 pg/mL at 0611 RESULTS CALLED TO ERICK GOMEZ RN @BY Leslie Urbina Performing Lab: see note ML - [facility] Reason For Referral No Information Medications Medication SIG (Take, Route, Frequency, Duration) Notes Start Date End Date Status Lisinopril Active MoviPrep 100 GM as directed Orally B ID for 1 days 08/13/2022 Active Ocrevus Active oxyBUTYnin Active Albuterol Active Amitriptyline HCl Ac tive Atorvastatin Calcium 40 MG 1 tablet Oral ly Once a day Active DULoxetine HCl Activ e Social History Tobacco Use: Social History Observation Description Date Details (start date - stop date) Former Smoker 06/21/1986 - 12/10/2014 Tobacco Use/Smoking Question Answer Notes Patient is a former smoker When did you start smoking? 06/21/1986 When did you stop smoking? 12/10/2014 How long has it been since y ou last smoked? 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5 Hypertension 401.9 Anxiety and depression F41.9 Constipation K59.00 Burning sensation of rectum R20.8 Surgical History Surgery Date(Month/Year) tubal 1991 carpal tunnel
--- OUTSIDE RECORDS SUMMARY | 2024-11-07 10:53 | XMS_ITS | Encounter Summary ---
Author Organization [facility] Address [address] [place] [address] Care Team Providers Care Financing Analyst Name Role Phone Valdez Acosta MD Primary Care Provider + [phone] Dian Smith PA-C Unavailable + [phone] Malinda Lopez APRN.PLUMBING ENGINEERING DRAFTSPERSON Unavailable + [phone] Source Comments In the event this information is protected by the Federal Confidentiality of Alcohol and Drug AbusePatient Records regulations: The Federal rules restrict any use of the information to criminally investigate or prosecute any alcohol or drug abuse patient.[facility] Encounter Details Date Type Department Care Team (Late st Contact Info) Description 11/26/2023 Patient Msg Radiology [address] [place] [address] Provider, [facility] MRI Questionnaire Social History Tobacco Use Types Packs/Day Years [...] Never 08/02/2020 How often do you attend faith or episcopal serv ices? Never 08/02/2020 Do you belong to any clubs o r organizations such as faith groups, unions, fraternal or athletic groups, or [...] Answer Date Recorded PHQ-2 score 5 09/05/2023 [facility] [place] - Occupational Stress Questionnaire Answer Date Recorded [...] place to sleep or slept in a care home (including now)? No 08/02/2020 Area Deprivation Index Answer Date Chris rded National Score (1-100), lower number is lower ri sk 63 09/20/2022 State Score (1-10), lower number is lower risk 4 09/20/2022 Data from: https://www.neighborhoodatlas.medicine.[employer] [facility].edu/. Last address used for calculation [address] [...] on filedocumented in this encounter Care Teams Financing Analyst Relationship Specialty Start Date End Date Valdez Acosta MD [address] [place] [address] PCP - General Internal Medicine 11/01/20 Dian Smith PA-C [address] [place] [address] [facility] Internal Medicine 04/26/24 05/21/24 Malinda Lopez APRN.PLUMBING ENGINEERING DRAFTSPERSON [address] [place] [id number] [employer] Family Medicine 04/26/24 documented as of this encounter
--- OUTSIDE RECORDS SUMMARY | 2024-11-07 10:53 | XMS_ITS | Clinical Summary ---
Author Organization [facility] Address [address] [place] [address] Care Team Providers Care Armor Officer Name Role Phone HarveyberenicejesicaKristin beltran PHARMACEUTICAL WORKER Unavailable [phone] Maxim Lanza MD Primary Care Provider [phone] Allergies No known active allergies Medications ocrelizumab (Ocrevus) 300 MG/10ML solution 10 mL if needed (twice a year for MS) Active albuterol HFA (Ventolin HFA) 90 mcg/act inhalerIndicatio ns:Chronic bronchitis, unspecified chronic bronchitis type (HCC) Inhale 2 puffs every 6 (six) hours if needed for wheezing or shortness of breath 18 g 1 4 Active cetirizine (ZyrTEC) 10 MG tabletIndication s:Acute non-recurrent frontal sinusitis Take 1 tablet (10 mg) by mouth Daily 30 tablet 2 5 Active ARIPiprazole (Abilify) 10 MG tabletIndication s:Major depressive disorder, recurrent, moderate (HCC),Generalize d anxiety disorder with panic attacks Take 1 tablet (10 mg) by mouth Daily 30 tablet 2 5 Active escitalopram (Lexapro) 10 MG tabletIndication s:Generalized anxiety disorder with panic attacks,Moderate episode of recurrent major depressive disorder (HCC) Take 1 tablet (10 mg) by mouth Daily 30 tablet 1 5 Active mirtazapine (Remeron) 15 MG tabletIndication s:Generalized anxiety disorder with panic attacks,Major depressive disorder, recurrent, moderate (HCC),Primary insomnia Take 1 tablet (15 mg) by mouth at bedtime 30 tablet 1 5 Active busPIRone (Buspar) 7.5 MG tabletIndication s:Generalized anxiety disorder with panic attacks Take 1 tablet (7.5 mg) by mouth every 8 (eight) hours if needed (anxiety) 90 tablet 5 Active nystatin (Mycostatin) 573433 UNIT/GM powderIndication s:Yeast dermatitis Apply topically 2 (two) times a day 60 g 1 5 08/24/19 26 Active Active Problems Problem Noted Date Diagnosed Date Mixed stress and urge urinary incontinence 08/23 Yeast dermatitis 08/23/2024 Body mass index (BMI) 45.0-49.9, adult Morbid (severe) obesity due to excess calories 0 06/25/2024 Assessment & Plan (08/18/2024 6:14 AM EDT): Discussed with patient their BMI (actual, verses recommended). We have also discussed lifestyle modifications: attempts to perform physical activity as chronic conditions allow, also to monitor dietary intake: increasing protein/fruits/veggies and lowering carb intake (unless contraindicated). Limit sodas, juices, and sugary drinks. Assessment & Plan (07/07/2024 6:43 AM EST): Discussed with patient their BMI (actual, verses recommended). We have also discussed lifestyle modifications: attempts to perform physical activity as chronic conditions allow, also to monitor dietary intake: increasing protein/fruits/veggies and lowering carb intake (unless contraindicated). Limit sodas, juices, and sugary drinks. Major depressive disorder, recurrent, moderate 0 06/25/2024 Overview (07/07/2024): 05/08/24: PHQ 9 score=11 MELISSA 7 score=5 07/07/24: PHQ=4, MELISSA 7=12 Assessment & Plan (08/18/2024 9:45 AM EDT): Current meds: abilify, lexapro, buspar Will add mirtazapine Assessment & Plan (07/07/2024 10:37 AM EST): Last appt added abilify and lowered dose on the lexapro to 10mg daily MELISSA 7=12, PHQ =4 Increase abililfy to 10 and buspar 5mg TID Fu in 6 weeks Encounter for subsequent [facility] visit (AWV) in Medicare patient 05/18/2024 Assessment & Plan (05/18/2024 6:24 AM EST): I have reviewed Ht/Wt/BMI, I have reviewed [...] basis Generalized anxiety disorder with panic attacks 05/18/2024 Overview (07/07/2024): Duloxetine, prozac and sertraline in the past 05/08/24: PHQ 9 score=11, MELISSA 7 score= 5 07/07/24: PHQ =4, MELISSA 7=12 Assessment & Plan (08/18/2024 9:44 AM EDT): Last appt increased dose of abilify to 10mg daily and buspar to 5mg TID, cont lexapro at 10mg daily Current meds: abilify, lexapro and buspar MELISSA 7=17 Assessment & Plan (07/07/2024 10:35 AM EST): Current meds: abilify, lexapro and buspar Will increase abilify to 10mg, increase buspar to 5mg TID Keep lexapro at 10mg PHQ 9=4 MELISSA 7=12 Assessment & Plan (05/18/2024 10:03 AM EST): Lexapro at 20mg anhedonia, and at 10mg not helping Will add buspar 5mg BID Add abilify at 5mg Fu in 4 weeks Menopause 03/05/2024 Needs flu shot 03/05/2024 Diverticulitis 02/03/2024 Assessment & Plan (02/03/2024 3:02 PM EDT): Fluids, atb, fu if not better If any fever, chills or worsening in symptoms go to ER Cubital tunnel syndrome of both upper extremitie s 01/23/2024 Abnormal weight gain 01/06/2024 Vitamin D deficiency 01/06/2024 Assessment & Plan (01/06/2024 10:22 AM EDT): Check labs Polyuria 01/06/2024 Assessment & Plan (01/06/2024 10:21 AM EDT): Will check urine and A1c for diabetes Polydipsia 01/06/2024 Assessment & Plan (01/06/2024 10:22 AM EDT): Check labs Metabolic syndrome 01/06/2024 Assessment & Plan (01/06/2024 10:22 AM EDT): Check labs Incontinence 10/10/2023 Assessment & Plan (10/10/2023 3:12 PM EDT): Limit caffine Trial oxybutynin XL, advised of common side effects Fu in 3 months LORENZO (obstructive sleep apnea) 07/30/2023 Assessment & Plan (05/18/2024 10:02 AM EST): You have a diagnosis of obstructive sleep apnea. It is recommended that you wear your PAP device any time while in bed sleeping. Not using the PAP device can increase your risk of elevated/uncontrolled high blood pressure, atrial fibrillation, heart attack, stroke, or sudden . Does not wear this , never has, dx 20 years ago Stroke 07/30/2023 Hyperlipidemia, acquired 07/30/2023 Assessment & Plan (01/06/2024 10:22 AM EDT): Check labs Hot flashes 07/30/2023 Abnormal CBC 07/30/2023 Contact with and (suspected) exposure to viral h epatitis 07/30/2023 Assessment & Plan (01/06/2024 10:22 AM EDT): Pt requests testing for Hep C , had it many years ago and was treated and is virus free Assessment & Plan (07/30/2023 6:15 PM EDT): Pt requests testing for Hep C , had it many years ago and was treated and is virus free COPD with exacerbation 06/26/2023 Assessment & Plan (06/26/2023 12:24 PM EST): Patient reports cough, SOB, wheezing, chest congestion, tightness x 1 week. No fever, chills, ear pain, discharge Former smoker and was told that she has COPD in 2017 based on PFTs. I could not locate her old PFTs results but it seems like she had moderate COPD as around the same time, moderate COPD was added to her diagnosis list by her previous PCP. She [...] regularly until her acute symptoms are better. 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 Assessment & Plan (06/05/2023 11:41 AM EST): Suspect this, has fu next month with MS doctor will talk to them about that at that time Chronic shoulder pain 05/01/2023 Assessment & Plan (12/02/2023 10:15 AM EDT): Asking for pain medication stronger than NSAID, was to have surgery last week, asking for something for intense left shoulder pain OARRS reviewed Does use medical marijuana, will prescribe #7 norco for her to take prn severe pain Assessment & Plan (05/01/2023 4:07 PM EST): Send in mobic Primary hypertension 04/30/2023 Assessment & Plan (01/06/2024 10:21 AM EDT): Stable at this time Assessment & Plan (06/26/2023 11:45 AM EST): Not on any medications currently. At goal without treatment. Recommended home BP monitoring and instructed to call office if persistently elevated BP above 140/90 Assessment & Plan (04/30/2023 6:08 PM EST): Stable at this time Class 3 severe obesity witho ut serious comorbidity with body mass index (BMI) of 45.0 to 49.9 in adult 04/30/2023 Assessment & Plan (05/18/2024 6:21 AM EST): Discussed with patient their BMI (actual, verses [...] no contra indications for this med otherwise Assessment & Plan (07/30/2023 6:14 PM EDT): Will see if any reason cannot use this d/t MS then if they say ok will trial script for wegovy Primary insomnia 04/30/2023 Assessment & Plan (08/18/2024 9:32 AM EDT): Would like to trial mirtazapine for sleep Assessment & Plan (05/18/2024 6:20 AM EST): Continue trazodone doing well when takes meds sleeps 7 hours Assessment & Plan (01/06/2024 10:21 AM EDT): Continue trazodone doing well when takes meds sleeps 7 hours Assessment & Plan (04/30/2023 6:08 PM EST): Continue trazodone Multiple sclerosis 04/30/2023 Assessment & Plan (07/07/2024 6:43 AM EST): Pt with hx of MS, used to follow with [facility], she did want to establish closer to area for neurology and she was referred to [facility]. She had 3 no shows so they will not see the patient At her last appt, I had advised her to re establish with her [facility] so that she can get her Ocrevus restarted Assessment & Plan (05/18/2024 6:19 AM EST): Continue with neurology and treatment Assessment & Plan (12/02/2023 10:12 AM EDT): Continue with neurology and treatment Assessment & Plan (10/10/2023 3:10 PM EDT): Cont with neurology Assessment & Plan (07/30/2023 6:10 PM EDT): Will check with MS doctor to make sure no contraindications for GLP1 Assessment & Plan (06/26/2023 11:46 AM EST): Patient follows up with Neurology, on Ocrevus. No neurological symptoms. Stable. Assessment & Plan (04/30/2023 6:10 PM EST): Cont with [facility] Encounter for screening mamm ogram for malignant neoplasm of breast 04/30/2023 Contracture, right ankle 04/26/2023 Primary osteoarthritis of left knee 11/08/2016 Primary osteoarthritis of right knee 11/08/2016 Cervical radiculopathy at C7 03/19/2015 Carpal tunnel syndrome 05/20/2002 Resolved Problems Problem Noted Date Diagnosed Date Resolved Date Acute cough 04/15/2024 05/18/2024 Acute non-recurrent frontal sinusitis 04/14/2024 07/02/2024 Assessment & Plan (06/17/2024 9:57 AM EST): Sinus congestion X2 weeks Ear ache Has tried OTC regimens with no relief. Will treat with Doxycycline x7 days, Flonase and Zyrtec. Return to office if symptoms worsen or do not improve. Candidiasis of skin 03/05/2024 07/02/19 Assessment & Plan (03/05/2024 11:14 AM EDT): D/t her arm being in a sling, she is requesting we use nystatin powder as cream and ointment is not something she can properly use at this time Abscess 01/06/2024 02/03/2024 Assessment & Plan (01/06/2024 10:32 AM EDT): Atb, warm compress, fu if not better Night sweats 07/30/2023 07/30/2023 Non-recurrent acute suppurat dallin otitis media of left ear without spontaneous rupture of tympanic membrane 06/26/2023 12/02/2023 Assessment & Plan (06/26/2023 12:25 PM EST): Left sided suppurative otitis media on exam - TM is intact. Likely the underlying reason that resulted in COPD exacerbation. Called in Augmentin for the patient. Anxiety and depression 04/30/202305/18 Assessment & Plan (05/18/2024 6:22 AM EST): Did increase lexapro to 20mg at last visit Has attended grief counseling, did not want to return, feels she has some goals she is working on and things to occupy her time Assessment & Plan (03/05/2024 11:13 AM EDT): We will increase dose on lexapro to 20mg daily Attended grief counseling, did not want to return, feels she has some goals she is working on and things to occupy her time Fu in 4 weeks Assessment & Plan (01/06/2024 10:22 AM EDT): Doing well on current meds no changes in doses Assessment & Plan (12/02/2023 10:14 AM EDT): suddenly last week, has been out of her lexapro for approx 10 days Needs refill, does not feel she is in need of other meds Will refill and fu in 4 weeks Assessment & Plan (06/26/2023 11:45 AM EST): On Lexapro, stable mood. No SI/HI. Assessment & Plan (06/05/2023 11:33 AM EST): Would like to stay at current dose of SSRI, is going to reach out to prior counselor, as she struggles with bringing up things in the past, and would like to stop doing this Fu in 3 months Assessment & Plan (04/30/2023 6:08 PM EST): Stable on current medications Fu in 3 months Simple chronic bronchitis 04/30/2023 Assessment & Plan (07/30/2023 6:11 PM EDT): #2 samples of breztri given exp 11/10 Rinse mouth after use Fu in 6 weeks Assessment & Plan (06/05/2023 11:34 AM EST): Needs new inhaler that insurance will cover Acquired hallux valgus 04/26/202306/26 Osteoarthritis of knee 04/26/202312/01 Depression 03/19/2015 06/25/2024 Overview (05/18/2024): Duloxetine and prozac, sertraline in the past PHQ 9=11, MELISSA =5 Assessment & Plan (05/18/2024 10:04 AM EST): Husbands over the last few months, worsened her symptoms Lexapro higher dose causes anhedonia, lower dose no effective Add abilify at 5mg daily Add buspar 5mg BID Fu in 4 weeks PHQ 9=11, MELISSA 7 =5 Encounters Date Type Department Care Team Description 11/05/2024 Patient Outreach [facility] [id number] [place] [address] Blank Rodriguez, LUNCHROOM WORKER 10/28/2024 Patient Outreach [facility] [address] [place] [address] Dian Guerin MA 10/23/2024 Patient Outreach [facility] [id number] [place] [address] Blank Rodriguez, SHANA 10/22/2024 Patient Outreach [address] [place] [address] Blank Rodriguez, LUNCHROOM WORKER 10/20/2024 Abstract [facility] [address] [place] [address] Kristin Gracia, KIRK 10/20/2024 Orders Only [facility] [address] [place] [address] Kristin Gracia, KIRK 10/17/2024 Clinisync Result Encounter [facility] External Department Unsolicited Provider, Generic External Data 10/14/2024 Patient Outreach [facility] [id number] [place] [address] Blank Rodriguez, LUNCHROOM WORKER 10/08/2024 Abstract [facility] [address] [place] [address] Maxim Lanza MD 10/07/2024 Patient Outreach [address] [place] [address] Blank Rodriguez, LUNCHROOM WORKER 09/30/2024 Patient Outreach [address] [place] [address] Blank Rodriguez, LUNCHROOM WORKER 09/21/2024 Patient Outreach [facility] [place] [address] RodriguezRemy vergaraia, LUNCHROOM WORKER 09/21/2024 Patient Outreach [facility] [place] [address] RodriguezRemy vergaraia, LUNCHROOM WORKER 09/18/2024 Clinisync Result Encounter [facility] External Department Unsolicited Rio Ennis MD 09/16/2024 Patient Outreach [address] [place] [address] RodriguezBlank vergara, LUNCHROOM WORKER 09/15/2024 Abstract [facility] [address] [place] [address] Unallocated, Nomaaliyah Pollock MD 09/09/2024 Patient Outreach [address] [place] [address] Blank Rodriguez, LUNCHROOM WORKER 09/02/2024 Patient Outreach [address] [place] [address] Remy Rodriguezia, LUNCHROOM WORKER 08/23/2024 Clinisync Result Encounter [facility] External Department Unsolicited Provider, Generic External Data 08/23/2024 Refill [facility] [address] [place] [id number] Kristin Gracia NP Mixed stress and urge urinary incontinence (Primary Dx); Yeast dermatitis 08/22/2024 Clinisync Result Encounter [facility] External Department Unsolicited Provider, Generic External Data 08/20/2024 Telephone [facility] [address] [place] [phone] Kristin Gracia NP Medication Question 08/18/2024 9:20 AM EDT Office Visit [facility] [address] [place] [phone] Kristin Gracia NP Generalized anxiety disorder with panic attacks (Primary Dx); Morbid (severe) obesity due to excess calories (CMS-HCC); Major depressive disorder, recurrent, moderate (HCC); Primary insomnia 08/18/2024 Bamboo flowsheet [facility] [address] [place] [address] Kristin Gracia NP 08/10/2024 Telephone [facility] [address] [place] [address] Kristin Gracia, KIRK Results from Last 3 Months Immunizations Immunization Administration Dates Next Due Influenza, High Dose Seasona l, Preservative Free 03/07/2022,03/19/2015,04/27/2014 Influenza, injectable, MDCK, preservative free, quadrivalent 03/05/2024 Influenza, injectable, quadr ivalent, preservative free 04/08/2020,03/20/2019,06/05/2018,02/27,04/03/2016,03/19/2015,04/27/2014 Influenza, intradermal, quad rivalent, preservative free 05/02/2023 Influenza, seasonal, injectable 04/30/2023 Pneumococcal Polysaccharide PPSV23 10/02/2016 Tdap 10/02/2016 Family History Medical History Relation Name Comments Hypertension Brother Cancer Father Aneurysm Mother Arthritis Mother Hypertension Mother Hypertension Paternal Grandfather Hypertension Sister Stroke Sister Relation Name Status Comments Brother Daughter Alive Father Mother Paternal Grandfather Sister Social History Tobacco Use Types Packs/Day Years Used Date Smoking Tobacco: Former Cigarettes Q uit: 12/29/2015 Passive Smoke Exposure: Past Smokeless Tobacco: Never Tobacco Cessation:Counseling Given: Not Answered Alcohol Use Standard Drinks/Week Comments Not Currently [...] How often do you attend chur or protestant services? 1 to 4 times per year 06/04/2023 Do you belong to any clubs o r organizations such as pentecostalism groups, unions, fraternal or athletic groups, or [...] Recorded Patient Health Questionnaire-2 Score 6 05/18/2024 [employer] [place] of Occupat ional Health - Occupational Stress [...] place to sleep or slept in a halfway (including now)? No 06/04/2023 Comments Unknown Sex and Gender Information Value Date Recorded Sex Assigned at Female 04/29/2023 4:00 PM EST Legal Sex Female 7:10 PM EDT Gender Identity Female 04/29/2023 4:00 PM EST Sexual Orientation Asexual 06/04/2023 10 :08 PM EST Last Filed Vital Signs Vital Sign Reading Time Taken Comments Blood Pressure 110/80 08/18/2024 9:18 AM EDT Pulse 98 08/18/2024 9:18 AM EDT Temperature 36.8 C (98.2 F) 08/18/2024 9:18 AM EDT Respiratory Rate 24 08/18/2024 9:18 AM EDT Oxygen Saturation 95% 08/18/2024 9:18 AM EDT Inhaled Oxygen Concentration - - Weight 123 kg (270 lb 3.2 oz) 08/18/2024 9:18 AM EDT Height 165.1 cm (5' 5 ) 05/18/2024 9:18 AM EST Body Mass Index 44.96 05/18/2024 9:18 AM EST Plan of Treatment Health Maintenance Due Date Last Done Comments CT Colonography 1968 FIT-DNA 1968 FIT 1968 FOBT 1968 Sigmoidoscopy 1968 HPV/Cotest 1998 Cervical Cancer Screening 03/07/2025 Pap Smear 03/07/2025 03/07/2022 Medicare Annual Wellness (AWV) 05/18/2025 05/18/2024 , 04/30/2023 Mammogram 06/30/2025 06/30/2024, 09/17/2012 Colonoscopy 09/22/2027 Colorectal Cancer Screening 09/22/2027 Influenza Vaccine Completed 03/05/2024, , 04/30/2023, Additional history exists Procedures Procedure Name Priority Date/Time Associated Diagnosis Comments COMPLETE ECHOCARDIOGRAM DOBUTAMINE STRESS TEST Routine 10/20/2024 8:01 AM EDT [place] [facility] [place] 10/17/2024 9:45 AM EDT BLOOD CULTURE 2 Routine 10/17/2024 2:55 AM EDT BLOOD CULTURE 1 Routine 10/17/2024 2:47 AM EDT BLOOD CULTURE 2 Routine 09/18/2024 6:10 PM EDT BLOOD CULTURE 1 Routine 09/18/2024 5:55 PM EDT ALL BASIC METABOLIC PANEL Routine 09/18/2024 2:05 PM EDT ALL CBC WITH AUTO DIFF Routine 2:05 PM EDT BLOOD CULTURE 2 Routine 08/23/2024 5:52 AM EDT BLOOD CULTURE 1 Routine 08/23/2024 5:46 AM EDT [place] [facility] [place] Routine 08/22/2024 10:45 PM EDT MM TOMOSYNTHESIS SCREENING BI 06/30/2024 11:32 AM EST from Last 3 Months or Most Recently Relevant to Health Maintenance Results * Complete echocardiogram dobutamine stress test (10/20/2024 8:01 AM EDT) Anatomical Region Laterality Modality Ultrasound Kristin Gracia NP CV ECHO PROCEDURES Final Result * (ABNORMAL) URINE CULTURE - FR (10/17/2024 9:45 AM EDT) Only the most recent of2 resultswithin the time period is included. [facility] [place] [facility] [place]rine Culture - FR Testing performed at [facility] [place]URE [place] [facility] [place] [address] [place] [address] [facility] URINE CULTURE - FR O:PROMIR Isolated [facility] URINE CULTURE - FR Urine Culture - FR [place] Count [facility] URINE CULTURE - FR >100,000 CFU/ml [facility] URINE [place]URE [place] [facility] [place] Organism: 1.1 Antibiotic Interpretation ROSE Status [facility] URINE CULTURE - FR Amikacin S F(S) [facility] URINE CULTURE - [facility] Amoxicillin/Clavul anate S F(S) [facility] URINE CULTURE - [facility] Ampicillin S F(S) [facility] URINE CULTURE - [facility] Aztreonam S F(S) [facility] URINE CULTURE - [facility] Ceftazidime S F(S) [facility] URINE CULTURE - [facility] Ceftazidime/Avibac egan S F(S) TB URINE CULTURE - [facility] Ceftolozane/Tazoba ctam S F(S) TB URINE CULTURE - [facility] Ciprofloxacin S F(S) TB URINE CULTURE - [facility] Ertapenem S F(S) TB URINE CULTURE - [facility] Gentamicin S F(S) TB URINE CULTURE - [facility] Levofloxacin S F(S) TB URINE CULTURE - [facility] Meropenem S F(S) TB URINE CULTURE - [facility] Meropenem/Vaborbac egan S F(S) TB URINE CULTURE - [facility] Tobramycin S F(S) TB URINE CULTURE - [facility] Ampicillin/Sulbact am S F(S) TB URINE CULTURE - [facility] Cefazolin S F(S) TB [place] [facility] [place] Cefepime S F(S) TB URINE CULTURE - FR Ceftriaxone S F(S) TB URINE CULTURE - [facility] Cefuroxime S F(S) TB [place] [facility] [place] Piperacillin/Tazob actam S F(S) TB URINE CULTURE - [facility] Trimethoprim/Sulfa S F(S) TB 10/17/2024 9:45 AM EDT 10/17/2024 9:56 AM EDT Narrative [facility] - 10/19/2024 10:55 AM EDT us Generic External Data Provider LAB BLOOD ORDERAB LES Final Result Performing Organization Address [facility] Co de Phone Number [facility] * BLOOD CULTURE 2 (10/17/2024 2:55 AM EDT) Only the most recent of3 resultswithin the time period is included. BLOOD CULTURE 2 Blood Culture 2 NG5D NO GROWTH AT 5 DAYS.^NO GROWTH AT 5 DAYS. [facility] 10/17/2024 2:55 AM EDT 10/17/2024 3:10 AM EDT Narrative [facility] - 10/22/2024 2:43 PM EDT us Generic External Data Provider LAB BLOOD ORDERAB LES Final Result Performing Organization Address [facility] Co de Phone Number [facility] * BLOOD CULTURE 1 (10/17/2024 2:47 AM EDT) Only the most recent of3 resultswithin the time period is included. BLOOD CULTURE 1 Blood Culture 1 NG5D NO GROWTH AT 5 DAYS.^NO GROWTH AT 5 DAYS. [facility] 10/17/2024 2:47 AM EDT 10/17/2024 3:10 AM EDT [facility] - 10/22/2024 2:43 PM EDT us Generic External Data Provider LAB BLOOD ORDERAB LES Final Result Performing Organization Address [facility]/ZIP Co de Phone Number [facility] * (ABNORMAL) ALL CBC WITH AUTO DIFF (09/18/2024 2:05 PM EDT) [facility] TB WBC 12.9(H) 4.0 - 11.0 10 3/uL [facility] RBC 4.32 4.20 - 5.40 10 6/uL [facility]H HGB 11.7(L) 12.0 - 16.0 g/dL [facility] TB[facility] HCT 37.9 36.0 - 48.0 % [facility] MCV 87.7 81.0 - 99.0 fL TBH TBH MCH 27.1 26.7 - 34.0 pg TBH TBH MCHC 30.9 29.9 - 35.2 g/dL [facility] RDW 14.9 11.0 - 15.0 % [facility] PLT 218 150 - 450 10 3/uL [facility] TBH MPV 11.5 9.5 - 13.5 fL [facility] NEUTROPHILS PERCENT AUTO 82.8(H) 43.0 - 75.0 % [facility] LYMPHOCYTES PERCENT AUTO 6.3(L) 20.5 - 60.0 % [facility] MONOCYTES PERCENT AUTO 7.5 1.7 - 12.0 % [facility] EO % 2.3 0.9 - 7.0 % [facility] BASOPHILS PERCENT AUTO 0.7 0.2 - 2.0 % [facility] IMMATURE GRANULOCYTES PCT AUTO 0.4 0.0 - 0.5 % [facility] NEUTROPHILS ABSOLUTE AUTO 10.7(H) 1.4 - 6.5 10 3/uL [facility] LYMPHOCYTES ABSOLUTE AUTO 0.8(L) 1.2 - 3.8 10 3/uL [facility] MONOCYTES ABSOLUTE AUTO 1.0(H) 0.3 - 0.8 10 3/uL [facility] TBH EO # 0.3 0.0 - 0.7 10 3/uL [facility] BASOPHILS ABSOLUTE AUTO 0.1 0.0 - 0.1 10 3/uL [facility] IMMATURE GRANULOCYTES ABS AUTO 0.05(H) 0.00 - 0.03 10 3/uL [facility] 09/18/2024 2:05 PM EDT 09/18/2024 3:02 PM EDT Narrative [facility] - 09/18/2024 3:22 PM EDT Rio Ennis MD [facility] Final Result Performing Organization Address [facility] Co de Phone Number [facility] * (ABNORMAL) ALL BASIC METABOLIC PANEL (09/18/2024 2:05 PM EDT) SODIUM 145 136 - 145 mmol/L [facility] POTASSIUM 5.5(H) 3.5 - 5.1 mmol/L [facility] CHLORIDE 107 98 - 107 mmol/L [facility] CARBON DIOXIDE 20.5(L) 21.0 - 32.0 mmol/L [facility] ANION GAP 23.0 [facility] GLUCOSE 115(H) 74 - 106 mg/dL [facility] BLOOD UREA NITROGEN 133.0(HH) 7.0 - 18.0 mg/dL [facility] Comment:RESULTS CALLED TO RODERICK Pedraza, RN CREATININE 15.68(HH) 0.55 - 1.02 mg/dL [facility] Comment:RESULTS CALLED TO FILIPE Pedraza, RN [facility]H EGFR-AF PALESTINIAN 3(L) >=60 mL/min/1.7 3m 2 TBH TBH EGFR-NON AF PALESTINIAN 2(L) >=60 mL/min/1.7 3m 2 [facility] BUN CREATININE RATIO 8.5 [facility] CALCIUM 8.9 8.5 - 10.1 mg/dL [facility] 09/18/2024 2:05 PM EDT 09/18/2024 3:02 PM EDT Narrative COREYISYNC - 09/18/2024 4:29 PM EDT [facility] DROP OFF [place] FARRELL Final Result Performing Organization Address City/[facility]/ZIP Co de Phone Number CLINISYNC [facility] * MM TOMOSYNTHESIS SCREENING BI (06/30/2024 11:32 AM EST) Anatomical Region Laterality Modality Other 06/30/2024 11:3 2 AM EST Narrative 06/30/2024 11:33 AM EST [facility] [place] [id number] Mammography Report Signed Patient: NITHYA VASQUEZ MR#: [id number] : 1970 Acct:[id number] Age/Sex: 54 / F ADM Date: 06/30/24 Loc: MAMMO Attending Dr: Kristin Gracia NP Ordering Physician: Kristin Gracia NP Results: Date of Service: 06/30/24 Follow Up: Procedure(s): MM tomosynthesis screening BI Accession Number(s): [id number] cc: Kristin Gracia NP Patient Name: NITHYA VASQUEZ MR#: [id number] : 1970 Exam Date: 06/30/2024 Ordering Doctor: [...] throat/lung cancer at age 56. LOCATION: The [facility] BREAST COMPOSITION: There are scattered areas [...] Signed By: 06/30/24 1133 DD/ 1132 TD/TT: Tug Hand: Procedure Note Radiology, Radiologist, - 06/30/2024 [place] [address] Mammography Report Signed Patient: NITHYA VASQUEZ FMR#: [id number] : 1970Acct:[id number] Age/Sex: 54 / FADM Date: 06/30/24 Loc: MAMMO Attending Dr: Kristin Gracia NP Ordering Physician: Kristin Gracia NPResults: Date of Service: 06/30/24Follow Up: Procedure(s): MM tomosynthesis screening BI Accession Number(s): [id number] cc: Kristin Gracia NP Patient Name: NITHYA VASQUEZ MR#: [id number] : 1970 Exam Date: 06/30/2024 Ordering Doctor: [...] throat/lung cancer at age 56. LOCATION: The [facility] BREAST COMPOSITION: There are scattered areas of fibroglandulardensity. FINDINGS: DIAGNOSTIC CATEGORY 1--NEGATIVE. NO CHANGE FROM COMPARISON ASSESSMENT. Scattered benign-appearing calcifications are present. RIGHT BREAST: No significant suspicious finding. LEFT BREAST: No significant suspicious finding. RECOMMENDATIONS: ROUTINE MAMMOGRAM AND CLINICAL EVALUATION IN 12 MONTHS. PLEASE NOTE: A NORMAL MAMMOGRAM DOES NOT EXCLUDE THE POSSIBILITY OFBREAST CANCER. A CLINICALLY SUSPICIOUS PALPABLE LUMP SHOULD BE BIOPSIED. Dictated by: Rivera Kenny MD on 06/30/2024 at 11:30 Approved by: Rivera Kenny MD on 06/30/2024 at 11:32 Dictated By: Rivera Kenny M.D. Signed By:06/30/24 1133 DD/ 1132 TD/TT: Tug Hand: Kristin Gracia NP CLIN[facility] IMAGING Final Result from Last 3 Months or Most Recently Relevant to Health Maintenance Insurance [facility] [place] [address] Care Teams Armor Officer Relationship Specialty Start Date End Date Maxim Lanza MD [address] [place] [phone] PCP - General Family Medicine 07/15/23 Kristin Gracia NP [address] [place] [address] Primary Care Provider Family Medicine 05/20/22
--- OUTSIDE RECORDS SUMMARY | 2024-11-07 10:53 | XMS_ITS | Encounter Summary ---
Author Organization [facility] Address [facility] [place] [address] Care Team Providers Care Sign Painter Apprentice Name Role Phone Kirk Wyatt Segundo Primary Care Provider Frances Hills (Rn) electronic device repairer Provider Valdez Bhandari MD Primary Care Provider [phone] Dian Smith PA-C Unavailable + [phone] Malinda Lopez APRN.WAX SPECIALIST Unavailable + [phone] Source Comments In the event this information is protected by the Federal Confidentiality of Alcohol and Drug AbusePatient Records regulations: The Federal rules restrict any use of the information to criminally investigate or prosecute any alcohol or drug abuse patient.[facility] Encounter Details Date Type Department Care Team (Late st Contact Info) Description 09/14/2015 Patient Msg Medical Records [address] [place] [address] Provider, [facility] labs Social History Tobacco Use Types Packs/Day Years Used Date Smoking Tobacco: Every Day Cigarettes 1 20 Comments:plans to try to freyd t at some point but not ready. [...] documented as of this encounter Care Teams Sign Painter Apprentice Relationship Specialty Start Date End Date Wyatt Bradley PCP - General Internal Medicine 05/21/12 12/05/17 Frances Hills (Rn), RN PCP - General 12/06/17 10/31/20 Valdez Acosta MD [address] [place] [address] PCP - General Internal Medicine 11/01/20 Dian Smith PA-C [address] [place], [place] [phone] Poultry Offal Icer Internal Medicine 04/26/24 05/21/24 Malinda Lopez, FORM BUILDER HELPER.[facility] [address] [place] [id number] Poultry Offal Icer Family Medicine 04/26/24 documented as of this encounter
--- OUTSIDE RECORDS SUMMARY | 2024-11-07 10:53 | XMS_ITS ---
Author Organization [facility] Address [address] [facility] [place] [address] Care Team Providers Care Test Eng Name Role Phone Kristin Gracia NP Unavailable [phone] Maxim Lanza MD Primary Care Provider [phone] [facility] Facility Transitional Care Management Status:Closed (Closed) Start date:10/22/2024 Enrollment date:10/23/2024 Enrollment reason:Identified using hospital discharge data End date:11/05/2024 Close reason:Not eligible Overview Patient discharged from [facility] on 10/22. Patient admitted to [facility]. Please contact SNF facility for JENNIFER (inpt to SNF) within 48 hours. <November 05, 2024, 10:30 - Blank Rodriguez LPN> roasterman care at [facility] Continued Care and Services Coordination
--- OUTSIDE RECORDS SUMMARY | 2024-11-07 10:53 | XMS_ITS | Encounter Summary ---
Author Organization [facility] Address [address] [place] [address] Care Team Providers Care Drapery Estimator Name Role Phone Basil Kristin CRTS Unavailable [phone] Maxim Lanza MD Primary Care Provider [phone] Encounter Details Date Type Department Care Team (Late st Contact Info) Description 11/05/2024 Patient Outreach [facility] [address] [place] [address] Blank Rodriguez LPN Social History Tobacco Use Types Packs/Day Years [...] often do you attend chur ch or adventism services? 1 to 4 times per year 06/04/2023 Do you belong to any clubs o r organizations such as sabianism groups, unions, fraternal or athletic groups, or [...] Recorded Patient Health Questionnaire-2 Score 6 05/18/2024 [facility] Occupat ional Health [...] place to sleep or slept in a fci (including now)? 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 Closing program documented in this encounter Plan of Treatment Not on file documented as of this encounter Visit Diagnoses Not on filedocumented in this encounter Additional Health Concerns Assessment Noted Time PHQ-9 Depression Total Score: 18 05/18/2 024 9:00 AM EST documented as of this encounter Care Teams Drapery Estimator Relationship Specialty Start Date End Date Maxim Lanza MD [address] [place] [address] PCP - General Family Medicine 07/15/23 Kristin Gracia NP [address] [place] [address] Primary Care Provider Family Medicine 05/20/22 documented as of this encounter
--- OUTSIDE RECORDS SUMMARY | 2024-11-07 10:53 | XMS_ITS | Encounter Summary ---
Author Organization [facility] Address [address] [place] [address] Care Team Providers Care Steel Pourer Helper Name Role Phone HarveyKristin yu REPORT ANALYST Unavailable [phone] Maxim Lanza MD Primary Care Provider [phone] Encounter Details Date Type Department Care Team (Late st Contact Info) Description 09/15/2024 Abstract [facility] [address] [place] [address] Unallocated, Noms Provider, [address] [facility] [place], [place] [phone] Social History Tobacco Use Types Packs/Day Years [...] week 06/04/2023 How often do you attend [facility] or sikhism services? 1 to 4 times per year 06/04/2023 Do you belong to any clubs o r organizations such as temple groups, unions, fraternal or athletic groups, or [...] Recorded Patient Health Questionnaire-2 Score 6 05/18/2024 [facility] Occupat ional Health - Occupational [...] place to sleep or slept in a alf (including now)? No 06/04/2023 Comments Unknown Sex [...] documented as of this encounter Care Teams Steel Pourer Helper Relationship Specialty Start Date End Date Maxim Lanza MD [address] [place] [address] PCP - General Family Medicine 07/15/23 Kristin Gracia NP [address] [place] [address] Primary Care Provider Family Medicine 05/20/22 documented as of this encounter
--- OUTSIDE RECORDS SUMMARY | 2024-11-07 10:53 | XMS_ITS | Encounter Summary ---
Author Organization [facility] Address [facility] [place] [address] Care Team Providers Care Is Technician Name Role Phone Valdez Acosta MD Primary Care Provider [phone] Dian Smith PA-C Unavailable [phone] Malinda Lopez APRN.NURSE ESTHETICIAN Unavailable + [phone] Source Comments In the event this information is protected by the Federal Confidentiality of Alcohol and Drug AbusePatient Records regulations: The Federal rules restrict any use of the information to criminally investigate or prosecute any alcohol or drug abuse patient.[facility] Encounter Details Date Type Department Care Team (Late st Contact Info) Description 05/03/2023 Patient Msg Neurology [address] [place] [phone] Provider, [facility] New Year Insurance Verification Social History Tobacco Use Types Packs/Day Years [...] Never 08/02/2020 How often do you attend pentecostalism or oriental orthodox serv ices? Never 08/02/2020 [...] Answer Date Recorded PHQ-2 score 1 05/01/2023 [facility] - Occupational Stress Questionnaire Answer Date [...] is lower risk 4 09/20/2022 Data from: https://www.neighborhoodatlas.medicine.[facility].edu/. Last address used for calculation [address] [...] on filedocumented in this encounter Care Teams Is Technician Relationship Specialty Start Date End Date Valdez Acosta MD [address] [place] [address] PCP - General Internal Medicine 11/01/20 Dian Smith PA-C [facility] [place] [address] Vehicle Sales Professional Internal Medicine 04/26/24 05/21/24 Malinda Lopez APRN.NURSE ESTHETICIAN [address] [place] [address] Vehicle Sales Professional Family Medicine 04/26/24 documented as of this encounter
--- OUTSIDE RECORDS SUMMARY | 2024-11-07 10:53 | XMS_ITS | Encounter Summary ---
Author Organization [facility] Address [address] [place] [address] Care Team Providers Care Wind Turbine Machinist Name Role Phone Kristin Gracia CARBON ELECTRODES SUPERVISOR Unavailable [phone] Maxim Lanza MD Primary Care Provider [phone] Encounter Details Date Type Department Care Team (Late st Contact Info) Description 10/20/2024 Orders Only [facility] [address] [place] [address] Kristin Gracia, CARBON ELECTRODES SUPERVISOR [address] [place] [phone] Social History Tobacco Use Types Packs/Day Years [...] How often do you attend chur or voodoo services? 1 to 4 times per year 06/04/2023 Do you belong to any clubs o r organizations such as religion groups, unions, fraternal or athletic groups, or [...] place to sleep or slept in a penitentiary (including now)? No 06/04/2023 Comments Unknown Sex and Gender Information Value Date Recorded Sex Assigned at Female 04/29/2023 4:00 PM EST Legal Sex Female 7:10 PM EDT Gender Identity Female 04/29/2023 4:00 PM EST Sexual Orientation Asexual 06/04/2023 10 :08 PM EST documented as of this encounter Plan of Treatment Not on file documented as of this encounter Procedures Procedure Name Priority Date/Time Associated Diagnosis Comments COMPLETE ECHOCARDIOGRAM DOBUTAMINE STRESS TEST Routine 10/20/2024 8:01 AM EDT documented in this encounter Results * Complete echocardiogram dobutamine stress test (10/20/2024 8:01 AM EDT) Anatomical Region Laterality Modality Ultrasound us Kristin Gracia NP CV ECHO PROCEDURES Final Result documented in this encounter Visit Diagnoses Not on filedocumented in this encounter Additional Health Concerns Assessment Noted Time PHQ-9 Depression Total Score: 18 05/18/ 024 9:00 AM EST documented as of this encounter Care Teams Wind Turbine Machinist Relationship Specialty Start Date End Date Maxim Lanza MD [address] [place] [address] PCP - General Family Medicine 07/15/23 Kristin Gracia NP [address] [place] [address] Primary Care Provider Family Medicine 05/20/22 documented as of this encounter
--- OUTSIDE RECORDS SUMMARY | 2024-11-07 10:53 | XMS_ITS | Encounter Summary ---
Author Organization [facility] Address [facility] [place] [address] Care Team Providers Care Management Psychologist Name Role Phone Valdez Acosta MD Primary Care Provider [phone] Dian Smith PA-C Unavailable [phone] Malinda Lopez APRN.TUNNEL DRIER OPERATOR Unavailable + [phone] Source Comments In the event this information is protected by the Federal Confidentiality of Alcohol and Drug AbusePatient Records regulations: The Federal rules restrict any use of the information to criminally investigate or prosecute any alcohol or drug abuse patient.[facility] Encounter Details Date Type Department Care Team (Late st Contact Info) Description 09/08/2021 Patient Msg Neurology [address] [place] [place] [phone] Provider, Ccskyler For infusion approval you needed an appointment with the first available DIANE. You have been scheduled for the following appointment(s): Social History Tobacco Use Types Packs/Day Years [...] Never 08/02/2020 How often do you attend lutheran or scientologist serv ices? Never 08/02/2020 Do you belong to any clubs o r organizations such as lutheran groups, unions, fraternal or athletic groups, or [...] Answer Date Recorded PHQ-2 score 5 10/30/2020 [facility] - Occupational Stress Questionnaire Answer Date Recorded [...] N ot on file 04/27/2020 Data from: https://www.neighborhoodatlas.medicine.[facility].edu/. Last address used for calculation Not on [...] on filedocumented in this encounter Care Teams Management Psychologist Relationship Specialty Start Date End Date Valdez Acosta MD [address] [place] [address] PCP - General Internal Medicine 11/01/20 Dian Smith PA-C [address] [place] [address] Delivery And Mail Sorter Internal Medicine 04/26/24 05/21/24 Malinda Lopez APRN.TUNNEL DRIER OPERATOR [address] [place] [address] Delivery And Mail Sorter Family Medicine 04/26/24 documented as of this encounter
--- OUTSIDE RECORDS SUMMARY | 2024-11-07 10:53 | XMS_ITS | Encounter Summary ---
Author Organization [facility] Address [address] [place] [address] Care Team Providers Care Art Critic Name Role Phone Kirk Wyatt Segundo Primary Care Provider Frances Hills (Rn) environmental field office manager Provider Valdez Bhandari MD Primary Care Provider [phone] Dian Smith PA-C Unavailable [phone] Malinda Lopez APRN.COURT COMMISSIONER Unavailable + [phone] Source Comments In the event this information is protected by the Federal Confidentiality of Alcohol and Drug AbusePatient Records regulations: The Federal rules restrict any use of the information to criminally investigate or prosecute any alcohol or drug abuse patient.[facility] Reason for Visit * Reason Comments Medication Preauthorization [employer] Encounter Details Date Type Department Care Team (Late st Contact Info) Description 12/23/2015 [facility] [address] [address] [place] [address] [place] [address] Medication Preauthorization ([employer]) Social History Tobacco Use Types Packs/Day Years [...] documented as of this encounter Care Teams Art Critic Relationship Specialty Start Date End Date Wyatt Bradley PCP - General Internal Medicine 05/21/12 12/05/17 Frances Hills (Rn), RN PCP - General 12/06/17 10/31/20 Valdez Acosta MD [address] [place] [address] PCP - General Internal Medicine 11/01/20 Dian Smith PA-C [facility] [place] [address] Lead Assistant Manager Internal Medicine 04/26/24 05/21/24 Malinda Lopez, VETERINARY PHARMACOLOGIST.[facility] [address] [place] [address] Lead Assistant Manager Family Medicine 04/26/24 documented as of this encounter
--- OUTSIDE RECORDS SUMMARY | 2024-11-07 10:53 | XMS_ITS | Encounter Summary ---
Author Organization [facility] Address [address] [place] [address] Care Team Providers Care Classified Advertising Manager Name Role Phone Valdez Acosta MD Primary Care Provider [phone] Dian Smith PA-C Unavailable [phone] Malinda Lopez APRN.COLLAR BAND CREASER Unavailable + [phone] Source Comments In the event this information is protected by the Federal Confidentiality of Alcohol and Drug AbusePatient Records regulations: The Federal rules restrict any use of the information to criminally investigate or prosecute any alcohol or drug abuse patient.[facility] Encounter Details Date Type Department Care Team (Late st Contact Info) Description 03/15/[address] [facility] [address] [place] [phone] Provider, Ccf Please call to reschedule Follow up appointment Social History Tobacco Use Types Packs/Day Years [...] Never 08/02/2020 How often do you attend christian or restoration serv ices? Never 08/02/2020 Do you belong to any clubs o r organizations such as christian groups, unions, fraternal [...] Answer Date Recorded PHQ-2 score 5 10/30/2020 [facility] - Occupational Stress Questionnaire Answer Date [...] place to sleep or slept in a skilled nursing (including now)? No 08/02/2020 Area Deprivation Index Answer Date Chris rded National Score (1-100), lower number is lower ri sk Not on file 04/27/2020 State Score (1-10), lower number is lower risk N ot on file 04/27/2020 Data from: https://www.neighborhoodatlas.medicine.[facility].edu/. Last address used for calculation Not [...] on filedocumented in this encounter Care Teams Classified Advertising Manager Relationship Specialty Start Date End Date Valdez Acosta MD [address] [place] [address] PCP - General Internal Medicine 11/01/20 Dian Smith PA-C [facility] [place] [address] Tin Stacker Internal Medicine 04/26/24 05/21/24 Malinda Lopez APRN.COLLAR BAND CREASER [address] [place] [address] Tin Stacker Family Medicine 04/26/24 documented as of this encounter
--- OUTSIDE RECORDS SUMMARY | 2024-11-07 10:53 | XMS_ITS | Encounter Summary ---
Author Organization [facility] Address [facility] [place] [address] Care Team Providers Care Candy Wrapping Machine Operator Name Role Phone Kirk Wyatt Segundo Primary Care Provider Frances Hills (Rn) planner scheduler Provider Valdez Bhandari MD Primary Care Provider [phone] Dian Smith PA-C Unavailable + [phone] Malinda Lopez APRN.LIFE SCIENCES TEACHER Unavailable + [phone] Source Comments In the event this information is protected by the Federal Confidentiality of Alcohol and Drug AbusePatient Records regulations: The Federal rules restrict any use of the information to criminally investigate or prosecute any alcohol or drug abuse patient.[facility] Encounter Details Date Type Department Care Team (Late st Contact Info) Description 08/30/2016 Patient Msg Medical Records [address] [place] [address] Provider, [facility] Labs Social History Tobacco Use Types Packs/Day Years [...] documented as of this encounter Care Teams Candy Wrapping Machine Operator Relationship Specialty Start Date End Date Wyatt Bradley PCP - General Internal Medicine 05/21/12 12/05/17 Frances Hills (Rn), RN PCP - General 12/06/17 10/31/20 Valdez Acosta MD [address] [place] [address] PCP - General Internal Medicine 11/01/20 Dian Smith PA-C [address] [place], [place] [phone] Transit Mix Operator Internal Medicine 04/26/24 05/21/24 Malinda Lopez, SEAT BUILDER.[facility] [address] [place] [address] [phone] Transit Mix Operator Family Medicine 04/26/24 documented as of this encounter
--- OUTSIDE RECORDS SUMMARY | 2024-11-07 10:53 | XMS_ITS | Encounter Summary ---
Author Organization [facility] Address [address] [place] [address] Care Team Providers Care Scowman Name Role Phone Valdez Acosta MD Primary Care Provider [phone] Dian Smith PA-C Unavailable + [phone] Malinda Lopez APRN.[facility] Unavailable + [phone] Source Comments In the event this information is protected by the Federal Confidentiality of Alcohol and Drug AbusePatient Records regulations: The Federal rules restrict any use of the information to criminally investigate or prosecute any alcohol or drug abuse patient.[facility] Encounter Details Date Type Department Care Team (Late st Contact Info) Description 10/30/2023 [facility] [address] [place], [place] [phone] Aylin Garrison PA-C [address] [place] [address] MRI @ Upcoming appt. 12/10/23 Social History Tobacco Use Types Packs/Day Years [...] Never 08/02/2020 How often do you attend rastafari or confucianist serv ices? Never 08/02/2020 Do you belong to any clubs o r organizations such as rastafari groups, unions, fraternal or athletic groups, or [...] Answer Date Recorded PHQ-2 score 5 09/05/2023 [facility] of Occupat ional Health - Occupational [...] place to sleep or slept in a jail (including now)? No 08/02/2020 Area Deprivation Index Answer Date Chris rded National Score (1-100), lower number is lower ri sk 63 09/20/2022 State Score (1-10), lower number is lower risk 4 09/20/2022 Data from: https://www.neighborhoodatlas.medicine.[facility].edu/. Last address used for calculation [address] 09/20/2022 Education Answer Date Recorded What [...] on filedocumented in this encounter Care Teams Scowman Relationship Specialty Start Date End Date Valdez Acosta MD [address] [place] [address] PCP - General Internal Medicine 11/01/20 Dian Smith PA-C [address] [place] [address] Dust Brush Assembler Internal Medicine 04/26/24 05/21/24 Malinda Lopez APRN.BOW MACHINE OPERATOR [address] [place] [address] Dust Brush Assembler Family Medicine 04/26/24 documented as of this encounter
--- OUTSIDE RECORDS SUMMARY | 2024-11-07 10:53 | XMS_ITS | Encounter Summary ---
Author Organization [facility] Address [address] [place] [id number] Care Team Providers Care Surgical Rn Name Role Phone Valdez Acosta MD Primary Care Provider [phone] Dian Smith PA-C Unavailable + [phone] Malinda Lopez APRN.RECEIVER STOCKER Unavailable + [phone] Source Comments In the event this information is protected by the Federal Confidentiality of Alcohol and Drug AbusePatient Records regulations: The Federal rules restrict any use of the information to criminally investigate or prosecute any alcohol or drug abuse patient.[facility] Encounter Details Date Type Department Care Team (Late st Contact Info) Description 11/12/2021 [place] [address] Provider, Ccf Questionnaire Submission Social History Tobacco Use Types Packs/Day Years [...] How often do you attend lutheran or congregational serv ices? Never 08/02/2020 Do you belong [...] Answer Date Recorded PHQ-2 score 5 09/15/2021 [facility] - [...] place to sleep or slept in a assisted (including now)? No 08/02/2020 Area Deprivation Index Answer Date Chris rded National Score (1-100), lower number is lower ri sk 60 11/14/2021 State Score (1-10), lower number is lower risk N ot on file 11/14/2021 Data from: https://www.neighborhoodatlas.medicine.[facility].edu/. Last address used for calculation [address] 11/14/2021 Education Answer Date Recorded What [...] Exposure Response Date Recorded In the last 10 days, have yo u been in contact with someone who was confirmed or suspected to have Coronavirus/COVID-19? No / Unsure 11/14/2021 7:16 AM EDT documented as of this encounter [...] on filedocumented in this encounter Care Teams Surgical Rn Relationship Specialty Start Date End Date Valdez Acosta MD [address] [place] [address] PCP - General Internal Medicine 11/01/20 Dian Smith PA-C [address] [place] [id number] Assembler Metal Furniture Internal Medicine 04/26/24 05/21/24 Malinda Lopez APRN.RECEIVER STOCKER [address] [place] [id number] Assembler Metal Furniture Family Medicine 04/26/24 documented as of this encounter
--- OUTSIDE RECORDS SUMMARY | 2024-11-07 10:53 | XMS_ITS | Encounter Summary ---
Author Organization [facility] Address [facility] [place] [address] Care Team Providers Care School Crossing Guard Name Role Phone Valdez Acosta MD Primary Care Provider [phone] Dian Smith PA-C Unavailable [phone] Malinda Lopez APRN.ENGINEERING ASSOCIATE Unavailable + [phone] Source Comments In the event this information is protected by the Federal Confidentiality of Alcohol and Drug AbusePatient Records regulations: The Federal rules restrict any use of the information to criminally investigate or prosecute any alcohol or drug abuse patient.[facility] Encounter Details Date Type Department Care Team (Late st Contact Info) Description 07/05/2023 Patient Msg Neurology [address] [phone] Provider, Ccf Please Call [employer] Social History Tobacco Use Types Packs/Day Years [...] Never 08/02/2020 How often do you attend samaritan or anabaptism serv ices? Never 08/02/2020 Do you belong to any clubs o r organizations such as samaritan groups, unions, fraternal or athletic groups, or [...] Answer Date Recorded PHQ-2 score 1 05/01/2023 [facility] - Occupational Stress Questionnaire Answer Date [...] is lower risk 4 09/20/2022 Data from: https://www.neighborhoodatlas.medicine.[facility].edu/. Last address used for calculation [address] [...] on filedocumented in this encounter Care Teams School Crossing Guard Relationship Specialty Start Date End Date Valdez Acosta MD [address] [place] [address] PCP - General Internal Medicine 11/01/20 Dian Smith PA-C [facility] [place] [address] Java Groovy Developer Internal Medicine 04/26/24 05/21/24 Malinda Lopez APRN.ENGINEERING ASSOCIATE [address] [place] [id number] Java Groovy Developer Family Medicine 04/26/24 documented as of this encounter
--- OUTSIDE RECORDS SUMMARY | 2024-11-07 10:53 | XMS_ITS | Encounter Summary ---
Author Organization [facility] Address [facility] [place] [address] Care Team Providers Care Clinical Psychologist Licensed Name Role Phone Kirk Wyatt Segundo Primary Care Provider Frances Hills (Rn) inspector aluminum boat Provider Valdez Bhandari MD Primary Care Provider [phone] Dian Smith PA-C Unavailable + [phone] Malinda Lopez APRN.CANTEEN MANAGER Unavailable + [phone] Source Comments In the event this information is protected by the Federal Confidentiality of Alcohol and Drug AbusePatient Records regulations: The Federal rules restrict any use of the information to criminally investigate or prosecute any alcohol or drug abuse patient.[facility] Encounter Details Date Type Department Care Team (Late st Contact Info) Description 06/26/2016 Patient Msg Medical Records [address] [place] [address] Provider, Ccf labs Social History Tobacco Use [...] documented as of this encounter Care Teams Clinical Psychologist Licensed Relationship Specialty Start Date End Date Wyatt Bradley PCP - General Internal Medicine 05/21/12 12/05/17 Frances Hills (Rn), RN PCP - General 12/06/17 10/31/20 Valdez Acosta MD [address] [place] [address] PCP - General Internal Medicine 11/01/20 Dian Smith PA-C [address] [place], [place] [phone] Public Transit Specialist Internal Medicine 04/26/24 05/21/24 Malinda Lopez, CONSUMER AFFAIRS MANAGER.[facility] [address] [place] [address] [phone] Public Transit Specialist Family Medicine 04/26/24 documented as of this encounter
--- OUTSIDE RECORDS SUMMARY | 2024-11-07 10:54 | XMS_ITS | Encounter Summary ---
Author Organization [facility] Address [address] [place] [address] Care Team Providers Care Filler Shredding Machine Loader Name Role Phone KatrinaDinah lybony Ho Primary Care Provider [phone] Pcp, Fartun WOODWORKING BELT SANDER Primary Care Provider [facility] Wyatt Costa Primary Care Provider Frances Hills (Rn) hand winder Provider Valdez Bhandari MD Primary Care Provider [phone] Dian Smith PA-C Unavailable + [phone] Malinda Lopez APRN.[facility] Unavailable + [phone] Source Comments In the event this information is protected by the Federal Confidentiality of Alcohol and Drug AbusePatient Records regulations: The Federal rules restrict any use of the information to criminally investigate or prosecute any alcohol or drug abuse patient.[facility] Encounter Details Date Type Department Care Team (Late st Contact Info) Description 08/13/2005 Abstract General Surgery [address] [phone] Tari Chavira MD [address] [phone] Social History Tobacco Use Types Packs/Day Years Used Date Smoking Tobacco: Never Assessed Comments No Sex and Gender Information Value Date Recorded Sex Assigned at Female 08/02/2020 9:22 AM EDT Legal Sex Female 10:06 AM EST Gender Identity Female 08/02/2020 9:22 AM EDT Sexual Orientation Straight 08/02/2020 9: 22 AM EDT documented as of this encounter Nursing Notes * 08/13/2005 12:00 PM EST >> YAHAIRA SAM MA 08/13/2005 12:31 pm This 35 year old female submitted a completed questionnaire to [facility] for consideration of weight management surgery. Her history below is as outlined by the patient in her questionnaire response. WEIGHT HISTORY Pt states her current height is 68 and her current weight is 340 #. Wt over time: Age 8 pt was 120 lbs Age 16 pt was 195 lbs. Age 23 pt was 290 lbs. Age 28 pt was 250 lbs. Age 33 pt was 310 lbs. Heaviest weight, not counting pregnancies: 340 Diets Attempted: Low Calorie in 1997 over 12 months with weight loss of 40 #. Low Carbohydrate in 2003 over 03 months with weight loss of 16 #. [facility] in 2000 over 07 months with weight loss of 17.#. Chava Russell in 1996 over 09 months with weight loss of 22 #. Diet Medications taken: Patient did not use any diet medications for weight loss. Of the medications taken, which were physician supervised? Not applicable. Behavioral Diet Measures: Hypnosis in 2001 for not stated months with weight loss of 0 lbs. MEDICATIONS Allergies: Review of patient's allergies indicates: Penicillins Current Medications: Current outpatient prescriptions EFFEXOR 75 MG TAB, Take 1 tablet daily WOMENS ROLDAN JONY ORAL PACK, take one (1) tablet daily PRIOR SURGERY: Past Surgical History: EXPL/TREAT WRST JOINT, RAD/MID CARP Prior difficulty with anesthesia: No. MEDICAL HISTORY: Past Medical History: CHRONIC BRONCHITIS NEC IRON DEFIC ANEMIA NOS 782.3 Edema VARICOSE VEINS NEC JOINT PAIN-MULT JTS Broken bones? None. Therapy or medications for any emotional disorders? No emotional diagnosis. No hospitalizations. 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 Caffeine History: Coffee: 02 - 6 oz servings. and Soda : 02 - 12 oz. servings. Tobacco History: Patient quit. StartedCirgarettes Pt started using tobacco at age 15; with 17 yrs of regular use. Pt use is 1 1/2 ppd. Alcohol History: Yes. Liquor: 03 1 oz. drinks per month. History of alcohol dependency: Pt states no treatment received. Drug History: No, patient denies history of drug use. FAMILY HISTORY: @ family history. Review of patient's family history indicates: Stroke Mother Hypertension Mother Thyroid Mother Heart Father Cancer Father Thyroid Maternal Grandmother CHASSIS WIRER HISTORY Date of last senior bioinformatics scientist exam? 08/2001;performed by Dr. Gauthier; whose phone # is [phone] Did you have aPAP test at the time of this exam? Yes Have you ever had an abnormal PAP test? No Have you ever had polycystic ovarian syndrome? No Currently ? No History of Pregnancies Have you ever been ? Yes. Number of live births 02, Number of stillbirths 00., Number of Miscarriages 00. and Number of Abortions 00 . Have you had an evaluation of Infertility? No History of Infertility Treatment: No. Menstrual History: Currently menstrating Yes. 12 periods in the last 12 months, occuring approximatly every 26 days. PCOS Screening: Weight & Insulin-based Problems: Excess weight centered around middle and Family hx of diabetes, heart disease or HTN EPWORTH SLEEPINESS SCALE SCORE: 12 Observed Sleep Apnea: Yes Family hx sleep apnea: No. BINGE EATING SCORE (Eating Habits Checklist): 16 EXERCISE HABITS QUESTIONNAIRE Past week different in terms of extended injury, illness or vacation? No In past week has patient been about as active as usual. In past week climbed UP avg 02 flights of stairs In past week walked an avg of 08 blocks per day Sport or recreation in past week: Sport: cycling; 03 times in last week for 20 avg minutes per episode Avg. hrs / week watching TV / Cable / VCR: 11 - 20 Excluding TV time, avg. hrs / week spent sittin - 20 GRWQ Pt's Goal Wt: 180 lbs Dream Weight: 180 lbs Happy Weight: 220 lbs. Acceptable Weight: 240 lbs. Disappointing Weight: 270 lbs Single most important thing that pt expects to change as result of wt loss: Health I have always told my daughter you do not have to be skinny to be healthy. Not true!She now weighs 240 pounds and she is 14 years of age.You do not realize it is killing you at 8 years old 20,30 by the time you are 33 or 38 you are wishing you could have changed it all. Patient was referred to this program by [facility] Primary Care Physician Yahaira Sam Ma documented in this encounter Plan of Treatment Not on file documented as of this encounter Visit Diagnoses Not on filedocumented in this encounter Additional Health Concerns Infection Onset Date Last Indicated Resolved Time COVID-19 Rule-Out 08/06/2020 08/05/2020 08/26/2020 8:53 PM EDT documented as of this encounter Care Teams Filler Shredding Machine Loader Relationship Specialty Start Date End Date KatrinaDinah lybony Ho [address] [place] [id number] PCP - General 05/23/04 11/15/11 Fartun Conti WOODWORKING BELT SANDER PCP - General 11/16/11 05/20/12 Wyatt Bradley PCP - General Internal Medicine 05/21/12 12/05/17 Frances Hills (Rn), RN PCP - General 12/06/17 10/31/20 Valdez Acosta MD [address] [place] [address] PCP - General Internal Medicine 11/01/20 Dian Smith PA-C [address] [place] [address] [phone] Lead Pastor Internal Medicine 04/26/24 05/21/24 Malinda Lopez, WOODWORKING BELT SANDER.BROACH SETTER [address] [place] [address] [phone] Lead Pastor Family Medicine 04/26/24 documented as of this encounter
--- OUTSIDE RECORDS SUMMARY | 2024-11-07 10:54 | XMS_ITS | Clinical Summary ---
Author Organization [employer] tem Address [facility] [id number] [address] [place] [address] Care Team Providers Care Grades 9 Through 12 Teacher Name Role Phone Kristin Gracia CONSULTING NETWORKING ENGINEER-POLITICAL SCIENCE INSTRUCTOR Primary Care Provider Allergies No known active allergies Medications mirtazapine (REMERON CANDI-TAB) 15 mg disintegrating tablet Dissolve 1 tablet (15 mg total) on tongue nightly. Active acetaminophen (TYLENOL) 325 mg tablet Take 2 tablets (650 mg total) by mouth every 6 (six) hours as needed for pain. Active metoprolol tartrate (LOPRESSOR) 25 mg tablet Take 1 tablet (25 mg total) by mouth in the morning and 1 tablet (25 mg total) before bedtime. 5 Active levETIRAcetam (KEPPRA) 500 mg tablet Take 1 tablet (500 mg total) by mouth in the morning and 1 tablet (500 mg total) before bedtime. 5 Active sennosides-docusat e sodium (SENOKOT-S) 8.6-50 mg Take 2 tablets by mouth nightly. 5 Active dexAMETHasone (DECADRON) 2 mg tablet Take 2 tablets (4 mg total) by mouth 3 (three) times a day for 1 day, THEN 1.5 tablets (3 mg total) 3 (three) times a day for 3 days, THEN 1.5 tablets (3 mg total) 2 (two) times a day for 3 days, THEN 1 tablet (2 mg total) 2 (two) times a day for 3 days. 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 09/01/2024 Non-traumatic rhabdomyolysis 08/28/2024 Weakness 08/28/2024 Generalized anxiety disorder with panic attacks 05/18/2024 Overview (08/28/2024): Duloxetine, prozac and sertraline in the past 05/08/24: PHQ 9 score=11, MELISSA 7 score= 5 07/07/24: PHQ =4, MELISSA 7=12 Hyperlipidemia, acquired 07/30/2023 LORENZO (obstructive sleep apnea) 07/30/2023 Multiple sclerosis 04/30/2023 Primary hypertension 04/30/2023 Primary insomnia 04/30/2023 Encounters Date Type Department Care Team Description 09/29/2024 Telephone [facility] [address] [place] [phone] Anya Soni RN incision 09/26/2024 Travel 09/23/2024 2:05 PM EDT - 09/23/2024 5:50 PM EDT Surgery [facility] [address] [place] [phone] Juni Espinal MD SYNAPTIVE CRANIOTOMY EXCISION TUMOR 09/23/2024 1:17 PM EDT Anesthesia Event [facility] [address] [place] [phone] Stan Hedrick MD Leopardi, Isabella, SRNA 09/19/2024 Orders Only [facility] [address] [place] [phone] Transcribe, Orders Support User Pain (Primary Dx) 09/19/2024 Travel 09/18/2024 11:59 PM EDT - 09/29/2024 12:15 AM EDT Hospital Encounter [facility] - GEN 9 Acute [address] [place] [address] Lewis Botello, DO Haynes, MD Bhupinder Rondon, MD Javy Martinez, MD Ric Tyler, MD Kylie Ott, MD Tesfaye Johnson, Dean Saavedra MD Altered mental status, unspecified altered mental status type (Primary Dx); BRANDON (acute kidney injury); Brain mass; S/P craniotomy Discharge Disposition: Group Home Facility-Medicare Cert 09/18/2024 8:00 PM EDT Ancillary Procedure [facility] [address] [place] [phone] Pain 09/18/2024 6:35 PM EDT Ancillary Procedure [facility] [address] [place] [address] [phone] Pain 09/16/2024 1:20 PM EDT Office Visit [facility] [address] [place] [address] Margot Barnes P, CONSULTING NETWORKING ENGINEER-POLITICAL SCIENCE INSTRUCTOR Dermatitis associated with moisture (Primary Dx); Pressure injury of left buttock, stage 2 (CMS-HCC) 09/16/2024 Travel 09/01/2024 Travel 08/28/2024 10:22 AM EDT - 09/01/2024 4:45 PM EDT Hospital Encounter [facility] - Acute Care [address] [place] [phone] Marielle Alexandra MD Asif, MD Elissa Power, Giselle Johnson MD Non-traumatic rhabdomyolysis (Primary Dx); Weakness Discharge Disposition: Group Home Facility-Medicare Cert 08/28/2024 Travel from Last 3 Months Immunizations Immunization Administration Dates Next Due Influenza High Dose Preserva tive Free IM 03/07/2022,03/19/2015,04/27/2014 Influenza, Im Flucelvax (Pf) 03/05/2024 Influenza, Im Trivalent Preservative 04/30/2023 Influenza, Injectable, quadr ivalent (PF) 04/08/2020,03/20/2019,06/05/2018,02/27,04/03/2016 Influenza, Intradermal (Pf) 05/02/2023 Pneumococcal Polysaccharide 10/02/2016 Tdap 10/02/2016 Unknown Vaccine Or Immune Globulin 03/05,05/29/2022,05/18/2021,07/28,10/02/2016 Family History Medical History Relation Name Comments Stroke Mother Relation Name Status Comments Mother Social History Tobacco Use Types Packs/Day Years Used Date Smoking Tobacco: Some Days Cigarettes Smokeless Tobacco: Never Tobacco Cessation:Ready to Q uit: Not Asked; Counseling Given: Not Answered Alcohol Use Standard Drinks/Week Comments Never 0 (1 standard drink = 0.6 oz pur e alcohol) [place] Utilities Answer Date Recorded In the past 12 months has th e electric, gas, oil, or water company threatened to shut off services in your home? No 08/28/2024 PRAPARE - Transportation Answer Date Re corded In the past 12 months, has l ack of transportation kept you from medical appointments or from getting medications? No 08/18 In the past 12 months, has l ack of transportation kept you from meetings, work, or from getting things needed for daily living? No 08/28/2024 Housing Instability Answer Date Recorde d Are you worried or concerned that in the next two months you may not have stable housing that you own, rent or stay in as a part of a household? No 08/28/2024 Childcare Answer Date Recorded Childcare Unknown 10/29/2018 Employment Answer Date Recorded Employment Unknown 10/29/2018 Hunger Screening Answer Date Recorded Within the past 12 months we worried whether our food would run out before we got money to buy more. Never True 09/16/2024 Within the past 12 months th e food we bought just didn't last and we didn't have money to get more. Never True 09/16/2024 Comments Unknown Sex and Gender Information Value Date Recorded Sex Assigned at Not on file Legal Sex Female 11:57 AM EST Gender Identity Not on file Sexual Orientation Not on file Last Filed Vital Signs Vital Sign Reading Time Taken Comments Blood Pressure 115/63 09/28/2024 11:34 PM EDT Pulse 83 09/28/2024 11:34 PM EDT Temperature 36.7 C (98.1 F) 09/28/2024 8:38 PM EDT Respiratory Rate 15 09/28/2024 11:3 4 PM EDT Oxygen Saturation 100% 09/28/2024 8:38 PM EDT Inhaled Oxygen Concentration - - Weight 114.8 kg (253 lb 1.4 oz) 09/28/2024 5:00 AM EDT Height 167.6 cm (5' 5.98 ) 09/25/2024 1:00 AM ED T Body Mass Index 40.87 09/25/2024 1:00 AM EDT Plan of Treatment Upcoming Encounters Date Type Department Care Team (Late st Contact Info) Description 11/10/2024 1:10 PM EDT Office Visit [facility] [address] [place] [phone] Juni Espinal MD [address] [place] [phone] 12/14/2024 11:00 AM EDT Office Visit [facility] [address] [place] [phone] Laura Gunn MD [address] [place] [phone] Health Maintenance Due Date Last Done Comments Tobacco Counseling 1968 Depression Screening 1980 Adult BMI Follow Up Plan 1986 Pap Smear 1989 Zoster (Shingles) Vaccine (1 of 2) 2018 COVID-19 Vaccine (2023-2 5 season) 2024 05/29/2022, 05/18/2021, 07/28/2020 Influenza Vaccine 01/18/2025 03/05/2024, , 04/30/2023, Additional history exists Tobacco Screening 09/23/2025 09/23/2024 Adult BMI Screening 09/28/2025 09/28/2024 DTaP,Tdap and Td Vaccines (2 - Td or Tdap) 10/02/2026 10/02/2016 Goals Goal Patient Goal Type Associated Problems Recent Progress Patient-Stated? Author SNF General Yes Amparo Lamas LSW Note: Evaluation of progress towards goal: SNF recommended, pt agreeable to SNF stating she is not able to care for self at home at this time Medical Devices Implanted Type Area Transmission Calibration Engineer Device Identifier Shelf Expiration Date Model / Serial / Lot Patch Dura 3x3in Thk3.5mm Crnmxf Drmtrx-[place] + Npor Rgnrt Rpl [id number] - [id number] Implanted:Qty : 1 on 09/23/2024 by Juni Espinal MD at [facility] Graft Right: Brain JIM CRANIOMAXILLOFACIAL 06/19/2027 [id number] / / [id number] Plate Bn 12mm 2 Hl Lp Bar Tab Unv Neuro Ii Crnmxf Ti Ns 1.5 - [id number] Implanted:Qty : 2 on 09/23/2024 by Juni Espinal MD at [facility] Plate Right: Brain JIM [employer]ILL[employer] [id number] / / Cover Bur Hl Crnfcl 10mmx.5mm Lp Tab Strl Lf Disp - [id number] Implanted:Qty : 1 on 09/23/2024 by Juni Espinal MD at [facility] Plate Right: Brain JIM [employer] [id number] / / Screw Bn 4mm 1.5mm Slf Drl Xpn Crnmxf Strl Must Order In Multiples Of 5ea - [id number] Implanted:Qty : 7 on 09/23/2024 by Juni Espinal MD at [facility] Screw Right: Brain JIM [employer] [id number] / / Procedures Procedure Name Priority Date/Time Associated Diagnosis Comments FL SWALLOW MOTILITY FUNCTION Routine 09/28/2024 2:41 PM EDT CBC WITH AUTO DIFFERENTIAL Routine 09/28/2024 6:43 AM EDT PHOSPHORUS Routine 09/28/2024 6:43 AM EDT MAGNESIUM Routine 09/28/2024 6:43 AM EDT BASIC METABOLIC PANEL Routine 09/28/2024 6:43 AM EDT IONIZED CALCIUM Routine 09/28/2024 6:43 AM EDT CBC WITH AUTO DIFFERENTIAL Routine 09/27/2024 7:48 AM EDT PHOSPHORUS Routine 09/27/2024 7:48 AM EDT MAGNESIUM Routine 09/27/2024 7:48 AM EDT BASIC METABOLIC PANEL Routine 09/27/2024 7:48 AM EDT IONIZED CALCIUM Routine 09/27/2024 7:48 AM EDT XR CHEST 1 VW Routine 09/27/2024 6:11 AM EDT IONIZED MAGNESIUM Routine 09/25/2024 12: 23 PM EDT CBC WITH AUTO DIFFERENTIAL Routine 09/25/2024 4:15 AM EDT PHOSPHORUS Routine 09/25/2024 4:15 AM EDT MAGNESIUM Routine 09/25/2024 4:15 AM EDT BASIC METABOLIC PANEL Routine 09/25/2024 4:15 AM EDT IONIZED CALCIUM Routine 09/25/2024 4:15 AM EDT FL SWALLOW MOTILITY FUNCTION Routine 09/24/2024 1:31 PM EDT COMPREHENSIVE METABOLIC PANEL Routine 09/24/2024 3:31 AM EDT CBC WITH AUTO DIFFERENTIAL Routine 09/24/2024 3:31 AM EDT PHOSPHORUS Routine 09/24/2024 3:31 AM EDT MAGNESIUM Routine 09/24/2024 3:31 AM EDT IONIZED CALCIUM Routine 09/24/2024 3:[address] BRAIN WO CONT Routine 09/23/2024 7:19 PM EDT XR ABD NG TUBE PLACEMENT 1 VIEW STAT 09/23/2024 5:09 PM EDT BEDSIDE GLUCOSE Routine 09/23/2024 4:49 PM EDT SURGICAL PATHOLOGY Routine 09/23/2024 3: 06 PM EDT KY ANES ART LINE Routine 09/23/2024 2:06 PM EDT KY AN ELECTIVE ENDOTRACHEAL AIRWAY Routine 09/23/2024 1:28 PM EDT SYNAPTIVE CRANIOTOMY EXCISION TUMOR 09/23/2024 1:18 PM EDT brain tumor Case Notes SYNAPTIVE-GABBY SONOPET Special Needs SYNAPTIVE-GABBY SONOPET XR CHEST 1 VW Routine 09/23/2024 12:02 PM EDT CBC WITH AUTO DIFFERENTIAL Routine 09/23/2024 7:01 AM EDT PHOSPHORUS Routine 09/23/2024 7:01 AM EDT MAGNESIUM Routine 09/23/2024 7:01 AM EDT BASIC METABOLIC PANEL Routine 09/23/2024 7:01 AM EDT IONIZED CALCIUM Routine 09/23/2024 7:01 AM EDT REPEATED ABORH Routine 09/23/2024 7:00 AM EDT REPEATED ABORH Routine 09/22/2024 9:27 PM EDT TYPE AND SCREEN Routine 09/22/2024 9:27 PM EDT ELECTROLYTE PANEL Routine 09/22/2024 9:2 7 PM EDT ECHO COMPLETE W CONTRAST Routine 09/22/2024 4:34 PM EDT ELECTROLYTE PANEL Routine 09/22/2024 1:0 6 PM EDT ECG 12-LEAD Routine 09/22/2024 10:49 AM EDT VANCOMYCIN, RANDOM Routine 09/22/2024 6: 14 AM EDT CBC WITH AUTO DIFFERENTIAL Routine 09/22/2024 6:14 AM EDT PHOSPHORUS Routine 09/22/2024 6:14 AM EDT MAGNESIUM Routine 09/22/2024 6:14 AM EDT BASIC METABOLIC PANEL Routine 09/22/2024 6:14 AM EDT IONIZED CALCIUM Routine 09/22/2024 6:14 AM EDT ELECTROLYTE PANEL Routine 09/21/2024 8:4 1 PM EDT CLINICAL PATHOLOGY REVIEW Routine 09/21/2024 3:31 PM EDT ELECTROLYTE PANEL Routine 09/21/2024 11: 52 AM EDT VANCOMYCIN, RANDOM Routine 09/21/2024 11 :52 AM EDT IONIZED MAGNESIUM Routine 09/21/2024 11: 52 AM EDT CBC WITH AUTO DIFFERENTIAL Routine 09/21/2024 2:30 AM EDT PHOSPHORUS Routine 09/21/2024 2:30 AM EDT MAGNESIUM Routine 09/21/2024 2:30 AM EDT BASIC METABOLIC PANEL Routine 09/21/2024 2:30 AM EDT IONIZED CALCIUM Routine 09/21/2024 2:30 AM EDT ELECTROLYTE PANEL Routine 09/20/2024 7:5 6 PM EDT VANCOMYCIN, RANDOM Routine 09/20/2024 7: 56 PM EDT XR ABD NG TUBE PLACEMENT 1 VIEW STAT 09/20/2024 7:[address] ABDOMEN AND PELVIS WO CONT Routine 09/20/2024 2:22 PM EDT ELECTROLYTE PANEL Routine 09/20/2024 11: 14 AM EDT IONIZED MAGNESIUM Routine 09/20/2024 11: 14 AM EDT BLOOD CULTURE STAT 09/20/2024 7:33 AM EDT BLOOD CULTURE STAT 09/20/2024 7:29 AM EDT CBC WITH AUTO DIFFERENTIAL Routine 09/20/2024 2:59 AM EDT PHOSPHORUS Routine 09/20/2024 2:59 AM EDT MAGNESIUM Routine 09/20/2024 2:59 AM EDT BASIC METABOLIC PANEL Routine 09/20/2024 2:59 AM EDT IONIZED CALCIUM Routine 09/20/2024 2:59 AM EDT MR BRAIN SYNAPTIVE Routine 09/20/2024 1: 06 AM EDT ELECTROLYTE PANEL Routine 09/19/2024 7:5 8 PM EDT ELECTROLYTE PANEL Routine 09/19/2024 12: 23 PM EDT US RETROPERITONEAL COMPLETE STAT 09/19/2024 6:12 AM EDT CBC WITH AUTO DIFFERENTIAL Routine 09/19/2024 4:46 AM EDT FOLATE Add-On 09/19/2024 4:12 AM EDT VITAMIN B12 Add-On 09/19/2024 4:12 AM EDT FERRITIN Add-On 09/19/2024 4:12 AM EDT IRON AND TIBC Add-On 09/19/2024 4:12 AM EDT PROCALCITONIN Add-On 09/19/2024 4:12 AM EDT MYOGLOBIN, SERUM Add-On 09/19/2024 4:12 AM EDT CK TOTAL Add-On 09/19/2024 4:12 AM EDT THYROID PROFILE INCLUDES TSH FT4 Add-On 09/19/2024 4:12 AM EDT PHOSPHORUS Add-On 09/19/2024 4:12 AM EDT MAGNESIUM Add-On 09/19/2024 4:12 AM EDT BASIC METABOLIC PANEL Add-On 09/19/2024 4:12 AM EDT ELECTROLYTE PANEL Routine 09/19/2024 4:1 2 AM EDT GLOMERULAR BASEMENT MEMBRANE IGG AB STAT 09/19/2024 4:12 AM EDT PROTEINASE 3 AB PR3 STAT 09/19/2024 4 :12 AM EDT MYELOPEROXIDASE AB STAT 09/19/2024 4: 12 AM EDT COMPLEMENT PROFILE (C3 AND C4) STAT 09/19/2024 4:12 AM EDT COLE SCREEN W/ REFLEX STAT 09/19/2024 4:12 AM EDT PROTEIN ELECTROPHORESIS, SERUM Routine 09/19/2024 4:12 AM EDT BEDSIDE GLUCOSE Routine 09/19/2024 4:07 AM EDT BLOOD GAS, ARTERIAL Routine 09/19/2024 3 :47 AM EDT POCT NURSING URINE MACROSCOPIC UA Routine 09/19/2024 1:37 AM EDT PROTEIN CREAT RATIO Add-On 09/19/2024 1 :23 AM EDT URINE CREATININE,RANDOM Add-On 09/19/2024 1:23 AM EDT SODIUM, URINE, RANDOM Add-On 09/19/2024 1:23 AM EDT URINALYSIS Add-On 09/19/2024 1:23 AM EDT TROP I, HIGH SENSITIVITY 1 HOUR STAT 09/19/2024 1:23 AM EDT ER EXTRA URINE STAT 09/19/2024 1:23 AM EDT BLOOD CULTURE IDENTIFICATION PANEL Routine 09/19/2024 1:23 AM EDT BLOOD CULTURE STAT 09/19/2024 1:23 AM EDT ECG 12-LEAD STAT 09/19/2024 12:35 AM EDT HEMOGLOBIN A1C Add-On 09/19/2024 12:26 AM EDT CK TOTAL Add-On 09/19/2024 12:26 AM EDT LACTATE W/ REFLEX STAT 09/19/2024 12: 26 AM EDT TROPONIN I, HIGH SENSITIVITY 0 HOUR STAT 09/19/2024 12:26 AM EDT TROPONIN I, HIGH SENSITIVITY 0 HOUR STAT 09/19/2024 12:26 AM EDT AMMONIA STAT 09/19/2024 12:26 AM EDT APTT STAT 09/19/2024 12:26 AM EDT PROTIME & INR STAT 09/19/2024 12:26 AM EDT COMPREHENSIVE METABOLIC PANEL STAT 09/19/2024 12:26 AM EDT CBC WITH AUTO DIFFERENTIAL STAT 09/19/2024 12:26 AM EDT BLOOD CULTURE STAT 09/19/2024 12:26 AM EDT XR CHEST 1 VW Routine 09/18/2024 8:[address] BRAIN WO CONT Routine 09/18/2024 6:35 PM EDT Pain CK TOTAL Routine 09/01/2024 4:26 AM EDT MYOGLOBIN, SERUM Routine 09/01/2024 4:26 AM EDT CBC WITH AUTO DIFFERENTIAL Routine 09/01/2024 4:26 AM EDT MAGNESIUM Routine 09/01/2024 4:26 AM EDT COMPREHENSIVE METABOLIC PANEL Routine 09/01/2024 4:26 AM EDT CK TOTAL Routine 08/31/2024 5:20 PM EDT MYOGLOBIN, SERUM Routine 08/31/2024 5:20 PM EDT POTASSIUM Routine 08/31/2024 11:05 AM EDT CK TOTAL Routine 08/31/2024 5:13 AM EDT MYOGLOBIN, SERUM Routine 08/31/2024 5:13 AM EDT CBC WITH AUTO DIFFERENTIAL Routine 08/31/2024 5:13 AM EDT MAGNESIUM Routine 08/31/2024 5:13 AM EDT COMPREHENSIVE METABOLIC PANEL Routine 08/31/2024 5:13 AM EDT CK TOTAL Routine 08/30/2024 8:51 PM EDT MYOGLOBIN, SERUM Routine 08/30/2024 8:51 PM EDT CK TOTAL Routine 08/30/2024 12:58 PM EDT MYOGLOBIN, SERUM Routine 08/30/2024 12:5 8 PM EDT CK TOTAL Routine 08/30/2024 5:14 AM EDT MYOGLOBIN, SERUM Routine 08/30/2024 5:14 AM EDT CBC WITH AUTO DIFFERENTIAL Routine 08/30/2024 5:14 AM EDT MAGNESIUM Routine 08/30/2024 5:14 AM EDT COMPREHENSIVE METABOLIC PANEL Routine 08/30/2024 5:14 AM EDT CK TOTAL Routine 08/29/2024 10:08 PM EDT MYOGLOBIN, SERUM Routine 08/29/2024 10:0 8 PM EDT MAGNESIUM Routine 08/29/2024 4:23 PM EDT LIPID PROFILE Routine 08/29/2024 12:52 PM EDT MYOGLOBIN, SERUM Routine 08/29/2024 12:5 2 PM EDT CK TOTAL Routine 08/29/2024 12:52 PM EDT POCT IONIZED CALCIUM STAT 08/29/2024 7:58 AM EDT CK TOTAL Routine 08/29/2024 4:47 AM EDT MYOGLOBIN, SERUM Routine 08/29/2024 4:47 AM EDT CBC WITH AUTO DIFFERENTIAL Routine 08/29/2024 4:47 AM EDT MAGNESIUM Routine 08/29/2024 4:47 AM EDT COMPREHENSIVE METABOLIC PANEL Routine 08/29/2024 4:47 AM EDT ECG 12-LEAD Routine 08/29/2024 12:47 AM EDT POTASSIUM STAT 08/28/2024 11:50 PM EDT MAGNESIUM STAT 08/28/2024 11:50 PM EDT TROP I, HIGH SENSITIVITY 3 HOUR Routine 08/28/2024 11:50 PM EDT MYOGLOBIN, SERUM Routine 08/28/2024 9:07 PM EDT CK TOTAL Routine 08/28/2024 9:[address] CTA CHEST STAT 08/28/2024 12:34 PM EDT TROP I, HIGH SENSITIVITY 1 HOUR STAT 08/28/2024 11:47 AM EDT ECG 12-LEAD STAT 08/28/2024 11:41 AM EDT XR CHEST 1 VW STAT 08/28/2024 10:54 AM EDT CK TOTAL STAT 08/28/2024 10:34 AM EDT APTT STAT 08/28/2024 10:34 AM EDT PROTIME & INR STAT 08/28/2024 10:34 AM EDT D-DIMER STAT 08/28/2024 10:34 AM EDT MYOGLOBIN, SERUM STAT 08/28/2024 10:3 4 AM EDT TROPONIN I, HIGH SENSITIVITY STAT 08/28/2024 10:34 AM EDT MAGNESIUM STAT 08/28/2024 10:34 AM EDT COMPREHENSIVE METABOLIC PANEL STAT 08/28/2024 10:34 AM EDT CBC WITH AUTO DIFFERENTIAL STAT 08/28/2024 10:34 AM EDT SARS/FLU A+B/RSV BY NAAT/MOLECULAR (M4RT COLLECTION TUBE) STAT 08/28/2024 10:32 AM EDT from Last 3 Months Results * Fluoroscopy swallow motility function (09/28/2024 2:41 PM EDT) Only the most recent of2 resultswithin the time period is included. Anatomical Region Laterality Modality Chest, Abdomen, Body Radio Fluor oscopy 09/28/2024 3:00 PM EDT Narrative 09/28/2024 3:08 PM EDT FL SWALLOW MOTILITY FUNCTION HISTORY: Oropharyngeal dysphagia [...] Andrey Shannon MD on 09/28/2024 3:00 PM Jayla Moreno MD have personally reviewed the image(s) and agree with and/or edited the report Finalized by Jayla Arroyo MD on 09/28/2024 3:08 PM Procedure Note Jyala Arroyo MD - 09/28/2024 FL SWALLOW MOTILITY FUNCTION HISTORY: Oropharyngeal dysphagia COMPARISON: Fluoroscopy swallow study 09/24/2024 TECHNIQUE: Video fluoroscopic swallow study was performed in conjunctionwith speech pathologist. Barium contrast materials of varyingconsistencies administered. FINDINGS: Fluoroscopy time: 2.0 Reference air kerma: 4.1 mGy Runs: 12 Thin: Penetration with cup and straw. No aspiration. Mildly thick: Not tested Moderately thick: Not tested Applesauce: No penetration or aspiration. Fruit: No penetration or aspiration. Cracker: No penetration or aspiration. IMPRESSION: 1. Abnormal swallow study as detailed above 2. Please correlate with dedicated speech pathology report for additionaldetails and recommendations. Approved by Andrey Shannon MD on 09/28/2024 3:00 PM Jayla Moreno MD have personally reviewed the image(s) and agree withand/or edited the report Finalized by Jayla Arroyo MD on 09/28/2024 3:08 PM us Jesi E Phlip[employer] CONSULTING NETWORKING ENGINEER-POLITICAL SCIENCE INSTRUCTOR IMG FLUOROSCOPY ORDERAB LES Final Result * (ABNORMAL) CBC auto differential (09/28/2024 6:43 AM EDT) Only the most recent of15 resultswithin the time period is included. WBC 15.5(H) 4 - 11 x10E9/L 09/28/2024 8:17 AM EDT [facility] RBC Count 4.27 3.8 - 5.2 X10E12/L 09/28/2024 8:17 AM EDT [facility] Hemoglobin 11.5(L) 11.7 - 15.5 g/dL 09/28/2024 8:17 AM EDT [facility] Hematocrit 35.5 35 - 47 % 09/28/2024 8:17 AM EDT [facility] MCV 83 80 - 100 fL 09/28/2024 8:17 AM EDT [facility] MCH 27.0 27 - 34 pg 09/28/2024 8:17 AM EDT [facility] MCHC 32.5 32 - 36 g/dL 09/28/2024 8:17 AM EDT [facility] RDW 16.4(H) 11.5 - 15 % 09/28/2024 8:17 AM EDT [facility] Platelet Count 115(L) 150 - 450 X10E9/L 09/28/2024 8:17 AM EDT [facility] MPV 10.7 7 - 12 fL 09/28/2024 8:17 AM EDT [facility] Neutrophils Relative 80.2 % 09/28/2024 8:17 AM EDT [facility] Comment:This is an appended report. These results have been appended to a previously preliminary verified report. Lymphocytes Relative 8.3 % 09/28/2024 8:17 AM EDT [facility] Comment:This is an appended report. These results have been appended to a previously preliminary verified report. Monocytes Relative 11.3 % 09/28/2024 8:17 AM EDT [facility] Comment:This is an appended report. These results have been appended to a previously preliminary verified report. Eosinophils Relative 0.1 % 09/28/2024 8:17 AM [facility] Comment:This is an appended report. These results have been appended to a previously preliminary verified report. Basophils Relative 0.1 % 09/28/2024 8:17 AM [facility] Comment:This is an appended report. These results have been appended to a previously preliminary verified report. Neutrophils Absolute (A) 12.4(H) 1.5 - 6.6 10*3/uL 09/28/2024 8:17 AM [facility] Comment:This is an appended report. These results have been appended to a previously preliminary verified report. Lymphocytes Absolute 1.3 1.0 - 3.5 10*3/uL 09/28/2024 8:17 AM [facility] Comment:This is an appended report. These results have been appended to a previously preliminary verified report. Monocytes Absolute 1.8(H) 0.0 - 0.9 10*3/uL 09/28/2024 8:17 AM [facility] Comment:This is an appended report. These results have been appended to a previously preliminary verified report. Eosinophils Absolute 0.0 0.0 - 0.4 10*3/uL 09/28/2024 8:17 AM [facility] Comment:This is an appended report. These results have been appended to a previously preliminary verified report. Basophils Absolute 0.0 0.0 - 0.2 10*3/uL 09/28/2024 8:17 AM [facility] Comment:This is an appended report. These results have been appended to a previously preliminary verified report. Differential Type AUTOMATED DIFFERENTIAL 09/28/2024 8:17 AM [facility] Comment:This is an appended report. These results have been appended to a previously preliminary verified report. Blood 09/28/2024 6:4 3 AM EDT 09/28/2024 6:57 AM EDT us Sandie IBANEZ LAB BLOOD ORDERABLES Final Re sult Performing Organization Address City/[facility]/ZIP Co de Phone Number [facility] [address] [place] [address], * Phosphorus (09/28/2024 6:43 AM EDT) Only the most recent of9 resultswithin the time period is included. PHOSPHORUS 2.6 2.4 - 4.9 mg/dL 09/28/2024 7:30 AM EDT [facility] Blood 09/28/2024 6:43 AM EDT 09/28/2024 6:57 AM EDT us Sandie IBANEZ LAB BLOOD ORDERABLES Final Re sult Performing Organization Address City/[facility] Co de Phone Number [facility] [address] [place] [address], * Magnesium (09/28/2024 6:43 AM EDT) Only the most recent of16 resultswithin the time period is included. MAGNESIUM 1.8 1.8 - 2.6 mg/dL 09/28/2024 7:30 AM EDT [facility] Blood 09/28/2024 6:43 AM EDT 09/28/2024 6:57 AM EDT us Sandie IBANEZ LAB BLOOD ORDERABLES Final Re sult [facility] [address] [place] [address], * (ABNORMAL) Ionized calcium (09/28/2024 6:43 AM EDT) Only the most recent of8 resultswithin the time period is included. IONIZED CALCIUM - ICAN 4.3(L) 4.5 - 5.3 mg/dL 09/28/2024 8:13 AM EDT [facility] Blood 09/28/2024 6:43 AM EDT 09/28/2024 7:00 AM EDT us Steffanie Pedraza Blake CONSULTING NETWORKING ENGINEER-POLITICAL SCIENCE INSTRUCTOR LAB BLOOD ORDERABLES Fin al Result [facility] [address] [place] [address], [place] [phone] * (ABNORMAL) Basic Metabolic Panel (09/28/2024 6:43 AM EDT) Only the most recent of8 resultswithin the time period is included. SODIUM 140 134 - 146 mmol/L 09/28/2024 7:30 AM EDT [facility] POTASSIUM 4.4 3.5 - 5.0 mmol/L 09/28/2024 7:30 AM EDT [facility] CHLORIDE 106 98 - 109 mmol/L 09/28/2024 7:30 AM EDT [facility] CARBON DIOXIDE 23 22 - 32 mmol/L 09/28/2024 7:30 AM EDT [facility] ANION GAP 11 5 - 15 mmol/L 09/28/2024 7:30 AM EDT [facility] BLOOD UREA NITROGEN 26(H) 5 - 23 mg/dL 09/28/2024 7:30 AM EDT [facility] CREATININE 0.74 0.40 - 1.00 mg/dL 09/28/2024 7:30 AM EDT [facility] Comment:METHOD TRACEABLE TO IDMS STANDARD GLUCOSE 94 65 - 99 mg/dL 09/28/2024 7:30 AM EDT [facility] CALCIUM 8.8 8.5 - 10.5 mg/dL 09/28/2024 7:30 AM EDT [facility] EGFR Non-Race Dependent >90 >=60 ml/min/1.7 3sq.m 09/28/2024 7:30 AM EDT [facility] Comment: Reported eGFR is based on the CKD-EPI 2020 equation that does not use a race coefficient. Blood 09/28/2024 6:43 AM EDT 09/28/2024 6:57 AM EDT Sandie IBANEZ LAB BLOOD ORDERABLES Final Re sult [facility] [address] [place] [address], [place] [phone] * X-ray chest 1 view (09/27/2024 6:11 AM EDT) Only the most recent of4 resultswithin the time period is included. Anatomical Region Laterality Modality Body, Chest N/A Computed Radiogr aphy 09/27/2024 6:34 AM EDT Narrative 09/27/2024 6:34 AM EDT Single view chest History:evaluate for PNA Difficulty breathing, shortness of breath Comparison: 09/23/2024 Findings: Single portable view of the chest. Stable cardiomediastinal silhouette. No focal opacity, effusion or pneumothorax. Impression: No significant interval change or definitive acute process. Finalized by Harish Sterling MD on 09/27/2024 6:34 AM Procedure Note Harish Sterling MD - 09/27/2024 Single view chest History:evaluate for PNA Difficulty breathing, shortness of breath Comparison: 09/23/2024 Findings: Single portable view of the chest. Stable cardiomediastinal silhouette. Nofocal opacity, effusion or pneumothorax. Impression: No significant interval change or definitive acute process. Finalized by Harish Sterling MD on 09/27/2024 6:34 AM Anjelica Venegas CONSULTING NETWORKING ENGINEER-POLITICAL SCIENCE INSTRUCTOR IMG DIAGNOSTIC IMAG ING ORDERABLES Final Result * Ionized magnesium (09/25/2024 12:23 PM EDT) Only the most recent of3 resultswithin the time period is included. IONIZED MAGNESIUM 0.56 0.45 - 0.74 mmol/L 09/25/2024 12:56 PM EDT [facility] Blood Venous blood / Unknown 09/25/2024 12:23 PM EDT 09/25/2024 12:38 PM EDT us Juni Espinal MD LAB BLOOD ORDERABLES Final Re sult [facility] [address] [place] [address], [place] [phone] * (ABNORMAL) Comprehensive metabolic panel (09/24/2024 3:31 AM EDT) Only the most recent of7 resultswithin the time period is included. SODIUM 141 134 - 146 mmol/L 09/24/2024 4:24 AM EDT [facility] POTASSIUM 4.3 3.5 - 5.0 mmol/L 09/24/2024 4:24 AM EDT [facility] CHLORIDE 108 98 - 109 mmol/L 09/24/2024 4:24 AM EDT [facility] CARBON DIOXIDE 23 22 - 32 mmol/L 09/24/2024 4:24 AM EDT [facility] ANION GAP 10 5 - 15 mmol/L 09/24/2024 4:24 AM EDT [facility] BLOOD UREA NITROGEN 27(H) 5 - 23 mg/dL 09/24/2024 4:24 AM EDT [facility] CREATININE 1.06(H) 0.40 - 1.00 mg/dL 09/24/2024 4:24 AM EDT [facility] Comment:METHOD TRACEABLE TO IDMS STANDARD GLUCOSE 120(H) 65 - 99 mg/dL 09/24/2024 4:24 AM EDT [facility] CALCIUM 8.7 8.5 - 10.5 mg/dL 09/24/2024 4:24 AM EDT [facility] TOTAL PROTEIN 6.3 6.0 - 8.0 g/dL 09/24/2024 4:24 AM EDT [facility] ALBUMIN 3.3 3.2 - 5.3 g/dL 09/24/2024 4:24 AM EDT [facility] ALKALINE PHOSPHATASE 61 39 - 130 U/L 09/24/2024 4:24 AM EDT [facility] AST 19 <=41 U/L 09/24/2024 4:24 AM EDT [facility] ALT 33(H) <=31 U/L 09/24/2024 4:24 AM EDT [facility] BILIRUBIN,TOTAL 0.4 0.3 - 1.2 mg/dL 09/24/2024 4:24 AM EDT [facility] EGFR Non-Race Dependent 62 >=60 ml/min/1.7 3sq.m 09/24/2024 4:24 AM EDT [facility] Comment: Reported eGFR is based on the CKD-EPI 2020 equation that does not use a race coefficient. Blood Venous blood / Unknown Line / Unknown 09/24/2024 3:31 AM EDT 09/24/2024 3:47 AM EDT Juni Espinal MD LAB BLOOD ORDERABLES Final Re sult [facility] [address] [place] [address], [place] [phone] * CT brain without contrast (09/23/2024 7:19 PM EDT) Only the most recent of2 resultswithin the time period is included. Anatomical Region Laterality Modality Neuro, Head, Head and Neck, Neuro Covera N/A Computed Tomography 09/23/2024 7:36 PM EDT Narrative 09/23/2024 7:38 PM EDT STUDY: CT BRAIN WO CONT INDICATION: s/p [...] by Hebert Farrar on 09/23/2024 7:38 PM Procedure Note Hebert Farrar MD - 09/23/2024 STUDY: CT BRAIN WO CONT INDICATION: s/p crani for tumor removal. TECHNIQUE: * CT head was performed without intravenous contrast using the standardprotocol. Automated exposure control was utilized. * All CT scans at this facility use dose modulation, iterativereconstruction, and/or weight based dosing when appropriate to reduceradiation dose to as low as reasonably achievable. FINDINGS: Limited exam due to postoperative and axial only imaging. Postoperative changes of right pterional craniotomy. Tumor debulking isnoted. The underlying mass itself is difficult to characterize on thisnoncontrast CT. Mild to moderate volume of intracranial pneumocephalus. Slight interval decrease in leftward midline shift at the level of theabdomen was, now measuring 1.2 cm, previously measuring 1.5 cm. There is extensive vasogenic edema throughout the right hemisphere whichis again noted. Bilateral globes, orbits appear unremarkable. Postoperative changes inthe superficial tissues along the right temporal tissues. Mild mucosalthickening in the posterior ethmoid air cells. Mastoid air cells, middleear cavities appear clear. Atherosclerosis of the carotid siphons. IMPRESSION: * Extensive postoperative changes of right pterional craniotomy andunderlying mass resection. Residual tumor is difficult to assess on thisnoncontrast, portable imaging only technique. * Slight interval decrease in leftward midline shift. * Intracranial pneumocephalus, likely within expected limits for recentsurgery. Finalized by Hebert Farrar on 09/23/2024 7:38 PM Ibeth IBANEZ-Leah IMG CT ORDERABLES Final Result * X-ray abdomen NG Tube placement 1 view (09/23/2024 5:09 PM EDT) Only the most recent of2 resultswithin the time period is included. Anatomical Region Laterality Modality Body, Abdomen N/A Computed Radiogr aphy 09/23/2024 5:22 PM EDT Narrative 09/23/2024 5:22 PM EDT EXAM: XR ABD NG TUBE PLACEMENT 1 VIEW CLINICAL INFORMATION: new NG placed. COMPARISON: 09/20/2024 FINDINGS: The gastric tube tip is in the stomach. IMPRESSION: Gastric tube tip in stomach. Finalized by Sebastian Grayson MD on 09/23/2024 5:22 PM Procedure Note Sebastian Grayson MD - 09/23/2024 EXAM: XR ABD NG TUBE PLACEMENT 1 VIEW CLINICAL INFORMATION: new NG placed. COMPARISON: 09/20/2024 FINDINGS: The gastric tube tip is in the stomach. IMPRESSION: Gastric tube tip in stomach. Finalized by Sebastian Grayson MD on 09/23/2024 5:22 PM Juni Espinal MD IMG DIAGNOSTIC IMAGING ORDERA BLES Final Result * (ABNORMAL) Bedside Glucose *Place/Obtain serum glucose if >500 per glucometer. (09/23/2024 4:49 PM EDT) Only the most recent of2 resultswithin the time period is included. Bedside Glucose (POC) 153(H) 65 - 99 mg/dL 09/23/2024 4:51 PM EDT [facility] arterial/capilla ry 09/23/2024 4:49 PM EDT 09/23/2024 4:51 PM EDT us Xena Larios MD POINT OF CARE TEST ORDERABLE S Final Result [facility] [address] [place] [address], [place] * Surgical Pathology (09/23/2024 3:06 PM EDT) Case Report Surgical Pathology Report Case: [id number] Authorizing Provider: Juni Espinal MD Collected: 09/23/2024 1506 Ordering Location: [facility] Received: 09/23/2024 1629 - Surgery Pathologist: Alyssa Renteria MD Specimen: Brain, BRAIN TUMOR 10/15/2024 10:59 AM EDT [facility] Final Diagnosis Brain, tumor, resection ([id number]; 09/23/2024): Glioblastoma, 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 See comment. COMMENT: Histologic sections demonstrate a highly cellular infiltrating astrocytoma. A majority of the tumor shows fibrillary morphology, with a minor component showing giant cell morphology. The tumor harbors brisk mitotic activity, microvascular proliferation, and necrosis, supporting a histologic diagnosis of glioblastoma. By immunohistochemistry, the tumor is IDH-wildtype. ANCILLARY STUDIES: Immunohistochemical stains were performed at [facility] on block E1 (IDH1-R132H, ATRX, p53, GFAP, synaptophysin) and reviewed in conjunction with stains performed at the referring institution (GFAP, Ki-67, p53). GFAP: Positive in the majority of tumor cells Synaptophysin: No definite expression in tumor cells; a primitive neuronal component is not identified IDH1-R132H and ATRX: IDH1-R132H is negative, essentially excluding the most common IDH mutation. The expression of ATRX is retained. Although other less common IDH1/IDH2 mutations are not entirely excluded, the likelihood that these may be present in patients older than 54 years has been found to be less than 1% (Neuro-Oncology. 2014 Mar;16(11):4918?83). Therefore, tissue is not being submitted for IDH1/IDH2 sequencing at this time. p53: Weak expression in a small subset of tumor cells Ki-67: Very high labeling index (greater than 50% within the most proliferative areas). Methylguanine-DNA methyltransferase (MGMT) promoter methylation study will be performed on paraffin-embedded tissue (block E1) and reported separately by the Division of Laboratory Genetics. NOTE: The above diagnosis and comment is that of Anahi Franklin M.D., Ph.D., [facility], [place], [place]. Please see the complete pathology consult (scanned on 10/09/2024). 10/15/2024 10:59 AM [facility] at 0851 EDT Addendum Results of MGMT Promoter Methylation, Tumor dated 10/14/2024 are received from [facility], [address] [place] [address] and are as follows: Result Summary: MGMT PROMOTER METHYLATION ABSENT Result: Provided diagnosis: brain glioblastoma, IDH-wildtype (STITCHER UTILITY WHO grade 4) Tumor tissue: Negative for MGMT promoter methylation Interpretation: Current data suggest that the absence of MGMT promoter methylation predicts lack of response to alkylating chemotherapy (i.e. temozolomide) and is an unfavorable prognostic factor for patients with glioblastoma. Additional studies are needed to assess the clinical significance of the absence of MGMT promoter methylation in other tumor types. See the MGMT report (scanned on 10/15/2024). 10/15/2024 10:59 AM [facility] Addendum electronically signed by ALYSSA RENTERIA MD on 10/15/2024 at 1059 EDT Gross Description Received in formalin labeled LONZ, brain tumor is a 8.5 x 4.5 x 1.6 cm aggregate of pink-pinedo, rubbery and friable soft tissue fragments. The specimen is filtered and entirely submitted in cassettes A-L. (12, ns, [id number], m8.1) MW 10/15/2024 10:59 AM [facility] Preliminary Diagnosis Brain tumor, resection: High grade (grade 4) glial neoplasm with multiple foci of large, bizarre multinucleated cells, accompanied by areas of acute necrosis with neutrophils. See comment. Comment: Section show a high-grade diffusely infiltrating glial neoplasm demonstrating moderate to severe pleomorphism and brisk mitotic activity. Pseudopalisading necrosis, geographic necrosis and microvascular proliferation are identified, in addition to areas of acute inflammation with necrosis. Immunohistochemical analysis with adequate controls reveals that the malignant cells (including the bizarre multinucleated cells) are diffusely positive for GFAP, and show a high Ki-67 cell proliferation index of ~75-80%. The tumor is negative for CAM5.2, AE1/AE3, SOX10 and p53. Further evaluation, including molecular studies, is to be performed at [facility] for a final integrated diagnosis to follow. 10/15/2024 10:59 AM EDT [facility] Preliminary result electronically signed by ALYSSA RENTERIA MD on 10/01/2024 at 1059 EDT Synoptic Checklist Brain/Spinal Cord/Nerve: Biopsy/Resection BRAIN/SPINAL CORD: BIOPSY/RESECTION - All Specimens SPECIMEN Procedure (Note B): Resection Laterality (Note A): Right Primary Tumor Site (Note A): Brain Brain Primary Tumor Sites: Cerebral lobes Specify Precise Location: Temporal Additional Sites Involved by Tumor (Note A): Not specified TUMOR Histologic Type (WHO classification of tumors of the central nervous system) (Note C): Astrocytic Tumors Histologic Type and Grade (applicable World Health Organization [WHO] classification and grade) (Note F, Note G): Glioblastoma (WHO grade IV) Histologic Grade (WHO histologic grade) (Note D): WHO Grade IV 10/15/2024 10:59 AM EDT [facility] Embedded Images 10/15/2024 10:59 AM EDT [facility] Tissue Brain structure / Unknown 09/23/2024 3:06 PM EDT 09/23/2024 4:29 PM EDT Comment:Pre-op diagnosis: brain tumor us Juni Espinal MD PATHOLOGY/CYTOLOGY ORDERABLES Edited Result - Final [facility] [address] [place] [address], [place] [phone] [facility] [address] [place] [address], [place] * [place] ANES ART LINE (09/23/2024 2:06 PM EDT) Narrative Samia Seth SRNA - 09/23/2024 2:06 PM EDT ALFREDO Carr 09/23/2024 2:07 PM Art Line Performed by: ALFREDO Carr Authorized by: Stan Hedrick MD Patient Location: OR Start Time: 09/23/2024 1:29 PM End Time: 09/23/2024 1:31 PM Service Provider: Stan Hedrick MD GEOTHERMAL POWERPLANT MECHANIC HELPER ( if not the service provider): BABAR Li Student (if Applicable): ALFREDO Carr Placed By: ALFREDO Carr Complete checklist: Patient Identified, IV Checked, Risks and Benefits Discussed, Surgical Consent, Monitors and Equipment Checked, Pre-op Evaluation and Timeout Performed Fire Risk Assessment Score: 0 Site Prep: Chlorhexadine and Isopropyl Alcohol and Maximum Sterile Barriers Used Hand Hygiene Performed Prior to Insertion: Yes Site Prep Agent has Completely Dried Before Insertion: Yes Patient Prep Prior to AL Insertion: General Anesthesia Size: 20 G Total Catheter Length (inches): 1 3/4 Location: Radial Orientation: Left Securement Method: Taped and Transparent Dressing Placement Technique: Anatomical Landmarks and Guidewire Insertion Attempts: 1 Patient Tolerance: Tolerated Well no arterial injury Stan Hedrick MD [place] ANESTHESIA Final Result * [place] AN ELECTIVE ENDOTRACHEAL AIRWAY (09/23/2024 1:28 PM EDT) Samia Britt SRNA - 09/23/2024 1:28 PM EDT ALFREDO Carr 09/23/2024 2:06 PM Airway Patient location during procedure: OR Urgency: Elective Date/Time: 09/23/2024 1:28 PM Airway not difficult IV In Situ: Peripheral General Information and Staff Service Provider: Stan Hedrick MD GEOTHERMAL POWERPLANT MECHANIC HELPER: BABAR Li Student: ALFREDO Carr Placed by: ALFREDO Carr Patient Identified, IV Checked, Risks and Benefits Discussed, Surgical Consent, Monitors and Equipment Checked, Pre-op Evaluation and Timeout Performed Fire Risk Assessment Score: 0 Consent for Emergent Airway (if performed for an anesthetic, see related documentation for consents) Risks and benefits: risks, benefits and alternatives were discussed Indications and Patient Condition Sedation level: Deep Preoxygenated: yesPatient position: Supine and Sniffing MILS maintained throughout Mask difficulty assessment: Vent By Mask Indications for airway management: Anesthesia Complications: No Complicating Factors: No Final Airway Details Final airway type: ETT Endotracheal airway: Cuffed, ETT - Single Lumen and Pre-Curved Techniques used for successful ETT Placement: Video Laryngoscopy and With Stylet Cormack-Lehane Classification: Grade I Endotracheal tube insertion site: Oral Post Intubation Trauma? No Visibility: Cords Clear Blade: Other (young blade 3) Placement verified by: chest auscultation, capnography and symmetrical chest wall movement ETT size: 7.0 mm Measured from: Lips Secured at (cm): 21 Number of other approaches attempted: 0 Number of attempts at approach: 1 Stan Hedrick MD ANESTHESIA ORDERABLES Final Result * ABO Rh Repeat (09/23/2024 7:00 AM EDT) Only the most recent of2 resultswithin the time period is included. ABO O 09/23/2024 8:17 AM EDT [facility] RH Positive 09/23/2024 8:17 AM EDT [facility] Blood Venous blood / Unknown 09/23/2024 7:00 AM EDT 09/23/2024 7:01 AM EDT Xena Larios MD BLOOD BANK TEST ORDERABLES F inal Result [facility] [address] [place] [address], [facility] [address] [place] [address], * Type and screen(includes indirect sinan) (09/22/2024 9:27 PM EDT) ABO O 09/22/2024 11:08 PM EDT [facility] RH Positive 09/22/2024 11:08 PM EDT [facility] Antibody Screen Negative 09/22/2024 11:08 PM EDT [facility] Blood Venous blood / Unknown Venipuncture / Unknown 09/22/2024 9:27 PM EDT 09/22/2024 9:27 PM EDT Laura Gore CONSULTING NETWORKING ENGINEER-POLITICAL SCIENCE INSTRUCTOR BLOOD BANK TEST ORDERAB LES Edited Result - Final Performing Organization Address City/[facility]/ZIP Co de Phone Number [facility] [address] [place] [address], [facility] [address] [place] [address], * Electrolyte panel (09/22/2024 9:27 PM EDT) Only the most recent of9 resultswithin the time period is included. Pathologist [facility] SODIUM 142 134 - 146 mmol/L 09/22/2024 11:03 PM EDT [facility] POTASSIUM 4.5 3.5 - 5.0 mmol/L 09/22/2024 11:03 PM EDT [facility] CHLORIDE 109 98 - 109 mmol/L 09/22/2024 11:03 PM EDT [facility] CARBON DIOXIDE 22 22 - 32 mmol/L 09/22/2024 11:03 PM EDT [facility] ANION GAP 11 5 - 15 mmol/L 09/22/2024 11:03 PM EDT [facility] Blood Venous blood / Unknown Venipuncture / Unknown 09/22/2024 9:27 PM EDT 09/22/2024 9:27 PM EDT Ta Everett MD LAB BLOOD ORDERABLES Final Resul t [facility] [address] [place] [address], * Echo complete W/ contrast (09/22/2024 4:34 PM EDT) LVOT stroke volume 95.94 ml XCELERA FS 46 28 - 44 % XCELERA LVIDd 3.90 7.16 - 9.95 cm XCELERA LVIDs 2.10 4.15 - 6.28 cm XCELERA IVS 1.00 0.6 - 1.1 cm XCELERA PW 1.10 0.6 - 1.1 cm XCELERA LVOT diameter 2.10 cm XCELERA TDI 3.81 cm/s XCELERA MV TDI E' (medial) 3.92 cm/s XCELERA LA Volume Index 28.1 mL/m2 XCELERA E/A ratio 0.50 XCELERA E wave deceleration time 369.00 msec XCELERA MV Peak E Dayday 86.80 cm/s XCELERA MV Peak A Dayday 172.00 cm/s XCELERA LA size 3.20 cm XCELERA Aortic root 3.00 cm XCELERA LA volume 66.40 cm3 XCELERA RV diastolic dimension (basal) 38.0 mm XCELERA TAPSE 2.39 cm XCELERA AV peak dayday 132.00 cm/s XCELERA LVOT peak dayday 1.35 m/s XCELERA AV VTI 28.30 cm XCELERA LVOT peak VTI 27.70 cm XCELERA AV mean gradient 4.00 mmHg XCELERA AV peak gradient 6.97 mmHg XCELERA AV valve area 3.39 XCELERA Valve area - Index 1.4 XCELERA MV mean gradient 10.00 mmHg XCELERA MV peak gradient 20.07 mmHg XCELERA MV VTI 71.00 cm XCELERA MV valve area by continuity eq 1.35 XCELERA MV pressure 1/2 time 108.00 ms XCELERA MV valve area p 1/2 method 2.04 cm2 XCELERA PV peak gradient 3.41 mmHg XCELERA LV ESV A2C 53.20 mL XCELERA LV ESV A4C 78.50 mL XCELERA Mitral Valve Max Velocity 2.24 cm/s XCELERA LV RWT 2D 56.41 XCELERA AV Velocity Ratio 0.98 XCELERA Left Ventricle Mass 130.07208 897061476 g XCELERA Interventricular Septum Diastolic Thickness by 2D 10 cm XCELERA ZLVIDS -7.02 XCELERA ZLVIDD -7.72 XCELERA Energy loss index 16.04 XCELERA Anatomical Region Laterality Modality Chest N/A Ultrasound Narrative 09/22/2024 7:07 PM EDT Left Ventricle: Left ventricle appears normal in [...] The aortic root is normal in size. Left Ventricle Left ventricle appears normal in size. There is mild increased wall thickness/hypertrophy. Systolic function is normal with an ejection fraction of 55-60%. No segmental wall motion abnormalities. Unable to assess diastolic function due to mitral stenosis. Lateral E' is 3.81 cm/s. Medial E' is 3.92 cm/s. Right Ventricle Right ventricular size appears normal. The right ventricular basal diameter is 38.0 mm. Systolic function is normal. Normal tricuspid annular plane systolic excursion. Left Atrium Left atrium is normal in size. Left atrium volume index is normal. The left atrial volume index is 28.1 mL/m2. Right Atrium Right atrium is normal in size. IVC/SVC IVC appears normal. Mitral Valve The leaflets are mildly thickened. There is annular calcification. There is trace regurgitation. There is moderate stenosis. The mean gradient is 10.00 mmHg. The peak gradient is 20.07 mmHg. Tricuspid Valve Tricuspid valve appears to be normal. There is trace regurgitation. There is no evidence of tricuspid valve stenosis. Aortic Valve The aortic valve was not well visualized. There is trace to mild regurgitation. There is no evidence of aortic valve stenosis. Pulmonic Valve Pulmonic valve structure is grossly normal. There is no regurgitation or stenosis. The peak gradient is 3.41 mmHg. Ascending Aorta The aortic root is normal in size. Pericardium There is a trivial pericardial effusion. Study Details A complete echo was performed using complete 2D, color flow Doppler and spectral Doppler. During the study the apical, parasternal, subcostal and suprasternal views were captured. Definity study was performed. Overall the study quality was adequate. The study had technical difficulties. The study was difficult due to patient's body habitus and unable to lay left lateral. us Melo Hoyos PA-C CV ECHO ORDERABLES Final Re sult * ECG 12 lead (09/22/2024 10:49 AM EDT) Only the most recent of4 resultswithin the time period is included. 09/22/2024 10:4 9 AM EDT Narrative [facility] - 09/23/2024 4:18 PM EDT Anjelica Venegas CONSULTING NETWORKING ENGINEER-POLITICAL SCIENCE INSTRUCTOR ECG ORDERABLES Fin al Result [facility] * Vancomycin, random (09/22/2024 6:14 AM EDT) Only the most recent of3 resultswithin the time period is included. VANCOMYCIN 16.5 5.0 - 40.0 ug/mL 09/22/2024 7:16 AM EDT [facility] Blood Venous blood / Unknown 09/22/2024 6:14 AM EDT 09/22/2024 6:14 AM EDT [facility] - 09/22/2024 7:16 AM EDT Peak 30-40 ug/mL Trough 5-20 ug/ml Anjelica Verena Venegas CONSULTING NETWORKING ENGINEER-POLITICAL SCIENCE INSTRUCTOR LAB BLOOD ORDERABLE S Final Result Performing Organization Address City/[facility]/ZIP Co de Phone Number [facility] [address] [place] [address], [place] [phone] * Clinical Pathology Review (09/21/2024 3:31 PM EDT) Case Report Clinical Pathology Report Case: [id number] Authorizing Provider: Ta Everett MD Collected: 09/21/2024 1531 Ordering Location: [facility] Received: 09/21/2024 1531 - GEN 9 ICU Pathologist: Cecy Olmstead MD Specimen: Blood, Venous 09/23/2024 11:59 AM EDT [facility] Final Diagnosis Prominent band in beta region, recommend immunofixation for further evaluation. Hypoalbuminemia with increase in acute phase reactants. 09/23/2024 11:59 AM EDT [facility] at 1159 EDT Venous blood / Unknown 09/21/2024 3:31 PM EDT 09/21/2024 3:31 PM EDT us Ta Everett MD PATHOLOGY/CYTOLOGY ORDERABLES Fi nal Result [facility] [address] [place] [address], [place] [phone] * CT abdomen and pelvis without contrast (09/20/2024 2:22 PM EDT) Anatomical Region Laterality Modality Body, Abdomen, Body Covera N/A Compu jonah Tomography 09/20/2024 3:47 PM EDT Narrative 09/20/2024 3:[address] ABDOMEN AND PELVIS WITHOUT IV CONTRAST [...] diverticulosis without inflammatory change. PELVIC ORGANS/BLADDER: Containing Ayala catheter, bladder wall thickening may be present. [...] Bipin Mejia MD on 09/20/2024 3:53 PM Procedure Note Bipin Mejia MD - 09/20/2024 CT ABDOMEN AND PELVIS WITHOUT IV CONTRAST HISTORY: Renal stones, obstruction COMPARISON STUDY: Ultrasound 09/19/2024. TECHNIQUE: CT scan of the abdomen and pelvis performed without IV or POcontrast. Coronal and sagittal reformats generated and reviewed. FINDINGS: Solid visceral organs limited in evaluation secondary to lack of IVcontrast. LOWER THORAX: Lower lung atelectasis. HEPATOBILIARY: Scattered hepatic calcifications, no suspicious hepaticmass. No biliary ductal dilatation. Gallbladder is normal. SPLEEN: Unremarkable. PANCREAS: Mild splenomegaly 15 cm craniocaudal dimension ADRENALS: No adrenal nodules. KIDNEYS/URETERS: No urinary tract calculi. There is mild pelvocaliectasisboth kidneys, no significant dilatation of either ureter. No visibledistal obstructing process. No suspicious renal mass. GI TRACT: No bowel obstruction. Appendix is normal. Colonic diverticulosiswithout inflammatory change. PELVIC ORGANS/BLADDER: Containing Ayala catheter, bladder wall thickeningmay be present. No bladder stone. PERITONEUM/RETROPERITONEUM: No free air or fluid. LYMPH NODES: No enlarged lymph nodes. VESSELS: Atherosclerotic calcifications without abdominal aorticaneurysm. BONES AND SOFT TISSUES: No suspicious osseous lesion. IMPRESSION: 1. No urinary tract calculi. There is mild pelvocaliectasis both kidneys,no significant dilatation of either ureter. No visible distal obstructingprocess. 2. Splenomegaly. 3. Bladder wall thickening, please correlate with urinalysis. All CT scans at this facility use dose modulation, iterativereconstruction, and/or weight based dosing when appropriate to reduceradiation dose to as low as reasonably achievable. Finalized by Bipin Mejia MD on 09/20/2024 3:53 PM us Roman Jones MD IMG CT ORDERABLES Final Result * Blood culture #2 (09/20/2024 7:33 AM EDT) Only the most recent of4 resultswithin the time period is included. CULTURE RESULTS NO GROWTH 5 DAYS 09/26/2024 3:12 PM EDT [facility] Blood Venous blood / Unknown 09/20/2024 7:33 AM EDT 09/20/2024 7:33 AM EDT Narrative [facility] - 09/26/2024 3:12 PM EDT Suboptimal volume of blood collected, Results may be affected. Steffanie Lozano CONSULTING NETWORKING ENGINEER-POLITICAL SCIENCE INSTRUCTOR MICROBIOLOGY - GENERAL O RDERABLES Final Result [facility] [address] [place] [address], [place] [phone] * MR brain synaptive protocol (09/20/2024 1:06 AM EDT) Anatomical Region Laterality Modality Neuro, Head, Head and Neck, Neuro Covera N/A Magnetic Resonance 09/20/2024 7:10 AM EDT Narrative 09/20/2024 7:17 AM EDT History: Right temporal lobe mass shown on brain CT COMPARISON: Brain CT from September 18 outside facility [place] PROCEDURE: Multiplanar multisequence images performed through the [...] for surgical planning. I favor a primary STITCHER UTILITY neoplasm such as a glioblastoma or astrocytoma. Metastasis can also present in this fashion. Finalized by Juan Antonio Lindquist MD on 09/20/2024 7:17 AM Procedure Note Juan Antonio Lindquist MD - 09/20/2024 History: Right temporal lobe mass shown on brain CT COMPARISON: Brain CT from September 18 outside facility [place] PROCEDURE: Multiplanar multisequence images performed through the brain withoutcontrast utilizing synaptive protocol for surgical planning. FINDINGS: Right temporal mass midline shift to the opposite side measuring 14 mm.Extensive surrounding vasogenic edema and mass effect partiallycompressing the right lateral ventricle and completely compressing thethird ventricle with dilatation of the left lateral ventricle. The lesionshows heterogeneous intense enhancement and measures 44.4 mm superior to inferior by 46.4 mmanterior to posterior and 38.7 mm medial to lateral Extensive susceptibility artifacts within the process suggesting somecalcification or hemorrhage No extra-axial fluid collections. No MR evidence for an infarct. Diffusion tensor imaging utilized for delineating the associated whitematter tracts. IMPRESSION: Right temporal lobe lesion detailed above for surgical planning. I favor aprimary STITCHER UTILITY neoplasm such as a glioblastoma or astrocytoma. Metastasis canalso present in this fashion. Finalized by Juan Antonio Lindquist MD on 09/20/2024 7:17 AM Chip Zarate CONSULTING NETWORKING ENGINEER-POLITICAL SCIENCE INSTRUCTOR IMG MRI ORDERABLES Fin al Result * Ultrasound retroperitoneal complete (09/19/2024 6:12 AM EDT) Anatomical Region Laterality Modality Body Ultrasound 09/19/2024 6:30 AM EDT Narrative 09/19/2024 6:46 AM EDT US RETROPERITONEAL COMPLETE HISTORY: Acute renal failure, [...] evidence of contour deforming mass or calculi. Ayala catheter noted within the decompressed bladder. IMPRESSION: * Right nephrolithiasis measuring 0.4 cm with mild right hydronephrosis. * Mild left hydronephrosis without visualized calculus. Approved by Resident Tk Najera MD on 09/19/2024 6:30 AM Mao Moreno MD have personally reviewed the image(s) and agree with and/or edited the report Finalized by Mao Varner MD on 09/19/2024 6:46 AM Procedure Note Mao Varner MD - 09/19/2024 US RETROPERITONEAL COMPLETE HISTORY: Acute renal failure, renal size evaluation, rule outhydronephrosis. COMPARISON: None. TECHNIQUE: Grayscale and color Doppler sonographic images of the urinarybladder and both kidneys. FINDINGS: Right kidney: * 10.6 x 5.3 x 6.1 cm. Cortex: 0.7 cm. Normal echogenicity. * There is a 0.4 cm echogenic focus within the right renalpelvis/proximal right ureter which demonstrates twinkle artifact,compatible with renal calculus. There is mild prominence of the rightrenal pelvis which measures 1.2 cm and proximal ureter which measures 0.9cm. Left kidney: * 14.0 x 4.6 x 5.6 cm. Cortex: 0.7 cm. Normal echogenicity. * Mild prominence of the left renal pelvis which measures up to 2.1 cm.No evidence of contour deforming mass or calculi. Ayala catheter noted within the decompressed bladder. IMPRESSION: * Right nephrolithiasis measuring 0.4 cm with mild righthydronephrosis. * Mild left hydronephrosis without visualized calculus. Approved by Resident Tk Najera MD on 09/19/2024 6:30 AM IMao MD have personally reviewed the image(s) and agree withand/or edited the report Finalized by Mao Varner MD on 09/19/2024 6:46 AM us Ta Everett MD IMG US ORDERABLES Final Result * (ABNORMAL) Procalcitonin (09/19/2024 4:12 AM EDT) PROCALCITONIN 0.12(H) <0.05 ng/mL 09/19/2024 6:16 AM EDT [facility] Blood 09/19/2024 4:12 AM EDT 09/19/2024 5:15 AM EDT Narrative [facility] - 09/19/2024 6:16 AM EDT <0.50 ng/mL - Low risk of severe sepsis and/or septic shock. <2.00 ng/mL - Recommend retesting within 6-24 hours. >2.00 ng/mL - High risk of sepsis and/or septic shock. Sandie IBANEZ LAB BLOOD ORDERABLES Final Re sult [facility] [address] [place] [address], * Glomerular basement membrane IgG AB (09/19/2024 4:12 AM EDT) GBM IGG AB <0.2 <1.0 AI 09/21/2024 9:03 AM EDT [facility] Blood 09/19/2024 4:12 AM EDT 09/19/2024 5:15 AM EDT us Ta Everett MD LAB BLOOD ORDERABLES Final Resul t [facility] [address] [place] [address], * Thyroid profile includes TSH FT4 (09/19/2024 4:12 AM EDT) FREE T4 0.86 0.61 - 1.60 ng/dL 09/19/2024 6:16 AM EDT [facility] TSH 2.80 0.49 - 4.67 uIU/mL 09/19/2024 6:16 AM EDT [facility] Blood 09/19/2024 4:12 AM EDT 09/19/2024 5:15 AM EDT us Sandie IBANEZ LAB BLOOD ORDERABLES Final Re sult Performing Organization Address City/[facility]/ZIP Co de Phone Number [facility] [address] [place] [address], [place] [phone] * Proteinase 3 AB PR3 (09/19/2024 4:12 AM EDT) PROTEINASE 3 IGG AB <0.2 <1.0 AI 09/21/2024 9:03 AM EDT [facility] Blood 09/19/2024 4:12 AM EDT 09/19/2024 5:15 AM EDT us Ta Everett MD LAB BLOOD ORDERABLES Final Resul t Performing Organization Address City/[facility]/ZIP Co de Phone Number [facility] [address] [place] [address], [place] [phone] * Myeloperoxidase AB (09/19/2024 4:12 AM EDT) MYELOPEROXIDASE AB <0.2 <1.0 AI 2024 9:03 AM EDT [facility] Blood 09/19/2024 4:12 AM EDT 09/19/2024 5:15 AM EDT us Ta Everett MD LAB BLOOD ORDERABLES Final Resul t [facility] [address] [place] [address], [place] [phone] * (ABNORMAL) Complement profile (C3 AND C4) (09/19/2024 4:12 AM EDT) COMPLEMENT C3 196(H) 86 - 184 mg/dL 09/19/2024 6:16 AM EDT [facility] COMPLEMENT C4 42 16 - 47 mg/dL 09/19/2024 6:16 AM EDT [facility] Blood 09/19/2024 4:12 AM EDT 09/19/2024 5:15 AM EDT us Ta Everett MD LAB BLOOD ORDERABLES Final Resul t Performing Organization Address [facility]/ZIP Co de Phone Number [facility] [address] [place] [address], [place] [phone] * Iron and TIBC (09/19/2024 4:12 AM EDT) IRON 56 50 - 170 ug/dL 09/19/2024 9:58 AM EDT [facility] TRANSFERRIN 221 168 - 336 mg/dL 09/19/2024 9:58 AM EDT [facility] IRON BINDING 309 250 - 425 ug/dL 09/19/2024 9:58 AM EDT [facility] IRON SATURATION 18 15 - 50 % SATURATION 09/19/2024 9:58 AM EDT [facility] Blood 09/19/2024 4:12 AM EDT 09/19/2024 5:15 AM EDT us Ta Everett MD LAB BLOOD ORDERABLES Final Resul t [facility] [address] [place] [address], [place] [phone] * COLE Screen w/ Reflex (09/19/2024 4:12 AM EDT) Pathologist [facility] COLE SCREEN W/REFLEX Negative Negative 09/21/2024 9:03 AM EDT [facility] Blood 09/19/2024 4:12 AM EDT 09/19/2024 5:15 AM EDT Narrative [facility] - 09/21/2024 9:03 AM EDT Testing performed using multiplex flow immunoassay. Eleven difference antigens associated with systemic autoimmunie diseases (dsDNA, Sm, Sm/HALL MONITOR, HALL MONITOR, Chromatin, SSA, SSB, Lilian-1, Sc170, Ribo P, Centromere B) are included in this sreening tests. us Ta Everett MD LAB BLOOD ORDERABLES Final Resul t [facility] [address] [place] [address], [place] [phone] * (ABNORMAL) Protein electrophoresis, serum (09/19/2024 4:12 AM EDT) Pathologist [facility] TOTAL PROTEIN 6.4 6.0 - 8.0 g/dL 09/23/2024 5:05 PM EDT [facility] ALPHA 1 GLOBULIN 0.6(H) 0.1 - 0.4 g/dL 09/23/2024 5:05 PM EDT [facility] ALPHA 2 GLOBULIN 1.2(H) 0.4 - 1.1 g/dL 09/23/2024 5:05 PM EDT [facility] BETA GLOBULIN 1.0 0.5 - 1.2 g/dL 09/23/2024 5:05 PM EDT [facility] GAMMA GLOBULIN 0.9 0.5 - 1.6 g/dL 09/23/2024 5:05 PM EDT [facility] Protein Electrophoresis Interp See Pathology Report 09/23/2024 5:05 PM EDT [facility] Albumin 2.8(L) 3.4 - 5.3 g/dL 09/23/2024 5:05 PM EDT [facility] Blood 09/19/2024 4:12 AM EDT 09/19/2024 5:15 AM EDT us Ta Everett MD LAB BLOOD ORDERABLES Final Resul t Performing Organization Address [facility] Co de Phone Number [facility] [address] [place] [address], [place] [phone] * Myoglobin, serum (09/19/2024 4:12 AM EDT) Only the most recent of12 resultswithin the time period is included. SERUM MYOGLOBIN 33.4 14.3 - 65.8 ng/mL 09/19/2024 5:56 AM EDT [facility] Blood 09/19/2024 4:12 AM EDT 09/19/2024 5:15 AM EDT Sandie IBANEZ LAB BLOOD ORDERABLES Final Re sult Performing Organization Address City/[facility]/ZIP Co de Phone Number [facility] [address] [place] [address], [place] [phone] * Folate (09/19/2024 4:12 AM EDT) FOLIC ACID 13.1 >5.8 ng/mL 09/19/2024 10:37 AM EDT [facility] Blood 09/19/2024 4:12 AM EDT 09/19/2024 5:15 AM EDT us Ta Everett MD LAB BLOOD ORDERABLES Final Resul t Performing Organization Address City/[facility]/ZIP Co de Phone Number [facility] [address] [place] [address], [place] [phone] * Ferritin (09/19/2024 4:12 AM EDT) FERRITIN 130 11 - 307 ng/mL 09/19/2024 10:34 AM EDT [facility] Blood 09/19/2024 4:12 AM EDT 09/19/2024 5:15 AM EDT us Ta Everett MD LAB BLOOD ORDERABLES Final Resul t Performing Organization Address City/[facility]/ZIP Co de Phone Number [facility] [address] [place] [address], [place] [phone] * Vitamin B12 (09/19/2024 4:12 AM EDT) VITAMIN B12 517 180 - 914 pg/mL 09/19/2024 10:38 AM EDT [facility] Blood 09/19/2024 4:12 AM EDT 09/19/2024 5:15 AM EDT us Ta Everett MD LAB BLOOD ORDERABLES Final Resul t Performing Organization Address [facility]/ZIP Co de Phone Number [facility] [address] [place] [address], [place] [phone] * (ABNORMAL) CK Total (09/19/2024 4:12 AM EDT) Only the most recent of13 resultswithin the time period is included. CPK 18(L) 24 - 170 U/L 09/19/2024 6:16 AM EDT [facility] Blood 09/19/2024 4:12 AM EDT 09/19/2024 5:15 AM EDT us Sandie IBANEZ LAB BLOOD ORDERABLES Final Re sult Performing Organization Address City/[facility]/ZIP Co de Phone Number [facility] [address] [place] [address], [place] [phone] * (ABNORMAL) Blood Gas, Arterial (09/19/2024 3:47 AM EDT) Sample type ARTERIAL 09/19/2024 3:52 AM EDT [facility] pH, Arterial 7.364 7.350 - 7.450 09/19/2024 3:52 AM EDT [facility] pCO2, Arterial 29.4(L) 35.0 - 45.0 mmHg 09/19/2024 3:52 AM EDT [facility] PO2, Arterial 78(L) 80 - 100 mmHg 09/19/2024 3:52 AM EDT [facility] Base, Deficit -8.0(L) 0.0 - 2.0 mmol/L 09/19/2024 3:52 AM EDT [facility] HCO3, Arterial 16.8(L) 22.0 - 26.0 mmol/L 09/19/2024 3:52 AM EDT [facility] %O2 Saturation, Arterial 95.0 >90.0 % 09/19/2024 3:52 AM EDT [facility] Quinten's test Pass 09/19/2024 3:52 AM EDT [facility] SPO2 78 % 09/19/2024 3:52 AM EDT [facility] Sample site L Rad 09/19/2024 3:52 AM EDT [facility] Source Of Oxygen Room Air 09/19/2024 3:52 AM T [facility] arterial (Blood, Arterial) 09/19/2024 3:47 AM EDT 09/19/2024 3:52 AM EDT us Lewis Botello DO LAB BLOOD ORDERABLES Final Resul t [facility] [address] [place] [address], [place] * (ABNORMAL) POCT Nursing Urine Macroscopic UA (09/19/2024 1:37 AM EDT) POC Urine Specific Pierson 1.020 1.010, 1.015, 1.020, 1.025 09/19/2024 1:39 AM EDT [facility] POC Urine Leukocyte Esterase Negative Negative 09/19/2024 1:39 AM EDT [facility] POC Urine Nitrite Negative Negative 09/19/2024 1:39 AM EDT [facility] POC Urine pH 5.5 5.0, 6.0, 6.5, 7.0, 7.5, 8.0, 8.5, 5.5 09/19/2024 1:39 AM EDT [facility] POC Urine Protein 100 mg/dL(A) Negative 09/19/2024 1:39 AM EDT [facility] POC Urine Glucose Negative Negative 09/19/2024 1:39 AM EDT [facility] POC Urine Ketones Negative Negative 09/19/2024 1:39 AM EDT [facility] POC Urine Urobilinogen 0.2 E.U./dL 0.2 E.U./dL, 1.0 E.U./dL 09/19/2024 1:39 AM EDT [facility] POC Urine Bilirubin Negative Negative 09/19/2024 1:39 AM EDT [facility] POC Urine Blood/HGB Large(A) Negative 09/19/2024 1:39 AM EDT [facility] Urine 09/19/2024 1:37 AM EDT 09/19/2024 1:39 AM EDT us Lewis Botello DO POINT OF CARE TEST ORDERABLES Fi nal Result [facility] [address] [place] [address], * (ABNORMAL) BLOOD CULTURE IDENTIFICATION PANEL (09/19/2024 1:23 AM EDT) Staphylococcus epidermidis PCR Detected(A) Not Detected 09/19/2024 8:31 PM EDT [facility] mecA/C gene PCR Detected (Methicilli n Resistance) (A) Not Detected 09/19/2024 8:31 PM EDT [facility] Blood Venous blood / Unknown 09/19/2024 1:23 AM EDT 09/19/2024 1:35 AM EDT Ken Ontiveros MD MICROBIOLOGY - GENERAL ORDERABL ES Final Result [facility] [address] [place] [address], [place] [phone] * Troponin I, High Sensitivity 1 Hour (09/19/2024 1:23 AM EDT) Only the most recent of2 resultswithin the time period is included. TROPONIN I, HIGH SENSITIVITY 10 <16 ng/L 09/19/2024 1:57 AM EDT [facility] Blood Venous blood / Unknown 09/19/2024 1:23 AM EDT 09/19/2024 1:27 AM EDT us Ken Ontiveros MD LAB BLOOD ORDERABLES Final Resu lt Performing Organization Address City/[facility]/ZIP Co de Phone Number [facility] [address] [place] [address], [place] * (ABNORMAL) Protein creat ratio (09/19/2024 1:23 AM EDT) URINE PROTEIN, RANDOM (MG/L) 1,350(H) <120 mg/L 09/19/2024 3:49 AM EDT [facility] URINE CREATININE,RDM 83.54 mg/dL 09/19/2024 3:49 AM EDT [facility] U/PRO/TRAVEL DIRECTOR RATIO CALC 1.62(H) <=0.20 09/19/2024 3:49 AM EDT [facility] Urine 09/19/2024 1:23 AM EDT 09/19/2024 3:14 AM EDT Narrative [facility] - 09/19/2024 3:49 AM EDT Nephrotic Syndrome is associated with ratios >3.5 us Ta Everett MD URINE ORDERABLES Final Result Performing Organization Address City/[facility]/ZIP Co de Phone Number [facility] [address] [place] [address], [place] [phone] * Extra Urine (09/19/2024 1:23 AM EDT) Extra Tube Auto Resulted 09/19/2024 4:01 AM EDT [facility] Urine 09/19/2024 1:23 AM EDT 09/19/2024 3:14 AM EDT us Ken Ontiveros MD URINE ORDERABLES Final Result [facility] [address] [place] [address], [place] [phone] * Urine Creatinine,random (09/19/2024 1:23 AM EDT) URINE CREATININE,RDM 83.54 mg/dL 09/19/2024 3:49 AM EDT [facility] Urine 09/19/2024 1:23 AM EDT 09/19/2024 3:14 AM EDT us Ta Everett MD URINE ORDERABLES Final Result Performing Organization Address City/[facility]/ZIP Co de Phone Number [facility] [address] [place] [address], [place] [phone] * Sodium, urine, random (09/19/2024 1:23 AM EDT) URINE SODIUM,RANDOM 69 mmol/L 09/19/2024 3:49 AM EDT [facility] Urine 09/19/2024 1:23 AM EDT 09/19/2024 3:14 AM EDT us Ta Everett MD URINE ORDERABLES Final Result [facility] [address] [place] [address], [place] [phone] * (ABNORMAL) Urinalysis (09/19/2024 1:23 AM EDT) COLOR Colorless Yellow, Colorless 09/19/2024 7:33 AM EDT [facility] TURBIDITY Hazy(A) Clear 09/19/2024 7:33 AM EDT [facility] SPECIFIC GRAVITY 1.013 1.003 - 1.035 09/19/2024 7:33 AM EDT [facility] NITRITE Negative Negative 09/19/2024 7:33 AM EDT [facility] PH,URINE 5.5 5.0 - 8.5 09/19/2024 7:33 AM EDT [facility] LEUKOCYTE ESTERASE Small(A) Negative 09/19/2024 7:33 AM EDT [facility] PROTEIN 70 mg/dL(A) Negative 09/19/2024 7:33 AM EDT [facility] KETONES (URINE) Negative Negative 7:33 AM EDT [facility] UROBILINOGEN <1.1 eu/dL <1.1 eu/dL 09/19/2024 7:33 AM EDT [facility] BILIRUBIN (URINE) Negative Negative 09/19/2024 7:33 AM T [facility] BLOOD/HGB Moderate(A) Negative 09/19/2024 7:33 AM T [facility] MUCOUS Present(A) None 09/19/2024 7:33 AM [facility] R.B.CELLS 17(H) 0 - 5 09/19/2024 7:33 AM EDT [facility] SQUAMOUS EPITHELIUM 1 0 - 5 09/19/2024 7:33 AM T [facility] W.B.CELLS 39(H) 0 - 5 09/19/2024 7:33 AM [facility] GLUCOSE (URINE) Negative Negative 7:33 AM [facility] Urine 09/19/2024 1:23 AM EDT 09/19/2024 3:14 AM EDT [facility] - 09/19/2024 7:33 AM EDT Urine received without preservative. Delays in transport may affect results. Interpret with caution. A clinical correlation is recommended. Ta Everett MD URINE ORDERABLES Final Result [facility] [address] [place] [address], [place] [phone] * Troponin I, High Sensitivity 0 Hour (09/19/2024 12:26 AM EDT) TROPONIN I, HIGH SENSITIVITY 11 <16 ng/L 09/19/2024 1:07 AM EDT [facility] Blood Venous blood / Unknown 09/19/2024 12:26 AM EDT 09/19/2024 12:40 AM EDT Ken Ontiveros MD LAB BLOOD ORDERABLES Final Resu lt [facility] [address] [place] [address], [place] * Lactate w/ Reflex (09/19/2024 12:26 AM EDT) LACTATE W/REFLEX 0.7 0.4 - 2.0 mmol/L 09/19/2024 1:49 AM EDT [facility] Blood Venous blood / Unknown 09/19/2024 12:26 AM EDT 09/19/2024 12:42 AM EDT Narrative [facility] - 09/19/2024 1:49 AM EDT Result did not trigger repeat Lactate, re-order if needed. Ken Ontiveros MD LAB BLOOD ORDERABLES Final Resu lt [facility] [address] [place] [address], [place] [phone] * APTT (09/19/2024 12:26 AM EDT) Only the most recent of2 resultswithin the time period is included. APTT 28 26 - 37 sec 09/19/2024 1:17 AM EDT [facility] [facility] Blood Venous blood / Unknown 09/19/2024 12:26 AM EDT 09/19/2024 12:39 AM EDT Ken Ontiveros MD LAB BLOOD ORDERABLES Final Resu lt Performing Organization Address City/[facility] Co de Phone Number [facility] [address] [place] [address], * (ABNORMAL) Protime & INR (09/19/2024 12:26 AM EDT) Only the most recent of2 resultswithin the time period is included. PROTIME 14.0(H) 9.8 - 13.2 sec 09/19/2024 1:17 AM EDT [facility] INR 1.2 0.9 - 1.2 09/19/2024 1:17 AM EDT [facility] Blood Venous blood / Unknown 09/19/2024 12:26 AM EDT 09/19/2024 12:39 AM EDT Ken Ontiveros MD LAB BLOOD ORDERABLES Final Resu lt Performing Organization Address City/[facility]/ZIP Co de Phone Number [facility] [address] [place] [address], * Hemoglobin A1c (09/19/2024 12:26 AM EDT) HEMOGLOBIN A1C 5.4 4.4 - 5.6 % 09/19/2024 6:15 AM EDT [facility] Comment: ADA Guidelines Result HgbA1c Normal : less than 5.7 % Prediabetes : 5.7 % to 6.4 % Diabetes : > 6.4 % Use with caution in patients with abnormal hemoglobin variants as the half-life of red blood cells and in vivo glycation rates are affected. EST. AVERAGE GLUCOSE 108 mg/dL 09/19/2024 6:15 AM EDT [facility] Blood Venous blood / Unknown 09/19/2024 12:26 AM EDT 09/19/2024 12:39 AM EDT Sandie IBANEZ LAB BLOOD ORDERABLES Final Re sult [facility] [address] [place] [address], * Ammonia (09/19/2024 12:26 AM EDT) AMMONIA 24 18 - 72 umol/L 09/19/2024 1:48 AM EDT [facility] Blood Venous blood / Unknown 09/19/2024 12:26 AM EDT 09/19/2024 12:43 AM EDT Ken Ontiveros MD LAB BLOOD ORDERABLES Final Resu lt Performing Organization Address [facility] Co de Phone Number [facility] [address] [place] [address], * Potassium (08/31/2024 11:05 AM EDT) Only the most recent of2 resultswithin the time period is included. Potassium, Bld 4.0 3.5 - 5.0 mmol/L 08/31/2024 11:28 AM EDT [facility] PLASMA 08/31/2024 11:0 5 AM EDT 08/31/2024 11:09 AM EDT Richard Guadalupe MD LAB BLOOD ORDERABLES Final Res ult Performing Organization Address City/[facility]/ZIP Co de Phone Number [address] [place] [address] * (ABNORMAL) Lipid profile (08/29/2024 12:52 PM EDT) Cholesterol 151 150 - 200 mg/dL 08/29/2024 9:16 PM EDT [facility] Triglycerides 112 27 - 150 mg/dL 08/29/2024 9:16 PM EDT [facility] HDL Cholesterol 29(L) >39 mg/dL 9:16 PM EDT [facility] Comment: HDL <40 mg/dL - High Risk HDL > or = 40mg/dL- Desirable HDL >60 mg/dL - Negative Risk VLDL 22 0 - 30 mg/dL 08/29/2024 9:16 PM EDT [facility] LDL (calc) 100 <130 mg/dL 08/29/2024 9:16 PM EDT [facility] Comment: LDL <100 mg/dL - Desirable LDL >160 mg/dL - High Risk Cholesterol:HDL Ratio 5.2(H) 1.0 - 5.0 08/29/2024 9:16 PM EDT [facility] PLASMA 08/29/2024 12:5 2 PM EDT 08/29/2024 1:02 PM EDT us Larry Coles CONSULTING NETWORKING ENGINEER-POLITICAL SCIENCE INSTRUCTOR LAB BLOOD ORDERABLES Fin al Result [facility] [address] [facility], [address] [place] [address] * POCT Ionized Calcium (08/29/2024 7:58 AM EDT) [facility] Portable ICA 4.6 4.5 - 5.3 mg/dL 08/29/2024 8:00 AM EDT [facility] Blood / Unknown 08/29/2024 7 :58 AM EDT 08/29/2024 8:00 AM EDT us Richard Guadalupe MD POINT OF CARE TEST ORDERABLES Final Result Performing Organization Address City/[facility]/ZIP Co de Phone Number [address] [address] * (ABNORMAL) Troponin I, High Sensitivity 3 Hour (08/28/2024 11:50 PM EDT) 3 Hour Trop I, High Sensitivity 42(H) <16 ng/L 08/29/2024 12:30 AM EDT [facility] Comment: Elevations of hs-Troponin may be due to causes other than myocardial ischemia. Recommend serial hs-Troponin testing be performed. For the initial evaluation and management of chest pain patients, refer to the algorithms linked below. Emergency Patient: [email or web address] Inpatient: [email or web address] Blood Serum / Unknown 08/28/2024 1 1:50 PM EDT 08/29/2024 12:02 AM EDT us Gia Montejo CONSULTING NETWORKING ENGINEER-POLITICAL SCIENCE INSTRUCTOR LAB BLOOD ORDERABLES Alisha l Result [address] [address] * CT angiogram chest (08/28/2024 12:34 PM EDT) Anatomical Region Laterality Modality Lung, Body, Chest, Vascular, Body Covera N/A Computed Tomography 08/28/2024 12:3 8 PM EDT Narrative 08/28/2024 12:40 PM EDT CLINICAL INFORMATION: Status post fall with injury [...] for acute or suspicious pathology in the [id number]-tftq. The trachea and bronchi are patent. No [...] Reji Saini MD on 08/28/2024 12:40 PM Procedure Note Reji Saini MD - 08/28/2024 CLINICAL INFORMATION: Status post fall with injury to the left side of thechest.. elevated dimer TECHNIQUE: CT angiography of the chest with intravenous contrast. MIP reformats were generated on a separate workstation under concurrentphysician supervision and reviewed to further define anatomy and possiblepathology. All CT scans at this facility use dose modulation, iterativereconstruction, and/or weight based dosing when appropriate to reduceradiation dose to as low as reasonably achievable. COMPARISON: No relevant prior studies available. FINDINGS: Visualized thyroid gland is normal. No enlarged axillary, supraclavicularor mediastinal lymph nodes. Thoracic aorta nonaneurysmal. Normal variation 4 vessel aortic arch. Nopulmonary embolism given contrast bolus timing limitations. The heart sizeis normal. Heavy burden of coronary calcifications. No pericardialeffusion. The esophagus is unremarkable. Images of the upper abdomen are negativefor acute or suspicious pathology in the bwish-na-viho. The trachea and bronchi are patent. No filling defects are identified. Nosuspicious pulmonary nodules or masses. Calcified and noncalcifiedpulmonary nodules are noted the largest distinct pulmonary nodule in theright upper lobe measuring 4 mm. No dedicated follow-up imaging isrecommended with no provided history of malignancy or smoking. No aggressive osseous lesions. No acute fractures. Age compatibledegenerative changes in the osseous structures. IMPRESSION: * No acute intrathoracic findings. Finalized by Reji Saini MD on 08/28/2024 12:40 PM [address] IMG CT ORDERABLES Final Re sult * (ABNORMAL) Troponin I, High Sensitivity (08/28/2024 10:34 AM EDT) Pathologist [facility] Troponin I, High Sensitivity 29(H) <16 ng/L 08/28/2024 11:05 AM EDT [facility] Comment: Elevations of hs-Troponin may be due to causes other than myocardial ischemia. Recommend serial hs-Troponin testing be performed. For the initial evaluation and management of chest pain patients, refer to the algorithms linked below. Emergency Patient: [email or web address] Inpatient: [email or web address] Blood Serum / Unknown 08/28/2024 1 0:34 AM EDT 08/28/2024 10:36 AM EDT Gabby PHILLIPS LAB BLOOD ORDERABLES Final Result [address], [place] [address] * (ABNORMAL) D-Dimer (08/28/2024 10:34 AM EDT) D-dimer 5,157(H) <255 ng/mL DDU 08/28/2024 11:17 AM EDT [facility] Comment: Results >=255ng/mL DDU: Results may be indicative of the presence of VTE. The use of the Wells score and further diagnostic tests should be considered. Elevated D-Dimer levels can also be associated with DIC, neoplasm, , trauma and liver disease. Elevated levels of rheumatoid factor may lead to an overestimation of the D-Dimer level. Blood (PLASMA) 08/28/2024 10 :34 AM EDT 08/28/2024 10:36 AM EDT Gabby Haro CONSULTING NETWORKING ENGINEER-POLITICAL SCIENCE INSTRUCTOR LAB BLOOD ORDERABLES Final Result [facility] [address] [place] [address] * SARS/FLU A+B/RSV by NAAT/Molecular (M4RT Collection Tube) (08/28/2024 10:32 AM EDT) Pathologist [facility] FLU A PCR Negative Negative^Ne gative 08/28/2024 11:42 [facility] PCR Negative Negative^Ne health systemive 08/28/2024 11:42 AM [facility] RSV by PCR Negative Negative^Ne health systemive 08/28/2024 11:42 AM [facility] SARS CoV 2 BY PCR Not Detected Not Detected^No t Detected 08/28/2024 11:42 AM [facility] Comment: NOTE The Xpert Xpress SARS-CoV-2/Flu/RSV Plus test [...] operators who are performing tests using either Language Systems or UBIKOD systems and is limited to laboratories that [...] specimen repeat. Fact Sheet for Healthcare Providers: https://www.fda.gov/media/273770/download Fact Sheet for Patients: https://www.fda.gov/media/598294/download Nasopharyngeal structure / Unknown 08/28/2024 10:32 AM EDT 08/28/2024 10:37 AM EDT Gabby Haro CONSULTING NETWORKING ENGINEER-POLITICAL SCIENCE INSTRUCTOR MICROBIOLOGY - GENERAL ORD ERABLES Final Result [address], [place] [address] from Last 3 Months Insurance [employer] MEDICARE [employer] MEDICARE Advance Directives * Full Code (Latest Code Status on File) Date Activated Date Inactivated Comments 09/19/2024 4:15 AM 09/29/2024 2:25 AM * Full Code Date Activated Date Inactivated Comments 08/28/2024 2:20 PM 09/01/2024 6:45 PM Care Teams Grades 9 Through 12 Teacher Relationship Specialty Start Date End Date Kristin Gracia APRN-POLITICAL SCIENCE INSTRUCTOR PCP - General Nurse Practitioner 08/28/24
--- OUTSIDE RECORDS SUMMARY | 2024-11-07 10:54 | XMS_ITS | Encounter Summary ---
Author Organization [email or web address] Address [id number] [address] [place] [address] Care Team Providers Care Operations Lead Name Role Phone Kristin Gracia GLOBAL CHIEF CREATIVE OFFICER-BILL BOARD POSTER Primary Care Provider Encounter Details Date Type Department Care Team (Late st Contact Info) Description 09/19/2024 Orders Only [facility] External Film Storage [address] [place] [phone] Transcribe, Orders Support User Pain (Primary Dx) Social History Tobacco Use Types Packs/Day Years Used Date Smoking Tobacco: Some Days Cigarettes Smokeless Tobacco: Never Alcohol Use Standard Drinks/Week Comments Never 0 (1 standard drink = 0.6 oz pur e alcohol) [facility] Utilities Answer Date Recorded In the past 12 months has e electric, gas, oil, or water company [...] on file documented as of this encounter Functional Status documented as of this encounter Plan of Treatment Upcoming Encounters Date Type Department Care Team (Late st Contact Info) Description 11/10/2024 1:10 PM EDT Office Visit [facility] [address] [place] [phone] Juni Espinal MD [address] [place] [phone] 12/14/2024 11:00 AM EDT Office Visit [facility] [address] [place] [phone] Laura Gunn MD [address] [place] [address] [phone] documented as of this encounter Goals Goal Patient Goal Type Associated Problems Recent Progress Patient-Stated? Author SNF General Yes Amparo Lamas LSW Note: Evaluation of progress towards goal: SNF recommended, pt agreeable to SNF stating she is not able to care for self at home at this time documented as of this encounter Results * X-ray chest 1 view (09/18/2024 8:00 PM EDT) us Scanning Provider External IMG DIAGNOSTIC IMAGIN G ORDERABLES Final Result * CT brain without contrast (09/18/2024 6:35 PM EDT) us Scanning Provider External IMG CT ORDERABLES Fin al Result documented in this encounter Visit Diagnoses Diagnosis Pain- Primary Generalized pain documented in this encounter Care Teams Operations Lead Relationship Specialty Start Date End Date Kristin Gracia, ELAN-BILL BOARD POSTER PCP - General Nurse Practitioner 08/28/24 documented as of this encounter
--- OUTSIDE RECORDS SUMMARY | 2024-11-07 10:54 | XMS_ITS | Patient Health Record ---
Author Organization [facility] Address [address] [place], [place] [id number] Care Team Providers Care Fine Arts Instructor Name Role Phone Dian Salgado Unavailable [phone] Allergies No Known Allergies Reason For Referral No Information Medications Medication [...] History Observation Description Sex Assigned At Female Problems Problem Type SNOMED Code ICD Code Onset Dates Problem Status W/U Status Risk Notes Problem Body mass index 40+ - morbidly obese (089134274) BMI 40.0-44.9, adult (Z68.41) Active confirmed Vital Signs Heart Rate 82 /min 07/22/2024 Blood pressure diastolic 82 mm Hg 07/22/2024 Height-cm 170.18 cm 07/22/2024 Weight-kg 136.08 kg 07/22/2024 Height 5'7 in 07/22/2024 Blood pressure systolic 112 mm Hg 07/22/2024 Weight 300 lbs 07/22/2024 BMI 46.98 kg/m2 07/22/2024 Encounters Encounter Location Date Provider Diagnosis [facility] [address], [place] [phone] 07/22/2024 Dian Salgado BMI 40.0-44.9, joao lt Z68.41 ; Encounter for screening for dental disorders Z13.84 ; Necrosis of pulp K04.1 ; Dental caries into dentine K02.62 ; Encounter for dental examination and cleaning with abnormal findings Z01.21 ; Complete loss of teeth, unspecified cause, class I K08.101 and Partial loss of teeth, unspecified cause, class I K08.401 Assessments Encounter Date Diagnosis (ICD Code) Assessment Notes Treatment Notes Treatment Clinical Notes Section Notes 07/22/2024 BMI 40.0-44.9, adult (ICD-10 - Z68.41) 07/22/2024 Encounter for screening for dental disorders (ICD-10 - Z13.84) 07/22/2024 Necrosis of pulp (ICD-10 - K04.1) 07/22/2024 Dental caries into dentine (ICD-10 - K02.62) 07/22/2024 Encounter for dental examination and cleaning with abnormal findings (ICD-10 - Z01.21) 07/22/2024 Complete loss of teeth, unspecified cause, class I (ICD-10 - K08.101) 07/22/2024 Partial loss of teeth, unspecified cause, class I (ICD-10 - K08.401) Plan Of Treatment No Information Insurance Providers Payer Name Payer Address Payer Phone Subscriber Number Group Number Insured Name Patient Relationship to Insured Coverage Start Date Coverage End Date [facility] Medicare Advantage [facility] [address] [address] [place] [address] [phone] [id number] Yamilka Yates Self - patient is the insured 5 [facility] [address] [address] [place] [address] [phone] [id number] Yamilka Yates Self - patient is the insured 5
--- OUTSIDE RECORDS SUMMARY | 2024-11-07 10:54 | XMS_ITS | Encounter Summary ---
Author Organization [facility] Address [address] [place] [address] Care Team Providers Care Zipper Setter Lockstitch Name Role Phone HarveyberenicejesicaKristin beltran SENIOR DESIGNER Unavailable [phone] Maxim Lanza MD Primary Care Provider [phone] Encounter Details Date Type Department Care Team (Late st Contact Info) Description 02/28/2024 Abstract [facility] [address] [place] [phone] Quyen Garcia RN [address] [place], [place] Social History Tobacco Use Types Packs/Day Years [...] often do you attend chur ch or temple services? 1 to 4 times per year 06/04/2023 Do you belong to any clubs o r organizations such as episcopal groups, unions, fraternal or athletic groups, or [...] Date Recorded Patient Health Questionnaire-2 Score 2 12/02/2023 [facility] - Occupational Stress Questionnaire Answer Date [...] slept in a correction (including now)? No 06/04/2023 Comments Unknown Sex [...] Time PHQ-9 Depression Total Score: 4 05/01/20 23 8:13 AM EST documented as of this encounter Care Teams Zipper Setter Lockstitch Relationship Specialty Start Date End Date Maxim Lanza MD [address] [place] [phone] PCP - General Family Medicine 07/15/23 Kristin Gracia NP [address] [place] [address] Primary Care Provider Family Medicine 05/20/22 documented as of this encounter
--- OUTSIDE RECORDS SUMMARY | 2024-11-07 10:54 | XMS_ITS | Encounter Summary ---
Author Organization [facility] Address [address] [place] [address] Care Team Providers Care Fly Fishing Guide Name Role Phone Frances Hills (Rn) marketing producer Provider Valdez Bhandari MD Primary Care Provider [phone] Dian Smith PA-C Unavailable [phone] Malinda Lopez APRN.[facility] Unavailable [phone] Source Comments In the event this information is protected by the Federal Confidentiality of Alcohol and Drug AbusePatient Records regulations: The Federal rules restrict any use of the information to criminally investigate or prosecute any alcohol or drug abuse patient.[facility] Encounter Details Date Type Department Care Team (Late st Contact Info) Description 03/11/2020 Patient [facility] [address] [place] [phone] Provider, [facility] Social History Tobacco Use Types Packs/Day Years Used Date Smoking Tobacco: Former Cigarettes 1 20 0 12/13/1996 - 12/13/2016 Smokeless Tobacco: Never Comments:plans to try to fredy t at some point but not ready. Alcohol Use Standard Drinks/Week Comments Yes 0 (1 standard drink = 0.6 oz pur e alcohol) rare PHQ-2 Answer Date Recorded PHQ-2 score 2 07/31/2019 Comments No Sex and Gender Information Value [...] documented as of this encounter Care Teams Fly Fishing Guide Relationship Specialty Start Date End Date Reinier August (Rn), RN PCP - General 12/06/17 10/31/20 Valdez Acosta MD [address] [place] [address] PCP - General Internal Medicine 11/01/20 Dian Smith PA-C [address] [place] [phone] [facility] 04/26/24 05/21/24 Malinda Lopez, SUPERVISOR PIPELINE MAINTENANCE.[facility] [address] [place] [phone] [facility] 04/26/24 documented as of this encounter
--- OUTSIDE RECORDS SUMMARY | 2024-11-07 10:54 | XMS_ITS | Continuity of Care Document ---
Author Organization [facility] Address [address] [place] [address] Insurance Providers Payer Plan Claims Address Claims Phone Policy Number Group Number Relation Employer Guarantor Name Guarantor Guarantor Address Guarantor Phone [facility] [employer] [place] [place] [address] [address], [place] [address] tel:[phone] [employer] Medica re Advant age [facility] AARP Medic are Advan tage [facility] [address] [address], [place] [address] tel:[phone] [id number] [facility] [address] [address], [place] [address] tel:[phone] Problems Condition ICD9 code ICD10 code SNOMED code Start Date End Date S tatus Multiple sclerosis G35 09/01/2024 Ac tive Rhabdomyolysis M62.82 09/01/2024 Active Weakness R53.1 09/01/2024 Active Generalized anxiety disorder F41.1 09/01/2024 Active Panic disorder [episodic paroxysmal anxiety] F41.0 09/01/2024 Activ e Hyperlipidemia, unspecified E78.5 09/01/2024 Active Essential (primary) hypertension I10 09/01/2024 Active Primary insomnia F51.01 09/01/2024 Acti ve Obstructive sleep apnea (adult) (pediatric) G47.33 09/01/2024 Activ e Depression, unspecified F32.A 09/01/2024 Active Dysphagia, oropharyngeal phase R13.12 09/01/2024 Active Cognitive communication deficit R41.841 09/01/2024 Active Muscle weakness (generalized) M62.81 09/02/2024 Active Difficulty in walking, not elsewhere classified R26.2 09/02/2024 Active Limitation of activities due to disability Z73.6 09/03/2024 Active Nutritional deficiency, unspecified E63.9 09/03/2024 Active Traumatic rupture of lumbar intervertebral disc, 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 09/01/2024 Active Results Test Value / Unit Interpretation Reference Ran Blood chemistry[[id number]] Glucose [Mass/volume] in Ser um or Plasma [2345-7] 285 mg/dL N Tuberculosis reaction wheal[ 74891-8] Tuberculosis reaction wheal [19581-9] 0 mm NEG Tuberculosis reaction wheal[ 91501-4] Tuberculosis reaction wheal [20198-8] See note TB test Tuberculosis reaction wheal[ 27829-1] Tuberculosis reaction wheal [37635-0] 0 mm NEG Allergies, adverse reactions, alerts Substance Reaction Date Status Type No allergies have been recorded Non Drug Immunizations Vaccine Route Date Status COVID-19 Vaccine Unassigned Route of Administration Refused Pneumococcal Vaccine Unassigned Route of Administratio n 09/07/2024 Refused Medications Medication Instructions Route Dosage Frequency Start Date Stop Date Indications Status acetaminophen 325 mg tablet (acetaminophen ) [id number]=565hr, oral, Every 6 Hours - PRN, mild pain oral 1.0 6.0 h 09/19 Rhabdomyolysis Active buspirone 7.5 mg tablet (buspirone) 7.5mg, oral, Every 8 Hours - PRN oral 1.0 8.0 h 09/15 Generalized anxiety disorder Active mirtazapine 15 mg tablet,disinte grating (mirtazapine) 15mg, oral, At Bedtime oral 1.0 09/19 Generalized anxiety disorder Active metoprolol tartrate 25 mg tablet (metoprolol tartrate) 0.5 tab=12.5mg, oral, Twice A Day oral 1.0 12.0 h 09/19 Essential (primary) hypertension Active Fiber (calcium polycarbophil) (calcium polycarbophil) 625 mg tablet (Fiber (calcium polycarbophil) (calcium polycarbophil) ) 1 tab, oral, Once A Day oral 1.0 1.0 d 09/19 Active buspirone 7.5 mg tablet (buspirone) 1 tab, oral, Twice A Day oral 1.0 12.0 h 09/19 Generalized anxiety disorder Active sodium chloride 0.9 % - parenteral solution (sodium chloride 0.9 %) 1 liter, intravenous, Once - One Time, run at 100ml/hr intraveno us 1.0 09/18 Active metoprolol tartrate 25 mg tablet (metoprolol tartrate) 12.5, oral, STAT - Immediately, high blood pressure oral 1.0 09/18 Active metoprolol tartrate 25 mg tablet (metoprolol tartrate) 12.5, oral, STAT - Immediately, high blood pressure oral 1.0 09/19 Active sodium chloride 0.9 % - parenteral solution (sodium chloride 0.9 %) 1 liter, intravenous, Once - One Time, run at 100ml/hr intraveno us 1.0 09/19 Active Vital Signs Date Vital Result Comment 09/01/2024 09:35 PM Body Height 67 [in_us] 09/01/2024 09:34 PM Temperature 98.1 [degF] Oxygen Saturation 95 % Respiratory Rate 18 /min Heart Rate 85 /min Blood Pressure Systolic 144 mm[Hg] Blood Pressure Diastolic 76 mm[Hg] 09/02/2024 01:48 AM Temperature 97.6 [degF] Oxygen Saturation 96 % Respiratory Rate 20 /min Heart Rate 85 /min Blood Pressure Systolic 119 mm[Hg] Blood Pressure Diastolic 60 mm[Hg] 09/02/2024 09:13 AM Temperature 98.1 [degF] Oxygen Saturation 93 % Respiratory Rate 18 /min Heart Rate 95 /min Blood Pressure Systolic 152 mm[Hg] Blood Pressure Diastolic 78 mm[Hg] 09/02/2024 11:04 PM Temperature 98.2 [degF] Oxygen Saturation 94 % Respiratory Rate 18 /min Heart Rate 96 /min Blood Pressure Systolic 150 mm[Hg] Blood Pressure Diastolic 75 mm[Hg] 09/03/2024 04:48 AM Temperature 98 [degF] Oxygen Saturation 96 % Respiratory Rate 18 /min Heart Rate 84 /min Blood Pressure Systolic 146 mm[Hg] Blood Pressure Diastolic 74 mm[Hg] 09/03/2024 09:33 PM Temperature 98.3 [degF] Oxygen Saturation 98 % Respiratory Rate 16 /min Heart Rate 74 /min Blood Pressure Systolic 153 mm[Hg] Blood Pressure Diastolic 82 mm[Hg] 09/04/2024 01:42 AM Temperature 98.1 [degF] Oxygen Saturation 94 % Respiratory Rate 18 /min Heart Rate 82 /min Blood Pressure Systolic 126 mm[Hg] Blood Pressure Diastolic 68 mm[Hg] 09/04/2024 08:29 AM Temperature 98.1 [degF] Oxygen Saturation 95 % Respiratory Rate 18 /min Heart Rate 101 /min Blood Pressure Systolic 114 mm[Hg] Blood Pressure Diastolic 75 mm[Hg] 09/04/2024 04:46 PM Temperature 98.2 [degF] Oxygen Saturation 97 % Respiratory Rate 16 /min Heart Rate 80 /min Blood Pressure Systolic 103 mm[Hg] Blood Pressure Diastolic 72 mm[Hg] 09/04/2024 02:25 PM Body Weight 266 [lb_av] Body Mass Index 41.66 kg/m2 09/05/2024 12:34 AM Temperature 98 [degF] Oxygen Saturation 97 % Respiratory Rate 18 /min Heart Rate 87 /min Blood Pressure Systolic 118 mm[Hg] Blood Pressure Diastolic 76 mm[Hg] 09/05/2024 09:23 AM Temperature 98 [degF] Oxygen Saturation 97 % Respiratory Rate 18 /min Heart Rate 82 /min Blood Pressure Systolic 124 mm[Hg] Blood Pressure Diastolic 74 mm[Hg] 09/06/2024 09:29 AM Temperature 98 [degF] Oxygen Saturation 97 % Respiratory Rate 18 /min Heart Rate 78 /min Blood Pressure Systolic 128 mm[Hg] Blood Pressure Diastolic 70 mm[Hg] 09/07/2024 10:28 AM Temperature 98.1 [degF] Oxygen Saturation 95 % Respiratory Rate 18 /min Heart Rate 84 /min Blood Pressure Systolic 109 mm[Hg] Blood Pressure Diastolic 63 mm[Hg] 09/08/2024 10:48 AM Temperature 98 [degF] Oxygen Saturation 97 % Respiratory Rate 18 /min Heart Rate 80 /min Blood Pressure Systolic 118 mm[Hg] Blood Pressure Diastolic 68 mm[Hg] 09/08/2024 09:39 PM Temperature 98.2 [degF] Oxygen Saturation 95 % Respiratory Rate 18 /min Heart Rate 72 /min Blood Pressure Systolic 151 mm[Hg] Blood Pressure Diastolic 76 mm[Hg] 09/08/2024 03:37 PM Body Weight 271 [lb_av] Body Mass Index 42.44 kg/m2 09/09/2024 08:00 AM Temperature 97.9 [degF] Oxygen Saturation 95 % Respiratory Rate 18 /min Heart Rate 65 /min Blood Pressure Systolic 154 mm[Hg] Blood Pressure Diastolic 70 mm[Hg] 09/09/2024 05:56 PM Temperature 98 [degF] Oxygen Saturation 96 % Respiratory Rate 18 /min Heart Rate 99 /min Blood Pressure Systolic 140 mm[Hg] Blood Pressure Diastolic 75 mm[Hg] 09/10/2024 12:45 AM Temperature 98.2 [degF] Oxygen Saturation 97 % Respiratory Rate 18 /min Heart Rate 93 /min Blood Pressure Systolic 106 mm[Hg] Blood Pressure Diastolic 75 mm[Hg] 09/10/2024 10:00 AM Temperature 98.2 [degF] Oxygen Saturation 99 % Respiratory Rate 18 /min Heart Rate 66 /min Blood Pressure Systolic 97 mm[Hg] Blood Pressure Diastolic 82 mm[Hg] 09/10/2024 09:35 PM Temperature 98 [degF] Oxygen Saturation 98 % Respiratory Rate 18 /min Heart Rate 65 /min Blood Pressure Systolic 106 mm[Hg] Blood Pressure Diastolic 68 mm[Hg] 09/11/2024 12:00 AM Temperature 98.2 [degF] Oxygen Saturation 98 % Respiratory Rate 18 /min Heart Rate 68 /min Blood Pressure Systolic 110 mm[Hg] Blood Pressure Diastolic 78 mm[Hg] 09/11/2024 08:50 AM Temperature 98 [degF] Oxygen Saturation 98 % Respiratory Rate 18 /min Heart Rate 73 /min Blood Pressure Systolic 114 mm[Hg] Blood Pressure Diastolic 75 mm[Hg] 09/11/2024 09:55 PM Temperature 98 [degF] Oxygen Saturation 97 % Respiratory Rate 18 /min Heart Rate 75 /min Blood Pressure Systolic 124 mm[Hg] Blood Pressure Diastolic 74 mm[Hg] 09/12/2024 01:18 AM Temperature 97.6 [degF] Oxygen Saturation 98 % Respiratory Rate 18 /min Heart Rate 90 /min Blood Pressure Systolic 99 mm[Hg] Blood Pressure Diastolic 50 mm[Hg] 09/12/2024 08:00 AM Temperature 98 [degF] Oxygen Saturation 95 % Respiratory Rate 18 /min Heart Rate 82 /min Blood Pressure Systolic 118 mm[Hg] Blood Pressure Diastolic 74 mm[Hg] 09/12/2024 06:37 PM Temperature 98.1 [degF] Oxygen Saturation 98 % Respiratory Rate 18 /min Heart Rate 86 /min Blood Pressure Systolic 110 mm[Hg] Blood Pressure Diastolic 74 mm[Hg] 09/13/2024 01:42 AM Temperature 98 [degF] Oxygen Saturation 97 % Respiratory Rate 18 /min Heart Rate 73 /min Blood Pressure Systolic 124 mm[Hg] Blood Pressure Diastolic 70 mm[Hg] 09/13/2024 11:13 AM Temperature 98.2 [degF] Oxygen Saturation 98 % Respiratory Rate 18 /min Heart Rate 72 /min Blood Pressure Systolic 109 mm[Hg] Blood Pressure Diastolic 70 mm[Hg] 09/14/2024 09:49 AM Temperature 98 [degF] Oxygen Saturation 97 % Respiratory Rate 16 /min Heart Rate 76 /min Blood Pressure Systolic 126 mm[Hg] Blood Pressure Diastolic 64 mm[Hg] 09/15/2024 01:33 AM Temperature 97.8 [degF] Oxygen Saturation 94 % Respiratory Rate 20 /min Heart Rate 94 /min Blood Pressure Systolic 138 mm[Hg] Blood Pressure Diastolic 85 mm[Hg] 09/16/2024 08:09 AM Temperature 97.8 [degF] Oxygen Saturation 98 % Respiratory Rate 18 /min Heart Rate 83 /min Blood Pressure Systolic 142 mm[Hg] Blood Pressure Diastolic 82 mm[Hg] 09/15/2024 06:33 PM Body Weight 274 [lb_av] Body Mass Index 42.91 kg/m2 09/17/2024 11:55 AM Temperature 98 [degF] Oxygen Saturation 97 % Respiratory Rate 18 /min Heart Rate 76 /min Blood Pressure Systolic 128 mm[Hg] Blood Pressure Diastolic 76 mm[Hg] 09/18/2024 08:21 AM Temperature 98.2 [degF] Oxygen Saturation 97 % Respiratory Rate 18 /min Heart Rate 96 /min Blood Pressure Systolic 140 mm[Hg] Blood Pressure Diastolic 80 mm[Hg] 09/18/2024 04:21 PM Blood Pressure Systolic 365 mm[Hg] Blood Pressure Diastolic 94 mm[Hg] Social History No smoking Hx information available Encounters Type CPT Code Date Location Provider Indication s encounter report 09/01/2024 02:40 PM Kurtis Ennis MD encounter report 09/01/2024 06:2 4 PM - 09/18/2024 04:41 PM Rio Ennis MD Advance Directives Directive Description Verification Date Supporting Document(s) Other Directive
--- OUTSIDE RECORDS SUMMARY | 2024-11-07 10:55 | XMS_ITS | CCD ---
Author Organization [facility] Inform ion Partnership [facility] Care Team Providers Care [place] Supervisor Name Role Phone August HANDKERCHIEF FOLDER Unavailable Unavailable August HANDKERCHIEF FOLDER Unavailable Unavailable August HANDKERCHIEF FOLDER Unavailable Unavailable Jaleesa Lara Unavailable [facility], [facility] Primary Care Provider MD Liyah Rosa Attending Provider [phone] Valdez Acosta MD Primary Care Provider [phone] Liyah Rosa Unavailable [phone] Valdez Acosta MD Primary Care Provider Valdez Acosta MD Primary Care Provider [phone] AICHHOLZ, HANDKERCHIEF FOLDER FRED Admitting Unavailable AICHHOLZ, HANDKERCHIEF FOLDER FRED Attending Unavailable AICHHOLZ, HANDKERCHIEF FOLDER FRED Primary Care Unavailable TAMLYN ., YAHAIRA Consulting Unavailable TAMLYN ., YAHAIRA Admitting Unavailable TAMLYN ., YAHAIRA Attending Unavailable AICHHOLZ, HANDKERCHIEF FOLDER FRED Primary Care Unavailable TAMLYN ., YAHAIRA Consulting Unavailable THEA LYNN Consulting Unavailable YASH CALLAHAN Consulting Unavailable AICHHOLZ, HANDKERCHIEF FOLDER FRED Admitting Unavailable AICHHOLZ, HANDKERCHIEF FOLDER FRED Attending Unavailable AICHHOLZ, HANDKERCHIEF FOLDER FRED Primary Care Unavailable AICHHOLZ, HANDKERCHIEF FOLDER FRED Consulting Unavailable AICHHOLZ, HANDKERCHIEF FOLDER FRED Admitting Unavailable AICHHOLZ, HANDKERCHIEF FOLDER FRED Attending Unavailable AICHHOLZ, HANDKERCHIEF FOLDER FRED Primary Care Unavailable AICHHOLZ, HANDKERCHIEF FOLDER FRED Consulting Unavailable DR TULIO BULL Admitting Unavailable MISC, DR ANTUNEZ Attending Unavailable AICHHOLZ, HANDKERCHIEF FOLDER FRED Primary Care Unavailable MISC, DR ANTUNEZ Consulting Unavailable Aichholz WASTE/MATERIALS EXCHANGE SPECIALIST, Fred Unavailable Maxim Lanza MD Primary Care Provider Valdez Acosta MD Primary Care Provider VINCE, JESSICA Referring Unavailable PARIS TOLEDO Attending Unavailable DAHBAR, MAZEN Primary Care Unavailable ELIAZAR VAZQUEZ Attending Unavailable DAHBAR, MAZEN Primary Care Unavailable LASHAUN VASQUEZ Attending Unavailable YOUNG, JESSICA Referring Unavailable DAHBAR, MAZEN Primary Care Unavailable YOUNG, JESSICA Referring Unavailable YOUNG, EJSSICA Attending Unavailable DAHBAR, MAZEN Primary Care Unavailable SARTHAK ESCOBAR Referring Unavailable DAHBAR, MAZEN Primary Care Unavailable , AUGUST L Primary Care Physician Unavailab le RICHMONDAugust Primary Care Unavailable Brooks, Eliazar T Referring Unavailable Brooks, Eliazar T Attending Unavailable Brooks, Eliazar T Admitting Unavailable NONE, XXXX Primary Care Physician Unavailab Keli Montanez Unavailable Unavailable Aichholz WASTE/MATERIALS EXCHANGE SPECIALIST, Fred Unavailable Myla BENITEZ, Maxim Primary Care Provider [phone] Sarah FIGUEROA, Sherrie Unavailable John SAFETY INSTRUCTION POLICE OFFICER.HANDKERCHIEF FOLDER, Elizabeth Lantigua Unavailable [phone] SHERRIE BOONE Attending Unavailabl e AICHVICKY, FRED Attending Unavailable HILLS, YAHAIRA D Referring [...] Attending Unavailable BROOKS, ELIAZAR T Referring Unavailable LIYAH INDERJIT Attending Unavailable AICHHOLZ, FRED Attending Unavailable LIYAH INDERJIT Attending Unavailable BROOKS, ELIAZAR T Referring Unavailable BROOKS, ELIAZAR T Attending Unavailable LIYAH, INDERJIT Attending Unavailable BROOKS, ELIAZAR T Referring Unavailable LIYAH, INDERJIT Attending Unavailable BROOKS, ELIAZAR T Referring Unavailable HILLS, YAHAIRA D Attending Unavailable AICHHOLZ, FRED Attending Unavailable Yasmani BENITEZ, Tripp Carbone Attending Provider [phone] BASIL FRED J Primary Care Unavailable KENROY PÉREZ Admitting Unavailable ONLY), [facility] (INPATIENT Consult ing Unavailable СЕРГЕЙ LYNCH Attending Unavailable MACIEJ, MUNIRA Attending Unavailable MACIEJ, MUNIRA Referring Unavailable AICHHOLZ, FRED J Primary Care Unavailable MACIEJ, MUNIRA Attending Unavailable MACIEJ, MUNIRA Referring Unavailable AICReyHOLLee, FRED J Primary Care Unavailable Aichholz SAFETY INSTRUCTION POLICE OFFICER-HANDKERCHIEF FOLDER, Fred J Primary Care Provider ADONAY CASTILLO Attending Unavailable AICHHOLZ, FRED J Referring Unavailable AICHHOLZ, FRED J Primary Care Unavailable PROVIDER, UNKNOWN Attending Unavailable PROVIDER, UNKNOWN Admitting Unavailable AICHHOLZ, FRED J Referring Unavailable AICHHOLZ, FRED J Primary Care Unavailable AICHHOLZ, FRED J Referring Unavailable AICHHOLZ, FRED J Primary Care Unavailable Aichholz SAFETY INSTRUCTION POLICE OFFICER-HANDKERCHIEF FOLDER, Fred J Primary [facility] Provider [facility] SAFETY INSTRUCTION POLICE OFFICER-HANDKERCHIEF FOLDER, Fred Tevin Primary Care Provider REGINA MATTHEWS Attending Unavailable BrooksEliazar Admitting Unavailable Brooks, Eliazar Carbone Attending Unavailable Brooks, Eliazar T Referring Unavailable Brooks, Eliazar T Admitting Unavailable Brooks, Eliazar Carbone Attending Unavailable Brooks, Eliazar T Referring Unavailable August Primary Care Unavailable REGINA MATTHEWS Attending Unavailable Alonzo Holguin MD Attending Provider MONIKAFRED PEARL Primary Care Unavailable MIRIAM CHURCH Consulting Unavailable SHEILA JUNG Admitting Unavailable JULIO FERNANDEZ Attending Unavailable JAIR ESPINAL Consulting Unavailable [facility], INCDread Consulti ng Unavailable CARDIOLOGY, [facility] Consulting Unavailable SKYE LARA Consulting Unavailab Alonzo Moore Attending Unavailable Alonzo Holguin Admitting Unavailable Tripp Gruber Attending Unavailable Tripp Gruber Admitting Unavailable Allergies Allergy Classification Reported Allergen(s) Allergy Type Date of Onset Reaction(s) Facility (1 source) -No Environmental Allergies Allergy to substance [facility] Work Phone: (2 sources) Acetaminophen / HYDROcodone; Translations: [Vicodin] Drug Allergy [facility] Repository (2 sources) Penicillins; Translations: [penicillins] Propensity to adverse reactions (disorder) [facility] Medications Current Medications Medication Drug Class(es) Dates Sig (Normalized) Sig (Original) acetaminophen 1000 mg oral tablet (20 sources) Start: 06-30-2016 take 1000 mg by mouth every six hours as needed for pain Tylenol 1,000 mg, Oral, q6hr, PRN as needed for pain Start Date: 06/30/16 Status: Ordered take 2 tablets by mo [facility] every six hours as needed for pain [...] hours as needed for shoulder surgical pain., [employer] #72, 167.7, cm, 02/05/24 11:09:00 EDT, Height/Length Dosing, 131.3, kg, 02/05/24 11:09:00 EDT, Weight Dosing Start Date: 02/06/24 Status: Ordered Start: 02-06-2024 End: 04-15-2024 Percocet 5-325 MG tablet See Instructions, 40 tab(s), Refill(s) 0, Take one to two oral every 4 hours as needed for shoulder surgical pain., [employer] #72, 167.7, cm, 02/05/24 11:09:00 EDT, Height/Length Dosing, 131.3, kg, 02/05/24 11:09:00 EDT, Weight Dosing 02/06/2024 04/15/2024 Discontinued (Therapy completed) [id number] 200 actuat albuterol 0.09 mg/actuat metered dose [...] solution (1 source) Anticholinergic, beta2-Adrenergic Agonist Start: take 3 mL by inhalation every six hours as needed for wheezing and dyspnea amitriptyline hydrochloride 25 mg oral tablet (20 sources) Tricyclic Antidepressant Start: take 1 tablet by mouth at bedtime Amitriptyline 25 mg tablet Active 25 MG PO Bedtime September 05, 2021 12:00am Start: 07-15-2020 amitriptyline (ELAVIL) 50 mg tablet Take 25-50 mg qhs 07/15/2020 Active take 1 tablet by katharina every twelve hours Amitriptyline HCl 10 MG 1 tablet Orally twice a day Active Amitriptyline HC l Active Comment on above: Take 25-50 mg qhs amoxicillin 875 mg oral tablet (4 sources) Penicillin-class Antibacterial Start: 04-14-20 End: 04-27-20 24 take 1 tablet by mouth in the [...] 07/06/2023 Active ARIPiprazole 10 mg oral tablet (14 sources) Atypical Antipsychotic Start: 07-07-2024 End: 08-06-2024 [...] mouth Daily 30 tablet 1 05/18/2024 Active atorvastatin 40 mg oral tablet (20 sources) HMG-CoA Reductase Inhibitor Start: 11-01-2020 End: 07-10-2023 take 1 tablet by mouth at bedtime Atorvastatin 40 mg tablet Active 40 MG PO Bedtime September 05, 2021 12:00am Atorvastatin Jadon cium Active Comment on above: Take 1 tablet by katharina th once daily. Take 1 tablet by katharina th once daily benzonatate 100 mg oral capsule (1 source) Non-narcotic Antitussive Start: End: take 1 capsule by mouth three times [...] rectal suppository (1 source) Stimulant Laxative Start: brompheniramine maleate 0.4 mg/ml / dextromethorphan hydrobromide 2 mg/ml / pseudoephedrine hydrochloride 6 mg/ml oral solution (1 source) alpha-Adrenergic Agonist, Uncompetitive W-vxogwg-K-aspartate Receptor Antagonist, Sigma-1 Agonist Start: End: take 10 mL by mouth every eight hours for cough brompheniramine-pse udoephedrine-DM 30-2-10 MG/5ML syrup Indications: Acute cough Take 10 mL by mouth every 8 (eight) hours if needed for congestion or cough for up to 7 days 210 mL 04/15/2024 04/22/2024 Active 120 actuat budesonide 0.16 mg/actuat / formoterol fumarate 0.0048 mg/actuat / glycopyrrolate 0.009 mg/actuat metered dose inhaler (14 sources) Corticosteroid, beta2-Adrenergic Agonist Start: End: take 2 puff(s) by mouth in the morning Budeson-Glycopyrrol -Formoterol (Breztri Aerosphere) 160-9-4.8 MCG/ACT aerosol Indications: Chronic bronchitis, unspecified chronic bronchitis type (CMS/HCC) Inhale 2 puffs in the morning and 2 puffs before bedtime. Rinse mouth after use. 3 g 1 12/02/2023 03/01/2024 Active buPROPion hydrochloride 75 mg oral tablet (1 source) Aminoketone Start: take 1 tablet by mouth once daily Wellbutrin 75 mg Tab 75 mg = 1 tab(s), Oral, Daily Start Date: 06/30/16 Status: Ordered busPIRone hydrochloride 7.5 mg oral tablet (20 sources) Start: End: take 1 tablet by mouth every eight [...] 09-19-2024 cetirizine hydrochloride 10 mg oral tablet (13 sources) Histamine-1 Receptor Antagonist Start: 06-17-2024 End: [...] Ordered docusate sodium 50 mg / sennosides, snf 8.6 mg oral tablet (5 sources) Start: [...] 90 tablet 1 06/05/2023 Active Estrogens, Conjugated (NURSING HOME) / medroxyPROGESTERone (1 source) Progestin, Estrogen Start: 06-30-2016 FLUoxetine 20 mg oral capsule (14 sources) Serotonin Reuptake Inhibitor Start: 09-05-2021 take 1 capsule by mouth once daily Fluoxetine 20 mg capsule Active 20 MG PO Daily September 05, 2021 12:00am Comment on above: Daily fluticasone propionate 0.05 [...] take 500 mg intravenously every twelve hours lisinopril 10 mg oral tablet (20 sources) Angiotensin Converting Enzyme Inhibitor Start: 11-01-2020 End: 07-10-2023 take 1 tablet by mouth once daily Lisinopril 10 mg tablet Active 10 MG PO Daily September 05, 2021 12:00am Lisinopril Activ e Comment on above: Take 1 tablet by katharina th once daily. Take 1 tablet by katharina th once daily 50 ml magnesium sulfate 40 m g/ml [...] mirtazapine 15 mg disintegra ting oral tablet (13 sources) Start: 09-24-2024 Start: 09-21-2024 End: 09-24-2024 [...] Status: Ordered nystatin 100 unt/mg topical powder (13 sources) Polyene Antifungal Start: 08-23-2024 End: 08-23-2025 nystatin (Mycostatin) 267979 UNIT/GM powder Indications: Yeast dermatitis Apply topically 2 (two) times a day 60 g 1 08/23/2024 08/23/2025 Active Start: 03-05-2024 End: 03-20-2024 nystatin (Mycostatin) [id number] UNIT/GM powder Indications: Candidiasis of skin Apply topically 2 (two) times a day for 15 days Apply to affected areas 60 g 1 03/05/2024 03/20/2024 Active End: 03-05-2024 nystatin (Mycostatin) [id number] UNIT/GM powder Apply topically 2 (two) times a day 03/05/2024 Discontinued (Reorder) 10 ml ocrelizumab 30 mg/ml injection (20 sources) Start: 09-05-2021 Ocrelizumab (O crevus) 30 mg/mL Solution Active 600 MG IV EVERY 6 MONTHS September 05, 2021 12:00am Comment on above: 10 mL. ocrelizumab (OCREVUS [...] tablet (12 sources) Cholinergic Muscarinic Antagonist Start: End: take [...] mg 24 hr tablet polyethylene glycol 3350 21003 mg powder for oral solution (1 source) [...] Start: 06-14-2018 End: 06-14-2018 TRAZODONE 50 mg [facility] - 06/14/2018 Provider: Start: 05-30-2017 End: 05-30-2017 TRAZODONE 50 mg [facility]18 - 05/30/2017 Provider: vitamin B12 (12 sources) Vitamin B12 Start: 02-05-2024 take 2500 ug under the tongue once daily Vitamin B12 2,500 mcg, SubLingual, Daily, Refills(s) 0, Prophylaxis Start Date: 02/05/24 Status: Ordered take 1 tablet by mouth once dot y cyanocobalamin (VITAMIN B-12) 1,000 mcg tab Take 1,000 mcg by mouth once daily. Active Comment on above: Take 1,000 mcg by [facility] once daily. Vitamin D (2 sources) Start: [...] Comment on above: Take 1 tablet by [facility] once daily. betamethasone 3 mg/ml / betamethasone acetate 3 mg/ml injectable suspension (4 sources) Corticosteroid Start: 04-27-2024 End: 04-27-2024 betamethasone acetate-betamethas one sodium phosphate (Celestone) injection 12 mg Start: [...] Provider: Start: 06-30-2016 take 2 tablets by [facility] twice daily as needed for [...] injection (1 source) Histamine-2 Receptor Antagonist Start: 09-20-19 25 End: 09-24-19 25 1 ml heparin sodium, porcine 5000 unt/ml injection (1 source) Unfractionated Heparin, Anti-coagulant Start: 09-21-19 End: 09-23-19 meloxicam 15 mg oral tablet (9 sources) Nonsteroidal Anti-inflammatory Drug Start: 05-01-20 23 End: 11-26-19 24 take 1 tablet by mouth once daily in the morning meloxicam (MOBIC) 15 mg tablet Take 15 mg by mouth every morning. 0 05/01/2023 11/26/2023 Discontinued Comment on above: Take 15 mg by mouth every morning. naproxen 500 mg oral tablet (20 sources) Nonsteroidal Anti-inflammatory Drug Start: 06-30-19 17 End: 06-14-19 19 Naproxen 500 MG OR TABS 06/14/2018 - [...] nutritional; endocrine; and metabolic disorders (11 sources) Body mass index 40+ - severely obese; Translations: [Body mass index (BMI) 45.0-49.9, adult] Onset: 06-25-2024 06-25-2024 Chronic Other nutritional; endocrine; and metabolic disorders (13 sources) Obesity caused by energy imbalance; Translations: [...] Value Interpretation Reference Range Facility Urine Cultureon 10-17-2024 Bacteria identified Cx Nom (U) ORGANISM: Proteus mirabilis (O:PROMIR) [place] Count >100,000 Aerobic ROSE Charge (NMIC56) ---- [...] <2 Piperacillin/Tazobact am S <8 Tobramycin S 4 Trimethoprim/Sulfamet hoxazole S <0.5 S = SUSCEPTIBLE [...] RESISTANT TO ALL B-LACTAM DRUGS. PERFORMED BY: [place] [address] PATHOLOGIST [employer] FORMER ADILENE GAMINO M.D. Normal [facility] Comment on above: Performed By: #### C UU #### [address] Ambulatory Visit Summaryon 0 10-09-2024 Ambulatory Visit [...] for choosing us for your care. Normal [facility] BASIC METABOLIC PANELon 05-1 Anion gap [Moles/Vol] 11 mmol/L Normal 5-15 [facility] Comment on above: Performed By: #### P INR #### [facility] ([facility]) [address] [place] [address] VIR Calcium [Mass/Vol] 8.8 mg/dL Normal 8.5-10.5 [facility] Comment on above: Performed By: #### P INR #### [facility] ([facility]) [address] [place] [address] VIR Chloride [Moles/Vol] 106 mmol/L Normal 98-109 [facility] Comment on above: Performed By: #### P INR #### [facility] ([facility]) [address] [place] [address] VIR CO2 [Moles/Vol] 23 mmol/L Normal 22-32 [facility] Comment on above: Performed By: #### P INR #### [facility] ([facility]) [address] [place] [address] VIR Creatinine [Mass/Vol] 0.74 mg/dL Normal 0.40-1.[address] [facility] Comment on above: Result Comment: METH OD TRACEABLE TO IDMS STANDARD Performed By: #### P INR #### [facility] ([facility]) [address] [place] [address] VIR EGFR (CKD-EPI) NON-RACE DEPENDENT >^90 Normal >=60 [facility] Comment on above: Result Comment: Repo rted eGFR is based on the CKD-EPI 2020 equation that does not use a race coefficient. Performed By: #### P INR #### [facility] ([facility]) [address] [place] [address] VIR Glucose [Mass/Vol] 94 mg/dL Normal 65-99 [facility] Comment on above: Performed By: #### P INR #### [facility] ([facility]) [address] [place] [address] VIR Potassium [Moles/Vol] 4.4 mmol/L Normal 3.5-5.[address] [facility] Comment on above: Performed By: #### P INR #### [facility] ([facility]) [address] [place] [address] VIR Sodium [Moles/Vol] 140 mmol/L Normal 134-146 [facility] Comment on above: Performed By: #### P INR #### [facility] ([facility]) [address] [place] [address] VIR Urea nitrogen [Mass/Vol] 26 mg/dL High 5-23 [facility] Comment on above: Performed By: #### P INR #### [facility] ([facility]) [address] [place] [address] VIR Basic Metabolic Panelon 09-17 Anion gap [Moles/Vol] 11 mmol/L 5 - 15 mmol/L [facility] Calcium [Mass/Vol] 8.8 mg/dL 8.5 - 10. 5 mg/dL [facility] Chloride [Moles/Vol] 106 mmol/L 98 - 10 9 mmol/L [facility] CO2 [Moles/Vol] 23 mmol/L 22 - 32 mmol/L [facility] Creatinine [Mass/Vol] 0.74 mg/dL 0.40 - 1.00 mg/dL [facility] EGFR Non-Race Dependent - PINF P [facility] Glucose [Mass/Vol] 94 mg/dL 65 - 99 mg/dL [facility] Interpretation and review of laboratory results Abnormal [facility] Potassium [Moles/Vol] 4.4 mmol/L 3.5 - 5.0 mmol/L [facility] Sodium [Moles/Vol] 140 mmol/L 134 - 146 mmol/L [facility] Urea nitrogen [Mass/Vol] 26 mg/dL High 5 - 23 mg/dL [facility] CBC WITH AUTO DIFFERENTIALon 09-28-2024 BASOPHILS ABSOLUTE COUNT (10*3/UL) BY AUTOMATED COUNT 0.0 10*3/uL Normal 0.0-0.2 [facility] Comment on above: Result Comment: This is an appended report. These results have been appended to a previously preliminary verified report. Performed By: #### P INR #### [facility] ([facility]) [address] [place] [address] VIR BASOPHILS RELATIVE PERCENT BY AUTOMATED COUNT 0.1 % Normal [facility] Comment on above: Result Comment: This is an appended report. These results have been appended to a previously preliminary verified report. Performed By: #### P INR #### [facility] ([facility]) [address] [place] [address] VIR CELLAVISION DIFFERENTIAL TYPE AUTOMATED DIFFERENTIAL Normal [facility] Comment on above: Result Comment: This is an appended report. These results have been appended to a previously preliminary verified report. Performed By: #### P INR #### [facility] ([facility]) [address] [place] [address] VIR Eosinophils (Bld) [#/Vol] 0.0 10*3/uL Normal 0.0-0.4 [facility] Comment on above: Result Comment: This is an appended report. These results have been appended to a previously preliminary verified report. Performed By: #### P INR #### [facility] ([facility]) [address] [place] [address] VIR EOSINOPHILS RELATIVE PERCENT BY AUTOMATED COUNT 0.1 % Normal [facility] Comment on above: Result Comment: This is an appended report. These results have been appended to a previously preliminary verified report. Performed By: #### P INR #### [facility] ([facility]) [address] [place] [address] VIR Erythrocyte distribution width (RBC) [Ratio] 16.4 % High 11.5-15 [facility] Comment on above: Performed By: #### P INR #### [facility] ([facility]) [address] [place] [address] VIR Hematocrit (Bld) [Volume fraction] 35.5 % Normal 35-47 [facility] Comment on above: Performed By: #### P INR #### [facility] ([facility]) [address] [place] [address] VIR Hemoglobin (Bld) [Mass/Vol] 11.5 g/dL Low 11.7-15.5 [facility] Comment on above: Performed By: #### P INR #### [facility] ([facility]) [address] [place] [address] VIR LYMPHOCYTES ABSOLUTE COUNT (10*3/UL) BY AUTOMATED COUNT 1.3 10*3/uL Normal 1.0-3.5 [facility] Comment on above: Result Comment: This is an appended report. These results have been appended to a previously preliminary verified report. Performed By: #### P INR #### [facility] ([facility]) [address] [address] VIR LYMPHOCYTES RELATIVE PERCENT BY AUTOMATED COUNT 8.3 % Normal [facility] Comment on above: Result Comment: This is an appended report. These results have been appended to a previously preliminary verified report. Performed By: #### P INR #### [facility] ([facility]) [address] [place] [address] VIR MCH (RBC) [Entitic mass] 27.0 pg Normal 27-34 [facility] Comment on above: Performed By: #### P INR #### [facility] ([facility]) [address] [place] [address] VIR MCHC (RBC) [Mass/Vol] 32.5 g/dL Normal 32-[address] [facility] Comment on above: Performed By: #### P INR #### [facility] ([facility]) [address] [place] [address] VIR MCV (RBC) [Entitic vol] 83 fL Normal 80-100 [facility] Comment on above: Performed By: #### P INR #### [facility] ([facility]) [address] [place] [address] VIR MONOCYTES ABSOLUTE COUNT (10*3/UL) BY AUTOMATED COUNT 1.8 10*3/uL High 0.0-0.9 [facility] Comment on above: Result Comment: This is an appended report. These results have been appended to a previously preliminary verified report. Performed By: #### P INR #### [facility] ([facility]) [address] [place] [address] VIR MONOCYTES RELATIVE PERCENT BY AUTOMATED COUNT 11.3 % Normal [facility] Comment on above: Result Comment: This is an appended report. These results have been appended to a previously preliminary verified report. Performed By: #### P INR #### [facility] ([facility]) [address] [address] VIR NEUTROPHILS ABSOLUTE COUNT BY AUTOMATED COUNT 12.4 10*3/uL High 1.5-6.6 [facility] Comment on above: Result Comment: This is an appended report. These results have been appended to a previously preliminary verified report. Performed By: #### P INR #### [facility] ([facility]) [address] [address] [place] [address] VIR NEUTROPHILS RELATIVE PERCENT BY AUTOMATED COUNT 80.2 % Normal [facility] Comment on above: Result Comment: This is an appended report. These results have been appended to a previously preliminary verified report. Performed By: #### P INR #### [facility] ([facility]) [address] [address] VIR Platelet mean volume (Bld) [Entitic vol] 10.7 fL Normal 7-12 [facility] Comment on above: Performed By: #### P INR #### [facility] ([facility]) [address] [address] VIR Platelets (Bld) [#/Vol] 115 10*3/uL Low 150-450 [facility] Comment on above: Performed By: #### P INR #### [facility] ([facility]) [address] [place] [address] VIR RBC COUNT 4.27 X10E12/L Normal 3.8-5.2 [facility] Comment on above: Performed By: #### P INR #### [facility] ([facility]) [address] [place] [address] VIR WBC (Bld) [#/Vol] 15.5 10*3/uL High 4-11 [facility] Comment on above: Performed By: #### P INR #### [facility] ([facility]) [address] [place] [address] VIR CBC auto differentialon 09-17 Basophils (Bld) [#/Vol] 0 10*3/uL 0.0 - 0.2 10*3/uL [facility] Basophils/100 WBC (Bld) 0.1 % [facility] Differential cell count method Nom (Bld) AUTOMATED DIFFERENTIAL [facility] Eosinophils (Bld) [#/Vol] 0 10*3/uL 0.0 - 0.4 10*3/uL [facility] Eosinophils/100 WBC (Bld) 0.1 % [facility] Erythrocyte distribution width (RBC) [Ratio] 16.4 % High 11.5 - 15 % [facility] Hematocrit (Bld) [Volume fraction] 35.5 % 35 - 47 % [facility] Hemoglobin (Bld) [Mass/Vol] 11.5 g/dL Low 11.7 - 15.5 g/dL [facility] Interpretation and review of laboratory results Abnormal [facility] Lymphocytes (Bld) [#/Vol] 1.3 10*3/uL 1.0 - 3.5 10*3/uL [facility] Lymphocytes/100 WBC (Bld) 8.3 % [facility] MCH (RBC) [Entitic mass] 27 pg 27 - 34 pg [facility] MCHC (RBC) [Mass/Vol] 32.5 g/dL 32 - 3 6 g/dL [facility] MCV (RBC) [Entitic vol] 83 fL 80 - 100 fL [facility] Monocytes (Bld) [#/Vol] 1.8 10*3/uL High 0.0 - 0.9 10*3/uL [facility] Monocytes/100 WBC (Bld) 11.3 % [facility] Neutrophils (Bld) [#/Vol] 12.4 10*3/uL High 1.5 - 6.6 10*3/uL [facility] Neutrophils/100 WBC (Bld) 80.2 % [facility] Platelet mean volume (Bld) [Entitic vol] 10.7 fL 7 - 12 fL [facility] Platelets (Bld) [#/Vol] 115 10*3/uL Low [facility] RBC (Bld) [#/Vol] 4.27 10*6/uL [facility] dica [facility] WBC LM Ql (Sput) 15.[address] [facility] [place] SWALLOW MOTILITY FUNCTION on 09-28-2024 [...] for additional details and recommendations. Approved by Res Troy Shannon MD on 09/28/2024 3:00 PM I, Jayla Arrooy MD have personally reviewed the image(s) and agree with and/or edited the report Finalized by Jayla Arroyo MD on 09/28/2024 3:08 PM Normal [facility] IONIZED CALCIUMon 09-28-2024 IONIZED CALCIUM - ICAN 4.3 mg/dL Low 4.5-5.3 Pr [facility] Comment on above: Performed By: #### P INR #### [facility] ([facility] [address] [place] [address] VIR Ionized calciumon 09-28-2024 Calcium.ionized ISE [Moles/Vol] 4.3 mg/dL Low 4.5 - 5.3 mg/dL [facility] Interpretation and review of laboratory results Abnormal [facility] MAGNESIUMon 09-28-2024 Magnesium [Mass/Vol] 1.8 mg/dL Normal 1.8-2.6 [facility] Comment on above: Performed By: #### P INR #### [facility] ([facility]) [address] [place] [address] VIR Magnesiumon 09-28-2024 Magnesium [Mass/Vol] 1.8 mg/dL 1.8 - 2 .6 mg/dL [facility] No Panel Informationon 09-28 Interpretation and review of laboratory results Normal [facility] PHOSPHORUSon 09-28-2024 Phosphate [Mass/Vol] 2.6 mg/dL Normal 2.4-4.9 [facility] Comment on above: Performed By: #### P INR #### [facility] ([facility]) [address] [place] [address] VIR Phosphoruson 09-28-2024 Phosphate [Mass/Vol] 2.6 mg/dL 2.4 - 4 .9 mg/dL [facility] RF videography Hypopharynx a nd Esophagus Viewson 09-28-2024 SECTRAPACS [facility] Radiology Study observation (narrative) [facility] RF videography Hypopharynx a nd Esophagus ViewsOrdered By: Jayla Arroyo on 09-28-2024 [facility] Work Phone: BASIC METABOLIC PANELon 09-17 Anion gap [Moles/Vol] 10 mmol/L Normal 5-[address] [facility] Comment on above: Performed By: #### P INR #### [facility] ([facility]) [address] [place] [address] VIR Calcium [Mass/Vol] 9.0 mg/dL Normal 8.5-10.5 [facility] Comment on above: Performed By: #### P INR #### [facility] ([facility]) [address] [place] [address] VIR Chloride [Moles/Vol] 109 mmol/L Normal 98-109 [facility] Comment on above: Performed By: #### P INR #### [facility] ([facility]) [address] [place] [address] VIR CO2 [Moles/Vol] 25 mmol/L Normal 22-32 [facility] Comment on above: Performed By: #### P INR #### [facility] ([facility]) [address] [place] [address] VIR Creatinine [Mass/Vol] 0.74 mg/dL Normal 0.40-1.[address] [facility] Comment on above: Result Comment: METH OD TRACEABLE TO IDMS STANDARD Performed By: #### P INR #### [facility] ([facility]) [address] [place] [address] VIR EGFR (CKD-EPI) NON-RACE DEPENDENT >^90 Normal >=60 [facility] Comment on above: Result Comment: Repo rted eGFR is based on the CKD-EPI 2020 equation that does not use a race coefficient. Performed By: #### P INR #### [facility] ([facility]) [address] [place] [address] VIR Glucose [Mass/Vol] 101 mg/dL High 65-99 [facility] Comment on above: Performed By: #### P INR #### [facility] ([facility]) [address] [place] [address] VIR Potassium [Moles/Vol] 4.6 mmol/L Normal 3.5-5.[address] [facility] Comment on above: Performed By: #### P INR #### [facility] ([facility]) [address] [place] [address] VIR Sodium [Moles/Vol] 144 mmol/L Normal 134-146 [facility] Comment on above: Performed By: #### P INR #### [facility] ([facility]) [address] [place] [address] VIR Urea nitrogen [Mass/Vol] 27 mg/dL High 5-23 [facility] Comment on above: Performed By: #### P INR #### [facility] ([facility]) [address] [place] [address] VIR Basic Metabolic Panelon 09-17 Anion gap [Moles/Vol] 10 mmol/L 5 - 15 mmol/L [facility] Calcium [Mass/Vol] 9 mg/dL 8.5 - 10. 5 mg/dL [facility] Chloride [Moles/Vol] 109 mmol/L 98 - 10 9 mmol/L [facility] CO2 [Moles/Vol] 25 mmol/L 22 - 32 mmol/L [facility] Creatinine [Mass/Vol] 0.74 mg/dL 0.40 - 1.00 mg/dL [facility] EGFR Non-Race Dependent - PINF P [facility] Glucose [Mass/Vol] 101 mg/dL High 65 - 99 mg/dL [facility] Interpretation and review of laboratory results Abnormal [facility] Potassium [Moles/Vol] 4.6 mmol/L 3.5 - 5.0 mmol/L [facility] Sodium [Moles/Vol] 144 mmol/L 134 - 146 mmol/L [facility] Urea nitrogen [Mass/Vol] 27 mg/dL High 5 - 23 mg/dL [facility] CBC WITH AUTO DIFFERENTIALon 09-27-2024 CELLAVISION DIFFERENTIAL TYPE CELLAVISION DIFFERENTIAL Normal [facility] Comment on above: Result Comment: This is an appended report. These results have been appended to a previously preliminary verified report. Performed By: #### U LUDMILA #### [facility] ([facility]) [address] [place] [address] VIR CELLAVISION LYMPHOCYTES ABSOLUTE COUNT (10*3/UL) BY MANUAL COUNT 0.8 10*3/uL Low 1.0-3.5 [facility] Comment on above: Result Comment: This is an appended report. These results have been appended to a previously preliminary verified report. Performed By: #### U LUDMILA #### [facility] ([facility]) [address] [place] [address] VIR CELLAVISION LYMPHOCYTES RELATIVE PERCENT BY MANUAL COUNT 5 % Normal [facility] Comment on above: Result Comment: This is an appended report. These results have been appended to a previously preliminary verified report. Performed By: #### U LUDMILA #### [facility] ([facility]) [address] [place] [address] VIR CELLAVISION MONOCYTES ABSOLUTE COUNT (10*3/UL) IN BLOOD BY MANUAL COUNT 2.2 10*3/uL High 0.0-0.9 [facility] Comment on above: Result Comment: This is an appended report. These results have been appended to a previously preliminary verified report. Performed By: #### U LUDMILA #### [facility] ([facility]) [address] [place] [address] VIR CELLAVISION MONOCYTES RELATIVE PERCENT BY MANUAL COUNT 13 % Normal [facility] Comment on above: Result Comment: This is an appended report. These results have been appended to a previously preliminary verified report. Performed By: #### U LUDMILA #### [facility] ([facility]) [address] [place] [address] VIR CELLAVISION MYELOCYTE RELATIVE PERCENT BY MANUAL COUNT 1 % Normal [facility] Comment on above: Result Comment: This is an appended report. These results have been appended to a previously preliminary verified report. Performed By: #### U LUDMILA #### [facility] ([facility]) [address] [place] [address] VIR CELLAVISION NEUTROPHILS ABSOLUTE COUNT BY MANUAL COUNT 14.0 10*3/uL High 1.5-6.6 [facility] Comment on above: Result Comment: This is an appended report. These results have been appended to a previously preliminary verified report. Performed By: #### U LUDMILA #### [facility] ([facility]) [address] [place] [address] VIR CELLAVISION NEUTROPHILS RELATIVE PERCENT BY MANUAL COUNT 82 % Normal [facility] Comment on above: Result Comment: This is an appended report. These results have been appended to a previously preliminary verified report. Performed By: #### U LUDMILA #### [facility] ([facility]) [address] [place] [address] VIR Erythrocyte distribution width (RBC) [Ratio] 16.6 % High 11.5-15 [facility] Comment on above: Performed By: #### U LUDMILA #### [facility] ([facility]) [address] [place] [address] VIR Hematocrit (Bld) [Volume fraction] 34.3 % Low 35-47 [facility] Comment on above: Performed By: #### U LUDMILA #### [facility] ([facility]) [address] [place] [address] VIR Hemoglobin (Bld) [Mass/Vol] 11.3 g/dL Low 11.7-15.5 [facility] Comment on above: Performed By: #### U LUDMILA #### [facility] ([facility]) [address] [place] [address] VIR MCH (RBC) [Entitic mass] 27.3 pg Normal 27-34 [facility] Comment on above: Performed By: #### U LUDMILA #### [facility] ([facility]) [address] [place] [address] VIR MCHC (RBC) [Mass/Vol] 33.0 g/dL Normal 32-36 [facility] Comment on above: Performed By: #### U LUDMILA #### [facility] ([facility]) [address] [place] [address] VIR MCV (RBC) [Entitic vol] 83 fL Normal 80-100 P [facility] Comment on above: Performed By: #### U LUDMILA #### [facility] ([facility]) [address] [place] [address] VIR Platelet mean volume (Bld) [Entitic vol] 11.6 fL Normal 7-12 [facility] Comment on above: Performed By: #### U LUDMILA #### [facility] ([facility]) [address] [place] [address] VIR Platelets (Bld) [#/Vol] 116 10*3/uL Low 150-450 [facility] Comment on above: Performed By: #### U LUDMILA #### [facility] ([facility]) [address] [place] [address] VIR RBC COUNT 4.14 X10E12/L Normal 3.8-5.2 [facility] Comment on above: Performed By: #### U LUDMILA #### [facility] ([facility]) [address] [place] [address] VIR WBC (Bld) [#/Vol] 17.1 10*3/uL High 4-11 [facility] Comment on above: Performed By: #### U LUDMILA #### [facility] ([facility]) [address] [place] [address] VIR CBC auto differentialon 05- Differential cell count method Nom (Bld) CELLAVISION DIFFERENTIAL [facility] Erythrocyte distribution width (RBC) [Ratio] 16.6 % High 11.5 - 15 % [facility] Hematocrit (Bld) [Volume fraction] 34.3 % Low 35 - 47 % [facility] Hemoglobin (Bld) [Mass/Vol] 11.3 g/dL Low 11.7 - 15.5 g/dL [facility] Interpretation and review of laboratory results Abnormal [facility] Lymphocytes (Bld) [#/Vol] 0.8 10*3/uL Low 1.0 - 3.5 10*3/uL [facility] MCH (RBC) [Entitic mass] 27.3 pg 27 - 34 pg [facility] MCHC (RBC) [Mass/Vol] 33 g/dL 32 - 3 6 g/dL [facility] MCV (RBC) [Entitic vol] 83 fL 80 - 100 fL [facility] Monocytes (Bld) [#/Vol] 2.2 10*3/uL High 0.0 - 0.9 10*3/uL [facility] Monocytes/100 WBC (Bld) 13 % [facility] Myelocytes/100 WBC (Bld) 1 % [facility] Neutrophils (Bld) [#/Vol] 14 10*3/uL High 1.5 - 6.6 10*3/uL [facility] Neutrophils/100 WBC (Bld) 82 % [facility] Platelet mean volume (Bld) [Entitic vol] 11.6 fL 7 - 12 fL [facility] Platelets (Bld) [#/Vol] 116 10*3/uL Low [facility] RBC (Bld) [#/Vol] 4.14 10*6/uL [facility] Variant lymphocytes/100 WBC (Bld) 5 % [facility] WBC LM Ql (Sput) 17.[address] [facility] IONIZED CALCIUMon 09-27-2024 IONIZED CALCIUM - ICAN 4.8 mg/dL Normal 4.5-5.3 Pr [facility] Comment on above: Performed By: #### U LUDMILA #### [facility] ([facility]) [address] [place] [address] VIR Ionized calciumon 09-27-2024 Calcium.ionized ISE [Moles/Vol] 4.8 mg/dL 4.5 - 5.3 mg/dL [facility] Interpretation and review of laboratory results Normal [facility] MAGNESIUMon 09-27-2024 Magnesium [Mass/Vol] 1.9 mg/dL Normal 1.8-2.6 [facility] Comment on above: Performed By: #### U LUDMILA #### [facility] ([facility]) [address] [place] [address] VIR Magnesiumon 09-27-2024 Magnesium [Mass/Vol] 1.9 mg/dL 1.8 - 2 .6 mg/dL [facility] No Panel Informationon 09-27 Interpretation and review of laboratory results Normal [facility] PHOSPHORUSon 09-27-2024 Phosphate [Mass/Vol] 2.8 mg/dL Normal 2.4-4.9 [facility] Comment on above: Performed By: #### U LUDMILA #### [facility] ([facility]) [address] [place] [address] VIR Phosphoruson 09-27-2024 Phosphate [Mass/Vol] 2.8 mg/dL 2.4 - 4 .9 mg/dL [facility] XR CHEST 1 VWon 09-27-2024 XR CHEST 1 VW XR CHEST 1 VW Single view chest History:evaluate for PNA Difficulty breathing, shortness of breath Comparison: 09/23/2024 Findings: Single portable view of the chest. Stable cardiomediastinal silhouette. No focal opacity, effusion or pneumothorax. Impression: No significant interval change or definitive acute process. Finalized by Eliazar Sterling MD on 09/27/2024 6:34 AM Normal [facility] XR Chest Single viewon 09-27 SECTRAPACS [facility] Radiology Study observation (narrative) [facility] XR Chest Single viewOrdered By: Eliazar Sterling on 09-27-2024 [facility] Work Phone: Bacteria identified Aer cx N om (Bld)Ordered By: Sheng Calderon on 09-26-2024 Bacteria identified Aer cx Nom (Unsp spec) NO GROWTH 5 DAYS [facility] BASIC METABOLIC PANELon 05-0 Anion gap [Moles/Vol] 10 mmol/L Normal 5-[address] [facility] Comment on above: Performed By: #### U LUDMILA #### [facility] ([facility]) [address] [place] [address] VIR Calcium [Mass/Vol] 8.6 mg/dL Normal 8.5-10.5 [facility] Comment on above: Performed By: #### U LUDMILA #### [facility] ([facility]) [address] [place] [address] VIR Chloride [Moles/Vol] 107 mmol/L Normal 98-109 [facility] Comment on above: Performed By: #### U LUDMILA #### [facility] ([facility]) [address] [place] [address] VIR CO2 [Moles/Vol] 24 mmol/L Normal 22-32 [facility] Comment on above: Performed By: #### U LUDMILA #### [facility] ([facility]) [address] [place] [address] VIR Creatinine [Mass/Vol] 0.80 mg/dL Normal 0.40-1.[address] [facility] Comment on above: Result Comment: METH OD TRACEABLE TO IDMS STANDARD Performed By: #### U LUDMILA #### [facility] ([facility]) [address] [place] [address] VIR GFR/1.73 sq M.predicted among non-blacks MDRD (S/P/Bld) [Vol rate/Area] 86 mL/min/{1.73_m2} Normal >=60 [facility] Comment on above: Result Comment: [facility] eGFR is based on the CKD-EPI 2020 equation that does not use a race coefficient. Performed By: #### U LUDMILA #### [facility] ([facility]) [address] [place] [address] VIR Glucose [Mass/Vol] 165 mg/dL High 65-99 [facility] Comment on above: Performed By: #### U LUDMILA #### [facility] ([facility]) [address] [place] [address] VIR Potassium [Moles/Vol] 4.0 mmol/L Normal 3.5-5.[address] [facility] Comment on above: Performed By: #### U LUDMILA #### [facility] ([facility]) [address] [place] [address] VIR Sodium [Moles/Vol] 141 mmol/L Normal 134-146 [facility] Comment on above: Performed By: #### U LUDMILA #### [facility] ([facility]) [address] [place] [address] VIR Urea nitrogen [Mass/Vol] 24 mg/dL High 5-23 [facility] Comment on above: Performed By: #### U LUDMILA #### [facility] ([facility]) [address] [place] [address] VIR Basic Metabolic Panelon Anion gap [Moles/Vol] 10 mmol/L 5 - 15 mmol/L [facility] Calcium [Mass/Vol] 8.6 mg/dL 8.5 - 10. 5 mg/dL [facility] Chloride [Moles/Vol] 107 mmol/L 98 - 10 9 mmol/L [facility] CO2 [Moles/Vol] 24 mmol/L 22 - 32 mmol/L [facility] Creatinine [Mass/Vol] 0.8 mg/dL 0.40 - 1.00 mg/dL [facility] EGFR Non-Race Dependent 86 - PINF P [facility] Glucose [Mass/Vol] 165 mg/dL High 65 - 99 mg/dL [facility] Interpretation and review of laboratory results Abnormal [facility] Potassium [Moles/Vol] 4 mmol/L 3.5 - 5.0 mmol/L [facility] Sodium [Moles/Vol] 141 mmol/L 134 - 146 mmol/L [facility] Urea nitrogen [Mass/Vol] 24 mg/dL High 5 - 23 mg/dL [facility] CBC WITH AUTO DIFFERENTIALon 09-25-2024 CELLAVISION DIFFERENTIAL TYPE CELLAVISION DIFFERENTIAL Normal [facility] Comment on above: Result Comment: This is an appended report. These results have been appended to a previously preliminary verified report. Performed By: #### C PK #### [facility] ([facility]) [address] [place] [address] VIR CELLAVISION LYMPHOCYTES ABSOLUTE COUNT (10*3/UL) BY MANUAL COUNT 0.7 10*3/uL Low 1.0-3.5 [facility] Comment on above: Result Comment: This is an appended report. These results have been appended to a previously preliminary verified report. Performed By: #### C PK #### [facility] ([facility]) [address] [place] [address] VIR CELLAVISION LYMPHOCYTES RELATIVE PERCENT BY MANUAL COUNT 3 % Normal [facility] Comment on above: Result Comment: This is an appended report. These results have been appended to a previously preliminary verified report. Performed By: #### C PK #### [facility] ([facility]) [address] [place] [address] VIR CELLAVISION MONOCYTES ABSOLUTE COUNT (10*3/UL) IN BLOOD BY MANUAL COUNT 2.5 10*3/uL High 0.0-0.9 [facility] Comment on above: Result Comment: This is an appended report. These results have been appended to a previously preliminary verified report. Performed By: #### C PK #### [facility] ([facility]) [address] [place] [address] VIR CELLAVISION MONOCYTES RELATIVE PERCENT BY MANUAL COUNT 11 % Normal [facility] Comment on above: Result Comment: This is an appended report. These results have been appended to a previously preliminary verified report. Performed By: #### C PK #### [facility] ([facility]) [address] [place] [address] VIR CELLAVISION MYELOCYTE RELATIVE PERCENT BY MANUAL COUNT 1 % Normal [facility] Comment on above: Result Comment: This is an appended report. These results have been appended to a previously preliminary verified report. Performed By: #### C PK #### [facility] ([facility]) [address] [place] [address] VIR CELLAVISION NEUTROPHILS ABSOLUTE COUNT BY MANUAL COUNT 20.4 10*3/uL High 1.5-6.6 [facility] Comment on above: Result Comment: This is an appended report. These results have been appended to a previously preliminary verified report. Performed By: #### C PK #### [facility] ([facility]) [address] [place] [address] VIR CELLAVISION NEUTROPHILS RELATIVE PERCENT BY MANUAL COUNT 86 % Normal [facility] Comment on above: Result Comment: This is an appended report. These results have been appended to a previously preliminary verified report. Performed By: #### C PK #### [facility] ([facility]) [address] [place] [address] VIR CELLAVISION RBC MORPHOLOGY Normal Normal [facility] Comment on above: Result Comment: This is an appended report. These results have been appended to a previously preliminary verified report. Performed By: #### C PK #### [facility] ([facility]) [address] [place] [address] VIR CELLAVISION VACUOLATED NEUTROPHILS 1+ Normal [facility] Comment on above: Result Comment: This is an appended report. These results have been appended to a previously preliminary verified report. Performed By: #### C PK #### [facility] ([facility]) [address] [place] [address] VIR Erythrocyte distribution width (RBC) [Ratio] 15.8 % High 11.5-15 [facility] Comment on above: Performed By: #### C PK #### [facility] ([facility]) [address] [place] [address] VIR Hematocrit (Bld) [Volume fraction] 34.4 % Low 35-47 [facility] Comment on above: Performed By: #### C PK #### [facility] ([facility]) [address] [place] [address] VIR Hemoglobin (Bld) [Mass/Vol] 11.1 g/dL Low 11.7-15.5 [facility] Comment on above: Performed By: #### C PK #### [facility] ([facility]) [address] [place] [address] VIR MCH (RBC) [Entitic mass] 26.7 pg Low 27-34 [facility] Comment on above: Performed By: #### C PK #### [facility] ([facility]) [address] [place] [address] VIR MCHC (RBC) [Mass/Vol] 32.3 g/dL Normal 32-[address] [facility] Comment on above: Performed By: #### C PK #### [facility] ([facility]) [address] [place] [address] VIR MCV (RBC) [Entitic vol] 83 fL Normal 80-100 [facility] Comment on above: Performed By: #### C PK #### [facility] ([facility]) [address] [place] [address] VIR Platelet mean volume (Bld) [Entitic vol] 10.5 fL Normal 7-12 [facility] Comment on above: Performed By: #### C PK #### [facility] ([facility]) [address] [place] [address] VIR Platelets (Bld) [#/Vol] 120 10*3/uL Low 150-450 [facility] Comment on above: Performed By: #### C PK #### [facility] ([facility]) [address] [place] [address] VIR RBC COUNT 4.16 X10E12/L Normal 3.8-5.2 [facility] Comment on above: Performed By: #### C PK #### [facility] ([facility]) [address] [place] [address] VIR WBC (Bld) [#/Vol] 23.8 10*3/uL High 4-11 [facility] Comment on above: Performed By: #### C PK #### [facility] ([facility]) [address] [place] [address] VIR CBC auto differentialon 05-0 9-2025 Differential cell count method Nom (Bld) CELLAVISION DIFFERENTIAL [facility] Erythrocyte distribution width (RBC) [Ratio] 15.8 % High 11.5 - 15 % [facility] Hematocrit (Bld) [Volume fraction] 34.4 % Low 35 - 47 % [facility] Hemoglobin (Bld) [Mass/Vol] 11.1 g/dL Low 11.7 - 15.5 g/dL [facility] Interpretation and review of laboratory results Abnormal [facility] Lymphocytes (Bld) [#/Vol] 0.7 10*3/uL Low 1.0 - 3.5 10*3/uL [facility] MCH (RBC) [Entitic mass] 26.7 pg Low 27 - 34 pg [facility] MCHC (RBC) [Mass/Vol] 32.3 g/dL 32 - 3 6 g/dL [facility] MCV (RBC) [Entitic vol] 83 fL 80 - 100 fL [facility] Monocytes (Bld) [#/Vol] 2.5 10*3/uL High 0.0 - 0.9 10*3/uL [facility] Monocytes/100 WBC (Bld) 11 % [facility] Myelocytes/100 WBC (Bld) 1 % [facility] Neutrophils (Bld) [#/Vol] 20.4 10*3/uL High 1.5 - 6.6 10*3/uL [facility] Neutrophils.vacuolated LM Ql (Bld) 1+ [facility] Neutrophils/100 WBC (Bld) 86 % [facility] Platelet mean volume (Bld) [Entitic vol] 10.5 fL 7 - [address] [address] Platelets (Bld) [#/Vol] 120 10*3/uL Low [facility] RBC (Bld) [#/Vol] 4.16 10*6/uL [facility] RBC (Bld) [#/Vol] Normal [facility] Variant lymphocytes/100 WBC (Bld) 3 % [facility] WBC LM Ql (Sput) 23.[address] [facility] [address] IONIZED CALCIUMon 09-25-2024 IONIZED CALCIUM - ICAN 4.8 mg/dL Normal 4.5-5.3 Pr [facility] Comment on above: Performed By: #### C PK #### [facility] ([facility]) [address] [place] [address] VIR IONIZED MAGNESIUMon 09-26-19 Magnesium [Moles/Vol] 0.56 mmol/L Normal 0.45-0.74 Pr [facility] Comment on above: Performed By: #### U LUDMILA #### [facility] ([facility]) [address] [place] [address] VIR Ionized calciumon 09-25-2024 Calcium.ionized ISE [Moles/Vol] 4.8 mg/dL 4.5 - 5.3 mg/dL [facility] Interpretation and review of laboratory results Normal [facility] Ionized magnesiumon 09-26-19 Interpretation and review of laboratory results Normal [facility] Magnesium Ionized ISE (Bld) [Moles/Vol] 0.56 mmol/L 0.45 - 0.74 mmol/L [facility] MAGNESIUMon 09-25-2024 Magnesium [Mass/Vol] 1.8 mg/dL Normal 1.8-2.6 [facility] Comment on above: Performed By: #### U LUDMILA #### [facility] ([facility]) [address] [place] [address] VIR Magnesiumon 09-25-2024 Interpretation and review of laboratory results Normal [facility] Magnesium [Mass/Vol] 1.8 mg/dL 1.8 - 2 .6 mg/dL [facility] No Panel Informationon 09-25 [facility] PHOSPHORUSon 09-25-2024 Phosphate [Mass/Vol] 2.3 mg/dL Low 2.4-4.9 [facility] Comment on above: Performed By: #### U LUDMILA #### [facility] ([facility]) [address] [place] [address] VIR Phosphoruson 09-25-2024 Interpretation and review of laboratory results Abnormal [facility] Phosphate [Mass/Vol] 2.3 mg/dL Low 2.4 - 4 .9 mg/dL [facility] Bacteria identified Aer cx N om (Bld)on 09-24-2024 Bacteria identified Aer cx Nom (Unsp spec) NO GROWTH 5 DAYS [facility] CBC WITH AUTO DIFFERENTIALon 09-24-2024 BASOPHILS ABSOLUTE COUNT (10*3/UL) BY AUTOMATED COUNT 0.0 10*3/uL Normal [facility] Comment on above: Result Comment: This is an appended report. These results have been appended to a previously preliminary verified report. Performed By: #### C PK #### [facility] ([facility]) [address] [place] [address] VIR BASOPHILS RELATIVE PERCENT BY AUTOMATED COUNT 0.1 % Normal [facility] Comment on above: Result Comment: This is an appended report. These results have been appended to a previously preliminary verified report. Performed By: #### C PK #### [facility] ([facility]) [address] [place] [address] VIR CELLAVISION DIFFERENTIAL TYPE AUTOMATED DIFFERENTIAL Normal [facility] Comment on above: Result Comment: This is an appended report. These results have been appended to a previously preliminary verified report. Performed By: #### C PK #### [facility] ([facility]) [address] [place] [address] VIR Eosinophils (Bld) [#/Vol] 0.0 10*3/uL Normal [facility] Comment on above: Result Comment: This is an appended report. These results have been appended to a previously preliminary verified report. Performed By: #### C PK #### [facility] ([facility]) [address] [place] [address] VIR EOSINOPHILS RELATIVE PERCENT BY AUTOMATED COUNT 0.0 % Normal [facility] Comment on above: Result Comment: This is an appended report. These results have been appended to a previously preliminary verified report. Performed By: #### C PK #### [facility] ([facility]) [address] [place] [address] VIR Erythrocyte distribution width (RBC) [Ratio] 15.3 % High 11.5-15 [facility] Comment on above: Performed By: #### C PK #### [facility] ([facility]) [address] [place] [address] VIR Hematocrit (Bld) [Volume fraction] 34.8 % Low 35-47 [facility] Comment on above: Performed By: #### C PK #### [facility] ([facility]) [address] [place] [address] VIR Hemoglobin (Bld) [Mass/Vol] 11.2 g/dL Low 11.7-15.5 [facility] Comment on above: Performed By: #### C PK #### [facility] ([facility]) [address] [place] [address] VIR LYMPHOCYTES ABSOLUTE COUNT (10*3/UL) BY AUTOMATED COUNT 0.7 10*3/uL Normal [facility] Comment on above: Result Comment: This is an appended report. These results have been appended to a previously preliminary verified report. Performed By: #### C PK #### [facility] ([facility]) [address] [place] [address] VIR LYMPHOCYTES RELATIVE PERCENT BY AUTOMATED COUNT 2.8 % Normal [facility] Comment on above: Result Comment: This is an appended report. These results have been appended to a previously preliminary verified report. Performed By: #### C PK #### [facility] ([facility]) [address] [place] [address] VIR MCH (RBC) [Entitic mass] 26.5 pg Low 27-34 [facility] Comment on above: Performed By: #### C PK #### [facility] ([facility]) [address] [place] [address] VIR MCHC (RBC) [Mass/Vol] 32.1 g/dL Normal 32-36 [facility] Comment on above: Performed By: #### C PK #### [facility] ([facility]) [address] [place] [address] VIR MCV (RBC) [Entitic vol] 82 fL Normal 80-100 [facility] Comment on above: Performed By: #### C PK #### [facility] ([facility]) [address] [place] [address] VIR MONOCYTES ABSOLUTE COUNT (10*3/UL) BY AUTOMATED COUNT 2.8 10*3/uL Normal [facility] Comment on above: Result Comment: This is an appended report. These results have been appended to a previously preliminary verified report. Performed By: #### C PK #### [facility] ([facility]) [address] [place] [address] VIR MONOCYTES RELATIVE PERCENT BY AUTOMATED COUNT 10.4 % Normal [facility] Comment on above: Result Comment: This is an appended report. These results have been appended to a previously preliminary verified report. Performed By: #### C PK #### [facility] ([facility]) [address] [place] [address] VIR NEUTROPHILS ABSOLUTE COUNT BY AUTOMATED COUNT 22.9 10*3/uL Normal [facility] Comment on above: Result Comment: This is an appended report. These results have been appended to a previously preliminary verified report. Performed By: #### C PK #### [facility] ([facility]) [address] [place] [address] VIR NEUTROPHILS RELATIVE PERCENT BY AUTOMATED COUNT 86.7 % Normal [facility] Comment on above: Result Comment: This is an appended report. These results have been appended to a previously preliminary verified report. Performed By: #### C PK #### [facility] ([facility]) [address] [place] [address] VIR Platelet mean volume (Bld) [Entitic vol] 9.5 fL Normal 7-12 [facility] Comment on above: Performed By: #### C PK #### [facility] ([facility]) [address] [place] [address] VIR Platelets (Bld) [#/Vol] 155 10*3/uL Normal 150-450 [facility] Comment on above: Performed By: #### C PK #### [facility] ([facility]) [address] [place] [address] VIR RBC COUNT 4.22 X10E12/L Normal 3.8-5.2 [facility] Comment on above: Performed By: #### C PK #### [facility] ([facility]) [address] [place] [address] VIR WBC (Bld) [#/Vol] 26.5 10*3/uL High 4-11 [facility] Comment on above: Performed By: #### C PK #### [facility] ([facility]) [address] [place] [address] VIR CBC auto differentialon 05-0 Basophils (Bld) [#/Vol] 0 10*3/uL P [facility] Basophils/100 WBC (Bld) 0.1 % P [facility] Differential cell count method Nom (Bld) AUTOMATED DIFFERENTIAL [facility] Eosinophils (Bld) [#/Vol] 0 10*3/uL [facility] Eosinophils/100 WBC (Bld) 0 % [facility] Erythrocyte distribution width (RBC) [Ratio] 15.3 % High 11.5 - 15 % [facility] Hematocrit (Bld) [Volume fraction] 34.8 % Low 35 - 47 % [facility] Hemoglobin (Bld) [Mass/Vol] 11.2 g/dL Low 11.7 - 15.5 g/dL [facility] Interpretation and review of laboratory results Abnormal [facility] Lymphocytes (Bld) [#/Vol] 0.7 10*3/uL [facility] Lymphocytes/100 WBC (Bld) 2.8 % [facility] MCH (RBC) [Entitic mass] 26.5 pg Low 27 - 34 pg [facility] MCHC (RBC) [Mass/Vol] 32.1 g/dL 32 - 3 6 g/dL [facility] MCV (RBC) [Entitic vol] 82 fL 80 - 100 fL [facility] Monocytes (Bld) [#/Vol] 2.8 10*3/uL [facility] Monocytes/100 WBC (Bld) 10.4 % P [facility] Neutrophils (Bld) [#/Vol] 22.9 10*3/uL [facility] Neutrophils/100 WBC (Bld) 86.7 % [facility] Platelet mean volume (Bld) [Entitic vol] 9.5 fL 7 - 12 fL [facility] Platelets (Bld) [#/Vol] 155 10*3/uL [facility] RBC (Bld) [#/Vol] 4.22 10*6/uL [facility] WBC LM Ql (Sput) 26.5 High [facility] COMPREHENSIVE METABOLIC PANE Antoni 09-24-2024 Albumin [Mass/Vol] 3.3 g/dL Normal 3.2-5.3 [facility] Comment on above: Performed By: #### C PK #### [facility] ([facility]) [address] [place] [address] VIR ALP [Catalytic activity/Vol] 61 U/L Normal 39-130 [facility] Comment on above: Performed By: #### C PK #### [facility] ([facility]) [address] [place] [address] VIR ALT [Catalytic activity/Vol] 33 U/L High <=31 [facility] Comment on above: Performed By: #### C PK #### [facility] ([facility]) [address] [place] [address] VIR Anion gap [Moles/Vol] 10 mmol/L Normal 5-[address] [facility] Comment on above: Performed By: #### C PK #### [facility] ([facility]) [address] [place] [address] VIR AST [Catalytic activity/Vol] 19 U/L Normal <=41 [facility] Comment on above: Performed By: #### C PK #### [facility] ([facility]) [address] [place] [address] VIR Bilirubin [Mass/Vol] 0.4 mg/dL Normal 0.3-1.2 [facility] Comment on above: Performed By: #### C PK #### [facility] ([facility]) [address] [place] [address] VIR Calcium [Mass/Vol] 8.7 mg/dL Normal 8.5-10.5 [facility] Comment on above: Performed By: #### C PK #### [facility] ([facility]) [address] [place] [address] VIR Chloride [Moles/Vol] 108 mmol/L Normal 98-109 [facility] Comment on above: Performed By: #### C PK #### [facility] ([facility]) [address] [place] [address] VIR CO2 [Moles/Vol] 23 mmol/L Normal 22-32 [facility] Comment on above: Performed By: #### C PK #### [facility] ([facility]) [address] [place] [address] VIR Creatinine [Mass/Vol] 1.06 mg/dL High 0.40-1.[address] [facility] Comment on above: Result Comment: METH OD TRACEABLE TO IDMS STANDARD Performed By: #### C PK #### [facility] ([facility]) [address] [place] [address] VIR GFR/1.73 sq M.predicted among non-blacks MDRD (S/P/Bld) [Vol rate/Area] 62 mL/min/{1.73_m2} Normal >=60 [facility] Comment on above: Result Comment: Repo rted eGFR is based on the CKD-EPI 2020 equation that does not use a race coefficient. Performed By: #### C PK #### [facility] ([facility]) [address] [place] [address] VIR Glucose [Mass/Vol] 120 mg/dL High 65-99 [facility] Comment on above: Performed By: #### C PK #### [facility] ([facility]) [address] [place] [address] VIR Potassium [Moles/Vol] 4.3 mmol/L Normal 3.5-5.[address] [facility] Comment on above: Performed By: #### C PK #### [facility] ([facility]) [address] [place] [address] VIR Protein [Mass/Vol] 6.3 g/dL Normal 6.0-8.0 [facility] Comment on above: Performed By: #### C PK #### [facility] ([facility]) [address] [place] [address] VIR Sodium [Moles/Vol] 141 mmol/L Normal 134-146 [facility] Comment on above: Performed By: #### C PK #### [facility] ([facility]) [address] [place] [address] VIR Urea nitrogen [Mass/Vol] 27 mg/dL High 5-23 [facility] Comment on above: Performed By: #### C PK #### [facility] ([facility]) [address] [place] [address] VIR CREATININE, SERUMon 09-25-19 25 CREATININE, SERUM PMP CREATININE, SERU M Cancelled Normal [facility] Comment on above: Order Comment: Spoke to Regina Taylor RN. BMP since resulted making duplicate order, add-on is not necessary. Comprehensive metabolic pane lOrdered By: Paxton Navarro on 09-24-2024 Albumin [Mass/Vol] 3.3 g/dL 3.2 - 5.3 g/dL [facility] ALP [Catalytic activity/Vol] 61 U/L 39 - 130 U/L [facility] ALT No additional P-5'-P [Catalytic activity/Vol] 33 U/L High NINF - 31 U/L [facility] Anion gap [Moles/Vol] 10 mmol/L 5 - 15 mmol/L [facility] AST [Catalytic activity/Vol] 19 U/L NINF - 41 U/L [facility] Bilirubin [Mass/Vol] 0.4 mg/dL 0.3 - 1 .2 mg/dL [facility] Calcium [Mass/Vol] 8.7 mg/dL 8.5 - 10. 5 mg/dL [facility] Chloride [Moles/Vol] 108 mmol/L 98 - 10 9 mmol/L [facility] CO2 [Moles/Vol] 23 mmol/L 22 - 32 mmol/L [facility] Creatinine [Mass/Vol] 1.06 mg/dL High 0.40 - 1.00 mg/dL [facility] EGFR Non-Race Dependent 62 - PINF P [facility] Glucose [Mass/Vol] 120 mg/dL High 65 - 99 mg/dL [facility] Interpretation and review of laboratory results Abnormal [facility] Potassium [Moles/Vol] 4.3 mmol/L 3.5 - 5.0 mmol/L [facility] Protein [Mass/Vol] 6.3 g/dL 6.0 - 8.0 g/dL [facility] Sodium [Moles/Vol] 141 mmol/L 134 - 146 mmol/L [facility] Urea nitrogen [Mass/Vol] 27 mg/dL High 5 - 23 mg/dL [facility] [place] SWALLOW MOTILITY FUNCTION on 09-24-2024 [...] Christian MD on 09/24/2024 1:36 PM Normal [facility] IONIZED CALCIUMon 09-24-2024 IONIZED CALCIUM - ICAN 4.9 mg/dL Normal 4.5-5.3 Pr [facility] Comment on above: Performed By: #### C PK #### [facility] ([facility]) [address] [place] [address] VIR Ionized calciumon 09-24-2024 Calcium.ionized ISE [Moles/Vol] 4.9 mg/dL 4.5 - 5.3 mg/dL [facility] Interpretation and review of laboratory results Normal [facility] MAGNESIUMon 09-24-2024 Magnesium [Mass/Vol] 2.3 mg/dL Normal 1.8-2.6 [facility] Comment on above: Performed By: #### C PK #### [facility] ([facility]) [address] [place] [address] VIR Magnesiumon 09-24-2024 Magnesium [Mass/Vol] 2.3 mg/dL 1.8 - 2 .6 mg/dL [facility] No Panel Informationon 09-24 Interpretation and review of laboratory results Normal [facility] PHOSPHORUSon 09-24-2024 Phosphate [Mass/Vol] 3.5 mg/dL Normal 2.4-4.9 [facility] Comment on above: Performed By: #### C PK #### [facility] ([facility]) [address] [place] [address] VIR Phosphoruson 09-24-2024 Phosphate [Mass/Vol] 3.5 mg/dL 2.4 - 4 .9 mg/dL [facility] RF videography Hypopharynx a nd Esophagus Viewson 09-24-2024 SECTRAPACS [facility] Radiology Study observation (narrative) [facility] RF videography Hypopharynx a nd Esophagus ViewsOrdered By: Remy Christian on 09-24-2024 [facility] Work Phone: ABO Rh Repeaton 09-23-2024 ABO O [facility] Rh Nom (Bld) Positive [facility] ABO O [facility] Rh Nom (Bld) Positive [facility] BASIC METABOLIC PANELon Anion gap [Moles/Vol] 8 mmol/L Normal 5-[address] [facility] Comment on above: Performed By: #### T [email or web address] #### [facility] ([facility]) [address] [place] [address] VIR Calcium [Mass/Vol] 9.0 mg/dL Normal 8.5-10.5 [facility] Comment on above: Performed By: #### T [email or web address] #### [facility] ([facility]) [address] [place] [address] VIR Chloride [Moles/Vol] 111 mmol/L High 98-109 [facility] Comment on above: Performed By: #### T [email or web address] #### [facility] ([facility]) [address] [place] [address] VIR CO2 [Moles/Vol] 24 mmol/L Normal 22-32 [facility] Comment on above: Performed By: #### T [email or web address] #### [facility] ([facility]) [address] [place] [address] VIR Creatinine [Mass/Vol] 0.91 mg/dL Normal 0.40-1.[address] [facility] Comment on above: Result Comment: METH OD TRACEABLE TO IDMS STANDARD Performed By: #### T [email or web address] #### [facility] ([facility]) [address] [place] [address] VIR GFR/1.73 sq M.predicted among non-blacks MDRD (S/P/Bld) [Vol rate/Area] 74 mL/min/{1.73_m2} Normal >=60 [facility] Comment on above: Result Comment: Repo rted eGFR is based on the CKD-EPI 2020 equation that does not use a race coefficient. Performed By: #### T [email or web address] #### [facility] ([facility]) [address] [place] [address] VIR Glucose [Mass/Vol] 106 mg/dL High 65-99 [facility] Comment on above: Performed By: #### T [email or web address] #### [facility] ([facility]) [address] [place] [address] VIR Potassium [Moles/Vol] 4.4 mmol/L Normal 3.5-5.[address] [facility] Comment on above: Performed By: #### T [email or web address] #### [facility] ([facility]) [address] [place] [address] VIR Sodium [Moles/Vol] 143 mmol/L Normal 134-146 [facility] Comment on above: Performed By: #### T [email or web address] #### [facility] ([facility]) [address] [place] [address] VIR Urea nitrogen [Mass/Vol] 25 mg/dL High 5-23 [facility] Comment on above: Performed By: #### T [email or web address] #### [facility] ([facility]) [address] [place] [address] VIR BEDSIDE GLUCOSEon 09-23-2024 Glucose [Mass/Vol] 153 mg/dL High 65-99 [facility] Comment on above: Performed By: #### T [email or web address] #### [facility] ([facility]) [address] [place] [address] VIR Basic Metabolic PanelOrdered By: Prema Beach on 09-23-2024 Anion gap [Moles/Vol] 8 mmol/L 5 - 15 mmol/L [facility] Calcium [Mass/Vol] 9 mg/dL 8.5 - 10. 5 mg/dL [facility] Chloride [Moles/Vol] 111 mmol/L High 98 - 10 9 mmol/L [facility] CO2 [Moles/Vol] 24 mmol/L 22 - 32 mmol/L [facility] Creatinine [Mass/Vol] 0.91 mg/dL 0.40 - 1.00 mg/dL [facility] EGFR Non-Race Dependent 74 - PINF [facility] Glucose [Mass/Vol] 106 mg/dL High 65 - 99 mg/dL [facility] Interpretation and review of laboratory results Abnormal [facility] Potassium [Moles/Vol] 4.4 mmol/L 3.5 - 5.0 mmol/L [facility] Sodium [Moles/Vol] 143 mmol/L 134 - 146 mmol/L [facility] Urea nitrogen [Mass/Vol] 25 mg/dL High 5 - 23 mg/dL [facility] Bedside Glucose *Place/Obtai n serum glucose if >500 per glucometer.on 09-23-2024 Glucose [Mass/Vol] 153 mg/dL High 65 - 99 mg/dL [facility] Interpretation and review of laboratory results Abnormal [facility] CBC WITH AUTO DIFFERENTIALon 09-23-2024 BASOPHILS ABSOLUTE COUNT (10*3/UL) BY AUTOMATED COUNT 0.1 10*3/uL Normal [facility] Comment on above: Performed By: #### T [email or web address] #### [facility] ([facility]) [address] [place] [address] VIR BASOPHILS RELATIVE PERCENT BY AUTOMATED COUNT 0.4 % Normal [facility] Comment on above: Performed By: #### T NIHS1 #### [facility] ([facility]) [address] [place] [address] VIR CELLAVISION DIFFERENTIAL TYPE AUTOMATED DIFFERENTIAL Normal [facility] Comment on above: Performed By: #### T [email or web address] #### [facility] ([facility]) [address] [place] [address] VIR Eosinophils (Bld) [#/Vol] 0.0 10*3/uL Normal [facility] Comment on above: Performed By: #### T NIHS1 #### [facility] ([facility]) [address] [place] [address] VIR EOSINOPHILS RELATIVE PERCENT BY AUTOMATED COUNT 0.1 % Normal [facility] Comment on above: Performed By: #### T NIHS1 #### [facility] ([facility]) [address] [place] [address] VIR Erythrocyte distribution width (RBC) [Ratio] 15.5 % High 11.5-15 [facility] Comment on above: Performed By: #### T [email or web address] #### [facility] ([facility]) [address] [place] [address] VIR Hematocrit (Bld) [Volume fraction] 37.3 % Normal 35-47 [facility] Comment on above: Performed By: #### T [email or web address] #### [facility] ([facility]) [address] [place] [address] VIR Hemoglobin (Bld) [Mass/Vol] 12.3 g/dL Normal 11.7-15.5 [facility] Comment on above: Performed By: #### T [email or web address] #### [facility] ([facility]) [address] [place] [address] VIR LYMPHOCYTES ABSOLUTE COUNT (10*3/UL) BY AUTOMATED COUNT 1.1 10*3/uL Normal [facility] Comment on above: Performed By: #### T [email or web address] #### [facility] ([facility]) [address] [place] [address] VIR LYMPHOCYTES RELATIVE PERCENT BY AUTOMATED COUNT 7.0 % Normal [facility] Comment on above: Performed By: #### T [email or web address] #### [facility] ([facility]) [address] [place] [address] VIR MCH (RBC) [Entitic mass] 26.9 pg Low 27-34 [facility] Comment on above: Performed By: #### T [email or web address] #### [facility] ([facility]) [address] [place] [address] VIR MCHC (RBC) [Mass/Vol] 32.9 g/dL Normal 32-[address] [facility] Comment on above: Performed By: #### T [email or web address] #### [facility] ([facility]) [address] [place] [address] VIR MCV (RBC) [Entitic vol] 82 fL Normal 80-100 [facility] Comment on above: Performed By: #### T NIHS1 #### [facility] ([facility]) [address] [place] [address] VIR MONOCYTES ABSOLUTE COUNT (10*3/UL) BY AUTOMATED COUNT 1.0 10*3/uL Normal [facility] Comment on above: Performed By: #### T NIHS1 #### [facility] ([facility]) [address] [place] [address] VIR MONOCYTES RELATIVE PERCENT BY AUTOMATED COUNT 6.9 % Normal [facility] Comment on above: Performed By: #### T [email or web address] #### [facility] ([facility]) [address] [place] [address] VIR NEUTROPHILS ABSOLUTE COUNT BY AUTOMATED COUNT 12.9 10*3/uL Normal [facility] Comment on above: Performed By: #### T [email or web address] #### [facility] ([facility]) [address] [place] [address] VIR NEUTROPHILS RELATIVE PERCENT BY AUTOMATED COUNT 85.6 % Normal [facility] Comment on above: Performed By: #### T [email or web address] #### [facility] ([facility]) [address] [place] [address] VIR Platelet mean volume (Bld) [Entitic vol] 9.5 fL Normal 7-12 [facility] Comment on above: Performed By: #### T [email or web address] #### [facility] ([facility]) [address] [place] [address] VIR Platelets (Bld) [#/Vol] 167 10*3/uL Normal 150-450 [facility] Comment on above: Performed By: #### T [email or web address] #### [facility] ([facility]) [address] [place] [address] VIR RBC COUNT 4.57 X10E12/L Normal 3.8-5.2 [facility] Comment on above: Performed By: #### T [email or web address] #### [facility] ([facility]) [address] [place] [address] VIR WBC (Bld) [#/Vol] 15.1 10*3/uL High 4-11 [facility] Comment on above: Performed By: #### T [email or web address] #### [facility] ([facility]) [address] [place] [address] VIR CBC auto differentialon 05-0 Basophils (Bld) [#/Vol] 0.1 10*3/uL [facility] Basophils/100 WBC (Bld) 0.4 % [facility] Differential cell count method Nom (Bld) AUTOMATED DIFFERENTIAL [facility] Eosinophils (Bld) [#/Vol] 0 10*3/uL [facility] Eosinophils/100 WBC (Bld) 0.1 % [facility] Erythrocyte distribution width (RBC) [Ratio] 15.5 % High 11.5 - 15 % [facility] Hematocrit (Bld) [Volume fraction] 37.3 % 35 - 47 % [facility] Hemoglobin (Bld) [Mass/Vol] 12.3 g/dL 11.7 - 15.5 g/dL [facility] Interpretation and review of laboratory results Abnormal [facility] Lymphocytes (Bld) [#/Vol] 1.1 10*3/uL [facility] Lymphocytes/100 WBC (Bld) 7 % [facility] MCH (RBC) [Entitic mass] 26.9 pg Low 27 - 34 pg [facility] MCHC (RBC) [Mass/Vol] 32.9 g/dL 32 - 3 6 g/dL [facility] MCV (RBC) [Entitic vol] 82 fL 80 - 100 fL [facility] Monocytes (Bld) [#/Vol] 1 10*3/uL [facility] Monocytes/100 WBC (Bld) 6.9 % [facility] Neutrophils (Bld) [#/Vol] 12.9 10*3/uL [facility] Neutrophils/100 WBC (Bld) 85.6 % [facility] Platelet mean volume (Bld) [Entitic vol] 9.5 fL 7 - 12 fL [facility] Platelets (Bld) [#/Vol] 167 10*3/uL [facility] RBC (Bld) [#/Vol] 4.57 10*6/uL [facility] WBC LM Ql (Sput) 15.[address] BRAIN WO CONTon CT BRAIN WO CONT CT BRAIN WO [...] Hebert Farrar on 09/23/2024 7:38 PM Normal [facility] CT Head WO contraston 2024 [facility]ACS [facility] Radiology Study observation (narrative) [employer] customer [employer] CT Head WO contrastOrdered B y: Hebert Farrar on 09-23-2024 [employer] Work Phone: Clinical Pathology ReviewOrd ered By: Jereimah Altman on 09-23-2024 Case Report [employer] Work Phone: Pathology report final diagnosis Narrative o5ijhSMmBILneLPhNGHeJ HwgxlWwYJOoiLBsN6Oenm vmAAmuBT8cAD6xyQyecMK mmNLgTDKzBiUvl3kuy905 zGPnj4zlDSODYZxvSVTON Wy9lNbrX02re2A5FbkuC0 7huASpRRA2IZDtGUWheJS cTMCiXJT3REBwnTBvI5qg RPRwYJ2itavdOFqnAUjgX FDikWA5YQCgzULgU2TyKI CeVBhnVNUadis8HiLbMe1 vdGVyeTcyMFxwYXJkXHBs YWluXGZzMjAgUHJvbWluZ W23CELejbGhtO6bGkT0RX YfHJucl93cTPMuG79ftQS tYSEdhO00cy9juSkzpJbx gtCvn2XkAmPniUinbqFvn gNtaLU5zP5fJaimTQHgPD wmn1DvQkPhwO3jbTvaDFa ggOqpcU7zqzRgy0BcvL8x UYG4vHXecEjjp1YiubKwH 9LofwGtSufuPDV2 [employer] Work Phone: [employer] Work Phone: ECG 12 leadon 09-23-2024 TRACEMASTERVUE [employer] IONIZED CALCIUMon 09-23-2024 IONIZED CALCIUM - ICAN 4.8 mg/dL Normal 4.5-5.3 Pr [facility] Comment on above: Performed By: #### T [email or web address] #### [facility] ([facility]) [address] [place] [address] VIR Ionized calciumon 09-23-2024 Calcium.ionized ISE [Moles/Vol] 4.8 mg/dL 4.5 - 5.3 mg/dL [facility] Interpretation and review of laboratory results Normal [facility] MAGNESIUMon 09-23-2024 Magnesium [Mass/Vol] 1.8 mg/dL Normal 1.8-2.6 [facility] Comment on above: Performed By: #### T [email or web address] #### [facility] ([facility]) [address] [place] [address] VIR Magnesiumon 09-23-2024 Magnesium [Mass/Vol] 1.8 mg/dL 1.8 - 2 .6 mg/dL [facility] No Panel Informationon 09-23 Interpretation and review of laboratory results Normal [facility] PHOSPHORUSon 09-23-2024 Phosphate [Mass/Vol] 3.0 mg/dL Normal 2.4-4.9 [facility] Comment on above: Result Comment: R-Sp ecimen slightly hemolyzed, results increased Performed By: #### T [email or web address] #### [facility] ([facility]) [address] [place] [address] VIR Phosphoruson 09-23-2024 Phosphate [Mass/Vol] 3 mg/dL 2.4 - 4 .9 mg/dL [facility] Protein electrophoresis, ser umon 09-23-2024 Albumin [Mass/Vol] 2.8 g/dL Low 3.4 - 5.3 g/dL [facility] Alpha 1 globulin Elph [Mass/Vol] 0.6 g/dL High 0.1 - 0.4 g/dL [facility] Alpha 2 globulin Elph [Mass/Vol] 1.2 g/dL High 0.4 - 1.1 g/dL [facility] Beta globulin Elph [Mass/Vol] 1 g/dL 0.5 - 1.2 g/dL [facility] Gamma globulin Elph (Body fld) [Mass/Vol] 0.9 g/dL 0.5 - 1.6 g/dL [facility] Interpretation and review of laboratory results Abnormal [facility] Pathologist interpretation (Bld) [Interp] See Pathology Report [facility] Protein [Mass/Vol] 6.4 g/dL 6.0 - 8.0 g/dL [facility] REPEATED ABORHon 09-23-2024 ABO_INTEP O Normal [facility] Comment on above: Performed By: #### T [email or web address] #### [facility] ([facility]) [address] [place] [address] VIR RH_INTEP Positive Normal [facility] Comment on above: Performed By: #### T [email or web address] #### [facility] ([facility]) [address] [place] [address] VIR X-ray abdomen NG Tube placem ent 1 viewon [facility]-23-[facility] (narrative) [facility] X-ray abdomen NG Tube placem ent 1 viewOrdered By: Sebastian Grayson on 09-23-2024 [facility] Work Phone: XR ABD NG TUBE PLACEMENT [...] Grayson MD on 09/23/2024 5:22 PM Normal [facility] XR Chest Single viewon 09-23 [facility] Study observation (narrative) [facility] XR Chest Single viewOrdered By: Shen Farooq on 09-23-2024 [facility] Work Phone: BASIC METABOLIC PANELon 05- Anion gap [Moles/Vol] 11 mmol/L Normal -[address] [facility] Comment on above: Performed By: #### C MP #### [facility] ([facility]) [address] [place] [address] VIR Calcium [Mass/Vol] 9.0 mg/dL Normal 8.5-10.5 [facility] Comment on above: Performed By: #### C MP #### [facility] ([facility]) [address] [place] [address] VIR Chloride [Moles/Vol] 110 mmol/L High 98-109 [facility] Comment on above: Performed By: #### C MP #### [facility] ([facility]) [address] [place] [address] VIR CO2 [Moles/Vol] 23 mmol/L Normal 22-32 [facility] Comment on above: Performed By: #### C MP #### [facility] ([facility]) [address] [place] [address] VIR Creatinine [Mass/Vol] 1.01 mg/dL High 0.40-1.[address] [facility] Comment on above: Result Comment: METH OD TRACEABLE TO IDMS STANDARD Performed By: #### C MP #### [facility] ([facility]) [address] [place] [address] VIR GFR/1.73 sq M.predicted among non-blacks MDRD (S/P/Bld) [Vol rate/Area] 65 mL/min/{1.73_m2} Normal >=60 [facility] Comment on above: Result Comment: Repo rted eGFR is based on the CKD-EPI 2020 equation that does not use a race coefficient. Performed By: #### C MP #### [facility] ([facility]) [address] [place] [address] VIR Glucose [Mass/Vol] 129 mg/dL High 65-99 [facility] Comment on above: Performed By: #### C MP #### [facility] ([facility]) [address] [place] [address] VIR Potassium [Moles/Vol] 4.4 mmol/L Normal 3.5-5.[address] [facility] Comment on above: Performed By: #### C MP #### [facility] ([facility]) [address] [place] [address] VIR Sodium [Moles/Vol] 144 mmol/L Normal 134-146 [facility] Comment on above: Performed By: #### C MP #### [facility] ([facility]) [address] [place] [address] VIR Urea nitrogen [Mass/Vol] 24 mg/dL High 5-23 [facility] Comment on above: Performed By: #### C MP #### [facility] ([facility]) [address] [place] [address] VIR Basic Metabolic PanelOrdered By: Rosenda Hernández on 09-22-2024 Anion gap [Moles/Vol] 11 mmol/L 5 - 15 mmol/L [facility] Calcium [Mass/Vol] 9 mg/dL 8.5 - 10. 5 mg/dL [facility] Chloride [Moles/Vol] 110 mmol/L High 98 - 10 9 mmol/L [facility] CO2 [Moles/Vol] 23 mmol/L 22 - 32 mmol/L [facility] Creatinine [Mass/Vol] 1.01 mg/dL High 0.40 - 1.00 mg/dL [facility] EGFR Non-Race Dependent 65 - PINF [facility] Glucose [Mass/Vol] 129 mg/dL High 65 - 99 mg/dL [facility] Interpretation and review of laboratory results Abnormal [facility] Potassium [Moles/Vol] 4.4 mmol/L 3.5 - 5.0 mmol/L [facility] Sodium [Moles/Vol] 144 mmol/L 134 - 146 mmol/L [facility] Urea nitrogen [Mass/Vol] 24 mg/dL High 5 - 23 mg/dL [facility] CBC WITH AUTO DIFFERENTIALon 09-22-2024 BASOPHILS ABSOLUTE COUNT (10*3/UL) BY AUTOMATED COUNT 0.0 10*3/uL Normal [facility] Comment on above: Performed By: #### C MP #### [facility] ([facility]) [address] [place] [address] VIR BASOPHILS RELATIVE PERCENT BY AUTOMATED COUNT 0.3 % Normal [facility] Comment on above: Performed By: #### C MP #### [facility] ([facility]) [address] [place] [address] VIR CELLAVISION DIFFERENTIAL TYPE AUTOMATED DIFFERENTIAL Normal [facility] Comment on above: Performed By: #### C MP #### [facility] ([facility]) [address] [place] [address] VIR Eosinophils (Bld) [#/Vol] 0.0 10*3/uL Normal [facility] Comment on above: Performed By: #### C MP #### [facility] ([facility]) [address] [place] [address] VIR EOSINOPHILS RELATIVE PERCENT BY AUTOMATED COUNT 0.0 % Normal [facility] Comment on above: Performed By: #### C MP #### [facility] ([facility]) [address] [place] [address] VIR Erythrocyte distribution width (RBC) [Ratio] 15.5 % High 11.5-15 [facility] Comment on above: Performed By: #### C MP #### [facility] ([facility]) [address] [place] [address] VIR Hematocrit (Bld) [Volume fraction] 38.0 % Normal 35-47 [facility] Comment on above: Performed By: #### C MP #### [facility] ([facility]) [address] [place] [address] VIR Hemoglobin (Bld) [Mass/Vol] 12.3 g/dL Normal 11.7-15.5 [facility] Comment on above: Performed By: #### C MP #### [facility] ([facility]) [address] [place] [address] VIR LYMPHOCYTES ABSOLUTE COUNT (10*3/UL) BY AUTOMATED COUNT 0.9 10*3/uL Normal [facility] Comment on above: Performed By: #### C MP #### [facility] ([facility]) [address] [place] [address] VIR LYMPHOCYTES RELATIVE PERCENT BY AUTOMATED COUNT 6.4 % Normal [facility] Comment on above: Performed By: #### C MP #### [facility] ([facility]) [address] [place] [address] VIR MCH (RBC) [Entitic mass] 27.0 pg Normal 27-34 [facility] Comment on above: Performed By: #### C MP #### [facility] ([facility]) [address] [place] [address] VIR MCHC (RBC) [Mass/Vol] 32.5 g/dL Normal 32-[address] [facility] Comment on above: Performed By: #### C MP #### [facility] ([facility]) [address] [place] [address] VIR MCV (RBC) [Entitic vol] 83 fL Normal 80-100 [facility] Comment on above: Performed By: #### C MP #### [facility] ([facility]) [address] [place] [address] VIR MONOCYTES ABSOLUTE COUNT (10*3/UL) BY AUTOMATED COUNT 0.8 10*3/uL Normal [facility] Comment on above: Performed By: #### C MP #### [facility] ([facility]) [address] [place] [address] VIR MONOCYTES RELATIVE PERCENT BY AUTOMATED COUNT 6.0 % Normal [facility] Comment on above: Performed By: #### C MP #### [facility] ([facility]) [address] [place] [address] VIR NEUTROPHILS ABSOLUTE COUNT BY AUTOMATED COUNT 11.9 10*3/uL Normal [facility] Comment on above: Performed By: #### C MP #### [facility] ([facility]) [address] [place] [address] VIR NEUTROPHILS RELATIVE PERCENT BY AUTOMATED COUNT 87.3 % Normal [facility] Comment on above: Performed By: #### C MP #### [facility] ([facility]) [address] [place] [address] VIR Platelet mean volume (Bld) [Entitic vol] 9.6 fL Normal 7-12 [facility] Comment on above: Performed By: #### C MP #### [facility] ([facility]) [address] [place] [address] VIR Platelets (Bld) [#/Vol] 167 10*3/uL Normal 150-450 [facility] Comment on above: Performed By: #### C MP #### [facility] ([facility]) [address] [place] [address] VIR RBC COUNT 4.57 X10E12/L Normal 3.8-5.2 [facility] Comment on above: Performed By: #### C MP #### [facility] ([facility]) [address] [place] [address] VIR WBC (Bld) [#/Vol] 13.7 10*3/uL High 4-11 [facility] Comment on above: Performed By: #### C MP #### [facility] ([facility]) [address] [place] [address] VIR CBC auto differentialon 05-0 Basophils (Bld) [#/Vol] 0 10*3/uL P [facility] [employer] Basophils/100 WBC (Bld) 0.3 % P [facility] Differential cell count method Nom (Bld) AUTOMATED DIFFERENTIAL [facility] Eosinophils (Bld) [#/Vol] 0 10*3/uL [facility] Eosinophils/100 WBC (Bld) 0 % [facility] Erythrocyte distribution width (RBC) [Ratio] 15.5 % High 11.5 - 15 % [facility] Hematocrit (Bld) [Volume fraction] 38 % 35 - 47 % [facility] Hemoglobin (Bld) [Mass/Vol] 12.3 g/dL 11.7 - 15.5 g/dL [facility] Interpretation and review of laboratory results Abnormal [facility] Lymphocytes (Bld) [#/Vol] 0.9 10*3/uL [facility] Lymphocytes/100 WBC (Bld) 6.4 % [facility] MCH (RBC) [Entitic mass] 27 pg 27 - 34 pg [facility] MCHC (RBC) [Mass/Vol] 32.5 g/dL 32 - 3 6 g/dL [facility] MCV (RBC) [Entitic vol] 83 fL 80 - 100 fL [facility] Monocytes (Bld) [#/Vol] 0.8 10*3/uL [facility] Monocytes/100 WBC (Bld) 6 % P [facility] Neutrophils (Bld) [#/Vol] 11.9 10*3/uL [facility] Neutrophils/100 WBC (Bld) 87.3 % [facility] Platelet mean volume (Bld) [Entitic vol] 9.6 fL 7 - 12 fL [facility] Platelets (Bld) [#/Vol] 167 10*3/uL [facility] RBC (Bld) [#/Vol] 4.57 10*6/uL [facility] WBC LM Ql (Sput) 13.7 High [facility] Cardiac echo study Procedure Ordered By: Nava Gamez on 09-22-2024 Aortic root 3 cm [facility] Work Phone: Aortic valve Mean systole pressure gradient by US.doppler derived full Bernoulli 4 mmHg [facility] Work Phone: Aortic valve Orifice area by US 3.39 [facility] Work Phone: Aortic valve Peak systolic flow by US.doppler 132 cm/s [facility] Work Phone: AV peak gradient 6.97 mmHg [employer] Work Phone: AV Velocity Ratio 0.98 [employer] Work Phone: AV VTI 28.3 cm [employer] Work Phone: E wave deceleration time 369 msec [employer] Work Phone: E/A ratio 0.5 [employer] Work Phone: Energy loss index 16.04 [employer] Work Phone: FS 46 % 28 - 44 % [employer] Work Phone: Interventricular Septum Diastolic Thickness by 2D 10 cm [employer] Work Phone: IVS 1 cm 0.6 - 1.1 cm [employer] Work Phone: LA size 3.2 cm [employer] Work Phone: LA volume 66.4 cm3 [employer] Work Phone: LA Volume Index 28.1 mL/m2 [employer] Work Phone: Left Ventricle Mass [id number] g [employer] Work Phone: LV ESV A2C 53.2 mL [employer] Work Phone: LV ESV A4C 78.5 mL [employer] Work Phone: LV RWT 2D 56.41 [employer] Work Phone: LVIDd 3.9 cm 7.16 - 9.95 cm [employer] Work Phone: LVIDs 2.1 cm 4.15 - 6.28 cm [employer] Work Phone: LVOT diameter 2.1 cm [employer] Work Phone: LVOT peak dayday 1.35 m/s [employer] Work Phone: LVOT peak VTI 27.7 cm [employer] Work Phone: LVOT stroke volume 95.94 ml [employer] Work Phone: Mitral Valve Max Velocity 2.24 cm/s [employer] Work Phone: MV mean gradient 10 mmHg [employer] Work Phone: MV Peak A Dayday 172 cm/s [employer] Work Phone: MV Peak E Dayday 86.8 cm/s [employer] Work Phone: MV peak gradient 20.07 mmHg [employer] Work Phone: MV pressure 1/2 time 108 ms [employer] Work Phone: MV TDI E' (medial) 3.92 cm/s [facility] Work Phone: MV valve area by continuity eq 1.35 [employer] Work Phone: MV valve area p 1/2 method 2.04 cm2 [employer] Work Phone: MV VTI 71 cm [employer] Work Phone: PV peak gradient 3.41 mmHg [employer] Work Phone: PW 1.1 cm 0.6 - 1.1 cm [employer] Work Phone: RV diastolic dimension (basal) 38 mm [employer] Work Phone: TAPSE 2.39 cm [employer] Work Phone: TDI 3.81 cm/s [employer] Work Phone: Valve area - Index 1.4 [employer] Work Phone: ZLVIDD -7.72 [employer] Work Phone: ZLVIDS -7.02 [employer] Work Phone: [employer] Work Phone: Cardiac echo study Procedure on 09-22-2024 [facility] Radiology Study observation (narrative) [facility] ELECTROLYTE PANELon 09-23-19 25 Anion gap [Moles/Vol] 11 mmol/L Normal 5-[address] [facility] Comment on above: Performed By: #### C MP #### [facility] ([facility]) [address] [place] [address] VIR Chloride [Moles/Vol] 109 mmol/L Normal 98-109 [facility] Comment on above: Performed By: #### C MP #### [facility] ([facility]) [address] [place] [address] VIR CO2 [Moles/Vol] 22 mmol/L Normal 22-32 [facility] Comment on above: Performed By: #### C MP #### [facility] ([facility]) [address] [place] [address] VIR Potassium [Moles/Vol] 4.5 mmol/L Normal 3.5-5.[address] [facility] Comment on above: Performed By: #### C MP #### [facility] ([facility]) [address] [place] [address] VIR Sodium [Moles/Vol] 142 mmol/L Normal 134-146 [facility] Comment on above: Performed By: #### C MP #### [facility] ([facility]) [address] [place] [address] VIR Anion gap [Moles/Vol] 10 mmol/L Normal 5-[address] [facility] Comment on above: Performed By: #### C MP #### [facility] ([facility]) [address] [place] [address] VIR Chloride [Moles/Vol] 110 mmol/L High 98-109 [facility] Comment on above: Performed By: #### C MP #### [facility] ([facility]) [address] [place] [address] VIR CO2 [Moles/Vol] 23 mmol/L Normal 22-32 [facility] Comment on above: Performed By: #### C MP #### [facility] ([facility]) [address] [place] [address] VIR Potassium [Moles/Vol] 4.1 mmol/L Normal 3.5-5.[address] [facility] Comment on above: Performed By: #### C MP #### [facility] ([facility]) [address] [place] [address] VIR Sodium [Moles/Vol] 143 mmol/L Normal 134-146 [facility] Comment on above: Performed By: #### C MP #### [facility] ([facility]) [address] [place] [address] VIR Electrolyte panelOrdered By: Leif Bazan on 09-22-2024 Anion gap [Moles/Vol] 11 mmol/L 5 - 15 mmol/L [facility] Chloride [Moles/Vol] 109 mmol/L 98 - 10 9 mmol/L [facility] CO2 [Moles/Vol] 22 mmol/L 22 - 32 mmol/L [facility] Interpretation and review of laboratory results Normal [facility] Potassium [Moles/Vol] 4.5 mmol/L 3.5 - 5.0 mmol/L [facility] Sodium [Moles/Vol] 142 mmol/L 134 - 146 mmol/L [facility] Electrolyte panelOrdered By: Mao Toro on 09-22-2024 Anion gap [Moles/Vol] 10 mmol/L 5 - 15 mmol/L [facility] Chloride [Moles/Vol] 110 mmol/L High 98 - 10 9 mmol/L [facility] CO2 [Moles/Vol] 23 mmol/L 22 - 32 mmol/L [facility] Interpretation and review of laboratory results Abnormal [facility] Potassium [Moles/Vol] 4.1 mmol/L 3.5 - 5.0 mmol/L [facility] Sodium [Moles/Vol] 143 mmol/L 134 - 146 mmol/L [facility] IONIZED CALCIUMon 09-22-2024 IONIZED CALCIUM - ICAN 4.6 mg/dL Normal 4.5-5.3 Pr [facility] Comment on above: Performed By: #### C MP #### [facility] ([facility]) [address] [place] [address] VIR Ionized calciumOrdered By: Jose Vásquez on 09-22-2024 Calcium.ionized ISE [Moles/Vol] 4.6 mg/dL 4.5 - 5.3 mg/dL [facility] Interpretation and review of laboratory results Normal [facility] MAGNESIUMon 09-22-2024 Magnesium [Mass/Vol] 1.9 mg/dL Normal 1.8-2.6 [facility] Comment on above: Performed By: #### C MP #### [facility] ([facility]) [address] [place] [address] VIR Magnesiumon 09-22-2024 Magnesium [Mass/Vol] 1.9 mg/dL 1.8 - 2 .6 mg/dL [facility] No Panel Informationon 09-22 Interpretation and review of laboratory results Normal [facility] PHOSPHORUSon 09-22-2024 Phosphate [Mass/Vol] 3.3 mg/dL Normal 2.4-4.9 [facility] Comment on above: Performed By: #### C MP #### [facility] ([facility]) [address] [place] [address] VIR Phosphoruson 09-22-2024 Phosphate [Mass/Vol] 3.3 mg/dL 2.4 - 4 .9 mg/dL [facility] TYPE AND SCREENon 09-22-2024 ABO_INTEP O Normal [facility] Comment on above: Performed By: #### T [email or web address] #### [facility] ([facility]) [address] [place] [address] VIR RH_INTEP Positive Normal [facility] Comment on above: Performed By: #### T NIHS1 #### [facility] ([facility]) [address] [place] [address] VIR Type and screen(includes ind irect sinan)on 09-22-2024 ABO O [facility] Rh Nom (Bld) Positive [facility] VANCOMYCIN, RANDOMon 025 VANCOMYCIN 16.5 ug/mL Normal 5.0-40.0 [facility] Comment on above: Order Comment: Peak 30-40 ug/mLTrough 5-20 ug/ml Performed By: #### C MP #### [facility] ([facility]) [address] [place] [address] VIR Vancomycin, randomon 025 Vancomycin [Susc] 16.5 ug/mL 5.0 - 40.0 ug/mL [facility] MAGI Screen w/ Reflexon 09-21 Interpretation and review of laboratory results Normal [facility] Nuclear Ab IA Ql (S) Negative Negative [facility] BASIC METABOLIC PANELon Anion gap [Moles/Vol] 10 mmol/L Normal 5-[address] [facility] Comment on above: Performed By: #### L ACTS #### [facility] ([facility]) [address] [place] [address] VIR Calcium [Mass/Vol] 9.2 mg/dL Normal 8.5-10.5 [facility] Comment on above: Performed By: #### L ACTS #### [facility] ([facility]) [address] [place] [address] VIR Chloride [Moles/Vol] 114 mmol/L High 98-109 [facility] Comment on above: Performed By: #### L ACTS #### [facility] ([facility]) [address] [place] [address] VIR CO2 [Moles/Vol] 24 mmol/L Normal 22-32 [facility] Comment on above: Performed By: #### L ACTS #### [facility] ([facility]) [address] [place] [address] VIR Creatinine [Mass/Vol] 1.27 mg/dL High 0.40-1.[address] [facility] Comment on above: Result Comment: METH OD TRACEABLE TO IDMS STANDARD Performed By: #### L ACTS #### [facility] ([facility]) [address] [place] [address] VIR GFR/1.73 sq M.predicted among non-blacks MDRD (S/P/Bld) [Vol rate/Area] 50 mL/min/{1.73_m2} Low >=60 [facility] Comment on above: Result Comment: Repo rted eGFR is based on the CKD-EPI 2020 equation that does not use a race coefficient. Performed By: #### L ACTS #### [facility] ([facility]) [address] [place] [address] VIR Glucose [Mass/Vol] 127 mg/dL High 65-99 [facility] Comment on above: Performed By: #### L ACTS #### [facility] ([facility]) [address] [place] [address] VIR Potassium [Moles/Vol] 3.9 mmol/L Normal 3.5-5.[address] [facility] Comment on above: Performed By: #### L ACTS #### [facility] ([facility]) [address] [place] [address] VIR Sodium [Moles/Vol] 148 mmol/L High 134-146 [facility] Comment on above: Performed By: #### L ACTS #### [facility] ([facility]) [address] [place] [address] VIR Urea nitrogen [Mass/Vol] 24 mg/dL High 5-23 [facility] Comment on above: Performed By: #### L ACTS #### [facility] ([facility]) [address] [place] [address] VIR Bacteria identified Aer cx N om (Bld)Ordered By: Maicol Mg on 09-21-2024 Bacteria identified Aer cx Nom (Unsp spec) Negative Abnormal [facility] Interpretation and review of laboratory results Abnormal [facility] Microscopic observation Gram stain Nom (Unsp spec) Positive Abnormal [facility] Basic Metabolic Panelon Anion gap [Moles/Vol] 10 mmol/L 5 - 15 mmol/L [facility] Calcium [Mass/Vol] 9.2 mg/dL 8.5 - 10. 5 mg/dL [facility] Chloride [Moles/Vol] 114 mmol/L High 98 - 10 9 mmol/L [facility] CO2 [Moles/Vol] 24 mmol/L 22 - 32 mmol/L [facility] Creatinine [Mass/Vol] 1.27 mg/dL High 0.40 - 1.00 mg/dL [facility] EGFR Non-Race Dependent 50 Low - PINF P [facility] Glucose [Mass/Vol] 127 mg/dL High 65 - 99 mg/dL [facility] Interpretation and review of laboratory results Abnormal [facility] Potassium [Moles/Vol] 3.9 mmol/L 3.5 - 5.0 mmol/L [facility] Sodium [Moles/Vol] 148 mmol/L High 134 - 146 mmol/L [facility] Urea nitrogen [Mass/Vol] 24 mg/dL High 5 - 23 mg/dL [facility] CBC WITH AUTO DIFFERENTIALon 09-21-2024 BASOPHILS ABSOLUTE COUNT (10*3/UL) BY AUTOMATED COUNT 0.1 10*3/uL Normal [facility] Comment on above: Performed By: #### A MMON #### [facility] ([facility]) [address] [place] [address] VIR BASOPHILS RELATIVE PERCENT BY AUTOMATED COUNT 0.7 % Normal [facility] Comment on above: Performed By: #### A MMON #### [facility] ([facility]) [address] [place] [address] VIR CELLAVISION DIFFERENTIAL TYPE AUTOMATED DIFFERENTIAL Normal [facility] Comment on above: Performed By: #### A MMON #### [facility] ([facility]) [address] [place] [address] VIR Eosinophils (Bld) [#/Vol] 0.0 10*3/uL Normal [facility] Comment on above: Performed By: #### A MMON #### [facility] ([facility]) [address] [place] [address] VIR EOSINOPHILS RELATIVE PERCENT BY AUTOMATED COUNT 0.0 % Normal [facility] Comment on above: Performed By: #### A MMON #### [facility] ([facility]) [address] [place] [address] VIR Erythrocyte distribution width (RBC) [Ratio] 15.1 % High 11.5-15 [facility] Comment on above: Performed By: #### A MMON #### [facility] ([facility]) [address] [place] [address] VIR Hematocrit (Bld) [Volume fraction] 33.6 % Low 35-47 [facility] Comment on above: Performed By: #### A MMON #### [facility] ([facility]) [address] [place] [address] VIR Hemoglobin (Bld) [Mass/Vol] 11.0 g/dL Low 11.7-15.5 [facility] Comment on above: Performed By: #### A MMON #### [facility] ([facility]) [address] [place] [address] VIR LYMPHOCYTES ABSOLUTE COUNT (10*3/UL) BY AUTOMATED COUNT 0.8 10*3/uL Normal [facility] Comment on above: Performed By: #### A MMON #### [facility] ([facility]) [address] [place] [address] VIR LYMPHOCYTES RELATIVE PERCENT BY AUTOMATED COUNT 6.2 % Normal [facility] Comment on above: Performed By: #### A MMON #### [facility] ([facility]) [address] [place] [address] VIR MCH (RBC) [Entitic mass] 27.1 pg Normal 27-34 [facility] Comment on above: Performed By: #### A MMON #### [facility] ([facility]) [address] [place] [address] VIR MCHC (RBC) [Mass/Vol] 32.6 g/dL Normal 32-[address] [facility] Comment on above: Performed By: #### A MMON #### [facility] ([facility]) [address] [place] [address] VIR MCV (RBC) [Entitic vol] 83 fL Normal 80-100 [facility] Comment on above: Performed By: #### A MMON #### [facility] ([facility]) [address] [place] [address] VIR MONOCYTES ABSOLUTE COUNT (10*3/UL) BY AUTOMATED COUNT 0.6 10*3/uL Normal [facility] Comment on above: Performed By: #### A MMON #### [facility] ([facility]) [address] [place] [address] VIR MONOCYTES RELATIVE PERCENT BY AUTOMATED COUNT 4.8 % Normal [facility] Comment on above: Performed By: #### A MMON #### [facility] ([facility]) [address] [place] [address] VIR NEUTROPHILS ABSOLUTE COUNT BY AUTOMATED COUNT 10.8 10*3/uL Normal [facility] Comment on above: Performed By: #### A MMON #### [facility] ([facility]) [address] [place] [address] VIR NEUTROPHILS RELATIVE PERCENT BY AUTOMATED COUNT 88.3 % Normal [facility] Comment on above: Performed By: #### A MMON #### [facility] ([facility]) [address] [place] [address] VIR Platelet mean volume (Bld) [Entitic vol] 9.2 fL Normal 7-12 [facility] Comment on above: Performed By: #### A MMON #### [facility] ([facility]) [address] [place] [address] VIR Platelets (Bld) [#/Vol] 183 10*3/uL Normal 150-450 [facility] Comment on above: Performed By: #### A MMON #### [facility] ([facility]) [address] [place] [address] VIR RBC COUNT 4.05 X10E12/L Normal 3.8-5.2 [facility] Comment on above: Performed By: #### A MMON #### [facility] ([facility]) [address] [place] [address] VIR WBC (Bld) [#/Vol] 12.2 10*3/uL High 4-11 [facility] Comment on above: Performed By: #### A MMON #### [facility] ([facility]) [address] [place] [address] VIR CBC auto differentialon 05-0 -2024 Basophils (Bld) [#/Vol] 0.1 10*3/uL [facility] Basophils/100 WBC (Bld) 0.7 % [facility] Differential cell count method Nom (Bld) AUTOMATED DIFFERENTIAL [facility] Eosinophils (Bld) [#/Vol] 0 10*3/uL [facility] Eosinophils/100 WBC (Bld) 0 % [facility] Erythrocyte distribution width (RBC) [Ratio] 15.1 % High 11.5 - 15 % [facility] Hematocrit (Bld) [Volume fraction] 33.6 % Low 35 - 47 % [facility] Hemoglobin (Bld) [Mass/Vol] 11 g/dL Low 11.7 - 15.5 g/dL [facility] Interpretation and review of laboratory results Abnormal [facility] Lymphocytes (Bld) [#/Vol] 0.8 10*3/uL [facility] Lymphocytes/100 WBC (Bld) 6.2 % [facility] MCH (RBC) [Entitic mass] 27.1 pg 27 - 34 pg [facility] MCHC (RBC) [Mass/Vol] 32.6 g/dL 32 - 3 6 g/dL [facility] MCV (RBC) [Entitic vol] 83 fL 80 - 100 fL [facility] Monocytes (Bld) [#/Vol] 0.6 10*3/uL [facility] Monocytes/100 WBC (Bld) 4.8 % [facility] Neutrophils (Bld) [#/Vol] 10.8 10*3/uL [facility] Neutrophils/100 WBC (Bld) 88.3 % [facility] Platelet mean volume (Bld) [Entitic vol] 9.2 fL 7 - 12 fL [facility] Platelets (Bld) [#/Vol] 183 10*3/uL [facility] RBC (Bld) [#/Vol] 4.05 10*6/uL [facility] WBC LM Ql (Sput) 12.2 High [facility] ELECTROLYTE PANELon 09-22-19 25 Anion gap [Moles/Vol] 11 mmol/L Normal 5-[address] [facility] Comment on above: Performed By: #### C MP #### [facility] ([facility]) [address] [place] [address] VIR Chloride [Moles/Vol] 113 mmol/L High 98-109 [facility] Comment on above: Performed By: #### C MP #### [facility] ([facility]) [address] [place] [address] VIR CO2 [Moles/Vol] 22 mmol/L Normal 22-32 [facility] Comment on above: Performed By: #### C MP #### [facility] ([facility]) [address] [place] [address] VIR Potassium [Moles/Vol] 4.2 mmol/L Normal 3.5-5.[address] [facility] Comment on above: Performed By: #### C MP #### [facility] ([facility]) [address] [place] [address] VIR Sodium [Moles/Vol] 146 mmol/L Normal 134-146 [facility] Comment on above: Performed By: #### C MP #### [facility] ([facility]) [address] [place] [address] VIR Anion gap [Moles/Vol] 9 mmol/L Normal 5-[address] [facility] Comment on above: Performed By: #### L ACTS #### [facility] ([facility]) [address] [place] [address] VIR Chloride [Moles/Vol] 112 mmol/L High 98-109 [facility] Comment on above: Performed By: #### L ACTS #### [facility] ([facility]) [address] [place] [address] VIR CO2 [Moles/Vol] 24 mmol/L Normal 22-32 [facility] Comment on above: Performed By: #### L ACTS #### [facility] ([facility]) [address] [place] [address] VIR Potassium [Moles/Vol] 4.1 mmol/L Normal 3.5-5.[address] [facility] Comment on above: Performed By: #### L ACTS #### [facility] ([facility]) [address] [place] [address] VIR Sodium [Moles/Vol] 145 mmol/L Normal 134-146 [facility] Comment on above: Performed By: #### L ACTS #### [facility] ([facility]) [address] [place] [address] VIR Electrolyte panelOrdered By: Tk Keene on 09-21-2024 Anion gap [Moles/Vol] 11 mmol/L 5 - 15 mmol/L [facility] Chloride [Moles/Vol] 113 mmol/L High 98 - 10 9 mmol/L [facility] CO2 [Moles/Vol] 22 mmol/L 22 - 32 mmol/L [facility] Interpretation and review of laboratory results Abnormal [facility] Potassium [Moles/Vol] 4.2 mmol/L 3.5 - 5.0 mmol/L [facility] Sodium [Moles/Vol] 146 mmol/L 134 - 146 mmol/L [facility] Electrolyte panelOrdered By: Alexa Carrero on 09-21-2024 Anion gap [Moles/Vol] 9 mmol/L 5 - 15 mmol/L [facility] Chloride [Moles/Vol] 112 mmol/L High 98 - 10 9 mmol/L [facility] CO2 [Moles/Vol] 24 mmol/L 22 - 32 mmol/L [facility] Interpretation and review of laboratory results Abnormal [facility] Potassium [Moles/Vol] 4.1 mmol/L 3.5 - 5.0 mmol/L [facility] Sodium [Moles/Vol] 145 mmol/L 134 - 146 mmol/L [facility] Glomerular basement membrane IgG ABon 09-21-2024 Glomerular basement membrane IgG Qn (S) NINF [facility] IONIZED CALCIUMon 09-21-2024 IONIZED CALCIUM - ICAN 5.1 mg/dL Normal 4.5-5.3 Pr [facility] Comment on above: Performed By: #### A MMON #### [facility] ([facility]) [address] [place] [address] VIR IONIZED MAGNESIUMon 09-22-19 Magnesium [Moles/Vol] 0.61 mmol/L Normal 0.45-0.74 Pr [facility] Comment on above: Performed By: #### L ACTS #### [facility] ([facility]) [address] [place] [address] VIR Ionized calciumon 09-21-2024 Calcium.ionized ISE [Moles/Vol] 5.1 mg/dL 4.5 - 5.3 mg/dL [facility] Interpretation and review of laboratory results Normal [facility] Ionized magnesiumon 09-22-19 25 Interpretation and review of laboratory results Normal [facility] Magnesium Ionized ISE (Bld) [Moles/Vol] 0.61 mmol/L 0.45 - 0.74 mmol/L [facility] MAGNESIUMon 09-21-2024 Magnesium [Mass/Vol] 1.8 mg/dL Normal 1.8-2.6 [facility] Comment on above: Performed By: #### A MMON #### [facility] ([facility]) [address] [place] [address] VIR Magnesiumon 09-21-2024 Magnesium [Mass/Vol] 1.8 mg/dL 1.8 - 2 .6 mg/dL [facility] Myeloperoxidase ABon 025 Myeloperoxidase Ab Qn (S) NINF [facility] No Panel Informationon 09-21 Interpretation and review of laboratory results Normal [facility] Interpretation and review of laboratory results Normal [facility] PHOSPHORUSon 09-21-2024 Phosphate [Mass/Vol] 2.7 mg/dL Normal 2.4-4.9 [facility] Comment on above: Performed By: #### L ACTS #### [facility] ([facility]) [address] [place] [address] VIR Phosphoruson 09-21-2024 Phosphate [Mass/Vol] 2.7 mg/dL 2.4 - 4 .9 mg/dL [facility] Proteinase 3 AB PR3on 2024 Proteinase 3 Ab Qn (S) [facility] Pr [facility] VANCOMYCIN, RANDOMon 025 VANCOMYCIN 16.0 ug/mL Normal 5.0-40.0 [facility] Comment on above: Order Comment: Resul t did not trigger repeat Lactate, re-order if needed. Performed By: #### L ACTS #### [facility] ([facility]) [address] [place] [address] VIR Vancomycin, randomon 025 Interpretation and review of laboratory results Normal [facility] Vancomycin [Susc] 16 ug/mL 5.0 - 40.0 ug/mL [facility] BASIC METABOLIC PANELon 05-0 Anion gap [Moles/Vol] 11 mmol/L Normal 5-[address] [facility] Comment on above: Performed By: #### N UM #### [facility] ([facility]) [address] [place] [address] VIR Calcium [Mass/Vol] 9.3 mg/dL Normal 8.5-10.5 [facility] Comment on above: Performed By: #### N UM #### [facility] ([facility]) [address] [place] [address] VIR Chloride [Moles/Vol] 119 mmol/L High 98-109 [facility] Comment on above: Performed By: #### N UM #### [facility] ([facility]) [address] [place] [address] VIR CO2 [Moles/Vol] 24 mmol/L Normal 22-32 [facility] Comment on above: Performed By: #### N UM #### [facility] ([facility]) [address] [place] [address] VIR Creatinine [Mass/Vol] 2.60 mg/dL High 0.40-1.[address] [facility] Comment on above: Result Comment: METH OD TRACEABLE TO IDMS STANDARD Performed By: #### N UM #### [facility] ([facility]) [address] [place] [address] VIR GFR/1.73 sq M.predicted among non-blacks MDRD (S/P/Bld) [Vol rate/Area] 21 mL/min/{1.73_m2} Low >=60 [facility] Comment on above: Result Comment: Repo rted eGFR is based on the CKD-EPI 2020 equation that does not use a race coefficient. Performed By: #### N UM #### [facility] ([facility]) [address] [place] [address] VIR Glucose [Mass/Vol] 149 mg/dL High 65-99 [facility] Comment on above: Performed By: #### N UM #### [facility] ([facility]) [address] [place] [address] VIR Potassium [Moles/Vol] 4.0 mmol/L Normal 3.5-5.[address] [facility] Comment on above: Performed By: #### N UM #### [facility] ([facility]) [address] [place] [address] VIR Sodium [Moles/Vol] 154 mmol/L High 134-146 [facility] Comment on above: Performed By: #### N UM #### [facility] ([facility]) [address] [place] [address] VIR Urea nitrogen [Mass/Vol] 38 mg/dL High 5-23 [facility] Comment on above: Performed By: #### N UM #### [facility] ([facility]) [address] [place] [address] VIR BLOOD CULTUREon 09-20-2024 Bacteria identified Cx Nom (Bld) CULTURE RESULTS NO GROWTH 5 DAYS Normal [facility] Comment on above: Order Comment: Resul t did not trigger repeat Lactate, re-order if needed. Performed By: #### L ACTS #### [facility] ([facility]) [address] [place] [address] VIR Bacteria identified Cx Nom (Bld) CULTURE RESULTS NO GROWTH 5 DAYS Normal [facility] Comment on above: Order Comment: *SIRS Criteria: [...] may be affected. Performed By: #### C MP #### [facility] ([facility]) [address] [place] [address] VIR Basic Metabolic Panelon Anion gap [Moles/Vol] 11 mmol/L 5 - 15 mmol/L [facility] Calcium [Mass/Vol] 9.3 mg/dL 8.5 - 10. 5 mg/dL [facility] Chloride [Moles/Vol] 119 mmol/L High 98 - 10 9 mmol/L [facility] CO2 [Moles/Vol] 24 mmol/L 22 - 32 mmol/L [facility] Creatinine [Mass/Vol] 2.6 mg/dL High 0.40 - 1.00 mg/dL [facility] EGFR Non-Race Dependent 21 Low - PINF [facility] Glucose [Mass/Vol] 149 mg/dL High 65 - 99 mg/dL [facility] Interpretation and review of laboratory results Abnormal [facility] Potassium [Moles/Vol] 4 mmol/L 3.5 - 5.0 mmol/L [facility] Sodium [Moles/Vol] 154 mmol/L High 134 - 146 mmol/L [facility] Urea nitrogen [Mass/Vol] 38 mg/dL High 5 - 23 mg/dL [facility] CBC WITH AUTO DIFFERENTIALon 09-20-2024 BASOPHILS ABSOLUTE COUNT (10*3/UL) BY AUTOMATED COUNT 0.0 10*3/uL Normal [facility] Comment on above: Performed By: #### N UM #### [facility] ([facility]) [address] [place] [address] VIR BASOPHILS RELATIVE PERCENT BY AUTOMATED COUNT 0.5 % Normal [facility] Comment on above: Performed By: #### N UM #### [facility] ([facility]) [address] [place] [address] VIR CELLAVISION DIFFERENTIAL TYPE AUTOMATED DIFFERENTIAL Normal [facility] Comment on above: Performed By: #### N UM #### [facility] ([facility]) [address] [place] [address] VIR Eosinophils (Bld) [#/Vol] 0.0 10*3/uL Normal [facility] Comment on above: Performed By: #### N UM #### [facility] ([facility]) [address] [place] [address] VIR EOSINOPHILS RELATIVE PERCENT BY AUTOMATED COUNT 0.0 % Normal [facility] Comment on above: Performed By: #### N UM #### [facility] ([facility]) [address] [place] [address] VIR Erythrocyte distribution width (RBC) [Ratio] 15.6 % High 11.5-15 [facility] Comment on above: Performed By: #### N UM #### [facility] ([facility]) [address] [place] [address] VIR Hematocrit (Bld) [Volume fraction] 33.5 % Low 35-47 [facility] Comment on above: Performed By: #### N UM #### [facility] ([facility]) [address] [place] [address] VIR Hemoglobin (Bld) [Mass/Vol] 11.0 g/dL Low 11.7-15.5 [facility] Comment on above: Performed By: #### N UM #### [facility] ([facility]) [address] [place] [address] VIR LYMPHOCYTES ABSOLUTE COUNT (10*3/UL) BY AUTOMATED COUNT 0.5 10*3/uL [facility] Comment on above: Performed By: #### N UM #### [facility] ([facility]) [address] [place] [address] VIR LYMPHOCYTES RELATIVE PERCENT BY AUTOMATED COUNT 5.6 % Normal [facility] Comment on above: Performed By: #### N UM #### [facility] ([facility]) [address] [place] [address] VIR MCH (RBC) [Entitic mass] 26.9 pg Low 27-34 [facility] Comment on above: Performed By: #### N UM #### [facility] ([facility]) [address] [place] [address] VIR MCHC (RBC) [Mass/Vol] 32.8 g/dL Normal 32-[address] [facility] Comment on above: Performed By: #### N UM #### [facility] ([facility]) [address] [place] [address] VIR MCV (RBC) [Entitic vol] 82 fL Normal 80-100 [facility] Comment on above: Performed By: #### N UM #### [facility] ([facility]) [address] [place] [address] VIR MONOCYTES ABSOLUTE COUNT (10*3/UL) BY AUTOMATED COUNT 0.4 10*3/uL Normal [facility] Comment on above: Performed By: #### N UM #### [facility] ([facility]) [address] [place] [address] VIR MONOCYTES RELATIVE PERCENT BY AUTOMATED COUNT 4.3 % Normal [facility] Comment on above: Performed By: #### N UM #### [facility] ([facility]) [address] [place] [address] VIR NEUTROPHILS ABSOLUTE COUNT BY AUTOMATED COUNT 8.0 10*3/uL Normal [facility] Comment on above: Performed By: #### N UM #### [facility] ([facility]) [address] [place] [address] VIR NEUTROPHILS RELATIVE PERCENT BY AUTOMATED COUNT 89.6 % Normal [facility] Comment on above: Performed By: #### N UM #### [facility] ([facility]) [address] [place] [address] VIR Platelet mean volume (Bld) [Entitic vol] 9.0 fL Normal 7-12 [facility] Comment on above: Performed By: #### N UM #### [facility] ([facility]) [address] [place] [address] VIR Platelets (Bld) [#/Vol] 190 10*3/uL Normal 150-450 [facility] Comment on above: Performed By: #### N UM #### [facility] ([facility]) [address] [place] [address] VIR RBC COUNT 4.08 [id number]/L Normal 3.8-5.2 [facility] Comment on above: Performed By: #### N UM #### [facility] ([facility]) [address] [place] [address] VIR WBC (Bld) [#/Vol] 8.9 10*3/uL Normal 4-11 [facility] Comment on above: Performed By: #### N UM #### [facility] ([facility]) [address] [place] [address] VIR CBC auto differentialon 05-0 Basophils (Bld) [#/Vol] 0 10*3/uL [facility] Basophils/100 WBC (Bld) 0.5 % [facility] Differential cell count method Nom (Bld) AUTOMATED DIFFERENTIAL [facility] Eosinophils (Bld) [#/Vol] 0 10*3/uL [facility] Eosinophils/100 WBC (Bld) 0 % [facility] Erythrocyte distribution width (RBC) [Ratio] 15.6 % High 11.5 - 15 % [facility] Hematocrit (Bld) [Volume fraction] 33.5 % Low 35 - 47 % [facility] Hemoglobin (Bld) [Mass/Vol] 11 g/dL Low 11.7 - 15.5 g/dL [facility] Interpretation and review of laboratory results Abnormal [facility] Lymphocytes (Bld) [#/Vol] 0.5 10*3/uL [facility] Lymphocytes/100 WBC (Bld) 5.6 % [facility] MCH (RBC) [Entitic mass] 26.9 pg Low 27 - 34 pg [facility] MCHC (RBC) [Mass/Vol] 32.8 g/dL 32 - 3 6 g/dL [facility] MCV (RBC) [Entitic vol] 82 fL 80 - 100 fL [facility] Monocytes (Bld) [#/Vol] 0.4 10*3/uL [facility] Monocytes/100 WBC (Bld) 4.3 % [facility] Neutrophils (Bld) [#/Vol] 8 10*3/uL [facility] Neutrophils/100 WBC (Bld) 89.6 % [facility] Platelet mean volume (Bld) [Entitic vol] 9 fL 7 - 12 fL [facility] [place] Platelets (Bld) [#/Vol] 190 10*3/uL [facility] [facility] RBC (Bld) [#/Vol] 4.08 10*6/uL [facility] WBC LM Ql (Sput) 8.9 [facility] [facility] CT ABDOMEN AND PELVIS WO CON [...] Mejia MD on 09/20/2024 3:53 PM Normal [facility] CT Abdomen and Pelvis WO con traston 09-20-2024 SECTRAPACS [facility] Radiology Study observation (narrative) [facility] CT Abdomen and Pelvis WO con trastOrdered By: Bipin Mejia on 09-20-2024 [facility] Work Phone: ELECTROLYTE PANELon 09-21-19 25 Anion gap [Moles/Vol] 9 mmol/L Normal 5-[address] [facility] Comment on above: Performed By: #### A MMON #### [facility] ([facility]) [address] [place] [address] VIR Chloride [Moles/Vol] 113 mmol/L High 98-109 [facility] Comment on above: Performed By: #### A MMON #### [facility] ([facility]) [address] [place] [address] VIR CO2 [Moles/Vol] 25 mmol/L Normal 22-32 [facility] Comment on above: Performed By: #### A MMON #### [facility] ([facility]) [address] [place] [address] VIR Potassium [Moles/Vol] 5.1 mmol/L High 3.5-5.[address] [facility] Comment on above: Result Comment: R-Sp ecimen markedly hemolyzed, results increased Performed By: #### A MMON #### [facility] ([facility]) [address] [place] [address] VIR Sodium [Moles/Vol] 147 mmol/L High 134-146 [facility] Comment on above: Result Comment: R-Sp ecimen markedly hemolyzed, results questionable due to hemolysis Performed By: #### A MMON #### [facility] ([facility]) [address] [place] [address] VIR Anion gap [Moles/Vol] 8 mmol/L Normal 5-[address] [facility] Comment on above: Performed By: #### A MMON #### [facility] ([facility]) [address] [place] [address] VIR Chloride [Moles/Vol] 117 mmol/L High 98-109 [facility] Comment on above: Performed By: #### A MMON #### [facility] ([facility]) [address] [place] [address] VIR CO2 [Moles/Vol] 26 mmol/L Normal 22-32 [facility] Comment on above: Performed By: #### A MMON #### [facility] ([facility]) [address] [place] [address] VIR Potassium [Moles/Vol] 4.0 mmol/L Normal 3.5-5.[address] [facility] Comment on above: Performed By: #### A MMON #### [facility] ([facility]) [address] [place] [address] VIR Sodium [Moles/Vol] 151 mmol/L High 134-146 [facility] Comment on above: Performed By: #### A MMON #### [facility] ([facility]) [address] [place] [address] VIR Electrolyte panelOrdered By: Med Quiros on 09-20-2024 Anion gap [Moles/Vol] 9 mmol/L 5 - 15 mmol/L [facility] Chloride [Moles/Vol] 113 mmol/L High 98 - 10 9 mmol/L [facility] CO2 [Moles/Vol] 25 mmol/L 22 - 32 mmol/L [facility] Interpretation and review of laboratory results Abnormal [facility] Potassium [Moles/Vol] 5.1 mmol/L High 3.5 - 5.0 mmol/L [facility] Sodium [Moles/Vol] 147 mmol/L High 134 - 146 mmol/L [facility] Electrolyte panelon 09-21-19 Anion gap [Moles/Vol] 8 mmol/L 5 - 15 mmol/L [facility] Chloride [Moles/Vol] 117 mmol/L High 98 - 10 9 mmol/L [facility] CO2 [Moles/Vol] 26 mmol/L 22 - 32 mmol/L [facility] [facility] Interpretation and review of laboratory results Abnormal [facility] Potassium [Moles/Vol] 4 mmol/L 3.5 - 5.0 mmol/L [facility] Sodium [Moles/Vol] 151 mmol/L High 134 - 146 mmol/L [facility] IONIZED CALCIUMon 09-20-2024 IONIZED CALCIUM - ICAN 5.2 mg/dL Normal 4.5-5.3 Pr [facility] Comment on above: Performed By: #### N UM #### [facility] ([facility]) [address] [place] [address] VIR IONIZED MAGNESIUMon 09-21-19 Magnesium [Moles/Vol] 0.64 mmol/L Normal 0.45-0.74 Pr [facility] Comment on above: Performed By: #### A MMON #### [facility] ([facility]) [address] [place] [address] VIR Ionized calciumon 09-20-2024 Calcium.ionized ISE [Moles/Vol] 5.2 mg/dL 4.5 - 5.3 mg/dL [facility] Interpretation and review of laboratory results Normal [facility] Ionized magnesiumon 09-21-19 25 Interpretation and review of laboratory results Normal [facility] Magnesium Ionized ISE (Bld) [Moles/Vol] 0.64 mmol/L 0.45 - 0.74 mmol/L [facility] MAGNESIUMon 09-20-2024 Magnesium [Mass/Vol] 1.8 mg/dL Normal 1.8-2.6 [facility] Comment on above: Performed By: #### N UM #### [facility] ([facility]) [address] [place] [address] VIR MR BRAIN SYNAPTIVEon 025 MR BRAIN SYNAPTIVE MR BRAIN SYNAPTIVE History: 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 I favor a primary [employer] neoplasm such as a glioblastoma or astrocytoma. Metastasis can also present in this fashion. Finalized by Juan Antonio Lindquist MD on 09/20/2024 7:17 AM Normal [facility] MR Brainon 09-20-2024 SECTRAPACS [facility] Radiology Study observation (narrative) [facility] MR BrainOrdered By: Juan Antonio gilmore on 09-20-2024 [facility] Work Phone: Magnesiumon 09-20-2024 Magnesium [Mass/Vol] 1.8 mg/dL 1.8 - 2 .6 mg/dL [facility] No Panel Informationon 09-20 Interpretation and review of laboratory results Normal [facility] PHOSPHORUSon 09-20-2024 Phosphate [Mass/Vol] 3.5 mg/dL Normal 2.4-4.9 [facility] Comment on above: Performed By: #### N UM #### [facility] ([facility]) [address] [place] [address] VIR Phosphoruson 09-20-2024 Phosphate [Mass/Vol] 3.5 mg/dL 2.4 - 4 .9 mg/dL [facility] VANCOMYCIN, RANDOMon 025 VANCOMYCIN 10.0 ug/mL Normal 5.0-40.0 [facility] Comment on above: Order Comment: Peak 30-40 ug/mLTrough 5-20 ug/ml Performed By: #### A MMON #### [facility] ([facility]) [address] [place] [address] VIR Vancomycin, randomon 025 Interpretation and review of laboratory results Normal [facility] Vancomycin [Susc] 10 ug/mL 5.0 - 40.0 ug/mL [facility] X-ray abdomen NG Tube placem ent 1 viewon 09-20-2024 SECTRAPACS [facility] Radiology Study observation (narrative) [facility] X-ray abdomen NG Tube placem ent 1 viewOrdered By: Thad Aguero on 09-20-2024 [facility] Work Phone: XR ABD NG TUBE PLACEMENT 1 V IEWon 09-20-2024 XR ABD NG TUBE PLACEMENT 1 VIEW XR ABD NG TUBE PLACEMENT 1 VIEW Supine abdominal radiograph HISTORY: NG placement COMPARISON: None IMPRESSION: NG tube extends below the diaphragm into the stomach with tip in the distal gastric body. Finalized by Thad Aguero MD on 09/20/2024 8:04 PM Normal [facility] AMMONIAon 09-19-2024 Ammonia (P) [Moles/Vol] 24 umol/L Normal 18-72 P [facility] Comment on above: Performed By: #### A MMON #### [facility] ([facility]) [address] [place] [address] VIR MAGI SCREEN W/ REFLEXon 09-19 MAGI SCREEN W/REFLEX Negative Normal Negative [facility] Comment on above: Order Comment: Resul t did not trigger repeat Lactate, re-order if needed. Performed By: #### L ACTS #### [facility] ([facility]) [address] [place] [address] VIR APTTon 09-19-2024 aPTT Coag (PPP) [Time] 28 s Pr [facility] Interpretation and review of laboratory results Normal [facility] aPTT Coag (Bld) [Time] 28 s Normal 26-37 Pr [facility] Comment on above: Performed By: #### P TT #### [facility] ([facility]) [address] [place] [address] VIR Ammoniaon 09-19-2024 Ammonia (P) [Moles/Vol] 24 umol/L 18 - 72 umol/L [facility] Interpretation and review of laboratory results Normal [facility] BASIC METABOLIC PANELon 05- Anion gap [Moles/Vol] 17 mmol/L High 5-[address] [facility] Comment on above: Performed By: #### P INR #### [facility] ([facility]) [address] [place] [address] VIR Calcium [Mass/Vol] 9.2 mg/dL Normal 8.5-10.5 [facility] Comment on above: Performed By: #### P INR #### [facility] ([facility]) [address] [place] [address] VIR Chloride [Moles/Vol] 120 mmol/L High 98-109 [facility] Comment on above: Performed By: #### P INR #### [facility] ([facility]) [address] [place] [address] VIR Creatinine [Mass/Vol] 7.54 mg/dL High 0.40-1.[address] [facility] Comment on above: Result Comment: METH OD TRACEABLE TO IDMS STANDARD Performed By: #### P INR #### [facility] ([facility]) [address] [place] [address] VIR GFR/1.73 sq M.predicted among non-blacks MDRD (S/P/Bld) [Vol rate/Area] 6 mL/min/{1.73_m2} Low >=60 [facility] Comment on above: Result Comment: Repo rted eGFR is based on the CKD-EPI 2020 equation that does not use a race coefficient. Performed By: #### P INR #### [facility] ([facility]) [address] [place] [address] VIR Glucose [Mass/Vol] 107 mg/dL High 65-99 [facility] Comment on above: Performed By: #### P INR #### [facility] ([facility]) [address] [place] [address] VIR Potassium [Moles/Vol] 4.5 mmol/L Normal 3.5-5.[address] [facility] Comment on above: Performed By: #### P INR #### [facility] ([facility]) [address] [place] [address] VIR Sodium [Moles/Vol] 159 mmol/L High 134-146 [facility] Comment on above: Performed By: #### P INR #### [facility] ([facility]) [address] [place] [address] VIR Urea nitrogen [Mass/Vol] 81 mg/dL High 5-23 [facility] Comment on above: Performed By: #### P INR #### [facility] ([facility]) [address] [place] [address] VIR BEDSIDE GLUCOSEon 09-19-2024 Glucose [Mass/Vol] 110 mg/dL High 65-99 [facility] Comment on above: Performed By: #### N UM #### [facility] ([facility]) [address] [place] [address] VIR BLOOD CULTUREon 09-19-2024 Bacteria identified Cx Nom (Bld) CULTURE RESULTS STAPHYLOCOCCUS, COAGULASE NEGATIVE Staphylococcus, coagulase negative Not S. Lugdunensis Possible Collection Contamination STAPHYLOCOCCUS, COAGULASE NEGATIVE Staphylococcus, coagulase negative Not S. Lugdunensis Variant Possible Collection Contamination GRAM STAIN Gram positive cocci in clusters Abnormal [facility] Comment on above: Order Comment: *SIRS Criteria: (must display 2 without other explanation)-Temperature < 36 or >38-Pulse >90-Resp rate >20-WBC less than 4K or greater than 12KRepeat blood cultures not needed:-To document that a blood culture is a contaminant when 1 of 2 bottles is positive for a common contaminant (already listed in [facility] with the culture result)-To document clearance of gram negative bacteremia in patients with suspected urinary source who are improvingSuboptimal volume of blood collected, Results may be affected. Performed By: #### N UM #### [facility] ([facility]) [address] [place] [address] VIR Bacteria identified Cx Nom (Bld) CULTURE RESULTS NO GROWTH 5 DAYS Normal [facility] Comment on above: Order Comment: *SIRS Criteria: (must display 2 without other explanation)-Temperature < 36 or >38-Pulse >90-Resp rate >20-WBC less than 4K or greater than 12KRepeat blood cultures not needed:-To document that a blood culture is a contaminant when 1 of 2 bottles is positive for a common contaminant (already listed in [facility] with the culture result)-To document clearance of gram negative bacteremia in patients with suspected urinary source who are improving Performed By: #### N UM #### [facility] ([facility]) [address] [place] [address] VIR BLOOD GAS, ARTERIALon 2024 BASE,DEFICIT -8.0 mmol/L Low 0.0-2.0 [facility] Comment on above: Performed By: #### P INR #### [facility] ([facility]) [address] [place] [address] VIR HCO3 (Bld) [Moles/Vol] 16.8 mmol/L Low 22.0-26.0 [facility] Comment on above: Performed By: #### P INR #### [facility] ([facility]) [address] [place] [address] VIR Oxygen saturation in Blood 95.0 % Normal >90.0 [facility] Comment on above: Performed By: #### P INR #### [facility] ([facility]) [address] [place] [address] VIR PCO2 ARTERIAL 29.4 mmHg Low 35.0-45.0 [facility] Comment on above: Performed By: #### P INR #### [facility] ([facility]) [address] [place] [address] VIR PH ARTERIAL 7.364 Normal 7.350-7.45 0 [facility] Comment on above: Performed By: #### P INR #### [facility] ([facility]) [address] [place] [address] VIR PO2 ARTERIAL 78 mmHg Low 80-100 [facility] Comment on above: Performed By: #### P INR #### [facility] ([facility]) [address] [place] [address] VIR POC WILI'S TEST Pass Normal [facility] Comment on above: Performed By: #### P INR #### [facility] ([facility]) [address] [place] [address] VIR SAMPLE SITE L Rad Normal [facility] Comment on above: Performed By: #### P INR #### [facility] ([facility]) [address] [place] [address] VIR SAMPLE TYPE ARTERIAL Normal [facility] Comment on above: Performed By: #### P INR #### [facility] ([facility]) [address] [place] [address] VIR SOURCE OF OXYGEN Room Air Normal [facility] Comment on above: Performed By: #### P INR #### [facility] ([facility]) [address] [place] [address] VIR Basic Metabolic Panelon 05-0 Anion gap [Moles/Vol] 17 mmol/L High 5 - 15 mmol/L [facility] Calcium [Mass/Vol] 9.2 mg/dL 8.5 - 10. 5 mg/dL [facility] Chloride [Moles/Vol] 120 mmol/L High 98 - 10 9 mmol/L [facility] CO2 [Moles/Vol] 22 mmol/L 22 - 32 mmol/L [facility] Creatinine [Mass/Vol] 7.54 mg/dL High 0.40 - 1.00 mg/dL [facility] EGFR Non-Race Dependent 6 Low - PINF P [facility] Glucose [Mass/Vol] 107 mg/dL High 65 - 99 mg/dL [facility] Potassium [Moles/Vol] 4.5 mmol/L 3.5 - 5.0 mmol/L [facility] Sodium [Moles/Vol] 159 mmol/L High 134 - 146 mmol/L [facility] Urea nitrogen [Mass/Vol] 81 mg/dL High 5 - 23 mg/dL [facility] Bedside Glucose *Place/Obtai n serum glucose if >500 per glucometer.on 09-19-2024 Glucose [Mass/Vol] 110 mg/dL High 65 - 99 mg/dL [facility] Interpretation and review of laboratory results Abnormal [facility] Blood pathogens panel KELSIE+no n-probe (Pos bld culture)Ordered By: Dion Shipley on 09-19-2024 Interpretation and review of laboratory results Abnormal [facility] mecA/C gene PCR Detected Abnormal Not Detected [facility] Staphylococcus epidermidis PCR Detected Abnormal Not Detected [facility] CBC WITH AUTO DIFFERENTIALon 09-19-2024 BASOPHILS ABSOLUTE COUNT (10*3/UL) BY AUTOMATED COUNT 0.1 10*3/uL Normal [facility] Comment on above: Performed By: #### P INR #### [facility] ([facility]) [address] [place] [address] VIR BASOPHILS RELATIVE PERCENT BY AUTOMATED COUNT 0.8 % Normal [facility] Comment on above: Performed By: #### P INR #### [facility] ([facility]) [address] [place] [address] VIR CELLAVISION DIFFERENTIAL TYPE AUTOMATED DIFFERENTIAL Normal [facility] Comment on above: Performed By: #### P INR #### [facility] ([facility]) [address] [place] [address] VIR Eosinophils (Bld) [#/Vol] 0.3 10*3/uL Normal [facility] Comment on above: Performed By: #### P INR #### [facility] ([facility]) [address] [place] [address] VIR EOSINOPHILS RELATIVE PERCENT BY AUTOMATED COUNT 2.8 % Normal [facility] Comment on above: Performed By: #### P INR #### [facility] ([facility]) [address] [place] [address] VIR Erythrocyte distribution width (RBC) [Ratio] 15.6 % High 11.5-15 [facility] Comment on above: Performed By: #### P INR #### [facility] ([facility]) [address] [facility] [address] [place] [address] VIR Hematocrit (Bld) [Volume fraction] 34.9 % Low 35-47 [facility] Comment on above: Performed By: #### P INR #### [facility] ([facility]) [address] [place] [address] VIR Hemoglobin (Bld) [Mass/Vol] 11.4 g/dL Low 11.7-15.5 [facility] Comment on above: Performed By: #### P INR #### [facility] ([facility]) [address] [place] [address] VIR LYMPHOCYTES ABSOLUTE COUNT (10*3/UL) BY AUTOMATED COUNT 0.7 10*3/uL Normal [facility] Comment on above: Performed By: #### P INR #### [facility] ([facility]) [address] [facility] [address] [place] [address] VIR LYMPHOCYTES RELATIVE PERCENT BY AUTOMATED COUNT 7.9 % Normal [facility] Comment on above: Performed By: #### P INR #### [facility] ([facility]) [address] [facility] [place] [address] VIR MCH (RBC) [Entitic mass] 27.0 pg Normal 27-34 [facility] Comment on above: Performed By: #### P INR #### [facility] ([facility]) [address] [place] [address] VIR MCHC (RBC) [Mass/Vol] 32.8 g/dL Normal 32-[address] [facility] Comment on above: Performed By: #### P INR #### [facility] ([facility]) [address] [place] [address] VIR MCV (RBC) [Entitic vol] 82 fL Normal 80-100 [facility] Comment on above: Performed By: #### P INR #### [facility] ([facility]) [address] [place] [address] VIR MONOCYTES ABSOLUTE COUNT (10*3/UL) BY AUTOMATED COUNT 0.8 10*3/uL Normal [facility] Comment on above: Performed By: #### P INR #### [facility] ([facility]) [address] [place] [address] VIR MONOCYTES RELATIVE PERCENT BY AUTOMATED COUNT 8.9 % Normal [facility] Comment on above: Performed By: #### P INR #### [facility] ([facility]) [address] [place] [address] VIR NEUTROPHILS ABSOLUTE COUNT BY AUTOMATED COUNT 7.3 10*3/uL Normal [facility] Comment on above: Performed By: #### P INR #### [facility] ([facility]) [address] [place] [address] VIR NEUTROPHILS RELATIVE PERCENT BY AUTOMATED COUNT 79.6 % Normal [facility] Comment on above: Performed By: #### P INR #### [facility] ([facility]) [address] [place] [address] VIR Platelet mean volume (Bld) [Entitic vol] 9.2 fL Normal 7-12 [facility] Comment on above: Performed By: #### P INR #### [facility] ([facility]) [address] [place] [address] VIR Platelets (Bld) [#/Vol] 189 10*3/uL Normal 150-450 [facility] Comment on above: Performed By: #### P INR #### [facility] ([facility]) [address] [place] [address] VIR RBC COUNT 4.23 X10E12/L Normal 3.8-5.2 [facility] Comment on above: Performed By: #### P INR #### [facility] ([facility]) [address] [place] [address] VIR WBC (Bld) [#/Vol] 9.2 10*3/uL Normal 4-11 [facility] Comment on above: Performed By: #### P INR #### [facility] ([facility]) [address] [place] [address] VIR BASOPHILS ABSOLUTE COUNT (10*3/UL) BY AUTOMATED COUNT 0.1 10*3/uL Normal [facility] Comment on above: Performed By: #### C BCA #### [facility] ([facility]) [address] [place] [address] VIR BASOPHILS RELATIVE PERCENT BY AUTOMATED COUNT 0.6 % Normal [facility] Comment on above: Performed By: #### C BCA #### [facility] ([facility]) [address] [place] [address] VIR CELLAVISION DIFFERENTIAL TYPE AUTOMATED DIFFERENTIAL Normal [facility] Comment on above: Performed By: #### C BCA #### [facility] ([facility]) [address] [place] [address] VIR Eosinophils (Bld) [#/Vol] 0.4 10*3/uL Normal [facility] Comment on above: Performed By: #### C BCA #### [facility] ([facility]) [address] [place] [address] VIR EOSINOPHILS RELATIVE PERCENT BY AUTOMATED COUNT 3.4 % Normal [facility] Comment on above: Performed By: #### C BCA #### [facility] ([facility]) [address] [place] [address] VIR Erythrocyte distribution width (RBC) [Ratio] 15.7 % High 11.5-15 [facility] Comment on above: Performed By: #### C BCA #### [facility] ([facility]) [address] [place] [address] VIR Hematocrit (Bld) [Volume fraction] 34.9 % Low 35-47 [facility] Comment on above: Performed By: #### C BCA #### [facility] ([facility]) [address] [place] [address] VIR Hemoglobin (Bld) [Mass/Vol] 11.5 g/dL Low 11.7-15.5 [facility] Comment on above: Performed By: #### C BCA #### [facility] ([facility]) [address] [place] [address] VIR LYMPHOCYTES ABSOLUTE COUNT (10*3/UL) BY AUTOMATED COUNT 0.8 10*3/uL Normal [facility] Comment on above: Performed By: #### C BCA #### [facility] ([facility]) [address] [place] [address] VIR LYMPHOCYTES RELATIVE PERCENT BY AUTOMATED COUNT 7.5 % Normal [facility] Comment on above: Performed By: #### C BCA #### [facility] ([facility]) [address] [place] [address] VIR MCH (RBC) [Entitic mass] 27.7 pg Normal 27-34 [facility] Comment on above: Performed By: #### C BCA #### [facility] ([facility]) [address] [place] [address] VIR MCHC (RBC) [Mass/Vol] 33.1 g/dL Normal 32-[address] [facility] Comment on above: Performed By: #### C BCA #### [facility] ([facility]) [address] [place] [address] VIR MCV (RBC) [Entitic vol] 84 fL Normal 80-100 [facility] Comment on above: Performed By: #### C BCA #### [facility] ([facility]) [address] [place] [address] VIR MONOCYTES ABSOLUTE COUNT (10*3/UL) BY AUTOMATED COUNT 0.9 10*3/uL Normal [facility] Comment on above: Performed By: #### C BCA #### [facility] ([facility]) [address] [place] [address] VIR MONOCYTES RELATIVE PERCENT BY AUTOMATED COUNT 9.2 % Normal [facility] Comment on above: Performed By: #### C BCA #### [facility] ([facility]) [address] [place] [address] VIR NEUTROPHILS ABSOLUTE COUNT BY AUTOMATED COUNT 8.2 10*3/uL Normal [facility] Comment on above: Performed By: #### C BCA #### [facility] ([facility]) [address] [place] [address] VIR NEUTROPHILS RELATIVE PERCENT BY AUTOMATED COUNT 79.3 % Normal [facility] Comment on above: Performed By: #### C BCA #### [facility] ([facility]) [address] [place] [address] VIR Platelet mean volume (Bld) [Entitic vol] 9.2 fL Normal 7-12 [facility] Comment on above: Performed By: #### C BCA #### [facility] ([facility]) [address] [place] [address] VIR Platelets (Bld) [#/Vol] 199 10*3/uL Normal 150-450 [facility] Comment on above: Performed By: #### C BCA #### [facility] ([facility]) [address] [place] [address] VIR RBC COUNT 4.16 [id number] Normal 3.8-5.2 [facility] Comment on above: Performed By: #### C BCA #### [facility] ([facility]) [address] [place] [address] VIR WBC (Bld) [#/Vol] 10.3 10*3/uL Normal 4-11 [facility] Comment on above: Performed By: #### C BCA #### [facility] ([facility]) [address] [place] [address] VIR CBC auto differentialon 05-0 Basophils (Bld) [#/Vol] 0.1 10*3/uL [facility] Basophils/100 WBC (Bld) 0.8 % P [facility] Differential cell count method Nom (Bld) AUTOMATED DIFFERENTIAL [facility] Eosinophils (Bld) [#/Vol] 0.3 10*3/uL [facility] Eosinophils/100 WBC (Bld) 2.8 % [facility] Erythrocyte distribution width (RBC) [Ratio] 15.6 % High 11.5 - 15 % [facility] Hematocrit (Bld) [Volume fraction] 34.9 % Low 35 - 47 % [facility] Hemoglobin (Bld) [Mass/Vol] 11.4 g/dL Low 11.7 - 15.5 g/dL [facility] Interpretation and review of laboratory results Abnormal [facility] Lymphocytes (Bld) [#/Vol] 0.7 10*3/uL [facility] Lymphocytes/100 WBC (Bld) 7.9 % [facility] MCH (RBC) [Entitic mass] 27 pg 27 - 34 pg [facility] MCHC (RBC) [Mass/Vol] 32.8 g/dL 32 - 3 6 g/dL [facility] MCV (RBC) [Entitic vol] 82 fL 80 - 100 fL [facility] Monocytes (Bld) [#/Vol] 0.8 10*3/uL [facility] Monocytes/100 WBC (Bld) 8.9 % [facility] Neutrophils (Bld) [#/Vol] 7.3 10*3/uL [facility] Neutrophils/100 WBC (Bld) 79.6 % [facility] Platelet mean volume (Bld) [Entitic vol] 9.2 fL 7 - 12 fL [facility] Platelets (Bld) [#/Vol] 189 10*3/uL [facility] RBC (Bld) [#/Vol] 4.23 10*6/uL [facility] WBC LM Ql (Sput) 9.2 [facility] Basophils (Bld) [#/Vol] 0.1 10*3/uL [facility] Basophils/100 WBC (Bld) 0.6 % [facility] Differential cell count method Nom (Bld) AUTOMATED DIFFERENTIAL [facility] Eosinophils (Bld) [#/Vol] 0.4 10*3/uL [facility] Eosinophils/100 WBC (Bld) 3.4 % [facility] Erythrocyte distribution width (RBC) [Ratio] 15.7 % High 11.5 - 15 % [facility] Hematocrit (Bld) [Volume fraction] 34.9 % Low 35 - 47 % [facility] Hemoglobin (Bld) [Mass/Vol] 11.5 g/dL Low 11.7 - 15.5 g/dL [facility] Interpretation and review of laboratory results Abnormal [facility] Lymphocytes (Bld) [#/Vol] 0.8 10*3/uL [facility] Lymphocytes/100 WBC (Bld) 7.5 % [facility] MCH (RBC) [Entitic mass] 27.7 pg 27 - 34 pg [facility] MCHC (RBC) [Mass/Vol] 33.1 g/dL 32 - 3 6 g/dL [facility] MCV (RBC) [Entitic vol] 84 fL 80 - 100 fL [facility] Monocytes (Bld) [#/Vol] 0.9 10*3/uL [facility] Monocytes/100 WBC (Bld) 9.2 % P [facility] Neutrophils (Bld) [#/Vol] 8.2 10*3/uL [facility] Neutrophils/100 WBC (Bld) 79.3 % [facility] Platelet mean volume (Bld) [Entitic vol] 9.2 fL 7 - 12 fL [facility] Platelets (Bld) [#/Vol] 199 10*3/uL [facility] RBC (Bld) [#/Vol] 4.16 10*6/uL [facility] WBC LM Ql (Sput) 10.3 [facility] CK TOTALon 09-19-2024 CPK 18 U/L Low 24-170 [facility] Comment on above: Performed By: #### P TT #### [facility] ([facility]) [address] [place] [address] VIR CPK 18 U/L Low 24-170 [facility] Comment on above: Performed By: #### C PK #### [facility] ([facility]) [address] [place] [address] VIR CK Totalon 09-19-2024 CK [Catalytic activity/Vol] 18 U/L Low 24 - 170 U/L [facility] CK [Catalytic activity/Vol] 18 U/L Low 24 - 170 U/L [facility] Interpretation and review of laboratory results Abnormal [facility] COMPLEMENT PROFILE (C3 AND C 4)on 09-19-2024 COMPLEMENT C3 196 mg/dL High 86-184 [facility] Comment on above: Performed By: #### P TT #### [facility] ([facility]) [address] [place] [address] VIR COMPLEMENT C4 42 mg/dL Normal 16-47 [facility] Comment on above: Performed By: #### P TT #### [facility] ([facility]) [address] [place] [address] VIR COMPREHENSIVE METABOLIC PANE Antoni 09-19-2024 Albumin [Mass/Vol] 3.4 g/dL Normal 3.2-5.3 [facility] Comment on above: Performed By: #### C MP #### [facility] ([facility]) [address] [place] [address] VIR ALP [Catalytic activity/Vol] 73 U/L Normal 39-130 [facility] Comment on above: Performed By: #### C MP #### [facility] ([facility]) [address] [place] [address] VIR ALT [Catalytic activity/Vol] 4 U/L Normal <=31 [facility] Comment on above: Performed By: #### C MP #### [facility] ([facility]) [address] [place] [address] VIR Anion gap [Moles/Vol] 17 mmol/L High 5-[address] [facility] Comment on above: Performed By: #### C MP #### [facility] ([facility]) [address] [place] [address] VIR AST [Catalytic activity/Vol] 8 U/L Normal <=41 [facility] Comment on above: Performed By: #### C MP #### [facility] ([facility]) [address] [place] [address] VIR Bilirubin [Mass/Vol] 0.4 mg/dL Normal 0.3-1.2 [facility] Comment on above: Performed By: #### C MP #### [facility] ([facility]) [address] [place] [address] VIR Calcium [Mass/Vol] 9.3 mg/dL Normal 8.5-10.5 [facility] Comment on above: Performed By: #### C MP #### [facility] ([facility]) [address] [place] [address] VIR Chloride [Moles/Vol] 120 mmol/L High 98-109 [facility] Comment on above: Performed By: #### C MP #### [facility] ([facility]) [address] [place] [address] VIR CO2 [Moles/Vol] 14 mmol/L Low 22-32 [facility] Comment on above: Performed By: #### C MP #### [facility] ([facility]) [address] [place] [address] VIR Creatinine [Mass/Vol] 9.65 mg/dL High 0.40-1.[address] [facility] Comment on above: Result Comment: METH OD TRACEABLE TO IDMS STANDARD Performed By: #### C MP #### [facility] ([facility]) [address] [place] [address] VIR GFR/1.73 sq M.predicted among non-blacks MDRD (S/P/Bld) [Vol rate/Area] 4 mL/min/{1.73_m2} Low >=60 [facility] Comment on above: Result Comment: Repo rted eGFR is based on the CKD-EPI 2020 equation that does not use a race coefficient. Performed By: #### C MP #### [facility] ([facility]) [address] [place] [address] VIR Glucose [Mass/Vol] 103 mg/dL High 65-99 [facility] Comment on above: Performed By: #### C MP #### [facility] ([facility]) [address] [place] [address] VIR Potassium [Moles/Vol] 4.6 mmol/L Normal 3.5-5.[address] [facility] Comment on above: Performed By: #### C MP #### [facility] ([facility]) [address] [place] [address] VIR Protein [Mass/Vol] 6.8 g/dL Normal 6.0-8.0 [facility] Comment on above: Performed By: #### C MP #### [facility] ([facility]) [address] [place] [address] VIR Sodium [Moles/Vol] 151 mmol/L High 134-146 [facility] Comment on above: Performed By: #### C MP #### [facility] ([facility]) [address] [place] [address] VIR Urea nitrogen [Mass/Vol] 91 mg/dL High 5-23 [facility] Comment on above: Performed By: #### C MP #### [facility] ([facility]) [address] [place] [id number] VIR Complement profile (C3 AND C 4)on 09-19-2024 Complement C3 [Mass/Vol] 196 mg/dL High 86 - 184 mg/dL [facility] Complement C4 [Mass/Vol] 42 mg/dL 16 - 47 mg/dL [facility] Comprehensive metabolic pane antoni 09-19-2024 Albumin [Mass/Vol] 3.4 g/dL 3.2 - 5.3 g/dL [facility] ALP [Catalytic activity/Vol] 73 U/L 39 - 130 U/L [facility] ALT No additional P-5'-P [Catalytic activity/Vol] 4 U/L NINF - 31 U/L [facility] Anion gap [Moles/Vol] 17 mmol/L High 5 - 15 mmol/L [facility] AST [Catalytic activity/Vol] 8 U/L NINF - 41 U/L [facility] Bilirubin [Mass/Vol] 0.4 mg/dL 0.3 - 1 .2 mg/dL [facility] Calcium [Mass/Vol] 9.3 mg/dL 8.5 - 10. 5 mg/dL [facility] Chloride [Moles/Vol] 120 mmol/L High 98 - 10 9 mmol/L [facility] CO2 [Moles/Vol] 14 mmol/L Low 22 - 32 mmol/L [facility] Creatinine [Mass/Vol] 9.65 mg/dL High 0.40 - 1.00 mg/dL [facility] EGFR Non-Race Dependent 4 Low - PINF P [facility] Glucose [Mass/Vol] 103 mg/dL High 65 - 99 mg/dL [facility] Interpretation and review of laboratory results Abnormal [facility] Potassium [Moles/Vol] 4.6 mmol/L 3.5 - 5.0 mmol/L [facility] Protein [Mass/Vol] 6.8 g/dL 6.0 - 8.0 g/dL [facility] Sodium [Moles/Vol] 151 mmol/L High 134 - 146 mmol/L [facility] Urea nitrogen [Mass/Vol] 91 mg/dL High 5 - 23 mg/dL [facility] ECG 12 leadOrdered By: Charley Cohen on 09-19-2024 [facility] ELECTROLYTE PANELon 09-20-19 25 Anion gap [Moles/Vol] 11 mmol/L Normal 5-[address] [facility] Comment on above: Performed By: #### N UM #### [facility] ([facility]) [address] [place] [address] VIR Chloride [Moles/Vol] 119 mmol/L High 98-109 [facility] Comment on above: Performed By: #### N UM #### [facility] ([facility]) [address] [place] [address] VIR CO2 [Moles/Vol] 24 mmol/L Normal 22-32 [facility] Comment on above: Performed By: #### N UM #### [facility] ([facility]) [address] [place] [address] VIR Potassium [Moles/Vol] 4.3 mmol/L Normal 3.5-5.[address] [facility] Comment on above: Performed By: #### N UM #### [facility] ([facility]) [address] [place] [address] VIR Sodium [Moles/Vol] 154 mmol/L High 134-146 [facility] Comment on above: Performed By: #### N UM #### [facility] ([facility]) [address] [place] [address] VIR Anion gap [Moles/Vol] 13 mmol/L Normal 5-[address] [facility] Comment on above: Performed By: #### N UM #### [facility] ([facility]) [address] [place] [address] VIR Chloride [Moles/Vol] 118 mmol/L High 98-109 [facility] Comment on above: Performed By: #### N UM #### [facility] ([facility]) [address] [place] [address] VIR CO2 [Moles/Vol] 21 mmol/L Low 22-32 [facility] Comment on above: Performed By: #### N UM #### [facility] ([facility]) [address] [place] [address] VIR Potassium [Moles/Vol] 4.5 mmol/L Normal 3.5-5.[address] [facility] Comment on above: Performed By: #### N UM #### [facility] ([facility]) [address] [place] [address] VIR Sodium [Moles/Vol] 152 mmol/L High 134-146 [facility] Comment on above: Performed By: #### N UM #### [facility] ([facility]) [address] [place] [address] VIR Anion gap [Moles/Vol] 15 mmol/L Normal 5-[address] [facility] Comment on above: Performed By: #### P INR #### [facility] ([facility]) [address] [place] [address] VIR Chloride [Moles/Vol] 119 mmol/L High 98-109 [facility] Comment on above: Performed By: #### P INR #### [facility] ([facility]) [address] [place] [address] VIR CO2 [Moles/Vol] 22 mmol/L Normal 22-32 [facility] Comment on above: Performed By: #### P INR #### [facility] ([facility]) [address] [place] [address] VIR Potassium [Moles/Vol] 4.3 mmol/L Normal 3.5-5.[address] [facility] Comment on above: Performed By: #### P INR #### [facility] ([facility]) [address] [place] [address] VIR Sodium [Moles/Vol] 156 mmol/L High 134-146 [facility] Comment on above: Performed By: #### P INR #### [facility] [place] [facility] ([facility]) [address] [place] [address] VIR Electrolyte panelon 09-20-19 25 Anion gap [Moles/Vol] 11 mmol/L 5 - 15 mmol/L [facility] Chloride [Moles/Vol] 119 mmol/L High 98 - 10 9 mmol/L [facility] CO2 [Moles/Vol] 24 mmol/L 22 - 32 mmol/L [facility] Interpretation and review of laboratory results Abnormal [facility] Potassium [Moles/Vol] 4.3 mmol/L 3.5 - 5.0 mmol/L [facility] Sodium [Moles/Vol] 154 mmol/L High 134 - 146 mmol/L [facility] Anion gap [Moles/Vol] 13 mmol/L 5 - 15 mmol/L [facility] Chloride [Moles/Vol] 118 mmol/L High 98 - 10 9 mmol/L [facility] CO2 [Moles/Vol] 21 mmol/L Low 22 - 32 mmol/L [facility] Interpretation and review of laboratory results Abnormal [facility] Potassium [Moles/Vol] 4.5 mmol/L 3.5 - 5.0 mmol/L [facility] Sodium [Moles/Vol] 152 mmol/L High 134 - 146 mmol/L [facility] Anion gap [Moles/Vol] 15 mmol/L 5 - 15 mmol/L [facility] Chloride [Moles/Vol] 119 mmol/L High 98 - 10 9 mmol/L [facility] CO2 [Moles/Vol] 22 mmol/L 22 - 32 mmol/L [facility] Interpretation and review of laboratory results Abnormal [facility] Potassium [Moles/Vol] 4.3 mmol/L 3.5 - 5.0 mmol/L [facility] Sodium [Moles/Vol] 156 mmol/L High 134 - 146 mmol/L [facility] Extra Urineon 09-19-2024 Extra Tube Auto Resulted [facility] FERRITINon 09-19-2024 Ferritin [Mass/Vol] 130 ng/mL Normal 11-[address] [facility] Comment on above: Performed By: #### P TT #### [facility] ([facility]) [address] [place] [address] VIR FOLATEon 09-19-2024 FOLIC ACID 13.1 ng/mL Normal >5.8 [facility] Comment on above: Performed By: #### P TT #### [facility] ([facility]) [address] [place] [address] VIR Ferritinon 09-19-2024 Ferritin [Mass/Vol] 130 ng/mL 11 - 307 ng/mL [facility] Interpretation and review of laboratory results Normal [facility] Folateon 09-19-2024 Folate [Mass/Vol] 13.1 ng/mL 5.8 - PINF ng/mL [facility] Interpretation and review of laboratory results Normal [facility] GLOMERULAR BASEMENT MEMBRANE IGG ABon 09-19-2024 GBM IGG AB <^0.2 Normal <1.0 [facility] Comment on above: Performed By: #### L ACTS #### [facility] ([facility]) [address] [place] [address] VIR Gas panel (BldA)on 5 Arterial patency Wrist artery --pre arterial puncture Pass [facility] Base deficit (Bld) [Moles/Vol] -8 mmol/L Low 0.0 - 2.0 mmol/L [facility] CO2 (Bld) [Partial pressure] 29.4 mm[Hg] Low [facility] HCO3 (Bld) [Moles/Vol] 16.8 mmol/L Low 22.0 - 26.0 mmol/L [facility] Interpretation and review of laboratory results Abnormal [facility] Oxygen (Bld) [Partial pressure] 78 mm[Hg] Low [facility] Oxygen therapy source and amount [CARE] Room Air [facility] pH (Bld) 7.364 [pH] 7.350 - 7.450 [facility] Specimen site Narrative L Farhan P [facility] Specimen type Nom (Spec) ARTERIAL [facility] HEMOGLOBIN A1Con 09-19-2024 Glucose [Mass/Vol] 108 mg/dL Normal [facility] Comment on above: Performed By: #### P INR #### [facility] ([facility]) [address] [place] [address] VIR HbA1c (Bld) [Mass fraction] 5.4 % Normal 4.4-5.6 [facility] Comment on above: Result Comment: ADA Guidelines Result HgbA1c Normal : less than 5.7 % Prediabetes : 5.7 % to 6.4 % Diabetes : > 6.4 % Use with caution in patients with abnormal hemoglobin variants as the half-life of red blood cells and in vivo glycation rates are affected. Performed By: #### P INR #### [facility] ([facility]) [address] [place] [address] VIR Hemoglobin A1con 09-19-2024 Average glucose Estimated from glycated hemoglobin (Bld) [Mass/Vol] 108 mg/dL [facility] HbA1c (Bld) [Mass fraction] 5.4 % 4.4 - 5.6 % [facility] IRON AND TIBCon 09-19-2024 Iron [Mass/Vol] 56 ug/dL Normal 50-170 [facility] Comment on above: Performed By: #### P TT #### [facility] ([facility]) [address] [place] [address] VIR IRON BINDING 309 ug/dL Normal 250-425 [facility] Comment on above: Performed By: #### P TT #### [facility] ([facility]) [address] [place] [address] VIR IRON SATURATION 18 % SATURATION Normal 15-50 [facility] Comment on above: Performed By: #### P TT #### [facility] ([facility]) [address] [place] [address] VIR Transferrin [Mass/Vol] 221 mg/dL Normal 168-336 Pr [facility] Comment on above: Performed By: #### P TT #### [facility] ([facility]) [address] [place] [address] VIR Iron and TIBCon 09-19-2024 Interpretation and review of laboratory results Normal [facility] Iron [Mass/Vol] 56 ug/dL 50 - 170 ug/dL [facility] Iron binding capacity [Mass/Vol] 309 ug/dL 250 - 425 ug/dL [facility] Iron saturation [Mass fraction] 18 [facility] Transferrin [Mass or moles/Vol] 221 mg/dL 168 - 336 mg/dL [facility] LACTATE W/ REFLEXon 09-20-19 25 LACTATE W/REFLEX 0.7 mmol/L Normal 0.4-2.0 [facility] Comment on above: Order Comment: Resul t did not trigger repeat Lactate, re-order if needed. Performed By: #### L ACTS #### [facility] ([facility]) [address] [place] [address] VIR Laboratory - Chemistry and C hemistry - challengeon 09-19-2024 Creatinine (U) [Mass/Vol] 83.54 mg/dL [facility] Lactate w/ Reflexon 09-20-19 25 Interpretation and review of laboratory results Normal [facility] Lactate (P nadine) [Moles/Vol] 0.7 mmol/L 0.4 - 2.0 mmol/L [facility] MAGNESIUMon 09-19-2024 Magnesium [Mass/Vol] 2.4 mg/dL Normal 1.8-2.6 [facility] Comment on above: Performed By: #### P INR #### [facility] ([facility]) [address] [place] [address] VIR MYELOPEROXIDASE ABon 025 MYELOPEROXIDASE AB <^0.2 Normal <1.0 [facility] Comment on above: Performed By: #### L ACTS #### [facility] ([facility]) [address] [place] [address] VIR MYOGLOBIN, SERUMon 5 SERUM MYOGLOBIN 33.4 ng/mL Normal 14.3-65.8 [facility] Comment on above: Performed By: #### P INR #### [facility] ([facility]) [address] [place] [address] VIR Magnesiumon 09-19-2024 Magnesium [Mass/Vol] 2.4 mg/dL 1.8 - 2 .6 mg/dL [facility] Myoglobin, serumon 5 Interpretation and review of laboratory results Normal [facility] Myoglobin [Mass/Vol] 33.4 ng/mL 14.3 - 65.8 ng/mL [facility] No Panel Informationon 09-19 Interpretation and review of laboratory results Normal [facility] Interpretation and review of laboratory results Abnormal [facility] PHOSPHORUSon 09-19-2024 Phosphate [Mass/Vol] 5.8 mg/dL High 2.4-4.9 [facility] Comment on above: Performed By: #### P INR #### [facility] ([facility]) [address] [place] [address] VIR POCT NURSING URINE MACROSCOP IC UAon 09-19-2024 BILIRUBIN SORIN Negative Normal Negative [facility] Comment on above: Performed By: #### N UM #### [facility] ([facility]) [address] [place] [address] VIR BLOOD/HGB SORIN Large Abnormal Negative [facility] Comment on above: Performed By: #### N UM #### [facility] ([facility]) [address] [place] [address] VIR GLUCOSE SORIN Negative Normal Negative [facility] Comment on above: Performed By: #### N UM #### [facility] ([facility]) [address] [place] [address] VIR KETONES SORIN Negative Normal Negative [facility] Comment on above: Performed By: #### N UM #### [facility] ([facility]) [address] [place] [address] VIR LEUKOCYTE ESTERASE SORIN Negative Normal Negative Pr [facility] Comment on above: Performed By: #### N UM #### [facility] ([facility]) [address] [place] [address] VIR NITRITE SORIN Negative Normal Negative [facility] Comment on above: Performed By: #### N UM #### [facility] ([facility]) [address] [place] [address] VIR PH SORIN 5.5 Normal 5.0, 6.0, 6.5, 7.0, 7.5, 8.0, 8.5, 5.5 [facility] Comment on above: Performed By: #### N UM #### [facility] ([facility]) [address] [place] [address] VIR PROTEIN SORNI 100 mg/dL Abnormal Negative [facility] Comment on above: Performed By: #### N UM #### [facility] ([facility]) [address] [place] [address] VIR SPECIFIC GRAVITY SORIN 1.020 Normal 1.010, 1.015, 1.020, 1.025 [facility] Comment on above: Performed By: #### N UM #### [facility] ([facility]) [address] [place] [address] VIR UROBILINOGEN SORIN 0.2 E.U./dL Normal 0.2 E.U./dL, 1.0 E.U./dL [facility] Comment on above: Performed By: #### N UM #### [facility] ([facility]) [address] [place] [address] VIR POCT Nursing Urine Macroscop ic UAon 09-19-2024 Bilirubin Ql (U) Negative Negative [facility] Glucose [Mass/Vol] Negative Negative [facility] Hemoglobin Ql (U) Large Abnormal Negative [facility] Interpretation and review of laboratory results Abnormal [facility] Ketones (U) [Mass/Vol] Negative Negative Pr [facility] Leukocyte esterase Test strip Ql (U) Negative Negative [facility] Nitrite Ql (U) Negative Negative [facility] pH (U) 5.5 [pH] 5.0, 6.0, 6.5, 7.0, 7.5, 8.0, 8.5, 5.5 [facility] Protein Ql (U) 100 mg/dL Abnormal Negative [facility] Specific gravity (U) [Rel density] 1.020 1.010, 1.015, 1.020, 1.025 [facility] Urobilinogen Qn (U) [id number] {Mirza'U}/dL 0.2 E.U./dL, 1.0 E.U./dL [facility] PROCALCITONINon 09-19-2024 PROCALCITONIN 0.12 ng/mL High <0.05 [facility] Comment on above: Order Comment: <0.50 ng/mL - Low risk of severe sepsis and/or septic shock.<2.00 ng/mL - Recommend retesting within 6-24 hours.>2.00 ng/mL - High risk of sepsis and/or septic shock. Performed By: #### P TT #### [facility] ([facility]) [address] [place] [address] VIR PROTEIN CREAT RATIOon 2024 U/PRO/PMP RATIO CALC 1.62 High <=0.20 [facility] Comment on above: Order Comment: Nephr otic Syndrome is associated with ratios >3.5 Performed By: #### P INR #### [facility] ([facility]) [address] [place] [address] VIR URINE PROTEIN, RANDOM (MG/L) 1350 mg/L High <120 [facility] Comment on above: Order Comment: Nephr otic Syndrome is associated with ratios >3.5 Performed By: #### P INR #### [facility] ([facility]) [address] [place] [address] VIR PROTEINASE 3 AB PR3on 2024 PROTEINASE 3 IGG AB <^0.2 Normal <1.0 [facility] Comment on above: Performed By: #### L ACTS #### [facility] ([facility]) [address] [place] [address] VIR PROTIME AND INRon 09-19-2024 INR 1.2 Normal 0.9-1.2 [facility] Comment on above: Performed By: #### P INR #### [facility] ([facility]) [address] [place] [address] VIR PT Coag (PPP) [Time] 14.0 s High 9.8-13.2 [facility] Comment on above: Performed By: #### P INR #### [facility] ([facility]) [address] [place] [address] VIR Phosphoruson 09-19-2024 Phosphate [Mass/Vol] 5.8 mg/dL High 2.4 - 4 .9 mg/dL [facility] Procalcitoninon 09-19-2024 Procalcitonin IA [Mass/Vol] 0.12 ng/mL High NINF - 0.05 ng/mL [facility] Protein creat ratioon 2024 Interpretation and review of laboratory results Abnormal [facility] Protein (U) [Mass/Vol] 1350 mg/L High NINF - 120 mg/L [facility] Protein/Creatinine (U) [Ratio] 1.62 High NINF - 0.20 [facility] Protime & INRon 09-19-2024 INR Coag (Platelet poor plasma or blood) [Relative time] 1.2 0.9 - 1.2 [facility] Interpretation and review of laboratory results Abnormal [facility] PT Coag (PPP) [Time] 14 s High [facility] SODIUM, URINE, RANDOMon Sodium (U) [Moles/Vol] 69 mmol/L Normal Pr [facility] Comment on above: Performed By: #### U LUDMILA #### [facility] ([facility]) [address] [place] [address] VIR Sodium, urine, randomon Sodium (U) [Moles/Vol] 69 mmol/L Pr [facility] THYROID PROFILE INCLUDES TSH FT4on 09-19-2024 Free T4 [Mass/Vol] 0.86 ng/dL Normal 0.61-1.60 [facility] Comment on above: Performed By: #### P TT #### [facility] ([facility]) [address] [place] [address] VIR TSH 2.80 uIU/mL Normal 0.49-4.67 [facility] Comment on above: Performed By: #### P TT #### [facility] ([facility]) [address] [place] [address] VIR TROP I, HIGH SENSITIVITY 1 H OURon 09-19-2024 TROPONIN I, HIGH SENSITIVITY 10 ng/L Normal <16 [facility] Comment on above: Performed By: #### T NIHS1 #### [facility] ([facility]) [address] [place] [address] VIR TROPONIN I, HIGH SENSITIVITY 0 HOURon 09-19-2024 TROPONIN I, HIGH SENSITIVITY 11 ng/L Normal <16 [facility] Comment on above: Performed By: #### P INR #### [facility] ([facility]) [address] [place] [address] VIR Thyroid profile includes TSH FT4on 09-19-2024 Free T4 [Mass/Vol] 0.86 ng/dL 0.61 - 1.60 ng/dL [facility] TSH Qn 2.8 m[IU]/L [facility] Troponin I, High Sensitivity 0 Houron 09-19-2024 Interpretation and review of laboratory results Normal [facility] Troponin I.cardiac High sensitivity method [Mass/Vol] 11 ng/L NINF - 16 ng/L [facility] Troponin I, High Sensitivity 1 Houron 09-19-2024 Interpretation and review of laboratory results Normal [facility] Troponin I.cardiac High sensitivity method [Mass/Vol] 10 ng/L NINF - 16 ng/L [facility] URINALYSISon 09-19-2024 Bilirubin Ql (U) Negative Normal Negative [facility] Comment on above: Order Comment: Urine received without preservative. Delays in transport may affect results. Interpret with caution. A clinical correlation is recommended. Performed By: #### P TT #### [facility] ([facility]) [address] [place] [address] VIR BLOOD/HGB Moderate Abnormal Negative [facility] Comment on above: Order Comment: Urine received without preservative. Delays in transport may affect results. Interpret with caution. A clinical correlation is recommended. Performed By: #### P TT #### [facility] ([facility]) [address] [place] [address] VIR Color (U) Colorless Normal Yellow, Colorless [facility] Comment on above: Order Comment: Urine received without preservative. Delays in transport may affect results. Interpret with caution. A clinical correlation is recommended. Performed By: #### P TT #### [facility] ([facility]) [address] [place] [address] VIR Glucose Ql (U) Negative Normal Negative [facility] Comment on above: Order Comment: Urine received without preservative. Delays in transport may affect results. Interpret with caution. A clinical correlation is recommended. Performed By: #### P TT #### [facility] ([facility]) [address] [place] [address] VIR Ketones Ql (U) Negative Normal Negative [facility] Comment on above: Order Comment: Urine received without preservative. Delays in transport may affect results. Interpret with caution. A clinical correlation is recommended. Performed By: #### P TT #### [facility] ([facility]) [address] [place] [address] VIR Leukocyte esterase Test strip Ql (U) Small Abnormal Negative [facility] Comment on above: Order Comment: Urine received without preservative. Delays in transport may affect results. Interpret with caution. A clinical correlation is recommended. Performed By: #### P TT #### [facility] ([facility]) [address] [place] [address] VIR MUCOUS Present Abnormal None [facility] Comment on above: Order Comment: Urine received without preservative. Delays in transport may affect results. Interpret with caution. A clinical correlation is recommended. Performed By: #### P TT #### [facility] ([facility]) [address] [place] [address] VIR Nitrite Ql (U) Negative Normal Negative [facility] Comment on above: Order Comment: Urine received without preservative. Delays in transport may affect results. Interpret with caution. A clinical correlation is recommended. Performed By: #### P TT #### [facility] ([facility]) [address] [place] [address] VIR PH,URINE 5.5 Normal 5.0-8.5 [facility] Comment on above: Order Comment: Urine received without preservative. Delays in transport may affect results. Interpret with caution. A clinical correlation is recommended. Performed By: #### P TT #### [facility] ([facility]) [address] [place] [address] VIR Protein Ql (U) 70 mg/dL Abnormal Negative [facility] Comment on above: Order Comment: Urine received without preservative. Delays in transport may affect results. Interpret with caution. A clinical correlation is recommended. Performed By: #### P TT #### [facility] ([facility]) [address] [place] [address] VIR R.B.CELLS 17 High 0-5 [facility] Comment on above: Order Comment: Urine received without preservative. Delays in transport may affect results. Interpret with caution. A clinical correlation is recommended. Performed By: #### P TT #### [facility] ([facility]) [address] [place] [address] VIR Specific gravity (U) [Rel density] 1.013 Normal 1.003-1.03 5 [facility] Comment on above: Order Comment: Urine received without preservative. Delays in transport may affect results. Interpret with caution. A clinical correlation is recommended. Performed By: #### P TT #### [facility] ([facility]) [address] [place] [address] VIR SQUAMOUS EPITHELIUM 1 Normal 0-5 [facility] Comment on above: Order Comment: Urine received without preservative. Delays in transport may affect results. Interpret with caution. A clinical correlation is recommended. Performed By: #### P TT #### [facility] ([facility]) [address] [place] [address] VIR TURBIDITY Hazy Abnormal Clear [facility] Comment on above: Order Comment: Urine received without preservative. Delays in transport may affect results. Interpret with caution. A clinical correlation is recommended. Performed By: #### P TT #### [facility] ([facility]) [address] [place] [address] VIR UROBILINOGEN <1.1 eu/dL Normal <1.1 eu/dL [facility] Comment on above: Order Comment: Urine received without preservative. Delays in transport may affect results. Interpret with caution. A clinical correlation is recommended. Performed By: #### P TT #### [facility] ([facility]) [address] [place] [address] VIR W.B.CELLS 39 High 0-5 [facility] Comment on above: Order Comment: Urine received without preservative. Delays in transport may affect results. Interpret with caution. A clinical correlation is recommended. Performed By: #### P TT #### [facility] ([facility]) [address] [place] [address] VIR URINE CREATININE,RANDOMon 05 -03-2025 URINE CREATININE,RDM 83.54 mg/dL Normal [facility] Comment on above: Performed By: #### P INR #### [facility] ([facility]) [address] [place] [address] VIR Order Comment: Nephr otic Syndrome is [...] Varner MD on 09/19/2024 6:46 AM Normal [facility] US Retroperitoneumon 025 SECTRAPACS [facility] Radiology Study observation (narrative) [facility] US RetroperitoneumOrdered By : Mao Varner on 09-19-2024 [facility] Work Phone: UrinalysisOrdered By: Aayush Ewing on 09-19-2024 Bilirubin Ql (U) Negative Negative [facility] Color (U) Colorless Yellow, Colorless [facility] Epithelial cells Auto (Urine sed) [#/Area] 1 0 - 5 [facility] Glucose (U) [Mass/Vol] Negative Negative Pr [facility] Hemoglobin Auto test strip Ql (U) Moderate Abnormal Negative [facility] Interpretation and review of laboratory results Abnormal [facility] Ketones (U) [Mass/Vol] Negative Negative Pr [facility] Leukocyte esterase Auto test strip Ql (U) Small Abnormal Negative [facility] Mucus Ql (Urine sed) Present Abnormal None [facility] Nitrite Auto test strip Ql (U) Negative Negative [facility] pH (U) 5.5 [pH] 5.0 - 8.5 [facility] Protein (U) [Mass/Vol] 70 mg/dL Abnormal Negative [facility] RBC Auto (Urine sed) [#/Area] 17 High 0 - 5 [facility] Specific gravity Refractometry automated (U) [Rel density] 1.013 1.003 - 1.035 [facility] Turbidity Ql (U) Hazy Abnormal Clear [facility] Urobilinogen Qn (U) {Mirza'U}/dL <1.1 eu/dL P [facility] WBC Auto (Urine sed) [#/Area] 39 High 0 - 5 [facility] VITAMIN B12on 09-19-2024 Cobalamin (Vitamin B12) [Mass/Vol] 517 pg/mL Normal 180-914 [facility] Comment on above: Performed By: #### P TT #### [facility] ([facility]) [address] [place] [address] VIR Vitamin B12on 09-19-2024 Cobalamin (Vitamin B12) [Mass/Vol] 517 pg/mL 180 - 914 pg/mL [facility] Interpretation and review of laboratory results Normal [facility] ALL CBC WITH AUTO DIFFon BASOPHILS ABSOLUTE AUTO 0.1 N [facility] Basophils/100 WBC (Bld) 0.7 % 0.2 - 2.0 % [facility] Eosinophils/100 WBC (Bld) 2.3 % 0.9 - 7.0 % [facility] Erythrocyte distribution width (RBC) [Ratio] 14.9 % 11.0 - 15.0 % [facility] Hematocrit (Bld) [Volume fraction] 37.9 % 36.0 - 48.0 % [facility] Hemoglobin (Bld) [Mass/Vol] 11.7 g/dL Low 12.0 - 16.0 g/dL [facility] IMMATURE GRANULOCYTES ABS AUTO 0.05 High [facility] Immature granulocytes/100 WBC (Bld) 0.4 % 0.0 - 0.5 % [facility] Interpretation and review of laboratory results Abnormal [facility] LYMPHOCYTES ABSOLUTE AUTO 0.8 Low [facility] Lymphocytes/100 WBC (Bld) 6.3 % Low 20.5 - 60.0 % [facility] MCH (RBC) [Entitic mass] 27.1 pg 26. 7 - 34.0 pg [facility] MCHC (RBC) [Mass/Vol] 30.9 g/dL 29.9 - 35.2 g/dL [facility] MCV (RBC) [Entitic vol] 87.7 fL 81.0 - 99.0 fL [facility] MONOCYTES ABSOLUTE AUTO 1 High N [facility] Monocytes/100 WBC (Bld) 7.5 % 1.7 - 12.0 % [facility] NEUTROPHILS ABSOLUTE AUTO 10.7 High [facility] Neutrophils/100 WBC (Bld) 82.8 % High 43.0 - 75.0 % [facility] Platelet mean volume (Bld) [Entitic vol] 11.5 fL 9.5 - 13.5 fL [facility] TBH EO # 0.3 [facility] TBH PLT 218 [facility] TB RBC 4.32 [facility] WBC 12.9 High [facility] CBC AND AUTO DIFFon 09-02-19 25 ABSOLUTE BASOPHIL 0.1 X10E9/L Normal 0.0-0.[address] [facility] Comment on above: Performed By: #### C BCA, CMP, 2157-6, 72803-6, 35976-6, 36538-2, PINR, 80358-2, 2639-3 #### [facility] ([id number]) [address] [place] [address], [place] [address] ABSOLUTE NEUTROPHIL 7.5 X10E9/L High 1.5-6.6 [facility] Comment on above: Performed By: #### C BCA, CMP, 2156-6, 90282-3, 49135-6, 73086-4, PINR, 89118-9, 2639-3 #### [facility] ([id number]) [address] [place] [address] Basophils/100 WBC (Bld) 0.7 % Normal [facility] Comment on above: Performed By: #### C BCA, CMP, 2156-6, 70504-9, 75750-0, 63024-5, PINR, 04690-6, 2639-3 #### [facility] ([id number]) [address] [place] [address] Eosinophils (Bld) [#/Vol] 0.1 10*3/uL Normal 0.0-0.4 [facility] Comment on above: Performed By: #### C BCA, CMP, 2156-6, 92084-7, 99817-7, 83928-3, PINR, 79221-2, 2639-3 #### [facility] ([id number]) [address] [place] [address] Eosinophils/100 WBC (Bld) 1.3 % Normal [facility] Comment on above: Performed By: #### C BCA, CMP, 2156-6, 02838-6, 01226-5, 14060-0, PINR, 23804-8, 2639-3 #### [facility] ([id number]) [address] [place] [address] Erythrocyte distribution width (RBC) [Ratio] 15.4 % High 11.5-15.0 [facility] Comment on above: Performed By: #### C BCA, CMP, 2156-6, 17527-2, 19307-1, 57504-9, PINR, 38022-6, 2639-3 #### [facility] ([id number]) [address] [place] [address] Hematocrit (Bld) [Volume fraction] 36.0 % Normal 35-47 [facility] Comment on above: Performed By: #### C BCA, CMP, 7-6, 15683-7, 79219-4, 09279-6, PINR, 93108-4, 2639-3 #### [facility] ([id number]) [address] [place] [address] Hemoglobin (Bld) [Mass/Vol] 12.2 g/dL Normal 11.7-15.5 [facility] Comment on above: Performed By: #### C BCA, CMP, 2156-6, 15168-5, 31730-3, 00077-7, PINR, 55709-1, 2639-3 #### [facility] ([id number]) [address] [place] [address] Lymphocytes (Bld) [#/Vol] 0.9 10*3/uL Low 1.0-3.5 [facility] Comment on above: Performed By: #### C BCA, CMP, 2156-6, 77453-6, 14870-6, 75347-4, PINR, 74692-6, 2639-3 #### [facility] ([id number]) [address] [place] [address] Lymphocytes/100 WBC (Bld) 9.4 % Normal [facility] Comment on above: Performed By: #### C BCA, CMP, 2156-6, 85436-4, 51773-2, 48949-0, PINR, 62769-7, 2639-3 #### [facility] ([id number]) [address] [place] [address] MCH (RBC) [Entitic mass] 28.0 pg Normal 27-34 [facility] Comment on above: Performed By: #### C BCA, CMP, 2156-6, 79400-8, 48078-5, 21334-5, PINR, 01519-8, 2639-3 #### [facility] ([id number]) [address] [place] [address] MCHC (RBC) [Mass/Vol] 34.0 g/dL Normal 32-36 [facility] Comment on above: Performed By: #### C BCA, CMP, 2156-, 95554-4, 68519-8, 18096-1, PINR, 99352-0, 2639-3 #### [facility] ([id number]) [address] [place] [address] MCV (RBC) [Entitic vol] 82 fL Normal 80-100 P [facility] Comment on above: Performed By: #### C BCA, CMP, 2156-10, 77406-9, 34699-9, 08033-7, PINR, 27303-1, 2639-3 #### [facility] ([id number]) [address] [place] [address] Monocytes (Bld) [#/Vol] 1.4 10*3/uL High 0-0.9 [facility] Comment on above: Performed By: #### C BCA, CMP, 2156-10, 55769-6, 87865-8, 77787-7, PINR, 33564-9, 2639-3 #### [facility] ([id number]) [address] [place] [address] Monocytes/100 WBC (Bld) 13.8 % Normal [facility] Comment on above: Performed By: #### C BCA, CMP, 2156-6, 36055-6, 31825-0, 38032-1, PINR, 14266-6, 2639-3 #### [facility] ([id number]) [address] [place] [address] Neutrophils/100 WBC (Bld) 74.8 % Normal [facility] Comment on above: Performed By: #### C BCA, CMP, 2156-, 46143-9, 07685-5, 98334-8, PINR, 94929-9, 2639-3 #### [facility] ([id number]) [address] [place] [address] 67755 Platelet mean volume (Bld) [Entitic vol] 9.4 fL Normal 7-12 [facility] Comment on above: Performed By: #### C BCA, CMP, 2156-10, 35410-1, 09533-0, 66396-9, PINR, 54887-9, 2639-3 #### [facility] ([id number]) [address] [place] [address] 35692 Platelets (Bld) [#/Vol] 215 10*3/uL Normal 150-450 [facility] Comment on above: Performed By: #### C BCA, CMP, 2156-10, 38556-4, 19357-3, 56206-5, PINR, 66249-0, 2639-3 #### [facility] ([id number]) [address] [place] [address] 84621 RBC COUNT 4.36 X10E12/L Normal 3.80-5.20 [facility] Comment on above: Performed By: #### C BCA, CMP, 2156-10, 92049-2, 78380-9, 24373-4, PINR, 93086-4, 2639-3 #### [facility] ([id number]) [address] [place] [address] 59338 WBC (Bld) [#/Vol] 10.1 10*3/uL Normal 4.0-11.0 [facility] Comment on above: Performed By: #### C BCA, CMP, 2156-10, 99107-8, 30891-5, 50299-8, PINR, 18002-0, 2639-3 #### [facility] ([id number]) [address] [place] [address] 54688 CK [Catalytic activity/Vol]o n 09-01-2024 CPK 188 U/L High 24-170 [facility] Comment on above: Performed By: #### C BCA, CMP, 2156-6, 32883-8, 06525-4, 80669-7, PINR, 89254-0, 2639-3 #### [facility] ([id number]) [address] [place] [address] 90172 COMPREHENSIVE METABOLIC PANE Antoni 09-01-2024 Albumin [Mass/Vol] 2.6 g/dL Low 3.2-5.3 [facility] Comment on above: Performed By: #### C BCA, CMP, 2156-6, 65327-4, 32757-2, 65916-6, PINR, 49809-3, 2639-3 #### [facility] ([id number]) [address] [place] [address] 27493 ALP [Catalytic activity/Vol] 101 U/L Normal 39-130 [facility] Comment on above: Performed By: #### C BCA, CMP, 2156-6, 78987-4, 54836-4, 14760-1, PINR, 12972-2, 2639-3 #### [facility] ([id number]) [address] [place] [address] 13050 ALT [Catalytic activity/Vol] 34 U/L High 0-31 [facility] Comment on above: Performed By: #### C BCA, CMP, 2156-6, 20771-5, 84465-7, 15182-1, PINR, 98619-7, 2639-3 #### [facility] ([id number]) [address] [place] [address] 24676 Anion gap [Moles/Vol] 11 mmol/L Normal 5-15 [facility] Comment on above: Performed By: #### C BCA, CMP, 7-6, 02113-0, 48123-3, 79607-7, PINR, 14201-7, 2639-3 #### [facility] ([id number]) [address] [place] [address] 00868 AST [Catalytic activity/Vol] 32 U/L Normal 0-41 [facility] Comment on above: Performed By: #### C BCA, CMP, 2156-6, 92595-1, 34333-0, 61838-4, PINR, 94676-3, 2639-3 #### [facility] ([id number]) [address] [place] [address] 42322 Bilirubin [Mass/Vol] 0.5 mg/dL Normal 0.3-1.2 [facility] Comment on above: Performed By: #### C BCA, CMP, 2156-6, 69048-6, 16770-0, 18081-4, PINR, 40308-9, 2639-3 #### [facility] ([id number]) [address] [place] [address] 72647 Calcium [Mass/Vol] 8.5 mg/dL Normal 8.5-10.5 [facility] Comment on above: Performed By: #### C BCA, CMP, 2156-6, 03811-1, 17427-7, 32615-4, PINR, 53538-7, 2639-3 #### [facility] ([id number]) [address] [place] [address] 96971 Chloride [Moles/Vol] 106 mmol/L Normal 98-109 [facility] Comment on above: Performed By: #### C BCA, CMP, 2156-6, 37140-9, 41474-2, 34233-8, PINR, 51429-5, 2639-3 #### [facility] ([id number]) [address] [place] [address] CO2 [Moles/Vol] 24 mmol/L Normal 22-32 [facility] Comment on above: Performed By: #### C BCA, CMP, 2156-6, 93336-3, 66052-7, 16393-5, PINR, 98339-7, 2639-3 #### [facility] ([id number]) [address] [place] [address] 55516 Creatinine [Mass/Vol] 0.87 mg/dL Normal 0.40-1.00 [facility] Comment on above: Result Comment: METH OD TRACEABLE TO IDMS STANDARD Performed By: #### C BCA, CMP, 2156-, 35861-0, 50299-3, 04061-3, PINR, 74119-5, 2639-3 #### [facility] ([id number]) [address] [place] [address] 00647 GFR/1.73 sq M.predicted among non-blacks MDRD (S/P/Bld) [Vol rate/Area] 78 mL/min/{1.73_m2} Normal >59 [facility] Comment on above: Result Comment: Reported eGFR is based on the CKD-EPI 1 equation that does not use a race coefficient. Performed By: #### C BCA, CMP, 2156-6, 98530-9, 10493-8, 33591-2, PINR, 19868-6, 2639-3 #### [facility] ([id number]) [address] [place] [address] 85618 Glucose [Mass/Vol] 108 mg/dL High 65-99 [facility] Comment on above: Performed By: #### C BCA, CMP, 2156-6, 76275-8, 28217-0, 55434-5, PINR, 41371-6, 2639-3 #### [facility] ([id number]) [address] [place] [address] 53407 Potassium [Moles/Vol] 4.1 mmol/L Normal 3.5-5.0 [facility] Comment on above: Performed By: #### C BCA, CMP, 2156-, 94651-6, 17251-9, 98177-6, PINR, 91902-9, 2639-3 #### [facility] ([id number]) [address] [place] [address] 61324 Protein [Mass/Vol] 6.6 g/dL Normal 6.0-8.0 [facility] Comment on above: Performed By: #### C BCA, CMP, 2156-10, 05638-7, 01909-2, 69817-7, PINR, 76019-5, 2639-3 #### [facility] ([id number]) [address] [place] [address] 43553 Sodium [Moles/Vol] 141 mmol/L Normal 134-146 [facility] Comment on above: Performed By: #### C BCA, CMP, 2156-10, 37304-9, 17293-2, 27682-9, PINR, 53000-3, 2639-3 #### [facility] ([id number]) [address] [place] [address] 03620 Urea nitrogen [Mass/Vol] 12 mg/dL Normal 5-23 [facility] Comment on above: Performed By: #### C BCA, CMP, 2156-10, 89121-9, 12246-2, 23408-3, PINR, 39862-5, 2639-3 #### [facility] ([id number]) [address] [place] [address] 17235 MAGNESIUMon 09-01-2024 Magnesium [Mass/Vol] 2.0 mg/dL Normal 1.8-2.6 [facility] Comment on above: Performed By: #### C BCA, CMP, 2156-10, 53858-1, 41199-2, 18120-6, PINR, 45444-2, 2639-3 #### [facility] ([id number]) [address] [place] [address] 69890 Myoglobin [Mass/Vol]on 09-01 SERUM MYOGLOBIN 53.7 ng/mL Normal 14.3-65.8 [facility] Comment on above: Performed By: #### C BCA, CMP, 2156-, 76460-4, 48300-0, 43685-1, PINR, 91818-7, 2639-3 #### [facility] ([id number]) [address] [place] [address] 34092 CBC AND AUTO DIFFon 09-01-19 25 ABSOLUTE BASOPHIL 0.1 X10E9/L Normal 0.0-0.2 [facility] Comment on above: Performed By: #### C BCA, CMP, 2156-10, , 49186-1, 16463-9, PINR, 19237-7, 2639-3 #### [facility] ([id number]) [address] [place] [address] 48180 ABSOLUTE NEUTROPHIL 7.4 X10E9/L High 1.5-6.6 [facility] Comment on above: Performed By: #### C BCA, CMP, 2156-10, 11773-1, 18743-7, 46457-7, PINR, 45718-1, 2639-3 #### [facility] ([id number]) [address] [place] [address] 52105 Basophils/100 WBC (Bld) 0.9 % Normal [facility] Comment on above: Performed By: #### C BCA, CMP, 2156-, 04831-2, 60177-1, 16965-3, PINR, 04887-8, 2639-3 #### [facility] ([id number]) [address] [place] [address] Eosinophils (Bld) [#/Vol] 0.1 10*3/uL Normal 0.0-0.4 [facility] Comment on above: Performed By: #### C BCA, CMP, 2156-6, 73604-1, 92313-7, 95882-5, PINR, 79020-9, 2639-3 #### [facility] ([id number]) [address] [place] [address] 08915 Eosinophils/100 WBC (Bld) 1.4 % Normal [facility] Comment on above: Performed By: #### C BCA, CMP, 2156-, 70821-3, 69478-6, 05635-9, PINR, 10162-2, 2639-3 #### [facility] ([id number]) [address] [place] [address] 63607 Erythrocyte distribution width (RBC) [Ratio] 15.8 % High 11.5-15.0 [facility] Comment on above: Performed By: #### C BCA, CMP, 2156-6, 33446-7, 27101-6, 27600-2, PINR, 32232-3, 2639-3 #### [facility] ([id number]) [address] [place] [address] 80555 Hematocrit (Bld) [Volume fraction] 35.7 % Normal 35-47 [facility] Comment on above: Performed By: #### C BCA, CMP, 2156-6, 11357-3, 18947-6, 34373-5, PINR, 09055-8, 2639-3 #### [facility] ([id number]) [address] [place] [address] 57943 Hemoglobin (Bld) [Mass/Vol] 12.1 g/dL Normal 11.7-15.5 [facility] Comment on above: Performed By: #### C BCA, CMP, 2156-6, 02949-1, 79732-6, 63229-0, PINR, 72437-8, 2639-3 #### [facility] ([id number]) [address] [place] [address] 94375 Lymphocytes (Bld) [#/Vol] 0.8 10*3/uL Low 1.0-3.5 [facility] Comment on above: Performed By: #### C BCA, CMP, 2156-, 19932-5, 47231-5, 73906-5, PINR, 34954-7, 2639-3 #### [facility] ([id number]) [address] [place] [address] 65124 Lymphocytes/100 WBC (Bld) 8.5 % Normal [facility] Comment on above: Performed By: #### C BCA, CMP, 2156-, 29503-1, 01227-4, 84900-9, PINR, 90118-2, 2639-3 #### [facility] ([id number]) [address] [place] [address] 77305 MCH (RBC) [Entitic mass] 28.1 pg Normal 27-34 [facility] Comment on above: Performed By: #### C BCA, CMP, 2156-, 87525-9, 79596-1, 26904-0, PINR, 51610-3, 2639-3 #### [facility] ([id number]) [address] [place] [address] 62753 MCHC (RBC) [Mass/Vol] 33.9 g/dL Normal 32-36 [facility] Comment on above: Performed By: #### C BCA, CMP, 2156-6, 72070-9, 31554-7, 29573-5, PINR, 54171-0, 2639-3 #### [facility] ([id number]) [address] [place] [address] 54085 MCV (RBC) [Entitic vol] 83 fL Normal 80-100 [facility] Comment on above: Performed By: #### C BCA, CMP, 2157-6, 56304-9, 07832-2, 19158-4, PINR, 50301-0, 2639-3 #### [facility] ([id number]) [address] [place] [address] 07757 Monocytes (Bld) [#/Vol] 1.4 10*3/uL High 0-0.9 [facility] Comment on above: Performed By: #### C BCA, CMP, 7-6, 79404-1, 09642-7, 74302-4, PINR, 64952-4, 2639-3 #### [facility] ([id number]) [address] [place] [address] 89233 Monocytes/100 WBC (Bld) 14.1 % Normal [facility] Comment on above: Performed By: #### C BCA, CMP, 7-6, 33326-3, 67404-7, 19523-1, PINR, 07353-6, 2639-3 #### [facility] ([id number]) [address] [place] [address] [place] [address] Neutrophils/100 WBC (Bld) 75.1 % Normal [facility] Comment on above: Performed By: #### C BCA, CMP, 7-6, 29562-5, 11173-3, 09937-0, PINR, 51058-8, 2639-3 #### [facility] ([id number]) [address] [place] [address] 40939 Platelet mean volume (Bld) [Entitic vol] 10.0 fL Normal 7-12 [facility] Comment on above: Performed By: #### C BCA, CMP, 2157-6, 72389-2, 09771-3, 37716-9, PINR, 60183-0, 2639-3 #### [facility] ([id number]) [address] [place] [address] 10561 Platelets (Bld) [#/Vol] 206 10*3/uL Normal 150-450 [facility] Comment on above: Performed By: #### C BCA, CMP, 7-6, 52506-8, 68666-4, 12547-3, PINR, 13573-8, 2639-3 #### [facility] ([id number]) [address] [place] [address] 09758 RBC COUNT 4.31 X10E12/L Normal 3.80-5.20 [facility] Comment on above: Performed By: #### C BCA, CMP, 2156-6, 49946-5, 71326-5, 29738-7, PINR, 68084-5, 2639-3 #### [facility] ([id number]) [address] [place] [address] 60466 WBC (Bld) [#/Vol] 9.9 10*3/uL Normal 4.0-11.0 [facility] Comment on above: Performed By: #### C BCA, CMP, 2156-6, 40305-0, 63351-5, 39948-2, PINR, 83349-1, 2639-3 #### [facility] ([id number]) [address] [place] [address] 59125 CK [Catalytic activity/Vol]o n 08-31-2024 CPK 324 U/L High 24-170 [facility] Comment on above: Performed By: #### C BCA, CMP, 2156-6, 11977-5, 59342-7, 01406-8, PINR, 61040-8, 2639-3 #### [facility] ([id number]) [address] [place] [address] 29644 CPK 405 U/L High 24-170 [facility] Comment on above: Performed By: #### C BCA, CMP, 2157-6, 74876-8, 43383-9, 77156-8, PINR, 36390-9, 2639-3 #### [facility] ([id number]) [address] [place] [address] [place] [address] COMPREHENSIVE METABOLIC PANE Antoni 08-31-2024 Albumin [Mass/Vol] 2.5 g/dL Low 3.2-5.3 [facility] Comment on above: Performed By: #### C BCA, CMP, 7-6, 29204-5, 06491-2, 81658-5, PINR, 68494-4, 2639-3 #### [facility] ([id number]) [address] [place] [address] 26439 ALP [Catalytic activity/Vol] 75 U/L Normal 39-130 [facility] Comment on above: Performed By: #### C BCA, CMP, 2156-6, 52943-8, 76497-3, 51267-9, PINR, 27812-0, 2639-3 #### [facility] ([id number]) [address] [place] [address] 97750 ALT [Catalytic activity/Vol] 31 U/L Normal 0-31 [facility] Comment on above: Performed By: #### C BCA, CMP, 2156-6, 95755-7, 59265-6, 41506-6, PINR, 10744-6, 2639-3 #### [facility] ([id number]) [address] [place] [address] [place] [address] Anion gap [Moles/Vol] 9 mmol/L Normal 5-15 [facility] Comment on above: Performed By: #### C BCA, CMP, 7-6, 16196-3, 02120-9, 39601-1, PINR, 76796-2, 2639-3 #### [facility] ([id number]) [address] [place] [address] [place] [address] AST [Catalytic activity/Vol] 36 U/L Normal 0-41 [facility] Comment on above: Performed By: #### C BCA, CMP, 7-6, 46241-4, 88294-1, 12085-2, PINR, 39418-9, 2639-3 #### [facility] ([id number]) [address] [place] [address] 71943 Bilirubin [Mass/Vol] 0.5 mg/dL Normal 0.3-1.2 [facility] Comment on above: Performed By: #### C BCA, CMP, 7-6, 04604-7, 67193-6, 49829-1, PINR, 93117-1, 2639-3 #### [facility] ([id number]) [address] [place] [address] 28031 Calcium [Mass/Vol] 8.2 mg/dL Low 8.5-10.5 [facility] Comment on above: Performed By: #### C BCA, CMP, 2156-6, 61893-4, 93980-1, 40813-3, PINR, 12740-1, 2639-3 #### [facility] ([id number]) [address] [place] [address] 34146 Chloride [Moles/Vol] 107 mmol/L Normal 98-109 [facility] Comment on above: Performed By: #### C BCA, CMP, 2156-6, 66100-7, 94320-9, 56899-1, PINR, 06502-4, 2639-3 #### [facility] ([id number]) [address] [place] [address] 96709 CO2 [Moles/Vol] 24 mmol/L Normal 22-32 [facility] Comment on above: Performed By: #### C BCA, CMP, 7-6, 72239-9, 71826-5, 33853-6, PINR, 50402-5, 2639-3 #### [facility] ([id number]) [address] [place] [address] 33643 Creatinine [Mass/Vol] 0.83 mg/dL Normal 0.40-1.00 [facility] Comment on above: Result Comment: METH OD TRACEABLE TO IDMS STANDARD Performed By: #### C BCA, CMP, 2157-6, 69481-6, 34581-6, 19829-9, PINR, 06431-4, 2639-3 #### [facility] ([id number]) [address] [place] [address] 35979 GFR/1.73 sq M.predicted among non-blacks MDRD (S/P/Bld) [Vol rate/Area] 83 mL/min/{1.73_m2} Normal >59 [facility] Comment on above: Result Comment: Reported eGFR is based on the CKD-EPI 2020 equation that does not use a race coefficient. Performed By: #### C BCA, CMP, 7-6, 56599-0, 12405-6, 13758-2, PINR, 79760-2, 2639-3 #### [facility] ([id number]) [address] [place] [address] 70083 Glucose [Mass/Vol] 101 mg/dL High 65-99 [facility] Comment on above: Performed By: #### C BCA, CMP, 7-6, 77563-4, 03232-6, 73266-5, PINR, 00022-5, 2639-3 #### [facility] ([id number]) [address] [place] [address] 68875 Potassium [Moles/Vol] 3.7 mmol/L Normal 3.5-5.0 [facility] Comment on above: Performed By: #### C BCA, CMP, 2157-6, 15306-3, 10458-4, 95480-6, PINR, 04000-0, 2639-3 #### [facility] ([id number]) [address] [place] [address] 49662 Protein [Mass/Vol] 6.3 g/dL Normal 6.0-8.0 [facility] Comment on above: Performed By: #### C BCA, CMP, 7-6, 42217-8, 74596-1, 19596-2, PINR, 72595-6, 2639-3 #### [facility] ([id number]) [address] [place] [address] 29564 Sodium [Moles/Vol] 140 mmol/L Normal 134-146 [facility] Comment on above: Performed By: #### C BCA, CMP, 7-6, 92701-2, 25123-8, 68147-7, PINR, 91395-2, 2639-3 #### [facility] ([id number]) [address] [place] [address] 59358 Urea nitrogen [Mass/Vol] 8 mg/dL Normal 5-23 [facility] Comment on above: Performed By: #### C BCA, CMP, 7-6, 99155-3, 73362-1, 68462-6, PINR, 65441-3, 2639-3 #### [facility] ([id number]) [address] [place] [address] 69077 MAGNESIUMon 08-31-2024 Magnesium [Mass/Vol] 2.0 mg/dL Normal 1.8-2.6 [facility] Comment on above: Performed By: #### C BCA, CMP, 2156-6, 86470-7, 33678-2, 45467-3, PINR, 23642-4, 2639-3 #### [facility] ([id number]) [address] [place] [address] 29518 Myoglobin [Mass/Vol]on 08-31 SERUM MYOGLOBIN 47.5 ng/mL Normal 14.3-65.8 [facility] Comment on above: Performed By: #### C BCA, CMP, 2156-6, 80450-3, 46118-5, 20371-2, PINR, 09466-3, 2639-3 #### [facility] ([id number]) [address] [place] [address] 53495 SERUM MYOGLOBIN 62.9 ng/mL Normal 14.3-65.8 [facility] Comment on above: Performed By: #### C BCA, CMP, 2156-6, 12669-4, 04485-4, 55602-8, PINR, 32397-7, 2639-3 #### [facility] ([id number]) [address] [place] [address] 00667 POTASSIUMon 08-31-2024 Potassium [Moles/Vol] 4.0 mmol/L Normal 3.5-5.0 [facility] Comment on above: Performed By: #### C BCA, CMP, 2156-6, 62905-8, 21496-2, 29416-3, PINR, 18108-3, 2639-3 #### [facility] ([id number]) [address] [place] [address] 60906 CBC AND AUTO DIFFon 08-31-19 25 ABSOLUTE BASOPHIL 0.1 X10E9/L Normal 0.0-0.2 [facility] Comment on above: Performed By: #### C BCA, CMP, 2156-6, 56832-1, 89814-6, 85503-6, PINR, 27377-0, 2639-3 #### [facility] ([id number]) [address] [place] [address] 64280 ABSOLUTE NEUTROPHIL 9.5 X10E9/L High 1.5-6.6 [facility] Comment on above: Performed By: #### C BCA, CMP, 2156-6, 45339-7, 21941-7, 78124-2, PINR, 24987-0, 2639-3 #### [facility] ([id number]) [address] [place] [address] 37564 Basophils/100 WBC (Bld) 0.5 % Normal [facility] Comment on above: Performed By: #### C BCA, CMP, 2156-10, 83980-2, 69278-6, 17579-5, PINR, 87175-4, 2639-3 #### [facility] ([id number]) [address] [place] [address] 97232 Eosinophils (Bld) [#/Vol] 0.0 10*3/uL Normal 0.0-0.4 [facility] Comment on above: Performed By: #### C BCA, CMP, 2156-10, 37629-9, 78600-3, 26285-5, PINR, 62111-6, 2639-3 #### [facility] ([id number]) [address] [place] [address] 13531 Eosinophils/100 WBC (Bld) 0.3 % Normal [facility] Comment on above: Performed By: #### C BCA, CMP, 2156-10, 17837-3, 48162-9, 27576-1, PINR, 86307-1, 2639-3 #### [facility] ([id number]) [address] [place] [address] 39057 Erythrocyte distribution width (RBC) [Ratio] 15.0 % Normal 11.5-15.0 [facility] Comment on above: Performed By: #### C BCA, CMP, 2156-10, 92393-4, 49012-6, 24915-2, PINR, 65465-4, 2639-3 #### [facility] ([id number]) [address] [place] [address] 06539 Hematocrit (Bld) [Volume fraction] 36.8 % Normal 35-47 [facility] Comment on above: Performed By: #### C BCA, CMP, 2156-10, 85806-8, 26331-0, 78791-0, PINR, 16805-0, 2639-3 #### [facility] ([id number]) [address] [place] [address] 50687 Hemoglobin (Bld) [Mass/Vol] 12.4 g/dL Normal 11.7-15.5 [facility] Comment on above: Performed By: #### C BCA, CMP, 2156-, 89227-0, 24540-9, 79351-0, PINR, 48162-1, 2639-3 #### [facility] ([id number]) [address] [place] [address] 76287 Lymphocytes (Bld) [#/Vol] 0.7 10*3/uL Low 1.0-3.5 [facility] Comment on above: Performed By: #### C BCA, CMP, 2156-10, 15183-6, 19128-2, 34181-0, PINR, 29799-7, 2639-3 #### [facility] ([id number]) [address] [place] [address] 26221 Lymphocytes/100 WBC (Bld) 5.8 % Normal [facility] Comment on above: Performed By: #### C BCA, CMP, 2156-, 34234-3, 69311-7, 03466-5, PINR, 63992-7, 2639-3 #### [facility] ([id number]) [address] [place] [address] 49573 MCH (RBC) [Entitic mass] 28.0 pg Normal 27-34 [facility] Comment on above: Performed By: #### C BCA, CMP, 2156-, 41594-0, 95789-8, 12812-1, PINR, 51077-2, 2639-3 #### [facility] ([id number]) [address] [place] [address] MCHC (RBC) [Mass/Vol] 33.6 g/dL Normal 32-36 [facility] Comment on above: Performed By: #### C BCA, CMP, 2157-6, 66426-6, 17182-2, 71748-9, PINR, 81536-1, 2639-3 #### [facility] ([id number]) [address] [place] [address] 73912 MCV (RBC) [Entitic vol] 83 fL Normal 80-100 [facility] Comment on above: Performed By: #### C BCA, CMP, 7-6, 68388-7, 27515-6, 93873-4, PINR, 17340-3, 2639-3 #### [facility] ([id number]) [address] [place] [address] 58810 Monocytes (Bld) [#/Vol] 1.1 10*3/uL High 0-0.9 [facility] Comment on above: Performed By: #### C BCA, CMP, 2156-6, 03300-2, 00583-4, 29595-5, PINR, 32745-9, 2639-3 #### [facility] ([id number]) [address] [place] [address] 56498 Monocytes/100 WBC (Bld) 9.8 % Normal [facility] Comment on above: Performed By: #### C BCA, CMP, 7-6, 62648-0, 92212-5, 90962-2, PINR, 88961-4, 2639-3 #### [facility] ([id number]) [address] [place] [address] 11460 Neutrophils/100 WBC (Bld) 83.6 % Normal [facility] Comment on above: Performed By: #### C BCA, CMP, 2157-6, 82894-3, 88270-1, 47868-9, PINR, 78588-3, 2639-3 #### [facility] ([id number]) [address] [place] [address] 66042 Platelet mean volume (Bld) [Entitic vol] 9.6 fL Normal 7-12 [facility] Comment on above: Performed By: #### C BCA, CMP, 2157-6, 18992-5, 55981-0, 06916-6, PINR, 79345-3, 2639-3 #### [facility] ([id number]) [address] [place] [address] 03410 Platelets (Bld) [#/Vol] 202 10*3/uL Normal 150-450 [facility] Comment on above: Performed By: #### C BCA, CMP, 7-6, 31804-7, 41834-6, 20681-2, PINR, 04148-6, 2639-3 #### [facility] ([id number]) [address] [place] [address] 41759 RBC COUNT 4.41 X10E12/L Normal 3.80-5.20 [facility] Comment on above: Performed By: #### C BCA, CMP, 7-6, 49954-4, 93644-0, 08365-5, PINR, 53757-8, 2639-3 #### [facility] ([id number]) [address] [place] [address] 76348 WBC (Bld) [#/Vol] 11.4 10*3/uL High 4.0-11.0 [facility] Comment on above: Performed By: #### C BCA, CMP, 7-6, 55859-1, 64595-9, 18394-9, PINR, 05911-6, 2639-3 #### [facility] ([id number]) [address] [place] [address] 29412 CK [Catalytic activity/Vol]o n 08-30-2024 CPK 563 U/L High 24-170 [facility] Comment on above: Performed By: #### C BCA, CMP, 2157-6, 39432-8, 41160-5, 44100-8, PINR, 37070-6, 2639-3 #### [facility] ([id number]) [address] [place] [address], [place] [address] CPK 831 U/L High 24-170 [facility] Comment on above: Performed By: #### C BCA, CMP, 2157-6, 95546-2, 29063-0, 84939-9, PINR, 51197-4, 2639-3 #### [facility] ([id number]) [address] [place] [address], [place] [address] CPK 1066 U/L High 24-170 [facility] Comment on above: Performed By: #### C BCA, CMP, 2156-6, 43261-2, 58055-1, 51209-0, PINR, 23385-0, 2639-3 #### [facility] ([id number]) [address] [place] [address] [place] [address] COMPREHENSIVE METABOLIC PANE Antoni 08-30-2024 Albumin [Mass/Vol] 2.7 g/dL Low 3.2-5.3 [facility] Comment on above: Performed By: #### C BCA, CMP, 7-6, 55591-0, 36037-1, 26995-6, PINR, 29833-3, 2639-3 #### [facility] ([id number]) [address] [place] [address], [place] [address] ALP [Catalytic activity/Vol] 57 U/L Normal 39-130 [facility] Comment on above: Performed By: #### C BCA, CMP, 2157-6, 94867-8, 61363-4, 13433-8, PINR, 70786-5, 2639-3 #### [facility] ([id number]) [address] [place] [address] 71595 ALT [Catalytic activity/Vol] 36 U/L High 0-31 [facility] Comment on above: Performed By: #### C BCA, CMP, 2156-6, 81691-0, 59695-6, 98006-5, PINR, 64459-4, 2639-3 #### [facility] ([id number]) [address] [place] [address] 52297 Anion gap [Moles/Vol] 11 mmol/L Normal 5-15 [facility] Comment on above: Performed By: #### C BCA, CMP, 2156-, 57546-7, 59815-3, 63169-0, PINR, 96921-7, 2639-3 #### [facility] ([id number]) [address] [place] [address] 99755 AST [Catalytic activity/Vol] 52 U/L High 0-41 [facility] Comment on above: Performed By: #### C BCA, CMP, 2156-6, 18700-4, 65335-3, 39843-7, PINR, 48730-3, 2639-3 #### [facility] ([id number]) [address] [place] [address] 84262 Bilirubin [Mass/Vol] 0.6 mg/dL Normal 0.3-1.2 [facility] Comment on above: Performed By: #### C BCA, CMP, 2156-10, 20963-1, 13963-9, 17241-1, PINR, 04057-8, 2639-3 #### [facility] ([id number]) [address] [place] [address] 22439 Calcium [Mass/Vol] 8.2 mg/dL Low 8.5-10.5 [facility] Comment on above: Performed By: #### C BCA, CMP, 2156-, 73373-1, 36204-8, 48150-4, PINR, 36292-8, 2639-3 #### [facility] ([id number]) [address] [place] [address] 03926 Chloride [Moles/Vol] 106 mmol/L Normal 98-109 [facility] Comment on above: Performed By: #### C BCA, CMP, 2157-6, 20568-0, 20827-5, 46821-8, PINR, 27024-9, 2639-3 #### [facility] ([id number]) [address] [place] [address] 81980 CO2 [Moles/Vol] 21 mmol/L Low 22-32 [facility] Comment on above: Performed By: #### C BCA, CMP, 7-6, 95845-7, 43291-1, 83753-8, PINR, 34938-0, 2639-3 #### [facility] ([id number]) [address] [place] [address] 44072 Creatinine [Mass/Vol] 0.87 mg/dL Normal 0.40-1.00 [facility] Comment on above: Result Comment: METH OD TRACEABLE TO IDMS STANDARD Performed By: #### C BCA, CMP, 7-6, 21085-8, 13268-7, 63601-2, PINR, 52071-0, 2639-3 #### [facility] ([id number]) [address] [place] [address] 03909 GFR/1.73 sq M.predicted among non-blacks MDRD (S/P/Bld) [Vol rate/Area] 78 mL/min/{1.73_m2} Normal >59 [facility] Comment on above: Result Comment: Reported eGFR is based on the CKD-EPI 2020 equation that does not use a race coefficient. Performed By: #### C BCA, CMP, 2157-6, 06704-4, 61383-2, 05789-1, PINR, 10413-3, 2639-3 #### [facility] ([id number]) [address] [place] [address] 91997 Glucose [Mass/Vol] 107 mg/dL High 65-99 [facility] Comment on above: Performed By: #### C BCA, CMP, 7-6, 17485-3, 23292-0, 57058-3, PINR, 32244-4, 2639-3 #### [facility] ([id number]) [address] [place] [address] 36525 Potassium [Moles/Vol] 3.9 mmol/L Normal 3.5-5.0 [facility] Comment on above: Performed By: #### C BCA, CMP, 2156-6, 84186-2, 13943-8, 24028-0, PINR, 08182-3, 2639-3 #### [facility] ([id number]) [address] [place] [address] 95904 Protein [Mass/Vol] 6.2 g/dL Normal 6.0-8.0 [facility] Comment on above: Performed By: #### C BCA, CMP, 2156-6, 61301-5, 13973-9, 61786-4, PINR, 51421-0, 2639-3 #### [facility] ([id number]) [address] [place] [address] 27037 Sodium [Moles/Vol] 138 mmol/L Normal 134-146 [facility] Comment on above: Performed By: #### C BCA, CMP, 2156-6, 31830-3, 58637-5, 22686-5, PINR, 13150-6, 2639-3 #### [facility] ([id number]) [address] [place] [address] 59880 Urea nitrogen [Mass/Vol] 6 mg/dL Normal 5-23 [facility] Comment on above: Performed By: #### C BCA, CMP, 2156-6, 08965-0, 38006-3, 11815-0, PINR, 50186-0, 2639-3 #### [facility] ([id number]) [address] [place] [address] 64998 MAGNESIUMon 08-30-2024 Magnesium [Mass/Vol] 2.0 mg/dL Normal 1.8-2.6 [facility] Comment on above: Performed By: #### C BCA, CMP, 2156-, 55128-3, 56625-5, 35225-9, PINR, 38706-3, 2639-3 #### [facility] ([id number]) [address] [place] [address] 06200 Myoglobin [Mass/Vol]on 08-30 SERUM MYOGLOBIN 67.5 ng/mL High 14.3-65.8 [facility] Comment on above: Performed By: #### C BCA, CMP, 2156-10, 39281-1, 53499-4, 54524-0, PINR, 05400-1, 2639-3 #### [facility] ([id number]) [address] [place] [address] 87867 SERUM MYOGLOBIN 127.2 ng/mL High 14.3-65.8 [facility] Comment on above: Performed By: #### C BCA, CMP, 2156-, 29008-9, 14760-1, 09679-4, PINR, 77865-4, 2639-3 #### [facility] ([id number]) [address] [place] [address] 50325 SERUM MYOGLOBIN 77.9 ng/mL High 14.3-65.8 [facility] Comment on above: Performed By: #### C BCA, CMP, 2156-6, 26218-8, 57231-3, 05671-9, PINR, 67825-4, 2639-3 #### [facility] ([id number]) [address] [place] [address] 47845 CBC AND AUTO DIFFon 08-30-19 25 ABSOLUTE BASOPHIL 0.0 X10E9/L Normal 0.0-0.2 [facility] Comment on above: Performed By: #### C BCA, CMP, 2156-6, 97297-3, 97928-2, 72048-6, PINR, 72974-8, 2639-3 #### [facility] ([id number]) [address] [place] [address] 19067 ABSOLUTE NEUTROPHIL 5.8 X10E9/L Normal 1.5-6.6 [facility] Comment on above: Performed By: #### C BCA, CMP, 2156-, 34844-6, 02765-9, 54050-2, PINR, 65565-9, 2639-3 #### [facility] ([id number]) [address] [place] [address] 00352 Basophils/100 WBC (Bld) 0.5 % Normal [facility] Comment on above: Performed By: #### C BCA, CMP, 2156-, 78302-3, 63401-7, 21261-6, PINR, 89262-5, 2639-3 #### [facility] ([id number]) [address] [place] [address] 03663 Eosinophils (Bld) [#/Vol] 0.1 10*3/uL Normal 0.0-0.4 [facility] Comment on above: Performed By: #### C BCA, CMP, 2156-6, 49030-9, 62828-0, 27390-2, PINR, 12241-7, 2639-3 #### [facility] ([id number]) [address] [place] [address] 16950 Eosinophils/100 WBC (Bld) 1.6 % Normal [facility] Comment on above: Performed By: #### C BCA, CMP, 2157-6, 05072-1, 19485-9, 68868-1, PINR, 37161-6, 2639-3 #### [facility] ([id number]) [address] [place] [address] 07166 Erythrocyte distribution width (RBC) [Ratio] 15.7 % High 11.5-15.0 [facility] Comment on above: Performed By: #### C BCA, CMP, 2156-6, 63908-9, 92395-6, 03648-2, PINR, 80312-8, 2639-3 #### [facility] ([id number]) [address] [place] [address] 46146 Hematocrit (Bld) [Volume fraction] 36.8 % Normal 35-47 [facility] Comment on above: Performed By: #### C BCA, CMP, 2156-6, 39148-9, 77599-8, 13414-1, PINR, 42980-0, 2639-3 #### [facility] ([id number]) [address] [place] [address] 04626 Hemoglobin (Bld) [Mass/Vol] 12.3 g/dL Normal 11.7-15.5 [facility] Comment on above: Performed By: #### C BCA, CMP, 2156-6, 12717-3, 16026-2, 11950-8, PINR, 47066-0, 2639-3 #### [facility] ([id number]) [address] [place] [address] 90860 Lymphocytes (Bld) [#/Vol] 0.9 10*3/uL Low 1.0-3.5 [facility] Comment on above: Performed By: #### C BCA, CMP, 2156-6, 13649-0, 96305-6, 61010-1, PINR, 70017-4, 2639-3 #### [facility] ([id number]) [address] [place] [address] 60592 Lymphocytes/100 WBC (Bld) 11.3 % Normal [facility] Comment on above: Performed By: #### C BCA, CMP, 2156-6, 31313-8, 70174-7, 90558-3, PINR, 03357-6, 2639-3 #### [facility] ([id number]) [address] [place] [address] 21118 MCH (RBC) [Entitic mass] 27.8 pg Normal 27-34 [facility] Comment on above: Performed By: #### C BCA, CMP, 2156-6, 57312-8, 16456-1, 14220-0, PINR, 69523-2, 2639-3 #### [facility] ([id number]) [address] [place] [address] 26648 MCHC (RBC) [Mass/Vol] 33.4 g/dL Normal 32-36 [facility] Comment on above: Performed By: #### C BCA, CMP, 2156-6, 80600-1, 23176-9, 95315-1, PINR, 15761-5, 2639-3 #### [facility] ([id number]) [address] [place] [address] 40822 MCV (RBC) [Entitic vol] 83 fL Normal 80-100 [facility] Comment on above: Performed By: #### C BCA, CMP, 2156-6, 99152-7, 57643-7, 49256-4, PINR, 46695-2, 2639-3 #### [facility] ([id number]) [address] [place] [address] 31990 Monocytes (Bld) [#/Vol] 0.8 10*3/uL Normal 0-0.9 [facility] Comment on above: Performed By: #### C BCA, CMP, 2156-6, 72707-6, 10394-2, 32029-9, PINR, 80803-1, 2639-3 #### [facility] ([id number]) [address] [place] [address] 97637 Monocytes/100 WBC (Bld) 10.5 % Normal [facility] Comment on above: Performed By: #### C BCA, CMP, 2157-6, 44681-8, 84265-5, 68233-5, PINR, 93404-4, 2639-3 #### [facility] ([id number]) [address] [place] [address] 12398 Neutrophils/100 WBC (Bld) 76.1 % Normal [facility] Comment on above: Performed By: #### C BCA, CMP, 7-6, 57476-8, 80366-9, 17778-6, PINR, 35516-7, 2639-3 #### [facility] ([id number]) [address] [place] [address] 96738 Platelet mean volume (Bld) [Entitic vol] 9.1 fL Normal 7-12 [facility] Comment on above: Performed By: #### C BCA, CMP, 7-6, 25951-2, 02959-8, 36754-1, PINR, 84249-8, 2639-3 #### [facility] ([id number]) [address] [place] [address] 92147 Platelets (Bld) [#/Vol] 188 10*3/uL Normal 150-450 [facility] Comment on above: Performed By: #### C BCA, CMP, 7-6, 93693-2, 91653-4, 51395-0, PINR, 61746-1, 2639-3 #### [facility] ([id number]) [address] [place] [address] 01053 RBC COUNT 4.42 X10E12/L Normal 3.80-5.20 [facility] Comment on above: Performed By: #### C BCA, CMP, 2157-6, 70472-9, 32733-3, 19675-9, PINR, 81803-1, 2639-3 #### [facility] ([id number]) [address] [place] [address] 29522 WBC (Bld) [#/Vol] 7.7 10*3/uL Normal 4.0-11.0 [facility] Comment on above: Performed By: #### C BCA, CMP, 2157-6, 17489-5, 87058-3, 52842-5, PINR, 89966-2, 2639-3 #### [facility] ([id number]) [address] [place] [address] 06169 CK [Catalytic activity/Vol]o n 08-29-2024 CPK 1666 U/L High 24-170 [facility] Comment on above: Performed By: #### C BCA, CMP, 7-6, 99230-1, 48512-2, 20318-4, PINR, 64724-4, 2639-3 #### [facility] ([id number]) [address] [place] [address] 41825 CPK 2774 U/L High 24-170 [facility] Comment on above: Performed By: #### C BCA, CMP, 7-6, 52508-5, 02552-2, 59985-8, PINR, 95506-2, 2639-3 #### [facility] ([id number]) [address] [place] [address] 49838 CPK 3580 U/L High 24-170 [facility] Comment on above: Performed By: #### C BCA, CMP, 2157-6, 99308-4, 82884-8, 55659-0, PINR, 94792-8, 2639-3 #### [facility] ([id number]) [address] [place] [address] [place] [address] COMPREHENSIVE METABOLIC PANE Antoni 08-29-2024 Albumin [Mass/Vol] 2.7 g/dL Low 3.2-5.3 [facility] Comment on above: Performed By: #### C BCA, CMP, 2157-6, 56873-5, 57277-6, 62995-4, PINR, 38651-4, 2639-3 #### [facility] ([id number]) [address] [place] [address] 41792 ALP [Catalytic activity/Vol] 60 U/L Normal 39-130 [facility] Comment on above: Performed By: #### C BCA, CMP, 7-6, 67479-4, 82630-8, 81824-0, PINR, 92839-7, 2639-3 #### [facility] ([id number]) [address] [place] [address] 10829 ALT [Catalytic activity/Vol] 46 U/L High 0-31 [facility] Comment on above: Performed By: #### C BCA, CMP, 7-6, 17779-0, 72656-3, 61632-3, PINR, 77374-9, 2639-3 #### [facility] ([id number]) [address] [place] [address] 50105 Anion gap [Moles/Vol] 8 mmol/L Normal 5-15 [facility] Comment on above: Performed By: #### C BCA, CMP, 7-6, 42000-5, 81132-8, 60718-1, PINR, 93462-3, 2639-3 #### [facility] ([id number]) [address] [place] [address] 50562 AST [Catalytic activity/Vol] 94 U/L High 0-41 [facility] Comment on above: Performed By: #### C BCA, CMP, 2157-6, 58292-5, 38920-2, 33209-8, PINR, 36793-3, 2639-3 #### [facility] ([id number]) [address] [place] [address] 32567 Bilirubin [Mass/Vol] 0.5 mg/dL Normal 0.3-1.2 [facility] Comment on above: Performed By: #### C BCA, CMP, 2156-6, 99313-5, 96252-7, 53121-8, PINR, 71256-4, 2639-3 #### [facility] ([id number]) [address] [place] [address] 78336 Calcium [Mass/Vol] 8.0 mg/dL Low 8.5-10.5 [facility] Comment on above: Performed By: #### C BCA, CMP, 2156-, 25655-5, 70291-7, 50886-2, PINR, 91147-2, 2639-3 #### [facility] ([id number]) [address] [place] [address] 78664 Chloride [Moles/Vol] 112 mmol/L High 98-109 [facility] Comment on above: Performed By: #### C BCA, CMP, 2156-6, 79960-8, 96019-6, 78254-9, PINR, 16859-2, 2639-3 #### [facility] ([id number]) [address] [place] [address] 38367 CO2 [Moles/Vol] 20 mmol/L Low 22-32 [facility] Comment on above: Performed By: #### C BCA, CMP, 2156-6, 00487-8, 82915-3, 06779-2, PINR, 73530-6, 2639-3 #### [facility] ([id number]) [address] [place] [address] 02345 Creatinine [Mass/Vol] 0.86 mg/dL Normal 0.40-1.00 [facility] Comment on above: Result Comment: METH OD TRACEABLE TO IDMS STANDARD Performed By: #### C BCA, CMP, 2156-6, 95410-2, 85337-2, 69464-0, PINR, 35160-3, 2639-3 #### [facility] ([id number]) [address] [place] [address] 50706 GFR/1.73 sq M.predicted among non-blacks MDRD (S/P/Bld) [Vol rate/Area] 79 mL/min/{1.73_m2} Normal >59 [facility] Comment on above: Result Comment: Reported eGFR is based on the CKD-EPI 2020 equation that does not use a race coefficient. Performed By: #### C BCA, CMP, 2156-, 13063-6, 56342-8, 39550-2, PINR, 53205-4, 2639-3 #### [facility] ([id number]) [address] [place] [address] 43456 Glucose [Mass/Vol] 91 mg/dL Normal 65-99 [facility] Comment on above: Performed By: #### C BCA, CMP, 2156-, 34851-2, 63732-3, 44678-0, PINR, 60524-8, 2639-3 #### [facility] ([id number]) [address] [place] [address] 26998 Potassium [Moles/Vol] 4.0 mmol/L Normal 3.5-5.0 [facility] Comment on above: Performed By: #### C BCA, CMP, 2156-6, 54873-9, 85586-5, 88611-5, PINR, 48189-1, 2639-3 #### [facility] ([id number]) [address] [place] [address] 51283 Protein [Mass/Vol] 6.4 g/dL Normal 6.0-8.0 [facility] Comment on above: Performed By: #### C BCA, CMP, 2157-6, 11619-8, 28921-1, 15789-2, PINR, 10714-8, 2639-3 #### [facility] ([id number]) [address] [place] [address] 23374 Sodium [Moles/Vol] 140 mmol/L Normal 134-146 [facility] Comment on above: Performed By: #### C BCA, CMP, 2156-6, 28744-9, 85667-4, 55017-6, PINR, 34147-4, 2639-3 #### [facility] ([id number]) [address] [place] [address] 38325 Urea nitrogen [Mass/Vol] 10 mg/dL Normal 5-23 [facility] Comment on above: Performed By: #### C BCA, CMP, 2156-6, 33150-7, 97498-5, 46958-8, PINR, 90525-0, 2639-3 #### [facility] ([id number]) [address] [place] [address] 63059 Calcium.ionized (Bld) [Moles /Vol]on 08-29-2024 PORTABLE ICA 4.6 mg/dL Normal 4.5-5.3 [facility] Comment on above: Performed By: #### C BCA, CMP, 2156-6, 37368-6, 62306-4, 04013-1, PINR, 32197-3, 2639-3 #### [facility] ([id number]) [address] [place] [address] 76463 Lipid 1996 panelon 5 Cholesterol [Mass/Vol] 151 mg/dL Normal 150-200 [facility] Comment on above: Performed By: #### C BCA, CMP, 2156-6, 41980-0, 37577-8, 32965-0, PINR, 65819-9, 2639-3 #### [facility] ([id number]) [address] [place] [address] Cholesterol in HDL [Mass/Vol] 29 mg/dL Low >39 [facility] Comment on above: Result Comment: HDL <40 mg/dL - High Risk HDL > or = 40mg/dL- Desirable HDL >60 mg/dL - Negative Risk Performed By: #### C BCA, CMP, 2156-6, 90408-6, 03743-3, 08772-1, PINR, 27636-3, 2639-3 #### [facility] ([id number]) [address] [place] [address] 75286 Cholesterol in LDL [Mass/Vol] 100 mg/dL Normal <130 [facility] Comment on above: Result Comment: LDL <100 mg/dL - Desirable LDL >160 mg/dL - High Risk Performed By: #### C BCA, CMP, 2156-6, 62075-7, 65917-7, 95934-5, PINR, 31269-4, 2639-3 #### [facility] ([id number]) [address] [place] [address] 01779 Cholesterol in VLDL [Mass/Vol] 22 mg/dL Normal 0-30 [facility] Comment on above: Performed By: #### C BCA, CMP, 2157-6, 26915-8, 27565-6, 30387-6, PINR, 46654-9, 2639-3 #### [facility] ([id number]) [address] [place] [address] 09617 CHOLESTEROL:HDL 5.2 High 1.0-5.0 [facility] Comment on above: Performed By: #### C BCA, CMP, 2156-6, 59733-5, 59308-6, 56317-1, PINR, 04185-3, 2639-3 #### [facility] ([id number]) [address] [place] [address] 36379 Triglyceride [Mass/Vol] 112 mg/dL Normal 27-150 [facility] Comment on above: Performed By: #### C BCA, CMP, 2156-6, 56765-1, 97991-2, 95113-2, PINR, 78924-5, 2639-3 #### [facility] ([id number]) [address] [place] [address] 56337 MAGNESIUMon 08-29-2024 Magnesium [Mass/Vol] 2.1 mg/dL Normal 1.8-2.6 [facility] Comment on above: Performed By: #### C BCA, CMP, 2156-10, 78560-0, 30357-6, 90697-4, PINR, 01809-5, 2639-3 #### [facility] ([id number]) [address] [place] [address] 77852 Magnesium [Mass/Vol] 1.9 mg/dL Normal 1.8-2.6 [facility] Comment on above: Performed By: #### C BCA, CMP, 2156-, 64865-9, 84495-8, 78031-9, PINR, 31314-0, 2639-3 #### [facility] ([id number]) [address] [place] [address] 73637 Myoglobin [Mass/Vol]on 08-29 SERUM MYOGLOBIN 96.4 ng/mL High 14.3-65.8 [facility] Comment on above: Performed By: #### C BCA, CMP, 2156-6, 99893-9, 44285-3, 06572-8, PINR, 03136-7, 2639-3 #### [facility] ([id number]) [address] [place] [address] 52722 SERUM MYOGLOBIN 230.3 ng/mL High 14.3-65.8 [facility] Comment on above: Performed By: #### C BCA, CMP, 2156-10, 42070-4, 92983-1, 11986-9, PINR, 84976-6, 2639-3 #### [facility] ([id number]) [address] [place] [address] 45316 SERUM MYOGLOBIN 374.0 ng/mL High 14.3-65.8 [facility] Comment on above: Performed By: #### C BCA, CMP, 2156-10, 41247-7, 33075-1, 06063-2, PINR, 73685-1, 2639-3 #### [facility] ([id number]) [address] [place] [address] 08172 CBC AND AUTO DIFFon 08-29-19 25 ABSOLUTE BASOPHIL 0.0 X10E9/L Normal 0.0-0.2 [facility] Comment on above: Performed By: #### C BCA, CMP, 2156-10, 86067-6, 69721-4, 52874-0, PINR, 21498-7, 2639-3 #### [facility] ([id number]) [address] [place] [address] 76913 ABSOLUTE NEUTROPHIL 12.1 X10E9/L High 1.5-6.6 [facility] Comment on above: Performed By: #### C BCA, CMP, 2156-10, 49600-7, 58430-4, 86870-1, PINR, 00817-3, 2639-3 #### [facility] ([id number]) [address] [place] [address] 22472 Basophils/100 WBC (Bld) 0.2 % Normal [facility] Comment on above: Performed By: #### C BCA, CMP, 2156-10, 76183-2, 95034-5, 17509-1, PINR, 88915-7, 2639-3 #### [facility] ([id number]) [address] [place] [address] 11222 Eosinophils (Bld) [#/Vol] 0.0 10*3/uL Normal 0.0-0.4 [facility] Comment on above: Performed By: #### C BCA, CMP, 2156-6, 62078-3, 24921-6, 16136-3, PINR, 04398-2, 2639-3 #### [facility] ([id number]) [address] [place] [address] 96402 Eosinophils/100 WBC (Bld) 0.1 % Normal [facility] Comment on above: Performed By: #### C BCA, CMP, 2156-, 26523-0, 92178-3, 72068-9, PINR, 12261-4, 2639-3 #### [facility] ([id number]) [address] [place] [address] 59530 Erythrocyte distribution width (RBC) [Ratio] 15.7 % High 11.5-15.0 [facility] Comment on above: Performed By: #### C BCA, CMP, 2156-6, 46410-5, 05963-9, 24070-7, PINR, 76023-1, 2639-3 #### [facility] ([id number]) [address] [place] [address] 24839 Hematocrit (Bld) [Volume fraction] 40.3 % Normal 35-47 [facility] Comment on above: Performed By: #### C BCA, CMP, 2156-6, 69305-6, 20350-9, 35995-2, PINR, 00371-6, 2639-3 #### [facility] ([id number]) [address] [place] [address] Hemoglobin (Bld) [Mass/Vol] 13.5 g/dL Normal 11.7-15.5 [facility] Comment on above: Performed By: #### C BCA, CMP, 2156-6, 42509-1, 17493-6, 40524-6, PINR, 63922-2, 2639-3 #### [facility] ([id number]) [address] [place] [address] 46720 Lymphocytes (Bld) [#/Vol] 0.6 10*3/uL Low 1.0-3.5 [facility] Comment on above: Performed By: #### C BCA, CMP, 2156-, 00472-7, 62081-1, 12290-5, PINR, 22119-0, 2639-3 #### [facility] ([id number]) [address] [place] [address] 65104 Lymphocytes/100 WBC (Bld) 4.6 % Normal [facility] Comment on above: Performed By: #### C BCA, CMP, 2156-6, 39279-6, 39156-9, 88865-7, PINR, 24465-7, 2639-3 #### [facility] ([id number]) [address] [place] [address] 41094 MCH (RBC) [Entitic mass] 28.0 pg Normal 27-34 [facility] Comment on above: Performed By: #### C BCA, CMP, 2156-6, 64580-4, 44042-6, 01745-5, PINR, 49752-9, 2639-3 #### [facility] ([id number]) [address] [place] [address] 34022 MCHC (RBC) [Mass/Vol] 33.6 g/dL Normal 32-36 [facility] Comment on above: Performed By: #### C BCA, CMP, 2156-6, 38539-1, 23619-8, 59637-3, PINR, 77315-2, 2639-3 #### [facility] ([id number]) [address] [place] [address] 04861 MCV (RBC) [Entitic vol] 83 fL Normal 80-100 [facility] Comment on above: Performed By: #### C BCA, CMP, 7-6, 87343-2, 45842-1, 49603-7, PINR, 16574-0, 2639-3 #### [facility] ([id number]) [address] [place] [address] 86921 Monocytes (Bld) [#/Vol] 1.4 10*3/uL High 0-0.9 [facility] Comment on above: Performed By: #### C BCA, CMP, 7-6, 72298-4, 58397-0, 30393-5, PINR, 30396-8, 2639-3 #### [facility] ([id number]) [address] [place] [address] 69546 Monocytes/100 WBC (Bld) 9.9 % Normal [facility] Comment on above: Performed By: #### C BCA, CMP, 7-6, 99714-6, 64845-8, 48597-3, PINR, 18776-8, 2639-3 #### [facility] ([id number]) [address] [place] [address] 96617 Neutrophils/100 WBC (Bld) 85.2 % Normal [facility] Comment on above: Performed By: #### C BCA, CMP, 7-6, 11128-0, 77811-2, 01291-0, PINR, 99262-5, 2639-3 #### [facility] ([id number]) [address] [place] [address] 81514 Platelet mean volume (Bld) [Entitic vol] 9.0 fL Normal 7-12 [facility] Comment on above: Performed By: #### C BCA, CMP, 7-6, 29640-3, 31745-9, 41432-3, PINR, 59143-9, 2639-3 #### [facility] ([id number]) [address] [place] [address] 86467 Platelets (Bld) [#/Vol] 239 10*3/uL Normal 150-450 [facility] Comment on above: Performed By: #### C BCA, CMP, 2156-6, 84108-7, 59446-9, 63635-9, PINR, 41057-9, 2639-3 #### [facility] ([id number]) [address] [place] [address] 04955 RBC COUNT 4.83 X10E12/L Normal 3.80-5.20 [facility] Comment on above: Performed By: #### C BCA, CMP, 2156-6, 32319-1, 39074-1, 25865-2, PINR, 29910-5, 2639-3 #### [facility] ([id number]) [address] [place] [address] 58847 WBC (Bld) [#/Vol] 14.2 10*3/uL High 4.0-11.0 [facility] Comment on above: Performed By: #### C BCA, CMP, 2156-6, 94342-8, 47527-1, 47956-9, PINR, 50168-2, 2639-3 #### [facility] ([id number]) [address] [place] [address] 35809 CK [Catalytic activity/Vol]o n 08-28-2024 CPK 4648 U/L High 24-170 [facility] Comment on above: Performed By: #### C BCA, CMP, 2156-6, 09151-5, 65328-0, 87751-3, PINR, 12285-8, 2639-3 #### [facility] ([id number]) [address] [place] [address] 73444 CPK 3034 U/L High 24-170 [facility] Comment on above: Performed By: #### C BCA, CMP, 7-6, 48569-0, 79403-1, 97065-0, PINR, 28704-5, 2639-3 #### [facility] ([id number]) [address] [place] [address] 57346 COMPREHENSIVE METABOLIC PANE Antoni 08-28-2024 Albumin [Mass/Vol] 3.5 g/dL Normal 3.2-5.3 [facility] Comment on above: Performed By: #### C BCA, CMP, 2156-6, 48396-2, 81070-9, 47947-0, PINR, 64427-2, 2639-3 #### [facility] ([id number]) [address] [place] [address] 54279 ALP [Catalytic activity/Vol] 86 U/L Normal 39-130 [facility] Comment on above: Performed By: #### C BCA, CMP, 2156-6, 76241-3, 55914-0, 94833-5, PINR, 47796-8, 2639-3 #### [facility] ([id number]) [address] [place] [address] 27256 ALT [Catalytic activity/Vol] 32 U/L High 0-31 [facility] Comment on above: Performed By: #### C BCA, CMP, 7-6, 67050-9, 41494-0, 28526-3, PINR, 10544-3, 2639-3 #### [facility] ([id number]) [address] [place] [address] 30269 Anion gap [Moles/Vol] 10 mmol/L Normal 5-15 [facility] [place] Comment on above: Performed By: #### C BCA, CMP, 2156-6, 95829-1, 08058-0, 98141-8, PINR, 17060-6, 2639-3 #### [facility] ([id number]) [address] [place] [address] 06119 AST [Catalytic activity/Vol] 62 U/L High 0-41 [facility] Comment on above: Performed By: #### C BCA, CMP, 2156-6, 38449-5, 05157-4, 40215-3, PINR, 80086-0, 2639-3 #### [facility] ([id number]) [address] [place] [address] 00395 Bilirubin [Mass/Vol] 0.6 mg/dL Normal 0.3-1.2 [facility] Comment on above: Performed By: #### C BCA, CMP, 2156-6, 41992-6, 03209-1, 62226-8, PINR, 00607-8, 2639-3 #### [facility] ([id number]) [address] [place] [address] 13364 Calcium [Mass/Vol] 9.4 mg/dL Normal 8.5-10.5 [facility] Comment on above: Performed By: #### C BCA, CMP, 2156-6, 87875-8, 53486-3, 69514-8, PINR, 88211-2, 2639-3 #### [facility] ([id number]) [address] [place] [address] 62168 Chloride [Moles/Vol] 107 mmol/L Normal 98-109 [facility] Comment on above: Performed By: #### C BCA, CMP, 2156-6, 68374-5, 40115-1, 75609-5, PINR, 62004-4, 2639-3 #### [facility] ([id number]) [address] [place] [address] 37600 CO2 [Moles/Vol] 24 mmol/L Normal 22-32 [facility] Comment on above: Performed By: #### C BCA, CMP, 2157-6, 78861-5, 81867-7, 70210-5, PINR, 32856-4, 2639-3 #### [facility] ([id number]) [address] [place] [address] 26194 Creatinine [Mass/Vol] 1.27 mg/dL High 0.40-1.00 [facility] [place] Comment on above: Result Comment: METH OD TRACEABLE TO IDMS STANDARD Performed By: #### C BCA, CMP, 2157-6, 01924-3, 68526-3, 16363-5, PINR, 71175-6, 2639-3 #### [facility] ([id number]) [address] [place] [address] 08655 GFR/1.73 sq M.predicted among non-blacks MDRD (S/P/Bld) [Vol rate/Area] 50 mL/min/{1.73_m2} Low >59 [facility] Comment on above: Result Comment: Reported eGFR is based on the CKD-EPI 2020 equation that does not use a race coefficient. Performed By: #### C BCA, CMP, 7-6, 47131-0, 84420-9, 54757-6, PINR, 00557-8, 2639-3 #### [facility] ([id number]) [address] [place] [address] 74223 Glucose [Mass/Vol] 137 mg/dL High 65-99 [facility] Comment on above: Performed By: #### C BCA, CMP, 2157-6, 53084-7, 07098-8, 14904-6, PINR, 81888-0, 2639-3 #### [facility] ([id number]) [address] [place] [address] 68978 Potassium [Moles/Vol] 3.8 mmol/L Normal 3.5-5.0 [facility] [place] Comment on above: Performed By: #### C BCA, CMP, 2157-6, 94650-1, 07164-4, 08998-6, PINR, 06108-1, 2639-3 #### [facility] ([id number]) [address] [place] [address] 30977 Protein [Mass/Vol] 8.1 g/dL High 6.0-8.0 [facility] Comment on above: Performed By: #### C BCA, CMP, 2157-6, 11061-6, 31429-1, 67593-1, PINR, 62624-0, 2639-3 #### [facility] ([id number]) [address] [place] [address] 00642 Sodium [Moles/Vol] 141 mmol/L Normal 134-146 [facility] Comment on above: Performed By: #### C BCA, CMP, 2157-6, 04447-3, 28693-3, 59553-2, PINR, 06200-3, 2639-3 #### [facility] ([id number]) [address] [place] [address] 16522 Urea nitrogen [Mass/Vol] 15 mg/dL Normal 5-23 [facility] Comment on above: Performed By: #### C BCA, CMP, 2157-6, 90494-4, 47565-2, 57043-4, PINR, 78706-1, 2639-3 #### [facility] ([id number]) [address] [place] [address] CTA CHESTon 08-28-2024 CT CTA CHEST [...] for acute or suspicious pathology in the bogtg-hv-ojia. The trachea and bronchi are patent. No [...] Saini MD on 08/28/2024 12:40 PM Normal [facility] Fibrin D-dimer DDU (PPP) [Ma ss/Vol]on 08-28-2024 D DIMER 5157 ng/mL DDU High <255 [facility] Comment on above: Result Comment: Results >=255ng/mL [...] level. Performed By: #### C BCA, CMP, 2156-10, , 63162-0, 38035-9, PINR, 92887-1, 2639-3 #### [facility] ([id number]) [address] [place] [address], [place] [address] MAGNESIUMon 08-28-2024 Magnesium [Mass/Vol] 1.9 mg/dL Normal 1.8-2.6 [facility] Comment on above: Performed By: #### C BCA, CMP, 2156-10, 57590-4, 21138-3, 57310-6, PINR, 50717-7, 2639-3 #### [facility] ([id number]) [address] [place] [address] 23077 Magnesium [Mass/Vol] 2.0 mg/dL Normal 1.8-2.6 [facility] Comment on above: Performed By: #### C BCA, CMP, 2156-6, 03066-7, 16631-2, 69361-5, PINR, 22779-5, 2639-3 #### [facility] ([id number]) [address] [place] [address] 48530 Myoglobin [Mass/Vol]on 08-28 SERUM MYOGLOBIN 1035.9 ng/mL High 14.3-65.8 [facility] Comment on above: Performed By: #### C BCA, CMP, 2156-6, 03631-1, 90533-5, 98654-2, PINR, 02476-2, 2639-3 #### [facility] ([id number]) [address] [place] [address] 86536 SERUM MYOGLOBIN 4039.8 ng/mL High 14.3-65.8 [facility] Comment on above: Performed By: #### C BCA, CMP, 2156-6, 19211-9, 62370-5, 43775-1, PINR, 51812-4, 2639-3 #### [facility] ([id number]) [address] [place] [address] 54420 POTASSIUMon 08-28-2024 Potassium [Moles/Vol] 3.2 mmol/L Low 3.5-5.0 [facility] [place] Comment on above: Performed By: #### C BCA, CMP, 2156-, 35117-6, 47800-7, 31053-5, PINR, 80502-1, 2639-3 #### [facility] ([id number]) [address] [place] [address] 58380 PROTIME AND INRon 08-28-2024 INR Coag (PPP) [Relative time] 1.3 {INR} High 0.9-1.2 [facility] Comment on above: Performed By: #### C BCA, CMP, 2157-6, 19771-5, 55148-8, 45799-0, PINR, 12593-4, 2639-3 #### [facility] ([id number]) [address] [place] [address] PT Coag (PPP) [Time] 15.0 s High 9.8-13.2 [facility] Comment on above: Result Comment: NEW REFERENCE RANGE Performed By: #### C BCA, CMP, 2157-6, 59016-8, 77286-9, 44822-3, PINR, 32615-1, 2639-3 #### [facility] ([id number]) [address] [place] [address] SARS/FLU A+B/RSV by NAAT/Mol ecularon 08-28-2024 SARS/FLU [...] operators who are performing tests using either [employer] or [employer] systems and is limited to laboratories that [...] repeat. Fact Sheet for Healthcare Providers: https://www.fda.gov/m edia/612929/download Fact Sheet for Patients: https://www.fda.gov/m edia/456938/download Normal [facility] Comment on above: Performed By: #### C BCA, CMP, 2156-10, 87518-0, 80790-7, 77614-2, PINR, 11728-8, 2639-3 #### [facility] ([id number]) [address] [place] [address], [place] [address] Troponin I.cardiac High sens itivity method [Mass/Vol]on 08-28-2024 3 HOUR TROP I, HIGH SENSITIVITY 42 ng/L High <16 [facility] Comment on above: Result Comment: Elevations of hs-Troponin may be due to causes other than myocardial ischemia. Recommend serial hs-Troponin testing be performed. For the initial evaluation and management of chest pain patients, refer to the algorithms linked below. Emergency Patient: [email or web address] Inpatient: [email or web address] 5&uh=acaea Performed By: #### C BCA, CMP, 2157-6, 56669-5, 09962-1, 28201-3, PINR, 67120-4, 2639-3 #### [facility] ([id number]) [address] [place] [address] 00715 1 HOUR TROP I, HIGH SENSITIVITY 34 ng/L High <16 [facility] Comment on above: Result Comment: Elevations of hs-Troponin may be due to causes other than myocardial ischemia. Recommend serial hs-Troponin testing be performed. For the initial evaluation and management of chest pain patients, refer to the algorithms linked below. Emergency Patient: [email or web address] Inpatient: [email or web address] 5&uh=acaea Performed By: #### C BCA, CMP, 2157-6, 18878-6, 75887-5, 93406-5, PINR, 50574-7, 2639-3 #### [facility] ([id number]) [address] [place] [address] 62132 TROPONIN I, HIGH SENSITIVITY 29 ng/L High <16 [facility] Comment on above: Result Comment: Elevations of hs-Troponin may be due to causes other than myocardial ischemia. Recommend serial hs-Troponin testing be performed. For the initial evaluation and management of chest pain patients, refer to the algorithms linked below. Emergency Patient: [email or web address]&uh=acaea Inpatient: [email or web address] 5&uh=acaea Performed By: #### C BCA, CMP, 2157-6, 63565-6, 20028-3, 27188-0, PINR, 63851-2, 2639-3 #### [facility] ([id number]) [address] [place] [address] 24811 XR CHEST 1 VWon 08-28-2024 XR CHEST 1 VW XR CHEST 1 VW Portable chest: HISTORY: Cough and weakness. Single view of the chest was obtained. Cardiac and mediastinal contours are within normal limits. Lungs clear. There is no vascular congestion or effusion. IMPRESSION: Negative exam. Finalized by Gian Gilbert MD on 08/28/2024 10:58 AM Normal [facility] aPTT Coag (PPP) [Time]on aPTT Coag (Bld) [Time] 31 s Normal 26-37 [facility] Comment on above: Result Comment: NEW REFERENCE RANGE Performed By: #### C BCA, CMP, 2157-6, 00857-5, 75711-4, 65849-7, PINR, 19967-4, 2639-3 #### [facility] ([id number]) [address] [place] [address] 26954 Urine Cultureon 08-22-2024 Bacteria identified Cx Nom (U) ORGANISM: Proteus mirabilis (O:PROMIR) [place] Count >100,000 Aerobic ROSE Charge (NMIC56) ---- [...] RESISTANT TO ALL B-LACTAM DRUGS. PERFORMED BY: [place] [address] PATHOLOGIST [employer] FORMER CLAIRE PATEL M.D. Normal The [facility] Comment on above: Performed By: #### C UU #### [address] Urine cultureOrdered By: Julio Gruber on 08-22-2024 Bacteria identified Cx Nom (U) Abnormal [facility] MM TOMOSYNTHESIS SCREENING B Ion 06-30-2024 [place] [address] Mammography Report Signed Patient: ANUPAMA VASQUEZ MR#: [id number] : 1970 Acct:[id number] Age/Sex: 54 / F ADM Date: 06/30/24 Loc: MAMMO Attending Dr: Fred Gracia NP Ordering Physician: Fred Gracia NP Results: Date of Service: 06/30/24 Follow Up: Procedure(s): MM tomosynthesis screening BI Accession Number(s): [id number] cc: Fred Gracia NP Patient Name: ANUPAMA VASQUEZ MR#: [id number] : 1970 Exam Date: 06/30/2024 Ordering Doctor: [...] age 56. LOCATION: The [facility] BREAST COMPOSITION: There are scattered areas [...] Signed By: 06/30/24 1133 DD/ 1132 TD/TT: Dentist Private Practice: [facility] Radiology, Radiologist, MD - 06/30/2024 [place] [address] Mammography Report Signed Patient: ANUPAMA VASQUEZ MR#: [id number] : 1970 Acct:[id number] Age/Sex: 54 / F ADM Date: 06/30/24 Loc: MAMMO Attending Dr: Fred Gracia NP Ordering Physician: Fred Gracia NP Results: Date of Service: 06/30/24 Follow Up: Procedure(s): MM tomosynthesis screening BI Accession Number(s): [id number] cc: Fred Gracia NP Patient Name: ANUPAMA VASQUEZ MR#: [id number] : 1970 Exam Date: 06/30/2024 Ordering Doctor: [...] age 56. LOCATION: The [facility] BREAST COMPOSITION: There are scattered areas [...] Signed By: 06/30/24 1133 DD/ 1132 TD/TT: Dentist Private Practice: [facility] Study observation (narrative) [facility] TOMOSYNTHESIS SCREENING B IOrdered By: Radiologist Radiology on 06-30-2024 [facility] Work Phone: No Panel Informationon 04-27 Alona [...] to verify the correct patient, procedure, equipment, telecommunications support and site/side marked as required. Patient was prepped and draped in the usual sterile fashion. Un[facility]in[facility] XR Shoulder - left 2 Viewson 02-25-2024 Imaging Result: Two views, AP and Lateral, in the office taken today saved to the permanent record shows post surgical change with acromioplasty/partial distal clavulectomy with appropriate coplaning. No acute fracture, dislocation, tumor or infection seen. [facility] Radiology Study observation (narrative) [facility] Main OR Intraoperative Recor don 02-11-2024 Main OR Intraoperative Record Main OR Intraoperative Record IntraOp Document Type FT Summary Primary Physician: Eliazar Brooks DO Finalized Date/Time: 02/11/24 14:09:06 Pt. Name: ANUPAMA VASQUEZ /Sex: 1970 Female Med Rec #: [id number] Physician: Eliazar Brooks DO Financial #: [id number] Pt. Type: A Room/Bed: Admit/Disch: 02/10/24 11:39:41 [...] 2 Entry 3 Case Attendee Cynthia BROWN, ASSISTANT CORPORATE SECRETARY, Eliazar Porter DO, CST, Marlyn Campuzano Role Performed ASSISTANT CORPORATE SECRETARY Surgeon - Primary Scrub - Primary Time [...] Attendee Adams Pak Laura C Role Performed Composite Laminator - Primary Scrub - Primary Time In [...] Yes PreOp Antibiotic Yes Given Time Out Mitkarlee BROWN, ASSISTANT CORPORATE SECRETARY, Time Out Complete 02/10/24 14:35:00 Participants NDread, Eliazar Brooks DO, Marlyn Kate CST, Adams [...] and tissue Entry 1 Skin Integrity Intact, [place], Warm, & Skin Abnormality No Dry Outcomes Met? Yes Last Modified By: Adams Pak 02/10/24 15:02:50 Post-Care Text: The patient is free from signs and symptoms of injury caused by extraneous objects Patient Positioning FT Pre-Care Text: Identifies physical alterations that require additional precautions for procedure-specific positioning, verifies presence of prosthetics (more content not included)... Normal [facility] Operative Reporton Operative Report Operative Report SURGERY DATE: 02/10/2024 MACHINERY MOVER: Marlyn Kate C.F.A. PREOPERATIVE DIAGNOSIS: Left shoulder [...] a lateral portal incision utilizing a 90-degree Louise wand as well as 5.0 bone cutter, [...] Satisfactory Eliazar Brooks D.O. ca Dictated: 02/10/2024 [id number] Transcribed: 02/10/2024 [facility] Comment on above: Result Comment: Elec [...] scheduled appointment Call for any problems. Where: [address] [place] [address]- Business (1) Medications What How Much When [...] needed for shoulder surgical pain. Pickup at [facility] Unchanged ergocalciferol (Vitamin D) 1,200 International [...] bedtime) as needed for Sleep Pharmacy Information [facility]: [address] [place], [place] [id number] [phone] Test Results No qualifying data available. Allergies No Known Allergies Problems Ongoing - Any problem that you are currently receiving treatment for. Menopause Mini stroke MS - Multiple sclerosis Smoker Education Materials [place], [place] [facility] AFTER YOUR SHOULDER ARTHROSCOPY [...] have any (more content not included)... Normal [facility] Comment on above: Result Comment: Elec tronically Signed By: Aime ROSA, Brigida Lantigua\.br\Date and Time Signed: 02/10/24 15:46 EDT Main OR PACU I Recordon 01-19 Main OR PACU I Record Main OR PACU I Rec ord PACU Phase I Document Type FT Summary Primary Physician: Eliazar Brooks DO Finalized Date/Time: 02/10/24 16:23:54 Pt. Name: ANUPAMA VASQUEZ/Sex: 1970 Female Med Rec #: [id number] Physician: Eliazar Brooks DO Financial #: [id number] Pt. Type: A Room/Bed: Admit/Disch: 02/10/24 11:39:41 [...] By: Meera Rose RN 02/10/24 16:23 Normal [facility] Main OR PACU II Recordon Main OR PACU II Record Main OR PACU II Record PACU Phase II Document Type FT Summary Primary Physician: Eliazar Brooks DO Finalized Date/Time: 02/10/24 18:07:34 Pt. Name: ANUPAMA VASQUEZ/Sex: 1970 Female Med Rec #: [id number] Physician: Eliazar Brooks DO Financial #: [id number] Pt. Type: A Room/Bed: Admit/Disch: 02/10/24 11:39:41 [...] Signed By: Sherron Deleon RN 02/10/24 18:07 [facility] Main OR Preoperative Recordo n 02-10-2024 Main OR Preoperative Record Main OR Preoperative Record PreOp Document Type FT Summary Primary Physician: Eliazar Brooks DO Finalized Date/Time: 02/10/24 15:51:36 Pt. Name: ANUPAMA VASQUEZ/Sex: 1970 Female Med Rec #: [id number] Physician: Eliazar Brooks DO Financial #: [id number] Pt. Type: A Room/Bed: AS01/18 Admit/Disch: 02/10/24 [...] 02/10/24 14:59 Adams Pak 02/10/24 15:51 Normal [facility] Proceduralon 02-10-2024 Procedural Procedural Patient: ANPUAMA VASQUEZ Age: 53 years Sex: Female : 1970 Associated Diagnoses: None Author: Cynthia BROWN, VALERY, Queen Justen Procedure Nerve Block Block Type: [...] Using maximal sterile barrier technique per current [facility] guidelines including hand hygeine, Guidance (Ultrasound used [...] Cynthia CRNA under Dr Vega's supervision.. Normal [facility] Inpatient Patient Summaryon 02-06-2024 Inpatient Patient Summary Inpatient Patient Summary [facility] [address] [place], [place] [address] [facility] Clinical Discharge Instructions PERSON INFORMATION Name: ANUPAMA VASQUEZ PHYSICIANS Admitting Physician: Eliazar Brooks DO Attending Physician: Eliazar Brooks DO PCP: FRANCES AGUILERA CNP Discharge Diagnosis: Impingement of left shoulder Comment: PATIENT EDUCATION INFORMATION Instructions: Zbigniew - After Your Shoulder Arthroscopy (Revised 06/17/14) (CUSTOM) Medication Leaflets: Follow up: With: Address: When: Eliazar Brooks [address] [place] [address] [facility] (1) Comments: Keep scheduled appointment Type Location Start [facility] Surgery [facility] 02/10/2024 2:30 PM 02/10/2024 3:30 [...] Mouth 2 times a day. Comment: Normal [facility] Outpatient Surgery Discharge Instructionon 02-06-2024 Outpatient Surgery Discharge Instruction Outpatient Surgery Discharge Instruction [place] [id number] Patient Discharge Instructions PERSON INFORMATION Name: ANUPAMA VASQUEZ Date of : 1970 Current Date: [...] Follow up: With: Address: When: Eliazar Brooks [address] [place] [address] Business (1) Comments: Keep scheduled appointment Type Location Start [facility] Surgery [facility] 02/10/2024 2:30 PM 02/10/2024 3:30 [...] to serve you. Thank you for choosing [facility] HERE ARE THE MEDICATION CHANGES [...] times a day. PATIENT EDUCATION INFORMATION Instructions: [place], [place] [facility] AFTER YOUR SHOULDER ARTHROSCOPY [...] medication as (more content not included)... Normal [facility] XR Chest 2 Viewson 4 XR [...] mGy = . DAP = . Normal [facility] BMPon 02-05-2024 Anion gap [Moles/Vol] 11 mmol/L Normal 6-16 [facility] Comment on above: Performed By: #### 2 [id number] #### [facility] [address] [place] [address] Calcium [Mass/Vol] 9.4 mg/dL Normal 8.9-11.1 [facility] Comment on above: Performed By: #### 2 194172 #### [facility] [address] [place] [address] Chloride [Moles/Vol] 104 mmol/L Normal 101-111 [facility] Comment on above: Performed By: #### 2 480705 #### [facility] [address] [place] [address] CO2 [Moles/Vol] 31 mmol/L Normal 21-31 [facility] Comment on above: Performed By: #### 2 884555 #### [facility] [address] [place] [address] Creatinine [Mass/Vol] 0.9 mg/dL Normal 0.5-1.3 [facility] Comment on above: Performed By: #### 2 964320 #### [facility] [address] [place] [address] Glucose [Mass/Vol] 93 mg/dL Normal 55-199 [facility] Comment on above: Performed By: #### 2 021815 #### [facility] [address] [place] [address] Potassium [Moles/Vol] 4.1 mmol/L Normal 3.5-5.3 [facility] Comment on above: Performed By: #### 2 368351 #### [facility] [address] [place] [address] Sodium [Moles/Vol] 142 mmol/L Normal 135-145 [facility] Comment on above: Performed By: #### 2 803666 #### [facility] [address] [place] [address] Urea nitrogen [Mass/Vol] 11 mg/dL Normal 5-21 [facility] Comment on above: Performed By: #### 2 489488 #### [facility] [address] [place] [address] Urea nitrogen/Creatinine [Mass ratio] 12 No Units Normal 10-20 [facility] Comment on above: Performed By: #### 2 781642 #### [facility] [address] [place] [address] CBC w/ Auto Diffon 4 Basophils/100 WBC (Bld) 0.6 % Normal 0.0-2.0 [facility] Comment on above: Performed By: #### 2 069219 #### [facility] [address] [place] [address] Basophils/Leukocytes Auto (Bld) [Pure # fraction] 0.0 E9/L Normal 0.0-0.2 [facility] Comment on above: Performed By: #### 2 979868 #### [facility] [address] [place] [address] Eosinophils (Bld) [#/Vol] 0.1 E9/L Normal 0.0-0.5 [facility] [facility] Comment on above: Performed By: #### 2 [id number] #### [facility] [address] [place] [address] Eosinophils/100 WBC (Bld) 1.2 % Normal 0.0-8.0 [facility] Comment on above: Performed By: #### 2 615458 #### [facility] [address] [place] [address] Erythrocyte distribution width (RBC) [Ratio] 17.5 % High 10.9-14.2 [facility] Comment on above: Performed By: #### 2 284635 #### [facility] [address] [place] [address] Hematocrit (Bld) [Volume fraction] 37.9 % Normal 34.0-46.0 [facility] Comment on above: Performed By: #### 2 735356 #### [facility] [address] [place] [address] Hemoglobin (Bld) [Mass/Vol] 12.6 g/dL Normal 12.0-16.0 [facility] Comment on above: Performed By: #### 2 336427 #### [facility] [address] [place] [address] Lymphocytes (Bld) [#/Vol] 0.8 E9/L Low 1.0-4.0 [facility] Comment on above: Performed By: #### 2 333491 #### [facility] [address] [place] [address] Lymphocytes/100 WBC (Bld) 11.1 % Low 14.0-50.0 [facility] Comment on above: Performed By: #### 2 491630 #### [facility] [address] [place] [address] MCH (RBC) [Entitic mass] 27.8 pg Normal 27.0-34.0 [facility] Comment on above: Performed By: #### 2 592170 #### [facility] [address] [place] [address] MCHC (RBC) [Mass/Vol] 33.2 g/dL Normal 31.4-36.0 [facility] Comment on above: Performed By: #### 2 360872 #### [facility] [address] [place] [address] MCV (RBC) [Entitic vol] 83.9 fL Normal 80.0-100.0 [facility] Comment on above: Performed By: #### 2 338296 #### [facility] [address] [place] [address] Monocytes (Bld) [#/Vol] 0.8 E9/L Normal 0.2-1.0 [facility] Comment on above: Performed By: #### 2 965145 #### [facility] [address] [place] [address] Neutrophils (Bld) [#/Vol] 5.4 E9/L Normal 2.0-7.5 [facility] Comment on above: Performed By: #### 2 002271 #### [facility] [address] [place] [address] Neutrophils/100 WBC (Bld) 76.4 % High 36.0-75.0 [facility] Comment on above: Performed By: #### 2 290911 #### [facility] [address] [place] [address] Platelet 195.0 E9/L Normal 150.0-500. 0 [facility] Comment on above: Performed By: #### 2 636131 #### [facility] [address] [place] [address] Platelet mean volume (Bld) [Entitic vol] 10.4 fL Normal 6.4-10.8 [facility] Comment on above: Performed By: #### 2 200930 #### [facility] [address] [place] [address] RBC (Bld) [#/Vol] 4.5 E12/L Normal 4.3-5.9 [facility] Comment on above: Performed By: #### 2 274599 #### [facility] [address] [place] [address] WBC corrected for nucl RBC Auto (Bld) [#/Vol] 7.1 E9/L Normal 4.0-11.0 [facility] Comment on above: Performed By: #### 2 699067 #### [facility] [address] [place] [address] eGFRon 02-05-2024 eGFR 75 mL/min/1.73 m2 Normal >=59 [facility] Comment on above: Order Comment: Order added by Discern Expert. Performed By: #### 1 [id number] ####[facility] [address] [place] [address] TBH UA (CLEAN/CATCH) MICROSC OPIC IF INDICATEon [...] Healthcar e CNPNon 12-19-2023 CNPN Telephone (MARK) ANUPAMA VASQUEZ ([id number]) 1970 F Date Time Provider Department 12/19/23 NURSE [facility] [place] During your visit today, we recorded the following information about you: Teagan MoniqueChaunceya 12/19/2023 8:24 AM Signed Called patient to [...] by TEAGAN SHE MONIQUE on 12/19/23 Normal [facility] MR SHOULDER LEFT WO IV CONTR [...] 7-8 years ago So 08-21-2023 [facility] ANUP[facility] VASQUEZ ([id number]) 1970 F Date Time Provider Department 08/21/23 [facility] During your visit today, we recorded the following information about you: Renuka Ellison 08/21/2023 4:19 PM Signed Kriss Call Name of caller : Anupama Vasquez Relationship to patient: Self Return call phone number : [phone] Reason for call : Other : Brief [...] of spine [M48.02] Order(s):CONSULT TO SPINE SURGERY [[id number]] Order #: [id number]: 1 FUTURE Prescriptions as of 08/22/2023 - [...] Encounter Status:Closed by ELIZABETH VICTORIA [facility] ANUP[facility] VASQUEZ ([id number]) 1970 F Date Time Provider Department 07/15/23 [...] since c-spine MRI was completed locally outside [facility] in April. Orders already placed Elizabeth Victoria RN 07/16/2023 2:21 PM Signed Called patient, no answer. Message left to return call to office when able. MOE Spencer Megan A, RN 07/17/2023 9:04 AM Signed Called patient, no answer. Message left indicating MYChart message would be sent with reason for [...] sclerosis (HCC) [G35] Order(s):MRI BRAIN WO/W IVCON [[id number]] Order #: [id number] FUTURE iv contrast (will be provided with [...] Encounter Status:Closed by ELIZABETH VICTORIA on 07/17/[address] [facility] CNOVon 07-10-2023 CNOV Office Visit (PAINLN ) ANUPAMA VASQUEZ ([id number]) 1970 F Date Time Provider Department 07/10/23 6:00 PM [place] [place] [facility] During your visit today, we recorded the following information about you: Pulse Weight Height 89/minute 134.3 kg 1.676 m [place], 07/12/2023 11:26 AM Signed [facility] Initial Evaluation July 10, 2023 This appointment was requested by Jessica Clarke PA-C, for my medical opinion regarding the evaluation and management of the patient's Anupama Vasquez problems, and my final recommendations will be communicated to the requesting health care provider by way of the shared medical record for internal providers or letter via the [employer] for external providers. SUBJECTIVE: Anupama Vasquez a 53 year old presents to [facility] Department, accompanied by [...] PT several years ago (+) relief Chris [place] Alcohol Abuse - No Drug Abuse - [...] No history of dysuria, frequency or incontinence CONTENT CURATOR: Negative for abnormal vaginal bleeding, abnormal vaginal discharge MUSCULOSKELETAL: Negative for joint pain or swelling, back pain or musc (more content not included)... Normal [facility] CBC W Auto Differential pane l (Bld)on 05-22-2023 Basophils (Bld) [#/Vol] 0.05 10*3/uL Normal <0.11 [facility] Comment on above: Order Comment: Speci men Type: BLOOD SPECIMENOrdering Facility: [facility] Address: [address] [place] [address] Performed By: #### 5 7021-8 ####[facility] LABCLIA [id number] [place] [address] [place] Basophils/100 WBC (Bld) 0.5 % Normal [facility] Comment on above: Order Comment: Speci men Type: BLOOD SPECIMENOrdering Facility: [facility] Address: [address] [place] [address] Performed By: #### 5 7021-8 ####[facility] LABCLIA [id number] [place] [address] [place] Differential cell count method Nom (Bld) Auto Normal [facility] Comment on above: Order Comment: Speci men Type: BLOOD SPECIMENOrdering Facility: [facility] Address: [address] [place] [address] Performed By: #### 5 7021-8 ####[facility] LABCLIA [id number] [place] [address] [place] Eosinophils (Bld) [#/Vol] 0.19 10*3/uL Normal <0.46 [facility] Comment on above: Order Comment: Speci men Type: BLOOD SPECIMENOrdering Facility: [facility] Address: [address] [place] [address] Performed By: #### 5 7021-8 ####[facility] LABCLIA [id number] [place] [address] [place] Eosinophils/100 WBC (Bld) 2.1 % Normal [facility] Comment on above: Order Comment: Speci men Type: BLOOD SPECIMENOrdering Facility: [facility] Address: [address] [place] [address] Performed By: #### 5 7021-8 ####[facility] LABCLIA [id number] [place] [address] [place] Erythrocyte distribution width (RBC) [Ratio] 15.5 % High 11.5-15.0 [facility] Comment on above: Order Comment: Speci men Type: BLOOD SPECIMENOrdering Facility: [facility] Address: [address] [place] [address] Performed By: #### 5 7021-8 ####[facility] LABCLIA [id number] [place] [address] [place] Hematocrit (Bld) [Volume fraction] 42.1 % Normal 36.0-46.0 [facility] Comment on above: Order Comment: Speci men Type: BLOOD SPECIMENOrdering Facility: [facility] Address: [address] [place] [address] Performed By: #### 5 7021-8 ####[facility] LABCLIA [id number] [place] [address] [place] Hemoglobin (Bld) [Mass/Vol] 12.9 g/dL Normal 11.5-15.5 [facility] Comment on above: Order Comment: Speci men Type: BLOOD SPECIMENOrdering Facility: [facility] Address: [address] [place] [address] Performed By: #### 5 7021-8 ####[facility] LABCLIA [id number] [place] [address] [place] Immature granulocytes (Bld) [#/Vol] 0.04 10*3/uL Normal <0.10 [facility] Comment on above: Order Comment: Speci men Type: BLOOD SPECIMENOrdering Facility: [facility] Address: [address] [place] [address] Performed By: #### 5 7021-8 ####[facility] LABCLIA [id number] [place] [address] [place] Immature granulocytes/100 WBC (Bld) 0.4 % Normal [facility] Comment on above: Order Comment: Speci men Type: BLOOD SPECIMENOrdering Facility: [facility] Address: [address] [place] [address] Performed By: #### 5 7021-8 ####[facility] LABCLIA [id number] [place] [address] [place] Lymphocytes (Bld) [#/Vol] 0.82 10*3/uL Low 1.00-4.00 [facility] Comment on above: Order Comment: Speci men Type: BLOOD SPECIMENOrdering Facility: [facility] Address: [address] [place] [address] Performed By: #### 5 7021-8 ####[facility] LABIA [id number] [place] [address] [place] Lymphocytes/100 WBC (Bld) 9.0 % Normal [facility] Comment on above: Order Comment: Speci men Type: BLOOD SPECIMENOrdering Facility: [facility] Address: [address] [place] [address] Performed By: #### 5 7021-8 ####[facility] LABIA [id number] [place] [address] [place] MCH (RBC) [Entitic mass] 26.9 pg Normal 26.0-34.0 [facility] Comment on above: Order Comment: Speci men Type: BLOOD SPECIMENOrdering Facility: [facility] Address: [address] [place] [address] Performed By: #### 5 7021-8 ####[facility] LABIA [id number] [place] [address] [place] MCHC (RBC) [Mass/Vol] 30.6 g/dL Normal 30.5-36.0 [facility] Comment on above: Order Comment: Speci men Type: BLOOD SPECIMENOrdering Facility: [facility] Address: [address] [place] [address] Performed By: #### 5 7021-8 ####[facility] LABIA [id number] [place] [address] [place] MCV (RBC) [Entitic vol] 87.9 fL Normal 80.0-100.0 [facility] Comment on above: Order Comment: Speci men Type: BLOOD SPECIMENOrdering Facility: [facility] Address: [address] [place] [address] Performed By: #### 5 7021-8 ####[facility] LABCLIA [id number] [place] [address] [place] Monocytes (Bld) [#/Vol] 0.93 10*3/uL High <0.87 [facility] Comment on above: Order Comment: Speci men Type: BLOOD SPECIMENOrdering Facility: [facility] Address: [address] [place] [address] Performed By: #### 5 7021-8 ####[facility] LABCLIA [id number] [place] [address] [place] Monocytes/100 WBC (Bld) 10.2 % [facility] Comment on above: Order Comment: Speci men Type: BLOOD SPECIMENOrdering Facility: [facility] Address: [address] [place] [address] Performed By: #### 5 7021-8 ####[facility] LABCLIA [id number] [place] [address] [place] Neutrophils (Bld) [#/Vol] 7.07 10*3/uL Normal 1.45-7.50 [facility] Comment on above: Order Comment: Speci men Type: BLOOD SPECIMENOrdering Facility: [facility] Address: [address] [place] [address] Performed By: #### 5 7021-8 ####[facility] LABCLIA [id number] [place] [address] [place] Neutrophils/100 WBC (Bld) 77.8 % Normal [facility] Comment on above: Order Comment: Speci men Type: BLOOD SPECIMENOrdering Facility: [facility] Address: [address] [place] [address] Performed By: #### 5 7021-8 ####[facility] LABCLIA [id number] [place] [address] [place] Nucleated RBC (Bld) [#/Vol] 10*3/uL Normal <0.01 [facility] Comment on above: Order Comment: Speci men Type: BLOOD SPECIMENOrdering Facility: [facility] Address: [address] [place] [address] Performed By: #### 5 7021-8 ####[facility] LABCLIA [id number] [address] [address] [place] Nucleated RBC/100 WBC (Bld) [Ratio] 0.0 /100 WBC Normal [facility] Comment on above: Order Comment: Speci men Type: BLOOD SPECIMENOrdering Facility: [facility] Address: [address] [place] [address] Performed By: #### 5 7021-8 ####[facility] LABCLIA [id number] [place] [address] [place] Platelet mean volume (Bld) [Entitic vol] 12.4 fL Normal 9.0-12.7 [facility] Comment on above: Order Comment: Speci men Type: BLOOD SPECIMENOrdering Facility: [facility] Address: [address] [place] [address] Performed By: #### 5 7021-8 ####[facility] LABIA [id number] [place] [address] [place] Platelets (Bld) [#/Vol] 208 10*3/uL Normal 150-400 [facility] Comment on above: Order Comment: Speci men Type: BLOOD SPECIMENOrdering Facility: [facility] Address: [address] [place] [address] Performed By: #### 5 7021-8 ####[facility] LABCLIA [id number] [place] [address] [place] RBC (Bld) [#/Vol] 4.79 10*6/uL Normal 3.90-5.20 [facility] Comment on above: Order Comment: Speci men Type: BLOOD SPECIMENOrdering Facility: [facility] Address: [address] [place], [place] [address] Performed By: #### 5 7021-8 ####[facility] LABCLIA [id number] [place] [address] [place] WBC (Bld) [#/Vol] 9.10 10*3/uL Normal 3.70-11.00 [facility] Comment on above: Order Comment: Speci men Type: BLOOD SPECIMENOrdering Facility: [facility] Address: [address] [place] [address] Performed By: #### 5 7021-8 ####[facility] LABCLIA [id number] [place] [address] [place] CD19 ABSOLUTE COUNTon 2023 CD3-CD19+ cells (Bld) [#/Vol] 219 cells/uL Normal 75-660 [facility] Comment on above: Order Comment: Speci men Type: BLOOD SPECIMENOrdering Facility: [facility] Address: [address] [place] [address] Performed By: #### A BS19 ####[facility] LABCLIA [id number] [place] [address] [place] CD3-CD19+ cells/100 cells (Bld) 23 % High 5-22 [facility] Comment on above: Order Comment: Speci men Type: BLOOD SPECIMENOrdering Facility: [facility] Address: [address] [place] [address] Performed By: #### A BS19 ####[facility] LABCLIA [id number] [place] [address] [place] Lymphocytes/100 WBC FC (Bld) Normal [facility] Comment on above: Order Comment: Speci men Type: BLOOD SPECIMENOrdering Facility: [facility] Address: [address] [place] [address] Performed By: #### A BS19 ####[facility] LABCLIA [id number] [place] [address] [place] CNOVon 05-22-2023 CNOV Office Visit (NTLORA ) PEDROANUPAMA ([id number]) 1970 F Date Time Provider Department 05/22/23 8:00 AM INFUSION CA CHAIR 2 NTLORA During your visit today, we recorded the following information about you: Temperature Pulse Respiration Blood pressure 97 degrees 86/minute 18/minute 140/74 Weight 131 kg She Brand, MOE 05/22/2023 11:49 AM Signed Since your last [...] her tubes tied. Referring Provider: SARTHAK ESCOBAR [[id number]] Allergies As of Date: 05/22/2023 (No Known Allergies) Date Reviewed: 10/11/2022 Reviewed by: Maryam Cabrera, MOE - Fully Assessed Primary Visit Diagnosis:Multiple sclerosis (HCC) [G35] Other Visit Diagnosis:Multiple sclerosis, relapsing-remitting (HCC) [G35] Order(s):TREATMENT PARAMETER-NOT NEEDED [[id number]] Order #: [id number]: 1 BCN [facility] NURSING COMMUNICATION [[id number]] Order #: [id number]: 1 BCN NURSING COMMUNICATION [[id number]] Order #: [id number]: 1 CD19 ABSOLUTE COUNT [SQABS19] Order #: [id number] FUTURE [] methylPREDNISolone sod succinate(PF) 100 mg injection (SOLU-Medrol)Disp: Rfl: [] acetaminophen 1,000 mg tab(s) (TYLENOL)Disp: Rfl: [] diphenhydrAMINE 50 mg (BENADRYL)Disp: Rfl: [] ocrelizumab 600 mg in NaCl 0.9% 500 mL (OCREVUS)Disp: Rfl: CBC + DIFF [SQCBCDIF] Order #: [id number]. #:[id number] COMP METABOLIC PANEL [SQCMP] Order #: [id number]. #:[id number] IGG [SQIGG] Order #: [id number]. #:[id number] IGM [SQIGM] Order #: [id number]. #:[id number] CD19 ABSOLUTE COUNT [SQABS19] Order #: [id number]. #:[id number] Prescriptions as of 05/23/2023 - lisinopril (ZESTRIL) [...] Status:Closed by SHE BRAND on 05/22/23 Normal [facility] Comprehensive metabolic 2000 panelon 05-22-2023 Albumin [Mass/Vol] 4.0 g/dL Normal 3.9-4.9 [facility] Comment on above: Order Comment: Speci men Type: BLOOD SPECIMENOrdering Facility: [facility] Address: [address] [place] [address] Performed By: #### 2 4323-8 ####[facility] LABCLIA [id number] [place] [address] [place] ALP [Catalytic activity/Vol] 90 U/L Normal 34-123 [facility] Comment on above: Order Comment: Speci men Type: BLOOD SPECIMENOrdering Facility: [facility] Address: [address] [place] [address] Performed By: #### 2 4323-8 ####[facility] LABCLIA [id number] [place] [address] [place] ALT [Catalytic activity/Vol] 23 U/L Normal 7-38 [facility] Comment on above: Order Comment: Speci men Type: BLOOD SPECIMENOrdering Facility: [facility] Address: [address] [place] [address] Performed By: #### 2 4323-8 ####[facility] LABCLIA [id number] [place] [address] [place] Anion gap [Moles/Vol] 13 mmol/L Normal 9-18 [facility] Comment on above: Order Comment: Speci men Type: BLOOD SPECIMENOrdering Facility: [facility] Address: [address] [place] [address] Performed By: #### 2 4323-8 ####[facility] LABCLIA [id number] [place] [id number] [place] AST [Catalytic activity/Vol] 25 U/L Normal 13-35 [facility] Comment on above: Order Comment: Speci men Type: BLOOD SPECIMENOrdering Facility: [facility] Address: [address] [place] [address] Performed By: #### 2 4323-8 ####[facility] LABCLIA [id number] [place] [address] [place] Bilirubin [Mass/Vol] 0.3 mg/dL Normal 0.2-1.3 [facility] Comment on above: Order Comment: Speci men Type: BLOOD SPECIMENOrdering Facility: [facility] Address: [address] [place] [address] Performed By: #### 2 4323-8 ####[facility] LABCLIA [id number] [place] [address] [place] Calcium [Mass/Vol] 9.4 mg/dL Normal 8.5-10.2 [facility] Comment on above: Order Comment: Speci men Type: BLOOD SPECIMENOrdering Facility: [facility] Address: [address] [place] [address] Performed By: #### 2 4323-8 ####[facility] LABCLIA [id number] [place] [address] [place] Chloride [Moles/Vol] 103 mmol/L Normal 97-105 [facility] Comment on above: Order Comment: Speci men Type: BLOOD SPECIMENOrdering Facility: [facility] Address: [address] [place] [address] Performed By: #### 2 4323-8 ####[facility] LABCLIA [id number] [place] [address] [place] CO2 [Moles/Vol] 27 mmol/L Normal 22-30 [facility] Comment on above: Order Comment: Speci men Type: BLOOD SPECIMENOrdering Facility: [facility] Address: [address] [place] [address] Performed By: #### 2 4323-8 ####[facility] LABCLIA [id number] [place] [address] [place] Creatinine [Mass/Vol] 1.04 mg/dL High 0.58-0.96 [facility] Comment on above: Order Comment: Speci men Type: BLOOD SPECIMENOrdering Facility: [facility] Address: [address] [place] [address] Performed By: #### 2 4323-8 ####[facility] LABCLIA [id number] [address] [place] Creatinine and Glomerular filtration rate.predicted panel (S/P/Bld) 64 mL/min/1.73m??? Normal >=60 [facility] Comment on above: Order Comment: Rebeca ruelas Type: BLOOD SPECIMENOrdering Facility: [facility] Address: [address] [place] [address] Result Comment: Karyn mated Glomerular Filtration Rate [...] actual GFR. Performed By: #### 2 4323-8 ####[facility] LABCLIA [id number] [place] [address] [place] Glucose [Mass/Vol] 88 mg/dL Normal 74-99 [facility] Comment on above: Order Comment: Rebeca ruelas Type: BLOOD SPECIMENOrdering Facility: [facility] Address: [address] [place] [address] Result Comment: The [place] Diabetes Association (ADA) provides guidance for cutoff [...] Standards of Medical Care in Diabetes 2016, [place] Diabetes Association. Diabetes Care. 2016.39(Suppl 1). Performed By: #### 2 4323-8 ####[facility] LABCLIA [id number] [place] [address] [place] Potassium [Moles/Vol] 3.7 mmol/L Normal 3.7-5.1 [facility] Comment on above: Order Comment: Speci men Type: BLOOD SPECIMENOrdering Facility: [facility] Address: [address] [place] [address] Performed By: #### 2 4323-8 ####[facility] LABCLIA [id number] [place] [address] [place] Protein [Mass/Vol] 7.1 g/dL Normal 6.3-8.0 [facility] Comment on above: Order Comment: Speci men Type: BLOOD SPECIMENOrdering Facility: [facility] Address: [address] [place] [address] Performed By: #### 2 4323-8 ####[facility] LABCLIA [id number] [place] [address] [place] Sodium [Moles/Vol] 143 mmol/L Normal 136-144 [facility] Comment on above: Order Comment: Speci men Type: BLOOD SPECIMENOrdering Facility: [facility] Address: [address] [place] [address] Performed By: #### 2 4323-8 ####[facility] LABCLIA [id number] [place] [address] [place] Urea nitrogen [Mass/Vol] 17 mg/dL Normal 7-21 [facility] Comment on above: Order Comment: Speci men Type: BLOOD SPECIMENOrdering Facility: [facility] Address: [address] [place] [address] Performed By: #### 2 4323-8 ####[facility] LABCLIA [id number] [place] [address] [place] IgG SerPl-mCncon 05-22-2023 IgG [Mass/Vol] 954 mg/dL Normal 700-1600 [facility] Comment on above: Order Comment: Speci men Type: BLOOD SPECIMENOrdering Facility: [facility] Address: [address] [place] [address] Performed By: #### 2 465-3, 2472-9 ####[facility] LABCLIA [id number] [place] [id number] [place] IgM SerPl-mCncon 05-22-2023 IgM [Mass/Vol] 74 mg/dL Normal 40-230 [facility] Comment on above: Order Comment: Speci men Type: BLOOD SPECIMENOrdering Facility: [facility] Address: [address] [place] [address] Performed By: #### 2 465-3, 2472-9 ####[facility] LABCLIA [id number] [address] [place] CNPJanene 05-14-2023 CNPN Telephone (NIQ) ANUPAMA VASQUEZ ([id number]) 1970 F Date Time Provider Department 05/14/23 [...] by: Maryam Cabrera, MOE - Fully Assessed Reason for Visit: Appointment [...] Status:Closed by MICHELLE LUJAN on 05/14/23 Normal [facility] PREG HCG QUALon 09-21-2022 , QUAL Negative Normal NEGATIVE [facility] Comment on above: Performed By: #### P REG #### [facility] [address] [place] [address] Dr. Angel Li IMMUNOGLOBULIN IGG QUANTITAT IVEon 06-06-2022 Immunoglobulin G, Qn, Serum 1032 mg/dL Normal [phone] [facility] Comment on above: Performed By: #### I MIGGQN #### [facility] [address] [place] [address] Dr. Angel Li IMMUNOGLOBULIN IGM QUANTITAT IVEon 06-06-2022 Immunoglobulin M, Qn, Serum 46 mg/dL Normal 26-217 [facility] Comment on above: Performed By: #### I MIGMQN #### [facility] [address] [place] [address] [address] Angel Li CBC AUTO DIFFon 06-05-2022 BASO # 0.0 103/ul Normal 0.0-0.1 [facility] Comment on above: Performed By: #### C BC #### [facility] [address] [place] [address] Dr. Angel Li Basophils/100 WBC (Bld) 0.5 % Normal 0.2-2.0 [facility] Comment on above: Performed By: #### C BC #### [facility] [address] [place] [address] [address] Angel Li EO # 0.2 103/ul Normal 0.0-0.7 [facility] Comment on above: Performed By: #### C BC #### [facility] [address] [place] [address] [address] Angel Li Eosinophils/100 WBC (Bld) 2.6 % Normal 0.9-7.0 [facility] Comment on above: Performed By: #### C BC #### [facility] [address] [place] [address] Dr. Angel Li Erythrocyte distribution width (RBC) [Ratio] 14.5 % Normal 11.0-15.0 [facility] Comment on above: Performed By: #### C BC #### [facility] [address] [place] [address] Dr. Angel Li Hematocrit (Bld) [Volume fraction] 36.5 % Normal 36.0-48.0 [facility] Comment on above: Performed By: #### C BC #### [facility] [address] [place] [address] Dr. Angel Li Hemoglobin (Bld) [Mass/Vol] 11.8 g/dL Critically low 12.0-16.0 [facility] Comment on above: Performed By: #### C BC #### [facility] [address] [place] [address] Dr. Angel Li IG # 0.03 10e3/ul Normal 0.00-0.03 [facility] Comment on above: Performed By: #### C BC #### [facility] [address] [place] [address] Dr. Angel Li IG % 0.4 % Normal 0.0-0.5 [facility] Comment on above: Performed By: #### C BC #### [facility] [address] [place] [address] Dr. Angel Li LYMPH # 0.8 103/ul Critically low 1.2-3.8 [facility] Comment on above: Performed By: #### C BC #### [facility] [address] [place] [address] [address] Angel Li Lymphocytes/100 WBC (Bld) 9.8 % Critically low 20.5-60.0 [facility] Comment on above: Performed By: #### C BC #### [facility] [address] [place] [address] Dr. Angel Li MANUAL DIFF REQ NO Normal [facility] Comment on above: Performed By: #### C BC #### [facility] [address] [place] [address] Dr. Angel Li MCH (RBC) [Entitic mass] 29.0 pg Normal 26.7-34.0 [facility] Comment on above: Performed By: #### C BC #### [facility] [address] [place] [address] Dr. Angel Li MCHC (RBC) [Mass/Vol] 32.3 g/dL Normal 29.9-35.2 [facility] Comment on above: Performed By: #### C BC #### [facility] [address] [place] [address] Dr. Angel Li MCV (RBC) [Entitic vol] 89.7 fL Normal 81.0-99.0 [facility] Comment on above: Performed By: #### C BC #### [facility] [address] [place] [address] Dr. Angel Li MONO # 1.0 103/ul Critically high 0.3-0.8 [facility] Comment on above: Performed By: #### C BC #### [facility] [address] [place] [address] Dr. Angel Li Monocytes/100 WBC (Bld) 13.0 % Critically high 1.7-12. 0 [facility] Comment on above: Performed By: #### C BC #### [facility] [address] [place] [address] Dr. Angel Li NEUT # 5.9 103/ul Normal 1.4-6.5 [facility] Comment on above: Performed By: #### C BC #### [facility] [address] [place] [address] [address] Angel Li Neutrophils/100 WBC (Bld) 73.7 % Normal 43.0-75.0 [facility] Comment on above: Performed By: #### C BC #### [facility] [address] [place] [address] [address] Angel Li Platelet mean volume (Bld) [Entitic vol] 11.6 fL Normal 9.5-13.5 [facility] Comment on above: Performed By: #### C BC #### [facility] [address] [place] [address] [address] Angel Li PLT 200 103/ul Normal 150-450 [facility] Comment on above: Performed By: #### C BC #### [facility] [address] [place] [address] Dr. Angel Li RBC 4.07 106/ul Critically low 4.20-5.40 [facility] Comment on above: Performed By: #### C BC #### [facility] [address] [place] [address] Dr. Angel Li WBC 8.0 103/ul Normal 4.0-11.0 [facility] Comment on above: Performed By: #### C BC #### [facility] [address] [place] [address] Dr. Angel Li PROF 14(COMP METB)on 023 Albumin [Mass/Vol] 3.4 g/dL Normal 3.4-5.0 [facility] Comment on above: Performed By: #### C MP #### [facility] [address] [place] [address] Dr. Angel Li Albumin/Globulin [Mass ratio] 0.9 {ratio} Normal [facility] Comment on above: Performed By: #### C MP #### [facility] [address] [place] [address] Dr. Angel Li ALP [Catalytic activity/Vol] 122 U/L Critically high 46-116 [facility] Comment on above: Performed By: #### C MP #### [facility] [address] [place] [address] [address] Angel Li ALT [Catalytic activity/Vol] 35 U/L Normal 14-59 [facility] Comment on above: Performed By: #### C MP #### [facility] [address] [place] [address] [address] Angel Li Anion gap [Moles/Vol] 9.7 mmol/L Normal [facility] Comment on above: Performed By: #### C MP #### [facility] [address] [place] [address] [address] Angel Li AST [Catalytic activity/Vol] 32 U/L Normal 15-37 [facility] Comment on above: Performed By: #### C MP #### [facility] [address] [place] [address] Dr. Angel Li Bilirubin [Mass/Vol] 0.4 mg/dL Normal 0.2-1.0 [facility] Comment on above: Performed By: #### C MP #### [facility] [address] [place] [address] Dr. Angel Li Calcium [Mass/Vol] 9.0 mg/dL Normal 8.5-10.1 [facility] Comment on above: Performed By: #### C MP #### [facility] [address] [place] [address] Dr. Angel Li Chloride [Moles/Vol] 103 mmol/L Normal 98-107 [facility] Comment on above: Performed By: #### C MP #### [facility] [address] [place] [address] Dr. Angel Li CO2 [Moles/Vol] 32.3 mmol/L Critically high 21.0-32.0 [facility] Comment on above: Performed By: #### C MP #### [facility] [address] [place] [address] Dr. Angel Li Creatinine [Mass/Vol] 0.97 mg/dL Normal 0.55-1.02 [facility] Comment on above: Performed By: #### C MP #### [facility] [address] [place] [address] [address] Angel Li EGFR-AF GHANAIAN >60 Normal >=60 [facility] Comment on above: Performed By: #### C MP #### [facility] [address] [place] [address] [address] Angel Li EGFR-NON AF GHANAIAN =60 Normal >=60 [facility] Comment on above: Performed By: #### C MP #### [facility] [address] [place] [address] [address] Angel Li Globulin (S) [Mass/Vol] 3.7 g/dL Normal T [facility] Comment on above: Performed By: #### C MP #### [facility] [address] [place] [address] Dr. Angel Li Glucose [Mass/Vol] 87 mg/dL Normal 74-106 [facility] Comment on above: Performed By: #### C MP #### [facility] [address] [place] [address] Dr. Angel Li Potassium [Moles/Vol] 4.0 mmol/L Normal 3.5-5.1 [facility] Comment on above: Performed By: #### C MP #### [facility] [address] [place] [address] Dr. Angel Li Protein [Mass/Vol] 7.1 g/dL Normal 6.4-8.2 [facility] Comment on above: Performed By: #### C MP #### [facility] [address] [place] [address] Dr. Angel Li Sodium [Moles/Vol] 141 mmol/L Normal 136-145 [facility] Comment on above: Performed By: #### C MP #### [facility] [address] [place] [address] Dr. Angel Li Urea nitrogen [Mass/Vol] 11.0 mg/dL Normal 7.0-18.0 [facility] Comment on above: Performed By: #### C MP #### [facility] [address] [place] [address] Dr. Angel Li Urea nitrogen/Creatinine [Mass ratio] 11.3 mg/mg Normal [facility] Comment on above: Performed By: #### C MP #### [facility] [address] [place] [address] Dr. Angel Li PAP ACOG PANEL 2: 30 to 65on 03-13-2022 . . Normal [facility] Comment on above: Result Comment: Perf ormed at: WB Performed By: #### [id number] #### [facility] [address] [place] [address] Dr. Angel Li Age Gdln ACOG Testing -63 [facility] Comment on above: Performed By: #### 4 [id number] #### [facility] [address] [place] [address] Dr. Angel Li DIAGNOSIS: Comment Normal [facility] Comment on above: Result Comment: NEGA TIVE FOR INTRAEPITHELIAL LESION OR MALIGNANCY. Performed at: WB Performed By: #### 4 [id number] #### [facility] [address] [place] [address] Dr. Angel Li HPV Aptima Negative Normal [facility] Comment on above: Result Comment: This nucleic acid amplification test detects fourteen high-risk HPV types (16,18,31,33,35,39,45,51,52,56,58,59,66,68) without differentiation. Performed at: =G Performed By: #### 4 [id number] #### [facility] [address] [place] [address] Dr. Angel Li Methodology: Comment Normal [facility] Comment on above: Result Comment: This liquid based ThinPrep(R) pap test was screened with the use of an image guided system. Performed at: WB Performed By: #### 4 [id number] #### [facility] [address] [place] [address] Dr. Angel Li Note: Comment Normal [facility] Comment on above: Result Comment: The Pap smear is a screening test designed to aid in the detection of premalignant and malignant conditions of the uterine cervix. It is not a diagnostic procedure and should not be used as the sole means of detecting cervical cancer. Both false-positive and false-negative reports do occur. . Performed at: WB Performed By: #### 4 [id number] #### [facility] [address] [place] [address] [address] Angel Li Performed by: Comment Normal [facility] Comment on above: Result Comment: Shyanne Back, Government Contracts Manager (ASCP) Performed at: WB Performed By: #### 4 [id number] #### [facility] [address] [address] [address] Angel Li Specimen adequacy: Comment Normal [facility] Comment on above: Result Comment: Sati sfactory for evaluation. Endocervical and/or squamous metaplastic cells (endocervical component) are present. Performed at: WB Performed By: #### 4 [id number] #### [facility] [address] [address] [address] Angel Li VAGINITIS/VAGINOSIS DNA PROB Marcelino 03-08-2022 Gracia species Negative Normal Negative [facility] Comment on above: Performed By: #### V AGINT #### [facility] [address] [place] [address] Dr. Angel Li Gardnerella vaginalis Positive Abnormal Negative [facility] Comment on above: Performed By: #### V AGINT #### [facility] [address] [place] [address] Dr. Angel Li Trichomonas vaginalis Negative Normal Negative [facility] Comment on above: Performed By: #### V AGINT #### [facility] [address] [place] [address] Dr. Angel Li BRAIN & CERVICAL SPINE MRI D ISCRETE DATAon 11-14-2021 Brain Enhancing Lesions None C [facility] Brain Interval Improvement None [facility] Brain New T2 Lesions [facility] Brain Other Significant MRI Findings None. [facility] Brain Parenchymal Volume Loss None [facility] Brain T2 [place] of Disease Moderate [facility] MRI BRAIN WO/W IVCONon 11-14 [facility] CBC W Auto Differential pane l (Bld)on 09-18-2021 Abs Immature Gran <0.03 <0.10 k/uL [facility] Basophils (Bld) [#/Vol] 0.03 10*3/uL <0.11 k/uL [facility] Basophils/100 WBC (Bld) 0.5 % [facility] Differential cell count method Nom (Bld) Auto [facility] Eosinophils (Bld) [#/Vol] 0.15 10*3/uL <0.46 k/uL [facility] Eosinophils/100 WBC (Bld) 2.4 % [facility] Erythrocyte distribution width (RBC) [Ratio] 14.2 % 11.5 - 15.0 % [facility] Hematocrit (Bld) [Volume fraction] 41.5 % 36.0 - 46.0 % [facility] Hemoglobin (Bld) [Mass/Vol] 12.9 g/dL 11.5 - 15.5 g/dL [facility] Immature Gran % 0.3 % [facility] Lymphocytes (Bld) [#/Vol] 0.60 10*3/uL Low 1.00 - 4.00 k/uL [facility] Lymphocytes/100 WBC (Bld) 9.7 % [facility] MCH (RBC) [Entitic mass] 29.3 pg 26. 0 - 34.0 pg [facility] MCHC (RBC) [Mass/Vol] 31.1 g/dL 30.5 - 36.0 g/dL [facility] MCV (RBC) [Entitic vol] 94.3 fL 80.0 - 100.0 fL [facility] Monocytes (Bld) [#/Vol] 0.74 10*3/uL <0.87 k/uL [facility] Monocytes/100 WBC (Bld) 12.0 % [facility] Neutrophils (Bld) [#/Vol] 4.62 10*3/uL 1.45 - 7.50 k/uL [facility] Neutrophils/100 WBC (Bld) 75.1 % [facility] Nucleated RBC (Bld) [#/Vol] 10*3/uL <0.01 k/uL [facility] Nucleated RBC/100 WBC (Bld) [Ratio] 0.0 /100 WBC [facility] Platelet mean volume (Bld) [Entitic vol] 12.5 fL 9.0 - 12.7 fL [facility] Platelets (Bld) [#/Vol] 181 10*3/uL 150 - 400 k/uL [facility] RBC (Bld) [#/Vol] 4.40 10*6/uL 3.90 - 5.20 m/uL [facility] WBC (Bld) [#/Vol] 6.16 10*3/uL 3.70 - 11.00 k/uL [facility] Comprehensive metabolic 2000 panelon 09-18-2021 Albumin [Mass/Vol] 3.8 g/dL Low 3.9 - 4.9 g/dL [facility] ALP [Catalytic activity/Vol] 114 U/L 34 - 123 U/L [facility] ALT [Catalytic activity/Vol] 16 U/L 7 - 38 U/L [facility] Anion gap [Moles/Vol] 11 mmol/L 9 - 18 mmol/L [facility] AST [Catalytic activity/Vol] 21 U/L 13 - 35 U/L [facility] Bilirubin [Mass/Vol] 0.4 mg/dL 0.2 - 1 .3 mg/dL [facility] Calcium [Mass/Vol] 9.0 mg/dL 8.5 - 10. 2 mg/dL [facility] Chloride [Moles/Vol] 102 mmol/L 97 - 10 5 mmol/L [facility] CO2 [Moles/Vol] 25 mmol/L 22 - 30 mmol/L [facility] Creatinine [Mass/Vol] 0.97 mg/dL High 0.58 - 0.96 mg/dL [facility] Estimated Glomerular Filtration Rate 70 mL/min/1.73m >=60 mL/min/1.7 3m [facility] Glucose [Mass/Vol] 60 mg/dL Low 74 - 99 mg/dL [facility] Potassium [Moles/Vol] 4.0 mmol/L 3.7 - 5.1 mmol/L [facility] Protein [Mass/Vol] 7.0 g/dL 6.3 - 8.0 g/dL [facility] Sodium [Moles/Vol] 138 mmol/L 136 - 144 mmol/L [facility] Urea nitrogen [Mass/Vol] 10 mg/dL 7 - 21 mg/dL [facility] LIPID PANEL BASICon 09-19-19 Cholesterol [Mass/Vol] 142 mg/dL <200 mg/dL [facility] Cholesterol in HDL [Mass/Vol] 39 mg/dL Low >39 mg/dL [facility] Cholesterol in LDL [Mass/Vol] 72 mg/dL <100 mg/dL [facility] Cholesterol in LDL/Cholesterol in HDL [Mass ratio] 1.85 {ratio} <2.54 [facility] Cholesterol in VLDL [Mass/Vol] 31 mg/dL High <30 mg/dL [facility] Cholesterol non HDL [Mass/Vol] 103 mg/dL <130 mg/dL [facility] Cholesterol.total/Choles terol in HDL [Mass ratio] 3.64 {ratio} <5.10 [facility] Fasting Time 14 hours [facility] Triglyceride [Mass/Vol] 157 mg/dL High <150 mg/dL [facility] COVID-19 SOFIAOrdered By: Mague Rosa on 09-01-2021 SARS-CoV+SARS-CoV-2 (COVID-19) Ag IA.rapid Ql (Resp) Negative Negative [facility] Comment on above: This is a duplicate [place] SARS Antigen (ELAINA) result to be used for statistical tracking purpose only. No Panel InformationOrdered By: Liyah Rosa on 09-01-2021 SARS Antigen (LFIA) [facility] CBC W/AUTO DIFFon 05-07-2017 % NEUTROPHILS [...] (HCT) 41.2 % Normal 36.0-48.0 Patholog y [facility] Hemoglobin mass conc (Bld) 13.9 g/dL Normal 12.0-16.0 [facility] Lymphocytes 0.7 10*3/uL Low 0.8-5.2 [facility] Lymphocytes/100 leukocytes 13.2 % Normal [facility] MCH 29.6 pg Normal 27.0-34.0 [facility] MCHC mass conc (RBC) 33.7 g/dL Normal 31.0-36.0 Path [employer] MCV 87.8 fL Normal 80.-100. Pathology [...] Glucose mass conc 78 mg/dL Normal 70-100 [employer] [facility] [facility] Comment on above: Result Comment: DIAG NOSTIC THRESHOLDS FOR DIABETES AND IMPAIRED FASTING GLUCOSE (IFG) FASTING PLASMA GLUCOSE NORMAL <100 mg/dL IFG 100-125 mg/dL DIABETES >/= 126 mg/dL Potassium molar conc 4.1 mmol/L Normal 3.5-5.4 [employer] Sodium 144 mmol/L Normal 134-147 Pathology [...] LDL to HDL Ratio 1.7 Normal <3.5 [employer] LDL-CHOL, CALCULATED 95 mg/dL Normal <130 [employer] Comment on above: Result Comment: LDL CHOLESTEROL REFERENCE RANGE FOR 0-19 YEARS: DESIRABLE <110 mg/dL, BORDERLINE 110-129, HIGH RISK >130 LDL CHOLESTEROL REFERENCE RANGE FOR ADULTS: DESIRABLE <100 mg/dL, BORDERLINE 130-159, HIGH RISK >160REFERENCE RANGES REVISED 10/28/15 ACCORDING TO NCEP GUIDELINES Triglyceride 107 mg/dL Normal <150 [facility] VLDL-CHOL, CALCULATED 21 mg/dL Normal <30 [employer] TSH WITH FT4 REFLEXon 2016 Thyroid stimulating hormone (TSH) 1.480 uIU/mL Normal 0.40-4.40 Pathology [facility] [facility] Comment on above: Result Comment: [employer] [address] [place], [place] [address]Laboratory Director: Troy Goddard M.D.CLIA No. [id number] CAP Accreditation No. [id number] CARDIOPULMONARY REPORT CLDon 12-24-2016 CARDIOPULMONARY REPORT CLD [address] [place] [id number] [address] [place], [place] [address] Name: ANUPAMA VASQUEZ Visit ID: [id number] Record #: [id number] : 1970CC: Frances Aguilera CNP Pulmonary Function [...] seen. Clinical correlation is recommended. Author: CAROL Rao/jerry/[id number] T: 12/24/2016 10:41 cc: Frances Aguilera CNP Electronically Authenticated and Edited by:Jacki Hess MD On 12/31/2016 09:16 AM EDT [facility] Vital Signs Date Time Vital Sign Value Performing Clinician Facility 09-28-2024 23:34-0400 Diastolic blood pressure 63 mm[Hg] Julio Fernandez MD Work Phone: [facility] 09-28-2024 23:34-0400 Heart rate 83 /min Julio Fernandez MD Work Phone: [facility] 09-28-2024 23:34-0400 Respiratory rate 15 /min Julio Fernandez MD Work Phone: [facility] 09-28-2024 23:34-0400 Systolic blood pressure 115 mm[Hg] Julio Fernandez MD Work Phone: [facility] 09-28-2024 20:38-0400 Body temperature 98.1 [degF] Julio Fernandez MD Work Phone: [facility] 09-28-2024 20:38-0400 SaO2% (BldA) [Mass fraction] 100 % Julio Fernandez MD Work Phone: [facility] 09-28-2024 05:00-0400 Body mass index (BMI) [Ratio] 40.87 kg/m2 Julio Fernandez MD Work Phone: [facility] 09-28-2024 05:00-0400 Body weight 114.8 kg Julio Fernandez MD Work Phone: [facility] 09-25-2024 01:00-0400 Body height 167.6 cm Julio Fernandez MD Work Phone: [facility] 09-19-2024 03:52-0400 SaO2% (BldA) [Mass fraction] 95 % Julio Fernandez MD Work Phone: [facility] 09-19-2024 03:52-0400 SaO2% (BldA) [Mass fraction] 78 % Julio Fernandez MD Work Phone: [facility] 09-19-2024 03:47-0400 SaO2% (BldA) [Mass fraction] 78 % FRED GRACIA [facility] Comment on above: Performed By: #### PINR #### [facility] (TT) [address] [place] [address] [facility] 09-16-2024 13:14-0400 Body temperature 96.8 [degF] Adonay PHILLIPS Work Phone: [facility] 09-16-2024 13:14-0400 Diastolic blood pressure 85 mm[Hg] Adonay PHILLIPS Work Phone: [facility] 09-16-2024 13:14-0400 Heart rate 74 /min Adonay Castillo [employer] INSTRUCTION POLICE OFFICER-HANDKERCHIEF FOLDER Work Phone: [facility] 09-16-2024 13:14-0400 Systolic blood pressure 147 mm[Hg] Adonay Castillo SAFETY INSTRUCTION POLICE OFFICER-HANDKERCHIEF FOLDER Work Phone: [facility] 08-18-2024 09:18-0400 Body mass index (BMI) [Ratio] 44.96 kg/m2 Fred Sonuholz WASTE/MATERIALS EXCHANGE SPECIALIST Work Phone: [facility] 08-18-2024 09:18-0400 Body temperature 98.2 [degF] Fred Aichholz WASTE/MATERIALS EXCHANGE SPECIALIST Work Phone: [facility] 08-18-2024 09:18-0400 Body weight 122.56 kg Fred Monikahholz WASTE/MATERIALS EXCHANGE SPECIALIST Work Phone: [facility] 08-18-2024 09:18-0400 Diastolic blood pressure 80 mm[Hg] Fred Monikahholz WASTE/MATERIALS EXCHANGE SPECIALIST Work Phone: [facility] 08-18-2024 09:18-0400 Heart rate 98 /min Fred Aichholz WASTE/MATERIALS EXCHANGE SPECIALIST Work Phone: [facility] 08-18-2024 09:18-0400 Respiratory rate 24 /min Fred Monikahholz WASTE/MATERIALS EXCHANGE SPECIALIST Work Phone: [facility] 08-18-2024 09:18-0400 SaO2% (BldA) [Mass fraction] 95 % Fred Monikahholz WASTE/MATERIALS EXCHANGE SPECIALIST Work Phone: [facility] 08-18-2024 09:18-0400 Systolic blood pressure 110 mm[Hg] Fred Monikahholz WASTE/MATERIALS EXCHANGE SPECIALIST Work Phone: [facility] 06-17-2024 09:33-0500 Body mass index (BMI) [Ratio] 47.09 kg/m2 Sherrie Boone WASTE/MATERIALS EXCHANGE SPECIALIST Work Phone: [facility] 06-17-2024 09:33-0500 Body temperature 97.7 [degF] Sherrie Boone WASTE/MATERIALS EXCHANGE SPECIALIST Work Phone: [facility] 06-17-2024 09:33-0500 Body weight 128.37 kg Sherrie Boone WASTE/MATERIALS EXCHANGE SPECIALIST Work Phone: [facility] 06-17-2024 09:33-0500 Diastolic blood pressure 82 mm[Hg] Sherrie Boone WASTE/MATERIALS EXCHANGE SPECIALIST Work Phone: [facility] 06-17-2024 09:33-0500 Heart rate 100 /min Sherrie Boone WASTE/MATERIALS EXCHANGE SPECIALIST Work Phone: [facility] 06-17-2024 09:33-0500 Respiratory rate 16 /min Sherrie Boone WASTE/MATERIALS EXCHANGE SPECIALIST Work Phone: [facility] 06-17-2024 09:33-0500 SaO2% (BldA) [Mass fraction] 97 % Sherrie Boone WASTE/MATERIALS EXCHANGE SPECIALIST Work Phone: [facility] 06-17-2024 09:33-0500 Systolic blood pressure 120 mm[Hg] Sherrie Boone WASTE/MATERIALS EXCHANGE SPECIALIST Work Phone: [facility] 05-18-2024 09:18-0500 Body height 165.1 cm Fred Sonuholz WASTE/MATERIALS EXCHANGE SPECIALIST Work Phone: [facility] 05-18-2024 09:18-0500 Body mass index (BMI) [Ratio] 46.93 kg/m2 Fred Sonuholz WASTE/MATERIALS EXCHANGE SPECIALIST Work Phone: [facility] 05-18-2024 09:18-0500 Body temperature 98.1 [degF] Fred Monikahholz WASTE/MATERIALS EXCHANGE SPECIALIST Work Phone: [facility] 05-18-2024 09:18-0500 Body weight 127.91 kg Fred Aichholz WASTE/MATERIALS EXCHANGE SPECIALIST Work Phone: [facility] 05-18-2024 09:18-0500 Diastolic blood pressure 90 mm[Hg] Fred Aichholz WASTE/MATERIALS EXCHANGE SPECIALIST Work Phone: [facility] 05-18-2024 09:18-0500 Heart rate 81 /min Fred Basil WASTE/MATERIALS EXCHANGE SPECIALIST Work Phone: [facility] 05-18-2024 09:18-0500 Respiratory rate 19 /min Fred Basil WASTE/MATERIALS EXCHANGE SPECIALIST Work Phone: [facility] 05-18-2024 09:18-0500 SaO2% (BldA) [Mass fraction] 95 % Fred Basil WASTE/MATERIALS EXCHANGE SPECIALIST Work Phone: [facility] 05-18-2024 09:18-0500 Systolic blood pressure 144 mm[Hg] Fred Basil WASTE/MATERIALS EXCHANGE SPECIALIST Work Phone: [facility] 04-27-2024 09:03-0500 Body height 165.1 cm [facility] Work Phone: [facility] 04-27-2024 09:03-0500 Body mass index (BMI) [Ratio] 46.43 kg/m2 [facility] Work Phone: [facility] 04-27-2024 09:03-0500 Body weight 126.55 kg [facility] Work Phone: [facility] 03-05-2024 10:04-0400 Body height 165.1 cm Fred Gabrielcaitiez WASTE/MATERIALS EXCHANGE SPECIALIST Work Phone: [facility] 03-05-2024 10:04-0400 Body mass index (BMI) [Ratio] 46.49 kg/m2 Fred Basil WASTE/MATERIALS EXCHANGE SPECIALIST Work Phone: [facility] 03-05-2024 10:04-0400 Body temperature 97.59 [degF] Fred Basil WASTE/MATERIALS EXCHANGE SPECIALIST Work Phone: [facility] 03-05-2024 10:04-0400 Body weight 126.73 kg Fred Bonitaz WASTE/MATERIALS EXCHANGE SPECIALIST Work Phone: [facility] 03-05-2024 10:04-0400 Diastolic blood pressure 82 mm[Hg] Fred Basil WASTE/MATERIALS EXCHANGE SPECIALIST Work Phone: [facility] 03-05-2024 10:04-0400 Heart rate 82 /min Fred Gracia WASTE/MATERIALS EXCHANGE SPECIALIST Work Phone: [facility] 03-05-2024 10:04-0400 Respiratory rate 18 /min Fred Gracia WASTE/MATERIALS EXCHANGE SPECIALIST Work Phone: [facility] 03-05-2024 10:04-0400 SaO2% (BldA) [Mass fraction] 97 % Fred Gracia WASTE/MATERIALS EXCHANGE SPECIALIST Work Phone: [facility] 03-05-2024 10:04-0400 Systolic blood pressure 112 mm[Hg] Fred Gracia WASTE/MATERIALS EXCHANGE SPECIALIST Work Phone: [facility] 02-25-2024 08:32-0400 Body height 165.1 cm Eliazar Brooks DO Work Phone: [facility] 02-25-2024 08:32-0400 Body mass index (BMI) [Ratio] 48.09 kg/m2 Eliazar Brooks DO Work Phone: [facility] 02-25-2024 08:32-0400 Body weight 131.09 kg Eliazar Brooks DO Work Phone: [facility] 02-10-2024 17:11-0400 Heart rate 82 /min Eliazar Brooks [facility] 02-10-2024 17:11-0400 SaO2% (BldA) [Mass fraction] 94 % Eliazar Brooks [facility] 02-10-2024 17:11-0400 Diastolic blood pressure 89 mm[Hg] Eliazar Brooks [facility] 02-10-2024 17:11-0400 Mean blood pressure 109 mm[Hg] Eliazar Broosk [facility] 02-10-2024 17:11-0400 Systolic blood pressure 148 mm[Hg] Eliazar Brooks [facility] 02-10-2024 17:11-0400 Respiratory rate 16 /min Eliazar Brooks [facility] 02-10-2024 17:11-0400 Body temperature 98.24 [degF] Eliazar Brooks [facility] 02-10-2024 16:06-0400 Heart rate 81 /min Eliazar Brooks [facility] 02-10-2024 16:06-0400 SaO2% (BldA) [Mass fraction] 99 % Eliazar Brooks [facility] 02-10-2024 16:06-0400 Diastolic blood pressure 81 mm[Hg] Eliazar Brooks [facility] 02-10-2024 16:06-0400 Mean blood pressure 98 mm[Hg] Eliazar Brooks [facility] 02-10-2024 16:06-0400 Systolic blood pressure 134 mm[Hg] Eliazar Brooks [facility] 02-10-2024 16:05-0400 Respiratory rate 16 /min Eliazar Brooks [facility] 02-10-2024 16:00-0400 Body temperature 97.52 [degF] Eliazar Brooks [facility] 02-10-2024 16:00-0400 Respiratory rate 22 /min Eliazar Brooks [facility] 02-10-2024 16:00-0400 SaO2% (BldA) [Mass fraction] 95 % Eliazar Brooks [facility] 02-10-2024 16:00-0400 Systolic blood pressure 139 mm[Hg] Eliazar Brooks [facility] 02-10-2024 15:50-0400 Mean blood pressure 106 mm[Hg] Eliazar Brooks [facility] 02-10-2024 15:50-0400 Respiratory rate 24 /min Eliazar Brooks [facility] 02-10-2024 15:45-0400 Respiratory rate 9 /min Eliazar Brooks [facility] 02-10-2024 15:37-0400 Blood Pressure Location Eliazar Brooks [facility] 02-10-2024 15:37-0400 Body temperature 97.7 [degF] Eliazar Brooks [facility] 02-10-2024 15:30-0400 Respiratory rate 18 /min Eliazar Brooks [facility] 02-10-2024 12:04-0400 Blood Pressure Location Eliazar Brooks [facility] 02-10-2024 12:04-0400 Mean blood pressure 100 mm[Hg] Eliazra Brooks [facility] 02-10-2024 12:04-0400 Heart rate 94 /min Eliazar Brooks [facility] 02-10-2024 12:03-0400 Body temperature 97.88 [degF] Eliazar Brooks [facility] 02-10-2024 12:03-0400 Blood Pressure Location Eliazar Brooks [facility] 02-03-2024 14:28-0400 Body height 165.1 cm Fred Gracia WASTE/MATERIALS EXCHANGE SPECIALIST Work Phone: [facility] 02-03-2024 14:28-0400 Body mass index (BMI) [Ratio] 48.09 kg/m2 Fred Gracia WASTE/MATERIALS EXCHANGE SPECIALIST Work Phone: [facility] 02-03-2024 14:28-0400 Body temperature 98.49 [degF] Fred Gracia WASTE/MATERIALS EXCHANGE SPECIALIST Work Phone: [facility] 02-03-2024 14:28-0400 Body weight 131.09 kg Fred Gracia WASTE/MATERIALS EXCHANGE SPECIALIST Work Phone: [facility] 02-03-2024 14:28-0400 Diastolic blood pressure 90 mm[Hg] Fred Gracia WASTE/MATERIALS EXCHANGE SPECIALIST Work Phone: [facility] 02-03-2024 14:28-0400 Heart rate 83 /min Fred Ascenciovicky WASTE/MATERIALS EXCHANGE SPECIALIST Work Phone: [facility] 02-03-2024 14:28-0400 Respiratory rate 18 /min Fred Gracia WASTE/MATERIALS EXCHANGE SPECIALIST Work Phone: [facility] 02-03-2024 14:28-0400 SaO2% (BldA) [Mass fraction] 93 % Fred Ascenciovicky WASTE/MATERIALS EXCHANGE SPECIALIST Work Phone: [facility] 02-03-2024 14:28-0400 Systolic blood pressure 128 mm[Hg] Fred Ascenciojesicalee WASTE/MATERIALS EXCHANGE SPECIALIST Work Phone: [facility] 01-30-2024 10:45-0400 Body height 165.1 cm Eliazar Zbigniew DO Work Phone: [facility] 01-30-2024 10:45-0400 Body mass index (BMI) [Ratio] 48.92 kg/m2 Eliazar Zbigniew DO Work Phone: [facility] 01-30-2024 10:45-0400 Body weight 133.36 kg Eliazar Zbigniew DO Work Phone: [facility] 07-10-2023 15:53-0500 Body height 167.6 cm Paris Paris DO Work Phone: [facility] 07-10-2023 15:53-0500 Body weight 134.26 kg Paris Paris DO Work Phone: [facility] 07-10-2023 15:53-0500 Heart rate 89 /min Paris Paris DO Work Phone: [facility] 07-10-2023 15:53-0500 SaO2% (BldA) [Mass fraction] 97 % Paris Paris DO Work Phone: [facility] 06-26-2023 11:34-0500 Body height 165.1 cm Shaikh Jonn BENITEZ Work Phone: [facility] 06-26-2023 11:34-0500 Body mass index (BMI) [Ratio] 48.09 kg/m2 Shaikh Jonn BENITEZ Work Phone: [facility] 06-26-2023 11:34-0500 Body temperature 98.6 [degF] Shaikh Jonn BENITEZ Work Phone: [facility] 06-26-2023 11:34-0500 Body weight 131.09 kg Shaikh Jonn BENITEZ Work Phone: [facility] 06-26-2023 11:34-0500 Diastolic blood pressure 80 mm[Hg] Shaikh Jonn BENITEZ Work Phone: [facility] 06-26-2023 11:34-0500 Heart rate 77 /min Shaikh Jonn BENITEZ Work Phone: [facility] 06-26-2023 11:34-0500 SaO2% (BldA) [Mass fraction] 96 % Shaikh Jonn BENITEZ Work Phone: [facility] 06-26-2023 11:34-0500 Systolic blood pressure 136 mm[Hg] Shaikh Jonn BENITEZ Work Phone: [facility] 04-18-2022 10:30-0500 Body height 173.99 cm Liyah Rosa Other [employer] Other 04-18-2022 10:30-0500 Body mass index (BMI) [Ratio] 46.68 kg/m2 Liyah Rosa Other [employer] Other 04-18-2022 10:30-0500 Body weight 141.34 kg Liyah Rosa Other [employer] Other 04-18-2022 10:30-0500 Diastolic blood pressure 89 mm[Hg] Liyah Rosa Other [employer] Other 04-18-2022 10:30-0500 Systolic blood pressure 129 mm[Hg] Liyah Rosa Other [employer] Other 03-22-2022 12:54-0400 Body height 172.7 cm Jessica Young PA-C Work Phone: [facility] 03-22-2022 12:54-0400 Body weight 131.54 kg Jessica Young PA-C Work Phone: [facility] 03-22-2022 12:54-0400 Diastolic blood pressure 76 mm[Hg] Jessica Young PA-C Work Phone: [facility] 03-22-2022 12:54-0400 Heart rate 108 /min Jessica Young PA-C Work Phone: [facility] 03-22-2022 12:54-0400 Systolic blood pressure 129 mm[Hg] Jessica Young PA-C Work Phone: [facility] 03-22-2022 09:30-0400 Body temperature 97 [degF] Infusion 10 Work Phone: [facility] 03-22-2022 09:30-0400 Diastolic blood pressure 83 mm[Hg] Infusion 10 Work Phone: [facility] 03-22-2022 09:30-0400 Heart rate 79 /min Infusion 10 Work Phone: [facility] 03-22-2022 09:30-0400 Systolic blood pressure 152 mm[Hg] Infusion 10 Work Phone: [facility] 12-13-2021 10:30-0400 Body height 173.99 cm Liyah Rosa Other [employer] Other 12-13-2021 10:30-0400 Body mass index (BMI) [Ratio] 45.55 kg/m2 Liyah Rosa Other [employer] Other 12-13-2021 10:30-0400 Body weight 137.89 kg Liyah Rosa Other [facility] [employer] Other 11-14-2021 08:42-0400 Body height 174 cm Jessica Young PA-C Work Phone: [facility] 11-14-2021 08:42-0400 Body weight 132 kg Jessica Young PA-C Work Phone: [facility] 11-14-2021 08:42-0400 Diastolic blood pressure 68 mm[Hg] Jessica Young PA-C Work Phone: [facility] 11-14-2021 08:42-0400 Heart rate 88 /min Jessica Young PA-C Work Phone: [facility] 11-14-2021 08:42-0400 Systolic blood pressure 112 mm[Hg] Jessica Young PA-C Work Phone: [facility] 09-18-2021 12:00-0400 Body temperature 97.9 [degF] Infusion 2 Work Phone: [facility] 09-18-2021 12:00-0400 Diastolic blood pressure 89 mm[Hg] Infusion 2 Work Phone: [facility] 09-18-2021 12:00-0400 Heart rate 93 /min Infusion 2 Work Phone: [facility] 09-18-2021 12:00-0400 Respiratory rate 16 /min Infusion 2 Work Phone: [facility] 09-18-2021 12:00-0400 Systolic blood pressure 131 mm[Hg] Infusion 2 Work Phone: [facility] 09-18-2021 08:00-0400 Body height 174 cm Infusion 2 Work Phone: [facility] 09-18-2021 08:00-0400 Body weight 117.94 kg Infusion 2 Work Phone: [facility] 09-05-2021 10:45-0400 Diastolic blood pressure 68 mm[Hg] Services [employer] [facility] Work Phone: [facility] 09-05-2021 10:45-0400 Heart rate 91 /min Services [employer] Work Phone: [facility] 09-05-2021 10:45-0400 Respiratory rate 18 /min Services [employer] Work Phone: [facility] 09-05-2021 10:45-0400 SaO2% (BldA) [Mass fraction] 99 % Services [employer] Work Phone: [facility] 09-05-2021 10:45-0400 Systolic blood pressure 122 mm[Hg] Services [employer] Work Phone: [facility] 09-05-2021 08:26-0400 Body height 173.99 cm Services [employer] Work Phone: [facility] 09-05-2021 08:26-0400 Body mass index (BMI) [Ratio] 43.4 kg/m2 Services [employer] Work Phone: [facility] 09-05-2021 08:26-0400 Body temperature 98.2 [degF] Services [employer] Work Phone: [facility] 09-05-2021 08:26-0400 Body weight 131.54 kg Services [employer] Work Phone: [facility] 08-14-2021 11:30-0400 Body height 173.99 cm Liyah Rosa Other [employer] Other 08-14-2021 11:30-0400 Body mass index (BMI) [Ratio] 43.45 kg/m2 Liyah Rosa Other [employer] Other 08-14-2021 11:30-0400 Body weight 131.54 kg Liyah Rosa Other [employer] Other Encounters Encounter Date Encounter Type Care Provider Facility Start: 11-24-2024 ambulatory REGINA MATTHEWS Facili ty:[facility] [place] Start: 10-17-2024 End: 10-17-2024 Clinisync Result Encounter Generic External Data Provider [facility] Unsolicited Start: 10-17-2024 End: 10-17-2024 Clinisync Result Encounter Generic External Data Provider [facility] External Department Unsolicited Start: 10-17-2024 End: 10-17-2024 ambulatory Alonzo Holguin [facility] Work Phone: Start: 10-17-2024 End: 10-17-2024 Departed Referred Tripp Gruber MD Work Phone: [facility] Start: 10-09-2024 End: 10-09-2024 ambulatory REGINA MATTHEWS Facility: [place] Start: 10-06-2024 ambulatory REGINA MATTHEWS Facility : [place] Start: 09-29-2024 End: 09-29-2024 Telephone encounter Anya Soni RN [facility] Comment on above: incision Start: 09-19-2024 End: 09-19-2024 ambulatory UNKNOWN PROVIDER Facility:[facility] Start: 09-18-2024 End: 09-29-2024 Evaluation and management of inpatient Lewis Botello DO Work Phone: [facility] Start: 09-18-2024 End: 09-18-2024 Clinisync Result Encounter Sary Colin MD Work Phone: [facility] External Department Unsolicited Start: 09-18-2024 End: 09-18-2024 Clinisync Result Encounter Sary Colin MD Work Phone: [facility] External Department Unsolicited Start: 09-16-2024 End: 09-16-2024 ambulatory ADONAY CASTILLO [facility] Start: 09-16-2024 End: 09-16-2024 Office outpatient new 20 minutes Adonay Castillo SAFETY INSTRUCTION POLICE OFFICER-HANDKERCHIEF FOLDER Work Phone: [facility] Comment on above: Dermatitis associate d with moisture (Primary Dx); Pressure injury of left buttock, stage 2 ([facility]) Start: 08-28-2024 End: 09-01-2024 Emergency department patient visit MUNIRA HARO [facility] Start: 08-28-2024 End: 09-01-2024 Evaluation and management of [facility] Start: 08-23-2024 End: 08-25-2024 Clinisync Result Encounter Generic External Data Provider [facility] External Department Unsolicited Start: 08-23-2024 End: 08-25-2024 Clinisync Result Encounter Generic External Data Provider [facility] External Department Unsolicited Start: 08-23-2024 End: 08-23-2024 Refill Fred Gracia WASTE/MATERIALS EXCHANGE SPECIALIST Work Phone: [facility] Comment on above: 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 (Primary Dx); Yeast dermatitis Start: 08-22-2024 End: 08-22-2024 ambulatory Tripp Gruber [facility] Work Phone: Start: 08-22-2024 End: 08-22-2024 Departed Referred Tripp Gruber MD Work Phone: [facility] [place] [facility] Start: 08-22-2024 End: 08-23-2024 Clinisync Result Encounter Generic External Data Provider [facility] External Department Unsolicited Start: 08-22-2024 End: 08-23-2024 Clinisync Result Encounter Generic External Data Provider [facility] External Department Unsolicited Start: 08-18-2024 End: 08-18-2024 Bamboo flowsheet Fred Gracia WASTE/MATERIALS EXCHANGE SPECIALIST Work Phone: [facility] Start: 08-18-2024 End: 08-18-2024 Bamboo flowsheet Fred Gracia WASTE/MATERIALS EXCHANGE SPECIALIST Work Phone: [facility] Start: 08-18-2024 End: 08-18-2024 Office outpatient visit 25 minutes Fred Gracia NP Work Phone: [facility] Comment on above: Generalized anxiety disorder with panic attacks (CMS/HCC) (Primary Dx); Morbid (severe) obesity due to excess calories (CMS/HCC); Major depressive disorder, recurrent, moderate (CMS/HCC); Primary insomnia Start: 08-18-2024 End: 08-18-2024 ambulatory FRED AICHHOLZ Not Available Start: 08-03-2024 End: 08-03-2024 Telephone encounter Elva Rodriguez WASTE/MATERIALS EXCHANGE SPECIALIST Work Phone: [facility] Start: 07-07-2024 End: 07-07-2024 Bamboo flowsheet Fred Aichholz WASTE/MATERIALS EXCHANGE SPECIALIST Work Phone: [facility] Start: 07-07-2024 End: 07-07-2024 Bamboo flowsheet Fred Aichholz WASTE/MATERIALS EXCHANGE SPECIALIST Work Phone: [facility] Start: 07-07-2024 End: 07-07-2024 ambulatory FRED AICHHOLZ Not Available Start: 06-30-2024 End: 06-30-2024 Clinisync Result Encounter Fred Aichholz WASTE/MATERIALS EXCHANGE SPECIALIST Work Phone: [facility] External [facility] Unsolicited Start: 06-30-2024 End: 06-30-2024 Clinisync Result Encounter Fred Aichholz WASTE/MATERIALS EXCHANGE SPECIALIST Work Phone: [facility] External Department Unsolicited Start: 06-17-2024 End: 06-17-2024 Bamboo flowsheet Sherrie Boone WASTE/MATERIALS EXCHANGE SPECIALIST Work Phone: [facility] Start: 06-17-2024 End: 06-17-2024 Bamboo flowsheet Sherrie Boone WASTE/MATERIALS EXCHANGE SPECIALIST Work Phone: [facility] Start: 06-17-2024 End: 06-17-2024 Office outpatient visit 10 minutes Sherrie Rothmantrick WASTE/MATERIALS EXCHANGE SPECIALIST Work Phone: [facility] Comment on above: Acute non-recurrent frontal sinusitis (Primary Dx) Start: 06-17-2024 End: 06-17-2024 ambulatory SHERRIE LOPEZPATRICK Not Available Start: 05-18-2024 End: 05-18-2024 Bamboo flowsheet Fred Gracia WASTE/MATERIALS EXCHANGE SPECIALIST Work Phone: [facility] Start: 05-18-2024 End: 05-18-2024 Bamboo flowsheet Fred Monikareyvicky WASTE/MATERIALS EXCHANGE SPECIALIST Work Phone: [facility] Start: 05-18-2024 End: 05-18-2024 Patient encounter procedure Fred Ascenciovicky WASTE/MATERIALS EXCHANGE SPECIALIST Work Phone: [facility] Comment on above: [...] attacks (CMS/HCC) Start: 05-18-2024 End: 05-18-2024 ambulatory FRED BASIL Not Available Start: 05-07-2024 End: 05-07-2024 Orders Only Jessica Clarke PA-C Work Phone: [facility] Start: 05-04-2024 End: 05-05-2024 Telephone encounter Aria Kumar PT [facility] Comment on above: re: PT Eloisaal tomorrow ; Call Back Start: 04-27-2024 End: 04-27-2024 Telephone encounter Fred Gracia WASTE/MATERIALS EXCHANGE SPECIALIST Work Phone: [facility] Start: 04-27-2024 End: 04-27-2024 Patient encounter procedure Yahaira IBANEZ Work Phone: [facility] Comment on above: Adhesive capsulitis of left shoulder (Primary Dx); S/P arthroscopy of left shoulder Start: 04-27-2024 End: 04-27-2024 ambulatory YAHAIRA VAZQUEZ Not Available Start: 04-26-2024 End: 04-27-2024 Refill Fred Ascenciovicky WASTE/MATERIALS EXCHANGE SPECIALIST Work Phone: [facility] Comment on above: Anxiety and depressi on (CMS/HCC) Start: 04-15-2024 End: 04-15-2024 Refill Fred Ascenciovicky WASTE/MATERIALS EXCHANGE SPECIALIST Work Phone: [facility] Comment on above: Acute cough (Primary Dx) Start: 04-14-2024 End: 04-14-2024 Refill Fred Ascenciovicky WASTE/MATERIALS EXCHANGE SPECIALIST Work Phone: [facility] Comment on [...] Start: 03-25-2024 End: 03-25-2024 Bamboo flowsheet Inderjitdaniel Villagran CONVEYOR MAINTENANCE MECHANIC [facility] Start: 03-25-2024 End: 03-25-2024 Bamboo flowsheet Inderjit Liyah CONVEYOR MAINTENANCE MECHANIC [facility] Start: 03-25-2024 End: 03-25-2024 ambulatory Inderjit Liyah CONVEYOR MAINTENANCE MECHANIC [facility] Comment on above: Left shoulder pain, unspecified chronicity (Primary Dx); S/P arthroscopy of left shoulder Start: 03-13-2024 End: 03-13-2024 Bamboo flowsheet Inderjit Villagran CONVEYOR MAINTENANCE MECHANIC [facility] Start: 03-13-2024 End: 03-13-2024 Bamboo flowsheet Inderjit Villagran CONVEYOR MAINTENANCE MECHANIC [facility] Start: 03-13-2024 End: 03-13-2024 ambulatory Inderjitdaniel Villagran CONVEYOR MAINTENANCE MECHANIC [facility] Comment on above: Left [...] ORTHO Start: 03-06-2024 End: 03-06-2024 ambulatory Inderjit Liyah CONVEYOR MAINTENANCE MECHANIC [facility] Comment on above: S/P arthroscopy of l eft shoulder (Primary Dx) Start: 03-05-2024 End: 03-05-2024 Bamboo flowsheet Fred Gracia WASTE/MATERIALS EXCHANGE SPECIALIST Work Phone: [facility] Start: 03-05-2024 End: 03-05-2024 Bamboo flowsheet Fred Gracia WASTE/MATERIALS EXCHANGE SPECIALIST Work Phone: [facility] Start: 03-05-2024 End: 03-05-2024 Office outpatient visit 15 minutes Fred Gracia WASTE/MATERIALS EXCHANGE SPECIALIST Work Phone: [facility] Comment on above: Anxiety and depressi on (CMS/HCC) (Primary Dx); Needs flu shot; Candidiasis of skin Start: 03-05-2024 End: 03-05-2024 ambulatory FRED GRACIA Not Available Start: 03-03-2024 End: 03-03-2024 Bamboo flowsheet Inderjit Villagran CONVEYOR MAINTENANCE MECHANIC [facility] Start: 03-03-2024 End: 03-03-2024 Bamboo flowsheet Inderjit Villagran CONVEYOR MAINTENANCE MECHANIC [facility] Start: 03-03-2024 End: 03-03-2024 ambulatory Inderjit Villagran CONVEYOR MAINTENANCE MECHANIC [facility] Comment on above: S/P [...] center Eliazar Brooks [facility] Start: 02-10-2024 End: 02-10-2024 ambulatory Eliazar Brooks Facility:[facility] Start: 02-05-2024 End: 02-05-2024 ambulatory [facility] Facility:[facility] Start: 02-03-2024 End: 02-03-2024 Office outpatient visit 15 minutes Fred Gracia WASTE/MATERIALS EXCHANGE SPECIALIST Work Phone: [facility] Comment on above: Diverticulitis (Prim donna Dx); Class 3 severe obesity without serious comorbidity with body mass index (BMI) of 45.0 to 49.9 in adult, unspecified obesity type ([facility]/HCC) Start: 02-03-2024 End: 02-03-2024 Bamboo flowsheet Fred Gracia WASTE/MATERIALS EXCHANGE SPECIALIST Work Phone: [facility] Start: 02-03-2024 End: 02-03-2024 Bamboo flowsheet Fred Gracia WASTE/MATERIALS EXCHANGE SPECIALIST Work Phone: [facility] Start: 02-03-2024 [...] 01-29-2024 End: 01-29-2024 Orders Only Fred Gracia WASTE/MATERIALS EXCHANGE SPECIALIST Work Phone: [facility] Comment on above: Multiple sclerosis ( CMS/HCC) (Primary Dx) Start: 01-23-2024 End: 01-23-2024 Clinisync Result Encounter Fred Gracia WASTE/MATERIALS EXCHANGE SPECIALIST Work Phone: [facility] External Department Unsolicited Start: 01-23-2024 End: 01-23-2024 Clinisync Result Encounter Fred Basil WASTE/MATERIALS EXCHANGE SPECIALIST Work Phone: [facility] External Department Unsolicited Start: 01-23-2024 End: 01-23-2024 ambulatory SHERRIE JOHNSONK Not Available Start: 01-14-2024 End: 01-17-2024 Telephone encounter Jessica Clarke PA-C Work Phone: [facility] Comment on above: Orders Start: 01-06-2024 End: 01-06-2024 ambulatory FRED GRACIA Not Available Start: 12-24-2023 End: 01-10-2024 Pre-admission assessment Eliazar Brooks [facility] Start: 12-24-2023 End: 12-24-2023 ambulatory ELIAZAR BROOKS Not Available Start: 12-19-2023 Telephone encounter Nurse Tommyfanny [facility] Work Phone: Infusion Start: 12-02-2023 End: 12-02-2023 ambulatory FRED AICHHOLZ Not Available Start: 11-27-2023 Orders Only Jessica Saavedra A-C Work Phone: [facility] Comment on above: Multiple sclerosis ( HCC) (Primary Dx); Vitamin D deficiency Start: 11-26-2023 Orders Only Sarthak Escobar MD, PhD Work Phone: [facility] Start: 11-13-2023 End: 11-13-2023 ambulatory YAHAIRA D HILLS Not Available Start: 11-05-2023 End: 11-05-2023 ambulatory YAHAIRA D HILLS Not Available Start: 10-10-2023 End: 10-10-2023 ambulatory FRED AICHHOLZ Not Available Start: 10-07-2023 End: 10-07-2023 ambulatory YAHAIRA D HILLS Not Available Start: 09-06-2023 End: 09-06-2023 ambulatory Lashaun Vasquez PA-C Work Phone: [facility] [place] Comment on above: Left arm weakness (P rimary Dx) Start: 09-06-2023 End: 09-06-2023 Telemedicine consultation with patient Lashaun Christina PA-C Work Phone: [facility] Start: 08-22-2023 ambulatory Jessica Saavedra A-C Work Phone: [facility] Comment on above: Spine Start: 08-22-2023 Chart abstracting None (Historical) Neurology Start: 08-21-2023 Telephone encounter Jessica mireles PA-C Work Phone: [facility] Comment on above: Patient Question Start: 08-08-2023 ambulatory ELIAZAR Aiken ty:[facility] Start: 07-15-2023 Telephone encounter Jessica mireles PA-C Work Phone: [facility] Comment on above: Orders (Order for MR I needed for Brain and Cervical) Start: 07-10-2023 End: 07-10-2023 ambulatory JESSICA CLARKE Facility:[facility] Start: 07-10-2023 End: 07-10-2023 Patient [...] Phone: [facility] Start: 06-26-2023 Lisseth flowsheet Shaikh Jonn BENITEZ Work Phone: [facility] Start: 06-26-2023 E-mail encounter fro m caregiver Paris E Paris DO Work Phone: [facility] Start: 06-26-2023 End: 06-26-2023 Office outpatient visit 25 minutes Shaikh Jonn BENITEZ Work Phone: [facility] Comment on above: Multiple sclerosis ( CMS/HCC) (Primary Dx); Primary hypertension (CMS/HCC); Anxiety and depression (CMS/HCC); COPD with exacerbation (CMS/HCC); Non-recurrent acute suppurative otitis media of left ear without spontaneous rupture of tympanic membrane Start: 05-22-2023 End: 05-22-2023 ambulatory SARTHAK ESCOBAR Facility:[facility] Start: 05-02-2023 End: 05-02-2023 ambulatory Jessica Clarke PA-C Work Phone: [facility] Comment on above: Multiple sclerosis ( HCC) (Primary Dx) Start: 05-02-2023 End: 05-02-2023 Telemedicine consultation with patient Jessica Clarke PA-C Work Phone: [facility] Start: 04-22-2023 ambulatory Jessica Clarke P A-C Work Phone: [facility] Comment on above: Skull Start: 04-19-2023 ambulatory Jessica Clarke P A-C Work Phone: [facility] Comment on above: Skull Start: 10-17-2022 ambulatory Valdez Sousa Work Phone: Internal Medicine [facility] [place] Start: 10-01-2022 End: 10-01-2022 ambulatory HANDKERCHIEF FOLDER FRED SENIORLee Facility: Start: 10-01-2022 ambulatory HANDKERCHIEF FOLDER FRED AICReyHOLLee Facil ity:[facility]1 Start: 09-21-2022 End: 09-21-2022 ambulatory YAHAIRA MCKEON . Facility:[facility] Start: 08-30-2022 Orders Only Jessica Clarke P A-C Work Phone: [facility] Comment on above: Multiple sclerosis, relapsing-remitting (HCC) (Primary Dx) Start: 06-05-2022 End: 06-06-[address] DOCTOR BULL Facility:[facility] Start: 04-18-2022 End: 04-18-2022 ambulatory Liyah Rosa Other [employer] Other Start: 04-18-2022 Office outpatient vi sit 15 minutes Liyah Rosa [facility] Gastroenterology Start: 03-30-2022 Telephone encounter Valdez aleman MD Work Phone: [address] [place] [address] Comment on above: Patient Update Start: 03-22-2022 End: 03-22-2022 Patient encounter procedure Jessica Clarke PA-C Work Phone: [facility] Comment on above: Multiple sclerosis, relapsing-remitting (HCC) (Primary Dx) Start: 03-22-2022 End: 03-22-2022 ambulatory Infusion Kriss [address] 10 Work Phone: Multiple Sclerosis Comment on above: Multiple sclerosis ( HCC) (Primary Dx) Start: 03-16-2022 Orders Only Sarthak Escobar MD, PhD Work Phone: [facility] Start: 03-07-2022 End: 03-07-2022 ambulatory RUBINA GRACIA Facility:[facility] Start: 03-06-2022 ambulatory Valdez Sousa Work Phone: Family [facility] Start: 02-12-2022 Telephone encounter Jessica mireles PA-C Work Phone: Neurology Comment on above: Appointment (Called pt LVM to see about setting up pt and psycology.) Start: 01-16-2022 End: 01-16-2022 ambulatory Jojo Pickard OTR/L Work Phone: [facility] Occupational Therapy Comment on above: Multiple sclerosis, relapsing-remitting (HCC) Start: 12-13-2021 End: 12-13-2021 ambulatory Liyah Rosa Other [employer] Other Start: 12-13-2021 Office outpatient vi sit 15 minutes Liyah Rosa [facility] Gastroenterology Start: 11-15-2021 ambulatory Valdez Sousa Work Phone: Internal Medicine [facility] Start: 11-14-2021 End: 11-14-2021 Patient encounter procedure Jessica Clarke PA-C Work Phone: [facility] Comment on above: Multiple sclerosis, relapsing-remitting (HCC) (Primary Dx) Start: 11-14-2021 End: 11-14-2021 Subsequent hospital visit by physician Cara Manning (I-Stat/3t) Work Phone: Radiology Comment on above: Multiple sclerosis, relapsing-remitting (HCC) [G35] Start: 09-18-2021 End: 09-18-2021 ambulatory Infusion [facility] [place] [address] Work Phone: Multiple Sclerosis Comment on above: Multiple sclerosis ( HCC) (Primary Dx); Multiple sclerosis, relapsing-remitting (HCC) Start: 09-15-2021 End: 09-15-2021 ambulatory Jessica Clarke PA-C Work Phone: [facility] Comment on above: Multiple sclerosis, relapsing-remitting (HCC) Start: 09-15-2021 End: 09-15-2021 Telemedicine consultation with patient Jessica Vince FIGUEROA Work Phone: [facility] Start: 09-14-2021 End: 09-14-2021 ambulatory Liyah Moe Other [employer] Other Start: 09-14-2021 Telephone encounter Liyah Xinreji ck [employer] Start: 09-05-2021 End: 09-05-2021 Admission to same day surgery center Services [employer] [facility] Work Phone: [facility] Start: 09-01-2021 End: 09-01-2021 Patient encounter procedure Services [facility] Work Phone: [facility] Start: 08-14-2021 End: 08-14-2021 ambulatory Liyah Moe Other [employer] Other Start: 08-14-2021 Office outpatient ne w 45 minutes Liyah Rosa [facility] Start: 07-28-2020 End: 07-28-2020 Patient encounter procedure Jazmin Shaikh Work Phone: [facility] Work Phone: Start: 12-20-2016 End: 12-21-2016 Ambulatory August [facility] Facility:[facility] Start: 11-27-2012 Patient encounter status Jessica Clarke PA-C Work Phone[facility] Procedures Date Procedure Procedure Detail Performing Clinician Start: 10-17-2024 URINE CULTURE - [facility] Ge neric External Data Provider Start: 09-28-2024 Radiologic exam swal low function contrast study Jesi E Phlipot SAFETY INSTRUCTION POLICE OFFICER-HANDKERCHIEF FOLDER Work Phone: Start: 09-28-2024 Basic metabolic pane l calcium total Sandie IBANEZ Work Phone: Start: 09-27-2024 Basic metabolic pane l calcium total Sandie IBANEZ Work Phone: Start: 09-27-2024 Radiologic exam ches t single view Anjelica Venegas SAFETY INSTRUCTION POLICE OFFICER-HANDKERCHIEF FOLDER Work Phone: Start: 09-25-2024 Assay of magnesium Maureen Espinal MD Work Phone: Start: 09-25-2024 Basic metabolic pane l calcium total Sandie Davila PA Work Phone: Start: 09-24-2024 Radiologic exam swal low function contrast study Chip Zarate SAFETY INSTRUCTION POLICE OFFICER-HANDKERCHIEF FOLDER Work Phone: Start: 09-24-2024 Comprehensive metabo lic [...] 09-23-2024 Radiologic exam ches t single view Anjelica Venegas SAFETY INSTRUCTION POLICE OFFICER-HANDKERCHIEF FOLDER Work Phone: Start: 09-23-2024 Basic metabolic pane l calcium total Sandie IBANEZ Work Phone: Start: 09-23-2024 REPEATED ABORH Xena Larios MD Work Phone: Start: 09-22-2024 Antibody screen Julio merchant MD Work Phone: Start: 09-22-2024 Antibody screen FRED BISHOP Comment on above: Performed By: #### [facility] #### [facility] ([facility] [address] [place] [address] VIR Start: 09-22-2024 Blood typing serologic abo Laura Gore SAFETY INSTRUCTION POLICE OFFICER-HANDKERCHIEF FOLDER Work Phone: Start: 09-22-2024 Electrolyte panel Miriam Church MD Work Phone: Start: 09-22-2024 REPEATED ABORH Laura Gore SAFETY INSTRUCTION POLICE OFFICER-HANDKERCHIEF FOLDER Work Phone: Start: 09-22-2024 HC ECHO COMPLETE W CONTRAST Melo IBANEZ-C Work Phone: Start: 09-22-2024 Electrolyte panel Miriam Church MD Work Phone: Start: 09-22-2024 Ecg routine ecg w/le ast 12 lds trcg only w/o i&r Anjelica L Shelbielka SAFETY INSTRUCTION POLICE OFFICER-[facility] Work Phone: Start: 09-22-2024 Basic metabolic pane l calcium total Sandie IBANEZ Work Phone: Start: 09-22-2024 Drug screen quantita tive vancomycin Anjelica L Veselka SAFETY INSTRUCTION POLICE OFFICER-[facility] Work Phone: Start: 09-21-2024 Electrolyte panel Miriam Church MD Work Phone: Start: 09-21-2024 Protein electrophore tic fractj&quantj serum Miriam Church MD Work Phone: Start: 09-21-2024 Drug screen quantita tive vancomycin Rom Petrisor Avasilcai SAFETY INSTRUCTION POLICE OFFICER-HANDKERCHIEF FOLDER Work Phone: Start: 09-21-2024 Electrolyte panel Miriam Church MD Work Phone: Start: 09-21-2024 Basic metabolic pane l calcium total Sandie IBANEZ Work Phone: Start: 09-20-2024 Drug screen quantita tive vancomycin Rom Petrisor Avasilcai SAFETY INSTRUCTION POLICE OFFICER-HANDKERCHIEF FOLDER Work Phone: Start: 09-20-2024 Electrolyte panel Miriam Church MD Work Phone: Start: 09-20-2024 Radiologic exam abdo men 1 view Steffanie Lozano SAFETY INSTRUCTION POLICE OFFICER-HANDKERCHIEF FOLDER Work Phone: Start: 09-20-2024 Ct abdomen & pelvis w/o contrast material Hiram Jones MD Work Phone: Start: 09-20-2024 Electrolyte panel Miriam Church MD Work Phone: Start: 09-20-2024 End: 09-20-2024 Culture bacterial blood aerobic w/id isolates Steffanie Lozano SAFETY INSTRUCTION POLICE OFFICER-HANDKERCHIEF FOLDER Work Phone: Start: 09-20-2024 Basic metabolic pane l calcium total Sandie IBANEZ Work Phone: Start: 09-20-2024 Mri brain brain stem w/o w/contrast material Chip Zarate SAFETY INSTRUCTION POLICE OFFICER-HANDKERCHIEF FOLDER Work Phone: Start: 09-19-2024 Electrolyte panel Miriam Church MD Work Phone: Start: 09-19-2024 Electrolyte panel Miriam Church MD Work Phone: Start: 09-19-2024 Us retroperitoneal r eal time w/image complete Miriam Church MD Work Phone: Start: 09-19-2024 Antinuclear antibodies magi Miriam Church MD Work Phone: Start: 09-19-2024 End: 09-19-2024 Electrolyte panel Sandie IBANEZ Work Phone: Start: 09-19-2024 BEDSIDE GLUCOSE Sheial Jung MD Work Phone: Start: 09-19-2024 Blood gases any comb ination ph pco2 po2 co2 hco3 Lewis Botello DO Work Phone: Start: 09-19-2024 Urnls dip stick/tabl et rgnt auto w/o microscopy Lewis Botello DO Work Phone: Start: 09-19-2024 ER EXTRA URINE Endrit L Biba MD Work Phone: Start: 09-19-2024 TROP I, HIGH SENSITI VITY 1 HOUR Endriraf Ontiveros MD Work Phone: Start: 09-19-2024 Urinalysis Miriam joe MD Work Phone: Start: 09-19-2024 Ecg routine ecg w/le ast 12 lds trcg only w/o i&r Endriraf Ontiveros MD Work Phone: Start: 09-19-2024 End: 09-19-2024 Comprehensive metabolic panel Endriraf Ontiveros MD Work Phone: Start: 09-19-2024 End: 09-19-2024 Culture bacterial blood aerobic w/id isolates Endriraf Ontiveros MD Work Phone: Start: 09-18-2024 ALL CBC WITH AUTO DIFF Sary Colin MD Work Phone: Start: 08-23-2024 BLOOD CULTURE 2 Generic External Data Provider Start: 08-23-2024 BLOOD CULTURE 1 Generic External Data Provider Start: 08-22-2024 URINE CULTURE - [facility] Ge neric External Data Provider Start: 08-22-2024 Urine culture Tripp mane MD Work Phone: Start: 06-30-2024 MM TOMOSYNTHESIS SCR EENING BI Fred Gracia WASTE/MATERIALS EXCHANGE SPECIALIST Work Phone: Start: 06-30-2024 Mammography Fred rivera WASTE/MATERIALS EXCHANGE SPECIALIST Work Phone: Start: 04-27-2024 Arthrocentesis aspir &/inj major jt/bursa w/us Yahaira Vazquez PA Work Phone: Start: 02-25-2024 Radex shoulder compl ete minimum 2 views Eliazar Brooks DO Work Phone: Start: 02-10-2024 Arthroscopy of shoulder Eliazar Brooks Start: 01-23-2024 TBH UA (CLEAN/CATCH) MICROSCOPIC IF INDICATE Fred Gracia WASTE/MATERIALS EXCHANGE SPECIALIST Work Phone: Start: 03-07-2022 Microscopic observat ion [Identifier] in Cervix by Cyto stain Shaikh Jonn BENITEZ Work Phone: Start: 11-14-2021 BRAIN & CERVICAL SPI NE MRI DISCRETE DATA [facility] Provider Start: 11-14-2021 Mri brain brain stem w/o w/contrast material Jessica Clarke PA-C Work Phone: Start: 09-18-2021 Blood count complete auto&auto difrntl wbc Jessica Clarke PA-C Work Phone: Start: 09-18-2021 Lipid panel Jessica Cabello aline PA-C Work Phone: Start: 09-18-2021 Lipid 1996 panel - S sofía or Plasma Jessica Clarke PA-C Work Phone: Start: 09-15-2021 Adult depression scr eening assessment Jessica Clarke PA-C Work Phone: Start: 09-05-2021 Diagnostic endoscopi c examination on colon Services [facility] Work Phone: Start: 09-01-2021 SARS Antigen (LFIA) Ser [facility] Work Phone: Start: 07-28-2020 Imm. administration COVID19 [employer] Work Phone: Start: 07-28-2020 SARS-CoV-2 vaccine, 0.5ml [employer] Work Phone: Start: 09-17-2012 Mammography Shaikh Ilan gimenez MD Work Phone: Ectopic (disorder) Eliazar Brooks Entire carpal canal (body structure) Eliazar Brooks Plan of Treatment Date Care Activity Detail Author Start: 09-22-2027 Screening for malignant neoplasm of colon [facility] Start: 10-02-2026 DTaP,Tdap and Td Vaccines (2 - Td or Tdap) DTaP,Tdap and Td Vaccines (2 - Td or Tdap) [facility] Start: 10-02-2026 Urine microalbumin profile [facility] Start: 09-18-2026 Lipid 1996 panel - Serum or Plasma Lipid Screening [facility] Start: 09-18-2026 Lipid panel Lipid Screening [facility] Start: 09-18-2026 LIPID SCREEN LIPID SCREEN [facility] Start: 05-22-2026 Diabetes Screening Diabetes Screening [facility] Start: 11-08-2025 LIPID SCREEN LIPID SCREEN [facility] Start: 09-28-2025 Adult BMI Screening Adult BMI Screening [facility] Start: 09-23-2025 Tobacco Screening Tobacco Screening [facility] Start: 09-16-2025 Tobacco Screening Tobacco Screening [facility] Start: 09-01-2025 Adult BMI Screening Adult BMI Screening [facility] Start: 06-30-2025 Screening for malignant neoplasm of breast Mammogram [facility] Start: 05-18-2025 Medicare Annual Wellness (AWV) Medicare Annual Wellness (AWV) [facility] Start: 03-07-2025 Screening for malignant neoplasm of cervix [facility] Start: 01-18-2025 Influenza vaccination Influenza Vaccine [facility] Start: 11-10-2024 End: 11-10-2024 ambulatory [facility] Start: 11-10-2024 End: 11-10-2024 Patient encounter procedure 11/10/2024 1:10 PM EDT Office Visit [facility] [address] [place] [phone] Jair Espinal MD [address] [place] [phone] [facility] Start: 10-17-2024 Bacteria identified in Urine by Culture Urine Culture [facility] Start: 10-17-2024 Urine culture [facility] Start: 10-02-2024 End: 09-28-2025 Void Trial [facility] Work Phone: Start: 09-30-2024 End: 09-30-2024 Patient encounter procedure 09/30/2024 8:40 AM EDT [facility] [address] [place] [address] Fred Gracia NP [address] [place] [phone] [facility] Start: 09-18-2024 DIABETES SCREEN DIABETES SCREEN [facility] Start: 09-18-2024 Diabetes Screening Diabetes Screening [facility] Start: 09-07-2024 End: 09-07-2024 Patient encounter procedure 09/07/2024 8:00 AM EDT Office Visit [facility] [address] [place] [address] Nasra Horta, WASTE/MATERIALS EXCHANGE SPECIALIST [address], [facility] [address] [place] [phone] [facility] Start: 08-31-2024 End: 08-31-2024 Patient encounter procedure 08/31/2024 10:30 AM EDT Office Visit [facility] [address] [place] [address] Fred Gracia NP [address] [place] [phone] [facility] Start: 08-22-2024 Urine culture [facility] Start: 08-22-2024 Bacteria identified in Urine by Culture Urine Culture [facility] Start: 08-18-2024 End: 08-18-2024 Patient encounter procedure [facility] Comment on above: Morbid (severe) obesity due to excess ca lories (CMS/HCC) (Primary Dx); Generalized anxiety disorder with panic attacks (CMS/HCC); Major depressive disorder, recurrent, moderate (CMS/HCC) Start: 07-13-2024 End: 07-13-2024 Patient encounter procedure 07/13/2024 9:40 AM EST Office Visit [facility] [address] [place] [address] Nasra Horta, WASTE/MATERIALS EXCHANGE SPECIALIST [address], [address] [phone] [facility] Start: 07-07-2024 End: 07-07-2024 Patient encounter procedure 07/07/2024 10:00 AM EST Office Visit [facility] [address] [place] [phone] Fred Gracia NP [address] [place] [phone] Generalized anxiety disorder with panic attacks (CMS/HCC) (Primary Dx); Multiple sclerosis (CMS/HCC); Major depressive disorder, recurrent, moderate (CMS/HCC); Morbid (severe) obesity due to excess calories (CMS/HCC); Body mass index (BMI) 45.0-49.9, adult (CMS/HCC) [facility] Comment on above: Generalized anxiety disorder with panic attacks (CMS/HCC) (Primary Dx); Multiple sclerosis (CMS/HCC); Major depressive disorder, recurrent, moderate (CMS/HCC); Morbid (severe) obesity due to excess calories (CMS/HCC); Body mass index (BMI) 45.0-49.9, adult (CMS/HCC) Start: 07-01-2024 End: 07-01-2024 Patient encounter procedure 07/01/2024 10:00 AM EST Office Visit [facility] [address] [place] [phone] Fred Gracia NP [address] [place] [phone] [facility] Start: 06-25-2024 End: 06-25-2024 Patient encounter procedure 06/25/2024 8:40 AM EST Office Visit [facility] [address] [place] [phone] Fred Gracia, KIRK [address] [place] [phone] [facility] Start: 06-17-2024 End: 06-17-2024 Patient encounter procedure 06/17/2024 9:30 AM EST Office Visit [facility] [address] [place] [phone] Sherrie Boone, KIRK [address] [place] [phone] Arrived [facility] Comment on above: Arrived Start: 06-08-2024 End: 06-08-2024 Patient encounter procedure 06/08/2024 9:45 AM EST Office Visit [facility] [address] [place] [address] Yahaira Vazquez PA [address] [place] [address] [facility] Start: 05-18-2024 End: 07-17-2025 MG Breast - bilateral Screening Bilateral screening mammogram Imaging Routine Encounter for screening mammogram for malignant neoplasm of breast Expected: 05/18/2024 (Approximate), Expires: 07/17/2025 [facility] Work Phone: Comment on above: Expected: 05/18/2024 (Approximate), Expi res: 07/17/2025 Start: 05-18-2024 End: 05-18-2024 Patient encounter procedure [facility] Comment on above: LORENZO (obstructive sleep apnea) [...] [facility] [address] [facility] [address] [place] [phone] Nasra Horta, WASTE/MATERIALS EXCHANGE SPECIALIST [address], [address] [phone] [facility] Start: 05-05-2024 End: 05-05-2024 Patient encounter procedure 05/05/2024 9:40 AM EST Office Visit [facility] [address] [place] [address] Fred Gracia NP [address] [place] [phone] [facility] Start: 04-30-2024 Medicare Annual Wellness (AWV) Medicare Annual Wellness (AWV) [facility] Start: 04-29-2024 End: 04-29-2024 Patient encounter procedure 04/29/2024 9:40 AM EST Office Visit [facility] [address] [phone] Nasra Horta, WASTE/MATERIALS EXCHANGE SPECIALIST [address] [phone] [facility] Start: 04-27-2024 End: 04-27-2024 Patient encounter procedure [facility] Start: 04-10-2024 End: 04-10-2024 ambulatory 04/10/2024 8:30 AM EST Treatment [facility] [address] [place] [phone] Inderjit Villagran, CONVEYOR MAINTENANCE MECHANIC [facility] Start: 04-07-2024 End: 04-07-2024 ambulatory 04/07/2024 9:00 AM EST Treatment [facility] [address] [place] [phone] Aria Kumar, PT [facility] Start: 04-02-2024 End: 04-02-2024 ambulatory 04/02/2024 8:30 AM EST Treatment [facility] [address] [place] [address] Aria Kumar, PT [facility] Start: 03-17-2024 End: 03-17-2024 ambulatory 03/17/2024 9:00 AM EDT Treatment [facility] [address] [place] [address] Aria Kumar, PT [facility] Start: 03-13-2024 End: 03-13-2024 ambulatory [facility] Comment on above: Arrived Start: 03-10-2024 End: 03-10-2024 ambulatory 03/10/2024 9:30 AM EDT Treatment [facility] [address] [facility] [address] [place] [address] Keli Major, CONVEYOR MAINTENANCE MECHANIC [facility] Start: 03-06-2024 End: 03-06-2024 ambulatory 03/06/2024 8:30 AM EDT Treatment [facility] [address] [facility] [address] [place] [address] Inderjit Villagarn, CONVEYOR MAINTENANCE MECHANIC [facility] Start: 03-05-2024 End: 03-05-2024 [...] [facility] [address] [place] [id number] Eliazar Brooks DO [address] [facility] [place] [address] [facility] Start: 02-25-2024 End: 02-25-2024 Patient encounter procedure 02/25/2024 8:15 AM EDT Office Visit [facility] [address] [place] [address] Eliazar Brooks DO [address] [place] [place] [address] [facility] Start: 02-10-2024 End: 02-10-2024 [...] NEUR [address] [place] [id number] [facility] Start: 01-19-2024 Covid-19 Vaccine ( season) Covid-19 Vaccine ( season) [facility] Start: 01-19-2024 Influenza vaccination Influ[facility] Start: 12-10-2023 End: 12-10-2023 Patient encounter procedure 12/10/2023 10:30 AM EDT Office Visit [address] [address] Jessica Clarke PA-C [address] [place] [address] [facility] Comment on above: follow up Start: 11-27-2023 End: 02-26-2024 25-hydroxyvitamin D3 [Mass/volume] in Serum or Plasma VITAMIN D 25 HYDROXY Lab Routine Vitamin D deficiency Expected: 11/27/2023, Expires: 02/26/2024 [facility] Comment on above: Expected: 11/27/2023, Expires: Start: 11-27-2023 End: 02-26-2024 CBC W Auto Differential panel - Blood COMPLETE BLOOD COUNT AND DIFFERENTIAL Lab Routine Multiple sclerosis ([facility]) Expected: 11/27/2023, Expires: 02/26/[address] [facility] Work Phone: Comment on above: Expected: 11/27/2023, Expires: Start: 11-27-2023 End: 02-26-2024 Comprehensive metabolic 2000 panel - Serum or Plasma COMPREHENSIVE METABOLIC PANEL Lab Routine Multiple sclerosis ([facility]) Expected: 11/27/2023, Expires: 02/26/2024 [facility] Comment on above: Expected: 11/27/2023, Expires: Start: 11-27-2023 End: 02-26-2024 IgG [Mass/volume] in Serum or Plasma IMMUNOGLOBULIN G Lab Routine Multiple sclerosis ([facility]) Expected: 11/27/2023, Expires: 02/26/2024 [facility] Comment on above: Expected: 11/27/2023, Expires: Start: 11-27-2023 End: 02-26-2024 IgM [Mass/volume] in Serum or Plasma IMMUNOGLOBULIN M Lab Routine Multiple sclerosis ([facility]) Expected: 11/27/2023, Expires: 02/26/2024 [facility] Comment on above: Expected: 11/27/2023, Expires: Start: 11-27-2023 End: 11-27-2023 Patient encounter procedure 11/27/2023 12:00 PM EDT Appointment Radiology [address] [place] [address] Cervical Spine MRI Radiology Comment on above: Cervical Spine MRI Start: 11-09-2023 DIABETES SCREEN DIABETES SCREEN [facility] Start: 09-05-2023 End: 09-05-2023 Patient encounter procedure 09/05/2023 8:40 AM EDT Office Visit [facility] [address] [place] [phone] Fred Gracia NP [address] [place] [phone] [facility] Start: 07-25-2023 End: 06-26-2024 Pulmonary function testing Pulmonary function testing Imaging Routine COPD with exacerbation ([facility]) Expected: 07/25/2023, Expires: 06/26/2024 [facility] Work Phone: Comment on above: Expected: 07/25/2023, Expires: Start: 06-26-2023 End: 06-26-2024 XR Chest 2 Views XR chest 2 views Imaging Routine COPD with exacerbation ([facility]) Expected: 06/26/2023, Expires: 06/26/2024 [facility] Comment on above: Expected: 06/26/2023, Expires: Start: 06-26-2023 End: 06-26-2023 Patient encounter procedure 06/26/2023 11:30 AM EST Office Visit [facility] [address] [place] [address] Shaikh Lunsford MD [address] [place] [phone] Arrived [facility] Comment on above: Arrived Start: 05-20-2023 Behavioral Health Screening Behavioral Health Screening [facility] Start: 05-20-2023 Depression Assessment Depression Assessment [facility] Start: 01-18-2023 Covid-19 Vaccine () Covid-19 Vaccine () [facility] Start: 01-18-2023 Influenza vaccination [facility] Start: 09-15-2022 Adult depression screening assessment DEPRESSION SCREENING [facility] Start: 08-30-2022 End: 10-30-2022 CBC W Auto Differential panel - Blood CBC + DIFF Lab Routine Multiple sclerosis, relapsing-remitting (HCC) Expected: 08/30/2022, Expires: 10/30/[address] [facility] Work Phone: Comment on above: Expected: 08/30/2022, Expires: 3 Start: 08-30-2022 End: 10-30-2022 Comprehensive metabolic 2000 panel - Serum or Plasma COMP METABOLIC PANEL Lab Routine Multiple sclerosis, relapsing-remitting (HCC) Expected: 08/30/2022, Expires: 10/30/[address] [facility] Work Phone: Comment on above: Expected: 08/30/2022, Expires: 3 Start: 08-30-2022 End: 10-30-2022 IgG [Mass/volume] in Serum or Plasma IGG Lab Routine Multiple sclerosis, relapsing-remitting (HCC) Expected: 08/30/2022, Expires: 10/30/[address] [facility] Work Phone: Comment on above: Expected: 08/30/2022, Expires: 3 Start: 08-30-2022 End: 10-30-2022 IgM [Mass/volume] in Serum or Plasma IGM Lab Routine Multiple sclerosis, relapsing-remitting (HCC) Expected: 08/30/2022, Expires: 10/30/[address] [facility] Work Phone: Comment on above: Expected: 08/30/2022, Expires: 3 Start: 05-20-2022 DEPRESSION ASSESSMENT DEPRESSION ASSESSMENT [facility] Start: 03-22-2022 End: 05-22-2022 CBC W Auto Differential panel - Blood CBC + DIFF Lab Routine Multiple sclerosis, relapsing-remitting (HCC) Expected: 03/22/2022, Expires: 05/22/[address] [facility] Work Phone: Comment on above: Expected: 03/22/2022, Expires: 3 Start: 03-22-2022 End: 05-22-2022 CD19 ABSOLUTE COUNT CD19 ABSOLUTE COUNT Lab Routine Multiple sclerosis (HCC) Expected: 03/22/2022, Expires: 05/22/[address] [facility] Work Phone: Comment on above: Expected: 03/22/2022, Expires: 3 Start: 03-22-2022 End: 05-22-2022 Comprehensive metabolic 2000 panel - Serum or Plasma COMP METABOLIC PANEL Lab Routine Multiple sclerosis, relapsing-remitting (HCC) Expected: 03/22/2022, Expires: 05/22/[address] [facility] Work Phone: Comment on above: Expected: 03/22/2022, Expires: 3 Start: 03-22-2022 End: 05-22-2022 IgG [Mass/volume] in Serum or Plasma IGG Lab Routine Multiple sclerosis, relapsing-remitting (HCC) Expected: 03/22/2022, Expires: 05/22/[address] [facility] Work Phone: Comment on above: Expected: 03/22/2022, Expires: 3 Start: 03-22-2022 End: 05-22-2022 IgM [Mass/volume] in Serum or Plasma IGM Lab Routine Multiple sclerosis, relapsing-remitting (HCC) Expected: 03/22/2022, Expires: 05/22/[address] [facility] Work Phone: Comment on above: Expected: 03/22/2022, Expires: 3 Start: 01-18-2022 Influenza vaccination [facility] Start: 11-14-2021 End: 01-14-2022 JCV ANTIBODY & INDEX WITH REFLEX [facility] Work Phone: Comment on above: Expected: 11/14/2021, Expires: 2 Start: 09-18-2021 End: 11-18-2021 CD19 ABSOLUTE COUNT [facility] Work Phone: Comment on above: Expected: 09/18/2021, Expires: 2 Start: 09-16-2021 COVID-19 VACCINE (3 - Booster for Yeni series) COVID-19 VACCINE (3 - Booster for Yeni series) [facility] Start: 09-15-2021 End: 11-15-2021 CBC W Auto Differential panel - Blood CBC + DIFF Lab Routine Multiple sclerosis, relapsing-remitting (HCC) Expected: 09/15/2021, Expires: 11/15/[address] [facility] Work Phone: Comment on above: Expected: 09/15/2021, Expires: 2 Start: 09-15-2021 End: 11-15-2021 Comprehensive metabolic 2000 panel - Serum or Plasma COMP METABOLIC PANEL Lab Routine Multiple sclerosis, relapsing-remitting (HCC) Expected: 09/15/2021, Expires: 11/15/[address] [facility] Work Phone: Comment on above: Expected: 09/15/2021, Expires: 2 Start: 09-15-2021 End: 11-15-2021 IMMUNOGLOBULINS KESHAWN IMMUNOGLOBULINS KESHAWN Lab Routine Multiple sclerosis, relapsing-remitting (HCC) Expected: 09/15/2021, Expires: 11/15/[address] [facility] Work Phone: Comment on above: Expected: 09/15/2021, Expires: 2 Start: 09-15-2021 End: 11-15-2021 LIPID PANEL BASIC LIPID PANEL BASIC Lab Routine Multiple sclerosis, relapsing-remitting (HCC) Expected: 09/15/2021, Expires: 11/15/[address] [facility] Work Phone: Comment on above: Expected: 09/15/2021, Expires: 2 Start: 07-13-2021 COVID-19 VACCINE (3 - Booster for Yeni series) COVID-19 VACCINE (3 - Booster for Yeni series) [facility] Start: 05-20-2021 DEPRESSION ASSESSMENT DEPRESSION ASSESSMENT [facility] Start: 2018 Administration of varicella zoster vaccine Zoster (Shingles) Vaccine (1 of 2) [facility] [employer] [facility] Start: 2018 Influenza vaccination LUNG CANCER SCREENING [facility] Start: 2018 Pneumococcal Vaccine: 50+ (2 of 2 - PCV) Pneumococcal Vaccine: 50+ (2 of 2 - PCV) [facility] Start: 2018 Screening for malignant neoplasm of lung Lung Cancer Screening [facility] Start: 2018 SHINGRIX VACCINE (1 of 2) SHINGRIX VACCINE (1 of 2) [facility] Start: 09-17-2013 Screening for malignant neoplasm of breast Mammogram [facility] Start: 2013 COLOGUARD (FIT-DNA) COLOGUARD (FIT-DNA) [facility] Start: 2013 Colonoscopy COLONOSCOPY [facility] Start: 2013 COLORECTAL CANCER SCREENING COLORECTAL CANCER SCREENING [facility] Start: [address] COLONOGRAPHY [facility] Start: 2013 FECAL OCCULT BLOOD FECAL OCCULT BLOOD [facility] Start: 2013 Screening for malignant neoplasm of colon [facility] Start: 2013 SIGMOIDOSCOPY SIGMOIDOSCOPY [facility] Start: 2008 Mammography [facility] Start: 2008 Screening for malignant neoplasm of breast Mammogram Screening [facility] Start: 1998 HPV TESTING HPV TESTING [facility] Start: 1998 Screening for malignant neoplasm of cervix [facility] Start: 1989 PAP TESTING PAP TESTING [facility] Start: 1989 Screening for malignant neoplasm of cervix [facility] Start: 1987 Hepatitis B Vaccine (1 of 3 - 19+ 3-dose series) Hepatitis B Vaccine (1 of 3 - 19+ 3-dose series) [facility] Start: 1986 Adult BMI Follow Up Plan Adult BMI Follow Up Plan [facility] Start: 1986 Anxiety Screening Anxiety Screening [facility] Start: 1986 Depression Screening Depression Screening [facility] Start: 1986 HIV SCREENING HIV SCREENING [facility] Start: 1986 HIV screening HIV Screening [facility] Start: 1980 Depression Screening Depression Screening [facility] Start: 1968 HEPATITIS B (1 of 3 - 3-dose series) HEPATITIS B (1 of 3 - 3-dose series) [facility] Start: 1968 Hepatitis B Vaccine (1 of 3 - 3-dose series) Hepatitis B Vaccine (1 of 3 - 3-dose series) [facility] Start: 1968 Screening for malignant neoplasm of colon [facility] Start: 1968 Tobacco Counseling Tobacco Counseling [facility] Basic metabolic 2000 panel - Serum or Plasma [facility] BLOOD CULTURE 1 BLOOD CULTURE 1 Lab Routine 08/23/2024 5:46 AM EDT [facility] BLOOD CULTURE 2 BLOOD CULTURE 2 Lab Routine 08/23/2024 5:52 AM EDT [facility] CBC W Auto Different ial panel - Blood [facility] End: 09-05-2024 EMG(NEURO/NI) EMG(NEURO/NI) EMG Routine Left arm weakness 1 Occurrences starting 09/06/2023 until 09/05/[address] [facility] Work Phone: Comment on above: 1 Occurrences starting 09/06/2023 until 09/05/2024 IMMUNOGLOBULINS KESHAWN IMMUNOGLOBUL INS KESHAWN Lab Routine Multiple sclerosis, relapsing-remitting (HCC) 09/18/2021 8:36 AM EDT [facility] Work Phone: Ionized calcium [facility] Work Phone: Magnesium [Mass/volu me] in Serum or Plasma [facility] End: 11-16-2023 ALIYA SCREENING ALIYA SCREENING Radiology Routine Encounter for screening mammogram for breast cancer 1 Occurrences starting 10/17/2022 until 11/16/[address] [facility] Work Phone: Comment on above: 1 Occurrences starting 10/17/2022 until 11/16/2023 End: 08-14-2024 MR Brain WO and W contrast IV MRI BRAIN WO/W IVCON Radiology Routine Multiple sclerosis (HCC) 1 Occurrences starting 07/16/2023 until 08/14/[address] [facility] Work Phone: Comment on above: 1 Occurrences starting 07/16/2023 until 08/14/2024 End: 10-05-2024 MR Cervical spine WO contrast MRI CERVICAL SPINE WO IVCON Radiology Routine Left arm weakness 1 Occurrences starting 09/06/2023 until 10/05/[address] [facility] Work Phone: Comment on above: 1 Occurrences starting 09/06/2023 until 10/05/2024 End: 10-15-2022 Mri brain brain stem w/o w/contrast material MRI BRAIN WO/W IVCON Radiology Routine Multiple sclerosis, relapsing-remitting (HCC) 1 Occurrences starting 09/15/2021 until 10/15/[address] [facility] Work Phone: Comment on above: 1 Occurrences starting 09/15/2021 until 10/15/2022 End: 12-14-2022 Mri brain brain stem w/o w/contrast material MRI BRAIN WO/W IVCON Radiology Routine Multiple sclerosis, relapsing-remitting (HCC) 1 Occurrences starting 11/14/2021 until 12/14/[address] [facility] Work Phone: Comment on above: 1 Occurrences starting 11/14/2021 until 12/14/2022 End: 09-29-2023 Mri brain brain stem w/o w/contrast material MRI BRAIN WO/W IVCON Radiology Routine Multiple sclerosis, relapsing-remitting (HCC) 1 Occurrences starting 08/30/2022 until 09/29/[address] [facility] Work Phone: Comment on above: 1 Occurrences starting 08/30/2022 until 09/29/2023 End: 09-29-2023 Mri spinal canal cervical w/o & w/contr matrl MRI CERVICAL SPINE WO/W IVCON Radiology Routine Multiple sclerosis, relapsing-remitting (HCC) 1 Occurrences starting 08/30/2022 until 09/29/[address] [facility] Work Phone: Comment on above: 1 Occurrences starting 08/30/2022 until 09/29/2023 OT PLAN OF CARE CERTIFICATION OT PLAN OF CARE CERTIFICATION Procedures Routine Multiple sclerosis, relapsing-remitting (HCC) Ordered: 01/16/[address] [facility] Work Phone: Comment on above: Ordered: 01/16/2022 Oxygen Therapy - Maintain SpO2: 90%; *SCRIPT MANAGER Guidelines for O2: Yes; Document: \[email or web address]\epi c\EPIC_Reference\Orders\ Respiratory Care Guidelines\CPG Oxygen 2022.pdf [facility] Work Phone: Patient Education Hemorrhoids (D C) Diverticulosis (DC) Colon Polypectomy (DC) [facility] Work Phone: Phosphate [Mass/volu me] in Serum or Plasma [facility] Platelets [#/volume] in Blood [facility] Work Phone: End: 12-15-2022 Screening mammography bi 2-view breast inc cad ALIYA SCREENING Radiology Routine Encounter for screening mammogram for breast cancer 1 Occurrences starting 11/15/2021 until 12/15/[address] [facility] Work Phone: Comment on above: 1 Occurrences starting 11/15/2021 until 12/15/2022 Surgical Pathology [facility] Work Phone: URINE CULTURE - [facility] [place]U [place] - [facility] Lab Routine 08/22/2024 10:45 PM EDT [facility] URINE CULTURE - [facility] - [facility] Lab Routine 10/17/2024 9:45 AM EDT [facility] End: 10-05-2024 XR CERV OTHER 4V AP/LAT/FLX/EXT XR CERV OTHER 4V AP/LAT/FLX/EXT Radiology Routine Left arm weakness 1 Occurrences starting 09/06/2023 until 10/05/[address] [facility] Work Phone: Comment on above: 1 Occurrences starting 09/06/2023 until 10/05/2024 [facility] Immunizations Immunization Date Immunization Notes Care Provider [facility] 03-05-2024 influenza, injectabl e, madin eric canine kidney, preservative free Julio Fernandez MD Work Phone: [facility] 03-05-2024 Influenza, injectabl e, Madin [place] Canine Kidney, preservative free, quadrivalent Fred Gracia WASTE/MATERIALS EXCHANGE SPECIALIST Work Phone: [facility] 03-05-2024 unknown vaccine or immune globulin Julio Fernandez MD Work Phone: [facility] 03-05-2024 influenza virus vaccine, unspecified formulation Adonay Castillo SAFETY INSTRUCTION POLICE OFFICER-HANDKERCHIEF FOLDER Work Phone: [facility] 05-02-2023 influenza, intraderm al, quadrivalent, preservative free, injectable Shaikh Jonn BENITEZ Work Phone: [facility] 05-02-2023 influenza virus vaccine, unspecified formulation Sarthak Escobar MD, PhD Work Phone: [facility] 04-30-2023 influenza, seasonal, injectable Shaikh Jonn BENITEZ Work Phone: [facility] 05-29-2022 unknown vaccine or immune globulin Julio Fernandez MD Work Phone: [facility] 03-07-2022 influenza, high dose seasonal, preservative-free Shaikh Jonn BENITEZ Work Phone: [facility] 03-07-2022 influenza virus vaccine, unspecified formulation Jessica Clarke PA-C Work Phone: [facility] 05-18-2021 COVID-19 mRNA-1273 (Moderna) [facility] Work Phone: [facility] 05-18-2021 unknown vaccine or immune globulin Julio Fernandez MD Work Phone: [facility] 07-28-2020 unknown vaccine or immune globulin Julio Fernandez MD Work Phone: [facility] 07-28-2020 Ilia and Ilia COVID 19 Vaccine [facility] Comment on above: Note: Patient tolera jonah well. No signs or symptoms of adverse reactions. Patient waited a minimum of 15 minutes. 04-08-2020 influenza, injectabl e, quadrivalent, preservative free Jessica Clarke PA-C Work Phone: [facility] 03-20-2019 influenza, injectabl e, quadrivalent, preservative free Jessica Clarke PA-C Work Phone: [facility] 06-05-2018 influenza, injectabl e, quadrivalent, preservative free Jessica Young PA-C Work Phone: [facility] 02-27-2017 influenza, injectabl e, quadrivalent, preservative free Jessica Young PA-C Work Phone: [facility] 10-02-2016 pneumococcal polysaccharide vaccine, 23 valent Jessica Young PA-C Work Phone: [facility] 10-02-2016 tetanus toxoid, redu maury diphtheria toxoid, and acellular pertussis vaccine, adsorbed Jessica Young PA-C Work Phone: [facility] 10-02-2016 unknown vaccine or immune globulin Julio Fernandez MD Work Phone: [facility] 04-03-2016 influenza, injectabl e, quadrivalent, preservative free Jessica Young PA-C Work Phone: [facility] 03-19-2015 influenza, high dose seasonal, preservative-free Jessica Young PA-C Work Phone: [facility] 03-19-2015 influenza, injectabl e, quadrivalent, preservative free Eliazar Brooks DO Work Phone: [facility] 04-27-2014 influenza, high dose seasonal, preservative-free Jessica Young PA-C Work Phone: [facility] 04-27-2014 influenza, injectabl e, quadrivalent, preservative free Eliazar Brooks DO Work Phone: [facility] Payers Date Payer Category Payer Self-pay [id number] 2024 Medicare [id number] 2023 Medicare (Managed Care) 1.2. [id number] 2023 Medicare [id number]. [id number] 2022 Medicare [id number] 2020 Medicaid [facility] MEDICAID [facility] COMMUNITY PLAN MEDICAID [id number] 2020-Present [phone] [address] [place] [address] Medicaid [id number] 2020 Medicaid [id number]. [id number]. [id number] 1968 Unknown [id number] 2.16.840.1.542142.3.579.2. 593 1968 Unknown [id number] 2.16.840.1.926925.3.579.2. 593 1968 Unknown [id number] 2.16.840.1.155320.3.579.2. 593 1968 Unknown [id number] 2.16.840.1.296331.3.579.2. 593 1968 Unknown [id number] 2.16.840.1.818603.3.579.2. 593 1968 Unknown [id number] 2.16.840.1.039429.3.579.2. 727 1968 Unknown [id number] 2.16.840.1.683221.3.579.2. 1259 1968 Unknown [id number] 2.16.840.1.545597.3.579.2. 1259 1968 Unknown [id number] 2.16.840.1.221499.3.579.2. 1259 1968 Unknown [id number] 2.16.840.1.408021.3.579.2. 1259 1968 Unknown [id number] 2.16.840.1.119572.3.579.2. 1259 1968 Unknown [id number] 2.16.840.1.865843.3.579.2. 1258 1968 Unknown [id number] 2.16.840.1.827341.3.579.2. 1258 1968 Unknown [id number] 2.16.840.1.079568.3.579.2. 1258 1968 Unknown [id number] 2.16.840.1.683499.3.579.2. 1258 1968 Unknown [id number] 2.16.840.1.766154.3.579.2. 1258 1968 Unknown [id number] 2.16.840.1.431483.3.579.2. 1258 1968 Unknown [id number] 2.16.840.1.948480.3.579.2. 1258 1968 Unknown [id number] 2.16.840.1.049209.3.579.2. 1258 1968 Unknown [id number] 2.16.840.1.490256.3.579.2. 1258 1968 Unknown [id number] 2.16.840.1.239808.3.579.2. 1258 1968 Unknown [id number] 2.16.840.1.308151.3.579.2. 1258 1968 Unknown [id number] 2.16.840.1.271451.3.579.2. 1258 1968 Unknown [id number] 2.16.840.1.141760.3.579.2. 1258 1968 Unknown [id number] 2.16.840.1.140177.3.579.2. 1258 1968 Unknown [id number] 2.16.840.1.757914.3.579.2. 1258 1968 Unknown [id number] 2.16.840.1.832726.3.579.2. 1258 1968 Unknown [id number] 2.16.840.1.374757.3.579.2. 1259 1968 Unknown [id number] 2.16.840.1.243882.3.579.2. 1259 1968 Unknown [id number] 2.16.840.1.494856.3.579.2. 1259 1968 Unknown [id number] 2.16.840.1.168889.3.579.2. 1259 1968 Unknown [id number] 2.16.840.1.916376.3.579.2. 1286 1968 Unknown [id number] 2.16.840.1.494307.3.579.2. 1286 1968 Unknown [id number] 2.16.840.1.749860.3.579.2. 1286 1968 Unknown [id number] 2.16.840.1.147116.3.579.2. 6 1968 Unknown [id number] 2.16.840.1.457630.3.579.2. 732 1968 Unknown [id number] 2.16.840.1.959254.3.579.2. 1286 1968 Unknown [id number] 2.16.840.1.807963.3.579.2. 1286 1968 Unknown [id number] 2.16.840.1.590237.3.579.2. 1968 Unknown [id number] 2.16.840.1.799084.3.579.2. 7 1968 Unknown [id number] 2.16.840.1.302249.3.579.2. 7 1968 Unknown [id number] 2.16.840.1.009196.3.579.2. 727 1968 Unknown [id number] 2.16.840.1.834019.3.579.2. 727 1968 Unknown [id number] 2.16.840.1.496793.3.579.2. 1286 1959 Private Health Insurance [id number] 1959 Unknown [id number] Medicare [id number] Self-pay [id number] 2.16.840.1.051105.3.140.1. 53534.5.4 Unknown [id number] Unknown [id number] Unknown [id number] Social History Date Type Detail Facility Tobacco smoking status Unknown if ever sm [employer] [facility] Work Phone: Start: 1970 Sex Assigned At Female F [facility] Start: 09-05-2021 End: 11-13-2023 Tobacco smoking status NHIS Ex-smoker (finding) [facility] Start: 12-13-1996 End: 12-13-2016 History of tobacco use Current smoker [facility] Start: 12-13-1996 End: 12-13-2016 History of tobacco use Cigarette Smoker [facility] Start: 12-06-2017 End: 06-04-2023 Cigarettes smoked current (pack per day) - Reported 1 [facility] Start: 12-06-2017 End: 11-13-2023 Tobacco use and exposure Smokeless tobacco non-user [facility] Start: 11-01-2020 End: 07-10-2023 Alcohol intake Current drinker of alcohol (finding) [facility] Start: 08-02-2020 History SDOH Alcohol Frequency 2 [facility] Start: 08-02-2020 History SDOH Alcohol Std Drinks 3 [facility] Start: 08-08-2012 History SDOH Alcohol Comment rare [facility] Start: 08-02-2020 History SDOH Social Connections Get Together 1 [facility] Start: 08-02-2020 History SDOH Physica l Activity DPW 0 [facility] Start: 08-02-2020 History SDOH Stress 5 [facility] Start: 08-02-2020 History SDOH Financial 4 [facility] Start: 08-02-2020 Education 8 [facility] Start: 08-08-2012 End: 03-22-2022 Tobacco Comment plans to try to quit at some point but not ready. [facility] Start: 09-08-2021 End: 03-22-2022 Exposure to SARS-CoV-2 (event) Not sure [facility] Start: 08-02-2020 End: 06-04-2023 Sex Assigned At [facility] Do you belong to any clubs or organizations such as muslim groups, unions, fraternal or athletic groups, or school groups? No [facility] Are you now , , , , never or living with a partner? [facility] How often to you hav e a drink containing alcohol? Monthly or less [facility] How many standard dr inks containing alcohol do you have on a typical day? 5 or 6 [facility] How often do you hav e 6 or more drinks on 1 occasion? Less than monthly [facility] How hard is it for y ou to pay for the very basics like food, housing, medical care, and heating Not very hard [facility] Start: 06-04-2023 Adult Depression Screening Assessment 5 [facility] Do you feel stress - tense, restless, nervous, or anxious, or unable to sleep at night because your mind is troubled all the time - these days [OSQ] Very much [facility] (I/We) worried wheth er (my/our) food would run out before (I/we) got money to buy more. Sometimes true [facility] Start: 08-02-2020 Gender identity Identifies as female gender (finding) [facility] Start: 08-02-2020 Sexual orientation Heterosexual (fin ever) [facility] Start: 06-05-2023 End: 08-31-2024 Alcohol [...] [facility] Comment on above: States smokes 1 PPD Tobacco smoking status No Smokin g Status Entered [facility] Start: 08-24-2024 End: 10-18-2024 Sex Female (finding) [facility] Start: 08-28-[address] [facility] sm[facility] Start: 09-16-2024 End: 09-23-2024 Alcoholic beverage intake Lifetime non-drinker (finding) [facility] Start: 1970 Sex assigned at Not on file [facility] Medical Equipment Procedure Code Equipment Code Equipment Origin al Text Equipment Identifier Dates SHOULDER ARTHROS COPY W/ POSSIBLE REPAIR Eliazar Brooks DO 02/10/24 Non Biological Shoulder L [id number] FDA Start: 02-10-2024 [id number] Start: 09-23-2024 [id number] Start: [...] time Functional Status Date Assessment Result Facility [facility] Mental Status Date Assessment Result Facility [facility] Clinical Notes 08-14-2021 to 10-09-2024 Telephone [...] pain. No leaking around alexis. 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 Pt is her own medical decision [...] of urine, unspecified) Hx . Transferred from [facility] to [facility] on 09/18/24 d/t BRANDON, brain mass w shift and AMS. 1.5L retention upon admission w BRANDON ([employer] 15.68) bilat hydro on US, improved to [...] E&M of New Patient Moderate 45-59 Min 42327 Influenza immunization status assessed 1030F Medication list [...] REGINA Pedraza, URL Within 6 weeks [address] [place] [address] [facility] (1) Additional Instructions: Patient Education Acute Urinary [...] Never Smokeless Tobacco Use:. Cigarettes, Yes, 10/09/2024 [facility] Comment on above: Result Comment: Elec tronically Signed By: REGINA MATTHEWS PA-C\.br\Date and Time Signed: 10/09/24 11:41 EDT 10-09-2024 [...] these instructions at home: Medicines ??? Take [id number] and prescription medicines only as told by [...] provider. Document Revised: 01/25/2021 Document Reviewed: 01/25/2021 [employer] Patient Education ? 2023 [employer] - ASO. [facility] 09-29-2024 Miscellaneous Notes Deemtria calls stating that she would like to know about incision care and when to remove sutures- discussed that sutures are chromic and should dissolve with washing gently over them. She states that Anupama does not want to shower daily, so she will write the order to wash gently over the incision with baby shampoo. Incision is healing well. documented in this encounter [facility] 09-29-2024 Telephone encounter Note Demetria calls stating that she would like to know about incision care and when to remove sutures- discussed that sutures are chromic and should dissolve with washing gently over them. She states that Anupama does not want to shower daily, so she will write the order to wash gently over the incision with baby shampoo. Incision is healing well. [facility] 09-29-2024 Nurse Note Summary: discharge Report called and given to [facility] Patient called and talked to daughter let her know that she was going to be leaving, patient had no belongings to send with her Patient left with [facility] - Elma Moreno RN 09/29/24 12:19 AM Multidisciplinary Rounds Attendees: Bedside RN, Unit clinical lead, PT, OT, KNUCKLE STRAP SEWER, and Care navigation Diet: Dietary Orders (From admission, onward) Start Ordered 09/24/24 1405 Adult diet Level 5 Minced and Moist diet; No straws Diet effective now Comments: Mildly thick liquids Question Answer Comment Diet Type: Level 5 Minced and Moist diet Additional Liquid/Fluid Modifiers: No straws 09/24/24 1407 PT OT KNUCKLE STRAP SEWER: PT OT [employer]LE [employer] Orders (From admission, onward) Start Ordered 09/25/24 [...] Motility Function panel. Acknowledged 09/24/24 1016 09/23/24 1826 Consult Speech Therapy- eval/treat Once Question Answer Comment Reason for ST? Bedside Swallow Reason for ST? Speech/Language/Cognition 09/23/24 182 Activity: Up with assist Comments: Alexis: Yes CVL: No Drips: None Intubated: No Family Issues: None Outstanding Tests/Procedures: None Barriers: None Discharge Plan: Needs PT/OT evaluation Multidisciplinary Rounds Attendees: Bedside RN, Unit clinical lead, PT, OT, KNUCKLE STRAP SEWER, and Care navigation Diet: Dietary Orders (From admission, onward) Start Ordered 09/23/242142 Adult diet Regular Texture Diet effective now Question: Diet Type: Answer: Regular Texture 09/23/242142 PT OT KNUCKLE STRAP SEWER: PT OT [employer]LE [employer] Orders (From admission, onward) Start Ordered 09/24/24 1017 Consult Speech Therapy- eval/treat (Adult Swallow Motility Function with Speech Consult eval & treat) Once Question Answer Comment Reason for ST? Video Swallow Video Swallow must be ordered within the Adult Swallow Motility Function panel. Acknowledged 09/24/24 1016 09/23/24 1826 Consult Speech Therapy- eval/treat Once Question Answer Comment Reason for ST? Bedside Swallow Reason for ST? Speech/Language/Cognition 09/23/24 182 Activity: Up with assist Comments: Alexis: Yes and Continues to meet requirements per urology leave until 09/29 CVL: No Drips: None Intubated: No Family Issues: None Outstanding Tests/Procedures: None Barriers: None Discharge Plan: Needs PT/OT evaluation [facility] Miscellaneous Notes Problem: Pain Goal: Patient goal is pain score less than 4, able to rest, and participant in treatment plan as appropriate Description: INTERVENTIONS: 1. Encourage patient or legal patient admitting representative to report early pain and ask [...] per policy 9. Teach patient or legal patient admitting representative interventions for comforting Outcome: Adequate for [...] at the bedside 7. Instruct patient/ patient patient admitting representative about use of safety devices 8. Include patient/ patient patient admitting representative in decisions related to safety Outcome: [...] hygiene technique. 7. Identify and instruct patient/patient patient admitting representative in use of appropriate isolation precautions for identified infection/symptoms. 8. Provide and discuss with patient/patient patient admitting representative on educational MDRO sheet. 9. Encourage and monitor nutritional status daily and consult mail reader if indicated. 10. Implement neutropenic guidelines as needed. Outcome: Adequate for Discharge Problem: Knowledge Deficit Goal: Patient/patient patient admitting representative demonstrates understanding of disease process, treatment [...] supplement as ordered 13. Collaborate with clinical mail reader 14. Include patient/ patient's patient admitting representative in decisions related to nutrition Outcome: [...] Score of =/> 25 or indicated by [facility] Assessment Goal: Patient should be free from fall Description: Interventions: 1. [place] to environment 2. Hourly rounds addressing the [...] non-skid footwear 11. Teach patient and patient patient admitting representative to maintain environment for safety and [...] (cane, walker) within reach 19. Request patient patient admitting representative bring adaptive equipment/mobility aids from home or obtain and provide as needed 20. Consult pharmacy regarding effects of med's affecting mobility, cognition, and alternatives 21. Obtain physician order for PT if risk factors associated with mobility are present 22. Obtain physician order for OT as appropriate 23. Utilize diversional activities 24. Educate patient and patient patient admitting representative how to maintain a safe environment during visitation times (notify nurse prior to leaving bedside) 25. Consider appropriateness of medical or non-front office medical assistant 26. Set up voiding schedule as appropriate [...] PO intake following exam. Prognosis Services: Skilled KNUCKLE STRAP SEWER services to address above deficits Prognosis/Potential: Good [...] MBSImP Overall Impression Scores Oral Impairment Total: 9 [...] Dysphagia Problem: Swallowing Dates: Start: 09/24/24 Disciplines: KNUCKLE STRAP SEWER Goal: LTG: Patient will tolerate least restrictive diet recommended by KNUCKLE STRAP SEWER without signs and symptoms of aspiration 90% of the time Dates: Start: 09/24/24 Expected End: 10/25/24 Disciplines: KNUCKLE STRAP SEWER Outcomes Date/Time User Outcome 09/28/24 MARCELA WhitfieldKNUCKLE STRAP SEWER Progressing Goal: STG: Patient will complete safety strategies independently during PO intake 90% of the time Dates: Start: 09/24/24 Expected End: 10/25/24 Disciplines: KNUCKLE STRAP SEWER Outcomes Date/Time User Outcome 09/28/24 MARCELA WhitfieldKNUCKLE STRAP SEWER Progressing Goal: STG: Patient will complete oral/ pharyngeal strengthening program with resistance with 90% accuracy with minimal cueing Dates: Start: 09/24/24 Expected End: 10/25/24 Disciplines: KNUCKLE STRAP SEWER Outcomes Date/Time User Outcome 09/28/24 MARCELA WhitfieldKNUCKLE STRAP SEWER Progressing Goal: STG: Patient will tolerate therapeutic feeding trials of advanced textures with 90% accuracy with minimal cueing Dates: Start: 09/24/24 Expected End: 10/25/24 Disciplines: KNUCKLE STRAP SEWER Outcomes Date/Time User Outcome 09/28/24 NATANAEL Whitfield Progressing Template: ST - Rehab Speech Problem: Auditory Comprehension Dates: Start: 09/24/24 Disciplines: KNUCKLE STRAP SEWER Goal: LTG: Patient will comprehend communication related to basic medical and social needs and utilize compensatory strategies to maintain safety in a functional living environment Dates: Start: 09/24/24 Expected End: 10/25/24 Disciplines: KNUCKLE STRAP SEWER Goal: STG: Patient will answer complex yes/no questions with 90% accuracy with minimal cueing Dates: Start: 09/24/24 Expected End: 10/25/24 Disciplines: KNUCKLE STRAP SEWER Goal: STG: Patient will complete 1-3 step commands with 90% accuracy with minimal cueing Dates: Start: 09/24/24 Expected End: 10/25/24 Disciplines: KNUCKLE STRAP SEWER Goal: STG: Patient will complete simple, phrase level auditory comprehension tasks with 90% accuracy with minimal cueing Dates: Start: 09/24/24 Expected End: 10/25/24 Disciplines: KNUCKLE STRAP SEWER Problem: Cognitive Linguistic Dates: Start: 09/24/24 Disciplines: KNUCKLE STRAP SEWER Goal: LTG: Patient will display functional cognitive-linguistic skills to demonstrate appropriate communication and safety within daily activities in a functional living environment Dates: Start: 09/24/24 Expected End: 10/25/24 Disciplines: KNUCKLE STRAP SEWER Goal: STG: Patient will demonstrate sustained attention by maintaining focus during a task for 10 minutes with minimal assistance Dates: Start: 09/24/24 Expected End: 10/25/24 Disciplines: KNUCKLE STRAP SEWER Goal: STG: Patient will be appropriately oriented to person, place, time and situation with 90% accuracy with minimal cueing Dates: Start: 09/24/24 Expected End: 10/25/24 Disciplines: KNUCKLE STRAP SEWER Goal: STG: Patient will describe/demonstrate/initiate use of 3 memory strategies with minimal cueing Dates: Start: 09/24/24 Expected End: 10/25/24 Disciplines: KNUCKLE STRAP SEWER Problem: High Level Language Dates: Start: 09/24/24 Disciplines: KNUCKLE STRAP SEWER Goal: LTG: Patient will demonstrate use of self-awareness, goal setting, planning, initiation, self-monitoring and problem solving during daily activities to improve safety and awareness in a functional living environment Dates: Start: 09/24/24 Expected End: 10/25/24 Disciplines: KNUCKLE STRAP SEWER Goal: STG: Patient will demonstrate functional problem solving and safety awareness with 90% accuracy in daily living tasks in order to increase safe interactions with environment and decrease assistance from caregivers Dates: Start: 09/24/24 Expected End: 10/25/24 Disciplines: KNUCKLE STRAP SEWER Problem: Speech Production Dates: Start: 09/24/24 Disciplines: KNUCKLE STRAP SEWER Goal: LTG: Patient will develop functional and intelligible speech and utilize compensatory strategies through the use of adequate labial and lingual function, increased articulatory precision and speech prosody Dates: Start: 09/24/24 Expected End: 10/25/24 Disciplines: KNUCKLE STRAP SEWER Goal: STG: Patient will use appropriate articulatory accuracy and speech rate when reading/speaking with 90% accuracy with minimal cueing Dates: Start: 09/24/24 Expected End: 10/25/24 Disciplines: KNUCKLE STRAP SEWER Goal: STG: Patient will complete rapid alternating verbal sequences (tongue twisters) with improved articulatory precision with 90% accuracy with minimal cueing Dates: Start: 09/24/24 Expected End: 10/25/24 Disciplines: KNUCKLE STRAP SEWER Problem: Verbal Expression Dates: Start: 09/24/24 Disciplines: KNUCKLE STRAP SEWER Goal: LTG: Patient will utilize compensatory strategies to communicate wants and needs effectively to different conversational partners, maintain safety and participate socially in a functional living environment Dates: Start: 09/24/24 Expected End: 10/25/24 Disciplines: KNUCKLE STRAP SEWER Goal: STG: Patient will describe objects, pictures (salient features) with 90% accuracy with minimal cueing to improve word retrieval skills Dates: Start: 09/24/24 Expected End: 10/25/24 Disciplines: KNUCKLE STRAP SEWER Goal: STG: Patient will respond to simple/complex open ended questions during activities of daily living with 90% accuracy with minimal cueing Dates: Start: 09/24/24 Expected End: 10/25/24 Disciplines: KNUCKLE STRAP SEWER Goal: STG: Patient will complete simple to complex divergent and convergent naming tasks with 90% accuracy with minimal cueing to improve thought organization Dates: Start: 09/24/24 Expected End: 10/25/24 Disciplines: KNUCKLE STRAP SEWER Speech Therapy Care Plan (Resolved) There are no resolved problems. Principal Problem: Altered mental status, unspecified altered mental status type Active Problems: Generalized anxiety disorder with panic attacks Hyperlipidemia, acquired Multiple sclerosis (CMS-HCC) LORENZO (obstructive sleep apnea) Primary hypertension Depression, unspecified Dysphagia, oropharyngeal phase DISCHARGE PLANNING NOTE BLS via PTN scheduled for today 09/28/24 at 4 PM to [facility]. confirmed in [facility]. DISCHARGE PLANNING NOTE Prior Auth approved for admission to : [facility] (P#: ; F#: ) Approval # [id number] Valid for Dates: 09/28/2024 - 09/30/2024 Speech Therapy Dysphagia Treatment Note Assessment: Current Diet Tolerance: Level 2 Mildly Thick and Level 5 Minced and Moist Progress: improving Pain Assessment Pain Assessment: No/denies pain Recommendations Diet: Level 5 minced and moist diet, level 2 mildly thick liquids (no straws) Discharge: [facility] Facility Precautions Aspiration Plan: Plan of Care: [...] Dysphagia Problem: Swallowing Dates: Start: 09/24/24 Disciplines: KNUCKLE STRAP SEWER Goal: LTG: Patient will tolerate least restrictive diet recommended by KNUCKLE STRAP SEWER without signs and symptoms of aspiration 90% of the time Dates: Start: 09/24/24 Expected End: 10/25/24 Disciplines: KNUCKLE STRAP SEWER Outcomes Date/Time User Outcome 09/28/24 NATANAEL Whitfield Progressing Goal: STG: Patient will complete safety strategies independently during PO intake 90% of the time Dates: Start: 09/24/24 Expected End: 10/25/24 Disciplines: KNUCKLE STRAP SEWER Outcomes Date/Time User Outcome 09/28/24 1126 Laurel Moralez, CCC-KNUCKLE STRAP SEWER Progressing Goal: STG: Patient will complete oral/ pharyngeal strengthening program with resistance with 90% accuracy with minimal cueing Dates: Start: 09/24/24 Expected End: 10/25/24 Disciplines: KNUCKLE STRAP SEWER Outcomes Date/Time User Outcome 09/28/24 1126 NATANAEL Perae Progressing Goal: STG: Patient will tolerate therapeutic feeding trials of advanced textures with 90% accuracy with minimal cueing Dates: Start: 09/24/24 Expected End: 10/25/24 Disciplines: KNUCKLE STRAP SEWER Outcomes Date/Time User Outcome 09/28/24 1126 Laurel Moralez [facility] Progressing Template: ST - Rehab Speech Problem: Auditory Comprehension Dates: Start: 09/24/24 Disciplines: KNUCKLE STRAP SEWER Goal: LTG: Patient will comprehend communication related to basic medical and social needs and utilize compensatory strategies to maintain safety in a functional living environment Dates: Start: 09/24/24 Expected End: 10/25/24 Disciplines: KNUCKLE STRAP SEWER Goal: STG: Patient will answer complex yes/no questions with 90% accuracy with minimal cueing Dates: Start: 09/24/24 Expected End: 10/25/24 Disciplines: KNUCKLE STRAP SEWER Goal: STG: Patient will complete 1-3 step commands with 90% accuracy with minimal cueing Dates: Start: 09/24/24 Expected End: 10/25/24 Disciplines: KNUCKLE STRAP SEWER Goal: STG: Patient will complete simple, phrase level auditory comprehension tasks with 90% accuracy with minimal cueing Dates: Start: 09/24/24 Expected End: 10/25/24 Disciplines: KNUCKLE STRAP SEWER Problem: Cognitive Linguistic Dates: Start: 09/24/24 Disciplines: KNUCKLE STRAP SEWER Goal: LTG: Patient will display functional cognitive-linguistic skills to demonstrate appropriate communication and safety within daily activities in a functional living environment Dates: Start: 09/24/24 Expected End: 10/25/24 Disciplines: KNUCKLE STRAP SEWER Goal: STG: Patient will demonstrate sustained attention by maintaining focus during a task for 10 minutes with minimal assistance Dates: Start: 09/24/24 Expected End: 10/25/24 Disciplines: KNUCKLE STRAP SEWER Goal: STG: Patient will be appropriately oriented to person, place, time and situation with 90% accuracy with minimal cueing Dates: Start: 09/24/24 Expected End: 10/25/24 Disciplines: KNUCKLE STRAP SEWER Goal: STG: Patient will describe/demonstrate/initiate use of 3 memory strategies with minimal cueing Dates: Start: 09/24/24 Expected End: 10/25/24 Disciplines: KNUCKLE STRAP SEWER Problem: High Level Language Dates: Start: 09/24/24 Disciplines: KNUCKLE STRAP SEWER Goal: LTG: Patient will demonstrate use of self-awareness, goal setting, planning, initiation, self-monitoring and problem solving during daily activities to improve safety and awareness in a functional living environment Dates: Start: 09/24/24 Expected End: 10/25/24 Disciplines: KNUCKLE STRAP SEWER Goal: STG: Patient will demonstrate functional problem solving and safety awareness with 90% accuracy in daily living tasks in order to increase safe interactions with environment and decrease assistance from caregivers Dates: Start: 09/24/24 Expected End: 10/25/24 Disciplines: KNUCKLE STRAP SEWER Problem: Speech Production Dates: Start: 09/24/24 Disciplines: KNUCKLE STRAP SEWER Goal: LTG: Patient will develop functional and intelligible speech and utilize compensatory strategies through the use of adequate labial and lingual function, increased articulatory precision and speech prosody Dates: Start: 09/24/24 Expected End: 10/25/24 Disciplines: KNUCKLE STRAP SEWER Goal: STG: Patient will use appropriate articulatory accuracy and speech rate when reading/speaking with 90% accuracy with minimal cueing Dates: Start: 09/24/24 Expected End: 10/25/24 Disciplines: KNUCKLE STRAP SEWER Goal: STG: Patient will complete rapid alternating verbal sequences (tongue twisters) with improved articulatory precision with 90% accuracy with minimal cueing Dates: Start: 09/24/24 Expected End: 10/25/24 Disciplines: KNUCKLE STRAP SEWER Problem: Verbal Expression Dates: Start: 09/24/24 Disciplines: KNUCKLE STRAP SEWER Goal: LTG: Patient will utilize compensatory strategies to communicate wants and needs effectively to different conversational partners, maintain safety and participate socially in a functional living environment Dates: Start: 09/24/24 Expected End: 10/25/24 Disciplines: KNUCKLE STRAP SEWER Goal: STG: Patient will describe objects, pictures (salient features) with 90% accuracy with minimal cueing to improve word retrieval skills Dates: Start: 09/24/24 Expected End: 10/25/24 Disciplines: KNUCKLE STRAP SEWER Goal: STG: Patient will respond to simple/complex open ended questions during activities of daily living with 90% accuracy with minimal cueing Dates: Start: 09/24/24 Expected End: 10/25/24 Disciplines: KNUCKLE STRAP SEWER Goal: STG: Patient will complete simple to complex divergent and convergent naming tasks with 90% accuracy with minimal cueing to improve thought organization Dates: Start: 09/24/24 Expected End: 10/25/24 Disciplines: KNUCKLE STRAP SEWER Speech Therapy Care Plan (Resolved) There are [...] Description: INTERVENTIONS: 1. Encourage patient or legal patient admitting representative to report early pain and ask [...] per policy 9. Teach patient or legal patient admitting representative interventions for comforting Outcome: Progressing Note: [...] at the bedside 7. Instruct patient/ patient patient admitting representative about use of safety devices 8. Include patient/ patient patient admitting representative in decisions related to safety Outcome: [...] hygiene technique. 7. Identify and instruct patient/patient patient admitting representative in use of appropriate isolation precautions for identified infection/symptoms. 8. Provide and discuss with patient/patient patient admitting representative on educational MDRO sheet. 9. Encourage and monitor nutritional status daily and consult mail reader if indicated. 10. Implement neutropenic guidelines as needed. Outcome: Progressing Note: Evaluation of progress towards goal: hand hygiene is preformed when entering and leaving the room. And no new s/s of infection are present. Will continue to monitor Problem: Knowledge Deficit Goal: Patient/patient patient admitting representative demonstrates understanding of disease process, treatment [...] supplement as ordered 13. Collaborate with clinical mail reader 14. Include patient/ patient's patient admitting representative in decisions related to nutrition Outcome: [...] Score of =/> 25 or indicated by [facility] Assessment Goal: Patient should be free from fall Description: Interventions: 1. [place] to environment 2. Hourly rounds addressing the [...] non-skid footwear 11. Teach patient and patient patient admitting representative to maintain environment for safety and [...] (cane, walker) within reach 19. Request patient patient admitting representative bring adaptive equipment/mobility aids from home or obtain and provide as needed 20. Consult pharmacy regarding effects of med's affecting mobility, cognition, and alternatives 21. Obtain physician order for PT if risk factors associated with mobility are present 22. Obtain physician order for OT as appropriate 23. Utilize diversional activities 24. Educate patient and patient patient admitting representative how to maintain a safe environment during visitation times (notify nurse prior to leaving bedside) 25. Consider appropriateness of medical or non-front office medical assistant 26. Set up voiding schedule as appropriate [...] discharge at this time, [facility] JACQUELINE Ayala 09/28/24 1016 DISCHARGE PLANNING NOTE Case discussed in daily transition rounds and chart reviewed by CN. Barriers to discharge include SNF precert Discharge Plan remains: return to [facility] SNF. Waiting insurance approval for SNF stay- precert initiated on 09/26. Family is aware and agreeable to transition plan. CN will continue to follow and is available should any further needs arise. - RAMIREZ COTTO 09/28/24 9:44 AM Insurance approved SNF stay. Discharge written, CRF complete. Social work task [facility] to arrange BLS transport and [facility] ambulance was arranged. [facility] notified of discharge and CRF sent. [...] Description: INTERVENTIONS: 1. Encourage patient or legal patient admitting representative to report early pain and ask [...] per policy 9. Teach patient or legal patient admitting representative interventions for comforting Outcome: Progressing Note: [...] at the bedside 7. Instruct patient/ patient patient admitting representative about use of safety devices 8. Include patient/ patient patient admitting representative in decisions related to safety Outcome: [...] hygiene technique. 7. Identify and instruct patient/patient patient admitting representative in use of appropriate isolation precautions for identified infection/symptoms. 8. Provide and discuss with patient/patient patient admitting representative on educational MDRO sheet. 9. Encourage and monitor nutritional status daily and consult mail reader if indicated. 10. Implement neutropenic guidelines as needed. Outcome: Progressing Note: Evaluation of progress towards goal: Supervisor Spring Up assessed pt risk for infection in the beginning and throughout shift. Pt remains afebrile. Will continue to monitor. Problem: Knowledge Deficit Goal: Patient/patient patient admitting representative demonstrates understanding of disease process, treatment plan, medications, and discharge instructions Description: INTERVENTIONS 1. Complete learning assessment and assess knowledge base 2. Provide teaching at level of understanding 3. Provide teaching via preferred learning method(s) Outcome: Progressing Note: Evaluation of progress towards goal: Supervisor Spring Up educated pt on admission disease, medications, treatment, [...] supplement as ordered 13. Collaborate with clinical mail reader 14. Include patient/ patient's patient admitting representative in decisions related to nutrition Outcome: [...] be free from fall Description: Interventions: 1. [place] to environment 2. Hourly rounds addressing the [...] non-skid footwear 11. Teach patient and patient patient admitting representative to maintain environment for safety and [...] (cane, walker) within reach 19. Request patient patient admitting representative bring adaptive equipment/mobility aids from home or obtain and provide as needed 20. Consult pharmacy regarding effects of med's affecting mobility, cognition, and alternatives 21. Obtain physician order for PT if risk factors associated with mobility are present 22. Obtain physician order for OT as appropriate 23. Utilize diversional activities 24. Educate patient and patient patient admitting representative how to maintain a safe environment during visitation times (notify nurse prior to leaving bedside) 25. Consider appropriateness of medical or non-front office medical assistant 26. Set up voiding schedule as appropriate (every 2 hours) Outcome: Progressing Note: Evaluation of progress towards goal: Supervisor Spring Up assessed pt fall precautions in the beginning [...] Description: INTERVENTIONS: 1. Encourage patient or legal patient admitting representative to report early pain and ask [...] per policy 9. Teach patient or legal patient admitting representative interventions for comforting Outcome: Progressing Note: [...] at the bedside 7. Instruct patient/ patient patient admitting representative about use of safety devices 8. Include patient/ patient patient admitting representative in decisions related to safety Outcome: [...] hygiene technique. 7. Identify and instruct patient/patient patient admitting representative in use of appropriate isolation precautions for identified infection/symptoms. 8. Provide and discuss with patient/patient patient admitting representative on educational MDRO sheet. 9. Encourage and monitor nutritional status daily and consult mail reader if indicated. 10. Implement neutropenic guidelines as needed. Outcome: Progressing Note: Evaluation of progress towards goal: Patient remains afebrile with absence of typical signs of infection such as redness, swelling, purulent drainage, etc. Labs remain within defined limits. Infection preventative measures maintained. Will continue to monitor patient for any signs or symptoms indicating infection while providing care. Problem: Knowledge Deficit Goal: Patient/patient patient admitting representative demonstrates understanding of disease process, treatment [...] supplement as ordered 13. Collaborate with clinical mail reader 14. Include patient/ patient's patient admitting representative in decisions related to nutrition Outcome: Progressing Note: Evaluation of progress towards goal: Patient/patient's patient admitting representative is involved in decisions related to [...] be free from fall Description: Interventions: 1. [place] to environment 2. Hourly rounds addressing the [...] non-skid footwear 11. Teach patient and patient patient admitting representative to maintain environment for safety and [...] (cane, walker) within reach 19. Request patient patient admitting representative bring adaptive equipment/mobility aids from home or obtain and provide as needed 20. Consult pharmacy regarding effects of med's affecting mobility, cognition, and alternatives 21. Obtain physician order for PT if risk factors associated with mobility are present 22. Obtain physician order for OT as appropriate 23. Utilize diversional activities 24. Educate patient and patient patient admitting representative how to maintain a safe environment during visitation times (notify nurse prior to leaving bedside) 25. Consider appropriateness of medical or non-front office medical assistant 26. Set up voiding schedule as appropriate [...] Description: INTERVENTIONS: 1. Encourage patient or legal patient admitting representative to report early pain and ask [...] per policy 9. Teach patient or legal patient admitting representative interventions for comforting Outcome: Progressing Note: [...] at the bedside 7. Instruct patient/ patient patient admitting representative about use of safety devices 8. Include patient/ patient patient admitting representative in decisions related to safety Outcome: Progressing Note: Evaluation of progress towards goal: Patient free from injury; bed to low position; skid free socks applied; call light in reach Problem: Knowledge Deficit Goal: Patient/patient patient admitting representative demonstrates understanding of disease process, treatment [...] Description: INTERVENTIONS: 1. Encourage patient or legal patient admitting representative to report early pain and ask [...] per policy 9. Teach patient or legal patient admitting representative interventions for comforting Outcome: Progressing Note: [...] at the bedside 7. Instruct patient/ patient patient admitting representative about use of safety devices 8. Include patient/ patient patient admitting representative in decisions related to safety Outcome: [...] hygiene technique. 7. Identify and instruct patient/patient patient admitting representative in use of appropriate isolation precautions for identified infection/symptoms. 8. Provide and discuss with patient/patient patient admitting representative on educational MDRO sheet. 9. Encourage and monitor nutritional status daily and consult mail reader if indicated. 10. Implement neutropenic guidelines as needed. Outcome: Progressing Note: Evaluation of progress towards goal: Patient remains afebrile with absence of typical signs of infection such as redness, swelling, purulent drainage, etc. Labs remain within defined limits. Infection preventative measures maintained. Will continue to monitor patient for any signs or symptoms indicating infection while providing care. \ Problem: Knowledge Deficit Goal: Patient/patient patient admitting representative demonstrates understanding of disease process, treatment [...] supplement as ordered 13. Collaborate with clinical mail reader 14. Include patient/ patient's patient admitting representative in decisions related to nutrition Outcome: Progressing Note: Evaluation of progress towards goal: Patient/patient's patient admitting representative is involved in decisions related to [...] Score of =/> 25 or indicated by [facility] Assessment Goal: Patient should be free from fall Description: Interventions: 1. [place] to environment 2. Hourly rounds addressing the [...] non-skid footwear 11. Teach patient and patient patient admitting representative to maintain environment for safety and [...] (cane, walker) within reach 19. Request patient patient admitting representative bring adaptive equipment/mobility aids from home or obtain and provide as needed 20. Consult pharmacy regarding effects of med's affecting mobility, cognition, and alternatives 21. Obtain physician order for PT if risk factors associated with mobility are present 22. Obtain physician order for OT as appropriate 23. Utilize diversional activities 24. Educate patient and patient patient admitting representative how to maintain a safe environment during visitation times (notify nurse prior to leaving bedside) 25. Consider appropriateness of medical or non-front office medical assistant 26. Set up voiding schedule as appropriate [...] auth submitted to: [employer] Via: [employer] On behalf of : [facility] (P#: ; F#: ) Ref# [id number] DISCHARGE PLANNING NOTE Case discussed in daily transition rounds and chart reviewed by CN. Barriers to discharge include IV Decadron, IV Keppra, D2.5, IV Mag Discharge Plan remains: return to [facility] SNF. PT/OT recommending SNF. Social work sent therapy evaluations to [facility] and they are ready to accept [...] Description: INTERVENTIONS: 1. Encourage patient or legal patient admitting representative to report early pain and ask [...] per policy 9. Teach patient or legal patient admitting representative interventions for comforting Outcome: Progressing Note: [...] at the bedside 7. Instruct patient/ patient patient admitting representative about use of safety devices 8. Include patient/ patient patient admitting representative in decisions related to safety Outcome: Progressing Note: Evaluation of progress towards goal: Patient free from injury; bed to low position; skid free socks applied; call light in reach Problem: Knowledge Deficit Goal: Patient/patient patient admitting representative demonstrates understanding of disease process, treatment [...] Therapy Evaluation Discharge Recommendations OT Recommendations : [facility] SNF/ECF Comments: Recommend SNF to inc [...] status Pt is 54 y/o female admitted 09/18/24 from SNF, initially went to [place] ED for altered mental status, CT shows 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 with Shift,transfer to [facility] overnight-admit to MICU 09/19: Consults to nephrology [...] Medical History: Diagnosis Date MS (multiple sclerosis) ([facility]) 2012 Past Surgical History: Procedure Laterality Date CARPAL TUNNEL RELEASE Left SHOULDER ARTHROSCOPY W/ ROTATOR CUFF REPAIR Left SYNAPTIVE CRANIOTOMY EXCISION TUMOR Right 09/23/2024 Performed by Jair Espinal MD at [facility] OT Treatment/Interventions: Functional transfer training, [...] skinny stedy, arterial line, alexis, repositioning sling Telemetry/Tower Cleaner: Yes Oxygen Used: room air Other: high [...] month. Per EMR pt has been at [place] Prior Function Lives With: Son (works 3rd [...] EOB with Max Ax 2 in skinny moran- achieved minimal clearance of buttocks from EOB. [...] Physical Therapy Evaluation Discharge Recommendations PT Recommendations: [facility] SNF/ECF Comments: due to decreased functional [...] 6 Clicks: Basic Mobility Raw Score: 8 [facility] G Code Modifier: CM Therapy Plan Need for skilled Physical Therapy to address deficits in functional mobility due to a status decline resulting from deconditioning and altered mental status Pt admitted 09/18/24 from SNF, initially went to [place] ED for altered mental status, CT shows 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 with Shift,transfer to [facility] overnight-admit to MICU 09/19: Consults to [...] Medical History: Diagnosis Date MS (multiple sclerosis) ([facility]) 2012 Past Surgical History: Procedure Laterality Date CARPAL TUNNEL RELEASE Left SHOULDER ARTHROSCOPY W/ ROTATOR CUFF REPAIR Left SYNAPTIVE CRANIOTOMY EXCISION TUMOR Right 09/23/2024 Performed by Jair Espinal MD at [facility] PT Treatment/Interventions: Functional transfer training, [...] gait belt, skinny stedy, arterial line, alexis Telemetry/Tower Cleaner: Yes Oxygen Used: room air Other: high [...] poor historian, asking for pizza and calling marine underwriter whit, pt tried to pull out [...] with panic attacks Hyperlipidemia, acquired Multiple sclerosis ([facility]) LORENZO (obstructive sleep apnea) Primary hypertension Depression, [...] to: SNF Discharge Disposition SNF SNF Name [facility] Phone: [facility] SNF Accepted? Yes Does the patient need discharge transportation arranged? Yes Transportation Arranged Ambulance Patient choice offered Yes List Provided Patient declined Patient Declined Active with Provider Case discussed in daily transition rounds and chart reviewed by CN. Barriers to discharge include PT/OT to see, alexis, wounds(skin tears), monitoring neuro status. Discharge Plan remains: [facility]. Tasked [facility] to send updated clinical notes. Will need PT/OT to see before we can submit for auth. CN reached out to therapy and was told patient is on list to be seen today. . CN will continue to follow and is available should any further needs arise. - Manjinder Suresh RN 09/25/24 2:25 PM DISCHARGE PLANNING NOTE Updates to [facility] (P#: ; F#: ) Problem: Pain Goal: Patient goal is pain score less than 4, able to rest, and participant in treatment plan as appropriate Description: INTERVENTIONS: 1. Encourage patient or legal patient admitting representative to report early pain and ask [...] per policy 9. Teach patient or legal patient admitting representative interventions for comforting Outcome: Progressing Note: [...] at the bedside 7. Instruct patient/ patient patient admitting representative about use of safety devices 8. Include patient/ patient patient admitting representative in decisions related to safety Outcome: [...] hygiene technique. 7. Identify and instruct patient/patient patient admitting representative in use of appropriate isolation precautions for identified infection/symptoms. 8. Provide and discuss with patient/patient patient admitting representative on educational MDRO sheet. 9. Encourage and monitor nutritional status daily and consult mail reader if indicated. 10. Implement neutropenic guidelines as needed. Outcome: Progressing Note: Evaluation of progress towards goal: Patient remains free from signs of infection at this time. Will continue to monitor. Problem: Knowledge Deficit Goal: Patient/patient patient admitting representative demonstrates understanding of disease process, treatment [...] supplement as ordered 13. Collaborate with clinical mail reader 14. Include patient/ patient's patient admitting representative in decisions related to nutrition Outcome: [...] Score of =/> 25 or indicated by [facility] Assessment Goal: Patient should be free from fall Description: Interventions: 1. [place] to environment 2. Hourly rounds addressing the [...] non-skid footwear 11. Teach patient and patient patient admitting representative to maintain environment for safety and [...] (cane, walker) within reach 19. Request patient patient admitting representative bring adaptive equipment/mobility aids from home or obtain and provide as needed 20. Consult pharmacy regarding effects of med's affecting mobility, cognition, and alternatives 21. Obtain physician order for PT if risk factors associated with mobility are present 22. Obtain physician order for OT as appropriate 23. Utilize diversional activities 24. Educate patient and patient patient admitting representative how to maintain a safe environment during visitation times (notify nurse prior to leaving bedside) 25. Consider appropriateness of medical or non-front office medical assistant 26. Set up voiding schedule as appropriate [...] Description: INTERVENTIONS: 1. Encourage patient or legal patient admitting representative to report early pain and ask [...] per policy 9. Teach patient or legal patient admitting representative interventions for comforting Outcome: Progressing Note: [...] at the bedside 7. Instruct patient/ patient patient admitting representative about use of safety devices 8. Include patient/ patient patient admitting representative in decisions related to safety Outcome: [...] hygiene technique. 7. Identify and instruct patient/patient patient admitting representative in use of appropriate isolation precautions for identified infection/symptoms. 8. Provide and discuss with patient/patient patient admitting representative on educational MDRO sheet. 9. Encourage and monitor nutritional status daily and consult mail reader if indicated. 10. Implement neutropenic guidelines as needed. Outcome: Progressing Note: Evaluation of progress towards goal: Patient remains free from signs of infection at this time. Will continue to monitor. Problem: Knowledge Deficit Goal: Patient/patient patient admitting representative demonstrates understanding of disease process, treatment [...] Score of =/> 25 or indicated by [facility] Assessment Goal: Patient should be free from fall Description: Interventions: 1. [place] to environment 2. Hourly rounds addressing the [...] non-skid footwear 11. Teach patient and patient patient admitting representative to maintain environment for safety and [...] (cane, walker) within reach 19. Request patient patient admitting representative bring adaptive equipment/mobility aids from home or obtain and provide as needed 20. Consult pharmacy regarding effects of med's affecting mobility, cognition, and alternatives 21. Obtain physician order for PT if risk factors associated with mobility are present 22. Obtain physician order for OT as appropriate 23. Utilize diversional activities 24. Educate patient and patient patient admitting representative how to maintain a safe environment during visitation times (notify nurse prior to leaving bedside) 25. Consider appropriateness of medical or non-front office medical assistant 26. Set up voiding schedule as appropriate [...] to see. Discharge Plan remains: Return to [facility]-will need precert. CN will continue to [...] strategies Medications: In applesauce/puree Referrals: Dysphagia therapy, Newspaper Subscription Solicitor Discharge Recommendations: (ongoing ST services) Pt educated [...] with h/o MS, who initially presented to [facility] 09/18 from her rehab facility with complaints of altered mental status. Per chart review patient was recently treated for rhabdomyolysis. 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 Pt was transferred to [facility] for neurosurgery consult. 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 Speech consulted post operatively to assess swallow function prior to diet initiation. Prognosis Services: Skilled KNUCKLE STRAP SEWER services to address above deficits Prognosis/Potential: Good [...] Dysphagia Problem: Swallowing Dates: Start: 09/24/24 Disciplines: KNUCKLE STRAP SEWER Goal: LTG: Patient will tolerate least restrictive diet recommended by KNUCKLE STRAP SEWER without signs and symptoms of aspiration 90% of the time Dates: Start: 09/24/24 Expected End: 10/25/24 Disciplines: KNUCKLE STRAP SEWER Goal: STG: Patient will complete safety strategies independently during PO intake 90% of the time Dates: Start: 09/24/24 Expected End: 10/25/24 Disciplines: KNUCKLE STRAP SEWER Goal: STG: Patient will complete oral/ pharyngeal strengthening program with resistance with 90% accuracy with minimal cueing Dates: Start: 09/24/24 Expected End: 10/25/24 Disciplines: KNUCKLE STRAP SEWER Goal: STG: Patient will tolerate therapeutic feeding trials of advanced textures with 90% accuracy with minimal cueing Dates: Start: 09/24/24 Expected End: 10/25/24 Disciplines: KNUCKLE STRAP SEWER Template: ST - Rehab Speech Problem: Auditory Comprehension Dates: Start: 09/24/24 Disciplines: KNUCKLE STRAP SEWER Goal: LTG: Patient will comprehend communication related to basic medical and social needs and utilize compensatory strategies to maintain safety in a functional living environment Dates: Start: 09/24/24 Expected End: 10/25/24 Disciplines: KNUCKLE STRAP SEWER Goal: STG: Patient will answer complex yes/no questions with 90% accuracy with minimal cueing Dates: Start: 09/24/24 Expected End: 10/25/24 Disciplines: KNUCKLE STRAP SEWER Goal: STG: Patient will complete 1-3 step commands with 90% accuracy with minimal cueing Dates: Start: 09/24/24 Expected End: 10/25/24 Disciplines: KNUCKLE STRAP SEWER Goal: STG: Patient will complete simple, phrase level auditory comprehension tasks with 90% accuracy with minimal cueing Dates: Start: 09/24/24 Expected End: 10/25/24 Disciplines: KNUCKLE STRAP SEWER Problem: Cognitive Linguistic Dates: Start: 09/24/24 Disciplines: KNUCKLE STRAP SEWER Goal: LTG: Patient will display functional cognitive-linguistic skills to demonstrate appropriate communication and safety within daily activities in a functional living environment Dates: Start: 09/24/24 Expected End: 10/25/24 Disciplines: KNUCKLE STRAP SEWER Goal: STG: Patient will demonstrate sustained attention by maintaining focus during a task for 10 minutes with minimal assistance Dates: Start: 09/24/24 Expected End: 10/25/24 Disciplines: KNUCKLE STRAP SEWER Goal: STG: Patient will be appropriately oriented to person, place, time and situation with 90% accuracy with minimal cueing Dates: Start: 09/24/24 Expected End: 10/25/24 Disciplines: KNUCKLE STRAP SEWER Goal: STG: Patient will describe/demonstrate/initiate use of 3 memory strategies with minimal cueing Dates: Start: 09/24/24 Expected End: 10/25/24 Disciplines: KNUCKLE STRAP SEWER Problem: High Level Language Dates: Start: 09/24/24 Disciplines: KNUCKLE STRAP SEWER Goal: LTG: Patient will demonstrate use of self-awareness, goal setting, planning, initiation, self-monitoring and problem solving during daily activities to improve safety and awareness in a functional living environment Dates: Start: 09/24/24 Expected End: 10/25/24 Disciplines: KNUCKLE STRAP SEWER Goal: STG: Patient will demonstrate functional problem solving and safety awareness with 90% accuracy in daily living tasks in order to increase safe interactions with environment and decrease assistance from caregivers Dates: Start: 09/24/24 Expected End: 10/25/24 Disciplines: KNUCKLE STRAP SEWER Problem: Speech Production Dates: Start: 09/24/24 Disciplines: KNUCKLE STRAP SEWER Goal: LTG: Patient will develop functional and intelligible speech and utilize compensatory strategies through the use of adequate labial and lingual function, increased articulatory precision and speech prosody Dates: Start: 09/24/24 Expected End: 10/25/24 Disciplines: KNUCKLE STRAP SEWER Goal: STG: Patient will use appropriate articulatory accuracy and speech rate when reading/speaking with 90% accuracy with minimal cueing Dates: Start: 09/24/24 Expected End: 10/25/24 Disciplines: KNUCKLE STRAP SEWER Goal: STG: Patient will complete rapid alternating verbal sequences (tongue twisters) with improved articulatory precision with 90% accuracy with minimal cueing Dates: Start: 09/24/24 Expected End: 10/25/24 Disciplines: KNUCKLE STRAP SEWER Problem: Verbal Expression Dates: Start: 09/24/24 Disciplines: KNUCKLE STRAP SEWER Goal: LTG: Patient will utilize compensatory strategies to communicate wants and needs effectively to different conversational partners, maintain safety and participate socially in a functional living environment Dates: Start: 09/24/24 Expected End: 10/25/24 Disciplines: KNUCKLE STRAP SEWER Goal: STG: Patient will describe objects, pictures (salient features) with 90% accuracy with minimal cueing to improve word retrieval skills Dates: Start: 09/24/24 Expected End: 10/25/24 Disciplines: KNUCKLE STRAP SEWER Goal: STG: Patient will respond to simple/complex open ended questions during activities of daily living with 90% accuracy with minimal cueing Dates: Start: 09/24/24 Expected End: 10/25/24 Disciplines: KNUCKLE STRAP SEWER Goal: STG: Patient will complete simple to complex divergent and convergent naming tasks with 90% accuracy with minimal cueing to improve thought organization Dates: Start: 09/24/24 Expected End: 10/25/24 Disciplines: KNUCKLE STRAP SEWER Speech Therapy Care Plan (Resolved) There are no resolved problems. Principal Problem: Altered mental status, unspecified altered mental status type Active Problems: Generalized anxiety disorder with panic attacks Hyperlipidemia, acquired Multiple sclerosis ([facility]) LORENZO (obstructive sleep apnea) Primary hypertension Depression, [...] swallow. Please place order. Prognosis Services: Skilled KNUCKLE STRAP SEWER services to address above deficits Prognosis/Potential: Good [...] continue to follow along. Prognosis Services: Skilled KNUCKLE STRAP SEWER services to address the above deficits Prognosis/Potential: [...] Dysphagia Problem: Swallowing Dates: Start: 09/24/24 Disciplines: KNUCKLE STRAP SEWER Goal: LTG: Patient will tolerate least restrictive diet recommended by KNUCKLE STRAP SEWER without signs and symptoms of aspiration 90% of the time Dates: Start: 09/24/24 Expected End: 10/25/24 Disciplines: KNUCKLE STRAP SEWER Goal: STG: Patient will complete safety strategies independently during PO intake 90% of the time Dates: Start: 09/24/24 Expected End: 10/25/24 Disciplines: KNUCKLE STRAP SEWER Goal: STG: Patient will complete oral/ pharyngeal strengthening program with resistance with 90% accuracy with minimal cueing Dates: Start: 09/24/24 Expected End: 10/25/24 Disciplines: KNUCKLE STRAP SEWER Goal: STG: Patient will tolerate therapeutic feeding trials of advanced textures with 90% accuracy with minimal cueing Dates: Start: 09/24/24 Expected End: 10/25/24 Disciplines: KNUCKLE STRAP SEWER Template: ST - Rehab Speech Problem: Auditory Comprehension Dates: Start: 09/24/24 Disciplines: KNUCKLE STRAP SEWER Goal: LTG: Patient will comprehend communication related to basic medical and social needs and utilize compensatory strategies to maintain safety in a functional living environment Dates: Start: 09/24/24 Expected End: 10/25/24 Disciplines: KNUCKLE STRAP SEWER Goal: STG: Patient will answer complex yes/no questions with 90% accuracy with minimal cueing Dates: Start: 09/24/24 Expected End: 10/25/24 Disciplines: KNUCKLE STRAP SEWER Goal: STG: Patient will complete 1-3 step commands with 90% accuracy with minimal cueing Dates: Start: 09/24/24 Expected End: 10/25/24 Disciplines: KNUCKLE STRAP SEWER Goal: STG: Patient will complete simple, phrase level auditory comprehension tasks with 90% accuracy with minimal cueing Dates: Start: 09/24/24 Expected End: 10/25/24 Disciplines: KNUCKLE STRAP SEWER Problem: Cognitive Linguistic Dates: Start: 09/24/24 Disciplines: KNUCKLE STRAP SEWER Goal: LTG: Patient will display functional cognitive-linguistic skills to demonstrate appropriate communication and safety within daily activities in a functional living environment Dates: Start: 09/24/24 Expected End: 10/25/24 Disciplines: KNUCKLE STRAP SEWER Goal: STG: Patient will demonstrate sustained attention by maintaining focus during a task for 10 minutes with minimal assistance Dates: Start: 09/24/24 Expected End: 10/25/24 Disciplines: KNUCKLE STRAP SEWER Goal: STG: Patient will be appropriately oriented to person, place, time and situation with 90% accuracy with minimal cueing Dates: Start: 09/24/24 Expected End: 10/25/24 Disciplines: KNUCKLE STRAP SEWER Goal: STG: Patient will describe/demonstrate/initiate use of 3 memory strategies with minimal cueing Dates: Start: 09/24/24 Expected End: 10/25/24 Disciplines: KNUCKLE STRAP SEWER Problem: High Level Language Dates: Start: 09/24/24 Disciplines: KNUCKLE STRAP SEWER Goal: LTG: Patient will demonstrate use of self-awareness, goal setting, planning, initiation, self-monitoring and problem solving during daily activities to improve safety and awareness in a functional living environment Dates: Start: 09/24/24 Expected End: 10/25/24 Disciplines: KNUCKLE STRAP SEWER Goal: STG: Patient will demonstrate functional problem solving and safety awareness with 90% accuracy in daily living tasks in order to increase safe interactions with environment and decrease assistance from caregivers Dates: Start: 09/24/24 Expected End: 10/25/24 Disciplines: KNUCKLE STRAP SEWER Problem: Speech Production Dates: Start: 09/24/24 Disciplines: KNUCKLE STRAP SEWER Goal: LTG: Patient will develop functional and intelligible speech and utilize compensatory strategies through the use of adequate labial and lingual function, increased articulatory precision and speech prosody Dates: Start: 09/24/24 Expected End: 10/25/24 Disciplines: KNUCKLE STRAP SEWER Goal: STG: Patient will use appropriate articulatory accuracy and speech rate when reading/speaking with 90% accuracy with minimal cueing Dates: Start: 09/24/24 Expected End: 10/25/24 Disciplines: KNUCKLE STRAP SEWER Goal: STG: Patient will complete rapid alternating verbal sequences (tongue twisters) with improved articulatory precision with 90% accuracy with minimal cueing Dates: Start: 09/24/24 Expected End: 10/25/24 Disciplines: KNUCKLE STRAP SEWER Problem: Verbal Expression Dates: Start: 09/24/24 Disciplines: KNUCKLE STRAP SEWER Goal: LTG: Patient will utilize compensatory strategies to communicate wants and needs effectively to different conversational partners, maintain safety and participate socially in a functional living environment Dates: Start: 09/24/24 Expected End: 10/25/24 Disciplines: KNUCKLE STRAP SEWER Goal: STG: Patient will describe objects, pictures (salient features) with 90% accuracy with minimal cueing to improve word retrieval skills Dates: Start: 09/24/24 Expected End: 10/25/24 Disciplines: KNUCKLE STRAP SEWER Goal: STG: Patient will respond to simple/complex open ended questions during activities of daily living with 90% accuracy with minimal cueing Dates: Start: 09/24/24 Expected End: 10/25/24 Disciplines: KNUCKLE STRAP SEWER Goal: STG: Patient will complete simple to complex divergent and convergent naming tasks with 90% accuracy with minimal cueing to improve thought organization Dates: Start: 09/24/24 Expected End: 10/25/24 Disciplines: KNUCKLE STRAP SEWER Speech Therapy Care Plan (Resolved) There are no resolved problems. Principal Problem: Altered mental status, unspecified altered mental status type Active Problems: Generalized anxiety disorder with panic attacks Hyperlipidemia, acquired Multiple sclerosis ([facility]-HCC) LORENZO (obstructive sleep apnea) Primary hypertension Depression, unspecified Dysphagia, oropharyngeal phase No restraints Problem: Safety - Medical Restraint Goal: Remains free of injury from restraints (Restraint for Interference with Automatic Operator) Description: INTERVENTIONS: 1. Determine that other, less [...] Free from restraint(s) (Restraint for Interference with Automatic Operator) Description: INTERVENTIONS: 1. ONCE/SHIFT or MINIMUM Q12H: [...] Description: INTERVENTIONS: 1. Encourage patient or legal patient admitting representative to report early pain and ask [...] per policy 9. Teach patient or legal patient admitting representative interventions for comforting Outcome: Progressing Note: [...] at the bedside 7. Instruct patient/ patient patient admitting representative about use of safety devices 8. Include patient/ patient patient admitting representative in decisions related to safety Outcome: [...] hygiene technique. 7. Identify and instruct patient/patient patient admitting representative in use of appropriate isolation precautions for identified infection/symptoms. 8. Provide and discuss with patient/patient patient admitting representative on educational MDRO sheet. 9. Encourage and monitor nutritional status daily and consult mail reader if indicated. 10. Implement neutropenic guidelines as needed. Outcome: Progressing Note: Evaluation of progress towards goal: Labs and vitals monitored as ordered. Medications administered as ordered. Patient remains free from infection at this time. Problem: Knowledge Deficit Goal: Patient/patient patient admitting representative demonstrates understanding of disease process, treatment [...] supplement as ordered 13. Collaborate with clinical mail reader 14. Include patient/ patient's patient admitting representative in decisions related to nutrition Outcome: [...] be free from fall Description: Interventions: 1. [place] to environment 2. Hourly rounds addressing the [...] non-skid footwear 11. Teach patient and patient patient admitting representative to maintain environment for safety and [...] (cane, walker) within reach 19. Request patient patient admitting representative bring adaptive equipment/mobility aids from home or obtain and provide as needed 20. Consult pharmacy regarding effects of med's affecting mobility, cognition, and alternatives 21. Obtain physician order for PT if risk factors associated with mobility are present 22. Obtain physician order for OT as appropriate 23. Utilize diversional activities 24. Educate patient and patient patient admitting representative how to maintain a safe environment during visitation times (notify nurse prior to leaving bedside) 25. Consider appropriateness of medical or non-front office medical assistant 26. Set up voiding schedule as appropriate [...] injury from restraints (Restraint for Interference with Automatic Operator) Description: INTERVENTIONS: 1. Determine that other, less [...] Free from restraint(s) (Restraint for Interference with Automatic Operator) Description: INTERVENTIONS: 1. ONCE/SHIFT or MINIMUM Q12H: [...] then fastened to the bed with Rivera head sugar reprocess operator. Her cranial anatomy was registered to the [employer] software with good accuracy. Stealth probe was [...] replaced and fixed to the skull with Rives mini screws and plates. The incision was then irrigated with antibiotic infused saline and closed in the standard layered fashion. Sterile dressing was applied. The patient was awakened, extubated, and transported to the recovery room with stable vital signs. Brief Post-op Note NAME: Anupama Vasquez : 1970 PROCEDURE DATE: 09/23/2024 Surgeon: Surgeons and Role: * Jair Espinal MD - Primary Assistants: None Staff: Composite Laminator Primary: Javier Argueta RN Composite Laminator Relief: Julia Lofton RN; Sherrie Leiva RN Scrub Person: ST Ester Pre-op Diagnosis: brain tumor Procedure Details: Procedure(s): SYNAPTIVE CRANIOTOMY EXCISION TUMOR (Right) - Wound Class: Clean - Incision Closure: Deep and Superficial Layers Anesthesia Type: General * No Diagnosis Codes entered * Complications: none Additions (Drains, Specimens, Implants): Drains: NG/OG Tube 09/23/24 Nasogastric Right nostril (Active) Status Clamped 09/23/24 1538 Site Assessment Clean;Dry;Intact 09/23/24 1538 Secured at (cm) 55 cm 09/23/24 1538 Securement Method Plastic tape;Secured right 09/23/24 [...] Implant Name Type Inv. Item Serial No. Elevator Worker Lot No. LRB No. Used Action PATCH DURA 3X3IN THK3.5MM CRNMXF DRMTRX-ONLAY + NPOR RGNRT RPL [id number] - [id number] Graft PATCH DURA 3X3IN THK3.5MM CRNMXF DRMTRX-ONLAY + NPOR RGNRT RPL [id number] JIM [employer]ANIOM[employer] [id number] Right 1 Implanted PLATE BN 12MM 2 HL LP BAR TAB UNV NEURO II CRNMXF TI NS 1.5 - [id number] Plate PLATE BN 12MM 2 HL LP BAR TAB UNV NEURO II CRNMXF TI NS 1.5 JIM [employer] Right 2 Implanted COVER BUR HL CRNFCL 10MMX.5MM LP TAB STRL LF DISP - [id number] Plate COVER BUR HL CRNFCL 10MMX.5MM LP TAB STRL LF DISP JIM [employer] Right 1 Implanted SCREW BN 4MM 1.5MM SLF DRL XPN CRNMXF STRL MUST ORDER IN MULTIPLES OF 5EA - [id number] Screw SCREW BN 4MM 1.5MM SLF DRL [...] Free from restraint(s) (Restraint for Interference with Automatic Operator) Description: INTERVENTIONS: 1. ONCE/SHIFT or MINIMUM Q12H: [...] Description: INTERVENTIONS: 1. Encourage patient or legal patient admitting representative to report early pain and ask [...] per policy 9. Teach patient or legal patient admitting representative interventions for comforting Outcome: Progressing Note: [...] at the bedside 7. Instruct patient/ patient patient admitting representative about use of safety devices 8. Include patient/ patient patient admitting representative in decisions related to safety Outcome: [...] hygiene technique. 7. Identify and instruct patient/patient patient admitting representative in use of appropriate isolation precautions for identified infection/symptoms. 8. Provide and discuss with patient/patient patient admitting representative on educational MDRO sheet. 9. Encourage and monitor nutritional status daily and consult mail reader if indicated. 10. Implement neutropenic guidelines as needed. Outcome: Progressing Note: Evaluation of progress towards goal: Handwashing and standard precautions maintained. Patient remains free from infection through shift and has not shown any additional signs of infection at this time. Will continue to educate on infection prevention. Problem: Knowledge Deficit Goal: Patient/patient patient admitting representative demonstrates understanding of disease process, treatment [...] supplement as ordered 13. Collaborate with clinical mail reader 14. Include patient/ patient's patient admitting representative in decisions related to nutrition Outcome: [...] Score of =/> 25 or indicated by [facility] Assessment Goal: Patient should be free from fall Description: Interventions: 1. [place] to environment 2. Hourly rounds addressing the [...] non-skid footwear 11. Teach patient and patient patient admitting representative to maintain environment for safety and [...] (cane, walker) within reach 19. Request patient patient admitting representative bring adaptive equipment/mobility aids from home or obtain and provide as needed 20. Consult pharmacy regarding effects of med's affecting mobility, cognition, and alternatives 21. Obtain physician order for PT if risk factors associated with mobility are present 22. Obtain physician order for OT as appropriate 23. Utilize diversional activities 24. Educate patient and patient patient admitting representative how to maintain a safe environment during visitation times (notify nurse prior to leaving bedside) 25. Consider appropriateness of medical or non-front office medical assistant 26. Set up voiding schedule as appropriate [...] injury from restraints (Restraint for Interference with Automatic Operator) Description: INTERVENTIONS: 1. Determine that other, less [...] 09/23, alexis Discharge Plan remains: return to [facility]. [facility] is ready to accept patient at discharge. Patient will require a precert for SNF placement. CN will continue to follow and is available should any further needs arise. - RAMIREZ COTTO 09/22/24 9:50 AM Problem: Pain Goal: Patient goal is pain score less than 4, able to rest, and participant in treatment plan as appropriate Description: INTERVENTIONS: 1. Encourage patient or legal patient admitting representative to report early pain and ask [...] per policy 9. Teach patient or legal patient admitting representative interventions for comforting Outcome: Progressing Note: Evaluation of progress towards goal: Supervisor Spring Up assessed pt pain in the beginning and throughout shift. Pt stated a tolerable pain goal was zero. Supervisor Spring Up medicated pt pain per order. Will continue [...] at the bedside 7. Instruct patient/ patient patient admitting representative about use of safety devices 8. Include patient/ patient patient admitting representative in decisions related to safety Outcome: [...] hygiene technique. 7. Identify and instruct patient/patient patient admitting representative in use of appropriate isolation precautions for identified infection/symptoms. 8. Provide and discuss with patient/patient patient admitting representative on educational MDRO sheet. 9. Encourage and monitor nutritional status daily and consult mail reader if indicated. 10. Implement neutropenic guidelines as needed. Outcome: Progressing Note: Evaluation of progress towards goal: Supervisor Spring Up assessed pt risk for infection in the beginning and throughout shift. Pt remains afebrile. Will continue to monitor. Problem: Knowledge Deficit Goal: Patient/patient patient admitting representative demonstrates understanding of disease process, treatment plan, medications, and discharge instructions Description: INTERVENTIONS 1. Complete learning assessment and assess knowledge base 2. Provide teaching at level of understanding 3. Provide teaching via preferred learning method(s) Outcome: Progressing Note: Evaluation of progress towards goal: Supervisor Spring Up educated pt on admission disease, medications, treatment, [...] towards goal: Patient's skin integrity is maintained, marine underwriter assessed at beginning of shift and [...] supplement as ordered 13. Collaborate with clinical mail reader 14. Include patient/ patient's patient admitting representative in decisions related to nutrition Outcome: [...] goal: Patient's perineal skin integrity is maintained, marine underwriter assessed at beginning of shift and throughout, no changes noted, alexis cathter in place, fallon care provided. Problem: Moderate - High Risk Fall Score Description: García Fall Score of =/> 25 or indicated by [facility] Assessment Goal: Patient should be free from fall Description: Interventions: 1. [place] to environment 2. Hourly rounds addressing the [...] non-skid footwear 11. Teach patient and patient patient admitting representative to maintain environment for safety and [...] (cane, walker) within reach 19. Request patient patient admitting representative bring adaptive equipment/mobility aids from home or obtain and provide as needed 20. Consult pharmacy regarding effects of med's affecting mobility, cognition, and alternatives 21. Obtain physician order for PT if risk factors associated with mobility are present 22. Obtain physician order for OT as appropriate 23. Utilize diversional activities 24. Educate patient and patient patient admitting representative how to maintain a safe environment during visitation times (notify nurse prior to leaving bedside) 25. Consider appropriateness of medical or non-front office medical assistant 26. Set up voiding schedule as appropriate (every 2 hours) Outcome: Progressing Note: Evaluation of progress towards goal: Supervisor Spring Up assessed pt fall precautions in the beginning [...] injury from restraints (Restraint for Interference with Automatic Operator) Description: INTERVENTIONS: 1. Determine that other, less [...] injury from restrains, restrains remain in place, marine underwriter checks pulses, range of motion, offers hygiene, nutrition and repositioning every two hours. Goal: Free from restraint(s) (Restraint for Interference with Automatic Operator) Description: INTERVENTIONS: 1. ONCE/SHIFT or MINIMUM Q12H: [...] time, order remains vaild for current shift, marine underwriter performs necessary checks, plan of care ongoing. Problem: Pain Goal: Patient goal is pain score less than 4, able to rest, and participant in treatment plan as appropriate Description: INTERVENTIONS: 1. Encourage patient or legal patient admitting representative to report early pain and ask [...] per policy 9. Teach patient or legal patient admitting representative interventions for comforting Outcome: Progressing Note: [...] at the bedside 7. Instruct patient/ patient patient admitting representative about use of safety devices 8. Include patient/ patient patient admitting representative in decisions related to safety Outcome: [...] hygiene technique. 7. Identify and instruct patient/patient patient admitting representative in use of appropriate isolation precautions for identified infection/symptoms. 8. Provide and discuss with patient/patient patient admitting representative on educational MDRO sheet. 9. Encourage and monitor nutritional status daily and consult mail reader if indicated. 10. Implement neutropenic guidelines as needed. Outcome: Progressing Note: Evaluation of progress towards goal: Handwashing and standard precautions maintained. Patient remains free from infection through shift and has not shown any additional signs of infection at this time. Will continue to educate on infection prevention. Problem: Knowledge Deficit Goal: Patient/patient patient admitting representative demonstrates understanding of disease process, treatment [...] supplement as ordered 13. Collaborate with clinical mail reader 14. Include patient/ patient's patient admitting representative in decisions related to nutrition Outcome: [...] be free from fall Description: Interventions: 1. [place] to environment 2. Hourly rounds addressing the [...] non-skid footwear 11. Teach patient and patient patient admitting representative to maintain environment for safety and [...] (cane, walker) within reach 19. Request patient patient admitting representative bring adaptive equipment/mobility aids from home or obtain and provide as needed 20. Consult pharmacy regarding effects of med's affecting mobility, cognition, and alternatives 21. Obtain physician order for PT if risk factors associated with mobility are present 22. Obtain physician order for OT as appropriate 23. Utilize diversional activities 24. Educate patient and patient patient admitting representative how to maintain a safe environment during visitation times (notify nurse prior to leaving bedside) 25. Consider appropriateness of medical or non-front office medical assistant 26. Set up voiding schedule as appropriate [...] injury from restraints (Restraint for Interference with Automatic Operator) Description: INTERVENTIONS: 1. Determine that other, less [...] needs. DISCHARGE PLANNING NOTE Referral sent to. [facility] (P#: ; F#: ) Images from the original note were not included. DISCHARGE PLANNING NOTE Supervisor Spring [employer] left messages for children, introduced self, and [...] Medical History: Diagnosis Date MS (multiple sclerosis) ([facility] 2012 Prior to admission patient was a skilled patient at [facility] and family is interested in patient returning at discharge. Social work task RC to send referral to [facility]. Patient will require precert for placement. PCP: JACQUELINE LUNA Pharmacy:[facility] PCP and pharmacy confirmed with patient. JACQUELINE [...] Description: INTERVENTIONS: 1. Encourage patient or legal patient admitting representative to report early pain and ask [...] per policy 9. Teach patient or legal patient admitting representative interventions for comforting Outcome: Progressing Note: [...] hygiene technique. 7. Identify and instruct patient/patient patient admitting representative in use of appropriate isolation precautions for identified infection/symptoms. 8. Provide and discuss with patient/patient patient admitting representative on educational MDRO sheet. 9. Encourage and monitor nutritional status daily and consult mail reader if indicated. 10. Implement neutropenic guidelines as [...] injury from restraints (Restraint for Interference with Automatic Operator) Description: INTERVENTIONS: 1. Determine that other, less [...] to monitor. Problem: Knowledge Deficit Goal: Patient/patient patient admitting representative demonstrates understanding of disease process, treatment [...] Free from restraint(s) (Restraint for Interference with Automatic Operator) Description: INTERVENTIONS: 1. ONCE/SHIFT or MINIMUM Q12H: [...] Description: INTERVENTIONS: 1. Encourage patient or legal patient admitting representative to report early pain and ask [...] per policy 9. Teach patient or legal patient admitting representative interventions for comforting Outcome: Progressing Note: [...] at the bedside 7. Instruct patient/ patient patient admitting representative about use of safety devices 8. Include patient/ patient patient admitting representative in decisions related to safety Outcome: [...] hygiene technique. 7. Identify and instruct patient/patient patient admitting representative in use of appropriate isolation precautions for identified infection/symptoms. 8. Provide and discuss with patient/patient patient admitting representative on educational MDRO sheet. 9. Encourage and monitor nutritional status daily and consult mail reader if indicated. 10. Implement neutropenic guidelines as [...] injury from restraints (Restraint for Interference with Automatic Operator) Description: INTERVENTIONS: 1. Determine that other, less [...] has been communicated to KIRK Venegas with [facility]. Critical Care will sign off upon transfer or starting tomorrow 07, whichever comes first. Call the critical care DIANE if there are any further questions. Thank you. JACQUELINE Hughes APRN-CNP 09/20/24 1040 Problem: Pain Goal: Patient goal is pain score less than 4, able to rest, and participant in treatment plan as appropriate Description: INTERVENTIONS: 1. Encourage patient or legal patient admitting representative to report early pain and ask [...] per policy 9. Teach patient or legal patient admitting representative interventions for comforting Outcome: Progressing Note: [...] hygiene technique. 7. Identify and instruct patient/patient patient admitting representative in use of appropriate isolation precautions for identified infection/symptoms. 8. Provide and discuss with patient/patient patient admitting representative on educational MDRO sheet. 9. Encourage and monitor nutritional status daily and consult mail reader if indicated. 10. Implement neutropenic guidelines as needed. Outcome: Progressing Note: Evaluation of progress towards goal: Pt afebrile, vss, will continue to monitor. Problem: Knowledge Deficit Goal: Patient/patient patient admitting representative demonstrates understanding of disease process, treatment [...] injury from restraints (Restraint for Interference with Automatic Operator) Description: INTERVENTIONS: 1. Determine that other, less [...] keep monitoring Problem: Knowledge Deficit Goal: Patient/patient patient admitting representative demonstrates understanding of disease process, treatment [...] injury from restraints (Restraint for Interference with Automatic Operator) Description: INTERVENTIONS: 1. Determine that other, less [...] Free from restraint(s) (Restraint for Interference with Automatic Operator) Description: INTERVENTIONS: 1. ONCE/SHIFT or MINIMUM Q12H: [...] Description: INTERVENTIONS: 1. Encourage patient or legal patient admitting representative to report early pain and ask [...] per policy 9. Teach patient or legal patient admitting representative interventions for comforting Outcome: Progressing Note: [...] at the bedside 7. Instruct patient/ patient patient admitting representative about use of safety devices 8. Include patient/ patient patient admitting representative in decisions related to safety Outcome: [...] hygiene technique. 7. Identify and instruct patient/patient patient admitting representative in use of appropriate isolation precautions for identified infection/symptoms. 8. Provide and discuss with patient/patient patient admitting representative on educational MDRO sheet. 9. Encourage and monitor nutritional status daily and consult mail reader if indicated. 10. Implement neutropenic guidelines as [...] I will try again later. Enid Eaton Jr. MFrida. [facility] [phone] Problem: Pain Goal: Patient goal is pain score less than 4, able to rest, and participant in treatment plan as appropriate Description: INTERVENTIONS: 1. Encourage patient or legal patient admitting representative to report early pain and ask [...] per policy 9. Teach patient or legal patient admitting representative interventions for comforting 09/19/2024740 by MOE Dailey Outcome: Progressing Note: Evaluation of progress towards goal: Patient denies pain at this time; repositioned for comfort; PRN pain medication if needed. 09/19/2024 07 by MOE Dailey Outcome: Progressing Note: Evaluation [...] at the bedside 7. Instruct patient/ patient patient admitting representative about use of safety devices 8. Include patient/ patient patient admitting representative in decisions related to safety 09/19/2024740 [...] hygiene technique. 7. Identify and instruct patient/patient patient admitting representative in use of appropriate isolation precautions for identified infection/symptoms. 8. Provide and discuss with patient/patient patient admitting representative on educational MDRO sheet. 9. Encourage and monitor nutritional status daily and consult mail reader if indicated. 10. Implement neutropenic guidelines as needed. 09/19/2024740 by MOE Dailey Outcome: Progressing Note: Evaluation of progress towards goal: No active infections 09/19/2024738 by MOE Dailey Outcome: Progressing Note: Evaluation of progress towards goal: No active infections Problem: Knowledge Deficit Goal: Patient/patient patient admitting representative demonstrates understanding of disease process, treatment [...] supplement as ordered 13. Collaborate with clinical mail reader 14. Include patient/ patient's patient admitting representative in decisions related to nutrition 09/19/2024740 [...] and initiate plans and interventions as needed 09/19/2024 0741 by MOE Dailey Outcome: Progressing Note: Evaluation of progress towards goal: No new skin breakdown noted; turning patient every 2 hours per protocol 09/19/2024 0739 by MOE Dailey Outcome: Progressing Note: Evaluation of progress towards goal: No new skin breakdown noted; turning patient every 2 hours per protocol Problem: Moderate - High Risk Fall Score Description: García Fall Score of =/> 25 or [facility] Goal: Patient should be free from fall Description: Interventions: 1. [place] to environment 2. Hourly rounds addressing the [...] non-skid footwear 11. Teach patient and patient patient admitting representative to maintain environment for safety and [...] (cane, walker) within reach 19. Request patient patient admitting representative bring adaptive equipment/mobility aids from home or obtain and provide as needed 20. Consult pharmacy regarding effects of med's affecting mobility, cognition, and alternatives 21. Obtain physician order for PT if risk factors associated with mobility are present 22. Obtain physician order for OT as appropriate 23. Utilize diversional activities 24. Educate patient and patient patient admitting representative how to maintain a safe environment during visitation times (notify nurse prior to leaving bedside) 25. Consider appropriateness of medical or non-front office medical assistant 26. Set up voiding schedule as appropriate (every 2 hours) 09/19/2024 07 by MOE Dailey Outcome: Progressing Note: Evaluation of progress towards goal: Patient safety maintained; remains free from injury 09/19/2024 07 by MOE Dailey Outcome: Progressing Note: Evaluation [...] and sodium. Initiate appropriate interventions as ordered 09/19/2024740 by MOE Dailey Outcome: Progressing Note: Evaluation of progress towards goal: 09/19/2024738 by MOE Dailey Outcome: Progressing Note: Evaluation of progress towards goal: neuro status unchanged Problem: Knowledge Deficit Goal: Patient/patient patient admitting representative demonstrates understanding of disease process, treatment [...] Description: INTERVENTIONS: 1. Encourage patient or legal patient admitting representative to report early pain and ask [...] per policy 9. Teach patient or legal patient admitting representative interventions for comforting Outcome: Progressing Note: [...] at the bedside 7. Instruct patient/ patient patient admitting representative about use of safety devices 8. Include patient/ patient patient admitting representative in decisions related to safety Outcome: [...] hygiene technique. 7. Identify and instruct patient/patient patient admitting representative in use of appropriate isolation precautions for identified infection/symptoms. 8. Provide and discuss with patient/patient patient admitting representative on educational MDRO sheet. 9. Encourage and monitor nutritional status daily and consult mail reader if indicated. 10. Implement neutropenic guidelines as needed. Outcome: Progressing Note: Evaluation of progress towards goal: pt will show no signs or symptoms of infection prior to discharge. Any unneccessary invasive lines and tubes will be removed if not medically necessary to decrease infection risk. documented in this encounter [facility] 09-28-2024 Hospital course Narrative Images from the original note were not included. [facility] INTERNAL MEDICINE [facility] - GEN 9 ACUTE [address] [facility] [address] Hospital Medicine Discharge Summary Patient: Anupama Vasquez Date of : 1970 Room: A938/01 Encounter date: 09/28/24 Hospital Day: 11 DATE OF ADMISSION: 09/18/2024 DATE OF DISCHARGE:09/28/2024 DISCHARGE DIAGNOSES Principal Problem: Altered mental status, unspecified altered mental status type Active Problems: Generalized anxiety disorder with panic attacks Hyperlipidemia, acquired Multiple sclerosis ([facility]) LORENZO (obstructive sleep apnea) Primary hypertension Depression, unspecified Dysphagia, oropharyngeal phase [facility] Cardiology Urology Neurosurgery Nephrology PCP: FRED GRACIA, SAFETY INSTRUCTION POLICE OFFICER-HANDKERCHIEF FOLDER PROCEDURES Craniotomy HOSPITAL COURSE SUMMARY Patient's past medical history significant for MS, initially presented to [facility] from her rehab facility with complaints of altered mental status. Recently treated for rhabdomyolysis. 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 She was transferred to [facility] under Neurosurgery to the ICU. Right [...] EKG completed Echocardiogram showing preserved LVEF with smpj-wt-qkcllsqy mitral stenosis Buttock wound Previously following with [...] Andrey Hernández MD on 09/24/2024 1:31 PM Remy Moreno MD have personally reviewed the image(s) [...] Brain CT from September 18 outside facility [place] PROCEDURE: Multiplanar multisequence images performed through the [...] for surgical planning. I favor a primary SOFTWOOD FALLER neoplasm such as a glioblastoma or astrocytoma. [...] straws Adult nutrition supplements Follow up: FRED GRACIA, ELAN-HANDKERCHIEF FOLDER within 7-14 days. Neurosurgery, Urology Labs/Imaging/Pathology: Discharge [...] this patient. JACQUELINE AYALA 09/28/2024 5:25 PM [facility] Internal Medicine 7AM-7PM & 7PM-7AM: EpicChat or page through On-Call Finder. JACQUELINE Ayala 09/28/24 4203 Attending Addendum: I Dr Julio Fernandez, personally [...] plan as noted. documented in this encounter [facility] 09-27-2024 History of Present illness Narrative Images from the original note were not included. [facility] INTERNAL MEDICINE [facility] - GEN 9 ACUTE [address] [facility] [address] Hospital Medicine Progress Note Patient: Anupama Vasquez Date of : 1970 Room: [place]/ PCP: JACQUELINE LUNA Admission date: 09/18/2024 11:59 [...] EKG completed Echocardiogram showing preserved LVEF with mwfi-me-mchwdfod mitral stenosis Maintain cardiac monitoring Buttock wound [...] out of ICU today per Neurosurgery Skye Liberty Lara MD 09/27/2024 4:31 PM [facility] Internal Medicine 7AM-7PM & 7PM-7AM: EpicChat [...] Thank you, Arabella Burt RN Rapid Response: [facility] Images from the original note were not [...] Thank you, Russel Valverde RN Rapid Response: [facility] Images from the original note were not included. [facility] INTERNAL MEDICINE [facility] - GEN 9 ACUTE [address] [facility] [address] Hospital Medicine Progress Note Patient: Anupama Vasquez Date of : 1970 Room: [place] [address] PCP: JACQUELINE LUNA Admission date: 09/18/2024 11:59 [...] I volume urinary retention of >1.5 L BRNADON and bilateral mild hydro ureteral nephrosis secondary [...] EKG completed Echocardiogram showing preserved LVEF with ivgr-nr-lkkjchgp mitral stenosis Maintain cardiac monitoring Buttock wound [...] Neurosurgery Skye Lara MD 09/26/2024 5:01 PM [facility] Paulo [facility] Internal Medicine 7AM-7PM & 7PM-7AM: EpicChat or page through On-Call Finder. Images from the original note were not included. [facility] [address] [place] [address], [place] [address] * NEUROSURGERY DAILY PROGRESS NOTE DATE:09/26/2024 PATIENT'S [...] time. Please call with questions or concerns. Laura Gore APRN-HANDKERCHIEF FOLDER Neurosurgery [facility] Patient Touch 09/26/24 2:31 PM To find out which DIANE is on for the day please go to ON-Call Finder in eXelate or [email or web address] and use log in [email or web address] and search for PTH Neurosurgery Laura Gore APRN-RUBINA 09/26/24 1456 Images from the original note were not [...] Thank you, Arabella Burt RN Rapid Response: [facility] NUTRITION ADULT FOLLOW UP NUTRITION ASSESSMENT: Patient History: Brief Clinical Summary: Labs:past medical history significant for MS, who initially presented to [facility] from her rehab facility with complaints of altered mental status. Patient with BRANDON, acute urine retention, found to have right temporal mass. Biochemical Data, Medical Tests, and Procedures: 09/23 OR Craniotomy for tumor excision 09/24- VFSS- minced and moist MT2 liquids Results from last 3 days Lab Units 09/25/24 0415 09/24/24 0331 09/23/24 0701 SODIUM mmol/L 141 141 143 POTASSIUM [...] 09/24/24 0331 09/23/24 1649 09/23/24 0701 09/22/24 0614 09/21/24 0230 [...] 22 08/29/2024 Lab Results Component Value Date [id number] 09/19/2024 Lab Results Component Value Date [...] 4 mg 4 mg intravenous Q6H F[place] JACQUELINE Vazquez 4 mg at 09/25/24 0535 dextrose (GLUTOSE) [...] Nightly Jair Espinal MD 15 mg at 09/24/242203 niCARdipine (CARDENE) infusion 25 mg/50 mL in [...] Nightly Jair Espinal MD 2 tablet at 09/24/242203 sodium phosphate 20 mmol in sodium chloride 0.9 % 250 mL IVPB 20 mmol intravenous PRN JACQUELINE Hughes Or sodium phosphate 20 mmol in sodium chloride 0.9 % 100 mL IVPB 20 mmol intravenous PRN JACQUELINE Hughes Or sod phos di, mono-K phos mono (K-PHOS NEUTRAL) 250 mg tablet 2 tablet 2 tablet oral PRN Steffanie Lozano APRN-RUBINA sodium chloride 0.9 % infusion 3 mL/hr intra-arterial Continuous Jair Espinal MD 3 mL/hr at 09/25/24 0705 3 mL/hr at 09/25/24 0705 Nutrition Focused Physical Findings one stool today 1770ml UO yesterday Skin (per nursing flow sheets): Skin Color: [place] (09/25/24 08) Skin Temp: Warm; Dry (09/25/24 08) Wound (per nursing flow sheets): Wound 09/23/24 Incision Head Right-Site Assessment: Unable to assess (09/25/24 08) Wound 09/19/24 Skin Tear Thigh Anterior;Left-Site Assessment: Excoriated (09/25/24 0400) Wound 09/19/24 Pressure Injury Buttocks Left-Site Assessment: Clean; Dry; Intact (09/25/24 08) Gastrointestinal (per nursing flow sheets): Abdomen Assessment: Soft (09/25/24 08) Last BM Date: 09/25/24 (09/25/24 09) Passing Flatus: Yes (09/25/24 08) RUQ Bowel Sounds: Present (09/25/24 08) LUQ Bowel Sounds: Present (09/25/24 08) RLQ Bowel Sounds: Present (09/25/24 08) LLQ Bowel Sounds: Present (09/25/24 08) GI Symptoms: None (09/25/24 08) Edema (per nursing flow sheets): RLE Edema: +2 (09/25/24 08) LLE Edema: +2 (09/25/24 08) Intake/ Output Last 24 hrs: Intake/Output Summary [...] oz) Admit Weight: 119.4kg (Bed Scale, 09/19/24) [place] Body Weight: 61.4kg Weight Changes: 8.5kg loss/3 months (7%), stable inpatient +/- 2kg Current Body Mass Index: Body mass index is 41.7 kg/m . Comparative Standards: Estimated Energy Needs: 8289-0171 kcals daily. Method and weight used: 28-32 kcal/kg IBW Estimated Protein Needs: 74-123 grams daily. Method and weight used: 1.2-2g protein/kg IBW Estimated Fluid Needs: 9539-9222 ml daily. Method weight used: 28-32 ml/kg IBW Comments: general needs Malnutrition Status: Malnutrition Present: need more information NUTRITION DIAGNOSIS: Clinical Diagnosis: Swallowing difficulty (NC 1.1) Ongoing NUTRITION INTERVENTIONS: Meals & snacks: will add a magic cup to each tray, 290kcal and 9g protein per serving. GOAL(S): meet estimated protein/kcal needs NUTRITION MONITORING AND EVALUATION: po/supplement tolerance, weight/lab trends, POC Nikki Saez R.D,LNuha Clinical dietitian Patient Touch extension:[phone] Direct Dial phone number: [phone] 09/25/24 12:04 PM Images from the original note were not included. [facility] INTERNAL MEDICINE [facility] - GEN ICU [address] [facility] [address] Hospital Medicine Progress Note Patient: Anupama Vasquez Date of : 1970 Room: [place] [address] PCP: FRED GRACIA APRN-RUBINA Admission date: 09/18/2024 [...] Andrey Hernández MD on 09/24/2024 1:31 PM Remy Moreno MD have personally reviewed the image(s) [...] EKG completed Echocardiogram showing preserved LVEF with svjg-uy-amhmljfh mitral stenosis Maintain cardiac monitoring Buttock wound [...] per Neurosurgery JACQUELINE Hamilton 09/25/2024 11:[address] [facility] Internal Medicine 7AM-7PM & 7PM-7AM: EpicChat or page through On-Call Finder. JACQUELINE Hamilton 09/25/24 1743 JACQUELINE Hamilton 09/25/24 1744 I, Skye Lara MD, personally performed the face to face diagnostic evaluation on this patient. I have reviewed the DIANE's History, Exam, and MDM and agree with the assessment and plan as written. Images from the original note were not included. [facility] [address] [place] [address], [address] [place] [address] * NEUROSURGERY DAILY PROGRESS NOTE DATE:09/25/2024 PATIENT'S [...] Right temporal glioma s/p resection PLAN - KNUCKLE STRAP SEWER evaluated yesterday. VSS today. - Continue serial [...] Edward- [facility] Please contact via Embee Mobilet first then can utilize Patient touch/VoceraEdge if needed 09/25/24 7:08 AM To find out which DIANE is on for the day please go to [email or web address] and use log in [employer] and search for [facility] Neurosurgery (DIANE and Phone Number is listed) [...] -- 99 18 92 % -- -- 09/24/2420 -- -- 99 19 92 % -- [...] -- 92 23 95 % -- -- 09/24/2420 -- -- 94 17 95 % -- -- 09/24/2410 -- -- 89 24 95 % -- -- 09/24/24799 36.9 C (98.5 F) Axillary 88 24 95 % -- -- Intake/Output Summary (Last 24 hours) at 09/25/2024 0753 Last data filed at 09/25/2024 0705 Gross per 24 hour Intake 1076.19 ml Output 1770 ml Net -693.81 ml Results from last 7 days Lab Units 09/25/24 04109/24/24 03309/23/24 1649 09/23/24 0701 POTASSIUM mmol/L 4.0 4.3 [...] Results from last 7 days Lab Units 09/25/2441409/24/24 03309/23/24 0701 WBC [...] This note was completed using a voice visually impaired teacher system. Every effort was made to ensure accuracy. However, inadvertent computerized visually impaired teacher errors may be present. Images from the original note were not included. [facility] INTERNAL MEDICINE [facility] GEN ICU [address] [facility] [address] Hospital Medicine Progress Note Patient: Anupama Vasquez Date of : 1970 Room: [place] [address] PCP: FRED GRACIA, SAFETY INSTRUCTION POLICE OFFICER-HANDKERCHIEF FOLDER Admission date: 09/18/2024 11:59 PM Encounter date: [...] EKG completed Echocardiogram showing preserved LVEF with wson-ry-syneefgv mitral stenosis Maintain cardiac monitoring Buttock wound [...] neuro checks JACQUELINE Hamilton 09/24/2024 10:11 AM [facility] Internal Medicine 7AM-7PM & 7PM-7AM: EpicChat or page through On-Call Finder. JACQUELINE Hamilton 09/24/24 2522 I, Skye Lara MD, personally performed the [...] -- 93 19 97 % -- -- 09/23/241999 -- 36.4 C (97.6 F) -- 86 [...] per 24 hour Intake 2282.33 ml Output 2014 ml Net 267.33 ml Results from last [...] neurosurgery operative report reviewed. Impressions: 1. Nitish [place] Status post 09/23/2024 craniotomy excision right temporal [...] long run from follow up at the [facility] office. . Thank you very much. I appreciate being asked to help with this patient's care. Enid Eaton Jr., M.D. [facility] Genito-Urinary Surgeons [phone] Images from the original note were not included. [facility] [address] [place] [address], [address] [place] [address] * NEUROSURGERY DAILY PROGRESS NOTE DATE:09/24/2024 PATIENT'S [...] Edward- [facility] Neurosurgery Please contact via inTarvo first then can utilize Patient touch/VoceraEdge if needed 09/24/24 6:54 AM To find out which DIANE is on for the day please go to [email or web address] and use log in ProCall and search for PTH Neurosurgery (DIANE and Phone Number is listed) JACQUELINE Vazquez 09/24/241946 NUTRITION ADULT FOLLOW UP NUTRITION ASSESSMENT: Patient History: Brief Clinical Summary: past medical history significant for MS, who initially presented to [facility] from her rehab facility with complaints of altered mental status. Patient with BRANDON, acute urine retention, found to have right temporal mass Biochemical Data, Medical Tests, and Procedures: 09/23 OR Craniotomy planned for tumor excision Labs: Results from last 3 days Lab Units 09/23/24 0709/22/24 2127 09/22/24 1306 09/22/24 0614 09/21/24 1152 [...] Units 09/23/24 0701 09/22/24 0614 09/21/24 0230 09/20/24 0259 09/19/24 0412 09/19/24 [...] 3 days Lab Units 09/23/24 0701 09/22/24 0614 09/21/24 1152 09/21/24 0230 09/20/24 1114 MAGNESIUM mg/dL 1.8 1.9 -- 1.8 -- IONIZED MAGNESIUM mmol/L -- -- 0.61 -- 0.64 Results from last 3 days Lab Units 09/23/24 0701 09/22/24 0614 09/21/24 0230 PHOSPHORUS mg/dL 3.0 3.3 [...] 22 08/29/2024 Lab Results Component Value Date [id number] 517 09/19/2024 Lab Results Component Value Date [...] 100 mL IVPB 3,000 mg intravenous PRN SteffanieJACQUELINE Brand calcium gluconate 4,000 mg in sodium chloride 0.9 % 250 mL IVPB 4,000 mg intravenous PRN JACQUELINE Hughes calcium gluconate IVPB 2000 mg/100 mL (20 mg/mL premix) 2,000 mg intravenous PRN JACQUELINE Hughes dexAMETHasone (DECADRON) injection 4 mg 4 mg intravenous Q6H [facility] JACQUELINE Vazquez 4 mg at 09/23/24 0621 dextrose (GLUTOSE) 40 % gel 15 g 15 g oral PRN MARCELLE Spencer dextrose 2.5 % in water, 1,000 mL infusion 50-150 mL/hr intravenous Continuous JACQUELINE Hughes Stopped at 09/22/24 0747 dextrose 50 % [...] mg intravenous Q12H JACQUELINE Vazquez Stopped at 09/23/24 0637 magnesium sulfate IVPB [...] nasogastric Nightly JACQUELINE Hamilton 15 mg at 09/22/242123 polyethylene glycol (GLYCOLAX) packet 17 g 17 g oral Daily PRN MARCELLE Spencer potassium chloride (K-TAB,KLOR-CON) CR tablet 20-60 mEq 20-60 mEq oral PRN Steffanie Lozano, SAFETY INSTRUCTION POLICE OFFICER-HANDKERCHIEF FOLDER Or potassium chloride (KAYCIEL) 20 mEq/15 mL solution 20-60 mEq 20-60 mEq oral PRN Steffanie Lozano, SAFETY INSTRUCTION POLICE OFFICER-HANDKERCHIEF FOLDER Or potassium chloride IVPB 10 mEq/100 mL in water (0.1 mEq/mL premix) 10 mEq intravenous PRN Steffanie Lozano, SAFETY INSTRUCTION POLICE OFFICER-HANDKERCHIEF FOLDER sennosides-docusate sodium (SENOKOT-S) 8.6-50 mg 2 tablet 2 tablet oral Nightly MARCELLE Spencer sodium phosphate 20 mmol in sodium chloride 0.9 % 250 mL IVPB 20 mmol intravenous PRN Steffanie Lozano, SAFETY INSTRUCTION POLICE OFFICER-HANDKERCHIEF FOLDER Or sodium phosphate 20 mmol in sodium chloride 0.9 % 100 mL IVPB 20 mmol intravenous PRN Steffanie Lozano, SAFETY INSTRUCTION POLICE OFFICER-HANDKERCHIEF FOLDER Or sod phos di, mono-K phos mono (K-PHOS NEUTRAL) 250 mg tablet 2 tablet 2 tablet oral PRN Steffanie Lozano, SAFETY INSTRUCTION POLICE OFFICER-HANDKERCHIEF FOLDER Nutrition Focused Physical Findings +NG, mentation improving, BM 09/22 Skin (per nursing flow sheets): Skin Color: [place] (09/22/241939) Skin Temp: Dry; Cool (09/22/241939) Wound [...] oz) Admit Weight: 119.4kg (Bed Scale, 09/19/24) [place] Body Weight: 61.4kg Weight Changes: 8.5kg loss/3 months (7%), stable inpatient +/- 2kg Current Body Mass Index: Body mass index is 41.7 kg/m . Comparative Standards: Estimated Energy Needs: 1390-3987 kcals daily. Method and weight used: 28-32 kcal/kg IBW Estimated Protein Needs: 74-123 grams daily. Method and weight used: 1.2-2g protein/kg IBW Estimated Fluid Needs: 9914-6601 ml daily. Method weight used: 28-32 ml/kg [...] Parker RD, LD Clinical Dietitian Direct Line Images from the [...] 09/22/24 2127 09/22/24 1306 09/22/24 0614 09/21/24 2041 09/21/24 [...] Units 09/23/24 0701 09/22/24 0614 09/21/24 0230 WBC x10E9/L 15.1* 13.7* [...] retention Right temporal 4.1cm brain mass with lvurs-aj-wzmg 60 mm shift with surrounding edema from September of 2024 Multiple sclerosis Left carpal tunnel release Left shoulder arthroscopy KEYANNA PERRIN MD NEPHROLOGY [facility] ANY QUESTIONS FEEL FREE TO CALL: 1. OFFICE [phone] 2. ANSWERING SERVICE:[phone] YOU CAN CONTACT ME THROUGH eXelate SECURE CHAT DURING THE DAYTIME HOURS, IF [...] completed yesterday with preserved LVEF. Did have qjrf-qb-txjbpnks mitral stenosis with a mean gradient of [...] This note was completed using a voice visually impaired teacher system. Every effort was made to ensure accuracy. However, inadvertent computerized visually impaired teacher errors may be present. Images from the original note were not included. [facility] INTERNAL MEDICINE [facility] - GEN 9 ACUTE [address] [facility] [address] Hospital Medicine Progress Note Patient: Anupama Vasquez Date of : 1970 Room: [place] [address] PCP: FRED GRACIA APRN-HANDKERCHIEF FOLDER Admission date: 09/18/2024 11:59 PM Encounter date: [...] EKG completed Echocardiogram showing preserved LVEF with vdhc-qx-fwwsytya mitral stenosis Maintain cardiac monitoring Buttock wound [...] excision today, to ICU postoperatively under neurosurgery. Anjelica Venegas, ELAN-RUBINA 09/23/2024 10:00 AM [facility] Medicine 7AM-7PM & 7PM-7AM: EpicChat or page through On-Call Finder. JACQUELINE Hamilton 09/23/24 9744 I, Skye Lara MD, personally performed the face to face diagnostic evaluation on this patient. I have reviewed the DIANE's History, Exam, and MDM and agree with the assessment and plan as written. [facility] Department of Pharmacy Pharmacy-Physician Communication Anupama Vasquez ( ) qualifies for stress ulcer prophylaxis discontinuation per [employer] Policy. Famotidine IV has been selected for [...] Thank you, Kenya Pastrana RN Rapid Response: [facility] Images from the original note were not [...] retention Right temporal 4.1cm brain mass with axkxo-xf-lfru 60 mm shift with surrounding edema from September of 2024 Multiple sclerosis Left carpal tunnel release Left shoulder arthroscopy KEYANNA PERRIN MD NEPHROLOGY [facility] ANY QUESTIONS FEEL FREE TO CALL: 1. OFFICE [phone] 2. ANSWERING SERVICE:[phone] YOU CAN CONTACT ME THROUGH eXelate SECURE CHAT DURING THE DAYTIME HOURS, IF [...] from the original note were not included. [facility] INTERNAL MEDICINE [facility] - GEN 9 ACUTE [address] [facility] [id number] Hospital Medicine Progress Note Patient: Anupama Vasquez Date of : 1970 Room: [place] [address] PCP: FRED GRACIA APRN-RUBINA Admission date: 09/18/2024 [...] ICU postoperatively. JACQUELINE Hamilton 09/22/2024 10:40 AM [facility] Internal Medicine 7AM-7PM & 7PM-7AM: EpicChat or page through On-Call Finder. JACQUELINE Hamilton 09/22/24 1648 JACQUELINE Hamilton 09/22/24 1650 ISkye MD, personally performed the face to [...] Thank you, He Gutierrez RN Rapid Response: [facility] Urology Progress Note 3 Chief complaint: Urinary [...] Results from last 7 days Lab Units 09/22/2461325 0230 09/20/24 0259 WBC x10E9/L 13.7* 12.2* [...] 09/22/24 8:31 AM MARCELLE Staton 09/22/24 0831 I, ENID EATON JR, MD, personally performed [...] this patient's care. Enid Eaton Jr., M.D. [facility] Genito-Urinary Surgeons [phone] Images from the original note were not [...] Component Value Units Date/Time Blood culture #2 [[id number]] Collected: 09/20/24 0733 Specimen: Blood, Venous Updated: 09/22/24721 CULTURE RESULTS NO GROWTH 2 DAYS Narrative: Suboptimal volume of blood collected, Results may be affected. Blood culture #1 [[id number]] Collected: 09/20/24 0729 Specimen: Blood, Venous Updated: 09/22/24721 CULTURE RESULTS NO GROWTH 2 DAYS Narrative: Suboptimal volume of blood collected, Results may be affected. Blood culture [[id number]] (Abnormal) Collected: 09/19/24 0123 Specimen: Blood, Venous Updated: 09/21/24 1946 CULTURE RESULTS Staphylococcus, coagulase negative Staphylococcus, coagulase negative GRAM STAIN Gram positive cocci in clusters Narrative: Suboptimal volume of blood collected, Results may be affected. BLOOD CULTURE IDENTIFICATION PANEL [[id number]] (Abnormal) Collected: 09/19/24 0123 Specimen: Blood, Venous Updated: 09/19/242030 Staphylococcus epidermidis PCR Detected mecA/C gene PCR Detected (Methicillin Resistance) Blood culture [[id number]] Collected: 09/19/24 0026 Specimen: Blood, Venous Updated: [...] from the original note were not included. [facility] Neurosciences [address], [address] [place] [address] * NEUROSURGERY DAILY PROGRESS NOTE DATE:09/21/2024 PATIENT'S [...] day please go to ON-Call Finder in eXelate or [email or web address] and use log in [employer] and search for PTH Neurosurgery JACQUELINE Roth 09/21/24 5533 Images from the original note were not [...] Component Value Units Date/Time Blood culture #2 [[id number]] Collected: 09/20/24 0733 Specimen: Blood, Venous Updated: 09/21/24 1151 CULTURE RESULTS NO GROWTH 1 DAY Narrative: Suboptimal volume of blood collected, Results may be affected. Blood culture #1 [[id number]] Collected: 09/20/24 0729 Specimen: Blood, Venous Updated: 09/20/24 0729 Blood culture [[id number]] (Abnormal) Collected: 09/19/24 0123 Specimen: Blood, Venous Updated: 09/20/24 1833 CULTURE RESULTS Culture in progress GRAM STAIN Gram positive cocci in clusters Narrative: Suboptimal volume of blood collected, Results may be affected. BLOOD CULTURE IDENTIFICATION PANEL [[id number]] (Abnormal) Collected: 09/19/24 0123 Specimen: Blood, Venous Updated: 09/19/24 2031 Staphylococcus epidermidis PCR Detected mecA/C gene PCR Detected (Methicillin Resistance) Blood culture [[id number]] Collected: 09/19/24 0026 Specimen: Blood, Venous Updated: 09/21/24 0101 CULTURE RESULTS NO GROWTH 2 DAYS Concurrent Antibiotics: Anti-infectives (From admission, onward) Start Dose/Rate Route Frequency Ordered Stop 09/19/242100 vancomycin (VANCOCIN) IVPB Dosed by Levels intravenous Dosed by Levels 09/19/242100 Recent Vancomycin Serum Concentrations: Results from last 7 days Lab Units 09/21/24 1152 09/20/24 195 VANCOMYCIN ug/mL 16.0 10.0 Indication: bacteremia Goal [...] vancomycin random concentration has been ordered for 09/22 0500 Please see electronic record for orders Pharmacy [...] retention Right temporal 4.1cm brain mass with ffcwo-co-dquq 60 mm shift with surrounding edema from [...] 09/20/24195509/20/24 1114 09/20/24 0259 09/19/24195709/19/24 1223 09/19/24 0412 09/19/24 0026 SODIUM mmol/L [...] 09/21/24 0230 09/20/24 0259 09/19/24 0446 09/19/24 0026 WBC x10E9/L 12.2* 8.9 [...] For questions please call: Answering Service at [phone] Or Office at [phone] This note was created with the assistance [...] -- 81 23 97 % -- 09/20/24 2032 149/87 -- -- 77 18 97 % -- 09/20/241999 (!) 157/93 -- -- 77 17 98 [...] Results from last 7 days Lab Units 09/21/2422909/20/24 1956 09/20/24 1114 09/20/24 0259 09/19/24 1223 [...] Results from last 7 days Lab Units 09/21/2422909/20/24 0259 09/19/24 0446 WBC x10E9/L 12.2* 8.9 [...] this patient's care. Enid Eaton Jr., M.D. [facility] Genito-Urinary Surgeons [phone] Images from the original note were not [...] I/O last 3 completed shifts: In: 2730 [I.V.:9; IV Piggyback:781] Out: 5475 [Urine:5475] Calculated CrCl (TBW): 23.5 mL/min Culture Data: Microbiology Results Procedure Component Value Units Date/Time Blood culture #2 [[id number]] Collected: 09/20/24732 Specimen: Blood, Venous Updated: 09/20/24732 Blood culture #1 [[id number]] Collected: 09/20/24 07 Specimen: Blood, Venous Updated: 09/20/24 07 Blood culture [[id number]] (Abnormal) Collected: 09/19/24122 Specimen: Blood, Venous Updated: 09/20/24 1833 CULTURE RESULTS Culture in progress GRAM STAIN Gram positive cocci in clusters Narrative: Suboptimal volume of blood collected, Results may be affected. BLOOD CULTURE IDENTIFICATION PANEL [[id number]] (Abnormal) Collected: 09/19/24 012 Specimen: Blood, Venous Updated: 09/19/24 203 Staphylococcus epidermidis PCR Detected mecA/C gene PCR Detected (Methicillin Resistance) Blood culture [[id number]] Collected: 09/19/24 0026 Specimen: Blood, Venous Updated: [...] Edward- [facility] Please contact via inTarvo first then can utilize Patient touch/VoceraEdge if needed 09/20/24 2:22 PM To find out which DIANE is on for the day please go to [email or web address] and use log in [employer] and search for [facility] Neurosurgery (DIANE and Phone Number is listed) JACQUELINE Vazquez 09/20/24 1422 Images from the original note were not [...] Component Value Units Date/Time Blood culture #2 [[id number]] Collected: 09/20/24732 Specimen: Blood, Venous Updated: 09/20/24732 Blood culture #1 [[id number]] Collected: 09/20/24728 Specimen: Blood, Venous Updated: 09/20/24728 Blood culture [[id number]] (Abnormal) Collected: 09/19/24122 Specimen: Blood, Venous Updated: 09/19/242034 CULTURE RESULTS NO GROWTH <24 HRS GRAM STAIN Gram positive cocci in clusters Narrative: Suboptimal volume of blood collected, Results may be affected. BLOOD CULTURE IDENTIFICATION PANEL [[id number]] (Abnormal) Collected: 09/19/24 012 Specimen: Blood, Venous Updated: 09/19/242030 Staphylococcus epidermidis PCR Detected mecA/C gene PCR Detected (Methicillin Resistance) Blood culture [[id number]] Collected: 09/19/24 0026 Specimen: Blood, Venous Updated: 09/20/24 010 CULTURE RESULTS NO GROWTH 1 DAY Physical [...] Brain CT from September 18 outside facility [place] PROCEDURE: Multiplanar multisequence images performed through the [...] for surgical planning. I favor a primary [place] neoplasm such as a glioblastoma or astrocytoma. [...] follow with you. Enid Eaton Jr., M.D. [facility] Genito-Urinary Surgeons [phone] Images from the original note were not [...] from last 7 days Lab Units 09/20/24 02509/19/248 09/19/24 1223 09/19/24 0412 09/19/24 0026 SODIUM [...] retention Right temporal 4.1cm brain mass with yzvji-ch-ukeq 60 mm shift with surrounding edema from [...] For questions please call: Answering Service at [phone] Or Office at [phone] This note was created with the assistance of a speech-recognition program. Although the intention is to generate a document that actually reflects the content of the visit, no guarantees can be provided that every mistake has been identified and corrected by editing. Images from the original note were not included. [facility] Physicians Critical Care Progress Note Name: Anupama [...] of care discussed with Dr.case Steffanie Lozano SAFETY INSTRUCTION POLICE OFFICER HANDKERCHIEF FOLDER Acute Care Nurse Practitioner [facility] [...] Procedure Component Value Units Date/Time Blood culture [[id number]] (Abnormal) Collected: 09/19/24122 Specimen: Blood, Venous Updated: 09/19/242034 CULTURE RESULTS NO GROWTH <24 HRS GRAM STAIN Gram positive cocci in clusters Narrative: Suboptimal volume of blood collected, Results may be affected. BLOOD CULTURE IDENTIFICATION PANEL [[id number]] (Abnormal) Collected: 09/19/24122 Specimen: Blood, Venous Updated: 09/19/242030 Staphylococcus epidermidis PCR Detected mecA/C gene PCR Detected (Methicillin Resistance) Blood culture [[id number]] Collected: 09/19/2425 Specimen: Blood, Venous Updated: 09/20/24100 CULTURE RESULTS [...] infusion, 50-150 mL/hr, Last Rate: 75 mL/hr (09/20/24557) Steffanie Lozano APRN-HANDKERCHIEF FOLDER 09/20/24 0940 Cosigned by Mynor Watkins MD at 09/20/2024 [...] Procedure Component Value Units Date/Time Blood culture [[id number]] (Abnormal) Collected: 09/19/24122 Specimen: Blood, Venous Updated: 09/19/242034 CULTURE RESULTS NO GROWTH <24 HRS GRAM STAIN Gram positive cocci in clusters Narrative: Suboptimal volume of blood collected, Results may be affected. BLOOD CULTURE IDENTIFICATION PANEL [[id number]] (Abnormal) Collected: 09/19/24122 Specimen: Blood, Venous Updated: 09/19/242030 Staphylococcus epidermidis PCR Detected mecA/C gene PCR Detected (Methicillin Resistance) Blood culture [[id number]] Collected: 09/19/24 0026 Specimen: Blood, Venous Updated: 09/19/24 1301 CULTURE RESULTS NO GROWTH <24 HRS Concurrent [...] iv bid has been changed per the [facility]-approved renal dosing policy. Current CrCl = 6 mL/min. Accordingly, the dose of famotine 20mg iv bid was changed to famotidine 20mg iv q48hr. If there are any issues or concerns, please contact central pharmacy at [phone]. Thank you, Ayush Mina Jr. [facility]. [facility] encounter [facility] Hospital Discharge instructions Laura Gore APRN-HANDKERCHIEF FOLDER - 09/26/2024 2:57 PM EDT Neurosurgery Discharge [...] ointments to your incision Other Instructions: Call [facility] Neurosurgery with any questions, . documented [facility] this [facility] History and physical note HISTORY AND PHYSICAL INTERVAL NOTE: Anupama Vasquez 1970 [id number] H&P reviewed. The patient was examined and there are no changes to the H&P. Jair Espinal MD Source Note - Laura Gore APRN-HANDKERCHIEF FOLDER - 09/21/2024 3:31 PM EDT Images from the original note were not included. [facility] Neurosurgery Neurosciences [facility] [address] [place] [address], [address] [place] [address] * NEUROSURGERY DAILY PROGRESS NOTE DATE:09/21/2024 PATIENT'S [...] care per ICU team and consulting teams Laura Gore APRN-HANDKERCHIEF FOLDER Neurosurgery [facility] Patient Touch 09/21/24 6:51 AM To find out which DIANE is on for the day please go to ON-Call Finder in eXelate or [email or web address] and use log in [employer] and search for PTH Neurosurgery JACQUELINE Roth 09/21/24 7710 JACQUELINE Roth 09/23/24 1313 CRITICAL CARE HISTORY & PHYSICAL Name: Anupama Vasquez Date: 09/19/2024 Length of Stay: 0 day(s) Chief Complaint Patient presents with Altered Mental Status Evaluation of Abnormal Diagnostic Test HISTORY OF PRESENT ILLNESS: Anupama Vasquez is a 54 y.o. year-old female with a past medical history significant for MS, who initially presented to [facility] from her rehab facility with complaints of altered mental status. Per chart review patient was recently treated for rhabdomyolysis. Her initial workup was significant for hyperkalemia with a potassium of 5.5, BRANDON with creatinine of 15.68, BUN 133, bicarb 20 and leukocytosis with WBC 12.7, also as CT head was obtained and demonstrated a 4.1 cm right temporal brain mass with jityv-ug-qbqb 60 mm shift which includes surrounding edema [...] Medical History: Diagnosis Date MS (multiple sclerosis) (CMS-HCC) 2012 Past Surgical History: Procedure Laterality Date [...] Resource Strain: High Risk (06/04/2023) Received from [facility] Overall Financial Resource Strain (CARDIA) Difficulty of Paying Living Expenses: Very hard Food Insecurity: No Food Insecurity (09/16/2024) Hunger Screening Food Insecurity - Worry: Never True Food Insecurity - Inability: Never True Transportation Needs: No Transportation Needs (08/28/2024) PRAPARE - Transportation Lack of Transportation (Medical): No Lack of Transportation (Non-Medical): No Physical Activity: Sufficiently Active (06/04/2023) Received from [facility] Exercise Vital Sign Days of Exercise per Week: 4 days Minutes of Exercise per Session: 40 min Stress: No Stress Concern Present (06/04/2023) Received from [facility] [place] [facility] Occupational [employer] - Occupational Stress Questionnaire Feeling of Stress : Only a little Social Connections: Moderately Integrated (06/04/2023) Received from [facility] Social Connection and Isolation Panel [NHANES] Frequency of Communication with Friends and Family: Twice a week Frequency of Social Gatherings with Friends and Family: Once a week Attends Holiness Services: 1 to 4 times per year [...] C (99.1 F) Pulse: [98-107] 98 Resp: [04-14] 25 BP: (121-163)/(57-124) 150/94 SpO2: [90 %-96 [...] Procedure Component Value Units Date/Time Blood culture [[id number]] Collected: 09/19/24122 Specimen: Blood, Venous Updated: 09/19/24134 Blood culture [[id number]] Collected: 09/19/2425 Specimen: Blood, Venous Updated: 09/19/2444 Glucose Results from last 7 days Lab Units 09/19/2425 GLUCOSE mg/dL 103* No intake/output data recorded. famotidine, 20 mg, intravenous, Q48H [START ON 09/20/2024] heparin (porcine), 5,000 Units, subcutaneous, Q8H [place] sennosides-docusate sodium, 2 tablet, oral, Nightly dextrose 2.5 % in water, 1,000 mL infusion, 50-150 mL/hr, Last Rate: 100 mL/hr (09/19/24351) dextrose 5 % in water, 100 mL/hr sodium chloride 0.9 %, 10 mL/hr sodium chloride 0.9 %, 10 mL/hr sodium chloride 0.9 %, 10 mL/hr Microbiology Results Procedure Component Value Units Date/Time Blood culture [[id number]] Collected: 09/19/24122 Specimen: Blood, Venous Updated: 09/19/24134 Blood culture [[id number]] Collected: 09/19/2425 Specimen: Blood, Venous Updated: 09/19/2444 Lines/Drains CVC Triple Lumen 09/19/24 Right Internal Jugular (Active) Precautions Standard precautions;Hand hygiene;Gloves 09/19/24 040 Lumen 1 Proximal 09/19/24 0400 Lumen 1 Status Blood return noted;Saline locked;Flushed;Alcohol sponge cap changed;Connections checked/tightened 09/19/24 0400 Lumen 1 Needleless Cap Change Completed 09/19/24399 Lumen 1 Needleless Cap Change Due 09/23/24 09/19/24 0400 Lumen 2 Medial 09/19/24 0400 Lumen 2 Status Blood return noted;Saline locked;Flushed;Alcohol sponge cap changed;Connections checked/tightened 09/19/24 0400 Lumen 3 Distal 09/19/24 040 Lumen 3 Status Blood return noted;Flushed;Infusing;Alcohol sponge cap changed;Connections checked/tightened 09/19/24 0400 Site Assessment Clean;Dry;Intact 09/19/24 040 Dressing Type Occlusive;Transparent with CHG gel 09/19/24 040 Dressing Status Clean;Dry;Intact 09/19/24 0400 Dressing Intervention Dressing changed 09/19/24 040 Line Necessity Peripherally incompatible solution 09/19/24399 Line Necessity Reviewed With crit care 09/19/24 040 Patient Tolerance of Line Care Tolerated well 09/19/24399 Central Line Dressing Change Due (Non-Gauze) 09/26/24 09/19/24 040 Peripheral IV 09/19/24 Right Forearm (Active) Line Status Blood return noted;Saline locked;Flushed;Alcohol sponge cap changed;Connections checked/tightened 09/19/24 040 Site Assessment Clean;Intact;Dry 09/19/24 0400 Dressing Type Occlusive;Transparent 09/19/24 040 Dressing Status Clean;Dry;Intact 09/19/24 0400 Dressing Intervention Initial dressing 09/19/24399 Dressing Change Due (Non-Gauze) 09/26/24 09/19/24 040 Urinary Catheter 09/19/24 (Active) Catheter Status Patent 09/19/24 0007 Site Assessment Clean 09/19/24 000 Collection Container Leg bag 09/19/24 000 Securement Method Securing device (Describe) 09/19/24 000 Tamper Evident Seal Intact Yes 09/19/24 000 Urine Color Yellow/straw 09/19/24 0312 Urine Appearance Cloudy 09/19/24 0312 Output (mL) 1550 mL 09/19/24 0312 Patient Active Problem List Diagnosis Non-traumatic rhabdomyolysis Weakness Generalized anxiety disorder with panic attacks Hyperlipidemia, acquired Multiple sclerosis ([facility]) LORENZO (obstructive sleep apnea) Primary hypertension Primary [...] 4.1 cm right temporal brain mass with yuvuj-pf-zwuz 60 mm shift which includes surrounding edema 4.1 cm right temporal brain mass with 6 mm qwyoi-hm-cnju midline shift - closely monitor neuro status [...] d/w Dr. Jung, further orders to follow. JACQUELINE LEMUS Acute Care Nurse Practitioner [facility] Critical Care Please feel free to contact me via Patient Touch Critical Care Time: 39 minutes. Non-contiguous time with attending MD, excluding procedures. [] This patient, with a critical illness, requires constant monitoring and titration of care by a Critical Care Creative Strategist. Failure to do so may result in further organ system failure, imminent deterioration, or . JACQUELINE Lemus 09/19/24 0535 Cosigned by Sheila Jung MD at 09/19/2024 6:12 AM EDT documented in this encounter [facility] 09-23-2024 Note XR CHEST 1 VW History: Preoperative exam. History of asthma. Procedure: Chest AP portable upright Comparison: 10/06/2024 Findings: The heart and lungs show no acute findings, and the mediastinum and gema are grossly negative . No pneumothorax. Impression: No acute pulmonary process. Finalized by hSen Farooq MD on 09/23/2024 12:23 PM [facility] 09-22-2024 Consult note Associated Order (s): IP CONSULT TO CARDIOLOGY Images from the original note were not included. [facility] [address] [place] [address] HISTORY & PHYSICAL / CONSULT NOTE Anupama [...] with surrounding edema. Pt was transferred to [facility]. Pt still has altered mental status. From a cardiac standpoint she was having intermittent narrow complex tachycardia. Previous Medical History: Past Medical History: Diagnosis Date MS (multiple sclerosis) (CMS-HCC) 2012 Previous Surgical History: Past Surgical History: Procedure Laterality Date CARPAL TUNNEL RELEASE Left SHOULDER ARTHROSCOPY W/ ROTATOR CUFF REPAIR Left Allergies: No Known Allergies Hospital Meds: Current Facility-Administered Medications Medication Dose Route Frequency Provider Last Rate Last Admin acetaminophen (TYLENOL) tablet 650 mg 650 mg oral Q6H PRN MARCLELE Spencer Or acetaminophen (TYLENOL) 650 mg/20.3 mL [...] injection 4 mg 4 mg intravenous Q6H [facility] JACQUELINE Vazquez 4 mg at 09/22/24 0609 dextrose (GLUTOSE) 40 % gel 15 g 15 g oral PRN MARCELLE Spencer dextrose 2.5 % in water, 1,000 mL infusion 50-150 mL/hr intravenous Continuous JACQUELINE Hughes Stopped at 09/22/24 0747 dextrose 50 % in water (D50W) 50% solution 25 mL 25 mL intravenous PRN MARCELLE Spencer famotidine (PF) (PEPCID) injection 20 mg 20 mg intravenous Q48H MARCELLE Spencer 20 mg at 09/21/24 1507 glucagon HCL injection 1 mg 1 mg intramuscular PRN MARCELLE Spencer heparin (porcine) injection 5,000 Units 5,000 Units subcutaneous Q8H JACQUELINE Cortez 5,000 Units at 09/22/24 0608 hydrALAZINE (APRESOLINE) [...] by Levels intravenous Dosed by Levels JACQUELINE Lemus Home Meds: Prior to Admission medications Medication [...] This note was completed using a voice visually impaired teacher system. Every effort was made to ensure accuracy. However, inadvertent computerized visually impaired teacher errors may be present. Melo Gill PA-C 09/22/24 1138 Cosigned by Ned Machado MD at 09/22/2024 1:27 PM EDT Images from the original note were not included. [facility] ICU [address] [facility] [id number] Hospital Medicine Consultation Patient: Anupama Vasquez Date of : 1970 Room: 12/ PCP: JACQUELINE LUNA Admission date: 09/18/2024 11:59 PM Hospital Day: 4 Encounter date: 09/21/24 Hospital Day: 4 SUBJECTIVE Reason for Consult: Assume Primary on transfer from ICU Referring Physician/Team: Neurosurgery/Critical Care Anupama Vasquez is a 54 y.o. female with a past medical history including MS, hypertension, hyperlipidemia, obstructive sleep apnea, obesity who initially presented to [facility] via EMS 09/18/2024 from her extended care facility for altered mental status. Initial lab work at [place] showed hyperkalemia of 5.5 creatinine 15.68, BUN [...] 4.1 cm right temporal brain mass with lscvc-uf-tmsp shift and surrounding edema. Case was discussed with neurosurgery and patient was transferred ER to ER here to [facility] for further neurosurgery evaluation. She was [...] patient was treated under our service at [facility] in August for nontraumatic rhabdomyolysis. [...] for 30 days. 09/01/24 10/01/24 Tristen Lombardi APRN-RUBINA mirtazapine (REMERON CANDI-TAB) 15 mg disintegrating tablet Dissolve 1 tablet (15 mg total) on tongue nightly. Not In System Ref Prov Code Status: Full Code Past Medical History: Patient has a past medical history of MS (multiple sclerosis) ([facility]) (2012). Past Surgical History: Patient has a [...] 50-150 mL/hr, Last Rate: 50 mL/hr (09/21/24 6078) As Needed: acetaminophen OR acetaminophen bisacodyL calcium [...] Brain CT from September 18 outside facility [place] PROCEDURE: Multiplanar multisequence images performed through the [...] for surgical planning. I favor a primary [place] FALLER neoplasm such as a glioblastoma or astrocytoma. [...] for acute or suspicious pathology in the xqlcz-yk-eftt. The trachea and bronchi are patent. No [...] but anticipate will need placement at discharge. JACQUELINE Hamilton 09/21/2024 3:26 PM [facility] 7AM-7PM & 7PM-7AM: EpicChat or [...] (CMS-HCC) LORENZO (obstructive sleep apnea) Primary hypertension Primary [...] Medical History: Diagnosis Date MS (multiple sclerosis) ([facility]) 2012 Past Surgical History: Past Surgical History: Procedure Laterality Date CARPAL TUNNEL RELEASE Left SHOULDER ARTHROSCOPY W/ ROTATOR CUFF REPAIR Left Social/ Cognitive/ Economic: readmitted from rehab facility Brief Clinical Summary: past medical history significant for MS, who initially presented to [facility] from her rehab facility with complaints of altered mental status. Patient with BARNDON, acute urine retention, found to have right temporal mass Biochemical Data, Medical Tests, and Procedures: 09/23 OR Craniotomy planned for tumor excision Labs: Results from last 3 days Lab Units 09/21/24 02309/20/24 1956 09/20/24 1114 09/20/24 0259 09/19/24 1223 [...] Results from last 7 days Lab Units 09/21/2422909/20/24 0259 09/19/24 0412 09/19/24 0407 09/19/24 0026 BEDSIDE GLUCOSE mg/dL -- -- -- 110* -- GLUCOSE mg/dL 127* 149* 107* -- 103* Results from last 3 days Lab Units 09/21/2422925 0259 09/19/24 0446 WBC x10E9/L 12.2* 8.9 9.2 HEMOGLOBIN g/dL 11.0* 11.0* 11.4* HEMATOCRIT % 33.6* 33.5* 34.9* PLATELETS X10E9/L 183 190 189 MCV fL 83 82 82 Results from last 3 days Lab Units 09/21/24 0230 09/20/24 1114 09/20/24 0259 09/19/24 0412 MAGNESIUM mg/dL 1.8 -- 1.8 2.4 IONIZED MAGNESIUM mmol/L -- 0.64 -- -- Results from last 3 days Lab Units 09/21/24 0230 09/20/24 02509/19/24 0412 PHOSPHORUS mg/dL 2.7 3.5 5.8* CALCIUM, IONIZED [...] 22 08/29/2024 Lab Results Component Value Date [id number] 517 09/19/2024 Lab Results Component Value Date [...] injection 4 mg 4 mg intravenous Q6H JACQUELINE Ayala 4 mg at 09/21/24 0616 dextrose (GLUTOSE) 40 % gel 15 g 15 g oral PRN MARCELLE Spencer dextrose 2.5 % in water, 1,000 mL infusion 50-150 mL/hr intravenous Continuous JACQUELINE Hughes 50 mL/hr at 09/21/24 0426 50 mL/hr at 09/21/24 0426 dextrose 50 % in water (D50W) 50% solution 25 mL 25 mL intravenous PRN MARCELLE Spencer famotidine (PF) (PEPCID) injection 20 mg 20 mg intravenous Q48H MARCELLE Spencer 20 mg at 09/19/24 0851 glucagon HCL injection 1 mg 1 mg intramuscular PRN MARCELLE Spencer heparin (porcine) injection 5,000 Units 5,000 Units subcutaneous Q8H [place] MARCELLE Spencer 5,000 Units at 09/21/24 0616 hydrALAZINE (APRESOLINE) injection 10 mg 10 mg intravenous Q6H PRN MARCELLE Spencer 10 mg at 09/20/240 labetaloL (NORMODYNE,TRANDATE) injection 10 mg 10 mg intravenous Q4H PRN MARCELLE Spencer 10 mg at 09/20/242031 levETIRAcetam (KEPPRA) IVPB 500 mg/100 mL in iso-osmotic sodium chloride (5 mg/mL premix) 500 mg intravenous Q12H JACQUELINE Vazquez Stopped at 09/21/24 0634 magnesium sulfate IVPB [...] Skin (per nursing flow sheets): Skin Color: [place]; Pale (09/21/24 08) Skin Temp: Cool; Clammy (09/21/24 08) Wound (per nursing flow sheets): Wound 09/19/24 Skin Tear Thigh Anterior;Left-Site Assessment: Unable to assess (dressing on) (09/21/24 08) Wound 09/19/24 Pressure Injury Buttocks Left-Site Assessment: Unable to assess (dressing on) (09/21/24 08) Gastrointestinal (per nursing flow sheets): Abdomen Assessment: Soft; Rounded; Pann[place] ( Apron ); Obese (09/21/24 08) Last BM Date: (hu) (09/20/24 193) Passing Flatus: Yes (09/20/24 0330) RUQ Bowel Sounds: Present (09/21/24 08) LUQ Bowel Sounds: Present (09/21/24 08) RLQ Bowel Sounds: Present (09/21/24 08) LLQ Bowel Sounds: Present (09/21/24 08) Edema (per nursing flow sheets): RLE Edema: +2 (09/21/24 08) LLE Edema: +2 (09/21/24 08) Intake/ Output Last 24 hrs: Intake/Output Summary (Last 24 hours) at 09/21/2024 1032 Last data filed at 09/21/2024 0619 Gross per 24 hour Intake 2280.02 ml Output 1975 ml Net 305.02 ml Food/Nutrition Related History: Diet History: unable to obtain Nutrition Knowledge/Beliefs/Attitudes: not appropriate Allergies: No Known Allergies Diet/ Nutrition Order Review: Dietary Orders (From admission, onward) Start Ordered 09/19/24 0414 Adult diet NPO Diet effective now Question: Diet Type: Answer: NPO 09/19/24 0415 Diet Intakes: NPO start 09/18 Anthropometrics: Ht [...] Body Weight: see above for wt trends [place] Body Weight: 61.4kg Percent [place] Body Weight: 193% Weight Changes: 8.5kg loss/3 months (7%) Body Mass Index: Body mass index is 40.92 kg/m . BMI Category: Obese class 3 (> or = 40.00) Comparative Standards: Estimated Energy Needs: 3802-7999 kcals daily. Method and weight used: 28-32 kcal/kg IBW Estimated Protein Needs: 74-123 grams daily. Method and weight used: 1.2-2g protein/kg IBW Estimated Fluid Needs: 6170-3485 ml daily. Method weight used: 28-32 ml/kg [...] Parker RD, DEISY Clinical Dietitian Direct Line Associated Order(s): IP [...] 4.1 cm right temporal brain mass with mqtrz-au-ejvg shift 6 cm and surrounding edema. Urology [...] Medical History: Diagnosis Date MS (multiple sclerosis) ([facility]) 2012 Past Surgical History: Past Surgical History: [...] Resource Strain: High Risk (06/04/2023) Received from [facility] Overall Financial Resource Strain (CARDIA) Difficulty of Paying Living Expenses: Very hard Food Insecurity: No Food Insecurity (09/16/2024) Hunger Screening Food Insecurity - Worry: Never True Food Insecurity - Inability: Never True Transportation Needs: No Transportation Needs (08/28/2024) PRAPARE - Transportation Lack of Transportation (Medical): No Lack of Transportation (Non-Medical): No Physical Activity: Sufficiently Active (06/04/2023) Received from [facility] Exercise Vital Sign Days of Exercise per Week: 4 days Minutes of Exercise per Session: 40 min Stress: No Stress Concern Present (06/04/2023) Received from [facility] [place] [facility] - Occupational Stress Questionnaire Feeling of Stress : Only a little Social Connections: Moderately Integrated (06/04/2023) Received from [facility] Social Connection and Isolation Panel [NHANES] Frequency of Communication with Friends and Family: Twice a week Frequency of Social Gatherings with Friends and Family: Once a week Attends Holiness Services: 1 to 4 times per year [...] Procedure Component Value Units Date/Time Blood culture [[id number]] Collected: 09/19/24122 Specimen: Blood, Venous Updated: 09/19/24134 Blood culture [[id number]] Collected: 09/19/24 002 Specimen: Blood, Venous Updated: [...] CT to rule out stone. 3. Pending OR Saturday Neurosurgery. We will follow with you. Thank you very much. I appreciate being asked to help with this patient's care. Enid Eaton Jr., M.D. FACS [facility] [phone] Associated Order(s): Consult Neurosurgery Images from the original note were not included. [facility] [address] [place] [address], [address] [place] [address] * NEUROSURGERY CONSULT NOTE DATE:09/19/2024 PATIENT'S NAME: [...] injection 4 mg, 4 mg, intravenous, Q6H [facility], Chip Zarate, SAFETY INSTRUCTION POLICE OFFICER-HANDKERCHIEF FOLDER, 4 mg at 09/19/24 1326 dextrose (GLUTOSE) [...] premix), 500 mg, intravenous, Q12H, Chip Zarate, SAFETY INSTRUCTION POLICE OFFICER-HANDKERCHIEF FOLDER, Stopped at 09/19/24 0910 magnesium sulfate IVPB [...] Medical History: Diagnosis Date MS (multiple sclerosis) ([facility]) 2012 Past Surgical History: Procedure Laterality Date [...] [facility] Please contact via inTarvo first then can utilize Patient touch/VoceraEdge if needed 09/19/24 3:10 PM To find out which DIANE is on for the day please go to [email or web address] and use log in [employer] and search for PTH Neurosurgery (DIANE and [...] status. The patient apparently was seen at [facility] for altered mental status. She was found to have acute kidney injury with a creatinine 14.8. CT revealed a 4.1 cm right temporal mass with midline shift. The patient was found to have acute urine retention. Alexis catheter was placed. She was transferred to [facility] for further evaluation management and neurosurgical [...] retention Right temporal 4.1 brain mass with bslwt-ib-fefj 60 mm shift with surrounding edema from [...] Resource Strain: High Risk (06/04/2023) Received from [facility] Overall Financial Resource Strain (CARDIA) Difficulty of Paying Living Expenses: Very hard Food Insecurity: No Food Insecurity (09/16/2024) Hunger Screening Food Insecurity - Worry: Never True Food Insecurity - Inability: Never True Transportation Needs: No Transportation Needs (08/28/2024) PRAPARE - Transportation Lack of Transportation (Medical): No Lack of Transportation (Non-Medical): No Physical Activity: Sufficiently Active (06/04/2023) Received from [facility] Exercise Vital Sign Days of Exercise per Week: 4 days Minutes of Exercise per Session: 40 min Stress: No Stress Concern Present (06/04/2023) Received from [facility] [place] [facility] - Occupational Stress Questionnaire Feeling of Stress : Only a little Social Connections: Moderately Integrated (06/04/2023) Received from [facility] Social Connection and Isolation Panel [NHANES] Frequency of Communication with Friends and Family: Twice a week Frequency of Social Gatherings with Friends and Family: Once a week Attends Holiness Services: 1 to 4 times per year [...] call us with any questions at: Office: [phone] Office Answering Service: [phone] Miriam Church M.D. This note was created with the assistance of a speech-recognition program. Although the intention is to generate a document that actually reflects the content of the visit, no guarantees can be provided that every mistake has been identified and corrected by editing. documented in this encounter [facility] 09-19-2024 Emergency department Note Arrives via flight from [facility]. From a SNF, sent here for altered mental status and abnormal CT results, pt is alert but not oriented. Images from the original note were not included. [facility] - EMERGENCY DEPARTMENT Pt Name: Anupama Vasquez [...] consultation. Per records brought by EMS from [facility] ED patient was seen for urinary retention with GFR of 14.85, altered mental status, patient had a CT done which revealed 4.1 cm right temporal brain mass with yjhsn-ng-iwtf 60 mm shift which includes surrounding edema. Patient is protected airway is able to communicate. History provided by: Patient Past Medical History: Past Medical History: Diagnosis Date MS (multiple sclerosis) ([facility]) 2012 Past Surgical History: Past Surgical History: [...] Resource Strain: High Risk (06/04/2023) Received from [facility] Overall Financial Resource Strain (CARDIA) Difficulty of Paying Living Expenses: Very hard Food Insecurity: No Food Insecurity (09/16/2024) Hunger Screening Food Insecurity - Worry: Never True Food Insecurity - Inability: Never True Transportation Needs: No Transportation Needs (08/28/2024) PRAPARE - Transportation Lack of Transportation (Medical): No Lack of Transportation (Non-Medical): No Physical Activity: Sufficiently Active (06/04/2023) Received from [facility] Exercise Vital Sign Days of Exercise per Week: 4 days Minutes of Exercise per Session: 40 min Stress: No Stress Concern Present (06/04/2023) Received from [facility] [place] [facility] - Occupational Stress Questionnaire Feeling of Stress : Only a little Social Connections: Moderately Integrated (06/04/2023) Received from [facility] Social Connection and Isolation Panel [NHANES] Frequency of Communication with Friends and Family: Twice a week Frequency of Social Gatherings with Friends and Family: Once a week Attends Holiness Services: 1 to 4 times per year [...] 2024 0053 12:[address] Kylie sutherland, who reviewed case. At this time, they [...] are additional notes and findings. Additional Notes/Findings: Anupmaa Vasquez is a 54 y.o. F presenting [...] requested flight: Flight accepted, will be to [place] at 2300. 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 Wound Care Progress Note Patient: Anupama Vasquez Date of : 1970 Chief Complaint: Wound on buttocks New patient evaluation SUBJECTIVE/HPI: Anupama is a 54 y.o. 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 Past Medical History: Diagnosis Date MS (multiple sclerosis) ([facility]) 2012 Past Surgical History: Procedure Laterality Date [...] (Active) Wound Image 09/16/24 1323 Site Assessment Yellow;[place] 09/16/24 1323 [place]-wound Assessment Blanchable erythema;[place] 09/16/24 1323 Wound Length (cm) 1 cm 09/16/24 1323 Wound Width (cm) 1 cm 09/16/24 1323 Wound Surface Area (cm^2) 0.79 cm^2 09/16/24 1323 Wound Depth (cm) 0.1 cm 09/16/24 1323 Wound Volume (cm^3) 0.052 cm^3 09/16/24 1323 Drainage Description Serous;Yellow 09/16/24 1323 Drainage Amount Small 09/16/24 1323 Treatments Cleansed with;Soak with;Vashe/Hypochlorous Acid 09/16/24 1323 Wound Bed Granulation (%) 75% to 100% 09/16/24 1323 Wound Bed Slough (%) < 25% 09/16/24 1323 Assessment/Plan/Education: 1. Dermatitis associated with moisture 2. [...] and buttocks. Short term goal: medical compliance [facility] goal: wound closure Patient verbalize understanding of [...] the electronic or other health record - JACQUELINE GERMAIN 09/16/24 1:40 PM Adonay Castillo APRN, RUBINA, CWS, [employer] [facility]: [phone] JACQUELINE Germain 09/16/24 135 documented in this encounter [facility] 09-16-2024 Instructions Angela Chapa RN - 09/16/2024 [...] small Serous serous documented in this encounter [facility] 08-18-2024 History of Present illness Narrative Associated [...] Date Abnormal CBC 07/30/2023 Anxiety and depression ([facility]) Carpal tunnel syndrome 2002 Chronic diarrhea Chronic shoulder pain 05/01/2023 Class 3 severe obesity without serious comorbidity with body mass index (BMI) of 45.0 to 49.9 in adult ([facility]) 04/30/2023 Constipation Depression ([facility]) Hot flashes 07/30/2023 Hyperlipidemia, acquired ([facility]) 07/30/2023 Hypertension ([facility]) Knee pain, left anterior Major depression ([facility]) Morbid obesity with BMI of 40.0-44.9, adult ([facility]) Multiple sclerosis ([facility]) Night sweats 07/30/2023 LORENZO (obstructive sleep apnea) 07/30/2023 Pain of left middle finger Primary insomnia Rash Rectal burning Right knee pain, unspecified chronicity Sinusitis Stroke ([facility]) 07/30/2023 Urinary incontinence in female Vaginal discharge Vitamin D deficiency Past Surgical History: Procedure Laterality Date CARPAL TUNNEL RELEASE Right 2004 ECTOPIC SURGERY HYSTERECTOMY 1991 SHOULDER SURGERY Left 02/10/2024 Arthroscopy, RCR @ [facility] w/ MTP TUBAL LIGATION 1990 family [...] and sugary drinks. documented in this encounter [facility] 08-18-2024 Instructions Fred Gracia NP - 08/18/2024 9:20 AM EDT Cont escitalopram 10mg daily, as well as the aripriazole 10mg daily Increase the buspirone from 5mg , to 7.5mg and you can take this every 8 hour NEEDED for anxiety We will add the mirtazipine for sleep I will refer you to [facility] services in [place], they should call you documented in this encounter [facility] 08-03-2024 Telephone encounter Note Patient needs to reschedule appointment she missed today. She is [place] patient and was scheduled with Nasra. [facility]ra follow up visits are 30 minutes and new patients 40 minutes. This would be follow up visit. [facility] Work Phone: 08-03-2024 Miscellaneous Notes Patient needs to reschedule appointment she missed today. She is [place] patient and was scheduled with Nasra. [facility]ra follow up visits are 30 minutes and new patients 40 minutes. This would be follow up visit. documented in this encounter [facility] 06-17-2024 History of Present illness Narrative Associated [...] 10 MG tablet documented in this encounter [facility] 06-17-2024 Instructions Sherrie Boone NP - [...] NEAREST EMERGENCY DEPARTMENT. documented in this encounter [facility] 05-18-2024 History of Present illness Narrative Associated [...] Date Abnormal CBC 07/30/2023 Anxiety and depression ([facility]) Carpal tunnel syndrome 2002 Chronic diarrhea Chronic shoulder pain 05/01/2023 Class 3 severe obesity without serious comorbidity with body mass index (BMI) of 45.0 to 49.9 in adult ([facility]) 04/30/2023 Constipation Depression ([facility]) Hot flashes 07/30/2023 Hyperlipidemia, acquired ([facility]) 07/30/2023 Hypertension ([facility]) Knee pain, left anterior Major depression ([facility]) Morbid obesity with BMI of 40.0-44.9, adult ([facility]) Multiple sclerosis ([facility]) Night sweats 07/30/2023 LORENZO (obstructive sleep apnea) 07/30/2023 Pain of left middle finger Primary insomnia Rash Rectal burning Right knee pain, unspecified chronicity Sinusitis Stroke (CMS/HCC) 07/30/2023 Urinary incontinence in female Vaginal discharge Vitamin D deficiency Past Surgical History: Procedure Laterality Date CARPAL TUNNEL RELEASE Right 2005 ECTOPIC SURGERY HYSTERECTOMY 1991 SHOULDER SURGERY Left 02/10/2024 Arthroscopy, RCR @ [facility] w/ MTP TUBAL LIGATION 1990 family [...] (BMI) of 45.0 to 49.9 in adult ([facility]) Discussed with patient their BMI (actual, verses [...] takes meds sleeps 7 hours Multiple sclerosis ([facility]) Continue with neurology and treatment Encounter for screening mammogram for malignant neoplasm of breast Relevant Orders Bilateral screening mammogram Depression ([facility]) Husbands over the last few months, worsened [...] basis Generalized anxiety disorder with panic attacks ([facility]) Lexapro at 20mg anhedonia, and at 10mg [...] neurology and treatment documented in this encounter [facility] 05-18-2024 Instructions Fred Gracia NP - 05/18/2024 9:20 AM EST Keep escitalopram at 10mg, add ariprazole 5mg daily, add buspar 5mg twice a day for anxiety Follow up appt in 4 weeks Need mammogram-I will fax order to [facility] documented in this encounter [facility] 05-04-2024 Telephone encounter Note Per Aria Kumar, PT, she advises to notify Anupama and inform due to ongoing neck pain we'd be able to cx Eval that is scheduled tomorrow. Though note w/ the date range post shoulder we'll keep referral open and to contact if neck pain may reside and willing to partake PT for shoulder. She noted the recommendation. [facility] 05-04-2024 Miscellaneous Notes Per Aria Kumar, PT, [...] notify if requested. documented in this encounter [facility] 05-04-2024 Telephone encounter Note She called noting she has been having severe neck pain which results in 3 bulging discs in her neck; she has an appt w/ Oren Chinchilla 08/11/24. Due to severity of pain she feels PT addressing her shoulder would be useless beginning tomorrow. She cx; I noted I would inform PT and notify if requested. [facility] 04-27-2024 History of Present illness Narrative Associated [...] to verify the correct patient, procedure, equipment, telecommunications support and site/side marked as required. Patient [...] for breakthrough discomfort. documented in this encounter [facility] 04-27-2024 Instructions MARCELLE Perea - 04/27/2024 [...] for breakthrough discomfort. documented in this encounter [facility] 04-27-2024 Telephone encounter Note Please call to schedule pt a fu appt in the next month [place] [facility] 04-27-2024 Miscellaneous Notes Please call to schedule pt a fu appt in the next month [place] documented in this encounter [facility] 03-09-2024 Telephone encounter Note Patient stated [...] ass she's doing it and hung up. [facility] 03-09-2024 Miscellaneous Notes Patient stated she [...] and hung up. documented in this encounter [facility] 03-05-2024 History of Present illness Narrative Associated [...] hours as needed for shoulder surgical pain., [employer] #72, 167.7, cm, 02/05/24 11:09:00 EDT, [...] Date Abnormal CBC 07/30/2023 Anxiety and depression ([facility]) Carpal tunnel syndrome 2002 Chronic diarrhea Chronic shoulder pain 05/01/2023 Class 3 severe obesity without serious comorbidity with body mass index (BMI) of 45.0 to 49.9 in adult ([facility]) 04/30/2023 Constipation Depression ([facility]) Hot flashes 07/30/2023 Hyperlipidemia, acquired ([facility]) 07/30/2023 Hypertension ([facility]) Knee pain, left anterior Major depression ([facility]) Morbid obesity with BMI of 40.0-44.9, adult ([facility]) Multiple sclerosis ([facility]) Night sweats 07/30/2023 LORENZO (obstructive sleep apnea) 07/30/2023 Pain of left middle finger Primary insomnia Rash Rectal burning Right knee pain, unspecified chronicity Sinusitis Stroke ([facility]) 07/30/2023 Urinary incontinence in female Vaginal discharge Vitamin D deficiency Past Surgical History: Procedure Laterality Date CARPAL TUNNEL RELEASE Right 2004 ECTOPIC SURGERY HYSTERECTOMY 1991 SHOULDER SURGERY Left 02/10/2024 Arthroscopy, RCR @ [facility] w/ MTP TUBAL LIGATION 1990 family [...] Relevant Orders Flu vaccine, MDCK, quadrivalent, PF ([id number]) (Flucelvax single dose syringe) Candidiasis of skin D/t her arm being in a sling, she is requesting we use nystatin powder as cream and ointment is not something she can properly use at this time Relevant Medications nystatin (Mycostatin) 327091 UNIT/GM powder documented in this encounter [facility] 02-25-2024 History of Present illness Narrative Chief [...] for 2 more weeks. PT was sent [facility] repair protocol. F/U will be in 2 months, prn if doing well. All questions answered. documented in this encounter [facility] 02-14-2024 Telephone encounter Note MTP- PO Lt shoulder scope prob RCR [facility] 02/10/24 Patient called requesting a home health assistance, she states she has noone to help her I spoke with Naomi- with her type of surgery she will not qualify for any assistance. At this time we cannot order a home health assistance for her- Can you please call patient and inform her. [facility] 02-14-2024 Miscellaneous Notes MTP- PO Lt [...] and inform her. documented in this encounter [facility] 02-13-2024 Telephone encounter Note Was wanting to know if she could stop taking the percocet, pain isn't that bad and she was wanting to take her trazodone. [facility] 02-13-2024 Miscellaneous Notes Was wanting to know if she could stop taking the percocet, pain isn't that bad and she was wanting to take her trazodone. documented in this encounter [facility] 02-10-2024 Hospital Discharge instructions Patient Education 02/10/2024 15:39:49 Shoulder Cryocuff Patient Instructions - FT (CUSTOM) 02/10/2024 15:39:45 Post Op Patient Instructions - FT (CUSTOM) 02/06/2024 18:01:14 Brooks - After Your Shoulder Arthroscopy (Revised 06/17/14) (CUSTOM) [place], [place] [facility] AFTER YOUR SHOULDER ARTHROSCOPY [...] your appointment. Eliazar Brooks, DO [facility] [address] [place] [id number] Reviewed: 115 Follow Up Care 12/24/2023 11:37:06 With:YUE Santamaria Address: [address] [place] [address]- Business (1) When:02/25/2024 14:30:00 Comments:Keep scheduled appointmentCall for any problems. [facility] 02-10-2024 Note Progress Note-Physic nakul Patient: ANUPAMA VASQUEZ Age: 53 years Sex: Female : 1970 Associated Diagnoses: None Author: Mynor Vega MD Postoperative Information Postoperative disposition: Postoperative disposition: To PACU. Optimetrix number: Optimetrix number [id number]. Anesthetic utilized: General. Regional: Interscalene Block. Health [...] when meets criteria ( To home ). [facility] Comment on above: Result Comment: Elec tronically Signed By: Mynor Vega MD\.br\Date and Time Signed: 02/10/24 16:19 EDT 02-10-2024 Note Patient Education - Text [place], [place] [facility] AFTER YOUR SHOULDER ARTHROSCOPY [...] your appointment. Eliazar Brooks, DO [facility] [address] [place] [address] Reviewed: 06-03 [facility] 02-10-2024 Evaluation + Plan note Extrac jonah from: Title:ANES Post-operative Note---General Author: Mynor Vega MD. Date:02/10/24 Plan Transfer/Discharge: Transfer/Discharge Discharge when meets criteria ( To home ). Extracted from: Title:ANES Pre-operative Note 2022 Author:Mynor Young. Date:02/10/24 Plan Citizen Of [place] Society of Anesthesiologists (ASA) physical status classification: Class III. Anesthetic Preoperative Plan: Anesthesia General, and LMA. Regional Interscalene block. [facility] 09-23-2024 NoteProgress Note-Physician Patient: ANUPAMA VASQUEZ Age: [...] PRN Pain 4-7 for 5 day(s), Stop 02/15/24 14:59:00 EDT, Routine, Start 02/10/24 15:00:00 EDT acetaminophen-oxycodone 325 mg-5 mg Tab: 2 tab(s), Tab, Oral, q6hr PRN Pain 4-7 for 5 day(s), Stop 02/15/24 14:59:00 EDT, Routine, Start date 02/10/24 15:00:00 EDT cefazolin additive + Premix Sodium Chloride 0.9% 100 mL: 3 gram = 100 mL, Soln- IV, IV Piggyback, PREOP, Routine, Start date 02/10/24 11:30:00 EDT, 200 mL/hr, Infuse over 30 minute(s) morphine 2 mg/mL Inj: 2 mg = 1 mL, Injection, IV Push, q4hr PRN Pain 8-10 for 5 day(s), Stop 02/15/24 14:59:00 EDT, Routine, Start date 02/10/24 15:00:00 EDT morphine 2 mg/mL Inj: 2 mg = 1 mL, Injection, IV Push, q4hr PRN Pain 8-10 for 5 day(s), Stop 02/15/24 14:59:00 EDT, Routine, Start 02/10/24 15:00:00 EDT morphine 4 mg/mL Inj: 4 mg = 1 mL, Injection, IV Push, q4hr PRN Pain 8-10 for 5 day(s), Stop date 02/15/24 14:59:00 EDT, Routine, Start 02/10/24 15:00:00 EDT morphine 4 mg/mL Inj: 4 mg = 1 mL, Injection, IV Push, q4hr PRN Pain 8-10 for 5 day(s), Stop 02/15/24 14:59:00 EDT, Routine, Start date 02/10/24 15:00:00 EDT Prescriptions Prescribed Percocet 5 mg-325 mg oral tablet: See Instructions, 40 tab(s), Refill(s) 0, Take one to two oral every 4 hours as needed for shoulder surgical pain., [employer] #72, 167.7, cm, 02/05/24 11:09:00 EDT, [...] mL/hr PRN: (12) acetaminophen-oxyC (more content not included)...[facility] Comment on above:Result Comment: Electronically Signed By: Mina BENITEZ, Mynor Markham\.br\Date and Time Signed: 02/10/24 13:21 [id number] History of Present illness Narrative* Fred Gracia [...] neuro to [facility] * Fred Gracia NP - 02/03/2024 2:20 [...] Oral, 2 times daily, Take with food Dgctbwl-Tihqhwzefmw-Cvkrimerqo ([employer]) 160-9-4.8 MCG/ACT aerosol 2 puffs, [...] 49.9 in adult (CMS/HCC) 04/30/2023 Constipation Depression ([facility]) Hot flashes 07/30/2023 Hyperlipidemia, acquired ([facility]) 07/30/2023 Hypertension (CMS/[facility]) Knee pain, left anterior Major depression ([facility]/HCC) Morbid obesity with BMI of 40.0-44.9, adult ([facility]) Multiple sclerosis ([facility]) Night sweats 07/30/2023 LORENZO (obstructive sleep apnea) 07/30/2023 Pain of left middle finger Primary insomnia Rash Rectal burning Right knee pain, unspecified chronicity Sinusitis Stroke ([facility]/HCC) 07/30/2023 Urinary incontinence in female Vaginal discharge Vitamin D deficiency Past Surgical History: Procedure Laterality Date CARPAL TUNNEL RELEASE Right 2005 ECTOPIC SURGERY HYSTERECTOMY 1991 TUBAL LIGATION 1990 family history includes Aneurysm [...] (BMI) of 45.0 to 49.9 in adult ([facility]) Diverticulitis - Primary Fluids, atb, fu if not better If any fever, chills or worsening in symptoms go to ER Relevant Medications amoxicillin-clavulanate (Augmentin) 875-125 MG tablet documented in [facility] [id number] History of Present illness Narrative* Renuka Bui [...] Date Abnormal CBC 07/30/2023 Anxiety and depression ([facility]) Carpal tunnel syndrome 2002 Chronic diarrhea Chronic shoulder pain 05/01/2023 Class 3 severe obesity without serious comorbidity with body mass index (BMI) of 45.0 to 49.9 in adult ([facility]) 04/30/2023 Constipation Depression ([facility]) Hot flashes 07/30/2023 Hyperlipidemia, acquired ([facility]) 07/30/2023 Hypertension ([facility]) Knee pain, left anterior Major depression ([facility]) Morbid obesity with BMI of 40.0-44.9, adult ([facility]) Multiple sclerosis ([facility]) Night sweats 07/30/2023 LORENZO (obstructive sleep apnea) 07/30/2023 Pain of left middle finger Primary insomnia Rash Rectal burning Right knee pain, unspecified chronicity Sinusitis Stroke ([facility]) 07/30/2023 Urinary incontinence in female [...] 2 puffs, Inhalation, Every 6 hours PRN Toyfhez-Fglfetydtyx-Kqbzrithup ([employer]) 160-9-4.8 MCG/ACT aerosol 2 puffs, [...] shoulder. Eliazar Brooks D.O. documented in this encounterSaint [facility]'s [facility] [id number] Telephone encounter Note* Telephone Encounter - Michelle Lujan - 01/17/2024 12:20 PM EDT Called patient back to let her know that Jessica's preference is for the patient to remain at [facility] ifshe is to order the medication. Patient said she would establish care with local neurologist. [facility]08-30-2024 Miscellaneous Notes* Telephone Encounter - Michelle Lujan - 01/17/2024 12:20 PM EDT Called patient back to let her know that Jessica's preference is for the patient to remain at [facility] ifshe is to order the medication. Patient said she would establish care with local neurologist. * Telephone Encounter - Miri Soni - 01/14/2024 2:09 PM EDT Kriss Call Name of caller : Anupama Vasquez Relationship to patient: Self Return call phone number : [phone] Reason for call : Other : Brief description of concern :Please fax infusion orders to [phone] [facility]. [facility] Telephone encounter Note * Telephone Encounter - Miri Soni - 01/14/2024 2:09 PM EDT Kriss Call Name of caller : Anupama Vasquez Relationship to patient: Self Return call phone number : [phone] Reason for call : Other : Brief description of concern :Please fax infusion orders to [phone] [facility]. [facility] Work Phone: 1(411) 533-367808-01-2024 Telephone encounter Note* Telephone Encounter - She [...] to call if she changes her mind. [facility]08-01-2024 Miscellaneous Notes* Telephone Encounter - [...] she changes her mind. documented in this encounterRegional [facility] Center04-19-2024 NoteHNO ID: [id number] Author: LASHAUN VASQUEZ PA-C Service: ? Author Type: Physician Skating Rink Ice Maker Type: Progress Notes Filed: 09/06/2023 10:11 Note Text: SPINE SURGERY OUTPATIENT CONSULT This is a virtual visit using [employer] Video Visit. It required patient-provider interaction for the medical decision making as documented below. I have communicated my name and active licensure. The patient's identity and physical location were verified at the time of this visit. Either the patient or their legal patient admitting representative has been informed of the risks and benefits of -- and alternatives to -- treatment through a remote evaluation and consents to proceed with the evaluation remotely. SERVICE DATE: 09/06/2023 PCP: Valdez Acosta MD REFERRING PROVIDER: Jessica Clarke [phone] [facility] [id number] Consult requested for an opinion regarding the [...] in the past as well. Works with [employer] for her MS. Saw an outside orthopedic [...] Function Percentile 7 1 (more content not included)...[facility]04-19-2024 History of Present illness Narrative* Lashaun Vasquez PA-C - 09/06/2023 9:41 AM EDT SPINE SURGERY OUTPATIENT CONSULT This is a virtual visit using [employer] Video Visit. It required patient- provider interaction for the medical decision making as documented below. I have communicated my name and active licensure. The patient's identity and physical location wereverified at the time of this visit. Either the patient or their legal patient admitting representative has been informed of the risks and benefits of -- and alternatives to -- treatment through a remote evaluation andconsents to proceed with the evaluation remotely. SERVICE DATE: 09/06/2023 PCP: Valdez Acosta MD REFERRING PROVIDER: Jessica Clarke [phone] [facility] [id number] Consult requested for an opinion regarding the [...] in the past as well. Works with [employer] for her MS. Saw an outside orthopedic [...] DATA REVIEW [facility] records independently reviewed ASSESSMENT/PLAN (R24.984) Left arm weakness (primary encounter diagnosis) Virtual [...] TIME: 9:41 AM PAGER: documented in this encounterRegional Medical Center04-09-2024 NoteHNO ID: [id number] Author: ANISHA SANCHEZ PA-C Service: ? Author Type: Physician Skating Rink Ice Maker Type: Progress Notes Filed: 08/27/2023 11:37 Note [...] from ongoing conservative management. BMI 47.78 [facility]04-09-2024 History of Present illness Narrative* Anisha [...] Vasquez Are you being referred by a [facility] Spine Health Provider or Pain Management Provider at [facility]? No If answer is YES please [...] the MRI/CT/myelogram was completed: [facility] Address: [address] [place] [address] MRI/CT/myelogram viewable in Epic: Yes If not, please provide [phone] to fax in imaging reports for review. [...] where the surgery was completed: Additional Comments [phone] (Home Phone) documented in this encounterRegional Medical Center04-04-2024 NoteHNO ID: [id number] Author: ?, ?, ? Service: ? Author Type: ? Type: Progress Notes Filed: 08/27/2023 11:37 Note Text: Patient name: Anupama Vasquez Are you being referred by a Center for [facility] Health Provider or Pain Management Provider at [facility]? No If answer is YES please [...] the MRI/CT/myelogram was completed: [facility] Address: [address] [place] [address] MRI/CT/myelogram viewable in Epic: Yes If not, please provide [phone] to fax in imaging reports for review. [...] where the surgery was completed: Additional Comments [phone] (Home Phone)[facility]04-03-2024 Miscellaneous Notes* Telephone Encounter - Renuka Ellison - 08/21/2023 4:17 PM EDT rKiss Call Name of caller : Anupama Vasquez Relationship to patient: Self Return call phone number : [phone] Reason for call : Other : Brief [...] call to discuss further. documented in this encounterRegional Medical Center02-28-2024 Miscellaneous Notes* Telephone Encounter - Elizabeth Victoria RN - 07/17/2023 9:04 AM EST Called patient, no answer. Message left indicating [employer] message would be sent with reason for call and phone number to return call to office for any additional questions. Elizabeth Victoria RN * Telephone Encounter - Elizabeth Victoria RN - 07/16/2023 2:20 PM EST Called patient, no answer. Message left to return call to office when able. Elizabeth Victorai RN * Telephone Encounter - Jessica Clarke PA-C - 07/16/2023 1:08 PM EST She only needs brain MRI since c-spine MRI was completed locally outside [facility] in April. Orders already placed * Telephone Encounter - Anjelica Alba - 07/15/2023 3:18 PM EST Kriss Call Name of caller : Steffanie Relationship to patient: Caregiver Return call phone number : appointments Reason for call : Order for MRI needed for Brain and Cervical documented in this encounterRegional Medical Center02-21-2024 History of Present illness Narrative* Paris Toledo, - 07/10/2023 6:00 PM EST [facility] Initial Evaluation July 10, 2023 This appointment was requested by Jessica Clarke PA-C, for my medical opinion regarding the evaluation and management of the patient's Anupama Vasquez problems, and my final recommendations will be communicated to the requesting health care provider by way of the shared medical record for internal providers or letter via the [employer] for external providers. SUBJECTIVE: Anupama Vasquez a 53 year old presents [facility], accompanied by [...] (MS) PT several years ago (+) relief [facility] Alcohol Abuse - No Drug Abuse [...] No history of dysuria, frequency or incontinence CONTENT CURATOR: Negative for abnormal vaginal bleeding, abnormal vaginal [...] supervised home exercise program (HEP): No 5. Unit Support Representative: No Passive conservative therapy lasting 6 weeks [...] for allowing me to participate in Anupama F Lonz's care. I spent a total of 45 minutes on the date of the service which included preparing to see the patient, xmrt-qy-[id number] patient care, completing clinical documentation, performing a medically appropriate examination, counseling and educating the patient/family/caregiver, ordering medications, tests, or p rocedures, and communicating with other HCPs (not separately reported). Paris Toledo DO July 10, 2023 documented in this encounterRegional Medical Center02-21-2024 NoteHNO ID: [id number] Author: PARIS TOLEDO DO Service: ? Author Type: Physician Type: Progress Notes Filed: 07/12/2023 11:26 Note Text: [facility] Initial Evaluation July 10, 2023 This appointment was requested by Jessica Clarke PA-C, for my medical opinion regarding the evaluation and management of the patient's Anupama Vasquez problems, and my final recommendations will be communicated to the requesting health care provider by way of the shared medical record for internal providers or letter via the [employer] for external providers. SUBJECTIVE: Anupama Vasquez a 53 year old presents to [facility], accompanied by [...] (MS) PT several years ago (+) relief [facility] Alcohol Abuse - No Drug Abuse [...] No history of dysuria, frequency or incontinence CONTENT CURATOR: Negative for abnormal vaginal bleeding, abnormal vaginal discharge MUSCULOSKELETAL: Negative for joint pain or swelling, back pain or muscle pain. NEUROLOGIC:Negative for focal numbness or weakness, headaches and dizziness or syncope. SKIN:Negative for lesions, rash, and itching. PSYCHIATRIC: Negative for sleep disturbance, mood disorder and recent psychosocial stressors. [place] (more content not included)...[facility]02-07-2024 History of Present illness Narrative* Shaikh [...] 12:24 PM ESTAssociated Problem(s): COPD with exacerbation ([facility]) Patient reports cough, SOB, wheezing, [...] 8 weeks (around 08/21/2023). documented in this encounterSaint [facility]'s Saint [facility] [id number] NoteHNO ID: [id number] Author: She Brand RN Service: ? Author [...] ; pt states she had her tubes tied.[facility]12-14-2023 History of Present illness Narrative* Jessica Clarke PA-C - 05/02/2023 7:30 AM EST Images from the original note were not included. [facility] MULTIPLE SCLEROSIS FOLLOWUP/ESTABLISHED PATIENT VIRTUAL VISIT PRINCIPAL [...] visit. Either the patient or their legal patient admitting representative has been informed of the risks [...] Row Office Visit from 03/22/[address] [facility] Office Visit from 11/14/2021 in [facility] from 09/15/[address] [facility] Upper Extremity Domain T Score 32.58 [...] Row Office Visit from 03/22/[address] [facility] Office Visit from 11/14/2021 in [facility] from 09/15/[address] [facility] Sleep Domain T Score 61.04 -- [...] which included preparing to see the patient, cfqz-[id number] patient care, completing clinical documentation, obtaining and/or reviewing separately obtained history, counseling and educating the patient/family/caregiver, ordering medications, manuel ts, or procedures, communicating with other HCPs (not separately reported), and communicating results to the patient/family/caregiver. The patient was discussed with Dr. Escobar prior to appointment. Jessica Clarke PA-C documented in this encounterRegional Medical Center12-14-2023 NoteHNO ID: [id number] Author: Jessica Clarke PA-C Service: ? Author Type: Physician Skating Rink Ice Maker Type: Progress Notes Filed: 05/02/2023 5:39 PM Note Text: [facility] MULTIPLE SCLEROSIS FOLLOWUP/ESTABLISHED PATIENT VIRTUAL VISIT PRINCIPAL [...] visit. Either the patient or their legal patient admitting representative has been informed of the risks [...] Row Office Visit from 03/22/[address] [facility] Office Visit from 11/14/[address] [facility] Distance Health from 09/15/[address] [facility] Upper Extremity Domain T Score 32.58 [...] Row Office Visit from 03/22/[address] [facility] Office Visit from 11/14/[address] [facility] Distance Health from 09/15/[address] [facility] Sleep Domain T Score 61.04 -- [...] spent a total of (more content not included)...[facility] 04-18-2022 Evaluation note* Encounter Date Diagnosis Assessment Notes Treatment Notes Treatment Clinical Notes Mar, Change in bowel function (ICD-10 - R19.4) CONTINUE METAMUCIL DIRECTED RTO 1 YR [employer] Other 11-11-2022 Miscellaneous Notes* Telephone Encounter - Lily Monique - 03/30/2022 2:06 PM EST Patient is calling today and would like to inform that she has a new PCP. Would like to ask that Dr Acosta be removed. She now sees a Dr Fred Arteaga in [place]. Any questions please call patient at [phone] documented in this encounterRegional Medical Center11-03-2022 History of Present illness Narrative* Jessica Clarke PA-C - 03/22/2022 12:40 PM EDT Images from the original note were not included. [facility] FOR MULTIPLE SCLEROSIS FOLLOWUP/ESTABLISHED PATIENT VISIT PRINCIPAL [...] ago and hands locked up when at [employer] (Mar 03) Trying to go for walks (uses cane) Has some new friends, which has been helpful Still gets frustrated with limitations SUBJECTIVE & REVIEW OF SYSTEMS: Neuro-QoL Functions (higher=better functioning) Flowsheet [facility] Office Visit from 03/22/[address] [facility] Office Visit from 11/14/2021 in [facility] from 09/15/[address] [facility] Upper Extremity Domain T Score 32.58 -- 34 Lower Extremity Domain T Score 36.57 -- 37 Cognitive Function Domain T Score 38.32 39 41 Positive Affect Well Being T Score -- -- -- Ability To Participate In Social Roles T Score 29.36 39 43 Satisfaction With Social Roles T Score 40.46 -- 36 Neuro-QoL Symptoms (higher=worse symptoms) Flowsheet [facility] Office Visit from 03/22/[address] [facility] Office Visit from 11/14/2021 in [facility] from 09/15/[address] [facility] Sleep Domain T Score 61.04 -- 64 Fatigue Domain T Score 58.38 -- 65 Anxiety Domain T Score 58.73 -- 61 Depression Domain T Score 60.06 58 60 Stigma Domain T Score 58.45 -- 57 Emotional Behavior Dyscontrol T Score -- -- -- *NeuroQoL is a multi-domain patient-reported quality of life questionnaire. PHQ-9 Flowsheet [facility] from 09/15/[address] [facility] Office Visit from 11/01/2020 in [facility] PHQ-9 Score 11 16 *PHQ-9 is a questionnaire for depressive symptoms, with scores 0-4 indicating none, 5-9 mild, 10-14moderate, 15-19 moderately severe, and 20-27 severe symptoms. PROMIS-10 [facility] OT/PT/Speech Visit from 01/16/2022 in [facility] Occupational Therapy [facility] from 09/15/[address] [facility] Global Physical Health T Score 32.4 [...] 5 Biceps 5 5 Triceps 5 5 Lease Out Man 5 5 Dorsal interossei 5 5 Lower [...] Stretching Follow-up: In 6 months at [facility] I spent a total of 30 minutes on the date of the service which included preparing to see the patient, idzv-ik-srac patient care, completing clinical documentation, obtaining and/or reviewing separately obtained history, performing a medically appropriate examination, counseling and educating the pat ient/family/caregiver, ordering medications, tests, or procedures, and communicating results to thepatient/family/caregiver. Jessica Clarke PA-C The chart was reviewed for possible participation in the following studies:None documented in this encounterRegional Medical Center10-18-2022 History of Present illness Narrative* [...] Care Gap or Scheduling/Wellness visits Payer: Payor: [facility] MEDICAID / Plan: [facility] COMMUNITY PLAN [place] OF [place] [...] 06, 2022 4:06 PM documented in this encounterRegional Medical Center09-26-2022 Miscellaneous Notes* Telephone Encounter - Jaycee Haley - 02/12/2022 9:08 AM EDT Called pt LVM to see about setting up pt and psycology. documented in this encounterRegional Medical Center08-30-2022 History of Present illness Narrative* NASIR Smalls - 01/16/2022 1:17 PM EDT [facility] NEURO FUNCTIONAL CAPACITY EVALUATION GENERAL RECORD INFORMATION CURRENT VISIT NUMBER: ONSET:09/15/2021 1st:01/16/2022ert Date:01/16/2022 THERAPISTS NAME: NASIR Smalls INSURANCE TYPE: Payor: [facility] MEDICAID / Plan: [facility] COMMUNITY PLAN MEDICAID / Product Type: Medicaid / REFERRING PROVIDER: Jesscia Clarke PA-C PLAN OF CARE: 01/16/2022 Patient [...] 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; 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; 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, [...] flexion 5/5 5/5 Wrist extension 5/5 5/5 Lease Out Man strength (Alexis position 2) 70 lbs 53 [...] from floor: 4 = able to pickle cutter object safely and easily Looking over shoulder: [...] - alternating feet, must use rail Total: Scores less than or equal to 19 [...] test: Right 24.13, 23.06 seconds; CV = 0.93480% Left 22.41, 26.54 seconds; CV = 0.72655% Norms for a 51 year old female [...] 60 35 YES Valid YES Valid Right psychiatry teacher best result: 80 lbs; percentile rank = 75 % Left psychiatry teacher best result: 78 lbs; percentile rank = 90 % Tremors?: No Hand Lease Out Man Norms: MALE Percentile - lbs. 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 X Agree Disagree 2. In a [...] Agree Disagree Physical factors that impair Anupama Vasquez's ability to work include: 1. Gait [...] this exam. Based on the PHQ-9 Anupama Vasqeuz has a moderate level of depression. Based [...] 8 units: 113-127 mins Physical Performance Test (48862) Skilled Intervention: Neurologically-based functional capacity evaluation specific to the diagnosisof Multiple Sclerosis. Proper administration and selection of physical performance test based on clinical presentation, deficits, and needs. SUN Smalls/Verena documented in this encounterRegional Medical Center07-27-2022 Evaluation note* Encounter Date Diagnosis Assessment Notes Treatment Notes Treatment Clinical Notes Nov, Change in bowel function (ICD-10 - R19.8) ENCOURAGED METAMUCIL CAPSULES DAILY. Nov, Tubular adenoma (ICD-10 - D36.9) WILL REPEAT COLON IN 5 YEARS Nov, Diverticulosis (ICD-10 - K57.90) Nov, Hemorrhoids (ICD-10 - K64.9) [employer] Other 06-28-2022 History of Present illness Narrative* Sarthak Escobar MD, PhD - 11/14/2021 8:31 AM EDT Images from the original note were not included. [facility]ULT[facility]LE [facility]OS[facility] FOLLOWUP/ESTABLISHED PATIENT VISIT PRINCIPAL [...] (higher=better functioning) Office Visit from 11/14/[address] [facility] Distance Health from 09/15/[address] [facility] OfficeVisit from 11/01/[address] [facility] Upper Extremity Domain T Score 34 30 Lower Extremity Domain T Score 37 40 Cognitive Function Domain T Score 39 41 36 Positive Affect Well Being T Score Ability To Participate In Social Roles T Score 39 43 46 Satisfaction With Social Roles T Score 36 39 Neuro-QoL Symptoms (higher=worse symptoms) Office Visit from 11/14/[address] [facility] Distance Health from 09/15/[address] [facility] OfficeVisit from 11/01/[address] [facility] Sleep Domain T Score 64 64 Fatigue Domain T Score 65 69 Anxiety Domain T Score 61 65 Depression Domain T Score 58 60 66 Stigma Domain T Score 57 63 Emotional Behavior Dyscontrol T Score *NeuroQoL is a multi-domain patient-reported quality of life questionnaire. PHQ-9 Distance Health from 09/15/[address] [facility] Office Visit from 11/01/[address] [facility] PHQ-9 Score 11 16 *PHQ-9 is a questionnaire for depressive symptoms, with scores 0-4 indicating none, 5-9 mild, 10-14moderate, 15-19 moderately severe, and 20-27 severe symptoms. PROMIS-10 [facility] from 09/15/[address] [facility] Office Visit from 11/01/[address] [facility] Global Physical Health T Score 32.4 [...] 5 Biceps 5 5 Triceps 5 5 Lease Out Man 5 5 Dorsal interossei 5 5 Lower [...] Lymph 1.00 - 4.00 k/uL 0.60 (L) Churchill% % 12.0 Abs Churchill <0.87 k/uL 0.74 Eosin% % 2.4 Abs [...] 7T brain MRI in 3 months at [place]. Will hold next infusion until reviewing MRI. [...] and Stretching Follow-up: In 3 months at [place] [address] [facility] I spent a total of 40 minutes on the date of the service which included preparing to see the patient, [id number] patient care, completing clinical documentation, obtaining and/or reviewing separately obtained history, performing a medically appropriate examination, counseling and educating the pat ient/family/caregiver, ordering medications, tests, or procedures, independently interpreting results (not separately reported) and communicating results to the patient/family/caregiver. The patient was discussed with Dr. Escobar. Jessica Clarke PA-C [facility] STAFF PHYSICIAN NOTE OF [...] Sarthak Escobar MD, PhD Associate Staff Neurologist [facility] for Multiple Sclerosis documented in this encounterRegional Medical Center06-28-2022 History of Present illness Narrative* RT [place](R) [...] 2021 TIME: 7:43 AM documented in this encounterRegional Medical Center04-29-2022 History of Present illness Narrative* Jessica Clarke PA-C - 09/15/2021 11:19 AM EDT Images from the original note were not included. [facility] FOR MULTIPLE SCLEROSIS FOLLOWUP/ESTABLISHED PATIENT VIRTUAL VISIT [...] lbs. No energy - mood worse Fred Gracia is new WASTE/MATERIALS EXCHANGE SPECIALIST PCP - changed anxiety and depression meds [...] neurologist locally. Asking about switching infusions to [facility] REVIEW OF SYSTEMS: Mood: PHQ9 responses reviewed and appear below Bladder: colonoscopy recently Pain:reviewed on nursing intake documentation Neuro-QoL Functions (higher=better functioning) Appointment from 09/15/[address] [facility] Office Visit from 11/01/[address] [facility] Office Visit from 07/31/[address] [facility] Upper Extremity Domain T Score 34 30 41.73 Lower Extremity Domain T Score 37 40 41.61 Cognitive Function Domain T Score 41 36 45 Positive Affect Well Being T Score 40.79 Ability To Participate In Social Roles T Score 43 46 39.92 Satisfaction With Social Roles T Score 36 39 43.36 Neuro-QoL Symptoms (higher=worse symptoms) Appointment from 09/15/[address] [facility] Office Visit from 11/01/[address] [facility] Office Visit from 07/31/[address] [facility] Sleep Domain T Score 64 64 [...] available 4. Consult OT - [facility] at [place] 5. Continue with PCP as planned I spent a total of 20 minutes on the date of the service which included preparing to see the patient, exto-cr-zbrb patient care, completing clinical documentation, obtaining and/or reviewing separately obtained history, counseling and educating the patient/family/caregiver, ordering medications, manuel ts, or procedures and communicating results to the patient/family/caregiver. Jessica Clarke PA-C documented in this encounterRegional Medical Center04-19-2022 Procedure [facility]03-28-2022 Evaluation note* Encounter Date Diagnosis Assessment Notes Treatment Notes Treatment Clinical Notes Jul, Constipation (ICD-10 - K59.00) Jul, Rectal bleeding (ICD-10 - K62.5) Jul, Rectal pain (ICD-10 - K62.89) Sample of Recticare cream given to patient Jul, Change in stool caliber (ICD-10 - R19.4) [email or web address] Other Evaluation + Plan note Future Appointments Appointment Date:02/10/2024 03:00:00 PM Scheduled Provider: Location:[facility] Appointment Type:Surgery FT [facility] Evaluation noteNo assessment information available [facility] Work Phone: Evaluryeqt note* Diagnosis Multiple sclerosis, relapsing-remitting (HCC) Multiple sclerosis [facility]* Diagnosis Multiple sclerosis (HCC)- Primary Multiple sclerosis Multiple sclerosis, relapsing-remitting (HCC) Multiple sclerosis documented in this encounter [facility] noteNo InformationNortWarren [facility] Other Evaluation note* Diagnosis Multiple sclerosis, relapsing-remitting (HCC) Multiple sclerosis documented in this encounter [facility] note* Diagnosis Multiple sclerosis, relapsing-remitting (HCC)- Primary Multiple sclerosis documented in this encounter [facility] note* Diagnosis Encounter for screening mammogram for breast cancer documented in this encounter [facility] note* Diagnosis Multiple sclerosis, relapsing-remitting (HCC) Multiple sclerosis documented in this encounter [facility] note* Diagnosis Multiple sclerosis (HCC)- Primary Multiple sclerosis documented in this encounter [facility] note* Diagnosis Multiple sclerosis, relapsing-remitting (HCC)- Primary Multiple sclerosis [facility]* Diagnosis Multiple sclerosis, relapsing-remitting (HCC)- Primary Multiple sclerosis [facility]* Diagnosis Encounter for screening mammogram for breast cancer [facility]* Diagnosis Multiple sclerosis (HCC)- Primary Multiple sclerosis [facility]* Diagnosis Multiple sclerosis (CMS/HCC)- Primary Multiple sclerosis Primary hypertension (CMS/HCC) Unspecified essential hypertension Anxiety and depression (CMS/HCC) COPD with exacerbation (CMS/HCC) Non-recurrent acute suppurative otitis media of left ear without spontaneous rupture of tympanic membrane [facility]* Diagnosis Cervical disc disorder with radiculopathy- Primary Brachial neuritis or radiculitis nos Cervical stenosis of spine Spinal stenosis in cervical region Chronic neck pain Cervicalgia [facility]* Diagnosis Multiple sclerosis (HCC)- Primary Multiple sclerosis documented in this encounter [facility] note* Diagnosis Cervical stenosis of spine- Primary Spinal stenosis in cervical region [facility]* Diagnosis Left arm weakness- Primary Other musculoskeletal symptoms referable to limbs [facility]* Diagnosis Multiple sclerosis (HCC)- Primary Multiple sclerosis Vitamin D deficiency Unspecified vitamin D deficiency [facility]* Diagnosis S/P arthroscopy of left shoulder- Primary [facility]* Diagnosis S/P arthroscopy of left shoulder [facility]* Diagnosis Class 3 severe obesity without [...] other sinus- Primary [facility]* Diagnosis Class 3 severe [...] and depression (CMS/HCC) documented in this encounter [facility]* Diagnosis Pre-op testing- Primary Unspecified pre-operative examination Rotator cuff impingement syndrome of left shoulder documented in this encounter [facility]* Diagnosis Diverticulitis- Primary Diverticulitis of colon (without mention of hemorrhage) Class 3 severe obesity without serious comorbidity with body mass index (BMI) of 45.0 to 49.9 in adult, unspecified obesity type (CMS/HCC) documented in this encounter [facility] [...] Yeast dermatitis documented [facility]* Diagnosis Dermatitis associated with moisture- Primary Pressure injury of left buttock, stage 2 (CMS-HCC) [facility] Diagnosis Altered mental status, unspecified [...] anxiety disorder with panic attacks Multiple sclerosis ([facility]-HCC) Multiple sclerosis documented in this encounter [facility] SystemHistory general Narrative - Reported* Type Description Date Surgical History ectopic Surgical History tubal ligation Surgical History caprpal tunnel release [facility] [employer] Other History general Narrative - Reported* Type Description Date Surgical History ectopic Surgical History tubal ligation Surgical History caprpal tunnel release Hospitalization History see above [facility] Other Hospital course Narrative No data available for this section [facility] Discharge instructions No data available for this section [facility] InstructionsNot on filedocumented in this encounter [facility] SystemProgress note No data available for this section [facility] Reason for referral (narrative)* Diagnostic Procedure Only (Routine) - Pending Review Specialty Diagnoses / Procedures Referred By Atilio carbone Referred To Contact [facility] Diagnoses Encounter for screening mammogram for breast cancer Procedures ALIYA SCREENING SCREENING MAMMOGRAPHY BI 2-VIEW BREAST INC Valdez Cohen MD [address] [place] [address] [facility] [address] [place] [phone] Referral ID Status Reason Start Date Expiration Date Visits Requested Visits Authorized [id number] Pending Review Auto-Generat ed Referral 11/15/2021 12/15/2022 1 1 [facility] for referral (narrative)* Diagnostic Procedure Only (Routine) - Pending Review Specialty Diagnoses / Procedures Referred By Atilio carbone Referred To Contact [facility] Diagnoses Encounter for screening mammogram for breast cancer Procedures ALIYA SCREENING SCREENING MAMMOGRAPHY BI 2-VIEW BREAST INC Valdez Cohen MD [address] [place] [address] [facility] [address] [place] [address] Referral ID Status Reason Start Date Expiration Date Visits Requested Visits Authorized [id number] Pending Review Auto-Generat ed Referral 10/17/2022 11/16/2023 1 1 [facility] for referral (narrative)* Consultation (Routine) Specialty Diagnoses / Procedures Referred By Atilio carbone Referred To Contact Neurology [facility] [address] [address] Aron Chinchilla MD [address] [facility] [address] [place] [address] Referral ID Status Reason Start Date Expiration Date V isits Requested Visits Authorized Specialty Services [facility]Reason for visit NarrativeREFERRED BY FRED GRACIA FOR CONSTIPATION, (REFERRAL NOTE RECEIVED)[employer] Other Reason for visit Narrative* Rehabilitation - Outpatient (Routine) - Authorized Specialty Diagnoses / Procedures Referred By Atilio carbone Referred To Contact Physical Therapy Diagnoses S/P arthroscopy of left shoulder Procedures [place] OFFICE/OUTPATIENT NEW HIGH MDM 60 MINUTES Eliazar Brooks, DO [address] [place] [address] Phone: tel: fax: Aria Kumar PT Referral ID Status Reason Start Date Expiration Date Visits Requested Visits Authorized [id number] Authorized Specialty Services Required 04/10/2024 12 12 [...] Multiple sclerosis, relapsing-remitting (HCC) Procedures CONSULT TO APPARATUS ENGINEERING TECHNOLOGIST OCCUPATIONAL THERAPY EVAL HIGH COMPLEX 60 MINS Jessica Clarke PA-C [address] [place] [address] [facility] [place] [address] Referral ID Status Reason Start Date Expiration Date Visits Requested Visits Authorized [id number] Pending Review Auto-Generat ed Referral 09/15/2021 09/15/2022 1 1 Specialty Diagnoses / Procedures Referred By Atilio carbone Referred To Contact MR IMAGING Diagnoses Multiple sclerosis, relapsing-remitting (HCC) Procedures MRI BRAIN WO/W IVCON MRI BRAIN BRAIN STEM W/O W/CONTRAST MATERIAL Jessica Clarke PA-C [address] [place] [address] Mr Imaging Referral ID Status Reason Start Date Expiration Date Visits Requested Visits Authorized [id number] Pending Review Auto-Generat ed Referral 09/15/2021 10/15/2022 1 1 Referral ID Status Reason Start Date Expiration Date V isits Requested Visits Authorized [id number] Closed Auto-Generate d Referral 09/15/2021 11/25/2021 1 1 Specialty Diagnoses / Procedures Referred By Atilio carbone Referred To Contact MR IMAGING Diagnoses Multiple sclerosis, relapsing-remitting (HCC) Procedures MRI BRAIN WO/W IVCON MRI BRAIN BRAIN STEM W/O W/CONTRAST MATERIAL Marce, Sarthak, MD, PhD [address] [place] [address] Mr Imaging Referral ID Status Reason Start Date Expiration Date Visits Requested Visits Authorized [id number] Pending Review Auto-Generat ed Referral 11/14/2021 12/14/2022 1 1 Specialty Diagnoses / Procedures Referred By Contac t Referred To Contact MR IMAGING Diagnoses Multiple sclerosis, relapsing-remitting (HCC) Procedures MRI CERVICAL SPINE WO/W IVCON MRI SPINAL CANAL CERVICAL W/O & W/CONTR MATRL Jessica Clarke PA-C [address] [place] [address] Mr Imaging Referral ID Status Reason Start Date Expiration Date Visits Requested Visits Authorized [id number] Pending Review Auto-Generat ed Referral 08/30/2022 09/29/2023 1 1 Referral ID Status Reason Start Date Expiration Date Visits Requested Visits Authorized [id number] Pending Review Auto-Generat ed Referral 08/30/2022 09/29/2023 1 1 Specialty Diagnoses / Procedures Referred By Contac t Referred To Contact [facility] Diagnoses Cervical disc disorder with radiculopathy Procedures CONSULT TO PHYSICAL THERAPY PHYSICAL THERAPY EVALUATION HIGH COMPLEX [address] [place] [address] [address] [facility] [address] [address] Referral ID Status Reason Start Date Expiration Date Visits Requested Visits Authorized [id number] Pending Review Auto-Generat ed Referral 07/10/2023 07/09/2024 1 1 Specialty Diagnoses / Procedures Referred By Contac t Referred To Contact MR IMAGING Diagnoses Multiple sclerosis (HCC) Procedures MRI BRAIN WO/W IVCON MRI BRAIN BRAIN STEM W/O W/CONTRAST MATERIAL Jessica Clarke PA-C [address] [place] [address] [place] [address] Referral ID Status Reason Start Date Expiration Date Visits Requested Visits Authorized [id number] Pending Review Auto-Generat ed Referral 07/16/2023 08/14/2024 1 1 Specialty Diagnoses / Procedures Referred By Contac t Referred To Contact Diagnoses Cervical stenosis of spine Procedures CONSULT TO SPINE SURGERY OFFICE/OUTPATIENT [facility] 60 MINUTES Jessica Clarke PA-C [address] [place] [id number] Referral ID Status Reason Start Date Expiration Date Visits Requested Visits Authorized [id number] Authorized PCP Requested Referral 08/22/2023 08/21/2024 1 1 Specialty Diagnoses / Procedures Referred By Contac t Referred To Contact MR IMAGING Diagnoses Left arm weakness Procedures MRI CERVICAL SPINE WO IVCON MRI SPINAL CANAL CERVICAL W/O CONTRAST MATRL Lashaun Vasquez PA-C [address] [place] [address] Mr Imaging [place] [address] Referral ID Status Reason Start Date Expiration Date Visits Requested Visits Authorized [id number] Pending Review Auto-Generat ed Referral 09/06/2023 10/05/2024 1 1 Specialty Diagnoses / Procedures Referred By Contac t Referred To Contact [facility] Diagnoses Left arm weakness Procedures EMG(NEURO/NI) NERVE CONDUCTION STUDIES 9-10 STUDIES Lashaun Vasquez PA-C [address] [place] [address] [facility] [place] [address] [place] [address] Referral ID Status Reason Start Date Expiration Date Visits Requested Visits Authorized [id number] Pending Review Auto-Generat ed Referral 09/06/2023 09/05/2024 1 1 Specialty Diagnoses / Procedures Referred By Contac t Referred To Contact XR IMAGING Diagnoses Left arm weakness Procedures XR CERV OTHER 4V AP/LAT/FLX/EXT RADEX SPINE CERVICAL 4 OR 5 VIEWS Lashaun Vasquez PA-C [address] [place] [phone] Xr Imaging [place] [address] Referral ID Status Reason Start Date Expiration Date Visits Requested Visits Authorized [id number] Pending Review Auto-Generat ed Referral 09/06/2023 10/05/2024 1 1 Specialty Diagnoses / Procedures Referred By Atilio carbone Referred To Contact Physical Therapy Diagnoses S/P arthroscopy of left shoulder Procedures [place] OFFICE/OUTPATIENT [facility] 60 MINUTES Eliazar Brooks, DO [address] [place] [address] Aria Kumar PT Referral ID Status Reason Start Date Expiration Date Visits Requested Visits Authorized [id number] Pending Review Specialty Services Required 02/25/2024 08/23/2024 1 1 Assessments Findings Encounter Date Encounter for Immunization 1st COVID Vaccine meme ng Jazmin Shaikh PharmD 07/28/2020 Instructions Instructions not supported [...] Date Unknown August 22, 2024 10:4 5pm Chief Complaint Admit Date Unknown August 22, 2024 10:4 5pm Unknown October 17, 2024 9:45a m Medications Administered Section Inactive Administered Medications - [...] 50 mg, ORAL, ONCE, 1 dose, On Sat03/22/22 at 0800 Given 03/22/2022 8:15 AM EDT 50 mg methylPREDNISolone sod succinate(PF) 100 mg injection (SOLU-Medrol) 100 mg, INTRAVENOUS, ONCE, 1 dose, On Sat03/22/22 at 0800 Given 03/22/2022 8:20 AM EDT [...] content) DATE CREATED AUTHOR 11/12/2017 [facility] DATE CREATED AUTHOR AUTHOR'S ORGANIZ ATION 11/13/2017 [facility] als and Wellness [facility] DATE CREATED AUTHOR AUTHOR'S ORGANIZ ATION 10/02/2022 [facility] DATE CREATED AUTHOR AUTHOR'S ORGANIZ ATION 12/21/2023 [facility] DATE CREATED AUTHOR AUTHOR'S ORGANIZ ATION 02/07/2024 [facility] DATE CREATED AUTHOR AUTHOR'S ORGANIZ ATION 08/19/2024 [facility] DATE CREATED AUTHOR AUTHOR'S ORGANIZ ATION 09/03/2024 [facility] DATE CREATED AUTHOR AUTHOR'S ORGANIZ ATION 09/21/2024 [facility] DATE CREATED AUTHOR AUTHOR'S ORGANIZ ATION 09/24/2024 [facility] DATE CREATED AUTHOR AUTHOR'S ORGANIZ ATION 09/24/[address] [facility] DATE CREATED AUTHOR AUTHOR'S ORGANIZ ATION 10/15/2024 [facility] DATE CREATED AUTHOR AUTHOR'S ORGANIZ ATION 10/18/2024 [facility] DATE CREATED AUTHOR AUTHOR'S ORGANIZ ATION 10/19/2024 [facility] Medical History (unrecognize d section and content) Includes: Medical History in patient's chartNo Medical History Recorded Evaluations & Outcomes (unre cognized section and content) Includes: Evaluations & Outcomes for active GoalsNo Outcomes Recorded Care Teams (unrecognized sec tion and content) Team Status: Inactive Member Role Status Dates Services [facility] Primary Care Provider Active Liyah Rosa MD Attending Provider Active Team Status: Active Member Role Status Dates Services Family [facility] Primary Care Provider Active [employer] Supervisor Relationship Specialty Start Date End Date Valdez Acosta MD [address] [place] [address] PCP - General Internal Medicine 11/01/20 [employer] Supervisor Relationship Specialty Start Date End Date Valdez Acosta MD [address] [place] [address] PCP - General Internal Medicine 11/01/20 [employer] Supervisor Relationship Specialty Start Date End Date Valdez Acosta MD [address] [place] [address] PCP - General Internal Medicine 11/01/20 [employer] Supervisor Relationship Specialty Start Date End Date Valdez Acosta MD [address] [place] [address] PCP - General Internal Medicine 11/01/20 [employer] Supervisor Relationship Specialty Start Date End Date Valdez Acosta MD [address] [place] [address] PCP - General Internal Medicine 11/01/20 [employer] Supervisor Relationship Specialty Start Date End Date Valdez Acosta MD [address] [place] [address] PCP - General Internal Medicine 11/01/20 [employer] Supervisor Relationship Specialty Start Date End Date Valdez Acosta MD [address] [place] [address] PCP - General Internal Medicine 11/01/20 [employer] Supervisor Relationship Specialty Start Date End Date Valdez Acosta MD [address] [place] [address] PCP - General Internal Medicine 11/01/20 [employer] Supervisor Relationship Specialty Start Date End Date Valdez Acosta MD [address] [place] [address] PCP - General Internal Medicine 11/01/20 [employer] Supervisor Relationship Specialty Start Date End Date Valdez Acosta MD [address] [place] [address] PCP - General Internal Medicine 11/01/20 [employer] Supervisor Relationship Specialty Start Date End Date Valdez Acosta MD [address] [place] [address] PCP - General Internal Medicine 11/01/20 [employer] Supervisor Relationship Specialty Start Date End Date Valdez Acosta MD [address] [place] [address] PCP - General Internal Medicine 11/01/20 [employer] Supervisor Relationship Specialty Start Date End Date Valdez Acosta MD [address] [place] [address] PCP - General Internal Medicine 11/01/20 [employer] Supervisor Relationship Specialty Start Date End Date Valdez Acosta MD [address] [place] [address] PCP - General Internal Medicine 11/01/20 [employer] Supervisor Relationship Specialty Start Date End Date Maxim Lanza MD [address] [place] [address] PCP - General Family Medicine 04/22/23 Fred Gracia NP [address] [place] [address] Nurse Practitioner Family Medicine 05/20/22 [employer] Supervisor Relationship Specialty Start Date End Date Maxim Lanza MD [address] [place] [address] PCP - General Family Medicine 04/22/23 Fred Gracia NP [address] [place] [address] Nurse Practitioner Family Medicine 05/20/22 [employer] Supervisor Relationship Specialty Start Date End Date Valdez Acosta MD [address] [place] [address] PCP - General Internal Medicine 11/01/20 [employer] [place] Supervisor Relationship Specialty Start Date End Date Valdez Acosta MD [address] [place] [address] PCP - General Internal Medicine 11/01/20 [employer] [place] Supervisor Relationship Specialty Start Date End Date Valdez Acosta MD [address] [place] [address] PCP - General Internal Medicine 11/01/20 [employer] [place] Supervisor Relationship Specialty Start Date End Date Valdez Acosta MD [address] [place] [address] PCP - General Internal Medicine 11/01/20 [employer] [place] Supervisor Relationship Specialty Start Date End Date Valdez Acosta MD [address] [place] [address] PCP - General Internal Medicine 11/01/20 [employer] Supervisor Relationship Specialty Start Date End Date Valdez Acosta MD [address] [place] [address] PCP - General Internal Medicine 11/01/20 [employer] [place] Supervisor Relationship Specialty Start Date End Date Valdez Acosta MD [address] [place] [address] PCP - General Internal Medicine 11/01/20 [employer] Supervisor Relationship Specialty Start Date End Date Maxim Lanza MD [address] [place] [address] PCP - General Family Medicine 07/15/23 Fred Gracia NP [address] [place] [address] Primary Care Provider Family Medicine 05/20/22 [employer] Supervisor Relationship Specialty Start Date End Date Maxim Lanza MD [address] [place] [address] PCP - General Family Medicine 07/15/23 Fred Gracia NP [address] [place] [address] Primary Care Provider Family Medicine 05/20/22 [employer] Supervisor Relationship Specialty Start Date End Date Maxim Lanza MD [address] [place] [address] PCP - General Family Medicine 07/15/23 Fred Gracia NP [address] [place] [address] Primary Care Provider Family Medicine 05/20/22 [employer] Supervisor Relationship Specialty Start Date End Date Maxim Lanza MD [address] [place] [address] PCP - General Family Medicine 07/15/23 Fred Gracia NP [address] [place] [address] Primary Care Provider Family Medicine 05/20/22 [employer] [place] Supervisor Relationship Specialty Start Date End Date Maxim Lanza MD [address] [place] [address] PCP - General Family Medicine 07/15/23 Fred Gracia NP [address] [place] [address] Primary Care Provider Family Medicine 05/20/22 [employer] [place] Supervisor Relationship Specialty Start Date End Date Maxim Lanza MD [address] [place] [address] PCP - General Family Medicine 07/15/23 Fred Gracia NP [address] [place] [address] Primary Care Provider Family Medicine 05/20/22 [employer] Supervisor Relationship Specialty Start Date End Date Maxim Lanza MD [address] [place] [address] PCP - General Family Medicine 07/15/23 Fred Gracia NP [address] [place] [address] Primary Care Provider Family Medicine 05/20/22 [employer] [place] Supervisor Relationship Specialty Start Date End Date Maxim Lanza MD [address] [place] [address] PCP - General Family Medicine 07/15/23 Fred Gracia NP [address] [place] [address] Primary Care Provider [facility] Medicine 05/20/22 [place] Supervisor Relationship Specialty Start Date End Date Maxim Lanza MD [address] [place] [address] PCP - General Family Medicine 07/15/23 Fred Gracia NP [address] [place] [address] Primary Care Provider [facility] Medicine 05/20/22 [employer] [place] Supervisor Relationship Specialty Start Date End Date Maxim Lanza MD [address] [place] [address] PCP - General Family Medicine 07/15/23 Fred Gracia NP [address] [place] [address] Primary Care Provider [facility] Medicine 05/20/22 [employer] [place] Supervisor Relationship Specialty Start Date End Date Maxim Lanza MD [address] [place] [address] PCP - General Family Medicine 07/15/23 Fred Gracia NP [address] [place] [address] Primary Care Provider Family Medicine 05/20/22 [employer] [place] Supervisor Relationship Specialty Start Date End Date Maxim Lanza MD [address] [place] [address] PCP - General Family Medicine 07/15/23 Fred Gracia NP [address] [place] [address] Primary Care Provider Family Medicine 05/20/22 [employer] [place] Supervisor Relationship Specialty Start Date End Date Maxim Lanza MD [address] [place] [address] PCP - General Family Medicine 07/15/23 Fred Gracia NP [address] [place] [address] Primary Care Provider Family Medicine 05/20/22 [employer] [place] Supervisor Relationship Specialty Start Date End Date Maxim Lanza MD [address] [place] [address] PCP - General Family Medicine 07/15/23 Fred Gracia NP [address] [place] [address] Primary Care Provider Family Medicine 05/20/22 [employer] [place] Supervisor Relationship Specialty Start Date End Date Maxim Lanza MD [address] [place] [address] PCP - General Family Medicine 07/15/23 Fred Gracia NP [address] [place] [address] Primary Care Provider Family Medicine 05/20/22 [employer] [place] Supervisor Relationship Specialty Start Date End Date Maxim Lanza MD [address] [place] [address] PCP - General Family Medicine 07/15/23 Fred Gracia NP [address] [place] [address] Primary Care Provider Family Medicine 05/20/22 [employer] [place] Supervisor Relationship Specialty Start Date End Date Maxim Lanza MD [address] [place] [address] PCP - General Family Medicine 07/15/23 Fred Gracia NP [address] [place] [address] Primary Care Provider Family Medicine 05/20/22 [employer] [place] Supervisor Relationship Specialty Start Date End Date Maxim Lanza MD [address] [place] [address] PCP - General Family Medicine 07/15/23 Fred Gracia NP [address] [place] [address] Primary Care Provider Family Medicine 05/20/22 [place] Supervisor Relationship Specialty Start Date End Date Maxim Lanza MD [address] [place] [address] PCP - General Family Medicine 07/15/23 Fred Gracia, WASTE/MATERIALS EXCHANGE SPECIALIST [address] [place] [address] Primary Care Provider Family Medicine 05/20/22 [employer] [place] Supervisor Relationship Specialty Start Date End Date Valdez Acosta MD [address] [place] [address] PCP - General Internal Medicine 11/01/20 Sherrie Smith PA-C [address] [place], [place] [phone] Planer Operator Internal Medicine 04/26/24 Elizabeth Lopez, SAFETY INSTRUCTION POLICE OFFICER.[facility] [address] [place] [address] Planer Operator Family Medicine 04/26/24 [employer] Supervisor Relationship Specialty Start Date End Date Maxim Lanza MD [address] [place] [address] PCP - General Family Medicine 07/15/23 Fred Gracia, KIRK [address] [place] [address] Primary Care Provider Family Medicine 05/20/22 [employer] [place] Supervisor Relationship Specialty Start Date End Date Maxim Lanza MD [address] [place] [address] PCP - General Family Medicine 07/15/23 Fred Gracia NP [address] [place] [address] Primary Care Provider Family Medicine 05/20/22 [employer] [place] Supervisor Relationship Specialty Start Date End Date Maxim Lanza MD [address] [place] [address] PCP - General Family Medicine 07/15/23 Fred Gracia NP [address] [place] [address] Primary Care Provider Family Medicine 05/20/22 [place] Supervisor Relationship Specialty Start Date End Date Maxim Lanza MD [address] [place] [address] PCP - General Family Medicine 07/15/23 Fred Gracia NP [address] [place] [address] Primary Care Provider Family Medicine 05/20/22 [employer] [place] Supervisor Relationship Specialty Start Date End Date Maxim Lanza MD [address] [place] [address] PCP - General Family Medicine 07/15/23 Fred Gracia NP [address] [place] [address] Primary Care Provider Family Medicine 05/20/22 [employer] [place] Supervisor Relationship Specialty Start Date End Date Maxim Lanza MD [address] [place] [address] PCP - General Family Medicine 07/15/23 Fred Gracia NP [address] [place] [address] Primary Care Provider Family Medicine 05/20/22 [employer] [place] Supervisor Relationship Specialty Start Date End Date Maxim Lanza MD [address] [place] [address] PCP - General Family Medicine 07/15/23 Fred Gracia NP [address] [place] [address] Primary Care Provider Family Medicine 05/20/22 [employer] [place] Supervisor Relationship Specialty Start Date End Date Maxim Lanza MD [address] [place] [address] PCP - General Family Medicine 07/15/23 Fred Gracia NP [address] [place] [address] Primary Care Provider Family Medicine 05/20/22 [employer] [place] Supervisor Relationship Specialty Start Date End Date Maxim Lanza MD [address] [place] [address] PCP - General Family Medicine 07/15/23 Fred Gracia NP [address] [place] [address] Primary Care Provider Family Medicine 05/20/22 [employer] [place] Supervisor Relationship Specialty Start Date End Date Maxim Lanza MD [address] [place] [address] PCP - General Family Medicine 07/15/23 Fred Gracia NP [address] [place] [address] Primary Care Provider Family Medicine 05/20/22 [employer] Supervisor Relationship Specialty Start Date End Date Maxim Lanza MD [address] [place] [address] PCP - General Family Medicine 07/15/23 Fred Gracia NP [address] [place] [address] Primary Care Provider [facility] Medicine 05/20/22 Team Status: Inactive Member Role Status Dates Tripp Gruber MD Attending Provider Active St art: August 22, 2024 End: August 22, 2024 [employer] [place] Supervisor Relationship Specialty Start Date End Date Maxim Lanza MD [address] [place] [address] PCP - General Family Medicine 07/15/23 Fred Gracia NP [address] [place] [address] Primary Care Provider Family Medicine 05/20/22 [employer] [place] Supervisor Relationship Specialty Start Date End Date Fred Gracia, SAFETY INSTRUCTION POLICE OFFICER-HANDKERCHIEF FOLDER [address] [place] [address] PCP - General Nurse Practitioner 08/28/24 [employer] [place] Supervisor Relationship Specialty Start Date End Date Maxim Lanza MD [address] [place] [address] PCP - General Family Medicine 07/15/23 Fred Gracia NP [address] [place] [address] Primary Care Provider Family Medicine 05/20/22 [place] Supervisor Relationship Specialty Start Date End Date Fred Gracia, SAFETY INSTRUCTION POLICE OFFICER-HANDKERCHIEF FOLDER PCP - General Nurse Practitioner 08/28/24 [place] Supervisor Relationship Specialty Start Date End Date Fred Gracia, SAFETY INSTRUCTION POLICE OFFICER-HANDKERCHIEF FOLDER PCP - General Nurse Practitioner 08/28/24 [place] Supervisor Relationship Specialty Start Date End Date Maxim Lanza MD [address] [place] [address] PCP - General Family Medicine 07/15/23 Fred Gracia NP [address] [place] [address] Primary Care Provider [facility] Medicine 05/20/22 Team Status: Inactive Member Role Status Dates Alonzo Holguin MD Attending Provider Active Sta rt: October 17, 2024 End: October 17, 2024 Goals (unrecognized section and content) Goals may be documented in a n alternate section Source Comments (unrecognize d section and content) In the event this informatio n is protected by the Federal Confidentiality of Alcohol and Drug Abuse Patient Records regulations: The Federal rules restrict any use of the information to criminally investigate or prosecute any alcohol or drug abuse patient.[facility] Center[facility] the event this information is protected by the Federal Confidentiality of Alcohol and Drug Abuse Patient Records regulations: The Federal rules restrict any use of the information to criminally investigate or prosecute any alcohol or drug abuse patient.[facility] CenterIn the event this information is protected by the Federal Confidentiality of Alcohol and Drug Abuse Patient Records regulations: The Federal rules restrict any use of the information to criminally investigate or prosecute any alcohol or drug abuse patient.[facility] CenterIn the event this information is protected by the Federal Confidentiality of Alcohol and Drug Abuse Patient Records regulations: The Federal rules restrict any use of the information to criminally investigate or prosecute any alcohol or drug abuse patient.[facility] CenterIn the event this information is protected by the Federal Confidentiality of Alcohol and Drug Abuse Patient Records regulations: The Federal rules restrict any use of the information to criminally investigate or prosecute any alcohol or drug abuse patient.[facility] CenterIn the event this information is protected by the Federal Confidentiality of Alcohol and Drug Abuse Patient Records regulations: The Federal rules restrict any use of the information to criminally investigate or prosecute any alcohol or drug abuse patient.[facility] CenterIn the event this information is protected by the Federal Confidentiality of Alcohol and Drug Abuse Patient Records regulations: The Federal rules restrict any use of the information to criminally investigate or prosecute any alcohol or drug abuse patient.[facility] CenterIn the event this information is protected by the Federal Confidentiality of Alcohol and Drug Abuse Patient Records regulations: The Federal rules restrict any use of the information to criminally investigate or prosecute any alcohol or drug abuse patient.[facility] CenterIn the event this information is protected by the Federal Confidentiality of Alcohol and Drug Abuse Patient Records regulations: The Federal rules restrict any use of the information to criminally investigate or prosecute any alcohol or drug abuse patient.[facility] CenterIn the event this information is protected by the Federal Confidentiality of Alcohol and Drug Abuse Patient Records regulations: The Federal rules restrict any use of the information to criminally investigate or prosecute any alcohol or drug abuse patient.[facility] CenterIn the event this information is protected by the Federal Confidentiality of Alcohol and Drug Abuse Patient Records regulations: The Federal rules restrict any use of the information to criminally investigate or prosecute any alcohol or drug abuse patient.[facility] CenterIn the event this information is protected by the Federal Confidentiality of Alcohol and Drug Abuse Patient Records regulations: The Federal rules restrict any use of the information to criminally investigate or prosecute any alcohol or drug abuse patient.[facility] CenterIn the event this information is protected by the Federal Confidentiality of Alcohol and Drug Abuse Patient Records regulations: The Federal rules restrict any use of the information to criminally investigate or prosecute any alcohol or drug abuse patient.[facility] CenterIn the event this information is protected by the Federal Confidentiality of Alcohol and Drug Abuse Patient Records regulations: The Federal rules restrict any use of the information to criminally investigate or prosecute any alcohol or drug abuse patient.[facility] CenterIn the event this information is protected by the Federal Confidentiality of Alcohol and Drug Abuse Patient Records regulations: The Federal rules restrict any use of the information to criminally investigate or prosecute any alcohol or drug abuse patient.[facility] CenterIn the event this information is protected by the Federal Confidentiality of Alcohol and Drug Abuse Patient Records regulations: The Federal rules restrict any use of the information to criminally investigate or prosecute any alcohol or drug abuse patient.[facility] CenterIn the event this information is protected by the Federal Confidentiality of Alcohol and Drug Abuse Patient Records regulations: The Federal rules restrict any use of the information to criminally investigate or prosecute any alcohol or drug abuse patient.[facility] CenterIn the event this information is protected by the Federal Confidentiality of Alcohol and Drug Abuse Patient Records regulations: The Federal rules restrict any use of the information to criminally investigate or prosecute any alcohol or drug abuse patient.[facility] CenterIn the event this information is protected by the Federal Confidentiality of Alcohol and Drug Abuse Patient Records regulations: The Federal rules restrict any use of the information to criminally investigate or prosecute any alcohol or drug abuse patient.[facility] CenterIn the event this information is protected by the Federal Confidentiality of Alcohol and Drug Abuse Patient Records regulations: The Federal rules restrict any use of the information to criminally investigate or prosecute any alcohol or drug abuse patient.[facility] CenterIn the event this information is protected by the Federal Confidentiality of Alcohol and Drug Abuse Patient Records regulations: The Federal rules restrict any use of the information to criminally investigate or prosecute any alcohol or drug abuse patient.[facility] CenterIn the event this information is protected by the Federal Confidentiality of Alcohol and Drug Abuse Patient Records regulations: The Federal rules restrict any use of the information to criminally investigate or prosecute any alcohol or drug abuse patient.[facility] CenterIn the event this information is protected by the Federal Confidentiality of Alcohol and Drug Abuse Patient Records regulations: The Federal rules restrict any use of the information to criminally investigate or prosecute any alcohol or drug abuse patient.[facility] CenterIn the event this information is protected by the Federal Confidentiality of Alcohol and Drug Abuse Patient Records regulations: The Federal rules restrict any use of the information to criminally investigate or prosecute any alcohol or drug abuse patient.[facility] CenterIn the event this information is protected by the Federal Confidentiality of Alcohol and Drug Abuse Patient Records regulations: The Federal rules restrict any use of the information to criminally investigate or prosecute any alcohol or drug abuse patient.[facility] CenterIn the event this information is protected by the Federal Confidentiality of Alcohol and Drug Abuse Patient Records regulations: The Federal rules restrict any use of the information to criminally investigate or prosecute any alcohol or drug abuse patient.[facility] CenterIn the event this information is protected by the Federal Confidentiality of Alcohol and Drug Abuse Patient Records regulations: The Federal rules restrict any use of the information to criminally investigate or prosecute any alcohol or drug abuse patient.[facility] CenterIn the event this information is protected by the Federal Confidentiality of Alcohol and Drug Abuse Patient Records regulations: The Federal rules restrict any use of the information to criminally investigate or prosecute any alcohol or drug abuse patient.[facility] CenterIn the event this information is protected by the Federal Confidentiality of Alcohol and Drug Abuse Patient Records regulations: The Federal rules restrict any use of the information to criminally investigate or prosecute any alcohol or drug abuse patient.[facility] Reason for Visit (unrecogniz ed section and content) Reason Comments IV Medication Administration Ocrevus Specialty Diagnoses / Procedures Referred By Atilio carbone Referred To Contact Diagnoses Multiple sclerosis (HCC) G35 (ICD-10-CM) - Multiple sclerosis (HCC) Procedures INJECTION, OCRELIZUMAB, 1 MG J2350 - INJECTION, OCRELIZUMAB, 1 MG Sarthak Escobar MD, PhD [address] [facility] [place] [address] [facility] [address] [place] [address] Referral ID Status Reason Start Date Expiration Date V isits Requested Visits Authorized [id number] Pending Review 12/06/2020 03/22/2023 4 4 Reason Comments Established Patient Follow-Up Reason Comments Infusion Ocre[facility]us Referral ID Status Reason Start Date Expiration Date V isits Requested Visits Authorized [id number] Pending Review 12/06/2020 03/01/2022 2 2 Specialty Diagnoses / Procedures Referred By Contac t Referred To Contact MR IMAGING Diagnoses Multiple sclerosis, relapsing-remitting (HCC) Procedures MRI BRAIN WO/W IVCON MRI BRAIN BRAIN STEM W/O W/CONTRAST MATERIAL Jessica Clarke PA-C [address] [place] [address] Mr Imaging Referral ID Status Reason Start Date Expiration Date V isits Requested Visits Authorized [id number] Closed Auto-Generate d Referral 09/15/2021 11/25/2021 1 1 Reason Comments Established Patient Follow-Up Reason Comments [facility] Specialty Diagnoses / Procedures Referred By Contac t Referred To Contact [facility] Diagnoses Multiple sclerosis, relapsing-remitting (HCC) Procedures CONSULT TO APPARATUS ENGINEERING TECHNOLOGIST OCCUPATIONAL THERAPY EVAL HIGH COMPLEX 60 MINS Jessica Clarke PA-C [address] [place] [address] [facility] [place] [address] Referral ID Status Reason Start Date Expiration Date V isits Requested Visits Authorized [id number] Closed Auto-Generate d Referral 09/15/2021 05/19/2022 1 1 Reason Comments Appointment Called pt LVM to see about setting up pt and psycology. Reason Comments Established Patient Follow-Up Reason Comments Patient Update Reason Comments URI Reason Comments Consult Cervical pain Specialty Diagnoses / Procedures Referred By Contac t Referred To Contact [facility] [place] Diagnoses Cervical stenosis of spine Procedures CONSULT TO [facility] OFFICE/OUTPATIENT NEW HIGH MDM 60 MINUTES Jessica Clarke PA-C [address] [place] [id number] Referral ID Status Reason Start Date Expiration Date V isits Requested Visits Authorized [id number] Closed PCP Requested Referral 06/13/2023 06/12/2024 1 [...] MDM 60 MINUTES Eliazar Brooks, DO [address] [facility] [address] Aria Kumar PT Referral ID Status Reason Start Date Expiration Date Visits Requested Visits Authorized [id number] Pending Review Specialty Services Required 02/25/2024 08/23/2024 [...] Test Specialty Diagnoses / Procedures Referred By Contac t Referred To Contact Diagnoses AMS (altered mental status) Altered mental status, unspecified altered mental status type Xena Larios MD [address], [facility] [address] [place] [address] Phone: tel: fax: Referral ID Status Reason Start Date Expiration Date Visits Re quested Visits Authorized [id number] 1 1 Reason Onset Date Comments incision [...] medication - verify indication for use. 1400 (Due)2199 (Due) dexAMETHasone (DECADRON) tablet 3 mg(Linked Group [...] MOE) 0554 (Given - Provider: Elma Moreno, RN)151 (Given - Provider: Taylor Ayala, MOE)2057 (Given - Provider: Elma Moreno, MOE) 06 (Due) enoxaparin (LOVENOX) syringe 40 mg 40 mg, subcutaneous, 2 times daily, First dose (after last modification) on Sat09/26/24 at 2100, When Creatinine Clearance 30 mL/min or greater Look-alike/sound-alike medication - verify indication for use. 09 (Given - Provider: Lida Wright RN)2121 (Given - Provider: Elma Moreno, MOE) 08 (Given - Provider: Taylor Ayala, MOE)2056 (Given - Provider: Elma Moreno, MOE) 0900 (Due)2100 (Due) levETIRAcetam (KEPPRA) IVPB 500 mg/100 mL in iso-osmotic sodium chloride (5 mg/mL premix) (CANCELED) 500 mg, intravenous, at 400 mL/hr, Administer over 15 Minutes, Every 12 hours, First dose on Sat /3/25 at 0715, Look-alike/sound-alike medication - verify indication for use. 0530 (New Bag - Provider: Regina Taylor, RN)0545 (Stop Bag - Provider: Regina Taylor, RN) levETIRAcetam (KEPPRA) tablet 500 mg 500 mg, oral, 2 times daily, First dose on Sat09/27/24 at 1730, Look-alike/sound-alike medication - verify indication for use. 170 (Given - Provider: Lida Wright, RN) 08 (Given - Provider: Taylor Ayala, MOE)2053 (Given - Provider: Elma Moreno, RN) 0900 (Due)2099 (Due) metoprolol tartrate (LOPRESSOR) tablet 25 mg 25 mg, oral, 2 times daily, First dose (after last modification) on Sat09/25/24 at 0900, Hold if SBP is less than 110 mmHg, or diastolic BP is less than 70 mmHg. Thank you. Look-alike/sound-alike medication - verify indication for use. 0912 (Given - Provider: Lida Wright RN)2117 (Given - Provider: Elma Moreno, MOE) 828 (Given - Provider: Taylor Ayala, MOE)2053 (Given - Provider: Elma Moreno, MOE) 0900 (Due)2100 (Due) mirtazapine (REMERON CANDI-TAB) disintegrating tablet 15 mg 15 mg, oral, Nightly, First dose (after last modification) on Maribell 09/24/24 at 2200 2118 (Given - Provider: Elma Moreno, MOE) 2054 (Given - Provider: Elma Moreno, RN) 2199 (Due) sennosides-docusate sodium (SENOKOT-S) 8.6-50 mg 2 tablet 2 tablet, oral, Nightly, First dose (after last modification) on Maribell 09/24/24 at 2200, HOLD for greater than 2 bowel movements in the past 24 hours 2118 (Given - Provider: Elma Moreno, MOE) 2053 (Given - Provider: Elma Moreno, RN) 2199 (Due) Continuous Medication Order 09/27/2024 09/28/2024 09/29/2024 dextrose 2.5 % in water, 1,000 mL infusion 50-150 mL/hr, intravenous, Continuous, Starting on 09/19/24 at 0300, For Sodium level 160 mmol/L or fncfpbe=492 mL/hr; 155 to 159 mmol/L=125 mL/hr; 150-154 [...] (w/v), 30% (w/w) oral paste, Starting on 09/28/24 at 1438, For 1 dose 1444 (Given - Provider: Lorna Dias [facility]) barium sulfate (VARIBAR THIN HONEY) 40 %(w/v), [...] Ibeth Bhatti RCP)1604 (Given - Provider: Nahomy Brown, SCRIPT MANAGER) 0331 (Given - Provider: Jimmy Luo RCP) [...] BE BASED ON THE PRIMARY CLINICAL RECORDS. [facility] [employer] [facility]. provides no warranty or guarantee of the accuracy or completeness of information in this document.
[2024-11-07 11:27] LABS: Anion Gap 11.9; BUN Creatinine Ratio 11.8; Calcium 8.5 mg/dL (8.5-10.1); Carbon Dioxide 32.8 mmol/L (21.0-32.0); Chloride 108 mmol/L (98-107); Estimated GFR (African America 19 (>=60 mL/min/1.73m^2); Estimated GFR (Non-African Ame 16 (>=60 mL/min/1.73m^2); Glucose 99 mg/dL (74-106); Potassium 3.7 mmol/L (3.5-5.1); Sodium 149 mmol/L (136-145)
== END 2024-11-07 10:50 | disposition home or self-care (01) ==
LOC: LAB 10:49
PROVIDERS: PCP Nurse Practitioner; Visit Provider Family Medicine
DX: E87.6 Hypokalemia (principal)
CPT/HCPCS: 36415; 80048

== ENCOUNTER 2024-11-24 18:10 | Emergency (ER) | payer MEDICARE, MEDICAID, SELFPAY ==
--- OUTSIDE RECORDS SUMMARY | 2024-08-06 04:45 | XMS_ITS ---
Author Organization [facility] vices Address [address] [place], [place] [id number] Care Team Providers Care Intrusion Analyst Name Role Phone Dian Salgado Unavailable [phone] REASON FOR VISIT Prophy (A)- 56 Medications [...] Location Date Provider Diagnosis Dental Main [address] [place], [place] [id number] 08/06/2024 Dian Salgado Plan Of Treatment No Information Progress Notes * Yamilka VASQUEZDOB:1970 (54 yo F)Acc No.[id number]:08/06/2024 Patient: Yamilka BARRETO Provider: Maciej Salgado DDS :1970 A ge:54 Y S ex:Female Date:08/06/2024 Address:[facility] [address] , [address], [place], [id number] Subjective: * Chief Complaints: * 1 . [...] Electronic signature of Lauren Salgado DDS on 11/24/2024 at 06:38 PM EDT Sign off status: Pending * Provider: Maciej Salgado DDS Date: 08/06/2024 Generated for Chrissy mireles/June/Bernadette on: 11/24/2024 06:38 PM EDT
--- OUTSIDE RECORDS SUMMARY | 2024-10-14 11:00 | XMS_ITS ---
Author Organization [facility] Address [address] [place] [address] [place] [address] Care Team Providers Care Cable Swager Name Role Phone Rio Ennis Primary Care Provider UnavailGlen Beatty Unavailable [phone] Encounters Encounter Location Date Provider Diagnosis [address] [address] 10/14/2024 Glen Delaney Plan Of Treatment No Information Progress Notes * Yamilka VASQUEZDOB:1970 (54 yo F)Acc No.[id number]:10/14/2024 Patient: Verena BRIGHTLeeSusanaYamilka Provider: Grzegorz Delaney DPM :1970 A ge:54 Y S ex:Female Date:10/14/2024 Address:[facility] Pcp:Rio Ennis Subjective: * Chief Complaints: * * Medical History: Objective: * Vitals: Assessment: Plan: * Treatment: * Images: * Electronic signature of [place] in VASYL Delaney on 11/24/2024 at 06:38 PM EDT Sign off status: Pending * Provider: Grzegorz Delaney DPM Date: 10/14/2024 Generated for Chrissy mireles/June/Bernadette on: 11/24/2024 06:38 PM EDT
--- OUTSIDE RECORDS SUMMARY | 2024-10-19 05:15 | XMS_ITS ---
Author Organization [facility] vices Address [address] [place] [phone] Care Team Providers Care Cylinder Press Operator Apprentice Name Role Phone Dian Salgado Unavailable [phone] REASON FOR VISIT Rest #23-DIL and Prophy Social History Sex Assigned At : Social History Observation Description Sex Assigned At Female Encounters Encounter Location Date Provider Diagnosis [facility] [address] [place], [place] [phone] 10/19/2024 Dian Salgado Plan Of Treatment No Information Progress Notes * Yamilka VASQUEZDOB:1970 (54 yo F)Acc No.[id number]:10/19/2024 Patient: Yamilka BARRETO Provider: Maciej Salgado DDS :1970 A ge:54 Y S ex:Female Date:10/19/2024 Address:[address] , [address], [place], [id number] Subjective: * Chief Complaints: * 1 . Rest #23-DIL and Prophy. * Medical History: Objective: * Vitals: Assessment: Plan: * Treatment: * Billing Information: * Visit Code: * Procedure Codes: * Electronic signature of Lauren Salgado DDS on 11/24/2024 at 06:38 PM EDT Sign off status: Pending * Provider: Maciej Salgado DDS Date: 0 10/19/2024 Generated for Printi ng/Faxing/eTransmitting on: 0 11/24/2024 06:38 PM EDT
--- OUTSIDE RECORDS SUMMARY | 2024-10-26 05:15 | XMS_ITS ---
Author Organization [facility] Address [address] [place] [id number] Care Team Providers Care Information Technology Architect Name Role Phone Dian Salgado Unavailable [phone] REASON FOR VISIT Extraction #31 Social History Sex Assigned At : Social History Observation Description Sex Assigned At Female Encounters Encounter Location Date Provider Diagnosis [facility] [address] [place], [place] [id number] 10/26/2024 Dian Salgado Plan Of Treatment No Information Progress Notes * Yamilka VASQUEZDOB:1970 (54 yo F)Acc No.[id number]:10/26/2024 Patient: Yamilka BARRETO Provider: Maciej Salgado DDS :1970 A ge:54 Y S ex:Female Date:10/26/2024 Address:[address] , [address], [place], [id number] Subjective: * Chief Complaints: * 1 . Extraction #31. * Medical History: Objective: * Vitals: Assessment: Plan: * Treatment: * Billing Information: * Visit Code: * Procedure Codes: * Electronic signature of Lauren Salgado DDS on 11/24/2024 at 06:37 PM EDT Sign off status: Pending * Provider: Maciej Salgado DDS Date: 10/26/2024 Generated for Chrissy mireles/June/eTmunasmitting on: 11/24/2024 06:37 PM EDT
--- OUTSIDE RECORDS SUMMARY | 2024-11-10 13:10 | XMS_ITS | Encounter Summary ---
Author Organization [facility] [facility] Address [id number] [address] [place] [address] Care Team Providers Care Manager Primary Care Name Role Phone Kristin Gracia Primary Care Provider Reason for Referral * Consultation (Routine) - Pending Review Specialty Diagnoses / Procedures Referred By Atilio carobne Referred To Contact Radiation Oncology Diagnoses Brain tumor (CMS-HCC) Double vision Andressa Garcia APRN-CNP [address] [address] Phone: tel: fax: Shen Ramey MD [address] [place] [address] Phone: tel: fax: Referral ID Status Reason Start Date Expiration Date Visits Requested Visits Authorized [id number] Pending Review Specialty Services Required 11/10/2024 11/10/2025 1 1 * Consultation (Routine) - Pending Review Specialty Diagnoses / Procedures Referred By Atilio carbone Referred To Contact Oncology / Hematology and Oncology Diagnoses Brain tumor (CMS-HCC) Double vision Andressa Garcia APRN-CNP [address] [address] Phone: tel: fax: [place] [address] [place] [address], [address] [place] [address] Phone: tel: fax: Referral ID Status Reason Start Date Expiration Date Visits Requested Visits Authorized [id number] Pending Review Specialty Services Required 11/10/2024 11/10/2025 1 1 * Consultation (Routine) - Pending Review Specialty Diagnoses / Procedures Referred By Contact Referred To Contact Optometry / Ophthalmology Diagnoses Brain tumor ([facility]) Double vision Andressa Garcia APRN-CNP [address] [facility] [address] [place] [address] Phone: tel: fax: [facility] [address] [facility] [address] [place] [address] Phone: tel: fax: Referral ID Status Reason Start Date Expiration Date Visits Requested Visits Authorized [id number] Pending Review Specialty Services Required 11/10/2024 11/10/2025 1 1 Reason for Visit * Reason Comments Follow-up 6 week follow up - t umor resection Encounter Details Date Type Department Care Team (Late st Contact Info) Description 11/10/2024 1:10 PM EDT [facility] [address] [place] [id number] Andressa Garcia APRN-CNP [address] [facility] [address] [place] [address] Brain tumor ([facility]) (Primary Dx); Double vision Social History Tobacco Use Types Packs/Day Years Used Date Smoking Tobacco: Some Days Cigarettes Smokeless Tobacco: Never Tobacco Cessation:Ready to Q uit: Not Asked; Counseling Given: Not Answered Alcohol Use Standard Drinks/Week Comments Never 0 (1 standard drink = 0.6 oz pur e alcohol) [facility] Utilities Answer Date Recorded In the [...] got money to buy more. Never True 11/10/2024 Within the past 12 months th e food we bought just didn't last and we didn't have money to get more. Never True 11/10/2024 Comments Unknown Sex and Gender Information Value Date Recorded Sex Assigned at Not on file Legal Sex Female 11:57 AM EST Gender Identity Not on file Sexual Orientation Not on file documented as of this encounter Last Filed Vital Signs Vital Sign Reading Time Taken Comments Blood Pressure - - Pulse - - Temperature - - Respiratory Rate - - Oxygen Saturation - - Inhaled Oxygen Concentration - - Weight 114.8 kg (253 lb) 11/10/2024 12:30 PM EDT Height 165.1 cm (5' 5 ) 11/10/2024 12:30 PM EDT Body Mass Index 42.1 11/10/2024 12:30 PM EDT documented in this encounter Patient Instructions * Patient Instructions* Steffanie Marte CMA - 11/10/2024 1:10 PM EDT Patient seen today by KISHA. Referred to opthalmology. Medical oncology and rad/onc. SS * Attachments The following attachments cannot be sent through Care Everywhere. * Quitting smoking for adults (Canadian) documented in this encounter Progress Notes * Andressa Garcia APRN-RUBINA - 11/10/2024 1:10 PM EDT Images from the original note were not included. [facility] [address] [place] [address], [address] [place] [address] * CHART NOTE ? 11/10/2024 Patient: Yamilka Yates 1970 [id number] Nurse Practitioner: Andressa Garcia CNP Physician: Juni Espinal MD, FAANS IMPRESSION / PLAN 54 y.o. female S/P synpative craniotomy excision tumor performed on 09/23/24 reporting lateral doublevision that began approximately 3 weeks postop. I will refer her to an prn occupational therapist to discuss the use of PRISM glasses and to our medical oncology team to discuss the use of chemotherapy and radiation. She will follow up as needed. HISTORY OF PRESENT ILLNESS 54 y.o. female presents to the clinic as a post-op S/P synpative craniotomy excision tumor performed on 09/23/24 reporting lateral double vision that began approximately 3 weeks postop. She is currently at the [facility] where she is doing PT 3 times per week with improvement. She advises she has been able to stand with a walker.She denies undergoing any radiation of chemotherapy, noting that she has not discussed these options with any physicians. Denies headaches, stroke symptoms, and seizure activity. SOCIAL HISTORY Social History Socioeconomic History Marital status: Single Spouse name: Not on file Number of children: Not on file Years of education: Not on file Highest education level: Not on file Occupational History Not on file Tobacco Use Smoking status: Some Days Current packs/day: 0.50 Types: Cigarettes Smokeless tobacco: Never Vaping Use Vaping status: Never Used Substance and Sexual Activity Alcohol use: Never Drug use: Yes Types: Marijuana Sexual activity: Defer Other Topics Concern Not on file Social History Narrative Not on file Social Drivers of Health Financial Resource Strain: High Risk (06/04/2023) Received from [facility] Overall Financial Resource Strain (CARDIA) Difficulty of Paying Living Expenses: Very hard Food Insecurity: No Food Insecurity (09/16/2024) Hunger Screening Food Insecurity - Worry: Never True Food Insecurity - Inability: Never True Transportation Needs: No Transportation Needs (08/28/2024) PRAPARE - Transportation Lack of Transportation (Medical): No Lack of Transportation (Non-Medical): No Physical Activity: Sufficiently Active (06/04/2023) Received from [facility] Exercise Vital Sign Days of Exercise per Week: 4 days Minutes of Exercise per Session: 40 min Stress: No Stress Concern Present (06/04/2023) Received from [facility] [place] of Occupational Health - Occupational Stress Questionnaire Feeling of Stress : Only a little Social Connections: Moderately Integrated (06/04/2023) Received from [facility] Social Connection and Isolation Panel [NHANES] Frequency of Communication with Friends and Family: Twice a week Frequency of Social Gatherings with Friends and Family: Once a week Attends Shinto Services: 1 to 4 times per year Active Member of Clubs or Organizations: No Attends Club or Organization Meetings: Never Marital Status: Interpersonal Safety: Not At Risk (08/28/2024) Humiliation, Afraid, Rape, and Kick questionnaire Fear of Current or Ex-Partner: No Emotionally Abused: No Physically Abused: No Sexually Abused: No Housing Instability: Low Risk (08/28/2024) Housing Instability Housing Instability: No REVIEW OF SYSTEMS ROS Positive Findings: Negative otherwise noted in the HPI PHYSICAL EXAMINATION Alert Oriented CN 2-12 intact No nystagmus No drift 4/5 generalized weakness No pathological reflex No Cerebellar signs Intact sensations DIAGNOSTIC CT brain 09/23/24: IMPRESSION: * Extensive postoperative changes of right pterional craniotomy and underlying mass resection. Residual tumor is difficult to assess on this noncontrast, portable imaging only technique. * Slight interval decrease in leftward midline shift. * Intracranial pneumocephalus, likely within expected limits for recent surgery. I interpreted the imaging studies independently and critical findings were anotated for the patient. Electronically Signed By: Andressa Garcia CNP in conjunction with Juni Espinal MD This note was created with the assistance of a speech recognition program with the goal of generating a timely record of the patient encounter. Inadvertent computerized forestry workers errors related to syntax, spelling, homophones, and/or inaudibility may be present. Scribe Statement: Scribed for and in the presence of Juni Espinal MD by Wayne Farris. Provider Statement: I, Juni Espinal MD personally performed the services described in the documentation, as scribedby Wayne Farris in my presence, and it is both accurate and complete Wayne Farris 11/10/24 0959 Wayne Farris 11/10/24 1308 JACQUELINE Goel 11/10/24 1420 documented in this encounter Plan of Treatment Scheduled Referrals Name Type Priority Associated Diagnoses Order Schedule [facility] [place] Outpatient Referral Routine [facility] Double vision 1 Occurrences starting 11/10/2024 until 11/10/2025 [facility] Medical Oncology [place], [place] Outpatient Referral Routine [facility]) Double vision 1 Occurrences starting 11/10/2024 until 11/10/2025 [facility] Radiation Oncology [place], [place] Outpatient Referral Routine [facility]) Double vision 1 Occurrences starting 11/10/2024 until 11/10/2025 documented as of this encounter Goals Goal Patient Goal Type Associated Problems Recent Progress Patient-Stated? Author SNF General Yes Amparo Lamas LSW Note: Evaluation of progress towards goal: SNF recommended, pt agreeable to SNF stating she is not able to care for self at home at this time documented as of this encounter Visit Diagnoses Diagnosis Brain tumor ([facility])- Primary Neoplasm of unspecified nature of brain Double vision Diplopia documented in this encounter Care Teams Manager Primary Care Relationship Specialty Start Date End Date Kristin Gracia APRN-CNP PCP - General Nurse Practitioner 08/28/24 documented as of this encounter
--- OUTSIDE RECORDS SUMMARY | 2024-11-12 10:41 | XMS_ITS | Encounter Summary ---
Author Organization [employer] tem Address [id number] [address] [place] [address] Care Team Providers Care Watch And Clock Repairer Name Role Phone HarveybereniceMamta perrya Tevin VIEIRAN-MASTER SCHEDULER Primary Care Provider Reason for Referral * Misc (Routine) - Pending Review Specialty Diagnoses / Procedures Referred By Contac t Referred To Contact Diagnoses GBM (glioblastoma multiforme) ([facility]) Procedures Patient education (specify) Richie Sandoval MD [address] [place] [address] Phone: tel: fax: Referral ID Status Reason Start Date Expiration Date V isits Requested Visits Authorized [id number] Pending Review 11/12/2024 11/12/2025 1 1 * Radiation Oncology (Routine) - Authorized Specialty Diagnoses / Procedures Referred By Contac t Referred To Contact Radiation Oncology Diagnoses GBM (glioblastoma multiforme) ([facility]) Procedures Initial Verification Sim Richie Sandoval MD [address] [place] [address] Phone: tel: fax: [facility] - Radiation Oncology [address] [place] [phone] Phone: tel: fax: Referral ID Status Reason Start Date Expiration Date V isits Requested Visits Authorized [id number] Authorized 11/13/2024 02/11/2025 30 30 * Consultation (Routine) - Pending Review Specialty Diagnoses / Procedures Referred By Contac t Referred To Contact Radiation Oncology Diagnoses Brain tumor (CMS-HCC) Double vision Andressa Garcia APRN-MASTER SCHEDULER [address] [address] Phone: tel: fax: Shen Ramey MD [address] [address] Phone: tel: fax: Referral ID Status Reason Start Date Expiration Date Visits Requested Visits Authorized [id number] Pending Review Specialty Services Required 11/10/2024 11/10/2025 1 1 Reason for Visit * Consultation (Routine) - Pending Review Specialty Diagnoses / Procedures Referred By Contac t Referred To Contact Radiation Oncology Diagnoses Brain tumor ([facility]) Double vision Andressa Garcia APRN-CNP [address] [address] Phone: tel: [place]: [place] [address] [place] [phone] Phone: tel: fax: Referral ID Status Reason Start Date Expiration Date Visits Requested Visits Authorized [id number] Pending Review Specialty Services Required 11/10/2024 11/10/2025 1 1 Encounter Details Date Type Department Care Team (Latest Contact Info) Description 11/12/2024 10:41 AM EDT - 11/12/2024 11:59 PM EDT [facility] [place] [address] GBM (glioblastoma multiforme) (CMS-HCC) (Primary Dx); Brain tumor ([facility] Double vision Discharge Disposition: Still a Patient Social History Tobacco Use Types Packs/Day Years Used Date Smoking Tobacco: Some Days Cigarettes Smokeless Tobacco: Never Alcohol Use Standard Drinks/Week Comments Never 0 (1 standard drink = 0.6 oz pur e alcohol) [facility] Utilities Answer Date Recorded In the past [...] PATIENT ASSESSMENT Date of Service: 11/12/2024 Location: [facility] ONCOLOGY - RADIATION ONCOLOGY [address] [place] [phone] Patient ID: Yamilka Yates : 1970 Yamilka [...] altered mental status type GBM (glioblastoma multiforme) ([facility]) HISTORY OF PRESENT ILLNESS: Ms. Yates is a 54 year old woman with history of Multiple sclerosis who recently presented with altered mental status. She was found to have a right temporal mass and midline shift. She was transferred to [facility] and underwent an MRI brain showed showed [...] Medical History: Diagnosis Date MS (multiple sclerosis) ([facility]) 2012 Past Surgical History: Procedure Laterality Date CARPAL TUNNEL RELEASE Left SHOULDER ARTHROSCOPY W/ ROTATOR CUFF REPAIR Left SYNAPTIVE CRANIOTOMY EXCISION TUMOR Right 09/23/2024 Performed by Juni Espinal MD at [facility] No Known Allergies Social History Tobacco [...] Orders Placed: Orders Placed This Encounter Procedures [facility] Radiation Oncology [place], [place] documented in this encounter Plan of Treatment Scheduled Orders Name Type Priority Associated Diagnoses Order Schedule Initial CT Simulation Specifics (for therapists) Radiation Oncology Routine GBM (glioblastoma multiforme) ([facility]) 1 Occurrences starting 11/12/2024 until 11/12/2025 Initial Verification Sim Radiation Oncology Routine GBM (glioblastoma multiforme) ([facility]) 1 Occurrences starting 11/12/2024 until 11/12/2025 Calculations Radiation Oncology Routine GBM (glioblastoma multiforme) ([facility]) 1 Occurrences starting 11/12/2024 until 11/12/2025 Devices Radiation Oncology Routine GBM (glioblastoma multiforme) ([facility]) 1 Occurrences starting 11/12/2024 until 11/12/2025 Continuing Physics Support Radiation Oncology Routine GBM (glioblastoma multiforme) ([facility]) 1 Occurrences starting 11/12/2024 until 11/12/2025 IMRT Radiation Oncology Routine GBM (glioblastoma multiforme) ([facility]) 1 Occurrences starting 11/12/2024 until 11/12/2025 CT Guidance ( XRT ) Radiation Oncology Routine GBM (glioblastoma multiforme) ([facility]) 1 Occurrences starting 11/12/2024 until 11/12/2025 Scheduled Referrals Name Type Priority Associated Diagnoses Order Schedule [facility] Radiation [place], [place] Outpatient Referral Routine Brain tumor ([facility]) Double vision Once for 1 [...] encounter Visit Diagnoses Diagnosis GBM (glioblastoma multiforme) ([facility] Primary Malignant neoplasm of brain, unspecified site Brain tumor ([facility]) Neoplasm of unspecified nature of brain Double vision Diplopia GBM (glioblastoma multiforme) ([facility]) Malignant neoplasm of brain, unspecified site documented in this encounter Care Teams Watch And Clock Repairer Relationship Specialty Start Date End Date Kristin Gracia, AIR CARRIER MAINTENANCE INSPECTOR-MASTER SCHEDULER PCP - General Nurse Practitioner 08/28/24 documented as of this encounter
--- OUTSIDE RECORDS SUMMARY | 2024-11-12 11:00 | XMS_ITS | Encounter Summary ---
Author Organization [employer] tem Address [facility] [place] [facility]-[id number] [address] [place] [address] Care Team Providers Care Medical Office Scheduler Name Role Phone Kristin Gracia DINING ROOM HELPER-[facility] Primary Care Provider Reason for Visit * Reason Comments New Patient * Consultation (Routine) - Pending Review Specialty Diagnoses / Procedures Referred By Atilio carbone Referred To Contact Oncology / Hematology and Oncology Diagnoses Brain tumor ([facility]) Double vision Andressa Garcia, ELAN-SQL DATABASE ADMINISTRATOR [address] [address] Phone: tel: fax: Alcon Khan MD [address] [place] [address] Phone: tel: fax: Referral ID Status Reason Start Date Expiration Date Visits Requested Visits Authorized [id number] Pending Review Specialty Services Required 11/10/2024 11/10/2025 1 1 Encounter Details Date Type Department Care Team (Late st Contact Info) Description 11/12/2024 11:00 AM EDT Office Visit [facility] - [facility] On[facility] [place] [address] Guillermo Lundberg MD [address] [place] [address] GBM (glioblastoma multiforme) (CMS-HCC) (Primary Dx) Social History Tobacco Use Types Packs/Day Years Used Date Smoking Tobacco: Some Days Cigarettes Smokeless Tobacco: Never Alcohol Use Standard Drinks/Week Comments Never 0 (1 standard drink = 0.6 oz pur e alcohol) [facility] Utilities Answer Date Recorded In the past [...] Sign Reading Time Taken Comments Blood Pressure 122/63 11/12/2024 10:55 AM EDT Pulse 82 11/12/2024 10:55 AM EDT Temperature 36.7 C (98.1 F) 11/12/2024 10:55 AM EDT Respiratory Rate 22 11/12/2024 10:5 5 AM EDT Oxygen Saturation 100% 11/12/2024 10: 55 AM EDT Inhaled Oxygen Concentration - - Weight 127.4 kg (280 lb 12.8 oz) 11/13/2024 1:32 PM EDT Height 162.6 cm (5' 4 ) 11/13/2024 1:32 PM EDT Body Mass Index 48.2 11/13/2024 1:32 PM EDT documented in this encounter Patient Instructions * Patient Instructions* Guillermo Lundberg MD - 11/12/2024 11:00 AM EDT Follow-up in 4 weeks to finalize treatment plan. The patient is deciding whether she wants to proceed with treatment. Plan for concurrent chemoradiation with Temodar documented in this encounter Progress Notes * Guillermo Lundberg MD - 11/12/2024 11:00 AM EDT Images from the original note were not included. [facility] 11/12/24 Yamilka Yates is a 54 y.o. year old female seen today in the oncology clinic. Chief Complaint Patient presents with New Patient History of Present Illness: Mrs. Yates is a 54 y.o. female who initially presented with generalized weakness and double vision 09/2024. According to EMS, patient lives in deplorable conditions including floors covered with feces and urine. Patient has not been getting out of her chair and has been voiding and defecating in her chair. Her son states she has been refusing to use a walker or a cane to ambulate. Her brain MRI showed: Right temporal mass midline shift to the opposite side measuring 14 mm. Extensive surrounding vasogenic edema and mass effect partially compressing the right lateral ventricle and completely compressing the third ventricle with dilatation of the left lateral ventricle. The lesion shows heterogeneous intense enhancement and measures 44.4 mm superior to inferior by 46.4 mm anterior to posterior. CT scan of the chest abdomen pelvis showed splenomegaly otherwise no other suspicious findings. 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 Negative for MGMT promoter methylation. The patient came to her clinic for my oncologic or opinion regarding further treatment. She is hereaccompanied by a caregiver from [facility]. She told me she is able to see better with much less double vision, only able to walk with walker for a few steps. She has no difficulty with her speech but has difficulty to use her phone. It seems like she does not know how to operate her phone. She has a son and a daughter. Past Medical History: Diagnosis Date MS (multiple sclerosis) ([facility]) 2012 Past Surgical History: Procedure Laterality Date CARPAL TUNNEL RELEASE Left SHOULDER ARTHROSCOPY W/ ROTATOR CUFF REPAIR Left SYNAPTIVE CRANIOTOMY EXCISION TUMOR Right 09/23/2024 Performed by Juni Espinal MD at [facility] Family History Problem Relation Age of Onset Stroke Mother Social History Socioeconomic History Marital status: Single Tobacco Use Smoking status: Some Days Current packs/day: 0.50 Types: Cigarettes Smokeless tobacco: Never Vaping Use Vaping status: Never Used Substance and Sexual Activity Alcohol use: Never Drug use: Yes Types: Marijuana Sexual activity: Defer Social Drivers of Health Financial Resource Strain: High Risk (06/04/2023) Received from [facility] Overall Financial Resource Strain (CARDIA) Difficulty of Paying Living Expenses: Very hard Food Insecurity: No Food Insecurity (11/10/2024) Hunger Screening Food Insecurity - Worry: Never True Food Insecurity - Inability: Never True Transportation Needs: No Transportation Needs (08/28/2024) PRAPARE - Transportation Lack of Transportation (Medical): No Lack of Transportation (Non-Medical): No Physical Activity: Sufficiently Active (06/04/2023) Received from [facility] Exercise Vital Sign Days of Exercise per Week: 4 days Minutes of Exercise per Session: 40 min Stress: No Stress Concern Present (06/04/2023) Received from [facility] [place] [place] of Occupational Health - Occupational Stress Questionnaire Feeling of Stress : Only a little Social Connections: Moderately Integrated (06/04/2023) Received from [facility] Social Connection and Isolation Panel [NHANES] Frequency of Communication with Friends and Family: Twice a week Frequency of Social Gatherings with Friends and Family: Once a week Attends Yazdanism Services: 1 to 4 times per year Active Member of Clubs or Organizations: No Attends Club or Organization Meetings: Never Marital Status: Interpersonal Safety: Not At Risk (08/28/2024) Humiliation, Afraid, Rape, and Kick questionnaire Fear of Current or Ex-Partner: No Emotionally Abused: No Physically Abused: No Sexually Abused: No Housing Instability: Low Risk (08/28/2024) Housing Instability Housing Instability: No No Known Allergies Medication List Accurate as of November 12, 2024 12:20 PM. If you have any questions, ask your nurse or doctor. Medications Continued This Visit acetaminophen 325 mg tablet Refills: 0 Dose: 650 mg Commonly known as: TYLENOL albuterol-budesonide 90-80 mcg/actuation HFA aerosol inhaler Refills: 0 bumetanide 2 mg tablet Refills: 0 Commonly known as: BUMEX busPIRone 7.5 mg tablet Refills: 0 Dose: 7.5 mg Commonly known as: BUSPAR dexAMETHasone 4 mg tablet Refills: 0 Commonly known as: DECADRON levETIRAcetam 500 mg tablet Refills: 0 Dose: 500 mg Signed by: Jesi Lewis APRN-SQL DATABASE ADMINISTRATOR 500 mg, oral, 2 times daily Commonly known as: KEPPRA levoFLOXacin 500 mg tablet Refills: 0 Dose: 500 mg Commonly known as: LEVAQUIN metoprolol tartrate 25 mg tablet Refills: 0 Dose: 25 mg Signed by: Jesi Lewis APRN-SQL DATABASE ADMINISTRATOR 25 mg, oral, 2 times daily Commonly known as: LOPRESSOR mirtazapine 15 mg disintegrating tablet Refills: 0 Dose: 15 mg Commonly known as: REMERON CANDI-TAB nystatin powder Refills: 0 Commonly known as: MYCOSTATIN potassium chloride 10 MEQ CR capsule Refills: 0 Commonly known as: KLOR-CON SPRINKLE sennosides-docusate sodium 8.6-50 mg Refills: 0 Dose: 2 tablet Signed by: Jesi Lewis APRN-SQL DATABASE ADMINISTRATOR 2 tablets, oral, Nightly Commonly known as: SENOKOT-S traZODone 50 mg tablet Refills: 0 Dose: 25 mg Commonly known as: DESYREL Review of Symptoms: Review of Systems ECO- Symptomatic; in bed >50% of the day Physical Exam: General: Well appearing, in no acute distress. Vitals: BP 122/63 Pulse 82 Temp 36.7 ??C (98.1 ??F) (Oral) Resp 22 Ht 165.1 cm (5' 5 ) SpO2 100% BMI 42.10 kg/m?? Body mass index is 42.1 kg/m??. Eyes: No icterus, no conjuctival erythema ENT: Pharyngeal mucosa was moist without exudate and inflammation or ulcerations. Tongue was midline and appeared normal.Gums were unremarkable. Lymph nodes: No palpable adenopathy Neck: Supple. There were no masses, tenderness. Trachea was midline. Respiratory: Respirations were non-labored. Lungs were clear to auscultation. There was no dullnessto percussion. Cardiac: Regular rate and rhythm, S1 and S2 sounds were normal. There were no rubs or gallops. Abdomen: Soft, non-tender, Nondistended. Bowel sounds audible in all four quadrants. There were no palpable masses. The liver and spleen were not enlarged. Extremities: There was no clubbing, Cyanosis, edema. Skin: There was no obvious rashes, bruising or ecchymosis. Back exam: No palpable tenderness was appreciated. Neurologic: There was no unilateral weakness. Mood and affect: Normal. Recent Imaging: No results found. Recent Labs: No results found for this or any previous visit (from the past 2 weeks). Diagnosis Problem list: Problem List Items Addressed This Visit Other GBM (glioblastoma multiforme) ([facility]) - Primary Impression: Brain glioblastoma, IDH-wildtype (BONDED STRUCTURES REPAIRER WHO grade 4), negative for MGMT promoter methylation. History of Multiple sclerosis Plan: I reviewed the final path from recent craniectomy. The patient's final path showed glioblastoma, WHO grade 4 consistent with GBM. Small subset of tumor cells Ki-67: Very high labeling index (greater than 50% within the most proliferative areas). I discussed the natural history of GBM, prognosis is poor especially her tumor is negative for MGMTpromoter methylation. Given the nature of this condition, the goals of treatment are palliative rather than curative. In light of this, I recommend concurrent chemoradiation with Temodar at a dose of 75 mg/m2 once daily for 42 days, in combination with radiotherapy. Additionally, I recommend prophylaxis with bactrim to prevent PCP infections. We will schedule a repeat MRI at the end of the concurrent chemoradiation period, and if there is no evidence of disease progression, the patient will start adjuvant Temodar treatment of 5 days per month for 6-12 cycles. To monitor progress, MRI scans will be repeated every three months. Common side effects of Temodar include nausea, cytopenia, and an increased risk of infection. The patient told me she needs to talk to her children to decide whether she wants to pursue treatment. I will see her back in 2-4 weeks to finalize treatment plan. Addendum: The patient decided to proceed with adjuvant treatment. Temodar prescription will be sent to specialty pharmacy once we have patient's accurate height and weight. Thank you. Addendum 11/13/2024 The patient's Temodar was calculated as 180 mg daily. Prescription sent to pharmacy. Guillermo Lundberg MD Please note that portions of this note were generated using voice recognition M*Modal dictation software. Although every effort was made to ensure the accuracy of this automated senior technologist, some errors in senior technologist may have occurred. CC: Patient Care Team: JACQUELINE Fernandes as PCP - General (Nurse Practitioner) Jacob Kaiser MD as Consulting Physician (Radiation Oncology) PCP:KRISTIN GRACIA Referring MD: Andressa Garcia APRN-* documented in this encounter Plan of Treatment Not on file documented as of this encounter Goals Goal Patient Goal Type Associated Problems Recent Progress Patient-Stated? Author SNF General Yes Amparo Lamas LSW Note: Evaluation of progress towards goal: SNF recommended, pt agreeable to SNF stating she is not able to care for self at home at this time documented as of this encounter Visit Diagnoses Diagnosis GBM (glioblastoma multiforme) ([facility])- Primary Malignant neoplasm of brain, unspecified site documented in this encounter Care Teams Medical Office Scheduler Relationship Specialty Start Date End Date Kristin Gracia APRN-CNP PCP - General Nurse Practitioner 08/28/24 documented as of this encounter
--- OUTSIDE RECORDS SUMMARY | 2024-11-13 09:48 | XMS_ITS | Encounter Summary ---
Author Organization [employer] tem Address [id number] [address] [place] [address] Care Team Providers Care Investment Broker Name Role Phone Kristin Gracia STERILE PROCESSING TECHNICIAN-MOBILE APPLICATION TESTER Primary Care Provider Reason for Referral * Diagnostic Imaging (Emergency) - Closed Specialty Diagnoses / Procedures Referred By Contac t Referred To Contact Radiology Diagnoses Glioblastoma ([facility]) Procedures MR brain with and without contrast Grey Yo MD [address] [place] [address] Phone: tel: fax: Referral ID Status Reason Start Date Expiration Date Visits Re quested Visits Authorized [id number] Closed 11/12/2024 11/12/2025 1 1 Reason for Visit * Diagnostic Imaging (Emergency) - Closed Specialty Diagnoses / Procedures Referred By Contac raf Referred To Contact Radiology Diagnoses Glioblastoma ([facility]) Procedures MR brain with and without contrast Grey Yo MD [address] [place] [address] Phone: tel: fax: Referral ID Status Reason Start Date Expiration Date Visits Re quested Visits Authorized [id number] Closed 11/12/2024 11/12/2025 1 1 Encounter Details Date Type Department Care Team (Late st Contact Info) Description 11/13/2024 9:48 AM EDT - 11/13/2024 11:02 AM EDT Hospital Encounter [facility] - MRI Imaging [address] [place] [phone] Grey Yo MD [address] [place] [address] Glioblastoma ([facility]) Discharge Disposition: Home Social History Tobacco Use Types Packs/Day Years Used Date Smoking Tobacco: Some Days Cigarettes Smokeless Tobacco: Never Alcohol Use Standard Drinks/Week Comments Never 0 (1 standard drink = 0.6 oz pur e alcohol) [facility] Utilities Answer Date Recorded In [...] 90-80 mcg/actuation HFA aerosol inhaler Albuterol 11/19 5 documented as of this encounter Plan of Treatment Not on file documented as of this encounter Goals Goal Patient Goal Type Associated Problems Recent Progress Patient-Stated? Author SNF General Yes Amparo Lamas, RAMIREZ Note: Evaluation of progress towards goal: SNF recommended, pt agreeable to SNF stating she is not able to care for self at home at this time documented as of this encounter Procedures Procedure Name Priority Date/Time Associated Diagnosis Comments MR BRAIN W WO CONT STAT 11/13/2024 10 :41 AM EDT Glioblastoma (CMS-HCC) documented in this encounter Results * MR brain with and without contrast (11/13/2024 10:41 AM EDT) Anatomical Region Laterality Modality Neuro, Head, Head and Neck, Neuro Covera N/A Magnetic Resonance 11/13/2024 11:2 6 AM EDT Narrative 11/13/2024 11:34 AM EDT EXAM: MR BRAIN W WO CONT TECHNIQUE: Multiplanar multisequence MR imaging of the brain was performed prior to and following the uneventful administration of intravenous contrast. CLINICAL HISTORY: Treatment planning. Glioblastoma. COMPARISON: 09/19/2024 FINDINGS: There are postsurgical changes compatible with interval right-sided craniotomy and resection of a previously seen complex right temporal lobe mass, compatible with high-grade DIGITAL PRODUCT MANAGER glioma. There is expected post surgical distortion of the right temporal lobe. There is a thick irregular rind of intrinsic T1 shortening lining the surgical resection site. There are superimposed small nodular foci of pathologic enhancement within the surgical resection cavity measuring 0.9 cm and 0.9 cm. These are viewed with suspicion for small foci of residual/recurrent glioma. Slight dural thickening and enhancement overlying the surgical resection cavity is compatible with a postsurgical in etiology. There is a small extra-axial fluid collection underlying the craniotomy site measuring up to 0.5 cm in thickness, presumed postsurgical in etiology. There is no significant mass effect upon the adjacent right temporal lobe. Previously seen extensive right cerebral vasogenic type edema has significantly improved in the interval. There remains smaller foci of right frontoparietal subcortical and deep white matter FLAIR hyperintensity. Foci of infiltrative nonenhancing neoplasm cannot be completely excluded. Table appearance of focal chronic left frontal lobe encephalomalacia and gliosis, compatible with an old infarct. There are additional scattered nonaggressive white matter changes of chronic ischemic small vessel disease. There is no restricted diffusion. There is no shift of the midline structures and the basal cisterns are widely patent. There is no evidence for ventricular outflow obstruction. The midline structures and craniocervical junction are within normal limits. The paranasal sinuses are well aerated. The mastoids are well aerated. IMPRESSION: 1. Interval right-sided craniotomy and resection of a complex right temporal lobe mass, compatible with high-grade DIGITAL PRODUCT MANAGER glioma. Expected postsurgical distortion is noted, as above. There remains a thick irregular rind of intrinsic T1 shortening lining the surgical resection cavity. There are small nodular foci of enhancement within the surgical resection cavity measuring 0.9 cm and 0.9 cm, suspicious for small foci of residual/recurrent glioma. 2. Significant interval improvement in previously seen diffuse right cerebral vasogenic edema. There are smaller residual foci of subcortical and deep white matter FLAIR hyperintensity at the right frontal parietal junction. The possibility of small foci of infiltrative nonenhancing neoplasm cannot be excluded. 3. No intracranial mass effect. 4. 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 There is no evidence for an acute infarct. Finalized by Sebastian Grayson MD on 11/13/2024 11:34 AM Procedure Note Sebastian Grayson MD - 11/13/2024 EXAM: MR BRAIN W WO CONT TECHNIQUE: Multiplanar multisequence MR imaging of the brain was performedprior to and following the uneventful administration of intravenouscontrast. CLINICAL HISTORY: Treatment planning. Glioblastoma. COMPARISON: 09/19/2024 FINDINGS: There are postsurgical changes compatible with interval right-sidedcraniotomy and resection of a previously seen complex right temporal lobemass, compatible with high-grade DIGITAL PRODUCT MANAGER glioma. There is expected postsurgical distortion of the right temporal lobe. There is a thick irregularrind of intrinsic T1 shortening lining the surgical resection site. There aresuperimposed small nodular foci of pathologic enhancement within thesurgical resection cavity measuring 0.9 cm and 0.9 cm. These are viewedwith suspicion for small foci of residual/recurrent glioma. Slight duralthickening and enhancement overlying the surgical resection cavity is compatible with apostsurgical in etiology. There is a small extra-axial fluid collectionunderlying the craniotomy site measuring up to 0.5 cm in thickness,presumed postsurgical in etiology. There is no significant mass effectupon the adjacent right temporal lobe. Previously seen extensive right cerebralvasogenic type edema has significantly improved in the interval. Thereremains smaller foci of right frontoparietal subcortical and deep whitematter FLAIR hyperintensity. Foci of infiltrative nonenhancing neoplasmcannot be completely excluded. Table appearance of focal chronic left frontal lobeencephalomalacia and gliosis, compatible with an old infarct. There areadditional scattered nonaggressive white matter changes of chronicischemic small vessel disease. There is no restricted diffusion. There isno shift of the midline structures and the basal cisterns are widely patent. There isno evidence for ventricular outflow obstruction. The midline structuresand craniocervical junction are within normal limits. The paranasalsinuses are well aerated. The mastoids are well aerated. IMPRESSION: 1. Interval right-sided craniotomy and resection of a complex righttemporal lobe mass, compatible with high-grade DIGITAL PRODUCT MANAGER glioma. Expectedpostsurgical distortion is noted, as above. There remains a thickirregular rind of intrinsic T1 shortening lining the surgical resectioncavity. There are small nodular foci of enhancement within the surgical resection cavity measuring0.9 cm and 0.9 cm, suspicious for small foci of residual/recurrentglioma. 2. Significant interval improvement in previously seen diffuse rightcerebral vasogenic edema. There are smaller residual foci of subcorticaland deep white matter FLAIR hyperintensity at the right frontal parietaljunction. The possibility of small foci of infiltrative nonenhancingneoplasm cannot be excluded. 3. No intracranial mass effect. 4. Stable focal chronic left frontal lobe encephalomalacia and gliosis,compatible with focal old infarct or injury. There is no evidence for anacute infarct. Finalized by Sebastian Grayson MD on 11/13/2024 11:34 AM Grey Yo MD IMG MRI ORDERABLES Final Res ult documented in this encounter Visit Diagnoses Diagnosis Glioblastoma (CMS-HCC) Malignant neoplasm of brain, unspecified site documented in this encounter Administered Medications Inactive Administered Medications - up to 3 most recent administrations Medication Order MAR Action Action Date Dose Rate Site gadoteridoL (PROHANCE) injection 10 mmol 20 mL 10 mmol (rounded from 11.48 mmol = 0.1 mmol/kg 114.8 kg), intravenous, Once in imaging, contrast, MRI, Starting on Sat11/13/24 at 0949, For 1 dose, VESICANT (RED), Indications: magnetic resonance imagingIndications:magnetic resonance imaging Given 11/13/2024 10:29 AM EDT 10 mmol sodium chloride 0.9 % flush 10 mL 10 mL, intravenous, Once in imaging, line care, MRI, Starting on Sat11/13/24 at 0950, For 1 dose Given 11/13/2024 10:28 AM EDT 10 mL documented in this encounter Care Teams Investment Broker Relationship Specialty Start Date End Date Kristin Gracia, STERILE PROCESSING TECHNICIAN-MOBILE APPLICATION TESTER PCP - General Nurse Practitioner 08/28/24 documented as of this encounter
--- OUTSIDE RECORDS SUMMARY | 2024-11-13 11:03 | XMS_ITS | Encounter Summary ---
Author Organization [facility] tem Address [id number] [address] [place] [address] Care Team Providers Care Contract Designer Name Role Phone Kristin Gracia APRN-GYM INSTRUCTOR Primary Care Provider Encounter Details Date Type Department Care Team (Latest Contact Info) Description 11/13/2024 11:03 AM EDT - 11/13/2024 12:07 PM EDT Hospital Encounter [facility] Oncology - Radiation Oncology [address] [place] [phone] Glioblastoma ([facility]) (Primary Dx); GBM (glioblastoma multiforme) ([facility]) Discharge Disposition: Still a Patient Social History Tobacco Use Types Packs/Day Years Used Date Smoking Tobacco: Some Days Cigarettes Smokeless Tobacco: Never Alcohol Use Standard Drinks/Week Comments Never 0 (1 standard drink = 0.6 oz pur e alcohol) [facility] Utilities Answer Date Recorded In the past 12 months has [employer], gas, oil, or water [employer] threatened to shut off services in your [...] from the original note were not included. [facility] Patient Education- Radiation Therapy to the Brain [...] rising, like Dove, Ivory, or Caress, or Bulgarian spring no antibacterial soap like Dial. To [...] increased fruit and vegetable intake. See the dietitian/recovery operator helper for specific and personalized recommendations Medications: You [...] Orientation with RN prior to CT/Sim (from [facility]) [facility] patient education video viewed and site [...] Fusion Radiation Oncology Routine GBM (glioblastoma multiforme) ([facility]) 1 Occurrences starting 11/13/2024 until 11/13/2025 [...] of this encounter Visit Diagnoses Diagnosis Glioblastoma ([facility])- Primary Malignant neoplasm of brain, unspecified site GBM (glioblastoma multiforme) (CMS-HCC) Malignant neoplasm of brain, unspecified site documented in this encounter Care Teams Contract Designer Relationship Specialty Start Date End Date Kristin Gracia, WET SANDER-GYM INSTRUCTOR PCP - General Nurse Practitioner 08/28/24 documented as of this encounter
--- OUTSIDE RECORDS SUMMARY | 2024-11-13 11:03 | XMS_ITS | Encounter Summary ---
[facility] tem Address [id number] [address] [place] [address] Care Team Providers Care Senior Microstrategy Developer Name Role Phone Kristin Gracia CD REACTOR OPERATOR-RESPIRATORY CARE FACULTY Primary Care Provider Encounter Details Date Type Department Care Team (Latest Contact Info) Description 11/13/2024 11:03 AM EDT - 11/13/2024 12:07 PM EDT Hospital Encounter [facility] Oncology - Radiation Oncology [address] [place] [phone] GBM (glioblastoma multiforme) ([facility]) Discharge Disposition: Home Social History Tobacco Use Types Packs/Day Years Used Date Smoking Tobacco: Some Days Cigarettes Smokeless Tobacco: Never Alcohol Use Standard Drinks/Week Comments Never 0 (1 standard drink = 0.6 oz pur e alcohol) [facility] Utilities Answer Date Recorded In the past 12 months has e [employer], gas, oil, or water [email or web address] threatened to shut off services in your [...] be visible to you in MyChart. Result [facility] Grey Yo MD IMG CT ORDERABLES Final Resu lt documented in this encounter Visit Diagnoses Diagnosis GBM (glioblastoma multiforme) ([facility]) Malignant neoplasm of brain, unspecified site documented in this encounter Care Teams Senior Microstrategy Developer Relationship Specialty Start Date End Date Kristin Gracia, CD REACTOR OPERATOR-RESPIRATORY CARE FACULTY PCP - General Nurse Practitioner 08/28/24 documented as of this encounter
--- OUTSIDE RECORDS SUMMARY | 2024-11-13 12:08 | XMS_ITS | Encounter Summary ---
Author Organization [employer] [facility] tem Address [id number] [address] [place] [address] Care Team Providers Care Gopherman Name Role Phone Harveyberenicevicky Kristin Abarca KELP GATHERER-PRINT PRODUCTION MANAGER Primary Care Provider Encounter Details Date Type Department Care Team (Latest Contact Info) Description 11/13/2024 12:08 PM EDT - 11/13/2024 11:59 PM EDT Hospital Encounter [facility] Oncology - Radiation Oncology [address] [place] [phone] Discharge Disposition: Still a Patient Social History Tobacco Use Types Packs/Day Years Used Date Smoking Tobacco: Some Days Cigarettes Smokeless Tobacco: Never Alcohol Use Standard Drinks/Week Comments Never 0 (1 standard drink = 0.6 oz pur e alcohol) [facility] Utilities Answer Date Recorded In the past 12 months has e [employer], gas, oil, or water company threatened to [...] Take 2 tablets by mouth nightly. 09/28/2024 temozolomide (TEMODAR) 180 MG chemo capsuleIndications:G BM (glioblastoma multiforme) (CMS-HCC) Take 1 capsule by mouth daily 42 capsule 11/13/2024 traZODone (DESYREL) 50 mg tablet Take 0.5 [...] 11/13/2024 1:13 PM EDT GBM (glioblastoma multiforme) ([facility]) documented in this encounter Results * CT Oncology (11/13/2024 1:13 PM EDT) Narrative SYSTEMGENERATED, DOCUMENTATION - 11/13/2024 1:13 PM EDT This order was used for Radiation Treatment planning, auto-finalized, and does not contain a result. For full report details, please reach out to your physician. Effective 10/04/2020 this image will be visible to you in MyChart. Grey Yo MD IMG CT ORDERABLES Final Resu lt documented in this encounter Visit Diagnoses Not on filedocumented in this encounter Care Teams Gopherman Relationship Specialty Start Date End Date Kristin Gracia, KELP GATHERER-PRINT PRODUCTION MANAGER PCP - General Nurse Practitioner 08/28/24 documented as of this encounter
--- OUTSIDE RECORDS SUMMARY | 2024-11-24 08:07 | XMS_ITS ---
Author Name Auto Generated Organization OHIP Support Name Relationship Address Phone JAY GHOTRA JR Next of Kin Unknown Unavailabl e JAY GHOTRA JR Next of Kin Unknown Unavailabl e CARLO GHOTRA JRNE Next of Kin Unknown Unavailabl e CARLO GHOTRA JRNE Next of Kin Unknown Unavailabl e CARLO GHOTRA JRNE Next of Kin Unknown Unavailabl e FAYE GHOTRA JRAYNE Next of Kin Unknown Unavailabl e BRANDIN ESPINOZA, JAY Next of Kin Unknown Unavailabl e BRANDIN ESPINOZA, JAY Next of Kin Unknown Unavailabl e Johanne Vasquez Next of Kin Unknown + JAY GHOTRA JR Next of Kin Unknown Unavailabl e FAYE GHOTRA JRAYNE Next of Kin Unknown Unavailabl e CARLO GHOTRANE Next of Kin Unknown Unavailable CARLO GHOTRA JRNE Next of Kin Unknown Unavailabl e FAYE GHOTRA JRAYNE Next of Kin Unknown Unavailabl e FAYE GHOTRA JRAYNE Next of Kin Unknown Unavailabl e FAYE GHOTRA JRAYNE Next of Kin Unknown Unavailabl e BRANDIN ESPINOZA, JAY Next of Kin Unknown Unavailabl e Johanne Vasquez Next of Kin Unknown + JAY GHOTRA JR. Next of Kin [address] [place] [address] + ~(419 JAY GHOTRA JR. Next of Kin [address] [place] [address] + ~(419 CARLO GHOTRA JR.NE Next of Kin [address] [place] [address] + ~(419 BRANDIN ESPINOZA.CARLONE Next of Kin [address] [place] [address] + ~(419 CARLO GHOTRA JR.NE Next of Kin [address] [place] [address] + ~(419 CARLO GHOTRA JR.NE Next of Kin [address] [place] [address] + ~(419 CARLO GHOTRA JR.NE Next of Kin [address] [place] [address] + ~(419 CARLO GHOTRA JR.NE Next of Kin [address] [place] [address] + ~(419 CARLO GHOTRA JR.NE Next of Kin [address] [place] [address] + ~(419 CARLO GHOTRA JR.NE Next of Kin [address] [place] [address] + ~(419 CARLO GHOTRA JR.NE Next of Kin [address] [place] [address] + ~(419 CARLO GHOTRA JR.NE Next of Kin [address] [place] [address] + ~(419 CARLO GHOTRA JR.NE Next of Kin [address] [place] [address] + ~(419 CARLO GHOTRA JR.NE Next of Kin [address] [place] [address] + ~(419 BRANDIN JAY Next of Kin [address] [place] [address] + JAY GHOTRA JR. Next of Kin [address] [place] [address] + ~(419 JAY GHOTRA JR. Next of Kin [address] [place] [address] + ~(419 PEDRO, JOHANNE Next of Kin [address] [place] [address] + PEDROJOHANNE Next of Kin [address] [place] [address] + CHANDANALeeJOHANNE Next of Kin [address] [place] [address] + CHANDANALeeJOHANNE Next of Kin [address] [place] [address] + Care Team Providers Care Cast Associate Name Role Phone SHERRIE CONNELLY Attending Unavailabl e AICHHOLZ, FRED Attending Unavailable AICHHOLZ, FRED Attending Unavailable BROOKS, ELIAZAR T Attending Unavailable AICHHOLZ, FRED Attending Unavailable AICHHOLZ, FRED Attending Unavailable BROOKS, ELIAZAR T Attending Unavailable BROOKS, ELIAZAR T Referring Unavailable AICHHOLZ, FRED Attending Unavailable BROOKS, ELIAZAR T Referring Unavailable BROOKS, ELIAZAR T Attending Unavailable BROOKS, ELIAZAR T Referring Unavailable SONU KUMAR Attending Unavailable BROOKS, ELIAZAR T Referring Unavailable LIYAHALIRIOH Attending Unavailable AICHHOLZ, FRED Attending Unavailable LIYAH RANDY Attending Unavailable BROOKS, ELIAZAR T Referring Unavailable BROOKS, ELIAZAR T Attending Unavailable LIYAH RANDY Attending Unavailable BROOKS, ELIAZAR T Referring Unavailable LIYAH, RANDY Attending Unavailable BROOKS, ELIAZAR T Referring Unavailable YAHAIRA RUFF Attending Unavailable AICHHOLZ, FRED Attending Unavailable AICHHOLZ, FRED J Primary Care Unavailable BETOKENROY Abbasi Admitting Unavailable ONLY), [facility] (INPATIENT Consult ing Unavailable СЕРГЕЙ LYNCH Attending Unavailable MACIEJ, MUNIRA Attending Unavailable MUNIRA HARO Referring Unavailable AICHHOLZ, FRED J Primary Care Unavailable MUNIRA HARO Attending Unavailable MUNIRA HARO Referring Unavailable AICHHOLZ, FRED J Primary Care Unavailable ADONAY CASTILLO Attending Unavailable AICHHOLZ, FRED J Referring Unavailable AICHHOLZ, FRED J Primary Care Unavailable AICHHOLZ, FRED J Primary Care Unavailable MIRIAM CHURCH Consulting Unavailable ANDREW JUNG Admitting Unavailable JULIO FERNANDEZ Attending Unavailable JUNI ESPINAL Consulting Unavailable [facility], INCDread Consulti aline Unavailable CARDIOLOGY, [facility] Consulting Unavailable SKYE LARA Consulting Unavailab le AICHHOLZ, FRED J Referring Unavailable AICHHOLZ, FRED J Primary Care Unavailable AICHHOLZ, FRED J Referring Unavailable AICHHOLZ, FRED J Primary Care Unavailable AICHHOLZ, FRED J Referring Unavailable AICHHOLZ, FRED J Primary Care Unavailable REJI AWAD Attending Unavailable MEAGHAN MENDOZA Attending Unavailable REJI AWAD Referring Unavailable AICHHOLZ, FRED J Primary Care Unavailable AICHHOLZ, FRED J Referring Unavailable AICHHOLZ, FRED J Primary Care Unavailable RICHIE SANDOVAL Attending Unavailable RICHIE SANDOVAL Referring Unavailable AICHHOLZ, FRED J Primary Care Unavailable AICHHOLZ, FRED J Referring Unavailable AICHHOLZ, FRED J Primary Care Unavailable AICHHOLZ, FRED J Referring Unavailable AICHHOLZ, FRED J Primary Care Unavailable RICHIE SANDOVAL Referring Unavailable AICHHOLZ, FRED J Primary Care Unavailable Tripp Gruber Admitting Unavailable Tripp Gruber Attending Unavailable Alonzo Holguin Attending Unavailable Alonzo Holguin Admitting Unavailable Eliazar Brooks Referring Unavailable BrooksEliazar T Admitting Unavailable August Primary Care Unavailable Eliazar Brooks Attending Unavailable SARAH MATTHEWS Attending Unavailable SARAH MATTHEWS Attending Unavailable Brooks, Eliazar T Referring Unavailable Brooks, Eliazar T Admitting Unavailable BrooksEliazar T Attending Unavailable Zbigniew Eliazar T Referring Unavailable August Primary Care Unavailable Zbigniew Eliazar T Admitting Unavailable Eliazar Brooks T Attending Unavailable SHANICE GIMENEZ Attending Unavailable SHANICE GIMENEZ Admitting Unavailable PROBLEMS DATE TYPE CONDITION / CODE ATTENDING STATUS [facility] 11/12/2024 Unknown Malignant neopla sm of brain, unspecified / C71.9(ICD-10) NA [facility] 11/12/2024 Unknown New Patient / FREETEXT(AOF) MEAGHAN MENDOZA [facility] 11/10/2024 Unknown 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 11/10/2024 Unknown Follow-up / FREETEXT(AOF) [facility] 09/19/2024 Unknown Pain, unspecifie d / R52(ICD-10) [place] [facility] [place]2024 Unknown Altered mental s tatus, unspecified / R41.82(ICD-10) [facility] Acute kidney myron lure, unspecified / N17.9(ICD-10) REBECCA [facility] 09/18/2024 Unknown Other specified disorders of brain / G93.89(ICD-10) REBECCA [facility] 09/18/2024 Unknown Other specified postprocedural states / Z98.890(ICD-10) REBECCA [facility] 09/18/2024 Unknown Altered Mental S tatus / FREETEXT(AOF) REBECCA [facility] 09/18/2024 Unknown Evaluation of Ab normal Diagnostic Test / FREETEXT(AOF) JULIO FERNANDEZ [facility] 09/16/2024 Unknown Other specified dermatitis / L30.8(ICD-10) ADONAY CASTILLO [facility] 09/16/2024 Unknown Pressure ulcer o f left buttock, stage 2 / L89.322(ICD-10) JONATHAN, ADONAY P [facility] 09/16/2024 Unknown Wound Check / FREETEXT(AOF) ADONAY CASTILLO [facility] 08/28/2024 Unknown Weakness / R53.1(ICD-10) [facility] 08/28/2024 Unknown Rhabdomyolysis / M62.82(ICD-10) [facility] 08/28/2024 Unknown Cardiac arrhythm ia, unspecified / I49.9(ICD-10) [facility] 08/28/2024 Unknown Weakness - Gener alized / FREETEXT(AOF) [facility] 08/28/2024 Unknown Fall / FREETEXT(AOF) Tevin LYNCH [facility] 08/28/2024 Unknown EMS / UNK(Unknown) [facility] PROCED[facility] No Procedure Records Found RESULTS PATIENT EDUCATION Observed: 11/24/2024 9:06 AM Status: F Source: [facility] Patient Education Obstetrics and Gynecology Acute Urinary Retention, Female Acute urinary retention is when a person cannot pee (urinate) at all, or can only pee a little. This can come on all of a sudden. If it is not treated, it can lead to kidney problems or other serious problems. What are the causes? A problem with the tube that drains the bladder (urethra). ??? Problems with the nerves in the bladder. ??? The organs in the area between your hip bones (pelvis) slipping out of place (prolapse). ??? Tumors. ??? The of a baby through the vagina. ??? An infection. ??? Having trouble pooping (constipation). ??? Certain medicines. What increases the risk? Women over age 50 are more at risk. Other conditions also can increase risk. These include: ??? Diseases, such as multiple sclerosis. ??? Injury to the spinal cord. ??? Diabetes. ??? A condition that affects the way the brain works, such as dementia. ??? Holding back urine due to trauma or because you do not want to use the bathroom. ??? History of not being able to pee or peeing too little. ??? Having had surgery in the area between your hip bones. What are the signs or symptoms? Trouble peeing. ??? Pain in the lower belly. How is this treated? Treatment for this condition may include: ??? Medicines. ??? Placing a thin, germ-free tube (catheter) into the bladder to drain pee out of the body. ??? Therapy to treat mental health conditions. ??? Treatment for conditions that may cause this. If needed, you may be treated in the hospital for kidney problems or to manage other problems. Follow these instructions at home: Medicines ??? Take husf-huj-jfgkvyj and prescription medicines only as told by your doctor. Ask your doctor what medicines you should stay away from. ??? If you were given an antibiotic medicine, take it as told by your doctor. Do not stop taking it even if you start to feel better. General instructions ??? Do not smoke or use any products that contain nicotine or tobacco. If you need help quitting, ask your doctor. ??? Drink enough fluid to keep your pee pale yellow. ??? If you were sent home with a tube that drains the bladder, take care of it as told by your doctor. ??? Watch for changes in your symptoms. Tell your doctor about them. ??? If told, keep track of changes in your blood pressure at home. Tell your doctor about them. ??? Keep all follow-up visits. Contact a doctor if: ??? You have spasms in your bladder that you cannot stop. ??? You leak pee when you have spasms. Get help right away if: ??? You have chills or a fever. ??? You have blood in your pee. ??? You have a tube that drains pee from the bladder and these things happen: ? The tube stops draining pee. ? The tube falls out. Summary ??? Acute urinary retention is when you cannot pee at all or you pee too little. ??? If this is not treated, it can cause kidney problems or other serious problems. ??? If you were sent home with a tube (catheter) that drains pee from the bladder, take care of it as told by your doctor. ??? Watch for changes in your symptoms. Tell your doctor about them. This information is not intended to replace advice given to you by your health care provider. Make sure you discuss any questions you have with your health care provider. Document Revised: 01/25/2021 Document Reviewed: 01/25/2021 [employer] Patient Education ? 2023 [employer]. AMBULATORY VISIT SUMMARY Observed: 11/24 8:07 AM Status: F Source: [facility] Ambulatory Visit Summary YAMILKA VASQUEZ :1970 Visit Date:11/24/2024 Ambulatory Visit Instructions Your Diagnosis Urinary retention UTI (urinary tract infection) Your Care Team Attending Physician - SARAH MATTHEWS PA-C Primary Care Physician - DIXIE BENITEZ, SARY Lantigua This Is Your Medications List acetaminophen (Tylenol) acetaminophen-oxycodone (Percocet 5 mg-325 mg oral tablet) busPIRone (busPIRone 7.5 mg oral tablet) dexamethasone (dexamethasone 1.5 mg oral tablet) dexamethasone (dexamethasone 2 mg oral tablet) dexamethasone (dexamethasone 4 mg Tab) escitalopram (escitalopram 10 mg Tab) levetiracetam (levetiracetam 500 mg Tab) metoprolol (Metoprolol tartrate 25 mg Tab) mirtazapine (mirtazapine 15 mg Tab) naproxen (Naprosyn 500 mg Tab) ocrelizumab (Ocrevus 300 mg/10 mL intravenous solution) polycarbophil (Fiber Tabs) senna (senna (sennosides) 3 mg oral tablet, chewable) trazodone (traZODONE 50 mg Tab) Procedures Performed Arthroscopy of shoulder (02/10/2024), Carpal tunnel, Ectopic , Tubal ligation. Discharge Vitals Temperature (Oral) 36.9 ???C Heart Rate (Peripheral) 78 Respiratory Rate 16 Blood Pressure 80/54 Height 169 cm Height 67 in Weight 122.2 kg Weight 269.405 lb BMI 42.79 Medications What How Much When Why Instructions Unchanged acetaminophen (Tylenol) 1,000 Milligram By Mouth Every 6 hours as needed for as needed for pain Unchanged acetaminophen-oxycodone (Percocet 5 mg-325 mg oral tablet) See instructions Impingement of left shoulder Take one to two oral every 4 hours as needed for shoulder surgical pain. Unchanged busPIRone (busPIRone 7.5 mg oral tablet) 1 Tablets By Mouth 3 times a day Unchanged dexamethasone (dexamethasone 1.5 mg oral tablet) By Mouth 2 times a day Unchanged dexamethasone (dexamethasone 2 mg oral tablet) By Mouth 2 times a day Unchanged dexamethasone (dexamethasone 4 mg Tab) By Mouth 2 times a day Unchanged escitalopram (escitalopram 10 mg Tab) 1 Tablets By Mouth Every day Unchanged levetiracetam (levetiracetam 500 mg Tab) 1 Tablets By Mouth 2 times a day Unchanged metoprolol (Metoprolol tartrate 25 mg Tab) 1 Tablets By Mouth 2 times a day Unchanged mirtazapine (mirtazapine 15 mg Tab) 1 Tablets Unchanged naproxen (Naprosyn 500 mg Tab) 1 Tablets By Mouth 2 times a day Unchanged ocrelizumab (Ocrevus 300 mg/ 10 mL intravenous solution) Every 6 months Unchanged polycarbophil (Fiber Tabs) By Mouth 4 times a day Unchanged senna (senna (sennosides) 3 mg oral tablet, chewable) Chewed Every day Unchanged trazodone (traZODONE 50 mg Tab) 0.5 Tablets By Mouth Once a day (at bedtime) Allergies No Known Allergies Problems Ongoing - Any problem that you are currently receiving treatment for. Bipolar I disorder Depressive disorder Essential hypertension Generalized anxiety disorder Hyperlipoproteinemia Menopause Mini stroke Morbid obesity with BMI of 40.0-44.9, adult MS - Multiple sclerosis Smoker UTI (urinary tract infection) Patient Survey You may receive a survey via text or e-mail asking about your office visit. Please share your experience with us by completing your survey. We appreciate your feedback and thank you for choosing us for your care. Patient Portal You may access all of your results and other medical record information on our secure patient portal. If you are not signed up for this yet, please contact [employer] at [phone] to get signed up today. Language Information Language assistance services are available as needed. UROLOGY OFFICE/CLINIC NOTE Observed: 12/2024 8:07 AM Status: F Source: [facility] Urology Office/Clinic Note Chief Complaint 6 wk f/u HPI Staff 54 year old female here for 6 week follow up for urinary retention Review of Systems PHQ Score Initial Depression Screen Score: 0 SCORE No fever, chills, malaise, myalgia. No abdominal pain, flank pain, gross hematuria. No dysuria, cloudy urine, urgency/frequency. Physical Exam Vitals & Measurements T: 36.9 ???C(Oral) HR: 78(Peripheral) RR: 16 BP: 80/54 HT: 169 cm HT: 67 in WT: 122.2 kg WT: 269.405 lb BMI: 42.79 General: nontoxic, NAD Mouth: moist mucosa Lungs: normal respiratory effort Cardio: regular rate, good distal perfusion Abdomen: +distended SP Skin: No rashes or suspicious lesions Assessment/Plan 1. Urinary retention (R33.9: Retention of urine, unspecified) 10/09/24: Hx Transferred from [facility] to [facility] on 09/18/24 d/t BRANDON, brain mass w shift and AMS. 1.5L retention upon admission w BRANDON ([employer] 15.68) bilat hydro on US, improved to 0.74 on 09/28/24. ECF attempted void trial on 10/02/24 but pt unable to void so Ayala replaced. She's currently working w PT to [...] on CT 09/20/24. Denies hx kidney stones. Maintain Ayala. ECF to replace in 4 wks. F/u 6 wks. If mobility improved, good po intake, normal BMs can consider another void trial at that time. SINCE LAST OV: Admitted at [facility] 10/17-10/22 w Sepsis, NSTEMI, Heart Failure. Urine Cx showed Proteus. Ayala was dc'd on day of discharge (unclear why). Treated for another UTI 11/10 (Levaquin). Per heme/onc note (Meaghan Mendoza) pt starting chemo/radiation with palliative goals. Started pt on daily Bactrim #60. Seeing nephrology d/t acute on CKD. 11/07 [employer] 3.05 TODAY: PVR 927ml. Pt does not have sensation of incomplete emptying. Comfortable. Voiding, mostly in brief. Advised we need to replace Ayala vs start CIC. Pt prefers indwelling Ayala. Order written for ECF to replace upon return to facility today and maintain w Q4wk changes. Ordered: 1126F Pain severity quantified; no pain present 53567 Measure Post Void residual urine and/or bladder capacity by US- non- imaging Current tobacco non-user 1036F Functional status assessed 1170F Medication list documented in medical record 1159F Most recent diastolic blood pressure <80 mm Hg 3078F Review of all meds by a prescribing practitioner or clinical pharmacist documented in EHR 1160F Systolic BP <130 mm Hg (Most Recent) 3074F 2. UTI (urinary tract infection) (N39.0: Urinary tract infection, site not specified) See #1. Unable to give sample today but denies UTI sx. On suppressive abx currently. Follow-up With When Contact Information BYRON FIGUEROA, SARAH Pedraza, URL In 3 months [address] [place] [address] Additional Instructions: Patient Education Acute Urinary Retention, Female, Acft-ie-Ftpy Problem List/Past Medical History Ongoing Bipolar I disorder Depressive disorder Essential hypertension Generalized anxiety disorder Hyperlipoproteinemia Menopause Mini stroke Morbid obesity with BMI of 40.0-44.9, adult MS - Multiple sclerosis Smoker UTI (urinary tract infection) Historical No qualifying data Procedure/Surgical History Arthroscopy of shoulder (02/10/2024), Carpal tunnel, Ectopic , Tubal ligation. Medications busPIRone 7.5 mg oral tablet, 7.5 mg= 1 tab(s), Oral, TID dexamethasone 1.5 mg oral tablet, Oral, BID dexamethasone 2 mg oral tablet, Oral, BID dexamethasone 4 mg Tab, Oral, BID escitalopram 10 mg Tab, 1 tab(s), Oral, Daily Fiber Tabs, Oral, QID levetiracetam 500 mg Tab, 500 mg= 1 tab(s), Oral, BID Metoprolol tartrate 25 mg Tab, 25 mg= 1 tab(s), Oral, BID mirtazapine 15 mg Tab, 15 mg= 1 tab(s) Naprosyn 500 mg Tab, 1 tab(s), Oral, BID Ocrevus 300 mg/10 mL intravenous solution, q6mo Percocet 5 mg-325 mg oral tablet, See Instructions senna (sennosides) 3 mg oral tablet, chewable, Chewed, Daily traZODONE 50 mg Tab, 25 mg= 0.5 tab(s), Oral, Once a day (at bedtime) Tylenol, 1000 mg, Oral, q6hr, PRN Allergies No Known Allergies Social History Alcohol - Denies Alcohol Use, 02/05/2024 Never, 10/09/2024 Substance Abuse - Denies Substance Abuse, 06/30/2016 Current. Marijuana. Daily., 10/13/2024 Tobacco - Denies Tobacco Use, 02/05/2024 Former smoker, quit more than 30 days ago Tobacco Use:. Never Smokeless Tobacco Use:. Cigarettes, Yes, 11/24/2024 Result Comment: Electronical ly Signed By: SARAH MATTHEWS PA-C.br\Date and Time Signed: 11/24/24 09:07 EDT MR BRAIN W WO CONT Observed: 11/13/2024 9:49 AM Status: COMPLETED Source: [facility] MR BRAIN W WO CONT EXAM: MR BRAIN W WO CONT TECHNIQUE: Multiplanar multisequence MR imaging of the brain was performed prior to and following the uneventful administration of intravenous contrast. CLINICAL HISTORY: Treatment planning. Glioblastoma. COMPARISON: 09/19/2024 FINDINGS: There are postsurgical changes compatible with interval right-sided craniotomy and resection of a previously seen complex right temporal lobe mass, compatible with high-grade OPTIM[employer]INE[employer] glioma. 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 Expected postsurgical distortion is noted, as [...] Sebastian Grayson MD on 11/13/2024 11:34 AM URINE CULTURE Observed: 10/17/2024 9:45 AM Status: F Source: [facility] ORGANISM: Proteus mirabilis (O:PROMIR) [place] Count >100,000 Aerobic ROSE Charge ([id number]) SUSCEPTIBILITY ORGANISM: O:PROMIR ANTIBIOTIC INTERPRETATION ROSE Amikacin S <16 Amoxacillin/K Clavulanate S <8 Ampicillin S <8 Ampicillin/Sulbactam S <4 Aztreonam S <4 Cefazolin S <2 Cefepime S <2 Ceftazidime S <1 Ceftazidime/Avibactam S <4 Ceftolozane/Tazobactam S <2 Ceftriaxone S <1 Cefuroxime S <4 Ciprofloxacin S <0.25 Ertapenem S <0.5 Gentamicin S <2 Levofloxacin S <0.5 Meropenem S <1 Meropenem/Vaborbactam S <2 Piperacillin/Tazobactam S <8 Tobramycin S 4 Trimethoprim/Sulfamethoxazole S <0.5 S = SUSCEPTIBLE I = [...] RESISTANT TO ALL B-LACTAM DRUGS. PERFORMED BY: [place] [address] PATHOLOGIST BUTTON CUTTING MACHINE OPERATOR ADILENE GAMINO M.D. Performed By: #### [facility] #### [address] PATIENT EDUCATION Observed: 10/09/2024 11:40 AM Status: F Source: [facility] Patient Education Obstetrics and Gynecology Acute Urinary [...] these instructions at home: Medicines ??? Take iblc-yzm-vyxticf and prescription medicines only as told by [...] provider. Document Revised: 01/25/2021 Document Reviewed: 01/25/2021 [employer] Patient Education ? 2023 [employer]. UROLOGY OFFICE/CLINIC NOTE Observed: 10:12 AM Status: F Source: [facility] Urology Office/Clinic Note Chief Complaint referral, [place], urinary retention after brain surgery HPI Staff 54 yr old female here due to Urinary retention. Pt has Ayala. Denies any issues w ayala. No gross hematuria. No pain. No leaking around ayala. 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 Pt is her own medical decision [...] retention (R33.9: Retention of urine, unspecified) Hx MS. Transferred from [facility] to [facility] on 09/18/24 d/t BRANDON, brain mass w shift and AMS. 1.5L retention upon admission w BRANDON ([employer] 15.68) bilat hydro on US, improved to 0.74 on 09/28/24. ECF attempted void trial on 10/02/24 but pt unable to void so Ayala replaced. She's currently working w PT to [...] CT 09/20/24. Denies hx kidney stones. -Maintain ayala. ECF to replace in 4 wks. -F/u 6 wks. If mobility improved, good po intake, normal BMs can consider another void trial at that time. Ordered: Body Mass Index (BMI) documented 3008F Current tobacco non-user 1036F Depression Screening Negative 3352F E&M of New Patient Moderate 45-59 Min 07837 Influenza immunization status assessed 1030F Medication list [...] Recent) 3074F Follow-up With When Contact Information SARAH MATTHEWS PA-C, LEODAN Within 6 weeks [address] [place] [address] Business (1) Additional Instructions: Patient [...] Never Smokeless Tobacco Use:. Cigarettes, Yes, 10/09/2024 Result Comment: Electronical ly Signed By: SARAH MATTHEWS PA-C\.br\Date and Time Signed: 10/09/24 11:41 EDT AMBULATORY VISIT SUMMARY Observed: 10/09 10:12 AM Status: F Source: [facility] Ambulatory Visit Summary YAMILKA VASQUEZ :1970 Visit Date:10/09/2024 Ambulatory Visit Instructions Your Diagnosis Urinary retention Your Care Team Attending Physician - SARAH MATTHEWS PA-C Primary Care Physician - SARY COLIN MD This Is Your Medications List acetaminophen (Tylenol) acetaminophen-oxycodone (Percocet 5 mg-325 mg oral tablet) busPIRone [...] needed for as needed for pain Unchanged acetaminophen-oxycodone (Percocet 5 mg-325 mg oral tablet) See [...] you for choosing us for your care. [place] SWALLOW MOTILITY FUNCTION Observed: 09/28/2024 2:38 PM Status: COMPLETED Source: [facility] FL SWALLOW MOTILITY FUNCTION FL SWALLOW MOTILITY [...] Jayla Arroyo MD on 09/28/2024 3:08 PM CBC WITH AUTO DIFFERENTIAL Collected: 0 09/28/2024 6:43 AM Status: COMPLETED Source: [facility] TYPE CODE TESTS RESULT OUT OF RANGE REFERENCE UNITS LAB WBC WBC 15.5 High 4-11 x10E9/L LAB RBC RBC COUNT 4.27 3.8-5.2 X10E12/L LAB HGB HEMOGLOBIN 11.5 Low 11.7-15.5 g/dL LAB HCT HEMATOCRIT 35.5 35-47 % LAB MCV MCV 83 80-100 fL LAB MCH MCH 27.0 27-34 pg LAB MCHC MCHC 32.5 32-36 g/dL LAB RDW RDW 16.4 High 11.5-15 % LAB PLTC PLATELET COUNT 115 Low 150-450 X10E9/L LAB MPV MPV 10.7 7-12 fL LAB NEUT NEUTROPHILS RELATIVE PERCENT BY AUTOMATED COUNT 80.2 % Result Comment: This is an a ppended report. These results have been appended to a previously preliminary verified report. LAB LYMP LYMPHOCYTES RELATIVE PERCENT BY AUTOMATED COUNT 8.3 % Result Comment: This is an a ppended report. These results have been appended to a previously preliminary verified report. LAB MONO MONOCYTES RELATIVE PERCENT BY AUTOMATED COUNT 11.3 % Result Comment: This is an a ppended report. These results have been appended to a previously preliminary verified report. LAB EOS EOSINOPHILS RELATIVE PERCENT BY AUTOMATED COUNT 0.1 % Result Comment: This is an a ppended report. These results have been appended to a previously preliminary verified report. LAB BASO BASOPHILS RELATIVE PERCENT BY AUTOMATED COUNT 0.1 % Result Comment: This is an a ppended report. These results have been appended to a previously preliminary verified report. LAB ANEUT NEUTROPHILS ABSOLUTE COUNT BY AUTOMATED COUNT 12.4 High 1.5-6.6 10*3/uL Result Comment: This is an a ppended report. These results have been appended to a previously preliminary verified report. LAB ALYMP LYMPHOCYTES ABSOLUTE COUNT (10*3/UL) BY AUTOMATED COUNT 1.3 1.0-3.5 10*3/uL Result Comment: This is an a ppended report. These results have been appended to a previously preliminary verified report. LAB AMONO MONOCYTES ABSOLUTE COUNT (10*3/UL) BY AUTOMATED COUNT 1.8 High 0.0-0.9 10*3/uL Result Comment: This is an a ppended report. These results have been appended to a previously preliminary verified report. LAB AEOS EOSINOPHILS ABSOLUTE COUNT (10*3/UL) BY AUTOMATED COUNT 0.0 0.0-0.4 10*3/uL Result Comment: This is an a ppended report. These results have been appended to a previously preliminary verified report. LAB ABASO BASOPHILS ABSOLUTE COUNT (10*3/UL) BY AUTOMATED COUNT 0.0 0.0-0.2 10*3/uL Result Comment: This is an a ppended report. These results have been appended to a previously preliminary verified report. LAB DTYPE CELLAVISION DIFFERENTIAL TYPE AUTOMATED DIFFERENTIAL Result Comment: This is an a ppended report. These results have been appended to a previously preliminary verified report. Performed By: #### CBCA #### [facility] ([facility]) [facility]. [address] [place] [address] VIR MAGNESIUM Collected: 09/28/2024 6:43 AM S tatus: COMPLETED Source: [facility] TYPE CODE TESTS RESULT OUT OF RANGE REFERENCE UNITS LAB MG MAGNESIUM 1.8 1.8-2.6 mg/dL Performed By: #### MG #### [facility] ([facility]) Formerly [facility] [address] [place] [address] VIR PHOSPHORUS Collected: 09/28/2024 6:43 AM S tatus: COMPLETED Source: [facility] TYPE CODE TESTS RESULT OUT OF RANGE REFERENCE UNITS LAB PHOS PHOSPHORUS 2.6 2.4-4.9 mg/dL Performed By: #### PHOS #### [facility] ([facility]) [facility]. [address] [place] [address] VIR BASIC METABOLIC PANEL Collected: 09/28/2024 6:4 3 AM Status: COMPLETED Source: [facility] TYPE CODE TESTS RESULT OUT OF RANGE REFERENCE UNITS LAB NA SODIUM 140 134-146 mmol/L LAB K POTASSIUM 4.4 3.5-5.0 mmol/L LAB CL CHLORIDE 106 98-109 mmol/L LAB CO2 CARBON DIOXIDE 23 22-32 mmol/L LAB AGAP ANION GAP 11 5-15 mmol/L LAB BUN BLOOD UREA NITROGEN 26 High 5-23 mg/dL LAB CRET CREATININE 0.74 0.40-1.00 mg/dL Result Comment: METHOD TRACE ABLE TO IDMS STANDARD LAB GLU GLUCOSE 94 65-99 mg/dL LAB CA CALCIUM 8.8 8.5-10.5 mg/dL LAB EGFR EGFR (CKD-EPI) NON-RACE DEPENDENT >^90 >=60 ml/min/1. 73sq.m Result Comment: Reported eGF R is based on the CKD-EPI 2020 equation that does not use a race coefficient. Performed By: #### BMP #### [facility] ([facility]) [address] [place] [address] VIR IONIZED CALCIUM Collected: 09/28/2024 6:43 AM Status: COMPLETED Source: [facility] TYPE CODE TESTS RESULT OUT OF RANGE REFERENCE UNITS LAB ICA IONIZED CALCIUM - ICAN 4.3 Low 4.5-5.3 mg/dL Performed By: #### ICA #### [facility] ([facility]) [address] [place] [address] VIR CBC WITH AUTO DIFFERENTIAL Collected: 0 09/27/2024 7:48 AM Status: COMPLETED Source: [facility] TYPE CODE TESTS RESULT OUT OF RANGE REFERENCE UNITS LAB WBC WBC 17.1 High 4-11 x10E9/L LAB RBC RBC COUNT 4.14 3.8-5.2 X10E12/L LAB HGB HEMOGLOBIN 11.3 Low 11.7-15.5 g/dL LAB HCT HEMATOCRIT 34.3 Low 35-47 % LAB MCV MCV 83 80-100 fL LAB MCH MCH 27.3 27-34 pg LAB MCHC MCHC 33.0 32-36 g/dL LAB RDW RDW 16.6 High 11.5-15 % LAB PLTC PLATELET COUNT 116 Low 150-450 X10E9/L LAB MPV MPV 11.6 7-12 fL LAB MYEL CELLAVISION MYELOCYTE RELATIVE PERCENT BY MANUAL COUNT 1 % Result Comment: This is an a ppended report. These results have been appended to a previously preliminary verified report. LAB NEUTCV CELLAVISION NEUTROPHILS RELATIVE PERCENT BY MANUAL COUNT 82 % Result Comment: This is an a ppended report. These results have been appended to a previously preliminary verified report. LAB LYMPCV CELLAVISION LYMPHOCYTES RELATIVE PERCENT BY MANUAL COUNT 5 % Result Comment: This is an a ppended report. These results have been appended to a previously preliminary verified report. LAB MONOC CELLAVISION MONOCYTES RELATIVE PERCENT BY MANUAL COUNT 13 % Result Comment: This is an a ppended report. These results have been appended to a previously preliminary verified report. LAB ANEUTCV CELLAVISION NEUTROPHILS ABSOLUTE COUNT BY MANUAL COUNT 14.0 High 1.5-6.6 10*3/uL Result Comment: This is an a ppended report. These results have been appended to a previously preliminary verified report. LAB ALYMPCV CELLAVISION LYMPHOCYTES ABSOLUTE COUNT (10*3/UL) BY MANUAL COUNT 0.8 Low 1.0-3.5 10*3/uL Result Comment: This is an a ppended report. These results have been appended to a previously preliminary verified report. LAB AMONOC CELLAVISION MONOCYTES ABSOLUTE COUNT (10*3/UL) IN BLOOD BY MANUAL COUNT 2.2 High 0.0-0.9 10*3/uL Result Comment: This is an a ppended report. These results have been appended to a previously preliminary verified report. LAB DTYPE CELLAVISION DIFFERENTIAL TYPE CELLAVISION DIFFERENTIAL Result Comment: This is an a ppended report. These results have been appended to a previously preliminary verified report. Performed By: #### CBCA #### [facility] ([facility]) [address] [place] [address] VIR IONIZED CALCIUM Collected: 09/27/2024 7:48 AM Status: COMPLETED Source: [facility] TYPE CODE TESTS RESULT OUT OF RANGE REFERENCE UNITS LAB ICA IONIZED CALCIUM - ICAN 4.8 4.5-5.3 mg/dL Performed By: #### ICA #### [facility] ([facility]) [address] [place] [address] VIR MAGNESIUM Collected: 09/27/2024 7:48 AM S tatus: COMPLETED Source: [facility] TYPE CODE TESTS RESULT OUT OF RANGE REFERENCE UNITS LAB MG MAGNESIUM 1.9 1.8-2.6 mg/dL Performed By: #### MG #### [facility] ([facility]) [address] [place] [address] VIR PHOSPHORUS Collected: 09/27/2024 7:48 AM S tatus: COMPLETED Source: [facility] TYPE CODE TESTS RESULT OUT OF RANGE REFERENCE UNITS LAB PHOS PHOSPHORUS 2.8 2.4-4.9 mg/dL Performed By: #### PHOS #### [facility] ([facility]) [address] [place] [address] VIR BASIC METABOLIC PANEL Collected: 09/27/2024 7:4 8 AM Status: COMPLETED Source: [facility] TYPE CODE TESTS RESULT OUT OF RANGE REFERENCE UNITS LAB NA SODIUM 144 134-146 mmol/L LAB K POTASSIUM 4.6 3.5-5.0 mmol/L LAB CL CHLORIDE 109 98-109 mmol/L LAB CO2 CARBON DIOXIDE 25 22-32 mmol/L LAB AGAP ANION GAP 10 5-15 mmol/L LAB BUN BLOOD UREA NITROGEN 27 High 5-23 mg/dL LAB CRET CREATININE 0.74 0.40-1.00 mg/dL Result Comment: METHOD TRACE ABLE TO IDMS STANDARD LAB GLU GLUCOSE 101 High 65-99 mg/dL LAB CA CALCIUM 9.0 8.5-10.5 mg/dL LAB EGFR EGFR (CKD-EPI) NON-RACE DEPENDENT >^90 >=60 ml/min/1. 73sq.m Result Comment: Reported eGF R is based on the CKD-EPI 2020 equation that does not use a race coefficient. Performed By: #### BMP #### [facility] ([facility]) [address] [place] [address] VIR XR CHEST 1 VW Observed: 09/27/2024 6:11 AM Status: COMPLETED Source: [facility] XR CHEST 1 VW Single view chest History:evaluate for PNA Difficulty breathing, shortness of breath Comparison: 09/23/2024 Findings: Single portable view of the chest. Stable cardiomediastinal silhouette. No focal opacity, effusion or pneumothorax. Impression: No significant interval change or definitive acute process. Finalized by Eliazar Sterling MD on 09/27/2024 6:34 AM IONIZED MAGNESIUM Collected: 12:23 PM Status: COMPLETED Source: [facility] TYPE CODE TESTS RESULT OUT OF RANGE REFERENCE UNITS LAB IMAG IONIZED MAGNESIUM 0.56 0.45-0.74 mmol/L Performed By: #### IMAG #### [facility] ([facility]) [address] [place] [address] VIR CBC WITH AUTO DIFFERENTIAL Collected: 0 09/25/2024 4:15 AM Status: COMPLETED Source: [facility] TYPE CODE TESTS RESULT OUT OF RANGE REFERENCE UNITS LAB WBC WBC 23.8 High 4-11 x10E9/L LAB RBC RBC COUNT 4.16 3.8-5.2 X10E12/L LAB HGB HEMOGLOBIN 11.1 Low 11.7-15.5 g/dL LAB HCT HEMATOCRIT 34.4 Low 35-47 % LAB MCV MCV 83 80-100 fL LAB MCH MCH 26.7 Low 27-34 pg LAB MCHC MCHC 32.3 32-36 g/dL LAB RDW RDW 15.8 High 11.5-15 % LAB PLTC PLATELET COUNT 120 Low 150-450 X10E9/L LAB MPV MPV 10.5 7-12 fL LAB MYEL CELLAVISION MYELOCYTE RELATIVE PERCENT BY MANUAL COUNT 1 % Result Comment: This is an a ppended report. These results have been appended to a previously preliminary verified report. LAB NEUTCV CELLAVISION NEUTROPHILS RELATIVE PERCENT BY MANUAL COUNT 86 % Result Comment: This is an a ppended report. These results have been appended to a previously preliminary verified report. LAB LYMPCV CELLAVISION LYMPHOCYTES RELATIVE PERCENT BY MANUAL COUNT 3 % Result Comment: This is an a ppended report. These results have been appended to a previously preliminary verified report. LAB MONOC CELLAVISION MONOCYTES RELATIVE PERCENT BY MANUAL COUNT 11 % Result Comment: This is an a ppended report. These results have been appended to a previously preliminary verified report. LAB ANEUTCV CELLAVISION NEUTROPHILS ABSOLUTE COUNT BY MANUAL COUNT 20.4 High 1.5-6.6 10*3/uL Result Comment: This is an a ppended report. These results have been appended to a previously preliminary verified report. LAB ALYMPCV CELLAVISION LYMPHOCYTES ABSOLUTE COUNT (10*3/UL) BY MANUAL COUNT 0.7 Low 1.0-3.5 10*3/uL Result Comment: This is an a ppended report. These results have been appended to a previously preliminary verified report. LAB AMONOC CELLAVISION MONOCYTES ABSOLUTE COUNT (10*3/UL) IN BLOOD BY MANUAL COUNT 2.5 High 0.0-0.9 10*3/uL Result Comment: This is an a ppended report. These results have been appended to a previously preliminary verified report. LAB VACU CELLAVISION VACUOLATED NEUTROPHILS 1+ Result Comment: This is an a ppended report. These results have been appended to a previously preliminary verified report. LAB RBCMOR CELLAVISION RBC MORPHOLOGY Normal Result Comment: This is an a ppended report. These results have been appended to a previously preliminary verified report. LAB DTYPE CELLAVISION DIFFERENTIAL TYPE CELLAVISION DIFFERENTIAL Result Comment: This is an a ppended report. These results have been appended to a previously preliminary verified report. Performed By: #### CBCA #### [facility] ([facility]) [facility] [place] [address] VIR IONIZED CALCIUM Collected: 09/25/2024 4:15 AM Status: COMPLETED Source: [facility] TYPE CODE TESTS RESULT OUT OF RANGE REFERENCE UNITS LAB ICA IONIZED CALCIUM - ICAN 4.8 4.5-5.3 mg/dL Performed By: #### ICA #### [facility] ([facility]) [facility] [address] [address] VIR MAGNESIUM Collected: 09/25/2024 4:15 AM S tatus: COMPLETED Source: [facility] TYPE CODE TESTS RESULT OUT OF RANGE REFERENCE UNITS LAB MG MAGNESIUM 1.8 1.8-2.6 mg/dL Performed By: #### MG #### [facility] ([facility]) [facility] [address] [address] VIR PHOSPHORUS Collected: 09/25/2024 4:15 AM S tatus: COMPLETED Source: [facility] TYPE CODE TESTS RESULT OUT OF RANGE REFERENCE UNITS LAB PHOS PHOSPHORUS 2.3 Low 2.4-4.9 mg/dL Performed By: #### PHOS #### [facility] ([facility]) [facility] [address] [address] VIR BASIC METABOLIC PANEL Collected: 09/25/2024 4:1 5 AM Status: COMPLETED Source: [facility] TYPE CODE TESTS RESULT OUT OF RANGE REFERENCE UNITS LAB NA SODIUM 141 134-146 mmol/L LAB K POTASSIUM 4.0 3.5-5.0 mmol/L LAB CL CHLORIDE 107 98-109 mmol/L LAB CO2 CARBON DIOXIDE 24 22-32 mmol/L LAB AGAP ANION GAP 10 5-15 mmol/L LAB BUN BLOOD UREA NITROGEN 24 High 5-23 mg/dL LAB CRET CREATININE 0.80 0.40-1.00 mg/dL Result Comment: METHOD TRACE ABLE TO IDMS STANDARD LAB GLU GLUCOSE 165 High 65-99 mg/dL LAB CA CALCIUM 8.6 8.5-10.5 mg/dL LAB EGFR EGFR (CKD-EPI) NON-RACE DEPENDENT 86 >=60 ml/min/1. 73sq.m Result Comment: Reported eGF R is based on the CKD-EPI 2020 equation that does not use a race coefficient. Performed By: #### BMP #### [facility] ([facility]) [address] [place] [address] [facility] SWALLOW MOTILITY FUNCTION Observed: 09/24/2024 1:15 PM Status: COMPLETED Source: [facility] SWALLOW MOTILITY FUNCTION FL SWALLOW MOTILITY FUNCTION [...] Remy Christian MD on 09/24/2024 1:36 PM IONIZED CALCIUM Collected: 09/24/2024 3:31 AM Status: COMPLETED Source: [facility] TYPE CODE TESTS RESULT OUT OF RANGE REFERENCE UNITS LAB ICA IONIZED CALCIUM - ICAN 4.9 4.5-5.3 mg/dL Performed By: #### ICA #### [facility] ([facility]) [address] [place] [address] VIR CBC WITH AUTO DIFFERENTIAL Collected: 0 09/24/2024 3:31 AM Status: COMPLETED Source: [facility] TYPE CODE TESTS RESULT OUT OF RANGE REFERENCE UNITS LAB WBC WBC 26.5 High 4-11 x10E9/L LAB RBC RBC COUNT 4.22 3.8-5.2 X10E12/L LAB HGB HEMOGLOBIN 11.2 Low 11.7-15.5 g/dL LAB HCT HEMATOCRIT 34.8 Low 35-47 % LAB MCV MCV 82 80-100 fL LAB MCH MCH 26.5 Low 27-34 pg LAB MCHC MCHC 32.1 32-36 g/dL LAB RDW RDW 15.3 High 11.5-15 % LAB PLTC PLATELET COUNT 155 150-450 X10E9/L LAB MPV MPV 9.5 7-12 fL LAB NEUT NEUTROPHILS RELATIVE PERCENT BY AUTOMATED COUNT 86.7 % Result Comment: This is an a ppended report. These results have been appended to a previously preliminary verified report. LAB LYMP LYMPHOCYTES RELATIVE PERCENT BY AUTOMATED COUNT 2.8 % Result Comment: This is an a ppended report. These results have been appended to a previously preliminary verified report. LAB MONO MONOCYTES RELATIVE PERCENT BY AUTOMATED COUNT 10.4 % Result Comment: This is an a ppended report. These results have been appended to a previously preliminary verified report. LAB EOS EOSINOPHILS RELATIVE PERCENT BY AUTOMATED COUNT 0.0 % Result Comment: This is an a ppended report. These results have been appended to a previously preliminary verified report. LAB BASO BASOPHILS RELATIVE PERCENT BY AUTOMATED COUNT 0.1 % Result Comment: This is an a ppended report. These results have been appended to a previously preliminary verified report. LAB ANEUT NEUTROPHILS ABSOLUTE COUNT BY AUTOMATED COUNT 22.9 10*3/uL Result Comment: This is an a ppended report. These results have been appended to a previously preliminary verified report. LAB ALYMP LYMPHOCYTES ABSOLUTE COUNT (10*3/UL) BY AUTOMATED COUNT 0.7 10*3/uL Result Comment: This is an a ppended report. These results have been appended to a previously preliminary verified report. LAB AMONO MONOCYTES ABSOLUTE COUNT (10*3/UL) BY AUTOMATED COUNT 2.8 10*3/uL Result Comment: This is an a ppended report. These results have been appended to a previously preliminary verified report. LAB AEOS EOSINOPHILS ABSOLUTE COUNT (10*3/UL) BY AUTOMATED COUNT 0.0 10*3/uL Result Comment: This is an a ppended report. These results have been appended to a previously preliminary verified report. LAB ABASO BASOPHILS ABSOLUTE COUNT (10*3/UL) BY AUTOMATED COUNT 0.0 10*3/uL Result Comment: This is an a ppended report. These results have been appended to a previously preliminary verified report. LAB DTYPE CELLAVISION DIFFERENTIAL TYPE AUTOMATED DIFFERENTIAL Result Comment: This is an a ppended report. These results have been appended to a previously preliminary verified report. Performed By: #### CBCA #### [facility] ([facility]) [address] [place] [address] VIR MAGNESIUM Collected: 09/24/2024 3:31 AM S tatus: COMPLETED Source: [facility] TYPE CODE TESTS RESULT OUT OF RANGE REFERENCE UNITS LAB MG MAGNESIUM 2.3 1.8-2.6 mg/dL Performed By: #### MG #### [facility] ([facility]) [address] [place] [address] VIR PHOSPHORUS Collected: 09/24/2024 3:31 AM S tatus: COMPLETED Source: [facility] TYPE CODE TESTS RESULT OUT OF RANGE REFERENCE UNITS LAB PHOS PHOSPHORUS 3.5 2.4-4.9 mg/dL Performed By: #### PHOS #### [facility] ([facility]) [address] [place] [address] VIR COMPREHENSIVE METABOLIC PANEL Collected: 2024 3:31 AM Status: COMPLETED Source: [facility] TYPE CODE TESTS RESULT OUT OF RANGE REFERENCE UNITS LAB NA SODIUM 141 134-146 mmol/L LAB K POTASSIUM 4.3 3.5-5.0 mmol/L LAB CL CHLORIDE 108 98-109 mmol/L LAB CO2 CARBON DIOXIDE 23 22-32 mmol/L LAB AGAP ANION GAP 10 5-15 mmol/L LAB BUN BLOOD UREA NITROGEN 27 High 5-23 mg/dL LAB CRET CREATININE 1.06 High 0.40-1.00 mg/dL Result Comment: METHOD TRACE ABLE TO IDMS STANDARD LAB GLU GLUCOSE 120 High 65-99 mg/dL LAB CA CALCIUM 8.7 8.5-10.5 mg/dL LAB TP TOTAL PROTEIN 6.3 6.0-8.0 g/dL LAB ALB ALBUMIN 3.3 3.2-5.3 g/dL LAB ALK ALKALINE PHOSPHATASE 61 39-130 U/L LAB AST AST 19 <=41 U/L LAB ALT ALT 33 High <=31 U/L LAB TBIL BILIRUBIN,TOTAL 0.4 0.3-1.2 mg/dL LAB EGFR EGFR (CKD-EPI) NON-RACE DEPENDENT 62 >=60 ml/min/1 .73sq.m Result Comment: Reported eGF R is based on the CKD-EPI 2020 equation that does not use a race coefficient. Performed By: #### CMP #### [facility] ([facility]) [address] [place] [address] VIR CREATININE, SERUM Collected: 3:31 AM Status: X Source: [facility] Order Comment: Spoke to Kate Taylor RN. BMP since resulted making duplicate order, add-on is not necessary. TYPE CODE TESTS RESULT OUT OF RANGE REFERENCE UNITS LAB OPEN HEARTH FURNACE LABORER(LOINC) CREATININE, SERUM OPEN HEARTH FURNACE LABORER CREATININE, SERUM Cancelled CT BRAIN WO CONT Observed: 09/23/2024 7:19 PM Status: COMPLETED Source: [facility] CT BRAIN WO CONT STUDY: CT BRAIN [...] by Hebert Farrar on 09/23/2024 7:38 PM XR ABD NG TUBE PLACEMENT 1 VIEW Observed: 09/23/2024 5:08 PM Status: COMPLETED Source: [facility] XR ABD NG TUBE PLACEMENT 1 V IEW EXAM: XR ABD NG TUBE PLACEMENT 1 VIEW CLINICAL INFORMATION: new NG placed. COMPARISON: 09/20/2024 FINDINGS: The gastric tube tip is in the stomach. IMPRESSION: Gastric tube tip in stomach. Finalized by Sebastian Grayson MD on 09/23/2024 5:22 PM BEDSIDE GLUCOSE Collected: 09/23/2024 4:49 PM Status: COMPLETED Source: [facility] TYPE CODE TESTS RESULT OUT OF RANGE REFERENCE UNITS LAB BEDG BEDSIDE GLUCOSE ???BEDG 153 High 65-99 mg/dL Performed By: #### BEDG #### [facility] ([facility]) [address] [place] [address] VIR SURGICAL PATHOLOGY Observed: 09/23/2024 3:06 PM Status: COMPLETED Source: [facility] Order Comment: Pre-op diagno sis: brain tumor Surgical Pathology Report Ca se: [id number] Authorizing Provider: Juni Espinal MD Collected: 09/23/2024 1506 Ordering Location: [facility] Received: 09/23/2024 1629 - Surgery Pathologist: Alyssa Renteria MD Specimen: Brain, BRAIN TUMOR Brain, tumor, resection ([id number]; 09/23/2024): Glioblastoma, 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 See comment. COMMENT: Histologic sections demonstrate a highly cellular infiltrating astrocytoma. A majority of the tumor shows fibrillary morphology, with a minor component showing giant cell morphology. The tumor harbors brisk mitotic activity, microvascular proliferation, and necrosis, supporting a histologic diagnosis of glioblastoma. By immunohistochemistry, the tumor is IDH-wildtype. ANCILLARY STUDIES: Immunohistochemical stains were performed at [facility] on block E1 (IDH1- R132H, ATRX, p53, GFAP, synaptophysin) and reviewed in [...] to be less than 1% (Neuro-Oncology. 2014 Mar;16(11):1478?83). Therefore, tissue is not being submitted for [...] is that of Anahi Franklin M.D., Ph.D., [facility], [place], [place]. Please see the complete pathology consult (scanned on 10/09/2024). at 0851 EDT Received in formalin labeled LONZ, brain tumor is a 8.5 x 4.5 x 1.6 cm aggregate of pink-pinedo, rubbery and friable soft tissue fragments. The specimen is filtered and entirely submitted in cassettes A-L. (12, ns, [id number], m8.1) MW Brain tumor, resection: High grade (grade 4) [...] molecular studies, is to be performed at [facility] for a final integrated diagnosis to follow. Preliminary result electronically signed by ALYSSA RENTERIA MD on 10/01/2024 at 1059 EDT Brain/Spinal Cord/Nerve: Biopsy/Resection BRAIN/SPINAL CORD: BIOPSY/RESECTION - [...] histologic grade) (Note D): WHO Grade IV Performed By: #### SURG #### [facility] ([facility]) [address] [place] [address] [facility] ([facility]) [address] [place] [address] VIR XR CHEST 1 VW Observed: 09/23/2024 11:57 AM Status: COMPLETED Source: [facility] XR CHEST 1 VW History: Preoperative exam. History of asthma. Procedure: Chest AP portable upright Comparison: 10/06/2024 Findings: The heart and lungs show no acute findings, and the mediastinum and gema are grossly negative . No pneumothorax. Impression: No acute pulmonary process. Finalized by Shen Farooq MD on 09/23/2024 12:23 PM IONIZED CALCIUM Collected: 09/23/2024 7:01 AM Status: COMPLETED Source: [facility] TYPE CODE TESTS RESULT OUT OF RANGE REFERENCE UNITS LAB ICA IONIZED CALCIUM - ICAN 4.8 4.5-5.3 mg/dL Performed By: #### ICA #### [facility] ([facility]) [address] [place] [address] VIR CBC WITH AUTO DIFFERENTIAL Collected: 0 09/23/2024 7:01 AM Status: COMPLETED Source: [facility] TYPE CODE TESTS RESULT OUT OF RANGE REFERENCE UNITS LAB WBC WBC 15.1 High 4-11 x10E9/L LAB RBC RBC COUNT 4.57 3.8-5.2 X10E12/L LAB HGB HEMOGLOBIN 12.3 11.7-15.5 g/dL LAB HCT HEMATOCRIT 37.3 35-47 % LAB MCV MCV 82 80-100 fL LAB MCH MCH 26.9 Low 27-34 pg LAB MCHC MCHC 32.9 32-36 g/dL LAB RDW RDW 15.5 High 11.5-15 % LAB PLTC PLATELET COUNT 167 150-450 X10E9/L LAB MPV MPV 9.5 7-12 fL LAB NEUT NEUTROPHILS RELATIVE PERCENT BY AUTOMATED COUNT 85.6 % LAB LYMP LYMPHOCYTES RELATIVE PERCENT BY AUTOMATED COUNT 7.0 % LAB MONO MONOCYTES RELATIVE PERCENT BY AUTOMATED COUNT 6.9 % LAB EOS EOSINOPHILS RELATIVE PERCENT BY AUTOMATED COUNT 0.1 % LAB BASO BASOPHILS RELATIVE PERCENT BY AUTOMATED COUNT 0.4 % LAB ANEUT NEUTROPHILS ABSOLUTE COUNT BY AUTOMATED COUNT 12.9 10*3/uL LAB ALYMP LYMPHOCYTES ABSOLUTE COUNT (10*3/UL) BY AUTOMATED COUNT 1.1 10*3/uL LAB AMONO MONOCYTES ABSOLUTE COUNT (10*3/UL) BY AUTOMATED COUNT 1.0 10*3/uL LAB AEOS EOSINOPHILS ABSOLUTE COUNT (10*3/UL) BY AUTOMATED COUNT 0.0 10*3/uL LAB ABASO BASOPHILS ABSOLUTE COUNT (10*3/UL) BY AUTOMATED COUNT 0.1 10*3/uL LAB DTYPE CELLAVISION DIFFERENTIAL TYPE AUTOMATED DIFFERENTIAL Performed By: #### CBCA #### [facility] ([facility]) [address] [place] [address] VIR MAGNESIUM Collected: 09/23/2024 7:01 AM S tatus: COMPLETED Source: [facility] TYPE CODE TESTS RESULT OUT OF RANGE REFERENCE UNITS LAB MG MAGNESIUM 1.8 1.8-2.6 mg/dL Performed By: #### MG #### [facility] ([facility]) [address] [place] [address] VIR PHOSPHORUS Collected: 09/23/2024 7:01 AM S tatus: COMPLETED Source: [facility] TYPE CODE TESTS RESULT OUT OF RANGE REFERENCE UNITS LAB PHOS PHOSPHORUS 3.0 2.4-4.9 mg/dL Result Comment: R-Specimen s lightly hemolyzed, results increased Performed By: #### PHOS #### [facility] ([facility]) [address] [place] [address] VIR BASIC METABOLIC PANEL Collected: 09/23/2024 7:0 1 AM Status: COMPLETED Source: [facility] TYPE CODE TESTS RESULT OUT OF RANGE REFERENCE UNITS LAB NA SODIUM 143 134-146 mmol/L LAB K POTASSIUM 4.4 3.5-5.0 mmol/L LAB CL CHLORIDE 111 High 98-109 mmol/L LAB CO2 CARBON DIOXIDE 24 22-32 mmol/L LAB AGAP ANION GAP 8 5-15 mmol/L LAB BUN BLOOD UREA NITROGEN 25 High 5-23 mg/dL LAB CRET CREATININE 0.91 0.40-1.00 mg/dL Result Comment: METHOD TRACE ABLE TO IDMS STANDARD LAB GLU GLUCOSE 106 High 65-99 mg/dL LAB CA CALCIUM 9.0 8.5-10.5 mg/dL LAB EGFR EGFR (CKD-EPI) NON-RACE DEPENDENT 74 >=60 ml/min/1. 73sq.m Result Comment: Reported eGF R is based on the CKD-EPI 2020 equation that does not use a race coefficient. Performed By: #### BMP #### [facility] ([facility]) [address] [place] [address] VIR REPEATED ABORH Collected: 09/23/2024 7:00 AM S tatus: COMPLETED Source: [facility] TYPE CODE TESTS RESULT OUT OF RANGE REFERENCE UNITS LAB ABO_INTEP ABO_INTEP O LAB RH_INTEP RH_INTEP Positive Performed By: #### ABORHR ## ## [facility] ([facility]) [address] [place] [address] VIR ELECTROLYTE PANEL Collected: 09/22/2024 9:27 PM Status: COMPLETED Source: [facility] TYPE CODE TESTS RESULT OUT OF RANGE REFERENCE UNITS LAB NA SODIUM 142 134-146 mmol/L LAB K POTASSIUM 4.5 3.5-5.0 mmol/L LAB CL CHLORIDE 109 98-109 mmol/L LAB CO2 CARBON DIOXIDE 22 22-32 mmol/L LAB AGAP ANION GAP 11 5-15 mmol/L Performed By: #### ELEC #### [facility] ([facility]) [address] [place] [address] [address] [place] [address] VIR TYPE AND SCREEN Collected: 09/22/2024 9:27 PM Status : C Source: [facility] TYPE CODE TESTS RESULT OUT OF RANGE REFERENCE UNITS LAB ABO_INTEP ABO_INTEP O LAB RH_INTEP RH_INTEP Positive LAB ABSC_INTEP ANTIBODY SCREEN Negative Performed By: #### TSC #### [facility] ([facility]) [address] [place] [address] VIR REPEATED ABORH Collected: 09/22/2024 9:27 PM S tatus: COMPLETED Source: [facility] TYPE CODE TESTS RESULT OUT OF RANGE REFERENCE UNITS LAB ABO_INTEP ABO_INTEP O LAB RH_INTEP RH_INTEP Positive Performed By: #### ABORHR ## ## [facility] ([facility]) [address] [place] [address] VIR ELECTROLYTE PANEL Collected: 09/22/2024 1:06 PM Status: COMPLETED Source: [facility] TYPE CODE TESTS RESULT OUT OF RANGE REFERENCE UNITS LAB NA SODIUM 143 134-146 mmol/L LAB K POTASSIUM 4.1 3.5-5.0 mmol/L LAB CL CHLORIDE 110 High 98-109 mmol/L LAB CO2 CARBON DIOXIDE 23 22-32 mmol/L LAB AGAP ANION GAP 10 5-15 mmol/L Performed By: #### ELEC #### [facility] ([facility]) [address] [place] [id number] VIR CBC WITH AUTO DIFFERENTIAL Collected: 0 09/22/2024 6:14 AM Status: COMPLETED Source: [facility] TYPE CODE TESTS RESULT OUT OF RANGE REFERENCE UNITS LAB WBC WBC 13.7 High 4-11 x10E9/L LAB RBC RBC COUNT 4.57 3.8-5.2 X10E12/L LAB HGB HEMOGLOBIN 12.3 11.7-15.5 g/dL LAB HCT HEMATOCRIT 38.0 35-47 % LAB MCV MCV 83 80-100 fL LAB MCH MCH 27.0 27-34 pg LAB MCHC MCHC 32.5 32-36 g/dL LAB RDW RDW 15.5 High 11.5-15 % LAB PLTC PLATELET COUNT 167 150-450 X10E9/L LAB MPV MPV 9.6 7-12 fL LAB NEUT NEUTROPHILS RELATIVE PERCENT BY AUTOMATED COUNT 87.3 % LAB LYMP LYMPHOCYTES RELATIVE PERCENT BY AUTOMATED COUNT 6.4 % LAB MONO MONOCYTES RELATIVE PERCENT BY AUTOMATED COUNT 6.0 % LAB EOS EOSINOPHILS RELATIVE PERCENT BY AUTOMATED COUNT 0.0 % LAB BASO BASOPHILS RELATIVE PERCENT BY AUTOMATED COUNT 0.3 % LAB ANEUT NEUTROPHILS ABSOLUTE COUNT BY AUTOMATED COUNT 11.9 10*3/uL LAB ALYMP LYMPHOCYTES ABSOLUTE COUNT (10*3/UL) BY AUTOMATED COUNT 0.9 10*3/uL LAB AMONO MONOCYTES ABSOLUTE COUNT (10*3/UL) BY AUTOMATED COUNT 0.8 10*3/uL LAB AEOS EOSINOPHILS ABSOLUTE COUNT (10*3/UL) BY AUTOMATED COUNT 0.0 10*3/uL LAB ABASO BASOPHILS ABSOLUTE COUNT (10*3/UL) BY AUTOMATED COUNT 0.0 10*3/uL LAB DTYPE CELLAVISION DIFFERENTIAL TYPE AUTOMATED DIFFERENTIAL Performed By: #### CBCA #### [facility] ([facility]) [address] [place] [address] VIR PHOSPHORUS Collected: 09/22/2024 6:14 AM S tatus: COMPLETED Source: [facility] TYPE CODE TESTS RESULT OUT OF RANGE REFERENCE UNITS LAB PHOS PHOSPHORUS 3.3 2.4-4.9 mg/dL Performed By: #### PHOS #### [facility] ([facility]) [address] [place] [address] VIR MAGNESIUM Collected: 09/22/2024 6:14 AM S tatus: COMPLETED Source: [facility] TYPE CODE TESTS RESULT OUT OF RANGE REFERENCE UNITS LAB MG MAGNESIUM 1.9 1.8-2.6 mg/dL Performed By: #### MG #### [facility] ([facility]) [address] [place] [address] VIR VANCOMYCIN, RANDOM Collected: 09/22/2024 6:14 A M Status: COMPLETED Source: [facility] Order Comment: Peak 30-40 u g/mL Trough 5-20 ug/ml TYPE CODE TESTS RESULT OUT OF RANGE REFERENCE UNITS LAB VANC VANCOMYCIN 16.5 5.0-40.0 ug/mL Performed By: #### VANC #### [facility] ([facility]) [address] [place] [address] VIR IONIZED CALCIUM Collected: 09/22/2024 6:14 AM Status: COMPLETED Source: [facility] TYPE CODE TESTS RESULT OUT OF RANGE REFERENCE UNITS LAB ICA IONIZED CALCIUM - ICAN 4.6 4.5-5.3 mg/dL Performed By: #### ICA #### [facility] ([facility]) [address] [place] [address] VIR BASIC METABOLIC PANEL Collected: 09/22/2024 6:1 4 AM Status: COMPLETED Source: [facility] TYPE CODE TESTS RESULT OUT OF RANGE REFERENCE UNITS LAB NA SODIUM 144 134-146 mmol/L LAB K POTASSIUM 4.4 3.5-5.0 mmol/L LAB CL CHLORIDE 110 High 98-109 mmol/L LAB CO2 CARBON DIOXIDE 23 22-32 mmol/L LAB AGAP ANION GAP 11 5-15 mmol/L LAB BUN BLOOD UREA NITROGEN 24 High 5-23 mg/dL LAB CRET CREATININE 1.01 High 0.40-1.00 mg/dL Result Comment: METHOD TRACE ABLE TO IDMS STANDARD LAB GLU GLUCOSE 129 High 65-99 mg/dL LAB CA CALCIUM 9.0 8.5-10.5 mg/dL LAB EGFR EGFR (CKD-EPI) NON-RACE DEPENDENT 65 >=60 ml/min/1. 73sq.m Result Comment: Reported eGF R is based on the CKD-EPI 2020 equation that does not use a race coefficient. Performed By: #### BMP #### [facility] ([facility]) [address] [place] [address] VIR ELECTROLYTE PANEL Collected: 09/21/2024 8:41 PM Status: COMPLETED Source: [facility] TYPE CODE TESTS RESULT OUT OF RANGE REFERENCE UNITS LAB NA SODIUM 146 134-146 mmol/L LAB K POTASSIUM 4.2 3.5-5.0 mmol/L LAB CL CHLORIDE 113 High 98-109 mmol/L LAB CO2 CARBON DIOXIDE 22 22-32 mmol/L LAB AGAP ANION GAP 11 5-15 mmol/L Performed By: #### ELEC #### [facility] ([facility]) [facility] [place] [address] VIR CLINICAL PATHOLOGY REVIEW Observed: 09/2024 3:31 PM Status: COMPLETED Source: [facility] Clinical Pathology Report Ca se: [id number] Authorizing Provider: Miriam Church MD Collected: 09/21/2024 1531 Ordering Location: [facility] Received: 09/21/2024 1531 - GEN 9 ICU Pathologist: Cecy Altman MD Specimen: Blood, Venous Prominent band in beta region, recommend immunofixation for further evaluation. Hypoalbuminemia with increase in acute phase reactants. at 1159 EDT Performed By: #### CLNP #### [facility] ([facility]) [facility]. [address] [place] [address] VIR IONIZED MAGNESIUM Collected: 11:52 AM Status: COMPLETED Source: [facility] TYPE CODE TESTS RESULT OUT OF RANGE REFERENCE UNITS LAB IMAG IONIZED MAGNESIUM 0.61 0.45-0.74 mmol/L Performed By: #### IMAG #### [facility] ([facility]) [address] [place] [address] VIR VANCOMYCIN, RANDOM Collected: 09/21/2024 11:52 AM Status: COMPLETED Source: [facility] Order Comment: Peak 30-40 ug /mL Trough 5-20 ug/ml TYPE CODE TESTS RESULT OUT OF RANGE REFERENCE UNITS LAB VANC VANCOMYCIN 16.0 5.0-40.0 ug/mL Performed By: #### VANC #### [facility] ([facility]) [address] [place] [address] [place] [address] VIR ELECTROLYTE PANEL Collected: 11:52 AM Status: COMPLETED Source: [facility] TYPE CODE TESTS RESULT OUT OF RANGE REFERENCE UNITS LAB NA SODIUM 145 134-146 mmol/L LAB K POTASSIUM 4.1 3.5-5.0 mmol/L LAB CL CHLORIDE 112 High 98-109 mmol/L LAB CO2 CARBON DIOXIDE 24 22-32 mmol/L LAB AGAP ANION GAP 9 5-15 mmol/L Performed By: #### ELEC #### [facility] ([facility]) [address] [place] [address] VIR IONIZED CALCIUM Collected: 09/21/2024 2:30 AM Status: COMPLETED Source: [facility] TYPE CODE TESTS RESULT OUT OF RANGE REFERENCE UNITS LAB ICA IONIZED CALCIUM - ICAN 5.1 4.5-5.3 mg/dL Performed By: #### ICA #### [facility] ([facility]) [address] [place] [address] VIR CBC WITH AUTO DIFFERENTIAL Collected: 0 09/21/2024 2:30 AM Status: COMPLETED Source: [facility] TYPE CODE TESTS RESULT OUT OF RANGE REFERENCE UNITS LAB WBC WBC 12.2 High 4-11 x10E9/L LAB RBC RBC COUNT 4.05 3.8-5.2 X10E12/L LAB HGB HEMOGLOBIN 11.0 Low 11.7-15.5 g/dL LAB HCT HEMATOCRIT 33.6 Low 35-47 % LAB MCV MCV 83 80-100 fL LAB MCH MCH 27.1 27-34 pg LAB MCHC MCHC 32.6 32-36 g/dL LAB RDW RDW 15.1 High 11.5-15 % LAB PLTC PLATELET COUNT 183 150-450 X10E9/L LAB MPV MPV 9.2 7-12 fL LAB NEUT NEUTROPHILS RELATIVE PERCENT BY AUTOMATED COUNT 88.3 % LAB LYMP LYMPHOCYTES RELATIVE PERCENT BY AUTOMATED COUNT 6.2 % LAB MONO MONOCYTES RELATIVE PERCENT BY AUTOMATED COUNT 4.8 % LAB EOS EOSINOPHILS RELATIVE PERCENT BY AUTOMATED COUNT 0.0 % LAB BASO BASOPHILS RELATIVE PERCENT BY AUTOMATED COUNT 0.7 % LAB ANEUT NEUTROPHILS ABSOLUTE COUNT BY AUTOMATED COUNT 10.8 10*3/uL LAB ALYMP LYMPHOCYTES ABSOLUTE COUNT (10*3/UL) BY AUTOMATED COUNT 0.8 10*3/uL LAB AMONO MONOCYTES ABSOLUTE COUNT (10*3/UL) BY AUTOMATED COUNT 0.6 10*3/uL LAB AEOS EOSINOPHILS ABSOLUTE COUNT (10*3/UL) BY AUTOMATED COUNT 0.0 10*3/uL LAB ABASO BASOPHILS ABSOLUTE COUNT (10*3/UL) BY AUTOMATED COUNT 0.1 10*3/uL LAB DTYPE CELLAVISION DIFFERENTIAL TYPE AUTOMATED DIFFERENTIAL Performed By: #### CBCA #### [facility] ([facility]) [facility] [place] [address] VIR MAGNESIUM Collected: 09/21/2024 2:30 AM S tatus: COMPLETED Source: [facility] TYPE CODE TESTS RESULT OUT OF RANGE REFERENCE UNITS LAB MG MAGNESIUM 1.8 1.8-2.6 mg/dL Performed By: #### MG #### [facility] ([facility]) [address] [place] [address] VIR PHOSPHORUS Collected: 09/21/2024 2:30 AM S tatus: COMPLETED Source: [facility] CODE TESTS RESULT OUT OF RANGE REFERENCE UNITS LAB PHOS PHOSPHORUS 2.7 2.4-4.9 mg/dL Performed By: #### PHOS #### [facility] ([facility]) [address] [place] [address] VIR BASIC METABOLIC PANEL Collected: 09/21/2024 2:3 0 AM Status: COMPLETED Source: [facility] TYPE CODE TESTS RESULT OUT OF RANGE REFERENCE UNITS LAB NA SODIUM 148 High 134-146 mmol/L LAB K POTASSIUM 3.9 3.5-5.0 mmol/L LAB CL CHLORIDE 114 High 98-109 mmol/L LAB CO2 CARBON DIOXIDE 24 22-32 mmol/L LAB AGAP ANION GAP 10 5-15 mmol/L LAB BUN BLOOD UREA NITROGEN 24 High 5-23 mg/dL LAB CRET CREATININE 1.27 High 0.40-1.00 mg/dL Result Comment: METHOD TRACE ABLE TO IDMS STANDARD LAB GLU GLUCOSE 127 High 65-99 mg/dL LAB CA CALCIUM 9.2 8.5-10.5 mg/dL LAB EGFR EGFR (CKD-EPI) NON-RACE DEPENDENT 50 Low >=60 ml/min/1. 73sq.m Result Comment: Reported eGF R is based on the CKD-EPI 2020 equation that does not use a race coefficient. Performed By: #### BMP #### [facility] ([facility]) [address] [place] [address] VIR VANCOMYCIN, RANDOM Collected: 09/20/2024 7:56 P M Status: COMPLETED Source: [facility] Order Comment: Peak 30-40 ug /mL Trough 5-20 ug/ml TYPE CODE TESTS RESULT OUT OF RANGE REFERENCE UNITS LAB VANC VANCOMYCIN 10.0 5.0-40.0 ug/mL Performed By: #### VANC #### [facility] ([facility]) [facility] [place] [address] VIR ELECTROLYTE PANEL Collected: 09/20/2024 7:56 PM Status: COMPLETED Source: [facility] TYPE CODE TESTS RESULT OUT OF RANGE REFERENCE UNITS LAB NA SODIUM 147 High 134-146 mmol/L Result Comment: R-Specimen m arkedly hemolyzed, results questionable due to hemolysis LAB K POTASSIUM 5.1 High 3.5-5.0 mmol/L Result Comment: R-Specimen m arkedly hemolyzed, results increased LAB CL CHLORIDE 113 High 98-109 mmol/L LAB CO2 CARBON DIOXIDE 25 22-32 mmol/L LAB AGAP ANION GAP 9 5-15 mmol/L Performed By: #### ELEC #### [facility] ([facility]) [address] [place] [address] VIR XR ABD NG TUBE PLACEMENT 1 VIEW Observed: 09/20/2024 6:51 PM Status: COMPLETED Source: [facility] XR ABD NG TUBE PLACEMENT 1 V IEW Supine abdominal radiograph HISTORY: NG placement COMPARISON: None IMPRESSION: NG tube extends below the diaphragm into the stomach with tip in the distal gastric body. Finalized by Thad Aguero MD on 09/20/2024 8:[address] ABDOMEN AND PELVIS WO CONT Observed: 09/20/2024 2:15 PM Status: COMPLETED Source: [facility] CT ABDOMEN AND PELVIS WO CON T CT ABDOMEN AND PELVIS WITHOUT IV CONTRAST [...] Bipin Mejia MD on 09/20/2024 3:53 PM ELECTROLYTE PANEL Collected: 11:14 AM Status: COMPLETED Source: [facility] TYPE CODE TESTS RESULT OUT OF RANGE REFERENCE UNITS LAB NA SODIUM 151 High 134-146 mmol/L LAB K POTASSIUM 4.0 3.5-5.0 mmol/L LAB CL CHLORIDE 117 High 98-109 mmol/L LAB CO2 CARBON DIOXIDE 26 22-32 mmol/L LAB AGAP ANION GAP 8 5-15 mmol/L Performed By: #### ELEC #### [facility] ([facility]) [address] [place] [address] VIR IONIZED MAGNESIUM Collected: 11:14 AM Status: COMPLETED Source: [facility] TYPE CODE TESTS RESULT OUT OF RANGE REFERENCE UNITS LAB IMAG IONIZED MAGNESIUM 0.64 0.45-0.74 mmol/L Performed By: #### IMAG #### [facility] ([facility]) [facility] [address] [place] [address] VIR BLOOD CULTURE Observed: 09/20/2024 7:33 AM Status: COMPLETED Source: [facility] Order Comment: *SIRS Criteri a: (must display 2 without other explanation) -Temperature < 36 or >38 -Pulse >90 -Resp rate >20 -WBC less than 4K or greater than 12K Repeat blood cultures not needed: -To document that a blood culture is a contaminant when 1 of 2 bottles is positive for a common contaminant (already listed in [facility] with the culture result) -To document clearance of gram negative bacteremia in patients with suspected urinary source who are improving Suboptimal volume of blood collected, Results may be affected. CULTURE RESULTS NO GROWTH 5 DAYS Performed By: #### BC #### [facility] ([facility]) [facility] [address] [place] [address] VIR BLOOD CULTURE Observed: 09/20/2024 7:29 AM Status: COMPLETED Source: [facility] Order Comment: *SIRS Criteri a: (must display 2 without other explanation) -Temperature < 36 or >38 -Pulse >90 -Resp rate >20 -WBC less than 4K or greater than 12K Repeat blood cultures not needed: -To document that a blood culture is a contaminant when 1 of 2 bottles is positive for a common contaminant (already listed in Epic with the culture result) -To document clearance of gram negative bacteremia in patients with suspected urinary source who are improving Suboptimal volume of blood collected, Results may be affected. CULTURE RESULTS NO GROWTH 5 DAYS Performed By: #### BC #### [facility] ([facility]) [address] [place] [address] VIR IONIZED CALCIUM Collected: 09/20/2024 2:59 AM Status: COMPLETED Source: [facility] TYPE CODE TESTS RESULT OUT OF RANGE REFERENCE UNITS LAB ICA IONIZED CALCIUM - ICAN 5.2 4.5-5.3 mg/dL Performed By: #### ICA #### [facility] ([facility]) [address] [place] [address] VIR CBC WITH AUTO DIFFERENTIAL Collected: 0 09/20/2024 2:59 AM Status: COMPLETED Source: [facility] TYPE CODE TESTS RESULT OUT OF RANGE REFERENCE UNITS LAB WBC WBC 8.9 4-11 x10E9/L LAB RBC RBC COUNT 4.08 3.8-5.2 X10E12/L LAB HGB HEMOGLOBIN 11.0 Low 11.7-15.5 g/dL LAB HCT HEMATOCRIT 33.5 Low 35-47 % LAB MCV MCV 82 80-100 fL LAB MCH MCH 26.9 Low 27-34 pg LAB MCHC MCHC 32.8 32-36 g/dL LAB RDW RDW 15.6 High 11.5-15 % LAB PLTC PLATELET COUNT 190 150-450 X10E9/L LAB MPV MPV 9.0 7-12 fL LAB NEUT NEUTROPHILS RELATIVE PERCENT BY AUTOMATED COUNT 89.6 % LAB LYMP LYMPHOCYTES RELATIVE PERCENT BY AUTOMATED COUNT 5.6 % LAB MONO MONOCYTES RELATIVE PERCENT BY AUTOMATED COUNT 4.3 % LAB EOS EOSINOPHILS RELATIVE PERCENT BY AUTOMATED COUNT 0.0 % LAB BASO BASOPHILS RELATIVE PERCENT BY AUTOMATED COUNT 0.5 % LAB ANEUT NEUTROPHILS ABSOLUTE COUNT BY AUTOMATED COUNT 8.0 10*3/uL LAB ALYMP LYMPHOCYTES ABSOLUTE COUNT (10*3/UL) BY AUTOMATED COUNT 0.5 10*3/uL LAB AMONO MONOCYTES ABSOLUTE COUNT (10*3/UL) BY AUTOMATED COUNT 0.4 10*3/uL LAB AEOS EOSINOPHILS ABSOLUTE COUNT (10*3/UL) BY AUTOMATED COUNT 0.0 10*3/uL LAB ABASO BASOPHILS ABSOLUTE COUNT (10*3/UL) BY AUTOMATED COUNT 0.0 10*3/uL LAB DTYPE CELLAVISION DIFFERENTIAL TYPE AUTOMATED DIFFERENTIAL Performed By: #### CBCA #### [facility] ([facility]) [address] [place] [address] VIR MAGNESIUM Collected: 09/20/2024 2:59 AM S tatus: COMPLETED Source: [facility] TYPE CODE TESTS RESULT OUT OF RANGE REFERENCE UNITS LAB MG MAGNESIUM 1.8 1.8-2.6 mg/dL Performed By: #### MG #### [facility] ([facility]) [address] [place] [address] VIR PHOSPHORUS Collected: 09/20/2024 2:59 AM S tatus: COMPLETED Source: [facility] TYPE CODE TESTS RESULT OUT OF RANGE REFERENCE UNITS LAB PHOS PHOSPHORUS 3.5 2.4-4.9 mg/dL Performed By: #### PHOS #### [facility] ([facility]) [address] [place] [address] VIR BASIC METABOLIC PANEL Collected: 09/20/2024 2:5 9 AM Status: COMPLETED Source: [facility] TYPE CODE TESTS RESULT OUT OF RANGE REFERENCE UNITS LAB NA SODIUM 154 High 134-146 mmol/L LAB K POTASSIUM 4.0 3.5-5.0 mmol/L LAB CL CHLORIDE 119 High 98-109 mmol/L LAB CO2 CARBON DIOXIDE 24 22-32 mmol/L LAB AGAP ANION GAP 11 5-15 mmol/L LAB BUN BLOOD UREA NITROGEN 38 High 5-23 mg/dL LAB CRET CREATININE 2.60 High 0.40-1.00 mg/dL Result Comment: METHOD TRACE ABLE TO IDMS STANDARD LAB GLU GLUCOSE 149 High 65-99 mg/dL LAB CA CALCIUM 9.3 8.5-10.5 mg/dL LAB EGFR EGFR (CKD-EPI) NON-RACE DEPENDENT 21 Low >=60 ml/min/1. 73sq.m Result Comment: Reported eGF R is based on the CKD-EPI 2020 equation that does not use a race coefficient. Performed By: #### BMP #### [facility] ([facility]) [address] [place] [address] VIR MR BRAIN SYNAPTIVE Observed: 09/20/2024 12:17 AM Status: COMPLETED Source: [facility] MR BRAIN SYNAPTIVE History: Right temporal lobe mass shown on brain CT COMPARISON: Brain CT from September 18 outside facility [facility] PROCEDURE: Multiplanar multisequence images performed through the [...] for surgical planning. I favor a primary [employer] neoplasm such as a glioblastoma or astrocytoma. Metastasis can also present in this fashion. Finalized by Juan Antonio Lindquist MD on 09/20/2024 7:17 AM ELECTROLYTE PANEL Collected: 09/19/2024 7:58 PM Status: COMPLETED Source: [facility] TYPE CODE TESTS RESULT OUT OF RANGE REFERENCE UNITS LAB NA SODIUM 154 High 134-146 mmol/L LAB K POTASSIUM 4.3 3.5-5.0 mmol/L LAB CL CHLORIDE 119 High 98-109 mmol/L LAB CO2 CARBON DIOXIDE 24 22-32 mmol/L LAB AGAP ANION GAP 11 5-15 mmol/L Performed By: #### ELEC #### [facility] ([facility]) [address] [place] [address] VIR ELECTROLYTE PANEL Collected: 12:23 PM Status: COMPLETED Source: [facility] TYPE CODE TESTS RESULT OUT OF RANGE REFERENCE UNITS LAB NA SODIUM 152 High 134-146 mmol/L LAB K POTASSIUM 4.5 3.5-5.0 mmol/L LAB CL CHLORIDE 118 High 98-109 mmol/L LAB CO2 CARBON DIOXIDE 21 Low 22-32 mmol/L LAB AGAP ANION GAP 13 5-15 mmol/L Performed By: #### ELEC #### [facility] ([facility]) [address] [place] [address] VIR US RETROPERITONEAL COMPLETE Observed: 09/19/2024 6:06 AM Status: COMPLETED Source: [facility] [facility] RETROPERITONEAL COMPLETE US RETROPERITONEAL COMPLETE HISTORY: Acute [...] Mao Varner MD on 09/19/2024 6:46 AM CBC WITH AUTO DIFFERENTIAL Collected: 0 09/19/2024 4:46 AM Status: COMPLETED Source: [facility] TYPE CODE TESTS RESULT OUT OF RANGE REFERENCE UNITS LAB WBC WBC 9.2 4-11 x10E9/L LAB RBC RBC COUNT 4.23 3.8-5.2 X10E12/L LAB HGB HEMOGLOBIN 11.4 Low 11.7-15.5 g/dL LAB HCT HEMATOCRIT 34.9 Low 35-47 % LAB MCV MCV 82 80-100 fL LAB MCH MCH 27.0 27-34 pg LAB MCHC MCHC 32.8 32-36 g/dL LAB RDW RDW 15.6 High 11.5-15 % LAB PLTC PLATELET COUNT 189 150-450 X10E9/L LAB MPV MPV 9.2 7-12 fL LAB NEUT NEUTROPHILS RELATIVE PERCENT BY AUTOMATED COUNT 79.6 % LAB LYMP LYMPHOCYTES RELATIVE PERCENT BY AUTOMATED COUNT 7.9 % LAB MONO MONOCYTES RELATIVE PERCENT BY AUTOMATED COUNT 8.9 % LAB EOS EOSINOPHILS RELATIVE PERCENT BY AUTOMATED COUNT 2.8 % LAB BASO BASOPHILS RELATIVE PERCENT BY AUTOMATED COUNT 0.8 % LAB ANEUT NEUTROPHILS ABSOLUTE COUNT BY AUTOMATED COUNT 7.3 10*3/uL LAB ALYMP LYMPHOCYTES ABSOLUTE COUNT (10*3/UL) BY AUTOMATED COUNT 0.7 10*3/uL LAB AMONO MONOCYTES ABSOLUTE COUNT (10*3/UL) BY AUTOMATED COUNT 0.8 10*3/uL LAB AEOS EOSINOPHILS ABSOLUTE COUNT (10*3/UL) BY AUTOMATED COUNT 0.3 10*3/uL LAB ABASO BASOPHILS ABSOLUTE COUNT (10*3/UL) BY AUTOMATED COUNT 0.1 10*3/uL LAB DTYPE CELLAVISION DIFFERENTIAL TYPE AUTOMATED DIFFERENTIAL Performed By: #### CBCA #### [facility] ([facility]) [address] [place] [address] VIR ELECTROLYTE PANEL Collected: 09/19/2024 4:12 AM Status: COMPLETED Source: [facility] TYPE CODE TESTS RESULT OUT OF RANGE REFERENCE UNITS LAB NA SODIUM 156 High 134-146 mmol/L LAB K POTASSIUM 4.3 3.5-5.0 mmol/L LAB CL CHLORIDE 119 High 98-109 mmol/L LAB CO2 CARBON DIOXIDE 22 22-32 mmol/L LAB AGAP ANION GAP 15 5-15 mmol/L Performed By: #### ELEC #### [facility] ([facility]) [facility] [place] [address] VIR MYOGLOBIN, SERUM Collected: 09/19/2024 4:12 AM Status: COMPLETED Source: [facility] TYPE CODE TESTS RESULT OUT OF RANGE REFERENCE UNITS LAB MYOG SERUM MYOGLOBIN 33.4 14.3-65.8 ng/mL Performed By: #### MYOG #### [facility] ([facility]) [address] [place] [address] VIR MAGNESIUM Collected: 09/19/2024 4:12 AM S tatus: COMPLETED Source: [facility] TYPE CODE TESTS RESULT OUT OF RANGE REFERENCE UNITS LAB MG MAGNESIUM 2.4 1.8-2.6 mg/dL Performed By: #### MG #### [facility] ([facility]) [address] [place] [address] VIR PHOSPHORUS Collected: 09/19/2024 4:12 AM S tatus: COMPLETED Source: [facility] TYPE CODE TESTS RESULT OUT OF RANGE REFERENCE UNITS LAB PHOS PHOSPHORUS 5.8 High 2.4-4.9 mg/dL Performed By: #### PHOS #### [facility] ([facility]) [address] [place] [address] VIR BASIC METABOLIC PANEL Collected: 09/19/2024 4:1 2 AM Status: COMPLETED Source: [facility] TYPE CODE TESTS RESULT OUT OF RANGE REFERENCE UNITS LAB NA SODIUM 159 High 134-146 mmol/L LAB K POTASSIUM 4.5 3.5-5.0 mmol/L LAB CL CHLORIDE 120 High 98-109 mmol/L LAB CO2 CARBON DIOXIDE 22 22-32 mmol/L LAB AGAP ANION GAP 17 High 5-15 mmol/L LAB BUN BLOOD UREA NITROGEN 81 High 5-23 mg/dL LAB CRET CREATININE 7.54 High 0.40-1.00 mg/dL Result Comment: METHOD TRACE ABLE TO IDMS STANDARD LAB GLU GLUCOSE 107 High 65-99 mg/dL LAB CA CALCIUM 9.2 8.5-10.5 mg/dL LAB EGFR EGFR (CKD-EPI) NON-RACE DEPENDENT 6 Low >=60 ml/min/1. 73sq.m Result Comment: Reported eGF R is based on the CKD-EPI 2020 equation that does not use a race coefficient. Performed By: #### BMP #### [facility] ([facility]) [address] [place] [address] VIR CK TOTAL Collected: 09/19/2024 4:12 AM S tatus: COMPLETED Source: [facility] TYPE CODE TESTS RESULT OUT OF RANGE REFERENCE UNITS LAB CPK CPK 18 Low 24-170 U/L Performed By: #### CPK #### [facility] ([facility]) [address] [place] [address] VIR COMPLEMENT PROFILE (C3 AND C4) Collected: 09/19 4:12 AM Status: COMPLETED Source: [facility] TYPE CODE TESTS RESULT OUT OF RANGE REFERENCE UNITS LAB C3 COMPLEMENT C3 196 High 86-184 mg/dL LAB C4 COMPLEMENT C4 42 16-47 mg/dL Performed By: #### C34 #### [facility] ([facility]) [address] [place] [address] VIR THYROID PROFILE INCLUDES TSH FT4 Collected: 09/19/2024 4:12 AM Status: COMPLETED Source: [facility] TYPE CODE TESTS RESULT OUT OF RANGE REFERENCE UNITS LAB FT4 FREE T4 0.86 0.61-1.60 ng/dL LAB TSH TSH 2.80 0.49-4.67 uIU/mL Performed By: #### THYR #### [facility] ([facility]) [address] [place] [address] VIR PROCALCITONIN Collected: 09/19/2024 4:12 AM Status: COMPLETED Source: [facility] Order Comment: <0.50 ng/mL - Low risk of severe sepsis and/or septic shock. <2.00 ng/mL - Recommend retesting within 6-24 hours. >2.00 ng/mL - High risk of sepsis and/or septic shock. TYPE CODE TESTS RESULT OUT OF RANGE REFERENCE UNITS LAB PCAL PROCALCITONIN 0.12 High <0.05 ng/mL Performed By: #### PCAL #### [facility] ([facility]) [address] [place] [address] VIR IRON AND TIBC Collected: 4:12 AM Status: COMPLETED Source: [facility] TYPE CODE TESTS RESULT OUT OF RANGE REFERENCE UNITS LAB FE IRON 56 50-170 ug/dL LAB TRF TRANSFERRIN 221 168-336 mg/dL LAB TIBC IRON BINDING 309 250-425 ug/dL LAB SAT IRON SATURATION 18 15-50 % SATURATION Performed By: #### FEPR #### [facility] ([facility]) [address] [place] [address] VIR FERRITIN Collected: 09/19/2024 4:12 AM S tatus: COMPLETED Source: [facility] TYPE CODE TESTS RESULT OUT OF RANGE REFERENCE UNITS LAB FERR FERRITIN 130 11-307 ng/mL Performed By: #### FERR #### [facility] ([facility]) [address] [place] [address] VIR FOLATE Collected: 09/19/2024 4:12 AM S tatus: COMPLETED Source: [facility] TYPE CODE TESTS RESULT OUT OF RANGE REFERENCE UNITS LAB FOLI FOLIC ACID 13.1 >5.8 ng/mL Performed By: #### FOLI #### [facility] ([facility]) [facility] [address] [address] VIR VITAMIN B12 Collected: 09/19/2024 4:12 AM S tatus: COMPLETED Source: [facility] TYPE CODE TESTS RESULT OUT OF RANGE REFERENCE UNITS LAB B12 VITAMIN B12 517 180-914 pg/mL Performed By: #### B12 #### [facility] ([facility]) [facility] [address] [address] VIR COLE SCREEN W/ REFLEX Collected: 09/19/2024 4:12 AM Status: COMPLETED Source: [facility] Order Comment: Testing perfo rmed using multiplex flow immunoassay. Eleven difference antigens associated with systemic autoimmunie diseases (dsDNA, Sm, Sm/WOOD GLUER, WOOD GLUER, Chromatin, SSA, SSB, Lilian-1, Sc170, Ribo P, Centromere B) are included in this sreening tests. TYPE CODE TESTS RESULT OUT OF RANGE REFERENCE UNITS LAB COLE COLE SCREEN W/REFLEX Negative Negative Performed By: #### COLE #### [facility] ([facility]) [facility] [address] [address] VIR PROTEINASE 3 AB PR3 Collected: 09/19/2024 4:12 AM Status: COMPLETED Source: [facility] TYPE CODE TESTS RESULT OUT OF RANGE REFERENCE UNITS LAB PR3G PROTEINASE 3 IGG AB <^0.2 <1.0 AI Performed By: #### PR3G #### [facility] ([facility]) [address] [place] [address] VIR MYELOPEROXIDASE AB Collected: 09/19/2024 4:12 AM Sta tus: COMPLETED Source: [facility] TYPE CODE TESTS RESULT OUT OF RANGE REFERENCE UNITS LAB MPO MYELOPEROXIDASE AB <^0.2 <1.0 AI Performed By: #### MPO #### [facility] ([facility]) [address] [place] [address] VIR GLOMERULAR BASEMENT MEMBRANE IGG AB Collected: 09/19/2024 4:12 AM Status: COMPLETED Source: [facility] TYPE CODE TESTS RESULT OUT OF RANGE REFERENCE UNITS LAB GBM GBM IGG AB <^0.2 <1.0 AI Performed By: #### GBM #### [facility] ([facility]) [address] [place] [address] VIR BEDSIDE GLUCOSE Collected: 09/19/2024 4:07 AM Status: COMPLETED Source: [facility] TYPE CODE TESTS RESULT OUT OF RANGE REFERENCE UNITS LAB BEDG BEDSIDE GLUCOSE ???BEDG 110 High 65-99 mg/dL Performed By: #### BEDG #### [facility] ([facility]) [address] [place] [address] VIR BLOOD GAS, ARTERIAL Collected: 09/19/2024 3:47 AM Status: COMPLETED Source: [facility] TYPE CODE TESTS RESULT OUT OF RANGE REFERENCE UNITS LAB STYP SAMPLE TYPE ARTERIAL LAB PH PH ARTERIAL 7.364 7.350-7.450 NA LAB PCO2 PCO2 ARTERIAL 29.4 Low 35.0-45.0 mmHg LAB PO2 PO2 ARTERIAL 78 Low 80-100 mmHg LAB BZD BASE,DEFICIT -8.0 Low 0.0-2.0 mmol/L LAB HCO3 HCO3 ARTERIAL 16.8 Low 22.0-26.0 mmol/L LAB SO2M %O2 SATURATION ARTERIAL 95.0 >90.0 % LAB ALN POC WILI'S TEST Pass LAB SPO2 SPO2 78 % LAB SSIT SAMPLE SITE L Rad LAB OXY SOURCE OF OXYGEN Room Air Performed By: #### ABG #### [facility] ([facility]) [address] [place] [address] VIR POCT NURSING URINE MACROSCOPIC UA Collected: 09/19/2024 1:37 AM Status: COMPLETED Source: [facility] TYPE CODE TESTS RESULT OUT OF RANGE REFERENCE UNITS LAB SPGRN SPECIFIC GRAVITY SORIN 1.020 1.010, 1.015, 1.020, 1.025 LAB LESTN LEUKOCYTE ESTERASE SORIN Negative Negative LAB NITN NITRITE SORIN Negative Negative LAB PHURN PH SORIN 5.5 5.0, 6.0, 6.5, 7.0, 7.5, 8.0, 8.5, 5.5 LAB PRURN PROTEIN SORIN 100 mg/dL Abnormal Negative LAB GLURN GLUCOSE SORIN Negative Negative LAB KETN KETONES SORIN Negative Negative LAB UROBN UROBILINOGEN SORIN 0.2 E.U./dL 0.2 E.U./dL, 1.0 E.U./dL LAB BILEN BILIRUBIN SORIN Negative Negative LAB BLURN BLOOD/HGB SORIN Large Abnormal Negative Performed By: #### NUM #### [facility] ([facility]) [address] [place] [address] VIR TROP I, HIGH SENSITIVITY 1 HOUR Collected: 07/2024 1:23 AM Status: COMPLETED Source: [facility] TYPE CODE TESTS RESULT OUT OF RANGE REFERENCE UNITS LAB TNIHS TROPONIN I, HIGH SENSITIVITY 10 <16 ng/L Performed By: #### [email or web address] ## ## [facility] ([facility]) [address] [place] [address] VIR SODIUM, URINE, RANDOM Collected: 09/19/2024 1:2 3 AM Status: COMPLETED Source: [facility] TYPE CODE TESTS RESULT OUT OF RANGE REFERENCE UNITS LAB UNAR URINE SODIUM,RANDOM 69 mmol/L Performed By: #### UNAR #### [facility] ([facility]) [address] [place] [address] VIR URINE CREATININE,RANDOM Collected: 07/2024 1:23 AM Status: COMPLETED Source: [facility] TYPE CODE TESTS RESULT OUT OF RANGE REFERENCE UNITS LAB UCRR URINE CREATININE,RD M 83.54 mg/dL Performed By: #### UCRR #### [facility] ([facility]) [address] [place] [address] VIR PROTEIN CREAT RATIO Collected: 09/19/2024 1:23 AM Status: COMPLETED Source: [facility] Order Comment: Nephrotic Syn drome is associated with ratios >3.5 TYPE CODE TESTS RESULT OUT OF RANGE REFERENCE UNITS LAB UTPR URINE PROTEIN, RANDOM (MG/L) 1350 High <120 mg/L LAB UCRR URINE CREATININE,RDM 83.54 mg/dL LAB UPCRC U/PRO/OPEN HEARTH FURNACE LABORER RATIO CALC 1.62 High <=0.20 NA Performed By: #### UPCR #### [facility] ([facility]) [address] [place] [address] VIR URINALYSIS Collected: 09/19/2024 1:23 AM S tatus: COMPLETED Source: [facility] Order Comment: Urine receive d without preservative. Delays in transport may affect results. Interpret with caution. A clinical correlation is recommended. TYPE CODE TESTS RESULT OUT OF RANGE REFERENCE UNITS LAB COLP COLOR Colorless Yellow, Colorless LAB TURB TURBIDITY Hazy Abnormal Clear LAB SPGR SPECIFIC GRAVITY 1.013 1.003-1.035 NA LAB NITR NITRITE Negative Negative LAB PHUR PH,URINE 5.5 5.0-8.5 NA LAB LEST LEUKOCYTE ESTERASE Small Abnormal Negative LAB PRU PROTEIN 70 mg/dL Abnormal Negative LAB KET KETONES (URINE) Negative Negative LAB UROB UROBILINOGEN <1.1 eu/dL <1.1 eu/dL LAB BILEU BILIRUBIN (URINE) Negative Negative LAB BLUR BLOOD/HGB Moderate Abnormal Negative LAB MUCU MUCOUS Present Abnormal None LAB RBCU R.B.CELLS 17 High 0-5 NA LAB SEP SQUAMOUS EPITHELIUM 1 0-5 NA LAB WBCU W.B.CELLS 39 High 0-5 NA LAB GLUR GLUCOSE (URINE) Negative Negative Performed By: #### UA #### [facility] ([facility]) [address] [place] [address] VIR BLOOD CULTURE Observed: 09/19/2024 1:23 AM Status: COMPLETED Source: [facility] Order Comment: *SIRS Criteri a: (must display 2 without other explanation) -Temperature < 36 or >38 -Pulse >90 -Resp rate >20 -WBC less than 4K or greater than 12K Repeat blood cultures not needed: -To document that a blood culture is a contaminant when 1 of 2 bottles is positive for a common contaminant (already listed in Epic with the culture result) -To document clearance of gram negative bacteremia in patients with suspected urinary source who are improving Suboptimal volume of blood collected, Results may be affected. CULTURE RESULTS STAPHYLOCOCCUS, COAGULASE NEGATIVE Staphylococcus, coagulase negative Not S. Lugdunensis Possible Collection Contamination STAPHYLOCOCCUS, COAGULASE NEGATIVE Staphylococcus, coagulase negative Not S. Lugdunensis Variant Possible Collection Contamination GRAM STAIN Gram positive cocci in clusters Performed By: #### BC #### [facility] ([facility]) [address] [place] [address] VIR CBC WITH AUTO DIFFERENTIAL Collected: 0 09/19/2024 12:26 AM Status: COMPLETED Source: [facility] TYPE CODE TESTS RESULT OUT OF RANGE REFERENCE UNITS LAB WBC WBC 10.3 4-11 x10E9/L LAB RBC RBC COUNT 4.16 3.8-5.2 X10E12/L LAB HGB HEMOGLOBIN 11.5 Low 11.7-15.5 g/dL LAB HCT HEMATOCRIT 34.9 Low 35-47 % LAB MCV MCV 84 80-100 fL LAB MCH MCH 27.7 27-34 pg LAB MCHC MCHC 33.1 32-36 g/dL LAB RDW RDW 15.7 High 11.5-15 % LAB PLTC PLATELET COUNT 199 150-450 X10E9/L LAB MPV MPV 9.2 7-12 fL LAB NEUT NEUTROPHILS RELATIVE PERCENT BY AUTOMATED COUNT 79.3 % LAB LYMP LYMPHOCYTES RELATIVE PERCENT BY AUTOMATED COUNT 7.5 % LAB MONO MONOCYTES RELATIVE PERCENT BY AUTOMATED COUNT 9.2 % LAB EOS EOSINOPHILS RELATIVE PERCENT BY AUTOMATED COUNT 3.4 % LAB BASO BASOPHILS RELATIVE PERCENT BY AUTOMATED COUNT 0.6 % LAB ANEUT NEUTROPHILS ABSOLUTE COUNT BY AUTOMATED COUNT 8.2 10*3/uL LAB ALYMP LYMPHOCYTES ABSOLUTE COUNT (10*3/UL) BY AUTOMATED COUNT 0.8 10*3/uL LAB AMONO MONOCYTES ABSOLUTE COUNT (10*3/UL) BY AUTOMATED COUNT 0.9 10*3/uL LAB AEOS EOSINOPHILS ABSOLUTE COUNT (10*3/UL) BY AUTOMATED COUNT 0.4 10*3/uL LAB ABASO BASOPHILS ABSOLUTE COUNT (10*3/UL) BY AUTOMATED COUNT 0.1 10*3/uL LAB DTYPE CELLAVISION DIFFERENTIAL TYPE AUTOMATED DIFFERENTIAL Performed By: #### CBCA #### [facility] ([facility]) [address] [place] [address] VIR PROTIME AND INR Collected: 12:26 AM Status: COMPLETED Source: [facility] TYPE CODE TESTS RESULT OUT OF RANGE REFERENCE UNITS LAB PROX PROTIME 14.0 High 9.8-13.2 sec LAB INR INR 1.2 0.9-1.2 NA Performed By: #### PINR #### [facility] ([facility]) [facility] [place] [address] VIR APTT Collected: 12:26 AM Status: COMPLETED Source: [facility] TYPE CODE TESTS RESULT OUT OF RANGE REFERENCE UNITS LAB PTT APTT 28 26-37 sec Performed By: #### PTT #### [facility] ([facility]) [address] [place] [address] VIR AMMONIA Collected: 12:26 AM Status: COMPLETED Source: [facility] TYPE CODE TESTS RESULT OUT OF RANGE REFERENCE UNITS LAB RONIT AMMONIA 24 18-72 umol/L Performed By: #### RONIT ### # [facility] ([facility]) [address] [place] [address] VIR LACTATE W/ REFLEX Collected: 12:26 AM Status: COMPLETED Source: [facility] Order Comment: Result did no t trigger repeat Lactate, re-order if needed. TYPE CODE TESTS RESULT OUT OF RANGE REFERENCE UNITS LAB LACTS LACTATE W/REFLEX 0.7 0.4-2.0 mmol/L Performed By: #### LACTS ### # [facility] ([facility]) [address] [place] [address] VIR COMPREHENSIVE METABOLIC PANEL Collected : 09/19/2024 12:26 AM Status: COMPLETED Source: [facility] TYPE CODE TESTS RESULT OUT OF RANGE REFERENCE UNITS LAB NA SODIUM 151 High 134-146 mmol/L LAB K POTASSIUM 4.6 3.5-5.0 mmol/L LAB CL CHLORIDE 120 High 98-109 mmol/L LAB CO2 CARBON DIOXIDE 14 Low 22-32 mmol/L LAB AGAP ANION GAP 17 High 5-15 mmol/L LAB BUN BLOOD UREA NITROGEN 91 High 5-23 mg/dL LAB CRET CREATININE 9.65 High 0.40-1.00 mg/dL Result Comment: METHOD TRACE ABLE TO IDMS STANDARD LAB GLU GLUCOSE 103 High 65-99 mg/dL LAB CA CALCIUM 9.3 8.5-10.5 mg/dL LAB TP TOTAL PROTEIN 6.8 6.0-8.0 g/dL LAB ALB ALBUMIN 3.4 3.2-5.3 g/dL LAB ALK ALKALINE PHOSPHATASE 73 39-130 U/L LAB AST AST 8 <=41 U/L LAB ALT ALT 4 <=31 U/L LAB TBIL BILIRUBIN,TOTAL 0.4 0.3-1.2 mg/dL LAB EGFR EGFR (CKD-EPI) NON-RACE DEPENDENT 4 Low >=60 ml/min/1 .73sq.m Result Comment: Reported eGF R is based on the CKD-EPI 2020 equation that does not use a race coefficient. Performed By: #### CMP #### [facility] ([facility]) [address] [place] [address] VIR CK TOTAL Collected: 12:26 AM Status: COMPLETED Source: [facility] TYPE CODE TESTS RESULT OUT OF RANGE REFERENCE UNITS LAB CPK CPK 18 Low 24-170 U/L Performed By: #### CPK #### [facility] ([facility]) [facility] [address] [place] [address] VIR HEMOGLOBIN A1C Collected: 09/19/2024 12:26 AM Status: COMPLETED Source: [facility] TYPE CODE TESTS RESULT OUT OF RANGE REFERENCE UNITS LAB HBA1C HEMOGLOBIN A1C 5.4 4.4-5.6 % Result Comment: ADA Guidelin es Result HgbA1c Normal : less than 5.7 % Prediabetes : 5.7 % to 6.4 % Diabetes : > 6.4 % Use with caution in patients with abnormal hemoglobin variants as the half-life of red blood cells and in vivo glycation rates are affected. LAB EAG EST. AVERAGE GLUCOSE 108 mg/dL Performed By: #### HA1C #### [facility] ([facility]) [facility] [place] [address] VIR BLOOD CULTURE Observed: 09/19/2024 12:26 AM Status: COMPLETED Source: [facility] Order Comment: *SIRS Criteri a: (must display 2 without other explanation) -Temperature < 36 or >38 -Pulse >90 -Resp rate >20 -WBC less than 4K or greater than 12K Repeat blood cultures not needed: -To document that a blood culture is a contaminant when 1 of 2 bottles is positive for a common contaminant (already listed in Epic with the culture result) -To document clearance of gram negative bacteremia in patients with suspected urinary source who are improving CULTURE RESULTS NO GROWTH 5 DAYS Performed By: #### BC #### [facility] ([facility]) [address] [place] [address] VIR TROPONIN I, HIGH SENSITIVITY 0 HOUR Collected: 09/19/2024 12:26 AM Status: COMPLETED Source: [facility] TYPE CODE TESTS RESULT OUT OF RANGE REFERENCE UNITS LAB TNIHS TROPONIN I, HIGH SENSITIVITY 11 <16 ng/L Performed By: #### [email or web address] ## ## [facility] ([facility]) [address] [place] [address] VIR CBC AND AUTO DIFF Collected: 09/01/2024 4:26 AM Status: COMPLETED Source: [facility] TYPE CODE TESTS RESULT OUT OF RANGE REFERENCE UNITS LAB WBC(LOINC) WBC COUNT 10.1 4.0-11.0 X10E9/L LAB RBC(LOINC) RBC COUNT 4.36 3.80-5.20 X10E12/L LAB HGB(LOINC) HEMOGLOBIN 12.2 11.7-15.5 g/dL LAB HCT(LOINC) HEMATOCRIT 36.0 35-47 % LAB MCV(LOINC) MCV 82 80-100 fL LAB MCH(LOINC) MCH 28.0 27-34 pg LAB MCHC(LOINC) MCHC 34.0 32-36 g/dL LAB RDW(LOINC) RDW 15.4 High 11.5-15.0 % LAB PLTC(LOINC) PLATELET COUNT 215 150-450 X10E9 /L LAB MPV(LOINC) MPV 9.4 7-12 fL LAB NEUT(LOINC) % NEUTROPHILS 74.8 % LAB LYMP(LOINC) % LYMPHOCYTES 9.4 % LAB MONO(LOINC) % MONOCYTES 13.8 % LAB EOS(LOINC) % EOSINOPHILS 1.3 % LAB BASO(LOINC) % BASOPHILS 0.7 % LAB ANEUT(LOINC) ABSOLUTE NEUTROPHIL 7.5 High 1.5-6.6 X10E9/L LAB ALYMP(LOINC) ABSOLUTE LYMPHOCYTE 0.9 Low 1.0-3.5 X10E9/L LAB AMONO(LOINC) ABSOLUTE MONOCYTE 1.4 High 0-0.9 X10E9/L LAB AEOS(LOINC) ABSOLUTE EOSINOPHIL 0.1 0.0-0.4 X10E9/L LAB ABASO(LOINC) ABSOLUTE BASOPHIL 0.1 0.0-0.2 X10E9/L Performed By: #### CBCA, CMP , 35663-5, 2639-3, 2157-6 #### [facility] ([id number]) [address] [place] [address], [place] [address] COMPREHENSIVE METABOLIC PANEL Collected: 2024 4:26 AM Status: COMPLETED Source: [facility] TYPE CODE TESTS RESULT OUT OF RANGE REFERENCE UNITS LAB NA(LOINC) SODIUM 141 134-146 mmol/L LAB K(LOINC) POTASSIUM 4.1 3.5-5.0 mmol/L LAB CL(LOINC) CHLORIDE 106 98-109 mmol/L LAB CO2(LOINC) CARBON DIOXIDE 24 22-32 mmol/L LAB AGAP(LOINC) ANION GAP 11 5-15 mmol/L LAB BUN(LOINC) BLOOD UREA NITROGEN 12 5-23 mg/dL LAB CRET(LOINC) CREATININE 0.87 0.40-1.00 mg/dL Result Comment: METHOD TRACE ABLE TO IDMS STANDARD LAB GLU(LOINC) GLUCOSE 108 High 65-99 mg/dL LAB CA(LOINC) CALCIUM 8.5 8.5-10.5 mg/dL LAB TP(LOINC) TOTAL PROTEIN 6.6 6.0-8.0 g/dL LAB ALB(LOINC) ALBUMIN 2.6 Low 3.2-5.3 g/dL LAB ALK(LOINC) ALKALINE PHOSPHATASE 101 39-130 U/L LAB AST(LOINC) AST 32 0-41 U/L LAB ALT1(LOINC) ALT 34 High 0-31 U/L LAB TBIL(LOINC) BILIRUBIN,TOTAL 0.5 0.3-1.2 mg/d L LAB EGFR(LOINC) eGFR (CKD-EPI) NON-RACE DEPENDENT 78 >59 ml/min/1 .73sq.m Result Comment: Reported eGFR is based on the CKD-EPI 2020 equation that does not use a race coefficient. Performed By: #### YULIANA, SINDY , 85249-7, 2639-3, 2157-6 #### [facility] ([id number]) [address] [place] [id number] MAGNESIUM Collected: 09/01/2024 4:26 AM S tatus: COMPLETED Source: [facility] TYPE CODE TESTS RESULT OUT OF RANGE REFERENCE UNITS LAB MG(LOINC) MAGNESIUM 2.0 1.8-2.6 mg/dL Performed By: #### SINDY BRIDGES , 34505-9, 2639-3, 2157-6 #### [facility] ([id number]) [address] [place] [id number] SERUM MYOGLOBIN Collected: 09/01/2024 4:26 AM Status: COMPLETED Source: [facility] TYPE CODE TESTS RESULT OUT OF RANGE REFERENCE UNITS LAB MYOG(LOINC) SERUM MYOGLOBIN 53.7 14.3-65.8 ng/mL Performed By: #### SINDY BRIDGES , 93914-2, 2639-3, 2157-6 #### [facility] ([id number]) [address] [place] [address] [id number] CPK Collected: 09/01/2024 4:26 AM S tatus: COMPLETED Source: [facility] TYPE CODE TESTS RESULT OUT OF RANGE REFERENCE UNITS LAB CPK(LOINC) CPK 188 High 24-170 U/L Performed By: #### YULIANA, SINDY , 39143-3, 2639-3, 2157-6 #### [facility] ([id number]) [address] [place] [address] [id number] CPK Collected: 08/31/2024 5:20 PM S tatus: COMPLETED Source: [facility] TYPE CODE TESTS RESULT OUT OF RANGE REFERENCE UNITS LAB CPK(LOINC) CPK 324 High 24-170 U/L Performed By: #### 2157-6 ## ## [facility] ([id number]) [address] [place] [address] 04054 SERUM MYOGLOBIN Collected: 08/31/2024 5:20 PM Status: COMPLETED Source: [facility] TYPE CODE TESTS RESULT OUT OF RANGE REFERENCE UNITS LAB MYOG(LOINC) SERUM MYOGLOBIN 47.5 14.3-65.8 ng/mL Performed By: #### 2639-3 ## ## [facility] ([id number]) [address] [place] [address] 57229 POTASSIUM Collected: 11:05 AM Status: COMPLETED Source: [facility] TYPE CODE TESTS RESULT OUT OF RANGE REFERENCE UNITS LAB K(LOINC) POTASSIUM 4.0 3.5-5.0 mmol/L Performed By: #### 2823-3 ## ## [facility] ([id number]) [address] [place] [address] 98902 CBC AND AUTO DIFF Collected: 08/31/2024 5:13 AM Status: COMPLETED Source: [facility] TYPE CODE TESTS RESULT OUT OF RANGE REFERENCE UNITS LAB WBC(LOINC) WBC COUNT 9.9 4.0-11.0 X10E9/L LAB RBC(LOINC) RBC COUNT 4.31 3.80-5.20 X10E12/L LAB HGB(LOINC) HEMOGLOBIN 12.1 11.7-15.5 g/dL LAB HCT(LOINC) HEMATOCRIT 35.7 35-47 % LAB MCV(LOINC) MCV 83 80-100 fL LAB MCH(LOINC) MCH 28.1 27-34 pg LAB MCHC(LOINC) MCHC 33.9 32-36 g/dL LAB RDW(LOINC) RDW 15.8 High 11.5-15.0 % LAB PLTC(LOINC) PLATELET COUNT 206 150-450 X10E9 /L LAB MPV(LOINC) MPV 10.0 7-12 fL LAB NEUT(LOINC) % NEUTROPHILS 75.1 % LAB LYMP(LOINC) % LYMPHOCYTES 8.5 % LAB MONO(LOINC) % MONOCYTES 14.1 % LAB EOS(LOINC) % EOSINOPHILS 1.4 % LAB BASO(LOINC) % BASOPHILS 0.9 % LAB ANEUT(LOINC) ABSOLUTE NEUTROPHIL 7.4 High 1.5-6.6 X10E9/L LAB ALYMP(LOINC) ABSOLUTE LYMPHOCYTE 0.8 Low 1.0-3.5 X10E9/L LAB AMONO(LOINC) ABSOLUTE MONOCYTE 1.4 High 0-0.9 X10E9/L LAB AEOS(LOINC) ABSOLUTE EOSINOPHIL 0.1 0.0-0.4 X10E9/L LAB ABASO(LOINC) ABSOLUTE BASOPHIL 0.1 0.0-0.2 X10E9/L Performed By: #### CBCA, CMP , 49950-7, 2639-3, 2157-6 #### [facility] ([id number]) [address] [place] [address], [place] [address] COMPREHENSIVE METABOLIC PANEL Collected: 2024 5:13 AM Status: COMPLETED Source: [facility] TYPE CODE TESTS RESULT OUT OF RANGE REFERENCE UNITS LAB NA(LOINC) SODIUM 140 134-146 mmol/L LAB K(LOINC) POTASSIUM 3.7 3.5-5.0 mmol/L LAB CL(LOINC) CHLORIDE 107 98-109 mmol/L LAB CO2(LOINC) CARBON DIOXIDE 24 22-32 mmol/L LAB AGAP(LOINC) ANION GAP 9 5-15 mmol/L LAB BUN(LOINC) BLOOD UREA NITROGEN 8 5-23 mg/dL LAB CRET(LOINC) CREATININE 0.83 0.40-1.00 mg/dL Result Comment: METHOD TRACE ABLE TO IDMS STANDARD LAB GLU(LOINC) GLUCOSE 101 High 65-99 mg/dL LAB CA(LOINC) CALCIUM 8.2 Low 8.5-10.5 mg/dL LAB TP(LOINC) TOTAL PROTEIN 6.3 6.0-8.0 g/dL LAB ALB(LOINC) ALBUMIN 2.5 Low 3.2-5.3 g/dL LAB ALK(LOINC) ALKALINE PHOSPHATASE 75 39-130 U/L LAB AST(LOINC) AST 36 0-41 U/L LAB ALT1(LOINC) ALT 31 0-31 U/L LAB TBIL(LOINC) BILIRUBIN,TOTAL 0.5 0.3-1.2 mg/d L LAB EGFR(LOINC) eGFR (CKD-EPI) NON-RACE DEPENDENT 83 >59 ml/min/1 .73sq.m Result Comment: Reported eGFR is based on the CKD-EPI 2020 equation that does not use a race coefficient. Performed By: #### CBCA, CMP , 79575-5, 2639-3, 2157-6 #### [facility] ([id number]) [address] [place] [address] 04079 MAGNESIUM Collected: 08/31/2024 5:13 AM S tatus: COMPLETED Source: [facility] TYPE CODE TESTS RESULT OUT OF RANGE REFERENCE UNITS LAB MG(LOINC) MAGNESIUM 2.0 1.8-2.6 mg/dL Performed By: #### ELLIOTTA, CMP , 89498-2, 2639-3, 2157-6 #### [facility] ([id number]) [address] [place] [address] 83773 SERUM MYOGLOBIN Collected: 08/31/2024 5:13 AM Status: COMPLETED Source: [facility] TYPE CODE TESTS RESULT OUT OF RANGE REFERENCE UNITS LAB MYOG(LOINC) SERUM MYOGLOBIN 62.9 14.3-65.8 ng/mL Performed By: #### CBCA, CMP , 78424-9, 2639-3, 2157-6 #### [facility] ([id number]) [address] [place] [address] 88520 CPK Collected: 08/31/2024 5:13 AM S tatus: COMPLETED Source: [facility] TYPE CODE TESTS RESULT OUT OF RANGE REFERENCE UNITS LAB CPK(LOINC) CPK 405 High 24-170 U/L Performed By: #### CBCA, CMP , 93172-0, 2639-3, 2157-6 #### [facility] ([id number]) [address] [place] [address] 86290 CPK Collected: 08/30/2024 8:51 PM S tatus: COMPLETED Source: [facility] TYPE CODE TESTS RESULT OUT OF RANGE REFERENCE UNITS LAB CPK(LOINC) CPK 563 High 24-170 U/L Performed By: #### 2157-6, 2 639-3 #### [facility] ([id number]) [address] [place] [address] 09837 SERUM MYOGLOBIN Collected: 08/30/2024 8:51 PM Status: COMPLETED Source: [facility] TYPE CODE TESTS RESULT OUT OF RANGE REFERENCE UNITS LAB MYOG(LOINC) SERUM MYOGLOBIN 67.5 High 14.3-65.8 ng/mL Performed By: #### 2157-6, 2 639-3 #### [facility] ([id number]) [address] [place] [address] 42807 CPK Collected: 08/30/2024 12:58 PM Status: COMPLETED Source: [facility] TYPE CODE TESTS RESULT OUT OF RANGE REFERENCE UNITS LAB CPK(LOINC) CPK 831 High 24-170 U/L Performed By: #### 2157-6, 2 639-3 #### [facility] ([id number]) [address] [place] [address] 70914 SERUM MYOGLOBIN Collected: 08/30/2024 12:58 PM Status: COMPLETED Source: [facility] TYPE CODE TESTS RESULT OUT OF RANGE REFERENCE UNITS LAB MYOG(LOINC) SERUM MYOGLOBIN 127.2 High 14.3-65.8 ng/mL Performed By: #### 2157-6, 2 639-3 #### [facility] ([id number]) [address] [place] [address] 09828 CBC AND AUTO DIFF Collected: 08/30/2024 5:14 AM Status: COMPLETED Source: [facility] TYPE CODE TESTS RESULT OUT OF RANGE REFERENCE UNITS LAB WBC(LOINC) WBC COUNT 11.4 High 4.0-11.0 X10E9/L LAB RBC(LOINC) RBC COUNT 4.41 3.80-5.20 X10E12/L LAB HGB(LOINC) HEMOGLOBIN 12.4 11.7-15.5 g/dL LAB HCT(LOINC) HEMATOCRIT 36.8 35-47 % LAB MCV(LOINC) MCV 83 80-100 fL LAB MCH(LOINC) MCH 28.0 27-34 pg LAB MCHC(LOINC) MCHC 33.6 32-36 g/dL LAB RDW(LOINC) RDW 15.0 11.5-15.0 % LAB PLTC(LOINC) PLATELET COUNT 202 150-450 X10E9 /L LAB MPV(LOINC) MPV 9.6 7-12 fL LAB NEUT(LOINC) % NEUTROPHILS 83.6 % LAB LYMP(LOINC) % LYMPHOCYTES 5.8 % LAB MONO(LOINC) % MONOCYTES 9.8 % LAB EOS(LOINC) % EOSINOPHILS 0.3 % LAB BASO(LOINC) % BASOPHILS 0.5 % LAB ANEUT(LOINC) ABSOLUTE NEUTROPHIL 9.5 High 1.5-6.6 X10E9/L LAB ALYMP(LOINC) ABSOLUTE LYMPHOCYTE 0.7 Low 1.0-3.5 X10E9/L LAB AMONO(LOINC) ABSOLUTE MONOCYTE 1.1 High 0-0.9 X10E9/L LAB AEOS(LOINC) ABSOLUTE EOSINOPHIL 0.0 0.0-0.4 X10E9/L LAB ABASO(LOINC) ABSOLUTE BASOPHIL 0.1 0.0-0.2 X10E9/L Performed By: #### CBCA, CMP , 68680-2, 2639-3, 2157-6 #### [facility] ([id number]) [address] [place] [address], [place] [address] COMPREHENSIVE METABOLIC PANEL Collected: 2024 5:14 AM Status: COMPLETED Source: [facility] TYPE CODE TESTS RESULT OUT OF RANGE REFERENCE UNITS LAB NA(LOINC) SODIUM 138 134-146 mmol/L LAB K(LOINC) POTASSIUM 3.9 3.5-5.0 mmol/L LAB CL(LOINC) CHLORIDE 106 98-109 mmol/L LAB CO2(LOINC) CARBON DIOXIDE 21 Low 22-32 mmol/L LAB AGAP(LOINC) ANION GAP 11 5-15 mmol/L LAB BUN(LOINC) BLOOD UREA NITROGEN 6 5-23 mg/dL LAB CRET(LOINC) CREATININE 0.87 0.40-1.00 mg/dL Result Comment: METHOD TRACE ABLE TO IDMS STANDARD LAB GLU(LOINC) GLUCOSE 107 High 65-99 mg/dL LAB CA(LOINC) CALCIUM 8.2 Low 8.5-10.5 mg/dL LAB TP(LOINC) TOTAL PROTEIN 6.2 6.0-8.0 g/dL LAB ALB(LOINC) ALBUMIN 2.7 Low 3.2-5.3 g/dL LAB ALK(LOINC) ALKALINE PHOSPHATASE 57 39-130 U/L LAB AST(LOINC) AST 52 High 0-41 U/L LAB ALT1(LOINC) ALT 36 High 0-31 U/L LAB TBIL(LOINC) BILIRUBIN,TOTAL 0.6 0.3-1.2 mg/d L LAB EGFR(LOINC) eGFR (CKD-EPI) NON-RACE DEPENDENT 78 >59 ml/min/1 .73sq.m Result Comment: Reported eGFR is based on the CKD-EPI 2020 equation that does not use a race coefficient. Performed By: #### SINDY BRIDGES , 55288-7, 2639-3, 2157-6 #### [facility] ([id number]) [address] [place] [address] 02039 MAGNESIUM Collected: 08/30/2024 5:14 AM S tatus: COMPLETED Source: [facility] TYPE CODE TESTS RESULT OUT OF RANGE REFERENCE UNITS LAB MG(LOINC) MAGNESIUM 2.0 1.8-2.6 mg/dL Performed By: #### SINDY BRIDGES , 03692-5, 2639-3, 2157-6 #### [facility] ([id number]) [address] [place] [address] 01192 SERUM MYOGLOBIN Collected: 08/30/2024 5:14 AM Status: COMPLETED Source: [facility] TYPE CODE TESTS RESULT OUT OF RANGE REFERENCE UNITS LAB MYOG(LOINC) SERUM MYOGLOBIN 77.9 High 14.3-65.8 ng/mL Performed By: #### CBCA, CMP , 93922-6, 2639-3, 7-6 #### [facility] ([id number]) [address] [place] [address] 10675 CPK Collected: 08/30/2024 5:14 AM S tatus: COMPLETED Source: [facility] TYPE CODE TESTS RESULT OUT OF RANGE REFERENCE UNITS LAB CPK(LOINC) CPK 1066 High 24-170 U/L Performed By: #### CBCA, CMP , 70614-4, 2639-3, 7-6 #### [facility] ([id number]) [address] [place] [address] 61584 CPK Collected: 08/29/2024 10:08 PM Status: COMPLETED Source: [facility] TYPE CODE TESTS RESULT OUT OF RANGE REFERENCE UNITS LAB CPK(LOINC) CPK 1666 High 24-170 U/L Performed By: #### 2157-6, 2 639-3 #### [facility] ([id number]) [address] [place] [address] 02837 SERUM MYOGLOBIN Collected: 08/29/2024 10:08 PM Status: COMPLETED Source: [facility] TYPE CODE TESTS RESULT OUT OF RANGE REFERENCE UNITS LAB MYOG(LOINC) SERUM MYOGLOBIN 96.4 High 14.3-65.8 ng/mL Performed By: #### 2157-6, 2 639-3 #### [facility] ([id number]) [address] [place] [address] 11684 MAGNESIUM Collected: 08/29/2024 4:23 PM S tatus: COMPLETED Source: [facility] TYPE CODE TESTS RESULT OUT OF RANGE REFERENCE UNITS LAB MG(LOINC) MAGNESIUM 2.1 1.8-2.6 mg/dL Performed By: #### 96907-7 # ### [facility] ([id number]) [address] [place] [address] 03443 CPK Collected: 08/29/2024 12:52 PM Status: COMPLETED Source: [facility] TYPE CODE TESTS RESULT OUT OF RANGE REFERENCE UNITS LAB CPK(LOINC) CPK 2774 High 24-170 U/L Performed By: #### 2157-6, 2 639-3 #### [facility] ([id number]) [address] [place] [address] 98603 #### 76183-4 #### [facility] ([id number]) [address] [place] [address], [address] [address] SERUM MYOGLOBIN Collected: 08/29/2024 12:52 PM Status: COMPLETED Source: [facility] TYPE CODE TESTS RESULT OUT OF RANGE REFERENCE UNITS LAB MYOG(LOINC) SERUM MYOGLOBIN 230.3 High 14.3-65.8 ng/mL Performed By: #### 2157-6, 2 639-3 #### [facility] ([id number]) [address] [place] [address] 81117 #### 04201-6 #### [facility] ([id number]) [address] [place] [address], [address] [address] LIPID PROFILE Collected: 08/29/2024 12:52 PM Status: COMPLETED Source: [facility] TYPE CODE TESTS RESULT OUT OF RANGE REFERENCE UNITS LAB CHOL(LOINC) CHOLESTEROL 151 150-200 mg/dL LAB TRIG(LOINC) TRIGLYCERIDE 112 27-150 mg/dL LAB HDL(LOINC) HDL CHOLESTEROL 29 Low >39 mg/dL Result Comment: HDL <40 mg/dL - High Risk HDL > or = 40mg/dL- Desirable HDL >60 mg/dL - Negative Risk LAB VLDL(LOINC) VERY LOW LIPOPROTEIN 22 0-30 mg/dL LAB LDL(LOINC) LDL (CALC) 100 <130 mg/dL Result Comment: LDL <100 mg/dL - Desirable LDL >160 mg/dL - High Risk LAB CHDL(LOINC) CHOLESTEROL:HDL 5.2 High 1.0-5.0 Performed By: #### 2157-6, 2 639-3 #### [facility] ([id number]) [address] [place] [address] #### 83871-7 #### [facility] ([id number]) [address] [place] [address], [address] [place] [address] PORTABLE ICA Collected: 08/29/2024 7:58 AM S tatus: COMPLETED Source: [facility] TYPE CODE TESTS RESULT OUT OF RANGE REFERENCE UNITS LAB IICA([facility]) PORTABLE ICA 4.6 4.5-5.3 mg/dL Performed By: #### 1994-3 ## ## [facility] ([id number]) [address] [place] [address] 42654 CBC AND AUTO DIFF Collected: 08/29/2024 4:47 AM Status: COMPLETED Source: [facility] TYPE CODE TESTS RESULT OUT OF RANGE REFERENCE UNITS LAB WBC(LOINC) WBC COUNT 7.7 4.0-11.0 X10E9/L LAB RBC(LOINC) RBC COUNT 4.42 3.80-5.20 X10E12/L LAB HGB(LOINC) HEMOGLOBIN 12.3 11.7-15.5 g/dL LAB HCT(LOINC) HEMATOCRIT 36.8 35-47 % LAB MCV(LOINC) MCV 83 80-100 fL LAB MCH(LOINC) MCH 27.8 27-34 pg LAB MCHC(LOINC) MCHC 33.4 32-36 g/dL LAB RDW(LOINC) RDW 15.7 High 11.5-15.0 % LAB PLTC(LOINC) PLATELET COUNT 188 150-450 X10E9 /L LAB MPV(LOINC) MPV 9.1 7-12 fL LAB NEUT(LOINC) % NEUTROPHILS 76.1 % LAB LYMP(LOINC) % LYMPHOCYTES 11.3 % LAB MONO(LOINC) % MONOCYTES 10.5 % LAB EOS(LOINC) % EOSINOPHILS 1.6 % LAB BASO(LOINC) % BASOPHILS 0.5 % LAB ANEUT(LOINC) ABSOLUTE NEUTROPHIL 5.8 1.5-6.6 X10E9/L LAB ALYMP(LOINC) ABSOLUTE LYMPHOCYTE 0.9 Low 1.0-3.5 X10E9/L LAB AMONO(LOINC) ABSOLUTE MONOCYTE 0.8 0-0.9 X10E9/L LAB AEOS(LOINC) ABSOLUTE EOSINOPHIL 0.1 0.0-0.4 X10E9/L LAB ABASO(LOINC) ABSOLUTE BASOPHIL 0.0 0.0-0.2 X10E9/L Performed By: #### CBCA, CMP , 11287-9, 2639-3, 2157-6 #### [facility] ([id number]) [address] [place] [address], [place] [address] COMPREHENSIVE METABOLIC PANEL Collected: 2024 4:47 AM Status: COMPLETED Source: [facility] TYPE CODE TESTS RESULT OUT OF RANGE REFERENCE UNITS LAB NA(LOINC) SODIUM 140 134-146 mmol/L LAB K(LOINC) POTASSIUM 4.0 3.5-5.0 mmol/L LAB CL(LOINC) CHLORIDE 112 High 98-109 mmol/L LAB CO2(LOINC) CARBON DIOXIDE 20 Low 22-32 mmol/L LAB AGAP(LOINC) ANION GAP 8 5-15 mmol/L LAB BUN(LOINC) BLOOD UREA NITROGEN 10 5-23 mg/dL LAB CRET(LOINC) CREATININE 0.86 0.40-1.00 mg/dL Result Comment: METHOD TRACE ABLE TO IDMS STANDARD LAB GLU(LOINC) GLUCOSE 91 65-99 mg/dL LAB CA(LOINC) CALCIUM 8.0 Low 8.5-10.5 mg/dL LAB TP(LOINC) TOTAL PROTEIN 6.4 6.0-8.0 g/dL LAB ALB(LOINC) ALBUMIN 2.7 Low 3.2-5.3 g/dL LAB ALK(LOINC) ALKALINE PHOSPHATASE 60 39-130 U/L LAB AST(LOINC) AST 94 High 0-41 U/L LAB ALT1(LOINC) ALT 46 High 0-31 U/L LAB TBIL(LOINC) BILIRUBIN,TOTAL 0.5 0.3-1.2 mg/d L LAB EGFR(LOINC) eGFR (CKD-EPI) NON-RACE DEPENDENT 79 >59 ml/min/1 .73sq.m Result Comment: Reported eGFR is based on the CKD-EPI 2020 equation that does not use a race coefficient. Performed By: #### CBCA, CMP , 70161-8, 2639-3, 2157-6 #### [facility] ([id number]) [address] [place] [address] 81335 MAGNESIUM Collected: 08/29/2024 4:47 AM S tatus: COMPLETED Source: [facility] TYPE CODE TESTS RESULT OUT OF RANGE REFERENCE UNITS LAB MG(LOINC) MAGNESIUM 1.9 1.8-2.6 mg/dL Performed By: #### ELLIOTTA, CMP , 33372-2, 2639-3, 2156-6 #### [facility] ([id number]) [address] [place] [address] 26059 SERUM MYOGLOBIN Collected: 08/29/2024 4:47 AM Status: COMPLETED Source: [facility] TYPE CODE TESTS RESULT OUT OF RANGE REFERENCE UNITS LAB MYOG(LOINC) SERUM MYOGLOBIN 374.0 High 14.3-65.8 ng/mL Performed By: #### CBCA, CMP , 56467-5, 2639-3, 2157-6 #### [facility] ([id number]) [address] [place] [address] 26642 CPK Collected: 08/29/2024 4:47 AM S tatus: COMPLETED Source: [facility] TYPE CODE TESTS RESULT OUT OF RANGE REFERENCE UNITS LAB CPK(LOINC) CPK 3580 High 24-170 U/L Performed By: #### CBCA, CMP , 18710-2, 2639-3, 2157-6 #### [facility] ([id number]) [address] [place] [address] 44268 POTASSIUM Collected: 11:50 PM Status: COMPLETED Source: [facility] TYPE CODE TESTS RESULT OUT OF RANGE REFERENCE UNITS LAB K(LOINC) POTASSIUM 3.2 Low 3.5-5.0 mmol/L Performed By: #### 2823-3, 1 9123-9, 31276-5 #### [facility] ([id number]) [address] [place] [address] 80002 MAGNESIUM Collected: 08/28/2024 11:50 PM Status: COMPLETED Source: [facility] TYPE CODE TESTS RESULT OUT OF RANGE REFERENCE UNITS LAB MG(LOINC) MAGNESIUM 1.9 1.8-2.6 mg/dL Performed By: #### 2823-3, 1 9123-9, 45679-4 #### [facility] ([id number]) [address] [place] [address] 59313 3 HOUR TROP I, HIGH SENSITIVITY Collected: 08/18 11:50 PM Status: COMPLETED Source: [facility] TYPE CODE TESTS RESULT OUT OF RANGE REFERENCE UNITS LAB TNIHS3(LOINC) 3 HOUR TROP I, HIGH SENSITIVITY 42 High <16 ng/L Result Comment: Elevations of hs-Troponin may be due to causes other than myocardial ischemia. Recommend serial hs-Troponin testing be performed. For the initial evaluation and management of chest pain patients, refer to the algorithms linked below. Emergency Patient: [email or web address] Inpatient: [email or web address] Performed By: #### 2823-3, 1 9123-9, 06324-7 #### [facility] ([id number]) [address] [place] [address] 97427 SERUM MYOGLOBIN Collected: 08/28/2024 9:07 PM Status: COMPLETED Source: [facility] TYPE CODE TESTS RESULT OUT OF RANGE REFERENCE UNITS LAB MYOG(LOINC) SERUM MYOGLOBIN 1035.9 High 14.3-65.8 ng/mL Performed By: #### 2639-3, 2 157-6 #### [facility] ([id number]) [address] [place] [address] 48930 CPK Collected: 08/28/2024 9:07 PM S tatus: COMPLETED Source: [facility] TYPE CODE TESTS RESULT OUT OF RANGE REFERENCE UNITS LAB CPK(LOINC) CPK 4648 High 24-170 U/L Performed By: #### 2639-3, 2 157-6 #### [facility] ([id number]) [address] [place] [address]A CHEST Observed: 08/28/2024 12:08 PM Status: COMPLETED Source: [facility] CT CTA CHEST CLINICAL INFORMATION: Status post [...] for acute or suspicious pathology in the tuoff-be-hjrq. The trachea and bronchi are patent. No [...] Reji Saini MD on 08/28/2024 12:40 PM 1 HOUR TROP I, HIGH SENSITIVITY Collected: 08/18 11:47 AM Status: COMPLETED Source: [facility] TYPE CODE TESTS RESULT OUT OF RANGE REFERENCE UNITS LAB TNIHS1(LOINC) 1 HOUR TROP I, HIGH SENSITIVITY 34 High <16 ng/L Result Comment: Elevations of hs-Troponin may be due to causes other than myocardial ischemia. Recommend serial hs-Troponin testing be performed. For the initial evaluation and management of chest pain patients, refer to the algorithms linked below. Emergency Patient: [email or web address] Inpatient: [email or web address] Performed By: #### 60201-7 # ### [facility] ([id number]) [address] [place] [address], [place] [address] XR CHEST 1 VW Observed: 08/28/2024 10:46 AM Status: COMPLETED Source: [facility] XR CHEST 1 VW Portable chest: HISTORY: Cough and weakness. Single view of the chest was obtained. Cardiac and mediastinal contours are within normal limits. Lungs clear. There is no vascular congestion or effusion. IMPRESSION: Negative exam. Finalized by Gian Gilbert MD on 08/28/2024 10:58 AM CBC AND AUTO DIFF Collected: 08/28/2024 10:34 A M Status: COMPLETED Source: [facility] TYPE CODE TESTS RESULT OUT OF RANGE REFERENCE UNITS LAB WBC(LOINC) WBC COUNT 14.2 High 4.0-11.0 X10E9/L LAB RBC(LOINC) RBC COUNT 4.83 3.80-5.20 X10E12/L LAB HGB(LOINC) HEMOGLOBIN 13.5 11.7-15.5 g/dL LAB HCT(LOINC) HEMATOCRIT 40.3 35-47 % LAB MCV(LOINC) MCV 83 80-100 fL LAB MCH(LOINC) MCH 28.0 27-34 pg LAB MCHC(LOINC) MCHC 33.6 32-36 g/dL LAB RDW(LOINC) RDW 15.7 High 11.5-15.0 % LAB PLTC(LOINC) PLATELET COUNT 239 150-450 X10E9 /L LAB MPV(LOINC) MPV 9.0 7-12 fL LAB NEUT(LOINC) % NEUTROPHILS 85.2 % LAB LYMP(LOINC) % LYMPHOCYTES 4.6 % LAB MONO(LOINC) % MONOCYTES 9.9 % LAB EOS(LOINC) % EOSINOPHILS 0.1 % LAB BASO(LOINC) % BASOPHILS 0.2 % LAB ANEUT(LOINC) ABSOLUTE NEUTROPHIL 12.1 High 1.5-6.6 X10E9/L LAB ALYMP(LOINC) ABSOLUTE LYMPHOCYTE 0.6 Low 1.0-3.5 X10E9/L LAB AMONO(LOINC) ABSOLUTE MONOCYTE 1.4 High 0-0.9 X10E9/L LAB AEOS(LOINC) ABSOLUTE EOSINOPHIL 0.0 0.0-0.4 X10E9/L LAB ABASO(LOINC) ABSOLUTE BASOPHIL 0.0 0.0-0.2 X10E9/L Performed By: #### CBCA, CMP , 2157-6, 96972-0, 82327-9, 54999-3, PINR, 44913-4, 2639-3 #### [facility] ([id number]) [address] [place] [address], [place] [address] COMPREHENSIVE METABOLIC PANEL Collected : 08/28/2024 10:34 AM Status: COMPLETED Source: [facility] TYPE CODE TESTS RESULT OUT OF RANGE REFERENCE UNITS LAB NA(LOINC) SODIUM 141 134-146 mmol/L LAB K(LOINC) POTASSIUM 3.8 3.5-5.0 mmol/L LAB CL(LOINC) CHLORIDE 107 98-109 mmol/L LAB CO2(LOINC) CARBON DIOXIDE 24 22-32 mmol/L LAB AGAP(LOINC) ANION GAP 10 5-15 mmol/L LAB BUN(LOINC) BLOOD UREA NITROGEN 15 5-23 mg/dL LAB CRET(LOINC) CREATININE 1.27 High 0.40-1.00 mg/dL Result Comment: METHOD TRACE ABLE TO IDMS STANDARD LAB GLU(LOINC) GLUCOSE 137 High 65-99 mg/dL LAB CA(LOINC) CALCIUM 9.4 8.5-10.5 mg/dL LAB TP(LOINC) TOTAL PROTEIN 8.1 High 6.0-8.0 g/dL LAB ALB(LOINC) ALBUMIN 3.5 3.2-5.3 g/dL LAB ALK(LOINC) ALKALINE PHOSPHATASE 86 39-130 U/L LAB AST(LOINC) AST 62 High 0-41 U/L LAB ALT1(LOINC) ALT 32 High 0-31 U/L LAB TBIL(LOINC) BILIRUBIN,TOTAL 0.6 0.3-1.2 mg/d L LAB EGFR(LOINC) eGFR (CKD-EPI) NON-RACE DEPENDENT 50 Low >59 ml/min/1 .73sq.m Result Comment: Reported eGFR is based on the CKD-EPI 2020 equation that does not use a race coefficient. Performed By: #### CBCA, CMP , 2157-6, 69310-9, 30966-0, 42967-0, PINR, 85822-0, 2639-3 #### [facility] ([id number]) [address] [place] [address]11 CPK Collected: 08/28/2024 10:34 AM Status: COMPLETED Source: [facility] TYPE CODE TESTS RESULT OUT OF RANGE REFERENCE UNITS LAB CPK(LOINC) CPK 3034 High 24-170 U/L Performed By: #### CBCA, CMP , 2157-6, 76992-4, 90921-2, 86010-9, PINR, 49777-4, 2639-3 #### [facility] ([id number]) [address] [place] [address] 37888 MAGNESIUM Collected: 08/28/2024 10:34 AM Status: COMPLETED Source: [facility] TYPE CODE TESTS RESULT OUT OF RANGE REFERENCE UNITS LAB MG(LOINC) MAGNESIUM 2.0 1.8-2.6 mg/dL Performed By: #### CBCA, CMP , 2157-6, 83688-0, 77294-4, 97491-1, PINR, 99971-8, 2639-3 #### [facility] ([id number]) [address] [place] [address] 69124 TROPONIN I, HIGH SENSITIVITY Collected: 025 10:34 AM Status: COMPLETED Source: [facility] TYPE CODE TESTS RESULT OUT OF RANGE REFERENCE UNITS LAB TNIHS(LOINC) TROPONIN I, HIGH SENSITIVITY 29 High <16 ng/L Result Comment: Elevations of hs-Troponin may be due to causes other than myocardial ischemia. Recommend serial hs-Troponin testing be performed. For the initial evaluation and management of chest pain patients, refer to the algorithms linked below. Emergency Patient: [email or web address]: [email or web address] Performed By: #### CBCA, CMP , 2157-6, 78357-6, 92907-9, 93103-4, PINR, 72781-6, 2639-3 #### [facility] ([id number]) [address] [place] [address] 73343 D DIMER Collected: 5 10:34 AM Status: COMPLETED Source: [facility] TYPE CODE TESTS RESULT OUT OF RANGE REFERENCE UNITS LAB DDMR(LOINC) D DIMER 5157 High <255 ng/mL DDU Result Comment: Results >=255ng/mL DDU: Results may be indicative of the presence of VTE. The use of the Wells score and further diagnostic tests should be considered. Elevated D-Dimer levels can also be associated with DIC, neoplasm, , trauma and liver disease. Elevated levels of rheumatoid factor may lead to an overestimation of the D-Dimer level. Performed By: #### CBCA, CMP , 2157-6, 05576-1, 04565-8, 80462-1, PINR, 79832-8, 2639-3 #### [facility] ([id number]) [address] [place] [address] 31041 PROTIME AND INR Collected: 08/28/2024 10:34 AM Status: COMPLETED Source: [facility] TYPE CODE TESTS RESULT OUT OF RANGE REFERENCE UNITS LAB PROX(LOINC) PROTIME 15.0 High 9.8-13.2 sec Result Comment: NEW REFERENC E RANGE LAB INR(LOINC) INR 1.3 High 0.9-1.2 Performed By: #### CBCA, CMP , 2157-6, 74943-2, 45805-1, 44825-6, PINR, 47533-7, 2639-3 #### [facility] ([id number]) [address] [place] [address] 55158 APTT Collected: 08/28/2024 10:34 AM Status: COMPLETED Source: [facility] TYPE CODE TESTS RESULT OUT OF RANGE REFERENCE UNITS LAB PTT(LOINC) APTT 31 26-37 sec Result Comment: NEW REFERENC E RANGE Performed By: #### CBCA, CMP , 2157-6, 75932-5, 18288-8, 62636-9, PINR, 36519-7, 2639-3 #### [facility] ([id number]) [address] [place] [address] 16299 SERUM MYOGLOBIN Collected: 08/28/2024 10:34 AM Status: COMPLETED Source: [facility] TYPE CODE TESTS RESULT OUT OF RANGE REFERENCE UNITS LAB MYOG(LOINC) SERUM MYOGLOBIN 4039.8 High 14.3-65.8 ng/mL Performed By: #### CBCA, CMP , 2157-6, 73603-4, 02330-4, 73726-4, PINR, 93463-6, 2639-3 #### [facility] ([id number]) [address] [place] [address] 61616 SARS/FLU A+B/RSV BY NAAT/MOLECULAR Observed: 08/28/2024 10:32 AM Status: COMPLETED Source: [facility] FLU A PCR Negative (qualifier value) FLU [...] operators who are performing tests using either [employer] or [employer] systems and is limited to laboratories that [...] specimen repeat. Fact Sheet for Healthcare Providers: https://www.fda.gov/media/290271/download Fact Sheet for Patients: https://www.fda.gov/media/602413/download Performed By: #### COVFLR ## ## [facility] ([id number]) [address] [place], [place] [address], [place] [address] URINE CULTURE Observed: 08/22/2024 10:45 PM Status: F Source: [facility] ORGANISM: Proteus mirabilis (O:PROMIR) [place] Count >100,000 Aerobic ROSE Charge (NMIC56) SUSCEPTIBILITY ORGANISM: O:PROMIR ANTIBIOTIC INTERPRETATION ROSE Amikacin S <16 Amoxacillin/K Clavulanate S <8 Ampicillin S <8 Ampicillin/Sulbactam S <4 Aztreonam S <4 Cefazolin S <2 Cefepime S <2 Ceftazidime S <1 Ceftazidime/Avibactam S <4 Ceftolozane/Tazobactam S <2 Ceftriaxone S <1 Cefuroxime S <4 Ciprofloxacin S <0.25 Ertapenem S <0.5 Gentamicin S <2 Levofloxacin S <0.5 Meropenem S <1 Meropenem/Vaborbactam S <2 Piperacillin/Tazobactam S <8 Tobramycin S <2 Trimethoprim/Sulfamethoxazole S <0.5 S = SUSCEPTIBLE I = [...] RESISTANT TO ALL B-LACTAM DRUGS. PERFORMED BY: [place] [address] PATHOLOGIST BUTTON CUTTING MACHINE OPERATOR CLAIRE PATEL M.D. Performed By: #### CUU #### [address] PROGRESS NOTE-PHYSICIAN Observed: 2023 3:45 PM Status: F Source: [facility] Progress Note-Physician Patient: YAMILKA VASQUEZ Age: 53 years Sex: Female : 1970 Associated Diagnoses: None Author: Mynor Enriquez MD Postoperative Information Postoperative disposition: Postoperative disposition: To PACU. Optimetrix number: Optimetrix number [id number]. Anesthetic utilized: General. Regional: Interscalene Block. Health [...] when meets criteria ( To home ). Result Comment: Electronical ly Signed By: Mynor Enriquez MD\.br\Date and Time Signed: 02/10/24 16:19 EDT DISCHARGE INSTRUCTIONS Observed: 024 3:43 PM Status: F Source: [facility] Discharge Instructions YAMILKA VASQUEZ :1970 Visit Date:02/10/2024 Inpatient Discharge Instructions Your Care Team Admitting Physician - Eliazar Brooks DO Referring Physician - Eliazar Brooks DO Reason for Your Visit M75.42 Your Diagnosis Impingement of left shoulder This Is Your Medications List acetaminophen (Tylenol) acetaminophen-oxycodone (Percocet 5 mg-325 mg oral tablet) cyanocobalamin [...] scheduled appointment Call for any problems. Where: [address] [place] [id number] [employer] (1) Medications What How Much When Why Instructions Next Dose Changed acetaminophen (Tylenol) 1,000 Milligram By Mouth Every 6 hours as needed for as needed for pain Changed cyanocobalamin (Vitamin B12) 2,500 Microgram Sublingual Every day Changed naproxen (Naprosyn 500 mg Tab) 1 Tablets By Mouth 2 times a day as needed for Pain Unchanged acetaminophen-oxycodone (Percocet 5 mg-325 mg oral tablet) See instructions Impingement of left shoulder Take one to two oral every 4 hours as needed for shoulder surgical pain. Pickup at [facility] Unchanged ergocalciferol (Vitamin D) 1,200 International [...] bedtime) as needed for Sleep Pharmacy Information [facility]: [address] [place], [place] [phone] Test Results No qualifying data available. Allergies No Known Allergies Problems Ongoing - Any problem that you are currently receiving treatment for. Menopause Mini stroke MS - Multiple sclerosis Smoker Education Materials [place], [place] [facility] AFTER YOUR SHOULDER ARTHROSCOPY [...] your appointment. Eliazar Brooks, DO [facility] [address] [place] [address] Reviewed: 115 Common Emergency Awareness Tips IS IT A STROKE? Act FAST and Check for these signs: FACE Does the face look uneven? ARM Does one arm drift down? SPEECH Does their speech sound strange? TIME Call at any sign of stroke Heart Attack Signs Chest discomfort: Most heart attacks involve discomfort in the center of the chest and lasts more than a few minutes, or goes away and comes back. It can feel like uncomfortable pressure, squeezing, fullness or pain. Discomfort in upper body: Symptoms can include pain or discomfort in one or both arms, back, neck, jaw or stomach. Shortness of breath: With or without discomfort. Other signs: Breaking out in a cold sweat, nausea, or lightheaded. Remember, MINUTES DO MATTER. If you experience any of these heart attack warning signs, call to get immediate medical attention! Patient Survey You may receive a survey in the mail asking you about your stay with us. We want to hear from you, please share your experience with us by completing your survey. Thank you for choosing [facility] Award Nomination The JOHN (Diseases Attacking the Immune SYstem) Award is an international recognition program that honors and celebrates the skillful, compassionate care nurses provide every day. Anyone who experiences or observes amazing care being provided by a nurse is encouraged to submit a nomination. To nominate your nurse, use your smart phone to scan the QR code below. Patient Portal You may access all of your results and other medical record information on our secure patient portal. If you are not signed up for this yet, please contact [employer] at [phone] to get signed up today. Patient Name: YAMILKA VASQUEZ I have received this information and my questions have been answered. Patient/Marketing Lead Name: Patient/Marketing Lead Signature: Relationship to Patient: Witness Name/Signature: Date: Result Comment: Electronical ly Signed By: Aime ROSA, Brigida Martell.br\Date and Time Signed: 02/10/24 15:46 EDT PATIENT EDUCATION - TEXT Observed: 02/09 3:39 PM Status: C Source: [facility] Patient Education - Text [place], [place] [facility] AFTER YOUR SHOULDER ARTHROSCOPY [...] your appointment. Eliazar Brooks, DO [facility] [address] [place] [address] Reviewed: 06-03 OPERATIVE REPORT Observed: 02/10/2024 3:22 PM Status: F Source: [facility] Operative Report SURGERY DATE: 02/10/2024 JOCKEY'S AGENT: Marlyn Kate C.F.A. PREOPERATIVE DIAGNOSIS: Left shoulder [...] a lateral portal incision utilizing a 90-degree [place] wand as well as 5.0 bone cutter, [...] PATIENT CONDITION: Satisfactory Aguila Santamaria Dictated: 02/10/2024 [id number] Transcribed: 02/10/2024 Result Comment: Electronical ly Signed By: Eliazar Brooks DO\.br\Date and Time Signed: 02/11/24 07:18 EDT MAIN OR PACU I RECORD Observed: 02/10/20 2:46 PM Status: F Source: [facility] Main OR PACU I Record PACU Phase I Document Type FT Summary Primary Physician: Eliazar Brooks DO Finalized Date/Time: 02/10/24 16:23:54 Pt. Name: YAMILKA VASQUEZ/Sex: 1970 Female Med Rec #: [id number] Physician: Eliazar Brooks DO Financial #: [id number] Pt. Type: A Room/Bed: Admit/Disch: 02/10/24 11:39:41 [...] Signed By: Meera Rose RN 02/10/24 16:23 MAIN OR PACU II RECORD Observed: 024 2:46 PM Status: F Source: [facility] Main OR PACU II Record PACU Phase II Document Type FT Summary Primary Physician: Eliazar Brooks DO Finalized Date/Time: 02/10/24 18:07:34 Pt. Name: YAMILKA VASQUEZ/Sex: 1970 Female Med Rec #: [id number] Physician: Eliazar Brooks DO Financial #: [id number] Pt. Type: A Room/Bed: Admit/Disch: 02/10/24 11:39:41 [...] Signed By: Sherron Deleon RN 02/10/24 18:07 MAIN OR PREOPERATIVE RECORD Observed: 2:46 PM Status: C Source: [facility] Main OR Preoperative Record PreOp Document Type FT Summary Primary Physician: Eliazar Brooks DO Finalized Date/Time: 02/10/24 15:51:36 Pt. Name: YAMILKA VASQUEZ/Sex: 1970 Female Med Rec #: [id number] Physician: Eliazar Brooks DO Financial #: [id number] Pt. Type: A Room/Bed: Admit/Disch: 02/10/24 11:39:41 [...] Pak 02/10/24 14:59 Adams Pak 02/10/24 15:51 MAIN OR INTRAOPERATIVE RECORD Observed: 02/10/2024 2:46 PM Status: C Source: [facility] Main OR Intraoperative Recor d IntraOp Document Type FT Summary Primary Physician: Eliazar Brooks DO Finalized Date/Time: 02/11/24 14:09:06 Pt. Name: PEDROYAMILKA/Sex: 1970 Female Med Rec #: [id number] Physician: Eliazar Brooks DO Financial #: [id number] Pt. Type: A Room/Bed: Admit/Disch: 02/10/24 11:39:41 [...] 2 Entry 3 Case Attendee Cynthia BROWN, VALERY Patterson Eliazar Brooks DO, CST, Marlyn Lynn N. Role Performed MECHANICAL SHOVEL OPERATOR Surgeon - Primary Scrub - Primary Time [...] Attendee Adams Pak Laura C Role Performed Radiotelephone Operator - Primary Scrub - Primary Time [...] Yes Given Time Out Cynthia BROWN, VALERY, Patterson Time Out Complete 02/10/24 14:35:00 Participants N.Zbigniew DO, Michael T, Wilhelm CST, Marlyn Lynn, Sweene, Adams T, Awad, Naomi C Outcomes Met? Yes Last Modified By: [...] and tissue Entry 1 Skin Integrity Intact, [place], Warm, & Skin Abnormality No Dry Outcomes Met? Yes Last Modified By: Adams Pak 02/10/24 15:02:50 Post-Care Text: The patient is free from signs and symptoms of injury caused by extraneous objects Patient Positioning FT Pre-Care Text: Identifies physical alterations that require additional precautions for procedure-specific positioning, verifies presence of prosthetics or corrective devices, positions the patient, evaluates the patient for signs and symptoms of injury as a result of positioning Entry 1 Procedure SHOULDER ARTHROSCOPY W/ Body Position Beach Chair POSSIBLE REPAIR(Left) Feet Uncrossed? Yes Left Arm Position Held on Field Right Arm Position Extended on Padded Arm Left Leg Position Extended Board Right Leg Position Extended Positioning Device Safety Strap, Spider Positioner Leg Support, Spider Shoulder Positioner Press Points Checked Yes By Cynthia BROWN, MECHANICAL SHOVEL OPERATOR, Humble Kinsey CST, Macie C, Sweene, Terry T Outcomes Met? Yes Last Modified By: Adams Pak 02/10/24 15:03:16 Post-Care Text: The patient is free from signs and symptoms of injury related to positioning Patient Care Devices FT Pre-Care Text: Implements protective measures to prevent skin/ tissue injury due to thermal or mechanical sources Entry 1 Entry 2 Entry 3 Equipment Type ARTHREX GENERATOR UNIT ARTHREX DUALWAVE CAUTERY UNIT IRRIGATION PUMP Equipment Number VALLEYLAB Equipment Setting 60/60 Outcomes Met? Yes Yes Yes Last Modified By: Adams Pak Terry T Sweene, Terry T 02/10/24 15:04:40 02/10/24 15:04:40 02/10/24 15:04:40 Entry 4 Entry 5 Entry 6 Equipment Type INTELLICART SUCTION UNIT MISTRAL FORCED AIR MONITOR CHARGE SURGERY WARMING SYSTEM UNIT Equipment Number CART 1 M5 Equipment Setting 600 MM HG 43 C Outcomes Met? Yes Yes Yes Last Modified By: Adams Pak Terry T Sweene, Terry T 02/10/24 15:04:40 02/10/24 15:04:40 02/10/24 15:04:40 Entry 7 Entry 8 Entry 9 Equipment Type ORTHO ARTHREX ABRADER SHOULDER TABLE SONOSITE ULTRASOUND UNIT SYSTEM Equipment Number Equipment Setting Outcomes Met? Yes Yes Yes Last Modified By: Adams Pak Terry T Sweene, Terry T 02/10/24 15:04:40 02/10/24 15:04:40 02/10/24 15:04:40 Entry 10 Equipment Type VIDEO SYSTEM Equipment Number Equipment Setting Outcomes Met? Yes Last Modified By: Adams Pak 02/10/24 15:04:40 Post-Care Text: The patient is free from signs and symptoms of injury caused by extraneous objects Transport To OR FT Pre-Care Text: Transports according to individual needs. Evaluates for signs and symptoms of skin and tissue injury as a result of transfer or transport Entry 1 Via Cart By Adams Pak Safety Precautions Side Rails Up Outcomes Met? Yes Last Modified By: Adams Pak 02/10/24 15:04:51 Post-Care Text: The patient is free from signs and symptoms of injury related to transfer/transport Cautery FT Pre-Care Text: Implements protective measures to prevent injury due to electrical sources, and evaluates for signs and symptoms of electrical injury Entry 1 ESU Identification ESU Type CAUTERY UNIT Equipment Number VALLEYLAB ESU Settings Cut 60 Coag 60 ESU Grounding Pad Site Right Upper Abdomen Hair Removal Pad No Site Pre Pad Site Clear and Intact Post Pad Site Clear and Intact Condition Condition Grounding Pad Marlyn Kate CST Placed By Outcomes Met? Yes Last Modified By: Adams Pak 02/10/24 15:05:43 Post-Care Text: The patient if free from signs and symptoms of electrical injury Counts Verification FT Pre-Care Text: Performs required counts Entry 1 Entry 2 Procedure(s) SHOULDER ARTHROSCOPY W/ SHOULDER ARTHROSCOPY W/ POSSIBLE REPAIR(Left) POSSIBLE REPAIR(Left) Type Initial Final Items Sponges, Sharps Sponges, Sharps Status Correct Correct Time 02/10/24 14:40:00 02/10/24 15:22:00 By Adams Pak, Adams Pak Miller, Laura C Miller, Laura C Outcomes Met? Yes Yes Last Modified By: Adams Pak Terry T 02/10/24 15:08:29 02/10/24 15:26:25 Post-Care Text: The patient is free from signs and symptoms of injury caused by extraneous objects Skin Prep FT Pre-Care Text: Performs skin preparations Entry 1 Procedure SHOULDER ARTHROSCOPY W/ Prep Agents Chloraprep/Dry Prior to POSSIBLE REPAIR(Left) Draping Start Dry Time 02/10/24 14:41:00 Stop Dry Time 02/10/24 14:44:00 Hair Removal Methods Not Indicated By Adams Pak Outcomes Met? Yes Last Modified By: Adams Pak 02/10/24 15:09:27 Post-Care Text: The patient is free from signs and symptoms of infection Departure From OR FT Pre-Care Text: Transports according to individual needs. Evaluates for signs and symptoms of skin and tissue injury as a result of transfer or transport. Entry 1 Via Cart Safety Precautions Side Rails Up PostOp Destination PACU Transported By Adams Pak Patient Status Stable Skin. Condition Intact, [place], Warm, & Description DRESSING LEFT SHOULDER Dry DRY AND INTACT. INCISIONS WELL APPROXIMATED. Airway Maintenance Oxygen in Use? Yes Airway Device Simple Mask Flow Rate 8 L Outcomes Met? Yes Last Modified By: Adams Pak 02/10/24 15:50:45 Post-Care Text: The patient is free from signs and symptoms of injury related to transfer/transport General Comments: VERBAL AND WRITTEN HANDOFF REPORT GIVEN TO PACU NURSE. Aurora PAK RN. Dressing/Packing FT Pre-Care Text: Administers care to wound sites Entry 1 Type Dressing Items DRESSING ADAPTIC 3 X 8 Site and Details DRESSING LEFT SHOULDER Outcomes Met? Yes - ADAPTIC, 4X4'S, ABD'S, FOAM TAPE. Last Modified By: Adams Pak 02/10/24 15:10:25 Post-Care Text: The patient is free from signs and symptoms of infection Medication Administration FT Pre-Care Text: Verifies allergies, administers prescribed medications and solutions, administers prescribed antibiotic therapy and immunizing agents as ordered, evaluates response to medications Administers prescribed medications and solutions Entry 1 Route of Admin Field Expiration Date Yes Verified Ordered By Eliazar Brooks DO Transcribed/To Adams Pak Field By Administered By Eliazar Brooks DO Outcomes Met? Yes Last Modified By: Adams Pak 02/10/24 15:10:43 Post-Care Text: The patient received appropriate medication(s) safely administered during the perioperative period For [place] please see scanned medication reconcilliation form for medications used at the field during the procedure. Implant Log FT Pre-Care Text: Records devices implanted during the operative or invasive procedure Entry 1 Procedure SHOULDER ARTHROSCOPY W/ POSSIBLE REPAIR(Left) Implant Identification FT Description ANCHOR 4.75 SWIVELLOCK Lot Number [id number] [[id number]] Data Quality Consultant Arthrex Catalog ?# [id number] Size 4.75 X 19.1 MM Expiration Date 06/19/27 Unique Device [id number] Human Readable {[id number] Identifier (NASIM) Barcode [id number] Machine Readable [id number] Barcode [id number] Usage Data FT Implant Site Shoulder L Quantity 1 Implanted By Brooks DO, Eliazar T Biological Implants MR Classification MR Safe Outcomes Met? Yes Last Modified By: Adams Pak 02/10/24 15:13:24 Post-Care Text: The patient is free from signs and symptoms of injury caused by extraneous objects Temperature Control Entry 1 Temperature Control BLANKET MISTRAL AIR Quantity 1 Aid PLUS LOWER BODY Fluid/[place] Unit Mistral warming system Setting 43 C Body Site Upper anterior torso Last Modified By: Adams Pak 02/10/24 15:11:58 General Comments: WARMING BLANKET APPLIED, BUT NOT USED PER PATIENT REQUEST. Aurora PAK RN. Sign Out FT Entry 1 Before Patient Leaves OR Nurse verbally Yes Nurse verbally Yes confirms with the confirms with the team the name of team that the procedure(s) instrument, sponge, recorded and needle counts are correct (or N/A) Nurse verbally n/a Nurse verbally Yes confirms with the confirms with the team how the team whether there specimen is labeled are any equipment (including patient problems to be name), if applicable addressed Sign Out Complete 02/10/24 15:16:00 Last Modified By: Adams Pak 02/10/24 15:26:33 Case Comments <None> Finalized By: Melinda Hills CST Document Signatures Signed By: Adams Pak 02/10/24 15:50 Adams Pak 02/10/24 15:50 Melinda Hills CST 02/11/24 14:09 PROCEDURAL Observed: 02/10/2024 2:05 PM Status: F Source: [facility] Procedural Patient: YAMILKA VASQUEZ Age: 53 years [...] Using maximal sterile barrier technique per current [facility] guidelines including hand hygeine, Guidance (Ultrasound [...] Queen Cynthia CRNA under Dr Enriquez's supervision.. PROGRESS NOTE-PHYSICIAN Observed: 2023 1:02 PM Status: F Source: [facility] Progress Note-Physician Patient: YAMILKA VASQUEZ Age: 53 years Sex: Female : 1970 Associated Diagnoses: None Author: Mina BENITEZ, Mynor Markham Preoperative Information Anesthesia Preop Info: Time patient [...] hours as needed for shoulder surgical pain., [facility], 167.7, cm, 02/05/24 11:09:00 EDT, [...] 1,000 mL, IV, 150 mL/hr PRN: (12) acetaminophen-oxyCODONE 325 mg-5 mg Tab [F] 1 tab(s), Oral, q6hr acetaminophen-oxyCODONE 325 mg-5 mg Tab [F] 2 tab(s), Oral, q6hr acetaminophen-oxyCODONE 325 mg-5 mg Tab [F] 1 tab(s), Oral, q6hr acetaminophen-oxyCODONE 325 mg-5 mg Tab [F] 2 tab(s), Oral, q6hr HYDROmorphone 1 mg/mL SOLN [F] 1 mg 1 mL, IV Push, q2hr HYDROmorphone 1 mg/mL SOLN [F] 1 mg 1 mL, IV Push, q2hr morphine 2 mg/mL preservative-free SOLN [F] 2 mg 1 mL, IV Push, q4hr morphine 2 mg/mL preservative-free SOLN [F] 2 mg 1 mL, IV Push, q4hr morphine 4 mg/mL preservative-free [F] 4 mg 1 mL, IV Push, q4hr morphine 4 mg/mL preservative-free [F] 4 mg 1 mL, IV Push, q4hr ondansetron 2 mg/mL Inj [F] 4 mg 2 mL, IV Push, q4hr ondansetron 2 mg/mL Inj [F] 4 mg 2 mL, IV Push, q4hr Problem list: All Problems Menopause / SNOMED CT 1460430268 / Confirmed Mini stroke / SNOMED CT 630095880 / Confirmed patient states she had a moment where she couldn't get words out and did not go to hospital but realized after that is what happened -- august 2020 MS - Multiple sclerosis / SNOMED CT 1112193702 / Confirmed Smoker / IMO [id number] / Confirmed Added secondary to documentation in Social History. Canceled: denies / SNOMED CT 576599851, Active Problems (4) Menopause Mini stroke MS - Multiple sclerosis Smoker , patient denies CVA Histories Past Medical History: Active MS - Multiple sclerosis (2708222819) Menopause (9965328009) Family History: No family history items have been selected or recorded. Procedure history: Carpal tunnel (477921291). Ectopic (13383703). Social History Social & Psychosocial Habits Alcohol 02/05/2024 Risk Assessment: Denies Alcohol Use Substance Abuse 02/05/2024 Risk Assessment: Denies Substance Abuse 02/05/2024 Use: Current Type: Marijuana Frequency: Daily Comment: medical card - 02/05/2024 09:54 - Tiffanie ROSA, [place] Tobacco 02/05/2024 Risk Assessment: Denies Tobacco Use . Physical Examination Vital Signs 02/10/2024 12:04 EDT Heart Rate Monitored 86 bpm Systolic Blood Pressure 124 mmHg Diastolic Blood Pressure 87 mmHg Blood Pressure Location Left arm Mean Arterial Pressure, Monitered 100 mmHg 02/10/2024 12:04 EDT Apical Heart Rate 94 bpm 02/10/2024 12:03 EDT Heart Rate Monitored 79 bpm Respiratory Rate 18 br/min SpO2 97 % 02/10/2024 12:03 EDT Temperature Axillary 36.6 DegC 02/10/2024 12:03 EDT Systolic Blood Pressure 119 mmHg Diastolic Blood Pressure 73 mmHg Blood Pressure Location Right arm Mean Arterial Pressure, Monitered 88 mmHg Vital Signs (last 24 hrs) Last Charted Temp Axillary 36.6 DegC (FEB 09 12:03) Heart Rate Monitored 86 bpm (FEB 09 12:04) SBP 124 mmHg (FEB 09 12:04) DBP 87 mmHg (FEB 09 12:04) Airway: Mallampati classification: II (soft palate, fauces, uvula visible). Respiratory: Lungs are clear to auscultation, Respirations are non-labored, adequate air exchange. Cardiovascular: Regular rhythm, No murmur, no JVD or edema. Review / Management Results review: No qualifying data available . Plan [place] [employer] Anesthesiologists (ASA) physical status classification: Class III. Anesthetic Preoperative Plan: Anesthesia General, and LMA. Regional Interscalene block. Result Comment: Electronical ly Signed By: Mina BENITEZ, Mynor Markham\.br\Date and Time Signed: 02/10/24 13:21 EDT OUTPATIENT SURGERY DISCHARGE INSTRUCTION Observed: 02/06/2024 6:01 PM Status: F Source: [facility] Outpatient Surgery Discharge Instruction [place] [id number] Patient Discharge Instructions PERSON INFORMATION Name: YAMILKA [...] F, have received the attached patient education materials/instructions and have verbalized understanding: May we do a follow up call? Yes No I was present when discharge instructions were given Patient Signature Date Clinican/Nurse Signature Date Follow up: With: Address: When: Eliazar Brooks [address] [place], [place] [id number] [facility] (1) Comments: Keep scheduled appointment Type Location Start [facility] 02/10/2024 2:30 PM 02/10/2024 3:30 PM Confirmed Pharmacy Information: You may receive a survey from [employer] asking you to rate your care experience. Your feedback is important and will help us understand what we do well and how we can improve the quality of care we provide to you, your loved ones and our community. It?s an honor to serve you. Thank you for choosing [facility] [place] HERE ARE THE MEDICATION CHANGES THAT OCCURRED [...] 1 Tablets By Mouth every day. conjugated estrogens-medroxyPROGESTERone (Prempro) Unknown By Mouth every day. cyclobenzaprine (cyclobenzaprine 10 mg Tab) 2 Tablets By Mouth 2 times a day as needed for spasm. dimethyl fumarate (Tecfidera) 240 Milligram By Mouth 2 times a day. PATIENT EDUCATION INFORMATION Instructions: [place], [place] [facility] AFTER YOUR SHOULDER ARTHROSCOPY [...] or questions arise before your appointment. Eliazar Brooks DO [facility] [address] [place], [place] [address] Reviewed: 06-03 Medication Leaflets: INPATIENT PATIENT SUMMARY Observed: 01/18 6:01 PM Status: F Source: [facility] Inpatient Patient Summary [facility] [place] [address] [place], [place] [id number] [facility] Clinical Discharge Instructions PERSON INFORMATION Name: YAMILKA VASQUEZ [facility]#:[id number] PHYSICIANS Admitting Physician: Eliazar Brooks DO Attending Physician: Eliazar Brooks DO PCP: ROCK CESPEDES August Discharge Diagnosis: Impingement of left shoulder Comment: PATIENT EDUCATION INFORMATION Instructions: Zbigniew - After Your Shoulder Arthroscopy (Revised 06/17/14) (CUSTOM) Medication Leaflets: Follow up: With: Address: When: Eliazar Brooks [address] [place], [place] [id number] Business (1) Comments: Keep scheduled appointment Type Location Start [facility] Surgery [facility] 02/10/2024 2:30 PM [...] 1 Tablets By Mouth every day. conjugated estrogens-medroxyPROGESTERone (Prempro) Unknown By Mouth every day. cyclobenzaprine (cyclobenzaprine 10 mg Tab) 2 Tablets By Mouth 2 times a day as needed for spasm. dimethyl fumarate (Tecfidera) 240 Milligram By Mouth 2 times a day. Comment: XR CHEST 2 VIEWS Observed: 02/05/2024 10:14 AM Status: F Source: [facility] Exam Date/Time: 02/05/2024 10:22 EDT Reason for [...] JANETH Technologist: SABRA Technical Comments Radiation Dose: gladis Tobin in mGy = . DAP = . CBC W/ AUTO DIFF Collected: 02/05/2024 10:02 AM Stat us: F Source: [facility] TYPE CODE TESTS RESULT OUT OF RANGE REFERENCE UNITS LAB 22394-4(LOINC) LEUKOCYTES^^JONY ECTED FOR NUCLEATED ERYTHROCYTES:NCN C:PT:BLD:QN:AUTO MATED COUNT 7.1 Normal 4.0-11.0 E9/L LAB 789-8(LOINC) ERYTHROCYTES:NCN C:PT:BLD:QN:AUTO MATED COUNT 4.5 Normal 4.3-5.9 E12/L LAB 718-7(LOINC) HEMOGLOBIN:MCNC: PT:BLD:QN: 12.6 Normal 12.0-16.0 gm/dL LAB 4544-3(LOINC) HEMATOCRIT:VFR:P T:BLD:QN:AUTOMAT ED COUNT 37.9 Normal 34.0-46.0 % LAB 788-0(LOINC) ERYTHROCYTE DISTRIBUTION WIDTH:RATIO:PT:R BC:QN:AUTOMATED COUNT 17.5 High 10.9-14.2 % LAB 785-6(LOINC) ERYTHROCYTE MEAN CORPUSCULAR HEMOGLOBIN:ENTMA SS:PT:RBC:QN:AUT OMATED COUNT 27.8 Normal 27.0-34.0 pg LAB 786-4([facility]) ERYTHROCYTE MEAN CORPUSCULAR HEMOGLOBIN CONCENTRATION:MC NC:PT:RBC:QN:AUT OMATED COUNT 33.2 Normal 31.4-36.0 gm/dL LAB 787-2([facility]) ERYTHROCYTE MEAN CORPUSCULAR VOLUME:ENTVOL:PT :RBC:QN:AUTOMATE D COUNT 83.9 Normal 80.0-100.0 fL LAB 82694-7([facility]) PLATELET MEAN VOLUME:ENTVOL:PT :BLD:QN:AUTOMATE D COUNT 10.4 Normal 6.4-10.8 fL LAB 80085258([facility]) Platelet 195.0 Normal 150.0-500.0 E9/ L LAB 72878-4([facility]) NEUTROPHILS/100 LEUKOCYTES:NFR:P T:BLD:QN: 76.4 High 36.0-75.0 % LAB 731-0([facility]) LYMPHOCYTES:NCNC :PT:BLD:QN:AUTOM ATED COUNT 11.1 Low 14.0-50.0 % LAB 742-7([facility]) MONOCYTES:NCNC:P T:BLD:QN:AUTOMAT ED COUNT 0.8 Normal 0.2-1.0 E9/L LAB 713-8([facility]) EOSINOPHILS/100 LEUKOCYTES:NFR:P T:BLD:QN:AUTOMAT ED COUNT 1.2 Normal 0.0-8.0 % LAB 704-7(INC) BASOPHILS:NCNC:P T:BLD:QN:AUTOMAT ED COUNT 0.6 Normal 0.0-2.0 % LAB 751-8([facility]) NEUTROPHILS:NCNC :PT:BLD:QN:AUTOM ATED COUNT 5.4 Normal 2.0-7.5 E9/L LAB 46693-9(INC) LYMPHOCYTES:NCNC :PT:BLD:QN: 0.8 Low 1.0-4.0 E9/L LAB 05265-4(INC) EOSINOPHILS:NCNC :PT:BLD:QN: 0.1 Normal 0.0-0.5 E9/L LAB 82946-7([facility]) BASOPHILS/LEUKOC YTES:NFR.DF:PT:B LD:QN:AUTOMATED COUNT 0.0 Normal 0.0-0.2 E9/L Performed By: #### [id number] # ### [facility] [address] [place] [address] BMP Collected: 4 10:02 AM Status: F Source: [facility] TYPE CODE TESTS RESULT OUT OF RANGE REFERENCE UNITS LAB 2345-7([facility]) GLUCOSE:MCNC :PT:SER/PLAS :QN: 93 Normal 55-199 mg/dL LAB 3094-0([facility]) UREA NITROGEN:MCN C:PT:SER/LOURDES S:QN: 11 Normal 5-21 mg/dL LAB 2160-0([facility]) CREATININE:M CNC:PT:SER/P LAS:QN: 0.9 Normal 0.5-1.3 mg/dL LAB 3097-3([facility]) UREA NITROGEN/CRE ATININE:MRTO :PT:SER/PLAS :QN: 12 Normal 10-20 No Units LAB 72294-4([facility]) CALCIUM:MCNC :PT:SER/PLAS :QN: 9.4 Normal 8.9-11.1 mg/dL LAB 2951-2([facility]) SODIUM:SCNC: PT:SER/PLAS: QN: 142 Normal 135-145 mmol/L LAB 2823-3([facility]) POTASSIUM:SC NC:PT:SER/PL :QN: 4.1 Normal 3.5-5.3 mmol/L LAB 2075-0([facility]) CHLORIDE:SCN C:PT:SER/LOURDES S:QN: 104 Normal 101-111 mmol/L LAB 2028-9([facility]) CARBON DIOXIDE:SCNC :PT:SER/PLAS :QN: 31 Normal 21-31 mmol/L LAB 89440-4([facility]) ANION GAP:SCNC:PT: SER/PLAS:QN: 11 Normal 6-16 mEq/L Performed By: #### [id number] # ### [facility] [address] [place] [address] EGFR Collected: 4 10:02 AM Status: F Source: [facility] Order Comment: Order added b y Discern Expert. TYPE CODE TESTS RESULT OUT OF RANGE REFERENCE UNITS LAB 67648227(LOINC) eGFR 75 Normal >=59 mL/min/1 .7 3 m2 Performed By: #### [id number] #### [facility] [address] [place] [address] CNPN Observed: 01/14/2024 12:00 AM Status: COMPLETED Source: [facility] Telephone (NEMSMN) YAMILKA VASQUEZ ([id number]) 1970 F Date Time Provider Department 01/14/24 JESSICA CLARKE During your visit today, we recorded the following information about you: Miri Soni 01/14/2024 2:12 PM Signed [employer] Call Name of caller : Yamilka Vasquez Relationship to patient: Self Return call phone number : [phone] Reason for call : Other : Brief description of concern :Please fax infusion orders to [phone] [facility]. Michelle Haines 01/17/2024 12:21 PM Signed Called patient back to let her know that Jessica's preference is for the patient to remain at [facility] if she is to order the medication. Patient said she would establish care with local neurologist. Allergies As of Date: 01/14/2024 (No Known Allergies) Date Reviewed: 07/12/2023 Reviewed by: Paris Toledo DO - Fully Assessed Reason for Visit: Orders [281] Prescriptions as of 01/17/2024 - albuterol HFA (PROVENTIL HFA, VENTOLIN HFA) [...] once daily. Problem List As Of Date 01/14/2024 Noted Resolved Adjustment disorder with mixed anxiety and depr*10/02/2012 Multiple sclerosis [G35] 10/02/2012 Research exam [Z00.6] 11/27/2012 Encounter Status:Closed by MICHELLE HAINES on 01/17/24 RUBINAN Observed: 12/19/2023 12:00 AM Status: COMPLETED Source: [facility] Telephone (MARK) YAMILKA VASQUEZ ([id number]) 1970 F Date Time Provider Department 12/19/23 NURSE [facility] JASON FLORES During your visit today, we recorded [...] Research exam [Z00.6] 11/27/2012 Encounter Status:Closed by SHE HEALY on 12/19/23 ALLERGIES DATE TYPE / CODE NAME / CODE REACTION SEVERITY SOURCE 09/05/2021 Drug Allergy/217598978(SNO MED CT) No Known Allergies/[id number] 8(RXNORM) [facility] Class/385120869(SNOME D CT) NO KNOWN ALLERGIES [facility] /364311393(SNOMED CT) No Known Allergies [facility] /739712796(SNOMED CT) penicillins [facility] Miscellaneous Allergy/106662424(SNO MED CT) Vicodin [facility] ENCOUNTERS ADMIT/DISCHARGE ACCOUNT NUMBER ADMITTING ENCOUNTER CLASS LOCATION SOURCE 11/24/2024/11/25/19 [id number] Ambulatory EU BellestellaBuil ding:KAITLIN Thomasm : CD:[id number] 5 [facility] 11/19/2024 [id number] [facility] 11/13/2024/11/14/19 [id number] Ambulatory Building:[facility] 11/13/2024/11/14/19 [id number] [facility]/13/2024/11/14/19 25 [id number] [facility]/13/2024/11/14/19 [id number] Ambulatory Building:[facility] 11/12/2024/11/13/19 25 [id number] Ambulatory Building:[facility] 11/12/2024/11/13/19 25 [id number] Ambulatory Building:[facility] 11/10/2024/11/11/19 25 [id number] Ambulatory Buildin 02 [facility] 10/17/2024/10/18/19 [id number] Alonzo Holguin [facility] ng:[facility] 10/09/2024/10/10/19 [id number] Ambulatory EU [place]:[facility] : Exam 1 [facility] 10/06/2024 [id number] Ambulatory EU Bellevue[place] ding:EU [place] [facility] 09/19/2024 [id number] Ambulatory Building:Un k [facility] 09/19/2024 [id number] Ambulatory Building:Un [facility] 09/19/2024/09/20/19 [id number] SHANICE GIMENEZ [facility] 09/18/2024/09/30/19 [id number] ANDREW JUNG Inpatient Encounter Building:PTH _G9ACUTERoom : Y092Xtt: 01 [facility] 09/16/2024/09/17/19 [id number] Ambulatory Building:[facility] _[facility] 08/28/2024/09/02/19 25 [id number] [facility] 08/28/2024/09/02/19 25 [id number] Emergency Building:PFM _XR [facility] 08/28/2024/09/02/19 [id number] KENROY PÉREZ Inpatient Encounter Building:PFM _ACUTERoom: 217Bed: 01 [facility] 08/22/2024/08/23/19 [id number] Tripp [facility]uber [facility] 08/18/2024/08/19/19 [id number] Ambulatory Building:[facility] 07/07/2024/07/07/19 25 [id number] Ambulatory Building:[facility] 06/17/2024/06/17/19 25 [id number] Ambulatory Building:[facility] 05/18/2024/05/18/20 24 [id number] Ambulatory Building:[facility] 04/27/2024/04/27/20 24 [id number] Ambulatory Building:NOM S ORTHO [facility] 03/25/2024/03/25/20 24 [id number] Ambulatory Building:NOM SCIPT [facility] 03/13/2024/03/13/20 24 [id number] Ambulatory Building:NOM SCIPT [facility] 03/11/2024/03/11/20 24 [id number] [facility] 03/06/2024/03/06/20 24 [id number] Ambulatory Building:[facility] SCIPT [facility] 03/05/2024/03/05/20 24 [id number] Ambulatory Building:[facility] 03/03/2024/03/03/20 24 [id number] Ambulatory Building:[facility] SCIPT [facility] 02/28/2024/02/28/20 24 [id number] Ambulatory Building:NOM SCIPT [facility] 02/25/2024/02/25/20 24 [id number] Ambulatory Building:NOM S ORTHO [facility] 02/25/2024/02/25/20 24 [id number] Ambulatory Building:NOM S ORTHO [facility] 02/10/2024/09/23 24 [id number] Eliazar Brooks Ambulatory FTBuilding :ASRoom: UN24Ntx: 01 [facility] 02/05/2024/02/05/20 [id number] Eliazar Brooks Ambulatory FTMCBuilding :FT [facility] 02/05/[id number] Eliazar Brooks Ambulatory FTMCBuilding :[facility] 02/03/2024/02/03/20 24 [id number] Ambulatory Building:[facility] 01/30/2024/01/30/20 24 [id number] Ambulatory Building:NOM S ORTHO [facility] 01/23/2024/01/23/20 24 [id number] Ambulatory Building:NOM S NEURO [facility] 01/06/2024/01/06/20 24 [id number] Ambulatory Building:[facility] 12/24/2023/12/24/19 24 [id number] Ambulatory Building:NOM S ORTHO [facility] 12/02/2023/12/02/19 24 [id number] Ambulatory Building:[facility] EPIC PAYERS ENCOUNTER GUARANTOR PAYER SUBSCRIBER SOURCE 11/24/2024 YAMILKA PAPPAS: [address]Tel: ~([phone] (HP) Primary Insurance:MEDICAREPoli cy Number: [id number] Date:2023-06-20 YAMILKA MUNROE [facility] 11/19/2024 YAMILKA BAIB: [place], [place] [address]Sbr: (HP) Primary Insurance:[facility] MEDICARE ADVANTAGE PPOPolicy Number: [id number] Date:2024-06-20 YAMILKA BAIB: [id number], [place] [address] [facility] Ambulatory [facility] 11/13/2024 YAMILKA BAIB: [place], [place] [address]Myk: (HP) Primary Insurance:[facility] MEDICARE ADVANTAGE PPOPolicy Number: [id number] Date:2024-06-20 YAMILKA VASQUEZDOB: [id number], [place] [address] [facility] 11/13/2024 YAMILKA VASQUEZDOB: [place], [place] [address]Huj: (HP) Primary Insurance:[facility] MEDICARE ADVANTAGE PPOPolicy Number: [id number] Date:2024-06-20 YAMILKA VASQUEZDOB: [id number], [place] [address] [facility] 11/13/2024 YAMILKA VASQUEZDOB: [place], [place] [address]Vtl: (HP) Primary Insurance:[facility] MEDICARE ADVANTAGE PPOPolicy Number: [id number] Date:2024-06-20 YAMILKA VASQUEZDOB: [id number], [place] [address] [facility] 11/12/2024 YAMILKA VASQUEZDOB: [address], [place] [address]Edd: (HP) Primary Insurance:[facility] MEDICARE ADVANTAGE PPOPolicy Number: [id number] Date:2024-06-20 YAMILKA VASQUEZDOB: [id number], [place] [address] [facility] 11/12/2024 YAMILKA VASQUEZDOB: [address], [place] [address]Tgh: (HP) Primary Insurance:[facility] MEDICARE ADVANTAGE PPOPolicy Number: [id number] Date:2024-06-20 YAMILKA VASQUEZDOB: [id number], [place] [address] [facility] 11/10/2024 YAMILKA LONZDOB: [address], [place] [address]Pqg: (HP) Primary Insurance:[facility] MEDICARE ADVANTAGE PPOPolicy Number: [id number] Date:2024-06-20 YAMILKA VASQUEZDOB: [id number], [place] [address] [facility] 10/17/2024 Yamilka Abbasi [address], [place] [address]Wkw: (HP) Primary Insurance:Self PayPolicy Number: Effective Date:2024-10-17 [facility]24 YAMILKA VASQUEZDOB: [address]Tel: ~(07 [phone] (HP) Primary Insurance:MEDICAREPoli cy Number: [id number] Date:2023-06-20 [facility] 10/06/2024 YAMILKA VASQUEZDOB: [address]Tel: (HP) Primary Insurance:MEDICAREPoli cy Number: [id number] Date:2023-06-20 YAMILKA MUNROE [facility] 09/19/2024 YAMILKA LONZDOB: [address], [place] [address]Jce: (HP) Primary Insurance:[facility] MEDICARE ADVANTAGE PPOPolicy Number: [id number] Date:2024-06-20 YAMILKA VASQUEZDOB: [id number], [place] [address] [facility] 09/19/2024 YAMILKA PEDRODOB: [address], [place] [address]Mgw: (HP) Primary Insurance:[facility] MEDICARE ADVANTAGE PPOPolicy Number: [id number] Date:2024-06-20 YAMILKA BAIB: [id number], [place] [address] [facility] 09/19/2024 YAMILKA BAIB: [address] [place], [place] [address]Asl: ~(42 [phone] (HP) Primary Insurance:[employer] MEDICARE COMPLETEPolicy Number: [id number] Date:2024-06-20 YAMILKA BAIB: [id number] [place] [address] [facility] 09/18/2024 YAMILKA VASQUEZDOB: [address], [place] [address]Szt: (HP) Primary Insurance:[facility] MEDICARE ADVANTAGE PPOPolicy Number: [id number] Date:2024-06-20 YAMILKA BAIB: [id number], [place] [address] [facility] 09/16/2024 YAMILKA VASQUEZDOB: [address], [place] [address]Pwd: (HP) Primary Insurance:[facility] MEDICARE ADVANTAGE PPOPolicy Number: [id number] Date:2024-06-20 YAMILKA VASQUEZDOB: [id number], [place] [address] [facility] 08/28/2024 YAMILKA VASQUEZDOB: [address], [place] [address]Erf: (HP) Primary Insurance:[facility] MEDICARE ADVANTAGE PPOPolicy Number: [id number] Date:2024-06-20 YAMILKA BAIB: [id number], [place] [address] [facility] 08/28/2024 YAMILKA VASQUEZDOB: [address], [place] [address]Iyi: (HP) Primary Insurance:[facility] MEDICARE ADVANTAGE PPOPolicy Number: [id number] Date:2024-06-20 YAMILKA VASQUEZDOB: [id number], [place] [address] [facility] 08/28/2024 YAMILKA VASQUEZDOB: [address], [place] [address]Zrr: (HP) Primary Insurance:[employer] MEDICARE ADVANTAGE PPOPolicy Number: [id number] Date:2024-06-20 YAMILKA BAIB: [id number], [place] [address] [facility] 08/22/2024 Yamilka Vas[address], [place] [address]Zqj: (HP) Primary Insurance:Self PayPolicy Number: Effective Date:2024-08-22 [facility] 08/18/2024 YAMILKA VASQUEZDOB: [address], [place] [address]Kjv: (HP) Primary Insurance:[facility] MEDICARE COMPLETEPolicy Number: [id number] Date:2024-06-20 YAMILKA BAIB: [id number], [place] [address] [facility] 07/07/2024 YAMILKA VASQUEZDOB: [address], [place] [address]Bqh: (HP) Primary Insurance:[facility] MEDICAIDPolicy Number: [id number] Date:2022-05-202022-11-16 YAMILKA VASQUEZDOB: [id number], [place] [address] [facility] 07/07/2024 Secondary Insurance:[facility] MEDICAREPolicy Number: [id number] Date: - YAMILKA Abbasi LONZDOB: [id number], [place] [address] [facility] 07/07/2024 Tertiary Insurance:[facility] MEDICARE COMPLETEPolicy Number: [id number] Date:1899-05-201899-05-20 YAMILKA Abbasi PEDRODOB: [id number], [place] [address] [facility] 07/07/2024 Tertiary Insurance:MEDICAREPol cy Number: [id number] Date:2022-05-202023-023326-05-90Ikdz Name:Medicare YAMILKA VASQUEZDOB: [id number], [place] [address] [facility] 07/07/2024 Tertiary Insurance:[employer] MEDICARE COMPLETEPolicy Number: [id number] Date:2024-06-20 YAMILKA Abbasi PEDRODOB: [id number], [place] [address] [facility] 06/17/2024 YAMILKA Abbasi PEDRODOB: [address], [place] [address]Lsf: (HP) Primary Insurance:[facility] MEDICAREPolicy Number: [id number] Date:2023-05-21 YAMILKA Abbasi PEDRODOB: [id number], [place] [address] [facility] 05/18/2024 YAMILKA Ayleen LONZDOB: [address], [place] [address]Rly: (HP) Primary Insurance:[employer] MEDICAREPolicy Number: [id number] Date:2023-05-21 YAMILKA Ayleen LONZDOB: [id number], [place] [address] [facility] 04/27/2024 YAMILKA Ayleen LONZDOB: [address], [place] [address]Yit: (HP) Primary Insurance:[employer] MEDICAREPolicy Number: [id number] Date:2023-05-21 YAMILKA Ayleen CHANDANAZDOB: [id number], [place] [address] [facility] 03/25/2024 YAMILKA Ayleen LONZDOB: [address], [place] [address]Htn: (HP) Primary Insurance:[employer] MEDICAREPolicy Number: [id number] Date:2023-05-21 YAMILKA Ayleen LONZDOB: [id number], [place] [address] [facility] 03/13/2024 YAMILKA Ayleen LONZDOB: [address], [place] [address]Rlb: (HP) Primary Insurance:[employer] MEDICAREPolicy Number: [id number] Date:2023-05-21 YAMILKA Ayleen CHANDANAZDOB: [id number], [place] [address] [facility] 03/11/2024 YAMILKA VASQUEZDOB: [address], [place] [address]Ldm: (HP) Primary Insurance:[employer] MEDICAREPolicy Number: [id number] Date:2023-05-21 YAMILKA Abbasi LONZDOB: [id number], [place] [address] [facility] 03/06/2024 YAMILKA Abbasi LONZDOB: [address], [place] [address]Zme: (HP) Primary Insurance:[employer] MEDICAREPolicy Number: [id number] Date:2023-05-21 YAMILKA Abbasi LONZDOB: [id number], [place] [address] [facility] EPIC 03/05/2024 YAMILKA Abbasi LONZDOB: [address] [place] [address]Ihi: (HP) Primary Insurance:UNITED HEALTHCARE MEDICAREPolicy Number: [id number] Date:2023-05-21 YAMILKA Abbasi CHANDANAZDOB: [id number] [address], [place] [address] [facility] EPIC 03/03/2024 YAMILKA Abbasi LONZDOB: [address] [place] [address]Ubn: (HP) Primary Insurance:UNITED HEALTHCARE MEDICAREPolicy Number: [id number] Date:2023-05-21 YAMILKA Abbasi CHANDANAZDOB: [id number] [address] [place] [address] [facility] EPIC 02/28/2024 YAMILKA F LONZDOB: [address] [place] [address]Mie: (HP) Primary Insurance:UNITED HEALTHCARE MEDICAREPolicy Number: [id number] Date:2023-05-21 YAMILKA Abbasi CHANDANAZDOB: [id number] [address], [place] [address] [facility] EPIC 02/25/2024 YAMILKA Abbasi LONZDOB: [address] [place] [address]Mhz: (HP) Primary Insurance:UNITED HEALTHCARE MEDICAREPolicy Number: [id number] Date:2023-05-21 YAMILKA Abbasi PEDRODOB: [id number] [address] [place] [address] [facility] EPIC 02/25/2024 YAMILKA Abbasi LONZDOB: [address] [place] [address]Hyb: (HP) Primary Insurance:UNITED HEALTHCARE MEDICAREPolicy Number: [id number] Date:2023-05-21 YAMILKA Abbasi PEDRODOB: [id number] [address], [place] [address] [facility] EPIC 02/10/2024 YAMILKA Abbasi CHANDANAZDOB: [address]Tel: (HP) Primary Insurance:MEDICAREPoli cy Number: [id number] Date:2023-06-20 YAMILKA MUNROE [facility] 02/05/2024 YAMILKA Abbasi LONZDOB: [address]Tel: (HP) Primary Insurance:MEDICAREPoli cy Number: [id number] Date:2023-06-20 YAMILKA MUNROE [facility] 02/05/2024 YAMILKA F CHANDANAZDOB: [address]Tel: (HP) Primary Insurance:MEDICAREPoli Number: [id number] Date:[id number] [address], [place] [address]US: YAMILKA MUNROE [facility] 02/05/2024 Secondary Insurance:[facility] Number: [id number] Date:[id number] [address], [place] [address]IH: YAMILKA MUNROE [facility] 02/03/2024 YAMILKA Abbasi PEDRODOB: [address], [place] [address]Gvj: (HP) Primary Insurance:UNITED HEALTHCARE MEDICAREPolicy Number: [id number] Date:2023-05-21 YAMILKA Ayleen PEDRODOB: [id number] [address] [place] [address] [facility] EPIC 01/30/2024 YAMILKA Ayleen PEDRODOB: [address] [place] [address]Prn: (HP) Primary Insurance:UNITED HEALTHCARE MEDICAREPolicy Number: [id number] Date:2023-05-21 YAMILKA Ayleen PEDRODOB: [id number] [address] [place] [address] [facility] EPIC 01/23/2024 YAMILKA Ayleen PEDRODOB: [address] [place] [address]Uat: (HP) Primary Insurance:UNITED HEALTHCARE MEDICAREPolicy Number: [id number] Date:2023-05-21 YAMILKA Ayleen PEDRODOB: [id number] [address] [place] [address] [facility] EPIC 01/06/2024 YAMILKA BAIB: [address] [place] [address]Nly: () Primary Insurance:UNITED HEALTHCARE MEDICAREPolicy Number: [id number] Date:2023-05-21 YAMILKA F PEDRODOB: [id number] [address] [place] [address] [facility] 12/24/2023 YAMILKA Ayleen PEDRODOB: [address] [place] [address]Qqj: () Primary Insurance:UNITED HEALTHCARE MEDICAREPolicy Number: [id number] Date:2023-05-21 YAMILKA F PEDRODOB: [id number], [place] [address] [facility] 12/02/2023 YAMILKA Ayleen PEDRODOB: [address], [place] [address]Yxi: () Primary Insurance:UNITED HEALTHCARE MEDICAREPolicy Number: [id number] Date:2023-05-21 YAMILKA Ayleen PEDRODOB: [id number], [place] [address] [facility] EPIC
[2024-11-24 18:12] VITALS: BP 102/68; PULSE 80; TEMP 37; O2SAT 95; BMI 43.0
--- NOTE | 2024-11-24 18:24 | ED.GENADUL1 ---
HPI HPI - General Adult General Chief complaint: Urogenital-Female Stated complaint: other Time Seen by Provider: 11/24/24 18:12 Source: patient Mode of arrival: ambulance Limitations: no limitations History of Present Illness HPI narrative: Patient is a 54-year-old female who presents to the emergency department today for evaluation concerns for hematuria following Alexis catheter exchange at a nursing facility today. Patient with a history of urinary retention and denies any history of hematuria. She denies any abdominal pain or nausea/vomiting. No back or flank pain. She states she is not on any antiplatelet or anticoagulant medications. No additional sick symptoms of fever/chills. She denies any new bruising or petechiae. PMH per chart review: urinary retention- chronic alexis catheter, brain mass, MS, CHF, HTN, anxiety, BPD, cognitive communication deficit Related Data Home Medications ?Medication ?Instructions ?Recorded ?Confirmed acetaminophen 325 mg tablet 650 mg PO Q6H PRN pain 10/17/24 11/24/24 (Tylenol) albuterol sulfate 2.5 mg/3 mL 2.5 mg inhalation Q4H PRN 10/17/24 11/24/24 (0.083 %) solution for nebulization shortness of breath or wheezing levetiracetam 500 mg tablet 500 mg PO Q12H 10/17/24 11/24/24 mirtazapine 15 mg disintegrating 15 mg PO HS 10/17/24 11/24/24 tablet sennosides 8.6 mg-docusate sodium 2 tab-cap PO .QHS 10/17/24 11/24/24 50 mg tablet (Senna Plus) trazodone 50 mg tablet 25 mg PO HS 10/17/24 11/24/24 bumetanide 1 mg tablet 2 mg PO DAILY 11/24/24 11/24/24 docusate sodium 100 mg capsule 100 mg PO BID 11/24/24 11/24/24 (Colace) ondansetron 8 mg disintegrating 8 mg translingual Q8H PRN nausea 11/24/24 11/24/24 tablet and vomiting potassium chloride 10 mEq 10 meq PO DAILY 11/24/24 11/24/24 capsule,extended release Previous Rx's ?Medication ?Instructions ?Recorded amino acids-protein hydrolysate 15 1 ea PO BID #2,880 mL 10/21/24 gram-100 kcal/30 mL oral liquid pkt (Pro-Stat Sugar Free) metoprolol succinate 100 mg 100 mg PO QD #30 tabs 10/21/24 tablet,extended release 24 hr zinc oxide 40 % topical ointment 1 applic topical QID PRN Skin 10/21/24 (Diaper Rash) Irritation #397 grams Allergies Allergy/AdvReac Type Severity Reaction Status Date / Time No Known Drug Allergies Allergy Verified 11/24/24 18:12 Opioid HPI Opioid Management Most Recent Opioid Data: Last Pain Scale 7 11/24/24, 18:12 Last Pain Intensity 0 10/19/24, 08:26 Last ORT Total Score 0 10/17/24, 07:39 Last ORT Risk Category Low Risk 10/17/24, 07:39 Review of Systems ROS Status of ROS 10 or more systems reviewed and unremarkable except as noted in history and below [facility] Medical History (Updated 11/24/24 @ 20:30 by Jus Schafer NP) Elevated troponin ?R79.89 - Other specified abnormal findings of blood chemistry (ICD-10) Acute diastolic heart failure ?I50.31 - Acute diastolic (congestive) heart failure (ICD-10) Cardiac murmur ?R01.1 - Cardiac murmur, unspecified (ICD-10) Iron deficiency anemia ?D50.9 - Iron deficiency anemia, unspecified (ICD-10) Respiratory acidosis ?E87.29 - Other acidosis (ICD-10) Hypertensive urgency ?I16.0 - Hypertensive urgency (ICD-10) Severe protein-calorie malnutrition ?E43 - Unspecified severe protein-calorie malnutrition (ICD-10) Morbid obesity ?E66.01 - Morbid (severe) obesity due to excess calories (ICD-10) Acute hypoxic respiratory failure ?J96.01 - Acute respiratory failure with hypoxia (ICD-10) Acute combined systolic (congestive) and diastolic (congestive) heart failure ?I50.41 - Acute combined systolic (congestive) and diastolic (congestive) heart failure (ICD-10) Edema, peripheral ?R60.0 - Localized edema (ICD-10) Chronic obstructive pulmonary disease with (acute) exacerbation ?J44.1 - Chronic obstructive pulmonary disease with (acute) exacerbation (ICD-10) Congestive heart failure ?I50.9 - Heart failure, unspecified (ICD-10) Respiratory failure ?J96.90 - Respiratory failure, unspecified, unspecified whether with hypoxia or hypercapnia (ICD-10) Brain mass ?G93.89 - Other specified disorders of brain (ICD-10) Urinary tract infection ?N39.0 - Urinary tract infection, site not specified (ICD-10) Bladder dysfunction ?N31.9 - Neuromuscular dysfunction of bladder, unspecified (ICD-10) Weakness ?R53.1 - Weakness (ICD-10) Dysphagia ?R13.10 - Dysphagia, unspecified (ICD-10) Rhabdomyolysis ?M62.82 - Rhabdomyolysis (ICD-10) Muscle weakness ?M62.81 - Muscle weakness (generalized) (ICD-10) Depression ?F32.A - Depression, unspecified (ICD-10) Sleep apnea ?G47.30 - Sleep apnea, unspecified (ICD-10) Insomnia ?G47.00 - Insomnia, unspecified (ICD-10) Anxiety ?F41.9 - Anxiety disorder, unspecified (ICD-10) Panic disorder ?F41.0 - Panic disorder [episodic paroxysmal anxiety] (ICD-10) Hyperlipemia ?E78.5 - Hyperlipidemia, unspecified (ICD-10) Hypertension ?I10 - Essential (primary) hypertension (ICD-10) Nutritional deficiency ?E63.9 - Nutritional deficiency, unspecified (ICD-10) Bipolar 1 disorder ?F31.9 - Bipolar disorder, unspecified (ICD-10) Pressure injury of sacral region, stage 2 ?L89.152 - Pressure ulcer of sacral region, stage 2 (ICD-10) Obesity ?E66.9 - Obesity, unspecified (ICD-10) Multiple sclerosis ?G35 - Multiple sclerosis (ICD-10) Surgical History (Updated 10/17/24 @ 08:14 by Aliza Jung) History of craniotomy ?Z98.890 - Other specified postprocedural states (ICD-10) Social History Highest level of school completed/degree received: don't know Little interest or pleasure in doing things: not at all Feeling down, depressed, or hopeless: not at all Exam Narrative Exam Narrative: Constituational: Awake/ alert, no apparent distress, obese, well-hydrated HENMT: normocephalic, external ears normal, moist oral mucous membranes and oropharynx normal Eyes: EOMI and conjunctivae normal Neck: ROM intact Chest: inspection of chest normal Respiratory: Normal respiratory effort, clear to auscultation bilaterally Cardio: regular rate and regular rhythm GI: soft to palpation and non-tender : + Alexis catheter with sanguinous appearing urine Back: nontender MSK: ROM intact, +NVI Skin: no rashes or petechiae Neuro: no focal deficits Psych: mental status grossly normal Constitutional Vital Signs, click to edit/add: Last Vital Signs Temp 98.8 F 11/24/24 22:08 Pulse 83 11/24/24 22:08 Resp 18 11/24/24 22:08 BP 113/74 11/24/24 22:08 Pulse Ox 95 11/24/24 22:08 O2 Del Method Room Air 11/24/24 18:12 Course Vital Signs Vital signs: Vital Signs Temperature 98.6 F 11/24/24 18:12 Pulse Rate 80 11/24/24 18:12 Respiratory Rate 18 11/24/24 18:12 Blood Pressure 102/68 11/24/24 18:12 Pulse Oximetry 95 11/24/24 18:12 Oxygen Delivery Method Room Air 11/24/24 18:12 Temperature 98.8 F 11/24/24 22:08 Pulse Rate 83 11/24/24 22:08 Respiratory Rate 18 11/24/24 22:08 Blood Pressure 113/74 11/24/24 22:08 Pulse Oximetry 95 11/24/24 22:08 Oxygen Delivery Method Room Air 11/24/24 18:12 Medical Decision Making MDM Narrative Medical decision making narrative: Patient is a chronically ill-appearing 54-year-old female with history of urinary retention and a resident of a [facility] facility who presented to the ER today for evaluation of concerns for hematuria following a Alexis catheter exchange today at which time she had normal clear/yellow urine prior to exchange of this catheter. Examination vital signs overall stable. Patient has noted to have obvious hematuria in her Alexis bag however this does not appear to be blood. Alexis catheter was irrigated manually by nursing. No clots present. Urine subsequently began to look more clear on serial reevaluations following irrigation. UA is negative for UTI however noted positive for hematuria. Stable and showed no significant leukocytosis, stable anemia with Hgb 8.7, no thrombocytopenia. Lites including hepatic function stable. Renal function noted to be elevated and 1.9. This is overall down trended from prior on 11/07 with creatinine 3.0. Did subsequently discuss patient's condition and labs including elevated renal function with Regina reyna who is the patient's PCP at the nursing facility and was informed the patient is followed by nephrology and urology. Nephrology had increased the patient's Bumex recently and on 11/23 patient's creatinine was 1.6. Plan upon discharge for patient to follow-up with nephrology and urology. On serial reevaluation patient was complaining of some suprapubic discomfort that was initially attributed to bladder irrigation however she continued to report some discomfort throughout the ER visit. Subsequent CT imaging of the abdomen pelvis does not show any critical findings however is concerning for possible developing cystitis. This noted with leukocytes and trace bacteria is overall improved per prior trends of urinalyses and additionally patient with normal WBCs will hold off on any antibiotics at this time and defer any antibiotic therapy to her PCP upon returning to the nursing facility. Findings with the patient including recommendations for supportive care of hematuria. Discussed signs and symptoms of any worsening condition and when to consider reevaluation by the emergency department. Patient verbalized an understanding of this and is agreeable with the plan to be discharged home. Medical Records Medical records reviewed: Yes I reviewed the patient's medical records Lab Data Lab results reviewed: Yes I reviewed the patient's lab results Labs: Lab Results 11/24/24 11/24/24 Range/Units 18:25 18:45 WBC 10.9 (4.0-11.0) 10^3/uL RBC 3.20 L (4.20-5.40) 10^6/uL Hgb 8.7 L (12.0-16.0) g/dL Hct 28.4 L (36.0-48.0) % MCV 88.8 (81.0-99.0) fL MCH 27.2 (26.7-34.0) pg MCHC 30.6 (29.9-35.2) g/dL RDW 16.8 H (11.0-15.0) % Plt Count 220 (150-450) 10^3/uL MPV 10.4 (9.5-13.5) fL Neut % (Auto) 76.9 H (43.0-75.0) % Lymph % (Auto) 7.8 L (20.5-60.0) % Alpine % (Auto) 11.0 (1.7-12.0) % Eos % (Auto) 3.6 (0.9-7.0) % Baso % (Auto) 0.3 (0.2-2.0) % Neut # (Auto) 8.4 H (1.4-6.5) 10^3/uL Lymph # (Auto) 0.9 L (1.2-3.8) 10^3/uL Alpine # (Auto) 1.2 H (0.3-0.8) 10^3/uL Eos # (Auto) 0.4 (0.0-0.7) 10^3/uL Baso # (Auto) 0.0 (0.0-0.1) 10^3/uL Abs Immat Gran (auto) 0.04 H (0.00-0.03) 10^3/uL Imm/Tot Granulo (auto) 0.4 (0.0-0.5) % PT 11.0 (9.0-11.6) sec INR 1.04 Sodium 148 H (136-145) mmol/L Potassium 3.4 L (3.5-5.1) mmol/L Chloride 106 (98-107) mmol/L Carbon Dioxide 34.0 H (21.0-32.0) mmol/L Anion Gap 11.4 BUN 23.0 H (7.0-18.0) mg/dL Creatinine 1.94 H (0.55-1.02) mg/dL Est GFR ( Amer) 32 L (>=60 mL/min/1.73m^2) Est GFR (Non-Af Amer) 27 L (>=60 mL/min/1.73m^2) BUN/Creatinine Ratio 11.9 Glucose 155 H (74-106) mg/dL Calcium 8.4 L (8.5-10.1) mg/dL Total Bilirubin 0.3 (0.2-1.0) mg/dL AST 12 L (15-37) U/L ALT 8 L (14-59) U/L Alkaline Phosphatase 71 (46-116) U/L Total Protein 5.8 L (6.4-8.2) g/dL Albumin 2.2 L (3.4-5.0) g/dL Globulin 3.6 g/dL Albumin/Globulin Ratio 0.6 Urine Color Red A (YELLOW) Urine Clarity Clear (CLEAR) Urine pH 7.5 (5.0-9.0) Ur Specific [place] 1.020 (1.005-1.025) Urine Protein >=300 A (NEG/TRACE) mg/dL Urine Glucose (UA) 250 A (NEGATIVE) mg/dL Urine Ketones Negative (NEGATIVE) mg/dL Urine Occult Blood Large A (NEGATIVE) Urine Nitrite Negative (NEGATIVE) Urine Bilirubin Negative (NEGATIVE) Urine Urobilinogen 0.2 (0.2-1.0) EU/dL Ur Leukocyte Esterase Trace A (NEGATIVE) Urine RBC >100 A (0-2) #/HPF Urine WBC 2-5 A (NONE SEEN) #/HPF Ur Squamous Epith Cells None seen (NONE/RARE) #/LPF Urine Crystals None seen (None Seen) #/HPF Urine Bacteria Trace A (NONE SEEN) #/HPF Urine Casts None seen (NONE SEEN) #/LPF Urine Mucus None seen (NONE SEEN) Ur Culture Indicated? No Imaging Data CT scan - abdomen: Radiologist's impression: ITS Impressions Abdomen/Pelvis CT 11/24/24 19:32 IMPRESSION: Severe bladder wall thickening and surrounding moderate changes within space of Retzius worrisome for cystitis. Moderate severe right-sided hydroureteronephrosis and [id number] left-sided hydroureteronephrosis likely related to the bladder wall thickening versus pyelonephritis. Impression dictated by: Franklin Paniagua M.D. 11/24/2024 8:06 PM Dictation Location: [place] [address] Electronically authenticated by: [id number] Y Date: 11/24/2024 20:06 Discharge Plan Discharge Chief Complaint: Urogenital-Female Clinical Impression: Hematuria, BRANDON (acute kidney injury) Patient Disposition: Home, Self-Care Prescriptions / Home Meds: No Action mirtazapine 15 mg tablet,disintegrating 15 mg PO HS sennosides-docusate sodium [Senna Plus] 8.6-50 mg tablet 2 tab-cap PO .QHS Rx Instructions: at bedtime acetaminophen [Tylenol] 325 mg tablet 650 mg PO Q6H PRN (Reason: pain) trazodone 50 mg tablet 25 mg PO HS levetiracetam 500 mg tablet 500 mg PO Q12H albuterol sulfate 2.5 mg /3 mL (0.083 %) solution for nebulization 2.5 mg inhalation Q4H PRN (Reason: shortness of breath or wheezing) metoprolol succinate 100 mg Tablet Extended Release 24 Hr 100 mg PO QD Qty: 30 11RF zinc oxide [Diaper Rash] 40 % Ointment 1 applic topical QID PRN (Reason: Skin Irritation) Qty: 397 11RF Pro-Stat Sugar Free 15 gram- 100 kcal/30 mL Liquid In Packet 1 ea PO BID Qty: 2880 11RF ondansetron 8 mg tablet,disintegrating 8 mg translingual Q8H PRN (Reason: nausea and vomiting) potassium chloride 10 mEq capsule, extended release 10 meq PO DAILY docusate sodium [Colace] 100 mg capsule 100 mg PO BID bumetanide 1 mg tablet 2 mg PO DAILY Print Language: Citizen Of [place] Instructions: Hematuria (ED) Additional Instructions: With urology and nephrology for reevaluation of your kidney function and hematuria. Referrals: Kristin Gracia NP [Primary Care Provider, Family Practice] - 1 week Discharge Date/Time: 11/24/24 22:18
--- OUTSIDE RECORDS SUMMARY | 2024-11-24 18:37 | XMS_ITS | Encounter Summary ---
Author Organization [facility] Address [facility] [place] [address] Care Team Providers Care Flight Dispatcher Name Role Phone Valdez Acosta MD Primary Care Provider [phone] Dian Smith PA-C Unavailable [phone] Malinad Lopez APRN.SENIOR SOFTWARE TESTER Unavailable + [phone] Source Comments In the event this information is protected by the Federal Confidentiality of Alcohol and Drug AbusePatient Records regulations: The Federal rules restrict any use of the information to criminally investigate or prosecute any alcohol or drug abuse patient.[facility] Encounter Details Date Type Department Care Team (Late st Contact Info) Description 09/08/2021 Patient Msg Neurology [address] [id number] Provider, Ccskyler For infusion approval you needed [...] Never 08/02/2020 How often do you attend zoroastrian or caodaism serv ices? Never 08/02/2020 Do you belong to any clubs o r organizations such as zoroastrian groups, unions, fraternal or athletic groups, or [...] Answer Date Recorded PHQ-2 score 5 10/30/2020 [facility] - Occupational Stress Questionnaire Answer Date [...] N ot on file 04/27/2020 Data from: https://www.neighborhoodatlas.medicine.[facility].edu/. Last address used for calculation Not [...] on filedocumented in this encounter Care Teams Flight Dispatcher Relationship Specialty Start Date End Date Valdez Acosta MD [address] [place] [address] PCP - General Internal Medicine 11/01/20 Dian Smith PA-C [address] [place] [phone] Environmental Emergencies Assistant Internal Medicine 04/26/24 05/21/24 Malinda Lopez APRN.SENIOR SOFTWARE TESTER [address] [place] [address] Environmental Emergencies Assistant Family Medicine 04/26/24 documented as of this encounter
--- OUTSIDE RECORDS SUMMARY | 2024-11-24 18:37 | XMS_ITS | Encounter Summary ---
Author Organization [facility] Address [address] [place] [address] Care Team Providers Care Electrical Engineering Technician Name Role Phone Valdez Acosta MD Primary Care Provider [phone] Dian Smith PA-C Unavailable [phone] Malinda Lopez APRN.PARTS CATALOGUER Unavailable + [phone] Source Comments In the event this information is protected by the Federal Confidentiality of Alcohol and Drug AbusePatient Records regulations: The Federal rules restrict any use of the information to criminally investigate or prosecute any alcohol or drug abuse patient.[facility] Encounter Details Date Type Department Care Team (Late st Contact Info) Description 11/06/2020 Patient Msg MRI J [address] [place] [address] Provider, Ccf MRI Screening Social [...] How often do you attend rastafari or episcopalian serv ices? Never 08/02/2020 Do you belong [...] Answer Date Recorded PHQ-2 score 5 10/30/2020 [facility] - Occupational [...] place to sleep or slept in a half-way (including now)? No 08/02/2020 Area Deprivation Index Answer Date Chris rded National Score (1-100), lower number is lower ri sk Not on file 04/27/2020 State Score (1-10), lower number is lower risk N ot on file 04/27/2020 Data from: https://www.neighborhoodatlas.medicine.[facility].edu/. Last address used for calculation Not on [...] on filedocumented in this encounter Care Teams Electrical Engineering Technician Relationship Specialty Start Date End Date Valdez Acosta MD [address] [place] [address] PCP - General Internal Medicine 11/01/20 Dian Smith PA-C [address] [place] [address] Online Journalist Internal Medicine 04/26/24 05/21/24 Malinda Lopez APRN.PARTS CATALOGUER [address] [place] [address] Online Journalist Family Medicine 04/26/24 documented as of this encounter
--- OUTSIDE RECORDS SUMMARY | 2024-11-24 18:37 | XMS_ITS | Encounter Summary ---
Author Organization [facility] Address [address] [place] [address] Care Team Providers Care Screening Tech Name Role Phone Kirk Wyatt Segundo Primary Care Provider Frances Hills (Rn) lye bath operator Provider Valdez Bhandari MD Primary Care Provider [phone] Dian Smith PA-C Unavailable [phone] Malinda Lopez APRN.WOOL HAT FLANGER Unavailable + [phone] Source Comments In the event this information is protected by the Federal Confidentiality of Alcohol and Drug AbusePatient Records regulations: The Federal rules restrict any use of the information to criminally investigate or prosecute any alcohol or drug abuse patient.[facility] Reason for Visit * Reason Comments Medication Preauthorization [employer] Encounter Details Date Type Department Care Team (Late st Contact Info) Description 12/23/2015 [facility] [address] [place] [address] [place] [address] [place] [address] Medication Preauthorization ([employer]) Social History Tobacco [...] documented as of this encounter Care Teams Screening Tech Relationship Specialty Start Date End Date Wyatt Bradley PCP - General Internal Medicine 05/21/12 12/05/17 Frances Hills (Rn), RN PCP - General 12/06/17 10/31/20 Valdez Acosta MD [address] [place] [address] PCP - General Internal Medicine 11/01/20 Dian Smith PA-C [facility] [place] [address] Millinery Salesperson Internal Medicine 04/26/24 05/21/24 Malinda Lopez, A&P TECHNICIAN.[employer] [address] [place] [address] Millinery Salesperson Family Medicine 04/26/24 documented as of this encounter
--- OUTSIDE RECORDS SUMMARY | 2024-11-24 18:37 | XMS_ITS | Encounter Summary ---
Author Organization [facility] Address [facility] [place] [address] Care Team Providers Care Barrel Liner Name Role Phone Valdez Acosta MD Primary Care Provider [phone] Dian Smith PA-C Unavailable [phone] Malinda Lopez APRN.COTTON TIER Unavailable + [phone] Source Comments In the event this information is protected by the Federal Confidentiality of Alcohol and Drug AbusePatient Records regulations: The Federal rules restrict any use of the information to criminally investigate or prosecute any alcohol or drug abuse patient.[facility] Encounter Details Date Type Department Care Team (Late st Contact Info) Description 04/22/2021 Patient Msg Neurology [address] [phone] Provider, Ccf Appointment with Aylin Garrison Social [...] Never 08/02/2020 How often do you attend hinduism or restorationism serv ices? Never 08/02/2020 Do you belong to any clubs o r organizations such as hinduism groups, unions, fraternal or athletic groups, or [...] Answer Date Recorded PHQ-2 score 5 10/30/2020 [facility] - Occupational Stress Questionnaire Answer Date [...] slept in a alf (including now)? No 08/02/2020 Area Deprivation Index Answer Date Chris rded National Score (1-100), lower number is lower ri sk Not on file 04/27/2020 State Score (1-10), lower number is lower risk N ot on file 04/27/2020 Data from: https://www.neighborhoodatlas.medicine.[facility].edu/. Last address used for calculation [...] on filedocumented in this encounter Care Teams Barrel Liner Relationship Specialty Start Date End Date Valdez Acosta MD [address] [place] [address] PCP - General Internal Medicine 11/01/20 Dian Smith PA-C [address] [place] [address] Advertising Sales Associate Internal Medicine 04/26/24 05/21/24 Malinda Lopez APRN.COTTON TIER [address] [place] [address] Advertising Sales Associate Family Medicine 04/26/24 documented as of this encounter
--- OUTSIDE RECORDS SUMMARY | 2024-11-24 18:37 | XMS_ITS | Encounter Summary ---
Author Organization [facility] Address [address] [place] [address] Phone Care Team Providers Care Label Tacker Name Role Phone Unavailable Primary Care Provider Unavailabl e Encounter Details Date Type Department Care Team (Late st Contact Info) Description 02/05/2024 Scanned Document [facility] [address] Virtual [place] [id number] Scanning, Generic Provider Social History Tobacco Use [...]
--- OUTSIDE RECORDS SUMMARY | 2024-11-24 18:37 | XMS_ITS | Encounter Summary ---
Author Organization [facility] Address [facility] [place] [address] Care Team Providers Care Lead Producer Name Role Phone Valdez Acosta MD Primary Care Provider [phone] Dian Smith PA-C Unavailable + [phone] Malinda Lopez AUTOMATION TENDER.ENGINEERING PATTERNMAKER Unavailable + [phone] Source Comments In the event this information is protected by the Federal Confidentiality of Alcohol and Drug AbusePatient Records regulations: The Federal rules restrict any use of the information to criminally investigate or prosecute any alcohol or drug abuse patient.[facility] Encounter Details Date Type Department Care Team (Late st Contact Info) Description 06/13/2021 Patient [facility] [address] [place] [phone] Gi Khan APRN.ENGINEERING PATTERNMAKER [address] [place] [address] tc Social History Tobacco Use [...] How often do you attend druze or yarsani serv ices? Never 08/02/2020 Do you belong [...] slept in a chcf (including now)? No 08/02/2020 Area Deprivation Index Answer Date Chris rded National Score (1-100), lower number is lower ri sk Not on file 04/27/2020 State Score (1-10), lower number is lower risk N ot on file 04/27/2020 Data from: https://www.neighborhoodatlas.medicine.[facility].edu/. Last address used for calculation [...] filedocumented in this encounter Care Teams Lead Producer Relationship Specialty Start Date End Date Valdez Acosta MD [address] [place] [address] PCP - General Internal Medicine 11/01/20 Dian Smith PA-C [address] [place] [address] Crate Tier Internal Medicine 04/26/24 05/21/24 Malinda Lopez APRN.ENGINEERING PATTERNMAKER [address] [place] [address] Crate Tier Family Medicine 04/26/24 documented as of this encounter
--- OUTSIDE RECORDS SUMMARY | 2024-11-24 18:37 | XMS_ITS | Encounter Summary ---
Author Organization [facility] Address [address] [place] [address] Care Team Providers Care Blender/Braze Applicator Name Role Phone Frances Hills (Rn) communication equipment mechanic Provider Valdez Bhandari MD Primary Care Provider [phone] Dian Smith PA-C Unavailable + [phone] Malinda Lopez APRN.[facility] Unavailable + [phone] Source Comments In the event this information is protected by the Federal Confidentiality of Alcohol and Drug AbusePatient Records regulations: The Federal rules restrict any use of the information to criminally investigate or prosecute any alcohol or drug abuse patient.[facility] Encounter Details Date Type Department Care Team (Late st Contact Info) Description 08/03/2020 [facility] [address] [place] [address] Aylin Garrison PA-C [address] [place] [address] RE: Non-Urgent Medical Question Social History [...] How often do you attend episcopalian or nondenominational serv ices? Never 08/02/2020 Do you belong [...] Answer Date Recorded PHQ-2 score 3 08/02/2020 [facility] [place] of Occupat ional Health - Occupational Stress [...] slept in a halfway (including now)? No 08/02/2020 Area Deprivation Index Answer Date Chris rded National Score (1-100), lower number is lower ri sk Not on file 04/27/2020 State Score (1-10), lower number is lower risk N ot on file 04/27/2020 Data from: https://www.neighborhoodatlas.medicine.[facility].edu/. Last address used for calculation Not [...] documented as of this encounter Care Teams Blender/Braze Applicator Relationship Specialty Start Date End Date August (Rn), RN PCP - General 12/06/17 10/31/20 Valdez Acosta MD [address] [place] [address] PCP - General Internal Medicine 11/01/20 Dian Smith PA-C [address] [place] [address] Census Enumerator Internal Medicine 04/26/24 05/21/24 Malinda Lopez, BOWLING BALL GRADER.POWDER GUARD [address] [place], [place] [address] [place] [address] Census Enumerator Family Medicine 04/26/24 documented as of this encounter
--- OUTSIDE RECORDS SUMMARY | 2024-11-24 18:37 | XMS_ITS | Encounter Summary ---
Author Organization [facility] Address [address] [place] [address] Care Team Providers Care Coal Unloader Name Role Phone Frances Hills (Rn) aging room operator Provider Valdez Bhandari MD Primary Care Provider [phone] Dian Smith PA-C Unavailable + [phone] Malinda Lopez APRN.[facility] Unavailable + [phone] Source Comments In the event this information is protected by the Federal Confidentiality of Alcohol and Drug AbusePatient Records regulations: The Federal rules restrict any use of the information to criminally investigate or prosecute any alcohol or drug abuse patient.[facility] Encounter Details Date Type Department Care Team (Late st Contact Info) Description 10/19/2020 [facility] [address] [place] [address] Aylin Garrison PA-C [address] [place] [address] RE: Non-Urgent Medical Question Social History [...] Never 08/02/2020 How often do you attend jew or yarsani serv ices? Never 08/02/2020 Do you belong to any clubs o r organizations such as jew groups, unions, fraternal or athletic groups, or [...] Answer Date Recorded PHQ-2 score 3 08/02/2020 [facility] of Occupat ional Health - Occupational Stress [...] N ot on file 04/27/2020 Data from: https://www.neighborhoodatlas.medicine.[facility].edu/. Last address used for calculation Not [...] on filedocumented in this encounter Care Teams Coal Unloader Relationship Specialty Start Date End Date ReinierAugust (Rn), RN PCP - General 12/06/17 10/31/20 Valdez Acosta MD [address] [place] [address] PCP - General Internal Medicine 11/01/20 Dian Smith PA-C [address] [place] [address] Inspector And Clerk Internal Medicine 04/26/24 05/21/24 Malinda Lopez APRN.CAPITAL PROJECT ENGINEER [address] [place] [address] Inspector And Clerk Family Medicine 04/26/24 documented as of this encounter
--- OUTSIDE RECORDS SUMMARY | 2024-11-24 18:37 | XMS_ITS | Encounter Summary ---
Author Organization [facility] Address [address] [place] [address] Care Team Providers Care Termination Clerk Name Role Phone Valdez Acosta MD Primary Care Provider [phone] Dian Smith PA-C Unavailable + [phone] Malinda Lopez APRN.[facility] Unavailable + [phone] Source Comments In the event this information is protected by the Federal Confidentiality of Alcohol and Drug AbusePatient Records regulations: The Federal rules restrict any use of the information to criminally investigate or prosecute any alcohol or drug abuse patient.[facility] Encounter Details Date Type Department Care Team (Late st Contact Info) Description 02/20/2022 Patient Msg Neuropyschology [address] [place] [address] Leslie Dailey, PhD [address] [place] [address] Appointment Cancellation Request Social History Tobacco Use [...] How often do you attend jew or protestant serv ices? Never 08/02/2020 Do [...] Answer Date Recorded PHQ-2 score 5 09/15/2021 [facility] of Occupat ional Health - Occupational [...] place to sleep or slept in a prison (including now)? No 08/02/2020 Area Deprivation Index Answer Date Chris rded National Score (1-100), lower number is lower ri sk 60 11/14/2021 State Score (1-10), lower number is lower risk N ot on file 11/14/2021 Data from: https://www.neighborhoodatlas.medicine.[facility].edu/. Last address used for calculation [address] [...] on filedocumented in this encounter Care Teams Termination Clerk Relationship Specialty Start Date End Date Valdez Acosta MD [address] [place] [address] PCP - General Internal Medicine 11/01/20 Dian Smith PA-C [address] [place] [address] Microbiology Supervisor Internal Medicine 04/26/24 05/21/24 Malinda Lopez APRN.ACCOUNTS PAYABLES CLERK [address] [place] [address] Microbiology Supervisor Family Medicine 04/26/24 documented as of this encounter
--- OUTSIDE RECORDS SUMMARY | 2024-11-24 18:37 | XMS_ITS | Encounter Summary ---
Author Organization [facility] Address [address] [place] [address] Care Team Providers Care Dishwasher Busser Name Role Phone Kirk Wyatt Segundo Primary Care Provider Frances Hills (Rn) running rigger Provider Valdez Bhandari MD Primary Care Provider [phone] Dian Smith PA-C Unavailable + [phone] Malinda Lopez APRN.GREENHOUSE SPECIALIST Unavailable + [phone] Source Comments In the event this information is protected by the Federal Confidentiality of Alcohol and Drug AbusePatient Records regulations: The Federal rules restrict any use of the information to criminally investigate or prosecute any alcohol or drug abuse patient.[facility] Reason for Visit * Reason Comments Medication Preauthorization tecfidera Encounter Details Date Type Department Care Team (Late st Contact Info) Description 07/13/2016 [facility] [address] [address] [place] [address] [place] [address] Medication Preauthorization (tecfidera) Social History Tobacco [...] documented as of this encounter Care Teams Dishwasher Busser Relationship Specialty Start Date End Date Wyatt Bradley PCP - General Internal Medicine 05/21/12 12/05/17 Frances Hills (Rn), RN PCP - General 12/06/17 10/31/20 Valdez Acosta MD [address] [place] [address] PCP - General Internal Medicine 11/01/20 Dian Smith PA-C [facility] [place] [address] Patient Flow Coordinator Internal Medicine 04/26/24 05/21/24 Malinda Lopez, ALARM MECHANIC.[facility] [address] [place] [address] Patient Flow Coordinator Family Medicine 04/26/24 documented as of this encounter
--- OUTSIDE RECORDS SUMMARY | 2024-11-24 18:37 | XMS_ITS | Clinical Summary ---
Author Organization [facility] Address [address] [place] [address] Phone Care Team Providers Care Lead Manufacturing Technician Name Role Phone Unavailable Primary Care Provider [...] - 2023-2 5 season) 2024 Influenza Vaccine (#1) 2025 HIB Vaccines Aged Out No longer eligi ble based on patient's age to complete this topic HPV Vaccines (No Doses Required) Completed Hepatitis A Vaccines Aged Out No long [...]
--- OUTSIDE RECORDS SUMMARY | 2024-11-24 18:37 | XMS_ITS | Encounter Summary ---
Author Organization [facility] Address [place] [address] Care Team Providers Care Health And Wellness Sales Consultant Name Role Phone Kirk Wyatt Segundo Primary Care Provider Frances Hills (Rn) credit risk manager Provider Valdez Bhandari MD Primary Care Provider [phone] Dian Smith PA-C Unavailable + [phone] Malinda Lopez APRN.MACHINE INKER Unavailable + [phone] Source Comments In the event this information is protected by the Federal Confidentiality of Alcohol and Drug AbusePatient Records regulations: The Federal rules restrict any use of the information to criminally investigate or prosecute any alcohol or drug abuse patient.[facility] Encounter Details Date Type Department Care Team (Late st Contact Info) Description 08/11/2015 Patient Msg Medical Records [address] [place] [address] Provider, Ccf CBC results Social History Tobacco [...] documented as of this encounter Care Teams Health And Wellness Sales Consultant Relationship Specialty Start Date End Date Wyatt Bradley PCP - General Internal Medicine 05/21/12 12/05/17 Frances Hills (Rn), MOE PCP - General 12/06/17 10/31/20 Valdez Acosta MD [address] [facility] [place] [address] PCP - General Internal Medicine 11/01/20 Dian Smith PA-C [address] [place], [place] [phone] Space Operations Officer Internal Medicine 04/26/24 05/21/24 Malinda Lopez, FOLLOW UP SPECIALIST.[facility] [address] [place] [address] [phone] Space Operations Officer Family Medicine 04/26/24 documented as of this encounter
--- OUTSIDE RECORDS SUMMARY | 2024-11-24 18:37 | XMS_ITS | Encounter Summary ---
Author Organization [facility] Address [address] [place] [address] Care Team Providers Care Community Living Instructor Name Role Phone Frances Hills (Rn) dishtank operator Provider Valdez Bhandari MD Primary Care Provider [phone] Dian Smith PA-C Unavailable + [phone] Malinda Lopez APRN.[facility] Unavailable + [phone] Source Comments In the event this information is protected by the Federal Confidentiality of Alcohol and Drug AbusePatient Records regulations: The Federal rules restrict any use of the information to criminally investigate or prosecute any alcohol or drug abuse patient.[facility] Encounter Details Date Type Department Care Team (Late st Contact Info) Description 08/03/2020 [facility] [address] [place] [address] Aylin Garrison PA-C [address] [place] [address] RE: Non-Urgent Medical Question Social History [...] Never 08/02/2020 How often do you attend yazdanism or mu-ism serv ices? Never 08/02/2020 Do you belong [...] Answer Date Recorded PHQ-2 score 3 08/02/2020 [facility] [place] of Occupat ional Health - Occupational [...] N ot on file 04/27/2020 Data from: https://www.neighborhoodatlas.medicine.[facility].edu/. Last address used for calculation [...] documented as of this encounter Care Teams Community Living Instructor Relationship Specialty Start Date End Date August (Rn), RN PCP - General 12/06/17 10/31/20 Valdez Acosta MD [address] [place] [address] PCP - General Internal Medicine 11/01/20 Dian Smith PA-C [address] [place] [address] Auto Detailer Internal Medicine 04/26/24 05/21/24 Malinda Lopez, ROUTE SERVICE REPRESENTATIVE.TRAVELING ELECTRICIAN [address] [place], [place] [address] [place] [address] Auto Detailer Family Medicine 04/26/24 documented as of this encounter
--- OUTSIDE RECORDS SUMMARY | 2024-11-24 18:37 | XMS_ITS | Encounter Summary ---
Author Organization [facility] Address [facility] [place] [address] Care Team Providers Care Director Of Student Affairs Name Role Phone Kirk Wyatt Segundo Primary Care Provider Frances Hills (Rn) shadowgraph scale operator Provider Valdez Bhandari MD Primary Care Provider [phone] Dian Smith PA-C Unavailable + [phone] Malinda Lopez APRN.SENIOR JAVA SOFTWARE DEVELOPER Unavailable + [phone] Source Comments In the event this information is protected by the Federal Confidentiality of Alcohol and Drug AbusePatient Records regulations: The Federal rules restrict any use of the information to criminally investigate or prosecute any alcohol or drug abuse patient.[facility] Encounter Details Date Type Department Care Team (Late st Contact Info) Description 08/30/2016 Patient Msg Medical Records [address] [place] [address] Provider, [facility] Labs Social History Tobacco Use [...] documented as of this encounter Care Teams Director Of Student Affairs Relationship Specialty Start Date End Date Wyatt Bradley PCP - General Internal Medicine 05/21/12 12/05/17 Frances Hills (Rn), RN PCP - General 12/06/17 10/31/20 Valdez Acosta MD [address] [place] [address] PCP - General Internal Medicine 11/01/20 Dian Smith PA-C [address] [place], [place] [phone] Rx Specialist Internal Medicine 04/26/24 05/21/24 Malinda Lopez, RISK MANAGEMENT INTERN.[facility] [address] [place] [address] [phone] Rx Specialist Family Medicine 04/26/24 documented as of this encounter
--- OUTSIDE RECORDS SUMMARY | 2024-11-24 18:37 | XMS_ITS | Clinical Summary ---
Author Organization [facility] Address [address] [place] [address] Care Team Providers Care Briquette Operator Name Role Phone Valdez Acosta MD Primary Care Provider [phone] Malinda Lopez APRN.UNIT ASSEMBLER Unavailable [phone] Allergies No known active allergies Medications * [...] Never 08/02/2020 How often do you attend restoration or zoroastrianism serv ices? Never 08/02/2020 Do you belong to any clubs o r organizations such as restoration groups, unions, fraternal or athletic groups, or [...] Answer Date Recorded PHQ-2 score 5 09/05/2023 [facility] - Occupational Stress Questionnaire Answer Date Recorded [...] risk 4 09/20/2022 Data from: https://www.neighborhoodatlas.medicine.[facility].edu/. Last address used for calculation [address] [...] Annual We llness Visit 05/20/2024 Influenza Vaccine (#1) 2025 , 04/30/2023, 03/07/2022, Additional history exists Diabetes Screening [...] - 8.0 g/dL 05/22/2023 2:38 PM EST [facility] Albumin 4.0 3.9 - 4.9 g/dL 05/22/2023 2:38 PM EST [facility] Calcium, Total 9.4 8.5 - 10.2 mg/dL 05/22/2023 2:38 PM EST [facility] Bilirubin, Total 0.3 0.2 - 1.3 mg/dL 05/22/2023 2:38 PM EST [facility] Alkaline Phosphatase 90 34 - 123 U/L 05/22/2023 2:38 PM EST [facility] AST 25 13 - 35 U/L 05/22/2023 2:38 PM EST [facility] ALT 23 7 - 38 U/L 05/22/2023 2:38 PM EST [facility] Glucose 88 74 - 99 mg/dL 05/22/2023 2:38 PM EST [facility] Comment: The [place] Diabetes Association (ADA) provides guidance for cutoff [...] Standards of Medical Care in Diabetes 2016, [place] Diabetes Association. Diabetes Care. 2016.39(Suppl 1). BUN 17 7 - 21 mg/dL 05/22/2023 2:38 PM EST [facility] Creatinine 1.04(H) 0.58 - 0.96 mg/dL 05/22/2023 2:38 PM EST [facility] Sodium 143 136 - 144 mmol/L 05/22/2023 2:38 PM EST [facility] Potassium 3.7 3.7 - 5.1 mmol/L 05/22/2023 2:38 PM [facility] Chloride 103 97 - 105 mmol/L 05/22/2023 2:38 PM EST [facility] CO2 27 22 - 30 mmol/L 05/22/2023 2:38 PM EST [facility] Anion Gap 13 9 - 18 mmol/L 05/22/2023 2:38 PM EST [facility] Estimated Glomerular Filtration Rate 64 >=60 mL/min/1. 73m 05/22/2023 2:38 PM EST [facility] Comment:Estimated Glomerular Filtration Rate (eGFR) is [...] us Aylin Garrison PA-C LABORATORY Final Result [facility] [address] [place] [address], * (ABNORMAL) LIPID PANEL BASIC (09/18/2021 8:07 AM EDT) [facility] Cholesterol, Total 142 <200 mg/dL 09/18/2021 4:40 PM EDT [facility] Comment: <200 mg/dL, Desirable 200-239 mg/dL, Borderline high >239 mg/dL, High Triglyceride 157(H) <150 mg/dL 09/18/2021 4:40 PM EDT [facility] Comment: <150 mg/dL, Normal 150-199 mg/dL, Borderline high 200-499 mg/dL, High >499 mg/dL, Very high HDL Cholesterol 39(L) >39 mg/dL 4:40 PM T [facility] Comment: 40-59 mg/dL, Acceptable >59 mg/dL, High: Negative risk factor for coronary heart disease <40 mg/dL, Low: Positive risk factor for coronary heart disease Non HDL Cholesterol 103 <130 mg/dL 09/18/2021 4:40 PM EDT [facility] Comment: <130 mg/dL, Optimal 130-159 mg/dL, Near optimal/above optimal 160-189 mg/dL, Borderline high 190-219 mg/dL, High >219 mg/dL, Very high Secondary prevention optimal non HDL Cholesterol levels are recommended to be <100 mg/dL Fasting Time 14 hours hrs 09/18/2021 4:40 PM T [facility] VLDL Cholesterol 31(H) <30 mg/dL 09/19/19 4:40 PM EDT [facility] TC:HDL Ratio 3.64 <5.10 09/18/2021 4:40 PM T [facility] LDL Cholesterol, Calculated 72 <100 mg/dL 09/18/2021 4:40 PM T [facility] Comment: <100 mg/dL, Optimal 100-129 mg/dL, Near optimal/above optimal 130-159 mg/dL, Borderline high 160-189 mg/dL, High >189 mg/dL, Very high Secondary prevention optimal LDL Cholesterol levels are recommended to be < 70 mg/dL LDL:HDL Ratio 1.85 <2.54 09/18/2021 4:40 PM T [facility] Comment: Reference: 1. National Cholesterol Education Program ATP III Guideline At-A-Glance Quick Desk Reference: National Heart, Lung, and Blood [place]. National Institutes of Health. 2001: NIH Publication No. 01-3305. 2. An International Atherosclerosis Society position paper: global recommendations for the management of dyslipidemia: executive summary, Atherosclerosis. 2014: 232(2):410-413. Blood BLOOD SPECIMEN / Unknown Venipuncture / Unknown 09/18/2021 8:07 AM EDT 09/18/2021 3:12 PM EDT us Aylin Garrison PA-C LABORATORY Final Result [facility] [address] [facility] [address] [place] [address], * HEP REMOTE PANEL BL (07/15/2020 11:23 AM EST) Hep B Core Ab, Total Negative Negative 07/15/2020 7:02 PM EST [facility] [employer] Hep C Antibody [place] Negative Negative 07/15/2020 7:03 PM EST [facility] HBsAg Negative Negative 07/15/2020 7:03 PM EST [facility] Hep B Surface Ab, Qual Negative Negative 07/15/2020 7:03 PM EST [facility] Comment:NEGATIVE Blood BLOOD SPECIMEN / Unknown 07/15/2020 11:23 AM EST 07/15/2020 11:25 AM EST Prosper Zheng MD, PhD LABORATORY Final Resu lt [facility] [address] [facility] [place] [address] [facility] [address] [place] [address] from Last 3 Months or Most Recently Relevant to Health Maintenance [place] [address] [place] [address] MEDICARE PPO Care Teams Briquette Operator Relationship Specialty Start Date End Date Valdez Acosta MD [address] [place] [address] PCP - General Internal Medicine 11/01/20 Malinda Lopez, VOCATIONAL REHABILITATION SPECIALIST.[facility] [address] [place] [address] Bee Breeder Family Medicine 04/26/24
--- OUTSIDE RECORDS SUMMARY | 2024-11-24 18:37 | XMS_ITS | Encounter Summary ---
Author Organization [facility] Address [facility] [place] [address] Care Team Providers Care Tea Blender Name Role Phone Kirk Wyatt Segundo Primary Care Provider Frances Hills (Rn) senior clerk Provider Valdez Bhandari MD Primary Care Provider [phone] Dian Smith PA-C Unavailable + [phone] Malinda Lopez APRN.SENIOR ACCOUNTANT ANALYST Unavailable + [phone] Source Comments In the event this information is protected by the Federal Confidentiality of Alcohol and Drug AbusePatient Records regulations: The Federal rules restrict any use of the information to criminally investigate or prosecute any alcohol or drug abuse patient.[facility] Encounter Details Date Type Department Care Team (Late st Contact Info) Description 06/26/2016 Patient Msg Medical Records [address] [place] [address] Provider, Ccf labs Social History Tobacco Use [...] documented as of this encounter Care Teams Tea Blender Relationship Specialty Start Date End Date Wyatt Bradley PCP - General Internal Medicine 05/21/12 12/05/17 Frances Hills (Rn), RN PCP - General 12/06/17 10/31/20 Valdez Acosta MD [address] [place] [address] PCP - General Internal Medicine 11/01/20 Dian Smith PA-C [address] [place], [place] [id number] Level Vial Curvature Gauger Internal Medicine 04/26/24 05/21/24 Malinda Lopez, COMMUNITY LIAISON.[facility] [address] [place] [address] [id number] Level Vial Curvature Gauger Family Medicine 04/26/24 documented as of this encounter
--- OUTSIDE RECORDS SUMMARY | 2024-11-24 18:37 | XMS_ITS | Encounter Summary ---
Author Organization [facility] Address [facility] [place] [address] Care Team Providers Care Internet Marketing Specialist Name Role Phone Kirk Wyatt Segundo Primary Care Provider Frances Hills (Rn) environmental monitoring specialist Provider Valdez Bhandari MD Primary Care Provider [phone] Dian Smith PA-C Unavailable + [phone] Malinda Lopez APRN.THUMB SEWER Unavailable + [phone] Source Comments In the event this information is protected by the Federal Confidentiality of Alcohol and Drug AbusePatient Records regulations: The Federal rules restrict any use of the information to criminally investigate or prosecute any alcohol or drug abuse patient.[facility] Encounter Details Date Type Department Care Team (Late st Contact Info) Description 03/03/2014 Patient Msg Medical Records [address] [place] [address] Provider, Ccf labs and office visit Social [...] documented as of this encounter Care Teams Internet Marketing Specialist Relationship Specialty Start Date End Date Wyatt Bradley PCP - General Internal Medicine 05/21/12 12/05/17 Frances Hills (Rn), RN PCP - General 12/06/17 10/31/20 Valdez Acosta MD [address] [place] [address] PCP - General Internal Medicine 11/01/20 Dian Smith PA-C [address] [place] [address] Financial Services Professional Internal Medicine 04/26/24 05/21/24 Malinda Lopez, ELECTION SUPERVISOR.THUMB SEWER [address] [place] [address] Financial Services Professional Family Medicine 04/26/24 documented as of this encounter
--- OUTSIDE RECORDS SUMMARY | 2024-11-24 18:37 | XMS_ITS | Encounter Summary ---
Author Organization [facility] Address [address] [place] [address] Care Team Providers Care Varnisher Name Role Phone Valdez Acosta MD Primary Care Provider [phone] Dian Smith PA-C Unavailable + [phone] Malinda Lopez APRN.PRODUCT STEWARD Unavailable + [phone] Source Comments In the event this information is protected by the Federal Confidentiality of Alcohol and Drug AbusePatient Records regulations: The Federal rules restrict any use of the information to criminally investigate or prosecute any alcohol or drug abuse patient.[facility] Encounter Details Date Type Department Care Team (Late st Contact Info) Description 11/08/2020 [facility] [address] [id number] Lanie Lombardi APRN.PRODUCT STEWARD [address] [address] RE: Test Result Question Social History Tobacco [...] How often do you attend congregational or gnosticism serv ices? Never 08/02/2020 Do you belong [...] Date Recorded PHQ-2 score 5 10/30/2020 [facility] of Occupat ional Health - Occupational [...] place to sleep or slept in a residential (including now)? No 08/02/2020 Area Deprivation Index Answer Date Chris rded National Score (1-100), lower number is lower ri sk Not on file 04/27/2020 State Score (1-10), lower number is lower risk N ot on file 04/27/2020 Data from: https://www.neighborhoodatlas.medicine.[facility].edu/. Last address used for calculation Not [...] on filedocumented in this encounter Care Teams Varnisher Relationship Specialty Start Date End Date Valdez Acosta MD [address] [place] [address] PCP - General Internal Medicine 11/01/20 Dian Smith PA-C [address] [place] [address] Ship[employer] Pilot Internal Medicine 04/26/24 05/21/24 Malinda Lopez APRN.PRODUCT STEWARD [address] [place] [address] [phone] [employer] Family Medicine 04/26/24 documented as of this encounter
--- OUTSIDE RECORDS SUMMARY | 2024-11-24 18:37 | XMS_ITS | Encounter Summary ---
Author Organization [facility] Address [address] [place] [address] Care Team Providers Care Hardener Helper Name Role Phone Frances Hills (Rn) flame gouger Provider Valdez Bhandari MD Primary Care Provider +- [phone] Dian Smith PA-C Unavailable + [phone] Malinda Lopez APRN.[facility] Unavailable + [phone] Source Comments In the event this information is protected by the Federal Confidentiality of Alcohol and Drug AbusePatient Records regulations: The Federal rules restrict any use of the information to criminally investigate or prosecute any alcohol or drug abuse patient.[facility] Encounter Details Date Type Department Care Team (Late st Contact Info) Description 07/29/2020 [facility] [address] [place] [address] Aylin Garrison PA-C [address] [place] [address] RE: Upcoming Appointment Question Social History Tobacco Use Types Packs/Day [...] Never 08/02/2020 How often do you attend gnosticist or jain serv ices? Never 08/02/2020 Do you belong to any clubs o r organizations such as gnosticist groups, unions, fraternal or athletic groups, or [...] Answer Date Recorded PHQ-2 score 3 08/02/2020 [facility] of Occupat ional Health - Occupational Stress [...] N ot on file 04/27/2020 Data from: https://www.neighborhoodatlas.medicine.[facility].edu/. Last address used for calculation Not [...] Date Author No 10/29/2014 10:13 AM EDT Terasure Broussard MA documented in this encounter Plan of Treatment Not on file documented as of this encounter Visit Diagnoses Not on filedocumented in this encounter Additional Health Concerns Infection Onset Date Last Indicated Resolved Time COVID-19 Rule-Out 08/06/2020 08/05/2020 08/26/2020 8:53 PM EDT documented as of this encounter Care Teams Hardener Helper Relationship Specialty Start Date End Date August (Rn), RN PCP - General 12/06/17 10/31/20 Valdez Acosta MD [address] [place] [address] PCP - General Internal Medicine 11/01/20 Dian Smith PA-C [address] [place] [address] Engine Lathe Tender Internal Medicine 04/26/24 05/21/24 Malinda Lopez APRN.MICROFILM EQUIPMENT INSPECTOR [address] [place] [address] Engine Lathe Tender Family Medicine 04/26/24 documented as of this encounter
--- OUTSIDE RECORDS SUMMARY | 2024-11-24 18:37 | XMS_ITS | Encounter Summary ---
Author Organization [facility] Address [address] [place] [address] Care Team Providers Care Welder Oxyhydrogen Name Role Phone Frances Hills (Rn) mottler machine feeder Provider Valdez Bhandari MD Primary Care Provider +- [phone] Dian Smith PA-C Unavailable + [phone] Malinda Lopez APRN.[facility] Unavailable + [phone] Source Comments In the event this information is protected by the Federal Confidentiality of Alcohol and Drug AbusePatient Records regulations: The Federal rules restrict any use of the information to criminally investigate or prosecute any alcohol or drug abuse patient.[facility] Encounter Details Date Type Department Care Team (Late st Contact Info) Description 09/08/2020 [facility] [address] [place] [address] Aylin Garrison PA-C [address] [place] [address] RE: Non-Urgent Medical Question Social History [...] Never 08/02/2020 How often do you attend zoroastrianism or scientologist serv ices? Never 08/02/2020 Do you belong to any clubs o r organizations such as zoroastrianism groups, unions, fraternal or athletic groups, or [...] Answer Date Recorded PHQ-2 score 3 08/02/2020 [facility] of Occupat ional Health - Occupational Stress [...] N ot on file 04/27/2020 Data from: https://www.neighborhoodatlas.medicine.[facility].edu/. Last address used for calculation Not on [...] on filedocumented in this encounter Care Teams Welder Oxyhydrogen Relationship Specialty Start Date End Date Reinier August (Rn), RN PCP - General 12/06/17 10/31/20 Valdez Acosta MD [address] [place] [address] PCP - General Internal Medicine 11/01/20 Dian Smith PA-C [facility]2 [place] [address] Surveillance Officer Internal Medicine 04/26/24 05/21/24 Malinda Lopez, AUTO OVERHAULER.PROTECTIVE SIGNAL REPAIRER HELPER [address] [place] [address] Surveillance Officer Family Medicine 04/26/24 documented as of this encounter
--- OUTSIDE RECORDS SUMMARY | 2024-11-24 18:37 | XMS_ITS | Encounter Summary ---
Author Organization [facility] Address [address] [place] [address] Care Team Providers Care Semiconductors Wafer Breaker Name Role Phone Frances Hills (Rn) crewman armoured personnel carrier m113 Provider Valdez Bhandari MD Primary Care Provider +- [phone] Dian Smith PA-C Unavailable + [phone] Malinda Lopez APRN.[facility] Unavailable + [phone] Source Comments In the event this information is protected by the Federal Confidentiality of Alcohol and Drug AbusePatient Records regulations: The Federal rules restrict any use of the information to criminally investigate or prosecute any alcohol or drug abuse patient.[facility] Encounter Details Date Type Department Care Team (Late st Contact Info) Description 09/15/2020 [facility] [address] [place] [address] Aylin Garrison PA-C [address] [place] [address] RE: Non-Urgent Medical Question Social History [...] How often do you attend samaritan or protestant serv ices? Never 08/02/2020 Do [...] Answer Date Recorded PHQ-2 score 3 08/02/2020 [facility] [place] of Occupat ional Health - Occupational Stress [...] on file 04/27/2020 Data from: https://www.neighborhoodatlas.medicine.[facility].edu/. Last address used for calculation [...] on filedocumented in this encounter Care Teams Semiconductors Wafer Breaker Relationship Specialty Start Date End Date Reinier August (Rn), RN PCP - General 12/06/17 10/31/20 Valdez Acosta MD [address] [place] [address] PCP - General Internal Medicine 11/01/20 Dian Smith PA-C [facility] [place] [address] Radiology Special Procedure Tech Internal Medicine 04/26/24 05/21/24 Malinda Lopez, ACCOUNTING POLICY CONSULTANT.STRUCTURAL FITTER [address] [place] [address] Radiology Special Procedure Tech Family Medicine 04/26/24 documented as of this encounter
--- OUTSIDE RECORDS SUMMARY | 2024-11-24 18:37 | XMS_ITS | Encounter Summary ---
Author Organization [facility] Address [address] [place] [address] Care Team Providers Care Weight Guesser Name Role Phone Valdez Acosta MD Primary Care Provider [phone] Dian Smith PA-C Unavailable + [phone] Malinda Lopez APRN.SDV PILOT/NAVIGATOR/DDS OPERATOR Unavailable + [phone] Source Comments In the event this information is protected by the Federal Confidentiality of Alcohol and Drug AbusePatient Records regulations: The Federal rules restrict any use of the information to criminally investigate or prosecute any alcohol or drug abuse patient.[facility] Encounter Details Date Type Department Care Team (Late st Contact Info) Description 03/15/2021 Patient [facility] [address] [place] [phone] Provider, Ccf Please call to reschedule Follow [...] often do you attend oriental orthodox or rastafarian serv ices? Never 08/02/2020 Do you belong [...] Answer Date Recorded PHQ-2 score 5 10/30/2020 [facility] - Occupational Stress Questionnaire Answer [...] place to sleep or slept in a longterm (including now)? No 08/02/2020 Area Deprivation Index Answer Date Chris rded National Score (1-100), lower number is lower ri sk Not on file 04/27/2020 State Score (1-10), lower number is lower risk N ot on file 04/27/2020 Data from: https://www.neighborhoodatlas.medicine.[facility].edu/. Last address used for calculation Not [...] on filedocumented in this encounter Care Teams Weight Guesser Relationship Specialty Start Date End Date Valdez Acosta MD [address] [place] [address] PCP - General Internal Medicine 11/01/20 Dian Smith PA-C [facility] [place] [address] Decorating And Assembly Supervisor Internal Medicine 04/26/24 05/21/24 Malinda Lopez APRN.SDV PILOT/NAVIGATOR/DDS OPERATOR [address] [place] [address] Decorating And Assembly Supervisor Family Medicine 04/26/24 documented as of this encounter
--- OUTSIDE RECORDS SUMMARY | 2024-11-24 18:37 | XMS_ITS | Encounter Summary ---
Author Organization [facility] Address [facility] [place] [address] Care Team Providers Care Automatic Clipper And Stripper Name Role Phone Kirk Wyatt Segundo Primary Care Provider Frances Hills (Rn) gas meter repair supervisor Provider Valdez Bhandari MD Primary Care Provider [phone] Dian Smith PA-C Unavailable + [phone] Malinda Lopez APRN.MINER ASSISTANT Unavailable + [phone] Source Comments In the event this information is protected by the Federal Confidentiality of Alcohol and Drug AbusePatient Records regulations: The Federal rules restrict any use of the information to criminally investigate or prosecute any alcohol or drug abuse patient.[facility] Encounter Details Date Type Department Care Team (Late st Contact Info) Description 09/14/2015 Patient Msg Medical Records [address] [place] [address] Provider, Ccf labs Social History Tobacco Use [...] documented as of this encounter Care Teams Automatic Clipper And Stripper Relationship Specialty Start Date End Date Wyatt Bradley PCP - General Internal Medicine 05/21/12 12/05/17 Frances Hills (Rn), RN PCP - General 12/06/17 10/31/20 Valdez Acosta MD [address] [facility] [address] PCP - General Internal Medicine 11/01/20 Dian Smith PA-C [address] [place], [place] [phone] Monogram Operator Internal Medicine 04/26/24 05/21/24 Malinda Lopez, CONTINUITY WRITER.[facility] [address] [place] [address] [phone] Monogram Operator Family Medicine 04/26/24 documented as of this encounter
--- OUTSIDE RECORDS SUMMARY | 2024-11-24 18:37 | XMS_ITS | Encounter Summary ---
Author Organization [facility] Address [facility] [place] [address] Care Team Providers Care Vendor Analyst Name Role Phone Kirk Wyatt Segundo Primary Care Provider Frances Hills (Rn) radiology transcriptionist Provider Valdez Bhandari MD Primary Care Provider [phone] Dian Smith PA-C Unavailable + [phone] Malinda Lopez APRN.TECHNOLOGY COORDINATOR Unavailable + [phone] Source Comments In the event this information is protected by the Federal Confidentiality of Alcohol and Drug AbusePatient Records regulations: The Federal rules restrict any use of the information to criminally investigate or prosecute any alcohol or drug abuse patient.[facility] Encounter Details Date Type Department Care Team (Late st Contact Info) Description 05/27/2014 Patient Msg Medical Records [address] [place] [address] Provider, Ccf Research Invitation Social History Tobacco [...] documented as of this encounter Care Teams Vendor Analyst Relationship Specialty Start Date End Date Wyatt Bradley PCP - General Internal Medicine 05/21/12 12/05/17 Frances Hills (Rn), RN PCP - General 12/06/17 10/31/20 Valdez Acosta MD [address] [place] [address] PCP - General Internal Medicine 11/01/20 Dian Smith PA-C [address] [place] [address] Senior Scrum Master Internal Medicine 04/26/24 05/21/24 Malinda Lopez, AUTO DAMAGE INSURANCE APPRAISER.TECHNOLOGY COORDINATOR [address] [place] [address] Senior Scrum Master Family Medicine 04/26/24 documented as of this encounter
--- OUTSIDE RECORDS SUMMARY | 2024-11-24 18:37 | XMS_ITS | Encounter Summary ---
Author Organization [facility] Address [address] [place] [address] Care Team Providers Care Management Rep Name Role Phone Valdez Acosta MD Primary Care Provider +- [phone] Dian Smith PA-C Unavailable + [phone] Malinda Lopez APRN.CRUSHER TENDER Unavailable + [phone] Source Comments In the event this information is protected by the Federal Confidentiality of Alcohol and Drug AbusePatient Records regulations: The Federal rules restrict any use of the information to criminally investigate or prosecute any alcohol or drug abuse patient.[facility] Encounter Details Date Type Department Care Team (Late st Contact Info) Description 11/12/2021 [place] [address] Provider, Ccf Questionnaire Submission Social History Tobacco [...] Never 08/02/2020 How often do you attend taoist or mandaeism serv ices? Never 08/02/2020 Do you belong to any clubs o r organizations such as taoist groups, unions, fraternal or athletic groups, or [...] Answer Date Recorded PHQ-2 score 5 09/15/2021 [facility] of Occupat ional Health - Occupational [...] N ot on file 11/14/2021 Data from: https://www.neighborhoodatlas.medicine.[facility].edu/. Last address used for calculation 22[address] [...] filedocumented in this encounter Care Teams Management Rep Relationship Specialty Start Date End Date Valdez Acosta MD [address] [place] [address] PCP - General Internal Medicine 11/01/20 Dian Smith PA-C [address] [place] [address] Seo Expert Internal Medicine 04/26/24 05/21/24 Malinda Lopez APRN.CRUSHER TENDER [address] [place] [address] Seo Expert Family Medicine 04/26/24 documented as of this encounter
--- OUTSIDE RECORDS SUMMARY | 2024-11-24 18:38 | XMS_ITS | Encounter Summary ---
Author Organization [facility] Address [facility] [place] [address] Care Team Providers Care Police Crime Scene Technician Name Role Phone Valdez Acosta MD Primary Care Provider +- [phone] Dian Smith PA-C Unavailable + [phone] Malinda Lopez APRN.DIRECTOR BEHAVIORAL HEALTH Unavailable + [phone] Source Comments In the event this information is protected by the Federal Confidentiality of Alcohol and Drug AbusePatient Records regulations: The Federal rules restrict any use of the information to criminally investigate or prosecute any alcohol or drug abuse patient.[facility] Encounter Details Date Type Department Care Team (Late st Contact Info) Description 05/03/2023 Patient Msg Neurology [address] [place] [phone] Provider, Ccf New Year Insurance Verification Social [...] Never 08/02/2020 How often do you attend presybeterian or anabaptist serv ices? Never 08/02/2020 Do you belong to any clubs o r organizations such as presybeterian groups, unions, fraternal [...] Answer Date Recorded PHQ-2 score 1 05/01/2023 [facility] - Occupational Stress Questionnaire Answer Date [...] is lower risk 4 09/20/2022 Data from: https://www.neighborhoodatlas.medicine.[facility].edu/. Last address used for calculation [address] [...] on filedocumented in this encounter Care Teams Police Crime Scene Technician Relationship Specialty Start Date End Date Valdez Acosta MD [address] [place] [address] PCP - General Internal Medicine 11/01/20 Dian Smith PA-C [facility] [place] [address] Nurse Supervisor Internal Medicine 04/26/24 05/21/24 Malinda Lopez APRN.DIRECTOR BEHAVIORAL HEALTH [address] [place] [address] Nurse Supervisor Family Medicine 04/26/24 documented as of this encounter
--- OUTSIDE RECORDS SUMMARY | 2024-11-24 18:38 | XMS_ITS | Encounter Summary ---
Author Organization [facility] Address [address] [place] [address] Care Team Providers Care Education Department Registrar Name Role Phone Valdez Acosta MD Primary Care Provider + [phone] Dian Smith PA-C Unavailable + [phone] Malinda Lopez APRN.GENERAL DUTY NURSE Unavailable + [phone] Source Comments In the event this information is protected by the Federal Confidentiality of Alcohol and Drug AbusePatient Records regulations: The Federal rules restrict any use of the information to criminally investigate or prosecute any alcohol or drug abuse patient.[facility] Encounter Details Date Type Department Care Team (Late st Contact Info) Description 11/26/2023 Patient Msg Radiology [address] [place] [address] Provider, Ccf MRI Questionnaire Social [...] How often do you attend yazdanism or rastafari serv ices? Never 08/02/2020 Do [...] Answer Date Recorded PHQ-2 score 5 09/05/2023 [facility] of Occupat ional [facility] - Occupational Stress Questionnaire Answer Date Recorded [...] is lower risk 4 09/20/2022 Data from: https://www.neighborhoodatlas.medicine.[facility].edu/. Last address used for calculation 22[address] [...] on filedocumented in this encounter Care Teams Education Department Registrar Relationship Specialty Start Date End Date Valdez Acosta MD [address] [place] [address] PCP - General Internal Medicine 11/01/20 Dian Smith PA-C [address] [place] [address] [facility] Internal Medicine 04/26/24 05/21/24 Malinda Lopez APRN.GENERAL DUTY NURSE [address] [place] [phone] Aircraft Technician Family Medicine 04/26/24 documented as of this encounter
--- OUTSIDE RECORDS SUMMARY | 2024-11-24 18:38 | XMS_ITS | Encounter Summary ---
Author Organization [facility] Address [address] [place] [address] Care Team Providers Care Zoning Administrator Name Role Phone Valdez Acosta MD Primary Care Provider [phone] Dian Smith PA-C Unavailable + [phone] Malinda Lopez APRN.[facility] Unavailable + [phone] Source Comments In the event this information is protected by the Federal Confidentiality of Alcohol and Drug AbusePatient Records regulations: The Federal rules restrict any use of the information to criminally investigate or prosecute any alcohol or drug abuse patient.[facility] Encounter Details Date Type Department Care Team (Late st Contact Info) Description 06/10/2023 [facility] [address] [place], [place] [phone] Aylin Garrison PA-C [address] [place] [address] Bulging disc Social History Tobacco Use [...] How often do you attend christian or zoroastrian serv ices? Never 08/02/2020 Do you belong [...] Answer Date Recorded PHQ-2 score 1 05/01/2023 [facility] of Occupat ional Health - [...] is lower risk 4 09/20/2022 Data from: https://www.neighborhoodatlas.medicine.[facility].edu/. Last address used for calculation 22[address] [...] RN - 06/10/2023 2:26 PM EST Called [facility] at [phone], spoke with kiosk sales representative who is pushing over MRI Cervical Spine Images from 05-09-2023 to [facility] via [employer]. Routing to Aylin Garrison PA-C. Gabriel Victoria RN documented in this encounter Plan of Treatment Not on file documented as of this encounter Visit Diagnoses Not on filedocumented in this encounter Care Teams Zoning Administrator Relationship Specialty Start Date End Date Valdez Acosta MD [address] [place] [address] PCP - General Internal Medicine 11/01/20 Dian Smith PA-C [address] [place] [address] [phone] Roving Carrier Internal Medicine 04/26/24 05/21/24 Malinda Lopez, PARTS MANAGER.CORRECTIONAL PROBATION OFFICER [address] [place] [address] [phone] Roving Carrier Family Medicine 04/26/24 documented as of this encounter
--- OUTSIDE RECORDS SUMMARY | 2024-11-24 18:38 | XMS_ITS | Clinical Summary ---
Author Organization [facility] Address [address] [place] [address] Care Team Providers Care Hide And Skin Classer Name Role Phone HarveyberenicejesicaKristin beltran HOUSE WRECKER Unavailable [phone] Maxim Lanza MD Primary Care Provider [phone] Allergies No known active allergies Medications ocrelizumab [...] (anxiety) 90 tablet 5 Active nystatin (Mycostatin) 197912 UNIT/GM powderIndication s:Yeast dermatitis Apply topically 2 [...] in 6 weeks Encounter for subsequent [facility] wellness visit (AWV) in Medicare patient 05/18/2024 [...] Encounters Date Type Department Care Team Description 11/07/2024 Clinisync Result Encounter [facility] External Department Unsolicited Rio Ennis MD 11/05/2024 Patient Outreach [facility] [place] [address] [place] [address] Blank Rodriguez, CREDIT INTERVIEWER 10/28/2024 Patient Outreach [facility] [place] [address] [place] [address] Dian Guerin MA 10/23/2024 Patient Outreach [facility] [place] [address] [place] [address] Blank Rodriguez, CREDIT INTERVIEWER 10/22/2024 Patient Outreach [address] [place] [place] [address] Blank Rodriguez, CREDIT INTERVIEWER 10/20/2024 Abstract [facility] [address] [place] [address] Kristin Gracia NP 10/20/2024 Orders Only [facility] [address] [place] [address] Kristin Gracia NP 10/17/2024 Clinisync Result Encounter [facility] External Department Unsolicited Provider, Generic External Data 10/14/2024 Patient Outreach [place] [address] [place] [address] Blank Rodriguez, CREDIT INTERVIEWER 10/08/2024 Abstract [facility] [address] [place] [address] Maxim Lanza MD 10/07/2024 Patient Outreach [place] [address] [place] [address] Blank Rodriguez, CREDIT INTERVIEWER 09/30/2024 Patient Outreach [address] [place] [address] Blank Rodriguez, CREDIT INTERVIEWER 09/21/2024 Patient Outreach [address] [place] [address] Blank Rodriguez, CREDIT INTERVIEWER 09/21/2024 Patient Outreach [address] [place] [address] Blank Rodriguez, CREDIT INTERVIEWER 09/18/2024 Clinisync Result Encounter NOMS External Department Unsolicited Rio Ennis MD 09/16/2024 Patient Outreach [address] [place] [address] Blank Rodriguez, CREDIT INTERVIEWER 09/15/2024 Abstract [facility] [address] [place] [address] Unallocated, [facility] MD Phill 09/09/2024 Patient Outreach [address] [place] [address] Blank Rodriguez, CREDIT INTERVIEWER 09/02/2024 Patient Outreach [address] [place] [address] Remy Rodriguezia, CREDIT INTERVIEWER from Last 3 Months Immunizations Immunization Administration [...] How often do you attend chur or bahai services? 1 to 4 times per year 06/04/2023 Do you belong to any clubs o r organizations such as baptism groups, unions, fraternal or athletic groups, or [...] slept in a custodial (including now)? No 06/04/2023 Comments Unknown Sex [...] 1970 FOBT 1970 Sigmoidoscopy 1968 HPV/Cotest 1998 Influenza Vaccine (#1) 2025 , 05/02/2023, 04/30/2023, Additional history exists Cervical Cancer Screening 03/07/2025 Pap Smear 03/07/2025 03/07/2022 Medicare Annual Wellness (AWV) 05/18/2025 05/18/2024 , 04/30/2023 Mammogram 06/30/2025 06/30/2024, 09/17/2012 Colonoscopy 09/22/2027 Colorectal Cancer Screening 09/22/2027 Procedures Procedure Name Priority Date/Time Associated Diagnosis Comments ALL BASIC METABOLIC PANEL Routine 11/07/2024 10:09 AM EDT COMPLETE ECHOCARDIOGRAM DOBUTAMINE STRESS TEST Routine 10/20/2024 8:01 AM EDT URINE CULTURE - [facility] Routine 10/17/2024 9:45 AM EDT BLOOD CULTURE 2 Routine 10/17/2024 2:55 AM EDT BLOOD CULTURE 1 Routine 10/17/2024 2:47 AM EDT BLOOD CULTURE 2 Routine 09/18/2024 6:10 PM EDT BLOOD CULTURE 1 Routine 09/18/2024 5:55 PM EDT ALL BASIC METABOLIC PANEL Routine 09/18/2024 2:05 PM EDT ALL CBC WITH AUTO DIFF Routine 2:05 PM EDT MM TOMOSYNTHESIS SCREENING BI 06/30/2024 11:32 AM EST from Last 3 Months or Most Recently Relevant to Health Maintenance Results * (ABNORMAL) ALL BASIC METABOLIC PANEL (11/07/2024 10:09 AM EDT) Only the most recent of2 resultswithin the time period is included. SODIUM 149(H) 136 - 145 mmol/L [facility] POTASSIUM 3.7 3.5 - 5.1 mmol/L [facility] CHLORIDE 108(H) 98 - 107 mmol/L [facility] CARBON DIOXIDE 32.8(H) 21.0 - 32.0 mmol/L [facility] ANION GAP 11.9 [facility] GLUCOSE 99 74 - 106 mg/dL [facility] BLOOD UREA NITROGEN 36.0(H) 7.0 - 18.0 mg/dL [facility] CREATININE 3.05(H) 0.55 - 1.02 mg/dL [facility] TB[facility] EGFR-AF CITIZEN [place] 19(L) >=60 mL/min/1.7 3m 2 TBH TBH EGFR-NON AF CITIZEN [place] 16(L) >=60 mL/min/1.7 3m 2 [facility] BUN CREATININE RATIO 11.8 [facility] CALCIUM 8.5 8.5 - 10.1 mg/dL [facility] 11/07/2024 10:0 9 AM EDT 11/07/2024 11:05 AM EDT Narrative [facility] - 11/07/2024 11:27 AM EDT us Rio Ennis MD [facility] Final Result [facility] * Complete echocardiogram dobutamine stress test (10/20/2024 8:01 AM EDT) Anatomical Region Laterality Modality Ultrasound us Kristin Gracia NP CV ECHO PROCEDURES Final Result * (ABNORMAL) URINE CULTURE - FR (10/17/2024 9:45 AM EDT) [facility] URINE CULTURE - [facility] Urine Culture - FR Testing performed at [facility] URINE CULTURE - [facility] [address] [place] [address] [facility] URINE CULTURE - FR O:PROMIR Isolated [facility] URINE CULTURE - [facility] Urine Culture - FR [place] [facility] URINE CULTURE - FR >100,000 CFU/ml [facility] URINE CULTURE - [facility] Organism: 1.1 Antibiotic Interpretation ROSE Status TB URINE CULTURE - FR Amikacin S F(S) TB URINE CULTURE - [facility] Amoxicillin/Clavul anate S F(S) TB URINE CULTURE - [facility] Ampicillin S F(S) TB URINE CULTURE - [facility] Aztreonam S F(S) TB URINE CULTURE - [facility] Ceftazidime S F(S) TB URINE CULTURE - [facility] Ceftazidime/Avibac egan S F(S) TB URINE CULTURE - [facility] Ceftolozane/Tazoba ctam S F(S) TB URINE CULTURE - [facility] Ciprofloxacin S F(S) TB URINE CULTURE - [facility] Ertapenem S F(S) [facility] URINE CULTURE - [facility] Gentamicin S F(S) TB URINE CULTURE - [facility] Levofloxacin S F(S) TB URINE CULTURE - [facility] Meropenem S F(S) [facility] URINE CULTURE - [facility] Meropenem/Vaborbac egan S F(S) TB URINE CULTURE - [facility] Tobramycin S F(S) TB URINE CULTURE - [facility] Ampicillin/Sulbact am S F(S) TB URINE CULTURE - [facility] Cefazolin S F(S) [facility] URINE CULTURE - [facility] Cefepime S F(S) [facility] URINE CULTURE - [facility] Ceftriaxone S F(S) TB URINE CULTURE - [facility] Cefuroxime S F(S) TB URINE CULTURE - [facility] Piperacillin/Tazob actam S F(S) TB URINE CULTURE - [facility] Trimethoprim/Sulfa S F(S) [facility] 10/17/2024 9:45 AM EDT 10/17/2024 9:56 AM EDT [facility] - 10/19/2024 10:55 AM EDT Generic External Data Provider LAB BLOOD ORDERAB LES Final Result Performing Organization Address [facility] de Phone Number [facility] * BLOOD CULTURE 2 (10/17/2024 2:55 AM EDT) Only the most recent of2 resultswithin the time period is included. Pathologist [facility] BLOOD CULTURE 2 Blood Culture 2 NG5D NO GROWTH AT 5 DAYS.^NO GROWTH AT 5 DAYS. [facility] 10/17/2024 2:55 AM EDT 10/17/2024 3:10 AM EDT [facility] - 10/22/2024 2:43 PM EDT Generic External Data Provider LAB BLOOD ORDERAB LES Final Result Performing Organization Address [facility] de Phone Number [facility] * BLOOD CULTURE 1 (10/17/2024 2:47 AM EDT) Only the most recent of2 resultswithin the time period is included. BLOOD CULTURE 1 Blood Culture 1 NG5D NO GROWTH AT 5 DAYS.^NO GROWTH AT 5 DAYS. [facility] 10/17/2024 2:47 AM EDT 10/17/2024 3:10 AM EDT [facility] - 10/22/2024 2:43 PM EDT Generic External Data Provider LAB BLOOD ORDERAB LES Final Result Performing Organization Address [facility] de Phone Number [facility] * (ABNORMAL) ALL CBC WITH AUTO DIFF (09/18/2024 2:05 PM EDT) [facility] WBC 12.9(H) 4.0 - 11.0 10 3/uL [...] Narrative [facility] - 09/18/2024 3:22 PM EDT us Rio Ennis MD CLINISYNC Final Result [facility] TB * MM TOMOSYNTHESIS SCREENING BI (06/30/2024 11:32 AM EST) Anatomical Region Laterality Modality Other 06/30/2024 11:3 2 AM EST Narrative 06/30/2024 11:33 [place] [address] Mammography Report Signed Patient: NITHYA VASQUEZ MR#: [id number] : 1970 Acct:[id number] Age/Sex: 54 / F ADM Date: 06/30/24 Loc: MAMMO Attending Dr: Kristin Gracia NP Ordering Physician: Kristin Gracia NP Results: Date of Service: 06/30/24 Follow Up: Procedure(s): MM tomosynthesis screening BI Accession Number(s): [id number] cc: Kristin Gracia NP Patient Name: NITHYA VASQUEZ MR#: [id number] : 1970 Exam Date: 06/30/2024 Ordering Doctor: [...] throat/lung cancer at age 56. LOCATION: [facility] BREAST COMPOSITION: There are scattered areas [...] Kenny M.D. Signed By: 06/30/24 1133 DD/ 31 TD/TT: Hot Tar Roofer Helper: Procedure Note Radiology, Radiologist, - 06/30/2024 [facility] [place] [id number] Mammography Report Signed Patient: NITHYA VASQUEZ FMR#: [id number] : 1970Acct:[id number] Age/Sex: 54 / FADM Date: 06/30/24 Loc: MAMMO Attending Dr: Kristin Gracia HOUSE WRECKER Ordering Physician: Kristin Gracia NPResults: Date of Service: 06/30/24Follow Up: Procedure(s): MM tomosynthesis screening BI Accession Number(s): [id number] cc: Kristin Gracia NP Patient Name: NITHYA VASQUEZ MR#: [id number] : 1970 Exam Date: 06/30/2024 Ordering Doctor: RUBINA Gracia HIDES AND SKINS COLORER RADIOLOGY REPORT PROCEDURE: MM TOMOSYNTHESIS SCREENING BI COMPARISON: None. INDICATIONS: Screening Calculator Name NCI Breast Cancer Risk Assessment Tool 5 Year Breast Cancer Risk 2.40% Lifetime Breast Cancer Risk 14.80% Personal Breast Cancer No Personal Ovarian Cancer No Treatments None Family Cancers Sister with breast cancer at age 63; Father with throat/lung cancer at age 58. LOCATION: [facility] BREAST COMPOSITION: There are scattered areas [...] Rivera Kenny M.D. Signed By:06/30/24 1133 DD/ 31 TD/TT: Hot Tar Roofer Helper: us Kristin Gracia NP [facility] IMAGING Final Result from Last 3 Months or Most Recently Relevant to Health Maintenance Insurance AARP MEDICARE COMPLETE Care Teams Hide And Skin Classer Relationship Specialty Start Date End Date Maxim Lanza MD [address] [place] [address] PCP - General Family Medicine 07/15/23 Kristin Gracia NP [address] [place] [address] Primary Care Provider Family Medicine 05/20/22
--- OUTSIDE RECORDS SUMMARY | 2024-11-24 18:38 | XMS_ITS | Encounter Summary ---
Author Organization [facility] Address [address] [place] [address] Care Team Providers Care Vertical Punch Operator Name Role Phone Kristin Gracia RIVET HE[employer]AS Unavailable [phone] Maxim Lanza MD Primary Care Provider [phone] Encounter Details Date Type Department Care Team (Late st Contact Info) Description 10/20/2024 Orders Only [facility] [address] [place] [address] Kristin Gracia, [employer] [address] [place] [id number] Social History Tobacco Use Types Packs/Day Years [...] How often do you attend chur or yazdanism services? 1 to 4 times per year 06/04/2023 Do you belong to any clubs o r organizations such as restorationist groups, unions, fraternal or athletic groups, or [...] Recorded Patient Health Questionnaire-2 Score 6 05/18/2024 [facility] - Occupational [...] documented as of this encounter Care Teams Vertical Punch Operator Relationship Specialty Start Date End Date Maxim Lanza MD [address] [place] [address] PCP - General Family Medicine 07/15/23 Kristin Gracia NP [address] [place] [address] Primary Care Provider Family Medicine 05/20/22 documented as of this encounter
--- OUTSIDE RECORDS SUMMARY | 2024-11-24 18:38 | XMS_ITS | Encounter Summary ---
Author Organization [facility] Address [address] [place] [address] Care Team Providers Care Board Saw Runner Name Role Phone HarveyKristin yu HOUSE FELLOW Unavailable [phone] Maxim Lanza MD Primary Care Provider [phone] Encounter Details Date Type Department Care Team (Late st Contact Info) Description 09/15/2024 Abstract [facility] [address] [place] [address] Unallocated, [facility] Provider, [address] [facility] [place], [place] [id number] Social History Tobacco Use Types Packs/Day Years [...] week 06/04/2023 How often do you attend [facility] or orthodox services? 1 to 4 times per year [...] Recorded Patient Health Questionnaire-2 Score 6 05/18/2024 [facility] - Occupational [...] place to sleep or slept in a mcc (including now)? No 06/04/2023 Comments Unknown Sex [...] documented as of this encounter Care Teams Board Saw Runner Relationship Specialty Start Date End Date Maxim Lanza MD [address] [place] [address] PCP - General Family Medicine 07/15/23 Kristin Gracia NP [address] [place] [address] Primary Care Provider Family Medicine 05/20/22 documented as of this encounter
--- OUTSIDE RECORDS SUMMARY | 2024-11-24 18:38 | XMS_ITS | Encounter Summary ---
Author Organization [facility] Address [address] [place] [address] Care Team Providers Care Epic Trainer Name Role Phone Valdez Acosta MD Primary Care Provider [phone] Dian Smith PA-C Unavailable [phone] Malinda Lopez APRN.[facility] Unavailable [phone] Source Comments In the event this information is protected by the Federal Confidentiality of Alcohol and Drug AbusePatient Records regulations: The Federal rules restrict any use of the information to criminally investigate or prosecute any alcohol or drug abuse patient.[facility] Encounter Details Date Type Department Care Team (Late st Contact Info) Description 10/30/2023 [facility] [address] [place], [place] [id number] Aylin Garrison PA-C [address] [place] [address] MRI @ Upcoming appt. 12/10/23 Social [...] How often do you attend hinduism or nondenominational serv ices? Never 08/02/2020 Do [...] Answer Date Recorded PHQ-2 score 5 09/05/2023 [facility] - Occupational [...] is lower risk 4 09/20/2022 Data from: https://www.neighborhoodatlas.medicine.[facility].edu/. Last address used for calculation [address] [...] on filedocumented in this encounter Care Teams Epic Trainer Relationship Specialty Start Date End Date Valdez Acosta MD [address] [place] [address] PCP - General Internal Medicine 11/01/20 Dian Smith PA-C [address] [place] [address] Art History Professor Internal Medicine 04/26/24 05/21/24 Malinda Lopez APRN.CURATORIAL ASSISTANT [address] [place] [address] Art History Professor Family Medicine 04/26/24 documented as of this encounter
--- OUTSIDE RECORDS SUMMARY | 2024-11-24 18:38 | XMS_ITS | Patient Health Record ---
Author Organization [facility] in [place] Address [address] [place] [address] Care Team Providers Care Geospatial Engineer Name Role Phone HarveybereniceKristin perry CNP Primary Care Provider Unavail able Allergies No Known Allergies Results Component Value Reference Range Notes CBC AUTO DIFF Reviewed date:10/18/2024 04:24:42 PM Interpretation: Performing Lab: Notes/Report: [facility] , White Blood Count 6.6 4.0-11.0 [...] 04:24:42 PM Interpretation: Performing Lab: Notes/Report: [facility] , Influenza Virus A Antigen Negative [...] 04:24:42 PM Interpretation: Performing Lab: Notes/Report: [facility] , Lactate/Lactic Acid 3.1 0.4-2.0 mmol/L RESULT S CALLED TO ALIZA TOWNSEND RN Performing Lab: see note ML - [facility] LB MAGNESIUM Reviewed date:10/18/2024 04:24:42 PM Interpretation: Performing Lab: Notes/Report: [facility] , Magnesium 2.0 1.8-2.4 mg/dL Performing Lab: see note ML - [facility] LB RSV Reviewed date:10/18/2024 04:24:42 PM Interpretation: Performing Lab: Notes/Report: [facility] , Respiratory Syncytial Virus Not Detected NOT DETECTE Performing Lab: see note ML - [facility] LB T4 Reviewed date:10/18/2024 04:24:42 PM Interpretation: Performing Lab: Notes/Report: [facility] , T4 Thyroxine 6.60 4.80-13.90 ug/dL Performing Lab: see note ML - [facility] LB TSH Reviewed date:10/18/2024 04:24:42 PM Interpretation: Performing Lab: Notes/Report: [facility] , Thyroid Stimulating Hormone 1.513 0.358-3.740 uIU/mL Performing Lab: see note ML - [facility] LB UA RANDOM W or MICROSCOPIC Reviewed date:10/18/2024 04:24:42 PM Interpretation: Performing Lab: Notes/Report: [facility] , Color Urine LT. YELLOW YELLOW Clarity Urine SLIGHTLY CLOUDY CLEAR Specific [place] Urine <=1.005 1.005-1.025 pH Urine 7.0 5.0-9.0 [...] Performing Lab: see note ML - [facility] LB Troponin I High Sensitivity Reviewed date:10/18/2024 04:24:42 PM Interpretation: Performing Lab: Notes/Report: [facility] , Troponin I High Sensitivity 29.4 4.0-51.3 pg/mL PERCENTILE OF cTnI DISTRIBUTION IN A REFERENCE POPULATION, 99TH PERCENTILE = 51.4 PG/ML CUT-OFF POINTS HAVE BEEN ESTABLISHED BASED ON THE FOURTH USED IN ISOLATION BUT SHOULD BE INTERPRETED IN CONJUNCTION WITH OTHER DIAGNOSTIC AND CLINICAL INFORMATION. NOTE: HIGH-SENSITIVITY TROPONIN ASSAY IS NOT INTENDED TO BE HAS BEEN CONFIRMED THE DECISION THRESHOLD FOR ID UNIVERSAL DEFINITION OF MYOCARDIAL INFARCTION. THE UPPER DIAGNOSIS. REFERENCE LIMIT (URL) OF TROPONIN, DEFINED THE 99TH Performing Lab: see note ML - [facility] LB SARS-CoV-2 Ag* Reviewed date:10/18/2024 04:24:42 PM Interpretation: Performing Lab: Notes/Report: [facility] , SARS-CoV-2 Ag NEGATIVE NEGATIVE authorized [...] other Performing Lab: see note ML - [facility] Urine Culture - [facility] Reviewed date:10/19/2024 09:03:55 PM Interpretation: Performing Lab: Notes/Report: [facility] , Urine Culture - [facility] See Below For Report Testing performed at [facility] Isolated Antibiotic Interpretation ROSE Status Weinert Count Organism: 1.1 Urine Culture - FR O:PROMIR Urine Culture - [facility] Urine Culture - FR [address], [place] [address] Testing performed at [facility] Isolated Antibiotic Interpretation ROSE Status Weinert Count Organism: 1.1 Urine Culture - FR O:PROMIR Urine Culture - [facility] Urine Culture - [facility] See Below For Report Testing performed at [facility] Isolated Antibiotic Interpretation ROSE Status Weinert Count Organism: 1.1 Urine Culture - FR O:PROMIR Urine Culture - [facility] Urine Culture - [facility] See Below For Report Testing performed at [facility] Isolated Antibiotic Interpretation ROSE Status Weinert Count Organism: 1.1 Urine Culture - FR O:PROMIR Urine Culture - [facility] Urine Culture - [facility] >100,000 Testing performed at [facility] Isolated Antibiotic Interpretation ROSE Status Weinert Count Organism: 1.1 Urine Culture - FR O:PROMIR Urine Culture - FR Urine Culture - FR See Below For Report Testing performed at [facility] Isolated Antibiotic Interpretation ROES Status Weinert Count Organism: 1.1 Urine Culture - FR O:PROMIR Urine Culture - [facility] Urine Culture - FR Amikacin S F Testing performed at [facility] Isolated Antibiotic Interpretation ROSE Status Weinert Count Organism: 1.1 Urine Culture - FR O:PROMIR Urine Culture - [facility] Urine Culture - FR Amoxicillin/Clavula cherri S F Testing performed at [facility] Isolated Antibiotic Interpretation ROSE Status Weinert Count Organism: 1.1 Urine Culture - [facility] O:PROMIR Urine Culture - [facility] Urine Culture - [facility] Ampicillin S F Testing performed at [facility] Isolated Antibiotic Interpretation ROSE Status Weinert Count Organism: 1.1 Urine Culture - [facility] O:PROMIR Urine Culture - [facility] Urine Culture - [facility] Aztreonam S F Testing performed at [facility] Isolated Antibiotic Interpretation ROSE Status Weinert Count Organism: 1.1 Urine Culture - [facility] O:PROMIR Urine Culture - [facility] Urine Culture - [facility] Ceftazidime S F Testing performed at [facility] Isolated Antibiotic Interpretation ROSE Status Weinert Count Organism: 1.1 Urine Culture - [facility] O:PROMIR Urine Culture - [facility] Urine Culture - [facility] Ceftazidime/Avibactam S F Testing performed at [facility] Isolated Antibiotic Interpretation ROSE Status Weinert Count Organism: 1.1 Urine Culture - [facility] O:PROMIR Urine Culture - [facility] Urine Culture - [facility] Ceftolozane/Tazobac egan S F Testing performed at [facility] Isolated Antibiotic Interpretation ROSE Status Weinert Count Organism: 1.1 Urine Culture - [facility] O:PROMIR Urine Culture - [facility] Urine Culture - [facility] Ciprofloxacin S F Testing performed at [facility] Isolated Antibiotic Interpretation ROSE Status Weinert Count Organism: 1.1 Urine Culture - [facility] O:PROMIR Urine Culture - [facility] Urine Culture - [facility] Ertapenem S F Testing performed at [facility] Isolated Antibiotic Interpretation ROSE Status Weinert Count Organism: 1.1 Urine Culture - [facility] O:PROMIR Urine Culture - [facility] Urine Culture - [facility] Gentamicin S F Testing performed at [facility] Isolated Antibiotic Interpretation ROSE Status Weinert Count Organism: 1.1 Urine Culture - [facility] O:PROMIR Urine Culture - [facility] Urine Culture - [facility] Levofloxacin S F Testing performed at [facility] Isolated Antibiotic Interpretation ROSE Status Weinert Count Organism: 1.1 Urine Culture - [facility] O:PROMIR Urine Culture - [facility] Urine Culture - [facility] Meropenem S F Testing performed at [facility] Isolated Antibiotic Interpretation ROSE Status Weinert Count Organism: 1.1 Urine Culture - [facility] O:PROMIR Urine Culture - [facility] Urine Culture - [facility] Meropenem/Vaborbactam S F Testing performed at [facility] Isolated Antibiotic Interpretation ROSE Status Weinert Count Organism: 1.1 Urine Culture - FR O:PROMIR Urine Culture - [facility] Urine Culture - FR Tobramycin S F Testing performed at [facility] Isolated Antibiotic Interpretation ROSE Status Weinert Count Organism: 1.1 Urine Culture - FR O:PROMIR Urine Culture - [facility] Urine Culture - FR Ampicillin/Sulbactam S F Testing performed at [facility] Isolated Antibiotic Interpretation ROSE Status Weinert Count Organism: 1.1 Urine Culture - FR O:PROMIR Urine Culture - [facility] Urine Culture - FR Cefazolin S F Testing performed at [facility] Isolated Antibiotic Interpretation ROSE Status Weinert Count Organism: 1.1 Urine Culture - [facility] O:PROMIR Urine Culture - [facility] Urine Culture - [facility] Cefepime S F Testing performed at [facility] Isolated Antibiotic Interpretation ROSE Status Weinert Count Organism: 1.1 Urine Culture - [facility] O:PROMIR Urine Culture - [facility] Urine Culture - [facility] Ceftriaxone S F Testing performed at [facility] Isolated Antibiotic Interpretation ROSE Status Weinert Count Organism: 1.1 Urine Culture - [facility] O:PROMIR Urine Culture - [facility] Urine Culture - [facility] Cefuroxime S F Testing performed at [facility] Isolated Antibiotic Interpretation ROSE Status Weinert Count Organism: 1.1 Urine Culture - [facility] O:PROMIR Urine Culture - [facility] Urine Culture - [facility] Piperacillin/Tazoba ctam S F Testing performed at [facility] Isolated Antibiotic Interpretation ROSE Status Weinert Count Organism: 1.1 Urine Culture - [facility] O:PROMIR Urine Culture - [facility] Urine Culture - [facility] Trimethoprim/Sulfa S F Testing performed at [facility] Isolated Antibiotic Interpretation ROSE Status Weinert Count Organism: 1.1 Urine Culture - [facility] O:PROMIR Urine Culture - [facility] Performing Lab: see note ML - [facility] LB SEE REPORT - Phlebotomy Tech Id information not found for OBX-specific small battery plate assembler legend Troponin I High Sensitivity Reviewed date:10/18/2024 04:24:42 PM Interpretation: Performing Lab: Notes/Report: [facility] , Troponin I High Sensitivity 18.8 4.0-51.3 pg/mL DIAGNOSIS. HAS BEEN CONFIRMED THE DECISION THRESHOLD FOR ID 99TH PERCENTILE = 51.4 PG/ML UNIVERSAL DEFINITION [...] CONJUNCTION Performing Lab: see note ML - [facility] LB LACTATE or LACTIC ACID Reviewed date:10/18/2024 04:24:42 PM Interpretation: Performing Lab: Notes/Report: [facility] , Lactate/Lactic Acid 1.7 0.4-2.0 mmol/L Performing Lab: see note ML - [facility] BLOOD GASES BTY Reviewed date:10/18/2024 04:24:42 PM Interpretation: Performing Lab: Notes/Report: [facility] , pH ABG 7.409 7.350-7.450 ABG PCO2 51.8 35.0-45.0 mmHg RESULTS AVALOS D TO ALIZA TOWNSEND RN PO2 ABG 67.3 80.0-100.0 mmHg HCO3 ABG 32.7 22.0-26.0 mmol/L Base Excess ABG 8.1 -2.0-2.0 mmol/L Oxygen Saturation ABG 94.5 Quinten Test POSITIVE POSITIVE O2 Mode NC Liters per Minute 2 Puncture Site LR Performing Lab: see note ML - [facility] PTT Reviewed date:10/18/2024 04:24:42 PM Interpretation: Performing Lab: Notes/Report: [facility] , Partial Thromboplastin Time 24.8 22.3-36.2 sec Performing Lab: see note ML - [facility] Prothrombin Time INR Reviewed date:10/18/2024 04:24:42 PM Interpretation: Performing Lab: Notes/Report: [facility] , Prothrombin Time 10.7 9.0-11.6 sec INR 1.01 2.5-3.5 FOR PROSTHETIC HEART VALVE REPLACEMENT DESIRED INR: 2.5-3.5 RECURRENT THROMBOSIS 2.0-3.0 CONDITIONS NOT LISTED BELOW Performing Lab: see note ML - [facility] ECG 12 lead Reviewed date:10/19/2024 09:03:55 PM Interpretation: Performing Lab: Notes/Report: Source Facility: [facility]-[address] [place] [address] [place] [address] Electrocardiograph Report Signed Patient: NITHYA VASQUEZ MR#: [id number] : 1970 Acct:[id number] Age/Sex: 54 / F ADM Date: 10/17/24 Loc: [place] 223-[address]: Adrienne Holguin M.D. Ordering Physician: Adrienne Holguin M.D. Date of Service: 10/18/24 Procedure(s): ECG 12 lead Accession Number(s): [id number] cc: [facility] Test Date: 2024-10-18 Pat Name: NITHYA VASQUEZ Department: Room: [facility] Gender: Female Cloth Measurer Machine: : 1970 Requested By: ADRIENNE HOLGUIN Order Number: [id number] Reading MD: ARTURO MOY M.D. Measurements Intervals [place] Rate: 92 P: 79 WY: 180 QRS: 62 QRSD: 78 T: 36 QT: 352 QTc: 402 Interpretive Statements 1100 Sinus rhythm 9110 normal ECG Compared to ECG 10/17/2024 19:42:58 Sinus tachycardia no longer present ST (T wave) deviation no longer present Electronically Signed On 10-18-2024 23:54:38 EDT by ARTURO MOY M.D. Dictated By: ARTURO MOY Signed By: 10/18/24 2355 DD/ 0740 TD/TT: Director Of Manufacturing: [place] [address] Electrocardiograph Report Signed Patient: SHEYLA VASQUEZ MR#: [id number] : 1970 Acct:[id number] Age/Sex: 54 / F ADM Date: 10/17/24 Loc: [place] 223-[address]: Angely Holguin M.D. Ordering Physician: Adrienne Holguin M.D. Date of Service: 10/18/24 Procedure(s): ECG 12 lead Accession Number(s): [id number] cc: [facility] Test Date: 2024-10-18 Pat Name: NITHYA FUNEZ Department: 61 Room: [facility] Gender: Female Cloth Measurer Machine: : 1970 Requ ested By: ADRIENNE HOLGUIN Order Number: [id number] Reading MD: ARTURO MOY M.D. Measurements Intervals [place]oint Rate: 92 P: 79 WY: 180 QRS: 62 QRSD: 78 T: 36 QT: 352 QTc: 402 Interpretive Statements 1100 Sinus rhythm 9110 normal ECG Compared to ECG 10/17/2024 19:42:58 Sinus tachycardia no longer present ST (T wave) deviatio n no longer present Electronically Nona d On 10-18-2024 23:54:38 EDT by ARTURO MOY M.D. Dictated By: ARTURO MOY Signed By: 10/18/24 9258 DD/ 0743 TD/TT: Director Of Manufacturing: Troponin I High Sensitivity Reviewed date:10/18/2024 04:24:42 PM Interpretation: Performing Lab: Notes/Report: [facility] , Troponin I High Sensitivity 1412.6 4.0-51.3 pg/mL HAS BEEN CONFIRMED THE DECISION THRESHOLD FOR ID UNIVERSAL DEFINITION OF MYOCARDIAL INFARCTION. THE UPPER [...] Aliza Townsend RN Performing Lab: see note ML - [facility] LB DIGOXIN Reviewed date:10/19/2024 09:03:55 PM Interpretation: Performing Lab: Notes/Report: [facility] , Digoxin 1.1 0.9-2.0 ng/mL Performing Lab: see note ML - [facility] LB Troponin I High Sensitivity Reviewed date:10/21/2024 09:27:44 PM Interpretation: Performing Lab: Notes/Report: [facility] , Troponin I High Sensitivity 643.9 4.0-51.3 pg/mL USED IN ISOLATION BUT SHOULD BE INTERPRETED IN CONJUNCTION at 0623 CUT-OFF POINTS HAVE BEEN ESTABLISHED BASED ON THE FOURTH UNIVERSAL DEFINITION OF MYOCARDIAL INFARCTION. THE UPPER 99TH PERCENTILE = 51.4 PG/ML PERCENTILE OF cTnI DISTRIBUTION IN A REFERENCE POPULATION, HAS BEEN CONFIRMED THE DECISION THRESHOLD FOR ID WITH OTHER DIAGNOSTIC AND CLINICAL INFORMATION. DIAGNOSIS. REFERENCE LIMIT (URL) OF TROPONIN, DEFINED THE 99TH NOTE: HIGH-SENSITIVITY TROPONIN ASSAY IS NOT INTENDED TO BE RESULTS CALLED TO ERICK GOMEZ RN @BY Leslie Urbina Performing Lab: see note ML - [facility] LB PROF CHEM 8 (BAS METB) Reviewed date:10/21/2024 09:27:44 PM Interpretation: Performing Lab: Notes/Report: [facility] , Sodium 150 136-145 mmol/L Potassium [...] Performing Lab: see note ML - [facility] LB CBC AUTO DIFF Reviewed date:10/21/2024 09:27:44 PM Interpretation: Performing Lab: Notes/Report: [facility] , White Blood Count 9.6 4.0-11.0 [...] 3/uL Performing Lab: see note ML - [facility] BNP Reviewed date:10/21/2024 09:27:44 PM Interpretation: Performing Lab: Notes/Report: [facility] , NT Pro B Type Natriuretic Pept 2996.0 <=900.0 pg/mL at 0623 RESULTS CALLED TO ERICK GOMEZ RN @BY Leslie Urbina Performing Lab: see note ML - [facility] LB Occult Blood* Reviewed date:10/21/2024 09:27:44 PM Interpretation: Performing Lab: Notes/Report: [facility] , Occult Blood Positive Performing Lab: see note - [facility] Troponin I High Sensitivity Reviewed date:10/20/2024 04:20:37 PM Interpretation: Performing Lab: Notes/Report: [facility] , Troponin I High Sensitivity 833.8 4.0-51.3 pg/mL DIAGNOSIS. NOTE: HIGH-SENSITIVITY TROPONIN ASSAY IS NOT INTENDED TO BE REFERENCE LIMIT (URL) OF TROPONIN, DEFINED THE 99TH CUT-OFF POINTS HAVE BEEN ESTABLISHED BASED ON THE FOURTH PERCENTILE OF cTnI DISTRIBUTION IN A REFERENCE POPULATION, Ciara at 0620 RESULTS CALLED TO GILBERTO SGEOVIA RN @BY Leslie NICHOLAS DEFINITION OF MYOCARDIAL INFARCTION. THE UPPER HAS BEEN CONFIRMED THE DECISION THRESHOLD FOR ID 99TH PERCENTILE = 51.4 PG/ML WITH OTHER DIAGNOSTIC AND CLINICAL INFORMATION. USED IN ISOLATION BUT SHOULD BE INTERPRETED IN CONJUNCTION Performing Lab: see note - [facility] PROF CHEM 8 (BAS METB) Reviewed date:10/20/2024 04:20:37 PM Interpretation: Performing Lab: Notes/Report: [facility] , Sodium 149 136-145 mmol/L Potassium [...] Performing Lab: see note ML - [facility] LB DIGOXIN Reviewed date:10/20/2024 04:20:37 PM Interpretation: Performing Lab: Notes/Report: [facility] , Digoxin 0.8 0.9-2.0 ng/mL Performing Lab: see note ML - [facility] LB CBC AUTO DIFF Reviewed date:10/20/2024 04:20:37 PM Interpretation: Performing Lab: Notes/Report: [facility] , White Blood Count 8.6 4.0-11.0 [...] 3/uL Performing Lab: see note ML - [facility] BNP Reviewed date:10/20/2024 04:20:37 PM Interpretation: Performing Lab: Notes/Report: [facility] , NT Pro B Type Natriuretic Pept 4134.0 <=900.0 pg/mL Ciara at 0620 RESULTS CALLED TO GILBERTO SEGOVIA RN @BY Leslie Morrow Performing Lab: see note - [facility] Troponin I High Sensitivity Reviewed date:10/19/2024 09:03:55 PM Interpretation: Performing Lab: Notes/Report: [facility] , Troponin I High Sensitivity 1054.0 4.0-51.3 pg/mL 99TH PERCENTILE = 51.4 PG/ML HAS BEEN CONFIRMED THE DECISION THRESHOLD FOR ID UNIVERSAL DEFINITION OF MYOCARDIAL INFARCTION. THE UPPER [...] 99TH Performing Lab: see note ML - [facility] LB PROF CHEM 8 (BAS METB) Reviewed date:10/19/2024 09:03:55 PM Interpretation: Performing Lab: Notes/Report: [facility] , Sodium 148 136-145 mmol/L Potassium [...] Performing Lab: see note ML - [facility] LB LIVER PROFILE Reviewed date:10/19/2024 09:03:55 PM Interpretation: Performing Lab: Notes/Report: [facility] , Bilirubin Total 0.3 0.2-1.0 mg/dL Bilirubin Direct 0.1 0.0-0.2 mg/dL Aspartate Amino Transferase 35 15-37 U/L Alanine Aminotransferase 47 14-59 U/L Alkaline Phosphatase 93 46-116 U/L Total Protein 5.7 6.4-8.2 g/dL Albumin Level 1.9 3.4-5.0 g/dL Globulin 3.8 Albumin Globulin Ratio 0.5 Performing Lab: see note ML - [facility] LB CBC AUTO DIFF Reviewed date:10/19/2024 09:03:55 PM Interpretation: Performing Lab: Notes/Report: [facility] , White Blood Count 10.5 4.0-11.0 [...] Performing Lab: see note ML - [facility] LB BNP Reviewed date:10/19/2024 09:03:55 PM Interpretation: Performing Lab: Notes/Report: [facility] , NT Pro B Type Natriuretic Pept 4775.0 <=900.0 pg/mL at 0615 RESULTS CALLED TO GILL BRANHAM RN @BY Leslie Urbina Performing Lab: see note ML - [facility] Troponin I High Sensitivity Reviewed date:10/18/2024 04:24:42 PM Interpretation: Performing Lab: Notes/Report: [facility] , Troponin I High Sensitivity 1275.6 4.0-51.3 pg/mL RESULTS CALLED TO Aliza Townsend RN PERCENTILE OF cTnI DISTRIBUTION IN A REFERENCE POPULATION, REFERENCE LIMIT (URL) OF TROPONIN, DEFINED THE 99TH CUT-OFF POINTS HAVE BEEN ESTABLISHED BASED ON THE FOURTH HAS BEEN CONFIRMED THE DECISION THRESHOLD FOR ID NOTE: HIGH-SENSITIVITY TROPONIN ASSAY IS NOT INTENDED TO BE DIAGNOSIS. WITH OTHER DIAGNOSTIC AND CLINICAL INFORMATION. 99TH PERCENTILE = 51.4 PG/ML USED IN ISOLATION BUT SHOULD BE INTERPRETED IN CONJUNCTION UNIVERSAL DEFINITION OF MYOCARDIAL INFARCTION. THE UPPER Performing Lab: see note ML - [facility] LB Troponin I High Sensitivity Reviewed date:10/18/2024 04:24:42 PM Interpretation: Performing Lab: Notes/Report: [facility] , Troponin I High Sensitivity 1354.8 [...] HAS BEEN CONFIRMED THE DECISION THRESHOLD FOR ID Performing Lab: see note ML - [facility] Troponin I High Sensitivity Reviewed date:10/18/2024 04:24:42 PM Interpretation: Performing Lab: Notes/Report: [facility] , Troponin I High Sensitivity 1650.4 4.0-51.3 pg/mL 99TH PERCENTILE = 51.4 PG/ML UNIVERSAL DEFINITION OF MYOCARDIAL INFARCTION. THE UPPER CUT-OFF POINTS HAVE BEEN ESTABLISHED BASED ON THE FOURTH PERCENTILE OF cTnI DISTRIBUTION IN A REFERENCE POPULATION, NOTE: HIGH-SENSITIVITY TROPONIN ASSAY IS NOT INTENDED TO BE HAS BEEN CONFIRMED THE DECISION THRESHOLD FOR ID WITH OTHER DIAGNOSTIC AND CLINICAL INFORMATION. REFERENCE LIMIT (URL) OF TROPONIN, DEFINED THE 99TH DIAGNOSIS. USED IN ISOLATION BUT SHOULD BE INTERPRETED IN CONJUNCTION RESULTS CALLED TO Erick Gomez RN Performing Lab: see note ML - [facility] PROF CHEM 8 (BAS METB) Reviewed date:10/18/2024 04:24:42 PM Interpretation: Performing Lab: Notes/Report: [facility] , Sodium 145 136-145 mmol/L Potassium [...] 8.2 8.5-10.1 mg/dL Performing Lab: see note ML - [facility] BNP Reviewed date:10/18/2024 04:24:42 PM Interpretation: Performing Lab: Notes/Report: [facility] , NT Pro B Type Natriuretic Pept 5191.0 <=900.0 pg/mL RESULTS CALLED TO Erick Gomez RN Performing Lab: see note ML - [facility] Troponin I High Sensitivity Reviewed date:10/22/2024 08:13:21 PM Interpretation: Performing Lab: Notes/Report: [facility] , Troponin I High Sensitivity 451.2 [...] HAS BEEN CONFIRMED THE DECISION THRESHOLD FOR ID REFERENCE LIMIT (URL) OF TROPONIN, DEFINED THE 99TH at 0611 Performing Lab: see note ML - [facility] LB PROF CHEM 8 (BAS METB) Reviewed date:10/22/2024 08:13:21 PM Interpretation: Performing Lab: Notes/Report: [facility] , Sodium 148 136-145 mmol/L Potassium [...] Performing Lab: see note ML - [facility] LB CBC AUTO DIFF Reviewed date:10/22/2024 08:13:21 PM Interpretation: Performing Lab: Notes/Report: [facility] , White Blood Count 8.3 4.0-11.0 [...] Performing Lab: see note ML - [facility] LB BNP Reviewed date:10/22/2024 08:13:21 PM Interpretation: Performing Lab: Notes/Report: [facility] , NT Pro B Type Natriuretic Pept 1268.0 <=900.0 pg/mL at 0611 RESULTS CALLED TO ERICK GOMEZ RN @BY Leslie Urbina Performing Lab: see note ML - [facility] LB Reason For Referral No Information Medications Medication [...] W/U Status Risk Notes Problem Multiple sclerosis ([id number]) Multiple sclerosis (G35) Active confirmed Problem Obesity (347944698) Obesity (E66.9) Active confirmed Problem Bipolar 1 disorder ([id number]) Bipolar 1 disorder (F31.9) Active confirmed Problem Acute exacerbation of chronic obstructive airways disease (822958122) COPD exacerbation (J44.1) Active confirmed Problem Systolic and diastolic CHF, acute on chronic (I50.43) Active confirmed Problem Brain mass (817479031) Brain mass (G93.89) Active confirmed Plan Of Treatment No Information Insurance Providers Payer Name Payer Address Payer Phone Subscriber Number Group Number Insured Name Patient Relationship to Insured Coverage Start Date Coverage End Date [facility] MEDICARE ADVANTAGE [address] [address] [place] [id number] [phone] [id number] Nithya Vasquez Self - patient is the insured Medical (General) History Medical History History ICD Code stroke Chronic diarrhea K52.9 Hyperlipidemia E78.5 Hypertension 401.9 Anxiety and depression F41.9 Constipation K59.00 Burning sensation of rectum R20.8 Surgical History Surgery Date(Month/Year) tubal 1991 carpal tunnel
--- OUTSIDE RECORDS SUMMARY | 2024-11-24 18:38 | XMS_ITS | Encounter Summary ---
Author Organization [facility] Address [facility] [place] [address] Care Team Providers Care Background Investigator Name Role Phone Valdez Acosta MD Primary Care Provider [phone] Dian Smith PA-C Unavailable + [phone] Malinda Lopez APRN.[employer] Unavailable + [phone] Source Comments In the event this information is protected by the Federal Confidentiality of Alcohol and Drug AbusePatient Records regulations: The Federal rules restrict any use of the information to criminally investigate or prosecute any alcohol or drug abuse patient.[facility] Encounter Details Date Type Department Care Team (Late st Contact Info) Description 07/05/2023 Patient Msg Neurology [address] [phone] Provider, Ccf Please Call [employer] Social History Tobacco Use Types Packs/Day Years [...] Never 08/02/2020 How often do you attend adventist or moravian serv ices? Never 08/02/2020 Do you belong to any clubs o r organizations such as adventist groups, unions, fraternal or athletic groups, or [...] Answer Date Recorded PHQ-2 score 1 05/01/2023 [facility] - Occupational Stress Questionnaire Answer [...] is lower risk 4 09/20/2022 Data from: https://www.neighborhoodatlas.medicine.[facility].edu/. Last address used for calculation [address] [...] on filedocumented in this encounter Care Teams Background Investigator Relationship Specialty Start Date End Date Valdez Acosta MD [address] [place] [address] PCP - General Internal Medicine 11/01/20 Dian Smith PA-C [facility] [place] [address] Police Liaison Internal Medicine 04/26/24 05/21/24 Malinda Lopez APRN.[employer] [address] [place] [address] Police Liaison Family Medicine 04/26/24 documented as of this encounter
--- OUTSIDE RECORDS SUMMARY | 2024-11-24 18:38 | XMS_ITS | Encounter Summary ---
Author Organization [facility] Address [address] [place], [place] [address] Care Team Providers Care Front Elevator Operator Name Role Phone Frances Hills (Rn) slasher runner Provider Valdez Bhandari MD Primary Care Provider [phone] Dian Smith PA-C Unavailable + [phone] Malinda Lopez APRN.[facility] Unavailable + [phone] Source Comments In the event this information is protected by the Federal Confidentiality of Alcohol and Drug AbusePatient Records regulations: The Federal rules restrict any use of the information to criminally investigate or prosecute any alcohol or drug abuse patient.[facility] Encounter Details Date Type Department Care Team (Late st Contact Info) Description 07/15/2020 Patient [facility] [address] [place], [place] [phone] Provider, Ccf Referral Social History Tobacco Use [...] N ot on file 04/27/2020 Data from: https://www.neighborhoodatlas.medicine.[facility]/. Last address used for calculation Not on [...] documented as of this encounter Care Teams Front Elevator Operator Relationship Specialty Start Date End Date ReinierAugust (Rn), RN PCP - General 12/06/17 10/31/20 Valdez Acosta MD [address] [place] [address] PCP - General Internal Medicine 11/01/20 Dian Smith PA-C [address] [place] [address] Black Puller Internal Medicine 04/26/24 05/21/24 Malinda Lopez, GUSSET EDGER.MOBILE UI/UX DESIGNER [address] [place] [address] [facility] Family Medicine 04/26/24 documented as of this encounter
--- OUTSIDE RECORDS SUMMARY | 2024-11-24 18:38 | XMS_ITS | Encounter Summary ---
Author Organization [facility] Address [address] [place] [address] Care Team Providers Care Materials Engineer Name Role Phone Frances Hills (Rn) quarrying specialist Provider Valdez Bhandari MD Primary Care Provider [phone] Dian Smith PA-C Unavailable + [phone] Malinda Lopez APRN.[facility] Unavailable + [phone] Source Comments In the event this information is protected by the Federal Confidentiality of Alcohol and Drug AbusePatient Records regulations: The Federal rules restrict any use of the information to criminally investigate or prosecute any alcohol or drug abuse patient.[facility] Encounter Details Date Type Department Care Team (Late st Contact Info) Description 03/11/2020 Patient [facility] [address] [phone] Provider, [facility] Social History Tobacco Use Types Packs/Day [...] documented as of this encounter Care Teams Materials Engineer Relationship Specialty Start Date End Date Reinier August (Rn), RN PCP - General 12/06/17 10/31/20 Valdez Acosta MD [address] [place] [address] PCP - General Internal Medicine 11/01/20 Dian Smith PA-C [address] [place] [address] [facility] Internal Medicine 04/26/24 05/21/24 Malinda Lopez, TRAVEL ASSISTANT.[facility] [address] [place] [address] [facility] Family Medicine 04/26/24 documented as of this encounter
--- OUTSIDE RECORDS SUMMARY | 2024-11-24 18:38 | XMS_ITS | Encounter Summary ---
Author Organization [facility] Address [address] [place] [address] Care Team Providers Care Principal Archaeologist Name Role Phone Kristin Gracia CLINICAL RESEARCH NURSE COORDINATOR Unavailable [phone] Maxim Lanza MD Primary Care Provider Encounter Details Date Type Department Care Team (Late st Contact Info) Description 10/08/2024 Abstract [facility] [address] [place] [address] Maxim Lanza MD [address] [place] [address] Social History Tobacco Use Types Packs/Day Years [...] How often do you attend chur or evangelical services? 1 to 4 times per year 06/04/2023 Do you belong to any clubs o r organizations such as cheondoism groups, unions, fraternal or athletic groups, or [...] Recorded Patient Health Questionnaire-2 Score 6 05/18/2024 [facility]at ional Health - [...] documented as of this encounter Care Teams Principal Archaeologist Relationship Specialty Start Date End Date Maxim Lanza MD [address] [place] [address] PCP - General Family Medicine 07/15/23 Kristin Gracia NP [address] [place] [address] Primary Care Provider Family Medicine 05/20/22 documented as of this encounter
--- OUTSIDE RECORDS SUMMARY | 2024-11-24 18:38 | XMS_ITS | Encounter Summary ---
Author Organization [facility] Address [address] [place] [address] Care Team Providers Care Stave Hewer Name Role Phone Kristin Gracia STORY WRITER Unavailable [phone] Maxim Lanza MD Primary Care Provider Maxim Lanza MD Primary Care Provider [phone] Encounter Details Date Type Department Care Team (Late st Contact Info) Description 05/09/2023 Abstract [facility] [address] [place] [id number] Kristin Gracia NP [address] [place] [address] Social History Tobacco Use Types Packs/Day Years [...] How often do you attend chur or yarsani services? Never 05/01/2023 Do you belong to any clubs o r organizations such as moravian groups, unions, fraternal or athletic groups, or [...] Recorded Patient Health Questionnaire-2 Score 2 05/01/2023 [facility] Occupat ional Health - Occupational [...] slept in a mcfp (including now)? No 05/01/2023 Comments Unknown Sex [...] documented as of this encounter Care Teams Stave Hewer Relationship Specialty Start Date End Date Maxim Lanza MD [address] [place] [address] PCP - General Family Medicine 04/22/23 07/14/23 Maxim Lanza MD [address] [place] [address] PCP - General Family Medicine 07/15/23 Kristin Gracia NP [address] [place] [address] Primary Care Provider Family Medicine 05/20/22 documented as of this encounter
--- OUTSIDE RECORDS SUMMARY | 2024-11-24 18:38 | XMS_ITS | Encounter Summary ---
Author Organization [facility] Address [facility] [place] [address] Care Team Providers Care Marketing Services Rep Name Role Phone Valdez Acosta MD Primary Care Provider [phone] Dian Smith PA-C Unavailable [phone] Malinda Lopez APRN.CT MANAGER Unavailable + [phone] Source Comments In the event this information is protected by the Federal Confidentiality of Alcohol and Drug AbusePatient Records regulations: The Federal rules restrict any use of the information to criminally investigate or prosecute any alcohol or drug abuse patient.[facility] Encounter Details Date Type Department Care Team (Late st Contact Info) Description 09/09/2023 Patient Msg Neurology [address] [phone] Provider, Ccf Requested EMG Appointment Social History [...] Never 08/02/2020 How often do you attend restorationism or restorationism serv ices? Never 08/02/2020 Do you belong to any clubs o r organizations such as restorationism groups, unions, fraternal or athletic groups, or [...] Answer Date Recorded PHQ-2 score 5 09/05/2023 [facility] of Occupat ional Health [...] slept in a mcc (including now)? No 08/02/2020 Area Deprivation Index Answer Date Chris rded National Score (1-100), lower number is lower ri sk 63 09/20/2022 State Score (1-10), lower number is lower risk 4 09/20/2022 Data from: https://www.neighborhoodatlas.medicine.[facility].edu/. Last address used for calculation [address] [...] on filedocumented in this encounter Care Teams Marketing Services Rep Relationship Specialty Start Date End Date Valdez Acosta MD [address] [place] [address] PCP - General Internal Medicine 11/01/20 Dian Smith PA-C [address] [place] [address] Clipper Operator Internal Medicine 04/26/24 05/21/24 Malinda Lopez APRN.CT MANAGER [address] [place] [address] Clipper Operator Family Medicine 04/26/24 documented as of this encounter
--- OUTSIDE RECORDS SUMMARY | 2024-11-24 18:38 | XMS_ITS | Encounter Summary ---
Author Organization [facility] Address [address] [place] [address] Care Team Providers Care Promotions Assistant Name Role Phone Kristin Gracia SOFTBALL WINDER Unavailable [phone] Maxim Lanza MD Primary Care Provider Encounter Details Date Type Department Care Team (Late st Contact Info) Description 10/20/2024 Abstract [facility] [address] [place] [address] Kristin Gracia NP [address] [place] [phone] Social History Tobacco Use Types Packs/Day Years [...] How often do you attend chur or buddhist services? 1 to 4 times per year [...] Recorded Patient Health Questionnaire-2 Score 6 05/18/2024 [facility] of Occupat ional Health - [...] slept in a snf (including now)? No 06/04/2023 Comments Unknown Sex [...] documented as of this encounter Care Teams Promotions Assistant Relationship Specialty Start Date End Date Maxim Lanza MD [address] [place] [address] PCP - General Family Medicine 07/15/23 Kristin Gracia NP [address] [place] [address] Primary Care Provider Family Medicine 05/20/22 documented as of this encounter
--- OUTSIDE RECORDS SUMMARY | 2024-11-24 18:38 | XMS_ITS | Patient Health Record ---
Author Organization [facility] Address [address] [place] [address] [place] [address] Care Team Providers Care Watershed Manager Name Role Phone Rio Ennis Primary Care Provider UnavailGlen Beatty Unavailable [phone] Reason For Referral No Information Encounters Encounter Location Date Provider Diagnosis [facility] [address] [place] [address] 10/14/2024 [place] Plan Of Treatment No Information Insurance Providers Payer Name Payer Address Payer Phone Subscriber Number Group Number Insured Name Patient Relationship to Insured Coverage Start Date Coverage End Date [facility] [address] [address] [place] [address] [id number] Yamilka Yates Self - patient is the insured
--- OUTSIDE RECORDS SUMMARY | 2024-11-24 18:39 | XMS_ITS ---
[facility] Organization [facility] Address [id number] [address] [place] [address] Care Team Providers Care Video And Sound Recorder Name Role Phone HarveybereniceKristin perry BOGGER OPERATOR-DIRECTOR INDEX Primary Care Provider Active Problems Problem Noted Date Diagnosed Date GBM (glioblastoma multiforme) 11/12/2024 Cancer Staging:Clinical stage from 09/23/2024:WHO G4- Signed by Grey Yo MD on 11/12/2024 Altered mental status, unspe cified altered mental [...] 04/30/2023 Primary hypertension 04/30/2023 Primary insomnia 04/30/2023 Current Treatment and Therapy Plans No current plan information found. Past Treatment and Therapy Plans Lifetime Dose Tracking * Chemical Lifetime Dose Automatic Entry Manual Entr y Fluoroscopy 7.3 mGy 7.3 mGy 0 mGy
--- OUTSIDE RECORDS SUMMARY | 2024-11-24 18:39 | XMS_ITS | Encounter Summary ---
Author Organization [facility] tem Address [facility]-[id number] [address] [place] [address] Care Team Providers Care Oil Tanker Captain Name Role Phone HarveybereniceKristin perry PRIMARY SCHOOL TEACHER-COLOR PASTE MIXING SUPERVISOR Primary Care Provider Encounter Details Date Type Department Care Team ([facility] st Contact Info) Description 11/11/2024 Telephone [facility] Hematology Oncology, A Department of [facility] [address] [facility] [address] [place] [address] Ellie Coleman CMA Social History Tobacco Use Types Packs/Day Years Used Date Smoking Tobacco: Some Days Cigarettes Smokeless Tobacco: Never Alcohol Use Standard Drinks/Week Comments Never 0 (1 standard drink = 0.6 oz pur e alcohol) [facility] Utilities Answer Date Recorded In the [...] on filedocumented in this encounter Care Teams Oil Tanker Captain Relationship Specialty Start Date End Date Kristin Gracia, ELAN-COLOR PASTE MIXING SUPERVISOR PCP - General Nurse Practitioner 08/28/24 documented as of this encounter
--- OUTSIDE RECORDS SUMMARY | 2024-11-24 18:39 | XMS_ITS | Encounter Summary ---
Author Organization [employer] [facility] Address [facility]-[id number] [address] [place] [address] Care Team Providers Care Studio Technician Name Role Phone Harveyberenicevicky Kristin Abarca RENTAL MANAGER-TRAVELING INVENTORY ASSOCIATE Primary Care Provider Encounter Details Date Type Department Care Team (Latest Contact Info) Description 11/10/2024 Travel Social History Tobacco Use Types Packs/Day Years [...] on filedocumented in this encounter Care Teams Studio Technician Relationship Specialty Start Date End Date Kristin Gracia, RENTAL MANAGER-TRAVELING INVENTORY ASSOCIATE PCP - General Nurse Practitioner 08/28/24 documented as of this encounter
--- OUTSIDE RECORDS SUMMARY | 2024-11-24 18:39 | XMS_ITS | Encounter Summary ---
Author Organization [employer] [facility] Address [facility]-[id number] [address] [place] [address] Care Team Providers Care Cafeteria Counter Attendant Name Role Phone Harveyberenicevicky Kristin Tevin ANSARI-VIDEOGAME TESTER Primary Care Provider Encounter Details Date Type Department Care Team (Late st Contact Info) Description 11/19/2024 Orders Only Meera Albarado [facility] - Medical Oncology [address] [place] [address] She Drew, MOE GBM (glioblastoma multiforme) ([facility]) (Primary Dx) Social History Tobacco Use Types Packs/Day Years Used Date Smoking Tobacco: Some Days Cigarettes Smokeless Tobacco: Never Alcohol Use Standard Drinks/Week Comments Never 0 (1 standard drink = 0.6 oz pur e alcohol) [facility] Utilities Answer Date Recorded In the past 12 months has e [employer], gas, oil, or water company threatened to [...] as of this encounter Plan of Treatment Scheduled Orders Name Type Priority Associated Diagnoses Orde r Schedule CBC auto differential Lab Routine GBM (glioblastoma multiforme) ([facility]) weekly for 7 Occurrences starting 11/19/2024 until 11/19/2033 Comprehensive metabolic panel Lab Routine GBM (glioblastoma multiforme) ([facility]) weekly for 7 Occurrences starting 11/19/2024 until 11/19/2025 documented as of this encounter Goals Goal Patient Goal Type Associated Problems Recent Progress Patient-Stated? Author SNF General Yes Amparo Lamas LSW Note: Evaluation of progress towards goal: SNF recommended, pt agreeable to SNF stating she is not able to care for self at home at this time documented as of this encounter Visit Diagnoses Diagnosis GBM (glioblastoma multiforme) ([facility])- Primary Malignant neoplasm of brain, unspecified site documented in this encounter Care Teams Cafeteria Counter Attendant Relationship Specialty Start Date End Date Kristin Gracia, INTEGRATED CIRCUIT DESIGN ENGINEER-VIDEOGAME TESTER PCP - General Nurse Practitioner 08/28/24 documented as of this encounter
--- OUTSIDE RECORDS SUMMARY | 2024-11-24 18:39 | XMS_ITS | Encounter Summary ---
Author Organization [facility] tem Address [facility]-[id number] [address] [place] [address] Care Team Providers Care Hand Cigar Making Supervisor Name Role Phone HarveybereniceKristin perry RAFTSMAN-BOX TOE CUTTER Primary Care Provider Reason for Visit * Reason Onset Date Comments Received referral Radiation consult [facility] 11/12/19 Encounter Details Date Type Department Care Team (Late st Contact Info) Description 11/11/2024 Telephone [facility] Division of [facility] - Radiation Oncology [address] [place] [address] Leyla Gusman Received referral Radiation consult [facility] Social History Tobacco Use Types Packs/Day Years Used Date Smoking Tobacco: Some Days Cigarettes Smokeless Tobacco: Never Alcohol Use Standard Drinks/Week Comments Never 0 (1 standard drink = 0.6 oz pur e alcohol) [facility] Utilities Answer Date Recorded In the past 12 months has e [employer], gas, oil, or water [employer] threatened to shut off services in your [...] on file documented as of this encounter Miscellaneous Notes * Telephone Encounter - Leyla Gusman - 11/11/2024 1:02 PM EDT Received referral for Radiation consult. Patient is currently at [facility]. I called andwas transferred to [place] I was told he is the transportation senior master scheduler. [phone] documented in this encounter Plan of Treatment [...] on filedocumented in this encounter Care Teams Hand Cigar Making Supervisor Relationship Specialty Start Date End Date Kristin Gracia, RAFTSMAN-BOX TOE CUTTER PCP - General Nurse Practitioner 08/28/24 documented as of this encounter
--- OUTSIDE RECORDS SUMMARY | 2024-11-24 18:39 | XMS_ITS | Encounter Summary ---
Author Organization [employer] [facility] Address [facility]-[id number] [address] [place] [address] Care Team Providers Care Swinging Cut Off Saw Operator Name Role Phone HarveybereniceMamta perrya Tevin ANSARI-EXHAUST EQUIPMENT OPERATOR Primary Care Provider Encounter Details Date Type Department Care Team (Late st Contact Info) Description 11/13/2024 Documentation [facility] - Medical Oncology [address] [place] [address] Nancy Hernandez, RN Social History Tobacco Use Types Packs/Day Years Used Date Smoking Tobacco: Some Days Cigarettes Smokeless Tobacco: Never Alcohol Use Standard Drinks/Week Comments Never 0 (1 standard drink = 0.6 oz pur e alcohol) [facility] Utilities Answer Date Recorded In the past [...] on filedocumented in this encounter Care Teams Swinging Cut Off Saw Operator Relationship Specialty Start Date End Date Kristin Gracia, TRESTLE MAINTERNANCE LABORER-EXHAUST EQUIPMENT OPERATOR PCP - General Nurse Practitioner 08/28/24 documented as of this encounter
--- OUTSIDE RECORDS SUMMARY | 2024-11-24 18:39 | XMS_ITS | Encounter Summary ---
Author Organization [employer] [facility] Address [facility]-[id number] [address] [place] [address] Care Team Providers Care Ball Point Splitter Name Role Phone HarveybereniceMamta perrya Tevin ANSARI-SMOKEHOUSE WORKER Primary Care Provider Encounter Details Date Type Department Care Team (Late st Contact Info) Description 11/12/2024 Documentation Meera Albarado [facility] Center - Medical Oncology [address] [place] [address] She Drew, RN Social History Tobacco Use Types Packs/Day Years Used Date Smoking Tobacco: Some Days Cigarettes Smokeless Tobacco: Never Alcohol Use Standard Drinks/Week Comments Never 0 (1 standard drink = 0.6 oz pur e alcohol) [facility] Utilities Answer Date Recorded In the [...] on file documented as of this encounter Progress Notes * She Drew RN - 11/12/2024 1:53 PM EDT Patient saw Dr. Lundberg for consult for glioblastoma. Patient unsure if she wants to pursue concurrent chemo with RT. Will call patient in two weeks to see if she has made her decision. documented in this encounter Plan of Treatment [...] on filedocumented in this encounter Care Teams Ball Point Splitter Relationship Specialty Start Date End Date Kristin Gracia, ELAN-SMOKEHOUSE WORKER PCP - General Nurse Practitioner 08/28/24 documented as of this encounter
--- OUTSIDE RECORDS SUMMARY | 2024-11-24 18:39 | XMS_ITS | Clinical Summary ---
Author Organization [employer] tem Address [id number] [address] [place] [address] Care Team Providers Care Material Inspector Name Role Phone HarveyberenicevickyKristin Tevin CENTRAL CONTROL ROOM OPERATOR-LOGGING TRACTOR OPERATOR Primary Care Provider Allergies No known active [...] 1 tablet (25 mg total) before bedtime. 09/29/19 25 Active levETIRAcetam (KEPPRA) 500 mg tablet Take 1 tablet (500 mg total) by mouth in the morning and 1 tablet (500 mg total) before bedtime. 09/29/19 25 Active sennosides-docusa te sodium (SENOKOT-S) 8.6-50 mg Take 2 tablets by mouth nightly. 09/29/19 25 Active bumetanide (BUMEX) 2 mg tablet 11/07/19 25 Active busPIRone (BUSPAR) 7.5 mg tablet Take 1 tablet (7.5 mg total) by mouth. 09/16/19 25 Active dexAMETHasone (DECADRON) 4 mg tablet Take by mouth. 10/10/19 25 Active potassium chloride (KLOR-CON SPRINKLE) 10 MEQ CR capsule 11/07/19 25 Active traZODone (DESYREL) 50 mg tablet Take 0.5 tablets (25 mg total) by mouth. 02/05/20 24 Active levoFLOXacin (LEVAQUIN) 500 mg tablet Take 1 tablet (500 mg total) by mouth in the morning. End 11/24/24. 11/10/19 25 Active nystatin (MYCOSTATIN) powder Apply topically in the morning and before bedtime. 08/24/19 25 2025 Active temozolomide (TEMODAR) 180 MG chemo capsuleIndication s:GBM (glioblastoma multiforme) ([facility]) Take 1 capsule by mouth daily 42 capsule 11/14/19 25 Active ondansetron (ZOFRAN) 8 mg tablet Take 1 tablet (8 mg total) by mouth every 8 (eight) hours as needed for nausea or vomiting. 30 tablet 2 11/20/19 25 Active sulfamethoxazole- trimethoprim (BACTRIM DS) 800-160 mg per tabletIndications :GBM (glioblastoma multiforme) ([facility]) Take 1 tab daily, on Saturday and every week. 60 tablet 1 11/20/19 25 2025 Active albuterol-budeson ga 90-80 mcg/actuation HFA aerosol inhaler Albuterol 2024 Discontinued sulfamethoxazole- trimethoprim (BACTRIM DS) 800-160 mg per tablet Take 1 tab daily, on Saturday and every week. 60 tablet 1 11/20/19 25 2024 Discontinued(R eorder) Active Problems Problem Noted Date Diagnosed Date [...] Encounters Date Type Department Care Team Description 11/24/2024 Documentation Meera Albarado [facility] - Medical Oncology [address] [place] [phone] Priyanka Velez RN 11/19/2024 Orders Only Meera Albarado Castro [facility] - Medical Oncology [address] [place] [phone] Guillermo Lundberg MD GBM (glioblastoma multiforme) ([facility]) (Primary Dx) 11/19/2024 Orders Only Meera Albarado Castro [facility] - Medical Oncology [address] [place] [phone] Guillermo Lundberg MD 11/19/2024 Orders Only Meera Albarado Castro [facility] - Medical Oncology [address] [place] [phone] She Drew, MOE 11/19/2024 Orders Only Meera Albarado Castro [facility] - Medical Oncology [address] [place] [phone] She Drew, MOE GBM (glioblastoma multiforme) ([facility]) (Primary Dx) 11/13/2024 12:08 PM EDT - 11/13/2024 11:59 PM EDT [facility] [address] [place] [phone] Discharge Disposition: Still a Patient 11/13/2024 11:03 AM EDT - 11/13/2024 12:07 PM EDT Hospital Encounter [facility] Oncology - Radiation Oncology [address] [place] [phone] Glioblastoma ([facility]) (Primary Dx); GBM (glioblastoma multiforme) ([facility]) Discharge Disposition: Still a Patient 11/13/2024 11:03 AM EDT - 11/13/2024 12:07 PM EDT Hospital Encounter [facility] Oncology - Radiation Oncology [address] [place] [phone] GBM (glioblastoma multiforme) ([facility]) Discharge Disposition: Home 11/13/2024 9:48 AM EDT - 11/13/2024 11:02 AM EDT Hospital Encounter [facility] - MRI Imaging [address] [place] [phone] Grey Yo MD Glioblastoma ([facility]) Discharge Disposition: Home 11/13/2024 Orders Only Meera Alves [facility] - Medical Oncology [address] [place] [phone] Guillermo Lundberg MD GBM (glioblastoma multiforme) ([facility]) (Primary Dx) 11/13/2024 Documentation Meera Alves [facility] - Medical Oncology [address] [place] [phone] Nancy Hernandez RN 11/13/2024 Telephone [facility] Oncology - Radiation Oncology [address] [place] [phone] Guillermo Lundberg MD 11/12/2024 11:00 AM EDT Office Visit Meera Alves [facility] - Medical Oncology [address] [place] [phone] Guillermo Lundberg MD GBM (glioblastoma multiforme) ([facility]) (Primary Dx) 11/12/2024 10:41 AM EDT - 11/12/2024 11:59 PM EDT Hospital Encounter [facility] Oncology - Radiation Oncology [address] [place] [phone] GBM (glioblastoma multiforme) ([facility]) (Primary Dx); Brain tumor ([facility]); Double vision Discharge Disposition: Still a Patient 11/12/2024 Documentation [facility] - Radiation Oncology [address] [place] [address], [place] [phone] Nancy Hernandez, MOE 11/12/2024 Documentation Meera Alves [facility] - Medical Oncology [address] [place] [address], [place] [phone] She Drew RN 11/12/2024 [facility]ation [facility] [address] [place] [phone] Nancy Hernandez, MOE 11/12/2024 Orders [facility] [address] [place] [address], [place] [phone] Nancy Hernandez, MOE Glioblastoma ([facility]) (Primary Dx) 11/11/2024 Telephone [facility] - Radiation Oncology [facility] [place] [address] Leyla Gusman Received referral Radiation consult [facility] 11/11/2024 Telephone [facility] [address] [place] [phone] Anya Soni, chief data officer note 11/11/2024 Telephone [facility], A Department of [place] [address] [address] [facility] [place] [phone] Ellie Coleman LEGAL DOCUMENT SPECIALIST 11/11/2024 Telephone [facility] Hematology Oncology, A Department of [place] [address] [address] [place] [place] [phone] Ellie Coleman [facility] 11/10/2024 1:10 PM EDT Office Visit [facility] [address] [place] [phone] Andressa Garcia APRN-LOGGING TRACTOR OPERATOR Brain tumor ([facility]) (Primary Dx); Double vision 11/10/2024 Travel 09/29/2024 Telephone [facility] [address] [place] [phone] Anya Soni, RN incision 09/26/2024 Travel 09/23/2024 2:05 PM EDT - 09/23/2024 5:50 PM EDT Surgery [facility] - Surgery [address] [place] [phone] Juni Espinal MD SYNAPTIVE CRANIOTOMY EXCISION TUMOR 09/23/2024 1:17 PM EDT Anesthesia Event [facility] - Surgery [address] [place] [phone] Stan Hedrick MD Leopardi, Isabella, ALFREDO 09/19/2024 Orders Only [facility] [address] [place] [phone] Transcribe, Orders Support User Pain (Primary Dx) 09/19/2024 Travel 09/18/2024 11:59 PM EDT - 09/29/2024 12:15 AM EDT Hospital Encounter [facility] - GEN [address] [place] [phone] Lewis Botello DO Saleh, Murad H, MD Darr, MD Javy Martinez Venu Gopala R, MD Pillai, Kanchan M, MD Reinard, Kevin A, MD Pothireddy, Ravi P, MD Altered mental status, unspecified altered mental status type (Primary Dx); BRANDON (acute kidney injury); Brain mass; S/P craniotomy Discharge Disposition: Assisted Facility-Medicare Cert 09/18/2024 8:00 PM EDT Ancillary Procedure [facility] [address] [place] [phone] Pain 09/18/2024 6:35 PM EDT Ancillary Procedure [facility] [address] [place] [phone] Pain 09/16/2024 1:20 PM EDT Office Visit [facility] - Wound Care Clinic [address] [place] [phone] Margot Barnes APRN-RUBINA Dermatitis associated with moisture (Primary Dx); Pressure injury of left buttock, stage 2 (CMS-HCC) 09/16/2024 Travel 09/01/2024 Travel 08/28/2024 10:22 AM EDT - 09/01/2024 4:45 PM EDT Hospital Encounter [facility] - Acute Care [address] [place] [phone] Marielle Alexandra MD Asif, MD Elissa Power, Giselle Johnson MD Non-traumatic rhabdomyolysis (Primary Dx); Weakness Discharge Disposition: Assisted Facility-Medicare Cert 08/28/2024 Travel from Last 3 [...] drink = 0.6 oz pur e alcohol) [facility] Utilities Answer Date Recorded In the past 12 months has [employer] gas, oil, or water company threatened to [...] Mass Index 48.2 11/13/2024 1:32 PM EDT Plan of Treatment Health Maintenance Due Date Last Done Comments Tobacco Counseling 1968 Depression Screening 1980 Adult BMI Follow Up Plan 1986 Zoster (Shingles) Vaccine (1 of 2) 1987 Pap Smear 1989 COVID-19 Vaccine (2023-2 5 season) 2024 05/29/2022, 05/18/2021, 07/28/2020 Influenza Vaccine 01/18/2025 03/05/2024, , 04/30/2023, Additional history exists Tobacco Screening 11/12/2025 11/12/2024 Adult BMI Screening 11/13/2025 11/13/2024 DTaP,Tdap and Td Vaccines (2 - Td or Tdap) 10/02/2026 10/02/2016 Goals Goal Patient Goal Type Associated Problems Recent Progress Patient-Stated? Author SNF General Yes Amparo Lamas LSW Note: Evaluation of progress towards goal: SNF recommended, pt agreeable to SNF stating she is not able to care for self at home at this time Medical Devices Implanted Type Area Wire Harness Assembler Device Identifier Shelf Expiration Date Model / Serial / Lot Patch Dura 3x3in Thk3.5mm Crnmxf Drmtrx-[place] + Npor Rgnrt Rpl [id number] - [id number] Implanted:Qty : 1 on 09/23/2024 by Juni Espinal MD at [facility] Graft Right: Brain JIM CRANIOMAXILLOFACIAL 06/19/2027 [id number] / / [id number] Plate Bn 12mm 2 Hl Lp Bar Tab Unv Neuro Ii Crnmxf Ti Ns 1.5 - [id number] Implanted:Qty : 2 on 09/23/2024 by Juni Espinal MD at [facility] Plate Right: Brain [employer]ILL[employer] [id number] / / Cover Bur Hl Crnfcl 10mmx.5mm Lp Tab Strl Lf Disp - [id number] Implanted:Qty : 1 on 09/23/2024 by Juni Espinal MD at [facility] Plate Right: Brain [employer] [id number] / / Screw Bn 4mm 1.5mm Slf Drl Xpn Crnmxf Strl Must Order In Multiples Of 5ea - [id number] Implanted:Qty : 7 on 09/23/2024 by Juni Espinal MD at [facility] Screw Right: Brain [employer] [id number] / / Procedures Procedure Name Priority Date/Time Associated Diagnosis Comments CT ONCOLOGY Routine 11/13/2024 1:13 PM EDT GBM (glioblastoma multiforme) ([facility]) MR BRAIN W WO CONT STAT 11/13/2024 10 :41 AM EDT Glioblastoma ([facility]) FL SWALLOW MOTILITY FUNCTION Routine 09/28/2024 2:41 [...] PATHOLOGY Routine 09/23/2024 3: 06 PM EDT MN ANES ART LINE Routine 09/23/2024 2:06 PM EDT MN AN ELECTIVE ENDOTRACHEAL AIRWAY Routine 09/23/2024 1:28 [...] EDT from Last 3 Months Results * CT Oncology (11/13/2024 1:13 PM EDT) Narrative SYSTEMGENERATED, DOCUMENTATION - 11/13/2024 1:13 PM EDT This order was used for Radiation Treatment planning, auto-finalized, and does not contain a result. For full report details, please reach out to your physician. Effective 10/04/2020 this image will be visible to you in [email or web address] us Grey Yo MD IMG CT ORDERABLES Final Resu lt * MR brain with and without contrast [...] right temporal lobe mass, compatible with high-grade OUTREACH EDUCATOR glioma. There is expected post surgical distortion [...] right temporal lobe mass, compatible with high-grade OUTREACH EDUCATOR glioma. Expected postsurgical distortion is noted, as [...] complex right temporal lobemass, compatible with high-grade OUTREACH EDUCATOR glioma. There is expected postsurgical distortion of [...] complex righttemporal lobe mass, compatible with high-grade OUTREACH EDUCATOR glioma. Expectedpostsurgical distortion is noted, as above. [...] Sebastian Grayson MD on 11/13/2024 11:34 AM us Grey Yo MD IMG MRI ORDERABLES Final Res ult * Fluoroscopy swallow motility function (09/28/2024 2:41 [...] MD on 09/28/2024 3:08 PM Procedure Note Jayla Arroyo MD - 09/28/2024 FL SWALLOW MOTILITY [...] Jayla Arroyo MD on 09/28/2024 3:08 PM Jesi Lewis CENTRAL CONTROL ROOM OPERATOR-LOGGING TRACTOR OPERATOR IMG FLUOROSCOPY ORDERAB LES Final Result * (ABNORMAL) CBC auto differential (09/28/2024 6:43 AM EDT) Only the most recent of15 resultswithin the time period is included. WBC 15.5(H) 4 - 11 x10E9/L 09/28/2024 8:17 AM EDT [facility] RBC Count 4.27 3.8 - 5.2 X10E12/L 09/28/2024 8:17 AM EDT [facility] Hemoglobin 11.5(L) 11.7 - 15.5 g/dL 09/28/2024 8:17 AM EDT [facility] Hematocrit 35.5 35 - 47 % 09/28/2024 8:17 AM EDT [facility] MCV 83 80 - 100 fL 09/28/2024 8:17 AM EDT [facility] MCH 27.0 27 - 34 pg 09/28/2024 8:17 AM EDT [facility] MCHC 32.5 32 - 36 g/dL 09/28/2024 8:17 AM EDT [facility] RDW 16.4(H) 11.5 - 15 % 09/28/2024 8:17 AM EDT [facility] Platelet Count 115(L) 150 - 450 X10E9/L 09/28/2024 8:17 AM EDT [facility] MPV 10.7 7 - 12 fL 09/28/2024 8:17 AM EDT [facility] Neutrophils % 80.2 % 09/28/2024 8:17 AM EDT [facility] Comment:This is an appended report. These results have been appended to a previously preliminary verified report. Lymphocytes % 8.3 % 09/28/2024 8:17 AM EDT [facility] Comment:This is an appended report. These results have been appended to a previously preliminary verified report. Monocytes % 11.3 % 09/28/2024 8:17 AM [facility] Comment:This is an appended report. These results have been appended to a previously preliminary verified report. Eosinophils % 0.1 % 09/28/2024 8:17 AM [facility] Comment:This is an appended report. These results have been appended to a previously preliminary verified report. Basophils % 0.1 % 09/28/2024 8:17 AM [facility] Comment:This is an appended report. These results have been appended to a previously preliminary verified report. Neutrophils Absolute (A) 12.4(H) 1.5 - 6.6 10*3/uL 09/28/2024 8:17 AM [facility] Comment:This is an appended report. These results have been appended to a previously preliminary verified report. Lymphocytes Absolute 1.3 1.0 - 3.5 10*3/uL 09/28/2024 8:17 AM [facility] Comment:This is an appended report. These results have been appended to a previously preliminary verified report. Monocytes Absolute 1.8(H) 0.0 - 0.9 10*3/uL 09/28/2024 8:17 AM [facility] Comment:This is an appended report. These results have been appended to a previously preliminary verified report. Eosinophils Absolute 0.0 0.0 - 0.4 10*3/uL 09/28/2024 8:17 AM [facility] Comment:This is an appended report. These results have been appended to a previously preliminary verified report. Basophils Absolute 0.0 0.0 - 0.2 10*3/uL 09/28/2024 8:17 AM [facility] Comment:This is an appended report. These results have been appended to a previously preliminary verified report. Differential Type AUTOMATED DIFFERENTIAL 09/28/2024 8:17 AM [facility] Comment:This is an appended report. These results have been appended to a previously preliminary verified report. Blood 09/28/2024 6:43 AM EDT 09/28/2024 6:57 AM EDT us Sandie IBANEZ LAB BLOOD ORDERABLES Final Re sult Performing Organization Address City/[facility]/ZIP Co de Phone Number [facility] [address] [place] [address], * Phosphorus (09/28/2024 6:43 AM EDT) Only the most recent of9 resultswithin the time period is included. PHOSPHORUS 2.6 2.4 - 4.9 mg/dL 09/28/2024 7:30 AM EDT [facility] Blood 09/28/2024 6:43 AM EDT 09/28/2024 6:57 AM EDT us Sandie IBANEZ LAB BLOOD ORDERABLES Final Re sult Performing Organization Address City/[facility]/ZIP Co de Phone Number [facility] [address] [place] [address], [place] [phone] * Magnesium (09/28/2024 6:43 AM EDT) Only the most recent of16 resultswithin the time period is included. MAGNESIUM 1.8 1.8 - 2.6 mg/dL 09/28/2024 7:30 AM EDT [facility] Blood 09/28/2024 6:43 AM EDT 09/28/2024 6:57 AM EDT us Sandie IBANEZ LAB BLOOD ORDERABLES Final Re sult [facility] [address] [place] [address], [place] [phone] * (ABNORMAL) Ionized calcium (09/28/2024 6:43 AM EDT) Only the most recent of8 resultswithin the time period is included. IONIZED CALCIUM - ICAN 4.3(L) 4.5 - 5.3 mg/dL 09/28/2024 8:13 AM EDT [facility] Blood 09/28/2024 6:43 AM EDT 09/28/2024 7:00 AM EDT us Steffanie Pedraza Blake CENTRAL CONTROL ROOM OPERATOR-LOGGING TRACTOR OPERATOR LAB BLOOD ORDERABLES Fin al Result [facility] [address] [place] [address], [place] [phone] * (ABNORMAL) Basic Metabolic Panel (09/28/2024 6:43 AM EDT) Only the most recent of8 resultswithin the time period is included. SODIUM 140 134 - 146 mmol/L 09/28/2024 7:30 AM EDT [facility] POTASSIUM 4.4 3.5 - 5.0 mmol/L 09/28/2024 7:30 AM EDT [facility] CHLORIDE 106 98 - 109 mmol/L 09/28/2024 7:30 AM EDT [facility] CARBON DIOXIDE 23 22 - 32 mmol/L 09/28/2024 7:30 AM EDT [facility] ANION GAP 11 5 - 15 mmol/L 09/28/2024 7:30 AM EDT [facility] BLOOD UREA NITROGEN 26(H) 5 - 23 mg/dL 09/28/2024 7:30 AM EDT [facility] CREATININE 0.74 0.40 - 1.00 mg/dL 09/28/2024 7:30 AM EDT [facility] Comment:METHOD TRACEABLE TO IDMS STANDARD GLUCOSE 94 65 - 99 mg/dL 09/28/2024 7:30 AM EDT [facility] CALCIUM 8.8 8.5 - 10.5 mg/dL 09/28/2024 7:30 AM EDT [facility] EGFR Non-Race Dependent >90 >=60 ml/min/1.7 3sq.m 09/28/2024 7:30 AM EDT [facility] Comment: Reported eGFR is based on the CKD-EPI 2020 equation that does not use a race coefficient. Blood 09/28/2024 6:43 AM EDT 09/28/2024 6:57 AM EDT Sandie IBANEZ LAB BLOOD ORDERABLES Final Re sult [facility] [address] [place] [address], [place] [phone] * X-ray chest 1 view (09/27/2024 6:11 [...] MD on 09/27/2024 6:34 AM Anjelica Venegas CENTRAL CONTROL ROOM OPERATOR-LOGGING TRACTOR OPERATOR IMG DIAGNOSTIC IMAG ING ORDERABLES Final Result * Ionized magnesium (09/25/2024 12:23 PM EDT) Only the most recent of3 resultswithin the time period is included. IONIZED MAGNESIUM 0.56 0.45 - 0.74 mmol/L 09/25/2024 12:56 PM EDT [facility] Blood Venous blood / Unknown 09/25/2024 12:23 PM EDT 09/25/2024 12:38 PM EDT us Juni Espinal MD LAB BLOOD ORDERABLES Final Re sult [facility] [address] [place] [address], [place] [phone] * (ABNORMAL) Comprehensive metabolic panel (09/24/2024 3:31 AM EDT) Only the most recent of7 resultswithin the time period is included. SODIUM 141 134 - 146 mmol/L 09/24/2024 4:24 AM EDT [facility] POTASSIUM 4.3 3.5 - 5.0 mmol/L 09/24/2024 4:24 AM EDT [facility] CHLORIDE 108 98 - 109 mmol/L 09/24/2024 4:24 AM EDT [facility] CARBON DIOXIDE 23 22 - 32 mmol/L 09/24/2024 4:24 AM EDT [facility] ANION GAP 10 5 - 15 mmol/L 09/24/2024 4:24 AM EDT [facility] BLOOD UREA NITROGEN 27(H) 5 - 23 mg/dL 09/24/2024 4:24 AM EDT [facility] CREATININE 1.06(H) 0.40 - 1.00 mg/dL 09/24/2024 4:24 AM EDT [facility] Comment:METHOD TRACEABLE TO IDMS STANDARD GLUCOSE 120(H) 65 - 99 mg/dL 09/24/2024 4:24 AM EDT [facility] CALCIUM 8.7 8.5 - 10.5 mg/dL 09/24/2024 4:24 AM EDT [facility] TOTAL PROTEIN 6.3 6.0 - 8.0 g/dL 09/24/2024 4:24 AM EDT [facility] ALBUMIN 3.3 3.2 - 5.3 g/dL 09/24/2024 4:24 AM EDT [facility] ALKALINE PHOSPHATASE 61 39 - 130 U/L 09/24/2024 4:24 AM EDT [facility] AST 19 <=41 U/L 09/24/2024 4:24 AM EDT [facility] ALT 33(H) <=31 U/L 09/24/2024 4:24 AM EDT [facility] BILIRUBIN,TOTAL 0.4 0.3 - 1.2 mg/dL 09/24/2024 4:24 AM EDT [facility] EGFR Non-Race Dependent 62 >=60 ml/min/1.7 3sq.m 09/24/2024 4:24 AM EDT [facility] Comment: Reported eGFR is based on the CKD-EPI 2020 equation that does not use a race coefficient. Blood Venous blood / Unknown Central Line / Unknown 09/24/2024 3:31 AM EDT 09/24/2024 3:47 AM EDT Juni Espinal MD LAB BLOOD ORDERABLES Final Re sult [facility] [address] [place] [address], * CT brain without contrast (09/23/2024 7:19 [...] Hebert Farrar on 09/23/2024 7:38 PM Ibeth Brody PA-C IMG CT ORDERABLES Final Result * X-ray [...] - 99 mg/dL 09/23/2024 4:51 PM EDT [facility] Blood specimen (specimen) 09/23/2024 4:49 PM EDT 09/23/2024 4:51 PM EDT Xena Larios MD POINT OF CARE TEST ORDERABLE S Final Result [facility] [address] [place] [address], * Surgical Pathology (09/23/2024 3:06 PM EDT) Case Report Surgical Pathology Report Case: [id number] Authorizing Provider: Juni Espinal MD Collected: 09/23/2024 1506 Ordering Location: [facility] Received: 09/23/2024 1629 - Surgery Pathologist: lAyssa Renteria MD Specimen: Brain, BRAIN TUMOR 10/15/2024 10:59 AM EDT [facility] Final Diagnosis Brain, tumor, resection ([id number]; 09/23/2024): Glioblastoma, 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 See comment. COMMENT: Histologic sections demonstrate a highly cellular infiltrating astrocytoma. A majority of the tumor shows fibrillary morphology, with a minor component showing giant cell morphology. The tumor harbors brisk mitotic activity, microvascular proliferation, and necrosis, supporting a histologic diagnosis of glioblastoma. By immunohistochemistry, the tumor is IDH-wildtype. ANCILLARY STUDIES: Immunohistochemical stains were performed at [facility] on block E1 (IDH1-R132H, ATRX, p53, GFAP, [...] to be less than 1% (Neuro-Oncology. 2014 Mar;16(11):[id number]?83). Therefore, tissue is not being submitted for [...] is that of Anahi Franklin M.D., Ph.D., [facility], [place], [place]. Please see the complete pathology consult (scanned on 10/09/2024). 10/15/2024 10:59 AM [facility] at 0851 EDT Addendum Results of MGMT Promoter Methylation, Tumor dated 10/14/2024 are received from [address] and are as follows: Result Summary: MGMT PROMOTER METHYLATION ABSENT Result: Provided diagnosis: brain glioblastoma, IDH-wildtype (OUTREACH EDUCATOR WHO grade 4) Tumor tissue: Negative for [...] report (scanned on 10/15/2024). 10/15/2024 10:59 AM [facility] Addendum electronically signed by ALYSSA RENTERIA MD on 10/15/2024 at 1059 EDT Gross Description Received in formalin labeled LONZ, brain tumor is a 8.5 x 4.5 x 1.6 cm aggregate of pink-pinedo, rubbery and friable soft tissue fragments. The specimen is filtered and entirely submitted in cassettes A-L. (12, ns, [id number], m8.1) MW 10/15/2024 10:59 AM [facility] Preliminary Diagnosis Brain tumor, resection: High [...] molecular studies, is to be performed at [facility] for a final integrated diagnosis to follow. 10/15/2024 10:59 AM EDT [facility] Preliminary result electronically signed by ALYSSA RENTERIA [...] WHO Grade IV 10/15/2024 10:59 AM EDT [facility] Embedded Images 10/15/2024 10:59 AM EDT [facility] Tissue Brain structure / Unknown 09/23/2024 3:06 PM EDT 09/23/2024 4:29 PM EDT Comment:Pre-op diagnosis: brain tumor us Juni Espinal MD PATHOLOGY/CYTOLOGY ORDERABLES Edited Result - Final [facility] [address] [place] [address], [facility] [address] [facility] [place] [address], [place] * [place] ANES ART LINE (09/23/2024 2:06 PM EDT) Samia Britt SRNA - 09/23/2024 2:06 PM EDT ALFREDO Carr 09/23/2024 2:07 PM Art Line Performed by: ALFREDO Carr Authorized by: Stan Hedrick MD Patient Location: [place] Start Time: 09/23/2024 1:29 PM End Time: 09/23/2024 1:31 PM Service Provider: Stan Hedrick MD FASHION DIRECTOR PARTY PLAN SALES ( if not the service provider): BABAR [...] Well no arterial injury Stan Hedrick MD [place] ANESTHESIA Final Result * [place] AN ELECTIVE ENDOTRACHEAL AIRWAY (09/23/2024 1:28 PM EDT) Samia Britt SRNA - 09/23/2024 1:28 PM EDT ALFREDO Carr 09/23/2024 2:06 PM Airway Patient location during procedure: OR Urgency: Elective Date/Time: 09/23/2024 1:28 PM Airway not difficult IV In Situ: Peripheral General Information and Staff Service Provider: Stan Hedrick MD FASHION DIRECTOR PARTY PLAN SALES: BABAR Li Student: ALFREDO Carr Placed by: [...] included. ABO O 09/23/2024 8:17 AM EDT [facility] RH Positive 09/23/2024 8:17 AM EDT [facility] Blood Venous blood / Unknown 09/23/2024 7:00 AM EDT 09/23/2024 7:01 AM EDT Xena Larios MD BLOOD BANK TEST ORDERABLES F inal Result [facility] [address] [place] [address], [facility] [address] [place] [address], * Type and screen(includes indirect sinan) (09/22/2024 9:27 PM EDT) ABO O 09/22/2024 11:08 PM EDT [facility] RH Positive 09/22/2024 11:08 PM EDT [facility] Antibody Screen Negative 09/22/2024 11:08 PM EDT [facility] Blood Venous blood / Unknown Venipuncture / Unknown 09/22/2024 9:27 PM EDT 09/22/2024 9:27 PM EDT us Laura Gore CENTRAL CONTROL ROOM OPERATOR-LOGGING TRACTOR OPERATOR BLOOD BANK TEST ORDERAB LES Edited Result - Final [facility] [address] [place] [address], [facility] [address] [place] [address], * Electrolyte panel (09/22/2024 9:27 PM EDT) Only the most recent of9 resultswithin the time period is included. SODIUM 142 134 - 146 mmol/L 09/22/2024 11:03 PM EDT [facility] POTASSIUM 4.5 3.5 - 5.0 mmol/L 09/22/2024 11:03 PM EDT [facility] CHLORIDE 109 98 - 109 mmol/L 09/22/2024 11:03 PM EDT [facility] CARBON DIOXIDE 22 22 - 32 mmol/L 09/22/2024 11:03 PM EDT [facility] ANION GAP 11 5 - 15 mmol/L 09/22/2024 11:03 PM EDT [facility] Blood Venous blood / Unknown Venipuncture / Unknown 09/22/2024 9:27 PM EDT 09/22/2024 9:27 PM EDT us Ta Everett MD LAB BLOOD ORDERABLES Final Resul t [facility] [address] [place] [address], [place] [phone] * Echo complete W/ contrast (09/22/2024 4:34 [...] Velocity Ratio 0.98 XCELERA Left Ventricle Mass 130.46263 [id number] g XCELERA Interventricular Septum Diastolic Thickness by [...] habitus and unable to lay left lateral. Melo Hoyos PA-C CV ECHO ORDERABLES Final Re sult * ECG 12 lead (09/22/2024 10:49 AM EDT) Only the most recent of4 resultswithin the time period is included. 09/22/2024 10:4 9 AM EDT [facility] TRACEMASTERVUE - 09/23/2024 4:18 PM EDT Anjelica Venegas APRN-RUBINA ECG ORDERABLES Fin al Result Performing Organization Address City/[facility] Co de Phone Number [facility] * Vancomycin, random (09/22/2024 6:14 AM EDT) Only the most recent of3 resultswithin the time period is included. VANCOMYCIN 16.5 5.0 - 40.0 ug/mL 09/22/2024 7:16 AM EDT [facility] Blood Venous blood / Unknown 09/22/2024 6:14 AM EDT 09/22/2024 6:14 AM EDT [facility] - 09/22/2024 7:16 AM EDT Peak 30-40 ug/mL Trough 5-20 ug/ml Anjelica Venegas APRNLOGGING TRACTOR OPERATOR LAB BLOOD ORDERABLE S Final Result [facility] [address] [place] [address], [place] [phone] * Clinical Pathology Review (09/21/2024 3:31 PM EDT) Case Report Clinical Pathology Report Case: [id number] Authorizing Provider: Ta Everett MD Collected: 09/21/2024 1531 Ordering Location: [facility] Received: 09/21/2024 1531 - GEN 9 ICU Pathologist: Cecy Altman MD Specimen: Blood, Venous 09/23/2024 11:59 AM EDT [facility] Final Diagnosis Prominent band in beta region, recommend immunofixation for further evaluation. Hypoalbuminemia with increase in acute phase reactants. 09/23/2024 11:59 AM EDT [facility] at 1159 EDT Venous blood / Unknown 09/21/2024 3:31 PM EDT 09/21/2024 3:31 PM EDT us Ta Everett MD PATHOLOGY/CYTOLOGY ORDERABLES Fi nal Result [facility] [address] [place] [address], [place] [phone] * CT abdomen and pelvis without contrast [...] Bipin Mejia MD on 09/20/2024 3:53 PM Roman Jones MD IMG CT ORDERABLES Final Result * Blood culture #2 (09/20/2024 7:33 AM EDT) Only the most recent of4 resultswithin the time period is included. CULTURE RESULTS NO GROWTH 5 DAYS 09/26/2024 3:12 PM EDT [facility] Blood Venous blood / Unknown 09/20/2024 7:33 AM EDT 09/20/2024 7:33 AM EDT Narrative [facility] - 09/26/2024 3:12 PM EDT Suboptimal volume of blood collected, Results may be affected. Steffanie Lozano CENTRAL CONTROL ROOM OPERATOR-LOGGING TRACTOR OPERATOR MICROBIOLOGY - GENERAL O RDERABLES Final Result [facility] [address] [place] [address], [place] [phone] * MR brain synaptive protocol (09/20/2024 1:06 [...] for surgical planning. I favor a primary OUTREACH EDUCATOR neoplasm such as a glioblastoma or astrocytoma. Metastasis can also present in this fashion. 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 I favor aprimary OUTREACH EDUCATOR neoplasm such as a glioblastoma or astrocytoma. Metastasis canalso present in this fashion. Finalized by Juan Antonio Lindquist MD on 09/20/2024 7:17 AM us Chip Zarate CENTRAL CONTROL ROOM OPERATOR-LOGGING TRACTOR OPERATOR IMG MRI ORDERABLES Fin al Result * [...] Mao Varner MD on 09/19/2024 6:46 AM Ta Everett MD [facility] US ORDERABLES Final Result * (ABNORMAL) Procalcitonin (09/19/2024 4:12 AM EDT) PROCALCITONIN 0.12(H) <0.05 ng/mL 09/19/2024 6:16 AM EDT [facility] Blood 09/19/2024 4:12 AM EDT 09/19/2024 5:15 AM EDT Narrative [facility] - 09/19/2024 6:16 AM EDT <0.50 ng/mL - Low risk of severe sepsis and/or septic shock. <2.00 ng/mL - Recommend retesting within 6-24 hours. >2.00 ng/mL - High risk of sepsis and/or septic shock. Sandie IBANEZ LAB BLOOD ORDERABLES Final Re sult [facility] [address] [place] [address], [place] [phone] * Glomerular basement membrane IgG AB (09/19/2024 4:12 AM EDT) GBM IGG AB <0.2 <1.0 AI 09/21/2024 9:03 AM EDT [facility] Blood 09/19/2024 4:12 AM EDT 09/19/2024 5:15 AM EDT Ta Everett MD LAB BLOOD ORDERABLES Final Resul t Performing Organization Address City/[facility]/ZIP Co de Phone Number [facility] [address] [place] [address], * Thyroid profile includes TSH FT4 (09/19/2024 4:12 AM EDT) FREE T4 0.86 0.61 - 1.60 ng/dL 09/19/2024 6:16 AM EDT [facility] TSH 2.80 0.49 - 4.67 uIU/mL 09/19/2024 6:16 AM EDT [facility] Blood 09/19/2024 4:12 AM EDT 09/19/2024 5:15 AM EDT Sandie IBANEZ LAB BLOOD ORDERABLES Final Re sult Performing Organization Address City/[facility]/ZIP Co de Phone Number [facility] [address] [place] [address], * Proteinase 3 AB PR3 (09/19/2024 4:12 AM EDT) PROTEINASE 3 IGG AB <0.2 <1.0 AI 09/21/2024 9:03 AM EDT [facility] Blood 09/19/2024 4:12 AM EDT 09/19/2024 5:15 AM EDT Ta Everett MD LAB BLOOD ORDERABLES Final Resul t Performing Organization Address City/[facility]/ZIP Co de Phone Number [facility] [address] [place] [address], * Myeloperoxidase AB (09/19/2024 4:12 AM EDT) MYELOPEROXIDASE AB <0.2 <1.0 AI 2024 9:03 AM EDT [facility] Blood 09/19/2024 4:12 AM EDT 09/19/2024 5:15 AM EDT us Ta Everett MD LAB BLOOD ORDERABLES Final Resul t Performing Organization Address City/[facility]/ZIP Co de Phone Number [facility] [address] [place] [address], [place] [phone] * (ABNORMAL) Complement profile (C3 AND C4) (09/19/2024 4:12 AM EDT) COMPLEMENT C3 196(H) 86 - 184 mg/dL 09/19/2024 6:16 AM EDT [facility] COMPLEMENT C4 42 16 - 47 mg/dL 09/19/2024 6:16 AM EDT [facility] Blood 09/19/2024 4:12 AM EDT 09/19/2024 5:15 AM EDT us Ta Everett MD LAB BLOOD ORDERABLES Final Resul t Performing Organization Address [place]/[facility] Co de Phone Number [facility] [address] [place] [address], [place] [phone] * Iron and TIBC (09/19/2024 4:12 AM EDT) IRON 56 50 - 170 ug/dL 09/19/2024 9:58 AM EDT [facility] TRANSFERRIN 221 168 - 336 mg/dL 09/19/2024 9:58 AM EDT [facility] IRON BINDING 309 250 - 425 ug/dL 09/19/2024 9:58 AM EDT [facility] IRON SATURATION 18 15 - 50 % SATURATION 09/19/2024 9:58 AM EDT [facility] Blood 09/19/2024 4:12 AM EDT 09/19/2024 5:15 AM EDT us Ta Everett MD LAB BLOOD ORDERABLES Final Resul t Performing Organization Address City/[facility] Co de Phone Number [facility] [address] [place] [address], * COLE Screen w/ Reflex (09/19/2024 4:12 AM EDT) COLE SCREEN W/REFLEX Negative Negative 09/21/2024 9:03 AM EDT [facility] Blood 09/19/2024 4:12 AM EDT 09/19/2024 5:15 AM EDT Narrative [facility] - 09/21/2024 9:03 AM EDT Testing performed using multiplex flow immunoassay. Eleven difference antigens associated with systemic autoimmunie diseases (dsDNA, Sm, Sm/BULK SUGAR HANDLER, BULK SUGAR HANDLER, Chromatin, SSA, SSB, Lilian-1, Sc170, Ribo P, Centromere B) are included in this sreening tests. Ta Everett MD LAB BLOOD ORDERABLES Final Resul t Performing Organization Address [place]/[facility] Co de Phone Number [facility] [address] [place] [address], * (ABNORMAL) Protein electrophoresis, serum (09/19/2024 4:12 AM EDT) TOTAL PROTEIN 6.4 6.0 - 8.0 g/dL 09/23/2024 5:05 PM EDT [facility] ALPHA 1 GLOBULIN 0.6(H) 0.1 - 0.4 g/dL 09/23/2024 5:05 PM EDT [facility] ALPHA 2 GLOBULIN 1.2(H) 0.4 - 1.1 g/dL 09/23/2024 5:05 PM EDT [facility] BETA GLOBULIN 1.0 0.5 - 1.2 g/dL 09/23/2024 5:05 PM EDT [facility] GAMMA GLOBULIN 0.9 0.5 - 1.6 g/dL 09/23/2024 5:05 PM EDT [facility] Protein Electrophoresis Interp See Pathology Report 09/23/2024 5:05 PM EDT [facility] Albumin 2.8(L) 3.4 - 5.3 g/dL 09/23/2024 5:05 PM EDT [facility] Blood 09/19/2024 4:12 AM EDT 09/19/2024 5:15 AM EDT us Ta Everett MD LAB BLOOD ORDERABLES Final Resul t Performing Organization Address City/[facility]/ZIP Co de Phone Number [facility] [address] [place] [address], [place] [phone] * Myoglobin, serum (09/19/2024 4:12 AM EDT) Only the most recent of12 resultswithin the time period is included. SERUM MYOGLOBIN 33.4 14.3 - 65.8 ng/mL 09/19/2024 5:56 AM EDT [facility] Blood 09/19/2024 4:12 AM EDT 09/19/2024 5:15 AM EDT us Sandie IBANEZ LAB BLOOD ORDERABLES Final Re sult Performing Organization Address [place]/[facility]/ZIP Co de Phone Number [facility] [address] [place] [address], [place] [phone] * Folate (09/19/2024 4:12 AM EDT) FOLIC ACID 13.1 >5.8 ng/mL 09/19/2024 10:37 AM EDT [facility] Blood 09/19/2024 4:12 AM EDT 09/19/2024 5:15 AM EDT us Ta Everett MD LAB BLOOD ORDERABLES Final Resul t Performing Organization Address City/[facility]/ZIP Co de Phone Number [facility] [address] [place] [address], [place] [phone] * Ferritin (09/19/2024 4:12 AM EDT) FERRITIN 130 11 - 307 ng/mL 09/19/2024 10:34 AM EDT [facility] Blood 09/19/2024 4:12 AM EDT 09/19/2024 5:15 AM EDT us Ta Everett MD LAB BLOOD ORDERABLES Final Resul t [facility] [address] [place] [address], * Vitamin B12 (09/19/2024 4:12 AM EDT) VITAMIN B12 517 180 - 914 pg/mL 09/19/2024 10:38 AM EDT [facility] Blood 09/19/2024 4:12 AM EDT 09/19/2024 5:15 AM EDT us Ta Everett MD LAB BLOOD ORDERABLES Final Resul t Performing Organization Address [place]/[facility]/ZIP Co de Phone Number [facility] [address] [place] [address], * (ABNORMAL) CK Total (09/19/2024 4:12 AM EDT) Only the most recent of13 resultswithin the time period is included. CPK 18(L) 24 - 170 U/L 09/19/2024 6:16 AM EDT [facility] Blood 09/19/2024 4:1 2 AM EDT 09/19/2024 5:15 AM EDT us Sandie IBANEZ LAB BLOOD ORDERABLES Final Re sult Performing Organization Address City/[facility]/ZIP Co de Phone Number [facility] [address] [place] [address], [place] [phone] * (ABNORMAL) Blood Gas, Arterial (09/19/2024 3:47 AM EDT) Sample type ARTERIAL 09/19/2024 3:52 AM EDT [facility] pH, Arterial 7.364 7.350 - 7.450 09/19/2024 3:52 AM EDT [facility] pCO2, Arterial 29.4(L) 35.0 - 45.0 mmHg 09/19/2024 3:52 AM EDT [facility] PO2, Arterial 78(L) 80 - 100 mmHg 09/19/2024 3:52 AM EDT [facility] Base, Deficit -8.0(L) 0.0 - 2.0 mmol/L 09/19/2024 3:52 AM EDT [facility] HCO3, Arterial 16.8(L) 22.0 - 26.0 mmol/L 09/19/2024 3:52 AM EDT [facility] %O2 Saturation, Arterial 95.0 >90.0 % 09/19/2024 3:52 AM EDT [facility] Quinten's test Pass 09/19/2024 3:52 AM EDT [facility] SPO2 78 % 09/19/2024 3:52 AM EDT [facility] Sample site L Rad 09/19/2024 3:52 AM EDT [facility] Source Of Oxygen Room Air 09/19/2024 3:52 AM EDT [facility] Arterial site (attribute) (Blood, Arterial) 09/19/2024 3:47 AM EDT 09/19/2024 3:52 AM EDT us Lewis Botello DO LAB BLOOD ORDERABLES Final Resul t [facility] [address] [place] [address], [place] * (ABNORMAL) POCT Nursing Urine Macroscopic UA (09/19/2024 1:37 AM EDT) POC Urine Specific [place] 1.020 1.010, 1.015, 1.020, 1.025 09/19/2024 1:39 AM EDT [facility] POC Urine Leukocyte Esterase Negative Negative 09/19/2024 1:39 AM EDT [facility] POC Urine Nitrite Negative Negative 09/19/2024 1:39 AM EDT [facility] POC Urine pH 5.5 5.0, 6.0, 6.5, 7.0, 7.5, 8.0, 8.5, 5.5 09/19/2024 1:39 AM EDT [facility] POC Urine Protein 100 mg/dL(A) Negative 09/19/2024 1:39 AM EDT [facility] POC Urine Glucose Negative Negative 09/19/2024 1:39 AM EDT [facility] POC Urine Ketones Negative Negative 09/19/2024 1:39 AM EDT [facility] POC Urine Urobilinogen 0.2 E.U./dL 0.2 E.U./dL, 1.0 E.U./dL 09/19/2024 1:39 AM EDT [facility] POC Urine Bilirubin Negative Negative 09/19/2024 1:39 AM EDT [facility] POC Urine Blood/HGB Large(A) Negative 09/19/2024 1:39 AM EDT [facility] Urine 09/19/2024 1:37 AM EDT 09/19/2024 1:39 AM EDT us Lewis Botello DO POINT OF CARE TEST ORDERABLES Fi nal Result [facility] [address] [place] [address], * (ABNORMAL) BLOOD CULTURE IDENTIFICATION PANEL (09/19/2024 1:23 AM EDT) Staphylococcus epidermidis PCR Detected(A) Not Detected 09/19/2024 8:31 PM EDT [facility] mecA/C gene PCR Detected (Methicilli n Resistance) (A) Not Detected 09/19/2024 8:31 PM EDT [facility] Blood Venous blood / Unknown 09/19/2024 1:23 AM EDT 09/19/2024 1:35 AM EDT Ken Ontiveros MD MICROBIOLOGY - GENERAL ORDERABL ES Final Result Performing Organization Address City/[facility]/ZIP Co de Phone Number [facility] [address] [place] [address], [place] [phone] * Troponin I, High Sensitivity 1 Hour (09/19/2024 1:23 AM EDT) Only the most recent of2 resultswithin the time period is included. TROPONIN I, HIGH SENSITIVITY 10 <16 ng/L 09/19/2024 1:57 AM EDT [facility] Blood Venous blood / Unknown 09/19/2024 1:23 AM EDT 09/19/2024 1:27 AM EDT Ken Ontiveros MD LAB BLOOD ORDERABLES Final Resu lt [facility] [address] [place] [address], [place] * (ABNORMAL) Protein creat ratio (09/19/2024 1:23 AM EDT) URINE PROTEIN, RANDOM (MG/L) 1,350(H) <120 mg/L 09/19/2024 3:49 AM EDT [facility] URINE CREATININE,RDM 83.54 mg/dL 09/19/2024 3:49 AM EDT [facility] U/PRO/SOLE SPLITTER RATIO CALC 1.62(H) <=0.20 09/19/2024 3:49 AM EDT [facility] Urine 09/19/2024 1:23 AM EDT 09/19/2024 3:14 AM EDT Narrative [facility] - 09/19/2024 3:49 AM EDT Nephrotic Syndrome is associated with ratios >3.5 us Ta Everett MD URINE ORDERABLES Final Result [facility] [address] [place] [address], [place] [phone] * Extra Urine (09/19/2024 1:23 AM EDT) Extra Tube Auto Resulted 09/19/2024 4:01 AM EDT [facility] Urine 09/19/2024 1:23 AM EDT 09/19/2024 3:14 AM EDT us Ken Ontiveros MD URINE ORDERABLES Final Result Performing Organization Address City/[facility]/ZIP Co de Phone Number [facility] [address] [place] [address], [place] [phone] * Urine Creatinine,random (09/19/2024 1:23 AM EDT) URINE CREATININE,RDM 83.54 mg/dL 09/19/2024 3:49 AM EDT [facility] Urine 09/19/2024 1:23 AM EDT 09/19/2024 3:14 AM EDT us Ta Everett MD URINE ORDERABLES Final Result Performing Organization Address City/[facility]/ZIP Co de Phone Number [facility] [address] [place] [address], [place] [phone] * Sodium, urine, random (09/19/2024 1:23 AM EDT) URINE SODIUM,RANDOM 69 mmol/L 09/19/2024 3:49 AM EDT [facility] Urine 09/19/2024 1:23 AM EDT 09/19/2024 3:14 AM EDT us Ta Everett MD URINE ORDERABLES Final Result [facility] [address] [place] [id number], * (ABNORMAL) Urinalysis (09/19/2024 1:23 AM EDT) COLOR Colorless Yellow, Colorless 09/19/2024 7:33 AM EDT [facility] TURBIDITY Hazy(A) Clear 09/19/2024 7:33 AM EDT [facility] SPECIFIC GRAVITY 1.013 1.003 - 1.035 09/19/2024 7:33 AM EDT [facility] NITRITE Negative Negative 09/19/2024 7:33 AM EDT [facility] PH,URINE 5.5 5.0 - 8.5 09/19/2024 7:33 AM EDT [facility] LEUKOCYTE ESTERASE Small(A) Negative 09/19/2024 7:33 AM EDT [facility] PROTEIN 70 mg/dL(A) Negative 09/19/2024 7:33 AM EDT [facility] KETONES (URINE) Negative Negative 7:33 AM EDT [facility] UROBILINOGEN <1.1 eu/dL <1.1 eu/dL 09/19/2024 7:33 AM EDT [facility] BILIRUBIN (URINE) Negative Negative 09/19/2024 7:33 AM EDT [facility] BLOOD/HGB Moderate(A) Negative 09/19/2024 7:33 AM EDT [facility] MUCOUS Present(A) None 09/19/2024 7:33 AM EDT [facility] R.B.CELLS 17(H) 0 - 5 09/19/2024 7:33 AM EDT [facility] SQUAMOUS EPITHELIUM 1 0 - 5 09/19/2024 7:33 AM EDT [facility] W.B.CELLS 39(H) 0 - 5 09/19/2024 7:33 AM EDT [facility] GLUCOSE (URINE) Negative Negative 7:33 AM EDT [facility] Urine 09/19/2024 1:23 AM EDT 09/19/2024 3:14 AM EDT Narrative [facility] - 09/19/2024 7:33 AM EDT Urine received without preservative. Delays in transport may affect results. Interpret with caution. A clinical correlation is recommended. us Ta Everett MD URINE ORDERABLES Final Result [facility] [address] [place] [address], [place] [phone] * Troponin I, High Sensitivity 0 Hour (09/19/2024 12:26 AM EDT) TROPONIN I, HIGH SENSITIVITY 11 <16 ng/L 09/19/2024 1:07 AM EDT [facility] Blood Venous blood / Unknown 09/19/2024 12:26 AM EDT 09/19/2024 12:40 AM EDT Ken Ontiveros MD LAB BLOOD ORDERABLES Final Resu lt [facility] [address] [place] [address], [place] * Lactate w/ Reflex (09/19/2024 12:26 AM EDT) LACTATE W/REFLEX 0.7 0.4 - 2.0 mmol/L 09/19/2024 1:49 AM EDT [facility] Blood Venous blood / Unknown 09/19/2024 12:26 AM EDT 09/19/2024 12:42 AM EDT Narrative [facility] - 09/19/2024 1:49 AM EDT Result did not trigger repeat Lactate, re-order if needed. us Ken Ontiveros MD LAB BLOOD ORDERABLES Final Resu lt [facility] [address] [place] [address], * APTT (09/19/2024 12:26 AM EDT) Only the most recent of2 resultswithin the time period is included. APTT 28 26 - 37 sec 09/19/2024 1:17 AM EDT [facility] Blood Venous blood / Unknown 09/19/2024 12:26 AM EDT 09/19/2024 12:39 AM EDT Ken Ontiveros MD LAB BLOOD ORDERABLES Final Resu lt Performing Organization Address City/[facility]/ZIP Co de Phone Number [facility] [address] [place] [address], * (ABNORMAL) Protime & INR (09/19/2024 12:26 AM EDT) Only the most recent of2 resultswithin the time period is included. PROTIME 14.0(H) 9.8 - 13.2 sec 09/19/2024 1:17 AM EDT [facility] INR 1.2 0.9 - 1.2 09/19/2024 1:17 AM EDT [facility] Blood Venous blood / Unknown 09/19/2024 12:26 AM EDT 09/19/2024 12:39 AM EDT us Ken Ontiveros MD LAB BLOOD ORDERABLES Final Resu lt [facility] [address] [place] [address], * Hemoglobin A1c (09/19/2024 12:26 AM EDT) HEMOGLOBIN A1C 5.4 4.4 - 5.6 % 09/19/2024 6:15 AM EDT [facility] Comment: ADA Guidelines Result HgbA1c Normal : less than 5.7 % Prediabetes : 5.7 % to 6.4 % Diabetes : > 6.4 % Use with caution in patients with abnormal hemoglobin variants as the half-life of red blood cells and in vivo glycation rates are affected. EST. AVERAGE GLUCOSE 108 mg/dL 09/19/2024 6:15 AM EDT [facility] Blood Venous blood / Unknown 09/19/2024 12:26 AM EDT 09/19/2024 12:39 AM EDT Sandie IBANEZ LAB BLOOD ORDERABLES Final Re sult [facility] [address] [place] [address], * Ammonia (09/19/2024 12:26 AM EDT) AMMONIA 24 18 - 72 umol/L 09/19/2024 1:48 AM EDT [facility] Blood Venous blood / Unknown 09/19/2024 12:26 AM EDT 09/19/2024 12:43 AM EDT Kne Ontiveros MD LAB BLOOD ORDERABLES Final Resu lt [facility] [address] [place] [address], * Potassium (08/31/2024 11:05 AM EDT) Only the most recent of2 resultswithin the time period is included. Potassium, Bld 4.0 3.5 - 5.0 mmol/L 08/31/2024 11:28 AM EDT [facility] PLASMA 08/31/2024 11:0 5 AM EDT 08/31/2024 11:09 AM EDT us Richard Guadalupe MD LAB BLOOD ORDERABLES Final Res ult KIERSTEN [facility] [address] [facility] [place] [address] * (ABNORMAL) Lipid profile (08/29/2024 12:52 PM EDT) Cholesterol 151 150 - 200 mg/dL 08/29/2024 9:16 PM EDT [facility] Triglycerides 112 27 - 150 mg/dL 08/29/2024 9:16 PM EDT [facility] HDL Cholesterol 29(L) >39 mg/dL 9:16 PM EDT [facility] Comment: HDL <40 mg/dL - High Risk HDL > or = 40mg/dL- Desirable HDL >60 mg/dL - Negative Risk VLDL 22 0 - 30 mg/dL 08/29/2024 9:16 PM EDT [facility] LDL (calc) 100 <130 mg/dL 08/29/2024 9:16 PM EDT [facility] Comment: LDL <100 mg/dL - Desirable LDL >160 mg/dL - High Risk Cholesterol:HDL Ratio 5.2(H) 1.0 - 5.0 08/29/2024 9:16 PM EDT [facility] PL[facility]MA 08/29/2024 12:5 2 PM EDT 08/29/2024 1:02 PM EDT us Larry Coles CENTRAL CONTROL ROOM OPERATOR-LOGGING TRACTOR OPERATOR LAB BLOOD ORDERABLES Fin al Result [facility] [address] [place] [address] * POCT Ionized Calcium (08/29/2024 7:58 AM EDT) Portable ICA 4.6 4.5 - 5.3 mg/dL 08/29/2024 8:00 AM EDT [facility] Blood / Unknown 08/29/2024 7 :58 AM EDT 08/29/2024 8:00 AM EDT us Richard Guadalupe MD POINT OF CARE TEST ORDERABLES Final Result Performing Organization Address [place]/[facility] Co de Phone Number [address], [place] [address] * (ABNORMAL) Troponin I, High Sensitivity 3 Hour (08/28/2024 11:50 PM EDT) 3 Hour Trop I, High Sensitivity 42(H) <16 ng/L 08/29/2024 12:30 AM EDT [facility] Comment: Elevations of hs-Troponin may be due to causes other than myocardial ischemia. Recommend serial hs-Troponin testing be performed. For the initial evaluation and management of chest pain patients, refer to the algorithms linked below. Emergency Patient: [email or web address] Inpatient: [email or web address] Blood Serum / Unknown 08/28/2024 1 1:50 PM EDT 08/29/2024 12:02 AM EDT us Gia Montejo CENTRAL CONTROL ROOM OPERATOR-LOGGING TRACTOR OPERATOR LAB BLOOD ORDERABLES Alisha l Result Performing Organization Address City/[facility]/ZIP Co de Phone Number [address], [place] [address] * CT angiogram chest (08/28/2024 12:34 PM [...] for acute or suspicious pathology in the grwdu-lc-ljzm. The trachea and bronchi are patent. No [...] negativefor acute or suspicious pathology in the hgpzl-zg-pluj. The trachea and bronchi are patent. No [...] Reji Saini MD on 08/28/2024 12:40 PM [employer] Gabby Haro APRN-RUBINA IMG CT ORDERABLES Final Re sult * (ABNORMAL) Troponin I, High Sensitivity (08/28/2024 10:34 AM EDT) Troponin I, High Sensitivity 29(H) <16 ng/L 08/28/2024 11:05 AM EDT [facility] Comment: Elevations of hs-Troponin may be due to causes other than myocardial ischemia. Recommend serial hs-Troponin testing be performed. For the initial evaluation and management of chest pain patients, refer to the algorithms linked below. Emergency Patient: [email or web address] Inpatient: [email or web address] Blood Serum / Unknown 08/28/2024 1 0:34 AM EDT 08/28/2024 10:36 AM EDT [employer] Gabby Haro CENTRAL CONTROL ROOM OPERATOR-LOGGING TRACTOR OPERATOR LAB BLOOD ORDERABLES Final Result Performing Organization Address [place]/[facility] Co de Phone Number [address] [address] * (ABNORMAL) D-Dimer (08/28/2024 10:34 AM EDT) Pathologist [facility] D-dimer 5,157(H) <255 ng/mL DDU 08/28/2024 11:17 AM EDT [facility] Comment: Results >=255ng/mL DDU: Results may [...] :34 AM EDT 08/28/2024 10:36 AM EDT Result [facility] CENTRAL CONTROL ROOM OPERATOR-LOGGING TRACTOR OPERATOR LAB BLOOD ORDERABLES Final Result Performing Organization Address [place]/[facility] Co de Phone Number [address] [address] * SARS/FLU A+B/RSV by NAAT/Molecular (M4RT Collection Tube) (08/28/2024 10:32 AM EDT) [facility] FLU A PCR Negative Negative^Ne gative 08/28/2024 11:42 AM EDT [facility] FLU B PCR Negative Negative^Ne gative 08/28/2024 11:42 AM EDT [facility] RSV by PCR Negative Negative^Ne gative 08/28/2024 11:42 AM EDT [facility] SARS CoV 2 BY PCR Not Detected Not Detected^No t Detected 08/28/2024 11:42 AM EDT [facility] Comment: NOTE The Xpert Xpress SARS-CoV-2/Flu/RSV Plus [...] operators who are performing tests using either EnzySurge DX or Inkvite systems and is limited to laboratories that [...] specimen repeat. Fact Sheet for Healthcare Providers: https://www.fda.gov/media/898209/download Fact Sheet for Patients: https://www.fda.gov/media/424646/download Nasopharyngeal structure / Unknown 08/28/2024 10:32 AM EDT 08/28/2024 10:37 AM EDT Gabby Haro CENTRAL CONTROL ROOM OPERATOR-LOGGING TRACTOR OPERATOR MICROBIOLOGY - GENERAL ORD ERABLES Final Result [address], [place] [address] from Last 3 Months Insurance [employer] MEDICARE [employer] MEDICARE Advance Directives * Full Code (Latest Code Status on File) Date Activated Date Inactivated Comments 09/19/2024 4:15 AM 09/29/2024 2:25 AM * Full Code Date Activated Date Inactivated Comments 08/28/2024 2:20 PM 09/01/2024 6:45 PM Care Teams Material Inspector Relationship Specialty Start Date End Date Kristin Gracia, CENTRAL CONTROL ROOM OPERATOR-LOGGING TRACTOR OPERATOR PCP - General Nurse Practitioner 08/28/24
--- OUTSIDE RECORDS SUMMARY | 2024-11-24 18:39 | XMS_ITS | Encounter Summary ---
Author Organization [facility] Address [facility] [id number] [address] [place] [address] Care Team Providers Care Dust Operator Name Role Phone HarveybereniceKristin perry APRN-CASINO CHANGE ATTENDANT Primary Care Provider Encounter Details Date Type Department Care Team (Late st Contact Info) Description 11/12/2024 Documentation [facility] Oncology - Radiation Oncology [address] [place] [phone] Nancy Hernandez, RN Social History Tobacco Use Types Packs/Day Years Used Date Smoking Tobacco: Some Days Cigarettes Smokeless Tobacco: Never Alcohol Use Standard Drinks/Week Comments Never 0 (1 standard drink = 0.6 oz pur e alcohol) [facility] Utilities Answer Date Recorded In the past [...] Progress Notes * Nancy Hernandez RN - 11/12/2024 12:17 PM EDT RN attempted to contact Pt daughter Anna and son Aman per request of patient and Dr Yo to further discuss case and treatment planning; No answer on either line; left vm requesting return call documented in this encounter Plan of Treatment [...] on filedocumented in this encounter Care Teams Dust Operator Relationship Specialty Start Date End Date Kristin Gracia, ELAN-CASINO CHANGE ATTENDANT PCP - General Nurse Practitioner 08/28/24 documented as of this encounter
--- OUTSIDE RECORDS SUMMARY | 2024-11-24 18:39 | XMS_ITS | Encounter Summary ---
Author Organization [facility] Address [address] [place] [address] Care Team Providers Care Db2 Dba Name Role Phone HarveyberenicejesicaKristin beltran FLOW COORDINATOR Unavailable [phone] Maxim Lanza MD Primary Care Provider [phone] Encounter Details Date Type Department Care Team (Late st Contact Info) Description 02/28/2024 Abstract [facility] [address] [place] [phone] Quyen Garcia RN [address] [place], [place] Social History Tobacco Use Types Packs/Day [...] often do you attend chur ch or mandaeism services? 1 to 4 times per year [...] Recorded Patient Health Questionnaire-2 Score 2 12/02/2023 [facility] ional [facility] - Occupational Stress Questionnaire Answer Date Recorded [...] documented as of this encounter Care Teams Db2 Dba Relationship Specialty Start Date End Date Maxim Lanza MD [address] [place] [address] PCP - General Family Medicine 07/15/23 Kristin Gracia NP [address] [place] [address] Primary Care Provider Family Medicine 05/20/22 documented as of this encounter
--- OUTSIDE RECORDS SUMMARY | 2024-11-24 18:39 | XMS_ITS | Encounter Summary ---
Author Organization [employer] tem Address [facility] [id number] [address] [place] [address] Care Team Providers Care Top Stop Attacher Name Role Phone Harveyberenicevicky Kristin Tevin ANSARI-TATTOO ARTIST Primary Care Provider Encounter Details Date Type Department Care Team (Late st Contact Info) Description 11/24/2024 Documentation Meera Albarado [facility] - Medical Oncology [address] [place] [address] Priyanka Velez, RN Social History Tobacco Use Types Packs/Day Years Used Date Smoking Tobacco: Some Days Cigarettes Smokeless Tobacco: Never Alcohol Use Standard Drinks/Week Comments Never 0 (1 standard drink = 0.6 oz pur e alcohol) [facility] Utilities Answer Date Recorded In the [...] as of this encounter Progress Notes * Priyanka Velez RN - 11/24/2024 2:40 PM EDT Received a call from nurse Jessica at [facility]. She has informed our office that patient's Temodar will be delivered next week and wanted to know what day does patient need to start. Instructed that medication will not start until radiation starts. Patient will take Temodar every day prior to her radiation appointments, Saturday through Saturday. Informed that our office will call with instructions again once radiation plan is finalized and start date is set. Jessica verbalized understanding, they will hold on to medication and await call from our office with exact start date and instructions. documented in this encounter Plan of Treatment [...] on filedocumented in this encounter Care Teams Top Stop Attacher Relationship Specialty Start Date End Date Kristin Gracia, PATIENT RELATIONS DIRECTOR-TATTOO ARTIST PCP - General Nurse Practitioner 08/28/24 documented as of this encounter
--- OUTSIDE RECORDS SUMMARY | 2024-11-24 18:39 | XMS_ITS | Encounter Summary ---
Author Organization [facility] Address [facility] [id number] [address] [place] [address] Care Team Providers Care Testing Analyst Name Role Phone HarveyKristin yu Tevin FLY TIER-BAKER SECOND Primary Care Provider Reason for Visit * Reason Onset Date Comments office note 11/11/2024 Encounter Details Date Type Department Care Team (Late Contact Info) Description 11/11/2024 Telephone [facility] NeuroSurgery [address] [place] [address] Anya Soni, drug abuse resistance education officer note Social History Tobacco Use Types Packs/Day Years Used Date Smoking Tobacco: Some Days Cigarettes Smokeless Tobacco: Never Alcohol Use Standard Drinks/Week Comments Never 0 (1 standard drink = 0.6 oz pur e alcohol) [facility] Utilities Answer Date Recorded In [...] encounter Miscellaneous Notes * Telephone Encounter - Anya Soni RN - 11/11/2024 11:19 AM EDT Dia from [facility] calls asking that the office note be sent to the [facility] so they can see the plan of care. Faxed as per request. documented in this encounter Plan of Treatment [...] on filedocumented in this encounter Care Teams Testing Analyst Relationship Specialty Start Date End Date Kristin Gracia, FLY TIER-BAKER SECOND PCP - General Nurse Practitioner 08/28/24 documented as of this encounter
--- OUTSIDE RECORDS SUMMARY | 2024-11-24 18:39 | XMS_ITS | Encounter Summary ---
Author Organization [facility] tem Address [facility] [place][id number] [address] [place] [address] Care Team Providers Care Vp Of Customer Experience Strategy Name Role Phone HarveybereniceKristin perry CONSERVATION COORDINATOR-MANAGER STONE Primary Care Provider Encounter Details Date Type Department Care Team ([facility] st Contact Info) Description 11/11/2024 Telephone [facility] Hematology Oncology, A Department of [facility] [address] [facility] [address] [place] [phone] Ellie Coleman CMA Social History Tobacco Use Types Packs/Day Years Used Date Smoking Tobacco: Some Days Cigarettes Smokeless Tobacco: Never Alcohol Use Standard Drinks/Week Comments Never 0 (1 standard drink = 0.6 oz pur e alcohol) [facility] Utilities Answer Date Recorded In [...] encounter Miscellaneous Notes * Telephone Encounter - Ellie Coleman CMA - 11/11/2024 9:01 AM EDT L/M ON V/M Daughter Anna asked her to call regarding SENIOR ONLINE MARKETING MANAGER referral from Dr. Espinal, [facility], asking where patient would like to be seen at for appointment,ask for Ellie. documented in this encounter Plan of Treatment [...] on filedocumented in this encounter Care Teams Vp Of Customer Experience Strategy Relationship Specialty Start Date End Date Kristin Gracia, CONSERVATION COORDINATOR-MANAGER STONE PCP - General Nurse Practitioner 08/28/24 documented as of this encounter
--- OUTSIDE RECORDS SUMMARY | 2024-11-24 18:39 | XMS_ITS | Encounter Summary ---
Author Organization [facility] Address [facility] [place][id number] [address] [place] [address] Care Team Providers Care Window Shade Cloth Sewer Name Role Phone HarveyKristin yu Tevin VOLTAGE REGULATOR ASSEMBLER-FRACTIONATION SUPERVISOR Primary Care Provider Encounter Details Date Type Department Care Team (Late st Contact Info) Description 09/19/2024 Orders Only [facility] External Film Storage [address] [place] [phone] Transcribe, Orders Support User Pain (Primary Dx) Social History Tobacco Use Types Packs/Day Years Used Date Smoking Tobacco: Some Days Cigarettes Smokeless Tobacco: Never Alcohol Use Standard Drinks/Week Comments Never 0 (1 standard drink = 0.6 oz pur e alcohol) [facility] Utilities Answer Date Recorded In the past [...] pain documented in this encounter Care Teams Window Shade Cloth Sewer Relationship Specialty Start Date End Date Kristin Gracia, VOLTAGE REGULATOR ASSEMBLER-FRACTIONATION SUPERVISOR PCP - General Nurse Practitioner 08/28/24 documented as of this encounter
--- OUTSIDE RECORDS SUMMARY | 2024-11-24 18:39 | XMS_ITS | Encounter Summary ---
Author Organization [employer] tem Address [facility] [id number] [address] [place] [address] Care Team Providers Care Qc Manager Name Role Phone Harveyberenicevicky Kristin Tevin ANSARI-PERSONAL LINES SALES EXECUTIVE Primary Care Provider Encounter Details Date Type Department Care Team (Late st Contact Info) Description 11/19/2024 Orders Only Meera Albarado [facility] - Medical Oncology [address] [place] [address] She Drew, RN Social History Tobacco Use Types Packs/Day Years Used Date Smoking Tobacco: Some Days Cigarettes Smokeless Tobacco: Never Alcohol Use Standard Drinks/Week Comments Never 0 (1 standard drink = 0.6 oz pur e alcohol) [facility] Utilities Answer Date Recorded In the [...] on filedocumented in this encounter Care Teams Qc Manager Relationship Specialty Start Date End Date Kristin Gracia, MOTOR VEHICLE ESCORT DRIVER-PERSONAL LINES SALES EXECUTIVE PCP - General Nurse Practitioner 08/28/24 documented as of this encounter
--- OUTSIDE RECORDS SUMMARY | 2024-11-24 18:39 | XMS_ITS | Encounter Summary ---
Author Organization [employer] tem Address [facility] [id number] [address] [place] [address] Care Team Providers Care Turbine Engineer Name Role Phone HarveycaitierubyKristin Tevin ANSARI-PLASTIC PRESS OPERATOR Primary Care Provider Encounter Details Date Type Department Care Team (Late st Contact Info) Description 11/13/2024 Orders Only Meera Albarado [facility] - Medical Oncology [address] [place] [address] Guillermo Lundberg MD [address] [place], [place] [id number] GBM (glioblastoma multiforme) ([facility]) (Primary Dx) Social History Tobacco Use Types Packs/Day Years Used Date Smoking Tobacco: Some Days Cigarettes Smokeless Tobacco: Never Alcohol Use Standard Drinks/Week Comments Never 0 (1 standard drink = 0.6 oz pur e alcohol) [facility] Utilities Answer Date Recorded In the past 12 months has [employer], gas, oil, or water [employer] threatened to shut off services in your [...] encounter Visit Diagnoses Diagnosis GBM (glioblastoma multiforme) ([facility])- Primary Malignant neoplasm of brain, unspecified site documented in this encounter Care Teams Turbine Engineer Relationship Specialty Start Date End Date Kristin Gracia APRN-PLASTIC PRESS OPERATOR PCP - General Nurse Practitioner 08/28/24 documented as of this encounter
--- OUTSIDE RECORDS SUMMARY | 2024-11-24 18:39 | XMS_ITS | Encounter Summary ---
Author Organization [employer] Address [facility] [id number] [address] [place] [address] Care Team Providers Care Child Adolescent Psychiatrist Name Role Phone Kristin Gracia APRN-TRIM OPERATOR Primary Care Provider Encounter Details Date Type Department Care Team (Late st Contact Info) Description 11/13/2024 [facility] [address] [place] [address] Guillermo Lundberg MD [address] [place], [place] [id number] Social History Tobacco Use Types Packs/Day Years Used Date Smoking Tobacco: Some Days Cigarettes Smokeless Tobacco: Never Alcohol Use Standard Drinks/Week Comments Never 0 (1 standard drink = 0.6 oz pur e alcohol) [facility] Utilities Answer Date Recorded In the past 12 months has [employer], gas, oil, or water [employer] threatened to shut off services in your [...] encounter Miscellaneous Notes * Telephone Encounter - Cuca Sullivan - 11/13/2024 12:46 PM EDT Spoke with patient to let her know that she will be responsible for 40% of the bills. Patient states that she is ok with this. documented in this encounter Plan of Treatment [...] on filedocumented in this encounter Care Teams Child Adolescent Psychiatrist Relationship Specialty Start Date End Date Kristin Gracia, BOX INSPECTOR-TRIM OPERATOR PCP - General Nurse Practitioner 08/28/24 documented as of this encounter
--- OUTSIDE RECORDS SUMMARY | 2024-11-24 18:39 | XMS_ITS | Encounter Summary ---
Author Organization [employer] tem Address [place]-[id number] [address] [place] [address] Care Team Providers Care Sales And Service Specialist Name Role Phone HarveycaitierubyKristin Tevin ANSARI-SCHOOL BUS OPERATOR Primary Care Provider Encounter Details Date Type Department Care Team (Late st Contact Info) Description 11/19/2024 Orders Only Meera Albarado [facility] - Medical Oncology [address] [place] [address] Guillermo Lundberg MD [address] [place], [place] [id number] GBM (glioblastoma multiforme) ([facility]) (Primary Dx) Social History Tobacco Use Types Packs/Day Years Used Date Smoking Tobacco: Some Days Cigarettes Smokeless Tobacco: Never Alcohol Use Standard Drinks/Week Comments Never 0 (1 standard drink = 0.6 oz pur e alcohol) [facility] Utilities Answer Date Recorded In the past 12 months has [employer], gas, oil, or water [employer] threatened to shut off services in your [...] encounter Visit Diagnoses Diagnosis GBM (glioblastoma multiforme) ([facility])- Primary Malignant neoplasm of brain, unspecified site documented in this encounter Care Teams Sales And Service Specialist Relationship Specialty Start Date End Date Kristin Gracia APRN-SCHOOL BUS OPERATOR PCP - General Nurse Practitioner 08/28/24 documented as of this encounter
--- OUTSIDE RECORDS SUMMARY | 2024-11-24 18:39 | XMS_ITS | Encounter Summary ---
Author Organization Fab tem Address [id number] [address] [place] [address] Care Team Providers Care Information Services Vice President Name Role Phone HarveybereniceKristin perry APRN-WELDER/FITTER Primary Care Provider Encounter Details Date Type Department Care Team (Late st Contact Info) Description 11/19/2024 Orders Only Meera Albarado [facility] - Medical Oncology [address] [place] [address] Guillermo Lundberg MD [address] [place], [place] [id number] Social History Tobacco Use Types Packs/Day Years Used Date Smoking Tobacco: Some Days Cigarettes Smokeless Tobacco: Never Alcohol Use Standard Drinks/Week Comments Never 0 (1 standard drink = 0.6 oz pur e alcohol) [facility] Utilities Answer Date Recorded In the past 12 months has Cloudy[employer], gas, oil, or water [employer] threatened to shut off services in your [...] on filedocumented in this encounter Care Teams Information Services Vice President Relationship Specialty Start Date End Date Kristin Gracia, FOURTH GRADE TEACHER-WELDER/FITTER PCP - General Nurse Practitioner 08/28/24 documented as of this encounter
--- OUTSIDE RECORDS SUMMARY | 2024-11-24 18:39 | XMS_ITS | Encounter Summary ---
Author Organization [employer] tem Address [id number] [address] [place] [address] Care Team Providers Care Fish Roe Processor Name Role Phone HarveycaitieKristin beltran APRN-TUBE BENDER HAND Primary Care Provider Reason for Referral * Diagnostic Imaging (Emergency) - Closed Specialty Diagnoses / Procedures Referred By Contac t Referred To Contact Radiology Diagnoses Glioblastoma ([facility]) Procedures MR brain with and without contrast Grey Yo MD [address] [facility] [place] [address] Phone: tel: fax: Referral ID Status Reason Start Date Expiration Date Visits Re quested Visits Authorized [id number] Closed 11/12/2024 11/12/2025 1 1 Encounter Details Date Type Department Care Team (Late st Contact Info) Description 11/12/2024 Orders Only Barbara Tov[facility] Oncology - Radiation Oncology [address] [place] [address] Nancy Hernandez RN Glioblastoma ([facility]) (Primary Dx) Social History Tobacco Use Types Packs/Day Years Used Date Smoking Tobacco: Some Days Cigarettes Smokeless Tobacco: Never Alcohol Use Standard Drinks/Week Comments Never 0 (1 standard drink = 0.6 oz pur e alcohol) [facility] Utilities Answer Date Recorded In the past 12 months has [employer], gas, oil, or water company threatened to [...] documented as of this encounter Results * MR brain with [...] right temporal lobe mass, 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 Expected postsurgical distortion is noted, as [...] complex right temporal lobemass, 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 There is expected postsurgical distortion of [...] complex righttemporal lobe mass, 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 Expectedpostsurgical distortion is noted, as above. [...] in this encounter Visit Diagnoses Diagnosis Glioblastoma (CMS-HCC)- Primary Malignant neoplasm of brain, unspecified site Glioblastoma (CMS-HCC) Malignant neoplasm of brain, unspecified site documented in this encounter Care Teams Fish Roe Processor Relationship Specialty Start Date End Date Kristin Gracia, SHUT OFF WORKER-TUBE BENDER HAND PCP - General Nurse Practitioner 08/28/24 documented as of this encounter
--- OUTSIDE RECORDS SUMMARY | 2024-11-24 18:39 | XMS_ITS | Encounter Summary ---
[id number] [address] [place] [address] Care Team Providers Care Wall To Wall Carpet Installer Name Role Phone HarveybereniceKristin perry APRN-OPTOMETRIST/PRACTICE OWNER Primary Care Provider Encounter Details Date Type Department Care Team (Late st Contact Info) Description 11/12/2024 Documentation [facility] Oncology - Radiation Oncology [address] [place] [phone] Nancy Hernandez, RN Social History Tobacco Use Types Packs/Day Years Used Date Smoking Tobacco: Some Days Cigarettes Smokeless Tobacco: Never Alcohol Use Standard Drinks/Week Comments Never 0 (1 standard drink = 0.6 oz pur e alcohol) [facility] Utilities Answer Date Recorded In the [...] Notes * Nancy Hernandez RN - 11/12/2024 3:45 PM EDT Patient accompanied by resident care assistant from [facility] for Consult with Dr Yo (and Dr Lundberg) for diagnosis of Glioblastoma Craniotomy performed by Dr Espinal on 09/23/24 MR/Brain for SRS treatment planning tomorrow 11/13 at 1015am; Consent obtained to perform CT/Sim after with intention to plan concurrent ChemoRT with daily Temodar AVS provided with understanding verbalized documented in this encounter Plan of Treatment [...] on filedocumented in this encounter Care Teams Wall To Wall Carpet Installer Relationship Specialty Start Date End Date Kristin Gracia, FINGERPRINT TECHNICIAN-OPTOMETRIST/PRACTICE OWNER PCP - General Nurse Practitioner 08/28/24 documented as of this encounter
--- OUTSIDE RECORDS SUMMARY | 2024-11-24 18:39 | XMS_ITS | Patient Health Record ---
Author Organization [facility] Address [address] [place] [address] Care Team Providers Care Aviation Electronics Technician Name Role Phone Dian Salgado Unavailable [phone] Allergies No Known Allergies Reason For Referral [...] Body mass index 40+ - morbidly obese (607428082) BMI 40.0-44.9, adult (Z68.41) Active confirmed Vital Signs Heart Rate 82 /min 07/22/2024 Blood pressure diastolic 82 mm Hg 07/22/2024 Height-cm 170.18 cm 07/22/2024 Weight-kg 136.08 kg 07/22/2024 Height 5'7 in 07/22/2024 Blood pressure systolic 112 mm Hg 07/22/2024 Weight 300 lbs 07/22/2024 BMI 46.98 kg/m2 07/22/2024 Encounters Encounter Location Date Provider Diagnosis Dental Main [address] [place], [place] [phone] 07/22/2024 Dian Salgado BMI 40.0-44.9, joao lt [...] Insured Coverage Start Date Coverage End Date [facility] Medicare Advantage [facility] [address] [address] [place] [address] [phone] [id number] Yamilka Yates Self - patient is the insured 5 [facility] [address] [address] [place] [address] [id number] Yamilka Yates Self - patient is the insured 5
--- OUTSIDE RECORDS SUMMARY | 2024-11-24 18:39 | XMS_ITS | Encounter Summary ---
Author Organization [facility] Address [address] [place] [address] Care Team Providers Care Peoplesoft Taleo Manager Name Role Phone KatrinaDinah lybony Ho Primary Care Provider [phone] Pcp, Fartun DEVELOPMENT EDITOR Primary Care Provider [facility] Wyatt Costa Primary Care Provider Frances Hills (Rn) netbackup administrator Provider Valdez Bhandari MD Primary Care Provider [phone] Dian Smith PA-C Unavailable + [phone] Malinda Lopez APRN.[facility] Unavailable + [phone] Source Comments In the event this information is protected by the Federal Confidentiality of Alcohol and Drug AbusePatient Records regulations: The Federal rules restrict any use of the information to criminally investigate or prosecute any alcohol or drug abuse patient.[facility] Encounter Details Date Type Department Care Team (Late st Contact Info) Description 08/13/2005 Abstract General Surgery [address] [phone] Tari Chavira MD [address] [place] [phone] Social History Tobacco Use Types Packs/Day Years [...] old female submitted a completed questionnaire to [facility] for consideration of weight [...] months with weight loss of 16 #. [facility] in 2000 over 07 months with weight [...] No hospitalizations. 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 Caffeine History: [...] Heart Father Cancer Father Thyroid Maternal Grandmother VENETIAN BLIND CLEANER HISTORY Date of last nursery school teacher exam? 08/2001;performed by Dr. Gauthier; whose phone # is [phone] Did you have aPAP test at the [...] Patient was referred to this program by [facility] Primary Care Physician Yahaira Sam Ma documented in this encounter Plan of Treatment Not on file documented as of this encounter Visit Diagnoses Not on filedocumented in this encounter Additional Health Concerns Infection Onset Date Last Indicated Resolved Time COVID-19 Rule-Out 08/06/2020 08/05/2020 08/26/2020 8:53 PM EDT documented as of this encounter Care Teams Peoplesoft Taleo Manager Relationship Specialty Start Date End Date KatrinaDinah lybony Ho [address] [place] [phone] PCP - General 05/23/04 11/15/11 Fartun Conti DEVELOPMENT EDITOR PCP - General 11/16/11 05/20/12 Wyatt Bradley PCP - General Internal Medicine 05/21/12 12/05/17 Frances Hills (Rn), RN PCP - General 12/06/17 10/31/20 Valdez Acosta MD [address] [place] [address] PCP - General Internal Medicine 11/01/20 Dian Smith PA-C [address] [place] [address] [phone] Ticket Worker Internal Medicine 04/26/24 05/21/24 Malinda Lopez, DEVELOPMENT EDITOR.FAREBOX REPAIRER [address] [place] [address] [phone] Ticket Worker Family Medicine 04/26/24 documented as of this encounter
[2024-11-24 18:51] LABS: Hematocrit 28.4 % (36.0-48.0); Hemoglobin 8.7 g/dL (12.0-16.0); Immature Granulocytes Abs Auto 0.04 10^3/uL (0.00-0.03); Immature Granulocytes Pct Auto 0.4 % (0.0-0.5); Lymphocytes Absolute Auto 0.9 10^3/uL (1.2-3.8); Mean Corpuscular HGB Conc 30.6 g/dL (29.9-35.2); Mean Corpuscular Hemoglobin 27.2 pg (26.7-34.0); Mean Corpuscular Volume 88.8 fL (81.0-99.0); Platelet Count 220 10^3/uL (150-450); Red Blood Count 3.20 10^6/uL (4.20-5.40); White Blood Count 10.9 10^3/uL (4.0-11.0)
[2024-11-24 18:59] LABS: Glucose Urine UA 250 mg/dL (NEGATIVE)
[2024-11-24 19:01] LABS: Cast Seen? NONE SEEN #/LPF (NONE SEEN); Crystals Seen? None Seen #/HPF (None Seen)
[2024-11-24 19:02] LABS: Urine Culture Indicated NO
[2024-11-24 19:04] LABS: INR 1.04; Prothrombin Time 11.0 sec (9.0-11.6)
[2024-11-24 19:06] VITALS: BP 109/71; PULSE 84; O2SAT 98
[2024-11-24 19:07] LABS: Alanine Aminotransferase 8 U/L (14-59); Albumin Globulin Ratio 0.6; Albumin Level 2.2 g/dL (3.4-5.0); Alkaline Phosphatase 71 U/L (46-116); Anion Gap 11.4; Aspartate Amino Transferase 12 U/L (15-37); Blood Urea Nitrogen 23.0 mg/dL (7.0-18.0); Calcium 8.4 mg/dL (8.5-10.1); Carbon Dioxide 34.0 mmol/L (21.0-32.0); Chloride 106 mmol/L (98-107); Estimated GFR (African America 32 (>=60 mL/min/1.73m^2); Estimated GFR (Non-African Ame 27 (>=60 mL/min/1.73m^2); Globulin 3.6 g/dL; Glucose 155 mg/dL (74-106); Potassium 3.4 mmol/L (3.5-5.1); Sodium 148 mmol/L (136-145); Total Protein 5.8 g/dL (6.4-8.2)
--- NOTE | 2024-11-24 19:09 | PC.NURSE ---
i walked into this patient's room to find this patient awake and alert sitting up right on the bed. i introduced myself to this patient and updated this patient that now waiting on urine and blood test results to come back. this patient voices no concerns, needs and this patient shows no signs of distrss
--- NOTE | 2024-11-24 19:32 | CT_ITS ---
The [address] [address] Patient Name: NITHYA VASQUEZ MRN: [id number] date: 1970 Sex: F Assigned Patient Location: ER Current Patient Location: ER Accession/Order Number: [id number] Exam Date: 11/24/2024 20:01 Report Date: 11/24/2024 20:06 At the request of: KRISTA KING NP Procedure: CT abdomen pelvis wo con CT ABDOMEN AND PELVIS WITHOUT INTRAVENOUS CONTRAST: CLINICAL HISTORY: suprapubic region pain, hematuria COMPARISON: 08/22/2024 TECHNIQUE: Spiral images were obtained through the abdomen and pelvis without intravenous contrast. This CT exam was performed using one or more following dose reduction techniques: Automated exposure control, adjustment of the mA and/or kV according to patient size, or use of iterative reconstruction technique. FINDINGS: Lung Bases: [Small to moderate-sized effusions. Bibasilar atelectasis.] Organs:Severe right-sided hydronephrosis with moderate right-sided hydroureter. Vpop-jv-zvadjbjx left-sided hydroureteronephrosis. No nephrolithiasis. Otherwise liver, spleen, adrenals, and pancreas are unremarkable. GI: Mild retained stool. No bowel obstruction. Colonic diverticulosis. Unremarkable appendix.[ Pelvis:[Ayala catheter balloon and intraluminal gas identified within the bladder. Bladder wall thickening. Bladder is diffusely collapse. There is infiltrative changes identified within the space of Retzius. Uterus unremarkable. No adnexal mass.] Peritoneum/Retroperitoneum:No free air. No free fluid. Fwod-wf-vdspzlbw plaque involving the aorta. Aorta is nonaneurysmal.[ Abd wall/Bones:Degenerative changes lower lumbar spine.[Small fat-containing umbilical hernia. CT/CT abdomen pelvis wo con IMPRESSION: Severe bladder wall thickening and surrounding moderate changes within space of Retzius worrisome for cystitis. Moderate severe right-sided hydroureteronephrosis and wzes-ro-ezretccv left-sided hydroureteronephrosis likely related to the bladder wall thickening versus pyelonephritis. Impression dictated by: Franklin Paniagua M.D. 11/24/2024 8:06 PM Dictation Location: [place] [address] Electronically authenticated by: [id number] Y Date: 11/24/2024 20:06
--- NOTE | 2024-11-24 19:51 | PC.NURSE ---
this patient is back in her room CT dept. i informed this patient that now e are waiting on ct results to come back. this patient voices no concerns, needs and shows no signs of distress
--- NOTE | 2024-11-24 21:23 | PC.NURSE ---
this patient update that she will go back to [facility], and transportation will be here around 10:00 pm this patient voices no concerns, needs and shows no signs of distress
[2024-11-24 22:08] VITALS: BP 113/74; PULSE 83; TEMP 37.1; O2SAT 95
--- NOTE | 2024-11-24 22:19 | PC.NURSE ---
i gave this patient verbal and paper discharge orders and this patient voices yes to understanding these. at time of discharge this patient voices no concerns, needs and shows no signs of distress i gave superior crew patient report and I did call [facility] and gave her patient report also
== END 2024-11-24 22:18 | disposition home or self-care (01) ==
PROVIDERS: Nurse Practitioner; Emergency Provider Emergency Medicine; PCP Nurse Practitioner
DX: N17.9 Acute kidney failure, unspecified (principal); G35 Multiple sclerosis; I50.9 Heart failure, unspecified; I11.0 Hypertensive heart disease with heart failure; F41.9 Anxiety disorder, unspecified; F80.89 Other developmental disorders of speech and language; R33.9 Retention of urine, unspecified; R31.9 Hematuria, unspecified; N13.30 Unspecified hydronephrosis
CPT/HCPCS: 36415; 74176; 80053; 81001; 85025; 85610; 99285

== ENCOUNTER 2024-11-27 19:53 | Inpatient (IN) | payer MEDICARE, MEDICAID, SELFPAY ==
--- OUTSIDE RECORDS SUMMARY | 2024-08-06 04:45 | XMS_ITS ---
Author Organization [facility] vices Address [address] [place], [place] [id number] Care Team Providers Care Restorative Coordinator Name Role Phone Dian Salgado Unavailable [phone] REASON FOR VISIT Prophy (A)- 56 Medications [...] Location Date Provider Diagnosis [facility] Main [address] [place], [place] [id number] 08/06/2024 Dian Salgado Plan Of Treatment No Information Progress Notes * Yamilka VASQUEZDOB:1970 (54 yo F)Acc No.[id number]:08/06/2024 Patient: Yamilka BARRETO Provider: Maciej Salgado DDS :1970 A ge:54 Y S ex:Female Date:08/06/2024 Address:[facility] [address], [place], [id number] Subjective: * Chief Complaints: * 1 . [...] Electronic signature of Lauren Salgado DDS on 11/27/2024 at 08:03 PM EDT Sign off status: Pending * Provider: Maciej Salgado DDS Date: 08/06/2024 Generated for Chrissy mireles/June/Bernadette on: 11/27/2024 08:03 PM EDT
--- OUTSIDE RECORDS SUMMARY | 2024-10-14 11:00 | XMS_ITS ---
Author Organization [facility] Address [address] [place] [address] [place] [address] Care Team Providers Care Logging Crew Supervisor Name Role Phone Rio Ennis Primary Care Provider UnavailGlen Beatty Unavailable [phone] Encounters Encounter Location Date Provider Diagnosis [address] [address] 10/14/2024 Glen Delaney Plan Of Treatment No Information Progress Notes * Yamilka VASQUEZDOB:1970 (54 yo F)Acc No.[id number]:10/14/2024 Patient: Verena BRIGHTLeeSusanaYamilka Provider: Grzegorz Delaney DPM :1970 A ge:54 Y S ex:Female Date:10/14/2024 Address:[id number] Pcp:Rio Ennis Subjective: * Chief Complaints: * * Medical History: Objective: * Vitals: Assessment: Plan: * Treatment: * Images: * Electronic signature of [place] in VASYL Delaney on 11/27/2024 at 08:03 PM EDT Sign off status: Pending * Provider: Grzegorz Delaney DPM Date: 10/14/2024 Generated for Chrissy mireles/June/Bernadette on: 11/27/2024 08:03 PM EDT
--- OUTSIDE RECORDS SUMMARY | 2024-10-19 05:15 | XMS_ITS ---
Author Organization [facility] vices Address [address] [place] [phone] Care Team Providers Care Direct Care Specialist Name Role Phone Dian Salgado Unavailable [phone] REASON FOR VISIT Rest #23-DIL and Prophy Social History Sex Assigned At : Social History Observation Description Sex Assigned At Female Encounters Encounter Location Date Provider Diagnosis [facility] [address] [place], [place] [id number] 10/19/2024 Dian Salgado Plan Of Treatment No Information Progress Notes * Yamilka VASQUEZDOB:1970 (54 yo F)Acc No.[id number]:10/19/2024 Patient: Yamilka BARRETO Provider: Maciej Salgado DDS :1970 A ge:54 Y S ex:Female Date:10/19/2024 Address:[address] , [address], [place], [id number] Subjective: * Chief Complaints: * 1 . Rest #23-DIL and Prophy. * Medical History: Objective: * Vitals: Assessment: Plan: * Treatment: * Billing Information: * Visit Code: * Procedure Codes: * Electronic signature of Lauren Salgado DDS on 11/27/2024 at 08:03 PM EDT Sign off status: Pending * Provider: Maciej Salgado DDS Date: 0 10/19/2024 Generated for Printi ng/Faxing/eTransmitting on: 0 11/27/2024 08:03 PM EDT
--- OUTSIDE RECORDS SUMMARY | 2024-10-26 05:15 | XMS_ITS ---
Author Organization [facility] Address [address] [place], [place] [id number] Care Team Providers Care Fast Food Shift Supervisor Name Role Phone Dian Salgado Unavailable [phone] REASON FOR VISIT Extraction #31 Social History Sex Assigned At : Social History Observation Description Sex Assigned At Female Encounters Encounter Location Date Provider Diagnosis [facility] [address] [place], [place] [id number] 10/26/2024 Dian Salgado Plan Of Treatment No Information Progress Notes * Yamilka VASQUEZDOB:1970 (54 yo F)Acc No.[id number]:10/26/2024 Patient: Yamilka BARRETO Provider: Maciej Salgado DDS :1970 A ge:54 Y S ex:Female Date:10/26/2024 Address:[address] , [address], [place], [id number] Subjective: * Chief Complaints: * 1 . Extraction #31. * Medical History: Objective: * Vitals: Assessment: Plan: * Treatment: * Billing Information: * Visit Code: * Procedure Codes: * Electronic signature of Lauren Salgado DDS on 11/27/2024 at 08:02 PM EDT Sign off status: Pending * Provider: Maciej Salgado DDS Date: 10/26/2024 Generated for Chrissy mireles/June/eTmunasmitting on: 11/27/2024 08:02 PM EDT
--- OUTSIDE RECORDS SUMMARY | 2024-11-12 10:41 | XMS_ITS | Encounter Summary ---
Author Organization [employer] tem Address [id number] [address] [place] [address] Care Team Providers Care Associate Attorney Name Role Phone HarveybereniceMamta perrya Tevin VIEIRAN-BORDER PATROL AGENT Primary Care Provider Reason for Referral * Misc (Routine) - Pending Review Specialty Diagnoses / Procedures Referred By Contac t Referred To Contact Diagnoses GBM (glioblastoma multiforme) ([facility]) Procedures Patient education (specify) Richie Sandoval MD [address] [place] [address] Phone: tel: fax: Referral ID Status Reason Start Date Expiration Date V isits Requested Visits Authorized [id number] Pending Review 11/12/2024 11/12/2025 1 1 * Radiation Oncology (Routine) - Authorized Specialty Diagnoses / Procedures Referred By Contac t Referred To Contact Radiation Oncology Diagnoses GBM (glioblastoma multiforme) ([facility]) Procedures Initial Verification Sim Richie Sandoval MD [address] [place] [address] Phone: tel: fax: [facility] - Radiation Oncology [address] [place] [phone] Phone: tel: fax: Referral ID Status Reason Start Date Expiration Date V isits Requested Visits Authorized [id number] Authorized 11/13/2024 02/11/2025 30 30 * Consultation (Routine) - Pending Review Specialty Diagnoses / Procedures Referred By Contac t Referred To Contact Radiation Oncology Diagnoses Brain tumor (CMS-HCC) Double vision Andressa Garcia APRN-BORDER PATROL AGENT [address] [address] Phone: tel: fax: Shen Ramey MD [address] [address] Phone: tel: fax: Referral ID Status Reason Start Date Expiration Date Visits Requested Visits Authorized [id number] Pending Review Specialty Services Required 11/10/2024 11/10/2025 1 1 Reason for Visit * Consultation (Routine) - Pending Review Specialty Diagnoses / Procedures Referred By Contac t Referred To Contact Radiation Oncology Diagnoses Brain tumor ([facility]) Double vision Andressa Garcia APRN-CNP [address] [address] Phone: tel: [place]: [place] [address] [place] [phone] Phone: tel: fax: Referral ID Status Reason Start Date Expiration Date Visits Requested Visits Authorized [id number] Pending Review Specialty Services Required 11/10/2024 11/10/2025 1 1 Encounter Details Date Type Department Care Team (Latest Contact Info) Description 11/12/2024 10:41 AM EDT - 11/12/2024 11:59 PM EDT [facility] [place] [address] GBM (glioblastoma multiforme) (CMS-HCC) (Primary Dx); Brain tumor ([facility] Double vision Discharge Disposition: Still a Patient Social History Tobacco Use Types Packs/Day Years Used Date Smoking Tobacco: Some Days Cigarettes Smokeless Tobacco: Never Alcohol Use Standard Drinks/Week Comments Never 0 (1 standard drink = 0.6 oz pur e alcohol) [facility] Utilities Answer Date Recorded In the past [...] got money to buy more. Never True 11/13/2024 Within the past 12 months th e food we bought just didn't last and we didn't have money to get more. Never True 11/13/2024 Comments Unknown Sex and Gender Information Value Date Recorded Sex Assigned at Not on file Legal Sex Female 11:57 AM EST Gender Identity Not on file Sexual Orientation Not on file documented as of this encounter Medications at Time of Discharge acetaminophen (TYLENOL) 325 mg tablet Take 2 tablets (650 mg total) by mouth every 6 (six) hours as needed for pain. bumetanide (BUMEX) 2 mg tablet 11/06/2024 busPIRone (BUSPAR) 7.5 mg tablet Take 1 tablet (7.5 mg total) by mouth. 09/15/2024 dexAMETHasone (DECADRON) 4 mg tablet Take by mouth. 10/09/2024 levETIRAcetam (KEPPRA) 500 mg tablet Take 1 tablet (500 mg total) by mouth in the morning and 1 tablet (500 mg total) before bedtime. 09/28/2024 levoFLOXacin (LEVAQUIN) 500 mg tablet Take 1 tablet (500 mg total) by mouth in the morning. End 11/24/24. 11/09/2024 metoprolol tartrate (LOPRESSOR) 25 mg tablet Take 1 tablet (25 mg total) by mouth in the morning and 1 tablet (25 mg total) before bedtime. 09/28/2024 mirtazapine (REMERON CANDI-TAB) 15 mg disintegrating tablet Dissolve 1 tablet (15 mg total) on tongue nightly. nystatin (MYCOSTATIN) powder Apply topically in the morning and before bedtime. 08/23/2024 potassium chloride (KLOR-CON SPRINKLE) 10 MEQ CR capsule 11/06/2024 sennosides-docusate sodium (SENOKOT-S) 8.6-50 mg Take 2 tablets by mouth nightly. 09/28/2024 traZODone (DESYREL) 50 mg tablet Take 0.5 tablets (25 mg total) by mouth. 02/05/2024 albuterol-budesonide 90-80 mcg/actuation HFA aerosol inhaler Albuterol 11/19 documented as of this encounter Progress Notes * Richie Sandoval MD - 11/12/2024 11:30 AM EDT RADIATION ONCOLOGY NEW PATIENT ASSESSMENT Date of Service: 11/12/2024 Location: [facility] ONCOLOGY - RADIATION ONCOLOGY [address] [place] [phone] Patient ID: Yamilka Yates : 1970 Yamilka Yates is being seen today for an oncologic opinion at the request of Dr. Gracia. Chief Complaint: Cancer Staging No matching staging information was found for the patient. Patient Active Problem List Diagnosis Non-traumatic rhabdomyolysis [...] mental status, unspecified altered mental status type GBM (glioblastoma multiforme) ([facility]) HISTORY OF PRESENT ILLNESS: Ms. Yates is a 54 year old woman with history of Multiple sclerosis who recently presented with altered mental status. She was found to have a right temporal mass and midline shift. She was transferred to [facility] and underwent an MRI brain showed showed a 4.6 cm right temporal mass with associated edema and midline shift. She underwent a resection with Dr. Espinal. 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 She is currently at a facility undergoing physical therapy. She denies any headaches, nausea, vomiting or other symptoms. Patient is ?: No Pacemaker?: No Previous Radiation Therapy?: No immunodefiency?: No Current Outpatient Medications Medication Sig acetaminophen (TYLENOL) 325 mg tablet Take 2 tablets (650 mg total) by mouth every 6 (six) hours asneeded for pain. albuterol-budesonide 90-80 mcg/actuation HFA aerosol inhaler Albuterol (Patient not taking: Reported on 11/12/2024) bumetanide (BUMEX) 2 mg tablet busPIRone (BUSPAR) 7.5 mg tablet Take 1 tablet (7.5 mg total) by mouth. dexAMETHasone (DECADRON) 4 mg tablet Take by mouth. levETIRAcetam (KEPPRA) 500 mg tablet Take 1 tablet (500 mg total) by mouth in the morning and 1 tablet (500 mg total) before bedtime. levoFLOXacin (LEVAQUIN) 500 mg tablet Take 1 tablet (500 mg total) by mouth in the morning. End 11/24/24. metoprolol tartrate (LOPRESSOR) 25 mg tablet Take 1 tablet (25 mg total) by mouth in the morning and 1 tablet (25 mg total) before bedtime. mirtazapine (REMERON CANDI-TAB) 15 mg disintegrating tablet Dissolve 1 tablet (15 mg total) on tonguenightly. nystatin (MYCOSTATIN) powder Apply topically in the morning and before bedtime. potassium chloride (KLOR-CON SPRINKLE) 10 MEQ CR capsule sennosides-docusate sodium (SENOKOT-S) 8.6-50 mg Take 2 tablets by mouth nightly. traZODone (DESYREL) 50 mg tablet Take 0.5 tablets (25 mg total) by mouth. No current facility-administered medications for this encounter. Past Medical History: Diagnosis Date MS (multiple sclerosis) ([facility]) 2012 Past Surgical History: Procedure Laterality Date CARPAL TUNNEL RELEASE Left SHOULDER ARTHROSCOPY W/ ROTATOR CUFF REPAIR Left SYNAPTIVE CRANIOTOMY EXCISION TUMOR Right 09/23/2024 Performed by Juni Espinal MD at [facility] No Known Allergies Social History Tobacco Use Smoking status: Some Days Current packs/day: 0.50 Types: Cigarettes Smokeless tobacco: Never Vaping Use Vaping status: Never Used Substance Use Topics Alcohol use: Never Drug use: Yes Types: Marijuana Family History Problem Relation Age of Onset Stroke Mother No data recorded SYSTEMS REVIEW: No data recorded Review of Systems Objective PHYSICAL EXAMINATION: Vital Signs: There were no vitals taken for this visit. ECO- Asymptomatic Physical Exam Constitutional: Comments: In a wheel chair Neurological: General: No focal deficit present. Mental Status: She is alert and oriented to person, place, and time. Comments: Mild confusion CN III-XII grossly intact. Assessment/Plan ASSESSMENT AND PLAN: Yamilka Yates is a 54 y.o. female with a IDH-Wildtype, MGMT un-methylated glioblastoma s/p resection. She is here for consideration of adjuvant radiation therapy. I had a detailed discussion with Ms. Yates, regarding her clinical and pathological findings. I explained to her that she has newly diagnosed glioblastoma s/p maximal safe resection. We discussed treatment options - specifically Stupp regimen with 60 Gy of chemoradiation with concurrent TMZ followedby adjuvant TMZ +/-Tumor treating franks. We discussed the risks, benefits and alternatives of therapy. I explained to Ms. Yates as she is more than 6 weeks out from surgery - I would recommend proceeding with radiation therapy planning and a STAT MRI brain. The risks, benefits and alternatives of treatment were discussed with the patient. She would like to proceed with treatment and signed an informed consent. RICHIE SANDOVAL MD November 12, 2024, 12:28 PM CC: Patient Care Team: Kristin Gracia APRN-RUBINA as PCP - General (Nurse Practitioner) Jacob Kaiser MD as Consulting Physician (Radiation Oncology) Medications Prescribed: Medication List None Orders Placed: Orders Placed This Encounter Procedures [facility] Radiation Oncology [place], [place] documented in this encounter Plan of Treatment Scheduled Orders Name Type Priority Associated Diagnoses Order Schedule Initial CT Simulation Specifics (for therapists) Radiation Oncology Routine GBM (glioblastoma multiforme) ([facility]) 1 Occurrences starting 11/12/2024 until 11/12/2025 Initial Verification Sim Radiation Oncology Routine GBM (glioblastoma multiforme) ([facility]) 1 Occurrences starting 11/12/2024 until 11/12/2025 Calculations Radiation Oncology Routine GBM (glioblastoma multiforme) ([facility]) 1 Occurrences starting 11/12/2024 until 11/12/2025 Devices Radiation Oncology Routine GBM (glioblastoma multiforme) ([facility]) 1 Occurrences starting 11/12/2024 until 11/12/2025 Continuing Physics Support Radiation Oncology Routine GBM (glioblastoma multiforme) ([facility]) 1 Occurrences starting 11/12/2024 until 11/12/2025 IMRT Radiation Oncology Routine GBM (glioblastoma multiforme) ([facility]) 1 Occurrences starting 11/12/2024 until 11/12/2025 CT Guidance ( XRT ) Radiation Oncology Routine GBM (glioblastoma multiforme) ([facility]) 1 Occurrences starting 11/12/2024 until 11/12/2025 Scheduled Referrals Name Type Priority Associated Diagnoses Order Schedule [facility] Radiation [place], [place] Outpatient Referral Routine Brain tumor ([facility]) Double vision Once for 1 Occurrences starting 11/12/2024 until 11/12/2024 documented as of this encounter Goals Goal Patient Goal Type Associated Problems Recent Progress Patient-Stated? Author SNF General Yes Amparo Lamas LSW Note: Evaluation of progress towards goal: SNF recommended, pt agreeable to SNF stating she is not able to care for self at home at this time documented as of this encounter Visit Diagnoses Diagnosis GBM (glioblastoma multiforme) ([facility])- Primary Malignant neoplasm of brain, unspecified site Brain tumor ([facility]) Neoplasm of unspecified nature of brain Double vision Diplopia GBM (glioblastoma multiforme) ([facility]) Malignant neoplasm of brain, unspecified site documented in this encounter Care Teams Associate Attorney Relationship Specialty Start Date End Date Kristin Gracia, TESTING AND REGULATING TECHNICIAN-BORDER PATROL AGENT PCP - General Nurse Practitioner 08/28/24 documented as of this encounter
--- OUTSIDE RECORDS SUMMARY | 2024-11-12 11:00 | XMS_ITS | Encounter Summary ---
Author Organization [employer] tem Address [id number] [address] [place] [address] Care Team Providers Care Tub Rider Name Role Phone Kristin Gracia TRANSPORTATION PROGRAM DIRECTOR-[facility] Primary Care Provider Reason for Visit * Reason Comments New Patient * Consultation (Routine) - Pending Review Specialty Diagnoses / Procedures Referred By Atilio carbone Referred To Contact Oncology / Hematology and Oncology Diagnoses Brain tumor ([facility]) Double vision Andressa Garcia, ELAN-REHABILITATION PHYSICIAN [address] [address] Phone: tel: fax: Alcon Khan MD [address] [place] [address] Phone: tel: fax: Referral ID Status Reason Start Date Expiration Date Visits Requested Visits Authorized [id number] Pending Review Specialty Services Required 11/10/2024 11/10/2025 1 1 Encounter Details Date Type Department Care Team (Late st Contact Info) Description 11/12/2024 11:00 AM EDT Office Visit [facility] - [facility] On[facility] [place] [address] Guillermo Lundberg MD [address] [place] [address] GBM (glioblastoma multiforme) (CMS-HCC) (Primary Dx) Social History Tobacco Use Types Packs/Day Years Used Date Smoking Tobacco: Some Days Cigarettes Smokeless Tobacco: Never Alcohol Use Standard Drinks/Week Comments Never 0 (1 standard drink = 0.6 oz pur e alcohol) [facility] Utilities Answer Date Recorded In the past [...] from the original note were not included. [facility] 11/12/24 Yamilka Yates is a 54 y.o. [...] 2024, final path showed: brain glioblastoma, IDH-wildtype (AUDITOR MEDICAL CLAIMS WHO grade 4). Negative for MGMT promoter methylation. The patient came to her clinic for my oncologic or opinion regarding further treatment. She is hereaccompanied by a caregiver from retirement. She told me she is able to [...] Medical History: Diagnosis Date MS (multiple sclerosis) ([facility]) 2012 Past Surgical History: Procedure Laterality Date CARPAL TUNNEL RELEASE Left SHOULDER ARTHROSCOPY W/ ROTATOR CUFF REPAIR Left SYNAPTIVE CRANIOTOMY EXCISION TUMOR Right 09/23/2024 Performed by Juni Espinal MD at [facility] Family History Problem Relation Age of [...] Stress Concern Present (06/04/2023) Received from [facility] [place] [facility] Occupational Health - Occupational Stress Questionnaire Feeling of Stress : Only a little Social Connections: Moderately Integrated (06/04/2023) Received from [facility] Social Connection and Isolation Panel [NHANES] Frequency of Communication with Friends and Family: Twice a week Frequency of Social Gatherings with Friends and Family: Once a week Attends Mormonism Services: 1 to 4 times per year [...] Dose: 500 mg Signed by: Jesi Lewis APRN-REHABILITATION PHYSICIAN 500 mg, oral, 2 times daily Commonly known as: KEPPRA levoFLOXacin 500 mg tablet Refills: 0 Dose: 500 mg Commonly known as: LEVAQUIN metoprolol tartrate 25 mg tablet Refills: 0 Dose: 25 mg Signed by: Jesi Lewis APRN-REHABILITATION PHYSICIAN 25 mg, oral, 2 times daily Commonly known as: LOPRESSOR mirtazapine 15 mg disintegrating tablet Refills: 0 Dose: 15 mg Commonly known as: REMERON CANDI-TAB nystatin powder Refills: 0 Commonly known as: MYCOSTATIN potassium chloride 10 MEQ CR capsule Refills: 0 Commonly known as: KLOR-CON SPRINKLE sennosides-docusate sodium 8.6-50 mg Refills: 0 Dose: 2 tablet Signed by: Jesi Lewis APRN-REHABILITATION PHYSICIAN 2 tablets, oral, Nightly Commonly known as: [...] Addressed This Visit Other GBM (glioblastoma multiforme) ([facility]) - Primary Impression: Brain glioblastoma, IDH-wildtype (AUDITOR MEDICAL CLAIMS WHO grade 4), negative for MGMT promoter [...] to ensure the accuracy of this automated lead burner apprentice, some errors in lead burner apprentice may have occurred. CC: Patient Care Team: [...] encounter Visit Diagnoses Diagnosis GBM (glioblastoma multiforme) ([facility])- Primary Malignant neoplasm of brain, unspecified site documented in this encounter Care Teams Tub Rider Relationship Specialty Start Date End Date Kristin Gracia APRN-CNP PCP - General Nurse Practitioner 08/28/24 documented as of this encounter
--- OUTSIDE RECORDS SUMMARY | 2024-11-13 09:48 | XMS_ITS | Encounter Summary ---
Author Organization [employer] tem Address [facility] [id number] [address] [place] [address] Care Team Providers Care Oral Surgery Physician Name Role Phone Kristin Gracia GLOVE PRESSER-PHYSICAL THERAPY TECHNICIAN Primary Care Provider Reason for Referral * Diagnostic Imaging (Emergency) - Closed Specialty Diagnoses / Procedures Referred By Contac t Referred To Contact Radiology Diagnoses Glioblastoma ([facility]) Procedures MR brain with and without contrast Grey Yo MD [address] [place] [address] Phone: tel: fax: Referral ID Status Reason Start Date Expiration Date Visits Re quested Visits Authorized [id number] Closed 11/12/2024 11/12/2025 1 1 Reason for Visit * Diagnostic Imaging (Emergency) - Closed Specialty Diagnoses / Procedures Referred By Contac raf Referred To Contact Radiology Diagnoses Glioblastoma ([facility]) Procedures MR brain with and without contrast Grey Yo MD [address] [place] [address] Phone: tel: fax: Referral ID Status Reason Start Date Expiration Date Visits Re quested Visits Authorized [id number] Closed 11/12/2024 11/12/2025 1 1 Encounter Details Date Type Department Care Team (Late st Contact Info) Description 11/13/2024 9:48 AM EDT - 11/13/2024 11:02 AM EDT Hospital Encounter [facility] - MRI Imaging [address] [place] [phone] Grey Yo MD [address] [place] [address] Glioblastoma ([facility]) Discharge Disposition: Home Social History Tobacco Use Types Packs/Day Years Used Date Smoking Tobacco: Some Days Cigarettes Smokeless Tobacco: Never Alcohol Use Standard Drinks/Week Comments Never 0 (1 standard drink = 0.6 oz pur e alcohol) [facility] Utilities Answer Date Recorded In the [...] right temporal lobe mass, compatible with high-grade TECHNOLOGY EDUCATION TEACHER glioma. There is expected post surgical distortion [...] right temporal lobe mass, compatible with high-grade TECHNOLOGY EDUCATION TEACHER glioma. Expected postsurgical distortion is noted, as [...] complex right temporal lobemass, compatible with high-grade TECHNOLOGY EDUCATION TEACHER glioma. There is expected postsurgical distortion of [...] complex righttemporal lobe mass, compatible with high-grade TECHNOLOGY EDUCATION TEACHER glioma. Expectedpostsurgical distortion is noted, as above. [...] mL documented in this encounter Care Teams Oral Surgery Physician Relationship Specialty Start Date End Date Kristin Gracia, GLOVE PRESSER-PHYSICAL THERAPY TECHNICIAN PCP - General Nurse Practitioner 08/28/24 documented as of this encounter
--- OUTSIDE RECORDS SUMMARY | 2024-11-13 11:03 | XMS_ITS | Encounter Summary ---
Author Organization [facility] Address [id number] [address] [place] [address] Care Team Providers Care Car Usher Name Role Phone Kristin Gracia FUEL ATTENDANT-ARCHIVAL RECORDS CLERK Primary Care Provider Encounter Details Date Type Department Care Team (Latest Contact Info) Description 11/13/2024 11:03 AM EDT - 11/13/2024 12:07 PM EDT Hospital Encounter [facility] - Radiation Oncology [address] [place] [phone] GBM (glioblastoma multiforme) ([facility]) Discharge Disposition: Home Social History Tobacco Use Types Packs/Day Years Used Date Smoking Tobacco: Some Days Cigarettes Smokeless Tobacco: Never Alcohol Use Standard Drinks/Week Comments Never 0 (1 standard drink = 0.6 oz pur e alcohol) [facility] Utilities Answer Date Recorded In the past 12 months has e [employer], gas, oil, or water [employer] threatened to shut off services in your [...] Albuterol 11/19 documented as of this encounter Plan of [...] Procedure Name Priority Date/Time Associated Diagnosis Comments CT ONCOLOGY Routine 11/13/2024 1:13 PM EDT GBM (glioblastoma multiforme) (CMS-HCC) documented in this encounter Results * CT Oncology (11/13/2024 1:13 PM EDT) Narrative SYSTEMGENERATED, DOCUMENTATION - 11/13/2024 1:13 PM EDT This order was used for Radiation Treatment planning, auto-finalized, and does not contain a result. For full report details, please reach out to your physician. Effective 10/04/2020 this image will be visible to you in MyChart. Result [facility] Grey Yo MD IMG CT ORDERABLES Final Resu lt documented in this encounter Visit Diagnoses Diagnosis GBM (glioblastoma multiforme) ([facility]) Malignant neoplasm of brain, unspecified site documented in this encounter Care Teams Car Usher Relationship Specialty Start Date End Date Kristin Gracia, FUEL ATTENDANT-ARCHIVAL RECORDS CLERK PCP - General Nurse Practitioner 08/28/24 documented as of this encounter
--- OUTSIDE RECORDS SUMMARY | 2024-11-13 11:03 | XMS_ITS | Encounter Summary ---
Author Organization [employer] [facility] tem Address [id number] [address] [place] [address] Care Team Providers Care Tank Car Cleaner Name Role Phone Kristin Gracia APRN-PAVING FOREMAN Primary Care Provider Encounter Details Date Type Department Care Team (Latest Contact Info) Description 11/13/2024 11:03 AM EDT - 11/13/2024 12:07 PM EDT Hospital Encounter [facility] Oncology - Radiation Oncology [address] [place] [phone] Glioblastoma ([facility]) (Primary Dx); GBM (glioblastoma multiforme) ([facility]) Discharge Disposition: Still a Patient Social History Tobacco Use Types Packs/Day Years Used Date Smoking Tobacco: Some Days Cigarettes Smokeless Tobacco: Never Alcohol Use Standard Drinks/Week Comments Never 0 (1 standard drink = 0.6 oz pur e alcohol) [facility] Utilities Answer Date Recorded In the past 12 months has [employer], gas, oil, or water [facility] threatened to shut off services in your [...] - Inhaled Oxygen Concentration - - Weight 127.4 kg (280 lb 12.8 oz) 2024 12:14 PM EDT Height 162.6 cm (5' 4 ) 11/13/2024 12:1 4 PM EDT Body Mass Index 48.2 11/13/2024 12:14 PM EDT documented in this encounter Discharge Instructions * Patient Instructions* Nancy Hernandez RN - 11/13/2024 11:30 AM EDT Images from the original note were not included. [facility] Patient Education- Radiation Therapy to the Brain Radiation treatment to the brain may cause the following side effects: Hair loss will occur in the treated area only Typically begins 2 - 3 weeks after the start of treatment May be temporary or permanent depending on the total number of radiation treatments given If hair loss is temporary, regrowth will begin 2-3 months after treatment is complete Skin Irritation Dryness and redness can occur in the treatment area Fatigue or tiredness Feeling of fullness in the ears or decreased hearing Skin-Care Guidelines: Hygiene: gently wash skin using lukewarm water in bath or shower avoid extremes of temperature. Avoid the use of heating pads or ice packs in the treatment area Use mild soap with thorough rising, like Dove, Ivory, or Caress, or Luxembourgish spring no antibacterial soap like Dial. To minimize skin reactions, apply Mometasone 0.1% Cream (prescription necessary) to the treatment area as instructed. Ok to apply cream at any time just be sure not to use excessive amount on the treatment site. Rub in well to avoid ???caking?? it on. Moisturizing: apply hydrophilic (water-based, lanolin-free, simple lubricant or moisturizing cream.There is NO TIME restrictions to apply. Apply a thin layer to treatment area. DO NOT USE cosmetic products on irradiated skin (perfume, make-up. Avoid lanolin-based products (potential allergen) and products with SPF. DO NOT use cornstarch or baby powder, especially in area of skin folds, such as breast or underarm. DO NOT apply adhesive tape on the treatment area Shaving: use an electric razor Only. DO NOT use shaving cream, or alcohol-based products. Avoid direct sun exposure of any skin in the treatment area. Avoid the use of tanning booths If skin peeling occurs, discuss with the nurse or doctor how to manage any discomfort, and promote healing. Activity Guidelines: Get plenty of rest and sleep Maintain your normal routine and lifestyle as able but avoid overtiring yourself During times of fatigue and tiredness, pace your activity and plan for rest periods Listen to your body! You may remain sexually active during treatment unless cautioned to abstain by the doctor. Discuss any special work concerns during radiation therapy with the doctor or nurse. Nutrition: We recommend a well-balanced diet during treatment to maintain strength and recovery from treatment We recommend drinking 6-8 glasses per day of fluids to prevent dehydration. Try to consume enough calories and protein to prevent any weight loss during treatment Make a concerted effort to increased fruit and vegetable intake. See the dietitian/abrasive water jet cutter operator for specific and personalized recommendations Medications: You may need to take a steroid medication called Decadron (dexamethasone) during and after treatment to manage swelling in the brain. Do not ever change the dose of this medication unless directed by the physician or nurse. The doctor will gradually reduce your dosage of this medication over time. Do not stop taking this medicine suddenly The steroid medication may cause the following side effects: Increased appetite Weight gain or swelling Stomach upset or acid indigestion Restlessness or insomnia Mouth infection or thrush Increase in blood sugar levels Increased frequency of urination. Please notify the doctor or nurse if you develop any of the following: Headaches or an increase in frequency or severity of headaches Nausea or vomiting Changes in hearing, speech, or vision Unsteady walking Weakness of an arm or leg on one side of the body Seizures or increased change in seizure activity Supplements We would like you to find your nutrition in food first. You may eat naturally occurring fruits and vegetables that have antioxidants in them. Please do not take supplemental antioxidant pills, capsules, powders, potions, or juice. A multivitamin or any supplements prescribed by a physician does nothave to be stopped during radiation therapy. Antioxidant supplements may resume 2 weeks after completing treatment. documented in this encounter Medications at Time of Discharge [...] as of this encounter Progress Notes * Nancy Hernandez RN - 11/13/2024 11:30 AM EDT Patient presents for Orientation with RN prior to CT/Sim (from [facility]) [facility] patient education video viewed and site specific information provided, with questions answered MR/Brain for SRS treatment planning performed today RN performed Time Out with Kimmy/RTT RN and Kimmy/RTT obtain accurate weight on scale today Plan for concurrent ChemoRT with daily Temodar Pt tolerates entire procedure very well and is DC in stable condition to facility vehicle documented in this encounter Plan of Treatment Scheduled Orders Name Type Priority Associated Diagnoses Orde r Schedule Image Fusion Radiation Oncology Routine GBM (glioblastoma multiforme) ([facility]) 1 Occurrences starting 11/13/2024 until 11/13/2025 documented as of this encounter Goals Goal Patient Goal Type Associated Problems Recent Progress Patient-Stated? Author SNF General Yes Amparo Lamas LSW Note: Evaluation of progress towards goal: SNF recommended, pt agreeable to SNF stating she is not able to care for self at home at this time documented as of this encounter Visit Diagnoses Diagnosis Glioblastoma ([facility])- Primary Malignant neoplasm of brain, unspecified site GBM (glioblastoma multiforme) (CMS-HCC) Malignant neoplasm of brain, unspecified site documented in this encounter Care Teams Tank Car Cleaner Relationship Specialty Start Date End Date Kristin Gracia, QUALITY ASSURANCE CALIBRATOR-PAVING FOREMAN PCP - General Nurse Practitioner 08/28/24 documented as of this encounter
--- OUTSIDE RECORDS SUMMARY | 2024-11-13 12:08 | XMS_ITS | Encounter Summary ---
Author Organization [employer] [facility] tem Address [id number] [address] [place] [address] Care Team Providers Care Code Machine Operator Name Role Phone Harveyberenicevicky Kristin Abarca MALTED MILK MASHER-WEAVING SUPERVISOR Primary Care Provider Encounter Details Date Type Department Care Team (Latest Contact Info) Description 11/13/2024 12:08 PM EDT - 11/13/2024 11:59 PM EDT Hospital Encounter [facility] Oncology - Radiation Oncology [address] [place] [phone] Discharge Disposition: Still a Patient Social History Tobacco Use Types Packs/Day Years Used Date Smoking Tobacco: Some Days Cigarettes Smokeless Tobacco: Never Alcohol Use Standard Drinks/Week Comments Never 0 (1 standard drink = 0.6 oz pur e alcohol) [facility] Utilities Answer Date Recorded In the past 12 months has e [employer], gas, oil, or water company threatened to [...] 11/13/2024 1:13 PM EDT GBM (glioblastoma multiforme) ([facility]) documented in this encounter Results * CT [...] on filedocumented in this encounter Care Teams Code Machine Operator Relationship Specialty Start Date End Date Kristin Gracia, MALTED MILK MASHER-WEAVING SUPERVISOR PCP - General Nurse Practitioner 08/28/24 documented as of this encounter
--- OUTSIDE RECORDS SUMMARY | 2024-11-25 07:15 | XMS_ITS | Encounter Summary ---
Author Organization [employer] tem Address [facility] [id number] [address] [place] [address] Care Team Providers Care Breaker Layer Name Role Phone Harveyberenicevicky Kristin Abarca APRN-RAIL WALKER Primary Care Provider Encounter Details Date Type Department Care Team (Late st Contact Info) Description 11/25/2024 7:15 AM EDT Hospital Encounter [facility] Oncology - Radiation Oncology [address] [place] [phone] Social History Tobacco Use Types Packs/Day Years Used Date Smoking Tobacco: Some Days Cigarettes Smokeless Tobacco: Never Alcohol Use Standard Drinks/Week Comments Never 0 (1 standard drink = 0.6 oz pur e alcohol) [facility] Utilities Answer Date Recorded In [...] on filedocumented in this encounter Care Teams Breaker Layer Relationship Specialty Start Date End Date Kristin Gracia, AGRICULTURAL CROP FARM MANAGER-RAIL WALKER PCP - General Nurse Practitioner 08/28/24 documented as of this encounter
[2024-11-27] VITALS (38 sets, daily range): BP systolic 54–115; BP diastolic 29–53; PULSE 80–99; TEMP 37.5–37.8; O2SAT 90–100
--- NOTE | 2024-11-27 20:01 | XR_ITS ---
The [address] [address] Patient Name: NITHYA VASQUEZ MRN: [id number] date: 1970 Sex: F Assigned Patient Location: ED.MAIN Current Patient Location: ED.MAIN Accession/Order Number: [id number] Exam Date: 11/27/2024 20:50 Report Date: 11/27/2024 20:51 At the request of: AJ RAMIREZ DO Procedure: XR chest 1V PA CHEST: CLINICAL HISTORY: fever NOS COMPARISON: 10/17/2024 Findings: Low lung volumes. Enlarged cardiomediastinal silhouette with likely mild perihilar congestion. Right-sided pleural-parenchymal disease identified likely airspace disease and effusion. Minimal patchy opacity left lung base. No pneumothorax. XR/XR chest 1V IMPRESSION: Mild central vascular congestion. Predominantly right basilar pleural-parenchymal disease. Impression dictated by: Franklin Paniagua M.D. 11/27/2024 8:51 PM Dictation Location: [place] [address] Electronically authenticated by: [id number] Y Date: 11/27/2024 20:51
--- NOTE | 2024-11-27 20:01 | ECG_ITS ---
The [facility] Test Date: 2024-11-27 Pat Name: NITHYA VASQUEZ Department: Room: - Gender: Female Television Reporter: : 1970 Requested By: [id number] Order Number: [id number] Reading MD: ELY MASTERS Measurements Intervals [place] Rate: 92 P: 71 AL: 140 QRS: 62 QRSD: 80 T: 51 QT: 346 QTc: 395 Interpretive Statements 1100 Sinus rhythm 6220 Possible left atrial enlargement 9130 borderline ECG Compared to ECG 10/18/2024 07:40:37 No significant changes Electronically Signed On 12-01-2024 16:16:18 EDT by ELY MASTERS
--- OUTSIDE RECORDS SUMMARY | 2024-11-27 20:02 | XMS_ITS | Encounter Summary ---
Author Organization [facility] Address [facility] [place] [address] Care Team Providers Care Damage Cutter Name Role Phone Kirk Wyatt Segundo Primary Care Provider Frances Hills (Rn) mysql developer Provider Valdez Bhandari MD Primary Care Provider [phone] Dian Smith PA-C Unavailable [phone] Malinda Lopez APRN.CARDIAC TECHNOLOGIST Unavailable + [phone] Source Comments In the event this information is protected by the Federal Confidentiality of Alcohol and Drug AbusePatient Records regulations: The Federal rules restrict any use of the information to criminally investigate or prosecute any alcohol or drug abuse patient.[facility] Encounter Details Date Type Department Care Team (Late st Contact Info) Description 09/14/2015 Patient Msg Medical Records [address] [place] [address] Provider, [facility] labs Social History Tobacco Use [...] documented as of this encounter Care Teams Damage Cutter Relationship Specialty Start Date End Date Wyatt Bradley PCP - General Internal Medicine 05/21/12 12/05/17 Frances Hills (Rn), RN PCP - General 12/06/17 10/31/20 Valdez Acosta MD [address] [place] [address] PCP - General Internal Medicine 11/01/20 Dian Smith PA-C [address] [place], [place] [phone] Firearms Assembly Supervisor Internal Medicine 04/26/24 05/21/24 Malinda Lopez, PORCELAIN ENAMEL LABORER.[facility] [address] [place] [phone] Firearms Assembly Supervisor Family Medicine 04/26/24 documented as of this encounter
--- OUTSIDE RECORDS SUMMARY | 2024-11-27 20:02 | XMS_ITS | Encounter Summary ---
Author Organization [facility] Address [address] [place] [address] Care Team Providers Care Fuel System Maintenance Worker Name Role Phone HarveyKristin yu OIL FIELD ROUSTABOUT Unavailable [phone] Maxim Lanza MD Primary Care Provider [phone] Encounter Details Date Type Department Care Team (Late st Contact Info) Description 09/15/2024 Abstract [facility] [address] [place] [phone] Unallocated, Noms Provider, [address] [facility] [place], [place] [phone] Social History Tobacco Use Types Packs/Day Years [...] week 06/04/2023 How often do you attend [facility] or sikhism services? 1 to 4 times per year 06/04/2023 Do you belong to any clubs o r organizations such as catholic groups, unions, fraternal [...] slept in a fdc (including now)? No 06/04/2023 Comments Unknown Sex [...] documented as of this encounter Care Teams Fuel System Maintenance Worker Relationship Specialty Start Date End Date Maxim Lanza MD [address] [place] [address] PCP - General Family Medicine 07/15/23 Kristin Gracia NP [address] [place] [address] Primary Care Provider Family Medicine 05/20/22 documented as of this encounter
--- OUTSIDE RECORDS SUMMARY | 2024-11-27 20:02 | XMS_ITS | Encounter Summary ---
Author Organization [facility] Address [facility] [place] [address] Care Team Providers Care Mechanical Design Engineer Facilities Name Role Phone Valdez Acosta MD Primary Care Provider [phone] Dian Smith PA-C Unavailable + [phone] Malinda Lopez ZINC MINER BLASTING.SENIOR WRITER Unavailable + [phone] Source Comments In the event this information is protected by the Federal Confidentiality of Alcohol and Drug AbusePatient Records regulations: The Federal rules restrict any use of the information to criminally investigate or prosecute any alcohol or drug abuse patient.[facility] Encounter Details Date Type Department Care Team (Late st Contact Info) Description 06/13/2021 Patient [facility] [address] [place] [phone] Gi Khan APRN.SENIOR WRITER [address] [place] [address] tc Social History Tobacco Use [...] Never 08/02/2020 How often do you attend orthodoxy or denominational serv ices? Never 08/02/2020 Do you belong to any clubs o r organizations such as orthodoxy groups, unions, fraternal or athletic groups, or [...] Answer Date Recorded PHQ-2 score 5 10/30/2020 [facility] [...] 04/27/2020 Data from: https://www.neighborhoodatlas.medicine.[facility].edu/. Last address used for calculation Not on [...] on filedocumented in this encounter Care Teams Mechanical Design Engineer Facilities Relationship Specialty Start Date End Date Valdez Acosta MD [address] [place] [address] PCP - General Internal Medicine 11/01/20 Dian Smith PA-C [address] [place] [address] Backend Python Developer Internal Medicine 04/26/24 05/21/24 Malinda Lopez APRN.SENIOR WRITER [address] [place] [phone] Backend Python Developer Family Medicine 04/26/24 documented as of this encounter
--- OUTSIDE RECORDS SUMMARY | 2024-11-27 20:02 | XMS_ITS | Encounter Summary ---
Author Organization [facility] Address [facility] [place] [address] Care Team Providers Care Video Photographer Name Role Phone Valdez Acosta MD Primary Care Provider [phone] Dian Smith PA-C Unavailable [phone] Malinda Lopez APRN.WIND FIELD MANAGER Unavailable + [phone] Source Comments In the event this information is protected by the Federal Confidentiality of Alcohol and Drug AbusePatient Records regulations: The Federal rules restrict any use of the information to criminally investigate or prosecute any alcohol or drug abuse patient.[facility] Encounter Details Date Type Department Care Team (Late st Contact Info) Description 04/22/2021 Patient Msg Neurology [address] [phone] Provider, Ccf Appointment with Aylin Garrison Social [...] How often do you attend restoration or hoahaoism serv ices? Never 08/02/2020 Do you belong [...] Answer Date Recorded PHQ-2 score 5 10/30/2020 [employer] [facility] - Occupational Stress Questionnaire Answer Date [...] Data from: https://www.neighborhoodatlas.medicine.[facility].edu/. Last address used for calculation Not on [...] on filedocumented in this encounter Care Teams Video Photographer Relationship Specialty Start Date End Date Valdez Acosta MD [address] [place] [address] PCP - General Internal Medicine 11/01/20 Dian Smith PA-C [address] [place] [address] Property Management Bookkeeper Internal Medicine 04/26/24 05/21/24 Malinda Lopez APRN.WIND FIELD MANAGER [address] [place] [phone] Property Management Bookkeeper Family Medicine 04/26/24 documented as of this encounter
--- OUTSIDE RECORDS SUMMARY | 2024-11-27 20:02 | XMS_ITS | Encounter Summary ---
Author Organization [facility] Address [address] [place] [address] Care Team Providers Care Turner Off Name Role Phone Valdez Acosta MD Primary Care Provider +- [phone] Dian Smith PA-C Unavailable + [phone] Malinda Lopez APRN.CAR DUMPER OPERATOR Unavailable + [phone] Source Comments In the event this information is protected by the Federal Confidentiality of Alcohol and Drug AbusePatient Records regulations: The Federal rules restrict any use of the information to criminally investigate or prosecute any alcohol or drug abuse patient.[facility] Encounter Details Date Type Department Care Team (Late st Contact Info) Description 11/12/2021 [place] [address] Provider, Ccf Questionnaire Submission Social History Tobacco [...] Never 08/02/2020 How often do you attend yazidi or sabianist serv ices? Never 08/02/2020 Do you belong to any clubs o r organizations such as yazidi groups, unions, fraternal or athletic groups, or [...] Answer Date Recorded PHQ-2 score 5 09/15/2021 [facility] of Occupat ional Health - [...] on file 11/14/2021 Data from: https://www.neighborhoodatlas.medicine.[facility].edu/. Last address used for calculation [address] [...] on filedocumented in this encounter Care Teams Turner Off Relationship Specialty Start Date End Date Valdez Acosta MD [address] [place] [address] PCP - General Internal Medicine 11/01/20 Dian Smith PA-C [address] [place] [address] Tape Editor Internal Medicine 04/26/24 05/21/24 Mlainda Lopez APRN.CAR DUMPER OPERATOR [address] [place] [address] Tape Editor Family Medicine 04/26/24 documented as of this encounter
--- OUTSIDE RECORDS SUMMARY | 2024-11-27 20:02 | XMS_ITS | Encounter Summary ---
Author Organization [facility] Address [facility] [place] [address] Care Team Providers Care Canadian Bacon Tier Name Role Phone Kirk Wyatt Segundo Primary Care Provider Frances Hills (Rn) concrete mason Provider Valdez Bhandari MD Primary Care Provider [phone] Dian Smith PA-C Unavailable + [phone] Malinda Lopez APRN.ELECTROPHONIC ENGINEER Unavailable + [phone] Source Comments In the event this information is protected by the Federal Confidentiality of Alcohol and Drug AbusePatient Records regulations: The Federal rules restrict any use of the information to criminally investigate or prosecute any alcohol or drug abuse patient.[facility] Encounter Details Date Type Department Care Team (Late st Contact Info) Description 05/27/2014 Patient Msg Medical Records [address] [place] [address] Provider, Ccf Research Invitation Social History Tobacco [...] documented as of this encounter Care Teams Canadian Bacon Tier Relationship Specialty Start Date End Date Wyatt Bradley PCP - General Internal Medicine 05/21/12 12/05/17 Frances Hills (Rn), RN PCP - General 12/06/17 10/31/20 Valdez Acosta MD [address] [place] [address] PCP - General Internal Medicine 11/01/20 Dian Smith PA-C [address] [place] [address] Electronic Engineering Technician Internal Medicine 04/26/24 05/21/24 Malinda Lopez, FINANCIAL AIDS OFFICER.ELECTROPHONIC ENGINEER [address] [place] [address] Electronic Engineering Technician Family Medicine 04/26/24 documented as of this encounter
--- OUTSIDE RECORDS SUMMARY | 2024-11-27 20:02 | XMS_ITS | Encounter Summary ---
Author Organization [facility] Address [facility] [place] [address] Care Team Providers Care Assistant Director Of Nursing Name Role Phone Kirk Wyatt Segundo Primary Care Provider Frances Hills (Rn) budget engineer Provider Valdez Bhandari MD Primary Care Provider [phone] Dian Smith PA-C Unavailable + [phone] Malinda Lopez APRN.PIG CASTER Unavailable + [phone] Source Comments In the event this information is protected by the Federal Confidentiality of Alcohol and Drug AbusePatient Records regulations: The Federal rules restrict any use of the information to criminally investigate or prosecute any alcohol or drug abuse patient.[facility] Encounter Details Date Type Department Care Team (Late st Contact Info) Description 08/30/2016 Patient Msg Medical Records [address] [place] [address] Provider, Ccf Labs Social History Tobacco Use [...] documented as of this encounter Care Teams Assistant Director Of Nursing Relationship Specialty Start Date End Date Wyatt Bradley PCP - General Internal Medicine 05/21/12 12/05/17 Frances Hills (Rn), RN PCP - General 12/06/17 10/31/20 Valdez Acosta MD [address] [place] [address] PCP - General Internal Medicine 11/01/20 Dian Smith PA-C [address] [place], [place] [phone] Plant Reliability Engineer Internal Medicine 04/26/24 05/21/24 Malinda Lopez, BRIDGE MANAGER.[facility] [address] [place] [address] [phone] Plant Reliability Engineer Family Medicine 04/26/24 documented as of this encounter
--- OUTSIDE RECORDS SUMMARY | 2024-11-27 20:02 | XMS_ITS | Encounter Summary ---
Author Organization [facility] Address [address] [place] [address] Care Team Providers Care Bow Maker Name Role Phone Frances Hills (Rn) metallurgical analyst Provider Valdez Bhandari MD Primary Care Provider [phone]- [phone] Dian Smith PA-C Unavailable + [phone] Malinda Lopez APRN.[facility] Unavailable + [phone] Source Comments In the event this information is protected by the Federal Confidentiality of Alcohol and Drug AbusePatient Records regulations: The Federal rules restrict any use of the information to criminally investigate or prosecute any alcohol or drug abuse patient.[facility] Encounter Details Date Type Department Care Team (Late st Contact Info) Description 08/03/2020 [facility] [address] [place] [address] Aylin Garrison PA-C [address] [place] [address] RE: Non-Urgent Medical Question Social History [...] Never 08/02/2020 How often do you attend yarsanism or faith serv ices? Never 08/02/2020 Do you belong to any clubs o r organizations such as yarsanism groups, unions, fraternal or athletic groups, or [...] Answer Date Recorded PHQ-2 score 3 08/02/2020 [facility] of Occupat ional Health - Occupational Stress [...] N ot on file 04/27/2020 Data from: https://www.neighborhoodatlas.medicine.[facility].edu/. Last address used for calculation Not [...] documented as of this encounter Care Teams Bow Maker Relationship Specialty Start Date End Date August (Rn), RN PCP - General 12/06/17 10/31/20 Valdez Acosta MD [address] [place] [address] PCP - General Internal Medicine 11/01/20 Dian Smith PA-C [address] [place] [address] Sales And Service Engineer Internal Medicine 04/26/24 05/21/24 Malinda Lopez, BOAT RIGGER.DANCE HALL HOST/HOSTESS [address] [place], [place] [address] [place] [address] Sales And Service Engineer Family Medicine 04/26/24 documented as of this encounter
--- OUTSIDE RECORDS SUMMARY | 2024-11-27 20:02 | XMS_ITS | Encounter Summary ---
Author Organization [facility] Address [address] [place] [address] Care Team Providers Care Systems Designer Name Role Phone Valdez Acosta MD Primary Care Provider [phone] Dian Smith PA-C Unavailable + [phone] Malinda Lopez APRN.BODY BUILDER Unavailable + [phone] Source Comments In the event this information is protected by the Federal Confidentiality of Alcohol and Drug AbusePatient Records regulations: The Federal rules restrict any use of the information to criminally investigate or prosecute any alcohol or drug abuse patient.[facility] Encounter Details Date Type Department Care Team (Late st Contact Info) Description 03/15/2021 Patient [facility] [address] [place] [id number] Provider, Ccf Please call to reschedule Follow [...] Never 08/02/2020 How often do you attend advent or yazidi serv ices? Never 08/02/2020 Do you belong [...] Answer Date Recorded PHQ-2 score 5 10/30/2020 [facility] - Occupational Stress Questionnaire Answer Date [...] ot on file 04/27/2020 Data from: https://www.neighborhoodatlas.medicine.[facility].edu/. Last address used for calculation Not [...] on filedocumented in this encounter Care Teams Systems Designer Relationship Specialty Start Date End Date Valdez Acosta MD [address] [place] [address] PCP - General Internal Medicine 11/01/20 Dian Smith PA-C [facility] [place] [address] Warehouse Loader Internal Medicine 04/26/24 05/21/24 Malinda Lopez APRN.BODY BUILDER [address] [place] [address] Warehouse Loader Family Medicine 04/26/24 documented as of this encounter
--- OUTSIDE RECORDS SUMMARY | 2024-11-27 20:02 | XMS_ITS | Clinical Summary ---
Author Organization [facility] Address [address] [place] [address] Care Team Providers Care Toddler Teacher Name Role Phone Valdez Acosta MD Primary Care Provider [phone] Malinda Lopez APRN.FUNERAL DIRECTOR/EMBALMER Unavailable [phone] Allergies No known active allergies Medications * [...] Never 08/02/2020 How often do you attend hindu or anabaptist serv ices? Never 08/02/2020 Do you belong to any clubs o r organizations such as hindu groups, unions, fraternal or athletic groups, or [...] Answer Date Recorded PHQ-2 score 5 09/05/2023 [facility] - Occupational Stress Questionnaire Answer Date Recorded [...] is lower risk 4 09/20/2022 Data from: https://www.neighborhoodatlas.medicine.[facility].edu/. Last address used for calculation 22[address] [...] - 8.0 g/dL 05/22/2023 2:38 PM EST [facility] Albumin 4.0 3.9 - 4.9 g/dL 05/22/2023 2:38 PM EST [facility] Calcium, Total 9.4 8.5 - 10.2 mg/dL 05/22/2023 2:38 PM EST [facility] Bilirubin, Total 0.3 0.2 - 1.3 mg/dL 05/22/2023 2:38 PM EST [facility] Alkaline Phosphatase 90 34 - 123 U/L 05/22/2023 2:38 PM EST [facility] AST 25 13 - 35 U/L 05/22/2023 2:38 PM EST [facility] ALT 23 7 - 38 U/L 05/22/2023 2:38 PM EST [facility] Glucose 88 74 - 99 mg/dL 05/22/2023 2:38 PM EST [facility] Comment: The Chinese Diabetes Association (ADA) provides guidance for cutoff [...] Standards of Medical Care in Diabetes 2016, Chinese Diabetes Association. Diabetes Care. 2016.39(Suppl 1). BUN 17 7 - 21 mg/dL 05/22/2023 2:38 PM EST [facility] Creatinine 1.04(H) 0.58 - 0.96 mg/dL 05/22/2023 2:38 PM EST [facility] Sodium 143 136 - 144 mmol/L 05/22/2023 2:38 PM EST [facility] Potassium 3.7 3.7 - 5.1 mmol/L 05/22/2023 2:38 PM [facility] Chloride 103 97 - 105 mmol/L 05/22/2023 2:38 PM EST [facility] CO2 27 22 - 30 mmol/L 05/22/2023 2:38 PM EST [facility] Anion Gap 13 9 - 18 mmol/L 05/22/2023 2:38 PM EST [facility] Estimated Glomerular Filtration Rate 64 >=60 mL/min/1. 73m 05/22/2023 2:38 PM EST [facility] Comment:Estimated Glomerular Filtration Rate (eGFR) is [...] us Aylin Garrison PA-C LABORATORY Final Result [facility] [address] [place] [address], * (ABNORMAL) LIPID PANEL BASIC (09/18/2021 8:07 AM EDT) [facility] Cholesterol, Total 142 <200 mg/dL 09/18/2021 4:40 PM EDT [facility] Comment: <200 mg/dL, Desirable 200-239 mg/dL, Borderline high >239 mg/dL, High Triglyceride 157(H) <150 mg/dL 09/18/2021 4:40 PM EDT [facility] Comment: <150 mg/dL, Normal 150-199 mg/dL, Borderline high 200-499 mg/dL, High >499 mg/dL, Very high HDL Cholesterol 39(L) >39 mg/dL 4:40 PM T [facility] Comment: 40-59 mg/dL, Acceptable >59 mg/dL, High: Negative risk factor for coronary heart disease <40 mg/dL, Low: Positive risk factor for coronary heart disease Non HDL Cholesterol 103 <130 mg/dL 09/18/2021 4:40 PM EDT [facility] Comment: <130 mg/dL, Optimal 130-159 mg/dL, Near optimal/above optimal 160-189 mg/dL, Borderline high 190-219 mg/dL, High >219 mg/dL, Very high Secondary prevention optimal non HDL Cholesterol levels are recommended to be <100 mg/dL Fasting Time 14 hours hrs 09/18/2021 4:40 PM T [facility] VLDL Cholesterol 31(H) <30 mg/dL 09/19/19 4:40 PM EDT [facility] TC:HDL Ratio 3.64 <5.10 09/18/2021 4:40 PM T [facility] LDL Cholesterol, Calculated 72 <100 mg/dL 09/18/2021 4:40 PM T [facility] Comment: <100 mg/dL, Optimal 100-129 mg/dL, Near optimal/above optimal 130-159 mg/dL, Borderline high 160-189 mg/dL, High >189 mg/dL, Very high Secondary prevention optimal LDL Cholesterol levels are recommended to be < 70 mg/dL LDL:HDL Ratio 1.85 <2.54 09/18/2021 4:40 PM T [facility] Comment: Reference: 1. National Cholesterol Education Program ATP III Guideline At-A-Glance Quick Desk Reference: National Heart, Lung, and Blood [place]. National Institutes of Health. 2001: NIH Publication No. 01-3305. 2. An International Atherosclerosis Society position paper: global recommendations for the management of dyslipidemia: executive summary, Atherosclerosis. 2014: 232(2):410-413. Blood BLOOD SPECIMEN / Unknown Venipuncture / Unknown 09/18/2021 8:07 AM EDT 09/18/2021 3:12 PM EDT us Aylin Garrison PA-C LABORATORY Final Result [facility] [address] [facility] Desk [address] [place] [address], * HEP REMOTE PANEL BL (07/15/2020 11:23 AM EST) Hep B Core Ab, Total Negative Negative 07/15/2020 7:02 PM EST [facility] [employer] Hep C Antibody IA Negative Negative 07/15/2020 7:03 PM EST [facility] HBsAg Negative Negative 07/15/2020 7:03 PM EST [facility] Hep B Surface Ab, Qual Negative Negative 07/15/2020 7:03 PM EST [facility] Comment:NEGATIVE Blood BLOOD SPECIMEN / Unknown 07/15/2020 11:23 AM EST 07/15/2020 11:25 AM EST Prosper Zheng MD, PhD LABORATORY Final Resu lt [facility] [address] [facility] [place] [address] [facility] [address] [place] [address] from Last 3 Months or Most Recently Relevant to Health Maintenance [place] [address] [place] [address] MEDICARE PPO Care Teams Toddler Teacher Relationship Specialty Start Date End Date Valdez Acosta MD [address] [place] [address] PCP - General Internal Medicine 11/01/20 Malinda Lopez, INTERNET RETAILER.[facility] [address] [place] [address] Air Traffic Coordinator Family Medicine 04/26/24
--- OUTSIDE RECORDS SUMMARY | 2024-11-27 20:02 | XMS_ITS | Encounter Summary ---
Author Organization [facility] Address [address] [place] [address] Care Team Providers Care Ab Initio Etl Developer Name Role Phone Kristin Gracia LOAD OUT WORKER Unavailable [phone] Maxim Lanza MD Primary Care Provider [phone] Maxim Lanza MD Primary Care Provider [phone] Encounter Details Date Type Department Care Team (Late st Contact Info) Description 05/09/2023 [facility] [address] [place] [phone] Kristin Gracia NP [address] [place] [address] Social History Tobacco Use Types Packs/Day Years [...] How often do you attend chur or catholic services? Never 05/01/2023 Do you belong to any clubs o r organizations such as mosque groups, unions, fraternal or athletic groups, or [...] Recorded Patient Health Questionnaire-2 Score 2 05/01/2023 [facility] of Occupat ional Health - [...] to sleep or slept in a senior care (including now)? No 05/01/2023 Comments Unknown Sex [...] documented as of this encounter Care Teams Ab Initio Etl Developer Relationship Specialty Start Date End Date Maxim Lanza MD [address] [place] [address] PCP - General Family Medicine 04/22/23 07/14/23 Maxim Lanza MD [address] [place] [address] PCP - General Family Medicine 07/15/23 Kristin Gracia NP [address] [place] [address] Primary Care Provider Family Medicine 05/20/22 documented as of this encounter
--- OUTSIDE RECORDS SUMMARY | 2024-11-27 20:02 | XMS_ITS | Encounter Summary ---
Author Organization [facility] Address [address] [place] [address] Care Team Providers Care Bond Writer Name Role Phone Valdez Acosta MD Primary Care Provider [phone] Dian Smith PA-C Unavailable + [phone] Malinda Lopez APRN.BUSINESS ANALYST [employer] Unavailable + [phone] Source Comments In the event this information is protected by the Federal Confidentiality of Alcohol and Drug AbusePatient Records regulations: The Federal rules restrict any use of the information to criminally investigate or prosecute any alcohol or drug abuse patient.[facility] Encounter Details Date Type Department Care Team (Late st Contact Info) Description 11/06/2020 Patient Msg MRI J [address] [place] [address] Provider, Ccf MRI Screening Social [...] Never 08/02/2020 How often do you attend moravian or mosque serv ices? Never 08/02/2020 Do you belong [...] Answer Date Recorded PHQ-2 score 5 10/30/2020 [facility] of Occupat ional Health - Occupational [...] on file 04/27/2020 Data from: https://www.neighborhoodatlas.medicine.[facility].edu/. Last address used for calculation Not on [...] on filedocumented in this encounter Care Teams Bond Writer Relationship Specialty Start Date End Date Valdez Acosta MD [address] [place] [address] PCP - General Internal Medicine 11/01/20 Dian Smith PA-C [address] [place] [address] Career Center Director Internal Medicine 04/26/24 05/21/24 Malinda Lopez APRN.BUSINESS ANALYST [employer] [address] [place] [address] Career Center Director Family Medicine 04/26/24 documented as of this encounter
--- OUTSIDE RECORDS SUMMARY | 2024-11-27 20:02 | XMS_ITS | Encounter Summary ---
Author Organization [facility] Address [address] [place] [address] Care Team Providers Care Radio News Writer Name Role Phone Valdez Acosta MD Primary Care Provider [phone] Dian Smith PA-C Unavailable [phone] Malinda Lopez APRN.[facility] Unavailable + [phone] Source Comments In the event this information is protected by the Federal Confidentiality of Alcohol and Drug AbusePatient Records regulations: The Federal rules restrict any use of the information to criminally investigate or prosecute any alcohol or drug abuse patient.[facility] Encounter Details Date Type Department Care Team (Late st Contact Info) Description 02/20/2022 Patient Msg Neuropyschology [address] [place] [address] Leslie Dailey, PhD [address] [place] [address] Appointment Cancellation Request Social History Tobacco Use [...] How often do you attend zoroastrianism or presybeterian serv ices? Never 08/02/2020 Do you belong [...] Answer Date Recorded PHQ-2 score 5 09/15/2021 [facility] of Occupat ional Health [...] N ot on file 11/14/2021 Data from: https://www.neighborhoodatlas.medicine.[facility].edu/. Last address used for calculation [address] [...] on filedocumented in this encounter Care Teams Radio News Writer Relationship Specialty Start Date End Date Valdez Acosta MD [address] [place] [address] PCP - General Internal Medicine 11/01/20 Dian Smith PA-C [address] [place] [address] Slitter And Cutter Operator Internal Medicine 04/26/24 05/21/24 Malinda Lopez APRN.BASEBALL UMPIRE FOR [employer] [address] [place] [address] Slitter And Cutter Operator Family Medicine 04/26/24 documented as of this encounter
--- OUTSIDE RECORDS SUMMARY | 2024-11-27 20:02 | XMS_ITS | Encounter Summary ---
Author Organization [facility] Address [facility] [place] [address] Care Team Providers Care Financial Intern Name Role Phone Frances Hills (Rn) stunner and shackler Provider Valdez Bhandari MD Primary Care Provider [phone] Dian Smith PA-C Unavailable [phone] Malinda Lopez APRN.[facility] Unavailable + [phone] Source Comments In the event this information is protected by the Federal Confidentiality of Alcohol and Drug AbusePatient Records regulations: The Federal rules restrict any use of the information to criminally investigate or prosecute any alcohol or drug abuse patient.[facility] Encounter Details Date Type Department Care Team (Late st Contact Info) Description 09/15/2020 [facility] [address] [place] [address] Aylin Garrison PA-C [address] [place] [address] RE: Non-Urgent Medical Question Social History [...] Never 08/02/2020 How often do you attend hoahaoism or taoism serv ices? Never 08/02/2020 Do you belong to any clubs o r organizations such as hoahaoism groups, unions, fraternal or athletic groups, or [...] Answer Date Recorded PHQ-2 score 3 08/02/2020 [facility] of Occupat ional Health - Occupational Stress [...] slept in a fci (including now)? No 08/02/2020 Area Deprivation Index Answer Date Chris rded National Score (1-100), lower number is lower ri sk Not on file 04/27/2020 State Score (1-10), lower number is lower risk N ot on file 04/27/2020 Data from: https://www.neighborhoodatlas.medicine.[facility].edu/. Last address used for calculation Not [...] on filedocumented in this encounter Care Teams Financial Intern Relationship Specialty Start Date End Date Reinier August (Rn), RN PCP - General 12/06/17 10/31/20 Valdez Acosta MD [address] [place] [address] PCP - General Internal Medicine 11/01/20 Dian Smith PA-C [facility] [place] [address] Outdoor Adventure Guides Internal Medicine 04/26/24 05/21/24 Malinda Lopez, LOGISTICS DIRECTOR.STORM SASH MAKER [address] [place] [address] Outdoor Adventure Guides Family Medicine 04/26/24 documented as of this encounter
--- OUTSIDE RECORDS SUMMARY | 2024-11-27 20:02 | XMS_ITS | Encounter Summary ---
Author Organization [facility] Address [facility] [place] [address] Care Team Providers Care Executive Account Manager Name Role Phone Kirk Wyatt Segundo Primary Care Provider Frances Hills (Rn) pharmacy operations coordinator Provider Valdez Bhandari MD Primary Care Provider [phone] Dian Smith PA-C Unavailable + [phone] Malinda Lopez APRN.DRUM PRINTER Unavailable + [phone] Source Comments In the event this information is protected by the Federal Confidentiality of Alcohol and Drug AbusePatient Records regulations: The Federal rules restrict any use of the information to criminally investigate or prosecute any alcohol or drug abuse patient.[facility] Encounter Details Date Type Department Care Team (Late st Contact Info) Description 06/26/2016 Patient Msg Medical Records [address] [place] [address] Provider, Ccf labs Social History Tobacco Use [...] documented as of this encounter Care Teams Executive Account Manager Relationship Specialty Start Date End Date Wyatt Bradley PCP - General Internal Medicine 05/21/12 12/05/17 Frances Hills (Rn), RN PCP - General 12/06/17 10/31/20 Valdez Acosta MD [address] [place] [address] PCP - General Internal Medicine 11/01/20 Dian Smith PA-C [address] [place], [place] [phone] Inspector Outside Steam Distribution Internal Medicine 04/26/24 05/21/24 Malinda Lopez, ANESTHESIA ASSISTANT.[facility] [address] [place] [address] [phone] Inspector Outside Steam Distribution Family Medicine 04/26/24 documented as of this encounter
--- OUTSIDE RECORDS SUMMARY | 2024-11-27 20:02 | XMS_ITS | Encounter Summary ---
Author Organization [facility] Address [facility] [place] [address] Care Team Providers Care Airworthiness Safety Inspector Name Role Phone Kirk Wyatt Segundo Primary Care Provider Frances Hills (Rn) tire maintenance technician Provider Valdez Bhandari MD Primary Care Provider [phone] Dian Smith PA-C Unavailable + [phone] Malinda Lopez APRN.ELECTRIC SOLDERER Unavailable + [phone] Source Comments In the event this information [...] Description 08/11/2015 Patient Msg Medical Records [address] [place] [address] Provider, Ccf CBC results Social History Tobacco [...] documented as of this encounter Care Teams Airworthiness Safety Inspector Relationship Specialty Start Date End Date Wyatt Bradley PCP - General Internal Medicine 05/21/12 12/05/17 Frances Hills (Rn), MOE PCP - General 12/06/17 10/31/20 Valdez Acosta MD [address] [facility] [place] [address] PCP - General Internal Medicine 11/01/20 Dian Smith PA-C [address] [place], [place] [id number] Stone Circular Sawyer Internal Medicine 04/26/24 05/21/24 Malinda Lopez, EXECUTOR OF ESTATE.[facility] [address] [place] [address] [phone] Stone Circular Sawyer Family Medicine 04/26/24 documented as of this encounter
--- OUTSIDE RECORDS SUMMARY | 2024-11-27 20:02 | XMS_ITS | Encounter Summary ---
Author Organization [facility] Address [address] [place] [address] Care Team Providers Care Outdoor Fitness Trainer Name Role Phone Valdez Acosta MD Primary Care Provider [phone] Dian Smith PA-C Unavailable + [phone] Malinda Lopez APRN.INSIDE ACCOUNT REPRESENTATIVE Unavailable + [phone] Source Comments In the event this information is protected by the Federal Confidentiality of Alcohol and Drug AbusePatient Records regulations: The Federal rules restrict any use of the information to criminally investigate or prosecute any alcohol or drug abuse patient.[facility] Encounter Details Date Type Department Care Team (Late st Contact Info) Description 11/08/2020 [facility] [address] [id number] Lanie Lombardi APRN.INSIDE ACCOUNT REPRESENTATIVE [address] [address] RE: Test Result Question Social History Tobacco [...] How often do you attend taoist or adventist serv ices? Never 08/02/2020 Do you belong [...] PHQ-2 score 5 10/30/2020 [facility] of Occupat ional Health - [...] N ot on file 04/27/2020 Data from: https://www.neighborhoodatlas.medicine.[facility].edu/. Last address used for calculation Not [...] on filedocumented in this encounter Care Teams Outdoor Fitness Trainer Relationship Specialty Start Date End Date Valdez Acosta MD [address] [place] [address] PCP - General Internal Medicine 11/01/20 Dian Smith PA-C [address] [place] [address] Creative Art Therapist Internal Medicine 04/26/24 05/21/24 Malinda Lopez APRN.INSIDE ACCOUNT REPRESENTATIVE [address] [place] [address] [phone] Creative Art Therapist Family Medicine 04/26/24 documented as of this encounter
--- OUTSIDE RECORDS SUMMARY | 2024-11-27 20:02 | XMS_ITS | Encounter Summary ---
Author Organization [facility] Address [facility] [place] [address] Care Team Providers Care Sprinkler Inspector Name Role Phone Frances Hills (Rn) fish boning machine feeder Provider Valdez Bhandari MD Primary Care Provider +- [phone] Dian Smith PA-C Unavailable + [phone] Malinda Lopez APRN.[facility] Unavailable + [phone] Source Comments In the event this information is protected by the Federal Confidentiality of Alcohol and Drug AbusePatient Records regulations: The Federal rules restrict any use of the information to criminally investigate or prosecute any alcohol or drug abuse patient.[facility] Encounter Details Date Type Department Care Team (Late st Contact Info) Description 10/19/2020 [facility] [address] [place] [address] Aylin Garrison PA-C [address] [place] [address] RE: Non-Urgent Medical Question Social History [...] Never 08/02/2020 How often do you attend jehovah's witness or anabaptism serv ices? Never 08/02/2020 Do you belong to any clubs o r organizations such as jehovah's witness groups, unions, fraternal or athletic groups, or [...] Recorded PHQ-2 score 3 08/02/2020 [facility] [place] of Occupat ional Health - Occupational Stress [...] N ot on file 04/27/2020 Data from: https://www.neighborhoodatlas.medicine.[facility].edu/. Last address used for calculation [...] on filedocumented in this encounter Care Teams Sprinkler Inspector Relationship Specialty Start Date End Date ReinierAugust (Rn), RN PCP - General 12/06/17 10/31/20 Valdez Acosta MD [address] [place] [address] PCP - General Internal Medicine 11/01/20 Dian Smith PA-C [address] [place] [address] Frame Table Operator Helper Internal Medicine 04/26/24 05/21/24 Malinda Lopez APRN.OIL SEAL ASSEMBLER [address] [place] [address] Frame Table Operator Helper Family Medicine 04/26/24 documented as of this encounter
--- OUTSIDE RECORDS SUMMARY | 2024-11-27 20:02 | XMS_ITS | Encounter Summary ---
Author Organization [facility] Address [facility] [place] [address] Care Team Providers Care Icu Specialist Name Role Phone Valdez Acosta MD Primary Care Provider [phone] Dian Smith PA-C Unavailable + [phone] Malinda Lopez APRN.RADIOTELEGRAPHER Unavailable + [phone] Source Comments In the event this information is protected by the Federal Confidentiality of Alcohol and Drug AbusePatient Records regulations: The Federal rules restrict any use of the information to criminally investigate or prosecute any alcohol or drug abuse patient.[facility] Encounter Details Date Type Department Care Team (Late st Contact Info) Description 09/08/2021 Patient Msg Neurology [address] [place] [phone] Provider, Ccskyler For infusion approval you needed [...] How often do you attend pentecostalism or quaker serv ices? Never 08/02/2020 Do [...] Date Recorded PHQ-2 score 5 10/30/2020 [facility] - Occupational Stress Questionnaire Answer Date Recorded [...] N ot on file 04/27/2020 Data from: https://www.neighborhoodatlas.medicine.[facility].edu/. Last address used for calculation Not [...] on filedocumented in this encounter Care Teams Icu Specialist Relationship Specialty Start Date End Date Valdez Acosta MD [address] [place] [address] PCP - General Internal Medicine 11/01/20 Dian Smith PA-C [address] [place] [address] Transfer Table Operator Internal Medicine 04/26/24 05/21/24 Malinda Lopez APRN.RADIOTELEGRAPHER [address] [place] [address] Transfer Table Operator Family Medicine 04/26/24 documented as of this encounter
--- OUTSIDE RECORDS SUMMARY | 2024-11-27 20:02 | XMS_ITS | Encounter Summary ---
Author Organization [facility] Address [address] [place] [address] Care Team Providers Care Tube Knitter Name Role Phone Frances Hills (Rn) special education coordinator Provider Valdez Bhandari MD Primary Care Provider +- [phone] Dian Smith PA-C Unavailable + [phone] Malinda Lopez APRN.[facility] Unavailable + [phone] Source Comments In the event this information is protected by the Federal Confidentiality of Alcohol and Drug AbusePatient Records regulations: The Federal rules restrict any use of the information to criminally investigate or prosecute any alcohol or drug abuse patient.[facility] Encounter Details Date Type Department Care Team (Late st Contact Info) Description 09/08/2020 [facility] [address] [place] [address] Aylin Garrison PA-C [address] [place] [address] RE: Non-Urgent Medical Question Social History [...] How often do you attend samaritan or buddhist serv ices? Never 08/02/2020 Do you belong [...] Answer Date Recorded PHQ-2 score 3 08/02/2020 [facility] [place] of Occupat ional Health - Occupational Stress [...] on file 04/27/2020 Data from: https://www.neighborhoodatlas.medicine.[facility].edu/. Last address used for calculation Not [...] on filedocumented in this encounter Care Teams Tube Knitter Relationship Specialty Start Date End Date Reinier August (Rn), RN PCP - General 12/06/17 10/31/20 Valdez Acosta MD [address] [place] [address] PCP - General Internal Medicine 11/01/20 Dian Smith PA-C [facility] [place] [address] Creative Services Producer Internal Medicine 04/26/24 05/21/24 Malinda Lopez, COFFEE ROASTER HELPER.PAGEANT DIRECTOR [address] [place] [address] Creative Services Producer Family Medicine 04/26/24 documented as of this encounter
--- OUTSIDE RECORDS SUMMARY | 2024-11-27 20:02 | XMS_ITS | Encounter Summary ---
Author Organization [facility] Address [address] [place] [address] Care Team Providers Care Professional Organizer Name Role Phone Frances Hills (Rn) back seam stitcher Provider Valdez Bhandari MD Primary Care Provider +- [phone] Dian Smith PA-C Unavailable + [phone] Malinda Lopez APRN.[facility] Unavailable + [phone] Source Comments In the event this information is protected by the Federal Confidentiality of Alcohol and Drug AbusePatient Records regulations: The Federal rules restrict any use of the information to criminally investigate or prosecute any alcohol or drug abuse patient.[facility] Encounter Details Date Type Department Care Team (Late st Contact Info) Description 07/29/2020 [facility] [address] [place] [address] Aylin Garrison PA-C [address] [place] [address] RE: Upcoming Appointment Question Social History [...] How often do you attend jainism or hindu serv ices? Never 08/02/2020 Do you belong [...] Answer Date Recorded PHQ-2 score 3 08/02/2020 [facility] of Occupat ional Health - Occupational [...] on file 04/27/2020 Data from: https://www.neighborhoodatlas.medicine.[facility].edu/. Last address used for calculation Not [...] documented as of this encounter Care Teams Professional Organizer Relationship Specialty Start Date End Date August (Rn), RN PCP - General 12/06/17 10/31/20 Valdez Acosta MD [address] [place] [address] PCP - General Internal Medicine 11/01/20 Dian Smith PA-C [address] [place] [address] Solar Sales Associate Internal Medicine 04/26/24 05/21/24 Malinda Lopez APRN.AMMONIUM HYDROXIDE OPERATOR [address] [place] [address] Solar Sales Associate Family Medicine 04/26/24 documented as of this encounter
--- OUTSIDE RECORDS SUMMARY | 2024-11-27 20:02 | XMS_ITS | Encounter Summary ---
Author Organization [facility] Address [address] [place] [address] Care Team Providers Care Broadcast Systems Engineer Name Role Phone Kirk Wyatt Segundo Primary Care Provider Frances Hills (Rn) historical site guide Provider Valdez Bhandari MD Primary Care Provider [phone] Dian Smith PA-C Unavailable + [phone] Malinda Lopez APRN.TOWEL INSPECTOR Unavailable + [phone] Source Comments In the event this information is protected by the Federal Confidentiality of Alcohol and Drug AbusePatient Records regulations: The Federal rules restrict any use of the information to criminally investigate or prosecute any alcohol or drug abuse patient.[facility] Reason for Visit * Reason Comments Medication Preauthorization tecfidera Encounter Details Date Type Department Care Team (Late st Contact Info) Description 07/13/2016 [facility] [address] [address] [place] [address] [place] [address] Medication Preauthorization (tecfidera) Social History Tobacco [...] documented as of this encounter Care Teams Broadcast Systems Engineer Relationship Specialty Start Date End Date Wyatt Bradley PCP - General Internal Medicine 05/21/12 12/05/17 Frances Hills (Rn), RN PCP - General 12/06/17 10/31/20 Valdez Acosta MD [address] [place] [address] PCP - General Internal Medicine 11/01/20 Dian Smith PA-C [facility] [place] [address] Engraver Steel Plate Internal Medicine 04/26/24 05/21/24 Malinda Lopez, FIELD AGENT.[facility] [address] [place] [address] Engraver Steel Plate Family Medicine 04/26/24 documented as of this encounter
--- OUTSIDE RECORDS SUMMARY | 2024-11-27 20:02 | XMS_ITS | Encounter Summary ---
Author Organization [facility] Address [facility] [place] [address] Care Team Providers Care Assistant Coach Name Role Phone Kirk Wyatt Segundo Primary Care Provider Frances Hills (Rn) nougat cutter machine Provider Valdez Bhandari MD Primary Care Provider [phone] Dian Smith PA-C Unavailable + [phone] Malinda Lopez APRN.LIME MIXER TENDER Unavailable + [phone] Source Comments In the event this information is protected by the Federal Confidentiality of Alcohol and Drug AbusePatient Records regulations: The Federal rules restrict any use of the information to criminally investigate or prosecute any alcohol or drug abuse patient.[facility] Encounter Details Date Type Department Care Team (Late st Contact Info) Description 03/03/2014 Patient Msg Medical Records [address] [place] [address] Provider, Ccf labs and office visit Social [...] as of this encounter Care Teams Assistant Coach Relationship Specialty Start Date End Date Wyatt Bradley PCP - General Internal Medicine 05/21/12 12/05/17 Frances Hills (Rn), RN PCP - General 12/06/17 10/31/20 Valdez Acosta MD [address] [place] [address] PCP - General Internal Medicine 11/01/20 Dian Smith PA-C [address] [place] [address] Pipe Liner Internal Medicine 04/26/24 05/21/24 Malinda Lopez, PROFESSOR OF VISUAL ARTS.LIME MIXER TENDER [address] [place] [address] Pipe Liner Family Medicine 04/26/24 documented as of this encounter
--- OUTSIDE RECORDS SUMMARY | 2024-11-27 20:02 | XMS_ITS | Encounter Summary ---
Author Organization [facility] Address [address] [place] [address] Care Team Providers Care Promotor Group Ticket Sales Name Role Phone Frances Hills (Rn) golf course ranger Provider Valdez Bhandari MD Primary Care Provider +- [phone] Dian Smith PA-C Unavailable + [phone] Malinda Lopez APRN.[facility] Unavailable + [phone] Source Comments In the event this information is protected by the Federal Confidentiality of Alcohol and Drug AbusePatient Records regulations: The Federal rules restrict any use of the information to criminally investigate or prosecute any alcohol or drug abuse patient.[facility] Encounter Details Date Type Department Care Team (Late st Contact Info) Description 08/03/2020 [facility] [address] [place] [address] Aylin Garrison PA-C [address] [place] [address] RE: Non-Urgent Medical Question Social History [...] Never 08/02/2020 How often do you attend confucianist or oriental orthodox serv ices? Never 08/02/2020 Do you belong to any clubs o r organizations such as confucianist groups, unions, fraternal or athletic groups, or [...] Answer Date Recorded PHQ-2 score 3 08/02/2020 [facility] [place] of Occupat ional Health - Occupational Stress [...] place to sleep or slept in a usp (including now)? No 08/02/2020 Area Deprivation Index Answer Date Chris rded National Score (1-100), lower number is lower ri sk Not on file 04/27/2020 State Score (1-10), lower number is lower risk N ot on file 04/27/2020 Data from: https://www.neighborhoodatlas.medicine.[facility].edu/. Last address used for calculation [...] documented as of this encounter Care Teams Promotor Group Ticket Sales Relationship Specialty Start Date End Date August (Rn), RN PCP - General 12/06/17 10/31/20 Valdez Acosta MD [address] [place] [address] PCP - General Internal Medicine 11/01/20 Dian Smith PA-C [address] [place] [address] Want Ad Supervisor Internal Medicine 04/26/24 05/21/24 Malinda Lopez, WINDOW TINTER.PROGRAM ASSOCIATE [address] [place], [place] [address] [place] [address] Want Ad Supervisor Family Medicine 04/26/24 documented as of this encounter
--- OUTSIDE RECORDS SUMMARY | 2024-11-27 20:02 | XMS_ITS | Encounter Summary ---
Author Organization [facility] Address [address] [place] [address] Care Team Providers Care Transformer Repairer Name Role Phone Kirk Wyatt Segundo Primary Care Provider Frances Hills (Rn) wool batting worker Provider Valdez Bhandari MD Primary Care Provider [phone] Dian Smith PA-C Unavailable + [phone] Malinda Lopez APRN.DRYING MACHINE OPERATOR Unavailable + [phone] Source Comments In the event this information is protected by the Federal Confidentiality of Alcohol and Drug AbusePatient Records regulations: The Federal rules restrict any use of the information to criminally investigate or prosecute any alcohol or drug abuse patient.[facility] Reason for Visit * Reason Comments Medication Preauthorization Tecf[employer] Encounter Details Date Type Department Care Team (Late st Contact Info) Description 12/23/2015 [facility] [address] [address] [place] [address] [place] [address] Medication Preauthorization (Tecfidera) Social History Tobacco [...] documented as of this encounter Care Teams Transformer Repairer Relationship Specialty Start Date End Date Wyatt Bradley PCP - General Internal Medicine 05/21/12 12/05/17 Frances Hills (Rn), RN PCP - General 12/06/17 10/31/20 Valdez Acosta MD [address] [place] [address] PCP - General Internal Medicine 11/01/20 Dian Smith PA-C [facility] [place] [address] Woodwork Teacher Internal Medicine 04/26/24 05/21/24 Malinda Lopez, ENGINEERING DRAWINGS CHECKER.[facility] [address] [place] [address] Woodwork Teacher Family Medicine 04/26/24 documented as of this encounter
--- OUTSIDE RECORDS SUMMARY | 2024-11-27 20:03 | XMS_ITS | Encounter Summary ---
Author Organization [facility] Address [address] [place] [address] Care Team Providers Care Estimation Manager Name Role Phone Valdez Acosta MD Primary Care Provider [phone] Dian Smith PA-C Unavailable + [phone] Malinda Lopez APRN.[facility] Unavailable + [phone] Source Comments In the event this information is protected by the Federal Confidentiality of Alcohol and Drug AbusePatient Records regulations: The Federal rules restrict any use of the information to criminally investigate or prosecute any alcohol or drug abuse patient.[facility] Encounter Details Date Type Department Care Team (Late st Contact Info) Description 06/10/2023 [facility] [address] [place], [place] [id number] Aylin Garrison PA-C [address] [place] [address] Bulging disc Social History Tobacco Use [...] How often do you attend yazidi or catholic serv ices? Never 08/02/2020 Do you belong [...] Answer Date Recorded PHQ-2 score 1 05/01/2023 [facility] of Occupat ional Health - [...] risk 4 09/20/2022 Data from: https://www.neighborhoodatlas.medicine.[facility].edu/. Last address used for calculation [address] [...] RN - 06/10/2023 2:26 PM EST Called [facility] at [phone], spoke with outside dealer sales representative who is pushing over MRI Cervical Spine Images from 05-09-2023 to [facility] via [employer]. Routing to Aylin Garrison PA-C. Gabriel Victoria RN documented in this encounter Plan of Treatment Not on file documented as of this encounter Visit Diagnoses Not on filedocumented in this encounter Care Teams Estimation Manager Relationship Specialty Start Date End Date Valdez Acosta MD [address] [place] [address] PCP - General Internal Medicine 11/01/20 Dian Smith PA-C [address] [place] [address] [phone] Autocad Internal Medicine 04/26/24 05/21/24 Malinda Lopez, REFRACTORY SPECIALIST.MILLING MACHINE OPERATOR [address] [place] [address] [phone] Autocad Family Medicine 04/26/24 documented as of this encounter
--- OUTSIDE RECORDS SUMMARY | 2024-11-27 20:03 | XMS_ITS | Encounter Summary ---
Author Organization [facility] Address [address] [place] [address] Care Team Providers Care Compugraph Operator Name Role Phone Kristin Gracia VBA PROGRAMMER Unavailable [phone] Maxim Lanza MD Primary Care Provider Encounter Details Date Type Department Care Team (Late st Contact Info) Description 10/20/2024 Orders Only [facility] [address] [place] [address] Kristin Gracia, VBA PROGRAMMER [address] [place] [phone] Social History Tobacco Use Types Packs/Day Years [...] How often do you attend chur or cheondoism services? 1 to 4 times per year [...] Recorded Patient Health Questionnaire-2 Score 6 05/18/2024 [facility] of Occupat ional Health - [...] documented as of this encounter Care Teams Compugraph Operator Relationship Specialty Start Date End Date Maxim Lanza MD [address] [place] [address] PCP - General Family Medicine 07/15/23 Kristin Gracia NP [address] [place] [address] Primary Care Provider Family Medicine 05/20/22 documented as of this encounter
--- OUTSIDE RECORDS SUMMARY | 2024-11-27 20:03 | XMS_ITS | Encounter Summary ---
Author Organization [facility] Address [address] [place] [address] Care Team Providers Care Industrial Diamond Polisher Name Role Phone Valdez Acosta MD Primary Care Provider + [phone] Dian Smith PA-C Unavailable + [phone] Malinda Lopez APRN.WAREHOUSE FORKLIFT OPERATOR Unavailable + [phone] Source Comments In the event this information is protected by the Federal Confidentiality of Alcohol and Drug AbusePatient Records regulations: The Federal rules restrict any use of the information to criminally investigate or prosecute any alcohol or drug abuse patient.[facility] Encounter Details Date Type Department Care Team (Late st Contact Info) Description 11/26/2023 Patient Msg Radiology [address] [place] [address] Provider, Ccf MRI Questionnaire Social [...] Never 08/02/2020 How often do you attend cheondoism or sikh serv ices? Never 08/02/2020 Do you belong [...] 5 09/05/2023 [facility] Occupat ional [facility] - Occupational Stress Questionnaire Answer [...] is lower risk 4 09/20/2022 Data from: https://www.neighborhoodatlas.medicine.[facility].edu/. Last address used for calculation [...] on filedocumented in this encounter Care Teams Industrial Diamond Polisher Relationship Specialty Start Date End Date Valdez Acosta MD [address] [place] [address] PCP - General Internal Medicine 11/01/20 Dian Smith PA-C [address] [place] [address] [facility] Internal Medicine 04/26/24 05/21/24 Malinda Lopez APRN.WAREHOUSE FORKLIFT OPERATOR [address] [place] [address] Ginger Farmer Family Medicine 04/26/24 documented as of this encounter
--- OUTSIDE RECORDS SUMMARY | 2024-11-27 20:03 | XMS_ITS | Encounter Summary ---
Author Organization [facility] Address [facility] [place] [address] Care Team Providers Care Granite Chip Terrazzo Finisher Name Role Phone Valdez Acosta MD Primary Care Provider [phone] Dian Smith PA-C Unavailable [phone] Malinda Lopez APRN.KERRICK KLEANER OPERATOR Unavailable + [phone] Source Comments In the event this information is protected by the Federal Confidentiality of Alcohol and Drug AbusePatient Records regulations: The Federal rules restrict any use of the information to criminally investigate or prosecute any alcohol or drug abuse patient.[facility] Encounter Details Date Type Department Care Team (Late st Contact Info) Description 05/03/2023 Patient Msg Neurology [address] [phone] Provider, [facility] New Year Insurance Verification Social [...] Never 08/02/2020 How often do you attend anglican or episcopalian serv ices? Never 08/02/2020 Do you belong to any clubs o r organizations such as anglican groups, unions, fraternal or athletic groups, or [...] Answer Date Recorded PHQ-2 score 1 05/01/2023 [facility] - Occupational Stress Questionnaire Answer [...] is lower risk 4 09/20/2022 Data from: https://www.neighborhoodatlas.medicine.[facility].edu/. Last address used for calculation [address] [...] on filedocumented in this encounter Care Teams Granite Chip Terrazzo Finisher Relationship Specialty Start Date End Date Valdez Acosta MD [address] [place] [address] PCP - General Internal Medicine 11/01/20 Dian Smith PA-C [facility] [place] [address] Junior Systems Analyst Internal Medicine 04/26/24 05/21/24 Malinda Lopez APRN.KERRICK KLEANER OPERATOR [address] [place] [address] Junior Systems Analyst Family Medicine 04/26/24 documented as of this encounter
--- OUTSIDE RECORDS SUMMARY | 2024-11-27 20:03 | XMS_ITS | Encounter Summary ---
Author Organization [facility] Address [id number] [address] [place] [address] Care Team Providers Care Skid Road Worker Name Role Phone Kristin Gracia SPECIAL WEAPONS AND TACTICS OFFICER-TOOL PUSHER Primary Care Provider Encounter Details Date Type Department Care Team (Late st Contact Info) Description 11/27/2024 Orders Only [facility] - Radiation Oncology [address] [place] [address] Bravo Gomez Social History Tobacco Use Types Packs/Day Years Used Date Smoking Tobacco: Some Days Cigarettes Smokeless Tobacco: Never Alcohol Use Standard Drinks/Week Comments Never 0 (1 standard drink = 0.6 oz pur e alcohol) [facility] Utilities Answer Date Recorded In the [...] on filedocumented in this encounter Care Teams Skid Road Worker Relationship Specialty Start Date End Date Kristin Gracia, SPECIAL WEAPONS AND TACTICS OFFICER-TOOL PUSHER PCP - General Nurse Practitioner 08/28/24 documented as of this encounter
--- OUTSIDE RECORDS SUMMARY | 2024-11-27 20:03 | XMS_ITS | Encounter Summary ---
Author Organization [facility] Address [address] [place] [address] Care Team Providers Care Mine Expert Name Role Phone Kristin Gracia THERAPEUTIC RADIOLOGIST Unavailable [phone] Maxim Lanza MD Primary Care Provider Encounter Details Date Type Department Care Team (Late st Contact Info) Description 10/08/2024 Abstract [facility] [address] [place] [address] Maxim Lanza MD [address] [place] [address] Social History Tobacco Use Types Packs/Day Years [...] do you attend chur or zoroastrian services? 1 to 4 times per year [...] Recorded Patient Health Questionnaire-2 Score 6 05/18/2024 [facility]at ional [facility] [...] documented as of this encounter Care Teams Mine Expert Relationship Specialty Start Date End Date Maxim Lanza MD [address] [place] [address] PCP - General Family Medicine 07/15/23 Kristin Gracia NP [address] [place] [address] Primary Care Provider Family Medicine 05/20/22 documented as of this encounter
--- OUTSIDE RECORDS SUMMARY | 2024-11-27 20:03 | XMS_ITS | Clinical Summary ---
Author Organization [facility] Address [address] [place] [address] Care Team Providers Care Director Independent Name Role Phone HarveyberenicejesicaKristin beltran HAND THERMAL CUTTER Unavailable [phone] Maxim Lanza MD Primary Care Provider [phone] Allergies No known active allergies Medications ocrelizumab [...] (anxiety) 90 tablet 5 Active nystatin (Mycostatin) 501242 UNIT/GM powderIndication s:Yeast dermatitis Apply topically 2 [...] in 6 weeks Encounter for subsequent juliann [facility] visit (AWV) in Medicare patient 05/18/2024 [...] Encounters Date Type Department Care Team Description 11/25/2024 Orders Only [facility] [address] [place] [address] 11/24/2024 Telephone [facility] [address] [place] [phone] Rio Ennis MD Other (scallop shucker) 11/07/2024 Clinisync Result Encounter [facility] External Department Unsolicited Rio Ennis MD 11/05/2024 Patient Outreach [facility] [address] [place] [address] Blank Rodriguez, SHANA 10/28/2024 Patient Outreach [facility] [address] [place] [address] Dian Guerin MA 10/23/2024 Patient Outreach [facility] [address] [place] [address] Blank Rodriguez, SHANA 10/22/2024 Patient Outreach [facility] [address] [place] [address] Blank Rodriguez, COMPUTER SYSTEMS SOFTWARE ENGINEER 10/20/2024 Abstract [facility] [address] [place] [address] Kristin Gracia NP 10/20/2024 Orders Only [facility] [address] [place] [address] Kristin Gracia NP 10/17/2024 Clinisync Result Encounter [facility] External Department Unsolicited Provider, Generic External Data 10/14/2024 Patient Outreach [facility] [address] [place] [address] Blank Rodriguez, COMPUTER SYSTEMS SOFTWARE ENGINEER 10/08/2024 Abstract [facility] [address] [place] [address] Maxim Lanza MD 10/07/2024 Patient Outreach [address] [place] [address] RodriguezRemy vergaraia, COMPUTER SYSTEMS SOFTWARE ENGINEER 09/30/2024 Patient Outreach [address] [place] [address] RodriguezRemyia, COMPUTER SYSTEMS SOFTWARE ENGINEER 09/21/2024 Patient Outreach [facility] [address] [place] [address] Rodriguez, Blank, COMPUTER SYSTEMS SOFTWARE ENGINEER 09/21/2024 Patient Outreach [address] [place] [address] Remy Rodriguezia, COMPUTER SYSTEMS SOFTWARE ENGINEER 09/18/2024 Clinisync Result Encounter [facility]S External Department Unsolicited Rio Ennis MD 09/16/2024 Patient Outreach [address] [place] [address] RodriguezRemyia, COMPUTER SYSTEMS SOFTWARE ENGINEER 09/15/2024 Abstract [facility] [address] [place] [address] Unallocated, Jasmin Pollock MD 09/09/2024 Patient Outreach [address] [place] [address] Blank Rodriguez, COMPUTER SYSTEMS SOFTWARE ENGINEER 09/02/2024 Patient Outreach [address] [place] [address] Rodriguez, Blank, COMPUTER SYSTEMS SOFTWARE ENGINEER from Last 3 Months Immunizations Immunization Administration [...] often do you attend chur ch or sikh services? 1 to 4 times per year [...] Recorded Patient Health Questionnaire-2 Score 6 05/18/2024 [facility] Occupat ional [facility] [...] slept in a detention (including now)? No 06/04/2023 Comments Unknown Sex [...] Name Priority Date/Time Associated Diagnosis Comments CT ABDOMEN PELVIS WO IV CONTRAST Routine 11/25/2024 9:08 AM EDT ALL BASIC METABOLIC PANEL Routine 11/07/2024 10:09 AM EDT COMPLETE ECHOCARDIOGRAM DOBUTAMINE STRESS TEST Routine 10/20/2024 8:01 AM EDT [facility] C[facility] - [facility] Routine 10/17/2024 9:45 AM EDT BLOOD CULTURE [...] Recently Relevant to Health Maintenance Results * CT abdomen pelvis wo IV contrast (11/25/2024 9:08 AM EDT) Anatomical Region Laterality Modality Body, Pelvis, Abdomen Computed T omography [facility] CT PROCEDURES Final Result * (ABNORMAL) ALL BASIC METABOLIC PANEL (11/07/2024 [...] 0.55 - 1.02 mg/dL [facility] EGFR-AF WALLISIAN 19(L) >=60 mL/min/1.7 3m 2 TB[facility] EGFR-NON AF WALLISIAN 16(L) >=60 mL/min/1.7 3m 2 [facility] BUN CREATININE RATIO 11.8 TBH CALCIUM 8.5 8.5 - 10.1 mg/dL [facility] 11/07/2024 10:0 9 AM EDT 11/07/2024 11:05 AM EDT Narrative CLINISYNC - 11/07/2024 11:27 AM EDT us Rio Ennis MD CLINISYNC Final Result [facility] * Complete echocardiogram dobutamine stress test (10/20/2024 8:01 AM EDT) Anatomical Region Laterality Modality Ultrasound us Kristin Gracia NP CV ECHO PROCEDURES Final Result * (ABNORMAL) [facility] (10/17/2024 9:45 AM EDT) [facility] URINE CULTURE - [facility] Testing performed at [facility] URINE [facility]ULTURE - [facility] [address] [place] [address] [facility] URINE [facility]ULTURE - [facility] O:PROMIR Isolated [facility] URINE CULTURE - [facility] Urine Culture - FR Wickliffe Count [facility] URINE CULTURE - [facility] >100,000 CFU/ml [facility] URINE CULTURE - [facility] Organism: 1.1 Antibiotic Interpretation ROSE Status [facility] URINE CULTURE - FR Amikacin S F(S) [facility] URINE CULTURE - FR Amoxicillin/Clavul anate S F(S) [facility] URINE CULTURE - FR Ampicillin S F(S) [facility] URINE CULTURE - FR Aztreonam S F(S) [facility] URINE CULTURE - FR Ceftazidime S F(S) [facility] URINE CULTURE - FR Ceftazidime/Avibac egan S F(S) [facility] URINE CULTURE - FR Ceftolozane/Tazoba ctam S F(S) [facility] URINE CULTURE - [facility] Ciprofloxacin S F(S) [facility]INE CULTURE - [facility] Ertapenem S F(S) [facility]INE CULTURE - [facility] Gentamicin S F(S) [facility]INE CULT[facility] - [facility] Levofloxacin S F(S) [facility] URINE CULTURE - [facility] Meropenem S F(S) [facility] URINE CULTURE - [facility] Meropenem/Vaborbac egan S F(S) [facility] URINE CULTURE - [facility] Tobramycin S F(S) [facility] URINE CULTURE - [facility] Ampicillin/Sulbact am S F(S) [facility] URINE CULTURE - [facility] Cefazolin S F(S) [facility] URINE CULTURE - [facility] Cefepime S F(S) [facility] URINE CULT[facility] - [facility] Ceftriaxone S F(S) [facility] URINE CULTURE - [facility] Cefuroxime S F(S) [facility] URINE CULTURE - [facility] Piperacillin/Tazob actam S F(S) [facility] URINE CULTURE - [facility] Trimethoprim/Sulfa S F(S) [facility] 10/17/2024 9:45 AM EDT 10/17/2024 9:56 AM EDT Narrative CLINISYNC - 10/19/2024 10:55 AM EDT us Generic External Data Provider LAB BLOOD ORDERAB LES Final Result Performing Organization Address [facility]/ZIP Co de Phone Number [facility] * BLOOD CULTURE 2 (10/17/2024 2:55 AM EDT) Only the most recent of2 resultswithin the time period is included. [facility] BLOOD CULTURE 2 Blood Culture 2 NG5D NO GROWTH AT 5 DAYS.^NO GROWTH AT 5 DAYS. TB 10/17/2024 2:55 AM EDT 10/17/2024 3:10 AM EDT Narrative CLINISYNC - 10/22/2024 2:43 PM EDT Generic External Data Provider LAB BLOOD ORDERAB LES Final Result Performing Organization Address [facility]/ZIP Co de Phone Number [facility] * BLOOD CULTURE 1 (10/17/2024 2:47 AM EDT) Only the most recent of2 resultswithin the time period is included. BLOOD CULTURE 1 Blood Culture 1 NG5D NO GROWTH AT 5 DAYS.^NO GROWTH AT 5 DAYS. TB 10/17/2024 2:47 AM EDT 10/17/2024 3:10 AM EDT Narrative JAMI - 10/22/2024 2:43 PM EDT us Generic External Data Provider LAB BLOOD ORDERAB LES Final Result [facility] * (ABNORMAL) ALL CBC WITH AUTO DIFF (09/18/2024 2:05 PM EDT) Pathologist [facility] WBC 12.9(H) 4.0 - 11.0 10 3/uL TBH TBH RBC 4.32 4.20 - 5.40 10 6/uL TBH TBH HGB 11.7(L) 12.0 - 16.0 g/dL TB TB HCT 37.9 36.0 - 48.0 % TBH TB MCV 87.7 81.0 - 99.0 fL TBH TB MCH 27.1 26.7 - 34.0 pg TBH TB MCHC 30.9 29.9 - 35.2 g/dL TB TB RDW 14.9 11.0 - 15.0 % TBH [...] 3:22 PM EDT us Rio Ennis MD CLINISYUMAIR Final Result CLINROYALIL TB * MM TOMOSYNTHESIS SCREENING BI (06/30/2024 11:32 AM EST) Anatomical Region Laterality Modality Other 06/30/2024 11:3 2 AM EST Narrative 06/30/2024 11:33 [place] [address] Mammography Report Signed Patient: NITHYA VASQUEZ MR#: [id number] : 1970 Acct:[id number] Age/Sex: 54 / F ADM Date: 06/30/24 Loc: MAMMO Attending Dr: Kristin Gracia NP Ordering Physician: Kristin Gracia NP Results: Date of Service: 06/30/24 Follow Up: Procedure(s): MM tomosynthesis screening BI Accession Number(s): [id number] cc: Kristin Gracia NP Patient Name: NITHYA VASQUEZ MR#: [id number] : 1970 Exam Date: 06/30/2024 Ordering Doctor: [...] throat/lung cancer at age 56. LOCATION: [facility] BREAST COMPOSITION: There are scattered [...] Signed By: 06/30/24 1133 DD/ 1132 TD/TT: Lawn Care Technician: Procedure Note Radiology, Radiologist, MD - 06/30/2024 [place] [address] Mammography Report Signed Patient: NITHYA VASQUEZ FMR#: [id number] : 1970Acct:[id number] Age/Sex: 54 / FADM Date: 06/30/24 Loc: MAMMO Attending Dr: Kristin Gracia NP Ordering Physician: Kristin Gracia NPResults: Date of Service: 06/30/24Follow Up: Procedure(s): MM tomosynthesis screening BI Accession Number(s): [id number] cc: Kristin Gracia NP Patient Name: NITHYA VASQUEZ MR#: [id number] : 1970 Exam Date: 06/30/2024 Ordering Doctor: [...] throat/lung cancer at age 56. LOCATION: [facility] BREAST COMPOSITION: There are scattered [...] M.D. Signed By:06/30/24 1133 DD/ 1132 TD/TT: Lawn Care Technician: Kristin Gracia NP CLINISYNC IMAGING Final Result from Last 3 Months or Most Recently Relevant to Health Maintenance Insurance [facility] MEDICARE COMPLETE Care Teams Director Independent Relationship Specialty Start Date End Date Maxim Lanza MD [address] [place] [address] PCP - General Family Medicine 07/15/23 Kristin Gracia NP [address] [place] [address] Primary Care Provider Family Medicine 05/20/22
--- OUTSIDE RECORDS SUMMARY | 2024-11-27 20:03 | XMS_ITS | Encounter Summary ---
Author Organization [facility] Address [address] [place] [address] Care Team Providers Care Supervisor Plasma Name Role Phone Frances Hills (Rn) general warehouse worker Provider Valdez Bhandari MD Primary Care Provider [phone] Dian Smith PA-C Unavailable [phone] Malinda Lopez APRN.[facility] Unavailable + [phone] Source Comments In the event this information is protected by the Federal Confidentiality of Alcohol and Drug AbusePatient Records regulations: The Federal rules restrict any use of the information to criminally investigate or prosecute any alcohol or drug abuse patient.[facility] Encounter Details Date Type Department Care Team (Late st Contact Info) Description 03/11/2020 Patient [facility] [address] [phone] Provider, [facility] Social History Tobacco Use Types Packs/Day Years [...] documented as of this encounter Care Teams Supervisor Plasma Relationship Specialty Start Date End Date Reinier August (Rn), RN PCP - General 12/06/17 10/31/20 Valdez Acosta MD [address] [place] [address] PCP - General Internal Medicine 11/01/20 Dian Smith PA-C [address] [place] [address] [facility] Internal Medicine 04/26/24 05/21/24 Malinda Lopez, CHIEF CRNA.[facility] [address] [place] [address] [facility] Family Medicine 04/26/24 documented as of this encounter
--- OUTSIDE RECORDS SUMMARY | 2024-11-27 20:03 | XMS_ITS | Encounter Summary ---
Author Organization [facility] Address [address] [place] [address] Care Team Providers Care Head Rose Grower Name Role Phone Valdez Acosta MD Primary Care Provider [phone] Dian Smith PA-C Unavailable [phone] Malinda Lopez APRN.[facility] Unavailable + [phone] Source Comments In the event this information is protected by the Federal Confidentiality of Alcohol and Drug AbusePatient Records regulations: The Federal rules restrict any use of the information to criminally investigate or prosecute any alcohol or drug abuse patient.[facility] Encounter Details Date Type Department Care Team (Late st Contact Info) Description 10/30/2023 [facility] [address] [place], [place] [id number] Aylin Garrison PA-C [address] [place] [address] MRI @ Upcoming appt. 12/10/23 Social [...] How often do you attend druze or christian serv ices? Never 08/02/2020 Do you belong [...] Answer Date Recorded PHQ-2 score 5 09/05/2023 [facility] Occupat ional Health - [...] risk 4 09/20/2022 Data from: https://www.neighborhoodatlas.medicine.[facility].edu/. Last address used for calculation [address] [...] on filedocumented in this encounter Care Teams Head Rose Grower Relationship Specialty Start Date End Date Valdez Acosta MD [address] [place] [address] PCP - General Internal Medicine 11/01/20 Dian Smith PA-C [address] [place] [address] [facility] Internal Medicine 04/26/24 05/21/24 Malinda Lopez APRN.MILLINERY DEPARTMENT MANAGER [address] [place] [address] [facility] Family Medicine 04/26/24 documented as of this encounter
--- OUTSIDE RECORDS SUMMARY | 2024-11-27 20:03 | XMS_ITS | Encounter Summary ---
Author Organization [facility] Address [address] [place] [address] Care Team Providers Care Sack Cleaner Name Role Phone HarveyberenicejesicaKristin beltran SIDEWALK INSPECTOR Unavailable [phone] Maxim Lanza MD Primary Care Provider [phone] Encounter Details Date Type Department Care Team (Late st Contact Info) Description 11/25/2024 Orders Only [facility] [address] [place] [phone] Social History Tobacco Use Types Packs/Day Years [...] often do you attend chur ch or pentecostalism services? 1 to 4 times per year [...] Recorded Patient Health Questionnaire-2 Score 6 05/18/2024 [facility] Occupat ional [facility] - Occupational Stress Questionnaire Answer Date [...] in a senior care (including now)? No 06/04/2023 Comments Unknown Sex [...] IV CONTRAST Routine 11/25/2024 9:08 AM EDT documented in this encounter Results * CT abdomen pelvis wo IV contrast (11/25/2024 9:08 AM EDT) Anatomical Region Laterality Modality Body, Pelvis, Abdomen Computed T omography [facility] CT PROCEDURES Final Result documented in this encounter Visit Diagnoses Not on filedocumented in this encounter Additional Health Concerns Assessment Noted Time PHQ-9 Depression Total Score: 18 05/18/ 024 9:00 AM EST documented as of this encounter Care Teams Sack Cleaner Relationship Specialty Start Date End Date Maxim Lanza MD [address] [place] [address] PCP - General Family Medicine 07/15/23 Kristin Gracia NP [address] [place] [address] Primary Care Provider Family Medicine 05/20/22 documented as of this encounter
--- OUTSIDE RECORDS SUMMARY | 2024-11-27 20:03 | XMS_ITS | Encounter Summary ---
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 1 to 4 times per year [...] Recorded Patient Health Questionnaire-2 Score 6 05/18/2024 [facility] Occupat ional Health - Occupational [...] slept in a prison (including now)? No 06/04/2023 Comments Unknown Sex and Gender Information Value Date Recorded Sex Assigned at Female 04/29/2023 4:00 PM EST Legal Sex Female 7:10 PM EDT Gender Identity Female 04/29/2023 4:00 PM EST Sexual Orientation Asexual 06/04/2023 10 :08 PM EST documented as of this encounter Miscellaneous Notes * Telephone Encounter - Margot Florez - 11/24/2024 7:37 PM EDT Yamilka Yates is a 54 y.o. female. [facility] ER called requesting a call back from the b2b sales consultant provider regarding this pt. She came into the ER from [facility] per the pt request due to hematuria, pain, and issues with the alexis cath. Call back number is [phone] . documented in this encounter Plan of Treatment Not on file documented as of this encounter Visit Diagnoses Not on filedocumented in this encounter Additional Health Concerns Assessment Noted Time PHQ-9 Depression Total Score: 18 024 9:00 AM EST documented as of this encounter Care Teams Pick And Shovel Worker Relationship Specialty Start Date End Date Maxim Lanza MD [address] [place] [address] PCP - General Family Medicine 07/15/23 Kristin Gracia NP [address] [place] [address] Primary Care Provider Family Medicine 05/20/22 documented as of this encounter
--- OUTSIDE RECORDS SUMMARY | 2024-11-27 20:03 | XMS_ITS | Patient Health Record ---
Author Organization [facility] Address [address] [place] [address] [place] [address] Care Team Providers Care Youth Agent Name Role Phone Rio Ennis Primary Care Provider UnavailGlen Beatty Unavailable [phone] Reason For Referral No Information Encounters Encounter Location Date Provider Diagnosis [facility] [address] [place] [address] 10/14/2024 [place] [facility] Plan Of Treatment No Information Insurance Providers Payer Name Payer Address Payer Phone Subscriber Number Group Number Insured Name Patient Relationship to Insured Coverage Start Date Coverage End Date [facility] [address] [address] [place] [address] [id number] Yamilka Yates Self - patient is the insured
--- OUTSIDE RECORDS SUMMARY | 2024-11-27 20:03 | XMS_ITS | Encounter Summary ---
Author Organization [facility] Address [address] [place] [address] Care Team Providers Care Broadband Installer Name Role Phone Kristin Gracia TIRE MOLD ENGRAVER Unavailable [phone] Maxim Lanza MD Primary Care Provider [phone] Encounter Details Date Type Department Care Team (Late st Contact Info) Description 10/20/2024 Abstract [facility] [address] [place] [address] Kristin Gracia NP [address] [place] [id number] Social History Tobacco Use Types Packs/Day Years [...] How often do you attend chur or yarsanism services? 1 to 4 times per year 06/04/2023 Do you belong to any clubs o r organizations such as yarsani groups, unions, fraternal or athletic groups, or [...] Recorded Patient Health Questionnaire-2 Score 6 05/18/2024 [facility] - Occupational Stress [...] documented as of this encounter Care Teams Broadband Installer Relationship Specialty Start Date End Date Maxim Lanza MD [address] [place] [id number] PCP - General Family Medicine 07/15/23 Kristin Gracia NP [address] [place] [id number] Primary Care Provider Family Medicine 05/20/22 documented as of this encounter
--- OUTSIDE RECORDS SUMMARY | 2024-11-27 20:03 | XMS_ITS | Patient Health Record ---
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 Machine Name Role Phone HarveybereniceKristin perry CNP Primary Care Provider Unavail able Allergies No Known Allergies Results Component Value Reference Range Notes CBC AUTO DIFF Reviewed date:10/18/2024 04:24:42 PM Interpretation: Performing Lab: Notes/Report: [facility] , White Blood Count 6.6 4.0-11.0 10 [...] 3/uL Performing Lab: see note ML - [facility] LB INFLUENZA A AND B AG Reviewed date:10/18/2024 04:24:42 PM Interpretation: Performing Lab: Notes/Report: [facility] , Influenza Virus A Antigen Negative Negative for Flu A protein antigen. Infection due to Flu A cannot be ruled out. Flu A antigen in the sample may be below the detection limit of the test. Influenza Virus B Antigen Negative Negative for Flu B protein antigen. Infection due to Flu B cannot be ruled out. Flu B antigen in the sample may be below the detection limit of the test. Performing Lab: see note ML - [facility] LB LACTATE or LACTIC ACID Reviewed date:10/18/2024 04:24:42 PM Interpretation: Performing Lab: Notes/Report: [facility] , Lactate/Lactic Acid 3.1 0.4-2.0 mmol/L RESULT S CALLED TO ALIZA TOWNSEND RN Performing Lab: see note ML - [facility] LB MAGNESIUM Reviewed date:10/18/2024 04:24:42 PM Interpretation: Performing Lab: Notes/Report: [facility] , Magnesium 2.0 1.8-2.4 mg/dL Performing Lab: see note ML - [facility] LB RSV Reviewed date:10/18/2024 04:24:42 PM Interpretation: Performing Lab: Notes/Report: [facility] , Respiratory Syncytial Virus Not Detected NOT DETECTE Performing Lab: see note ML - [facility] LB T4 Reviewed date:10/18/2024 04:24:42 PM Interpretation: Performing Lab: Notes/Report: [facility] , T4 Thyroxine 6.60 4.80-13.90 ug/dL Performing Lab: see note ML - [facility] LB TSH Reviewed date:10/18/2024 04:24:42 PM Interpretation: Performing Lab: Notes/Report: [facility] , Thyroid Stimulating Hormone 1.513 0.358-3.740 uIU/mL Performing Lab: see note ML - [facility] LB UA RANDOM W or MICROSCOPIC Reviewed date:10/18/2024 04:24:42 PM Interpretation: Performing Lab: Notes/Report: [facility] , Color Urine LT. YELLOW YELLOW Clarity Urine SLIGHTLY CLOUDY CLEAR Specific [place] Urine <=1.005 1.005-1.025 pH Urine 7.0 5.0-9.0 [...] Performing Lab: see note ML - [facility] LB Troponin I High Sensitivity Reviewed date:10/18/2024 04:24:42 PM Interpretation: Performing Lab: Notes/Report: [facility] , Troponin I High Sensitivity 29.4 4.0-51.3 pg/mL CUT-OFF POINTS HAVE BEEN ESTABLISHED BASED ON THE FOURTH UNIVERSAL DEFINITION OF MYOCARDIAL INFARCTION. THE UPPER REFERENCE LIMIT (URL) OF TROPONIN, DEFINED THE 99TH PERCENTILE OF cTnI DISTRIBUTION IN A REFERENCE POPULATION, HAS BEEN CONFIRMED THE DECISION THRESHOLD FOR MS DIAGNOSIS. 99TH PERCENTILE = 51.4 PG/ML NOTE: HIGH-SENSITIVITY TROPONIN ASSAY IS NOT INTENDED TO BE USED IN ISOLATION BUT SHOULD BE INTERPRETED IN CONJUNCTION WITH OTHER DIAGNOSTIC AND CLINICAL INFORMATION. Performing Lab: see note ML - [facility] LB SARS-CoV-2 Ag* Reviewed date:10/18/2024 04:24:42 PM Interpretation: Performing Lab: Notes/Report: [facility] , SARS-CoV-2 Ag NEGATIVE NEGATIVE This test has not been FDA cleared or approved, but has been authorized by the FDA under an Emergency Use Authorization (EUA) for use by authorized laboratories certified under CLIA that meet the requirements to perform moderate or high complexity testing. This test has been authorized only for the detection of proteins from SARS-CoV-2, not for any other viruses or pathogens. The emergency use of this test is authorized for the duration of the declaration that circumstances exist justifying the authorization of emergency use of in vitro diagnostic tests for detection and/or diagnosis of Covid-19 under section 564(b)(1) of the Act, 21 U.S.C. 360bbb-3(b)(1), unless the declaration is terminated or authorization is revoked sooner. Performing Lab: see note ML - [facility] LB Urine Culture - [facility] Reviewed date:10/19/2024 09:03:55 PM Interpretation: Performing Lab: Notes/Report: [facility] , Urine Culture - [facility] See Below For Report Urine Culture - [facility] Testing performed at [facility] O:PROMIR Isolated Urine Culture - [facility] [place] Count Organism: 1.1 Antibiotic Interpretation ROSE Status Urine Culture - [facility] [address], [place] [address] Urine Culture - [facility] Testing performed at [facility] O:PROMIR Isolated Urine Culture - [facility] [place] Count Organism: 1.1 Antibiotic Interpretation ROSE Status Urine Culture - [facility] See Below For Report Urine Culture - [facility] Testing performed at [facility] O:PROMIR Isolated Urine Culture - [facility] [place] Count Organism: 1.1 Antibiotic Interpretation ROSE Status Urine Culture - [facility] See Below For Report Urine Culture - [facility] Testing performed at [facility] O:PROMIR Isolated Urine Culture - [facility] [place] Count Organism: 1.1 Antibiotic Interpretation ROSE Status Urine Culture - [facility] >100,000 Urine Culture - [facility] Testing performed at [facility] O:PROMIR Isolated Urine Culture - [facility] [place] Count Organism: 1.1 Antibiotic Interpretation ROSE Status Urine Culture - [facility] See Below For Report Urine Culture - [facility] Testing performed at [facility] O:PROMIR Isolated Urine Culture - [facility] [place] Count Organism: 1.1 Antibiotic Interpretation ROSE Status Urine Culture - [facility] Amikacin S F Urine Culture - [facility] Testing performed at [facility] O:PROMIR Isolated Urine Culture - [facility] [place] Count Organism: 1.1 Antibiotic Interpretation ROSE Status Urine Culture - [facility] Amoxicillin/Clavula cherri S F Urine Culture - [facility] Testing performed at [facility] O:PROMIR Isolated Urine Culture - [facility] [place] Count Organism: 1.1 Antibiotic Interpretation ROSE Status Urine Culture - [facility] Ampicillin S F Urine Culture - [facility] Testing performed at [facility] O:PROMIR Isolated Urine Culture - [facility] [place] Count Organism: 1.1 Antibiotic Interpretation ROSE Status Urine Culture - [facility] Aztreonam S F Urine Culture - [facility] Testing performed at [facility] O:PROMIR Isolated Urine Culture - [facility] [place] Count Organism: 1.1 Antibiotic Interpretation ROSE Status Urine Culture - [facility] Ceftazidime S F Urine Culture - [facility] Testing performed at [facility] O:PROMIR Isolated Urine Culture - [facility] [place] Count Organism: 1.1 Antibiotic Interpretation ROSE Status Urine Culture - [facility] Ceftazidime/Avibactam S F Urine Culture - [facility] Testing performed at [facility] O:PROMIR Isolated Urine Culture - [facility] [place] Count Organism: 1.1 Antibiotic Interpretation ROSE Status Urine Culture - [facility] Ceftolozane/Tazobac egan S F Urine Culture - [facility] Testing performed at [facility] O:PROMIR Isolated Urine Culture - [facility] [place] Count Organism: 1.1 Antibiotic Interpretation ROSE Status Urine Culture - [facility] Ciprofloxacin S F Urine Culture - [facility] Testing performed at [facility] O:PROMIR Isolated Urine Culture - [facility] [place] Count Organism: 1.1 Antibiotic Interpretation ROSE Status Urine Culture - [facility] Ertapenem S F Urine Culture - [facility] Testing performed at [facility] O:PROMIR Isolated Urine Culture - [facility] [place] Count Organism: 1.1 Antibiotic Interpretation ROSE Status Urine Culture - [facility] Gentamicin S F Urine Culture - [facility] Testing performed at [facility] O:PROMIR Isolated Urine Culture - [facility] [place] Count Organism: 1.1 Antibiotic Interpretation ROSE Status Urine Culture [facility] Levofloxacin S F Urine Culture - [facility] Testing performed at [facility] O:PROMIR Isolated Urine Culture - [facility] [place] Count Organism: 1.1 Antibiotic Interpretation ROSE Status Urine Culture [facility] Meropenem S F Urine Culture - [facility] Testing performed at [facility] O:PROMIR Isolated Urine Culture - [facility] [place] Count Organism: 1.1 Antibiotic Interpretation ROSE Status Urine Culture - [facility] Meropenem/Vaborbactam S F Urine Culture - [facility] Testing performed at [facility] O:PROMIR Isolated Urine Culture - [facility] [place] Count Organism: 1.1 Antibiotic Interpretation ROSE Status Urine Culture [facility] Tobramycin S F Urine Culture - [facility] Testing performed at [facility] O:PROMIR Isolated Urine Culture - [facility] [place] Count Organism: 1.1 Antibiotic Interpretation ROSE Status Urine Culture - [facility] Ampicillin/Sulbactam S F Urine Culture - [facility] Testing performed at [facility] O:PROMIR Isolated Urine Culture - [facility] [place] Count Organism: 1.1 Antibiotic Interpretation ROSE Status Urine Culture - [facility] Cefazolin S F Urine Culture - [facility] Testing performed at [facility] O:PROMIR Isolated Urine Culture - [facility] [place] Count Organism: 1.1 Antibiotic Interpretation ROSE Status Urine Culture - [facility] Cefepime S F Urine Culture - [facility] Testing performed at [facility] O:PROMIR Isolated Urine Culture - [facility] [place] Count Organism: 1.1 Antibiotic Interpretation ROSE Status Urine Culture - [facility] Ceftriaxone S F Urine Culture - [facility] Testing performed at [facility] O:PROMIR Isolated Urine Culture - [facility] [place] Count Organism: 1.1 Antibiotic Interpretation ROSE Status Urine Culture - [facility] Cefuroxime S F Urine Culture - [facility] Testing performed at [facility] O:PROMIR Isolated Urine Culture - [facility] [place] Count Organism: 1.1 Antibiotic Interpretation ROSE Status Urine Culture - [facility] Piperacillin/Tazoba ctam S F Urine Culture - [facility] Testing performed at [facility] O:PROMIR Isolated Urine Culture - [facility] [place] Count Organism: 1.1 Antibiotic Interpretation ROSE Status Urine Culture - [facility] Trimethoprim/Sulfa S F Urine Culture - [facility] Testing performed at [facility] O:PROMIR Isolated Urine Culture - [facility] [place] Count Organism: 1.1 Antibiotic Interpretation ROSE Status Performing Lab: see note ML - [facility] LB SEE REPORT - Celery Cutter Id information not found for OBX-specific type proof reproducer legend Troponin I High Sensitivity Reviewed date:10/18/2024 04:24:42 PM Interpretation: Performing Lab: Notes/Report: [facility] , Troponin I High Sensitivity 18.8 4.0-51.3 pg/mL CUT-OFF POINTS HAVE BEEN ESTABLISHED BASED ON THE FOURTH UNIVERSAL DEFINITION OF MYOCARDIAL INFARCTION. THE UPPER REFERENCE LIMIT (URL) OF TROPONIN, DEFINED THE 99TH PERCENTILE OF cTnI DISTRIBUTION IN A REFERENCE POPULATION, HAS BEEN CONFIRMED THE DECISION THRESHOLD FOR MS DIAGNOSIS. 99TH PERCENTILE = 51.4 PG/ML NOTE: HIGH-SENSITIVITY TROPONIN ASSAY IS NOT INTENDED TO BE USED IN ISOLATION BUT SHOULD BE INTERPRETED IN CONJUNCTION WITH OTHER DIAGNOSTIC AND CLINICAL INFORMATION. Performing Lab: see note ML - [facility] BLOOD GASES BTY Reviewed date:10/18/2024 04:24:42 PM Interpretation: Performing Lab: Notes/Report: [facility] , pH ABG 7.409 7.350-7.450 ABG PCO2 51.8 35.0-45.0 mmHg RESULTS AVALOS D TO ALIZA TOWNSEND RN PO2 ABG 67.3 80.0-100.0 mmHg HCO3 ABG 32.7 22.0-26.0 mmol/L Base Excess ABG 8.1 -2.0-2.0 mmol/L Oxygen Saturation ABG 94.5 Quinten Test POSITIVE POSITIVE O2 Mode NC Liters per Minute 2 Puncture Site LR Performing Lab: see note ML - [facility] PROF CHEM 8 (BAS METB) Reviewed date:10/18/2024 04:24:42 PM Interpretation: Performing Lab: Notes/Report: [facility] , Sodium 145 136-145 mmol/L Potassium 3.8 [...] mg/dL Performing Lab: see note ML - [facility] PTT Reviewed date:10/18/2024 04:24:42 PM Interpretation: Performing Lab: Notes/Report: [facility] , Partial Thromboplastin Time 24.8 22.3-36.2 sec Performing Lab: see note ML - [facility] Prothrombin Time INR Reviewed date:10/18/2024 04:24:42 PM Interpretation: Performing Lab: Notes/Report: [facility] , Prothrombin Time 10.7 9.0-11.6 sec INR 1.01 DESIRED INR: 2.0-3.0 CONDITIONS NOT LISTED BELOW 2.5-3.5 FOR PROSTHETIC HEART VALVE REPLACEMENT 2.5-3.5 RECURRENT THROMBOSIS Performing Lab: see note - [facility] LB Troponin I High Sensitivity Reviewed date:10/18/2024 04:24:42 PM Interpretation: Performing Lab: Notes/Report: [facility] , Troponin I High Sensitivity 1650.4 4.0-51.3 pg/mL RESULTS CALLED TO Erick Gomez RN CUT-OFF POINTS HAVE BEEN ESTABLISHED BASED ON THE FOURTH UNIVERSAL DEFINITION OF MYOCARDIAL INFARCTION. THE UPPER REFERENCE LIMIT (URL) OF TROPONIN, DEFINED THE 99TH PERCENTILE OF cTnI DISTRIBUTION IN A REFERENCE POPULATION, HAS BEEN CONFIRMED THE DECISION THRESHOLD FOR MS DIAGNOSIS. 99TH PERCENTILE = 51.4 PG/ML NOTE: HIGH-SENSITIVITY TROPONIN ASSAY IS NOT INTENDED TO BE USED IN ISOLATION BUT SHOULD BE INTERPRETED IN CONJUNCTION WITH OTHER DIAGNOSTIC AND CLINICAL INFORMATION. Performing Lab: see note ML - [facility] LB ECG 12 lead Reviewed date:10/19/2024 09:03:55 PM Interpretation: Performing Lab: Notes/Report: Source Facility: [place] [address] [place] [address] Electrocardiograph Report Signed Patient: NITHYA VASQUEZ MR#: [id number] : 1970 Acct:[id number] Age/Sex: 54 / F ADM Date: 10/17/24 Loc: [place] 223-[address]: Adrienne Holguin M.D. Ordering Physician: Adrienne Holguin M.D. Date of Service: 10/18/24 Procedure(s): ECG 12 lead Accession Number(s): [id number] cc: [facility] Test Date: 2024-10-18 Pat Name: NITHYA VASQUEZ Department: Room: 223 Gender: Female Drive In Teller: : 1970 Requested By: ADRIENNE HOLGUIN Order Number: [id number] Reading MD: ARTURO MOY M.D. Measurements Intervals [place] Rate: 92 P: 79 ND: 180 QRS: 62 QRSD: 78 T: 36 QT: 352 QTc: 402 Interpretive Statements 1100 Sinus rhythm 9110 normal ECG Compared to ECG 10/17/2024 19:42:58 Sinus tachycardia no longer present ST (T wave) deviation no longer present Electronically Signed On 10-18-2024 23:54:38 EDT by ARTURO MOY M.D. Dictated By: ARTURO MOY Signed By: 10/18/242354 DD/ TD/TT: Food And Nutrition Teacher: [place] [address] Electrocardiograph Report Signed Patient: SHEYLA VASQUEZ MR#: [id number] : 1970 Acct:[id number] Age/Sex: 54 / F ADM Date: 10/17/24 Loc: MS 223- Attending Dr: Angely Holguin M.D. Ordering Physician: Adrienne Holguin M.D. Date of Service: 10/18/24 Procedure(s): ECG 12 lead Accession Number(s): [id number] cc: [facility] Test Date: 2024-10-18 Pat Name: NITHYA FUNEZ Department: 61 Room: [facility] Gender: Female Drive In Teller: : 1970 Requ ested By: ADRIENNE HOLGUIN Order Number: [id number] Reading MD: ARTURO MOY M.D. Measurements Intervals [place] Rate: 92 P: 79 ND: 180 QRS: 62 QRSD: 78 T: 36 QT: 352 QTc: 402 Interpretive Statements 1100 Sinus rhythm 9110 normal ECG Compared to ECG 10/17/2024 19:42:58 Sinus tachycardia no longer present ST (T wave) deviatio n no longer present Electronically Nona d On 10-18-2024 23:54:38 EDT by ARTURO MOY M.D. Dictated By: ARTURO MOY Signed By: 10/18/242354 DD/ TD/TT: Food And Nutrition Teacher: Troponin I High Sensitivity Reviewed date:10/18/2024 04:24:42 PM Interpretation: Performing Lab: Notes/Report: [facility] , Troponin I High Sensitivity 1412.6 4.0-51.3 pg/mL RESULTS CALLED TO Aliza Townsend RN CUT-OFF POINTS HAVE BEEN ESTABLISHED BASED ON THE FOURTH UNIVERSAL DEFINITION OF MYOCARDIAL INFARCTION. THE UPPER REFERENCE LIMIT (URL) OF TROPONIN, DEFINED THE 99TH PERCENTILE OF cTnI DISTRIBUTION IN A REFERENCE POPULATION, HAS BEEN CONFIRMED THE DECISION THRESHOLD FOR MS DIAGNOSIS. 99TH PERCENTILE = 51.4 PG/ML NOTE: HIGH-SENSITIVITY TROPONIN ASSAY IS NOT INTENDED TO BE USED IN ISOLATION BUT SHOULD BE INTERPRETED IN CONJUNCTION WITH OTHER DIAGNOSTIC AND CLINICAL INFORMATION. Performing Lab: see note ML - [facility] LB Troponin I High Sensitivity Reviewed date:10/18/2024 04:24:42 PM Interpretation: Performing Lab: Notes/Report: [facility] , Troponin I High Sensitivity 1275.6 4.0-51.3 pg/mL RESULTS CALLED TO Aliza Townsend RN CUT-OFF POINTS HAVE BEEN ESTABLISHED BASED ON THE FOURTH UNIVERSAL DEFINITION OF MYOCARDIAL INFARCTION. THE UPPER REFERENCE LIMIT (URL) OF TROPONIN, DEFINED THE 99TH PERCENTILE OF cTnI DISTRIBUTION IN A REFERENCE POPULATION, HAS BEEN CONFIRMED THE DECISION THRESHOLD FOR MS DIAGNOSIS. 99TH PERCENTILE = 51.4 PG/ML NOTE: HIGH-SENSITIVITY TROPONIN ASSAY IS NOT INTENDED TO BE USED IN ISOLATION BUT SHOULD BE INTERPRETED IN CONJUNCTION WITH OTHER DIAGNOSTIC AND CLINICAL INFORMATION. Performing Lab: see note ML - [facility] LB BNP Reviewed date:10/19/2024 09:03:55 PM Interpretation: Performing Lab: Notes/Report: [facility] , NT Pro B Type Natriuretic Pept 4775.0 <=900.0 pg/mL RESULTS CALLED TO GILL BRANHAM RN @BY Leslie Urbina at 0615 Performing Lab: see note ML - [facility] LB CBC AUTO DIFF Reviewed date:10/19/2024 09:03:55 PM Interpretation: Performing Lab: Notes/Report: [facility] , White Blood Count 10.5 4.0-11.0 10 [...] Performing Lab: see note ML - [facility] LB DIGOXIN Reviewed date:10/19/2024 09:03:55 PM Interpretation: Performing Lab: Notes/Report: [facility] , Digoxin 1.1 0.9-2.0 ng/mL Performing Lab: see note ML - [facility] LB PROF CHEM 8 (BAS METB) Reviewed date:10/19/2024 09:03:55 PM Interpretation: Performing Lab: Notes/Report: [facility] , Sodium 148 136-145 mmol/L Potassium 4.1 [...] Performing Lab: see note ML - [facility] Troponin I High Sensitivity Reviewed date:10/19/2024 09:03:55 PM Interpretation: Performing Lab: Notes/Report: [facility] , Troponin I High Sensitivity 1054.0 4.0-51.3 pg/mL RESULTS CALLED TO GILL BRANHAM RN @BY Leslie Urbina at 0615 CUT-OFF POINTS HAVE BEEN ESTABLISHED BASED ON THE FOURTH UNIVERSAL DEFINITION OF MYOCARDIAL INFARCTION. THE UPPER REFERENCE LIMIT (URL) OF TROPONIN, DEFINED THE 99TH PERCENTILE OF cTnI DISTRIBUTION IN A REFERENCE POPULATION, HAS BEEN CONFIRMED THE DECISION THRESHOLD FOR MS DIAGNOSIS. 99TH PERCENTILE = 51.4 PG/ML NOTE: HIGH-SENSITIVITY TROPONIN ASSAY IS NOT INTENDED TO BE USED IN ISOLATION BUT SHOULD BE INTERPRETED IN CONJUNCTION WITH OTHER DIAGNOSTIC AND CLINICAL INFORMATION. Performing Lab: see note ML - [facility] BNP Reviewed date:10/20/2024 04:20:37 PM Interpretation: Performing Lab: Notes/Report: [facility] , NT Pro B Type Natriuretic Pept 4134.0 <=900.0 pg/mL RESULTS CALLED TO GILBERTO SEGOVIA RN @BY Leslie Urbina at 0620 Performing Lab: see note ML - [facility] DIGOXIN Reviewed date:10/20/2024 04:20:37 PM Interpretation: Performing Lab: Notes/Report: [facility] , Digoxin 0.8 0.9-2.0 ng/mL Performing Lab: see note ML - [facility] PROF CHEM 8 (BAS METB) Reviewed date:10/20/2024 04:20:37 PM Interpretation: Performing Lab: Notes/Report: [facility] , Sodium 149 136-145 mmol/L Potassium 3.6 [...] Performing Lab: see note ML - [facility] LB Troponin I High Sensitivity Reviewed date:10/20/2024 04:20:37 PM Interpretation: Performing Lab: Notes/Report: [facility] , Troponin I High Sensitivity 833.8 4.0-51.3 pg/mL RESULTS CALLED TO GILBERTO SEGOVIA RN @BY Leslie Urbina at 0620 CUT-OFF POINTS HAVE BEEN ESTABLISHED BASED ON THE FOURTH UNIVERSAL DEFINITION OF MYOCARDIAL INFARCTION. THE UPPER REFERENCE LIMIT (URL) OF TROPONIN, DEFINED THE 99TH PERCENTILE OF cTnI DISTRIBUTION IN A REFERENCE POPULATION, HAS BEEN CONFIRMED THE DECISION THRESHOLD FOR MS DIAGNOSIS. 99TH PERCENTILE = 51.4 PG/ML NOTE: HIGH-SENSITIVITY TROPONIN ASSAY IS NOT INTENDED TO BE USED IN ISOLATION BUT SHOULD BE INTERPRETED IN CONJUNCTION WITH OTHER DIAGNOSTIC AND CLINICAL INFORMATION. Performing Lab: see note ML - [facility] LB CBC AUTO DIFF Reviewed date:10/21/2024 09:27:44 PM Interpretation: Performing Lab: Notes/Report: [facility] , White Blood Count 9.6 4.0-11.0 10 [...] Performing Lab: see note ML - [facility] LB Occult Blood* Reviewed date:10/21/2024 09:27:44 PM Interpretation: Performing Lab: Notes/Report: [facility] , Occult Blood Positive Performing Lab: see note - [facility] LB CBC AUTO DIFF Reviewed date:10/20/2024 04:20:37 PM Interpretation: Performing Lab: Notes/Report: [facility] , White Blood Count 8.6 4.0-11.0 10 [...] 3/uL Performing Lab: see note ML - [facility] LB LIVER PROFILE Reviewed date:10/19/2024 09:03:55 PM Interpretation: Performing Lab: Notes/Report: [facility] , Bilirubin Total 0.3 0.2-1.0 mg/dL Bilirubin Direct 0.1 0.0-0.2 mg/dL Aspartate Amino Transferase 35 15-37 U/L Alanine Aminotransferase 47 14-59 U/L Alkaline Phosphatase 93 46-116 U/L Total Protein 5.7 6.4-8.2 g/dL Albumin Level 1.9 3.4-5.0 g/dL Globulin 3.8 Albumin Globulin Ratio 0.5 Performing Lab: see note ML - [facility] LB Troponin I High Sensitivity Reviewed date:10/18/2024 04:24:42 PM Interpretation: Performing Lab: Notes/Report: [facility] , Troponin I High Sensitivity 1354.8 4.0-51.3 pg/mL RESULTS CALLED TO Aliza Townsend RN CUT-OFF POINTS HAVE BEEN ESTABLISHED BASED ON THE FOURTH UNIVERSAL DEFINITION OF MYOCARDIAL INFARCTION. THE UPPER REFERENCE LIMIT (URL) OF TROPONIN, DEFINED THE 99TH PERCENTILE OF cTnI DISTRIBUTION IN A REFERENCE POPULATION, HAS BEEN CONFIRMED THE DECISION THRESHOLD FOR MS DIAGNOSIS. 99TH PERCENTILE = 51.4 PG/ML NOTE: HIGH-SENSITIVITY TROPONIN ASSAY IS NOT INTENDED TO BE USED IN ISOLATION BUT SHOULD BE INTERPRETED IN CONJUNCTION WITH OTHER DIAGNOSTIC AND CLINICAL INFORMATION. Performing Lab: see note ML - [facility] LB BNP Reviewed date:10/18/2024 04:24:42 PM Interpretation: Performing Lab: Notes/Report: [facility] , NT Pro B Type Natriuretic Pept 5191.0 <=900.0 pg/mL RESULTS CALLED TO Erick Gomez RN Performing Lab: see note ML - [facility] LB LACTATE or LACTIC ACID Reviewed date:10/18/2024 04:24:42 PM Interpretation: Performing Lab: Notes/Report: [facility] , Lactate/Lactic Acid 1.7 0.4-2.0 mmol/L Performing Lab: see note ML - [facility] LB Troponin I High Sensitivity Reviewed date:10/22/2024 08:13:21 PM Interpretation: Performing Lab: Notes/Report: [facility] , Troponin I High Sensitivity 451.2 4.0-51.3 pg/mL RESULTS CALLED TO ERICK GOMEZ RN @BY Leslie Urbina at 0611 CUT-OFF POINTS HAVE BEEN ESTABLISHED BASED ON THE FOURTH UNIVERSAL DEFINITION OF MYOCARDIAL INFARCTION. THE UPPER REFERENCE LIMIT (URL) OF TROPONIN, DEFINED THE 99TH PERCENTILE OF cTnI DISTRIBUTION IN A REFERENCE POPULATION, HAS BEEN CONFIRMED THE DECISION THRESHOLD FOR MS DIAGNOSIS. 99TH PERCENTILE = 51.4 PG/ML NOTE: HIGH-SENSITIVITY TROPONIN ASSAY IS NOT INTENDED TO BE USED IN ISOLATION BUT SHOULD BE INTERPRETED IN CONJUNCTION WITH OTHER DIAGNOSTIC AND CLINICAL INFORMATION. Performing Lab: see note ML - [facility] BNP Reviewed date:10/22/2024 08:13:21 PM Interpretation: Performing Lab: Notes/Report: [facility] , NT Pro B Type Natriuretic Pept 1268.0 <=900.0 pg/mL RESULTS CALLED TO ERICK GOMEZ RN @BY Leslie Urbina at 0611 Performing Lab: see note ML - [facility] Troponin I High Sensitivity Reviewed date:10/21/2024 09:27:44 PM Interpretation: Performing Lab: Notes/Report: [facility] , Troponin I High Sensitivity 643.9 4.0-51.3 pg/mL RESULTS CALLED TO ERICK GOMEZ RN @BY Leslie Urbina at 0623 CUT-OFF POINTS HAVE BEEN ESTABLISHED BASED ON THE FOURTH UNIVERSAL DEFINITION OF MYOCARDIAL INFARCTION. THE UPPER REFERENCE LIMIT (URL) OF TROPONIN, DEFINED THE 99TH PERCENTILE OF cTnI DISTRIBUTION IN A REFERENCE POPULATION, HAS BEEN CONFIRMED THE DECISION THRESHOLD FOR MS DIAGNOSIS. 99TH PERCENTILE = 51.4 PG/ML NOTE: HIGH-SENSITIVITY TROPONIN ASSAY IS NOT INTENDED TO BE USED IN ISOLATION BUT SHOULD BE INTERPRETED IN CONJUNCTION WITH OTHER DIAGNOSTIC AND CLINICAL INFORMATION. Performing Lab: see note ML - [facility] PROF CHEM 8 (BAS METB) Reviewed date:10/21/2024 09:27:44 PM Interpretation: Performing Lab: Notes/Report: [facility] , Sodium 150 136-145 mmol/L Potassium 3.0 3.5-5.1 mmol/L Chloride 106 98-107 mmol/L Carbon Dioxide 38.1 21.0-32.0 mmol/L Anion Gap 8.9 Glucose 95 74-106 mg/dL Blood Urea Nitrogen 34.0 7.0-18.0 mg/dL Creatinine 0.85 0.55-1.02 mg/dL Estimated GFR ( Maricel >60 >=60 mL/min/1.73m 2 Estimated GFR (Non- Lindsay >60 >=60 mL/min/1.73m 2 BUN Creatinine Ratio 40.0 Calcium 8.7 8.5-10.1 mg/dL Performing Lab: see note - [facility] BNP Reviewed date:10/21/2024 09:27:44 PM Interpretation: Performing Lab: Notes/Report: [facility] , NT Pro B Type Natriuretic Pept 2996.0 <=900.0 pg/mL RESULTS CALLED TO ERICK GOMEZ RN @BY Leslie Urbina at 0623 Performing Lab: see note - [facility] LB PROF CHEM 8 (BAS METB) Reviewed date:10/22/2024 08:13:21 PM Interpretation: Performing Lab: Notes/Report: [facility] , Sodium 148 136-145 mmol/L Potassium 3.2 3.5-5.1 mmol/L Chloride 104 98-107 mmol/L Carbon Dioxide 40.8 21.0-32.0 mmol/L Anion Gap 6.4 Glucose 85 74-106 mg/dL Blood Urea Nitrogen 39.0 7.0-18.0 mg/dL Creatinine 1.02 0.55-1.02 mg/dL Estimated GFR ( Maricel >60 >=60 mL/min/1.73m 2 Estimated GFR (Non- Lindsay 56 >=60 mL/min/1.73m 2 BUN Creatinine Ratio 38.2 Calcium 9.0 8.5-10.1 mg/dL Performing Lab: see note - [facility] LB CBC AUTO DIFF Reviewed date:10/22/2024 08:13:21 PM Interpretation: Performing Lab: Notes/Report: [facility] , White Blood Count 8.3 4.0-11.0 10 [...] Performing Lab: see note ML - [facility] Reason For Referral No Information Medications [...] W/U Status Risk Notes Problem Multiple sclerosis (46080651) Multiple sclerosis (G35) Active confirmed Problem Obesity (090051666) Obesity (E66.9) Active confirmed Problem Bipolar 1 disorder (533414079) Bipolar 1 disorder (F31.9) Active confirmed Problem Acute exacerbation of chronic obstructive airways disease (134225708) COPD exacerbation (J44.1) Active confirmed Problem 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) (886466664656023 ) Systolic and diastolic CHF, acute on chronic (I50.43) Active confirmed Problem Brain mass (495835204) Brain mass (G93.89) Active confirmed Plan Of Treatment No Information Insurance Providers Payer Name Payer Address Payer Phone Subscriber Number Group Number Insured Name Patient Relationship to Insured Coverage Start Date Coverage End Date [facility] [employer] [address] [address] [place] [phone] [id number] Nithya Vasquez Self - patient is the insured Medical (General) History Medical History History ICD Code stroke Chronic diarrhea K52.9 Hyperlipidemia E78.5 Hypertension 401.9 Anxiety and depression F41.9 Constipation K59.00 Burning sensation of rectum R20.8 Surgical History Surgery Date(Month/Year) tubal 1991 carpal tunnel
--- OUTSIDE RECORDS SUMMARY | 2024-11-27 20:03 | XMS_ITS | Encounter Summary ---
Author Organization [facility] Address [address] [place], [place] [id number] Care Team Providers Care Data Assistant Name Role Phone Frances [place] (Rn) water resource engineer Provider Valdez Bhandari MD Primary Care Provider [phone] Dian Smith PA-C Unavailable [phone] Malinda Lopez APRN.[facility] Unavailable + [phone] Source Comments In the event this information is protected by the Federal Confidentiality of Alcohol and Drug AbusePatient Records regulations: The Federal rules restrict any use of the information to criminally investigate or prosecute any alcohol or drug abuse patient.[facility] Encounter Details Date Type Department Care Team (Late st Contact Info) Description 07/15/2020 [facility] [address] [place], [place] [phone] Provider, Ccf Referral Social History Tobacco Use [...] N ot on file 04/27/2020 Data from: https://www.neighborhoodatlas.medicine.[facility]/. Last address used for calculation Not on [...] documented as of this encounter Care Teams Data Assistant Relationship Specialty Start Date End Date ReinierAugust (Rn), RN PCP - General 12/06/17 10/31/20 Valdez Acosta MD [address] [place] [address] PCP - General Internal Medicine 11/01/20 Dian Smith PA-C [address] [place] [address] Component Lab Tech Internal Medicine 04/26/24 05/21/24 Malinda Lopez, SPECIALTY SALES REPRESENTATIVE.[employer] [address] [place] [address] Component Lab Tech Family Medicine 04/26/24 documented as of this encounter
--- OUTSIDE RECORDS SUMMARY | 2024-11-27 20:03 | XMS_ITS | Encounter Summary ---
Author Organization [facility] Address [facility] [place] [address] Care Team Providers Care General Engineering Teacher Name Role Phone Valdez Acosta MD Primary Care Provider [phone]- [phone] Dian Smith PA-C Unavailable [phone] Malinda Lopez APRN.IN CLASSROOM TUTOR Unavailable + [phone] Source Comments In the event this information is protected by the Federal Confidentiality of Alcohol and Drug AbusePatient Records regulations: The Federal rules restrict any use of the information to criminally investigate or prosecute any alcohol or drug abuse patient.[facility] Encounter Details Date Type Department Care Team (Late st Contact Info) Description 09/09/2023 Patient Msg Neurology [address] [phone] Provider, Ccf Requested EMG Appointment Social History [...] How often do you attend uatsdin or buddhism serv ices? Never 08/02/2020 Do you belong [...] Answer Date Recorded PHQ-2 score 5 09/05/2023 [facility] - Occupational Stress [...] place to sleep or slept in a long-term (including now)? No 08/02/2020 Area Deprivation Index Answer Date Chris rded National Score (1-100), lower number is lower ri sk 63 09/20/2022 State Score (1-10), lower number is lower risk 4 09/20/2022 Data from: https://www.neighborhoodatlas.medicine.[facility].edu/. Last address used for calculation [address] [...] on filedocumented in this encounter Care Teams General Engineering Teacher Relationship Specialty Start Date End Date Valdez Acosta MD [address] [place] [address] PCP - General Internal Medicine 11/01/20 Dian Smith PA-C [address] [place] [address] Director Of Home Economics Internal Medicine 04/26/24 05/21/24 Malinda Lopez APRN.IN CLASSROOM TUTOR [address] [place] [address] Director Of Home Economics Family Medicine 04/26/24 documented as of this encounter
--- OUTSIDE RECORDS SUMMARY | 2024-11-27 20:03 | XMS_ITS | Encounter Summary ---
Author Organization [facility] Address [facility] [place] [address] Care Team Providers Care Gaming Associate Name Role Phone Valdez Acosta MD Primary Care Provider [phone] Dian Smith PA-C Unavailable [phone] Malinda Lopez APRN.[employer] TRANSFER OPERATOR Unavailable + [phone] Source Comments In the event this information is protected by the Federal Confidentiality of Alcohol and Drug AbusePatient Records regulations: The Federal rules restrict any use of the information to criminally investigate or prosecute any alcohol or drug abuse patient.[facility] Encounter Details Date Type Department Care Team (Late st Contact Info) Description 07/05/2023 Patient Msg Neurology [address] [phone] Provider, Ccf Please Call Social Tools Social History Tobacco Use Types Packs/Day Years [...] Never 08/02/2020 How often do you attend christianity or latter day serv ices? Never 08/02/2020 Do you belong to any clubs o r organizations such as christianity groups, unions, fraternal or athletic groups, or [...] Answer Date Recorded PHQ-2 score 1 05/01/2023 [facility] - Occupational Stress Questionnaire Answer [...] is lower risk 4 09/20/2022 Data from: https://www.neighborhoodatlas.medicine.[facility].edu/. Last address used for calculation [address] [...] on filedocumented in this encounter Care Teams Gaming Associate Relationship Specialty Start Date End Date Valdez Acosta MD [address] [place] [address] PCP - General Internal Medicine 11/01/20 Dian Smith PA-C [facility] [place] [address] [employer] Internal Medicine 04/26/24 05/21/24 Malinda Lopez APRN.KILN TRANSFER OPERATOR [address] [place] [id number] [employer] [facility] 04/26/24 documented as of this encounter
--- OUTSIDE RECORDS SUMMARY | 2024-11-27 20:04 | XMS_ITS | Encounter Summary ---
Author Organization [employer] Address [id number] [address] [place] [address] Care Team Providers Care Nuclear Plant Instrument Technician Name Role Phone Harveyberenicevicky Kristin Tevin ANSARI-SHEET METAL APPRENTICE Primary Care Provider Encounter Details Date Type Department Care Team (Late st Contact Info) Description 11/19/2024 Orders Only Meera Albarado [facility] - Medical Oncology [address] [place] [address] She Drew, RN Social History Tobacco Use Types Packs/Day Years Used Date Smoking Tobacco: Some Days Cigarettes Smokeless Tobacco: Never Alcohol Use Standard Drinks/Week Comments Never 0 (1 standard drink = 0.6 oz pur e alcohol) [facility] Utilities Answer Date [...] on filedocumented in this encounter Care Teams Nuclear Plant Instrument Technician Relationship Specialty Start Date End Date Kristin Gracia, PRACTICAL NURSE-SHEET METAL APPRENTICE PCP - General Nurse Practitioner 08/28/24 documented as of this encounter
--- OUTSIDE RECORDS SUMMARY | 2024-11-27 20:04 | XMS_ITS | Encounter Summary ---
Author Organization [employer] [facility] Address [id number] [address] [place] [address] Care Team Providers Care Scarifier Operator Name Role Phone HarveycaitierubyKristin Tevin ANSARI-UNION CONTRACT REPRESENTATIVE Primary Care Provider Encounter Details Date Type Department Care Team (Late st Contact Info) Description 11/13/2024 Orders Only Meera Albarado [facility] - Medical Oncology [address] [place] [address] Guillermo Lundberg MD [address] [facility] [address] [address] [place], [place] [id number] GBM (glioblastoma multiforme) ([facility]) (Primary Dx) Social History Tobacco Use Types Packs/Day Years Used Date Smoking Tobacco: Some Days Cigarettes Smokeless Tobacco: Never Alcohol Use Standard Drinks/Week Comments Never 0 (1 standard drink = 0.6 oz pur e alcohol) [facility] Utilities Answer Date Recorded In the past 12 months has [place], gas, oil, or water [employer] threatened to shut off services in your [...] encounter Visit Diagnoses Diagnosis GBM (glioblastoma multiforme) ([facility])- Primary Malignant neoplasm of brain, unspecified site documented in this encounter Care Teams Scarifier Operator Relationship Specialty Start Date End Date Kristin Gracia APRN-UNION CONTRACT REPRESENTATIVE PCP - General Nurse Practitioner 08/28/24 documented as of this encounter
--- OUTSIDE RECORDS SUMMARY | 2024-11-27 20:04 | XMS_ITS | Clinical Summary ---
Author Organization [employer] tem Address [id number] [address] [place] [address] Care Team Providers Care Fire Protection Engineering Technician Name Role Phone HarveyberenicevickyKristin Tevin RELIGIOUS LEADER-SLINGER SEQUINS Primary Care Provider Allergies No known active [...] 180 MG chemo capsuleIndication s:GBM (glioblastoma multiforme) ([facility]) Take 1 capsule by mouth daily 42 capsule 11/14/19 25 Active ondansetron (ZOFRAN) 8 mg tablet Take 1 tablet (8 mg total) by mouth every 8 (eight) hours as needed for nausea or vomiting. 30 tablet 2 11/20/19 25 Active sulfamethoxazole- trimethoprim (BACTRIM DS) 800-160 mg per tabletIndications :GBM (glioblastoma multiforme) ([facility]) Take 1 tab daily, on Saturday and [...] Encounters Date Type Department Care Team Description 11/27/2024 Orders Only [facility] - Radiation Oncology [address] [place] [address] Bravo Gomez 11/24/2024 Documentation Meera Alves [facility] - Medical Oncology [address] [place] [phone] Priyanka Velez RN 11/19/2024 Orders Only Meera Loza [facility] Medical Oncology [address] [place] [phone] Guillermo Lundberg MD GBM (glioblastoma multiforme) ([facility]) (Primary Dx) 11/19/2024 Orders Only Meera Loza [facility] Medical Oncology [address] [place] [phone] Guillermo Lundberg MD 11/19/2024 Orders Only Meera Alves [facility] - Medical Oncology [address] [place] [phone] She Drew, MOE 11/19/2024 Orders Only Meera Loza [facility] Medical Oncology [address] [place] [phone] She Drew, MOE GBM (glioblastoma multiforme) ([facility]) (Primary Dx) 11/13/2024 12:08 PM EDT - 11/13/2024 11:59 PM EDT Hospital Encounter [facility] Oncology - Radiation Oncology [address] [place] [phone] Discharge Disposition: Still a Patient 11/13/2024 11:03 AM EDT - 11/13/2024 12:07 PM EDT Hospital Encounter [facility] Oncology - Radiation Oncology [address] [place] [phone] Glioblastoma (CMS-HCC) (Primary Dx); GBM (glioblastoma multiforme) (CMS-HCC) Discharge Disposition: Still a Patient 11/13/2024 11:03 AM EDT - 11/13/2024 12:07 PM EDT Hospital Encounter [facility] Oncology - Radiation Oncology [address] [place] [phone] GBM (glioblastoma multiforme) ([facility]) Discharge Disposition: Home 11/13/2024 9:48 AM EDT - 11/13/2024 11:02 AM EDT Hospital Encounter [facility] - MRI Imaging [address] [place] [address] Grey Yo MD Glioblastoma ([facility]) Discharge Disposition: Home 11/13/2024 Orders Only Meera Alves [facility] - Medical Oncology [address] [place] [phone] Guillermo Lundberg MD GBM (glioblastoma multiforme) ([facility]) (Primary Dx) 11/13/2024 Documentation Meera Alves [facility] - Medical Oncology [address] [place] [phone] Nancy Hernandez RN 11/13/2024 Telephone [facility] Oncology - Radiation Oncology [address] [place] [phone] Guillermo Lundberg MD 11/12/2024 11:00 AM EDT Office Visit Meera Alves [facility] - Medical Oncology [address] [place] [phone] Guillermo Lundberg MD GBM (glioblastoma multiforme) ([facility]) (Primary Dx) 11/12/2024 10:41 AM EDT - 11/12/2024 11:59 PM EDT Hospital Encounter [facility] Oncology - Radiation Oncology [address] [place] [phone] GBM (glioblastoma multiforme) ([facility]) (Primary Dx); Brain tumor (CMS-HCC); Double vision Discharge Disposition: Still a Patient 11/12/2024 Documentation [facility] Oncology - Radiation Oncology [address] [place] [phone] Nancy Hernandez, MOE 11/12/2024 Documentation Merea Loza [facility] - Medical Oncology [address] [place] [phone] She Drew, MOE 11/12/2024 Documentation [facility] Oncology - Radiation Oncology [address] [place] [phone] Nancy Hernandez, MOE 11/12/2024 Orders Only [facility] Oncology - Radiation Oncology [address] [place] [phone] Nancy Hernandez, MOE Glioblastoma ([facility]) (Primary Dx) 11/11/2024 Telephone [facility] - Radiation Oncology [address] [place] [address] Leyla Gusman Received referral Radiation consult lv 11/11/2024 Telephone [facility] [address] [place] [phone] Anya Soni, community cultural development officer note 11/11/2024 Telephone [facility] Hematology Oncology, A Department of [facility] [address] [facility] [place] [address] Ellie Coleman CMA 11/11/2024 Telephone [facility] Hematology Oncology, A Department of [facility] [address] [facility] [place] [address] Ellie Coleman CMA 11/10/2024 1:10 PM EDT Office Visit [facility] [address] [place] [phone] Andressa Garcia APRN-SLINGER SEQUINS Brain tumor ([facility]) (Primary Dx); Double vision 11/10/2024 Travel 09/29/2024 Telephone [facility] [address] [place] [phone] Anya Soni, RN incision 09/26/2024 Travel 09/23/2024 2:05 PM EDT - 09/23/2024 5:50 PM EDT Surgery [facility] - Surgery [address] [place] [phone] Juni Espinal MD SYNAPTIVE CRANIOTOMY EXCISION TUMOR 09/23/2024 1:17 PM EDT Anesthesia Event [facility] - Surgery [address] [place] [phone] Stan Hedrick MD Leopardi, Isabella, [facility] 09/19/2024 Orders Only [facility] [address] [place] [phone] Transcribe, Orders Support User Pain (Primary Dx) 09/19/2024 Travel 09/18/2024 11:59 PM EDT - 09/29/2024 12:15 AM EDT Hospital Encounter [facility] - GEN [address] [place] [phone] Lewis Botello DO Saleh, Murad H, MD Darr, Mahmood R, MD Bommana, Venu Gopala R, MD Pillai, Kanchan M, MD Reinard, Kevin A, MD Pothireddy, Ravi P, MD Altered mental status, unspecified altered mental status type (Primary Dx); BRANDON (acute kidney injury); Brain mass; S/P craniotomy Discharge Disposition: Fdc Facility-Medicare Cert 09/18/2024 8:00 PM EDT Ancillary Procedure [facility] [place] [address] Pain 09/18/2024 6:35 PM EDT Ancillary Procedure [facility] [address] [place] [address] Pain 09/16/2024 1:20 PM EDT Office Visit [facility] [address] [place] [address] Margot Barnes, RELIGIOUS LEADER-SLINGER SEQUINS Dermatitis associated with moisture (Primary Dx); Pressure injury of left buttock, stage 2 ([facility]) 09/16/2024 Travel 09/01/2024 Travel 08/28/2024 10:22 AM EDT - 09/01/2024 4:45 PM EDT Hospital Encounter [facility] - Acute Care [address] [place] [phone] Marielle Alexandra MD Asif, MD Elissa Power, Giselle Johnson MD Non-traumatic rhabdomyolysis (Primary Dx); Weakness Discharge Disposition: Fdc Facility-Medicare Cert 08/28/2024 Travel from Last 3 [...] drink = 0.6 oz pur e alcohol) [facility] Utilities Answer Date Recorded In [...] this time Medical Devices Implanted Type Area Glaze Supervisor Device Identifier Shelf Expiration Date Model / Serial / Lot Patch Dura 3x3in Thk3.5mm Crnmxf Drmtrx-Onlay + Npor Rgnrt Rpl [id number] - [id number] Implanted:Qty : 1 on 09/23/2024 by Juni Espinal MD at [facility] Graft Right: Brain JIM CRANIOMAXILLOFACIAL 06/19/2027 [id number] / / [id number] Plate Bn 12mm 2 Hl Lp Bar Tab Unv Neuro Ii Crnmxf Ti Ns 1.5 - [id number] Implanted:Qty : 2 on 09/23/2024 by Juni Espinal MD at [facility] Plate Right: Brain [employer]IM CRANIOMAXILLOFACIAL [id number] / / Cover Bur Hl Crnfcl 10mmx.5mm Lp Tab Strl Lf Disp - [id number] Implanted:Qty : 1 on 09/23/2024 by Juni Espinal MD at [facility] Plate Right: Brain JIM [employer]OM[employer]ILL[employer] [id number] / / Screw Bn 4mm 1.5mm Slf Drl Xpn Crnmxf Strl Must Order In Multiples Of 5ea - [id number] Implanted:Qty : 7 on 09/23/2024 by Juni Espinal MD at [facility] Screw Right: Brain JIM [employer]ANIOM[employer]ILLOFACIAL [id number] / / Procedures Procedure Name Priority Date/Time Associated Diagnosis Comments CT ONCOLOGY Routine 11/13/2024 1:13 PM EDT GBM (glioblastoma multiforme) ([facility]) MR BRAIN W WO CONT STAT 11/13/2024 10 :41 AM EDT Glioblastoma ([facility]) FL SWALLOW MOTILITY FUNCTION Routine 09/28/2024 2:41 [...] PATHOLOGY Routine 09/23/2024 3: 06 PM EDT IN ANES ART LINE Routine 09/23/2024 2:06 PM EDT IN AN ELECTIVE ENDOTRACHEAL AIRWAY Routine 09/23/2024 1:28 [...] image will be visible to you in [employer]. Grey Yo MD IMG CT ORDERABLES Final [...] right temporal lobe mass, compatible with high-grade PAINTER DECORATOR glioma. There is expected post surgical distortion [...] right temporal lobe mass, compatible with high-grade PAINTER DECORATOR glioma. Expected postsurgical distortion is noted, as [...] complex right temporal lobemass, compatible with high-grade PAINTER DECORATOR glioma. There is expected postsurgical distortion of [...] complex righttemporal lobe mass, compatible with high-grade PAINTER DECORATOR glioma. Expectedpostsurgical distortion is noted, as above. [...] Troy Shannon MD on 09/28/2024 3:00 PM IJayla [...] report for additionaldetails and recommendations. Approved by Res Troy Shannon MD on 09/28/2024 3:00 PM I, Jayla Arroyo MD have personally reviewed the image(s) and agree withand/or edited the report Finalized by Jayla Arroyo MD on 09/28/2024 3:08 PM us Jesi E Phlipot RELIGIOUS LEADER-SLINGER SEQUINS IMG FLUOROSCOPY ORDERAB LES Final Result * (ABNORMAL) CBC auto differential (09/28/2024 6:43 AM EDT) Only the most recent of15 resultswithin the time period is included. WBC 15.5(H) 4 - 11 x10E9/L 09/28/2024 8:17 AM EDT [facility] RBC Count 4.27 3.8 - 5.2 X10E12/L 09/28/2024 8:17 AM EDT [facility] Hemoglobin 11.5(L) 11.7 - 15.5 g/dL 09/28/2024 8:17 AM EDT [facility] Hematocrit 35.5 35 - 47 % 09/28/2024 8:17 AM EDT [facility] MCV 83 80 - 100 fL 09/28/2024 8:17 AM EDT [facility] MCH 27.0 27 - 34 pg 09/28/2024 8:17 AM EDT [facility] MCHC 32.5 32 - 36 g/dL 09/28/2024 8:17 AM EDT [facility] RDW 16.4(H) 11.5 - 15 % 09/28/2024 8:17 AM EDT [facility] Platelet Count 115(L) 150 - 450 X10E9/L 09/28/2024 8:17 AM EDT [facility] MPV 10.7 7 - 12 fL 09/28/2024 8:17 AM EDT [facility] Neutrophils % 80.2 % 09/28/2024 8:17 AM EDT [facility] Comment:This is an appended report. These results have been appended to a previously preliminary verified report. Lymphocytes % 8.3 % 09/28/2024 8:17 AM [facility] Comment:This is an appended report. These results have been appended to a previously preliminary verified report. Monocytes % 11.3 % 09/28/2024 8:17 AM [facility] Comment:This is an appended report. These results have been appended to a previously preliminary verified report. Eosinophils % 0.1 % 09/28/2024 8:17 AM [facility] Comment:This is an appended report. These results have been appended to a previously preliminary verified report. Basophils % 0.1 % 09/28/2024 8:17 AM [facility] Comment:This is an appended report. These results have been appended to a previously preliminary verified report. Neutrophils Absolute (A) 12.4(H) 1.5 - 6.6 10*3/uL 09/28/2024 8:17 AM [facility] Comment:This is an appended report. These results have been appended to a previously preliminary verified report. Lymphocytes Absolute 1.3 1.0 - 3.5 10*3/uL 09/28/2024 8:17 AM [facility] Comment:This is an appended report. These results have been appended to a previously preliminary verified report. Monocytes Absolute 1.8(H) 0.0 - 0.9 10*3/uL 09/28/2024 8:17 AM [facility] Comment:This is an appended report. These results have been appended to a previously preliminary verified report. Eosinophils Absolute 0.0 0.0 - 0.4 10*3/uL 09/28/2024 8:17 AM [facility] Comment:This is an appended report. These results have been appended to a previously preliminary verified report. Basophils Absolute 0.0 0.0 - 0.2 10*3/uL 09/28/2024 8:17 AM [facility] Comment:This is an appended report. These results have been appended to a previously preliminary verified report. Differential Type AUTOMATED DIFFERENTIAL 09/28/2024 8:17 AM EDT [facility] Comment:This is an appended report. These results have been appended to a previously preliminary verified report. Blood 09/28/2024 6:43 AM EDT 09/28/2024 6:57 AM EDT us Sandie IBANEZ LAB BLOOD ORDERABLES Final Re sult Performing Organization Address City/[facility]/ZIP Co de Phone Number [facility] [address] [place] [address], [place] [phone] * Phosphorus (09/28/2024 6:43 AM EDT) Only the most recent of9 resultswithin the time period is included. PHOSPHORUS 2.6 2.4 - 4.9 mg/dL 09/28/2024 7:30 AM EDT [facility] Blood 09/28/2024 6:43 AM EDT 09/28/2024 6:57 AM EDT us Sandie IBANEZ LAB BLOOD ORDERABLES Final Re sult Performing Organization Address [facility] Co de Phone Number [facility] [address] [place] [address], [place] [phone] * Magnesium (09/28/2024 6:43 AM EDT) Only the most recent of16 resultswithin the time period is included. MAGNESIUM 1.8 1.8 - 2.6 mg/dL 09/28/2024 7:30 AM EDT [facility] Blood 09/28/2024 6:43 AM EDT 09/28/2024 6:57 AM EDT us Sandie IBANEZ LAB BLOOD ORDERABLES Final Re sult [facility] [address] [place] [address], * (ABNORMAL) Ionized calcium (09/28/2024 6:43 AM EDT) Only the most recent of8 resultswithin the time period is included. IONIZED CALCIUM - ICAN 4.3(L) 4.5 - 5.3 mg/dL 09/28/2024 8:13 AM EDT [facility] Blood 09/28/2024 6:43 AM EDT 09/28/2024 7:00 AM EDT us Steffanie Lozano RELIGIOUS LEADER-SLINGER SEQUINS LAB BLOOD ORDERABLES Fin al Result [facility] [address] [place] [address], * (ABNORMAL) Basic Metabolic Panel (09/28/2024 6:43 AM EDT) Only the most recent of8 resultswithin the time period is included. SODIUM 140 134 - 146 mmol/L 09/28/2024 7:30 AM EDT [facility] POTASSIUM 4.4 3.5 - 5.0 mmol/L 09/28/2024 7:30 AM EDT [facility] CHLORIDE 106 98 - 109 mmol/L 09/28/2024 7:30 AM EDT [facility] CARBON DIOXIDE 23 22 - 32 mmol/L 09/28/2024 7:30 AM EDT [facility] ANION GAP 11 5 - 15 mmol/L 09/28/2024 7:30 AM EDT [facility] BLOOD UREA NITROGEN 26(H) 5 - 23 mg/dL 09/28/2024 7:30 AM EDT [facility] CREATININE 0.74 0.40 - 1.00 mg/dL 09/28/2024 7:30 AM EDT [facility] Comment:METHOD TRACEABLE TO IDMS STANDARD GLUCOSE 94 65 - 99 mg/dL 09/28/2024 7:30 AM EDT [facility] CALCIUM 8.8 8.5 - 10.5 mg/dL 09/28/2024 7:30 AM EDT [facility] EGFR Non-Race Dependent >90 >=60 ml/min/1.7 3sq.m 09/28/2024 7:30 AM EDT [facility] Comment: Reported eGFR is based on the CKD-EPI 2020 equation that does not use a race coefficient. Blood 09/28/2024 6:43 AM EDT 09/28/2024 6:57 AM EDT us Sandie IBANEZ LAB BLOOD ORDERABLES Final Re sult [facility] [address] [place] [address], [place] [phone] * X-ray chest 1 view (09/27/2024 6:11 [...] Sterling MD on 09/27/2024 6:34 AM Anjelica Loza Rubi RELIGIOUS LEADER-SLINGER SEQUINS IMG DIAGNOSTIC IMAG ING ORDERABLES Final Result * Ionized magnesium (09/25/2024 12:23 PM EDT) Only the most recent of3 resultswithin the time period is included. IONIZED MAGNESIUM 0.56 0.45 - 0.74 mmol/L 09/25/2024 12:56 PM EDT [facility] Blood Venous blood / Unknown 09/25/2024 12:23 PM EDT 09/25/2024 12:38 PM EDT Juni sEpinal MD LAB BLOOD ORDERABLES Final Re sult [facility] [address] [place] [address], [place] [phone] * (ABNORMAL) Comprehensive metabolic panel (09/24/2024 3:31 AM EDT) Only the most recent of7 resultswithin the time period is included. SODIUM 141 134 - 146 mmol/L 09/24/2024 4:24 AM EDT [facility] POTASSIUM 4.3 3.5 - 5.0 mmol/L 09/24/2024 4:24 AM EDT [facility] CHLORIDE 108 98 - 109 mmol/L 09/24/2024 4:24 AM EDT [facility] CARBON DIOXIDE 23 22 - 32 mmol/L 09/24/2024 4:24 AM EDT [facility] ANION GAP 10 5 - 15 mmol/L 09/24/2024 4:24 AM EDT [facility] BLOOD UREA NITROGEN 27(H) 5 - 23 mg/dL 09/24/2024 4:24 AM EDT [facility] CREATININE 1.06(H) 0.40 - 1.00 mg/dL 09/24/2024 4:24 AM EDT [facility] Comment:METHOD TRACEABLE TO IDMS STANDARD GLUCOSE 120(H) 65 - 99 mg/dL 09/24/2024 4:24 AM EDT [facility] CALCIUM 8.7 8.5 - 10.5 mg/dL 09/24/2024 4:24 AM EDT [facility] TOTAL PROTEIN 6.3 6.0 - 8.0 g/dL 09/24/2024 4:24 AM EDT [facility] ALBUMIN 3.3 3.2 - 5.3 g/dL 09/24/2024 4:24 AM EDT [facility] ALKALINE PHOSPHATASE 61 39 - 130 U/L 09/24/2024 4:24 AM EDT [facility] AST 19 <=41 U/L 09/24/2024 4:24 AM EDT [facility] ALT 33(H) <=31 U/L 09/24/2024 4:24 AM EDT [facility] BILIRUBIN,TOTAL 0.4 0.3 - 1.2 mg/dL 09/24/2024 4:24 AM EDT [facility] EGFR Non-Race Dependent 62 >=60 ml/min/1.7 3sq.m 09/24/2024 4:24 AM EDT [facility] Comment: Reported eGFR is based on the CKD-EPI 2020 equation that does not use a race coefficient. Blood Venous blood / Unknown Central Line / Unknown 09/24/2024 3:31 AM EDT 09/24/2024 3:47 AM EDT Juni Espinal MD LAB BLOOD ORDERABLES Final Re sult [facility] [address] [place] [address], * CT brain without contrast (09/23/2024 7:19 [...] - 99 mg/dL 09/23/2024 4:51 PM EDT [facility] Blood specimen (specimen) 09/23/2024 4:49 PM EDT 09/23/2024 4:51 PM EDT us Xena Larios MD POINT OF CARE TEST ORDERABLE S Final Result [facility] [address] [place] [address], * Surgical Pathology (09/23/2024 3:06 PM EDT) Case Report Surgical Pathology Report Case: [id number] Authorizing Provider: Juni Espinal MD Collected: 09/23/2024 1506 Ordering Location: [facility] Received: 09/23/2024 1629 - Surgery Pathologist: Alyssa Renteria MD Specimen: Brain, BRAIN TUMOR 10/15/2024 10:59 AM EDT [facility] Final Diagnosis Brain, tumor, resection ([id number]; 09/23/2024): Glioblastoma, 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 See comment. COMMENT: Histologic sections demonstrate a highly cellular infiltrating astrocytoma. A majority of the tumor shows fibrillary morphology, with a minor component showing giant cell morphology. The tumor harbors brisk mitotic activity, microvascular proliferation, and necrosis, supporting a histologic diagnosis of glioblastoma. By immunohistochemistry, the tumor is IDH-wildtype. ANCILLARY STUDIES: Immunohistochemical stains were performed at [facility] on block E[address] (IDH1-R132H, ATRX, p53, [...] to be less than 1% (Neuro-Oncology. 2014 Mar;16(11):6088?83). Therefore, tissue is not being submitted for [...] is that of Anahi Franklin M.D., Ph.D., [facility], [place], [place]. Please see the complete pathology consult (scanned on 10/09/2024). 10/15/2024 10:59 AM EDT [facility] at 0851 EDT Addendum Results of MGMT Promoter Methylation, Tumor dated 10/14/2024 are received from [facility], [address] [place] [address] and are as follows: Result Summary: MGMT PROMOTER METHYLATION ABSENT Result: Provided diagnosis: brain glioblastoma, IDH-wildtype (PAINTER DECORATOR WHO grade 4) Tumor tissue: Negative for [...] report (scanned on 10/15/2024). 10/15/2024 10:59 AM EDT [facility] Addendum electronically signed by ALYSSA RENTERIA MD on 10/15/2024 at 1059 EDT Gross Description Received in formalin labeled LONZ, brain tumor is a 8.5 x 4.5 x 1.6 cm aggregate of pink-pinedo, rubbery and friable soft tissue fragments. The specimen is filtered and entirely submitted in cassettes A-L. (12, ns, [id number], m8.1) MW 10/15/2024 10:59 AM [facility] Preliminary Diagnosis Brain tumor, resection: High grade [...] molecular studies, is to be performed at [facility] for a final integrated diagnosis to follow. 10/15/2024 10:59 AM [facility] Preliminary result electronically signed by ALYSSA [...] D): WHO Grade IV 10/15/2024 10:59 AM [facility] Embedded Images 10/15/2024 10:59 AM [facility] Tissue Brain structure / Unknown 09/23/2024 3:06 PM EDT 09/23/2024 4:29 PM EDT Comment:Pre-op diagnosis: brain tumor us Juni Espinal MD PATHOLOGY/CYTOLOGY ORDERABLES Edited Result - Final [facility] [address] [place] [address], [place] [phone] [facility] [address] [place] [address], [place] * IN ANES ART LINE (09/23/2024 2:06 PM EDT) Samia Britt SRNA - 09/23/2024 2:06 PM EDT ALFREDO Carr 09/23/2024 2:07 PM Art Line Performed by: ALFREDO Carr Authorized by: Stan Hedrick MD Patient Location: [place] Start Time: 09/23/2024 1:29 PM End Time: 09/23/2024 1:31 PM Service Provider: Stan Hedrick MD MACHINE PRINTER ( if not the service provider): Santos Kumari APRN-MACHINE PRINTER Student (if Applicable): ALFREDO Carr Placed By: [...] Patient Tolerance: Tolerated Well no arterial injury us Stan Hedrick MD IN ANESTHESIA Final Result * IN AN ELECTIVE ENDOTRACHEAL AIRWAY (09/23/2024 1:28 PM EDT) Samia Britt SRNA - 09/23/2024 1:28 PM EDT ALFREDO Carr 09/23/2024 2:06 PM Airway Patient location during procedure: OR Urgency: Elective Date/Time: 09/23/2024 1:28 PM Airway not difficult IV In Situ: Peripheral General Information and Staff Service Provider: Stan Hedrick MD MACHINE PRINTER: Santos Kumari, RELIGIOUS LEADER-MACHINE PRINTER Student: ALFREDO Carr Placed by: ALFREDO Carr [...] included. ABO O 09/23/2024 8:17 AM EDT [facility] RH Positive 09/23/2024 8:17 AM EDT [facility] Blood Venous blood / Unknown 09/23/2024 7:00 AM EDT 09/23/2024 7:01 AM EDT Xena Larios MD BLOOD BANK TEST ORDERABLES F inal Result [facility] BB - [facility] [address] [facility] [place] [address], [facility] [address] [place] [address], * Type and screen(includes indirect sinan) (09/22/2024 9:27 PM EDT) ABO O 09/22/2024 11:08 PM EDT [facility] RH Positive 09/22/2024 11:08 PM EDT [facility] Antibody Screen Negative 09/22/2024 11:08 PM EDT [facility] Blood Venous blood / Unknown Venipuncture / Unknown 09/22/2024 9:27 PM EDT 09/22/2024 9:27 PM EDT us Laura Gore RELIGIOUS LEADER-SLINGER SEQUINS BLOOD BANK TEST ORDERAB LES Edited Result - Final [facility] BB - [facility] [address] [place] [address], [facility] [address] [place] [address], * Electrolyte panel (09/22/2024 9:27 PM EDT) Only the most recent of9 resultswithin the time period is included. SODIUM 142 134 - 146 mmol/L 09/22/2024 11:03 PM EDT [facility] POTASSIUM 4.5 3.5 - 5.0 mmol/L 09/22/2024 11:03 PM EDT [facility] CHLORIDE 109 98 - 109 mmol/L 09/22/2024 11:03 PM EDT [facility] CARBON DIOXIDE 22 22 - 32 mmol/L 09/22/2024 11:03 PM EDT [facility] ANION GAP 11 5 - 15 mmol/L 09/22/2024 11:03 PM EDT [facility] Blood Venous blood / Unknown Venipuncture / Unknown 09/22/2024 9:27 PM EDT 09/22/2024 9:27 PM EDT us Ta Everett MD LAB BLOOD ORDERABLES Final Resul t [facility] [address] [place] [address], [place] [phone] * Echo complete W/ contrast (09/22/2024 4:34 [...] Velocity Ratio 0.98 XCELERA Left Ventricle Mass 130.49243 [id number] g XCELERA Interventricular Septum Diastolic Thickness by [...] is included. 09/22/2024 10:4 9 AM EDT [facility] - 09/23/2024 4:18 PM EDT Anjelica Venegas APRN-SLINGER SEQUINS ECG ORDERABLES Fin al Result Performing Organization Address City/[facility]/ZIP Co de Phone Number [facility] * Vancomycin, random (09/22/2024 6:14 AM EDT) Only the most recent of3 resultswithin the time period is included. VANCOMYCIN 16.5 5.0 - 40.0 ug/mL 09/22/2024 7:16 AM EDT [facility] Blood Venous blood / Unknown 09/22/2024 6:14 AM EDT 09/22/2024 6:14 AM EDT [facility] - 09/22/2024 7:16 AM EDT Peak 30-40 ug/mL Trough 5-20 ug/ml Anjelica Venegas APRN-SLINGER SEQUINS LAB BLOOD ORDERABLE S Final Result [facility] [address] [place] [address], [place] [phone] * Clinical Pathology Review (09/21/2024 3:31 PM EDT) Case Report Clinical Pathology Report Case: [id number] Authorizing Provider: Ta Everett MD Collected: 09/21/2024 1531 Ordering Location: [facility] Received: 09/21/2024 1531 - GEN 9 ICU Pathologist: Cecy Altman MD Specimen: Blood, Venous 09/23/2024 11:59 AM EDT [facility] Final Diagnosis Prominent band in beta region, recommend immunofixation for further evaluation. Hypoalbuminemia with increase in acute phase reactants. 09/23/2024 11:59 AM EDT [facility] at 1159 EDT Venous blood / Unknown 09/21/2024 3:31 PM EDT 09/21/2024 3:31 PM EDT us Ta Everett MD PATHOLOGY/CYTOLOGY ORDERABLES Fi nal Result [facility] [address] [place] [address], [place] [phone] * CT abdomen and pelvis without contrast [...] GROWTH 5 DAYS 09/26/2024 3:12 PM EDT [facility] Blood Venous blood / Unknown 09/20/2024 7:33 AM EDT 09/20/2024 7:33 AM EDT Narrative [facility] - 09/26/2024 3:12 PM EDT Suboptimal volume of blood collected, Results may be affected. Steffanie Lozano RELIGIOUS LEADER-SLINGER SEQUINS MICROBIOLOGY - GENERAL O RDERABLES Final Result [facility] [address] [place] [address], * MR brain synaptive protocol (09/20/2024 1:06 AM EDT) Anatomical Region Laterality Modality Neuro, Head, Head and Neck, Neuro Covera N/A Magnetic Resonance 09/20/2024 7:10 AM EDT Narrative 09/20/2024 7:17 AM EDT History: Right temporal lobe mass shown on brain CT COMPARISON: Brain CT from September 18 outside facility Post PROCEDURE: Multiplanar multisequence images performed through the [...] for surgical planning. I favor a primary PAINTER DECORATOR neoplasm such as a glioblastoma or astrocytoma. Metastasis can also present in this fashion. 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 I favor aprimary PAINTER DECORATOR neoplasm such as a glioblastoma or astrocytoma. Metastasis canalso present in this fashion. Finalized by Juan Antonio Lindquist MD on 09/20/2024 7:17 AM Chip Zarate RELIGIOUS LEADER-SLINGER SEQUINS IMG MRI ORDERABLES Fin al Result * [...] 09/19/2024 6:46 AM us Ta Everett MD [facility] US ORDERABLES Final Result * (ABNORMAL) Procalcitonin (09/19/2024 4:12 AM EDT) PROCALCITONIN 0.12(H) <0.05 ng/mL 09/19/2024 6:16 AM EDT [facility] Blood 09/19/2024 4:12 AM EDT 09/19/2024 5:15 AM EDT [facility] - 09/19/2024 6:16 AM EDT <0.50 ng/mL - Low risk of severe sepsis and/or septic shock. <2.00 ng/mL - Recommend retesting within 6-24 hours. >2.00 ng/mL - High risk of sepsis and/or septic shock. us Sandie IBANEZ LAB BLOOD ORDERABLES Final Re sult [facility] [address] [place] [address], [place] [phone] * Glomerular basement membrane IgG AB (09/19/2024 4:12 AM EDT) GBM IGG AB <0.2 <1.0 AI 09/21/2024 9:03 AM EDT [facility] Blood 09/19/2024 4:12 AM EDT 09/19/2024 5:15 AM EDT Ta Everett MD LAB BLOOD ORDERABLES Final Resul t [facility] [address] [place] [address], * Thyroid profile includes TSH FT4 (09/19/2024 4:12 AM EDT) FREE T4 0.86 0.61 - 1.60 ng/dL 09/19/2024 6:16 AM EDT [facility] TSH 2.80 0.49 - 4.67 uIU/mL 09/19/2024 6:16 AM EDT [facility] Blood 09/19/2024 4:12 AM EDT 09/19/2024 5:15 AM EDT Sandie IBANEZ LAB BLOOD ORDERABLES Final Re sult [facility] [address] [place] [address], * Proteinase 3 AB PR3 (09/19/2024 4:12 AM EDT) PROTEINASE 3 IGG AB <0.2 <1.0 AI 09/21/2024 9:03 AM EDT [facility] Blood 09/19/2024 4:12 AM EDT 09/19/2024 5:15 AM EDT Ta Everett MD LAB BLOOD ORDERABLES Final Resul t [facility] [address] [place] [address], [place] [phone] * Myeloperoxidase AB (09/19/2024 4:12 AM EDT) MYELOPEROXIDASE AB <0.2 <1.0 AI 2024 9:03 AM EDT [facility] Blood 09/19/2024 4:12 AM EDT 09/19/2024 5:15 AM EDT us Ta Everett MD LAB BLOOD ORDERABLES Final Resul t [facility] [address] [place] [address], [place] [phone] * (ABNORMAL) Complement profile (C3 AND C4) (09/19/2024 4:12 AM EDT) [facility] COMPLEMENT C3 196(H) 86 - 184 mg/dL 09/19/2024 6:16 AM EDT [facility] COMPLEMENT C4 42 16 - 47 mg/dL 09/19/2024 6:16 AM EDT [facility] Blood 09/19/2024 4:12 AM EDT 09/19/2024 5:15 AM EDT us Ta Everett MD LAB BLOOD ORDERABLES Final Resul t Performing Organization Address City/[facility]/ZIP Co de Phone Number [facility] [address] [place] [address], [place] [phone] * Iron and TIBC (09/19/2024 4:12 AM EDT) Pathologist [facility] IRON 56 50 - 170 ug/dL 09/19/2024 9:58 AM EDT [facility] TRANSFERRIN 221 168 - 336 mg/dL 09/19/2024 9:58 AM EDT [facility] IRON BINDING 309 250 - 425 ug/dL 09/19/2024 9:58 AM EDT [facility] IRON SATURATION 18 15 - 50 % SATURATION 09/19/2024 9:58 AM EDT [facility] Blood 09/19/2024 4:12 AM EDT 09/19/2024 5:15 AM EDT us Ta Everett MD LAB BLOOD ORDERABLES Final Resul t Performing Organization Address [facility] Co de Phone Number [facility] [address] [place] [address], [place] [phone] * COLE Screen w/ Reflex (09/19/2024 4:12 AM EDT) COLE SCREEN W/REFLEX Negative Negative 09/21/2024 9:03 AM EDT [facility] Blood 09/19/2024 4:12 AM EDT 09/19/2024 5:15 AM EDT Narrative [facility] - 09/21/2024 9:03 AM EDT Testing performed using multiplex flow immunoassay. Eleven difference antigens associated with systemic autoimmunie diseases (dsDNA, Sm, Sm/LIFE SCIENCE TAXONOMIST, LIFE SCIENCE TAXONOMIST, Chromatin, SSA, SSB, Lilian-1, Sc170, Ribo P, Centromere B) are included in this sreening tests. us Ta Everett MD LAB BLOOD ORDERABLES Final Resul t Performing Organization Address [facility] Co de Phone Number [facility] [address] [place] [address], [place] [phone] * (ABNORMAL) Protein electrophoresis, serum (09/19/2024 4:12 AM EDT) TOTAL PROTEIN 6.4 6.0 - 8.0 g/dL 09/23/2024 5:05 PM EDT [facility] ALPHA 1 GLOBULIN 0.6(H) 0.1 - 0.4 g/dL 09/23/2024 5:05 PM EDT [facility] ALPHA 2 GLOBULIN 1.2(H) 0.4 - 1.1 g/dL 09/23/2024 5:05 PM EDT [facility] BETA GLOBULIN 1.0 0.5 - 1.2 g/dL 09/23/2024 5:05 PM EDT [facility] GAMMA GLOBULIN 0.9 0.5 - 1.6 g/dL 09/23/2024 5:05 PM EDT [facility] Protein Electrophoresis Interp See Pathology Report 09/23/2024 5:05 PM EDT [facility] Albumin 2.8(L) 3.4 - 5.3 g/dL 09/23/2024 5:05 PM EDT [facility] Blood 09/19/2024 4:12 AM EDT 09/19/2024 5:15 AM EDT us Ta Everett MD LAB BLOOD ORDERABLES Final Resul t [facility] [address] [place] [address], [place] [phone] * Myoglobin, serum (09/19/2024 4:12 AM EDT) Only the most recent of12 resultswithin the time period is included. SERUM MYOGLOBIN 33.4 14.3 - 65.8 ng/mL 09/19/2024 5:56 AM EDT [facility] Blood 09/19/2024 4:12 AM EDT 09/19/2024 5:15 AM EDT us Sandie IBANEZ LAB BLOOD ORDERABLES Final Re sult [facility] [address] [place] [address], [place] [phone] * Folate (09/19/2024 4:12 AM EDT) FOLIC ACID 13.1 >5.8 ng/mL 09/19/2024 10:37 AM EDT [facility] Blood 09/19/2024 4:12 AM EDT 09/19/2024 5:15 AM EDT us Ta Everett MD LAB BLOOD ORDERABLES Final Resul t Performing Organization Address City/[facility]/ZIP Co de Phone Number [facility] [address] [place] [address], [place] [phone] * Ferritin (09/19/2024 4:12 AM EDT) FERRITIN 130 11 - 307 ng/mL 09/19/2024 10:34 AM EDT [facility] Blood 09/19/2024 4:12 AM EDT 09/19/2024 5:15 AM EDT us Ta Everett MD LAB BLOOD ORDERABLES Final Resul t Performing Organization Address City/[facility] Co de Phone Number [facility] [address] [place] [address], [place] [phone] * Vitamin B12 (09/19/2024 4:12 AM EDT) VITAMIN B12 517 180 - 914 pg/mL 09/19/2024 10:38 AM EDT [facility] Blood 09/19/2024 4:12 AM EDT 09/19/2024 5:15 AM EDT us Ta Everett MD LAB BLOOD ORDERABLES Final Resul t Performing Organization Address City/[facility]/ZIP Co de Phone Number [facility] [address] [place] [address], [place] [phone] * (ABNORMAL) CK Total (09/19/2024 4:12 AM EDT) Only the most recent of13 resultswithin the time period is included. CPK 18(L) 24 - 170 U/L 09/19/2024 6:16 AM EDT [facility] Blood 09/19/2024 4:12 AM EDT 09/19/2024 5:15 AM EDT us Sandie IBANEZ LAB BLOOD ORDERABLES Final Re sult [facility] [address] [place] [address], [place] [phone] * (ABNORMAL) Blood Gas, Arterial (09/19/2024 3:47 AM EDT) Sample type ARTERIAL 09/19/2024 3:52 AM EDT [facility] pH, Arterial 7.364 7.350 - 7.450 09/19/2024 3:52 AM EDT [facility] pCO2, Arterial 29.4(L) 35.0 - 45.0 mmHg 09/19/2024 3:52 AM EDT [facility] PO2, Arterial 78(L) 80 - 100 mmHg 09/19/2024 3:52 AM EDT [facility] Base, Deficit -8.0(L) 0.0 - 2.0 mmol/L 09/19/2024 3:52 AM EDT [facility] HCO3, Arterial 16.8(L) 22.0 - 26.0 mmol/L 09/19/2024 3:52 AM EDT [facility] %O2 Saturation, Arterial 95.0 >90.0 % 09/19/2024 3:52 AM EDT [facility] Quinten's test Pass 09/19/2024 3:52 AM EDT [facility] SPO2 78 % 09/19/2024 3:52 AM EDT [facility] Sample site L Rad 09/19/2024 3:52 AM EDT [facility] Source Of Oxygen Room Air 09/19/2024 3:52 AM EDT [facility] Arterial site (attribute) (Blood, Arterial) 09/19/2024 3:47 AM EDT 09/19/2024 3:52 AM EDT us Lewis Botello DO LAB BLOOD ORDERABLES Final Resul t [facility] [address] [place] [address], [place] * (ABNORMAL) POCT Nursing Urine Macroscopic UA (09/19/2024 1:37 AM EDT) Pathologist [facility] POC Urine Specific [place] 1.020 1.010, 1.015, 1.020, 1.025 09/19/2024 1:39 AM EDT [facility] POC Urine Leukocyte Esterase Negative Negative 09/19/2024 1:39 AM EDT [facility] POC Urine Nitrite Negative Negative 09/19/2024 1:39 AM EDT [facility] POC Urine pH 5.5 5.0, 6.0, 6.5, 7.0, 7.5, 8.0, 8.5, 5.5 09/19/2024 1:39 AM EDT [facility] POC Urine Protein 100 mg/dL(A) Negative 09/19/2024 1:39 AM EDT [facility] POC Urine Glucose Negative Negative 09/19/2024 1:39 AM EDT [facility] POC Urine Ketones Negative Negative 09/19/2024 1:39 AM EDT [facility] POC Urine Urobilinogen 0.2 E.U./dL 0.2 E.U./dL, 1.0 E.U./dL 09/19/2024 1:39 AM EDT [facility] POC Urine Bilirubin Negative Negative 09/19/2024 1:39 AM EDT [facility] POC Urine Blood/HGB Large(A) Negative 09/19/2024 1:39 AM EDT [facility] Urine 09/19/2024 1:37 AM EDT 09/19/2024 1:39 AM EDT us Saucedo Ali DO POINT OF CARE TEST ORDERABLES Fi nal Result [facility] [address] [place] [address], [place] * (ABNORMAL) BLOOD CULTURE IDENTIFICATION PANEL (09/19/2024 1:23 AM EDT) [facility] Staphylococcus epidermidis PCR Detected(A) Not Detected 09/19/2024 8:31 PM EDT [facility] mecA/C gene PCR Detected (Methicilli n Resistance) (A) Not Detected 09/19/2024 8:31 PM EDT [facility] Blood Venous blood / Unknown 09/19/2024 1:23 AM EDT 09/19/2024 1:35 AM EDT us Ken Ontiveros MD MICROBIOLOGY - GENERAL ORDERABL ES Final Result [facility] [address] [place] [address], [place] [phone] * Troponin I, High Sensitivity 1 Hour (09/19/2024 1:23 AM EDT) Only the most recent of2 resultswithin the time period is included. TROPONIN I, HIGH SENSITIVITY 10 <16 ng/L 09/19/2024 1:57 AM EDT [facility] Blood Venous blood / Unknown 09/19/2024 1:23 AM EDT 09/19/2024 1:27 AM EDT us Ken Ontiveros MD LAB BLOOD ORDERABLES Final Resu lt [facility] [address] [place] [address], [place] * (ABNORMAL) Protein creat ratio (09/19/2024 1:23 AM EDT) URINE PROTEIN, RANDOM (MG/L) 1,350(H) <120 mg/L 09/19/2024 3:49 AM EDT [facility] URINE CREATININE,RDM 83.54 mg/dL 09/19/2024 3:49 AM EDT [facility] U/PRO/QUALITY CONTROL CHECKER RATIO CALC 1.62(H) <=0.20 09/19/2024 3:49 AM EDT [facility] Urine 09/19/2024 1:23 AM EDT 09/19/2024 3:14 AM EDT Narrative [facility] - 09/19/2024 3:49 AM EDT Nephrotic Syndrome is associated with ratios >3.5 us Ta Everett MD URINE ORDERABLES Final Result Performing Organization Address City/[facility]/ZIP Co de Phone Number [facility] [address] [place] [address], [place] [phone] * Extra Urine (09/19/2024 1:23 AM EDT) Extra Tube Auto Resulted 09/19/2024 4:01 AM EDT [facility] Urine 09/19/2024 1:23 AM EDT 09/19/2024 3:14 AM EDT us Ken Ontiveros MD URINE ORDERABLES Final Result Performing Organization Address City/[facility]/ZIP Co de Phone Number [facility] [address] [place] [address], [place] [phone] * Urine Creatinine,random (09/19/2024 1:23 AM EDT) URINE CREATININE,RDM 83.54 mg/dL 09/19/2024 3:49 AM EDT [facility] Urine 09/19/2024 1:23 AM EDT 09/19/2024 3:14 AM EDT us Ta Everett MD URINE ORDERABLES Final Result Performing Organization Address City/[facility]/ZIP Co de Phone Number [facility] [address] [place] [address], [place] [phone] * Sodium, urine, random (09/19/2024 1:23 AM EDT) URINE SODIUM,RANDOM 69 mmol/L 09/19/2024 3:49 AM EDT [facility] Urine 09/19/2024 1:23 AM EDT 09/19/2024 3:14 AM EDT us Ta Everett MD URINE ORDERABLES Final Result [facility] [address] [place] [address], [place] [phone] * (ABNORMAL) Urinalysis (09/19/2024 1:23 AM EDT) COLOR Colorless Yellow, Colorless 09/19/2024 7:33 AM EDT [facility] TURBIDITY Hazy(A) Clear 09/19/2024 7:33 AM EDT [facility] SPECIFIC GRAVITY 1.013 1.003 - 1.035 09/19/2024 7:33 AM EDT [facility] NITRITE Negative Negative 09/19/2024 7:33 AM EDT [facility] PH,URINE 5.5 5.0 - 8.5 09/19/2024 7:33 AM EDT [facility] LEUKOCYTE ESTERASE Small(A) Negative 09/19/2024 7:33 AM EDT [facility] PROTEIN 70 mg/dL(A) Negative 09/19/2024 7:33 AM EDT [facility] KETONES (URINE) Negative Negative 7:33 AM EDT [facility] UROBILINOGEN <1.1 eu/dL <1.1 eu/dL 09/19/2024 7:33 AM EDT [facility] BILIRUBIN (URINE) Negative Negative 09/19/2024 7:33 AM EDT [facility] BLOOD/HGB Moderate(A) Negative 09/19/2024 7:33 AM EDT [facility] MUCOUS Present(A) None 09/19/2024 7:33 AM EDT [facility] R.B.CELLS 17(H) 0 - 5 09/19/2024 7:33 AM EDT [facility] SQUAMOUS EPITHELIUM 1 0 - 5 09/19/2024 7:33 AM EDT [facility] W.B.CELLS 39(H) 0 - 5 09/19/2024 7:33 AM EDT [facility] GLUCOSE (URINE) Negative Negative 7:33 AM EDT [facility] Urine 09/19/2024 1:23 AM EDT 09/19/2024 3:14 AM EDT Narrative [facility] - 09/19/2024 7:33 AM EDT Urine received without preservative. Delays in transport may affect results. Interpret with caution. A clinical correlation is recommended. us Ta Everett MD URINE ORDERABLES Final Result [facility] [address] [place] [address], [place] [phone] * Troponin I, High Sensitivity 0 Hour (09/19/2024 12:26 AM EDT) TROPONIN I, HIGH SENSITIVITY 11 <16 ng/L 09/19/2024 1:07 AM EDT [facility] Blood Venous blood / Unknown 09/19/2024 12:26 AM EDT 09/19/2024 12:40 AM EDT us Ken Ontiveros MD LAB BLOOD ORDERABLES Final Resu lt [facility] [address] [place] [address], [place] * Lactate w/ Reflex (09/19/2024 12:26 AM EDT) LACTATE W/REFLEX 0.7 0.4 - 2.0 mmol/L 09/19/2024 1:49 AM EDT [facility] Blood Venous blood / Unknown 09/19/2024 12:26 AM EDT 09/19/2024 12:42 AM EDT Narrative [facility] [facility] - 09/19/2024 1:49 AM EDT Result did not trigger repeat Lactate, re-order if needed. us Ken Ontiveros MD LAB BLOOD ORDERABLES Final Resu lt [facility] [address] [place] [address], [place] [phone] * APTT (09/19/2024 12:26 AM EDT) Only the most recent of2 resultswithin the time period is included. APTT 28 26 - 37 sec 09/19/2024 1:17 AM EDT [facility] Blood Venous blood / Unknown 09/19/2024 12:26 AM EDT 09/19/2024 12:39 AM EDT us Ken Ontiveros MD LAB BLOOD ORDERABLES Final Resu lt Performing Organization Address City/[facility]/ZIP Co de Phone Number [facility] [address] [place] [address], [place] [phone] * (ABNORMAL) Protime & INR (09/19/2024 12:26 AM EDT) Only the most recent of2 resultswithin the time period is included. PROTIME 14.0(H) 9.8 - 13.2 sec 09/19/2024 1:17 AM EDT [facility] INR 1.2 0.9 - 1.2 09/19/2024 1:17 AM EDT [facility] Blood Venous blood / Unknown 09/19/2024 12:26 AM EDT 09/19/2024 12:39 AM EDT us Ken Ontiveros MD LAB BLOOD ORDERABLES Final Resu lt Performing Organization Address City/[facility]/ZIP Co de Phone Number [facility] [address] [place] [address], [place] [phone] * Hemoglobin A1c (09/19/2024 12:26 AM EDT) [facility] HEMOGLOBIN A1C 5.4 4.4 - 5.6 % 09/19/2024 6:15 AM EDT [facility] Comment: ADA Guidelines Result HgbA1c Normal : less than 5.7 % Prediabetes : 5.7 % to 6.4 % Diabetes : > 6.4 % Use with caution in patients with abnormal hemoglobin variants as the half-life of red blood cells and in vivo glycation rates are affected. EST. AVERAGE GLUCOSE 108 mg/dL 09/19/2024 6:15 AM EDT [facility] Blood Venous blood / Unknown 09/19/2024 12:26 AM EDT 09/19/2024 12:39 AM EDT Sandie IBANEZ LAB BLOOD ORDERABLES Final Re sult [facility] [address] [place] [address], * Ammonia (09/19/2024 12:26 AM EDT) [facility] AMMONIA 24 18 - 72 umol/L 09/19/2024 1:48 AM EDT [facility] Blood Venous blood / Unknown 09/19/2024 12:26 AM EDT 09/19/2024 12:43 AM EDT Ken Ontiveros MD LAB BLOOD ORDERABLES Final Resu lt [facility] [address] [place] [address], * Potassium (08/31/2024 11:05 AM EDT) Only the most recent of2 resultswithin the time period is included. [facility] Potassium, Bld 4.0 3.5 - 5.0 mmol/L 08/31/2024 11:28 AM EDT [facility] PLASMA 08/31/2024 11:0 5 AM EDT 08/31/2024 11:09 AM EDT us Richard Guadalupe MD LAB BLOOD ORDERABLES Final Res ult [facility] [address] [place] [address] * (ABNORMAL) Lipid profile (08/29/2024 12:52 PM EDT) Cholesterol 151 150 - 200 mg/dL 08/29/2024 9:16 PM EDT [facility] Triglycerides 112 27 - 150 mg/dL 08/29/2024 9:16 PM EDT [facility] HDL Cholesterol 29(L) >39 mg/dL 9:16 PM EDT [facility] Comment: HDL <40 mg/dL - High Risk HDL > or = 40mg/dL- Desirable HDL >60 mg/dL - Negative Risk VLDL 22 0 - 30 mg/dL 08/29/2024 9:16 PM EDT [facility] LDL (calc) 100 <130 mg/dL 08/29/2024 9:16 PM EDT [facility] Comment: LDL <100 mg/dL - Desirable LDL >160 mg/dL - High Risk Cholesterol:HDL Ratio 5.2(H) 1.0 - 5.0 08/29/2024 9:16 PM EDT [facility] PLASMA 08/29/2024 12:5 2 PM EDT 08/29/2024 1:02 PM EDT Larry Coles RELIGIOUS LEADER-SLINGER SEQUINS LAB BLOOD ORDERABLES Fin al Result [facility] [address] [facility] [place] [address] * POCT Ionized Calcium (08/29/2024 7:58 AM EDT) Portable ICA 4.6 4.5 - 5.3 mg/dL 08/29/2024 8:00 AM EDT [facility] Blood / Unknown 08/29/2024 7 :58 AM EDT 08/29/2024 8:00 AM EDT us Richard Guadalupe MD POINT OF CARE TEST ORDERABLES Final Result Performing Organization Address City/[facility]/ZIP Co de Phone Number [facility] [address] [place] [address], [place] [address] * (ABNORMAL) Troponin I, High Sensitivity 3 Hour (08/28/2024 11:50 PM EDT) 3 Hour Trop I, High Sensitivity 42(H) <16 ng/L 08/29/2024 12:30 AM EDT [facility] Comment: Elevations of hs-Troponin may be due to causes other than myocardial ischemia. Recommend serial hs-Troponin testing be performed. For the initial evaluation and management of chest pain patients, refer to the algorithms linked below. Emergency Patient: [email or web address] Inpatient: [email or web address] Blood Serum / Unknown 08/28/2024 1 1:50 PM EDT 08/29/2024 12:02 AM EDT us Gia Montejo RELIGIOUS LEADER-SLINGER SEQUINS LAB BLOOD ORDERABLES Alisha loza Result [facility] [address] [facility], [place] [address] * CT angiogram chest (08/28/2024 12:34 PM [...] for acute or suspicious pathology in the uwrac-dt-grpd. The trachea and bronchi are patent. No [...] negativefor acute or suspicious pathology in the nybzp-zj-vbct. The trachea and bronchi are patent. No [...] Saini MD on 08/28/2024 12:40 PM Gabby Haro RELIGIOUS LEADER-SLINGER SEQUINS [facility] ORDERABLES Final Re sult * (ABNORMAL) Troponin I, High Sensitivity (08/28/2024 10:34 AM EDT) Troponin I, High Sensitivity 29(H) <16 ng/L 08/28/2024 11:05 AM EDT [facility] Comment: Elevations of hs-Troponin may be due to causes other than myocardial ischemia. Recommend serial hs-Troponin testing be performed. For the initial evaluation and management of chest pain patients, refer to the algorithms linked below. Emergency Patient: [email or web address] Inpatient: [email or web address] Blood Serum / Unknown 08/28/2024 1 0:34 AM EDT 08/28/2024 10:36 AM EDT [facility]by [facility]OD ORDERABLES Final Result Performing Organization Address [facility] Co de Phone Number [address] [address] * (ABNORMAL) D-Dimer (08/28/2024 10:34 AM EDT) D-dimer 5,157(H) <255 ng/mL DDU 08/28/2024 11:17 AM EDT [facility] Comment: Results >=255ng/mL DDU: Results may be [...] EDT 08/28/2024 10:36 AM EDT Gabby Haro [facility] BLOOD ORDERABLES Final Result Performing Organization Address [facility] Co de Phone Number [address] [address] * SARS/FLU A+B/RSV by NAAT/Molecular (M4RT Collection Tube) (08/28/2024 10:32 AM EDT) Pathologist [facility] FLU A PCR Negative Negative^Ne gative 08/28/2024 11:42 AM EDT [facility] FLU B PCR Negative Negative^Ne gative 08/28/2024 11:42 AM EDT [facility] RSV by PCR Negative Negative^Ne gative 08/28/2024 11:42 AM EDT [facility] SARS CoV 2 BY PCR Not Detected Not Detected^No t Detected 08/28/2024 11:42 AM EDT [facility] Comment: NOTE The Xpert Xpress SARS-CoV-2/Flu/RSV [...] operators who are performing tests using either [employer] or [employer] formerly [employer] systems and is limited to laboratories that [...] specimen repeat. Fact Sheet for Healthcare Providers: https://www.fda.gov/media/651815/download Fact Sheet for Patients: https://www.fda.gov/media/642049/download Nasopharyngeal structure / Unknown 08/28/2024 10:32 AM EDT 08/28/2024 10:37 AM EDT Gabby Haro RELIGIOUS LEADER-SLINGER SEQUINS MICROBIOLOGY - GENERAL ORD ERABLES Final Result [address], [place] [address] from Last 3 Months Insurance [employer] MEDICARE Advance Directives * Full Code (Latest Code Status on File) Date Activated Date Inactivated Comments 09/19/2024 4:15 AM 09/29/2024 2:25 AM * Full Code Date Activated Date Inactivated Comments 08/28/2024 2:20 PM 09/01/2024 6:45 PM Care Teams Fire Protection Engineering Technician Relationship Specialty Start Date End Date Kristin Gracia, RELIGIOUS LEADER-SLINGER SEQUINS PCP - General Nurse Practitioner 08/28/24
--- OUTSIDE RECORDS SUMMARY | 2024-11-27 20:04 | XMS_ITS | Patient Health Record ---
Author Organization [facility] vices Address [address] [place], [place] [address] Care Team Providers Care Budget Engineer Name Role Phone Dian Salgado Unavailable [phone] Allergies No Known Allergies Reason For Referral [...] Problem Status W/U Status Risk Notes Problem BMI 40.0-44.9, adult (Z68.41) Active confirmed Vital Signs Heart Rate 82 /min 07/22/2024 Blood pressure diastolic 82 mm Hg 07/22/2024 Height-cm 170.18 cm 07/22/2024 Weight-kg 136.08 kg 07/22/2024 Height 5'7 in 07/22/2024 Blood pressure systolic 112 mm Hg 07/22/2024 Weight 300 lbs 07/22/2024 BMI 46.98 kg/m2 07/22/2024 Encounters Encounter Location Date Provider Diagnosis Dental Main [address] [place], [place] [id number] 07/22/2024 Dian Salgado BMI 40.0-44.9, joao lt [...] Insured Coverage Start Date Coverage End Date [facility] Medicare Advantage [facility] [address] [address] [place] [address] [id number] Yamilka Yates Self - patient is the insured [facility] Dental [address] [address] [place] [address] [phone] [id number] Yamilka Yates Self - patient is the insured 5
--- OUTSIDE RECORDS SUMMARY | 2024-11-27 20:04 | XMS_ITS | Encounter Summary ---
Author Organization [employer] tem Address [facility]-[id number] [address] [place] [address] Care Team Providers Care Thermo Cementing Folder Operator Name Role Phone HarveybereniceMamta perrya Tevin ANSARI-REAL ESTATE SERVICES COORDINATOR Primary Care Provider Encounter Details Date Type Department Care Team (Late st Contact Info) Description 11/13/2024 Documentation [facility] - Medical Oncology [address] [place] [address] Nancy Hernandez, RN Social History Tobacco Use Types Packs/Day Years Used Date Smoking Tobacco: Some Days Cigarettes Smokeless Tobacco: Never Alcohol Use Standard Drinks/Week Comments Never 0 (1 standard drink = 0.6 oz pur e alcohol) [facility] Utilities Answer Date Recorded In the [...] on filedocumented in this encounter Care Teams Thermo Cementing Folder Operator Relationship Specialty Start Date End Date Kristin Gracia, ROOM COOLER INSTALLER-REAL ESTATE SERVICES COORDINATOR PCP - General Nurse Practitioner 08/28/24 documented as of this encounter
--- OUTSIDE RECORDS SUMMARY | 2024-11-27 20:04 | XMS_ITS ---
Author Organization [facility] Address [facility]-[id number] [address] [place] [address] Care Team Providers Care Marine Transport Professionals Name Role Phone HarveybereniceKristin perry PAPER STEAMER-CITY COUNCILMAN Primary Care Provider Active Problems Problem Noted [...]
--- OUTSIDE RECORDS SUMMARY | 2024-11-27 20:04 | XMS_ITS | Encounter Summary ---
Author Organization [facility] Address [address] [place] [address] Care Team Providers Care Steam Pipe Fitter Name Role Phone HarveyberenicejesicaKristin beltran SPRAY GUN REPAIRER Unavailable [phone] Maxim Lanza MD Primary Care Provider [phone] Encounter Details Date Type Department Care Team (Late st Contact Info) Description 02/28/2024 Abstract [facility] [address] [place] [phone] Quyen Garcia RN [address] [place], [place] Social History Tobacco Use Types Packs/Day [...] often do you attend chur ch or mu-ism services? 1 to 4 times per year 06/04/2023 Do you belong to any clubs o r organizations such as jain groups, unions, fraternal or athletic groups, or [...] Recorded Patient Health Questionnaire-2 Score 2 12/02/2023 [facility] Occupat ional [facility] - Occupational Stress Questionnaire Answer [...] documented as of this encounter Care Teams Steam Pipe Fitter Relationship Specialty Start Date End Date Maxim Lanza MD [address] [place] [address] PCP - General Family Medicine 07/15/23 Kristin Gracia NP [address] [place] [address] Primary Care Provider Family Medicine 05/20/22 documented as of this encounter
--- OUTSIDE RECORDS SUMMARY | 2024-11-27 20:04 | XMS_ITS | Encounter Summary ---
Author Organization [employer] tem Address [facility] [id number] [address] [place] [address] Care Team Providers Care Stock Cutter Name Role Phone Kristin Gracia APRN-OSTRICH FARM WORKER Primary Care Provider Encounter Details Date Type Department Care Team (Late st Contact Info) Description 11/13/2024 [facility]iation [facility] [address] [place] [address] Guillermo Lundberg MD [address] [place], [place] [id number] Social History Tobacco Use Types Packs/Day Years Used Date Smoking Tobacco: Some Days Cigarettes Smokeless Tobacco: Never Alcohol Use Standard Drinks/Week Comments Never 0 (1 standard drink = 0.6 oz pur e alcohol) [facility] Utilities Answer Date Recorded In the past 12 months has [employer], gas, oil, or water [employer] threatened to shut off services in your [...] on filedocumented in this encounter Care Teams Stock Cutter Relationship Specialty Start Date End Date Kristin Gracia, OIL PIT ATTENDANT-OSTRICH FARM WORKER PCP - General Nurse Practitioner 08/28/24 documented as of this encounter
--- OUTSIDE RECORDS SUMMARY | 2024-11-27 20:04 | XMS_ITS | Encounter Summary ---
Author Organization [facility] Address [address] [place] [address] Care Team Providers Care Straightener Name Role Phone KatrinaDinah lybony Ho Primary Care Provider [phone] Pcp, Fartun MATHEMATICAL STATISTICIAN Primary Care Provider [facility] Wyatt Costa Primary Care Provider Frances [place] (Rn) vp product Provider Valdez Bhandari MD Primary Care Provider [phone] Dian Smith PA-C Unavailable [phone] Malinda Lopez APRN.[facility] Unavailable [phone] Source Comments In the event this information is protected by the Federal Confidentiality of Alcohol and Drug AbusePatient Records regulations: The Federal rules restrict any use of the information to criminally investigate or prosecute any alcohol or drug abuse patient.[facility] Encounter Details Date Type Department Care Team (Late st Contact Info) Description 08/13/2005 Abstract General Surgery [address] [id number] Tari Chavira MD [address] [id number] Social History Tobacco Use Types Packs/Day Years [...] old female submitted a completed questionnaire to [facility] for consideration of [...] months with weight loss of 16 #. [facility] in 2000 over 07 months with weight [...] hospitalizations. 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 08/2001;performed by Dr. Gauthier; whose phone # is [phone] Did you have aPAP test at the [...] Patient was referred to this program by [facility] Primary Care Physician Yahaira Sam Ma documented in this encounter Plan of Treatment Not on file documented as of this encounter Visit Diagnoses Not on filedocumented in this encounter Additional Health Concerns Infection Onset Date Last Indicated Resolved Time COVID-19 Rule-Out 08/06/2020 08/05/2020 08/26/2020 8:53 PM EDT documented as of this encounter Care Teams Straightener Relationship Specialty Start Date End Date KatrinaDinah lybony Ho [address] [place] [phone] PCP - General 05/23/04 11/15/11 Fartun Conti MATHEMATICAL STATISTICIAN PCP - General 11/16/11 05/20/12 Wyatt Braldey PCP - General Internal Medicine 05/21/12 12/05/17 Frances Hills (Rn), RN PCP - General 12/06/17 10/31/20 Valdez Acosta MD [address] [place] [address] PCP - General Internal Medicine 11/01/20 Dian Smith PA-C [address] [place] [address] [phone] Automatic Log Cut Off Sawyer Internal Medicine 04/26/24 05/21/24 Malinda Lopez, MATHEMATICAL STATISTICIAN.SOCIAL SCIENCES INSTRUCTOR [address] [place] [address] [phone] Automatic Log Cut Off [facility] Family Medicine 04/26/24 documented as of this encounter
--- OUTSIDE RECORDS SUMMARY | 2024-11-27 20:04 | XMS_ITS | Encounter Summary ---
Author Organization [employer] tem Address [facility] [place]-[id number] [address] [place] [address] Care Team Providers Care Plastic Surgery Technician Name Role Phone HarveybereniceKristin perry APRN-STITCHING MACHINE SETTER Primary Care Provider Encounter Details Date Type Department Care Team (Late st Contact Info) Description 11/19/2024 Orders Only Meera Albarado [facility] - Medical Oncology [address] [place] [address] Guillermo Lundberg MD [address] [place], [place] [id number] Social History Tobacco Use Types Packs/Day Years Used Date Smoking Tobacco: Some Days Cigarettes Smokeless Tobacco: Never Alcohol Use Standard Drinks/Week Comments Never 0 (1 standard drink = 0.6 oz pur e alcohol) [facility] Utilities Answer Date Recorded In the past 12 months has [employer], gas, oil, or water [employer] threatened to shut off services in your [...] on filedocumented in this encounter Care Teams Plastic Surgery Technician Relationship Specialty Start Date End Date Kristin Gracia, CENTRAL SUPPLY TECHNICIAN SUPERVISOR-STITCHING MACHINE SETTER PCP - General Nurse Practitioner 08/28/24 documented as of this encounter
--- OUTSIDE RECORDS SUMMARY | 2024-11-27 20:04 | XMS_ITS | Encounter Summary ---
Author Organization [employer] tem Address [facility]-[id number] [address] [place] [address] Care Team Providers Care Top Distribution Executive Name Role Phone HarveycaitierubyKristin Tevin ANSARI-BED RUBBER Primary Care Provider Encounter Details Date Type Department Care Team (Late st Contact Info) Description 11/19/2024 Orders Only Meera Albarado [facility] - Medical Oncology [address] [place] [address] Guillermo Lundberg MD [address] [place], [place] [id number] GBM (glioblastoma multiforme) ([facility]) (Primary Dx) Social History Tobacco Use Types Packs/Day Years Used Date Smoking Tobacco: Some Days Cigarettes Smokeless Tobacco: Never Alcohol Use Standard Drinks/Week Comments Never 0 (1 standard drink = 0.6 oz pur e alcohol) [facility] Utilities Answer Date Recorded In the past 12 months has [employer], gas, oil, or water [employer] threatened to shut off services in your [...] encounter Visit Diagnoses Diagnosis GBM (glioblastoma multiforme) ([facility])- Primary Malignant neoplasm of brain, unspecified site documented in this encounter Care Teams Top Distribution Executive Relationship Specialty Start Date End Date Kristin Gracia APRN-BED RUBBER PCP - General Nurse Practitioner 08/28/24 documented as of this encounter
--- OUTSIDE RECORDS SUMMARY | 2024-11-27 20:04 | XMS_ITS | Encounter Summary ---
Author Organization [employer] tem Address [facility] [place][id number] [address] [place] [address] Care Team Providers Care Policy Cancellation Clerk Name Role Phone Harveyberenicevicky Kristin Tevin ANSARI-HANGER OFF Primary Care Provider Encounter Details Date Type Department Care Team (Late st Contact Info) Description 11/19/2024 Orders Only Meera Albarado [facility] Cancer Center - Medical Oncology [address] [place] [address] She Drew, MOE GBM (glioblastoma multiforme) ([facility]) (Primary Dx) Social History Tobacco Use Types Packs/Day Years Used Date Smoking Tobacco: Some Days Cigarettes Smokeless Tobacco: Never Alcohol Use Standard Drinks/Week Comments Never 0 (1 standard drink = 0.6 oz pur e alcohol) [facility] Utilities Answer Date Recorded In the past 12 months has [employer], gas, oil, or water company threatened to [...] auto differential Lab Routine GBM (glioblastoma multiforme) ([facility]) weekly for 7 Occurrences starting 11/19/2024 until 11/19/2033 Comprehensive metabolic panel Lab Routine GBM (glioblastoma multiforme) ([facility]) weekly for 7 Occurrences starting 11/19/2024 [...] encounter Visit Diagnoses Diagnosis GBM (glioblastoma multiforme) ([facility])- Primary Malignant neoplasm of brain, unspecified site documented in this encounter Care Teams Policy Cancellation Clerk Relationship Specialty Start Date End Date Kristin Gracia, TOUCH UP WORKER-HANGER OFF PCP - General Nurse Practitioner 08/28/24 documented as of this encounter
--- OUTSIDE RECORDS SUMMARY | 2024-11-27 20:04 | XMS_ITS | Encounter Summary ---
Author Organization [facility] tem Address [facility]-[id number] [address] [place] [address] Care Team Providers Care Housing Case Manager Name Role Phone HarveybereniceKristin perry FRUIT OR NUT FARMER-DIRECTOR MEDICARE SALES Primary Care Provider Encounter Details Date Type Department Care Team ([facility] st Contact Info) Description 11/11/2024 Telephone [facility] Hematology Oncology, A Department of [facility] [address] [facility] [address] [place] [phone] Ellie Coleman CMA Social History Tobacco Use Types Packs/Day Years Used Date Smoking Tobacco: Some Days Cigarettes Smokeless Tobacco: Never Alcohol Use Standard Drinks/Week Comments Never 0 (1 standard drink = 0.6 oz pur e alcohol) [facility] Utilities Answer Date Recorded In the past [...] on filedocumented in this encounter Care Teams Housing Case Manager Relationship Specialty Start Date End Date Kristin Gracia, ELAN-DIRECTOR MEDICARE SALES PCP - General Nurse Practitioner 08/28/24 documented as of this encounter
--- OUTSIDE RECORDS SUMMARY | 2024-11-27 20:04 | XMS_ITS | Encounter Summary ---
Author Organization [facility] Address [id number] [address] [place] [address] Care Team Providers Care Blender / Cook Name Role Phone Harveyberenicevicky Kristin Tevin ANSARI-INCLUSION TEACHER Primary Care Provider Encounter Details Date Type Department Care Team (Late st Contact Info) Description 11/24/2024 Documentation Meera Albarado [facility] - Medical Oncology [address] [place] [address] Priyanka Velez, RN Social History Tobacco Use Types Packs/Day Years Used Date Smoking Tobacco: Some Days Cigarettes Smokeless Tobacco: Never Alcohol Use Standard Drinks/Week Comments Never 0 (1 standard drink = 0.6 oz pur e alcohol) [facility] Utilities Answer Date Recorded In [...] Received a call from nurse Jessica at [facility]. She has informed our office that patient's [...] on filedocumented in this encounter Care Teams Blender / Cook Relationship Specialty Start Date End Date Kristin Gracia, STOCK RAISER-INCLUSION TEACHER PCP - General Nurse Practitioner 08/28/24 documented as of this encounter
--- OUTSIDE RECORDS SUMMARY | 2024-11-27 20:04 | XMS_ITS | Encounter Summary ---
Author Organization [facility] Address [facility] [place]-[id number] [address] [place] [address] Care Team Providers Care Pool Cleaner Name Role Phone HarveyKristin yu Tevin OFFSET MACHINE OPERATOR-DIRECTOR OF FIELD SALES Primary Care Provider Encounter Details Date Type Department Care Team (Late st Contact Info) Description 09/19/2024 Orders Only [facility] External Film Storage [address] [place] [phone] Transcribe, Orders Support User Pain (Primary Dx) Social History Tobacco Use Types Packs/Day Years Used Date Smoking Tobacco: Some Days Cigarettes Smokeless Tobacco: Never Alcohol Use Standard Drinks/Week Comments Never 0 (1 standard drink = 0.6 oz pur e alcohol) [facility] Utilities Answer Date Recorded In the [...] pain documented in this encounter Care Teams Pool Cleaner Relationship Specialty Start Date End Date Kristin Gracia, OFFSET MACHINE OPERATOR-DIRECTOR OF FIELD SALES PCP - General Nurse Practitioner 08/28/24 documented as of this encounter
--- NOTE | 2024-11-27 20:05 | ED.AMS1 ---
HPI - Altered Mental Status General Chief Complaint: Altered Mental Status Stated Complaint: ALTERED MENTAL STATUS Time Seen by Provider: 11/27/24 19:54 History of Present Illness HPI narrative: The patient is a 54-year-old with a known past medical history of multiple sclerosis. She presents to the emergency department from a care facility. She has a DNR but she is still receiving treatment. The patient is presenting to the emergency department today for altered level of consciousness. Patient cannot provide any reliable medical history. MD complaint: Reports altered mental status, confusion, decreased responsiveness and weakness Onset (ago): day(s) (one) Related Data Home Medications ?Medication ?Instructions ?Recorded ?Confirmed acetaminophen 325 mg tablet 650 mg PO Q6H PRN pain 10/17/24 11/24/24 (Tylenol) albuterol sulfate 2.5 mg/3 mL 2.5 mg inhalation Q4H PRN 10/17/24 11/24/24 (0.083 %) solution for nebulization shortness of breath or wheezing levetiracetam 500 mg tablet 500 mg PO Q12H 10/17/24 11/24/24 mirtazapine 15 mg disintegrating 15 mg PO HS 10/17/24 11/24/24 tablet sennosides 8.6 mg-docusate sodium 2 tab-cap PO .QHS 10/17/24 11/24/24 50 mg tablet (Senna Plus) trazodone 50 mg tablet 25 mg PO HS 10/17/24 11/24/24 bumetanide 1 mg tablet 2 mg PO DAILY 11/24/24 11/24/24 docusate sodium 100 mg capsule 100 mg PO BID 11/24/24 11/24/24 (Colace) ondansetron 8 mg disintegrating 8 mg translingual Q8H PRN nausea 11/24/24 11/24/24 tablet and vomiting potassium chloride 10 mEq 10 meq PO DAILY 11/24/24 11/24/24 capsule,extended release Previous Rx's ?Medication ?Instructions ?Recorded amino acids-protein hydrolysate 15 1 ea PO BID #2,880 mL 10/21/24 gram-100 kcal/30 mL oral liquid pkt (Pro-Stat Sugar Free) metoprolol succinate 100 mg 100 mg PO QD #30 tabs 10/21/24 tablet,extended release 24 hr zinc oxide 40 % topical ointment 1 applic topical QID PRN Skin 10/21/24 (Diaper Rash) Irritation #397 grams Allergies Allergy/AdvReac Type Severity Reaction Status Date / Time No Known Drug Allergies Allergy Verified 11/24/24 18:12 Review of Systems ROS Narrative 10 Systems were reviewed, and unless noted in the HPI, all other systems are reviewed, unremarkable, or noncontributory. [facility] Medical History (Updated 11/27/24 @ 23:24 by Miri Chun DO) Elevated troponin ?R79.89 - Other specified abnormal findings of blood chemistry (ICD-10) Acute diastolic heart failure ?I50.31 - Acute diastolic (congestive) heart failure (ICD-10) Cardiac murmur ?R01.1 - Cardiac murmur, unspecified (ICD-10) Iron deficiency anemia ?D50.9 - Iron deficiency anemia, unspecified (ICD-10) Respiratory acidosis ?E87.29 - Other acidosis (ICD-10) Hypertensive urgency ?I16.0 - Hypertensive urgency (ICD-10) Severe protein-calorie malnutrition ?E43 - Unspecified severe protein-calorie malnutrition (ICD-10) Morbid obesity ?E66.01 - Morbid (severe) obesity due to excess calories (ICD-10) Acute hypoxic respiratory failure ?J96.01 - Acute respiratory failure with hypoxia (ICD-10) Acute combined systolic (congestive) and diastolic (congestive) heart failure ?I50.41 - Acute combined systolic (congestive) and diastolic (congestive) heart failure (ICD-10) Edema, peripheral ?R60.0 - Localized edema (ICD-10) Chronic obstructive pulmonary disease with (acute) exacerbation ?J44.1 - Chronic obstructive pulmonary disease with (acute) exacerbation (ICD-10) Congestive heart failure ?I50.9 - Heart failure, unspecified (ICD-10) Respiratory failure ?J96.90 - Respiratory failure, unspecified, unspecified whether with hypoxia or hypercapnia (ICD-10) Brain mass ?G93.89 - Other specified disorders of brain (ICD-10) Urinary tract infection ?N39.0 - Urinary tract infection, site not specified (ICD-10) Bladder dysfunction ?N31.9 - Neuromuscular dysfunction of bladder, unspecified (ICD-10) Weakness ?R53.1 - Weakness (ICD-10) Dysphagia ?R13.10 - Dysphagia, unspecified (ICD-10) Rhabdomyolysis ?M62.82 - Rhabdomyolysis (ICD-10) Muscle weakness ?M62.81 - Muscle weakness (generalized) (ICD-10) Depression ?F32.A - Depression, unspecified (ICD-10) Sleep apnea ?G47.30 - Sleep apnea, unspecified (ICD-10) Insomnia ?G47.00 - Insomnia, unspecified (ICD-10) Anxiety ?F41.9 - Anxiety disorder, unspecified (ICD-10) Panic disorder ?F41.0 - Panic disorder [episodic paroxysmal anxiety] (ICD-10) Hyperlipemia ?E78.5 - Hyperlipidemia, unspecified (ICD-10) Hypertension ?I10 - Essential (primary) hypertension (ICD-10) Nutritional deficiency ?E63.9 - Nutritional deficiency, unspecified (ICD-10) Bipolar 1 disorder ?F31.9 - Bipolar disorder, unspecified (ICD-10) Pressure injury of sacral region, stage 2 ?L89.152 - Pressure ulcer of sacral region, stage 2 (ICD-10) Obesity ?E66.9 - Obesity, unspecified (ICD-10) Multiple sclerosis ?G35 - Multiple sclerosis (ICD-10) Surgical History History of craniotomy ?Z98.890 - Other specified postprocedural states (ICD-10) Social History Highest level of school completed/degree received: don't know Little interest or pleasure in doing things: not at all Feeling down, depressed, or hopeless: not at all Exam Narrative Exam Narrative: Prior to examining the patient, I have washed with hospital approved and provided Antiseptic Hand Veterinarian Epidemiologist and have also applied gloves.? Prior to touching the patient, I asked for consent to examine the patient.? General: Alert with loud and noxious stimulation. Patient will answer one-word questions. Patient is morbidly obese with a BMI of likely greater than 40. Eye: PERRL, EOMI, normal conjunctiva. 4 mm and reactive. No nystagmus appreciated when the patient opens her eyes HENT: Normocephalic, normal hearing, dry oral mucosa, no scleral icterus, no sinus tenderness. Neck: Supple, non-tender, no carotid bruits, no JVD, no lymphadenopathy. Lungs: Clear to auscultation and percussion, non-labored respiration. No rhonchi, rales, or wheezing Heart: Normal rate, regular rhythm, no murmur, gallop or edema. No evidence of any peripheral edema Abdomen: Soft, non-tender, non-distended, normal bowel sounds, no masses. Abdomen is soft. Patient has no guarding. Rectal exam reveals normal rectum. Patient had good rectal tone. I obtained soft brown stool. It was in good quantity. I sent in a Hemoccult card. Musculoskeletal: Normal range of motion and strength, no peripheral swelling. The patient does however have generalized tenderness which she can of hurts everywhere.. Skin: Skin is warm, dry and pink, no rashes or lesions. Blanchable redness to the sacrococcygeal area. The patient does not have any lesions to the spine. The back looks well. Neurologic: Awake, alert, and oriented X3, CN II-XII intact. Psychiatric: Cooperative, appropriate mood and affect.? Following the conclusion of the examination, I have washed my hands thoroughly after removing examination gloves. Constitutional Vital Signs, click to edit/add: Last Vital Signs Temp 99.5 F 11/27/24 21:19 Pulse 79 11/28/24 00:31 Resp 24 H 11/28/24 00:31 BP 107/52 11/28/24 00:31 Pulse Ox 97 11/28/24 00:16 O2 Del Method Nasal Cannula 11/27/24 21:14 O2 Flow Rate 2 11/27/24 21:14 Course Course Hospital Course: Patient was evaluated in the emergency department. On arrival it appears that she has criteria for sepsis. Patient was started on IV fluids in our emergency department. In addition, we finished the medic liter bag of 0.9% saline. The patient does have MS. She is a DNR. Patient has a chronic indwelling Ayala catheter. She is morbidly obese. Once we had multiple people we were able to turn the patient patient does not have any evidence of skin breakdown as an impetus for infection. She has some erythema to the coccyx and sacral area but it is easily blanchable. We will continue to monitor the patient and turn her while in the emergency department until she gets a bed. Reevaluation(s) Reevaluation #1: Patient has been reevaluated multiple times. She has morbid obesity and the patient's forearms have been the only thing that we been able to get pressures on. And they often slide down. When the patient is typically readjusted with her arms to her side we usually get a pressure that is systolic over 90. However, the patient did have 2 consecutive low pressures with a manual cuff late in her assessment. Therefore the patient was started on Levophed. It will be titrated to keep the systolic pressure above 100 and a MAP of greater than 60. In consideration, everything for sepsis was utilized including the power plan. But the patient had lactic acid, blood cultures x 2, 30 cc/kg bolus of fluids based on her ideal body weight. She received antibiotic therapy with Rocephin 2 g IV piggyback and timely fashion. The patient responded well while active fluids were resuscitating but due to the recurrent hypotension sepsis was identified at 11 PM. Levophed was ordered. Consultations Consultation #1: Discussed with Dr. Oneill. He asked that we get a CAT scan of the patient's head. If the CAT scan was negative then he would accept the admission of the patient to our hospital. Time: 23:11 Vital Signs Vital signs: Vital Signs Pulse Oximetry 90 L 11/27/24 19:57 Temperature 99.5 F 11/27/24 21:19 Pulse Rate 79 11/28/24 00:31 Respiratory Rate 24 H 11/28/24 00:31 Blood Pressure 107/52 11/28/24 00:31 Pulse Oximetry 97 11/28/24 00:16 Oxygen Delivery Method Nasal Cannula 11/27/24 21:14 Oxygen Delivery Flow Rate 2 11/27/24 21:14 MDM - Altered Mental Status Differential Diagnosis Differential diagnosis: Likely altered mental status, delirium, dementia, hypoglycemia, hyponatremia, subarachnoid hemorrhage, sepsis and OTHER (Fever, UTI, hypotension) Medical Records Attestation: I reviewed the patient's medical records. Lab Data Attestation: I reviewed the patient's lab results. Labs: Lab Results 11/27/24 11/27/24 11/27/24 Range/Units 20:15 20:36 21:25 WBC 19.9 H (4.0-11.0) 10^3/uL RBC 2.82 L (4.20-5.40) 10^6/uL Hgb 7.6 L (12.0-16.0) g/dL Hct 24.6 L (36.0-48.0) % MCV 87.2 (81.0-99.0) fL MCH 27.0 (26.7-34.0) pg MCHC 30.9 (29.9-35.2) g/dL RDW 17.6 H (11.0-15.0) % Plt Count 177 (150-450) 10^3/uL MPV 11.1 (9.5-13.5) fL Seg Neuts % (Manual) 82.0 H (43.0-75.0) Lymphocytes % (Manual) 4.0 L (20.5-60.0) % Monocytes % (Manual) 14.0 H (1.7-12.0) % Eosinophils % (Manual) 0.0 L (0.9-7.0) % Basophils % (Manual) 0.0 L (0.2-2.0) % Neutrophils # (Manual) 16.31 H (1.4-6.5) 10^3/uL Lymphocytes # (Manual) 0.79 L (1.20-3.80) 10^3/uL Monocytes # (Manual) 2.78 H (0.30-0.80) 10^3/uL Eosinophils # (Manual) 0.00 (0.00-0.70) 10^3/uL Basophils # (Manual) 0.00 (0.00-0.10) 10^3/uL PT 12.9 H (9.0-11.6) sec INR 1.24 Sodium 137 (136-145) mmol/L Potassium 3.8 (3.5-5.1) mmol/L Chloride 101 (98-107) mmol/L Carbon Dioxide 30.3 (21.0-32.0) mmol/L Anion Gap 9.5 BUN 37.0 H (7.0-18.0) mg/dL Creatinine 3.05 H (0.55-1.02) mg/dL Est GFR ( Amer) 19 L (>=60 mL/min/1.73m^2) Est GFR (Non-Af Amer) 16 L (>=60 mL/min/1.73m^2) BUN/Creatinine Ratio 12.1 Glucose 137 H (74-106) mg/dL Lactate 1.2 (0.4-2.0) mmol/L Calcium 7.8 L (8.5-10.1) mg/dL Magnesium 2.1 (1.8-2.4) mg/dL Total Bilirubin 0.5 (0.2-1.0) mg/dL AST 16 (15-37) U/L ALT <6 L (14-59) U/L Alkaline Phosphatase 72 (46-116) U/L Total Protein 5.2 L (6.4-8.2) g/dL Albumin 1.6 L (3.4-5.0) g/dL Globulin 3.6 g/dL Albumin/Globulin Ratio 0.4 Urine Color Dk yellow (YELLOW) Urine Clarity Cloudy A (CLEAR) Urine pH 6.5 (5.0-9.0) Ur Specific [place] 1.020 (1.005-1.025) Urine Protein >=300 A (NEG/TRACE) mg/dL Urine Glucose (UA) Negative (NEGATIVE) mg/dL Urine Ketones Negative (NEGATIVE) mg/dL Urine Occult Blood Large A (NEGATIVE) Urine Nitrite Negative (NEGATIVE) Urine Bilirubin Small A (NEGATIVE) Urine Urobilinogen 0.2 (0.2-1.0) EU/dL Ur Leukocyte Esterase Moderate A (NEGATIVE) Urine RBC >100 A (0-2) #/HPF Urine WBC 75-100 A (NONE SEEN) #/HPF Ur Squamous Epith Cells Few A (NONE/RARE) #/LPF Urine Crystals None seen (None Seen) #/HPF Urine Bacteria Moderate A (NONE SEEN) #/HPF Urine Casts Seen A (NONE SEEN) #/LPF Fine Granular Casts Rare Urine Mucus Moderate A (NONE SEEN) Ur Culture Indicated? Yes-[facility] [place] Stool Occult Blood Negative Imaging Data Chest x-ray: Attestation: I have reviewed the pertinent imaging results. Radiologist's impression: ITS Impressions Chest X-Ray 11/27/24 20:01 IMPRESSION: Mild central vascular congestion. Predominantly right basilar pleural-parenchymal disease. Impression dictated by: Franklin Paniagua M.D. 11/27/2024 8:51 PM Dictation Location: [place] [address] Electronically authenticated by: [id number] Y Date: 11/27/2024 20:[address] 11/27/24 22:59 IMPRESSION: INTERVAL POSTSURGICAL CHANGES STATUS POST RIGHT TEMPORAL CRANIOTOMY AND RESECTION OF THE MASS. FOCAL RIGHT POSTERIOR FRONTAL HYPOATTENUATION NOTED QUESTION DUE TO PRIOR STROKE. HOWEVER SMALL FOCUS OF VASOGENIC EDEMA COULD BE CONSIDERED MILD CHRONIC SMALL VESSEL ISCHEMIC DISEASE WITH EVIDENCE OF REMOTE AREAS OF LEFT ANTERIOR INSULAR/FRONTAL STROKE. Impression dictated by: Franklin Paniagua M.D. 11/27/2024 11:54 PM Dictation Location: [place] [address] Electronically authenticated by: [id number] Y Date: 11/27/2024 23:54 ECG Data Attestation: I personally reviewed and interpreted this ECG as follows: ECG interpretation date: 11/27/24 ECG interpretation time: 20:02 Prior ECG tracings: available for review Ischemic changes: non-specific ST-T wave changes Interpretation: The patient twelve-lead EKG reveals a sinus rhythm with a ventricular of 92 bpm. The IL interval and QRS duration are normal. QTc is not prolonged. [place] is normal. No evidence of ST segment elevation or depression suggestive of infarction or ischemia. Critical Care Time Critical Care Time Critical Care Time: Yes Total Critical Care Time: 40 Attestation: Critical care time of 40 minutes was utilized. This was needed for the treatment and prevention of clinically significant and life-threatening infectious etiology associated with septic shock. The patient necessitated emergent evaluation because she was hypotensive. I necessitated a very complex methodical assessment of the patient. It necessitated cognitive consideration of the case. I had reviewed the patient's old medical records. We did document the patient's chart to help facilitate continuity of care. This was devoid of all procedures. Discharge Plan Discharge Chief Complaint: Altered Mental Status Clinical Impression: BRANDON (acute kidney injury), Altered mental status, Anemia, Hypocalcemia, UTI (urinary tract infection), Multiple sclerosis, Chronic indwelling Ayala catheter, Septic shock Patient Disposition: Admitted As Inpatient Condition: Fair
--- OUTSIDE RECORDS SUMMARY | 2024-11-27 20:10 | XMS_ITS | CCD ---
Author Organization [facility] Care Team Providers Care Cab Worker Name Role Phone , August HEAD OF DESIGN Unavailable Unavailable August HEAD OF DESIGN Unavailable Unavailable August HEAD OF DESIGN Unavailable Unavailable Jaleesa Lara Unavailable [facility], [facility] Primary Care Provider [phone]( [phone] MD Liyah Rosa Attending Provider Valdez Acosta MD Primary Care Provider Liyah Rosa Unavailable [phone] Valdez Acosta MD Primary Care Provider [phone] Valdez Acosta MD Primary Care Provider AICHHOLZ, HEAD OF DESIGN FRED Admitting Unavailable AICHHOLZ, HEAD OF DESIGN FRED Attending Unavailable AICHHOLZ, HEAD OF DESIGN FRED Primary Care Unavailable TAMLYN ., YAHAIRA Consulting Unavailable TAMLYN ., YAHAIRA Admitting Unavailable TAMLYN ., YAHAIRA Attending Unavailable AICHHOLZ, HEAD OF DESIGN FRED Primary Care Unavailable TAMLYN ., YAHAIRA Consulting Unavailable THEA LYNN Consulting Unavailable YASH CALLAHAN Consulting Unavailable AICHHOLZ, HEAD OF DESIGN FRED Admitting Unavailable AICHHOLZ, HEAD OF DESIGN FRED Attending Unavailable AICHHOLZ, HEAD OF DESIGN FRED Primary Care Unavailable AICHHOLZ, HEAD OF DESIGN FRED Consulting Unavailable AICHHOLZ, HEAD OF DESIGN FRED Admitting Unavailable AICHHOLZ, HEAD OF DESIGN FRED Attending Unavailable AICHHOLZ, HEAD OF DESIGN FRED Primary Care Unavailable AICHHOLZ, HEAD OF DESIGN FRED Consulting Unavailable ML, DR ANTUNEZ Admitting Unavailable MISC, DR ANTUNEZ Attending Unavailable AICHHOLZ, HEAD OF DESIGN FRED Primary Care Unavailable MISC, DR ANTUNEZ Consulting Unavailable Aichholz SWIMMING POOL MAINTENANCE, Fred Unavailable Maxim Lanza MD Primary Care Provider [phone] Valdez Acosta MD Primary Care Provider VINCE, [...] , AUGUST L Primary Care Physician Unavailab no AGUILERA, AUGUST Primary Care Unavailable Brooks, Eliazar T Referring Unavailable Brooks, Eliazar T Attending Unavailable Brooks, Eliazar T Admitting Unavailable NONE, XXXX Primary Care Physician Unavailab Keli Montanez Unavailable Unavailable Aichholz SWIMMING POOL MAINTENANCE, Fred Unavailable Myla BENITEZ, Maxim Primary Care Provider Sarah FIGUEROA, Sherrie Unavailable John MOTORCOACH OPERATOR.RUBINA, Elizabeth Lantigua Unavailable SHERRIE BOONE Attending Unavailabl e MONIKAHCHAD PEARLA Attending Unavailable HILLS, YAHAIRA D Referring Unavailable [...] PELLETIER Attending Unavailable AICHHOLZ, FRED Attending Unavailable LIYAH INDERJIT Attending Unavailable BROOKS, ELIAZAR T Referring Unavailable BROOKS, ELIAZAR T Attending Unavailable LIYAH INDERJIT Attending Unavailable BROOKS, ELIAZAR T Referring Unavailable LIYAH, INDERJIT Attending Unavailable BROOKS, ELIAZAR T Referring Unavailable HILLS, YAHAIRA D Attending Unavailable AICHHOLZ, FRED Attending Unavailable Yasmani BENITEZ, Tripp Carbone Attending Provider [phone] AICHHOLZ, FRED J Primary Care Unavailable KENROY PÉREZ Admitting Unavailable ONLY), [facility] (INPATIENT Consult ing Unavailable СЕРГЕЙ LYNCH Attending Unavailable MUNIRA HARO Attending Unavailable MUNIRA HARO Referring Unavailable AICHHOLZ, FRED J Primary Care Unavailable MUNIRA HARO Attending Unavailable MUNIRA HARO Referring Unavailable AICHHOLZ, FRED J Primary Care Unavailable Aichholz MOTORCOACH OPERATOR-HEAD OF DESIGN, Fred J Primary Care Provider PROVIDER, UNKNOWN Attending Unavailable PROVIDER, UNKNOWN Admitting Unavailable Aichholz MOTORCOACH OPERATOR-HEAD OF DESIGN, Fred J Primary Care Provider Aichholz MOTORCOACH OPERATOR-HEAD OF DESIGN, Fred J Primary Care Provider Alonzo Holguin MD Attending Provider AICJUDIE, FRED J Primary Care Unavailable MIRIAM CHURCH Consulting Unavailable SHEILA JUNG Admitting Unavailable JULIO FERNANDEZ Attending Unavailable JAIR ESPINAL Consulting Unavailable [facility], INCDread Consulti aline Unavailable CARDIOLOG[facility], [facility] Consulting Unavailable SKYE LARA Consulting Unavailab Alonzo Moore Attending Unavailable Alonzo Holguin Admitting Unavailable Tripp Gruber Attending Unavailable Tripp Gruber Admitting Unavailable ADONAY CASTILLO Attending Unavailable AICHHOLZ, FRED J Referring Unavailable AICHHOLZ, FRED J Primary Care Unavailable GUILLERMO MENDOZA Attending Unavailable REJI GARCIA Referring Unavailable AICHHOLZ, FRED J Primary Care Unavailable AICHHOLZ, FRED J Referring Unavailable AICHHOLZ, FRED J Primary Care Unavailable SAPPHIRE SANDOVALT Attending Unavailable ALY SANDOVALHANT Referring Unavailable AICHHOLZ, FRED J Primary Care Unavailable AICHHOLZ, FRED J Referring Unavailable AICHHOLZ, FRED J Primary Care Unavailable VEMPATI, RICHIE Referring Unavailable AICHHOLZ, FRED J Primary Care Unavailable Storm Chapman MD Attending Provider [phone] NON STAFF Primary Care Provider Unavailabl e AICHHOLZ, FRED J Referring Unavailable AICHHOLZ, FRED J Primary Care Unavailable AICHHOLZ, FRED J Referring Unavailable AICHHOLZ, FRED J Primary Care Unavailable AICHHOLZ, FRED J Referring Unavailable FRED GRACIA Primary Care Unavailable REJI GARCIA Attending Unavailable Eliazar Brooks Admitting Unavailable Eliazar Brooks Attending Unavailable Eliazar Brooks Referring Unavailable August Primary Care Unavailable JuliSilvia Attending Unavailable BYRON, HENRY Pedraza Attending Unavailab HENRY Cerrato Attending UnavailEliazar Artis Attending Unavailable Eliazar Brooks Referring Unavailable Eliazar Brooks Admitting Unavailable SARY COLIN Primary Care Physician Allergies Allergy Classification Reported Allergen(s) Allergy Type Date of Onset Reaction(s) Facility (1 source) -No Environmental Allergies Allergy to [facility] Work Phone: (2 sources) Acetaminophen / HYDROcodone; Translations: [Vicodin] Drug Allergy [facility] Repository (2 sources) Penicillins; Translations: [penicillins] Propensity to adverse reactions (disorder) [facility] Repository Medications Current Medications Medication Drug Class(es) Dates Sig (Normalized) Sig (Original) acetaminophen 325 mg oral capsule (20 sources) Start: 11-19-2024 take 1 capsule by mouth every six hours as needed Acetaminophen 325 mg capsule Active 325 MG PO Every 6 hours as needed November 19, 2024 12:00am Complies with drug therapy Start: 06-30-2016 take 1000 mg by mout h every six hours as needed for pain Tylenol 1,000 mg, Oral, q6hr, PRN as needed for pain Start Date: 06/30/16 Status: Ordered Repeat number: 1 take 2 tablets by mo uth every six hours as needed for pain [...] hours as needed for shoulder surgical pain., [employer] #72, 167.7, cm, 02/05/24 11:09:00 EDT, Height/Length Dosing, 131.3, kg, 02/05/24 11:09:00 EDT, Weight Dosing Start Date: 02/06/24 Status: Ordered Start: 02-06-2024 End: 04-15-2024 Percocet 5 mg-325 mg oral ta blet See Instructions, 40 tab(s), Refill(s) 0, Take one to two oral every 4 hours as needed for shoulder surgical pain., [employer] #72, 167.7, cm, 02/05/24 11:09:00 EDT, Height/Length Dosing, 131.3, kg, 02/05/24 11:09:00 EDT, Weight Dosing Start Date: 02/06/24 Status: Ordered Quantity: 40.0 Unit: tab(s) Repeat number: 1 Indications: Other specified joint disorders, left shoulder; albuterol 0.83 mg/ml inhalation solution (20 sources) beta2-Adrenergic Agonist Start: 11-19-2024 take 2.5 mg by inhalation every four hours as needed Albuterol Sulfate 2.5 mg /3 mL (0.083 %) solution for nebulization Active 2.5 MG INHALATION Every 4 hours as needed November 19, 2024 12:00am Complies with drug therapy Start: 10-10-2023 take 2 puff(s) by in halation every six hours for wheezing albuterol HFA (Ventolin HFA) 90 mcg/act inhaler Indications: Chronic bronchitis, unspecified chronic bronchitis type (HCC) Inhale [...] hours as needed for wheezing and dyspnea Amino Acids-Protein Hydrolys (Pro-Stat Sugar Free) 15-100 gram-kcal/30 mL liquid (1 source) Start: Amino Acids-Protein Hydrolys (Pro-Stat Sugar Free) 15-100 gram-kcal/30 mL liquid Active 1 EACH PO Twice daily November 19, 2024 12:00am Complies with drug therapy amoxicillin 875 mg oral tablet (4 sources) Penicillin-class Antibacterial Start: End: take 1 tablet by mouth in the [...] oral tablet (4 sources) Penicillin-class Antibacterial Start: End: take 1 tablet by mouth in the morning amoxicillin-clavulana te (Augmentin) 875-125 MG tablet Indications: Diverticulitis Take [...] 07/06/2023 Active ARIPiprazole 10 mg oral tablet (15 sources) Atypical Antipsychotic Start: 07-07-2024 End: 08-06-2024 take 1 tablet by mouth once daily ARIPiprazole (Abilify) 10 MG tablet Indications: Major depressive disorder, recurrent, moderate (HCC) , Generalized anxiety disorder with panic attacks Take 1 [...] oral solution (1 source) alpha-Adrenergic Agonist, Uncompetitive Z-yptsjh-E-aspartat e Receptor Antagonist, Sigma-1 Agonist Start: 04-15-2024 [...] use. 3 g 1 12/02/2023 03/01/2024 Active bumetanide 2 mg oral tablet (17 sources) Loop Diuretic Start: 11-06-2024 bumetanide (BUMEX) 2 mg tablet 11/06/2024 Active buPROPion hydrochloride 75 mg oral tablet (1 source) Aminoketone Start: 06-30-2016 take 1 tablet by mouth once daily Wellbutrin 75 mg Tab 75 mg = 1 tab(s), Oral, Daily Start Date: 06/30/16 Status: Ordered busPIRone hydrochloride 7.5 mg oral tablet (20 sources) Start: 09-15-2024 take 1 tablet by mouth three times daily busPIRone 7.5 mg oral tablet 7.5 mg = 1 tab(s), Oral, TID, # 90 tab(s), Refills(s) 0 Start Date: 10/09/24 Status: Ordered Quantity: 90.0 Unit: tab(s) Repeat number: 1 Start: 08-18-2024 End: 09-29-2024 busPIRone (BUSPAR) 7.5 mg ta blet Take 1 tablet (7.5 mg total) by mouth. 09/15/2024 Active Start: 07-07-2024 End: 08-18-2024 take 1 [...] 20 mg/ml injection (1 source) Start: 09-19-2024 Fiber Tab (1 source) Start: 10-09-2024 take 1 tablet by mouth four times daily Fiber Tabs mg, Oral, QID, Refills(s) 0 Start Date: 10/09/24 Status: Ordered Repeat number: 1 cetirizine hydrochloride 10 mg oral tablet (14 sources) Histamine-1 Receptor Antagonist Start: 06-17-2024 End: [...] 1,000 Units by mouth once daily. dexamethasone 4 mg oral tablet (20 sources) Corticosteroid Start: 10-09-2024 dexAMETHasone (DECADRON) 4 mg tablet Take by mouth. 10/09/2024 Active Start: 10-09-2024 take 1 mg by mouth twice daily dexamethasone 1.5 mg oral tablet mg tab(s), Oral, BID, Refills(s) 0 Start Date: 10/09/24 Status: Ordered Repeat number: 1 Start: 05-23-2025 take 1 mg by mouth twice daily dexamethasone 2 mg oral tablet mg tab(s), Oral, BID, Refills(s) 0 Start Date: 10/09/24 Status: Ordered Repeat number: 1 Start: 09-28-2024 End: 10-08-2024 take 2 tablets by mouth three times [...] Start Date: 06/30/16 Status: Ordered docusate sodium 100 mg oral capsule (1 source) Start: 11-19-2024 take 1 capsule by mouth twice daily Docusate Sodium (Colace) 100 mg capsule Active 100 MG PO Twice daily November 19, 2024 12:00am Complies with drug therapy docusate sodium 50 mg / sennosides, prison 8.6 mg oral tablet (20 sources) Start: 09-28-2024 take 2 tablets by [...] tablet (20 sources) Serotonin Reuptake Inhibitor Start: 11-17-2024 take 1 tablet by mouth once daily escitalopram 10 mg Tab = 1 tab(s), Oral, Daily, Refills(s) 0 Start Date: 11/17/24 Status: Ordered Repeat number: 1 Start: 07-07-2024 End: 08-06-2024 take 1 tablet by mouth once daily escitalopram (Lexapro) 10 MG tablet Indications: Generalized anxiety disorder with panic attacks , Moderate episode of recurrent major depressive disorder (HCC) [...] 90 tablet 1 06/05/2023 Active Estrogens, Conjugated (LONG-TERM) / medroxyPROGESTERone (1 source) Progestin, Estrogen Start: 06-30-2016 fluticasone propionate 0.05 mg/actuat metered dose nasal [...] Start: End: levETIRAcetam 500 mg oral tablet (20 sources) Start: take 1 tablet by mouth in the morning, then take 1 tablet by mouth at bedtime levETIRAcetam (KEPPRA) 500 mg tablet Take 1 tablet (500 mg total) by mouth in the morning and 1 tablet (500 mg total) before bedtime. 09/28/2024 Active Start: 09-19-2024 End: 09-27-2024 take 500 mg intravenously every twelve hours levoFLOXacin 500 mg oral tablet (13 sources) Quinolone Antimicrobial Start: 11-09-2024 take 1 tablet by mouth in the morning levoFLOXacin (LEVAQUIN) 500 mg tablet Take 1 tablet (500 mg total) by mouth in the morning. End 11/24/24. 11/09/2024 Active 50 ml magnesium sulfate 40 mg/ml injection (2 sources) Start: 09-19-2024 Start: 09-19-2024 melatonin 5 mg oral tablet (1 source) Start: 11-19-2024 take 1 tablet by mouth once daily at bedtime as needed Melatonin 5 mg tablet Active 5 MG PO Daily at bedtime as needed November 19, 2024 12:00am Complies with drug therapy 24 hr metoprolol succinate 100 mg extended release oral tablet (20 sources) beta-Adrenergic Jose Start: 11-19-2024 take 1 tablet by mouth once daily Metoprolol Succinate 100 mg tablet extended release 24 hr Active 100 MG PO Daily November 19, 2024 12:00am Complies with drug therapy Start: 09-22-2024 End: 09-24-2024 Start: 09-21-2024 End: 09-22-2024 Start: 09-01-2024 End: 09-29-2024 take 1 tablet by mouth in the morning, then take 1 tablet by mouth at bedtime metoprolol tartrate (LOPRESSOR) 25 mg tablet Take 1 tablet (25 mg total) by mouth in the morning and 1 tablet (25 mg total) before bedtime. 09/28/2024 Active Start: 09-01-2024 End: 10-01-2024 take 0.5 tablet by mouth in the morning, then take 0.5 tablet by mouth at bedtime metoprolol tartrate (LOPRESSOR) 25 mg tablet Take 0.5 tablets (12.5 mg total) by mouth in the morning and 0.5 tablets (12.5 mg total) before bedtime. Do all this for 30 days. 09/01/2024 10/01/2024 Active mirtazapine 15 mg oral tablet (20 sources) Start: 10-09-2024 take 1 tablet by mouth once daily at bedtime Mirtazapine 15 mg tablet Active 15 MG PO Daily at bedtime November 19, 2024 12:00am Complies with drug therapy Start: 09-24-2024 Start: 09-21-2024 End: 09-24-2024 Start: 08-18-2024 End: 09-17-2024 take 1 tablet by mouth at bedtime mirtazapine (Remeron) 15 MG tablet Indications: Generalized anxiety disorder with panic attacks , Major depressive disorder, recurrent, moderate (HCC) , Primary insomnia Take 1 tablet (15 [...] Oral, Daily Start Date: 06/30/16 Status: Ordered naproxen 500 mg oral tablet (20 sources) Nonsteroidal Anti-inflammatory Drug Start: 11-17-2024 take 1 tablet by mouth twice daily Naprosyn 500 mg Tab = 1 tab(s), Oral, BID, Refills(s) 0 Start Date: 11/17/24 Status: Ordered Repeat number: 1 Start: 06-30-2016 End: 06-14-2018 Naproxen 500 MG OR TABS 05/21 - 06/14/2018 Provider: Conversion Provider End: 08-18-2024 naproxen (Naprosyn) 250 MG t ablet Take by mouth 08/18/2024 Discontinued (Therapy completed) nystatin 100 unt/mg topical powder (20 sources) Polyene Antifungal Start: 08-23-2024 End: 08-23-2025 nystatin (MYCOSTATIN) powder Apply topically in the morning and before bedtime. 08/23/2024 08/23/2025 Active Start: 08-23-2024 End: 08-23-2025 nystatin (Mycostatin) 384799 UNIT/GM powder Indications: Yeast dermatitis Apply topically 2 (two) times a day 60 g 1 08/23/2024 08/23/2025 Active Start: 03-05-2024 End: 03-20-2024 nystatin (Mycostatin) 380207 UNIT/GM powder Indications: Candidiasis of skin Apply topically 2 (two) times a day for 15 days Apply to affected areas 60 g 1 03/05/2024 03/20/2024 Active End: 03-05-2024 nystatin (Mycostatin) [id number] UNIT/GM powder Apply topically 2 (two) times a day 03/05/2024 Discontinued (Reorder) 10 ml ocrelizumab 30 mg/ml injection (20 sources) Start: 09-05-2021 End: 11-19-2024 Ocrevus 300 mg/10 mL intravenous solution q6mo, Refills(s) 0 Start Date: 11/17/24 Status: Ordered Repeat number: 1 Comment on above: 10 mL. ocrelizumab (OCREVUS INTRAVENOUS) (20 sources) ocrelizumab (OCR EVUS INTRAVENOUS) Inject 600 mg intravenously once every 6 months. Active ocrelizumab (OCR EVUS INTRAVENOUS) Inject 600 mg intravenously once every 6 months. 0 Active Comment on above: Inject 600 mg intrav enously once every 6 months. ondansetron 8 mg oral tablet (5 sources) Serotonin-3 Receptor Antagonist Start: 11-20-19 take 1 tablet by mouth every eight hours as needed for nausea and vomiting ondansetron (ZOFRAN) 8 mg tablet Take 1 tablet (8 mg total) by mouth every 8 (eight) hours as needed for nausea or vomiting. 30 tablet 2 11/19/2024 Active 24 hr oxybutynin chloride 5 mg extended release oral tablet (12 sources) Cholinergic Muscarinic Antagonist Start: 08-24-19 End: 09-23-19 take 1 tablet by mouth once daily oxybutynin XL (Ditropan-XL) 5 MG 24 hr tablet Indications: Mixed stress and urge urinary incontinence Take 1 tablet (5 mg) by mouth Daily Do not crush, chew, or split. 30 tablet 1 08/23/2024 09/22/2024 Active Start: 03-07-2022 End: 07-10-2023 oxybutynin XL (DITROPAN XL) 5 mg 24 hr tablet polyethylene glycol 3350 71931 mg powder for oral solution (1 source) Osmotic Laxative Start: 09-19-2024 potassium chloride 10 meq extended release oral tablet (17 sources) Start: 11-19-2024 take 1 tablet by mouth once daily Potassium Chloride 10 mEq tablet extended release Active 10 MEQ PO Daily November 19, 2024 12:00am Complies with drug therapy Start: 11-06-2024 potassium chlo ride (KLOR-CON SPRINKLE) 10 MEQ CR capsule 11/06/2024 Active predniSONE 20 mg oral tablet (2 sources) [...] Probiotic Active Psyllium (1 source) Metamucil Active sennosides, prison 3 mg chewable tablet (1 source) Start: take 1 mg by mouth once daily senna (sennosides) 3 mg oral tablet, chewable mg tab(s), Chewed, Daily, Refills(s) 0 Start Date: 10/09/24 Status: Ordered Repeat number: 1 sulfamethoxazole 800 mg / trimethoprim 160 mg oral tablet (5 sources) Dihydrofolate Reductase Inhibitor Antibacterial, Sulfonamide Antimicrobial Start: End: sulfamethoxazole-tr imethoprim (BACTRIM DS) 800-160 mg per tablet Indications: GBM (glioblastoma multiforme) ([facility]) Take 1 tab daily, on Saturday and every week. 60 tablet 1 11/19/2024 11/19/2025 Active temozolomide 180 mg oral capsule (6 sources) Alkylating Drug Start: take 1 capsule by mouth once daily temozolomide (TEMODAR) 180 MG chemo capsule Indications: GBM (glioblastoma multiforme) ([facility]) Take 1 capsule by mouth daily 42 capsule 11/13/2024 Active traZODone hydrochloride 50 mg oral tablet (20 sources) Serotonin Reuptake Inhibitor Start: Trazodone 50 mg tablet Active 25 MG PO Daily at bedtime as needed November 19, 2024 12:00am Complies with drug therapy Start: 02-05-2024 traZODone (NATHALIE YREL) 50 mg tablet Take 0.5 tablets (25 mg total) by mouth. 02/05/2024 Active Start: 02-05-2024 take 1 tablet by katharina once daily at bedtime as needed for [...] 06-14-2018 End: 06-14-2018 TRAZODONE 50 mg [facility] 019 - 06/14/2018 Provider: Start: 05-30-2017 End: 05-30-2017 TRAZODONE 50 mg [facility] 018 - 05/30/2017 Provider: vitamin B12 (12 [...] on above: Take 1,000 mcg by [facility] once daily. Vitamin D (2 sources) Start: 06-30-2016 Vitamin D 1,200 International_Unit, Oral, Daily, Prophylaxis Start Date: 06/30/16 Status: Ordered Start: 06-30-2016 Vitamin D 1,20 0 International_Unit, Oral, Daily Start Date: 06/30/16 Status: Ordered zinc oxide 0.2 mg/mg topical ointment (1 source) Start: 11-19-2024 Zinc Oxide (En dit (Zinc Oxide)) 20 % ointment Active 1 APPLIC TOPICAL Four times daily as needed November 19, 2024 12:00am Complies with drug therapy (8 sources) Start: 09-28-2024 Start: 09-28-2024 End: [...] Drug Class(es) Dates Sig (Normalized) Sig (Original) albuterol-budesonid e 90-80 mcg/actuation HFA aerosol inhaler (14 sources) End: 11-19-2024 albuterol-budesonide 90-80 mcg/actuation HFA aerosol inhaler Albuterol 11/19/2024 Discontinued albuterol-budeso nide 90-80 mcg/actuation HFA aerosol inhaler Albuterol Active amitriptyline hydrochloride 25 mg oral tablet (20 sources) Tricyclic Antidepressant Start: 09-05-2021 End: 11-19-2024 take 1 tablet by mouth at bedtime Amitriptyline 25 mg tablet Discontinued 25 MG PO Bedtime September 05, 2021 12:00am November 19, 2024 3:15pm Start: 07-15-2020 amitriptyline (ELAVIL) 50 mg tablet Take 25-50 mg qhs 07/15/2020 Active take 1 tablet by katharina th every twelve hours Amitriptyline HCl 10 MG 1 tablet Orally twice a day Active Amitriptyline HC l Active Comment on above: Take 25-50 mg qhs aspirin 81 mg delayed release oral tablet (9 sources) Platelet Aggregation Inhibitor, Nonsteroidal Anti-inflammatory Drug Start: 07-15-19 End: 03-16-20 22 take 1 tablet by mouth once daily aspirin, enteric coated (ADULT LOW DOSE ASPIRIN) 81 mg EC tablet Take 1 tablet by mouth once daily. 30 tablet 5 07/15/2020 03/16/2022 Discontinued Comment on above: Take 1 tablet by katharina th once daily. atorvastatin 40 mg oral tablet (20 sources) HMG-CoA Reductase Inhibitor Start: 11-02-19 End: 11-20-19 take 1 tablet by mouth at bedtime Atorvastatin 40 mg tablet Discontinued 40 MG PO Bedtime September 05, 2021 12:00am November 19, 2024 3:15pm Atorvastatin Jadon cium Active Comment on above: [...] on 04/27/24 at 0943, For 1 dose 50 ml clevidipine 0.5 mg/ml injection (1 source) Dihydropyridine Calcium Channel Jose Start: 09-23-2024 End: 09-23-2024 cyclobenzaprine (3 sources) Muscle Relaxant Start: 06-14-2018 End: 06-14-2018 CYCLOBENZAPRINE 10 MG [facility] 06/14/2018 - 06/14/2018 Provider: Start: 05-30-2017 End: 05-30-2017 CYCLOBENZAPRINE 10 MG MISC 0 05/30/2017 - 05/30/2017 Provider: Start: 06-30-2016 take 2 tablets by mo [facility] twice daily as needed for muscle [...] (1 source) Histamine-2 Receptor Antagonist Start: 09-20-19 End: 09-24-19 FLUoxetine 20 mg oral capsule (15 sources) Serotonin Reuptake Inhibitor Start: 09-06-19 End: 11-20-19 take 1 capsule by mouth once daily Fluoxetine 20 mg capsule Discontinued 20 MG PO Daily September 05, 2021 12:00am November 19, 2024 3:15pm Comment on above: Daily 1 ml heparin sodium, porcine 5000 unt/ml injection (1 source) Unfractionated Heparin, Anti-coagulant Start: 09-21-19 End: 09-23-19 lisinopril 10 mg oral tablet (20 sources) Angiotensin Converting Enzyme Inhibitor Start: 11-02-19 End: 11-20-19 take 1 tablet by mouth once daily Lisinopril 10 mg tablet Discontinued 10 MG PO Daily September 05, 2021 12:00am November 19, 2024 3:15pm Lisinopril Activ e Comment on above: Take [...] Take 15 mg by mouth every morning. 50 ml sodium bicarbonate 84 mg/ml prefilled syringe (1 source) Start: End: 1000 ml sodium chloride 9 mg/ml injection (2 sources) Start: End: Start: 09-19-2024 End: 09-20-2024 teriflunomide 14 mg [...] te Episodic/Chronic Acute and unspecified renal failure (4 sources) Acute renal failure syndrome; Translations: [Acute kidney failure, unspecified] Onset: 09-18-2024 09-19-2024 Episodic Acute cerebrovascular disease (20 sources) Cerebrovascular accident; Translations: [Cerebral infarction, unspecified] Onset: 07-30-2023 07-30-2023 Chronic Adjustment disorders (20 sources) Adjustment disorder with mixed anxiety and depressed mood; Translations: [Adjustment disorder with mixed anxiety and depressed mood] Onset: 10-02-2012 10-02-2012 Chronic Administrative/social admission (19 sources) Finding of activity of daily living; [...] unspecified] Onset: 04-30-2023 Resolved: 05-18-2024 04-30-2023 Chronic Blindness and vision defects (6 sources) Diplopia; Translations: [Diplopia] Onset: 11-10-2024 11-10-2024 Episodic Cancer of brain and nervous system (18 sources) Glioblastoma multiforme ; Translations: [Malignant neoplasm of brain, unspecified] Onset: 11-12-2024 11-12-2024 Chronic Cardiac dysrhythmias (2 sources) Cardiac arrhythmia, [...] [Unspecified urinary incontinence] Onset: 10-10-2023 10-10-2023 Chronic Genitourinary symptoms and ill-defined conditions (20 sources) Polyuria; Translations: [Polyuria] Onset: 01-06-2024 01-06-2024 Episodic Hemorrhoids (3 sources) Hemorrhoids; Translations: [Unspecified hemorrhoids] Onset: 07-27-2022 Resolved: 12-13-2021 Episodic Joint disorders and dislocations; trauma-related (19 sources) Traumatic rupture of lumbar intervertebral disc; Translations: [Traumatic rupture of lumbar intervertebral disc, initial encounter] Onset: 09-01-2024 09-16-2024 Episodic Malaise and fatigue (20 sources) Weakness; Translations: [Asthenia] Onset: 08-28-2024 08-28-2024 [...] nail] Onset: 03-05-2024 Resolved: 07-02-2024 03-05-2024 Episodic Neoplasms of unspecified nature or uncertain behavior (6 sources) Neoplasm of brain; Translations: [Neoplasm of unspecified behavior of brain] Onset: 11-10-2024 11-10-2024 Chronic Noninfectious gastroenteritis (1 source) Noninfective gastroenteritis and colitis, unspecified; Translations: [NONINFECTIVE GE AND COLITIS UNS] Onset: 09-27-2022 Episodic Nutritional deficiencies (20 sources) Vitamin D deficiency; Translations: [Vitamin D deficiency, unspecified] Onset: 01-06-2024 11-27-2023 Chronic Nutritional deficiencies (19 sources) Nutritional deficiency state; Translations: [Nutritional deficiency, [...] Onset: 08-28-2024 Episodic Other connective tissue disease (19 sources) Non-traumatic rhabdomyolysis; Translations: [Rhabdomyolysis] Onset: 08-28-2024 08-28-2024 Episodic Other connective tissue disease (19 sources) Muscle weakness; Translations: [Muscle weakness (generalized)] Onset: 09-02-2024 09-16-2024 Episodic Other connective tissue disease (19 sources) Rhabdomyolysis; Translations: [Rhabdomyolysis] Onset: 09-01-2024 09-16-2024 [...] system and abdomen] Episodic Other gastrointestinal disorders (20 sources) Oropharyngeal dysphagia; Translations: [Dysphagia, oropharyngeal phase] Onset: 09-01-2024 09-16-2024 Episodic Other nervous system disorders (20 sources) Carpal tunnel syndrome; Translations: [Carpal tunnel syndrome, unspecified upper limb] Onset: 05-20-2002 07-30-2023 Chronic Other nervous system disorders (20 sources) 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; Translations: [Lesion of ulnar nerve, bilateral upper limbs] Onset: 01-23-2024 01-23-2024 Chronic Other nervous system disorders (19 sources) Cognitive deficit in communication skills; Translations: [Cognitive communication deficit] Onset: 09-01-2024 09-16-2024 Chronic Other nervous system disorders (19 sources) Difficulty walking; Translations: [Difficulty in walking, [...] nutritional; endocrine; and metabolic disorders (12 sources) Body mass index 40+ - severely obese; Translations: [Body mass index (BMI) 45.0-49.9, adult] Onset: 06-25-2024 06-25-2024 Chronic Other nutritional; endocrine; and metabolic disorders (14 sources) Obesity caused by energy imbalance; Translations: [Morbid (severe) obesity due to excess calories] Onset: 06-25-2024 06-25-2024 Chronic Residual codes; unclassified (20 sources) Obstructive sleep apnea syndrome; Translations: [Obstructive sleep apnea (adult) (pediatric)] Onset: 07-30-2023 07-30-2023 Chronic Residual codes; unclassified (20 sources) Menopause present; Translations: [Asymptomatic menopausal state] Onset: 03-05-2024 06-30-2016 Episodic Residual codes; unclassified (13 sources) History of arthroscopic procedure on shoulder; Translations: [Other specified postprocedural states] 02-24-2024 Episodic Residual codes; unclassified (20 sources) Altered mental status; Translations: [Altered mental status, unspecified] Onset: 09-18-2024 09-29-2024 Episodic Residual codes; unclassified (2 sources) History of craniotomy; Translations: [Other specified postprocedural states] 09-29-2024 Episodic Residual codes; unclassified (1 source) Altered mental status, unspecified; Translations: [Altered mental status, unspecified] Onset: 09-19-2024 Episodic Residual codes; unclassified (1 source) Other specified postprocedural states; Translations: [Other specified postprocedural states] Onset: 09-18-2024 Episodic Residual codes; unclassified (1 source) Pain, unspecified; Translations: [Pain, unspecified] Onset: 09-19-2024 Episodic Substance-related disorders (4 sources) Nicotine dependence, unspecified, uncomplicated; Translations: [Smoker] Onset: 12-26-2016 06-30-2016 Chronic Comment on above: Added secondary to d ocumentation in Social History. Transient cerebral ischemia (2 sources) Transient cerebral ischemia 02-05-2024 Chronic Comment on above: patient states she h ad a moment where she couldn't get words out and did not go to hospital but realized after that is what happened -- august 2020 Unclassified (1 source) Weakness - Generalized Onset: 08-28-2024 Unclassified (1 source) EMS Onset: 08-28-2024 Unclassified (1 source) Evaluation of Abnormal Diagnostic Test Onset: 09-18-2024 Unclassified (1 source) 52 female Onset: 09-18-2024 Unclassified (1 source) New Patient Onset: 11-12-2024 Unclassified (1 source) Wound Check Onset: 09-16-2024 Urinary tract infections (2 sources) Urinary tract infectious disease; Translations: [Urinary tract infection, site not specified] Onset: 11-24-2024 Episodic Past or Other Problems Problem Classification Problem Date Documented Da te Episodic/Chronic Acquired foot deformities (20 sources) Acquired hallux valgus; Translations: [Hallux valgus (acquired), unspecified foot] Onset: 04-26-2023 Resolved: 06-26-2023 04-26-2023 Chronic Immunizations and screening for infectious disease (20 [...] 06-26-2023 Episodic Residual codes; unclassified (20 sources) Flushing; Translations: [Flushing] Onset: 07-30-2023 07-30-2023 Episodic Skin and subcutaneous tissue infections (20 sources) Abscess; Translations: [Cutaneous abscess, unspecified] Onset: 01-06-2024 Resolved: 02-03-2024 02-03-2024 Episodic Spondylosis; intervertebral disc disorders; other back problems (20 sources) Cervical radiculopathy; Translations: [Radiculopathy, cervical region] Onset: 03-19-2015 06-26-2023 Episodic Results Test Name Value Interpretation Reference Range Facility Ambulatory Visit Summaryon 0 11-24-2024 Ambulatory Visit Summary Ambulatory Visi t Summary ANUPAMA VASQUEZ :1970 Visit Date:11/24/2024 Ambulatory Visit Instructions Your Diagnosis Urinary retention UTI (urinary tract infection) Your Care Team Attending Physician - REGINA [...] signed up for this yet, please contact [employer] at [phone] to get signed up today. Language Information Language assistance services are available as needed. Normal [facility] Urology Office/Clinic Noteon 11-24-2024 Urology Office/Clinic Note Urology Office/Clinic Note Chief Complaint 6 wk [...] (R33.9: Retention of urine, unspecified) 10/09/24: Hx MS. Transferred from [facility] to [facility] on 09/18/24 d/t BRANDON, brain mass w shift and AMS. 1.5L retention upon admission w BRANDON ([employer] 15.68) bilat hydro on US, improved to [...] CT 09/20/24. Denies hx kidney stones. Maintain Alexis. ECF to replace in 4 wks. F/u 6 wks. If mobility improved, good po intake, normal BMs can consider another void trial at that time. SINCE LAST OV: Admitted at [facility] 10/17-10/22 w Sepsis, NSTEMI, Heart Failure. Urine Cx showed Proteus. Alexis was dc'd on day of discharge (unclear why). Treated for another UTI 11/10 (Levaquin). Per heme/onc note (Guillermo Mendoza) pt starting chemo/radiation with palliative goals. Started pt on daily Bactrim #60. Seeing nephrology d/t acute on CKD. 11/07 [employer] 3.05 TODAY: PVR 927ml. Pt does not have sensation of incomplete emptying. Comfortable. Voiding, mostly in brief. Advised we need to replace Alexis vs start CIC. Pt prefers indwelling Alexis. Order written for ECF to replace upon return to facility today and maintain w Q4wk changes. Ordered: [id number] Pain severity quantified; no pain present 81270 Measure Post Void residual urine and/or bladder capacity by US- non-imaging Current tobacco non-user 1036F Functional status assessed [...] abx currently. Follow-up With When Contact Information REGINA MATTHEWS PA-C, URL In 3 months [address] [place] [address] Additional Instructions: Patient Education Acute Urinary Retention, Female, [id number] Problem List/Past Medical History Ongoing Bipolar I [...] Never Smokeless Tobacco Use:. Cigarettes, Yes, 11/24/2024 Normal [facility] Comment on above: Result Comment: Elec tronically Signed By: REGINA MATTHEWS PA-C\.kimberly\Date and Time Signed: 11/24/24 09:07 EDT MR BRAIN W WO CONTon 06-27-2 025 MR BRAIN W WO CONT MR BRAIN W WO CONT EXAM: MR BRAIN W WO CONT TECHNIQUE: Multiplanar multisequence MR imaging of the brain was performed prior to and following the uneventful administration of intravenous contrast. CLINICAL HISTORY: Treatment planning. Glioblastoma. COMPARISON: 09/19/2024 FINDINGS: There are postsurgical changes compatible with interval right-sided craniotomy and resection of a previously seen complex right temporal lobe mass, compatible with high-grade STUDY LEAD glioma. There is expected post surgical distortion [...] right temporal lobe mass, compatible with high-grade STUDY LEAD glioma. Expected postsurgical distortion is noted, as [...] Sebastian Grayson MD on 11/13/2024 11:34 AM Normal [facility] ALL BASIC METABOLIC PANELon 11-07-2024 Anion gap [Moles/Vol] 11.9 mmol/L [facility] Calcium [Mass/Vol] 8.5 mg/dL 8.5 - 10. 1 mg/dL [facility] Chloride [Moles/Vol] 108 mmol/L High 98 - 10 7 mmol/L [facility] CO2 [Moles/Vol] 32.8 mmol/L High 21.0 - 32.0 mmol/L [facility] Creatinine [Mass/Vol] 3.05 mg/dL High 0.55 - 1.02 mg/dL [facility] GFR/1.73 sq M.predicted CKD-EPI (S/P/Bld) [Vol rate/Area] 19 Low >=60 mL/min/1.7 3m 2 [facility] Glucose [Mass/Vol] 99 mg/dL 74 - 106 mg/dL [facility] Interpretation and review of laboratory results Abnormal [facility] Potassium [Moles/Vol] 3.7 mmol/L 3.5 - 5.1 mmol/L [facility] Sodium [Moles/Vol] 149 mmol/L High 136 - 145 mmol/L [facility] TBH EGFR-NON AF BOTSWANAN 16 Low >=6 0 mL/min/1.7 3m 2 [facility] Urea nitrogen [Mass/Vol] 36 mg/dL High 7.0 - 18.0 mg/dL [facility] Urea nitrogen/Creatinine [Mass ratio] 11.8 mg/mg [facility]2024 Bacteria identified Cx Nom (U) ORGANISM: Proteus mirabilis (O:PROMIR) [place] Count >100,000 Aerobic ROSE Charge ([id number]) ---- [...] RESISTANT TO ALL B-LACTAM DRUGS. PERFORMED BY: [place] [address] PATHOLOGIST TEACHING FELLOW ADILENE GAMINO M.D. Normal [facility] Comment on above: Performed By: #### C UU #### [address] Urine cultureOrdered By: Michelle Holguin on 10-17-2024 Bacteria identified Cx Nom (U) Proteus mirabilis Abnormal [facility] Ambulatory Visit Summaryon 0 10-09-2024 Ambulatory Visit Summary Ambulatory Visi t Summary RADHA VASQUEZLEY Ayleen :1970 Visit Date:10/09/2024 Ambulatory Visit Instructions Your Diagnosis Urinary retention Your Care Team Attending Physician - BYRON FIGUEROA, REGINA Pedraza Primary Care Physician - DIXIE BENITEZ, SARY [...] choosing us for your care. Normal [facility] BASIC METABOLIC PANELon 05- Anion gap [Moles/Vol] 11 mmol/L Normal 5-15 [facility] Comment on above: Performed By: #### P INR #### [facility] ([facility]) [address] [place] [address] VIR Calcium [Mass/Vol] 8.8 mg/dL Normal 8.5-10.[address] [facility] Comment on above: Performed By: #### P INR #### [facility] ([facility]) [address] [place] [address] VIR Chloride [Moles/Vol] 106 mmol/L Normal 98-109 [facility] Comment on above: Performed By: #### P INR #### [facility] ([facility]) [address] [place] [address] VIR CO2 [Moles/Vol] 23 mmol/L Normal 22-32 [facility] Comment on above: Performed By: #### P INR #### [facility] ([facility]) [address] [place] [address] VIR Creatinine [Mass/Vol] 0.74 mg/dL Normal 0.40-1.00 [facility] Comment on above: Result Comment: METH OD TRACEABLE TO IDMS STANDARD Performed By: #### P INR #### [facility] ([facility]) [address] [place] [address] VIR EGFR (CKD-EPI) NON-RACE DEPENDENT >^90 Normal >=60 [facility] Comment on above: Result Comment: Repo rted eGFR is based on the CKD-EPI 2020 equation that does not use a race coefficient. Performed By: #### P INR #### [facility] ([facility]) [address] [place] [address] VIR Glucose [Mass/Vol] 94 mg/dL Normal 65-[address] [facility] Comment on above: Performed By: #### P INR #### [facility] ([facility]) [address] [place] [address] VIR Potassium [Moles/Vol] 4.4 mmol/L Normal 3.5-5.0 [facility] Comment on above: Performed By: #### P INR #### [facility] ([facility]) [address] [place] [address] VIR Sodium [Moles/Vol] 140 mmol/L Normal 134-[address] [facility] Comment on above: Performed By: #### P INR #### [facility] ([facility]) [address] [place] [address] VIR Urea nitrogen [Mass/Vol] 26 mg/dL High 5-23 [facility] Comment on above: Performed By: #### P INR #### [facility] ([facility]) [address] [place] [address] VIR Basic Metabolic Panelon 05 Anion gap [Moles/Vol] 11 mmol/L 5 - 15 mmol/L [facility] Calcium [Mass/Vol] 8.8 mg/dL 8.5 - 10. 5 mg/dL [facility] Chloride [Moles/Vol] 106 mmol/L 98 - 10 9 mmol/L [facility] CO2 [Moles/Vol] 23 mmol/L 22 - 32 mmol/L [facility] Creatinine [Mass/Vol] 0.74 mg/dL 0.40 - 1.00 mg/dL [facility] EGFR Non-Race Dependent - PINF P [facility] Glucose [Mass/Vol] 94 mg/dL 65 - 99 mg/dL [facility] Interpretation and review of laboratory results Abnormal [facility] Potassium [Moles/Vol] 4.4 mmol/L 3.5 - 5.0 mmol/L [facility] Sodium [Moles/Vol] 140 mmol/L 134 - 146 mmol/L [facility] Urea nitrogen [Mass/Vol] 26 mg/dL High 5 - 23 mg/dL [facility] CBC WITH AUTO DIFFERENTIALon 09-28-2024 BASOPHILS ABSOLUTE COUNT (10*3/UL) BY AUTOMATED COUNT 0.0 10*3/uL Normal 0.0-0.2 [facility] Comment on above: Result Comment: This is an appended report. These results have been appended to a previously preliminary verified report. Performed By: #### P INR #### [facility] ([facility]) [address] [place] [address] VIR BASOPHILS RELATIVE PERCENT BY AUTOMATED COUNT 0.1 % Normal [facility] Comment on above: Result Comment: This is an appended report. These results have been appended to a previously preliminary verified report. Performed By: #### P INR #### [facility] ([facility]) [address] [place] [address] VIR CELLAVISION DIFFERENTIAL TYPE AUTOMATED DIFFERENTIAL Normal [facility] Comment on above: Result Comment: This is an appended report. These results have been appended to a previously preliminary verified report. Performed By: #### P INR #### [facility] ([facility]) [address] [place] [address] VIR Eosinophils (Bld) [#/Vol] 0.0 10*3/uL Normal 0.0-0.4 [facility] Comment on above: Result Comment: This is an appended report. These results have been appended to a previously preliminary verified report. Performed By: #### P INR #### [facility] ([facility]) [address] [place] [address] VIR EOSINOPHILS RELATIVE PERCENT BY AUTOMATED COUNT 0.1 % Normal [facility] Comment on above: Result Comment: This is an appended report. These results have been appended to a previously preliminary verified report. Performed By: #### P INR #### [facility] ([facility]) [address] [place] [address] VIR Erythrocyte distribution width (RBC) [Ratio] 16.4 % High 11.5-15 [facility] Comment on above: Performed By: #### P INR #### [facility] ([facility]) [address] [facility] [address] [place] [address] VIR Hematocrit (Bld) [Volume fraction] 35.5 % Normal 35-47 [facility] Comment on above: Performed By: #### P INR #### [facility] ([facility]) [address] [address] VIR Hemoglobin (Bld) [Mass/Vol] 11.5 g/dL Low 11.7-15.5 [facility] Comment on above: Performed By: #### P INR #### [facility] ([facility]) [address] [address] VIR LYMPHOCYTES ABSOLUTE COUNT (10*3/UL) BY AUTOMATED COUNT 1.3 10*3/uL Normal 1.0-3.5 [facility] Comment on above: Result Comment: This is an appended report. These results have been appended to a previously preliminary verified report. Performed By: #### P INR #### [facility] ([facility]) [address] [address] VIR LYMPHOCYTES RELATIVE PERCENT BY AUTOMATED COUNT 8.3 % Normal [facility] Comment on above: Result Comment: This is an appended report. These results have been appended to a previously preliminary verified report. Performed By: #### P INR #### [facility] ([facility]) [address] [address] VIR MCH (RBC) [Entitic mass] 27.0 pg Normal 27-34 [facility] Comment on above: Performed By: #### P INR #### [facility] ([facility]) [address] [address] VIR MCHC (RBC) [Mass/Vol] 32.5 g/dL Normal 32-36 [facility] Comment on above: Performed By: #### P INR #### [facility] ([facility]) [address] [place] [address] VIR MCV (RBC) [Entitic vol] 83 fL Normal 80-100 [facility] Comment on above: Performed By: #### P INR #### [facility] ([facility]) [address] [place] [address] VIR MONOCYTES ABSOLUTE COUNT (10*3/UL) BY AUTOMATED COUNT 1.8 10*3/uL High 0.0-0.9 [facility] Comment on above: Result Comment: This is an appended report. These results have been appended to a previously preliminary verified report. Performed By: #### P INR #### [facility] ([facility]) [address] [place] [address] VIR MONOCYTES RELATIVE PERCENT BY AUTOMATED COUNT 11.3 % Normal [facility] Comment on above: Result Comment: This is an appended report. These results have been appended to a previously preliminary verified report. Performed By: #### P INR #### [facility] ([facility]) [address] [place] [address] VIR NEUTROPHILS ABSOLUTE COUNT BY AUTOMATED COUNT 12.4 10*3/uL High 1.5-6.6 [facility] Comment on above: Result Comment: This is an appended report. These results have been appended to a previously preliminary verified report. Performed By: #### P INR #### [facility] ([facility]) [address] [place] [address] VIR NEUTROPHILS RELATIVE PERCENT BY AUTOMATED COUNT 80.2 % Normal [facility] Comment on above: Result Comment: This is an appended report. These results have been appended to a previously preliminary verified report. Performed By: #### P INR #### [facility] ([facility]) [address] [place] [address] VIR Platelet mean volume (Bld) [Entitic vol] 10.7 fL Normal 7-12 [facility] Comment on above: Performed By: #### P INR #### [facility] ([facility]) [address] [place] [address] VIR Platelets (Bld) [#/Vol] 115 10*3/uL Low 150-450 [facility] Comment on above: Performed By: #### P INR #### [facility] ([facility]) [address] [place] [address] VIR RBC COUNT 4.27 X10E12/L Normal 3.8-5.2 [facility] Comment on above: Performed By: #### P INR #### [facility] ([facility]) [address] [place] [address] VIR WBC (Bld) [#/Vol] 15.5 10*3/uL High 4-[address] [facility] Comment on above: Performed By: #### P INR #### [facility] ([facility]) [address] [place] [address] VIR CBC auto differentialon 09-17 Basophils (Bld) [#/Vol] 0 10*3/uL 0.0 - 0.2 10*3/uL [facility] Basophils/100 WBC (Bld) 0.1 % [facility] Differential cell count method Nom (Bld) AUTOMATED DIFFERENTIAL [facility] Eosinophils (Bld) [#/Vol] 0 10*3/uL 0.0 - 0.4 10*3/uL [facility] Eosinophils/100 WBC (Bld) 0.1 % [facility] Erythrocyte distribution width (RBC) [Ratio] 16.4 % High 11.5 - 15 % [facility] Hematocrit (Bld) [Volume fraction] 35.5 % 35 - 47 % [facility] Hemoglobin (Bld) [Mass/Vol] 11.5 g/dL Low 11.7 - 15.5 g/dL [facility] Interpretation and review of laboratory results Abnormal [facility] Lymphocytes (Bld) [#/Vol] 1.3 10*3/uL 1.0 - 3.5 10*3/uL [facility] Lymphocytes/100 WBC (Bld) 8.3 % [facility] MCH (RBC) [Entitic mass] 27 pg 27 - 34 pg [facility] MCHC (RBC) [Mass/Vol] 32.5 g/dL 32 - 3 6 g/dL [facility] MCV (RBC) [Entitic vol] 83 fL 80 - 100 fL [facility] Monocytes (Bld) [#/Vol] 1.8 10*3/uL High 0.0 - 0.9 10*3/uL [facility] Monocytes/100 WBC (Bld) 11.3 % P [facility] Neutrophils (Bld) [#/Vol] 12.4 10*3/uL High 1.5 - 6.6 10*3/uL [facility] Neutrophils/100 WBC (Bld) 80.2 % [facility] Platelet mean volume (Bld) [Entitic vol] 10.7 fL 7 - 12 fL [facility] Platelets (Bld) [#/Vol] 115 10*3/uL Low [facility] RBC (Bld) [#/Vol] 4.27 10*6/uL [facility] WBC LM Ql (Sput) 15.5 High [facility] [place] SWALLOW MOTILITY FUNCTION on 09-28-2024 [...] Jayla Arroyo MD on 09/28/2024 3:08 PM [facility] IONIZED CALCIUMon 09-28-2024 IONIZED CALCIUM - ICAN 4.3 mg/dL Low 4.5-5.3 [facility] Comment on above: Performed By: #### P INR #### [facility] ([facility]) [address] [place] [address] VIR Ionized calciumon 09-28-2024 Calcium.ionized ISE [Moles/Vol] 4.3 mg/dL Low 4.5 - 5.3 mg/dL [facility] Interpretation and review of laboratory results Abnormal [facility] MAGNESIUMon 09-28-2024 Magnesium [Mass/Vol] 1.8 mg/dL Normal 1.8-2.6 [facility] Comment on above: Performed By: #### P INR #### [facility] ([facility]) [address] [place] [address] VIR Magnesiumon 09-28-2024 Magnesium [Mass/Vol] 1.8 mg/dL 1.8 - 2 .6 mg/dL [facility] No Panel Informationon 09-28 Interpretation and review of laboratory results Normal [facility] PHOSPHORUSon 09-28-2024 Phosphate [Mass/Vol] 2.6 mg/dL Normal 2.4-4.9 [facility] Comment on above: Performed By: #### P INR #### [facility] ([facility]) [address] [place] [address] VIR Phosphoruson 09-28-2024 Phosphate [Mass/Vol] 2.6 mg/dL 2.4 - 4 .9 mg/dL [facility] RF videography Hypopharynx a nd Esophagus Viewson 09-28-2024 SECTRAPACS [facility] Radiology Study observation (narrative) [facility] Rehabilitation RF videography Hypopharynx a nd Esophagus ViewsOrdered By: Jayla Arroyo on 09-28-2024 [facility] Work Phone: BASIC METABOLIC PANELon 09-17 Anion gap [Moles/Vol] 10 mmol/L Normal 5-15 [facility] [place] Comment on above: Performed By: #### P INR #### [facility] ([facility]) [address] [place] [address] VIR Calcium [Mass/Vol] 9.0 mg/dL Normal 8.5-10.[address] [facility] Comment on above: Performed By: #### P INR #### [facility] ([facility]) [address] [place] [address] VIR Chloride [Moles/Vol] 109 mmol/L Normal 98-109 [facility] Comment on above: Performed By: #### P INR #### [facility] ([facility]) [address] [place] [address] VIR CO2 [Moles/Vol] 25 mmol/L Normal 22-32 [facility] Comment on above: Performed By: #### P INR #### [facility] ([facility]) [address] [place] [address] VIR Creatinine [Mass/Vol] 0.74 mg/dL Normal 0.40-1.00 [facility] Comment on above: Result Comment: METH OD TRACEABLE TO IDMS STANDARD Performed By: #### P INR #### [facility] ([facility]) [address] [place] [address] VIR EGFR (CKD-EPI) NON-RACE DEPENDENT >^90 Normal >=60 [facility] Comment on above: Result Comment: Repo rted eGFR is based on the CKD-EPI 2020 equation that does not use a race coefficient. Performed By: #### P INR #### [facility] ([facility]) [address] [place] [address] VIR Glucose [Mass/Vol] 101 mg/dL High 65-[address] [facility] Comment on above: Performed By: #### P INR #### [facility] ([facility]) [address] [place] [address] VIR Potassium [Moles/Vol] 4.6 mmol/L Normal 3.5-5.0 [facility] Comment on above: Performed By: #### P INR #### [facility] ([facility]) [address] [place] [address] VIR Sodium [Moles/Vol] 144 mmol/L Normal 134-[address] [facility] Comment on above: Performed By: #### P INR #### [facility] ([facility]) [address] [place] [address] VIR Urea nitrogen [Mass/Vol] 27 mg/dL High 5-23 [facility] Comment on above: Performed By: #### P INR #### [facility] ([facility]) [address] [place] [address] VIR Basic Metabolic Panelon 09-17 Anion gap [Moles/Vol] 10 mmol/L 5 - 15 mmol/L [facility] Calcium [Mass/Vol] 9 mg/dL 8.5 - 10. 5 mg/dL [facility] Chloride [Moles/Vol] 109 mmol/L 98 - 10 9 mmol/L [facility] CO2 [Moles/Vol] 25 mmol/L 22 - 32 mmol/L [facility] Creatinine [Mass/Vol] 0.74 mg/dL 0.40 - 1.00 mg/dL [facility] EGFR Non-Race Dependent - PINF P [facility] Glucose [Mass/Vol] 101 mg/dL High 65 - 99 mg/dL [facility] Interpretation and review of laboratory results Abnormal [facility] Potassium [Moles/Vol] 4.6 mmol/L 3.5 - 5.0 mmol/L [facility] Sodium [Moles/Vol] 144 mmol/L 134 - 146 mmol/L [facility] Urea nitrogen [Mass/Vol] 27 mg/dL High 5 - 23 mg/dL [facility] CBC WITH AUTO DIFFERENTIALon 09-27-2024 CELLAVISION DIFFERENTIAL TYPE CELLAVISION DIFFERENTIAL Normal [facility] Comment on above: Result Comment: This is an appended report. These results have been appended to a previously preliminary verified report. Performed By: #### U LUDMILA #### [facility] ([facility]) [address] [place] [address] VIR CELLAVISION LYMPHOCYTES ABSOLUTE COUNT (10*3/UL) BY MANUAL COUNT 0.8 10*3/uL Low 1.0-3.5 [facility] Comment on above: Result Comment: This is an appended report. These results have been appended to a previously preliminary verified report. Performed By: #### U LUDMILA #### [facility] ([facility]) [address] [place] [address] VIR CELLAVISION LYMPHOCYTES RELATIVE PERCENT BY MANUAL COUNT 5 % Normal [facility] Comment on above: Result Comment: This is an appended report. These results have been appended to a previously preliminary verified report. Performed By: #### U LUDMILA #### [facility] ([facility]) [address] [place] [address] VIR CELLAVISION MONOCYTES ABSOLUTE COUNT (10*3/UL) IN BLOOD BY MANUAL COUNT 2.2 10*3/uL High 0.0-0.9 [facility] Comment on above: Result Comment: This is an appended report. These results have been appended to a previously preliminary verified report. Performed By: #### U LUDMILA #### [facility] ([facility]) [address] [place] [address] VIR CELLAVISION MONOCYTES RELATIVE PERCENT BY MANUAL COUNT 13 % Normal [facility] Comment on above: Result Comment: This is an appended report. These results have been appended to a previously preliminary verified report. Performed By: #### U LUDMILA #### [facility] ([facility]) [address] [place] [address] VIR CELLAVISION MYELOCYTE RELATIVE PERCENT BY MANUAL COUNT 1 % Normal [facility] Comment on above: Result Comment: This is an appended report. These results have been appended to a previously preliminary verified report. Performed By: #### U LUDMILA #### [facility] ([facility]) [address] [place] [address] VIR CELLAVISION NEUTROPHILS ABSOLUTE COUNT BY MANUAL COUNT 14.0 10*3/uL High 1.5-6.6 [facility] Comment on above: Result Comment: This is an appended report. These results have been appended to a previously preliminary verified report. Performed By: #### U LUDMILA #### [facility] ([facility]) [address] [place] [address] VIR CELLAVISION NEUTROPHILS RELATIVE PERCENT BY MANUAL COUNT 82 % Normal [facility] Comment on above: Result Comment: This is an appended report. These results have been appended to a previously preliminary verified report. Performed By: #### U LUDMILA #### [facility] ([facility]) [address] [place] [address] VIR Erythrocyte distribution width (RBC) [Ratio] 16.6 % High 11.5-15 [facility] Comment on above: Performed By: #### U LUDMILA #### [facility] ([facility]) [address] [place] [address] VIR Hematocrit (Bld) [Volume fraction] 34.3 % Low 35-47 [facility] Comment on above: Performed By: #### U LUDMILA #### [facility] ([facility]) [address] [place] [address] VIR Hemoglobin (Bld) [Mass/Vol] 11.3 g/dL Low 11.7-15.5 [facility] Comment on above: Performed By: #### U LUDMILA #### [facility] ([facility]) [address] [place] [address] VIR MCH (RBC) [Entitic mass] 27.3 pg Normal 27-34 [facility] Comment on above: Performed By: #### U LUDMILA #### [facility] ([facility]) [address] [place] [address] VIR MCHC (RBC) [Mass/Vol] 33.0 g/dL Normal 32-36 [facility] Comment on above: Performed By: #### U LUDMILA #### [facility] ([facility]) [address] [place] [address] VIR MCV (RBC) [Entitic vol] 83 fL Normal 80-100 [facility] Comment on above: Performed By: #### U LUDMILA #### [facility] ([facility]) [address] [place] [address] VIR Platelet mean volume (Bld) [Entitic vol] 11.6 fL Normal 7-12 [facility] Comment on above: Performed By: #### U LUDMILA #### [facility] ([facility]) [address] [place] [address] VIR Platelets (Bld) [#/Vol] 116 10*3/uL Low 150-450 [facility] Comment on above: Performed By: #### U LUDMILA #### [facility] ([facility]) [address] [place] [address] VIR RBC COUNT 4.14 X10E12/L Normal 3.8-5.2 [facility] Comment on above: Performed By: #### U LUDMILA #### [facility] ([facility]) [address] [place] [address] VIR WBC (Bld) [#/Vol] 17.1 10*3/uL High 4-[address] [facility] Comment on above: Performed By: #### U LUDMILA #### [facility] ([facility]) [address] [place] [address] VIR CBC auto differentialon 09-17 Differential cell count method Nom (Bld) CELLAVISION DIFFERENTIAL [facility] Erythrocyte distribution width (RBC) [Ratio] 16.6 % High 11.5 - 15 % [facility] Hematocrit (Bld) [Volume fraction] 34.3 % Low 35 - 47 % [facility] Hemoglobin (Bld) [Mass/Vol] 11.3 g/dL Low 11.7 - 15.5 g/dL [facility] Interpretation and review of laboratory results Abnormal [facility] Lymphocytes (Bld) [#/Vol] 0.8 10*3/uL [...] System Monocytes/100 WBC (Bld) 13 % P [facility] Myelocytes/100 WBC (Bld) 1 % [facility] Neutrophils (Bld) [#/Vol] 14 10*3/uL High 1.5 - 6.6 10*3/uL [facility] Neutrophils/100 WBC (Bld) 82 % [facility] Platelet mean volume (Bld) [Entitic vol] 11.6 fL 7 - 12 fL [facility] Platelets (Bld) [#/Vol] 116 10*3/uL Low [facility] RBC (Bld) [#/Vol] 4.14 10*6/uL [facility] Variant lymphocytes/100 WBC (Bld) 5 % [facility] WBC LM Ql (Sput) 17.1 High [facility] IONIZED CALCIUMon 09-27-2024 IONIZED CALCIUM - ICAN 4.8 mg/dL Normal 4.5-5.3 [facility] Comment on above: Performed By: #### U LUDMILA #### [facility] ([facility]) [address] [place] [address] VIR Ionized calciumon 09-27-2024 Calcium.ionized ISE [Moles/Vol] 4.8 mg/dL 4.5 - 5.3 mg/dL [facility] Interpretation and review of laboratory results Normal [facility] MAGNESIUMon 09-27-2024 Magnesium [Mass/Vol] 1.9 mg/dL Normal 1.8-2.6 [facility] Comment on above: Performed By: #### U LUDMILA #### [facility] ([facility]) [address] [place] [address] VIR Magnesiumon 09-27-2024 Magnesium [Mass/Vol] 1.9 mg/dL 1.8 - 2 .6 mg/dL [facility] No Panel Informationon 09-27 Interpretation and review of laboratory results Normal [facility] PHOSPHORUSon 09-27-2024 Phosphate [Mass/Vol] 2.8 mg/dL Normal 2.4-4.9 [facility] Comment on above: Performed By: #### U LUDMILA #### [facility] ([facility]) [address] [place] [address] VIR Phosphoruson 09-27-2024 Phosphate [Mass/Vol] 2.8 mg/dL 2.4 - 4 .9 mg/dL [facility] XR CHEST 1 VWon 09-27-2024 XR CHEST 1 VW XR CHEST 1 VW Single view chest History:evaluate for PNA Difficulty breathing, shortness of breath Comparison: 09/23/2024 Findings: Single portable view of the chest. Stable cardiomediastinal silhouette. No focal opacity, effusion or pneumothorax. Impression: No significant interval change or definitive acute process. Finalized by Eliazar Sterling MD on 09/27/2024 6:34 AM Normal [facility] XR Chest Single viewon 09-27 [facility] Radiology Study observation (narrative) [facility] XR Chest Single viewOrdered By: Eliazar Sterling on 09-27-2024 [facility] Work Phone: Bacteria identified Aer cx N om (Bld)Ordered By: Sheng Calderon on 09-26-2024 Bacteria identified Aer cx Nom (Unsp spec) NO GROWTH 5 DAYS [facility] BASIC METABOLIC PANELon Anion gap [Moles/Vol] 10 mmol/L Normal 5-15 [facility] Comment on above: Performed By: #### U LUDMILA #### [facility] ([facility]) [address] [place] [address] VIR Calcium [Mass/Vol] 8.6 mg/dL Normal 8.5-10.[address] [facility] Comment on above: Performed By: #### U LUDMILA #### [facility] ([facility]) [address] [place] [address] VIR Chloride [Moles/Vol] 107 mmol/L Normal 98-109 [facility] Comment on above: Performed By: #### U LUDMILA #### [facility] ([facility]) [address] [place] [address] VIR CO2 [Moles/Vol] 24 mmol/L Normal 22-32 [facility] Comment on above: Performed By: #### U LUDMILA #### [facility] ([facility]) [address] [place] [address] VIR Creatinine [Mass/Vol] 0.80 mg/dL Normal 0.40-1.00 [facility] Comment on above: Result Comment: METH OD TRACEABLE TO IDMS STANDARD Performed By: #### U LUDMILA #### [facility] ([facility]) [address] [place] [address] VIR GFR/1.73 sq M.predicted among non-blacks MDRD (S/P/Bld) [Vol rate/Area] 86 mL/min/{1.73_m2} Normal >=60 [facility] Comment on above: Result Comment: Repo rted eGFR is based on the CKD-EPI 2020 equation that does not use a race coefficient. Performed By: #### U LUDMILA #### [facility] ([facility]) [address] [place] [address] VIR Glucose [Mass/Vol] 165 mg/dL High 65-[address] [facility] Comment on above: Performed By: #### U LUDMILA #### [facility] ([facility]) [address] [place] [address] VIR Potassium [Moles/Vol] 4.0 mmol/L Normal 3.5-5.0 [facility] Comment on above: Performed By: #### U LUDMILA #### [facility] ([facility]) [address] [place] [address] VIR Sodium [Moles/Vol] 141 mmol/L Normal 134-[address] [facility] Comment on above: Performed By: #### U LUDMILA #### [facility] ([facility]) [address] [place] [address] VIR Urea nitrogen [Mass/Vol] 24 mg/dL High 5-23 [facility] Comment on above: Performed By: #### U LUDMILA #### [facility] ([facility]) [address] [place] [address] VIR Basic Metabolic Panelon Anion gap [Moles/Vol] 10 mmol/L 5 - 15 mmol/L [facility] Calcium [Mass/Vol] 8.6 mg/dL 8.5 - 10. 5 mg/dL [facility] Chloride [Moles/Vol] 107 mmol/L 98 - 10 9 mmol/L [facility] CO2 [Moles/Vol] 24 mmol/L 22 - 32 mmol/L [facility] Creatinine [Mass/Vol] 0.8 mg/dL 0.40 - 1.00 mg/dL [facility] EGFR Non-Race Dependent 86 - PINF P [facility] Glucose [Mass/Vol] 165 mg/dL High 65 - 99 mg/dL [facility] Interpretation and review of laboratory results Abnormal [facility] Potassium [Moles/Vol] 4 mmol/L 3.5 - 5.0 mmol/L [facility] Sodium [Moles/Vol] 141 mmol/L 134 - 146 mmol/L [facility] Urea nitrogen [Mass/Vol] 24 mg/dL High 5 - 23 mg/dL [facility] CBC WITH AUTO DIFFERENTIALon 09-25-2024 CELLAVISION DIFFERENTIAL TYPE CELLAVISION DIFFERENTIAL Normal [facility] Comment on above: Result Comment: This is an appended report. These results have been appended to a previously preliminary verified report. Performed By: #### C PK #### [facility] ([facility]) [address] [place] [address] VIR CELLAVISION LYMPHOCYTES ABSOLUTE COUNT (10*3/UL) BY MANUAL COUNT 0.7 10*3/uL Low 1.0-3.5 [facility] Comment on above: Result Comment: This is an appended report. These results have been appended to a previously preliminary verified report. Performed By: #### C PK #### [facility] ([facility]) [address] [place] [address] VIR CELLAVISION LYMPHOCYTES RELATIVE PERCENT BY MANUAL COUNT 3 % Normal [facility] Comment on above: Result Comment: This is an appended report. These results have been appended to a previously preliminary verified report. Performed By: #### C PK #### [facility] ([facility]) [address] [place] [address] VIR CELLAVISION MONOCYTES ABSOLUTE COUNT (10*3/UL) IN BLOOD BY MANUAL COUNT 2.5 10*3/uL High 0.0-0.9 [facility] Comment on above: Result Comment: This is an appended report. These results have been appended to a previously preliminary verified report. Performed By: #### C PK #### [facility] ([facility]) [address] [place] [address] VIR CELLAVISION MONOCYTES RELATIVE PERCENT BY MANUAL COUNT 11 % Normal [facility] Comment on above: Result Comment: This is an appended report. These results have been appended to a previously preliminary verified report. Performed By: #### C PK #### [facility] ([facility]) [address] [place] [address] VIR CELLAVISION MYELOCYTE RELATIVE PERCENT BY MANUAL COUNT 1 % Normal [facility] Comment on above: Result Comment: This is an appended report. These results have been appended to a previously preliminary verified report. Performed By: #### C PK #### [facility] ([facility]) [address] [place] [address] VIR CELLAVISION NEUTROPHILS ABSOLUTE COUNT BY MANUAL COUNT 20.4 10*3/uL High 1.5-6.6 [facility] Comment on above: Result Comment: This is an appended report. These results have been appended to a previously preliminary verified report. Performed By: #### C PK #### [facility] ([facility]) [address] [place] [address] VIR CELLAVISION NEUTROPHILS RELATIVE PERCENT BY MANUAL COUNT 86 % Normal [facility] Comment on above: Result Comment: This is an appended report. These results have been appended to a previously preliminary verified report. Performed By: #### C PK #### [facility] ([facility]) [address] [place] [address] VIR CELLAVISION RBC MORPHOLOGY Normal Normal [facility] Comment on above: Result Comment: This is an appended report. These results have been appended to a previously preliminary verified report. Performed By: #### C PK #### [facility] ([facility]) [address] [place] [address] VIR CELLAVISION VACUOLATED NEUTROPHILS 1+ Normal [facility] Comment on above: Result Comment: This is an appended report. These results have been appended to a previously preliminary verified report. Performed By: #### C PK #### [facility] ([facility]) [address] [place] [address] VIR Erythrocyte distribution width (RBC) [Ratio] 15.8 % High 11.5-15 [facility] Comment on above: Performed By: #### C PK #### [facility] ([facility]) [address] [place] [address] VIR Hematocrit (Bld) [Volume fraction] 34.4 % Low 35-47 [facility] Comment on above: Performed By: #### C PK #### [facility] ([facility]) [address] [place] [address] VIR Hemoglobin (Bld) [Mass/Vol] 11.1 g/dL Low 11.7-15.5 [facility] Comment on above: Performed By: #### C PK #### [facility] ([facility]) [address] [place] [address] VIR MCH (RBC) [Entitic mass] 26.7 pg Low 27-34 [facility] Comment on above: Performed By: #### C PK #### [facility] ([facility]) [address] [place] [address] VIR MCHC (RBC) [Mass/Vol] 32.3 g/dL Normal 32-36 [facility] Comment on above: Performed By: #### C PK #### [facility] ([facility]) [address] [place] [address] VIR MCV (RBC) [Entitic vol] 83 fL Normal 80-100 [facility] Comment on above: Performed By: #### C PK #### [facility] ([facility]) [address] [place] [address] VIR Platelet mean volume (Bld) [Entitic vol] 10.5 fL Normal 7-12 [facility] Comment on above: Performed By: #### C PK #### [facility] ([facility]) [address] [place] [address] VIR Platelets (Bld) [#/Vol] 120 10*3/uL Low 150-450 [facility] Comment on above: Performed By: #### C PK #### [facility] ([facility]) [address] [place] [address] VIR RBC COUNT 4.16 X10E12/L Normal 3.8-5.2 [facility] Comment on above: Performed By: #### C PK #### [facility] ([facility]) [address] [place] [address] VIR WBC (Bld) [#/Vol] 23.8 10*3/uL High 4-[address] [facility] Comment on above: Performed By: #### C PK #### [facility] ([facility]) [address] [place] [address] VIR CBC auto differentialon 05-0 Differential cell count method Nom (Bld) CELLAVISION DIFFERENTIAL [facility] Erythrocyte distribution width (RBC) [Ratio] 15.8 % High 11.5 - 15 % [facility] Hematocrit (Bld) [Volume fraction] 34.4 % Low 35 - 47 % [facility] Hemoglobin (Bld) [Mass/Vol] 11.1 g/dL Low 11.7 - 15.5 g/dL [facility] Interpretation and review of laboratory results Abnormal [facility] Lymphocytes (Bld) [#/Vol] 0.7 10*3/uL Low 1.0 - 3.5 10*3/uL [facility] MCH (RBC) [Entitic mass] 26.7 pg Low 27 - 34 pg [facility] MCHC (RBC) [Mass/Vol] 32.3 g/dL 32 - 3 6 g/dL [facility] MCV (RBC) [Entitic vol] 83 fL 80 - 100 fL [facility] Monocytes (Bld) [#/Vol] 2.5 10*3/uL High 0.0 - 0.9 10*3/uL [facility] Monocytes/100 WBC (Bld) 11 % [facility] Myelocytes/100 WBC (Bld) 1 % [facility] Neutrophils (Bld) [#/Vol] 20.4 10*3/uL High 1.5 - 6.6 10*3/uL [facility] Neutrophils.vacuolated LM Ql (Bld) 1+ [facility] Neutrophils/100 WBC (Bld) 86 % [facility] Platelet mean volume (Bld) [Entitic vol] 10.5 fL 7 - 12 fL [facility] Platelets (Bld) [#/Vol] 120 10*3/uL Low [facility] RBC (Bld) [#/Vol] 4.16 10*6/uL [facility] RBC (Bld) [#/Vol] Normal [facility] Variant lymphocytes/100 WBC (Bld) 3 % [facility] WBC LM Ql (Sput) 23.8 High [facility] IONIZED CALCIUMon 09-25-2024 IONIZED CALCIUM - ICAN 4.8 mg/dL Normal 4.5-5.3 [facility] Comment on above: Performed By: #### C PK #### [facility] ([facility]) [address] [place] [address] VIR IONIZED MAGNESIUMon 09-26-19 Magnesium [Moles/Vol] 0.56 mmol/L Normal 0.45-0.74 [facility] Comment on above: Performed By: #### U LUDMILA #### [facility] ([facility]) [address] [place] [address] VIR Ionized calciumon 09-25-2024 Calcium.ionized ISE [Moles/Vol] 4.8 mg/dL 4.5 - 5.3 mg/dL [facility] Interpretation and review of laboratory results Normal [facility] Ionized magnesiumon 09-26-19 25 Interpretation and review of laboratory results Normal [facility] Magnesium Ionized ISE (Bld) [Moles/Vol] 0.56 mmol/L 0.45 - 0.74 mmol/L [facility] MAGNESIUMon 09-25-2024 Magnesium [Mass/Vol] 1.8 mg/dL Normal 1.8-2.6 [facility] Comment on above: Performed By: #### U LUDMILA #### [facility] ([facility]) [address] [place] [address] VIR Magnesiumon 09-25-2024 Interpretation and review of laboratory results Normal [facility] Magnesium [Mass/Vol] 1.8 mg/dL 1.8 - 2 .6 mg/dL [facility] No Panel Informationon 09-25 [facility] PHOSPHORUSon 09-25-2024 Phosphate [Mass/Vol] 2.3 mg/dL Low 2.4-4.9 [facility] Comment on above: Performed By: #### U LUDMILA #### [facility] ([facility]) [address] [place] [address] VIR Phosphoruson 09-25-2024 Interpretation and review of laboratory results Abnormal [facility] Phosphate [Mass/Vol] 2.3 mg/dL Low 2.4 - 4 .9 mg/dL [facility] Bacteria identified Aer cx N om (Bld)on 09-24-2024 Bacteria identified Aer cx Nom (Unsp spec) NO GROWTH 5 DAYS [facility] CBC WITH AUTO DIFFERENTIALon 09-24-2024 BASOPHILS ABSOLUTE COUNT (10*3/UL) BY AUTOMATED COUNT 0.0 10*3/uL Normal [facility] Comment on above: Result Comment: This is an appended report. These results have been appended to a previously preliminary verified report. Performed By: #### C PK #### [facility] ([facility]) [address] [place] [address] VIR BASOPHILS RELATIVE PERCENT BY AUTOMATED COUNT 0.1 % Normal [facility] Comment on above: Result Comment: This is an appended report. These results have been appended to a previously preliminary verified report. Performed By: #### C PK #### [facility] ([facility]) [address] [place] [address] VIR CELLAVISION DIFFERENTIAL TYPE AUTOMATED DIFFERENTIAL Normal [facility] Comment on above: Result Comment: This is an appended report. These results have been appended to a previously preliminary verified report. Performed By: #### C PK #### [facility] ([facility]) [address] [place] [address] VIR Eosinophils (Bld) [#/Vol] 0.0 10*3/uL Normal [facility] Comment on above: Result Comment: This is an appended report. These results have been appended to a previously preliminary verified report. Performed By: #### C PK #### [facility] ([facility]) [address] [place] [address] VIR EOSINOPHILS RELATIVE PERCENT BY AUTOMATED COUNT 0.0 % Normal [facility] Comment on above: Result Comment: This is an appended report. These results have been appended to a previously preliminary verified report. Performed By: #### C PK #### [facility] ([facility]) [address] [place] [address] VIR Erythrocyte distribution width (RBC) [Ratio] 15.3 % High 11.5-15 [facility] Comment on above: Performed By: #### C PK #### [facility] ([facility]) [address] [facility] [address] [place] [address] VIR Hematocrit (Bld) [Volume fraction] 34.8 % Low 35-47 [facility] Comment on above: Performed By: #### C PK #### [facility] ([facility]) [address] [facility] [address] [place] [address] VIR Hemoglobin (Bld) [Mass/Vol] 11.2 g/dL Low 11.7-15.5 [facility] Comment on above: Performed By: #### C PK #### [facility] ([facility]) [address] [place] [address] VIR LYMPHOCYTES ABSOLUTE COUNT (10*3/UL) BY AUTOMATED COUNT 0.7 10*3/uL Normal [facility] Comment on above: Result Comment: This is an appended report. These results have been appended to a previously preliminary verified report. Performed By: #### C PK #### [facility] ([facility]) [address] [facility] [address] [place] [address] VIR LYMPHOCYTES RELATIVE PERCENT BY AUTOMATED COUNT 2.8 % Normal [facility] Comment on above: Result Comment: This is an appended report. These results have been appended to a previously preliminary verified report. Performed By: #### C PK #### [facility] ([facility]) [address] [place] [address] VIR MCH (RBC) [Entitic mass] 26.5 pg Low 27-34 [facility] Comment on above: Performed By: #### C PK #### [facility] ([facility]) [address] [place] [address] VIR MCHC (RBC) [Mass/Vol] 32.1 g/dL Normal 32-36 [facility] Comment on above: Performed By: #### C PK #### [facility] ([facility]) [address] [place] [address] VIR MCV (RBC) [Entitic vol] 82 fL Normal 80-100 P [facility] Comment on above: Performed By: #### C PK #### [facility] ([facility]) [address] [facility] [address] [place] [address] VIR MONOCYTES ABSOLUTE COUNT (10*3/UL) BY AUTOMATED COUNT 2.8 10*3/uL Normal [facility] Comment on above: Result Comment: This is an appended report. These results have been appended to a previously preliminary verified report. Performed By: #### C PK #### [facility] ([facility]) [address] [place] [address] VIR MONOCYTES RELATIVE PERCENT BY AUTOMATED COUNT 10.4 % Normal [facility] Comment on above: Result Comment: This is an appended report. These results have been appended to a previously preliminary verified report. Performed By: #### C PK #### [facility] ([facility]) [address] [place] [address] VIR NEUTROPHILS ABSOLUTE COUNT BY AUTOMATED COUNT 22.9 10*3/uL Normal [facility] Comment on above: Result Comment: This is an appended report. These results have been appended to a previously preliminary verified report. Performed By: #### C PK #### [facility] ([facility]) [address] [place] [address] VIR NEUTROPHILS RELATIVE PERCENT BY AUTOMATED COUNT 86.7 % Normal [facility] Comment on above: Result Comment: This is an appended report. These results have been appended to a previously preliminary verified report. Performed By: #### C PK #### [facility] ([facility]) [address] [place] [address] VIR Platelet mean volume (Bld) [Entitic vol] 9.5 fL Normal 7-12 [facility] Comment on above: Performed By: #### C PK #### [facility] ([facility]) [address] [place] [address] VIR Platelets (Bld) [#/Vol] 155 10*3/uL Normal 150-450 [facility] Comment on above: Performed By: #### C PK #### [facility] ([facility]) [address] [facility] [address] [place] [address] VIR RBC COUNT 4.22 [id number]/L Normal 3.8-5.2 [facility] Comment on above: Performed By: #### C PK #### [facility] ([facility]) [address] [place] [address] VIR WBC (Bld) [#/Vol] 26.5 10*3/uL High 4-[address] [facility] Comment on above: Performed By: #### C PK #### [facility] ([facility]) [address] [place] [address] VIR CBC auto differentialon 05-0 Basophils (Bld) [#/Vol] 0 10*3/uL [facility] Basophils/100 WBC (Bld) 0.1 % [facility] Differential cell count method Nom (Bld) AUTOMATED DIFFERENTIAL [facility] Eosinophils (Bld) [#/Vol] 0 10*3/uL [facility] Eosinophils/100 WBC (Bld) 0 % [facility] Erythrocyte distribution width (RBC) [Ratio] 15.3 % High 11.5 - 15 % [facility] Hematocrit (Bld) [Volume fraction] 34.8 % Low 35 - 47 % [facility] Hemoglobin (Bld) [Mass/Vol] 11.2 g/dL Low 11.7 - 15.5 g/dL [facility] Interpretation and review of laboratory results Abnormal [facility] Lymphocytes (Bld) [#/Vol] 0.7 10*3/uL [facility] Lymphocytes/100 WBC (Bld) 2.8 % [facility] MCH (RBC) [Entitic mass] 26.5 pg Low 27 - 34 pg [facility] MCHC (RBC) [Mass/Vol] 32.1 g/dL 32 - 3 6 g/dL [facility] MCV (RBC) [Entitic vol] 82 fL 80 - 100 fL [facility] Monocytes (Bld) [#/Vol] 2.8 10*3/uL [facility] Monocytes/100 WBC (Bld) 10.4 % [facility] Neutrophils (Bld) [#/Vol] 22.9 10*3/uL [facility] Neutrophils/100 WBC (Bld) 86.7 % [facility] Platelet mean volume (Bld) [Entitic vol] 9.5 fL 7 - 12 fL [facility] Platelets (Bld) [#/Vol] 155 10*3/uL [facility] RBC (Bld) [#/Vol] 4.22 10*6/uL [facility] WBC LM Ql (Sput) 26.5 High [facility] COMPREHENSIVE METABOLIC PANE Antoni 09-24-2024 Albumin [Mass/Vol] 3.3 g/dL Normal 3.2-5.[address] [facility] Comment on above: Performed By: #### C PK #### [facility] ([facility]) [address] [place] [address] VIR ALP [Catalytic activity/Vol] 61 U/L Normal 39-130 [facility] Comment on above: Performed By: #### C PK #### [facility] ([facility]) [address] [place] [address] VIR ALT [Catalytic activity/Vol] 33 U/L High <=31 [facility] Comment on above: Performed By: #### C PK #### [facility] ([facility]) [address] [place] [address] VIR Anion gap [Moles/Vol] 10 mmol/L Normal 5-15 [facility] Comment on above: Performed By: #### C PK #### [facility] ([facility]) [address] [place] [address] VIR AST [Catalytic activity/Vol] 19 U/L Normal <=41 [facility] Comment on above: Performed By: #### C PK #### [facility] ([facility]) [address] [place] [address] VIR Bilirubin [Mass/Vol] 0.4 mg/dL Normal 0.3-1.2 [facility] Comment on above: Performed By: #### C PK #### [facility] ([facility]) [address] [place] [address] VIR Calcium [Mass/Vol] 8.7 mg/dL Normal 8.5-10.[address] [facility] Comment on above: Performed By: #### C PK #### [facility] ([facility]) [address] [place] [address] VIR Chloride [Moles/Vol] 108 mmol/L Normal 98-109 [facility] Comment on above: Performed By: #### C PK #### [facility] ([facility]) [address] [place] [address] VIR CO2 [Moles/Vol] 23 mmol/L Normal 22-32 [facility] Comment on above: Performed By: #### C PK #### [facility] ([facility]) [address] [place] [address] VIR Creatinine [Mass/Vol] 1.06 mg/dL High 0.40-1.00 [facility] Comment on above: Result Comment: METH OD TRACEABLE TO IDMS STANDARD Performed By: #### C PK #### [facility] ([facility]) [address] [place] [address] VIR GFR/1.73 sq M.predicted among non-blacks MDRD (S/P/Bld) [Vol rate/Area] 62 mL/min/{1.73_m2} Normal >=60 [facility] Comment on above: Result Comment: Repo rted eGFR is based on the CKD-EPI 2020 equation that does not use a race coefficient. Performed By: #### C PK #### [facility] ([facility]) [address] [place] [address] VIR Glucose [Mass/Vol] 120 mg/dL High 65-[address] [facility] Comment on above: Performed By: #### C PK #### [facility] ([facility]) [address] [place] [address] VIR Potassium [Moles/Vol] 4.3 mmol/L Normal 3.5-5.0 [facility] Comment on above: Performed By: #### C PK #### [facility] ([facility]) [address] [place] [address] VIR Protein [Mass/Vol] 6.3 g/dL Normal 6.0-8.[address] [facility] Comment on above: Performed By: #### C PK #### [facility] ([facility]) [address] [place] [address] VIR Sodium [Moles/Vol] 141 mmol/L Normal 134-[address] [facility] Comment on above: Performed By: #### C PK #### [facility] ([facility]) [address] [place] [address] VIR Urea nitrogen [Mass/Vol] 27 mg/dL High 5-23 [facility] Comment on above: Performed By: #### C PK #### [facility] ([facility]) [address] [place] [address] VIR CREATININE, SERUMon 09-25-19 25 CREATININE, SERUM SHIPPING/RECEIVING MANAGER CREATININE, SERU M Cancelled Normal [facility] Comment on above: Order Comment: Spoke to Regina Taylor RN. BMP since resulted making duplicate order, add-on is not necessary. Comprehensive metabolic pane lOrdered By: Paxtonhawa Navarro on 09-24-2024 Albumin [Mass/Vol] 3.3 g/dL 3.2 - 5.3 g/dL [facility] ALP [Catalytic activity/Vol] 61 U/L 39 - 130 U/L [facility] ALT No additional P-5'-P [Catalytic activity/Vol] 33 U/L High NINF - 31 U/L [facility] Anion gap [Moles/Vol] 10 mmol/L 5 - 15 mmol/L [facility] AST [Catalytic activity/Vol] 19 U/L NINF - 41 U/L [facility] Bilirubin [Mass/Vol] 0.4 mg/dL 0.3 - 1 .2 mg/dL [facility] Calcium [Mass/Vol] 8.7 mg/dL 8.5 - 10. 5 mg/dL [facility] Chloride [Moles/Vol] 108 mmol/L 98 - 10 9 mmol/L [facility] CO2 [Moles/Vol] 23 mmol/L 22 - 32 mmol/L [facility] Creatinine [Mass/Vol] 1.06 mg/dL High 0.40 - 1.00 mg/dL [facility] EGFR Non-Race Dependent 62 - PINF P [facility] Glucose [Mass/Vol] 120 mg/dL High 65 - 99 mg/dL [facility] Interpretation and review of laboratory results Abnormal [facility] Potassium [Moles/Vol] 4.3 mmol/L 3.5 - 5.0 mmol/L [facility] Protein [Mass/Vol] 6.3 g/dL 6.0 - 8.0 g/dL [facility] Sodium [Moles/Vol] 141 mmol/L 134 - 146 mmol/L [facility] Urea nitrogen [Mass/Vol] 27 mg/dL High 5 - 23 mg/dL [facility] FL SWALLOW MOTILITY FUNCTION on 09-24-2024 FL [...] Christian MD on 09/24/2024 1:36 PM Normal [facility] IONIZED CALCIUMon 09-24-2024 IONIZED CALCIUM - ICAN 4.9 mg/dL Normal 4.5-5.3 [facility] Comment on above: Performed By: #### C PK #### [facility] ([facility]) [address] [place] [address] VIR Ionized calciumon 09-24-2024 Calcium.ionized ISE [Moles/Vol] 4.9 mg/dL 4.5 - 5.3 mg/dL [facility] Interpretation and review of laboratory results Normal [facility] MAGNESIUMon 09-24-2024 Magnesium [Mass/Vol] 2.3 mg/dL Normal 1.8-2.6 [facility] Comment on above: Performed By: #### C PK #### [facility] ([facility]) [address] [place] [address] VIR Magnesiumon 09-24-2024 Magnesium [Mass/Vol] 2.3 mg/dL 1.8 - 2 .6 mg/dL [facility] No Panel Informationon 09-24 Interpretation and review of laboratory results Normal [facility] PHOSPHORUSon 09-24-2024 Phosphate [Mass/Vol] 3.5 mg/dL Normal 2.4-4.9 [facility] Comment on above: Performed By: #### C PK #### [facility] ([facility]) [address] [place] [address] VIR Phosphoruson 09-24-2024 Phosphate [Mass/Vol] 3.5 mg/dL 2.4 - 4 .9 mg/dL [facility] RF videography Hypopharynx a nd Esophagus Viewson 09-24-2024 SECTRAPACS [facility] Radiology Study observation (narrative) [facility] RF videography Hypopharynx a nd Esophagus ViewsOrdered By: Remy Christian on 09-24-2024 [facility] Work Phone: ABO Rh Repeaton 09-23-2024 ABO O [facility] Rh Nom (Bld) Positive [facility] ABO O [facility] Rh Nom (Bld) Positive [facility] BASIC METABOLIC PANELon 05- Anion gap [Moles/Vol] 8 mmol/L Normal 5-15 [facility] Comment on above: Performed By: #### T NIHS1 #### [facility] ([facility]) [address] [place] [address] VIR Calcium [Mass/Vol] 9.0 mg/dL Normal 8.5-10.[address] [facility] Comment on above: Performed By: #### T NIHS1 #### [facility] ([facility]) [address] [place] [address] VIR Chloride [Moles/Vol] 111 mmol/L High 98-109 [facility] Comment on above: Performed By: #### T [email or web address] #### [facility] ([facility]) [address] [place] [address] VIR CO2 [Moles/Vol] 24 mmol/L Normal 22-32 [facility] Comment on above: Performed By: #### T [email or web address] #### [facility] ([facility]) [address] [place] [address] VIR Creatinine [Mass/Vol] 0.91 mg/dL Normal 0.40-1.00 [facility] Comment on above: Result Comment: METH OD TRACEABLE TO IDMS STANDARD Performed By: #### T [email or web address] #### [facility] ([facility]) [address] [place] [address] VIR GFR/1.73 sq M.predicted among non-blacks MDRD (S/P/Bld) [Vol rate/Area] 74 mL/min/{1.73_m2} Normal >=60 [facility] Comment on above: Result Comment: Repo rted eGFR is based on the CKD-EPI 2020 equation that does not use a race coefficient. Performed By: #### T NIHS1 #### [facility] ([facility]) [address] [place] [address] VIR Glucose [Mass/Vol] 106 mg/dL High 65-[address] [facility] Comment on above: Performed By: #### T [email or web address] #### [facility] ([facility]) [address] [place] [address] VIR Potassium [Moles/Vol] 4.4 mmol/L Normal 3.5-5.0 [facility] Comment on above: Performed By: #### T [email or web address] #### [facility] ([facility]) [address] [place] [address] VIR Sodium [Moles/Vol] 143 mmol/L Normal 134-[address] [facility] Comment on above: Performed By: #### T [email or web address] #### [facility] ([facility]) [address] [place] [address] VIR Urea nitrogen [Mass/Vol] 25 mg/dL High 5-23 [facility] Comment on above: Performed By: #### T [email or web address] #### [facility] ([facility]) [address] [place] [address] VIR BEDSIDE GLUCOSEon 09-23-2024 Glucose [Mass/Vol] 153 mg/dL High 65-[address] [facility] Comment on above: Performed By: #### T [email or web address] #### [facility] ([facility]) [address] [place] [address] VIR Basic Metabolic PanelOrdered By: Prema Beach on 09-23-2024 Anion gap [Moles/Vol] 8 mmol/L 5 - 15 mmol/L [facility] Calcium [Mass/Vol] 9 mg/dL 8.5 - 10. 5 mg/dL [facility] Chloride [Moles/Vol] 111 mmol/L High 98 - 10 9 mmol/L [facility] CO2 [Moles/Vol] 24 mmol/L 22 - 32 mmol/L [facility] Creatinine [Mass/Vol] 0.91 mg/dL 0.40 - 1.00 mg/dL [facility] EGFR Non-Race Dependent 74 - PINF P [facility] Glucose [Mass/Vol] 106 mg/dL High 65 - 99 mg/dL [facility] Interpretation and review of laboratory results Abnormal [facility] Potassium [Moles/Vol] 4.4 mmol/L 3.5 - 5.0 mmol/L [facility] Sodium [Moles/Vol] 143 mmol/L 134 - 146 mmol/L [facility] Urea nitrogen [Mass/Vol] 25 mg/dL High 5 - 23 mg/dL [facility] Bedside Glucose *Place/Obtai n serum glucose if >500 per glucometer.on 09-23-2024 Glucose [Mass/Vol] 153 mg/dL High 65 - 99 mg/dL [facility] Interpretation and review of laboratory results Abnormal [facility] CBC WITH AUTO DIFFERENTIALon 09-23-2024 BASOPHILS ABSOLUTE COUNT (10*3/UL) BY AUTOMATED COUNT 0.1 10*3/uL Normal [facility] Comment on above: Performed By: #### T [email or web address] #### [facility] ([facility]) [address] [place] [address] VIR BASOPHILS RELATIVE PERCENT BY AUTOMATED COUNT 0.4 % Normal [facility] Comment on above: Performed By: #### T [email or web address] #### [facility] ([facility]) [address] [place] [address] VIR CELLAVISION DIFFERENTIAL TYPE AUTOMATED DIFFERENTIAL Normal [facility] Comment on above: Performed By: #### T [email or web address] #### [facility] ([facility]) [address] [place] [address] VIR Eosinophils (Bld) [#/Vol] 0.0 10*3/uL Normal [facility] Comment on above: Performed By: #### T [email or web address] #### [facility] ([facility]) [address] [place] [address] VIR EOSINOPHILS RELATIVE PERCENT BY AUTOMATED COUNT 0.1 % Normal [facility] Comment on above: Performed By: #### T [email or web address] #### [facility] ([facility]) [address] [place] [address] VIR Erythrocyte distribution width (RBC) [Ratio] 15.5 % High 11.5-15 [facility] Comment on above: Performed By: #### T [email or web address] #### [facility] ([facility]) [address] [place] [address] VIR Hematocrit (Bld) [Volume fraction] 37.3 % Normal 35-47 [facility] Comment on above: Performed By: #### T [email or web address] #### [facility] ([facility]) [address] [place] [address] VIR Hemoglobin (Bld) [Mass/Vol] 12.3 g/dL Normal 11.7-15.5 [facility] Comment on above: Performed By: #### T NIHS1 #### [facility] ([facility]) [address] [place] [address] VIR LYMPHOCYTES ABSOLUTE COUNT (10*3/UL) BY AUTOMATED COUNT 1.1 10*3/uL Normal [facility] Comment on above: Performed By: #### T NIHS1 #### [facility] ([facility]) [address] [place] [address] VIR LYMPHOCYTES RELATIVE PERCENT BY AUTOMATED COUNT 7.0 % Normal [facility] Comment on above: Performed By: #### T NIHS1 #### [facility] ([facility]) [address] [facility] [place] [address] VIR MCH (RBC) [Entitic mass] 26.9 pg Low 27-34 [facility] Comment on above: Performed By: #### T NIHS1 #### [facility] ([facility]) [address] [facility] [place] [address] VIR MCHC (RBC) [Mass/Vol] 32.9 g/dL Normal 32-36 [facility] Comment on above: Performed By: #### T NIHS1 #### [facility] ([facility]) [address] [place] [address] VIR MCV (RBC) [Entitic vol] 82 fL Normal 80-100 [facility] Comment on above: Performed By: #### T NIHS1 #### [facility] ([facility]) [address] [place] [address] VIR MONOCYTES ABSOLUTE COUNT (10*3/UL) BY AUTOMATED COUNT 1.0 10*3/uL Normal [facility] Comment on above: Performed By: #### T NIHS1 #### [facility] ([facility]) [address] [place] [address] VIR MONOCYTES RELATIVE PERCENT BY AUTOMATED COUNT 6.9 % Normal [facility] Comment on above: Performed By: #### T NIHS1 #### [facility] ([facility]) [address] [place] [address] VIR NEUTROPHILS ABSOLUTE COUNT BY AUTOMATED COUNT 12.9 10*3/uL Normal [facility] Comment on above: Performed By: #### T NIHS1 #### [facility] ([facility]) [address] [facility] [place] [address] VIR NEUTROPHILS RELATIVE PERCENT BY AUTOMATED COUNT 85.6 % Normal [facility] Comment on above: Performed By: #### T NIHS1 #### [facility] ([facility]) [address] [place] [address] VIR Platelet mean volume (Bld) [Entitic vol] 9.5 fL Normal 7-12 [facility] Comment on above: Performed By: #### T NIHS1 #### [facility] ([facility]) [address] [place] [address] VIR Platelets (Bld) [#/Vol] 167 10*3/uL Normal 150-450 [facility] Comment on above: Performed By: #### T NIHS1 #### [facility] ([facility]) [address] [place] [address] VIR RBC COUNT 4.57 X10E12/L Normal 3.8-5.2 [facility] Comment on above: Performed By: #### T NIHS1 #### [facility] ([facility]) [address] [place] [address] VIR WBC (Bld) [#/Vol] 15.1 10*3/uL High 4-[address] [facility] Comment on above: Performed By: #### T NIHS1 #### [facility] ([facility]) [address] [place] [address] VIR CBC auto differentialon 05-0 Basophils (Bld) [#/Vol] 0.1 10*3/uL [facility] Basophils/100 WBC (Bld) 0.4 % [facility] Differential cell count method Nom (Bld) AUTOMATED DIFFERENTIAL [facility] Eosinophils (Bld) [#/Vol] 0 10*3/uL [facility] Eosinophils/100 WBC (Bld) 0.1 % [facility] Erythrocyte distribution width (RBC) [Ratio] 15.5 % High 11.5 - 15 % [facility] Hematocrit (Bld) [Volume fraction] 37.3 % 35 - 47 % [facility] Hemoglobin (Bld) [Mass/Vol] 12.3 g/dL 11.7 - 15.5 g/dL [facility] Interpretation and review of laboratory results Abnormal [facility] Lymphocytes (Bld) [#/Vol] 1.1 10*3/uL [facility] Lymphocytes/100 WBC (Bld) 7 % [facility] MCH (RBC) [Entitic mass] 26.9 pg Low 27 - 34 pg [facility] MCHC (RBC) [Mass/Vol] 32.9 g/dL 32 - 3 6 g/dL [facility] MCV (RBC) [Entitic vol] 82 fL 80 - 100 fL [facility] Monocytes (Bld) [#/Vol] 1 10*3/uL P [facility] Monocytes/100 WBC (Bld) 6.9 % P [facility] Neutrophils (Bld) [#/Vol] 12.9 10*3/uL [facility] Neutrophils/100 WBC (Bld) 85.6 % [facility] Platelet mean volume (Bld) [Entitic vol] 9.5 fL 7 - 12 fL [facility] Platelets (Bld) [#/Vol] 167 10*3/uL [facility] RBC (Bld) [#/Vol] 4.57 10*6/uL [facility] WBC LM Ql (Sput) 15.1 High [facility] CT BRAIN WO CONTon 5 CT BRAIN [...] Hebert Farrar on 09/23/2024 7:38 PM Normal [facility] CT Head WO contraston 2024 SECTRAPACS [facility] Radiology Study observation (narrative) [facility] CT Head WO contrastOrdered B y: Hebert Farrar on 09-23-2024 [facility] Work Phone: Clinical Pathology ReviewOrd ered By: Jeremiah Altman on 09-23-2024 Case Report [facility] [employer] Work Phone: Pathology report final diagnosis Narrative d2kniMDrCQJjaWXsXILnC TozcmFcXBHipFNwX2Molo kcTVifOP4kAN7rqUqepHK xbELrUVVcJiJek5tjs115 mVRft2pmSBSPKOwbAKWHH Pk8hDrdE64wb3K3HxkxL2 1gzVTdKDO4SAOvPHFjiEP lHZSuXUO6UDEweSXiE9yv QKQpEQ3iisynYBkuYOwlI IHqtGB2EITchEOwW2DbUI MgMWkbRLDtprs5IyBdMt7 vdGVyeTcyMFxwYXJkXHBs YWluXGZzMjAgUHJvbWluZ Z94KREhilEvkE7fJoC8MR XiXUrqd98qQSFgG63dpBB wFGQrzP30th8ocHtsxLov krTqg9QgPpNzlSrtyjCkb bRrbIG9xB9kWiraWHEhHG pkm2YxDwOxhK8iyUdwSId wmCweyB0yqrMby8KgwA1m QTS0nGBkdPzvx4HjjmRfP 2CwukCfOupfULE7 [facility] Work Phone: [facility] Work Phone: ECG 12 leadon 09-23-2024 TRACEMASTERVUE [facility] IONIZED CALCIUMon 09-23-2024 IONIZED CALCIUM - ICAN 4.8 mg/dL Normal 4.5-5.3 [facility] Comment on above: Performed By: #### T NIHS1 #### [facility] ([facility]) [address] [place] [address] VIR Ionized calciumon 09-23-2024 Calcium.ionized ISE [Moles/Vol] 4.8 mg/dL 4.5 - 5.3 mg/dL [facility] Interpretation and review of laboratory results Normal [facility] MAGNESIUMon 09-23-2024 Magnesium [Mass/Vol] 1.8 mg/dL Normal 1.8-2.6 [facility] Comment on above: Performed By: #### T NIHS1 #### [facility] ([facility]) [address] [place] [address] VIR Magnesiumon 09-23-2024 Magnesium [Mass/Vol] 1.8 mg/dL 1.8 - 2 .6 mg/dL [facility] No Panel Informationon 09-23 Interpretation and review of laboratory results Normal [facility] PHOSPHORUSon 09-23-2024 Phosphate [Mass/Vol] 3.0 mg/dL Normal 2.4-4.9 [facility] Comment on above: Result Comment: R-Sp ecimen slightly hemolyzed, results increased Performed By: #### T NIHS1 #### [facility] ([facility]) [address] [place] [address] VIR Phosphoruson 09-23-2024 Phosphate [Mass/Vol] 3 mg/dL 2.4 - 4 .9 mg/dL [facility] Protein electrophoresis, ser umon 09-23-2024 Albumin [Mass/Vol] 2.8 g/dL Low 3.4 - 5.3 g/dL [facility] Alpha 1 globulin Elph [Mass/Vol] 0.6 g/dL High 0.1 - 0.4 g/dL [facility] Alpha 2 globulin Elph [Mass/Vol] 1.2 g/dL High 0.4 - 1.1 g/dL [facility] Beta globulin Elph [Mass/Vol] 1 g/dL 0.5 - 1.2 g/dL [facility] Gamma globulin Elph (Body fld) [Mass/Vol] 0.9 g/dL 0.5 - 1.6 g/dL [facility] Interpretation and review of laboratory results Abnormal [facility] Pathologist interpretation (Bld) [Interp] See Pathology Report [facility] Protein [Mass/Vol] 6.4 g/dL 6.0 - 8.0 g/dL [facility] REPEATED ABORHon 09-23-2024 ABO_INTEP O Normal [facility] Comment on above: Performed By: #### T NIHS1 #### [facility] ([facility]) [address] [place] [address] VIR RH_INTEP Positive Normal [facility] Comment on above: Performed By: #### T NIHS1 #### [facility] ([facility]) [address] [place] [address] VIR X-ray abdomen NG Tube placem ent 1 viewon 09-23-2024 [facility] Radiology Study observation (narrative) [facility] X-ray abdomen NG Tube placem ent 1 viewOrdered By: Sebastian Grayson on 09-23-2024 [facility] Work Phone: XR ABD NG [...] Grayson MD on 09/23/2024 5:22 PM Normal [facility] XR Chest Single [facility]on 09-[facility] (narrative) [facility] XR Chest Single viewOrdered By: Shen Farooq on 09-23-2024 [facility] Work Phone: BASIC METABOLIC PANELon 05-0 Anion gap [Moles/Vol] 11 mmol/L Normal 5-15 [facility] Comment on above: Performed By: #### C MP #### [facility] ([facility]) [address] [place] [address] VIR Calcium [Mass/Vol] 9.0 mg/dL Normal 8.5-10.[address] [facility] Comment on above: Performed By: #### C MP #### [facility] ([facility]) [address] [place] [address] VIR Chloride [Moles/Vol] 110 mmol/L High 98-109 [facility] Comment on above: Performed By: #### C MP #### [facility] ([facility]) [address] [place] [address] VIR CO2 [Moles/Vol] 23 mmol/L Normal 22-32 [facility] Comment on above: Performed By: #### C MP #### [facility] ([facility]) [address] [place] [address] VIR Creatinine [Mass/Vol] 1.01 mg/dL High 0.40-1.00 [facility] Comment on above: Result Comment: METH OD TRACEABLE TO IDMS STANDARD Performed By: #### C MP #### [facility] ([facility]) [address] [place] [address] VIR GFR/1.73 sq M.predicted among non-blacks MDRD (S/P/Bld) [Vol rate/Area] 65 mL/min/{1.73_m2} Normal >=60 [facility] Comment on above: Result Comment: Repo rted eGFR is based on the CKD-EPI 2020 equation that does not use a race coefficient. Performed By: #### C MP #### [facility] ([facility]) [address] [place] [address] VIR Glucose [Mass/Vol] 129 mg/dL High 65-[address] [facility] Comment on above: Performed By: #### C MP #### [facility] ([facility]) [address] [place] [address] VIR Potassium [Moles/Vol] 4.4 mmol/L Normal 3.5-5.0 [facility] Comment on above: Performed By: #### C MP #### [facility] ([facility]) [address] [place] [address] VIR Sodium [Moles/Vol] 144 mmol/L Normal 134-[address] [facility] Comment on above: Performed By: #### C MP #### [facility] ([facility]) [address] [place] [address] VIR Urea nitrogen [Mass/Vol] 24 mg/dL High 5-23 [facility] Comment on above: Performed By: #### C MP #### [facility] ([facility]) [address] [place] [address] VIR Basic Metabolic PanelOrdered By: Rosenda Hernández on 09-22-2024 Anion gap [Moles/Vol] 11 mmol/L 5 - 15 mmol/L [facility] Calcium [Mass/Vol] 9 mg/dL 8.5 - 10. 5 mg/dL [facility] Chloride [Moles/Vol] 110 mmol/L High 98 - 10 9 mmol/L [facility] CO2 [Moles/Vol] 23 mmol/L 22 - 32 mmol/L [facility] Creatinine [Mass/Vol] 1.01 mg/dL High 0.40 - 1.00 mg/dL [facility] EGFR Non-Race Dependent 65 - PINF P [facility] Glucose [Mass/Vol] 129 mg/dL High 65 - 99 mg/dL [facility] Interpretation and review of laboratory results Abnormal [facility] Potassium [Moles/Vol] 4.4 mmol/L 3.5 - 5.0 mmol/L [facility] Sodium [Moles/Vol] 144 mmol/L 134 - 146 mmol/L [facility] Urea nitrogen [Mass/Vol] 24 mg/dL High 5 - 23 mg/dL [facility] CBC WITH AUTO DIFFERENTIALon 09-22-2024 BASOPHILS ABSOLUTE COUNT (10*3/UL) BY AUTOMATED COUNT 0.0 10*3/uL Normal [facility] Comment on above: Performed By: #### C MP #### [facility] ([facility]) [address] [place] [address] VIR BASOPHILS RELATIVE PERCENT BY AUTOMATED COUNT 0.3 % Normal [facility] Comment on above: Performed By: #### C MP #### [facility] ([facility]) [address] [place] [address] VIR CELLAVISION DIFFERENTIAL TYPE AUTOMATED DIFFERENTIAL Normal [facility] Comment on above: Performed By: #### C MP #### [facility] ([facility]) [address] [place] [address] VIR Eosinophils (Bld) [#/Vol] 0.0 10*3/uL Normal [facility] Comment on above: Performed By: #### C MP #### [facility] ([facility]) [address] [place] [address] VIR EOSINOPHILS RELATIVE PERCENT BY AUTOMATED COUNT 0.0 % Normal [facility] Comment on above: Performed By: #### C MP #### [facility] ([facility]) [address] [place] [address] VIR Erythrocyte distribution width (RBC) [Ratio] 15.5 % High 11.5-15 [facility] Comment on above: Performed By: #### C MP #### [facility] ([facility]) [address] [place] [address] VIR Hematocrit (Bld) [Volume fraction] 38.0 % Normal 35-47 [facility] Comment on above: Performed By: #### C MP #### [facility] ([facility]) [address] [place] [address] VIR Hemoglobin (Bld) [Mass/Vol] 12.3 g/dL Normal 11.7-15.5 [facility] Comment on above: Performed By: #### C MP #### [facility] ([facility]) [address] [place] [address] VIR LYMPHOCYTES ABSOLUTE COUNT (10*3/UL) BY AUTOMATED COUNT 0.9 10*3/uL Normal [facility] Comment on above: Performed By: #### C MP #### [facility] ([facility]) [address] [place] [address] VIR LYMPHOCYTES RELATIVE PERCENT BY AUTOMATED COUNT 6.4 % Normal [facility] Comment on above: Performed By: #### C MP #### [facility] ([facility]) [address] [place] [address] VIR MCH (RBC) [Entitic mass] 27.0 pg Normal 27-34 [facility] Comment on above: Performed By: #### C MP #### [facility] ([facility]) [address] [place] [address] VIR MCHC (RBC) [Mass/Vol] 32.5 g/dL Normal 32-36 [facility] Comment on above: Performed By: #### C MP #### [facility] ([facility]) [address] [place] [address] VIR MCV (RBC) [Entitic vol] 83 fL Normal 80-100 P [facility] Comment on above: Performed By: #### C MP #### [facility] ([facility]) [address] [place] [address] VIR MONOCYTES ABSOLUTE COUNT (10*3/UL) BY AUTOMATED COUNT 0.8 10*3/uL Normal [facility] Comment on above: Performed By: #### C MP #### [facility] ([facility]) [address] [place] [address] VIR MONOCYTES RELATIVE PERCENT BY AUTOMATED COUNT 6.0 % Normal [facility] Comment on above: Performed By: #### C MP #### [facility] ([facility]) [address] [place] [address] VIR NEUTROPHILS ABSOLUTE COUNT BY AUTOMATED COUNT 11.9 10*3/uL Normal [facility] Comment on above: Performed By: #### C MP #### [facility] ([facility]) [address] [place] [address] VIR NEUTROPHILS RELATIVE PERCENT BY AUTOMATED COUNT 87.3 % Normal [facility] Comment on above: Performed By: #### C MP #### [facility] ([facility]) [address] [place] [address] VIR Platelet mean volume (Bld) [Entitic vol] 9.6 fL Normal 7-12 [facility] Comment on above: Performed By: #### C MP #### [facility] ([facility]) [address] [place] [address] VIR Platelets (Bld) [#/Vol] 167 10*3/uL Normal 150-450 [facility] Comment on above: Performed By: #### C MP #### [facility] ([facility]) [address] [place] [address] VIR RBC COUNT 4.57 X10E12/L Normal 3.8-5.2 [facility] Comment on above: Performed By: #### C MP #### [facility] ([facility]) [address] [place] [address] VIR WBC (Bld) [#/Vol] 13.7 10*3/uL High 4-[address] [facility] Comment on above: Performed By: #### C MP #### [facility] ([facility]) [address] [place] [address] VIR CBC auto differentialon 05-0 Basophils (Bld) [#/Vol] 0 10*3/uL P [facility] Basophils/100 WBC (Bld) 0.3 % P [facility] Differential cell count method Nom (Bld) AUTOMATED DIFFERENTIAL [facility] Eosinophils (Bld) [#/Vol] 0 10*3/uL [facility] Eosinophils/100 WBC (Bld) 0 % [facility] Erythrocyte distribution width (RBC) [Ratio] 15.5 % High 11.5 - 15 % [facility] Hematocrit (Bld) [Volume fraction] 38 % 35 - 47 % [facility] Hemoglobin (Bld) [Mass/Vol] 12.3 g/dL 11.7 - 15.5 g/dL [facility] Interpretation and review of laboratory results Abnormal [facility] Lymphocytes (Bld) [#/Vol] 0.9 10*3/uL [facility] Lymphocytes/100 WBC (Bld) 6.4 % [facility] MCH (RBC) [Entitic mass] 27 pg 27 - 34 pg [facility] MCHC (RBC) [Mass/Vol] 32.5 g/dL 32 - 3 6 g/dL [facility] MCV (RBC) [Entitic vol] 83 fL 80 - 100 fL [facility] Monocytes (Bld) [#/Vol] 0.8 10*3/uL [facility] Monocytes/100 WBC (Bld) 6 % [facility] Neutrophils (Bld) [#/Vol] 11.9 10*3/uL [facility] Neutrophils/100 WBC (Bld) 87.3 % [facility] Platelet mean volume (Bld) [Entitic vol] 9.6 fL 7 - 12 fL [facility] Platelets (Bld) [#/Vol] 167 10*3/uL [facility] RBC (Bld) [#/Vol] 4.57 10*6/uL [facility] WBC LM Ql (Sput) 13.7 High [facility] Cardiac echo study Procedure Ordered By: Nava Gamez on 09-22-2024 Aortic root 3 cm [facility] Work Phone: Aortic valve Mean systole pressure gradient by US.doppler derived full Bernoulli 4 mmHg [employer] Work Phone: Aortic valve Orifice area by US 3.39 [employer] Work Phone: Aortic valve Peak systolic flow by US.doppler 132 cm/s [employer] Work Phone: AV peak gradient 6.97 mmHg [employer] Work Phone: AV Velocity Ratio 0.98 [employer] Work Phone: AV VTI 28.3 cm [employer] Work Phone: E wave deceleration time 369 msec [employer] Work Phone: E/A ratio 0.5 [employer] Work Phone: Energy loss index 16.04 [employer] Work Phone: FS 46 % 28 - 44 % [employer] Work Phone: Interventricular Septum Diastolic Thickness by 2D 10 cm [employer] Work Phone: IVS 1 cm 0.6 - 1.1 cm [employer] Work Phone: LA size 3.2 cm [employer] Work Phone: LA volume 66.4 cm3 [employer] Work Phone: LA Volume Index 28.1 mL/m2 [employer] Work Phone: Left Ventricle Mass [id number] g [employer] Work Phone: LV ESV A2C 53.2 mL [employer] Work Phone: LV ESV A4C 78.5 mL [employer] Work Phone: LV RWT 2D 56.41 [employer] Work Phone: LVIDd 3.9 cm 7.16 - 9.95 cm [employer] Work Phone: LVIDs 2.1 cm 4.15 - 6.28 cm [employer] Work Phone: LVOT diameter 2.1 cm [employer] Work Phone: LVOT peak dayday 1.35 m/s [facility] Work Phone: LVOT peak VTI 27.7 cm [facility] Work Phone: LVOT stroke volume 95.94 ml [facility] Work Phone: Mitral Valve Max Velocity 2.24 cm/s [facility] Work Phone: MV mean gradient 10 mmHg [employer] Work Phone: MV Peak A Dayday 172 cm/s [facility] Work Phone: MV Peak E Dayday 86.8 cm/s [facility] Work Phone: MV peak gradient 20.07 mmHg [employer] Work Phone: MV pressure 1/2 time 108 ms [facility] Work Phone: MV TDI E' (medial) 3.92 cm/s [facility] Work Phone: MV valve area by continuity eq 1.35 [facility] Work Phone: MV valve area p 1/2 method 2.04 cm2 [employer] Work Phone: MV VTI 71 cm [employer] Work Phone: PV peak gradient 3.41 mmHg [employer] Work Phone: PW 1.1 cm 0.6 - 1.1 cm [employer] Work Phone: RV diastolic dimension (basal) 38 mm [employer] Work Phone: TAPSE 2.39 cm [employer] Work Phone: TDI 3.81 cm/s [facility] Work Phone: Valve area - Index 1.4 [employer] Work Phone: ZLVIDD -7.72 [facility] [employer] Work Phone: ZLVIDS -7.02 [facility] [employer] Work Phone: [facility] Work Phone: Cardiac echo study Procedure on 09-22-2024 [employer] Radiology Study observation (narrative) [facility] ELECTROLYTE PANELon 09-23-19 25 Anion gap [Moles/Vol] 11 mmol/L Normal 5-15 [facility] Comment on above: Performed By: #### C MP #### [facility] ([facility]) [address] [place] [address] VIR Chloride [Moles/Vol] 109 mmol/L Normal 98-109 [facility] Comment on above: Performed By: #### C MP #### [facility] ([facility]) [address] [place] [address] VIR CO2 [Moles/Vol] 22 mmol/L Normal 22-32 [facility] Comment on above: Performed By: #### C MP #### [facility] ([facility]) [address] [place] [address] VIR Potassium [Moles/Vol] 4.5 mmol/L Normal 3.5-5.0 [facility] Comment on above: Performed By: #### C MP #### [facility] ([facility]) [address] [place] [address] VIR Sodium [Moles/Vol] 142 mmol/L Normal 134-[address] [facility] Comment on above: Performed By: #### C MP #### [facility] ([facility]) [address] [place] [address] VIR Anion gap [Moles/Vol] 10 mmol/L Normal 5-15 [facility] Comment on above: Performed By: #### C MP #### [facility] ([facility]) [address] [place] [address] VIR Chloride [Moles/Vol] 110 mmol/L High 98-109 [facility] Comment on above: Performed By: #### C MP #### [facility] ([facility]) [address] [place] [address] VIR CO2 [Moles/Vol] 23 mmol/L Normal 22-32 [facility] Comment on above: Performed By: #### C MP #### [facility] ([facility]) [address] [place] [address] VIR Potassium [Moles/Vol] 4.1 mmol/L Normal 3.5-5.0 [facility] Comment on above: Performed By: #### C MP #### [facility] ([facility]) [address] [place] [address] VIR Sodium [Moles/Vol] 143 mmol/L Normal 134-[address] [facility] Comment on above: Performed By: #### C MP #### [facility] ([facility]) [address] [place] [address] VIR Electrolyte panelOrdered By: Leif Bazan on 09-22-2024 Anion gap [Moles/Vol] 11 mmol/L 5 - 15 mmol/L [facility] Chloride [Moles/Vol] 109 mmol/L 98 - 10 9 mmol/L [facility] CO2 [Moles/Vol] 22 mmol/L 22 - 32 mmol/L [facility] Interpretation and review of laboratory results Normal [facility] Potassium [Moles/Vol] 4.5 mmol/L 3.5 - 5.0 mmol/L [facility] Sodium [Moles/Vol] 142 mmol/L 134 - 146 mmol/L [facility] Electrolyte panelOrdered By: Mao Toro on 09-22-2024 Anion gap [Moles/Vol] 10 mmol/L 5 - 15 mmol/L [facility] Chloride [Moles/Vol] 110 mmol/L High 98 - 10 9 mmol/L [facility] CO2 [Moles/Vol] 23 mmol/L 22 - 32 mmol/L [facility] Interpretation and review of laboratory results Abnormal [facility] Potassium [Moles/Vol] 4.1 mmol/L 3.5 - 5.0 mmol/L [facility] Sodium [Moles/Vol] 143 mmol/L 134 - 146 mmol/L [facility] IONIZED CALCIUMon 09-22-2024 IONIZED CALCIUM - ICAN 4.6 mg/dL Normal 4.5-5.3 [facility] Comment on above: Performed By: #### C MP #### [facility] ([facility]) [address] [place] [address] VIR Ionized calciumOrdered By: Gladis Vásquez on 09-22-2024 Calcium.ionized ISE [Moles/Vol] 4.6 mg/dL 4.5 - 5.3 mg/dL [facility] Interpretation and review of laboratory results Normal [facility] MAGNESIUMon 09-22-2024 Magnesium [Mass/Vol] 1.9 mg/dL Normal 1.8-2.6 [facility] Comment on above: Performed By: #### C MP #### [facility] ([facility]) [address] [place] [address] VIR Magnesiumon 09-22-2024 Magnesium [Mass/Vol] 1.9 mg/dL 1.8 - 2 .6 mg/dL [facility] No Panel Informationon 09-22 Interpretation and review of laboratory results Normal [facility] PHOSPHORUSon 09-22-2024 Phosphate [Mass/Vol] 3.3 mg/dL Normal 2.4-4.9 [facility] Comment on above: Performed By: #### C MP #### [facility] ([facility]) [address] [place] [address] VIR Phosphoruson 09-22-2024 Phosphate [Mass/Vol] 3.3 mg/dL 2.4 - 4 .9 mg/dL [facility] TYPE AND SCREENon 09-22-2024 ABO_INTEP O Normal [facility] Comment on above: Performed By: #### T NIHS1 #### [facility] ([facility]) [address] [place] [address] VIR RH_INTEP Positive Normal [facility] Comment on above: Performed By: #### T NIHS1 #### [facility] ([facility]) [address] [facility] [place] [address] VIR Type and screen(includes ind irect sinan)on 09-22-2024 ABO O [facility] Rh Nom (Bld) Positive [facility] VANCOMYCIN, RANDOMon 025 VANCOMYCIN 16.5 ug/mL Normal 5.0-40.0 [facility] Comment on above: Order Comment: Peak 30-40 ug/mLTrough 5-20 ug/ml Performed By: #### C MP #### [facility] ([facility]) [address] [place] [address] VIR Vancomycin, randomon 025 Vancomycin [Susc] 16.5 ug/mL 5.0 - 40.0 ug/mL [facility] MAGI Screen w/ Reflexon 09-21 Interpretation and review of laboratory results Normal [facility] Nuclear Ab IA Ql (S) Negative Negative [facility] BASIC METABOLIC PANELon Anion gap [Moles/Vol] 10 mmol/L Normal 5-15 [facility] Comment on above: Performed By: #### L ACTS #### [facility] ([facility]) [address] [place] [address] VIR Calcium [Mass/Vol] 9.2 mg/dL Normal 8.5-10.[address] [facility] Comment on above: Performed By: #### L ACTS #### [facility] ([facility]) [address] [place] [address] VIR Chloride [Moles/Vol] 114 mmol/L High 98-109 [facility] Comment on above: Performed By: #### L ACTS #### [facility] ([facility]) [address] [place] [address] VIR CO2 [Moles/Vol] 24 mmol/L Normal 22-32 [facility] Comment on above: Performed By: #### L ACTS #### [facility] ([facility]) [address] [place] [address] VIR Creatinine [Mass/Vol] 1.27 mg/dL High 0.40-1.00 [facility] Comment on above: Result Comment: METH OD TRACEABLE TO IDMS STANDARD Performed By: #### L ACTS #### [facility] ([facility]) [address] [place] [address] VIR GFR/1.73 sq M.predicted among non-blacks MDRD (S/P/Bld) [Vol rate/Area] 50 mL/min/{1.73_m2} Low >=60 [facility] Comment on above: Result Comment: Repo rted eGFR is based on the CKD-EPI 2020 equation that does not use a race coefficient. Performed By: #### L ACTS #### [facility] ([facility]) [address] [place] [address] VIR Glucose [Mass/Vol] 127 mg/dL High 65-[address] [facility] Comment on above: Performed By: #### L ACTS #### [facility] ([facility]) [address] [place] [address] VIR Potassium [Moles/Vol] 3.9 mmol/L Normal 3.5-5.0 [facility] Comment on above: Performed By: #### L ACTS #### [facility] ([facility]) [address] [place] [address] VIR Sodium [Moles/Vol] 148 mmol/L High 134-[address] [facility] Comment on above: Performed By: #### L ACTS #### [facility] ([facility]) [address] [place] [address] VIR Urea nitrogen [Mass/Vol] 24 mg/dL High 5-23 [facility] Comment on above: Performed By: #### L ACTS #### [facility] ([facility]) [address] [place] [address] VIR Bacteria identified Aer cx N om (Bld)Ordered By: Maicol Mg on 09-21-2024 Bacteria identified Aer cx Nom (Unsp spec) Negative Abnormal [facility] Interpretation and review of laboratory results Abnormal [facility] Microscopic observation Gram stain Nom (Unsp spec) Positive Abnormal [facility] Basic Metabolic Panelon Anion gap [Moles/Vol] 10 mmol/L 5 - 15 mmol/L [facility] Calcium [Mass/Vol] 9.2 mg/dL 8.5 - 10. 5 mg/dL [facility] Chloride [Moles/Vol] 114 mmol/L High 98 - 10 9 mmol/L [facility] CO2 [Moles/Vol] 24 mmol/L 22 - 32 mmol/L [facility] Creatinine [Mass/Vol] 1.27 mg/dL High 0.40 - 1.00 mg/dL [facility] EGFR Non-Race Dependent 50 Low - PINF [facility] Glucose [Mass/Vol] 127 mg/dL High 65 - 99 mg/dL [facility] Interpretation and review of laboratory results Abnormal [facility] Potassium [Moles/Vol] 3.9 mmol/L 3.5 - 5.0 mmol/L [facility] Sodium [Moles/Vol] 148 mmol/L High 134 - 146 mmol/L [facility] Urea nitrogen [Mass/Vol] 24 mg/dL High 5 - 23 mg/dL [facility] CBC WITH AUTO DIFFERENTIALon 09-21-2024 BASOPHILS ABSOLUTE COUNT (10*3/UL) BY AUTOMATED COUNT 0.1 10*3/uL Normal [facility] Comment on above: Performed By: #### A MMON #### [facility] ([facility]) [address] [place] [address] VIR BASOPHILS RELATIVE PERCENT BY AUTOMATED COUNT 0.7 % Normal [facility] Comment on above: Performed By: #### A MMON #### [facility] ([facility]) [address] [place] [address] VIR CELLAVISION DIFFERENTIAL TYPE AUTOMATED DIFFERENTIAL Normal [facility] Comment on above: Performed By: #### A MMON #### [facility] ([facility]) [address] [place] [address] VIR Eosinophils (Bld) [#/Vol] 0.0 10*3/uL Normal [facility] Comment on above: Performed By: #### A MMON #### [facility] ([facility]) [address] [place] [address] VIR EOSINOPHILS RELATIVE PERCENT BY AUTOMATED COUNT 0.0 % Normal [facility] Comment on above: Performed By: #### A MMON #### [facility] ([facility]) [address] [place] [address] VIR Erythrocyte distribution width (RBC) [Ratio] 15.1 % High 11.5-15 [facility] Comment on above: Performed By: #### A MMON #### [facility] ([facility]) [address] [place] [address] VIR Hematocrit (Bld) [Volume fraction] 33.6 % Low 35-47 [facility] Comment on above: Performed By: #### A MMON #### [facility] ([facility]) [address] [place] [address] VIR Hemoglobin (Bld) [Mass/Vol] 11.0 g/dL Low 11.7-15.5 [facility] Comment on above: Performed By: #### A MMON #### [facility] ([facility]) [address] [place] [address] VIR LYMPHOCYTES ABSOLUTE COUNT (10*3/UL) BY AUTOMATED COUNT 0.8 10*3/uL Normal [facility] Comment on above: Performed By: #### A MMON #### [facility] ([facility]) [address] [place] [address] VIR LYMPHOCYTES RELATIVE PERCENT BY AUTOMATED COUNT 6.2 % Normal [facility] Comment on above: Performed By: #### A MMON #### [facility] ([facility]) [address] [place] [address] VIR MCH (RBC) [Entitic mass] 27.1 pg Normal 27-34 [facility] Comment on above: Performed By: #### A MMON #### [facility] ([facility]) [address] [place] [address] VIR MCHC (RBC) [Mass/Vol] 32.6 g/dL Normal 32-36 [facility] Comment on above: Performed By: #### A MMON #### [facility] ([facility]) [address] [place] [address] VIR MCV (RBC) [Entitic vol] 83 fL Normal 80-100 [facility] Comment on above: Performed By: #### A MMON #### [facility] ([facility]) [address] [place] [address] VIR MONOCYTES ABSOLUTE COUNT (10*3/UL) BY AUTOMATED COUNT 0.6 10*3/uL Normal [facility] Comment on above: Performed By: #### A MMON #### [facility] ([facility]) [address] [place] [address] VIR MONOCYTES RELATIVE PERCENT BY AUTOMATED COUNT 4.8 % Normal [facility] Comment on above: Performed By: #### A MMON #### [facility] ([facility]) [address] [place] [address] VIR NEUTROPHILS ABSOLUTE COUNT BY AUTOMATED COUNT 10.8 10*3/uL Normal [facility] Comment on above: Performed By: #### A MMON #### [facility] ([facility]) [address] [place] [address] VIR NEUTROPHILS RELATIVE PERCENT BY AUTOMATED COUNT 88.3 % Normal [facility] Comment on above: Performed By: #### A MMON #### [facility] ([facility]) [address] [facility] [address] [place] [address] VIR Platelet mean volume (Bld) [Entitic vol] 9.2 fL Normal 7-12 [facility] Comment on above: Performed By: #### A MMON #### [facility] ([facility]) [address] [facility] [address] [place] [address] VIR Platelets (Bld) [#/Vol] 183 10*3/uL Normal 150-450 [facility] Comment on above: Performed By: #### A MMON #### [facility] ([facility]) [address] [facility] [address] [place] [address] VIR RBC COUNT 4.05 [id number]/L Normal 3.8-5.2 [facility] Comment on above: Performed By: #### A MMON #### [facility] ([facility]) [address] [facility] [address] [place] [address] VIR WBC (Bld) [#/Vol] 12.2 10*3/uL High 4-[address] [facility] Comment on above: Performed By: #### A MMON #### [facility] ([facility]) [address] [facility] [address] [place] [address] VIR CBC auto differentialon 05-0 -2024 Basophils (Bld) [#/Vol] 0.1 10*3/uL [facility] Basophils/100 WBC (Bld) 0.7 % P [facility] Differential cell count method Nom (Bld) AUTOMATED DIFFERENTIAL [facility] Eosinophils (Bld) [#/Vol] 0 10*3/uL [facility] Eosinophils/100 WBC (Bld) 0 % [facility] Erythrocyte distribution width (RBC) [Ratio] 15.1 % High 11.5 - 15 % [facility] Hematocrit (Bld) [Volume fraction] 33.6 % Low 35 - 47 % [facility] Hemoglobin (Bld) [Mass/Vol] 11 g/dL Low 11.7 - 15.5 g/dL [facility] Interpretation and review of laboratory results Abnormal [facility] Lymphocytes (Bld) [#/Vol] 0.8 10*3/uL [facility] Lymphocytes/100 WBC (Bld) 6.2 % [facility] MCH (RBC) [Entitic mass] 27.1 pg 27 - 34 pg [facility] MCHC (RBC) [Mass/Vol] 32.6 g/dL 32 - 3 6 g/dL [facility] MCV (RBC) [Entitic vol] 83 fL 80 - 100 fL [facility] Monocytes (Bld) [#/Vol] 0.6 10*3/uL [facility] Monocytes/100 WBC (Bld) 4.8 % P [facility] Neutrophils (Bld) [#/Vol] 10.8 10*3/uL [facility] Neutrophils/100 WBC (Bld) 88.3 % [facility] Platelet mean volume (Bld) [Entitic vol] 9.2 fL 7 - 12 fL [facility] Platelets (Bld) [#/Vol] 183 10*3/uL [facility] RBC (Bld) [#/Vol] 4.05 10*6/uL [facility] WBC LM Ql (Sput) 12.2 High [facility] ELECTROLYTE PANELon 09-22-19 25 Anion gap [Moles/Vol] 11 mmol/L Normal 5-15 [facility] Comment on above: Performed By: #### C MP #### [facility] ([facility]) [address] [place] [address] VIR Chloride [Moles/Vol] 113 mmol/L High 98-109 [facility] Comment on above: Performed By: #### C MP #### [facility] ([facility]) [address] [place] [address] VIR CO2 [Moles/Vol] 22 mmol/L Normal 22-32 [facility] Comment on above: Performed By: #### C MP #### [facility] ([facility]) [address] [place] [address] VIR Potassium [Moles/Vol] 4.2 mmol/L Normal 3.5-5.0 [facility] Comment on above: Performed By: #### C MP #### [facility] ([facility]) [address] [place] [address] VIR Sodium [Moles/Vol] 146 mmol/L Normal 134-[address] [facility] Comment on above: Performed By: #### C MP #### [facility] ([facility]) [address] [place] [address] VIR Anion gap [Moles/Vol] 9 mmol/L Normal 5-15 [facility] Comment on above: Performed By: #### L ACTS #### [facility] ([facility]) [address] [place] [address] VIR Chloride [Moles/Vol] 112 mmol/L High 98-109 [facility] Comment on above: Performed By: #### L ACTS #### [facility] ([facility]) [address] [place] [address] VIR CO2 [Moles/Vol] 24 mmol/L Normal 22-32 [facility] Comment on above: Performed By: #### L ACTS #### [facility] ([facility]) [address] [place] [address] VIR Potassium [Moles/Vol] 4.1 mmol/L Normal 3.5-5.0 [facility] Comment on above: Performed By: #### L ACTS #### [facility] ([facility]) [address] [place] [address] VIR Sodium [Moles/Vol] 145 mmol/L Normal 134-[address] [facility] Comment on above: Performed By: #### L ACTS #### [facility] ([facility]) [address] [place] [address] VIR Electrolyte panelOrdered By: Tk Keene on 09-21-2024 Anion gap [Moles/Vol] 11 mmol/L 5 - 15 mmol/L [facility] Chloride [Moles/Vol] 113 mmol/L High 98 - 10 9 mmol/L [facility] CO2 [Moles/Vol] 22 mmol/L 22 - 32 mmol/L [facility] Interpretation and review of laboratory results Abnormal [facility] Potassium [Moles/Vol] 4.2 mmol/L 3.5 - 5.0 mmol/L [facility] Sodium [Moles/Vol] 146 mmol/L 134 - 146 mmol/L [facility] Electrolyte panelOrdered By: Alexa Carrero on 09-21-2024 Anion gap [Moles/Vol] 9 mmol/L 5 - 15 mmol/L [facility] Chloride [Moles/Vol] 112 mmol/L High 98 - 10 9 mmol/L [facility] CO2 [Moles/Vol] 24 mmol/L 22 - 32 mmol/L [facility] Interpretation and review of laboratory results Abnormal [facility] Potassium [Moles/Vol] 4.1 mmol/L 3.5 - 5.0 mmol/L [facility] Sodium [Moles/Vol] 145 mmol/L 134 - 146 mmol/L [facility] Glomerular basement membrane IgG ABon 09-21-2024 Glomerular basement membrane IgG Qn (S) NINF [facility] IONIZED CALCIUMon 09-21-2024 IONIZED CALCIUM - ICAN 5.1 mg/dL Normal 4.5-5.3 [facility] Comment on above: Performed By: #### A MMON #### [facility] ([facility]) [address] [place] [address] VIR IONIZED MAGNESIUMon 09-22-19 25 Magnesium [Moles/Vol] 0.61 mmol/L Normal 0.45-0.74 [facility] Comment on above: Performed By: #### L ACTS #### [facility] ([facility]) [address] [place] [address] VIR Ionized calciumon 09-21-2024 Calcium.ionized ISE [Moles/Vol] 5.1 mg/dL 4.5 - 5.3 mg/dL [facility] Interpretation and review of laboratory results Normal [facility] Ionized magnesiumon 09-22-19 Interpretation and review of laboratory results Normal [facility] Magnesium Ionized ISE (Bld) [Moles/Vol] 0.61 mmol/L 0.45 - 0.74 mmol/L [facility] MAGNESIUMon 09-21-2024 Magnesium [Mass/Vol] 1.8 mg/dL Normal 1.8-2.6 [facility] Comment on above: Performed By: #### A MMON #### [facility] ([facility]) [address] [place] [address] VIR Magnesiumon 09-21-2024 Magnesium [Mass/Vol] 1.8 mg/dL 1.8 - 2 .6 mg/dL [facility] Myeloperoxidase ABon 025 Myeloperoxidase Ab Qn (S) [facility] No Panel Informationon 09-21 Interpretation and review of laboratory results Normal [facility] Interpretation and review of laboratory results Normal [facility] PHOSPHORUSon 09-21-2024 Phosphate [Mass/Vol] 2.7 mg/dL Normal 2.4-4.9 [facility] Comment on above: Performed By: #### L ACTS #### [facility] ([facility]) [address] [place] [address] VIR Phosphoruson 09-21-2024 Phosphate [Mass/Vol] 2.7 mg/dL 2.4 - 4 .9 mg/dL [facility] Proteinase 3 AB PR3on 2024 Proteinase 3 Ab Qn (S) [facility] VANCOMYCIN, RANDOMon 025 VANCOMYCIN 16.0 ug/mL Normal 5.0-40.0 [facility] Comment on above: Order Comment: Resul t did not trigger repeat Lactate, re-order if needed. Performed By: #### L ACTS #### [facility] ([facility]) [address] [place] [address] VIR Vancomycin, randomon 025 Interpretation and review of laboratory results Normal [facility] Vancomycin [Susc] 16 ug/mL 5.0 - 40.0 ug/mL [facility] BASIC METABOLIC PANELon 05 Anion gap [Moles/Vol] 11 mmol/L Normal 5-15 [facility] Comment on above: Performed By: #### N UM #### [facility] ([facility]) [address] [place] [address] VIR Calcium [Mass/Vol] 9.3 mg/dL Normal 8.5-10.[address] [facility] Comment on above: Performed By: #### N UM #### [facility] ([facility]) [address] [place] [address] VIR Chloride [Moles/Vol] 119 mmol/L High 98-109 [facility] Comment on above: Performed By: #### N UM #### [facility] ([facility]) [address] [place] [address] VIR CO2 [Moles/Vol] 24 mmol/L Normal 22-32 [facility] Comment on above: Performed By: #### N UM #### [facility] ([facility]) [address] [place] [address] VIR Creatinine [Mass/Vol] 2.60 mg/dL High 0.40-1.00 [facility] Comment on above: Result Comment: METH OD TRACEABLE TO IDMS STANDARD Performed By: #### N UM #### [facility] ([facility]) [address] [place] [address] VIR GFR/1.73 sq M.predicted among non-blacks MDRD (S/P/Bld) [Vol rate/Area] 21 mL/min/{1.73_m2} Low >=60 [facility] Comment on above: Result Comment: Repo rted eGFR is based on the CKD-EPI 2020 equation that does not use a race coefficient. Performed By: #### N UM #### [facility] ([facility]) [address] [place] [address] VIR Glucose [Mass/Vol] 149 mg/dL High 65-[address] [facility] Comment on above: Performed By: #### N UM #### [facility] ([facility]) [address] [place] [address] VIR Potassium [Moles/Vol] 4.0 mmol/L Normal 3.5-5.0 [facility] Comment on above: Performed By: #### N UM #### [facility] ([facility]) [address] [place] [address] VIR Sodium [Moles/Vol] 154 mmol/L High 134-[address] [facility] Comment on above: Performed By: #### N UM #### [facility] ([facility]) [address] [place] [address] VIR Urea nitrogen [Mass/Vol] 38 mg/dL High 5-23 [facility] Comment on above: Performed By: #### N UM #### [facility] ([facility]) [address] [place] [address] VIR BLOOD CULTUREon 09-20-2024 Bacteria identified Cx Nom (Bld) CULTURE RESULTS NO GROWTH 5 DAYS Normal [facility] Comment on above: Order Comment: Resul t did not trigger repeat Lactate, re-order if needed. Performed By: #### L ACTS #### [facility] ([facility]) [address] [place] [address] VIR Bacteria identified Cx Nom (Bld) CULTURE RESULTS NO GROWTH 5 DAYS Normal [facility] Comment on above: Order Comment: *SIRS [...] be affected. Performed By: #### C #### [facility] ([facility]) [address] [place] [address] VIR Basic Metabolic Panelon Anion gap [Moles/Vol] 11 mmol/L 5 - 15 mmol/L [facility] Calcium [Mass/Vol] 9.3 mg/dL 8.5 - 10. 5 mg/dL [facility] Chloride [Moles/Vol] 119 mmol/L High 98 - 10 9 mmol/L [facility] CO2 [Moles/Vol] 24 mmol/L 22 - 32 mmol/L [facility] Creatinine [Mass/Vol] 2.6 mg/dL High 0.40 - 1.00 mg/dL [facility] EGFR Non-Race Dependent 21 Low - PINF P [facility] Glucose [Mass/Vol] 149 mg/dL High 65 - 99 mg/dL [facility] Interpretation and review of laboratory results Abnormal [facility] Potassium [Moles/Vol] 4 mmol/L 3.5 - 5.0 mmol/L [facility] Sodium [Moles/Vol] 154 mmol/L High 134 - 146 mmol/L [facility] Urea nitrogen [Mass/Vol] 38 mg/dL High 5 - 23 mg/dL [facility] CBC WITH AUTO DIFFERENTIALon 09-20-2024 BASOPHILS ABSOLUTE COUNT (10*3/UL) BY AUTOMATED COUNT 0.0 10*3/uL Normal [facility] Comment on above: Performed By: #### N UM #### [facility] ([facility]) [address] [place] [address] VIR BASOPHILS RELATIVE PERCENT BY AUTOMATED COUNT 0.5 % Normal [facility] Comment on above: Performed By: #### N UM #### [facility] ([facility]) [address] [place] [address] VIR CELLAVISION DIFFERENTIAL TYPE AUTOMATED DIFFERENTIAL Normal [facility] Comment on above: Performed By: #### N UM #### [facility] ([facility]) [address] [place] [address] VIR Eosinophils (Bld) [#/Vol] 0.0 10*3/uL Normal [facility] Comment on above: Performed By: #### N UM #### [facility] ([facility]) [address] [place] [address] VIR EOSINOPHILS RELATIVE PERCENT BY AUTOMATED COUNT 0.0 % Normal [facility] Comment on above: Performed By: #### N UM #### [facility] ([facility]) [address] [place] [address] VIR Erythrocyte distribution width (RBC) [Ratio] 15.6 % High 11.5-15 [facility] Comment on above: Performed By: #### N UM #### [facility] ([facility]) [address] [place] [address] VIR Hematocrit (Bld) [Volume fraction] 33.5 % Low 35-47 [facility] Comment on above: Performed By: #### N UM #### [facility] ([facility]) [address] [place] [address] VIR Hemoglobin (Bld) [Mass/Vol] 11.0 g/dL Low 11.7-15.5 [facility] Comment on above: Performed By: #### N UM #### [facility] ([facility]) [address] [place] [address] VIR LYMPHOCYTES ABSOLUTE COUNT (10*3/UL) BY AUTOMATED COUNT 0.5 10*3/uL [facility] Comment on above: Performed By: #### N UM #### [facility] ([facility]) [address] [place] [address] VIR LYMPHOCYTES RELATIVE PERCENT BY AUTOMATED COUNT 5.6 % Normal [facility] Comment on above: Performed By: #### N UM #### [facility] ([facility]) [address] [facility] [place] [address] VIR MCH (RBC) [Entitic mass] 26.9 pg Low 27-34 [facility] Comment on above: Performed By: #### N UM #### [facility] ([facility]) [address] [place] [address] VIR MCHC (RBC) [Mass/Vol] 32.8 g/dL Normal 32-36 [facility] Comment on above: Performed By: #### N UM #### [facility] ([facility]) [address] [facility] [place] [address] VIR MCV (RBC) [Entitic vol] 82 fL Normal 80-100 [facility] Comment on above: Performed By: #### N UM #### [facility] ([facility]) [address] [facility] [place] [address] VIR MONOCYTES ABSOLUTE COUNT (10*3/UL) BY AUTOMATED COUNT 0.4 10*3/uL Normal [facility] Comment on above: Performed By: #### N UM #### [facility] ([facility]) [address] [facility] [address] [place] [address] VIR MONOCYTES RELATIVE PERCENT BY AUTOMATED COUNT 4.3 % Normal [facility] Comment on above: Performed By: #### N UM #### [facility] ([facility]) [address] [facility] [place] [address] VIR NEUTROPHILS ABSOLUTE COUNT BY AUTOMATED COUNT 8.0 10*3/uL Normal [facility] Comment on above: Performed By: #### N UM #### [facility] ([facility]) [address] [facility] [address] [place] [address] VIR NEUTROPHILS RELATIVE PERCENT BY AUTOMATED COUNT 89.6 % Normal [facility] Comment on above: Performed By: #### N UM #### [facility] ([facility]) [address] [place] [address] VIR Platelet mean volume (Bld) [Entitic vol] 9.0 fL Normal 7-12 [facility] Comment on above: Performed By: #### N UM #### [facility] ([facility]) [address] [place] [address] VIR Platelets (Bld) [#/Vol] 190 10*3/uL Normal 150-450 [facility] Comment on above: Performed By: #### N UM #### [facility] ([facility]) [address] [place] [address] VIR RBC COUNT 4.08 X10E12/L Normal 3.8-5.2 [facility] Comment on above: Performed By: #### N UM #### [facility] ([facility]) [address] [place] [address] VIR WBC (Bld) [#/Vol] 8.9 10*3/uL Normal 4-[address] [facility] Comment on above: Performed By: #### N UM #### [facility] ([facility]) [address] [place] [address] VIR CBC auto differentialon 05-0 Basophils (Bld) [#/Vol] 0 10*3/uL [facility] Basophils/100 WBC (Bld) 0.5 % [facility] Differential cell count method Nom (Bld) AUTOMATED DIFFERENTIAL [facility] Eosinophils (Bld) [#/Vol] 0 10*3/uL [facility] Eosinophils/100 WBC (Bld) 0 % [facility] Erythrocyte distribution width (RBC) [Ratio] 15.6 % High 11.5 - 15 % [facility] Hematocrit (Bld) [Volume fraction] 33.5 % Low 35 - 47 % [facility] Hemoglobin (Bld) [Mass/Vol] 11 g/dL Low 11.7 - 15.5 g/dL [facility] Interpretation and review of laboratory results Abnormal [facility] Lymphocytes (Bld) [#/Vol] 0.5 10*3/uL [facility] Lymphocytes/100 WBC (Bld) 5.6 % [facility] MCH (RBC) [Entitic mass] 26.9 pg Low 27 - 34 pg [facility] MCHC (RBC) [Mass/Vol] 32.8 g/dL 32 - 3 6 g/dL [facility] MCV (RBC) [Entitic vol] 82 fL 80 - 100 fL [facility] Monocytes (Bld) [#/Vol] 0.4 10*3/uL [facility] Monocytes/100 WBC (Bld) 4.3 % P [facility] Neutrophils (Bld) [#/Vol] 8 10*3/uL [facility] Neutrophils/100 WBC (Bld) 89.6 % [facility] Platelet mean volume (Bld) [Entitic vol] 9 fL 7 - 12 fL [facility] Platelets (Bld) [#/Vol] 190 10*3/uL [facility] RBC (Bld) [#/Vol] 4.08 10*6/uL [facility] WBC LM Ql (Sput) 8.[address] [facility] [address] ABDOMEN AND PELVIS WO CON [...] Mejia MD on 09/20/2024 3:53 PM Normal [facility] CT Abdomen and Pelvis WO con traston 09-20-2024 SECTRAPACS [facility] Radiology Study observation (narrative) [facility] CT Abdomen and Pelvis WO con trastOrdered By: Bipin Mejia on 09-20-2024 [facility] Work Phone: ELECTROLYTE PANELon 09-21-19 25 Anion gap [Moles/Vol] 9 mmol/L Normal 5-15 [facility] Comment on above: Performed By: #### A MMON #### [facility] ([facility]) [address] [place] [address] VIR Chloride [Moles/Vol] 113 mmol/L High 98-109 [facility] Comment on above: Performed By: #### A MMON #### [facility] ([facility]) [address] [place] [address] VIR CO2 [Moles/Vol] 25 mmol/L Normal 22-32 [facility] Comment on above: Performed By: #### A MMON #### [facility] ([facility]) [address] [place] [address] VIR Potassium [Moles/Vol] 5.1 mmol/L High 3.5-5.0 [facility] Comment on above: Result Comment: R-Sp ecimen markedly hemolyzed, results increased Performed By: #### A MMON #### [facility] ([facility]) [address] [place] [address] VIR Sodium [Moles/Vol] 147 mmol/L High 134-[address] [facility] Comment on above: Result Comment: R-Sp ecimen markedly hemolyzed, results questionable due to hemolysis Performed By: #### A MMON #### [facility] ([facility]) [address] [place] [address] VIR Anion gap [Moles/Vol] 8 mmol/L Normal 5-15 [facility] Comment on above: Performed By: #### A MMON #### [facility] ([facility]) [address] [place] [address] VIR Chloride [Moles/Vol] 117 mmol/L High 98-109 [facility] Comment on above: Performed By: #### A MMON #### [facility] ([facility]) [address] [place] [address] VIR CO2 [Moles/Vol] 26 mmol/L Normal 22-32 [facility] Comment on above: Performed By: #### A MMON #### [facility] ([facility]) [address] [place] [address] VIR Potassium [Moles/Vol] 4.0 mmol/L Normal 3.5-5.0 [facility] Comment on above: Performed By: #### A MMON #### [facility] ([facility]) [address] [place] [address] VIR Sodium [Moles/Vol] 151 mmol/L High 134-[address] [facility] Comment on above: Performed By: #### A MMON #### [facility] ([facility]) [address] [place] [address] VIR Electrolyte panelOrdered By: Med Quiros on 09-20-2024 Anion gap [Moles/Vol] 9 mmol/L 5 - 15 mmol/L [facility] Chloride [Moles/Vol] 113 mmol/L High 98 - 10 9 mmol/L [facility] CO2 [Moles/Vol] 25 mmol/L 22 - 32 mmol/L [facility] Interpretation and review of laboratory results Abnormal [facility] Potassium [Moles/Vol] 5.1 mmol/L High 3.5 - 5.0 mmol/L [facility] Sodium [Moles/Vol] 147 mmol/L High 134 - 146 mmol/L [facility] Electrolyte panelon 09-21-19 25 Anion gap [Moles/Vol] 8 mmol/L 5 - 15 mmol/L [facility] Chloride [Moles/Vol] 117 mmol/L High 98 - 10 9 mmol/L [facility] CO2 [Moles/Vol] 26 mmol/L 22 - 32 mmol/L [facility] Interpretation and review of laboratory results Abnormal [facility] Potassium [Moles/Vol] 4 mmol/L 3.5 - 5.0 mmol/L [facility] Sodium [Moles/Vol] 151 mmol/L High 134 - 146 mmol/L [facility] IONIZED CALCIUMon 09-20-2024 IONIZED CALCIUM - ICAN 5.2 mg/dL Normal 4.5-5.3 [facility] Comment on above: Performed By: #### N UM #### [facility] ([facility]) [address] [facility] [place] [address] VIR IONIZED MAGNESIUMon 09-21-19 25 Magnesium [Moles/Vol] 0.64 mmol/L Normal 0.45-0.74 [facility] Comment on above: Performed By: #### A MMON #### [facility] ([facility]) [address] [place] [address] VIR Ionized calciumon 09-20-2024 Calcium.ionized ISE [Moles/Vol] 5.2 mg/dL 4.5 - 5.3 mg/dL [facility] Interpretation and review of laboratory results Normal [facility] Ionized magnesiumon 09-21-19 25 Interpretation and review of laboratory results Normal [facility] Magnesium Ionized ISE (Bld) [Moles/Vol] 0.64 mmol/L 0.45 - 0.74 mmol/L [facility] MAGNESIUMon 09-20-2024 Magnesium [Mass/Vol] 1.8 mg/dL Normal 1.8-2.6 [facility] Comment on above: Performed By: #### N UM #### [facility] ([facility]) [address] [place] [address] VIR MR BRAIN SYNAPTIVEon 025 MR BRAIN SYNAPTIVE MR BRAIN SYNAPTIVE History: 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 Metastasis can also present in this fashion. Finalized by Juan Antonio Lindquist MD on 09/20/2024 7:17 AM Normal [facility] MR Brainon 09-20-2024 SECTRAPACS [facility] Radiology Study observation (narrative) [facility] MR BrainOrdered By: Juan Antonio gilmore on 09-20-2024 [facility] Work Phone: Magnesiumon 09-20-2024 Magnesium [Mass/Vol] 1.8 mg/dL 1.8 - 2 .6 mg/dL [facility] No Panel Informationon 09-20 Interpretation and review of laboratory results Normal [facility] PHOSPHORUSon 09-20-2024 Phosphate [Mass/Vol] 3.5 mg/dL Normal 2.4-4.9 [facility] Comment on above: Performed By: #### N UM #### [facility] ([facility]) [address] [place] [address] VIR Phosphoruson 09-20-2024 Phosphate [Mass/Vol] 3.5 mg/dL 2.4 - 4 .9 mg/dL [facility] VANCOMYCIN, RANDOMon 025 VANCOMYCIN 10.0 ug/mL Normal 5.0-40.0 [facility] Comment on above: Order Comment: Peak 30-40 ug/mLTrough 5-20 ug/ml Performed By: #### A MMON #### [facility] ([facility]) [address] [place] [address] VIR Vancomycin, randomon 025 Interpretation and review of laboratory results Normal [facility] Vancomycin [Susc] 10 ug/mL 5.0 - 40.0 ug/mL [facility] X-ray abdomen NG Tube placem ent 1 viewon 09-20-2024 SECTRAPACS [facility] Radiology Study observation (narrative) [facility] X-ray abdomen NG Tube placem ent 1 viewOrdered By: Thad Aguero on 09-20-2024 [facility] Work Phone: XR ABD NG TUBE PLACEMENT 1 V IEWon 09-20-2024 XR ABD NG TUBE PLACEMENT 1 VIEW XR ABD NG TUBE PLACEMENT 1 VIEW Supine abdominal radiograph HISTORY: NG placement COMPARISON: None IMPRESSION: NG tube extends below the diaphragm into the stomach with tip in the distal gastric body. Finalized by Thad Aguero MD on 09/20/2024 8:04 PM Normal [facility] AMMONIAon 09-19-2024 Ammonia (P) [Moles/Vol] 24 umol/L Normal 18-72 P [facility] Comment on above: Performed By: #### A MMON #### [facility] ([facility]) [address] [place] [address] VIR MAGI SCREEN W/ REFLEXon 09-19 MAGI SCREEN W/REFLEX Negative Normal Negative [facility] Comment on above: Order Comment: Resul t did not trigger repeat Lactate, re-order if needed. Performed By: #### L ACTS #### [facility] ([facility]) [address] [place] [address] VIR APTTon 09-19-2024 aPTT Coag (PPP) [Time] 28 s Pr [facility] Interpretation and review of laboratory results Normal [facility] aPTT Coag (Bld) [Time] 28 s Normal 26-37 [facility] Comment on above: Performed By: #### P TT #### [facility] ([facility]) [address] [place] [address] VIR Ammoniaon 09-19-2024 Ammonia (P) [Moles/Vol] 24 umol/L 18 - 72 umol/L [facility] Interpretation and review of laboratory results Normal [facility] BASIC METABOLIC PANELon 05- Anion gap [Moles/Vol] 17 mmol/L High 5-15 [facility] Comment on above: Performed By: #### P INR #### [facility] ([facility]) [address] [place] [address] VIR Calcium [Mass/Vol] 9.2 mg/dL Normal 8.5-10.[address] [facility] Comment on above: Performed By: #### P INR #### [facility] ([facility]) [address] [place] [address] VIR Chloride [Moles/Vol] 120 mmol/L High 98-109 [facility] Comment on above: Performed By: #### P INR #### [facility] ([facility]) [address] [place] [address] VIR Creatinine [Mass/Vol] 7.54 mg/dL High 0.40-1.00 [facility] Comment on above: Result Comment: METH OD TRACEABLE TO IDMS STANDARD Performed By: #### P INR #### [facility] ([facility]) [address] [place] [address] VIR GFR/1.73 sq M.predicted among non-blacks MDRD (S/P/Bld) [Vol rate/Area] 6 mL/min/{1.73_m2} Low >=60 [facility] Comment on above: Result Comment: Repo rted eGFR is based on the CKD-EPI 2020 equation that does not use a race coefficient. Performed By: #### P INR #### [facility] ([facility]) [address] [place] [address] VIR Glucose [Mass/Vol] 107 mg/dL High 65-[address] [facility] Comment on above: Performed By: #### P INR #### [facility] ([facility]) [address] [place] [address] VIR Potassium [Moles/Vol] 4.5 mmol/L Normal 3.5-5.0 [facility] Comment on above: Performed By: #### P INR #### [facility] ([facility]) [address] [place] [address] VIR Sodium [Moles/Vol] 159 mmol/L High 134-[address] [facility] Comment on above: Performed By: #### P INR #### [facility] ([facility]) [address] [place] [address] VIR Urea nitrogen [Mass/Vol] 81 mg/dL High 5-23 [facility] Comment on above: Performed By: #### P INR #### [facility] ([facility]) [address] [place] [address] VIR BEDSIDE GLUCOSEon 09-19-2024 Glucose [Mass/Vol] 110 mg/dL High 65-[address] [facility] Comment on above: Performed By: #### N UM #### [facility] ([facility]) [address] [place] [address] VIR BLOOD CULTUREon 09-19-2024 Bacteria identified Cx Nom (Bld) CULTURE RESULTS STAPHYLOCOCCUS, COAGULASE NEGATIVE Staphylococcus, coagulase negative Not S. Lugdunensis Possible Collection Contamination STAPHYLOCOCCUS, COAGULASE NEGATIVE Staphylococcus, coagulase negative Not S. Lugdunensis Variant Possible Collection Contamination GRAM STAIN Gram positive cocci in clusters Abnormal [facility] Comment on above: Order Comment: *SIRS Criteria: (must display 2 without other explanation)-Temperature < 36 or >38-Pulse >90-Resp rate >20-WBC less than 4K or greater than 12KRepeat blood cultures not needed:-To document that a blood culture is a contaminant when 1 of 2 bottles is positive for a common contaminant (already listed in [facility] with the culture result)-To document clearance of gram negative bacteremia in patients with suspected urinary source who are improvingSuboptimal volume of blood collected, Results may be affected. Performed By: #### N UM #### [facility] ([facility]) [address] [place] [address] VIR Bacteria identified Cx Nom (Bld) CULTURE RESULTS NO GROWTH 5 DAYS Normal [facility] Comment on above: Order Comment: *SIRS Criteria: (must display 2 without other explanation)-Temperature < 36 or >38-Pulse >90-Resp rate >20-WBC less than 4K or greater than 12KRepeat blood cultures not needed:-To document that a blood culture is a contaminant when 1 of 2 bottles is positive for a common contaminant (already listed in [facility] with the culture result)-To document clearance of gram negative bacteremia in patients with suspected urinary source who are improving Performed By: #### N UM #### [facility] ([facility]) [address] [place] [address] VIR BLOOD GAS, ARTERIALon 2024 BASE,DEFICIT -8.0 mmol/L Low 0.0-2.0 [facility] Comment on above: Performed By: #### P INR #### [facility] ([facility]) [address] [place] [address] VIR HCO3 (Bld) [Moles/Vol] 16.8 mmol/L Low 22.0-26.0 [facility] Comment on above: Performed By: #### P INR #### [facility] ([facility]) [address] [place] [address] VIR Oxygen saturation in Blood 95.0 % Normal >90.0 [facility] Comment on above: Performed By: #### P INR #### [facility] ([facility]) [address] [place] [address] VIR PCO2 ARTERIAL 29.4 mmHg Low 35.0-45.0 [facility] Comment on above: Performed By: #### P INR #### [facility] ([facility]) [address] [place] [address] VIR PH ARTERIAL 7.364 Normal 7.350-7.45 0 [facility] Comment on above: Performed By: #### P INR #### [facility] ([facility]) [address] [place] [address] VIR PO2 ARTERIAL 78 mmHg Low 80-100 [facility] Comment on above: Performed By: #### P INR #### [facility] ([facility]) [address] [place] [address] VIR POC WILI'S TEST Pass Normal [facility] Comment on above: Performed By: #### P INR #### [facility] ([facility]) [address] [place] [address] VIR SAMPLE SITE L Rad Normal [facility] Comment on above: Performed By: #### P INR #### [facility] ([facility]) [address] [place] [address] VIR SAMPLE TYPE ARTERIAL Normal [facility] Comment on above: Performed By: #### P INR #### [facility] ([facility]) [address] [place] [address] VIR SOURCE OF OXYGEN Room Air Normal [facility] Comment on above: Performed By: #### P INR #### [facility] ([facility]) [address] [place] [address] VIR Basic Metabolic Panelon 05-0 Anion gap [Moles/Vol] 17 mmol/L High 5 - 15 mmol/L [facility] Calcium [Mass/Vol] 9.2 mg/dL 8.5 - 10. 5 mg/dL [facility] Chloride [Moles/Vol] 120 mmol/L High 98 - 10 9 mmol/L [facility] CO2 [Moles/Vol] 22 mmol/L 22 - 32 mmol/L [facility] Creatinine [Mass/Vol] 7.54 mg/dL High 0.40 - 1.00 mg/dL [facility] EGFR Non-Race Dependent 6 Low - PINF P [facility] Glucose [Mass/Vol] 107 mg/dL High 65 - 99 mg/dL [facility] Potassium [Moles/Vol] 4.5 mmol/L 3.5 - 5.0 mmol/L [facility] Sodium [Moles/Vol] 159 mmol/L High 134 - 146 mmol/L [facility] Urea nitrogen [Mass/Vol] 81 mg/dL High 5 - 23 mg/dL [facility] Bedside Glucose *Place/Obtai n serum glucose if >500 per glucometer.on 09-19-2024 Glucose [Mass/Vol] 110 mg/dL High 65 - 99 mg/dL [facility] Interpretation and review of laboratory results Abnormal [facility] Blood pathogens panel KELSEI+no n-probe (Pos bld culture)Ordered By: Dion Shipley on 09-19-2024 Interpretation and review of laboratory results Abnormal [facility] mecA/C gene PCR Detected Abnormal Not Detected [facility] Staphylococcus epidermidis PCR Detected Abnormal Not Detected [facility] CBC WITH AUTO DIFFERENTIALon 09-19-2024 BASOPHILS ABSOLUTE COUNT (10*3/UL) BY AUTOMATED COUNT 0.1 10*3/uL Normal [facility] Comment on above: Performed By: #### P INR #### [facility] ([facility]) [address] [place] [address] VIR BASOPHILS RELATIVE PERCENT BY AUTOMATED COUNT 0.8 % Normal [facility] Comment on above: Performed By: #### P INR #### [facility] ([facility]) [address] [place] [address] VIR CELLAVISION DIFFERENTIAL TYPE AUTOMATED DIFFERENTIAL Normal [facility] Comment on above: Performed By: #### P INR #### [facility] ([facility]) [address] [place] [address] VIR Eosinophils (Bld) [#/Vol] 0.3 10*3/uL Normal [facility] Comment on above: Performed By: #### P INR #### [facility] ([facility]) [address] [place] [address] VIR EOSINOPHILS RELATIVE PERCENT BY AUTOMATED COUNT 2.8 % Normal [facility] Comment on above: Performed By: #### P INR #### [facility] ([facility]) [address] [place] [address] VIR Erythrocyte distribution width (RBC) [Ratio] 15.6 % High 11.5-15 [facility] Comment on above: Performed By: #### P INR #### [facility] ([facility]) [address] [place] [address] VIR Hematocrit (Bld) [Volume fraction] 34.9 % Low 35-47 [facility] Comment on above: Performed By: #### P INR #### [facility] ([facility]) [address] [place] [address] VIR Hemoglobin (Bld) [Mass/Vol] 11.4 g/dL Low 11.7-15.5 [facility] Comment on above: Performed By: #### P INR #### [facility] ([facility]) [address] [place] [address] VIR LYMPHOCYTES ABSOLUTE COUNT (10*3/UL) BY AUTOMATED COUNT 0.7 10*3/uL [facility] Comment on above: Performed By: #### P INR #### [facility] ([facility]) [address] [place] [address] VIR LYMPHOCYTES RELATIVE PERCENT BY AUTOMATED COUNT 7.9 % Normal [facility] Comment on above: Performed By: #### P INR #### [facility] ([facility]) [address] [place] [address] VIR MCH (RBC) [Entitic mass] 27.0 pg Normal 27-34 [facility] Comment on above: Performed By: #### P INR #### [facility] ([facility]) [address] [place] [address] VIR MCHC (RBC) [Mass/Vol] 32.8 g/dL Normal 32-36 [facility] Comment on above: Performed By: #### P INR #### [facility] ([facility]) [address] [place] [address] VIR MCV (RBC) [Entitic vol] 82 fL Normal 80-100 [facility] Comment on above: Performed By: #### P INR #### [facility] ([facility]) [address] [place] [address] VIR MONOCYTES ABSOLUTE COUNT (10*3/UL) BY AUTOMATED COUNT 0.8 10*3/uL Normal [facility] Comment on above: Performed By: #### P INR #### [facility] ([facility]) [address] [place] [address] VIR MONOCYTES RELATIVE PERCENT BY AUTOMATED COUNT 8.9 % Normal [facility] Comment on above: Performed By: #### P INR #### [facility] ([facility]) [address] [place] [address] VIR NEUTROPHILS ABSOLUTE COUNT BY AUTOMATED COUNT 7.3 10*3/uL Normal [facility] Comment on above: Performed By: #### P INR #### [facility] ([facility]) [address] [place] [address] VIR NEUTROPHILS RELATIVE PERCENT BY AUTOMATED COUNT 79.6 % Normal [facility] Comment on above: Performed By: #### P INR #### [facility] ([facility]) [address] [place] [address] VIR Platelet mean volume (Bld) [Entitic vol] 9.2 fL Normal 7-12 [facility] Comment on above: Performed By: #### P INR #### [facility] ([facility]) [address] [place] [address] VIR Platelets (Bld) [#/Vol] 189 10*3/uL Normal 150-450 [facility] Comment on above: Performed By: #### P INR #### [facility] ([facility]) [address] [place] [address] VIR RBC COUNT 4.23 X10E12/L Normal 3.8-5.2 [facility] Comment on above: Performed By: #### P INR #### [facility] ([facility]) [address] [place] [address] VIR WBC (Bld) [#/Vol] 9.2 10*3/uL Normal 4-[address] [facility] Comment on above: Performed By: #### P INR #### [facility] ([facility]) [address] [place] [address] VIR BASOPHILS ABSOLUTE COUNT (10*3/UL) BY AUTOMATED COUNT 0.1 10*3/uL Normal [facility] Comment on above: Performed By: #### C BCA #### [facility] ([facility]) [address] [facility] [address] [place] [address] VIR BASOPHILS RELATIVE PERCENT BY AUTOMATED COUNT 0.6 % Normal [facility] Comment on above: Performed By: #### C BCA #### [facility] ([facility]) [address] [place] [address] VIR CELLAVISION DIFFERENTIAL TYPE AUTOMATED DIFFERENTIAL Normal [facility] Comment on above: Performed By: #### C BCA #### [facility] ([facility]) [address] [place] [address] VIR Eosinophils (Bld) [#/Vol] 0.4 10*3/uL Normal [facility] Comment on above: Performed By: #### C BCA #### [facility] ([facility]) [address] [place] [address] VIR EOSINOPHILS RELATIVE PERCENT BY AUTOMATED COUNT 3.4 % Normal [facility] Comment on above: Performed By: #### C BCA #### [facility] ([facility]) [address] [place] [address] VIR Erythrocyte distribution width (RBC) [Ratio] 15.7 % High 11.5-15 [facility] Comment on above: Performed By: #### C BCA #### [facility] ([facility]) [address] [facility] [address] [place] [address] VIR Hematocrit (Bld) [Volume fraction] 34.9 % Low 35-47 [facility] Comment on above: Performed By: #### C BCA #### [facility] ([facility]) [address] [facility] [address] [place] [address] VIR Hemoglobin (Bld) [Mass/Vol] 11.5 g/dL Low 11.7-15.5 [facility] Comment on above: Performed By: #### C BCA #### [facility] ([facility]) [address] [facility] [address] [place] [address] VIR LYMPHOCYTES ABSOLUTE COUNT (10*3/UL) BY AUTOMATED COUNT 0.8 10*3/uL Normal [facility] Comment on above: Performed By: #### C BCA #### [facility] ([facility]) [address] [place] [address] VIR LYMPHOCYTES RELATIVE PERCENT BY AUTOMATED COUNT 7.5 % Normal [facility] Comment on above: Performed By: #### C BCA #### [facility] ([facility]) [address] [place] [address] VIR MCH (RBC) [Entitic mass] 27.7 pg Normal 27-34 [facility] Comment on above: Performed By: #### C BCA #### [facility] ([facility]) [address] [place] [address] VIR MCHC (RBC) [Mass/Vol] 33.1 g/dL Normal 32-36 [facility] Comment on above: Performed By: #### C BCA #### [facility] ([facility]) [address] [place] [address] VIR MCV (RBC) [Entitic vol] 84 fL Normal 80-100 P [facility] Comment on above: Performed By: #### C BCA #### [facility] ([facility]) [address] [place] [address] VIR MONOCYTES ABSOLUTE COUNT (10*3/UL) BY AUTOMATED COUNT 0.9 10*3/uL Normal [facility] Comment on above: Performed By: #### C BCA #### [facility] ([facility]) [address] [place] [address] VIR MONOCYTES RELATIVE PERCENT BY AUTOMATED COUNT 9.2 % Normal [facility] Comment on above: Performed By: #### C BCA #### [facility] ([facility]) [address] [place] [address] VIR NEUTROPHILS ABSOLUTE COUNT BY AUTOMATED COUNT 8.2 10*3/uL Normal [facility] Comment on above: Performed By: #### C BCA #### [facility] ([facility]) [address] [place] [address] VIR NEUTROPHILS RELATIVE PERCENT BY AUTOMATED COUNT 79.3 % Normal [facility] Comment on above: Performed By: #### C BCA #### [facility] ([facility]) [address] [place] [address] VIR Platelet mean volume (Bld) [Entitic vol] 9.2 fL Normal 7-12 [facility] Comment on above: Performed By: #### C BCA #### [facility] ([facility]) [address] [place] [address] VIR Platelets (Bld) [#/Vol] 199 10*3/uL Normal 150-450 [facility] Comment on above: Performed By: #### C BCA #### [facility] ([facility]) [address] [place] [address] VIR RBC COUNT 4.16 X10E12/L Normal 3.8-5.2 [facility] Comment on above: Performed By: #### C BCA #### [facility] ([facility]) [address] [place] [address] VIR WBC (Bld) [#/Vol] 10.3 10*3/uL Normal 4-[address] [facility] Comment on above: Performed By: #### C BCA #### [facility] ([facility]) [address] [place] [address] VIR CBC auto differentialon 05-0 -2024 Basophils (Bld) [#/Vol] 0.1 10*3/uL [facility] Basophils/100 WBC (Bld) 0.8 % [facility] Differential cell count method Nom (Bld) AUTOMATED DIFFERENTIAL [facility] Eosinophils (Bld) [#/Vol] 0.3 10*3/uL [facility] Eosinophils/100 WBC (Bld) 2.8 % [facility] Erythrocyte distribution width (RBC) [Ratio] 15.6 % High 11.5 - 15 % [facility] Hematocrit (Bld) [Volume fraction] 34.9 % Low 35 - 47 % [facility] Hemoglobin (Bld) [Mass/Vol] 11.4 g/dL Low 11.7 - 15.5 g/dL [facility] Interpretation and review of laboratory results Abnormal [facility] Lymphocytes (Bld) [#/Vol] 0.7 10*3/uL [facility] Lymphocytes/100 WBC (Bld) 7.9 % [facility] MCH (RBC) [Entitic mass] 27 pg 27 - 34 pg [facility] MCHC (RBC) [Mass/Vol] 32.8 g/dL 32 - 3 6 g/dL [facility] MCV (RBC) [Entitic vol] 82 fL 80 - 100 fL [facility] Monocytes (Bld) [#/Vol] 0.8 10*3/uL [facility] Monocytes/100 WBC (Bld) 8.9 % P [facility] Neutrophils (Bld) [#/Vol] 7.3 10*3/uL [facility] Neutrophils/100 WBC (Bld) 79.6 % [facility] Platelet mean volume (Bld) [Entitic vol] 9.2 fL 7 - 12 fL [facility] Platelets (Bld) [#/Vol] 189 10*3/uL [facility] RBC (Bld) [#/Vol] 4.23 10*6/uL [facility] WBC LM Ql (Sput) 9.2 [facility] Basophils (Bld) [#/Vol] 0.1 10*3/uL [facility] Basophils/100 WBC (Bld) 0.6 % P [facility] Differential cell count method Nom (Bld) AUTOMATED DIFFERENTIAL [facility] Eosinophils (Bld) [#/Vol] 0.4 10*3/uL [facility] Eosinophils/100 WBC (Bld) 3.4 % [facility] Erythrocyte distribution width (RBC) [Ratio] 15.7 % High 11.5 - 15 % [facility] Hematocrit (Bld) [Volume fraction] 34.9 % Low 35 - 47 % [facility] Hemoglobin (Bld) [Mass/Vol] 11.5 g/dL Low 11.7 - 15.5 g/dL [facility] Interpretation and review of laboratory results Abnormal [facility] Lymphocytes (Bld) [#/Vol] 0.8 10*3/uL [facility] Lymphocytes/100 WBC (Bld) 7.5 % [facility] MCH (RBC) [Entitic mass] 27.7 pg 27 - 34 pg [facility] MCHC (RBC) [Mass/Vol] 33.1 g/dL 32 - 3 6 g/dL [facility] MCV (RBC) [Entitic vol] 84 fL 80 - 100 fL [facility] Monocytes (Bld) [#/Vol] 0.9 10*3/uL [facility] Monocytes/100 WBC (Bld) 9.2 % P [facility] Neutrophils (Bld) [#/Vol] 8.2 10*3/uL [facility] Neutrophils/100 WBC (Bld) 79.3 % [facility] Platelet mean volume (Bld) [Entitic vol] 9.2 fL 7 - 12 fL [facility] Platelets (Bld) [#/Vol] 199 10*3/uL [facility] RBC (Bld) [#/Vol] 4.16 10*6/uL [facility] WBC LM Ql (Sput) 10.3 [facility] CK TOTALon 09-19-2024 CPK 18 U/L Low 24-170 [facility] Comment on above: Performed By: #### P TT #### [facility] ([facility]) [address] [place] [address] VIR CPK 18 U/L Low 24-170 [facility] Comment on above: Performed By: #### C PK #### [facility] ([facility]) [address] [place] [address] VIR CK Totalon 09-19-2024 CK [Catalytic activity/Vol] 18 U/L Low 24 - 170 U/L [facility] CK [Catalytic activity/Vol] 18 U/L Low 24 - 170 U/L [facility] Interpretation and review of laboratory results Abnormal [facility] COMPLEMENT PROFILE (C3 AND C 4)on 09-19-2024 COMPLEMENT C3 196 mg/dL High 86-184 [facility] Comment on above: Performed By: #### P TT #### [facility] ([facility]) [address] [place] [address] VIR COMPLEMENT C4 42 mg/dL Normal 16-47 [facility] Comment on above: Performed By: #### P TT #### [facility] ([facility]) [address] [place] [address] VIR COMPREHENSIVE METABOLIC PANE Antoni 09-19-2024 Albumin [Mass/Vol] 3.4 g/dL Normal 3.2-5.[address] [facility] Comment on above: Performed By: #### C MP #### [facility] ([facility]) [address] [place] [address] VIR ALP [Catalytic activity/Vol] 73 U/L Normal 39-130 [facility] Comment on above: Performed By: #### C MP #### [facility] ([facility]) [address] [place] [address] VIR ALT [Catalytic activity/Vol] 4 U/L Normal <=31 [facility] Comment on above: Performed By: #### C MP #### [facility] ([facility]) [address] [place] [address] VIR Anion gap [Moles/Vol] 17 mmol/L High 5-15 [facility] Comment on above: Performed By: #### C MP #### [facility] ([facility]) [address] [place] [address] VIR AST [Catalytic activity/Vol] 8 U/L Normal <=41 [facility] Comment on above: Performed By: #### C MP #### [facility] ([facility]) [address] [place] [address] VIR Bilirubin [Mass/Vol] 0.4 mg/dL Normal 0.3-1.2 [facility] Comment on above: Performed By: #### C MP #### [facility] ([facility]) [address] [place] [address] VIR Calcium [Mass/Vol] 9.3 mg/dL Normal 8.5-10.[address] [facility] Comment on above: Performed By: #### C MP #### [facility] ([facility]) [address] [place] [address] VIR Chloride [Moles/Vol] 120 mmol/L High 98-109 [facility] Comment on above: Performed By: #### C MP #### [facility] ([facility]) [address] [place] [address] VIR CO2 [Moles/Vol] 14 mmol/L Low 22-32 [facility] Comment on above: Performed By: #### C MP #### [facility] ([facility]) [address] [place] [address] VIR Creatinine [Mass/Vol] 9.65 mg/dL High 0.40-1.00 [facility] Comment on above: Result Comment: METH OD TRACEABLE TO IDMS STANDARD Performed By: #### C MP #### [facility] ([facility]) [address] [place] [address] VIR GFR/1.73 sq M.predicted among non-blacks MDRD (S/P/Bld) [Vol rate/Area] 4 mL/min/{1.73_m2} Low >=60 [facility] Comment on above: Result Comment: Repo rted eGFR is based on the CKD-EPI 2020 equation that does not use a race coefficient. Performed By: #### C MP #### [facility] ([facility]) [address] [place] [address] VIR Glucose [Mass/Vol] 103 mg/dL High 65-[address] [facility] Comment on above: Performed By: #### C MP #### [facility] ([facility]) [address] [place] [address] VIR Potassium [Moles/Vol] 4.6 mmol/L Normal 3.5-5.0 [facility] Comment on above: Performed By: #### C MP #### [facility] ([facility]) [address] [place] [address] VIR Protein [Mass/Vol] 6.8 g/dL Normal 6.0-8.[address] [facility] Comment on above: Performed By: #### C MP #### [facility] ([facility]) [address] [place] [address] VIR Sodium [Moles/Vol] 151 mmol/L High 134-[address] [facility] Comment on above: Performed By: #### C MP #### [facility] ([facility]) [address] [place] [address] VIR Urea nitrogen [Mass/Vol] 91 mg/dL High 5-23 [facility] Comment on above: Performed By: #### C MP #### [facility] ([facility]) [address] [place] [address] VIR Complement profile (C3 AND C 4)on 09-19-2024 Complement C3 [Mass/Vol] 196 mg/dL High 86 - 184 mg/dL [facility] Complement C4 [Mass/Vol] 42 mg/dL 16 - 47 mg/dL [facility] Comprehensive metabolic pane antoni 09-19-2024 Albumin [Mass/Vol] 3.4 g/dL 3.2 - 5.3 g/dL [facility] ALP [Catalytic activity/Vol] 73 U/L 39 - 130 U/L [facility] ALT No additional P-5'-P [Catalytic activity/Vol] 4 U/L NINF - 31 U/L [facility] Anion gap [Moles/Vol] 17 mmol/L High 5 - 15 mmol/L [facility] AST [Catalytic activity/Vol] 8 U/L NINF - 41 U/L [facility] Bilirubin [Mass/Vol] 0.4 mg/dL 0.3 - 1 .2 mg/dL [facility] Calcium [Mass/Vol] 9.3 mg/dL 8.5 - 10. 5 mg/dL [facility] Chloride [Moles/Vol] 120 mmol/L High 98 - 10 9 mmol/L [facility] CO2 [Moles/Vol] 14 mmol/L Low 22 - 32 mmol/L [facility] Creatinine [Mass/Vol] 9.65 mg/dL High 0.40 - 1.00 mg/dL [facility] EGFR Non-Race Dependent 4 Low - PINF P [facility] Glucose [Mass/Vol] 103 mg/dL High 65 - 99 mg/dL [facility] Interpretation and review of laboratory results Abnormal [facility] Potassium [Moles/Vol] 4.6 mmol/L 3.5 - 5.0 mmol/L [facility] Protein [Mass/Vol] 6.8 g/dL 6.0 - 8.0 g/dL [facility] Sodium [Moles/Vol] 151 mmol/L High 134 - 146 mmol/L [facility] Urea nitrogen [Mass/Vol] 91 mg/dL High 5 - 23 mg/dL [facility] ECG 12 leadOrdered By: Charley Cohen on 09-19-2024 [facility] ELECTROLYTE PANELon 09-20-19 25 Anion gap [Moles/Vol] 11 mmol/L Normal 5-15 [facility] Comment on above: Performed By: #### N UM #### [facility] ([facility]) [address] [place] [address] VIR Chloride [Moles/Vol] 119 mmol/L High 98-109 [facility] Comment on above: Performed By: #### N UM #### [facility] ([facility]) [address] [place] [address] VIR CO2 [Moles/Vol] 24 mmol/L Normal 22-32 [facility] Comment on above: Performed By: #### N UM #### [facility] ([facility]) [address] [place] [address] VIR Potassium [Moles/Vol] 4.3 mmol/L Normal 3.5-5.0 [facility] Comment on above: Performed By: #### N UM #### [facility] ([facility]) [address] [place] [address] VIR Sodium [Moles/Vol] 154 mmol/L High 134-[address] [facility] Comment on above: Performed By: #### N UM #### [facility] ([facility]) [address] [place] [address] VIR Anion gap [Moles/Vol] 13 mmol/L Normal 5-15 [facility] Comment on above: Performed By: #### N UM #### [facility] ([facility]) [address] [place] [address] VIR Chloride [Moles/Vol] 118 mmol/L High 98-109 [facility] Comment on above: Performed By: #### N UM #### [facility] ([facility]) [address] [place] [address] VIR CO2 [Moles/Vol] 21 mmol/L Low 22-32 [facility] Comment on above: Performed By: #### N UM #### [facility] ([facility]) [address] [place] [address] VIR Potassium [Moles/Vol] 4.5 mmol/L Normal 3.5-5.0 [facility] Comment on above: Performed By: #### N UM #### [facility] ([facility]) [address] [place] [address] VIR Sodium [Moles/Vol] 152 mmol/L High 134-[address] [facility] Comment on above: Performed By: #### N UM #### [facility] ([facility]) [address] [place] [address] VIR Anion gap [Moles/Vol] 15 mmol/L Normal 5-15 [facility] Comment on above: Performed By: #### P INR #### [facility] ([facility]) [address] [place] [address] VIR Chloride [Moles/Vol] 119 mmol/L High 98-109 [facility] Comment on above: Performed By: #### P INR #### [facility] ([facility]) [address] [place] [address] VIR CO2 [Moles/Vol] 22 mmol/L Normal 22-32 [facility] Comment on above: Performed By: #### P INR #### [facility] ([facility]) [address] [place] [address] VIR Potassium [Moles/Vol] 4.3 mmol/L Normal 3.5-5.0 [facility] Comment on above: Performed By: #### P INR #### [facility] ([facility]) [address] [place] [address] VIR Sodium [Moles/Vol] 156 mmol/L High 134-[address] [facility] Comment on above: Performed By: #### P INR #### [facility] ([facility]) [address] [place] [address] VIR Electrolyte panelon 09-20-19 25 Anion gap [Moles/Vol] 11 mmol/L 5 - 15 mmol/L [facility] Chloride [Moles/Vol] 119 mmol/L High 98 - 10 9 mmol/L [facility] CO2 [Moles/Vol] 24 mmol/L 22 - 32 mmol/L [facility] Interpretation and review of laboratory results Abnormal [facility] Potassium [Moles/Vol] 4.3 mmol/L 3.5 - 5.0 mmol/L [facility] Sodium [Moles/Vol] 154 mmol/L High 134 - 146 mmol/L [facility] Anion gap [Moles/Vol] 13 mmol/L 5 - 15 mmol/L [facility] Chloride [Moles/Vol] 118 mmol/L High 98 - 10 9 mmol/L [facility] CO2 [Moles/Vol] 21 mmol/L Low 22 - 32 mmol/L [facility] Interpretation and review of laboratory results Abnormal [facility] Potassium [Moles/Vol] 4.5 mmol/L 3.5 - 5.0 mmol/L [facility] Sodium [Moles/Vol] 152 mmol/L High 134 - 146 mmol/L [facility] Anion gap [Moles/Vol] 15 mmol/L 5 - 15 mmol/L [facility] Chloride [Moles/Vol] 119 mmol/L High 98 - 10 9 mmol/L [facility] CO2 [Moles/Vol] 22 mmol/L 22 - 32 mmol/L [facility] Interpretation and review of laboratory results Abnormal [facility] Potassium [Moles/Vol] 4.3 mmol/L 3.5 - 5.0 mmol/L [facility] Sodium [Moles/Vol] 156 mmol/L High 134 - 146 mmol/L [facility] Extra Urineon 09-19-2024 Extra Tube Auto Resulted [facility] FERRITINon 09-19-2024 Ferritin [Mass/Vol] 130 ng/mL Normal 11-307 [facility] Comment on above: Performed By: #### P TT #### [facility] ([facility]) [address] [place] [address] VIR FOLATEon 09-19-2024 FOLIC ACID 13.1 ng/mL Normal >5.8 [facility] Comment on above: Performed By: #### P TT #### [facility] ([facility]) [address] [place] [address] VIR Ferritinon 09-19-2024 Ferritin [Mass/Vol] 130 ng/mL 11 - 307 ng/mL [facility] Interpretation and review of laboratory results Normal [facility] Folateon 09-19-2024 Folate [Mass/Vol] 13.1 ng/mL 5.8 - PINF ng/mL [facility] Interpretation and review of laboratory results Normal [facility] GLOMERULAR BASEMENT MEMBRANE IGG ABon 09-19-2024 GBM IGG AB <^0.2 Normal <1.0 [facility] Comment on above: Performed By: #### L ACTS #### [facility] ([facility]) [address] [place] [address] VIR Gas panel (BldA)on Arterial patency Wrist artery --pre arterial puncture Pass [facility] Base deficit (Bld) [Moles/Vol] -8 mmol/L Low 0.0 - 2.0 mmol/L [facility] CO2 (Bld) [Partial pressure] 29.4 mm[Hg] Low [facility] HCO3 (Bld) [Moles/Vol] 16.8 mmol/L Low 22.0 - 26.0 mmol/L [facility] Interpretation and review of laboratory results Abnormal [facility] Oxygen (Bld) [Partial pressure] 78 mm[Hg] Low [facility] Oxygen therapy source and amount [CARE] Room Air [facility] pH (Bld) 7.364 [pH] 7.350 - 7.450 [facility] Specimen site Narrative Verena Saavedra [facility] Specimen type Nom (Spec) ARTERIAL [facility] HEMOGLOBIN A1Con 09-19-2024 Glucose [Mass/Vol] 108 mg/dL Normal [facility] Comment on above: Performed By: #### P INR #### [facility] ([facility]) [address] [place] [address] VIR HbA1c (Bld) [Mass fraction] 5.4 % Normal 4.4-5.6 [facility] Comment on above: Result Comment: ADA Guidelines Result HgbA1c Normal : less than 5.7 % Prediabetes : 5.7 % to 6.4 % Diabetes : > 6.4 % Use with caution in patients with abnormal hemoglobin variants as the half-life of red blood cells and in vivo glycation rates are affected. Performed By: #### P INR #### [facility] ([facility]) [address] [place] [address] VIR Hemoglobin A1con 09-19-2024 Average glucose Estimated from glycated hemoglobin (Bld) [Mass/Vol] 108 mg/dL [facility] HbA1c (Bld) [Mass fraction] 5.4 % 4.4 - 5.6 % [facility] IRON AND TIBCon 09-19-2024 Iron [Mass/Vol] 56 ug/dL Normal 50-170 [facility] Comment on above: Performed By: #### P TT #### [facility] ([facility]) [address] [place] [address] VIR IRON BINDING 309 ug/dL Normal 250-425 [facility] Comment on above: Performed By: #### P TT #### [facility] ([facility]) [address] [place] [address] VIR IRON SATURATION 18 % SATURATION Normal 15-50 [facility] Comment on above: Performed By: #### P TT #### [facility] ([facility]) [address] [place] [address] VIR Transferrin [Mass/Vol] 221 mg/dL Normal 168-336 [facility] Comment on above: Performed By: #### P TT #### [facility] ([facility]) [address] [place] [address] VIR Iron and TIBCon 09-19-2024 Interpretation and review of laboratory results Normal [facility] Iron [Mass/Vol] 56 ug/dL 50 - 170 ug/dL [facility] Iron binding capacity [Mass/Vol] 309 ug/dL 250 - 425 ug/dL [facility] Iron saturation [Mass fraction] 18 [facility] Transferrin [Mass or moles/Vol] 221 mg/dL 168 - 336 mg/dL [facility] LACTATE W/ REFLEXon 09-20-19 25 LACTATE W/REFLEX 0.7 mmol/L Normal 0.4-2.0 [facility] Comment on above: Order Comment: Resul t did not trigger repeat Lactate, re-order if needed. Performed By: #### L ACTS #### [facility] ([facility]) [address] [place] [address] VIR Laboratory - Chemistry and C hemistry - challengeon 09-19-2024 Creatinine (U) [Mass/Vol] 83.54 mg/dL [facility] Lactate w/ Reflexon 09-20-19 25 Interpretation and review of laboratory results Normal [facility] Lactate (P nadine) [Moles/Vol] 0.7 mmol/L 0.4 - 2.0 mmol/L [facility] MAGNESIUMon 09-19-2024 Magnesium [Mass/Vol] 2.4 mg/dL Normal 1.8-2.6 [facility] Comment on above: Performed By: #### P INR #### [facility] ([facility]) [address] [place] [address] VIR MYELOPEROXIDASE ABon 025 MYELOPEROXIDASE AB <^0.2 Normal <1.[address] [facility] Comment on above: Performed By: #### L ACTS #### [facility] ([facility]) [address] [place] [address] VIR MYOGLOBIN, SERUMon 5 SERUM MYOGLOBIN 33.4 ng/mL Normal 14.3-65.8 [facility] Comment on above: Performed By: #### P INR #### [facility] ([facility]) [address] [place] [address] VIR Magnesiumon 09-19-2024 Magnesium [Mass/Vol] 2.4 mg/dL 1.8 - 2 .6 mg/dL [facility] Myoglobin, serumon Interpretation and review of laboratory results Normal [facility] Myoglobin [Mass/Vol] 33.4 ng/mL 14.3 - 65.8 ng/mL [facility] No Panel Informationon 09-19 Interpretation and review of laboratory results Normal [facility] Interpretation and review of laboratory results Abnormal [facility] PHOSPHORUSon 09-19-2024 Phosphate [Mass/Vol] 5.8 mg/dL High 2.4-4.9 [facility] Comment on above: Performed By: #### P INR #### [facility] ([facility]) [address] [place] [address] VIR POCT NURSING URINE MACROSCOP IC UAon 09-19-2024 BILIRUBIN SORIN Negative Normal Negative [facility] Comment on above: Performed By: #### N UM #### [facility] ([facility]) [address] [place] [address] VIR BLOOD/HGB SORIN Large Abnormal Negative [facility] Comment on above: Performed By: #### N UM #### [facility] ([facility]) [address] [place] [address] VIR GLUCOSE SORIN Negative Normal Negative [facility] Comment on above: Performed By: #### N UM #### [facility] ([facility]) [address] [place] [address] VIR KETONES SORIN Negative Normal Negative [facility] Comment on above: Performed By: #### N UM #### [facility] ([facility]) [address] [place] [address] VIR LEUKOCYTE ESTERASE SORIN Negative Normal Negative [facility] Comment on above: Performed By: #### N UM #### [facility] ([facility]) [address] [place] [address] VIR NITRITE SORIN Negative Normal Negative [facility] Comment on above: Performed By: #### N UM #### [facility] ([facility]) [address] [place] [address] VIR PH SORIN 5.5 Normal 5.0, 6.0, 6.5, 7.0, 7.5, 8.0, 8.5, 5.5 [facility] Comment on above: Performed By: #### N UM #### [facility] ([facility]) [address] [place] [address] VIR PROTEIN SORIN 100 mg/dL Abnormal Negative [facility] Comment on above: Performed By: #### N UM #### [facility] ([facility]) [address] [facility] [place] [address] VIR SPECIFIC GRAVITY SORIN 1.020 Normal 1.010, 1.015, 1.020, 1.025 [facility] Comment on above: Performed By: #### N UM #### [facility] ([facility]) [address] [facility] [place] [address] VIR UROBILINOGEN SORIN 0.2 E.U./dL Normal 0.2 E.U./dL, 1.0 E.U./dL [facility] Comment on above: Performed By: #### N UM #### [facility] ([facility]) [address] [place] [address] VIR POCT Nursing Urine Macroscop ic UAon 09-19-2024 Bilirubin Ql (U) Negative Negative [facility] Glucose [Mass/Vol] Negative Negative [facility] Hemoglobin Ql (U) Large Abnormal Negative [facility] Interpretation and review of laboratory results Abnormal [facility] Ketones (U) [Mass/Vol] Negative Negative [facility] Leukocyte esterase Test strip Ql (U) Negative Negative [facility] Nitrite Ql (U) Negative Negative [facility] pH (U) 5.5 [pH] 5.0, 6.0, 6.5, 7.0, 7.5, 8.0, 8.5, 5.5 [facility] Protein Ql (U) 100 mg/dL Abnormal Negative [facility] Specific gravity (U) [Rel density] 1.020 1.010, 1.015, 1.020, 1.025 [facility] Urobilinogen Qn (U) [id number] {Mirza'U}/dL 0.2 E.U./dL, 1.0 E.U./dL [facility] PROCALCITONINon 09-19-2024 PROCALCITONIN 0.12 ng/mL High <0.05 [facility] Comment on above: Order Comment: <0.50 ng/mL - Low risk of severe sepsis and/or septic shock.<2.00 ng/mL - Recommend retesting within 6-24 hours.>2.00 ng/mL - High risk of sepsis and/or septic shock. Performed By: #### P TT #### [facility] ([facility]) [address] [place] [address] VIR PROTEIN CREAT RATIOon 2024 U/PRO/SHIPPING/RECEIVING MANAGER RATIO CALC 1.62 High <=0.20 [facility] Comment on above: Order Comment: Nephr otic Syndrome is associated with ratios >3.5 Performed By: #### P INR #### [facility] ([facility]) [address] [place] [address] VIR URINE PROTEIN, RANDOM (MG/L) 1350 mg/L High <120 [facility] Comment on above: Order Comment: Nephr otic Syndrome is associated with ratios >3.5 Performed By: #### P INR #### [facility] ([facility]) [address] [place] [address] VIR PROTEINASE 3 AB PR3on 2024 PROTEINASE 3 IGG AB <^0.2 Normal <1.[address] [facility] Comment on above: Performed By: #### L ACTS #### [facility] ([facility]) [address] [place] [address] VIR PROTIME AND INRon 09-19-2024 INR 1.2 Normal 0.9-1.2 [facility] Comment on above: Performed By: #### P INR #### [facility] ([facility]) [address] [place] [address] VIR PT Coag (PPP) [Time] 14.0 s High 9.8-13.2 [facility] Comment on above: Performed By: #### P INR #### [facility] ([facility]) [address] [place] [address] VIR Phosphoruson 09-19-2024 Phosphate [Mass/Vol] 5.8 mg/dL High 2.4 - 4 .9 mg/dL [facility] Procalcitoninon 09-19-2024 Procalcitonin IA [Mass/Vol] 0.12 ng/mL High NINF - 0.05 ng/mL [facility] Protein creat ratioon 2024 Interpretation and review of laboratory results Abnormal [facility] Protein (U) [Mass/Vol] 1350 mg/L High NINF - 120 mg/L [facility] Protein/Creatinine (U) [Ratio] 1.62 High NINF - 0.20 [facility] Protime & INRon 09-19-2024 INR Coag (Platelet poor plasma or blood) [Relative time] 1.2 0.9 - 1.2 [facility] Interpretation and review of laboratory results Abnormal [facility] PT Coag (PPP) [Time] 14 s High [facility] SODIUM, URINE, RANDOMon 05 Sodium (U) [Moles/Vol] 69 mmol/L Normal [facility] Comment on above: Performed By: #### U LUDMILA #### [facility] ([facility]) [address] [place] [address] VIR Sodium, urine, randomon Sodium (U) [Moles/Vol] 69 mmol/L [facility] THYROID PROFILE INCLUDES TSH FT4on 09-19-2024 Free T4 [Mass/Vol] 0.86 ng/dL Normal 0.61-1.[address] [facility] Comment on above: Performed By: #### P TT #### [facility] ([facility]) [address] [place] [address] VIR TSH 2.80 uIU/mL Normal 0.49-4.67 [facility] Comment on above: Performed By: #### P TT #### [facility] ([facility]) [address] [place] [address] VIR TROP I, HIGH SENSITIVITY 1 H OURon 09-19-2024 TROPONIN I, HIGH SENSITIVITY 10 ng/L Normal <16 [facility] Comment on above: Performed By: #### T NIHS1 #### [facility] ([facility]) [address] [place] [address] VIR TROPONIN I, HIGH SENSITIVITY 0 HOURon 09-19-2024 TROPONIN I, HIGH SENSITIVITY 11 ng/L Normal <16 [facility] Comment on above: Performed By: #### P INR #### [facility] ([facility]) [address] [place] [address] VIR Thyroid profile includes TSH FT4on 09-19-2024 Free T4 [Mass/Vol] 0.86 ng/dL 0.61 - 1.60 ng/dL [facility] TSH Qn 2.8 m[IU]/L [facility] Troponin I, High Sensitivity 0 Houron 09-19-2024 Interpretation and review of laboratory results Normal [facility] Troponin I.cardiac High sensitivity method [Mass/Vol] 11 ng/L NINF - 16 ng/L [facility] Troponin I, High Sensitivity 1 Houron 09-19-2024 Interpretation and review of laboratory results Normal [facility] Troponin I.cardiac High sensitivity method [Mass/Vol] 10 ng/L NINF - 16 ng/L [facility] URINALYSISon 09-19-2024 Bilirubin Ql (U) Negative Normal Negative [facility] Comment on above: Order Comment: Urine received without preservative. Delays in transport may affect results. Interpret with caution. A clinical correlation is recommended. Performed By: #### P TT #### [facility] ([facility]) [address] [place] [address] VIR BLOOD/HGB Moderate Abnormal Negative [facility] Comment on above: Order Comment: Urine received without preservative. Delays in transport may affect results. Interpret with caution. A clinical correlation is recommended. Performed By: #### P TT #### [facility] ([facility]) [address] [place] [address] VIR Color (U) Colorless Normal Yellow, Colorless [facility] Comment on above: Order Comment: Urine received without preservative. Delays in transport may affect results. Interpret with caution. A clinical correlation is recommended. Performed By: #### P TT #### [facility] ([facility]) [address] [place] [address] VIR Glucose Ql (U) Negative Normal Negative [facility] Comment on above: Order Comment: Urine received without preservative. Delays in transport may affect results. Interpret with caution. A clinical correlation is recommended. Performed By: #### P TT #### [facility] ([facility]) [address] [place], [place] [address], [place] [address] VIR Ketones Ql (U) Negative Normal Negative [facility] Comment on above: Order Comment: Urine received without preservative. Delays in transport may affect results. Interpret with caution. A clinical correlation is recommended. Performed By: #### P TT #### [facility] ([facility]) [address] [place] [address] VIR Leukocyte esterase Test strip Ql (U) Small Abnormal Negative [facility] Comment on above: Order Comment: Urine received without preservative. Delays in transport may affect results. Interpret with caution. A clinical correlation is recommended. Performed By: #### P TT #### [facility] ([facility]) [address] [place] [address] VIR MUCOUS Present Abnormal None [facility] Comment on above: Order Comment: Urine received without preservative. Delays in transport may affect results. Interpret with caution. A clinical correlation is recommended. Performed By: #### P TT #### [facility] ([facility]) [address] [place] [address] VIR Nitrite Ql (U) Negative Normal Negative [facility] Comment on above: Order Comment: Urine received without preservative. Delays in transport may affect results. Interpret with caution. A clinical correlation is recommended. Performed By: #### P TT #### [facility] ([facility]) [address] [place] [address] VIR PH,URINE 5.5 Normal 5.0-8.5 [facility] Comment on above: Order Comment: Urine received without preservative. Delays in transport may affect results. Interpret with caution. A clinical correlation is recommended. Performed By: #### P TT #### [facility] ([facility]) [address] [place] [address] VIR Protein Ql (U) 70 mg/dL Abnormal Negative [facility] Comment on above: Order Comment: Urine received without preservative. Delays in transport may affect results. Interpret with caution. A clinical correlation is recommended. Performed By: #### P TT #### [facility] ([facility]) [address] [place] [address] VIR R.B.CELLS 17 High 0-5 [facility] Comment on above: Order Comment: Urine received without preservative. Delays in transport may affect results. Interpret with caution. A clinical correlation is recommended. Performed By: #### P TT #### [facility] ([facility]) [address] [place] [address] VIR Specific gravity (U) [Rel density] 1.013 Normal 1.003-1.03 5 [facility] Comment on above: Order Comment: Urine received without preservative. Delays in transport may affect results. Interpret with caution. A clinical correlation is recommended. Performed By: #### P TT #### [facility] ([facility]) [address] [place] [address] VIR SQUAMOUS EPITHELIUM 1 Normal 0-[address] [facility] Comment on above: Order Comment: Urine received without preservative. Delays in transport may affect results. Interpret with caution. A clinical correlation is recommended. Performed By: #### P TT #### [facility] ([facility]) [address] [place] [address] VIR TURBIDITY Hazy Abnormal Clear [facility] Comment on above: Order Comment: Urine received without preservative. Delays in transport may affect results. Interpret with caution. A clinical correlation is recommended. Performed By: #### P TT #### [facility] ([facility]) [address] [place] [address] VIR UROBILINOGEN <1.1 eu/dL Normal <1.1 eu/dL [facility] Comment on above: Order Comment: Urine received without preservative. Delays in transport may affect results. Interpret with caution. A clinical correlation is recommended. Performed By: #### P TT #### [facility] ([facility]) [address] [place] [address] VIR W.B.CELLS 39 High 0-5 [facility] Comment on above: Order Comment: Urine received without preservative. Delays in transport may affect results. Interpret with caution. A clinical correlation is recommended. Performed By: #### P TT #### [facility] ([facility]) [address] [place] [address] VIR URINE CREATININE,RANDOMon URINE CREATININE,RDM 83.54 mg/dL Normal [facility] Comment on above: Performed By: #### P INR #### [facility] ([facility]) [address] [place] [address] VIR Order Comment: Nephr otic Syndrome is [...] Varner MD on 09/19/2024 6:46 AM Normal [facility] US [facility] US RetroperitoneumOrdered By : Mao Varner on 09-19-2024 [facility] Work Phone: UrinalysisOrdered By: Aayush Ewing on 09-19-2024 Bilirubin Ql (U) Negative Negative [facility] Color (U) Colorless Yellow, Colorless [facility] Epithelial cells Auto (Urine sed) [#/Area] 1 0 - 5 [facility] Glucose (U) [Mass/Vol] Negative Negative [facility] Hemoglobin Auto test strip Ql (U) Moderate Abnormal Negative [facility] Interpretation and review of laboratory results Abnormal [facility] Ketones (U) [Mass/Vol] Negative Negative [facility] Leukocyte esterase Auto test strip Ql (U) Small Abnormal Negative [facility] Mucus Ql (Urine sed) Present Abnormal None [facility] Nitrite Auto test strip Ql (U) Negative Negative [facility] pH (U) 5.5 [pH] 5.0 - 8.5 [facility] Protein (U) [Mass/Vol] 70 mg/dL Abnormal Negative [facility] RBC Auto (Urine sed) [#/Area] 17 High 0 - 5 [facility] Specific gravity Refractometry automated (U) [Rel density] 1.013 1.003 - 1.035 [facility] Turbidity Ql (U) Hazy Abnormal Clear [facility] Urobilinogen Qn (U) {Mirza'U}/dL <1.1 eu/dL P [facility] WBC Auto (Urine sed) [#/Area] 39 High 0 - 5 [facility] VITAMIN B12on 09-19-2024 Cobalamin (Vitamin B12) [Mass/Vol] 517 pg/mL Normal 180-914 [facility] Comment on above: Performed By: #### P TT #### [facility] ([facility]) [address] [place] [address] VIR Vitamin B12on 09-19-2024 Cobalamin (Vitamin B12) [Mass/Vol] 517 pg/mL 180 - 914 pg/mL [facility] Interpretation and review of laboratory results Normal [facility] ALL CBC WITH AUTO DIFFon BASOPHILS ABSOLUTE AUTO 0.1 N [facility] Basophils/100 WBC (Bld) 0.7 % 0.2 - 2.0 % [facility] Eosinophils/100 WBC (Bld) 2.3 % 0.9 - 7.0 % [facility] Erythrocyte distribution width (RBC) [Ratio] 14.9 % 11.0 - 15.0 % [facility] Hematocrit (Bld) [Volume fraction] 37.9 % 36.0 - 48.0 % [facility] Hemoglobin (Bld) [Mass/Vol] 11.7 g/dL Low 12.0 - 16.0 g/dL [facility] IMMATURE GRANULOCYTES ABS AUTO 0.05 High [facility] Immature granulocytes/100 WBC (Bld) 0.4 % 0.0 - 0.5 % [facility] Interpretation and review of laboratory results Abnormal [facility] LYMPHOCYTES ABSOLUTE AUTO 0.8 Low [facility] Lymphocytes/100 WBC (Bld) 6.3 % Low 20.5 - 60.0 % [facility] MCH (RBC) [Entitic mass] 27.1 pg 26. 7 - 34.0 pg [facility] MCHC (RBC) [Mass/Vol] 30.9 g/dL 29.9 - 35.2 g/dL [facility] MCV (RBC) [Entitic vol] 87.7 fL 81.0 - 99.0 fL [facility] MONOCYTES ABSOLUTE AUTO 1 High N [facility] Monocytes/100 WBC (Bld) 7.5 % 1.7 - 12.0 % [facility] NEUTROPHILS ABSOLUTE AUTO 10.7 High [facility] Neutrophils/100 WBC (Bld) 82.8 % High 43.0 - 75.0 % [facility] Platelet mean volume (Bld) [Entitic vol] 11.5 fL 9.5 - 13.5 fL [facility] TBH EO # 0.3 [facility] PLT 218 [facility] RBC 4.32 [facility] WBC 12.9 High [facility] CBC AND AUTO DIFFon 09-02-19 25 ABSOLUTE BASOPHIL 0.1 X10E9/L Normal 0.0-0.2 [facility] Comment on above: Performed By: #### C BCA, CMP, 2156-6, 61194-2, 70961-9, 59595-4, PINR, 78047-9, 2639-3 #### [facility] ([id number]) [address] [place] [address] ABSOLUTE NEUTROPHIL 7.5 X10E9/L High 1.5-6.6 [facility] Comment on above: Performed By: #### C BCA, CMP, 2156-, 56130-0, 52033-5, 05218-8, PINR, 73184-0, 2639-3 #### [facility] ([id number]) [address] [place] [address]75 Basophils/100 WBC (Bld) 0.7 % Normal [facility] Comment on above: Performed By: #### C BCA, CMP, 2156-, 26535-9, 47402-8, 52186-6, PINR, 58440-6, 2639-3 #### [facility] ([id number]) [address] [place] [address] 66556 Eosinophils (Bld) [#/Vol] 0.1 10*3/uL Normal 0.0-0.4 [facility] Comment on above: Performed By: #### C BCA, CMP, 2156-6, 38975-0, 84071-0, 85142-9, PINR, 45360-0, 2639-3 #### [facility] ([id number]) [address] [place] [address]32 Eosinophils/100 WBC (Bld) 1.3 % Normal [facility] Comment on above: Performed By: #### C BCA, CMP, 2156-6, 37340-6, 95733-3, 49504-8, PINR, 27619-1, 2639-3 #### [facility] ([id number]) [address] [place] [address] Erythrocyte distribution width (RBC) [Ratio] 15.4 % High 11.5-15.0 [facility] Comment on above: Performed By: #### C BCA, CMP, 2156-6, 59744-3, 13956-5, 63248-5, PINR, 32742-9, 2639-3 #### [facility] ([id number]) [address] [place] [address] 61306 Hematocrit (Bld) [Volume fraction] 36.0 % Normal 35-47 [facility] Comment on above: Performed By: #### C BCA, CMP, 2156-10, 92459-0, 51721-8, 68370-7, PINR, 88819-3, 2639-3 #### [facility] ([id number]) [address] [place] [address] 83769 Hemoglobin (Bld) [Mass/Vol] 12.2 g/dL Normal 11.7-15.5 [facility] Comment on above: Performed By: #### C BCA, CMP, 2156-10, 31451-3, 39300-3, 98280-5, PINR, 23627-7, 2639-3 #### [facility] ([id number]) [address] [place] [address] 02757 Lymphocytes (Bld) [#/Vol] 0.9 10*3/uL Low 1.0-3.5 [facility] Comment on above: Performed By: #### C BCA, CMP, 2156-6, 33553-4, 25830-0, 24791-2, PINR, 00052-3, 2639-3 #### [facility] ([id number]) [address] [place] [address] 23464 Lymphocytes/100 WBC (Bld) 9.4 % Normal [facility] Comment on above: Performed By: #### C BCA, CMP, 2156-10, 66505-8, 12452-4, 29927-5, PINR, 80400-1, 2639-3 #### [facility] ([id number]) [address] [place] [address] 15936 MCH (RBC) [Entitic mass] 28.0 pg Normal 27-34 [facility] Comment on above: Performed By: #### C BCA, CMP, 2156-6, 02982-7, 68811-5, 83562-7, PINR, 27564-7, 2639-3 #### [facility] ([id number]) [address] [place] [address] 69086 MCHC (RBC) [Mass/Vol] 34.0 g/dL Normal 32-36 [facility] Comment on above: Performed By: #### C BCA, CMP, 2156-6, 98802-3, 05669-2, 24117-1, PINR, 69248-9, 2639-3 #### [facility] ([id number]) [address] [place] [address] 22248 MCV (RBC) [Entitic vol] 82 fL Normal 80-100 [facility] Comment on above: Performed By: #### C BCA, CMP, 2156-6, 28321-2, 53699-2, 69010-7, PINR, 14342-7, 2639-3 #### [facility] ([id number]) [address] [place] [address] 40104 Monocytes (Bld) [#/Vol] 1.4 10*3/uL High 0-0.9 [facility] Comment on above: Performed By: #### C BCA, CMP, 2156-6, 75903-5, 30441-8, 57119-5, PINR, 96334-8, 2639-3 #### [facility] ([id number]) [address] [place] [address] 45220 Monocytes/100 WBC (Bld) 13.8 % Normal [facility] Comment on above: Performed By: #### C BCA, CMP, 2156-6, 48081-8, 96382-1, 79848-8, PINR, 74556-1, 2639-3 #### [facility] ([id number]) [address] [place] [address] 51364 Neutrophils/100 WBC (Bld) 74.8 % Normal [facility] Comment on above: Performed By: #### C BCA, CMP, 2156-6, 28100-8, 70785-5, 02774-8, PINR, 58759-7, 2639-3 #### [facility] ([id number]) [address] [place] [address] 77814 Platelet mean volume (Bld) [Entitic vol] 9.4 fL Normal 7-12 [facility] Comment on above: Performed By: #### C BCA, CMP, 2156-6, 34376-9, 85016-8, 87973-4, PINR, 63689-8, 2639-3 #### [facility] ([id number]) [address] [place] [address] 53692 Platelets (Bld) [#/Vol] 215 10*3/uL Normal 150-450 [facility] Comment on above: Performed By: #### C BCA, CMP, 2156-6, 56763-1, 88465-8, 03845-8, PINR, 99259-2, 2639-3 #### [facility] ([id number]) [address] [place] [address] 10717 RBC COUNT 4.36 X10E12/L Normal 3.80-5.20 [facility] Comment on above: Performed By: #### C BCA, CMP, 2156-6, 17451-8, 32147-9, 37299-8, PINR, 56557-4, 2639-3 #### [facility] ([id number]) [address] [place] [address] 77794 WBC (Bld) [#/Vol] 10.1 10*3/uL Normal 4.0-11.0 [facility] Comment on above: Performed By: #### C BCA, CMP, 2157-6, 08285-4, 25983-0, 98828-3, PINR, 24652-8, 2639-3 #### [facility] ([id number]) [address] [place] [address] 01354 CK [Catalytic activity/Vol]o n 09-01-2024 CPK 188 U/L High 24-170 [facility] Comment on above: Performed By: #### C BCA, CMP, 7-6, 85494-5, 82837-9, 18829-6, PINR, 29713-7, 2639-3 #### [facility] ([id number]) [address] [place] [address] 63477 COMPREHENSIVE METABOLIC PANE Antoni 09-01-2024 Albumin [Mass/Vol] 2.6 g/dL Low 3.2-5.3 [facility] Comment on above: Performed By: #### C BCA, CMP, 7-6, 16280-6, 94242-5, 23548-1, PINR, 10770-6, 2639-3 #### [facility] ([id number]) [address] [place] [address] 58364 ALP [Catalytic activity/Vol] 101 U/L Normal 39-130 [facility] Comment on above: Performed By: #### C BCA, CMP, 7-6, 24223-5, 25292-7, 46153-5, PINR, 85954-7, 2639-3 #### [facility] ([id number]) [address] [place] [address] 82060 ALT [Catalytic activity/Vol] 34 U/L High 0-31 [facility] Comment on above: Performed By: #### C BCA, CMP, 7-6, 14333-7, 10070-0, 08336-9, PINR, 41342-9, 2639-3 #### [facility] ([id number]) [address] [place] [address] 51935 Anion gap [Moles/Vol] 11 mmol/L Normal 5-15 [facility] Comment on above: Performed By: #### C BCA, CMP, 2156-6, 99625-8, 74366-0, 19559-3, PINR, 35811-0, 2639-3 #### [facility] ([id number]) [address] [place] [address] 51325 AST [Catalytic activity/Vol] 32 U/L Normal 0-41 [facility] Comment on above: Performed By: #### C BCA, CMP, 2156-6, 45844-7, 04869-8, 16857-4, PINR, 24124-3, 2639-3 #### [facility] ([id number]) [address] [place] [address] 49184 Bilirubin [Mass/Vol] 0.5 mg/dL Normal 0.3-1.2 [facility] Comment on above: Performed By: #### C BCA, CMP, 2156-6, 22520-2, 63296-1, 90027-6, PINR, 01408-9, 2639-3 #### [facility] ([id number]) [address] [place] [address] 63169 Calcium [Mass/Vol] 8.5 mg/dL Normal 8.5-10.5 [facility] Comment on above: Performed By: #### C BCA, CMP, 2156-6, 38898-1, 46532-2, 87039-1, PINR, 94877-8, 2639-3 #### [facility] ([id number]) [address] [place] [address] [place] [address] Chloride [Moles/Vol] 106 mmol/L Normal 98-109 [facility] Comment on above: Performed By: #### C BCA, CMP, 2157-6, 68117-0, 88644-4, 68716-7, PINR, 66500-1, 2639-3 #### [facility] ([id number]) [address] [place] [address] 28547 CO2 [Moles/Vol] 24 mmol/L Normal 22-32 [facility] Comment on above: Performed By: #### C BCA, CMP, 2156-6, 24813-9, 89126-9, 65010-6, PINR, 99999-3, 2639-3 #### [facility] ([id number]) [address] [place] [address] 39742 Creatinine [Mass/Vol] 0.87 mg/dL Normal 0.40-1.00 [facility] Comment on above: Result Comment: METH OD TRACEABLE TO IDMS STANDARD Performed By: #### C BCA, CMP, 2156-6, 36001-5, 74718-1, 71598-1, PINR, 49208-7, 2639-3 #### [facility] ([id number]) [address] [place] [address] 73465 GFR/1.73 sq M.predicted among non-blacks MDRD (S/P/Bld) [Vol rate/Area] 78 mL/min/{1.73_m2} Normal >59 [facility] Comment on above: Result Comment: Reported eGFR is based on the CKD-EPI 2020 equation that does not use a race coefficient. Performed By: #### C BCA, CMP, 2157-6, 46092-0, 64386-9, 28889-0, PINR, 63768-8, 2639-3 #### [facility] ([id number]) [address] [place] [address] 46144 Glucose [Mass/Vol] 108 mg/dL High 65-99 [facility] Comment on above: Performed By: #### C BCA, CMP, 7-6, 65639-0, 64842-0, 65346-0, PINR, 49898-6, 2639-3 #### [facility] ([id number]) [address] [place] [address] 95793 Potassium [Moles/Vol] 4.1 mmol/L Normal 3.5-5.0 [facility] Comment on above: Performed By: #### C BCA, CMP, 2156-6, 65720-6, 65167-6, 40445-4, PINR, 96119-1, 2639-3 #### [facility] ([id number]) [address] [place] [address] 17121 Protein [Mass/Vol] 6.6 g/dL Normal 6.0-8.0 [facility] Comment on above: Performed By: #### C BCA, CMP, 2156-6, 95230-2, 51884-6, 36200-6, PINR, 74689-3, 2639-3 #### [facility] ([id number]) [address] [place] [address] 11438 Sodium [Moles/Vol] 141 mmol/L Normal 134-146 [facility] Comment on above: Performed By: #### C BCA, CMP, 2156-6, 08416-4, 25341-7, 34967-9, PINR, 92174-3, 2639-3 #### [facility] ([id number]) [address] [place] [address] 44187 Urea nitrogen [Mass/Vol] 12 mg/dL Normal 5-23 [facility] Comment on above: Performed By: #### C BCA, CMP, 7-6, 85369-1, 54875-0, 00950-7, PINR, 88919-6, 2639-3 #### [facility] ([id number]) [address] [place] [address] 94647 MAGNESIUMon 09-01-2024 Magnesium [Mass/Vol] 2.0 mg/dL Normal 1.8-2.6 [facility] Comment on above: Performed By: #### C BCA, CMP, 7-6, 55282-9, 11862-4, 58672-7, PINR, 38657-7, 2639-3 #### [facility] ([id number]) [address] [place] [address] 54340 Myoglobin [Mass/Vol]on 09-01 SERUM MYOGLOBIN 53.7 ng/mL Normal 14.3-65.8 [facility] Comment on above: Performed By: #### C BCA, CMP, 2156-6, 20716-6, 52853-3, 65614-2, PINR, 87379-3, 2639-3 #### [facility] ([id number]) [address] [place] [address] 52565 CBC AND AUTO DIFFon 09-01-19 25 ABSOLUTE BASOPHIL 0.1 X10E9/L Normal 0.0-0.2 [facility] Comment on above: Performed By: #### C BCA, CMP, 2156-6, 55125-7, 72979-0, 30315-3, PINR, 15802-6, 2639-3 #### [facility] ([id number]) [address] [place] [address] [place] [address] ABSOLUTE NEUTROPHIL 7.4 X10E9/L High 1.5-6.6 [facility] Comment on above: Performed By: #### C BCA, CMP, 2156-6, 15501-8, 35598-1, 23862-0, PINR, 86500-6, 2639-3 #### [facility] ([id number]) [address] [place] [address] 60422 Basophils/100 WBC (Bld) 0.9 % Normal [facility] Comment on above: Performed By: #### C BCA, CMP, 7-6, 02306-6, 10275-2, 33431-2, PINR, 60230-3, 2639-3 #### [facility] ([id number]) [address] [place] [address] 11807 Eosinophils (Bld) [#/Vol] 0.1 10*3/uL Normal 0.0-0.4 [facility] Comment on above: Performed By: #### C BCA, CMP, 2156-6, 02709-3, 62403-2, 43172-7, PINR, 17781-1, 2639-3 #### [facility] ([id number]) [address] [place] [address] 62915 Eosinophils/100 WBC (Bld) 1.4 % Normal [facility] Comment on above: Performed By: #### C BCA, CMP, 2156-6, 13543-3, 18507-6, 37829-3, PINR, 97208-1, 2639-3 #### [facility] ([id number]) [address] [place] [address] [place] [address] Erythrocyte distribution width (RBC) [Ratio] 15.8 % High 11.5-15.0 [facility] Comment on above: Performed By: #### C BCA, CMP, 2156-6, 84276-6, 83929-5, 07547-5, PINR, 78286-3, 2639-3 #### [facility] ([id number]) [address] [place] [address] 87776 Hematocrit (Bld) [Volume fraction] 35.7 % Normal 35-47 [facility] Comment on above: Performed By: #### C BCA, CMP, 2156-6, 51680-7, 31030-7, 28866-0, PINR, 40621-7, 2639-3 #### [facility] ([id number]) [address] [place] [address] 41627 Hemoglobin (Bld) [Mass/Vol] 12.1 g/dL Normal 11.7-15.5 [facility] Comment on above: Performed By: #### C BCA, CMP, 2156-6, 31785-4, 08546-5, 32600-7, PINR, 09228-5, 2639-3 #### [facility] ([id number]) [address] [place] [address] 03397 Lymphocytes (Bld) [#/Vol] 0.8 10*3/uL Low 1.0-3.5 [facility] Comment on above: Performed By: #### C BCA, CMP, 2156-6, 29230-9, 22325-4, 48607-6, PINR, 86617-6, 2639-3 #### [facility] ([id number]) [address] [place] [address] 86508 Lymphocytes/100 WBC (Bld) 8.5 % Normal [facility] Comment on above: Performed By: #### C BCA, CMP, 2156-6, 21015-4, 52819-9, 61878-0, PINR, 53321-8, 2639-3 #### [facility] ([id number]) [address] [place] [address] 15462 MCH (RBC) [Entitic mass] 28.1 pg Normal 27-34 [facility] Comment on above: Performed By: #### C BCA, CMP, 2156-6, 34791-6, 54610-1, 72919-2, PINR, 96134-9, 2639-3 #### [facility] ([id number]) [address] [place] [address] 02977 MCHC (RBC) [Mass/Vol] 33.9 g/dL Normal 32-36 [facility] Comment on above: Performed By: #### C BCA, CMP, 2156-6, 10504-8, 96481-8, 92522-7, PINR, 33930-6, 2639-3 #### [facility] ([id number]) [address] [place] [address] 83176 MCV (RBC) [Entitic vol] 83 fL Normal 80-100 [facility] Comment on above: Performed By: #### C BCA, CMP, 2156-6, 47443-8, 88786-7, 76474-0, PINR, 46785-1, 2639-3 #### [facility] ([id number]) [address] [place] [address] 17459 Monocytes (Bld) [#/Vol] 1.4 10*3/uL High 0-0.9 [facility] Comment on above: Performed By: #### C BCA, CMP, 2156-6, 59131-8, 62496-3, 07092-2, PINR, 71537-9, 2639-3 #### [facility] ([id number]) [address] [place] [address] 85293 Monocytes/100 WBC (Bld) 14.1 % Normal [facility] Comment on above: Performed By: #### C BCA, CMP, 2156-6, 11922-8, 07668-1, 45776-3, PINR, 29170-8, 2639-3 #### [facility] ([id number]) [address] [place] [address] 47323 Neutrophils/100 WBC (Bld) 75.1 % Normal [facility] Comment on above: Performed By: #### C BCA, CMP, 2156-6, 63941-8, 80431-3, 60350-8, PINR, 28477-5, 2639-3 #### [facility] ([id number]) [address] [place] [address] 83492 Platelet mean volume (Bld) [Entitic vol] 10.0 fL Normal 7-12 [facility] Comment on above: Performed By: #### C BCA, CMP, 7-6, 85963-2, 97164-3, 27189-7, PINR, 80502-8, 2639-3 #### [facility] ([id number]) [address] [place] [address] 13663 Platelets (Bld) [#/Vol] 206 10*3/uL Normal 150-450 [facility] Comment on above: Performed By: #### C BCA, CMP, 2156-6, 67956-1, 64903-0, 04476-4, PINR, 00880-6, 2639-3 #### [facility] ([id number]) [address] [place] [address] 91994 RBC COUNT 4.31 X10E12/L Normal 3.80-5.20 [facility] Comment on above: Performed By: #### C BCA, CMP, 2156-6, 46420-3, 81244-1, 31671-7, PINR, 51676-0, 2639-3 #### [facility] ([id number]) [address] [place] [address] 13316 WBC (Bld) [#/Vol] 9.9 10*3/uL Normal 4.0-11.0 [facility] Comment on above: Performed By: #### C BCA, CMP, 2156-6, 61478-0, 90440-7, 61770-8, PINR, 92031-9, 2639-3 #### [facility] ([id number]) [address] [place] [address] 75863 CK [Catalytic activity/Vol]o n 08-31-2024 CPK 324 U/L High 24-170 [facility] Comment on above: Performed By: #### C BCA, CMP, 2156-6, 40691-9, 10804-4, 61334-9, PINR, 18856-2, 2639-3 #### [facility] ([id number]) [address] [place] [address] 63911 CPK 405 U/L High 24-170 [facility] Comment on above: Performed By: #### C BCA, CMP, 2157-6, 93254-8, 22953-6, 25000-0, PINR, 07739-3, 2639-3 #### [facility] ([id number]) [address] [place] [address] 27174 COMPREHENSIVE METABOLIC PANE Antoni 08-31-2024 Albumin [Mass/Vol] 2.5 g/dL Low 3.2-5.3 [facility] Comment on above: Performed By: #### C BCA, CMP, 2157-6, 35820-1, 08312-5, 39412-4, PINR, 39278-3, 2639-3 #### [facility] ([id number]) [address] [place] [address] 91690 ALP [Catalytic activity/Vol] 75 U/L Normal 39-130 [facility] Comment on above: Performed By: #### C BCA, CMP, 2157-6, 72739-9, 13405-8, 80652-5, PINR, 00010-2, 2639-3 #### [facility] ([id number]) [address] [place] [address] [place] [address] ALT [Catalytic activity/Vol] 31 U/L Normal 0-31 [facility] Comment on above: Performed By: #### C BCA, CMP, 2157-6, 84160-5, 98360-3, 60064-3, PINR, 67508-2, 2639-3 #### [facility] ([id number]) [address] [place] [address] 36117 Anion gap [Moles/Vol] 9 mmol/L Normal 5-15 [facility] Comment on above: Performed By: #### C BCA, CMP, 2156-6, 12631-1, 26786-6, 69368-2, PINR, 52215-6, 2639-3 #### [facility] ([id number]) [address] [place] [address] 24418 AST [Catalytic activity/Vol] 36 U/L Normal 0-41 [facility] Comment on above: Performed By: #### C BCA, CMP, 2156-, 57104-9, 60984-7, 30879-4, PINR, 93637-5, 2639-3 #### [facility] ([id number]) [address] [place] [address] 30734 Bilirubin [Mass/Vol] 0.5 mg/dL Normal 0.3-1.2 [facility] Comment on above: Performed By: #### C BCA, CMP, 2156-10, 22841-0, 48957-6, 63283-3, PINR, 37090-5, 2639-3 #### [facility] ([id number]) [address] [place] [address] 24477 Calcium [Mass/Vol] 8.2 mg/dL Low 8.5-10.5 [facility] Comment on above: Performed By: #### C BCA, CMP, 2156-10, 67968-1, 04322-0, 42149-0, PINR, 84328-7, 2639-3 #### [facility] ([id number]) [address] [place] [address] 73913 Chloride [Moles/Vol] 107 mmol/L Normal 98-109 [facility] Comment on above: Performed By: #### C BCA, CMP, 2156-6, 67385-3, 69641-4, 69608-3, PINR, 21600-6, 2639-3 #### [facility] ([id number]) [address] [place] [address] 07521 CO2 [Moles/Vol] 24 mmol/L Normal 22-32 [facility] Comment on above: Performed By: #### C BCA, CMP, 2156-, 50249-2, 21218-0, 64634-4, PINR, 22259-6, 2639-3 #### [facility] ([id number]) [address] [place] [address] 63954 Creatinine [Mass/Vol] 0.83 mg/dL Normal 0.40-1.00 [facility] Comment on above: Result Comment: METH OD TRACEABLE TO IDMS STANDARD Performed By: #### C TEDDY, CMP, 2156-10, , 50163-3, 59481-8, PINR, 20081-6, 2639-3 #### [facility] ([id number]) [address] [place] [address] 22193 GFR/1.73 sq M.predicted among non-blacks MDRD (S/P/Bld) [Vol rate/Area] 83 mL/min/{1.73_m2} Normal >59 [facility] Comment on above: Result Comment: Reported eGFR is based on the CKD-EPI 2020 equation that does not use a race coefficient. Performed By: #### C TEDDY, CMP, 2156-10, 80542-5, 22075-8, 27635-0, PINR, 26597-1, 2639-3 #### [facility] ([id number]) [address] [place] [address] 06766 Glucose [Mass/Vol] 101 mg/dL High 65-99 [facility] Comment on above: Performed By: #### C BCA, CMP, 2156-10, 27534-3, 51184-2, 54329-5, PINR, 76552-1, 2639-3 #### [facility] ([id number]) [address] [place] [address] 64312 Potassium [Moles/Vol] 3.7 mmol/L Normal 3.5-5.0 [facility] Comment on above: Performed By: #### C BCA, CMP, 2156-6, 08197-4, 78015-6, 08625-0, PINR, 44820-1, 2639-3 #### [facility] ([id number]) [address] [place] [address] 29233 Protein [Mass/Vol] 6.3 g/dL Normal 6.0-8.0 [facility] Comment on above: Performed By: #### C BCA, CMP, 2156-6, 11445-3, 33741-4, 55221-0, PINR, 37105-6, 2639-3 #### [facility] ([id number]) [address] [place] [address] 21723 Sodium [Moles/Vol] 140 mmol/L Normal 134-146 [facility] Comment on above: Performed By: #### C BCA, CMP, 2156-6, 67377-4, 91520-7, 82692-5, PINR, 69617-8, 2639-3 #### [facility] ([id number]) [address] [place] [address] [place] [address] Urea nitrogen [Mass/Vol] 8 mg/dL Normal 5-23 [facility] Comment on above: Performed By: #### C BCA, CMP, 2156-6, 69664-8, 95867-6, 93493-5, PINR, 79067-4, 2639-3 #### [facility] ([id number]) [address] [place] [address] [place] [address] MAGNESIUMon 08-31-2024 Magnesium [Mass/Vol] 2.0 mg/dL Normal 1.8-2.6 [facility] Comment on above: Performed By: #### C BCA, CMP, 2156-6, 87496-7, 95521-4, 94657-1, PINR, 07071-4, 2639-3 #### [facility] ([id number]) [address] [place] [address] 33833 Myoglobin [Mass/Vol]on 08-31 SERUM MYOGLOBIN 47.5 ng/mL Normal 14.3-65.8 [facility] Comment on above: Performed By: #### C BCA, CMP, 2156-6, 67816-0, 24324-6, 00874-2, PINR, 46862-9, 2639-3 #### [facility] ([id number]) [address] [place] [address] 80800 SERUM MYOGLOBIN 62.9 ng/mL Normal 14.3-65.8 [facility] Comment on above: Performed By: #### C BCA, CMP, 2156-6, 00238-8, 24976-8, 40821-4, PINR, 02341-2, 2639-3 #### [facility] ([id number]) [address] [place] [address] 35955 POTASSIUMon 08-31-2024 Potassium [Moles/Vol] 4.0 mmol/L Normal 3.5-5.0 [facility] Comment on above: Performed By: #### C BCA, CMP, 2156-6, 36706-9, 88185-0, 27956-5, PINR, 89515-9, 2639-3 #### [facility] ([id number]) [address] [place] [address] 88546 CBC AND AUTO DIFFon 08-31-19 25 ABSOLUTE BASOPHIL 0.1 X10E9/L Normal 0.0-0.2 [facility] Comment on above: Performed By: #### C BCA, CMP, 2156-6, 59999-7, 05143-6, 50362-3, PINR, 43018-4, 2639-3 #### [facility] ([id number]) [address] [place] [address] ABSOLUTE NEUTROPHIL 9.5 X10E9/L High 1.5-6.6 [facility] Comment on above: Performed By: #### C BCA, CMP, 2156-, 34946-4, 25171-3, 80391-2, PINR, 27032-9, 2639-3 #### [facility] ([id number]) [address] [place] [address] 61936 Basophils/100 WBC (Bld) 0.5 % Normal [facility] Comment on above: Performed By: #### C BCA, CMP, 2156-, 56813-8, 84130-0, 09906-7, PINR, 88129-9, 2639-3 #### [facility] ([id number]) [address] [place] [address] 31617 Eosinophils (Bld) [#/Vol] 0.0 10*3/uL Normal 0.0-0.4 [facility] Comment on above: Performed By: #### C BCA, CMP, 2156-10, 68777-2, 91973-8, 07688-9, PINR, 76850-8, 2639-3 #### [facility] ([id number]) [address] [place] [address] 98497 Eosinophils/100 WBC (Bld) 0.3 % Normal [facility] Comment on above: Performed By: #### C BCA, CMP, 2156-10, 82021-6, 17458-7, 82780-4, PINR, 60278-4, 2639-3 #### [facility] ([id number]) [address] [place] [address] 96971 Erythrocyte distribution width (RBC) [Ratio] 15.0 % Normal 11.5-15.0 [facility] Comment on above: Performed By: #### C BCA, CMP, 2156-, 90598-6, 37723-1, 52705-2, PINR, 81063-9, 2639-3 #### [facility] ([id number]) [address] [place] [address] 50511 Hematocrit (Bld) [Volume fraction] 36.8 % Normal 35-47 [facility] Comment on above: Performed By: #### C BCA, CMP, 2156-6, 89575-7, 99548-1, 04045-8, PINR, 96470-2, 2639-3 #### [facility] ([id number]) [address] [place] [address] 61544 Hemoglobin (Bld) [Mass/Vol] 12.4 g/dL Normal 11.7-15.5 [facility] Comment on above: Performed By: #### C BCA, CMP, 2156-6, 67577-2, 24111-5, 20384-9, PINR, 92582-5, 2639-3 #### [facility] ([id number]) [address] [place] [address] 13330 Lymphocytes (Bld) [#/Vol] 0.7 10*3/uL Low 1.0-3.5 [facility] Comment on above: Performed By: #### C BCA, CMP, 2156-6, 96025-1, 72280-8, 59430-7, PINR, 86537-9, 2639-3 #### [facility] ([id number]) [address] [place] [address] 30598 Lymphocytes/100 WBC (Bld) 5.8 % Normal [facility] Comment on above: Performed By: #### C BCA, CMP, 2156-6, 80945-8, 84921-1, 42907-9, PINR, 19298-5, 2639-3 #### [facility] ([id number]) [address] [place] [address] 40940 MCH (RBC) [Entitic mass] 28.0 pg Normal 27-34 [facility] Comment on above: Performed By: #### C BCA, CMP, 2156-6, 39308-6, 83792-2, 59605-2, PINR, 46183-9, 2639-3 #### [facility] ([id number]) [address] [place] [address] 07451 MCHC (RBC) [Mass/Vol] 33.6 g/dL Normal 32-36 [facility] Comment on above: Performed By: #### C BCA, CMP, 2156-, 39677-4, 73773-7, 78591-7, PINR, 65500-9, 2639-3 #### [facility] ([id number]) [address] [place] [address] 21815 MCV (RBC) [Entitic vol] 83 fL Normal 80-[address] [facility] Comment on above: Performed By: #### C BCA, CMP, 2156-10, 02329-2, 42165-8, 58214-9, PINR, 42953-1, 2639-3 #### [facility] ([id number]) [address] [place] [address] 17280 Monocytes (Bld) [#/Vol] 1.1 10*3/uL High 0-0.9 [facility] Comment on above: Performed By: #### C BCA, CMP, 2156-10, 84274-5, 04656-7, 76364-2, PINR, 92572-0, 2639-3 #### [facility] ([id number]) [address] [place] [address] 10742 Monocytes/100 WBC (Bld) 9.8 % Normal [facility] Comment on above: Performed By: #### C BCA, CMP, 2156-6, 20298-3, 57171-6, 74316-7, PINR, 62656-3, 2639-3 #### [facility] ([id number]) [address] [place] [address] Neutrophils/100 WBC (Bld) 83.6 % Normal [facility] Comment on above: Performed By: #### C BCA, CMP, 2156-6, 75088-0, 76416-8, 17985-5, PINR, 16952-5, 2639-3 #### [facility] ([id number]) [address] [place] [address] 23947 Platelet mean volume (Bld) [Entitic vol] 9.6 fL Normal 7-12 [facility] Comment on above: Performed By: #### C BCA, CMP, 2156-, 97136-0, 35749-0, 53116-9, PINR, 20776-6, 2639-3 #### [facility] ([id number]) [address] [place] [address] 90263 Platelets (Bld) [#/Vol] 202 10*3/uL Normal 150-450 [facility] Comment on above: Performed By: #### C BCA, CMP, 2156-, 54520-0, 25181-5, 63653-5, PINR, 90194-4, 2639-3 #### [facility] ([id number]) [address] [place] [address] 87393 RBC COUNT 4.41 X10E12/L Normal 3.80-5.20 [facility] Comment on above: Performed By: #### C BCA, CMP, 2156-6, 72646-0, 69730-9, 78133-7, PINR, 13406-7, 2639-3 #### [facility] ([id number]) [address] [place] [address] 37196 WBC (Bld) [#/Vol] 11.4 10*3/uL High 4.0-11.0 [facility] Comment on above: Performed By: #### C BCA, CMP, 2156-, 09687-5, 70751-2, 69967-2, PINR, 69273-2, 2639-3 #### [facility] ([id number]) [address] [place] [address] 91231 CK [Catalytic activity/Vol]o n 08-30-2024 CPK 563 U/L High 24-170 [facility] Comment on above: Performed By: #### C BCA, CMP, 2157-6, 23521-1, 46343-7, 15843-3, PINR, 32387-4, 2639-3 #### [facility] ([id number]) [address] [place] [address] 75334 CPK 831 U/L High 24-170 [facility] Comment on above: Performed By: #### C BCA, CMP, 2157-6, 45620-0, 56354-1, 95278-4, PINR, 50088-6, 2639-3 #### [facility] ([id number]) [address] [place] [address] 63854 CPK 1066 U/L High 24-170 [facility] Comment on above: Performed By: #### C BCA, CMP, 2157-6, 02447-1, 04781-3, 61498-7, PINR, 96260-2, 2639-3 #### [facility] ([id number]) [address] [place] [address] 98363 COMPREHENSIVE METABOLIC PANE Antoni 08-30-2024 Albumin [Mass/Vol] 2.7 g/dL Low 3.2-5.3 [facility] Comment on above: Performed By: #### C BCA, CMP, 2157-6, 69066-3, 20049-3, 77090-0, PINR, 03948-8, 2639-3 #### [facility] ([id number]) [address] [place] [address] 83051 ALP [Catalytic activity/Vol] 57 U/L Normal 39-130 [facility] Comment on above: Performed By: #### C BCA, CMP, 7-6, 59278-6, 55364-5, 82731-9, PINR, 21184-1, 2639-3 #### [facility] ([id number]) [address] [place] [address] 74471 ALT [Catalytic activity/Vol] 36 U/L High 0-31 [facility] Comment on above: Performed By: #### C BCA, CMP, 2156-6, 55938-3, 97848-1, 20310-8, PINR, 21364-6, 2639-3 #### [facility] ([id number]) [address] [place] [address] 58705 Anion gap [Moles/Vol] 11 mmol/L Normal 5-15 [facility] Comment on above: Performed By: #### C BCA, CMP, 2156-6, 78681-0, 64767-2, 29542-8, PINR, 33212-0, 2639-3 #### [facility] ([id number]) [address] [place] [address] 96888 AST [Catalytic activity/Vol] 52 U/L High 0-41 [facility] Comment on above: Performed By: #### C BCA, CMP, 2156-6, 45472-3, 57533-9, 35318-6, PINR, 15289-2, 2639-3 #### [facility] ([id number]) [address] [place] [address] 19509 Bilirubin [Mass/Vol] 0.6 mg/dL Normal 0.3-1.2 [facility] Comment on above: Performed By: #### C BCA, CMP, 2156-6, 50597-6, 92773-2, 15896-1, PINR, 77080-0, 2639-3 #### [facility] ([id number]) [address] [place] [address] 77238 Calcium [Mass/Vol] 8.2 mg/dL Low 8.5-10.5 [facility] Comment on above: Performed By: #### C BCA, CMP, 7-6, 27477-2, 40637-4, 12579-8, PINR, 26754-4, 2639-3 #### [facility] ([id number]) [address] [place] [address] 58586 Chloride [Moles/Vol] 106 mmol/L Normal 98-109 [facility] Comment on above: Performed By: #### C BCA, CMP, 2156-6, 47570-9, 36554-9, 12843-0, PINR, 55425-1, 2639-3 #### [facility] ([id number]) [address] [place] [address] 80980 CO2 [Moles/Vol] 21 mmol/L Low 22-32 [facility] Comment on above: Performed By: #### C BCA, CMP, 7-6, 63264-9, 19435-9, 74119-3, PINR, 46942-1, 2639-3 #### [facility] ([id number]) [address] [place] [address] 99963 Creatinine [Mass/Vol] 0.87 mg/dL Normal 0.40-1.00 [facility] Comment on above: Result Comment: METH OD TRACEABLE TO IDMS STANDARD Performed By: #### C BCA, CMP, 7-6, 01375-3, 37894-9, 63309-4, PINR, 76384-0, 2639-3 #### [facility] ([id number]) [address] [place] [address] 63944 GFR/1.73 sq M.predicted among non-blacks MDRD (S/P/Bld) [Vol rate/Area] 78 mL/min/{1.73_m2} Normal >59 [facility] Comment on above: Result Comment: Reported eGFR is based on the CKD-EPI 2020 equation that does not use a race coefficient. Performed By: #### C BCA, CMP, 7-6, 67031-4, 14489-5, 35814-9, PINR, 16771-2, 2639-3 #### [facility] ([id number]) [address] [place] [address] Glucose [Mass/Vol] 107 mg/dL High 65-99 [facility] Comment on above: Performed By: #### C BCA, CMP, 2156-6, 64672-1, 78848-4, 24369-3, PINR, 81471-6, 2639-3 #### [facility] ([id number]) [address] [place] [address] 35733 Potassium [Moles/Vol] 3.9 mmol/L Normal 3.5-5.0 [facility] Comment on above: Performed By: #### C BCA, CMP, 2156-6, 22909-8, 19036-9, 61124-2, PINR, 65634-2, 2639-3 #### [facility] ([id number]) [address] [place] [address] 52102 Protein [Mass/Vol] 6.2 g/dL Normal 6.0-8.0 [facility] Comment on above: Performed By: #### C BCA, CMP, 2156-6, 66204-1, 34064-1, 66711-3, PINR, 66963-5, 2639-3 #### [facility] ([id number]) [address] [place] [address] 55259 Sodium [Moles/Vol] 138 mmol/L Normal 134-146 [facility] Comment on above: Performed By: #### C BCA, CMP, 2156-6, 00480-3, 33217-9, 12650-4, PINR, 44463-7, 2639-3 #### [facility] ([id number]) [address] [place] [address] Urea nitrogen [Mass/Vol] 6 mg/dL Normal 5-23 [facility] Comment on above: Performed By: #### C BCA, CMP, 7-6, 10541-2, 35359-2, 93312-3, PINR, 73456-5, 2639-3 #### [facility] ([id number]) [address] [place] [address] 40733 MAGNESIUMon 08-30-2024 Magnesium [Mass/Vol] 2.0 mg/dL Normal 1.8-2.6 [facility] Comment on above: Performed By: #### C BCA, CMP, 2156-6, 52012-2, 92188-3, 56805-2, PINR, 00067-0, 2639-3 #### [facility] ([id number]) [address] [place] [address] 06773 Myoglobin [Mass/Vol]on 08-30 SERUM MYOGLOBIN 67.5 ng/mL High 14.3-65.8 [facility] Comment on above: Performed By: #### C BCA, CMP, 2156-6, 04902-5, 58397-6, 08274-2, PINR, 87843-9, 2639-3 #### [facility] ([id number]) [address] [place] [address] 01930 SERUM MYOGLOBIN 127.2 ng/mL High 14.3-65.8 [facility] Comment on above: Performed By: #### C BCA, CMP, 2156-6, 16021-3, 46078-1, 06873-7, PINR, 74886-9, 2639-3 #### [facility] ([id number]) [address] [place] [address] 46637 SERUM MYOGLOBIN 77.9 ng/mL High 14.3-65.8 [facility] Comment on above: Performed By: #### C BCA, CMP, 7-6, 38420-6, 19859-5, 44901-5, PINR, 23031-2, 2639-3 #### [facility] ([id number]) [address] [place] [address] 66724 CBC AND AUTO DIFFon 08-30-19 25 ABSOLUTE BASOPHIL 0.0 X10E9/L Normal 0.0-0.2 [facility] Comment on above: Performed By: #### C BCA, CMP, 2156-6, 12927-6, 11400-3, 71033-0, PINR, 66332-2, 2639-3 #### [facility] ([id number]) [address] [place] [address] 67089 ABSOLUTE NEUTROPHIL 5.8 X10E9/L Normal 1.5-6.6 [facility] Comment on above: Performed By: #### C BCA, CMP, 2156-6, 51739-2, 89731-4, 16948-3, PINR, 69131-9, 2639-3 #### [facility] ([id number]) [address] [place] [address] [place] [address] Basophils/100 WBC (Bld) 0.5 % Normal [facility] Comment on above: Performed By: #### C BCA, CMP, 2156-6, 14506-2, 82466-8, 98218-7, PINR, 64399-2, 2639-3 #### [facility] ([id number]) [address] [place] [address] 71753 Eosinophils (Bld) [#/Vol] 0.1 10*3/uL Normal 0.0-0.4 [facility] Comment on above: Performed By: #### C BCA, CMP, 2156-6, 93783-0, 15455-3, 80886-6, PINR, 97156-9, 2639-3 #### [facility] ([id number]) [address] [place] [address] 70081 Eosinophils/100 WBC (Bld) 1.6 % Normal [facility] Comment on above: Performed By: #### C BCA, CMP, 7-6, 21795-0, 94513-1, 00011-3, PINR, 83290-9, 2639-3 #### [facility] ([id number]) [address] [place] [address] 55590 Erythrocyte distribution width (RBC) [Ratio] 15.7 % High 11.5-15.0 [facility] Comment on above: Performed By: #### C BCA, CMP, 2156-6, 82106-3, 47414-6, 39331-3, PINR, 40315-6, 2639-3 #### [facility] ([id number]) [address] [place] [address] 74265 Hematocrit (Bld) [Volume fraction] 36.8 % Normal 35-47 [facility] Comment on above: Performed By: #### C BCA, CMP, 2156-6, 38590-2, 05187-2, 30770-9, PINR, 02409-7, 2639-3 #### [facility] ([id number]) [address] [place] [address] 82008 Hemoglobin (Bld) [Mass/Vol] 12.3 g/dL Normal 11.7-15.5 [facility] Comment on above: Performed By: #### C BCA, CMP, 2156-6, 94429-8, 64740-9, 55239-4, PINR, 70878-3, 2639-3 #### [facility] ([id number]) [address] [place] [address] 67772 Lymphocytes (Bld) [#/Vol] 0.9 10*3/uL Low 1.0-3.5 [facility] Comment on above: Performed By: #### C BCA, CMP, 2156-6, 96573-2, 78772-6, 06546-2, PINR, 96059-5, 2639-3 #### [facility] ([id number]) [address] [place] [address] 26089 Lymphocytes/100 WBC (Bld) 11.3 % Normal [facility] Comment on above: Performed By: #### C BCA, CMP, 2156-, 70784-9, 42844-4, 07494-1, PINR, 73970-4, 2639-3 #### [facility] ([id number]) [address] [place] [address] 92987 MCH (RBC) [Entitic mass] 27.8 pg Normal 27-34 [facility] Comment on above: Performed By: #### C BCA, CMP, 2156-10, 84828-8, 83127-3, 54580-6, PINR, 42597-9, 2639-3 #### [facility] ([id number]) [address] [place] [address] 58036 MCHC (RBC) [Mass/Vol] 33.4 g/dL Normal 32-36 [facility] Comment on above: Performed By: #### C BCA, CMP, 2156-10, 67868-8, 04752-2, 93736-8, PINR, 15320-1, 2639-3 #### [facility] ([id number]) [address] [place] [address] [place] [address] MCV (RBC) [Entitic vol] 83 fL Normal 80-100 [facility] Comment on above: Performed By: #### C BCA, CMP, 2156-6, 07887-5, 86809-0, 86738-5, PINR, 87755-9, 2639-3 #### [facility] ([id number]) [address] [place] [address] [place] [address] Monocytes (Bld) [#/Vol] 0.8 10*3/uL Normal 0-0.9 [facility] Comment on above: Performed By: #### C BCA, CMP, 2156-6, 93703-9, 54704-3, 57603-1, PINR, 92788-1, 2639-3 #### [facility] ([id number]) [address] [place] [address] 47800 Monocytes/100 WBC (Bld) 10.5 % Normal [facility] Comment on above: Performed By: #### C BCA, CMP, 2156-, 49826-5, 92907-3, 32498-7, PINR, 38577-9, 2639-3 #### [facility] ([id number]) [address] [place] [address] 02226 Neutrophils/100 WBC (Bld) 76.1 % Normal [facility] Comment on above: Performed By: #### C BCA, CMP, 2156-, 55337-9, 59012-8, 81398-3, PINR, 28036-0, 2639-3 #### [facility] ([id number]) [address] [place] [address] 67624 Platelet mean volume (Bld) [Entitic vol] 9.1 fL Normal 7-12 [facility] Comment on above: Performed By: #### C BCA, CMP, 2156-, 05907-1, 63789-3, 19560-4, PINR, 20873-1, 2639-3 #### [facility] ([id number]) [address] [place] [address] 81496 Platelets (Bld) [#/Vol] 188 10*3/uL Normal 150-450 [facility] Comment on above: Performed By: #### C BCA, CMP, 2156-, 88359-0, 05368-2, 68537-1, PINR, 48023-9, 2639-3 #### [facility] ([id number]) [address] [place] [address] 86363 RBC COUNT 4.42 X10E12/L Normal 3.80-5.20 [facility] Comment on above: Performed By: #### C BCA, CMP, 2157-6, 76352-1, 01906-0, 31762-9, PINR, 00129-5, 2639-3 #### [facility] ([id number]) [address] [place] [address] 34737 WBC (Bld) [#/Vol] 7.7 10*3/uL Normal 4.0-11.0 [facility] Comment on above: Performed By: #### C BCA, CMP, 2157-6, 63888-7, 48896-3, 10801-6, PINR, 78713-0, 2639-3 #### [facility] ([id number]) [address] [place] [address] 34008 CK [Catalytic activity/Vol]o n 08-29-2024 CPK 1666 U/L High 24-170 [facility] Comment on above: Performed By: #### C BCA, CMP, 2157-6, 45158-8, 45795-3, 89452-2, PINR, 35839-6, 2639-3 #### [facility] ([id number]) [address] [place] [address] 85385 CPK 2774 U/L High 24-170 [facility] Comment on above: Performed By: #### C BCA, CMP, 2157-6, 13924-6, 48001-2, 63497-2, PINR, 79756-9, 2639-3 #### [facility] ([id number]) [address] [place] [address] 68100 CPK 3580 U/L High 24-170 [facility] Comment on above: Performed By: #### C BCA, CMP, 2157-6, 07393-6, 36268-4, 55614-2, PINR, 66364-7, 2639-3 #### [facility] ([id number]) [address] [place] [address], [place] [address] COMPREHENSIVE METABOLIC PANE Antoni 08-29-2024 Albumin [Mass/Vol] 2.7 g/dL Low 3.2-5.3 [facility] Comment on above: Performed By: #### C BCA, CMP, 2157-6, 17004-2, 85479-8, 82550-6, PINR, 57090-1, 2639-3 #### [facility] ([id number]) [address] [place] [address], [place] [address] ALP [Catalytic activity/Vol] 60 U/L Normal 39-130 [facility] Comment on above: Performed By: #### C BCA, CMP, 2156-6, 88759-8, 38773-9, 18499-7, PINR, 59626-5, 2639-3 #### [facility] ([id number]) [address] [place] [address], [place] [address] ALT [Catalytic activity/Vol] 46 U/L High 0-31 [facility] Comment on above: Performed By: #### C BCA, CMP, 7-6, 84758-0, 98520-6, 80856-0, PINR, 52557-8, 2639-3 #### [facility] ([id number]) [address] [place] [address], [place] [address] Anion gap [Moles/Vol] 8 mmol/L Normal 5-15 [facility] Comment on above: Performed By: #### C BCA, CMP, 2157-6, 58956-5, 97661-7, 78995-3, PINR, 59923-9, 2639-3 #### [facility] ([id number]) [address] [place] [address] 54890 AST [Catalytic activity/Vol] 94 U/L High 0-41 [facility] Comment on above: Performed By: #### C BCA, CMP, 2156-6, 13475-0, 27609-9, 71626-5, PINR, 21561-3, 2639-3 #### [facility] ([id number]) [address] [place] [address] 15906 Bilirubin [Mass/Vol] 0.5 mg/dL Normal 0.3-1.2 [facility] Comment on above: Performed By: #### C BCA, CMP, 2156-6, 39419-7, 26161-0, 30454-5, PINR, 77463-6, 2639-3 #### [facility] ([id number]) [address] [place] [address] 84314 Calcium [Mass/Vol] 8.0 mg/dL Low 8.5-10.5 [facility] Comment on above: Performed By: #### C BCA, CMP, 2156-6, 13513-4, 17116-8, 26540-9, PINR, 82797-7, 2639-3 #### [facility] ([id number]) [address] [place] [address] 06756 Chloride [Moles/Vol] 112 mmol/L High 98-109 [facility] Comment on above: Performed By: #### C BCA, CMP, 2156-6, 48950-9, 66998-2, 05786-7, PINR, 41358-6, 2639-3 #### [facility] ([id number]) [address] [place] [address] 18827 CO2 [Moles/Vol] 20 mmol/L Low 22-32 [facility] Comment on above: Performed By: #### C BCA, CMP, 2156-6, 15109-6, 69436-3, 72542-5, PINR, 04825-6, 2639-3 #### [facility] ([id number]) [address] [place] [address] 89314 Creatinine [Mass/Vol] 0.86 mg/dL Normal 0.40-1.00 [facility] Comment on above: Result Comment: METH OD TRACEABLE TO IDMS STANDARD Performed By: #### C BCA, CMP, 2156-6, 03504-9, 50985-4, 51605-5, PINR, 83499-9, 2639-3 #### [facility] ([id number]) [address] [place] [address] 78569 GFR/1.73 sq M.predicted among non-blacks MDRD (S/P/Bld) [Vol rate/Area] 79 mL/min/{1.73_m2} Normal >59 [facility] Comment on above: Result Comment: Reported eGFR is based on the CKD-EPI 2020 equation that does not use a race coefficient. Performed By: #### C BCA, CMP, 2156-6, 30890-7, 06898-5, 56559-7, PINR, 09643-4, 2639-3 #### [facility] ([id number]) [address] [place] [address] 12084 Glucose [Mass/Vol] 91 mg/dL Normal 65-99 [facility] Comment on above: Performed By: #### C BCA, CMP, 2156-6, 64947-5, 47792-3, 57427-4, PINR, 31746-3, 2639-3 #### [facility] ([id number]) [address] [place] [address] 40797 Potassium [Moles/Vol] 4.0 mmol/L Normal 3.5-5.0 [facility] Comment on above: Performed By: #### C BCA, CMP, 2157-6, 05315-7, 06017-2, 43512-0, PINR, 29979-7, 2639-3 #### [facility] ([id number]) [address] [place] [address] 91088 Protein [Mass/Vol] 6.4 g/dL Normal 6.0-8.0 [facility] Comment on above: Performed By: #### C BCA, CMP, 2156-6, 59568-9, 68820-5, 50050-3, PINR, 30510-2, 2639-3 #### [facility] ([id number]) [address] [place] [address] 50370 Sodium [Moles/Vol] 140 mmol/L Normal 134-146 [facility] Comment on above: Performed By: #### C BCA, CMP, 2156-6, 72770-0, 17242-1, 72797-4, PINR, 47943-4, 2639-3 #### [facility] ([id number]) [address] [place] [address] 02462 Urea nitrogen [Mass/Vol] 10 mg/dL Normal 5-23 [facility] Comment on above: Performed By: #### C BCA, CMP, 2156-6, 36770-7, 28749-8, 81609-6, PINR, 71455-1, 2639-3 #### [facility] ([id number]) [address] [place] [address] 14023 Calcium.ionized (Bld) [Moles /Vol]on 08-29-2024 PORTABLE ICA 4.6 mg/dL Normal 4.5-5.3 [facility] Comment on above: Performed By: #### C BCA, CMP, 2156-6, 52575-4, 62400-1, 51804-1, PINR, 73172-9, 2639-3 #### [facility] ([id number]) [address] [place] [address] 27008 Lipid 1996 panelon Cholesterol [Mass/Vol] 151 mg/dL Normal 150-200 [facility] Comment on above: Performed By: #### C BCA, CMP, 7-6, 78048-6, 98064-8, 91039-9, PINR, 50705-4, 2639-3 #### [facility] ([id number]) [address] [place] [address] 46397 Cholesterol in HDL [Mass/Vol] 29 mg/dL Low >39 [facility] Comment on above: Result Comment: HDL <40 mg/dL - High Risk HDL > or = 40mg/dL- Desirable HDL >60 mg/dL - Negative Risk Performed By: #### C BCA, CMP, 2156-6, 12456-7, 79229-7, 25748-1, PINR, 20134-7, 2639-3 #### [facility] ([id number]) [address] [place] [address] 71923 Cholesterol in LDL [Mass/Vol] 100 mg/dL Normal <130 [facility] Comment on above: Result Comment: LDL <100 mg/dL - Desirable LDL >160 mg/dL - High Risk Performed By: #### C BCA, CMP, 2156-6, 22645-3, 17104-8, 81742-0, PINR, 98214-7, 2639-3 #### [facility] ([id number]) [address] [place] [address] 76474 Cholesterol in VLDL [Mass/Vol] 22 mg/dL Normal 0-30 [facility] Comment on above: Performed By: #### C BCA, CMP, 7-6, 40506-1, 55740-1, 47074-5, PINR, 82018-3, 2639-3 #### [facility] ([id number]) [address] [place] [address] 39855 CHOLESTEROL:HDL 5.2 High 1.0-5.0 [facility] Comment on above: Performed By: #### C BCA, CMP, 2156-, 40766-1, 55703-5, 85065-1, PINR, 59446-5, 2639-3 #### [facility] ([id number]) [address] [place] [address] 21509 Triglyceride [Mass/Vol] 112 mg/dL Normal 27-150 [facility] Comment on above: Performed By: #### C BCA, CMP, 2156-, 85234-3, 58914-9, 10222-3, PINR, 05385-3, 2639-3 #### [facility] ([id number]) [address] [place] [address] 67059 MAGNESIUMon 08-29-2024 Magnesium [Mass/Vol] 2.1 mg/dL Normal 1.8-2.6 [facility] Comment on above: Performed By: #### C BCA, CMP, 2156-, 43671-9, 12487-5, 39390-9, PINR, 74030-7, 2639-3 #### [facility] ([id number]) [address] [place] [address] 44940 Magnesium [Mass/Vol] 1.9 mg/dL Normal 1.8-2.6 [facility] Comment on above: Performed By: #### C BCA, CMP, 2156-10, 40864-6, 57183-3, 31988-8, PINR, 72618-5, 2639-3 #### [facility] ([id number]) [address] [place] [address] 40280 Myoglobin [Mass/Vol]on 08-29 SERUM MYOGLOBIN 96.4 ng/mL High 14.3-65.8 [facility] Comment on above: Performed By: #### C BCA, CMP, 2156-6, 32081-0, 50778-9, 24316-7, PINR, 66776-5, 2639-3 #### [facility] ([id number]) [address] [place] [address] 01849 SERUM MYOGLOBIN 230.3 ng/mL High 14.3-65.8 [facility] Comment on above: Performed By: #### C BCA, CMP, 2156-, 55500-5, 70745-2, 56586-7, PINR, 15983-7, 2639-3 #### [facility] ([id number]) [address] [place] [address] 55842 SERUM MYOGLOBIN 374.0 ng/mL High 14.3-65.8 [facility] Comment on above: Performed By: #### C BCA, CMP, 2156-10, 04196-5, 17247-4, 87298-3, PINR, 03222-3, 2639-3 #### [facility] ([id number]) [address] [place] [address] [place] [address] CBC AND AUTO DIFFon --20 25 ABSOLUTE BASOPHIL 0.0 X10E9/L Normal 0.0-0.2 [facility] Comment on above: Performed By: #### C BCA, CMP, 2156-, 13359-4, 25484-1, 07722-9, PINR, 18475-0, 2639-3 #### [facility] ([id number]) [address] [place] [address] 87530 ABSOLUTE NEUTROPHIL 12.1 X10E9/L High 1.5-6.6 [facility] Comment on above: Performed By: #### C BCA, CMP, 2156-, 21548-3, 12687-3, 95188-2, PINR, 68182-9, 2639-3 #### [facility] ([id number]) [address] [place] [address] 61988 Basophils/100 WBC (Bld) 0.2 % Normal [facility] Comment on above: Performed By: #### C BCA, CMP, 7-6, 34827-3, 97677-2, 34052-5, PINR, 36368-6, 2639-3 #### [facility] ([id number]) [address] [place] [address] 80402 Eosinophils (Bld) [#/Vol] 0.0 10*3/uL Normal 0.0-0.4 [facility] Comment on above: Performed By: #### C BCA, CMP, 2156-6, 93267-4, 53073-5, 21444-8, PINR, 82877-5, 2639-3 #### [facility] ([id number]) [address] [place] [address] 16471 Eosinophils/100 WBC (Bld) 0.1 % Normal [facility] Comment on above: Performed By: #### C BCA, CMP, 2156-6, 11388-2, 48735-8, 74927-2, PINR, 85866-3, 2639-3 #### [facility] ([id number]) [address] [place] [address] 63428 Erythrocyte distribution width (RBC) [Ratio] 15.7 % High 11.5-15.0 [facility] Comment on above: Performed By: #### C BCA, CMP, 2156-6, 63401-8, 84493-5, 43674-5, PINR, 53966-9, 2639-3 #### [facility] ([id number]) [address] [place] [address] 47963 Hematocrit (Bld) [Volume fraction] 40.3 % Normal 35-47 [facility] Comment on above: Performed By: #### C BCA, CMP, 2156-6, 49726-6, 42677-1, 52697-6, PINR, 22388-8, 2639-3 #### [facility] ([id number]) [address] [place] [address] 84818 Hemoglobin (Bld) [Mass/Vol] 13.5 g/dL Normal 11.7-15.5 [facility] Comment on above: Performed By: #### C BCA, CMP, 2156-6, 20699-6, 32833-6, 84737-1, PINR, 38243-9, 2639-3 #### [facility] ([id number]) [address] [place] [address] 76966 Lymphocytes (Bld) [#/Vol] 0.6 10*3/uL Low 1.0-3.5 [facility] Comment on above: Performed By: #### C BCA, CMP, 2156-6, 23360-4, 04606-8, 28136-6, PINR, 97337-2, 2639-3 #### [facility] ([id number]) [address] [place] [address] 45542 Lymphocytes/100 WBC (Bld) 4.6 % Normal [facility] Comment on above: Performed By: #### C BCA, CMP, 2156-6, 65336-5, 84285-1, 64808-7, PINR, 15098-0, 2639-3 #### [facility] ([id number]) [address] [place] [address] 82423 MCH (RBC) [Entitic mass] 28.0 pg Normal 27-34 [facility] Comment on above: Performed By: #### C BCA, CMP, 2156-6, 00554-5, 97443-9, 05026-4, PINR, 44072-3, 2639-3 #### [facility] ([id number]) [address] [place] [address] 90754 MCHC (RBC) [Mass/Vol] 33.6 g/dL Normal 32-36 [facility] Comment on above: Performed By: #### C BCA, CMP, 7-6, 74099-7, 55172-3, 69209-2, PINR, 42875-6, 2639-3 #### [facility] ([id number]) [address] [place] [address] 01377 MCV (RBC) [Entitic vol] 83 fL Normal 80-[address] [facility] Comment on above: Performed By: #### C BCA, CMP, 2156-6, 23353-0, 72270-0, 83149-4, PINR, 64456-1, 2639-3 #### [facility] ([id number]) [address] [place] [address] 98062 Monocytes (Bld) [#/Vol] 1.4 10*3/uL High 0-0.9 [facility] Comment on above: Performed By: #### C BCA, CMP, 2156-6, 78747-8, 70284-7, 97609-6, PINR, 09846-2, 2639-3 #### [facility] ([id number]) [address] [place] [address] 77713 Monocytes/100 WBC (Bld) 9.9 % Normal [facility] Comment on above: Performed By: #### C BCA, CMP, 2156-6, 65051-5, 95168-8, 42359-0, PINR, 67108-1, 2639-3 #### [facility] ([id number]) [address] [place] [address] 93860 Neutrophils/100 WBC (Bld) 85.2 % Normal [facility] Comment on above: Performed By: #### C BCA, CMP, 2156-6, 82950-0, 16882-6, 28950-6, PINR, 34945-5, 2639-3 #### [facility] ([id number]) [address] [place] [address] 01301 Platelet mean volume (Bld) [Entitic vol] 9.0 fL Normal 7-12 [facility] Comment on above: Performed By: #### C BCA, CMP, 7-6, 97622-9, 78084-1, 70656-7, PINR, 04163-0, 2639-3 #### [facility] ([id number]) [address] [place] [address] 15231 Platelets (Bld) [#/Vol] 239 10*3/uL Normal 150-450 [facility] Comment on above: Performed By: #### C BCA, CMP, 7-6, 16700-4, 13417-0, 65124-9, PINR, 86164-9, 2639-3 #### [facility] ([id number]) [address] [place] [address] 26443 RBC COUNT 4.83 X10E12/L Normal 3.80-5.20 [facility] Comment on above: Performed By: #### C BCA, CMP, 7-6, 95901-9, 41070-5, 01597-5, PINR, 24006-7, 2639-3 #### [facility] ([id number]) [address] [place] [address] 87075 WBC (Bld) [#/Vol] 14.2 10*3/uL High 4.0-11.0 [facility] Comment on above: Performed By: #### C BCA, CMP, 2157-6, 51409-4, 03057-4, 41361-0, PINR, 47132-2, 2639-3 #### [facility] ([id number]) [address] [place] [address] 42334 CK [Catalytic activity/Vol]o n 08-28-2024 CPK 4648 U/L High 24-170 [facility] Comment on above: Performed By: #### C BCA, CMP, 2157-6, 76716-5, 21713-9, 51431-5, PINR, 00347-1, 2639-3 #### [facility] ([id number]) [address] [place] [address], [place] [address] CPK 3034 U/L High 24-170 [facility] Comment on above: Performed By: #### C BCA, CMP, 2157-6, 72326-8, 61702-3, 69147-1, PINR, 56562-3, 2639-3 #### [facility] ([id number]) [address] [place] [address] [place] [address] COMPREHENSIVE METABOLIC PANE Antoni 08-28-2024 Albumin [Mass/Vol] 3.5 g/dL Normal 3.2-5.3 [facility] Comment on above: Performed By: #### C BCA, CMP, 2157-6, 41707-0, 79166-9, 80431-4, PINR, 90475-6, 2639-3 #### [facility] ([id number]) [address] [place] [address], [place] [address] ALP [Catalytic activity/Vol] 86 U/L Normal 39-130 [facility] Comment on above: Performed By: #### C BCA, CMP, 2157-6, 49181-7, 86178-9, 82573-6, PINR, 85802-0, 2639-3 #### [facility] ([id number]) [address] [place] [address] [place] [address] ALT [Catalytic activity/Vol] 32 U/L High 0-31 [facility] Comment on above: Performed By: #### C BCA, CMP, 2157-6, 39877-5, 24923-1, 23348-5, PINR, 04685-1, 2639-3 #### [facility] ([id number]) [address] [place] [address] 96460 Anion gap [Moles/Vol] 10 mmol/L Normal 5-15 [facility] Comment on above: Performed By: #### C BCA, CMP, 2156-, 61396-1, 28694-2, 60552-9, PINR, 57196-5, 2639-3 #### [facility] ([id number]) [address] [place] [address] 74294 AST [Catalytic activity/Vol] 62 U/L High 0-41 [facility] Comment on above: Performed By: #### C BCA, CMP, 2156-, 93249-5, 60728-2, 51926-4, PINR, 32624-1, 2639-3 #### [facility] ([id number]) [address] [place] [address] 68195 Bilirubin [Mass/Vol] 0.6 mg/dL Normal 0.3-1.2 [facility] Comment on above: Performed By: #### C BCA, CMP, 2156-10, 77175-0, 32783-6, 24762-0, PINR, 16242-9, 2639-3 #### [facility] ([id number]) [address] [place] [address] 62997 Calcium [Mass/Vol] 9.4 mg/dL Normal 8.5-10.5 [facility] Comment on above: Performed By: #### C BCA, CMP, 2156-6, 76878-8, 25091-4, 93233-4, PINR, 18015-3, 2639-3 #### [facility] ([id number]) [address] [place] [address] 34850 Chloride [Moles/Vol] 107 mmol/L Normal 98-109 [facility] Comment on above: Performed By: #### C BCA, CMP, 2156-10, 43454-3, 31416-8, 20631-6, PINR, 99050-5, 2639-3 #### [facility] ([id number]) [address] [place] [address] 43659 CO2 [Moles/Vol] 24 mmol/L Normal 22-32 [facility] Comment on above: Performed By: #### C BCA, CMP, 2156-6, 34614-8, 38579-0, 90714-7, PINR, 50644-2, 2639-3 #### [facility] ([id number]) [address] [place] [address] 58679 Creatinine [Mass/Vol] 1.27 mg/dL High 0.40-1.00 [facility] Comment on above: Result Comment: METH OD TRACEABLE TO IDMS STANDARD Performed By: #### C BCA, CMP, 2156-10, 07774-1, 75787-6, 97065-8, PINR, 62677-5, 2639-3 #### [facility] ([id number]) [address] [place] [address] 70147 GFR/1.73 sq M.predicted among non-blacks MDRD (S/P/Bld) [Vol rate/Area] 50 mL/min/{1.73_m2} Low >59 [facility] Comment on above: Result Comment: Reported eGFR is based on the CKD-EPI 2020 equation that does not use a race coefficient. Performed By: #### C BCA, CMP, 2156-6, 19617-2, 48955-4, 87458-7, PINR, 50370-9, 2639-3 #### [facility] ([id number]) [address] [place] [address] 20998 Glucose [Mass/Vol] 137 mg/dL High 65-99 [facility] Comment on above: Performed By: #### C BCA, CMP, 2156-6, 24475-9, 75910-8, 84437-5, PINR, 50057-9, 2639-3 #### [facility] ([id number]) [address] [place] [address] 43917 Potassium [Moles/Vol] 3.8 mmol/L Normal 3.5-5.0 [facility] Comment on above: Performed By: #### C BCA, CMP, 2157-6, 53609-2, 16581-3, 98892-2, PINR, 40347-2, 2639-3 #### [facility] ([id number]) [address] [place] [address] 56131 Protein [Mass/Vol] 8.1 g/dL High 6.0-8.0 [facility] Comment on above: Performed By: #### C BCA, CMP, 7-6, 58753-1, 82110-7, 50106-4, PINR, 96456-5, 2639-3 #### [facility] ([id number]) [address] [place] [address] 01680 Sodium [Moles/Vol] 141 mmol/L Normal 134-146 [facility] Comment on above: Performed By: #### C BCA, CMP, 2157-6, 63291-5, 01267-5, 97583-8, PINR, 54443-1, 2639-3 #### [facility] ([id number]) [address] [place] [address] 53773 Urea nitrogen [Mass/Vol] 15 mg/dL Normal 5-23 [facility] Comment on above: Performed By: #### C BCA, CMP, 2157-6, 43346-3, 28252-5, 33101-4, PINR, 40067-3, 2639-3 #### [facility] ([id number]) [address] [place] [address] CTA CHESTon 08-28-2024 CT CTA CHEST [...] for acute or suspicious pathology in the tiaub-cl-ibtu. The trachea and bronchi are patent. No [...] Saini MD on 08/28/2024 12:40 PM Normal [facility] Fibrin D-dimer DDU (PPP) [Ma ss/Vol]on 08-28-2024 D DIMER 5157 ng/mL DDU High <255 [facility] Comment on above: Result Comment: Results [...] Performed By: #### C BCA, CMP, 2157-6, 96941-4, 85614-3, 13387-0, PINR, 00360-9, 2639-3 #### [facility] ([id number]) [address] [place] [address], [place] [address] MAGNESIUMon 08-28-2024 Magnesium [Mass/Vol] 1.9 mg/dL Normal 1.8-2.6 [facility] Comment on above: Performed By: #### C BCA, CMP, 2156-10, 95271-5, 91198-1, 04436-2, PINR, 21941-9, 2639-3 #### [facility] ([id number]) [address] [place] [address] 42830 Magnesium [Mass/Vol] 2.0 mg/dL Normal 1.8-2.6 [facility] Comment on above: Performed By: #### C BCA, CMP, 2156-10, , 42527-0, 80798-6, PINR, 13559-7, 2639-3 #### [facility] ([id number]) [address] [place] [address] 42634 Myoglobin [Mass/Vol]on 08-28 SERUM MYOGLOBIN 1035.9 ng/mL High 14.3-65.8 [facility] Comment on above: Performed By: #### C BCA, CMP, 2156-10, 78731-1, 39527-4, 78594-3, PINR, 07098-3, 2639-3 #### [facility] ([id number]) [address] [place] [address] 06341 SERUM MYOGLOBIN 4039.8 ng/mL High 14.3-65.8 [facility] Comment on above: Performed By: #### C BCA, CMP, 2156-10, 10232-4, 14876-1, 06533-0, PINR, 17278-4, 2639-3 #### [facility] ([id number]) [address] [place] [address] 10621 POTASSIUMon 08-28-2024 Potassium [Moles/Vol] 3.2 mmol/L Low 3.5-5.0 [facility] Comment on above: Performed By: #### C BCA, CMP, 2157-6, 97247-8, 37200-7, 56808-1, PINR, 71321-0, 2639-3 #### [facility] ([id number]) [address] [place] [address] 23221 PROTIME AND INRon 08-28-2024 INR Coag (PPP) [Relative time] 1.3 {INR} High 0.9-1.2 [facility] Comment on above: Performed By: #### C BCA, CMP, 2157-6, 99626-3, 19883-3, 25614-6, PINR, 68231-3, 2639-3 #### [facility] ([id number]) [address] [place] [address] 47030 PT Coag (PPP) [Time] 15.0 s High 9.8-13.2 [facility] Comment on above: Result Comment: NEW REFERENCE RANGE Performed By: #### C BCA, CMP, 2157-6, 63703-5, 24695-4, 20129-3, PINR, 78638-9, 2639-3 #### [facility] ([id number]) [address] [place] [address] SARS/FLU A+B/RSV by NAAT/Mol ecularon 08-28-2024 SARS/FLU [...] operators who are performing tests using either Vapps DX or GeneI-Tech systems and is limited to laboratories that [...] repeat. Fact Sheet for Healthcare Providers: https://www.fda.gov/m edia/322108/download Fact Sheet for Patients: https://www.fda.gov/m edia/130285/download Normal [facility] Comment on above: Performed By: #### C BCA, CMP, 2157-6, 65094-2, 74057-1, 28636-3, PINR, 13488-0, 2639-3 #### [facility] ([id number]) [address] [place] [address], [place] [address] Troponin I.cardiac High sens itivity method [Mass/Vol]on 08-28-2024 3 HOUR TROP I, HIGH SENSITIVITY 42 ng/L High <16 [facility] Comment on above: Result Comment: Elevations of hs-Troponin may be due to causes other than myocardial ischemia. Recommend serial hs-Troponin testing be performed. For the initial evaluation and management of chest pain patients, refer to the algorithms linked below. Emergency Patient: https://www.VANCL.Pole Star/dv/dl.aspx?p=[email or web address]&dh=1cc5a&x=4973 5&uh=acaea Inpatient: https://www.VANCL.[place] Star/dv/dl.aspx?m=5050782&dh=f72e7&o=0103 5&uh=acaea Performed By: #### C BCA, CMP, 2157-6, 66699-7, 68790-7, 93539-7, PINR, 31429-5, 2639-3 #### [facility] ([id number]) [address] [place] [address] 1 HOUR TROP I, HIGH SENSITIVITY 34 ng/L High <16 [facility] Comment on above: Result Comment: Elevations of hs-Troponin may be due to causes other than myocardial ischemia. Recommend serial hs-Troponin testing be performed. For the initial evaluation and management of chest pain patients, refer to the algorithms linked below. Emergency Patient: https://www.Mandata (Management & Data Services)/dv/dl.aspx?b=3787845&dh=1cc5a&k=2306 5&uh=acaea Inpatient: https://www.Mandata ([employer])/dv/dl.aspx?q=3133513&dh=f72e7&c=0182 5&uh=acaea Performed By: #### C BCA, CMP, 2157-6, 54410-6, 64162-1, 75897-1, PINR, 69620-9, 2639-3 #### [facility] ([id number]) [address] [place] [address] TROPONIN I, HIGH SENSITIVITY 29 ng/L High <16 [facility] Comment on above: Result Comment: Elevations of hs-Troponin may be due to causes other than myocardial ischemia. Recommend serial hs-Troponin testing be performed. For the initial evaluation and management of chest pain patients, refer to the algorithms linked below. Emergency Patient: https://www.Mandata (Management & Data Services)/dv/dl.aspx?j=2818240&dh=1cc5a&t=3666 5&uh=acaea Inpatient: https://www.Mandata (Management [employer] Services)/dv/dl.aspx?z=1471308&dh=f72e7&n=8362 5&uh=acaea Performed By: #### C TEDDY, CMP, 2157-6, 28780-6, 87665-6, 15502-1, PINR, 90126-8, 2639-3 #### [facility] ([id number]) [address] [place] [address] XR CHEST 1 VWon 08-28-2024 XR CHEST 1 VW XR CHEST 1 VW Portable chest: HISTORY: Cough and weakness. Single view of the chest was obtained. Cardiac and mediastinal contours are within normal limits. Lungs clear. There is no vascular congestion or effusion. IMPRESSION: Negative exam. Finalized by Gian Gilbert MD on 08/28/2024 10:58 AM Normal [facility] aPTT Coag (PPP) [Time]on aPTT Coag (Bld) [Time] 31 s Normal 26-37 Pr [facility] Comment on above: Result Comment: NEW REFERENCE RANGE Performed By: #### C BCA, CMP, 2157-6, 14026-7, 51625-0, 63351-5, PINR, 00414-6, 2639-3 #### [facility] ([id number]) [address] [place] [address] Urine Cultureon 08-22-2024 Bacteria identified Cx Nom (U) ORGANISM: Proteus mirabilis (O:PROMIR) [place] Count >100,000 Aerobic ROSE Charge (NMIC56) ---- [...] RESISTANT TO ALL B-LACTAM DRUGS. PERFORMED BY: [place] [address] PATHOLOGIST TEACHING FELLOW CLAIRE PATEL M.D. Normal [facility] Comment on above: Performed By: #### C UU #### [address] Urine cultureOrdered By: Julio Gruber on 08-22-2024 Bacteria identified Cx Nom (U) Abnormal [facility] Bacteria identified Cx Nom (U) Proteus mirabilis Abnormal [facility] MM TOMOSYNTHESIS SCREENING B Ion 06-30-2024 [place] [address] Mammography Report Signed Patient: ANUPAMA VASQUEZ MR#: [id number] : 1970 Acct:[id number] Age/Sex: 54 / F ADM Date: 06/30/24 Loc: MAMMO Attending Dr: Fred Gracia NP Ordering Physician: Fred Gracia NP Results: Date of Service: 06/30/24 Follow Up: Procedure(s): MM tomosynthesis screening BI Accession Number(s): [id number] cc: Fred Gracia NP Patient Name: ANUPAMA VASQUEZ MR#: [id number] : 1970 Exam Date: 06/30/2024 Ordering Doctor: [...] throat/lung cancer at age 56. LOCATION: The [facility] BREAST COMPOSITION: There are scattered areas [...] Signed By: 06/30/24 1133 DD/ 1132 TD/TT: Fruit Checker: [facility] Radiology, Radiologist, - 06/30/2024 [place] [address] Mammography Report Signed Patient: ANUPAMA VASQUEZ MR#: [id number] : 1970 Acct:[id number] Age/Sex: 54 / F ADM Date: 06/30/24 Loc: MAMMO Attending Dr: Fred Gracia NP Ordering Physician: Fred Gracia NP Results: Date of Service: 06/30/24 Follow Up: Procedure(s): MM tomosynthesis screening BI Accession Number(s): [id number] cc: Fred Gracia NP Patient Name: ANUPAMA VASQUEZ MR#: [id number] : 1970 Exam Date: 06/30/2024 Ordering Doctor: [...] throat/lung cancer at age 56. LOCATION: The [facility] BREAST COMPOSITION: There are scattered areas [...] Signed By: 06/30/24 1133 DD/ 1132 TD/TT: Fruit Checker: DA [employer] Radiology Study observation (narrative) [facility] MM TOMOSYNTHESIS SCREENING B IOrdered By: Radiologist Radiology on 06-30-2024 [employer] Work Phone: No Panel Informationon 04-27 Alona [...] to verify the correct patient, procedure, equipment, marketing support specialist and site/side marked as required. Patient was prepped and draped in the usual sterile fashion. [employer] XR Shoulder - left 2 Viewson 02-25-2024 Imaging Result: Two views, AP and Lateral, in the office taken today saved to the permanent record shows post surgical change with acromioplasty/partial distal clavulectomy with appropriate coplaning. No acute fracture, dislocation, tumor or infection seen. [facility] Rad[facility] Study observation (narrative) [facility]are Main OR Intraoperative Recor don 02-11-2024 Main OR Intraoperative Record Main OR Intraoperative Record IntraOp Document Type FT Summary Primary Physician: Eliazar Brooks DO Finalized Date/Time: 02/11/24 14:09:06 Pt. Name: PEDROANUPAMA/Sex: 1970 Female Med Rec #: [id number] Physician: Eliazar Brooks DO Financial #: [id number] Pt. Type: A Room/Bed: Admit/Disch: 02/10/24 11:39:41 [...] 2 Entry 3 Case Attendee Cynthia BROWN, MANAGER SHOP, [place] Eliazar Brooks DOhelsavita PAYNE, Marlyn Campuzano Role Performed MANAGER SHOP Surgeon - Primary Scrub - Primary Time [...] Attendee Adams Pak Laura C Role Performed Hollow Core Door Frame Assembler - Primary Scrub - Primary Time In [...] PreOp Antibiotic Yes Given Time Out Mitkarlee DNP, MANAGER SHOP, Bhatt Time Out Complete 02/10/24 14:35:00 Participants N., Eliazar Brooks DO, Wilhelm CST, Macie C, Adams Pak Miller, Laura C Outcomes Met? [...] and tissue Entry 1 Skin Integrity Intact, [place], Warm, & Skin Abnormality No Dry Outcomes Met? Yes Last Modified By: Adams Pak 02/10/24 15:02:50 Post-Care Text: The patient is free from signs and symptoms of injury caused by extraneous objects Patient Positioning FT Pre-Care Text: Identifies physical alterations that require additional precautions for procedure-specific positioning, verifies presence of prosthetics (more content not included)... Normal [facility] Operative Reporton Operative Report Operative Report SURGERY DATE: 02/10/2024 HYDRAULIC BOOM OPERATOR: Marlyn Kate C.F.A. PREOPERATIVE DIAGNOSIS: Left shoulder [...] a lateral portal incision utilizing a 90-degree [place] wand as well as 5.0 bone cutter, [...] PATIENT CONDITION: Satisfactory Aguila Santamaria Dictated: 02/10/2024 [id number] Transcribed: 02/10/2024 Normal [facility] Comment on above: Result [...] scheduled appointment Call for any problems. Where: [address] [place] [phone]- [facility] (1) Medications What How Much When Why [...] needed for shoulder surgical pain. Pickup at [facility] Unchanged ergocalciferol (Vitamin D) 1,200 International [...] bedtime) as needed for Sleep Pharmacy Information [facility]: [address] [place], [place] [phone] Test Results No qualifying data available. Allergies No Known Allergies Problems Ongoing - Any problem that you are currently receiving treatment for. Menopause Mini stroke MS - Multiple sclerosis Smoker Education Materials [place], [place] [facility] AFTER YOUR SHOULDER ARTHROSCOPY [...] have any (more content not included)... Normal [facility] Comment on above: Result [...] ANUPAMA VASQUEZ/Sex: 1970 Female Med Rec #: [id number] Physician: Eliazar Brooks DO Financial #: [id number] Pt. Type: A Room/Bed: Admit/Disch: 02/10/24 11:39:41 [...] By: Meera Rose RN 02/10/24 16:23 Normal [facility] Main OR PACU II Recordon Main OR PACU II Record Main OR PACU II Record PACU Phase II Document Type FT Summary Primary Physician: Eliazar Brooks DO Finalized Date/Time: 02/10/24 18:07:34 Pt. Name: ANUPAMA VASQUEZ/Sex: 1970 Female Med Rec #: [id number] Physician: Eliazar Brooks DO Financial #: [id number] Pt. Type: A Room/Bed: Admit/Disch: 02/10/24 11:39:41 [...] By: Sherron Deleon RN 02/10/24 18:07 Normal [facility] Main OR Preoperative Recordo n 02-10-2024 Main OR Preoperative Record Main OR Preoperative Record PreOp Document Type FT Summary Primary Physician: Eliazar Brooks DO Finalized Date/Time: 02/10/24 15:51:36 Pt. Name: ANUPAMA VASQUEZ /Sex: 1970 Female Med Rec #: [id number] Physician: Eliazar Brooks DO Financial #: [id number] Pt. Type: A Room/Bed: Admit/Disch: 02/10/24 11:39:41 [...] 02/10/24 14:59 Adams Pak 02/10/24 15:51 Normal [facility] Proceduralon 02-10-2024 Procedural Procedural Patient: ANUPAMA [...] Using maximal sterile barrier technique per current [facility] guidelines including hand hygeine, Guidance (Ultrasound used [...] Cynthia CRNA under Dr Vega's supervision.. Normal [facility] Inpatient Patient Summaryon 02-06-2024 Inpatient Patient Summary Inpatient Patient Summary [address] [address] [facility] Clinical Discharge Instructions PERSON INFORMATION Name: ANUPAMA VASQUEZ PHYSICIANS Admitting Physician: Eliazar Brooks DO Attending Physician: Eliazar Brooks DO PCP: FRANCES AGUILERA CNP Discharge Diagnosis: Impingement of left shoulder Comment: PATIENT EDUCATION INFORMATION Instructions: Zbigniew - After Your Shoulder Arthroscopy (Revised 06/17/14) (CUSTOM) Medication Leaflets: Follow up: With: Address: When: Eliazar Brooks [address] [place] [address] [facility] (1) Comments: Keep scheduled appointment Type Location Start [facility] 02/10/2024 2:30 PM 02/10/2024 [...] Mouth 2 times a day. Comment: Normal [facility] Outpatient Surgery Discharge Instructionon 02-06-2024 Outpatient Surgery Discharge Instruction Outpatient Surgery Discharge Instruction [place] [id number] Patient Discharge Instructions PERSON INFORMATION Name: RADHA VASQUEZLEY Ayleen Date of : 1970 Current Date: 02/06/2024 [...] Follow up: With: Address: When: Eliazar Brooks [address] [place], [place] [id number] [facility] (1) Comments: Keep scheduled appointment Type Location Start [facility] 02/10/2024 2:30 PM 02/10/2024 [...] times a day. PATIENT EDUCATION INFORMATION Instructions: [place], [place] [facility] AFTER YOUR SHOULDER ARTHROSCOPY [...] medication as (more content not included)... Normal [facility] XR Chest 2 Viewson 4 XR Chest 2 Views Exam Date/Time: 02/05/2024 10:22 EDT Reason for Exam: P.AJens. Report IMPRESSION: NO RADIOGRAPHIC EVIDENCE OF ACTIVE [...] mGy = . DAP = . Normal [facility] BMPon 02-05-2024 Anion gap [Moles/Vol] 11 mmol/L Normal 6-16 [facility] Comment on above: Performed By: #### 2 266433 #### [facility] [address] [place] [address] Calcium [Mass/Vol] 9.4 mg/dL Normal 8.9-11.1 [facility] Comment on above: Performed By: #### 2 272839 #### [facility] [address] [place] [address] Chloride [Moles/Vol] 104 mmol/L Normal 101-111 [facility] Comment on above: Performed By: #### 2 996781 #### [facility] [address] [place] [address] CO2 [Moles/Vol] 31 mmol/L Normal 21-31 [facility] Comment on above: Performed By: #### 2 994924 #### [facility] [address] [place] [address] Creatinine [Mass/Vol] 0.9 mg/dL Normal 0.5-1.3 [facility] Comment on above: Performed By: #### 2 689609 #### [facility] [address] [place] [address] Glucose [Mass/Vol] 93 mg/dL Normal 55-199 [facility] Comment on above: Performed By: #### 2 809877 #### [facility] [address] [place] [address] Potassium [Moles/Vol] 4.1 mmol/L Normal 3.5-5.3 [facility] Comment on above: Performed By: #### 2 745386 #### [facility] [address] [place] [address] Sodium [Moles/Vol] 142 mmol/L Normal 135-145 [facility] Comment on above: Performed By: #### 2 257096 #### [facility] [address] [place] [address] Urea nitrogen [Mass/Vol] 11 mg/dL Normal 5-21 [facility] Comment on above: Performed By: #### 2 636979 #### [facility] [address] [place] [address] Urea nitrogen/Creatinine [Mass ratio] 12 No Units Normal 10-20 [facility] Comment on above: Performed By: #### 2 525459 #### [facility] [address] [place] [address] CBC w/ Auto Diffon 4 Basophils/100 WBC (Bld) 0.6 % Normal 0.0-2.0 [facility] Comment on above: Performed By: #### 2 493425 #### [facility] [address] [place] [address] Basophils/Leukocytes Auto (Bld) [Pure # fraction] 0.0 E9/L Normal 0.0-0.2 [facility] Comment on above: Performed By: #### 2 730704 #### [facility] [address] [place] [address] Eosinophils (Bld) [#/Vol] 0.1 E9/L Normal 0.0-0.5 [facility] Comment on above: Performed By: #### 2 312414 #### [facility] [address] [place] [address] Eosinophils/100 WBC (Bld) 1.2 % Normal 0.0-8.0 [facility] Comment on above: Performed By: #### 2 586218 #### [facility] [address] [place] [address] Erythrocyte distribution width (RBC) [Ratio] 17.5 % High 10.9-14.2 [facility] Comment on above: Performed By: #### 2 348855 #### [facility] [address] [place] [address] Hematocrit (Bld) [Volume fraction] 37.9 % Normal 34.0-46.0 [facility] Comment on above: Performed By: #### 2 690870 #### [facility] [address] [place] [address] Hemoglobin (Bld) [Mass/Vol] 12.6 g/dL Normal 12.0-16.0 [facility] Comment on above: Performed By: #### 2 988516 #### [facility] [address] [place] [address] Lymphocytes (Bld) [#/Vol] 0.8 E9/L Low 1.0-4.0 [facility] Comment on above: Performed By: #### 2 044215 #### [facility] [address] [place] [address] Lymphocytes/100 WBC (Bld) 11.1 % Low 14.0-50.0 [facility] Comment on above: Performed By: #### 2 373192 #### [facility] [address] [place] [address] MCH (RBC) [Entitic mass] 27.8 pg Normal 27.0-34.0 [facility] Comment on above: Performed By: #### 2 560570 #### [facility] [address] [place] [address] MCHC (RBC) [Mass/Vol] 33.2 g/dL Normal 31.4-36.0 [facility] Comment on above: Performed By: #### 2 126277 #### [facility] [address] [place] [address] MCV (RBC) [Entitic vol] 83.9 fL Normal 80.0-100.0 [facility] Comment on above: Performed By: #### 2 579246 #### [facility] [address] [place] [address] Monocytes (Bld) [#/Vol] 0.8 E9/L Normal 0.2-1.0 [facility] Comment on above: Performed By: #### 2 832068 #### [facility] [address] [place] [address] Neutrophils (Bld) [#/Vol] 5.4 E9/L Normal 2.0-7.5 [facility] Comment on above: Performed By: #### 2 435925 #### [facility] [address] [place] [address] Neutrophils/100 WBC (Bld) 76.4 % High 36.0-75.0 [facility] Comment on above: Performed By: #### 2 283567 #### [facility] [address] [place] [address] Platelet 195.0 E9/L Normal 150.0-500. 0 [facility] Comment on above: Performed By: #### 2 080840 #### [facility] [address] [place] [address] Platelet mean volume (Bld) [Entitic vol] 10.4 fL Normal 6.4-10.8 [facility] Comment on above: Performed By: #### 2 472785 #### [facility] [address] [place] [address] RBC (Bld) [#/Vol] 4.5 E12/L Normal 4.3-5.9 [facility] Comment on above: Performed By: #### 2 438372 #### [facility] [address] [place] [address] WBC corrected for nucl RBC Auto (Bld) [#/Vol] 7.1 E9/L Normal 4.0-11.0 [facility] Comment on above: Performed By: #### 2 101538 #### [facility] [address] [place] [address] [place] [address] eGFRon 02-05-2024 eGFR 75 mL/min/1.73 m2 Normal >=59 [facility] Comment on above: Order Comment: Order added by Discern Expert. Performed By: #### 1 1225312 ####[facility] [address] [place] [address] TBH UA (CLEAN/CATCH) MICROSC OPIC IF INDICATEon [...] [facility] CNPNon 12-19-2023 RUBINAN Telephone ([facility]) ANUPAMA VASQUEZ ([id number]) 1970 F Date Time Provider Department 12/19/23 NURSE [facility] During your visit today, [...] Status:Closed by TEAGAN ROSESHE on 12/19/23 Normal [facility] MR SHOULDER LEFT WO IV CONTR Maikel [...] Mild glenohumeral osteoarthritis. ELECTRONICALLY SIGNED BY: Pavel Mays DO Normal Not Available Comment on above: Order Comment: BB in left knee Previous MRI 7-8 years ago CNPNon 08-21-2023 CNPN Telephone ([facility]) ANUPAMA VASQUEZ ([id number]) 1970 F Date Time Provider Department 08/21/23 JESSICA CLARKE [facility] During your visit today, we recorded the following information about you: Renuka Ellison 08/21/2023 4:19 PM Signed [place] Call Name of caller : Anupama Vasquez Relationship to patient: Self Return call phone number : [phone] Reason for call : Other : Brief [...] of spine [M48.02] Order(s):CONSULT TO SPINE SURGERY [[id number]] Order #: [id number]: 1 FUTURE Prescriptions as of 08/22/2023 - [...] Encounter Status:Closed by ELIZABETH VICTORIA on 08/22/23 [facility] 07-15-2023 [facility] Telephone ([facility]) ANUPAMA VASQUEZ ([id number]) 1970 F Date Time Provider Department 07/15/23 [...] c-spine MRI was completed locally outside [facility] in April. Orders already placed Elizabeth Victoria RN 07/16/2023 2:21 PM Signed Called patient, no answer. Message left to return call to office when able. MOE Spencer Megan A, RN 07/17/2023 9:04 AM Signed Called patient, no answer. Message left indicating [employer] message would be sent with reason for [...] sclerosis (HCC) [G35] Order(s):MRI BRAIN WO/W IVCON [[id number]] Order #: [id number] FUTURE iv contrast (will be provided with [...] Encounter Status:Closed by ELIZABETH VICTORIA on 07/17/23 [facility] CNOVon 07-10-2023 CNOV Office Visit ([facility] ) ANUPAMA VASQUEZ ([id number]) 1970 F Date Time Provider Department 07/10/23 6:00 PM [facility] During your visit today, we recorded the following information about you: Pulse Weight Height 89/minute 134.3 kg 1.676 m Jacob Toledos KeilaDO 07/12/2023 11:26 AM Signed [facility] Initial Evaluation July 10, 2023 This appointment was requested by Jessica Clarke PA-C, for my medical opinion regarding the evaluation and management of the patient's Anupama Vasquez problems, and my final recommendations will be communicated to the requesting health care provider by way of the shared medical record for internal providers or letter via the [employer] for external providers. 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 Normal [facility] CBC W Auto Differential pane l (Bld)on 05-22-2023 Basophils (Bld) [#/Vol] 0.05 10*3/uL Normal <0.11 [facility] Comment on above: Order Comment: Speci men Type: BLOOD SPECIMENOrdering Facility: [facility] Address: [address] [place] [address] Performed By: #### 5 7021-8 ####[facility] LABCLIA [id number] [place] [address] [place] Basophils/100 WBC (Bld) 0.5 % Normal [facility] Comment on above: Order Comment: Speci men Type: BLOOD SPECIMENOrdering Facility: [facility] Address: [address] [place] [address] Performed By: #### 5 7021-8 ####[facility] LABCLIA [id number] [place] [address] [place] Differential cell count method Nom (Bld) Auto Normal [facility] Comment on above: Order Comment: Speci men Type: BLOOD SPECIMENOrdering Facility: [facility] Address: [address] [place] [address] Performed By: #### 5 7021-8 ####[facility] LABCLIA [id number] [place] [address] [place] Eosinophils (Bld) [#/Vol] 0.19 10*3/uL Normal <0.46 [facility] Comment on above: Order Comment: Speci men Type: BLOOD SPECIMENOrdering Facility: [facility] Address: [address] [place] [address] Performed By: #### 5 7021-8 ####[facility] LABCLIA [id number] [place] [address] [place] Eosinophils/100 WBC (Bld) 2.1 % Normal [facility] Comment on above: Order Comment: Speci men Type: BLOOD SPECIMENOrdering Facility: [facility] Address: [address] [place] [address] Performed By: #### 5 7021-8 ####[facility] LABCLIA [id number] [place] [address] [place] Erythrocyte distribution width (RBC) [Ratio] 15.5 % High 11.5-15.0 [facility] Comment on above: Order Comment: Speci men Type: BLOOD SPECIMENOrdering Facility: [facility] Address: [address] [place] [address] Performed By: #### 5 7021-8 ####[facility] LABIA [id number] [place] [address] [place] Hematocrit (Bld) [Volume fraction] 42.1 % Normal 36.0-46.0 [facility] Comment on above: Order Comment: Speci men Type: BLOOD SPECIMENOrdering Facility: [facility] Address: [address] [place] [address] Performed By: #### 5 7021-8 ####[facility] LABIA [id number] [place] [address] [place] Hemoglobin (Bld) [Mass/Vol] 12.9 g/dL Normal 11.5-15.5 [facility] Comment on above: Order Comment: Speci men Type: BLOOD SPECIMENOrdering Facility: [facility] Address: [address] [place] [address] Performed By: #### 5 7021-8 ####[facility] LABIA [id number] [place] [address] [place] Immature granulocytes (Bld) [#/Vol] 0.04 10*3/uL Normal <0.10 [facility] Comment on above: Order Comment: Speci men Type: BLOOD SPECIMENOrdering Facility: [facility] Address: [address] [place] [address] Performed By: #### 5 7021-8 ####[facility] LABIA [id number] [place] [address] [place] Immature granulocytes/100 WBC (Bld) 0.4 % Normal [facility] Comment on above: Order Comment: Speci men Type: BLOOD SPECIMENOrdering Facility: [facility] Address: [address] [place] [address] Performed By: #### 5 7021-8 ####[facility] LABCLIA [id number] [place] [address] [place] Lymphocytes (Bld) [#/Vol] 0.82 10*3/uL Low 1.00-4.00 [facility] Comment on above: Order Comment: Speci men Type: BLOOD SPECIMENOrdering Facility: [facility] Address: [address] [place] [address] Performed By: #### 5 7021-8 ####[facility] LABCLIA [id number] [place] [address] [place] Lymphocytes/100 WBC (Bld) 9.0 % Normal [facility] Comment on above: Order Comment: Speci men Type: BLOOD SPECIMENOrdering Facility: [facility] Address: [address] [place] [address] Performed By: #### 5 7021-8 ####[facility] LABCLIA [id number] [place] [address] [place] MCH (RBC) [Entitic mass] 26.9 pg Normal 26.0-34.0 [facility] Comment on above: Order Comment: Speci men Type: BLOOD SPECIMENOrdering Facility: [facility] Address: [address] [place] [address] Performed By: #### 5 7021-8 ####[facility] LABIA [id number] [place] [address] [place] MCHC (RBC) [Mass/Vol] 30.6 g/dL Normal 30.5-36.[address] [facility] Comment on above: Order Comment: Speci men Type: BLOOD SPECIMENOrdering Facility: [facility] Address: [address] [place] [address] Performed By: #### 5 7021-8 ####[facility] LABCLIA [id number] [place] [address] [place] MCV (RBC) [Entitic vol] 87.9 fL Normal 80.0-100.0 [facility] Comment on above: Order Comment: Speci men Type: BLOOD SPECIMENOrdering Facility: [facility] Address: [address] [place] [address] Performed By: #### 5 7021-8 ####[facility] LABCLIA [id number] [place] [address] [place] Monocytes (Bld) [#/Vol] 0.93 10*3/uL High <0.87 [facility] Comment on above: Order Comment: Speci men Type: BLOOD SPECIMENOrdering Facility: [facility] Address: [address] [place] [address] Performed By: #### 5 7021-8 ####[facility] LABCLIA [id number] [place] [address] [place] Monocytes/100 WBC (Bld) 10.2 % Normal [facility] Comment on above: Order Comment: Speci men Type: BLOOD SPECIMENOrdering Facility: [facility] Address: [address] [place] [address] Performed By: #### 5 7021-8 ####[facility] LABCLIA [id number] [place] [address] [place] Neutrophils (Bld) [#/Vol] 7.07 10*3/uL Normal 1.45-7.50 [facility] Comment on above: Order Comment: Speci men Type: BLOOD SPECIMENOrdering Facility: [facility] Address: [address] [place] [address] Performed By: #### 5 7021-8 ####[facility] LABCLIA [id number] [place] [address] [place] Neutrophils/100 WBC (Bld) 77.8 % Normal [facility] Comment on above: Order Comment: Speci men Type: BLOOD SPECIMENOrdering Facility: [facility] Address: [address] [place] [address] Performed By: #### 5 7021-8 ####[facility] LABIA [id number] [place] [address] [place] Nucleated RBC (Bld) [#/Vol] 10*3/uL Normal <0.01 [facility] Comment on above: Order Comment: Speci men Type: BLOOD SPECIMENOrdering Facility: [facility] Address: [address] [place] [address] Performed By: #### 5 7021-8 ####[facility] LABIA [id number] [place] [address] [place] Nucleated RBC/100 WBC (Bld) [Ratio] 0.0 /100 WBC Normal [facility] Comment on above: Order Comment: Speci men Type: BLOOD SPECIMENOrdering Facility: [facility] Address: [address] [place] [address] Performed By: #### 5 7021-8 ####[facility] LABIA [id number] [place] [address] [place] Platelet mean volume (Bld) [Entitic vol] 12.4 fL Normal 9.0-12.7 [facility] Comment on above: Order Comment: Speci men Type: BLOOD SPECIMENOrdering Facility: [facility] Address: [address] [place] [address] Performed By: #### 5 7021-8 ####[facility] LABIA [id number] [place] [address] [place] Platelets (Bld) [#/Vol] 208 10*3/uL Normal 150-400 [facility] Comment on above: Order Comment: Speci men Type: BLOOD SPECIMENOrdering Facility: [facility] Address: [address] [place] [address] Performed By: #### 5 7021-8 ####[facility] LABCLIA [id number] [place] [address] [place] RBC (Bld) [#/Vol] 4.79 10*6/uL Normal 3.90-5.20 [facility] Comment on above: Order Comment: Speci men Type: BLOOD SPECIMENOrdering Facility: [facility] Address: [address] [place] [address] Performed By: #### 5 7021-8 ####[facility] LABCLIA [id number] [place] [address] [place] WBC (Bld) [#/Vol] 9.10 10*3/uL Normal 3.70-11.00 [facility] Comment on above: Order Comment: Speci men Type: BLOOD SPECIMENOrdering Facility: [facility] Address: [address] [place] [address] Performed By: #### 5 7021-8 ####[facility] LABIA [id number] [place] [address] [place] CD19 ABSOLUTE COUNTon 2023 CD3-CD19+ cells (Bld) [#/Vol] 219 cells/uL Normal 75-660 [facility] Comment on above: Order Comment: Speci men Type: BLOOD SPECIMENOrdering Facility: [facility] Address: [address] [place] [address] Performed By: #### A BS19 ####[facility] LABIA [id number] [place] [address] [place] CD3-CD19+ cells/100 cells (Bld) 23 % High 5-22 [facility] Comment on above: Order Comment: Speci men Type: BLOOD SPECIMENOrdering Facility: [facility] Address: [address] [place] [address] Performed By: #### A BS19 ####[facility] LABIA [id number] [id number] [address] [place] Lymphocytes/100 WBC FC (Bld) Normal [facility] Comment on above: Order Comment: Speci men Type: BLOOD SPECIMENOrdering Facility: [facility] Address: [address] [place] [address] Performed By: #### A BS19 ####[facility] LABCLIA [id number] [id number] OF [facility] CNOVon 05-22-2023 CNOV Office Visit (NTLORA ) ANUPAMA VASQUZE ([id number]) 1970 F Date Time Provider Department 05/22/23 [...] her tubes tied. Referring Provider: SARTHAK ESCOBAR [[id number]] Allergies As of Date: 05/22/2023 (No Known Allergies) Date Reviewed: 10/11/2022 Reviewed by: Maryam Cabrera, MOE - Fully Assessed Primary Visit Diagnosis:Multiple sclerosis (HCC) [G35] Other Visit Diagnosis:Multiple sclerosis, relapsing-remitting (HCC) [G35] Order(s):TREATMENT PARAMETER-NOT NEEDED [[id number]] Order #: [id number]: 1 BCN CD20 NURSING COMMUNICATION [[id number]] Order #: [id number]: 1 BCN NURSING COMMUNICATION [[id number]] Order #: [id number]: 1 CD19 ABSOLUTE COUNT [SQABS19] Order #: [id number] FUTURE [] methylPREDNISolone sod succinate(PF) 100 mg injection (SOLU-Medrol)Disp: Rfl: [] acetaminophen 1,000 mg tab(s) (TYLENOL)Disp: Rfl: [] diphenhydrAMINE 50 mg (BENADRYL)Disp: Rfl: [] ocrelizumab 600 mg in NaCl 0.9% 500 mL (OCREVUS)Disp: Rfl: CBC + DIFF [SQCBCDIF] Order #: [id number]. #:[id number] COMP METABOLIC PANEL [SQCMP] Order #: [id number]. #:[id number] IGG [SQIGG] Order #: [id number]. #:[id number] IGM [SQIGM] Order #: [id number]. #:[id number] CD19 ABSOLUTE COUNT [SQABS19] Order #: [id number]. #:[id number] Prescriptions as of 05/23/2023 - lisinopril (ZESTRIL) [...] Status:Closed by SHE BRAND on 05/22/23 Normal [facility] Comprehensive metabolic 2000 panelon 05-22-2023 Albumin [Mass/Vol] 4.0 g/dL Normal 3.9-4.9 [facility] Comment on above: Order Comment: Speci men Type: BLOOD SPECIMENOrdering Facility: [facility] Address: [address] [place] [address] Performed By: #### 2 4323-8 ####[facility] LABCLIA [id number] [place] [address] [place] ALP [Catalytic activity/Vol] 90 U/L Normal 34-123 [facility] Comment on above: Order Comment: Speci men Type: BLOOD SPECIMENOrdering Facility: [facility] Address: [address] [place] [address] Performed By: #### 2 4323-8 ####[facility] LABCLIA [id number] [place] [address] [place] ALT [Catalytic activity/Vol] 23 U/L Normal 7-38 [facility] Comment on above: Order Comment: Speci men Type: BLOOD SPECIMENOrdering Facility: [facility] Address: [address] [place] [address] Performed By: #### 2 4323-8 ####[facility] LABCLIA [id number] [place] [address] [place] Anion gap [Moles/Vol] 13 mmol/L Normal 9-[address] [facility] Comment on above: Order Comment: Speci men Type: BLOOD SPECIMENOrdering Facility: [facility] Address: [address] [place] [address] Performed By: #### 2 4323-8 ####[facility] LABCLIA [id number] [place] [address] [place] AST [Catalytic activity/Vol] 25 U/L Normal 13-35 [facility] Comment on above: Order Comment: Speci men Type: BLOOD SPECIMENOrdering Facility: [facility] Address: [address] [place] [address] Performed By: #### 2 4323-8 ####[facility] LABCLIA [id number] [address] [address] [place] Bilirubin [Mass/Vol] 0.3 mg/dL Normal 0.2-1.3 [facility] Comment on above: Order Comment: Speci men Type: BLOOD SPECIMENOrdering Facility: [facility] Address: [address] [place] [address] Performed By: #### 2 4323-8 ####[facility] LABCLIA [id number] [place] [address] [place] Calcium [Mass/Vol] 9.4 mg/dL Normal 8.5-10.2 [facility] Comment on above: Order Comment: Speci men Type: BLOOD SPECIMENOrdering Facility: [facility] Address: [address] [place] [address] Performed By: #### 2 4323-8 ####[facility] LABCLIA [id number] [place] [address] [place] Chloride [Moles/Vol] 103 mmol/L Normal 97-105 [facility] Comment on above: Order Comment: Speci men Type: BLOOD SPECIMENOrdering Facility: [facility] Address: [address] [place] [address] Performed By: #### 2 4323-8 ####[facility] LABCLIA [id number] [place] [address] [place] CO2 [Moles/Vol] 27 mmol/L Normal 22-30 [facility] Comment on above: Order Comment: Speci men Type: BLOOD SPECIMENOrdering Facility: [facility] Address: [address] [place] [address] Performed By: #### 2 4323-8 ####[facility] LABCLIA [id number] [place] [address] [place] Creatinine [Mass/Vol] 1.04 mg/dL High 0.58-0.[address] [facility] Comment on above: Order Comment: Speci men Type: BLOOD SPECIMENOrdering Facility: [facility] Address: [address] [place] [address] Performed By: #### 2 4323-8 ####[facility] LABIA [id number] [place] [address] [place] Creatinine and Glomerular filtration rate.predicted panel (S/P/Bld) 64 mL/min/1.73m??? Normal >=60 [facility] Comment on above: Order Comment: Ali men Type: BLOOD SPECIMENOrdering Facility: [facility] Address: [address] [place] [address] Result Comment: Karyn mated Glomerular Filtration Rate [...] GFR. Performed By: #### 2 4323-8 ####[facility] LABIA [id number] [place] [address] [place] Glucose [Mass/Vol] 88 mg/dL Normal 74-99 [facility] Comment on above: Order Comment: Speci men Type: BLOOD SPECIMENOrdering Facility: [facility] Address: [address] [place] [address] Result Comment: The [place] Diabetes Association (ADA) provides guidance for cutoff [...] Standards of Medical Care in Diabetes 2016, [place] [employer]. Diabetes Care. 2016.39(Suppl 1). Performed By: #### 2 4323-8 ####[facility] LABCLIA [id number] [place] [address] [place] Potassium [Moles/Vol] 3.7 mmol/L Normal 3.7-5.[address] [facility] Comment on above: Order Comment: Speci men Type: BLOOD SPECIMENOrdering Facility: [facility] Address: [address] [place] [address] Performed By: #### 2 4323-8 ####[facility] LABCLIA [id number] [place] [address] [place] Protein [Mass/Vol] 7.1 g/dL Normal 6.3-8.0 [facility] Comment on above: Order Comment: Speci men Type: BLOOD SPECIMENOrdering Facility: [facility] Address: [address] [place] [address] Performed By: #### 2 4323-8 ####[facility] LABCLIA [id number] [place] [address] [place] Sodium [Moles/Vol] 143 mmol/L Normal 136-144 [facility] Comment on above: Order Comment: Speci men Type: BLOOD SPECIMENOrdering Facility: [facility] Address: [address] [place] [address] Performed By: #### 2 4323-8 ####[facility] LABCLIA [id number] [place] [address] [place] Urea nitrogen [Mass/Vol] 17 mg/dL Normal 7-21 [facility] Comment on above: Order Comment: Speci men Type: BLOOD SPECIMENOrdering Facility: [facility] Address: [address] [place] [address] Performed By: #### 2 4323-8 ####[facility] LABCLIA [id number] [place] [id number] [place] IgG SerPl-mCncon 05-22-2023 IgG [Mass/Vol] 954 mg/dL Normal 700-1600 [facility] Comment on above: Order Comment: Speci men Type: BLOOD SPECIMENOrdering Facility: [facility] Address: [address] [place] [address] Performed By: #### 2 465-3, 2472-9 ####[facility] LABIA [id number] [place] [address] [place] IgM SerPl-mCncon 05-22-2023 IgM [Mass/Vol] 74 mg/dL Normal 40-230 [facility] Comment on above: Order Comment: Speci men Type: BLOOD SPECIMENOrdering Facility: [facility] Address: [address] [place] [address] Performed By: #### 2 465-3, 2472-9 ####[facility] LABCLIA [id number] [place] [address] [place] So 05-14-2023 JASMIN Telephone (DARLINQ) ANUPAMA VASQUEZ ([id number]) 1970 F Date Time Provider Department 05/14/23 [...] Status:Closed by MICHELLE LUJAN on 05/14/23 Normal [facility] PREG HCG QUALon 09-21-2022 , QUAL Negative Normal NEGATIVE [facility] Comment on above: Performed By: #### P REG #### [facility] [address] [place] [address] Dr. Angel Li IMMUNOGLOBULIN IGG [facility]ITAT [facility]2022 Immunoglobulin G, Qn, Serum 1032 mg/dL Normal 586-1602 [facility] Comment on above: Performed By: #### I MIGGQN #### [facility] [address] [place] [address] [address] Angel Li IMMUNOGLOBULIN IGM QUANTITAT IVEon 06-06-2022 Immunoglobulin M, Qn, Serum 46 mg/dL Normal 26-217 [facility] Comment on above: Performed By: #### I MIGMQN #### [facility] [address] [place] [address] Dr. Angel Li CBC AUTO DIFFon 06-05-2022 BASO # 0.0 103/ul Normal 0.0-0.1 [facility] Comment on above: Performed By: #### C BC #### [facility] [address] [place] [address] Dr. Angel Li Basophils/100 WBC (Bld) 0.5 % Normal 0.2-2.0 [facility] Comment on above: Performed By: #### C BC #### [facility] [address] [place] [address] Dr. Angel Li EO # 0.2 103/ul Normal 0.0-0.7 [facility] Comment on above: Performed By: #### C BC #### [facility] [address] [place] [address] Dr. Angel Li Eosinophils/100 WBC (Bld) 2.6 % Normal 0.9-7.0 [facility] Comment on above: Performed By: #### C BC #### [facility] [address] [place] [address] Dr. Angel Li Erythrocyte distribution width (RBC) [Ratio] 14.5 % Normal 11.0-15.0 [facility] Comment on above: Performed By: #### C BC #### [facility] [address] [place] [address] Dr. Angel Li Hematocrit (Bld) [Volume fraction] 36.5 % Normal 36.0-48.0 [facility] Comment on above: Performed By: #### C BC #### [facility] [address] [place] [address] Dr. Angel Li Hemoglobin (Bld) [Mass/Vol] 11.8 g/dL Critically low 12.0-16.0 [facility] Comment on above: Performed By: #### C BC #### [facility] [address] [place] [address] Dr. Angel Li IG # 0.03 10e3/ul Normal 0.00-0.03 [facility] Comment on above: Performed By: #### C BC #### [facility] [address] [place] [address] Dr. Angel Li IG % 0.4 % Normal 0.0-0.5 [facility] Comment on above: Performed By: #### C BC #### [facility] [address] [place] [address] Dr. Angel Li LYMPH # 0.8 103/ul Critically low 1.2-3.8 [facility] Comment on above: Performed By: #### C BC #### [facility] [address] [place] [address] Dr. Angel Li Lymphocytes/100 WBC (Bld) 9.8 % Critically low 20.5-60.0 [facility] Comment on above: Performed By: #### C BC #### [facility] [address] [place] [address] Dr. Angel Li MANUAL DIFF REQ NO Normal [facility] Comment on above: Performed By: #### C BC #### [facility] [address] [place] [address] Dr. Angel Li MCH (RBC) [Entitic mass] 29.0 pg Normal 26.7-34.0 [facility] Comment on above: Performed By: #### C BC #### [facility] [address] [place] [address] Dr. Angel Li MCHC (RBC) [Mass/Vol] 32.3 g/dL Normal 29.9-35.2 [facility] Comment on above: Performed By: #### C BC #### [facility] [address] [place] [address] Dr. Angel Li MCV (RBC) [Entitic vol] 89.7 fL Normal 81.0-99.0 [facility] Comment on above: Performed By: #### C BC #### [facility] [address] [place] [address] Dr. Angel Li MONO # 1.0 103/ul Critically high 0.3-0.8 [facility] Comment on above: Performed By: #### C BC #### [facility] [address] [place] [address] Dr. Angel Li Monocytes/100 WBC (Bld) 13.0 % Critically high 1.7-12. 0 [facility] Comment on above: Performed By: #### C BC #### [facility] [address] [place] [address] Dr. Angel Li NEUT # 5.9 103/ul Normal 1.4-6.5 [facility] Comment on above: Performed By: #### C BC #### [facility] [address] [place] [address] Dr. Angel Li Neutrophils/100 WBC (Bld) 73.7 % Normal 43.0-75.0 [facility] Comment on above: Performed By: #### C BC #### [facility] [address] [place] [address] Dr. Angel Li Platelet mean volume (Bld) [Entitic vol] 11.6 fL Normal 9.5-13.5 [facility] Comment on above: Performed By: #### C BC #### [facility] [address] [place] [address] Dr. Angel Li PLT 200 103/ul Normal 150-450 [facility] Comment on above: Performed By: #### C BC #### [facility] [address] [place] [address] Dr. Angel Li RBC 4.07 106/ul Critically low 4.20-5.40 [facility] Comment on above: Performed By: #### C BC #### [facility] [address] [place] [address] Dr. Angel Li WBC 8.0 103/ul Normal 4.0-11.0 [facility] Comment on above: Performed By: #### C BC #### [facility] [address] [place] [address] Dr. Angel Li PROF 14(COMP METB)on 023 Albumin [Mass/Vol] 3.4 g/dL Normal 3.4-5.0 [facility] Comment on above: Performed By: #### C MP #### [facility] [address] [place] [address] Dr. Angel Li Albumin/Globulin [Mass ratio] 0.9 {ratio} Normal [facility] Comment on above: Performed By: #### C MP #### [facility] [address] [place] [address] Dr. Angel Li ALP [Catalytic activity/Vol] 122 U/L Critically high 46-116 [facility] Comment on above: Performed By: #### C MP #### [facility] [address] [place] [address] Dr. Angel Li ALT [Catalytic activity/Vol] 35 U/L Normal 14-59 [facility] Comment on above: Performed By: #### C MP #### [facility] [address] [place] [address] Dr. Angel Li Anion gap [Moles/Vol] 9.7 mmol/L Normal [facility] Comment on above: Performed By: #### C MP #### [facility] [address] [place] [address] Dr. Angel Li AST [Catalytic activity/Vol] 32 U/L Normal 15-37 [facility] Comment on above: Performed By: #### C MP #### [facility] [address] [place] [address] Dr. Angel Li Bilirubin [Mass/Vol] 0.4 mg/dL Normal 0.2-1.0 [facility] Comment on above: Performed By: #### C MP #### [facility] [address] [place] [address] Dr. Angel Li Calcium [Mass/Vol] 9.0 mg/dL Normal 8.5-10.1 [facility] Comment on above: Performed By: #### C MP #### [facility] [address] [place] [address] Dr. Angel Li Chloride [Moles/Vol] 103 mmol/L Normal 98-107 [facility] Comment on above: Performed By: #### C MP #### [facility] [address] [place] [address] Dr. Angel Li CO2 [Moles/Vol] 32.3 mmol/L Critically high 21.0-32.0 [facility] Comment on above: Performed By: #### C MP #### [facility] [address] [place] [address] [address] Angel Li Creatinine [Mass/Vol] 0.97 mg/dL Normal 0.55-1.02 [facility] Comment on above: Performed By: #### C MP #### [facility] [address] [place] [address] [address] Angel Li EGFR-AF BOTSWANAN >60 Normal >=60 [facility] Comment on above: Performed By: #### C MP #### [facility] [address] [place] [address] [address] Angel Li EGFR-NON AF BOTSWANAN =60 Normal >=60 [facility] Comment on above: Performed By: #### C MP #### [facility] [address] [place] [address] Dr. Angel Li Globulin (S) [Mass/Vol] 3.7 g/dL Normal T [facility] Comment on above: Performed By: #### C MP #### [facility] [address] [place] [address] [address] Angel Li Glucose [Mass/Vol] 87 mg/dL Normal 74-106 [facility] Comment on above: Performed By: #### C MP #### [facility] [address] [address] [address] Angel Li Potassium [Moles/Vol] 4.0 mmol/L Normal 3.5-5.[address] [facility] Comment on above: Performed By: #### C MP #### [facility] [address] [address] [address] Angel Li Protein [Mass/Vol] 7.1 g/dL Normal 6.4-8.2 [facility] Comment on above: Performed By: #### C MP #### [facility] [address] [address] [address] Angel Li Sodium [Moles/Vol] 141 mmol/L Normal 136-145 [facility] Comment on above: Performed By: #### C MP #### [facility] [address] [address] [address] Angel Li Urea nitrogen [Mass/Vol] 11.0 mg/dL Normal 7.0-18.0 [facility] Comment on above: Performed By: #### C MP #### [facility] [address] [address] [address] Angel Li Urea nitrogen/Creatinine [Mass ratio] 11.3 mg/mg Normal [facility] Comment on above: Performed By: #### C MP #### [facility] [address] [place] [address] Dr. Angel Li PAP ACOG PANEL 2: 30 to 65on 03-13-2022 . . Normal [facility] Comment on above: Result Comment: Perf ormed at: WB Performed By: #### [id number] #### [facility] [address] [place] [address] Dr. Angel Li Age Gdln ACOG Testing - Normal [facility] Comment on above: Performed By: #### [id number] #### [facility] [address] [place] [address] Dr. Angel Li DIAGNOSIS: Comment Normal [facility] Comment on above: Result Comment: NEGA TIVE FOR INTRAEPITHELIAL LESION OR MALIGNANCY. Performed at: WB Performed By: #### [id number] #### [facility] [address] [place] [address] Dr. Angel Li HPV Aptima Negative Normal Negative [facility] Comment on above: Result Comment: This nucleic acid amplification test detects fourteen high-risk HPV types (16,18,31,33,35,39,45,51,52,56,58,59,66,68) without differentiation. Performed at: =G Performed By: #### [id number] #### [facility] [address] [place] [address] Dr. Angel Li Methodology: Comment Normal [facility] Comment on above: Result Comment: This liquid based ThinPrep(R) pap test was screened with the use of an image guided system. Performed at: WB Performed By: #### [id number] #### [facility] [address] [place] [address] Dr. Angel Li Note: Comment Normal [facility] Comment on above: Result Comment: The Pap smear is a screening test designed to aid in the detection of premalignant and malignant conditions of the uterine cervix. It is not a diagnostic procedure and should not be used as the sole means of detecting cervical cancer. Both false-positive and false-negative reports do occur. . Performed at: WB Performed By: #### [id number] #### [facility] [address] [place] [address] Dr. Angel Li Performed by: Comment Normal [facility] Comment on above: Result Comment: Shyanne Back, Fountain Roller Assembler (ASCP) Performed at: WB Performed By: #### [id number] #### [facility] [address] [place] [address] Dr. Angel Li Specimen adequacy: Comment Normal [facility] Comment on above: Result Comment: Sati sfactory for evaluation. Endocervical and/or squamous metaplastic cells (endocervical component) are present. Performed at: WB Performed By: #### [id number] #### [facility] [address] [place] [address] Dr. Angel Li VAGINITIS/VAGINOSIS DNA PROB Marcelino 03-08-2022 Gracia species Negative Normal Negative [facility] Comment on above: Performed By: #### V AGINT #### [facility] [address] [place] [address] Dr. Angel Li Gardnerella vaginalis Positive Abnormal Negative [facility] Comment on above: Performed By: #### V AGINT #### [facility] [address] [place] [address] Dr. Angel Li Trichomonas vaginalis Negative Normal Negative [facility] Comment on above: Performed By: #### V AGINT #### [facility] [address] [place] [address] Dr. Angel Li BRAIN & CERVICAL SPINE MRI D [facility] 11-14-2021 Brain Enhancing Lesions None [facility] Brain Interval Improvement None [facility] Brain New T2 Lesions [facility] Brain Other Significant MRI Findings None. [facility] Brain Parenchymal Volume Loss None [facility] Brain T2 [place] of Disease Moderate [facility] MRI BRAIN WO/W IVCONon 11-14 [facility] CBC W Auto Differential pane l (Bld)on 09-18-2021 Abs Immature Gran <0.03 <0.10 k/uL [facility] Basophils (Bld) [#/Vol] 0.03 10*3/uL <0.11 k/uL [facility] Basophils/100 WBC (Bld) 0.5 % C [facility] Differential cell count method Nom (Bld) Auto [facility] Eosinophils (Bld) [#/Vol] 0.15 10*3/uL <0.46 k/uL [facility] Eosinophils/100 WBC (Bld) 2.4 % [facility] Erythrocyte distribution width (RBC) [Ratio] 14.2 % 11.5 - 15.0 % [facility] Hematocrit (Bld) [Volume fraction] 41.5 % 36.0 - 46.0 % [facility] Hemoglobin (Bld) [Mass/Vol] 12.9 g/dL 11.5 - 15.5 g/dL [facility] Immature Gran % 0.3 % [facility] Lymphocytes (Bld) [#/Vol] 0.60 10*3/uL Low 1.00 - 4.00 k/uL [facility] Lymphocytes/100 WBC (Bld) 9.7 % [facility] MCH (RBC) [Entitic mass] 29.3 pg 26. 0 - 34.0 pg [facility] MCHC (RBC) [Mass/Vol] 31.1 g/dL 30.5 - 36.0 g/dL [facility] MCV (RBC) [Entitic vol] 94.3 fL 80.0 - 100.0 fL [facility] Monocytes (Bld) [#/Vol] 0.74 10*3/uL <0.87 k/uL [facility] Monocytes/100 WBC (Bld) 12.0 % [facility] Neutrophils (Bld) [#/Vol] 4.62 10*3/uL 1.45 - 7.50 k/uL [facility] Neutrophils/100 WBC (Bld) 75.1 % [facility] Nucleated RBC (Bld) [#/Vol] 10*3/uL <0.01 k/uL [facility] Nucleated RBC/100 WBC (Bld) [Ratio] 0.0 /100 WBC [facility] Platelet mean volume (Bld) [Entitic vol] 12.5 fL 9.0 - 12.7 fL [facility] Platelets (Bld) [#/Vol] 181 10*3/uL 150 - 400 k/uL [facility] RBC (Bld) [#/Vol] 4.40 10*6/uL 3.90 - 5.20 m/uL [facility] WBC (Bld) [#/Vol] 6.16 10*3/uL 3.70 - 11.00 k/uL [facility] Comprehensive metabolic 2000 panelon 09-18-2021 Albumin [Mass/Vol] 3.8 g/dL Low 3.9 - 4.9 g/dL [facility] ALP [Catalytic activity/Vol] 114 U/L 34 - 123 U/L [facility] ALT [Catalytic activity/Vol] 16 U/L 7 - 38 U/L [facility] Anion gap [Moles/Vol] 11 mmol/L 9 - 18 mmol/L [facility] AST [Catalytic activity/Vol] 21 U/L 13 - 35 U/L [facility] Bilirubin [Mass/Vol] 0.4 mg/dL 0.2 - 1 .3 mg/dL [facility] Calcium [Mass/Vol] 9.0 mg/dL 8.5 - 10. 2 mg/dL [facility] Chloride [Moles/Vol] 102 mmol/L 97 - 10 5 mmol/L [facility] CO2 [Moles/Vol] 25 mmol/L 22 - 30 mmol/L [facility] Creatinine [Mass/Vol] 0.97 mg/dL High 0.58 - 0.96 mg/dL [facility] Estimated Glomerular Filtration Rate 70 mL/min/1.73m >=60 mL/min/1.7 3m [facility] Glucose [Mass/Vol] 60 mg/dL Low 74 - 99 mg/dL [facility] Potassium [Moles/Vol] 4.0 mmol/L 3.7 - 5.1 mmol/L [facility] Protein [Mass/Vol] 7.0 g/dL 6.3 - 8.0 g/dL [facility] Sodium [Moles/Vol] 138 mmol/L 136 - 144 mmol/L [facility] Urea nitrogen [Mass/Vol] 10 mg/dL 7 - 21 mg/dL [facility] LIPID PANEL BASICon 09-19-19 22 Cholesterol [Mass/Vol] 142 mg/dL <200 mg/dL Cl [facility] Cholesterol in HDL [Mass/Vol] 39 mg/dL Low >39 mg/dL [facility] Cholesterol in LDL [Mass/Vol] 72 mg/dL <100 mg/dL [facility] Cholesterol in LDL/Cholesterol in HDL [Mass ratio] 1.85 {ratio} <2.54 [facility] Cholesterol in VLDL [Mass/Vol] 31 mg/dL High <30 mg/dL [facility] Cholesterol non HDL [Mass/Vol] 103 mg/dL <130 mg/dL [facility] Cholesterol.total/Choles terol in HDL [Mass ratio] 3.64 {ratio} <5.10 [facility] Fasting Time 14 hours [facility] Triglyceride [Mass/Vol] 157 mg/dL High <150 mg/dL C [facility] COVID-19 SOFIAOrdered By: Mague Rosa on 09-01-2021 SARS-CoV+SARS-CoV-2 (COVID-19) Ag IA.rapid Ql (Resp) Negative Negative [facility] Comment on above: This is a duplicate Wilma SARS Antigen (ELAINA) result to be used for statistical tracking purpose only. No Panel InformationOrdered By: Liyah Rosa on 09-01-2021 SARS Antigen (LFIA) [facility] CBC W/AUTO DIFFon 05-07-2017 % NEUTROPHILS 69.5 [...] Glucose mass conc 78 mg/dL Normal 70-100 [employer] Comment on above: Result Comment: DIAG NOSTIC THRESHOLDS FOR DIABETES AND IMPAIRED FASTING GLUCOSE (IFG) FASTING PLASMA GLUCOSE NORMAL <100 mg/dL IFG 100-125 mg/dL DIABETES >/= 126 mg/dL Potassium molar conc 4.1 mmol/L Normal 3.5-5.4 [facility] [employer] [facility] [employer] [facility] Sodium 144 mmol/L Normal 134-147 [facility] T. PROTEIN 6.8 g/dl Normal 5.8-8.0 [facility] Urea nitrogen 14 mg/dL Normal 10-20 [facility] LIPID PANEL (INCLUDES CALCUL ATED LDL)on 05-07-2017 Cholesterol 172 mg/dL Normal <200 [facility] Cholesterol to HDL Ratio 3.1 {ratio} Normal <5 [facility] HDL-CHOL 56 mg/dl Normal 40-60 [facility] Comment on above: Result Comment: HDL <40 mg/dL IS A RISK FACTOR FOR CORONARY HEART DISEASE. HDL >60 mg/dL IS A NEGATIVE RISK FACTOR FOR CORONARY HEART DISEASE. LDL to HDL Ratio 1.7 Normal <3.5 [employer] LDL-CHOL, CALCULATED 95 mg/dL Normal <130 [employer] Comment on above: Result Comment: LDL CHOLESTEROL REFERENCE RANGE FOR 0-19 YEARS: DESIRABLE <110 mg/dL, BORDERLINE 110-129, HIGH RISK >130 LDL CHOLESTEROL REFERENCE RANGE FOR ADULTS: DESIRABLE <100 mg/dL, BORDERLINE 130-159, HIGH RISK >160REFERENCE RANGES REVISED 10/28/15 ACCORDING TO NCEP GUIDELINES Triglyceride 107 mg/dL Normal <150 [facility] VLDL-CHOL, CALCULATED 21 mg/dL Normal <30 [employer] TSH WITH FT4 REFLEXon 2016 Thyroid stimulating hormone (TSH) 1.480 uIU/mL Normal 0.40-4.40 [employer] Comment on above: Result Comment: [facility] [address] [place], [place] [address]Laboratory Director: Troy Goddard M.D.CLIA No. [id number] CAP Accreditation No. [id number] CARDIOPULMONARY REPORT CLDon 12-24-2016 CARDIOPULMONARY REPORT CLD [facility] ([facility]) [address] [place], [place] [address] [address] [place], [place] [address] [place], [place] [address] Name: ANUPAMA VASQUEZ Visit ID: [id number] Record #: [id number] : 1970CC: Frances Aguilera CNP Pulmonary Function [...] seen. Clinical correlation is recommended. Author: CAROL Rao/jerry/[id number] T: 12/24/2016 10:41 cc: Frances Aguilera CNP Electronically Authenticated and Edited by:Jacki Hess MD On 12/31/2016 09:16 AM EDT Normal [facility] Vital Signs Date Time Vital Sign Value Performing Clinician Facility 11-19-2024 15:04-0400 Body height 172.72 cm Tripp Gruber MD Work Phone: [facility] 11-19-2024 15:04-0400 Body mass index (BMI) [Ratio] 38 kg/m2 Tripp Gruber MD Work Phone: [facility] 11-19-2024 15:04-0400 Body temperature 96.3 [degF] Tripp Gruber MD Work Phone: [facility] 11-19-2024 15:04-0400 Body weight 113.39 kg Tripp Gruber MD Work Phone: [facility] 11-19-2024 15:04-0400 Diastolic blood pressure 56 mm[Hg] Tripp Gruber MD Work Phone: [facility] 11-19-2024 15:04-0400 Heart rate 83 /min Tripp Gurber MD Work Phone: [facility] 11-19-2024 15:04-0400 Respiratory rate 18 /min Tripp Gruber MD Work Phone: [facility] 11-19-2024 15:04-0400 SaO2% (BldA) [Mass fraction] 98 % Tripp Gruber MD Work Phone: [facility] 11-19-2024 15:04-0400 Systolic blood pressure 98 mm[Hg] Tripp Gruber MD Work Phone: [facility] 11-12-2024 10:55-0400 Body height 165.1 cm Guillermo Mendoza MD Work Phone: [facility] 11-12-2024 10:55-0400 Body temperature 98.1 [degF] Guillermo Mendoza MD Work Phone: [facility] 11-12-2024 10:55-0400 Diastolic blood pressure 63 mm[Hg] Guillermo Mendoza MD Work Phone: [facility] 11-12-2024 10:55-0400 Heart rate 82 /min Guillermo Mendoza MD Work Phone: [facility] 11-12-2024 10:55-0400 Respiratory rate 22 /min Guillermo Mendoza MD Work Phone: [facility] 11-12-2024 10:55-0400 SaO2% (BldA) [Mass fraction] 100 % Guillermo Mendoza MD Work Phone: [facility] 11-12-2024 10:55-0400 Systolic blood pressure 122 mm[Hg] Guillermo Mendoza MD Work Phone: [facility] 11-10-2024 12:30-0400 Body height 165.1 cm Reji Garcia MOTORCOACH OPERATOR-HEAD OF DESIGN Work Phone: [facility] 11-10-2024 12:30-0400 Body mass index (BMI) [Ratio] 42.1 kg/m2 Reji Garcia MOTORCOACH OPERATOR-HEAD OF DESIGN Work Phone: [facility] 11-10-2024 12:30-0400 Body weight 114.76 kg Reji Garcia MOTORCOACH OPERATOR-HEAD OF DESIGN Work Phone: [facility] 09-28-2024 23:34-0400 Diastolic blood pressure 63 mm[Hg] Julio Fernandez MD Work Phone: [facility] 09-28-2024 23:34-0400 Heart rate 83 /min Julio Fernandez MD Work Phone: [facility] 09-28-2024 23:34-0400 Respiratory rate 15 /min Julio Fernandez MD Work Phone: [facility] 09-28-2024 23:34-0400 Systolic blood pressure 115 mm[Hg] Julio Fernandez MD Work Phone: [facility] 09-28-2024 20:38-0400 Body temperature 98.1 [degF] Julio Fernandez MD Work Phone: [facility] 09-28-2024 20:38-0400 SaO2% (BldA) [Mass fraction] 100 % Julio Fernandez MD Work Phone: [facility] 09-28-2024 05:00-0400 Body mass index (BMI) [Ratio] 40.87 kg/m2 Julio Fernandez MD Work Phone: [facility] 09-28-2024 05:00-0400 Body weight 114.8 kg Julio Fernandez MD Work Phone: [facility] 09-25-2024 01:00-0400 Body height 167.6 cm Julio Fernandez MD Work Phone: [facility] 09-19-2024 03:52-0400 SaO2% (BldA) [Mass fraction] 95 % Julio Fernandez MD Work Phone: [facility] 09-19-2024 03:52-0400 SaO2% (BldA) [Mass fraction] 78 % Julio Fernandez MD Work Phone: [facility] 09-19-2024 03:47-0400 SaO2% (BldA) [Mass fraction] 78 % [facility] Comment on above: Performed By: #### PINR #### [facility] [address] 09-16-2024 13:14-0400 Body temperature 96.8 [degF] Adonay Molly WOODSHEAD OF DESIGN Work Phone: [facility] 09-16-2024 13:14-0400 Diastolic blood pressure 85 mm[Hg] Adonay Castillo APRN-HEAD OF DESIGN Work Phone: [facility] 09-16-2024 13:14-0400 Heart rate 74 /min Adonay Molly ANSARI-HEAD OF DESIGN Work Phone: [facility] 09-16-2024 13:14-0400 Systolic blood pressure 147 mm[Hg] Adonay Molly ANSARI-HEAD OF DESIGN Work Phone: [facility] 08-18-2024 09:18-0400 Body mass index (BMI) [Ratio] 44.96 kg/m2 Fred Gracia NP Work Phone: [facility] 08-18-2024 09:18-0400 Body temperature 98.2 [degF] Fred Mesaz SWIMMING POOL MAINTENANCE Work Phone: [facility] 08-18-2024 09:18-0400 Body weight 122.56 kg Fred Mesaz [employer]IMMING [employer]OL MAINTENANCE Work Phone: [facility] 08-18-2024 09:18-0400 Diastolic blood pressure 80 mm[Hg] Fred Mesaz SWIMMING POOL MAINTENANCE Work Phone: [facility] 08-18-2024 09:18-0400 Heart rate 98 /min Fred Bonitaz SWIMMING POOL MAINTENANCE Work Phone: [facility] 08-18-2024 09:18-0400 Respiratory rate 24 /min Fred Mesaz SWIMMING [employer]OL MAINTENANCE Work Phone: [facility] 08-18-2024 09:18-0400 SaO2% (BldA) [Mass fraction] 95 % Fred Mesaz [employer]IMMING [employer] MAINTENANCE Work Phone: [facility] 08-18-2024 09:18-0400 Systolic blood pressure 110 mm[Hg] Fred Mesaz SWIMMING [employer]OL MAINTENANCE Work Phone: [facility] 06-17-2024 09:33-0500 Body mass index (BMI) [Ratio] 47.09 kg/m2 Sherrie Boone SWIMMING [employer]OL MAINTENANCE Work Phone: [facility] 06-17-2024 09:33-0500 Body temperature 97.7 [degF] Sherrie Boone SWIMMING POOL MAINTENANCE Work Phone: [facility] 06-17-2024 09:33-0500 Body weight 128.37 kg Sherrie Boone SWIMMING [employer]OL MAINTENANCE Work Phone: [facility] 06-17-2024 09:33-0500 Diastolic blood pressure 82 mm[Hg] Sherrie Boone SWIMMING POOL MAINTENANCE Work Phone: [facility] 06-17-2024 09:33-0500 Heart rate 100 /min Sherrie Boone SWIMMING [employer]OL MAINTENANCE Work Phone: [facility] 06-17-2024 09:33-0500 Respiratory rate 16 /min Sherrie Augustink SWIMMING POOL MAINTENANCE Work Phone: [facility] 06-17-2024 09:33-0500 SaO2% (BldA) [Mass fraction] 97 % Sherrie Augustink SWIMMING POOL MAINTENANCE Work Phone: [facility] 06-17-2024 09:33-0500 Systolic blood pressure 120 mm[Hg] Sherrie Augustink SWIMMING POOL MAINTENANCE Work Phone: [facility] 05-18-2024 09:18-0500 Body height 165.1 cm Fred Mesaz SWIMMING [employer]OL MAINTENANCE Work Phone: [facility] 05-18-2024 09:18-0500 Body mass index (BMI) [Ratio] 46.93 kg/m2 Fred Monikahholz SWIMMING [employer] MAINTENANCE Work Phone: [facility] 05-18-2024 09:18-0500 Body temperature 98.1 [degF] Fred Monikahholz SWIMMING [employer]OL MAINTENANCE Work Phone: [facility] 05-18-2024 09:18-0500 Body weight 127.91 kg Fredvirginia Frankhholz SWIMMING POOL MAINTENANCE Work Phone: [facility] 05-18-2024 09:18-0500 Diastolic blood pressure 90 mm[Hg] Fred Monikahholz SWIMMING [employer]OL MAINTENANCE Work Phone: [facility] 05-18-2024 09:18-0500 Heart rate 81 /min Fred Aichholz SWIMMING [employer]OL MAINTENANCE Work Phone: [facility] 05-18-2024 09:18-0500 Respiratory rate 19 /min Fred Aichholz SWIMMING [employer]OL MAINTENANCE Work Phone: [facility] 05-18-2024 09:18-0500 SaO2% (BldA) [Mass fraction] 95 % Fred Aichholz [employer]IMMING [employer] MAINTENANCE Work Phone: [facility] 05-18-2024 09:18-0500 Systolic blood pressure 144 mm[Hg] Fred Monikareyholz [employer]IMMING [employer]OL MAINTENANCE Work Phone: [facility] 04-27-2024 09:03-0500 Body height 165.1 cm [facility] Work Phone: [facility] 04-27-2024 09:03-0500 Body mass index (BMI) [Ratio] 46.43 kg/m2 [facility] Work Phone: [facility] 04-27-2024 09:03-0500 Body weight 126.55 kg [facility] Work Phone: [facility] 03-05-2024 10:04-0400 Body height 165.1 cm Fred Aichholz SWIMMING [employer]OL MAINTENANCE Work Phone: [facility] 03-05-2024 10:04-0400 Body mass index (BMI) [Ratio] 46.49 kg/m2 Fred Aichholz SWIMMING [employer]OL MAINTENANCE Work Phone: [facility] 03-05-2024 10:04-0400 Body temperature 97.59 [degF] Fred Monikahholz SWIMMING POOL MAINTENANCE Work Phone: [facility] 03-05-2024 10:04-0400 Body weight 126.73 kg Fred Aichholz SWIMMING POOL MAINTENANCE Work Phone: [facility] 03-05-2024 10:04-0400 Diastolic blood pressure 82 mm[Hg] Fred Aichholz SWIMMING [employer]OL MAINTENANCE Work Phone: [facility] 03-05-2024 10:04-0400 Heart rate 82 /min Fred Aichholz SWIMMING [employer]OL MAINTENANCE Work Phone: [facility] 03-05-2024 10:04-0400 Respiratory rate 18 /min Fred Aichholz SWIMMING [employer] MAINTENANCE Work Phone: [facility] 03-05-2024 10:04-0400 SaO2% (BldA) [Mass fraction] 97 % Fred Aichholz [employer]MING [employer] MAINTENANCE Work Phone: [facility] 03-05-2024 10:04-0400 Systolic blood pressure 112 mm[Hg] Fred Monikahvicky [employer]MING [employer]OL MAINTENANCE Work Phone: [facility] 02-25-2024 08:32-0400 Body height 165.1 cm Eliazar Brooks DO Work Phone: [facility] 02-25-2024 08:32-0400 Body mass index (BMI) [Ratio] 48.09 kg/m2 Eliazar Brooks DO Work Phone: [facility] 02-25-2024 08:32-0400 Body weight 131.09 kg Eliazar Brooks DO Work Phone: [facility] 02-10-2024 17:11-0400 Heart rate 82 /min Eliazar Brooks [facility] 02-10-2024 17:11-0400 SaO2% (BldA) [Mass fraction] 94 % Eliazar Brooks [facility] 02-10-2024 17:11-0400 Diastolic blood pressure 89 mm[Hg] Eliazar Brooks [facility] 02-10-2024 17:11-0400 Mean blood pressure 109 mm[Hg] Eliazar Brooks [facility] 02-10-2024 17:11-0400 Systolic blood pressure 148 mm[Hg] Eliazar Brooks [facility] 02-10-2024 17:11-0400 Respiratory rate 16 /min Eliazar Brooks [facility] 02-10-2024 17:11-0400 Body temperature 98.24 [degF] Eliazar Brooks [facility] 02-10-2024 16:06-0400 Heart rate 81 /min Eliazar Brooks [facility] 02-10-2024 16:06-0400 SaO2% (BldA) [Mass fraction] 99 % Eliazar Brooks [facility] 02-10-2024 16:06-0400 Diastolic blood pressure 81 mm[Hg] Eliazar Brooks [facility] 02-10-2024 16:06-0400 Mean blood pressure 98 mm[Hg] Eliazar Zbigniew [facility] 02-10-2024 16:06-0400 Systolic blood pressure 134 mm[Hg] Eliazar Zbigniew [facility] 02-10-2024 16:05-0400 Respiratory rate 16 /min Eliazar Zbigniew [facility] 02-10-2024 16:00-0400 Body temperature 97.52 [degF] Eliazar Brooks [facility] 02-10-2024 16:00-0400 Respiratory rate 22 /min Eliazar Brooks [facility] 02-10-2024 16:00-0400 SaO2% (BldA) [Mass fraction] 95 % Eliazar Zbigniew [facility] 02-10-2024 16:00-0400 Systolic blood pressure 139 mm[Hg] Eliazar Zbigniew [facility] 02-10-2024 15:50-0400 Mean blood pressure 106 mm[Hg] Eliazar Zbigniew [facility] 02-10-2024 15:50-0400 Respiratory rate 24 /min Eliazar Brooks [facility] 02-10-2024 15:45-0400 Respiratory rate 9 /min Eliazar Zbigniew [facility] 02-10-2024 15:37-0400 Blood Pressure Location Eliazar Brooks [facility] 02-10-2024 15:37-0400 Body temperature 97.7 [degF] Eliazar Brooks [facility] 02-10-2024 15:30-0400 Respiratory rate 18 /min Eliazar Brooks [facility] 02-10-2024 12:04-0400 Blood Pressure Location Eliazar Brooks [facility] 02-10-2024 12:04-0400 Mean blood pressure 100 mm[Hg] Eliazar Brooks [facility] 02-10-2024 12:04-0400 Heart rate 94 /min Eliazar Brooks [facility] 02-10-2024 12:03-0400 Body temperature 97.88 [degF] Eliazar Brooks [facility] 02-10-2024 12:03-0400 Blood Pressure Location Eliazar Brooks [facility] 02-03-2024 14:28-0400 Body height 165.1 cm Fredvirginia Gracia SWIMMING POOL MAINTENANCE Work Phone: [facility] 02-03-2024 14:28-0400 Body mass index (BMI) [Ratio] 48.09 kg/m2 Fred Bonitaz [employer]INTENAN[employer] Work Phone: [facility] 02-03-2024 14:28-0400 Body temperature 98.49 [degF] Fred Bonitaz [employer] MAINTENAN[employer] Work Phone: [facility] 02-03-2024 14:28-0400 Body weight 131.09 kg Fred Bonitaz [employer]INTENAN[employer] Work Phone: [facility] 02-03-2024 14:28-0400 Diastolic blood pressure 90 mm[Hg] Fred Bonitaz [employer]MING [employer] MAINTENANCE Work Phone: [facility] 02-03-2024 14:28-0400 Heart rate 83 /min Fred Moniakhjesicaz [employer]IMMING [employer] MAINTENANCE Work Phone: [facility] 02-03-2024 14:28-0400 Respiratory rate 18 /min Fred Monikahholz [employer] MAINTENANCE Work Phone: [facility] 02-03-2024 14:28-0400 SaO2% (BldA) [Mass fraction] 93 % Fred Aichholz [employer]MING [employer] MAINTENANCE Work Phone: [facility] 02-03-2024 14:28-0400 Systolic blood pressure 128 mm[Hg] Fred Basil [employer]MING [employer] MAINTENANCE Work Phone: [facility] 01-30-2024 10:45-0400 Body height 165.1 cm Eliazar Brooks DO Work Phone: [facility] 01-30-2024 10:45-0400 Body mass index (BMI) [Ratio] 48.92 kg/m2 Eliazar Brooks DO Work Phone: [facility] 01-30-2024 10:45-0400 Body weight 133.36 kg Eliazar Brooks DO Work Phone: [facility] 07-10-2023 15:53-0500 Body height 167.6 cm Paris Paris DO Work Phone: [facility] 07-10-2023 15:53-0500 Body weight 134.26 kg Paris Paris DO Work Phone: [facility] 07-10-2023 15:53-0500 Heart rate 89 /min Paris Paris DO Work Phone: [facility] 07-10-2023 15:53-0500 SaO2% (BldA) [Mass fraction] 97 % Paris Paris DO Work Phone: [facility] 06-26-2023 11:34-0500 Body height 165.1 cm Shaikh Jonn BENITEZ Work Phone: [facility] 06-26-2023 11:34-0500 Body mass index (BMI) [Ratio] 48.09 kg/m2 Shaikh Jonn BENITEZ Work Phone: [facility] 06-26-2023 11:34-0500 Body temperature 98.6 [degF] Shaikh Jonn BENITEZ Work Phone: [facility] 06-26-2023 11:34-0500 Body weight 131.09 kg Shaikh Jonn BENITEZ Work Phone: [facility] 06-26-2023 11:34-0500 Diastolic blood pressure 80 mm[Hg] Shaikh Jonn BENITEZ Work Phone: [facility] 06-26-2023 11:34-0500 Heart rate 77 /min Shaikh Jonn BENITEZ Work Phone: [facility] 06-26-2023 11:34-0500 SaO2% (BldA) [Mass fraction] 96 % Shaikh Jonn BENITEZ Work Phone: [facility] 06-26-2023 11:34-0500 Systolic blood pressure 136 mm[Hg] Shaikh Jonn BENITEZ Work Phone: [facility] 04-18-2022 10:30-0500 Body height 173.99 cm Liyah Rosa Other [employer] Other 04-18-2022 10:30-0500 Body mass index (BMI) [Ratio] 46.68 kg/m2 Liyah Rosa Other [employer] Other 04-18-2022 10:30-0500 Body weight 141.34 kg Liyah Rosa Other [employer] Other 04-18-2022 10:30-0500 Diastolic blood pressure 89 mm[Hg] Liyah Rosa Other [employer] Other 04-18-2022 10:30-0500 Systolic blood pressure 129 mm[Hg] Liyah Rosa Other [employer] Other 03-22-2022 12:54-0400 Body height 172.7 cm Jessica Clarke PA-C Work Phone: [facility] 03-22-2022 12:54-0400 Body weight 131.54 kg Jessica Young PA-C Work Phone: [facility] 03-22-2022 12:54-0400 Diastolic blood pressure 76 mm[Hg] Jessica Young PA-C Work Phone: [facility] 03-22-2022 12:54-0400 Heart rate 108 /min Jessica Young PA-C Work Phone: [facility] 03-22-2022 12:54-0400 Systolic blood pressure 129 mm[Hg] Jessica Young PA-C Work Phone: [facility] 03-22-2022 09:30-0400 Body temperature 97 [degF] Infusion 10 Work Phone: [facility] 03-22-2022 09:30-0400 Diastolic blood pressure 83 mm[Hg] Infusion 10 Work Phone: [facility] 03-22-2022 09:30-0400 Heart rate 79 /min Infusion 10 Work Phone: [facility] 03-22-2022 09:30-0400 Systolic blood pressure 152 mm[Hg] Infusion 10 Work Phone: [facility] 12-13-2021 10:30-0400 Body height 173.99 cm Liyah Rosa Other [employer] [facility] [employer] Other 12-13-2021 10:30-0400 Body mass index (BMI) [Ratio] 45.55 kg/m2 Liyah Rosa Other [employer] Other 12-13-2021 10:30-0400 Body weight 137.89 kg Liyah Rosa Other [employer] Other 11-14-2021 08:42-0400 Body height 174 cm Jessica Young PA-C Work Phone: [facility] 11-14-2021 08:42-0400 Body weight 132 kg Jessica Young PA-C Work Phone: [facility] 11-14-2021 08:42-0400 Diastolic blood pressure 68 mm[Hg] Jessica IBANEZ-C Work Phone: [facility] 11-14-2021 08:42-0400 Heart rate 88 /min Jessica Clarke PA-C Work Phone: [facility] 11-14-2021 08:42-0400 Systolic blood pressure 112 mm[Hg] Jessica Clarke PA-C Work Phone: [facility] 09-18-2021 12:00-0400 Body temperature 97.9 [degF] Infusion 2 Work Phone: [facility] 09-18-2021 12:00-0400 Diastolic blood pressure 89 mm[Hg] Infusion 2 Work Phone: [facility] 09-18-2021 12:00-0400 Heart rate 93 /min Infusion 2 Work Phone: [facility] 09-18-2021 12:00-0400 Respiratory rate 16 /min Infusion 2 Work Phone: [facility] 09-18-2021 12:00-0400 Systolic blood pressure 131 mm[Hg] Infusion 2 Work Phone: [facility] 09-18-2021 08:00-0400 Body height 174 cm Infusion 2 Work Phone: [facility] 09-18-2021 08:00-0400 Body weight 117.94 kg Infusion 2 Work Phone: [facility] 09-05-2021 10:45-0400 Diastolic blood pressure 68 mm[Hg] Services [facility] Work Phone: [facility] 09-05-2021 10:45-0400 Heart rate 91 /min Services [facility] Work Phone: [facility] 09-05-2021 10:45-0400 Respiratory rate 18 /min Services [facility] Work Phone: [facility] 09-05-2021 10:45-0400 SaO2% (BldA) [Mass fraction] 99 % Services [employer] Phone: [facility] 09-05-2021 10:45-0400 Systolic blood pressure 122 mm[Hg] Services [employer] Phone: [facility] 09-05-2021 08:26-0400 Body height 173.99 cm Services [employer] Phone: [facility] 09-05-2021 08:26-0400 Body mass index (BMI) [Ratio] 43.4 kg/m2 [employer] Phone: [facility] 09-05-2021 08:26-0400 Body temperature 98.2 [degF] Services [employer] Phone: [facility] 09-05-2021 08:26-0400 Body weight 131.54 kg Services [employer] Phone: [facility] 08-14-2021 11:30-0400 Body height 173.99 cm Liyah Rosa Other [employer] Other 08-14-2021 11:30-0400 Body mass index (BMI) [Ratio] 43.45 kg/m2 Liyah Rosa Other [employer] Other 08-14-2021 11:30-0400 Body weight 131.54 kg Liyah Rosa Other [employer] Other Encounters Encounter Date Encounter Type Care Provider Facility Start: 02-17-2025 ambulatory Silvia Bustos Facility:[facility] Start: 11-27-2024 End: 11-27-2024 Orders Only Recto Patricia [facility] - Radiation Oncology Start: 11-24-2024 End: 11-24-2024 Documentation procedure Priyanka [facility] [place] - Medical Oncology Start: 11-24-2024 End: 11-24-2024 ambulatory HENRY MATTHEWS Facility:[facility] Start: 11-24-2024 End: 11-24-2024 Patient encounter procedure REIGNA MATTHEWS [facility] Start: 11-19-2024 End: 11-19-2024 Patient encounter procedure Storm Chapman MD [facility] Work Phone: Start: 11-19-2024 End: 11-19-2024 ambulatory NON STAFF [facility] Work Phone: Comment on above: GBM (glioblastoma mu ltiforme) ([facility]) (Primary Dx) Start: 11-19-2024 ambulatory [facility] Start: 11-13-2024 End: 11-13-2024 Telephone encounter Guillermo Mendoza MD Work Phone: [facility] - Radiation Oncology Start: 11-13-2024 End: 11-13-2024 ambulatory [facility] Start: 11-13-2024 End: 11-13-2024 ambulatory [facility] Start: 11-13-2024 End: 11-13-2024 [facility] Start: 11-12-2024 End: 11-12-2024 Office outpatient new 60 minutes Guillermo Mendoza MD Work Phone: [facility] - Medical Oncology Comment on above: GBM (glioblastoma mu ltiforme) ([facility]) (Primary Dx) Start: 11-12-2024 End: 11-12-2024 Orders Only Nancy Hernandez RN [facility] - Radiation Oncology Comment on above: Glioblastoma ([facility]) (Primary Dx) Start: 11-11-2024 End: 11-11-2024 Telephone encounter Ellie Coleman CMA [facility] Hematology Oncology, A Department of [facility] Comment on above: office note Received referral Ra diation consult lvm Start: 11-10-2024 End: 11-10-2024 Postop follow up visit related to original px Reji Garcia MOTORCOACH OPERATOR-HEAD OF DESIGN Work Phone: [facility] Comment on above: Brain tumor ([facility] ) (Primary Dx); Double vision Start: 11-10-2024 End: 11-10-2024 [facility] Start: 11-07-2024 End: 11-07-2024 Clinisync Result Encounter Sary Colin MD Work Phone: [facility] External [facility] Unsolicited Start: 11-07-2024 End: 11-07-2024 Clinisync Result Encounter Sary Colin MD Work Phone: [facility] External [facility] Unsolicited Start: 10-17-2024 End: 10-17-2024 Clinisync Result Encounter Generic External Data Provider [facility] External [facility] Unsolicited Start: 10-17-2024 End: 10-17-2024 Clinisync Result Encounter Generic External Data Provider [facility] External [facility] Unsolicited Start: 10-17-2024 End: 10-17-2024 ambulatory Alonzo Holguin [facility] Work Phone: Start: 10-17-2024 End: 10-17-2024 Departed Referred Tripp Gruber MD Work Phone: [facility] Start: 10-09-2024 End: 10-09-2024 ambulatory HENRY MATTHEWS Facility: [place] Start: 10-06-2024 ambulatory Eliazar Brooks Facility :[facility] [place] Start: 09-29-2024 End: 09-29-2024 Telephone encounter Anya Soni RN [facility] Comment on above: incision Start: 09-19-2024 End: 09-19-2024 ambulatory UNKNOWN PROVIDER Facility:[facility] Start: 09-18-2024 End: 09-29-2024 Evaluation and management of inpatient Lewis Botello Work Phone: [facility] - GEN 9 Acute Start: 09-18-2024 End: 09-18-2024 Clinisync Result Encounter Sary Colin MD Work Phone: [facility] External [facility] Unsolicited Start: 09-18-2024 End: 09-18-2024 Clinisync Result Encounter Sary Colin MD Work Phone: [facility] External Department Unsolicited Start: 09-16-2024 End: 09-16-2024 ambulatory ADONAY CASTILLO [facility] Start: 09-16-2024 End: 09-16-2024 Office outpatient new 20 minutes Adonay Castillo MOTORCOACH OPERATOR-HEAD OF DESIGN Work Phone: [facility] Comment on above: Dermatitis associate d with moisture (Primary Dx); Pressure injury of left buttock, stage 2 ([facility]) Start: 08-28-2024 End: 09-01-2024 Emergency department patient visit MUNIRA HARO [facility] Start: 08-28-2024 End: 09-01-2024 Evaluation and management of inpatient [facility]ED T[facility] Start: 08-23-2024 End: 08-25-2024 Clinisync Result Encounter Generic External Data Provider [facility] External [facility] Unsolicited Start: 08-23-2024 End: 08-25-2024 Clinisync Result Encounter Generic External Data Provider [facility] External Department Unsolicited Start: 08-23-2024 End: 08-23-2024 Refill Fred Tellezvicky SWIMM[employer] MAINTENANCE Work Phone: [facility] Comment on above: 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 (Primary Dx); Yeast dermatitis Start: 08-22-2024 End: 08-22-2024 ambulatory Tripp Gruber [facility] Work Phone: Start: 08-22-2024 End: 08-22-2024 Departed Referred Tripp Gruber MD Work Phone: [facility] Start: 08-22-2024 End: 08-23-2024 Clinisync Result Encounter Generic External Data Provider [facility] External Department Unsolicited Start: 08-22-2024 End: 08-23-2024 Clinisync Result Encounter Generic External Data Provider [facility] External [facility] Unsolicited Start: 08-18-2024 End: 08-18-2024 Bamboo flowsheet Fred Bonitaz [employer] MAINTENANCE Work Phone: [facility] Start: 08-18-2024 End: 08-18-2024 Bamboo flowsheet Fred Aichholz [employer] MAINTENANCE Work Phone: [facility] Start: 08-18-2024 End: 08-18-2024 Office outpatient visit 25 minutes Fred Bonitaz [employer] MAINTENANCE Work Phone: [facility] Comment on above: Generalized anxiety disorder with panic attacks (CMS/HCC) (Primary Dx); Morbid (severe) obesity due to excess calories (CMS/HCC); Major depressive disorder, recurrent, moderate (CMS/HCC); Primary insomnia Start: 08-18-2024 End: 08-18-2024 ambulatory FRED AICHHOLZ Not Available Start: 08-03-2024 End: 08-03-2024 Telephone encounter Elva Rodriguez SWIMMING [employer] MAINTENANCE Work Phone: [facility] Start: 07-07-2024 End: 07-07-2024 Bamboo flowsheet Fred Aichholz SWIMMING [employer]OL MAINTENANCE Work Phone: [facility] Start: 07-07-2024 End: 07-07-2024 Bamboo flowsheet Fred Aichholz SWIMMING [employer]OL MAINTENANCE Work Phone: [facility] Start: 07-07-2024 End: 07-07-2024 ambulatory FRED AICHHOLZ Not Available Start: 06-30-2024 End: 06-30-2024 Clinisync Result Encounter Fred Bonitaz SWIMM[employer] MAINTENANCE Work Phone: [facility] External [facility] Unsolicited Start: 06-30-2024 End: 06-30-2024 Clinisync Result Encounter Fred Monikacaitiez SWIMMING [employer] MAINTENANCE Work Phone: [facility] External Department Unsolicited Start: 06-17-2024 End: 01-29-2025 Bamboo flowsheet Sherrie Boone SWIMMING POOL MAINTENANCE Work Phone: [facility] Start: 06-17-2024 End: 06-17-2024 Bamboo flowsheet Sherrie Boone SWIMMING POOL MAINTENANCE Work Phone: [facility] Start: 06-17-2024 End: 06-17-2024 Office outpatient visit 10 minutes Sherrie Augustink [employer] MAINTENANCE Work Phone: [facility] Comment on above: Acute non-recurrent frontal sinusitis (Primary Dx) Start: 06-17-2024 End: 06-17-2024 ambulatory SHERRIE CORNEJOTRICK Not Available Start: 05-18-2024 End: 05-18-2024 Bamboo flowsheet Fred Gracia SWIMMING POOL MAINTENANCE Work Phone: [facility] Start: 05-18-2024 End: 05-18-2024 Bamboo flowsheet Fred Basil SWIMMING POOL MAINTENANCE Work Phone: [facility] Start: 05-18-2024 End: 05-18-2024 Patient encounter procedure Fredvirginia Gracia SWIMMING POOL MAINTENANCE Work Phone: [facility] Comment on above: [...] Orders Only Jessica Clarke PA-C Work Phone: [facility] Start: 05-04-2024 End: 05-05-2024 Telephone encounter Aria Kumar PT [facility] Comment on above: re: PT Eval tomorrow ; Call Back Start: 04-27-2024 End: 04-27-2024 Telephone encounter Fred Gracia NP Work Phone: [facility] Start: 04-27-2024 End: 04-27-2024 Patient encounter procedure Yahaira Vazquez PA Work Phone: [facility] Comment on above: Adhesive capsulitis of left shoulder (Primary Dx); S/P arthroscopy of left shoulder Start: 04-27-2024 End: 04-27-2024 ambulatory YAHAIRA VAZQUEZ Not Available Start: 04-26-2024 End: 04-27-2024 Refill Fred Gracia SWIMMING POOL MAINTENANCE Work Phone: [facility] Comment on above: Anxiety and depressi on (CMS/HCC) Start: 04-15-2024 End: 04-15-2024 Refill Fred Gracia SWIMMING POOL MAINTENANCE Work Phone: [facility] Comment on above: Acute cough (Primary Dx) Start: 04-14-2024 End: 04-14-2024 Refill Fred Gracia SWIMMING [employer]OL MAINTENANCE Work Phone: [facility] Comment on [...] 03-25-2024 End: 03-25-2024 Bamboo flowsheet Inderjit Pelletier PHOTOGRAPHER MOTION PICTURE [facility] Start: 03-25-2024 End: 03-25-2024 Bamboo flowsheet Inderjit Pelletier PHOTOGRAPHER [employer] [facility] Start: 03-25-2024 End: 03-25-2024 ambulatory Inderjit Pelletier PHOTOGRAPHER [employer] [facility] Comment on above: Left shoulder pain, unspecified chronicity (Primary Dx); S/P arthroscopy of left shoulder Start: 03-13-2024 End: 03-13-2024 Bamboo flowsheet nIderjit Pelletier PHOTOGRAPHER [employer]ION PICTURE [facility] Start: 03-13-2024 End: 03-13-2024 Bamboo flowsheet Inderjit Pelletier PHOTOGRAPHER [employer] PICTURE [facility] Start: 03-13-2024 End: 03-13-2024 ambulatory Inderjit Pelletier PHOTOGRAPHER [employer]CTURE [facility] Comment on above: Left [...] Start: 03-06-2024 End: 03-06-2024 ambulatory Inderjit Pelletier PHOTOGRAPHER [employer]CTURE [facility] Comment on above: S/P arthroscopy of l eft shoulder (Primary Dx) Start: 03-05-2024 End: 03-05-2024 Bamboo flowsheet Fred Gracia SWIMMING POOL MAINTENANCE Work Phone: [facility] Start: 03-05-2024 End: 03-05-2024 Bamboo flowsheet Fred Gracia SWIMMING POOL MAINTENANCE Work Phone: [facility] Start: 03-05-2024 End: 03-05-2024 Office outpatient visit 15 minutes Fred Gracia SWIMMING POOL MAINTENANCE Work Phone: [facility] Comment on above: Anxiety and depressi on (CMS/HCC) (Primary Dx); Needs flu shot; Candidiasis of skin Start: 03-05-2024 End: 03-05-2024 ambulatory FRED GRACIA Not Available Start: 03-03-2024 End: 03-03-2024 Bamboo flowsheet Inderjit Pelletier PHOTOGRAPHER [employer] PI[employer]URE [facility] Start: 03-03-2024 End: 03-03-2024 Bamboo flowsheet Inderjit Pelletier PHOTOGRAPHER [employer]ION PICTURE [facility] Start: 03-03-2024 End: 03-03-2024 ambulatory Inderjit Pelletier PHOTOGRAPHER [employer]ION PICTURE [facility] Comment on above: S/P [...] to same day surgery center Eliazar Brooks [facility] Start: 02-10-2024 End: 02-10-2024 ambulatory Eliazar Brooks Facility[facility] Start: 02-05-2024 End: 02-05-2024 ambulatory FRANCES AGUILERA Facility:[facility] Start: 02-03-2024 End: 02-03-2024 Office outpatient visit 15 minutes Fred Gracia SWIMMING POOL MAINTENANCE Work Phone: [facility] Comment on above: Diverticulitis (Prim donna Dx); Class 3 severe obesity without serious comorbidity with body mass index (BMI) of 45.0 to 49.9 in adult, unspecified obesity type (CMS/HCC) Start: 02-03-2024 End: 02-03-2024 Bamboo flowsheet Fred Gracia SWIMMING POOL MAINTENANCE Work Phone: [facility] Start: 02-03-2024 End: 02-03-2024 Bamboo flowsheet Fred Gracia SWIMMING POOL MAINTENANCE Work Phone: [facility] Start: 02-03-2024 [...] 01-29-2024 End: 01-29-2024 Orders Only Fred Gracia SWIMMING POOL MAINTENANCE Work Phone: [facility] Comment on above: Multiple sclerosis ( CMS/HCC) (Primary Dx) Start: 01-23-2024 End: 01-23-2024 Clinisync Result Encounter Fred Gracia SWIMMING POOL MAINTENANCE Work Phone: [facility] External Department Unsolicited Start: 01-23-2024 End: 01-23-2024 Clinisync Result Encounter Fred Gracia SWIMMING POOL MAINTENANCE Work Phone: [facility] External Department Unsolicited Start: 01-23-2024 End: 01-23-2024 ambulatory SHERRIE BOONE Not Available Start: 01-14-2024 End: 01-17-2024 Telephone encounter Jessica Clarke PA-C Work Phone: [facility] Comment on above: Orders Start: 01-06-2024 End: 01-06-2024 ambulatory FRED TELLEZHOLZ Not Available Start: 12-24-2023 End: 01-10-2024 Pre-admission assessment Eliazar Brooks [facility] Start: 12-24-2023 End: 12-24-2023 ambulatory ELIAZAR BROOKS Not Available Start: 12-19-2023 [facility] Work Phone: Infusion Start: 12-02-2023 End: 12-02-2023 ambulatory FRED MONIKAHHOLZ Not Available Start: 11-27-2023 Orders Only Jessica Almodovar Work Phone: [facility] Comment on above: Multiple sclerosis ( HCC) (Primary Dx); Vitamin D deficiency Start: 11-26-2023 Orders Only Sarthak Escobar MD, PhD Work Phone: [facility] Start: 11-13-2023 End: 11-13-2023 ambulatory YAHAIRA D HILLS Not Available Start: 11-05-2023 End: 11-05-2023 ambulatory YAHAIRA D HILLS Not Available Start: 10-10-2023 End: 10-10-2023 ambulatory FRED AICHHOLZ Not Available Start: 10-07-2023 End: 10-07-2023 ambulatory YAHAIRA D HILLS Not Available Start: 09-06-2023 End: 09-06-2023 ambulatory Lashaun IBANEZ-C Work Phone: [facility] Comment on above: Left arm weakness (P rimary Dx) Start: 09-06-2023 End: 09-06-2023 Telemedicine consultation with patient Lashaun Bonus PA-C Work Phone: [facility] Start: 08-22-2023 ambulatory Jessica Saavedra A-C Work Phone: [facility] Comment on above: Spine Start: 08-22-2023 Chart abstracting None (Historical) Neurology Start: 08-21-2023 Telephone encounter Jessica Cabello aline PA-C Work Phone: [facility] Comment on above: Patient Question Start: 08-08-[address] [facility] ty:[place] Start: 07-15-2023 Telephone encounter Jessica Cabello aline PA-C Work Phone: [facility] Comment on above: Orders (Order for MR I needed for Brain and Cervical) Start: 07-10-2023 End: 07-10-2023 ambulatory JESSICA CLARKE Facility:[place] Start: 07-10-2023 End: 07-10-2023 Patient encounter procedure [...] Paris E Paris DO Work Phone: [facility] Start: 06-26-2023 End: 06-26-2023 Office outpatient visit 25 minutes Shaikh Jonn BENITEZ Work Phone: [facility] Comment on above: Multiple sclerosis ( CMS/HCC) (Primary Dx); Primary hypertension (CMS/HCC); Anxiety and depression (CMS/HCC); COPD with exacerbation (CMS/HCC); Non-recurrent acute suppurative otitis media of left ear without spontaneous rupture of tympanic membrane Start: 05-22-2023 End: 05-22-2023 ambulatory SARTHAK ESCOBAR Facility:[place] Start: 05-02-2023 End: 05-02-2023 ambulatory Jessica Clarke PA-C Work Phone: [facility] Comment on above: Multiple sclerosis ( HCC) (Primary Dx) Start: 05-02-2023 End: 05-02-2023 Telemedicine consultation with patient Jessica Clarke PA-C Work Phone: [facility] Start: 04-22-2023 ambulatory Jessica Clarke P A-C Work Phone: [facility] Comment on above: Skull Start: 04-19-2023 ambulatory Jessica Clarke P A-C Work Phone: [facility] Comment on above: Skull Start: 10-17-2022 ambulatory Valdez Sousa Work Phone: [facility] [place] Start: 10-01-2022 End: 10-01-2022 ambulatory HEAD OF DESIGN FRED BASIL Facility:[facility] Start: 10-01-2022 ambulatory RUBINA IBARRA BASIL Facil ity:[facility] Start: 09-21-2022 End: 09-21-2022 ambulatory YAHAIRA MCKEON . Facility:[facility] Start: 08-30-2022 Orders Only Jessica Clarke P A-C Work Phone: [facility] Comment on above: Multiple sclerosis, relapsing-remitting (HCC) (Primary Dx) Start: 06-05-2022 End: 06-06-[address] DOCTOR BULL Facility:[facility] Start: 04-18-2022 End: 04-18-2022 ambulatory Liyah Rosa Other [employer] Other Start: 04-18-2022 Office outpatient vi sit 15 minutes Liyah Rosa [facility] Gastroenterology Start: 03-30-2022 Telephone encounter Valdez aleman MD Work Phone: [address] [place] [address] Comment on above: Patient Update Start: 03-22-2022 End: 03-22-2022 Patient encounter procedure Jessica Clarke PA-C Work Phone: [facility] Comment on above: Multiple sclerosis, relapsing-remitting (HCC) (Primary Dx) Start: 03-22-2022 End: 03-22-2022 ambulatory Infusion [facility] 10 Work Phone: Multiple Sclerosis Comment on above: Multiple sclerosis ( HCC) (Primary Dx) Start: 03-16-2022 Orders Only Sarthak Escobar MD, PhD Work Phone: [facility] Start: 03-07-2022 End: 03-07-2022 ambulatory HEAD OF DESIGN [employer] Facility: Start: 03-06-2022 ambulatory Valdez Sousa Work Phone: [facility] Start: 02-12-2022 Telephone encounter Jessica mireles PA-C Work Phone: Neurology Comment on above: Appointment (Called pt LVM to see about setting up pt and psycology.) Start: 01-16-2022 End: 01-16-2022 ambulatory Jojo Pickard OTR/L Work Phone: [facility] Occupational Therapy Comment on above: Multiple sclerosis, relapsing-remitting (HCC) Start: 12-13-2021 End: 12-13-2021 ambulatory Liyah Rosa Other [employer] Other Start: 12-13-2021 Office outpatient vi sit 15 minutes Liyah Rosa [facility] Gastroenterology Start: 11-15-2021 ambulatory Valdez Sousa Work Phone: Internal Medicine [facility] [place] Start: 11-14-2021 End: 11-14-2021 Patient encounter procedure Jessica Clarke PA-C Work Phone: [facility] Comment on above: Multiple sclerosis, relapsing-remitting (HCC) (Primary Dx) Start: 11-14-2021 End: 11-14-2021 Subsequent hospital visit by physician Cara Manning (I-Stat/3t) Work Phone: Radiology Comment on above: Multiple sclerosis, relapsing-remitting (HCC) [G35] Start: 09-18-2021 End: 09-18-2021 ambulatory Infusion [facility] 2 Work Phone: Multiple Sclerosis Comment on above: Multiple sclerosis ( HCC) (Primary Dx); Multiple sclerosis, relapsing-remitting (HCC) Start: 09-15-2021 End: 09-15-2021 ambulatory Jessica Clarke PA-C Work Phone: [facility] Comment on above: Multiple sclerosis, relapsing-remitting (HCC) Start: 09-15-2021 End: 09-15-2021 Telemedicine consultation with patient Jessica Vince FIGUEROA Work Phone: [facility] Start: 09-14-2021 End: 09-14-2021 ambulatory Liyah Rosa Other [employer] Other Start: 09-14-2021 Telephone encounter Liyah Carlisle ck [employer] Start: 09-05-2021 End: 09-05-2021 Admission to same day surgery center Services [facility] Work Phone: [facility]-Digestive Health Start: 09-01-2021 End: 09-01-2021 Patient encounter procedure Services [facility] Work Phone: [facility] Start: 08-14-2021 End: 08-14-2021 ambulatory Liyah Rosa Other [employer] Other Start: 08-14-2021 Office outpatient ne w 45 minutes Liyah Rosa [facility] Start: 07-28-2020 End: 07-28-2020 Patient encounter procedure Jazmin Shaikh Work Phone: [facility] Work Phone: Start: 12-20-2016 End: 12-21-2016 Ambulatory [facility] Facility:[facility] Start: 11-27-2012 Patient encounter status Jessica Clarke PA-C Work Phone: [facility] Procedures Date Procedure Procedure Detail Performing Clinician Start: 11-10-2024 Follow-up visit Follow-up CINDI GARCIA Start: 11-07-2024 ALL BASIC METABOLIC PANEL Sary Colin MD Work Phone: Start: 10-17-2024 Urine culture Tripp mane MD Work Phone: Start: 10-17-2024 URINE CULTURE - [facility] External Data Provider Start: 09-28-2024 Radiologic exam swal low function contrast study Jesi Keila Lewis MOTORCOACH OPERATOR-HEAD OF DESIGN Work Phone: Start: 09-28-2024 Basic metabolic pane l calcium total Sandie IBANEZ Work Phone: Start: 09-27-2024 Basic metabolic pane l calcium total Sandie IBANEZ Work Phone: Start: 09-27-2024 Radiologic exam ches t single view Anjelica Albarado Rubi MOTORCOACH OPERATOR-HEAD OF DESIGN Work Phone: Start: 09-25-2024 Assay of magnesium Maureen Espinal MD Work Phone: Start: 09-25-2024 Basic metabolic pane l calcium total Sandie IBANEZ Work Phone: Start: 09-24-2024 Radiologic exam swal low function contrast study Chip Zarate MOTORCOACH OPERATOR-HEAD OF DESIGN Work Phone: Start: 09-24-2024 Comprehensive metabo lic panel Jair Espinal MD Work Phone: Start: 09-23-2024 Ct head/brain w/o co ntrast material Ibeth Brody PA-C Work Phone: Start: 09-23-2024 Radiologic exam abdo men 1 view Jair Espinal MD Work Phone: Start: 09-23-2024 BEDSIDE GLUCOSE Xena Larios MD Work Phone: Start: 09-23-2024 End: 09-23-2024 SYNAPTIVE CRANIOTOMY EXCISION TUMOR Jair Espinal MD Work Phone: Start: 09-23-2024 Radiologic exam ches t single view Anjelica Venegas MOTORCOACH OPERATOR-HEAD OF DESIGN Work Phone: Start: 09-23-2024 Basic metabolic pane l calcium total Sandie IBANEZ Work Phone: Start: 09-23-2024 REPEATED IQRA Larios MD Work Phone: Start: 09-22-2024 Antibody screen Julio merchant MD Work Phone: Start: 09-22-2024 Antibody screen FRED BISHOP Comment on above: Performed By: #### T NIHS1 #### [facility] ([facility]) [address] [place] [address] VIR Start: 09-22-2024 Blood typing serologic abo Laura Gore MOTORCOACH OPERATOR-HEAD OF DESIGN Work Phone: Start: 09-22-2024 Electrolyte panel Miriam Church MD Work Phone: Start: 09-22-2024 REPEATED NAERey Gore MOTORCOACH OPERATOR-HEAD OF DESIGN Work Phone: Start: 09-22-2024 HC ECHO COMPLETE W CONTRAST Melo Gill PA-C Work Phone: Start: 09-22-2024 Electrolyte panel Miriam Church MD Work Phone: Start: 09-22-2024 Ecg routine ecg w/le ast 12 lds trcg only w/o i&r Anjelica Venegas MOTORCOACH OPERATOR-HEAD OF DESIGN Work Phone: Start: 09-22-2024 Basic metabolic pane l calcium total Sandie IBANEZ Work Phone: Start: 09-22-2024 Drug screen quantita tive vancomycin Anjelica Venegas MOTORCOACH OPERATOR-HEAD OF DESIGN Work Phone: Start: 09-21-2024 Electrolyte panel Miriam Church MD Work Phone: Start: 09-21-2024 Protein electrophore tic fractj&quantj serum Miriam Church MD Work Phone: Start: 09-21-2024 Drug screen quantita tive vancomycin Michelle Petrisor Avasilcai MOTORCOACH OPERATOR-HEAD OF DESIGN Work Phone: Start: 09-21-2024 Electrolyte panel Miriam Church MD Work Phone: Start: 09-21-2024 Basic metabolic pane l calcium total Sandie IBANEZ Work Phone: Start: 09-20-2024 Drug screen quantita tive vancomycin Michelle Petrisor Avasilcai MOTORCOACH OPERATOR-HEAD OF DESIGN Work Phone: Start: 09-20-2024 Electrolyte panel Miriam Church MD Work Phone: Start: 09-20-2024 Radiologic exam abdo men 1 view Steffanie Lozano MOTORCOACH OPERATOR-HEAD OF DESIGN Work Phone: Start: 09-20-2024 Ct abdomen & pelvis w/o contrast material Hiram Jones MD Work Phone: Start: 09-20-2024 Electrolyte panel Miriam Church MD Work Phone: Start: 09-20-2024 End: 09-20-2024 Culture bacterial blood aerobic w/id isolates Steffanie Lozano MOTORCOACH OPERATOR-HEAD OF DESIGN Work Phone: Start: 09-20-2024 Basic metabolic pane l calcium total Sandie IBANEZ Work Phone: Start: 09-20-2024 Mri brain brain stem w/o w/contrast material Chip Zarate MOTORCOACH OPERATOR-HEAD OF DESIGN Work Phone: Start: 09-19-2024 Electrolyte panel Miriam [...] comb ination ph pco2 po2 co2 hco3 Saucedo Rosmery DO Work Phone: Start: 09-19-2024 Urnls dip stick/tabl et rgnt auto w/o microscopy Saucedo Ali DO Work Phone: Start: 09-19-2024 ER EXTRA URINE Endrit Verena Ontiveros MD Work Phone: Start: 09-19-2024 TROP I, HIGH SENSITI VITY 1 HOUR Endriraf Ontiveros MD Work Phone: Start: 09-19-2024 Urinalysis Miriam joe MD Work Phone: Start: 09-19-2024 Ecg routine ecg w/le ast 12 lds trcg only w/o i&r Endriraf Ontiveros MD Work Phone: Start: 09-19-2024 End: 09-19-2024 Comprehensive metabolic panel Raviriraf Ontiveros MD Work Phone: Start: 09-19-2024 End: 09-19-2024 Culture bacterial blood aerobic w/id isolates Endriraf Ontiveros MD Work Phone: Start: 09-18-2024 ALL CBC WITH AUTO DIFF Sary Colin MD Work Phone: Start: 08-23-2024 BLOOD CULTURE 2 Generic External Data Provider Start: 08-23-2024 BLOOD CULTURE 1 Generic External Data Provider Start: 08-22-2024 URINE CULTURE - [facility] Ge neric External Data Provider Start: 08-22-2024 Urine culture Tripp mane MD Work Phone: Start: 06-30-2024 MM TOMOSYNTHESIS SCR EENING BI Fred Tellezvicky SWIMMING POOL MAINTENANCE Work Phone: Start: 06-30-2024 Mammography Fred Pratima rivera SWIMMING POOL MAINTENANCE Work Phone: Start: 04-27-2024 Arthrocentesis aspir &/inj major jt/bursa w/us Yahaira Vazquez PA Work Phone: Start: 02-25-2024 Radex shoulder compl ete minimum 2 views Eliazar Brooks DO Work Phone: Start: 02-10-2024 Arthroscopy of shoulder Eliazar Brooks Start: 01-23-2024 TBH UA (CLEAN/CATCH) MICROSCOPIC IF INDICATE Fred Basil SWIMMING POOL MAINTENANCE Work Phone: Start: 03-07-2022 Microscopic observat ion [...] Diagnostic endoscopi c examination on colon Services [facility] Work Phone: Start: 09-01-2021 SARS Antigen (LFIA) Ser vices [facility] Work Phone: Start: 07-28-2020 Imm. administration COVID19 [employer] Jazmin Neel Work Phone: Start: 07-28-2020 SARS-CoV-2 vaccine, 0.5ml [employer] Jazmin Shaikh Work Phone: Start: 09-17-2012 Mammography Shaikh Ilan gimenez MD Work Phone: Ectopic (disorder) Eliazar Brooks Entire carpal canal (body structure) Eliazar Brooks Ligation of fallopian tube J MAYCO MATTHEWS Plan of Treatment Date Care Activity Detail Author Start: 09-22-2027 Screening for malignant neoplasm of colon [facility] Start: 10-02-2026 DTaP,Tdap and Td Vaccines (2 - Td or Tdap) DTaP,Tdap and Td Vaccines (2 - Td or Tdap) [facility] Start: 10-02-2026 Urine microalbumin profile [facility] Start: 09-18-2026 Lipid 1996 panel - Serum or Plasma Lipid Screening [facility] Start: 09-18-2026 Lipid panel Lipid Screening [facility] Start: 09-18-2026 LIPID SCREEN LIPID SCREEN [facility] Start: 05-22-2026 Diabetes Screening Diabetes Screening [facility] Start: 11-13-2025 Adult BMI Screening Adult BMI Screening [facility] Start: 11-12-2025 Tobacco Screening Tobacco Screening [facility] Start: 11-10-2025 Adult BMI Screening Adult BMI Screening [facility] Start: 11-10-2025 Tobacco Screening Tobacco Screening [facility] Start: 11-08-2025 LIPID SCREEN LIPID SCREEN [facility] Start: 09-28-2025 Adult BMI Screening Adult BMI Screening [facility] Start: 09-23-2025 Tobacco Screening Tobacco Screening [facility] Start: 09-16-2025 Tobacco Screening Tobacco Screening [facility] Start: 09-01-2025 Adult BMI Screening Adult BMI Screening [facility] Start: 06-30-2025 Screening for malignant neoplasm of breast Mammogram [facility] Start: 05-18-2025 Medicare Annual Wellness (AWV) Medicare Annual Wellness (AWV) [facility] Start: 03-07-2025 Screening for malignant neoplasm of cervix [facility] Start: 01-18-2025 Influenza vaccination Influenza Vaccine [facility] Start: 12-14-2024 End: 12-14-2024 Patient encounter procedure 12/14/2024 11:00 AM EDT Office Visit [facility] [place] [address] Laura Gunn MD [facility] [place] [address] [facility] Start: 11-24-2024 End: 11-24-2024 Patient encounter procedure 11/24/2024 1:00 PM EDT Appointment [facility] - Radiation Oncology [address] [place] [address] [facility] - Radiation Oncology Start: 11-13-2024 End: 11-13-2024 Patient encounter procedure [facility] - Radiation Oncology Start: 11-13-2024 End: 11-13-2024 Patient encounter procedure 11/13/2024 10:15 AM EDT Appointment [facility] - MRI Imaging [address] [place] [phone] Richie Sandoval MD [address] [facility] [place] [address] [facility] Start: 11-12-2024 End: 11-12-2025 MR Brain WO and W contrast IV MR brain with and without contrast Imaging STAT Glioblastoma ([facility]-HCC) Expected: 11/12/2024, Expires: 11/12/2025 [facility] Work Phone: Comment on above: Expected: 11/12/2024, Expires: Start: 11-12-2024 End: 11-12-2024 Patient encounter procedure 11/12/2024 11:00 AM EDT Office Visit [facility] Al[facility] - Medical Oncology [address] [place] [phone] Guillermo Mendoza MD [address] [facility] [address] [place] [id number] Meera Alves [facility] - Medical Oncology Start: 11-10-2024 End: 11-10-2024 ambulatory [facility] Start: 11-10-2024 End: 11-10-2024 Patient encounter procedure 11/10/2024 1:10 PM EDT Office Visit [facility] [address] [place] [address] Jair Espinal MD [address] [address] [facility] Start: 10-17-2024 Bacteria identified in Urine by Culture Urine Culture [facility] Start: 10-17-2024 Urine culture [facility] Start: 10-02-2024 End: 09-28-2025 Void Trial [facility] Work Phone: Start: 09-30-2024 End: 09-30-2024 Patient encounter procedure 09/30/2024 8:40 AM EDT Office Visit [facility] [address] [place] [phone] Fred Gracia NP [address] [place] [phone] [facility] Start: 09-18-2024 DIABETES SCREEN DIABETES SCREEN [facility] Start: 09-18-2024 Diabetes Screening Diabetes Screening [facility] Start: 09-07-2024 End: 09-07-2024 Patient encounter procedure 09/07/2024 8:00 AM EDT Office Visit [facility] [address] [place] [phone] Nasra Horta, SWIMMING POOL MAINTENANCE [address], [address] [address] [facility] Start: 08-31-2024 End: 08-31-2024 Patient encounter procedure 08/31/2024 10:30 AM EDT Office Visit [facility] [address] [place] [phone] Fred Gracia NP [address] [place] [phone] [facility] Start: 08-22-2024 Urine culture [facility] Start: 08-22-2024 Bacteria identified in Urine by Culture Urine Culture [facility] Start: 08-18-2024 End: 08-18-2024 Patient encounter procedure [facility] Comment on above: Morbid (severe) obesity due to excess ca lories (CMS/HCC) (Primary Dx); Generalized anxiety disorder with panic attacks (CMS/HCC); Major depressive disorder, recurrent, moderate (CMS/HCC) Start: 07-13-2024 End: 07-13-2024 Patient encounter procedure 07/13/2024 9:40 AM EST Office Visit [facility] [address] [phone] Nasra Horta, SWIMMING POOL MAINTENANCE [address], [address] [address] [facility] Start: 07-07-2024 End: 07-07-2024 Patient encounter procedure 07/07/2024 10:00 AM EST Office Visit [facility] [address] [place] [phone] Fred Gracia NP [address] [place] [phone] Generalized anxiety disorder with panic attacks (CMS/HCC) (Primary Dx); Multiple sclerosis (CMS/HCC); Major depressive disorder, recurrent, moderate (CMS/HCC); Morbid (severe) obesity due to excess calories (CMS/HCC); Body mass index (BMI) 45.0-49.9, adult (CMS/HCC) [facility] Comment on above: Generalized anxiety disorder with panic attacks (CMS/HCC) (Primary Dx); Multiple sclerosis (CMS/HCC); Major depressive disorder, recurrent, moderate (CMS/HCC); Morbid (severe) obesity due to excess calories (CMS/HCC); Body mass index (BMI) 45.0-49.9, adult (CMS/HCC) Start: 07-01-2024 End: 07-01-2024 Patient encounter procedure 07/01/2024 10:00 AM EST Office Visit [facility] [address] [place] [address] Fred Gracia NP [address] [place] [address] [facility] Start: 06-25-2024 End: 06-25-2024 Patient encounter procedure 06/25/2024 8:40 AM EST Office Visit [facility] [address] [place] [address] Fred Gracia NP [address] [place] [address] [facility] Start: 06-17-2024 End: 06-17-2024 Patient encounter procedure 06/17/2024 9:30 AM EST [facility] [address] [place] [address] Sherrie Boone NP [address] [place] [address] Arrived [facility] Comment on above: Arrived Start: 06-08-2024 End: 06-08-2024 Patient encounter procedure 06/08/2024 9:45 AM EST Office Visit [facility] [address] [place] [address] Yahaira Vazquez PA [address] [place] [address] [facility] Start: 05-18-2024 End: 07-17-2025 MG Breast - bilateral Screening Bilateral screening mammogram Imaging Routine Encounter for screening mammogram for malignant neoplasm of breast Expected: 05/18/2024 (Approximate), Expires: 07/17/2025 [facility] Work Phone: Comment on above: Expected: 05/18/2024 (Approximate), Expi res: 07/17/2025 Start: 05-18-2024 End: 05-18-2024 Patient encounter procedure [facility] Comment on above: LORENZO (obstructive sleep apnea) [...] [facility] [address] [facility] [address] [place] [address] Nasra Horta, SWIMMING POOL MAINTENANCE [address], [facility] [address] [place] [address] [facility] Start: 05-05-2024 End: 05-05-2024 Patient encounter procedure 05/05/2024 9:40 AM EST Office Visit [facility] [address] [place] [address] Fred Gracia, KIRK [address] [place] [address] [facility] Start: 04-30-2024 Medicare Annual Wellness (AWV) Medicare Annual Wellness (AWV) [facility] Start: 04-29-2024 End: 04-29-2024 Patient encounter procedure 04/29/2024 9:40 AM EST Office Visit [facility] [address] [place] [address] Nasra Horta, SWIMMING POOL MAINTENANCE [address], [facility] [address] [place] [phone] [facility] Start: 04-27-2024 End: 04-27-2024 Patient encounter procedure [facility] Start: 04-10-2024 End: 04-10-2024 ambulatory 04/10/2024 8:30 AM EST Treatment [facility] [address] [facility] [address] [place] [address] Inderjit Pelletier, PHOTOGRAPHER MOTION PICTURE [facility] Start: 04-07-2024 End: 04-07-2024 ambulatory 04/07/2024 9:00 AM EST Treatment [facility] [address] [facility] [address] [place] [address] Aria Kumar, PT [facility] Start: 04-02-2024 End: 04-02-2024 ambulatory 04/02/2024 8:30 AM EST Treatment [facility] [address] [facility] [address] [place] [address] Aria Kumar, PT [facility] Start: 03-17-2024 End: 03-17-2024 ambulatory 03/17/2024 9:00 AM EDT Treatment [facility] [address] [facility] [address] [place] [address] Aria Kumar, PT [facility] Start: 03-13-2024 End: 03-13-2024 ambulatory [facility] Comment on above: Arrived Start: 03-10-2024 End: 03-10-2024 ambulatory 03/10/2024 9:30 AM EDT Treatment [facility] [address] [place] [address] Keli Major, PHOTOGRAPHER MOTION PICTURE [facility] Start: 03-06-2024 End: 03-06-2024 ambulatory 03/06/2024 8:30 AM EDT Treatment [facility] [address] [place] [address] Inderjit Pelletier, PHOTOGRAPHER MOTION PICTURE [facility] Start: 03-05-2024 End: 03-05-2024 [...] NB ORTHO [address] [place] [place] [phone] Eliazar Brooks, DO [address] [facility] [place] [address] [facility] Start: 02-25-2024 End: 02-25-2024 Patient encounter procedure 02/25/2024 8:15 AM EDT Office Visit [facility] [address] [place] [phone] Eliazar Brooks, DO [address] [place] [address] [facility] Start: 02-10-2024 End: 02-10-2024 [...] NEUR [address] [place] [address] [facility] Start: 01-19-2024 Covid-19 Vaccine ( season) Covid-19 Vaccine ( season) [facility] Start: 01-19-2024 Influenza vaccination Influ[facility] Vacc[facility] Start: 12-10-2023 End: 12-10-2023 Patient encounter procedure 12/10/2023 10:30 AM EDT Office Visit [facility] [address] [address] Jessica Clarke PA-C [address] [place] [address] follow up [facility] Comment on above: follow up Start: 11-27-2023 End: 02-26-2024 25-hydroxyvitamin D3 [Mass/volume] in Serum or Plasma VITAMIN D 25 HYDROXY Lab Routine Vitamin D deficiency Expected: 11/27/2023, Expires: 02/26/2024 [facility] Comment on above: Expected: 11/27/2023, Expires: Start: 11-27-2023 End: 02-26-2024 CBC W Auto Differential panel - Blood COMPLETE BLOOD COUNT AND DIFFERENTIAL Lab Routine Multiple sclerosis (HCC) Expected: 11/27/2023, Expires: 02/26/2024 [facility] Work Phone: Comment on above: Expected: 11/27/2023, Expires: Start: 11-27-2023 End: 02-26-2024 Comprehensive metabolic 2000 panel - Serum or Plasma COMPREHENSIVE METABOLIC PANEL Lab Routine Multiple sclerosis ([facility]) Expected: 11/27/2023, Expires: 02/26/2024 [facility] Comment on above: Expected: 11/27/2023, Expires: Start: 11-27-2023 End: 02-26-2024 IgG [Mass/volume] in Serum or Plasma IMMUNOGLOBULIN G Lab Routine Multiple sclerosis ([facility]) Expected: 11/27/2023, Expires: 02/26/2024 [facility] Comment on above: Expected: 11/27/2023, Expires: Start: 11-27-2023 End: 02-26-2024 IgM [Mass/volume] in Serum or Plasma IMMUNOGLOBULIN M Lab Routine Multiple sclerosis ([facility]) Expected: 11/27/2023, Expires: 02/26/2024 [facility] Comment on above: Expected: 11/27/2023, Expires: Start: 11-27-2023 End: 11-27-2023 Patient encounter procedure 11/27/2023 12:00 PM EDT Appointment Radiology [address] [place] [address] Cervical Spine MRI Radiology Comment on above: Cervical Spine MRI Start: 11-09-2023 DIABETES SCREEN DIABETES SCREEN [facility] Start: 09-05-2023 End: 09-05-2023 Patient encounter procedure 09/05/2023 8:40 AM EDT Office Visit [facility] [address] [place] [address] Fred Gracia NP [address] [place] [address] [facility] Start: 07-25-2023 End: 06-26-2024 Pulmonary function testing Pulmonary function testing Imaging Routine COPD with exacerbation ([facility]) Expected: 07/25/2023, Expires: 06/26/2024 [facility] Work Phone: Comment on above: Expected: 07/25/2023, Expires: Start: 06-26-2023 End: 06-26-2024 XR Chest 2 Views XR chest 2 views Imaging Routine COPD with exacerbation (CMS/HCC) Expected: 06/26/2023, Expires: 06/26/2024 [facility] Comment on above: Expected: 06/26/2023, Expires: Start: 06-26-2023 End: 06-26-2023 Patient encounter procedure 06/26/2023 11:30 AM EST Office Visit [facility] [address] [place] [address] Shaikh Lunsford MD [address] [place] [phone] Arrived [facility] Comment on above: Arrived Start: 05-20-2023 Behavioral Health Screening Behavioral Health Screening [facility] Start: 05-20-2023 Depression Assessment Depression Assessment [facility] Start: 01-18-2023 Covid-19 Vaccine ( season) Covid-19 Vaccine ( season) [facility] Start: 01-18-2023 Influenza vaccination [facility] Start: 09-15-2022 Adult depression screening assessment DEPRESSION SCREENING [facility] Start: 08-30-2022 End: 10-30-2022 CBC W Auto Differential panel - Blood CBC + DIFF Lab Routine Multiple sclerosis, relapsing-remitting (HCC) Expected: 08/30/2022, Expires: 10/30/2022 [facility] Work Phone: Comment on above: Expected: 08/30/2022, Expires: Start: 08-30-2022 End: 10-30-2022 Comprehensive metabolic 2000 panel - Serum or Plasma COMP METABOLIC PANEL Lab Routine Multiple sclerosis, relapsing-remitting (HCC) Expected: 08/30/2022, Expires: 10/30/2022 [facility] Work Phone: Comment on above: Expected: 08/30/2022, Expires: 3 Start: 08-30-2022 End: 10-30-2022 IgG [Mass/volume] in Serum or Plasma IGG Lab Routine Multiple sclerosis, relapsing-remitting (HCC) Expected: 08/30/2022, Expires: 10/30/2022 [facility] Work Phone: Comment on above: Expected: 08/30/2022, Expires: 3 Start: 08-30-2022 End: 10-30-2022 IgM [Mass/volume] in Serum or Plasma IGM Lab Routine Multiple sclerosis, relapsing-remitting (HCC) Expected: 08/30/2022, Expires: 10/30/2022 [facility] Work Phone: Comment on above: Expected: 08/30/2022, Expires: 3 Start: 05-20-2022 DEPRESSION ASSESSMENT DEPRESSION ASSESSMENT [facility] Start: 03-22-2022 End: 05-22-2022 CBC W Auto Differential panel - Blood CBC + DIFF Lab Routine Multiple sclerosis, relapsing-remitting (HCC) Expected: 03/22/2022, Expires: 05/22/2022 [facility] Work Phone: Comment on above: Expected: 03/22/2022, Expires: 3 Start: 03-22-2022 End: 05-22-2022 CD19 ABSOLUTE COUNT CD19 ABSOLUTE COUNT Lab Routine Multiple [facility] Expected: 03/22/2022, Expires: 05/22/2022 [facility] Work Phone: Comment on above: Expected: 03/22/2022, Expires: Start: 03-22-2022 End: 05-22-2022 Comprehensive metabolic 2000 panel - Serum or Plasma COMP METABOLIC PANEL Lab Routine Multiple sclerosis, relapsing-remitting (HCC) Expected: 03/22/2022, Expires: 05/22/2022 [facility] Work Phone: Comment on above: Expected: 03/22/2022, Expires: 3 Start: 03-22-2022 End: 05-22-2022 IgG [Mass/volume] in Serum or Plasma IGG Lab Routine Multiple sclerosis, relapsing-remitting (HCC) Expected: 03/22/2022, Expires: 05/22/2022 [facility] Work Phone: Comment on above: Expected: 03/22/2022, Expires: 3 Start: 03-22-2022 End: 05-22-2022 IgM [Mass/volume] in Serum or Plasma IGM Lab Routine Multiple sclerosis, relapsing-remitting (HCC) Expected: 03/22/2022, Expires: 05/22/2022 [facility] Work Phone: Comment on above: Expected: 03/22/2022, Expires: 3 Start: 01-18-2022 Influenza vaccination [facility] Start: 11-14-2021 End: 01-14-2022 JCV ANTIBODY & INDEX WITH REFLEX [facility] Work Phone: Comment on above: Expected: 11/14/2021, Expires: 2 Start: 09-18-2021 End: 11-18-2021 CD19 ABSOLUTE COUNT [facility] Work Phone: Comment on above: Expected: 09/18/2021, Expires: 2 Start: 09-16-2021 COVID-19 VACCINE (3 - Booster for Yeni series) COVID-19 VACCINE (3 - Booster for Yeni series) [facility] Start: 09-15-2021 End: 11-15-2021 CBC W Auto Differential panel - Blood CBC + DIFF Lab Routine Multiple sclerosis, relapsing-remitting (HCC) Expected: 09/15/2021, Expires: 11/15/2021 [facility] Work Phone: Comment on above: Expected: 09/15/2021, Expires: 2 Start: 09-15-2021 End: 11-15-2021 Comprehensive metabolic 2000 panel - Serum or Plasma COMP METABOLIC PANEL Lab Routine Multiple sclerosis, relapsing-remitting (HCC) Expected: 09/15/2021, Expires: 11/15/2021 [facility] Work Phone: Comment on above: Expected: 09/15/2021, Expires: 2 Start: 09-15-2021 End: 11-15-2021 IMMUNOGLOBULINS KESHAWN IMMUNOGLOBULINS KESHAWN Lab Routine Multiple sclerosis, relapsing-remitting (HCC) Expected: 09/15/2021, Expires: 11/15/2021 [facility] Work Phone: Comment on above: Expected: 09/15/2021, Expires: 2 Start: 09-15-2021 End: 11-15-2021 LIPID PANEL BASIC LIPID PANEL BASIC Lab Routine Multiple sclerosis, relapsing-remitting (HCC) Expected: 09/15/2021, Expires: 11/15/2021 [facility] Work Phone: Comment on above: Expected: 09/15/2021, Expires: 2 Start: 07-13-2021 COVID-19 VACCINE (3 - Booster for Yeni series) COVID-19 VACCINE (3 - Booster for Yeni series) [facility] Start: 05-20-2021 DEPRESSION ASSESSMENT DEPRESSION ASSESSMENT [facility] Start: 2018 Administration of varicella zoster vaccine Zoster (Shingles) Vaccine (1 of 2) Beta Dash Cureeo [facility] Start: 2018 Influenza vaccination LUNG CANCER SCREENING [facility] Start: 2018 Pneumococcal Vaccine: 50+ (2 of 2 - PCV) Pneumococcal Vaccine: 50+ (2 of 2 - PCV) [facility] Start: 2018 Screening for malignant neoplasm of lung Lung Cancer Screening [facility] Start: 2018 SHINGRIX VACCINE (1 of 2) SHINGRIX VACCINE (1 of 2) [facility] Start: 09-17-2013 Screening for malignant neoplasm of breast Mammogram [facility] Start: 2013 COLOGUARD (FIT-DNA) COLOGUARD (FIT-DNA) [facility] Start: 2013 Colonoscopy COLONOSCOPY [facility] Start: 2013 COLORECTAL CANCER SCREENING COLORECTAL CANCER SCREENING [facility] Start: [address] COLONOGRAPHY [facility] Start: 2013 FECAL OCCULT BLOOD FECAL OCCULT BLOOD [facility] Start: 2013 Screening for malignant neoplasm of colon [facility] Start: 2013 SIGMOIDOSCOPY SIGMOIDOSCOPY [facility] Start: 2008 Mammography [facility] Start: 2008 Screening for malignant neoplasm of breast Mammogram Screening [facility] Start: 1998 HPV TESTING HPV TESTING [facility] Start: 1998 Screening for malignant neoplasm of cervix [facility] Start: 1989 PAP TESTING PAP TESTING [facility] Start: 1989 Screening for malignant neoplasm of cervix [facility] Start: 1987 Administration of varicella zoster vaccine Zoster (Shingles) Vaccine (1 of 2) [facility] Start: 1987 Hepatitis B Vaccine (1 of 3 - 19+ 3-dose series) Hepatitis B Vaccine (1 of 3 - 19+ 3-dose series) [facility] Start: 1986 Adult BMI Follow Up Plan Adult BMI Follow Up Plan [facility] Start: 1986 Anxiety Screening Anxiety Screening [facility] Start: 1986 Depression Screening Depression Screening [facility] Start: 1986 HIV SCREENING HIV SCREENING [facility] Start: 1986 HIV screening HIV Screening [facility] Start: 1980 Depression Screening Depression Screening [facility] Start: 1968 HEPATITIS B (1 of 3 - 3-dose series) HEPATITIS B (1 of 3 - 3-dose series) [facility] Start: 1968 Hepatitis B Vaccine (1 of 3 - 3-dose series) Hepatitis B Vaccine (1 of 3 - 3-dose series) [facility] Start: 1968 Screening for malignant neoplasm of colon [facility] Start: 1968 Tobacco Counseling Tobacco Counseling [facility] Basic metabolic 2000 panel - Serum or Plasma [facility] BLOOD CULTURE 1 BLOOD CULTURE 1 Lab Routine 08/23/2024 5:46 AM EDT [facility] BLOOD CULTURE 2 BLOOD CULTURE 2 Lab Routine 08/23/2024 5:52 AM EDT [facility] CBC W Auto Different ial panel - Blood [facility] End: 11-19-2033 CBC W Auto Differential panel - Blood CBC auto differential Lab Routine GBM (glioblastoma multiforme) ([facility]) weekly for 7 Occurrences starting 11/19/2024 until 11/19/2033 [employer] Work Phone: Comment on above: weekly for 7 Occurrences starting 2024 until 11/19/2033 End: 11-19-2025 Comprehensive metabolic 2000 panel - Serum or Plasma Comprehensive metabolic panel Lab Routine GBM (glioblastoma multiforme) ([facility]) weekly for 7 Occurrences starting 11/19/2024 until 11/19/2025 [email or web address] Comment on above: weekly for 7 Occurrences starting 2024 until 11/19/2025 End: 09-05-2024 EMG(NEURO/NI) EMG(NEURO/NI) EMG Routine Left arm weakness 1 Occurrences starting 09/06/2023 until 09/05/2024 [facility] Work Phone: Comment on above: 1 Occurrences starting 09/06/2023 until 09/05/2024 IMMUNOGLOBULINS KESHAWN IMMUNOGLOBUL INS KESHAWN Lab Routine Multiple sclerosis, relapsing-remitting (HCC) 09/18/2021 8:36 AM EDT [facility] Work Phone: Ionized calcium [employer] Work Phone: Magnesium [Mass/volu me] in Serum or Plasma [email or web address] End: 11-16-2023 ALIYA SCREENING ALIYA SCREENING Radiology Routine Encounter for screening mammogram for breast cancer 1 Occurrences starting 10/17/2022 until 11/16/2023 [facility] Work Phone: Comment on above: 1 Occurrences starting 10/17/2022 until 11/16/2023 End: 08-14-2024 MR Brain WO and W contrast IV MRI BRAIN WO/W IVCON Radiology Routine Multiple sclerosis (HCC) 1 Occurrences starting 07/16/2023 until 08/14/2024 [facility] Work Phone: Comment on above: 1 Occurrences starting 07/16/2023 until 08/14/2024 End: 10-05-2024 MR Cervical spine WO contrast MRI CERVICAL SPINE WO IVCON Radiology Routine Left arm weakness 1 Occurrences starting 09/06/2023 until 10/05/2024 [facility] Work Phone: Comment on above: 1 Occurrences starting 09/06/2023 until 10/05/2024 End: 10-15-2022 Mri brain brain stem w/o w/contrast material MRI BRAIN WO/W IVCON Radiology Routine Multiple sclerosis, relapsing-remitting (HCC) 1 Occurrences starting 09/15/2021 until 10/15/2022 [facility] Work Phone: Comment on above: 1 Occurrences starting 09/15/2021 until 10/15/2022 End: 12-14-2022 Mri brain brain stem w/o w/contrast material MRI BRAIN WO/W IVCON Radiology Routine Multiple sclerosis, relapsing-remitting (HCC) 1 Occurrences starting 11/14/2021 until 12/14/2022 [facility] Work Phone: Comment on above: 1 Occurrences starting 11/14/2021 until 12/14/2022 End: 09-29-2023 Mri brain brain stem w/o w/contrast material MRI BRAIN WO/W IVCON Radiology Routine Multiple sclerosis, relapsing-remitting (HCC) 1 Occurrences starting 08/30/2022 until 09/29/2023 [facility] Work Phone: Comment on above: 1 Occurrences starting 08/30/2022 until 09/29/2023 End: 09-29-2023 Mri spinal canal cervical w/o & w/contr matrl MRI CERVICAL SPINE WO/W IVCON Radiology Routine Multiple sclerosis, relapsing-remitting (HCC) 1 Occurrences starting 08/30/2022 until 09/29/2023 [facility] Work Phone: Comment on above: 1 Occurrences starting 08/30/2022 until 09/29/2023 OT PLAN OF CARE CERTIFICATION OT PLAN OF CARE CERTIFICATION Procedures Routine Multiple sclerosis, relapsing-remitting (HCC) Ordered: 01/16/2022 [facility] Work Phone: Comment on above: Ordered: 01/16/2022 Oxygen Therapy - Maintain SpO2: 90%; *SINGLE END SEWER Guidelines for O2: Yes; Document: \[email or web address]\epi c\EPIC_Reference\Orders\ Respiratory Care Guidelines\CPG Oxygen 2022.pdf [employer] Work Phone: Patient Education Hemorrhoids (D C) Diverticulosis (DC) Colon Polypectomy (DC) [facility] Work Phone: Phosphate [Mass/volu me] in Serum or Plasma [employer] [facility] Platelets [#/volume] in Blood [facility] Work Phone: Renal function 2000 panel - Serum or Plasma [facility] End: 12-15-2022 Screening mammography bi 2-view breast inc cad ALIYA SCREENING Radiology Routine Encounter for screening mammogram for breast cancer 1 Occurrences starting 11/15/2021 until 12/15/2022 [facility] Work Phone: Comment on above: 1 Occurrences starting 11/15/2021 until 12/15/2022 Surgical Pathology [facility] Work Phone: [place] [facility] [place] [facility] Lab Routine 08/22/2024 10:45 PM EDT [facility] [place]INE [place]ULTURE [place] [facility] [place] [facility] [place] Routine 10/17/2024 9:45 AM EDT [facility] US Kidney - bilateral [facility] End: 10-05-2024 XR CERV OTHER 4V AP/LAT/FLX/EXT XR CERV OTHER 4V AP/LAT/FLX/EXT Radiology Routine Left arm weakness 1 Occurrences starting 09/06/2023 until 10/05/2024 [facility] Work Phone: Comment on above: 1 Occurrences starting 09/06/2023 until 10/05/2024 [facility] Immunizations Immunization Date Immunization Notes Care Provider Fa cili 03-05-2024 influenza, injectabl e, madin diane canine kidney, preservative free Julio Fernandez MD Work Phone: [facility] 03-05-2024 Influenza, injectabl e, Madin Diane Canine Kidney, preservative free, quadrivalent Fred Gracia [employer] Work Phone: [facility] 03-05-2024 unknown vaccine or immune globulin Julio Fernandez MD Work Phone: [facility] 03-05-2024 influenza virus vaccine, unspecified formulation Adonay Castillo [employer] Work Phone: [facility] 05-02-2023 influenza, intraderm al, quadrivalent, preservative free, injectable Shaikh Jonn BENITEZ Work Phone: [facility] 05-02-2023 influenza virus vaccine, unspecified formulation Sarthak Escobar MD, PhD Work Phone: [facility] 04-30-2023 influenza, seasonal, injectable Shaikh Jonn BENITEZ Work Phone: [facility] 05-29-2022 unknown vaccine or immune globulin Julio Fernandez MD Work Phone: [facility] 03-07-2022 influenza, high dose seasonal, preservative-free Shaikh Jonn BENITEZ Work Phone: [facility] 03-07-2022 influenza virus vaccine, unspecified formulation Jessica Clarke PA-C Work Phone: [facility] 05-18-2021 COVID-19 mRNA-1273 (Moderna) [facility] Work Phone: [facility] 05-18-2021 unknown vaccine or immune globulin Julio Fernandez MD Work Phone: [facility] 07-28-2020 unknown vaccine or immune globulin Julio Fernandez MD Work Phone: [facility] 07-28-2020 Ilia and Ilia COVID 19 Vaccine Jaleesa Lara [facility] Comment on above: Note: Patient tolera jonah well. No signs or symptoms of adverse reactions. Patient waited a minimum of 15 minutes. 04-08-2020 influenza, injectabl e, quadrivalent, preservative free Jessica Young PA-C Work Phone: [facility] 03-20-2019 influenza, injectabl e, quadrivalent, preservative free Jessica Young PA-C Work Phone: [facility] 06-05-2018 influenza, injectabl e, quadrivalent, preservative free Jessica Young PA-C Work Phone: [facility] 02-27-2017 influenza, injectabl e, quadrivalent, preservative free Jessica Young PA-C Work Phone: [facility] 10-02-2016 pneumococcal polysaccharide vaccine, 23 valent Jessica Young PA-C Work Phone: [facility] 10-02-2016 tetanus toxoid, redu maury diphtheria toxoid, and acellular pertussis vaccine, adsorbed Jessica Young PA-C Work Phone: [facility] 10-02-2016 unknown vaccine or immune globulin Julio Fernandez MD Work Phone: [facility] 04-03-2016 influenza, injectabl e, quadrivalent, preservative free Jessica Young PA-C Work Phone: [facility] 03-19-2015 influenza, high dose seasonal, preservative-free Jessica Young PA-C Work Phone: [facility] 03-19-2015 influenza, injectabl e, quadrivalent, preservative free Eliazar Brooks DO Work Phone: [facility] 04-27-2014 influenza, high dose seasonal, preservative-free Jessica Young PA-C Work Phone: [facility] 04-27-2014 influenza, injectabl e, quadrivalent, preservative free Eliazar Brooks DO Work Phone: [facility] Payers Date Payer Category Payer Self-pay [id number] 2024 Medicare [id number] 2023 Medicare (Managed Care) 1.2. [id number] 2023 Medicare [id number] [id number]. [id number] 2022 Medicare [id number] 2020 Medicaid [facility] MEDICAID [facility] MEDICAID [id number] 2020-Present [phone] [address] [place] [address] Medicaid [id number]. [id number] 2020 Medicaid [id number]. 1.13.159.2. [id number] 1968 Unknown [id number] 2.16.840.1.140751.3.579.2. 593 1968 Unknown [id number] 2.16.840.1.273351.3.579.2. 593 1968 Unknown [id number] 2.16.840.1.499143.3.579.2. 593 1968 Unknown [id number] 2.16.840.1.057109.3.579.2. 593 1968 Unknown [id number] 2.16.840.1.482600.3.579.2. 593 1968 Unknown [id number] 2.16.840.1.658960.3.579.2. 727 1968 Unknown [id number] 2.16.840.1.485435.3.579.2. 1259 1968 Unknown [id number] 2.16.840.1.397314.3.579.2. 1259 1968 Unknown [id number] 2.16.840.1.656845.3.579.2. 1258 1968 Unknown [id number] 2.16.840.1.990608.3.579.2. 1258 1968 Unknown [id number] 2.16.840.1.457184.3.579.2. 1258 1968 Unknown [id number] 2.16.840.1.713935.3.579.2. 1258 1968 Unknown [id number] 2.16.840.1.296297.3.579.2. 1258 1968 Unknown [id number] 2.16.840.1.393752.3.579.2. 1258 1968 Unknown [id number] 2.16.840.1.428215.3.579.2. 1258 1968 Unknown [id number] 2.16.840.1.526082.3.579.2. 1258 1968 Unknown [id number] 2.16.840.1.465461.3.579.2. 1258 1968 Unknown [id number] 2.16.840.1.529890.3.579.2. 1258 1968 Unknown [id number] 2.16.840.1.173740.3.579.2. 1258 1968 Unknown [id number] 2.16.840.1.507898.3.579.2. 1258 1968 Unknown [id number] 2.16.840.1.309021.3.579.2. 1258 1968 Unknown [id number] 2.16.840.1.629804.3.579.2. 1258 1968 Unknown [id number] 2.16.840.1.729473.3.579.2. 1258 1968 Unknown [id number] 2.16.840.1.292498.3.579.2. 1258 1968 Unknown [id number] 2.16.840.1.905226.3.579.2. 1259 1968 Unknown [id number] 2.16.840.1.146796.3.579.2. 9 1968 Unknown [id number] 2.16.840.1.283532.3.579.2. 9 1968 Unknown [id number] 2.16.840.1.898475.3.579.2. 1258 1968 Unknown [id number] 2.16.840.1.661206.3.579.2. 1258 1968 Unknown [id number] 2.16.840.1.672981.3.579.2. 1258 1968 Unknown [id number] 2.16.840.1.292784.3.579.2. 1258 1968 Unknown [id number] 2.16.840.1.845871.3.579.2. 1285 1968 Unknown [id number] 2.16.840.1.164111.3.579.2. 1285 1968 Unknown [id number] 2.16.840.1.232242.3.579.2. 1285 1968 Unknown [id number] 2.16.840.1.502372.3.579.2. 732 1968 Unknown [id number] 2.16.840.1.467107.3.579.2. 1285 1968 Unknown [id number] 2.16.840.1.122712.3.579.2. 1285 1968 Unknown [id number] 2.16.840.1.589752.3.579.2. 1285 1968 Unknown [id number] 2.16.840.1.667968.3.579.2. 1285 1968 Unknown [id number] 2.16.840.1.941620.3.579.2. 1285 1968 Unknown [id number] 2.16.840.1.161818.3.579.2. 1286 1968 Unknown [id number] 2.16.840.1.094295.3.579.2. 1285 1968 Unknown [id number] 2.16.840.1.056717.3.579.2. 1285 1968 Unknown [id number] 2.16.840.1.632928.3.579.2. 1285 1968 Unknown [id number] 2.16.840.1.976523.3.579.2. 1285 1968 Unknown [id number] 2.16.840.1.269007.3.579.2. 1285 1968 Unknown [id number] 2.16.840.1.472016.3.579.2. 7 1968 Unknown [id number] 2.16.840.1.247325.3.579.2. 1968 Unknown [id number] 2.16.840.1.388042.3.579.2. 1968 Unknown [id number] 2.16.840.1.012828.3.579.2. 1968 Unknown [id number] 2.16.840.1.311664.3.579.2. 1968 Unknown [id number] 2.16.840.1.016960.3.579.2. 1959 Private Health Insurance [id number] 1959 Unknown [id number] Medicare [id number] Self-pay [id number] 2.16.840.1.513730.3.140.1. 41729.5.4 Unknown [id number] Unknown [id number] 2.16.840.1.554527.3.579.2. 531 Unknown [id number] 2.16.840.1.262861.3.579.2. 531 Social History Date Type Detail Facility Tobacco smoking status Unknown if ever [facility] Work Phone: Start: 1970 Sex Assigned At Female F [facility] Start: 09-05-2021 End: 11-24-2024 Tobacco smoking status NHIS Ex-smoker (finding) [facility] Start: 12-13-1996 End: 12-13-2016 History of tobacco use Current smoker [facility] Start: 12-13-1996 End: 12-13-2016 History of tobacco use Cigarette Smoker [facility] Start: 12-06-2017 End: 11-13-2024 Cigarettes smoked current (pack per day) - Reported 1 [facility] Start: 12-06-2017 End: 08-28-2024 Tobacco use and exposure Smokeless tobacco non-user [facility] Start: 11-01-2020 End: 07-10-2023 Alcohol intake Current drinker of alcohol (finding) [facility] Start: 08-02-2020 History SDOH Alcohol Frequency 2 [facility] Start: 08-02-2020 History SDOH Alcohol Std Drinks 3 [facility] Start: 08-08-2012 History SDOH Alcohol Comment rare [facility] Start: 08-02-2020 History SDOH Social Connections Get Together 1 [facility] Start: 08-02-2020 History SDOH Physica l Activity DPW 0 [facility] Start: 08-02-2020 History SDOH Stress 5 [facility] Start: 08-02-2020 History SDOH Financial 4 [facility] Start: 08-02-2020 Education 8 [facility] Start: 08-08-2012 End: 03-22-2022 Tobacco Comment plans to try to quit at some point but not ready. [facility] Start: 09-08-2021 End: 03-22-2022 Exposure to SARS-CoV-2 (event) Not sure [facility] Start: 08-02-2020 End: 11-13-2024 Sex Assigned At [facility] Do you belong to any clubs or organizations such as buddhist groups, unions, fraternal or athletic groups, or school groups? No [facility] Are you now , , , , never or living with a partner? [facility] How often to you hav e a drink containing alcohol? Monthly or less [facility] How many standard dr inks containing alcohol do you have on a typical day? 5 or 6 [facility] How often do you hav e 6 or more drinks on 1 occasion? Less than monthly [facility] How hard is it for y ou to pay for the very basics like food, housing, medical care, and heating Not very hard [facility] Start: 06-04-2023 Adult Depression Screening Assessment 5 [facility] Do you feel stress - tense, restless, nervous, or anxious, or unable to sleep at night because your mind is troubled all the time - these days [OSQ] Very much [facility] (I/We) worried wheth er (my/our) food would run out before (I/we) got money to buy more. Sometimes true [facility] Start: 08-02-2020 Gender identity Identifies as female gender (finding) [facility] Start: 08-02-2020 Sexual orientation Heterosexual (fin ever) [facility] Start: 06-05-2023 End: 08-31-2024 Alcohol [...] use Passive smoker [facility] Comment on above: States smokes 1 PPD Tobacco smoking status Mina gladis [facility] Start: 07-05-2015 End: 08-24-2024 Sex Female (finding) [facility] Start: 08-28-2024 Tobacco smoking stat NHIS [facility]as[facility] Start: 09-16-2024 End: 11-12-2024 Alcoholic beverage intake Lifetime non-drinker (finding) [facility] Start: 1970 Sex assigned at Not on file [employer] Medical Equipment Procedure Code Equipment Code Equipment Origin al Text Equipment Identifier Dates SHOULDER ARTHROS COPY W/ POSSIBLE REPAIR Eliazar Brooks DO 02/10/24 Non Biological Shoulder L [id number] [facility] Start: 02-10-2024 [id number] Start: 09-23-2024 [id number] Start: [...] [facility] Clinical Notes 08-14-2021 to 11-24-2024 Priyanka Velez RN - 11/24/2024 2:40 PM EDT Note Date & Type Note Facility 11-24-2024 History of Presen t illness Narrative Received a call from nurse Jessica at [facility]. She has informed our office [...] date and instructions. documented in this encounter [facility] 11-24-2024 Hospital Discharg e instructions Patient Education 11/24/2024 09:06:02 Acute Urinary Retention, Female, Piha-zb-Nigd Acute Urinary Retention, Female Acute urinary retention is when a person cannot pee (urinate) at all, or can only pee a little. This can come on all of a sudden. If it is not treated, it can lead to kidney problems or other serious problems. What are the causes? A problem with the tube that drains the bladder (urethra). Problems with the nerves in the bladder. The organs in the area between your hip bones (pelvis) slipping out of place (prolapse). Tumors. The of a baby through the vagina. An infection. Having trouble pooping (constipation). Certain medicines. What increases the risk? Women over age 50 are more at risk. Other conditions also can increase risk. These include: Diseases, such as multiple sclerosis. Injury to the spinal cord. Diabetes. A condition that affects the way the brain works, such as dementia. Holding back urine due to trauma or because you do not want to use the bathroom. History of not being able to pee or peeing too little. Having had surgery in the area between your hip bones. What are the signs or symptoms? Trouble peeing. Pain in the lower belly. How is this treated? Treatment for this condition may include: Medicines. Placing a thin, germ-free tube (catheter) into the bladder to drain pee out of the body. Therapy to treat mental health conditions. Treatment for conditions that may cause this. If needed, you may be treated in the hospital for kidney problems or to manage other problems. Follow these instructions at home: Medicines Take spot-ivc-whqvjfm and prescription medicines only as told by your doctor. Ask your doctor what medicines you should stay away from. If you were given an antibiotic medicine, take it as told by your doctor. Do not stop taking it even if you start to feel better. General instructions Do not smoke or use any products that contain nicotine or tobacco. If you need help quitting, ask your doctor. Drink enough fluid to keep your pee pale yellow. If you were sent home with a tube that drains the bladder, take care of it as told by your doctor. Watch for changes in your symptoms. Tell your doctor about them. If told, keep track of changes in your blood pressure at home. Tell your doctor about them. Keep all follow-up visits. Contact a doctor if: You have spasms in your bladder that you cannot stop. You leak pee when you have spasms. Get help right away if: You have chills or a fever. You have blood in your pee. You have a tube that drains pee from the bladder and these things happen: ?The tube stops draining pee. ?The tube falls out. Summary Acute urinary retention is when you cannot pee at all or you pee too little. If this is not treated, it can cause kidney problems or other serious problems. If you were sent home with a tube (catheter) that drains pee from the bladder, take care of it as told by your doctor. Watch for changes in your symptoms. Tell your doctor about them. This information is not intended to replace advice given to you by your health care provider. Make sure you discuss any questions you have with your health care provider. Document Revised: 01/25/2021 Document Reviewed: 01/25/2021 [employer] Patient Education 2023 [employer]. Follow Up Care 10/09/2024 11:33:20 With:REGINA MATTHEWS PA-C, URL Address: [address] [place] [address]. [place] [address] When:Within 3 Month(s) [facility] 11-24-2024 Note Patient Education Obstetrics and Gynecology Acute [...] these instructions at home: Medicines ??? Take ytwi-nzh-qbppmix and prescription medicines only as told by [...] provider. Document Revised: 01/25/2021 Document Reviewed: 01/25/2021 [employer] Patient Education ? 2023 [employer]. [facility] 11-19-2024 Evaluation note Diagnosis Onset Date Resolution BRANDON (acute kidney injury) acute November 19, 2024 2 :21pm Hyperlipemia acute November 19 2:21pm Hypertension acute November 19 2:21pm Multiple sclerosis acute November 192024 2:21pm [facility] Work Phone: 1(566) 566-518106-27-2025 Miscellaneous Notes* Telephone Encounter - Cuca Sullivan - 11/13/2024 12:46 PM EDT Spoke with patient to let her know that she will be responsible for 40% of the bills. Patient states that she is ok with this. documented in this encounterBlanchard Valley [facility] System [facility] HospitalFlypaper [facility][id number] Telephone encounter Note* Telephone Encounter - Cuca Sullivan - 11/13/2024 12:46 PM EDT Spoke with patient to let her know that she will be responsible for 40% of the bills. Patient states that she is ok with this. [facility] History of Present illness Narrative* Nancy Hernandez RN - 11/12/2024 3:45 PM EDT Patient accompanied by assistant facility manager from [facility] for Consult with Dr Sandoval (and Dr Mendoza) for diagnosis of Glioblastoma Craniotomy performed by Dr Espinal on 09/23/24 MR/Brain for SRS treatment planning tomorrow 11/13 at 1015am; Consent obtained to perform CT/Sim after with intention to plan concurrent ChemoRT with daily Temodar AVS provided with understanding verbalized documented in this encounterCommunity [facility] Medical Center06-26-2025 History of Present illness Narrative* She Drew RN - 11/12/2024 1:53 PM EDT Patient saw Dr. Mendoza for consult for glioblastoma. Patient unsure if she wants to pursue concurrent chemo with RT. Will call patient in two weeks to see if she has made her decision. documented in this encounterCommunity Regional Medical Center06-26-2025 History of Present illness Narrative* Nancy Hernandez RN - 11/12/2024 12:17 PM EDT RN attempted to contact Pt daughter Anna and son Aman per request of patient and Dr Sandoval to further discuss case and treatment planning; No answer on either line; left vm requesting return call documented in this encounterCommunity Regional Medical Center06-26-2025 History of Present illness Narrative* Guillermo Mendoza MD - 11/12/2024 11:00 AM EDT Images from the original note were not included. [facility] 11/12/24 Anupama Vasquez is a 54 y.o. year old female seen today in the oncology clinic. Chief Complaint Patient presents with New Patient History of Present Illness: Mrs. Vasquez is a 54 y.o. 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 The patient came to her clinic for my oncologic or opinion regarding further treatment. She is hereaccompanied by a caregiver from alf. She told me she is able to [...] Medical History: Diagnosis Date MS (multiple sclerosis) ([facility]) 2012 Past Surgical History: Procedure Laterality Date CARPAL TUNNEL RELEASE Left SHOULDER ARTHROSCOPY W/ ROTATOR CUFF REPAIR Left SYNAPTIVE CRANIOTOMY EXCISION TUMOR Right 09/23/2024 Performed by Jair Espinal MD at [facility] Family History Problem Relation Age of Onset [...] Concern Present (06/04/2023) Received from [facility] [place] [facility] - Occupational Stress Questionnaire Feeling of Stress : Only a little Social Connections: Moderately Integrated (06/04/2023) Received from [facility] Social Connection and Isolation Panel [NHANES] Frequency of Communication with Friends and Family: Twice a week Frequency of Social Gatherings with Friends and Family: Once a week Attends Alevism Services: 1 to 4 times per year [...] 0 Dose: 500 mg Signed by: Jesi Phlipot, MOTORCOACH OPERATOR-HEAD OF DESIGN 500 mg, oral, 2 times daily Commonly known as: KEPPRA levoFLOXacin 500 mg tablet Refills: 0 Dose: 500 mg Commonly known as: LEVAQUIN metoprolol tartrate 25 mg tablet Refills: 0 Dose: 25 mg Signed by: Jesi Phlipot, MOTORCOACH OPERATOR-HEAD OF DESIGN 25 mg, oral, 2 times daily Commonly known as: LOPRESSOR mirtazapine 15 mg disintegrating tablet Refills: 0 Dose: 15 mg Commonly known as: REMERON CANDI-TAB nystatin powder Refills: 0 Commonly known as: MYCOSTATIN potassium chloride 10 MEQ CR capsule Refills: 0 Commonly known as: CAROLOR-BILL SPRINKLE sennosides-docusate sodium 8.6-50 mg Refills: 0 Dose: 2 tablet Signed by: JACQUELINE Villanueva 2 tablets, oral, Nightly Commonly known as: SENOKOT-S traZODone 50 mg tablet Refills: 0 Dose: 25 mg Commonly known as: DESYREL Review of Symptoms: Review of Systems ECO- Symptomatic; in bed >50% of the day Physical Exam: General: Well appearing, in no acute distress. Vitals: BP 122/63 Pulse 82 Temp 36.7 C (98.1 F) (Oral) Resp 22 Ht 165.1 cm (5' 5 ) SpO2 100% BMI 42.10 kg/m Body mass index is 42.1 kg/m . Eyes: No icterus, no conjuctival erythema ENT: [...] Addressed This Visit Other GBM (glioblastoma multiforme) ([facility]) - Primary Impression: Brain glioblastoma, IDH-wildtype (STUDY LEAD WHO grade 4), negative for MGMT promoter [...] patient's accurate height and weight. Thank you. Guillermo Mendoza MD Please note that portions of this note were generated using voice recognition [employer] dictation software. Although every effort was made to ensure the accuracy of this automated retail field merchandiser, some errors in retail field merchandiser may have occurred. CC: Patient Care Team: Fred Gracia APRN-RUBINA as PCP - General (Nurse Practitioner) Jacob Kaiser MD as Consulting Physician (Radiation Oncology) PCP:FRED GRACIA Referring MD: Reji Garcia APRN-* documented in this encounterBlanchard Valley Health System Bl[facility] Valley HospitalFlypaper [facility]-[id number] Instructions* Patient Instructions* Guillermo Mendoza MD - 11/12/2024 11:00 AM EDT Follow-up in 4 weeks to finalize treatment plan. The patient is deciding whether she wants to proceed with treatment. Plan for concurrent chemoradiation with Temodar documented in this encounterCommunity [facility] Medical Center06-25-2025 Miscellaneous Notes* Telephone Encounter - Leyla Gusman - 11/11/2024 1:02 PM EDT Received referral for Radiation consult. Patient is currently at [facility]. I called andwas transferred to [place] I was told he is the transportation scheduler maintenance. [phone] documented in this encounterCommunity Regional Medical Center06-25-2025 Telephone encounter Note* Telephone Encounter - Leyla Gusman - 11/11/2024 1:02 PM EDT Received referral for Radiation consult. Patient is currently at [facility]. I called andwas transferred to [place] I was told he is the transportation scheduler maintenance. [phone] [facility] Miscellaneous Notes* Telephone Encounter - Anya Soni RN - 11/11/2024 11:19 AM EDT Dia from [facility] calls asking that the office note be sent to the [facility] so they can see the plan of care. Faxed as per request. documented in this encounterCommunity Regional Medical Center06-25-2025 Telephone encounter Note* Telephone Encounter - Anya Soni RN - 11/11/2024 11:19 AM EDT Dia from [facility] calls asking that the office note [facility] so they can see the plan of care. Faxed as per request. [facility] Miscellaneous Notes* Telephone Encounter - Ellie Coleman CMA - 11/11/2024 9:01 AM EDT L/M ON V/M Daughter Anna asked her to call regarding SWIMMING POOL MAINTENANCE referral from Dr. Espinal, patient is currently staying at [facility], asking where patient would like to be seen at for appointment,ask for Ellie. documented in this encounterCommunity Regional Medical Center06-25-2025 Telephone encounter Note* Telephone Encounter - Ellie Coleman CMA - 11/11/2024 9:01 AM EDT L/M ON V/M Daughter Anna asked her to call regarding SWIMMING POOL MAINTENANCE referral from Dr. Espinal, patient is currently staying at [facility], asking where patient would like to be seen at for appointment,ask for Ellie. [facility] History of Present illness Narrative* Reji Garcia APRN-RUBINA - 11/10/2024 1:10 PM EDT Images from the original note were not included. [facility] [address] [place] [address], [address] [place] [address] * CHART NOTE ? 11/10/2024 Patient: Anupama Vasquez 1970 [id number] Nurse Practitioner: Reji Garcia CNP Physician: Jair Espinal MD, FAANS IMPRESSION / PLAN 54 y.o. female S/P synpative craniotomy excision tumor performed on 09/23/24 reporting lateral doublevision that began approximately 3 weeks postop. I will refer her to an acid bath mixer to discuss the use of PRISM glasses [...] weeks postop. She is currently at the [facility] where she is doing PT [...] Concern Present (06/04/2023) Received from [facility] [place] [facility] - Occupational Stress Questionnaire Feeling of Stress : Only a little Social Connections: Moderately Integrated (06/04/2023) Received from [facility] Social Connection and Isolation Panel [NHANES] Frequency of Communication with Friends and Family: Twice a week Frequency of Social Gatherings with Friends and Family: Once a week Attends Alevism Services: 1 to 4 times per year [...] anotated for the patient. Electronically Signed By: Reji Garcia CNP in conjunction with Jair Espinal MD This note was created with the assistance of a speech recognition program with the goal of generating a timely record of the patient encounter. Inadvertent computerized retail field merchandiser errors related to syntax, spelling, homophones, and/or inaudibility may be present. Scribe Statement: Scribed for and in the presence of Jair Espinal MD by Wayne Farris. Provider Statement: I, Jair Espinal MD personally performed the services described in the documentation, as scribedby Wayne Farris in my presence, and it is both accurate and complete Wayne Farris 11/10/24 0959 Wayne Farris 11/10/24 1308 JACQUELINE Goel 11/10/24 1420 documented in this encounterBlanchard Valley Health System Blanchard Valley HospitalOktogo [id number] Instructions* Patient Instructions* Steffanie aMrte CMA - 11/10/2024 1:10 PM EDT Patient seen today by KISHA. Referred to opthalmology. Medical oncology and rad/onc. SS * Attachments The following attachments cannot be sent through Care Everywhere. * Quitting smoking for adults ([place]) documented in this encounterCommunity Regional Medical Center05-23-2025 NoteUrology Office/Clinic Note Chief Complaint referral, [place], urinary retention after brain surgery HPI Staff 54 yr old female here due to Urinary retention. Pt has Alexis. Denies any issues w alexis. No gross hematuria. No pain. No leaking around alexis. 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 Pt is her own medical [...] of urine, unspecified) Hx MS. Transferred from [facility] to [facility] on 09/18/24 d/t BRANDON, brain mass w shift and AMS. 1.5Lretention upon admission w BRANDON (Satellite Tv Technician Installer 15.68) bilat hydro on US, improved to 0.74 on 09/28/24. ECF attempted void trial on 10/02/24 but pt unable to void so Alexis replaced. She's currently working w PT toincrease mobility. Does not recall ever having urinary [...] E&M of New Patient Moderate 45-59 Min 55377 Influenza immunization status assessed 1030F Medication list [...] REGINA Pedraza, URL Within 6 weeks [address] [place] [address] [facility] (1) Additional Instructions: Patient Education Acute Urinary [...] days, Former smoker, quit more than 30 daysago Tobacco Use:. Never Smokeless Tobacco Use:. Cigarettes, Yes, 10/09/2024[facility] HospitalComment on above:Result Comment: Electronically Signed By: REGINA MATTHEWS PA-C.kimberly\Date and Time Signed: 10/09/2510:41 [id number] NotePatient Education Obstetrics and Gynecology Acute Urinary Retention, Female Acute urinary retention is a condition in which a person is unable to pass urine or can only pass alittle urine. This condition can happen suddenly and [...] to trauma or because she does not wantto use the bathroom. ??? History of preexisting [...] these instructions at home: Medicines ??? Take dijs-grx-hcrllea and prescription medicines only as told by your health care provider. Avoid certain medicines, such as decongestants, antihistamines, and some prescription medicines. Do nottake any medicine unless your health care provider approves. ??? If you were prescribed an antibiotic medicine, take it as told by your health care provider. Donot stop using the antibiotic even if you [...] narrowing of the tube that drains the bladder(urethra). This may be caused by surgery, problems [...] provider. Document Revised: 01/25/2021 Document Reviewed: 01/25/2021 [employer] Patient Education ? 2023 [employer].[facility] 09-29-2024 Miscellaneous Notes* Telephone Encounter - Anya Soni RN - 09/29/2024 10:27 AM EDT Demetria calls stating that she would like to know about incision care and when to remove sutures- discussed that sutures are chromic and should dissolve with washing gently over them. She states that Anupama does not want to shower daily, so she will write the order to wash gently over the incision with baby shampoo. Incision is healing well. documented in this encounterCommunity Regional Medical Center05-13-2025 Telephone encounter Note* Telephone Encounter - Anya Soni RN - 09/29/2024 10:27 AM EDT Demetria calls stating that she would like to know about incision care and when to remove sutures- discussed that sutures are chromic and should dissolve with washing gently over them. She states that Anupama does not want to shower daily, so she will write the order to wash gently over the incision with baby shampoo. Incision is healing well. [facility] [id number] Nurse Note* Elma Moreno RN - 09/29/2024 12:17 AM EDTSummary: discharge Report called and given to [facility] Patient called and talked to daughter let her know that she was going to be leaving, patient had nobelongings to send with her Patient left with [employer] [facility] mobile transport - Elma Moreno RN 09/29/24 12:19 AM * Laurel Lagunas RN - 09/25/2024 9:46 AM EDT Multidisciplinary Rounds Attendees: Bedside RN, Unit clinical lead, PT, OT, PIANO PROFESSOR, and Care navigation Diet: Dietary Orders (From admission, onward) Start Ordered 09/24/24 1405 Adult diet Level 5 Minced and Moist diet; No straws Diet effective now Comments: Mildly thick liquids Question Answer Comment Diet Type: Level 5 Minced and Moist diet Additional Liquid/Fluid Modifiers: No straws 09/24/24 1407 PT OT PIANO PROFESSOR: PT OT PIANO PROFESSOR Orders (From admission, onward) Start Ordered 09/25/24 [...] Barriers: None Discharge Plan: Needs PT/OT evaluation * Laurel Lagunas RN - 09/24/2024 10:50 AM EDT Multidisciplinary Rounds Attendees: Bedside RN, Unit clinical lead, PT, OT, PIANO PROFESSOR, and Care navigation Diet: Dietary Orders (From admission, onward) Start Ordered 09/23/24 214 Adult diet Regular Texture Diet effective now Question: Diet Type: Answer: Regular Texture 09/23/242142 PT OT PIANO PROFESSOR: PT OT PIANO PROFESSOR Orders (From admission, onward) Start Ordered 09/24/24 [...] Plan: Needs PT/OT evaluation documented in this encounterCommunity Regional Medical Center05-13-2025 Miscellaneous Notes* Plan of Care - Elma Moreno RN - 09/29/2024 12:15 AM EDT Problem: Pain Goal: Patient goal is pain score less than 4, able to rest, and participant in treatment plan as appropriate Description: INTERVENTIONS: 1. Encourage patient or legal marketing representative to report early pain and ask [...] per policy 9. Teach patient or legal marketing representative interventions for comforting Outcome: Adequate for [...] at the bedside 7. Instruct patient/ patient marketing representative about use of safety devices 8. Include patient/ patient marketing representative in decisions related to safety Outcome: [...] hygiene technique. 7. Identify and instruct patient/patient marketing representative in use of appropriate isolation precautionsfor identified infection/symptoms. 8. Provide and discuss with patient/patient marketing representative on educational MDRO sheet. 9. Encourage and monitor nutritional status daily and consult wheat combine driver if indicated. 10. Implement neutropenic guidelines as needed. Outcome: Adequate for Discharge Problem: Knowledge Deficit Goal: Patient/patient marketing representative demonstrates understanding of disease process, treatment plan,medications, and discharge instructions Description: INTERVENTIONS 1. Complete [...] supplement as ordered 13. Collaborate with clinical wheat combine driver 14. Include patient/ patient's marketing representative in decisions related to nutrition Outcome: [...] Score of =/> 25 or indicated by [facility] Assessment Goal: Patient should be free from fall Description: Interventions: 1. [place] to environment 2. Hourly rounds addressing the [...] non-skid footwear 11. Teach patient and patient marketing representative to maintain environment for safety and [...] (cane, walker) within reach 19. Request patient marketing representative bring adaptive equipment/mobility aids from home or obtain and provide as needed 20. Consult pharmacy regarding effects of med's affecting mobility, cognition, and alternatives 21. Obtain physician order for PT if risk factors associated with mobility are present 22. Obtain physician order for OT as appropriate 23. Utilize diversional activities 24. Educate patient and patient marketing representative how to maintain a safe environment during visitationtimes (notify nurse prior to leaving bedside) 25. Consider appropriateness of medical or non-medical lab technician 26. Set up voiding schedule as appropriate [...] interventions as ordered Outcome: Adequate for Discharge * PT/OT/PIANO PROFESSOR - Lorna Dias CCC-PIANO PROFESSOR - 09/28/2024 2:37 PM EDT Speech Therapy Videofluoroscopic Swallow Study Evaluation Impressions Oral Phase: Mild-moderate Pharyngeal Phase: Mild Functional Oral Intake Scale: Total PO intake. No restrictions Recommendations Diet Level: Regular Liquid Level: Level 0 Thin Compensatory Strategies: Small sips/bites, One sip/bite at a time, Follow aspiration precautions Supervision/Positioning: Patient at 90 degress for all PO intake (including medication), Patient toremain upright 15 minutes after meals Medications: In applesauce/puree Discharge Recommendations: long-term facility Plan Frequency: 2-3days/week Duration: until discharge [...] PO intake following exam. Prognosis Services: Skilled PIANO PROFESSOR services to address above deficits Prognosis/Potential: Good [...] trace residue within or on pharyngeal structures [facility] Overall Impression Scores Oral Impairment Total: 9 Pharyngeal Impairment Total: 8 Penetration/Aspiration Scale Penetration/Aspiration Scale Performed: Yes Level 0 Thin: Contrast entered the airway, remained above the vocal folds, and was ejected from theairway Level 4 Pureed: Contrast did not enter [...] Dysphagia Problem: Swallowing Dates: Start: 09/24/24 Disciplines: PIANO PROFESSOR Goal: LTG: Patient will tolerate least restrictive diet recommended by PIANO PROFESSOR without signs and symptoms of aspiration 90% of the time Dates: Start: 09/24/24 Expected End: 10/25/24 Disciplines: PIANO PROFESSOR Outcomes Date/Time User Outcome 09/28/24 MARCLEA WhitfieldPIANO PROFESSOR Progressing Goal: STG: Patient will complete safety strategies independently during PO intake 90% of the time Dates: Start: 09/24/24 Expected End: 10/25/24 Disciplines: PIANO PROFESSOR Outcomes Date/Time User Outcome 09/28/24 NATANAEL Whitfield Progressing Goal: STG: Patient will complete oral/ pharyngeal strengthening program with resistance with 90% accuracy with minimal cueing Dates: Start: 09/24/24 Expected End: 10/25/24 Disciplines: PIANO PROFESSOR Outcomes Date/Time User Outcome 09/28/24 MARCELA WhitfieldPIANO PROFESSOR Progressing Goal: STG: Patient will tolerate therapeutic feeding trials of advanced textures with 90% accuracy with minimal cueing Dates: Start: 09/24/24 Expected End: 10/25/24 Disciplines: PIANO PROFESSOR Outcomes Date/Time User Outcome 09/28/24 1126 Laurel Moralez [facility]-PIANO PROFESSOR Progressing Template: ST - Rehab Speech Problem: Auditory Comprehension Dates: Start: 09/24/24 Disciplines: PIANO PROFESSOR Goal: LTG: Patient will comprehend communication related to basic medical and social needs and utilize compensatory strategies to maintain safety in a functional living environment Dates: Start: 09/24/24 Expected End: 10/25/24 Disciplines: PIANO PROFESSOR Goal: STG: Patient will answer complex yes/no questions with 90% accuracy with minimal cueing Dates: Start: 09/24/24 Expected End: 10/25/24 Disciplines: PIANO PROFESSOR Goal: STG: Patient will complete 1-3 step commands with 90% accuracy with minimal cueing Dates: Start: 09/24/24 Expected End: 10/25/24 Disciplines: PIANO PROFESSOR Goal: STG: Patient will complete simple, phrase level auditory comprehension tasks with 90% accuracy with minimal cueing Dates: Start: 09/24/24 Expected End: 10/25/24 Disciplines: PIANO PROFESSOR Problem: Cognitive Linguistic Dates: Start: 09/24/24 Disciplines: PIANO PROFESSOR Goal: LTG: Patient will display functional cognitive-linguistic skills to demonstrate appropriate communication and safety within daily activities in a functional living environment Dates: Start: 09/24/24 Expected End: 10/25/24 Disciplines: PIANO PROFESSOR Goal: STG: Patient will demonstrate sustained attention by maintaining focus during a task for 10 minutes with minimal assistance Dates: Start: 09/24/24 Expected End: 10/25/24 Disciplines: PIANO PROFESSOR Goal: STG: Patient will be appropriately oriented to person, place, time and situation with 90% accuracy with minimal cueing Dates: Start: 09/24/24 Expected End: 10/25/24 Disciplines: PIANO PROFESSOR Goal: STG: Patient will describe/demonstrate/initiate use of 3 memory strategies with minimal cueing Dates: Start: 09/24/24 Expected End: 10/25/24 Disciplines: PIANO PROFESSOR Problem: High Level Language Dates: Start: 09/24/24 Disciplines: PIANO PROFESSOR Goal: LTG: Patient will demonstrate use of self-awareness, goal setting, planning, initiation, self-monitoring and problem solving during daily activities to improve safety and awareness in a functional living environment Dates: Start: 09/24/24 Expected End: 10/25/24 Disciplines: PIANO PROFESSOR Goal: STG: Patient will demonstrate functional problem solving and safety awareness with 90% accuracy in daily living tasks in order to increase safe interactions with environment and decrease assistance from caregivers Dates: Start: 09/24/24 Expected End: 10/25/24 Disciplines: PIANO PROFESSOR Problem: Speech Production Dates: Start: 09/24/24 Disciplines: PIANO PROFESSOR Goal: LTG: Patient will develop functional and intelligible speech and utilize compensatory strategies through the use of adequate labial and lingual function, increased articulatory precision and speech prosody Dates: Start: 09/24/24 Expected End: 10/25/24 Disciplines: PIANO PROFESSOR Goal: STG: Patient will use appropriate articulatory accuracy and speech rate when reading/speakingwith 90% accuracy with minimal cueing Dates: Start: 09/24/24 Expected End: 10/25/24 Disciplines: PIANO PROFESSOR Goal: STG: Patient will complete rapid alternating verbal sequences (tongue twisters) with improvedarticulatory precision with 90% accuracy with minimal cueing Dates: Start: 09/24/24 Expected End: 10/25/24 Disciplines: PIANO PROFESSOR Problem: Verbal Expression Dates: Start: 09/24/24 Disciplines: PIANO PROFESSOR Goal: LTG: Patient will utilize compensatory strategies to communicate wants and needs effectively to different conversational partners, maintain safety and participate socially in a functional living environment Dates: Start: 09/24/24 Expected End: 10/25/24 Disciplines: PIANO PROFESSOR Goal: STG: Patient will describe objects, pictures (salient features) with 90% accuracy with minimal cueing to improve word retrieval skills Dates: Start: 09/24/24 Expected End: 10/25/24 Disciplines: PIANO PROFESSOR Goal: STG: Patient will respond to simple/complex open ended questions during activities of daily living with 90% accuracy with minimal cueing Dates: Start: 09/24/24 Expected End: 10/25/24 Disciplines: PIANO PROFESSOR Goal: STG: Patient will complete simple to complex divergent and convergent naming tasks with 90% accuracy with minimal cueing to improve thought organization Dates: Start: 09/24/24 Expected End: 10/25/24 Disciplines: PIANO PROFESSOR Speech Therapy Care Plan (Resolved) There are no resolved problems. Principal Problem: Altered mental status, unspecified altered mental status type Active Problems: Generalized anxiety disorder with panic attacks Hyperlipidemia, acquired Multiple sclerosis (CMS-HCC) LOREZNO (obstructive sleep apnea) Primary hypertension Depression, unspecified Dysphagia, oropharyngeal phase * Discharge Planning Note - Ana Huitron - 09/28/2024 12:04 PM EDT DISCHARGE PLANNING NOTE BLS via PTN scheduled for today 09/28/24 at 4 PM to [facility]. confirmed in [facility]. * Discharge Planning Note - Samantha Lemon - 09/28/2024 11:25 AM EDT DISCHARGE PLANNING NOTE Prior Auth approved for admission to : [facility] (P#: ; F#: ) Approval # [id number] Valid for Dates: 09/28/2024 - 09/30/2024 * PT/OT/PIANO PROFESSOR - NATANAEL Perea - 09/28/2024 11:24 AM EDT Speech Therapy Dysphagia Treatment Note Assessment: Current Diet Tolerance: Level 2 Mildly Thick and Level 5 Minced and Moist Progress: improving Pain Assessment Pain Assessment: No/denies pain Recommendations Diet: Level 5 minced and moist diet, level 2 mildly thick liquids (no straws) Discharge: Custodial Facility Precautions Aspiration Plan: Plan of Care: [...] Dysphagia Problem: Swallowing Dates: Start: 09/24/24 Disciplines: PIANO PROFESSOR Goal: LTG: Patient will tolerate least restrictive diet recommended by PIANO PROFESSOR without signs and symptoms of aspiration 90% of the time Dates: Start: 09/24/24 Expected End: 10/25/24 Disciplines: PIANO PROFESSOR Outcomes Date/Time User Outcome 09/28/24 MARCELA WhitfieldPIANO PROFESSOR Progressing Goal: STG: Patient will complete safety strategies independently during PO intake 90% of the time Dates: Start: 09/24/24 Expected End: 10/25/24 Disciplines: PIANO PROFESSOR Outcomes Date/Time User Outcome 09/28/24 MARCELA WhitfieldPIANO PROFESSOR Progressing Goal: STG: Patient will complete oral/ pharyngeal strengthening program with resistance with 90% accuracy with minimal cueing Dates: Start: 09/24/24 Expected End: 10/25/24 Disciplines: PIANO PROFESSOR Outcomes Date/Time User Outcome 09/28/24 MARCELA WhitfieldPIANO PROFESSOR Progressing Goal: STG: Patient will tolerate therapeutic feeding trials of advanced textures with 90% accuracy with minimal cueing Dates: Start: 09/24/24 Expected End: 10/25/24 Disciplines: PIANO PROFESSOR Outcomes Date/Time User Outcome 09/28/24 [facility]: ST - Rehab Speech Problem: Auditory Comprehension Dates: Start: 09/24/24 Disciplines: PIANO PROFESSOR Goal: LTG: Patient will comprehend communication related to basic medical and social needs and utilize compensatory strategies to maintain safety in a functional living environment Dates: Start: 09/24/24 Expected End: 10/25/24 Disciplines: PIANO PROFESSOR Goal: STG: Patient will answer complex yes/no questions with 90% accuracy with minimal cueing Dates: Start: 09/24/24 Expected End: 10/25/24 Disciplines: PIANO PROFESSOR Goal: STG: Patient will complete 1-3 step commands with 90% accuracy with minimal cueing Dates: Start: 09/24/24 Expected End: 10/25/24 Disciplines: PIANO PROFESSOR Goal: STG: Patient will complete simple, phrase level auditory comprehension tasks with 90% accuracy with minimal cueing Dates: Start: 09/24/24 Expected End: 10/25/24 Disciplines: PIANO PROFESSOR Problem: Cognitive Linguistic Dates: Start: 09/24/24 Disciplines: PIANO PROFESSOR Goal: LTG: Patient will display functional cognitive-linguistic skills to demonstrate appropriate communication and safety within daily activities in a functional living environment Dates: Start: 09/24/24 Expected End: 10/25/24 Disciplines: PIANO PROFESSOR Goal: STG: Patient will demonstrate sustained attention by maintaining focus during a task for 10 minutes with minimal assistance Dates: Start: 09/24/24 Expected End: 10/25/24 Disciplines: PIANO PROFESSOR Goal: STG: Patient will be appropriately oriented to person, place, time and situation with 90% accuracy with minimal cueing Dates: Start: 09/24/24 Expected End: 10/25/24 Disciplines: PIANO PROFESSOR Goal: STG: Patient will describe/demonstrate/initiate use of 3 memory strategies with minimal cueing Dates: Start: 09/24/24 Expected End: 10/25/24 Disciplines: PIANO PROFESSOR Problem: High Level Language Dates: Start: 09/24/24 Disciplines: PIANO PROFESSOR Goal: LTG: Patient will demonstrate use of self-awareness, goal setting, planning, initiation, self-monitoring and problem solving during daily activities to improve safety and awareness in a functional living environment Dates: Start: 09/24/24 Expected End: 10/25/24 Disciplines: PIANO PROFESSOR Goal: STG: Patient will demonstrate functional problem solving and safety awareness with 90% accuracy in daily living tasks in order to increase safe interactions with environment and decrease assistance from caregivers Dates: Start: 09/24/24 Expected End: 10/25/24 Disciplines: PIANO PROFESSOR Problem: Speech Production Dates: Start: 09/24/24 Disciplines: PIANO PROFESSOR Goal: LTG: Patient will develop functional and intelligible speech and utilize compensatory strategies through the use of adequate labial and lingual function, increased articulatory precision and speech prosody Dates: Start: 09/24/24 Expected End: 10/25/24 Disciplines: PIANO PROFESSOR Goal: STG: Patient will use appropriate articulatory accuracy and speech rate when reading/speakingwith 90% accuracy with minimal cueing Dates: Start: 09/24/24 Expected End: 10/25/24 Disciplines: PIANO PROFESSOR Goal: STG: Patient will complete rapid alternating verbal sequences (tongue twisters) with improvedarticulatory precision with 90% accuracy with minimal cueing Dates: Start: 09/24/24 Expected End: 10/25/24 Disciplines: PIANO PROFESSOR Problem: Verbal Expression Dates: Start: 09/24/24 Disciplines: PIANO PROFESSOR Goal: LTG: Patient will utilize compensatory strategies to communicate wants and needs effectively to different conversational partners, maintain safety and participate socially in a functional living environment Dates: Start: 09/24/24 Expected End: 10/25/24 Disciplines: PIANO PROFESSOR Goal: STG: Patient will describe objects, pictures (salient features) with 90% accuracy with minimal cueing to improve word retrieval skills Dates: Start: 09/24/24 Expected End: 10/25/24 Disciplines: PIANO PROFESSOR Goal: STG: Patient will respond to simple/complex open ended questions during activities of daily living with 90% accuracy with minimal cueing Dates: Start: 09/24/24 Expected End: 10/25/24 Disciplines: PIANO PROFESSOR Goal: STG: Patient will complete simple to complex divergent and convergent naming tasks with 90% accuracy with minimal cueing to improve thought organization Dates: Start: 09/24/24 Expected End: 10/25/24 Disciplines: PIANO PROFESSOR Speech Therapy Care Plan (Resolved) There are no resolved problems. Principal Problem: Altered mental status, unspecified altered mental status type Active Problems: Generalized anxiety disorder with panic attacks Hyperlipidemia, acquired Multiple sclerosis (CMS-HCC) LORENZO (obstructive sleep apnea) Primary hypertension Depression, unspecified Dysphagia, oropharyngeal phase * Plan of Care - Taylor Ayala RN - 09/28/2024 10:39 AM EDT Problem: Pain Goal: Patient goal is pain score less than 4, able to rest, and participant in treatment plan as appropriate Description: INTERVENTIONS: 1. Encourage patient or legal marketing representative to report early pain and ask [...] per policy 9. Teach patient or legal marketing representative interventions for comforting Outcome: Progressing Note: [...] at the bedside 7. Instruct patient/ patient marketing representative about use of safety devices 8. Include patient/ patient marketing representative in decisions related to safety Outcome: [...] hygiene technique. 7. Identify and instruct patient/patient marketing representative in use of appropriate isolation precautionsfor identified infection/symptoms. 8. Provide and discuss with patient/patient marketing representative on educational MDRO sheet. 9. Encourage and monitor nutritional status daily and consult wheat combine driver if indicated. 10. Implement neutropenic guidelines as needed. Outcome: Progressing Note: Evaluation of progress towards goal: hand hygiene is preformed when entering and leaving the room. And no new s/s of infection are present. Will continue to monitor Problem: Knowledge Deficit Goal: Patient/patient marketing representative demonstrates understanding of disease process, treatment plan,medications, and discharge instructions Description: INTERVENTIONS 1. Complete [...] supplement as ordered 13. Collaborate with clinical wheat combine driver 14. Include patient/ patient's marketing representative in decisions related to nutrition Outcome: [...] Score of =/> 25 or indicated by [facility] Assessment Goal: Patient should be free from fall Description: Interventions: 1. [place] to environment 2. Hourly rounds addressing the [...] non-skid footwear 11. Teach patient and patient marketing representative to maintain environment for safety and [...] (cane, walker) within reach 19. Request patient marketing representative bring adaptive equipment/mobility aids from home or obtain and provide as needed 20. Consult pharmacy regarding effects of med's affecting mobility, cognition, and alternatives 21. Obtain physician order for PT if risk factors associated with mobility are present 22. Obtain physician order for OT as appropriate 23. Utilize diversional activities 24. Educate patient and patient marketing representative how to maintain a safe environment during visitationtimes (notify nurse prior to leaving bedside) 25. Consider appropriateness of medical or non-medical lab technician 26. Set up voiding schedule as appropriate [...] Progressing Note: Evaluation of progress towards goal: * Situational Awareness - JACQUELINE Ayala - 09/28/2024 10:13 AM EDT Patient's chart, labs, vital signs reviewed today. Patient is medically stable for discharge at this time, awaiting precert to assisted facility. JACQUELINE Ayala 09/28/24 1016 * Discharge Planning Note - RAMIREZ Cotto - 09/28/2024 9:43 AM EDT DISCHARGE PLANNING NOTE Case discussed in daily transition rounds and chart reviewed by CN. Barriers to discharge include SNF precert Discharge Plan remains: return to [facility] SNF. Waiting insurance approval for SNF stay- precert initiated on 09/26. Family is aware and agreeable to transition plan. CN will continue to follow and is available should any further needs arise. - RAMIREZ COTTO 09/28/24 9:44 AM Insurance approved SNF stay. Discharge written, CRF complete. Social work task [facility] to arrange BLS transport and [facility] ambulance was arranged. [facility] notified of discharge and CRF sent. RN updated. Patient is aware and agreeable to transition plan. Social work left a message for daughter to inform of above. - RAMIREZ COTTO 09/28/24 3:29 PM 09/28/24 0943 Enhanced DTR What is the Discharge / Transition Plan? Skilled Return What are the discharge barriers to achieving this plan? Waiting on precertification * Plan of Care - Elma Moreno RN - 09/28/2024 3:58 AM EDT Problem: Pain Goal: Patient goal is pain score less than 4, able to rest, and participant in treatment plan as appropriate Description: INTERVENTIONS: 1. Encourage patient or legal marketing representative to report early pain and ask [...] per policy 9. Teach patient or legal marketing representative interventions for comforting Outcome: Progressing Note: Evaluation of progress towards goal: Patient encouraged to report pain occurrence. Pain to beassessed using 0-10 scale. Pain control with scheduled [...] at the bedside 7. Instruct patient/ patient marketing representative about use of safety devices 8. Include patient/ patient marketing representative in decisions related to safety Outcome: [...] hygiene technique. 7. Identify and instruct patient/patient marketing representative in use of appropriate isolation precautionsfor identified infection/symptoms. 8. Provide and discuss with patient/patient marketing representative on educational MDRO sheet. 9. Encourage and monitor nutritional status daily and consult wheat combine driver if indicated. 10. Implement neutropenic guidelines as needed. Outcome: Progressing Note: Evaluation of progress towards goal: Director Auto assessed pt risk for infection in the beginning and throughout shift. Pt remains afebrile. Will continue to monitor. Problem: Knowledge Deficit Goal: Patient/patient marketing representative demonstrates understanding of disease process, treatment plan,medications, and discharge instructions Description: INTERVENTIONS 1. Complete learning assessment and assess knowledge base 2. Provide teaching at level of understanding 3. Provide teaching via preferred learning method(s) Outcome: Progressing Note: Evaluation of progress towards goal: Director Auto educated pt on admission disease, medications, treatment, [...] supplement as ordered 13. Collaborate with clinical wheat combine driver 14. Include patient/ patient's marketing representative in decisions related to nutrition Outcome: Progressing Note: Evaluation of progress towards goal: patient is level 5 diet, and a level 2 liquid no straws,patients has adequate nutritional intake Problem: Urinary Incontinence [...] be free from fall Description: Interventions: 1. [place] to environment 2. Hourly rounds addressing the [...] non-skid footwear 11. Teach patient and patient marketing representative to maintain environment for safety and [...] (cane, walker) within reach 19. Request patient marketing representative bring adaptive equipment/mobility aids from home or obtain and provide as needed 20. Consult pharmacy regarding effects of med's affecting mobility, cognition, and alternatives 21. Obtain physician order for PT if risk factors associated with mobility are present 22. Obtain physician order for OT as appropriate 23. Utilize diversional activities 24. Educate patient and patient marketing representative how to maintain a safe environment during visitationtimes (notify nurse prior to leaving bedside) 25. Consider appropriateness of medical or non-medical lab technician 26. Set up voiding schedule as appropriate (every 2 hours) Outcome: Progressing Note: Evaluation of progress towards goal: Director Auto assessed pt fall precautions in the beginning andthroughout shift. Pt room left free of clutter, [...] assessments, and waxes and wanes with mentation * Plan of Care - Lida Wright RN - 09/27/2024 9:25 AM EDT Problem: Pain Goal: Patient goal is pain score less than 4, able to rest, and participant in treatment plan as appropriate Description: INTERVENTIONS: 1. Encourage patient or legal marketing representative to report early pain and ask [...] per policy 9. Teach patient or legal marketing representative interventions for comforting Outcome: Progressing Note: Evaluation of progress towards goal: Patient assessed with appropriate pain scale and reportsno pain at the moment. Patient encouraged to [...] at the bedside 7. Instruct patient/ patient marketing representative about use of safety devices 8. Include patient/ patient marketing representative in decisions related to safety Outcome: [...] hygiene technique. 7. Identify and instruct patient/patient marketing representative in use of appropriate isolation precautionsfor identified infection/symptoms. 8. Provide and discuss with patient/patient marketing representative on educational MDRO sheet. 9. Encourage and monitor nutritional status daily and consult wheat combine driver if indicated. 10. Implement neutropenic guidelines as needed. Outcome: Progressing Note: Evaluation of progress towards goal: Patient remains afebrile with absence of typical signs of infection such as redness, swelling, purulent drainage, etc. Labs remain within defined limits. Infection preventative measures maintained. Will continue to monitor patient for any signs or symptomsindicating infection while providing care. Problem: Knowledge Deficit Goal: Patient/patient marketing representative demonstrates understanding of disease process, treatment plan,medications, and discharge instructions Description: INTERVENTIONS 1. Complete [...] support when discharged. Will continue plan of careand assess for further needs regarding above mentioned [...] supplement as ordered 13. Collaborate with clinical wheat combine driver 14. Include patient/ patient's marketing representative in decisions related to nutrition Outcome: Progressing Note: Evaluation of progress towards goal: Patient/patient's marketing representative is involved in decisions related to [...] Score of =/> 25 or indicated by [facility] Assessment Goal: Patient should be free from fall Description: Interventions: 1. [place] to environment 2. Hourly rounds addressing the [...] non-skid footwear 11. Teach patient and patient marketing representative to maintain environment for safety and [...] (cane, walker) within reach 19. Request patient marketing representative bring adaptive equipment/mobility aids from home or obtain and provide as needed 20. Consult pharmacy regarding effects of med's affecting mobility, cognition, and alternatives 21. Obtain physician order for PT if risk factors associated with mobility are present 22. Obtain physician order for OT as appropriate 23. Utilize diversional activities 24. Educate patient and patient marketing representative how to maintain a safe environment during visitationtimes (notify nurse prior to leaving bedside) 25. Consider appropriateness of medical or non-medical lab technician 26. Set up voiding schedule as appropriate (every 2 hours) Outcome: Progressing Note: Evaluation of progress towards goal: Patient remains free from falls while on the unit. Safe environment maintained. Non-skid socks worn while ambulating. Personal items and call light within reach. Bed in lowest position and locked. Side rails up x2. Patient evaluated for use of safe patienthandling equipment. Fall prevention education reinforced with patient. Will continue to assess patie nt's needs regarding fall prevention while providing care. [...] call for assistance with activity based on ass essment. Plan of care ongoing. * Plan of Care - Regina Taylor RN - 09/26/2024 11:52 PM EDT Problem: Pain Goal: Patient goal is pain score less than 4, able to rest, and participant in treatment plan as appropriate Description: INTERVENTIONS: 1. Encourage patient or legal marketing representative to report early pain and ask [...] per policy 9. Teach patient or legal marketing representative interventions for comforting Outcome: Progressing Note: [...] at the bedside 7. Instruct patient/ patient marketing representative about use of safety devices 8. Include patient/ patient marketing representative in decisions related to safety Outcome: Progressing Note: Evaluation of progress towards goal: Patient free from injury; bed to low position; skid freesocks applied; call light in reach Problem: Knowledge Deficit Goal: Patient/patient marketing representative demonstrates understanding of disease process, treatment plan,medications, and discharge instructions Description: INTERVENTIONS 1. Complete [...] disoriented to place, person; calm and pleasant, leftsided weakness; no new neuro deficits * Plan of Care - Lida Wright RN - 09/26/2024 11:34 AM EDT Problem: Pain Goal: Patient goal is pain score less than 4, able to rest, and participant in treatment plan as appropriate Description: INTERVENTIONS: 1. Encourage patient or legal marketing representative to report early pain and ask [...] per policy 9. Teach patient or legal marketing representative interventions for comforting Outcome: Progressing Note: Evaluation of progress towards goal: Patient assessed with appropriate pain scale and reportsno pain at the moment. Patient encouraged to [...] at the bedside 7. Instruct patient/ patient marketing representative about use of safety devices 8. Include patient/ patient marketing representative in decisions related to safety Outcome: [...] hygiene technique. 7. Identify and instruct patient/patient marketing representative in use of appropriate isolation precautionsfor identified infection/symptoms. 8. Provide and discuss with patient/patient marketing representative on educational MDRO sheet. 9. Encourage and monitor nutritional status daily and consult wheat combine driver if indicated. 10. Implement neutropenic guidelines as needed. Outcome: Progressing Note: Evaluation of progress towards goal: Patient remains afebrile with absence of typical signs of infection such as redness, swelling, purulent drainage, etc. Labs remain within defined limits. Infection preventative measures maintained. Will continue to monitor patient for any signs or symptomsindicating infection while providing care. \ Problem: Knowledge Deficit Goal: Patient/patient marketing representative demonstrates understanding of disease process, treatment plan,medications, and discharge instructions Description: INTERVENTIONS 1. Complete [...] support when discharged. Will continue plan of careand assess for further needs regarding above mentioned [...] supplement as ordered 13. Collaborate with clinical wheat combine driver 14. Include patient/ patient's marketing representative in decisions related to nutrition Outcome: Progressing Note: Evaluation of progress towards goal: Patient/patient's marketing representative is involved in decisions related to [...] be free from fall Description: Interventions: 1. [place] to environment 2. Hourly rounds addressing the [...] non-skid footwear 11. Teach patient and patient marketing representative to maintain environment for safety and [...] (cane, walker) within reach 19. Request patient marketing representative bring adaptive equipment/mobility aids from home or obtain and provide as needed 20. Consult pharmacy regarding effects of med's affecting mobility, cognition, and alternatives 21. Obtain physician order for PT if risk factors associated with mobility are present 22. Obtain physician order for OT as appropriate 23. Utilize diversional activities 24. Educate patient and patient marketing representative how to maintain a safe environment during visitationtimes (notify nurse prior to leaving bedside) 25. Consider appropriateness of medical or non-medical lab technician 26. Set up voiding schedule as appropriate (every 2 hours) Outcome: Progressing Note: Evaluation of progress towards goal: Patient remains free from falls while on the unit. Safe environment maintained. Non-skid socks worn while ambulating. Personal items and call light within reach. Bed in lowest position and locked. Side rails up x2. Patient evaluated for use of safe patienthandling equipment. Fall prevention education reinforced with patient. Will continue to assess patie nt's needs regarding fall prevention while providing care. [...] call for assistance with activity based on ass essment. Plan of care ongoing. * Discharge Planning Note - Samantha Lemon - 09/26/2024 11:02 AM EDT DISCHARGE PLANNING NOTE Prior auth submitted to: [employer] Via: [employer] On behalf of : [facility] (P#: ; F#: ) Ref# [id number] * Discharge Planning Note - RAMIREZ Cotto - 09/26/2024 9:33 AM EDT DISCHARGE PLANNING NOTE Case discussed in daily transition rounds and chart reviewed by CN. Barriers to discharge include IV Decadron, IV Keppra, D2.5, IV Mag Discharge Plan remains: return to [facility] SNF. PT/OT recommending SNF. Social work sent therapy evaluations to [facility] and they are ready to accept patient at discharge. Social work task [facility] to start precert. Social work contacted daughter to provide update and she is agreeable to transition plan. CN will continue to follow and is available should any further needs arise. - RAMIREZ COTTO 09/26/24 9:33 AM * Plan of Care - Regina Taylor RN - 09/26/2024 1:39 AM EDT Problem: Pain Goal: Patient goal is pain score less than 4, able to rest, and participant in treatment plan as appropriate Description: INTERVENTIONS: 1. Encourage patient or legal marketing representative to report early pain and ask [...] per policy 9. Teach patient or legal marketing representative interventions for comforting Outcome: Progressing Note: [...] at the bedside 7. Instruct patient/ patient marketing representative about use of safety devices 8. Include patient/ patient marketing representative in decisions related to safety Outcome: Progressing Note: Evaluation of progress towards goal: Patient free from injury; bed to low position; skid freesocks applied; call light in reach Problem: Knowledge Deficit Goal: Patient/patient marketing representative demonstrates understanding of disease process, treatment plan,medications, and discharge instructions Description: INTERVENTIONS 1. Complete [...] left buttock;pt gets turned every 2 hours * PT/OT/PIANO PROFESSOR - Silvia Vasquez OTR/L - 09/25/2024 3:55 PM EDT Occupational Therapy Evaluation Discharge Recommendations OT Recommendations : Custodial Facility SNF/ECF Comments: Recommend SNF to inc safety and IND in ADLs and functional mobility. Pt is a highfall rsk 6 Clicks: Daily Activity Putting on [...] admitted 09/18/24 from SNF, initially went to [facility] ED for altered mental status, CT shows [...] Medical History: Diagnosis Date MS (multiple sclerosis) ([facility]) 2012 Past Surgical History: Procedure Laterality Date CARPAL TUNNEL RELEASE Left SHOULDER ARTHROSCOPY W/ ROTATOR CUFF REPAIR Left SYNAPTIVE CRANIOTOMY EXCISION TUMOR Right 09/23/2024 Performed by Jair Espinal MD at [facility] OT Treatment/Interventions: Functional transfer training, [...] skinny stedy, arterial line, alexis, repositioning sling Telemetry/Fire Prevention Captain: Yes Oxygen Used: room air Other: high [...] month. Per EMR pt has been at [facility] Prior Function Lives With: Son (works 3rd [...] safety awareness. Pt perseverating on wanting pizza, needingto talk to her dtr, and needing to [...] of rail and max A x2 for trunkelevation and advancing BLE over EOB. Pt leaning [...] tx sessions as evidenced by lack of needfor vc's for safety to increase independence in [...] with panic attacks Hyperlipidemia, acquired Multiple sclerosis ([facility]) LORENZO (obstructive sleep apnea) Primary hypertension Depression, unspecified Dysphagia, oropharyngeal phase * PT/OT/PIANO PROFESSOR - Shelli Grady PT - 09/25/2024 3:53 PM EDT Physical Therapy Evaluation Discharge Recommendations PT Recommendations: Custodial Facility SNF/ECF Comments: due to decreased functional [...] admitted 09/18/24 from SNF, initially went to [facility] ED for altered mental status, CT shows 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 with Shift,transfer to [facility] overnight- admit to MICU 09/19: Consults to nephrology for [...] Medical History: Diagnosis Date MS (multiple sclerosis) ([facility]) 2012 Past Surgical History: Procedure Laterality Date CARPAL TUNNEL RELEASE Left SHOULDER ARTHROSCOPY W/ ROTATOR CUFF REPAIR Left SYNAPTIVE CRANIOTOMY EXCISION TUMOR Right 09/23/2024 Performed by Jair Espinal MD at [facility] PT Treatment/Interventions: Functional transfer training, LE strengthening/ROM, Endurance training,Equipment eval/education, Balance, Stair training, Bed mobility, Gait [...] gait belt, skinny stedy, arterial line, alexis Telemetry/Fire Prevention Captain: Yes Oxygen Used: room air Other: high fall risk, confusion--attempted to pull IV out with her teeth--RN updated, MS with leftsided deficits, s/p crani Pain Assessment Pain Assessment: [...] poor historian, asking for pizza and calling physician underwriter whit, pt tried to pull out [...] with panic attacks Hyperlipidemia, acquired Multiple sclerosis ([facility]) LORENZO (obstructive sleep apnea) Primary hypertension Depression, unspecified Dysphagia, oropharyngeal phase * Discharge Planning Note - Manjinder Suresh RN - 09/25/2024 2:25 PM EDT Ongoing Assessment for Discharge Needs Reviewed discharge milestones and patient needs related to discharge plan. Current estimated discharge date of September 25, 2024 has been reviewed by treatment team. Ongoing Assessment for Discharge Needs Flowsheet Row Most Recent Value Services Requested Patient expects to be discharged to: SNF Discharge Disposition SNF SNF Name [facility] Phone: [facility] SNF Accepted? Yes Does the patient need discharge transportation arranged? Yes Transportation Arranged Ambulance Patient choice offered Yes List Provided Patient declined Patient Declined Active with Provider Case discussed in daily transition rounds and chart reviewed by CN. Barriers to discharge include PT/OT to see, alexis, wounds(skin tears), monitoring neuro status. Discharge Plan remains: [facility]. Tasked [facility] to send updated clinical notes. Will needPT/OT to see before we can submit for auth. CN reached out to therapy and was told patient is on list to be seen today. . CN will continue to follow and is available should any further needs arise. - Manjinder Suresh RN 09/25/24 2:25 PM * Discharge Planning Note - Ebony Haro - 09/25/2024 8:45 AM EDT DISCHARGE PLANNING NOTE Updates to [facility] (P#: ; F#: ) * Plan of Care - Elton Morillo RN - 09/25/2024 7:38 AM EDT Problem: Pain Goal: Patient goal is pain score less than 4, able to rest, and participant in treatment plan as appropriate Description: INTERVENTIONS: 1. Encourage patient or legal marketing representative to report early pain and ask [...] per policy 9. Teach patient or legal marketing representative interventions for comforting Outcome: Progressing Note: [...] at the bedside 7. Instruct patient/ patient marketing representative about use of safety devices 8. Include patient/ patient marketing representative in decisions related to safety Outcome: Progressing Note: Evaluation of progress towards goal: Patient safety maintained, call light in reach, area clear of hazards, hourly rounding continued, bed locked in lowest position, alarm on as applicable, nonskid socks on, safety educated completed with patient/family, [...] hygiene technique. 7. Identify and instruct patient/patient marketing representative in use of appropriate isolation precautionsfor identified infection/symptoms. 8. Provide and discuss with patient/patient marketing representative on educational MDRO sheet. 9. Encourage and monitor nutritional status daily and consult wheat combine driver if indicated. 10. Implement neutropenic guidelines as needed. Outcome: Progressing Note: Evaluation of progress towards goal: Patient remains free from signs of infection at this time. Will continue to monitor. Problem: Knowledge Deficit Goal: Patient/patient marketing representative demonstrates understanding of disease process, treatment plan,medications, and discharge instructions Description: INTERVENTIONS 1. Complete learning assessment and assess knowledge base 2. Provide teaching at level of understanding 3. Provide teaching via preferred learning method(s) Outcome: Progressing Note: Evaluation of progress towards goal: Nurse continues to educate patient and family on plan ofcare, Problem: Discharge Planning Goal: Discharge to post-acute [...] supplement as ordered 13. Collaborate with clinical wheat combine driver 14. Include patient/ patient's marketing representative in decisions related to nutrition Outcome: [...] Score of =/> 25 or indicated by [facility] Assessment Goal: Patient should be free from fall Description: Interventions: 1. [place] to environment 2. Hourly rounds addressing the [...] non-skid footwear 11. Teach patient and patient marketing representative to maintain environment for safety and [...] (cane, walker) within reach 19. Request patient marketing representative bring adaptive equipment/mobility aids from home or obtain and provide as needed 20. Consult pharmacy regarding effects of med's affecting mobility, cognition, and alternatives 21. Obtain physician order for PT if risk factors associated with mobility are present 22. Obtain physician order for OT as appropriate 23. Utilize diversional activities 24. Educate patient and patient marketing representative how to maintain a safe environment during visitationtimes (notify nurse prior to leaving bedside) 25. Consider appropriateness of medical or non-medical lab technician 26. Set up voiding schedule as appropriate [...] will report to the proper medical staff. * Plan of Care - Frances Modi RN - 09/24/2024 9:34 PM EDT Problem: Pain Goal: Patient goal is pain score less than 4, able to rest, and participant in treatment plan as appropriate Description: INTERVENTIONS: 1. Encourage patient or legal marketing representative to report early pain and ask [...] per policy 9. Teach patient or legal marketing representative interventions for comforting Outcome: Progressing Note: [...] at the bedside 7. Instruct patient/ patient marketing representative about use of safety devices 8. Include patient/ patient marketing representative in decisions related to safety Outcome: Progressing Note: Evaluation of progress towards goal: Patient safety maintained, call light in reach, area clear of hazards, hourly rounding continued, bed locked in lowest position, alarm on as applicable, nonskid socks on, safety educated completed with patient/family, [...] hygiene technique. 7. Identify and instruct patient/patient marketing representative in use of appropriate isolation precautionsfor identified infection/symptoms. 8. Provide and discuss with patient/patient marketing representative on educational MDRO sheet. 9. Encourage and monitor nutritional status daily and consult wheat combine driver if indicated. 10. Implement neutropenic guidelines as needed. Outcome: Progressing Note: Evaluation of progress towards goal: Patient remains free from signs of infection at this time. Will continue to monitor. Problem: Knowledge Deficit Goal: Patient/patient marketing representative demonstrates understanding of disease process, treatment plan,medications, and discharge instructions Description: INTERVENTIONS 1. Complete [...] be free from fall Description: Interventions: 1. [place] to environment 2. Hourly rounds addressing the [...] non-skid footwear 11. Teach patient and patient marketing representative to maintain environment for safety and [...] (cane, walker) within reach 19. Request patient marketing representative bring adaptive equipment/mobility aids from home or obtain and provide as needed 20. Consult pharmacy regarding effects of med's affecting mobility, cognition, and alternatives 21. Obtain physician order for PT if risk factors associated with mobility are present 22. Obtain physician order for OT as appropriate 23. Utilize diversional activities 24. Educate patient and patient marketing representative how to maintain a safe environment during visitationtimes (notify nurse prior to leaving bedside) 25. Consider appropriateness of medical or non-medical lab technician 26. Set up voiding schedule as appropriate [...] sensory function. Will continue to monitor vital signsand lab results. * Discharge Planning Note - Manjinder Suresh RN - 09/24/2024 2:35 PM EDT Ongoing Assessment for Discharge Needs Reviewed discharge [...] to see. Discharge Plan remains: Return to [facility]-will need precert. CN will continue to follow and is available should any further needs arise. - Manjinder Suresh RN 09/24/24 2:35 PM * PT/OT/PIANO PROFESSOR - Rosario Orr CCC-PIANO PROFESSOR - 09/24/2024 1:31 PM EDT Speech Therapy Videofluoroscopic Swallow Study Evaluation and [...] strategies Medications: In applesauce/puree Referrals: Dysphagia therapy, [place] Discharge Recommendations: (ongoing ST services) Pt educated [...] with h/o MS, who initially presented to [facility] 09/18 from her rehab facility with complaints of altered mental status. Per chart review patient was recently treated for rhabdomyolysis. 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 Pt was transferred to [facility] for neurosurgery consult. 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 Speech consulted post operatively to assess swallow function prior to diet initiation. Prognosis Services: Skilled PIANO PROFESSOR services to address above deficits Prognosis/Potential: Good [...] Preparation/Mastication: disorganized chewing/mashing with solid pieces of bolusunchewed Component 4: Bolus Transport/Lingual Motion: slowed tongue [...] Dysphagia Problem: Swallowing Dates: Start: 09/24/24 Disciplines: PIANO PROFESSOR Goal: LTG: Patient will tolerate least restrictive diet recommended by PIANO PROFESSOR without signs and symptoms of aspiration 90% of the time Dates: Start: 09/24/24 Expected End: 10/25/24 Disciplines: PIANO PROFESSOR Goal: STG: Patient will complete safety strategies independently during PO intake 90% of the time Dates: Start: 09/24/24 Expected End: 10/25/24 Disciplines: PIANO PROFESSOR Goal: STG: Patient will complete oral/ pharyngeal strengthening program with resistance with 90% accuracy with minimal cueing Dates: Start: 09/24/24 Expected End: 10/25/24 Disciplines: PIANO PROFESSOR Goal: STG: Patient will tolerate therapeutic feeding trials of advanced textures with 90% accuracy with minimal cueing Dates: Start: 09/24/24 Expected End: 10/25/24 Disciplines: PIANO PROFESSOR Template: ST - Rehab Speech Problem: Auditory Comprehension Dates: Start: 09/24/24 Disciplines: PIANO PROFESSOR Goal: LTG: Patient will comprehend communication related to basic medical and social needs and utilize compensatory strategies to maintain safety in a functional living environment Dates: Start: 09/24/24 Expected End: 10/25/24 Disciplines: PIANO PROFESSOR Goal: STG: Patient will answer complex yes/no questions with 90% accuracy with minimal cueing Dates: Start: 09/24/24 Expected End: 10/25/24 Disciplines: PIANO PROFESSOR Goal: STG: Patient will complete 1-3 step commands with 90% accuracy with minimal cueing Dates: Start: 09/24/24 Expected End: 10/25/24 Disciplines: PIANO PROFESSOR Goal: STG: Patient will complete simple, phrase level auditory comprehension tasks with 90% accuracy with minimal cueing Dates: Start: 09/24/24 Expected End: 10/25/24 Disciplines: PIANO PROFESSOR Problem: Cognitive Linguistic Dates: Start: 09/24/24 Disciplines: PIANO PROFESSOR Goal: LTG: Patient will display functional cognitive-linguistic skills to demonstrate appropriate communication and safety within daily activities in a functional living environment Dates: Start: 09/24/24 Expected End: 10/25/24 Disciplines: PIANO PROFESSOR Goal: STG: Patient will demonstrate sustained attention by maintaining focus during a task for 10 minutes with minimal assistance Dates: Start: 09/24/24 Expected End: 10/25/24 Disciplines: PIANO PROFESSOR Goal: STG: Patient will be appropriately oriented to person, place, time and situation with 90% accuracy with minimal cueing Dates: Start: 09/24/24 Expected End: 10/25/24 Disciplines: PIANO PROFESSOR Goal: STG: Patient will describe/demonstrate/initiate use of 3 memory strategies with minimal cueing Dates: Start: 09/24/24 Expected End: 10/25/24 Disciplines: PIANO PROFESSOR Problem: High Level Language Dates: Start: 09/24/24 Disciplines: PIANO PROFESSOR Goal: LTG: Patient will demonstrate use of self-awareness, goal setting, planning, initiation, self-monitoring and problem solving during daily activities to improve safety and awareness in a functional living environment Dates: Start: 09/24/24 Expected End: 10/25/24 Disciplines: PIANO PROFESSOR Goal: STG: Patient will demonstrate functional problem solving and safety awareness with 90% accuracy in daily living tasks in order to increase safe interactions with environment and decrease assistance from caregivers Dates: Start: 09/24/24 Expected End: 10/25/24 Disciplines: PIANO PROFESSOR Problem: Speech Production Dates: Start: 09/24/24 Disciplines: PIANO PROFESSOR Goal: LTG: Patient will develop functional and intelligible speech and utilize compensatory strategies through the use of adequate labial and lingual function, increased articulatory precision and speech prosody Dates: Start: 09/24/24 Expected End: 10/25/24 Disciplines: PIANO PROFESSOR Goal: STG: Patient will use appropriate articulatory accuracy and speech rate when reading/speakingwith 90% accuracy with minimal cueing Dates: Start: 09/24/24 Expected End: 10/25/24 Disciplines: PIANO PROFESSOR Goal: STG: Patient will complete rapid alternating verbal sequences (tongue twisters) with improvedarticulatory precision with 90% accuracy with minimal cueing Dates: Start: 09/24/24 Expected End: 10/25/24 Disciplines: PIANO PROFESSOR Problem: Verbal Expression Dates: Start: 09/24/24 Disciplines: PIANO PROFESSOR Goal: LTG: Patient will utilize compensatory strategies to communicate wants and needs effectively to different conversational partners, maintain safety and participate socially in a functional living environment Dates: Start: 09/24/24 Expected End: 10/25/24 Disciplines: PIANO PROFESSOR Goal: STG: Patient will describe objects, pictures (salient features) with 90% accuracy with minimal cueing to improve word retrieval skills Dates: Start: 09/24/24 Expected End: 10/25/24 Disciplines: PIANO PROFESSOR Goal: STG: Patient will respond to simple/complex open ended questions during activities of daily living with 90% accuracy with minimal cueing Dates: Start: 09/24/24 Expected End: 10/25/24 Disciplines: PIANO PROFESSOR Goal: STG: Patient will complete simple to complex divergent and convergent naming tasks with 90% accuracy with minimal cueing to improve thought organization Dates: Start: 09/24/24 Expected End: 10/25/24 Disciplines: PIANO PROFESSOR Speech Therapy Care Plan (Resolved) There are no resolved problems. Principal Problem: Altered mental status, unspecified altered mental status type Active Problems: Generalized anxiety disorder with panic attacks Hyperlipidemia, acquired Multiple sclerosis (CMS-HCC) LORENZO (obstructive sleep apnea) Primary hypertension Depression, unspecified Dysphagia, oropharyngeal phase * PT/OT/PIANO PROFESSOR - Sherron White CCC-PIANO PROFESSOR - 09/24/2024 8:35 AM EDT Speech Therapy Evaluation and Treatment Note Bedside [...] swallow. Please place order. Prognosis Services: Skilled PIANO PROFESSOR services to address above deficits Prognosis/Potential: Good [...] continue to follow along. Prognosis Services: Skilled PIANO PROFESSOR services to address the above deficits Prognosis/Potential: [...] Dysphagia Problem: Swallowing Dates: Start: 09/24/24 Disciplines: PIANO PROFESSOR Goal: LTG: Patient will tolerate least restrictive diet recommended by PIANO PROFESSOR without signs and symptoms of aspiration 90% of the time Dates: Start: 09/24/24 Expected End: 10/25/24 Disciplines: PIANO PROFESSOR Goal: STG: Patient will complete safety strategies independently during PO intake 90% of the time Dates: Start: 09/24/24 Expected End: 10/25/24 Disciplines: PIANO PROFESSOR Goal: STG: Patient will complete oral/ pharyngeal strengthening program with resistance with 90% accuracy with minimal cueing Dates: Start: 09/24/24 Expected End: 10/25/24 Disciplines: PIANO PROFESSOR Goal: STG: Patient will tolerate therapeutic feeding trials of advanced textures with 90% accuracy with minimal cueing Dates: Start: 09/24/24 Expected End: 10/25/24 Disciplines: PIANO PROFESSOR Template: ST - Rehab Speech Problem: Auditory Comprehension Dates: Start: 09/24/24 Disciplines: PIANO PROFESSOR Goal: LTG: Patient will comprehend communication related to basic medical and social needs and utilize compensatory strategies to maintain safety in a functional living environment Dates: Start: 09/24/24 Expected End: 10/25/24 Disciplines: PIANO PROFESSOR Goal: STG: Patient will answer complex yes/no questions with 90% accuracy with minimal cueing Dates: Start: 09/24/24 Expected End: 10/25/24 Disciplines: PIANO PROFESSOR Goal: STG: Patient will complete 1-3 step commands with 90% accuracy with minimal cueing Dates: Start: 09/24/24 Expected End: 10/25/24 Disciplines: PIANO PROFESSOR Goal: STG: Patient will complete simple, phrase level auditory comprehension tasks with 90% accuracy with minimal cueing Dates: Start: 09/24/24 Expected End: 10/25/24 Disciplines: PIANO PROFESSOR Problem: Cognitive Linguistic Dates: Start: 09/24/24 Disciplines: PIANO PROFESSOR Goal: LTG: Patient will display functional cognitive-linguistic skills to demonstrate appropriate communication and safety within daily activities in a functional living environment Dates: Start: 09/24/24 Expected End: 10/25/24 Disciplines: PIANO PROFESSOR Goal: STG: Patient will demonstrate sustained attention by maintaining focus during a task for 10 minutes with minimal assistance Dates: Start: 09/24/24 Expected End: 10/25/24 Disciplines: PIANO PROFESSOR Goal: STG: Patient will be appropriately oriented to person, place, time and situation with 90% accuracy with minimal cueing Dates: Start: 09/24/24 Expected End: 10/25/24 Disciplines: PIANO PROFESSOR Goal: STG: Patient will describe/demonstrate/initiate use of 3 memory strategies with minimal cueing Dates: Start: 09/24/24 Expected End: 10/25/24 Disciplines: PIANO PROFESSOR Problem: High Level Language Dates: Start: 09/24/24 Disciplines: PIANO PROFESSOR Goal: LTG: Patient will demonstrate use of self-awareness, goal setting, planning, initiation, self-monitoring and problem solving during daily activities to improve safety and awareness in a functional living environment Dates: Start: 09/24/24 Expected End: 10/25/24 Disciplines: PIANO PROFESSOR Goal: STG: Patient will demonstrate functional problem solving and safety awareness with 90% accuracy in daily living tasks in order to increase safe interactions with environment and decrease assistance from caregivers Dates: Start: 09/24/24 Expected End: 10/25/24 Disciplines: PIANO PROFESSOR Problem: Speech Production Dates: Start: 09/24/24 Disciplines: PIANO PROFESSOR Goal: LTG: Patient will develop functional and intelligible speech and utilize compensatory strategies through the use of adequate labial and lingual function, increased articulatory precision and speech prosody Dates: Start: 09/24/24 Expected End: 10/25/24 Disciplines: PIANO PROFESSOR Goal: STG: Patient will use appropriate articulatory accuracy and speech rate when reading/speakingwith 90% accuracy with minimal cueing Dates: Start: 09/24/24 Expected End: 10/25/24 Disciplines: PIANO PROFESSOR Goal: STG: Patient will complete rapid alternating verbal sequences (tongue twisters) with improvedarticulatory precision with 90% accuracy with minimal cueing Dates: Start: 09/24/24 Expected End: 10/25/24 Disciplines: PIANO PROFESSOR Problem: Verbal Expression Dates: Start: 09/24/24 Disciplines: PIANO PROFESSOR Goal: LTG: Patient will utilize compensatory strategies to communicate wants and needs effectively to different conversational partners, maintain safety and participate socially in a functional living environment Dates: Start: 09/24/24 Expected End: 10/25/24 Disciplines: PIANO PROFESSOR Goal: STG: Patient will describe objects, pictures (salient features) with 90% accuracy with minimal cueing to improve word retrieval skills Dates: Start: 09/24/24 Expected End: 10/25/24 Disciplines: PIANO PROFESSOR Goal: STG: Patient will respond to simple/complex open ended questions during activities of daily living with 90% accuracy with minimal cueing Dates: Start: 09/24/24 Expected End: 10/25/24 Disciplines: PIANO PROFESSOR Goal: STG: Patient will complete simple to complex divergent and convergent naming tasks with 90% accuracy with minimal cueing to improve thought organization Dates: Start: 09/24/24 Expected End: 10/25/24 Disciplines: PIANO PROFESSOR Speech Therapy Care Plan (Resolved) There are no resolved problems. Principal Problem: Altered mental status, unspecified altered mental status type Active Problems: Generalized anxiety disorder with panic attacks Hyperlipidemia, acquired Multiple sclerosis (CMS-HCC) LORENZO (obstructive sleep apnea) Primary hypertension Depression, unspecified Dysphagia, oropharyngeal phase * Plan of Care - Nazia Conway RN - 09/24/2024 8:07 AM EDT No restraints Problem: Safety - Medical Restraint Goal: Remains free of injury from restraints (Restraint for Interference with Unix Manager) Description: INTERVENTIONS: 1. Determine that other, less restrictive measures have been tried or would not be effective beforeapplying the restraint 2. Evaluate the patient's condition [...] Free from restraint(s) (Restraint for Interference with Unix Manager) Description: INTERVENTIONS: 1. ONCE/SHIFT or MINIMUM Q12H: [...] Note: Evaluation of progress towards goal: complete * Plan of Care - Aron Us RN - 09/23/2024 7:39 PM EDT Problem: Pain Goal: Patient goal is pain score less than 4, able to rest, and participant in treatment plan as appropriate Description: INTERVENTIONS: 1. Encourage patient or legal marketing representative to report early pain and ask [...] per policy 9. Teach patient or legal marketing representative interventions for comforting Outcome: Progressing Note: [...] at the bedside 7. Instruct patient/ patient marketing representative about use of safety devices 8. Include patient/ patient marketing representative in decisions related to safety Outcome: Progressing Note: Evaluation of progress towards goal: Patient safety maintained, call light in reach, area clear of hazards, hourly rounding continued, bed locked in lowest position, alarm on as applicable, nonskid socks on, safety educated completed with patient/family, [...] hygiene technique. 7. Identify and instruct patient/patient marketing representative in use of appropriate isolation precautionsfor identified infection/symptoms. 8. Provide and discuss with patient/patient marketing representative on educational MDRO sheet. 9. Encourage and monitor nutritional status daily and consult wheat combine driver if indicated. 10. Implement neutropenic guidelines as needed. Outcome: Progressing Note: Evaluation of progress towards goal: Labs and vitals monitored as ordered. Medications administered as ordered. Patient remains free from infection at this time. Problem: Knowledge Deficit Goal: Patient/patient marketing representative demonstrates understanding of disease process, treatment plan,medications, and discharge instructions Description: INTERVENTIONS 1. Complete [...] supplement as ordered 13. Collaborate with clinical wheat combine driver 14. Include patient/ patient's marketing representative in decisions related to nutrition Outcome: [...] Score of =/> 25 or indicated by [facility] Assessment Goal: Patient should be free from fall Description: Interventions: 1. [place] to environment 2. Hourly rounds addressing the [...] non-skid footwear 11. Teach patient and patient marketing representative to maintain environment for safety and [...] (cane, walker) within reach 19. Request patient marketing representative bring adaptive equipment/mobility aids from home or obtain and provide as needed 20. Consult pharmacy regarding effects of med's affecting mobility, cognition, and alternatives 21. Obtain physician order for PT if risk factors associated with mobility are present 22. Obtain physician order for OT as appropriate 23. Utilize diversional activities 24. Educate patient and patient marketing representative how to maintain a safe environment during visitationtimes (notify nurse prior to leaving bedside) 25. Consider appropriateness of medical or non-medical lab technician 26. Set up voiding schedule as appropriate [...] all monitored and assessed at this time. Changesfrom baseline reported to necessary personal when needed. Patients care is optimized for cerebral perfusion accordingly to patients orders. Problem: Safety - Medical Restraint Goal: Remains free of injury from restraints (Restraint for Interference with Unix Manager) Description: INTERVENTIONS: 1. Determine that other, less restrictive measures have been tried or would not be effective beforeapplying the restraint 2. Evaluate the patient's condition [...] remains free from injury from restraints at thistime. Goal: Free from restraint(s) (Restraint for Interference with Unix Manager) Description: INTERVENTIONS: 1. ONCE/SHIFT or MINIMUM Q12H: [...] remains free from injury from restraints at thistime. * Op Note - Jair Espinal MD - 09/23/2024 1:18 PM EDT NEUROSURGERY OPERATIVE NOTE Patient Name: Anupama Vasquez [...] altered mental status. MRI demonstrated a large, ring-enhancingmass centered in the right temporal lobe concerning [...] then fastened to the bed with Rivera heading saw operator. Her cranial anatomy was registered to the [employer] software with good accuracy. Stealth probe was utilized to genet a? Incision. The surgical site was then prepped and draped in sterile fashion. A safety pause was completed and answered. She received antibiotic as well as seizure prophylaxis along with steroids for brain relaxation. The incision line was then infiltratedwith lidocaine and epinephrine. Sharp incision was made. Farnaz clips were applied for hemostasis. Amyocutaneous flap was reflected with Bovie and held [...] remove the tumor in piecemeal fashion. The c entral portion of the tumor was necrotic with multiple thrombosed vessels suggestive of high-grade neoplasm. Resection was completed until normal- appearing white matter was encountered. On the medialside, resection was completed in subperiosteal fashion to protect the major vessels. Once resection was complete, specimens were sent off for analysis. The cavity was then irrigated. Bleeding white matter points were coagulated with the bipolar tips. Inspection of the cavity did not reveal any residual neoplasm. The raw surfaces were then lined with Surgicel. The brain at this point appeared muchmore relaxed. The dura was approximated and reinforced with a piece of DuraGen. The bone flap was replaced and fixed to the skull with Jim mini screws and plates. The incision was then irrigated with antibiotic infused saline and closed in the standard layered fashion. Sterile dressing was applied. The patient was awakened, extubated, and transported to the recovery room with stable vital signs. * Brief Op Note - Jair Espinal MD - 09/23/2024 1:18 PM EDT Brief Post-op Note NAME: Anupama Vasquez : 1970 PROCEDURE DATE: 09/23/2024 Surgeon: Surgeons and Role: * Jair Espinal MD - Primary Assistants: None Staff: Hollow Core Door Frame Assembler Primary: Javier Argueta RN Hollow Core Door Frame Assembler Relief: Julia Lofton RN; Sherrie Leiva RN [...] Implant Name Type Inv. Item Serial No. Gang Mower Operator Lot No. LRB No. Used Action PATCH DURA 3X3IN THK3.5MM CRNMXF DRMTRX-ONLAY + NPOR RGNRT RPL [id number] - [id number] Graft PATCH DURA 3X3IN THK3.5MM CRNMXF DRMTRX-ONLAY + NPOR RGNRT RPL [id number] JIM CRANIOMAXILLOFACIAL [id number] Right 1 Implanted PLATE BN 12MM 2 HL LP BAR TAB UNV NEURO II CRNMXF TI NS 1.5 - [id number] Plate PLATE BN 12MM 2 HL LP BAR TAB UNV NEURO II CRNMXF TI NS 1.5 JIM [employer]OM[employer] Right 2 Implanted COVER BUR HL CRNFCL 10MMX.5MM LP TAB STRL LF DISP - [id number] Plate COVER BUR HL CRNFCL 10MMX.5MM LP TAB STRL LF DISP JIM [employer]ANIOMAX[employer]OF[employer] Right 1 Implanted SCREW BN 4MM 1.5MM SLF DRL XPN CRNMXF STRL MUST ORDER IN MULTIPLES OF 5EA - [id number] Screw SCREW BN 4MM 1.5MM SLF DRL [...] was not visualized at time of surgery. * Query Response - JACQUELINE Hamilton - 09/23/2024 10:02 AM EDT Query Response Note AUTOMATED QUERY TEXT: Type [...] by: Anjelica Venegas RN 09/23/2024 10:00 AM * Plan of Care - Reanna Ferguson RN - 09/23/2024 5:03 AM EDT Problem: Safety - Medical Restraint Goal: Free from restraint(s) (Restraint for Interference with Unix Manager) Description: INTERVENTIONS: 1. ONCE/SHIFT or MINIMUM Q12H: [...] Description: INTERVENTIONS: 1. Encourage patient or legal marketing representative to report early pain and ask [...] per policy 9. Teach patient or legal marketing representative interventions for comforting Outcome: Progressing Note: [...] at the bedside 7. Instruct patient/ patient marketing representative about use of safety devices 8. Include patient/ patient marketing representative in decisions related to safety Outcome: [...] hygiene technique. 7. Identify and instruct patient/patient marketing representative in use of appropriate isolation precautionsfor identified infection/symptoms. 8. Provide and discuss with patient/patient marketing representative on educational MDRO sheet. 9. Encourage and monitor nutritional status daily and consult wheat combine driver if indicated. 10. Implement neutropenic guidelines as needed. Outcome: Progressing Note: Evaluation of progress towards goal: Handwashing and standard precautions maintained. Patientremains free from infection through shift and has not shown any additional signs of infection at this time. Will continue to educate on infection prevention. Problem: Knowledge Deficit Goal: Patient/patient marketing representative demonstrates understanding of disease process, treatment plan,medications, and discharge instructions Description: INTERVENTIONS 1. Complete [...] supplement as ordered 13. Collaborate with clinical wheat combine driver 14. Include patient/ patient's marketing representative in decisions related to nutrition Outcome: [...] be free from fall Description: Interventions: 1. [place] to environment 2. Hourly rounds addressing the [...] non-skid footwear 11. Teach patient and patient marketing representative to maintain environment for safety and [...] (cane, walker) within reach 19. Request patient marketing representative bring adaptive equipment/mobility aids from home or obtain and provide as needed 20. Consult pharmacy regarding effects of med's affecting mobility, cognition, and alternatives 21. Obtain physician order for PT if risk factors associated with mobility are present 22. Obtain physician order for OT as appropriate 23. Utilize diversional activities 24. Educate patient and patient marketing representative how to maintain a safe environment during visitationtimes (notify nurse prior to leaving bedside) 25. Consider appropriateness of medical or non-medical lab technician 26. Set up voiding schedule as appropriate [...] injury from restraints (Restraint for Interference with Unix Manager) Description: INTERVENTIONS: 1. Determine that other, less restrictive measures have been tried or would not be effective beforeapplying the restraint 2. Evaluate the patient's condition [...] range of motion, offered hygiene, patient NPO. * Discharge Planning Note - RAMIREZ Cotto - 09/22/2024 9:50 AM EDT DISCHARGE PLANNING NOTE Case discussed in daily transition rounds and chart reviewed by CN. Barriers to discharge include IV Keppra, IV Decadron, IV ATB, alexis, D 2.5, NG TF, right mitt/restraint, OR- cran /7, alexis Discharge Plan remains: return to [facility]. Patient will require a precert for SNF placement. CN will continue to follow and is available should any further needs arise. - RAMIREZ COTTO 09/22/24 9:50 AM * Plan of Care - Yane Sellers RN - 09/22/2024 9:33 AM EDT Problem: Pain Goal: Patient goal is pain score less than 4, able to rest, and participant in treatment plan as appropriate Description: INTERVENTIONS: 1. Encourage patient or legal marketing representative to report early pain and ask [...] per policy 9. Teach patient or legal marketing representative interventions for comforting Outcome: Progressing Note: Evaluation of progress towards goal: Director Auto assessed pt pain in the beginning and throughout shift. Pt stated a tolerable pain goal was zero. Director Auto medicated pt pain per order. Will continue [...] at the bedside 7. Instruct patient/ patient marketing representative about use of safety devices 8. Include patient/ patient marketing representative in decisions related to safety Outcome: [...] hygiene technique. 7. Identify and instruct patient/patient marketing representative in use of appropriate isolation precautionsfor identified infection/symptoms. 8. Provide and discuss with patient/patient marketing representative on educational MDRO sheet. 9. Encourage and monitor nutritional status daily and consult wheat combine driver if indicated. 10. Implement neutropenic guidelines as needed. Outcome: Progressing Note: Evaluation of progress towards goal: Director Auto assessed pt risk for infection in the beginning and throughout shift. Pt remains afebrile. Will continue to monitor. Problem: Knowledge Deficit Goal: Patient/patient marketing representative demonstrates understanding of disease process, treatment plan,medications, and discharge instructions Description: INTERVENTIONS 1. Complete learning assessment and assess knowledge base 2. Provide teaching at level of understanding 3. Provide teaching via preferred learning method(s) Outcome: Progressing Note: Evaluation of progress towards goal: Director Auto educated pt on admission disease, medications, treatment, [...] towards goal: Patient's skin integrity is maintained, physician underwriter assessed at beginning of shift and [...] supplement as ordered 13. Collaborate with clinical wheat combine driver 14. Include patient/ patient's marketing representative in decisions related to nutrition Outcome: [...] goal: Patient's perineal skin integrity is maintained, physician underwriter assessed at beginning of shift and throughout, no changes noted, alexis cathter in place, fallon care provided. Problem: Moderate - High Risk Fall Score Description: García Fall Score of =/> 25 or indicated by [facility] Assessment Goal: Patient should be free from fall Description: Interventions: 1. [place] to environment 2. Hourly rounds addressing the [...] non-skid footwear 11. Teach patient and patient marketing representative to maintain environment for safety and [...] (cane, walker) within reach 19. Request patient marketing representative bring adaptive equipment/mobility aids from home or obtain and provide as needed 20. Consult pharmacy regarding effects of med's affecting mobility, cognition, and alternatives 21. Obtain physician order for PT if risk factors associated with mobility are present 22. Obtain physician order for OT as appropriate 23. Utilize diversional activities 24. Educate patient and patient marketing representative how to maintain a safe environment during visitationtimes (notify nurse prior to leaving bedside) 25. Consider appropriateness of medical or non-medical lab technician 26. Set up voiding schedule as appropriate (every 2 hours) Outcome: Progressing Note: Evaluation of progress towards goal: Director Auto assessed pt fall precautions in the beginning andthroughout shift. Pt room left free of clutter, [...] injury from restraints (Restraint for Interference with Unix Manager) Description: INTERVENTIONS: 1. Determine that other, less restrictive measures have been tried or would not be effective beforeapplying the restraint 2. Evaluate the patient's condition [...] injury from restrains, restrains remain in place, physician underwriter checks pulses, range of motion, offers hygiene, nutrition and repositioning every two hours. Goal: Free from restraint(s) (Restraint for Interference with Unix Manager) Description: INTERVENTIONS: 1. ONCE/SHIFT or MINIMUM Q12H: [...] time, order remains vaild for current shift, physician underwriter performs necessary checks, plan of care ongoing. * Plan of Care - Reanna Ferguson RN - 09/22/2024 2:44 AM EDT Problem: Pain Goal: Patient goal is pain score less than 4, able to rest, and participant in treatment plan as appropriate Description: INTERVENTIONS: 1. Encourage patient or legal marketing representative to report early pain and ask [...] per policy 9. Teach patient or legal marketing representative interventions for comforting Outcome: Progressing Note: [...] at the bedside 7. Instruct patient/ patient marketing representative about use of safety devices 8. Include patient/ patient marketing representative in decisions related to safety Outcome: [...] hygiene technique. 7. Identify and instruct patient/patient marketing representative in use of appropriate isolation precautionsfor identified infection/symptoms. 8. Provide and discuss with patient/patient marketing representative on educational MDRO sheet. 9. Encourage and monitor nutritional status daily and consult wheat combine driver if indicated. 10. Implement neutropenic guidelines as needed. Outcome: Progressing Note: Evaluation of progress towards goal: Handwashing and standard precautions maintained. Patientremains free from infection through shift and has not shown any additional signs of infection at this time. Will continue to educate on infection prevention. Problem: Knowledge Deficit Goal: Patient/patient marketing representative demonstrates understanding of disease process, treatment plan,medications, and discharge instructions Description: INTERVENTIONS 1. Complete [...] supplement as ordered 13. Collaborate with clinical wheat combine driver 14. Include patient/ patient's marketing representative in decisions related to nutrition Outcome: [...] Score of =/> 25 or indicated by [facility] Assessment Goal: Patient should be free from fall Description: Interventions: 1. [place] to environment 2. Hourly rounds addressing the [...] non-skid footwear 11. Teach patient and patient marketing representative to maintain environment for safety and [...] (cane, walker) within reach 19. Request patient marketing representative bring adaptive equipment/mobility aids from home or obtain and provide as needed 20. Consult pharmacy regarding effects of med's affecting mobility, cognition, and alternatives 21. Obtain physician order for PT if risk factors associated with mobility are present 22. Obtain physician order for OT as appropriate 23. Utilize diversional activities 24. Educate patient and patient marketing representative how to maintain a safe environment during visitationtimes (notify nurse prior to leaving bedside) 25. Consider appropriateness of medical or non-medical lab technician 26. Set up voiding schedule as appropriate [...] injury from restraints (Restraint for Interference with Unix Manager) Description: INTERVENTIONS: 1. Determine that other, less restrictive measures have been tried or would not be effective beforeapplying the restraint 2. Evaluate the patient's condition [...] hygiene, range of motion and elimination needs. * Discharge Planning Note - Dean Jessica - 09/21/2024 3:58 PM EDT DISCHARGE PLANNING NOTE Referral sent to. [facility] (P#: ; F#: ) * Discharge Planning Note - RAMIREZ Cotto - 09/21/2024 3:15 PM EDT Images from the original note were not included. DISCHARGE PLANNING NOTE Director Auto left messages for children, introduced self, and [...] Medical History: Diagnosis Date MS (multiple sclerosis) ([facility]) 2012 Prior to admission patient was a skilled patient at [facility] and family is interested in patient returning at discharge. Social work task [facility] to send referral to [facility]. Patient will require precert for placement. PCP: JACQUELINE LUNA Pharmacy:[facility] [place] PCP and pharmacy confirmed with patient. JACQUELINE [...] questions. - RAMIREZ COTTO 09/21/24 3:15 PM * Plan of Care - Cheryl Miguel RN - 09/21/2024 10:48 AM EDT Problem: Pain Goal: Patient goal is pain score less than 4, able to rest, and participant in treatment plan as appropriate Description: INTERVENTIONS: 1. Encourage patient or legal marketing representative to report early pain and ask [...] per policy 9. Teach patient or legal marketing representative interventions for comforting Outcome: Progressing Note: [...] hygiene technique. 7. Identify and instruct patient/patient marketing representative in use of appropriate isolation precautionsfor identified infection/symptoms. 8. Provide and discuss with patient/patient marketing representative on educational MDRO sheet. 9. Encourage and monitor nutritional status daily and consult wheat combine driver if indicated. 10. Implement neutropenic guidelines as [...] injury from restraints (Restraint for Interference with Unix Manager) Description: INTERVENTIONS: 1. Determine that other, less restrictive measures have been tried or would not be effective beforeapplying the restraint 2. Evaluate the patient's condition [...] goal: Respiratory status monitored, PRN oxygen available, willcontinue to monitor. * Plan of Care - Glenny Flanagan RN - 09/21/2024 12:02 AM EDT Problem: Knowledge Deficit Goal: Patient/patient marketing representative demonstrates understanding of disease process, treatment plan,medications, and discharge instructions Description: INTERVENTIONS 1. Complete [...] family members any discharge needs such as transportationand medication needs. Pt will discuss any questions or concerns with care team. Problem: Safety - Medical Restraint Goal: Free from restraint(s) (Restraint for Interference with Unix Manager) Description: INTERVENTIONS: 1. ONCE/SHIFT or MINIMUM Q12H: [...] Description: INTERVENTIONS: 1. Encourage patient or legal marketing representative to report early pain and ask [...] per policy 9. Teach patient or legal marketing representative interventions for comforting Outcome: Progressing Note: [...] at the bedside 7. Instruct patient/ patient marketing representative about use of safety devices 8. Include patient/ patient marketing representative in decisions related to safety Outcome: [...] hygiene technique. 7. Identify and instruct patient/patient marketing representative in use of appropriate isolation precautionsfor identified infection/symptoms. 8. Provide and discuss with patient/patient marketing representative on educational MDRO sheet. 9. Encourage and monitor nutritional status daily and consult wheat combine driver if indicated. 10. Implement neutropenic guidelines as [...] injury from restraints (Restraint for Interference with Unix Manager) Description: INTERVENTIONS: 1. Determine that other, less restrictive measures have been tried or would not be effective beforeapplying the restraint 2. Evaluate the patient's condition [...] remains intact with R mitt restraint in place,pulse present, ROM performed * Plan of Care - JACQUELINE Hughes - 09/20/2024 10:39 AM EDT Orders have been placed for the patient to transfer out of the ICU. Sign-out has been communicated to KIRK Venegas with [facility] Hospitalist. Critical Care will sign off upon transfer or starting tomorrow 0700, whichever comes first. Call the critical care DIANE if there are any further questions.Thank you. JACQUELINE Hughes APRN-CNP 09/20/24 1040 * Plan of Care - Cheryl Miguel RN - 09/20/2024 7:17 AM EDT Problem: Pain Goal: Patient goal is pain score less than 4, able to rest, and participant in treatment plan as appropriate Description: INTERVENTIONS: 1. Encourage patient or legal marketing representative to report early pain and ask [...] per policy 9. Teach patient or legal marketing representative interventions for comforting Outcome: Progressing Note: [...] hygiene technique. 7. Identify and instruct patient/patient marketing representative in use of appropriate isolation precautionsfor identified infection/symptoms. 8. Provide and discuss with patient/patient marketing representative on educational MDRO sheet. 9. Encourage and monitor nutritional status daily and consult wheat combine driver if indicated. 10. Implement neutropenic guidelines as needed. Outcome: Progressing Note: Evaluation of progress towards goal: Pt afebrile, vss, will continue to monitor. Problem: Knowledge Deficit Goal: Patient/patient marketing representative demonstrates understanding of disease process, treatment plan,medications, and discharge instructions Description: INTERVENTIONS 1. Complete [...] on and skin is being frequently checked formoisture.will keep monitoring Problem: Safety - Medical Restraint Goal: Remains free of injury from restraints (Restraint for Interference with Unix Manager) Description: INTERVENTIONS: 1. Determine that other, less restrictive measures have been tried or would not be effective beforeapplying the restraint 2. Evaluate the patient's condition [...] to remain free from injuries related to restraintsby assessing q2 hr. Will keep monitoring * Plan of Care - Glenny Flanagan RN - 09/20/2024 12:49 AM EDT Problem: Knowledge Deficit Goal: Patient/patient marketing representative demonstrates understanding of disease process, treatment plan,medications, and discharge instructions Description: INTERVENTIONS 1. Complete [...] family members any discharge needs such as transportationand medication needs. Pt will discuss any questions [...] injury from restraints (Restraint for Interference with Unix Manager) Description: INTERVENTIONS: 1. Determine that other, less restrictive measures have been tried or would not be effective beforeapplying the restraint 2. Evaluate the patient's condition [...] Pt shows no signs of injury from non- violent mitt restraint Goal: Free from restraint(s) (Restraint for Interference with Unix Manager) Description: INTERVENTIONS: 1. ONCE/SHIFT or MINIMUM Q12H: [...] Description: INTERVENTIONS: 1. Encourage patient or legal marketing representative to report early pain and ask [...] per policy 9. Teach patient or legal marketing representative interventions for comforting Outcome: Progressing Note: [...] at the bedside 7. Instruct patient/ patient marketing representative about use of safety devices 8. Include patient/ patient marketing representative in decisions related to safety Outcome: [...] hygiene technique. 7. Identify and instruct patient/patient marketing representative in use of appropriate isolation precautionsfor identified infection/symptoms. 8. Provide and discuss with patient/patient marketing representative on educational MDRO sheet. 9. Encourage and monitor nutritional status daily and consult wheat combine driver if indicated. 10. Implement neutropenic guidelines as needed. Outcome: Progressing Note: Evaluation of progress towards goal: pt will show no signs or symptoms of infection prior to discharge. Any unneccessary invasive lines and tubes will be removed if not medically necessary to decrease infection risk. * Significant Event - Enid Eaton Jr., MD - 09/20/2024 12:49 AM EDT Went to see patient a little bit after midnight, and she was down in MRI. I will try again later. Enid Eaton Jr., MFrida. [facility] [phone] * Plan of Care - Asim Hinojosa RN - 09/19/2024 7:41 AM EDT Problem: Pain Goal: Patient goal is pain score less than 4, able to rest, and participant in treatment plan as appropriate Description: INTERVENTIONS: 1. Encourage patient or legal marketing representative to report early pain and ask [...] per policy 9. Teach patient or legal marketing representative interventions for comforting 09/19/2024 0741 by MOE Dailey Outcome: Progressing Note: Evaluation of progress towards goal: Patient denies pain at this time; repositioned for comfort; PRN pain medication if needed. 09/19/2024 0739 by MOE Dailey Outcome: Progressing [...] at the bedside 7. Instruct patient/ patient marketing representative about use of safety devices 8. Include patient/ patient marketing representative in decisions related to safety 09/19/2024740 [...] hygiene technique. 7. Identify and instruct patient/patient marketing representative in use of appropriate isolation precautionsfor identified infection/symptoms. 8. Provide and discuss with patient/patient marketing representative on educational MDRO sheet. 9. Encourage and monitor nutritional status daily and consult wheat combine driver if indicated. 10. Implement neutropenic guidelines as needed. 09/19/2024740 by MOE Dailey Outcome: Progressing Note: Evaluation of progress towards goal: No active infections 09/19/2024738 by MEO Dailey Outcome: Progressing Note: Evaluation of progress towards goal: No active infections Problem: Knowledge Deficit Goal: Patient/patient marketing representative demonstrates understanding of disease process, treatment plan,medications, and discharge instructions Description: INTERVENTIONS 1. Complete [...] supplement as ordered 13. Collaborate with clinical wheat combine driver 14. Include patient/ patient's marketing representative in decisions related to nutrition 09/19/2024740 [...] Score of =/> 25 or indicated by [facility] Assessment Goal: Patient should be free from fall Description: Interventions: 1. [place] to environment 2. Hourly rounds addressing the [...] non-skid footwear 11. Teach patient and patient marketing representative to maintain environment for safety and [...] (cane, walker) within reach 19. Request patient marketing representative bring adaptive equipment/mobility aids from home or obtain and provide as needed 20. Consult pharmacy regarding effects of med's affecting mobility, cognition, and alternatives 21. Obtain physician order for PT if risk factors associated with mobility are present 22. Obtain physician order for OT as appropriate 23. Utilize diversional activities 24. Educate patient and patient marketing representative how to maintain a safe environment during visitationtimes (notify nurse prior to leaving bedside) 25. Consider appropriateness of medical or non-medical lab technician 26. Set up voiding schedule as appropriate [...] and sodium. Initiate appropriate interventions as ordered 09/19/2024 0741 by MOE Dailey Outcome: Progressing Note: Evaluation of progress towards goal: 09/19/2024 07 by MOE Dailey Outcome: Progressing Note: Evaluation of progress towards goal: neuro status unchanged * Plan of Care - Glenny Flanagan RN - 09/19/2024 5:01 AM EDT Problem: Knowledge Deficit Goal: Patient/patient marketing representative demonstrates understanding of disease process, treatment plan,medications, and discharge instructions Description: INTERVENTIONS 1. Complete [...] family members any discharge needs such as transportationand medication needs. Pt will discuss any questions [...] Description: INTERVENTIONS: 1. Encourage patient or legal marketing representative to report early pain and ask [...] per policy 9. Teach patient or legal marketing representative interventions for comforting Outcome: Progressing Note: [...] at the bedside 7. Instruct patient/ patient marketing representative about use of safety devices 8. Include patient/ patient marketing representative in decisions related to safety Outcome: [...] hygiene technique. 7. Identify and instruct patient/patient marketing representative in use of appropriate isolation precautionsfor identified infection/symptoms. 8. Provide and discuss with patient/patient marketing representative on educational MDRO sheet. 9. Encourage and monitor nutritional status daily and consult wheat combine driver if indicated. 10. Implement neutropenic guidelines as needed. Outcome: Progressing Note: Evaluation of progress towards goal: pt will show no signs or symptoms of infection prior to discharge. Any unneccessary invasive lines and tubes will be removed if not medically necessary to decrease infection risk. documented in this [facility]Community [facility] Hospital course Narrative* Julio Fernandez MD - 09/28/2024 5:25 PM EDT Images from the original note were not included. [facility] INTERNAL MEDICINE [facility] 9 ACUTE [address] [facility] [id number] Hospital Medicine Discharge Summary Patient: Anupama Vasquez Date of : 1970 Room: [facility]/ Encounter date: 09/28/24 Hospital Day: 11 DATE OF ADMISSION: 09/18/2024 DATE OF DISCHARGE:09/28/2024 DISCHARGE DIAGNOSES Principal Problem: Altered mental status, unspecified altered mental status type Active Problems: Generalized anxiety disorder with panic attacks Hyperlipidemia, acquired Multiple sclerosis ([facility]) LORENZO (obstructive sleep apnea) Primary hypertension Depression, unspecified Dysphagia, oropharyngeal phase [facility] Card[facility] Urology Neurosurgery Nephrology PCP: FRED GRACIA, MOTORCOACH OPERATOR-HEAD OF DESIGN PROCEDURES Craniotomy HOSPITAL COURSE SUMMARY Patient's past medical history significant for MS, initially presented to [facility] from her rehab facility with complaints of altered mental status. Recently treated for rhabdomyolysis. 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 She was transferred to [facility] under Neurosurgery to the ICU. Right [...] EKG completed Echocardiogram showing preserved LVEF with dcik-ta-vxorgjwv mitral stenosis Buttock wound Previously following with [...] 167.6 cm (5' 5.98 ) Wt 114.8 kg(253 lb 1.4 oz) LMP (LMP Unknown) Comment: [...] Troy Shannon MD on 09/28/2024 3:00 PM Annalisa Moreno MD have personally reviewed the image(s) [...] pneumothorax. Impression: No significant interval change or definitiveacute process. Finalized by Eliazar Sterling MD on [...] using the standard protocol. Automated exposure control wasutilized. * All CT scans at this facility use dose modulation, iterative reconstruction, and/or weight based dosing when appropriate to reduce radiation dose to as low as reasonably achievable. FINDINGS: Limited exam due to postoperative and axial only imaging. Postoperative changes of right pterional craniotomy. Tumor debulking is noted. The underlying mass itself is difficult to characterize onthis noncontrast CT. Mild to moderate volume of [...] noncontrast, portable imaging only technique. * Slight intervaldecrease in leftward midline shift. * Intracranial pneumocephalus, [...] no acute findings, and the mediastinum and hilaare grossly negative . No pneumothorax. Impression: No acute pulmonary process. Finalized by Shen Farooq MD on 09/23/2024 12:23 PM Echo complete W/ contrast Result Date: 09/22/2024 Narrative: Left Ventricle: Left ventricle appears normal in size. There is mild increased wall thickness/hypertrophy. Systolic function is normal with an ejection fraction of 55-60%. Right Ventricle:Systolic function is normal. Normal tricuspid annular plane systolic excursion. Mitral Valve: Thereis trace regurgitation. There is moderate stenosis. The [...] of either ureter. No visible distal obstructing process.No suspicious renal mass. GI TRACT: No bowel obstruction. Appendix is normal. Colonic diverticulosis without inflammatory change. PELVIC ORGANS/BLADDER: Containing Alexis catheter, bladder wall thicken ing may be present. No bladder stone. PERITONEUM/RETROPERITONEUM: [...] Brain CT from September 18 outside facility [place] PROCEDURE: Multiplanar multisequence images performed through the brain without contrast utilizing synaptive protocol for surgical planning. FINDINGS: Right temporal mass midlineshift to the opposite side measuring 14 mm. Extensive surrounding vasogenic edema and mass effect partially compressing the right lateral ventricle and completely compressing the third ventricle withdilatation of the left lateral ventricle. The lesion shows heterogeneous intense enhancement and measures 44.4 mm superior to inferior by 46.4 mm anterior to posterior and 38.7 mm medial to lateral Ex tensive susceptibility artifacts within the process suggesting some calcification or hemorrhage No extra-axial fluid collections. No MR evidence for an infarct. Diffusion tensor imaging utilized for delineating the associated white matter tracts. IMPRESSION: Right temporal lobe lesion detailed above for surgical planning. 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 Metastasis can also present in this fashion. Finalized by Juan Antonio Lindquist MD on 09/20/2024 7:17 AM Ultrasound retroperitoneal complete Result Date: 09/19/2024 Narrative: US RETROPERITONEAL COMPLETE HISTORY: Acute renal failure, renal size evaluation, rule out hydronephrosis. COMPARISON: None. TECHNIQUE: Grayscale and color Doppler sonographic images of theurinary bladder and both kidneys. FINDINGS: Right kidney: * 10.6 x 5.3 x 6.1 cm. Cortex: 0.7 cm. Normal echogenicity. * There is a 0.4 cm echogenic focus within the right renal pelvis/proximal right ureter which demonstrates twinkle artifact, compatible with renal calculus. There is mild prominenceof the right renal pelvis which measures 1.2 cm and proximal ureter which measures 0.9 cm. Left kidney: * 14.0 x 4.6 x 5.6 cm. Cortex: 0.7 cm. Normal echogenicity. * Mild prominence of the left renalpelvis which measures up to 2.1 cm. No evidence of contour deforming mass or calculi. Alexis catheter noted within the decompressed bladder. IMPRESSION: * Right nephrolithiasis measuring 0.4 cm with mild right hydronephrosis. * Mild left hydronephrosis without visualized calculus. Approved by Resident Tk Najera MD on 09/19/2024 6:30 AM I, Mao Varner MD have personally reviewed the image(s)and agree with and/or edited the report Finalized by Mao Varner MD on 09/19/2024 6:46 AM DISCHARGE INSTRUCTION Disposition: long-term facility Condition: Stable Activity: activity as tolerated [...] 1 day, THEN 1.5 tablets (3 mg total)3 (three) times a day for 3 days, [...] JACQUELINE AYALA 09/28/2024 5:25 PM [facility] Internal Medicine 7AM-7PM & 7PM-7AM: EpicChat or page through On-Call Finder. JACQUELINE Ayala 09/28/24 0464 Attending Addendum: I Dr Julio Fernandez, personally [...] the plan as noted. documented in this encounterCommunity [facility] Center[facility]-11-[facility]25 History of Present illness Narrative* Skye Lara MD - 09/27/2024 4:31 PM EDT Images from the original note were not included. [facility] INTERNAL MEDICINE [facility] 9 ACUTE [address] [facility] [id number] Hospital Medicine Progress Note Patient: Anupama Vasquez Date of : 1970 Room: [place] [address] PCP: JACQUELINE LUNA Admission date: 09/18/2024 11:59 [...] 167.6 cm (5' 5.98 ) Wt 115.4 kg(254 lb 6.6 oz) LMP (LMP Unknown) Comment: [...] EKG completed Echocardiogram showing preserved LVEF with cyge-nr-luszyjoi mitral stenosis Maintain cardiac monitoring Buttock wound [...] Skye Lara MD 09/27/2024 4:31 PM [facility] Internal Medicine 7AM-7PM & 7PM-7AM: EpicChat or page through On-Call Finder. * Arabella Burt RN - 09/27/2024 10:20 AM EDT Images from the original note [...] Thank you, Arabella Burt RN Rapid Response: [facility] * Rivera Valverde RN - 09/26/2024 7:04 PM EDT Images from the original note [...] Thank you, Russel Valverde RN Rapid Response: [facility] * Skye Lara MD - 09/26/2024 5:01 PM EDT Images from the original note were not included. [facility] INTERNAL MEDICINE [facility] 9 ACUTE [address] [facility] [address] Hospital Medicine Progress Note Patient: Anupama Vasquez Date of : 1970 Room: [place] [address] PCP: FRED GRACIA APRN-RUBINA Admission date: 09/18/2024 [...] 167.6 cm (5' 5.98 ) Wt 118.2 kg(260 lb 9.3 oz) Comment: bed weight LMP [...] to metabolic encephalopathy from above Currently on Apradron 4 mg q.6 hours for cerebral edema [...] EKG completed Echocardiogram showing preserved LVEF with eqhy-ac-lcmzotrf mitral stenosis Maintain cardiac monitoring Buttock wound [...] Neurosurgery Skye Lara MD 09/26/2024 5:01 PM [facility] 7AM-7PM & 7PM-7AM: EpicChat or page through On-Call Finder. * Laura Gore, MOTORCOACH OPERATOR-HEAD OF DESIGN - 09/26/2024 2:28 PM EDT Images from the original note were not included. [facility] [address] [place] [address], [address] [place] [address] * NEUROSURGERY DAILY PROGRESS NOTE DATE:09/26/2024 PATIENT'S [...] with questions or concerns. JACQUELINE Chun Neurosurgery [facility] Patient Touch 09/26/24 2:31 PM To find out which DIANE is on for the day please go to ON-Call Finder in [employer] or [employer] and use log in Skills Matter and search for P[facility] Neurosurgery JACQUELINE Roth 09/26/24 0796 * Arabella Burt RN - 09/26/2024 10:30 AM EDT Images from the original [...] Thank you, Arabella Burt RN Rapid Response: [facility] * DEISY Leroy - 09/25/2024 11:48 AM EDT NUTRITION ADULT FOLLOW UP NUTRITION ASSESSMENT: Patient History: Brief Clinical Summary: Labs:past medical history significant for MS, who initially presented to [facility] from [facility] facility with complaints of altered mental status. Patient with BRANDON, acute urine retention, found to have right temporal mass. Biochemical Data, Medical Tests, and Procedures: 09/23 OR Craniotomy for tumor excision 09/24- VFSS- minced and moist MT2 liquids Results from last 3 days Lab Units 09/25/2441409/24/24 03309/23/24 0701 SODIUM mmol/L 141 141 143 POTASSIUM [...] last 7 days Lab Units 09/25/2441409/24/24 03309/23/24 1649 09/23/24 0701 09/22/24 0614 09/21/24 0230 09/20/24 0259 BEDSIDE GLUCOSE mg/dL -- -- 153* -- -- -- -- GLUCOSE mg/dL 165* 120* -- 106* 129* 127* 149* Results from last 3 days Lab Units 09/25/24 04109/24/24 0331 09/23/24 0701 WBC x10E9/L 23.8* 26.5* 15.1* HEMOGLOBIN g/dL 11.1* 11.2* 12.3 HEMATOCRIT % 34.4* 34.8* 37.3 PLATELETS X10E9/L 120* 155 167 MCV fL 83 82 82 Results from last 3 days Lab Units 09/25/2441409/24/24 03309/23/24 0701 MAGNESIUM mg/dL 1.8 2.3 1.8 Results from last 3 days Lab Units 09/25/2441409/24/24 03309/23/24 0701 PHOSPHORUS mg/dL 2.3* 3.5 3.0 CALCIUM, [...] 22 08/29/2024 Lab Results Component Value Date [id number] 517 09/19/2024 Lab Results Component Value Date [...] intravenous Q6H FELTON JACQUELINE Vazquez 4 mg at09/25/24 0535 dextrose (GLUTOSE) 40 % gel 15 [...] intravenous PRN Steffanie Lozano APRN-RUBINA Stopped at 09/25/24 0824 magnesium sulfate IVPB 4000 mg/100 mL in iso-osmotic water (40 mg/mL premix) 4,000 mg intravenous PRN Steffanie E Walker, MOTORCOACH OPERATOR-HEAD OF DESIGN metoprolol tartrate (LOPRESSOR) tablet 25 mg 25 mg oral BID Jair Espinal MD 25 mg at 09/25/24 0816 mirtazapine (REMERON CANDI-TAB) disintegrating tablet 15 mg 15 mg oral Nightly Jair Espinal MD 15mg at 09/24/242203 niCARdipine (CARDENE) infusion 25 mg/50 [...] tablet 2 tablet oral Nightly Jair Espinal MD2 tablet at 09/24/242203 sodium phosphate 20 mmol in sodium chloride 0.9 % 250 mL IVPB 20 mmol intravenous PRN Steffanie Lozano APRN-RUBINA Or sodium phosphate 20 mmol in sodium chloride 0.9 % 100 mL IVPB 20 mmol intravenous PRN JACQUELINE Hughes Or sod phos di, mono-K phos mono (K-PHOS NEUTRAL) 250 mg tablet 2 tablet 2 tablet oral PRN JACQUELINE Hughes sodium chloride 0.9 % infusion 3 mL/hr intra-arterial Continuous Jair Espinal MD 3 mL/hr at 09/25/24 07 3 mL/hr at 09/25/24 07 Nutrition Focused Physical Findings one stool today 1770ml UO yesterday Skin (per nursing flow sheets): Skin Color: Creswell (09/25/24 0800) Skin Temp: Warm; Dry (09/25/24 0800) Wound (per nursing flow sheets): Wound 09/23/24 Incision Head Right-Site Assessment: Unable to assess (09/25/24 0800) Wound 09/19/24 Skin Tear Thigh Anterior;Left-Site Assessment: Excoriated (09/25/24 0400) Wound 09/19/24 Pressure Injury Buttocks Left-Site Assessment: Clean; Dry; Intact (09/25/24 08) Gastrointestinal (per nursing flow sheets): Abdomen Assessment: Soft (09/25/24 08) Last BM Date: 09/25/24 (09/25/24899) Passing Flatus: Yes (09/25/24 08) RUQ Bowel Sounds: Present (09/25/24 08) LUQ Bowel Sounds: Present (09/25/24799) RLQ Bowel Sounds: Present (09/25/24799) LLQ Bowel Sounds: Present (09/25/24799) GI Symptoms: None (09/25/24799) Edema (per nursing flow sheets): RLE Edema: +2 (09/25/24799) LLE Edema: +2 (09/25/24799) Intake/ Output Last [...] oz) Admit Weight: 119.4kg (Bed Scale, 09/19/24) Orwell Body Weight: 61.4kg Weight Changes: 8.5kg loss/3 months (7%), stable inpatient +/- 2kg Current Body Mass Index: Body mass index is 41.7 kg/m . Comparative Standards: Estimated Energy Needs: 8359-0618 kcals daily. Method and weight used: 28-32 kcal/kg IBW Estimated Protein Needs: 74-123 grams daily. Method and weight used: 1.2-2g protein/kg IBW Estimated Fluid Needs: 0837-9439 ml daily. Method weight used: 28-32 ml/kg IBW Comments: general needs Malnutrition Status: Malnutrition Present: need more information NUTRITION DIAGNOSIS: Clinical Diagnosis: Swallowing difficulty (NC 1.1) Ongoing NUTRITION INTERVENTIONS: Meals & snacks: will add a magic cup to each tray, 290kcal and 9g protein per serving. GOAL(S): meet estimated protein/kcal needs NUTRITION MONITORING AND EVALUATION: po/supplement tolerance, weight/lab trends, POC Nikki Saez R.D,[place] Clinical dietitian Patient Touch extension:[phone] Direct Dial phone number: [phone] 09/25/24 12:04 PM * Skye Lara MD - 09/25/2024 11:06 AM EDT Images from the original note were not included. [facility] INTERNAL MEDICINE [facility] - GEN ICU [address] [facility] [id number] Hospital Medicine Progress Note Patient: Anupama Vasquez Date of : 1970 Room: [place] [address] PCP: FRED GRACIA APRN-RUBINA Admission date: 09/18/2024 [...] Andrey Hernández MD on 09/24/2024 1:31 PM IRemy MD have personally reviewed the image(s) and [...] EKG completed Echocardiogram showing preserved LVEF with gzts-ea-ureiwxgv mitral stenosis Maintain cardiac monitoring Buttock wound [...] per Neurosurgery JACQUELINE Hamilton 09/25/2024 11:06 AM [facility] Internal Medicine 7AM-7PM & 7PM-7AM: EpicChat or page through On-Call Finder. JACQUELINE Hamilton 09/25/24 1743 JACQUELINE Hamilton 09/25/24 1744 I, Skye Lara MD, personally performed the face to face diagnostic evaluation on this patient. I have reviewed the DIANE's History, Exam, and MDM and agree with the assessment and plan as written. * JACQUELINE Vazquez - 09/25/2024 7:08 AM EDT Images from the original note were not included. [facility] [address] [place] [address], [address] [place] [address] * NEUROSURGERY DAILY PROGRESS NOTE DATE:09/25/2024 PATIENT'S [...] Right temporal glioma s/p resection PLAN - PIANO PROFESSOR evaluated yesterday. VSS today. - Continue serial [...] Edward- [facility] Please contact via Cumulocity first then can utilize Patient touch/VoceraEdge if needed 09/25/24 7:08 AM To find out which DIANE is on for the day please go to RxAdvance and use log in Skills Matter and search for [facility] Neurosurgery (DIANE and Phone Number is listed) JACQUELINE Vazquez 09/25/24 1307 * Margie Melissa MD - 09/25/2024 5:45 AM EDT Urology Progress Note 6 Chief complaint: Urinary retention Subjective: Patient resting in bed, no acute distress, no acute events overnight. Mentation has improved. S/p craniotomy for tumor resection on 5/7. Labs today: wbc 23.8, cr 0.8, UOP [...] last 7 days Lab Units 09/25/2441409/24/24 03309/23/24 1649 09/23/24 0701 POTASSIUM mmol/L 4.0 [...] 1.5 L, improving BRANDON, status post craniotomy on09/23/24 for a brain lesion. problem list: High [...] urological intervention indicated at this time Maintain Laexis catheter for at least 1 week after [...] trial prior to discharge or as outpatient. * Ned Machado MD - 09/24/2024 10:45 AM EDT Images from the original note [...] This note was completed using a voice retail field merchandiser system. Every effort was made to ensure accuracy. However, inadvertent computerized retail field merchandiser errors may be present. * Skye Lara MD - 09/24/2024 10:11 AM EDT Images from the original note were not included. [facility] INTERNAL MEDICINE [facility] - GEN 8 ICU [address] [facility] [id number] Hospital Medicine Progress Note Patient: Anupama Vasquez Date of : 1970 Room: [place] [address] PCP: FRED GRACIA APRN-HEAD OF DESIGN Admission date: 09/18/2024 11:59 PM Encounter date: [...] tumor removal. TECHNIQUE: * CT head was performedwithout intravenous contrast using the standard protocol. Automated [...] the right hemisphere which is again noted. Bilateralglobes, orbits appear unremarkable. Postoperative changes in the [...] No pneumothorax. Impression: No acute pulmonary process. Finalizedby Shen Farooq MD on 09/23/2024 12:23 PM [...] today as patient is more awake Arrhythmia [facility] Cardiology signed off- given preoperative clearance EKG completed Echocardiogram showing preserved LVEF with bqrd-hf-bbtbutlx mitral stenosis Maintain cardiac monitoring Buttock wound [...] in ICU per Neurosurgery for further frequent neurochecks JACQUELINE Hamilton 09/24/2024 10:11 AM [facility] Internal Medicine 7AM-7PM & 7PM-7AM: EpicChat or page through On-Call Finder. JACQUELINE Hamilton 09/24/24 0691 I, Skye Lara MD, personally performed the face to face diagnostic evaluation on this patient. I have reviewed the DIANE's History, Exam, and MDM and agree with the assessment and plan as written. * Margie Melissa MD - 09/24/2024 7:53 AM EDT Urology Progress Note 5 Chief complaint: Urinary [...] -- 90 18 98 % -- -- 09/23/242099 -- -- -- 93 19 97 % [...] 1.5 L, improving BRANDON, status post craniotomy on09/23/24 for a brain lesion. problem list: High [...] urinary retention 1.5 L with the acute kidneyinjury creatinine 15.68 improved with Alexis catheter with mild bilateral hydronephrosis ultrasound 09/19/2024 2. By radiology report concern for 4 mm nonobstructing right renal stone retroperitoneal udplnlbarl17/03/2025; no stone definitively CT 09/20/2024 Recommendations: 1. As above. Dr. Gunn taking over as hospitalists for our group starting tomorrow. Likely benefit long run from follow up at the [facility] office. . Thank you very much. I appreciate being asked to help with this patient's care. Enid Eaton Jr., M.D. [facility] [phone] * Chip Zarate, MOTORCOACH OPERATOR-HEAD OF DESIGN - 09/24/2024 6:50 AM EDT Images from the original note were not included. [facility] [address] [place] [address], [address] [place] [address] * NEUROSURGERY DAILY PROGRESS NOTE DATE:09/24/2024 PATIENT'S [...] Edward- [facility] Please contact via Sokratit first then can utilize Patient touch/VoceraEdge if needed 09/24/24 6:54 AM To find out which DIANE is on for the day please go to RxAdvance and use log in Skills Matter and search for [facility] (DIANE and Phone Number is listed) JACQUELINE Vazquez 09/24/241946 * DEISY Haines - 09/23/2024 12:05 PM EDT NUTRITION ADULT FOLLOW UP NUTRITION ASSESSMENT: Patient History: Brief Clinical Summary: past medical history significant for MS, who initially presented to [facility] from her rehab facility with complaints of altered mental status. Patient with BRANDON, acuteurine retention, found to have right temporal mass [...] 22 08/29/2024 Lab Results Component Value Date [id number] 517 09/19/2024 Lab Results Component Value Date FOLATE 13.1 09/19/2024 No results found for: VITD25 Comments (labs): reviewed Medications/ Parenteral: decadron, pepcid, remeron, senokot-s Current Facility-Administered Medications Medication Dose Route Frequency Provider Last Rate Last Admin acetaminophen (TYLENOL) tablet 650 mg 650 mg oral Q6H PRN MARCELLE Spencer 650 mg at 09/22/24 2123 Or acetaminophen (TYLENOL) 650 mg/20.3 mL solution [...] 4 mg 4 mg intravenous Q6H FELTON Chip Zarate APRN-RUBINA 4 mg at09/23/24 0621 dextrose (GLUTOSE) 40 % gel 15 [...] nasogastric Nightly JACQUELINE Hamilton 15 mg at 09/22/244 polyethylene glycol (GLYCOLAX) packet 17 g 17 [...] 2 tablet oral PRN Steffanie Lozano APRN-RUBINA Nutrition Focused Physical Findings +NG, mentation improving, BM 5/6 Skin (per nursing flow sheets): Skin Color: Creswell (09/22/241939) Skin Temp: Dry; Cool (09/22/241939) Wound (per nursing flow sheets): Wound 09/19/24 Skin Tear Thigh Anterior;Left-Site Assessment: Unable to assess (dressing in place) (09/23/24 041) Wound 09/19/24 Pressure Injury Buttocks Left-Site Assessment: Unable to assess (dressing in place) (09/23/24 0410) Gastrointestinal (per nursing flow sheets): Abdomen Assessment: [...] oz) Admit Weight: 119.4kg (Bed Scale, 09/19/24) Orwell Body Weight: 61.4kg Weight Changes: 8.5kg loss/3 months (7%), stable inpatient +/- 2kg Current Body Mass Index: Body mass index is 41.7 kg/m . Comparative Standards: Estimated Energy Needs: 4971-7142 kcals daily. Method and weight used: 28-32 kcal/kg IBW Estimated Protein Needs: 74-123 grams daily. Method and weight used: 1.2-2g protein/kg IBW Estimated Fluid Needs: 8143-3404 ml daily. Method weight used: 28-32 ml/kg [...] Parker RD, LD Clinical Dietitian Direct Line * Keyanna Perrin MD - 09/23/2024 10:56 AM EDT Images from the original note [...] cm left kidney of 14.0 cm with right- sided kidney stone with mild hydronephrosis on the right and left side. From September of 2024 showing negative MAGI negative MPO and PR3 antibody, normal complements, negative anti-GBM, CPK was 18, urine dipstick revealed 100 mg/dL protein moderateblood fractional excretion of sodium was 5.2% and random urine protein to creatinine ratio was 1.6 grams/gram. SPEP pending. Acute urine retention Right temporal 4.1cm brain mass with yoacr-se-wlfs 60 mm shift with surrounding edema from September of 2024 Multiple sclerosis Left carpal tunnel release Left shoulder arthroscopy KEYANNA PERRIN MD NEPHR[facility]Y [facility] ANY QUESTIONS FEEL FREE TO CALL: 1. OFFICE [phone] 2. ANSWERING SERVICE:[phone] YOU CAN CONTACT ME THROUGH [employer] SECURE CHAT DURING THE DAYTIME HOURS, IF NO RESPONSE AFTER 5 MINUTES CALL THE ANSWERING SERVICE This note was created with the assistance of a speech-recognition program. Although the intention is to generate a document that actually reflects the content of the visit, no guarantees can be provided that every mistake has been identified and corrected by editing. * Ned Machado MD - 09/23/2024 10:28 AM EDT Images from the original note [...] 170.2 cm (5' 7.01 ) Wt 120.8 kg(266 lb 5.1 oz) LMP (LMP Unknown) SpO2 [...] completed yesterday with preserved LVEF. Did have avzb-mq-gsiycrfv mitral stenosis with a mean gradient of [...] This note was completed using a voice retail field merchandiser system. Every effort was made to ensure accuracy. However, inadvertent computerized retail field merchandiser errors may be present. * Skye Lara MD - 09/23/2024 10:00 AM EDT Images from the original note were not included. [facility] INTERNAL MEDICINE [facility] - GEN 9 ACUTE [address] [facility] [address] Hospital Medicine Progress Note Patient: Anupama Vasquez [...] 170.2 cm (5' 7.01 ) Wt 120.8 kg(266 lb 5.1 oz) LMP (LMP Unknown) SpO2 [...] systolic excursion. Mitral Valve: There is trace re gurgitation. There is moderate stenosis. The mean gradient [...] EKG completed Echocardiogram showing preserved LVEF with gqjq-sk-hxbyprgh mitral stenosis Maintain cardiac monitoring Buttock wound [...] under neurosurgery. JACQUELINE Hamilton 09/23/2024 10:00 AM [facility] Internal Medicine 7AM-7PM & 7PM-7AM: EpicChat or page through On-Call Finder. JACQUELINE Hamilton 09/23/24 7807 I, Skye Lara MD, personally performed the face to face diagnostic evaluation on this patient. I have reviewed the DIANE's History, Exam, and MDM and agree with the assessment and plan as written. * Mynor Vargas, [facility] - 09/23/2024 8:40 AM EDT [facility] Department of Pharmacy Pharmacy-Physician Communication Anupama Vasquez ( ) qualifies for stress ulcer prophylaxis discontinuation per [facility] Policy. Famotidine IV has been selected for [...] not appropriate, please re-order the medication and selectthe Dispense As Written (JOSHUA) order indication, or an indication for use besides SUP. Thank you, Mynor Vargas RPH * Kenya Pastrana RN - 09/22/2024 8:38 PM EDT Images from the original note [...] Thank you, Kenya Pastrana RN Rapid Response: [facility] * Keyanna Perrin MD - 09/22/2024 4:01 PM EDT Images from the original note were not included. Nephrology Daily Progress Note The events of last night reviewed, chart and all new entries , new tests reviewed Impression/Plan: Acute renal failure, resolved Right temporal mass measuring 4.1 cm, on Aprad, neurosurgery planning resection on Saturday Acute urine [...] last 7 days Lab Units 09/22/24 0609/21/24 0230 09/20/24 0259 MAGNESIUM mg/dL 1.9 1.8 1.8 Lab Results Component Value Date CALCIUM 9.0 09/22/2024 Lab Results Component Value Date IRON 56 09/19/2024 TIBC 309 09/19/2024 FERRITIN 130 09/19/2024 Problem list Acute kidney injury secondary to acute urine retention from September of 2024. Renal ultrasound revealed right kidney of 10.6 cm left kidney of 14.0 cm with right- sided kidney stone with mild hydronephrosis on the right and left side. From September of 2024 showing negative MAGI negative MPO and PR3 antibody, normal complements, negative anti-GBM, CPK was 18, urine dipstick revealed 100 mg/dL protein moderateblood fractional excretion of sodium was 5.2% and random urine protein to creatinine ratio was 1.6 grams/gram. SPEP pending. Acute urine retention Right temporal 4.1cm brain mass with owgyl-lm-nlsx 60 mm shift with surrounding edema from September of 2024 Multiple sclerosis Left carpal tunnel release Left shoulder arthroscopy KEYANNA PERRIN MD NE[facility]Y [facility] ANY QUESTIONS FEEL FREE TO CALL: 1. OFFICE [phone] 2. ANSWERING SERVICE:[phone] YOU CAN CONTACT ME THROUGH [employer] SECURE CHAT DURING THE DAYTIME HOURS, IF NO RESPONSE AFTER 5 MINUTES CALL THE ANSWERING SERVICE This note was created with the assistance of a speech-recognition program. Although the intention is to generate a document that actually reflects the content of the visit, no guarantees can be provided that every mistake has been identified and corrected by editing. * Skye Lara MD - 09/22/2024 10:40 AM EDT Images from the original note were not included. [facility] INTERNAL MEDICINE [facility] - GEN 9 ACUTE [address] [facility] [address] Hospital Medicine Progress Note Patient: Anupama Vasquez Date of : 1970 Room: [place] [address] PCP: FRED GRACIA APRN-RUBINA Admission date: 09/18/2024 [...] 170.2 cm (5' 7.01 ) Wt 118.7 kg(261 lb 11 oz) LMP (LMP Unknown) SpO2 [...] Hamilton 09/22/2024 10:40 AM [facility] Internal Medicine 7AM-7PM & 7PM-7AM: EpicChat or page through On-Call Finder. JACQUELINE Hamilton 09/22/24 1648 JACQUELINE Hamilton 09/22/24 1650 I, Skye Lara MD, personally performed the face to face diagnostic evaluation on this patient. I have reviewed the DIANE's History, Exam, and MDM and agree with the assessment and plan as written. * He Gutierrez RN - 09/22/2024 10:17 AM EDT Images from the original note [...] Thank you, He Gutierrez RN Rapid Response: [facility] * Enid Eaton Jr., MD - 09/22/2024 8:26 AM EDT Urology Progress Note 3 Chief complaint: Urinary [...] 104/66 -- -- 88 -- -- -- 09/21/242003 119/72 36.8 C (98.2 F) Oral 84 [...] 4 mm nonobstructing right renal stone retroperitoneal rtgucaztrs08/03/2025; no stone definitively CT 09/20/2024 Recommendations: 1. As above 2. Craniotomy plan for tomorrow. We will plan to return to see the patient . Let us know ifyou need further help in the interim otherwise.. Thank you very much. I appreciate being asked to help with this patient's care. Enid Eaton Jr., M.D. [facility] [phone] * Mynor Vargas [facility] - 09/22/2024 7:35 AM EDT Images from the original note [...] Component Value Units Date/Time Blood culture #2 [[id number]] Collected: 09/20/24 0733 Specimen: Blood, Venous Updated: 09/22/24 07 CULTURE RESULTS NO GROWTH 2 DAYS Narrative: Suboptimal volume of blood collected, Results may be affected. Blood culture #1 [[id number]] Collected: 09/20/24 0729 Specimen: Blood, Venous Updated: 09/22/24 07 CULTURE RESULTS NO GROWTH 2 DAYS Narrative: Suboptimal volume of blood collected, Results may be affected. Blood culture [[id number]] (Abnormal) Collected: 09/19/24 0123 Specimen: Blood, Venous Updated: 09/21/24 1946 CULTURE RESULTS Staphylococcus, coagulase negative Staphylococcus, coagulase negative GRAM STAIN Gram positive cocci in clusters Narrative: Suboptimal volume of blood collected, Results may be affected. BLOOD CULTURE IDENTIFICATION PANEL [[id number]] (Abnormal) Collected: 09/19/24 0123 Specimen: Blood, Venous Updated: 09/19/24 2031 Staphylococcus epidermidis PCR Detected mecA/C gene PCR Detected (Methicillin Resistance) Blood culture [[id number]] Collected: 09/19/24 0026 Specimen: Blood, Venous Updated: 09/22/24 0101 CULTURE RESULTS NO GROWTH 3 DAYS Concurrent Antibiotics: Anti-infectives (From admission, onward) Start Dose/Rate Route Frequency Ordered Stop 09/22/24 0800 vancomycin (VANCOCIN) IVPB 1750 mg in 500 mL sodium chloride 0.9% (CMPD premix) 1,750 mg 268 mL/hr over 120 Minutes intravenous Once 09/22/24 0731 09/19/242100 vancomycin (VANCOCIN) IVPB Dosed by Levels [...] Thank you for consulting. Mynor Vargas RPH * Laura Gore APRN-HEAD OF DESIGN - 09/21/2024 3:31 PM EDT Images from the original note were not included. [facility] [address] [place] [address], [address] [place] [address] * NEUROSURGERY DAILY PROGRESS NOTE DATE:09/21/2024 PATIENT'S [...] day please go to ON-Call Finder in [employer] or RxAdvance and use log in Skills Matter and search for [facility] Neurosurgery JACQUELINE Roth 09/21/24 1602 * Andrae Chisholm PharmD - 09/21/2024 1:11 PM EDT Images from the original note [...] Component Value Units Date/Time Blood culture #2 [[id number]] Collected: 09/20/24 0733 Specimen: Blood, Venous Updated: 09/21/24 1151 CULTURE RESULTS NO GROWTH 1 DAY Narrative: Suboptimal volume of blood collected, Results may be affected. Blood culture #1 [[id number]] Collected: 09/20/24 0729 Specimen: Blood, Venous Updated: 09/20/24 0729 Blood culture [[id number]] (Abnormal) Collected: 09/19/24 0123 Specimen: Blood, Venous Updated: 09/20/24 1833 CULTURE RESULTS Culture in progress GRAM STAIN Gram positive cocci in clusters Narrative: Suboptimal volume of blood collected, Results may be affected. BLOOD CULTURE IDENTIFICATION PANEL [[id number]] (Abnormal) Collected: 09/19/24 0123 Specimen: Blood, Venous Updated: 09/19/24 2031 Staphylococcus epidermidis PCR Detected mecA/C gene PCR Detected (Methicillin Resistance) Blood culture [[id number]] Collected: 09/19/24 0026 Specimen: Blood, Venous Updated: 09/21/24 0101 CULTURE RESULTS NO GROWTH 2 DAYS Concurrent Antibiotics: Anti-infectives (From admission, onward) Start Dose/Rate Route Frequency Ordered Stop 09/19/242100 vancomycin (VANCOCIN) IVPB Dosed by Levels intravenous Dosed by Levels 09/19/242100 Recent Vancomycin Serum Concentrations: Results from last 7 days Lab Units 09/21/24 1152 09/20/246 VANCOMYCIN ug/mL 16.0 10.0 Indication: bacteremia Goal [...] Thank you for consulting. Andrae Chisholm PharmD * Gumaro Okeefe, DO - 09/21/2024 12:56 PM EDT Images from the original note [...] cm left kidney of 14.0 cm with right- sided kidney stone with mild hydronephrosis on the right and left side. From September of 2024 showing negative MAGI negative MPO and PR3 antibody, normal complements, negative anti-GBM, CPK was 18, urine dipstick revealed 100 mg/dL protein moderateblood fractional excretion of sodium was 5.2% and random urine protein to creatinine ratio was 1.6 grams/gram. SPEP pending. Acute urine retention Right temporal 4.1cm brain mass with tonrv-ue-hkes 60 mm shift with surrounding edema from September of 2024 Multiple sclerosis Left carpal tunnel release Left shoulder arthroscopy VITAL SIGNS TREND: Vitals: 09/21/24 0900 09/21/24 1000 09/21/24 1100 09/21/24 1200 BP: 139/80 132/78 124/83 133/78 Pulse: 76 85 76 90 Resp: 19 20 22 Temp: 36.8 C (98.2 F) [...] from last 7 days Lab Units 09/21/24 02309/20/24195509/20/24 1114 09/20/24 02509/19/24195709/19/24 1223 09/19/24 0412 09/19/24 0026 SODIUM mmol/L [...] 7 days Lab Units 09/21/24 0230 09/20/24 02509/19/24 0446 09/19/24 0026 WBC x10E9/L 12.2* [...] Nightly vancomycin, , intravenous, Dosed by Levels GUMARO OKEEFE D.O. For questions please call: Answering Service at [phone] Or Office at [phone] This note was created with the assistance of a speech-recognition program. Although the intention is to generate a document that actually reflects the content of the visit, no guarantees can be provided that every mistake has been identified and corrected by editing. * Enid Eaton Jr., MD - 09/21/2024 8:19 AM EDT Images from the original note were not included. Jr. Nadia, Yasmin Mcgee, Jr. Wesly, Yasmin Carreno, Madhav Quinones M.D., Eliazar Lockwood M.D., Jose [...] last 7 days Lab Units 09/21/24 02309/20/24 1956 09/20/24 [...] Results from last 7 days Lab Units 09/21/2422909/20/2425809/19/24 0446 WBC x10E9/L [...] is mild pelvocaliectasis both kidneys, no significant dilatationof either ureter. No visible distal obstructing process. 2. Splenomegaly. 3. Bladder wall thickening, please correlate with urinalysis. Impression: High volume urinary retention of 1.5 L associated with BRANDON and bilateral mild hydro ureteral nephrosis. Bladder wall thickening on CT Plan: Maintain Alexis for least 1 week Creatinine responding well to catheter drainage CT without evidence of kidney stones or obstructive process. MARCELLE MARCH 8:19 AM 09/21/2024 MARCELLE March 09/21/24 0822 I, ENID EATON JR, MD, [...] 4 mm nonobstructing right renal stone retroperitoneal tbdnudoctu16/03/2025; no stone definitively CT 09/20/2024 Recommendations: 1. [...] this patient's care. Enid Eaton Jr., M.D. [facility] [phone] * Mynor Vargas [facility] - 09/20/2024 9:25 PM EDT Images from the original note [...] Component Value Units Date/Time Blood culture #2 [[id number]] Collected: 09/20/24 07 Specimen: Blood, Venous Updated: 09/20/24732 Blood culture #1 [[id number]] Collected: 09/20/24 0729 Specimen: Blood, Venous Updated: 09/20/24 0729 Blood culture [[id number]] (Abnormal) Collected: 09/19/24 0123 Specimen: Blood, Venous Updated: 09/20/24 1833 CULTURE RESULTS Culture in progress GRAM STAIN Gram positive cocci in clusters Narrative: Suboptimal volume of blood collected, Results may be affected. BLOOD CULTURE IDENTIFICATION PANEL [[id number]] (Abnormal) Collected: 09/19/24 0123 Specimen: Blood, Venous Updated: 09/19/24 203 Staphylococcus epidermidis PCR Detected mecA/C gene PCR Detected (Methicillin Resistance) Blood culture [[id number]] Collected: 09/19/24 0026 Specimen: Blood, Venous Updated: 09/20/24 1301 CULTURE RESULTS NO GROWTH AT 36 HOURS Concurrent Antibiotics: Anti-infectives (From admission, onward) Start Dose/Rate Route Frequency Ordered Stop 09/20/24 2130 vancomycin (VANCOCIN) IVPB 1500 mg in 500 [...] Thank you for consulting. Mynor Vargas RPH * Chip Zarate APRN-[facility] - 09/20/2024 2:20 PM EDT BRIEF NEUROSURGERY NOTE: Patient was off the [...] Edward- [facility] Please contact via Cumulocity first then can utilize Patient touch/VoceraEdge if needed 09/20/24 2:22 PM To find out which DIANE is on for the day please go to RxAdvance and use log in Skills Matter and search for [facility] Neurosurgery (DIANE and Phone Number is listed) JACQUELINE Vazquez 09/20/24 1422 * Hiram Jones MD - 09/20/2024 9:28 AM EDT Images from the original note [...] Component Value Units Date/Time Blood culture #2 [[id number]] Collected: 09/20/24732 Specimen: Blood, Venous Updated: 09/20/24732 Blood culture #1 [[id number]] Collected: 09/20/24728 Specimen: Blood, Venous Updated: 09/20/24728 Blood culture [[id number]] (Abnormal) Collected: 09/19/24122 Specimen: Blood, Venous Updated: 09/19/242034 CULTURE RESULTS NO GROWTH <24 HRS GRAM STAIN Gram positive cocci in clusters Narrative: Suboptimal volume of blood collected, Results may be affected. BLOOD CULTURE IDENTIFICATION PANEL [[id number]] (Abnormal) Collected: 09/19/24 012 Specimen: Blood, Venous Updated: 09/19/242030 Staphylococcus epidermidis PCR Detected mecA/C gene PCR Detected (Methicillin Resistance) Blood culture [[id number]] Collected: 09/19/24 0026 Specimen: Blood, Venous Updated: 09/20/24 0101 CULTURE RESULTS NO GROWTH 1 DAY Physical [...] Brain CT from September 18 outside facility [facility] PROCEDURE: Multiplanar multisequence images performed through the brain without contrast utilizing synaptive protocol for surgical planning. FINDINGS: Right temporal mass midline shift to the opposite side measuring 14 mm. Extensive surrounding vasogenic edema and mass effect partially compressing the right lateral ventricle and completely compressing the third ventricle with dilatationof the left lateral ventricle. The lesion shows heterogeneous intense enhancement and measures 44.4mm superior to inferior by 46.4 mm anterior to posterior and 38.7 mm medial to lateral Extensive yajaira ceptibility artifacts within the process suggesting some calcification or hemorrhage No extra-axialfluid collections. No MR evidence for an infarct. Diffusion tensor imaging utilized for delineatingthe associated white matter tracts. IMPRESSION: Right temporal lobe lesion detailed above for surgical planning. 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 [...] follow with you. Enid Eaton Jr., M.D. [facility] [phone] * Miriam Church MD - 09/20/2024 7:51 AM EDT Images from the original note were not included. Nephrology Daily Progress Note INTERVAL HISTORY: Continues to be confused and encephalopathic. Mumbling incoherently. On oxygen via nasal cannula at2 liters/minute. VITAL SIGNS TREND: Vitals: 09/20/24 0400 [...] 09/19/24 1958 09/19/24 1223 09/19/24 0412 09/19/24 0026 SODIUM [...] cm left kidney of 14.0 cm with right- sided kidney stone with mild hydronephrosis on the right and left side. From September of 2024 MAGI anti MPO anti PR3 and anti-GBM are pending, serumprotein electrophoresis is pending, C3 was 196 and C4 was 42, CPK was 18, urine dipstick revealed 100 mg/dL protein moderate blood fractional excretion of sodium was 5.2% and random urine protein to creatinine ratio was 1.6 grams/gram. Acute urine retention Right temporal 4.1cm brain mass with sgxkk-ui-epui 60 mm shift with surrounding edema from [...] For questions please call: Answering Service at [phone] Or Office at [phone] This note was created with the assistance of a speech-recognition program. Although the intention is to generate a document that actually reflects the content of the visit, no guarantees can be provided that every mistake has been identified and corrected by editing. * Steffanie Lozano APRN-HEAD OF DESIGN - 09/20/2024 6:27 AM EDT Images from the original note were not included. [facility] Progress Note Name: Anupama [...] of care discussed with Dr.case Steffanie Lozano MOTORCOACH OPERATOR HEAD OF DESIGN Acute Care Nurse Practitioner [facility] Please feel free to contact me via Patient Touch. Subjective No acute events reported overnight. MRI brain completed which shows right temporal mass, 14 mm withvasogenic edema and mass effect compressing the right lateral and 3rd ventricle. 1/2 blood culturespositive strep epi, methicillin- resistant was started on vancomycin. Creatinine trending down post Alexis catheter and hypotonic fluids. Patient seen and examined at bedside. Patient awakens to voice but falls back to sleep quickly. Shehas left-sided weakness. Vital Signs Temp: [36.8 C [...] days Lab Units 09/20/24 0259 09/19/24 0412 09/19/247 09/19/2425 BEDSIDE GLUCOSE mg/dL -- -- 110* -- GLUCOSE mg/dL 149* 107* -- 103* Microbiology Results Procedure Component Value Units Date/Time Blood culture [[id number]] (Abnormal) Collected: 09/19/24122 Specimen: Blood, Venous Updated: 09/19/242034 CULTURE RESULTS NO GROWTH <24 HRS GRAM STAIN Gram positive cocci in clusters Narrative: Suboptimal volume of blood collected, Results may be affected. BLOOD CULTURE IDENTIFICATION PANEL [[id number]] (Abnormal) Collected: 09/19/24122 Specimen: Blood, Venous Updated: 09/19/242030 Staphylococcus epidermidis PCR Detected mecA/C gene PCR Detected (Methicillin Resistance) Blood culture [[id number]] Collected: 09/19/24 002 Specimen: Blood, Venous Updated: 09/20/24 010 CULTURE RESULTS NO GROWTH 1 DAY Ventilator [...] 75 mL/hr (09/20/24 0558) JACQUELINE Hughes 09/20/24 0940 Cosigned by Mynor Watkins MD at 09/20/2024 9:58 AM EDT * Carolina Schulz [facility] - 09/19/2024 9:08 PM EDT Images from the original note [...] Procedure Component Value Units Date/Time Blood culture [[id number]] (Abnormal) Collected: 09/19/24122 Specimen: Blood, Venous Updated: 05/03/25 2035 CULTURE RESULTS NO GROWTH <24 HRS GRAM STAIN Gram positive cocci in clusters Narrative: Suboptimal volume of blood collected, Results may be affected. BLOOD CULTURE IDENTIFICATION PANEL [[id number]] (Abnormal) Collected: 09/19/24 0123 Specimen: Blood, Venous Updated: 09/19/242030 Staphylococcus epidermidis PCR Detected mecA/C gene PCR Detected (Methicillin Resistance) Blood culture [[id number]] Collected: 09/19/24 0026 Specimen: Blood, Venous Updated: [...] Thank you for consulting. Carolina Schulz RPH * Mynor Mina RPH - 09/19/2024 4:22 AM EDT Pharmacist-Provider Communication Please note the dose of famotidine 20mg iv bid has been changed per the [facility]- approved renal dosing policy. Current CrCl = 6 mL/min. Accordingly, the dose of famotine 20mg iv bid was changed to famotidine 20mg iv q48hr. If there are any issues or concerns, please contact central pharmacy at [phone]. Thank you, Ayush Mina Jr. [facility]. documented in this encounterBlanch[facility] HospitalFlypaper [id number] Hospital Discharge instructions* Discharge Instructions* Laura Gore, MOTORCOACH OPERATOR-HEAD OF DESIGN - 09/26/2024 2:57 PM EDT Neurosurgery Discharge [...] narcotic overdose. To combat the Opioid epidemic, Itis a requirement and best practice too prescribe [...] ointments to your incision Other Instructions: Call [facility] Neurosurgery with any questions, . documented in this encounterCommunity [facility] History and physical note* Jair Espinal MD - 09/23/2024 1:11 PM EDT HISTORY AND PHYSICAL INTERVAL NOTE: Anupama Vasquez 1970 [id number] H&P reviewed. The patient was examined and there are no changes to the H&P. Jair Espinal MD Source Note - JACQUELINE Roth - 09/21/2024 3:31 PM EDT Images from the original note were not included. [facility] [address] [place] [address], [address] [place] [address] * NEUROSURGERY DAILY PROGRESS NOTE DATE:09/21/2024 PATIENT'S [...] day please go to ON-Call Finder in [employer] or Rx[employer]vance and use log in Skills Matter and search for [facility] JACQUELINE Roth 09/21/24 2531 JACQUELINE Roth 09/23/24 1311 * JACQUELINE Ervin - 09/19/2024 4:17 AM EDT CRITICAL CARE HISTORY & PHYSICAL Name: Anupama Vasquez Date: 09/19/2024 Length of Stay: 0 day(s) Chief Complaint Patient presents with Altered Mental Status Evaluation of Abnormal Diagnostic Test HISTORY OF PRESENT ILLNESS: Anupama Vasquez is a 54 y.o. year-old female with a past medical history significant for MS, who initially presented to [facility] from her rehab facility with complaints of altered mental status. Per chart review patient was recently treated for rhabdomyolysis. Her initial workup was significant for hyperkalemia with a potassium of 5.5, BRANDON with creatinine of 15.68, BUN 133, bicarb 20 and leukocytosis with WBC 12.7, also as CT head was obtained and demonstrated a 4.1 cm right temporal brain mass with iudch-jn-cwll 60 mm shift which includes surrounding edema [...] Medical History: Diagnosis Date MS (multiple sclerosis) ([facility]) 2012 Past Surgical History: Procedure Laterality Date CARPAL TUNNEL RELEASE Left SHOULDER ARTHROSCOPY W/ ROTATOR CUFF REPAIR Left Review of Systems Medications Prior to Admission Medication Sig Dispense Refill Last Dose/Taking acetaminophen (TYLENOL) 325 mg tablet Take 2 tablets (650 mg total) by mouth every 6 (six) hours asneeded for pain. busPIRone (BUSPAR) 7.5 mg tablet [...] 1 tablet (15 mg total) on tonguenightly. famotidine, 20 mg, intravenous, Q48H [START ON [...] Resource Strain: High Risk (06/04/2023) Received from [facility] Healthcare Overall Financial Resource Strain (CARDIA) [...] No Stress Concern Present (06/04/2023) Received from [facility] [place] [facility] Occupational Health - Occupational Stress Questionnaire Feeling of Stress : Only a little Social Connections: Moderately Integrated (06/04/2023) Received from [facility] Social Connection and Isolation Panel [NHANES] Frequency of Communication with Friends and Family: Twice a week Frequency of Social Gatherings with Friends and Family: Once a week Attends Alevism Services: 1 to 4 times per year [...] Procedure Component Value Units Date/Time Blood culture [[id number]] Collected: 09/19/24122 Specimen: Blood, Venous Updated: 09/19/24134 Blood culture [[id number]] Collected: 09/19/2425 Specimen: Blood, Venous Updated: 09/19/2444 [...] Procedure Component Value Units Date/Time Blood culture [[id number]] Collected: 09/19/24122 Specimen: Blood, Venous Updated: 09/19/24134 Blood culture [[id number]] Collected: 09/19/2425 Specimen: Blood, Venous Updated: 05/03/25 0045 Lines/Drains CVC Triple Lumen 09/19/24 Right Internal Jugular (Active) Precautions Standard precautions;Hand hygiene;Gloves 09/19/24 040 Lumen 1 Proximal 09/19/24 040 Lumen 1 Status Blood return noted;Saline locked;Flushed;Alcohol sponge cap changed;Connections checked/tightened 09/19/24 040 Lumen 1 Needleless Cap Change Completed 09/19/24 040 Lumen 1 Needleless Cap Change Due 09/23/24 09/19/24 040 Lumen 2 Medial 09/19/24 040 Lumen 2 Status Blood return noted;Saline locked;Flushed;Alcohol sponge cap changed;Connections checked/tightened 09/19/24 040 Lumen 3 Distal 09/19/24399 Lumen 3 Status Blood return noted;Flushed;Infusing;Alcohol sponge cap changed;Connections checked/tightened 09/19/24 040 Site Assessment Clean;Dry;Intact 09/19/24399 Dressing Type Occlusive;Transparent with CHG gel 09/19/24399 Dressing Status Clean;Dry;Intact 09/19/24399 Dressing Intervention Dressing changed 09/19/24399 Line Necessity Peripherally incompatible solution 09/19/24399 Line Necessity Reviewed With crit care 09/19/24399 Patient Tolerance of Line Care Tolerated well 09/19/24 040 Central Line Dressing Change Due (Non-Gauze) 09/26/24 09/19/24 040 Peripheral IV 09/19/24 Right Forearm (Active) Line Status Blood return noted;Saline locked;Flushed;Alcohol sponge cap changed;Connections checked/tightened 09/19/24399 Site Assessment Clean;Intact;Dry 09/19/24399 Dressing Type Occlusive;Transparent 09/19/24 040 Dressing Status Clean;Dry;Intact 09/19/24399 Dressing Intervention Initial dressing 09/19/24399 Dressing Change Due (Non-Gauze) 09/26/24 09/19/24399 Urinary Catheter 09/19/24 (Active) Catheter Status Patent 09/19/246 Site Assessment Clean 09/19/246 Collection Container Leg bag 09/19/246 Securement Method Securing device (Describe) 09/19/246 Tamper Evident Seal Intact Yes 09/19/246 Urine Color Yellow/straw 05/03/25 0312 Urine Appearance Cloudy 09/19/24 0312 Output [...] 4.1 cm right temporal brain mass with xrqcd-im-dilm 60 mm shift which includes surrounding edema 4.1 cm right temporal brain mass with 6 mm glpzg-pn-gray midline shift - closely monitor neuro status [...] Dr. Jung, further orders to follow. MICHELLE GONZALEZ APRN-RUBINA Acute Care Nurse Practitioner [facility] Please feel free to contact me via Patient Touch Critical Care Time: 39 minutes. Non-contiguous time with attending MD, excluding procedures. [] This patient, with a critical illness, requires constant monitoring and titration of care by a Critical Care Loop Tender. Failure to do so may result in further organ system failure, imminent deterioration, or . JACQUELINE Ervin 09/19/24 0535 Cosigned by Sheila Jung MD at 09/19/2024 6:12 AM EDT documented in this encounterCommunity Regional Medical Center05-07-2025 NoteXR CHEST 1 VW History: Preoperative exam. History of asthma. Procedure: Chest AP portable upright Comparison: 10/06/2024 Findings: The heart and lungs show no acute findings, and the mediastinum and gema are grossly negative . No pneumothorax. Impression: No acute pulmonary process. Finalized by Shen Farooq MD on 09/23/2024 12:23 [facility] 09-22-2024 Consult note* Melo Gill PA-C - 09/22/2024 11:32 AM EDT Associated Order(s): IP CONSULT TO CARDIOLOGY Images from the original note were not included. [facility] [address] [place] [address] HISTORY & PHYSICAL / CONSULT NOTE Anupama [...] showed 4.1 cm temporal brain mass with rightto left 60 mm shift with surrounding edema. Pt was transferred to [facility]. Pt still has altered mental status. [...] injection 4 mg 4 mg intravenous Q6H [facility] JACQUELINE Vazquez 4 mg at09/22/24 0609 dextrose (GLUTOSE) 40 % gel 15 [...] injection 5,000 Units 5,000 Units subcutaneous Q8H [facility] JACQUELINE Roth 5,000 Units at 09/22/24 0608 [...] by Levels intravenous Dosed by JACQUELINE Cassidy Home Meds: Prior to Admission medications Medication Sig Start Date End Date Taking? Authorizing Provider acetaminophen (TYLENOL) 325 mg tablet Take 2 tablets (650 mg total) by mouth every 6 (six) hours asneeded for pain. Not In System Ref Prov [...] 1 tablet (15 mg total) on tonguenightly. Not In System Ref Prov Social History: [...] Finalized by Gian Gilbert MD on 08/28/2024 10:58AM EKG: TELEMETRY: tachycardia PHYSICAL EXAM Admission Weight: [...] sinus tachycardia. Will discuss with attending. MELO IGLL PA-C This note was completed using a voice retail field merchandiser system. Every effort was made to ensure accuracy. However, inadvertent computerized retail field merchandiser errors may be present. Melo Gill PA-C 09/22/24 1138 Cosigned by Ned Machado MD at 09/22/2024 1:27 PM EDT * Skye Lara MD - 09/21/2024 11:10 AM EDT Images from the original note were not included. [facility] - [facility] 9 ICU [address] [facility] [id number] Hospital Medicine Consultation Patient: Anupama Vasquez Date of : 1970 Room: [place] [address] PCP: JACQUELINE LUNA Admission date: 09/18/2024 11:59 PM Hospital Day: 4 Encounter date: 09/21/24 Hospital Day: 4 SUBJECTIVE Reason for Consult: Assume Primary on transfer from ICU Referring Physician/Team: Neurosurgery/Critical Care Anupama Vasquez is a 54 y.o. female with a past medical history including MS, hypertension, hyperlipidemia, obstructive sleep apnea, obesity who initially presented to [facility] via EMS 09/18/2024 from her extended care facility for altered mental status. Initial lab work at [facility] showed hyp erkalemia of 5.5 creatinine 15.68, BUN 133, bicarb 20, and leukocytosis of 12.7. She was found to have over 2 L in her bladder and a Alexis catheter was inserted. The central line was also placed thattime due to difficult IV access. She was found to have altered mental status at that time as well therefore CT of the brain was obtained which revealed a 4.1 cm right temporal brain mass with qmdtq-tu-xpfs shift and surrounding edema. Case was discussed with neurosurgery and patient was transferredER to ER [facility] to [facility] for further neurosurgery evaluation. She was [...] her name, that she was in the hospitalhowever she was unable to tell me the date, year, current president, or why she was in the hospital. She was very drowsy and quickly falls back to sleep during the exam. On chart review, noted patient was treated under our service at [facility] in August for nontraumatic rhabdomyolysis. At that time she was living at home independently however conditions reported as poor including floor is covered in urine and feces. Appears patient at that time had not been getting out of her chair and has been voiding and defecating in her chair. She was unable tocare for herself and would have some minimal [...] every 6 (six) hours asneeded for pain. Not In System Ref Prov [...] for 30 days. 09/01/24 10/01/24 Tristen Lombardi APRN-HEAD OF DESIGN mirtazapine (REMERON CANDI-TAB) 15 mg disintegrating tablet Dissolve 1 tablet (15 mg total) on tonguenightly. Not In System Ref Prov Code Status: Full Code Past Medical History: Patient has a past medical history of MS (multiple sclerosis) ([facility]) (2012). Past Surgical History: Patient [...] of either ureter. No visible distal obstructing process.No suspicious renal mass. GI TRACT: No bowel obstruction. Appendix is normal. Colonic diverticulosis without inflammatory change. PELVIC ORGANS/BLADDER: Containing Alexis catheter, bladder wall thicken ing may be present. No bladder stone. PERITONEUM/RETROPERITONEUM: [...] Brain CT from September 18 outside facility [facility] PROCEDURE: Multiplanar multisequence images performed through the brain without contrast utilizing synaptive protocol for surgical planning. FINDINGS: Right temporal mass midlineshift to the opposite side measuring 14 mm. Extensive surrounding vasogenic edema and mass effect partially compressing the right lateral ventricle and completely compressing the third ventricle withdilatation of the left lateral ventricle. The lesion shows heterogeneous intense enhancement and measures 44.4 mm superior to inferior by 46.4 mm anterior to posterior and 38.7 mm medial to lateral Ex tensive susceptibility artifacts within the process suggesting some calcification or hemorrhage No extra-axial fluid collections. No MR evidence for an infarct. Diffusion tensor imaging utilized for delineating the associated white matter tracts. IMPRESSION: Right temporal lobe lesion detailed above for surgical planning. 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 Metastasis can also present in this fashion. Finalized by Juan Antonio Lindquist MD on 09/20/2024 7:17 AM Ultrasound retroperitoneal complete Result Date: 09/19/2024 Narrative: US RETROPERITONEAL COMPLETE HISTORY: Acute renal failure, renal size evaluation, rule out hydronephrosis. COMPARISON: None. TECHNIQUE: Grayscale and color Doppler sonographic images of theurinary bladder and both kidneys. FINDINGS: Right kidney: * 10.6 x 5.3 x 6.1 cm. Cortex: 0.7 cm. Normal echogenicity. * There is a 0.4 cm echogenic focus within the right renal pelvis/proximal right ureter which demonstrates twinkle artifact, compatible with renal calculus. There is mild prominenceof the right renal pelvis which measures 1.2 cm and proximal ureter which measures 0.9 cm. Left kidney: * 14.0 x 4.6 x 5.6 cm. Cortex: 0.7 cm. Normal echogenicity. * Mild prominence of the left renalpelvis which measures up to 2.1 cm. No evidence of contour deforming mass or calculi. Alexis catheter noted within the decompressed bladder. IMPRESSION: * Right nephrolithiasis measuring 0.4 cm with mild right hydronephrosis. * Mild left hydronephrosis without visualized calculus. Approved by Resident Tk Najera MD on 09/19/2024 6:30 AM I, Mao Varner MD have personally reviewed the image(s)and agree with and/or edited the report Finalized by Mao Varner MD on 09/19/2024 6:[address] angiogram chest Result Date: 08/28/2024 Narrative: CLINICAL INFORMATION: Status post fall with injury to the left side of the chest.. elevated dimer TECHNIQUE: CT angiography of the chest with intravenous contrast. MIP reformats were generated on a separate workstation under concurrent physician supervision and reviewed to further defineanatomy and possible pathology. All CT scans at [...] for acute or suspicious pathology in the mvqet-oz-sttf. The trachea and bronchi are patent. No filling defects are identified. No suspicious pulmonary nodules or masses. Calcified and noncalcified pulmonary nodules are noted thelargest distinct pulmonary nodule in the right upper [...] JACQUELINE Hamilton 09/21/2024 3:26 PM [facility] 7AM-7PM & 7PM-7AM: EpicChat or page through On-Call Finder. JACQUELINE Hamilton 09/21/24 1546 I, Skye Lara MD, personally performed the face to face diagnostic evaluation on this patient. I have reviewed the DIANE's History, Exam, and MDM and agree with the assessment and plan as written. * Leyla DEISY Parker - 09/21/2024 10:32 AM EDTAssociated Order(s): IP CONSULT TO NUTRITION SERVICES NUTRITION ADULT INITIAL EVALUATION NUTRITION ASSESSMENT: Reason to be seen: TF management Patient History: Admit Diagnosis: Patient Active Problem List Diagnosis Non-traumatic rhabdomyolysis Weakness Generalized anxiety disorder with panic attacks Hyperlipidemia, acquired Multiple sclerosis ([facility]) LORENZO (obstructive sleep apnea) Primary hypertension Primary [...] Medical History: Diagnosis Date MS (multiple sclerosis) ([facility]) 2012 Past Surgical History: Past Surgical History: Procedure Laterality Date CARPAL TUNNEL RELEASE Left SHOULDER ARTHROSCOPY W/ ROTATOR CUFF REPAIR Left Social/ Cognitive/ Economic: readmitted from rehab facility Brief Clinical Summary: past medical history significant for MS, who initially presented to [facility] from her rehab facility with complaints of altered mental status. Patient with BRANDON, acuteurine retention, found to have right temporal mass [...] Results from last 7 days Lab Units 09/21/2422909/20/2425809/19/2441109/19/2440609/19/24 0026 BEDSIDE GLUCOSE mg/dL -- -- -- 110* -- GLUCOSE mg/dL 127* 149* 107* -- 103* Results from last 3 days Lab Units 09/21/2422909/20/2425809/19/24 0446 WBC x10E9/L 12.2* 8.9 9.2 HEMOGLOBIN g/dL 11.0* 11.0* 11.4* HEMATOCRIT % 33.6* 33.5* 34.9* PLATELETS X10E9/L 183 190 189 MCV fL 83 82 82 Results from last 3 days Lab Units 09/21/24 02309/20/24 1114 09/20/2425809/19/24 0412 MAGNESIUM mg/dL 1.8 -- [...] 22 08/29/2024 Lab Results Component Value Date [id number] 09/19/2024 Lab Results Component Value Date FOLATE 13.1 09/19/2024 No results found for: VITD25 Comments (labs): hypernatremia (intentional 145-150), creatinine elevated but improving Medications/ Parenteral: D2.5% at 50 ml/hr, decadeon, pepcid Medications Prior to Admission Medication Sig Dispense Refill Last Dose/Taking acetaminophen (TYLENOL) 325 mg tablet Take 2 tablets (650 mg total) by mouth every 6 (six) hours asneeded for pain. busPIRone (BUSPAR) 7.5 mg tablet [...] 1 tablet (15 mg total) on tonguenightly. Current Facility-Administered Medications Medication Dose Route Frequency [...] injection 4 mg 4 mg intravenous Q6H [facility] Chip Zarate APRN-HEAD OF DESIGN 4 mg at09/21/24 0616 dextrose (GLUTOSE) 40 % gel 15 g 15 g oral PRN MARCELLE Spencer dextrose 2.5 % in water, 1,000 mL infusion 50-150 mL/hr intravenous Continuous Steffanie Lozano APRN-RUBINA 50 mL/hr at 09/21/24 0426 50 mL/hr at 09/21/24 0426 dextrose 50 % in water (D50W) 50% solution 25 mL 25 mL intravenous PRN MARCELLE Spencer famotidine (PF) (PEPCID) injection 20 mg 20 mg intravenous Q48H MARCELLE Spencer 20 mg at 09/19/24 0851 glucagon HCL injection 1 mg 1 mg intramuscular PRN MARCELLE Spencer heparin (porcine) injection 5,000 Units 5,000 Units subcutaneous Q8H [facility] MARCELLE Spencer 5,000 Units at 09/21/24 0616 hydrALAZINE (APRESOLINE) injection 10 mg 10 mg intravenous Q6H PRN MARCELLE Spencer 10 mg at 09/20/242119 labetaloL (NORMODYNE,TRANDATE) injection 10 mg 10 mg intravenous Q4H PRN MARCELLE Spencer 10 mg at 09/20/24 203 levETIRAcetam (KEPPRA) IVPB 500 mg/100 mL in iso-osmotic sodium chloride (5 mg/mL premix) 500 mg intravenous Q12H Chip Zarate APRN-RUBINA Stopped at 09/21/24 0634 magnesium sulfate IVPB 2000 mg/50 mL in iso-osmotic water (40 mg/mL premix) 2,000 mg intravenous PRN Steffanie Lozano APRN-HEAD OF DESIGN Stopped at 09/21/24 0527 magnesium sulfate IVPB 4000 mg/100 mL in iso-osmotic water (40 mg/mL premix) 4,000 mg intravenous PRN Steffanie Lozano APRN-RUBINA polyethylene glycol (GLYCOLAX) packet 17 g 17 g oral Daily PRN MARCELLE Spencer potassium chloride (K-TAB,KLOR-CON) CR tablet 20-60 mEq 20-60 mEq oral PRN Steffanie Lozano APRN-RUBINA Or potassium chloride (KAYCIEL) 20 mEq/15 mL solution 20-60 mEq 20-60 mEq oral PRN Steffanie Lozano APRN-RUBINA Or potassium chloride IVPB 10 mEq/100 mL in water (0.1 mEq/mL premix) 10 mEq intravenous PRN Steffanie Lozano APRN-RUBINA sennosides-docusate sodium (SENOKOT-S) 8.6-50 mg 2 tablet 2 tablet oral Nightly MARCELLE Spencer sodium phosphate 20 mmol in sodium chloride 0.9 % 250 mL IVPB 20 mmol intravenous PRN Steffanie Lozano APRN-RUBINA Or sodium phosphate 20 mmol in sodium chloride 0.9 % 100 mL IVPB 20 mmol intravenous PRN Steffanie Lozano APRN-RUBINA Or sod phos di, mono-K phos mono (K-PHOS NEUTRAL) 250 mg tablet 2 tablet 2 tablet oral PRN Steffanie Lozano APRN-RUBINA vancomycin (VANCOCIN) IVPB Dosed by Levels intravenous Dosed by Mikayla Gonzalez APRN-RUBINA Nutrition Focused Physical Findings +NG, confused Extremities, Muscles, and Bones A. Muscle Loss - appears WNL B. Loss of Subcutaneous Fat - appears WNL Skin (per nursing flow sheets): Skin Color: Creswell; Pale (09/21/24 0800) Skin Temp: Cool; Clammy (09/21/24 0800) Wound (per nursing flow sheets): Wound 09/19/24 [...] Body Weight: see above for wt trends Orwell Body Weight: 61.4kg Percent Orwell Body Weight: 193% Weight Changes: 8.5kg loss/3 months (7%) Body Mass Index: Body mass index is 40.92 kg/m . BMI Category: Obese class 3 (> or = 40.00) Comparative Standards: Estimated Energy Needs: 7214-1723 kcals daily. Method and weight used: 28-32 kcal/kg IBW Estimated Protein Needs: 74-123 grams daily. Method and weight used: 1.2-2g protein/kg IBW Estimated Fluid Needs: 8953-0853 ml daily. Method weight used: 28-32 ml/kg [...] Parker RD, DEISY Clinical Dietitian Direct Line * Hiram Jones MD - 09/19/2024 11:17 AM EDTAssociated Order(s): IP CONSULT TO UROLOGY Images from [...] 4.1 cm right temporal brain mass with vatuc-ke-xgok shift 6 cm and surrounding edema. Urology [...] Medical History: Diagnosis Date MS (multiple sclerosis) ([facility]) 2012 Past Surgical History: Past [...] No Stress Concern Present (06/04/2023) Received from [facility] [place] [facility] Occup[facility] - Occupational Stress Questionnaire Feeling of Stress : Only a little Social Connections: Moderately Integrated (06/04/2023) Received from [facility] Social Connection and Isolation Panel [NHANES] Frequency of Communication with Friends and Family: Twice a week Frequency of Social Gatherings with Friends and Family: Once a week Attends Alevism Services: 1 to 4 times per year [...] Procedure Component Value Units Date/Time Blood culture [[id number]] Collected: 09/19/24 0123 Specimen: Blood, Venous Updated: 09/19/24134 Blood culture [[id number]] Collected: 09/19/24 002 Specimen: Blood, Venous Updated: [...] 4 mm nonobstructing right renal stone retroperitoneal npmgaoqnoa82/03/2025 Recommendations: 1. As above 2. check stone protocol CT to rule out stone. 3. Pending possible OR Saturday Neurosurgery. We will follow with you. Thank you very much. I appreciate being asked to help with this patient's care. Enid Eaton Jr., M.D. [facility] [phone] * Chip Zarate, MOTORCOACH OPERATOR-HEAD OF DESIGN - 09/19/2024 11:00 AM EDTAssociated Order(s): Consult Neurosurgery Images from the original note were not included. [facility] [address] [place] [address], [address] [place] [address] * NEUROSURGERY CONSULT NOTE DATE:09/19/2024 PATIENT'S NAME: [...] mL IVPB, 3,000 mg, intravenous, PRN, Miriam Hightower MD calcium gluconate 4,000 mg in sodium chloride 0.9 % 250 mL IVPB, 4,000 mg, intravenous, PRN, Miriam Hightower MD calcium gluconate IVPB 2000 mg/100 mL (20 mg/mL premix), 2,000 mg, intravenous, PRN, Miriam Church MD dexAMETHasone (DECADRON) injection 4 mg, 4 mg, intravenous, Q6H FELTON, Chip Zarate, MOTORCOACH OPERATOR-HEAD OF DESIGN, 4 mg at 09/19/24 1326 dextrose (GLUTOSE) [...] premix), 500 mg, intravenous, Q12H, Chip Zarate, MOTORCOACH OPERATOR-HEAD OF DESIGN, Stopped at 09/19/24 0910 magnesium sulfate IVPB 2000 mg/50 mL in iso-osmotic water (40 mg/mL premix), 2,000 mg, intravenous,PRN, Miriam Church MD magnesium sulfate IVPB 4000 [...] Medical History: Diagnosis Date MS (multiple sclerosis) ([facility]) 2012 Past Surgical History: Procedure [...] [facility] Please contact via Cumulocity first then can utilize Patient touch/VoceraEdge if needed 09/19/24 3:10 PM To find out which DIANE is on for the day please go to [employer] and use log in Skills Matter and search for [facility] Neurosurgery (DIANE and Phone Number is listed) - JACQUELINE VAZQUEZ 09/19/24 2:53 PM JACQUELINE Vazquez 09/19/24 151 * Miriam Church MD - 09/19/2024 9:13 AM EDT Images from the original note [...] status. The patient apparently was seen at [facility] for altered mental status. She was found to have acute kidney injury with a creatinine 14.8. CT revealed a 4.1 cm right temporal mass with midline shift. The patient was found to have acute urine retention. Alexis catheter was placed. She was transferred to [facility] for further evaluation management and neurosurgical [...] cm left kidney of 14.0 cm with right- sided kidney stone with mild hydronephrosis on the right and left side. From September of 2024 MAGI anti MPO anti PR3 and anti-GBM are pending, serumprotein electrophoresis is pending, C3 was 196 and C4 was 42, CPK was 18, urine dipstick revealed 100 mg/dL protein moderate blood fractional excretion of sodium was 5.2% and random urine protein to creatinine ratio was 1.6 grams/gram. Acute urine retention Right temporal 4.1 brain mass with tsuak-kx-ippn 60 mm shift with surrounding edema from September of 2024 Multiple sclerosis Left carpal tunnel release Left shoulder arthroscopy Allergies: No Known Allergies Home Meds: Medications Prior to Admission Medication Sig Dispense Refill Last Dose/Taking acetaminophen (TYLENOL) 325 mg tablet Take 2 tablets (650 mg total) by mouth every 6 (six) hours asneeded for pain. busPIRone (BUSPAR) 7.5 mg tablet [...] 1 tablet (15 mg total) on tonguenightly. Current medications: dexAMETHasone, 4 mg, intravenous, Q6H [...] Concern Present (06/04/2023) Received from [facility] [place] [facility] Occupational [facility] - Occupational Stress Questionnaire Feeling of Stress : Only a little Social Connections: Moderately Integrated (06/04/2023) Received from [facility] Social Connection and Isolation Panel [NHANES] Frequency of Communication with Friends and Family: Twice a week Frequency of Social Gatherings with Friends and Family: Once a week Attends Alevism Services: 1 to 4 times per year [...] call us with any questions at: Office: [phone] Office Answering Service: [phone] Miriam Church M.D. This note was created with the assistance of a speech-recognition program. Although the intention is to generate a document that actually reflects the content of the visit, no guarantees can be provided that every mistake has been identified and corrected by editing. documented in this encounterCommunity [facility] Emergency department Note* Isaiah Driscoll RN - 09/19/2024 12:04 AM EDT Arrives via flight from [facility]. From a SNF, sent here for altered mental status and abnormal CT results, pt is alert but not oriented. * Lewis BotelloDO - 09/19/2024 12:03 AM EDT Images from the original note were not included. [facility] - EMERGENCY DEPARTMENT Pt Name: Anupama [...] consultation. Per records brought by EMS from [facility] ED patient was seen for urinary retention with GFR of 14.85, altered mental status, patient hada CT done which revealed 4.1 cm right temporal brain mass with kuolt-bs-poca 60 mm shift which includes surrounding edema. Patient is protected airway is able to communicate. History provided by: Patient Past Medical History: Past Medical History: Diagnosis Date MS (multiple sclerosis) ([facility]) 2012 Past Surgical History: Past [...] Concern Present (06/04/2023) Received from [facility] [place] [facility] - Occupational Stress Questionnaire Feeling of Stress : Only a little Social Connections: Moderately Integrated (06/04/2023) Received from [facility] Social Connection and Isolation Panel [NHANES] Frequency of Communication with Friends and Family: Twice a week Frequency of Social Gatherings with Friends and Family: Once a week Attends Alevism Services: 1 to 4 times per year [...] [EB] 0259 2:[address] Ivy MEDEIROS, who reviewed case. At this time, they recommend admission toICU and neurosurgery consult [EB] ED Course User Index [EB] Ken Ontiveros MD Clinical Impressions as of 09/19/24 0300 Altered mental status, unspecified altered mental status type BRANDON (acute kidney injury) Brain mass . ED Disposition None Teaching Visit 00:19 EDT Sotero Moreno(scribe), scribed for and in the presence of: Dr Lewis Botello who performed the above service. I, Dr. Botello saw the patient, was physically present [...] 09/19/24 0327 Lewis Botello DO 09/19/24 0429 * Eliazar Hendrickson RN - 09/18/2024 11:59 PM EDT Bed: 28 Expected date: Expected time: Means [...] requested flight: Flight accepted, will be to [place] at 2300. ETA to [facility] 2330-[facility]night 56 SNF Hx of MS Sen t in for abnormal labs BUN and CREAT elevated Repeat has came down CT glioblastoma with mid line shift Alert Alexis in place 2200 output from Alexis 164/104 Triple lumen in neck 22g Flight left about 5 min documented in this encounterCommunity [facility] Center04-30-2025 History of Present illness Narrative* Adonay Castillo, MOTORCOACH OPERATOR-HEAD OF DESIGN - 09/16/2024 1:20 PM EDT Images from the original note were not included. Wound Care Progress Note Patient: Anupama Vasquez Date of : 1970 Chief Complaint: Wound on buttocks New patient evaluation SUBJECTIVE/HPI: Anupama is a 54 y.o. female who presents to [facility] for evaluation of 1 ulcer(s) [...] Medical History: Diagnosis Date MS (multiple sclerosis) ([facility]) 2012 Past Surgical History: Procedure [...] 1 tablet (15 mg total) on tonguenightly. acetaminophen (TYLENOL) 325 mg tablet Take 2 tablets (650 mg total) by mouth every 6 (six) hours asneeded for pain. No current facility-administered medications for this visit. No Known Allergies The following portions of the patient's history were reviewed and updated as appropriate: allergies, current medications, past family history, past medical history, past social history, past surgicalhistory, problem list, and medication reconciliation was completed including current medication andpost discharge medication. Pain Scale: Pain Scale 0/10: [...] (Active) Wound Image 09/16/24 1323 Site Assessment Yellow;[place]well 09/16/24 1323 Fallon-wound Assessment Blanchable erythema;Creswell 09/16/24 1323 Wound Length (cm) 1 cm [...] Wound Bed Slough (%) < 25% 09/16/24 132 Assessment/Plan/Education: 1. Dermatitis associated with moisture 2. [...] and buttocks. Short term goal: medical compliance intermediate frame tender goal: wound closure Patient verbalize understanding of [...] infection, edema, necrotic tissue and its relationship tononhealing wounds. Education was also provided on treatment [...] PM Adonay Castillo APRN, RUBINA, CWS, ZOE Macdonaldt [facility]: [phone] JACQUELINE Germain 09/16/24 1358 documented in this encounterCommunity [facility] Medical Center04-30-2025 Instructions* Patient Instructions* Angela Chapa RN - 09/16/2024 1:20 PM EDT Wound Management Treatment Plan [facility] Wound Location(s): LEFT BUTTOCKS HOW [...] Description small Serous serous documented in this encounterCommunity Regional Medical Center04-01-2025 History of Present illness Narrative* Fred Gracia NP - 08/18/2024 9:32 AM EDTAssociated Problem(s): Primary insomnia Would like to trial mirtazapine for sleep * TERESITA PEREIRA - 08/18/2024 9:20 AM EDT Pt states that her anxiety is threw the roof She has a friend that takes MIRTAZAPINE and told her that she feels amazing anupama would like totalk with you about trying this medication * Fred Gracia NP - 08/18/2024 9:20 AM EDT Images from the original note were not included. Anupama Vasquez is a 54 y.o. female presents with chief complaint of No chief complaint on file. HPI: Here for a recheck: depression and anxiety, at last appt we increased her abilify to 10mg daily fordepression She feels the abilify is helping her [...] Date Abnormal CBC 07/30/2023 Anxiety and depression ([facility]) Carpal tunnel syndrome 2002 Chronic diarrhea Chronic shoulder pain 05/01/2023 Class 3 severe obesity without serious comorbidity with body mass index (BMI) of 45.0 to 49.9 in adult ([facility]) 04/30/2023 Constipation Depression ([facility]) Hot flashes 07/30/2023 Hyperlipidemia, acquired ([facility]) 07/30/2023 Hypertension ([facility]) Knee pain, left anterior Major depression ([facility]) Morbid obesity with BMI of 40.0-44.9, adult ([facility]) Multiple sclerosis ([facility]) Night sweats 07/30/2023 LORENZO (obstructive sleep apnea) 07/30/2023 Pain of left middle finger Primary insomnia Rash Rectal burning Right knee pain, unspecified chronicity Sinusitis Stroke ([facility]) 07/30/2023 Urinary incontinence in female Vaginal discharge Vitamin D deficiency Past Surgical History: Procedure Laterality Date CARPAL TUNNEL RELEASE Right 2005 ECTOPIC SURGERY HYSTERECTOMY 1991 SHOULDER SURGERY Left 02/10/2024 Arthroscopy, RCR @ [facility] w/ MTP TUBAL LIGATION 1990 family history [...] Relevant Medications mirtazapine (Remeron) 15 MG tablet * Fred Gracia NP - 08/18/2024 6:16 AM EDTAssociated Problem(s): Major depressive disorder, recurrent, moderate (CMS/HCC) Current meds: abilify, lexapro, buspar Will add mirtazapine * Fred Gracia NP - 08/18/2024 6:16 AM EDTAssociated Problem(s): Generalized anxiety disorder with panic attacks (CMS/HCC) Last appt increased dose of abilify to 10mg daily and buspar to 5mg TID, cont lexapro at 10mg daily Current meds: abilify, lexapro and buspar MELISSA 7=17 * Fred Gracia NP - 08/18/2024 6:14 AM EDTAssociated Problem(s): Morbid (severe) obesity due to excess calories (CMS/HCC) Discussed with patient their BMI (actual, verses recommended). We have also discussed lifestyle modifications: attempts to perform physical activity as chronic conditions allow, also to monitor dietary intake: increasing protein/fruits/veggies and lowering carb intake (unless contraindicated). Limit sodas, juices, and sugary drinks. documented in this [facility]04-01-2025 Instructions* Patient Instructions* Fred Gracia NP - 08/18/2024 9:20 AM EDT Cont escitalopram 10mg daily, as well as the aripriazole 10mg daily Increase the buspirone from 5mg , to 7.5mg and you can take this every 8 hour NEEDED for anxiety We will add the mirtazipine for sleep I will refer you to [facility] in [place], they should call you documented in this [facility]03-17-2025 Telephone encounter Note* Telephone Encounter - Elva Rodriguez NP - 08/03/2024 11:58 AM EDT Patient needs to reschedule appointment she missed today. She is [place] patient and was scheduledwith [facility]. [facility] follow up visits are 30 minutes and new patients 40 minutes. This would be follow up visit. [facility] Healthcare Work Phone: [phone] 164-549703-17-2025 Miscellaneous Notes* Telephone Encounter - Elva Rodriguez NP - 08/03/2024 11:58 AM EDT Patient needs to reschedule appointment she missed today. She is [place] patient and [facility]. [facility] follow up visits are 30 minutes and new patients 40 minutes. This would be follow up visit. documented in this encounterC[id number] History of Present illness Narrative* Sherrie Boone NP - 06/17/2024 9:57 AM ESTAssociated Problem(s): Acute non-recurrent frontal sinusitis Sinus congestion X2 weeks Ear ache Has tried OTC regimens with no relief. Will treat with Doxycycline x7 days, Flonase and Zyrtec. Return to office if symptoms worsen or do not improve. * Sherrie Boone NP - 06/17/2024 9:30 AM EST Images from the original note [...] (ZyrTEC) 10 MG tablet documented in this [facility]01-29-2025 Instructions* Patient Instructions* Sherrie Boone NP - 06/17/2024 9:30 AM [...] THE NEAREST EMERGENCY DEPARTMENT. documented in this [facility]12-30-2024 History of Present illness Narrative* Fred Gracia NP - 05/18/2024 9:47 AM ESTAssociated Problem(s): Generalized anxiety disorder with panic attacks (CMS/HCC) Lexapro at 20mg anhedonia, and at 10mg not helping Will add buspar 5mg BID Add abilify at 5mg Fu in 4 weeks * Fred Gracia NP - 05/18/2024 9:47 AM ESTAssociated Problem(s): Depression (CMS/HCC) Husbands over the last few months, worsened her symptoms Lexapro higher dose causes anhedonia, lower dose no effective Add abilify at 5mg daily Add buspar 5mg BID Fu in 4 weeks PHQ 9=11, MELISSA 7 =5 * TERESITA PEREIRA - 05/18/2024 9:20 AM EST Pt can't smell or taste in the [...] panic attacks at least twice a day. * Fred Gracia NP - 05/18/2024 9:20 AM EST Images from the original note [...] Date Abnormal CBC 07/30/2023 Anxiety and depression ([facility]) Carpal tunnel syndrome 2002 Chronic diarrhea Chronic shoulder pain 05/01/2023 Class 3 severe obesity without serious comorbidity with body mass index (BMI) of 45.0 to 49.9 in adult ([facility]) 04/30/2023 Constipation Depression ([facility]) Hot flashes 07/30/2023 Hyperlipidemia, acquired ([facility]) 07/30/2023 Hypertension ([facility]) Knee pain, left anterior Major depression ([facility]) Morbid obesity with BMI of 40.0-44.9, adult ([facility]) Multiple sclerosis ([facility]) Night sweats 07/30/2023 LORENZO (obstructive sleep apnea) 07/30/2023 Pain of left middle finger Primary insomnia Rash Rectal burning Right knee pain, unspecified chronicity Sinusitis Stroke ([facility]) 07/30/2023 Urinary incontinence in female Vaginal discharge Vitamin D deficiency Past Surgical History: Procedure Laterality Date CARPAL TUNNEL RELEASE Right 2005 ECTOPIC SURGERY HYSTERECTOMY 1991 SHOULDER SURGERY Left 02/10/2024 Arthroscopy, RCR @ [facility] w/ MTP TUBAL LIGATION 1990 family history [...] (BMI) of 45.0 to 49.9 in adult ([facility]) Discussed with patient their BMI [...] takes meds sleeps 7 hours Multiple sclerosis ([facility]) Continue with neurology and treatment Encounter for screening mammogram for malignant neoplasm of breast Relevant Orders Bilateral screening mammogram Depression ([facility]) Husbands over the last few months, worsened [...] well. I have recommended eating a balanced diet,as well as activity as chronic conditions allow [...] MG tablet busPIRone (Buspar) 5 MG tablet * Fred Gracia NP - 05/18/2024 6:24 AM ESTAssociated Problem(s): Encounter for subsequent annual wellness visit (AWV) in Medicare patient I have reviewed Ht/Wt/BMI, I have reviewed recommended vaccines for patient's age, as well as all recommended screenings I have reviewed available care everywhere notes as well. I have recommended eating a balanced diet,as well as activity as chronic conditions allow It is recommended that the patient have a yearly eye exam, as well as twice a year dental exams Fu in this office for wellness on a yearly basis * Fred Gracia NP - 05/18/2024 6:22 AM ESTAssociated Problem(s): Anxiety and depression (CMS/HCC) (Resolved 05/18/2024) Did increase lexapro to 20mg at last visit Has attended grief counseling, did not want to return, feels she has some goals she is working on and things to occupy her time * Fred Gracia NP - 05/18/2024 6:21 AM ESTAssociated Problem(s): Class 3 severe obesity without serious comorbidity with body mass index (BMI) of 45.0 to 49.9 in adult ([facility]) Discussed with patient their BMI [...] no contra indications for this med otherwise * Fred Gracia NP - 05/18/2024 6:20 AM ESTAssociated Problem(s): Primary insomnia Continue trazodone doing well when takes meds sleeps 7 hours * Fred Gracia NP - 05/18/2024 6:19 AM ESTAssociated Problem(s): LORENZO (obstructive sleep apnea) You have a diagnosis of obstructive sleep apnea. It is recommended that you wear your PAP device any time while in bed sleeping. Not using the PAP device can increase your risk of elevated/uncontrolled high blood pressure, atrial fibrillation, heart attack, stroke, or sudden . Does not wear this , never has, dx 20 years ago * Fred Gracia NP - 05/18/2024 6:19 AM ESTAssociated Problem(s): Multiple sclerosis (CMS/HCC) Continue with neurology and treatment documented in this encounterCox [id number] Instructions* Patient Instructions* Fred Gracia NP - 05/18/2024 9:20 AM EST Keep escitalopram at 10mg, add ariprazole 5mg daily, add buspar 5mg twice a day for anxiety Follow up appt in 4 weeks Need mammogram-I will fax [facility] documented in this encounterCox [id number] Telephone encounter Note* Telephone Encounter - Vicenta Dill - 05/04/2024 3:07 PM EST Per Aria Kumar, PT, she advises to notify Anupama and inform due to ongoing neck pain we'dbe able to cx Eval that is scheduled tomorrow. Though note w/ the date range post shoulder we'll keep referral open and to contact if neck pain may reside and willing to partake PT for shoulder. She noted the recommendation. [facility] [id number] Miscellaneous Notes* Telephone Encounter - Vicenta Dill - 05/04/2024 3:07 PM EST Per Aria Kumar, PT, she advises to notify Anupama and inform due to ongoing neck pain we'dbe able to cx Eval that is scheduled tomorrow. Though note w/ the date range post shoulder we'll keep referral open and to contact if neck pain may reside and willing to partake PT for shoulder. She noted the recommendation. * Telephone Encounter - Vicenta Dill - 05/04/2024 2:05 PM EST She called noting she has been having severe neck pain which results in 3 bulging discs in her neck; she has an appt w/ Oren Chinchilla 08/11/24. Due to severity of pain she feels PT addressing her shoulder would be useless beginning tomorrow. She cx; I noted I would inform PT and notify if requested. documented in this encounterCox [id number] Telephone encounter Note* Telephone Encounter - Vicenta Dill - 05/04/2024 2:05 PM EST She called noting she has been having severe neck pain which results in 3 bulging discs in her neck; she has an appt w/ Oren Chinchilla 08/11/24. Due to severity of pain she feels PT addressing her shoulder would be useless beginning tomorrow. She cx; I noted I would inform PT and notify if requested. [facility] [id number] History of Present illness Narrative* Alona King MA - 04/27/2024 9:00 AM ESTAssociated Order(s): L Inj/Asp: L subacromial bursa Post-Procedure [...] time out was called to verify the correctpatient, procedure, equipment, marketing support specialist and site/side marked as required. Patient was prepped and draped in the usual sterile fashion. * MARCELLE Perea - 04/27/2024 9:00 AM EST Images from the original note [...] that wanted to poke through his skin inher son was able to help extract this [...] suture today. She has abduction to 50 degreesalso associated with frozen shoulder internal rotation is [...] stretching the shoulder causing discomfort we will helpre-establish the elasticity needed for normal range of motion and decrease her pain from her secondary adhesive capsulitis or frozen shoulder. Cortisone should start to improve her symptoms and 48 hours up to a week. Cold pack is very helpful 20 minutes several times a day. May use moist heat priorto stretching and working on range of motion [...] used for breakthrough discomfort. documented in this encounterCox [id number] Instructions* Patient Instructions* MARCELLE Perea - 04/27/2024 9:00 AM EST Continue to work on her own range of motion stretching the shoulder causing discomfort we will helpre-establish the elasticity needed for normal range of motion and decrease her pain from her secondary adhesive capsulitis or frozen shoulder. Cortisone should start to improve her symptoms and 48 hours up to a week. Cold pack is very helpful 20 minutes several times a day. May use moist heat priorto stretching and working on range of motion [...] used for breakthrough discomfort. documented in this encounterCox [id number] Telephone encounter Note* Telephone Encounter - Fred Gracia NP - 04/27/2024 8:09 AM EST Please call to schedule pt a fu appt in the next month [place] [facility] [id number] Miscellaneous Notes* Telephone Encounter - Fred Gracia NP - 04/27/2024 8:09 AM EST Please call to schedule pt a fu appt in the next month [place] documented in this encounterCox [id number] Telephone encounter Note* Telephone Encounter - Karol Juarez - 03/09/2024 2:42 PM EDT Patient stated she has a shoulder stitch [...] me to kiss her ass she's doing itand hung up. [facility] [id number] Miscellaneous Notes* Telephone Encounter - Karol Juarez - 03/09/2024 2:42 PM EDT Patient stated she has a shoulder stitch [...] me to kiss her ass she's doing itand hung up. documented in this encounterCox [id number] History of Present illness Narrative* rFed Gracia NP - 03/05/2024 11:14 AM EDTAssociated Problem(s): Candidiasis of skin D/t her arm being in a sling, she is requesting we use nystatin powder as cream and ointment is notsomething she can properly use at this time * Fred Gracia NP - 03/05/2024 11:13 AM EDTAssociated Problem(s): Anxiety and depression (CMS/HCC) We will increase dose on lexapro to 20mg daily Attended grief counseling, did not want to return, feels she has some goals she is working on and things to occupy her time Fu in 4 weeks * TERESITA PEREIRA - 03/05/2024 10:00 AM EDT Pt brother had a stroke yesterday and her mother after having a stroke- she is now concerned for herself on stroke risks * Fred Gracia NP - 03/05/2024 10:00 AM EDT Images from the original note were not included. Anupama Vasquez is a 53 y.o. female presents with chief complaint of No chief complaint on file. HPI: Also needs anti fungal powder Depression Visit Type: follow-up Patient presents with the following symptoms: depressed mood, irritability, nervousness/anxiety andthoughts of . Patient is not experiencing: anhedonia, chest pain, compulsions, decreased concentration, excessiveworry, fatigue, feelings of hopelessness, feelings of worthlessness, [...] hours as needed for shoulder surgical pain., [employer] #72, 167.7, cm, 02/05/24 11:09:00 EDT, Height/Length Dosing, 131.3, kg, 02/05/24 11:09:00 EDT, Weight Dosing traZODone (DESYREL) 100 mg, Oral, Nightly ALLERGIES: No Known Allergies REVIEW OF SYMPTOMS: Review of Systems Constitutional: Positive for irritability. Negative for appetite change, chills, fever, weight gainand weight loss. HENT: Negative for congestion, ear [...] weeks ago, no current). The patient is nervous/anxious.The patient does not have insomnia. Depression Hematological: Does not bruise/bleed easily. Endocrine: Negative for polydipsia, polyphagia and polyuria. Allergic/Immunologic: Negative for environmental allergies and food allergies. PAST MEDICAL HISTORY Past Medical History: Diagnosis Date Abnormal CBC 07/30/2023 Anxiety and depression ([facility]) Carpal tunnel syndrome 2002 Chronic diarrhea Chronic shoulder pain 05/01/2023 Class 3 severe obesity without serious comorbidity with body mass index (BMI) of 45.0 to 49.9 in adult ([facility]) 04/30/2023 Constipation Depression ([facility]) Hot flashes 07/30/2023 Hyperlipidemia, acquired ([facility]) 07/30/2023 Hypertension ([facility]) Knee pain, left anterior Major depression ([facility]) Morbid obesity with BMI of 40.0-44.9, adult ([facility]) Multiple sclerosis ([facility]) Night sweats 07/30/2023 LORENZO (obstructive sleep apnea) 07/30/2023 Pain of left middle finger Primary insomnia Rash Rectal burning Right knee pain, unspecified chronicity Sinusitis Stroke (CMS/HCC) 07/30/2023 Urinary incontinence in female Vaginal discharge Vitamin D deficiency Past Surgical History: Procedure Laterality Date CARPAL TUNNEL RELEASE Right 2004 ECTOPIC SURGERY HYSTERECTOMY 1991 SHOULDER SURGERY Left 02/10/2024 Arthroscopy, RCR @ [facility] w/ MTP TUBAL LIGATION 1990 family history [...] Relevant Orders Flu vaccine, MDCK, quadrivalent, PF (TMC140) (Flucelvax single dose syringe) Candidiasis of skin D/t her arm being in a sling, she is requesting we use nystatin powder as cream and ointment is notsomething she can properly use at this time Relevant Medications nystatin (Mycostatin) 849049 UNIT/GM powder documented in this encounterCox [id number] History of Present illness Narrative* Eliazar Brooks DO - 02/25/2024 8:15 AM EDT Chief complaint: S/P left shoulder scope/RC repair-first [...] 2 more weeks. PT was sent [facility] large RC repair protocol. F/U will be in 2 months, prn if doing well. All questions answered. documented in this encounterCox [id number] Telephone encounter Note* Telephone Encounter - Karol Alma - 02/14/2024 10:31 AM EDT MTP- PO Lt shoulder scope prob RCR TSCNCO 02/10/24 Patient called requesting a home health assistance, she states she has noone to help her I spoke with Naomi- with her type of surgery she will not qualify for any assistance. At this time we cannot order a home health assistance for her- Can you please call patient and inform her. [place] [id number] Miscellaneous Notes* Telephone Encounter - Karol Juarez - 02/14/2024 10:31 AM EDT MTP- PO Lt shoulder scope prob RCR TSCNCO 02/10/24 Patient called requesting a home health assistance, she states she has noone to help her I spoke with Naomi- with her type of surgery she will not qualify for any assistance. At this time we cannot order a home health assistance for her- Can you please call patient and inform her. documented in this [facility]09-26-2024 Telephone encounter Note* Telephone Encounter - Priyanka Kim - 02/13/2024 2:31 PM EDT Was wanting to know if she could stop taking the percocet, pain isn't that bad and she was wanting to take her trazodone. [place] [id number] Miscellaneous Notes* Telephone Encounter - Priyanka Kim - 02/13/2024 2:31 PM EDT Was wanting to know if she could stop taking the percocet, pain isn't that bad and she was wanting to take her trazodone. documented in this [facility]09-23-2024 Hospital Discharge instructions Patient Education 02/10/2024 15:39:49 Shoulder Cryocuff Patient Instructions - FT (CUSTOM) 02/10/2024 15:39:45 Post Op Patient Instructions - FT (CUSTOM) 02/06/2024 18:01:14 Brooks - After Your Shoulder Arthroscopy (Revised 06/17/14) (CUSTOM) [place], [place] [facility] AFTER YOUR SHOULDER ARTHROSCOPY 1.Diet Begin with a liquid diet and advance to your normal diet as tolerated. 2.Activity You may gradually increase your activity as tolerated. Until your first post- operative visit, you may want to elevate your [...] this is comfortably tolerated. Do not forcefully performexercises until you have permission. Driving Driving is [...] your operated shoulder. Although the dressing may becomemoist or blood stained, this is not usually [...] increasing pain (not relieved by rest, elevation, ice)and medication as prescribed, redness or swelling in your shoulder or arm, please contact the office or the hospital. If you notice increased drainage from the operative portals after the third day, this should also be reported. 9.Return Visit Your first post-operative follow-up appointment is generally between 10 and 14 days after dischargefrom the hospital and you will be given an appointment card. Do not hesitate to call the office or the hospital if any problems or questions arise before your appointment. Eliazar Brooks, DO [facility] [address] [place], [place] [id number] Reviewed: 15 Follow Up Care 12/24/2023 11:37:06 With:YUE Santamaria Address: [address] [place] [address] Business (1) When:02/25/2024 14:30:00 Comments:Keep scheduled appointmentCall for any problems. [facility] 09-23-2024 NoteProgress Note-Physician Patient: ANUPAMA VASQUEZ Age: 53 years Sex: Female : 1970 Associated Diagnoses: None Author: Mynor Vega MD Postoperative Information Postoperative disposition: Postoperative disposition: To PACU. Optimetrix number: Optimetrix number [id number]. Anesthetic utilized: General. Regional: Interscalene Block. Health [...] Discharge when meets criteria ( To home ).[facility]:Result Comment: Electronically Signed By: Mina BENITEZ, Mynor Markham\.br\Date and Time Signed: 02/10/24 16:19 EDT 02-10-2024 NotePatient Education - Text [place], [place] [facility] AFTER YOUR SHOULDER ARTHROSCOPY 1. Diet Begin with a liquid diet and advance to your normal diet as tolerated. 2. Activity You may gradually increase your activity as tolerated. Until your first post- operative visit, you may want to elevate your [...] this is comfortably tolerated. Do not forcefully performexercises until you have permission. Driving Driving is [...] your operated shoulder. Although the dressing may becomemoist or blood stained, this is not usually [...] increasing pain (not relieved by rest, elevation, ice)and medication as prescribed, redness or swelling in your shoulder or arm, please contact the office or the hospital. If you notice increased drainage from the operative portals after the third day, this should also be reported. 9. Return Visit Your first post-operative follow-up appointment is generally between 10 and 14 days after dischargefrom the hospital and you will be given an appointment card. Do not hesitate to call the office or the hospital if any problems or questions arise before your appointment. Eliazar Brooks, DO [facility] [address] [place] [address] Reviewed: 06-03[facility]09-[facility] Evaluation + Plan note Extracted from: Title:ANES Post-operative Note---General Author: Mynor Vega MD Date:02/10/24 Plan Transfer/Discharge: Transfer/Discharge Discharge when meets criteria ( To home ). Extracted from: Title:ANES Pre-operative Note 2022 Author:Mynor Young Date:02/10/24 Plan [place] [employer] (ASA) physical status classification: Class III. Anesthetic Preoperative Plan: Anesthesia General, and LMA. Regional Interscalene block. [facility] [id number] NoteProgress Note-Physician Patient: ANUPAMA VASQUEZ Age: 53 [...] hours as needed for shoulder surgical pain., [employer] #72, 167.7, cm, 02/05/24 11:09:00 EDT, [...] mL/hr PRN: (12) acetaminophen-oxyC (more content not included)...[facility] Comment on above:Result Comment: Electronically Signed By: Mina BENITEZ, Mynor Markham\.br\Date and Time Signed: 02/10/24 13:21 [id number] History of Present illness Narrative* Fred Gracia [...] to oren jackson at [facility] * Fred Gracia, SW[employer]MING [employer]OL [employer]INTENANCE - 02/03/2024 2:20 PM EDT Images from [...] Oral, 2 times daily, Take with food Ktuhdsr-Ewglzhnhfrk-Fpwqskegqv ([employer]) 160-9-4.8 MCG/ACT aerosol 2 puffs, [...] Date Abnormal CBC 07/30/2023 Anxiety and depression ([facility]) Carpal tunnel syndrome 2002 Chronic diarrhea Chronic shoulder pain 05/01/2023 Class 3 severe obesity without serious comorbidity with body mass index (BMI) of 45.0 to 49.9 in adult ([facility]) 04/30/2023 Constipation Depression ([facility]) Hot flashes 07/30/2023 Hyperlipidemia, acquired ([facility]) 07/30/2023 Hypertension ([facility]) Knee pain, left anterior Major depression ([facility]) Morbid obesity with BMI of 40.0-44.9, adult ([facility]) Multiple sclerosis ([facility]) Night sweats 07/30/2023 LORENZO (obstructive sleep apnea) 07/30/2023 Pain of left middle finger Primary insomnia Rash Rectal burning Right knee pain, unspecified chronicity Sinusitis Stroke ([facility]) 07/30/2023 Urinary incontinence in [...] (Augmentin) 875-125 MG tablet documented in this encounterCox [id number] History of Present illness Narrative* Renuka Bui [...] Morbid obesity with BMI of 40.0-44.9, adult ([facility]) Multiple sclerosis ([facility]) Night sweats 07/30/2023 LORENZO (obstructive sleep apnea) 07/30/2023 Pain of left middle finger Primary insomnia Rash Rectal burning Right knee pain, unspecified chronicity Sinusitis Stroke ([facility]) 07/30/2023 Urinary incontinence in [...] 2 puffs, Inhalation, Every 6 hours PRN Qibkmtt-Jliqchmibzw-Xgzttmtpqq ([employer]) 160-9-4.8 MCG/ACT aerosol 2 puffs, [...] shoulder. Eliazar Brooks D.O. documented in this encounterCox [id number] Telephone encounter Note* Telephone Encounter - Michelle Lujan - 01/17/2024 12:20 PM EDT Called patient back to let her know that Jessica's preference is for the [facility] to remain at [facility] ifshe is to order the medication. Patient said she would establish care with local neurologist. [facility]08-30-2024 Miscellaneous Notes* Telephone Encounter - [...] Kriss Call Name of caller : Anupama Antonilee Relationship to patient: Self Return call phone number : [phone] Reason for call : Other : Brief description of concern :Please fax infusion orders to [phone] [facility]. documented in this encounterUniversity [facility]als [facility]08-27-2024 Telephone encounter Note * Telephone Encounter - Miri Soni - 01/14/2024 2:09 PM EDT [place] Call Name of caller : Anupama Vasquez Relationship to patient: Self Return call phone number : [phone] Reason for call : Other : Brief description of concern :Please fax infusion orders to [phone] [facility]. [facility] Work Phone: [phone] Telephone encounter Note* Telephone Encounter - She [...] if she changes her mind. [facility]08-01-2024 Miscellaneous Notes* Telephone Encounter - [...] her mind. documented in this encounterUniversity Hospitals [facility] Center04-19-2024 NoteHNO ID: [id number] Author: LASHAUN VASQUEZ PA-C Service: ? Author Type: Physician Possum Trapper Type: Progress Notes Filed: 09/06/2023 10:11 Note Text: SPINE SURGERY OUTPATIENT CONSULT This is a virtual visit using [employer] Video Visit. It required patient-provider interaction for the medical decision making as documented below. I have communicated my name and active licensure. The patient's identity and physical location were verified at the time of this visit. Either the patient or their legal marketing representative has been informed of the risks and benefits of -- and alternatives to -- treatment through a remote evaluation and consents to proceed with the evaluation remotely. SERVICE DATE: 09/06/2023 PCP: Valdez Acosta MD REFERRING PROVIDER: Jessica Clarke [phone] [facility] [id number] Consult requested for an opinion regarding the [...] in the past as well. Works with [employer] for her MS. Saw an outside orthopedic [...] Function Percentile 7 1 (more content not included)...[facility]04-19-2024 History of Present illness Narrative* Lashaun Vasquez PA-C - 09/06/2023 9:41 AM EDT SPINE SURGERY OUTPATIENT CONSULT This is a virtual visit using [email or web address] Zoom Video Visit. It required patient- provider interaction for the medical decision making as documented below. I have communicated my name and active licensure. The patient's identity and physical location wereverified at the time of this visit. Either the patient or their legal marketing representative has been informed of the risks and benefits of -- and alternatives to -- treatment through a remote evaluation andconsents to proceed with the evaluation remotely. SERVICE DATE: 09/06/2023 PCP: Valdez Acosta MD REFERRING PROVIDER: Jessica Clarke [phone] [facility] [id number] Consult requested for an opinion regarding the [...] in the past as well. Works with [employer] for her MS. Saw an outside orthopedic [...] the table. NEURO TESTS: None DATA REVIEW CC records independently reviewed ASSESSMENT/PLAN (R26.472) Left arm weakness (primary encounter diagnosis) Virtual [...] AM PAGER: documented in this encounterUniversity Hospitals [facility] Center04-09-2024 NoteHNO ID: [id number] Author: ANISHA SANCHEZ PA-C Service: ? Author Type: Physician Possum Trapper Type: Progress Notes Filed: 08/27/2023 11:37 Note [...] from ongoing conservative management. BMI 47.78 [facility] History of Present illness Narrative* Anisha [...] Provider or Pain Management Provider at [facility]? No If answer is YES please [...] the MRI/CT/myelogram was completed: [facility] Address: [address] [place] [address] MRI/CT/myelogram viewable in Epic: Yes If not, please provide [phone] to fax in imaging reports for review. [...] where the surgery was completed: Additional Comments [phone] (Home Phone) documented in this encounterUniversity Hospitals [facility] Center04-04-2024 NoteHNO ID: [id number] Author: ?, ?, ? Service: ? Author Type: ? Type: Progress Notes Filed: 08/27/2023 11:37 Note Text: Patient name: Anupama Vasquez Are you being referred by a [facility] Spine Health Provider or Pain Management Provider at [facility]? No If answer is YES please [...] the MRI/CT/myelogram was completed: [facility] Address[address] [place] [address] MRI/CT/myelogram viewable in [facility]: Yes If not, please provide [phone] to fax in imaging reports for review. [...] where the surgery was completed: Additional Comments [phone] (Home Phone)[facility]04-03-2024 Miscellaneous Notes* Telephone Encounter - Renuka Ellison - 08/21/2023 4:17 PM EDT Kriss Call Name of caller : Anupama Vasquez Relationship to patient: Self Return call phone number : [phone] Reason for call : Other : Brief [...] discuss further. documented in this encounterUniversity Hospitals [facility] Center02-28-2024 Miscellaneous Notes* Telephone Encounter - Elizabeth Victoria RN - 07/17/2023 9:04 AM EST Called patient, no answer. Message left indicating [employer] message would be sent with reason for [...] c-spine MRI was completed locally outside [facility] in April. Orders already placed * Telephone Encounter - Anjelica Alba - 07/15/2023 3:18 PM EST Kriss Call Name of caller : Steffanie Relationship to patient: Caregiver Return call phone number : appointments Reason for call : Order for MRI needed for Brain and Cervical documented in this encounterUniversity Hospitals Cleveland Medical Center02-21-2024 History of Present illness Narrative* Paris Toledo DO - 07/10/2023 6:00 PM EST [facility] Initial Evaluation July 10, 2023 This appointment was requested by Jessica Clarke PA-C, for my medical opinion regarding the evaluation and management of the patient's Anupama Vasquez problems, and my final recommendations will be communicated to the requesting health care provider by way of the shared medical record for internal providers or letter via the [employer] for external providers. SUBJECTIVE: Anupama Vasquez a 53 year old [facility], accompanied by [...] PT several years ago (+) relief Chris [place] Alcohol Abuse - No Drug Abuse - [...] No history of dysuria, frequency or incontinence RENAL TECHNICIAN: Negative for abnormal vaginal bleeding, abnormal vaginal [...] supervised home exercise program (HEP): No 5. Stripper And Opaquer Apprentice: No Passive conservative therapy lasting 6 weeks in the last six months (see below) 1. Medical devises: No 2. Acupuncture: No 3. Tens unit: No 4. Prescription pain medication: 5. NSAIDS: No Do you feel safe at home? Yes Risk assessment at risk due to fall: Unsteady gait Rachael Parada JENNIFER July 10, 2023 The subjective information, including [...] which included preparing to see the patient, [id number] patient care, completing clinical documentation, performing a medically appropriate examination, counseling and educating the patient/family/caregiver, ordering medications, tests, or p rocedures, and communicating with other HCPs (not separately reported). Paris Toledo DO July 10, 2023 documented in this encounterUniversity Hospitals Cleveland Medical Center02-21-2024 NoteHNO ID: [id number] Author: PARIS TOLEDO DO Service: ? Author Type: Physician Type: Progress Notes Filed: 07/12/2023 11:26 Note Text: [facility] Initial Evaluation July 10, 2023 This appointment was requested by Jessica Clarke PA-C, for my medical opinion regarding the evaluation and management of the patient's Anupama Vasquez problems, and my final recommendations will be communicated to the requesting health care provider by way of the shared medical record for internal providers or letter via the [employer] for external providers. SUBJECTIVE: Anupama Vasquez a 53 year old [facility], accompanied by [...] PT several years ago (+) relief Chris [place] Alcohol Abuse - No Drug Abuse - [...] No history of dysuria, frequency or incontinence RENAL TECHNICIAN: Negative for abnormal vaginal bleeding, abnormal vaginal discharge MUSCULOSKELETAL: Negative for joint pain or swelling, back pain or muscle pain. NEUROLOGIC:Negative for focal numbness or weakness, headaches and dizziness or syncope. SKIN:Negative for lesions, rash, and itching. PSYCHIATRIC: Negative for sleep disturbance, mood disorder and recent psychosocial stressors. [place] (more content not included)...[facility]02-07-2024 History of Present illness Narrative* Shaikh Jonn [...] left suppurative otitis media. CXR ordered to gladis/o Pneumonia. PFTs ordered - schedule after 4-6 [...] 8 weeks (around 08/21/2023). documented in this encounterCox [id number] NoteHNO ID: [id number] Author: She Brand RN Service: ? Author [...] ; pt states she had her tubes tied.[facility]12[facility]14-[facility] History of Present illness Narrative* Jessica Clarke PA-C - 05/02/2023 7:30 AM EST Images from the original note were not included. [facility] FOR MULTIPLE SCLEROSIS FOLLOWUP/ESTABLISHED PATIENT VIRTUAL VISIT [...] visit. Either the patient or their legal marketing representative has been informed of the risks [...] Flowsheet Row Office Visit from 03/22/2022 in [facility] Office Visit from 11/14/2021 in [facility] Distance Health from 09/15/2021 in [facility] Upper Extremity Domain T [...] Flowsheet Row Office Visit from 03/22/2022 in [facility] Office Visit from 11/14/2021 in [facility] Distance Health from 09/15/2021 in [facility] Sleep Domain T Score [...] which included preparing to see the patient, [id number] patient care, completing clinical documentation, obtaining and/or reviewing separately obtained history, counseling and educating the patient/family/caregiver, ordering medications, manuel ts, or procedures, communicating with other HCPs (not separately reported), and communicating results to the patient/family/caregiver. The patient was discussed with Dr. Escobar prior to appointment. Jessica Clarke PA-C documented in this encounterUniversity Hospitals Cleveland Medical Center12-14-2023 NoteHNO ID: [id number] Author: Jessica Clarke PA-C Service: ? Author Type: Physician Possum Trapper Type: Progress Notes Filed: 05/02/2023 5:39 PM Note Text: [facility] MULTIPLE SCLEROSIS FOLLOWUP/ESTABLISHED PATIENT [...] visit. Either the patient or their legal marketing representative has been informed of the risks [...] intake documentation Neuro-QoL Functions (higher=better functioning) Flowsheet [facility] Office Visit from 03/22/2022 in [facility] Office Visit from 11/14/2021 in [facility] from 09/15/2021 in [facility] Upper Extremity Domain T Score 32.58 -- 34 Lower Extremity Domain T Score 36.57 -- 37 Cognitive Function Domain T Score 38.32 39 41 Positive Affect Well Being T Score -- -- -- Ability To Participate In Social Roles T Score 29.36 39 43 Satisfaction With Social Roles T Score 40.46 -- 36 Neuro-QoL Symptoms (higher=worse symptoms) Flowsheet [facility] Office Visit from 03/22/2022 in [facility] Office Visit from 11/14/2021 in [facility] from 09/15/2021 in [facility] Sleep Domain T Score [...] spent a total of (more content not included)...[facility] 04-18-2022 Evaluation note* Encounter Date Diagnosis Assessment Notes Treatment Notes Treatment Clinical Notes Mar, Change in bowel function (ICD-10 - R19.4) CONTINUE METAMUCIL DIRECTED RTO 1 YR [employer] Other 11-11-2022 Miscellaneous Notes* Telephone Encounter - Lily Rich Pss - 03/30/2022 2:06 PM EST Patient is calling today and would like to inform that she has a new PCP. Would like to ask that Dr Acosta be removed. She now sees a Dr Fred Arteaga in [place]. Any questions please call patient at [phone] documented in this encounterUniversity Hospitals Cleveland Medical Center11-03-2022 History of Present illness Narrative* Jessica Clarke PA-C - 03/22/2022 12:40 PM EDT Images from the original note were not included. [facility] FOR MULTIPLE SCLEROSIS FOLLOWUP/ESTABLISHED PATIENT VISIT PRINCIPAL [...] Flowsheet Row Office Visit from 03/22/2022 in [facility] Office Visit from 11/14/2021 in [facility] from 09/15/2021 in [facility] Upper Extremity Domain T [...] Flowsheet Row Office Visit from 03/22/2022 in [facility] Office Visit from 11/14/2021 in [facility] from 09/15/2021 in [facility] Sleep Domain T Score 61.04 -- 64 Fatigue Domain T Score 58.38 -- 65 Anxiety Domain T Score 58.73 -- 61 Depression Domain T Score 60.06 58 60 Stigma Domain T Score 58.45 -- 57 Emotional Behavior Dyscontrol T Score -- -- -- *NeuroQoL is a multi-domain patient-reported quality of life questionnaire. PHQ-9 Flowsheet [facility] from 09/15/2021 in [facility] Office Visit from 11/01/2020 in [facility] PHQ-9 Score 11 16 *PHQ-9 is a questionnaire for depressive symptoms, with scores 0-4 indicating none, 5-9 mild, 10-14moderate, 15-19 moderately severe, and 20-27 severe symptoms. PROMIS-10 Flowsheet Row OT/PT/Speech Visit from 01/16/2022 in [facility] Occupational Therapy [facility] from 09/15/2021 in [facility] Global Physical Health T [...] 5 Biceps 5 5 Triceps 5 5 Manager Category 5 5 Dorsal interossei 5 5 Lower [...] and Stretching Follow-up: In 6 months at [facility] I spent a total of 30 minutes on the date of the service which included preparing to see the patient, [id number] patient care, completing clinical documentation, obtaining and/or reviewing separately obtained history, performing a medically appropriate examination, counseling and educating the pat ient/family/caregiver, ordering medications, tests, or procedures, and communicating results to thepatient/family/caregiver. Jessica Clarke PA-C The chart was reviewed for possible participation in the following studies:None documented in this encounterUniversity Hospitals Cleveland Medical Center10-18-2022 History of Present illness Narrative* [...] Payer: Payor: [facility] MEDICAID / Plan: COUNTS INCLUDE 234 BEDS AT THE [facility] PLAN MEDICAID OF [place] / Product Type: [...] 4:06 PM documented in this encounterUniversity Hospitals Cleveland Medical Center09-26-2022 Miscellaneous Notes* Telephone Encounter - Jaycee Haley - 02/12/2022 9:08 AM EDT Called pt LVM to see about setting up pt and psycology. 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; 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 [employer] - [employer]; 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, [...] 5/5 Wrist flexion 5/ 5/5 Wrist extension 5/ 5/5 Manager Category strength (Alexis position 2) 70 lbs 53 lbs Hip abduction 5/5 5/5 Hip flexion 4-/5 4-/5 Hip extension 5/ 5/5 Knee extension 5/ 5/5 Knee flexion 5/ 5/ Ankle DF 5/5 5/5 Ankle PF / 55 MODIFIED MIGDALIA SCALE: plantar flexor: RT: 0 [...] object from floor: 4 = able to supervisor opening and picking object safely and easily Looking over shoulder: [...] test: Right 24.13, 23.06 seconds; CV = 0.44689% Left 22.41, 26.54 seconds; CV = 0.33797% Norms for a 51 year old female [...] 60 35 YES Valid YES Valid Right equal opportunity officer best result: 80 lbs; percentile rank = 75 % Left equal opportunity officer best result: 78 lbs; percentile rank = 90 % Tremors?: No Hand Manager Category Norms: MALE Percentile - lbs. 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 X Agree Disagree 2. In a [...] 8 units: 113-127 mins Physical Performance Test (26134) Skilled Intervention: Neurologically-based functional capacity evaluation specific to the diagnosisof Multiple Sclerosis. Proper administration and selection of physical performance test based on clinical presentation, deficits, and needs. SUN Smalls/Verena documented in this encounterUniversity Hospitals Cleveland Medical Center07-27-2022 Evaluation note* Encounter Date Diagnosis Assessment Notes Treatment Notes Treatment Clinical Notes Nov, Change in bowel function (ICD-10 - R19.8) ENCOURAGED METAMUCIL CAPSULES DAILY. Nov, Tubular adenoma (ICD-10 - D36.9) WILL REPEAT COLON IN 5 YEARS Nov, Diverticulosis (ICD-10 - K57.90) Nov, Hemorrhoids (ICD-10 - K64.9) [employer] Other 06-28-2022 History of Present illness Narrative* Sarthak Escobar MD, PhD - 11/14/2021 8:31 AM EDT Images from the original note were not included. [facility] FOR MULTIPLE SCLEROSIS FOLLOWUP/ESTABLISHED PATIENT VISIT PRINCIPAL [...] (higher=better functioning) Office Visit from 11/14/2021 in [facility] from 09/15/2021 in [facility] OfficeVisit from 11/01/2020 in [facility] Upper Extremity Domain T Score 34 30 Lower Extremity Domain T Score 37 40 Cognitive Function Domain T Score 39 41 36 Positive Affect Well Being T Score Ability To Participate In Social Roles T Score 39 43 46 Satisfaction With Social Roles T Score 36 39 Neuro-QoL Symptoms (higher=worse symptoms) Office Visit from 11/14/2021 in [facility] from 09/15/2021 in [facility] OfficeVisit from 11/01/2020 in [facility] Sleep Domain T Score 64 64 Fatigue Domain T Score 65 69 Anxiety Domain T Score 61 65 Depression Domain T Score 58 60 66 Stigma Domain T Score 57 63 Emotional Behavior Dyscontrol T Score *NeuroQoL is a multi-domain patient-reported quality of life questionnaire. PHQ-9 [facility] from 09/15/2021 in [facility] Office Visit from 11/01/2020 in [facility] PHQ-9 Score 11 16 *PHQ-9 is a questionnaire for depressive symptoms, with scores 0-4 indicating none, 5-9 mild, 10-14moderate, 15-19 moderately severe, and 20-27 severe symptoms. PROMIS-10 [facility] from 09/15/2021 in [facility] Office Visit from 11/01/2020 in [facility] Global Physical Health T [...] 5 Biceps 5 5 Triceps 5 5 Manager Category 5 5 Dorsal interossei 5 5 Lower [...] Lymph 1.00 - 4.00 k/uL 0.60 (L) Dawes% % 12.0 Abs Dawes <0.87 k/uL 0.74 Eosin% % 2.4 Abs [...] atypical for demyelination given significant cortical involvement, but given other cortical plaques, this is still the [...] 7T brain MRI in 3 months at [place]. Will hold next infusion until reviewing MRI. [...] and Stretching Follow-up: In 3 months at [place] with [facility] I spent a total of 40 minutes on the date of the service which included preparing to see the patient, [id number] patient care, completing clinical documentation, obtaining and/or reviewing separately obtained history, performing a medically appropriate examination, counseling and educating the pat ient/family/caregiver, ordering medications, tests, or procedures, independently interpreting results (not separately reported) and communicating results to the patient/family/caregiver. The patient was discussed with Dr. Escobar. Jessica Clarke PA-C [facility] STAFF PHYSICIAN NOTE OF PERSONAL INVOLVEMENT [...] Sarthak Escobar MD, PhD Associate Staff Neurologist [facility] for Multiple Sclerosis documented in this encounterUniversity Hospitals Cleveland Medical Center06-28-2022 History of Present illness Narrative* Eliazar Gutpa RT(R) - 11/14/2021 7:30 AM EDT Radiology [...] 7:43 AM documented in this encounterUniversity Hospitals Cleveland Medical Center04-29-2022 History of Present illness Narrative* Jessica Clarke PA-C - 09/15/2021 11:19 AM EDT Images from the original note were not included. [facility] FOR MULTIPLE SCLEROSIS FOLLOWUP/ESTABLISHED PATIENT VIRTUAL VISIT [...] - mood worse Fred Gracia is new [employer]NANCE PCP - changed anxiety and depression meds [...] locally. Asking about switching infusions to Antony Morton REVIEW OF SYSTEMS: Mood: PHQ9 responses reviewed and appear below Bladder: colonoscopy recently Pain:reviewed on nursing intake documentation Neuro-QoL Functions (higher=better functioning) Appointment from 09/15/2021 in [facility] Office Visit from 11/01/2020 in [facility] Office Visit from 07/31/2019 in [facility] Upper Extremity Domain T Score 34 30 41.73 Lower Extremity Domain T Score 37 40 41.61 Cognitive Function Domain T Score 41 36 45 Positive Affect Well Being T Score 40.79 Ability To Participate In Social Roles T Score 43 46 39.92 Satisfaction With Social Roles T Score 36 39 43.36 Neuro-QoL Symptoms (higher=worse symptoms) Appointment from 09/15/2021 in [facility] Office Visit from 11/01/2020 in [facility] Office Visit from 07/31/2019 in [facility] Sleep Domain T Score [...] Procedure Laterality Date CARPAL TUNNEL 2004/2005 bilateral RX ECTOP PREG BY LAPAROSCOPE MEDICATIONS [...] available 4. Consult OT - [facility] at [place] 5. Continue with PCP as planned I spent a total of 20 minutes on the date of the service which included preparing to see the patient, [id number]-saly patient care, completing clinical documentation, obtaining and/or reviewing separately obtained history, counseling and educating the patient/family/caregiver, ordering medications, manuel ts, or procedures and communicating results to the patient/family/caregiver. Jessica Clarke PA-C documented in this encounterUniversity Hospitals Cleveland Medical Center04-19-2022 [facility] noteMer[facility] Evaluation [facility]* Encounter Date Diagnosis Assessment Notes Treatment Notes Treatment Clinical Notes Jul, Constipation (ICD-10 - K59.00) Jul, Rectal bleeding (ICD-10 - K62.5) Jul, Rectal pain (ICD-10 - K62.89) Sample of Recticare cream given to patient Jul, Change in stool caliber (ICD-10 - R19.4) Alford Herrenschmiede Other Evaluation + Plan note Future Appointments Appointment Date:02/10/2024 03:00:00 PM Scheduled Provider: Location:[facility] Surgical Services Appointment Type:Surgery [facility] Evaluation + Plan note Future Appointments Appointment Date:02/17/2025 08:30:00 AM Scheduled Provider:Silvia Bustos PA-C Location:[facility] Appointment Type:URO Office Visit [facility] evaluation noteNo assessment information available [facility] Work Phone: Evaluation note* Diagnosis Multiple sclerosis, relapsing-remitting (HCC) Multiple sclerosis documented in this encounter [facility] note* Diagnosis Multiple sclerosis (HCC)- Primary Multiple sclerosis Multiple sclerosis, relapsing-remitting (HCC) Multiple sclerosis documented in this encounter [facility] noteNo InformationNort Herrenschmiede Other Evaluation note* Diagnosis Multiple sclerosis, relapsing-remitting (HCC) Multiple sclerosis documented in this encounter [facility] note* Diagnosis Multiple sclerosis, relapsing-remitting (HCC)- Primary Multiple sclerosis documented in this encounter [facility] note* Diagnosis Encounter for screening mammogram for breast cancer documented in this encounter [facility] note* Diagnosis Multiple sclerosis, relapsing-remitting (HCC) Multiple sclerosis documented in this encounter [facility] note* Diagnosis Multiple sclerosis (HCC)- Primary Multiple sclerosis documented in this encounter [facility]* Diagnosis Multiple sclerosis, relapsing-remitting (HCC)- Primary Multiple sclerosis documented in this encounter [facility]* Diagnosis Multiple sclerosis, relapsing-remitting (HCC)- Primary Multiple sclerosis documented in this encounter [facility]* Diagnosis Encounter for screening mammogram for breast cancer documented in this encounter [facility]* Diagnosis Multiple sclerosis (HCC)- Primary Multiple sclerosis documented in this encounter [facility]* Diagnosis Multiple sclerosis (CMS/HCC)- Primary Multiple sclerosis Primary hypertension (CMS/HCC) Unspecified essential hypertension Anxiety and depression (CMS/HCC) COPD with exacerbation (CMS/HCC) Non-recurrent acute suppurative otitis media of left ear without spontaneous rupture of tympanic membrane [facility] Diagnosis Cervical disc disorder with radiculopathy- Primary Brachial neuritis or radiculitis nos Cervical stenosis of spine Spinal stenosis in cervical region Chronic neck pain Cervicalgia documented in this encounter [facility]* Diagnosis Multiple sclerosis (HCC)- Primary Multiple sclerosis documented in this encounter [facility]* Diagnosis Cervical stenosis of spine- Primary Spinal stenosis in cervical region documented in this encounter [facility]* Diagnosis Left arm weakness- Primary Other musculoskeletal symptoms referable to limbs documented in this encounter [facility]* Diagnosis Multiple sclerosis (HCC)- Primary Multiple sclerosis Vitamin D deficiency Unspecified vitamin D deficiency documented in this encounter [facility]* Diagnosis S/P arthroscopy of left [...] left shoulder- Primary [facility]* Diagnosis Class 3 severe [...] other sinus- Primary documented in this encounter [facility]* Diagnosis Class 3 severe [...] and depression (CMS/HCC) documented in this encounter [facility]* Diagnosis Pre-op testing- Primary Unspecified pre-operative examination Rotator cuff impingement syndrome of left shoulder documented in this encounter [facility]* Diagnosis Diverticulitis- Primary Diverticulitis [...] of left shoulder documented in this encounter [facility]* Diagnosis Multiple sclerosis (CMS/HCC)- Primary Multiple sclerosis Rotator cuff impingement syndrome of left shoulder- Primary documented in this encounter [facility]* Diagnosis Class 3 severe [...] Other abnormal blood chemistry Anxiety and depression ([facility]) Contact with and (suspected) exposure to viral [...] (male)(female) Yeast dermatitis documented [facility] encounter [facility]* Diagnosis Dermatitis associated with moisture- Primary Pressure injury of left buttock, stage 2 (CMS-HCC) [facility] Diagnosis Altered mental status, unspecified [...] anxiety disorder with panic attacks Multiple sclerosis ([facility]-HCC) Multiple sclerosis [facility]* Diagnosis Brain tumor ([facility]-HCC)- Primary Neoplasm of unspecified nature of brain Double vision Diplopia [facility] Diagnosis Glioblastoma (CMS-HCC)- Primary Malignant neoplasm of brain, unspecified site [facility] Diagnosis GBM (glioblastoma multiforme) ([facility]-HCC)- Primary Malignant neoplasm of brain, unspecified site [facility] Diagnosis GBM (glioblastoma multiforme) (CMS-HCC)- Primary Malignant neoplasm of brain, unspecified site documented in this encounter [facility] Diagnosis GBM (glioblastoma multiforme) ([facility])- Primary Malignant neoplasm of brain, unspecified site documented in this encounter [facility] N[facility]ative - Reported* Type Description Date Surgical History ectopic Surgical History tubal ligation Surgical History caprpal tunnel release [employer] Other History general Narrative - Reported* Type Description Date Surgical History ectopic Surgical History tubal ligation Surgical History caprpal tunnel release Hospitalization History see above [employer] Other Hospital course Narrative No data available for this section [facility] Hospital Discharge instructions No data available for this section [facility] InstructionsNot on filedocumented in this encounter [facility] filedocumented in this encounter [facility] on filedocumented in this encounter [facility] on filedocumented in this encounter [facility] filedocumented in this encounter [facility] on filedocumented in this encounter [facility] on filedocumented in this encounter [facility]Not on filedocumented in this encounter [facility]ructionsNot on filedocumented in this encounter [facility] No data available for this section [facility] Reason for referral (narrative)* Diagnostic Procedure Only (Routine) - Pending Review Specialty Diagnoses / Procedures Referred By Atilio carbone Referred To Contact [facility] Diagnoses Encounter for screening mammogram for breast cancer Procedures ALIYA SCREENING SCREENING MAMMOGRAPHY BI 2-VIEW BREAST INC CAD Karla, Mazen, MD [address] [place] [address] [facility] [address] [place] [address] Referral ID Status Reason Start Date Expiration Date Visits Requested Visits Authorized [id number] Pending Review Auto-Generat ed Referral 11/15/2021 12/15/2022 1 1 [facility] for referral (narrative)* Diagnostic Procedure Only (Routine) - Pending Review Specialty Diagnoses / Procedures Referred By Anishaac t Referred To Contact [facility] Diagnoses Encounter for screening mammogram for breast cancer Procedures ALIYA SCREENING SCREENING MAMMOGRAPHY BI 2-VIEW BREAST INC Valdez Cohen MD [address] [place] [address] [facility] [address] [place] [address] Referral ID Status Reason Start Date Expiration Date Visits Requested Visits Authorized [id number] Pending Review Auto-Generat ed Referral 10/17/2022 11/16/2023 1 1 [facility] for referral (narrative)* Consultation (Routine) Specialty Diagnoses / Procedures Referred By Atilio t Referred To Contact Neurology [address] [address] Aron Chinchilla MD [address] [facility] [address] [place] [address] Referral ID Status Reason Start Date Expiration Date V isits Requested Visits Authorized [facility]ty Services [facility] ([facility]arrative)No reason for referral [facility] Work Phone: Reason for visit NarrativeREFERRED BY FRED GRACIA FOR CONSTIPATION, (REFERRAL NOTE RECEIVED)[employer] Other Reason for visit Narrative* Rehabilitation - Outpatient (Routine) - Authorized Specialty Diagnoses / Procedures Referred By Atilio carbone Referred To Contact Physical Therapy Diagnoses S/P arthroscopy of left shoulder Procedures TX OFFICE/OUTPATIENT NEW HIGH MDM 60 MINUTES Eliazar Brooks, DO [address] [place] [address] Phone: tel: fax: Aria Kumar PT Referral ID Status Reason Start Date Expiration Date Visits Requested Visits Authorized [id number] Authorized Specialty Services Required 04/10/2024 12 12 [facility] Healthcare Summary Purpose Family History Relationship Condition [...] Comments 09/19/2024 4:15 AM 09/29/2024 2:25 AM Reason for Referral Specialty Diagnoses / Procedures Referred By Atilio carbone Referred To Contact [facility] Diagnoses Multiple sclerosis, relapsing-remitting (HCC) Procedures CONSULT TO CAR REPAIR SUPERVISOR OCCUPATIONAL THERAPY EVAL HIGH COMPLEX 60 MINS Jessica Clarke PA-C [address] [place] [address] [facility] [address] [place] [address] Referral ID Status Reason Start Date Expiration Date Visits Requested Visits Authorized [id number] Pending Review Auto-Generat ed Referral 09/15/2021 09/15/2022 1 1 Specialty Diagnoses / Procedures Referred By Contac t Referred To Contact MR IMAGING Diagnoses Multiple sclerosis, relapsing-remitting (HCC) Procedures MRI BRAIN WO/W IVCON MRI BRAIN BRAIN STEM W/O W/CONTRAST MATERIAL Jessica Clarke PA-C [address] [place] [id number] Mr Imaging Referral ID Status Reason Start Date Expiration Date Visits Requested Visits Authorized [id number] Pending Review Auto-Generat ed Referral 09/15/2021 10/15/2022 1 1 Referral ID Status Reason Start Date Expiration Date V isits Requested Visits Authorized [id number] Closed Auto-Generate d Referral 09/15/2021 11/25/2021 1 1 Specialty Diagnoses / Procedures Referred By Contac t Referred To Contact [facility] IMAGING Diagnoses Multiple sclerosis, relapsing-remitting (HCC) Procedures MRI BRAIN WO/W IVCON MRI BRAIN BRAIN STEM W/O W/CONTRAST MATERIAL Sarthak Escobar MD, PhD [address] [place] [address] Mr Imaging Referral ID Status Reason Start Date Expiration Date Visits Requested Visits Authorized [id number] Pending Review Auto-Generat ed Referral 11/14/2021 12/14/2022 1 1 Specialty Diagnoses / Procedures Referred By Contac t Referred To Contact [facility] IM[facility] Diagnoses Multiple sclerosis, relapsing-remitting (HCC) Procedures MRI CERVICAL SPINE WO/W IVCON MRI SPINAL CANAL CERVICAL W/O & W/CONTR MATRL Jessica Clarke PA-C [address] [place] [address] Mr Imaging Referral ID Status Reason Start Date Expiration Date Visits Requested Visits Authorized [id number] Pending Review Auto-Generat ed Referral 08/30/2022 09/29/2023 1 1 Referral ID Status Reason Start Date Expiration Date Visits Requested Visits Authorized [id number] Pending Review Auto-Generat ed Referral 08/30/2022 09/29/2023 1 1 Specialty Diagnoses / Procedures Referred By Contac t Referred To Contact [facility] Diagnoses Cervical disc disorder with radiculopathy Procedures CONSULT TO PHYSICAL THERAPY PHYSICAL THERAPY EVALUATION HIGH COMPLEX [address] [place] [address] AALIYAH DOYLE [address] [place] [address] [facility] [address] [place] [address] Referral ID Status Reason Start Date Expiration Date Visits Requested Visits Authorized [id number] Pending Review Auto-Generat ed Referral 07/10/2023 07/09/2024 1 1 Specialty Diagnoses / Procedures Referred By Contac t Referred To Contact [facility] IMAGING Diagnoses Multiple sclerosis (HCC) Procedures MRI BRAIN WO/W IVCON MRI BRAIN BRAIN STEM W/O W/CONTRAST MATERIAL Jessica Clarke PA-C [address] [place] [phone] Mr Imaging [place] [address] Referral ID Status Reason Start Date Expiration Date Visits Requested Visits Authorized [id number] Pending Review Auto-Generat ed Referral 07/16/2023 08/14/2024 1 1 Specialty Diagnoses / Procedures Referred By Contac t Referred To Contact Diagnoses Cervical stenosis of spine Procedures CONSULT TO SPINE SURGERY OFFICE/OUTPATIENT NEW [facility] MDM 60 MINUTES Jessica Clarke PA-C [address] [place] [address] Referral ID Status Reason Start Date Expiration Date Visits Requested Visits Authorized [id number] Authorized PCP Requested Referral 08/22/2023 08/21/2024 1 1 Specialty Diagnoses / Procedures Referred By Contac t Referred To Contact MR IMAGING Diagnoses Left arm weakness Procedures MRI CERVICAL SPINE WO IVCON MRI SPINAL CANAL CERVICAL W/O CONTRAST Lashaun Banda PA-C [address] [place] [address] Mr Imaging [facility] Referral ID Status Reason Start Date Expiration Date Visits Requested Visits Authorized [id number] Pending Review Auto-Generat ed Referral 09/06/2023 10/05/2024 1 1 Specialty Diagnoses / Procedures Referred By Contac t Referred [facility] Contact [facility] Diagnoses Left arm weakness Procedures EMG(NEURO/NI) NERVE CONDUCTION STUDIES 9-10 STUDIES Lashaun Vasquez PA-C [address] [place] [address] Neu[facility] [address] [place] [address] Referral ID Status Reason Start Date Expiration Date Visits Requested Visits Authorized [id number] Pending Review Auto-Generat ed Referral 09/06/2023 09/05/2024 1 1 Specialty Diagnoses / Procedures Referred By Contac t Referred To Contact XR IMAGING Diagnoses Left arm weakness Procedures XR CERV OTHER 4V AP/LAT/FLX/EXT RADEX SPINE CERVICAL 4 OR 5 VIEWS Lashaun Vasquez PA-C [address] [place] [address] Xr Imaging [place] [address] Referral ID Status Reason Start Date Expiration Date Visits Requested Visits Authorized [id number] Pending Review Auto-Generat ed Referral 09/06/2023 10/05/2024 1 1 Specialty Diagnoses / Procedures Referred By Contac t Referred To Contact Physical Therapy Diagnoses S/P arthroscopy of left shoulder Procedures TX OFFICE/OUTPATIENT NEW HIGH MDM 60 MINUTES Eliazar Brooks, DO [address] [place] [address] Aria Kumar PT Referral ID Status Reason Start Date Expiration Date Visits Requested Visits Authorized [id number] Pending Review Specialty Services Required 02/25/2024 08/23/2024 [...] 5pm Unknown October 17, 2024 9:45a m Chief Complaint Admit Date Unknown August 22, 2024 10:4 5pm Unknown October 17, 2024 9:45a m CKD 4 November 19, 2024 2:21p m Reason for Visit Admit Date BRANDON (acute kidney injury) November 19, 2024 2:21pm Hyperlipemia November 19, 2024 2:21p m Hypertension November 19, 2024 2:21p m Multiple sclerosis November 19, 2024 2:21p m Medications Administered Section Inactive Administered Medications [...] and content) DATE CREATED AUTHOR 11/12/2017 [facility] [employer] [facility] DATE CREATED AUTHOR AUTHOR'S ORGANIZ ATION 11/13/2017 [facility] DATE CREATED AUTHOR AUTHOR'S ORGANIZ ATION 10/02/2022 [facility] DATE CREATED AUTHOR AUTHOR'S ORGANIZ ATION 12/21/2023 [facility] DATE CREATED AUTHOR AUTHOR'S ORGANIZ ATION 02/07/2024 [facility] DATE CREATED AUTHOR AUTHOR'S ORGANIZ ATION 08/19/2024 [facility] DATE CREATED AUTHOR AUTHOR'S ORGANIZ ATION 09/03/2024 [facility] DATE CREATED AUTHOR AUTHOR'S ORGANIZ ATION 09/24/2024 [facility] DATE CREATED AUTHOR AUTHOR'S ORGANIZ ATION 10/18/2024 [facility] DATE CREATED AUTHOR AUTHOR'S ORGANIZ ATION 10/19/2024 [facility] DATE CREATED AUTHOR AUTHOR'S ORGANIZ ATION 11/15/2024 [facility] DATE CREATED AUTHOR AUTHOR'S ORGANIZ ATION 11/21/2024 [facility] DATE CREATED AUTHOR AUTHOR'S ORGANIZ ATION 11/25/2024 [facility] Medical History (unrecognize d section and content) Includes: Medical History in patient's chartNo Medical History Recorded Evaluations & Outcomes (unre cognized section and content) Includes: Evaluations & Outcomes for active GoalsNo Outcomes Recorded Care Teams (unrecognized sec tion and content) Team Status: Inactive Member Role Status Dates Services Family [facility] Primary Care Provider Active Liyah Rosa MD Attending Provider Active Team Status: Active Member Role Status Dates Services Family [facility] Primary Care Provider Active Cab Worker Relationship Specialty Start Date End Date Valdez Acosta MD [address] [place] [address] PCP - General Internal Medicine 11/01/20 Cab Worker Relationship Specialty Start Date End Date Valdez Acosta MD [address] [place] [address] PCP - General Internal Medicine 11/01/20 Cab Worker Relationship Specialty Start Date End Date Valdez Acosta MD [address] [place] [address] PCP - General Internal Medicine 11/01/20 Cab Worker Relationship Specialty Start Date End Date Valdez Acosta MD [address] [place] [address] PCP - General Internal Medicine 11/01/20 Cab Worker Relationship Specialty Start Date End Date Valdez Acosta MD [address] [place] [address] PCP - General Internal Medicine 11/01/20 Cab Worker Relationship Specialty Start Date End Date Valdez Acosta MD [address] [place] [address] PCP - General Internal Medicine 11/01/20 Cab Worker Relationship Specialty Start Date End Date Valdez Acosta MD [address] [place] [address] PCP - General Internal Medicine 11/01/20 Cab Worker Relationship Specialty Start Date End Date Valdez Acosta MD [address] [place] [address] PCP - General Internal Medicine 11/01/20 Cab Worker Relationship Specialty Start Date End Date Valdez Acosta MD [address] [place] [address] PCP - General Internal Medicine 11/01/20 Cab Worker Relationship Specialty Start Date End Date Valdez Acosta MD [address] [place] [address] PCP - General Internal Medicine 11/01/20 Cab Worker Relationship Specialty Start Date End Date Valdez Acosta MD [address] [place] [address] PCP - General Internal Medicine 11/01/20 Cab Worker Relationship Specialty Start Date End Date Valdez Acosta MD [address] [place] [address] PCP - General Internal Medicine 11/01/20 Cab Worker Relationship Specialty Start Date End Date Valdez Acosta MD [address] [place] [address] PCP - General Internal Medicine 11/01/20 Cab Worker Relationship Specialty Start Date End Date Valdez Acosta MD [address] [place] [address] PCP - General Internal Medicine 11/01/20 Cab Worker Relationship Specialty Start Date End Date Maxim Lanza MD [address] [place] [address] PCP - General Family Medicine 04/22/23 Fred Gracia NP [address] [place] [address] Nurse Practitioner Family Medicine 05/20/22 Cab Worker Relationship Specialty Start Date End Date Maxim Lanza MD [address] [place] [address] PCP - General Family Medicine 04/22/23 Fred Gracia NP [address] [place] [address] Nurse Practitioner Family Medicine 05/20/22 Cab Worker Relationship Specialty Start Date End Date Valdez Acosta MD [address] [place] [address] PCP - General Internal Medicine 11/01/20 Cab Worker Relationship Specialty Start Date End Date Valdez Acosta MD [address] [place] [address] PCP - General Internal Medicine 11/01/20 Cab Worker Relationship Specialty Start Date End Date Valdez Acosta MD [address] [place] [address] PCP - General Internal Medicine 11/01/20 Cab Worker Relationship Specialty Start Date End Date Valdez Acosta MD [address] [place] [address] PCP - General Internal Medicine 11/01/20 Cab Worker Relationship Specialty Start Date End Date Valdez Acosta MD [address] [place] [address] PCP - General Internal Medicine 11/01/20 Cab Worker Relationship Specialty Start Date End Date Valdez Acosta MD [address] [place] [address] PCP - General Internal Medicine 11/01/20 Cab Worker Relationship Specialty Start Date End Date Valdez Acosta MD [address] [place] [address] PCP - General Internal Medicine 11/01/20 Cab Worker Relationship Specialty Start Date End Date Maxim Lanza MD [address] [place] [address] PCP - General Family Medicine 07/15/23 Fred Gracia NP [address] [place] [address] Primary Care Provider Family Medicine 05/20/22 Cab Worker Relationship Specialty Start Date End Date Maxim Lanza MD [address] [place] [address] PCP - General Family Medicine 07/15/23 Fred Gracia NP [address] [place] [address] Primary Care Provider Family Medicine 05/20/22 Cab Worker Relationship Specialty Start Date End Date Maxim Lanza MD [address] [place] [address] PCP - General Family Medicine 07/15/23 Fred Gracia NP [address] [place] [address] Primary Care Provider Family Medicine 05/20/22 Cab Worker Relationship Specialty Start Date End Date Maxim Lanza MD [address] [place] [address] PCP - General Family Medicine 07/15/23 Fred Gracia NP [address] [place] [address] Primary Care Provider Family Medicine 05/20/22 Cab Worker Relationship Specialty Start Date End Date Maxim Lanza MD [address] [place] [address] PCP - General Family Medicine 07/15/23 Fred Gracia NP [address] [place] [address] Primary Care Provider Family Medicine 05/20/22 Cab Worker Relationship Specialty Start Date End Date Maxim Lanza MD [address] [place] [address] PCP - General Family Medicine 07/15/23 Fred Gracia NP [address] [place] [address] Primary Care Provider Family Medicine 05/20/22 Cab Worker Relationship Specialty Start Date End Date Maxim Lanza MD [address] [place] [address] PCP - General Family Medicine 07/15/23 Fred Gracia NP [address] [place] [address] Primary Care Provider Family Medicine 05/20/22 Cab Worker Relationship Specialty Start Date End Date Maxim Lanza MD [address] [place] [address] PCP - General Family Medicine 07/15/23 Fred Gracia NP [address] [place] [address] Primary Care Provider Family Medicine 05/20/22 Cab Worker Relationship Specialty Start Date End Date Maxim Lanza MD [address] [place] [address] PCP - General Family Medicine 07/15/23 Fred Gracia NP [address] [place] [address] Primary Care Provider Family Medicine 05/20/22 Cab Worker Relationship Specialty Start Date End Date Maxim Lanza MD [address] [place] [address] PCP - General Family Medicine 07/15/23 Fred Gracia NP [address] [place] [address] Primary Care Provider Family Medicine 05/20/22 Cab Worker Relationship Specialty Start Date End Date Maxim Lanza MD [address] [place] [address] PCP - General Family Medicine 07/15/23 Fred Gracia NP [address] [place] [address] Primary Care Provider Family Medicine 05/20/22 Cab Worker Relationship Specialty Start Date End Date Maxim Lanza MD [address] [place] [address] PCP - General Family Medicine 07/15/23 Fred Gracia NP [address] [place] [address] Primary Care Provider [facility] Medicine 05/20/22 Cab Worker Relationship Specialty Start Date End Date Maxim Lanza MD [address] [place] [address] PCP - General Family Medicine 07/15/23 Fred Gracia NP [address] [place] [address] Primary Care Provider [facility] 05/20/22 Cab Worker Relationship Specialty Start Date End Date Maxim Lanza MD [address] [place] [address] PCP - General Family Medicine 07/15/23 Fred Gracia NP [address] [place] [address] Primary Care Provider [facility] 05/20/22 Cab Worker Relationship Specialty Start Date End Date Maxim Lanza MD [address] [place] [address] PCP - General Family Medicine 07/15/23 Fred Gracia NP [address] [place] [address] Primary Care Provider [facility] Medicine 05/20/22 Cab Worker Relationship Specialty Start Date End Date Maxim Lanza MD [address] [place] [address] PCP - General Family Medicine 07/15/23 Fred Gracia NP [address] [place] [address] Primary Care Provider Family Medicine 05/20/22 Cab Worker Relationship Specialty Start Date End Date Maxim Lanza MD [address] [place] [address] PCP - General Family Medicine 07/15/23 Fred Gracia NP [address] [place] [address] Primary Care Provider Family Medicine 05/20/22 Cab Worker Relationship Specialty Start Date End Date Maxim Lanza MD [address] [place] [address] PCP - General Family Medicine 07/15/23 Fred Gracia NP [address] [place] [address] Primary Care Provider Family Medicine 05/20/22 Cab Worker Relationship Specialty Start Date End Date Maxim Lanza MD [address] [place] [address] PCP - General Family Medicine 07/15/23 Fred Gracia NP [address] [place] [address] Primary Care Provider Family Medicine 05/20/22 Cab Worker Relationship Specialty Start Date End Date Valdez Acosta MD [address] [place] [address] PCP - General Internal Medicine 11/01/20 Sherrie Smith PA-C [address] [place] [address] [id number] Web Development Director Internal Medicine 04/26/24 Elizabeth Lopez, MOTORCOACH OPERATOR.HEAD OF DESIGN [address] [place] [address] [id number] Web Development Director Family Medicine 04/26/24 Cab Worker Relationship Specialty Start Date End Date Maxim Lanza MD [address] [place] [place] [address] PCP - General Family Medicine 07/15/23 Fred Gracia NP [address] [place] [address] Primary Care Provider Family Medicine 05/20/22 Cab Worker Relationship Specialty Start Date End Date Maxim Lanza MD [address] [place] [address] PCP - General Family Medicine 07/15/23 Fred Gracia NP [address] [place] [address] Primary Care Provider Family Medicine 05/20/22 Cab Worker Relationship Specialty Start Date End Date Maxim Lanza MD [address] [place] [address] PCP - General Family Medicine 07/15/23 Fred Gracia NP [address] [place] [address] Primary Care Provider Family Medicine 05/20/22 Cab Worker Relationship Specialty Start Date End Date Maxim Lanza MD [address] [place] [address] PCP - General Family Medicine 07/15/23 Fred Gracia NP [address] [place] [address] Primary Care Provider Family Medicine 05/20/22 Cab Worker Relationship Specialty Start Date End Date Maxim Lanza MD [address] [place] [address] PCP - General Family Medicine 07/15/23 Fred Gracia NP [address] [place] [address] Primary Care Provider Family Medicine 05/20/22 Cab Worker Relationship Specialty Start Date End Date Maxim Lanza MD [address] [place] [address] PCP - General Family Medicine 07/15/23 Fred Gracia NP [address] [place] [address] Primary Care Provider Family Medicine 05/20/22 Cab Worker Relationship Specialty Start Date End Date Maxim Lanza MD [address] [place] [address] PCP - General Family Medicine 07/15/23 Fred Gracia NP [address] [place] [address] Primary Care Provider Family Medicine 05/20/22 Cab Worker Relationship Specialty Start Date End Date Maxim Lanza MD [address] [place] [address] PCP - General Family Medicine 07/15/23 Fred Gracia NP [address] [place] [address] Primary Care Provider Family Medicine 05/20/22 Cab Worker Relationship Specialty Start Date End Date Maxim Lanza MD [address] [place] [address] PCP - General Family Medicine 07/15/23 Fred Gracia NP [address] [place] [address] Primary Care Provider Family Medicine 05/20/22 Cab Worker Relationship Specialty Start Date End Date Maxim Lanza MD [address] [place] [address] PCP - General Family Medicine 07/15/23 Fred Gracia NP [address] [place] [address] Primary Care Provider Family Medicine 05/20/22 Cab Worker Relationship Specialty Start Date End Date Maxim Lanza MD [address] [place] [address] PCP - General Family Medicine 07/15/23 Fred Gracia NP [address] [place] [address] Primary Care Provider [facility] Medicine 05/20/22 Team Status: Inactive Member Role Status Dates Tripp Gruber MD Attending Provider Active St art: August 22, 2024 End: August 22, 2024 Cab Worker Relationship Specialty Start Date End Date Maxim Lanza MD [address] [place] [address] PCP - General Family Medicine 07/15/23 Fred Gracia NP [address] [place] [address] Primary Care Provider [facility] 05/20/22 Cab Worker Relationship Specialty Start Date End Date Fred Gracia, MOTORCOACH OPERATOR-HEAD OF DESIGN [address] [place] [address] PCP - General Nurse Practitioner 08/28/24 Cab Worker Relationship Specialty Start Date End Date Maxim Lanza MD [address] [place] [address] PCP - General Family Medicine 07/15/23 Fred Gracia NP [address] [place] [phone] Primary Care Provider Family Medicine 05/20/22 Cab Worker Relationship Specialty Start Date End Date Fred Gracia APRN-HEAD OF DESIGN PCP - General Nurse Practitioner 08/28/24 Cab Worker Relationship Specialty Start Date End Date Fred Gracia APRN-HEAD OF DESIGN PCP - General Nurse Practitioner 08/28/24 Cab Worker Relationship Specialty Start Date End Date Maxim Lanza MD [address] [place] [id number] PCP - General Family Medicine 07/15/23 Fred Gracia NP [address] [place] [phone] Primary Care Provider Family Medicine 05/20/22 Team Status: Inactive Member Role Status Dates Alonzo Holguin MD Attending Provider Active Sta rt: October 17, 2024 End: October 17, 2024 Cab Worker Relationship Specialty Start Date End Date Maxim Lanza MD [address] [place] [phone] PCP - General Family Medicine 07/15/23 Fred Gracia NP [address] [place] [phone] Primary Care Provider Family Medicine 05/20/22 Cab Worker Relationship Specialty Start Date End Date Fred Gracia APRN-HEAD OF DESIGN PCP - General Nurse Practitioner 08/28/24 Cab Worker Relationship Specialty Start Date End Date Fred Gracia [facility] PCP - General Nurse Practitioner 08/28/24 Cab Worker Relationship Specialty Start Date End Date Fred Gracia [facility] PCP - General Nurse Practitioner 08/28/24 Cab Worker Relationship Specialty Start Date End Date Fred Gracia [facility] PCP - General Nurse Practitioner 08/28/24 Cab Worker Relationship Specialty Start Date End Date Fred Gracia [facility] PCP - General Nurse Practitioner 08/28/24 Cab Worker Relationship Specialty Start Date End Date Fred Gracia [facility] PCP - General Nurse Practitioner 08/28/24 Cab Worker Relationship Specialty Start Date End Date Fred Gracia [facility] PCP - General Nurse Practitioner 08/28/24 Team Status: Active Member Role Status Dates NON STAFF Primary Care Provider Active Team Status: Inactive Member Role Status Dates Storm Chapman MD Attending Provider Active Start : November 19, 2024 End: November 19, 2024 NON STAFF Primary Care Provider Active Start: November 19, 2024 End: November 19, 2024 Cab Worker Relationship Specialty Start Date End Date Fred Gracia [facility] PCP - General Nurse Practitioner 08/28/24 Cab Worker Relationship Specialty Start Date End Date Fred Gracia APRN-CNP PCP - General Nurse Practitioner 08/28/24 Cab Worker Relationship Specialty Start Date End Date Fred Gracia APRN-CNP PCP - General Nurse Practitioner 08/28/24 Goals [...] any alcohol or drug abuse patient.[facility] CenterIn the event this information is protected by the Federal Confidentiality of Alcohol and Drug Abuse Patient Records regulations: The Federal rules restrict any use of the information to criminally investigate or prosecute any alcohol or drug abuse patient.[facility] CenterIn the event this information is protected by the Federal Confidentiality of Alcohol and Drug Abuse Patient Records regulations: The Federal rules restrict any use of the information to criminally investigate or prosecute any alcohol or drug abuse patient.[facility] CenterIn the event this information is protected by the Federal Confidentiality of Alcohol and Drug Abuse Patient Records regulations: The Federal rules restrict any use of the information to criminally investigate or prosecute any alcohol or drug abuse patient.[facility] CenterIn the event this information is protected by the Federal Confidentiality of Alcohol and Drug Abuse Patient Records regulations: The Federal rules restrict any use of the information to criminally investigate or prosecute any alcohol or drug abuse patient.[facility] CenterIn the event this information is protected by the Federal Confidentiality of Alcohol and Drug Abuse Patient Records regulations: The Federal rules restrict any use of the information to criminally investigate or prosecute any alcohol or drug abuse patient.[facility] CenterIn the event this information is protected by the Federal Confidentiality of Alcohol and Drug Abuse Patient Records regulations: The Federal rules restrict any use of the information to criminally investigate or prosecute any alcohol or drug abuse patient.[facility] CenterIn the event this information is protected by the Federal Confidentiality of Alcohol and Drug Abuse Patient Records regulations: The Federal rules restrict any use of the information to criminally investigate or prosecute any alcohol or drug abuse patient.[facility] CenterIn the event this information is protected by the Federal Confidentiality of Alcohol and Drug Abuse Patient Records regulations: The Federal rules restrict any use of the information to criminally investigate or prosecute any alcohol or drug abuse patient.[facility] CenterIn the event this information is protected by the Federal Confidentiality of Alcohol and Drug Abuse Patient Records regulations: The Federal rules restrict any use of the information to criminally investigate or prosecute any alcohol or drug abuse patient.[facility] CenterIn the event this information is protected by the Federal Confidentiality of Alcohol and Drug Abuse Patient Records regulations: The Federal rules restrict any use of the information to criminally investigate or prosecute any alcohol or drug abuse patient.[facility] CenterIn the event this information is protected by the Federal Confidentiality of Alcohol and Drug Abuse Patient Records regulations: The Federal rules restrict any use of the information to criminally investigate or prosecute any alcohol or drug abuse patient.[facility] CenterIn the event this information is protected by the Federal Confidentiality of Alcohol and Drug Abuse Patient Records regulations: The Federal rules restrict any use of the information to criminally investigate or prosecute any alcohol or drug abuse patient.[facility] CenterIn the event this information is protected by the Federal Confidentiality of Alcohol and Drug Abuse Patient Records regulations: The Federal rules restrict any use of the information to criminally investigate or prosecute any alcohol or drug abuse patient.[facility] CenterIn the event this information is protected by the Federal Confidentiality of Alcohol and Drug Abuse Patient Records regulations: The Federal rules restrict any use of the information to criminally investigate or prosecute any alcohol or drug abuse patient.[facility] CenterIn the event this information is protected by the Federal Confidentiality of Alcohol and Drug Abuse Patient Records regulations: The Federal rules restrict any use of the information to criminally investigate or prosecute any alcohol or drug abuse patient.[facility] CenterIn the event this information is protected by the Federal Confidentiality of Alcohol and Drug Abuse Patient Records regulations: The Federal rules restrict any use of the information to criminally investigate or prosecute any alcohol or drug abuse patient.[facility] CenterIn the event this information is protected by the Federal Confidentiality of Alcohol and Drug Abuse Patient Records regulations: The Federal rules restrict any use of the information to criminally investigate or prosecute any alcohol or drug abuse patient.[facility] CenterIn the event this information is protected by the Federal Confidentiality of Alcohol and Drug Abuse Patient Records regulations: The Federal rules restrict any use of the information to criminally investigate or prosecute any alcohol or drug abuse patient.[facility] CenterIn the event this information is protected by the Federal Confidentiality of Alcohol and Drug Abuse Patient Records regulations: The Federal rules restrict any use of the information to criminally investigate or prosecute any alcohol or drug abuse patient.[facility] CenterIn the event this information is protected by the Federal Confidentiality of Alcohol and Drug Abuse Patient Records regulations: The Federal rules restrict any use of the information to criminally investigate or prosecute any alcohol or drug abuse patient.[facility] CenterIn the event this information is protected by the Federal Confidentiality of Alcohol and Drug Abuse Patient Records regulations: The Federal rules restrict any use of the information to criminally investigate or prosecute any alcohol or drug abuse patient.[facility] CenterIn the event this information is protected by the Federal Confidentiality of Alcohol and Drug Abuse Patient Records regulations: The Federal rules restrict any use of the information to criminally investigate or prosecute any alcohol or drug abuse patient.[facility] CenterIn the event this information is protected by the Federal Confidentiality of Alcohol and Drug Abuse Patient Records regulations: The Federal rules restrict any use of the information to criminally investigate or prosecute any alcohol or drug abuse patient.[facility] CenterIn the event this information is protected by the Federal Confidentiality of Alcohol and Drug Abuse Patient Records regulations: The Federal rules restrict any use of the information to criminally investigate or prosecute any alcohol or drug abuse patient.[facility] CenterIn the event this information is protected by the Federal Confidentiality of Alcohol and Drug Abuse Patient Records regulations: The Federal rules restrict any use of the information to criminally investigate or prosecute any alcohol or drug abuse patient.[facility] CenterIn the event this information is protected by the Federal Confidentiality of Alcohol and Drug Abuse Patient Records regulations: The Federal rules restrict any use of the information to criminally investigate or prosecute any alcohol or drug abuse patient.[facility] CenterIn the event this information is protected by the Federal Confidentiality of Alcohol and Drug Abuse Patient Records regulations: The Federal rules restrict any use of the information to criminally investigate or prosecute any alcohol or drug abuse patient.[facility] CenterIn the event this information is protected by the Federal Confidentiality of Alcohol and Drug Abuse Patient Records regulations: The Federal rules restrict any use of the information to criminally investigate or prosecute any alcohol or drug abuse patient.[facility] Reason for Visit (unrecogniz ed section and content) Reason Comments IV Medication Administration [facility] Specialty Diagnoses / Procedures Referred By Atilio t Referred To Contact Diagnoses Multiple sclerosis (HCC) G35 (ICD-10-CM) - Multiple sclerosis (HCC) Procedures INJECTION, OCRELIZUMAB, 1 MG J2350 - INJECTION, OCRELIZUMAB, 1 MG Sarthak Escobar MD, PhD [address] [place] [address] [facility] [address] [place] [address] Referral ID Status Reason Start Date Expiration Date V isits Requested Visits Authorized [id number] Pending Review 12/06/2020 03/22/2023 4 4 Reason Comments Established Patient Follow-Up Reason Comments Infusion [facility] Referral ID Status Reason Start Date Expiration Date V isits Requested Visits Authorized [id number] Pending Review 12/06/2020 03/01/2022 2 2 Specialty Diagnoses / Procedures Referred By Contac t Referred To Contact MR IMAGING Diagnoses Multiple sclerosis, relapsing-remitting (HCC) Procedures MRI BRAIN WO/W IVCON MRI BRAIN BRAIN STEM W/O W/CONTRAST MATERIAL Jessica Clarke PA-C [address] [place] [id number] Mr Imaging Referral ID Status Reason Start Date Expiration Date V isits Requested Visits Authorized [id number] Closed Auto-Generate d Referral 09/15/2021 11/25/2021 1 1 Reason Comments Established Patient Follow-Up Reason Comments [facility] Specialty Diagnoses / Procedures Referred By Contac t Referred To Contact [facility] Diagnoses Multiple sclerosis, relapsing-remitting (HCC) Procedures 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 Reason Comments Established Patient Follow-Up Reason Comments Patient Update Reason Comments URI Reason Comments Consult Cervical pain Specialty Diagnoses / Procedures Referred By Contac t Referred To Contact [facility] Diagnoses Cervical stenosis of spine Procedures CONSULT TO [facility] OFFICE/OUTPATIENT NEW HIGH MDM 60 MINUTES Jessica Clarke PA-C [address] [place] [address] Referral ID Status Reason Start Date Expiration Date V isits Requested Visits Authorized [id number] Closed PCP Requested Referral 06/13/2023 06/12/2024 1 [...] MDM 60 MINUTES Eliazar Brooks, DO [address] [place] [address] Aria Kumar PT Referral ID Status Reason Start Date Expiration Date Visits Requested Visits Authorized [id number] Pending Review Specialty Services Required 02/25/2024 08/23/2024 [...] altered mental status type Xena Larios MD [address], [facility] [address] [place] [address] Phone: tel: fax: Referral ID Status Reason Start Date Expiration Date Visits Re quested Visits Authorized [id number] 1 1 Reason Onset Date Comments incision 09/29/2024 Reason Comments Follow-up 6 week follow up - t umor resection Reason Onset Date Comments office note 11/11/2024 Reason Onset Date Comments Received referral Radiation consult lvm 11/12/19 Reason Comments New Patient Specialty Diagnoses / Procedures Referred By Atilio t Referred To Contact Oncology / Hematology and Oncology Diagnoses Brain tumor (CMS-HCC) Double vision Reji Garcia, MOTORCOACH OPERATOR-HEAD OF DESIGN [address] [place] [address] Phone: tel: fax: Alcon Khan MD [address] [place] [address] Phone: tel: fax: Referral ID Status Reason Start Date Expiration Date Visits Requested Visits Authorized [id number] Pending Review Specialty Services Required 11/10/2024 11/10/2025 1 1 Scheduled Active and Recently Administ ered Medications [...] medication - verify indication for use. 1400 (Due)2200 (Due) dexAMETHasone (DECADRON) tablet 3 mg(Linked Group [...] for use. 0531 (Given - Provider: Regina Taylor, RN)1440 (Given - Provider: Lida Wright RN)211 (Given - Provider: Elma Moreno RN) 0554 (Given - Provider: Elma Moreno RN)151 (Given - Provider: Taylor Ayala, MOE)2057 (Given - Provider: Elma Moreno, MOE) 0600 (Due) enoxaparin (LOVENOX) syringe 40 mg [...] Minutes, Every 12 hours, First dose on 09/19/24 at 0715, Look-alike/sound-alike medication - verify indication for use. 0530 (New Bag - Provider: Regina Taylor, MOE)0545 (Stop Bag - Provider: Regina Taylor RN) levETIRAcetam (KEPPRA) tablet 500 mg 500 mg, oral, 2 times daily, First dose on 09/27/24 at 1730, Look-alike/sound-alike medication - verify indication for use. 1704 (Given - Provider: Lida Wright RN) 08 (Given - Provider: Taylor Ayala RN)2053 (Given - Provider: Elma Moreno RN) 09 (Due)2099 (Due) metoprolol tartrate (LOPRESSOR) tablet 25 mg 25 mg, oral, 2 times daily, First dose (after last modification) on Sat09/25/24 at 0900, Hold if SBP is less than 110 mmHg, or diastolic BP is less than 70 mmHg. Thank you. Look-alike/sound-alike medication - verify indication for use. 911 (Given - Provider: Lida Wright RN)2117 (Given - Provider: Elma Moreno RN) 828 (Given - Provider: Taylor Ayala RN)2053 (Given - Provider: Elma Moreno RN) 899 (Due)2099 (Due) mirtazapine (REMERON CANDI-TAB) disintegrating tablet 15 mg 15 mg, oral, Nightly, First dose (after last modification) on Maribell 09/24/24 at 2200 2118 (Given - Provider: Elma Moreno RN) 2054 (Given - Provider: Elma Moreno RN) 2199 (Due) sennosides-docusate sodium (SENOKOT-S) 8.6-50 mg 2 tablet 2 tablet, oral, Nightly, First dose (after last modification) on Maribell 09/24/24 at 2200, HOLD for greater than 2 bowel movements in the past 24 hours 2118 (Given - Provider: Elma Moreno RN) 2053 (Given - Provider: Elma Moreno RN) 2199 (Due) Continuous Medication Order 09/27/2024 09/28/2024 09/29/2024 dextrose 2.5 % in water, 1,000 mL infusion 50-150 mL/hr, intravenous, Continuous, Starting on Sat09/19/24 at 0300, For Sodium level 160 mmol/L or zehwbkp=014 mL/hr; 155 to 159 mmol/L=125 mL/hr; 150-154 [...] % (w/v) 29% (w/w) suspension, Starting on Sat09/28/24 at 1438, For 1 dose barium sulfate (VARIBAR NECTAR) 40 % (w/v) suspension 10 mL 10 mL, oral, Once in imaging, contrast, barium sulfate (VARIBAR NECTAR) 40 % (w/v) suspension, Starting on Sat09/28/24 at 1438, For 1 dose barium sulfate (VARIBAR PUDDING) 40 % (w/v), 30% (w/w) oral paste 60 mL (COMPLETED) 60 mL, oral, Once in imaging, contrast, barium sulfate (VARIBAR PUDDING) 40 % (w/v), 30% (w/w) oral paste, Starting on Sat09/28/24 at 1438, For 1 dose 1444 (Given - Provider: Lorna Dias CCC-PIANO PROFESSOR) barium sulfate (VARIBAR THIN HONEY) 40 %(w/v), [...] dose 1444 (Given - Provider: Lorna Dias CCC-PIANO PROFESSOR) bisacodyL (DULCOLAX) suppository 10 mg 10 mg, [...] min PRN, high blood pressure, Starting on 09/23/24 at 1915, For systolic blood pressure greater [...] level 0.45 to 0.5 mmol/L., Starting on Sat09/19/24 at 0258, Recheck magnesium level 4 hours after infusion complete. With each magnesium result continue the replacement orders as needed. magnesium sulfate IVPB 4000 mg/100 mL in iso-osmotic water (40 mg/mL premix) 4,000 mg, intravenous, at 25 mL/hr, Administer over 240 Minutes, As needed, Magnesium level 1.6 mg/dL or less, or Ionized Magnesium level 0.44 mmol/L or less, Starting on Sat09/19/24 at 0258, Recheck magnesium level 4 hours [...] g, oral, Daily PRN, constipation, Starting on Sat09/19/24 at 0413, Look-alike/sound-alike medication - verify indication for use. Dissolve 1 packet (17 gm) in 8 ounces of water, juice, soda, coffee or tea. potassium chloride (K-TAB,KLOR-CON) CR tablet 20-60 mEq(Linked Group 3) 20-60 mEq, oral, As needed, Potassium Supplementation, Starting on Sat09/19/24 at 0258, Progress to oral potassium replacement [...] potassium is more than 4.5, Starting on Sat09/19/24 at 0258, Administer over 4 hours via [...] BE BASED ON THE PRIMARY CLINICAL RECORDS. [employer] [facility]. provides no warranty or guarantee of the accuracy or completeness of information in this document.
[2024-11-27 20:35] LABS: Hematocrit 24.6 % (36.0-48.0); Hemoglobin 7.6 g/dL (12.0-16.0); Mean Corpuscular HGB Conc 30.9 g/dL (29.9-35.2); Mean Corpuscular Hemoglobin 27.0 pg (26.7-34.0); Mean Corpuscular Volume 87.2 fL (81.0-99.0); Platelet Count 177 10^3/uL (150-450); Red Blood Count 2.82 10^6/uL (4.20-5.40); White Blood Count 19.9 10^3/uL (4.0-11.0)
[2024-11-27 20:47] LABS: INR 1.24; Prothrombin Time 12.9 sec (9.0-11.6)
[2024-11-27 20:50] LABS: Alanine Aminotransferase <6 U/L (14-59); Albumin Globulin Ratio 0.4; Albumin Level 1.6 g/dL (3.4-5.0); Alkaline Phosphatase 72 U/L (46-116); Anion Gap 9.5; Aspartate Amino Transferase 16 U/L (15-37); Blood Urea Nitrogen 37.0 mg/dL (7.0-18.0); Calcium 7.8 mg/dL (8.5-10.1); Carbon Dioxide 30.3 mmol/L (21.0-32.0); Chloride 101 mmol/L (98-107); Estimated GFR (African America 19 (>=60 mL/min/1.73m^2); Estimated GFR (Non-African Ame 16 (>=60 mL/min/1.73m^2); Globulin 3.6 g/dL; Glucose 137 mg/dL (74-106); Magnesium 2.1 mg/dL (1.8-2.4); Potassium 3.8 mmol/L (3.5-5.1); Sodium 137 mmol/L (136-145); Total Protein 5.2 g/dL (6.4-8.2)
[2024-11-27 20:53] LABS: Lactate/Lactic Acid 1.2 mmol/L (0.4-2.0)
[2024-11-27 20:54] LABS: Glucose Urine UA NEGATIVE (NEGATIVE)
[2024-11-27 21:02] LABS: Cast Seen? SEEN #/LPF (NONE SEEN); Crystals Seen? None Seen #/HPF (None Seen); Urine Culture Indicated YES-FRMC
--- NOTE | 2024-11-27 21:07 | PC.NURSE ---
NS 1 L that was infusing per EMS is completed.
[2024-11-27 21:08] LABS: Basophils Abs Manual 0.00 10^3/uL (0.00-0.10); Basophils Percent Manual 0.0 % (0.2-2.0); Eosinophils Absolute Manual 0.00 10^3/uL (0.00-0.70); Eosinophils Percent Manual 0.0 % (0.9-7.0); Lymphocytes Absolute Manual 0.79 10^3/uL (1.20-3.80); Lymphocytes Percent Manual 4.0 % (20.5-60.0); Monocytes Absolute Manual 2.78 10^3/uL (0.30-0.80); Monocytes Percent Manual 14.0 % (1.7-12.0); Segmented Neut Absolute Manual 16.31 10^3/uL (1.4-6.5); Segmented Neutrophils % Manual 82.0 (43.0-75.0)
[2024-11-27] MEDS: ACETAMINOPHEN 1,000 MG/100 ML PREMIX 400 MG IV (21:17)
[2024-11-27] MEDS: CALCIUM GLUC IN NACL, ISO-OSM 1 GM/50 ML PLAST..BAG IV ×2 (21:39→22:08)
--- NOTE | 2024-11-27 21:51 | PC.NURSE ---
pt arrived with alexis cath in place. report rec'vd that Alexis cath was changed on 11/26/24 and this is when hematuria started. Alexis draining to gravity.
--- NOTE | 2024-11-27 22:59 | CT_ITS ---
The [address] [address] Patient Name: NITHYA VASQUEZ MRN: [id number] date: 1970 Sex: F Assigned Patient Location: ER Current Patient Location: ER Accession/Order Number: [id number] Exam Date: 11/27/2024 23:41 Report Date: 11/27/2024 23:54 At the request of: AJ RAMIREZ DO Procedure: CT head/brain wo con CT BRAIN WITHOUT CONTRAST: CLINICAL HISTORY: altered COMPARISON: 09/18/2024 TECHNIQUE: Contiguous axial unenhanced images were obtained through the brain. This CT exam was performed using one or more following dose reduction techniques: Automated exposure control, adjustment of the mA and/or kV according to patient size, or use of iterative reconstruction technique. FINDINGS: Postsurgical changes status post right temporal craniotomy. Right temporal lobe areas of encephalomalacia identified, possibly related related to recent surgery. Left frontal/anterior insular area of stroke appears similar. Mild background of chronic small vessel changes Subcortical hypoattenuation right posterior frontal noted, this could be due to increased conspicuity due to the result of a 6 edema or may be new in the interval, there is suggestion subtle cortical defect which may favor gliosis although underlying vasogenic edema could also be considered. Otherwise, no evidence of midline shift, intra or extra-axial fluid collection, hemorrhage or CT evidence of acute large vascular distribution stroke. Intracranial vascular calcifications. Visualized intraorbital contents appear unremarkable. Visualized paranasal sinuses are clear. The surrounding soft tissues are normal. CT/CT head/brain wo con IMPRESSION: INTERVAL POSTSURGICAL CHANGES STATUS POST RIGHT TEMPORAL CRANIOTOMY AND RESECTION OF THE MASS. FOCAL RIGHT POSTERIOR FRONTAL HYPOATTENUATION NOTED QUESTION DUE TO PRIOR STROKE. HOWEVER SMALL FOCUS OF VASOGENIC EDEMA COULD BE CONSIDERED MILD CHRONIC SMALL VESSEL ISCHEMIC DISEASE WITH EVIDENCE OF REMOTE AREAS OF LEFT ANTERIOR INSULAR/FRONTAL STROKE. Impression dictated by: Franklin Paniagua M.D. 11/27/2024 11:54 PM Dictation Location: [place] [address] Electronically authenticated by: [id number] Y Date: 11/27/2024 23:54
[2024-11-28] VITALS (136 sets, daily range): BP systolic 82–139; BP diastolic 31–103; PULSE 79–123; TEMP 37.2–38.9; O2SAT 65–100; BMI 51.9
[2024-11-28] MEDS: NOREPINEPHRINE BITARTRATE 4 MG in DEXTROSE 5 % IN WATER 250 ML 30.48 MG IV (00:02)
--- OUTSIDE RECORDS SUMMARY | 2024-11-28 05:11 | XMS_ITS | CCD ---
Author Organization [facility] Care Team Providers Care Test Equipment Mechanic Name Role Phone , August INSPECTOR SHELLS Unavailable Unavailable August INSPECTOR SHELLS Unavailable Unavailable August INSPECTOR SHELLS Unavailable Unavailable Jaleesa Lara Unavailable [facility] Primary Care Provider MD Liyah Rosa Attending Provider [phone] Valdez Acosta MD Primary Care Provider [phone] Liyah Rosa Unavailable Valdez Acosta MD Primary Care Provider [phone] Valdez Acosta MD Primary Care Provider [phone] AICHHOLZ, INSPECTOR SHELLS FRED Admitting Unavailable AICHHOLZ, INSPECTOR SHELLS FRED Attending Unavailable AICHHOLZ, INSPECTOR SHELLS FRED Primary Care Unavailable TAMLYN ., YAHAIRA Consulting Unavailable TAMLYN ., YAHAIRA Admitting Unavailable TAMLYN ., YAHAIRA Attending Unavailable AICHHOLZ, INSPECTOR SHELLS FRED Primary Care Unavailable TAMLYN ., YAHAIRA Consulting Unavailable THEA LYNN Consulting Unavailable YASH CALLAHAN Consulting Unavailable AICHHOLZ, INSPECTOR SHELLS FRED Admitting Unavailable AICHHOLZ, INSPECTOR SHELLS FRED Attending Unavailable AICHHOLZ, INSPECTOR SHELLS FRED Primary Care Unavailable AICHHOLZ, INSPECTOR SHELLS FRED Consulting Unavailable AICHHOLZ, INSPECTOR SHELLS FRED Admitting Unavailable AICHHOLZ, INSPECTOR SHELLS FRED Attending Unavailable AICHHOLZ, INSPECTOR SHELLS FRED Primary Care Unavailable AICHHOLZ, INSPECTOR SHELLS FRED Consulting Unavailable ML, DR ANTUNEZ Admitting Unavailable MISC, DR ANTUNEZ Attending Unavailable AICHHOLZ, INSPECTOR SHELLS FRED Primary Care Unavailable MISC, DR ANTUNEZ Consulting Unavailable Aichholz PRODUCT DEVELOPMENT, Fred Unavailable Maxim Lanza MD Primary Care [...] Physician Unavailab Keli Montanez Unavailable Unavailable Aichholz PRODUCT DEVELOPMENT, Fred Unavailable Myla BENITEZ, Maxim Primary Care Provider [phone] Sarah FIGUEROA, Sherrie Unavailable [phone] John CUSTOMER EXPERIENCE LEADER.RUBINA, Elizabeth Lantigua Unavailable SHERRIE BOONE Attending Unavailabl [...] Unavailable Yasmani BENITEZ, Tripp Carbone Attending Provider AICHHOLZ, FRED J Primary Care Unavailable KENROY PÉREZ Admitting Unavailable ONLY), IP WOUND C[facility] SERVICES (INPATIENT Consult ing Unavailable СЕРГЕЙ LYNCH Attending Unavailable MUNIRA HARO Attending Unavailable MUNIRA HARO Referring Unavailable AICHHOLZ, FRED J Primary Care Unavailable MUNIRA HARO Attending Unavailable MUNIRA HARO Referring Unavailable AICHHOLZ, FRED J Primary Care Unavailable Aichholz CUSTOMER EXPERIENCE LEADER-INSPECTOR SHELLS, Fred J Primary Care Provider PROVIDER, UNKNOWN Attending Unavailable PROVIDER, UNKNOWN Admitting Unavailable Aichholz CUSTOMER EXPERIENCE LEADER-INSPECTOR SHELLS, Fred J Primary Care Provider Aichholz CUSTOMER EXPERIENCE LEADER-INSPECTOR SHELLS, Fred J Primary Care Provider Alonzo Holguin MD Attending Provider [phone] AICJUDIE, FRED J Primary Care Unavailable MIRIAM [...] Unavailable AICHHOLZ, FRED J Primary Care Unavailable SAPHPIRE SANDOVALT Attending Unavailable ALY SANDOVALHANT Referring Unavailable AICHHOLZ, FRED J Primary Care Unavailable AICHHOLZ, FRED J Referring Unavailable AICHHOLZ, FRED J Primary Care Unavailable VEMPATI, RICHIE Referring Unavailable AICHHOLZ, FRED J Primary Care Unavailable Storm Chapman MD Attending Provider NON STAFF Primary Care Provider Unavailabl e [...] (1 source) -No Environmental Allergies Allergy to [facility] Work Phone: (2 sources) Acetaminophen / HYDROcodone; Translations: [Vicodin] Drug Allergy [facility] Repository (2 sources) Penicillins; Translations: [penicillins] Propensity to adverse reactions (disorder) [facility] Repository Medications Current Medications Medication Drug [...] hours as needed for shoulder surgical pain., [employer] #72, 167.7, cm, 02/05/24 11:09:00 EDT, Height/Length Dosing, 131.3, kg, 02/05/24 11:09:00 EDT, Weight Dosing Start Date: 02/06/24 Status: Ordered Start: 02-06-2024 End: 04-15-2024 Percocet 5 mg-325 mg oral ta blet See Instructions, 40 tab(s), Refill(s) 0, Take one to two oral every 4 hours as needed for shoulder surgical pain., [employer] #72, 167.7, cm, 02/05/24 11:09:00 EDT, [...] oral solution (1 source) alpha-Adrenergic Agonist, Uncompetitive K-rxjbik-X-aspartat e Receptor Antagonist, Sigma-1 Agonist Start: 04-15-2024 [...] therapy docusate sodium 50 mg / sennosides, [facility] 8.6 mg oral tablet (20 sources) Start: [...] 90 tablet 1 06/05/2023 Active Estrogens, Conjugated (SHELTER) / medroxyPROGESTERone (1 source) Progestin, Estrogen Start: [...] Active Start: 08-23-2024 End: 08-23-2025 nystatin (Mycostatin) 488748 UNIT/GM powder Indications: Yeast dermatitis Apply topically 2 (two) times a day 60 g 1 08/23/2024 08/23/2025 Active Start: 03-05-2024 End: 03-20-2024 nystatin (Mycostatin) 871606 UNIT/GM powder Indications: Candidiasis of skin Apply topically 2 (two) times a day for 15 days Apply to affected areas 60 g 1 03/05/2024 03/20/2024 Active End: 03-05-2024 nystatin (Mycostatin) 506427 UNIT/GM powder Apply topically 2 (two) times [...] mg 24 hr tablet polyethylene glycol 3350 74881 mg powder for oral solution (1 source) [...] Active Psyllium (1 source) Metamucil Active sennosides, [facility] 3 mg chewable tablet (1 source) Start: [...] mg per tablet Indications: GBM (glioblastoma multiforme) ([facility]) Take 1 tab daily, on Saturday and every week. 60 tablet 1 11/19/2024 11/19/2025 Active temozolomide 180 mg oral capsule (6 sources) Alkylating Drug Start: take 1 capsule by mouth once daily temozolomide (TEMODAR) 180 MG chemo capsule Indications: GBM (glioblastoma multiforme) ([facility]) Take 1 capsule by mouth [...] Start: 06-14-2018 End: 06-14-2018 TRAZODONE 50 mg [facility] 019 - 06/14/2018 Provider: Start: 05-30-2017 End: 05-30-2017 TRAZODONE 50 mg [facility] 018 - 05/30/2017 Provider: vitamin [...] Comment on above: Take 1,000 mcg by [facility] once daily. Vitamin D (2 sources) Start: [...] Start: 06-14-2018 End: 06-14-2018 CYCLOBENZAPRINE 10 MG [facility] 06/14/2018 - 06/14/2018 Provider: Start: 05-30-2017 End: 05-30-2017 CYCLOBENZAPRINE 10 MG MISC 0 05/30/2017 - 05/30/2017 Provider: Start: 06-30-2016 take 2 tablets by mo [facility] twice daily as needed for [...] signed up for this yet, please contact [employer] at [phone] to get signed up today. Language Information Language assistance services are available as needed. Normal [facility] Urology Office/Clinic Noteon 11-24-2024 Urology Office/Clinic [...] urine, unspecified) 10/09/24: Hx MS. Transferred from [facility] to [facility] on 09/18/24 d/t BRANDON, brain mass w shift and AMS. 1.5L retention upon admission w BRANDON (Dye Jig Operator 15.68) bilat hydro on US, improved to [...] that time. SINCE LAST OV: Admitted at [facility] 10/17-10/22 w Sepsis, NSTEMI, Heart Failure. Urine Cx showed Proteus. Alexis was dc'd on day of discharge (unclear why). Treated for another UTI 11/10 (Levaquin). Per heme/onc note (Guillermo Mendoza) pt starting chemo/radiation with palliative goals. Started pt on daily Bactrim #60. Seeing nephrology d/t acute on CKD. 11/07 Dye Jig Operator 3.05 TODAY: PVR 927ml. Pt does not have sensation of incomplete emptying. Comfortable. Voiding, mostly in brief. Advised we need to replace Alexis vs start CIC. Pt prefers indwelling Alexis. Order written for ECF to replace upon return to facility today and maintain w Q4wk changes. Ordered: [id number] Pain severity quantified; no pain present 36741 Measure Post Void residual urine and/or bladder [...] In 3 months [address] [place] [address] Additional Instructions: Patient Education Acute Urinary Retention, Female, [id number] Problem List/Past Medical History Ongoing Bipolar I [...] Smokeless Tobacco Use:. 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 Expected postsurgical distortion is noted, as [...] Grayson MD on 11/13/2024 11:34 AM Normal [facility] ALL BASIC METABOLIC PANELon 11-07-2024 Anion gap [Moles/Vol] 11.9 mmol/L [facility] Calcium [Mass/Vol] 8.5 mg/dL 8.5 - 10. 1 mg/dL [facility] Chloride [Moles/Vol] 108 mmol/L High 98 - 10 7 mmol/L [facility] CO2 [Moles/Vol] 32.8 mmol/L High 21.0 - 32.0 mmol/L [facility] Creatinine [Mass/Vol] 3.05 mg/dL High 0.55 - 1.02 mg/dL [facility] GFR/1.73 sq M.predicted CKD-EPI (S/P/Bld) [Vol rate/Area] 19 Low >=60 mL/min/1.7 3m 2 [facility] Glucose [Mass/Vol] 99 mg/dL 74 - 106 mg/dL [facility] Interpretation and review of laboratory results Abnormal [facility] Potassium [Moles/Vol] 3.7 mmol/L 3.5 - 5.1 mmol/L [facility] Sodium [Moles/Vol] 149 mmol/L High 136 - 145 mmol/L [facility] TBH EGFR-NON AF CITIZEN [place] 16 Low >=6 0 mL/min/1.7 3m 2 [facility] Urea nitrogen [Mass/Vol] 36 mg/dL High 7.0 - 18.0 mg/dL [facility] Urea nitrogen/Creatinine [Mass ratio] 11.8 mg/mg [facility]24 Bacteria identified Cx Nom (U) ORGANISM: Proteus mirabilis (O:PROMIR) [place] Count >100,000 Aerobic ROSE Charge ([id number]) ---- [...] RESISTANT TO ALL B-LACTAM DRUGS. PERFORMED BY: [place] [address] PATHOLOGIST UX DESIGNER ADILENE GAMINO M.D. Normal [facility] Comment on above: Performed By: #### C UU #### [address] Urine cultureOrdered By: Michelle Holguin on 10-17-2024 Bacteria identified Cx Nom (U) Proteus mirabilis Abnormal [facility] Ambulatory Visit Summaryon 0 10-09-2024 Ambulatory Visit [...] choosing us for your care. Normal [facility] BASIC METABOLIC PANELon 05- Anion gap [Moles/Vol] 11 mmol/L Normal 5-15 [facility] Comment on above: Performed By: #### P INR #### [facility] [address] [place] [address] VIR Calcium [Mass/Vol] 8.8 mg/dL Normal 8.5-10.5 [facility] Comment on above: Performed By: #### P INR #### [facility]) [address] [place] [address] VIR Chloride [Moles/Vol] 106 mmol/L Normal 98-109 [facility] Comment on above: Performed By: #### P INR #### [facility]) [address] [place] [address] VIR CO2 [Moles/Vol] 23 mmol/L Normal 22-32 [facility] Comment on above: Performed By: #### P INR #### [facility]) [address] [place] [address] VIR Creatinine [Mass/Vol] 0.74 mg/dL Normal 0.40-1.00 [facility] Comment on above: Result Comment: METH OD TRACEABLE TO IDMS STANDARD Performed By: #### P INR #### [facility]) [address] [place] [address] VIR EGFR (CKD-EPI) NON-RACE DEPENDENT >^90 Normal >=60 [facility] Comment on above: Result Comment: Repo rted eGFR is based on the CKD-EPI 2020 equation that does not use a race coefficient. Performed By: #### P INR #### [facility]) [address] [place] [address] VIR Glucose [Mass/Vol] 94 mg/dL Normal 65-99 [facility] Comment on above: Performed By: #### P INR #### [facility]) [address] [place] [address] VIR Potassium [Moles/Vol] 4.4 mmol/L Normal 3.5-5.0 [facility] Comment on above: Performed By: #### P INR #### [facility]) [address] [place] [address] VIR Sodium [Moles/Vol] 140 mmol/L Normal 134-146 [facility] Comment on above: Performed By: #### P INR #### [facility]) [address] [place] [address] VIR Urea nitrogen [Mass/Vol] 26 mg/dL High 5-23 [facility] Comment on above: Performed By: #### P INR #### [facility]) [address] [place] [address] VIR Basic Metabolic Panelon 05 Anion gap [Moles/Vol] 11 mmol/L 5 - 15 mmol/L [facility] Calcium [Mass/Vol] 8.8 mg/dL 8.5 - 10. 5 mg/dL [facility] Chloride [Moles/Vol] 106 mmol/L 98 - 10 9 mmol/L [facility] CO2 [Moles/Vol] 23 mmol/L 22 - 32 mmol/L [facility] Creatinine [Mass/Vol] 0.74 mg/dL 0.40 - 1.00 mg/dL [facility] EGFR Non-Race Dependent - PINF P [facility] Glucose [Mass/Vol] 94 mg/dL 65 - 99 mg/dL [facility] Interpretation and review of laboratory results Abnormal [facility] Potassium [Moles/Vol] 4.4 mmol/L 3.5 - 5.0 mmol/L [facility] Sodium [Moles/Vol] 140 mmol/L 134 - 146 mmol/L [facility] Urea nitrogen [Mass/Vol] 26 mg/dL High 5 - 23 mg/dL [facility] CBC WITH AUTO DIFFERENTIALon 09-28-2024 BASOPHILS ABSOLUTE COUNT (10*3/UL) BY AUTOMATED COUNT 0.0 10*3/uL Normal 0.0-0.2 [facility] Comment on above: Result Comment: This is an appended report. These results have been appended to a previously preliminary verified report. Performed By: #### P INR #### [facility]) [address] [place] [address] VIR BASOPHILS RELATIVE PERCENT BY AUTOMATED COUNT 0.1 % Normal [facility] Comment on above: Result Comment: This is an appended report. These results have been appended to a previously preliminary verified report. Performed By: #### P INR #### [facility]) [address] [place] [address] VIR CELLAVISION DIFFERENTIAL TYPE AUTOMATED DIFFERENTIAL Normal [facility] Comment on above: Result Comment: This is an appended report. These results have been appended to a previously preliminary verified report. Performed By: #### P INR #### [facility]) [address] [place] [address] VIR Eosinophils (Bld) [#/Vol] 0.0 10*3/uL Normal 0.0-0.4 [facility] Comment on above: Result Comment: This is an appended report. These results have been appended to a previously preliminary verified report. Performed By: #### P INR #### [facility]) [address] [place] [address] VIR EOSINOPHILS RELATIVE PERCENT BY AUTOMATED COUNT 0.1 % Normal [facility] Comment on above: Result Comment: This is an appended report. These results have been appended to a previously preliminary verified report. Performed By: #### P INR #### [facility]) [address] [place] [address] VIR Erythrocyte distribution width (RBC) [Ratio] 16.4 % High 11.5-15 [facility] Comment on above: Performed By: #### P INR #### [facility]) [address] [facility] [address] [place] [address] VIR Hematocrit (Bld) [Volume fraction] 35.5 % Normal 35-47 [facility] Comment on above: Performed By: #### P INR #### [facility]) [address] [address] VIR Hemoglobin (Bld) [Mass/Vol] 11.5 g/dL Low 11.7-15.5 [facility] Comment on above: Performed By: #### P INR #### [facility]) [address] [address] VIR LYMPHOCYTES ABSOLUTE COUNT (10*3/UL) BY AUTOMATED COUNT 1.3 10*3/uL Normal 1.0-3.5 [facility] Comment on above: Result Comment: This is an appended report. These results have been appended to a previously preliminary verified report. Performed By: #### P INR #### [facility]) [address] [address] VIR LYMPHOCYTES RELATIVE PERCENT BY AUTOMATED COUNT 8.3 % Normal [facility] Comment on above: Result Comment: This is an appended report. These results have been appended to a previously preliminary verified report. Performed By: #### P INR #### [facility]) [address] [address] VIR MCH (RBC) [Entitic mass] 27.0 pg Normal 27-34 [facility] Comment on above: Performed By: #### P INR #### [facility]) [address] [address] VIR MCHC (RBC) [Mass/Vol] 32.5 g/dL Normal 32-36 [facility] Comment on above: Performed By: #### P INR #### [facility]) [address] [place] [address] VIR MCV (RBC) [Entitic vol] 83 fL Normal 80-100 [facility] Comment on above: Performed By: #### P INR #### [facility]) [address] [place] [address] VIR MONOCYTES ABSOLUTE COUNT (10*3/UL) BY AUTOMATED COUNT 1.8 10*3/uL High 0.0-0.9 [facility] Comment on above: Result Comment: This is an appended report. These results have been appended to a previously preliminary verified report. Performed By: #### P INR #### [facility]) [address] [place] [address] VIR MONOCYTES RELATIVE PERCENT BY AUTOMATED COUNT 11.3 % Normal [facility] Comment on above: Result Comment: This is an appended report. These results have been appended to a previously preliminary verified report. Performed By: #### P INR #### [facility]) [address] [place] [address] VIR NEUTROPHILS ABSOLUTE COUNT BY AUTOMATED COUNT 12.4 10*3/uL High 1.5-6.6 [facility] Comment on above: Result Comment: This is an appended report. These results have been appended to a previously preliminary verified report. Performed By: #### P INR #### [facility]) [address] [place] [address] VIR NEUTROPHILS RELATIVE PERCENT BY AUTOMATED COUNT 80.2 % Normal [facility] Comment on above: Result Comment: This is an appended report. These results have been appended to a previously preliminary verified report. Performed By: #### P INR #### [facility]) [address] [place] [address] VIR Platelet mean volume (Bld) [Entitic vol] 10.7 fL Normal 7-12 [facility] Comment on above: Performed By: #### P INR #### [facility]) [address] [place] [address] VIR Platelets (Bld) [#/Vol] 115 10*3/uL Low 150-450 [facility] Comment on above: Performed By: #### P INR #### [facility]) [address] [place] [address] VIR RBC COUNT 4.27 X10E12/L Normal 3.8-5.2 [facility] Comment on above: Performed By: #### P INR #### [facility]) [address] [place] [address] VIR WBC (Bld) [#/Vol] 15.5 10*3/uL High 4-11 [facility] Comment on above: Performed By: #### P INR #### [facility]) [address] [place] [address] VIR CBC auto differentialon 09-17 Basophils (Bld) [#/Vol] 0 10*3/uL 0.0 - 0.2 10*3/uL [facility] Basophils/100 WBC (Bld) 0.1 % [facility] Differential cell count method Nom (Bld) AUTOMATED DIFFERENTIAL [facility] Eosinophils (Bld) [#/Vol] 0 10*3/uL 0.0 - 0.4 10*3/uL [facility] Eosinophils/100 WBC (Bld) 0.1 % [facility] Erythrocyte distribution width (RBC) [Ratio] 16.4 % High 11.5 - 15 % [facility] Hematocrit (Bld) [Volume fraction] 35.5 % 35 - 47 % [facility] Hemoglobin (Bld) [Mass/Vol] 11.5 g/dL Low 11.7 - 15.5 g/dL [facility] Interpretation and review of laboratory results Abnormal [facility] Lymphocytes (Bld) [#/Vol] 1.3 10*3/uL 1.0 - 3.5 10*3/uL [facility] Lymphocytes/100 WBC (Bld) 8.3 % [facility] MCH (RBC) [Entitic mass] 27 pg 27 - 34 pg [facility] MCHC (RBC) [Mass/Vol] 32.5 g/dL 32 - 3 6 g/dL [facility] MCV (RBC) [Entitic vol] 83 fL 80 - 100 fL [facility] Monocytes (Bld) [#/Vol] 1.8 10*3/uL High 0.0 - 0.9 10*3/uL [facility] Monocytes/100 WBC (Bld) 11.3 % [facility] Neutrophils (Bld) [#/Vol] 12.4 10*3/uL High 1.5 - 6.6 10*3/uL [facility] Neutrophils/100 WBC (Bld) 80.2 % [facility] Platelet mean volume (Bld) [Entitic vol] 10.7 fL 7 - 12 fL [facility] Platelets (Bld) [#/Vol] 115 10*3/uL Low [facility] RBC (Bld) [#/Vol] 4.27 10*6/uL [facility] WBC LM Ql (Sput) 15.5 High [facility] [place] SWALLOW MOTILITY FUNCTION on 09-28-2024 [...] Jayla Arroyo MD on 09/28/2024 3:08 PM [facility] IONIZED CALCIUMon 09-28-2024 IONIZED CALCIUM - ICAN 4.3 mg/dL Low 4.5-5.3 [facility] Comment on above: Performed By: #### P INR #### [facility]) [address] [place] [address] VIR Ionized calciumon 09-28-2024 Calcium.ionized ISE [Moles/Vol] 4.3 mg/dL Low 4.5 - 5.3 mg/dL [facility] Interpretation and review of laboratory results Abnormal [facility] MAGNESIUMon 09-28-2024 Magnesium [Mass/Vol] 1.8 mg/dL Normal 1.8-2.6 [facility] Comment on above: Performed By: #### P INR #### [facility]) [address] [place] [address] VIR Magnesiumon 09-28-2024 Magnesium [Mass/Vol] 1.8 mg/dL 1.8 - 2 .6 mg/dL [facility] No Panel Informationon 09-28 Interpretation and review of laboratory results Normal [facility] PHOSPHORUSon 09-28-2024 Phosphate [Mass/Vol] 2.6 mg/dL Normal 2.4-4.9 [facility] Comment on above: Performed By: #### P INR #### [facility]) [address] [place] [address] VIR Phosphoruson 09-28-2024 Phosphate [Mass/Vol] 2.6 mg/dL 2.4 - 4 .9 mg/dL [facility] RF videography Hypopharynx a nd Esophagus Viewson 09-28-2024 SECTRAPACS [facility] Radiology Study observation (narrative) [facility] RF videography Hypopharynx a nd Esophagus ViewsOrdered By: Jayla Arroyo on 09-28-2024 [facility] Work Phone: BASIC METABOLIC PANELon 09-17 Anion gap [Moles/Vol] 10 mmol/L Normal 5-15 [facility] Comment on above: Performed By: #### P INR #### [facility] [address] [place] [address] VIR Calcium [Mass/Vol] 9.0 mg/dL Normal 8.5-10.5 [facility] Comment on above: Performed By: #### P INR #### [facility] ([facility]) [address] [place] [address] VIR Chloride [Moles/Vol] 109 mmol/L Normal 98-109 [facility] Comment on above: Performed By: #### P INR #### [facility] ([facility]) [address] [place] [address] VIR CO2 [Moles/Vol] 25 mmol/L Normal 22-32 [facility] Comment on above: Performed By: #### P INR #### [facility] ([facility]) [address] [place] [address] VIR Creatinine [Mass/Vol] 0.74 mg/dL Normal 0.40-1.00 [facility] Comment on above: Result Comment: METH OD TRACEABLE TO IDMS STANDARD Performed By: #### P INR #### [facility] ([facility]) [address] [place] [address] VIR EGFR (CKD-EPI) NON-RACE DEPENDENT >^90 Normal >=60 [facility] Comment on above: Result Comment: Repo rted eGFR is based on the CKD-EPI 2020 equation that does not use a race coefficient. Performed By: #### P INR #### [facility] ([facility]) [address] [place] [address] VIR Glucose [Mass/Vol] 101 mg/dL High 65-99 [facility] Comment on above: Performed By: #### P INR #### [facility] ([facility]) [address] [place] [address] VIR Potassium [Moles/Vol] 4.6 mmol/L Normal 3.5-5.0 [facility] Comment on above: Performed By: #### P INR #### [facility] ([facility]) [address] [place] [address] VIR Sodium [Moles/Vol] 144 mmol/L Normal 134-146 [facility] Comment on above: Performed By: #### P INR #### [facility] ([facility]) [address] [place] [address] VIR Urea nitrogen [Mass/Vol] 27 mg/dL High 5-23 [facility] Comment on above: Performed By: #### P INR #### [facility] ([facility]) [address] [place] [address] VIR Basic Metabolic Panelon 09-17 Anion gap [Moles/Vol] 10 mmol/L 5 - 15 mmol/L [facility] Calcium [Mass/Vol] 9 mg/dL 8.5 - 10. 5 mg/dL [facility] Chloride [Moles/Vol] 109 mmol/L 98 - 10 9 mmol/L [facility] CO2 [Moles/Vol] 25 mmol/L 22 - 32 mmol/L [facility] Creatinine [Mass/Vol] 0.74 mg/dL 0.40 - 1.00 mg/dL [facility] EGFR Non-Race Dependent - PINF P [facility] Glucose [Mass/Vol] 101 mg/dL High 65 - 99 mg/dL [facility] Interpretation and review of laboratory results Abnormal [facility] Potassium [Moles/Vol] 4.6 mmol/L 3.5 - 5.0 mmol/L [facility] Sodium [Moles/Vol] 144 mmol/L 134 - 146 mmol/L [facility] Urea nitrogen [Mass/Vol] 27 mg/dL High 5 - 23 mg/dL [facility] CBC WITH AUTO DIFFERENTIALon 09-27-2024 CELLAVISION DIFFERENTIAL TYPE CELLAVISION DIFFERENTIAL Normal [facility] Comment on above: Result Comment: This is an appended report. These results have been appended to a previously preliminary verified report. Performed By: #### U LUDMILA #### [facility] ([facility]) [address] [place] [address] VIR CELLAVISION LYMPHOCYTES ABSOLUTE COUNT (10*3/UL) BY MANUAL COUNT 0.8 10*3/uL Low 1.0-3.5 [facility] Comment on above: Result Comment: This is an appended report. These results have been appended to a previously preliminary verified report. Performed By: #### U LUDMILA #### [facility] ([facility]) [address] [place] [address] VIR CELLAVISION LYMPHOCYTES RELATIVE PERCENT BY MANUAL COUNT 5 % Normal [facility] Comment on above: Result Comment: This is an appended report. These results have been appended to a previously preliminary verified report. Performed By: #### U LUDMILA #### [facility] ([facility]) [address] [place] [address] VIR CELLAVISION MONOCYTES ABSOLUTE COUNT (10*3/UL) IN BLOOD BY MANUAL COUNT 2.2 10*3/uL High 0.0-0.9 [facility] Comment on above: Result Comment: This is an appended report. These results have been appended to a previously preliminary verified report. Performed By: #### U LUDMILA #### [facility] ([facility]) [address] [place] [address] VIR CELLAVISION MONOCYTES RELATIVE PERCENT BY MANUAL COUNT 13 % Normal [facility] Comment on above: Result Comment: This is an appended report. These results have been appended to a previously preliminary verified report. Performed By: #### U LUDMILA #### [facility] ([facility]) [address] [place] [address] VIR CELLAVISION MYELOCYTE RELATIVE PERCENT BY MANUAL COUNT 1 % Normal [facility] Comment on above: Result Comment: This is an appended report. These results have been appended to a previously preliminary verified report. Performed By: #### U LUDMILA #### [facility] ([facility]) [address] [place] [address] VIR CELLAVISION NEUTROPHILS ABSOLUTE COUNT BY MANUAL COUNT 14.0 10*3/uL High 1.5-6.6 [facility] Comment on above: Result Comment: This is an appended report. These results have been appended to a previously preliminary verified report. Performed By: #### U LUDMILA #### [facility] ([facility]) [address] [place] [address] VIR CELLAVISION NEUTROPHILS RELATIVE PERCENT BY MANUAL COUNT 82 % Normal [facility] Comment on above: Result Comment: This is an appended report. These results have been appended to a previously preliminary verified report. Performed By: #### U LUDMILA #### [facility] ([facility]) [address] [place] [address] VIR Erythrocyte distribution width (RBC) [Ratio] 16.6 % High 11.5-15 [facility] Comment on above: Performed By: #### U LUDMILA #### [facility] ([facility]) [address] [place] [address] VIR Hematocrit (Bld) [Volume fraction] 34.3 % Low 35-47 [facility] Comment on above: Performed By: #### U LUDMILA #### [facility] ([facility]) [address] [place] [address] VIR Hemoglobin (Bld) [Mass/Vol] 11.3 g/dL Low 11.7-15.5 [facility] Comment on above: Performed By: #### U LUDMILA #### [facility] ([facility]) [address] [place] [address] VIR MCH (RBC) [Entitic mass] 27.3 pg Normal 27-34 [facility] Comment on above: Performed By: #### U LUDMILA #### [facility] ([facility]) [address] [place] [address] VIR MCHC (RBC) [Mass/Vol] 33.0 g/dL Normal 32-36 [facility] Comment on above: Performed By: #### U LUDMILA #### [facility] ([facility]) [address] [place] [address] VIR MCV (RBC) [Entitic vol] 83 fL Normal 80-100 [facility] Comment on above: Performed By: #### U LUDMILA #### [facility] ([facility]) [address] [place] [address] VIR Platelet mean volume (Bld) [Entitic vol] 11.6 fL Normal 7-12 [facility] Comment on above: Performed By: #### U LUDMILA #### [facility] ([facility]) [address] [place] [address] VIR Platelets (Bld) [#/Vol] 116 10*3/uL Low 150-450 [facility] Comment on above: Performed By: #### U LUDMILA #### [facility] ([facility]) [address] [place] [address] VIR RBC COUNT 4.14 X10E12/L Normal 3.8-5.2 [facility] Comment on above: Performed By: #### U LUDMILA #### [facility] ([facility]) [address] [place] [address] VIR WBC (Bld) [#/Vol] 17.1 10*3/uL High 4-11 [facility] Comment on above: Performed By: #### U LUDMILA #### [facility] ([facility]) [address] [place] [address] VIR CBC auto differentialon 09-17 Differential cell count method Nom (Bld) CELLAVISION DIFFERENTIAL [facility] Erythrocyte distribution width (RBC) [Ratio] 16.6 % High 11.5 - 15 % [facility] Hematocrit (Bld) [Volume fraction] 34.3 % Low 35 - 47 % [facility] Hemoglobin (Bld) [Mass/Vol] 11.3 g/dL [...] System Monocytes/100 WBC (Bld) 13 % P [facility] Myelocytes/100 WBC (Bld) 1 % [facility] Neutrophils (Bld) [#/Vol] 14 10*3/uL High 1.5 - 6.6 10*3/uL [facility] Neutrophils/100 WBC (Bld) 82 % [facility] Platelet mean volume (Bld) [Entitic vol] 11.6 fL 7 - 12 fL [facility] Platelets (Bld) [#/Vol] 116 10*3/uL Low [facility] RBC (Bld) [#/Vol] 4.14 10*6/uL [facility] Variant lymphocytes/100 WBC (Bld) 5 % [facility] WBC LM Ql (Sput) 17.1 High [facility] IONIZED CALCIUMon 09-27-2024 IONIZED CALCIUM - ICAN 4.8 mg/dL Normal 4.5-5.3 [facility] Comment on above: Performed By: #### U LUDMILA #### [facility] ([facility]) [address] [place] [address] VIR Ionized calciumon 09-27-2024 Calcium.ionized ISE [Moles/Vol] 4.8 mg/dL 4.5 - 5.3 mg/dL [facility] Interpretation and review of laboratory results Normal [facility] MAGNESIUMon 09-27-2024 Magnesium [Mass/Vol] 1.9 mg/dL Normal 1.8-2.6 [facility] Comment on above: Performed By: #### U LUDMILA #### [facility] ([facility]) [address] [place] [address] VIR Magnesiumon 09-27-2024 Magnesium [Mass/Vol] 1.9 mg/dL 1.8 - 2 .6 mg/dL [facility] No Panel Informationon 09-27 Interpretation and review of laboratory results Normal [facility] PHOSPHORUSon 09-27-2024 Phosphate [Mass/Vol] 2.8 mg/dL Normal 2.4-4.9 [facility] Comment on above: Performed By: #### U LUDMILA #### [facility] ([facility]) [address] [place] [address] VIR Phosphoruson 09-27-2024 Phosphate [Mass/Vol] 2.8 mg/dL 2.4 - 4 .9 mg/dL [facility] XR CHEST 1 VWon 09-27-2024 XR CHEST 1 VW XR CHEST 1 VW Single view chest History:evaluate for PNA Difficulty breathing, shortness of breath Comparison: 09/23/2024 Findings: Single portable view of the chest. Stable cardiomediastinal silhouette. No focal opacity, effusion or pneumothorax. Impression: No significant interval change or definitive acute process. Finalized by Eliazar Sterling MD on 09/27/2024 6:34 AM Normal [facility] XR Chest Single viewon 09-27 SECTRAPACS [facility] Radiology Study observation (narrative) [facility] XR Chest Single viewOrdered By: Eliazar Sterling on 09-27-2024 [facility] Work Phone: Bacteria identified Aer cx N om (Bld)Ordered By: Sheng Calderon on 09-26-2024 Bacteria identified Aer cx Nom (Unsp spec) NO GROWTH 5 DAYS [facility] BASIC METABOLIC PANELon Anion gap [Moles/Vol] 10 mmol/L Normal 5-15 [facility] Comment on above: Performed By: #### U LUDMILA #### [facility] ([facility]) [address] [place] [address] VIR Calcium [Mass/Vol] 8.6 mg/dL Normal 8.5-10.5 [facility] Comment on above: Performed By: #### U LUDMILA #### [facility] ([facility]) [address] [place] [address] VIR Chloride [Moles/Vol] 107 mmol/L Normal 98-109 [facility] Comment on above: Performed By: #### U LUDMILA #### [facility] ([facility]) [address] [place] [address] VIR CO2 [Moles/Vol] 24 mmol/L Normal 22-32 [facility] Comment on above: Performed By: #### U LUDMILA #### [facility] ([facility]) [address] [place] [address] VIR Creatinine [Mass/Vol] 0.80 mg/dL Normal 0.40-1.00 [facility] Comment on above: Result Comment: METH OD TRACEABLE TO IDMS STANDARD Performed By: #### U LUDMILA #### [facility] ([facility]) [address] [place] [address] VIR GFR/1.73 sq M.predicted among non-blacks MDRD (S/P/Bld) [Vol rate/Area] 86 mL/min/{1.73_m2} Normal >=60 [facility] Comment on above: Result Comment: Repo rted eGFR is based on the CKD-EPI 2020 equation that does not use a race coefficient. Performed By: #### U LUDMILA #### [facility] ([facility]) [address] [place] [address] VIR Glucose [Mass/Vol] 165 mg/dL High 65-99 [facility] Comment on above: Performed By: #### U LUDMILA #### [facility] ([facility]) [address] [place] [address] VIR Potassium [Moles/Vol] 4.0 mmol/L Normal 3.5-5.0 [facility] Comment on above: Performed By: #### U LUDMILA #### [facility] ([facility]) [address] [place] [address] VIR Sodium [Moles/Vol] 141 mmol/L Normal 134-146 [facility] Comment on above: Performed By: #### U LUDMILA #### [facility] ([facility]) [address] [place] [address] VIR Urea nitrogen [Mass/Vol] 24 mg/dL High 5-23 [facility] Comment on above: Performed By: #### U LUDMILA #### [facility] ([facility]) [address] [place] [address] VIR Basic Metabolic Panelon Anion gap [Moles/Vol] 10 mmol/L 5 - 15 mmol/L [facility] Calcium [Mass/Vol] 8.6 mg/dL 8.5 - 10. 5 mg/dL [facility] Chloride [Moles/Vol] 107 mmol/L 98 - 10 9 mmol/L [facility] CO2 [Moles/Vol] 24 mmol/L 22 - 32 mmol/L [facility] Creatinine [Mass/Vol] 0.8 mg/dL 0.40 - 1.00 mg/dL [facility] EGFR Non-Race Dependent 86 - PINF P [facility] Glucose [Mass/Vol] 165 mg/dL High 65 - 99 mg/dL [facility] Interpretation and review of laboratory results Abnormal [facility] Potassium [Moles/Vol] 4 mmol/L 3.5 - 5.0 mmol/L [facility] Sodium [Moles/Vol] 141 mmol/L 134 - 146 mmol/L [facility] Urea nitrogen [Mass/Vol] 24 mg/dL High 5 - 23 mg/dL [facility] CBC WITH AUTO DIFFERENTIALon 09-25-2024 CELLAVISION DIFFERENTIAL TYPE CELLAVISION DIFFERENTIAL Normal [facility] Comment on above: Result Comment: This is an appended report. These results have been appended to a previously preliminary verified report. Performed By: #### C PK #### [facility] ([facility]) [address] [place] [address] VIR CELLAVISION LYMPHOCYTES ABSOLUTE COUNT (10*3/UL) BY MANUAL COUNT 0.7 10*3/uL Low 1.0-3.5 [facility] Comment on above: Result Comment: This is an appended report. These results have been appended to a previously preliminary verified report. Performed By: #### C PK #### [facility] ([facility]) [address] [place] [address] VIR CELLAVISION LYMPHOCYTES RELATIVE PERCENT BY MANUAL COUNT 3 % Normal [facility] Comment on above: Result Comment: This is an appended report. These results have been appended to a previously preliminary verified report. Performed By: #### C PK #### [facility] ([facility]) [address] [place] [address] VIR CELLAVISION MONOCYTES ABSOLUTE COUNT (10*3/UL) IN BLOOD BY MANUAL COUNT 2.5 10*3/uL High 0.0-0.9 [facility] Comment on above: Result Comment: This is an appended report. These results have been appended to a previously preliminary verified report. Performed By: #### C PK #### [facility] ([facility]) [address] [place] [address] VIR CELLAVISION MONOCYTES RELATIVE PERCENT BY MANUAL COUNT 11 % Normal [facility] Comment on above: Result Comment: This is an appended report. These results have been appended to a previously preliminary verified report. Performed By: #### C PK #### [facility] ([facility]) [address] [place] [address] VIR CELLAVISION MYELOCYTE RELATIVE PERCENT BY MANUAL COUNT 1 % Normal [facility] Comment on above: Result Comment: This is an appended report. These results have been appended to a previously preliminary verified report. Performed By: #### C PK #### [facility] ([facility]) [address] [place] [address] VIR CELLAVISION NEUTROPHILS ABSOLUTE COUNT BY MANUAL COUNT 20.4 10*3/uL High 1.5-6.6 [facility] Comment on above: Result Comment: This is an appended report. These results have been appended to a previously preliminary verified report. Performed By: #### C PK #### [facility] ([facility]) [address] [place] [address] VIR CELLAVISION NEUTROPHILS RELATIVE PERCENT BY MANUAL COUNT 86 % Normal [facility] Comment on above: Result Comment: This is an appended report. These results have been appended to a previously preliminary verified report. Performed By: #### C PK #### [facility] ([facility]) [address] [place] [address] VIR CELLAVISION RBC MORPHOLOGY Normal Normal [facility] Comment on above: Result Comment: This is an appended report. These results have been appended to a previously preliminary verified report. Performed By: #### C PK #### [facility] ([facility]) [address] [place] [address] VIR CELLAVISION VACUOLATED NEUTROPHILS 1+ Normal [facility] Comment on above: Result Comment: This is an appended report. These results have been appended to a previously preliminary verified report. Performed By: #### C PK #### [facility] ([facility]) [address] [place] [address] VIR Erythrocyte distribution width (RBC) [Ratio] 15.8 % High 11.5-15 [facility] Comment on above: Performed By: #### C PK #### [facility] ([facility]) [address] [place] [address] VIR Hematocrit (Bld) [Volume fraction] 34.4 % Low 35-47 [facility] Comment on above: Performed By: #### C PK #### [facility] ([facility]) [address] [place] [address] VIR Hemoglobin (Bld) [Mass/Vol] 11.1 g/dL Low 11.7-15.5 [facility] Comment on above: Performed By: #### C PK #### [facility] ([facility]) [address] [place] [address] VIR MCH (RBC) [Entitic mass] 26.7 pg Low 27-34 [facility] Comment on above: Performed By: #### C PK #### [facility] ([facility]) [address] [place] [address] VIR MCHC (RBC) [Mass/Vol] 32.3 g/dL Normal 32-36 [facility] Comment on above: Performed By: #### C PK #### [facility] ([facility]) [address] [place] [address] VIR MCV (RBC) [Entitic vol] 83 fL Normal 80-100 [facility] Comment on above: Performed By: #### C PK #### [facility] ([facility]) [address] [place] [address] VIR Platelet mean volume (Bld) [Entitic vol] 10.5 fL Normal 7-12 [facility] Comment on above: Performed By: #### C PK #### [facility] ([facility]) [address] [place] [address] VIR Platelets (Bld) [#/Vol] 120 10*3/uL Low 150-450 [facility] Comment on above: Performed By: #### C PK #### [facility] ([facility]) [address] [place] [address] VIR RBC COUNT 4.16 X10E12/L Normal 3.8-5.2 [facility] Comment on above: Performed By: #### C PK #### [facility] ([facility]) [address] [place] [address] VIR WBC (Bld) [#/Vol] 23.8 10*3/uL High 4-11 [facility] Comment on above: Performed By: #### C PK #### [facility] ([facility]) [address] [place] [address] VIR CBC auto differentialon 05-0 Differential cell count method Nom (Bld) CELLAVISION DIFFERENTIAL [facility] Erythrocyte distribution width (RBC) [Ratio] 15.8 % High 11.5 - 15 % [facility] Hematocrit (Bld) [Volume fraction] 34.4 % Low 35 - 47 % [facility] Hemoglobin (Bld) [Mass/Vol] 11.1 g/dL Low 11.7 - 15.5 g/dL [facility] Interpretation and review of laboratory results Abnormal [facility] Lymphocytes (Bld) [#/Vol] 0.7 10*3/uL Low 1.0 - 3.5 10*3/uL [facility] MCH (RBC) [Entitic mass] 26.7 pg Low 27 - 34 pg [facility] MCHC (RBC) [Mass/Vol] 32.3 g/dL 32 - 3 6 g/dL [facility] MCV (RBC) [Entitic vol] 83 fL 80 - 100 fL [facility] Monocytes (Bld) [#/Vol] 2.5 10*3/uL High 0.0 - 0.9 10*3/uL [facility] Monocytes/100 WBC (Bld) 11 % [facility] Myelocytes/100 WBC (Bld) 1 % [facility] Neutrophils (Bld) [#/Vol] 20.4 10*3/uL High 1.5 - 6.6 10*3/uL [facility] Neutrophils.vacuolated LM Ql (Bld) 1+ [facility] Neutrophils/100 WBC (Bld) 86 % [facility] Platelet mean volume (Bld) [Entitic vol] 10.5 fL 7 - 12 fL [facility] Platelets (Bld) [#/Vol] 120 10*3/uL Low [facility] RBC (Bld) [#/Vol] 4.16 10*6/uL [facility] RBC (Bld) [#/Vol] Normal [facility] Variant lymphocytes/100 WBC (Bld) 3 % [facility] WBC LM Ql (Sput) 23.8 High [facility] IONIZED CALCIUMon 09-25-2024 IONIZED CALCIUM - ICAN 4.8 mg/dL Normal 4.5-5.3 [facility] Comment on above: Performed By: #### C PK #### [facility] ([facility]) [address] [place] [address] VIR IONIZED MAGNESIUMon 09-26-19 Magnesium [Moles/Vol] 0.56 mmol/L Normal 0.45-0.74 [facility] Comment on above: Performed By: #### U LUDMILA #### [facility] ([facility]) [address] [place] [address] VIR Ionized calciumon 09-25-2024 Calcium.ionized ISE [Moles/Vol] 4.8 mg/dL 4.5 - 5.3 mg/dL [facility] Interpretation and review of laboratory results Normal [facility] Ionized magnesiumon 09-26-19 25 Interpretation and review of laboratory results Normal [facility] Magnesium Ionized ISE (Bld) [Moles/Vol] 0.56 mmol/L 0.45 - 0.74 mmol/L [facility] [facility] MAGNESIUMon 09-25-2024 Magnesium [Mass/Vol] 1.8 mg/dL Normal 1.8-2.6 [facility] Comment on above: Performed By: #### U LUDMILA #### [facility] ([facility]) [address] [place] [address] VIR Magnesiumon 09-25-2024 Interpretation and review of laboratory results Normal [facility] Magnesium [Mass/Vol] 1.8 mg/dL 1.8 - 2 .6 mg/dL [facility] No Panel Informationon 09-25 [facility] PHOSPHORUSon 09-25-2024 Phosphate [Mass/Vol] 2.3 mg/dL Low 2.4-4.9 [facility] Comment on above: Performed By: #### U LUDMILA #### [facility] ([facility]) [address] [place] [address] VIR Phosphoruson 09-25-2024 Interpretation and review of laboratory results Abnormal [facility] Phosphate [Mass/Vol] 2.3 mg/dL Low 2.4 - 4 .9 mg/dL [facility] Bacteria identified Aer cx N om (Bld)on 09-24-2024 Bacteria identified Aer cx Nom (Unsp spec) NO GROWTH 5 DAYS [facility] CBC WITH AUTO DIFFERENTIALon 09-24-2024 BASOPHILS ABSOLUTE COUNT (10*3/UL) BY AUTOMATED COUNT 0.0 10*3/uL Normal [facility] Comment on above: Result Comment: This is an appended report. These results have been appended to a previously preliminary verified report. Performed By: #### C PK #### [facility] ([facility]) [address] [place] [address] VIR BASOPHILS RELATIVE PERCENT BY AUTOMATED COUNT 0.1 % Normal [facility] Comment on above: Result Comment: This is an appended report. These results have been appended to a previously preliminary verified report. Performed By: #### C PK #### [facility] ([facility]) [address] [place] [address] VIR CELLAVISION DIFFERENTIAL TYPE AUTOMATED DIFFERENTIAL Normal [facility] Comment on above: Result Comment: This is an appended report. These results have been appended to a previously preliminary verified report. Performed By: #### C PK #### [facility] ([facility]) [address] [place] [address] VIR Eosinophils (Bld) [#/Vol] 0.0 10*3/uL Normal [facility] Comment on above: Result Comment: This is an appended report. These results have been appended to a previously preliminary verified report. Performed By: #### C PK #### [facility] ([facility]) [address] [place] [address] VIR EOSINOPHILS RELATIVE PERCENT BY AUTOMATED COUNT 0.0 % Normal [facility] Comment on above: Result Comment: This is an appended report. These results have been appended to a previously preliminary verified report. Performed By: #### C PK #### [facility] ([facility]) [address] [place] [address] VIR Erythrocyte distribution width (RBC) [Ratio] 15.3 % High 11.5-15 [facility] Comment on above: Performed By: #### C PK #### [facility] ([facility]) [address] [facility] [address] [place] [address] VIR Hematocrit (Bld) [Volume fraction] 34.8 % Low 35-47 [facility] Comment on above: Performed By: #### C PK #### [facility] ([facility]) [address] [facility] [address] [place] [address] VIR Hemoglobin (Bld) [Mass/Vol] 11.2 g/dL Low 11.7-15.5 [facility] Comment on above: Performed By: #### C PK #### [facility] ([facility]) [address] [place] [address] VIR LYMPHOCYTES ABSOLUTE COUNT (10*3/UL) BY AUTOMATED COUNT 0.7 10*3/uL Normal [facility] Comment on above: Result Comment: This is an appended report. These results have been appended to a previously preliminary verified report. Performed By: #### C PK #### [facility] ([facility]) [address] [facility] [address] [place] [address] VIR LYMPHOCYTES RELATIVE PERCENT BY AUTOMATED COUNT 2.8 % Normal [facility] Comment on above: Result Comment: This is an appended report. These results have been appended to a previously preliminary verified report. Performed By: #### C PK #### [facility] ([facility]) [address] [place] [address] VIR MCH (RBC) [Entitic mass] 26.5 pg Low 27-34 [facility] Comment on above: Performed By: #### C PK #### [facility] ([facility]) [address] [place] [address] VIR MCHC (RBC) [Mass/Vol] 32.1 g/dL Normal 32-36 [facility] Comment on above: Performed By: #### C PK #### [facility] ([facility]) [address] [place] [address] VIR MCV (RBC) [Entitic vol] 82 fL Normal 80-100 [facility] Comment on above: Performed By: #### C PK #### [facility] ([facility]) [address] [facility] [address] [place] [address] VIR MONOCYTES ABSOLUTE COUNT (10*3/UL) BY AUTOMATED COUNT 2.8 10*3/uL Normal [facility] Comment on above: Result Comment: This is an appended report. These results have been appended to a previously preliminary verified report. Performed By: #### C PK #### [facility] ([facility]) [address] [place] [address] VIR MONOCYTES RELATIVE PERCENT BY AUTOMATED COUNT 10.4 % Normal [facility] Comment on above: Result Comment: This is an appended report. These results have been appended to a previously preliminary verified report. Performed By: #### C PK #### [facility] ([facility]) [address] [place] [address] VIR NEUTROPHILS ABSOLUTE COUNT BY AUTOMATED COUNT 22.9 10*3/uL Normal [facility] Comment on above: Result Comment: This is an appended report. These results have been appended to a previously preliminary verified report. Performed By: #### C PK #### [facility] ([facility]) [address] [place] [address] VIR NEUTROPHILS RELATIVE PERCENT BY AUTOMATED COUNT 86.7 % Normal [facility] Comment on above: Result Comment: This is an appended report. These results have been appended to a previously preliminary verified report. Performed By: #### C PK #### [facility] ([facility]) [address] [place] [address] VIR Platelet mean volume (Bld) [Entitic vol] 9.5 fL Normal 7-12 [facility] Comment on above: Performed By: #### C PK #### [facility] ([facility]) [address] [place] [address] VIR Platelets (Bld) [#/Vol] 155 10*3/uL Normal 150-450 [facility] Comment on above: Performed By: #### C PK #### [facility] ([facility]) [address] [facility] [address] [place] [address] VIR RBC COUNT 4.22 [id number]/L Normal 3.8-5.2 [facility] Comment on above: Performed By: #### C PK #### [facility] ([facility]) [address] [place] [address] VIR WBC (Bld) [#/Vol] 26.5 10*3/uL High 4-11 [facility] Comment on above: Performed By: #### C PK #### [facility] ([facility]) [address] [place] [address] VIR CBC auto differentialon 05-0 Basophils (Bld) [#/Vol] 0 10*3/uL [facility] Basophils/100 WBC (Bld) 0.1 % [facility] Differential cell count method Nom (Bld) AUTOMATED DIFFERENTIAL [facility] Eosinophils (Bld) [#/Vol] 0 10*3/uL [facility] Eosinophils/100 WBC (Bld) 0 % [facility] Erythrocyte distribution width (RBC) [Ratio] 15.3 % High 11.5 - 15 % [facility] Hematocrit (Bld) [Volume fraction] 34.8 % Low 35 - 47 % [facility] Hemoglobin (Bld) [Mass/Vol] 11.2 g/dL Low 11.7 - 15.5 g/dL [facility] Interpretation and review of laboratory results Abnormal [facility] Lymphocytes (Bld) [#/Vol] 0.7 10*3/uL [facility] Lymphocytes/100 WBC (Bld) 2.8 % [facility] MCH (RBC) [Entitic mass] 26.5 pg Low 27 - 34 pg [facility] MCHC (RBC) [Mass/Vol] 32.1 g/dL 32 - 3 6 g/dL [facility] MCV (RBC) [Entitic vol] 82 fL 80 - 100 fL [facility] Monocytes (Bld) [#/Vol] 2.8 10*3/uL [facility] Monocytes/100 WBC (Bld) 10.4 % [facility] Neutrophils (Bld) [#/Vol] 22.9 10*3/uL [facility] Neutrophils/100 WBC (Bld) 86.7 % [facility] Platelet mean volume (Bld) [Entitic vol] 9.5 fL 7 - 12 fL [facility] Platelets (Bld) [#/Vol] 155 10*3/uL [facility] RBC (Bld) [#/Vol] 4.22 10*6/uL [facility] WBC LM Ql (Sput) 26.5 High [facility] COMPREHENSIVE METABOLIC PANE Antoni 09-24-2024 Albumin [Mass/Vol] 3.3 g/dL Normal 3.2-5.3 [facility] Comment on above: Performed By: #### C PK #### [facility] ([facility]) [address] [place] [address] VIR ALP [Catalytic activity/Vol] 61 U/L Normal 39-130 [facility] Comment on above: Performed By: #### C PK #### [facility] ([facility]) [address] [place] [address] VIR ALT [Catalytic activity/Vol] 33 U/L High <=31 [facility] Comment on above: Performed By: #### C PK #### [facility] ([facility]) [address] [place] [address] VIR Anion gap [Moles/Vol] 10 mmol/L Normal 5-15 [facility] Comment on above: Performed By: #### C PK #### [facility] ([facility]) [address] [place] [address] VIR AST [Catalytic activity/Vol] 19 U/L Normal <=41 [facility] Comment on above: Performed By: #### C PK #### [facility] ([facility]) [address] [place] [address] VIR Bilirubin [Mass/Vol] 0.4 mg/dL Normal 0.3-1.2 [facility] Comment on above: Performed By: #### C PK #### [facility] ([facility]) [address] [place] [address] VIR Calcium [Mass/Vol] 8.7 mg/dL Normal 8.5-10.5 [facility] Comment on above: Performed By: #### C PK #### [facility] ([facility]) [address] [place] [address] VIR Chloride [Moles/Vol] 108 mmol/L Normal 98-109 [facility] Comment on above: Performed By: #### C PK #### [facility] ([facility]) [address] [place] [address] VIR CO2 [Moles/Vol] 23 mmol/L Normal 22-32 [facility] Comment on above: Performed By: #### C PK #### [facility] ([facility]) [address] [place] [address] VIR Creatinine [Mass/Vol] 1.06 mg/dL High 0.40-1.00 [facility] Comment on above: Result Comment: METH OD TRACEABLE TO IDMS STANDARD Performed By: #### C PK #### [facility] ([facility]) [address] [place] [address] VIR GFR/1.73 sq M.predicted among non-blacks MDRD (S/P/Bld) [Vol rate/Area] 62 mL/min/{1.73_m2} Normal >=60 [facility] Comment on above: Result Comment: Repo rted eGFR is based on the CKD-EPI 2020 equation that does not use a race coefficient. Performed By: #### C PK #### [facility] ([facility]) [address] [place] [address] VIR Glucose [Mass/Vol] 120 mg/dL High 65-99 [facility] Comment on above: Performed By: #### C PK #### [facility] ([facility]) [address] [place] [address] VIR Potassium [Moles/Vol] 4.3 mmol/L Normal 3.5-5.0 [facility] Comment on above: Performed By: #### C PK #### [facility] ([facility]) [address] [place] [address] VIR Protein [Mass/Vol] 6.3 g/dL Normal 6.0-8.0 [facility] Comment on above: Performed By: #### C PK #### [facility] ([facility]) [address] [place] [address] VIR Sodium [Moles/Vol] 141 mmol/L Normal 134-146 [facility] Comment on above: Performed By: #### C PK #### [facility] ([facility]) [address] [place] [address] VIR Urea nitrogen [Mass/Vol] 27 mg/dL High 5-23 [facility] Comment on above: Performed By: #### C PK #### [facility] ([facility]) [address] [place] [address] VIR CREATININE, SERUMon 09-25-19 25 CREATININE, SERUM SPACE [employer]ER CREATININE, SERU M Cancelled Normal [facility] Comment on above: Order Comment: Spoke to Regina Taylor RN. BMP since resulted making duplicate order, add-on is not necessary. Comprehensive metabolic pane lOrdered By: Paxtonhawa Navarro on 09-24-2024 Albumin [Mass/Vol] 3.3 g/dL 3.2 - 5.3 g/dL [facility] ALP [Catalytic activity/Vol] 61 U/L 39 - 130 U/L [facility] ALT No additional P-5'-P [Catalytic activity/Vol] 33 U/L High NINF - 31 U/L [facility] Anion gap [Moles/Vol] 10 mmol/L 5 - 15 mmol/L [facility] AST [Catalytic activity/Vol] 19 U/L NINF - 41 U/L [facility] Bilirubin [Mass/Vol] 0.4 mg/dL 0.3 - 1 .2 mg/dL [facility] Calcium [Mass/Vol] 8.7 mg/dL 8.5 - 10. 5 mg/dL [facility] Chloride [Moles/Vol] 108 mmol/L 98 - 10 9 mmol/L [facility] CO2 [Moles/Vol] 23 mmol/L 22 - 32 mmol/L [facility] Creatinine [Mass/Vol] 1.06 mg/dL High 0.40 - 1.00 mg/dL [facility] EGFR Non-Race Dependent 62 - PINF P [facility] Glucose [Mass/Vol] 120 mg/dL High 65 - 99 mg/dL [facility] Interpretation and review of laboratory results Abnormal [facility] Potassium [Moles/Vol] 4.3 mmol/L 3.5 - 5.0 mmol/L [facility] Protein [Mass/Vol] 6.3 g/dL 6.0 - 8.0 g/dL [facility] Sodium [Moles/Vol] 141 mmol/L 134 - 146 mmol/L [facility] Urea nitrogen [Mass/Vol] 27 mg/dL High 5 - 23 mg/dL [facility] [place] SWALLOW MOTILITY FUNCTION on 09-24-2024 FL [...] Christian MD on 09/24/2024 1:36 PM Normal [facility] IONIZED CALCIUMon 09-24-2024 IONIZED CALCIUM - ICAN 4.9 mg/dL Normal 4.5-5.3 [facility] Comment on above: Performed By: #### C PK #### [facility] ([facility]) [address] [place] [address] VIR Ionized calciumon 09-24-2024 Calcium.ionized ISE [Moles/Vol] 4.9 mg/dL 4.5 - 5.3 mg/dL [facility] Interpretation and review of laboratory results Normal [facility] MAGNESIUMon 09-24-2024 Magnesium [Mass/Vol] 2.3 mg/dL Normal 1.8-2.6 [facility] Comment on above: Performed By: #### C PK #### [facility] ([facility]) [address] [place] [address] VIR Magnesiumon 09-24-2024 Magnesium [Mass/Vol] 2.3 mg/dL 1.8 - 2 .6 mg/dL [facility] No Panel Informationon 09-24 Interpretation and review of laboratory results Normal [facility] PHOSPHORUSon 09-24-2024 Phosphate [Mass/Vol] 3.5 mg/dL Normal 2.4-4.9 [facility] Comment on above: Performed By: #### C PK #### [facility] ([facility]) [address] [place] [address] VIR Phosphoruson 09-24-2024 Phosphate [Mass/Vol] 3.5 mg/dL 2.4 - 4 .9 mg/dL [facility] RF videography Hypopharynx a nd Esophagus Viewson 09-24-2024 SECTRAPACS [facility] Radiology Study observation (narrative) [facility] RF videography Hypopharynx a nd Esophagus ViewsOrdered By: Remy Christian on 09-24-2024 [facility] Work Phone: ABO Rh Repeaton 09-23-2024 ABO O [facility] Rh Nom (Bld) Positive [facility] ABO O [facility] Rh Nom (Bld) Positive [facility] BASIC METABOLIC PANELon 05- Anion gap [Moles/Vol] 8 mmol/L Normal 5-15 [facility] Comment on above: Performed By: #### T [email or web address] #### [facility] ([facility]) [address] [place] [address] VIR Calcium [Mass/Vol] 9.0 mg/dL Normal 8.5-10.5 [facility] Comment on above: Performed By: #### T [email or web address] #### [facility] ([facility]) [address] [place] [address] VIR Chloride [Moles/Vol] 111 mmol/L High 98-109 [facility] Comment on above: Performed By: #### T [email or web address] #### [facility] ([facility]) [address] [place] [address] VIR CO2 [Moles/Vol] 24 mmol/L Normal 22-32 [facility] Comment on above: Performed By: #### T [email or web address] #### [facility] ([facility]) [address] [place] [address] VIR Creatinine [Mass/Vol] 0.91 mg/dL Normal 0.40-1.00 [facility] Comment on above: Result Comment: METH OD TRACEABLE TO IDMS STANDARD Performed By: #### T [email or web address] #### [facility] ([facility]) [address] [place] [address] VIR GFR/1.73 sq M.predicted among non-blacks MDRD (S/P/Bld) [Vol rate/Area] 74 mL/min/{1.73_m2} Normal >=60 [facility] Comment on above: Result Comment: Repo rted eGFR is based on the CKD-EPI 2020 equation that does not use a race coefficient. Performed By: #### T [email or web address] #### [facility] ([facility]) [address] [place] [address] VIR Glucose [Mass/Vol] 106 mg/dL High 65-99 [facility] Comment on above: Performed By: #### T [email or web address] #### [facility] ([facility]) [address] [place] [address] VIR Potassium [Moles/Vol] 4.4 mmol/L Normal 3.5-5.0 [facility] Comment on above: Performed By: #### T [email or web address] #### [facility] ([facility]) [address] [place] [address] VIR Sodium [Moles/Vol] 143 mmol/L Normal 134-146 [facility] Comment on above: Performed By: #### T [email or web address] #### [facility] ([facility]) [address] [place] [address] VIR Urea nitrogen [Mass/Vol] 25 mg/dL High 5-23 [facility] Comment on above: Performed By: #### T [email or web address] #### [facility] ([facility]) [address] [place] [address] VIR BEDSIDE GLUCOSEon 09-23-2024 Glucose [Mass/Vol] 153 mg/dL High 65-99 [facility] Comment on above: Performed By: #### T [email or web address] #### [facility] ([facility]) [address] [place] [address] VIR Basic Metabolic PanelOrdered By: Prema Beach on 09-23-2024 Anion gap [Moles/Vol] 8 mmol/L 5 - 15 mmol/L [facility] Calcium [Mass/Vol] 9 mg/dL 8.5 - 10. 5 mg/dL [facility] Chloride [Moles/Vol] 111 mmol/L High 98 - 10 9 mmol/L [facility] CO2 [Moles/Vol] 24 mmol/L 22 - 32 mmol/L [facility] Creatinine [Mass/Vol] 0.91 mg/dL 0.40 - 1.00 mg/dL [facility] EGFR Non-Race Dependent 74 - PINF P [facility] Glucose [Mass/Vol] 106 mg/dL High 65 - 99 mg/dL [facility] Interpretation and review of laboratory results Abnormal [facility] Potassium [Moles/Vol] 4.4 mmol/L 3.5 - 5.0 mmol/L [facility] Sodium [Moles/Vol] 143 mmol/L 134 - 146 mmol/L [facility] Urea nitrogen [Mass/Vol] 25 mg/dL High 5 - 23 mg/dL [facility] Bedside Glucose *Place/Obtai n serum glucose if >500 per glucometer.on 09-23-2024 Glucose [Mass/Vol] 153 mg/dL High 65 - 99 mg/dL [facility] Interpretation and review of laboratory results Abnormal [facility] CBC WITH AUTO DIFFERENTIALon 09-23-2024 BASOPHILS ABSOLUTE COUNT (10*3/UL) BY AUTOMATED COUNT 0.1 10*3/uL Normal [facility] Comment on above: Performed By: #### T [email or web address] #### [facility] ([facility]) [address] [place] [address] VIR BASOPHILS RELATIVE PERCENT BY AUTOMATED COUNT 0.4 % Normal [facility] Comment on above: Performed By: #### T [email or web address] #### [facility] ([facility]) [address] [place] [address] VIR CELLAVISION DIFFERENTIAL TYPE AUTOMATED DIFFERENTIAL Normal [facility] Comment on above: Performed By: #### T [email or web address] #### [facility] ([facility]) [address] [place] [address] VIR Eosinophils (Bld) [#/Vol] 0.0 10*3/uL Normal [facility] Comment on above: Performed By: #### T [email or web address] #### [facility] ([facility]) [address] [place] [address] VIR EOSINOPHILS RELATIVE PERCENT BY AUTOMATED COUNT 0.1 % Normal [facility] Comment on above: Performed By: #### T [email or web address] #### [facility] ([facility]) [address] [place] [address] VIR Erythrocyte distribution width (RBC) [Ratio] 15.5 % High 11.5-15 [facility] Comment on above: Performed By: #### T [email or web address] #### [facility] ([facility]) [address] [place] [address] VIR Hematocrit (Bld) [Volume fraction] 37.3 % Normal 35-47 [facility] Comment on above: Performed By: #### T [email or web address] #### [facility] ([facility]) [address] [place] [address] VIR Hemoglobin (Bld) [Mass/Vol] 12.3 g/dL Normal 11.7-15.5 [facility] Comment on above: Performed By: #### T [email or web address] #### [facility] ([facility]) [address] [place] [address] VIR LYMPHOCYTES ABSOLUTE COUNT (10*3/UL) BY AUTOMATED COUNT 1.1 10*3/uL Normal [facility] Comment on above: Performed By: #### T [email or web address] #### [facility] ([facility]) [address] [place] [address] VIR LYMPHOCYTES RELATIVE PERCENT BY AUTOMATED COUNT 7.0 % Normal [facility] Comment on above: Performed By: #### T [email or web address] #### [facility] ([facility]) [address] [facility] [place] [address] VIR MCH (RBC) [Entitic mass] 26.9 pg Low 27-34 [facility] Comment on above: Performed By: #### T [email or web address] #### [facility] ([facility]) [address] [facility] [place] [address] VIR MCHC (RBC) [Mass/Vol] 32.9 g/dL Normal 32-36 [facility] Comment on above: Performed By: #### T [email or web address] #### [facility] ([facility]) [address] [place] [address] VIR MCV (RBC) [Entitic vol] 82 fL Normal 80-100 [facility] Comment on above: Performed By: #### T [email or web address] #### [facility] ([facility]) [address] [place] [address] VIR MONOCYTES ABSOLUTE COUNT (10*3/UL) BY AUTOMATED COUNT 1.0 10*3/uL Normal [facility] Comment on above: Performed By: #### T [email or web address] #### [facility] ([facility]) [address] [place] [address] VIR MONOCYTES RELATIVE PERCENT BY AUTOMATED COUNT 6.9 % Normal [facility] Comment on above: Performed By: #### T [email or web address] #### [facility] ([facility]) [address] [place] [address] VIR NEUTROPHILS ABSOLUTE COUNT BY AUTOMATED COUNT 12.9 10*3/uL Normal [facility] Comment on above: Performed By: #### T [email or web address] #### [facility] ([facility]) [address] [facility] [place] [address] VIR NEUTROPHILS RELATIVE PERCENT BY AUTOMATED COUNT 85.6 % Normal [facility] Comment on above: Performed By: #### T [email or web address] #### [facility] ([facility]) [address] [place] [address] VIR Platelet mean volume (Bld) [Entitic vol] 9.5 fL Normal 7-12 [facility] Comment on above: Performed By: #### T [email or web address] #### [facility] ([facility]) [address] [place] [address] VIR Platelets (Bld) [#/Vol] 167 10*3/uL Normal 150-450 [facility] Comment on above: Performed By: #### T [email or web address] #### [facility] ([facility]) [address] [place] [address] VIR RBC COUNT 4.57 X10E12/L Normal 3.8-5.2 [facility] Comment on above: Performed By: #### T [email or web address] #### [facility] ([facility]) [address] [place] [address] VIR WBC (Bld) [#/Vol] 15.1 10*3/uL High 4-11 [facility] Comment on above: Performed By: #### T [email or web address] #### [facility] ([facility]) [address] [place] [address] VIR CBC auto differentialon 05-0 Basophils (Bld) [#/Vol] 0.1 10*3/uL [facility] Basophils/100 WBC (Bld) 0.4 % [facility] Differential cell count method Nom (Bld) AUTOMATED DIFFERENTIAL [facility] Eosinophils (Bld) [#/Vol] 0 10*3/uL [facility] Eosinophils/100 WBC (Bld) 0.1 % [facility] Erythrocyte distribution width (RBC) [Ratio] 15.5 % High 11.5 - 15 % [facility] Hematocrit (Bld) [Volume fraction] 37.3 % 35 - 47 % [facility] Hemoglobin (Bld) [Mass/Vol] 12.3 g/dL 11.7 - 15.5 g/dL [facility] Interpretation and review of laboratory results Abnormal [facility] Lymphocytes (Bld) [#/Vol] 1.1 10*3/uL [facility] Lymphocytes/100 WBC (Bld) 7 % [facility] MCH (RBC) [Entitic mass] 26.9 pg Low 27 - 34 pg [facility] MCHC (RBC) [Mass/Vol] 32.9 g/dL 32 - 3 6 g/dL [facility] MCV (RBC) [Entitic vol] 82 fL 80 - 100 fL [facility] Monocytes (Bld) [#/Vol] 1 10*3/uL [facility] Monocytes/100 WBC (Bld) 6.9 % [facility] Neutrophils (Bld) [#/Vol] 12.9 10*3/uL [facility] Neutrophils/100 WBC (Bld) 85.6 % [facility] Platelet mean volume (Bld) [Entitic vol] 9.5 fL 7 - 12 fL [facility] Platelets (Bld) [#/Vol] 167 10*3/uL [facility] RBC (Bld) [#/Vol] 4.57 10*6/uL [facility] WBC LM Ql (Sput) 15.[address] [facility] [address] BRAIN WO CONTon 5 CT [...] Hebert Farrar on 09/23/2024 7:38 PM Normal [facility] CT Head WO contraston 2024 SECTRAPACS [facility] Radiology Study observation (narrative) [facility] CT Head WO contrastOrdered B y: Hebert Farrar on 09-23-2024 [facility] [employer] Work Phone: Clinical Pathology ReviewOrd ered By: Jeremiah Altman on 09-23-2024 Case Report [facility] [employer] Work Phone: Pathology report final diagnosis Narrative b4jhcQZeDNPgdIRkGKEiK SsxpoQhGBJrsFLoF2Bjxd ljFMdaYK5kUD3wpBlqwAK qeTPzTYLkCwTkl7bcv099 dUUtb9msEVDLVPvrNQEHJ Mf5dJzuH62kw0T0DjftL5 4bsEHiBKZ7LIApACWhdRD vOTOaYXX7DJXskXTfS8yr VWAdKM0ycxxqYGwjFNaaJ BQjrDF0BMDumIHeE1RmPD DoXNxoEAHegxo5HgDlCz0 vdGVyeTcyMFxwYXJkXHBs YWluXGZzMjAgUHJvbWluZ S85IHMseuZhkU1uDzA4YJ SuVNxmd73vDULkX30mcCZ jGLHztY90nn4ojQhsqAen alOum5RwZoUixGbrhfQth lDkqIH3vH2kLficCXYqKW rqt2XcAnBolA9cpHnaBMf bzOwlqZ8bayYdl6UduS3g JGD0mGTedPibv3WevyXrL 5SchxLsCriyJPV8 [facility] Work Phone: [facility] Work Phone: ECG 12 leadon 09-23-2024 TRACEMASTERVUE [facility] IONIZED CALCIUMon 09-23-2024 IONIZED CALCIUM - ICAN 4.8 mg/dL Normal 4.5-5.3 [facility] Comment on above: Performed By: #### T [email or web address] #### [facility] ([facility]) [address] [place] [address] VIR Ionized calciumon 09-23-2024 Calcium.ionized ISE [Moles/Vol] 4.8 mg/dL 4.5 - 5.3 mg/dL [facility] Interpretation and review of laboratory results Normal [facility] MAGNESIUMon 09-23-2024 Magnesium [Mass/Vol] 1.8 mg/dL Normal 1.8-2.6 [facility] Comment on above: Performed By: #### T [email or web address] #### [facility] ([facility]) [address] [place] [address] VIR Magnesiumon 09-23-2024 Magnesium [Mass/Vol] 1.8 mg/dL 1.8 - 2 .6 mg/dL [facility] No Panel Informationon 09-23 Interpretation and review of laboratory results Normal [facility] PHOSPHORUSon 09-23-2024 Phosphate [Mass/Vol] 3.0 mg/dL Normal 2.4-4.9 [facility] Comment on above: Result Comment: R-Sp ecimen slightly hemolyzed, results increased Performed By: #### T [email or web address] #### [facility] ([facility]) [address] [place] [address] VIR Phosphoruson 09-23-2024 Phosphate [Mass/Vol] 3 mg/dL 2.4 - 4 .9 mg/dL [facility] Protein electrophoresis, ser umon 09-23-2024 Albumin [Mass/Vol] 2.8 g/dL Low 3.4 - 5.3 g/dL [facility] Alpha 1 globulin Elph [Mass/Vol] 0.6 g/dL High 0.1 - 0.4 g/dL [facility] Alpha 2 globulin Elph [Mass/Vol] 1.2 g/dL High 0.4 - 1.1 g/dL [facility] Beta globulin Elph [Mass/Vol] 1 g/dL 0.5 - 1.2 g/dL [facility] Gamma globulin Elph (Body fld) [Mass/Vol] 0.9 g/dL 0.5 - 1.6 g/dL [facility] Interpretation and review of laboratory results Abnormal [facility] Pathologist interpretation (Bld) [Interp] See Pathology Report [facility] Protein [Mass/Vol] 6.4 g/dL 6.0 - 8.0 g/dL [facility] REPEATED ABORHon 09-23-2024 ABO_INTEP O Normal [facility] Comment on above: Performed By: #### T [email or web address] #### [facility] ([facility]) [address] [place] [address] VIR RH_INTEP Positive Normal [facility] Comment on above: Performed By: #### T [email or web address] #### [facility] ([facility]) [address] [place] [address] VIR X-ray abdomen NG Tube placem ent 1 viewon 09-23-2024 [facility] Radiology Study observation (narrative) [facility] X-ray abdomen NG Tube placem ent 1 viewOrdered By: Sebastian Grayson on 09-23-2024 [facility] Work Phone: XR ABD NG [...] Grayson MD on 09/23/2024 5:22 PM Normal [facility] XR [facility] XR Chest Single viewOrdered By: Shen Farooq on 09-23-2024 [facility] Work Phone: BASIC METABOLIC PANELon 05-0 Anion gap [Moles/Vol] 11 mmol/L Normal 5-15 [facility] Comment on above: Performed By: #### C MP #### [facility] ([facility]) [address] [place] [address] VIR Calcium [Mass/Vol] 9.0 mg/dL Normal 8.5-10.5 [facility] Comment on above: Performed By: #### C MP #### [facility] ([facility]) [address] [place] [address] VIR Chloride [Moles/Vol] 110 mmol/L High 98-109 [facility] Comment on above: Performed By: #### C MP #### [facility] ([facility]) [address] [place] [address] VIR CO2 [Moles/Vol] 23 mmol/L Normal 22-32 [facility] Comment on above: Performed By: #### C MP #### [facility] ([facility]) [address] [place] [address] VIR Creatinine [Mass/Vol] 1.01 mg/dL High 0.40-1.00 [facility] Comment on above: Result Comment: METH OD TRACEABLE TO IDMS STANDARD Performed By: #### C MP #### [facility] ([facility]) [address] [place] [address] VIR GFR/1.73 sq M.predicted among non-blacks MDRD (S/P/Bld) [Vol rate/Area] 65 mL/min/{1.73_m2} Normal >=60 [facility] Comment on above: Result Comment: Repo rted eGFR is based on the CKD-EPI 2020 equation that does not use a race coefficient. Performed By: #### C MP #### [facility] ([facility]) [address] [place] [address] VIR Glucose [Mass/Vol] 129 mg/dL High 65-99 [facility] Comment on above: Performed By: #### C MP #### [facility] ([facility]) [address] [place] [address] VIR Potassium [Moles/Vol] 4.4 mmol/L Normal 3.5-5.0 [facility] Comment on above: Performed By: #### C MP #### [facility] ([facility]) [address] [place] [address] VIR Sodium [Moles/Vol] 144 mmol/L Normal 134-146 [facility] Comment on above: Performed By: #### C MP #### [facility] ([facility]) [address] [place] [address] VIR Urea nitrogen [Mass/Vol] 24 mg/dL High 5-23 [facility] Comment on above: Performed By: #### C MP #### [facility] ([facility]) [address] [place] [address] VIR Basic Metabolic PanelOrdered By: Rosenda Hernández on 09-22-2024 Anion gap [Moles/Vol] 11 mmol/L 5 - 15 mmol/L [facility] Calcium [Mass/Vol] 9 mg/dL 8.5 - 10. 5 mg/dL [facility] Chloride [Moles/Vol] 110 mmol/L High 98 - 10 9 mmol/L [facility] CO2 [Moles/Vol] 23 mmol/L 22 - 32 mmol/L [facility] Creatinine [Mass/Vol] 1.01 mg/dL High 0.40 - 1.00 mg/dL [facility] EGFR Non-Race Dependent 65 - PINF [facility] Glucose [Mass/Vol] 129 mg/dL High 65 - 99 mg/dL [facility] Interpretation and review of laboratory results Abnormal [facility] Potassium [Moles/Vol] 4.4 mmol/L 3.5 - 5.0 mmol/L [facility] Sodium [Moles/Vol] 144 mmol/L 134 - 146 mmol/L [facility] Urea nitrogen [Mass/Vol] 24 mg/dL High 5 - 23 mg/dL [facility] CBC WITH AUTO DIFFERENTIALon 09-22-2024 BASOPHILS ABSOLUTE COUNT (10*3/UL) BY AUTOMATED COUNT 0.0 10*3/uL Normal [facility] Comment on above: Performed By: #### C MP #### [facility] ([facility]) [address] [place] [address] VIR BASOPHILS RELATIVE PERCENT BY AUTOMATED COUNT 0.3 % Normal [facility] Comment on above: Performed By: #### C MP #### [facility] ([facility]) [address] [place] [address] VIR CELLAVISION DIFFERENTIAL TYPE AUTOMATED DIFFERENTIAL Normal [facility] Comment on above: Performed By: #### C MP #### [facility] ([facility]) [address] [place] [address] VIR Eosinophils (Bld) [#/Vol] 0.0 10*3/uL Normal [facility] Comment on above: Performed By: #### C MP #### [facility] ([facility]) [address] [place] [address] VIR EOSINOPHILS RELATIVE PERCENT BY AUTOMATED COUNT 0.0 % Normal [facility] Comment on above: Performed By: #### C MP #### [facility] ([facility]) [address] [place] [address] VIR Erythrocyte distribution width (RBC) [Ratio] 15.5 % High 11.5-15 [facility] Comment on above: Performed By: #### C MP #### [facility] ([facility]) [address] [place] [address] VIR Hematocrit (Bld) [Volume fraction] 38.0 % Normal 35-47 [facility] Comment on above: Performed By: #### C MP #### [facility] ([facility]) [address] [place] [address] VIR Hemoglobin (Bld) [Mass/Vol] 12.3 g/dL Normal 11.7-15.5 [facility] Comment on above: Performed By: #### C MP #### [facility] ([facility]) [address] [place] [address] VIR LYMPHOCYTES ABSOLUTE COUNT (10*3/UL) BY AUTOMATED COUNT 0.9 10*3/uL Normal [facility] Comment on above: Performed By: #### C MP #### [facility] ([facility]) [address] [place] [address] VIR LYMPHOCYTES RELATIVE PERCENT BY AUTOMATED COUNT 6.4 % Normal [facility] Comment on above: Performed By: #### C MP #### [facility] ([facility]) [address] [place] [address] VIR MCH (RBC) [Entitic mass] 27.0 pg Normal 27-34 [facility] Comment on above: Performed By: #### C MP #### [facility] ([facility]) [address] [place] [address] VIR MCHC (RBC) [Mass/Vol] 32.5 g/dL Normal 32-36 [facility] Comment on above: Performed By: #### C MP #### [facility] ([facility]) [address] [place] [address] VIR MCV (RBC) [Entitic vol] 83 fL Normal 80-100 [facility] Comment on above: Performed By: #### C MP #### [facility] ([facility]) [address] [place] [address] VIR MONOCYTES ABSOLUTE COUNT (10*3/UL) BY AUTOMATED COUNT 0.8 10*3/uL Normal [facility] Comment on above: Performed By: #### C MP #### [facility] ([facility]) [address] [place] [address] VIR MONOCYTES RELATIVE PERCENT BY AUTOMATED COUNT 6.0 % Normal [facility] Comment on above: Performed By: #### C MP #### [facility] ([facility]) [address] [place] [address] VIR NEUTROPHILS ABSOLUTE COUNT BY AUTOMATED COUNT 11.9 10*3/uL Normal [facility] Comment on above: Performed By: #### C MP #### [facility] ([facility]) [address] [place] [address] VIR NEUTROPHILS RELATIVE PERCENT BY AUTOMATED COUNT 87.3 % Normal [facility] Comment on above: Performed By: #### C MP #### [facility] ([facility]) [address] [place] [address] VIR Platelet mean volume (Bld) [Entitic vol] 9.6 fL Normal 7-12 [facility] Comment on above: Performed By: #### C MP #### [facility] ([facility]) [address] [place] [address] VIR Platelets (Bld) [#/Vol] 167 10*3/uL Normal 150-450 [facility] Comment on above: Performed By: #### C MP #### [facility] ([facility]) [address] [place] [address] VIR RBC COUNT 4.57 X10E12/L Normal 3.8-5.2 [facility] Comment on above: Performed By: #### C MP #### [facility] ([facility]) [address] [place] [address] VIR WBC (Bld) [#/Vol] 13.7 10*3/uL High 4-11 [facility] Comment on above: Performed By: #### C MP #### [facility] ([facility]) [address] [place] [address] VIR CBC auto differentialon 05-0 Basophils (Bld) [#/Vol] 0 10*3/uL [facility] Basophils/100 WBC (Bld) 0.3 % [facility] Differential cell count method Nom (Bld) AUTOMATED DIFFERENTIAL [facility] Eosinophils (Bld) [#/Vol] 0 10*3/uL [facility] Eosinophils/100 WBC (Bld) 0 % [facility] Erythrocyte distribution width (RBC) [Ratio] 15.5 % High 11.5 - 15 % [facility] Hematocrit (Bld) [Volume fraction] 38 % 35 - 47 % [facility] Hemoglobin (Bld) [Mass/Vol] 12.3 g/dL 11.7 - 15.5 g/dL [facility] Interpretation and review of laboratory results Abnormal [facility] Lymphocytes (Bld) [#/Vol] 0.9 10*3/uL [facility] Lymphocytes/100 WBC (Bld) 6.4 % [facility] MCH (RBC) [Entitic mass] 27 pg 27 - 34 pg [facility] MCHC (RBC) [Mass/Vol] 32.5 g/dL 32 - 3 6 g/dL [facility] MCV (RBC) [Entitic vol] 83 fL 80 - 100 fL [facility] Monocytes (Bld) [#/Vol] 0.8 10*3/uL [facility] Monocytes/100 WBC (Bld) 6 % [facility] Neutrophils (Bld) [#/Vol] 11.9 10*3/uL [facility] Neutrophils/100 WBC (Bld) 87.3 % [facility] Platelet mean volume (Bld) [Entitic vol] 9.6 fL 7 - 12 fL [facility] Platelets (Bld) [#/Vol] 167 10*3/uL [facility] RBC (Bld) [#/Vol] 4.57 10*6/uL [facility] WBC LM Ql (Sput) 13.7 High [facility] Cardiac echo study Procedure Ordered By: Nava Gamez on 09-22-2024 Aortic root 3 cm [facility] Work Phone: Aortic valve Mean systole pressure gradient by US.doppler derived full Bernoulli 4 mmHg [employer] Work Phone: Aortic valve Orifice area by US 3.39 [employer] Work Phone: Aortic valve Peak systolic flow by US.doppler 132 cm/s [employer] Work Phone: AV peak gradient 6.97 mmHg [employer] Work Phone: AV Velocity Ratio 0.98 [employer] Work Phone: AV VTI 28.3 cm [employer] Work Phone: E wave deceleration time 369 msec [employer] Work Phone: E/A ratio 0.5 [employer] Work Phone: Energy loss index 16.04 [employer] Work Phone: FS 46 % 28 - 44 % [employer] Work Phone: Interventricular Septum Diastolic Thickness by 2D 10 cm [employer] Work Phone: IVS 1 cm 0.6 - 1.1 cm [employer] Work Phone: LA size 3.2 cm [employer] Work Phone: LA volume 66.4 cm3 [employer] Work Phone: LA Volume Index 28.1 mL/m2 [employer] Work Phone: Left Ventricle Mass [id number] g [employer] Work Phone: LV ESV A2C 53.2 mL [employer] Work Phone: LV ESV A4C 78.5 mL [employer] Work Phone: LV RWT 2D 56.41 [employer] Work Phone: LVIDd 3.9 cm 7.16 - 9.95 cm [employer] Work Phone: LVIDs 2.1 cm 4.15 - 6.28 cm [employer] Work Phone: LVOT diameter 2.1 cm [employer] Work Phone: LVOT peak dayday 1.35 m/s [facility] Work Phone: LVOT peak VTI 27.7 cm [facility] Work Phone: LVOT stroke volume 95.94 ml [facility] Work Phone: Mitral Valve Max Velocity 2.24 cm/s [facility] Work Phone: MV mean gradient 10 mmHg [employer] Work Phone: MV Peak A Dayday 172 cm/s [facility] Work Phone: MV Peak E Dayday 86.8 cm/s [facility] Work Phone: MV peak gradient 20.07 mmHg [employer] Work Phone: MV pressure 1/2 time 108 ms [facility] Work Phone: MV TDI E' (medial) 3.92 cm/s [facility] Work Phone: MV valve area by continuity eq 1.35 [facility] Work Phone: MV valve area p 1/2 method 2.04 cm2 [employer] Work Phone: MV VTI 71 cm [employer] Work Phone: PV peak gradient 3.41 mmHg [employer] Work Phone: PW 1.1 cm 0.6 - 1.1 cm [employer] Work Phone: RV diastolic dimension (basal) 38 mm [employer] Work Phone: TAPSE 2.39 cm [employer] Work Phone: TDI 3.81 cm/s [facility] Work Phone: Valve area - Index 1.4 [facility] Work Phone: ZLVIDD -7.72 [facility] [employer] Work Phone: ZLVIDS -7.02 [facility] [employer] Work Phone: [facility] [employer] Work Phone: Cardiac echo study Procedure on 09-22-2024 [employer] Radiology Study observation (narrative) [facility] ELECTROLYTE PANELon 09-23-19 25 Anion gap [Moles/Vol] 11 mmol/L Normal 5-15 [facility] Comment on above: Performed By: #### C MP #### [facility] ([facility]) [address] [place] [address] VIR Chloride [Moles/Vol] 109 mmol/L Normal 98-109 [facility] Comment on above: Performed By: #### C MP #### [facility] ([facility]) [address] [place] [address] VIR CO2 [Moles/Vol] 22 mmol/L Normal 22-32 [facility] Comment on above: Performed By: #### C MP #### [facility] ([facility]) [address] [place] [address] VIR Potassium [Moles/Vol] 4.5 mmol/L Normal 3.5-5.0 [facility] Comment on above: Performed By: #### C MP #### [facility] ([facility]) [address] [place] [address] VIR Sodium [Moles/Vol] 142 mmol/L Normal 134-146 [facility] Comment on above: Performed By: #### C MP #### [facility] ([facility]) [address] [place] [address] VIR Anion gap [Moles/Vol] 10 mmol/L Normal 5-15 [facility] Comment on above: Performed By: #### C MP #### [facility] ([facility]) [address] [place] [address] VIR Chloride [Moles/Vol] 110 mmol/L High 98-109 [facility] Comment on above: Performed By: #### C MP #### [facility] ([facility]) [address] [place] [address] VIR CO2 [Moles/Vol] 23 mmol/L Normal 22-32 [facility] Comment on above: Performed By: #### C MP #### [facility] ([facility]) [address] [place] [address] VIR Potassium [Moles/Vol] 4.1 mmol/L Normal 3.5-5.0 [facility] Comment on above: Performed By: #### C MP #### [facility] ([facility]) [address] [place] [address] VIR Sodium [Moles/Vol] 143 mmol/L Normal 134-146 [facility] Comment on above: Performed By: #### C MP #### [facility] ([facility]) [address] [place] [address] VIR Electrolyte panelOrdered By: Leif Bazan on 09-22-2024 Anion gap [Moles/Vol] 11 mmol/L 5 - 15 mmol/L [facility] Chloride [Moles/Vol] 109 mmol/L 98 - 10 9 mmol/L [facility] CO2 [Moles/Vol] 22 mmol/L 22 - 32 mmol/L [facility] Interpretation and review of laboratory results Normal [facility] Potassium [Moles/Vol] 4.5 mmol/L 3.5 - 5.0 mmol/L [facility] Sodium [Moles/Vol] 142 mmol/L 134 - 146 mmol/L [facility] Electrolyte panelOrdered By: Mao Toro on 09-22-2024 Anion gap [Moles/Vol] 10 mmol/L 5 - 15 mmol/L [facility] Chloride [Moles/Vol] 110 mmol/L High 98 - 10 9 mmol/L [facility] CO2 [Moles/Vol] 23 mmol/L 22 - 32 mmol/L [facility] Interpretation and review of laboratory results Abnormal [facility] Potassium [Moles/Vol] 4.1 mmol/L 3.5 - 5.0 mmol/L [facility] Sodium [Moles/Vol] 143 mmol/L 134 - 146 mmol/L [facility] IONIZED CALCIUMon 09-22-2024 IONIZED CALCIUM - ICAN 4.6 mg/dL Normal 4.5-5.3 [facility] Comment on above: Performed By: #### C MP #### [facility] ([facility]) [address] [place] [address] VIR Ionized calciumOrdered By: Gladis Vásquez on 09-22-2024 Calcium.ionized ISE [Moles/Vol] 4.6 mg/dL 4.5 - 5.3 mg/dL [facility] Interpretation and review of laboratory results Normal [facility] MAGNESIUMon 09-22-2024 Magnesium [Mass/Vol] 1.9 mg/dL Normal 1.8-2.6 [facility] Comment on above: Performed By: #### C MP #### [facility] ([facility]) [address] [place] [address] VIR Magnesiumon 09-22-2024 Magnesium [Mass/Vol] 1.9 mg/dL 1.8 - 2 .6 mg/dL [facility] No Panel Informationon 09-22 Interpretation and review of laboratory results Normal [facility] PHOSPHORUSon 09-22-2024 Phosphate [Mass/Vol] 3.3 mg/dL Normal 2.4-4.9 [facility] Comment on above: Performed By: #### C MP #### [facility] ([facility]) [address] [place] [address] VIR Phosphoruson 09-22-2024 Phosphate [Mass/Vol] 3.3 mg/dL 2.4 - 4 .9 mg/dL [facility] TYPE AND SCREENon 09-22-2024 ABO_INTEP O Normal [facility] Comment on above: Performed By: #### T [email or web address] #### [facility] ([facility]) [address] [place] [address] VIR RH_INTEP Positive Normal [facility] Comment on above: Performed By: #### T NIHS1 #### [facility] ([facility]) [address] [facility] [place] [address] VIR Type and screen(includes ind irect sinan)on 09-22-2024 ABO O [facility] Rh Nom (Bld) Positive [facility] VANCOMYCIN, RANDOMon 025 VANCOMYCIN 16.5 ug/mL Normal 5.0-40.0 [facility] Comment on above: Order Comment: Peak 30-40 ug/mLTrough 5-20 ug/ml Performed By: #### C MP #### [facility] ([facility]) [address] [place] [address] VIR Vancomycin, randomon 025 Vancomycin [Susc] 16.5 ug/mL 5.0 - 40.0 ug/mL [facility] MAGI Screen w/ Reflexon 09-21 Interpretation and review of laboratory results Normal [facility] Nuclear Ab IA Ql (S) Negative Negative [facility] BASIC METABOLIC PANELon Anion gap [Moles/Vol] 10 mmol/L Normal 5-15 [facility] Comment on above: Performed By: #### L ACTS #### [facility] ([facility]) [address] [place] [address] VIR Calcium [Mass/Vol] 9.2 mg/dL Normal 8.5-10.5 [facility] Comment on above: Performed By: #### L ACTS #### [facility] ([facility]) [address] [place] [address] VIR Chloride [Moles/Vol] 114 mmol/L High 98-109 [facility] Comment on above: Performed By: #### L ACTS #### [facility] ([facility]) [address] [place] [address] VIR CO2 [Moles/Vol] 24 mmol/L Normal 22-32 [facility] Comment on above: Performed By: #### L ACTS #### [facility] ([facility]) [address] [place] [address] VIR Creatinine [Mass/Vol] 1.27 mg/dL High 0.40-1.00 [facility] Comment on above: Result Comment: METH OD TRACEABLE TO IDMS STANDARD Performed By: #### L ACTS #### [facility] ([facility]) [address] [place] [address] VIR GFR/1.73 sq M.predicted among non-blacks MDRD (S/P/Bld) [Vol rate/Area] 50 mL/min/{1.73_m2} Low >=60 [facility] Comment on above: Result Comment: Repo rted eGFR is based on the CKD-EPI 2020 equation that does not use a race coefficient. Performed By: #### L ACTS #### [facility] ([facility]) [address] [place] [address] VIR Glucose [Mass/Vol] 127 mg/dL High 65-99 [facility] Comment on above: Performed By: #### L ACTS #### [facility] ([facility]) [address] [place] [address] VIR Potassium [Moles/Vol] 3.9 mmol/L Normal 3.5-5.0 [facility] Comment on above: Performed By: #### L ACTS #### [facility] ([facility]) [address] [place] [address] VIR Sodium [Moles/Vol] 148 mmol/L High 134-146 [facility] Comment on above: Performed By: #### L ACTS #### [facility] ([facility]) [address] [place] [address] VIR Urea nitrogen [Mass/Vol] 24 mg/dL High 5-23 [facility] Comment on above: Performed By: #### L ACTS #### [facility] ([facility]) [address] [place] [address] VIR Bacteria identified Aer cx N om (Bld)Ordered By: Maicol Mg on 09-21-2024 Bacteria identified Aer cx Nom (Unsp spec) Negative Abnormal [facility] Interpretation and review of laboratory results Abnormal [facility] Microscopic observation Gram stain Nom (Unsp spec) Positive Abnormal [facility] Basic Metabolic Panelon Anion gap [Moles/Vol] 10 mmol/L 5 - 15 mmol/L [facility] Calcium [Mass/Vol] 9.2 mg/dL 8.5 - 10. 5 mg/dL [facility] Chloride [Moles/Vol] 114 mmol/L High 98 - 10 9 mmol/L [facility] CO2 [Moles/Vol] 24 mmol/L 22 - 32 mmol/L [facility] Creatinine [Mass/Vol] 1.27 mg/dL High 0.40 - 1.00 mg/dL [facility] EGFR Non-Race Dependent 50 Low - PINF [facility] Glucose [Mass/Vol] 127 mg/dL High 65 - 99 mg/dL [facility] Interpretation and review of laboratory results Abnormal [facility] Potassium [Moles/Vol] 3.9 mmol/L 3.5 - 5.0 mmol/L [facility] Sodium [Moles/Vol] 148 mmol/L High 134 - 146 mmol/L [facility] Urea nitrogen [Mass/Vol] 24 mg/dL High 5 - 23 mg/dL [facility] CBC WITH AUTO DIFFERENTIALon 09-21-2024 BASOPHILS ABSOLUTE COUNT (10*3/UL) BY AUTOMATED COUNT 0.1 10*3/uL Normal [facility] Comment on above: Performed By: #### A MMON #### [facility] ([facility]) [address] [place] [address] VIR BASOPHILS RELATIVE PERCENT BY AUTOMATED COUNT 0.7 % Normal [facility] Comment on above: Performed By: #### A MMON #### [facility] ([facility]) [address] [place] [address] VIR CELLAVISION DIFFERENTIAL TYPE AUTOMATED DIFFERENTIAL Normal [facility] Comment on above: Performed By: #### A MMON #### [facility] ([facility]) [address] [place] [address] VIR Eosinophils (Bld) [#/Vol] 0.0 10*3/uL Normal [facility] Comment on above: Performed By: #### A MMON #### [facility] ([facility]) [address] [place] [address] VIR EOSINOPHILS RELATIVE PERCENT BY AUTOMATED COUNT 0.0 % Normal [facility] Comment on above: Performed By: #### A MMON #### [facility] ([facility]) [address] [place] [address] VIR Erythrocyte distribution width (RBC) [Ratio] 15.1 % High 11.5-15 [facility] Comment on above: Performed By: #### A MMON #### [facility] ([facility]) [address] [place] [address] VIR Hematocrit (Bld) [Volume fraction] 33.6 % Low 35-47 [facility] Comment on above: Performed By: #### A MMON #### [facility] ([facility]) [address] [place] [address] VIR Hemoglobin (Bld) [Mass/Vol] 11.0 g/dL Low 11.7-15.5 [facility] Comment on above: Performed By: #### A MMON #### [facility] ([facility]) [address] [place] [address] VIR LYMPHOCYTES ABSOLUTE COUNT (10*3/UL) BY AUTOMATED COUNT 0.8 10*3/uL Normal [facility] Comment on above: Performed By: #### A MMON #### [facility] ([facility]) [address] [place] [address] VIR LYMPHOCYTES RELATIVE PERCENT BY AUTOMATED COUNT 6.2 % Normal [facility] Comment on above: Performed By: #### A MMON #### [facility] ([facility]) [address] [place] [address] VIR MCH (RBC) [Entitic mass] 27.1 pg Normal 27-34 [facility] Comment on above: Performed By: #### A MMON #### [facility] ([facility]) [address] [place] [address] VIR MCHC (RBC) [Mass/Vol] 32.6 g/dL Normal 32-36 [facility] Comment on above: Performed By: #### A MMON #### [facility] ([facility]) [address] [place] [address] VIR MCV (RBC) [Entitic vol] 83 fL Normal 80-100 [facility] Comment on above: Performed By: #### A MMON #### [facility] ([facility]) [address] [place] [address] VIR MONOCYTES ABSOLUTE COUNT (10*3/UL) BY AUTOMATED COUNT 0.6 10*3/uL Normal [facility] Comment on above: Performed By: #### A MMON #### [facility] ([facility]) [address] [place] [address] VIR MONOCYTES RELATIVE PERCENT BY AUTOMATED COUNT 4.8 % Normal [facility] Comment on above: Performed By: #### A MMON #### [facility] ([facility]) [address] [place] [address] VIR NEUTROPHILS ABSOLUTE COUNT BY AUTOMATED COUNT 10.8 10*3/uL Normal [facility] Comment on above: Performed By: #### A MMON #### [facility] ([facility]) [address] [place] [address] VIR NEUTROPHILS RELATIVE PERCENT BY AUTOMATED COUNT 88.3 % Normal [facility] Comment on above: Performed By: #### A MMON #### [facility] ([facility]) [address] [facility] [address] [place] [address] VIR Platelet mean volume (Bld) [Entitic vol] 9.2 fL Normal 7-12 [facility] Comment on above: Performed By: #### A MMON #### [facility] ([facility]) [address] [facility] [address] [place] [address] VIR Platelets (Bld) [#/Vol] 183 10*3/uL Normal 150-450 [facility] Comment on above: Performed By: #### A MMON #### [facility] ([facility]) [address] [facility] [address] [place] [address] VIR RBC COUNT 4.05 X10E12/L Normal 3.8-5.2 [facility] Comment on above: Performed By: #### A MMON #### [facility] ([facility]) [address] [facility] [address] [place] [address] VIR WBC (Bld) [#/Vol] 12.2 10*3/uL High 4-11 [facility] Comment on above: Performed By: #### A MMON #### [facility] ([facility]) [address] [facility] [address] [place] [address] VIR CBC auto differentialon 05-0 -2024 Basophils (Bld) [#/Vol] 0.1 10*3/uL [facility] Basophils/100 WBC (Bld) 0.7 % [facility] Differential cell count method Nom (Bld) AUTOMATED DIFFERENTIAL [facility] Eosinophils (Bld) [#/Vol] 0 10*3/uL [facility] Eosinophils/100 WBC (Bld) 0 % [facility] Erythrocyte distribution width (RBC) [Ratio] 15.1 % High 11.5 - 15 % [facility] Hematocrit (Bld) [Volume fraction] 33.6 % Low 35 - 47 % [facility] Hemoglobin (Bld) [Mass/Vol] 11 g/dL Low 11.7 - 15.5 g/dL [facility] Interpretation and review of laboratory results Abnormal [facility] Lymphocytes (Bld) [#/Vol] 0.8 10*3/uL [facility] Lymphocytes/100 WBC (Bld) 6.2 % [facility] MCH (RBC) [Entitic mass] 27.1 pg 27 - 34 pg [facility] MCHC (RBC) [Mass/Vol] 32.6 g/dL 32 - 3 6 g/dL [facility] MCV (RBC) [Entitic vol] 83 fL 80 - 100 fL [facility] Monocytes (Bld) [#/Vol] 0.6 10*3/uL [facility] Monocytes/100 WBC (Bld) 4.8 % [facility] Neutrophils (Bld) [#/Vol] 10.8 10*3/uL [facility] Neutrophils/100 WBC (Bld) 88.3 % [facility] Platelet mean volume (Bld) [Entitic vol] 9.2 fL 7 - 12 fL [facility] Platelets (Bld) [#/Vol] 183 10*3/uL [facility] RBC (Bld) [#/Vol] 4.05 10*6/uL [facility] WBC LM Ql (Sput) 12.2 High [facility] ELECTROLYTE PANELon 09-22-19 25 Anion gap [Moles/Vol] 11 mmol/L Normal 5-15 [facility] Comment on above: Performed By: #### C MP #### [facility] ([facility]) [address] [place] [address] VIR Chloride [Moles/Vol] 113 mmol/L High 98-109 [facility] Comment on above: Performed By: #### C MP #### [facility] ([facility]) [address] [place] [address] VIR CO2 [Moles/Vol] 22 mmol/L Normal 22-32 [facility] Comment on above: Performed By: #### C MP #### [facility] ([facility]) [address] [place] [address] VIR Potassium [Moles/Vol] 4.2 mmol/L Normal 3.5-5.0 [facility] Comment on above: Performed By: #### C MP #### [facility] ([facility]) [address] [place] [address] VIR Sodium [Moles/Vol] 146 mmol/L Normal 134-146 [facility] Comment on above: Performed By: #### C MP #### [facility] ([facility]) [address] [place] [address] VIR Anion gap [Moles/Vol] 9 mmol/L Normal 5-15 [facility] Comment on above: Performed By: #### L ACTS #### [facility] ([facility]) [address] [place] [address] VIR Chloride [Moles/Vol] 112 mmol/L High 98-109 [facility] Comment on above: Performed By: #### L ACTS #### [facility] ([facility]) [address] [place] [address] VIR CO2 [Moles/Vol] 24 mmol/L Normal 22-32 [facility] Comment on above: Performed By: #### L ACTS #### [facility] ([facility]) [address] [place] [address] VIR Potassium [Moles/Vol] 4.1 mmol/L Normal 3.5-5.0 [facility] Comment on above: Performed By: #### L ACTS #### [facility] ([facility]) [address] [place] [address] VIR Sodium [Moles/Vol] 145 mmol/L Normal 134-146 [facility] Comment on above: Performed By: #### L ACTS #### [facility] ([facility]) [address] [place] [address] VIR Electrolyte panelOrdered By: Tk Keene on 09-21-2024 Anion gap [Moles/Vol] 11 mmol/L 5 - 15 mmol/L [facility] Chloride [Moles/Vol] 113 mmol/L High 98 - 10 9 mmol/L [facility] CO2 [Moles/Vol] 22 mmol/L 22 - 32 mmol/L [facility] Interpretation and review of laboratory results Abnormal [facility] Potassium [Moles/Vol] 4.2 mmol/L 3.5 - 5.0 mmol/L [facility] Sodium [Moles/Vol] 146 mmol/L 134 - 146 mmol/L [facility] Electrolyte panelOrdered By: Alexa Carrero on 09-21-2024 Anion gap [Moles/Vol] 9 mmol/L 5 - 15 mmol/L [facility] Chloride [Moles/Vol] 112 mmol/L High 98 - 10 9 mmol/L [facility] CO2 [Moles/Vol] 24 mmol/L 22 - 32 mmol/L [facility] Interpretation and review of laboratory results Abnormal [facility] Potassium [Moles/Vol] 4.1 mmol/L 3.5 - 5.0 mmol/L [facility] Sodium [Moles/Vol] 145 mmol/L 134 - 146 mmol/L [facility] Glomerular basement membrane IgG ABon 09-21-2024 Glomerular basement membrane IgG Qn (S) NINF [facility] IONIZED CALCIUMon 09-21-2024 IONIZED CALCIUM - ICAN 5.1 mg/dL Normal 4.5-5.3 [facility] Comment on above: Performed By: #### A MMON #### [facility] ([facility]) [address] [place] [address] VIR IONIZED MAGNESIUMon 09-22-19 25 Magnesium [Moles/Vol] 0.61 mmol/L Normal 0.45-0.74 [facility] Comment on above: Performed By: #### L ACTS #### [facility] ([facility]) [address] [place] [address] VIR Ionized calciumon 09-21-2024 Calcium.ionized ISE [Moles/Vol] 5.1 mg/dL 4.5 - 5.3 mg/dL [facility] Interpretation and review of laboratory results Normal [facility] Ionized magnesiumon 09-22-19 Interpretation and review of laboratory results Normal [facility] Magnesium Ionized ISE (Bld) [Moles/Vol] 0.61 mmol/L 0.45 - 0.74 mmol/L [facility] MAGNESIUMon 09-21-2024 Magnesium [Mass/Vol] 1.8 mg/dL Normal 1.8-2.6 [facility] Comment on above: Performed By: #### A MMON #### [facility] ([facility]) [address] [place] [address] VIR Magnesiumon 09-21-2024 Magnesium [Mass/Vol] 1.8 mg/dL 1.8 - 2 .6 mg/dL [facility] Myeloperoxidase ABon 025 Myeloperoxidase Ab Qn (S) [facility] No Panel Informationon 09-21 Interpretation and review of laboratory results Normal [facility] Interpretation and review of laboratory results Normal [facility] PHOSPHORUSon 09-21-2024 Phosphate [Mass/Vol] 2.7 mg/dL Normal 2.4-4.9 [facility] Comment on above: Performed By: #### L ACTS #### [facility] ([facility]) [address] [place] [address] VIR Phosphoruson 09-21-2024 Phosphate [Mass/Vol] 2.7 mg/dL 2.4 - 4 .9 mg/dL [facility] Proteinase 3 AB PR3on 2024 Proteinase 3 Ab Qn (S) [facility] VANCOMYCIN, RANDOMon 025 VANCOMYCIN 16.0 ug/mL Normal 5.0-40.0 [facility] Comment on above: Order Comment: Resul t did not trigger repeat Lactate, re-order if needed. Performed By: #### L ACTS #### [facility] ([facility]) [address] [place] [address] VIR Vancomycin, randomon 025 Interpretation and review of laboratory results Normal [facility] Vancomycin [Susc] 16 ug/mL 5.0 - 40.0 ug/mL [facility] BASIC METABOLIC PANELon 05 Anion gap [Moles/Vol] 11 mmol/L Normal 5-15 [facility] Comment on above: Performed By: #### N UM #### [facility] ([facility]) [address] [place] [address] VIR Calcium [Mass/Vol] 9.3 mg/dL Normal 8.5-10.5 [facility] Comment on above: Performed By: #### N UM #### [facility] ([facility]) [address] [place] [address] VIR Chloride [Moles/Vol] 119 mmol/L High 98-109 [facility] Comment on above: Performed By: #### N UM #### [facility] ([facility]) [address] [place] [address] VIR CO2 [Moles/Vol] 24 mmol/L Normal 22-32 [facility] Comment on above: Performed By: #### N UM #### [facility] ([facility]) [address] [place] [address] VIR Creatinine [Mass/Vol] 2.60 mg/dL High 0.40-1.00 [facility] Comment on above: Result Comment: METH OD TRACEABLE TO IDMS STANDARD Performed By: #### N UM #### [facility] ([facility]) [address] [place] [address] VIR GFR/1.73 sq M.predicted among non-blacks MDRD (S/P/Bld) [Vol rate/Area] 21 mL/min/{1.73_m2} Low >=60 [facility] Comment on above: Result Comment: Repo rted eGFR is based on the CKD-EPI 2020 equation that does not use a race coefficient. Performed By: #### N UM #### [facility] ([facility]) [address] [place] [address] VIR Glucose [Mass/Vol] 149 mg/dL High 65-99 [facility] Comment on above: Performed By: #### N UM #### [facility] ([facility]) [address] [place] [address] VIR Potassium [Moles/Vol] 4.0 mmol/L Normal 3.5-5.0 [facility] Comment on above: Performed By: #### N UM #### [facility] ([facility]) [address] [place] [address] VIR Sodium [Moles/Vol] 154 mmol/L High 134-146 [facility] Comment on above: Performed By: #### N UM #### [facility] ([facility]) [address] [place] [address] VIR Urea nitrogen [Mass/Vol] 38 mg/dL High 5-23 [facility] Comment on above: Performed By: #### N UM #### [facility] ([facility]) [address] [place] [address] VIR BLOOD CULTUREon 09-20-2024 Bacteria identified Cx Nom (Bld) CULTURE RESULTS NO GROWTH 5 DAYS Normal [facility] Comment on above: Order Comment: Resul t did not trigger repeat Lactate, re-order if needed. Performed By: #### L ACTS #### [facility] ([facility]) [address] [place] [address] VIR Bacteria identified Cx Nom (Bld) CULTURE RESULTS NO GROWTH 5 DAYS Normal [facility] Comment on above: Order Comment: *SIRS Criteria: [...] be affected. Performed By: #### C #### [facility] ([facility]) [address] [place] [address] VIR Basic Metabolic Panelon Anion gap [Moles/Vol] 11 mmol/L 5 - 15 mmol/L [facility] Calcium [Mass/Vol] 9.3 mg/dL 8.5 - 10. 5 mg/dL [facility] Chloride [Moles/Vol] 119 mmol/L High 98 - 10 9 mmol/L [facility] CO2 [Moles/Vol] 24 mmol/L 22 - 32 mmol/L [facility] Creatinine [Mass/Vol] 2.6 mg/dL High 0.40 - 1.00 mg/dL [facility] EGFR Non-Race Dependent 21 Low - PINF [facility] Glucose [Mass/Vol] 149 mg/dL High 65 - 99 mg/dL [facility] Interpretation and review of laboratory results Abnormal [facility] Potassium [Moles/Vol] 4 mmol/L 3.5 - 5.0 mmol/L [facility] Sodium [Moles/Vol] 154 mmol/L High 134 - 146 mmol/L [facility] Urea nitrogen [Mass/Vol] 38 mg/dL High 5 - 23 mg/dL [facility] CBC WITH AUTO DIFFERENTIALon 09-20-2024 BASOPHILS ABSOLUTE COUNT (10*3/UL) BY AUTOMATED COUNT 0.0 10*3/uL [facility] Comment on above: Performed By: #### N UM #### [facility] ([facility]) [address] [place] [address] VIR BASOPHILS RELATIVE PERCENT BY AUTOMATED COUNT 0.5 % Normal [facility] Comment on above: Performed By: #### N UM #### [facility] ([facility]) [address] [place] [address] VIR CELLAVISION DIFFERENTIAL TYPE AUTOMATED DIFFERENTIAL Normal [facility] Comment on above: Performed By: #### N UM #### [facility] ([facility]) [address] [place] [address] VIR Eosinophils (Bld) [#/Vol] 0.0 10*3/uL Normal [facility] Comment on above: Performed By: #### N UM #### [facility] ([facility]) [address] [place] [address] VIR EOSINOPHILS RELATIVE PERCENT BY AUTOMATED COUNT 0.0 % Normal [facility] Comment on above: Performed By: #### N UM #### [facility] ([facility]) [address] [place] [address] VIR Erythrocyte distribution width (RBC) [Ratio] 15.6 % High 11.5-15 [facility] Comment on above: Performed By: #### N UM #### [facility] ([facility]) [address] [place] [address] VIR Hematocrit (Bld) [Volume fraction] 33.5 % Low 35-47 [facility] Comment on above: Performed By: #### N UM #### [facility] ([facility]) [address] [place] [address] VIR Hemoglobin (Bld) [Mass/Vol] 11.0 g/dL Low 11.7-15.5 [facility] Comment on above: Performed By: #### N UM #### [facility] ([facility]) [address] [place] [address] VIR LYMPHOCYTES ABSOLUTE COUNT (10*3/UL) BY AUTOMATED COUNT 0.5 10*3/uL [facility] Comment on above: Performed By: #### N UM #### [facility] ([facility]) [address] [place] [address] VIR LYMPHOCYTES RELATIVE PERCENT BY AUTOMATED COUNT 5.6 % Normal [facility] Comment on above: Performed By: #### N UM #### [facility] ([facility]) [address] [facility] [place] [address] VIR MCH (RBC) [Entitic mass] 26.9 pg Low 27-34 [facility] Comment on above: Performed By: #### N UM #### [facility] ([facility]) [address] [place] [address] VIR MCHC (RBC) [Mass/Vol] 32.8 g/dL Normal 32-36 [facility] Comment on above: Performed By: #### N UM #### [facility] ([facility]) [address] [facility] [address] [place] [address] VIR MCV (RBC) [Entitic vol] 82 fL Normal 80-100 [facility] Comment on above: Performed By: #### N UM #### [facility] ([facility]) [address] [place] [address] VIR MONOCYTES ABSOLUTE COUNT (10*3/UL) BY AUTOMATED COUNT 0.4 10*3/uL Normal [facility] Comment on above: Performed By: #### N UM #### [facility] ([facility]) [address] [facility] [place] [address] VIR MONOCYTES RELATIVE PERCENT BY AUTOMATED COUNT 4.3 % Normal [facility] Comment on above: Performed By: #### N UM #### [facility] ([facility]) [address] [facility] [place] [address] VIR NEUTROPHILS ABSOLUTE COUNT BY AUTOMATED COUNT 8.0 10*3/uL Normal [facility] Comment on above: Performed By: #### N UM #### [facility] ([facility]) [address] [address] [facility] [address] VIR NEUTROPHILS RELATIVE PERCENT BY AUTOMATED COUNT 89.6 % Normal [facility] Comment on above: Performed By: #### N UM #### [facility] ([facility]) [address] [place] [address] VIR Platelet mean volume (Bld) [Entitic vol] 9.0 fL Normal 7-12 [facility] Comment on above: Performed By: #### N UM #### [facility] ([facility]) [address] [place] [address] VIR Platelets (Bld) [#/Vol] 190 10*3/uL Normal 150-450 [facility] Comment on above: Performed By: #### N UM #### [facility] ([facility]) [address] [place] [address] VIR RBC COUNT 4.08 X10E12/L Normal 3.8-5.2 [facility] Comment on above: Performed By: #### N UM #### [facility] ([facility]) [address] [place] [address] VIR WBC (Bld) [#/Vol] 8.9 10*3/uL Normal 4-11 [facility] Comment on above: Performed By: #### N UM #### [facility] ([facility]) [address] [place] [address] VIR CBC auto differentialon 05-0 Basophils (Bld) [#/Vol] 0 10*3/uL [facility] Basophils/100 WBC (Bld) 0.5 % [facility] Differential cell count method Nom (Bld) AUTOMATED DIFFERENTIAL [facility] Eosinophils (Bld) [#/Vol] 0 10*3/uL [facility] Eosinophils/100 WBC (Bld) 0 % [facility] Erythrocyte distribution width (RBC) [Ratio] 15.6 % High 11.5 - 15 % [facility] Hematocrit (Bld) [Volume fraction] 33.5 % Low 35 - 47 % [facility] Hemoglobin (Bld) [Mass/Vol] 11 g/dL Low 11.7 - 15.5 g/dL [facility] Interpretation and review of laboratory results Abnormal [facility] Lymphocytes (Bld) [#/Vol] 0.5 10*3/uL [facility] Lymphocytes/100 WBC (Bld) 5.6 % [facility] MCH (RBC) [Entitic mass] 26.9 pg Low 27 - 34 pg [facility] MCHC (RBC) [Mass/Vol] 32.8 g/dL 32 - 3 6 g/dL [facility] MCV (RBC) [Entitic vol] 82 fL 80 - 100 fL [facility] Monocytes (Bld) [#/Vol] 0.4 10*3/uL [facility] Monocytes/100 WBC (Bld) 4.3 % [facility] Neutrophils (Bld) [#/Vol] 8 10*3/uL [facility] Neutrophils/100 WBC (Bld) 89.6 % [facility] Platelet mean volume (Bld) [Entitic vol] 9 fL 7 - 12 fL [facility] Platelets (Bld) [#/Vol] 190 10*3/uL [facility] RBC (Bld) [#/Vol] 4.08 10*6/uL [facility] WBC LM Ql (Sput) 8.[address] [facility] [address] ABDOMEN AND PELVIS WO [...] Mejia MD on 09/20/2024 3:53 PM Normal [facility] CT Abdomen and Pelvis WO con traston 09-20-2024 SECTRAPACS [facility] Radiology Study observation (narrative) [facility] CT Abdomen and Pelvis WO con trastOrdered By: Bipin Mejia on 09-20-2024 [facility] Work Phone: ELECTROLYTE PANELon 09-21-19 25 Anion gap [Moles/Vol] 9 mmol/L Normal 5-15 [facility] Comment on above: Performed By: #### A MMON #### [facility] ([facility]) [address] [place] [address] VIR Chloride [Moles/Vol] 113 mmol/L High 98-109 [facility] Comment on above: Performed By: #### A MMON #### [facility] ([facility]) [address] [place] [address] VIR CO2 [Moles/Vol] 25 mmol/L Normal 22-32 [facility] Comment on above: Performed By: #### A MMON #### [facility] ([facility]) [address] [place] [address] VIR Potassium [Moles/Vol] 5.1 mmol/L High 3.5-5.0 [facility] Comment on above: Result Comment: R-Sp ecimen markedly hemolyzed, results increased Performed By: #### A MMON #### [facility] ([facility]) [address] [place] [address] VIR Sodium [Moles/Vol] 147 mmol/L High 134-146 [facility] Comment on above: Result Comment: R-Sp ecimen markedly hemolyzed, results questionable due to hemolysis Performed By: #### A MMON #### [facility] ([facility]) [address] [place] [address] VIR Anion gap [Moles/Vol] 8 mmol/L Normal 5-15 [facility] Comment on above: Performed By: #### A MMON #### [facility] ([facility]) [address] [place] [address] VIR Chloride [Moles/Vol] 117 mmol/L High 98-109 [facility] Comment on above: Performed By: #### A MMON #### [facility] ([facility]) [address] [place] [address] VIR CO2 [Moles/Vol] 26 mmol/L Normal 22-32 [facility] Comment on above: Performed By: #### A MMON #### [facility] ([facility]) [address] [place] [address] VIR Potassium [Moles/Vol] 4.0 mmol/L Normal 3.5-5.0 [facility] Comment on above: Performed By: #### A MMON #### [facility] ([facility]) [address] [place] [address] VIR Sodium [Moles/Vol] 151 mmol/L High 134-146 [facility] Comment on above: Performed By: #### A MMON #### [facility] ([facility]) [address] [place] [address] VIR Electrolyte panelOrdered By: Med Quiros on 09-20-2024 Anion gap [Moles/Vol] 9 mmol/L 5 - 15 mmol/L [facility] Chloride [Moles/Vol] 113 mmol/L High 98 - 10 9 mmol/L [facility] CO2 [Moles/Vol] 25 mmol/L 22 - 32 mmol/L [facility] Interpretation and review of laboratory results Abnormal [facility] Potassium [Moles/Vol] 5.1 mmol/L High 3.5 - 5.0 mmol/L [facility] Sodium [Moles/Vol] 147 mmol/L High 134 - 146 mmol/L [facility] Electrolyte panelon 09-21-19 25 Anion gap [Moles/Vol] 8 mmol/L 5 - 15 mmol/L [facility] Chloride [Moles/Vol] 117 mmol/L High 98 - 10 9 mmol/L [facility] CO2 [Moles/Vol] 26 mmol/L 22 - 32 mmol/L [facility] Interpretation and review of laboratory results Abnormal [facility] Potassium [Moles/Vol] 4 mmol/L 3.5 - 5.0 mmol/L [facility] Sodium [Moles/Vol] 151 mmol/L High 134 - 146 mmol/L [facility] IONIZED CALCIUMon 09-20-2024 IONIZED CALCIUM - ICAN 5.2 mg/dL Normal 4.5-5.3 [facility] Comment on above: Performed By: #### N UM #### [facility] ([facility]) [address] [facility] [place] [address] VIR IONIZED MAGNESIUMon 09-21-19 25 Magnesium [Moles/Vol] 0.64 mmol/L Normal 0.45-0.74 [facility] Comment on above: Performed By: #### A MMON #### [facility] ([facility]) [address] [place] [address] VIR Ionized calciumon 09-20-2024 Calcium.ionized ISE [Moles/Vol] 5.2 mg/dL 4.5 - 5.3 mg/dL [facility] Interpretation and review of laboratory results Normal [facility] Ionized magnesiumon 09-21-19 25 Interpretation and review of laboratory results Normal [facility] Magnesium Ionized ISE (Bld) [Moles/Vol] 0.64 mmol/L 0.45 - 0.74 mmol/L [facility] MAGNESIUMon 09-20-2024 Magnesium [Mass/Vol] 1.8 mg/dL Normal 1.8-2.6 [facility] Comment on above: Performed By: #### N UM #### [facility] ([facility]) [address] [place] [address] VIR MR BRAIN SYNAPTIVEon 025 MR BRAIN SYNAPTIVE MR BRAIN SYNAPTIVE History: 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 I favor a primary [employer] neoplasm such as a glioblastoma or astrocytoma. Metastasis can also present in this fashion. Finalized by Juan Antonio Lindquist MD on 09/20/2024 7:17 AM Normal [facility] MR Brainon 09-20-2024 SECTRAPACS [facility] Radiology Study observation (narrative) [facility] MR BrainOrdered By: Juan Antonio gilmore on 09-20-2024 [facility] Work Phone: Magnesiumon 09-20-2024 Magnesium [Mass/Vol] 1.8 mg/dL 1.8 - 2 .6 mg/dL [facility] No Panel Informationon 09-20 Interpretation and review of laboratory results Normal [facility] PHOSPHORUSon 09-20-2024 Phosphate [Mass/Vol] 3.5 mg/dL Normal 2.4-4.9 [facility] Comment on above: Performed By: #### N UM #### [facility] ([facility]) [address] [place] [address] VIR Phosphoruson 09-20-2024 Phosphate [Mass/Vol] 3.5 mg/dL 2.4 - 4 .9 mg/dL [facility] VANCOMYCIN, RANDOMon 025 VANCOMYCIN 10.0 ug/mL Normal 5.0-40.0 [facility] Comment on above: Order Comment: Peak 30-40 ug/mLTrough 5-20 ug/ml Performed By: #### A MMON #### [facility] ([facility]) [address] [place] [address] VIR Vancomycin, randomon 025 Interpretation and review of laboratory results Normal [facility] Vancomycin [Susc] 10 ug/mL 5.0 - 40.0 ug/mL [facility] X-ray abdomen NG Tube placem ent 1 viewon 09-20-2024 SECTRAPACS [facility] Radiology Study observation (narrative) [facility] X-ray abdomen NG Tube placem ent 1 viewOrdered By: Thad Aguero on 09-20-2024 [facility] Work Phone: XR ABD NG TUBE PLACEMENT 1 V IEWon 09-20-2024 XR ABD NG TUBE PLACEMENT 1 VIEW XR ABD NG TUBE PLACEMENT 1 VIEW Supine abdominal radiograph HISTORY: NG placement COMPARISON: None IMPRESSION: NG tube extends below the diaphragm into the stomach with tip in the distal gastric body. Finalized by Thad Aguero MD on 09/20/2024 8:04 PM Normal [facility] AMMONIAon 09-19-2024 Ammonia (P) [Moles/Vol] 24 umol/L Normal 18-72 [facility] Comment on above: Performed By: #### A MMON #### [facility] ([facility]) [address] [place] [address] VIR MAGI SCREEN W/ REFLEXon 09-19 MAGI SCREEN W/REFLEX Negative Normal Negative [facility] Comment on above: Order Comment: Resul t did not trigger repeat Lactate, re-order if needed. Performed By: #### L ACTS #### [facility] ([facility]) [address] [place] [address] VIR APTTon 09-19-2024 aPTT Coag (PPP) [Time] 28 s [facility] Interpretation and review of laboratory results Normal [facility] aPTT Coag (Bld) [Time] 28 s Normal 26-37 [facility] Comment on above: Performed By: #### P TT #### [facility] ([facility]) [address] [place] [address] VIR Ammoniaon 09-19-2024 Ammonia (P) [Moles/Vol] 24 umol/L 18 - 72 umol/L [facility] Interpretation and review of laboratory results Normal [facility] BASIC METABOLIC PANELon 05- Anion gap [Moles/Vol] 17 mmol/L High 5-15 [facility] Comment on above: Performed By: #### P INR #### [facility] ([facility]) [address] [place] [address] VIR Calcium [Mass/Vol] 9.2 mg/dL Normal 8.5-10.5 [facility] Comment on above: Performed By: #### P INR #### [facility] ([facility]) [address] [place] [address] VIR Chloride [Moles/Vol] 120 mmol/L High 98-109 [facility] Comment on above: Performed By: #### P INR #### [facility] ([facility]) [address] [place] [address] VIR Creatinine [Mass/Vol] 7.54 mg/dL High 0.40-1.00 [facility] Comment on above: Result Comment: METH OD TRACEABLE TO IDMS STANDARD Performed By: #### P INR #### [facility] ([facility]) [address] [place] [address] VIR GFR/1.73 sq M.predicted among non-blacks MDRD (S/P/Bld) [Vol rate/Area] 6 mL/min/{1.73_m2} Low >=60 [facility] Comment on above: Result Comment: Repo rted eGFR is based on the CKD-EPI 2020 equation that does not use a race coefficient. Performed By: #### P INR #### [facility] ([facility]) [address] [place] [address] VIR Glucose [Mass/Vol] 107 mg/dL High 65-99 [facility] Comment on above: Performed By: #### P INR #### [facility] ([facility]) [address] [place] [address] VIR Potassium [Moles/Vol] 4.5 mmol/L Normal 3.5-5.0 [facility] Comment on above: Performed By: #### P INR #### [facility] ([facility]) [address] [place] [address] VIR Sodium [Moles/Vol] 159 mmol/L High 134-146 [facility] Comment on above: Performed By: #### P INR #### [facility] ([facility]) [address] [place] [address] VIR Urea nitrogen [Mass/Vol] 81 mg/dL High 5-23 [facility] Comment on above: Performed By: #### P INR #### [facility] ([facility]) [address] [place] [address] VIR BEDSIDE GLUCOSEon 09-19-2024 Glucose [Mass/Vol] 110 mg/dL High 65-99 [facility] Comment on above: Performed By: #### N UM #### [facility] ([facility]) [address] [place] [address] VIR BLOOD CULTUREon 09-19-2024 Bacteria identified Cx Nom (Bld) CULTURE RESULTS STAPHYLOCOCCUS, COAGULASE NEGATIVE Staphylococcus, coagulase negative Not S. Lugdunensis Possible Collection Contamination STAPHYLOCOCCUS, COAGULASE NEGATIVE Staphylococcus, coagulase negative Not S. Lugdunensis Variant Possible Collection Contamination GRAM STAIN Gram positive cocci in clusters Abnormal [facility] Comment on above: Order Comment: *SIRS Criteria: (must display 2 without other explanation)-Temperature < 36 or >38-Pulse >90-Resp rate >20-WBC less than 4K or greater than 12KRepeat blood cultures not needed:-To document that a blood culture is a contaminant when 1 of 2 bottles is positive for a common contaminant (already listed in [facility] with the culture result)-To document clearance of gram negative bacteremia in patients with suspected urinary source who are improvingSuboptimal volume of blood collected, Results may be affected. Performed By: #### N UM #### [facility] ([facility]) [address] [place] [address] VIR Bacteria identified Cx Nom (Bld) CULTURE RESULTS NO GROWTH 5 DAYS Normal [facility] Comment on above: Order Comment: *SIRS Criteria: (must display 2 without other explanation)-Temperature < 36 or >38-Pulse >90-Resp rate >20-WBC less than 4K or greater than 12KRepeat blood cultures not needed:-To document that a blood culture is a contaminant when 1 of 2 bottles is positive for a common contaminant (already listed in [facility] with the culture result)-To document clearance of gram negative bacteremia in patients with suspected urinary source who are improving Performed By: #### N UM #### [facility] ([facility]) [address] [place] [address] VIR BLOOD GAS, ARTERIALon 2024 BASE,DEFICIT -8.0 mmol/L Low 0.0-2.0 [facility] Comment on above: Performed By: #### P INR #### [facility] ([facility]) [address] [place] [address] VIR HCO3 (Bld) [Moles/Vol] 16.8 mmol/L Low 22.0-26.0 [facility] Comment on above: Performed By: #### P INR #### [facility] ([facility]) [address] [place] [address] VIR Oxygen saturation in Blood 95.0 % Normal >90.0 [facility] Comment on above: Performed By: #### P INR #### [facility] ([facility]) [address] [place] [address] VIR PCO2 ARTERIAL 29.4 mmHg Low 35.0-45.0 [facility] Comment on above: Performed By: #### P INR #### [facility] ([facility]) [address] [place] [address] VIR PH ARTERIAL 7.364 Normal 7.350-7.45 0 [facility] Comment on above: Performed By: #### P INR #### [facility] ([facility]) [address] [place] [address] VIR PO2 ARTERIAL 78 mmHg Low 80-100 [facility] Comment on above: Performed By: #### P INR #### [facility] ([facility]) [address] [place] [address] VIR POC WILI'S TEST Pass Normal [facility] Comment on above: Performed By: #### P INR #### [facility] ([facility]) [address] [place] [address] VIR SAMPLE SITE L Rad Normal [facility] Comment on above: Performed By: #### P INR #### [facility] ([facility]) [address] [place] [address] VIR SAMPLE TYPE ARTERIAL Normal [facility] Comment on above: Performed By: #### P INR #### [facility] ([facility]) [address] [place] [address] VIR SOURCE OF OXYGEN Room Air Normal [facility] Comment on above: Performed By: #### P INR #### [facility] ([facility]) [address] [place] [address] VIR Basic Metabolic Panelon 05-0 Anion gap [Moles/Vol] 17 mmol/L High 5 - 15 mmol/L [facility] Calcium [Mass/Vol] 9.2 mg/dL 8.5 - 10. 5 mg/dL [facility] Chloride [Moles/Vol] 120 mmol/L High 98 - 10 9 mmol/L [facility] CO2 [Moles/Vol] 22 mmol/L 22 - 32 mmol/L [facility] Creatinine [Mass/Vol] 7.54 mg/dL High 0.40 - 1.00 mg/dL [facility] EGFR Non-Race Dependent 6 Low - PINF [facility] Glucose [Mass/Vol] 107 mg/dL High 65 - 99 mg/dL [facility] Potassium [Moles/Vol] 4.5 mmol/L 3.5 - 5.0 mmol/L [facility] Sodium [Moles/Vol] 159 mmol/L High 134 - 146 mmol/L [facility] Urea nitrogen [Mass/Vol] 81 mg/dL High 5 - 23 mg/dL [facility] Bedside Glucose *Place/Obtai n serum glucose if >500 per glucometer.on 09-19-2024 Glucose [Mass/Vol] 110 mg/dL High 65 - 99 mg/dL [facility] Interpretation and review of laboratory results Abnormal [facility] Blood pathogens panel KELSIE+no n-probe (Pos bld culture)Ordered By: Dion Shipley on 09-19-2024 Interpretation and review of laboratory results Abnormal [facility] mecA/C gene PCR Detected Abnormal Not Detected [facility] Staphylococcus epidermidis PCR Detected Abnormal Not Detected [facility] CBC WITH AUTO DIFFERENTIALon 09-19-2024 BASOPHILS ABSOLUTE COUNT (10*3/UL) BY AUTOMATED COUNT 0.1 10*3/uL Normal [facility] Comment on above: Performed By: #### P INR #### [facility] ([facility]) [address] [place] [address] VIR BASOPHILS RELATIVE PERCENT BY AUTOMATED COUNT 0.8 % Normal [facility] Comment on above: Performed By: #### P INR #### [facility] ([facility]) [address] [place] [address] VIR CELLAVISION DIFFERENTIAL TYPE AUTOMATED DIFFERENTIAL Normal [facility] Comment on above: Performed By: #### P INR #### [facility] ([facility]) [address] [place] [address] VIR Eosinophils (Bld) [#/Vol] 0.3 10*3/uL Normal [facility] Comment on above: Performed By: #### P INR #### [facility] ([facility]) [address] [place] [address] VIR EOSINOPHILS RELATIVE PERCENT BY AUTOMATED COUNT 2.8 % Normal [facility] Comment on above: Performed By: #### P INR #### [facility] ([facility]) [address] [place] [address] VIR Erythrocyte distribution width (RBC) [Ratio] 15.6 % High 11.5-15 [facility] Comment on above: Performed By: #### P INR #### [facility] ([facility]) [address] [place] [address] VIR Hematocrit (Bld) [Volume fraction] 34.9 % Low 35-47 [facility] Comment on above: Performed By: #### P INR #### [facility] ([facility]) [address] [place] [address] VIR Hemoglobin (Bld) [Mass/Vol] 11.4 g/dL Low 11.7-15.5 [facility] Comment on above: Performed By: #### P INR #### [facility] ([facility]) [address] [place] [address] VIR LYMPHOCYTES ABSOLUTE COUNT (10*3/UL) BY AUTOMATED COUNT 0.7 10*3/uL [facility] Comment on above: Performed By: #### P INR #### [facility] ([facility]) [address] [place] [address] VIR LYMPHOCYTES RELATIVE PERCENT BY AUTOMATED COUNT 7.9 % Normal [facility] Comment on above: Performed By: #### P INR #### [facility] ([facility]) [address] [place] [address] VIR MCH (RBC) [Entitic mass] 27.0 pg Normal 27-34 [facility] Comment on above: Performed By: #### P INR #### [facility] ([facility]) [address] [place] [address] VIR MCHC (RBC) [Mass/Vol] 32.8 g/dL Normal 32-36 [facility] Comment on above: Performed By: #### P INR #### [facility] ([facility]) [address] [place] [address] VIR MCV (RBC) [Entitic vol] 82 fL Normal 80-100 [facility] Comment on above: Performed By: #### P INR #### [facility] ([facility]) [address] [place] [address] VIR MONOCYTES ABSOLUTE COUNT (10*3/UL) BY AUTOMATED COUNT 0.8 10*3/uL Normal [facility] Comment on above: Performed By: #### P INR #### [facility] ([facility]) [address] [place] [address] VIR MONOCYTES RELATIVE PERCENT BY AUTOMATED COUNT 8.9 % Normal [facility] Comment on above: Performed By: #### P INR #### [facility] ([facility]) [address] [place] [address] VIR NEUTROPHILS ABSOLUTE COUNT BY AUTOMATED COUNT 7.3 10*3/uL Normal [facility] Comment on above: Performed By: #### P INR #### [facility] ([facility]) [address] [place] [address] VIR NEUTROPHILS RELATIVE PERCENT BY AUTOMATED COUNT 79.6 % Normal [facility] Comment on above: Performed By: #### P INR #### [facility] ([facility]) [address] [place] [address] VIR Platelet mean volume (Bld) [Entitic vol] 9.2 fL Normal 7-12 [facility] Comment on above: Performed By: #### P INR #### [facility] ([facility]) [address] [place] [address] VIR Platelets (Bld) [#/Vol] 189 10*3/uL Normal 150-450 [facility] Comment on above: Performed By: #### P INR #### [facility] ([facility]) [address] [place] [address] VIR RBC COUNT 4.23 X10E12/L Normal 3.8-5.2 [facility] Comment on above: Performed By: #### P INR #### [facility] ([facility]) [address] [place] [address] VIR WBC (Bld) [#/Vol] 9.2 10*3/uL Normal 4-11 [facility] Comment on above: Performed By: #### P INR #### [facility] ([facility]) [address] [place] [address] VIR BASOPHILS ABSOLUTE COUNT (10*3/UL) BY AUTOMATED COUNT 0.1 10*3/uL Normal [facility] Comment on above: Performed By: #### C BCA #### [facility] ([facility]) [address] [facility] [address] [place] [address] VIR BASOPHILS RELATIVE PERCENT BY AUTOMATED COUNT 0.6 % Normal [facility] Comment on above: Performed By: #### C BCA #### [facility] ([facility]) [address] [place] [address] VIR CELLAVISION DIFFERENTIAL TYPE AUTOMATED DIFFERENTIAL Normal [facility] Comment on above: Performed By: #### C BCA #### [facility] ([facility]) [address] [place] [address] VIR Eosinophils (Bld) [#/Vol] 0.4 10*3/uL Normal [facility] Comment on above: Performed By: #### C BCA #### [facility] ([facility]) [address] [place] [address] VIR EOSINOPHILS RELATIVE PERCENT BY AUTOMATED COUNT 3.4 % Normal [facility] Comment on above: Performed By: #### C BCA #### [facility] ([facility]) [address] [place] [address] VIR Erythrocyte distribution width (RBC) [Ratio] 15.7 % High 11.5-15 [facility] Comment on above: Performed By: #### C BCA #### [facility] ([facility]) [address] [facility] [address] [place] [address] VIR Hematocrit (Bld) [Volume fraction] 34.9 % Low 35-47 [facility] Comment on above: Performed By: #### C BCA #### [facility] ([facility]) [address] [facility] [address] [place] [address] VIR Hemoglobin (Bld) [Mass/Vol] 11.5 g/dL Low 11.7-15.5 [facility] Comment on above: Performed By: #### C BCA #### [facility] ([facility]) [address] [facility] [address] [place] [address] VIR LYMPHOCYTES ABSOLUTE COUNT (10*3/UL) BY AUTOMATED COUNT 0.8 10*3/uL Normal [facility] Comment on above: Performed By: #### C BCA #### [facility] ([facility]) [address] [place] [address] VIR LYMPHOCYTES RELATIVE PERCENT BY AUTOMATED COUNT 7.5 % Normal [facility] Comment on above: Performed By: #### C BCA #### [facility] ([facility]) [address] [place] [address] VIR MCH (RBC) [Entitic mass] 27.7 pg Normal 27-34 [facility] Comment on above: Performed By: #### C BCA #### [facility] ([facility]) [address] [place] [address] VIR MCHC (RBC) [Mass/Vol] 33.1 g/dL Normal 32-36 [facility] Comment on above: Performed By: #### C BCA #### [facility] ([facility]) [address] [place] [address] VIR MCV (RBC) [Entitic vol] 84 fL Normal 80-100 [facility] Comment on above: Performed By: #### C BCA #### [facility] ([facility]) [address] [place] [address] VIR MONOCYTES ABSOLUTE COUNT (10*3/UL) BY AUTOMATED COUNT 0.9 10*3/uL Normal [facility] Comment on above: Performed By: #### C BCA #### [facility] ([facility]) [address] [place] [address] VIR MONOCYTES RELATIVE PERCENT BY AUTOMATED COUNT 9.2 % Normal [facility] Comment on above: Performed By: #### C BCA #### [facility] ([facility]) [address] [place] [address] VIR NEUTROPHILS ABSOLUTE COUNT BY AUTOMATED COUNT 8.2 10*3/uL Normal [facility] Comment on above: Performed By: #### C BCA #### [facility] ([facility]) [address] [place] [address] VIR NEUTROPHILS RELATIVE PERCENT BY AUTOMATED COUNT 79.3 % Normal [facility] Comment on above: Performed By: #### C BCA #### [facility] ([facility]) [address] [place] [address] VIR Platelet mean volume (Bld) [Entitic vol] 9.2 fL Normal 7-12 [facility] Comment on above: Performed By: #### C BCA #### [facility] ([facility]) [address] [place] [address] VIR Platelets (Bld) [#/Vol] 199 10*3/uL Normal 150-450 [facility] Comment on above: Performed By: #### C BCA #### [facility] ([facility]) [address] [place] [address] VIR RBC COUNT 4.16 X10E12/L Normal 3.8-5.2 [facility] Comment on above: Performed By: #### C BCA #### [facility] ([facility]) [address] [place] [address] VIR WBC (Bld) [#/Vol] 10.3 10*3/uL Normal 4-11 [facility] Comment on above: Performed By: #### C BCA #### [facility] ([facility]) [address] [place] [address] VIR CBC auto differentialon 05-0 -2024 Basophils (Bld) [#/Vol] 0.1 10*3/uL [facility] Basophils/100 WBC (Bld) 0.8 % [facility] Differential cell count method Nom (Bld) AUTOMATED DIFFERENTIAL [facility] Eosinophils (Bld) [#/Vol] 0.3 10*3/uL [facility] Eosinophils/100 WBC (Bld) 2.8 % [facility] Erythrocyte distribution width (RBC) [Ratio] 15.6 % High 11.5 - 15 % [facility] Hematocrit (Bld) [Volume fraction] 34.9 % Low 35 - 47 % [facility] Hemoglobin (Bld) [Mass/Vol] 11.4 g/dL Low 11.7 - 15.5 g/dL [facility] Interpretation and review of laboratory results Abnormal [facility] Lymphocytes (Bld) [#/Vol] 0.7 10*3/uL [facility] Lymphocytes/100 WBC (Bld) 7.9 % [facility] MCH (RBC) [Entitic mass] 27 pg 27 - 34 pg [facility] MCHC (RBC) [Mass/Vol] 32.8 g/dL 32 - 3 6 g/dL [facility] MCV (RBC) [Entitic vol] 82 fL 80 - 100 fL [facility] Monocytes (Bld) [#/Vol] 0.8 10*3/uL [facility] Monocytes/100 WBC (Bld) 8.9 % P [facility] Neutrophils (Bld) [#/Vol] 7.3 10*3/uL [facility] Neutrophils/100 WBC (Bld) 79.6 % [facility] Platelet mean volume (Bld) [Entitic vol] 9.2 fL 7 - 12 fL [facility] Platelets (Bld) [#/Vol] 189 10*3/uL [facility] RBC (Bld) [#/Vol] 4.23 10*6/uL [facility] WBC LM Ql (Sput) 9.2 [facility] Basophils (Bld) [#/Vol] 0.1 10*3/uL [facility] Basophils/100 WBC (Bld) 0.6 % P [facility] Differential cell count method Nom (Bld) AUTOMATED DIFFERENTIAL [facility] Eosinophils (Bld) [#/Vol] 0.4 10*3/uL [facility] Eosinophils/100 WBC (Bld) 3.4 % [facility] Erythrocyte distribution width (RBC) [Ratio] 15.7 % High 11.5 - 15 % [facility] Hematocrit (Bld) [Volume fraction] 34.9 % Low 35 - 47 % [facility] Hemoglobin (Bld) [Mass/Vol] 11.5 g/dL Low 11.7 - 15.5 g/dL [facility] Interpretation and review of laboratory results Abnormal [facility] Lymphocytes (Bld) [#/Vol] 0.8 10*3/uL [facility] Lymphocytes/100 WBC (Bld) 7.5 % [facility] MCH (RBC) [Entitic mass] 27.7 pg 27 - 34 pg [facility] MCHC (RBC) [Mass/Vol] 33.1 g/dL 32 - 3 6 g/dL [facility] MCV (RBC) [Entitic vol] 84 fL 80 - 100 fL [facility] Monocytes (Bld) [#/Vol] 0.9 10*3/uL [facility] Monocytes/100 WBC (Bld) 9.2 % [facility] Neutrophils (Bld) [#/Vol] 8.2 10*3/uL [facility] Neutrophils/100 WBC (Bld) 79.3 % [facility] Platelet mean volume (Bld) [Entitic vol] 9.2 fL 7 - 12 fL [facility] Platelets (Bld) [#/Vol] 199 10*3/uL [facility] RBC (Bld) [#/Vol] 4.16 10*6/uL [facility] WBC LM Ql (Sput) 10.3 [facility] CK TOTALon 09-19-2024 CPK 18 U/L Low 24-170 [facility] Comment on above: Performed By: #### P TT #### [facility] ([facility]) [address] [place] [address] VIR CPK 18 U/L Low 24-170 [facility] Comment on above: Performed By: #### C PK #### [facility] ([facility]) [address] [place] [address] VIR CK Totalon 09-19-2024 CK [Catalytic activity/Vol] 18 U/L Low 24 - 170 U/L [facility] CK [Catalytic activity/Vol] 18 U/L Low 24 - 170 U/L [facility] Interpretation and review of laboratory results Abnormal [facility] COMPLEMENT PROFILE (C3 AND C 4)on 09-19-2024 COMPLEMENT C3 196 mg/dL High 86-184 [facility] Comment on above: Performed By: #### P TT #### [facility] ([facility]) [address] [place] [address] VIR COMPLEMENT C4 42 mg/dL Normal 16-47 [facility] Comment on above: Performed By: #### P TT #### [facility] ([facility]) [address] [place] [address] VIR COMPREHENSIVE METABOLIC PANE Antoni 09-19-2024 Albumin [Mass/Vol] 3.4 g/dL Normal 3.2-5.3 [facility] Comment on above: Performed By: #### C MP #### [facility] ([facility]) [address] [place] [address] VIR ALP [Catalytic activity/Vol] 73 U/L Normal 39-130 [facility] Comment on above: Performed By: #### C MP #### [facility] ([facility]) [address] [place] [address] VIR ALT [Catalytic activity/Vol] 4 U/L Normal <=31 [facility] Comment on above: Performed By: #### C MP #### [facility] ([facility]) [address] [place] [address] VIR Anion gap [Moles/Vol] 17 mmol/L High 5-15 [facility] Comment on above: Performed By: #### C MP #### [facility] ([facility]) [address] [place] [address] VIR AST [Catalytic activity/Vol] 8 U/L Normal <=41 [facility] Comment on above: Performed By: #### C MP #### [facility] ([facility]) [address] [place] [address] VIR Bilirubin [Mass/Vol] 0.4 mg/dL Normal 0.3-1.2 [facility] Comment on above: Performed By: #### C MP #### [facility] ([facility]) [address] [place] [address] VIR Calcium [Mass/Vol] 9.3 mg/dL Normal 8.5-10.5 [facility] Comment on above: Performed By: #### C MP #### [facility] ([facility]) [address] [place] [address] VIR Chloride [Moles/Vol] 120 mmol/L High 98-109 [facility] Comment on above: Performed By: #### C MP #### [facility] ([facility]) [address] [place] [address] VIR CO2 [Moles/Vol] 14 mmol/L Low 22-32 [facility] Comment on above: Performed By: #### C MP #### [facility] ([facility]) [address] [place] [address] VIR Creatinine [Mass/Vol] 9.65 mg/dL High 0.40-1.00 [facility] Comment on above: Result Comment: METH OD TRACEABLE TO IDMS STANDARD Performed By: #### C MP #### [facility] ([facility]) [address] [place] [address] VIR GFR/1.73 sq M.predicted among non-blacks MDRD (S/P/Bld) [Vol rate/Area] 4 mL/min/{1.73_m2} Low >=60 [facility] Comment on above: Result Comment: Repo rted eGFR is based on the CKD-EPI 2020 equation that does not use a race coefficient. Performed By: #### C MP #### [facility] ([facility]) [address] [place] [address] VIR Glucose [Mass/Vol] 103 mg/dL High 65-99 [facility] Comment on above: Performed By: #### C MP #### [facility] ([facility]) [address] [place] [address] VIR Potassium [Moles/Vol] 4.6 mmol/L Normal 3.5-5.0 [facility] Comment on above: Performed By: #### C MP #### [facility] ([facility]) [address] [place] [address] VIR Protein [Mass/Vol] 6.8 g/dL Normal 6.0-8.0 [facility] Comment on above: Performed By: #### C MP #### [facility] ([facility]) [address] [place] [address] VIR Sodium [Moles/Vol] 151 mmol/L High 134-146 [facility] Comment on above: Performed By: #### C MP #### [facility] ([facility]) [address] [place] [address] VIR Urea nitrogen [Mass/Vol] 91 mg/dL High 5-23 [facility] Comment on above: Performed By: #### C MP #### [facility] ([facility]) [address] [place] [address] VIR Complement profile (C3 AND C 4)on 09-19-2024 Complement C3 [Mass/Vol] 196 mg/dL High 86 - 184 mg/dL [facility] Complement C4 [Mass/Vol] 42 mg/dL 16 - 47 mg/dL [facility] Comprehensive metabolic pane antoni 09-19-2024 Albumin [Mass/Vol] 3.4 g/dL 3.2 - 5.3 g/dL [facility] ALP [Catalytic activity/Vol] 73 U/L 39 - 130 U/L [facility] ALT No additional P-5'-P [Catalytic activity/Vol] 4 U/L NINF - 31 U/L [facility] Anion gap [Moles/Vol] 17 mmol/L High 5 - 15 mmol/L [facility] AST [Catalytic activity/Vol] 8 U/L NINF - 41 U/L [facility] Bilirubin [Mass/Vol] 0.4 mg/dL 0.3 - 1 .2 mg/dL [facility] Calcium [Mass/Vol] 9.3 mg/dL 8.5 - 10. 5 mg/dL [facility] Chloride [Moles/Vol] 120 mmol/L High 98 - 10 9 mmol/L [facility] CO2 [Moles/Vol] 14 mmol/L Low 22 - 32 mmol/L [facility] Creatinine [Mass/Vol] 9.65 mg/dL High 0.40 - 1.00 mg/dL [facility] EGFR Non-Race Dependent 4 Low - PINF P [facility] Glucose [Mass/Vol] 103 mg/dL High 65 - 99 mg/dL [facility] Interpretation and review of laboratory results Abnormal [facility] Potassium [Moles/Vol] 4.6 mmol/L 3.5 - 5.0 mmol/L [facility] Protein [Mass/Vol] 6.8 g/dL 6.0 - 8.0 g/dL [facility] Sodium [Moles/Vol] 151 mmol/L High 134 - 146 mmol/L [facility] Urea nitrogen [Mass/Vol] 91 mg/dL High 5 - 23 mg/dL [facility] ECG 12 leadOrdered By: Charley Cohen on 09-19-2024 [facility] ELECTROLYTE PANELon 09-20-19 25 Anion gap [Moles/Vol] 11 mmol/L Normal 5-15 [facility] Comment on above: Performed By: #### N UM #### [facility] ([facility]) [address] [place] [address] VIR Chloride [Moles/Vol] 119 mmol/L High 98-109 [facility] Comment on above: Performed By: #### N UM #### [facility] ([facility]) [address] [place] [address] VIR CO2 [Moles/Vol] 24 mmol/L Normal 22-32 [facility] Comment on above: Performed By: #### N UM #### [facility] ([facility]) [address] [place] [address] VIR Potassium [Moles/Vol] 4.3 mmol/L Normal 3.5-5.0 [facility] Comment on above: Performed By: #### N UM #### [facility] ([facility]) [address] [place] [address] VIR Sodium [Moles/Vol] 154 mmol/L High 134-146 [facility] Comment on above: Performed By: #### N UM #### [facility] ([facility]) [address] [place] [address] VIR Anion gap [Moles/Vol] 13 mmol/L Normal 5-15 [facility] Comment on above: Performed By: #### N UM #### [facility] ([facility]) [address] [place] [address] VIR Chloride [Moles/Vol] 118 mmol/L High 98-109 [facility] Comment on above: Performed By: #### N UM #### [facility] ([facility]) [address] [place] [address] VIR CO2 [Moles/Vol] 21 mmol/L Low 22-32 [facility] Comment on above: Performed By: #### N UM #### [facility] ([facility]) [address] [place] [address] VIR Potassium [Moles/Vol] 4.5 mmol/L Normal 3.5-5.0 [facility] Comment on above: Performed By: #### N UM #### [facility] ([facility]) [address] [place] [address] VIR Sodium [Moles/Vol] 152 mmol/L High 134-146 [facility] Comment on above: Performed By: #### N UM #### [facility] ([facility]) [address] [place] [address] VIR Anion gap [Moles/Vol] 15 mmol/L Normal 5-15 [facility] Comment on above: Performed By: #### P INR #### [facility] ([facility]) [address] [place] [address] VIR Chloride [Moles/Vol] 119 mmol/L High 98-109 [facility] Comment on above: Performed By: #### P INR #### [facility] ([facility]) [address] [place] [address] VIR CO2 [Moles/Vol] 22 mmol/L Normal 22-32 [facility] Comment on above: Performed By: #### P INR #### [facility] ([facility]) [address] [place] [address] VIR Potassium [Moles/Vol] 4.3 mmol/L Normal 3.5-5.0 [facility] Comment on above: Performed By: #### P INR #### [facility] ([facility]) [address] [place] [address] VIR Sodium [Moles/Vol] 156 mmol/L High 134-146 [facility] Comment on above: Performed By: #### P INR #### [facility] ([facility]) [address] [place] [address] VIR Electrolyte panelon 09-20-19 25 Anion gap [Moles/Vol] 11 mmol/L 5 - 15 mmol/L [facility] Chloride [Moles/Vol] 119 mmol/L High 98 - 10 9 mmol/L [facility] CO2 [Moles/Vol] 24 mmol/L 22 - 32 mmol/L [facility] Interpretation and review of laboratory results Abnormal [facility] Potassium [Moles/Vol] 4.3 mmol/L 3.5 - 5.0 mmol/L [facility] Sodium [Moles/Vol] 154 mmol/L High 134 - 146 mmol/L [facility] Anion gap [Moles/Vol] 13 mmol/L 5 - 15 mmol/L [facility] Chloride [Moles/Vol] 118 mmol/L High 98 - 10 9 mmol/L [facility] CO2 [Moles/Vol] 21 mmol/L Low 22 - 32 mmol/L [facility] Interpretation and review of laboratory results Abnormal [facility] Potassium [Moles/Vol] 4.5 mmol/L 3.5 - 5.0 mmol/L [facility] Sodium [Moles/Vol] 152 mmol/L High 134 - 146 mmol/L [facility] Anion gap [Moles/Vol] 15 mmol/L 5 - 15 mmol/L [facility] Chloride [Moles/Vol] 119 mmol/L High 98 - 10 9 mmol/L [facility] CO2 [Moles/Vol] 22 mmol/L 22 - 32 mmol/L [facility] Interpretation and review of laboratory results Abnormal [facility] Potassium [Moles/Vol] 4.3 mmol/L 3.5 - 5.0 mmol/L [facility] Sodium [Moles/Vol] 156 mmol/L High 134 - 146 mmol/L [facility] Extra Urineon 09-19-2024 Extra Tube Auto Resulted [facility] FERRITINon 09-19-2024 Ferritin [Mass/Vol] 130 ng/mL Normal 11-307 [facility] Comment on above: Performed By: #### P TT #### [facility]) [address] [place] [address] VIR FOLATEon 09-19-2024 FOLIC ACID 13.1 ng/mL Normal >5.8 [facility] Comment on above: Performed By: #### P TT #### [facility] ([facility]) [address] [place] [address] VIR Ferritinon 09-19-2024 Ferritin [Mass/Vol] 130 ng/mL 11 - 307 ng/mL [facility] Interpretation and review of laboratory results Normal [facility] Folateon 09-19-2024 Folate [Mass/Vol] 13.1 ng/mL 5.8 - PINF ng/mL [facility] Interpretation and review of laboratory results Normal [facility] GLOMERULAR BASEMENT MEMBRANE IGG ABon 09-19-2024 GBM IGG AB <^0.2 Normal <1.0 [facility] Comment on above: Performed By: #### L ACTS #### [facility] ([facility]) [address] [place] [address] VIR Gas panel (BldA)on Arterial patency Wrist artery --pre arterial puncture Pass [facility] Base deficit (Bld) [Moles/Vol] -8 mmol/L Low 0.0 - 2.0 mmol/L [facility] CO2 (Bld) [Partial pressure] 29.4 mm[Hg] Low [facility] HCO3 (Bld) [Moles/Vol] 16.8 mmol/L Low 22.0 - 26.0 mmol/L [facility] Interpretation and review of laboratory results Abnormal [facility] Oxygen (Bld) [Partial pressure] 78 mm[Hg] Low [facility] Oxygen therapy source and amount [CARE] Room Air [facility] pH (Bld) 7.364 [pH] 7.350 - 7.450 [facility] Specimen site Narrative Verena Saavedra [facility] Specimen type Nom (Spec) ARTERIAL [facility] HEMOGLOBIN A1Con 09-19-2024 Glucose [Mass/Vol] 108 mg/dL Normal [facility] Comment on above: Performed By: #### P INR #### [facility] ([facility]) [address] [place] [address] VIR HbA1c (Bld) [Mass fraction] 5.4 % Normal 4.4-5.6 [facility] Comment on above: Result Comment: ADA Guidelines Result HgbA1c Normal : less than 5.7 % Prediabetes : 5.7 % to 6.4 % Diabetes : > 6.4 % Use with caution in patients with abnormal hemoglobin variants as the half-life of red blood cells and in vivo glycation rates are affected. Performed By: #### P INR #### [facility] ([facility]) [address] [place] [address] VIR Hemoglobin A1con 09-19-2024 Average glucose Estimated from glycated hemoglobin (Bld) [Mass/Vol] 108 mg/dL [facility] HbA1c (Bld) [Mass fraction] 5.4 % 4.4 - 5.6 % [facility] IRON AND TIBCon 09-19-2024 Iron [Mass/Vol] 56 ug/dL Normal 50-170 [facility] Comment on above: Performed By: #### P TT #### [facility] ([facility]) [address] [place] [address] VIR IRON BINDING 309 ug/dL Normal 250-425 [facility] Comment on above: Performed By: #### P TT #### [facility]) [address] [place] [address] VIR IRON SATURATION 18 % SATURATION Normal 15-50 [facility] Comment on above: Performed By: #### P TT #### [facility]) [address] [place] [address] VIR Transferrin [Mass/Vol] 221 mg/dL Normal 168-336 [facility] Comment on above: Performed By: #### P TT #### [facility]) [address] [place] [address] VIR Iron and TIBCon 09-19-2024 Interpretation and review of laboratory results Normal [facility] Iron [Mass/Vol] 56 ug/dL 50 - 170 ug/dL [facility] Iron binding capacity [Mass/Vol] 309 ug/dL 250 - 425 ug/dL [facility] Iron saturation [Mass fraction] 18 [facility] Transferrin [Mass or moles/Vol] 221 mg/dL 168 - 336 mg/dL [facility] LACTATE W/ REFLEXon 09-20-19 25 LACTATE W/REFLEX 0.7 mmol/L Normal 0.4-2.0 [facility] Comment on above: Order Comment: Resul t did not trigger repeat Lactate, re-order if needed. Performed By: #### L ACTS #### [facility]) [address] [place] [address] VIR Laboratory - Chemistry and C hemistry - challengeon 09-19-2024 Creatinine (U) [Mass/Vol] 83.54 mg/dL [facility] Lactate w/ Reflexon 09-20-19 25 Interpretation and review of laboratory results Normal [facility] Lactate (P nadine) [Moles/Vol] 0.7 mmol/L 0.4 - 2.0 mmol/L [facility] MAGNESIUMon 09-19-2024 Magnesium [Mass/Vol] 2.4 mg/dL Normal 1.8-2.6 [facility] Comment on above: Performed By: #### P INR #### [facility]) [address] [place] [address] VIR MYELOPEROXIDASE ABon 025 MYELOPEROXIDASE AB <^0.2 Normal <1.0 [facility] Comment on above: Performed By: #### L ACTS #### [facility]) [address] [place] [address] VIR MYOGLOBIN, SERUMon 5 SERUM MYOGLOBIN 33.4 ng/mL Normal 14.3-65.8 [facility] Comment on above: Performed By: #### P INR #### [facility] ([facility]) [address] [place] [address] VIR Magnesiumon 09-19-2024 Magnesium [Mass/Vol] 2.4 mg/dL 1.8 - 2 .6 mg/dL [facility] Myoglobin, serumon Interpretation and review of laboratory results Normal [facility] Myoglobin [Mass/Vol] 33.4 ng/mL 14.3 - 65.8 ng/mL [facility] No Panel Informationon 09-19 Interpretation and review of laboratory results Normal [facility] Interpretation and review of laboratory results Abnormal [facility] PHOSPHORUSon 09-19-2024 Phosphate [Mass/Vol] 5.8 mg/dL High 2.4-4.9 [facility] Comment on above: Performed By: #### P INR #### [facility] ([facility]) [address] [place] [address] VIR POCT NURSING URINE MACROSCOP IC UAon 09-19-2024 BILIRUBIN SORIN Negative Normal Negative [facility] Comment on above: Performed By: #### N UM #### [facility] ([facility]) [address] [place] [address] VIR BLOOD/HGB SORIN Large Abnormal Negative [facility] Comment on above: Performed By: #### N UM #### [facility] ([facility]) [address] [place] [address] VIR GLUCOSE SORIN Negative Normal Negative [facility] Comment on above: Performed By: #### N UM #### [facility] ([facility]) [address] [place] [address] VIR KETONES SORIN Negative Normal Negative [facility] Comment on above: Performed By: #### N UM #### [facility] ([facility]) [address] [place] [address] VIR LEUKOCYTE ESTERASE SORIN Negative Normal Negative [facility] Comment on above: Performed By: #### N UM #### [facility] ([facility]) [address] [place] [address] VIR NITRITE SORIN Negative Normal Negative [facility] Comment on above: Performed By: #### N UM #### [facility] ([facility]) [address] [place] [address] VIR PH SORIN 5.5 Normal 5.0, 6.0, 6.5, 7.0, 7.5, 8.0, 8.5, 5.5 [facility] Comment on above: Performed By: #### N UM #### [facility] ([facility]) [address] [place] [address] VIR PROTEIN SORIN 100 mg/dL Abnormal Negative [facility] Comment on above: Performed By: #### N UM #### [facility] ([facility]) [address] [facility] [place] [address] VIR SPECIFIC GRAVITY SROIN 1.020 Normal 1.010, 1.015, 1.020, 1.025 [facility] Comment on above: Performed By: #### N UM #### [facility] ([facility]) [address] [facility] [facility] [address] VIR UROBILINOGEN SORIN 0.2 E.U./dL Normal 0.2 E.U./dL, 1.0 E.U./dL [facility] Comment on above: Performed By: #### N UM #### [facility] ([facility]) [address] [place] [address] VIR POCT Nursing Urine Macroscop ic UAon 09-19-2024 Bilirubin Ql (U) Negative Negative [facility] Glucose [Mass/Vol] Negative Negative [facility] Hemoglobin Ql (U) Large Abnormal Negative [facility] Interpretation and review of laboratory results Abnormal [facility] Ketones (U) [Mass/Vol] Negative Negative [facility] Leukocyte esterase Test strip Ql (U) Negative Negative [facility] Nitrite Ql (U) Negative Negative [facility] pH (U) 5.5 [pH] 5.0, 6.0, 6.5, 7.0, 7.5, 8.0, 8.5, 5.5 [facility] Protein Ql (U) 100 mg/dL Abnormal Negative [facility] Specific gravity (U) [Rel density] 1.020 1.010, 1.015, 1.020, 1.025 [facility] Urobilinogen Qn (U) [id number] {Mirza'U}/dL 0.2 E.U./dL, 1.0 E.U./dL [facility] PROCALCITONINon 09-19-2024 PROCALCITONIN 0.12 ng/mL High <0.05 [facility] Comment on above: Order Comment: <0.50 ng/mL - Low risk of severe sepsis and/or septic shock.<2.00 ng/mL - Recommend retesting within 6-24 hours.>2.00 ng/mL - High risk of sepsis and/or septic shock. Performed By: #### P TT #### [facility] ([facility]) [address] [place] [address] VIR PROTEIN CREAT RATIOon 2024 U/PRO/SPACE OFFICER RATIO CALC 1.62 High <=0.20 [facility] Comment on above: Order Comment: Nephr otic Syndrome is associated with ratios >3.5 Performed By: #### P INR #### [facility] ([facility]) [address] [place] [address] VIR URINE PROTEIN, RANDOM (MG/L) 1350 mg/L High <120 [facility] Comment on above: Order Comment: Nephr otic Syndrome is associated with ratios >3.5 Performed By: #### P INR #### [facility] ([facility]) [address] [place] [address] VIR PROTEINASE 3 AB PR3on 2024 PROTEINASE 3 IGG AB <^0.2 Normal <1.0 [facility] Comment on above: Performed By: #### L ACTS #### [facility] ([facility]) [address] [place] [address] VIR PROTIME AND INRon 09-19-2024 INR 1.2 Normal 0.9-1.2 [facility] Comment on above: Performed By: #### P INR #### [facility] ([facility]) [address] [place] [address] VIR PT Coag (PPP) [Time] 14.0 s High 9.8-13.2 [facility] Comment on above: Performed By: #### P INR #### [facility] ([facility]) [address] [place] [address] VIR Phosphoruson 09-19-2024 Phosphate [Mass/Vol] 5.8 mg/dL High 2.4 - 4 .9 mg/dL [facility] Procalcitoninon 09-19-2024 Procalcitonin IA [Mass/Vol] 0.12 ng/mL High NINF - 0.05 ng/mL [facility] Protein creat ratioon 2024 Interpretation and review of laboratory results Abnormal [facility] Protein (U) [Mass/Vol] 1350 mg/L High NINF - 120 mg/L [facility] Protein/Creatinine (U) [Ratio] 1.62 High NINF - 0.20 [facility] Protime & INRon 09-19-2024 INR Coag (Platelet poor plasma or blood) [Relative time] 1.2 0.9 - 1.2 [facility] Interpretation and review of laboratory results Abnormal [facility] PT Coag (PPP) [Time] 14 s High [facility] SODIUM, URINE, RANDOMon 05 Sodium (U) [Moles/Vol] 69 mmol/L Normal [facility] Comment on above: Performed By: #### U LUDMILA #### [facility] ([facility]) [address] [place] [address] VIR Sodium, urine, randomon Sodium (U) [Moles/Vol] 69 mmol/L [facility] THYROID PROFILE INCLUDES TSH FT4on 09-19-2024 Free T4 [Mass/Vol] 0.86 ng/dL Normal 0.61-1.60 [facility] Comment on above: Performed By: #### P TT #### [facility] ([facility]) [address] [place] [address] VIR TSH 2.80 uIU/mL Normal 0.49-4.67 [facility] Comment on above: Performed By: #### P TT #### [facility] ([facility]) [address] [place] [address] VIR TROP I, HIGH SENSITIVITY 1 H OURon 09-19-2024 TROPONIN I, HIGH SENSITIVITY 10 ng/L Normal <16 [facility] Comment on above: Performed By: #### T NIHS1 #### [facility] ([facility]) [address] [place] [address] VIR TROPONIN I, HIGH SENSITIVITY 0 HOURon 09-19-2024 TROPONIN I, HIGH SENSITIVITY 11 ng/L Normal <16 [facility] Comment on above: Performed By: #### P INR #### [facility] ([facility]) [address] [place] [address] VIR Thyroid profile includes TSH FT4on 09-19-2024 Free T4 [Mass/Vol] 0.86 ng/dL 0.61 - 1.60 ng/dL [facility] TSH Qn 2.8 m[IU]/L [facility] Troponin I, High Sensitivity 0 Houron 09-19-2024 Interpretation and review of laboratory results Normal [facility] Troponin I.cardiac High sensitivity method [Mass/Vol] 11 ng/L NINF - 16 ng/L [facility] Troponin I, High Sensitivity 1 Houron 09-19-2024 Interpretation and review of laboratory results Normal [facility] Troponin I.cardiac High sensitivity method [Mass/Vol] 10 ng/L NINF - 16 ng/L [facility] URINALYSISon 09-19-2024 Bilirubin Ql (U) Negative Normal Negative [facility] Comment on above: Order Comment: Urine received without preservative. Delays in transport may affect results. Interpret with caution. A clinical correlation is recommended. Performed By: #### P TT #### [facility] ([facility]) [address] [place] [address] VIR BLOOD/HGB Moderate Abnormal Negative [facility] Comment on above: Order Comment: Urine received without preservative. Delays in transport may affect results. Interpret with caution. A clinical correlation is recommended. Performed By: #### P TT #### [facility] ([facility]) [address] [place] [address] VIR Color (U) Colorless Normal Yellow, Colorless [facility] Comment on above: Order Comment: Urine received without preservative. Delays in transport may affect results. Interpret with caution. A clinical correlation is recommended. Performed By: #### P TT #### [facility] ([facility]) [address] [place] [address] VIR Glucose Ql (U) Negative Normal Negative [facility] Comment on above: Order Comment: Urine received without preservative. Delays in transport may affect results. Interpret with caution. A clinical correlation is recommended. Performed By: #### P TT #### [facility] ([facility]) [address] [place], [place] [address], [place] [address] VIR Ketones Ql (U) Negative Normal Negative [facility] Comment on above: Order Comment: Urine received without preservative. Delays in transport may affect results. Interpret with caution. A clinical correlation is recommended. Performed By: #### P TT #### [facility] ([facility]) [address] [place] [address] VIR Leukocyte esterase Test strip Ql (U) Small Abnormal Negative [facility] Comment on above: Order Comment: Urine received without preservative. Delays in transport may affect results. Interpret with caution. A clinical correlation is recommended. Performed By: #### P TT #### [facility] ([facility]) [address] [place] [address] VIR MUCOUS Present Abnormal None [facility] Comment on above: Order Comment: Urine received without preservative. Delays in transport may affect results. Interpret with caution. A clinical correlation is recommended. Performed By: #### P TT #### [facility] ([facility]) [address] [place] [address] VIR Nitrite Ql (U) Negative Normal Negative [facility] Comment on above: Order Comment: Urine received without preservative. Delays in transport may affect results. Interpret with caution. A clinical correlation is recommended. Performed By: #### P TT #### [facility] ([facility]) [address] [place], [place] [address] VIR PH,URINE 5.5 Normal 5.0-8.5 [facility] Comment on above: Order Comment: Urine received without preservative. Delays in transport may affect results. Interpret with caution. A clinical correlation is recommended. Performed By: #### P TT #### [facility] ([facility]) [address] [place] [address] VIR Protein Ql (U) 70 mg/dL Abnormal Negative [facility] Comment on above: Order Comment: Urine received without preservative. Delays in transport may affect results. Interpret with caution. A clinical correlation is recommended. Performed By: #### P TT #### [facility] ([facility]) [address] [place] [address] VIR R.B.CELLS 17 High 0-5 [facility] Comment on above: Order Comment: Urine received without preservative. Delays in transport may affect results. Interpret with caution. A clinical correlation is recommended. Performed By: #### P TT #### [facility] ([facility]) [address] [place] [address] VIR Specific gravity (U) [Rel density] 1.013 Normal 1.003-1.03 5 [facility] Comment on above: Order Comment: Urine received without preservative. Delays in transport may affect results. Interpret with caution. A clinical correlation is recommended. Performed By: #### P TT #### [facility] ([facility]) [address] [place] [address] VIR SQUAMOUS EPITHELIUM 1 Normal 0-5 [facility] Comment on above: Order Comment: Urine received without preservative. Delays in transport may affect results. Interpret with caution. A clinical correlation is recommended. Performed By: #### P TT #### [facility] ([facility]) [address] [place] [address] VIR TURBIDITY Hazy Abnormal Clear [facility] Comment on above: Order Comment: Urine received without preservative. Delays in transport may affect results. Interpret with caution. A clinical correlation is recommended. Performed By: #### P TT #### [facility] ([facility]) [address] [place] [address] VIR UROBILINOGEN <1.1 eu/dL Normal <1.1 eu/dL [facility] Comment on above: Order Comment: Urine received without preservative. Delays in transport may affect results. Interpret with caution. A clinical correlation is recommended. Performed By: #### P TT #### [facility] ([facility]) [address] [place] [address] VIR W.B.CELLS 39 High 0-5 [facility] Comment on above: Order Comment: Urine received without preservative. Delays in transport may affect results. Interpret with caution. A clinical correlation is recommended. Performed By: #### P TT #### [facility] ([facility]) [address] [place] [address] VIR URINE CREATININE,RANDOMon URINE CREATININE,RDM 83.54 mg/dL Normal [facility] Comment on above: Performed By: #### P INR #### [facility] ([facility]) [address] [place] [address] VIR Order Comment: Nephr otic Syndrome is [...] Varner MD on 09/19/2024 6:46 AM Normal [facility] [place] [facility] [place] RetroperitoneumOrdered By : Mao Varner on 09-19-2024 [facility] Work Phone: UrinalysisOrdered By: Aayush Ewing on 09-19-2024 Bilirubin Ql (U) Negative Negative [facility] Color (U) Colorless Yellow, Colorless [facility] Epithelial cells Auto (Urine sed) [#/Area] 1 0 - 5 [facility] Glucose (U) [Mass/Vol] Negative Negative [facility] Hemoglobin Auto test strip Ql (U) Moderate Abnormal Negative [facility] Interpretation and review of laboratory results Abnormal [facility] Ketones (U) [Mass/Vol] Negative Negative [facility] Leukocyte esterase Auto test strip Ql (U) Small Abnormal Negative [facility] Mucus Ql (Urine sed) Present Abnormal None [facility] Nitrite Auto test strip Ql (U) Negative Negative [facility] pH (U) 5.5 [pH] 5.0 - 8.5 [facility] Protein (U) [Mass/Vol] 70 mg/dL Abnormal Negative Pr [facility] RBC Auto (Urine sed) [#/Area] 17 High 0 - 5 [facility] Specific gravity Refractometry automated (U) [Rel density] 1.013 1.003 - 1.035 [facility] Turbidity Ql (U) Hazy Abnormal [facility] Urobilinogen Qn (U) {Mirza'U}/dL <1.1 eu/dL P [facility] WBC Auto (Urine sed) [#/Area] 39 High 0 - 5 [facility] VITAMIN B12on 09-19-2024 Cobalamin (Vitamin B12) [Mass/Vol] 517 pg/mL Normal 180-914 [facility] Comment on above: Performed By: #### P TT #### [facility] (TT) [address] [place] [address] VIR Vitamin B12on 09-19-2024 Cobalamin (Vitamin B12) [Mass/Vol] 517 pg/mL 180 - 914 pg/mL [facility] Interpretation and review of laboratory results Normal [facility] ALL CBC WITH AUTO DIFFon BASOPHILS ABSOLUTE AUTO 0.1 N [facility] Basophils/100 WBC (Bld) 0.7 % 0.2 - 2.0 % [facility] Eosinophils/100 WBC (Bld) 2.3 % 0.9 - 7.0 % [facility] Erythrocyte distribution width (RBC) [Ratio] 14.9 % 11.0 - 15.0 % [facility] Hematocrit (Bld) [Volume fraction] 37.9 % 36.0 - 48.0 % [facility] Hemoglobin (Bld) [Mass/Vol] 11.7 g/dL Low 12.0 - 16.0 g/dL [facility] IMMATURE GRANULOCYTES ABS AUTO 0.05 High [facility] Immature granulocytes/100 WBC (Bld) 0.4 % 0.0 - 0.5 % [facility] Interpretation and review of laboratory results Abnormal [facility] LYMPHOCYTES ABSOLUTE AUTO 0.8 Low [facility] Lymphocytes/100 WBC (Bld) 6.3 % Low 20.5 - 60.0 % [facility] MCH (RBC) [Entitic mass] 27.1 pg 26. 7 - 34.0 pg [facility] MCHC (RBC) [Mass/Vol] 30.9 g/dL 29.9 - 35.2 g/dL [facility] MCV (RBC) [Entitic vol] 87.7 fL 81.0 - 99.0 fL [facility] MONOCYTES ABSOLUTE AUTO 1 High N [facility] Monocytes/100 WBC (Bld) 7.5 % 1.7 - 12.0 % [facility] NEUTROPHILS ABSOLUTE AUTO 10.7 High [facility] Neutrophils/100 WBC (Bld) 82.8 % High 43.0 - 75.0 % [facility] Platelet mean volume (Bld) [Entitic vol] 11.5 fL 9.5 - 13.5 fL [facility] EO # 0.3 [facility]T 218 [facility] RBC 4.32 [facility] WBC 12.9 High [facility] CBC AND AUTO DIFFon 09-02-19 25 ABSOLUTE BASOPHIL 0.1 X10E9/L Normal 0.0-0.2 [facility] Comment on above: Performed By: #### C BCA, CMP, 2156-6, 65149-8, 78744-4, 10562-2, PINR, 60642-1, 2639-3 #### [facility] ([id number]) [address] [place] [address] 64142 ABSOLUTE NEUTROPHIL 7.5 X10E9/L High 1.5-6.[address] [facility] Comment on above: Performed By: #### C BCA, CMP, 2156-, 88658-0, 64655-5, 59408-4, PINR, 32335-1, 2639-3 #### [facility] ([id number]) [address] [place] [address] 59576 Basophils/100 WBC (Bld) 0.7 % Normal [facility] Comment on above: Performed By: #### C BCA, CMP, 2156-, 99026-7, 70794-2, 86877-7, PINR, 37525-1, 2639-3 #### [facility] ([id number]) [address] [place] [address] 52199 Eosinophils (Bld) [#/Vol] 0.1 10*3/uL Normal 0.0-0.4 [facility] Comment on above: Performed By: #### C BCA, CMP, 2156-6, 73774-5, 35839-9, 71208-1, PINR, 45739-3, 2639-3 #### [facility] ([id number]) [address] [place] [address] 82473 Eosinophils/100 WBC (Bld) 1.3 % Normal [facility] Comment on above: Performed By: #### C BCA, CMP, 2156-6, 12965-6, 55594-6, 07080-1, PINR, 79064-1, 2639-3 #### [facility] ([id number]) [address] [place] [address] Erythrocyte distribution width (RBC) [Ratio] 15.4 % High 11.5-15.0 [facility] Comment on above: Performed By: #### C BCA, CMP, 2156-6, 55219-6, 62936-3, 73090-8, PINR, 68370-0, 2639-3 #### [facility] ([id number]) [address] [place] [address] 06100 Hematocrit (Bld) [Volume fraction] 36.0 % Normal 35-47 [facility] Comment on above: Performed By: #### C BCA, CMP, 2156-10, 99819-8, 61898-6, 45500-6, PINR, 30388-3, 2639-3 #### [facility] ([id number]) [address] [place] [address] 68542 Hemoglobin (Bld) [Mass/Vol] 12.2 g/dL Normal 11.7-15.5 [facility] Comment on above: Performed By: #### C BCA, CMP, 2156-10, 98586-5, 70704-6, 19373-2, PINR, 86833-8, 2639-3 #### [facility] ([id number]) [address] [place] [address] 55172 Lymphocytes (Bld) [#/Vol] 0.9 10*3/uL Low 1.0-3.5 [facility] Comment on above: Performed By: #### C BCA, CMP, 2156-6, 47784-6, 95631-3, 85690-1, PINR, 66087-0, 2639-3 #### [facility] ([id number]) [address] [place] [address] 63107 Lymphocytes/100 WBC (Bld) 9.4 % Normal [facility] Comment on above: Performed By: #### C BCA, CMP, 2156-10, 16217-3, 57565-7, 00481-5, PINR, 47403-0, 2639-3 #### [facility] ([id number]) [address] [place] [address] 60101 MCH (RBC) [Entitic mass] 28.0 pg Normal 27-34 [facility] Comment on above: Performed By: #### C BCA, CMP, 2156-6, 11957-1, 24826-6, 44865-2, PINR, 59334-1, 2639-3 #### [facility] ([id number]) [address] [place] [address] 97506 MCHC (RBC) [Mass/Vol] 34.0 g/dL Normal 32-36 [facility] Comment on above: Performed By: #### C BCA, CMP, 2156-6, 51995-3, 01616-0, 47088-4, PINR, 98354-2, 2639-3 #### [facility] ([id number]) [address] [place] [address] 41669 MCV (RBC) [Entitic vol] 82 fL Normal 80-100 [facility] Comment on above: Performed By: #### C BCA, CMP, 2156-6, 80047-9, 87429-1, 85359-8, PINR, 34597-5, 2639-3 #### [facility] ([id number]) [address] [place] [address] 63254 Monocytes (Bld) [#/Vol] 1.4 10*3/uL High 0-0.9 [facility] Comment on above: Performed By: #### C BCA, CMP, 2156-6, 34507-1, 75529-9, 18665-9, PINR, 09234-7, 2639-3 #### [facility] ([id number]) [address] [place] [address] 99024 Monocytes/100 WBC (Bld) 13.8 % Normal P [facility] Comment on above: Performed By: #### C BCA, CMP, 2156-6, 35301-5, 97142-5, 62945-4, PINR, 56987-9, 2639-3 #### [facility] ([id number]) [address] [place] [address] 53242 Neutrophils/100 WBC (Bld) 74.8 % Normal [facility] Comment on above: Performed By: #### C BCA, CMP, 2156-6, 08823-1, 38228-2, 18450-3, PINR, 22308-6, 2639-3 #### [facility] ([id number]) [address] [place] [address] 53545 Platelet mean volume (Bld) [Entitic vol] 9.4 fL Normal 7-12 [facility] Comment on above: Performed By: #### C BCA, CMP, 2156-6, 41987-9, 61052-1, 61110-6, PINR, 59506-9, 2639-3 #### [facility] ([id number]) [address] [place] [address] 79302 Platelets (Bld) [#/Vol] 215 10*3/uL Normal 150-450 [facility] Comment on above: Performed By: #### C BCA, CMP, 2156-6, 69850-6, 85994-3, 92894-6, PINR, 87381-0, 2639-3 #### [facility] ([id number]) [address] [place] [address] 49865 RBC COUNT 4.36 X10E12/L Normal 3.80-5.20 [facility] Comment on above: Performed By: #### C BCA, CMP, 2156-6, 91649-0, 74875-9, 34347-6, PINR, 49402-6, 2639-3 #### [facility] ([id number]) [address] [place] [address] 17000 WBC (Bld) [#/Vol] 10.1 10*3/uL Normal 4.0-11.0 [facility] Comment on above: Performed By: #### C BCA, CMP, 2157-6, 68483-9, 64810-4, 05814-3, PINR, 93905-7, 2639-3 #### [facility] ([id number]) [address] [place] [address] 17562 CK [Catalytic activity/Vol]o n 09-01-2024 CPK 188 U/L High 24-170 [facility] Comment on above: Performed By: #### C BCA, CMP, 7-6, 81976-8, 46917-2, 40357-7, PINR, 49446-4, 2639-3 #### [facility] ([id number]) [address] [place] [address] 88100 COMPREHENSIVE METABOLIC PANE Antoni 09-01-2024 Albumin [Mass/Vol] 2.6 g/dL Low 3.2-5.3 [facility] Comment on above: Performed By: #### C BCA, CMP, 7-6, 82541-2, 32085-2, 54802-1, PINR, 21518-6, 2639-3 #### [facility] ([id number]) [address] [place] [address] 05692 ALP [Catalytic activity/Vol] 101 U/L Normal 39-130 [facility] Comment on above: Performed By: #### C BCA, CMP, 7-6, 92137-6, 25788-0, 74130-1, PINR, 23008-1, 2639-3 #### [facility] ([id number]) [address] [place] [address] 49122 ALT [Catalytic activity/Vol] 34 U/L High 0-31 [facility] Comment on above: Performed By: #### C BCA, CMP, 7-6, 27652-4, 10196-3, 26252-1, PINR, 50661-7, 2639-3 #### [facility] ([id number]) [address] [place] [address] 63224 Anion gap [Moles/Vol] 11 mmol/L Normal 5-15 [facility] Comment on above: Performed By: #### C BCA, CMP, 2156-6, 86832-3, 55844-1, 84785-1, PINR, 38265-1, 2639-3 #### [facility] ([id number]) [address] [place] [address] 60542 AST [Catalytic activity/Vol] 32 U/L Normal 0-41 [facility] Comment on above: Performed By: #### C BCA, CMP, 2156-6, 79347-2, 61779-7, 34301-5, PINR, 49166-7, 2639-3 #### [facility] ([id number]) [address] [place] [address] 40089 Bilirubin [Mass/Vol] 0.5 mg/dL Normal 0.3-1.[address] [facility] Comment on above: Performed By: #### C BCA, CMP, 2156-6, 27117-7, 68882-2, 78747-7, PINR, 44497-7, 2639-3 #### [facility] ([id number]) [address] [place] [address] 85695 Calcium [Mass/Vol] 8.5 mg/dL Normal 8.5-10.5 [facility] Comment on above: Performed By: #### C BCA, CMP, 2156-6, 08495-5, 56097-7, 84071-0, PINR, 61715-9, 2639-3 #### [facility] ([id number]) [address] [place] [address] [place] [address] Chloride [Moles/Vol] 106 mmol/L Normal 98-[address] [facility] Comment on above: Performed By: #### C BCA, CMP, 2157-6, 23759-6, 66496-5, 84976-4, PINR, 27330-9, 2639-3 #### [facility] ([id number]) [address] [place] [address] 33349 CO2 [Moles/Vol] 24 mmol/L Normal 22-32 [facility] Comment on above: Performed By: #### C BCA, CMP, 2156-6, 68624-7, 11984-2, 81298-5, PINR, 17455-8, 2639-3 #### [facility] ([id number]) [address] [place] [address] 57479 Creatinine [Mass/Vol] 0.87 mg/dL Normal 0.40-1.00 [facility] Comment on above: Result Comment: METH OD TRACEABLE TO IDMS STANDARD Performed By: #### C BCA, CMP, 2156-6, 69976-4, 19757-5, 67025-7, PINR, 55710-1, 2639-3 #### [facility] ([id number]) [address] [place] [address] 67022 GFR/1.73 sq M.predicted among non-blacks MDRD (S/P/Bld) [Vol rate/Area] 78 mL/min/{1.73_m2} Normal >59 [facility] Comment on above: Result Comment: Reported eGFR is based on the CKD-EPI 2020 equation that does not use a race coefficient. Performed By: #### C BCA, CMP, 2157-6, 35702-3, 26445-2, 79031-9, PINR, 72604-1, 2639-3 #### [facility] ([id number]) [address] [place] [address] 11496 Glucose [Mass/Vol] 108 mg/dL High 65-99 [facility] Comment on above: Performed By: #### C BCA, CMP, 7-6, 87136-0, 49557-0, 59651-7, PINR, 98623-2, 2639-3 #### [facility] ([id number]) [address] [place] [address] 21538 Potassium [Moles/Vol] 4.1 mmol/L Normal 3.5-5.0 [facility] Comment on above: Performed By: #### C BCA, CMP, 2156-6, 18050-9, 25556-3, 41633-0, PINR, 59758-4, 2639-3 #### [facility] ([id number]) [address] [place] [address] 58674 Protein [Mass/Vol] 6.6 g/dL Normal 6.0-8.0 [facility] Comment on above: Performed By: #### C BCA, CMP, 2156-6, 58989-3, 76909-8, 01930-0, PINR, 02249-0, 2639-3 #### [facility] ([id number]) [address] [place] [address] 55854 Sodium [Moles/Vol] 141 mmol/L Normal 134-146 [facility] Comment on above: Performed By: #### C BCA, CMP, 2156-6, 54159-6, 30453-5, 69592-8, PINR, 32037-7, 2639-3 #### [facility] ([id number]) [address] [place] [address] 79717 Urea nitrogen [Mass/Vol] 12 mg/dL Normal 5-23 [facility] Comment on above: Performed By: #### C BCA, CMP, 7-6, 72669-1, 24288-6, 69335-2, PINR, 07239-5, 2639-3 #### [facility] ([id number]) [address] [place] [address] 42307 MAGNESIUMon 09-01-2024 Magnesium [Mass/Vol] 2.0 mg/dL Normal 1.8-2.[address] [facility] Comment on above: Performed By: #### C BCA, CMP, 7-6, 60148-6, 14238-5, 28268-2, PINR, 91442-6, 2639-3 #### [facility] ([id number]) [address] [place] [address] 10660 Myoglobin [Mass/Vol]on 09-01 SERUM MYOGLOBIN 53.7 ng/mL Normal 14.3-65.8 [facility] Comment on above: Performed By: #### C BCA, CMP, 2156-6, 51145-2, 67927-5, 23033-8, PINR, 57712-7, 2639-3 #### [facility] ([id number]) [address] [place] [address] 46288 CBC AND AUTO DIFFon 09-01-19 25 ABSOLUTE BASOPHIL 0.1 X10E9/L Normal 0.0-0.2 [facility] Comment on above: Performed By: #### C BCA, CMP, 2156-6, 57750-2, 92019-7, 11479-5, PINR, 44755-8, 2639-3 #### [facility] ([id number]) [address] [place] [address] [place] [address] ABSOLUTE NEUTROPHIL 7.4 X10E9/L High 1.5-6.[address] [facility] Comment on above: Performed By: #### C BCA, CMP, 2156-6, 21076-5, 37226-7, 19635-8, PINR, 27774-9, 2639-3 #### [facility] ([id number]) [address] [place] [address] 19117 Basophils/100 WBC (Bld) 0.9 % Normal [facility] Comment on above: Performed By: #### C BCA, CMP, 7-6, 07316-5, 28666-2, 32948-9, PINR, 94926-4, 2639-3 #### [facility] ([id number]) [address] [place] [address] 41025 Eosinophils (Bld) [#/Vol] 0.1 10*3/uL Normal 0.0-0.4 [facility] Comment on above: Performed By: #### C BCA, CMP, 2156-6, 82782-0, 22540-8, 72959-6, PINR, 14482-2, 2639-3 #### [facility] ([id number]) [address] [place] [address] 99052 Eosinophils/100 WBC (Bld) 1.4 % Normal [facility] Comment on above: Performed By: #### C BCA, CMP, 2156-6, 77517-8, 65946-6, 23231-7, PINR, 27725-1, 2639-3 #### [facility] ([id number]) [address] [place] [address] [place] [address] Erythrocyte distribution width (RBC) [Ratio] 15.8 % High 11.5-15.0 [facility] Comment on above: Performed By: #### C BCA, CMP, 2156-6, 97974-5, 06651-5, 62376-2, PINR, 17466-3, 2639-3 #### [facility] ([id number]) [address] [place] [address] 60466 Hematocrit (Bld) [Volume fraction] 35.7 % Normal 35-47 [facility] Comment on above: Performed By: #### C BCA, CMP, 2156-6, 84243-3, 18370-6, 12228-0, PINR, 89499-9, 2639-3 #### [facility] ([id number]) [address] [place] [address] 80956 Hemoglobin (Bld) [Mass/Vol] 12.1 g/dL Normal 11.7-15.5 [facility] Comment on above: Performed By: #### C BCA, CMP, 2156-6, 07897-1, 47067-6, 70414-6, PINR, 94522-0, 2639-3 #### [facility] ([id number]) [address] [place] [address] 07288 Lymphocytes (Bld) [#/Vol] 0.8 10*3/uL Low 1.0-3.5 [facility] Comment on above: Performed By: #### C BCA, CMP, 2156-6, 92679-3, 03643-2, 76149-4, PINR, 11092-9, 2639-3 #### [facility] ([id number]) [address] [place] [address] 22327 Lymphocytes/100 WBC (Bld) 8.5 % Normal [facility] Comment on above: Performed By: #### C BCA, CMP, 2156-6, 10222-7, 09364-8, 18897-0, PINR, 06562-8, 2639-3 #### [facility] ([id number]) [address] [place] [address] 98555 MCH (RBC) [Entitic mass] 28.1 pg Normal 27-34 [facility] Comment on above: Performed By: #### C BCA, CMP, 2156-6, 43056-7, 39883-9, 26641-2, PINR, 17313-3, 2639-3 #### [facility] ([id number]) [address] [place] [address] 42914 MCHC (RBC) [Mass/Vol] 33.9 g/dL Normal 32-36 [facility] Comment on above: Performed By: #### C BCA, CMP, 2156-6, 62208-8, 21159-5, 05411-9, PINR, 44388-9, 2639-3 #### [facility] ([id number]) [address] [place] [address] 40153 MCV (RBC) [Entitic vol] 83 fL Normal 80-100 [facility] Comment on above: Performed By: #### C BCA, CMP, 2156-6, 57810-4, 53810-2, 36039-5, PINR, 84745-0, 2639-3 #### [facility] ([id number]) [address] [place] [address] 58486 Monocytes (Bld) [#/Vol] 1.4 10*3/uL High 0-0.9 [facility] Comment on above: Performed By: #### C BCA, CMP, 2156-6, 95420-8, 91375-4, 61164-3, PINR, 24480-0, 2639-3 #### [facility] ([id number]) [address] [place] [address] 39263 Monocytes/100 WBC (Bld) 14.1 % Normal [facility] Comment on above: Performed By: #### C BCA, CMP, 2156-6, 75179-7, 13952-5, 78886-6, PINR, 87729-3, 2639-3 #### [facility] ([id number]) [address] [place] [address] 18357 Neutrophils/100 WBC (Bld) 75.1 % Normal [facility] Comment on above: Performed By: #### C BCA, CMP, 2156-6, 80222-8, 77857-0, 84532-6, PINR, 87241-0, 2639-3 #### [facility] ([id number]) [address] [place] [address] 95135 Platelet mean volume (Bld) [Entitic vol] 10.0 fL Normal 7-12 [facility] Comment on above: Performed By: #### C BCA, CMP, 7-6, 85713-9, 28576-1, 17568-7, PINR, 00054-8, 2639-3 #### [facility] ([id number]) [address] [place] [address] 20023 Platelets (Bld) [#/Vol] 206 10*3/uL Normal 150-450 [facility] Comment on above: Performed By: #### C BCA, CMP, 2156-6, 97540-9, 06131-2, 49830-9, PINR, 79178-5, 2639-3 #### [facility] ([id number]) [address] [place] [address] 06764 RBC COUNT 4.31 X10E12/L Normal 3.80-5.20 [facility] Comment on above: Performed By: #### C BCA, CMP, 2156-6, 24116-0, 68660-4, 05881-5, PINR, 11989-1, 2639-3 #### [facility] ([id number]) [address] [place] [address] 63531 WBC (Bld) [#/Vol] 9.9 10*3/uL Normal 4.0-11.0 [facility] Comment on above: Performed By: #### C BCA, CMP, 2156-6, 61546-2, 94441-8, 28529-4, PINR, 08721-1, 2639-3 #### [facility] ([id number]) [address] [place] [address] 93354 CK [Catalytic activity/Vol]o n 08-31-2024 CPK 324 U/L High 24-170 [facility] Comment on above: Performed By: #### C BCA, CMP, 2156-6, 15974-3, 91902-1, 82134-9, PINR, 45456-4, 2639-3 #### [facility] ([id number]) [address] [place] [address] 73705 CPK 405 U/L High 24-170 [facility] Comment on above: Performed By: #### C BCA, CMP, 2157-6, 97377-9, 63861-4, 08589-7, PINR, 65284-8, 2639-3 #### [facility] ([id number]) [address] [place] [address] 56672 COMPREHENSIVE METABOLIC PANE Antoni 08-31-2024 Albumin [Mass/Vol] 2.5 g/dL Low 3.2-5.3 [facility] Comment on above: Performed By: #### C BCA, CMP, 2157-6, 29676-1, 58530-0, 42393-0, PINR, 11476-7, 2639-3 #### [facility] ([id number]) [address] [place] [address]308 ALP [Catalytic activity/Vol] 75 U/L Normal 39-130 [facility] Comment on above: Performed By: #### C BCA, CMP, 2157-6, 74725-5, 01989-6, 57581-8, PINR, 82149-9, 2639-3 #### [facility] ([id number]) [address] [place] [address] [place] [address] ALT [Catalytic activity/Vol] 31 U/L Normal 0-31 [facility] Comment on above: Performed By: #### C BCA, CMP, 2157-6, 98309-3, 00988-6, 67993-0, PINR, 37065-5, 2639-3 #### [facility] ([id number]) [address] [place] [address] 28063 Anion gap [Moles/Vol] 9 mmol/L Normal 5-15 [facility] Comment on above: Performed By: #### C BCA, CMP, 2156-6, 90434-8, 22267-9, 72683-3, PINR, 67588-1, 2639-3 #### [facility] ([id number]) [address] [place] [address] 92427 AST [Catalytic activity/Vol] 36 U/L Normal 0-41 [facility] Comment on above: Performed By: #### C BCA, CMP, 2156-, 70422-0, 78842-1, 35955-7, PINR, 94229-7, 2639-3 #### [facility] ([id number]) [address] [place] [address]12 Bilirubin [Mass/Vol] 0.5 mg/dL Normal 0.3-1.[address] [facility] Comment on above: Performed By: #### C BCA, CMP, 2156-10, 56602-6, 79036-2, 60821-5, PINR, 28725-8, 2639-3 #### [facility] ([id number]) [address] [place] [address] 87113 Calcium [Mass/Vol] 8.2 mg/dL Low 8.5-10.5 [facility] Comment on above: Performed By: #### C BCA, CMP, 2156-10, 68152-5, 91536-3, 92563-0, PINR, 55864-4, 2639-3 #### [facility] ([id number]) [address] [place] [address] 75107 Chloride [Moles/Vol] 107 mmol/L Normal 98-[address] [facility] Comment on above: Performed By: #### C BCA, CMP, 2156-6, 07867-7, 26376-7, 69487-3, PINR, 09884-5, 2639-3 #### [facility] ([id number]) [address] [place] [address] 11603 CO2 [Moles/Vol] 24 mmol/L Normal 22-32 [facility] Comment on above: Performed By: #### C BCA, CMP, 2156-, 34181-1, 13662-6, 61413-7, PINR, 21798-0, 2639-3 #### [facility] ([id number]) [address] [place] [address]9539 Creatinine [Mass/Vol] 0.83 mg/dL Normal 0.40-1.00 [facility] Comment on above: Result Comment: METH OD TRACEABLE TO IDMS STANDARD Performed By: #### C TEDDY, CMP, 2156-10, , 78117-2, 02779-9, PINR, 20608-2, 2639-3 #### [facility] ([id number]) [address] [place] [address]2651 GFR/1.73 sq M.predicted among non-blacks MDRD (S/P/Bld) [Vol rate/Area] 83 mL/min/{1.73_m2} Normal >59 [facility] Comment on above: Result Comment: Reported eGFR is based on the CKD-EPI 2020 equation that does not use a race coefficient. Performed By: #### C TEDDY, CMP, 2156-10, 55579-2, 15596-0, 65655-7, PINR, 37980-9, 2639-3 #### [facility] ([id number]) [address] [place] [address] 97863 Glucose [Mass/Vol] 101 mg/dL High 65-99 [facility] Comment on above: Performed By: #### C BCA, CMP, 2156-10, 90149-9, 50000-7, 51218-1, PINR, 38854-3, 2639-3 #### [facility] ([id number]) [address] [place] [address] 96610 Potassium [Moles/Vol] 3.7 mmol/L Normal 3.5-5.0 [facility] Comment on above: Performed By: #### C BCA, CMP, 2156-6, 31214-3, 12938-3, 03342-8, PINR, 39186-6, 2639-3 #### [facility] ([id number]) [address] [place] [address] 12988 Protein [Mass/Vol] 6.3 g/dL Normal 6.0-8.0 [facility] Comment on above: Performed By: #### C BCA, CMP, 2156-6, 53613-4, 62059-2, 40440-9, PINR, 27522-3, 2639-3 #### [facility] ([id number]) [address] [place] [address] 40052 Sodium [Moles/Vol] 140 mmol/L Normal 134-146 [facility] Comment on above: Performed By: #### C BCA, CMP, 2156-6, 27308-3, 63285-2, 35787-5, PINR, 11032-9, 2639-3 #### [facility] ([id number]) [address] [place] [address] [place] [address] Urea nitrogen [Mass/Vol] 8 mg/dL Normal 5-23 [facility] Comment on above: Performed By: #### C BCA, CMP, 2156-6, 59169-0, 05778-6, 65788-5, PINR, 52830-9, 2639-3 #### [facility] ([id number]) [address] [place] [address] [place] [address] MAGNESIUMon 08-31-2024 Magnesium [Mass/Vol] 2.0 mg/dL Normal 1.8-2.[address] [facility] Comment on above: Performed By: #### C BCA, CMP, 2156-6, 86943-5, 04890-7, 46149-3, PINR, 65609-5, 2639-3 #### [facility] ([id number]) [address] [place] [address] 21171 Myoglobin [Mass/Vol]on 08-31 SERUM MYOGLOBIN 47.5 ng/mL Normal 14.3-65.8 [facility] Comment on above: Performed By: #### C BCA, CMP, 2156-6, 48363-8, 15616-7, 92377-5, PINR, 75094-1, 2639-3 #### [facility] ([id number]) [address] [place] [address] 45565 SERUM MYOGLOBIN 62.9 ng/mL Normal 14.3-65.8 [facility] Comment on above: Performed By: #### C BCA, CMP, 2156-6, 61096-8, 63585-9, 46785-1, PINR, 85245-4, 2639-3 #### [facility] ([id number]) [address] [place] [address] 49234 POTASSIUMon 08-31-2024 Potassium [Moles/Vol] 4.0 mmol/L Normal 3.5-5.0 [facility] Comment on above: Performed By: #### C BCA, CMP, 2156-6, 79105-7, 22831-3, 31506-5, PINR, 36408-0, 2639-3 #### [facility] ([id number]) [address] [place] [address] 55948 CBC AND AUTO DIFFon 08-31-19 25 ABSOLUTE BASOPHIL 0.1 X10E9/L Normal 0.0-0.2 [facility] Comment on above: Performed By: #### C BCA, CMP, 2156-6, 07479-6, 33419-5, 67194-0, PINR, 43088-9, 2639-3 #### [facility] ([id number]) [address] [place] [address] ABSOLUTE NEUTROPHIL 9.5 X10E9/L High 1.5-6.[address] [facility] Comment on above: Performed By: #### C BCA, CMP, 2156-, 33219-5, 77233-9, 06825-1, PINR, 25752-7, 2639-3 #### [facility] ([id number]) [address] [place] [address] 79055 Basophils/100 WBC (Bld) 0.5 % Normal [facility] Comment on above: Performed By: #### C BCA, CMP, 2156-, 13985-4, 58260-2, 42848-2, PINR, 11121-0, 2639-3 #### [facility] ([id number]) [address] [place] [address] 71710 Eosinophils (Bld) [#/Vol] 0.0 10*3/uL Normal 0.0-0.4 [facility] Comment on above: Performed By: #### C BCA, CMP, 2156-10, 80943-1, 41579-7, 84026-4, PINR, 57692-2, 2639-3 #### [facility] ([id number]) [address] [place] [address] 86428 Eosinophils/100 WBC (Bld) 0.3 % Normal [facility] Comment on above: Performed By: #### C BCA, CMP, 2156-10, 94972-7, 08061-0, 94813-2, PINR, 61887-8, 2639-3 #### [facility] ([id number]) [address] [place] [address] 26438 Erythrocyte distribution width (RBC) [Ratio] 15.0 % Normal 11.5-15.0 [facility] Comment on above: Performed By: #### C BCA, CMP, 2156-, 34594-6, 74506-4, 74920-5, PINR, 23248-1, 2639-3 #### [facility] ([id number]) [address] [place] [address] 54763 Hematocrit (Bld) [Volume fraction] 36.8 % Normal 35-47 [facility] Comment on above: Performed By: #### C BCA, CMP, 2156-6, 81845-2, 45301-8, 38961-8, PINR, 12626-8, 2639-3 #### [facility] ([id number]) [address] [place] [address] 80986 Hemoglobin (Bld) [Mass/Vol] 12.4 g/dL Normal 11.7-15.5 [facility] Comment on above: Performed By: #### C BCA, CMP, 2156-6, 58724-2, 97603-3, 24090-0, PINR, 77594-0, 2639-3 #### [facility] ([id number]) [address] [place] [address] 67722 Lymphocytes (Bld) [#/Vol] 0.7 10*3/uL Low 1.0-3.5 [facility] Comment on above: Performed By: #### C BCA, CMP, 2156-6, 30031-8, 34571-9, 45166-4, PINR, 83852-6, 2639-3 #### [facility] ([id number]) [address] [place] [address] 83466 Lymphocytes/100 WBC (Bld) 5.8 % Normal [facility] Comment on above: Performed By: #### C BCA, CMP, 2156-6, 09838-1, 12901-9, 95095-9, PINR, 33733-6, 2639-3 #### [facility] ([id number]) [address] [place] [address] 92243 MCH (RBC) [Entitic mass] 28.0 pg Normal 27-34 [facility] Comment on above: Performed By: #### C BCA, CMP, 2156-6, 35695-7, 48736-0, 70122-8, PINR, 49299-7, 2639-3 #### [facility] ([id number]) [address] [place] [address] 83273 MCHC (RBC) [Mass/Vol] 33.6 g/dL Normal 32-36 [facility] Comment on above: Performed By: #### C BCA, CMP, 2156-, 87874-0, 43718-6, 93105-9, PINR, 47464-6, 2639-3 #### [facility] ([id number]) [address] [place] [address] 14848 MCV (RBC) [Entitic vol] 83 fL Normal 80-100 [facility] Comment on above: Performed By: #### C BCA, CMP, 2156-10, 72388-2, 18310-3, 21851-9, PINR, 26637-0, 2639-3 #### [facility] ([id number]) [address] [place] [address] 78943 Monocytes (Bld) [#/Vol] 1.1 10*3/uL High 0-0.9 [facility] Comment on above: Performed By: #### C BCA, CMP, 2156-10, 14935-3, 56319-5, 22218-6, PINR, 61925-5, 2639-3 #### [facility] ([id number]) [address] [place] [address] 56754 Monocytes/100 WBC (Bld) 9.8 % Normal [facility] Comment on above: Performed By: #### C BCA, CMP, 2156-6, 74612-9, 85020-1, 21736-0, PINR, 30496-9, 2639-3 #### [facility] ([id number]) [address] [place] [address] Neutrophils/100 WBC (Bld) 83.6 % Normal [facility] Comment on above: Performed By: #### C BCA, CMP, 2156-6, 63956-9, 30401-9, 46770-9, PINR, 26467-7, 2639-3 #### [facility] ([id number]) [address] [place] [address] 33812 Platelet mean volume (Bld) [Entitic vol] 9.6 fL Normal 7-12 [facility] Comment on above: Performed By: #### C BCA, CMP, 2156-, 85974-1, 07973-2, 68356-7, PINR, 32769-5, 2639-3 #### [facility] ([id number]) [address] [place] [address] 27483 Platelets (Bld) [#/Vol] 202 10*3/uL Normal 150-450 [facility] Comment on above: Performed By: #### C BCA, CMP, 2156-, 47158-0, 80497-5, 73917-9, PINR, 62359-1, 2639-3 #### [facility] ([id number]) [address] [place] [address] 75029 RBC COUNT 4.41 X10E12/L Normal 3.80-5.20 [facility] Comment on above: Performed By: #### C BCA, CMP, 2156-6, 91189-0, 51831-5, 27096-9, PINR, 18952-5, 2639-3 #### [facility] ([id number]) [address] [place] [address] 63611 WBC (Bld) [#/Vol] 11.4 10*3/uL High 4.0-11.0 [facility] Comment on above: Performed By: #### C BCA, CMP, 2156-, 26244-5, 12750-3, 98256-9, PINR, 83169-1, 2639-3 #### [facility] ([id number]) [address] [place] [address] 43465 CK [Catalytic activity/Vol]o n 08-30-2024 CPK 563 U/L High 24-170 [facility] Comment on above: Performed By: #### C BCA, CMP, 2157-6, 67009-3, 47238-7, 37191-2, PINR, 37845-3, 2639-3 #### [facility] ([id number]) [address] [place] [address] 61508 CPK 831 U/L High 24-170 [facility] Comment on above: Performed By: #### C BCA, CMP, 2157-6, 04191-5, 99862-9, 42197-6, PINR, 60328-9, 2639-3 #### [facility] ([id number]) [address] [place] [address] 45359 CPK 1066 U/L High 24-170 [facility] Comment on above: Performed By: #### C BCA, CMP, 2157-6, 49358-8, 47913-5, 10853-5, PINR, 79630-2, 2639-3 #### [facility] ([id number]) [address] [place] [address] 33246 COMPREHENSIVE METABOLIC PANE Antoni 08-30-2024 Albumin [Mass/Vol] 2.7 g/dL Low 3.2-5.3 [facility] Comment on above: Performed By: #### C BCA, CMP, 2157-6, 64154-7, 74514-2, 92306-0, PINR, 89196-6, 2639-3 #### [facility] ([id number]) [address] [place] [address] 99951 ALP [Catalytic activity/Vol] 57 U/L Normal 39-130 [facility] Comment on above: Performed By: #### C BCA, CMP, 7-6, 24947-7, 71697-5, 85664-9, PINR, 89765-7, 2639-3 #### [facility] ([id number]) [address] [place] [address] 93029 ALT [Catalytic activity/Vol] 36 U/L High 0-31 [facility] Comment on above: Performed By: #### C BCA, CMP, 2156-6, 84581-4, 95231-2, 23834-3, PINR, 56939-2, 2639-3 #### [facility] ([id number]) [address] [place] [address] 83748 Anion gap [Moles/Vol] 11 mmol/L Normal 5-15 [facility] Comment on above: Performed By: #### C BCA, CMP, 2156-6, 21383-8, 61436-3, 61755-4, PINR, 87771-1, 2639-3 #### [facility] ([id number]) [address] [place] [address] 96320 AST [Catalytic activity/Vol] 52 U/L High 0-41 [facility] Comment on above: Performed By: #### C BCA, CMP, 2156-6, 64269-3, 06135-5, 23144-2, PINR, 70270-2, 2639-3 #### [facility] ([id number]) [address] [place] [address] 05824 Bilirubin [Mass/Vol] 0.6 mg/dL Normal 0.3-1.[address] [facility] Comment on above: Performed By: #### C BCA, CMP, 2156-6, 90039-4, 39207-7, 82511-2, PINR, 17382-7, 2639-3 #### [facility] ([id number]) [address] [place] [address] 32812 Calcium [Mass/Vol] 8.2 mg/dL Low 8.5-10.5 [facility] Comment on above: Performed By: #### C BCA, CMP, 7-6, 56611-8, 29642-2, 11923-4, PINR, 16680-7, 2639-3 #### [facility] ([id number]) [address] [place] [address] 10565 Chloride [Moles/Vol] 106 mmol/L Normal 98-[address] [facility] Comment on above: Performed By: #### C BCA, CMP, 2156-6, 73600-4, 01225-0, 98754-1, PINR, 44044-6, 2639-3 #### [facility] ([id number]) [address] [place] [address] 99372 CO2 [Moles/Vol] 21 mmol/L Low 22-32 [facility] Comment on above: Performed By: #### C BCA, CMP, 7-6, 55035-8, 13338-6, 65677-6, PINR, 38968-1, 2639-3 #### [facility] ([id number]) [address] [place] [address] 16566 Creatinine [Mass/Vol] 0.87 mg/dL Normal 0.40-1.00 [facility] Comment on above: Result Comment: METH OD TRACEABLE TO IDMS STANDARD Performed By: #### C BCA, CMP, 7-6, 12083-3, 48097-3, 24842-7, PINR, 78108-9, 2639-3 #### [facility] ([id number]) [address] [place] [address] 28255 GFR/1.73 sq M.predicted among non-blacks MDRD (S/P/Bld) [Vol rate/Area] 78 mL/min/{1.73_m2} Normal >59 [facility] Comment on above: Result Comment: Reported eGFR is based on the CKD-EPI 2020 equation that does not use a race coefficient. Performed By: #### C BCA, CMP, 7-6, 87812-2, 47738-6, 89885-9, PINR, 70721-7, 2639-3 #### [facility] ([id number]) [address] [place] [address] Glucose [Mass/Vol] 107 mg/dL High 65-99 [facility] Comment on above: Performed By: #### C BCA, CMP, 2156-6, 20606-1, 75422-0, 17786-7, PINR, 96515-1, 2639-3 #### [facility] ([id number]) [address] [place] [address] 36879 Potassium [Moles/Vol] 3.9 mmol/L Normal 3.5-5.0 [facility] Comment on above: Performed By: #### C BCA, CMP, 2156-6, 51701-6, 50929-2, 76415-6, PINR, 12737-0, 2639-3 #### [facility] ([id number]) [address] [place] [address] 62838 Protein [Mass/Vol] 6.2 g/dL Normal 6.0-8.0 [facility] Comment on above: Performed By: #### C BCA, CMP, 2156-6, 56249-2, 20971-6, 19313-1, PINR, 04986-7, 2639-3 #### [facility] ([id number]) [address] [place] [address] 63779 Sodium [Moles/Vol] 138 mmol/L Normal 134-146 [facility] Comment on above: Performed By: #### C BCA, CMP, 2156-6, 58512-2, 09954-5, 53140-7, PINR, 55334-9, 2639-3 #### [facility] ([id number]) [address] [place] [address] Urea nitrogen [Mass/Vol] 6 mg/dL Normal 5-23 [facility] Comment on above: Performed By: #### C BCA, CMP, 7-6, 39695-9, 43270-7, 52500-6, PINR, 40235-8, 2639-3 #### [facility] ([id number]) [address] [place] [address] 52545 MAGNESIUMon 08-30-2024 Magnesium [Mass/Vol] 2.0 mg/dL Normal 1.8-2.[address] [facility] Comment on above: Performed By: #### C BCA, CMP, 2156-6, 82938-8, 29247-9, 07752-4, PINR, 99168-7, 2639-3 #### [facility] ([id number]) [address] [place] [address] 44036 Myoglobin [Mass/Vol]on 08-30 SERUM MYOGLOBIN 67.5 ng/mL High 14.3-65.8 [facility] Comment on above: Performed By: #### C BCA, CMP, 2156-6, 72275-0, 23531-1, 22226-3, PINR, 16587-3, 2639-3 #### [facility] ([id number]) [address] [place] [address] 55383 SERUM MYOGLOBIN 127.2 ng/mL High 14.3-65.8 [facility] Comment on above: Performed By: #### C BCA, CMP, 2156-6, 50682-4, 68195-6, 33111-9, PINR, 76533-5, 2639-3 #### [facility] ([id number]) [address] [place] [address] 82071 SERUM MYOGLOBIN 77.9 ng/mL High 14.3-65.8 [facility] Comment on above: Performed By: #### C BCA, CMP, 7-6, 50014-2, 03542-3, 74759-0, PINR, 56565-7, 2639-3 #### [facility] ([id number]) [address] [place] [address] 29217 CBC AND AUTO DIFFon 08-30-19 25 ABSOLUTE BASOPHIL 0.0 X10E9/L Normal 0.0-0.2 [facility] Comment on above: Performed By: #### C BCA, CMP, 2156-6, 64861-1, 96348-3, 60975-1, PINR, 53430-6, 2639-3 #### [facility] ([id number]) [address] [place] [address] 56755 ABSOLUTE NEUTROPHIL 5.8 X10E9/L Normal 1.5-6.[address] [facility] Comment on above: Performed By: #### C BCA, CMP, 2156-6, 71579-5, 75148-0, 00069-9, PINR, 76911-3, 2639-3 #### [facility] ([id number]) [address] [place] [address] [place] [address] Basophils/100 WBC (Bld) 0.5 % Normal [facility] Comment on above: Performed By: #### C BCA, CMP, 2156-6, 63045-0, 84769-8, 24211-4, PINR, 58258-7, 2639-3 #### [facility] ([id number]) [address] [place] [address] 64312 Eosinophils (Bld) [#/Vol] 0.1 10*3/uL Normal 0.0-0.4 [facility] Comment on above: Performed By: #### C BCA, CMP, 2156-6, 23988-0, 84021-2, 44245-6, PINR, 48541-7, 2639-3 #### [facility] ([id number]) [address] [place] [address] 66576 Eosinophils/100 WBC (Bld) 1.6 % Normal [facility] Comment on above: Performed By: #### C BCA, CMP, 7-6, 60861-0, 06022-7, 03965-1, PINR, 90547-6, 2639-3 #### [facility] ([id number]) [address] [place] [address] 85578 Erythrocyte distribution width (RBC) [Ratio] 15.7 % High 11.5-15.0 [facility] Comment on above: Performed By: #### C BCA, CMP, 2156-6, 78050-6, 63192-7, 22200-3, PINR, 29649-8, 2639-3 #### [facility] ([id number]) [address] [place] [address] 36396 Hematocrit (Bld) [Volume fraction] 36.8 % Normal 35-47 [facility] Comment on above: Performed By: #### C BCA, CMP, 2156-6, 47682-0, 55170-7, 80037-0, PINR, 82645-5, 2639-3 #### [facility] ([id number]) [address] [place] [address] 70272 Hemoglobin (Bld) [Mass/Vol] 12.3 g/dL Normal 11.7-15.5 [facility] Comment on above: Performed By: #### C BCA, CMP, 2156-6, 19023-5, 84245-5, 85364-5, PINR, 98312-9, 2639-3 #### [facility] ([id number]) [address] [place] [address] 01433 Lymphocytes (Bld) [#/Vol] 0.9 10*3/uL Low 1.0-3.5 [facility] Comment on above: Performed By: #### C BCA, CMP, 2156-6, 73637-2, 63532-1, 32905-2, PINR, 96312-1, 2639-3 #### [facility] ([id number]) [address] [place] [address] 19157 Lymphocytes/100 WBC (Bld) 11.3 % Normal [facility] Comment on above: Performed By: #### C BCA, CMP, 2156-, 81588-9, 15808-5, 47290-8, PINR, 55973-7, 2639-3 #### [facility] ([id number]) [address] [place] [address] 80647 MCH (RBC) [Entitic mass] 27.8 pg Normal 27-34 [facility] Comment on above: Performed By: #### C BCA, CMP, 2156-10, 54866-0, 85456-8, 34133-4, PINR, 59802-6, 2639-3 #### [facility] ([id number]) [address] [place] [address] 75299 MCHC (RBC) [Mass/Vol] 33.4 g/dL Normal 32-36 [facility] Comment on above: Performed By: #### C BCA, CMP, 2156-10, 37270-3, 61370-4, 04102-7, PINR, 69566-3, 2639-3 #### [facility] ([id number]) [address] [place] [address] [place] [address] MCV (RBC) [Entitic vol] 83 fL Normal 80-100 [facility] Comment on above: Performed By: #### C BCA, CMP, 2156-6, 90282-4, 53425-5, 65922-2, PINR, 34528-5, 2639-3 #### [facility] ([id number]) [address] [place] [address] [place] [address] Monocytes (Bld) [#/Vol] 0.8 10*3/uL Normal 0-0.9 [facility] Comment on above: Performed By: #### C BCA, CMP, 2156-6, 22062-2, 61652-6, 66371-4, PINR, 88873-7, 2639-3 #### [facility] ([id number]) [address] [place] [address] 00629 Monocytes/100 WBC (Bld) 10.5 % Normal [facility] Comment on above: Performed By: #### C BCA, CMP, 2156-, 93834-8, 77069-6, 78251-8, PINR, 22596-5, 2639-3 #### [facility] ([id number]) [address] [place] [address] 08688 Neutrophils/100 WBC (Bld) 76.1 % Normal [facility] Comment on above: Performed By: #### C BCA, CMP, 2156-, 04481-3, 81571-6, 41697-5, PINR, 48895-2, 2639-3 #### [facility] ([id number]) [address] [place] [address] 11585 Platelet mean volume (Bld) [Entitic vol] 9.1 fL Normal 7-12 [facility] Comment on above: Performed By: #### C BCA, CMP, 2156-, 76356-9, 67308-4, 95846-3, PINR, 32135-3, 2639-3 #### [facility] ([id number]) [address] [place] [address] 12196 Platelets (Bld) [#/Vol] 188 10*3/uL Normal 150-450 [facility] Comment on above: Performed By: #### C BCA, CMP, 2156-, 96337-3, 42418-2, 89772-0, PINR, 23889-3, 2639-3 #### [facility] ([id number]) [address] [place] [address] 64681 RBC COUNT 4.42 X10E12/L Normal 3.80-5.20 [facility] Comment on above: Performed By: #### C BCA, CMP, 2157-6, 55828-2, 04175-8, 95827-5, PINR, 73041-7, 2639-3 #### [facility] ([id number]) [address] [place] [address] 07636 WBC (Bld) [#/Vol] 7.7 10*3/uL Normal 4.0-11.0 [facility] Comment on above: Performed By: #### C BCA, CMP, 2157-6, 73325-5, 00793-7, 04727-4, PINR, 69145-2, 2639-3 #### [facility] ([id number]) [address] [place] [address] 33362 CK [Catalytic activity/Vol]o n 08-29-2024 CPK 1666 U/L High 24-170 [facility] Comment on above: Performed By: #### C BCA, CMP, 2157-6, 20169-3, 15724-5, 37737-0, PINR, 74263-3, 2639-3 #### [facility] ([id number]) [address] [place] [address] 61972 CPK 2774 U/L High 24-170 [facility] Comment on above: Performed By: #### C BCA, CMP, 2157-6, 77966-1, 55278-9, 98501-3, PINR, 95833-7, 2639-3 #### [facility] ([id number]) [address] [place] [address] 58392 CPK 3580 U/L High 24-170 [facility] Comment on above: Performed By: #### C BCA, CMP, 2157-6, 90914-0, 63884-8, 09774-9, PINR, 31499-5, 2639-3 #### [facility] ([id number]) [address] [place] [address], [place] [address] COMPREHENSIVE METABOLIC PANE Antoni 08-29-2024 Albumin [Mass/Vol] 2.7 g/dL Low 3.2-5.3 [facility] Comment on above: Performed By: #### C BCA, CMP, 2157-6, 69293-1, 83330-6, 99171-7, PINR, 09655-6, 2639-3 #### [facility] ([id number]) [address] [place] [address], [place] [address] ALP [Catalytic activity/Vol] 60 U/L Normal 39-130 [facility] Comment on above: Performed By: #### C BCA, CMP, 2156-6, 14551-1, 21572-8, 39010-5, PINR, 84455-4, 2639-3 #### [facility] ([id number]) [address] [place] [address], [place] [address] ALT [Catalytic activity/Vol] 46 U/L High 0-31 [facility] Comment on above: Performed By: #### C BCA, CMP, 7-6, 24393-6, 64329-4, 96525-2, PINR, 40886-9, 2639-3 #### [facility] ([id number]) [address] [place] [address], [place] [address] Anion gap [Moles/Vol] 8 mmol/L Normal 5-15 [facility] Comment on above: Performed By: #### C BCA, CMP, 2157-6, 47290-4, 85783-9, 77974-7, PINR, 53192-2, 2639-3 #### [facility] ([id number]) [address] [place] [address]45 AST [Catalytic activity/Vol] 94 U/L High 0-41 [facility] Comment on above: Performed By: #### C BCA, CMP, 2156-6, 89132-8, 56038-3, 48993-9, PINR, 05929-9, 2639-3 #### [facility] ([id number]) [address] [place] [address]148 Bilirubin [Mass/Vol] 0.5 mg/dL Normal 0.3-1.[address] [facility] Comment on above: Performed By: #### C BCA, CMP, 2156-6, 89506-8, 65935-9, 29863-7, PINR, 02116-9, 2639-3 #### [facility] ([id number]) [address] [place] [address] 16136 Calcium [Mass/Vol] 8.0 mg/dL Low 8.5-10.5 [facility] Comment on above: Performed By: #### C BCA, CMP, 2156-6, 54270-7, 56305-2, 21621-5, PINR, 87257-3, 2639-3 #### [facility] ([id number]) [address] [place] [address] 41233 Chloride [Moles/Vol] 112 mmol/L High 98-[address] [facility] Comment on above: Performed By: #### C BCA, CMP, 2156-6, 58986-2, 57880-5, 72780-3, PINR, 62967-2, 2639-3 #### [facility] ([id number]) [address] [place] [address]58 CO2 [Moles/Vol] 20 mmol/L Low 22-32 [facility] Comment on above: Performed By: #### C BCA, CMP, 2156-6, 86159-7, 36617-4, 55021-6, PINR, 22328-6, 2639-3 #### [facility] ([id number]) [address] [place] [address]34 Creatinine [Mass/Vol] 0.86 mg/dL Normal 0.40-1.00 [facility] Comment on above: Result Comment: METH OD TRACEABLE TO IDMS STANDARD Performed By: #### C BCA, CMP, 2156-6, 04196-0, 62141-8, 78608-8, PINR, 13241-6, 2639-3 #### [facility] ([id number]) [address] [place] [address]902 GFR/1.73 sq M.predicted among non-blacks MDRD (S/P/Bld) [Vol rate/Area] 79 mL/min/{1.73_m2} Normal >59 [facility] Comment on above: Result Comment: Reported eGFR is based on the CKD-EPI 2020 equation that does not use a race coefficient. Performed By: #### C BCA, CMP, 2156-6, 27130-8, 32725-5, 46792-6, PINR, 79634-0, 2639-3 #### [facility] ([id number]) [address] [place] [address] 40664 Glucose [Mass/Vol] 91 mg/dL Normal 65-99 [facility] Comment on above: Performed By: #### C BCA, CMP, 2156-6, 36100-0, 42248-3, 31019-8, PINR, 09685-4, 2639-3 #### [facility] ([id number]) [address] [place] [address] 81199 Potassium [Moles/Vol] 4.0 mmol/L Normal 3.5-5.0 [facility] Comment on above: Performed By: #### C BCA, CMP, 2157-6, 29773-5, 29848-0, 21083-0, PINR, 74682-7, 2639-3 #### [facility] ([id number]) [address] [place] [address] 30330 Protein [Mass/Vol] 6.4 g/dL Normal 6.0-8.0 [facility] Comment on above: Performed By: #### C BCA, CMP, 2156-6, 49809-8, 49560-6, 01933-8, PINR, 08601-4, 2639-3 #### [facility] ([id number]) [address] [place] [address] 75066 Sodium [Moles/Vol] 140 mmol/L Normal 134-146 [facility] Comment on above: Performed By: #### C BCA, CMP, 2156-6, 49816-0, 37808-5, 83410-1, PINR, 26421-8, 2639-3 #### [facility] ([id number]) [address] [place] [address] 55106 Urea nitrogen [Mass/Vol] 10 mg/dL Normal 5-23 [facility] Comment on above: Performed By: #### C BCA, CMP, 2156-6, 31820-1, 49279-1, 14778-0, PINR, 47978-8, 2639-3 #### [facility] ([id number]) [address] [place] [address] 59470 Calcium.ionized (Bld) [Moles /Vol]on 08-29-2024 PORTABLE ICA 4.6 mg/dL Normal 4.5-5.3 [facility] Comment on above: Performed By: #### C BCA, CMP, 2156-6, 31330-0, 28749-2, 53053-2, PINR, 33477-6, 2639-3 #### [facility] ([id number]) [address] [place] [address] 58708 Lipid 1996 panelon Cholesterol [Mass/Vol] 151 mg/dL Normal 150-200 [facility] Comment on above: Performed By: #### C BCA, CMP, 7-6, 78004-6, 52637-4, 83296-8, PINR, 79781-6, 2639-3 #### [facility] ([id number]) [address] [place] [address] 86940 Cholesterol in HDL [Mass/Vol] 29 mg/dL Low >39 [facility] Comment on above: Result Comment: HDL <40 mg/dL - High Risk HDL > or = 40mg/dL- Desirable HDL >60 mg/dL - Negative Risk Performed By: #### C BCA, CMP, 2156-6, 51972-6, 71514-5, 07652-6, PINR, 73676-2, 2639-3 #### [facility] ([id number]) [address] [place] [address] 00602 Cholesterol in LDL [Mass/Vol] 100 mg/dL Normal <130 [facility] Comment on above: Result Comment: LDL <100 mg/dL - Desirable LDL >160 mg/dL - High Risk Performed By: #### C BCA, CMP, 2156-6, 17771-0, 50705-6, 13991-3, PINR, 39353-9, 2639-3 #### [facility] ([id number]) [address] [place] [address] 84943 Cholesterol in VLDL [Mass/Vol] 22 mg/dL Normal 0-30 [facility] Comment on above: Performed By: #### C BCA, CMP, 7-6, 68876-2, 73326-8, 78101-6, PINR, 74255-6, 2639-3 #### [facility] ([id number]) [address] [place] [address] 52958 CHOLESTEROL:HDL 5.2 High 1.0-5.0 [facility] Comment on above: Performed By: #### C BCA, CMP, 2156-, 26466-4, 80665-6, 10294-0, PINR, 70262-6, 2639-3 #### [facility] ([id number]) [address] [place] [address] 68401 Triglyceride [Mass/Vol] 112 mg/dL Normal 27-150 [facility] Comment on above: Performed By: #### C BCA, CMP, 2156-, 75888-6, 29073-1, 74277-1, PINR, 77788-9, 2639-3 #### [facility] ([id number]) [address] [place] [address] 11246 MAGNESIUMon 08-29-2024 Magnesium [Mass/Vol] 2.1 mg/dL Normal 1.8-2.[address] [facility] Comment on above: Performed By: #### C BCA, CMP, 2156-, 18945-7, 86393-7, 38649-1, PINR, 41100-9, 2639-3 #### [facility] ([id number]) [address] [place] [address] 58303 Magnesium [Mass/Vol] 1.9 mg/dL Normal 1.8-2.[address] [facility] Comment on above: Performed By: #### C BCA, CMP, 2156-10, 06767-3, 56452-5, 98476-7, PINR, 92617-2, 2639-3 #### [facility] ([id number]) [address] [place] [address] 46587 Myoglobin [Mass/Vol]on 08-29 SERUM MYOGLOBIN 96.4 ng/mL High 14.3-65.8 [facility] Comment on above: Performed By: #### C BCA, CMP, 2156-6, 42506-4, 79498-8, 78737-3, PINR, 10366-6, 2639-3 #### [facility] ([id number]) [address] [place] [address] 07743 SERUM MYOGLOBIN 230.3 ng/mL High 14.3-65.8 [facility] Comment on above: Performed By: #### C BCA, CMP, 2156-, 60796-8, 72156-0, 64787-6, PINR, 34572-4, 2639-3 #### [facility] ([id number]) [address] [place] [address] 68976 SERUM MYOGLOBIN 374.0 ng/mL High 14.3-65.8 [facility] Comment on above: Performed By: #### C BCA, CMP, 2156-10, 35199-0, 91732-5, 55151-3, PINR, 71710-8, 2639-3 #### [facility] ([id number]) [address] [place] [address] [place] [address] CBC AND AUTO DIFFon --20 25 ABSOLUTE BASOPHIL 0.0 X10E9/L Normal 0.0-0.2 [facility] Comment on above: Performed By: #### C BCA, CMP, 2156-, 23676-0, 96681-3, 58219-3, PINR, 04804-1, 2639-3 #### [facility] ([id number]) [address] [place] [address] 27425 ABSOLUTE NEUTROPHIL 12.1 X10E9/L High 1.5-6.6 [facility] Comment on above: Performed By: #### C BCA, CMP, 2156-, 78483-0, 74892-5, 19709-5, PINR, 27117-7, 2639-3 #### [facility] ([id number]) [address] [place] [address] 35369 Basophils/100 WBC (Bld) 0.2 % Normal [facility] Comment on above: Performed By: #### C BCA, CMP, 7-6, 80046-7, 29244-5, 79130-5, PINR, 65339-1, 2639-3 #### [facility] ([id number]) [address] [place] [address] 92430 Eosinophils (Bld) [#/Vol] 0.0 10*3/uL Normal 0.0-0.4 [facility] Comment on above: Performed By: #### C BCA, CMP, 2156-6, 54530-0, 95626-8, 56064-8, PINR, 59925-3, 2639-3 #### [facility] ([id number]) [address] [place] [address] 66676 Eosinophils/100 WBC (Bld) 0.1 % Normal [facility] Comment on above: Performed By: #### C BCA, CMP, 2156-6, 17582-0, 96101-0, 42287-1, PINR, 52546-9, 2639-3 #### [facility] ([id number]) [address] [place] [address] 66270 Erythrocyte distribution width (RBC) [Ratio] 15.7 % High 11.5-15.0 [facility] Comment on above: Performed By: #### C BCA, CMP, 2156-6, 98589-8, 64988-0, 56294-9, PINR, 29305-5, 2639-3 #### [facility] ([id number]) [address] [place] [address] 89774 Hematocrit (Bld) [Volume fraction] 40.3 % Normal 35-47 [facility] Comment on above: Performed By: #### C BCA, CMP, 2156-6, 43178-6, 31523-0, 56092-3, PINR, 00561-1, 2639-3 #### [facility] ([id number]) [address] [place] [address] 47252 Hemoglobin (Bld) [Mass/Vol] 13.5 g/dL Normal 11.7-15.5 [facility] Comment on above: Performed By: #### C BCA, CMP, 2156-6, 46457-2, 71913-9, 71674-4, PINR, 52949-7, 2639-3 #### [facility] ([id number]) [address] [place] [address] 23273 Lymphocytes (Bld) [#/Vol] 0.6 10*3/uL Low 1.0-3.5 [facility] Comment on above: Performed By: #### C BCA, CMP, 2156-6, 33421-8, 29324-9, 53648-3, PINR, 56120-4, 2639-3 #### [facility] ([id number]) [address] [place] [address] 18066 Lymphocytes/100 WBC (Bld) 4.6 % Normal [facility] Comment on above: Performed By: #### C BCA, CMP, 2156-6, 85343-2, 76509-2, 26686-3, PINR, 99690-8, 2639-3 #### [facility] ([id number]) [address] [place] [address] 25052 MCH (RBC) [Entitic mass] 28.0 pg Normal 27-34 [facility] Comment on above: Performed By: #### C BCA, CMP, 2156-6, 82092-6, 00669-8, 96840-3, PINR, 46399-6, 2639-3 #### [facility] ([id number]) [address] [place] [address] 92241 MCHC (RBC) [Mass/Vol] 33.6 g/dL Normal 32-36 [facility] Comment on above: Performed By: #### C BCA, CMP, 7-6, 69994-0, 67143-0, 94439-0, PINR, 58076-5, 2639-3 #### [facility] ([id number]) [address] [place] [address] 58200 MCV (RBC) [Entitic vol] 83 fL Normal 80-100 [facility] Comment on above: Performed By: #### C BCA, CMP, 2156-6, 51876-1, 48016-2, 99444-0, PINR, 64231-3, 2639-3 #### [facility] ([id number]) [address] [place] [address] 06466 Monocytes (Bld) [#/Vol] 1.4 10*3/uL High 0-0.9 [facility] Comment on above: Performed By: #### C BCA, CMP, 2156-6, 01426-9, 94269-5, 16531-5, PINR, 40662-6, 2639-3 #### [facility] ([id number]) [address] [place] [address] 26050 Monocytes/100 WBC (Bld) 9.9 % Normal [facility] Comment on above: Performed By: #### C BCA, CMP, 2156-6, 47595-8, 40411-4, 71353-8, PINR, 00168-2, 2639-3 #### [facility] ([id number]) [address] [place] [address] 55420 Neutrophils/100 WBC (Bld) 85.2 % Normal [facility] Comment on above: Performed By: #### C BCA, CMP, 2156-6, 65751-2, 73344-8, 32973-4, PINR, 89024-6, 2639-3 #### [facility] ([id number]) [address] [place] [address] 82396 Platelet mean volume (Bld) [Entitic vol] 9.0 fL Normal 7-12 [facility] Comment on above: Performed By: #### C BCA, CMP, 7-6, 46935-2, 24480-8, 28724-0, PINR, 69769-7, 2639-3 #### [facility] ([id number]) [address] [place] [address] 11186 Platelets (Bld) [#/Vol] 239 10*3/uL Normal 150-450 [facility] Comment on above: Performed By: #### C BCA, CMP, 7-6, 29453-1, 99864-2, 27733-8, PINR, 66232-3, 2639-3 #### [facility] ([id number]) [address] [place] [address] 25374 RBC COUNT 4.83 X10E12/L Normal 3.80-5.20 [facility] Comment on above: Performed By: #### C BCA, CMP, 7-6, 89697-8, 11211-4, 68361-4, PINR, 43781-4, 2639-3 #### [facility] ([id number]) [address] [place] [address] 36895 WBC (Bld) [#/Vol] 14.2 10*3/uL High 4.0-11.0 [facility] Comment on above: Performed By: #### C BCA, CMP, 2157-6, 37260-5, 55990-9, 64711-2, PINR, 43925-5, 2639-3 #### [facility] ([id number]) [address] [place] [address] 67545 CK [Catalytic activity/Vol]o n 08-28-2024 CPK 4648 U/L High 24-170 [facility] Comment on above: Performed By: #### C BCA, CMP, 2157-6, 22004-6, 60908-9, 75981-2, PINR, 45813-7, 2639-3 #### [facility] ([id number]) [address] [place] [address], [place] [address] CPK 3034 U/L High 24-170 [facility] Comment on above: Performed By: #### C BCA, CMP, 2157-6, 55363-6, 98791-1, 97708-0, PINR, 44264-5, 2639-3 #### [facility] ([id number]) [address] [place] [address] [place] [address] COMPREHENSIVE METABOLIC PANE Atnoni 08-28-2024 Albumin [Mass/Vol] 3.5 g/dL Normal 3.2-5.3 [facility] Comment on above: Performed By: #### C BCA, CMP, 2157-6, 04551-7, 85893-8, 20511-8, PINR, 62203-0, 2639-3 #### [facility] ([id number]) [address] [place] [address], [place] [address] ALP [Catalytic activity/Vol] 86 U/L Normal 39-130 [facility] Comment on above: Performed By: #### C BCA, CMP, 2157-6, 86814-7, 66536-2, 31753-3, PINR, 95008-7, 2639-3 #### [facility] ([id number]) [address] [place] [address] [place] [address] ALT [Catalytic activity/Vol] 32 U/L High 0-31 [facility] Comment on above: Performed By: #### C BCA, CMP, 2157-6, 91765-1, 42848-2, 03200-5, PINR, 78141-6, 2639-3 #### [facility] ([id number]) [address] [place] [address] 77823 Anion gap [Moles/Vol] 10 mmol/L Normal 5-15 [facility] Comment on above: Performed By: #### C BCA, CMP, 2156-, 17838-6, 92793-2, 47551-9, PINR, 31747-7, 2639-3 #### [facility] ([id number]) [address] [place] [address] 44284 AST [Catalytic activity/Vol] 62 U/L High 0-41 [facility] Comment on above: Performed By: #### C BCA, CMP, 2156-, 21216-4, 43474-3, 04714-4, PINR, 70459-8, 2639-3 #### [facility] ([id number]) [address] [place] [address] 01533 Bilirubin [Mass/Vol] 0.6 mg/dL Normal 0.3-1.[address] [facility] Comment on above: Performed By: #### C BCA, CMP, 2156-10, 46436-9, 65505-7, 41211-4, PINR, 81340-2, 2639-3 #### [facility] ([id number]) [address] [place] [address] 94701 Calcium [Mass/Vol] 9.4 mg/dL Normal 8.5-10.5 [facility] Comment on above: Performed By: #### C BCA, CMP, 2156-6, 76561-8, 81378-6, 70855-2, PINR, 25703-7, 2639-3 #### [facility] ([id number]) [address] [place] [address] 48737 Chloride [Moles/Vol] 107 mmol/L Normal 98-[address] [facility] Comment on above: Performed By: #### C BCA, CMP, 2156-10, 69546-8, 84945-2, 54385-0, PINR, 41495-1, 2639-3 #### [facility] ([id number]) [address] [place] [address] 77420 CO2 [Moles/Vol] 24 mmol/L Normal 22-32 [facility] Comment on above: Performed By: #### C BCA, CMP, 2156-6, 06356-8, 84382-0, 75928-4, PINR, 59272-9, 2639-3 #### [facility] ([id number]) [address] [place] [address] 11561 Creatinine [Mass/Vol] 1.27 mg/dL High 0.40-1.00 [facility] Comment on above: Result Comment: METH OD TRACEABLE TO IDMS STANDARD Performed By: #### C BCA, CMP, 2156-10, 64785-7, 02871-5, 77354-6, PINR, 75200-8, 2639-3 #### [facility] ([id number]) [address] [place] [address] 00034 GFR/1.73 sq M.predicted among non-blacks MDRD (S/P/Bld) [Vol rate/Area] 50 mL/min/{1.73_m2} Low >59 [facility] Comment on above: Result Comment: Reported eGFR is based on the CKD-EPI 2020 equation that does not use a race coefficient. Performed By: #### C BCA, CMP, 2156-6, 13822-9, 81682-9, 74008-0, PINR, 79320-8, 2639-3 #### [facility] ([id number]) [address] [place] [address] 32044 Glucose [Mass/Vol] 137 mg/dL High 65-99 [facility] Comment on above: Performed By: #### C BCA, CMP, 2156-6, 70306-8, 07982-6, 77837-4, PINR, 18559-9, 2639-3 #### [facility] ([id number]) [address] [place] [address] 06877 Potassium [Moles/Vol] 3.8 mmol/L Normal 3.5-5.0 [facility] Comment on above: Performed By: #### C BCA, CMP, 2157-6, 10535-1, 05649-6, 89460-2, PINR, 85595-1, 2639-3 #### [facility] ([id number]) [address] [place] [address] 96398 Protein [Mass/Vol] 8.1 g/dL High 6.0-8.0 [facility] Comment on above: Performed By: #### C BCA, CMP, 7-6, 00294-9, 98658-3, 02045-8, PINR, 49893-0, 2639-3 #### [facility] ([id number]) [address] [place] [address] 12531 Sodium [Moles/Vol] 141 mmol/L Normal 134-146 [facility] Comment on above: Performed By: #### C BCA, CMP, 2157-6, 86176-4, 76883-1, 82694-1, PINR, 56041-9, 2639-3 #### [facility] ([id number]) [address] [place] [address] 96901 Urea nitrogen [Mass/Vol] 15 mg/dL Normal 5-23 [facility] Comment on above: Performed By: #### C BCA, CMP, 2157-6, 96612-8, 24715-0, 34526-0, PINR, 34753-5, 2639-3 #### [facility] ([id number]) [address] [place] [address] CTA CHESTon 08-28-2024 CT CTA CHEST [...] for acute or suspicious pathology in the jwmon-za-jhcy. The trachea and bronchi are patent. No [...] Saini MD on 08/28/2024 12:40 PM Normal [facility] Fibrin D-dimer DDU (PPP) [Ma ss/Vol]on 08-28-2024 D DIMER 5157 ng/mL DDU High <255 [facility] Comment on above: Result Comment: Results [...] Performed By: #### C BCA, CMP, 2157-6, 62946-3, 85395-1, 25281-1, PINR, 73712-1, 2639-3 #### [facility] ([id number]) [address] [place] [address], [place] [address] MAGNESIUMon 08-28-2024 Magnesium [Mass/Vol] 1.9 mg/dL Normal 1.8-2.[address] [facility] Comment on above: Performed By: #### C BCA, CMP, 2156-10, 02528-4, 44898-1, 74278-6, PINR, 48902-6, 2639-3 #### [facility] ([id number]) [address] [place] [address] 68524 Magnesium [Mass/Vol] 2.0 mg/dL Normal 1.8-2.[address] [facility] Comment on above: Performed By: #### C BCA, CMP, 2156-10, , 49604-9, 51047-9, PINR, 94838-3, 2639-3 #### [facility] ([id number]) [address] [place] [address] 03110 Myoglobin [Mass/Vol]on 08-28 SERUM MYOGLOBIN 1035.9 ng/mL High 14.3-65.8 [facility] Comment on above: Performed By: #### C BCA, CMP, 2156-10, 41411-1, 46186-6, 24073-5, PINR, 07331-5, 2639-3 #### [facility] ([id number]) [address] [place] [address] 07036 SERUM MYOGLOBIN 4039.8 ng/mL High 14.3-65.8 [facility] Comment on above: Performed By: #### C BCA, CMP, 2156-10, 54060-7, 44955-0, 46996-1, PINR, 95893-2, 2639-3 #### [facility] ([id number]) [address] [place] [address] 21004 POTASSIUMon 08-28-2024 Potassium [Moles/Vol] 3.2 mmol/L Low 3.5-5.0 [facility] Comment on above: Performed By: #### C BCA, CMP, 2157-6, 09001-9, 76394-8, 05614-2, PINR, 34501-1, 2639-3 #### [facility] ([id number]) [address] [place] [address] 27848 PROTIME AND INRon 08-28-2024 INR Coag (PPP) [Relative time] 1.3 {INR} High 0.9-1.2 [facility] Comment on above: Performed By: #### C BCA, CMP, 2157-6, 83527-8, 99045-9, 33431-5, PINR, 23017-5, 2639-3 #### [facility] ([id number]) [address] [place] [address] 32640 PT Coag (PPP) [Time] 15.0 s High 9.8-13.[address] [facility] Comment on above: Result Comment: NEW REFERENCE RANGE Performed By: #### C BCA, CMP, 2157-6, 74507-0, 17095-8, 86367-7, PINR, 12760-8, 2639-3 #### [facility] ([id number]) [address] [place] [address] 12745 SARS/FLU A+B/RSV by NAAT/Mol ecularon 08-28-2024 SARS/FLU [...] operators who are performing tests using either [employer] or [employer] systems and is limited to laboratories that [...] repeat. Fact Sheet for Healthcare Providers: https://www.fda.gov/m edia/472523/download Fact Sheet for Patients: https://www.fda.gov/m edia/233981/download Normal [facility] Comment on above: Performed By: #### C BCA, CMP, 2157-6, 21000-9, 07369-5, 26815-9, PINR, 08795-3, 2639-3 #### [facility] ([id number]) [address] [place] [address], [place] [address] Troponin I.cardiac High sens itivity method [Mass/Vol]on 08-28-2024 3 HOUR TROP I, HIGH SENSITIVITY 42 ng/L High <16 [facility] Comment on above: Result Comment: Elevations of hs-Troponin may be due to causes other than myocardial ischemia. Recommend serial hs-Troponin testing be performed. For the initial evaluation and management of chest pain patients, refer to the algorithms linked below. Emergency Patient: [email or web address] Inpatient: [email or web address] 5&uh=acaea Performed By: #### C BCA, CMP, 2157-6, 92548-3, 54635-3, 06976-8, PINR, 00769-2, 2639-3 #### [facility] ([id number]) [address] [place] [address] 09857 1 HOUR TROP I, HIGH SENSITIVITY 34 ng/L High <16 [facility] Comment on above: Result Comment: Elevations of hs-Troponin may be due to causes other than myocardial ischemia. Recommend serial hs-Troponin testing be performed. For the initial evaluation and management of chest pain patients, refer to the algorithms linked below. Emergency Patient: [email or web address]=[email or web address] Inpatient: [email or web address] 5&uh=acaea Performed By: #### C BCA, CMP, 2157-6, 10919-1, 34270-6, 32367-9, PINR, 40078-3, 2639-3 #### [facility] ([id number]) [address] [place] [address] 15379 TROPONIN I, HIGH SENSITIVITY 29 ng/L High <16 [facility] Comment on above: Result Comment: Elevations of hs-Troponin may be due to causes other than myocardial ischemia. Recommend serial hs-Troponin testing be performed. For the initial evaluation and management of chest pain patients, refer to the algorithms linked below. Emergency Patient: [email or web address]=[email or web address] Inpatient: [email or web address]&uh=[email or web address] Performed By: #### C TEDDY, CMP, 2157-6, 45517-0, 28006-7, 86595-9, PINR, 64514-2, 2639-3 #### [facility] ([id number]) [address] [place] [address] 92060 XR CHEST 1 VWon 08-28-2024 XR CHEST 1 VW XR CHEST 1 VW Portable chest: HISTORY: Cough and weakness. Single view of the chest was obtained. Cardiac and mediastinal contours are within normal limits. Lungs clear. There is no vascular congestion or effusion. IMPRESSION: Negative exam. Finalized by Gian Gilbert MD on 08/28/2024 10:58 AM Normal [facility] aPTT Coag (PPP) [Time]on aPTT Coag (Bld) [Time] 31 s Normal 26-37 Pr [facility] Comment on above: Result Comment: NEW REFERENCE RANGE Performed By: #### C BCA, CMP, 2157-6, 72655-5, 41273-7, 93910-8, PINR, 83703-7, 2639-3 #### [facility] ([id number]) [address] [place] [id number] Urine Cultureon 08-22-2024 Bacteria identified Cx Nom (U) ORGANISM: Proteus mirabilis (O:PROMIR) [place] Count >100,000 Aerobic ROSE Charge (NMIC56) ---- [...] RESISTANT TO ALL B-LACTAM DRUGS. PERFORMED BY: [place] [address] PATHOLOGIST UX DESIGNER CLAIRE PATEL M.D. Normal [facility] Comment on above: Performed By: #### C UU #### [address] Urine cultureOrdered By: Julio Gruber on 08-22-2024 Bacteria identified Cx Nom (U) Abnormal [facility] Bacteria identified Cx Nom (U) Proteus mirabilis Abnormal [facility] MM TOMOSYNTHESIS SCREENING B Ion 06-30-2024 [place] [address] Mammography Report Signed Patient: ANUPAMA VASQUEZ MR#: [id number] : 1970 Acct:[id number] Age/Sex: 54 / F ADM Date: 06/30/24 Loc: MAMMO Attending Dr: Fred Gracia NP Ordering Physician: Fred Gracia NP Results: Date of Service: 06/30/24 Follow Up: Procedure(s): MM tomosynthesis screening BI Accession Number(s): [id number] cc: Fred Gracia NP Patient Name: ANUPAMA VASQUEZ MR#: [id number] : 1970 Exam Date: 06/30/2024 Ordering Doctor: [...] cancer at age 56. LOCATION: [facility] BREAST COMPOSITION: There are scattered areas [...] Signed By: 06/30/24 1133 DD/ 1132 TD/TT: Analytics Manager: [facility] Radiology, Radiologist, - 06/30/2024 [place] [address] Mammography Report Signed Patient: ANUPAMA VASQUEZ MR#: [id number] : 1970 Acct:[id number] Age/Sex: 54 / F ADM Date: 06/30/24 Loc: MAMMO Attending Dr: Fred Gracia NP Ordering Physician: Fred Gracia NP Results: Date of Service: 06/30/24 Follow Up: Procedure(s): MM tomosynthesis screening BI Accession Number(s): [id number] cc: Fred Gracia NP Patient Name: ANUPAMA VASQUEZ MR#: [id number] : 1970 Exam Date: 06/30/2024 Ordering Doctor: [...] cancer at age 56. LOCATION: [facility] BREAST COMPOSITION: There are scattered areas [...] Signed By: 06/30/24 1133 DD/ 1132 TD/TT: Analytics Manager: [place] [facility] Study observation (narrative) [facility] MM TOMOSYNTHESIS SCREENING B IOrdered By: Radiologist Radiology on 06-30-2024 [facility] Work Phone: No Panel Informationon 04-27 Alona [...] the correct patient, procedure, equipment, patient support associate and site/side marked as required. Patient was prepped and draped in the usual sterile fashion. [facility] XR Shoulder - left 2 Viewson 02-25-2024 [...] Name: PEDROANUPAMA/Sex: 1970 Female Med Rec #: [id number] Physician: Eliazar Brokos DO Financial #: [id number] Pt. Type: A Room/Bed: Admit/Disch: 02/10/24 11:39:41 [...] 2 Entry 3 Case Attendee Cynthia BROWN, GEOLOGICAL ENGINEER, [place] Eliazar Brooks DOhelsavita PAYNE, Marlyn Campuzano Role Performed GEOLOGICAL ENGINEER Surgeon - Primary Scrub - Primary Time [...] Attendee Adams Pak Laura C Role Performed Retirement Sales Consultant - Primary Scrub - Primary Time In [...] Antibiotic Yes Given Time Out Mitkarlee DNP, GEOLOGICAL ENGINEER, [place] Time Out Complete 02/10/24 14:35:00 Participants [...] and tissue Entry 1 Skin Integrity Intact, [place], Warm, & Skin Abnormality No Dry Outcomes Met? Yes Last Modified By: Adams Pak 02/10/24 15:02:50 Post-Care Text: The patient is free from signs and symptoms of injury caused by extraneous objects Patient Positioning FT Pre-Care Text: Identifies physical alterations that require additional precautions for procedure-specific positioning, verifies presence of prosthetics (more content not included)... Normal [facility] Operative Reporton Operative Report Operative Report SURGERY DATE: 02/10/2024 COAGULATING DRYING SUPERVISOR: Marlyn Kate C.F.A. PREOPERATIVE DIAGNOSIS: Left shoulder [...] a lateral portal incision utilizing a 90-degree Dazey wand as well as 5.0 bone cutter, [...] PATIENT CONDITION: Satisfactory Aguila Santamaria Dictated: 02/10/2024 [id number] Transcribed: 02/10/2024 Normal [facility] Comment on above: Result Comment: Elec [...] scheduled appointment Call for any problems. Where: [address] [place] [phone]- e-contratos (1) Medications What How Much When Why [...] needed for shoulder surgical pain. Pickup at [facility] Unchanged ergocalciferol (Vitamin D) 1,200 International [...] bedtime) as needed for Sleep Pharmacy Information [facility]: [address] [place], [place] [id number] [phone] Test Results No qualifying data available. Allergies No Known Allergies Problems Ongoing - Any problem that you are currently receiving treatment for. Menopause Mini stroke MS - Multiple sclerosis Smoker Education Materials [place], [place] [facility] AFTER YOUR SHOULDER ARTHROSCOPY [...] have any (more content not included)... Normal [facility] Comment on above: Result Comment: Elec tronically Signed By: Aime ROSA, Brigida Lantigua\.br\Date and Time Signed: 02/10/24 15:46 EDT Main OR PACU I Recordon 01-19 Main OR PACU I Record Main OR PACU I Rec ord PACU Phase I Document Type FT Summary Primary Physician: Eliazar Brooks DO Finalized Date/Time: 02/10/24 16:23:54 Pt. Name: ANUPAMA VASQUEZ/Sex: 1970 Female Med Rec #: [id number] Physician: Eliazar Brooks DO Financial #: [id number] Pt. Type: A Room/Bed: Admit/Disch: 02/10/24 11:39:41 [...] By: Meera Rose RN 02/10/24 16:23 Normal [facility] Main OR PACU II Recordon Main OR PACU II Record Main OR PACU II Record PACU Phase II Document Type FT Summary Primary Physician: Eliazar Brooks DO Finalized Date/Time: 02/10/24 18:07:34 Pt. Name: ANUPAMA VASQUEZ/Sex: 1970 Female Med Rec #: [id number] Physician: Eliazar Brooks DO Financial #: [id number] Pt. Type: A Room/Bed: Admit/Disch: 02/10/24 11:39:41 [...] By: Sherron Deleon RN 02/10/24 18:07 Normal [facility] Main OR Preoperative Recordo n 02-10-2024 Main OR Preoperative Record Main OR Preoperative Record PreOp Document Type FT Summary Primary Physician: Eliazar Brooks DO Finalized Date/Time: 02/10/24 15:51:36 Pt. Name: ANUPAMA VASQUEZ /Sex: 1970 Female Med Rec #: [id number] Physician: Eliazar Brooks DO Financial #: [id number] Pt. Type: A Room/Bed: Admit/Disch: 02/10/24 11:39:41 [...] 02/10/24 14:59 Adams Pak 02/10/24 15:51 Normal [facility] Proceduralon 02-10-2024 Procedural Procedural Patient: ANUPAMA [...] Using maximal sterile barrier technique per current [facility] guidelines including hand hygeine, Guidance (Ultrasound [...] Cynthia CRNA under Dr Vega's supervision.. Normal [facility] Inpatient Patient Summaryon 02-06-2024 Inpatient Patient Summary Inpatient Patient Summary [address] [address] [facility] Clinical Discharge Instructions PERSON INFORMATION Name: ANUPAMA VASQUEZ PHYSICIANS Admitting Physician: Eliazar Brooks DO Attending Physician: Eliazar Brooks DO PCP: FRANCES AGUILERA CNP Discharge Diagnosis: Impingement of left shoulder Comment: PATIENT EDUCATION INFORMATION Instructions: Zbigniew - After Your Shoulder Arthroscopy (Revised 06/17/14) (CUSTOM) Medication Leaflets: Follow up: With: Address: When: Eliazar Brooks [address] [place] [address] [facility] (1) Comments: Keep scheduled appointment Type Location Start [facility] Surgery [facility] 02/10/2024 2:30 PM 02/10/2024 [...] Mouth 2 times a day. Comment: Normal [facility] Outpatient Surgery Discharge Instructionon 02-06-2024 Outpatient Surgery Discharge Instruction Outpatient Surgery Discharge Instruction [place] [id number] Patient Discharge Instructions PERSON INFORMATION Name: RADHA [...] Follow up: With: Address: When: Eliazar Brooks [address] [place], [place] [phone] [facility] (1) Comments: Keep scheduled appointment Type Location Start [facility] Surgery [facility] 02/10/2024 2:30 PM 02/10/2024 [...] to serve you. Thank you for choosing [facility] HERE ARE THE MEDICATION CHANGES THAT [...] times a day. PATIENT EDUCATION INFORMATION Instructions: [place], [place] [facility] AFTER YOUR SHOULDER ARTHROSCOPY [...] medication as (more content not included)... Normal [facility] XR Chest 2 Viewson 4 XR [...] mGy = . DAP = . Normal [facility] BMPon 02-05-2024 Anion gap [Moles/Vol] 11 mmol/L Normal 6-16 [facility] Comment on above: Performed By: #### 2 [id number] #### [facility] [address] [place] [address] Calcium [Mass/Vol] 9.4 mg/dL Normal 8.9-11.1 [facility] Comment on above: Performed By: #### 2 023396 #### [facility] [address] [place] [address] Chloride [Moles/Vol] 104 mmol/L Normal 101-111 [facility] Comment on above: Performed By: #### 2 097351 #### [facility] [address] [place] [address] CO2 [Moles/Vol] 31 mmol/L Normal 21-31 [facility] Comment on above: Performed By: #### 2 055188 #### [facility] [address] [place] [address] Creatinine [Mass/Vol] 0.9 mg/dL Normal 0.5-1.3 [facility] Comment on above: Performed By: #### 2 346646 #### [facility] [address] [place] [address] Glucose [Mass/Vol] 93 mg/dL Normal 55-199 [facility] Comment on above: Performed By: #### 2 562738 #### [facility] [address] [place] [address] Potassium [Moles/Vol] 4.1 mmol/L Normal 3.5-5.3 [facility] Comment on above: Performed By: #### 2 362600 #### [facility] [address] [place] [address] Sodium [Moles/Vol] 142 mmol/L Normal 135-145 [facility] Comment on above: Performed By: #### 2 255432 #### [facility] [address] [place] [address] Urea nitrogen [Mass/Vol] 11 mg/dL Normal 5-21 [facility] Comment on above: Performed By: #### 2 153633 #### [facility] [address] [place] [address] Urea nitrogen/Creatinine [Mass ratio] 12 No Units Normal 10-20 [facility] Comment on above: Performed By: #### 2 695100 #### [facility] [address] [place] [address] CBC w/ Auto Diffon 4 Basophils/100 WBC (Bld) 0.6 % Normal 0.0-2.0 [facility] Comment on above: Performed By: #### 2 798265 #### [facility] [address] [place] [address] Basophils/Leukocytes Auto (Bld) [Pure # fraction] 0.0 E9/L Normal 0.0-0.2 [facility] Comment on above: Performed By: #### 2 829700 #### [facility] [address] [place] [address] Eosinophils (Bld) [#/Vol] 0.1 E9/L Normal 0.0-0.5 [facility] Comment on above: Performed By: #### 2 262241 #### [facility] [address] [place] [address] Eosinophils/100 WBC (Bld) 1.2 % Normal 0.0-8.0 [facility] Comment on above: Performed By: #### 2 118620 #### [facility] [address] [place] [address] Erythrocyte distribution width (RBC) [Ratio] 17.5 % High 10.9-14.2 [facility] Comment on above: Performed By: #### 2 196642 #### [facility] [address] [place] [address] Hematocrit (Bld) [Volume fraction] 37.9 % Normal 34.0-46.0 [facility] Comment on above: Performed By: #### 2 580849 #### [facility] [address] [place] [address] Hemoglobin (Bld) [Mass/Vol] 12.6 g/dL Normal 12.0-16.0 [facility] Comment on above: Performed By: #### 2 888106 #### [facility] [address] [place] [address] Lymphocytes (Bld) [#/Vol] 0.8 E9/L Low 1.0-4.0 [facility] Comment on above: Performed By: #### 2 545343 #### [facility] [address] [place] [address] Lymphocytes/100 WBC (Bld) 11.1 % Low 14.0-50.0 [facility] Comment on above: Performed By: #### 2 935434 #### [facility] [address] [place] [address] MCH (RBC) [Entitic mass] 27.8 pg Normal 27.0-34.0 [facility] Comment on above: Performed By: #### 2 610292 #### [facility] [address] [place] [address] MCHC (RBC) [Mass/Vol] 33.2 g/dL Normal 31.4-36.0 [facility] Comment on above: Performed By: #### 2 497130 #### [facility] [address] [place] [address] MCV (RBC) [Entitic vol] 83.9 fL Normal 80.0-100.0 [facility] Comment on above: Performed By: #### 2 918178 #### [facility] [address] [place] [address] Monocytes (Bld) [#/Vol] 0.8 E9/L Normal 0.2-1.0 [facility] Comment on above: Performed By: #### 2 243070 #### [facility] [address] [place] [address] Neutrophils (Bld) [#/Vol] 5.4 E9/L Normal 2.0-7.5 [facility] Comment on above: Performed By: #### 2 163537 #### [facility] [address] [place] [address] Neutrophils/100 WBC (Bld) 76.4 % High 36.0-75.0 [facility] Comment on above: Performed By: #### 2 557176 #### [facility] [address] [place] [address] Platelet 195.0 E9/L Normal 150.0-500. 0 [facility] Comment on above: Performed By: #### 2 299633 #### [facility] [address] [place] [address] Platelet mean volume (Bld) [Entitic vol] 10.4 fL Normal 6.4-10.8 [facility] Comment on above: Performed By: #### 2 361999 #### [facility] [address] [place] [address] RBC (Bld) [#/Vol] 4.5 E12/L Normal 4.3-5.9 [facility] Comment on above: Performed By: #### 2 276873 #### [facility] [address] [place] [address] WBC corrected for nucl RBC Auto (Bld) [#/Vol] 7.1 E9/L Normal 4.0-11.0 [facility] Comment on above: Performed By: #### 2 394803 #### [facility] [address] [place] [address] [place] [address] eGFRon 02-05-2024 eGFR 75 mL/min/1.73 m2 Normal >=59 [facility] Comment on above: Order Comment: Order added by Discern Expert. Performed By: #### 1 [id number] ####[facility] [address] [place] [address] TBH UA (CLEAN/CATCH) MICROSC OPIC IF INDICATEon [...] CNPNon 12-19-2023 RUBINAN Telephone (MARK) ANUPAMA VASQUEZ ([id number]) 1970 F Date Time Provider Department 12/19/23 NURSE ANGLE [facility] [place] During your visit today, we [...] Status:Closed by TEAGAN ROSESHE on 12/19/23 Normal [facility] MR SHOULDER LEFT WO IV [...] 7-8 years ago CNPNon 08-21-2023 CNPN Telephone ([facility]) ANUPAMA VASQUEZ ([id number]) 1970 F Date Time Provider Department 08/21/23 JESSICA CLARKE [facility] During your visit today, we recorded the following information about you: Renuka Ellison 08/21/2023 4:19 PM Signed [place] Call Name of caller : Anupama Vasquez Relationship to patient: Self Return call phone number : [phone] Reason for call : Other : Brief [...] of spine [M48.02] Order(s):CONSULT TO SPINE SURGERY [[id number]] Order #: [id number]: 1 FUTURE Prescriptions as of 08/22/2023 - [...] Encounter Status:Closed by ELIZABETH VICTORIA on 08/22/23 [facility] 07-15-2023 [facility] Telephone ([facility]) ANUPAMA VASQUEZ ([id number]) 1970 F Date Time Provider Department 07/15/23 [...] since c-spine MRI was completed locally outside [facility] in April. Orders already placed Elizabeth Victoria RN 07/16/2023 2:21 PM Signed Called patient, no answer. Message left to return call to office when able. MOE Spencer Megan A, RN 07/17/2023 9:04 AM Signed Called patient, no answer. Message left indicating Myreks message would be sent with reason for [...] sclerosis (HCC) [G35] Order(s):MRI BRAIN WO/W IVCON [[id number]] Order #: [id number] FUTURE iv contrast (will be provided with [...] by ELIZABETH VICTORIA on 07/17/23 [facility] CNOVon 07-10-2023 CNOV Office Visit (PAINLN ) ANUPAMA VASQUEZ ([id number]) 1970 F Date Time Provider Department 07/10/23 6:00 PM [facility] During your visit today, we recorded the following information about you: Pulse Weight Height 89/minute 134.3 kg 1.676 m Jacob Toledos KeilaDO 07/12/2023 11:26 AM Signed [facility] Initial Evaluation July 10, 2023 This appointment was requested by Jessica Clarke PA-C, for my medical opinion regarding the evaluation and management of the patient's Anupama Vasquez problems, and my final recommendations will be communicated to the requesting health care provider by way of the shared medical record for internal providers or letter via the [employer] for external providers. 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 Normal [facility] CBC W Auto Differential pane l (Bld)on 05-22-2023 Basophils (Bld) [#/Vol] 0.05 10*3/uL Normal <0.11 [facility] Comment on above: Order Comment: Speci men Type: BLOOD SPECIMENOrdering Facility: [facility] Address: [address] [place] [address] Performed By: #### 5 7021-8 ####[facility] LABCLIA [id number] [place] [address] [place] Basophils/100 WBC (Bld) 0.5 % Normal [facility] Comment on above: Order Comment: Speci men Type: BLOOD SPECIMENOrdering Facility: [facility] Address: [address] [place] [address] Performed By: #### 5 7021-8 ####[facility] LABCLIA [id number] [place] [address] [place] Differential cell count method Nom (Bld) Auto Normal [facility] Comment on above: Order Comment: Speci men Type: BLOOD SPECIMENOrdering Facility: [facility] Address: [address] [place] [address] Performed By: #### 5 7021-8 ####[facility] LABCLIA [id number] [place] [address] [place] Eosinophils (Bld) [#/Vol] 0.19 10*3/uL Normal <0.46 [facility] Comment on above: Order Comment: Speci men Type: BLOOD SPECIMENOrdering Facility: [facility] Address: [address] [place] [address] Performed By: #### 5 7021-8 ####[facility] LABCLIA [id number] [place] [address] [place] Eosinophils/100 WBC (Bld) 2.1 % Normal [facility] Comment on above: Order Comment: Speci men Type: BLOOD SPECIMENOrdering Facility: [facility] Address: [address] [place] [address] Performed By: #### 5 7021-8 ####[facility] LABCLIA [id number] [place] [address] [place] Erythrocyte distribution width (RBC) [Ratio] 15.5 % High 11.5-15.0 [facility] Comment on above: Order Comment: Speci men Type: BLOOD SPECIMENOrdering Facility: [facility] Address: [address] [place] [address] Performed By: #### 5 7021-8 ####[facility] LABIA [id number] [place] [address] [place] Hematocrit (Bld) [Volume fraction] 42.1 % Normal 36.0-46.0 [facility] Comment on above: Order Comment: Speci men Type: BLOOD SPECIMENOrdering Facility: [facility] Address: [address] [place] [address] Performed By: #### 5 7021-8 ####[facility] LABIA [id number] [place] [address] [place] Hemoglobin (Bld) [Mass/Vol] 12.9 g/dL Normal 11.5-15.5 [facility] Comment on above: Order Comment: Speci men Type: BLOOD SPECIMENOrdering Facility: [facility] Address: [address] [place] [address] Performed By: #### 5 7021-8 ####[facility] LABIA [id number] [place] [address] [place] Immature granulocytes (Bld) [#/Vol] 0.04 10*3/uL Normal <0.10 [facility] Comment on above: Order Comment: Speci men Type: BLOOD SPECIMENOrdering Facility: [facility] Address: [address] [place] [address] Performed By: #### 5 7021-8 ####[facility] LABIA [id number] [place] [address] [place] Immature granulocytes/100 WBC (Bld) 0.4 % Normal [facility] Comment on above: Order Comment: Speci men Type: BLOOD SPECIMENOrdering Facility: [facility] Address: [address] [place] [address] Performed By: #### 5 7021-8 ####[facility] LABCLIA [id number] [place] [address] [place] Lymphocytes (Bld) [#/Vol] 0.82 10*3/uL Low 1.00-4.00 [facility] Comment on above: Order Comment: Speci men Type: BLOOD SPECIMENOrdering Facility: [facility] Address: [address] [place] [address] Performed By: #### 5 7021-8 ####[facility] LABCLIA [id number] [place] [address] [place] Lymphocytes/100 WBC (Bld) 9.0 % Normal [facility] Comment on above: Order Comment: Speci men Type: BLOOD SPECIMENOrdering Facility: [facility] Address: [address] [place] [address] Performed By: #### 5 7021-8 ####[facility] LABCLIA [id number] [place] [address] [place] MCH (RBC) [Entitic mass] 26.9 pg Normal 26.0-34.0 [facility] Comment on above: Order Comment: Speci men Type: BLOOD SPECIMENOrdering Facility: [facility] Address: [address] [place] [address] Performed By: #### 5 7021-8 ####[facility] LABIA [id number] [place] [address] [place] MCHC (RBC) [Mass/Vol] 30.6 g/dL Normal 30.5-36.0 [facility] Comment on above: Order Comment: Speci men Type: BLOOD SPECIMENOrdering Facility: [facility] Address: [address] [place] [address] Performed By: #### 5 7021-8 ####[facility] LABCLIA [id number] [place] [address] [place] MCV (RBC) [Entitic vol] 87.9 fL Normal 80.0-100.0 [facility] Comment on above: Order Comment: Speci men Type: BLOOD SPECIMENOrdering Facility: [facility] Address: [address] [place] [address] Performed By: #### 5 7021-8 ####[facility] LABCLIA [id number] [place] [address] [place] Monocytes (Bld) [#/Vol] 0.93 10*3/uL High <0.87 [facility] Comment on above: Order Comment: Speci men Type: BLOOD SPECIMENOrdering Facility: [facility] Address: [address] [place] [address] Performed By: #### 5 7021-8 ####[facility] LABCLIA [id number] [place] [address] [place] Monocytes/100 WBC (Bld) 10.2 % Normal [facility] Comment on above: Order Comment: Speci men Type: BLOOD SPECIMENOrdering Facility: [facility] Address: [address] [place] [address] Performed By: #### 5 7021-8 ####[facility] LABCLIA [id number] [place] [address] [place] Neutrophils (Bld) [#/Vol] 7.07 10*3/uL Normal 1.45-7.50 [facility] Comment on above: Order Comment: Speci men Type: BLOOD SPECIMENOrdering Facility: [facility] Address: [address] [place] [address] Performed By: #### 5 7021-8 ####[facility] LABCLIA [id number] [place] [address] [place] Neutrophils/100 WBC (Bld) 77.8 % Normal [facility] Comment on above: Order Comment: Speci men Type: BLOOD SPECIMENOrdering Facility: [facility] Address: [address] [place] [address] Performed By: #### 5 7021-8 ####[facility] LABIA [id number] [place] [address] [place] Nucleated RBC (Bld) [#/Vol] 10*3/uL Normal <0.01 [facility] Comment on above: Order Comment: Speci men Type: BLOOD SPECIMENOrdering Facility: [facility] Address: [address] [place] [address] Performed By: #### 5 7021-8 ####[facility] LABIA [id number] [place] [address] [place] Nucleated RBC/100 WBC (Bld) [Ratio] 0.0 /100 WBC Normal [facility] Comment on above: Order Comment: Speci men Type: BLOOD SPECIMENOrdering Facility: [facility] Address: [address] [place] [address] Performed By: #### 5 7021-8 ####[facility] LABIA [id number] [place] [address] [place] Platelet mean volume (Bld) [Entitic vol] 12.4 fL Normal 9.0-12.7 [facility] Comment on above: Order Comment: Speci men Type: BLOOD SPECIMENOrdering Facility: [facility] Address: [address] [place] [address] Performed By: #### 5 7021-8 ####[facility] LABIA [id number] [place] [address] [place] Platelets (Bld) [#/Vol] 208 10*3/uL Normal 150-400 [facility] Comment on above: Order Comment: Speci men Type: BLOOD SPECIMENOrdering Facility: [facility] Address: [address] [place] [address] Performed By: #### 5 7021-8 ####[facility] LABCLIA [id number] [place] [address] [place] RBC (Bld) [#/Vol] 4.79 10*6/uL Normal 3.90-5.20 [facility] Comment on above: Order Comment: Speci men Type: BLOOD SPECIMENOrdering Facility: [facility] Address: [address] [place] [address] Performed By: #### 5 7021-8 ####[facility] LABCLIA [id number] [place] [address] [place] WBC (Bld) [#/Vol] 9.10 10*3/uL Normal 3.70-11.00 [facility] Comment on above: Order Comment: Speci men Type: BLOOD SPECIMENOrdering Facility: [facility] Address: [address] [place] [address] Performed By: #### 5 7021-8 ####[facility] LABIA [id number] [place] [address] [place] CD19 ABSOLUTE COUNTon 2023 CD3-CD19+ cells (Bld) [#/Vol] 219 cells/uL Normal 75-660 [facility] Comment on above: Order Comment: Speci men Type: BLOOD SPECIMENOrdering Facility: [facility] Address: [address] [place] [address] Performed By: #### A BS19 ####[facility] LABIA [id number] [place] [address] [place] CD3-CD19+ cells/100 cells (Bld) 23 % High 5-22 [facility] Comment on above: Order Comment: Speci men Type: BLOOD SPECIMENOrdering Facility: [facility] Address: [address] [place] [address] Performed By: #### A BS19 ####[facility] LABIA [id number] [address] [id number] [address] [place] Lymphocytes/100 WBC FC (Bld) Normal [facility] Comment on above: Order Comment: Speci men Type: BLOOD SPECIMENOrdering Facility: [facility] Address: [address] [place] [address] Performed By: #### A BS19 ####[facility] LABCLIA [id number] JESSICA CHARLESDESK [id number] [facility] CNOVon 05-22-2023 CNOV Office Visit (NTLORA ) ANUPAMA VASQUEZ ([id number]) 1970 F Date Time Provider Department 05/22/23 [...] her tubes tied. Referring Provider: SARTHAK ESCOBAR [[id number]] Allergies As of Date: 05/22/2023 (No Known Allergies) Date Reviewed: 10/11/2022 Reviewed by: Maryam Cabrera, MOE - Fully Assessed Primary Visit Diagnosis:Multiple sclerosis (HCC) [G35] Other Visit Diagnosis:Multiple sclerosis, relapsing-remitting (HCC) [G35] Order(s):TREATMENT PARAMETER-NOT NEEDED [[id number]] Order #: [id number]: 1 BCN CD20 NURSING COMMUNICATION [[id number]] Order #: [id number]: 1 BCN NURSING COMMUNICATION [[id number]] Order #: [id number]: 1 CD19 ABSOLUTE COUNT [SQABS19] Order #: [id number] FUTURE [] methylPREDNISolone sod succinate(PF) 100 mg injection (SOLU-Medrol)Disp: Rfl: [] acetaminophen 1,000 mg tab(s) (TYLENOL)Disp: Rfl: [] diphenhydrAMINE 50 mg (BENADRYL)Disp: Rfl: [] ocrelizumab 600 mg in NaCl 0.9% 500 mL (OCREVUS)Disp: Rfl: CBC + DIFF [SQCBCDIF] Order #: [id number]. #:[id number] COMP METABOLIC PANEL [SQCMP] Order #: [id number]. #:[id number] IGG [SQIGG] Order #: [id number]. #:[id number] IGM [SQIGM] Order #: [id number]. #:[id number] CD19 ABSOLUTE COUNT [SQABS19] Order #: [id number]. #:[id number] Prescriptions as of 05/23/2023 - lisinopril (ZESTRIL) [...] Status:Closed by SHE BRAND on 05/22/23 Normal [facility] Comprehensive metabolic 2000 panelon 05-22-2023 Albumin [Mass/Vol] 4.0 g/dL Normal 3.9-4.9 [facility] Comment on above: Order Comment: Speci men Type: BLOOD SPECIMENOrdering Facility: [facility] Address: [address] [place] [address] Performed By: #### 2 4323-8 ####[facility] LABCLIA [id number] [place] [address] [place] ALP [Catalytic activity/Vol] 90 U/L Normal 34-123 [facility] Comment on above: Order Comment: Speci men Type: BLOOD SPECIMENOrdering Facility: [facility] Address: [address] [place] [address] Performed By: #### 2 4323-8 ####[facility] LABCLIA [id number] [place] [address] [place] ALT [Catalytic activity/Vol] 23 U/L Normal 7-38 [facility] Comment on above: Order Comment: Speci men Type: BLOOD SPECIMENOrdering Facility: [facility] Address: [address] [place] [address] Performed By: #### 2 4323-8 ####[facility] LABCLIA [id number] [place] [address] [place] Anion gap [Moles/Vol] 13 mmol/L Normal 9-18 [facility] Comment on above: Order Comment: Speci men Type: BLOOD SPECIMENOrdering Facility: [facility] Address: [address] [place] [address] Performed By: #### 2 4323-8 ####[facility] LABCLIA [id number] [place] [address] [place] AST [Catalytic activity/Vol] 25 U/L Normal 13-35 [facility] Comment on above: Order Comment: Speci men Type: BLOOD SPECIMENOrdering Facility: [facility] Address: [address] [place] [address] Performed By: #### 2 4323-8 ####[facility] LABCLIA [id number] [address] [address] [place] Bilirubin [Mass/Vol] 0.3 mg/dL Normal 0.2-1.3 [facility] Comment on above: Order Comment: Speci men Type: BLOOD SPECIMENOrdering Facility: [facility] Address: [address] [place] [address] Performed By: #### 2 4323-8 ####[facility] LABCLIA [id number] [place] [address] [place] Calcium [Mass/Vol] 9.4 mg/dL Normal 8.5-10.2 [facility] Comment on above: Order Comment: Speci men Type: BLOOD SPECIMENOrdering Facility: [facility] Address: [address] [place] [address] Performed By: #### 2 4323-8 ####[facility] LABCLIA [id number] [place] [address] [place] Chloride [Moles/Vol] 103 mmol/L Normal 97-105 [facility] Comment on above: Order Comment: Speci men Type: BLOOD SPECIMENOrdering Facility: [facility] Address: [address] [place] [address] Performed By: #### 2 4323-8 ####[facility] LABCLIA [id number] [place] [address] [place] CO2 [Moles/Vol] 27 mmol/L Normal 22-30 [facility] Comment on above: Order Comment: Speci men Type: BLOOD SPECIMENOrdering Facility: [facility] Address: [address] [place] [address] Performed By: #### 2 4323-8 ####[facility] LABCLIA [id number] [place] [address] [place] Creatinine [Mass/Vol] 1.04 mg/dL High 0.58-0.96 [facility] Comment on above: Order Comment: Speci men Type: BLOOD SPECIMENOrdering Facility: [facility] Address: [address] [place] [address] Performed By: #### 2 4323-8 ####[facility] LABIA [id number] [place] [address] [place] Creatinine and Glomerular filtration rate.predicted panel (S/P/Bld) 64 mL/min/1.73m??? Normal >=60 [facility] Comment on above: Order Comment: Ali men Type: BLOOD SPECIMENOrdering Facility: [facility] Address: [address] [place] [address] Result Comment: Karyn mated Glomerular Filtration Rate [...] actual GFR. Performed By: #### 2 4323-8 ####[facility] LABIA [id number] [place] [address] [place] Glucose [Mass/Vol] 88 mg/dL Normal 74-99 [facility] Comment on above: Order Comment: Speci men Type: BLOOD SPECIMENOrdering Facility: [facility] Address: [address] [place] [address] Result Comment: The [place] Diabetes Association (ADA) provides guidance for cutoff [...] Standards of Medical Care in Diabetes 2016, [place] [employer]. Diabetes Care. 2016.39(Suppl 1). Performed By: #### 2 4323-8 ####[facility] LABCLIA [id number] [place] [address] [place] Potassium [Moles/Vol] 3.7 mmol/L Normal 3.7-5.1 [facility] Comment on above: Order Comment: Speci men Type: BLOOD SPECIMENOrdering Facility: [facility] Address: [address] [place] [address] Performed By: #### 2 4323-8 ####[facility] LABCLIA [id number] [place] [address] [place] Protein [Mass/Vol] 7.1 g/dL Normal 6.3-8.0 [facility] Comment on above: Order Comment: Speci men Type: BLOOD SPECIMENOrdering Facility: [facility] Address: [address] [place] [address] Performed By: #### 2 4323-8 ####[facility] LABCLIA [id number] [place] [address] [place] Sodium [Moles/Vol] 143 mmol/L Normal 136-144 [facility] Comment on above: Order Comment: Speci men Type: BLOOD SPECIMENOrdering Facility: [facility] Address: [address] [place] [address] Performed By: #### 2 4323-8 ####[facility] LABCLIA [id number] [place] [address] [place] Urea nitrogen [Mass/Vol] 17 mg/dL Normal 7-21 [facility] Comment on above: Order Comment: Speci men Type: BLOOD SPECIMENOrdering Facility: [facility] Address: [address] [place] [address] Performed By: #### 2 4323-8 ####[facility] LABCLIA [id number] [place] [id number] [place] IgG SerPl-mCncon 05-22-2023 IgG [Mass/Vol] 954 mg/dL Normal 700-1600 [facility] Comment on above: Order Comment: Speci men Type: BLOOD SPECIMENOrdering Facility: [facility] Address: [address] [place] [address] Performed By: #### 2 465-3, 2472-9 ####[facility] LABIA [id number] [place] [address] [place] IgM SerPl-mCncon 05-22-2023 IgM [Mass/Vol] 74 mg/dL Normal 40-230 [facility] Comment on above: Order Comment: Speci men Type: BLOOD SPECIMENOrdering Facility: [facility] Address: [address] [place] [address] Performed By: #### 2 465-3, 2472-9 ####[facility] LABCLIA [id number] [place] [address] [place] So 05-14-2023 JASMIN Telephone (DARLINQ) ANUPAMA VASQUEZ ([id number]) 1970 F Date Time Provider Department 05/14/23 [...] MICHELLE LUJAN on 05/14/23 Normal [facility] PREG HCG QUALon 09-21-2022 , QUAL Negative Normal NEGATIVE [facility] Comment on above: Performed By: #### P REG #### [facility] [address] [place] [address] Dr. Angel Li [facility]MMUN[facility]UL[facility] Immunoglobulin G, Qn, Serum 1032 mg/dL Normal 586-1602 [facility] Comment on above: Performed By: #### I MIGGQN #### [facility] [address] [place] [address] [address] Angel Li IMMUNOGLOBULIN IGM QUANTITAT IVEon 06-06-2022 Immunoglobulin M, Qn, Serum 46 mg/dL Normal 26-217 [facility] Comment on above: Performed By: #### I MIGMQN #### [facility] [address] [place] [address] Dr. Angel Li CBC AUTO DIFFon 06-05-2022 BASO # 0.0 103/ul Normal 0.0-0.1 [facility] Comment on above: Performed By: #### C BC #### [facility] [address] [place] [address] Dr. Angel Li Basophils/100 WBC (Bld) 0.5 % Normal 0.2-2.0 [facility] Comment on above: Performed By: #### C BC #### [facility] [address] [place] [address] Dr. Angel Li EO # 0.2 103/ul Normal 0.0-0.7 [facility] Comment on above: Performed By: #### C BC #### [facility] [address] [place] [address] Dr. Angel Li Eosinophils/100 WBC (Bld) 2.6 % Normal 0.9-7.0 [facility] Comment on above: Performed By: #### C BC #### [facility] [address] [place] [address] Dr. Angel Li Erythrocyte distribution width (RBC) [Ratio] 14.5 % Normal 11.0-15.0 [facility] Comment on above: Performed By: #### C BC #### [facility] [address] [place] [address] Dr. Angel Li Hematocrit (Bld) [Volume fraction] 36.5 % Normal 36.0-48.0 [facility] Comment on above: Performed By: #### C BC #### [facility] [address] [place] [address] Dr. Angel Li Hemoglobin (Bld) [Mass/Vol] 11.8 g/dL Critically low 12.0-16.0 [facility] Comment on above: Performed By: #### C BC #### [facility] [address] [place] [address] Dr. Angel Li IG # 0.03 10e3/ul Normal 0.00-0.03 [facility] Comment on above: Performed By: #### C BC #### [facility] [address] [place] [address] Dr. Angel Li IG % 0.4 % Normal 0.0-0.5 [facility] Comment on above: Performed By: #### C BC #### [facility] [address] [place] [address] Dr. Angel Li LYMPH # 0.8 103/ul Critically low 1.2-3.8 [facility] Comment on above: Performed By: #### C BC #### [facility] [address] [place] [address] Dr. Angel Li Lymphocytes/100 WBC (Bld) 9.8 % Critically low 20.5-60.0 [facility] Comment on above: Performed By: #### C BC #### [facility] [address] [place] [address] Dr. Angel Li MANUAL DIFF REQ NO Normal [facility] Comment on above: Performed By: #### C BC #### [facility] [address] [place] [address] Dr. Angel Li MCH (RBC) [Entitic mass] 29.0 pg Normal 26.7-34.0 [facility] Comment on above: Performed By: #### C BC #### [facility] [address] [place] [address] Dr. nAgel Li MCHC (RBC) [Mass/Vol] 32.3 g/dL Normal 29.9-35.2 [facility] Comment on above: Performed By: #### C BC #### [facility] [address] [place] [address] Dr. Angel Li MCV (RBC) [Entitic vol] 89.7 fL Normal 81.0-99.0 [facility] Comment on above: Performed By: #### C BC #### [facility] [address] [place] [address] Dr. Angel Li MONO # 1.0 103/ul Critically high 0.3-0.8 [facility] Comment on above: Performed By: #### C BC #### [facility] [address] [place] [address] Dr. Angel Li Monocytes/100 WBC (Bld) 13.0 % Critically high 1.7-12. 0 [facility] Comment on above: Performed By: #### C BC #### [facility] [address] [place] [address] Dr. Angel Li NEUT # 5.9 103/ul Normal 1.4-6.5 [facility] Comment on above: Performed By: #### C BC #### [facility] [address] [place] [address] Dr. Angel Li Neutrophils/100 WBC (Bld) 73.7 % Normal 43.0-75.0 [facility] Comment on above: Performed By: #### C BC #### [facility] [address] [place] [address] Dr. Angel Li Platelet mean volume (Bld) [Entitic vol] 11.6 fL Normal 9.5-13.5 [facility] Comment on above: Performed By: #### C BC #### [facility] [address] [place] [address] Dr. Angel Li PLT 200 103/ul Normal 150-450 [facility] Comment on above: Performed By: #### C BC #### [facility] [address] [place] [address] Dr. Angel Li RBC 4.07 106/ul Critically low 4.20-5.40 [facility] Comment on above: Performed By: #### C BC #### [facility] [address] [place] [address] Dr. Angel Li WBC 8.0 103/ul Normal 4.0-11.0 [facility] Comment on above: Performed By: #### C BC #### [facility] [address] [place] [address] Dr. Angel Li PROF 14(COMP METB)on 023 Albumin [Mass/Vol] 3.4 g/dL Normal 3.4-5.0 [facility] Comment on above: Performed By: #### C MP #### [facility] [address] [place] [address] Dr. Angel Li Albumin/Globulin [Mass ratio] 0.9 {ratio} Normal [facility] Comment on above: Performed By: #### C MP #### [facility] [address] [place] [address] Dr. Angel Li ALP [Catalytic activity/Vol] 122 U/L Critically high 46-116 [facility] Comment on above: Performed By: #### C MP #### [facility] [address] [place] [address] Dr. Angel Li ALT [Catalytic activity/Vol] 35 U/L Normal 14-59 [facility] Comment on above: Performed By: #### C MP #### [facility] [address] [place] [address] Dr. Angel Li Anion gap [Moles/Vol] 9.7 mmol/L Normal [facility] Comment on above: Performed By: #### C MP #### [facility] [address] [place] [address] Dr. Angel Li AST [Catalytic activity/Vol] 32 U/L Normal 15-37 [facility] Comment on above: Performed By: #### C MP #### [facility] [address] [place] [address] Dr. Angel Li Bilirubin [Mass/Vol] 0.4 mg/dL Normal 0.2-1.0 [facility] Comment on above: Performed By: #### C MP #### [facility] [address] [place] [address] Dr. Angel Li Calcium [Mass/Vol] 9.0 mg/dL Normal 8.5-10.1 [facility] Comment on above: Performed By: #### C MP #### [facility] [address] [place] [address] Dr. Angel Li Chloride [Moles/Vol] 103 mmol/L Normal 98-107 [facility] Comment on above: Performed By: #### C MP #### [facility] [address] [place] [address] Dr. Angel Li CO2 [Moles/Vol] 32.3 mmol/L Critically high 21.0-32.0 [facility] Comment on above: Performed By: #### C MP #### [facility] [address] [place] [address] [address] Angel Li Creatinine [Mass/Vol] 0.97 mg/dL Normal 0.55-1.02 [facility] Comment on above: Performed By: #### C MP #### [facility] [address] [place] [address] [address] Angel Li EGFR-AF CITIZEN [place] >60 Normal >=60 [facility] Comment on above: Performed By: #### C MP #### [facility] [address] [place] [address] [address] Angel Li EGFR-NON AF CITIZEN OF [place] =60 Normal >=60 [facility] Comment on above: Performed By: #### C MP #### [facility] [address] [place] [address] Dr. Angel iL Globulin (S) [Mass/Vol] 3.7 g/dL Normal T [facility] Comment on above: Performed By: #### C MP #### [facility] [address] [address] [address] Angel Li Glucose [Mass/Vol] 87 mg/dL Normal 74-106 [facility] Comment on above: Performed By: #### C MP #### [facility] [address] [address] [address] Angel Li Potassium [Moles/Vol] 4.0 mmol/L Normal 3.5-5.1 [facility] Comment on above: Performed By: #### C MP #### [facility] [address] [place] [address] [address] Angel Li Protein [Mass/Vol] 7.1 g/dL Normal 6.4-8.2 [facility] Comment on above: Performed By: #### C MP #### [facility] [address] [address] [address] Angel Li Sodium [Moles/Vol] 141 mmol/L Normal 136-145 [facility] Comment on above: Performed By: #### C MP #### [facility] [address] [place] [address] [address] Angel Li Urea nitrogen [Mass/Vol] 11.0 mg/dL Normal 7.0-18.0 [facility] Comment on above: Performed By: #### C MP #### [facility] [address] [address] [address] Angel Li Urea nitrogen/Creatinine [Mass ratio] 11.3 mg/mg Normal [facility] Comment on above: Performed By: #### C MP #### [facility] [address] [place] [address] Dr. Angel Li PAP ACOG PANEL 2: 30 to 65on 03-13-2022 . . Normal [facility] Comment on above: Result Comment: Perf ormed at: WB Performed By: #### 4 [id number] #### [facility] [address] [place] [address] Dr. Angel Li Age Gdln ACOG Testing - Normal [facility] Comment on above: Performed By: #### 4 [id number] #### [facility] [address] [place] [address] Dr. Angel Li DIAGNOSIS: Comment Normal [facility] Comment on above: Result Comment: NEGA TIVE FOR INTRAEPITHELIAL LESION OR MALIGNANCY. Performed at: WB Performed By: #### 4 [id number] #### [facility] [address] [place] [address] Dr. Angel iL HPV Aptima Negative Normal Negative [facility] Comment on above: Result Comment: This nucleic acid amplification test detects fourteen high-risk HPV types (16,18,31,33,35,39,45,51,52,56,58,59,66,68) without differentiation. Performed at: =G Performed By: #### 4 [id number] #### [facility] [address] [place] [address] Dr. Angel Li Methodology: Comment Normal [facility] Comment on above: Result Comment: This liquid based ThinPrep(R) pap test was screened with the use of an image guided system. Performed at: WB Performed By: #### 4 [id number] #### [facility] [address] [place] [address] Dr. Angel Li Note: Comment Normal [facility] Comment on above: Result Comment: The Pap smear is a screening test designed to aid in the detection of premalignant and malignant conditions of the uterine cervix. It is not a diagnostic procedure and should not be used as the sole means of detecting cervical cancer. Both false-positive and false-negative reports do occur. . Performed at: WB Performed By: #### 4 [id number] #### [facility] [address] [place] [address] Dr. Angel Li Performed by: Comment Normal [facility] Comment on above: Result Comment: Shyanne Back, Technical Support Engineer (ASCP) Performed at: WB Performed By: #### 4 [id number] #### [facility] [address] [place] [address] Dr. Angel Li Specimen adequacy: Comment Normal [facility] Comment on above: Result Comment: Sati sfactory for evaluation. Endocervical and/or squamous metaplastic cells (endocervical component) are present. Performed at: WB Performed By: #### 4 [id number] #### [facility] [address] [place] [address] Dr. Angel Li VAGINITIS/VAGINOSIS DNA PROB Marcelino 03-08-2022 Gracia species Negative Normal Negative [facility] Comment on above: Performed By: #### V AGINT #### [facility] [address] [place] [address] Dr. Angel Li Gardnerella vaginalis Positive Abnormal Negative [facility] Comment on above: Performed By: #### V AGINT #### [facility] [address] [place] [address] Dr. Angel Li Trichomonas vaginalis Negative Normal Negative [facility] Comment on above: Performed By: #### V AGINT #### [facility] [address] [place] [address] Dr. Angel Li BRAIN & CERVICAL SPINE MRI D [facility] 11-14-2021 Brain Enhancing Lesions None C [facility] Brain Interval Improvement None [facility] Brain New T2 Lesions [facility] Brain Other Significant MRI Findings None. [facility] Brain Parenchymal Volume Loss None [facility] Brain T2 [place] of Disease Moderate [facility] MRI BRAIN WO/W IVCONon 11-14 [facility] CBC W Auto Differential pane l (Bld)on 09-18-2021 Abs Immature Gran <0.03 <0.10 k/uL [facility] Basophils (Bld) [#/Vol] 0.03 10*3/uL <0.11 k/uL [facility] Basophils/100 WBC (Bld) 0.5 % C [facility] Differential cell count method Nom (Bld) Auto [facility] Eosinophils (Bld) [#/Vol] 0.15 10*3/uL <0.46 k/uL [facility] Eosinophils/100 WBC (Bld) 2.4 % [facility] Erythrocyte distribution width (RBC) [Ratio] 14.2 % 11.5 - 15.0 % [facility] Hematocrit (Bld) [Volume fraction] 41.5 % 36.0 - 46.0 % [facility] Hemoglobin (Bld) [Mass/Vol] 12.9 g/dL 11.5 - 15.5 g/dL [facility] Immature Gran % 0.3 % [facility] Lymphocytes (Bld) [#/Vol] 0.60 10*3/uL Low 1.00 - 4.00 k/uL [facility] Lymphocytes/100 WBC (Bld) 9.7 % [facility] MCH (RBC) [Entitic mass] 29.3 pg 26. 0 - 34.0 pg [facility] MCHC (RBC) [Mass/Vol] 31.1 g/dL 30.5 - 36.0 g/dL [facility] MCV (RBC) [Entitic vol] 94.3 fL 80.0 - 100.0 fL [facility] Monocytes (Bld) [#/Vol] 0.74 10*3/uL <0.87 k/uL [facility] Monocytes/100 WBC (Bld) 12.0 % C [facility] Neutrophils (Bld) [#/Vol] 4.62 10*3/uL 1.45 - 7.50 k/uL [facility] Neutrophils/100 WBC (Bld) 75.1 % [facility] Nucleated RBC (Bld) [#/Vol] 10*3/uL <0.01 k/uL [facility] Nucleated RBC/100 WBC (Bld) [Ratio] 0.0 /100 WBC [facility] Platelet mean volume (Bld) [Entitic vol] 12.5 fL 9.0 - 12.7 fL [facility] Platelets (Bld) [#/Vol] 181 10*3/uL 150 - 400 k/uL [facility] RBC (Bld) [#/Vol] 4.40 10*6/uL 3.90 - 5.20 m/uL [facility] WBC (Bld) [#/Vol] 6.16 10*3/uL 3.70 - 11.00 k/uL [facility] Comprehensive metabolic 2000 panelon 09-18-2021 Albumin [Mass/Vol] 3.8 g/dL Low 3.9 - 4.9 g/dL [facility] ALP [Catalytic activity/Vol] 114 U/L 34 - 123 U/L [facility] ALT [Catalytic activity/Vol] 16 U/L 7 - 38 U/L [facility] Anion gap [Moles/Vol] 11 mmol/L 9 - 18 mmol/L [facility] AST [Catalytic activity/Vol] 21 U/L 13 - 35 U/L [facility] Bilirubin [Mass/Vol] 0.4 mg/dL 0.2 - 1 .3 mg/dL [facility] Calcium [Mass/Vol] 9.0 mg/dL 8.5 - 10. 2 mg/dL [facility] Chloride [Moles/Vol] 102 mmol/L 97 - 10 5 mmol/L [facility] CO2 [Moles/Vol] 25 mmol/L 22 - 30 mmol/L [facility] Creatinine [Mass/Vol] 0.97 mg/dL High 0.58 - 0.96 mg/dL [facility] Estimated Glomerular Filtration Rate 70 mL/min/1.73m >=60 mL/min/1.7 3m [facility] Glucose [Mass/Vol] 60 mg/dL Low 74 - 99 mg/dL [facility] Potassium [Moles/Vol] 4.0 mmol/L 3.7 - 5.1 mmol/L [facility] Protein [Mass/Vol] 7.0 g/dL 6.3 - 8.0 g/dL [facility] Sodium [Moles/Vol] 138 mmol/L 136 - 144 mmol/L [facility] Urea nitrogen [Mass/Vol] 10 mg/dL 7 - 21 mg/dL [facility] LIPID PANEL BASICon 09-19-19 22 Cholesterol [Mass/Vol] 142 mg/dL <200 mg/dL Cl [facility] Cholesterol in HDL [Mass/Vol] 39 mg/dL Low >39 mg/dL [facility] Cholesterol in LDL [Mass/Vol] 72 mg/dL <100 mg/dL [facility] Cholesterol in LDL/Cholesterol in HDL [Mass ratio] 1.85 {ratio} <2.54 [facility] Cholesterol in VLDL [Mass/Vol] 31 mg/dL High <30 mg/dL [facility] Cholesterol non HDL [Mass/Vol] 103 mg/dL <130 mg/dL [facility] Cholesterol.total/Choles terol in HDL [Mass ratio] 3.64 {ratio} <5.10 [facility] Fasting Time 14 hours [facility] Triglyceride [Mass/Vol] 157 mg/dL High <150 mg/dL C [facility] COVID-19 SOFIAOrdered By: Mague Rosa on 09-01-2021 SARS-CoV+SARS-CoV-2 (COVID-19) Ag IA.rapid Ql (Resp) Negative Negative [facility] Comment on above: This is a duplicate Wilma SARS Antigen (ELAINA) result to be used for statistical tracking purpose only. No Panel InformationOrdered By: Liyah Rosa on 09-01-2021 SARS Antigen (LFIA) [facility] CBC W/AUTO DIFFon 05-07-2017 % NEUTROPHILS 69.5 [...] Glucose mass conc 78 mg/dL Normal 70-100 [facility] Comment on above: Result Comment: DIAG NOSTIC THRESHOLDS FOR DIABETES AND IMPAIRED FASTING GLUCOSE (IFG) FASTING PLASMA GLUCOSE NORMAL <100 mg/dL IFG 100-125 mg/dL DIABETES >/= 126 mg/dL Potassium molar conc 4.1 mmol/L Normal 3.5-5.4 [facility] Sodium 144 mmol/L Normal 134-147 [facility] T. PROTEIN 6.8 g/dl Normal 5.8-8.0 [facility] Urea nitrogen 14 mg/dL Normal 10-20 [facility] LIPID PANEL (INCLUDES CALCUL ATED LDL)on 05-07-2017 Cholesterol 172 mg/dL Normal <200 [facility] Cholesterol to HDL Ratio 3.1 {ratio} Normal <5 [facility] HDL-CHOL 56 mg/dl Normal 40-60 [facility] Comment on above: Result Comment: HDL <40 mg/dL IS A RISK FACTOR FOR CORONARY HEART DISEASE. HDL >60 mg/dL IS A NEGATIVE RISK FACTOR FOR CORONARY HEART DISEASE. LDL to HDL Ratio 1.7 Normal <3.5 [employer] LDL-CHOL, CALCULATED 95 mg/dL Normal <130 [facility] Comment on above: Result Comment: LDL CHOLESTEROL REFERENCE RANGE FOR 0-19 YEARS: DESIRABLE <110 mg/dL, BORDERLINE 110-129, HIGH RISK >130 LDL CHOLESTEROL REFERENCE RANGE FOR ADULTS: DESIRABLE <100 mg/dL, BORDERLINE 130-159, HIGH RISK >160REFERENCE RANGES REVISED 10/28/15 ACCORDING TO NCEP GUIDELINES Triglyceride 107 mg/dL Normal <150 [facility] VLDL-CHOL, CALCULATED 21 mg/dL Normal <30 [facility] TSH WITH FT4 REFLEXon 2016 Thyroid stimulating hormone (TSH) 1.480 uIU/mL Normal 0.40-4.40 [facility] Comment on above: Result Comment: [facility] [address] [place], [place] [address]Laboratory Director: Troy Goddard M.D.CLIA No. [id number] CAP Accreditation No. [id number] CARDIOPULMONARY REPORT CLDon 12-24-2016 CARDIOPULMONARY REPORT CLD [facility] ([facility]) [address] [place], [place] [address] [address], [place] [address] [place], [place] [address]Jjzhwdd Name: AUNPAMA VASQUEZ Visit ID: [id number] Record #: [id number] : 1970CC: Frances Aguilera CNP Pulmonary Function [...] seen. Clinical correlation is recommended. Author: CAROL Rao/jerry/[id number] T: 12/24/2016 10:41 cc: Frances Aguilera CNP Electronically Authenticated and Edited by:Jacki Hess MD On 12/31/2016 09:16 AM EDT Normal [facility] Vital Signs Date Time Vital Sign Value Performing Clinician Facility 11-19-2024 15:04-0400 Body height 172.72 cm Tripp Gruber MD Work Phone: [facility] 11-19-2024 15:04-0400 Body mass index (BMI) [Ratio] 38 kg/m2 Tripp Gruber MD Work Phone: [facility] 11-19-2024 15:04-0400 Body temperature 96.3 [degF] Tripp Gruber MD Work Phone: [facility] 11-19-2024 15:04-0400 Body weight 113.39 kg Tripp Gruber MD Work Phone: [facility] 11-19-2024 15:04-0400 Diastolic blood pressure 56 mm[Hg] Tripp Gruber MD Work Phone: [facility] 11-19-2024 15:04-0400 Heart rate 83 /min Tripp Gruber MD Work Phone: [facility] 11-19-2024 15:04-0400 Respiratory rate 18 /min Tripp Gruber MD Work Phone: [facility] 11-19-2024 15:04-0400 SaO2% (BldA) [Mass fraction] 98 % Tripp Gruber MD Work Phone: [facility] 11-19-2024 15:04-0400 Systolic blood pressure 98 mm[Hg] Tripp Gruber MD Work Phone: [facility] 11-12-2024 10:55-0400 Body height 165.1 cm Guillermo Mendoza MD Work Phone: [facility] 11-12-2024 10:55-0400 Body temperature 98.1 [degF] Guillermo Mendoza MD Work Phone: [facility] 11-12-2024 10:55-0400 Diastolic blood pressure 63 mm[Hg] Guillermo Mendoza MD Work Phone: [facility] [employer] [facility] 11-12-2024 10:55-0400 Heart rate 82 /min Guillermo Mendoza MD Work Phone: [facility] [employer] [facility] 11-12-2024 10:55-0400 Respiratory rate 22 /min Guillermo Mendoza MD Work Phone: [facility] [employer] [facility] 11-12-2024 10:55-0400 SaO2% (BldA) [Mass fraction] 100 % Guillermo Mendoza MD Work Phone: [facility] [employer] [facility] 11-12-2024 10:55-0400 Systolic blood pressure 122 mm[Hg] Guillermo Mendoza MD Work Phone: [facility] 11-10-2024 12:30-0400 Body height 165.1 cm Reji Garcia CUSTOMER EXPERIENCE LEADER-INSPECTOR [employer] Work Phone: [facility] [employer] [facility] 11-10-2024 12:30-0400 Body mass index (BMI) [Ratio] 42.1 kg/m2 Reji Garcia CUSTOMER EXPERIENCE LEADER-INSPECTOR [employer] Work Phone: [facility] [employer] [facility] 11-10-2024 12:30-0400 Body weight 114.76 kg Reji Garcia CUSTOMER EXPERIENCE LEADER-INSPECTOR [employer] Work Phone: [facility] 09-28-2024 23:34-0400 Diastolic blood pressure 63 mm[Hg] Julio Fernandez MD Work Phone: [facility] 09-28-2024 23:34-0400 Heart rate 83 /min Julio Fernandez MD Work Phone: [facility] [employer] [facility] 09-28-2024 23:34-0400 Respiratory rate 15 /min Julio Fernandez MD Work Phone: [facility] [employer] [facility] 09-28-2024 23:34-0400 Systolic blood pressure 115 mm[Hg] Julio Fernandez MD Work Phone: [facility] 09-28-2024 20:38-0400 Body temperature 98.1 [degF] Julio Fernandez MD Work Phone: [facility] [employer] [facility] 09-28-2024 20:38-0400 SaO2% (BldA) [Mass fraction] 100 % Julio Fernandez MD Work Phone: [facility] [employer] [facility] 09-28-2024 05:00-0400 Body mass index (BMI) [Ratio] 40.87 kg/m2 Julio Fernandez MD Work Phone: [facility] 09-28-2024 05:00-0400 Body weight 114.8 kg Julio Fernandez MD Work Phone: [facility] 09-25-2024 01:00-0400 Body height 167.6 cm Julio Fernandez MD Work Phone: [facility] 09-19-2024 03:52-0400 SaO2% (BldA) [Mass fraction] 95 % Julio Fernandez MD Work Phone: [facility] 09-19-2024 03:52-0400 SaO2% (BldA) [Mass fraction] 78 % Julio Fernandez MD Work Phone: [facility] 09-19-2024 03:47-0400 SaO2% (BldA) [Mass fraction] 78 % [facility] Comment on above: Performed By: #### PINR #### [facility] ([facility] [address] 09-16-2024 13:14-0400 Body temperature 96.8 [degF] Adonay Molly WOODSINSPECTOR SHELLS Work Phone: [facility] 09-16-2024 13:14-0400 Diastolic blood pressure 85 mm[Hg] Adonay Castillo APRN-INSPECTOR [employer] Work Phone: [facility] 09-16-2024 13:14-0400 Heart rate 74 /min Adonay Molly ANSARI-INSPECTOR [employer]LLS Work Phone: [facility] 09-16-2024 13:14-0400 Systolic blood pressure 147 mm[Hg] Adonay Molly ANSARI-INSPECTOR [employer]LLS Work Phone: [facility] 08-18-2024 09:18-0400 Body mass index (BMI) [Ratio] 44.96 kg/m2 Fred Gracia NP Work Phone: [facility] 08-18-2024 09:18-0400 Body temperature 98.2 [degF] Fred Mesaz PRODUCT DEVELOPMENT Work Phone: [facility] 08-18-2024 09:18-0400 Body weight 122.56 kg Fred Mesaz PRODUCT DEVELOPMENT Work Phone: [facility] 08-18-2024 09:18-0400 Diastolic blood pressure 80 mm[Hg] Fred Mesaz PRODUCT DEVELOPMENT Work Phone: [facility] 08-18-2024 09:18-0400 Heart rate 98 /min Fred Bonitaz PRODUCT DEVELOPMENT Work Phone: [facility] 08-18-2024 09:18-0400 Respiratory rate 24 /min Fred Mesaz PRODUCT DEVELOPMENT Work Phone: [facility] 08-18-2024 09:18-0400 SaO2% (BldA) [Mass fraction] 95 % Fred Mesaz PRODUCT DEVELOPMENT Work Phone: [facility] 08-18-2024 09:18-0400 Systolic blood pressure 110 mm[Hg] Fred Mesaz PRODUCT DEVELOPMENT Work Phone: [facility] 06-17-2024 09:33-0500 Body mass index (BMI) [Ratio] 47.09 kg/m2 Sherrie Boone PRODUCT DEVELOPMENT Work Phone: [facility] 06-17-2024 09:33-0500 Body temperature 97.7 [degF] Sherrie Boone PRODUCT DEVELOPMENT Work Phone: [facility] 06-17-2024 09:33-0500 Body weight 128.37 kg Sherrie Boone PRODUCT DEVELOPMENT Work Phone: [facility] 06-17-2024 09:33-0500 Diastolic blood pressure 82 mm[Hg] Sherrie Boone PRODUCT DEVELOPMENT Work Phone: [facility] 06-17-2024 09:33-0500 Heart rate 100 /min Sherrie Boone PRODUCT DEVELOPMENT Work Phone: [facility] 06-17-2024 09:33-0500 Respiratory rate 16 /min Sherrie Augustink PRODUCT DEVELOPMENT Work Phone: [facility] 06-17-2024 09:33-0500 SaO2% (BldA) [Mass fraction] 97 % Sherrie Augustink PRODUCT DEVELOPMENT Work Phone: [facility] 06-17-2024 09:33-0500 Systolic blood pressure 120 mm[Hg] Sherrie Augustink PRODUCT DEVELOPMENT Work Phone: [facility] 05-18-2024 09:18-0500 Body height 165.1 cm Fred Mesaz PRODUCT DEVELOPMENT Work Phone: [facility] 05-18-2024 09:18-0500 Body mass index (BMI) [Ratio] 46.93 kg/m2 Fred Monikahholz PRODUCT DEVELOPMENT Work Phone: [facility] 05-18-2024 09:18-0500 Body temperature 98.1 [degF] Fred Monikahholz PRODUCT DEVELOPMENT Work Phone: [facility] 05-18-2024 09:18-0500 Body weight 127.91 kg Fredvirginia Frankhholz PRODUCT DEVELOPMENT Work Phone: [facility] 05-18-2024 09:18-0500 Diastolic blood pressure 90 mm[Hg] Fred Monikahholz PRODUCT DEVELOPMENT Work Phone: [facility] 05-18-2024 09:18-0500 Heart rate 81 /min Fred Aichholz PRODUCT DEVELOPMENT Work Phone: [facility] 05-18-2024 09:18-0500 Respiratory rate 19 /min Fred Aichholz PRODUCT DEVELOPMENT Work Phone: [facility] 05-18-2024 09:18-0500 SaO2% (BldA) [Mass fraction] 95 % Fred Aichholz PRODUCT DEVELOPMENT Work Phone: [facility] 05-18-2024 09:18-0500 Systolic blood pressure 144 mm[Hg] Fred Monikareyholz PRODUCT DEVELOPMENT Work Phone: [facility] 04-27-2024 09:03-0500 Body height 165.1 cm [facility] Work Phone: [facility] 04-27-2024 09:03-0500 Body mass index (BMI) [Ratio] 46.43 kg/m2 [facility] Work Phone: [facility] 04-27-2024 09:03-0500 Body weight 126.55 kg [facility] Work Phone: [facility] 03-05-2024 10:04-0400 Body height 165.1 cm Fred Aichholz PRODUCT DEVELOPMENT Work Phone: [facility] 03-05-2024 10:04-0400 Body mass index (BMI) [Ratio] 46.49 kg/m2 Fred Aichholz PRODUCT DEVELOPMENT Work Phone: [facility] 03-05-2024 10:04-0400 Body temperature 97.59 [degF] Fred Monikahholz PRODUCT DEVELOPMENT Work Phone: [facility] 03-05-2024 10:04-0400 Body weight 126.73 kg Fred Aichholz PRODUCT DEVELOPMENT Work Phone: [facility] 03-05-2024 10:04-0400 Diastolic blood pressure 82 mm[Hg] Fred Aichholz PRODUCT DEVELOPMENT Work Phone: [facility] 03-05-2024 10:04-0400 Heart rate 82 /min Fred Aichholz PRODUCT DEVELOPMENT Work Phone: [facility] 03-05-2024 10:04-0400 Respiratory rate 18 /min Fred Aichholz PRODUCT DEVELOPMENT Work Phone: [facility] 03-05-2024 10:04-0400 SaO2% (BldA) [Mass fraction] 97 % Fred Aichholz PRODUCT DEVELOPMENT Work Phone: [facility] 03-05-2024 10:04-0400 Systolic blood pressure 112 mm[Hg] Fred Monikahvicky PRODUCT DEVELOPMENT Work Phone: [facility] 02-25-2024 08:32-0400 Body height 165.1 cm Eliazar Brooks DO Work Phone: [facility] 02-25-2024 08:32-0400 Body mass index (BMI) [Ratio] 48.09 kg/m2 Eliazar Brooks DO Work Phone: [facility] 02-25-2024 08:32-0400 Body weight 131.09 kg Eliazar Brooks DO Work Phone: [facility] 02-10-2024 17:11-0400 Heart rate 82 /min Eliazar Brooks [facility] 02-10-2024 17:11-0400 SaO2% (BldA) [Mass fraction] 94 % Eliazar Brooks [facility] 02-10-2024 17:11-0400 Diastolic blood pressure 89 mm[Hg] Eliazar Brooks [facility] 02-10-2024 17:11-0400 Mean blood pressure 109 mm[Hg] Eliazar Brooks [facility] 02-10-2024 17:11-0400 Systolic blood pressure 148 mm[Hg] Eliazar Brooks [facility] 02-10-2024 17:11-0400 Respiratory rate 16 /min Eliazar Brooks [facility] 02-10-2024 17:11-0400 Body temperature 98.24 [degF] Eliazar Brooks [facility] 02-10-2024 16:06-0400 Heart rate 81 /min Eliazar Brooks [facility] 02-10-2024 16:06-0400 SaO2% (BldA) [Mass fraction] 99 % Eliazar Brooks [facility] 02-10-2024 16:06-0400 Diastolic blood pressure 81 mm[Hg] Eliazar Brooks [facility] 02-10-2024 16:06-0400 Mean blood pressure 98 mm[Hg] Eliazar Zbigniew [facility] 02-10-2024 16:06-0400 Systolic blood pressure 134 mm[Hg] Eliazar Zbigniew [facility] 02-10-2024 16:05-0400 Respiratory rate 16 /min Eliazar Zbigniew [facility] 02-10-2024 16:00-0400 Body temperature 97.52 [degF] Eliazar Brooks [facility] 02-10-2024 16:00-0400 Respiratory rate 22 /min Eliazar Brooks [facility] 02-10-2024 16:00-0400 SaO2% (BldA) [Mass fraction] 95 % Eliazar Zbigniew [facility] 02-10-2024 16:00-0400 Systolic blood pressure 139 mm[Hg] Eliazar Zbigniew [facility] 02-10-2024 15:50-0400 Mean blood pressure 106 mm[Hg] Eliazar Zbigniew [facility] 02-10-2024 15:50-0400 Respiratory rate 24 /min Eliazar Brooks [facility] 02-10-2024 15:45-0400 Respiratory rate 9 /min Eliazar Zbigniew [facility] 02-10-2024 15:37-0400 Blood Pressure Location Eliazar Brooks [facility] 02-10-2024 15:37-0400 Body temperature 97.7 [degF] Eliazar Brooks [facility] 02-10-2024 15:30-0400 Respiratory rate 18 /min Eliazar Brooks [facility] 02-10-2024 12:04-0400 Blood Pressure Location Eliazar Brooks [facility] 02-10-2024 12:04-0400 Mean blood pressure 100 mm[Hg] Eliazar Brooks [facility] 02-10-2024 12:04-0400 Heart rate 94 /min Eliazar Brooks [facility] 02-10-2024 12:03-0400 Body temperature 97.88 [degF] Eliazar Brooks [facility] 02-10-2024 12:03-0400 Blood Pressure Location Eliazar Brooks [facility] 02-03-2024 14:28-0400 Body height 165.1 cm Fredvirginia Gracia PRODUCT DEVELOPMENT Work Phone: [facility] 02-03-2024 14:28-0400 Body mass index (BMI) [Ratio] 48.09 kg/m2 Fred Bonitaz PRODUCT DEVELOPMENT Work Phone: [facility] 02-03-2024 14:28-0400 Body temperature 98.49 [degF] Fred Bonitaz PRODUCT DEVELOPMENT Work Phone: [facility] 02-03-2024 14:28-0400 Body weight 131.09 kg Fred Bonitaz PRODUCT DEVELOPMENT Work Phone: [facility] 02-03-2024 14:28-0400 Diastolic blood pressure 90 mm[Hg] Fred Bonitaz PRODUCT DEVELOPMENT Work Phone: [facility] 02-03-2024 14:28-0400 Heart rate 83 /min Fred Monikahjesicaz PRODUCT DEVELOPMENT Work Phone: [facility] 02-03-2024 14:28-0400 Respiratory rate 18 /min Fred Monikahholz PRODUCT DEVELOPMENT Work Phone: [facility] 02-03-2024 14:28-0400 SaO2% (BldA) [Mass fraction] 93 % Fred Aichholz PRODUCT DEVELOPMENT Work Phone: [facility] 02-03-2024 14:28-0400 Systolic blood pressure 128 mm[Hg] Fred Basil PRODUCT DEVELOPMENT Work Phone: [facility] 01-30-2024 10:45-0400 Body height 165.1 cm Eliazar Brooks DO Work Phone: [facility] 01-30-2024 10:45-0400 Body mass index (BMI) [Ratio] 48.92 kg/m2 Eliazar Brooks DO Work Phone: [facility] 01-30-2024 10:45-0400 Body weight 133.36 kg Eliazar Brooks DO Work Phone: [facility] 07-10-2023 15:53-0500 Body height 167.6 cm Paris Paris DO Work Phone: [facility] 07-10-2023 15:53-0500 Body weight 134.26 kg Paris Paris DO Work Phone: [facility] 07-10-2023 15:53-0500 Heart rate 89 /min Paris Paris DO Work Phone: [facility] 07-10-2023 15:53-0500 SaO2% (BldA) [Mass fraction] 97 % Paris Paris DO Work Phone: [facility] 06-26-2023 11:34-0500 Body height 165.1 cm Shaikh Jonn BENITEZ Work Phone: [facility] 06-26-2023 11:34-0500 Body mass index (BMI) [Ratio] 48.09 kg/m2 Shaikh Jonn BENITEZ Work Phone: [facility] 06-26-2023 11:34-0500 Body temperature 98.6 [degF] Shaikh Jonn BENITEZ Work Phone: [facility] 06-26-2023 11:34-0500 Body weight 131.09 kg Shaikh Jonn BENITEZ Work Phone: [facility] 06-26-2023 11:34-0500 Diastolic blood pressure 80 mm[Hg] Shaikh Jonn BENITEZ Work Phone: [facility] 06-26-2023 11:34-0500 Heart rate 77 /min Shaikh Jonn BENITEZ Work Phone: [facility] 06-26-2023 11:34-0500 SaO2% (BldA) [Mass fraction] 96 % Shaikh Jonn BENITEZ Work Phone: [facility] 06-26-2023 11:34-0500 Systolic blood pressure 136 mm[Hg] Shaikh Jonn BENITEZ Work Phone: [facility] 04-18-2022 10:30-0500 Body height 173.99 cm Liyah Rosa Other [employer] Other 04-18-2022 10:30-0500 Body mass index (BMI) [Ratio] 46.68 kg/m2 Liyah Rosa Other [employer] Other 04-18-2022 10:30-0500 Body weight 141.34 kg Liyah Rosa Other [employer] Other 04-18-2022 10:30-0500 Diastolic blood pressure 89 mm[Hg] Liyah Rosa Other [employer] Other 04-18-2022 10:30-0500 Systolic blood pressure 129 mm[Hg] Liyah Rosa Other [employer] Other 03-22-2022 12:54-0400 Body height 172.7 cm Jessica Clarke PA-C Work Phone: [facility] 03-22-2022 12:54-0400 Body weight 131.54 kg Jessica Young PA-C Work Phone: [facility] 03-22-2022 12:54-0400 Diastolic blood pressure 76 mm[Hg] Jessica Young PA-C Work Phone: [facility] 03-22-2022 12:54-0400 Heart rate 108 /min Jessica Young PA-C Work Phone: [facility] 03-22-2022 12:54-0400 Systolic blood pressure 129 mm[Hg] Jessica Young PA-C Work Phone: [facility] 03-22-2022 09:30-0400 Body temperature 97 [degF] Infusion 10 Work Phone: [facility] 03-22-2022 09:30-0400 Diastolic blood pressure 83 mm[Hg] Infusion 10 Work Phone: [facility] 03-22-2022 09:30-0400 Heart rate 79 /min Infusion 10 Work Phone: [facility] 03-22-2022 09:30-0400 Systolic blood pressure 152 mm[Hg] Infusion 10 Work Phone: [facility] 12-13-2021 10:30-0400 Body height 173.99 cm Liyah Rosa Other [employer] [facility] [employer] Other 12-13-2021 10:30-0400 Body mass index (BMI) [Ratio] 45.55 kg/m2 Liyah Rosa Other [employer] Other 12-13-2021 10:30-0400 Body weight 137.89 kg Liyah Rosa Other [employer] Other 11-14-2021 08:42-0400 Body height 174 cm Jessica Young PA-C Work Phone: [facility] 11-14-2021 08:42-0400 Body weight 132 kg Jessica Young PA-C Work Phone: [facility] 11-14-2021 08:42-0400 Diastolic blood pressure 68 mm[Hg] Jessica IBANEZ-C Work Phone: [facility] 11-14-2021 08:42-0400 Heart rate 88 /min Jessica Clarke PA-C Work Phone: [facility] 11-14-2021 08:42-0400 Systolic blood pressure 112 mm[Hg] Jessica Clarke PA-C Work Phone: [facility] 09-18-2021 12:00-0400 Body temperature 97.9 [degF] Infusion 2 Work Phone: [facility] 09-18-2021 12:00-0400 Diastolic blood pressure 89 mm[Hg] Infusion 2 Work Phone: [facility] 09-18-2021 12:00-0400 Heart rate 93 /min Infusion 2 Work Phone: [facility] 09-18-2021 12:00-0400 Respiratory rate 16 /min Infusion 2 Work Phone: [facility] 09-18-2021 12:00-0400 Systolic blood pressure 131 mm[Hg] Infusion 2 Work Phone: [facility] 09-18-2021 08:00-0400 Body height 174 cm Infusion 2 Work Phone: [facility] 09-18-2021 08:00-0400 Body weight 117.94 kg Infusion 2 Work Phone: [facility] 09-05-2021 10:45-0400 Diastolic blood pressure 68 mm[Hg] Services [facility] Work Phone: [facility] 09-05-2021 10:45-0400 Heart rate 91 /min Services [facility] Work Phone: [facility] 09-05-2021 10:45-0400 Respiratory rate 18 /min Services [facility] Work Phone: [facility] 09-05-2021 10:45-0400 SaO2% (BldA) [Mass fraction] 99 % Services [employer] Phone: [facility] 09-05-2021 10:45-0400 Systolic blood pressure 122 mm[Hg] Services [employer] Phone: [facility] 09-05-2021 08:26-0400 Body height 173.99 cm Services [employer] Phone: [facility] 09-05-2021 08:26-0400 Body mass index (BMI) [Ratio] 43.4 kg/m2 Services [employer] Phone: [facility] 09-05-2021 08:26-0400 Body temperature 98.2 [degF] Services [employer] Phone: [facility] 09-05-2021 08:26-0400 Body weight 131.54 kg Services [employer] Phone: [facility] 08-14-2021 11:30-0400 Body height 173.99 cm Liyah Rosa Other [facility] Other 08-14-2021 11:30-0400 Body mass index (BMI) [Ratio] 43.45 kg/m2 Liyah Rosa Other [facility] Other 08-14-2021 11:30-0400 Body weight 131.54 kg Liyah Rosa Other [facility] Other Encounters Encounter Date Encounter Type Care Provider Facility Start: 02-17-2025 ambulatory Silvia Bustos Facility:[facility] Start: 11-27-2024 End: 11-27-2024 Orders Only [facility] - Radiation Oncology Start: 11-24-2024 End: 11-24-2024 Documentation procedure Priyanka [facility] [place] - Medical Oncology Start: 11-24-2024 End: 11-24-2024 ambulatory HENRY MATTHEWS Facility:[facility] Start: 11-24-2024 End: 11-24-2024 Patient encounter procedure REGINA MATTHEWS [facility] Start: 11-19-2024 End: 11-19-2024 Patient encounter procedure Storm Chapman MD -[facility] Ne[facility] Work Phone: Start: 11-19-2024 End: 11-19-2024 ambulatory NON STAFF [facility] Work Phone: Comment on above: GBM (glioblastoma mu ltiforme) ([facility]-HCC) (Primary Dx) Start: 11-19-2024 ambulatory [facility] Start: 11-13-2024 End: 11-13-2024 Telephone encounter Guillermo Mendoza MD Work Phone: [facility] - Radiation Oncology Start: 11-13-2024 End: 11-13-2024 ambulatory [facility] Start: 11-13-2024 End: 11-13-2024 ambulatory [facility] Start: 11-13-2024 End: 11-13-2024 [facility] Start: 11-12-2024 End: 11-12-2024 Office outpatient new 60 minutes Guillermo Mendoza MD Work Phone: Meera Alves [facility] - Medical Oncology Comment on above: GBM (glioblastoma mu ltiforme) ([facility]-HCC) (Primary Dx) Start: 11-12-2024 End: 11-12-2024 Orders Only Nancy Hernandez RN [facility] - Radiation Oncology Comment on above: Glioblastoma ([facility]-HC C) (Primary Dx) Start: 11-11-2024 End: 11-11-2024 Telephone encounter Ellie Coleman CMA [facility] Hematology Oncology, A Department of [facility] Comment on above: office note Received referral Ra diation consult lvm Start: 11-10-2024 End: 11-10-2024 Postop follow up visit related to original px Reji Garcia CUSTOMER EXPERIENCE LEADER-INSPECTOR SHELLS Work Phone: [facility] Comment on above: Brain tumor ([facility]-HCC ) (Primary Dx); Double vision Start: 11-10-2024 End: 11-10-2024 [facility] Start: 11-07-2024 End: 11-07-2024 Clinisync [...] Start: 10-17-2024 End: 10-17-2024 ambulatory Alonzo Holguin [facility] Work Phone: Start: 10-17-2024 End: 10-17-2024 Departed Referred Tripp Gruber MD Work Phone: [facility] Start: 10-09-2024 End: 10-09-2024 ambulatory HENRY MATTHEWS Facility: [place] Start: 10-06-2024 ambulatory Eliazar Brooks Facility :[facility] [place] Start: 09-29-2024 End: 09-29-2024 Telephone encounter Anya Soni RN [facility] Comment on above: incision Start: 09-19-2024 End: 09-19-2024 ambulatory UNKNOWN PROVIDER Facility:[facility] Start: 09-18-2024 End: 09-29-2024 Evaluation and management of inpatient Lewis Botello Work Phone: [facility] - GEN 9 Acute Start: 09-18-2024 End: 09-18-2024 Clinisync Result Encounter Sary Colin MD Work Phone: [facility] External Department Unsolicited Start: 09-18-2024 End: 09-18-2024 Clinisync Result Encounter Sary Colin MD Work Phone: [facility] External Department Unsolicited Start: 09-16-2024 End: 09-16-2024 ambulatory ADONAY CASTILLO [facility] Start: 09-16-2024 End: 09-16-2024 Office outpatient new 20 minutes Adonay Castillo CUSTOMER EXPERIENCE LEADER-INSPECTOR SHELLS Work Phone: [facility] Comment on above: Dermatitis associate d with moisture (Primary Dx); Pressure injury of left buttock, stage 2 ([facility]) Start: 08-28-2024 End: 09-01-2024 Emergency department patient visit MUNIRA HARO [facility] Start: 08-28-2024 End: 09-01-2024 Evaluation and management of inpatient [facility] Start: 08-23-2024 End: 08-25-2024 Clinisync Result Encounter Generic External Data Provider [facility] External Department Unsolicited Start: 08-23-2024 End: 08-25-2024 Clinisync Result Encounter Generic External Data Provider [facility] External Department Unsolicited Start: 08-23-2024 End: 08-23-2024 Refill Fred Tellezvicky PRODUCT DEVELOPMENT Work Phone: [facility] Comment on above: 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 (Primary Dx); Yeast dermatitis Start: 08-22-2024 End: 08-22-2024 ambulatory Tripp Gruber [facility] Work Phone: Start: 08-22-2024 End: 08-22-2024 Departed Referred Tripp Gruber MD Work Phone: [facility] Start: 08-22-2024 End: 08-23-2024 Clinisync Result Encounter Generic External Data Provider [facility] External Department Unsolicited Start: 08-22-2024 End: 08-23-2024 Clinisync Result Encounter Generic External Data Provider [facility] External Department Unsolicited Start: 08-18-2024 End: 08-18-2024 Bamboo flowsheet Fred Bonitaz PRODUCT DEVELOPMENT Work Phone: [facility] Start: 08-18-2024 End: 08-18-2024 Bamboo flowsheet Fred Aichholz PRODUCT DEVELOPMENT Work Phone: [facility] Start: 08-18-2024 End: 08-18-2024 Office outpatient visit 25 minutes Fred Bonitaz PRODUCT DEVELOPMENT Work Phone: [facility] Comment on above: Generalized anxiety disorder with panic attacks (CMS/HCC) (Primary Dx); Morbid (severe) obesity due to excess calories (CMS/HCC); Major depressive disorder, recurrent, moderate (CMS/HCC); Primary insomnia Start: 08-18-2024 End: 08-18-2024 ambulatory FRED AICHHOLZ Not Available Start: 08-03-2024 End: 08-03-2024 Telephone encounter Elva Rodriguez PRODUCT DEVELOPMENT Work Phone: [facility] Start: 07-07-2024 End: 07-07-2024 Bamboo flowsheet Fred Aichholz PRODUCT DEVELOPMENT Work Phone: [facility] Start: 07-07-2024 End: 07-07-2024 Bamboo flowsheet Fred Aichholz PRODUCT DEVELOPMENT Work Phone: [facility] Start: 07-07-2024 End: 07-07-2024 ambulatory FRED AICHHOLZ Not Available Start: 06-30-2024 End: 06-30-2024 Clinisync Result Encounter Fred Bonitaz PRODUCT DEVELOPMENT Work Phone: [facility] External Department Unsolicited Start: 06-30-2024 End: 06-30-2024 Clinisync Result Encounter Fred Monikacaitiez PRODUCT DEVELOPMENT Work Phone: [facility] External Department Unsolicited Start: 06-17-2024 End: 01-29-2025 Bamboo flowsheet Sherrie Boone PRODUCT DEVELOPMENT Work Phone: [facility] Start: 06-17-2024 End: 06-17-2024 Bamboo flowsheet Sherrie Boone PRODUCT DEVELOPMENT Work Phone: [facility] Start: 06-17-2024 End: 06-17-2024 Office outpatient visit 10 minutes Sherrie Augustink PRODUCT DEVELOPMENT Work Phone: [facility] Comment on above: Acute non-recurrent frontal sinusitis (Primary Dx) Start: 06-17-2024 End: 06-17-2024 ambulatory SHERRIE CORNEJOTRICK Not Available Start: 05-18-2024 End: 05-18-2024 Bamboo flowsheet Fred Gracia PRODUCT DEVELOPMENT Work Phone: [facility] Start: 05-18-2024 End: 05-18-2024 Bamboo flowsheet Fred Basil PRODUCT DEVELOPMENT Work Phone: [facility] Start: 05-18-2024 End: 05-18-2024 Patient encounter procedure Fredvir[place]ia Gracia PRODUCT DEVELOPMENT Work Phone: [facility] Comment on above: [...] attacks (CMS/HCC) Start: 05-18-2024 End: 05-18-2024 ambulatory FRDE BASIL Not Available Start: 05-07-2024 End: 05-07-2024 Orders Only Jessica Clarke PA-C Work Phone: [facility] Start: 05-04-2024 End: 05-05-2024 Telephone encounter Aria [...] Start: 04-26-2024 End: 04-27-2024 Refill Fred Gracia PRODUCT DEVELOPMENT Work Phone: [facility] Comment on above: Anxiety and depressi on (CMS/HCC) Start: 04-15-2024 End: 04-15-2024 Refill Fred Gracia PRODUCT DEVELOPMENT Work Phone: [facility] Comment on above: Acute cough (Primary Dx) Start: 04-14-2024 End: 04-14-2024 Refill Fred Gracia PRODUCT DEVELOPMENT Work Phone: [facility] Comment on [...] 03-25-2024 End: 03-25-2024 Bamboo flowsheet Inderjit Pelletier LOAN SERVICING REPRESENTATIVE [facility] Start: 03-25-2024 End: 03-25-2024 Bamboo flowsheet Inderjit Pelletier LOAN SERVICING REPRESENTATIVE [facility] Start: 03-25-2024 End: 03-25-2024 ambulatory Inderjit Pelletier LOAN SERVICING REPRESENTATIVE [facility] Comment on above: Left shoulder pain, unspecified chronicity (Primary Dx); S/P arthroscopy of left shoulder Start: 03-13-2024 End: 03-13-2024 Bamboo flowsheet Inderjit Pelletier LOAN SERVICING REPRESENTATIVE [facility] Start: 03-13-2024 End: 03-13-2024 Bamboo flowsheet Inderjit Pelletier LOAN SERVICING REPRESENTATIVE [facility] Start: 03-13-2024 End: 03-13-2024 ambulatory Inderjit Pelletier LOAN SERVICING REPRESENTATIVE [facility] Comment on above: Left [...] Start: 03-06-2024 End: 03-06-2024 ambulatory Inderjit Pelletier LOAN SERVICING REPRESENTATIVE [facility] Comment on above: S/P arthroscopy of l eft shoulder (Primary Dx) Start: 03-05-2024 End: 03-05-2024 Bamboo flowsheet Fred Gracia PRODUCT DEVELOPMENT Work Phone: [facility] Start: 03-05-2024 End: 03-05-2024 Bamboo flowsheet Fred Gracia PRODUCT DEVELOPMENT Work Phone: [facility] Start: 03-05-2024 End: 03-05-2024 Office outpatient visit 15 minutes Fred Gracia PRODUCT DEVELOPMENT Work Phone: [facility] Comment on above: Anxiety and depressi on (CMS/HCC) (Primary Dx); Needs flu shot; Candidiasis of skin Start: 03-05-2024 End: 03-05-2024 ambulatory FRED GRACIA Not Available Start: 03-03-2024 End: 03-03-2024 Bamboo flowsheet Inderjit Pelletier LOAN SERVICING REPRESENTATIVE [facility] Start: 03-03-2024 End: 03-03-2024 Bamboo flowsheet Inderjit Pelletier LOAN SERVICING REPRESENTATIVE [facility] Start: 03-03-2024 End: 03-03-2024 ambulatory Inderjit Pelletier LOAN SERVICING REPRESENTATIVE [facility] Comment on above: S/P [...] to same day surgery center Eliazar Brooks [facility] Start: 02-10-2024 End: 02-10-2024 ambulatory Eliazar Brooks Facility:[facility] Start: 02-05-2024 End: 02-05-2024 ambulatory FRANCES AGUILERA Facility:[facility] Start: 02-03-2024 End: 02-03-2024 Office outpatient visit 15 minutes Fred Gracia PRODUCT DEVELOPMENT Work Phone: [facility] Comment on above: Diverticulitis (Prim donna Dx); Class 3 severe obesity without serious comorbidity with body mass index (BMI) of 45.0 to 49.9 in adult, unspecified obesity type (CMS/HCC) Start: 02-03-2024 End: 02-03-2024 Bamboo flowsheet Fred Gracia PRODUCT DEVELOPMENT Work Phone: [facility] Start: 02-03-2024 End: 02-03-2024 Bamboo flowsheet Fred Gracia PRODUCT DEVELOPMENT Work Phone: [facility] Start: 02-03-2024 [...] 01-29-2024 End: 01-29-2024 Orders Only Fred Gracia PRODUCT DEVELOPMENT Work Phone: [facility] Comment on above: Multiple sclerosis ( CMS/HCC) (Primary Dx) Start: 01-23-2024 End: 01-23-2024 Clinisync Result Encounter Fred Gracia PRODUCT DEVELOPMENT Work Phone: [facility] External Department Unsolicited Start: 01-23-2024 End: 01-23-2024 Clinisync Result Encounter Fred Gracia PRODUCT DEVELOPMENT Work Phone: [facility] External Department Unsolicited Start: 01-23-2024 End: 01-23-2024 ambulatory SHERRIE BOONE Not Available Start: 01-14-2024 End: 01-17-2024 Telephone encounter Jessica Clarke PA-C Work Phone: [facility] Comment on above: Orders Start: 01-06-2024 End: 01-06-2024 ambulatory FRED TELLEZHOLZ Not Available Start: 12-24-2023 End: 01-10-2024 Pre-admission assessment Eliazar Brooks [facility] Start: 12-24-2023 End: 12-24-2023 ambulatory ELIAZAR BROOKS Not Available Start: 12-19-2023 [facility] Work Phone: Infusion Start: 12-02-2023 End: 12-02-2023 ambulatory FRED MONIKAHHOLZ Not Available Start: 11-27-2023 Orders Only Jessica Almodovar Work Phone: [facility] Comment on above: Multiple sclerosis ( HCC) (Primary Dx); Vitamin D deficiency Start: 11-26-2023 Orders Only Sarthak Escobar MD, PhD Work Phone: [facility] Start: 11-13-2023 End: 11-13-2023 ambulatory YAHAIRA D HILLS Not Available Start: 11-05-2023 End: 11-05-2023 ambulatory YAHAIRA D HILLS Not Available Start: 10-10-2023 End: 10-10-2023 ambulatory FRED AICHHOLZ Not Available Start: 10-07-2023 End: 10-07-2023 ambulatory YAHAIRA D HILLS Not Available Start: 09-06-2023 End: 09-06-2023 ambulatory Lashaun IBANEZ-C Work Phone: [facility] Comment on above: Left arm weakness (P rimary Dx) Start: 09-06-2023 End: 09-06-2023 Telemedicine consultation with patient Lashaun Bonus PA-C Work Phone: [facility] Start: 08-22-2023 ambulatory Jessica Saavedra A-C Work Phone: [facility] Comment on above: Spine Start: 08-22-2023 Chart abstracting None (Historical) Neurology Start: 08-21-2023 Telephone encounter Jessica Cabello aline PA-C Work Phone: [facility] Comment on above: Patient Question Start: 08-08-2023 ambulatory ELIAZAR VAZQUEZ [facility] ty:[facility] Start: 07-15-2023 Telephone encounter Jessica Cabello aline PA-C Work Phone: [facility] Comment on above: Orders (Order for MR I needed for Brain and Cervical) Start: 07-10-2023 End: 07-10-2023 ambulatory JESSICA CLARKE Facility:[facility] Start: 07-10-2023 End: 07-10-2023 Patient encounter procedure [...] caregiver Paris E Paris DO Work Phone: [facility] AALIYAH [facility] Start: 06-26-2023 End: 06-26-2023 Office outpatient visit 25 minutes Shaikh Jonn BENITEZ Work Phone: [facility] Comment on above: Multiple sclerosis ( CMS/HCC) (Primary Dx); Primary hypertension (CMS/HCC); Anxiety and depression (CMS/HCC); COPD with exacerbation (CMS/HCC); Non-recurrent acute suppurative otitis media of left ear without spontaneous rupture of tympanic membrane Start: 05-22-2023 End: 05-22-2023 ambulatory SARTHAK ESCOBAR Facility:[facility] Start: 05-02-2023 End: 05-02-2023 ambulatory Jessica Clarke PA-C Work Phone: [facility] Comment on above: Multiple sclerosis ( HCC) (Primary Dx) Start: 05-02-2023 End: 05-02-2023 Telemedicine consultation with patient Jessica Clarke PA-C Work Phone: [facility] Start: 04-22-2023 ambulatory Jessica Clarke P A-C Work Phone: [facility] Comment on above: Skull Start: 04-19-2023 ambulatory Jessica Clarke P A-C Work Phone: [facility] Comment on above: Skull Start: 10-17-2022 ambulatory Valdez Sousa Work Phone: [facility] [place] Start: 10-01-2022 End: 10-01-2022 ambulatory INSPECTOR SHELLS FRED BASIL Facility:[facility] Start: 10-01-2022 ambulatory RUBINA IBARRA BASIL Facil ity:[facility] Start: 09-21-2022 End: 09-21-2022 ambulatory YAHAIRA MCKEON . Facility:[facility] Start: 08-30-2022 Orders Only Jessica Clarke P A-C Work Phone: [facility] Comment on above: Multiple sclerosis, relapsing-remitting (HCC) (Primary Dx) Start: 06-05-2022 End: 06-06-[address] DOCTOR BULL Facility:[facility] Start: 04-18-2022 End: 04-18-2022 ambulatory Liyah Rosa Other [facility] Other Start: 04-18-2022 Office outpatient vi sit 15 minutes Liyah Rosa [facility] Gastroenterology Start: 03-30-2022 Telephone encounter Valdez aleman MD Work Phone: [address] [place] [address] Comment on above: Patient Update Start: 03-22-2022 End: 03-22-2022 Patient encounter procedure Jessica Clarke PA-C Work Phone: [facility] Comment on above: Multiple sclerosis, relapsing-remitting (HCC) (Primary Dx) Start: 03-22-2022 End: 03-22-2022 ambulatory Infusion [facility] 10 Work Phone: Multiple Sclerosis Comment on above: Multiple sclerosis ( HCC) (Primary Dx) Start: 03-16-2022 Orders Only Sarthak Escobar MD, PhD Work Phone: [facility] Start: 03-07-2022 End: 03-07-2022 ambulatory INSPECTOR SHELLS FRED BASIL Facility: Start: 03-06-2022 ambulatory Valdez Sousa Work Phone: [facility] Start: 02-12-2022 Telephone encounter Jessica mireles PA-C Work Phone: Neurology Comment on above: Appointment (Called pt LVM to see about setting up pt and psycology.) Start: 01-16-2022 End: 01-16-2022 ambulatory Jojo Pickard OTR/L Work Phone: [facility]ational [facility] Comment on above: Multiple sclerosis, relapsing-remitting (HCC) Start: 12-13-2021 End: 12-13-2021 ambulatory Liyah Rosa Other [facility] Other Start: 12-13-2021 Office outpatient vi sit 15 minutes Liyah Rosa [facility] Gastroenterology Start: 11-15-2021 ambulatory Valdez Sousa Work Phone: [facility] [place] Start: 11-14-2021 End: 11-14-2021 Patient encounter procedure Jessica Clarke PA-C Work Phone: [facility] Comment on above: Multiple sclerosis, relapsing-remitting (HCC) (Primary Dx) Start: 11-14-2021 End: 11-14-2021 Subsequent hospital visit by physician Cara Manning (I-Stat/3t) Work Phone: Radiology Comment on above: Multiple sclerosis, relapsing-remitting (HCC) [G35] Start: 09-18-2021 End: 09-18-2021 ambulatory Infusion [facility] 2 Work Phone: Multiple Sclerosis Comment on above: Multiple sclerosis ( HCC) (Primary Dx); Multiple sclerosis, relapsing-remitting (HCC) Start: 09-15-2021 End: 09-15-2021 ambulatory Jessica Clarke PA-C Work Phone: [facility] Comment on above: Multiple sclerosis, relapsing-remitting (HCC) Start: 09-15-2021 End: 09-15-2021 Telemedicine consultation with patient Jessica Vince FIGUEROA Work Phone: [facility] Start: 09-14-2021 End: 09-14-2021 ambulatory Liyah Rosa Other [facility] Other Start: 09-14-2021 Telephone encounter Liyah Carlisle ck [facility] [employer]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-Digestive Health Start: 09-01-2021 End: 09-01-2021 Patient encounter procedure Services [facility] Work Phone: [facility] Start: 08-14-2021 End: 08-14-2021 ambulatory Liyah Rosa Other [employer] Other Start: 08-14-2021 Office outpatient ne w 45 minutes Liyah oRsa [facility] Start: 07-28-2020 End: 07-28-2020 Patient encounter procedure Jazmin Shaikh Work Phone: [facility] Work Phone: Start: 12-20-2016 End: 12-21-2016 Ambulatory [facility] Facility:[facility] Start: 11-27-2012 Patient encounter status Jessica Clarke PA-C Work Phone: [facility] Procedures Date Procedure Procedure Detail Performing Clinician Start: 11-10-2024 Follow-up visit Follow-up CINDI GARCIA Start: 11-07-2024 ALL BASIC METABOLIC PANEL Sary Colin MD Work Phone: Start: 10-17-2024 Urine culture Tripp mane MD Work Phone: Start: 10-17-2024 URINE CULTURE - [facility] Ge neric External Data Provider Start: 09-28-2024 Radiologic exam swal low function contrast study Jesi Keila Lewis CUSTOMER EXPERIENCE LEADER-INSPECTOR SHELLS Work Phone: Start: 09-28-2024 Basic metabolic pane l calcium total Sandie IBANEZ Work Phone: Start: 09-27-2024 Basic metabolic pane l calcium total Sandie IBANEZ Work Phone: Start: 09-27-2024 Radiologic exam ches t single view Anjelica Albarado Rubi CUSTOMER EXPERIENCE LEADER-INSPECTOR SHELLS Work Phone: Start: 09-25-2024 Assay of magnesium Maureen Espinal MD Work Phone: Start: 09-25-2024 Basic metabolic pane l calcium total Sandie IBANEZ Work Phone: Start: 09-24-2024 Radiologic exam swal low function contrast study Chip Zarate CUSTOMER EXPERIENCE LEADER-INSPECTOR SHELLS Work Phone: Start: 09-24-2024 Comprehensive metabo lic [...] exam ches t single view Anjelica Venegas CUSTOMER EXPERIENCE LEADER-INSPECTOR SHELLS Work Phone: Start: 09-23-2024 Basic metabolic pane l calcium total Sandie IBANEZ Work Phone: Start: 09-23-2024 REPEATED IQRA Larios MD Work Phone: Start: 09-22-2024 Antibody screen Julio merchant MD Work Phone: Start: 09-22-2024 Antibody screen FRED BISHOP Comment on above: Performed By: #### T NIHS1 #### [facility] ([facility]) [address] [place] [address] VIR Start: 09-22-2024 Blood typing serologic abo Laura Gore CUSTOMER EXPERIENCE LEADER-INSPECTOR SHELLS Work Phone: Start: 09-22-2024 Electrolyte panel Miriam Church MD Work Phone: Start: 09-22-2024 REPEATED NAERey Gore CUSTOMER EXPERIENCE LEADER-INSPECTOR SHELLS Work Phone: Start: 09-22-2024 HC ECHO COMPLETE W CONTRAST Melo Gill PA-C Work Phone: Start: 09-22-2024 Electrolyte panel Miriam Church MD Work Phone: Start: 09-22-2024 Ecg routine ecg w/le ast 12 lds trcg only w/o i&r Anjelica Venegas CUSTOMER EXPERIENCE LEADER-INSPECTOR SHELLS Work Phone: Start: 09-22-2024 Basic metabolic pane l calcium total Sandie IBANEZ Work Phone: Start: 09-22-2024 Drug screen quantita tive vancomycin Anjelica Venegas CUSTOMER EXPERIENCE LEADER-INSPECTOR SHELLS Work Phone: Start: 09-21-2024 Electrolyte panel Miriam Church MD Work Phone: Start: 09-21-2024 Protein electrophore tic fractj&quantj serum Miriam Church MD Work Phone: Start: 09-21-2024 Drug screen quantita tive vancomycin Michelle Petrisor Avasilcai CUSTOMER EXPERIENCE LEADER-INSPECTOR SHELLS Work Phone: Start: 09-21-2024 Electrolyte panel Miriam Church MD Work Phone: Start: 09-21-2024 Basic metabolic pane l calcium total Sandie IBANEZ Work Phone: Start: 09-20-2024 Drug screen quantita tive vancomycin Michelle Petrisor Avasilcai CUSTOMER EXPERIENCE LEADER-INSPECTOR SHELLS Work Phone: Start: 09-20-2024 Electrolyte panel Miriam Church MD Work Phone: Start: 09-20-2024 Radiologic exam abdo men 1 view Steffanie Lozano CUSTOMER EXPERIENCE LEADER-INSPECTOR SHELLS Work Phone: Start: 09-20-2024 Ct abdomen & pelvis w/o contrast material Hiram Jones MD Work Phone: Start: 09-20-2024 Electrolyte panel Miriam Church MD Work Phone: Start: 09-20-2024 End: 09-20-2024 Culture bacterial blood aerobic w/id isolates Steffanie Lozano CUSTOMER EXPERIENCE LEADER-INSPECTOR SHELLS Work Phone: Start: 09-20-2024 Basic metabolic pane l calcium total Sandie IBANEZ Work Phone: Start: 09-20-2024 Mri brain brain stem w/o w/contrast material Chip Zarate CUSTOMER EXPERIENCE LEADER-INSPECTOR SHELLS Work Phone: Start: 09-19-2024 Electrolyte panel Miriam [...] MM TOMOSYNTHESIS SCR EENING BI Fred Tellezvicky PRODUCT DEVELOPMENT Work Phone: Start: 06-30-2024 Mammography Fred Pratima rivera PRODUCT DEVELOPMENT Work Phone: Start: 04-27-2024 Arthrocentesis aspir &/inj major jt/bursa w/us Yahaira Vazquez PA Work Phone: Start: 02-25-2024 Radex shoulder compl ete minimum 2 views Eliazar Brooks DO Work Phone: Start: 02-10-2024 Arthroscopy of shoulder Eliazar Brooks Start: 01-23-2024 [facility] UA (CLEAN/CATCH) MICROSCOPIC IF INDICATE Fred Basil PRODUCT DEVELOPMENT Work Phone: Start: 03-07-2022 Microscopic observat ion [...] Diagnostic endoscopi c examination on colon Services [facility] Work Phone: Start: 09-01-2021 SARS Antigen (LFIA) [facility] Work Phone: Start: 07-28-2020 Imm. administration COVID19 [employer] Jazmin Neel Work Phone: Start: 07-28-2020 SARS-CoV-2 vaccine, 0.5ml [employer] J[employer]min Shaikh Work Phone: Start: 09-17-2012 Mammography Shaikh Ilan gimenez MD Work Phone: Ectopic (disorder) Eliazar Brooks Entire carpal canal (body structure) Eliazar Brooks Ligation of fallopian tube J MAYCO MATTHEWS Plan of Treatment Date Care Activity Detail Author Start: 09-22-2027 Screening for malignant neoplasm of colon [facility] Start: 10-02-2026 DTaP,Tdap and Td Vaccines (2 - Td or Tdap) DTaP,Tdap and Td Vaccines (2 - Td or Tdap) [facility] Start: 10-02-2026 Urine microalbumin profile [facility] Start: 09-18-2026 Lipid 1996 panel - Serum or Plasma Lipid Screening [facility] Start: 09-18-2026 Lipid panel Lipid Screening [facility] Start: 09-18-2026 LIPID SCREEN LIPID SCREEN [facility] Start: 05-22-2026 Diabetes Screening Diabetes Screening [facility] Start: 11-13-2025 Adult BMI Screening Adult BMI Screening [facility] Start: 11-12-2025 Tobacco Screening Tobacco Screening [facility] Start: 11-10-2025 Adult BMI Screening Adult BMI Screening [facility] Start: 11-10-2025 Tobacco Screening Tobacco Screening [facility] Start: 11-08-2025 LIPID SCREEN LIPID SCREEN [facility] Start: 09-28-2025 Adult BMI Screening Adult BMI Screening [facility] Start: 09-23-2025 Tobacco Screening Tobacco Screening [facility] Start: 09-16-2025 Tobacco Screening Tobacco Screening [facility] Start: 09-01-2025 Adult BMI Screening Adult BMI Screening [facility] Start: 06-30-2025 Screening for malignant neoplasm of breast Mammogram [facility] Start: 05-18-2025 Medicare Annual Wellness (AWV) Medicare Annual Wellness (AWV) [facility] Start: 03-07-2025 Screening for malignant neoplasm of cervix [facility] Start: 01-18-2025 Influenza vaccination Influenza Vaccine [facility] Start: 12-14-2024 End: 12-14-2024 Patient encounter procedure 12/14/2024 11:00 AM EDT Office Visit [facility] [place] [address] Laura Gunn MD [facility] [place] [address] [facility] Start: 11-24-2024 End: 11-24-2024 Patient encounter procedure 11/24/2024 1:00 PM EDT Appointment [facility] - Radiation Oncology [address] [place] [address] [facility] - Radiation Oncology Start: 11-13-2024 End: 11-13-2024 Patient encounter procedure [facility] Start: 11-13-2024 End: 11-13-2024 Patient encounter procedure 11/13/2024 10:15 AM EDT Appointment [facility] - MRI Imaging [address] [place] [phone] Richie Sandoval MD [address] [facility] [place] [address] [facility] - MRI Imaging Start: 11-12-2024 End: 11-12-2025 MR Brain WO and W contrast IV MR brain with and without contrast Imaging STAT Glioblastoma ([facility]-HCC) Expected: 11/12/2024, Expires: 11/12/2025 [facility] Work Phone: Comment on above: Expected: 11/12/2024, Expires: Start: 11-12-2024 End: 11-12-2024 Patient encounter procedure 11/12/2024 11:00 AM EDT Office Visit Meera Alves [facility] - Medical Oncology [address] [place] [phone] Guillermo Mendoza MD [address] [facility] [address] [place] [address] [facility] Al[facility] - Medical Oncology Start: 11-10-2024 End: 11-10-2024 ambulatory [facility] Start: 11-10-2024 End: 11-10-2024 Patient encounter procedure 11/10/2024 1:10 PM EDT Office Visit [facility] [address] [place] [address] Jair Espinal MD [address] [address] [facility] Start: 10-17-2024 Bacteria identified in Urine by Culture Urine Culture [facility] Start: 10-17-2024 Urine culture [facility] Start: 10-02-2024 End: 09-28-2025 Void Trial [facility] Work Phone: Start: 09-30-2024 End: 09-30-2024 Patient encounter procedure 09/30/2024 8:40 AM EDT Office Visit [facility] [address] [place] [phone] Fred Gracia NP [address] [place] [phone] [facility] Start: 09-18-2024 DIABETES SCREEN DIABETES SCREEN [facility] Start: 09-18-2024 Diabetes Screening Diabetes Screening [facility] Start: 09-07-2024 End: 09-07-2024 Patient encounter procedure 09/07/2024 8:00 AM EDT Office Visit [facility] [address] [place] [phone] Nasra Horta, PRODUCT DEVELOPMENT [address], [address] [address] [facility] Start: 08-31-2024 End: 08-31-2024 Patient encounter procedure 08/31/2024 10:30 AM EDT Office Visit [facility] [address] [place] [phone] Fred Gracia NP [address] [place] [phone] [facility] Start: 08-22-2024 Urine culture [facility] Start: 08-22-2024 Bacteria identified in Urine by Culture Urine Culture [facility] Start: 08-18-2024 End: 08-18-2024 Patient encounter procedure [facility] Comment on above: Morbid (severe) obesity due to excess ca lories (CMS/HCC) (Primary Dx); Generalized anxiety disorder with panic attacks (CMS/HCC); Major depressive disorder, recurrent, moderate (CMS/HCC) Start: 07-13-2024 End: 07-13-2024 Patient encounter procedure 07/13/2024 9:40 AM EST Office Visit [facility] [address] [phone] Nasra Horta, PRODUCT DEVELOPMENT [address], [address] [address] [facility] Start: 07-07-2024 End: 07-07-2024 Patient encounter procedure 07/07/2024 10:00 AM EST Office Visit [facility] [address] [place] [phone] Fred Gracia NP [address] [place] [phone] Generalized anxiety disorder with panic attacks (CMS/HCC) (Primary Dx); Multiple sclerosis (CMS/HCC); Major depressive disorder, recurrent, moderate (CMS/HCC); Morbid (severe) obesity due to excess calories (CMS/HCC); Body mass index (BMI) 45.0-49.9, adult (CMS/HCC) [facility] Comment on above: Generalized anxiety disorder with panic attacks (CMS/HCC) (Primary Dx); Multiple sclerosis (CMS/HCC); Major depressive disorder, recurrent, moderate (CMS/HCC); Morbid (severe) obesity due to excess calories (CMS/HCC); Body mass index (BMI) 45.0-49.9, adult (CMS/HCC) Start: 07-01-2024 End: 07-01-2024 Patient encounter procedure 07/01/2024 10:00 AM EST Office Visit [facility] [address] [place] [address] Fred Gracia NP [address] [place] [address] [facility] Start: 06-25-2024 End: 06-25-2024 Patient encounter procedure 06/25/2024 8:40 AM EST Office Visit [facility] [address] [place] [address] Fred Gracia NP [address] [place] [address] [facility] Start: 06-17-2024 End: 06-17-2024 Patient encounter procedure 06/17/2024 9:30 AM EST [facility] [address] [place] [address] Sherrie Boone NP [address] [place] [address] Arrived [facility] Comment on above: Arrived Start: 06-08-2024 End: 06-08-2024 Patient encounter procedure 06/08/2024 9:45 AM EST Office Visit [facility] [address] [address] Yahaira Vazquez PA [address] [place] [address] [facility] Start: 05-18-2024 End: 07-17-2025 [...] [facility] [address] [facility] [address] [place] [address] Nasra Horta, PRODUCT DEVELOPMENT [address], [facility] [address] [place] [address] [facility] Start: 05-05-2024 End: 05-05-2024 Patient encounter procedure 05/05/2024 9:40 AM EST Office Visit [facility] [address] [place] [address] Fred Gracia, KIRK [address] [place] [address] [facility] Start: 04-30-2024 Medicare Annual Wellness (AWV) Medicare Annual Wellness (AWV) [facility] Start: 04-29-2024 End: 04-29-2024 Patient encounter procedure 04/29/2024 9:40 AM EST Office Visit [facility] [address] [place] [address] Nasra Horta, PRODUCT DEVELOPMENT [address], [facility] [address] [place] [phone] [facility] Start: 04-27-2024 End: 04-27-2024 Patient encounter procedure [facility] Start: 04-10-2024 End: 04-10-2024 ambulatory 04/10/2024 8:30 AM EST Treatment [facility] [address] [facility] [address] [place] [address] Inderjit Pelletier, LOAN SERVICING REPRESENTATIVE [facility] Start: 04-07-2024 End: 04-07-2024 ambulatory 04/07/2024 9:00 AM EST Treatment [facility] [address] [facility] [address] [place] [address] Aria Kumar, PT [facility] Start: 04-02-2024 End: 04-02-2024 ambulatory 04/02/2024 8:30 AM EST Treatment [facility] [address] [facility] [address] [place] [address] Aria Kumar, PT [facility] Start: 03-17-2024 End: 03-17-2024 ambulatory 03/17/2024 9:00 AM EDT Treatment [facility] [address] [facility] [address] [place] [address] Aria Kumar, PT [facility] Start: 03-13-2024 End: 03-13-2024 ambulatory [facility] Comment on above: Arrived Start: 03-10-2024 End: 03-10-2024 ambulatory 03/10/2024 9:30 AM EDT Treatment [facility] [address] [place] [address] [place] [address] Keli Major, LOAN SERVICING REPRESENTATIVE [facility] Start: 03-06-2024 End: 03-06-2024 ambulatory 03/06/2024 8:30 AM EDT Treatment [facility] [address] [place] [address] Inderjit Pelletier, LOAN SERVICING REPRESENTATIVE [facility] Start: 03-05-2024 End: 03-05-2024 [...] NB ORTH[facility] [address] [place] [facility] [place] [phone] Eliazar Brooks, DO [address] [place] [address] [facility] Start: 02-25-2024 End: 02-25-2024 Patient encounter procedure 02/25/2024 8:15 AM EDT Office Visit [facility] [address] [place] [phone] Eliazar Brooks, DO [address] [place] [address] [facility] Start: 02-10-2024 End: 02-10-2024 [...] NEUR [address] [place] [address] [facility] Start: 01-19-2024 Covid-19 Vaccine ( season) Covid-19 Vaccine ( season) [facility] Start: 01-19-2024 Influenza vaccination Influenza Vaccine (#1) [facility] Start: 12-10-2023 End: 12-10-2023 Patient encounter procedure 12/10/2023 10:30 AM EDT Office Visit [facility] [address] [address] Jessica Clarke PA-C [address] [place] [address] follow up [facility] Comment on above: follow up Start: 11-27-2023 End: 02-26-2024 25-hydroxyvitamin D3 [Mass/volume] in Serum or Plasma VITAMIN D 25 HYDROXY Lab Routine Vitamin D deficiency Expected: 11/27/2023, Expires: 02/26/2024 [facility] Comment on above: Expected: 11/27/2023, Expires: Start: 11-27-2023 End: 02-26-2024 CBC W Auto Differential panel - Blood COMPLETE BLOOD COUNT AND DIFFERENTIAL Lab Routine Multiple sclerosis (HCC) Expected: 11/27/2023, Expires: 02/26/2024 [facility] Work Phone: Comment on above: Expected: 11/27/2023, Expires: Start: 11-27-2023 End: 02-26-2024 Comprehensive metabolic 2000 panel - Serum or Plasma COMPREHENSIVE METABOLIC PANEL Lab Routine Multiple sclerosis ([facility]) Expected: 11/27/2023, Expires: 02/26/2024 [facility] Comment on above: Expected: 11/27/2023, Expires: Start: 11-27-2023 End: 02-26-2024 IgG [Mass/volume] in Serum or Plasma IMMUNOGLOBULIN G Lab Routine Multiple sclerosis ([facility]) Expected: 11/27/2023, Expires: 02/26/2024 [facility] Comment on above: Expected: 11/27/2023, Expires: Start: 11-27-2023 End: 02-26-2024 IgM [Mass/volume] in Serum or Plasma IMMUNOGLOBULIN M Lab Routine Multiple sclerosis ([facility]) Expected: 11/27/2023, Expires: 02/26/2024 [facility] Comment on above: Expected: 11/27/2023, Expires: Start: 11-27-2023 End: 11-27-2023 Patient encounter procedure 11/27/2023 12:00 PM EDT Appointment Radiology [address] [place] [address] Cervical Spine MRI Radiology Comment on above: Cervical Spine MRI Start: 11-09-2023 DIABETES SCREEN DIABETES SCREEN [facility] Start: 09-05-2023 End: 09-05-2023 Patient encounter procedure 09/05/2023 8:40 AM EDT Office Visit [facility] [address] [place] [address] Fred Gracia NP [address] [place] [address] [facility] Start: 07-25-2023 End: 06-26-2024 Pulmonary function testing Pulmonary function testing Imaging Routine COPD with exacerbation ([facility]) Expected: 07/25/2023, Expires: 06/26/2024 [facility] Work Phone: Comment on above: Expected: 07/25/2023, Expires: Start: 06-26-2023 End: 06-26-2024 XR Chest 2 Views XR chest 2 views Imaging Routine COPD with exacerbation (CMS/HCC) Expected: 06/26/2023, Expires: 06/26/2024 [facility] Comment on above: Expected: 06/26/2023, Expires: Start: 06-26-2023 End: 06-26-2023 Patient encounter procedure 06/26/2023 11:30 AM EST Office Visit [facility] [address] [place] [address] Shaikh Lunsford MD [address] [place] [phone] Arrived [facility] Comment on above: Arrived Start: 05-20-2023 Behavioral Health Screening Behavioral Health Screening [facility] Start: 05-20-2023 Depression Assessment Depression Assessment [facility] Start: 01-18-2023 Covid-19 Vaccine ( season) Covid-19 Vaccine ( season) [facility] Start: 01-18-2023 Influenza vaccination [facility] Start: 09-15-2022 Adult depression screening assessment DEPRESSION SCREENING [facility] Start: 08-30-2022 End: 10-30-2022 CBC W Auto Differential panel - Blood CBC + DIFF Lab Routine Multiple sclerosis, relapsing-remitting (HCC) Expected: 08/30/2022, Expires: 10/30/2022 [facility] Work Phone: Comment on above: Expected: 08/30/2022, Expires: Start: 08-30-2022 End: 10-30-2022 Comprehensive metabolic 2000 panel - Serum or Plasma COMP METABOLIC PANEL Lab Routine Multiple sclerosis, relapsing-remitting (HCC) Expected: 08/30/2022, Expires: 10/30/2022 [facility] Work Phone: Comment on above: Expected: 08/30/2022, Expires: 3 Start: 08-30-2022 End: 10-30-2022 IgG [Mass/volume] in Serum or Plasma IGG Lab Routine Multiple sclerosis, relapsing-remitting (HCC) Expected: 08/30/2022, Expires: 10/30/2022 [facility] Work Phone: Comment on above: Expected: 08/30/2022, Expires: 3 Start: 08-30-2022 End: 10-30-2022 IgM [Mass/volume] in Serum or Plasma IGM Lab Routine Multiple sclerosis, relapsing-remitting (HCC) Expected: 08/30/2022, Expires: 10/30/2022 [facility] Work Phone: Comment on above: Expected: 08/30/2022, Expires: 3 Start: 05-20-2022 DEPRESSION ASSESSMENT DEPRESSION ASSESSMENT [facility] Start: 03-22-2022 End: 05-22-2022 CBC W Auto Differential panel - Blood CBC + DIFF Lab Routine Multiple sclerosis, relapsing-remitting (HCC) Expected: 03/22/2022, Expires: 05/22/2022 [facility] Work Phone: Comment on above: Expected: 03/22/2022, Expires: 3 Start: 03-22-2022 End: 05-22-2022 CD19 ABSOLUTE COUNT CD19 ABSOLUTE COUNT Lab Routine Multiple sclerosis ([facility]) Expected: 03/22/2022, Expires: 05/22/2022 [facility] Work Phone: Comment on above: Expected: 03/22/2022, Expires: Start: 03-22-2022 End: 05-22-2022 Comprehensive metabolic 2000 panel - Serum or Plasma COMP METABOLIC PANEL Lab Routine Multiple sclerosis, relapsing-remitting (HCC) Expected: 03/22/2022, Expires: 05/22/2022 [facility] Work Phone: Comment on above: Expected: 03/22/2022, Expires: 3 Start: 03-22-2022 End: 05-22-2022 IgG [Mass/volume] in Serum or Plasma IGG Lab Routine Multiple sclerosis, relapsing-remitting (HCC) Expected: 03/22/2022, Expires: 05/22/2022 [facility] Work Phone: Comment on above: Expected: 03/22/2022, Expires: 3 Start: 03-22-2022 End: 05-22-2022 IgM [Mass/volume] in Serum or Plasma IGM Lab Routine Multiple sclerosis, relapsing-remitting (HCC) Expected: 03/22/2022, Expires: 05/22/2022 [facility] Work Phone: Comment on above: Expected: 03/22/2022, Expires: 3 Start: 01-18-2022 Influenza vaccination [facility] Start: 11-14-2021 End: 01-14-2022 JCV ANTIBODY & INDEX WITH REFLEX [facility] Work Phone: Comment on above: Expected: 11/14/2021, Expires: 2 Start: 09-18-2021 End: 11-18-2021 CD19 ABSOLUTE COUNT [facility] Work Phone: Comment on above: Expected: 09/18/2021, Expires: 2 Start: 09-16-2021 COVID-19 VACCINE (3 - Booster for Yeni series) COVID-19 VACCINE (3 - Booster for Yeni series) [facility] Start: 09-15-2021 End: 11-15-2021 CBC W Auto Differential panel - Blood CBC + DIFF Lab Routine Multiple sclerosis, relapsing-remitting (HCC) Expected: 09/15/2021, Expires: 11/15/2021 [facility] Work Phone: Comment on above: Expected: 09/15/2021, Expires: 2 Start: 09-15-2021 End: 11-15-2021 Comprehensive metabolic 2000 panel - Serum or Plasma COMP METABOLIC PANEL Lab Routine Multiple sclerosis, relapsing-remitting (HCC) Expected: 09/15/2021, Expires: 11/15/2021 [facility] Work Phone: Comment on above: Expected: 09/15/2021, Expires: 2 Start: 09-15-2021 End: 11-15-2021 IMMUNOGLOBULINS KESHAWN IMMUNOGLOBULINS KESHAWN Lab Routine Multiple sclerosis, relapsing-remitting (HCC) Expected: 09/15/2021, Expires: 11/15/2021 [facility] Work Phone: Comment on above: Expected: 09/15/2021, Expires: 2 Start: 09-15-2021 End: 11-15-2021 LIPID PANEL BASIC LIPID PANEL BASIC Lab Routine Multiple sclerosis, relapsing-remitting (HCC) Expected: 09/15/2021, Expires: 11/15/2021 [facility] Work Phone: Comment on above: Expected: 09/15/2021, Expires: 2 Start: 07-13-2021 COVID-19 VACCINE (3 - Booster for Yeni series) COVID-19 VACCINE (3 - Booster for Yeni series) [facility] Start: 05-20-2021 DEPRESSION ASSESSMENT DEPRESSION ASSESSMENT [facility] Start: 2018 Administration of varicella zoster vaccine Zoster (Shingles) Vaccine (1 of 2) [employer] [facility] Start: 2018 Influenza vaccination LUNG CANCER SCREENING [facility] Start: 2018 Pneumococcal Vaccine: 50+ (2 of 2 - PCV) Pneumococcal Vaccine: 50+ (2 of 2 - PCV) [facility] Start: 2018 Screening for malignant neoplasm of lung Lung Cancer Screening [facility] Start: 2018 SHINGRIX VACCINE (1 of 2) SHINGRIX VACCINE (1 of 2) [facility] Start: 09-17-2013 Screening for malignant neoplasm of breast Mammogram [facility] Start: 2013 COLOGUARD (FIT-DNA) COLOGUARD (FIT-DNA) [facility] Start: 2013 Colonoscopy COLONOSCOPY [facility] Start: 2013 COLORECTAL CANCER SCREENING COLORECTAL CANCER SCREENING [facility] Start: [address] COLONOGRAPHY [facility] Start: 2013 FECAL OCCULT BLOOD FECAL OCCULT BLOOD [facility] Start: 2013 Screening for malignant neoplasm of colon [facility] Start: 2013 SIGMOIDOSCOPY SIGMOIDOSCOPY [facility] Start: 2008 Mammography [facility] Start: 2008 Screening for malignant neoplasm of breast Mammogram Screening [facility] Start: 1998 HPV TESTING HPV TESTING [facility] Start: 1998 Screening for malignant neoplasm of cervix [facility] Start: 1989 PAP TESTING PAP TESTING [facility] Start: 1989 Screening for malignant neoplasm of cervix [facility] Start: 1987 Administration of varicella zoster vaccine Zoster (Shingles) Vaccine (1 of 2) [facility] Start: 1987 Hepatitis B Vaccine (1 of 3 - 19+ 3-dose series) Hepatitis B Vaccine (1 of 3 - 19+ 3-dose series) [facility] Start: 1986 Adult BMI Follow Up Plan Adult BMI Follow Up Plan [facility] Start: 1986 Anxiety Screening Anxiety Screening [facility] Start: 1986 Depression Screening Depression Screening [facility] Start: 1986 HIV SCREENING HIV SCREENING [facility] Start: 1986 HIV screening HIV Screening [facility] Start: 1980 Depression Screening Depression Screening [facility] Start: 1968 HEPATITIS B (1 of 3 - 3-dose series) HEPATITIS B (1 of 3 - 3-dose series) [facility] Start: 1968 Hepatitis B Vaccine (1 of 3 - 3-dose series) Hepatitis B Vaccine (1 of 3 - 3-dose series) [facility] Start: 1968 Screening for malignant neoplasm of colon [facility] Start: 1968 Tobacco Counseling Tobacco Counseling [facility] Basic metabolic 2000 panel - Serum or Plasma [facility] BLOOD CULTURE 1 BLOOD CULTURE 1 Lab Routine 08/23/2024 5:46 AM EDT [facility] BLOOD CULTURE 2 BLOOD CULTURE 2 Lab Routine 08/23/2024 5:52 AM EDT [facility] CBC W Auto Different ial panel - Blood [facility] End: 11-19-2033 CBC W Auto Differential panel - Blood CBC auto differential Lab Routine GBM (glioblastoma multiforme) [facility] weekly for 7 Occurrences starting 11/19/2024 until 11/19/2033 [employer] Work Phone: Comment on above: weekly for 7 Occurrences starting 2024 until 11/19/2033 End: 11-19-2025 Comprehensive metabolic 2000 panel - Serum or Plasma Comprehensive metabolic panel Lab Routine GBM (glioblastoma multiforme) ([facility] weekly for 7 Occurrences starting 11/19/2024 until 11/19/2025 [employer] Comment on above: weekly for 7 Occurrences starting 2024 until 11/19/2025 End: 09-05-2024 EMG(NEURO/NI) EMG(NEURO/NI) EMG Routine Left arm weakness 1 Occurrences starting 09/06/2023 until 09/05/2024 [facility] Work Phone: Comment on above: 1 Occurrences starting 09/06/2023 until 09/05/2024 IMMUNOGLOBULINS KESHAWN IMMUNOGLOBUL INS KESHAWN Lab Routine Multiple sclerosis, relapsing-remitting (HCC) 09/18/2021 8:36 AM EDT [facility] Work Phone: Ionized calcium [employer] Work Phone: Magnesium [Mass/volu me] in Serum or Plasma [employer] End: 11-16-2023 ALIYA SCREENING ALIYA SCREENING Radiology Routine Encounter for screening mammogram for breast cancer 1 Occurrences starting 10/17/2022 until 11/16/2023 [facility] Work Phone: Comment on above: 1 Occurrences starting 10/17/2022 until 11/16/2023 End: 08-14-2024 MR Brain WO and W contrast IV MRI BRAIN WO/W IVCON Radiology Routine Multiple sclerosis (HCC) 1 Occurrences starting 07/16/2023 until 08/14/2024 [facility] Work Phone: Comment on above: 1 Occurrences starting 07/16/2023 until 08/14/2024 End: 10-05-2024 MR Cervical spine WO contrast MRI CERVICAL SPINE WO IVCON Radiology Routine Left arm weakness 1 Occurrences starting 09/06/2023 until 10/05/2024 [facility] Work Phone: Comment on above: 1 Occurrences starting 09/06/2023 until 10/05/2024 End: 10-15-2022 Mri brain brain stem w/o w/contrast material MRI BRAIN WO/W IVCON Radiology Routine Multiple sclerosis, relapsing-remitting (HCC) 1 Occurrences starting 09/15/2021 until 10/15/2022 [facility] Work Phone: Comment on above: 1 Occurrences starting 09/15/2021 until 10/15/2022 End: 12-14-2022 Mri brain brain stem w/o w/contrast material MRI BRAIN WO/W IVCON Radiology Routine Multiple sclerosis, relapsing-remitting (HCC) 1 Occurrences starting 11/14/2021 until 12/14/2022 [facility] Work Phone: Comment on above: 1 Occurrences starting 11/14/2021 until 12/14/2022 End: 09-29-2023 Mri brain brain stem w/o w/contrast material MRI BRAIN WO/W IVCON Radiology Routine Multiple sclerosis, relapsing-remitting (HCC) 1 Occurrences starting 08/30/2022 until 09/29/2023 [facility] Work Phone: Comment on above: 1 Occurrences starting 08/30/2022 until 09/29/2023 End: 09-29-2023 Mri spinal canal cervical w/o & w/contr matrl MRI CERVICAL SPINE WO/W IVCON Radiology Routine Multiple sclerosis, relapsing-remitting (HCC) 1 Occurrences starting 08/30/2022 until 09/29/2023 [facility] Work Phone: Comment on above: 1 Occurrences starting 08/30/2022 until 09/29/2023 OT PLAN OF CARE CERTIFICATION OT PLAN OF CARE CERTIFICATION Procedures Routine Multiple sclerosis, relapsing-remitting (HCC) Ordered: 01/16/2022 [facility] Work Phone: Comment on above: Ordered: 01/16/2022 Oxygen Therapy - Maintain SpO2: 90%; *REFRIGERATOR REPAIRMAN Guidelines for O2: Yes; Document: \[email or web address]\epi c\EPIC_Reference\Orders\ Respiratory Care Guidelines\CPG Oxygen 2022.pdf [facility] Work Phone: Patient Education Hemorrhoids (D C) Diverticulosis (DC) Colon Polypectomy (DC) [facility] Work Phone: Phosphate [Mass/volu me] in Serum or Plasma [employer] Platelets [#/volume] in Blood [facility] Work Phone: Renal function 2000 panel - Serum or Plasma [facility] End: 12-15-2022 Screening mammography bi 2-view breast inc cad ALIYA SCREENING Radiology Routine Encounter for screening mammogram for breast cancer 1 Occurrences starting 11/15/2021 until 12/15/2022 [facility] Work Phone: Comment on above: 1 Occurrences starting 11/15/2021 until 12/15/2022 Surgical Pathology [facility] Work Phone: URINE CULTURE - [facility] URINE CULTU RE - [facility] Lab Routine 08/22/2024 10:45 PM EDT [facility] URINE CULTURE - [facility] URINE CULTU RE - [facility] Lab Routine 10/17/2024 9:45 AM EDT [facility] US Kidney - bilateral [facility] End: 10-05-2024 XR CERV OTHER 4V AP/LAT/FLX/EXT XR CERV OTHER 4V AP/LAT/FLX/EXT Radiology Routine Left arm weakness 1 Occurrences starting 09/06/2023 until 10/05/2024 [facility] Work Phone: Comment on above: 1 Occurrences starting 09/06/2023 until 10/05/2024 [facility] Immunizations Immunization Date Immunization Notes Care Provider Fa cili 03-05-2024 influenza, injectabl e, madin diane canine kidney, preservative free Julio Fernandez MD Work Phone: [facility] 03-05-2024 Influenza, injectabl e, Madin Diane Canine Kidney, preservative free, quadrivalent Fred Gracia PRODUCT DEVELOPMENT Work Phone: [facility] 03-05-2024 unknown vaccine or immune globulin Julio Fernandez MD Work Phone: [facility] 03-05-2024 influenza virus vaccine, unspecified formulation Adonay Castillo PEGGYINSPECTOR SHELLS Work Phone: [facility] 05-02-2023 influenza, intraderm al, quadrivalent, preservative free, injectable Shaikh Jonn BENITEZ Work Phone: [facility] 05-02-2023 influenza virus vaccine, unspecified formulation Sarthak Escobar MD, PhD Work Phone: [facility] 04-30-2023 influenza, seasonal, injectable Shaikh Jonn BENITEZ Work Phone: [facility] 05-29-2022 unknown vaccine or immune globulin Julio Fernandez MD Work Phone: [facility] 03-07-2022 influenza, high dose seasonal, preservative-free Shaikh Jonn BENITEZ Work Phone: [facility] 03-07-2022 influenza virus vaccine, unspecified formulation Jessica Clarke PA-C Work Phone: [facility] 05-18-2021 COVID-19 mRNA-1273 (Moderna) [facility] Work Phone: [facility] 05-18-2021 unknown vaccine or immune globulin Julio Fernandez MD Work Phone: [facility] 07-28-2020 unknown vaccine or immune globulin Julio Fernandez MD Work Phone: [facility] 07-28-2020 Ilia and Ilia COVID 19 Vaccine Jaleesa Lara [facility] Comment on above: Note: Patient tolera jonah well. No signs or symptoms of adverse reactions. Patient waited a minimum of 15 minutes. 04-08-2020 influenza, injectabl e, quadrivalent, preservative free Jessica Young PA-C Work Phone: [facility] 03-20-2019 influenza, injectabl e, quadrivalent, preservative free Jessica Young PA-C Work Phone: [facility] 06-05-2018 influenza, injectabl e, quadrivalent, preservative free Jessica Young PA-C Work Phone: [facility] 02-27-2017 influenza, injectabl e, quadrivalent, preservative free Jessica Young PA-C Work Phone: [facility] 10-02-2016 pneumococcal polysaccharide vaccine, 23 valent Jessica Young PA-C Work Phone: [facility] 10-02-2016 tetanus toxoid, redu maury diphtheria toxoid, and acellular pertussis vaccine, adsorbed Jessica Young PA-C Work Phone: [facility] 10-02-2016 unknown vaccine or immune globulin Julio Fernandez MD Work Phone: [facility] 04-03-2016 influenza, injectabl e, quadrivalent, preservative free Jessica Young PA-C Work Phone: [facility] 03-19-2015 influenza, high dose seasonal, preservative-free Jessica Young PA-C Work Phone: [facility] 03-19-2015 influenza, injectabl e, quadrivalent, preservative free Eliazar Brooks DO Work Phone: [facility] 04-27-2014 influenza, high dose seasonal, preservative-free Jessica Young PA-C Work Phone: [facility] 04-27-2014 influenza, injectabl e, quadrivalent, preservative free Eliazar Brooks DO Work Phone: [facility] Payers Date Payer Category Payer Self-pay [id number] 2024 Medicare [id number] 2023 Medicare (Managed Care) 1.2. [id number] 2023 Medicare [id number]. 1.13.159.2. [id number] 2022 Medicare [id number] 2020 Medicaid [facility] MEDICAID [facility] MEDICAID [id number] 2020-Present [phone] [address] [place] [address] Medicaid [id number]. [id number] 2020 Medicaid [id number]. 1.13.159.2. 7.3.461548.315 1968 Unknown [id number] 2.16.840.1.823084.3.579.2. 593 1968 Unknown [id number] 2.16.840.1.389311.3.579.2. 593 1968 Unknown [id number] 2.16.840.1.525882.3.579.2. 593 1968 Unknown [id number] 2.16.840.1.778048.3.579.2. 593 1968 Unknown [id number] 2.16.840.1.175056.3.579.2. 593 1968 Unknown [id number] 2.16.840.1.075101.3.579.2. 727 1968 Unknown [id number] 2.16.840.1.118052.3.579.2. 1259 1968 Unknown [id number] 2.16.840.1.343112.3.579.2. 1259 1968 Unknown [id number] 2.16.840.1.636804.3.579.2. 1258 1968 Unknown [id number] 2.16.840.1.054269.3.579.2. 1258 1968 Unknown [id number] 2.16.840.1.433661.3.579.2. 1258 1968 Unknown [id number] 2.16.840.1.542173.3.579.2. 1258 1968 Unknown [id number] 2.16.840.1.008168.3.579.2. 1258 1968 Unknown [id number] 2.16.840.1.849584.3.579.2. 1258 1968 Unknown [id number] 2.16.840.1.744667.3.579.2. 1258 1968 Unknown [id number] 2.16.840.1.256953.3.579.2. 1258 1968 Unknown [id number] 2.16.840.1.835328.3.579.2. 1258 1968 Unknown [id number] 2.16.840.1.179266.3.579.2. 1258 1968 Unknown [id number] 2.16.840.1.816655.3.579.2. 1258 1968 Unknown [id number] 2.16.840.1.921687.3.579.2. 1258 1968 Unknown [id number] 2.16.840.1.792217.3.579.2. 1258 1968 Unknown [id number] 2.16.840.1.314599.3.579.2. 1258 1968 Unknown [id number] 2.16.840.1.897069.3.579.2. 1258 1968 Unknown [id number] 2.16.840.1.792072.3.579.2. 1258 1968 Unknown [id number] 2.16.840.1.377633.3.579.2. 1259 1968 Unknown [id number] 2.16.840.1.764150.3.579.2. 9 1968 Unknown [id number] 2.16.840.1.280009.3.579.2. 9 1968 Unknown [id number] 2.16.840.1.943370.3.579.2. 1258 1968 Unknown [id number] 2.16.840.1.476418.3.579.2. 1258 1968 Unknown [id number] 2.16.840.1.262708.3.579.2. 1258 1968 Unknown [id number] 2.16.840.1.214800.3.579.2. 1258 1968 Unknown [id number] 2.16.840.1.987051.3.579.2. 1285 1968 Unknown [id number] 2.16.840.1.700746.3.579.2. 1285 1968 Unknown [id number] 2.16.840.1.365147.3.579.2. 1285 1968 Unknown [id number] 2.16.840.1.063635.3.579.2. 732 1968 Unknown [id number] 2.16.840.1.920119.3.579.2. 1285 1968 Unknown [id number] 2.16.840.1.944339.3.579.2. 1285 1968 Unknown [id number] 2.16.840.1.657690.3.579.2. 1285 1968 Unknown [id number] 2.16.840.1.506161.3.579.2. 1285 1968 Unknown [id number] 2.16.840.1.960797.3.579.2. 1285 1968 Unknown [id number] 2.16.840.1.042856.3.579.2. 1286 1968 Unknown [id number] 2.16.840.1.276291.3.579.2. 1285 1968 Unknown [id number] 2.16.840.1.547849.3.579.2. 1285 1968 Unknown [id number] 2.16.840.1.956765.3.579.2. 1285 1968 Unknown [id number] 2.16.840.1.174434.3.579.2. 1285 1968 Unknown [id number] 2.16.840.1.450514.3.579.2. 1285 1968 Unknown [id number] 2.16.840.1.256047.3.579.2. 7 1968 Unknown [id number] 2.16.840.1.758216.3.579.2. 1968 Unknown [id number] 2.16.840.1.430536.3.579.2. 1968 Unknown [id number] 2.16.840.1.121200.3.579.2. 1968 Unknown [id number] 2.16.840.1.448438.3.579.2. 1968 Unknown [id number] 2.16.840.1.588835.3.579.2. 1959 Private Health Insurance [id number] 1959 Unknown [id number] Medicare [id number] Self-pay [id number] 2.16.840.1.848087.3.140.1. 78091.5.4 Unknown [id number] Unknown [id number] 2.16.840.1.040583.3.579.2. 531 Unknown [id number] 2.16.840.1.693410.3.579.2. 531 Social History Date Type Detail Facility Tobacco smoking status Unknown if ever sm [facility] Work Phone: Start: 1970 Sex Assigned At Female F [facility] Start: 09-05-2021 End: 11-24-2024 Tobacco smoking status NHIS Ex-smoker (finding) [facility] Start: 12-13-1996 End: 12-13-2016 History of tobacco use Current smoker [facility] Start: 12-13-1996 End: 12-13-2016 History of tobacco use Cigarette Smoker [facility] Start: 12-06-2017 End: 11-13-2024 Cigarettes smoked current (pack per day) - Reported 1 [facility] Start: 12-06-2017 End: 08-28-2024 Tobacco use and exposure Smokeless tobacco non-user [facility] Start: 11-01-2020 End: 07-10-2023 Alcohol intake Current drinker of alcohol (finding) [facility] Start: 08-02-2020 History SDOH Alcohol Frequency 2 [facility] Start: 08-02-2020 History SDOH Alcohol Std Drinks 3 [facility] Start: 08-08-2012 History SDOH Alcohol Comment rare [facility] Start: 08-02-2020 History SDOH Social Connections Get Together 1 [facility] Start: 08-02-2020 History SDOH Physica l Activity DPW 0 [facility] Start: 08-02-2020 History SDOH Stress 5 [facility] Start: 08-02-2020 History SDOH Financial 4 [facility] Start: 08-02-2020 Education 8 [facility] Start: 08-08-2012 End: 03-22-2022 Tobacco Comment plans to try to quit at some point but not ready. [facility] Start: 09-08-2021 End: 03-22-2022 Exposure to SARS-CoV-2 (event) Not sure [facility] Start: 08-02-2020 End: 11-13-2024 Sex Assigned At [facility] Do you belong to any clubs or organizations such as restorationism groups, unions, fraternal or athletic groups, or school groups? No [facility] Are you now , , , , never or living with a partner? [facility] How often to you hav e a drink containing alcohol? Monthly or less [facility] How many standard dr inks containing alcohol do you have on a typical day? 5 or 6 [facility] How often do you hav e 6 or more drinks on 1 occasion? Less than monthly [facility] How hard is it for y ou to pay for the very basics like food, housing, medical care, and heating Not very hard [facility] Start: 06-04-2023 Adult Depression Screening Assessment 5 [facility] Do you feel stress - tense, restless, nervous, or anxious, or unable to sleep at night because your mind is troubled all the time - these days [OSQ] Very much [facility] (I/We) worried wheth er (my/our) food would run out before (I/we) got money to buy more. Sometimes true [facility] Start: 08-02-2020 Gender identity Identifies as female gender (finding) [facility] Start: 08-02-2020 Sexual orientation Heterosexual (fin ever) [facility] Start: 06-05-2023 End: 08-31-2024 Alcohol intake [...] use Passive smoker [facility] Comment on above: States smokes 1 PPD Tobacco smoking status Mina gladis [facility] Start: 07-05-2015 End: 08-24-2024 Sex Female (finding) [facility] Start: 08-28-2024 Tobacco smoking stat NHIS Occasional tobacco [facility]oker [facility] Start: 09-16-2024 End: 11-12-2024 Alcoholic beverage intake Lifetime non-drinker (finding) [facility] Start: 1970 Sex assigned at Not on file P [employer] [facility] Medical Equipment Procedure Code Equipment Code Equipment Origin al Text Equipment Identifier Dates SHOULDER ARTHROS COPY W/ POSSIBLE REPAIR Eliazar Brooks DO 02/10/24 Non Biological Shoulder L [id number] [facility] Start: 02-10-2024 [id number] Start: 09-23-2024 [...] Received a call from nurse Jessica at [facility]. She has informed our office that [...] date and instructions. documented in this encounter [facility] 11-24-2024 Hospital Discharg e instructions Patient Education 11/24/2024 09:06:02 Acute Urinary Retention, Female, [id number] Acute Urinary Retention, Female Acute urinary retention [...] Follow these instructions at home: Medicines Take [id number]-ytc-[id number] and prescription medicines only as told by [...] provider. Document Revised: 01/25/2021 Document Reviewed: 01/25/2021 [employer] Patient Education 2023 [employer]. Follow Up Care 10/09/2024 11:33:20 With:REGINA MATTHEWS PA-C, URL Address: [address] [place] [address]. [place] [address] When:Within 3 Month(s) [facility] 11-24-2024 Note Patient Education Obstetrics and Gynecology [...] these instructions at home: Medicines ??? Take sbvo-vxd-bwesspc and prescription medicines only as told by [...] provider. Document Revised: 01/25/2021 Document Reviewed: 01/25/2021 [employer] Patient Education ? 2023 [employer]. [facility] 11-19-2024 Evaluation note Diagnosis Onset Date Resolution BRANDON (acute kidney injury) acute November 19, 2024 2 :21pm Hyperlipemia acute November 19 2:21pm Hypertension acute November 19 2:21pm Multiple sclerosis acute November 192024 2:21pm [facility] Work Phone: 1(636) 897-250306-27-2025 Miscellaneous Notes* Telephone Encounter - Cuca Sullivan - 11/13/2024 12:46 PM EDT Spoke with patient to let her know that she will be responsible for 40% of the bills. Patient states that she is ok with this. documented in this encounterSelect Medical [facility]ty Hospital [facility]stownSecureWave [facility] [id number] Telephone encounter Note* Telephone Encounter - Cuca Sullivan - 11/13/2024 12:46 PM EDT Spoke with patient to let her know that she will be responsible for 40% of the bills. Patient states that she is ok with this. [facility]06-26-2025 History of Present illness Narrative* Nancy Hernandez RN - 11/12/2024 3:45 PM EDT Patient accompanied by unit assistant from [facility] for Consult with Dr Sandoval (and Dr Mendoza) for diagnosis of Glioblastoma Craniotomy performed by Dr Espinal on 09/23/24 MR/Brain for SRS treatment planning tomorrow 11/13 at 1015am; Consent obtained to perform CT/Sim after with intention to plan concurrent ChemoRT with daily Temodar AVS provided with understanding verbalized documented in this encounterUniversity Hospitals TriPoint [facility] Center06-26-2025 History of Present illness Narrative* She Drew RN - 11/12/2024 1:53 PM EDT Patient saw Dr. Mendoza for consult for glioblastoma. Patient unsure if she wants to pursue concurrent chemo with RT. Will call patient in two weeks to see if she has made her decision. documented in this encounterUniversity Hospitals TriPoint Medical Center06-26-2025 History of Present illness Narrative* Nancy Hernandez RN - 11/12/2024 12:17 PM EDT RN attempted to contact Pt daughter Anna and son Aman per request of patient and Dr Sandoval to further discuss case and treatment planning; No answer on either line; left vm requesting return call documented in this encounterUniversity Hospitals TriPoint Medical Center06-26-2025 History of Present illness Narrative* Guillermo Mendoza MD - 11/12/2024 11:00 AM EDT Images from the original note were not included. [facility] 11/12/24 Anupama Vasquez is a 54 y.o. 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 Negative for MGMT promoter methylation. The patient came to her clinic for my oncologic or opinion regarding further treatment. She is hereaccompanied by a caregiver [facility]. She told me she is able to [...] Medical History: Diagnosis Date MS (multiple sclerosis) ([facility]) 2012 Past Surgical History: Procedure Laterality Date CARPAL TUNNEL RELEASE Left SHOULDER ARTHROSCOPY W/ ROTATOR CUFF REPAIR Left SYNAPTIVE CRANIOTOMY EXCISION TUMOR Right 09/23/2024 Performed by Jair Espinal MD at [facility] Family History Problem Relation Age of [...] Resource Strain: High Risk (06/04/2023) Received from [facility] Overall Financial Resource Strain (CARDIA) Difficulty of Paying Living Expenses: Very hard Food Insecurity: No Food Insecurity (11/10/2024) Hunger Screening Food Insecurity - Worry: Never True Food Insecurity - Inability: Never True Transportation Needs: No Transportation Needs (08/28/2024) PRAPARE - Transportation Lack of Transportation (Medical): No Lack of Transportation (Non-Medical): No Physical Activity: Sufficiently Active (06/04/2023) Received from [facility] Exercise Vital Sign Days of Exercise per Week: 4 days Minutes of Exercise per Session: 40 min Stress: No Stress Concern Present (06/04/2023) Received from [facility] [employer] [place] [facility] Occupational Health - Occupational Stress Questionnaire Feeling of Stress : Only a little Social Connections: Moderately Integrated (06/04/2023) Received from [facility] Social Connection and Isolation Panel [NHANES] Frequency of Communication with Friends and Family: Twice a week Frequency of Social Gatherings with Friends and Family: Once a week Attends Mu-Ism Services: 1 to 4 times per year [...] Dose: 500 mg Signed by: Jesi Phlipot, CUSTOMER EXPERIENCE LEADER-INSPECTOR SHELLS 500 mg, oral, 2 times daily Commonly known as: KEPPRA levoFLOXacin 500 mg tablet Refills: 0 Dose: 500 mg Commonly known as: LEVAQUIN metoprolol tartrate 25 mg tablet Refills: 0 Dose: 25 mg Signed by: Jesi Phlipot, CUSTOMER EXPERIENCE LEADER-INSPECTOR SHELLS 25 mg, oral, 2 times daily Commonly known as: LOPRESSOR mirtazapine 15 mg disintegrating tablet Refills: 0 Dose: 15 mg Commonly known as: REMERON CANDI-TAB nystatin powder Refills: 0 Commonly known as: MYCOSTATIN potassium chloride 10 MEQ CR capsule Refills: 0 Commonly known as: ACROLOR-BILL SPRINKLE sennosides-docusate sodium 8.6-50 mg Refills: 0 [...] Addressed This Visit Other GBM (glioblastoma multiforme) ([facility]) - Primary Impression: Brain glioblastoma, IDH-wildtype (DIRECTOR GLOBAL SALES WHO grade 4), negative for MGMT promoter [...] this note were generated using voice recognition M*Outbox dictation software. Although every effort was made to ensure the accuracy of this automated film processing utility worker, some errors in film processing utility worker may have occurred. CC: Patient Care Team: Fred Gracia APRN-RUBINA as PCP - General (Nurse Practitioner) Jacob Kaiser MD as Consulting Physician (Radiation Oncology) PCP:FRED GRACIA Referring MD: Reji Garcia APRN-* documented in this encounterSelect Medical Specialty Hospital - YoungstownSecureWave [facility]view [id number] Instructions* Patient Instructions* Guillermo Mendoza MD - 11/12/2024 11:00 AM EDT Follow-up in 4 weeks to finalize treatment plan. The patient is deciding whether she wants to proceed with treatment. Plan for concurrent chemoradiation with Temodar documented in this encounterUniversity Hospitals TriPoint Medical Center06-25-2025 Miscellaneous Notes* Telephone Encounter - Leyla Gusman - 11/11/2024 1:02 PM EDT Received referral for Radiation consult. Patient is currently at [facility]. I called andwas transferred to [place] I was told he is the transportation scrum product owner. [phone] documented in this encounterUniversity Hospitals TriPoint Medical Center06-25-2025 Telephone encounter Note* Telephone Encounter - Leyla Gusman - 11/11/2024 1:02 PM EDT Received referral for Radiation consult. Patient is currently at [facility]. I called andwas transferred to [place] I was told he is the transportation scrum product owner. [phone] [facility]06-25-2025 Miscellaneous Notes* Telephone Encounter - nAya Soni RN - 11/11/2024 11:19 AM EDT Dia from [facility] calls asking that the office note be sent to the [facility] so they can see the plan of care. Faxed as per request. documented in this encounterUniversity Hospitals TriPoint Medical Center06-25-2025 Telephone encounter Note* Telephone Encounter - Anya Soni RN - 11/11/2024 11:19 AM EDT Dia from [facility] calls asking that the office note be sent to the [facility] so they can see the plan of care. Faxed as per request. [facility]06-[facility]-2025 Miscellaneous Notes* Telephone Encounter - Ellie Coleman CMA - 11/11/2024 9:01 AM EDT L/M ON V/M Daughter Anna asked her to call regarding PRODUCT DEVELOPMENT referral from Dr. Espinal, patient is currently staying at [facility], asking where patient would like to be seen at for appointment,ask for Ellie. documented in this encounterUniversity Hospitals TriPoint Medical Center06-25-2025 Telephone encounter Note* Telephone Encounter - Ellie Coleman CMA - 11/11/2024 9:01 AM EDT L/M ON V/M Daughter Anna asked her to call regarding PRODUCT DEVELOPMENT referral from Dr. Espinal, patient is currently staying at [facility], asking where patient would like to be seen at for appointment,ask for Ellie. [facility]06-24-2025 History of Present illness Narrative* Reji Garcia APRN-RUBINA - 11/10/2024 1:10 PM EDT Images from the original note were not included. [facility] [address] [place] [address], [address] [place] [address] * CHART NOTE ? 11/10/2024 Patient: Anupama Vasquez [id number] Nurse Practitioner: Reji Gacria CNP Physician: Jair Espinal MD, FAANS IMPRESSION / PLAN 56 y.o. female S/P synpative craniotomy excision tumor performed on 09/23/24 reporting lateral doublevision that began approximately 3 weeks postop. I will refer her to an almond paste mixer to discuss the use of PRISM [...] weeks postop. She is currently at the [facility] where she is doing PT 3 times [...] Resource Strain: High Risk (06/04/2023) Received from [facility] Overall Financial Resource Strain (CARDIA) Difficulty of Paying Living Expenses: Very hard Food Insecurity: No Food Insecurity (09/16/2024) Hunger Screening Food Insecurity - Worry: Never True Food Insecurity - Inability: Never True Transportation Needs: No Transportation Needs (08/28/2024) PRAPARE - Transportation Lack of Transportation (Medical): No Lack of Transportation (Non-Medical): No Physical Activity: Sufficiently Active (06/04/2023) Received from [facility] Exercise Vital Sign Days of Exercise per Week: 4 days Minutes of Exercise per Session: 40 min Stress: No Stress Concern Present (06/04/2023) Received from [facility] [employer] [place] [facility] Occupational Health - Occupational Stress Questionnaire Feeling of Stress : Only a little Social Connections: Moderately Integrated (06/04/2023) Received from [facility] Social Connection and Isolation Panel [NHANES] Frequency of Communication with Friends and Family: Twice a week Frequency of Social Gatherings with Friends and Family: Once a week Attends Mu-Ism Services: 1 to 4 times per year [...] record of the patient encounter. Inadvertent computerized film processing utility worker errors related to syntax, spelling, homophones, and/or inaudibility may be present. Scribe Statement: Scribed for and in the presence of Jair Espinal MD by Wayne Farrsi. Provider Statement: I, Jair Espinal MD personally performed the services described in the documentation, as scribedby Wayne Farris in my presence, and it is both accurate and complete Wayne Farris 11/10/24 0959 Wayne Farris 11/10/24 1308 JACQUELINE Goel 11/10/24 1420 documented in this encounterSelect [facility] - [facility]Store Vantage [id number] Instructions* Patient Instructions* Steffanie Marte CMA - 11/10/2024 1:10 PM EDT Patient seen today by KISHA. Referred to opthalmology. Medical oncology and rad/onc. SS * Attachments The following attachments cannot be sent through Care Everywhere. * Quitting smoking for adults (Macanese) documented in this encounterUniversity Hospitals TriPoint Medical Center05-23-2025 NoteUrology Office/Clinic Note Chief Complaint referral, [place], urinary retention after brain surgery HPI Staff 54 yr old female here due to Urinary retention. Pt has Alexis. Denies any issues w alexis. No gross hematuria. No pain. No leaking around alexis. Pt has medical driver with her from [facility]. [...] of urine, unspecified) Hx MS. Transferred from [facility] to [facility] on 09/18/24 d/t BRANDON, brain mass w shift and AMS. 1.5Lretention upon admission w BRANDON (Dye Jig Operator 15.68) bilat hydro on US, improved to [...] E&M of New Patient Moderate 45-59 Min 09203 Influenza immunization status assessed 1030F Medication list [...] REGINA Pedraza, URL Within 6 weeks [address] [address] [facility] (1) Additional Instructions: Patient Education [...] Use:. Never Smokeless Tobacco Use:. Cigarettes, Yes, [facility]/2024[facility]:Result Comment: Electronically Signed By: REGINA MATTHEWS PA-C.[email or web address]\Date and Time Signed: 10/09/2510:41 [id number] NotePatient Education Obstetrics and Gynecology Acute Urinary [...] these instructions at home: Medicines ??? Take omfk-alk-zopvpst and prescription medicines only as told by [...] provider. Document Revised: 01/25/2021 Document Reviewed: 01/25/2021 [employer] Patient Education ? 2023 [employer] 09-29-2024 Miscellaneous Notes* Telephone Encounter - [...] Incision is healing well. documented in this encounterUniversity Hospitals TriPoint Medical Center05-13-2025 Telephone encounter Note* Telephone Encounter [...] with baby shampoo. Incision is healing well. [facility] [employer] [id number] Nurse Note* Elma Moreno RN - 09/29/2024 [...] Bedside RN, Unit clinical lead, PT, OT, AIRCRAFT METALSMITH, and Care navigation Diet: Dietary Orders (From admission, onward) Start Ordered 09/24/24 1405 Adult diet Level 5 Minced and Moist diet; No straws Diet effective now Comments: Mildly thick liquids Question Answer Comment Diet Type: Level 5 Minced and Moist diet Additional Liquid/Fluid Modifiers: No straws 09/24/24 1407 PT OT AIRCRAFT METALSMITH: PT OT AIRCRAFT METALSMITH Orders (From admission, onward) Start Ordered 09/25/24 [...] Bedside RN, Unit clinical lead, PT, OT, AIRCRAFT METALSMITH, and Care navigation Diet: Dietary Orders (From admission, onward) Start Ordered 09/23/24 214 Adult diet Regular Texture Diet effective now Question: Diet Type: Answer: Regular Texture 09/23/242142 PT OT AIRCRAFT METALSMITH: PT OT AIRCRAFT METALSMITH Orders (From admission, onward) Start Ordered 09/24/24 [...] Plan: Needs PT/OT evaluation documented in this encounterUniversity Hospitals TriPoint Medical Center05-13-2025 Miscellaneous Notes* Plan of Care - Elma Moreno RN - 09/29/2024 12:15 AM EDT Problem: Pain Goal: Patient goal is pain score less than 4, able to rest, and participant in treatment plan as appropriate Description: INTERVENTIONS: 1. Encourage patient or legal sales training representative to report early pain and ask [...] per policy 9. Teach patient or legal sales training representative interventions for comforting Outcome: Adequate for [...] at the bedside 7. Instruct patient/ patient sales training representative about use of safety devices 8. Include patient/ patient sales training representative in decisions related to safety Outcome: [...] hygiene technique. 7. Identify and instruct patient/patient sales training representative in use of appropriate isolation precautionsfor identified infection/symptoms. 8. Provide and discuss with patient/patient sales training representative on educational MDRO sheet. 9. Encourage and monitor nutritional status daily and consult senior java j2ee developer if indicated. 10. Implement neutropenic guidelines as needed. Outcome: Adequate for Discharge Problem: Knowledge Deficit Goal: Patient/patient sales training representative demonstrates understanding of disease process, treatment [...] supplement as ordered 13. Collaborate with clinical senior java j2ee developer 14. Include patient/ patient's sales training representative in decisions related to nutrition Outcome: [...] Score of =/> 25 or indicated by [facility] Assessment Goal: Patient should be free from fall Description: Interventions: 1. Tiller to environment 2. Hourly rounds addressing the [...] non-skid footwear 11. Teach patient and patient sales training representative to maintain environment for safety and [...] (cane, walker) within reach 19. Request patient sales training representative bring adaptive equipment/mobility aids from home or obtain and provide as needed 20. Consult pharmacy regarding effects of med's affecting mobility, cognition, and alternatives 21. Obtain physician order for PT if risk factors associated with mobility are present 22. Obtain physician order for OT as appropriate 23. Utilize diversional activities 24. Educate patient and patient sales training representative how to maintain a safe environment during visitationtimes (notify nurse prior to leaving bedside) 25. Consider appropriateness of medical or non-medical stenographer 26. Set up voiding schedule as appropriate [...] as ordered Outcome: Adequate for Discharge * PT/OT/AIRCRAFT METALSMITH - Lorna Dias CCC-AIRCRAFT METALSMITH - 09/28/2024 2:37 PM EDT Speech Therapy [...] after meals Medications: In applesauce/puree Discharge Recommendations: assisted facility Plan Frequency: 2-3days/week Duration: until discharge [...] PO intake following exam. Prognosis Services: Skilled AIRCRAFT METALSMITH services to address above deficits Prognosis/Potential: Good [...] trace residue within or on pharyngeal structures [facility] Overall Impression Scores Oral Impairment Total: 9 [...] Dysphagia Problem: Swallowing Dates: Start: 09/24/24 Disciplines: AIRCRAFT METALSMITH Goal: LTG: Patient will tolerate least restrictive diet recommended by AIRCRAFT METALSMITH without signs and symptoms of aspiration 90% of the time Dates: Start: 09/24/24 Expected End: 10/25/24 Disciplines: AIRCRAFT METALSMITH Outcomes Date/Time User Outcome 09/28/24 MARCELA WhitfieldAIRCRAFT METALSMITH Progressing Goal: STG: Patient will complete safety strategies independently during PO intake 90% of the time Dates: Start: 09/24/24 Expected End: 10/25/24 Disciplines: AIRCRAFT METALSMITH Outcomes Date/Time User Outcome 09/28/24 NATANAEL Whitfield Progressing Goal: STG: Patient will complete oral/ pharyngeal strengthening program with resistance with 90% accuracy with minimal cueing Dates: Start: 09/24/24 Expected End: 10/25/24 Disciplines: AIRCRAFT METALSMITH Outcomes Date/Time User Outcome 09/28/24 MARCELA WhitfieldAIRCRAFT METALSMITH Progressing Goal: STG: Patient will tolerate therapeutic feeding trials of advanced textures with 90% accuracy with minimal cueing Dates: Start: 09/24/24 Expected End: 10/25/24 Disciplines: AIRCRAFT METALSMITH Outcomes Date/Time User Outcome 09/28/24 1126 Laurel Moralez [facility]-AIRCRAFT METALSMITH Progressing Template: ST - Rehab Speech Problem: Auditory Comprehension Dates: Start: 09/24/24 Disciplines: AIRCRAFT METALSMITH Goal: LTG: Patient will comprehend communication related to basic medical and social needs and utilize compensatory strategies to maintain safety in a functional living environment Dates: Start: 09/24/24 Expected End: 10/25/24 Disciplines: AIRCRAFT METALSMITH Goal: STG: Patient will answer complex yes/no questions with 90% accuracy with minimal cueing Dates: Start: 09/24/24 Expected End: 10/25/24 Disciplines: AIRCRAFT METALSMITH Goal: STG: Patient will complete 1-3 step commands with 90% accuracy with minimal cueing Dates: Start: 09/24/24 Expected End: 10/25/24 Disciplines: AIRCRAFT METALSMITH Goal: STG: Patient will complete simple, phrase level auditory comprehension tasks with 90% accuracy with minimal cueing Dates: Start: 09/24/24 Expected End: 10/25/24 Disciplines: AIRCRAFT METALSMITH Problem: Cognitive Linguistic Dates: Start: 09/24/24 Disciplines: AIRCRAFT METALSMITH Goal: LTG: Patient will display functional cognitive-linguistic skills to demonstrate appropriate communication and safety within daily activities in a functional living environment Dates: Start: 09/24/24 Expected End: 10/25/24 Disciplines: AIRCRAFT METALSMITH Goal: STG: Patient will demonstrate sustained attention by maintaining focus during a task for 10 minutes with minimal assistance Dates: Start: 09/24/24 Expected End: 10/25/24 Disciplines: AIRCRAFT METALSMITH Goal: STG: Patient will be appropriately oriented to person, place, time and situation with 90% accuracy with minimal cueing Dates: Start: 09/24/24 Expected End: 10/25/24 Disciplines: AIRCRAFT METALSMITH Goal: STG: Patient will describe/demonstrate/initiate use of 3 memory strategies with minimal cueing Dates: Start: 09/24/24 Expected End: 10/25/24 Disciplines: AIRCRAFT METALSMITH Problem: High Level Language Dates: Start: 09/24/24 Disciplines: AIRCRAFT METALSMITH Goal: LTG: Patient will demonstrate use of self-awareness, goal setting, planning, initiation, self-monitoring and problem solving during daily activities to improve safety and awareness in a functional living environment Dates: Start: 09/24/24 Expected End: 10/25/24 Disciplines: AIRCRAFT METALSMITH Goal: STG: Patient will demonstrate functional problem solving and safety awareness with 90% accuracy in daily living tasks in order to increase safe interactions with environment and decrease assistance from caregivers Dates: Start: 09/24/24 Expected End: 10/25/24 Disciplines: AIRCRAFT METALSMITH Problem: Speech Production Dates: Start: 09/24/24 Disciplines: AIRCRAFT METALSMITH Goal: LTG: Patient will develop functional and intelligible speech and utilize compensatory strategies through the use of adequate labial and lingual function, increased articulatory precision and speech prosody Dates: Start: 09/24/24 Expected End: 10/25/24 Disciplines: AIRCRAFT METALSMITH Goal: STG: Patient will use appropriate articulatory accuracy and speech rate when reading/speakingwith 90% accuracy with minimal cueing Dates: Start: 09/24/24 Expected End: 10/25/24 Disciplines: AIRCRAFT METALSMITH Goal: STG: Patient will complete rapid alternating verbal sequences (tongue twisters) with improvedarticulatory precision with 90% accuracy with minimal cueing Dates: Start: 09/24/24 Expected End: 10/25/24 Disciplines: AIRCRAFT METALSMITH Problem: Verbal Expression Dates: Start: 09/24/24 Disciplines: AIRCRAFT METALSMITH Goal: LTG: Patient will utilize compensatory strategies to communicate wants and needs effectively to different conversational partners, maintain safety and participate socially in a functional living environment Dates: Start: 09/24/24 Expected End: 10/25/24 Disciplines: AIRCRAFT METALSMITH Goal: STG: Patient will describe objects, pictures (salient features) with 90% accuracy with minimal cueing to improve word retrieval skills Dates: Start: 09/24/24 Expected End: 10/25/24 Disciplines: AIRCRAFT METALSMITH Goal: STG: Patient will respond to simple/complex open ended questions during activities of daily living with 90% accuracy with minimal cueing Dates: Start: 09/24/24 Expected End: 10/25/24 Disciplines: AIRCRAFT METALSMITH Goal: STG: Patient will complete simple to complex divergent and convergent naming tasks with 90% accuracy with minimal cueing to improve thought organization Dates: Start: 09/24/24 Expected End: 10/25/24 Disciplines: AIRCRAFT METALSMITH Speech Therapy Care Plan (Resolved) There are [...] to [facility]. confirmed in [employer]. * Discharge Planning Note - Samantha Lemon - 09/28/2024 11:25 AM EDT DISCHARGE PLANNING NOTE Prior Auth approved for admission to : [facility] (P#: ; F#: ) Approval # [id number] Valid for Dates: 09/28/2024 - 09/30/2024 * PT/OT/AIRCRAFT METALSMITH - NATANAEL Perea - 09/28/2024 11:24 AM EDT Speech Therapy Dysphagia Treatment Note Assessment: Current Diet Tolerance: Level 2 Mildly Thick and Level 5 Minced and Moist Progress: improving Pain Assessment Pain Assessment: No/denies pain Recommendations Diet: Level 5 minced and moist diet, level 2 mildly thick liquids (no straws) [facility] Precautions Aspiration Plan: Plan of Care: [...] Dysphagia Problem: Swallowing Dates: Start: 09/24/24 Disciplines: AIRCRAFT METALSMITH Goal: LTG: Patient will tolerate least restrictive diet recommended by AIRCRAFT METALSMITH without signs and symptoms of aspiration 90% of the time Dates: Start: 09/24/24 Expected End: 10/25/24 Disciplines: AIRCRAFT METALSMITH Outcomes Date/Time User Outcome 09/28/24 MARCELA WhitfieldAIRCRAFT METALSMITH Progressing Goal: STG: Patient will complete safety strategies independently during PO intake 90% of the time Dates: Start: 09/24/24 Expected End: 10/25/24 Disciplines: AIRCRAFT METALSMITH Outcomes Date/Time User Outcome 09/28/24 MARCELA WhitfieldAIRCRAFT METALSMITH Progressing Goal: STG: Patient will complete oral/ pharyngeal strengthening program with resistance with 90% accuracy with minimal cueing Dates: Start: 09/24/24 Expected End: 10/25/24 Disciplines: AIRCRAFT METALSMITH Outcomes Date/Time User Outcome 09/28/24 MARCELA WhitfieldAIRCRAFT METALSMITH Progressing Goal: STG: Patient will tolerate therapeutic feeding trials of advanced textures with 90% accuracy with minimal cueing Dates: Start: 09/24/24 Expected End: 10/25/24 Disciplines: AIRCRAFT METALSMITH Outcomes Date/Time User Outcome 09/28/24 [facility] ST - Rehab Speech Problem: Auditory Comprehension Dates: Start: 09/24/24 Disciplines: AIRCRAFT METALSMITH Goal: LTG: Patient will comprehend communication related to basic medical and social needs and utilize compensatory strategies to maintain safety in a functional living environment Dates: Start: 09/24/24 Expected End: 10/25/24 Disciplines: AIRCRAFT METALSMITH Goal: STG: Patient will answer complex yes/no questions with 90% accuracy with minimal cueing Dates: Start: 09/24/24 Expected End: 10/25/24 Disciplines: AIRCRAFT METALSMITH Goal: STG: Patient will complete 1-3 step commands with 90% accuracy with minimal cueing Dates: Start: 09/24/24 Expected End: 10/25/24 Disciplines: AIRCRAFT METALSMITH Goal: STG: Patient will complete simple, phrase level auditory comprehension tasks with 90% accuracy with minimal cueing Dates: Start: 09/24/24 Expected End: 10/25/24 Disciplines: AIRCRAFT METALSMITH Problem: Cognitive Linguistic Dates: Start: 09/24/24 Disciplines: AIRCRAFT METALSMITH Goal: LTG: Patient will display functional cognitive-linguistic skills to demonstrate appropriate communication and safety within daily activities in a functional living environment Dates: Start: 09/24/24 Expected End: 10/25/24 Disciplines: AIRCRAFT METALSMITH Goal: STG: Patient will demonstrate sustained attention by maintaining focus during a task for 10 minutes with minimal assistance Dates: Start: 09/24/24 Expected End: 10/25/24 Disciplines: AIRCRAFT METALSMITH Goal: STG: Patient will be appropriately oriented to person, place, time and situation with 90% accuracy with minimal cueing Dates: Start: 09/24/24 Expected End: 10/25/24 Disciplines: AIRCRAFT METALSMITH Goal: STG: Patient will describe/demonstrate/initiate use of 3 memory strategies with minimal cueing Dates: Start: 09/24/24 Expected End: 10/25/24 Disciplines: AIRCRAFT METALSMITH Problem: High Level Language Dates: Start: 09/24/24 Disciplines: AIRCRAFT METALSMITH Goal: LTG: Patient will demonstrate use of self-awareness, goal setting, planning, initiation, self-monitoring and problem solving during daily activities to improve safety and awareness in a functional living environment Dates: Start: 09/24/24 Expected End: 10/25/24 Disciplines: AIRCRAFT METALSMITH Goal: STG: Patient will demonstrate functional problem solving and safety awareness with 90% accuracy in daily living tasks in order to increase safe interactions with environment and decrease assistance from caregivers Dates: Start: 09/24/24 Expected End: 10/25/24 Disciplines: AIRCRAFT METALSMITH Problem: Speech Production Dates: Start: 09/24/24 Disciplines: AIRCRAFT METALSMITH Goal: LTG: Patient will develop functional and intelligible speech and utilize compensatory strategies through the use of adequate labial and lingual function, increased articulatory precision and speech prosody Dates: Start: 09/24/24 Expected End: 10/25/24 Disciplines: AIRCRAFT METALSMITH Goal: STG: Patient will use appropriate articulatory accuracy and speech rate when reading/speakingwith 90% accuracy with minimal cueing Dates: Start: 09/24/24 Expected End: 10/25/24 Disciplines: AIRCRAFT METALSMITH Goal: STG: Patient will complete rapid alternating verbal sequences (tongue twisters) with improvedarticulatory precision with 90% accuracy with minimal cueing Dates: Start: 09/24/24 Expected End: 10/25/24 Disciplines: AIRCRAFT METALSMITH Problem: Verbal Expression Dates: Start: 09/24/24 Disciplines: AIRCRAFT METALSMITH Goal: LTG: Patient will utilize compensatory strategies to communicate wants and needs effectively to different conversational partners, maintain safety and participate socially in a functional living environment Dates: Start: 09/24/24 Expected End: 10/25/24 Disciplines: AIRCRAFT METALSMITH Goal: STG: Patient will describe objects, pictures (salient features) with 90% accuracy with minimal cueing to improve word retrieval skills Dates: Start: 09/24/24 Expected End: 10/25/24 Disciplines: AIRCRAFT METALSMITH Goal: STG: Patient will respond to simple/complex open ended questions during activities of daily living with 90% accuracy with minimal cueing Dates: Start: 09/24/24 Expected End: 10/25/24 Disciplines: AIRCRAFT METALSMITH Goal: STG: Patient will complete simple to complex divergent and convergent naming tasks with 90% accuracy with minimal cueing to improve thought organization Dates: Start: 09/24/24 Expected End: 10/25/24 Disciplines: AIRCRAFT METALSMITH Speech Therapy Care Plan (Resolved) There are [...] Description: INTERVENTIONS: 1. Encourage patient or legal sales training representative to report early pain and ask [...] per policy 9. Teach patient or legal sales training representative interventions for comforting Outcome: Progressing Note: [...] at the bedside 7. Instruct patient/ patient sales training representative about use of safety devices 8. Include patient/ patient sales training representative in decisions related to safety Outcome: [...] hygiene technique. 7. Identify and instruct patient/patient sales training representative in use of appropriate isolation precautionsfor identified infection/symptoms. 8. Provide and discuss with patient/patient sales training representative on educational MDRO sheet. 9. Encourage and monitor nutritional status daily and consult senior java j2ee developer if indicated. 10. Implement neutropenic guidelines as needed. Outcome: Progressing Note: Evaluation of progress towards goal: hand hygiene is preformed when entering and leaving the room. And no new s/s of infection are present. Will continue to monitor Problem: Knowledge Deficit Goal: Patient/patient sales training representative demonstrates understanding of disease process, treatment [...] supplement as ordered 13. Collaborate with clinical senior java j2ee developer 14. Include patient/ patient's sales training representative in decisions related to nutrition Outcome: [...] Score of =/> 25 or indicated by [facility] Assessment Goal: Patient should be free from fall Description: Interventions: 1. Tiller to environment 2. Hourly rounds addressing the [...] non-skid footwear 11. Teach patient and patient sales training representative to maintain environment for safety and [...] (cane, walker) within reach 19. Request patient sales training representative bring adaptive equipment/mobility aids from home or obtain and provide as needed 20. Consult pharmacy regarding effects of med's affecting mobility, cognition, and alternatives 21. Obtain physician order for PT if risk factors associated with mobility are present 22. Obtain physician order for OT as appropriate 23. Utilize diversional activities 24. Educate patient and patient sales training representative how to maintain a safe environment during visitationtimes (notify nurse prior to leaving bedside) 25. Consider appropriateness of medical or non-medical stenographer 26. Set up voiding schedule as appropriate [...] discharge at this time, awaiting precert to fdc facility. JACQUELINE Ayala 09/28/24 1016 * Discharge [...] Description: INTERVENTIONS: 1. Encourage patient or legal sales training representative to report early pain and ask [...] per policy 9. Teach patient or legal sales training representative interventions for comforting Outcome: Progressing Note: [...] at the bedside 7. Instruct patient/ patient sales training representative about use of safety devices 8. Include patient/ patient sales training representative in decisions related to safety Outcome: [...] hygiene technique. 7. Identify and instruct patient/patient sales training representative in use of appropriate isolation precautionsfor identified infection/symptoms. 8. Provide and discuss with patient/patient sales training representative on educational MDRO sheet. 9. Encourage and monitor nutritional status daily and consult senior java j2ee developer if indicated. 10. Implement neutropenic guidelines as needed. Outcome: Progressing Note: Evaluation of progress towards goal: Soda Column Operator assessed pt risk for infection in the beginning and throughout shift. Pt remains afebrile. Will continue to monitor. Problem: Knowledge Deficit Goal: Patient/patient sales training representative demonstrates understanding of disease process, treatment plan,medications, and discharge instructions Description: INTERVENTIONS 1. Complete learning assessment and assess knowledge base 2. Provide teaching at level of understanding 3. Provide teaching via preferred learning method(s) Outcome: Progressing Note: Evaluation of progress towards goal: Soda Column Operator educated pt on admission disease, medications, treatment, [...] supplement as ordered 13. Collaborate with clinical senior java j2ee developer 14. Include patient/ patient's sales training representative in decisions related to nutrition Outcome: [...] be free from fall Description: Interventions: 1. Tiller to environment 2. Hourly rounds addressing the [...] non-skid footwear 11. Teach patient and patient sales training representative to maintain environment for safety and [...] (cane, walker) within reach 19. Request patient sales training representative bring adaptive equipment/mobility aids from home or obtain and provide as needed 20. Consult pharmacy regarding effects of med's affecting mobility, cognition, and alternatives 21. Obtain physician order for PT if risk factors associated with mobility are present 22. Obtain physician order for OT as appropriate 23. Utilize diversional activities 24. Educate patient and patient sales training representative how to maintain a safe environment during visitationtimes (notify nurse prior to leaving bedside) 25. Consider appropriateness of medical or non-medical stenographer 26. Set up voiding schedule as appropriate (every 2 hours) Outcome: Progressing Note: Evaluation of progress towards goal: Soda Column Operator assessed pt fall precautions in the beginning [...] Description: INTERVENTIONS: 1. Encourage patient or legal sales training representative to report early pain and ask [...] per policy 9. Teach patient or legal sales training representative interventions for comforting Outcome: Progressing Note: [...] at the bedside 7. Instruct patient/ patient sales training representative about use of safety devices 8. Include patient/ patient sales training representative in decisions related to safety Outcome: [...] hygiene technique. 7. Identify and instruct patient/patient sales training representative in use of appropriate isolation precautionsfor identified infection/symptoms. 8. Provide and discuss with patient/patient sales training representative on educational MDRO sheet. 9. Encourage and monitor nutritional status daily and consult senior java j2ee developer if indicated. 10. Implement neutropenic guidelines as needed. Outcome: Progressing Note: Evaluation of progress towards goal: Patient remains afebrile with absence of typical signs of infection such as redness, swelling, purulent drainage, etc. Labs remain within defined limits. Infection preventative measures maintained. Will continue to monitor patient for any signs or symptomsindicating infection while providing care. Problem: Knowledge Deficit Goal: Patient/patient sales training representative demonstrates understanding of disease process, treatment [...] supplement as ordered 13. Collaborate with clinical senior java j2ee developer 14. Include patient/ patient's sales training representative in decisions related to nutrition Outcome: Progressing Note: Evaluation of progress towards goal: Patient/patient's sales training representative is involved in decisions related to [...] Score of =/> 25 or indicated by [facility] Assessment Goal: Patient should be free from fall Description: Interventions: 1. Tiller to environment 2. Hourly rounds addressing the [...] non-skid footwear 11. Teach patient and patient sales training representative to maintain environment for safety and [...] (cane, walker) within reach 19. Request patient sales training representative bring adaptive equipment/mobility aids from home or obtain and provide as needed 20. Consult pharmacy regarding effects of med's affecting mobility, cognition, and alternatives 21. Obtain physician order for PT if risk factors associated with mobility are present 22. Obtain physician order for OT as appropriate 23. Utilize diversional activities 24. Educate patient and patient sales training representative how to maintain a safe environment during visitationtimes (notify nurse prior to leaving bedside) 25. Consider appropriateness of medical or non-medical stenographer 26. Set up voiding schedule as appropriate [...] Description: INTERVENTIONS: 1. Encourage patient or legal sales training representative to report early pain and ask [...] per policy 9. Teach patient or legal sales training representative interventions for comforting Outcome: Progressing Note: [...] at the bedside 7. Instruct patient/ patient sales training representative about use of safety devices 8. Include patient/ patient sales training representative in decisions related to safety Outcome: Progressing Note: Evaluation of progress towards goal: Patient free from injury; bed to low position; skid freesocks applied; call light in reach Problem: Knowledge Deficit Goal: Patient/patient sales training representative demonstrates understanding of disease process, treatment [...] Description: INTERVENTIONS: 1. Encourage patient or legal sales training representative to report early pain and ask [...] per policy 9. Teach patient or legal sales training representative interventions for comforting Outcome: Progressing Note: [...] at the bedside 7. Instruct patient/ patient sales training representative about use of safety devices 8. Include patient/ patient sales training representative in decisions related to safety Outcome: [...] hygiene technique. 7. Identify and instruct patient/patient sales training representative in use of appropriate isolation precautionsfor identified infection/symptoms. 8. Provide and discuss with patient/patient sales training representative on educational MDRO sheet. 9. Encourage and monitor nutritional status daily and consult senior java j2ee developer if indicated. 10. Implement neutropenic guidelines as needed. Outcome: Progressing Note: Evaluation of progress towards goal: Patient remains afebrile with absence of typical signs of infection such as redness, swelling, purulent drainage, etc. Labs remain within defined limits. Infection preventative measures maintained. Will continue to monitor patient for any signs or symptomsindicating infection while providing care. \ Problem: Knowledge Deficit Goal: Patient/patient sales training representative demonstrates understanding of disease process, treatment [...] supplement as ordered 13. Collaborate with clinical senior java j2ee developer 14. Include patient/ patient's sales training representative in decisions related to nutrition Outcome: Progressing Note: Evaluation of progress towards goal: Patient/patient's sales training representative is involved in decisions related to [...] be free from fall Description: Interventions: 1. Tiller to environment 2. Hourly rounds addressing the [...] non-skid footwear 11. Teach patient and patient sales training representative to maintain environment for safety and [...] (cane, walker) within reach 19. Request patient sales training representative bring adaptive equipment/mobility aids from home or obtain and provide as needed 20. Consult pharmacy regarding effects of med's affecting mobility, cognition, and alternatives 21. Obtain physician order for PT if risk factors associated with mobility are present 22. Obtain physician order for OT as appropriate 23. Utilize diversional activities 24. Educate patient and patient sales training representative how to maintain a safe environment during visitationtimes (notify nurse prior to leaving bedside) 25. Consider appropriateness of medical or non-medical stenographer 26. Set up voiding schedule as appropriate [...] auth submitted to: [employer] Via: [employer] On behalf of : [facility] (P#: ; F#: ) Ref# [id number] * Discharge Planning Note - RAMIREZ Cotto [...] Description: INTERVENTIONS: 1. Encourage patient or legal sales training representative to report early pain and ask [...] per policy 9. Teach patient or legal sales training representative interventions for comforting Outcome: Progressing Note: [...] at the bedside 7. Instruct patient/ patient sales training representative about use of safety devices 8. Include patient/ patient sales training representative in decisions related to safety Outcome: Progressing Note: Evaluation of progress towards goal: Patient free from injury; bed to low position; skid freesocks applied; call light in reach Problem: Knowledge Deficit Goal: Patient/patient sales training representative demonstrates understanding of disease process, treatment [...] buttock;pt gets turned every 2 hours * PT/OT/AIRCRAFT METALSMITH - Silvia Vasquez OTR/L - 09/25/2024 3:55 PM EDT Occupational Therapy Evaluation Discharge Recommendations OT [facility] Comments: Recommend SNF to inc [...] admitted 09/18/24 from SNF, initially went to [place] ED for altered mental status, CT shows [...] Medical History: Diagnosis Date MS (multiple sclerosis) ([facility]) 2012 Past Surgical History: Procedure Laterality Date CARPAL TUNNEL RELEASE Left SHOULDER ARTHROSCOPY W/ ROTATOR CUFF REPAIR Left SYNAPTIVE CRANIOTOMY EXCISION TUMOR Right 09/23/2024 Performed by Jair Espinal MD at [facility] OT Treatment/Interventions: Functional transfer training, [...] skinny stedy, arterial line, alexis, repositioning sling Telemetry/Elevated Guard: Yes Oxygen Used: room air Other: high [...] month. Per EMR pt has been at [place] Prior Function Lives With: Son (works 3rd [...] with panic attacks Hyperlipidemia, acquired Multiple sclerosis ([facility]) LORENZO (obstructive sleep apnea) Primary hypertension Depression, unspecified Dysphagia, oropharyngeal phase * PT/OT/AIRCRAFT METALSMITH - Shelli Grady PT - 09/25/2024 3:53 PM EDT Physical Therapy Evaluation Discharge Recommendations PT Recommendations: [facility] Comments: due to decreased functional [...] admitted 09/18/24 from SNF, initially went to [place] ED for altered mental status, CT shows 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 with Shift,transfer to [facility] overnight- admit to MICU 09/19: Consults [...] Medical History: Diagnosis Date MS (multiple sclerosis) ([facility]) 2012 Past Surgical History: Procedure Laterality Date CARPAL TUNNEL RELEASE Left SHOULDER ARTHROSCOPY W/ ROTATOR CUFF REPAIR Left SYNAPTIVE CRANIOTOMY EXCISION TUMOR Right 09/23/2024 Performed by Jair Espinal MD at [facility] PT Treatment/Interventions: Functional transfer training, [...] gait belt, skinny stedy, arterial line, alexis Telemetry/Elevated Guard: Yes Oxygen Used: room air Other: high [...] poor historian, asking for pizza and calling freelance copywriter whti, pt tried to pull out IV with [...] with panic attacks Hyperlipidemia, acquired Multiple sclerosis ([facility]) LORENZO (obstructive sleep apnea) Primary hypertension [...] SNF SNF Name [facility] Phone: [facility] SNF Accepted? Yes Does the patient need discharge transportation arranged? Yes Transportation Arranged Ambulance Patient choice offered Yes List Provided Patient declined Patient Declined Active with Provider Case discussed in daily transition rounds and chart reviewed by CN. Barriers to discharge include PT/OT to see, aelxis, wounds(skin tears), monitoring neuro status. Discharge Plan remains: [facility]. Tasked [facility] to send updated clinical notes. Will [...] AM EDT DISCHARGE PLANNING NOTE Updates to [facility] (P#: ; F#: ) * Plan of Care - Elton Morillo RN - 09/25/2024 7:38 AM EDT Problem: Pain Goal: Patient goal is pain score less than 4, able to rest, and participant in treatment plan as appropriate Description: INTERVENTIONS: 1. Encourage patient or legal sales training representative to report early pain and ask [...] per policy 9. Teach patient or legal sales training representative interventions for comforting Outcome: Progressing Note: [...] at the bedside 7. Instruct patient/ patient sales training representative about use of safety devices 8. Include patient/ patient sales training representative in decisions related to safety Outcome: [...] hygiene technique. 7. Identify and instruct patient/patient sales training representative in use of appropriate isolation precautionsfor identified infection/symptoms. 8. Provide and discuss with patient/patient sales training representative on educational MDRO sheet. 9. Encourage and monitor nutritional status daily and consult senior java j2ee developer if indicated. 10. Implement neutropenic guidelines as needed. Outcome: Progressing Note: Evaluation of progress towards goal: Patient remains free from signs of infection at this time. Will continue to monitor. Problem: Knowledge Deficit Goal: Patient/patient sales training representative demonstrates understanding of disease process, treatment [...] supplement as ordered 13. Collaborate with clinical senior java j2ee developer 14. Include patient/ patient's sales training representative in decisions related to nutrition Outcome: [...] Score of =/> 25 or indicated by [facility] Assessment Goal: Patient should be free from fall Description: Interventions: 1. Tiller to environment 2. Hourly rounds addressing the [...] non-skid footwear 11. Teach patient and patient sales training representative to maintain environment for safety and [...] (cane, walker) within reach 19. Request patient sales training representative bring adaptive equipment/mobility aids from home or obtain and provide as needed 20. Consult pharmacy regarding effects of med's affecting mobility, cognition, and alternatives 21. Obtain physician order for PT if risk factors associated with mobility are present 22. Obtain physician order for OT as appropriate 23. Utilize diversional activities 24. Educate patient and patient sales training representative how to maintain a safe environment during visitationtimes (notify nurse prior to leaving bedside) 25. Consider appropriateness of medical or non-medical stenographer 26. Set up voiding schedule as appropriate [...] Description: INTERVENTIONS: 1. Encourage patient or legal sales training representative to report early pain and ask [...] per policy 9. Teach patient or legal sales training representative interventions for comforting Outcome: Progressing Note: [...] at the bedside 7. Instruct patient/ patient sales training representative about use of safety devices 8. Include patient/ patient sales training representative in decisions related to safety Outcome: [...] hygiene technique. 7. Identify and instruct patient/patient sales training representative in use of appropriate isolation precautionsfor identified infection/symptoms. 8. Provide and discuss with patient/patient sales training representative on educational MDRO sheet. 9. Encourage and monitor nutritional status daily and consult senior java j2ee developer if indicated. 10. Implement neutropenic guidelines as needed. Outcome: Progressing Note: Evaluation of progress towards goal: Patient remains free from signs of infection at this time. Will continue to monitor. Problem: Knowledge Deficit Goal: Patient/patient sales training representative demonstrates understanding of disease process, treatment [...] be free from fall Description: Interventions: 1. Tiller to environment 2. Hourly rounds addressing the [...] non-skid footwear 11. Teach patient and patient sales training representative to maintain environment for safety and [...] (cane, walker) within reach 19. Request patient sales training representative bring adaptive equipment/mobility aids from home or obtain and provide as needed 20. Consult pharmacy regarding effects of med's affecting mobility, cognition, and alternatives 21. Obtain physician order for PT if risk factors associated with mobility are present 22. Obtain physician order for OT as appropriate 23. Utilize diversional activities 24. Educate patient and patient sales training representative how to maintain a safe environment during visitationtimes (notify nurse prior to leaving bedside) 25. Consider appropriateness of medical or non-medical stenographer 26. Set up voiding schedule as appropriate [...] Manjinder Suresh RN 09/24/24 2:35 PM * PT/OT/AIRCRAFT METALSMITH - Rosario Orr CCC-AIRCRAFT METALSMITH - 09/24/2024 1:31 PM EDT Speech Therapy [...] strategies Medications: In applesauce/puree Referrals: Dysphagia therapy, [employer] Discharge Recommendations: (ongoing ST services) Pt educated [...] MS, who initially presented to [facility] 09/18 from her rehab facility with complaints of altered mental status. Per chart review patient was recently treated for rhabdomyolysis. 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 Pt was transferred to [facility] for neurosurgery consult. 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 Speech consulted post operatively to assess swallow function prior to diet initiation. Prognosis Services: Skilled AIRCRAFT METALSMITH services to address above deficits Prognosis/Potential: Good [...] Dysphagia Problem: Swallowing Dates: Start: 09/24/24 Disciplines: AIRCRAFT METALSMITH Goal: LTG: Patient will tolerate least restrictive diet recommended by AIRCRAFT METALSMITH without signs and symptoms of aspiration 90% of the time Dates: Start: 09/24/24 Expected End: 10/25/24 Disciplines: AIRCRAFT METALSMITH Goal: STG: Patient will complete safety strategies independently during PO intake 90% of the time Dates: Start: 09/24/24 Expected End: 10/25/24 Disciplines: AIRCRAFT METALSMITH Goal: STG: Patient will complete oral/ pharyngeal strengthening program with resistance with 90% accuracy with minimal cueing Dates: Start: 09/24/24 Expected End: 10/25/24 Disciplines: AIRCRAFT METALSMITH Goal: STG: Patient will tolerate therapeutic feeding trials of advanced textures with 90% accuracy with minimal cueing Dates: Start: 09/24/24 Expected End: 10/25/24 Disciplines: AIRCRAFT METALSMITH Template: ST - Rehab Speech Problem: Auditory Comprehension Dates: Start: 09/24/24 Disciplines: AIRCRAFT METALSMITH Goal: LTG: Patient will comprehend communication related to basic medical and social needs and utilize compensatory strategies to maintain safety in a functional living environment Dates: Start: 09/24/24 Expected End: 10/25/24 Disciplines: AIRCRAFT METALSMITH Goal: STG: Patient will answer complex yes/no questions with 90% accuracy with minimal cueing Dates: Start: 09/24/24 Expected End: 10/25/24 Disciplines: AIRCRAFT METALSMITH Goal: STG: Patient will complete 1-3 step commands with 90% accuracy with minimal cueing Dates: Start: 09/24/24 Expected End: 10/25/24 Disciplines: AIRCRAFT METALSMITH Goal: STG: Patient will complete simple, phrase level auditory comprehension tasks with 90% accuracy with minimal cueing Dates: Start: 09/24/24 Expected End: 10/25/24 Disciplines: AIRCRAFT METALSMITH Problem: Cognitive Linguistic Dates: Start: 09/24/24 Disciplines: AIRCRAFT METALSMITH Goal: LTG: Patient will display functional cognitive-linguistic skills to demonstrate appropriate communication and safety within daily activities in a functional living environment Dates: Start: 09/24/24 Expected End: 10/25/24 Disciplines: AIRCRAFT METALSMITH Goal: STG: Patient will demonstrate sustained attention by maintaining focus during a task for 10 minutes with minimal assistance Dates: Start: 09/24/24 Expected End: 10/25/24 Disciplines: AIRCRAFT METALSMITH Goal: STG: Patient will be appropriately oriented to person, place, time and situation with 90% accuracy with minimal cueing Dates: Start: 09/24/24 Expected End: 10/25/24 Disciplines: AIRCRAFT METALSMITH Goal: STG: Patient will describe/demonstrate/initiate use of 3 memory strategies with minimal cueing Dates: Start: 09/24/24 Expected End: 10/25/24 Disciplines: AIRCRAFT METALSMITH Problem: High Level Language Dates: Start: 09/24/24 Disciplines: AIRCRAFT METALSMITH Goal: LTG: Patient will demonstrate use of self-awareness, goal setting, planning, initiation, self-monitoring and problem solving during daily activities to improve safety and awareness in a functional living environment Dates: Start: 09/24/24 Expected End: 10/25/24 Disciplines: AIRCRAFT METALSMITH Goal: STG: Patient will demonstrate functional problem solving and safety awareness with 90% accuracy in daily living tasks in order to increase safe interactions with environment and decrease assistance from caregivers Dates: Start: 09/24/24 Expected End: 10/25/24 Disciplines: AIRCRAFT METALSMITH Problem: Speech Production Dates: Start: 09/24/24 Disciplines: AIRCRAFT METALSMITH Goal: LTG: Patient will develop functional and intelligible speech and utilize compensatory strategies through the use of adequate labial and lingual function, increased articulatory precision and speech prosody Dates: Start: 09/24/24 Expected End: 10/25/24 Disciplines: AIRCRAFT METALSMITH Goal: STG: Patient will use appropriate articulatory accuracy and speech rate when reading/speakingwith 90% accuracy with minimal cueing Dates: Start: 09/24/24 Expected End: 10/25/24 Disciplines: AIRCRAFT METALSMITH Goal: STG: Patient will complete rapid alternating verbal sequences (tongue twisters) with improvedarticulatory precision with 90% accuracy with minimal cueing Dates: Start: 09/24/24 Expected End: 10/25/24 Disciplines: AIRCRAFT METALSMITH Problem: Verbal Expression Dates: Start: 09/24/24 Disciplines: AIRCRAFT METALSMITH Goal: LTG: Patient will utilize compensatory strategies to communicate wants and needs effectively to different conversational partners, maintain safety and participate socially in a functional living environment Dates: Start: 09/24/24 Expected End: 10/25/24 Disciplines: AIRCRAFT METALSMITH Goal: STG: Patient will describe objects, pictures (salient features) with 90% accuracy with minimal cueing to improve word retrieval skills Dates: Start: 09/24/24 Expected End: 10/25/24 Disciplines: AIRCRAFT METALSMITH Goal: STG: Patient will respond to simple/complex open ended questions during activities of daily living with 90% accuracy with minimal cueing Dates: Start: 09/24/24 Expected End: 10/25/24 Disciplines: AIRCRAFT METALSMITH Goal: STG: Patient will complete simple to complex divergent and convergent naming tasks with 90% accuracy with minimal cueing to improve thought organization Dates: Start: 09/24/24 Expected End: 10/25/24 Disciplines: AIRCRAFT METALSMITH Speech Therapy Care Plan (Resolved) There are no resolved problems. Principal Problem: Altered mental status, unspecified altered mental status type Active Problems: Generalized anxiety disorder with panic attacks Hyperlipidemia, acquired Multiple sclerosis (CMS-HCC) LORENZO (obstructive sleep apnea) Primary hypertension Depression, unspecified Dysphagia, oropharyngeal phase * PT/OT/AIRCRAFT METALSMITH - Sherron White CCC-AIRCRAFT METALSMITH - 09/24/2024 8:35 AM EDT Speech Therapy [...] swallow. Please place order. Prognosis Services: Skilled AIRCRAFT METALSMITH services to address above deficits Prognosis/Potential: Good [...] continue to follow along. Prognosis Services: Skilled AIRCRAFT METALSMITH services to address the above deficits Prognosis/Potential: [...] Dysphagia Problem: Swallowing Dates: Start: 09/24/24 Disciplines: AIRCRAFT METALSMITH Goal: LTG: Patient will tolerate least restrictive diet recommended by [employer] without signs and symptoms of aspiration 90% of the time Dates: Start: 09/24/24 Expected End: 10/25/24 Disciplines: AIRCRAFT [employer] Goal: STG: Patient will complete safety strategies independently during PO intake 90% of the time Dates: Start: 09/24/24 Expected End: 10/25/24 Disciplines: [employer] Goal: STG: Patient will complete oral/ pharyngeal strengthening program with resistance with 90% accuracy with minimal cueing Dates: Start: 09/24/24 Expected End: 10/25/24 Disciplines: [employer] Goal: STG: Patient will tolerate therapeutic feeding trials of advanced textures with 90% accuracy with minimal cueing Dates: Start: 09/24/24 Expected End: 10/25/24 Disciplines: AIRCRAFT [employer]ALSM[employer] Template: ST - Rehab Speech Problem: Auditory Comprehension Dates: Start: 09/24/24 Disciplines: AIR[employer] Goal: LTG: Patient will comprehend communication related to basic medical and social needs and utilize compensatory strategies to maintain safety in a functional living environment Dates: Start: 09/24/24 Expected End: 10/25/24 Disciplines: AIR[employer] Goal: STG: Patient will answer complex yes/no questions with 90% accuracy with minimal cueing Dates: Start: 09/24/24 Expected End: 10/25/24 Disciplines: AIR[employer] Goal: STG: Patient will complete 1-3 step commands with 90% accuracy with minimal cueing Dates: Start: 09/24/24 Expected End: 10/25/24 Disciplines: [employer] Goal: STG: Patient will complete simple, phrase level auditory comprehension tasks with 90% accuracy with minimal cueing Dates: Start: 09/24/24 Expected End: 10/25/24 Disciplines: [employer] Problem: Cognitive Linguistic Dates: Start: 09/24/24 Disciplines: [employer] Goal: LTG: Patient will display functional cognitive-linguistic skills to demonstrate appropriate communication and safety within daily activities in a functional living environment Dates: Start: 09/24/24 Expected End: 10/25/24 Disciplines: [employer] Goal: STG: Patient will demonstrate sustained attention by maintaining focus during a task for 10 minutes with minimal assistance Dates: Start: 09/24/24 Expected End: 10/25/24 Disciplines: [employer] Goal: STG: Patient will be appropriately oriented to person, place, time and situation with 90% accuracy with minimal cueing Dates: Start: 09/24/24 Expected End: 10/25/24 Disciplines: [employer] Goal: STG: Patient will describe/demonstrate/initiate use of 3 memory strategies with minimal cueing Dates: Start: 09/24/24 Expected End: 10/25/24 Disciplines: [employer] Problem: High Level Language Dates: Start: 09/24/24 Disciplines: [employer] Goal: LTG: Patient will demonstrate use of self-awareness, goal setting, planning, initiation, self-monitoring and problem solving during daily activities to improve safety and awareness in a functional living environment Dates: Start: 09/24/24 Expected End: 10/25/24 Disciplines: [employer] Goal: STG: Patient will demonstrate functional problem solving and safety awareness with 90% accuracy in daily living tasks in order to increase safe interactions with environment and decrease assistance from caregivers Dates: Start: 09/24/24 Expected End: 10/25/24 Disciplines: [employer] Problem: Speech Production Dates: Start: 09/24/24 Disciplines: [employer] Goal: LTG: Patient will develop functional and intelligible speech and utilize compensatory strategies through the use of adequate labial and lingual function, increased articulatory precision and speech prosody Dates: Start: 09/24/24 Expected End: 10/25/24 Disciplines: [employer] Goal: STG: Patient will use appropriate articulatory accuracy and speech rate when reading/speakingwith 90% accuracy with minimal cueing Dates: Start: 09/24/24 Expected End: 10/25/24 Disciplines: [employer] Goal: STG: Patient will complete rapid alternating verbal sequences (tongue twisters) with improvedarticulatory precision with 90% accuracy with minimal cueing Dates: Start: 09/24/24 Expected End: 10/25/24 Disciplines: [employer] Problem: Verbal Expression Dates: Start: 09/24/24 Disciplines: [employer] Goal: LTG: Patient will utilize compensatory strategies to communicate wants and needs effectively to different conversational partners, maintain safety and participate socially in a functional living environment Dates: Start: 09/24/24 Expected End: 10/25/24 Disciplines: [employer] Goal: STG: Patient will describe objects, pictures (salient features) with 90% accuracy with minimal cueing to improve word retrieval skills Dates: Start: 09/24/24 Expected End: 10/25/24 Disciplines: [employer] Goal: STG: Patient will respond to simple/complex open ended questions during activities of daily living with 90% accuracy with minimal cueing Dates: Start: 09/24/24 Expected End: 10/25/24 Disciplines: [employer] Goal: STG: Patient will complete simple to complex divergent and convergent naming tasks with 90% accuracy with minimal cueing to improve thought organization Dates: Start: 09/24/24 Expected End: 10/25/24 Disciplines: [employer] Speech Therapy Care Plan (Resolved) There are [...] injury from restraints (Restraint for Interference with On Site Construction Superintendent) Description: INTERVENTIONS: 1. Determine that other, less [...] Free from restraint(s) (Restraint for Interference with On Site Construction Superintendent) Description: INTERVENTIONS: 1. ONCE/SHIFT or MINIMUM Q12H: [...] Description: INTERVENTIONS: 1. Encourage patient or legal sales training representative to report early pain and ask [...] per policy 9. Teach patient or legal sales training representative interventions for comforting Outcome: Progressing Note: [...] at the bedside 7. Instruct patient/ patient sales training representative about use of safety devices 8. Include patient/ patient sales training representative in decisions related to safety Outcome: [...] hygiene technique. 7. Identify and instruct patient/patient sales training representative in use of appropriate isolation precautionsfor identified infection/symptoms. 8. Provide and discuss with patient/patient sales training representative on educational MDRO sheet. 9. Encourage and monitor nutritional status daily and consult senior java j2ee developer if indicated. 10. Implement neutropenic guidelines as needed. Outcome: Progressing Note: Evaluation of progress towards goal: Labs and vitals monitored as ordered. Medications administered as ordered. Patient remains free from infection at this time. Problem: Knowledge Deficit Goal: Patient/patient sales training representative demonstrates understanding of disease process, treatment [...] supplement as ordered 13. Collaborate with clinical senior java j2ee developer 14. Include patient/ patient's sales training representative in decisions related to nutrition Outcome: [...] Score of =/> 25 or indicated by [facility] Assessment Goal: Patient should be free from fall Description: Interventions: 1. Tiller to environment 2. Hourly rounds addressing the [...] non-skid footwear 11. Teach patient and patient sales training representative to maintain environment for safety and [...] (cane, walker) within reach 19. Request patient sales training representative bring adaptive equipment/mobility aids from home or obtain and provide as needed 20. Consult pharmacy regarding effects of med's affecting mobility, cognition, and alternatives 21. Obtain physician order for PT if risk factors associated with mobility are present 22. Obtain physician order for OT as appropriate 23. Utilize diversional activities 24. Educate patient and patient sales training representative how to maintain a safe environment during visitationtimes (notify nurse prior to leaving bedside) 25. Consider appropriateness of medical or non-medical stenographer 26. Set up voiding schedule as appropriate [...] injury from restraints (Restraint for Interference with On Site Construction Superintendent) Description: INTERVENTIONS: 1. Determine that other, less [...] Free from restraint(s) (Restraint for Interference with On Site Construction Superintendent) Description: INTERVENTIONS: 1. ONCE/SHIFT or MINIMUM Q12H: [...] fastened to the bed with Rivera head field hockey coach. Her cranial anatomy was registered to the [employer] software with good accuracy. Stealth probe was [...] Espinal MD - Primary Assistants: None Staff: Retirement Sales Consultant Primary: Javier Argueta RN Retirement Sales Consultant Relief: Julia Lofton RN; Sherrie Leiva RN [...] Implant Name Type Inv. Item Serial No. Methods And Procedures Analyst Lot No. LRB No. Used Action PATCH DURA 3X3IN THK3.5MM CRNMXF DRMTRX-ONLAY + NPOR RGNRT RPL [id number] - [id number] Graft PATCH DURA 3X3IN THK3.5MM CRNMXF DRMTRX-ONLAY + NPOR RGNRT RPL [id number] JIM [employer]ANIOMAX[employer] [id number] Right 1 Implanted PLATE BN 12MM 2 HL LP BAR TAB UNV NEURO II CRNMXF TI NS 1.5 - [id number] Plate PLATE BN 12MM 2 HL LP BAR TAB UNV NEURO II CRNMXF TI NS 1.5 JIM [employer] Right 2 Implanted COVER BUR HL CRNFCL 10MMX.5MM LP TAB STRL LF DISP - [id number] Plate COVER BUR HL CRNFCL 10MMX.5MM LP TAB STRL LF DISP JIM [employer] Right 1 Implanted SCREW BN 4MM 1.5MM SLF DRL XPN CRNMXF STRL MUST ORDER IN MULTIPLES OF 5EA - [id number] Screw SCREW BN 4MM 1.5MM SLF DRL [...] Free from restraint(s) (Restraint for Interference with On Site Construction Superintendent) Description: INTERVENTIONS: 1. ONCE/SHIFT or MINIMUM Q12H: [...] Description: INTERVENTIONS: 1. Encourage patient or legal sales training representative to report early pain and ask [...] per policy 9. Teach patient or legal sales training representative interventions for comforting Outcome: Progressing Note: [...] at the bedside 7. Instruct patient/ patient sales training representative about use of safety devices 8. Include patient/ patient sales training representative in decisions related to safety Outcome: [...] hygiene technique. 7. Identify and instruct patient/patient sales training representative in use of appropriate isolation precautionsfor identified infection/symptoms. 8. Provide and discuss with patient/patient sales training representative on educational MDRO sheet. 9. Encourage and monitor nutritional status daily and consult senior java j2ee developer if indicated. 10. Implement neutropenic guidelines as needed. Outcome: Progressing Note: Evaluation of progress towards goal: Handwashing and standard precautions maintained. Patientremains free from infection through shift and has not shown any additional signs of infection at this time. Will continue to educate on infection prevention. Problem: Knowledge Deficit Goal: Patient/patient sales training representative demonstrates understanding of disease process, treatment [...] supplement as ordered 13. Collaborate with clinical senior java j2ee developer 14. Include patient/ patient's sales training representative in decisions related to nutrition Outcome: [...] be free from fall Description: Interventions: 1. Tiller to environment 2. Hourly rounds addressing the [...] non-skid footwear 11. Teach patient and patient sales training representative to maintain environment for safety and [...] (cane, walker) within reach 19. Request patient sales training representative bring adaptive equipment/mobility aids from home or obtain and provide as needed 20. Consult pharmacy regarding effects of med's affecting mobility, cognition, and alternatives 21. Obtain physician order for PT if risk factors associated with mobility are present 22. Obtain physician order for OT as appropriate 23. Utilize diversional activities 24. Educate patient and patient sales training representative how to maintain a safe environment during visitationtimes (notify nurse prior to leaving bedside) 25. Consider appropriateness of medical or non-medical stenographer 26. Set up voiding schedule as appropriate [...] injury from restraints (Restraint for Interference with On Site Construction Superintendent) Description: INTERVENTIONS: 1. Determine that other, less [...] /7, alexis Discharge Plan remains: return to [facility]. [facility]. Patient [...] Description: INTERVENTIONS: 1. Encourage patient or legal sales training representative to report early pain and ask [...] per policy 9. Teach patient or legal sales training representative interventions for comforting Outcome: Progressing Note: Evaluation of progress towards goal: Soda Column Operator assessed pt pain in the beginning and throughout shift. Pt stated a tolerable pain goal was zero. Soda Column Operator medicated pt pain per order. Will continue [...] at the bedside 7. Instruct patient/ patient sales training representative about use of safety devices 8. Include patient/ patient sales training representative in decisions related to safety Outcome: [...] hygiene technique. 7. Identify and instruct patient/patient sales training representative in use of appropriate isolation precautionsfor identified infection/symptoms. 8. Provide and discuss with patient/patient sales training representative on educational MDRO sheet. 9. Encourage and monitor nutritional status daily and consult senior java j2ee developer if indicated. 10. Implement neutropenic guidelines as needed. Outcome: Progressing Note: Evaluation of progress towards goal: Soda Column Operator assessed pt risk for infection in the beginning and throughout shift. Pt remains afebrile. Will continue to monitor. Problem: Knowledge Deficit Goal: Patient/patient sales training representative demonstrates understanding of disease process, treatment plan,medications, and discharge instructions Description: INTERVENTIONS 1. Complete learning assessment and assess knowledge base 2. Provide teaching at level of understanding 3. Provide teaching via preferred learning method(s) Outcome: Progressing Note: Evaluation of progress towards goal: Soda Column Operator educated pt on admission disease, medications, treatment, [...] towards goal: Patient's skin integrity is maintained, freelance copywriter assessed at beginning of shift and throughout, [...] supplement as ordered 13. Collaborate with clinical senior java j2ee developer 14. Include patient/ patient's sales training representative in decisions related to nutrition Outcome: [...] goal: Patient's perineal skin integrity is maintained, freelance copywriter assessed at beginning of shift and throughout, no changes noted, alexis cathter in place, fallon care provided. Problem: Moderate - High Risk Fall Score Description: García Fall Score of =/> 25 or indicated by [facility] Assessment Goal: Patient should be free from fall Description: Interventions: 1. Tiller to environment 2. Hourly rounds addressing the [...] non-skid footwear 11. Teach patient and patient sales training representative to maintain environment for safety and [...] (cane, walker) within reach 19. Request patient sales training representative bring adaptive equipment/mobility aids from home or obtain and provide as needed 20. Consult pharmacy regarding effects of med's affecting mobility, cognition, and alternatives 21. Obtain physician order for PT if risk factors associated with mobility are present 22. Obtain physician order for OT as appropriate 23. Utilize diversional activities 24. Educate patient and patient sales training representative how to maintain a safe environment during visitationtimes (notify nurse prior to leaving bedside) 25. Consider appropriateness of medical or non-medical stenographer 26. Set up voiding schedule as appropriate (every 2 hours) Outcome: Progressing Note: Evaluation of progress towards goal: Soda Column Operator assessed pt fall precautions in the beginning [...] injury from restraints (Restraint for Interference with On Site Construction Superintendent) Description: INTERVENTIONS: 1. Determine that other, less [...] injury from restrains, restrains remain in place, freelance copywriter checks pulses, range of motion, offers hygiene, nutrition and repositioning every two hours. Goal: Free from restraint(s) (Restraint for Interference with On Site Construction Superintendent) Description: INTERVENTIONS: 1. ONCE/SHIFT or MINIMUM Q12H: [...] time, order remains vaild for current shift, freelance copywriter performs necessary checks, plan of care ongoing. * Plan of Care - Reanna Ferguson RN - 09/22/2024 2:44 AM EDT Problem: Pain Goal: Patient goal is pain score less than 4, able to rest, and participant in treatment plan as appropriate Description: INTERVENTIONS: 1. Encourage patient or legal sales training representative to report early pain and ask [...] per policy 9. Teach patient or legal sales training representative interventions for comforting Outcome: Progressing Note: [...] at the bedside 7. Instruct patient/ patient sales training representative about use of safety devices 8. Include patient/ patient sales training representative in decisions related to safety Outcome: [...] hygiene technique. 7. Identify and instruct patient/patient sales training representative in use of appropriate isolation precautionsfor identified infection/symptoms. 8. Provide and discuss with patient/patient sales training representative on educational MDRO sheet. 9. Encourage and monitor nutritional status daily and consult senior java j2ee developer if indicated. 10. Implement neutropenic guidelines as needed. Outcome: Progressing Note: Evaluation of progress towards goal: Handwashing and standard precautions maintained. Patientremains free from infection through shift and has not shown any additional signs of infection at this time. Will continue to educate on infection prevention. Problem: Knowledge Deficit Goal: Patient/patient sales training representative demonstrates understanding of disease process, treatment [...] supplement as ordered 13. Collaborate with clinical senior java j2ee developer 14. Include patient/ patient's sales training representative in decisions related to nutrition Outcome: [...] Score of =/> 25 or indicated by [facility] Assessment Goal: Patient should be free from fall Description: Interventions: 1. Tiller to environment 2. Hourly rounds addressing the [...] non-skid footwear 11. Teach patient and patient sales training representative to maintain environment for safety and [...] (cane, walker) within reach 19. Request patient sales training representative bring adaptive equipment/mobility aids from home or obtain and provide as needed 20. Consult pharmacy regarding effects of med's affecting mobility, cognition, and alternatives 21. Obtain physician order for PT if risk factors associated with mobility are present 22. Obtain physician order for OT as appropriate 23. Utilize diversional activities 24. Educate patient and patient sales training representative how to maintain a safe environment during visitationtimes (notify nurse prior to leaving bedside) 25. Consider appropriateness of medical or non-medical stenographer 26. Set up voiding schedule as appropriate [...] injury from restraints (Restraint for Interference with On Site Construction Superintendent) Description: INTERVENTIONS: 1. Determine that other, less [...] EDT DISCHARGE PLANNING NOTE Referral sent to. [facility] (P#: ; F#: ) * Discharge Planning Note - RAMIREZ Cotto - 09/21/2024 3:15 PM EDT Images from the original note were not included. DISCHARGE PLANNING NOTE Soda Column Operator left messages for children, introduced self, and [...] Medical History: Diagnosis Date MS (multiple sclerosis) ([facility]) 2012 Prior to admission patient was a skilled patient at [facility] and family is interested in patient returning at discharge. Social work task [facility] to send referral to [facility]. Patient will require precert for placement. PCP: JACQUELINE LUNA Pharmacy:[facility] [place] PCP and pharmacy confirmed with patient. JACQUELINE [...] Description: INTERVENTIONS: 1. Encourage patient or legal sales training representative to report early pain and ask [...] per policy 9. Teach patient or legal sales training representative interventions for comforting Outcome: Progressing Note: [...] hygiene technique. 7. Identify and instruct patient/patient sales training representative in use of appropriate isolation precautionsfor identified infection/symptoms. 8. Provide and discuss with patient/patient sales training representative on educational MDRO sheet. 9. Encourage and monitor nutritional status daily and consult senior java j2ee developer if indicated. 10. Implement neutropenic guidelines as [...] injury from restraints (Restraint for Interference with On Site Construction Superintendent) Description: INTERVENTIONS: 1. Determine that other, less [...] AM EDT Problem: Knowledge Deficit Goal: Patient/patient sales training representative demonstrates understanding of disease process, treatment [...] Free from restraint(s) (Restraint for Interference with On Site Construction Superintendent) Description: INTERVENTIONS: 1. ONCE/SHIFT or MINIMUM Q12H: [...] Description: INTERVENTIONS: 1. Encourage patient or legal sales training representative to report early pain and ask [...] per policy 9. Teach patient or legal sales training representative interventions for comforting Outcome: Progressing Note: [...] at the bedside 7. Instruct patient/ patient sales training representative about use of safety devices 8. Include patient/ patient sales training representative in decisions related to safety Outcome: [...] hygiene technique. 7. Identify and instruct patient/patient sales training representative in use of appropriate isolation precautionsfor identified infection/symptoms. 8. Provide and discuss with patient/patient sales training representative on educational MDRO sheet. 9. Encourage and monitor nutritional status daily and consult senior java j2ee developer if indicated. 10. Implement neutropenic guidelines as [...] injury from restraints (Restraint for Interference with On Site Construction Superintendent) Description: INTERVENTIONS: 1. Determine that other, less [...] has been communicated to KIRK Venegas with [facility] Hospitalist. Critical Care will sign [...] Description: INTERVENTIONS: 1. Encourage patient or legal sales training representative to report early pain and ask [...] per policy 9. Teach patient or legal sales training representative interventions for comforting Outcome: Progressing Note: [...] hygiene technique. 7. Identify and instruct patient/patient sales training representative in use of appropriate isolation precautionsfor identified infection/symptoms. 8. Provide and discuss with patient/patient sales training representative on educational MDRO sheet. 9. Encourage and monitor nutritional status daily and consult senior java j2ee developer if indicated. 10. Implement neutropenic guidelines as needed. Outcome: Progressing Note: Evaluation of progress towards goal: Pt afebrile, vss, will continue to monitor. Problem: Knowledge Deficit Goal: Patient/patient sales training representative demonstrates understanding of disease process, treatment [...] injury from restraints (Restraint for Interference with On Site Construction Superintendent) Description: INTERVENTIONS: 1. Determine that other, less [...] AM EDT Problem: Knowledge Deficit Goal: Patient/patient sales training representative demonstrates understanding of disease process, treatment [...] injury from restraints (Restraint for Interference with On Site Construction Superintendent) Description: INTERVENTIONS: 1. Determine that other, less [...] Free from restraint(s) (Restraint for Interference with On Site Construction Superintendent) Description: INTERVENTIONS: 1. ONCE/SHIFT or MINIMUM Q12H: [...] Description: INTERVENTIONS: 1. Encourage patient or legal sales training representative to report early pain and ask [...] per policy 9. Teach patient or legal sales training representative interventions for comforting Outcome: Progressing Note: [...] at the bedside 7. Instruct patient/ patient sales training representative about use of safety devices 8. Include patient/ patient sales training representative in decisions related to safety Outcome: [...] hygiene technique. 7. Identify and instruct patient/patient sales training representative in use of appropriate isolation precautionsfor identified infection/symptoms. 8. Provide and discuss with patient/patient sales training representative on educational MDRO sheet. 9. Encourage and monitor nutritional status daily and consult senior java j2ee developer if indicated. 10. Implement neutropenic guidelines as [...] try again later. Enid Eaton Jr., MFrida. [facility] [phone] * Plan of Care - Asim Hinojosa RN - 09/19/2024 7:41 AM EDT Problem: Pain Goal: Patient goal is pain score less than 4, able to rest, and participant in treatment plan as appropriate Description: INTERVENTIONS: 1. Encourage patient or legal sales training representative to report early pain and ask [...] per policy 9. Teach patient or legal sales training representative interventions for comforting 09/19/2024 0741 by [...] at the bedside 7. Instruct patient/ patient sales training representative about use of safety devices 8. Include patient/ patient sales training representative in decisions related to safety 09/19/2024740 [...] hygiene technique. 7. Identify and instruct patient/patient sales training representative in use of appropriate isolation precautionsfor identified infection/symptoms. 8. Provide and discuss with patient/patient sales training representative on educational MDRO sheet. 9. Encourage and monitor nutritional status daily and consult senior java j2ee developer if indicated. 10. Implement neutropenic guidelines as needed. 09/19/2024740 by MOE Dailey Outcome: Progressing Note: Evaluation of progress towards goal: No active infections 09/19/2024738 by MOE Dailey Outcome: Progressing Note: Evaluation of progress towards goal: No active infections Problem: Knowledge Deficit Goal: Patient/patient sales training representative demonstrates understanding of disease process, treatment [...] supplement as ordered 13. Collaborate with clinical senior java j2ee developer 14. Include patient/ patient's sales training representative in decisions related to nutrition 09/19/2024740 [...] Score of =/> 25 or indicated by [facility] Assessment Goal: Patient should be free from fall Description: Interventions: 1. Tiller to environment 2. Hourly rounds addressing the [...] non-skid footwear 11. Teach patient and patient sales training representative to maintain environment for safety and [...] (cane, walker) within reach 19. Request patient sales training representative bring adaptive equipment/mobility aids from home or obtain and provide as needed 20. Consult pharmacy regarding effects of med's affecting mobility, cognition, and alternatives 21. Obtain physician order for PT if risk factors associated with mobility are present 22. Obtain physician order for OT as appropriate 23. Utilize diversional activities 24. Educate patient and patient sales training representative how to maintain a safe environment during visitationtimes (notify nurse prior to leaving bedside) 25. Consider appropriateness of medical or non-medical stenographer 26. Set up voiding schedule as appropriate [...] AM EDT Problem: Knowledge Deficit Goal: Patient/patient sales training representative demonstrates understanding of disease process, treatment [...] Description: INTERVENTIONS: 1. Encourage patient or legal sales training representative to report early pain and ask [...] per policy 9. Teach patient or legal sales training representative interventions for comforting Outcome: Progressing Note: [...] at the bedside 7. Instruct patient/ patient sales training representative about use of safety devices 8. Include patient/ patient sales training representative in decisions related to safety Outcome: [...] hygiene technique. 7. Identify and instruct patient/patient sales training representative in use of appropriate isolation precautionsfor identified infection/symptoms. 8. Provide and discuss with patient/patient sales training representative on educational MDRO sheet. 9. Encourage and monitor nutritional status daily and consult senior java j2ee developer if indicated. 10. Implement neutropenic guidelines as needed. Outcome: Progressing Note: Evaluation of progress towards goal: pt will show no signs or symptoms of infection prior to discharge. Any unneccessary invasive lines and tubes will be removed if not medically necessary to decrease infection risk. documented in this encounterUniversity Hospitals [facility]05-12-[facility] Hospital course Narrative* Julio Fernandez MD - 09/28/2024 5:25 PM EDT Images from the original note were not included. [facility]ICIANS [facility] INTERNAL MEDICINE [facility] - GEN 9 [address]UTE [address] [facility] [address] Hospital Medicine Discharge Summary Patient: Anupama Vasquez Date of : 1970 Room: [facility]/ Encounter date: 09/28/24 Hospital Day: 11 DATE OF ADMISSION: 09/18/2024 DATE OF DISCHARGE:09/28/2024 DISCHARGE DIAGNOSES Principal Problem: Altered mental status, unspecified altered mental status type Active Problems: Generalized anxiety disorder with panic attacks Hyperlipidemia, acquired Multiple sclerosis ([facility]) LORENZO (obstructive sleep apnea) Primary hypertension Depression, unspecified Dysphagia, oropharyngeal phase [facility] Urology Neurosurgery Nephrology PCP: FRED GRACIA, CUSTOMER EXPERIENCE LEADER-INSPECTOR SHELLS PROCEDURES Craniotomy HOSPITAL COURSE SUMMARY Patient's past medical history significant for MS, initially presented to [facility] from her rehab facility with complaints of altered mental status. Recently treated for rhabdomyolysis. 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 She was transferred to [facility] under Neurosurgery to the ICU. Right temporal [...] EKG completed Echocardiogram showing preserved LVEF with uagr-cp-jtovnocm mitral stenosis Buttock wound Previously following with [...] Brain CT from September 18 outside facility [place] PROCEDURE: Multiplanar multisequence images performed through the [...] for surgical planning. I favor a primary DIRECTOR GLOBAL SALES neoplasm such as a glioblastoma or astrocytoma. [...] on 09/19/2024 6:46 AM DISCHARGE INSTRUCTION Disposition: assisted facility Condition: Stable Activity: activity as tolerated [...] JACQUELINE AYALA 09/28/2024 5:25 PM [facility] Internal Medicine 7AM-7PM & 7PM-7AM: EpicChat or page through On-Call Finder. JACQUELINE Ayala 09/28/24 0836 Attending Addendum: I Dr Julio Fernandez, personally [...] the plan as noted. documented in this encounterUniversity Hospitals [facility]Point [facility] Center05-11-2025 History of Present illness Narrative* Skye Lara MD - 09/27/2024 4:31 PM EDT Images from the original note were not included. [facility] INTERNAL MEDICINE [facility] [address] [facility] [address] Hospital Medicine Progress Note Patient: Anupama Vasquez Date of : 1970 Room: [place] [address] PCP: JACQUELINE LUNA Admission date: 09/18/2024 11:59 [...] EKG completed Echocardiogram showing preserved LVEF with qudx-qj-ydisfdmc mitral stenosis Maintain cardiac monitoring Buttock wound [...] Lara MD 09/27/2024 4:31 PM [facility] Internal Medicine 7AM-7PM & 7PM-7AM: [...] Thank you, Arabella Burt RN Rapid Response: [facility] * Rivera Valverde RN - 09/26/2024 7:04 [...] Thank you, Russel Valverde RN Rapid Response: [facility] * Skye Lara MD - 09/26/2024 5:01 PM EDT Images from the original note were not included. [facility] INTERNAL MEDICINE [facility] - GEN [address] [facility] [address] Hospital Medicine Progress Note Patient: Anupama Vasquez Date of : 1970 Room: [place] [address] PCP: FRED GRACIA APRN-RUBINA Admission date: 09/18/2024 [...] EKG completed Echocardiogram showing preserved LVEF with panc-tk-kvofwcct mitral stenosis Maintain cardiac monitoring Buttock wound [...] page through On-Call Finder. * Laura Gore, CUSTOMER EXPERIENCE LEADER-INSPECTOR SHELLS - 09/26/2024 2:28 PM EDT Images from the original note were not included. [facility] [address] [place] [address], [address] [place] [address] * NEUROSURGERY DAILY PROGRESS NOTE DATE:09/26/2024 PATIENT'S [...] day please go to ON-Call Finder in [employer] or Integr[employer] and use log in Mediamorph and search for [facility] Neurosurgery JACQUELINE Roth 09/26/24 3117 * Arabella Burt RN - 09/26/2024 10:30 [...] Thank you, Arabella Burt RN Rapid Response: [facility] * DEISY Leroy - 09/25/2024 11:48 AM EDT NUTRITION ADULT FOLLOW UP NUTRITION ASSESSMENT: Patient History: Brief Clinical Summary: Labs:past medical history significant for MS, who initially presented to [facility] from [facility] facility with complaints of altered mental [...] 22 08/29/2024 Lab Results Component Value Date [id number] 09/19/2024 Lab Results Component Value Date [...] 4,000 mg intravenous PRN Steffanie E Walker, CUSTOMER EXPERIENCE LEADER-INSPECTOR SHELLS metoprolol tartrate (LOPRESSOR) tablet 25 mg 25 [...] Skin (per nursing flow sheets): Skin Color: [place] (09/25/24 0800) Skin Temp: Warm; Dry (09/25/24 [...] oz) Admit Weight: 119.4kg (Bed Scale, 09/19/24) [place] Body Weight: 61.4kg Weight Changes: 8.5kg loss/3 months (7%), stable inpatient +/- 2kg Current Body Mass Index: Body mass index is 41.7 kg/m . Comparative Standards: Estimated Energy Needs: 3271-0081 kcals daily. Method and weight used: 28-32 kcal/kg IBW Estimated Protein Needs: 74-123 grams daily. Method and weight used: 1.2-2g protein/kg IBW Estimated Fluid Needs: 8585-2245 ml daily. Method weight used: 28-32 ml/kg [...] Nikki Saez R.D,Lorraine Clinical dietitian Patient Touch extension:[phone] Direct Dial phone number: [phone] 09/25/24 12:04 PM * Skye Lara MD - 09/25/2024 11:06 AM EDT Images from the original note were not included. [facility] INTERNAL MEDICINE [facility] - GEN ICU [address] [facility] [address] Hospital Medicine Progress Note Patient: Anupama Vasquez Date of : 1970 Room: [place] [address] PCP: FRED GRACIA APRN-RUBINA Admission date: 09/18/2024 [...] EKG completed Echocardiogram showing preserved LVEF with zjhq-hx-kwjoecum mitral stenosis Maintain cardiac monitoring Buttock wound [...] per Neurosurgery JACQUELINE Hamilton 09/25/2024 11:06 AM [facility] Internal Medicine 7AM-7PM & 7PM-7AM: [...] from the original note were not included. 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 VSS today. - Continue serial [...] Edward- [facility] Neurosurgery Please contact via Shippter first then can utilize Patient touch/VoceraEdge if needed 09/25/24 7:08 AM To find out which DIANE is on for the day please go to Integral [employer] and use log in Mediamorph and search for [facility] Neurosurgery (DIANE and Phone Number is listed) JACQUELINE Vazquez 09/25/24 1303 * Margie Melissa MD - 09/25/2024 5:45 [...] This note was completed using a voice film processing utility worker system. Every effort was made to ensure accuracy. However, inadvertent computerized film processing utility worker errors may be present. * Skye Lara MD - 09/24/2024 10:11 AM EDT Images from the original note were not included. [facility] INTERNAL MEDICINE [facility] - GEN 8 ICU [address] [facility] [address] Hospital Medicine Progress Note Patient: Anupama Vasquez Date of : 1970 Room: [place] [address] PCP: FRED GRACIA APRN-INSPECTOR SHELLS Admission date: 09/18/2024 11:59 PM Encounter date: [...] EKG completed Echocardiogram showing preserved LVEF with xxey-iq-jlrtchyj mitral stenosis Maintain cardiac monitoring Buttock wound [...] JACQUELINE Hamilton 09/24/2024 10:11 AM [facility] Internal Medicine 7AM-7PM & 7PM-7AM: EpicChat or page through On-Call Finder. JACQUELINE Hamilton 09/24/24 9289 I, Skye Lara MD, personally performed the [...] 4 mm nonobstructing right renal stone retroperitoneal qofqwmewhe72/03/2025; no stone definitively CT 09/20/2024 Recommendations: 1. As above. Dr. Gunn taking over as hospitalists for our group starting tomorrow. Likely benefit long run from follow up at the [facility] office. . Thank you very much. I appreciate being asked to help with this patient's care. Enid Eaton Jr., M.D. [facility] [phone] * Chip Zarate, CUSTOMER EXPERIENCE LEADER-INSPECTOR SHELLS - 09/24/2024 6:50 AM EDT Images from the original note were not included. [facility] [address] [place] [address], [address] [place] [address] * NEUROSURGERY DAILY PROGRESS NOTE DATE:09/24/2024 PATIENT'S [...] Edward- [facility] Please contact via Allen Brotherst first then can utilize Patient touch/VoceraEdge if needed 09/24/24 6:54 AM To find out which DIANE is on for the day please go to Integr[employer] and use log in Mediamorph and search for [facility] Neuro[facility] (DIANE and Phone Number is listed) JACQUELINE Vazquez 09/24/241946 * DEISY Haines - 09/23/2024 12:05 PM EDT NUTRITION ADULT FOLLOW UP NUTRITION ASSESSMENT: Patient History: Brief Clinical Summary: past medical history significant for MS, who initially presented to [facility] from her rehab facility with complaints [...] 22 08/29/2024 Lab Results Component Value Date [id number] 09/19/2024 Lab Results Component Value Date [...] Skin (per nursing flow sheets): Skin Color: [place] (09/22/241939) Skin Temp: Dry; Cool (09/22/241939) Wound [...] oz) Admit Weight: 119.4kg (Bed Scale, 09/19/24) [place] Body Weight: 61.4kg Weight Changes: 8.5kg loss/3 months (7%), stable inpatient +/- 2kg Current Body Mass Index: Body mass index is 41.7 kg/m . Comparative Standards: Estimated Energy Needs: 6565-7824 kcals daily. Method and weight used: 28-32 kcal/kg IBW Estimated Protein Needs: 74-123 grams daily. Method and weight used: 1.2-2g protein/kg IBW Estimated Fluid Needs: 1576-5220 ml daily. Method weight used: 28-32 ml/kg [...] retention Right temporal 4.1cm brain mass with sreue-qb-ppae 60 mm shift with surrounding edema from September of 2024 Multiple sclerosis Left carpal tunnel release Left shoulder arthroscopy KEYANNA PERRIN MD [facility] ANY QUESTIONS FEEL FREE TO CALL: 1. OFFICE [phone] 2. ANSWERING SERVICE:[phone] YOU CAN CONTACT ME THROUGH [employer] SECURE CHAT DURING THE DAYTIME HOURS, IF [...] completed yesterday with preserved LVEF. Did have fvjv-xi-jldyrqga mitral stenosis with a mean gradient of [...] This note was completed using a voice film processing utility worker system. Every effort was made to ensure accuracy. However, inadvertent computerized film processing utility worker errors may be present. * Skye Lara MD - 09/23/2024 10:00 AM EDT Images from the original note were not included. [facility] INTERNAL MEDICINE [facility] - GEN [address] [facility] [address] Hospital Medicine Progress Note Patient: Anupama Vasquez [...] EKG completed Echocardiogram showing preserved LVEF with kwjt-pd-esuncwtj mitral stenosis Maintain cardiac monitoring Buttock wound [...] under neurosurgery. JACQUELINE Hamilton 09/23/2024 10:00 AM [facility] Internal Medicine 7AM-7PM & 7PM-7AM: EpicChat or page through On-Call Finder. JACQUELINE Hamilton 09/23/24 1107 I, Skye Lara MD, personally performed the face to face diagnostic evaluation on this patient. I have reviewed the DIANE's History, Exam, and MDM and agree with the assessment and plan as written. * Mynor Vargas, [facility] - 09/23/2024 8:40 AM EDT [facility] Department of Pharmacy Pharmacy-Physician Communication Anupama Vasquez ( ) qualifies for stress ulcer prophylaxis discontinuation per [facility] Policy. Famotidine IV has been selected [...] Thank you, Kenya Pastrana RN Rapid Response: [facility] * Keyanna Perrin MD - 09/22/2024 4:01 [...] retention Right temporal 4.1cm brain mass with qxuif-hh-laew 60 mm shift with surrounding edema from September of 2024 Multiple sclerosis Left carpal tunnel release Left shoulder arthroscopy KEYANNA PERRIN MD [facility] ANY QUESTIONS FEEL FREE TO CALL: 1. OFFICE [phone] 2. ANSWERING SERVICE:[phone] YOU CAN CONTACT ME THROUGH [employer] SECURE CHAT DURING THE DAYTIME HOURS, IF [...] from the original note were not included. [facility] PHYSICIANS [facility] INTERNAL MEDICINE [facility] - GEN [address] [facility] [facility] [address] Hospital Medicine Progress Note Patient: Anupama Vasquez Date of : 1970 Room: [place] [address] PCP: FRED GRACIA APRN-RUBINA Admission date: 09/18/2024 [...] Hamilton 09/22/2024 10:40 AM [facility] Internal Medicine 7AM-7PM & 7PM-7AM: EpicChat or [...] Thank you, He Gutierrez RN Rapid Response: [facility] * Enid Eaton Jr., MD - 09/22/2024 [...] 4 mm nonobstructing right renal stone retroperitoneal jemcagezpm44/03/2025; no stone definitively CT 09/20/2024 Recommendations: 1. As above 2. Craniotomy plan for tomorrow. We will plan to return to see the patient . Let us know ifyou need further help in the interim otherwise.. Thank you very much. I appreciate being asked to help with this patient's care. Enid Eaton Jr., M.D. [facility] [phone] * Mynor Vargas [facility] - 09/22/2024 7:35 AM EDT Images from [...] Component Value Units Date/Time Blood culture #2 [[id number]] Collected: 09/20/24 0733 Specimen: Blood, Venous Updated: 09/22/24 07 CULTURE RESULTS NO GROWTH 2 DAYS Narrative: Suboptimal volume of blood collected, Results may be affected. Blood culture #1 [[id number]] Collected: 09/20/24 0729 Specimen: Blood, Venous Updated: 09/22/24 07 CULTURE RESULTS NO GROWTH 2 DAYS Narrative: Suboptimal volume of blood collected, Results may be affected. Blood culture [[id number]] (Abnormal) Collected: 09/19/24 0123 Specimen: Blood, Venous Updated: 09/21/24 1946 CULTURE RESULTS Staphylococcus, coagulase negative Staphylococcus, coagulase negative GRAM STAIN Gram positive cocci in clusters Narrative: Suboptimal volume of blood collected, Results may be affected. BLOOD CULTURE IDENTIFICATION PANEL [[id number]] (Abnormal) Collected: 09/19/24 0123 Specimen: Blood, Venous Updated: 09/19/24 2031 Staphylococcus epidermidis PCR Detected mecA/C gene PCR Detected (Methicillin Resistance) Blood culture [[id number]] Collected: 09/19/24 0026 Specimen: Blood, Venous Updated: [...] consulting. Mynor Vargas RPH * Laura Gore APRN-INSPECTOR SHELLS - 09/21/2024 3:31 PM EDT Images from the original note were not included. [facility] [address] [place] [address], [address] [place] [address] * NEUROSURGERY DAILY PROGRESS NOTE DATE:09/21/2024 PATIENT'S [...] day please go to ON-Call Finder in [employer] or [employer] and use log in Mediamorph and search for [facility] Neurosurgery JACQUELINE Roth 09/21/24 1607 * Andrae Chisholm PharmD - 09/21/2024 1:11 [...] Component Value Units Date/Time Blood culture #2 [[id number]] Collected: 09/20/24 0733 Specimen: Blood, Venous Updated: 09/21/24 1151 CULTURE RESULTS NO GROWTH 1 DAY Narrative: Suboptimal volume of blood collected, Results may be affected. Blood culture #1 [[id number]] Collected: 09/20/24 0729 Specimen: Blood, Venous Updated: 09/20/24 0729 Blood culture [[id number]] (Abnormal) Collected: 09/19/24 0123 Specimen: Blood, Venous Updated: 09/20/24 1833 CULTURE RESULTS Culture in progress GRAM STAIN Gram positive cocci in clusters Narrative: Suboptimal volume of blood collected, Results may be affected. BLOOD CULTURE IDENTIFICATION PANEL [[id number]] (Abnormal) Collected: 09/19/24 0123 Specimen: Blood, Venous Updated: 09/19/24 2031 Staphylococcus epidermidis PCR Detected mecA/C gene PCR Detected (Methicillin Resistance) Blood culture [[id number]] Collected: 09/19/24 0026 Specimen: Blood, Venous Updated: [...] side. From September of 2024 showing negative AMGI negative MPO and PR3 antibody, normal complements, negative anti-GBM, CPK was 18, urine dipstick revealed 100 mg/dL protein moderateblood fractional excretion of sodium was 5.2% and random urine protein to creatinine ratio was 1.6 grams/gram. SPEP pending. Acute urine retention Right temporal 4.1cm brain mass with ohfdc-yz-uupg 60 mm shift with surrounding edema from [...] For questions please call: Answering Service at [phone] Or Office at [phone] This note was created with the assistance [...] 4 mm nonobstructing right renal stone retroperitoneal /03/2025; no stone definitively CT 09/20/2024 Recommendations: 1. [...] this patient's care. Enid Eaton Jr., M.D. [facility] [phone] * Mynor Vargas [facility] - 09/20/2024 9:25 PM EDT Images from [...] Component Value Units Date/Time Blood culture #2 [[id number]] Collected: 09/20/24 07 Specimen: Blood, Venous Updated: 09/20/24732 Blood culture #1 [[id number]] Collected: 09/20/24 0729 Specimen: Blood, Venous Updated: 09/20/24 0729 Blood culture [[id number]] (Abnormal) Collected: 09/19/24 0123 Specimen: Blood, Venous Updated: 09/20/24 1833 CULTURE RESULTS Culture in progress GRAM STAIN Gram positive cocci in clusters Narrative: Suboptimal volume of blood collected, Results may be affected. BLOOD CULTURE IDENTIFICATION PANEL [[id number]] (Abnormal) Collected: 09/19/24 0123 Specimen: Blood, Venous Updated: 09/19/24 203 Staphylococcus epidermidis PCR Detected mecA/C gene PCR Detected (Methicillin Resistance) Blood culture [[id number]] Collected: 09/19/24 0026 Specimen: Blood, Venous Updated: [...] consulting. Mynor Vargas RPH * Chip Zarate APRN-[facility] - 09/20/2024 2:20 PM EDT BRIEF NEUROSURGERY [...] Edward- [facility] Please contact via Shippter first then can utilize Patient touch/VoceraEdge if needed 09/20/24 2:22 PM To find out which DIANE is on for the day please go to [employer] and use log in Mediamorph and search for [facility] Neurosurgery (DIANE and Phone Number is [...] Component Value Units Date/Time Blood culture #2 [[id number]] Collected: 09/20/24732 Specimen: Blood, Venous Updated: 09/20/24732 Blood culture #1 [[id number]] Collected: 09/20/24728 Specimen: Blood, Venous Updated: 09/20/24728 Blood culture [[id number]] (Abnormal) Collected: 09/19/24122 Specimen: Blood, Venous Updated: 09/19/242034 CULTURE RESULTS NO GROWTH <24 HRS GRAM STAIN Gram positive cocci in clusters Narrative: Suboptimal volume of blood collected, Results may be affected. BLOOD CULTURE IDENTIFICATION PANEL [[id number]] (Abnormal) Collected: 09/19/24 012 Specimen: Blood, Venous Updated: 09/19/242030 Staphylococcus epidermidis PCR Detected mecA/C gene PCR Detected (Methicillin Resistance) Blood culture [[id number]] Collected: 09/19/24 0026 Specimen: Blood, Venous Updated: [...] Brain CT from September 18 outside facility [place] PROCEDURE: Multiplanar multisequence images performed through the [...] for surgical planning. I favor a primary DIRECTOR GLOBAL SALES neoplasm such as a glioblastoma or astrocytoma. [...] follow with you. Enid Eaton Jr., M.D. [facility] [phone] * Miriam Church MD - 09/20/2024 7:51 [...] retention Right temporal 4.1cm brain mass with zarof-fl-arvj 60 mm shift with surrounding edema from [...] For questions please call: Answering Service at [phone] Or Office at [phone] This note was created with the assistance of a speech-recognition program. Although the intention is to generate a document that actually reflects the content of the visit, no guarantees can be provided that every mistake has been identified and corrected by editing. * Steffanie Lozano APRN-INSPECTOR SHELLS - 09/20/2024 6:27 AM EDT Images from the original note were not included. [facility] Progress Note Name: Anupama [...] of care discussed with Dr.case Steffanie Lozano CUSTOMER EXPERIENCE LEADER INSPECTOR SHELLS Acute Care Nurse Practitioner [facility] [...] Procedure Component Value Units Date/Time Blood culture [[id number]] (Abnormal) Collected: 09/19/24122 Specimen: Blood, Venous Updated: 09/19/242034 CULTURE RESULTS NO GROWTH <24 HRS GRAM STAIN Gram positive cocci in clusters Narrative: Suboptimal volume of blood collected, Results may be affected. BLOOD CULTURE IDENTIFICATION PANEL [[id number]] (Abnormal) Collected: 09/19/24122 Specimen: Blood, Venous Updated: 09/19/242030 Staphylococcus epidermidis PCR Detected mecA/C gene PCR Detected (Methicillin Resistance) Blood culture [[id number]] Collected: 09/19/24 002 Specimen: Blood, Venous Updated: [...] 09/20/2024 9:58 AM EDT * Carolina Schulz [facility] - 09/19/2024 9:08 PM EDT Images from [...] Procedure Component Value Units Date/Time Blood culture [[id number]] (Abnormal) Collected: 09/19/24122 Specimen: Blood, Venous Updated: 05/03/25 2035 CULTURE RESULTS NO GROWTH <24 HRS GRAM STAIN Gram positive cocci in clusters Narrative: Suboptimal volume of blood collected, Results may be affected. BLOOD CULTURE IDENTIFICATION PANEL [[id number]] (Abnormal) Collected: 09/19/24 0123 Specimen: Blood, Venous Updated: 09/19/242030 Staphylococcus epidermidis PCR Detected mecA/C gene PCR Detected (Methicillin Resistance) Blood culture [[id number]] Collected: 09/19/24 0026 Specimen: Blood, Venous Updated: [...] has been changed per the [facility]- approved renal dosing policy. Current CrCl = 6 mL/min. Accordingly, the dose of famotine 20mg iv bid was changed to famotidine 20mg iv q48hr. If there are any issues or concerns, please contact central pharmacy at [phone]. Thank you, Ayush Mina Jr. [facility]. documented in this encounterSelect Medical Specialty Hospital - YoungstownSecureWave [facility] [id number] Hospital Discharge instructions* Discharge Instructions* Laura Gore, CUSTOMER EXPERIENCE LEADER-INSPECTOR SHELLS - 09/26/2024 2:57 PM EDT Neurosurgery Discharge [...] to your incision Other Instructions: Call [facility] Neurosurgery with any questions, . documented in this encounterUniversity Hospitals TriPoint Medical Center05-07-2025 History and physical note* Jair Espinal MD - 09/23/2024 1:11 PM EDT HISTORY AND PHYSICAL INTERVAL NOTE: Anupama Vasquez 1970 [id number] H&P reviewed. The patient was examined and there are no changes to the H&P. Jair Espinal MD Source Note - JACQUELINE Roth - 09/21/2024 3:31 PM EDT Images from the original note were not included. [facility] [address] [place] [address], [address] [place] [address] * NEUROSURGERY DAILY PROGRESS NOTE DATE:09/21/2024 PATIENT'S [...] day please go to ON-Call Finder in [employer] or [employer] and use log in Mediamorph and search for PTH Neurosurgery JACQUELINE Roth 09/21/24 0410 JACQUELINE Roth 09/23/24 1311 * JACQUELINE Ervin [...] MS, who initially presented to [facility] from her rehab facility with complaints of altered mental status. Per chart review patient was recently treated for rhabdomyolysis. Her initial workup was significant for hyperkalemia with a potassium of 5.5, BRANDON with creatinine of 15.68, BUN 133, bicarb 20 and leukocytosis with WBC 12.7, also as CT head was obtained and demonstrated a 4.1 cm right temporal brain mass with ejvno-gq-sonn 60 mm shift which includes surrounding edema [...] Medical History: Diagnosis Date MS (multiple sclerosis) ([facility]) 2012 Past Surgical History: Procedure Laterality Date [...] Resource Strain: High Risk (06/04/2023) Received from [facility] Healthcare Overall Financial Resource Strain (CARDIA) Difficulty of Paying Living Expenses: Very hard Food Insecurity: No Food Insecurity (09/16/2024) Hunger Screening Food Insecurity - Worry: Never True Food Insecurity - Inability: Never True Transportation Needs: No Transportation Needs (08/28/2024) PRAPARE - Transportation Lack of Transportation (Medical): No Lack of Transportation (Non-Medical): No Physical Activity: Sufficiently Active (06/04/2023) Received from [facility] Exercise Vital Sign Days of Exercise per Week: 4 days Minutes of Exercise per Session: 40 min Stress: No Stress Concern Present (06/04/2023) Received from [facility] [place] of Occupational Health - Occupational Stress Questionnaire Feeling of Stress : Only a little Social Connections: Moderately Integrated (06/04/2023) Received from [facility] Social Connection and Isolation Panel [NHANES] Frequency of Communication with Friends and Family: Twice a week Frequency of Social Gatherings with Friends and Family: Once a week Attends Mu-Ism Services: 1 to 4 times per year [...] Procedure Component Value Units Date/Time Blood culture [[id number]] Collected: 09/19/24122 Specimen: Blood, Venous Updated: 09/19/24134 Blood culture [[id number]] Collected: 09/19/2425 Specimen: Blood, Venous Updated: 09/19/2444 [...] Procedure Component Value Units Date/Time Blood culture [[id number]] Collected: 09/19/24122 Specimen: Blood, Venous Updated: 09/19/24134 Blood culture [[id number]] Collected: 09/19/2425 Specimen: Blood, Venous Updated: 05/03/25 [...] 4.1 cm right temporal brain mass with hwskb-um-cuwc 60 mm shift which includes surrounding edema 4.1 cm right temporal brain mass with 6 mm nmubd-ez-ihas midline shift - closely monitor neuro status [...] titration of care by a Critical Care [employer] Consultant. Failure to do so may result in further organ system failure, imminent deterioration, or . JACQUELINE Ervin 09/19/24 0535 Cosigned by Sheila Jung MD at 09/19/2024 6:12 AM EDT documented in this encounterUniversity Hospitals TriPoint Medical Center05-07-2025 NoteXR CHEST 1 VW History: Preoperative exam. History of asthma. Procedure: Chest AP portable upright Comparison: 10/06/2024 Findings: The heart and lungs show no acute findings, and the mediastinum and gema are grossly negative . No pneumothorax. Impression: No acute pulmonary process. Finalized by Shen Farooq MD on 09/23/2024 12:23 [facility] 09-22-2024 Consult note* Melo Gill PA-C - 09/22/2024 11:32 AM EDT Associated Order(s): IP CONSULT TO CARDIOLOGY Images from the original note were not included. [facility] [address] [place] [address] HISTORY & PHYSICAL / CONSULT NOTE Anupama [...] with surrounding edema. Pt was transferred to [facility]. Pt still has altered mental status. From [...] injection 4 mg 4 mg intravenous Q6H [facility] JACQUELINE Vazquez 4 mg at09/22/24 0609 dextrose [...] injection 5,000 Units 5,000 Units subcutaneous Q8H [facility] JACQUELINE Roth 5,000 Units at 09/22/24 0608 [...] 15 mg 15 mg nasogastric Nightly JACQUELINE Hamliton 15 mg at 09/21/24 2244 polyethylene glycol [...] This note was completed using a voice film processing utility worker system. Every effort was made to ensure accuracy. However, inadvertent computerized film processing utility worker errors may be present. Melo Gill PA-C 09/22/24 1138 Cosigned by Ned Machado MD at 09/22/2024 1:27 PM EDT * Skye Lara MD - 09/21/2024 11:10 AM EDT Images from the original note were not included. [facility] - GEN 9 ICU [address] [facility] [id number] Hospital Medicine Consultation Patient: Anupama Vasquez Date of : 1970 Room: [place] [address] PCP: JACQUELINE LUNA Admission date: 09/18/2024 11:59 PM Hospital Day: 4 Encounter date: 09/21/24 Hospital Day: 4 SUBJECTIVE Reason for Consult: Assume Primary on transfer from ICU Referring Physician/Team: Neurosurgery/Critical Care Anupama Vasquez is a 54 y.o. female with a past medical history including MS, hypertension, hyperlipidemia, obstructive sleep apnea, obesity who initially presented to [facility] via EMS 09/18/2024 from her extended care facility for altered mental status. Initial lab work at [place] showed hyp erkalemia of 5.5 creatinine 15.68, [...] 4.1 cm right temporal brain mass with inrpw-qu-anso shift and surrounding edema. Case was discussed with neurosurgery and patient was transferredER to ER here to [facility] for further neurosurgery evaluation. She was admitted [...] patient was treated under our service at [facility] in August for nontraumatic rhabdomyolysis. At [...] for 30 days. 09/01/24 10/01/24 Tristen Lombardi APRN-INSPECTOR SHELLS mirtazapine (REMERON CANDI-TAB) 15 mg disintegrating tablet Dissolve 1 tablet (15 mg total) on tonguenightly. Not In System Ref Prov Code Status: Full Code Past Medical History: Patient has a past medical history of MS (multiple sclerosis) ([facility]) (2012). Past Surgical History: Patient has a [...] Brain CT from September 18 outside facility [place] PROCEDURE: Multiplanar multisequence images performed through the [...] for surgical planning. I favor a primary DIRECTOR GLOBAL SALES neoplasm such as a glioblastoma or astrocytoma. [...] for acute or suspicious pathology in the zgyxf-ho-hyzy. The trachea and bronchi are patent. No [...] page through On-Call Finder. JACQUELINE Hamilton 09/21/24 1544 I, Skye Lara MD, personally performed the [...] with panic attacks Hyperlipidemia, acquired Multiple [place] LORENZO (obstructive sleep apnea) Primary hypertension Primary [...] Medical History: Diagnosis Date MS (multiple sclerosis) ([facility] 2012 Past Surgical History: Past Surgical History: Procedure Laterality Date CARPAL TUNNEL RELEASE Left SHOULDER ARTHROSCOPY W/ ROTATOR CUFF REPAIR Left Social/ Cognitive/ Economic: readmitted from rehab facility Brief Clinical Summary: past medical history significant for MS, who initially presented to [facility] from her rehab facility with complaints [...] 22 08/29/2024 Lab Results Component Value Date [id number] 09/19/2024 Lab Results Component Value Date [...] injection 4 mg 4 mg intravenous Q6H [facility] Chip Zarate APRN-INSPECTOR SHELLS 4 mg at09/21/24 0616 dextrose (GLUTOSE) 40 [...] injection 5,000 Units 5,000 Units subcutaneous Q8H [facility] MARCELLE Spencer 5,000 Units at 09/21/24 0616 [...] premix) 2,000 mg intravenous PRN Steffanie Lozano APRN-INSPECTOR SHELLS Stopped at 09/21/24 0527 magnesium sulfate IVPB [...] Skin (per nursing flow sheets): Skin Color: [place]; Pale (09/21/24 0800) Skin Temp: Cool; Clammy [...] Body Weight: see above for wt trends [place] Body Weight: 61.4kg Percent [place] Body Weight: 193% Weight Changes: 8.5kg loss/3 months (7%) Body Mass Index: Body mass index is 40.92 kg/m . BMI Category: Obese class 3 (> or = 40.00) Comparative Standards: Estimated Energy Needs: 7508-2092 kcals daily. Method and weight used: 28-32 kcal/kg IBW Estimated Protein Needs: 74-123 grams daily. Method and weight used: 1.2-2g protein/kg IBW Estimated Fluid Needs: 6865-0436 ml daily. Method weight used: 28-32 ml/kg [...] 4.1 cm right temporal brain mass with ykqjm-tg-xrth shift 6 cm and surrounding edema. Urology [...] Medical History: Diagnosis Date MS (multiple sclerosis) ([facility]) 2012 Past Surgical History: Past Surgical History: [...] Resource Strain: High Risk (06/04/2023) Received from [facility] Overall Financial Resource Strain (CARDIA) Difficulty of Paying Living Expenses: Very hard Food Insecurity: No Food Insecurity (09/16/2024) Hunger Screening Food Insecurity - Worry: Never True Food Insecurity - Inability: Never True Transportation Needs: No Transportation Needs (08/28/2024) PRAPARE - Transportation Lack of Transportation (Medical): No Lack of Transportation (Non-Medical): No Physical Activity: Sufficiently Active (06/04/2023) Received from [facility] Exercise Vital Sign Days of Exercise per Week: 4 days Minutes of Exercise per Session: 40 min Stress: No Stress Concern Present (06/04/2023) Received from [facility] of Occupational Health - Occupational Stress Questionnaire Feeling of Stress : Only a little Social Connections: Moderately Integrated (06/04/2023) Received from [facility] Social Connection and Isolation Panel [NHANES] Frequency of Communication with Friends and Family: Twice a week Frequency of Social Gatherings with Friends and Family: Once a week Attends Mu-Ism Services: 1 to 4 times per year [...] Procedure Component Value Units Date/Time Blood culture [[id number]] Collected: 09/19/24 0123 Specimen: Blood, Venous Updated: 09/19/24134 Blood culture [[id number]] Collected: 09/19/24 002 Specimen: Blood, Venous Updated: [...] 4 mm nonobstructing right renal stone retroperitoneal adjqpepkar53/03/2025 Recommendations: 1. As above 2. check stone protocol CT to rule out stone. 3. Pending possible OR Saturday Neurosurgery. We will follow with you. Thank you very much. I appreciate being asked to help with this patient's care. Enid Eaton Jr., M.D. [facility] [phone] * Chip Zarate, CUSTOMER EXPERIENCE LEADER-INSPECTOR SHELLS - 09/19/2024 11:00 AM EDTAssociated Order(s): Consult Neurosurgery Images from the original note were not included. [facility] [address] [place] [address], [address] [place] [address] * NEUROSURGERY CONSULT NOTE DATE:09/19/2024 PATIENT'S NAME: [...] 4 mg, intravenous, Q6H [place], Chip Zarate, CUSTOMER EXPERIENCE LEADER-INSPECTOR SHELLS, 4 mg at 09/19/24 1326 dextrose (GLUTOSE) [...] premix), 500 mg, intravenous, Q12H, Chip Zarate, CUSTOMER EXPERIENCE LEADER-INSPECTOR SHELLS, Stopped at 09/19/24 0910 magnesium sulfate IVPB [...] Medical History: Diagnosis Date MS (multiple sclerosis) ([facility]) 2012 Past Surgical History: Procedure Laterality Date [...] [facility]- [facility] Please contact via Shippter first then can utilize Patient touch/VoceraEdge if needed 09/19/24 3:10 PM To find out which DIANE is on for the day please go to [employer] and use log in Mediamorph and search for PTH Neurosurgery (DIANE and [...] status. The patient apparently was seen at [facility] for altered mental status. She was found to have acute kidney injury with a creatinine 14.8. CT revealed a 4.1 cm right temporal mass with midline shift. The patient was found to have acute urine retention. Alexis catheter was placed. She was transferred to [facility] for further evaluation management and neurosurgical evaluation [...] retention Right temporal 4.1 brain mass with zeuja-hv-qkmq 60 mm shift with surrounding edema from [...] Resource Strain: High Risk (06/04/2023) Received from [facility] Overall Financial Resource Strain (CARDIA) Difficulty of Paying Living Expenses: Very hard Food Insecurity: No Food Insecurity (09/16/2024) Hunger Screening Food Insecurity - Worry: Never True Food Insecurity - Inability: Never True Transportation Needs: No Transportation Needs (08/28/2024) PRAPARE - Transportation Lack of Transportation (Medical): No Lack of Transportation (Non-Medical): No Physical Activity: Sufficiently Active (06/04/2023) Received from [facility] Exercise Vital Sign Days of Exercise per Week: 4 days Minutes of Exercise per Session: 40 min Stress: No Stress Concern Present (06/04/2023) Received from [facility] [place] of Occupational Health - Occupational Stress Questionnaire Feeling of Stress : Only a little Social Connections: Moderately Integrated (06/04/2023) Received from [facility] Social Connection and Isolation Panel [NHANES] Frequency of Communication with Friends and Family: Twice a week Frequency of Social Gatherings with Friends and Family: Once a week Attends Mu-Ism Services: 1 to 4 times per year [...] call us with any questions at: Office: [phone] Office Answering Service: [phone] Miriam Church M.D. This note was created with the assistance of a speech-recognition program. Although the intention is to generate a document that actually reflects the content of the visit, no guarantees can be provided that every mistake has been identified and corrected by editing. documented in this encounterUniversity Hospitals TriPoint Medical Center05-03-2025 Emergency department Note* sIaiah Driscoll RN - 09/19/2024 12:04 AM EDT Arrives via flight from [facility]. From a SNF, sent here for altered mental status and abnormal CT results, pt is alert but not oriented. * Lewis BotelloDO - 09/19/2024 12:03 AM EDT Images from the original note were not included. [facility] - EMERGENCY DEPARTMENT Pt Name: [...] consultation. Per records brought by EMS from [facility] ED patient was seen for urinary retention with GFR of 14.85, altered mental status, patient hada CT done which revealed 4.1 cm right temporal brain mass with tjric-ck-ireb 60 mm shift which includes surrounding edema. Patient is protected airway is able to communicate. History provided by: Patient Past Medical History: Past Medical History: Diagnosis Date MS (multiple sclerosis) ([facility]) 2012 Past Surgical History: Past Surgical History: [...] Resource Strain: High Risk (06/04/2023) Received from [facility] Overall Financial Resource Strain (CARDIA) Difficulty of Paying Living Expenses: Very hard Food Insecurity: No Food Insecurity (09/16/2024) Hunger Screening Food Insecurity - Worry: Never True Food Insecurity - Inability: Never True Transportation Needs: No Transportation Needs (08/28/2024) PRAPARE - Transportation Lack of Transportation (Medical): No Lack of Transportation (Non-Medical): No Physical Activity: Sufficiently Active (06/04/2023) Received from [facility] Exercise Vital Sign Days of Exercise per Week: 4 days Minutes of Exercise per Session: 40 min Stress: No Stress Concern Present (06/04/2023) Received from [facility] [place] of Occupational Health - Occupational Stress Questionnaire Feeling of Stress : Only a little Social Connections: Moderately Integrated (06/04/2023) Received from [facility] Social Connection and Isolation Panel [NHANES] Frequency of Communication with Friends and Family: Twice a week Frequency of Social Gatherings with Friends and Family: Once a week Attends Mu-Ism Services: 1 to 4 times per year [...] requested flight: Flight accepted, will be to [place] at 2300. 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 Wound Care Progress Note Patient: Anupama Vasquez Date of : 1970 Chief Complaint: Wound on buttocks New patient evaluation SUBJECTIVE/HPI: Anupama is a 54 y.o. female who presents to [facility] for evaluation of 1 [...] Medical History: Diagnosis Date MS (multiple sclerosis) ([facility]) 2012 Past Surgical History: Procedure Laterality Date [...] (Active) Wound Image 09/16/24 1323 Site Assessment Yellow;[place] 09/16/24 1323 [place]-wound Assessment Blanchable erythema;[place] 09/16/24 1323 Wound Length (cm) 1 cm [...] and buttocks. Short term goal: medical compliance intermission coordinator goal: wound closure Patient verbalize understanding of [...] Castillo APRN, RUBINA, CWS, ZOE Macdonaldt [facility]: [phone] JACQUELINE Germain 09/16/24 1350 documented in this encounterUniversity Hospitals TriPoint Medical Center04-30-2025 Instructions* Patient Instructions* Angela Chapa RN - 09/16/2024 1:20 PM EDT Wound Management Treatment Plan [facility] Wound Location(s): LEFT BUTTOCKS HOW TO [...] Description small Serous serous documented in this encounterUniversity Hospitals TriPoint Medical Center04-01-2025 History of Present illness Narrative* [...] Date Abnormal CBC 07/30/2023 Anxiety and depression ([facility]) Carpal tunnel syndrome 2002 Chronic diarrhea Chronic shoulder pain 05/01/2023 Class 3 severe obesity without serious comorbidity with body mass index (BMI) of 45.0 to 49.9 in adult ([facility]) 04/30/2023 Constipation Depression ([facility]) Hot flashes 07/30/2023 Hyperlipidemia, acquired ([facility]) 07/30/2023 Hypertension ([facility]) Knee pain, left anterior Major depression ([facility]) Morbid obesity with BMI of 40.0-44.9, adult ([facility]) Multiple sclerosis ([facility]) Night sweats 07/30/2023 LORENZO (obstructive sleep apnea) 07/30/2023 Pain of left middle finger Primary insomnia Rash Rectal burning Right knee pain, unspecified chronicity Sinusitis Stroke ([facility]) 07/30/2023 Urinary incontinence in female Vaginal discharge Vitamin D deficiency Past Surgical History: Procedure Laterality Date CARPAL TUNNEL RELEASE Right 2005 ECTOPIC SURGERY HYSTERECTOMY 1991 SHOULDER SURGERY Left 02/10/2024 Arthroscopy, RCR @ [facility] w/ MTP TUBAL LIGATION 1990 family [...] juices, and sugary drinks. documented in this [facility]04-01-2025 Instructions* Patient Instructions* Fred Gracia NP - 08/18/2024 9:20 AM EDT Cont escitalopram 10mg daily, as well as the aripriazole 10mg daily Increase the buspirone from 5mg , to 7.5mg and you can take this every 8 hour NEEDED for anxiety We will add the mirtazipine for sleep I will refer you to [facility] [facility] [place], they should call you documented in this [facility]03-17-2025 Telephone encounter Note* Telephone Encounter - Elva Rodriguez NP - 08/03/2024 11:58 AM EDT Patient needs to reschedule appointment she missed today. She is [place] patient and was scheduledwith [facility]. [facility] follow up visits are 30 minutes and new patients 40 minutes. This would be follow up visit. [facility] Healthcare Work Phone: [phone] Miscellaneous Notes* Telephone Encounter - Elva Rodriguez NP - 08/03/2024 11:58 AM EDT Patient needs to reschedule appointment she missed today. She is [place] patient and [facility]. [facility] follow up visits are 30 minutes and new patients 40 minutes. This would be follow up visit. documented in this encounterKindred HospitalEecshaxgdt57-03-1577 History of Present illness Narrative* Sherrie Boone [...] (ZyrTEC) 10 MG tablet documented in this [facility]01-29-2025 Instructions* Patient Instructions* Sherrie Boone NP - [...] THE NEAREST EMERGENCY DEPARTMENT. documented in this [facility]12-30-2024 History of Present illness Narrative* Fred Gracia [...] Date Abnormal CBC 07/30/2023 Anxiety and depression ([facility]/HCC) Carpal tunnel syndrome 2002 Chronic diarrhea Chronic shoulder pain 05/01/2023 Class 3 severe obesity without serious comorbidity with body mass index (BMI) of 45.0 to 49.9 in adult ([facility]) 04/30/2023 Constipation Depression ([facility]) Hot flashes 07/30/2023 Hyperlipidemia, acquired ([facility]) 07/30/2023 Hypertension ([facility]) Knee pain, left anterior Major depression ([facility]) Morbid obesity with BMI of 40.0-44.9, adult ([facility]) Multiple sclerosis ([facility]) Night sweats 07/30/2023 LORENZO (obstructive sleep apnea) 07/30/2023 Pain of left middle finger Primary insomnia Rash Rectal burning Right knee pain, unspecified chronicity Sinusitis Stroke ([facility]) 07/30/2023 Urinary incontinence in female Vaginal discharge Vitamin D deficiency Past Surgical History: Procedure Laterality Date CARPAL TUNNEL RELEASE Right 2005 ECTOPIC SURGERY HYSTERECTOMY 1991 SHOULDER SURGERY Left 02/10/2024 Arthroscopy, RCR @ [facility] w/ MTP TUBAL LIGATION 1990 family [...] (BMI) of 45.0 to 49.9 in adult ([facility]) Discussed with patient their BMI (actual, verses [...] takes meds sleeps 7 hours Multiple sclerosis ([facility]/HCC) Continue with neurology and treatment Encounter for screening mammogram for malignant neoplasm of breast Relevant Orders Bilateral screening mammogram Depression ([facility]/HCC) Husbands over the last few months, [...] (BMI) of 45.0 to 49.9 in adult ([facility]) Discussed with patient their BMI (actual, verses [...] with neurology and treatment documented in this encounterKindred HospitalHxjnthjcsi36-33-1176 Instructions* Patient Instructions* Fred Gracia NP - 05/18/2024 9:20 AM EST Keep escitalopram at 10mg, add ariprazole 5mg daily, add buspar 5mg twice a day for anxiety Follow up appt in 4 weeks Need mammogram-I will fax order to [facility] documented in this encounterKindred HospitalTfudoytkpj60-99-2111 Telephone encounter Note* Telephone Encounter - Vicenta [...] PT for shoulder. She noted the recommendation. Kindred HospitalQnhudlimwc35-22-3477 Miscellaneous Notes* Telephone Encounter - Vicenta Dill [...] and notify if requested. documented in this encounterKindred HospitalNerakhwqtd51-62-7760 Telephone encounter Note* Telephone Encounter - Vicenta [...] would inform PT and notify if requested. Kindred HospitalTqfzgdnzzn35-47-0219 History of Present illness Narrative* Alona King [...] called to verify the correctpatient, procedure, equipment, patient support associate and site/side marked as required. Patient was [...] used for breakthrough discomfort. documented in this encounterKindred HospitalFbxuetvxhr86-89-4384 Instructions* Patient Instructions* MARCELLE Perea - 04/27/2024 [...] used for breakthrough discomfort. documented in this encounterKindred HospitalGvpdwavwnq12-12-7566 Telephone encounter Note* Telephone Encounter - Fred Gracia NP - 04/27/2024 8:09 AM EST Please call to schedule pt a fu appt in the next month [place] Kindred HospitalXyzjonzmdr24-80-1519 Miscellaneous Notes* Telephone Encounter - Fred Gracia NP - 04/27/2024 8:09 AM EST Please call to schedule pt a fu appt in the next month [place] documented in this encounterKindred HospitalThqbwxpind24-19-4544 Telephone encounter Note* Telephone Encounter - Karol [...] her ass she's doing itand hung up. Kindred HospitalYttzxofwnc56-02-9014 Miscellaneous Notes* Telephone Encounter - Karol Juarez [...] doing itand hung up. documented in this encounterKindred HospitalVjfulueulu47-24-1391 History of Present illness Narrative* Fred Gracia NP - 03/05/2024 11:14 AM EDTAssociated [...] hours as needed for shoulder surgical pain., [employer] #72, 167.7, cm, 02/05/24 11:09:00 EDT, [...] Date Abnormal CBC 07/30/2023 Anxiety and depression ([facility]/HCC) Carpal tunnel syndrome 2002 Chronic diarrhea Chronic shoulder pain 05/01/2023 Class 3 severe obesity without serious comorbidity with body mass index (BMI) of 45.0 to 49.9 in adult ([facility]) 04/30/2023 Constipation Depression ([facility]) Hot flashes 07/30/2023 Hyperlipidemia, acquired ([facility]) 07/30/2023 Hypertension ([facility]) Knee pain, left anterior Major depression ([facility]) Morbid obesity with BMI of 40.0-44.9, adult ([facility]) Multiple sclerosis ([facility]) Night sweats 07/30/2023 LORENZO (obstructive sleep apnea) 07/30/2023 Pain of left middle finger Primary insomnia Rash Rectal burning Right knee pain, unspecified chronicity Sinusitis Stroke ([facility]/HCC) 07/30/2023 Urinary incontinence in female Vaginal discharge Vitamin D deficiency Past Surgical History: Procedure Laterality Date CARPAL TUNNEL RELEASE Right 2004 ECTOPIC SURGERY HYSTERECTOMY 1991 SHOULDER SURGERY Left 02/10/2024 Arthroscopy, RCR @ [facility] w/ MTP TUBAL LIGATION 1990 family [...] Relevant Orders Flu vaccine, MDCK, quadrivalent, PF ([id number]) (Flucelvax single dose syringe) Candidiasis of skin D/t her arm being in a sling, she is requesting we use nystatin powder as cream and ointment is notsomething she can properly use at this time Relevant Medications nystatin (Mycostatin) 010403 UNIT/GM powder documented in this encounterKindred HospitalFedxasbesw10-47-7693 History of Present illness Narrative* Eliazar Brooks [...] well. All questions answered. documented in this encounterKindred HospitalZlmmoslcsp40-25-0612 Telephone encounter Note* Telephone Encounter - Karol Crane - 02/14/2024 10:31 AM EDT MTP- PO [...] you please call patient and inform her. [place] [id number] Miscellaneous Notes* Telephone Encounter - Karol Juarez [...] patient and inform her. documented in this [facility]09-26-2024 Telephone encounter Note* Telephone Encounter - Priyanka Kim - 02/13/2024 2:31 PM EDT Was wanting to know if she could stop taking the percocet, pain isn't that bad and she was wanting to take her trazodone. [place] [id number] Miscellaneous Notes* Telephone Encounter - Priyanka Kim - 02/13/2024 2:31 PM EDT Was wanting to know if she could stop taking the percocet, pain isn't that bad and she was wanting to take her trazodone. documented in this [facility]09-23-2024 Hospital Discharge instructions Patient Education 02/10/2024 15:39:49 Shoulder Cryocuff Patient Instructions - FT (CUSTOM) 02/10/2024 15:39:45 Post Op Patient Instructions - FT (CUSTOM) 02/06/2024 18:01:14 Brooks - After Your Shoulder Arthroscopy (Revised 06/17/14) (CUSTOM) [place], [place] [facility] AFTER YOUR SHOULDER ARTHROSCOPY [...] your appointment. Eliazar Brooks, DO [facility] [address] [place], [place] [id number] Reviewed: 15 Follow Up Care 12/24/2023 11:37:06 With:YUE Santamaria Address: [address] [place] [address] Business (1) When:02/25/2024 14:30:00 Comments:Keep scheduled appointmentCall for any problems. [facility] 09-23-2024 NoteProgress Note-Physician Patient: ANUPAMA VASQUEZ Age: 53 years Sex: Female : 1970 Associated Diagnoses: None Author: Mynor Vega MD Postoperative Information Postoperative disposition: Postoperative disposition: To PACU. Optimetrix number: Optimetrix number [id number]. Anesthetic utilized: General. Regional: Interscalene Block. Health [...] Discharge when meets criteria ( To home ).[facility]Comment on above:Result Comment: Electronically Signed By: Mina BENITEZ, Mynor Markham\.br\Date and Time Signed: 02/10/24 16:19 EDT 02-10-2024 NotePatient Education - Text [place], [place] [facility] AFTER YOUR SHOULDER ARTHROSCOPY [...] your appointment. Eliazar Brooks, DO [facility] [address] [place] [address] Reviewed: 06-03[facility]09-23-[facility] Evaluation + Plan note Extracted from: Title:ANES Post-operative Note---General Author: Mynor Vega MD Date:02/10/24 Plan Transfer/Discharge: Transfer/Discharge Discharge when meets criteria ( To home ). Extracted from: Title:ANES Pre-operative Note 2022 Author:Mynor Young Date:02/10/24 Plan [place] [employer]esthesiologists (ASA) physical status classification: Class III. Anesthetic Preoperative Plan: Anesthesia General, and LMA. Regional Interscalene block. [facility] [id number] NoteProgress Note-Physician Patient: ANUPAMA VASQUEZ Age: 53 [...] hours as needed for shoulder surgical pain., [employer] #72, 167.7, cm, 02/05/24 11:09:00 EDT, [...] mL/hr PRN: (12) acetaminophen-oxyC (more content not included)...[facility] Comment on above:Result Comment: Electronically Signed By: Mina BENITEZ, Mynor Markham\.br\Date and Time Signed: 02/10/24 13:21 [id number] History of Present illness Narrative* Fred Gracia [...] oren jackson at noms * Fred Gracia, PRODUCT DEVELOPMENT - 02/03/2024 2:20 PM EDT Images from [...] Oral, 2 times daily, Take with food Dhqlzbm-Tsjrdnbhuhu-Fjeywakxlv ([employer]) 160-9-4.8 MCG/ACT aerosol 2 puffs, [...] Date Abnormal CBC 07/30/2023 Anxiety and depression ([facility]) Carpal tunnel syndrome 2002 Chronic diarrhea Chronic shoulder pain 05/01/2023 Class 3 severe obesity without serious comorbidity with body mass index (BMI) of 45.0 to 49.9 in adult ([facility]) 04/30/2023 Constipation Depression ([facility]) Hot flashes 07/30/2023 Hyperlipidemia, acquired ([facility]) 07/30/2023 Hypertension ([facility]) Knee pain, left anterior Major depression ([facility]) Morbid obesity with BMI of 40.0-44.9, adult ([facility]) Multiple sclerosis ([facility]) Night sweats 07/30/2023 LORENZO (obstructive sleep apnea) 07/30/2023 Pain of left middle finger Primary insomnia Rash Rectal burning Right knee pain, unspecified chronicity Sinusitis Stroke ([facility]) 07/30/2023 Urinary incontinence in female Vaginal discharge [...] (Augmentin) 875-125 MG tablet documented in this encounterKindred HospitalRhjopsrweb73-20-9393 History of Present illness Narrative* Renuka Bui [...] Morbid obesity with BMI of 40.0-44.9, adult ([facility]) Multiple sclerosis ([facility]) Night sweats 07/30/2023 LORENZO (obstructive sleep apnea) 07/30/2023 Pain of left middle finger Primary insomnia Rash Rectal burning Right knee pain, unspecified chronicity Sinusitis Stroke ([facility]) 07/30/2023 Urinary incontinence in female Vaginal discharge [...] 2 puffs, Inhalation, Every 6 hours PRN Wrybgjn-Kgffjntetpc-Tewmretkzo ([employer]) 160-9-4.8 MCG/ACT aerosol 2 puffs, [...] shoulder. Eliazar Brooks D.O. documented in this encounterKindred HospitalMkcuijwoin69-53-4217 Telephone encounter Note* Telephone Encounter - Michelle Lujan - 01/17/2024 12:20 PM EDT Called patient back to let her know that Jessica's preference is for the patient to remain at [facility] ifshe is to order the medication. Patient said she would establish care with local neurologist. [facility]08-30-2024 Miscellaneous Notes* Telephone Encounter - Michelle [...] patient: Self Return call phone number : [phone] Reason for call : Other : Brief description of concern :Please fax infusion orders to [phone] [facility]. documented in this encounterOhio[facility]08-27-2024 Telephone encounter Note * Telephone Encounter - Miri Soni - 01/14/2024 2:09 PM EDT [place] Call Name of caller : Anupama Vasquez Relationship to patient: Self Return call phone number : [phone] Reason for call : Other : Brief description of concern :Please fax infusion orders to [phone] [facility]. [facility] Work Phone: [phone] Telephone encounter Note* Telephone Encounter - She [...] to call if she changes her mind. [facility]08-01-2024 Miscellaneous Notes* Telephone Encounter - She [...] she changes her mind. documented in this encounterOhiohealth Berger Hospital04-19-2024 NoteHNO ID: [id number] Author: LASHAUN VASQUEZ PA-C Service: ? Author Type: Physician Hi Ranger Operator Type: Progress Notes Filed: 09/06/2023 10:11 Note Text: SPINE SURGERY OUTPATIENT CONSULT This is a virtual visit using [employer] Video Visit. It required patient-provider interaction for the medical decision making as documented below. I have communicated my name and active licensure. The patient's identity and physical location were verified at the time of this visit. Either the patient or their legal sales training representative has been informed of the risks and benefits of -- and alternatives to -- treatment through a remote evaluation and consents to proceed with the evaluation remotely. SERVICE DATE: 09/06/2023 PCP: Valdez Acosta MD REFERRING PROVIDER: Jessica Clarke [phone] [facility] [phone] Consult requested for an opinion regarding the [...] in the past as well. Works with [employer] for her MS. Saw an outside orthopedic [...] 7 1 (more content not included)...[facility]04-19-2024 History of Present illness Narrative* Lashaun Vasquez PA-C - 09/06/2023 9:41 AM EDT SPINE SURGERY OUTPATIENT CONSULT This is a virtual visit using [employer] Z[employer] Video Visit. It required patient- provider interaction for the medical decision making as documented below. I have communicated my name and active licensure. The patient's identity and physical location wereverified at the time of this visit. Either the patient or their legal sales training representative has been informed of the risks and benefits of -- and alternatives to -- treatment through a remote evaluation andconsents to proceed with the evaluation remotely. SERVICE DATE: 09/06/2023 PCP: Valdez Acosta MD REFERRING PROVIDER: Jessica Clarke [phone] [facility] [id number] Consult requested for an opinion regarding the [...] in the past as well. Works with [employer] for her MS. Saw an outside orthopedic [...] DATA REVIEW CC records independently reviewed ASSESSMENT/PLAN (R28.936) Left arm weakness (primary encounter diagnosis) Virtual [...] TIME: 9:41 AM PAGER: documented in this encounterOhiohealth [facility] Hospital04-09-2024 NoteHNO ID: [id number] Author: ANISHA SANCHEZ PA-C Service: ? Author Type: Physician Hi Ranger Operator Type: Progress Notes Filed: 08/27/2023 11:37 Note [...] from ongoing conservative management. BMI 47.78 [facility] History of Present illness Narrative* Anisha [...] Health Provider or Pain Management Provider at [facility]? No If answer is YES [...] the MRI/CT/myelogram was completed: [facility] Address: [address] [place] [address] MRI/CT/myelogram viewable in Epic: Yes If not, please provide [phone] to fax in imaging reports for review. [...] where the surgery was completed: Additional Comments [phone] (Home Phone) documented in this encounterOhiohealth Berger Hospital04-04-2024 NoteHNO ID: [id number] Author: ?, ?, ? Service: ? Author Type: ? Type: Progress Notes Filed: 08/27/2023 11:37 Note Text: Patient name: Anupama Vasquez Are you being referred by a [facility] Spine Health Provider or Pain Management Provider at [facility]? No If answer is YES [...] the MRI/CT/myelogram was completed: [facility] Address[address] [place] [address] MRI/CT/myelogram viewable in [facility]: Yes If not, please provide [phone] to fax in imaging reports for review. [...] where the surgery was completed: Additional Comments [phone] (Home Phone)[facility]04-03-2024 Miscellaneous Notes* Telephone Encounter - Renuka Ellison - 08/21/2023 4:17 PM EDT [place] Call Name of caller : Anupama Vasquez Relationship to patient: Self Return call phone number : [phone] Reason for call : Other : Brief [...] call to discuss further. documented in this encounterOhiohealth Berger Hospital02-28-2024 Miscellaneous Notes* Telephone Encounter - Elizabeth Victoria RN - 07/17/2023 9:04 AM EST Called patient, no answer. Message left indicating Myreks message would be sent with reason for [...] since c-spine MRI was completed locally outside [facility] in April. Orders already placed * Telephone Encounter - Anjelica Alba - 07/15/2023 3:18 PM EST [place] Call Name of caller : Steffanie Relationship to patient: Caregiver Return call phone number : appointments Reason for call : Order for MRI needed for Brain and Cervical documented in this encounterOhiohealth Berger Hospital02-21-2024 History of Present illness Narrative* Paris Toledo DO - 07/10/2023 6:00 PM EST [facility] Initial Evaluation July 10, 2023 This appointment was requested by Jessica Clarke PA-C, for my medical opinion regarding the evaluation and management of the patient's Anupama Vasquez problems, and my final recommendations will be communicated to the requesting health care provider by way of the shared medical record for internal providers or letter via the [employer] for external providers. SUBJECTIVE: Anupama Vasquez a 53 year old [facility], accompanied by self [...] PT several years ago (+) relief [place] Alcohol Abuse - No Drug Abuse - [...] No history of dysuria, frequency or incontinence TRAFFIC SIGNAL MECHANIC: Negative for abnormal vaginal bleeding, abnormal vaginal [...] supervised home exercise program (HEP): No 5. Chamber Walker: No Passive conservative therapy lasting 6 weeks [...] which included preparing to see the patient, rqzm-ct-mftl patient care, completing clinical documentation, performing a medically appropriate examination, counseling and educating the patient/family/caregiver, ordering medications, tests, or p rocedures, and communicating with other HCPs (not separately reported). Paris Toledo DO July 10, 2023 documented in this encounterOhiohealth Berger Hospital02-21-2024 NoteHNO ID: [id number] Author: PARIS TOLEDO DO Service: ? Author Type: Physician Type: Progress Notes Filed: 07/12/2023 11:26 Note Text: [facility] Initial Evaluation July 10, 2023 This appointment was requested by Jessica Clarke PA-C, for my medical opinion regarding the evaluation and management of the patient's Anupama Vasquez problems, and my final recommendations will be communicated to the requesting health care provider by way of the shared medical record for internal providers or letter via the [employer] for external providers. SUBJECTIVE: Anupama Vasquez a 53 year old presents to [facility], accompanied by self [...] PT several years ago (+) relief [place] Alcohol Abuse - No Drug Abuse - [...] No history of dysuria, frequency or incontinence TRAFFIC SIGNAL MECHANIC: Negative for abnormal vaginal bleeding, abnormal vaginal discharge MUSCULOSKELETAL: Negative for joint pain or swelling, back pain or muscle pain. NEUROLOGIC:Negative for focal numbness or weakness, headaches and dizziness or syncope. SKIN:Negative for lesions, rash, and itching. PSYCHIATRIC: Negative for sleep disturbance, mood disorder and recent psychosocial stressors. LIN[place]OD (more content not included)...[facility]02-07-2024 History of Present illness Narrative* [...] 8 weeks (around 08/21/2023). documented in this encounterKindred HospitalQtscabnvgx80-61-0344 NoteHNO ID: [id number] Author: She Brand RN Service: ? Author [...] states she had her tubes tied.[facility]12-14-2023 History of Present illness Narrative* Jessica Clarke PA-C - 05/02/2023 7:30 AM EST Images from the original note were not included. [facility] FOLLOWUP/ESTABLISHED PATIENT VIRTUAL [...] visit. Either the patient or their legal sales training representative has been informed of the risks [...] Flowsheet Row Office Visit from 03/22/2022 in [facility] Office Visit from 11/14/2021 in [facility] Distance Health from 09/15/2021 in [facility] Upper Extremity Domain T Score 32.58 -- [...] Flowsheet Row Office Visit from 03/22/2022 in [facility] Office Visit from 11/14/2021 in [facility] Distance Health from 09/15/2021 in [facility] Sleep Domain T Score 61.04 -- 64 [...] which included preparing to see the patient, ummp-xf-qkaw patient care, completing clinical documentation, obtaining and/or reviewing separately obtained history, counseling and educating the patient/family/caregiver, ordering medications, manuel ts, or procedures, communicating with other HCPs (not separately reported), and communicating results to the patient/family/caregiver. The patient was discussed with Dr. Escobar prior to appointment. Jessica Clarke PA-C documented in this encounterOhiohealth Berger Hospital12-14-2023 NoteHNO ID: [id number] Author: Jessica Clarke PA-C Service: ? Author Type: Physician Hi Ranger Operator Type: Progress Notes Filed: 05/02/2023 5:39 PM Note Text: [facility] MULTIPLE SCLEROSIS FOLLOWUP/ESTABLISHED PATIENT VIRTUAL VISIT [...] visit. Either the patient or their legal sales training representative has been informed of the risks [...] intake documentation Neuro-QoL Functions (higher=better functioning) Flowsheet [facility] Office Visit from 03/22/2022 in [facility] Office Visit from 11/14/2021 in [facility] from 09/15/2021 in [facility] Upper Extremity Domain T Score 32.58 -- 34 Lower Extremity Domain T Score 36.57 -- 37 Cognitive Function Domain T Score 38.32 39 41 Positive Affect Well Being T Score -- -- -- Ability To Participate In Social Roles T Score 29.36 39 43 Satisfaction With Social Roles T Score 40.46 -- 36 Neuro-QoL Symptoms (higher=worse symptoms) Flowsheet [facility] Office Visit from 03/22/2022 in [facility] Office Visit from 11/14/2021 in [facility] from 09/15/2021 in [facility] Sleep Domain T Score 61.04 -- 64 [...] total of (more content not included)...[facility] 04-18-2022 Evaluation note* Encounter Date Diagnosis Assessment Notes Treatment Notes Treatment Clinical Notes Mar, Change in bowel function (ICD-10 - R19.4) CONTINUE METAMUCIL DIRECTED RTO 1 YR [facility] Other 11-11-2022 Miscellaneous Notes* Telephone Encounter - Lily Rich Pss - 03/30/2022 2:06 PM EST Patient is calling today and would like to inform that she has a new PCP. Would like to ask that Dr Acosta be removed. She now sees a Dr Fred Arteaga in [place]. Any questions please call patient at [phone] documented in this encounterOhiohealth Berger Hospital11-03-2022 History of Present illness Narrative* Jessica Clarke PA-C - 03/22/2022 12:40 PM EDT Images from the original note were not included. [facility] FOR MULTIPLE SCLEROSIS FOLLOWUP/ESTABLISHED PATIENT VISIT [...] Flowsheet Row Office Visit from 03/22/2022 in [facility] Office Visit from 11/14/2021 in [facility] from 09/15/2021 in [facility] Upper Extremity Domain T Score 32.58 -- [...] Flowsheet Row Office Visit from 03/22/2022 in [facility] Office Visit from 11/14/2021 in [facility] from 09/15/2021 in [facility] Sleep Domain T Score 61.04 -- 64 Fatigue Domain T Score 58.38 -- 65 Anxiety Domain T Score 58.73 -- 61 Depression Domain T Score 60.06 58 60 Stigma Domain T Score 58.45 -- 57 Emotional Behavior Dyscontrol T Score -- -- -- *NeuroQoL is a multi-domain patient-reported quality of life questionnaire. PHQ-9 Flowsheet [facility] from 09/15/2021 in [facility] Office Visit from 11/01/2020 in [facility] PHQ-9 Score 11 16 *PHQ-9 is a questionnaire for depressive symptoms, with scores 0-4 indicating none, 5-9 mild, 10-14moderate, 15-19 moderately severe, and 20-27 severe symptoms. PROMIS-10 Flowsheet Row OT/PT/Speech Visit from 01/16/2022 in [facility] Occupational Therapy [facility] from 09/15/2021 in [facility] Global Physical Health T Score 32.4 32.4 [...] 5 Biceps 5 5 Triceps 5 5 Radio Journalist 5 5 Dorsal interossei 5 5 Lower [...] and Stretching Follow-up: In 6 months at [facility] I spent a total of 30 minutes on the date of the service which included preparing to see the patient, [id number] patient care, completing clinical documentation, obtaining and/or reviewing separately obtained history, performing a medically appropriate examination, counseling and educating the pat ient/family/caregiver, ordering medications, tests, or procedures, and communicating results to thepatient/family/caregiver. Jessica Clarke PA-C The chart was reviewed for possible participation in the following studies:None documented in this encounterOhiohealth Berger Hospital10-18-2022 History of Present illness Narrative* Lizbeth [...] Care Gap or Scheduling/Wellness visits Payer: Payor: [facility] MEDICAID / Plan: [facility] PLAN MEDICAID OF [place] / Product Type: [...] 06, 2022 4:06 PM documented in this encounterOhiohealth Berger Hospital09-26-2022 Miscellaneous Notes* Telephone Encounter - Jaycee Haley - 02/12/2022 9:08 AM EDT Called pt LVM to see about setting up pt and psycology. 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; 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, [...] flexion 5/ 5/5 Wrist extension 5/ 5/5 Radio Journalist strength (Alexis position 2) 70 lbs 53 [...] object from floor: 4 = able to pecan picker object safely and easily Looking over [...] test: Right 24.13, 23.06 seconds; CV = 0.16468% Left 22.41, 26.54 seconds; CV = 0.02810% Norms for a 51 year old female [...] L 19.6 3.4 HAND TESTS: 5 position Aelxis R L pos 1 55 52 pos 2 77 75 pos 3 80 78 pos 4 70 55 pos 5 60 35 YES Valid YES Valid Right printed circuit boards contact printer best result: 80 lbs; percentile rank = 75 % Left printed circuit boards contact printer best result: 78 lbs; percentile rank = 90 % Tremors?: No Hand Radio Journalist Norms: MALE Percentile - lbs. 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 X Agree Disagree 2. In a [...] 8 units: 113-127 mins Physical Performance Test (23918) Skilled Intervention: Neurologically-based functional capacity evaluation specific to the diagnosisof Multiple Sclerosis. Proper administration and selection of physical performance test based on clinical presentation, deficits, and needs. SUN Smalls/Verena documented in this encounterOhiohealth Berger Hospital07-27-2022 Evaluation note* Encounter Date Diagnosis Assessment Notes Treatment Notes Treatment Clinical Notes Nov, Change in bowel function (ICD-10 - R19.8) ENCOURAGED METAMUCIL CAPSULES DAILY. Nov, Tubular adenoma (ICD-10 - D36.9) WILL REPEAT COLON IN 5 YEARS Nov, Diverticulosis (ICD-10 - K57.90) Nov, Hemorrhoids (ICD-10 - K64.9) [facility] Other 06-28-2022 History of Present illness Narrative* Sarthak Escobar MD, PhD - 11/14/2021 8:31 AM EDT Images from the original note were not included. [facility] FOR MULTIPLE SCLEROSIS FOLLOWUP/ESTABLISHED PATIENT VISIT [...] (higher=better functioning) Office Visit from 11/14/2021 in [facility] Health from 09/15/2021 in [facility] OfficeVisit from 11/01/2020 in [facility] Upper Extremity Domain T Score 34 30 Lower Extremity Domain T Score 37 40 Cognitive Function Domain T Score 39 41 36 Positive Affect Well Being T Score Ability To Participate In Social Roles T Score 39 43 46 Satisfaction With Social Roles T Score 36 39 Neuro-QoL Symptoms (higher=worse symptoms) Office Visit from 11/14/2021 in [facility] Health from 09/15/2021 in [facility] OfficeVisit from 11/01/2020 in [facility] Sleep Domain T Score 64 64 Fatigue Domain T Score 65 69 Anxiety Domain T Score 61 65 Depression Domain T Score 58 60 66 Stigma Domain T Score 57 63 Emotional Behavior Dyscontrol T Score *NeuroQoL is a multi-domain patient-reported quality of life questionnaire. PHQ-9 [facility] from 09/15/2021 in [facility] Office Visit from 11/01/2020 in [facility] PHQ-9 Score 11 16 *PHQ-9 is a questionnaire for depressive symptoms, with scores 0-4 indicating none, 5-9 mild, 10-14moderate, 15-19 moderately severe, and 20-27 severe symptoms. PROMIS-10 [facility] Health from 09/15/2021 in [facility] Office Visit from 11/01/2020 in [facility] Global Physical Health T Score 32.4 32.4 [...] 5 Biceps 5 5 Triceps 5 5 Radio Journalist 5 5 Dorsal interossei 5 5 Lower [...] Lymph 1.00 - 4.00 k/uL 0.60 (L) [place]% % 12.0 Abs [place] <0.87 k/uL 0.74 Eosin% % 2.4 Abs [...] 7T brain MRI in 3 months at [place]. Will hold next infusion until reviewing MRI. [...] and Stretching Follow-up: In 3 months at [place] with [facility] I spent a total of 40 minutes on the date of the service which included preparing to see the patient, [id number] patient care, completing clinical documentation, obtaining and/or reviewing separately obtained history, performing a medically appropriate examination, counseling and educating the pat ient/family/caregiver, ordering medications, tests, or procedures, independently interpreting results (not separately reported) and communicating results to the patient/family/caregiver. The patient was discussed with Dr. Escobar. Jessica Clarke PA-C [facility] STAFF PHYSICIAN NOTE OF PERSONAL INVOLVEMENT [...] Sarthak Escobar MD, PhD Associate Staff Neurologist [facility] for Multiple Sclerosis documented in this encounterOhiohealth Berger Hospital06-28-2022 History of Present illness Narrative* Eliazar [...] 2021 TIME: 7:43 AM documented in this encounterOhiohealth Berger Hospital04-29-2022 History of Present illness Narrative* Jessica Clarke PA-C - 09/15/2021 11:19 AM EDT Images from the original note were not included. [facility] FOR MULTIPLE SCLEROSIS FOLLOWUP/ESTABLISHED PATIENT VIRTUAL [...] - mood worse Fred Gracia is new PRODUCT DEVELOPMENT PCP - changed anxiety and depression meds [...] Functions (higher=better functioning) Appointment from 09/15/2021 in [facility] Office Visit from 11/01/2020 in [facility] Office Visit from 07/31/2019 in [facility] Upper Extremity Domain T Score 34 30 41.73 Lower Extremity Domain T Score 37 40 41.61 Cognitive Function Domain T Score 41 36 45 Positive Affect Well Being T Score 40.79 Ability To Participate In Social Roles T Score 43 46 39.92 Satisfaction With Social Roles T Score 36 39 43.36 Neuro-QoL Symptoms (higher=worse symptoms) Appointment from 09/15/2021 in [facility] Office Visit from 11/01/2020 in [facility] Office Visit from 07/31/2019 in [facility] Sleep Domain T Score 64 64 64.93 [...] available 4. Consult OT - [facility] at [place] 5. Continue with PCP as planned I spent a total of 20 minutes on the date of the service which included preparing to see the patient, [id number] patient care, completing clinical documentation, obtaining and/or reviewing separately obtained history, counseling and educating the patient/family/caregiver, ordering medications, manuel ts, or procedures and communicating results to the patient/family/caregiver. Jessica Clarke PA-C documented in this encounterOhiohealth Berger Hospital04-19-2022 [facility]* Encounter Date Diagnosis Assessment Notes Treatment Notes Treatment Clinical Notes Jul, Constipation (ICD-10 - K59.00) Jul, Rectal bleeding (ICD-10 - K62.5) Jul, Rectal pain (ICD-10 - K62.89) Sample of Recticare cream given to patient Jul, Change in stool caliber (ICD-10 - R19.4) [place] [facility] Other Evaluation + Plan note Future Appointments Appointment Date:02/10/2024 03:00:00 PM Scheduled Provider: Location:[facility] Appointment Type:Surgery FT [facility] Evaluation + Plan note Future Appointments Appointment Date:02/17/2025 08:30:00 AM Scheduled Provider:Silvia Bustos PA-C Location:[facility] Appointment Type:URO Office Visit [facility] evaluation noteNo assessment information available [facility] Work Phone: Evaluation note* Diagnosis Multiple sclerosis, relapsing-remitting (HCC) Multiple sclerosis documented in this encounter [facility] note* Diagnosis Multiple sclerosis (HCC)- Primary Multiple sclerosis Multiple sclerosis, relapsing-remitting (HCC) Multiple sclerosis documented in this encounter [facility] noteNo InformationNort [employer] Other Evaluation note* Diagnosis Multiple sclerosis, relapsing-remitting (HCC) Multiple sclerosis documented in this encounter [facility] note* Diagnosis Multiple sclerosis, relapsing-remitting (HCC)- Primary Multiple sclerosis documented in this encounter [facility] note* Diagnosis Encounter for screening mammogram for breast cancer documented in this encounter [facility] note* Diagnosis Multiple sclerosis, relapsing-remitting (HCC) Multiple sclerosis documented in this encounter [facility] note* Diagnosis Multiple sclerosis (HCC)- Primary Multiple sclerosis documented [facility]* Diagnosis Multiple sclerosis, relapsing-remitting (HCC)- Primary Multiple sclerosis [facility]* Diagnosis Multiple sclerosis, relapsing-remitting (HCC)- Primary Multiple sclerosis [facility]* Diagnosis Encounter for screening mammogram for breast cancer documented [facility]* Diagnosis Multiple sclerosis (HCC)- Primary Multiple sclerosis [facility]* Diagnosis Multiple sclerosis (CMS/HCC)- Primary Multiple sclerosis Primary hypertension (CMS/HCC) Unspecified essential hypertension Anxiety and depression (CMS/HCC) COPD with exacerbation (CMS/HCC) Non-recurrent acute suppurative otitis media of left ear without spontaneous rupture of tympanic membrane [facility] Cervical disc disorder with radiculopathy- Primary Brachial neuritis or radiculitis nos Cervical stenosis of spine Spinal stenosis in cervical region Chronic neck pain Cervicalgia documented in this encounter [facility]* Diagnosis Multiple sclerosis (HCC)- Primary Multiple sclerosis [facility]* Diagnosis Cervical stenosis of spine- Primary Spinal stenosis in cervical region documented [facility]* Diagnosis Left arm weakness- Primary Other musculoskeletal symptoms referable to limbs documented [facility] this encounter [facility]* Diagnosis Multiple sclerosis (HCC)- Primary Multiple sclerosis Vitamin D deficiency Unspecified vitamin D deficiency documented [facility]* Diagnosis S/P arthroscopy of left shoulder- Primary documented in this encounter [facility]* Diagnosis S/P arthroscopy of left shoulder documented in this encounter [facility]* Diagnosis Class 3 [...] left shoulder- Primary documented in this encounter [facility]* Diagnosis Class 3 severe [...] other sinus- Primary documented in this encounter [facility]* Diagnosis Class 3 severe [...] and depression (CMS/HCC) documented in this encounter [facility]* Diagnosis Pre-op testing- Primary Unspecified pre-operative examination Rotator cuff impingement syndrome of left shoulder documented in this encounter [facility]* Diagnosis Diverticulitis- Primary Diverticulitis of colon (without mention of hemorrhage) Class 3 severe obesity without serious comorbidity with body mass index (BMI) of 45.0 to 49.9 in adult, unspecified obesity type (CMS/HCC) documented in this encounter [facility] note* Diagnosis Class 3 [...] of left shoulder documented in this encounter [facility]* Diagnosis Multiple sclerosis (CMS/HCC)- Primary Multiple sclerosis Rotator cuff impingement syndrome of left shoulder- Primary documented in this encounter [facility]* Diagnosis Class 3 severe [...] Other abnormal blood chemistry Anxiety and depression ([facility]) Contact with and (suspected) exposure to viral [...] (male)(female) Yeast dermatitis documented in this encounter [facility]* Diagnosis Dermatitis associated with moisture- Primary Pressure injury of left buttock, stage 2 (CMS-HCC) [facility]* Diagnosis Altered mental status, unspecified [...] anxiety disorder with panic attacks Multiple sclerosis ([facility]-HCC) Multiple sclerosis [facility]* Diagnosis Brain tumor ([facility]-HCC)- Primary Neoplasm of unspecified nature of brain Double vision Diplopia [facility]* Diagnosis Glioblastoma (CMS-HCC)- Primary Malignant neoplasm of brain, unspecified site [facility] Diagnosis GBM (glioblastoma multiforme) ([facility]-HCC)- Primary Malignant neoplasm of brain, unspecified site [facility]* Diagnosis GBM (glioblastoma multiforme) (CMS-HCC)- Primary Malignant neoplasm of brain, unspecified site [facility]* Diagnosis GBM (glioblastoma multiforme) ([facility]-HCC)- Primary Malignant neoplasm of brain, unspecified site documented [facility] encounter [facility] Narrative - Reported* Type Description Date Surgical History ectopic Surgical History tubal ligation Surgical History caprpal tunnel release [facility] Other History general Narrative - Reported* Type Description Date Surgical History ectopic Surgical History tubal ligation Surgical History caprpal tunnel release Hospitalization History see above [facility] Other Hospital course Narrative No data available for this section [facility] Discharge instructions No data available for this section [facility] InstructionsNot on filedocumented in this encounter [facility] [...] note No data available for this section [facility] Reason for referral (narrative)* Diagnostic Procedure Only (Routine) - Pending Review Specialty Diagnoses / Procedures Referred By Atilio carbone Referred To Contact [facility] Diagnoses Encounter for screening mammogram for breast cancer Procedures ALIYA SCREENING SCREENING MAMMOGRAPHY BI 2-VIEW BREAST INC CAD Karla, Mazen, MD [address] [place] [address] [facility] [address] [place] [address] Referral ID Status Reason Start Date Expiration Date Visits Requested Visits Authorized [id number] Pending Review Auto-Generat ed Referral 11/15/2021 12/15/[address] [facility] for referral (narrative)* Diagnostic Procedure Only (Routine) - Pending Review Specialty Diagnoses / Procedures Referred By Anishaac t Referred To Contact [facility] Diagnoses Encounter for screening mammogram for breast cancer Procedures ALIYA SCREENING SCREENING MAMMOGRAPHY BI 2-VIEW BREAST INC Valdez Cohen MD [address] [place] [address] [facility] [address] [place] [address] Referral ID Status Reason Start Date Expiration Date Visits Requested Visits Authorized [id number] Pending Review Auto-Generat ed Referral 10/17/2022 11/16/[address] [facility] for referral (narrative)* Consultation (Routine) Specialty Diagnoses / Procedures Referred By Atilio t Referred To Contact Neurology [address] [address] Aron Chinchilla MD [address] [facility] [address] [place] [address] Referral ID Status Reason Start Date Expiration Date V isits Requested Visits Authorized Specialty Services [facility] (n[facility]ative)No reason for referral information availablePremier [facility] Work Phone: Reason for visit NarrativeREFERRED BY FRED GRACIA FOR CONSTIPATION, (REFERRAL NOTE RECEIVED)[facility] Other Reason for visit Narrative* Rehabilitation - Outpatient (Routine) - Authorized Specialty Diagnoses / Procedures Referred By Atilio carbone Referred To Contact Physical Therapy Diagnoses S/P arthroscopy of left shoulder Procedures PA OFFICE/OUTPATIENT NEW HIGH MDM 60 MINUTES Eliazar Brooks, DO [address] [place] [address] Phone: tel: fax: Aria Kumar PT Referral ID Status Reason Start Date Expiration Date Visits Requested Visits Authorized [id number] Authorized Specialty Services Required 04/10/2024 12 12 [facility] Healthcare Summary Purpose Family History Relationship [...] Multiple sclerosis, relapsing-remitting (HCC) Procedures CONSULT TO HEAT TREATING FURNACE TENDER OCCUPATIONAL THERAPY EVAL HIGH COMPLEX 60 MINS Jessica Clarke PA-C [address] [place] [address] [facility] [place] [address] [place] [address] Referral ID Status Reason Start Date Expiration Date Visits Requested Visits Authorized [id number] Pending Review Auto-Generat ed Referral 09/15/2021 09/15/2022 1 1 Specialty Diagnoses / Procedures Referred By Contac t Referred To Contact [facility] IMAGING Diagnoses Multiple sclerosis, relapsing-remitting (HCC) Procedures MRI BRAIN WO/W IVCON MRI BRAIN BRAIN STEM W/O W/CONTRAST MATERIAL Jessica Clarke PA-C [address] [id number] [facility] Referral ID Status Reason Start Date Expiration Date Visits Requested Visits Authorized [id number] Pending Review Auto-Generat ed Referral 09/15/2021 10/15/2022 1 1 Referral ID Status Reason Start Date Expiration Date V isits Requested Visits Authorized [id number] Closed Auto-Generate d Referral 09/15/2021 11/25/2021 1 1 Specialty Diagnoses / Procedures Referred By Contac t Referred To Contact [facility] IMAGING Diagnoses Multiple sclerosis, relapsing-remitting (HCC) Procedures MRI BRAIN WO/W IVCON MRI BRAIN BRAIN STEM W/O W/CONTRAST MATERIAL Sarthak Escobar MD, PhD [address] [place] [address] [facility] Referral ID Status Reason Start Date Expiration Date Visits Requested Visits Authorized [id number] Pending Review Auto-Generat ed Referral 11/14/2021 12/14/2022 1 1 Specialty Diagnoses / Procedures Referred By Contac t Referred To Contact MR IMAGING Diagnoses Multiple sclerosis, relapsing-remitting (HCC) Procedures MRI CERVICAL SPINE WO/W IVCON MRI SPINAL CANAL CERVICAL W/O & W/CONTR MATRL Jessica Clarke PA-C [address] [place] [address] Mr Imaging Referral ID Status Reason Start Date Expiration Date Visits Requested Visits Authorized [id number] Pending Review Auto-Generat ed Referral 08/30/2022 09/29/2023 1 1 Referral ID Status Reason Start Date Expiration Date Visits Requested Visits Authorized [id number] Pending Review Auto-Generat ed Referral 08/30/2022 09/29/2023 1 1 Specialty Diagnoses / Procedures Referred By Contac t Referred To Contact [facility] Diagnoses Cervical disc disorder with radiculopathy Procedures CONSULT TO PHYSICAL THERAPY PHYSICAL THERAPY EVALUATION HIGH COMPLEX [address] [place] [address] AALIYAH DOYLE [address] [place] [address] [facility] [place] [address] [place] [address] Referral ID Status Reason Start Date Expiration Date Visits Requested Visits Authorized [id number] Pending Review Auto-Generat ed Referral 07/10/2023 07/09/2024 1 1 Specialty Diagnoses / Procedures Referred By Contac t Referred To Contact MR IMAGING Diagnoses Multiple sclerosis (HCC) Procedures MRI BRAIN WO/W IVCON MRI BRAIN BRAIN STEM W/O W/CONTRAST MATERIAL Jessica Clarke PA-C [address] [place] [id number] Mr Imaging [place] [address] Referral ID Status Reason Start Date Expiration Date Visits Requested Visits Authorized [id number] Pending Review Auto-Generat ed Referral 07/16/2023 08/14/2024 1 1 Specialty Diagnoses / Procedures Referred By Contac t Referred To Contact Diagnoses Cervical stenosis of spine Procedures CONSULT TO SPINE SURGERY OFFICE/OUTPATIENT [facility] MDM 60 MINUTES Jessica Clarke PA-C [address] [place] [address] Referral ID Status Reason Start Date Expiration Date Visits Requested Visits Authorized [id number] Authorized PCP Requested Referral 08/22/2023 08/21/2024 1 1 Specialty Diagnoses / Procedures Referred By Contac t Referred To Contact MR IMAGING Diagnoses Left arm weakness Procedures MRI CERVICAL SPINE WO IVCON MRI SPINAL CANAL CERVICAL W/O CONTRAST Lashaun Banda PA-C [address] [place] [address] Mr Imaging [facility] Referral ID Status Reason Start Date Expiration Date Visits Requested Visits Authorized [id number] Pending Review Auto-Generat ed Referral 09/06/2023 10/05/2024 1 1 Specialty Diagnoses / Procedures Referred By Contac t Referred To Contact [facility] Diagnoses Left arm weakness Procedures EMG(NEURO/NI) NERVE CONDUCTION STUDIES 9-10 STUDIES Lashaun Vasquez PA-C [address] [place] [address] Neu[facility] [place] [address] [place] [address] Referral ID Status Reason Start Date Expiration Date Visits Requested Visits Authorized [id number] Pending Review Auto-Generat ed Referral 09/06/2023 09/05/2024 1 1 Specialty Diagnoses / Procedures Referred By Contac t Referred To Contact XR IMAGING Diagnoses Left arm weakness Procedures XR CERV OTHER 4V AP/LAT/FLX/EXT RADEX SPINE CERVICAL 4 OR 5 VIEWS Lashaun Vasquez PA-C [address] [place] [address] Xr Imaging [place] [address] Referral ID Status Reason Start Date Expiration Date Visits Requested Visits Authorized [id number] Pending Review Auto-Generat ed Referral 09/06/2023 10/05/2024 1 1 Specialty Diagnoses / Procedures Referred By Contac t Referred To Contact Physical Therapy Diagnoses S/P arthroscopy of left shoulder Procedures PA OFFICE/OUTPATIENT NEW [facility] MDM 60 MINUTES Eliazar Brooks, DO [address] [place] [address] Aria Kumar PT Referral ID Status Reason Start Date Expiration Date Visits Requested Visits Authorized [id number] Pending Review Specialty Services Required 02/25/2024 08/23/2024 [...] and content) DATE CREATED AUTHOR 11/12/2017 [facility] [employer] DATE CREATED AUTHOR AUTHOR'S ORGANIZ ATION 11/13/2017 [facility] DATE CREATED AUTHOR AUTHOR'S ORGANIZ ATION 10/02/2022 [facility] DATE CREATED AUTHOR AUTHOR'S ORGANIZ ATION 12/21/2023 [facility] DATE CREATED AUTHOR AUTHOR'S ORGANIZ ATION 02/07/2024 [facility] DATE CREATED AUTHOR AUTHOR'S ORGANIZ ATION 08/19/2024 [facility] DATE CREATED AUTHOR AUTHOR'S ORGANIZ ATION 09/03/2024 [facility] DATE CREATED AUTHOR AUTHOR'S ORGANIZ ATION 09/24/2024 [facility] DATE CREATED AUTHOR AUTHOR'S ORGANIZ ATION 10/18/2024 [facility] DATE CREATED AUTHOR AUTHOR'S ORGANIZ ATION 10/19/2024 [facility] DATE CREATED AUTHOR AUTHOR'S ORGANIZ ATION 11/15/2024 [facility] DATE CREATED AUTHOR AUTHOR'S ORGANIZ ATION 11/21/2024 [facility] DATE CREATED AUTHOR AUTHOR'S ORGANIZ ATION 11/25/2024 [facility] Medical History (unrecognize d section and content) Includes: Medical History in patient's chartNo Medical History Recorded Evaluations & Outcomes (unre cognized section and content) Includes: Evaluations & Outcomes for active GoalsNo Outcomes Recorded Care Teams (unrecognized sec tion and content) Team Status: Inactive Member Role Status Dates Services Family [facility] Primary Care Provider Active Liyah Rosa MD Attending Provider Active Team Status: Active Member Role Status Dates Services Family [facility] Primary Care Provider Active Test Equipment Mechanic Relationship Specialty Start Date End Date Valdez Acosta MD [address] [place] [address] PCP - General Internal Medicine 11/01/20 Test Equipment Mechanic Relationship Specialty Start Date End Date Valdez Acosta MD [address] [place] [address] PCP - General Internal Medicine 11/01/20 Test Equipment Mechanic Relationship Specialty Start Date End Date Valdez Acosta MD [address] [place] [address] PCP - General Internal Medicine 11/01/20 Test Equipment Mechanic Relationship Specialty Start Date End Date Valdez Acosta MD [address] [place] [address] PCP - General Internal Medicine 11/01/20 Test Equipment Mechanic Relationship Specialty Start Date End Date Valdez Acosta MD [address] [place] [address] PCP - General Internal Medicine 11/01/20 Test Equipment Mechanic Relationship Specialty Start Date End Date Valdez Acosta MD [address] [place] [address] PCP - General Internal Medicine 11/01/20 Test Equipment Mechanic Relationship Specialty Start Date End Date Valdez Acosta MD [address] [place] [address] PCP - General Internal Medicine 11/01/20 Test Equipment Mechanic Relationship Specialty Start Date End Date Valdez Acosta MD [address] [place] [address] PCP - General Internal Medicine 11/01/20 Test Equipment Mechanic Relationship Specialty Start Date End Date Valdez Acosta MD [address] [place] [address] PCP - General Internal Medicine 11/01/20 Test Equipment Mechanic Relationship Specialty Start Date End Date Valdez Acosta MD [address] [place] [address] PCP - General Internal Medicine 11/01/20 Test Equipment Mechanic Relationship Specialty Start Date End Date Valdez Acosta MD [address] [place] [address] PCP - General Internal Medicine 11/01/20 Test Equipment Mechanic Relationship Specialty Start Date End Date Valdez Acosta MD [address] [place] [address] PCP - General Internal Medicine 11/01/20 Test Equipment Mechanic Relationship Specialty Start Date End Date Valdez Acosta MD [address] [place] [address] PCP - General Internal Medicine 11/01/20 Test Equipment Mechanic Relationship Specialty Start Date End Date Valdez Acosta MD [address] [place] [address] PCP - General Internal Medicine 11/01/20 Test Equipment Mechanic Relationship Specialty Start Date End Date Maxim Lanza MD [address] [place] [address] PCP - General Family Medicine 04/22/23 Fred Gracia NP [address] [place] [address] Nurse Practitioner Family Medicine 05/20/22 Test Equipment Mechanic Relationship Specialty Start Date End Date Maxim Lanza MD [address] [place] [address] PCP - General Family Medicine 04/22/23 Fred Gracia NP [address] [place] [address] Nurse Practitioner Family Medicine 05/20/22 Test Equipment Mechanic Relationship Specialty Start Date End Date Valdez Acosta MD [address] [place] [address] PCP - General Internal Medicine 11/01/20 Test Equipment Mechanic Relationship Specialty Start Date End Date Valdez Acosta MD [address] [place] [address] PCP - General Internal Medicine 11/01/20 Test Equipment Mechanic Relationship Specialty Start Date End Date Valdez Acosta MD [address] [place] [address] PCP - General Internal Medicine 11/01/20 Test Equipment Mechanic Relationship Specialty Start Date End Date Valdez Acosta MD [address] [place] [address] PCP - General Internal Medicine 11/01/20 Test Equipment Mechanic Relationship Specialty Start Date End Date Valdez Acosta MD [address] [place] [address] PCP - General Internal Medicine 11/01/20 Test Equipment Mechanic Relationship Specialty Start Date End Date Valdez Acosta MD [address] [place] [address] PCP - General Internal Medicine 11/01/20 Test Equipment Mechanic Relationship Specialty Start Date End Date Valdez Acosta MD [address] [place] [address] PCP - General Internal Medicine 11/01/20 Test Equipment Mechanic Relationship Specialty Start Date End Date Maxim Lanza MD [address] [place] [address] PCP - General Family Medicine 07/15/23 Fred Gracia NP [address] [place] [address] Primary Care Provider Family Medicine 05/20/22 Test Equipment Mechanic Relationship Specialty Start Date End Date Maxim Lanza MD [address] [place] [address] PCP - General Family Medicine 07/15/23 Fred Graica NP [address] [place] [address] Primary Care Provider Family Medicine 05/20/22 Test Equipment Mechanic Relationship Specialty Start Date End Date Maxim Lanza MD [address] [place] [address] PCP - General Family Medicine 07/15/23 Fred rGacia NP [address] [place] [address] Primary Care Provider Family Medicine 05/20/22 Test Equipment Mechanic Relationship Specialty Start Date End Date Maxim Lanza MD [address] [place] [address] PCP - General Family Medicine 07/15/23 Fred Gracia NP [address] [place] [address] Primary Care Provider Family Medicine 05/20/22 Test Equipment Mechanic Relationship Specialty Start Date End Date Maxim Lanza MD [address] [place] [address] PCP - General Family Medicine 07/15/23 Fred Gracia NP [address] [place] [address] Primary Care Provider Family Medicine 05/20/22 Test Equipment Mechanic Relationship Specialty Start Date End Date Maxim Lanza MD [address] [place] [address] PCP - General Family Medicine 07/15/23 Fred Gracia NP [address] [place] [address] Primary Care Provider Family Medicine 05/20/22 Test Equipment Mechanic Relationship Specialty Start Date End Date Maxim Lanza MD [address] [place] [address] PCP - General Family Medicine 07/15/23 Fred Gracia NP [address] [place] [address] Primary Care Provider Family Medicine 05/20/22 Test Equipment Mechanic Relationship Specialty Start Date End Date Maxim Lanza MD [address] [place] [address] PCP - General Family Medicine 07/15/23 Fred Garcia NP [address] [place] [address] Primary Care Provider Family Medicine 05/20/22 Test Equipment Mechanic Relationship Specialty Start Date End Date Maxim Lanza MD [address] [place] [address] PCP - General Family Medicine 07/15/23 Fred Gracia NP [address] [place] [address] Primary Care Provider Family Medicine 05/20/22 Test Equipment Mechanic Relationship Specialty Start Date End Date Maxim Lanza MD [address] [place] [address] PCP - General Family Medicine 07/15/23 Fred Gracia NP [address] [place] [address] Primary Care Provider Family Medicine 05/20/22 Test Equipment Mechanic Relationship Specialty Start Date End Date Maxim Lanza MD [address] [place] [address] PCP - General Family Medicine 07/15/23 Fred Gracia NP [address] [place] [address] Primary Care Provider Family Medicine 05/20/22 Test Equipment Mechanic Relationship Specialty Start Date End Date Maxim Lanza MD [address] [place] [address] PCP - General Family Medicine 07/15/23 Fred Gracia NP [address] [place] [address] Primary Care Provider [facility] Medicine 05/20/22 Test Equipment Mechanic Relationship Specialty Start Date End Date Maxim Lanza MD [address] [place] [address] PCP - General Family Medicine 07/15/23 Fred Gracia NP [address] [place] [address] Primary Care Provider [facility] 05/20/22 Test Equipment Mechanic Relationship Specialty Start Date End Date Maxim Lanza MD [address] [place] [address] PCP - General Family Medicine 07/15/23 Fred Gracia NP [address] [place] [address] Primary Care Provider [facility] 05/20/22 Test Equipment Mechanic Relationship Specialty Start Date End Date Maxim Lanza MD [address] [place] [address] PCP - General Family Medicine 07/15/23 Fred Gracia NP [address] [place] [address] Primary Care Provider [facility] Medicine 05/20/22 Test Equipment Mechanic Relationship Specialty Start Date End Date Maxim Lanza MD [address] [place] [address] PCP - General Family Medicine 07/15/23 Fred Gracia NP [address] [place] [address] Primary Care Provider Family Medicine 05/20/22 Test Equipment Mechanic Relationship Specialty Start Date End Date Maxim Lanza MD [address] [place] [address] PCP - General Family Medicine 07/15/23 Fred Gracia NP [address] [place] [address] Primary Care Provider Family Medicine 05/20/22 Test Equipment Mechanic Relationship Specialty Start Date End Date Maxim Lanza MD [address] [place] [address] PCP - General Family Medicine 07/15/23 Fred Gracia NP [address] [place] [address] Primary Care Provider Family Medicine 05/20/22 Test Equipment Mechanic Relationship Specialty Start Date End Date Maxim Lanza MD [address] [place] [address] PCP - General Family Medicine 07/15/23 Fred Gracia NP [address] [place] [address] Primary Care Provider Family Medicine 05/20/22 Test Equipment Mechanic Relationship Specialty Start Date End Date Valdez Acosta MD [address] [place] [address] PCP - General Internal Medicine 11/01/20 Sherrie Smith PA-C [address] [place] [address] [id number] Psychiatric Rn Internal Medicine 04/26/24 Elizabeth Lopez, CUSTOMER EXPERIENCE LEADER.INSPECTOR SHELLS [address] [place] [address] [phone] Psychiatric Rn Family Medicine 04/26/24 Test Equipment Mechanic Relationship Specialty Start Date End Date Maxim Lanza MD [address] [place] [address] PCP - General Family Medicine 07/15/23 Fred Gracia NP [address] [place] [address] Primary Care Provider Family Medicine 05/20/22 Test Equipment Mechanic Relationship Specialty Start Date End Date Maxim Lanza MD [address] [place] [address] PCP - General Family Medicine 07/15/23 Fred Gracia NP [address] [place] [address] Primary Care Provider Family Medicine 05/20/22 Test Equipment Mechanic Relationship Specialty Start Date End Date Maxim Lanza MD [address] [place] [address] PCP - General Family Medicine 07/15/23 Fred Gracia NP [address] [place] [address] Primary Care Provider Family Medicine 05/20/22 Test Equipment Mechanic Relationship Specialty Start Date End Date Maxim Lanza MD [address] [place] [address] PCP - General Family Medicine 07/15/23 Fred Gracia NP [address] [place] [address] Primary Care Provider Family Medicine 05/20/22 Test Equipment Mechanic Relationship Specialty Start Date End Date Maxim Lanza MD [address] [place] [address] PCP - General Family Medicine 07/15/23 Fred Gracia NP [address] [place] [address] Primary Care Provider Family Medicine 05/20/22 Test Equipment Mechanic Relationship Specialty Start Date End Date Maxim Lanza MD [address] [place] [address] PCP - General Family Medicine 07/15/23 Fred Gracia NP [address] [place] [address] Primary Care Provider Family Medicine 05/20/22 Test Equipment Mechanic Relationship Specialty Start Date End Date Maxim Lanza MD [address] [place] [address] PCP - General Family Medicine 07/15/23 rFed Gracia NP [address] [place] [address] Primary Care Provider Family Medicine 05/20/22 Test Equipment Mechanic Relationship Specialty Start Date End Date Maxim Lanza MD [address] [place] [address] PCP - General Family Medicine 07/15/23 Fred Gracia NP [address] [place] [address] Primary Care Provider Family Medicine 05/20/22 Test Equipment Mechanic Relationship Specialty Start Date End Date Maxim Lanza MD [address] [place] [address] PCP - General Family Medicine 07/15/23 Fred Gracia NP [address] [place] [address] Primary Care Provider Family Medicine 05/20/22 Test Equipment Mechanic Relationship Specialty Start Date End Date Maxim Lanza MD [address] [place] [address] PCP - General Family Medicine 07/15/23 Fred Gracia NP [address] [place] [address] Primary Care Provider Family Medicine 05/20/22 Test Equipment Mechanic Relationship Specialty Start Date End Date Maxim Lanza MD [address] [place] [address] PCP - General Family Medicine 07/15/23 Fred Gracia NP [address] [place] [address] Primary Care Provider [facility] Medicine 05/20/22 Team Status: Inactive Member Role Status Dates Tripp Gruber MD Attending Provider Active St art: August 22, 2024 End: August 22, 2024 Test Equipment Mechanic Relationship Specialty Start Date End Date Maxim Lanza MD [address] [place] [address] PCP - General Family Medicine 07/15/23 Fred Gracia NP [address] [place] [address] Primary Care Provider [facility] 05/20/22 Test Equipment Mechanic Relationship Specialty Start Date End Date Fred Gracia, CUSTOMER EXPERIENCE LEADER-INSPECTOR SHELLS [address] [place] [address] PCP - General Nurse Practitioner 08/28/24 Test Equipment Mechanic Relationship Specialty Start Date End Date Maxim Lanza MD [address] [place] [address] PCP - General Family Medicine 07/15/23 Fred Gracia NP [address] [place] [address] Primary Care Provider Family Medicine 05/20/22 Test Equipment Mechanic Relationship Specialty Start Date End Date Fred Gracia APRN-INSPECTOR SHELLS PCP - General Nurse Practitioner 08/28/24 Test Equipment Mechanic Relationship Specialty Start Date End Date Fred Gracia APRN-INSPECTOR SHELLS PCP - General Nurse Practitioner 08/28/24 Test Equipment Mechanic Relationship Specialty Start Date End Date Maxim Lanza MD [address] [place] [address] PCP - General Family Medicine 07/15/23 Fred Gracia NP [address] [place] [address] Primary Care Provider Family Medicine 05/20/22 Team Status: Inactive Member Role Status Dates Alonzo Holguin MD Attending Provider Active Sta rt: October 17, 2024 End: October 17, 2024 Test Equipment Mechanic Relationship Specialty Start Date End Date Maxim Lanza MD [address] [place] [address] PCP - General Family Medicine 07/15/23 Fred Gracia NP [address] [place] [address] Primary Care Provider Family Medicine 05/20/22 Test Equipment Mechanic Relationship Specialty Start Date End Date Fred Gracia APRN-INSPECTOR SHELLS PCP - General Nurse Practitioner 08/28/24 Test Equipment Mechanic Relationship Specialty Start Date End Date Fred Gracia [facility] PCP - General Nurse Practitioner 08/28/24 Test Equipment Mechanic Relationship Specialty Start Date End Date Fred Gracia [facility] PCP - General Nurse Practitioner 08/28/24 Test Equipment Mechanic Relationship Specialty Start Date End Date Fred Gracia [facility] PCP - General Nurse Practitioner 08/28/24 Test Equipment Mechanic Relationship Specialty Start Date End Date Fred Gracia [facility] PCP - General Nurse Practitioner 08/28/24 Test Equipment Mechanic Relationship Specialty Start Date End Date Fred Gracia [facility] PCP - General Nurse Practitioner 08/28/24 Test Equipment Mechanic Relationship Specialty Start Date End Date Fred Gracia [facility] PCP - General Nurse Practitioner 08/28/24 Team Status: Active Member Role Status Dates NON STAFF Primary Care Provider Active Team Status: Inactive Member Role Status Dates Storm Chapman MD Attending Provider Active Start : November 19, 2024 End: November 19, 2024 NON STAFF Primary Care Provider Active Start: November 19, 2024 End: November 19, 2024 Test Equipment Mechanic Relationship Specialty Start Date End Date Fred Gracia [facility] PCP - General Nurse Practitioner 08/28/24 Test Equipment Mechanic Relationship Specialty Start Date End Date Fred Gracia APRN-CNP PCP - General Nurse Practitioner 08/28/24 Test Equipment Mechanic Relationship Specialty Start Date End Date Fred [...] prosecute any alcohol or drug abuse patient.[facility] HospitalIn the event this information is protected by the Federal Confidentiality of Alcohol and Drug Abuse Patient Records regulations: The Federal rules restrict any use of the information to criminally investigate or prosecute any alcohol or drug abuse patient.[facility] HospitalIn the event this information is protected by the Federal Confidentiality of Alcohol and Drug Abuse Patient Records regulations: The Federal rules restrict any use of the information to criminally investigate or prosecute any alcohol or drug abuse patient.[facility] HospitalIn the event this information is protected by the Federal Confidentiality of Alcohol and Drug Abuse Patient Records regulations: The Federal rules restrict any use of the information to criminally investigate or prosecute any alcohol or drug abuse patient.[facility] HospitalIn the event this information is protected by the Federal Confidentiality of Alcohol and Drug Abuse Patient Records regulations: The Federal rules restrict any use of the information to criminally investigate or prosecute any alcohol or drug abuse patient.[facility] HospitalIn the event this information is protected by the Federal Confidentiality of Alcohol and Drug Abuse Patient Records regulations: The Federal rules restrict any use of the information to criminally investigate or prosecute any alcohol or drug abuse patient.[facility] HospitalIn the event this information is protected by the Federal Confidentiality of Alcohol and Drug Abuse Patient Records regulations: The Federal rules restrict any use of the information to criminally investigate or prosecute any alcohol or drug abuse patient.[facility] HospitalIn the event this information is protected by the Federal Confidentiality of Alcohol and Drug Abuse Patient Records regulations: The Federal rules restrict any use of the information to criminally investigate or prosecute any alcohol or drug abuse patient.[facility] HospitalIn the event this information is protected by the Federal Confidentiality of Alcohol and Drug Abuse Patient Records regulations: The Federal rules restrict any use of the information to criminally investigate or prosecute any alcohol or drug abuse patient.[facility] HospitalIn the event this information is protected by the Federal Confidentiality of Alcohol and Drug Abuse Patient Records regulations: The Federal rules restrict any use of the information to criminally investigate or prosecute any alcohol or drug abuse patient.[facility] HospitalIn the event this information is protected by the Federal Confidentiality of Alcohol and Drug Abuse Patient Records regulations: The Federal rules restrict any use of the information to criminally investigate or prosecute any alcohol or drug abuse patient.[facility] HospitalIn the event this information is protected by the Federal Confidentiality of Alcohol and Drug Abuse Patient Records regulations: The Federal rules restrict any use of the information to criminally investigate or prosecute any alcohol or drug abuse patient.[facility] HospitalIn the event this information is protected by the Federal Confidentiality of Alcohol and Drug Abuse Patient Records regulations: The Federal rules restrict any use of the information to criminally investigate or prosecute any alcohol or drug abuse patient.[facility] HospitalIn the event this information is protected by the Federal Confidentiality of Alcohol and Drug Abuse Patient Records regulations: The Federal rules restrict any use of the information to criminally investigate or prosecute any alcohol or drug abuse patient.[facility] HospitalIn the event this information is protected by the Federal Confidentiality of Alcohol and Drug Abuse Patient Records regulations: The Federal rules restrict any use of the information to criminally investigate or prosecute any alcohol or drug abuse patient.[facility] HospitalIn the event this information is protected by the Federal Confidentiality of Alcohol and Drug Abuse Patient Records regulations: The Federal rules restrict any use of the information to criminally investigate or prosecute any alcohol or drug abuse patient.[facility] HospitalIn the event this information is protected by the Federal Confidentiality of Alcohol and Drug Abuse Patient Records regulations: The Federal rules restrict any use of the information to criminally investigate or prosecute any alcohol or drug abuse patient.[facility] HospitalIn the event this information is protected by the Federal Confidentiality of Alcohol and Drug Abuse Patient Records regulations: The Federal rules restrict any use of the information to criminally investigate or prosecute any alcohol or drug abuse patient.[facility] HospitalIn the event this information is protected by the Federal Confidentiality of Alcohol and Drug Abuse Patient Records regulations: The Federal rules restrict any use of the information to criminally investigate or prosecute any alcohol or drug abuse patient.[facility] HospitalIn the event this information is protected by the Federal Confidentiality of Alcohol and Drug Abuse Patient Records regulations: The Federal rules restrict any use of the information to criminally investigate or prosecute any alcohol or drug abuse patient.[facility] HospitalIn the event this information is protected by the Federal Confidentiality of Alcohol and Drug Abuse Patient Records regulations: The Federal rules restrict any use of the information to criminally investigate or prosecute any alcohol or drug abuse patient.[facility] HospitalIn the event this information is protected by the Federal Confidentiality of Alcohol and Drug Abuse Patient Records regulations: The Federal rules restrict any use of the information to criminally investigate or prosecute any alcohol or drug abuse patient.[facility] HospitalIn the event this information is protected by the Federal Confidentiality of Alcohol and Drug Abuse Patient Records regulations: The Federal rules restrict any use of the information to criminally investigate or prosecute any alcohol or drug abuse patient.[facility] HospitalIn the event this information is protected by the Federal Confidentiality of Alcohol and Drug Abuse Patient Records regulations: The Federal rules restrict any use of the information to criminally investigate or prosecute any alcohol or drug abuse patient.[facility] HospitalIn the event this information is protected by the Federal Confidentiality of Alcohol and Drug Abuse Patient Records regulations: The Federal rules restrict any use of the information to criminally investigate or prosecute any alcohol or drug abuse patient.[facility] HospitalIn the event this information is protected by the Federal Confidentiality of Alcohol and Drug Abuse Patient Records regulations: The Federal rules restrict any use of the information to criminally investigate or prosecute any alcohol or drug abuse patient.[facility] HospitalIn the event this information is protected by the Federal Confidentiality of Alcohol and Drug Abuse Patient Records regulations: The Federal rules restrict any use of the information to criminally investigate or prosecute any alcohol or drug abuse patient.[facility] HospitalIn the event this information is protected by the Federal Confidentiality of Alcohol and Drug Abuse Patient Records regulations: The Federal rules restrict any use of the information to criminally investigate or prosecute any alcohol or drug abuse patient.[facility] HospitalIn the event this information is protected by the Federal Confidentiality of Alcohol and Drug Abuse Patient Records regulations: The Federal rules restrict any use of the information to criminally investigate or prosecute any alcohol or drug abuse patient.[facility] Reason for Visit (unrecogniz ed section and content) Reason Comments IV Medication Administration [facility] Specialty Diagnoses / Procedures Referred By Atilio t Referred To Contact Diagnoses Multiple sclerosis (HCC) G35 (ICD-10-CM) - Multiple sclerosis (HCC) Procedures INJECTION, OCRELIZUMAB, 1 MG J2350 - INJECTION, OCRELIZUMAB, 1 MG Sarthak Escobar MD, PhD [address] [place] [address] [facility] [address] [place] [id number] Referral ID Status Reason Start Date Expiration Date V isits Requested Visits Authorized [id number] Pending Review 12/06/2020 03/22/2023 4 4 Reason Comments Established Patient Follow-Up Reason Comments Infusion [facility] Referral ID Status Reason Start Date Expiration Date V isits Requested Visits Authorized [id number] Pending Review 12/06/2020 03/01/2022 2 2 Specialty Diagnoses / Procedures Referred By Contac t Referred To Contact MR IMAGING Diagnoses Multiple sclerosis, relapsing-remitting (HCC) Procedures MRI BRAIN WO/W IVCON MRI BRAIN BRAIN STEM W/O W/CONTRAST MATERIAL Jessica Clarke PA-C [address] [id number] Mr Imaging Referral ID Status Reason Start Date Expiration Date V isits Requested Visits Authorized [id number] Closed Auto-Generate d Referral 09/15/2021 11/25/2021 1 1 Reason Comments Established Patient Follow-Up Reason Comments [facility] Specialty Diagnoses / Procedures Referred By Contac t Referred To Contact [facility] Diagnoses Multiple sclerosis, relapsing-remitting (HCC) Procedures CONSULT TO HEAT TREATING FURNACE TENDER OCCUPATIONAL THERAPY EVAL HIGH COMPLEX 60 MINS Jessica Clarke PA-C [address] [place] [address] [facility] [place] [address] [place] [id number] Referral ID Status Reason Start Date Expiration Date V isits Requested Visits Authorized [id number] Closed Auto-Generate d Referral 09/15/2021 05/19/2022 1 1 Reason Comments Appointment Called pt LVM to see about setting up pt and psycology. Reason Comments Established Patient Follow-Up Reason Comments Patient Update Reason Comments URI Reason Comments Consult Cervical pain Specialty Diagnoses / Procedures Referred By Contac t Referred To Contact [facility] [place] Diagnoses Cervical stenosis of spine Procedures CONSULT TO [facility] OFFICE/OUTPATIENT NEW HIGH MDM 60 MINUTES Jessica Clarke PA-C [address] [place] [address] Referral ID Status Reason Start Date Expiration Date V isits Requested Visits Authorized [id number] Closed PCP Requested Referral 06/13/2023 06/12/2024 1 1 Reason Comments Orders Order for MRI needed for Brain and Cervical Reason Comments Patient Question Reason Comments Established Patient Reason Comments Orders Reason Comments Post-op PO Lt shoulder scope prob RCR TSCNCO 02/10/24 Specialty Diagnoses / Procedures Referred By Contac t Referred To Contact Physical Therapy Diagnoses S/P arthroscopy of left shoulder Procedures PA OFFICE/OUTPATIENT NEW HIGH MDM 60 MINUTES Eliazar Brooks, DO [address] [place] [address] Aria Kumar PT Referral ID Status Reason Start Date Expiration Date Visits Requested Visits Authorized [id number] Pending Review Specialty Services Required 02/25/2024 08/23/2024 [...] altered mental status type Xena Larios MD [address], [facility] [address] [place] [address] Phone: tel: fax: Referral ID Status Reason Start Date Expiration Date Visits Re quested Visits Authorized [id number] 1 1 Reason Onset Date Comments incision [...] Brain tumor (CMS-HCC) Double vision Reji Garcia, CUSTOMER EXPERIENCE LEADER-INSPECTOR [employer] [address] [place] [address] Phone: tel: fax: Alcon Khan MD [address] [place] [address] Phone: tel: fax: Referral ID Status Reason Start Date Expiration Date Visits Requested Visits Authorized [id number] Pending Review Specialty Services Required 11/10/2024 11/10/2025 [...] 0300, For Sodium level 160 mmol/L or nereovj=576 mL/hr; 155 to 159 mmol/L=125 mL/hr; 150-154 [...] dose 1444 (Given - Provider: Lorna Dias [employer]) barium sulfate (VARIBAR THIN HONEY) 40 %(w/v), [...] dose 1444 (Given - Provider: Lorna Dias [employer]IRCRA[employer]ALSMITH) bisacodyL (DULCOLAX) suppository 10 mg 10 mg, [...] BE BASED ON THE PRIMARY CLINICAL RECORDS. [facility]. provides no warranty or guarantee of the accuracy or completeness of information in this document.
[2024-11-28] MEDS: NOREPINEPHRINE BITARTRATE 4 MG in DEXTROSE 5 % IN WATER 250 ML 45.72 MG IV (06:16)
[2024-11-28 08:04] LABS: Hematocrit 25.7 % (36.0-48.0); Hemoglobin 8.1 g/dL (12.0-16.0); Immature Granulocytes Abs Auto 0.12 10^3/uL (0.00-0.03); Immature Granulocytes Pct Auto 0.5 % (0.0-0.5); Lymphocytes Absolute Auto 0.9 10^3/uL (1.2-3.8); Mean Corpuscular HGB Conc 31.5 g/dL (29.9-35.2); Mean Corpuscular Hemoglobin 27.5 pg (26.7-34.0); Mean Corpuscular Volume 87.1 fL (81.0-99.0); Platelet Count 186 10^3/uL (150-450); Red Blood Count 2.95 10^6/uL (4.20-5.40); White Blood Count 23.3 10^3/uL (4.0-11.0)
--- NOTE | 2024-11-28 08:20 | PM.HP ---
HPI H&P: HPI History of Present Illness Chief complaint: ALTERED MENTAL STATUS Narrative: Mrs. Yates is a 54-year-old female who was sent from the senior living with the complaint of a change in mental status. The patient was found to be hypotensive requiring aggressive IV fluid infusion and initiation of Levophed drip. The patient also has a chronic Ayala catheter. She was found to have abnormal urinalysis suggestive of UTI. Patient had a CAT scan of the abdomen and pelvis 2 days prior to admission which showed bilateral hydronephrosis and bladder wall thickening suggestive of apparent nephritis. No obstructive uropathy. Patient was found to have acute kidney failure. No seizure or convulsion. No chest pain. Patient reported having abdominal pain. No hematemesis or melena. Opioid HPI Opioid Management Most Recent Pain and Opioid Data: Last Pain Scale 7 11/24/24, 18:12 Last Pain Intensity 0 10/19/24, 08:26 Last Pain Assessment Today, 06:00 Last ORT Total Score 0 10/17/24, 07:39 Last ORT Risk Category Low Risk 10/17/24, 07:39 Review of Systems ROS Status of ROS 10 or more systems reviewed and unremarkable except as noted in history and below [facility] Medical History (Updated 11/28/24 @ 08:22 by Elizabeth Oneill MD) Elevated troponin ?R79.89 - Other specified abnormal findings of blood chemistry (ICD-10) Acute diastolic heart failure ?I50.31 - Acute diastolic (congestive) heart failure (ICD-10) Cardiac murmur ?R01.1 - Cardiac murmur, unspecified (ICD-10) Iron deficiency anemia ?D50.9 - Iron deficiency anemia, unspecified (ICD-10) Respiratory acidosis ?E87.29 - Other acidosis (ICD-10) Hypertensive urgency ?I16.0 - Hypertensive urgency (ICD-10) Severe protein-calorie malnutrition ?E43 - Unspecified severe protein-calorie malnutrition (ICD-10) Morbid obesity ?E66.01 - Morbid (severe) obesity due to excess calories (ICD-10) Acute hypoxic respiratory failure ?J96.01 - Acute respiratory failure with hypoxia (ICD-10) Acute combined systolic (congestive) and diastolic (congestive) heart failure ?I50.41 - Acute combined systolic (congestive) and diastolic (congestive) heart failure (ICD-10) Edema, peripheral ?R60.0 - Localized edema (ICD-10) Chronic obstructive pulmonary disease with (acute) exacerbation ?J44.1 - Chronic obstructive pulmonary disease with (acute) exacerbation (ICD-10) Congestive heart failure ?I50.9 - Heart failure, unspecified (ICD-10) Respiratory failure ?J96.90 - Respiratory failure, unspecified, unspecified whether with hypoxia or hypercapnia (ICD-10) Brain mass ?G93.89 - Other specified disorders of brain (ICD-10) Urinary tract infection ?N39.0 - Urinary tract infection, site not specified (ICD-10) Bladder dysfunction ?N31.9 - Neuromuscular dysfunction of bladder, unspecified (ICD-10) Weakness ?R53.1 - Weakness (ICD-10) Dysphagia ?R13.10 - Dysphagia, unspecified (ICD-10) Rhabdomyolysis ?M62.82 - Rhabdomyolysis (ICD-10) Muscle weakness ?M62.81 - Muscle weakness (generalized) (ICD-10) Depression ?F32.A - Depression, unspecified (ICD-10) Sleep apnea ?G47.30 - Sleep apnea, unspecified (ICD-10) Insomnia ?G47.00 - Insomnia, unspecified (ICD-10) Anxiety ?F41.9 - Anxiety disorder, unspecified (ICD-10) Panic disorder ?F41.0 - Panic disorder [episodic paroxysmal anxiety] (ICD-10) Hyperlipemia ?E78.5 - Hyperlipidemia, unspecified (ICD-10) Hypertension ?I10 - Essential (primary) hypertension (ICD-10) Nutritional deficiency ?E63.9 - Nutritional deficiency, unspecified (ICD-10) Bipolar 1 disorder ?F31.9 - Bipolar disorder, unspecified (ICD-10) Pressure injury of sacral region, stage 2 ?L89.152 - Pressure ulcer of sacral region, stage 2 (ICD-10) Obesity ?E66.9 - Obesity, unspecified (ICD-10) Multiple sclerosis ?G35 - Multiple sclerosis (ICD-10) Surgical History History of craniotomy ?Z98.890 - Other specified postprocedural states (ICD-10) Social History Highest level of school completed/degree received: don't know Little interest or pleasure in doing things: not at all Feeling down, depressed, or hopeless: not at all Meds Home Medications and Allergies Home Medications ?Medication ?Instructions ?Recorded ?Confirmed ?Type acetaminophen 325 mg tablet 650 mg PO Q6H PRN pain 10/17/24 11/28/24 History (Tylenol) albuterol sulfate 2.5 mg/3 mL 2.5 mg inhalation Q4H PRN 10/17/24 11/28/24 History (0.083 %) solution for nebulization shortness of breath or wheezing levetiracetam 500 mg tablet 500 mg PO Q12H 10/17/24 11/24/24 History mirtazapine 15 mg disintegrating 15 mg PO HS 10/17/24 11/28/24 History tablet sennosides 8.6 mg-docusate sodium 2 tab-cap PO .QHS 10/17/24 11/28/24 History 50 mg tablet (Senna Plus) trazodone 50 mg tablet 25 mg PO HS 10/17/24 11/28/24 History amino acids-protein hydrolysate 15 1 ea PO BID #2,880 mL 10/21/24 11/24/24 Rx gram-100 kcal/30 mL oral liquid pkt (Pro-Stat Sugar Free) metoprolol succinate 100 mg 100 mg PO QD #30 tabs 10/21/24 11/28/24 Rx tablet,extended release 24 hr zinc oxide 40 % topical ointment 1 applic topical QID PRN Skin 10/21/24 11/24/24 Rx (Diaper Rash) Irritation #397 grams bumetanide 1 mg tablet 2 mg PO DAILY 11/24/24 11/28/24 History docusate sodium 100 mg capsule 100 mg PO BID 11/24/24 11/24/24 History (Colace) ondansetron 8 mg disintegrating 8 mg translingual Q8H PRN nausea 11/24/24 11/28/24 History tablet and vomiting potassium chloride 10 mEq 10 meq PO DAILY 11/24/24 11/28/24 History capsule,extended release buspirone 7.5 mg tablet 7.5 mg PO BID 11/28/24 11/28/24 History docusate sodium 100 mg capsule 100 mg PO BID 11/28/24 11/28/24 History (Colace) levetiracetam 500 mg tablet 250 mg PO BID 11/28/24 11/28/24 History melatonin 5 mg tablet 5 mg PO DAILY 11/28/24 11/28/24 History Allergies Allergy/AdvReac Type Severity Reaction Status Date / Time No Known Drug Allergies Allergy Verified 11/24/24 18:12 Exam Narrative Exam Narrative: Patient is lying in bed. Awake but not alert. Morbidly obese. Able to answer yes/no questions. Unable to engage in conversation. Able to follow simple commands such as moving her upper and lower extremities. Chest is clear, heart is regular but faint. Abdomen is diffusely tender mostly in the bilateral flank area. Patient has a chronic Ayala catheter. She has trace pitting edema in both legs. Patient is very weak. Unable to lift up her legs against gravity but able to move them sideways. Unable to sit up or stand Constitutional Vital Signs, click to edit/add: Last Vital Signs Temp 99.1 F 11/28/24 06:15 Pulse 89 11/28/24 06:15 Resp 24 H 11/28/24 06:15 BP 93/62 11/28/24 06:01 Pulse Ox 92 L 11/28/24 05:23 O2 Del Method Nasal Cannula 11/28/24 05:23 O2 Flow Rate 2 11/28/24 05:23 Results Labs Labs: Short CBC 11/27/24 11/28/24 Range/Units 20:15 07:54 WBC 19.9 H 23.3 H (4.0-11.0) 10^3/uL Hgb 7.6 L 8.1 L (12.0-16.0) g/dL Hct 24.6 L 25.7 L (36.0-48.0) % Plt Count 177 186 (150-450) 10^3/uL BMP 11/27/24 20:15 Sodium 137 Potassium 3.8 Chloride 101 Carbon Dioxide 30.3 BUN 37.0 H Creatinine 3.05 H Glucose 137 H Calcium 7.8 L Liver Function 11/27/24 Range/Units 20:15 Total Bilirubin 0.5 (0.2-1.0) mg/dL AST 16 (15-37) U/L ALT <6 L (14-59) U/L Alkaline Phosphatase 72 (46-116) U/L Albumin 1.6 L (3.4-5.0) g/dL Urine 11/27/24 Range/Units 20:36 Urine Color Dk yellow (YELLOW) Urine Clarity Cloudy A (CLEAR) Urine pH 6.5 (5.0-9.0) Ur Specific [place] 1.020 (1.005-1.025) Urine Protein >=300 A (NEG/TRACE) mg/dL Urine Glucose (UA) Negative (NEGATIVE) mg/dL Assessment and Plan Assessment and Plan (1) Septic shock: (2) Multiple sclerosis: (3) Chronic indwelling Ayala catheter: (4) Septic encephalopathy: (5) Catheter-associated urinary tract infection: (6) BRANDON (acute kidney injury): (7) Anemia: Plan Severe sepsis with septic shock present on admission. Likely caused by CAUTI but is also present on admission. Nurse inspected her skin thoroughly without any evidence of skin ulceration or infection. I had accepted to admit patient to the stepdown unit. Aggressive IV fluid infusion had completed in the emergency room department followed up by ongoing IV fluid infusion. Her lactic acid is normal. White count is elevated Patient was given ceftriaxone 2 g in the emergency room department. I will change to Zosyn to cover possibility of Pseudomonas. Urine and blood cultures are in process. Continue Levophed. Titrate to keep systolic above 100 BRANDON. Likely caused by sepsis. Patient may have ATN already. Recent CAT scan of the abdomen completed 2 days prior to admission showed bilateral hydronephrosis secondary to pyelonephritis and bladder wall thickening. No obstructing stone Monitor kidney function No indication for dialysis at this time. Normal potassium. No metabolic acidosis Anemia. Likely chronic. Rectal exam completed in the emergency room department as per emergency room provider and reported to be negative for blood. Requested iron study, ferritin Monitor hemoglobin Altered mental status, diminished responsiveness and weakness I suspect the patient has septic metabolic encephalopathy secondary to above History of multiple sclerosis and brain lesion status postresection CT head showed evidence of a prior stroke and brain resection. The questionable area of edema Continue to monitor her mental status and hoping that will improve over the next 48 to 96 hours Consideration to proceed with the MRI of the brain. Functional impairment and disability Could be related to metabolic and septic encephalopathy Unknown baseline but reported history of MS and brain tumor resection. Will need to verify her baseline functional status prior to this acute illness. Chronic medical conditions not listed above, incidental findings seen on labs and imaging. These would need to be addressed. Could be addressed when time and condition are appropriate. Could be addressed in the outpatient setting by PCP collaboration with other needed outpatient providers. Status at the nursing facility DNR CCA. Patient status is dynamic and evolutionary therefore the aforementioned assessment and plan may or may not be complete or conclusive. The patient would likely require to have additional workup, desiccation, therapeutic dilation and consultation but will be determined based on the clinical progression and follow-up as result Patient continues to be in a critical state of condition. I spent about 1 hour plus in the critical care evaluation management of this patient Urinary Catheter Management Urinary Catheter Management Urethral: Cath placed during this visit: no
[2024-11-28] MEDS: 0.9 % SODIUM CHLORIDE 500 ML IV (08:32)
[2024-11-28] MEDS: ALBUMIN HUMAN 25 GM/100 ML PREMIX IV ×2 (08:32→21:08)
--- NOTE | 2024-11-28 08:32 | P.EN_ITS ---
Event Note Event Note: I called her son [place]. I gave him information about her disease, prognosis, expectation and trajectory. I informed him that his mom is in a critical situation. Son stated that his mom has been essentially bed and wheelchair-bound for a while due to her MS. Her functional status had declined after brain surgery. Son stated that she had brain cancer resection at [facility]. He was told that the patient has aggressive brain cancer. He is not sure about any future oncological care.
[2024-11-28 08:33] LABS: Lactate/Lactic Acid 0.9 mmol/L (0.4-2.0)
[2024-11-28] MEDS: PIPERACILLIN SODIUM/TAZOBACTAM 3.375 GM in 0.9 % SODIUM CHLORIDE 50 ML IV ×2 (08:33→21:09)
[2024-11-28 08:39] LABS: Alanine Aminotransferase 7 U/L (14-59); Albumin Globulin Ratio 0.4; Albumin Level 1.7 g/dL (3.4-5.0); Alkaline Phosphatase 74 U/L (46-116); Anion Gap 11.8; Aspartate Amino Transferase 16 U/L (15-37); Blood Urea Nitrogen 38.0 mg/dL (7.0-18.0); Calcium 8.3 mg/dL (8.5-10.1); Carbon Dioxide 28.2 mmol/L (21.0-32.0); Chloride 102 mmol/L (98-107); Estimated GFR (African America 23 (>=60 mL/min/1.73m^2); Estimated GFR (Non-African Ame 19 (>=60 mL/min/1.73m^2); Globulin 3.8 g/dL; Glucose 126 mg/dL (74-106); Potassium 4.0 mmol/L (3.5-5.1); Sodium 138 mmol/L (136-145); Total Protein 5.5 g/dL (6.4-8.2)
[2024-11-28 08:40] LABS: Iron 7.0 ug/dL (50.0-170.0); Percent Iron Saturation 3.3 %; Total Iron Binding Capacity 213.0 ug/dL (250.0-450.0)
[2024-11-28] MEDS: HEPARIN SODIUM (PORCINE) 5,000 UNIT/ML VIAL 5000 UNIT SUBQ ×2 (09:29→21:10)
[2024-11-28 09:52] LABS: Ferritin 338.0 ng/mL (8.0-252.0)
[2024-11-28] MEDS: NOREPINEPHRINE BITARTRATE/D5W 4 MG/250 ML PREMIX 30 MG IV (11:13)
[2024-11-28] MEDS: MIDODRINE HCL 5 MG TABLET PO ×2 (11:13→16:06)
[2024-11-28] MEDS: ACETAMINOPHEN 325 MG TABLET 650 MG PO ×2 (17:31→21:15)
[2024-11-28] MEDS: GENTAMICIN SULFATE 80 MG in 0.9 % SODIUM CHLORIDE 100 ML 204 MG IV (21:09)
[2024-11-28] MEDS: MIDODRINE HCL 5 MG TABLET 10 MG PO (21:10)
[2024-11-28] MEDS: LEVETIRACETAM 250 MG TABLET 750 MG PO (21:11)
[2024-11-28] MEDS: HYDROMORPHONE HCL 0.5 MG/0.5 ML SYRINGE IV (23:00)
[2024-11-29] VITALS (124 sets, daily range): BP systolic 81–146; BP diastolic 43–92; PULSE 80–132; RESP 14; TEMP 37.3–39.1; O2SAT 83–99
[2024-11-29 06:28] LABS: Hematocrit 25.9 % (36.0-48.0); Hemoglobin 7.9 g/dL (12.0-16.0); Mean Corpuscular HGB Conc 30.5 g/dL (29.9-35.2); Mean Corpuscular Hemoglobin 27.4 pg (26.7-34.0); Mean Corpuscular Volume 89.9 fL (81.0-99.0); Platelet Count 204 10^3/uL (150-450); Red Blood Count 2.88 10^6/uL (4.20-5.40); White Blood Count 21.5 10^3/uL (4.0-11.0)
[2024-11-29 06:45] LABS: Alanine Aminotransferase 11 U/L (14-59); Albumin Globulin Ratio 0.6; Albumin Level 2.1 g/dL (3.4-5.0); Alkaline Phosphatase 94 U/L (46-116); Anion Gap 14.3; Aspartate Amino Transferase 28 U/L (15-37); Blood Urea Nitrogen 31.0 mg/dL (7.0-18.0); Calcium 8.1 mg/dL (8.5-10.1); Carbon Dioxide 28.2 mmol/L (21.0-32.0); Chloride 103 mmol/L (98-107); Estimated GFR (African America 26 (>=60 mL/min/1.73m^2); Estimated GFR (Non-African Ame 22 (>=60 mL/min/1.73m^2); Globulin 3.5 g/dL; Glucose 118 mg/dL (74-106); Potassium 4.5 mmol/L (3.5-5.1); Sodium 141 mmol/L (136-145); Total Protein 5.6 g/dL (6.4-8.2)
[2024-11-29] MEDS: ACETAMINOPHEN 650 MG RECTAL SUPPOSITORY PR ×3 (08:34→22:22)
[2024-11-29] MEDS: PIPERACILLIN SODIUM/TAZOBACTAM 3.375 GM in 0.9 % SODIUM CHLORIDE 50 ML IV (08:40)
[2024-11-29] MEDS: HEPARIN SODIUM (PORCINE) 5,000 UNIT/ML VIAL 5000 UNIT SUBQ ×2 (08:40→21:55)
--- NOTE | 2024-11-29 08:51 | CT_ITS ---
The [address] [address] Patient Name: NITHYA VASQUEZ MRN: [id number] date: 1970 Sex: F Assigned Patient Location: [place] Current Patient Location: [place] Accession/Order Number: [id number] Exam Date: 11/29/2024 10:20 Report Date: 11/29/2024 10:24 At the request of: MERA AGUILERA MD Procedure: CT head/brain wo con CT head/brain wo con 11/29/2024 9:54 AM SIGNS AND SYMPTOMS: ^Worsening altered mental status and lethargy. TECHNIQUE:Multi-detector CT axial slices of the brain were obtained without IV contrast. CT was performed with one or more of the following dose reduction techniques: Automated exposure control, adjustment of the mA and/or kV according to patient size, or use of iterative reconstruction technique. COMPARISON: 11/27/2024. FINDINGS: There is no shift of the midline structures, acute intracranial bleeding, mass effects, or evidence of acute ischemia. There is gliosis and encephalomalacia within the right temporal lobe consistent with a remote infarct. This is also noted in the lateral aspect of the left frontal cortex and in the right perirolandic region. The ventricular system is normal in size. The brainstem and the cerebellum are unremarkable. The visualized intraorbital contents, the visualized paranasal sinuses, and the infratemporal soft tissues show no acute abnormality. The osseous structures in the skull base and the calvarium show no acute abnormality. There is evidence of previous right temporal craniotomy. CT/CT head/brain wo con IMPRESSION: Remote infarcts are redemonstrated similar to the prior exam with evidence of previous right temporal craniotomy. No acute intracranial pathology. Impression dictated by: Frankie Fan M.D. 11/29/2024 10:24 AM Dictation Location: [place] [address] Electronically authenticated by: [id number] Date: 11/29/2024 10:24
[2024-11-29 09:09] LABS: Allen Test POSITIVE (POSITIVE); HCO3 ABG 27.3 mmol/L (22.0-26.0); Liters per Minute 4; O2 Mode NC; Oxygen Saturation ABG 95.3 %; PO2 ABG 76.3 mmHg (80.0-100.0); Puncture Site R RAD
[2024-11-29 09:16] LABS: ABG PCO2 65.4 mmHg (35.0-45.0)
[2024-11-29] MEDS: NOREPINEPHRINE BITARTRATE/D5W 4 MG/250 ML PREMIX 30 MG IV ×2 (10:15→16:38)
[2024-11-29] MEDS: NALOXONE HCL 0.4 MG/ML VIAL IV ×2 (10:22→10:48)
[2024-11-29] MEDS: DEXAMETHASONE SOD PHOS 10 MG/ML VIAL IV (10:31)
--- NOTE | 2024-11-29 11:36 | P.PN_ITS ---
Progress Note: Subjective Subjective Interval history: Patient is more lethargic today than yesterday. Charted respiration. Patient had received a dose of Dilaudid 0.5 mg yesterday at 2300 for abdominal discomfort. Patient continues to have fever. She had received dose of gentamicin intravenously yesterday. She continues to be on Zosyn. Ayala catheter was changed. Exam Narrative Exam Narrative: Patient is more lethargic compared to yesterday. Barely able to open her eyes. Shallow respiration. Tachypnea. Respiratory is about 25. Unable to follow commands. Unable to gauge. Heart is regular, slightly tachycardic. Abdomen soft. Constitutional Vital Signs, click to edit/add: Last Vital Signs Temp 100.2 F 11/29/24 09:53 Pulse 96 H 11/29/24 11:30 Resp 31 H 11/29/24 11:30 BP 102/62 11/29/24 11:30 Pulse Ox 99 11/29/24 11:30 O2 Del Method Nasal Cannula 11/29/24 08:49 O2 Flow Rate 4 11/29/24 08:49 FiO2 40 11/29/24 09:58 Progress Note: Objective Labs Labs: Short CBC 11/29/24 Range/Units 05:55 WBC 21.5 H (4.0-11.0) 10^3/uL Hgb 7.9 L (12.0-16.0) g/dL Hct 25.9 L (36.0-48.0) % Plt Count 204 (150-450) 10^3/uL BMP 11/29/24 05:55 Sodium 141 Potassium 4.5 Chloride 103 Carbon Dioxide 28.2 BUN 31.0 H Creatinine 2.33 H Glucose 118 H Calcium 8.1 L Liver Function 11/29/24 Range/Units 05:55 Total Bilirubin 0.8 (0.2-1.0) mg/dL AST 28 (15-37) U/L ALT 11 L (14-59) U/L Alkaline Phosphatase 94 (46-116) U/L Albumin 2.1 L (3.4-5.0) g/dL Progress Note: A&P Assessment and Plan (1) Septic shock: (2) Multiple sclerosis: (3) Chronic indwelling Ayala catheter: (4) Septic encephalopathy: (5) Catheter-associated urinary tract infection: (6) BRANDON (acute kidney injury): (7) Anemia: Plan Severe sepsis with septic shock present on admission. Likely caused by CAUTI but is also present on admission. Nurse inspected her skin thoroughly without any evidence of skin ulceration or infection. I had accepted to admit patient to the stepdown unit. Aggressive IV fluid infusion had completed in the emergency room department followed up by ongoing IV fluid infusion. Her lactic acid is normal. White count is elevated Patient was given ceftriaxone 2 g in the emergency room department. I will change to Zosyn to cover possibility of Pseudomonas. Ayala catheter was changed. Patient had received a dose of gentamicin on 11/28. Due to a possibility of ESBL I will change the Zosyn to Primaxin. Urine and blood cultures are in process. Patient was off her Levophed drip for 12 hours. This morning her blood pressure is drifting down. Resume Levophed. Continue Levophed. Titrate to keep systolic above 100 BRANDON. Likely caused by sepsis. Patient may have ATN already. Recent CAT scan of the abdomen completed 2 days prior to admission showed bilateral hydronephrosis secondary to pyelonephritis and bladder wall thickening. No obstructing stone Improvement of kidney function over the last 48 hours. No indication for dialysis at this time. Normal potassium. No metabolic acidosis Anemia. Likely chronic. Rectal exam completed in the emergency room department as per emergency room provider and reported to be negative for blood. Requested iron study, ferritin Monitor hemoglobin Altered mental status, diminished responsiveness and weakness I suspect the patient has septic metabolic encephalopathy secondary to above. Improvement of kidney function. Worsening encephalopathy today Patient was given Narcan 0.4 mg IV doses x 2. No significant improvement. Less likely to be caused by opiates due to lack of improvement with Narcan. CT head stat was ordered. Does not show any acute intracranial process Blood gas showed hypercapnia with respiratory acidosis. Patient was placed on BiPAP. Repeat blood gas in 2 hours. Functional impairment and disability Could be related to metabolic and septic encephalopathy Unknown baseline but reported history of MS and brain tumor resection. Will need to verify her baseline functional status prior to this acute illness. History of brain cancer s/p resection. Completed in September according to her son in [place]. Chronic medical conditions not listed above, incidental findings seen on labs and imaging. These would need to be addressed. Could be addressed when time and condition are appropriate. Could be addressed in the outpatient setting by PCP collaboration with other needed outpatient providers. Status at the nursing facility DNR CCA. Patient status is dynamic and evolutionary therefore the aforementioned assessment and plan may or may not be complete or conclusive. The patient would likely require to have additional workup, desiccation, therapeutic dilation and consultation but will be determined based on the clinical progression and follow-up as result Patient continues to be in a critical state of condition. I spent about 1 hour plus in the critical care evaluation management of this patient Overall patient has poor prognosis Continue excellent nursing care provided by nursing team here at [facility] Urinary Catheter Management Urinary Catheter Management Urethral: Cath placed during this visit: yes, but has since been removed by the nurse Insertion date: 11/28/24 Insertion time: 10:10 Removal date: 11/28/24 Removal time: 10:00
[2024-11-29] MEDS: IMIPENEM/CILASTATIN SODIUM 500 MG in 0.9 % SODIUM CHLORIDE 100 ML 100 MG IV ×2 (11:51→23:43)
[2024-11-29 13:04] LABS: Allen Test POSITIVE (POSITIVE); BIPAP Pressure 16/8; HCO3 ABG 26.1 mmol/L (22.0-26.0); O2 Mode BI PAP; Oxygen Saturation ABG 99.0 %; PO2 ABG 101.0 mmHg (80.0-100.0); Puncture Site R RAD; Rate 14
[2024-11-29 13:05] LABS: ABG PCO2 50.6 mmHg (35.0-45.0)
--- NOTE | 2024-11-29 13:26 | PM.PN ---
Progress Note: Subjective Subjective Interval history: Patient is more lethargic today than yesterday. Charted respiration. Patient had received a dose of Dilaudid 0.5 mg yesterday at 2300 for abdominal discomfort. Patient continues to have fever. She had received dose of gentamicin intravenously yesterday. She continues to be on Zosyn. Ayala catheter was changed. Exam Constitutional Vital Signs, click to edit/add: Last Vital Signs Temp 101.3 F H 11/29/24 11:44 Pulse 91 H 11/29/24 13:00 Resp 32 H 11/29/24 13:00 BP 113/73 11/29/24 13:00 Pulse Ox 97 11/29/24 12:45 O2 Del Method BIPAP 11/29/24 11:44 O2 Flow Rate 4 11/29/24 08:49 FiO2 40 11/29/24 12:43 Progress Note: Objective Labs Labs: Short CBC 11/29/24 Range/Units 05:55 WBC 21.5 H (4.0-11.0) 10^3/uL Hgb 7.9 L (12.0-16.0) g/dL Hct 25.9 L (36.0-48.0) % Plt Count 204 (150-450) 10^3/uL BMP 11/29/24 05:55 Sodium 141 Potassium 4.5 Chloride 103 Carbon Dioxide 28.2 BUN 31.0 H Creatinine 2.33 H Glucose 118 H Calcium 8.1 L Liver Function 11/29/24 Range/Units 05:55 Total Bilirubin 0.8 (0.2-1.0) mg/dL AST 28 (15-37) U/L ALT 11 L (14-59) U/L Alkaline Phosphatase 94 (46-116) U/L Albumin 2.1 L (3.4-5.0) g/dL Progress Note: A&P Assessment and Plan (1) Septic shock: (2) Multiple sclerosis: (3) Chronic indwelling Ayala catheter: (4) Septic encephalopathy: (5) Catheter-associated urinary tract infection: (6) BRANDON (acute kidney injury): (7) Anemia: Plan Please refer to my Am note for details. I went back 3-4 times throughout the day to check up on her. pt continues to be lethargic. barely able to open her eyes. I ordered repeat ABG which showed improvement of rher PCO2 and PH. No improvement after Narcan makes it less likely that opiates is contributing to worsening MS. Still spiking fever on off. Cx are pending. Likley septic , metabolic, uremic encephalopthy but er kidney function is improving. Pt is not acidotic. WBC is trending down. CT head non acute Other possible etiologies are Keppra toxicity side effect, will order level, wont be back in few days. Possible ischemic stroke not seen on CT, pt would need MR Possible CORD MAKER infection, ? less likely. Would need an LP Possible seizure with post ictal, would need EEG, not available here. Ordered prolactin. May need to transfer [place] [facility] May need EEG, MRI head. Pt is DNRCCA Will call and discuss with her family. Spent additional hr in [facility] mgt Urinary Catheter Management Urinary Catheter Management Urethral: Cath placed during this visit: yes, but has since been removed by the nurse Insertion date: 11/28/24 Insertion time: 10:10 Removal date: 11/28/24 Removal time: 10:00
--- NOTE | 2024-11-29 13:34 | P.EN_ITS ---
Event Note Event Note: I called her son Ariadne to give him update and discuss potential transfer to [facility]. He did not answer the phone. I left a message for him. I dont have pt's dtr contact info. I will try to connect with him later before I transfer her out.
--- NOTE | 2024-11-29 16:03 | PM.EN ---
Event Note Event Note: I called her son Ariadne again at 3:54 Pm to give him update and get his permission to transfer pt to [facility]. He did not answer the phone. I left a second message for him.
[2024-11-29] MEDS: FLUCONAZOLE IN NACL,ISO-OSM 200 MG/100 ML PREMIX 100 MG IV (16:48)
--- NOTE | 2024-11-29 18:11 | PM.EN ---
Event Note Event Note: I called her nurse to check up on pt Nurse stated that pt looks better. Her temp is down. Her BP improved. Levo is down to 8 mcg from 10. Pt is becoming more alert. Able to track. Her RR is down so is her HR. Nurse was able to get me her dtr phone number form [facility], since her son is not answering phone and her dtr is actual POA according to Ariadne when I talked to him 2 days ago.. I called her dtr vj. She did not answer the phone. I could not leave a message as mail box is full and cannot accpet additional messages. Since pt is doing well clinically and having no permission to transfer out from [facility], we will watch over night and see how she is doing in [place].
--- NOTE | 2024-11-29 22:51 | PC.NURSE ---
pt is requesting to take BIPAP off at this time, pt is educated about reasons why BIPAP was placed. Pt is still requesting to have her NC placed back on. This nurse placed pt on 4L of oxygen.
[2024-11-30] VITALS (77 sets, daily range): BP systolic 98–137; BP diastolic 48–91; PULSE 80–136; RESP 14; TEMP 36.6–37.4; O2SAT 80–100
[2024-11-30 05:58] LABS: Hemoglobin 7.0 g/dL (12.0-16.0); Mean Corpuscular HGB Conc 30.7 g/dL (29.9-35.2); Mean Corpuscular Hemoglobin 26.8 pg (26.7-34.0); Mean Corpuscular Volume 87.4 fL (81.0-99.0); Platelet Count 164 10^3/uL (150-450); Red Blood Count 2.61 10^6/uL (4.20-5.40); White Blood Count 4.9 10^3/uL (4.0-11.0)
[2024-11-30 06:17] LABS: Alanine Aminotransferase 13 U/L (14-59); Albumin Globulin Ratio 0.5; Albumin Level 1.8 g/dL (3.4-5.0); Alkaline Phosphatase 79 U/L (46-116); Anion Gap 13.6; Aspartate Amino Transferase 20 U/L (15-37); Blood Urea Nitrogen 33.0 mg/dL (7.0-18.0); Calcium 8.3 mg/dL (8.5-10.1); Carbon Dioxide 29.5 mmol/L (21.0-32.0); Chloride 106 mmol/L (98-107); Estimated GFR (African America 32 (>=60 mL/min/1.73m^2); Estimated GFR (Non-African Ame 26 (>=60 mL/min/1.73m^2); Globulin 3.6 g/dL; Glucose 123 mg/dL (74-106); Potassium 4.1 mmol/L (3.5-5.1); Sodium 145 mmol/L (136-145); Total Protein 5.4 g/dL (6.4-8.2)
[2024-11-30 06:53] LABS: Hematocrit 22.8 % (36.0-48.0)
[2024-11-30] MEDS: HEPARIN SODIUM (PORCINE) 5,000 UNIT/ML VIAL 5000 UNIT SUBQ ×2 (08:30→21:15)
[2024-11-30] MEDS: MIDODRINE HCL 5 MG TABLET PO ×3 (08:30→16:40)
--- NOTE | 2024-11-30 08:39 | SWNOTE1 ---
SW received a message from Renuka at [facility] and pt is from there senior living.
--- NOTE | 2024-11-30 08:50 | CM.NOTE ---
Rounds made with Dr. Oneill, discussed with pt reason for admission and plan of care. 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
--- NOTE | 2024-11-30 09:36 | P.PN_ITS ---
Progress Note: Subjective Subjective Interval history: Patient has made significant improvement of her mental status since yesterday. This morning, the patient is awake, alert, coherent. Able to answer questions and engage in simple conversation. Able to follow commands. Exam Narrative Exam Narrative: Much more awake and alert compared to yesterday. Able to hold conversation. Able to answer questions. Able to move her extremities. Symmetrical motor and tone. Able to lift upper legs against gravity but not against resistance. Chest is clear, heart is regular but tachycardic. Abdomen soft. Constitutional Vital Signs, click to edit/add: Last Vital Signs Temp 98.7 F 11/30/24 07:44 Pulse 129 H 11/30/24 09:15 Resp 27 H 11/30/24 09:15 BP 126/77 11/30/24 09:15 Pulse Ox 93 L 11/30/24 09:25 O2 Del Method Nasal Cannula 11/30/24 09:25 O2 Flow Rate 2 11/30/24 09:25 FiO2 4 11/30/24 06:00 Progress Note: Objective Labs Labs: Short CBC 11/30/24 Range/Units 05:51 WBC 4.9 (4.0-11.0) 10^3/uL Hgb 7.0 L (12.0-16.0) g/dL Hct 22.8 L* (36.0-48.0) % Plt Count 164 (150-450) 10^3/uL BMP 11/30/24 05:51 Sodium 145 Potassium 4.1 Chloride 106 Carbon Dioxide 29.5 BUN 33.0 H Creatinine 1.98 H Glucose 123 H Calcium 8.3 L Liver Function 11/30/24 Range/Units 05:51 Total Bilirubin 0.3 (0.2-1.0) mg/dL AST 20 (15-37) U/L ALT 13 L (14-59) U/L Alkaline Phosphatase 79 (46-116) U/L Albumin 1.8 L (3.4-5.0) g/dL Progress Note: A&P Assessment and Plan (1) Septic shock: (2) Multiple sclerosis: (3) Chronic indwelling Ayala catheter: (4) Septic encephalopathy: (5) Catheter-associated urinary tract infection: (6) BRANDON (acute kidney injury): (7) Anemia: Plan Severe sepsis with septic shock present on admission. Likely caused by CAUTI but is also present on admission. Her white count is down from 25,000 to 4.9 thousand. CRP still elevated. May lag behind Continue current antibiotic and antifungal. Cultures are pending. BRANDON. Likely caused by sepsis. Patient may have ATN already. Recent CAT scan of the abdomen completed 2 days prior to admission showed bilateral hydronephrosis secondary to pyelonephritis and bladder wall thickening. No obstructing stone Improvement of kidney function over the last 96 hours. No indication for dialysis at this time. Normal potassium. No metabolic acidosis Anemia. Likely chronic. Rectal exam completed in the emergency room department as per emergency room provider and reported to be negative for blood. Requested iron study, ferritin Monitor hemoglobin Septic and metabolic encephalopathy: Altered mental status, diminished responsiveness and weakness Significant resolution of acute encephalopathy over the last 16 hours. Patient is awake, alert and coherent. Able to engage. CT head does not show any acute intracranial process but positive for evidence of recent craniotomy and tumor resection. Functional impairment and disability Could be related to metabolic and septic encephalopathy Unknown baseline but reported history of MS and brain tumor resection. Will need to verify her baseline functional status prior to this acute illness. History of brain cancer s/p resection. Completed in September according to her son in [place]. Chronic medical conditions not listed above, incidental findings seen on labs and imaging. These would need to be addressed. Could be addressed when time and condition are appropriate. Could be addressed in the outpatient setting by PCP collaboration with other needed outpatient providers. Status at the nursing facility DNR CCA. Patient status is dynamic and evolutionary therefore the aforementioned assessment and plan may or may not be complete or conclusive. The patient would likely require to have additional workup, desiccation, therapeutic dilation and consultation but will be determined based on the clinical progression and follow-up as result Social issues Since patient came here to [place] I did not see any family visiting her. I called her son 3 times yesterday, he never picked up the phone I called her daughter, she did not fish bait picker the phone. I could not leave a message due to mailbox being full and unable to accept any further messages Urinary Catheter Management Urinary Catheter Management Urethral: Cath placed during this visit: yes, but has since been removed by the nurse Insertion date: 11/28/24 Insertion time: 10:10 Removal date: 11/28/24 Removal time: 10:00
[2024-11-30] MEDS: DEXAMETHASONE SOD PHOS 4 MG/ML VIAL 6 MG IV ×2 (09:50→21:14)
[2024-11-30] MEDS: METOPROLOL TARTRATE 25 MG TABLET PO ×2 (09:50→21:14)
[2024-11-30] MEDS: IMIPENEM/CILASTATIN SODIUM 500 MG in 0.9 % SODIUM CHLORIDE 100 ML 100 MG IV (11:57)
[2024-11-30] MEDS: INSULIN ASPART 300 UNIT/3 ML PEN SUBQ ×2 (11:59→16:44)
[2024-11-30] MEDS: 0.9 % SODIUM CHLORIDE 250 ML IV (12:03)
--- NOTE | 2024-11-30 12:08 | CM.NOTE ---
Called from Med Surg secretary office clerk that pt's son requesting to speak with Case Management. Case Management into room, pt's son has bank paper that need to witnessed for pt. Discussed with son making sure paperwork did not need a notary, son states just a witness to sign. Pt is A&Ox3 when asking questions. Pt verbalizes understanding of paperwork that needs to be signed by the bank. [employer] is changing ownership to [employer], Case Management witnessed signatures for pt and son.
--- NOTE | 2024-11-30 12:25 | PM.EN ---
Event Note Event Note: Urine culture thus far is coming back positive for Enterococcus. We will change antibiotic to Unasyn with 1 dose of gentamicin for synergistic effect. Subsequently went back to check up on the patient. Patient is up in the chair. Awake. Able to hold conversation. Her son [place] is in the room. I gave him update on her condition, status and treatment plan. Her son is very appreciative of the care that his mom is receiving here at [facility]
--- NOTE | 2024-11-30 13:09 | SWNOTE1 ---
SW and I stopped in pt's room to discuss therapy recommendation of going to SNF. Pt was up in the chair. Pt is from [facility] rn long term care. I asked pt how it was going over there, she voiced she didn't really like it that much. SW asked pt if she plans to return to [facility]. Pt voiced she was unsure and would like SW to call her son. SW did discuss with pt that therapy recommended rehab to get her strength up. Pt was agreeable. SW did ask pt if there was any particular reason pt does not like [facility] and pt voiced no. No other questions or concerns at this time. SW to send referral for rehab at [facility].
[2024-11-30] MEDS: GENTAMICIN SULFATE 80 MG in 0.9 % SODIUM CHLORIDE 100 ML 204 MG IV (13:10)
--- NOTE | 2024-11-30 13:13 | SWNOTE1 ---
Pt requested SW speak to pt's son, Aman via telephone in regards to discharge plans. SW called and spoke to Aman. SW let him know the recommendations from out therapy team for some more therapy at [facility]. Pt's son in agreement and voiced that would be great. SW to send Renuka at [facility] updates with therapy notes. Pt is a precert.
--- NOTE | 2024-11-30 13:16 | SWNOTE1 ---
OZZY messaged Dr. Oneill to update.
--- NOTE | 2024-11-30 13:17 | SWNOTE1 ---
Important Message from Medicare reviewed and discussed with patient. Pt. verbalized understanding and signed the form. Original given to patient and copy placed in patient?s chart.
--- NOTE | 2024-11-30 13:41 | SWNOTE1 ---
Renuka at [facility] started precert, will need PT notes to add to precert.
--- NOTE | 2024-11-30 14:13 | CM.NOTE ---
Cheo txt Dr. Oneill preliminary urine culture.
--- OUTSIDE RECORDS SUMMARY | 2024-11-30 15:02 | XMS_ITS | Encounter Summary ---
Author Organization [facility] Address [facility] [place] [address] Care Team Providers Care Environmental Management Specialist Name Role Phone Valdez Acosta MD Primary Care Provider [phone] Dian Smith PA-C Unavailable [phone] Malinda Lopez CHIEF MATE.CHILD CARE PROVIDER Unavailable + [phone] Source Comments In the event this information is protected by the Federal Confidentiality of Alcohol and Drug AbusePatient Records regulations: The Federal rules restrict any use of the information to criminally investigate or prosecute any alcohol or drug abuse patient.[facility] Encounter Details Date Type Department Care Team (Late st Contact Info) Description 06/13/2021 Patient [facility] [address] [place] [id number] Gi Khan APRN.CHILD CARE PROVIDER [address] [place] [address] tc Social History Tobacco Use [...] Never 08/02/2020 How often do you attend restorationist or buddhist serv ices? Never 08/02/2020 Do [...] Answer Date Recorded PHQ-2 score 5 10/30/2020 [facility] - Occupational [...] ot on file 04/27/2020 Data from: https://www.neighborhoodatlas.medicine.[facility].edu/. Last address used for calculation [...] on filedocumented in this encounter Care Teams Environmental Management Specialist Relationship Specialty Start Date End Date Valdez Acosta MD [address] [place] [address] PCP - General Internal Medicine 11/01/20 Dian Smith PA-C [address] [place] [id number] Mathematical Technician Internal Medicine 04/26/24 05/21/24 Malinda Lopez APRN.CHILD CARE PROVIDER [address] [place] [id number] Mathematical Technician Family Medicine 04/26/24 documented as of this encounter
--- OUTSIDE RECORDS SUMMARY | 2024-11-30 15:02 | XMS_ITS | Encounter Summary ---
Author Organization [facility] Address [address] [place] [address] Care Team Providers Care Warehouse And Receiving Supervisor Name Role Phone Valdez Acosta MD Primary Care Provider [phone] Dian Smith PA-C Unavailable [phone] Malinda Lopez APRN.FOOD SERVICE TRAY ATTENDANT Unavailable + [phone] Source Comments In the event this information is protected by the Federal Confidentiality of Alcohol and Drug AbusePatient Records regulations: The Federal rules restrict any use of the information to criminally investigate or prosecute any alcohol or drug abuse patient.[facility] Encounter Details Date Type Department Care Team (Late st Contact Info) Description 11/12/2021 [place] [address] Provider, Ccf Questionnaire Submission Social History Tobacco [...] Never 08/02/2020 How often do you attend roman catholic or spiritism serv ices? Never 08/02/2020 Do you belong to any clubs o r organizations such as roman catholic groups, unions, fraternal or athletic groups, [...] Answer Date Recorded PHQ-2 score 5 09/15/2021 [facility]at [facility] - Occupational [...] place to sleep or slept in a [place] health care facility (including now)? No 08/02/2020 Area Deprivation Index Answer Date Chris rded National Score (1-100), lower number is lower ri sk 60 11/14/2021 State Score (1-10), lower number is lower risk N ot on file 11/14/2021 Data from: https://www.neighborhoodatlas.medicine.[facility].edu/. Last address used for calculation [address] [...] on filedocumented in this encounter Care Teams Warehouse And Receiving Supervisor Relationship Specialty Start Date End Date Valdez Acosta MD [address] [place] [address] PCP - General Internal Medicine 11/01/20 Dian Smith PA-C [address] [place] [phone] Medical Collections Internal Medicine 04/26/24 05/21/24 Malinda Lopez APRN.FOOD SERVICE TRAY ATTENDANT [address] [place] [address] Medical Collections Family Medicine 04/26/24 documented as of this encounter
--- OUTSIDE RECORDS SUMMARY | 2024-11-30 15:02 | XMS_ITS | Encounter Summary ---
Author Organization [facility] Address [facility] [place] [address] Care Team Providers Care Shape Hand Name Role Phone Kirk Wyatt Segundo Primary Care Provider Frances Hills (Rn) port traffic manager Provider Valdez Bhandari MD Primary Care Provider [phone] Dian Smith PA-C Unavailable [phone] Malinda Lopez APRN.SHIRT FOLDER Unavailable + [phone] Source Comments In the event this information is protected by the Federal Confidentiality of Alcohol and Drug AbusePatient Records regulations: The Federal rules restrict any use of the information to criminally investigate or prosecute any alcohol or drug abuse patient.[facility] Encounter Details Date Type Department Care Team (Late st Contact Info) Description 03/03/2014 Patient Msg Medical Records [address] [place] [id number] Provider, Ccf labs and office visit Social [...] documented as of this encounter Care Teams Shape Hand Relationship Specialty Start Date End Date Wyatt Bradley PCP - General Internal Medicine 05/21/12 12/05/17 Frances Hills (Rn), RN PCP - General 12/06/17 10/31/20 Valdez Acosta MD [address] [place] [address] PCP - General Internal Medicine 11/01/20 Dian Smith PA-C [address] [place] [address] Pharmaceutical Detailer Internal Medicine 04/26/24 05/21/24 Malinda Lopez, RESILIENT TILE INSTALLER.SHIRT FOLDER [address] [place] [address] Pharmaceutical Detailer Family Medicine 04/26/24 documented as of this encounter
--- OUTSIDE RECORDS SUMMARY | 2024-11-30 15:02 | XMS_ITS | Encounter Summary ---
Author Organization [facility] Address [address] [place] [address] Care Team Providers Care Automotive Buyer Name Role Phone Frances Hills (Rn) chisel grinder Provider Valdez Bhandari MD Primary Care Provider +- [phone] Dian Smith PA-C Unavailable + [phone] Malinda Lopez APRN.[facility] Unavailable + [phone] Source Comments In the event this information is protected by the Federal Confidentiality of Alcohol and Drug AbusePatient Records regulations: The Federal rules restrict any use of the information to criminally investigate or prosecute any alcohol or drug abuse patient.[facility] Encounter Details Date Type Department Care Team (Late st Contact Info) Description 09/15/2020 [facility] [address] [place] [address] Aylin Garrison PA-C [address] [place] [address] RE: Non-Urgent Medical Question Social History [...] Never 08/02/2020 How often do you attend denominational or voodoo serv ices? Never 08/02/2020 Do you belong to any clubs o r organizations such as denominational groups, unions, fraternal or athletic groups, or [...] Answer Date Recorded PHQ-2 score 3 08/02/2020 [facility] of Occupat ional Health - Occupational Stress [...] N ot on file 04/27/2020 Data from: https://www.neighborhoodatlas.medicine.[facility].edu/. Last address used for calculation [...] on filedocumented in this encounter Care Teams Automotive Buyer Relationship Specialty Start Date End Date Reinier August (Rn), RN PCP - General 12/06/17 10/31/20 Valdez Acosta MD [address] [place] [address] PCP - General Internal Medicine 11/01/20 Dian Smith PA-C [facility] [place] [address] Centerless Grinder Operator Internal Medicine 04/26/24 05/21/24 Malinda Lopez, GAS BRAZER.STEEL DETAILER [address] [place] [address] Centerless Grinder Operator Family Medicine 04/26/24 documented as of this encounter
--- OUTSIDE RECORDS SUMMARY | 2024-11-30 15:02 | XMS_ITS | Encounter Summary ---
Author Organization [facility] Address [address] [place] [address] Care Team Providers Care Lens Fabricating Machine Tender Name Role Phone Valdez Acosta MD Primary Care Provider [phone] Dian Smith PA-C Unavailable + [phone] Malinda Lopez APRN.BACKHOE OPERATOR Unavailable + [phone] Source Comments In the event this information is protected by the Federal Confidentiality of Alcohol and Drug AbusePatient Records regulations: The Federal rules restrict any use of the information to criminally investigate or prosecute any alcohol or drug abuse patient.[facility] Encounter Details Date Type Department Care Team (Late st Contact Info) Description 11/08/2020 [facility] [address] [id number] Lanie Lombardi APRN.BACKHOE OPERATOR [address] [address] RE: Test Result Question Social History Tobacco [...] How often do you attend pentecostalism or evangelical serv ices? Never 08/02/2020 Do you belong [...] Date Recorded PHQ-2 score 5 10/30/2020 [facility] of Occupat ional Health - [...] N ot on file 04/27/2020 Data from: https://www.neighborhoodatlas.medicine.[facility].edu/. Last address used for calculation Not [...] on filedocumented in this encounter Care Teams Lens Fabricating Machine Tender Relationship Specialty Start Date End Date Valdez Acosta MD [address] [place] [address] PCP - General Internal Medicine 11/01/20 Dian Smith PA-C [address] [place] [address] Spa Associate Internal Medicine 04/26/24 05/21/24 Malinda Lopez APRN.BACKHOE OPERATOR [address] [place] [place] [address] [phone] Spa Associate Family Medicine 04/26/24 documented as of this encounter
--- OUTSIDE RECORDS SUMMARY | 2024-11-30 15:02 | XMS_ITS | Encounter Summary ---
Author Organization [facility] Address [facility] [place] [address] Care Team Providers Care Global Consumer Sector Vice President Name Role Phone Valdez Acosta MD Primary Care Provider [phone] Dian Smith PA-C Unavailable + [phone] Malinda Lopez APRN.ASSEMBLY WORKER Unavailable + [phone] Source Comments In the event this information is protected by the Federal Confidentiality of Alcohol and Drug AbusePatient Records regulations: The Federal rules restrict any use of the information to criminally investigate or prosecute any alcohol or drug abuse patient.[facility] Encounter Details Date Type Department Care Team (Late st Contact Info) Description 09/08/2021 Patient Msg Neurology [address] [id number] Provider, Ccskyler For infusion approval you needed [...] often do you attend roman catholic or zoroastrian serv ices? Never 08/02/2020 Do [...] PHQ-2 score 5 10/30/2020 [facility] - Occupational Stress Questionnaire Answer [...] on file 04/27/2020 Data from: https://www.neighborhoodatlas.medicine.[facility].edu/. Last address used for calculation [...] on filedocumented in this encounter Care Teams Global Consumer Sector Vice President Relationship Specialty Start Date End Date Valdez Acosta MD [address] [place] [address] PCP - General Internal Medicine 11/01/20 Dian Smith PA-C [address] [place] [address] Private Tutors And Teachers Internal Medicine 04/26/24 05/21/24 Malinda Lopez APRN.ASSEMBLY WORKER [address] [place] [address] Private Tutors And Teachers Family Medicine 04/26/24 documented as of this encounter
--- OUTSIDE RECORDS SUMMARY | 2024-11-30 15:02 | XMS_ITS | Encounter Summary ---
Author Organization [facility] Address [address] [place] [address] Care Team Providers Care Front Office Specialist Name Role Phone Valdez Acosta MD Primary Care Provider +- [phone] Dian Smith PA-C Unavailable + [phone] Malinda Lopez APRN.COIL ASSEMBLER Unavailable + [phone] Source Comments In the event this information is protected by the Federal Confidentiality of Alcohol and Drug AbusePatient Records regulations: The Federal rules restrict any use of the information to criminally investigate or prosecute any alcohol or drug abuse patient.[facility] Encounter Details Date Type Department Care Team (Late st Contact Info) Description 11/06/2020 Patient Msg MRI J [address] [place] [address] Provider, Ccf MRI Screening Social [...] How often do you attend presybeterian or nondenominational serv ices? Never 08/02/2020 Do [...] Answer Date Recorded PHQ-2 score 5 10/30/2020 [facility] of Occupat ional Health - [...] filedocumented in this encounter Care Teams Front Office Specialist Relationship Specialty Start Date End Date Valdez Acosta MD [address] [place] [address] PCP - General Internal Medicine 11/01/20 Dian Smith PA-C [address] [place] [address] Relief Man Internal Medicine 04/26/24 05/21/24 Malinda Lopez APRN.COIL ASSEMBLER [address] [place] [address] Relief Man Family Medicine 04/26/24 documented as of this encounter
--- OUTSIDE RECORDS SUMMARY | 2024-11-30 15:02 | XMS_ITS | Encounter Summary ---
Author Organization [facility] Address [address] [place] [address] Care Team Providers Care Lead Etl Developer Name Role Phone Frances Hills (Rn) dry paste supervisor Provider Valdez Bhandari MD Primary Care Provider +- [phone] Dian Smith PA-C Unavailable + [phone] Malinda Lopez APRN.[facility] Unavailable + [phone] Source Comments In the event this information is protected by the Federal Confidentiality of Alcohol and Drug AbusePatient Records regulations: The Federal rules restrict any use of the information to criminally investigate or prosecute any alcohol or drug abuse patient.[facility] Encounter Details Date Type Department Care Team (Late st Contact Info) Description 08/03/2020 [facility] [address] [place] [address] Aylin Garrison PA-C [address] [place] [address] RE: Non-Urgent Medical Question Social History [...] Never 08/02/2020 How often do you attend shinto or christian serv ices? Never 08/02/2020 Do you belong to any clubs o r organizations such as shinto groups, unions, fraternal or athletic groups, or [...] Answer Date Recorded PHQ-2 score 3 08/02/2020 [facility] [place] of Occupat ional Health - Occupational Stress [...] on file 04/27/2020 Data from: https://www.neighborhoodatlas.medicine.[facility].edu/. Last address used for calculation [...] documented as of this encounter Care Teams Lead Etl Developer Relationship Specialty Start Date End Date August (Rn), RN PCP - General 12/06/17 10/31/20 Valdez Acosta MD [address] [place] [address] PCP - General Internal Medicine 11/01/20 Dian Smith PA-C [address] [place] [address] Sleep Tech Internal Medicine 04/26/24 05/21/24 Malinda Lopez, WAREHOUSE EXAMINER.FOLDED CLOTH TAPER [address] [place], [place] [address] [place] [address] Sleep Tech Family Medicine 04/26/24 documented as of this encounter
--- OUTSIDE RECORDS SUMMARY | 2024-11-30 15:02 | XMS_ITS | Encounter Summary ---
Author Organization [facility] Address [address] [place] [address] Care Team Providers Care Wholesale Representative Name Role Phone Frances Hills (Rn) electrotyper apprentice Provider Valdez Bhandari MD Primary Care Provider +- [phone] Dian Smith PA-C Unavailable + [phone] Malinda Lopez APRN.[facility] Unavailable + [phone] Source Comments In the event this information is protected by the Federal Confidentiality of Alcohol and Drug AbusePatient Records regulations: The Federal rules restrict any use of the information to criminally investigate or prosecute any alcohol or drug abuse patient.[facility] Encounter Details Date Type Department Care Team (Late st Contact Info) Description 07/29/2020 [facility] [address] [place] [address] Aylin Garrison PA-C [address] [place] [address] RE: Upcoming Appointment Question Social History [...] Never 08/02/2020 How often do you attend buddhism or rastafari serv ices? Never 08/02/2020 Do you belong to any clubs o r organizations such as buddhism groups, unions, fraternal or athletic groups, or [...] Answer Date Recorded PHQ-2 score 3 08/02/2020 [facility] of Occupat ional [...] N ot on file 04/27/2020 Data from: https://www.neighborhoodatlas.medicine.[facility].edu/. Last address used for calculation Not [...] documented as of this encounter Care Teams Wholesale Representative Relationship Specialty Start Date End Date August (Rn), RN PCP - General 12/06/17 10/31/20 Valdez Acosta MD [address] [place] [address] PCP - General Internal Medicine 11/01/20 Dian Smith PA-C [address] [place] [address] Mission Systems Engineer Internal Medicine 04/26/24 05/21/24 Malinda Lopez APRN.SET PAINTER [address] [place] [address] Mission Systems Engineer Family Medicine 04/26/24 documented as of this encounter
--- OUTSIDE RECORDS SUMMARY | 2024-11-30 15:02 | XMS_ITS | Encounter Summary ---
Author Organization [facility] Address [facility] [place] [address] Care Team Providers Care Sealing Machine Operator Name Role Phone Kirk Wyatt Segundo Primary Care Provider Frances Hills (Rn) catering attendant Provider Valdez Bhandari MD Primary Care Provider [phone] Dian Smith PA-C Unavailable + [phone] Malinda Lopez APRN.PATIENT ACCOUNT SPECIALIST Unavailable + [phone] Source Comments In the event this information is protected by the Federal Confidentiality of Alcohol and Drug AbusePatient Records regulations: The Federal rules restrict any use of the information to criminally investigate or prosecute any alcohol or drug abuse patient.[facility] Encounter Details Date Type Department Care Team (Late st Contact Info) Description 09/14/2015 Patient Msg Medical Records [address] [place] [address] Provider, Ccf labs Social History Tobacco Use [...] documented as of this encounter Care Teams Sealing Machine Operator Relationship Specialty Start Date End Date Wyatt Bradley PCP - General Internal Medicine 05/21/12 12/05/17 Frances Hills (Rn), RN PCP - General 12/06/17 10/31/20 Valdez Acosta MD [address] [facility] [place] [address] PCP - General Internal Medicine 11/01/20 Dian Smith PA-C [address] [place], [place] [phone] Frame Stylist Internal Medicine 04/26/24 05/21/24 Malinda Lopez, TURNER SPLITTER MACHINE OPERATOR.[facility] [address] [place] [address] [phone] Frame Stylist Family Medicine 04/26/24 documented as of this encounter
--- OUTSIDE RECORDS SUMMARY | 2024-11-30 15:02 | XMS_ITS | Encounter Summary ---
Author Organization [facility] Address [facility] [place] [address] Care Team Providers Care Inspector Machine Cut Glass Name Role Phone Kirk Wyatt Segundo Primary Care Provider Frances Hills (Rn) staffing executive Provider Valdez Bhandari MD Primary Care Provider [phone] Dian Smith PA-C Unavailable + [phone] Malinda Lopez APRN.OPTICAL LABORATORY MECHANIC Unavailable + [phone] Source Comments In the event this information is protected by the Federal Confidentiality of Alcohol and Drug AbusePatient Records regulations: The Federal rules restrict any use of the information to criminally investigate or prosecute any alcohol or drug abuse patient.[facility] Encounter Details Date Type Department Care Team (Late st Contact Info) Description 08/11/2015 Patient Msg Medical Records [address] [place] [address] Provider, Ccf CBC results Social History Tobacco [...] documented as of this encounter Care Teams Inspector Machine Cut Glass Relationship Specialty Start Date End Date Wyatt Bradley PCP - General Internal Medicine 05/21/12 12/05/17 Frances Hills (Rn), MOE PCP - General 12/06/17 10/31/20 Valdez Acosta MD [address] [facility] [place] [address] PCP - General Internal Medicine 11/01/20 Dian Smith PA-C [address] [place], [place] [phone] Knowledge Engineer Internal Medicine 04/26/24 05/21/24 Malinda Lopez, TECHNICAL SALES SUPPORT MANAGER.[facility] [address] [place] [address] [phone] Knowledge Engineer Family Medicine 04/26/24 documented as of this encounter
--- OUTSIDE RECORDS SUMMARY | 2024-11-30 15:02 | XMS_ITS | Encounter Summary ---
Author Organization [facility] Address [address] [place] [address] Care Team Providers Care Clerical Grader Name Role Phone Frances Hills (Rn) collar separator Provider Valdez Bhandari MD Primary Care Provider +- [phone] Dian Smith PA-C Unavailable + [phone] Malinda Lopez APRN.[facility] Unavailable + [phone] Source Comments In the event this information is protected by the Federal Confidentiality of Alcohol and Drug AbusePatient Records regulations: The Federal rules restrict any use of the information to criminally investigate or prosecute any alcohol or drug abuse patient.[facility] Encounter Details Date Type Department Care Team (Late st Contact Info) Description 08/03/2020 [facility] [address] [place] [address] Aylin Garrison PA-C [address] [place] [address] RE: Non-Urgent Medical Question Social History [...] Never 08/02/2020 How often do you attend alevism or evangelical serv ices? Never 08/02/2020 Do you belong to any clubs o r organizations such as alevism groups, unions, fraternal or athletic groups, or [...] Answer Date Recorded PHQ-2 score 3 08/02/2020 [facility] [place] of Occupat ional Health - Occupational Stress [...] ot on file 04/27/2020 Data from: https://www.neighborhoodatlas.medicine.[facility].edu/. Last address used for calculation Not [...] documented as of this encounter Care Teams Clerical Grader Relationship Specialty Start Date End Date August (Rn), RN PCP - General 12/06/17 10/31/20 Valdez Acosta MD [address] [place] [address] PCP - General Internal Medicine 11/01/20 Dian Smith PA-C [address] [place] [address] Agile Coach Internal Medicine 04/26/24 05/21/24 Malinda Lopez, AIR BAG BUILDER.ENROLLMENT SPECIALIST [address] [place], [place] [address] [place] [address] Agile Coach Family Medicine 04/26/24 documented as of this encounter
--- OUTSIDE RECORDS SUMMARY | 2024-11-30 15:02 | XMS_ITS | Encounter Summary ---
Author Organization [facility] Address [facility] [place] [address] Care Team Providers Care Crimper Operator Name Role Phone Kirk Wyatt Segundo Primary Care Provider Frances Hills (Rn) creative manager Provider Valdez Bhandari MD Primary Care Provider [phone] Dian Smith PA-C Unavailable + [phone] Malinda Lopez APRN.STRIPPER APPRENTICE Unavailable + [phone] Source Comments In the event this information is protected by the Federal Confidentiality of Alcohol and Drug AbusePatient Records regulations: The Federal rules restrict any use of the information to criminally investigate or prosecute any alcohol or drug abuse patient.[facility] Encounter Details Date Type Department Care Team (Late st Contact Info) Description 08/30/2016 Patient Msg Medical Records [address] [place] [address] Provider, Ccf Labs Social History Tobacco Use [...] documented as of this encounter Care Teams Crimper Operator Relationship Specialty Start Date End Date Wyatt Bradley PCP - General Internal Medicine 05/21/12 12/05/17 Frances Hills (Rn), RN PCP - General 12/06/17 10/31/20 Valdez Acosta MD [address] [place] [address] PCP - General Internal Medicine 11/01/20 Dian Smith PA-C [address] [place], [place] [phone] Heel Seat Sander Internal Medicine 04/26/24 05/21/24 Malinda Lopez, IMAGING MANAGER.[facility] [address] [place] [address] [phone] Heel Seat Sander Family Medicine 04/26/24 documented as of this encounter
--- OUTSIDE RECORDS SUMMARY | 2024-11-30 15:02 | XMS_ITS | Clinical Summary ---
Author Organization [facility] Address [address] [place] [address] Care Team Providers Care Mail Handlers Supervisor Name Role Phone Valdez Acosta MD Primary Care Provider [phone] Malinda Lopez APRN.CAT SCANNER OPERATOR Unavailable [phone] Allergies No known active allergies Medications * [...] Never 08/02/2020 How often do you attend catholic or taoist serv ices? Never 08/02/2020 Do you belong [...] PHQ-2 score 5 09/05/2023 [facility] - Occupational Stress Questionnaire Answer [...] is lower risk 4 09/20/2022 Data from: https://www.neighborhoodatlas.medicine.[facility].edu/. Last address used for calculation [...] - 8.0 g/dL 05/22/2023 2:38 PM EST [facility] Albumin 4.0 3.9 - 4.9 g/dL 05/22/2023 2:38 PM EST [facility] Calcium, Total 9.4 8.5 - 10.2 mg/dL 05/22/2023 2:38 PM EST [facility] Bilirubin, Total 0.3 0.2 - 1.3 mg/dL 05/22/2023 2:38 PM EST [facility] Alkaline Phosphatase 90 34 - 123 U/L 05/22/2023 2:38 PM EST [facility] AST 25 13 - 35 U/L 05/22/2023 2:38 PM EST [facility] ALT 23 7 - 38 U/L 05/22/2023 2:38 PM EST [facility] Glucose 88 74 - 99 mg/dL 05/22/2023 2:38 PM EST [facility] Comment: The [place] Diabetes Association (ADA) provides guidance for cutoff [...] Standards of Medical Care in Diabetes 2016, [place] Diabetes Association. Diabetes Care. 2016.39(Suppl 1). BUN 17 7 - 21 mg/dL 05/22/2023 2:38 PM EST [facility] Creatinine 1.04(H) 0.58 - 0.96 mg/dL 05/22/2023 2:38 PM EST [facility] Sodium 143 136 - 144 mmol/L 05/22/2023 2:38 PM EST [facility] Potassium 3.7 3.7 - 5.1 mmol/L 05/22/2023 2:38 PM [facility] Chloride 103 97 - 105 mmol/L 05/22/2023 2:38 PM EST [facility] CO2 27 22 - 30 mmol/L 05/22/2023 2:38 PM EST [facility] Anion Gap 13 9 - 18 mmol/L 05/22/2023 2:38 PM EST [facility] Estimated Glomerular Filtration Rate 64 >=60 mL/min/1. 73m 05/22/2023 2:38 PM EST [facility] Comment:Estimated Glomerular Filtration Rate (eGFR) is [...] us Aylin Garrison PA-C LABORATORY Final Result [facility] [address] [place] [address], * (ABNORMAL) LIPID PANEL BASIC (09/18/2021 8:07 AM EDT) [facility] Cholesterol, Total 142 <200 mg/dL 09/18/2021 4:40 PM EDT [facility] Comment: <200 mg/dL, Desirable 200-239 mg/dL, Borderline high >239 mg/dL, High Triglyceride 157(H) <150 mg/dL 09/18/2021 4:40 PM EDT [facility] Comment: <150 mg/dL, Normal 150-199 mg/dL, Borderline high 200-499 mg/dL, High >499 mg/dL, Very high HDL Cholesterol 39(L) >39 mg/dL 4:40 PM T [facility] Comment: 40-59 mg/dL, Acceptable >59 mg/dL, High: Negative risk factor for coronary heart disease <40 mg/dL, Low: Positive risk factor for coronary heart disease Non HDL Cholesterol 103 <130 mg/dL 09/18/2021 4:40 PM EDT [facility] Comment: <130 mg/dL, Optimal 130-159 mg/dL, Near optimal/above optimal 160-189 mg/dL, Borderline high 190-219 mg/dL, High >219 mg/dL, Very high Secondary prevention optimal non HDL Cholesterol levels are recommended to be <100 mg/dL Fasting Time 14 hours hrs 09/18/2021 4:40 PM T [facility] VLDL Cholesterol 31(H) <30 mg/dL 09/19/19 4:40 PM EDT [facility] TC:HDL Ratio 3.64 <5.10 09/18/2021 4:40 PM T [facility] LDL Cholesterol, Calculated 72 <100 mg/dL 09/18/2021 4:40 PM T [facility] Comment: <100 mg/dL, Optimal 100-129 mg/dL, Near optimal/above optimal 130-159 mg/dL, Borderline high 160-189 mg/dL, High >189 mg/dL, Very high Secondary prevention optimal LDL Cholesterol levels are recommended to be < 70 mg/dL LDL:HDL Ratio 1.85 <2.54 09/18/2021 4:40 PM T [facility] Comment: Reference: 1. National Cholesterol Education Program ATP III Guideline At-A-Glance Quick Desk Reference: National Heart, Lung, and Blood [place]. National Institutes of Health. 2001: NIH Publication No. 01-3305. 2. An International Atherosclerosis Society position paper: global recommendations for the management of dyslipidemia: executive summary, Atherosclerosis. 2014: 232(2):410-413. Blood BLOOD SPECIMEN / Unknown Venipuncture / Unknown 09/18/2021 8:07 AM EDT 09/18/2021 3:12 PM EDT us Aylin Garrison PA-C LABORATORY Final Result [facility] [address] [facility] [address] [place] [address], * HEP REMOTE PANEL BL (07/15/2020 11:23 AM EST) Hep B Core Ab, Total Negative Negative 07/15/2020 7:02 PM EST [facility] Certain Hep C Antibody IA Negative Negative 07/15/2020 7:03 PM EST [facility] HBsAg Negative Negative 07/15/2020 7:03 PM EST [facility] Hep B Surface Ab, Qual Negative Negative 07/15/2020 7:03 PM EST [facility] Comment:NEGATIVE Blood BLOOD SPECIMEN / Unknown 07/15/2020 11:23 AM EST 07/15/2020 11:25 AM EST Prosper Zheng MD, PhD LABORATORY Final Resu lt [facility] [address] [facility] [place] [address] [facility] [address] [place] [address] from Last 3 Months or Most Recently Relevant to Health Maintenance [place] [address] [address] [place] [address] Care Teams Mail Handlers Supervisor Relationship Specialty Start Date End Date Valdez Acosta MD [address] [place] [address] PCP - General Internal Medicine 11/01/20 Malinda Lopez, WILDLIFE REFUGE SPECIALIST.[facility] [address] [place] [address] Groundman Family Medicine 04/26/24
--- OUTSIDE RECORDS SUMMARY | 2024-11-30 15:02 | XMS_ITS | Encounter Summary ---
Author Organization [facility] Address [address] [place] [address] Care Team Providers Care Auto Tune Up Mechanic Name Role Phone Valdez Acosta MD Primary Care Provider [phone] Dian Smith PA-C Unavailable [phone] Malinda Lopez APRN.RESPIRATORY THERAPY ASSISTANT Unavailable + [phone] Source Comments In the event this information is protected by the Federal Confidentiality of Alcohol and Drug AbusePatient Records regulations: The Federal rules restrict any use of the information to criminally investigate or prosecute any alcohol or drug abuse patient.[facility] Encounter Details Date Type Department Care Team (Late st Contact Info) Description 03/15/2021 Patient [facility] [address] [phone] Provider, Ccf Please call to reschedule Follow [...] How often do you attend presybeterian or religion serv ices? Never 08/02/2020 Do you belong [...] PHQ-2 score 5 10/30/2020 [facility] - Occupational Stress Questionnaire Answer Date [...] slept in a penitentiary (including now)? No 08/02/2020 Area Deprivation Index Answer Date Chris rded National Score (1-100), lower number is lower ri sk Not on file 04/27/2020 State Score (1-10), lower number is lower risk N ot on file 04/27/2020 Data from: https://www.neighborhoodatlas.medicine.[facility].edu/. Last address used for calculation Not [...] on filedocumented in this encounter Care Teams Auto Tune Up Mechanic Relationship Specialty Start Date End Date Valdez Acosta MD [address] [place] [address] PCP - General Internal Medicine 11/01/20 Dian Smith PA-C [facility] [place] [address] Workforce Consultant Internal Medicine 04/26/24 05/21/24 Malinda Lopez APRN.RESPIRATORY THERAPY ASSISTANT [address] [place] [address] Workforce Consultant Family Medicine 04/26/24 documented as of this encounter
--- OUTSIDE RECORDS SUMMARY | 2024-11-30 15:02 | XMS_ITS | Encounter Summary ---
Author Organization [facility] Address [address] [place] [address] Care Team Providers Care Vacuum Evaporation Operator Name Role Phone Frances Hills (Rn) building inspector Provider Valdez Bhandari MD Primary Care Provider [phone] Dian Smith PA-C Unavailable [phone] Malinda Lopez APRN.[facility] Unavailable + [phone] Source Comments In the event this information is protected by the Federal Confidentiality of Alcohol and Drug AbusePatient Records regulations: The Federal rules restrict any use of the information to criminally investigate or prosecute any alcohol or drug abuse patient.[facility] Encounter Details Date Type Department Care Team (Late st Contact Info) Description 09/08/2020 [facility] [address] [place] [address] Aylin Garrison PA-C [address] [place] [address] RE: Non-Urgent Medical Question Social History [...] Never 08/02/2020 How often do you attend bahai or confucianism serv ices? Never 08/02/2020 Do you belong to any clubs o r organizations such as bahai groups, unions, fraternal [...] Answer Date Recorded PHQ-2 score 3 08/02/2020 [facility] [place] of Occupat ional Health - Occupational Stress [...] N ot on file 04/27/2020 Data from: https://www.neighborhoodatlas.medicine.[facility].edu/. Last address used for calculation Not [...] on filedocumented in this encounter Care Teams Vacuum Evaporation Operator Relationship Specialty Start Date End Date Reinier August (Rn), RN PCP - General 12/06/17 10/31/20 Valdez Acosta MD [address] [place] [address] PCP - General Internal Medicine 11/01/20 Dian Smith PA-C [facility] [place] [address] Cytology Laboratory Manager Internal Medicine 04/26/24 05/21/24 Malinda Lopez, WIND TURBINE MECHANIC.RECORDS MANAGEMENT ASSISTANT [address] [place] [address] Cytology Laboratory Manager Family Medicine 04/26/24 documented as of this encounter
--- OUTSIDE RECORDS SUMMARY | 2024-11-30 15:02 | XMS_ITS | Encounter Summary ---
Author Organization [facility] Address [facility] [place] [address] Care Team Providers Care Machining Technician Name Role Phone Valdez Acosta MD Primary Care Provider [phone] Dian Smith PA-C Unavailable [phone] Malinda Lopez APRN.COMMUNICATIONS PROGRAMMER Unavailable + [phone] Source Comments In the event this information is protected by the Federal Confidentiality of Alcohol and Drug AbusePatient Records regulations: The Federal rules restrict any use of the information to criminally investigate or prosecute any alcohol or drug abuse patient.[facility] Encounter Details Date Type Department Care Team (Late st Contact Info) Description 04/22/2021 Patient Msg Neurology [address] [phone] Provider, Ccf Appointment with Aylin Garrison Social [...] How often do you attend presybeterian or yazidism serv ices? Never 08/02/2020 Do you belong [...] Answer Date Recorded PHQ-2 score 5 10/30/2020 [facility] - Occupational Stress Questionnaire Answer [...] N ot on file 04/27/2020 Data from: https://www.neighborhoodatlas.medicine.[facility].edu/. Last address used for calculation Not [...] on filedocumented in this encounter Care Teams Machining Technician Relationship Specialty Start Date End Date Valdez Acosta MD [address] [place] [address] PCP - General Internal Medicine 11/01/20 Dian Smith PA-C [address] [place] [address] Hse Advisor Internal Medicine 04/26/24 05/21/24 Malinda Lopez APRN.COMMUNICATIONS PROGRAMMER [address] [place] [address] Hse Advisor Family Medicine 04/26/24 documented as of this encounter
--- OUTSIDE RECORDS SUMMARY | 2024-11-30 15:02 | XMS_ITS | Encounter Summary ---
Author Organization [facility] Address [facility] [place] [address] Care Team Providers Care Installer Molding And Trim Name Role Phone Kirk Wyatt Segundo Primary Care Provider Frances Hills (Rn) manager file Provider Valdez Bhandari MD Primary Care Provider [phone] Dian Smith PA-C Unavailable [phone] Malinda Lopez APRN.BRIDGE BUILDER Unavailable + [phone] Source Comments In the event this information is protected by the Federal Confidentiality of Alcohol and Drug AbusePatient Records regulations: The Federal rules restrict any use of the information to criminally investigate or prosecute any alcohol or drug abuse patient.[facility] Encounter Details Date Type Department Care Team (Late st Contact Info) Description 05/27/2014 Patient Msg Medical Records [address] [place] [address] Provider, Ccf Research Invitation Social History Tobacco [...] documented as of this encounter Care Teams Installer Molding And Trim Relationship Specialty Start Date End Date Wyatt Bradley PCP - General Internal Medicine 05/21/12 12/05/17 Frances Hills (Rn), RN PCP - General 12/06/17 10/31/20 Valdez Acosta MD [address] [place] [address] PCP - General Internal Medicine 11/01/20 Dian Smith PA-C [address] [place] [address] Traffic Control Operator Internal Medicine 04/26/24 05/21/24 Malinda Lopez, SENIOR PROPERTY MANAGER.BRIDGE BUILDER [address] [place] [address] Traffic Control Operator Family Medicine 04/26/24 documented as of this encounter
--- OUTSIDE RECORDS SUMMARY | 2024-11-30 15:02 | XMS_ITS | Encounter Summary ---
Author Organization [facility] Address [address] [place] [address] Care Team Providers Care Coding Compliance Manager Name Role Phone Frances Hills (Rn) marine photographer Provider Valdez Bhandari MD Primary Care Provider [phone] Dian Smith PA-C Unavailable [phone] Malinda Lopez APRN.[facility] Unavailable + [phone] Source Comments In the event this information is protected by the Federal Confidentiality of Alcohol and Drug AbusePatient Records regulations: The Federal rules restrict any use of the information to criminally investigate or prosecute any alcohol or drug abuse patient.[facility] Encounter Details Date Type Department Care Team (Late st Contact Info) Description 10/19/2020 [facility] [address] [place] [address] Aylin Garrison PA-C [address] [place] [address] RE: Non-Urgent Medical Question Social History [...] Never 08/02/2020 How often do you attend anabaptist or holiness serv ices? Never 08/02/2020 Do you belong to any clubs o r organizations such as anabaptist groups, unions, fraternal or athletic groups, or [...] Answer Date Recorded PHQ-2 score 3 08/02/2020 [facility] of Occupat ional Health - Occupational Stress [...] N ot on file 04/27/2020 Data from: https://www.neighborhoodatlas.medicine.[facility].edu/. Last address used for calculation Not [...] on filedocumented in this encounter Care Teams Coding Compliance Manager Relationship Specialty Start Date End Date ReinierAugust (Rn), RN PCP - General 12/06/17 10/31/20 Valdez Acosta MD [address] [place] [address] PCP - General Internal Medicine 11/01/20 Dian Smith PA-C [address] [place] [address] Marine Electronics Repairer Internal Medicine 04/26/24 05/21/24 Malinda Lopez APRN.BOOM CRANE OPERATOR [address] [place] [address] Marine Electronics Repairer Family Medicine 04/26/24 documented as of this encounter
--- OUTSIDE RECORDS SUMMARY | 2024-11-30 15:03 | XMS_ITS | Encounter Summary ---
Author Organization [facility] Address [address] [place] [address] Care Team Providers Care Grinder Machine Setter Name Role Phone HarveyKristin yu CORONER FORENSIC TECHNICIAN Unavailable [phone] Maxim Lanza MD Primary Care Provider [phone] Encounter Details Date Type Department Care Team (Late st Contact Info) Description 09/15/2024 Abstract [facility] [address] [place] [id number] Unallocated, Noms Provider, [address] [facility] [place], [place] [id number] Social History Tobacco Use Types Packs/Day Years [...] week 06/04/2023 How often do you attend [facility] or rastafarian services? 1 to 4 times per year 06/04/2023 Do you belong to any clubs o r organizations such as amish groups, unions, fraternal or athletic groups, or [...] Recorded Patient Health Questionnaire-2 Score 6 05/18/2024 [facility] of Occupat ional Health [...] documented as of this encounter Care Teams Grinder Machine Setter Relationship Specialty Start Date End Date Maxim Lanza MD [address] [place] [address] PCP - General Family Medicine 07/15/23 Kristin Gracia NP [address] [place] [address] Primary Care Provider Family Medicine 05/20/22 documented as of this encounter
--- OUTSIDE RECORDS SUMMARY | 2024-11-30 15:03 | XMS_ITS | Clinical Summary ---
Author Organization [facility] Address [address] [place] [address] Care Team Providers Care Protective Clothing Issuer Name Role Phone HarveyberenicejesicaKristin beltran DIRECTOR OF VALUATION Unavailable [phone] Maxim Lanza MD Primary Care Provider [phone] Allergies No known active allergies Medications ocrelizumab [...] (anxiety) 90 tablet 5 Active nystatin (Mycostatin) 854137 UNIT/GM powderIndication s:Yeast dermatitis Apply topically 2 [...] in 6 weeks Encounter for subsequent juliann [facility] wellness visit (AWV) in Medicare patient 05/18/2024 [...] Encounters Date Type Department Care Team Description 11/30/2024 Abstract [facility] [address] [place] [address] Kristin Gracia, DIRECTOR OF VALUATION 11/30/2024 Abstract [facility] [address] [place] [address] Kristin Gracia, DIRECTOR OF VALUATION 11/30/2024 Abstract [facility] [address] [place] [address] Kristin Gracia, DIRECTOR OF VALUATION 11/30/2024 Orders Only [facility] [address] [place] [address] 11/30/2024 Abstract [facility] [address] [place] [address] Kristin Gracia, DIRECTOR OF VALUATION 11/30/2024 Abstract [facility] [address] [place] [address] Kristin Gracia, DIRECTOR OF VALUATION 11/27/2024 Clinisync Result Encounter [facility] External Department Unsolicited Provider, Generic External Data 11/25/2024 Orders Only [facility] [address] [place] [address] 11/24/2024 Telephone [facility] [address] [place] [address] Rio Ennis MD Other (house calls nurse) 11/07/2024 Clinisync Result Encounter [facility] External Department Unsolicited Rio Ennis MD 11/05/2024 Patient Outreach [facility] [place] [address] [place] [address] Blank Rodriguez LPN 10/28/2024 Patient Outreach [facility] [place] [address] [place] [address] Dian Guerin MA 10/23/2024 Patient Outreach [facility] [address] [place] [address] Blank Rodriguez, BREAKER OFF 10/22/2024 Patient Outreach [facility] [place] [address] [place] [address] Remy Rodriguezia, BREAKER OFF 10/20/2024 Abstract [facility] [address] [place] [address] Kristin Gracia NP 10/20/2024 Orders Only [facility] [address] [place] [address] Kristin Gracia NP 10/17/2024 Clinisync Result Encounter [facility] External Department Unsolicited Provider, Generic External Data 10/14/2024 Patient Outreach [place] [address] [place] [address] Blank Rodriguez, BREAKER OFF 10/08/2024 Abstract [facility] [address] [place] [address] Maxim Lanza MD 10/07/2024 Patient Outreach [facility] [place] [address] [place] [address] Blank Rodriguez, BREAKER OFF 09/30/2024 Patient Outreach [facility] [place] [address] [place] [address] Blank Rodriguez, BREAKER OFF 09/21/2024 Patient Outreach [facility] [place] [address] [place] [address] Blank Rodriguez, BREAKER OFF 09/21/2024 Patient Outreach [facility] [place] [address] [place] [address] Blank Rodriguez, BREAKER OFF 09/18/2024 Clinisync Result Encounter [facility] External Department Unsolicited Rio Ennis MD 09/16/2024 Patient Outreach [address] [place] [address] Blank Rodriguez, BREAKER OFF 09/15/2024 Abstract [facility] [address] [place] [address] Unallocated, Nomaaliyah Pollock MD 09/09/2024 Patient Outreach [address] [place] [address] Blank Rodriguez, BREAKER OFF 09/02/2024 Patient Outreach [address] [place] [address] Blank Rodriguez, BREAKER OFF from Last 3 Months Immunizations Immunization Administration [...] week 06/04/2023 How often do you attend [facility] or synagogue services? 1 to 4 times per year 06/04/2023 Do you belong to any clubs o r organizations such as mu-ism groups, unions, fraternal or athletic groups, or [...] Recorded Patient Health Questionnaire-2 Score 6 05/18/2024 [facility] Occupational Stress Questionnaire Answer [...] Name Priority Date/Time Associated Diagnosis Comments CT HEAD/BRAIN W & WO CONTRAST Routine 11/30/2024 9:28 AM EDT XR CHEST 1 VIEW Routine 11/30/2024 9:26 AM EDT BLOOD CULTURE 2 Routine 11/27/2024 8:24 PM EDT BLOOD CULTURE 1 Routine 11/27/2024 8:[address] ABDOMEN PELVIS WO IV CONTRAST Routine 11/25/2024 9:08 AM EDT ALL BASIC METABOLIC PANEL Routine 11/07/2024 10:09 AM EDT COMPLETE ECHOCARDIOGRAM DOBUTAMINE STRESS TEST Routine 10/20/2024 8:01 AM EDT [place] [facility] [place] [...] Relevant to Health Maintenance Results * CT HEAD/BRAIN W & WO CONTRAST (11/30/2024 9:28 AM EDT) Anatomical Region Laterality Modality Radiographic Ángela ging [facility] XR PROCEDURES Final Result * XR chest 1 view (11/30/2024 9:26 AM EDT) Anatomical Region Laterality Modality Chest Radiographic Ángela ging [facility] XR PROCEDURES Final Result * CT abdomen pelvis wo IV contrast (11/25/2024 9:08 AM EDT) Anatomical Region Laterality Modality Body, Pelvis, Abdomen Computed T omography [facility] CT PROCEDURES Final Result * (ABNORMAL) ALL [...] 0.55 - 1.02 mg/dL TBH [facility] EGFR-AF SPANISH 19(L) >=60 mL/min/1.7 3m 2 TB[facility] EGFR-NON AF SPANISH 16(L) >=60 mL/min/1.7 3m 2 [facility] BUN CREATININE RATIO 11.8 [facility] CALCIUM 8.5 8.5 - 10.1 mg/dL TB 11/07/2024 10:0 9 AM EDT 11/07/2024 11:05 AM EDT Narrative [facility] - 11/07/2024 11:27 AM EDT us Rio Ennis MD [facility] Final Result [facility] * Complete echocardiogram dobutamine stress test (10/20/2024 8:01 AM EDT) Anatomical Region Laterality Modality Ultrasound us Kristin Gracia NP CV ECHO PROCEDURES Final Result * (ABNORMAL) [place] [facility] [place] (10/17/2024 9:45 AM EDT) [facility] [facility]URE [place] [facility] [place] Urine Culture [facility] [place] Testing performed at [facility] [place]INE [place]ULTURE [place] [facility] [place] [address] [place] [address] [facility] URINE [facility]ULTURE - [facility] [place] O:PROMIR Isolated [facility] URINE CULTURE - [facility] [place] Urine Culture - FR [place] Count [facility] URINE CULTURE - [facility] [place] >100,000 CFU/ml [facility] URINE CULTURE - [facility] [place] Organism: 1.1 Antibiotic Interpretation ROSE Status [facility] URINE CULTURE - FR Amikacin S F(S) [facility] URINE CULTURE - [facility] Amoxicillin/Clavul anate S F(S) [facility] URINE CULTURE - FR Ampicillin S F(S) [facility] URINE CULTURE - FR Aztreonam S F(S) [facility] URINE CULTURE - FR Ceftazidime S F(S) [facility] URINE CULTURE - [facility] Ceftazidime/Avibac egan S F(S) [facility] URINE CULTURE - [facility] Ceftolozane/Tazoba ctam S F(S) [facility] URINE CULTURE - [facility] Ciprofloxacin S F(S) [facility] URINE CULTURE - FR Ertapenem S F(S) [facility] URINE CULTURE - [facility] Gentamicin S F(S) [facility] URINE CULTURE - FR Levofloxacin S F(S) [facility] URINE CULTURE - FR Meropenem S F(S) [facility] URINE CULTURE - FR Meropenem/Vaborbac egan S F(S) [facility] URINE CULTURE - FR Tobramycin S F(S) [facility] URINE CULTURE - FR Ampicillin/Sulbact am S F(S) [facility] URINE CULTURE - FR Cefazolin S F(S) [facility] URINE CULTURE - FR Cefepime S F(S) [facility] URINE CULTURE - FR Ceftriaxone S F(S) [facility] URINE CULTURE - FR Cefuroxime S F(S) [facility] URINE CULTURE - FR Piperacillin/Tazob actam S F(S) TB URINE CULTURE - FR Trimethoprim/Sulfa S F(S) [facility] 10/17/2024 9:45 AM EDT 10/17/2024 9:56 AM EDT [facility] - 10/19/2024 10:55 AM EDT Generic External Data Provider LAB BLOOD ORDERAB LES Final Result Performing Organization Address [facility]/ZIP Co de Phone Number [facility] * BLOOD CULTURE 2 (10/17/2024 2:55 AM EDT) Only the most recent of2 resultswithin the time period is included. BLOOD CULTURE 2 Blood Culture 2 NG5D NO GROWTH AT 5 DAYS.^NO GROWTH AT 5 DAYS. TB 10/17/2024 2:55 AM EDT 10/17/2024 3:10 AM EDT [facility] - 10/22/2024 2:43 PM EDT Generic External Data Provider LAB BLOOD ORDERAB LES Final Result Performing Organization Address [facility]/ZIP Co de Phone Number [facility] * BLOOD CULTURE 1 (10/17/2024 2:47 AM EDT) Only the most recent of2 resultswithin the time period is included. BLOOD CULTURE 1 Blood Culture 1 NG5D NO GROWTH AT 5 DAYS.^NO GROWTH AT 5 DAYS. TB 10/17/2024 2:47 AM EDT 10/17/2024 3:10 AM EDT Narrative [facility] - 10/22/2024 2:43 PM EDT us Generic External Data Provider LAB BLOOD ORDERAB LES Final Result [facility] * (ABNORMAL) ALL CBC WITH AUTO DIFF (09/18/2024 2:05 PM EDT) Pathologist [facility] WBC 12.9(H) 4.0 - 11.0 [...] us Rio Ennis MD [facility] Final Result [facility] * MM TOMOSYNTHESIS SCREENING BI (06/30/2024 11:32 AM EST) Anatomical Region Laterality Modality Other 06/30/2024 11:3 2 AM EST Narrative 06/30/2024 11:33 [place] [address] Mammography Report Signed Patient: NITHYA VASQUEZ MR#: [id number] : 1970 Acct:[id number] Age/Sex: 54 / F ADM Date: 06/30/24 Loc: MAMMO Attending Dr: Kristin Gracia NP Ordering Physician: Kristin Gracia NP Results: Date of Service: 06/30/24 Follow Up: Procedure(s): MM tomosynthesis screening BI Accession Number(s): [id number] cc: Kristin Gracia NP Patient Name: NITHYA VASQUEZ MR#: [id number] : 1970 Exam Date: 06/30/2024 Ordering Doctor: [...] throat/lung cancer at age 56. LOCATION: [facility] BREAST COMPOSITION: There are scattered areas [...] Signed By: 06/30/24 1133 DD/ 1132 TD/TT: Data Processing Equipment Repairer: Procedure Note Radiology, RadiologistMD - 06/30/2024 [place] [address] Mammography Report Signed Patient: NITHYA VASQUEZ FMR#: [id number] : 1970Acct:[id number] Age/Sex: 54 / FADM Date: 06/30/24 Loc: MAMMO Attending Dr: Kritsin Gracia NP Ordering Physician: Kristin Gracia NPResults: Date of Service: 06/30/24Follow Up: Procedure(s): MM tomosynthesis screening BI Accession Number(s): [id number] cc: Kristin Gracia NP Patient Name: NITHYA VASQUEZ MR#: [id number] : 1970 Exam Date: 06/30/2024 Ordering Doctor: [...] throat/lung cancer at age 56. LOCATION: [facility] BREAST COMPOSITION: There are scattered areas [...] M.D. Signed By:06/30/24 1133 DD/ 1132 TD/TT: Data Processing Equipment Repairer: us Kristin Gracia NP [facility]AGING Final Result from Last 3 Months or Most Recently Relevant to Health Maintenance Insurance [place] [address] Care Teams Protective Clothing Issuer Relationship Specialty Start Date End Date Maxim Lanza MD [address] [place] [id number] PCP - General Family Medicine 07/15/23 Kristin Gracia NP [address] [place] [phone] Primary Care Provider Family Medicine 05/20/22
--- OUTSIDE RECORDS SUMMARY | 2024-11-30 15:03 | XMS_ITS | Encounter Summary ---
Author Organization [facility] Address [address] [place] [address] Care Team Providers Care Rib Cutter Name Role Phone Valdez Acosta MD Primary Care Provider [phone] Dian Smith PA-C Unavailable [phone] Malinda Lopez APRN.[facility] Unavailable + [phone] Source Comments In the event this information is protected by the Federal Confidentiality of Alcohol and Drug AbusePatient Records regulations: The Federal rules restrict any use of the information to criminally investigate or prosecute any alcohol or drug abuse patient.[facility] Encounter Details Date Type Department Care Team (Late st Contact Info) Description 06/10/2023 [facility] [address] [place], [place] [id number] Aylin Garrison PA-C [address] [place] [address] Bulging disc Social History Tobacco Use [...] Never 08/02/2020 How often do you attend sikhism or jain serv ices? Never 08/02/2020 Do you belong to any clubs o r organizations such as sikhism groups, unions, fraternal or athletic groups, or [...] Answer Date Recorded PHQ-2 score 1 05/01/2023 [facility] of [facility]at ional [...] is lower risk 4 09/20/2022 Data from: https://www.neighborhoodatlas.medicine.[facility].edu/. Last address used for calculation [address] [...] RN - 06/10/2023 2:26 PM EST Called [facility] at [phone], spoke with sales representative womens health who is pushing over MRI Cervical Spine Images from 05-09-2023 to [facility] via [email or web address]. Routing to Aylin Garrison PA-C. Gabriel Victoria RN documented in this encounter Plan of Treatment Not on file documented as of this encounter Visit Diagnoses Not on filedocumented in this encounter Care Teams Rib Cutter Relationship Specialty Start Date End Date Valdez Acosta MD [address] [place] [address] PCP - General Internal Medicine 11/01/20 Dian Smith PA-C [address] [place] [address] [phone] Armament Aircraft Mechanic Internal Medicine 04/26/24 05/21/24 Malinda Lopez, MATTRESS INSPECTOR.LEAD SOFTWARE QA ENGINEER [address] [place] [address] [phone] Armament Aircraft Mechanic Family Medicine 04/26/24 documented as of this encounter
--- OUTSIDE RECORDS SUMMARY | 2024-11-30 15:03 | XMS_ITS | Encounter Summary ---
Author Organization [facility] Address [address] [place], [place] [id number] Care Team Providers Care Frame And Scrap Crusher Name Role Phone Frances Hills (Rn) refrigeration mechanic helper Provider Valdez Bhandari MD Primary Care Provider [phone] Dian Smith PA-C Unavailable [phone] Malinda Lopez APRN.[facility] Unavailable + [phone] Source Comments In the event this information is protected by the Federal Confidentiality of Alcohol and Drug AbusePatient Records regulations: The Federal rules restrict any use of the information to criminally investigate or prosecute any alcohol or drug abuse patient.[facility] Encounter Details Date Type Department Care Team (Late st Contact Info) Description 07/15/2020 Patient [facility] [address] [place], [place] [phone] Provider, Ccf Referral Social History Tobacco Use [...] N ot on file 04/27/2020 Data from: https://www.neighborhoodatlas.medicine.[facility]/. Last address used for calculation Not [...] documented as of this encounter Care Teams Frame And Scrap Crusher Relationship Specialty Start Date End Date ReinierAugust (Rn), RN PCP - General 12/06/17 10/31/20 Valdez Acosta MD [address] [place] [address] PCP - General Internal Medicine 11/01/20 Dian Smith PA-C [address] [place] [address] Supervisor Rice Milling Internal Medicine 04/26/24 05/21/24 Malinda Lopez, MAILROOM ASSOCIATE.MICROFILM CLERK [address] [place] [address] Supervisor Rice Milling Family Medicine 04/26/24 documented as of this encounter
--- OUTSIDE RECORDS SUMMARY | 2024-11-30 15:03 | XMS_ITS | Encounter Summary ---
Author Organization [facility] Address [address] [place] [address] Care Team Providers Care Strategic Planning Director Name Role Phone Kirk Wyatt Segundo Primary Care Provider Frances Hills (Rn) log driver Provider Valdez Bhandari MD Primary Care Provider [phone] Dian Smith PA-C Unavailable [phone] Malinda Lopez APRN.TAIL EDGER Unavailable + [phone] Source Comments In the event this information is protected by the Federal Confidentiality of Alcohol and Drug AbusePatient Records regulations: The Federal rules restrict any use of the information to criminally investigate or prosecute any alcohol or drug abuse patient.[facility] Reason for Visit * Reason Comments Medication Preauthorization [employer] Encounter Details Date Type Department Care Team (Late st Contact Info) Description 12/23/2015 [facility] [address] [place] [address] [place] [address] [place] [address] Medication Preauthorization ([employer]) Social History Tobacco [...] documented as of this encounter Care Teams Strategic Planning Director Relationship Specialty Start Date End Date Wyatt Bradley PCP - General Internal Medicine 05/21/12 12/05/17 Frances Hills (Rn), RN PCP - General 12/06/17 10/31/20 Valdez Acosta MD [address] [place] [address] PCP - General Internal Medicine 11/01/20 Dian Smith PA-C [facility] [place] [address] Pug Machine Operator Internal Medicine 04/26/24 05/21/24 Malinda Lopez, PAYROLL ASSISTANT.[facility] [address] [place] [address] Pug Machine Operator Family Medicine 04/26/24 documented as of this encounter
--- OUTSIDE RECORDS SUMMARY | 2024-11-30 15:03 | XMS_ITS | Encounter Summary ---
Author Organization [facility] Address [address] [place] [address] Care Team Providers Care Blade Grader Operator Name Role Phone Kristin Gracia ABRASIVE GRADER Unavailable [phone] Maxim Lanza MD Primary Care Provider Encounter Details Date Type Department Care Team (Late st Contact Info) Description 10/20/2024 Orders Only [facility] [address] [place] [address] Kristin Gracia, ABRASIVE GRADER [address] [place] [phone] Social History Tobacco Use Types Packs/Day Years [...] How often do you attend chur or yazidi services? 1 to 4 times per year [...] Recorded Patient Health Questionnaire-2 Score 6 05/18/2024 [facility] of Occupat ional Health - Occupational [...] in a care home (including now)? No 06/04/2023 Comments Unknown Sex [...] documented as of this encounter Care Teams Blade Grader Operator Relationship Specialty Start Date End Date Maxim Lanza MD [address] [place] [address] PCP - General Family Medicine 07/15/23 Kristin Gracai NP [address] [place] [address] Primary Care Provider Family Medicine 05/20/22 documented as of this encounter
--- OUTSIDE RECORDS SUMMARY | 2024-11-30 15:03 | XMS_ITS | Encounter Summary ---
Author Organization [facility] Address [facility] [place] [address] Care Team Providers Care Ui Software Developer Name Role Phone Valdez Acosta MD Primary Care Provider [phone] Dian Smith PA-C Unavailable [phone] Malinda Lopez APRN.CONING MACHINE OPERATOR Unavailable + [phone] Source Comments In the event this information is protected by the Federal Confidentiality of Alcohol and Drug AbusePatient Records regulations: The Federal rules restrict any use of the information to criminally investigate or prosecute any alcohol or drug abuse patient.[facility] Encounter Details Date Type Department Care Team (Late st Contact Info) Description 09/09/2023 Patient Msg Neurology [address] [phone] Provider, Ccf Requested EMG Appointment Social History [...] How often do you attend holiness or congregation serv ices? Never 08/02/2020 Do you belong [...] Answer Date Recorded PHQ-2 score 5 09/05/2023 [facility] of Occupat ional Health - [...] is lower risk 4 09/20/2022 Data from: https://www.neighborhoodatlas.medicine.[facility].edu/. Last address used for calculation [...] on filedocumented in this encounter Care Teams Ui Software Developer Relationship Specialty Start Date End Date Valdez Acosta MD [address] [place] [address] PCP - General Internal Medicine 11/01/20 Dian Smith PA-C [address] [place] [address] Accreditation Specialist Internal Medicine 04/26/24 05/21/24 Malinda Lopez APRN.CONING MACHINE OPERATOR [address] [place] [address] Accreditation Specialist Family Medicine 04/26/24 documented as of this encounter
--- OUTSIDE RECORDS SUMMARY | 2024-11-30 15:03 | XMS_ITS | Encounter Summary ---
Author Organization [facility] Address [id number] [place] [address] Care Team Providers Care Advertising Production Manager Name Role Phone Kristin Gracia DIRECT CARE PROVIDER-SURGICAL ONCOLOGIST Primary Care Provider Encounter Details Date Type Department Care Team (Late st Contact Info) Description 11/27/2024 Orders Only [facility] - Radiation Oncology [address] [place] [address] Bravo Gomez Social History Tobacco Use Types Packs/Day Years Used Date Smoking Tobacco: Some Days Cigarettes Smokeless Tobacco: Never Alcohol Use Standard Drinks/Week Comments Never 0 (1 standard drink = 0.6 oz pur e alcohol) [facility] Utilities Answer Date Recorded In the [...] on filedocumented in this encounter Care Teams Advertising Production Manager Relationship Specialty Start Date End Date Kristin Gracia, DIRECT CARE PROVIDER-SURGICAL ONCOLOGIST PCP - General Nurse Practitioner 08/28/24 documented as of this encounter
--- OUTSIDE RECORDS SUMMARY | 2024-11-30 15:03 | XMS_ITS | Encounter Summary ---
Author Organization [facility] Address [address] [place] [address] Care Team Providers Care Asbestos Handler Name Role Phone Valdez Acosta MD Primary Care Provider [phone] Dian Smith PA-C Unavailable [phone] Malinda Lopez APRN.[facility] Unavailable + [phone] Source Comments In the event this information is protected by the Federal Confidentiality of Alcohol and Drug AbusePatient Records regulations: The Federal rules restrict any use of the information to criminally investigate or prosecute any alcohol or drug abuse patient.[facility] Encounter Details Date Type Department Care Team (Late st Contact Info) Description 10/30/2023 [facility] [address] [place], [place] [phone] Aylin Garrison PA-C [address] [place] [address] MRI @ Upcoming appt. 12/10/23 Social [...] Never 08/02/2020 How often do you attend scientologist or church serv ices? Never 08/02/2020 Do you belong to any clubs o r organizations such as scientologist groups, unions, fraternal or athletic groups, or [...] Answer Date Recorded PHQ-2 score 5 09/05/2023 [facility] of Occupat ional Health - Occupational [...] campus.edu/. Last address used for calculation [address] [...] on filedocumented in this encounter Care Teams Asbestos Handler Relationship Specialty Start Date End Date Valdez Acosta MD [address] [place] [address] PCP - General Internal Medicine 11/01/20 Dian Smith PA-C [address] [place] [address] Cargo Worker Internal Medicine 04/26/24 05/21/24 Malinda Lopez APRN.VOCATIONAL AUTO BODY INSTRUCTOR [address] [place] [address] Cargo Worker Family Medicine 04/26/24 documented as of this encounter
--- OUTSIDE RECORDS SUMMARY | 2024-11-30 15:03 | XMS_ITS | Encounter Summary ---
Author Organization [facility] Address [address] [place] [address] Care Team Providers Care Building Rigger Name Role Phone Kristin Gracia ELECTRICAL TRANSMISSION ENGINEER Unavailable [phone] Maxim Lanza MD Primary Care Provider [phone] Maxim Lanza MD Primary Care Provider [phone] Encounter Details Date Type Department Care Team (Late st Contact Info) Description 05/09/2023 [facility] [address] [place] [phone] Kristin Gracia NP [address] [place] [address] Social History Tobacco Use Types Packs/Day Years [...] How often do you attend chur or denominational services? Never 05/01/2023 Do you belong to [...] Recorded Patient Health Questionnaire-2 Score 2 05/01/2023 [facility] - Occupational [...] in a senior living (including now)? No 05/01/2023 Comments Unknown Sex [...] documented as of this encounter Care Teams Building Rigger Relationship Specialty Start Date End Date Maxim Lanza MD [address] [place] [address] PCP - General Family Medicine 04/22/23 07/14/23 Maixm Lanza MD [address] [place] [address] PCP - General Family Medicine 07/15/23 Kristin Gracia NP [address] [place] [address] Primary Care Provider Family Medicine 05/20/22 documented as of this encounter
--- OUTSIDE RECORDS SUMMARY | 2024-11-30 15:03 | XMS_ITS | Encounter Summary ---
Author Organization [facility] Address [address] [place] [address] Care Team Providers Care Irrigation Laborer Name Role Phone Kirk Wyatt Segundo Primary Care Provider Frances Hills (Rn) enrichment director Provider Valdez Bhandari MD Primary Care Provider [phone] Dian Smith PA-C Unavailable + [phone] Malinda Lopez APRN.BAR ASSISTANT Unavailable + [phone] Source Comments In the event this information is protected by the Federal Confidentiality of Alcohol and Drug AbusePatient Records regulations: The Federal rules restrict any use of the information to criminally investigate or prosecute any alcohol or drug abuse patient.[facility] Reason for Visit * Reason Comments Medication Preauthorization tecfidera Encounter Details Date Type Department Care Team (Late st Contact Info) Description 07/13/2016 Jo [facility] [address] [address] [place] [address] [place] [address] Medication Preauthorization (tecfidera) Social History Tobacco [...] documented as of this encounter Care Teams Irrigation Laborer Relationship Specialty Start Date End Date Wyatt Bradley PCP - General Internal Medicine 05/21/12 12/05/17 Frances Hills (Rn), RN PCP - General 12/06/17 10/31/20 Valdez Acosta MD [address] [place] [address] PCP - General Internal Medicine 11/01/20 Dian Smith PA-C [facility]2 [place] [address] Drug Abuse Worker Internal Medicine 04/26/24 05/21/24 Malinda Lopez, DREDGING INSPECTOR.[facility] [address] [place] [address] Drug Abuse Worker Family Medicine 04/26/24 documented as of this encounter
--- OUTSIDE RECORDS SUMMARY | 2024-11-30 15:03 | XMS_ITS | Encounter Summary ---
Author Organization [facility] Address [address] [place] [address] Care Team Providers Care Physics Instructor Name Role Phone HarveyberenicejesicaKristin beltran WAITER/WAITRESS ROOM SERVICE Unavailable [phone] Maxim Lanza MD Primary Care Provider [phone] Reason for Visit * Reason Onset Date Comments Other 11/24/2024 assisted living care manager Encounter Details Date Type Department Care Team (Late st Contact Info) Description 11/24/2024 Telephone [facility] 112 [facility] 110 [place] [address] Rio Ennis MD 112 [facility] 110 [place] [address] Other (assisted living care manager) Social History Tobacco Use Types Packs/Day Years [...] How often do you attend chur or adventism services? 1 to 4 times [...] Recorded Patient Health Questionnaire-2 Score 6 05/18/2024 [facility]at ional [facility] - [...] [place] [facility] [place] (including now)? No 06/04/2023 Comments Unknown Sex [...] Yamilka Yates is a 54 y.o. female. [facility] called requesting a call back from the receptionist provider regarding this pt. She came into the ER from [facility] per the pt request due to hematuria, pain, and issues with the alexis cath. Call back number is [phone] . documented in this encounter Plan of Treatment Not on file documented as of this encounter Visit Diagnoses Not on filedocumented in this encounter Additional Health Concerns Assessment Noted Time PHQ-9 Depression Total Score: 18 024 9:00 AM EST documented as of this encounter Care Teams Physics Instructor Relationship Specialty Start Date End Date Maxim Lanza MD [address] [place] [address] PCP - General Family Medicine 07/15/23 Kristin Gracia NP [address] [place] [address] Primary Care Provider Family Medicine 05/20/22 documented as of this encounter
--- OUTSIDE RECORDS SUMMARY | 2024-11-30 15:03 | XMS_ITS | Encounter Summary ---
Author Organization [facility] Address [address] [place] [address] Care Team Providers Care Manager Adobe Name Role Phone Kristin Gracia RESIDENT CARE PROVIDER Unavailable [phone] Maxim Lanza MD Primary Care Provider Encounter Details Date Type Department Care Team (Late st Contact Info) Description 10/20/2024 Abstract [facility] [address] [place] [address] Kristin Gracia NP [address] [place] [phone] Social History Tobacco Use Types Packs/Day Years [...] How often do you attend chur or sikh services? 1 to 4 times per year 06/04/2023 Do you belong to any clubs o r organizations such as pentecostal groups, unions, fraternal or athletic groups, or [...] Recorded Patient Health Questionnaire-2 Score 6 05/18/2024 [facility] Occupat ional Health - Occupational [...] slept in a assisted (including now)? No 06/04/2023 Comments Unknown Sex [...] documented as of this encounter Care Teams Manager Adobe Relationship Specialty Start Date End Date Maxim Lanza MD [address] [place] [address] PCP - General Family Medicine 07/15/23 Kristin Gracia NP [address] [place] [address] Primary Care Provider Family Medicine 05/20/22 documented as of this encounter
--- OUTSIDE RECORDS SUMMARY | 2024-11-30 15:03 | XMS_ITS | Encounter Summary ---
Author Organization [facility] Address [facility] [place] [address] Care Team Providers Care Market Development Analyst Name Role Phone Kirk Wyatt Segundo Primary Care Provider Frances Hills (Rn) perforator operator Provider Valdez Bhandari MD Primary Care Provider [phone] Dian Smith PA-C Unavailable [phone] Malinda Lopez APRN.EKG/ECG TECHNICIAN Unavailable + [phone] Source Comments In the event this information is protected by the Federal Confidentiality of Alcohol and Drug AbusePatient Records regulations: The Federal rules restrict any use of the information to criminally investigate or prosecute any alcohol or drug abuse patient.[facility] Encounter Details Date Type Department Care Team (Late st Contact Info) Description 06/26/2016 Patient Msg Medical Records [address] [place] [address] Provider, Ccf labs Social History Tobacco Use [...] documented as of this encounter Care Teams Market Development Analyst Relationship Specialty Start Date End Date Wyatt Bradley PCP - General Internal Medicine 05/21/12 12/05/17 Frances Hills (Rn), RN PCP - General 12/06/17 10/31/20 Valdez Acosta MD [address] [place] [address] PCP - General Internal Medicine 11/01/20 Dian Smith PA-C [address] [place], [place] [phone] Structural Welder Internal Medicine 04/26/24 05/21/24 Malinda Lopez, CAB SUPERVISOR.[facility] [address] [place] [id number] Structural Welder Family Medicine 04/26/24 documented as of this encounter
--- OUTSIDE RECORDS SUMMARY | 2024-11-30 15:03 | XMS_ITS | Encounter Summary ---
Author Organization [facility] Address [address] [place] [address] Care Team Providers Care Supervisor Paper Products Name Role Phone Valdez Acosta MD Primary Care Provider [phone] Dian Smith PA-C Unavailable + [phone] Malinda Lopez APRN.WRIST CLOSER Unavailable + [phone] Source Comments In the event this information is protected by the Federal Confidentiality of Alcohol and Drug AbusePatient Records regulations: The Federal rules restrict any use of the information to criminally investigate or prosecute any alcohol or drug abuse patient.[facility] Encounter Details Date Type Department Care Team (Late st Contact Info) Description 11/26/2023 Patient Msg Radiology [address] [place] [address] Provider, Ccf MRI Questionnaire Social [...] How often do you attend scientology or sikhism serv ices? Never 08/02/2020 Do you belong [...] Answer Date Recorded PHQ-2 score 5 09/05/[address] [facility]at [facility] - Occupational Stress Questionnaire Answer Date [...] in a long term (including now)? No 08/02/2020 Area Deprivation Index Answer Date Chris rded National Score (1-100), lower number is lower ri sk 63 09/20/2022 State Score (1-10), lower number is lower risk 4 09/20/2022 Data from: https://www.neighborhoodatlas.medicine.[facility].edu/. Last address used for calculation [address] [...] on filedocumented in this encounter Care Teams Supervisor Paper Products Relationship Specialty Start Date End Date Valdez Acosta MD [address] [place] [address] PCP - General Internal Medicine 11/01/20 Dian Smith PA-C [address] [place] [address] [facility] Internal Medicine 04/26/24 05/21/24 Malinda Lopez APRN.WRIST CLOSER [address] [place] [address] Levee Superintendent Family Medicine 04/26/24 documented as of this encounter
--- OUTSIDE RECORDS SUMMARY | 2024-11-30 15:03 | XMS_ITS | Encounter Summary ---
Author Organization [facility] Address [facility] [place] [address] Care Team Providers Care Supervisor Steffen House Name Role Phone Valdez Acosta MD Primary Care Provider [phone] Dian Smith PA-C Unavailable + [phone] Malinda Lopez APRN.MANAGER TRANSFER Unavailable + [phone] Source Comments In the event this information is protected by the Federal Confidentiality of Alcohol and Drug AbusePatient Records regulations: The Federal rules restrict any use of the information to criminally investigate or prosecute any alcohol or drug abuse patient.[facility] Encounter Details Date Type Department Care Team (Late st Contact Info) Description 07/05/2023 Patient Msg Neurology [address] [place] [phone] Provider, Ccf Please Call [email or web address] Social History Tobacco Use Types Packs/Day Years [...] How often do you attend druze or tenriism serv ices? Never 08/02/2020 Do you belong [...] Answer Date Recorded PHQ-2 score 1 05/01/2023 [facility] - [facility]ational Stress Questionnaire Answer [...] is lower risk 4 09/20/2022 Data from: https://www.neighborhoodatlas.medicine.[facility].edu/. Last address used for calculation [address] [...] filedocumented in this encounter Care Teams Supervisor Steffen House Relationship Specialty Start Date End Date Valdez Acosta MD [address] [place] [address] PCP - General Internal Medicine 11/01/20 Dian Smith PA-C [facility]2 [place] [address] Computer Consultant Internal Medicine 04/26/24 05/21/24 Malinda Lopez APRN.MANAGER TRANSFER [address] [place] [address] Computer Consultant Family Medicine 04/26/24 documented as of this encounter
--- OUTSIDE RECORDS SUMMARY | 2024-11-30 15:03 | XMS_ITS | Encounter Summary ---
Author Organization [facility] Address [address] [place] [address] Care Team Providers Care Project Product Manager Name Role Phone Kristin Gracia LOG DECK TENDER Unavailable [phone] Maxim Lanza MD Primary Care Provider Encounter Details Date Type Department Care Team (Late st Contact Info) Description 10/08/2024 Abstract [facility] [address] [place] [address] Maxim Lanza MD [address] [place] [address] Social History Tobacco Use Types Packs/Day Years [...] How often do you attend chur or jehovah's witness services? 1 to 4 times per year [...] Recorded Patient Health Questionnaire-2 Score 6 05/18/2024 [facility] Occupat ional Health - [...] slept in a half-way (including now)? No 06/04/2023 Comments Unknown Sex [...] documented as of this encounter Care Teams Project Product Manager Relationship Specialty Start Date End Date Maxim Lanza MD [address] [place] [address] PCP - General Family Medicine 07/15/23 Kristin Gracia NP [address] [place] [address] Primary Care Provider Family Medicine 05/20/22 documented as of this encounter
--- OUTSIDE RECORDS SUMMARY | 2024-11-30 15:03 | XMS_ITS | Encounter Summary ---
Author Organization [facility] Address [address] [place] [address] Care Team Providers Care Dye Line Operator Name Role Phone Valdez Acosta MD Primary Care Provider [phone] Dian Smith PA-C Unavailable + [phone] Malinda Lopez APRN.[facility] Unavailable + [phone] Source Comments In the event this information [...] 02/20/2022 Patient Msg Neuropyschology [address] [place] [address] Leslie Dailey, PhD [address] [place] [address] Appointment Cancellation Request Social History Tobacco Use [...] How often do you attend holiness or scientology serv ices? Never 08/02/2020 Do you belong [...] Answer Date Recorded PHQ-2 score 5 09/15/2021 [facility] Occupat ional Health - [...] N ot on file 11/14/2021 Data from: https://www.neighborhoodatlas.medicine.[facility].edu/. Last address used for calculation [address] [...] on filedocumented in this encounter Care Teams Dye Line Operator Relationship Specialty Start Date End Date Valdez Acosta MD [address] [place] [address] PCP - General Internal Medicine 11/01/20 Dian Smith PA-C [address] [place] [address] Annual Giving Officer Internal Medicine 04/26/24 05/21/24 Malinda Lopez APRN.SOLID WASTE TECHNICIAN [address] [place] [address] Annual Giving Officer Family Medicine 04/26/24 documented as of this encounter
--- OUTSIDE RECORDS SUMMARY | 2024-11-30 15:03 | XMS_ITS | Encounter Summary ---
Author Organization [facility] Address [id number] [address] [place] [address] Care Team Providers Care Engineer Third Assistant Name Role Phone HarveybereniceKristin perry APRN-COMPLAINT ANALYST Primary Care Provider Encounter Details Date Type Department Care Team (Late st Contact Info) Description 11/30/2024 Documentation [facility] Oncology - Radiation Oncology [address] [place] [address] Nancy Hernandez, RN Social History Tobacco Use Types Packs/Day Years Used Date Smoking Tobacco: Some Days Cigarettes Smokeless Tobacco: Never Alcohol Use Standard Drinks/Week Comments Never 0 (1 standard drink = 0.6 oz pur e alcohol) [facility] Utilities Answer Date Recorded In [...] Progress Notes * Nancy Hernandez RN - 11/30/2024 12:49 PM EDT Water Control Supervisor contacts [facility] [phone] to inform that plan is ready to begin radiation treatment, as soon as tomorrow if possible It is confirmed that Temodar has been received for patient and ready to be administered per our direction Update received that patient was admitted over weekend and is currently IP at [facility], for sepsis (believed to be r/t alexis catheter/UTI) documented in this encounter Plan of Treatment [...] on filedocumented in this encounter Care Teams Engineer Third Assistant Relationship Specialty Start Date End Date Kristin Gracia, NURSE ORTHOPEDIC-COMPLAINT ANALYST PCP - General Nurse Practitioner 08/28/24 documented as of this encounter
--- OUTSIDE RECORDS SUMMARY | 2024-11-30 15:03 | XMS_ITS | Encounter Summary ---
Author Organization [facility] Address [address] [place] [address] Care Team Providers Care Junior Staff Accountant Name Role Phone HarveyberenicejesicaKristin beltran DIMENSION WAREHOUSE SUPERVISOR Unavailable [phone] Maxim Lanza MD Primary Care Provider [phone] Encounter Details Date Type Department Care Team (Late st Contact Info) Description 11/25/2024 Orders Only [facility] [address] [place] [phone] Social History Tobacco Use Types Packs/Day Years [...] often do you attend chur ch or restorationist services? 1 to 4 times per year [...] 05/18/2024 [facility] Occupat ional [facility] - Occupational Stress Questionnaire Answer Date [...] slept in a jail (including now)? No 06/04/2023 Comments Unknown Sex [...] Modality Body, Pelvis, Abdomen Computed T omography [facility] CT PROCEDURES Final Result documented in this encounter Visit Diagnoses Not on filedocumented in this encounter Additional Health Concerns Assessment Noted Time PHQ-9 Depression Total Score: 18 05/18/ 024 9:00 AM EST documented as of this encounter Care Teams Junior Staff Accountant Relationship Specialty Start Date End Date Maxim Lanza MD [address] [place] [address] PCP - General Family Medicine 07/15/23 Kristin Gracia NP [address] [place] [address] Primary Care Provider Family Medicine 05/20/22 documented as of this encounter
--- OUTSIDE RECORDS SUMMARY | 2024-11-30 15:03 | XMS_ITS | Encounter Summary ---
Author Organization [facility] Address [facility] [place] [address] Care Team Providers Care Visual Manager Name Role Phone Valdez Acosta MD Primary Care Provider [phone] Dian Smith PA-C Unavailable + [phone] Malinda Lopez APRN.SENIOR CYTOTECHNOLOGIST Unavailable + [phone] Source Comments In the event this information is protected by the Federal Confidentiality of Alcohol and Drug AbusePatient Records regulations: The Federal rules restrict any use of the information to criminally investigate or prosecute any alcohol or drug abuse patient.[facility] Encounter Details Date Type Department Care Team (Late st Contact Info) Description 05/03/2023 Patient Msg Neurology [address] [place] [phone] Provider, Ccf New Year Insurance Verification Social [...] Never 08/02/2020 How often do you attend jain or adventist serv ices? Never 08/02/2020 Do [...] Answer Date Recorded PHQ-2 score 1 05/01/2023 [facility] - Occupational Stress Questionnaire Answer [...] is lower risk 4 09/20/2022 Data from: https://www.neighborhoodatlas.medicine.[facility].edu/. Last address used for calculation [address] 09/20/2022 Education Answer Date Recorded What is [...] on filedocumented in this encounter Care Teams Visual Manager Relationship Specialty Start Date End Date Valdez Acosta MD [address] [place] [address] PCP - General Internal Medicine 11/01/20 Dian Smith PA-C [facility] [place] [address] Water Well Driller Internal Medicine 04/26/24 05/21/24 Malinda Lopez APRN.SENIOR CYTOTECHNOLOGIST [address] [place] [address] Water Well Driller Family Medicine 04/26/24 documented as of this encounter
--- OUTSIDE RECORDS SUMMARY | 2024-11-30 15:03 | XMS_ITS | Encounter Summary ---
Author Organization [facility] Address [address] [place] [address] Care Team Providers Care Treatment Counselor Name Role Phone Frances Hills (Rn) extension worker Provider Valdez Bhandari MD Primary Care Provider [phone] Dian Smith PA-C Unavailable + [phone] Malinda Lopez APRN.[facility] Unavailable + [phone] Source Comments In the event this information is protected by the Federal Confidentiality of Alcohol and Drug AbusePatient Records regulations: The Federal rules restrict any use of the information to criminally investigate or prosecute any alcohol or drug abuse patient.[facility] Encounter Details Date Type Department Care Team (Late st Contact Info) Description 03/11/2020 Patient [facility] [address] [place] [phone] Provider, [facility] Social History Tobacco Use Types [...] documented as of this encounter Care Teams Treatment Counselor Relationship Specialty Start Date End Date Reinier August (Rn), RN PCP - General 12/06/17 10/31/20 Valdez Acosta MD [address] [place] [address] PCP - General Internal Medicine 11/01/20 Dian Smith PA-C [address] [place] [address] [facility] Internal Medicine 04/26/24 05/21/24 Malinda Lopez, GOLF CART MECHANIC.[facility] [address] [place] [address] [facility] Family Medicine 04/26/24 documented as of this encounter
--- OUTSIDE RECORDS SUMMARY | 2024-11-30 15:04 | XMS_ITS | Encounter Summary ---
Author Organization [employer] Address [id number] [address] [place] [address] Care Team Providers Care Civil Structural Engineer Name Role Phone HarveybereniceKristin perry APRN-CABLE ASSEMBLER AND SWAGER Primary Care Provider Encounter Details Date Type Department Care Team (Late st Contact Info) Description 11/19/2024 Orders Only Meera Albarado [facility] - Medical Oncology [address] [place] [address] Guillermo Lundberg MD [address] [facility] [address] [place], [place] [id number] Social History Tobacco Use Types Packs/Day Years Used Date Smoking Tobacco: Some Days Cigarettes Smokeless Tobacco: Never Alcohol Use Standard Drinks/Week Comments Never 0 (1 standard drink = 0.6 oz pur e alcohol) [facility] Utilities Answer Date Recorded In the past 12 months has [employer] gas, oil, or water flikdate threatened to shut off services in your [...] on filedocumented in this encounter Care Teams Civil Structural Engineer Relationship Specialty Start Date End Date Kristin Gracia, COKE LOADER-CABLE ASSEMBLER AND SWAGER PCP - General Nurse Practitioner 08/28/24 documented as of this encounter
--- OUTSIDE RECORDS SUMMARY | 2024-11-30 15:04 | XMS_ITS | Encounter Summary ---
Author Organization [facility] Address [address] [place] [address] Care Team Providers Care Senior Tax Manager Name Role Phone Kristin Gracia SLITTER CREASER SLOTTER HELPER Unavailable [phone] Maxim Lanza MD Primary Care Provider [phone] Encounter Details Date Type Department Care Team (Late st Contact Info) Description 11/30/2024 Abstract [facility] [address] [place] [address] Kristin Gracia NP [address] [place] [phone] Social History Tobacco Use Types Packs/Day Years [...] How often do you attend chur or amish services? 1 to 4 times per year [...] Recorded Patient Health Questionnaire-2 Score 6 05/18/2024 [facility] Occupat ional Health - Occupational Stress [...] in a senior living (including now)? No 06/04/2023 Comments Unknown Sex [...] documented as of this encounter Care Teams Senior Tax Manager Relationship Specialty Start Date End Date Maxim Lanza MD [address] [place] [address] PCP - General Family Medicine 07/15/23 Kristin Gracia NP [address] [place] [address] Primary Care Provider Family Medicine 05/20/22 documented as of this encounter
--- OUTSIDE RECORDS SUMMARY | 2024-11-30 15:04 | XMS_ITS | Encounter Summary ---
Author Organization [facility] Address [address] [place] [address] Care Team Providers Care Reagent Tender Name Role Phone Basil Kristin [employer] Unavailable [phone] Maxim Lanza MD Primary Care Provider [phone] Encounter Details Date Type Department Care Team (Late st Contact Info) Description 11/27/2024 Clinisync Result Encounter [facility] External Department Unsolicited Provider, Generic External Data Social History Tobacco Use Types Packs/Day Years [...] How often do you attend chur or restorationist services? 1 to 4 times [...] Questionnaire-2 Score 6 05/18/2024 [facility] Stress Questionnaire Answer Date [...] as of this encounter Plan of Treatment Pending Results Name Type Priority Associated Diagnoses Date /Time BLOOD CULTURE 1 Lab Routine 5 8:15 PM EDT BLOOD CULTURE 2 Lab Routine 5 8:24 PM EDT documented as of this encounter Procedures Procedure Name Priority Date/Time Associated Diagnosis Comments BLOOD CULTURE 2 Routine 11/27/2024 8:24 PM EDT BLOOD CULTURE 1 Routine 11/27/2024 8:15 PM EDT documented in this encounter Visit Diagnoses Not on filedocumented in this encounter Additional Health Concerns Assessment Noted Time PHQ-9 Depression Total Score: 18 024 9:00 AM EST documented as of this encounter Care Teams Reagent Tender Relationship Specialty Start Date End Date Maxim Lanza MD [address] [place] [phone] PCP - General Family Medicine 07/15/23 Kristin Gracia NP [address] [place] [address] Primary Care Provider Family Medicine 05/20/22 documented as of this encounter
--- OUTSIDE RECORDS SUMMARY | 2024-11-30 15:04 | XMS_ITS | Encounter Summary ---
Author Organization [facility] Address [address] [place] [address] Care Team Providers Care Tankroom Worker Name Role Phone KatrinaDinah lybony Ho Primary Care Provider [phone] Pcp, Fartun MONUMENT INSTALLER Primary Care Provider [facility] Wyatt Costa Primary Care Provider Frances Hills (Rn) fish peddler Provider Valdez Bhandari MD Primary Care Provider [phone] Dian Smith PA-C Unavailable [phone] Malinda Lopez APRN.[facility] Unavailable [phone] Source Comments In the event this information is protected by the Federal Confidentiality of Alcohol and Drug AbusePatient Records regulations: The Federal rules restrict any use of the information to criminally investigate or prosecute any alcohol or drug abuse patient.[facility] Encounter Details Date Type Department Care Team (Late st Contact Info) Description 08/13/2005 Abstract General Surgery [address] [id number] Tari Chavira MD [address] [id number] Social History Tobacco Use Types Packs/Day Years [...] old female submitted a completed questionnaire to [facility] for consideration of weight [...] months with weight loss of 16 #. [facility] in 2000 over 07 months with weight loss of 17.#. Chaav Russell in 1996 over 09 months with [...] No hospitalizations. 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 Caffeine History: [...] Heart Father Cancer Father Thyroid Maternal Grandmother RUNNER OUT HISTORY Date of last image editor exam? 08/2001;performed by Dr. Gauthier; whose phone # is [phone] Did you have aPAP test at the [...] Patient was referred to this program by [facility] Primary Care Physician Yahaira Sam Ma documented in this encounter Plan of Treatment Not on file documented as of this encounter Visit Diagnoses Not on filedocumented in this encounter Additional Health Concerns Infection Onset Date Last Indicated Resolved Time COVID-19 Rule-Out 08/06/2020 08/05/2020 08/26/2020 8:53 PM EDT documented as of this encounter Care Teams Tankroom Worker Relationship Specialty Start Date End Date KatrinaDinah lybony Ho [address] [place] [phone] PCP - General 05/23/04 11/15/11 Fartun Conti MONUMENT INSTALLER PCP - General 11/16/11 05/20/12 Wyatt Bradley PCP - General Internal Medicine 05/21/12 12/05/17 Frances Hills (Rn), RN PCP - General 12/06/17 10/31/20 Valdez Acosta MD [address] [place] [address] PCP - General Internal Medicine 11/01/20 Dina Smith PA-C [address] [place] [address] [phone] Sample Case Porter Internal Medicine 04/26/24 05/21/24 Malinda Lopez, MONUMENT INSTALLER.CONTINUOUS DRYOUT OPERATOR HELPER [address] [place] [address] [phone] Sample Case [facility] Family [facility] 04/26/24 documented as of this encounter
--- OUTSIDE RECORDS SUMMARY | 2024-11-30 15:04 | XMS_ITS | Encounter Summary ---
Author Organization [facility] Address [address] [place] [address] Care Team Providers Care Test Borer Helper Name Role Phone Kristin Gracia PICKER Unavailable [phone] Maxim Lanza MD Primary Care Provider Encounter Details Date Type Department Care Team (Late st Contact Info) Description 11/30/2024 Abstract [facility] [address] [place] [address] Kristin Gracia NP [address] [place] [phone] Social History Tobacco Use Types Packs/Day Years [...] Recorded Patient Health Questionnaire-2 Score 6 05/18/2024 [facility] - Occupational [...] in a nursing home (including now)? No 06/04/2023 Comments Unknown [...] documented as of this encounter Care Teams Test Borer Helper Relationship Specialty Start Date End Date Maxim Lanza MD [address] [place] [phone] PCP - General Family Medicine 07/15/23 Kristin Gracia NP [address] [place] [address] Primary Care Provider Family Medicine 05/20/22 documented as of this encounter
--- OUTSIDE RECORDS SUMMARY | 2024-11-30 15:04 | XMS_ITS | Encounter Summary ---
Author Organization [employer] tem Address [id number] [address] [place] [address] Care Team Providers Care Wholesale Diamond Broker Name Role Phone HarveycaitierubyKristin Tevin ANSARI-SUPERVISOR OF INSTRUCTION Primary Care Provider Encounter Details Date Type Department Care Team (Late st Contact Info) Description 11/19/2024 Orders Only Meera Albarado [facility] - Medical Oncology [address] [place] [address] Guillermo Lundberg MD [address] [place], [place] [phone] GBM (glioblastoma multiforme) ([facility]) (Primary Dx) Social History Tobacco Use Types Packs/Day Years Used Date Smoking Tobacco: Some Days Cigarettes Smokeless Tobacco: Never Alcohol Use Standard Drinks/Week Comments Never 0 (1 standard drink = 0.6 oz pur e alcohol) [facility] Utilities Answer Date Recorded In the past 12 months has [employer], gas, oil, or water [employer] threatened to shut off services in your [...] encounter Visit Diagnoses Diagnosis GBM (glioblastoma multiforme) ([facility])- Primary Malignant neoplasm of brain, unspecified site documented in this encounter Care Teams Wholesale Diamond Broker Relationship Specialty Start Date End Date Kristin Gracia APRN-SUPERVISOR OF INSTRUCTION PCP - General Nurse Practitioner 08/28/24 documented as of this encounter
--- OUTSIDE RECORDS SUMMARY | 2024-11-30 15:04 | XMS_ITS | Encounter Summary ---
Author Organization [facility] Address [address] [place] [address] Care Team Providers Care Dry Box Tender Name Role Phone Kristin Gracia COKE OVEN PATCHER Unavailable [phone] Maxim Lanza MD Primary Care Provider Encounter Details Date Type Department Care Team (Late st Contact Info) Description 11/30/2024 Abstract [facility] [address] [place] [address] Kristin Gracia NP [address] [place] [phone] Social History Tobacco Use Types Packs/Day Years [...] How often do you attend chur or jewish services? 1 to 4 times per year [...] documented as of this encounter Care Teams Dry Box Tender Relationship Specialty Start Date End Date Maxim Lanza MD [address] [place] [phone] PCP - General Family Medicine 07/15/23 Kristin Gracia NP [address] [place] [address] Primary Care Provider Family Medicine 05/20/22 documented as of this encounter
--- OUTSIDE RECORDS SUMMARY | 2024-11-30 15:04 | XMS_ITS | Encounter Summary ---
Author Organization [facility] Address [address] [place] [address] Care Team Providers Care Technical Support Coordinator Name Role Phone HarveyberenicejesicaKristin beltran HUMAN RESOURCE OFFICER Unavailable [phone] Maxim Lanza MD Primary Care Provider [phone] Encounter Details Date Type Department Care Team (Late st Contact Info) Description 02/28/2024 Abstract [facility] [address] [place] [phone] Quyen Garcia RN [address] [place] Social History Tobacco Use Types Packs/Day [...] often do you attend chur ch or sabianist services? 1 to 4 times per year [...] Recorded Patient Health Questionnaire-2 Score 2 12/02/2023 [facility] - Occupational Stress Questionnaire Answer Date [...] documented as of this encounter Care Teams Technical Support Coordinator Relationship Specialty Start Date End Date Maxim Lanza MD [address] [place] [address] PCP - General Family Medicine 07/15/23 Kristin Gracia NP [address] [place] [address] Primary Care Provider Family Medicine 05/20/22 documented as of this encounter
--- OUTSIDE RECORDS SUMMARY | 2024-11-30 15:04 | XMS_ITS | Encounter Summary ---
Author Organization [facility] Address [address] [place] [address] Care Team Providers Care Tactical Response Group Officer Name Role Phone Kristin Gracia EXCEL SPECIALIST Unavailable [phone] Maxim Lanza MD Primary Care Provider Encounter Details Date Type Department Care Team (Late st Contact Info) Description 11/30/2024 Abstract [facility] [address] [place] [address] Kristin Gracia NP [address] [place] [phone] Social History Tobacco Use Types Packs/Day Years [...] Recorded Patient Health Questionnaire-2 Score 6 05/18/2024 [facility] of Occupat [...] documented as of this encounter Care Teams Tactical Response Group Officer Relationship Specialty Start Date End Date Maxim Lanza MD [address] [place] [phone] PCP - General Family Medicine 07/15/23 Kristin Gracia NP [address] [place] [address] Primary Care Provider Family Medicine 05/20/22 documented as of this encounter
--- OUTSIDE RECORDS SUMMARY | 2024-11-30 15:04 | XMS_ITS ---
Author Organization [facility] Address [id number] [address] [place] [address] Care Team Providers Care Gambling Supervisor Name Role Phone HarveybereniceKristin perry EDUCATIONAL SIGN LANGUAGE INTERPRETER-RADIOLOGIC TECHNOLOGIST MAMMOGRAM Primary Care Provider Active Problems Problem Noted [...]
--- OUTSIDE RECORDS SUMMARY | 2024-11-30 15:04 | XMS_ITS | Encounter Summary ---
Author Organization [facility] [facility] Address [id number] [address] [place] [address] Care Team Providers Care Porter Used Car Lot Name Role Phone HarveyKristin yu Tevin MACHINE GROUP LEADER-EXPERIMENTAL DISPLAY BUILDER Primary Care Provider Encounter Details Date Type Department Care Team (Late st Contact Info) Description 09/19/2024 Orders Only [facility] External Film Storage [address] [place] [phone] Transcribe, Orders Support User Pain (Primary Dx) Social History Tobacco Use Types Packs/Day Years Used Date Smoking Tobacco: Some Days Cigarettes Smokeless Tobacco: Never Alcohol Use Standard Drinks/Week Comments Never 0 (1 standard drink = 0.6 oz pur e alcohol) [facility] Utilities Answer Date Recorded In the [...] pain documented in this encounter Care Teams Porter Used Car Lot Relationship Specialty Start Date End Date Kristin Gracia, MACHINE GROUP LEADER-EXPERIMENTAL DISPLAY BUILDER PCP - General Nurse Practitioner 08/28/24 documented as of this encounter
--- OUTSIDE RECORDS SUMMARY | 2024-11-30 15:04 | XMS_ITS | Encounter Summary ---
Author Organization [facility] Address [address] [place] [address] Care Team Providers Care Mobile Battery Technician Name Role Phone HarveyberenicejesicaKristin beltran CLERICAL ASSISTANT Unavailable [phone] Maxim Lanza MD Primary Care Provider [phone] Encounter Details Date Type Department Care Team (Late st Contact Info) Description 11/30/2024 Orders Only [facility] [address] [place] [phone] Social History Tobacco Use Types Packs/Day Years [...] often do you attend chur ch or tenriism services? 1 to 4 times per year [...] [facility]at ional [facility] - Occupational Stress Questionnaire Answer [...] slept in a [facility] (including now)? No 06/04/2023 Comments Unknown Sex [...] 1 VIEW Routine 11/30/2024 9:26 AM EDT documented in this encounter Results * CT HEAD/BRAIN W & WO CONTRAST (11/30/2024 9:28 AM EDT) Anatomical Region Laterality Modality Radiographic Ángela ging [facility] IMG XR PROCEDURES Final Result * XR chest 1 view (11/30/2024 9:26 AM EDT) Anatomical Region Laterality Modality Chest Radiographic Ángela ging [facility] IMG XR PROCEDURES Final Result documented in this encounter Visit Diagnoses Not on filedocumented in this encounter Additional Health Concerns Assessment Noted Time PHQ-9 Depression Total Score: 18 12/2 024 9:00 AM EST documented as of this encounter Care Teams Mobile Battery Technician Relationship Specialty Start Date End Date Maxim Lanza MD [address] [place] [address] PCP - General Family Medicine 07/15/23 Kristin Gracia NP [address] [place] [address] Primary Care Provider Family Medicine 05/20/22 documented as of this encounter
--- OUTSIDE RECORDS SUMMARY | 2024-11-30 15:04 | XMS_ITS | Encounter Summary ---
Author Organization [employer] tem Address [id number] [address] [place] [address] Care Team Providers Care Websphere Consultant Name Role Phone Harveyberenicevicky Kristin Tevin ANSARI-FERMENTER [place] Primary Care Provider Encounter Details Date Type Department Care Team (Late st Contact Info) Description 11/24/2024 Documentation Meera Albarado [facility] - Medical Oncology [address] [place] [address] Priyanka Velez, RN Social History Tobacco Use Types Packs/Day Years Used Date Smoking Tobacco: Some Days Cigarettes Smokeless Tobacco: Never Alcohol Use Standard Drinks/Week Comments Never 0 (1 standard drink = 0.6 oz pur e alcohol) [facility] Utilities Answer Date Recorded In [...] Received a call from nurse Jessica at [facility]. She has informed our office that [...] on filedocumented in this encounter Care Teams Websphere Consultant Relationship Specialty Start Date End Date Kristin Gracia, HEALTH PROMOTION EDUCATOR-FERMENTER [place] PCP - General Nurse Practitioner 08/28/24 documented as of this encounter
--- OUTSIDE RECORDS SUMMARY | 2024-11-30 15:04 | XMS_ITS | Clinical Summary ---
Author Organization [employer] tem Address [id number] [address] [place] [address] Care Team Providers Care Section Maintainer Name Role Phone HarveybreenicevickyKristin Tevin CHILD WELFARE WORKER-MEDICAL RECEPTION SPECIALIST Primary Care Provider Allergies No known active [...] 180 MG chemo capsuleIndication s:GBM (glioblastoma multiforme) ([facility]) Take 1 capsule by mouth daily 42 capsule 11/14/19 25 Active ondansetron (ZOFRAN) 8 mg tablet Take 1 tablet (8 mg total) by mouth every 8 (eight) hours as needed for nausea or vomiting. 30 tablet 2 11/20/19 25 Active sulfamethoxazole- trimethoprim (BACTRIM DS) 800-160 mg per tabletIndications :GBM (glioblastoma multiforme) ([facility]) Take 1 tab daily, on [...] Date Type Department Care Team Description 11/30/2024 Documentation [facility] Oncology - Radiation Oncology [address] [place] [phone] Nancy Hernandez RN 11/27/[address] [facility] Division of - Radiation Oncology [address] [place] [address] Bravo Gomez 11/25/2024 7:15 AM EDT Hospital Encounter [facility] Oncology - Radiation Oncology [address] [place] [phone] 11/24/2024 Documentation Meera Albarado [place] [facility] - Medical Oncology [address] [place] [phone] Priyanka Velez RN 11/19/2024 Orders Only Meera Alves [facility] - Medical Oncology [address] [place] [phone] Guillermo Lundberg MD GBM (glioblastoma multiforme) ([facility]) (Primary Dx) 11/19/2024 Orders Only Meera Alves [facility] - Medical Oncology [address] [place] [phone] Guillermo Lundberg MD 11/19/2024 Orders Only Meera Alves [facility] - Medical Oncology [address] [place] [phone] She Drew MOE 11/19/2024 Orders Only Meera Alves [facility] - Medical Oncology [address] [place] [phone] She Drew, MOE GBM (glioblastoma multiforme) ([facility]) (Primary Dx) 11/13/2024 12:08 PM EDT - 11/13/2024 11:59 PM EDT Hospital Encounter [facility] Oncology - Radiation Oncology [address] [place] [phone] Discharge Disposition: Still a Patient 11/13/2024 11:03 AM EDT - 11/13/2024 12:07 PM EDT Hospital Encounter [facility] Oncology - Radiation Oncology [address] [place] [phone] Glioblastoma ([facility]) (Primary Dx); GBM (glioblastoma multiforme) ([facility]) Discharge Disposition: Still a Patient 11/13/2024 11:03 AM EDT - 11/13/2024 12:07 PM EDT Hospital Encounter [facility] Oncology - Radiation Oncology [address] [place] [phone] GBM (glioblastoma multiforme) ([facility]) Discharge Disposition: Home 11/13/2024 9:48 AM EDT - 11/13/2024 11:02 AM EDT Hospital Encounter [facility] - MRI Imaging [address] [place] [address] Grey Yo MD Glioblastoma ([facility]) Discharge Disposition: Home 11/13/2024 Orders Only Meera Alves [facility] - Medical Oncology [address] [place] [phone] Guillermo Lundberg MD GBM (glioblastoma multiforme) ([facility]) (Primary Dx) 11/13/2024 Documentation Meera Alves [facility] - Medical Oncology [address] [place] [phone] Nancy Hernandez RN 11/13/2024 Telephone [facility] Oncology - Radiation Oncology [address] [place] [phone] Guillerom Lundberg MD 11/12/2024 11:00 AM EDT Office Visit Meera L Long [facility] - Medical Oncology [address] [place] [phone] Guillermo Lundberg MD GBM (glioblastoma multiforme) (CMS-HCC) (Primary Dx) 11/12/2024 10:41 AM EDT - 11/12/2024 11:59 PM EDT Hospital Encounter [facility] Oncology - Radiation Oncology [address] [place] [phone] GBM (glioblastoma multiforme) ([facility]) (Primary Dx); Brain tumor ([facility]); Double vision Discharge Disposition: Still a Patient 11/12/2024 Documentation [facility] Oncology - Radiation Oncology [address] [place] [phone] Nnacy Hernandez, MOE 11/12/2024 Documentation Meera Verena Alves [facility] - Medical Oncology [address] [place] [phone] She Drew, MOE 11/12/2024 Documentation [facility] Oncology - Radiation Oncology [address] [place] [phone] Nancy Hernandez, MOE 11/12/2024 Orders Only [facility] Oncology - Radiation Oncology [address] [place] [phone] Nancy Hernandez, MOE Glioblastoma ([facility]) (Primary Dx) 11/11/[address] [facility] Division of - Radiation Oncology [address] [place] [address] Leyla Gusman Received referral Radiation consult lvm 11/11/2024 Telephone [facility] Physicians NeuroSurgery [address] [place] [address] Anya Soni, senior grants officer note 11/11/2024 Telephone [facility] Hematology Oncology, A Department of [facility] [address] [place] [address] Ellie Coleman, [facility] 11/11/2024 Telephone [facility] On[facility], A Department of [facility] [address] [place] [address] Ellie Coleman, [facility] 11/10/2024 1:10 PM EDT Office Visit [facility] [address] [place] [phone] Andressa Garcia, CHILD WELFARE WORKER-MEDICAL RECEPTION SPECIALIST Brain tumor ([facility]) (Primary Dx); Double vision 11/10/2024 Travel 09/29/2024 Telephone [facility] [address] [place] [phone] Anya Soni RN incision 09/26/2024 Travel 09/23/2024 2:05 PM EDT - 09/23/2024 5:50 PM EDT Surgery [facility] Surgery [address] [place] [phone] Juni Espinal MD SYNAPTIVE CRANIOTOMY EXCISION TUMOR 09/23/2024 1:17 PM EDT Anesthesia Event [address] [phone] Stan Hedrick MD Leopardi, Isabella [facility] 09/19/2024 Orders Only [facility] [address] [place] [phone] Transcribe, Orders Support User Pain (Primary Dx) 09/19/2024 Travel 09/18/2024 11:59 PM EDT - 09/29/2024 12:15 AM EDT Hospital Encounter [facility] - GEN [address] [place] [phone] Lewis Botello DO Saleh, Murad H, MD Darr, MD Javy Martinez Venu Gopala R, MD Pillai, Kanchan M, MD Reinard, Kevin A, MD Pothireddy, Dean P, MD Altered mental status, unspecified altered mental status type (Primary Dx); BRANDON (acute kidney injury); Brain mass; S/P craniotomy Discharge Disposition: [facility] Facility-Medicare Cert 09/18/2024 8:00 PM EDT Ancillary Procedure [facility] [address] [place] [phone] Pain 09/18/2024 6:35 PM EDT Ancillary Procedure [facility] [address] [place] [phone] Pain 09/16/2024 1:20 PM EDT Office Visit [facility] - Wound Care Clinic [address] [place] [address] Margot Barnes P, CHILD WELFARE WORKER-MEDICAL RECEPTION SPECIALIST Dermatitis associated with moisture (Primary Dx); Pressure injury of left buttock, stage 2 ([facility]) 09/16/2024 Travel 09/01/2024 Travel 08/28/2024 10:22 AM EDT - 09/01/2024 4:45 PM EDT Hospital Encounter [facility] - Acute Care [address] [place] [address] Marielle Alexandra MD Asif, MD Elissa Power, Giselle Johnson MD Non-traumatic rhabdomyolysis (Primary Dx); Weakness Discharge Disposition: [facility] Facility-Medicare Cert from Last 3 Months Immunizations Immunization Administration [...] 2) 1987 Pap Smear 1989 COVID-19 Vaccine (4 - 2023-2 5 season) 2024 05/29/2022, 05/18/2021, 07/28/2020 Influenza [...] this time Medical Devices Implanted Type Area Terminal Make Up Operator Device Identifier Shelf Expiration Date Model / Serial / Lot Patch Dura 3x3in Thk3.5mm Crnmxf Drmtrx-Onlay + Npor Rgnrt Rpl [id number] - [id number] Implanted:Qty : 1 on 09/23/2024 by Juni Espinal MD at [facility] Graft Right: Brain JIM CRANIOMAXILLOFACIAL 06/19/2027 [id number] / / [id number] Plate Bn 12mm 2 Hl Lp Bar Tab Unv Neuro Ii Crnmxf Ti Ns 1.5 - [id number] Implanted:Qty : 2 on 09/23/2024 by Juni Espinal MD at [facility] Plate Right: Brain JIM CRANIOMAXILLOFACIAL [id number] / / Cover Bur Hl Crnfcl 10mmx.5mm Lp Tab Strl Lf Disp - [id number] Implanted:Qty : 1 on 09/23/2024 by Juni Espinal MD at [facility] Plate Right: Brain JIM CRANIOMAXILLOFACIAL [id number] / / Screw Bn 4mm 1.5mm Slf Drl Xpn Crnmxf Strl Must Order In Multiples Of 5ea - [id number] Implanted:Qty : 7 on 09/23/2024 by Juni Espinal MD at [facility] Screw Right: Brain JIM CRANIOMAXILLOFACIAL [id number] / / Procedures Procedure Name Priority Date/Time Associated Diagnosis Comments CT ONCOLOGY Routine 11/13/2024 1:13 PM EDT GBM (glioblastoma multiforme) ([facility]) MR BRAIN W WO CONT STAT 11/13/2024 10 :41 AM EDT Glioblastoma ([facility]) FL SWALLOW MOTILITY FUNCTION Routine [...] PATHOLOGY Routine 09/23/2024 3: 06 PM EDT TX ANES ART LINE Routine 09/23/2024 2:06 PM EDT TX AN ELECTIVE ENDOTRACHEAL AIRWAY Routine 09/23/2024 1:28 PM EDT SYNAPTIVE CRANIOTOMY EXCISION TUMOR 09/23/2024 1:18 PM EDT brain tumor Case Notes SYNAPTIVE-MUNIRA SONOPET Special Needs SYNAPTIVE-MUNIRA SONOPET XR CHEST 1 VW Routine 09/23/2024 [...] METABOLIC PANEL Routine 08/31/2024 5:13 AM EDT from Last 3 Months Results * CT Oncology (11/13/2024 1:13 PM EDT) Narrative SYSTEMGENERATED, DOCUMENTATION - 11/13/2024 1:13 PM EDT This order was used for Radiation Treatment planning, auto-finalized, and does not contain a result. For full report details, please reach out to your physician. Effective 10/04/2020 this image will be visible to you in [employer]. us Grey Yo MD IMG CT ORDERABLES [...] right temporal lobe mass, compatible with high-grade SYSTEM CONTROLLER glioma. There is expected post surgical distortion [...] right temporal lobe mass, compatible with high-grade SYSTEM CONTROLLER glioma. Expected postsurgical distortion is noted, as [...] complex right temporal lobemass, compatible with high-grade SYSTEM CONTROLLER glioma. There is expected postsurgical distortion of [...] complex righttemporal lobe mass, compatible with high-grade SYSTEM CONTROLLER glioma. Expectedpostsurgical distortion is noted, as above. [...] MD on 09/28/2024 3:08 PM Jesi Lewis CHILD WELFARE WORKER-MEDICAL RECEPTION SPECIALIST IMG FLUOROSCOPY ORDERAB LES Final Result * (ABNORMAL) CBC auto differential (09/28/2024 6:43 AM EDT) Only the most recent of12 resultswithin the time period is included. WBC 15.5(H) 4 - 11 x10E9/L 09/28/2024 8:17 AM EDT [facility] RBC Count 4.27 3.8 - 5.2 X10E12/L 09/28/2024 8:17 AM EDT [facility] Hemoglobin 11.5(L) 11.7 - 15.5 g/dL 09/28/2024 8:17 AM EDT [facility] Hematocrit 35.5 35 - 47 % 09/28/2024 8:17 AM EDT [facility] MCV 83 80 - 100 fL 09/28/2024 8:17 AM EDT [facility] MCH 27.0 27 - 34 pg 09/28/2024 8:17 AM EDT [facility] MCHC 32.5 32 - 36 g/dL 09/28/2024 8:17 AM EDT [facility] RDW 16.4(H) 11.5 - 15 % 09/28/2024 8:17 AM EDT [facility] Platelet Count 115(L) 150 - 450 X10E9/L 09/28/2024 8:17 AM EDT [facility] MPV 10.7 7 - 12 fL 09/28/2024 8:17 AM EDT [facility] Neutrophils % 80.2 % 09/28/2024 8:17 AM EDT [facility] Comment:This is an appended report. These results have been appended to a previously preliminary verified report. Lymphocytes % 8.3 % 09/28/2024 8:17 AM EDT [facility] Comment:This is an appended report. These results have been appended to a previously preliminary verified report. Monocytes % 11.3 % 09/28/2024 8:17 AM EDT [facility] Comment:This is an appended report. These results have been appended to a previously preliminary verified report. Eosinophils % 0.1 % 09/28/2024 8:17 AM EDT [facility] Comment:This is an appended report. These results have been appended to a previously preliminary verified report. Basophils % 0.1 % 09/28/2024 8:17 AM EDT [facility] Comment:This is an appended report. These results have been appended to a previously preliminary verified report. Neutrophils Absolute (A) 12.4(H) 1.5 - 6.6 10*3/uL 09/28/2024 8:17 AM EDT [facility] Comment:This is an appended report. These results have been appended to a previously preliminary verified report. Lymphocytes Absolute 1.3 1.0 - 3.5 10*3/uL 09/28/2024 8:17 AM T [facility] Comment:This is an appended report. These results have been appended to a previously preliminary verified report. Monocytes Absolute 1.8(H) 0.0 - 0.9 10*3/uL 09/28/2024 8:17 AM EDT [facility] Comment:This is an appended report. These results have been appended to a previously preliminary verified report. Eosinophils Absolute 0.0 0.0 - 0.4 10*3/uL 09/28/2024 8:17 AM EDT [facility] Comment:This is an appended report. These results have been appended to a previously preliminary verified report. Basophils Absolute 0.0 0.0 - 0.2 10*3/uL 09/28/2024 8:17 AM T [facility] Comment:This is an appended report. These results have been appended to a previously preliminary verified report. Differential Type AUTOMATED DIFFERENTIAL 09/28/2024 8:17 AM T [facility] Comment:This is an appended report. These results have been appended to a previously preliminary verified report. Blood 09/28/2024 6:43 AM EDT 09/28/2024 6:57 AM EDT us Sandie IBANEZ LAB BLOOD ORDERABLES Final Re sult Performing Organization Address City/[facility]/ZIP Co de Phone Number [facility] [address] [place] [address], * Phosphorus (09/28/2024 6:43 AM EDT) Only the most recent of9 resultswithin the time period is included. PHOSPHORUS 2.6 2.4 - 4.9 mg/dL 09/28/2024 7:30 AM EDT [facility] Blood 09/28/2024 6:43 AM EDT 09/28/2024 6:57 AM EDT us Sandie IBANEZ LAB BLOOD ORDERABLES Final Re sult Performing Organization Address [facility] Co de Phone Number [facility] [address] [place] [address], * Magnesium (09/28/2024 6:43 AM EDT) Only the most recent of11 resultswithin the time period is included. MAGNESIUM 1.8 1.8 - 2.6 mg/dL 09/28/2024 7:30 AM EDT [facility] Blood 09/28/2024 6:43 AM EDT 09/28/2024 6:57 AM EDT us Sandie IBANEZ LAB BLOOD ORDERABLES Final Re sult Performing Organization Address City/[facility]/ZIP Co de Phone Number [facility] [address] [place] [address], * (ABNORMAL) Ionized calcium (09/28/2024 6:43 AM EDT) Only the most recent of8 resultswithin the time period is included. IONIZED CALCIUM - ICAN 4.3(L) 4.5 - 5.3 mg/dL 09/28/2024 8:13 AM EDT [facility] Blood 09/28/2024 6:43 AM EDT 09/28/2024 7:00 AM EDT us Steffanie Lozano CHILD WELFARE WORKER-MEDICAL RECEPTION SPECIALIST LAB BLOOD ORDERABLES Fin al Result [facility] [address] [place] [address], [place] [phone] * (ABNORMAL) Basic Metabolic Panel (09/28/2024 6:43 AM EDT) Only the most recent of8 resultswithin the time period is included. SODIUM 140 134 - 146 mmol/L 09/28/2024 7:30 AM EDT [facility] POTASSIUM 4.4 3.5 - 5.0 mmol/L 09/28/2024 7:30 AM EDT [facility] CHLORIDE 106 98 - 109 mmol/L 09/28/2024 7:30 AM EDT [facility] CARBON DIOXIDE 23 22 - 32 mmol/L 09/28/2024 7:30 AM EDT [facility] ANION GAP 11 5 - 15 mmol/L 09/28/2024 7:30 AM EDT [facility] BLOOD UREA NITROGEN 26(H) 5 - 23 mg/dL 09/28/2024 7:30 AM EDT [facility] CREATININE 0.74 0.40 - 1.00 mg/dL 09/28/2024 7:30 AM EDT [facility] Comment:METHOD TRACEABLE TO IDMS STANDARD GLUCOSE 94 65 - 99 mg/dL 09/28/2024 7:30 AM EDT [facility] CALCIUM 8.8 8.5 - 10.5 mg/dL 09/28/2024 7:30 AM EDT [facility] EGFR Non-Race Dependent >90 >=60 ml/min/1.7 3sq.m 09/28/2024 7:30 AM EDT [facility] Comment: Reported eGFR is based on the CKD-EPI 2020 equation that does not use a race coefficient. Blood 09/28/2024 6:43 AM EDT 09/28/2024 6:57 AM EDT Sandie IBANEZ LAB BLOOD ORDERABLES Final Re sult [facility] [address] [place] [address], [place] [phone] * X-ray chest 1 view (09/27/2024 6:11 AM EDT) Only the most recent of3 resultswithin the time period is included. Anatomical [...] MD on 09/27/2024 6:34 AM Anjelica Venegas CHILD WELFARE WORKER-MEDICAL RECEPTION SPECIALIST IMG DIAGNOSTIC IMAG ING ORDERABLES Final Result * Ionized magnesium (09/25/2024 12:23 PM EDT) Only the most recent of3 resultswithin the time period is included. IONIZED MAGNESIUM 0.56 0.45 - 0.74 mmol/L 09/25/2024 12:56 PM EDT [facility] Blood Venous blood / Unknown 09/25/2024 12:23 PM EDT 09/25/2024 12:38 PM EDT us Juni Espinal MD LAB BLOOD ORDERABLES Final Re sult [facility] [address] [place] [address], [place] [phone] * (ABNORMAL) Comprehensive metabolic panel (09/24/2024 3:31 AM EDT) Only the most recent of4 resultswithin the time period is included. SODIUM 141 134 - 146 mmol/L 09/24/2024 4:24 AM EDT [facility] POTASSIUM 4.3 3.5 - 5.0 mmol/L 09/24/2024 4:24 AM EDT [facility] CHLORIDE 108 98 - 109 mmol/L 09/24/2024 4:24 AM EDT [facility] CARBON DIOXIDE 23 22 - 32 mmol/L 09/24/2024 4:24 AM EDT [facility] ANION GAP 10 5 - 15 mmol/L 09/24/2024 4:24 AM EDT [facility] BLOOD UREA NITROGEN 27(H) 5 - 23 mg/dL 09/24/2024 4:24 AM EDT [facility] CREATININE 1.06(H) 0.40 - 1.00 mg/dL 09/24/2024 4:24 AM EDT [facility] Comment:METHOD TRACEABLE TO IDMS STANDARD GLUCOSE 120(H) 65 - 99 mg/dL 09/24/2024 4:24 AM EDT [facility] CALCIUM 8.7 8.5 - 10.5 mg/dL 09/24/2024 4:24 AM EDT [facility] TOTAL PROTEIN 6.3 6.0 - 8.0 g/dL 09/24/2024 4:24 AM EDT [facility] ALBUMIN 3.3 3.2 - 5.3 g/dL 09/24/2024 4:24 AM EDT [facility] ALKALINE PHOSPHATASE 61 39 - 130 U/L 09/24/2024 4:24 AM EDT [facility] AST 19 <=41 U/L 09/24/2024 4:24 AM EDT [facility] ALT 33(H) <=31 U/L 09/24/2024 4:24 AM EDT [facility] BILIRUBIN,TOTAL 0.4 0.3 - 1.2 mg/dL 09/24/2024 4:24 AM EDT [facility] EGFR Non-Race Dependent 62 >=60 ml/min/1.7 3sq.m 09/24/2024 4:24 AM EDT [facility] Comment: Reported eGFR is based on the CKD-EPI 2020 equation that does not use a race coefficient. Blood Venous blood / Unknown Central Line / Unknown 09/24/2024 3:31 AM EDT 09/24/2024 3:47 AM EDT us Juni Espinal MD LAB BLOOD ORDERABLES Final Re sult [facility] [address] [place] [address], * CT brain without contrast (09/23/2024 7:19 [...] - 99 mg/dL 09/23/2024 4:51 PM EDT [facility] Blood specimen (specimen) 09/23/2024 4:49 PM EDT 09/23/2024 4:51 PM EDT us Xena Larios MD POINT OF CARE TEST ORDERABLE S Final Result [facility] [address] [place] [address], [place] * Surgical Pathology (09/23/2024 3:06 PM EDT) Case Report Surgical Pathology Report Case: [id number] Authorizing Provider: Juni Espinal MD Collected: 09/23/2024 1506 Ordering Location: [facility] Received: 09/23/2024 1621 - Surgery Pathologist: Alyssa Renteria MD Specimen: Brain, BRAIN TUMOR 10/15/2024 10:59 AM EDT [facility] Final Diagnosis Brain, tumor, resection ([id number]; 09/23/2024): Glioblastoma, 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 See comment. COMMENT: Histologic sections demonstrate a highly cellular infiltrating astrocytoma. A majority of the tumor shows fibrillary morphology, with a minor component showing giant cell morphology. The tumor harbors brisk mitotic activity, microvascular proliferation, and necrosis, supporting a histologic diagnosis of glioblastoma. By immunohistochemistry, the tumor is IDH-wildtype. ANCILLARY STUDIES: Immunohistochemical stains were performed at [facility] on block E1 (IDH1-R132H, ATRX, p53, [...] is that of Anahi Franklin M.D., Ph.D., [facility], [place], [place]. Please see the complete pathology consult (scanned on 10/09/2024). 10/15/2024 10:59 AM [facility] at 0851 EDT Addendum Results of MGMT Promoter Methylation, Tumor dated 10/14/2024 are received from [address] and are as follows: Result Summary: MGMT PROMOTER METHYLATION ABSENT Result: Provided diagnosis: brain glioblastoma, IDH-wildtype (SYSTEM CONTROLLER WHO grade 4) Tumor tissue: Negative for [...] report (scanned on 10/15/2024). 10/15/2024 10:59 AM [facility] Addendum electronically signed by ALYSSA RENTERIA MD on 10/15/2024 at 1059 EDT Gross Description Received in formalin labeled LONZ, brain tumor is a 8.5 x 4.5 x 1.6 cm aggregate of pink-pinedo, rubbery and friable soft tissue fragments. The specimen is filtered and entirely submitted in cassettes A-L. (12, ns, [id number], m8.1) MW 10/15/2024 10:59 AM [facility] Preliminary Diagnosis Brain tumor, resection: High [...] is to be performed at [facility] for a final integrated diagnosis to follow. 10/15/2024 10:59 AM EDT [facility] Preliminary result electronically signed by ALYSSA [...] WHO Grade IV 10/15/2024 10:59 AM EDT [facility] Embedded Images 10/15/2024 10:59 AM EDT [facility] Tissue Brain structure / Unknown 09/23/2024 3:06 PM EDT 09/23/2024 4:29 PM EDT Comment:Pre-op diagnosis: brain tumor us Juni Espinal MD PATHOLOGY/CYTOLOGY ORDERABLES Edited Result - Final [facility] [address] [place] [address], [place] [phone] [facility] [address] [place] [address], [place] * [place] ANES ART LINE (09/23/2024 2:06 PM EDT) Samia Britt SRNA - 09/23/2024 2:06 PM EDT ALFREDO Carr 09/23/2024 2:07 PM Art Line Performed by: ALFREDO Carr Authorized by: Stan Hedrick MD Patient Location: [place] Start Time: 09/23/2024 1:29 PM End Time: 09/23/2024 1:31 PM Service Provider: Stan Hedrick MD DUMPSTER DRIVER ( if not the service provider): BABAR [...] Well no arterial injury Stan Hedrick MD [place] ANESTHESIA Final Result * TX AN ELECTIVE ENDOTRACHEAL AIRWAY (09/23/2024 1:28 PM EDT) Samia Britt SRNA - 09/23/2024 1:28 PM EDT ALFREDO Carr 09/23/2024 2:06 PM Airway Patient location during procedure: OR Urgency: Elective Date/Time: 09/23/2024 1:28 PM Airway not difficult IV In Situ: Peripheral General Information and Staff Service Provider: Stan Hedrick MD DUMPSTER DRIVER: BABAR Li Student: ALFREDO Carr Placed by: [...] included. ABO O 09/23/2024 8:17 AM EDT [facility] RH Positive 09/23/2024 8:17 AM EDT [facility] Blood Venous blood / Unknown 09/23/2024 7:00 AM EDT 09/23/2024 7:01 AM EDT Xena Larios MD BLOOD BANK TEST ORDERABLES F inal Result [facility] [place] [address] [place] [address], [facility] [address] [place] [address], * Type and screen(includes indirect sinan) (09/22/2024 9:27 PM EDT) ABO O 09/22/2024 11:08 PM EDT [facility] RH Positive 09/22/2024 11:08 PM EDT [facility] Antibody Screen Negative 09/22/2024 11:08 PM EDT [facility] Blood Venous blood / Unknown Venipuncture / Unknown 09/22/2024 9:27 PM EDT 09/22/2024 9:27 PM EDT Laura Gore CHILD WELFARE WORKER-MEDICAL RECEPTION SPECIALIST BLOOD BANK TEST ORDERAB LES Edited Result - Final [facility] [address] [place] [address], [facility] [address] [place] [address], * Electrolyte panel (09/22/2024 9:27 PM EDT) Only the most recent of9 resultswithin the time period is included. SODIUM 142 134 - 146 mmol/L 09/22/2024 11:03 PM EDT [facility] POTASSIUM 4.5 3.5 - 5.0 mmol/L 09/22/2024 11:03 PM EDT [facility] CHLORIDE 109 98 - 109 mmol/L 09/22/2024 11:03 PM EDT [facility] CARBON DIOXIDE 22 22 - 32 mmol/L 09/22/2024 11:03 PM EDT [facility] ANION GAP 11 5 - 15 mmol/L 09/22/2024 11:03 PM EDT [facility] Blood Venous blood / Unknown Venipuncture / Unknown 09/22/2024 9:27 PM EDT 09/22/2024 9:27 PM EDT Ta Everett MD LAB BLOOD ORDERABLES Final Resul t [facility] [address] [place] [address], * Echo complete W/ contrast (09/22/2024 4:34 [...] Velocity Ratio 0.98 XCELERA Left Ventricle Mass 130.33190 [id number] g XCELERA Interventricular Septum Diastolic Thickness by [...] 10:49 AM EDT) Only the most recent of2 resultswithin the time period is included. 09/22/2024 10:4 9 AM EDT Narrative [facility] - 09/23/2024 4:18 PM EDT Anjelica Venegas CHILD WELFARE WORKER-MEDICAL RECEPTION SPECIALIST ECG ORDERABLES Fin al [facility] * Vancomycin, random (09/22/2024 6:14 AM EDT) Only the most recent of3 resultswithin the time period is included. VANCOMYCIN 16.5 5.0 - 40.0 ug/mL 09/22/2024 7:16 AM EDT [facility] Blood Venous blood / Unknown 09/22/2024 6:14 AM EDT 09/22/2024 6:14 AM EDT [facility] - 09/22/2024 7:16 AM EDT Peak 30-40 ug/mL Trough 5-20 ug/ml Anjelica Venegas CHILD WELFARE WORKER-MEDICAL RECEPTION SPECIALIST LAB BLOOD ORDERABLE S Final Result [facility] [address] [place] [address], [place] [phone] * Clinical Pathology Review (09/21/2024 3:31 PM EDT) Case Report Clinical Pathology Report Case: [id number] Authorizing Provider: Ta Everett MD Collected: 09/21/2024 1531 Ordering Location: [facility] Received: 09/21/2024 1531 - GEN 9 ICU Pathologist: Cecy Altman MD Specimen: Blood, Venous 09/23/2024 11:59 AM EDT [facility] Final Diagnosis Prominent band in beta region, recommend immunofixation for further evaluation. Hypoalbuminemia with increase in acute phase reactants. 09/23/2024 11:59 AM EDT [facility] at 1159 EDT Venous blood / Unknown 09/21/2024 3:31 PM EDT 09/21/2024 3:31 PM EDT us Ta Everett MD PATHOLOGY/CYTOLOGY ORDERABLES Fi nal Result [facility] [address] [place] [address], [place] [phone] * CT abdomen and pelvis without contrast [...] GROWTH 5 DAYS 09/26/2024 3:12 PM EDT [facility] Blood Venous blood / Unknown 09/20/2024 7:33 AM EDT 09/20/2024 7:33 AM EDT Narrative [facility] - 09/26/2024 3:12 PM EDT Suboptimal volume of blood collected, Results may be affected. Steffanie Lozano CHILD WELFARE WORKER-MEDICAL RECEPTION SPECIALIST MICROBIOLOGY - GENERAL O RDERABLES Final Result [facility] [address] [place] [address], [place] [phone] * MR brain synaptive protocol (09/20/2024 1:06 AM EDT) Anatomical Region Laterality Modality Neuro, Head, Head and Neck, Neuro Covera N/A Magnetic Resonance 09/20/2024 7:10 AM EDT Narrative 09/20/2024 7:17 AM EDT History: Right temporal lobe mass shown on brain CT COMPARISON: Brain CT from September 18 outside facility [place] PROCEDURE: Multiplanar multisequence images performed through the [...] for surgical planning. I favor a primary SYSTEM CONTROLLER neoplasm such as a glioblastoma or astrocytoma. Metastasis can also present in this fashion. Finalized by Juan Antonio Lindquist MD on 09/20/2024 7:17 AM Procedure Note Juan Antonio Lindquist MD - 09/20/2024 History: Right temporal lobe mass shown on brain CT COMPARISON: Brain CT from September 18 outside facility [place] PROCEDURE: Multiplanar multisequence images performed through the [...] above for surgical planning. I favor aprimary SYSTEM CONTROLLER neoplasm such as a glioblastoma or astrocytoma. Metastasis canalso present in this fashion. Finalized by Juan Antonio Lindquist MD on 09/20/2024 7:17 AM Chip Zarate CHILD WELFARE WORKER-MEDICAL RECEPTION SPECIALIST IMG MRI ORDERABLES [facility] al Result * Ultrasound retroperitoneal complete (09/19/2024 [...] 0.12(H) <0.05 ng/mL 09/19/2024 6:16 AM EDT [facility] Blood 09/19/2024 4:12 AM EDT 09/19/2024 5:15 AM EDT Narrative [facility] - 09/19/2024 6:16 AM EDT <0.50 ng/mL - Low risk of severe sepsis and/or septic shock. <2.00 ng/mL - Recommend retesting within 6-24 hours. >2.00 ng/mL - High risk of sepsis and/or septic shock. us Sandie IBANEZ LAB BLOOD ORDERABLES Final Re sult [facility] [address] [place] [address], [place] [phone] * Glomerular basement membrane IgG AB (09/19/2024 4:12 AM EDT) GBM IGG AB <0.2 <1.0 AI 09/21/2024 9:03 AM EDT [facility] Blood 09/19/2024 4:12 AM EDT 09/19/2024 5:15 AM EDT us Ta Everett MD LAB BLOOD ORDERABLES Final Resul t [facility] [address] [place] [address], [place] [phone] * Thyroid profile includes TSH FT4 (09/19/2024 4:12 AM EDT) FREE T4 0.86 0.61 - 1.60 ng/dL 09/19/2024 6:16 AM EDT [facility] TSH 2.80 0.49 - 4.67 uIU/mL 09/19/2024 6:16 AM EDT [facility] Blood 09/19/2024 4:12 AM EDT 09/19/2024 5:15 AM EDT Sandie IBANEZ LAB BLOOD ORDERABLES Final Re sult [facility] [address] [place] [address], * Proteinase 3 AB PR3 (09/19/2024 4:12 AM EDT) PROTEINASE 3 IGG AB <0.2 <1.0 AI 09/21/2024 9:03 AM EDT [facility] Blood 09/19/2024 4:12 AM EDT 09/19/2024 5:15 AM EDT us Ta Everett MD LAB BLOOD ORDERABLES Final Resul t [facility] [address] [place] [address], [place] [phone] * Myeloperoxidase AB (09/19/2024 4:12 AM EDT) MYELOPEROXIDASE AB <0.2 <1.0 AI 2024 9:03 AM EDT [facility] Blood 09/19/2024 4:12 AM EDT 09/19/2024 5:15 AM EDT us Ta Everett MD LAB BLOOD ORDERABLES Final Resul t [facility] [address] [place] [address], [place] [phone] * (ABNORMAL) Complement profile (C3 AND C4) (09/19/2024 4:12 AM EDT) COMPLEMENT C3 196(H) 86 - 184 mg/dL 09/19/2024 6:16 AM EDT [facility] COMPLEMENT C4 42 16 - 47 mg/dL 09/19/2024 6:16 AM EDT [facility] Blood 09/19/2024 4:12 AM EDT 09/19/2024 5:15 AM EDT us Ta Everett MD LAB BLOOD ORDERABLES Final Resul t Performing Organization Address City/[facility]/ZIP Co de Phone Number [facility] [address] [place] [address], [place] [phone] * Iron and TIBC (09/19/2024 4:12 AM EDT) IRON 56 50 - 170 ug/dL 09/19/2024 9:58 AM EDT [facility] TRANSFERRIN 221 168 - 336 mg/dL 09/19/2024 9:58 AM EDT [facility] IRON BINDING 309 250 - 425 ug/dL 09/19/2024 9:58 AM EDT [facility] IRON SATURATION 18 15 - 50 % SATURATION 09/19/2024 9:58 AM EDT [facility] Blood 09/19/2024 4:12 AM EDT 09/19/2024 5:15 AM EDT us Ta Everett MD LAB BLOOD ORDERABLES Final Resul t [facility] [address] [place] [address], [place] [phone] * COLE Screen w/ Reflex (09/19/2024 4:12 AM EDT) COLE SCREEN W/REFLEX Negative Negative 09/21/2024 9:03 AM EDT [facility] Blood 09/19/2024 4:12 AM EDT 09/19/2024 5:15 AM EDT Narrative [facility] - 09/21/2024 9:03 AM EDT Testing performed using multiplex flow immunoassay. Eleven difference antigens associated with systemic autoimmunie diseases (dsDNA, Sm, Sm/VIDEO MANAGER, VIDEO MANAGER, Chromatin, SSA, SSB, Lilian-1, Sc170, Ribo P, Centromere B) are included in this sreening tests. us Ta Everett MD LAB BLOOD ORDERABLES Final Resul t [facility] [address] [place] [address], [place] [phone] * (ABNORMAL) Protein electrophoresis, serum (09/19/2024 4:12 AM EDT) TOTAL PROTEIN 6.4 6.0 - 8.0 g/dL 09/23/2024 5:05 PM EDT [facility] ALPHA 1 GLOBULIN 0.6(H) 0.1 - 0.4 g/dL 09/23/2024 5:05 PM EDT [facility] ALPHA 2 GLOBULIN 1.2(H) 0.4 - 1.1 g/dL 09/23/2024 5:05 PM EDT [facility] BETA GLOBULIN 1.0 0.5 - 1.2 g/dL 09/23/2024 5:05 PM EDT [facility] GAMMA GLOBULIN 0.9 0.5 - 1.6 g/dL 09/23/2024 5:05 PM EDT [facility] Protein Electrophoresis Interp See Pathology Report 09/23/2024 5:05 PM EDT [facility] Albumin 2.8(L) 3.4 - 5.3 g/dL 09/23/2024 5:05 PM EDT [facility] Blood 09/19/2024 4:12 AM EDT 09/19/2024 5:15 AM EDT us Ta Everett MD LAB BLOOD ORDERABLES Final Resul t Performing Organization Address City/[facility]/ZIP Co de Phone Number [facility] [address] [place] [address], * Myoglobin, serum (09/19/2024 4:12 AM EDT) Only the most recent of4 resultswithin the time period is included. SERUM MYOGLOBIN 33.4 14.3 - 65.8 ng/mL 09/19/2024 5:56 AM EDT [facility] Blood 09/19/2024 4:12 AM EDT 09/19/2024 5:15 AM EDT us Sandie IBANEZ LAB BLOOD ORDERABLES Final Re sult Performing Organization Address City/[facility]/ZIP Co de Phone Number [facility] [address] [place] [address], [place] [phone] * Folate (09/19/2024 4:12 AM EDT) FOLIC ACID 13.1 >5.8 ng/mL 09/19/2024 10:37 AM EDT [facility] Blood 09/19/2024 4:12 AM EDT 09/19/2024 5:15 AM EDT us Ta Everett MD LAB BLOOD ORDERABLES Final Resul t [facility] [address] [place] [address], [place] [phone] * Ferritin (09/19/2024 4:12 AM EDT) FERRITIN 130 11 - 307 ng/mL 09/19/2024 10:34 AM EDT [facility] Blood 09/19/2024 4:12 AM EDT 09/19/2024 5:15 AM EDT us Ta Everett MD LAB BLOOD ORDERABLES Final Resul t [facility] [address] [place] [address], [place] [phone] * Vitamin B12 (09/19/2024 4:12 AM EDT) VITAMIN B12 517 180 - 914 pg/mL 09/19/2024 10:38 AM EDT [facility] Blood 09/19/2024 4:12 AM EDT 09/19/2024 5:15 AM EDT us Ta Everett MD LAB BLOOD ORDERABLES Final Resul t Performing Organization Address City/[facility]/ZIP Co de Phone Number [facility] [address] [place] [address], [place] [phone] * (ABNORMAL) CK Total (09/19/2024 4:12 AM EDT) Only the most recent of5 resultswithin the time period is included. CPK 18(L) 24 - 170 U/L 09/19/2024 6:16 AM EDT [facility] Blood 09/19/2024 4:12 AM EDT 09/19/2024 5:15 AM EDT Sandie IBANEZ LAB BLOOD ORDERABLES Final Re sult Performing Organization Address City/[facility]/ZIP Co de Phone Number [facility] [address] [place] [address], [place] [phone] * (ABNORMAL) Blood Gas, Arterial (09/19/2024 3:47 AM EDT) Sample type ARTERIAL 09/19/2024 3:52 AM EDT [facility] pH, Arterial 7.364 7.350 - 7.450 09/19/2024 3:52 AM EDT [facility] pCO2, Arterial 29.4(L) 35.0 - 45.0 mmHg 09/19/2024 3:52 AM EDT [facility] PO2, Arterial 78(L) 80 - 100 mmHg 09/19/2024 3:52 AM EDT [facility] Base, Deficit -8.0(L) 0.0 - 2.0 mmol/L 09/19/2024 3:52 AM EDT [facility] HCO3, Arterial 16.8(L) 22.0 - 26.0 mmol/L 09/19/2024 3:52 AM EDT [facility] %O2 Saturation, Arterial 95.0 >90.0 % 09/19/2024 3:52 AM EDT [facility] Quinten's test Pass 09/19/2024 3:52 AM EDT [facility] SPO2 78 % 09/19/2024 3:52 AM T [facility] Sample site L Rad 09/19/2024 3:52 AM EDT [facility] Source Of Oxygen Room Air 09/19/2024 3:52 AM T [facility] Arterial site (attribute) (Blood, Arterial) 09/19/2024 3:47 AM EDT 09/19/2024 3:52 AM EDT us Lewis Botello DO LAB BLOOD ORDERABLES Final Resul t [facility] [address] [place] [address], [place] * (ABNORMAL) POCT Nursing Urine Macroscopic UA (09/19/2024 1:37 AM EDT) POC Urine Specific Gamaliel 1.020 1.010, 1.015, 1.020, 1.025 09/19/2024 1:39 AM EDT [facility] POC Urine Leukocyte Esterase Negative Negative 09/19/2024 1:39 AM EDT [facility] POC Urine Nitrite Negative Negative 09/19/2024 1:39 AM EDT [facility] POC Urine pH 5.5 5.0, 6.0, 6.5, 7.0, 7.5, 8.0, 8.5, 5.5 09/19/2024 1:39 AM EDT [facility] POC Urine Protein 100 mg/dL(A) Negative 09/19/2024 1:39 AM EDT [facility] POC Urine Glucose Negative Negative 09/19/2024 1:39 AM EDT [facility] POC Urine Ketones Negative Negative 09/19/2024 1:39 AM EDT [facility] POC Urine Urobilinogen 0.2 E.U./dL 0.2 E.U./dL, 1.0 E.U./dL 09/19/2024 1:39 AM EDT [facility] POC Urine Bilirubin Negative Negative 09/19/2024 1:39 AM EDT [facility] POC Urine Blood/HGB Large(A) Negative 09/19/2024 1:39 AM EDT [facility] Urine 09/19/2024 1:37 AM EDT 09/19/2024 1:39 AM EDT us Saucedo Ali DO POINT OF CARE TEST ORDERABLES Fi nal Result [facility] [address] [place] [address], * (ABNORMAL) BLOOD CULTURE IDENTIFICATION PANEL (09/19/2024 1:23 AM EDT) Staphylococcus epidermidis PCR Detected(A) Not Detected 09/19/2024 8:31 PM EDT [facility] mecA/C gene PCR Detected (Methicilli n Resistance) (A) Not Detected 09/19/2024 8:31 PM EDT [facility] Blood Venous blood / Unknown 09/19/2024 1:23 AM EDT 09/19/2024 1:35 AM EDT us Ken Ontiveros MD MICROBIOLOGY - GENERAL ORDERABL ES Final Result Performing Organization Address City/[facility]/ZIP Co de Phone Number [facility] [address] [place] [address], [place] [phone] * Troponin I, High Sensitivity 1 Hour (09/19/2024 1:23 AM EDT) TROPONIN I, HIGH SENSITIVITY 10 <16 ng/L 09/19/2024 1:57 AM EDT [facility] Blood Venous blood / Unknown 09/19/2024 1:23 AM EDT 09/19/2024 1:27 AM EDT us Ken Ontiveros MD LAB BLOOD ORDERABLES Final Resu lt Performing Organization Address City/[facility]/ZIP Co de Phone Number [facility] [address] [place] [address], [place] * (ABNORMAL) Protein creat ratio (09/19/2024 1:23 AM EDT) URINE PROTEIN, RANDOM (MG/L) 1,350(H) <120 mg/L 09/19/2024 3:49 AM EDT [facility] URINE CREATININE,RDM 83.54 mg/dL 09/19/2024 3:49 AM EDT [facility] U/PRO/DISTRICT REPRESENTATIVE RATIO CALC 1.62(H) <=0.20 09/19/2024 3:49 AM EDT [facility] Urine 09/19/2024 1:23 AM EDT 09/19/2024 3:14 AM EDT Narrative [facility] - 09/19/2024 3:49 AM EDT Nephrotic Syndrome is associated with ratios >3.5 us Ta Everett MD URINE ORDERABLES Final Result Performing Organization Address City/[facility]/ZIP Co de Phone Number [facility] [address] [place] [address], [place] [phone] * Extra Urine (09/19/2024 1:23 AM EDT) Extra Tube Auto Resulted 09/19/2024 4:01 AM EDT [facility] Urine 09/19/2024 1:23 AM EDT 09/19/2024 3:14 AM EDT us Ken Ontiveros MD URINE ORDERABLES Final Result [facility] [address] [place] [address], [place] [phone] * Urine Creatinine,random (09/19/2024 1:23 AM EDT) URINE CREATININE,RDM 83.54 mg/dL 09/19/2024 3:49 AM EDT [facility] Urine 09/19/2024 1:23 AM EDT 09/19/2024 3:14 AM EDT us Ta Everett MD URINE ORDERABLES Final Result Performing Organization Address City/[facility]/ZIP Co de Phone Number [facility] [address] [place] [address], [place] [phone] * Sodium, urine, random (09/19/2024 1:23 AM EDT) URINE SODIUM,RANDOM 69 mmol/L 09/19/2024 3:49 AM EDT [facility] Urine 09/19/2024 1:23 AM EDT 09/19/2024 3:14 AM EDT us Ta Everett MD URINE ORDERABLES Final Result [facility] [address] [place] [address], [place] [phone] * (ABNORMAL) Urinalysis (09/19/2024 1:23 AM EDT) COLOR Colorless Yellow, Colorless 09/19/2024 7:33 AM EDT [facility] TURBIDITY Hazy(A) Clear 09/19/2024 7:33 AM EDT [facility] SPECIFIC GRAVITY 1.013 1.003 - 1.035 09/19/2024 7:33 AM EDT [facility] NITRITE Negative Negative 09/19/2024 7:33 AM EDT [facility] PH,URINE 5.5 5.0 - 8.5 09/19/2024 7:33 AM EDT [facility] LEUKOCYTE ESTERASE Small(A) Negative 09/19/2024 7:33 AM EDT [facility] PROTEIN 70 mg/dL(A) Negative 09/19/2024 7:33 AM EDT [facility] KETONES (URINE) Negative Negative 7:33 AM EDT [facility] UROBILINOGEN <1.1 eu/dL <1.1 eu/dL 09/19/2024 7:33 AM EDT [facility] BILIRUBIN (URINE) Negative Negative 09/19/2024 7:33 AM T [facility] BLOOD/HGB Moderate(A) Negative 09/19/2024 7:33 AM EDT [facility] MUCOUS Present(A) None 09/19/2024 7:33 AM EDT [facility] R.B.CELLS 17(H) 0 - 5 09/19/2024 7:33 AM EDT [facility] SQUAMOUS EPITHELIUM 1 0 - 5 09/19/2024 7:33 AM EDT [facility] W.B.CELLS 39(H) 0 - 5 09/19/2024 7:33 AM T [facility] GLUCOSE (URINE) Negative Negative 7:33 AM T [facility] Urine 09/19/2024 1:23 AM EDT 09/19/2024 3:14 AM EDT Narrative [facility] - 09/19/2024 7:33 AM EDT Urine received without preservative. Delays in transport may affect results. Interpret with caution. A clinical correlation is recommended. Ta Everett MD URINE ORDERABLES Final Result [facility] [address] [place] [address], [place] [phone] * Troponin I, High Sensitivity 0 Hour (09/19/2024 12:26 AM EDT) TROPONIN I, HIGH SENSITIVITY 11 <16 ng/L 09/19/2024 1:07 AM EDT [facility] Blood Venous blood / Unknown 09/19/2024 12:26 AM EDT 09/19/2024 12:40 AM EDT Ken Ontiveros MD LAB BLOOD ORDERABLES Final Resu lt [facility] [address] [place] [address], [place] * Lactate w/ Reflex (09/19/2024 12:26 AM EDT) LACTATE W/REFLEX 0.7 0.4 - 2.0 mmol/L 09/19/2024 1:49 AM EDT [facility] Blood Venous blood / Unknown 09/19/2024 12:26 AM EDT 09/19/2024 12:42 AM EDT Narrative [facility] - 09/19/2024 1:49 AM EDT Result did not trigger repeat Lactate, re-order if needed. us Ken Ontiveros MD LAB BLOOD ORDERABLES Final Resu lt [facility] [address] [place] [address], * APTT (09/19/2024 12:26 AM EDT) APTT 28 26 - 37 sec 09/19/2024 1:17 AM EDT [facility] Blood Venous blood / Unknown 09/19/2024 12:26 AM EDT 09/19/2024 12:39 AM EDT Ken Ontiveros MD LAB BLOOD ORDERABLES Final Resu lt [facility] [address] [place] [address], [place] [phone] * (ABNORMAL) Protime & INR (09/19/2024 12:26 AM EDT) PROTIME 14.0(H) 9.8 - 13.2 sec 09/19/2024 1:17 AM EDT [facility] INR 1.2 0.9 - 1.2 09/19/2024 1:17 AM EDT [facility] Blood Venous blood / Unknown 09/19/2024 12:26 AM EDT 09/19/2024 12:39 AM EDT Ken Ontiveros MD LAB BLOOD ORDERABLES Final Resu lt Performing Organization Address City/[facility]/ZIP Co de Phone Number [facility] [address] [place] [address], [place] [phone] * Hemoglobin A1c (09/19/2024 12:26 AM EDT) HEMOGLOBIN A1C 5.4 4.4 - 5.6 % 09/19/2024 6:15 AM EDT [facility] Comment: ADA Guidelines Result HgbA1c Normal : less than 5.7 % Prediabetes : 5.7 % to 6.4 % Diabetes : > 6.4 % Use with caution in patients with abnormal hemoglobin variants as the half-life of red blood cells and in vivo glycation rates are affected. EST. AVERAGE GLUCOSE 108 mg/dL 09/19/2024 6:15 AM EDT [facility] Blood Venous blood / Unknown 09/19/2024 12:26 AM EDT 09/19/2024 12:39 AM EDT us Sandie IBANEZ LAB BLOOD ORDERABLES Final Re sult [facility] [address] [place] [address], * Ammonia (09/19/2024 12:26 AM EDT) AMMONIA 24 18 - 72 umol/L 09/19/2024 1:48 AM EDT [facility] Blood Venous blood / Unknown 09/19/2024 12:26 AM EDT 09/19/2024 12:43 AM EDT us Ken Ontiveros MD LAB BLOOD ORDERABLES Final Resu lt Performing Organization Address City/[facility]/ZIP Co de Phone Number [facility] [address] [place] [address], * Potassium (08/31/2024 11:05 AM EDT) Potassium, Bld 4.0 3.5 - 5.0 mmol/L 08/31/2024 11:28 AM EDT [facility] 08/31/2024 11:0 5 AM EDT 08/31/2024 11:09 AM EDT Richard Guadalupe MD LAB BLOOD ORDERABLES Final Res ult [address], [place] [address] from Last 3 Months Insurance [employer] MED[employer]ARE [employer] MED[employer]ARE Advance Directives * Full Code (Latest Code Status on File) Date Activated Date Inactivated Comments 09/19/2024 4:15 AM 09/29/2024 2:25 AM * Full Code Date Activated Date Inactivated Comments 08/28/2024 2:20 PM 09/01/2024 6:45 PM Care Teams Section Maintainer Relationship Specialty Start Date End Date Kristin Gracia, CHILD WELFARE WORKER-MEDICAL RECEPTION SPECIALIST PCP - General Nurse Practitioner 08/28/24
--- OUTSIDE RECORDS SUMMARY | 2024-11-30 15:04 | XMS_ITS | Encounter Summary ---
Author Organization [facility] Address [address] [place] [address] Care Team Providers Care Sterile Processing Tech Name Role Phone Kristin Gracia HEAVY MOBILE EQUIPMENT REPAIRER Unavailable [phone] Maxim Lanza MD Primary Care Provider [phone] Encounter Details Date Type Department Care Team (Late st Contact Info) Description 11/30/2024 Abstract [facility] [address] [place] [address] Kristin Gracia NP [address] [place] [id number] Social History Tobacco Use Types Packs/Day Years [...] How often do you attend chur or roman catholic services? 1 to 4 times per year [...] Recorded Patient Health Questionnaire-2 Score 6 05/18/2024 [facility] - Occupational [...] documented as of this encounter Care Teams Sterile Processing Tech Relationship Specialty Start Date End Date Maxim Lanza MD [address] [place] [id number] PCP - General Family Medicine 07/15/23 Kristin Gracia NP [address] [place] [phone] Primary Care Provider Family Medicine 05/20/22 documented as of this encounter
--- OUTSIDE RECORDS SUMMARY | 2024-11-30 15:04 | XMS_ITS | Encounter Summary ---
Author Organization [facility] tem Address [id number] [address] [place] [address] Care Team Providers Care Blast Furnace Helper Name Role Phone HarveybereniceKristin perry ADOLESCENT COUNSELOR-STRATEGIC MANAGER Primary Care Provider Encounter Details Date Type Department Care Team ([facility] st Contact Info) Description 11/11/2024 Telephone [facility] Hematology Oncology, A Department of [facility] [address] [place] [id number] Ellie Coleman CMA Social History Tobacco Use Types Packs/Day Years Used Date Smoking Tobacco: Some Days Cigarettes Smokeless Tobacco: Never Alcohol Use Standard Drinks/Week Comments Never 0 (1 standard drink = 0.6 oz pur e alcohol) [facility] Utilities Answer Date Recorded In the [...] on filedocumented in this encounter Care Teams Blast Furnace Helper Relationship Specialty Start Date End Date Kristin Gracia, ELAN-STRATEGIC MANAGER PCP - General Nurse Practitioner 08/28/24 documented as of this encounter
--- OUTSIDE RECORDS SUMMARY | 2024-11-30 15:04 | XMS_ITS | Encounter Summary ---
Author Organization [employer] tem Address [id number] [address] [place] [address] Care Team Providers Care Object Oriented Developer Name Role Phone HarveycaitierubyKristin Tevin ANSARI-FLAT DRIER Primary Care Provider Encounter Details Date Type Department Care Team (Late st Contact Info) Description 11/13/2024 Orders Only Meera Albarado [facility] - Medical Oncology [address] [place] [address] Guillermo Lundberg MD [address] [place], [place] [id number] GBM (glioblastoma multiforme) ([facility]) (Primary Dx) Social History Tobacco Use Types Packs/Day Years Used Date Smoking Tobacco: Some Days Cigarettes Smokeless Tobacco: Never Alcohol Use Standard Drinks/Week Comments Never 0 (1 standard drink = 0.6 oz pur e alcohol) [facility] Utilities Answer Date Recorded In the past 12 months has [employer], gas, oil, or water [employer] threatened to shut off services in [...] Progress Patient-Stated? Author SNF General Yes Amparo Laams LSW Note: Evaluation of progress towards goal: SNF recommended, pt agreeable to SNF stating she is not able to care for self at home at this time documented as of this encounter Visit Diagnoses Diagnosis GBM (glioblastoma multiforme) ([facility])- Primary Malignant neoplasm of brain, unspecified site documented in this encounter Care Teams Object Oriented Developer Relationship Specialty Start Date End Date Kristin Gracia APRN-FLAT DRIER PCP - General Nurse Practitioner 08/28/24 documented as of this encounter
--- OUTSIDE RECORDS SUMMARY | 2024-11-30 15:04 | XMS_ITS | Encounter Summary ---
Author Organization [employer] tem Address [id number] [address] [place] [address] Care Team Providers Care Civil Structural Engineer Name Role Phone HarveybereniceMamta perrya Tevin ANSARI-MULTIPLE LAUNCH ROCKET SYSTEM CREWMEMBER Primary Care Provider Encounter Details Date Type Department Care Team (Late st Contact Info) Description 11/13/2024 Documentation [facility] Medical On[facility] [address] [place] [address] Nancy Hernandez, RN Social History Tobacco Use Types Packs/Day Years Used Date Smoking Tobacco: Some Days Cigarettes Smokeless Tobacco: Never Alcohol Use Standard Drinks/Week Comments Never 0 (1 standard drink = 0.6 oz pur e alcohol) [facility] Utilities Answer Date Recorded In [...] Specialty Start Date End Date Kristin Gracia, SUBWAY GUARD-MULTIPLE LAUNCH ROCKET SYSTEM CREWMEMBER PCP - General Nurse Practitioner 08/28/24 documented as of this encounter
--- OUTSIDE RECORDS SUMMARY | 2024-11-30 15:04 | XMS_ITS | Encounter Summary ---
Author Organization [employer] tem Address [id number] [address] [place] [address] Care Team Providers Care Cut And Cover Line Worker Name Role Phone Harveyberenicevicky Kristin Tevin ANSARI-PHYSICAL THERAPY AIDES TEACHER Primary Care Provider Encounter Details Date Type Department Care Team (Late st Contact Info) Description 11/19/2024 Orders Only Meera Albarado [facility] - Medical Oncology [address] [place] [address] She Drew, RN Social History Tobacco Use Types Packs/Day Years Used Date Smoking Tobacco: Some Days Cigarettes Smokeless Tobacco: Never Alcohol Use Standard Drinks/Week Comments Never 0 (1 standard drink = 0.6 oz pur e alcohol) [facility] Utilities Answer Date Recorded In the [...] on filedocumented in this encounter Care Teams Cut And Cover Line Worker Relationship Specialty Start Date End Date Kristin Gracia, FEEDLOT MANAGER-PHYSICAL THERAPY AIDES TEACHER PCP - General Nurse Practitioner 08/28/24 documented as of this encounter
--- OUTSIDE RECORDS SUMMARY | 2024-11-30 15:04 | XMS_ITS | Encounter Summary ---
Author Organization [employer] tem Address [id number] [address] [place] [address] Care Team Providers Care Fire Protection Engineering Technician Name Role Phone Harveyberenicevicky Kristin Tevin ANSARI-INTEGRATED CIRCUIT DESIGN ENGINEER Primary Care Provider Encounter Details Date Type Department Care Team (Late st Contact Info) Description 11/19/2024 Orders Only Meera Albarado [facility] - Medical Oncology [address] [place] [address] She Drew, MOE GBM (glioblastoma multiforme) ([facility]) (Primary Dx) Social History Tobacco Use Types Packs/Day Years Used Date Smoking Tobacco: Some Days Cigarettes Smokeless Tobacco: Never Alcohol Use Standard Drinks/Week Comments Never 0 (1 standard drink = 0.6 oz pur e alcohol) [facility] Utilities Answer Date Recorded In the past 12 months has e [employer], gas, oil, or water company threatened to [...] auto differential Lab Routine GBM (glioblastoma multiforme) ([facility]) weekly for 7 Occurrences starting 11/19/2024 until 11/19/2033 Comprehensive metabolic panel Lab Routine GBM (glioblastoma multiforme) ([facility]) weekly for 7 Occurrences starting 11/19/2024 [...] encounter Visit Diagnoses Diagnosis GBM (glioblastoma multiforme) ([facility])- Primary Malignant neoplasm of brain, unspecified site documented in this encounter Care Teams Fire Protection Engineering Technician Relationship Specialty Start Date End Date Kristin Gracia, INTER COM INSTALLER-INTEGRATED CIRCUIT DESIGN ENGINEER PCP - General Nurse Practitioner 08/28/24 documented as of this encounter
--- NOTE | 2024-11-30 15:11 | SWNOTE1 ---
SW sent PT note to Renuka at [facility] for precert.
[2024-11-30] MEDS: FLUCONAZOLE IN NACL,ISO-OSM 200 MG/100 ML PREMIX 100 MG IV (16:39)
[2024-11-30] MEDS: AMPICILLIN SODIUM/SULBACTAM NA 1.5 GM in 0.9 % SODIUM CHLORIDE 50 ML IV (21:14)
[2024-11-30] MEDS: FERROUS SULFATE 325 MG TABLET PO (21:14)
[2024-11-30] MEDS: LEVETIRACETAM 500 MG TABLET PO (21:14)
[2024-12-01] VITALS (56 sets, daily range): BP systolic 111–137; BP diastolic 68–88; PULSE 70–98; TEMP 36.4–37.2; O2SAT 87–100
[2024-12-01 05:31] LABS: Hematocrit 31.6 % (36.0-48.0); Hemoglobin 9.5 g/dL (12.0-16.0); Mean Corpuscular HGB Conc 30.1 g/dL (29.9-35.2); Mean Corpuscular Hemoglobin 27.3 pg (26.7-34.0); Mean Corpuscular Volume 90.8 fL (81.0-99.0); Platelet Count 221 10^3/uL (150-450); Red Blood Count 3.48 10^6/uL (4.20-5.40); White Blood Count 7.4 10^3/uL (4.0-11.0)
[2024-12-01 05:53] LABS: Alanine Aminotransferase 15 U/L (14-59); Albumin Globulin Ratio 0.5; Albumin Level 2.0 g/dL (3.4-5.0); Alkaline Phosphatase 95 U/L (46-116); Anion Gap 8.9; Aspartate Amino Transferase 22 U/L (15-37); Blood Urea Nitrogen 37.0 mg/dL (7.0-18.0); Calcium 8.9 mg/dL (8.5-10.1); Carbon Dioxide 33.7 mmol/L (21.0-32.0); Chloride 111 mmol/L (98-107); Estimated GFR (African America 44 (>=60 mL/min/1.73m^2); Estimated GFR (Non-African Ame 36 (>=60 mL/min/1.73m^2); Globulin 3.9 g/dL; Glucose 124 mg/dL (74-106); Potassium 4.6 mmol/L (3.5-5.1); Sodium 149 mmol/L (136-145); Total Protein 5.9 g/dL (6.4-8.2)
--- NOTE | 2024-12-01 08:20 | SWNOTE1 ---
SW received a message from Renuka at [facility] and pt is approved, SW to find out how long approval is good for.
[2024-12-01] MEDS: HEPARIN SODIUM (PORCINE) 5,000 UNIT/ML VIAL 5000 UNIT SUBQ (08:47)
[2024-12-01] MEDS: DEXAMETHASONE SOD PHOS 4 MG/ML VIAL 6 MG IV (08:47)
[2024-12-01] MEDS: FERROUS SULFATE 325 MG TABLET PO ×2 (08:47→20:29)
[2024-12-01] MEDS: METOPROLOL TARTRATE 25 MG TABLET PO ×2 (08:47→20:29)
[2024-12-01] MEDS: MIDODRINE HCL 5 MG TABLET PO ×2 (08:47→11:25)
[2024-12-01] MEDS: LEVETIRACETAM 500 MG TABLET PO ×2 (08:47→20:29)
[2024-12-01] MEDS: AMPICILLIN SODIUM/SULBACTAM NA 1.5 GM in 0.9 % SODIUM CHLORIDE 50 ML IV ×3 (08:48→20:29)
--- NOTE | 2024-12-01 09:40 | CM.NOTE ---
Rounds made with Dr. Oneill, awaiting micro for sensitivity on urine culture. Pt has been approved for skilled therapy at discharge ([facility]).
[2024-12-01] MEDS: INSULIN ASPART 300 UNIT/3 ML PEN SUBQ (11:25)
--- NOTE | 2024-12-01 12:16 | PM.PN ---
Progress Note: Subjective Subjective Interval history: Patient has made significant improvement of her mental status since Saturday. This morning, the patient is awake, alert, coherent. Able to answer questions and engage in simple conversation. Able to follow commands. Exam Narrative Exam Narrative: Much more awake and alert compared to Saturday. Able to hold conversation. Able to answer questions. Able to move her extremities. Symmetrical motor and tone. Able to lift upper legs against gravity but not against resistance. Chest is clear, heart is regular. Abdomen soft. Constitutional Vital Signs, click to edit/add: Last Vital Signs Temp 97.8 F 12/01/24 07:12 Pulse 98 H 12/01/24 11:44 Resp 18 12/01/24 09:30 BP 111/70 12/01/24 11:18 Pulse Ox 98 12/01/24 11:46 O2 Del Method Nasal Cannula 12/01/24 10:52 O2 Flow Rate 2 12/01/24 10:52 FiO2 4 11/30/24 20:00 Progress Note: Objective Labs Labs: Short CBC 12/01/24 Range/Units 04:55 WBC 7.4 (4.0-11.0) 10^3/uL Hgb 9.5 L (12.0-16.0) g/dL Hct 31.6 L (36.0-48.0) % Plt Count 221 (150-450) 10^3/uL BMP 12/01/24 04:55 Sodium 149 H Potassium 4.6 Chloride 111 H Carbon Dioxide 33.7 H BUN 37.0 H Creatinine 1.49 H Glucose 124 H Calcium 8.9 Liver Function 12/01/24 Range/Units 04:55 Total Bilirubin 0.3 (0.2-1.0) mg/dL AST 22 (15-37) U/L ALT 15 (14-59) U/L Alkaline Phosphatase 95 (46-116) U/L Albumin 2.0 L (3.4-5.0) g/dL Progress Note: A&P Assessment and Plan (1) Septic shock: (2) Multiple sclerosis: (3) Chronic indwelling Ayala catheter: (4) Septic encephalopathy: (5) Catheter-associated urinary tract infection: (6) BRANDON (acute kidney injury): (7) Anemia: Plan Severe sepsis with septic shock present on admission. Likely caused by CAUTI that is also present on admission. Her white count is down from 25,000 to 4.9 thousand. CRP still elevated. May lag behind Continue current antibiotic and antifungal. Cultures is growing Enterococcus faecalis. Final sensitivities pending. Antibiotic were changed to Unasyn. Additional dose of gentamicin for synergistic effect BRANDON. Likely caused by sepsis. Patient may have ATN already. Recent CAT scan of the abdomen completed 2 days prior to admission showed bilateral hydronephrosis secondary to pyelonephritis and bladder wall thickening. No obstructing stone Improvement of kidney function over the last 96 hours. No indication for dialysis at this time. Normal potassium. No metabolic acidosis Anemia. Likely chronic. Rectal exam completed in the emergency room department as per emergency room provider and reported to be negative for blood. Requested iron study, ferritin Monitor hemoglobin Septic and metabolic encephalopathy: Altered mental status, diminished responsiveness and weakness Significant resolution of acute encephalopathy over the last 16 hours. Patient is awake, alert and coherent. Able to engage. CT head does not show any acute intracranial process but positive for evidence of recent craniotomy and tumor resection. Prolactin level is normal Keppra level is pending Functional impairment and disability Could be related to metabolic and septic encephalopathy Unknown baseline but reported history of MS and brain tumor resection. Will need to verify her baseline functional status prior to this acute illness. History of brain cancer s/p resection. Completed in September according to her son in [place]. Continue Keppra for seizure prophylactic measures. Chronic medical conditions not listed above, incidental findings seen on labs and imaging. These would need to be addressed. Could be addressed when time and condition are appropriate. Could be addressed in the outpatient setting by PCP collaboration with other needed outpatient providers. Acute functional impairment on a chronic functional disability secondary to MS and brain tumor resection. Patient qualifies for skilled care followed by long-term [facility] [place] [facility] I discussed her case with case management. This will be arranged Status at the nursing facility DNR CCA. I had to meet her son South in person yesterday for the first time. I gave him update on her condition, status and treatment plan. South stated that he has information for the neurosurgeon in [place] and planning to arrange for patient to follow-up with him to have a conversation related to brain cancer treatment Urinary Catheter Management Urinary Catheter Management Urethral: Cath placed during this visit: yes, but has since been removed by the nurse Insertion date: 11/28/24 Insertion time: 10:10 Removal date: 11/28/24 Removal time: 10:00
--- NOTE | 2024-12-01 12:36 | REH.PTDLY ---
Physical Therapy Daily Note PT Daily Note/Assess Start: 12/01/24 12:22 Freq: Status: Active Protocol: Document 12/01/24 09:55 KSTEINLE (Rec: 12/01/24 12:36 KSTEINLE No Response) Physical Therapy Daily Note/Assessment Time In 09:27 Time Out 09:59 Subjective Pt just got done eating breakfast, agreeable to therapy . Pt wearing O2. Therapeutic Exercise 5 Minutes (minutes) Therapeutic Exercise 0 Units Therapeutic Exercise Instructed in supine B LE AP, QS 10x ea. Pt unable to Treatment perform SLR without assistance. Seated B LE exs 10x ea including HR, LAQ, marching, hip abd, and hip add. Pt needs more verbal cues with hip abd. Therapeutic Activity 10 Minutes (minutes) Therapeutic Activity 1 Units Therapeutic Activity Pt has soiled bed. Mod A with rolling onto side and Comments cues to grab onto bed rail to maintain position. Supine to sit transfer Mod A. With bed slightly elevated sit to stand transfer Min A x2. Stand pivot transfer from bed to chair with pt taking small steps CGA x2. Cues to reach back for chair upon sitting. Total Therapy 15 Minutes Total Physical 1 Therapy Units Daily Note Summary Pt is SOB and fatigues during rx, cues and assistance to place O2 back on throughout rx as pt keeps taking it off. Pt fatigues easily with gait and transfers. Pt will need to return to care home at [place] as she is unable to care for herself.
[2024-12-01 14:14] LABS: C. Difficile PCR NEGATIVE
[2024-12-01] MEDS: FLUCONAZOLE IN NACL,ISO-OSM 200 MG/100 ML PREMIX 100 MG IV (16:24)
[2024-12-01] MEDS: MIDODRINE HCL 5 MG TABLET 2.5 MG PO (16:54)
[2024-12-01] MEDS: ENOXAPARIN SODIUM 30 MG/0.3 ML SYRINGE SUBQ (20:30)
[2024-12-02] VITALS (13 sets, daily range): BP systolic 117–144; BP diastolic 83–95; PULSE 68–81; TEMP 36.4–36.9; O2SAT 95–100
[2024-12-02] MEDS: AMPICILLIN SODIUM/SULBACTAM NA 1.5 GM in 0.9 % SODIUM CHLORIDE 50 ML IV ×2 (03:22→08:42)
[2024-12-02 06:13] LABS: Hematocrit 33.8 % (36.0-48.0); Hemoglobin 9.8 g/dL (12.0-16.0); Mean Corpuscular HGB Conc 29.0 g/dL (29.9-35.2); Mean Corpuscular Hemoglobin 26.9 pg (26.7-34.0); Mean Corpuscular Volume 92.9 fL (81.0-99.0); Platelet Count 249 10^3/uL (150-450); Red Blood Count 3.64 10^6/uL (4.20-5.40); White Blood Count 8.8 10^3/uL (4.0-11.0)
[2024-12-02 06:35] LABS: Alanine Aminotransferase 17 U/L (14-59); Albumin Globulin Ratio 0.6; Albumin Level 2.1 g/dL (3.4-5.0); Alkaline Phosphatase 101 U/L (46-116); Anion Gap 10.8; Aspartate Amino Transferase 19 U/L (15-37); Blood Urea Nitrogen 33.0 mg/dL (7.0-18.0); Calcium 8.5 mg/dL (8.5-10.1); Carbon Dioxide 31.9 mmol/L (21.0-32.0); Chloride 112 mmol/L (98-107); Estimated GFR (African America >60 (>=60 mL/min/1.73m^2); Estimated GFR (Non-African Ame 54 (>=60 mL/min/1.73m^2); Globulin 3.8 g/dL; Glucose 98 mg/dL (74-106); Potassium 4.7 mmol/L (3.5-5.1); Sodium 150 mmol/L (136-145); Total Protein 5.9 g/dL (6.4-8.2)
[2024-12-02] MEDS: DEXTROSE 5 % IN WATER 1,000 ML 150 ML IV (07:49)
[2024-12-02] MEDS: FERROUS SULFATE 325 MG TABLET PO (08:38)
[2024-12-02] MEDS: LEVETIRACETAM 500 MG TABLET PO (08:38)
[2024-12-02] MEDS: METOPROLOL TARTRATE 25 MG TABLET PO (08:38)
--- NOTE | 2024-12-02 09:43 | CM.NOTE ---
Reviewed plan of care with Dr. Oneill. Discharge after noon labs to [facility]. Follow up with [facility] Neurosurgeon. Discussed case with Mechanical Reliability Engineer. Will check with son, South, and get appointment with Neurosurgeon.
--- NOTE | 2024-12-02 10:35 | SWNOTE1 ---
OZZY called the son South to see if he had number for neurosurgeon in [place]. He voiced he was going to call tomorrow, OZZY offered to call and try to set up time for follow up. He is in agreement, but does not have phone number. He recommended calling [facility] to see if they have number. OZZY let son know that pt is discharging today back to [facility] and she will be going skilled. OZZY called [facility] and Renuka provided name and number of neurosurgeon. OZZY called, went to voicemail. OZZY left voicemail and will try calling again later.
--- NOTE | 2024-12-02 11:47 | REH.PTDLY ---
Physical Therapy Daily Note PT Daily Note/Assess Start: 12/01/24 12:22 Freq: Status: Active Protocol: Document 12/02/24 10:15 KSTEINLE (Rec: 12/02/24 11:47 KSTEINLE No Response) Physical Therapy Daily Note/Assessment Time In 09:55 Time Out 10:15 Subjective Pt in chair upon arrival, agreeable to therapy. Therapeutic Exercise 10 Minutes (minutes) Therapeutic Exercise 1 Units Therapeutic Exercise instructed in B LE exs with feet elevated needing AA Treatment for proper form. Pt performs AP, QS, heel slides, and SLR 5-10x ea. Feet lowered in recliner and instructed in LAQ, marching, hip abd and hip add squeezes 15x ea for improved strength for ease of transfers and gait. Therapeutic Activity 8 Minutes (minutes) Therapeutic Activity 0 Units Therapeutic Activity Sit to stand transfers from chair performed 2x. Pt Comments needs Mod A on first time and Min A on second time. Pt requires a few tries initially before actually standing . Cues to push off from arm chairs and to lean forward when doing so. Once standing had pt perform pre-gait weight shifting s-s followed by forward and retro stepping 3x. Pt reports needing to sit down due to fatigue each time. Total Therapy 18 Minutes Total Physical 1 Therapy Units Daily Note Summary Pt fatigues easily during rx, limiting further progressions. Pt able to transfer to standing with 1 assist today opposed to 2. Cues needed with exs for proper form and AA at times. Pt scheduled to return to skilled nursing today per nursing.
--- NOTE | 2024-12-02 11:55 | PM.DS1 ---
DS: Providers Provider Date of admission: 11/28/24 02:30 Primary care physician: Kristin Gracia NP Consults: 11/29/24 11:32 Consult to Pharmacy Routine Consulting Provider: Reason for consultation: Dose imipenem please see baseline kidney function 11/29/24 16:06 Consult to Pharmacy Routine Consulting Provider: Reason for consultation: Please dose antbx and anti fungal 11/30/24 Occupational Therapy Eval and Treat Routine Reason for consultation: weakness Physical Therapy Eval and Treat Routine Reason for consultation: weakness 11/30/24 09:32 Occupational Therapy Eval and Treat Routine Reason for consultation: Weakness Physical Therapy Eval and Treat Routine Reason for consultation: Weakness DS: Diagnosis Discharge Diagnosis (1) Septic shock: (2) Multiple sclerosis: (3) Chronic indwelling Ayala catheter: (4) Septic encephalopathy: (5) Catheter-associated urinary tract infection: (6) BRANDON (acute kidney injury): (7) Anemia: Plan As listed above and others that are not listed DS: Summary Hospital Course Hospital Course: Mrs. Yates is a 54-year-old female who was sent from the alf with change in mental status. She was found to have the following: Severe sepsis with septic shock present on admission. Likely caused by CAUTI that is also present on admission. Her white count is down from 25,000 to 4.9 thousand. CRP still elevated. May lag behind Significant resolution of inflammatory markers. Patient is no longer hypotensive and tachycardic. Patient is no longer febrile. Her white count is down. Patient is no longer encephalopathic. Cultures is growing Enterococcus faecalis. Patient will be discharged to skilled home on oral antibiotic BRANDON and bilateral pyelonephritis and hydro nephrosis. Likely caused by sepsis, septic shock BRANDON had resolved. Likely caused by sepsis. Patient may have ATN already. Recent CAT scan of the abdomen completed 2 days prior to admission showed bilateral hydronephrosis secondary to pyelonephritis and bladder wall thickening. No obstructing stone I would recommend repeat CAT scan of the kidneys and 2 weeks to be arranged by alf providers to ensure recovery of her bilateral hydronephrosis and pyelonephritis Anemia. Likely chronic. Rectal exam completed in the emergency room department as per emergency room provider and reported to be negative for blood. Requested iron study, ferritin Status post 1 units of RBC transfusion Monitor hemoglobin Hemoglobin has been stable. No clinical evidence of acute blood loss. May need to have anemia investigation which may include but not limited to EGD and colonoscopy when she is stable. Septic and metabolic encephalopathy: Altered mental status, diminished responsiveness and weakness Significant resolution of acute encephalopathy over the last 16 hours. Patient is awake, alert and coherent. Able to engage. CT head does not show any acute intracranial process but positive for evidence of recent craniotomy and tumor resection. Prolactin level is normal Keppra level is pending Complete resolution of her encephalopathy. Functional impairment and disability Could be related to metabolic and septic encephalopathy Patient is back to baseline state which is consistent with bed and wheelchair-bound secondary to MS and recent brain cancer and tumor resection. Patient is back to her baseline cognitive status. Able to engage in simple conversation. History of brain cancer s/p resection. Completed in September according to her son in [place]. Continue Keppra for seizure prophylactic measures. Patient is to follow-up with neurosurgery team in [place]. Her son [place] stated that he has the information and will make sure that she follows up with them. Chronic medical conditions not listed above, incidental findings seen on labs and imaging. These would need to be addressed. Could be addressed when time and condition are appropriate. Could be addressed in the outpatient setting by PCP collaboration with other needed outpatient providers. Status at the nursing facility DNR CCA. Patient is back to baseline state. Patient has multiple complex medical issues as listed above and others that are not listed. All appear to be stable. I do not have any clear or strong clinical justification to extend inpatient hospitalization. Patient however will require close and frequent monitoring as well as additional work-up, investigation and therapeutic intervention that could take place from this point on post discharge. That is to prevent relapse, decompensation, rehospitalization and other medical implications. I instructed patient to ask her primary care doctor to obtain [facility] record entirely to address abnormalities seen on labs and imaging that I have and have not addressed during this hospitalization, follow-up on pending blood work, imaging and pathology is if available and to follow-up on needed medical care in the outpatient setting. Time Spent with Patient Time attestation: Total time spent providing and/or coordinating discharge services: Time spent: greater than 30 minutes Exam Constitutional Vital Signs, click to edit/add: Last Vital Signs Temp 97.6 F 12/02/24 07:57 Pulse 72 12/02/24 10:00 Resp 18 12/02/24 07:57 BP 144/95 H 12/02/24 07:59 Pulse Ox 96 12/02/24 10:00 O2 Del Method Nasal Cannula 12/02/24 09:25 O2 Flow Rate 2 12/02/24 07:57 FiO2 4 11/30/24 20:00 DS: Data Data Completed and Pending Labs on day of discharge: Labs from last 24 hours 12/02/24 12/02/24 12/01/24 07:14 05:38 20:38 WBC 8.8 RBC 3.64 L Hgb 9.8 L Hct 33.8 L MCV 92.9 MCH 26.9 MCHC 29.0 L RDW 16.6 H Plt Count 249 MPV 10.7 Sodium 150 H Potassium 4.7 Chloride 112 H Carbon Dioxide 31.9 Anion Gap 10.8 BUN 33.0 H Creatinine 1.06 H Est GFR ( Amer) >60 Est GFR (Non-Af Amer) 54 L BUN/Creatinine Ratio 31.1 Glucose 98 Calcium 8.5 Total Bilirubin 0.3 AST 19 ALT 17 Alkaline Phosphatase 101 Total Protein 5.9 L Albumin 2.1 L Globulin 3.8 Albumin/Globulin Ratio 0.6 C. difficile Toxin PCR POC Glucose 99 122 H 12/01/24 12/01/24 16:30 09:45 WBC RBC Hgb Hct MCV MCH MCHC RDW Plt Count MPV Sodium Potassium Chloride Carbon Dioxide Anion Gap BUN Creatinine Est GFR ( Amer) Est GFR (Non-Af Amer) BUN/Creatinine Ratio Glucose Calcium Total Bilirubin AST ALT Alkaline Phosphatase Total Protein Albumin Globulin Albumin/Globulin Ratio C. difficile Toxin PCR Negative POC Glucose 129 H Preliminary micro results at discharge 11/27/24 20:24 Blood Culture Result 2 - Preliminary Blood NO GROWTH AT 36-48 HOURS. FINAL TO FOLLOW. 11/27/24 20:15 Blood Culture Result 1 - Preliminary Blood NO GROWTH AT 36-48 HOURS. FINAL TO FOLLOW. Discharge Plan Discharge Disposition: Xfer SNF Condition: Fair Discharge Medications: New ampicillin 500 mg capsule 500 mg PO TID 10 Days Qty: 30 0RF Glucagon Emergency Kit (human) 1 mg Recon Soln 1 mg IV Q15M PRN (Reason: Hypoglycemia) Qty: 0 0RF metoprolol tartrate 25 mg Tablet 25 mg PO BID Qty: 0 0RF insulin aspart U-100 [Novolog FlexPen U-100 Insulin] 100 unit/mL (3 mL) Insulin Pen 2 - 10 unit subcut ACHS Qty: 0 0RF ferrous sulfate 325 mg (65 mg iron) Tablet 325 mg PO BID Qty: 0 0RF Continued mirtazapine 15 mg tablet,disintegrating 15 mg PO HS sennosides-docusate sodium [Senna Plus] 8.6-50 mg tablet 2 tab-cap PO .QHS Rx Instructions: at bedtime acetaminophen [Tylenol] 325 mg tablet 650 mg PO Q6H PRN (Reason: pain) trazodone 50 mg tablet 25 mg PO HS levetiracetam 500 mg tablet 500 mg PO Q12H albuterol sulfate 2.5 mg /3 mL (0.083 %) solution for nebulization 2.5 mg inhalation Q4H PRN (Reason: shortness of breath or wheezing) docusate sodium [Colace] 100 mg capsule 100 mg PO BID buspirone 7.5 mg tablet 7.5 mg PO BID melatonin 5 mg tablet 5 mg PO DAILY Discontinued metoprolol succinate 100 mg Tablet Extended Release 24 Hr 100 mg PO QD Qty: 30 11RF Pro-Stat Sugar Free 15 gram- 100 kcal/30 mL Liquid In Packet 1 ea PO BID Qty: 2880 11RF ondansetron 8 mg tablet,disintegrating 8 mg translingual Q8H PRN (Reason: nausea and vomiting) potassium chloride 10 mEq capsule, extended release 10 meq PO DAILY Print Language: Marshallese Forms: Portal Instructions Follow Up Appointments: Follow up with Neurosurgeon @ Dr. Kylie Velazquez, on SaturdayDecember 24 @ 2:10pm. Phone number: [phone] Address:[address] [place] [address] [address]
[2024-12-02 12:11] LABS: Anion Gap 8.0; Blood Urea Nitrogen 33.0 mg/dL (7.0-18.0); Calcium 8.8 mg/dL (8.5-10.1); Carbon Dioxide 33.1 mmol/L (21.0-32.0); Chloride 107 mmol/L (98-107); Estimated GFR (African America >60 (>=60 mL/min/1.73m^2); Estimated GFR (Non-African Ame 51 (>=60 mL/min/1.73m^2); Glucose 107 mg/dL (74-106); Potassium 4.1 mmol/L (3.5-5.1); Sodium 144 mmol/L (136-145)
--- NOTE | 2024-12-02 12:11 | SWNOTE1 ---
OZZY received call back from the office of Neurosurgeon in [place]. OZZY was able to schedule an apt with Dr. Espinal on at 2:10pm. SW put the information on pt's discharge paperwork and will have nursing put on CRF. SW to also let Renuka at [facility] and son know of apt as well.
--- NOTE | 2024-12-02 12:46 | SWNOTE1 ---
Pt is ready for discharge to [facility] today and will be going skilled.
--- NOTE | 2024-12-02 12:50 | SWNOTE1 ---
Pt is ready for d/c today. Called [employer] to set up transportation and they can machine pecan picker at 2:00. SW notified nurse and [facility] of machine pecan picker time.
--- NOTE | 2024-12-02 13:37 | PC.NURSE ---
Report called to Nurse Mckinney at [facility] [id number]. Nurse Mckinney denies questions at this time.
[2024-12-02 16:12] LABS: Levetiracetam (Keppra), S 54.3 ug/mL (10.0-40.0)
--- NOTE | 2024-12-03 13:15 | CM.NOTE ---
ROSE report received, pt discharged on Ampicillin.
== END 2024-12-02 13:56 | DRG 698 ==
LOC: ER 20:39 → MS 11-28 05:09
PROVIDERS: Admitting Provider Internal Medicine; Emergency Provider Emergency Medicine; PCP Nurse Practitioner; Visit Provider Internal Medicine
DX: T83.511A Infection and inflammatory reaction due to indwelling urethral catheter, initial encounter (principal); A41.81 Sepsis due to Enterococcus; R65.21 Severe sepsis with septic shock; G93.41 Metabolic encephalopathy; N17.9 Acute kidney failure, unspecified; N13.6 Pyonephrosis; Z68.43 Body mass index [BMI] 50.0-59.9, adult; G35 Multiple sclerosis; D64.9 Anemia, unspecified; E66.01 Morbid (severe) obesity due to excess calories; Z74.09 Other reduced mobility; Z66 Do not resuscitate; Z85.841 Personal history of malignant neoplasm of brain; R50.9 Fever, unspecified; Y84.6 Urinary catheterization as the cause of abnormal reaction of the patient, or of later complication, without mention of misadventure at the time of the procedure; R06.89 Other abnormalities of breathing; Z74.01 Bed confinement status; Z79.899 Other long term (current) drug therapy; I11.0 Hypertensive heart disease with heart failure; I50.9 Heart failure, unspecified; E78.5 Hyperlipidemia, unspecified; F31.9 Bipolar disorder, unspecified; Z87.442 Personal history of urinary calculi; Z63.8 Other specified problems related to primary support group; F41.9 Anxiety disorder, unspecified
CPT/HCPCS: 36415; 36430; 36569; 36592; 36600; 51702; 70450; 71045; 80048; 80053; 80177; 81001; 82728; 82805; 82948; 83540; 83550; 83605; 83735; 84100; 84146; 85007; 85025; 85027; 85610; 86140; 86850; 86900; 86901; 86923; 87040; 87086; 87088; 87186; 87493; 93005; 93970; 94660; 94761; 96361; 96365; 96366; 96367; 97110; 97162; 97165; 97530; 97535; 99285; C1887; G0328; J0131; J0295; J0613; J0696; J0743; J1100; J1171; J1230; J1580; J1644; J1650; J1953; J2543; P9016; P9046

== ENCOUNTER 2025-01-12 11:42 | Outpatient (OUT) | payer MEDICAID, SELFPAY ==
--- OUTSIDE RECORDS SUMMARY | 2024-12-11 11:00 | XMS_ITS | Continuity of Care Document ---
Author Organization [facility] Address [address] [place] [address] Care Team Providers Care Church Administrator Name Role Phone Mynor López DDS Unavailable Unavailabl e Procedures Procedure Date Silver Diamine Flouride Treatment Silver Diamine Flouride Treatment Silver Diamine Flouride Treatment LIMIT ORAL EVAL PROBLM FOCUS Advance Directives Directive Yes / No Effective Date File Name No Information Encounters Encounter Description Practice Location Reason(s) For Visit Diagnoses Date Provider Providers Copied on Encounter [address] [place] [address], [address], [place], [place], [id number] , [facility] Dental caries, unspecifiedEncounte r for dental examination and cleaning without abnormal findings Rene Chaudhry , [place]. Referring Provider: Rio Ennis. Family History Family Member Type Diagnosis Age At Onset No Information Payers Payer name Insurance type Covered alliance party ID Authoriza titiffanie(s) JAMES Medicaid [facility] [id number] Social History Type Description Quantity Date Captured Comments Sex Female Smoking Status No Information Chief Complaint And Reason For Visit No Information Reason For Referral Reason For Referral No Information History Of Present Illness Encounter Date Complaint History Of Prese nt Illness No Information Functional Status Date Functional Assessmen t No Information Instructions Date Instruction Additional Infor mation No Information Assessments Type Assessment Date No Information Patient Care Teams Name Effective Dates (start - stop) Status Members No Information
--- OUTSIDE RECORDS SUMMARY | 2024-12-29 09:07 | XMS_ITS | Encounter Summary ---
Author Organization [employer] Address [id number] [address] [place] [address] Care Team Providers Care Firefighter Name Role Phone Harveyberenicevicky Kristin Abarca CANTEEN OPERATOR-PIPE CREW FOREMAN Primary Care Provider Encounter Details Date Type Department Care Team (Latest Contact Info) Description 12/29/2024 9:07 AM EDT - 12/29/2024 11:59 PM EDT Hospital Encounter [facility] [place] [facility] Oncology - Radiation Oncology [address] [place] [phone] Discharge Disposition: Still a Patient Social History Tobacco Use Types Packs/Day Years Used Date Smoking Tobacco: Some Days Cigarettes Smokeless Tobacco: Never Alcohol Use Standard Drinks/Week Comments Never 0 (1 standard drink = 0.6 oz pur e alcohol) [facility] Utilities Answer Date Recorded In the past 12 months has e [facility], gas, oil, or water company threatened to [...] got money to buy more. Never True 12/24/2024 Within the past 12 months th e food we bought just didn't last and we didn't have money to get more. Never True 12/24/2024 Comments Unknown Sex and Gender Information Value [...] in the morning and before bedtime. 08/23/2024 ondansetron (ZOFRAN) 8 mg tablet Take 1 tablet (8 mg total) by mouth every 8 (eight) hours as needed for nausea or vomiting. 30 tablet 2 11/19/2024 potassium chloride (KLOR-CON SPRINKLE) 10 MEQ CR capsule 11/06/2024 sennosides-docusate sodium (SENOKOT-S) 8.6-50 mg Take 2 tablets by mouth nightly. 09/28/2024 sulfamethoxazole-tri methoprim (BACTRIM DS) 800-160 mg per tabletIndications:GB M (glioblastoma multiforme) ([facility]) Take 1 tab daily, on Saturday and every week. 60 tablet 1 11/19/2024 traZODone (DESYREL) 50 mg tablet Take 0.5 tablets (25 mg total) by mouth. 02/05/2024 temozolomide (TEMODAR) 180 MG chemo capsuleIndications:G BM (glioblastoma multiforme) ([facility]) Take 1 capsule by mouth daily 42 capsule 11/13/2024 documented as of this encounter Plan of Treatment Upcoming Encounters Date Type Department Care Team (Late st Contact Info) Description 01/13/2025 10:30 AM EDT Appointment [facility] - Radiation Oncology [address] [place] [phone] 01/14/2025 10:30 AM EDT Appointment [facility] - Radiation Oncology [address] [place] [phone] 01/15/2025 10:30 AM EDT Appointment [facility] - Radiation Oncology [address] [place] [phone] 01/19/2025 9:45 AM EDT Appointment [facility] - Radiation Oncology [address] [place] [phone] 01/19/2025 10:30 AM EDT Appointment [facility] - Radiation Oncology [address] [place] [phone] 01/20/2025 10:30 AM EDT Appointment [facility] - Radiation Oncology [address] [place] [phone] 01/21/2025 10:30 AM EDT Appointment [facility] - Radiation Oncology [address] [place] [phone] 03/04/2025 11:15 AM EDT Office Visit Meera Albarado [facility] - Medical Oncology [address] [place] [phone] Guillermo Lundberg MD [address] [facility] [address] [place] [phone] documented as of this encounter Goals Goal Patient Goal Type Associated Problems Recent Progress Patient-Stated? Author SNF General Yes Amparo Lamas LSW Note: Evaluation of progress towards goal: SNF recommended, pt agreeable to SNF stating she is not able to care for self at home at this time documented as of this encounter Visit Diagnoses Not on filedocumented in this encounter Care Teams Firefighter Relationship Specialty Start Date End Date Kristin Gracia, CANTEEN OPERATOR-PIPE CREW FOREMAN PCP - General Nurse Practitioner 08/28/24 documented as of this encounter
--- OUTSIDE RECORDS SUMMARY | 2024-12-29 09:07 | XMS_ITS | Encounter Summary ---
Author Organization [facility] Address [id number] [address] [place] [address] Care Team Providers Care Dumper Bulk System Name Role Phone Kristin Gracia CHEMIST PHYSICAL-MANAGER LOAN Primary Care Provider Encounter Details Date Type Department Care Team (Latest Contact Info) Description 12/29/2024 9:07 AM EDT - 12/29/2024 11:59 PM EDT Hospital Encounter [facility] Oncology - Radiation Oncology [address] [place] [phone] GBM (glioblastoma multiforme) ([facility]) (Primary Dx) Discharge Disposition: Still a Patient Social History Tobacco Use Types Packs/Day Years Used Date Smoking Tobacco: Some Days Cigarettes Smokeless Tobacco: Never Alcohol Use Standard Drinks/Week Comments Never 0 (1 standard drink = 0.6 oz pur e alcohol) [facility] Utilities Answer Date Recorded In the past 12 months has [employer], gas, oil, or water [employer] threatened to shut off services in your [...] Sign Reading Time Taken Comments Blood Pressure 113/67 12/29/2024 10:41 AM EDT Pulse 76 12/29/2024 10:41 AM EDT Temperature 36.4 C (97.5 F) 12/29/2024 10:41 AM EDT Respiratory Rate 18 12/29/2024 10:41 AM EDT Oxygen Saturation 98% 12/29/2024 10:41 AM EDT Inhaled Oxygen Concentration - - Weight - - Height - - Body Mass Index - - documented in this encounter Medications at Time [...] 800-160 mg per tabletIndications:GB M (glioblastoma multiforme) ([facility]) Take 1 tab daily, on Saturday and every week. 60 tablet 1 11/19/2024 traZODone (DESYREL) 50 mg tablet Take 0.5 tablets (25 mg total) by mouth. 02/05/2024 temozolomide (TEMODAR) 180 MG chemo capsuleIndications:G BM (glioblastoma multiforme) (CMS-HCC) Take 1 capsule by mouth daily 42 capsule 11/13/2024 5 documented as of this encounter Progress Notes * Meera Cope MD - 12/29/2024 9:45 AM EDT RADIATION ONCOLOGY WEEKLY PROGRESS NOTE Date of Service: 12/29/2024 Location: [facility] ON[facility] - RADIATION ONCOLOGY [address] [place] [phone] Patient ID: Yamilka Yates : 1970 Diagnosis: Cancer Staging GBM (glioblastoma multiforme) ([facility]) Staging form: Brain and Spinal Cord, AJCC Version 9 - Clinical stage from 09/23/2024: WHO G4 - Signed by Grey Yo MD on 11/12/2024 Radiation Treatment Information: Radiation Treatments Active Plans Rt Temportal Lobe and Edema; IMRT VMAT [RtTempLobeEd] Most recent treatment: Dose planned: 200 (fraction 15 on 12/29/2024) Total: Dose planned: 4,600 (23 fractions) Elapsed Days: 22 Reference Points Rx Brain Most recent treatment: Dose given: 200 (on 12/29/2024) Total: Dose given: 3,000 Elapsed Days: 22 Site: rt temporal lobe brain+edema Rad [place] Imaging: Cone Beam CT ENERGY: 10MV TECHNIQUE: IMRT (VMAT) Boost/Additional Site: Boost (Rt Temporal Lobe) Rad [place] Imaging - Boost: Cone Beam CT ENERGY: 10MV TECHNIQUE: IMRT (VMAT) Chemotherapy Update: Previous Chemotherapy Treatment: No Concurrent Chemotherapy Regimen: No Plan for post RT Chemotherapy : Yes. Temodar SUBJECTIVE: Patient states that she is doing well today. She denies any new problems or complaints. She does not have headaches and has not noticed any new focal deficits. She does notice that she is having a slight loss of hair and more dandruff in that area but no other problems. OBJECTIVE: Well-developed, obese, pleasant white female sitting in a wheelchair in no acute distress. She is alert and oriented with normal affect. Labs: Lab Results Component Value Date WBC 15.5 (H) 09/28/2024 W.B.CELLS 39 (H) 09/19/2024 Creatinine 0.87 09/01/2024 CREATININE 0.74 09/28/2024 AST 19 09/24/2024 Medications: Current Outpatient Medications: acetaminophen (TYLENOL) 325 mg tablet, Take 2 tablets (650 mg total) by mouth every 6 (six) hours as needed for pain., Disp: , Rfl: bumetanide (BUMEX) 2 mg tablet, , Disp: , Rfl: busPIRone (BUSPAR) 7.5 mg tablet, Take 1 tablet (7.5 mg total) by mouth., Disp: , Rfl: dexAMETHasone (DECADRON) 4 mg tablet, Take by mouth., Disp: , Rfl: levETIRAcetam (KEPPRA) 500 mg tablet, Take 1 tablet (500 mg total) by mouth in the morning and 1 tablet (500 mg total) before bedtime., Disp: , Rfl: levoFLOXacin (LEVAQUIN) 500 mg tablet, Take 1 tablet (500 mg total) by mouth in the morning. End 11/24/24., Disp: , Rfl: metoprolol tartrate (LOPRESSOR) 25 mg tablet, Take 1 tablet (25 mg total) by mouth in the morning and 1 tablet (25 mg total) before bedtime., Disp: , Rfl: mirtazapine (REMERON CANDI-TAB) 15 mg disintegrating tablet, Dissolve 1 tablet (15 mg total) on tongue nightly., Disp: , Rfl: nystatin (MYCOSTATIN) powder, Apply topically in the morning and before bedtime., Disp: , Rfl: ondansetron (ZOFRAN) 8 mg tablet, Take 1 tablet (8 mg total) by mouth every 8 (eight) hours as needed for nausea or vomiting., Disp: 30 tablet, Rfl: 2 potassium chloride (KLOR-CON SPRINKLE) 10 MEQ CR capsule, , Disp: , Rfl: sennosides-docusate sodium (SENOKOT-S) 8.6-50 mg, Take 2 tablets by mouth nightly., Disp: , Rfl: sulfamethoxazole-trimethoprim (BACTRIM DS) 800-160 mg per tablet, Take 1 tab daily, on Saturday and every week., Disp: 60 tablet, Rfl: 1 temozolomide (TEMODAR) 180 MG chemo capsule, Take 1 capsule by mouth daily, Disp: 42 capsule, Rfl: 0 traZODone (DESYREL) 50 mg tablet, Take 0.5 tablets (25 mg total) by mouth., Disp: , Rfl: Pain Plan: None needed Immunizations/Smoking Status: No data recorded Immunization History Administered Date(s) Administered COVID-19 Vaccine, vector-nr, rS-Ad26, PF, 0.5mL 07/28/2020 COVID-19, mRNA, LNP-S, PF, 100mcg/0.5mL Dose 05/18/2021 Covid-19, Mrna, Lnp-s, Bivalent, Pf, 30mcg/0.3 ml 05/29/2022 Influenza High Dose Preservative Free IM 04/27/2014, 03/19/2015, 03/07/2022 Influenza, Im Flucelvax (Pf) 03/05/2024 Influenza, Im Trivalent Preservative 04/30/2023 Influenza, Injectable, quadrivalent (PF) 04/03/2016, 02/27/2017, 06/05/2018, 03/20/2019, 04/08/2020 Influenza, Intradermal (Pf) 05/02/2023 Pneumococcal Polysaccharide 10/02/2016 Tdap 10/02/2016 Unknown Vaccine Or Immune Globulin 10/02/2016, 07/28/2020, 05/18/2021, 05/29/2022, 03/05/2024 Social History Tobacco Use Smoking Status Some Days Current packs/day: 0.50 Types: Cigarettes Smokeless Tobacco Never Ready to quit: Not Answered Counseling given: Not Answered PHYSICAL FINDINGS: ECO- Symptomatic; in bed <50% of the day Vital Signs: There were no vitals taken for this visit. Wt Readings from Last 5 Encounters: 12/24/24 128.4 kg (283 lb) 12/10/24 128.6 kg (283 lb 9.6 oz) 11/13/24 127.4 kg (280 lb 12.8 oz) 11/13/24 114.8 kg (253 lb) 11/13/24 127.4 kg (280 lb 12.8 oz) ASSESSMENT PLAN: The patient appears to be doing well and actually is apparently doing much better physically and cognitively. Medical Oncology has decided to hold Temodar until she completes radiation therapy. We will continue with her radiation therapy as planned MEERA COPE MD December 29, 2024, 10:34 AM Medications Prescribed: Medication List None Other Orders Placed: Orders Placed This Encounter Procedures DAILY RADIATION TREATMENT documented in this encounter Plan of Treatment Upcoming Encounters Date Type Department Care Team (Late st Contact Info) Description 01/13/2025 10:30 AM EDT Appointment [facility] Oncology - Radiation Oncology [address] [place] [phone] 01/14/2025 10:30 AM EDT Appointment [facility] - Radiation Oncology [address] [place] [phone] 01/15/2025 10:30 AM EDT Appointment [facility] - Radiation Oncology [address] [place] [phone] 01/19/2025 9:45 AM EDT Appointment [facility] Oncology - Radiation Oncology [address] [place] [phone] 01/19/2025 10:30 AM EDT Appointment [facility] Oncology - Radiation Oncology [address] [place] [phone] 01/20/2025 10:30 AM EDT Appointment [facility] Oncology - Radiation Oncology [address] [place] [phone] 01/21/2025 10:30 AM EDT Appointment [facility] Oncology - Radiation Oncology [address] [place] [phone] 03/04/2025 11:15 AM EDT Office Visit Meera Alves [facility] - Medical Oncology [address] [place] [phone] Guillermo Lundberg MD [address] [place] [address] documented as of this encounter Goals Goal Patient Goal Type Associated Problems Recent Progress Patient-Stated? Author SNF General Yes Amparo Lamas LSW Note: Evaluation of progress towards goal: SNF recommended, pt agreeable to SNF stating she is not able to care for self at home at this time documented as of this encounter Procedures Procedure Name Priority Date/Time Associated Diagnosis Comments DAILY RADIATION TREATMENT Routine 12/29/2024 9:20 AM EDT documented in this encounter Results * DAILY RADIATION TREATMENT (12/29/2024 9:20 AM EDT) Course Id C1 VARIAN POCT Course Start Date 11/13/2024 VARIAN POCT First Treatment Date 12/07/2024 VARIAN POCT Last Treatment Date 12/29/2024 VARIAN POCT Elapsed Days 22 VARIAN POCT Reference Point Id Rx Brain VARIAN POCT Dose Given To Date 3,000 VARIAN POCT Session Dose Given 200 VARIAN POCT Plan ID RtTempLobeEd VARIAN POCT Plan Name Rt Temportal Lobe and Edema; IMRT VMAT VARIAN POCT Plan Fractions Treated 15 VARIAN POCT Fractions Prescribed 23 VARIAN POCT Prescribed Dose per Fraction 200 VARIAN POCT Plan Total Prescribed Dose 4,600 VARIAN POCT 12/29/2024 9:20 AM EDT us Not In System Ref Prov RADIATION ONCOLOGY ORDERA BLES Final Result VARIAN POCT documented in this encounter Visit Diagnoses Diagnosis GBM (glioblastoma multiforme) ([facility])- Primary Malignant neoplasm of brain, unspecified site documented in this encounter Care Teams Dumper Bulk System Relationship Specialty Start Date End Date Kristin Gracia, CHEMIST PHYSICAL-MANAGER LOAN PCP - General Nurse Practitioner 08/28/24 documented as of this encounter
--- OUTSIDE RECORDS SUMMARY | 2024-12-30 08:55 | XMS_ITS | Encounter Summary ---
Author Organization [employer] tem Address [facility] [id number] [address] [place] [address] Care Team Providers Care Button Pusher Name Role Phone Harveyberenicevicky Kristin Abarca GUIDE SETTER-CLINICAL INFORMATICIST Primary Care Provider Encounter Details Date Type Department Care Team (Latest Contact Info) Description 12/30/2024 8:55 AM EDT - 12/30/2024 11:59 PM EDT Hospital Encounter [facility] Oncology - Radiation Oncology [address] [place] [phone] Discharge Disposition: Still a Patient Social History Tobacco Use Types Packs/Day Years Used Date Smoking Tobacco: Some Days Cigarettes Smokeless Tobacco: Never Alcohol Use Standard Drinks/Week Comments Never 0 (1 standard drink = 0.6 oz pur e alcohol) [facility] Utilities Answer Date Recorded In the past 12 months has e [employer], gas, oil, or water company threatened to [...] 800-160 mg per tabletIndications:GB M (glioblastoma multiforme) ([facility]) Take 1 tab daily, on Saturday and every week. 60 tablet 1 11/19/2024 traZODone (DESYREL) 50 mg tablet Take 0.5 tablets (25 mg total) by mouth. 02/05/2024 temozolomide (TEMODAR) 180 MG chemo capsuleIndications:G BM (glioblastoma multiforme) ([facility]) Take 1 capsule by mouth daily 42 capsule 11/13/2024 documented as of this encounter Plan of Treatment Upcoming Encounters Date Type Department Care Team (Late st Contact Info) Description 01/13/2025 10:30 AM EDT Appointment [facility] On[facility] - Radiation Oncology [address] [place] [phone] 01/14/2025 10:30 AM EDT Appointment [facility] - Radiation Oncology [address] [place] [phone] 01/15/2025 10:30 AM EDT Appointment [facility] - Radiation Oncology [address] [place] [phone] 01/19/2025 9:45 AM EDT Appointment [facility] - Radiation Oncology [address] [place] [phone] 01/19/2025 10:30 AM EDT Appointment [facility] - Radiation Oncology [address] [place] [phone] 01/20/2025 10:30 AM EDT Appointment [facility] - Radiation Oncology [address] [place] [phone] 01/21/2025 10:30 AM EDT Appointment [facility] - Radiation Oncology [address] [place] [phone] 03/04/2025 11:15 AM EDT Office Visit Meera Albarado [facility] - Medical Oncology [address] [place] [phone] Guillermo Lundberg MD [address] [facility] [address] [place] [phone] documented as of this encounter Goals [...] Associated Diagnosis Comments DAILY RADIATION TREATMENT Routine 12/30/2024 9:24 AM EDT documented in this encounter Results * DAILY RADIATION TREATMENT (12/30/2024 9:24 AM EDT) Course Id C1 VARIAN POCT Course Start Date 11/13/2024 VARIAN POCT First Treatment Date 12/07/2024 VARIAN POCT Last Treatment Date 12/30/2024 VARIAN POCT Elapsed Days 23 VARIAN POCT Reference Point Id Rx Brain VARIAN POCT Dose Given To Date 3,200 VARIAN POCT Session Dose Given 200 VARIAN POCT Plan ID RtTempLobeEd VARIAN POCT Plan Name Rt Temportal Lobe and Edema; IMRT VMAT VARIAN POCT Plan Fractions Treated 16 VARIAN POCT Fractions Prescribed 23 VARIAN POCT Prescribed Dose per Fraction 200 VARIAN POCT Plan Total Prescribed Dose 4,600 VARIAN POCT 12/30/2024 9:24 AM EDT us Not In System Ref Prov RADIATION ONCOLOGY ORDERA BLES Final Result VARIAN POCT documented in this encounter Visit Diagnoses Not on filedocumented in this encounter Care Teams Button Pusher Relationship Specialty Start Date End Date Kristin Gracia, GUIDE SETTER-CLINICAL INFORMATICIST PCP - General Nurse Practitioner 08/28/24 documented as of this encounter
--- OUTSIDE RECORDS SUMMARY | 2024-12-31 08:51 | XMS_ITS | Encounter Summary ---
Author Organization [facility] [employer] tem Address [facility] [id number] [address] [place] [address] Care Team Providers Care Zookeeper Name Role Phone Harveyberenicevicky Kristin Abarca BIOLOGY RESEARCH ASSISTANT-FLOOR CLEANER Primary Care Provider Encounter Details Date Type Department Care Team (Latest Contact Info) Description 12/31/2024 8:51 AM EDT - 12/31/2024 11:59 PM EDT Hospital Encounter [facility] Oncology - Radiation Oncology [address] [place] [phone] Discharge Disposition: Still a Patient Social History Tobacco Use Types Packs/Day Years Used Date Smoking Tobacco: Some Days Cigarettes Smokeless Tobacco: Never Alcohol Use Standard Drinks/Week Comments Never 0 (1 standard drink = 0.6 oz pur e alcohol) [facility] Utilities Answer Date Recorded In the past 12 months has e [employer], gas, oil, or water company threatened to [...] mg total) before bedtime. 09/28/2024 mirtazapine (REMERON CADNI-TAB) 15 mg disintegrating tablet Dissolve 1 tablet [...] 800-160 mg per tabletIndications:GB M (glioblastoma multiforme) (CMS-HCC) Take 1 tab daily, on Saturday and every week. 60 tablet 1 11/19/2024 temozolomide (TEMODAR) 180 MG chemo capsuleIndications:G BM (glioblastoma multiforme) (CMS-HCC) Take 1 capsule by mouth daily 30 capsule 12/31/2024 traZODone (DESYREL) 50 mg tablet Take 0.5 tablets (25 mg total) by mouth. 02/05/2024 documented as of this encounter Plan of Treatment Upcoming Encounters Date Type Department Care Team (Late st Contact Info) Description 01/13/2025 10:30 AM EDT [facility]ment [facility] [address] [place] [phone] 01/14/2025 10:30 AM EDT Appointment [facility] - Radiation Oncology [address] [place] [phone] 01/15/2025 10:30 AM EDT Appointment [facility] - Radiation Oncology [address] [place] [phone] 01/19/2025 9:45 AM EDT Appointment [facility] - Radiation Oncology [address] [place] [phone] 01/19/2025 10:30 AM EDT Appointment [facility] - Radiation Oncology [address] [place] [phone] 01/20/2025 10:30 AM EDT Appointment [facility] - Radiation Oncology [address] [place] [phone] 01/21/2025 10:30 AM EDT Appointment [facility] - Radiation Oncology [address] [place] [phone] 03/04/2025 11:15 AM EDT Office Visit [facility] - Medical Oncology [address] [place] [phone] Guillermo Lundberg MD [address] [facility] [address] [place] [phone] documented as of this encounter Goals [...] Associated Diagnosis Comments DAILY RADIATION TREATMENT Routine 12/31/2024 9:42 AM EDT documented in this encounter Results * DAILY RADIATION TREATMENT (12/31/2024 9:42 AM EDT) Course Id C1 VARIAN POCT Course Start Date 11/13/2024 VARIAN POCT First Treatment Date 12/07/2024 VARIAN POCT Last Treatment Date 12/31/2024 VARIAN POCT Elapsed Days 24 VARIAN POCT Reference Point Id Rx Brain VARIAN POCT Dose Given To Date 3,400 VARIAN POCT Session Dose Given 200 VARIAN POCT Plan ID RtTempLobeEd VARIAN POCT Plan Name Rt Temportal Lobe and Edema; IMRT VMAT VARIAN POCT Plan Fractions Treated 17 VARIAN POCT Fractions Prescribed 23 VARIAN POCT Prescribed Dose per Fraction 200 VARIAN POCT Plan Total Prescribed Dose 4,600 VARIAN POCT 12/31/2024 9:42 AM EDT us Not In System Ref Prov RADIATION ONCOLOGY ORDERA BLES Final Result VARIAN POCT documented in this encounter Visit Diagnoses Not on filedocumented in this encounter Care Teams Zookeeper Relationship Specialty Start Date End Date Kristin Gracia, BIOLOGY RESEARCH ASSISTANT-FLOOR CLEANER PCP - General Nurse Practitioner 08/28/24 documented as of this encounter
--- OUTSIDE RECORDS SUMMARY | 2025-01-01 08:55 | XMS_ITS | Encounter Summary ---
Author Organization [facility] s tem Address [facility] [id number] [address] [place] [address] Care Team Providers Care Adult Education Professional Name Role Phone Harveyberenicevicky Kristin Abarca FIELD LIABILITY GENERALIST-FILLING AND STAPLING MACHINE OPERATOR Primary Care Provider Encounter Details Date Type Department Care Team (Latest Contact Info) Description 01/01/2025 8:55 AM EDT - 01/01/2025 11:59 PM EDT Hospital Encounter [facility] Oncology - Radiation Oncology [address] [place] [phone] Discharge Disposition: Still a Patient Social History Tobacco Use Types Packs/Day Years Used Date Smoking Tobacco: Some Days Cigarettes Smokeless Tobacco: Never Alcohol Use Standard Drinks/Week Comments Never 0 (1 standard drink = 0.6 oz pur e alcohol) [facility] Utilities Answer Date Recorded In the past 12 months has e [employer], gas, oil, or water company threatened to [...] Info) Description 01/13/2025 10:30 AM EDT Appointment [facility] - Radiation Oncology [address] [place] [phone] 01/14/2025 10:30 AM EDT Appointment [facility] - Radiation Oncology [address] [place] [phone] 01/15/2025 10:30 AM EDT Appointment [facility] - Radiation Oncology [address] [place] [phone] 01/19/2025 9:45 AM EDT Appointment [facility] - Radiation Oncology [address] [place] [phone] 01/19/2025 10:30 AM EDT Appointment [facility] - Radiation Oncology [address] [place] [phone] 01/20/2025 10:30 AM EDT Appointment [facility] - Radiation Oncology [address] [place] [phone] 01/21/2025 10:30 AM EDT Appointment [facility] - Radiation Oncology [address] [place] [phone] 03/04/2025 11:15 AM EDT Office Visit [facility] - Medical Oncology [address] [place] [phone] Guillermo Lundberg MD [address] [facility] [address] [place] [address] documented as of this encounter Goals [...] Associated Diagnosis Comments DAILY RADIATION TREATMENT Routine 01/01/2025 9:36 AM EDT documented in this encounter Results * DAILY RADIATION TREATMENT (01/01/2025 9:36 AM EDT) Course Id C1 VARIAN POCT Course Start Date 11/13/2024 VARIAN POCT First Treatment Date 12/07/2024 VARIAN POCT Last Treatment Date 01/01/2025 VARIAN POCT Elapsed Days 25 VARIAN POCT Reference Point Id Rx Brain VARIAN POCT Dose Given To Date 3,600 VARIAN POCT Session Dose Given 200 VARIAN POCT Plan ID RtTempLobeEd VARIAN POCT Plan Name Rt Temportal Lobe and Edema; IMRT VMAT VARIAN POCT Plan Fractions Treated 18 VARIAN POCT Fractions Prescribed 23 VARIAN POCT Prescribed Dose per Fraction 200 VARIAN POCT Plan Total Prescribed Dose 4,600 VARIAN POCT 01/01/2025 9:36 AM EDT us Not In System Ref Prov RADIATION ONCOLOGY ORDERA BLES Final Result VARIAN POCT documented in this encounter Visit Diagnoses Not on filedocumented in this encounter Care Teams Adult Education Professional Relationship Specialty Start Date End Date Kristin Gracia, FIELD LIABILITY GENERALIST-FILLING AND STAPLING MACHINE OPERATOR PCP - General Nurse Practitioner 08/28/24 documented as of this encounter
--- OUTSIDE RECORDS SUMMARY | 2025-01-04 08:52 | XMS_ITS | Encounter Summary ---
Author Organization [employer] s tem Address [id number] [address] [place] [address] Care Team Providers Care Practice Architect Name Role Phone Harveyberenicevicky Kristin Abarca RN VISITING-TILE MOLDER HAND Primary Care Provider Encounter Details Date Type Department Care Team (Latest Contact Info) Description 01/04/2025 8:52 AM EDT - 01/04/2025 11:59 PM EDT Hospital Encounter [facility] Oncology - Radiation Oncology [address] [place] [phone] Discharge Disposition: Still a Patient Social History Tobacco Use Types Packs/Day Years Used Date Smoking Tobacco: Some Days Cigarettes Smokeless Tobacco: Never Alcohol Use Standard Drinks/Week Comments Never 0 (1 standard drink = 0.6 oz pur e alcohol) [facility] Utilities Answer Date Recorded In the past 12 months has e [employer], gas, oil, or water company threatened to [...] Sign Reading Time Taken Comments Blood Pressure 126/63 01/04/2025 9:57 AM EDT Pulse 80 01/04/2025 9:57 AM EDT Temperature 2.5 C (36.5 F) 01/04/2025 9:57 AM EDT Respiratory Rate 18 01/04/2025 9:57 AM EDT Oxygen Saturation 99% 01/04/2025 9:57 AM EDT Inhaled Oxygen Concentration - - [...] 800-160 mg per tabletIndications:GB M (glioblastoma multiforme) ([facility]) Take 1 tab daily, on Saturday and every week. 60 tablet 1 11/19/2024 temozolomide (TEMODAR) 180 MG chemo capsuleIndications:G BM (glioblastoma multiforme) ([facility]) Take 1 capsule by mouth daily 30 capsule 12/31/2024 traZODone (DESYREL) 50 mg tablet Take 0.5 tablets (25 mg total) by mouth. 02/05/2024 documented as of this encounter Plan of Treatment Upcoming Encounters Date Type Department Care Team (Late st Contact Info) Description 01/13/2025 10:30 AM EDT Appointment [facility] On[facility] - Radiation Oncology [address] [place] [phone] 01/14/2025 10:30 AM EDT Appointment [facility] Oncology - Radiation Oncology [address] [place] [phone] 01/15/2025 10:30 AM EDT Appointment [facility] - Radiation Oncology [address] [place] [phone] 01/19/2025 9:45 AM EDT Appointment [facility] - Radiation Oncology [address] [place] [phone] 01/19/2025 10:30 AM EDT Appointment [facility] - Radiation Oncology [address] [place] [phone] 01/20/2025 10:30 AM EDT Appointment [facility] Oncology - Radiation Oncology [address] [place] [phone] 01/21/2025 10:30 AM EDT Appointment [facility] Oncology Radiation Oncology [address] [place] [phone] 03/04/2025 11:15 AM EDT Office Visit Meera Albarado [facility] - Medical Oncology [address] [place] [phone] Guillermo Lundberg MD [address] [place] [address] [address] [place], [place] [phone] documented as of this encounter Goals Goal [...] Associated Diagnosis Comments DAILY RADIATION TREATMENT Routine 01/04/2025 9:34 AM EDT documented in this encounter Results * DAILY RADIATION TREATMENT (01/04/2025 9:34 AM EDT) Course Id C1 VARIAN POCT Course Start Date 11/13/2024 VARIAN POCT First Treatment Date 12/07/2024 VARIAN POCT Last Treatment Date 01/04/2025 VARIAN POCT Elapsed Days 28 VARIAN POCT Reference Point Id Rx Brain VARIAN POCT Dose Given To Date 3,800 VARIAN POCT Session Dose Given 200 VARIAN POCT Plan ID RtTempLobeEd VARIAN POCT Plan Name Rt Temportal Lobe and Edema; IMRT VMAT VARIAN POCT Plan Fractions Treated 19 VARIAN POCT Fractions Prescribed 23 VARIAN POCT Prescribed Dose per Fraction 200 VARIAN POCT Plan Total Prescribed Dose 4,600 VARIAN POCT 01/04/2025 9:34 AM EDT us Not In System Ref Prov RADIATION ONCOLOGY ORDERA BLES Final Result VARIAN POCT documented in this encounter Visit Diagnoses Not on filedocumented in this encounter Care Teams Practice Architect Relationship Specialty Start Date End Date Kristin Gracia, RN VISITING-TILE MOLDER HAND PCP - General Nurse Practitioner 08/28/24 documented as of this encounter
--- OUTSIDE RECORDS SUMMARY | 2025-01-04 08:52 | XMS_ITS | Encounter Summary ---
Author Organization [facility] Address [id number] [address] [place] [address] Care Team Providers Care Towel Weaver Name Role Phone Kristin Gracia PROGRAMMING COORDINATOR-MILITARY TECHNICIAN Primary Care Provider Encounter Details Date Type Department Care Team (Latest Contact Info) Description 01/04/2025 8:52 AM EDT - 01/04/2025 11:59 PM EDT Hospital Encounter [facility] Oncology - Radiation Oncology [address] [place] [phone] GBM (glioblastoma multiforme) ([facility]) (Primary Dx) Discharge Disposition: Still a Patient Social History Tobacco Use Types Packs/Day Years Used Date Smoking Tobacco: Some Days Cigarettes Smokeless Tobacco: Never Alcohol Use Standard Drinks/Week Comments Never 0 (1 standard drink = 0.6 oz pur e alcohol) [facility] Utilities Answer Date Recorded In the past 12 months has [employer], gas, oil, or water [employer] threatened to shut off services in your [...] 800-160 mg per tabletIndications:GB M (glioblastoma multiforme) ([facility]) Take 1 tab daily, on Saturday and every week. 60 tablet 1 11/19/2024 temozolomide (TEMODAR) 180 MG chemo capsuleIndications:G BM (glioblastoma multiforme) ([facility]) Take 1 capsule by mouth daily 30 capsule 12/31/2024 traZODone (DESYREL) 50 mg tablet Take 0.5 tablets (25 mg total) by mouth. 02/05/2024 documented as of this encounter Plan of Treatment Upcoming Encounters Date Type Department Care Team (Late st Contact Info) Description 01/13/2025 10:30 AM EDT [facility] [address] [place] [phone] 01/14/2025 10:30 AM EDT Appointment [facility] Oncology - Radiation Oncology [address] [place] [phone] 01/15/2025 10:30 AM EDT [facility] [address] [place] [phone] 01/19/2025 9:45 AM EDT [facility] [address] [place] [phone] 01/19/2025 10:30 AM EDT [facility] [address] [place] [phone] 01/20/2025 10:30 AM EDT Appointment [facility] Oncology - Radiation Oncology [address] [place] [phone] 01/21/2025 10:30 AM EDT Appointment [facility] Oncology - Radiation Oncology [address] [place] [phone] 03/04/2025 11:15 AM EDT [facility] - Medical Oncology [address] [place] [address] Guillermo Lundberg MD [address] [facility] [address] [place] [address] documented as of this encounter Goals Goal Patient Goal Type Associated Problems Recent Progress Patient-Stated? Author SNF General Yes Amparo Lamas LSW Note: Evaluation of progress towards goal: SNF recommended, pt agreeable to SNF stating she is not able to care for self at home at this time documented as of this encounter Visit Diagnoses Diagnosis GBM (glioblastoma multiforme) ([facility]-HCC)- Primary Malignant neoplasm of brain, unspecified site documented in this encounter Care Teams Towel Weaver Relationship Specialty Start Date End Date Kristin Gracia APRN-MILITARY TECHNICIAN PCP - General Nurse Practitioner 08/28/24 documented as of this encounter
--- OUTSIDE RECORDS SUMMARY | 2025-01-05 09:02 | XMS_ITS | Encounter Summary ---
Author Organization [employer] s tem Address [id number] [address] [place] [address] Care Team Providers Care Welding Machine Operator Name Role Phone Harveyberenicevicky Kristin Abarca SCREENER OPERATOR-LABOR GANG SUPERVISOR Primary Care Provider Encounter Details Date Type Department Care Team (Latest Contact Info) Description 01/05/2025 9:02 AM EDT - 01/05/2025 11:59 PM EDT Hospital Encounter [facility] Oncology - Radiation Oncology [address] [place] [phone] Discharge Disposition: Still a Patient Social History Tobacco Use Types Packs/Day Years Used Date Smoking Tobacco: Some Days Cigarettes Smokeless Tobacco: Never Alcohol Use Standard Drinks/Week Comments Never 0 (1 standard drink = 0.6 oz pur e alcohol) [facility] Utilities Answer Date Recorded In the past 12 months has e [employer], gas, oil, or water company threatened to [...] Info) Description 01/13/2025 10:30 AM EDT [facility]ment [facility] Oncology [address] [place] [phone] 01/14/2025 10:30 AM EDT Appointment [facility] Oncology - Radiation Oncology [address] [place] [phone] 01/15/2025 10:30 AM EDT Appointment [facility] Oncology - Radiation Oncology [address] [place] [phone] 01/19/2025 9:45 AM EDT Appointment [facility] Oncology - Radiation Oncology [address] [place] [phone] 01/19/2025 10:30 AM EDT Appointment [facility] Oncology - Radiation Oncology [address] [place] [phone] 01/20/2025 10:30 AM EDT Appointment [facility] Oncology - Radiation Oncology [address] [place] [phone] 01/21/2025 10:30 AM EDT Appointment [facility] Oncology - Radiation Oncology [address] [place] [phone] 03/04/2025 11:15 AM EDT [facility] - Medical Oncology [address] [place] [address] Guillermo Lundberg MD [address] [facility] [address] [place] [address] documented as of this encounter Goals [...] Associated Diagnosis Comments DAILY RADIATION TREATMENT Routine 01/05/2025 9:35 AM EDT documented in this encounter Results * DAILY RADIATION TREATMENT (01/05/2025 9:35 AM EDT) Course Id C1 VARIAN POCT Course Start Date 11/13/2024 VARIAN POCT First Treatment Date 12/07/2024 VARIAN POCT Last Treatment Date 01/05/2025 VARIAN POCT Elapsed Days 29 VARIAN POCT Reference Point Id Rx Brain VARIAN POCT Dose Given To Date 4,000 VARIAN POCT Session Dose Given 200 VARIAN POCT Plan ID RtTempLobeEd VARIAN POCT Plan Name Rt Temportal Lobe and Edema; IMRT VMAT VARIAN POCT Plan Fractions Treated 20 VARIAN POCT Fractions Prescribed 23 VARIAN POCT Prescribed Dose per Fraction 200 VARIAN POCT Plan Total Prescribed Dose 4,600 VARIAN POCT 01/05/2025 9:35 AM EDT us Not In System Ref Prov RADIATION ONCOLOGY ORDERA BLES Final Result VARIAN POCT documented in this encounter Visit Diagnoses Not on filedocumented in this encounter Care Teams Welding Machine Operator Relationship Specialty Start Date End Date Kristin Gracia, SCREENER OPERATOR-LABOR GANG SUPERVISOR PCP - General Nurse Practitioner 08/28/24 documented as of this encounter
--- OUTSIDE RECORDS SUMMARY | 2025-01-06 09:15 | XMS_ITS | Encounter Summary ---
Author Organization [employer] s tem Address [id number] [address] [place] [address] Care Team Providers Care Developer [employer] Systems Name Role Phone Harveyberenicevicky Kristin Abarca BLUE PRINT CONTROL CLERK-MUSIC JOURNALIST Primary Care Provider Encounter Details Date Type Department Care Team (Latest Contact Info) Description 01/06/2025 9:15 AM EDT - 01/06/2025 11:59 PM EDT Hospital Encounter [facility] Oncology - Radiation Oncology [address] [place] [phone] Discharge Disposition: Still a Patient Social History Tobacco Use Types Packs/Day Years Used Date Smoking Tobacco: Some Days Cigarettes Smokeless Tobacco: Never Alcohol Use Standard Drinks/Week Comments Never 0 (1 standard drink = 0.6 oz pur e alcohol) [facility] Utilities Answer Date Recorded In the past 12 months has e [employer], gas, oil, or water company threatened to [...] Info) Description 01/13/2025 10:30 AM EDT [facility] [address] [place] [phone] 01/14/2025 10:30 AM EDT Appointment [facility] Oncology - Radiation Oncology [address] [place] [phone] 01/15/2025 10:30 AM EDT Appointment [facility] Oncology - Radiation Oncology [address] [place] [phone] 01/19/2025 9:45 AM EDT Appointment [facility] Oncology - Radiation Oncology [address] [place] [phone] 01/19/2025 10:30 AM EDT Appointment [facility] Oncology - Radiation Oncology [address] [place] [phone] 01/20/2025 10:30 AM EDT Appointment [facility] Oncology - Radiation Oncology [address] [place] [phone] 01/21/2025 10:30 AM EDT Appointment [facility] Oncology - Radiation Oncology [address] [place] [phone] 03/04/2025 11:15 AM EDT [facility] - Medical Oncology [address] [place] [address] Guillermo Lundberg MD [address] [facility] [address] [place] [address] documented as of this encounter Goals [...] Associated Diagnosis Comments DAILY RADIATION TREATMENT Routine 01/06/2025 9:39 AM EDT documented in this encounter Results * DAILY RADIATION TREATMENT (01/06/2025 9:39 AM EDT) Course Id C1 VARIAN POCT Course Start Date 11/13/2024 VARIAN POCT First Treatment Date 12/07/2024 VARIAN POCT Last Treatment Date 01/06/2025 VARIAN POCT Elapsed Days 30 VARIAN POCT Reference Point Id Rx Brain VARIAN POCT Dose Given To Date 4,200 VARIAN POCT Session Dose Given 200 VARIAN POCT Plan ID RtTempLobeEd VARIAN POCT Plan Name Rt Temportal Lobe and Edema; IMRT VMAT VARIAN POCT Plan Fractions Treated 21 VARIAN POCT Fractions Prescribed 23 VARIAN POCT Prescribed Dose per Fraction 200 VARIAN POCT Plan Total Prescribed Dose 4,600 VARIAN POCT 01/06/2025 9:39 AM EDT us Not In System Ref Prov RADIATION ONCOLOGY ORDERA BLES Final Result VARIAN POCT documented in this encounter Visit Diagnoses Not on filedocumented in this encounter Care Teams Developer Trading Systems Relationship Specialty Start Date End Date Kristin Gracia, BLUE PRINT CONTROL CLERK-MUSIC JOURNALIST PCP - General Nurse Practitioner 08/28/24 documented as of this encounter
--- OUTSIDE RECORDS SUMMARY | 2025-01-07 09:15 | XMS_ITS | Encounter Summary ---
Author Organization [employer] s tem Address [id number] [address] [place] [address] Care Team Providers Care Millinery Designer Name Role Phone Harveyberenicevicky Kristin Abarca PULLMAN CAR CLERK-VP OF MARKETING Primary Care Provider Encounter Details Date Type Department Care Team (Latest Contact Info) Description 01/07/2025 9:15 AM EDT - 01/07/2025 10:08 AM EDT Hospital Encounter [facility] Oncology - Radiation Oncology [address] [place] [phone] Discharge Disposition: Still a Patient Social History Tobacco Use Types Packs/Day Years Used Date Smoking Tobacco: Some Days Cigarettes Smokeless Tobacco: Never Alcohol Use Standard Drinks/Week Comments Never 0 (1 standard drink = 0.6 oz pur e alcohol) [facility] Utilities Answer Date Recorded In the past 12 months has e [employer], gas, oil, or water company threatened to [...] Info) Description 01/13/2025 10:30 AM EDT [facility] [address] [place] [phone] 01/14/2025 10:30 AM EDT Appointment [facility] Oncology - Radiation Oncology [address] [place] [phone] 01/15/2025 10:30 AM EDT Appointment [facility] Oncology - Radiation Oncology [address] [place] [phone] 01/19/2025 9:45 AM EDT Appointment [facility] Oncology - Radiation Oncology [address] [place] [phone] 01/19/2025 10:30 AM EDT Appointment [facility] Oncology - Radiation Oncology [address] [place] [phone] 01/20/2025 10:30 AM EDT Appointment [facility] Oncology - Radiation Oncology [address] [place] [phone] 01/21/2025 10:30 AM EDT Appointment [facility] Oncology - Radiation Oncology [address] [place] [phone] 03/04/2025 11:15 AM EDT Office Visit [facility] - Medical Oncology [address] [place] [address] [place] [address] [place] [address] [address] [place] [address] documented as of this encounter Goals [...] on filedocumented in this encounter Care Teams Millinery Designer Relationship Specialty Start Date End Date Kristin Gracia APRN-VP OF MARKETING PCP - General Nurse Practitioner 08/28/24 documented as of this encounter
--- OUTSIDE RECORDS SUMMARY | 2025-01-07 10:09 | XMS_ITS | Encounter Summary ---
Author Organization [employer] s tem Address [id number] [address] [place] [address] Care Team Providers Care Thimble Press Operator Name Role Phone Harveyberenicevicky Kristin Abarca LOTUS NOTES ADMINISTRATOR-STATE DIRECTOR Primary Care Provider Encounter Details Date Type Department Care Team (Latest Contact Info) Description 01/07/2025 10:09 AM EDT - 01/07/2025 11:59 PM EDT Hospital Encounter [facility] Oncology - Radiation Oncology [address] [place] [phone] Discharge Disposition: Still a Patient Social History Tobacco Use Types Packs/Day Years Used Date Smoking Tobacco: Some Days Cigarettes Smokeless Tobacco: Never Alcohol Use Standard Drinks/Week Comments Never 0 (1 standard drink = 0.6 oz pur e alcohol) [facility] Utilities Answer Date Recorded In the past 12 months has e [employer], gas, oil, or water company threatened to [...] Info) Description 01/13/2025 10:30 AM EDT [facility] [address] [place] [phone] 01/14/2025 10:30 AM EDT Appointment [facility] - Radiation Oncology [address] [place] [phone] 01/15/2025 10:30 AM EDT Appointment [facility] Oncology - Radiation Oncology [address] [place] [phone] 01/19/2025 9:45 AM EDT Appointment [facility] Oncology - Radiation Oncology [address] [place] [phone] 01/19/2025 10:30 AM EDT Appointment [facility] - Radiation Oncology [address] [place] [phone] 01/20/2025 10:30 AM EDT Appointment [facility] - Radiation Oncology [address] [place] [phone] 01/21/2025 10:30 AM EDT Appointment [facility] - Radiation Oncology [address] [place] [phone] 03/04/2025 11:15 AM EDT Office [facility] - Medical Oncology [address] [place] [address] Guillermo Lundberg MD [address] [facility] [address] [place] [address] documented as of this encounter Goals [...] Associated Diagnosis Comments DAILY RADIATION TREATMENT Routine 01/07/2025 10:56 AM EDT documented in this encounter Results * DAILY RADIATION TREATMENT (01/07/2025 10:56 AM EDT) Course Id C1 VARIAN POCT Course Start Date 11/13/2024 VARIAN POCT First Treatment Date 12/07/2024 VARIAN POCT Last Treatment Date 01/07/2025 VARIAN POCT Elapsed Days 31 VARIAN POCT Reference Point Id Rx Brain VARIAN POCT Dose Given To Date 4,400 VARIAN POCT Session Dose Given 200 VARIAN POCT Plan ID RtTempLobeEd VARIAN POCT Plan Name Rt Temportal Lobe and Edema; IMRT VMAT VARIAN POCT Plan Fractions Treated 22 VARIAN POCT Fractions Prescribed 23 VARIAN POCT Prescribed Dose per Fraction 200 VARIAN POCT Plan Total Prescribed Dose 4,600 VARIAN POCT 01/07/2025 10:5 6 AM EDT us Not In System Ref Prov RADIATION ONCOLOGY ORDERA BLES Final Result VARIAN POCT documented in this encounter Visit Diagnoses Not on filedocumented in this encounter Care Teams Thimble Press Operator Relationship Specialty Start Date End Date Kristin Gracia, LOTUS NOTES ADMINISTRATOR-STATE DIRECTOR PCP - General Nurse Practitioner 08/28/24 documented as of this encounter
--- OUTSIDE RECORDS SUMMARY | 2025-01-08 09:15 | XMS_ITS | Encounter Summary ---
Author Organization [employer] s tem Address [facility] [place][id number] [address] [place] [address] Care Team Providers Care Gear Repairer Name Role Phone Harveyberenicevicky Kristin Abarca OIL LEASE BROKER-BATTERY ASSEMBLER Primary Care Provider Encounter Details Date Type Department Care Team (Latest Contact Info) Description 01/08/2025 9:15 AM EDT - 01/08/2025 10:18 AM EDT Hospital Encounter [facility] Oncology - Radiation Oncology [address] [place] [phone] Discharge Disposition: Still a Patient Social History Tobacco Use Types Packs/Day Years Used Date Smoking Tobacco: Some Days Cigarettes Smokeless Tobacco: Never Alcohol Use Standard Drinks/Week Comments Never 0 (1 standard drink = 0.6 oz pur e alcohol) [facility] Utilities Answer Date Recorded In the past 12 months has e [employer], gas, oil, or water company threatened to [...] Info) Description 01/13/2025 10:30 AM EDT [facility] [address] [place] [phone] 01/14/2025 10:30 AM EDT Appointment [facility] Oncology - Radiation Oncology [address] [place] [phone] 01/15/2025 10:30 AM EDT Appointment [facility] Oncology - Radiation Oncology [address] [place] [phone] 01/19/2025 9:45 AM EDT Appointment [facility] Oncology - Radiation Oncology [address] [place] [phone] 01/19/2025 10:30 AM EDT Appointment [facility] Oncology - Radiation Oncology [address] [place] [phone] 01/20/2025 10:30 AM EDT Appointment [facility] Oncology - Radiation Oncology [address] [place] [phone] 01/21/2025 10:30 AM EDT Appointment [facility] Oncology - Radiation Oncology [address] [place] [phone] 03/04/2025 11:15 AM EDT Office Visit Meera Albarado [facility] - Medical Oncology [address] [place] [address] [place] [address] [place] [address] [address] [place] [address] documented as of this encounter Goals [...] on filedocumented in this encounter Care Teams Gear Repairer Relationship Specialty Start Date End Date Kristin Gracia APRN-BATTERY ASSEMBLER PCP - General Nurse Practitioner 08/28/24 documented as of this encounter
--- OUTSIDE RECORDS SUMMARY | 2025-01-08 10:19 | XMS_ITS | Encounter Summary ---
Author Organization [employer] s tem Address [id number] [address] [place] [address] Care Team Providers Care Town Marshal Name Role Phone Harveyberenicevicky Kristin Abarca SENIOR DATA MINING ANALYST-SURGICAL ENDOSCOPIST Primary Care Provider Encounter Details Date Type Department Care Team (Latest Contact Info) Description 01/08/2025 10:19 AM EDT - 01/08/2025 11:59 PM EDT Hospital Encounter [facility] Oncology - Radiation Oncology [address] [place] [phone] Discharge Disposition: Still a Patient Social History Tobacco Use Types Packs/Day Years Used Date Smoking Tobacco: Some Days Cigarettes Smokeless Tobacco: Never Alcohol Use Standard Drinks/Week Comments Never 0 (1 standard drink = 0.6 oz pur e alcohol) [facility] Utilities Answer Date Recorded In the past 12 months has e [employer], gas, oil, or water company threatened to [...] Info) Description 01/13/2025 10:30 AM EDT Appointment [facility] On[facility] - Radiation Oncology [address] [place] [phone] 01/14/2025 10:30 AM EDT Appointment [facility] Oncology - Radiation Oncology [address] [place] [phone] 01/15/2025 10:30 AM EDT Appointment [facility] Oncology - Radiation Oncology [address] [place] [phone] 01/19/2025 9:45 AM EDT Appointment [facility] Oncology - Radiation Oncology [address] [place] [phone] 01/19/2025 10:30 AM EDT Appointment [facility] Oncology - Radiation Oncology [address] [place] [phone] 01/20/2025 10:30 AM EDT Appointment [facility] Oncology - Radiation Oncology [address] [place] [phone] 01/21/2025 10:30 AM EDT Appointment [facility] Oncology - Radiation Oncology [address] [place] [phone] 03/04/2025 11:15 AM EDT [facility] Visit [facility] - Medical Oncology [address] [place] [address] Guillermo Lundberg MD [address] [facility] [address] [place] [address] documented as of this encounter Goals [...] Associated Diagnosis Comments DAILY RADIATION TREATMENT Routine 01/08/2025 10:37 AM EDT documented in this encounter Results * DAILY RADIATION TREATMENT (01/08/2025 10:37 AM EDT) Course Id C1 VARIAN POCT Course Start Date 11/13/2024 VARIAN POCT First Treatment Date 12/07/2024 VARIAN POCT Last Treatment Date 01/08/2025 VARIAN POCT Elapsed Days 32 VARIAN POCT Reference Point Id Rx Brain VARIAN POCT Dose Given To Date 4,600 VARIAN POCT Session Dose Given 200 VARIAN POCT Plan ID RtTempLobeEd VARIAN POCT Plan Name Rt Temportal Lobe and Edema; IMRT VMAT VARIAN POCT Plan Fractions Treated 23 VARIAN POCT Fractions Prescribed 23 VARIAN POCT Prescribed Dose per Fraction 200 VARIAN POCT Plan Total Prescribed Dose 4,600 VARIAN POCT 01/08/2025 10:3 7 AM EDT us Not In System Ref Prov RADIATION ONCOLOGY ORDERA BLES Final Result VARIAN POCT documented in this encounter Visit Diagnoses Not on filedocumented in this encounter Care Teams Town Marshal Relationship Specialty Start Date End Date Kristin Gracia, SENIOR DATA MINING ANALYST-SURGICAL ENDOSCOPIST PCP - General Nurse Practitioner 08/28/24 documented as of this encounter
--- OUTSIDE RECORDS SUMMARY | 2025-01-11 10:19 | XMS_ITS | Encounter Summary ---
Author Organization [facility] Address [id number] [address] [place] [address] Care Team Providers Care Biology Adjunct Instructor Name Role Phone Kristin Gracia CARTOGRAPHIC DESIGNER-HOME WEATHERIZING WORKER Primary Care Provider Encounter Details Date Type Department Care Team (Latest Contact Info) Description 01/11/2025 10:19 AM EDT - 01/11/2025 11:59 PM EDT Hospital Encounter [facility] Oncology - Radiation Oncology [address] [place] [phone] GBM (glioblastoma multiforme) ([facility]) (Primary Dx) Discharge Disposition: Still a Patient Social History Tobacco Use Types Packs/Day Years Used Date Smoking Tobacco: Some Days Cigarettes Smokeless Tobacco: Never Alcohol Use Standard Drinks/Week Comments Never 0 (1 standard drink = 0.6 oz pur e alcohol) [facility] Utilities Answer Date Recorded In the past 12 months has [place] [employer], gas, oil, or water [employer] threatened to shut off services in your [...] Sign Reading Time Taken Comments Blood Pressure 146/76 01/11/2025 11:04 AM EDT Pulse 71 01/11/2025 11:04 AM EDT Temperature 36.5 C (97.7 F) 01/11/2025 11:04 AM EDT Respiratory Rate 18 01/11/2025 11:0 4 AM EDT Oxygen Saturation 93% 01/11/2025 11: 04 AM EDT dark nail turkish Inhaled Oxygen Concentration - - Weight - [...] 800-160 mg per tabletIndications:GB M (glioblastoma multiforme) ([facility]) Take 1 tab daily, on Saturday and every week. 60 tablet 1 11/19/2024 temozolomide (TEMODAR) 180 MG chemo capsuleIndications:G BM (glioblastoma multiforme) ([facility]) Take 1 capsule by mouth daily 30 capsule 12/31/2024 traZODone (DESYREL) 50 mg tablet Take 0.5 tablets (25 mg total) by mouth. 02/05/2024 documented as of this encounter Progress Notes * Meera Cope MD - 01/11/2025 11:00 AM EDT RADIATION ONCOLOGY WEEKLY PROGRESS NOTE Date of Service: 01/11/2025 Location: [facility] ON[facility] - RADIATION ONCOLOGY [address] [place] [phone] Patient ID: Yamilka Yates : 1970 Diagnosis: Cancer Staging GBM (glioblastoma multiforme) ([facility]) Staging form: Brain and Spinal Cord, AJCC Version 9 - Clinical stage from 09/23/2024: WHO G4 - Signed by Grey Yo MD on 11/12/2024 Radiation Treatment Information: Radiation Treatments Active Plans Rt Temportal Lobe Boost; IMRT VMAT [RTempLobeBst] Most recent treatment: Dose planned: 200 (fraction 1 on 01/11/2025) Total: Dose planned: 1,400 (7 fractions) Elapsed Days: 35 Reference Points Rx Brain Most recent treatment: Dose given: 200 (on 01/11/2025) Total: Dose given: 4,800 Elapsed Days: 35 Site: rt temporal lobe brain+edema Rad [place] Imaging: Cone Beam CT ENERGY: 10MV TECHNIQUE: IMRT (VMAT) Boost/Additional Site: Boost (Rt Temporal Lobe) Rad [place] Imaging - Boost: Cone Beam CT ENERGY: 10MV TECHNIQUE: IMRT (VMAT) Chemotherapy Update: Previous Chemotherapy Treatment: No Concurrent Chemotherapy Regimen: nNo Plan for post RT Chemotherapy : Yes - Temodar SUBJECTIVE: Patient feels she is doing well and making progress. She states she was able to walk 100 ft yesterday without assistance during her physical therapy. The day before she only walked 54 ft. She states that she sometimes has difficulty keeping track of what day it is, but this may simply be the fact that she is in a nursing facility and really doesn't have to keep track of the days. When she learnedI was originally from [place] but now am in [place], she immediately stated [place] is [place] and that she is originally from the [facility]. OBJECTIVE: Very pleasant white female who appears to be getting better every week. She has come a long way since she 1st presented to our facility.. She is alert, affect is appropriate, and her insight appears pretty good. Labs: Lab Results Component Value Date WBC [...] Take 1 capsule by mouth daily, Disp: 30 capsule, Rfl: 0 traZODone (DESYREL) 50 mg tablet, Take 0.5 tablets (25 mg total) by mouth., Disp: , Rfl: Pain Score: 0 Pain Plan: None needed Immunizations/Smoking Status: No [...] bed <50% of the day Vital Signs: BP 146/76 Pulse 71 Temp 36.5 ??C (97.7 ??F) Resp 18 SpO2 93% Comment: dark nail turkish Wt Readings from Last 5 Encounters: 12/24/24 128.4 kg (283 lb) 12/10/24 128.6 kg (283 lb 9.6 oz) 11/13/24 127.4 kg (280 lb 12.8 oz) 11/13/24 114.8 kg (253 lb) 11/13/24 127.4 kg (280 lb 12.8 oz) ASSESSMENT PLAN: Patient continues to improve. She has started her boost treatment today and has 6 fractions remaining. We will continue with her treatment as planned. Temodar is planned for her by after completion of her radiation therapy. MEERA COPE MD January 11, 2025, 3:00 PM Medications Prescribed: Medication List None Other Orders Placed: Orders Placed This Encounter Procedures DAILY RADIATION TREATMENT documented in this encounter Plan of Treatment Upcoming Encounters Date Type Department Care Team (Late st Contact Info) Description 01/13/2025 10:30 AM EDT [facility] [address] [place] [phone] 01/14/2025 10:30 AM EDT Appointment [facility] On[facility] - Radiation Oncology [address] [place] [phone] 01/15/2025 10:30 AM EDT Appointment [facility] - Radiation Oncology [address] [place] [phone] 01/19/2025 9:45 AM EDT Appointment [facility] - Radiation Oncology [address] [place] [phone] 01/19/2025 10:30 AM EDT Appointment [facility] On[facility] - Radiation Oncology [address] [place] [phone] 01/20/2025 10:30 AM EDT Appointment [facility] On[facility] - Radiation Oncology [address] [place] [phone] 01/21/2025 10:30 AM EDT [facility]ment [facility] [address] [place] [phone] 03/04/2025 11:15 AM EDT Office Visit [facility] - Medical Oncology [address] [place] [phone] Guillermo Lundberg MD [address] [place] [address] [address] [place], [place] [phone] documented as of this encounter Goals Goal [...] Associated Diagnosis Comments DAILY RADIATION TREATMENT Routine 01/11/2025 10:54 AM EDT documented in this encounter Results * DAILY RADIATION TREATMENT (01/11/2025 10:54 AM EDT) Course Id C1 VARIAN POCT Course Start Date 11/13/2024 VARIAN POCT First Treatment Date 12/07/2024 VARIAN POCT Last Treatment Date 01/11/2025 VARIAN POCT Elapsed Days 35 VARIAN POCT Reference Point Id Rx Brain VARIAN POCT Dose Given To Date 4,800 VARIAN POCT Session Dose Given 200 VARIAN POCT Plan ID RTempLobeBst VARIAN POCT Plan Name Rt Temportal Lobe Boost; IMRT VMAT VARIAN POCT Plan Fractions Treated 1 VARIAN POCT Fractions Prescribed 7 VARIAN POCT Prescribed Dose per Fraction 200 VARIAN POCT Plan Total Prescribed Dose 1,400 VARIAN POCT 01/11/2025 10:5 4 AM EDT us Not In System Ref Prov RADIATION ONCOLOGY ORDERA BLES Final Result VARIAN POCT documented in this encounter Visit Diagnoses Diagnosis GBM (glioblastoma multiforme) ([facility])- Primary Malignant neoplasm of brain, unspecified site documented in this encounter Care Teams Biology Adjunct Instructor Relationship Specialty Start Date End Date Kristin Gracia, CARTOGRAPHIC DESIGNER-HOME WEATHERIZING WORKER PCP - General Nurse Practitioner 08/28/24 documented as of this encounter
--- OUTSIDE RECORDS SUMMARY | 2025-01-12 10:10 | XMS_ITS | Encounter Summary ---
Author Organization [employer] [facility] tem Address [id number] [address] [place] [address] Care Team Providers Care Medical Biller/Coder Name Role Phone Harveyberenicevicky Kristin Abarca APRN-CHANGE MANAGEMENT LEAD Primary Care Provider Encounter Details Date Type Department Care Team (Late st Contact Info) Description 01/12/2025 10:10 AM EDT Hospital Encounter [facility] Oncology - Radiation Oncology [address] [place] [address] Social History Tobacco Use Types Packs/Day Years Used Date Smoking Tobacco: Some Days Cigarettes Smokeless Tobacco: Never Alcohol Use Standard Drinks/Week Comments Never 0 (1 standard drink = 0.6 oz pur e alcohol) [facility] Utilities Answer Date Recorded In [...] Info) Description 01/13/2025 10:30 AM EDT [facility] [address] [place] [phone] 01/14/2025 10:30 AM EDT Appointment [facility] Oncology - Radiation Oncology [address] [place] [phone] 01/15/2025 10:30 AM EDT Appointment [facility] Oncology - Radiation Oncology [address] [place] [phone] 01/19/2025 9:45 AM EDT App[facility]ment [facility] - Radiation On[facility] [address] [place] [phone] 01/19/2025 10:30 AM EDT [facility] [place] Oncology [address] [place] [phone] 01/20/2025 10:30 AM EDT Appointment [facility] Oncology - Radiation Oncology [address] [place] [phone] 01/21/2025 10:30 AM EDT Appointment [facility] Oncology - Radiation Oncology [address] [place] [phone] 03/04/2025 11:15 AM EDT Office Visit [facility] - Medical Oncology [address] [place] [phone] Guillermo Lundberg MD [address] [place] [address] [address] [place] [address] documented as of this encounter Goals Goal [...] Associated Diagnosis Comments DAILY RADIATION TREATMENT Routine 01/12/2025 11:00 AM EDT documented in this encounter Results * DAILY RADIATION TREATMENT (01/12/2025 11:00 AM EDT) Course Id C1 VARIAN POCT Course Start Date 11/13/2024 VARIAN POCT First Treatment Date 12/07/2024 VARIAN POCT Last Treatment Date 01/12/2025 VARIAN POCT Elapsed Days 36 VARIAN POCT Reference Point Id Rx Brain VARIAN POCT Dose Given To Date 5,000 VARIAN POCT Session Dose Given 200 VARIAN POCT Plan ID RTempLobeBst VARIAN POCT Plan Name Rt Temportal Lobe Boost; IMRT VMAT VARIAN POCT Plan Fractions Treated 2 VARIAN POCT Fractions Prescribed 7 VARIAN POCT Prescribed Dose per Fraction 200 VARIAN POCT Plan Total Prescribed Dose 1,400 VARIAN POCT 01/12/2025 11:0 0 AM EDT us Not In System Ref Prov RADIATION ONCOLOGY ORDERA BLES Final Result VARIAN POCT documented in this encounter Visit Diagnoses Not on filedocumented in this encounter Care Teams Medical Biller/Coder Relationship Specialty Start Date End Date Kristin Gracia, OFFICE AIDE-CHANGE MANAGEMENT LEAD PCP - General Nurse Practitioner 08/28/24 documented as of this encounter
--- OUTSIDE RECORDS SUMMARY | 2025-01-12 11:46 | XMS_ITS | Encounter Summary ---
Author Organization [facility] Address [facility] [place] [address] Care Team Providers Care Dry Food Products Mixer Name Role Phone Frances Hills (Rn) heat treating operator Provider Valdez Bhandari MD Primary Care Provider [phone] Dian Smith PA-C Unavailable [phone] Malinda Lopez APRN.[facility] Unavailable + [phone] Source Comments In the event this information is protected by the Federal Confidentiality of Alcohol and Drug AbusePatient Records regulations: The Federal rules restrict any use of the information to criminally investigate or prosecute any alcohol or drug abuse patient.[facility] Encounter Details Date Type Department Care Team (Late st Contact Info) Description 08/03/2020 [facility] [address] [place] [address] Aylin Garrison PA-C [address] [place] [address] RE: Non-Urgent Medical Question Social History Tobacco Use Types Packs/Day Years Used Date Smoking Tobacco: Former Cigarettes 1 20 0 12/13/1996 - 12/13/2016 Smokeless Tobacco: Never Comments:plans to try to fredy t at some point but not ready. Alcohol Use Standard Drinks/Week Comments Yes 0 (1 standard drink = 0.6 oz pur e alcohol) rare Social Connection and Isolation Panel Answer Date Recorded In a typical week, how many times do you talk on the phone with family, friends, or neighbors? Once a week 08/02/2020 How often do you get together with friends or re latives? Never 08/02/2020 How often do you attend roman catholic or confucianism serv ices? Never 08/02/2020 Do [...] Answer Date Recorded PHQ-2 score 3 08/02/2020 [facility] of Occupat ional Health - Occupational Stress [...] in a senior care (including now)? No 08/02/2020 Area Deprivation Index Answer Date Chris rded National Score (1-100), lower number is lower ri sk Not on file 04/27/2020 State Score (1-10), lower number is lower risk N ot on file 04/27/2020 Data from: https://www.neighborhoodatlas.medicine.[facility].edu/. Last address used for calculation Not [...] as of this encounter Care Teams Dry Food Products Mixer Relationship Specialty Start Date End Date HillsAugust (Rn), RN PCP - General 12/06/17 10/31/20 Valdez Acosta MD [address] [place] [address] PCP - General Internal Medicine 11/01/20 Dian Smith PA-C [address] [place] [address] Machine Puller And Laster Internal Medicine 04/26/24 05/21/24 Malinda Lopez, DATA MANAGEMENT CONSULTANT.GENERAL FARM MANAGER [address] [place] [address] [place] [address] Machine Puller And Laster Family Medicine 04/26/24 documented as of this encounter
--- OUTSIDE RECORDS SUMMARY | 2025-01-12 11:46 | XMS_ITS | Encounter Summary ---
Author Organization [facility] Address [address] [place] [address] Care Team Providers Care Brim Stretcher Name Role Phone Frances Hills (Rn) survey rodman Provider Valdez Bhandari MD Primary Care Provider [phone] Dian Smith PA-C Unavailable [phone] Malinda Lopez APRN.[facility] Unavailable + [phone] Source Comments In the event this information is protected by the Federal Confidentiality of Alcohol and Drug AbusePatient Records regulations: The Federal rules restrict any use of the information to criminally investigate or prosecute any alcohol or drug abuse patient.[facility] Encounter Details Date Type Department Care Team (Late st Contact Info) Description 07/29/2020 [facility] [address] [place] [address] Aylin Garrison PA-C [address] [place] [address] RE: Upcoming Appointment Question Social History [...] Never 08/02/2020 How often do you attend protestant or restorationism serv ices? Never 08/02/2020 Do you belong to any clubs o r organizations such as protestant groups, unions, fraternal or athletic groups, or [...] Answer Date Recorded PHQ-2 score 3 08/02/2020 [facility] of Occupat ional Health - [...] N ot on file 04/27/2020 Data from: https://www.neighborhoodatlas.medicine.[facility].edu/. Last address used for calculation Not [...] documented as of this encounter Care Teams Brim Stretcher Relationship Specialty Start Date End Date August (Rn), RN PCP - General 12/06/17 10/31/20 Valdez Acosta MD [address] [place] [address] PCP - General Internal Medicine 11/01/20 Dian Smith PA-C [address] [place] [address] Solutions Architect Consultant Internal Medicine 04/26/24 05/21/24 Malinda Lopez APRN.ANIMAL PHYSIOLOGIST [address] [place] [address] Solutions Architect Consultant Family Medicine 04/26/24 documented as of this encounter
--- OUTSIDE RECORDS SUMMARY | 2025-01-12 11:46 | XMS_ITS | Encounter Summary ---
Author Organization [facility] Address [address] [place] [address] Care Team Providers Care Tassel Snipper Name Role Phone HarveyKristin yu STOCK FITTER Unavailable [phone] Maxim Lanza MD Primary Care Provider [phone] Encounter Details Date Type Department Care Team (Late st Contact Info) Description 09/15/2024 [facility] [address] [place] [address] Unallocated, Noms Provider, [address] [facility] [place], [place] [phone] Social History Tobacco Use Types Packs/Day Years [...] How often do you attend chur or advent services? 1 to 4 times per year [...] Patient Health Questionnaire-2 Score 6 05/18/2024 [facility] of Occupat [...] documented as of this encounter Care Teams Tassel Snipper Relationship Specialty Start Date End Date Maxim Lanza MD [address] [place] [address] PCP - General Family Medicine 07/15/23 Kristin Gracia NP [address] [place] [phone] Primary Care Provider Family Medicine 05/20/22 documented as of this encounter
--- OUTSIDE RECORDS SUMMARY | 2025-01-12 11:46 | XMS_ITS | Encounter Summary ---
Author Organization [facility] Address [facility] [place] [address] Care Team Providers Care Exhibit Builder Name Role Phone Valdez Acosta MD Primary Care Provider [phone] Dian Smith PA-C Unavailable [phone] Malinda Lopez INSULATION EXTRUDER OPERATOR.HAND ENGRAVER Unavailable + [phone] Source Comments In the event this information is protected by the Federal Confidentiality of Alcohol and Drug AbusePatient Records regulations: The Federal rules restrict any use of the information to criminally investigate or prosecute any alcohol or drug abuse patient.[facility] Encounter Details Date Type Department Care Team (Late st Contact Info) Description 06/13/2021 Patient [facility] [address] [place] [phone] Gi Khan APRN.HAND ENGRAVER [address] [place] [address] tc Social History Tobacco Use [...] Never 08/02/2020 How often do you attend temple or scientologist serv ices? Never 08/02/2020 Do [...] Answer Date Recorded PHQ-2 score 5 10/30/2020 [facility] of Occupat ional Health [...] N ot on file 04/27/2020 Data from: https://www.neighborhoodatlas.medicine.[facility].edu/. Last address used for calculation [...] 10/29/2014 10:13 AM BARBIT Treasure Broussard MA * Do you have [...] on filedocumented in this encounter Care Teams Exhibit Builder Relationship Specialty Start Date End Date Valdez Acosta MD [address] [place] [address] PCP - General Internal Medicine 11/01/20 Dian Smith PA-C [address] [place] [address] Bindery Cutter Operator Internal Medicine 04/26/24 05/21/24 Malinda Lopez, INSULATION EXTRUDER OPERATOR.HAND ENGRAVER [address] [place] [address] Bindery Cutter Operator Family Medicine 04/26/24 documented as of this encounter
--- OUTSIDE RECORDS SUMMARY | 2025-01-12 11:46 | XMS_ITS | Encounter Summary ---
Author Organization [facility] Address [facility] [place] [address] Care Team Providers Care Steamboat Captain Name Role Phone Valdez Acosta MD Primary Care Provider [phone] Dian Smith PA-C Unavailable [phone] Malinda Lopez APRN.OIL FIRE SPECIALIST Unavailable + [phone] Source Comments In the event this information is protected by the Federal Confidentiality of Alcohol and Drug AbusePatient Records regulations: The Federal rules restrict any use of the information to criminally investigate or prosecute any alcohol or drug abuse patient.[facility] Encounter Details Date Type Department Care Team (Late st Contact Info) Description 04/22/2021 Patient Msg Neurology [address] [place] [phone] Provider, [facility] Appointment with Aylin Garrison Social [...] How often do you attend temple or religion serv ices? Never 08/02/2020 Do [...] Answer Date Recorded PHQ-2 score 5 10/30/2020 [facility] - Occupational Stress Questionnaire Answer Date [...] N ot on file 04/27/2020 Data from: https://www.neighborhoodatlas.medicine.[facility].edu/. Last address used for calculation Not on [...] on filedocumented in this encounter Care Teams Steamboat Captain Relationship Specialty Start Date End Date Valdez Acosta MD [address] [place] [address] PCP - General Internal Medicine 11/01/20 Dian Smith PA-C [address] [place] [address] Collar Padder Blindstitch Internal Medicine 04/26/24 05/21/24 Malinda Lopez APRN.OIL FIRE SPECIALIST [address] [place] [address] Collar Padder Blindstitch Family Medicine 04/26/24 documented as of this encounter
--- OUTSIDE RECORDS SUMMARY | 2025-01-12 11:46 | XMS_ITS | Encounter Summary ---
Author Organization [facility] Address [address] [place] [address] Care Team Providers Care Sales And Marketing Coordinator Name Role Phone Valdez Acosta MD Primary Care Provider [phone] Dian Smith PA-C Unavailable + [phone] Malinda Lopez APRN.[facility] Unavailable + [phone] Source Comments In the event this information is protected by the Federal Confidentiality of Alcohol and Drug AbusePatient Records regulations: The Federal rules restrict any use of the information to criminally investigate or prosecute any alcohol or drug abuse patient.[facility] Encounter Details Date Type Department Care Team (Late st Contact Info) Description 02/20/2022 Patient Msg Neuropyschology [address] [place] [address] Leslie Dailey, PhD [address] [place] [address] Appointment Cancellation Request Social History Tobacco Use [...] often do you attend roman catholic or holiness serv ices? Never 08/02/2020 Do [...] Answer Date Recorded PHQ-2 score 5 09/15/2021 [facility] Occupat ional Health [...] N ot on file 11/14/2021 Data from: https://www.neighborhoodatlas.medicine.[facility].edu/. Last address used for calculation [address] 11/14/2021 Education Answer Date Recorded [...] on filedocumented in this encounter Care Teams Sales And Marketing Coordinator Relationship Specialty Start Date End Date Valdez Acosta MD [address] [place] [address] PCP - General Internal Medicine 11/01/20 Dian Smith PA-C [address] [place] [address] Agricultural Mechanic Internal Medicine 04/26/24 05/21/24 Malinda Lopez APRN.GAMBLING SUPERVISOR [address] [place] [address] Agricultural Mechanic Family Medicine 04/26/24 documented as of this encounter
--- OUTSIDE RECORDS SUMMARY | 2025-01-12 11:46 | XMS_ITS | Encounter Summary ---
Author Organization [facility] Address [facility] [place] [address] Care Team Providers Care Farm Management Agent Name Role Phone Frances Hills (Rn) online community manager Provider Valdez Bhandari MD Primary Care Provider [phone] Dian Smith PA-C Unavailable [phone] Malinda Lopez APRN.[facility] Unavailable + [phone] Source Comments In the event this information is protected by the Federal Confidentiality of Alcohol and Drug AbusePatient Records regulations: The Federal rules restrict any use of the information to criminally investigate or prosecute any alcohol or drug abuse patient.[facility] Encounter Details Date Type Department Care Team (Late st Contact Info) Description 09/15/2020 [facility] [address] [place] [address] Aylin Garrison PA-C [address] [place] [address] RE: Non-Urgent Medical Question Social History [...] often do you attend jehovah's witness or druze serv ices? Never 08/02/2020 Do you belong [...] Answer Date Recorded PHQ-2 score 3 08/02/2020 [facility] of Occupat ional Health - Occupational Stress [...] on filedocumented in this encounter Care Teams Farm Management Agent Relationship Specialty Start Date End Date HillsAugust (Rn), RN PCP - General 12/06/17 10/31/20 Valdez Acosta MD [address] [place] [address] PCP - General Internal Medicine 11/01/20 Dian Smith PA-C [address] [place] [address] Home Visitor Internal Medicine 04/26/24 05/21/24 Malinda Lopez, INTERNET SITE DESIGNER.ASIAN ART CURATOR [address] [place] [address] Home Visitor Family Medicine 04/26/24 documented as of this encounter
--- OUTSIDE RECORDS SUMMARY | 2025-01-12 11:46 | XMS_ITS | Encounter Summary ---
Author Organization [facility] Address [facility] [place] [address] Care Team Providers Care Chisel Mortiser Operator Name Role Phone Kirk Wyatt Segundo Primary Care Provider Frances Hills (Rn) rip machine operator Provider Valdez Bhandari MD Primary Care Provider [phone] Dian Smith PA-C Unavailable + [phone] Malinda Lopez APRN.RESTORATIVE REHAB AIDE Unavailable + [phone] Source Comments In the event this information is protected by the Federal Confidentiality of Alcohol and Drug AbusePatient Records regulations: The Federal rules restrict any use of the information to criminally investigate or prosecute any alcohol or drug abuse patient.[facility] Encounter Details Date Type Department Care Team (Late st Contact Info) Description 03/03/2014 Patient Msg Medical Records [address] [place] [id number] Provider, Ccf labs and office visit Social [...] documented as of this encounter Care Teams Chisel Mortiser Operator Relationship Specialty Start Date End Date Wyatt Bradley PCP - General Internal Medicine 05/21/12 12/05/17 Frances Hills (Rn), RN PCP - General 12/06/17 10/31/20 Valdez Acosta MD [address] [place] [address] PCP - General Internal Medicine 11/01/20 Dian Smith PA-C [address] [place] [address] Morning Nanny Internal Medicine 04/26/24 05/21/24 Malinda Lopez, SENIOR ADMINISTRATOR SUPPORT.RESTORATIVE REHAB AIDE [address] [place] [address] Morning Nanny Family Medicine 04/26/24 documented as of this encounter
--- OUTSIDE RECORDS SUMMARY | 2025-01-12 11:46 | XMS_ITS | Encounter Summary ---
Author Organization [facility] Address [facility] [place] [address] Care Team Providers Care Carcass Washer Name Role Phone Frances Hills (Rn) brand specialist Provider Valdez Bhandari MD Primary Care Provider [phone] Dian Smith PA-C Unavailable + [phone] Malinda Lopez APRN.[facility] Unavailable + [phone] Source Comments In the event this information is protected by the Federal Confidentiality of Alcohol and Drug AbusePatient Records regulations: The Federal rules restrict any use of the information to criminally investigate or prosecute any alcohol or drug abuse patient.[facility] Encounter Details Date Type Department Care Team (Late st Contact Info) Description 10/19/2020 [facility] [address] [place] [address] Aylin Garrison PA-C [address] [place] [address] RE: Non-Urgent Medical Question Social History [...] Never 08/02/2020 How often do you attend anabaptism or congregational serv ices? Never 08/02/2020 Do you belong to any clubs o r organizations such as anabaptism groups, unions, fraternal or athletic groups, or [...] Answer Date Recorded PHQ-2 score 3 08/02/2020 [facility] [place] of Occupat ional Health - Occupational Stress [...] on file 04/27/2020 Data from: https://www.neighborhoodatlas.medicine.[facility].edu/. Last address used for calculation [...] Author No 10/29/2014 10:13 AM EDT Treasure Brousasrd MA * Do you have serious difficulty walking or climbing stairs? Answer Date of Assessment Author No 10/29/2014 10:13 AM EDTreasure Messer MA * Do you have difficulty dressing [...] on filedocumented in this encounter Care Teams Carcass Washer Relationship Specialty Start Date End Date August (Rn), RN PCP - General 12/06/17 10/31/20 Valdez Acosta MD [address] [place] [address] PCP - General Internal Medicine 11/01/20 Dian Smith PA-C [facility] [place] [address] Etl Lead Internal Medicine 04/26/24 05/21/24 Malinda Lopez, DEPUTY CHIEF EXECUTIVE.MAINTENANCE MECHANIC ENGINE [address] [place] [address] Etl Lead Family Medicine 04/26/24 documented as of this encounter
--- OUTSIDE RECORDS SUMMARY | 2025-01-12 11:46 | XMS_ITS | Encounter Summary ---
Author Organization [facility] Address [facility] [place] [address] Care Team Providers Care Computer Programming Professor Name Role Phone Kirk Wyatt Segundo Primary Care Provider Frances Hills (Rn) automation application engineer Provider Valdez Bhandari MD Primary Care Provider [phone] Dian Smith PA-C Unavailable + [phone] Malinda Lopez APRN.SOCIAL WELFARE RESEARCH WORKER Unavailable + [phone] Source Comments In the event this information is protected by the Federal Confidentiality of Alcohol and Drug AbusePatient Records regulations: The Federal rules restrict any use of the information to criminally investigate or prosecute any alcohol or drug abuse patient.[facility] Encounter Details Date Type Department Care Team (Late st Contact Info) Description 08/30/2016 Patient Msg Medical Records [address] [place] [address] Provider, [facility]cf Labs Social History Tobacco Use [...] documented as of this encounter Care Teams Computer Programming Professor Relationship Specialty Start Date End Date Wyatt Bradley PCP - General Internal Medicine 05/21/12 12/05/17 Frances Hills (Rn), RN PCP - General 12/06/17 10/31/20 Valdez Acosta MD [address] [place] [address] PCP - General Internal Medicine 11/01/20 Dian Smith PA-C [address] [place], [place] [phone] Car Dealer Internal Medicine 04/26/24 05/21/24 Malinda Lopez, SECRETARY ADMINISTRATIVE ASSISTANT.[facility] [address] [place] [address] [phone] Car Dealer Family Medicine 04/26/24 documented as of this encounter
--- OUTSIDE RECORDS SUMMARY | 2025-01-12 11:46 | XMS_ITS | Encounter Summary ---
Author Organization [facility] Address [address] [place] [address] Care Team Providers Care Research And Development Specialist Name Role Phone Valdez Acosta MD Primary Care Provider [phone] Dian Smith PA-C Unavailable + [phone] Malinda Lopez APRN.EXCELSIOR CUTTER Unavailable + [phone] Source Comments In the event this information is protected by the Federal Confidentiality of Alcohol and Drug AbusePatient Records regulations: The Federal rules restrict any use of the information to criminally investigate or prosecute any alcohol or drug abuse patient.[facility] Encounter Details Date Type Department Care Team (Late st Contact Info) Description 03/15/2021 Patient [facility] [address] [place] [phone] Provider, Ccf Please call to reschedule Follow [...] Never 08/02/2020 How often do you attend baptism or congregation serv ices? Never 08/02/2020 Do [...] ot on file 04/27/2020 Data from: https://www.neighborhoodatlas.medicine.[facility].edu/. Last address used for calculation Not [...] on filedocumented in this encounter Care Teams Research And Development Specialist Relationship Specialty Start Date End Date Valdez Acosta MD [address] [place] [address] PCP - General Internal Medicine 11/01/20 Dian Smith PA-C [address] [place] [address] Reading Assistant Internal Medicine 04/26/24 05/21/24 Malinda Lopez APRN.EXCELSIOR CUTTER [address] [place] [address] Reading Assistant Family Medicine 04/26/24 documented as of this encounter
--- OUTSIDE RECORDS SUMMARY | 2025-01-12 11:46 | XMS_ITS | Clinical Summary ---
Author Organization [facility] Address [address] [place] [address] Care Team Providers Care Chemistry Department Chair Name Role Phone HarveyberenicejesicaKristin beltran MACHINE RUG CLEANER Unavailable [phone] Maxim Lanza MD Primary Care Provider [phone] Allergies No known active allergies Medications ocrelizumab [...] (anxiety) 90 tablet 5 Active nystatin (Mycostatin) 600356 UNIT/GM powderIndication s:Yeast dermatitis Apply topically 2 [...] in 6 weeks Encounter for subsequent [facility] wellness visit (AWV) in Medicare patient 05/18/2024 [...] Encounters Date Type Department Care Team Description 12/30/2024 Abstract [facility] [address] [place] [address] Maxim Lanza MD 12/02/2024 Abstract [facility] [address] [place] [address] Kristin Gracia, MACHINE RUG CLEANER 11/30/2024 Abstract [facility] [address] [place] [address] Kristin Gracia, MACHINE RUG CLEANER 11/30/2024 Abstract [facility] [address] [place] [address] Kristin Gracia, MACHINE RUG CLEANER 11/30/2024 Abstract [facility] [address] [place] [address] Kristin Gracia, MACHINE RUG CLEANER 11/30/2024 Orders Only [facility] [address] [place] [address] 11/30/2024 Abstract [facility] [address] [place] [address] Kristin Gracia, MACHINE RUG CLEANER 11/30/2024 Abstract [facility] [address] [place] [address] Kristin Gracia, MACHINE RUG CLEANER 11/27/2024 Clinisync Result Encounter [facility]OM[facility] External Department Unsolicited Provider, Generic External Data 11/25/2024 Orders Only [facility] [address] [place] [address] 11/24/2024 Telephone [facility] [address] [place] [address] [place] [address] Rio Ennis MD Other (weight caller) 11/07/2024 Clinisync Result Encounter [facility] External Department Unsolicited Rio Ennis MD 11/05/2024 Patient Outreach [address] [place] [address] Blank Rodriguez, DIRECTOR VACCINE 10/28/2024 Patient Outreach [address] [place] [address] Dian Guerin MA 10/23/2024 Patient Outreach [address] [place] [address] Blank Rodriguez, DIRECTOR VACCINE 10/22/2024 Patient Outreach [address] [place] [address] Blank Rodriguez, SHANA 10/20/2024 Abstract [facility] [address] [place] [address] Kristin Gracia, KIRK 10/20/2024 Orders Only [facility] [address] [place] [address] Kristin Gracia, MACHINE RUG CLEANER 10/17/2024 Clinisync Result Encounter [facility] External Department Unsolicited Provider, Generic External Data 10/14/2024 Patient Outreach [address] [place] [address] Blank Rodriguez, DIRECTOR VACCINE from Last 3 Months Immunizations Immunization Administration [...] Recorded Patient Health Questionnaire-2 Score 6 05/18/2024 [facility] of Occupat ional [facility] - Occupational Stress Questionnaire Answer Date [...] 1 VIEW Routine 11/30/2024 9:26 AM EDT [facility]INE [facility] - [facility] Routine 11/27/2024 8:36 PM EDT BLOOD CULTURE 2 Routine 11/27/2024 8:24 PM EDT BLOOD CULTURE 1 Routine 11/27/2024 8:[address] ABDOMEN PELVIS WO IV CONTRAST Routine 11/25/2024 9:08 AM EDT ALL BASIC METABOLIC PANEL Routine 11/07/2024 10:09 AM EDT COMPLETE ECHOCARDIOGRAM DOBUTAMINE STRESS TEST Routine 10/20/2024 8:01 AM EDT URINE CULTURE - FR Routine 10/17/2024 9:45 AM EDT BLOOD CULTURE 2 Routine 10/17/2024 2:55 AM EDT BLOOD CULTURE 1 Routine 10/17/2024 2:47 AM EDT MM TOMOSYNTHESIS SCREENING BI 06/30/2024 11:32 AM EST from Last 3 Months or Most Recently Relevant to Health Maintenance Results * CT HEAD/BRAIN W & WO CONTRAST (11/30/2024 9:28 AM EDT) Anatomical Region Laterality Modality Radiographic Ángela ging [facility] IMG XR PROCEDURES Final Result * XR chest 1 view (11/30/2024 9:26 AM EDT) Anatomical Region Laterality Modality Chest Radiographic Ángela ging [facility] IMG XR PROCEDURES Final Result * (ABNORMAL) [facility]INE CULTURE - [facility] (11/27/2024 8:36 PM EDT) Only the most recent of2 resultswithin the time period is included. [facility] URINE CULTURE - [facility] Urine Culture - [facility] Testing performed at [facility] URINE [facility]ULTURE - [facility] [address] [place] [address] [facility] URINE CULTURE - [facility] O:ENTFAC Isolated [facility] URINE [facility]ULTURE - [facility] Urine Culture - [facility] [place] [facility] URINE CULTURE - [facility] >100,000 CFU/ml [facility] URINE CULTURE - [facility] Organism: 1.1 Antibiotic Interpretation ROSE Status [facility] URINE CULTURE - [facility] Ampicillin S F(S) TB URINE CULTURE - [facility] Daptomycin S F(S) TB URINE CULTURE - [facility] Levofloxacin R F(R) TB URINE CULTURE - [facility] Linezolid S F(S) TB URINE CULTURE - [facility] Nitrofurantoin S F(S) TB URINE CULTURE - FR Penicillin S F(S) TB URINE CULTURE - [facility] Tetracycline R F(R) TB URINE CULTURE - [facility] Vancomycin S F(S) TB URINE CULTURE - [facility] Ciprofloxacin R F(R) TB 11/27/2024 8:36 PM EDT 11/27/2024 8:51 PM EDT [facility] - 12/01/2024 2:33 PM EDT Generic External Data Provider LAB BLOOD ORDERAB LES Final Result Performing Organization Address [facility] Co de Phone Number [facility] * BLOOD CULTURE 2 (11/27/2024 8:24 PM EDT) Only the most recent of2 resultswithin the time period is included. BLOOD CULTURE 2 Blood Culture 2 NG5D NO GROWTH AT 5 DAYS.^NO GROWTH AT 5 DAYS. [facility] 11/27/2024 8:24 PM EDT 11/27/2024 8:33 PM EDT Narrative [facility] - 12/03/2024 1:34 PM EDT RIGHT FOREARM P21 External Data Provider LAB BLOOD ORDERAB LES Final Result Performing Organization Address City/[facility]/ZIP Co de Phone Number [facility] * BLOOD CULTURE 1 (11/27/2024 8:15 PM EDT) Only the most recent of2 resultswithin the time period is included. BLOOD CULTURE 1 Blood Culture 1 NG5D NO GROWTH AT 5 DAYS.^NO GROWTH AT 5 DAYS. [facility] 11/27/2024 8:15 PM EDT 11/27/2024 8:33 PM EDT Narrative [facility] - 12/03/2024 1:34 PM EDT RIGHT AC Generic External Data Provider LAB BLOOD ORDERAB LES Final Result [facility] TB * CT abdomen pelvis wo IV contrast (11/25/2024 9:08 AM EDT) Anatomical Region Laterality Modality Body, Pelvis, Abdomen Computed T omography [facility] IMG CT PROCEDURES Final Result * (ABNORMAL) ALL BASIC METABOLIC PANEL (11/07/2024 10:09 AM EDT) SODIUM 149(H) 136 - 145 mmol/L [facility] POTASSIUM 3.7 3.5 - 5.1 mmol/L [facility] CHLORIDE 108(H) 98 - 107 mmol/L [facility] CARBON DIOXIDE 32.8(H) 21.0 - 32.0 mmol/L [facility] ANION GAP 11.9 [facility] GLUCOSE 99 74 - 106 mg/dL [facility] BLOOD UREA NITROGEN 36.0(H) 7.0 - 18.0 mg/dL [facility] CREATININE 3.05(H) 0.55 - 1.02 mg/dL [facility] EGFR-AF [place] 19(L) >=60 mL/min/1.7 3m 2 TB[facility] EGFR-NON AF [place] 16(L) >=60 mL/min/1.7 3m 2 [facility] BUN CREATININE RATIO 11.8 [facility] CALCIUM 8.5 8.5 - 10.1 mg/dL [facility] 11/07/2024 10:0 9 AM EDT 11/07/2024 11:05 AM EDT Narrative [facility] - 11/07/2024 11:27 AM EDT Rio NICOLEISYNC Final Result [facility] TB * Complete echocardiogram dobutamine stress test (10/20/2024 8:01 AM EDT) Anatomical Region Laterality Modality Ultrasound Kristin Gracia MACHINE RUG CLEANER CV ECHO PROCEDURES Final Result * MM TOMOSYNTHESIS SCREENING BI (06/30/2024 11:32 AM EST) Anatomical Region Laterality Modality Other 06/30/2024 11:3 2 AM EST Narrative 06/30/2024 11:33 [place] [address] Mammography Report Signed Patient: NITHYA VASQUEZ MR#: [id number] : 1970 Acct:[id number] Age/Sex: 54 / F ADM Date: 06/30/24 Loc: MAMMO Attending Dr: Kristin Gracia NP Ordering Physician: Kristin Gracia NP Results: Date of Service: 06/30/24 Follow Up: Procedure(s): MM tomosynthesis screening BI Accession Number(s): [id number] cc: Kristin Gracia NP Patient Name: NITHYA VASQUEZ MR#: [id number] : 1970 Exam Date: 06/30/2024 Ordering Doctor: [...] throat/lung cancer at age 56. LOCATION: [facility] BREAST COMPOSITION: There are scattered areas [...] Dictated By: Rivera Kenny M.D. Signed By: 06/30/241132 DD/ 31 TD/TT: Still Operator Whiskey: Procedure Note Radiology, Radiologist, - 06/30/2024 [address] [place] [id number] Mammography Report Signed Patient: NITHYA VASQUEZ FMR#: [id number] : 1970Acct:[id number] Age/Sex: 54 / FADM Date: 06/30/24 Loc: MAMMO Attending Dr: Kristin Gracia NP Ordering Physician: Kristin Gracia NPResults: Date of Service: 06/30/24Follow Up: Procedure(s): MM tomosynthesis screening BI Accession Number(s): [id number] cc: Kristin Gracia NP Patient Name: NITHYA VASQUEZ MR#: [id number] : 1970 Exam Date: 06/30/2024 Ordering Doctor: RUBINA Gracia SUPERVISOR URANIUM PROCESSING RADIOLOGY REPORT PROCEDURE: MM TOMOSYNTHESIS SCREENING BI COMPARISON: None. INDICATIONS: Screening Calculator Name NCI Breast Cancer Risk Assessment Tool 5 Year Breast Cancer Risk 2.40% Lifetime Breast Cancer Risk 14.80% Personal Breast Cancer No Personal Ovarian Cancer No Treatments None Family Cancers Sister with breast cancer at age 63; Father with throat/lung cancer at age 58. LOCATION: [facility] BREAST COMPOSITION: There are scattered areas [...] M.D. Signed By:06/30/24 1133 DD/ 31 TD/TT: Still Operator Whiskey: Kristin Gracia NP [facility] Final Result from Last 3 Months or Most Recently Relevant to Health Maintenance Insurance MEDICARE [place]ICAID [place] Care Teams Chemistry Department Chair Relationship Specialty Start Date End Date Maxim Lanza MD [address] [place] [phone] PCP - General Family Medicine 07/15/23 Kristin Gracia NP [address] [place] [address] Primary Care Provider Family Medicine 05/20/22
--- OUTSIDE RECORDS SUMMARY | 2025-01-12 11:46 | XMS_ITS | Encounter Summary ---
Author Organization [facility] Address [address] [place] [address] Care Team Providers Care Supervisor Data Processing Name Role Phone HarveyberenicejesicaKristin beltran CULINARY DIRECTOR Unavailable [phone] Maxim Lanza MD Primary Care Provider [phone] Encounter Details Date Type Department Care Team (Late st Contact Info) Description 11/25/2024 Orders Only [facility] [address] [place] [id number] Social History Tobacco Use Types Packs/Day Years [...] often do you attend chur ch or pentecostal services? 1 to 4 times per year [...] Recorded Patient Health Questionnaire-2 Score 6 05/18/2024 [facility] Occupat ional [facility] - Occupational Stress Questionnaire Answer Date [...] Modality Body, Pelvis, Abdomen Computed T omography [facility] CT PROCEDURES Final Result documented in this encounter Visit Diagnoses Not on filedocumented in this encounter Additional Health Concerns Assessment Noted Time PHQ-9 Depression Total Score: 18 05/18/ 024 9:00 AM EST documented as of this encounter Care Teams Supervisor Data Processing Relationship Specialty Start Date End Date Maxim Lanza MD [address] [place] [address] PCP - General Family Medicine 07/15/23 Kristin Gracia NP [address] [place] [address] Primary Care Provider Family Medicine 05/20/22 documented as of this encounter
--- OUTSIDE RECORDS SUMMARY | 2025-01-12 11:46 | XMS_ITS | Encounter Summary ---
Author Organization [facility] Address [facility] [id number] Care Team Providers Care Cold Rolling Coordinator Name Role Phone Kirk Wyatt Segundo Primary Care Provider Frances Hills (Rn) harness placer Provider Valdez Bhandari MD Primary Care Provider [phone] Dian Smith PA-C Unavailable + [phone] Malinda Lopez APRN.GAS ANALYST Unavailable + [phone] Source Comments In the event this information is protected by the Federal Confidentiality of Alcohol and Drug AbusePatient Records regulations: The Federal rules restrict any use of the information to criminally investigate or prosecute any alcohol or drug abuse patient.[facility] Encounter Details Date Type Department Care Team (Late st Contact Info) Description 05/27/2014 Patient Msg Medical Records [address] [place] [address] Provider, Ccf Research Invitation Social History Tobacco [...] documented as of this encounter Care Teams Cold Rolling Coordinator Relationship Specialty Start Date End Date Wyatt Bradley PCP - General Internal Medicine 05/21/12 12/05/17 Frances Hills (Rn), RN PCP - General 12/06/17 10/31/20 Valdez Acosta MD [address] [place] [address] PCP - General Internal Medicine 11/01/20 Dian Smith PA-C [address] [place] [address] Lotteries Agent Internal Medicine 04/26/24 05/21/24 Malinda Lopez, CONSTRUCTION TECHNICIAN.GAS ANALYST [address] [place] [phone] Lotteries Agent Family Medicine 04/26/24 documented as of this encounter
--- OUTSIDE RECORDS SUMMARY | 2025-01-12 11:46 | XMS_ITS | Encounter Summary ---
Author Organization [facility] Address [address] [place] [address] Care Team Providers Care Family Practice Medical Doctor Name Role Phone Valdez Acosta MD Primary Care Provider [phone] Dian Smith PA-C Unavailable + [phone] Malinda Lopez APRN.PASSENGER SERVICE SUPERVISOR Unavailable + [phone] Source Comments In the event this information is protected by the Federal Confidentiality of Alcohol and Drug AbusePatient Records regulations: The Federal rules restrict any use of the information to criminally investigate or prosecute any alcohol or drug abuse patient.[facility] Encounter Details Date Type Department Care Team (Late st Contact Info) Description 11/06/2020 Patient Msg MRI J [address] [place] [address] Provider, Ccf MRI Screening Social [...] Never 08/02/2020 How often do you attend methodist or presybeterian serv ices? Never 08/02/2020 Do you belong to any clubs o r organizations such as methodist groups, unions, fraternal or athletic groups, or [...] Answer Date Recorded PHQ-2 score 5 10/30/2020 [facility] of Occupat [...] N ot on file 04/27/2020 Data from: https://www.neighborhoodatlas.medicine.[facility].edu/. Last address used for calculation Not [...] on filedocumented in this encounter Care Teams Family Practice Medical Doctor Relationship Specialty Start Date End Date Valdez Acosta MD [address] [place] [address] PCP - General Internal Medicine 11/01/20 Dian Smith PA-C [address] [place] [address] Homicide Squad Sergeant Internal Medicine 04/26/24 05/21/24 Malinda Lopez APRN.PASSENGER SERVICE SUPERVISOR [address] [place] [address] Homicide Squad Sergeant Family Medicine 04/26/24 documented as of this encounter
--- OUTSIDE RECORDS SUMMARY | 2025-01-12 11:46 | XMS_ITS | Clinical Summary ---
Author Organization [facility] Address [address] [place] [address] Care Team Providers Care Tub Rider Name Role Phone Valdez Acosta MD Primary Care Provider [phone] Malinda Lopez APRN.HEALTH SCIENCES PROGRAM COORDINATOR Unavailable [phone] Allergies No known active allergies Medications * [...] Never 08/02/2020 How often do you attend taoism or anabaptism serv ices? Never 08/02/2020 Do you belong to any clubs o r organizations such as taoism groups, unions, fraternal or athletic groups, or [...] Answer Date Recorded PHQ-2 score 5 09/05/2023 [facility] - Occupational Stress Questionnaire Answer [...] risk 4 09/20/2022 Data from: https://www.neighborhoodatlas.medicine.[facility].edu/. Last address used for calculation [address] [...] 10/02/2016 Shingrix Vaccine (1 of 2) 2018 Medicare Advantage Annual We llness Visit 05/20/2024 [...] COMP METABOLIC PANEL (05/22/2023 8:10 AM EST) [facility] Protein, Total 7.1 6.3 - 8.0 g/dL 05/22/2023 2:38 PM EST [facility] Albumin 4.0 3.9 - 4.9 g/dL 05/22/2023 2:38 PM EST [facility] Calcium, Total 9.4 8.5 - 10.2 mg/dL 05/22/2023 2:38 PM EST [facility] Bilirubin, Total 0.3 0.2 - 1.3 mg/dL 05/22/2023 2:38 PM EST [facility] Alkaline Phosphatase 90 34 - 123 U/L 05/22/2023 2:38 PM EST [facility] AST 25 13 - 35 U/L 05/22/2023 2:38 PM EST [facility] ALT 23 7 - 38 U/L 05/22/2023 2:38 PM EST [facility] Glucose 88 74 - 99 mg/dL 05/22/2023 2:38 PM [facility] Comment: The [place] Diabetes Association (ADA) provides guidance for cutoff [...] Standards of Medical Care in Diabetes 2016, [place] Diabetes Association. Diabetes Care. 2016.39(Suppl 1). BUN 17 7 - 21 mg/dL 05/22/2023 2:38 PM [facility] Creatinine 1.04(H) 0.58 - 0.96 mg/dL 05/22/2023 2:38 PM [facility] Sodium 143 136 - 144 mmol/L 05/22/2023 2:38 PM [facility] Potassium 3.7 3.7 - 5.1 mmol/L 05/22/2023 2:38 PM EST [facility] Chloride 103 97 - 105 mmol/L 05/22/2023 2:38 PM EST [facility] CO2 27 22 - 30 mmol/L 05/22/2023 2:38 PM EST [facility] Anion Gap 13 9 - 18 mmol/L 05/22/2023 2:38 PM EST [facility] Estimated Glomerular Filtration Rate 64 >=60 mL/min/1. 73m 05/22/2023 2:38 PM EST [facility] Comment:Estimated Glomerular Filtration Rate (eGFR) [...] us Aylin Garrison PA-C LABORATORY Final Result [facility] [address] [place] [address], * (ABNORMAL) LIPID PANEL BASIC (09/18/2021 8:07 AM EDT) Cholesterol, Total 142 <200 mg/dL 09/18/2021 4:40 PM EDT [facility] Comment: <200 mg/dL, Desirable 200-239 mg/dL, Borderline high >239 mg/dL, High Triglyceride 157(H) <150 mg/dL 09/18/2021 4:40 PM EDT [facility] Comment: <150 mg/dL, Normal 150-199 mg/dL, Borderline high 200-499 mg/dL, High >499 mg/dL, Very high HDL Cholesterol 39(L) >39 mg/dL 4:40 PM EDT [facility] Comment: 40-59 mg/dL, Acceptable >59 mg/dL, High: Negative risk factor for coronary heart disease <40 mg/dL, Low: Positive risk factor for coronary heart disease Non HDL Cholesterol 103 <130 mg/dL 09/18/2021 4:40 PM EDT [facility] Comment: <130 mg/dL, Optimal 130-159 mg/dL, Near optimal/above optimal 160-189 mg/dL, Borderline high 190-219 mg/dL, High >219 mg/dL, Very high Secondary prevention optimal non HDL Cholesterol levels are recommended to be <100 mg/dL Fasting Time 14 hours hrs 09/18/2021 4:40 PM EDT [facility] VLDL Cholesterol 31(H) <30 mg/dL 09/19/19 4:40 PM EDT [facility] TC:HDL Ratio 3.64 <5.10 09/18/2021 4:40 PM EDT [facility] LDL Cholesterol, Calculated 72 <100 mg/dL 09/18/2021 4:40 PM EDT [facility] Comment: <100 mg/dL, Optimal 100-129 mg/dL, Near optimal/above optimal 130-159 mg/dL, Borderline high 160-189 mg/dL, High >189 mg/dL, Very high Secondary prevention optimal LDL Cholesterol levels are recommended to be < 70 mg/dL LDL:HDL Ratio 1.85 <2.54 09/18/2021 4:40 PM EDT [facility] Comment: Reference: 1. National Cholesterol Education Program ATP III Guideline At-A-Glance Quick Desk Reference: National Heart, Lung, and Blood [place] [facility]. National Institutes of Health. 2001: NIH Publication No. 01-3305. 2. An International Atherosclerosis Society position paper: global recommendations for the management of dyslipidemia: executive summary, Atherosclerosis. 2014: 232(2):410-413. Blood BLOOD SPECIMEN / Unknown Venipuncture / Unknown 09/18/2021 8:07 AM EDT 09/18/2021 3:12 PM EDT us Aylin Garrison PA-C LABORATORY Final Result [facility] [address] [facility] [address] [address], [place] * HEP REMOTE PANEL BL (07/15/2020 11:23 AM EST) Hep B Core Ab, Total Negative Negative 07/15/2020 7:02 PM EST [facility] Hep C Antibody IA Negative Negative 07/15/2020 7:03 PM EST [facility] HBsAg Negative Negative 07/15/2020 7:03 PM EST [facility] Hep B Surface Ab, Qual Negative Negative 07/15/2020 7:03 PM EST [facility] Comment:NEGATIVE Blood BLOOD SPECIMEN / Unknown 07/15/2020 11:23 AM EST 07/15/2020 11:25 AM EST us Prosper Zheng MD, PhD LABORATORY Final Resu lt [facility] [address] [place] [address] [facility] [address] [place] [address] from Last 3 Months or Most Recently Relevant to Health Maintenance Insurance [facility] MEDICARE PPO Care Teams Tub Rider Relationship Specialty Start Date End Date Valdez Acosta MD [address] [place] [address] PCP - General Internal Medicine 11/01/20 Malinda Lopez, COMMUNICATION EQUIPMENT REPAIRER.[facility] [address] [place] [address] Exhibition Organiser Family Medicine 04/26/24
--- OUTSIDE RECORDS SUMMARY | 2025-01-12 11:46 | XMS_ITS | Encounter Summary ---
Author Organization [facility] Address [facility] [place] [address] Care Team Providers Care Mmi Teacher Name Role Phone Valdez Acosta MD Primary Care Provider [phone] Dian Smith PA-C Unavailable [phone] Malinda Lopez APRN.BEHAVIORAL SERVICES TECH Unavailable + [phone] Source Comments In the event this information is protected by the Federal Confidentiality of Alcohol and Drug AbusePatient Records regulations: The Federal rules restrict any use of the information to criminally investigate or prosecute any alcohol or drug abuse patient.[facility] Encounter Details Date Type Department Care Team (Late st Contact Info) Description 09/08/2021 Patient Msg Neurology [address] [id number] Provider, Ccskyler For infusion approval you needed [...] Never 08/02/2020 How often do you attend orthodox or mormonism serv ices? Never 08/02/2020 Do you belong to any clubs o r organizations such as orthodox groups, unions, fraternal or athletic groups, [...] Answer Date Recorded PHQ-2 score 5 10/30/2020 [facility] of Occupat ional Health - [...] N ot on file 04/27/2020 Data from: https://www.neighborhoodatlas.medicine.[facility].edu/. Last address used for calculation Not [...] on filedocumented in this encounter Care Teams Mmi Teacher Relationship Specialty Start Date End Date Valdez Acosta MD [address] [place] [address] PCP - General Internal Medicine 11/01/20 Dian Smith PA-C [address] [place] [address] Blender Helper Internal Medicine 04/26/24 05/21/24 Malinda Lopez APRN.BEHAVIORAL SERVICES TECH [address] [place] [address] Blender Helper Family Medicine 04/26/24 documented as of this encounter
--- OUTSIDE RECORDS SUMMARY | 2025-01-12 11:46 | XMS_ITS | Encounter Summary ---
Author Organization [facility] Address [facility] [place] [address] Care Team Providers Care Sawmill Or Timber Yard Worker Name Role Phone Frances Hills (Rn) needle loom tender Provider Valdez Bhandari MD Primary Care Provider [phone] Dian Smith PA-C Unavailable [phone] Malinad Lopez APRN.[facility] Unavailable + [phone] Source Comments In the event this information is protected by the Federal Confidentiality of Alcohol and Drug AbusePatient Records regulations: The Federal rules restrict any use of the information to criminally investigate or prosecute any alcohol or drug abuse patient.[facility] Encounter Details Date Type Department Care Team (Late st Contact Info) Description 08/03/2020 [facility] [address] [place] [address] Aylin Garrison PA-C [address] [place] [address] RE: Non-Urgent Medical Question Social History [...] How often do you attend lutheran or sikh serv ices? Never 08/02/2020 Do [...] Answer Date Recorded PHQ-2 score 3 08/02/2020 [facility] of Occupat ional Health - Occupational Stress [...] on file 04/27/2020 Data from: https://www.neighborhoodatlas.medicine.[facility].edu/. Last address used for calculation [...] documented as of this encounter Care Teams Sawmill Or Timber Yard Worker Relationship Specialty Start Date End Date HillsAugust (Rn), RN PCP - General 12/06/17 10/31/20 Valdez Acosta MD [address] [place] [address] PCP - General Internal Medicine 11/01/20 Dian Smith PA-C [address] [place] [address] Conveyor Monitor Internal Medicine 04/26/24 05/21/24 Malinda Lopez, OUTSOLE MOLDER.STENCIL MACHINE OPERATOR [address] [place] [address] [place] [address] Conveyor Monitor Family Medicine 04/26/24 documented as of this encounter
--- OUTSIDE RECORDS SUMMARY | 2025-01-12 11:46 | XMS_ITS | Encounter Summary ---
Author Organization [facility] Address [address] [place] [address] Care Team Providers Care Slot Key Person Name Role Phone Kristin Gracia DRAGGER Unavailable [phone] Maxim Lanza MD Primary Care Provider Maxim Lanza MD Primary Care Provider [phone] Encounter Details Date Type Department Care Team (Late st Contact Info) Description 05/09/2023 [facility] [address] [place] [id number] Kristin Gracia NP [address] [place] [address] Social History Tobacco Use Types Packs/Day Years [...] How often do you attend chur or tenriism services? Never 05/01/2023 Do you belong to any clubs o r organizations such as gnosticism groups, unions, fraternal or athletic groups, or [...] Recorded Patient Health Questionnaire-2 Score 2 05/01/2023 [facility] of Occupat ional Health - [...] slept in a residential (including now)? No 05/01/2023 Comments Unknown Sex [...] documented as of this encounter Care Teams Slot Key Person Relationship Specialty Start Date End Date Maxim Lanza MD [address] [place] [address] PCP - General Family Medicine 04/22/23 07/14/23 Maxim Lanza MD [address] [place] [address] PCP - General Family Medicine 07/15/23 Kristin Gracia NP [address] [place] [address] Primary Care Provider Family Medicine 05/20/22 documented as of this encounter
--- OUTSIDE RECORDS SUMMARY | 2025-01-12 11:46 | XMS_ITS | Encounter Summary ---
Author Organization [facility] Address [address] [place] [address] Care Team Providers Care Director Validation Name Role Phone HarveyKristin yu SPRAY GUN REPAIRER HELPER Unavailable [phone] Maxim Lanza MD Primary Care Provider [phone] Reason for Visit * Reason Onset Date Comments Other 11/24/2024 scallop cutter Encounter Details Date Type Department Care Team (Late st Contact Info) Description 11/24/2024 Telephone [facility] [address] [place] [phone] Rio Ennis MD [address] [facility] [address] [place] [address] Other (scallop cutter) Social History Tobacco Use Types Packs/Day Years [...] often do you attend chur ch or holiness services? 1 to 4 times per year [...] Recorded Patient Health Questionnaire-2 Score 6 05/18/2024 [facility] [place] of Occupat ional Health - Occupational Stress [...] Yamilka Yates is a 54 y.o. female. [facility] ER called requesting a call back from the certified pediatric nurse practitioner provider regarding this pt. She came into the ER from [facility] per the pt request due to hematuria, pain, and issues with the alexis cath. Call back number is [phone] . documented in this encounter Plan of Treatment Not on file documented as of this encounter Visit Diagnoses Not on filedocumented in this encounter Additional Health Concerns Assessment Noted Time PHQ-9 Depression Total Score: 18 024 9:00 AM EST documented as of this encounter Care Teams Director Validation Relationship Specialty Start Date End Date Maxim Lanza MD [address] [place] [address] PCP - General Family Medicine 07/15/23 Kristin Gracia NP [address] [place] [address] Primary Care Provider Family Medicine 05/20/22 documented as of this encounter
--- OUTSIDE RECORDS SUMMARY | 2025-01-12 11:46 | XMS_ITS | Encounter Summary ---
Author Organization [facility] Address [address] [place] [address] Care Team Providers Care Instrument Repair Supervisor Name Role Phone Valdez Acosta MD Primary Care Provider [phone] Dian Smith PA-C Unavailable + [phone] Malinda Lopez APRN.CARD FEEDER Unavailable + [phone] Source Comments In the event this information is protected by the Federal Confidentiality of Alcohol and Drug AbusePatient Records regulations: The Federal rules restrict any use of the information to criminally investigate or prosecute any alcohol or drug abuse patient.[facility] Encounter Details Date Type Department Care Team (Late st Contact Info) Description 11/12/2021 [place] [address] Provider, Ccf Questionnaire Submission Social History Tobacco [...] Never 08/02/2020 How often do you attend confucianism or caodaism serv ices? Never 08/02/2020 Do you belong to any clubs o r organizations such as confucianism groups, unions, fraternal or athletic groups, or [...] Answer Date Recorded PHQ-2 score 5 09/15/2021 [facility] of Occupat ional Health - Occupational Stress [...] N ot on file 11/14/2021 Data from: https://www.neighborhoodatlas.medicine.[facility].edu/. Last address used for calculation [address] [place] 11/14/2021 Education Answer Date [...] on filedocumented in this encounter Care Teams Instrument Repair Supervisor Relationship Specialty Start Date End Date Valdez Acosta MD [address] [place] [address] PCP - General Internal Medicine 11/01/20 Dian Smith PA-C [address] [place] [address] Software Implementation Specialist Internal Medicine 04/26/24 05/21/24 Malinda Lopez APRN.CARD FEEDER [address] [place] [address] Software Implementation Specialist Family Medicine 04/26/24 documented as of this encounter
--- OUTSIDE RECORDS SUMMARY | 2025-01-12 11:46 | XMS_ITS | Encounter Summary ---
Author Organization [facility] Address [place] [address] Care Team Providers Care Gas Line Servicer Name Role Phone Kirk Wyatt Segundo Primary Care Provider Frances Hills (Rn) medical officer psychiatry Provider Valdez Bhandari MD Primary Care Provider [phone] Dian Smith PA-C Unavailable [phone] Malinda Lopez APRN.COLLAR CLOSER LOCKSTITCH Unavailable + [phone] Source Comments In the event this information is protected by the Federal Confidentiality of Alcohol and Drug AbusePatient Records regulations: The Federal rules restrict any use of the information to criminally investigate or prosecute any alcohol or drug abuse patient.[facility] Encounter Details Date Type Department Care Team (Late st Contact Info) Description 06/26/2016 Patient Msg Medical Records [address] [place] [address] Provider, Ccf labs Social History Tobacco Use [...] documented as of this encounter Care Teams Gas Line Servicer Relationship Specialty Start Date End Date Wyatt Bradley PCP - General Internal Medicine 05/21/12 12/05/17 Frances Hills (Rn), RN PCP - General 12/06/17 10/31/20 Valdez Acosta MD [address] [place] [address] PCP - General Internal Medicine 11/01/20 Dian Smith PA-C [address] [place], [place] [phone] Fermentation Scientist Internal Medicine 04/26/24 05/21/24 Malinda Lopez, PAPERHANGER CONTRACTOR.[facility] [address] [place] [id number] Fermentation Scientist Family Medicine 04/26/24 documented as of this encounter
--- OUTSIDE RECORDS SUMMARY | 2025-01-12 11:46 | XMS_ITS | Encounter Summary ---
Author Organization [facility] Address [facility] [place] [address] Care Team Providers Care Habitat Management Coordinator Name Role Phone Kirk Wyatt Segundo Primary Care Provider Frances Hills (Rn) outbound sales specialist Provider Valdez Bhandari MD Primary Care Provider [phone] Dian Smith PA-C Unavailable [phone] Malinda Lopez APRN.HEAVY EQUIPMENT TECHNICIAN Unavailable + [phone] Source Comments In the event this information is protected by the Federal Confidentiality of Alcohol and Drug AbusePatient Records regulations: The Federal rules restrict any use of the information to criminally investigate or prosecute any alcohol or drug abuse patient.[facility] Encounter Details Date Type Department Care Team (Late st Contact Info) Description 08/11/2015 Patient Msg Medical Records [address] [place] [address] Provider, Ccf CBC results Social History Tobacco [...] documented as of this encounter Care Teams Habitat Management Coordinator Relationship Specialty Start Date End Date Wyatt Bradley PCP - General Internal Medicine 05/21/12 12/05/17 Frances Hills (Rn), MOE PCP - General 12/06/17 10/31/20 Valdez Acosta MD [address] [facility] [place] [address] PCP - General Internal Medicine 11/01/20 Dian Smith PA-C [address] [place], [place] [phone] Compressor Battery Pellets Internal Medicine 04/26/24 05/21/24 Malinda Lopez, STEEL INSPECTOR.[facility] [address] [place] [phone] Compressor Battery Pellets Family Medicine 04/26/24 documented as of this encounter
--- OUTSIDE RECORDS SUMMARY | 2025-01-12 11:46 | XMS_ITS | Encounter Summary ---
Author Organization [facility] Address [address] [place] [address] Care Team Providers Care Deburring Technician Name Role Phone Kirk Wyatt Segundo Primary Care Provider Frances Hills (Rn) granite worker Provider Valdez Bhandari MD Primary Care Provider [phone] Dian Smith PA-C Unavailable [phone] Malinda Lopez APRN.MATHEMATICAL TECHNICIAN Unavailable + [phone] Source Comments In the event this information is protected by the Federal Confidentiality of Alcohol and Drug AbusePatient Records regulations: The Federal rules restrict any use of the information to criminally investigate or prosecute any alcohol or drug abuse patient.[facility] Reason for Visit * Reason Comments Medication Preauthorization [email or web address] Encounter Details Date Type Department Care Team (Late st Contact Info) Description 07/13/2016 [facility] [address] [place] [address] [place] [address] [place] [address] Medication Preauthorization (tecfidera) Social History Tobacco [...] documented as of this encounter Care Teams Deburring Technician Relationship Specialty Start Date End Date Wyatt Bradley PCP - General Internal Medicine 05/21/12 12/05/17 Frances Hills (Rn), RN PCP - General 12/06/17 10/31/20 Valdez Acosta MD [address] [place] [address] PCP - General Internal Medicine 11/01/20 Dian Smith PA-C [facility] [facility] [place] [address] Other Sales Support Worker Internal Medicine 04/26/24 05/21/24 Malinda Lopez, MANAGER PAYMENT.[facility] [address] [place] [address] Other Sales Support Worker Family Medicine 04/26/24 documented as of this encounter
--- OUTSIDE RECORDS SUMMARY | 2025-01-12 11:46 | XMS_ITS | Encounter Summary ---
Author Organization [facility] Address [address] [place] [address] Care Team Providers Care Fish Processing Supervisor Name Role Phone Kristin Gracia EXECUTIVE DIRECTOR CONTRACT SHOP Unavailable [phone] Maxim Lanza MD Primary Care Provider Encounter Details Date Type Department Care Team (Late st Contact Info) Description 10/20/2024 Abstract [facility] [address] [place] [address] Kristin Gracia NP [address] [place] [phone] Social History Tobacco Use Types Packs/Day Years [...] How often do you attend chur or holiness services? 1 to 4 times [...] Recorded Patient Health Questionnaire-2 Score 6 05/18/2024 [facility] of Occupat ional Health - Occupational [...] No 06/04/2023 Housing Stability Vital Sign Answer Vamis e Recorded In the last 12 months, [...] slept in a usp (including now)? No 06/04/2023 Comments Unknown Sex [...] documented as of this encounter Care Teams Fish Processing Supervisor Relationship Specialty Start Date End Date Maxim Lanza MD [address] [place] [phone] PCP - General Family Medicine 07/15/23 Kristin Gracia NP [address] [place] [phone] Primary Care Provider Family Medicine 05/20/22 documented as of this encounter
--- OUTSIDE RECORDS SUMMARY | 2025-01-12 11:46 | XMS_ITS | Encounter Summary ---
Author Organization [facility] Address [facility] [place] [address] Care Team Providers Care Advertising Photographer Name Role Phone Kirk Wyatt Segundo Primary Care Provider Frances Hills (Rn) jigman Provider Valdez Bhandari MD Primary Care Provider [phone] Dian Smith PA-C Unavailable [phone] Malinda Lopez APRN.MUD MIXER Unavailable + [phone] Source Comments In the event this information is protected by the Federal Confidentiality of Alcohol and Drug AbusePatient Records regulations: The Federal rules restrict any use of the information to criminally investigate or prosecute any alcohol or drug abuse patient.[facility] Encounter Details Date Type Department Care Team (Late st Contact Info) Description 09/14/2015 Patient Msg Medical Records [address] [place] [address] Provider, [facility] labs Social History Tobacco Use [...] Assessment Author No 10/29/2014 10:13 AM EDT Traesure Broussard MA * Do you have serious [...] documented as of this encounter Care Teams Advertising Photographer Relationship Specialty Start Date End Date Wyatt Bradley PCP - General Internal Medicine 05/21/12 12/05/17 Frances Hills (Rn), RN PCP - General 12/06/17 10/31/20 Valdez Acosta MD [address] [place] [address] PCP - General Internal Medicine 11/01/20 Dian Smith PA-C [address] [place], [place] [phone] Lime Supervisor Internal Medicine 04/26/24 05/21/24 Malinda Lopez, MARKETING OPERATIONS ANALYST.[facility] [address] [place] [id number] Lime Supervisor Family Medicine 04/26/24 documented as of this encounter
--- OUTSIDE RECORDS SUMMARY | 2025-01-12 11:46 | XMS_ITS | Encounter Summary ---
Author Organization [facility] Address [address] [place] [address] Care Team Providers Care Obgyn Hospitalist Physician Name Role Phone Valdez Acosta MD Primary Care Provider [phone] Dian Smith PA-C Unavailable [phone] Malinda Lopez APRN.MUSICAL INSTRUMENT SUPERVISOR Unavailable + [phone] Source Comments In the event this information is protected by the Federal Confidentiality of Alcohol and Drug AbusePatient Records regulations: The Federal rules restrict any use of the information to criminally investigate or prosecute any alcohol or drug abuse patient.[facility] Encounter Details Date Type Department Care Team (Late st Contact Info) Description 11/08/2020 [facility] [address] [id number] Lanie Lombardi APRN.MUSICAL INSTRUMENT SUPERVISOR [address] [address] RE: Test Result Question Social History Tobacco [...] How often do you attend faith or protestant serv ices? Never 08/02/2020 Do [...] Answer Date Recorded PHQ-2 score 5 10/30/2020 [facility] of Occupat ional Health [...] ot on file 04/27/2020 Data from: https://www.neighborhoodatlas.medicine.[facility].edu/. Last address used for calculation Not [...] on filedocumented in this encounter Care Teams Obgyn Hospitalist Physician Relationship Specialty Start Date End Date Valdez Acosta MD [address] [place] [address] PCP - General Internal Medicine 11/01/20 Dian Smith PA-C [address] [place] [address] Shoemaking Finisher Internal Medicine 04/26/24 05/21/24 Malinda Lopez APRN.MUSICAL INSTRUMENT SUPERVISOR [address] [place] [address] Shoemaking Finisher Family Medicine 04/26/24 documented as of this encounter
--- OUTSIDE RECORDS SUMMARY | 2025-01-12 11:46 | XMS_ITS | Encounter Summary ---
Author Organization [facility] Address [address] [place] [address] Care Team Providers Care Ophthalmic Surgical Assistant Name Role Phone Kirk Wyatt Segundo Primary Care Provider Frances Hills (Rn) fashion photographer Provider Valdez Bhandari MD Primary Care Provider [phone] Dian Smith PA-C Unavailable [phone] Malinda Lopez APRN.DEICER TESTER Unavailable + [phone] Source Comments In the event this information is protected by the Federal Confidentiality of Alcohol and Drug AbusePatient Records regulations: The Federal rules restrict any use of the information to criminally investigate or prosecute any alcohol or drug abuse patient.[facility] Reason for Visit * Reason Comments Medication Preauthorization [employer] Encounter Details Date Type Department Care Team (Late st Contact Info) Description 12/23/2015 [facility] [address] [place] [address] [place] [address] [place] [address] Medication Preauthorization ([employer]) Social History Tobacco [...] documented as of this encounter Care Teams Ophthalmic Surgical Assistant Relationship Specialty Start Date End Date Wyatt Bradley PCP - General Internal Medicine 05/21/12 12/05/17 Frances Hills (Rn), RN PCP - General 12/06/17 10/31/20 Valdez Acosta MD [address] [place] [address] PCP - General Internal Medicine 11/01/20 Dian Smith PA-C [facility] [place] [address] Family And Marriage Counsellor Internal Medicine 04/26/24 05/21/24 Malinda Lopez, HARVEST WORKER.[facility] [address] [place] [address] Family And Marriage Counsellor Family Medicine 04/26/24 documented as of this encounter
--- OUTSIDE RECORDS SUMMARY | 2025-01-12 11:46 | XMS_ITS | Encounter Summary ---
Author Organization [facility] Address [address] [place] [address] Care Team Providers Care College Sports Coach Name Role Phone Kristin Gracia WIRE DRAWING SETTER Unavailable [phone] Maxim Lanza MD Primary Care Provider Encounter Details Date Type Department Care Team (Late st Contact Info) Description 10/08/2024 Abstract [facility] [address] [place] [address] Maxim Lanza MD [address] [place] [phone] Social History Tobacco Use Types Packs/Day Years [...] How often do you attend chur or baptism services? 1 to 4 times per year [...] Recorded Patient Health Questionnaire-2 Score 6 05/18/2024 [facility] of Occupat ional [...] documented as of this encounter Care Teams College Sports Coach Relationship Specialty Start Date End Date Maxim Lanza MD [address] [place] [phone] PCP - General Family Medicine 07/15/23 Kristin Gracia NP [address] [place] [address] Primary Care Provider Family Medicine 05/20/22 documented as of this encounter
--- OUTSIDE RECORDS SUMMARY | 2025-01-12 11:46 | XMS_ITS | Encounter Summary ---
Author Organization [facility] Address [address] [place] [address] Care Team Providers Care Grip Wrapper Name Role Phone Frances Hills (Rn) commanding officer motorized squad Provider Valdez Bhandari MD Primary Care Provider [phone] Dian Smith PA-C Unavailable [phone] Malinda Lopez APRN.[facility] Unavailable + [phone] Source Comments In the event this information is protected by the Federal Confidentiality of Alcohol and Drug AbusePatient Records regulations: The Federal rules restrict any use of the information to criminally investigate or prosecute any alcohol or drug abuse patient.[facility] Encounter Details Date Type Department Care Team (Late st Contact Info) Description 09/08/2020 [facility] [address] [place] [address] Aylin Garrison PA-C [address] [place] [address] RE: Non-Urgent Medical Question Social History [...] How often do you attend confucianist or evangelical serv ices? Never 08/02/2020 Do [...] Answer Date Recorded PHQ-2 score 3 08/02/2020 [facility] [place] of Occupat ional Health - Occupational Stress [...] on file 04/27/2020 Data from: https://www.neighborhoodatlas.medicine.[facility].edu/. Last address used for calculation Not [...] on filedocumented in this encounter Care Teams Grip Wrapper Relationship Specialty Start Date End Date HillsAugust (Rn), RN PCP - General 12/06/17 10/31/20 Valdez Acosta MD [address] [place] [address] PCP - General Internal Medicine 11/01/20 Dian Smith PA-C [address] [place] [address] Career Information Specialist Internal Medicine 04/26/24 05/21/24 Malinda Lopez, LABOR DELIVERY RN.STAMPING PRESS OPERATOR [address] [place] [address] Career Information Specialist Family Medicine 04/26/24 documented as of this encounter
--- OUTSIDE RECORDS SUMMARY | 2025-01-12 11:47 | XMS_ITS | Encounter Summary ---
[id number] [address] [place] [address] Care Team Providers Care Infusion Therapy Nurse Name Role Phone HarveybereniceKristin perry APRN-GENERATOR OPERATOR Primary Care Provider Encounter Details Date Type Department Care Team (Late st Contact Info) Description 12/03/2024 Documentation [facility] Oncology - Radiation Oncology [address] [place] [phone] Nancy Hernandez, RN Social History Tobacco Use Types Packs/Day Years Used Date Smoking Tobacco: Some Days Cigarettes Smokeless Tobacco: Never Alcohol Use Standard Drinks/Week Comments Never 0 (1 standard drink = 0.6 oz pur e alcohol) [facility] Utilities Answer Date Recorded In the past [...] Description 01/13/2025 10:30 AM EDT [facility] [address] [place] [phone] 01/14/2025 10:30 AM EDT Appointment [facility] - Radiation Oncology [address] [place] [phone] 01/15/2025 10:30 AM EDT Appointment [facility] - Radiation Oncology [address] [place] [phone] 01/19/2025 9:45 AM EDT [facility] [address] [place] [phone] 01/19/2025 10:30 AM EDT [facility]ment [facility] [address] [place] [phone] 01/20/2025 10:30 AM EDT Appointment [facility] - Radiation Oncology [address] [place] [phone] 01/21/2025 10:30 AM EDT Appointment [facility] - Radiation Oncology [address] [place] [phone] 03/04/2025 11:15 AM EDT Office Visit Meera Alves [facility] - Medical Oncology [address] [place] [phone] Guillermo Lundberg MD [address] [place] [address] [address] [place] [address] documented as of this encounter Goals Goal Patient Goal Type Associated Problems Recent Progress Patient-Stated? Author SNF General Yes Amparo Lamas LSW Note: Evaluation of progress towards goal: SNF recommended, pt agreeable to SNF stating she is not able to care for self at home at this time documented as of this encounter Visit Diagnoses Not on filedocumented in this encounter Care Teams Infusion Therapy Nurse Relationship Specialty Start Date End Date Kristin Gracia, ELAN-GENERATOR OPERATOR PCP - General Nurse Practitioner 08/28/24 documented as of this encounter
--- OUTSIDE RECORDS SUMMARY | 2025-01-12 11:47 | XMS_ITS | Encounter Summary ---
Author Organization [facility] Address [address] [place] [address] Care Team Providers Care Professional Sports Scout Name Role Phone HarveyberenicejesicaKristin beltran INSULATION MANAGER Unavailable [phone] Maxim Lanza MD Primary Care Provider [phone] Encounter Details Date Type Department Care Team (Late st Contact Info) Description 02/28/2024 Abstract [facility] [address] [place] [phone] Quyen Garcia RN [address] [facility] [place] [place] Social History Tobacco Use Types Packs/Day [...] often do you attend chur ch or zoroastrian services? 1 to 4 times [...] Recorded Patient Health Questionnaire-2 Score 2 12/02/2023 [facility] of Occupat ional Health - Occupational Stress [...] as of this encounter Care Teams Professional Sports Scout Relationship Specialty Start Date End Date Maxim Lanza MD [address] [place] [address] PCP - General Family Medicine 07/15/23 Kristin Gracia NP [address] [place] [address] Primary Care Provider Family Medicine 05/20/22 documented as of this encounter
--- OUTSIDE RECORDS SUMMARY | 2025-01-12 11:47 | XMS_ITS | Clinical Summary ---
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 08/24/19 25 026 Active ondansetron (ZOFRAN) 8 mg tablet Take 1 tablet (8 mg total) by mouth every 8 (eight) hours as needed for nausea or vomiting. 30 tablet 2 11/20/19 25 Active sulfamethoxazole- trimethoprim (BACTRIM DS) 800-160 mg per tabletIndications :GBM (glioblastoma multiforme) (CMS-HCC) Take 1 tab daily, on Saturday and every week. 60 tablet 1 11/20/19 25 026 Active temozolomide (TEMODAR) 180 MG chemo capsuleIndication s:GBM (glioblastoma multiforme) (CMS-HCC) Take 1 capsule by mouth daily 30 capsule 01/01/20 25 Active temozolomide (TEMODAR) 180 MG chemo capsuleIndication s:GBM (glioblastoma multiforme) (CMS-HCC) Take 1 capsule by mouth daily 42 capsule 11/14/19 25 025 Discontinued Active Problems Problem Noted Date Diagnosed Date Thrombocytopenia 12/10/2024 GBM (glioblastoma multiforme) 11/12/2024 Cancer Staging:Clinical stage [...] Encounters Date Type Department Care Team Description 01/12/2025 10:10 AM EDT Hospital Encounter [facility] Radiation Oncology [address] [place] [phone] 01/12/2025 Travel 01/11/2025 10:19 AM EDT - 01/11/2025 11:59 PM EDT Hospital Encounter [facility] - Radiation Oncology [address] [place] [phone] GBM (glioblastoma multiforme) ([facility]) (Primary Dx) Discharge Disposition: Still a Patient 01/08/2025 10:19 AM EDT - 01/08/2025 11:59 PM EDT Hospital Encounter [facility] - Radiation Oncology [address] [place] [phone] Discharge Disposition: Still a Patient 01/08/2025 9:15 AM EDT - 01/08/2025 10:18 AM EDT Hospital Encounter [facility] - Radiation Oncology [address] [place] [phone] Discharge Disposition: Still a Patient 01/08/2025 Travel 01/07/2025 10:09 AM EDT - 01/07/2025 11:59 PM EDT Hospital Encounter [facility] - Radiation Oncology [address] [place] [phone] Discharge Disposition: Still a Patient 01/07/2025 9:15 AM EDT - 01/07/2025 10:08 AM EDT Hospital Encounter [facility] - Radiation Oncology [address] [place] [phone] Discharge Disposition: Still a Patient 01/06/2025 9:15 AM EDT - 01/06/2025 11:59 PM EDT Hospital Encounter [facility] - Radiation Oncology [address] [place] [phone] Discharge Disposition: Still a Patient 01/05/2025 9:02 AM EDT - 01/05/2025 11:59 PM EDT Hospital Encounter [facility] - Radiation Oncology [address] [place] [phone] Discharge Disposition: Still a Patient 01/05/2025 Telephone [facility] [address] [place] [phone] Loree Suggs [facility] Prior Authorization (TEMOZOLOMIDE) 01/04/2025 8:52 AM EDT - 01/04/2025 11:59 PM EDT Hospital Encounter [facility] - Radiation Oncology [address] [place] [address] [phone] Discharge Disposition: Still a Patient 01/04/2025 8:52 AM EDT - 01/04/2025 11:59 PM EDT Hospital Encounter [facility] - Radiation Oncology [address] [place] [phone] GBM (glioblastoma multiforme) ([facility]) (Primary Dx) Discharge Disposition: Still a Patient 01/04/2025 Travel 01/01/2025 8:55 AM EDT - 01/01/2025 11:59 PM EDT Hospital Encounter [facility] - Radiation Oncology [address] [place] [phone] Discharge Disposition: Still a Patient 12/31/2024 8:51 AM EDT - 12/31/2024 11:59 PM EDT Hospital Encounter [facility] - Radiation Oncology [address] [place] [phone] Discharge Disposition: Still a Patient 12/31/2024 Refill Meera Alves [facility] - Medical Oncology [address] [place] [phone] Guillermo Lundberg MD GBM (glioblastoma multiforme) ([facility]) 12/30/2024 8:55 AM EDT - 12/30/2024 11:59 PM EDT Hospital Encounter [facility] - Radiation Oncology [address] [place] [phone] Discharge Disposition: Still a Patient 12/29/2024 9:07 AM EDT - 12/29/2024 11:59 PM EDT Hospital Encounter [facility] - Radiation Oncology [address] [place] [phone] GBM (glioblastoma multiforme) ([facility]) (Primary Dx) Discharge Disposition: Still a Patient 12/29/2024 9:07 AM EDT - 12/29/2024 11:59 PM EDT Hospital Encounter [facility] - Radiation Oncology [address] [place] [phone] Discharge Disposition: Still a Patient 12/29/2024 Travel 12/25/2024 9:45 AM EDT Office Visit Meera Alves [facility] Medical Oncology [address] [place] [phone] Guillermo Lundberg MD GBM (glioblastoma multiforme) ([facility]) (Primary Dx) 12/25/2024 8:56 AM EDT - 12/25/2024 11:59 PM EDT Hospital Encounter [facility] - Radiation Oncology [address] [place] [phone] Discharge Disposition: Still a Patient 12/25/2024 Orders Only Meera Alves [facility] - Medical Oncology [address] [place] [phone] Nida Chowdhury, MOE GBM (glioblastoma multiforme) ([facility]) (Primary Dx); Thrombocytopenia 12/24/2024 2:10 PM EDT Office Visit [facility] [address] [place] [address] Andressa Garcia APRN-[employer] ARCHITECT Brain tumor (CMS-HCC) (Primary Dx); Status post craniotomy 12/24/2024 9:00 AM EDT - 12/24/2024 11:59 PM EDT Hospital Encounter [facility] - Radiation Oncology [address] [place] [phone] Discharge Disposition: Still a Patient 12/23/2024 8:55 AM EDT - 12/23/2024 11:59 PM EDT Hospital Encounter [facility] - Radiation Oncology [address] [place] [phone] Discharge Disposition: Still a Patient 12/22/2024 9:02 AM EDT - 12/22/2024 11:59 PM EDT Hospital Encounter [facility] - Radiation Oncology [address] [place] [phone] Discharge Disposition: Still a Patient 12/22/2024 Travel 12/18/2024 8:59 AM EDT - 12/18/2024 11:59 PM EDT Hospital Encounter [facility] - Radiation Oncology [address] [place] [phone] Discharge Disposition: Still a Patient 12/17/2024 9:03 AM EDT - 12/17/2024 11:59 PM EDT Hospital Encounter [facility] - Radiation Oncology [address] [place] [phone] Discharge Disposition: Still a Patient 12/16/2024 9:00 AM EDT - 12/16/2024 11:59 PM EDT Hospital Encounter [facility] - Radiation Oncology [address] [place] [phone] GBM (glioblastoma multiforme) ([facility]) (Primary Dx) Discharge Disposition: Still a Patient 12/15/2024 8:55 AM EDT - 12/15/2024 11:59 PM EDT Hospital Encounter [facility] - Radiation Oncology [address] [place] [phone] Discharge Disposition: Still a Patient 12/15/2024 Orders Only [facility] - Radiation Oncology [address] [place] [address] Bravo Gomez 12/15/2024 Travel 12/14/2024 10:53 AM EDT - 12/14/2024 11:59 PM EDT Hospital Encounter [facility] - Radiation Oncology [address] [place] [phone] Discharge Disposition: Still a Patient 12/14/2024 9:45 AM EDT - 12/14/2024 10:52 AM EDT Hospital Encounter [facility] - Radiation Oncology [address] [place] [phone] Discharge Disposition: Still a Patient 12/11/2024 10:15 AM EDT - 12/11/2024 11:59 PM EDT Hospital Encounter [facility] - Radiation Oncology [address] [place] [phone] Discharge Disposition: Still a Patient 12/11/2024 Travel 12/10/2024 9:15 AM EDT Office Visit Meera Alves [facility] - Medical Oncology [address] [place] [phone] Guillermo Lundberg MD GBM (glioblastoma multiforme) ([facility]) (Primary Dx); Thrombocytopenia 12/10/2024 9:08 AM EDT - 12/10/2024 11:59 PM EDT Hospital Encounter [facility] - Radiation Oncology [address] [place] [phone] Discharge Disposition: Still a Patient 12/10/2024 Documentation Meera Alves [facility] - Medical Oncology [address] [place] [phone] She Drew RN 12/09/2024 11:10 AM EDT - 12/09/2024 11:59 PM EDT Hospital Encounter [facility] - Radiation Oncology [address] [place] [phone] Discharge Disposition: Still a Patient 12/08/2024 11:30 AM EDT - 12/08/2024 11:59 PM EDT Hospital Encounter [facility] - Radiation Oncology [address] [place] [phone] Discharge Disposition: Still a Patient 12/07/2024 10:30 AM EDT - 12/07/2024 11:59 PM EDT Hospital Encounter [facility] - Radiation Oncology [address] [place] [phone] GBM (glioblastoma multiforme) ([facility]) (Primary Dx) Discharge Disposition: Still a Patient 12/07/2024 10:02 AM EDT - 12/07/2024 10:29 AM EDT Hospital Encounter [facility] - Radiation Oncology [address] [place] [phone] Discharge Disposition: Still a Patient 12/07/2024 Travel 12/04/2024 Documentation Meera Albarado [facility] - Medical Oncology [address] [place] [phone] She Drew, MOE 12/04/2024 Orders Only [facility] - Radiation Oncology [address] [place] [phone] Sarah Barrett, MOE 12/03/2024 Documentation [facility] - Radiation Oncology [address] [place] [phone] Nancy Hernandez, RN 12/03/2024 Documentation [facility] - Radiation Oncology [address] [place] [phone] Nancy Hernandez, RN 11/30/2024 Documentation [facility] - Radiation Oncology [address] [place] [phone] Nancy Hernandez, RN 11/29/2024 9:45 AM EDT Ancillary Procedure [facility] [place] [address] Pain 11/27/2024 11:40 PM EDT Ancillary Procedure [facility] [address] [place] [address] Pain 11/27/2024 Orders Only [facility] - Radiation Oncology [address] [place] [phone] Shorty Gomezcorbin 11/25/2024 7:15 AM EDT - 11/25/2024 11:59 PM EDT Hospital Encounter [facility] - Radiation Oncology [address] [place] [address] [phone] Discharge Disposition: Still a Patient 11/24/2024 Documentation Meera Albarado [facility] - Medical Oncology [address] [place] [address] [phone] Priyanka Velez RN 11/19/2024 Orders Only Meera Alves [facility] - Medical Oncology [address] [place] [phone] Guillermo Lundberg MD GBM (glioblastoma multiforme) ([facility]) (Primary Dx) 11/19/2024 Orders Only Meera Alves [facility] - Medical Oncology [address] [place] [phone] Guillermo Lundberg MD 11/19/2024 Orders Only Meera Albarado [facility] - Medical Oncology [address] [place] [address] [phone] She Drew, MOE 11/19/2024 Orders Only Meera Alves [facility] - Medical Oncology [address] [place] [address] [phone] She Drew, MOE GBM (glioblastoma multiforme) ([facility]) (Primary Dx) 11/13/2024 12:08 PM EDT - 11/13/2024 11:59 PM EDT Hospital Encounter [facility] - Radiation Oncology [address] [place] [phone] Discharge Disposition: Still a Patient 11/13/2024 11:03 AM EDT - 11/13/2024 12:07 PM EDT Hospital Encounter [facility] - Radiation Oncology [address] [place] [phone] Glioblastoma (CMS-HCC) (Primary Dx); GBM (glioblastoma multiforme) (CMS-HCC) Discharge Disposition: Still a Patient 11/13/2024 11:03 AM EDT - 11/13/2024 12:07 PM EDT Hospital Encounter [facility] - Radiation Oncology [address] [place] [phone] GBM (glioblastoma multiforme) ([facility]) Discharge Disposition: Home 11/13/2024 9:48 AM EDT - 11/13/2024 11:02 AM EDT Hospital Encounter [facility] - MRI Imaging [address] [place] [address] Grey Yo MD Glioblastoma ([facility]) Discharge Disposition: Home 11/13/2024 Orders Only Meera Alves [facility] - Medical Oncology [address] [place] [phone] Guillermo Lundberg MD GBM (glioblastoma multiforme) ([facility]) (Primary Dx) 11/13/2024 Documentation Meera Alves [facility] - Medical Oncology [address] [place] [phone] Nancy Hernandez RN 11/13/2024 Telephone [facility] - Radiation Oncology [address] [place] [phone] Guillermo Lundberg MD 11/12/2024 11:00 AM EDT Office Visit Meera Alves [facility] - Medical Oncology [address] [place] [phone] Guillermo Lundberg MD GBM (glioblastoma multiforme) ([facility]) (Primary Dx) 11/12/2024 10:41 AM EDT - 11/12/2024 11:59 PM EDT Hospital Encounter [facility] - Radiation Oncology [address] [place] [phone] GBM (glioblastoma multiforme) ([facility]) (Primary Dx); Brain tumor ([facility]); Double vision Discharge Disposition: Still a Patient 11/12/2024 Documentation [facility] - Radiation Oncology [address] [place] [phone] Nancy Hernandez, MOE 11/12/2024 Documentation Meera Alves [facility] - Medical Oncology [address] [place] [address] [phone] She Drew RN 11/12/2024 Documentation [facility] - Radiation Oncology [address] [place] [address] [phone] Nancy Hernandez, MOE 11/12/2024 Orders Only [facility] - Radiation Oncology [address] [place] [address] [phone] Nancy Hernandez, MOE Glioblastoma ([facility]) (Primary Dx) 11/11/2024 Telephone [facility] - Radiation Oncology [address] [place], [place] [address] [place] [address] Leyla Gusman Received referral Radiation consult lv 11/11/2024 Telephone [facility] [address] [place] [phone] Anya Soni, rating officer note 11/11/2024 Telephone [facility] Hematology Oncology, A Department of [place] [address] [facility] [place] [phone] Ellie Coleman [facility] 11/11/2024 Telephone [facility] Hematology Oncology, A Department of [place] [address] [place] [phone] Ellie Coleman [facility] 11/10/2024 1:10 PM EDT Office Visit [facility] [address] [place] [phone] Andressa Garcia APRN-[employer] ARCHITECT Brain tumor ([facility]) (Primary Dx); Double vision 11/10/2024 Travel from Last 3 Months Immunizations Immunization [...] 01/11/2025 11: 04 AM EDT dark nail persian Inhaled Oxygen Concentration - - Weight 128.4 kg (283 lb) 12/24/2024 2:3 6 PM EDT Height 165 cm (5' 4.96 ) 12/24/2024 2:3 6 PM EDT Body Mass Index 47.15 12/24/2024 2:36 PM EDT Plan of Treatment Upcoming Encounters Date Type Department Care Team (Late st Contact Info) Description 01/13/2025 10:30 AM EDT Appointment [facility] - Radiation Oncology [address] [place] [phone] 01/14/2025 10:30 AM EDT Appointment [facility] - Radiation Oncology [address] [place] [phone] 01/15/2025 10:30 AM EDT Appointment [facility] - Radiation Oncology [address] [place] [phone] 01/19/2025 9:45 AM EDT Appointment [facility] - Radiation Oncology [address] [place] [phone] 01/19/2025 10:30 AM EDT Appointment [facility] - Radiation Oncology [address] [place] [phone] 01/20/2025 10:30 AM EDT Appointment [facility] - Radiation Oncology [address] [place] [phone] 01/21/2025 10:30 AM EDT Appointment [facility] - Radiation Oncology [address] [place] [phone] 03/04/2025 11:15 AM EDT Office Visit [facility] - Medical Oncology [address] [place] [phone] Guillermo Lundberg MD [address] [place] [address] [address] [place] [address] Health Maintenance Due Date Last Done Comments Tobacco Counseling 1968 Depression Screening 1980 Adult BMI Follow Up Plan 1986 Zoster (Shingles) Vaccine (1 of 2) 1987 Pap Smear 1989 COVID-19 Vaccine (2023-2 5 season) 2024 05/29/2022, 05/18/2021, 07/28/2020 Influenza Vaccine 01/18/2025 03/05/2024, , 04/30/2023, Additional history exists Adult BMI Screening 12/24/2025 12/24/2024 Tobacco Screening 12/25/2025 12/25/2024 DTaP,Tdap and Td Vaccines (2 - Td or Tdap) 10/02/2026 10/02/2016 Goals Goal Patient Goal Type Associated Problems Recent Progress Patient-Stated? Author SNF General Yes Amparo Lamas LSW Note: Evaluation of progress towards goal: SNF recommended, pt agreeable to SNF stating she is not able to care for self at home at this time Medical Devices Implanted Type Area Barrel Filler Device Identifier Shelf Expiration Date Model / Serial / Lot Patch Dura 3x3in Thk3.5mm Crnmxf Drmtrx-[place] + Npor Rgnrt Rpl [id number] - [id number] Implanted:Qty : 1 on 09/23/2024 by Juni Espinal MD at [facility] Graft Right: Brain JIM CRANIOMAXILLOFACIAL 06/19/2027 [id number] / / [id number] Plate Bn 12mm 2 Hl Lp Bar Tab Unv Neuro Ii Crnmxf Ti Ns 1.5 - [id number] Implanted:Qty : 2 on 09/23/2024 by Juni Espinal MD at [facility] Plate Right: Brain JIM CRANIOMAXILLOFACIAL [id number] / / Cover Bur Hl Crnfcl 10mmx.5mm Lp Tab Strl Lf Disp - [id number] Implanted:Qty : 1 on 09/23/2024 by Juni Espinal MD at [facility] Plate Right: Brain JIM CRANIOM[employer]IAL [id number] / / Screw Bn 4mm 1.5mm Slf Drl Xpn Crnmxf Strl Must Order In Multiples Of 5ea - [id number] Implanted:Qty : 7 on 09/23/2024 by Juni Espinal MD at [facility] Screw Right: Brain JIM CRANIOMAXILLOFACIAL [id number] / / Procedures Procedure Name Priority Date/Time Associated Diagnosis Comments DAILY RADIATION TREATMENT Routine 01/12/2025 11:00 AM EDT DAILY RADIATION TREATMENT Routine 01/11/2025 10:54 AM EDT DAILY RADIATION TREATMENT Routine 01/08/2025 10:37 AM EDT DAILY RADIATION TREATMENT Routine 01/07/2025 10:56 AM EDT DAILY RADIATION TREATMENT Routine 01/06/2025 9:39 AM EDT DAILY RADIATION TREATMENT Routine 01/05/2025 9:35 AM EDT DAILY RADIATION TREATMENT Routine 01/04/2025 9:34 AM EDT DAILY RADIATION TREATMENT Routine 01/01/2025 9:36 AM EDT DAILY RADIATION TREATMENT Routine 12/31/2024 9:42 AM EDT DAILY RADIATION TREATMENT Routine 12/30/2024 9:24 AM EDT DAILY RADIATION TREATMENT Routine 12/29/2024 9:20 AM EDT DAILY RADIATION TREATMENT Routine 12/25/2024 9:46 AM EDT DAILY RADIATION TREATMENT Routine 12/24/2024 10:07 AM EDT DAILY RADIATION TREATMENT Routine 12/23/2024 10:13 AM EDT DAILY RADIATION TREATMENT Routine 12/22/2024 9:41 AM EDT DAILY RADIATION TREATMENT Routine 12/18/2024 9:23 AM EDT DAILY RADIATION TREATMENT Routine 12/17/2024 9:22 AM EDT DAILY RADIATION TREATMENT Routine 12/16/2024 9:37 AM EDT DAILY RADIATION TREATMENT Routine 12/15/2024 9:15 AM EDT DAILY RADIATION TREATMENT Routine 12/14/2024 11:06 AM EDT IMAGE FUSION Routine 12/11/2024 2:08 PM EDT GBM (glioblastoma multiforme) ([facility]) CT GUIDANCE ( XRT ) Routine 12/11/2024 2 :08 PM EDT GBM (glioblastoma multiforme) ([facility]) IMRT Routine 12/11/2024 2:08 PM EDT GBM (glioblastoma multiforme) ([facility]) CONTINUING PHYSICS SUPPORT Routine 12/11/2024 2:08 PM EDT GBM (glioblastoma multiforme) ([facility]) DEVICES Routine 12/11/2024 2:08 PM EDT GBM (glioblastoma multiforme) ([facility]) CALCULATIONS Routine 12/11/2024 2:08 PM EDT GBM (glioblastoma multiforme) ([facility]) VERIFICATION SIM Routine 12/11/2024 2:08 PM EDT GBM (glioblastoma multiforme) (CMS-HCC) CT SIMULATION Routine 12/11/2024 2:08 PM EDT GBM (glioblastoma multiforme) ([facility]) DAILY RADIATION TREATMENT Routine 12/11/2024 11:17 AM EDT DAILY RADIATION TREATMENT Routine 12/10/2024 10:19 AM EDT DAILY RADIATION TREATMENT Routine 12/09/2024 12:23 PM EDT DAILY RADIATION TREATMENT Routine 12/08/2024 12:35 PM EDT DAILY RADIATION TREATMENT Routine 12/07/2024 10:[address] BRAIN WO CONT Routine 11/29/2024 9:[address] BRAIN WO CONT Routine 11/27/2024 11:[address] ONCOLOGY Routine 11/13/2024 1:13 PM EDT GBM (glioblastoma multiforme) ([facility]) MR BRAIN W WO CONT STAT 11/13/2024 10 :41 AM EDT Glioblastoma ([facility]) from Last 3 Months Results * DAILY RADIATION TREATMENT (01/12/2025 11:00 [...] ONCOLOGY ORDERA BLES Final Result VARIAN POCT * DAILY RADIATION TREATMENT (01/11/2025 10:54 AM [...] Prov RADIATION ONCOLOGY ORDERA BLES Final Result Performing Organization Address [facility] de Phone Number VARIAN POCT * DAILY RADIATION TREATMENT (01/08/2025 10:37 AM [...] Prov RADIATION ONCOLOGY ORDERA BLES Final Result Performing Organization Address City/[facility] Co de Phone Number VARIAN POCT * DAILY RADIATION TREATMENT (01/07/2025 10:56 AM [...] Prov RADIATION ONCOLOGY ORDERA BLES Final Result Performing Organization Address City/[facility] Co de Phone Number VARIAN POCT * DAILY RADIATION TREATMENT (01/06/2025 9:39 AM [...] ONCOLOGY ORDERA BLES Final Result VARIAN POCT * DAILY RADIATION TREATMENT (01/05/2025 9:35 AM [...] Prov RADIATION ONCOLOGY ORDERA BLES Final Result Performing Organization Address [facility] Co de Phone Number VARIAN POCT * DAILY RADIATION TREATMENT (01/04/2025 9:34 AM [...] Prov RADIATION ONCOLOGY ORDERA BLES Final Result Performing Organization Address [facility] Co de Phone Number VARIAN POCT * DAILY RADIATION TREATMENT (01/01/2025 9:36 AM [...] Prov RADIATION ONCOLOGY ORDERA BLES Final Result Performing Organization Address [facility] Co de Phone Number VARIAN POCT * DAILY RADIATION TREATMENT (12/31/2024 9:42 AM [...] Prov RADIATION ONCOLOGY ORDERA BLES Final Result Performing Organization Address [facility] de Phone Number VARIAN POCT * DAILY RADIATION TREATMENT (12/30/2024 9:24 AM [...] ONCOLOGY ORDERA BLES Final Result VARIAN POCT * DAILY RADIATION TREATMENT (12/29/2024 9:20 AM [...] Prov RADIATION ONCOLOGY ORDERA BLES Final Result Performing Organization Address [facility] de Phone Number VARIAN POCT * DAILY RADIATION TREATMENT (12/25/2024 9:46 AM EDT) Course Id C1 VARIAN POCT Course Start Date 11/13/2024 VARIAN POCT First Treatment Date 12/07/2024 VARIAN POCT Last Treatment Date 12/25/2024 VARIAN POCT Elapsed Days 18 VARIAN POCT Reference Point Id Rx Brain VARIAN POCT Dose Given To Date 2,800 VARIAN POCT Session Dose Given 200 VARIAN POCT Plan ID RtTempLobeEd VARIAN POCT Plan Name Rt Temportal Lobe and Edema; IMRT VMAT VARIAN POCT Plan Fractions Treated 14 VARIAN POCT Fractions Prescribed 23 VARIAN POCT Prescribed Dose per Fraction 200 VARIAN POCT Plan Total Prescribed Dose 4,600 VARIAN POCT 12/25/2024 9:46 AM EDT us Not In System Ref Prov RADIATION ONCOLOGY ORDERA BLES Final Result Performing Organization Address City/[facility] Co de Phone Number VARIAN POCT * DAILY RADIATION TREATMENT (12/24/2024 10:07 AM EDT) Course Id C1 VARIAN POCT Course Start Date 11/13/2024 VARIAN POCT First Treatment Date 12/07/2024 VARIAN POCT Last Treatment Date 12/24/2024 VARIAN POCT Elapsed Days 17 VARIAN POCT Reference Point Id Rx Brain VARIAN POCT Dose Given To Date 2,600 VARIAN POCT Session Dose Given 200 VARIAN POCT Plan ID RtTempLobeEd VARIAN POCT Plan Name Rt Temportal Lobe and Edema; IMRT VMAT VARIAN POCT Plan Fractions Treated 13 VARIAN POCT Fractions Prescribed 23 VARIAN POCT Prescribed Dose per Fraction 200 VARIAN POCT Plan Total Prescribed Dose 4,600 VARIAN POCT 12/24/2024 10:0 7 AM EDT us Not In System Ref Prov RADIATION ONCOLOGY ORDERA BLES Final Result Performing Organization Address [facility] Co de Phone Number VARIAN POCT * DAILY RADIATION TREATMENT (12/23/2024 10:13 AM EDT) Course Id C1 VARIAN POCT Course Start Date 11/13/2024 VARIAN POCT First Treatment Date 12/07/2024 VARIAN POCT Last Treatment Date 12/23/2024 VARIAN POCT Elapsed Days 16 VARIAN POCT Reference Point Id Rx Brain VARIAN POCT Dose Given To Date 2,400 VARIAN POCT Session Dose Given 200 VARIAN POCT Plan ID RtTempLobeEd VARIAN POCT Plan Name Rt Temportal Lobe and Edema; IMRT VMAT VARIAN POCT Plan Fractions Treated 12 VARIAN POCT Fractions Prescribed 23 VARIAN POCT Prescribed Dose per Fraction 200 VARIAN POCT Plan Total Prescribed Dose 4,600 VARIAN POCT 12/23/2024 10:1 3 AM EDT us Not In System Ref Prov RADIATION ONCOLOGY ORDERA BLES Final Result VARIAN POCT * DAILY RADIATION TREATMENT (12/22/2024 9:41 AM EDT) Course Id C1 VARIAN POCT Course Start Date 11/13/2024 VARIAN POCT First Treatment Date 12/07/2024 VARIAN POCT Last Treatment Date 12/22/2024 VARIAN POCT Elapsed Days 15 VARIAN POCT Reference Point Id Rx Brain VARIAN POCT Dose Given To Date 2,200 VARIAN POCT Session Dose Given 200 VARIAN POCT Plan ID RtTempLobeEd VARIAN POCT Plan Name Rt Temportal Lobe and Edema; IMRT VMAT VARIAN POCT Plan Fractions Treated 11 VARIAN POCT Fractions Prescribed 23 VARIAN POCT Prescribed Dose per Fraction 200 VARIAN POCT Plan Total Prescribed Dose 4,600 VARIAN POCT 12/22/2024 9:41 AM EDT us Not In System Ref Prov RADIATION ONCOLOGY ORDERA BLES Final Result Performing Organization Address City/[facility] Co de Phone Number VARIAN POCT * DAILY RADIATION TREATMENT (12/18/2024 9:23 AM EDT) Course Id C1 VARIAN POCT Course Start Date 11/13/2024 VARIAN POCT First Treatment Date 12/07/2024 VARIAN POCT Last Treatment Date 12/18/2024 VARIAN POCT Elapsed Days 11 VARIAN POCT Reference Point Id Rx Brain VARIAN POCT Dose Given To Date 2,000 VARIAN POCT Session Dose Given 200 VARIAN POCT Plan ID RtTempLobeEd VARIAN POCT Plan Name Rt Temportal Lobe and Edema; IMRT VMAT VARIAN POCT Plan Fractions Treated 10 VARIAN POCT Fractions Prescribed 23 VARIAN POCT Prescribed Dose per Fraction 200 VARIAN POCT Plan Total Prescribed Dose 4,600 VARIAN POCT 12/18/2024 9:23 AM EDT us Not In System Ref Prov RADIATION ONCOLOGY ORDERA BLES Final Result Performing Organization Address City/[facility] Co de Phone Number VARIAN POCT * DAILY RADIATION TREATMENT (12/17/2024 9:22 AM EDT) Course Id C1 VARIAN POCT Course Start Date 11/13/2024 VARIAN POCT First Treatment Date 12/07/2024 VARIAN POCT Last Treatment Date 12/17/2024 VARIAN POCT Elapsed Days 10 VARIAN POCT Reference Point Id Rx Brain VARIAN POCT Dose Given To Date 1,800 VARIAN POCT Session Dose Given 200 VARIAN POCT Plan ID RtTempLobeEd VARIAN POCT Plan Name Rt Temportal Lobe and Edema; IMRT VMAT VARIAN POCT Plan Fractions Treated 9 VARIAN POCT Fractions Prescribed 23 VARIAN POCT Prescribed Dose per Fraction 200 VARIAN POCT Plan Total Prescribed Dose 4,600 VARIAN POCT 12/17/2024 9:22 AM EDT us Not In System Ref Prov RADIATION ONCOLOGY ORDERA BLES Final Result VARIAN POCT * DAILY RADIATION TREATMENT (12/16/2024 9:37 AM EDT) Course Id C1 VARIAN POCT Course Start Date 11/13/2024 VARIAN POCT First Treatment Date 12/07/2024 VARIAN POCT Last Treatment Date 12/16/2024 VARIAN POCT Elapsed Days 9 VARIAN POCT Reference Point Id Rx Brain VARIAN POCT Dose Given To Date 1,600 VARIAN POCT Session Dose Given 200 VARIAN POCT Plan ID RtTempLobeEd VARIAN POCT Plan Name Rt Temportal Lobe and Edema; IMRT VMAT VARIAN POCT Plan Fractions Treated 8 VARIAN POCT Fractions Prescribed 23 VARIAN POCT Prescribed Dose per Fraction 200 VARIAN POCT Plan Total Prescribed Dose 4,600 VARIAN POCT 12/16/2024 9:37 AM EDT us Not In System Ref Prov RADIATION ONCOLOGY ORDERA BLES Final Result Performing Organization Address [facility]/State/ZIP Co de Phone Number VARIAN POCT * DAILY RADIATION TREATMENT (12/15/2024 9:15 AM EDT) Course Id C1 VARIAN POCT Course Start Date 11/13/2024 VARIAN POCT First Treatment Date 12/07/2024 VARIAN POCT Last Treatment Date 12/15/2024 VARIAN POCT Elapsed Days 8 VARIAN POCT Reference Point Id Rx Brain VARIAN POCT Dose Given To Date 1,400 VARIAN POCT Session Dose Given 200 VARIAN POCT Plan ID RtTempLobeEd VARIAN POCT Plan Name Rt Temportal Lobe and Edema; IMRT VMAT VARIAN POCT Plan Fractions Treated 7 VARIAN POCT Fractions Prescribed 23 VARIAN POCT Prescribed Dose per Fraction 200 VARIAN POCT Plan Total Prescribed Dose 4,600 VARIAN POCT 12/15/2024 9:15 AM EDT us Not In System Ref Prov RADIATION ONCOLOGY ORDERA BLES Final Result Performing Organization Address [facility] Co de Phone Number VARIAN POCT * DAILY RADIATION TREATMENT (12/14/2024 11:06 AM EDT) Course Id C1 VARIAN POCT Course Start Date 11/13/2024 VARIAN POCT First Treatment Date 12/07/2024 VARIAN POCT Last Treatment Date 12/14/2024 VARIAN POCT Elapsed Days 7 VARIAN POCT Reference Point Id Rx Brain VARIAN POCT Dose Given To Date 1,200 VARIAN POCT Session Dose Given 200 VARIAN POCT Plan ID RtTempLobeEd VARIAN POCT Plan Name Rt Temportal Lobe and Edema; IMRT VMAT VARIAN POCT Plan Fractions Treated 6 VARIAN POCT Fractions Prescribed 23 VARIAN POCT Prescribed Dose per Fraction 200 VARIAN POCT Plan Total Prescribed Dose 4,600 VARIAN POCT 12/14/2024 11:0 6 AM EDT us Not In System Ref Prov RADIATION ONCOLOGY ORDERA BLES Final Result Performing Organization Address [facility] de Phone Number VARIAN POCT * DAILY RADIATION TREATMENT (12/11/2024 11:17 AM EDT) Course Id C1 VARIAN POCT Course Start Date 11/13/2024 VARIAN POCT First Treatment Date 12/07/2024 VARIAN POCT Last Treatment Date 12/11/2024 VARIAN POCT Elapsed Days 4 VARIAN POCT Reference Point Id Rx Brain VARIAN POCT Dose Given To Date 1,000 VARIAN POCT Session Dose Given 200 VARIAN POCT Plan ID RtTempLobeEd VARIAN POCT Plan Name Rt Temportal Lobe and Edema; IMRT VMAT VARIAN POCT Plan Fractions Treated 5 VARIAN POCT Fractions Prescribed 23 VARIAN POCT Prescribed Dose per Fraction 200 VARIAN POCT Plan Total Prescribed Dose 4,600 VARIAN POCT 12/11/2024 11:1 7 AM EDT us Not In System Ref Prov RADIATION ONCOLOGY ORDERA BLES Final Result Performing Organization Address City/[facility] Co de Phone Number VARIAN POCT * DAILY RADIATION TREATMENT (12/10/2024 10:19 AM EDT) Course Id C1 VARIAN POCT Course Start Date 11/13/2024 VARIAN POCT First Treatment Date 12/07/2024 VARIAN POCT Last Treatment Date 12/10/2024 VARIAN POCT Elapsed Days 3 VARIAN POCT Reference Point Id Rx Brain VARIAN POCT Dose Given To Date 800 VARIAN POCT Session Dose Given 200 VARIAN POCT Plan ID RtTempLobeEd VARIAN POCT Plan Name Rt Temportal Lobe and Edema; IMRT VMAT VARIAN POCT Plan Fractions Treated 4 VARIAN POCT Fractions Prescribed 23 VARIAN POCT Prescribed Dose per Fraction 200 VARIAN POCT Plan Total Prescribed Dose 4,600 VARIAN POCT 12/10/2024 10:1 9 AM EDT us Not In System Ref Prov RADIATION ONCOLOGY ORDERA BLES Final Result Performing Organization Address [facility] Co de Phone Number VARIAN POCT * DAILY RADIATION TREATMENT (12/09/2024 12:23 PM EDT) Course Id C1 VARIAN POCT Course Start Date 11/13/2024 VARIAN POCT First Treatment Date 12/07/2024 VARIAN POCT Last Treatment Date 12/09/2024 VARIAN POCT Elapsed Days 2 VARIAN POCT Reference Point Id Rx Brain VARIAN POCT Dose Given To Date 600 VARIAN POCT Session Dose Given 200 VARIAN POCT Plan ID RtTempLobeEd VARIAN POCT Plan Name Rt Temportal Lobe and Edema; IMRT VMAT VARIAN POCT Plan Fractions Treated 3 VARIAN POCT Fractions Prescribed 23 VARIAN POCT Prescribed Dose per Fraction 200 VARIAN POCT Plan Total Prescribed Dose 4,600 VARIAN POCT 12/09/2024 12:2 3 PM EDT us Not In System Ref Prov RADIATION ONCOLOGY ORDERA BLES Final Result VARIAN POCT * DAILY RADIATION TREATMENT (12/08/2024 12:35 PM EDT) Course Id C1 VARIAN POCT Course Start Date 11/13/2024 VARIAN POCT First Treatment Date 12/07/2024 VARIAN POCT Last Treatment Date 12/08/2024 VARIAN POCT Elapsed Days 1 VARIAN POCT Reference Point Id Rx Brain VARIAN POCT Dose Given To Date 400 VARIAN POCT Session Dose Given 200 VARIAN POCT Plan ID RtTempLobeEd VARIAN POCT Plan Name Rt Temportal Lobe and Edema; IMRT VMAT VARIAN POCT Plan Fractions Treated 2 VARIAN POCT Fractions Prescribed 23 VARIAN POCT Prescribed Dose per Fraction 200 VARIAN POCT Plan Total Prescribed Dose 4,600 VARIAN POCT 12/08/2024 12:3 5 PM EDT us Not In System Ref Prov RADIATION ONCOLOGY ORDERA BLES Final Result Performing Organization Address City/[facility] Co de Phone Number VARIAN POCT * DAILY RADIATION TREATMENT (12/07/2024 10:42 AM EDT) Course Id C1 VARIAN POCT Course Start Date 11/13/2024 VARIAN POCT First Treatment Date 12/07/2024 VARIAN POCT Last Treatment Date 12/07/2024 VARIAN POCT Elapsed Days 0 VARIAN POCT Reference Point Id Rx Brain VARIAN POCT Dose Given To Date 200 VARIAN POCT Session Dose Given 200 VARIAN POCT Plan ID RtTempLobeEd VARIAN POCT Plan Name Rt Temportal Lobe and Edema; IMRT VMAT VARIAN POCT Plan Fractions Treated 1 VARIAN POCT Fractions Prescribed 23 VARIAN POCT Prescribed Dose per Fraction 200 VARIAN POCT Plan Total Prescribed Dose 4,600 VARIAN POCT 12/07/2024 10:4 2 AM EDT us Not In System Ref Prov RADIATION ONCOLOGY ORDERA BLES Final Result VARIAN POCT * CT brain without contrast (11/29/2024 9:45 AM EDT) Only the most recent of2 resultswithin the time period is included. us Scanning Provider External IMG CT ORDERABLES Fin al Result * CT Oncology (11/13/2024 1:13 PM EDT) Narrative SYSTEMGENERATED, DOCUMENTATION - 11/13/2024 1:13 PM EDT This order was used for Radiation Treatment planning, auto-finalized, and does not contain a result. For full report details, please reach out to your physician. Effective 10/04/2020 this image will be visible to you in [employer]. 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 Expectedpostsurgical distortion is noted, as above. [...] MD IMG MRI ORDERABLES Final Res ult from Last 3 Months Insurance [employer] Advance Directives * Full Code (Latest Code Status on File) Date Activated Date Inactivated Comments 09/19/2024 4:15 AM 09/29/2024 2:25 AM * Full Code Date Activated Date Inactivated Comments 08/28/2024 2:20 PM 09/01/2024 6:45 PM Care Teams Run Lead Relationship Specialty Start Date End Date Kristin Gracia, COMBINE MECHANIC-[employer] ARCHITECT PCP - General Nurse Practitioner 08/28/24
--- OUTSIDE RECORDS SUMMARY | 2025-01-12 11:47 | XMS_ITS | Encounter Summary ---
Author Organization [facility] Address [facility] [place] [address] Care Team Providers Care Office Mover Name Role Phone Valdez Acosta MD Primary Care Provider [phone] Dian Smith PA-C Unavailable [phone] Malinda Lopez APRN.HONING MACHINE OPERATOR SEMIAUTOMATIC Unavailable + [phone] Source Comments In the event this information is protected by the Federal Confidentiality of Alcohol and Drug AbusePatient Records regulations: The Federal rules restrict any use of the information to criminally investigate or prosecute any alcohol or drug abuse patient.[facility] Encounter Details Date Type Department Care Team (Late st Contact Info) Description 09/09/2023 Patient Msg Neurology [address] [phone] Provider, Ccf Requested EMG Appointment Social History [...] How often do you attend hindu or scientology serv ices? Never 08/02/2020 Do [...] Answer Date Recorded PHQ-2 score 5 09/05/2023 [facility] [...] is lower risk 4 09/20/2022 Data from: https://www.neighborhoodatlas.medicine.[facility].edu/. Last address used for calculation [...] Entry Date Author No 10/29/2014 10:13 AM BARBIT Treasure Broussard MA documented in this encounter Plan of Treatment Not on file documented as of this encounter Visit Diagnoses Not on filedocumented in this encounter Care Teams Office Mover Relationship Specialty Start Date End Date Valdez Acosta MD [address] [place] [address] PCP - General Internal Medicine 11/01/20 Dian Smith PA-C [address] [place] [address] Anesthesia Resident Internal Medicine 04/26/24 05/21/24 Malinda Lopez, PLANT QUALITY MANAGER.HONING MACHINE OPERATOR SEMIAUTOMATIC [address] [place] [address] Anesthesia Resident Family Medicine 04/26/24 documented as of this encounter
--- OUTSIDE RECORDS SUMMARY | 2025-01-12 11:47 | XMS_ITS | Encounter Summary ---
Author Organization [facility] Address [address] [place] [address] Care Team Providers Care Directional Bore Operator Name Role Phone Kristin Gracia CIRCULATION SUPERVISOR Unavailable [phone] Maxim Lanza MD Primary Care Provider Encounter Details Date Type Department Care Team (Late st Contact Info) Description 10/20/2024 Orders Only [facility] [address] [place] [address] Kristin Gracia, CIRCULATION SUPERVISOR [address] [place] [id number] Social History Tobacco Use Types Packs/Day Years [...] How often do you attend chur or congregation services? 1 to 4 times per year [...] Recorded Patient Health Questionnaire-2 Score 6 05/18/2024 [facility] - [...] documented as of this encounter Care Teams Directional Bore Operator Relationship Specialty Start Date End Date Maxim Lanza MD [address] [place] [address] PCP - General Family Medicine 07/15/23 Kristin Gracia NP [address] [place] [address] Primary Care Provider Family Medicine 05/20/22 documented as of this encounter
--- OUTSIDE RECORDS SUMMARY | 2025-01-12 11:47 | XMS_ITS | Encounter Summary ---
Author Organization [facility] Address [address] [place] [address] Care Team Providers Care Brew House Supervisor Name Role Phone Valdez Acosta MD Primary Care Provider [phone] Dian Smith PA-C Unavailable [phone] Malinda Lopez APRN.[facility] Unavailable + [phone] Source Comments In the event this information is protected by the Federal Confidentiality of Alcohol and Drug AbusePatient Records regulations: The Federal rules restrict any use of the information to criminally investigate or prosecute any alcohol or drug abuse patient.[facility] Encounter Details Date Type Department Care Team (Late st Contact Info) Description 10/30/2023 [facility] [address] [place], [place] [phone] Aylin Garrison PA-C [address] [place] [address] MRI @ Upcoming appt. 12/10/23 Social [...] How often do you attend catholic or anglican serv ices? Never 08/02/2020 Do you belong [...] Recorded PHQ-2 score 5 09/05/2023 [facility] Occupat ional Health - Occupational Stress [...] risk 4 09/20/2022 Data from: https://www.neighborhoodatlas.medicine.[facility].edu/. Last address used for calculation [address] [...] on filedocumented in this encounter Care Teams Brew House Supervisor Relationship Specialty Start Date End Date Valdez Acosta MD [address] [place] [address] PCP - General Internal Medicine 11/01/20 Dian Smith PA-C [address] [place] [address] [employer] Internal Medicine 04/26/24 05/21/24 Malinda Lopez APRN.RN CASE MGR [address] [place] [address] [employer] Family Medicine 04/26/24 documented as of this encounter
--- OUTSIDE RECORDS SUMMARY | 2025-01-12 11:47 | XMS_ITS | Encounter Summary ---
Author Organization [facility] Address [address] [place] [address] Care Team Providers Care Proc Tech Name Role Phone Frances Hills (Rn) consultant electronics Provider Valdez Bhandari MD Primary Care Provider [phone] Dian Smith PA-C Unavailable [phone] Malinda Lopez APRN.[facility] Unavailable [phone] Source Comments In the event this information is protected by the Federal Confidentiality of Alcohol and Drug AbusePatient Records regulations: The Federal rules restrict any use of the information to criminally investigate or prosecute any alcohol or drug abuse patient.[facility] Encounter Details Date Type Department Care Team (Late st Contact Info) Description 07/15/2020 Patient [facility] [address] [place], [place] [phone] Provider, Ccf Referral Social History Tobacco Use [...] N ot on file 04/27/2020 Data from: https://www.neighborhoodatlas.medicine.[facility]/. Last address used for calculation [...] documented as of this encounter Care Teams Proc Tech Relationship Specialty Start Date End Date ReinierAugust (Rn), RN PCP - General 12/06/17 10/31/20 Valdez Acosta MD [address] [place] [address] PCP - General Internal Medicine 11/01/20 Dian Smith PA-C [address] [place] [address] Internal Medicine 04/26/24 05/21/24 Malinda Lopez, WATER PUMP OPERATOR.PROGRAMMING INSTRUCTOR [address] [place] [address] Family Medicine 04/26/24 documented as of this encounter
--- OUTSIDE RECORDS SUMMARY | 2025-01-12 11:47 | XMS_ITS | Encounter Summary ---
Author Organization [facility] Address [address] [place] [address] Care Team Providers Care Field Service Engineer Name Role Phone Kristin Gracia CHIEF DISPATCHER Unavailable [phone] Maxim Lanza MD Primary Care Provider Encounter Details Date Type Department Care Team (Late st Contact Info) Description 12/30/2024 Abstract [facility] [address] [place] [address] Maxim Lanza MD [address] [place] [phone] Social History Tobacco Use Types Packs/Day Years [...] How often do you attend chur or methodist services? 1 to 4 times per year [...] Patient Health Questionnaire-2 Score 6 05/18/2024 [facility] - Occupational [...] documented as of this encounter Care Teams Field Service Engineer Relationship Specialty Start Date End Date Maxim Lanza MD [address] [place] [phone] PCP - General Family Medicine 07/15/23 Kristin Gracia NP [address] [place] [address] Primary Care Provider Family Medicine 05/20/22 documented as of this encounter
--- OUTSIDE RECORDS SUMMARY | 2025-01-12 11:47 | XMS_ITS | Encounter Summary ---
Author Organization [facility] Address [address] [place] [address] Care Team Providers Care Line Ordering Clinician Name Role Phone Frances Hills (Rn) textile conservator Provider Valdez Bhandari MD Primary Care Provider [phone] Dian Smith PA-C Unavailable + [phone] Malinda Lopez APRN.[facility] Unavailable + [phone] Source Comments In the event this information is protected by the Federal Confidentiality of Alcohol and Drug AbusePatient Records regulations: The Federal rules restrict any use of the information to criminally investigate or prosecute any alcohol or drug abuse patient.[facility] Encounter Details Date Type Department Care Team (Late st Contact Info) Description 03/11/2020 Patient [facility] [address] [place] [phone] Provider, [facility] Social History Tobacco Use Types Packs/Day [...] documented as of this encounter Care Teams Line Ordering Clinician Relationship Specialty Start Date End Date Reinier August (Rn), RN PCP - General 12/06/17 10/31/20 Valdez Acosta MD [address] [place] [address] PCP - General Internal Medicine 11/01/20 Dian Smith PA-C [address] [place] [address] [facility] Internal Medicine 04/26/24 05/21/24 Malinda Lopez, SEISMIC PLOTTER.[facility] [address] [place] [address] [facility] Family Medicine 04/26/24 documented as of this encounter
--- OUTSIDE RECORDS SUMMARY | 2025-01-12 11:47 | XMS_ITS | Encounter Summary ---
[id number] [address] [place] [address] Care Team Providers Care Tire Installer Name Role Phone Harveyberenicevicky Kristin Tevin VIEIRAN-CLASP MACHINE OPERATOR Primary Care Provider Encounter Details Date Type Department Care Team (Late st Contact Info) Description 12/04/2024 Orders Only [facility] Oncology - Radiation Oncology [address] [place] [phone] Sarah Barrett, RN Social History Tobacco Use Types Packs/Day Years Used Date Smoking Tobacco: Some Days Cigarettes Smokeless Tobacco: Never Alcohol Use Standard Drinks/Week Comments Never 0 (1 standard drink = 0.6 oz pur e alcohol) [facility] Utilities Answer Date Recorded In the [...] Info) Description 01/13/2025 10:30 AM EDT [facility]ment [facility] [address] [place] [phone] 01/14/2025 10:30 AM EDT Appointment [facility] - Radiation Oncology [address] [place] [phone] 01/15/2025 10:30 AM EDT Appointment [facility] - Radiation Oncology [address] [place] [phone] 01/19/2025 9:45 AM EDT Appointment [facility] - Radiation Oncology [address] [place] [phone] 01/19/2025 10:30 AM EDT App[facility]ment [facility] - Radiation Oncology [address] [place] [phone] 01/20/2025 10:30 AM EDT Appointment [facility] - Radiation Oncology [address] [place] [phone] 01/21/2025 10:30 AM EDT Appointment [facility] - Radiation Oncology [address] [place] [phone] 03/04/2025 11:15 AM EDT Office Visit [facility] - Medical Oncology [address] [place] [phone] Guillermo Lundberg MD [address] [place] [address] [address] [place] [address] documented as of this encounter Goals Goal Patient Goal Type Associated Problems Recent Progress Patient-Stated? Author SNF General Yes Amparo Lamas LSW Note: Evaluation of progress towards goal: SNF recommended, pt agreeable to SNF stating she is not able to care for self at home at this time documented as of this encounter Visit Diagnoses Not on filedocumented in this encounter Care Teams Tire Installer Relationship Specialty Start Date End Date Kristin Gracia, ELAN-CLASP MACHINE OPERATOR PCP - General Nurse Practitioner 08/28/24 documented as of this encounter
--- OUTSIDE RECORDS SUMMARY | 2025-01-12 11:47 | XMS_ITS | Encounter Summary ---
Author Organization [facility] Address [facility] [place] [address] Care Team Providers Care Batch Tank Controller Name Role Phone Valdez Acosta MD Primary Care Provider [phone] Dian Smith PA-C Unavailable + [phone] Malinda Lopez APRN.[facility] Unavailable + [phone] Source Comments In the event this information is protected by the Federal Confidentiality of Alcohol and Drug AbusePatient Records regulations: The Federal rules restrict any use of the information to criminally investigate or prosecute any alcohol or drug abuse patient.[facility] Encounter Details Date Type Department Care Team (Late st Contact Info) Description 07/05/2023 Patient Msg Neurology [address] [phone] Provider, [facility]cf Please Call [facility] Social History Tobacco Use Types Packs/Day Years [...] Never 08/02/2020 How often do you attend muslim or jainism serv ices? Never 08/02/2020 Do you belong to any clubs o r organizations such as muslim groups, unions, fraternal [...] Answer Date Recorded PHQ-2 score 1 05/01/2023 [facility] of Occupat ional [facility] - Occupational Stress Questionnaire Answer Date [...] on filedocumented in this encounter Care Teams Batch Tank Controller Relationship Specialty Start Date End Date Valdez Acosta MD [address] [place] [address] PCP - General Internal Medicine 11/01/20 Dian Smith PA-C [address] [place] [phone] Set Builder Internal Medicine 04/26/24 05/21/24 Malinda Lopez APRN.CODIFIER [address] [place] [address] [facility] Family Medicine 04/26/24 documented as of this encounter
--- OUTSIDE RECORDS SUMMARY | 2025-01-12 11:47 | XMS_ITS | Encounter Summary ---
Author Organization [facility] Address [id number] [address] [place] [address] Care Team Providers Care Clinical Documentation Clerk Name Role Phone Harveyberenicevicky Kristin Tevin HEAVY TRUCK DRIVER-CREDIT RATING CHECKER Primary Care Provider Encounter Details Date Type Department Care Team (Latest Contact Info) Description 12/29/2024 Travel Social History Tobacco Use Types Packs/Day [...] Description 01/13/2025 10:30 AM EDT Appointment [facility] On[facility] - Radiation Oncology [address] [place] [phone] 01/14/2025 10:30 AM EDT Appointment [facility] - Radiation Oncology [address] [place] [phone] 01/15/2025 10:30 AM EDT Appointment [facility] - Radiation Oncology [address] [place] [phone] 01/19/2025 9:45 AM EDT Appointment [facility] - Radiation Oncology [address] [place] [phone] 01/19/2025 10:30 AM EDT Appointment [facility] - Radiation Oncology [address] [place] [phone] 01/20/2025 10:30 AM EDT [facility] [address] [place] [phone] 01/21/2025 10:30 AM EDT Appointment [facility] - Radiation Oncology [address] [place] [phone] 03/04/2025 11:15 AM EDT Office [facility] - Medical Oncology [address] [place] [phone] Guillermo Lundberg MD [address] [place] [address] [address] [place] [address] documented as of this encounter Goals [...] on filedocumented in this encounter Care Teams Clinical Documentation Clerk Relationship Specialty Start Date End Date Kristin Gracia, HEAVY TRUCK DRIVER-CREDIT RATING CHECKER PCP - General Nurse Practitioner 08/28/24 documented as of this encounter
--- OUTSIDE RECORDS SUMMARY | 2025-01-12 11:47 | XMS_ITS | Encounter Summary ---
Author Organization [facility] Address [address] [place] [address] Care Team Providers Care Marketing Automation Analyst Name Role Phone Valdez Acosta MD Primary Care Provider [phone] Dian Smith PA-C Unavailable + [phone] Malinda Lopez APRN.[facility] Unavailable + [phone] Source Comments In the event this information is protected by the Federal Confidentiality of Alcohol and Drug AbusePatient Records regulations: The Federal rules restrict any use of the information to criminally investigate or prosecute any alcohol or drug abuse patient.[facility] Encounter Details Date Type Department Care Team (Late st Contact Info) Description 06/10/2023 [facility] [address] [place], [place] [phone] Aylin Garrison PA-C [address] [place] [address] Bulging disc Social History Tobacco Use [...] How often do you attend confucianist or sikhism serv ices? Never 08/02/2020 Do [...] Answer Date Recorded PHQ-2 score 1 05/01/2023 [facility] of Occupat ional Health - [...] is lower risk 4 09/20/2022 Data from: https://www.neighborhoodatlas.medicine.[facility].edu/. Last address used for calculation [...] Treasure Broussard MA documented in this encounter Miscellaneous Notes * Telephone Encounter - Malinda Victoria RN - 06/10/2023 2:26 PM EST Called [facility] at [phone], spoke with provider relations representative who is pushing over MRI Cervical Spine Images from 05-09-2023 to [facility] via [employer]. Routing to Aylin Garrison PA-C. Gabriel Victoria RN documented in this encounter Plan of Treatment Not on file documented as of this encounter Visit Diagnoses Not on filedocumented in this encounter Care Teams Marketing Automation Analyst Relationship Specialty Start Date End Date Valdez Acosta MD [address] [place] [address] PCP - General Internal Medicine 11/01/20 Dian Smith PA-C [address] [place] [address] [phone] Clerk Of Works Internal Medicine 04/26/24 05/21/24 Malinda Lopez APRN.DIABETES TRAINER [address] [place] [address] [phone] Clerk Of Works Family Medicine 04/26/24 documented as of this encounter
--- OUTSIDE RECORDS SUMMARY | 2025-01-12 11:47 | XMS_ITS | Encounter Summary ---
Author Organization [facility] Address [address] [place] [address] Care Team Providers Care Family Medicine Physician Assistant Name Role Phone Kristin Gracia YARD HOSTLER Unavailable [phone] Maxim Lanza MD Primary Care Provider Encounter Details Date Type Department Care Team (Late st Contact Info) Description 12/02/2024 Abstract [facility] [address] [place] [phone] Kristin Gracia NP [address] [place] [phone] Social History Tobacco Use Types Packs/Day Years [...] any clubs o r organizations such as tenriism groups, unions, fraternal [...] Recorded Patient Health Questionnaire-2 Score 6 05/18/2024 [facility] of Occupat ional Health - [...] slept in a retirement (including now)? No 06/04/2023 Comments Unknown Sex [...] documented as of this encounter Care Teams Family Medicine Physician Assistant Relationship Specialty Start Date End Date Maxim Lanza MD [address] [place] [phone] PCP - General Family Medicine 07/15/23 Kristin Gracia NP [address] [place] [phone] Primary Care Provider Family Medicine 05/20/22 documented as of this encounter
--- OUTSIDE RECORDS SUMMARY | 2025-01-12 11:47 | XMS_ITS | Encounter Summary ---
Author Organization [facility] Address [address] [place] [address] Care Team Providers Care Warper Tender Name Role Phone Valdez Acosta MD Primary Care Provider [phone] Dian Smith PA-C Unavailable + [phone] Malinda Lopez APRN.NURSE EXTERN Unavailable + [phone] Source Comments In the event this information is protected by the Federal Confidentiality of Alcohol and Drug AbusePatient Records regulations: The Federal rules restrict any use of the information to criminally investigate or prosecute any alcohol or drug abuse patient.[facility] Encounter Details Date Type Department Care Team (Late st Contact Info) Description 11/26/2023 Patient Msg Radiology [address] [place] [address] Provider, [facility] MRI Questionnaire Social [...] How often do you attend zoroastrian or worship serv ices? Never 08/02/2020 Do you belong [...] Answer Date Recorded PHQ-2 score 5 09/05/2023 [facility] of Occupat ional [...] is lower risk 4 09/20/2022 Data from: https://www.neighborhoodatlas.medicine.[facility].edu/. Last address used for calculation [address] [...] on filedocumented in this encounter Care Teams Warper Tender Relationship Specialty Start Date End Date Valdez Acosta MD [address] [place] [address] PCP - General Internal Medicine 11/01/20 Dian Smith PA-C [facility] [place] [address] Order Analyst Internal Medicine 04/26/24 05/21/24 Malinda Lopez APRN.NURSE EXTERN [address] [place] [phone] Order Analyst Family Medicine 04/26/24 documented as of this encounter
--- OUTSIDE RECORDS SUMMARY | 2025-01-12 11:47 | XMS_ITS | Encounter Summary ---
Author Organization [facility] Address [id number] [address] [place] [address] Care Team Providers Care Automobile Carpets Molder Name Role Phone Harveyberenicevicyk Kristin Tevin RADIOLOGY INTERVENTIONAL PHYSICIAN-LANG PATH THERAPIST Primary Care Provider Encounter Details Date Type Department Care Team (Latest Contact Info) Description 01/12/2025 Travel Social History Tobacco Use Types Packs/Day Years Used Date Smoking Tobacco: Some Days Cigarettes Smokeless Tobacco: Never Alcohol Use Standard Drinks/Week Comments Never 0 (1 standard drink = 0.6 oz pur e alcohol) [facility] Utilities Answer Date Recorded In the past [...] Description 01/13/2025 10:30 AM EDT Appointment [facility] - Radiation Oncology [address] [place] [phone] 01/14/2025 10:30 AM EDT Appointment [facility] - Radiation Oncology [address] [place] [phone] 01/15/2025 10:30 AM EDT Appointment [facility] - Radiation Oncology [address] [place] [phone] 01/19/2025 9:45 AM EDT Appointment [facility] - Radiation Oncology [address] [place] [phone] 01/19/2025 10:30 AM EDT Appointment [facility] - Radiation Oncology [address] [place] [phone] 01/20/2025 10:30 AM EDT [facility] [address] [place] [phone] 01/21/2025 10:30 AM EDT Appointment [facility] - Radiation Oncology [address] [place] [phone] 03/04/2025 11:15 AM EDT [facility] - Medical Oncology [address] [place] [phone] Guillermo Lundberg MD [address] [place] [address] [address] [place] [address] documented as of this encounter Goals [...] on filedocumented in this encounter Care Teams Automobile Carpets Molder Relationship Specialty Start Date End Date Kristin Gracia, RADIOLOGY INTERVENTIONAL PHYSICIAN-LANG PATH THERAPIST PCP - General Nurse Practitioner 08/28/24 documented as of this encounter
--- OUTSIDE RECORDS SUMMARY | 2025-01-12 11:47 | XMS_ITS | Encounter Summary ---
Author Organization [facility] Address [facility] [place] [address] Care Team Providers Care Synthetic Soil Blocks Pulper Name Role Phone Valdez Acosta MD Primary Care Provider [phone] Dian Smith PA-C Unavailable + [phone] Malinda Lopez APRN.SENIOR FUNCTIONAL ANALYST Unavailable + [phone] Source Comments In the event this information is protected by the Federal Confidentiality of Alcohol and Drug AbusePatient Records regulations: The Federal rules restrict any use of the information to criminally investigate or prosecute any alcohol or drug abuse patient.[facility] Encounter Details Date Type Department Care Team (Late st Contact Info) Description 05/03/2023 Patient Msg Neurology [address] [place] [phone] Provider, [facility]cf New Year Insurance Verification Social [...] How often do you attend christianity or muslim serv ices? Never 08/02/2020 Do you belong [...] Answer Date Recorded PHQ-2 score 1 05/01/2023 [facility] of Occupat ional [...] is lower risk 4 09/20/2022 Data from: https://www.neighborhoodatlas.medicine.[facility].edu/. Last address used for calculation [address] [...] on filedocumented in this encounter Care Teams Synthetic Soil Blocks Pulper Relationship Specialty Start Date End Date Valdez Acosta MD [address] [place] [address] PCP - General Internal Medicine 11/01/20 Dian Smith PA-C [address] [place] [address] Physician Assistant Certified Internal Medicine 04/26/24 05/21/24 Malinda Lopez APRN.SENIOR FUNCTIONAL ANALYST [address] [place] [address] Physician Assistant Certified Family Medicine 04/26/24 documented as of this encounter
--- OUTSIDE RECORDS SUMMARY | 2025-01-12 11:47 | XMS_ITS | Encounter Summary ---
Author Organization [employer] [facility] Address [facility][id number] [address] [place] [address] Care Team Providers Care Billing Machine Operator Name Role Phone Harveyberenicevicky Kristin Tevin BUS OPERATOR-SAFETY ANALYST Primary Care Provider Encounter Details Date Type Department Care Team (Latest Contact Info) Description 01/08/2025 Travel Social History Tobacco Use Types Packs/Day Years Used Date Smoking Tobacco: Some Days Cigarettes Smokeless Tobacco: Never Alcohol Use Standard Drinks/Week Comments Never 0 (1 standard drink = 0.6 oz pur e alcohol) [facility] Utilities Answer Date Recorded In [...] Description 01/13/2025 10:30 AM EDT Appointment [facility] - Radiation Oncology [address] [place] [phone] 01/14/2025 10:30 AM EDT Appointment [facility] - Radiation Oncology [address] [place] [phone] 01/15/2025 10:30 AM EDT Appointment [facility] - Radiation Oncology [address] [place] [phone] 01/19/2025 9:45 AM EDT Appointment [facility] - Radiation Oncology [address] [place] [phone] 01/19/2025 10:30 AM EDT Appointment [facility] - Radiation Oncology [address] [place] [phone] 01/20/2025 10:30 AM EDT [facility] [address] [place] [phone] 01/21/2025 10:30 AM EDT Appointment [facility] - Radiation Oncology [address] [place] [phone] 03/04/2025 11:15 AM EDT Office Visit [facility] - Medical Oncology [address] [place] [phone] Guillermo Lundberg MD [address] [place] [address] [address] [place] [address] documented as of this encounter Goals [...] on filedocumented in this encounter Care Teams Billing Machine Operator Relationship Specialty Start Date End Date Kristin Gracia, BUS OPERATOR-SAFETY ANALYST PCP - General Nurse Practitioner 08/28/24 documented as of this encounter
--- OUTSIDE RECORDS SUMMARY | 2025-01-12 11:48 | XMS_ITS | Encounter Summary ---
Author Organization [facility] Address [address] [place] [address] Care Team Providers Care Co Pilot Name Role Phone Kristin Gracia MOUSE BREEDER Unavailable [phone] Maxim Lanza MD Primary Care Provider [phone] Encounter Details Date Type Department Care Team (Late st Contact Info) Description 11/30/2024 Abstract [facility] [address] [place] [address] Kristin Gracia NP [address] [place] [phone] Social History Tobacco Use Types Packs/Day Years [...] How often do you attend chur or gnosticism services? 1 to 4 times per year 06/04/2023 Do you belong to any clubs o r organizations such as rastafarian groups, unions, fraternal or athletic groups, or [...] Recorded Patient Health Questionnaire-2 Score 6 05/18/2024 [facility] of Occupat ional Health - [...] in a group home (including now)? No 06/04/2023 Comments Unknown [...] documented as of this encounter Care Teams Co Pilot Relationship Specialty Start Date End Date Maxim Lanza MD [address] [place] [phone] PCP - General Family Medicine 07/15/23 Kristin Gracia NP [address] [place] [phone] Primary Care Provider Family Medicine 05/20/22 documented as of this encounter
--- OUTSIDE RECORDS SUMMARY | 2025-01-12 11:48 | XMS_ITS | Encounter Summary ---
Author Organization [facility] Address [address] [place] [address] Care Team Providers Care Anchorer Name Role Phone Katrinaaliyah Disha Ho Primary Care Provider [phone] Pcp, No Primary Care Provider Unavailabl Wyatt Costa Primary Care Provider Frances Hills (Rn) child daycare worker Provider Valdez Bhandari MD Primary Care Provider [phone] Dian Smith PA-C Unavailable [phone] Malinda Lopez APRN.RECEIVING ROOM CLERK Unavailable + [phone] Source Comments In the event this information is protected by the Federal Confidentiality of Alcohol and Drug AbusePatient Records regulations: The Federal rules restrict any use of the information to criminally investigate or prosecute any alcohol or drug abuse patient.[facility] Encounter Details Date Type Department Care Team (Late st Contact Info) Description 08/13/2005 Abstract General Surgery [address] [phone] Tari Chavira MD [address] [phone] Social History Tobacco Use Types Packs/Day Years [...] old female submitted a completed questionnaire to [facility] for consideration [...] months with weight loss of [address] [facility] in 2000 over 07 months with weight [...] No hospitalizations. 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 Caffeine History: [...] Heart Father Cancer Father Thyroid Maternal Grandmother PAPER PATTERN INSPECTOR HISTORY Date of last control board operator exam? 08/2001;performed by Dr. Gauthier; whose phone # is [phone] Did you have aPAP test at the [...] Patient was referred to this program by [facility] Primary Care Physician Yahaira Sam Ma documented in this encounter Plan of Treatment Not on file documented as of this encounter Visit Diagnoses Not on filedocumented in this encounter Additional Health Concerns Infection Onset Date Last Indicated Resolved Time COVID-19 Rule-Out 08/06/2020 08/05/2020 08/26/2020 8:53 PM EDT documented as of this encounter Care Teams Anchorer Relationship Specialty Start Date End Date Disha Massey [address] [place] [phone] PCP - General 05/23/04 11/15/11 Pcp, No PCP - General 11/16/11 05/20/12 Wyatt Bradley PCP - General Internal Medicine 05/21/12 12/05/17 Frances Hills (Rn), RN PCP - General 12/06/17 10/31/20 Valdez Acosta MD [address] [place] [address] PCP - General Internal Medicine 11/01/20 Dian Smith PA-C [address] [place] [address] [phone] Trauma Director Internal Medicine 04/26/24 05/21/24 Malinda Lopez APRN.RECEIVING ROOM CLERK [address] [place] [address] [phone] Trauma Director Family Medicine 04/26/24 documented as of this encounter
--- OUTSIDE RECORDS SUMMARY | 2025-01-12 11:48 | XMS_ITS | Continuity of Care Document ---
Author Organization [facility] Address [address] [place] [address] Insurance Providers Payer Plan Claims Address Claims Phone Policy Number Group Number Relation Employer Guarantor Name Guarantor Guarantor Address Guarantor Phone [facility] MEDICA RE [place] [address] [address], [place] [address] tel:[phone] AARP Medica re Advant age [facility] AARP Medic are Advan tage [facility] [address] [address], [place] [address] tel:[phone] 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 Refere nce Range Blood chemistry[968434949] Glucose [Mass/volume] in Serum or Plasma [2345-7] 09/18/2024 07:09 AM 285 mg/dL N Tuberculosis reaction wheal[ 39477-6] Tuberculosis reaction wheal [98277-7] 09/11/2024 04:00 PM 0 mm NEG Tuberculosis reaction wheal[ 09318-9] Tuberculosis reaction wheal [01971-8] 09/11/2024 04:00 PM See note TB test Tuberculosis reaction wheal[ 11197-2] Tuberculosis reaction wheal [44200-6] 09/01/2024 04:00 PM 0 mm NEG Allergies, adverse reactions, alerts Substance Reaction Date Status Type No allergies have been recorded Non Drug Immunizations Vaccine Route Date Status COVID-19 Vaccine Unassigned Route of Administration Refused Pneumococcal Vaccine Unassigned Route of Administratio n 09/07/2024 Refused Medications Medication Instructions Route Dosage Frequency Start Date Stop Date Indications Status acetaminophen 325 mg tablet (acetaminophen ) [id number], oral, Every 6 Hours - PRN, mild [...] Result Comment 09/01/2024 09:35 PM Body Height (8302-2) 67 [in_us] 09/01/2024 09:34 PM Temperature (8310-5) 98.1 [degF] Oxygen Saturation (88352-9) 95 % Respiratory Rate (9279-1) 18 /min Heart Rate (8867-4) 85 /min Blood Pressure Systolic (8480-6) 144 mm[Hg] Blood Pressure Diastolic (8462-4) 76 mm[Hg] 09/02/2024 01:48 AM Temperature (8310-5) 97.6 [degF] Oxygen Saturation (93121-8) 96 % Respiratory Rate (9279-1) 20 /min Heart Rate (8867-4) 85 /min Blood Pressure Systolic (8480-6) 119 mm[Hg] Blood Pressure Diastolic (8462-4) 60 mm[Hg] 09/02/2024 09:13 AM Temperature (8310-5) 98.1 [degF] Oxygen Saturation (82247-6) 93 % Respiratory Rate (9279-1) 18 /min Heart Rate (8867-4) 95 /min Blood Pressure Systolic (8480-6) 152 mm[Hg] Blood Pressure Diastolic (8462-4) 78 mm[Hg] 09/02/2024 11:04 PM Temperature (8310-5) 98.2 [degF] Oxygen Saturation (46748-0) 94 % Respiratory Rate (9279-1) 18 /min Heart Rate (8867-4) 96 /min Blood Pressure Systolic (8480-6) 150 mm[Hg] Blood Pressure Diastolic (8462-4) 75 mm[Hg] 09/03/2024 04:48 AM Temperature (8310-5) 98 [degF] Oxygen Saturation (73654-7) 96 % Respiratory Rate (9279-1) 18 /min Heart Rate (8867-4) 84 /min Blood Pressure Systolic (8480-6) 146 mm[Hg] Blood Pressure Diastolic (8462-4) 74 mm[Hg] 09/03/2024 09:33 PM Temperature (8310-5) 98.3 [degF] Oxygen Saturation (51588-4) 98 % Respiratory Rate (9279-1) 16 /min Heart Rate (8867-4) 74 /min Blood Pressure Systolic (8480-6) 153 mm[Hg] Blood Pressure Diastolic (8462-4) 82 mm[Hg] 09/04/2024 01:42 AM Temperature (8310-5) 98.1 [degF] Oxygen Saturation (39428-8) 94 % Respiratory Rate (9279-1) 18 /min Heart Rate (8867-4) 82 /min Blood Pressure Systolic (8480-6) 126 mm[Hg] Blood Pressure Diastolic (8462-4) 68 mm[Hg] 09/04/2024 08:29 AM Temperature (8310-5) 98.1 [degF] Oxygen Saturation (72940-9) 95 % Respiratory Rate (9279-1) 18 /min Heart Rate (8867-4) 101 /min Blood Pressure Systolic (8480-6) 114 mm[Hg] Blood Pressure Diastolic (8462-4) 75 mm[Hg] 09/04/2024 04:46 PM Temperature (8310-5) 98.2 [degF] Oxygen Saturation (98670-2) 97 % Respiratory Rate (9279-1) 16 /min Heart Rate (8867-4) 80 /min Blood Pressure Systolic (8480-6) 103 mm[Hg] Blood Pressure Diastolic (8462-4) 72 mm[Hg] 09/04/2024 02:25 PM Body Weight (54970-4) 266 [lb_av] Body Mass Index (84928-8) 41.66 kg/m2 09/05/2024 12:34 AM Temperature (8310-5) 98 [degF] Oxygen Saturation (57635-3) 97 % Respiratory Rate (9279-1) 18 /min Heart Rate (8867-4) 87 /min Blood Pressure Systolic (8480-6) 118 mm[Hg] Blood Pressure Diastolic (8462-4) 76 mm[Hg] 09/05/2024 09:23 AM Temperature (8310-5) 98 [degF] Oxygen Saturation (50233-9) 97 % Respiratory Rate (9279-1) 18 /min Heart Rate (8867-4) 82 /min Blood Pressure Systolic (8480-6) 124 mm[Hg] Blood Pressure Diastolic (8462-4) 74 mm[Hg] 09/06/2024 09:29 AM Temperature (8310-5) 98 [degF] Oxygen Saturation (14484-7) 97 % Respiratory Rate (9279-1) 18 /min Heart Rate (8867-4) 78 /min Blood Pressure Systolic (8480-6) 128 mm[Hg] Blood Pressure Diastolic (8462-4) 70 mm[Hg] 09/07/2024 10:28 AM Temperature (8310-5) 98.1 [degF] Oxygen Saturation (64337-2) 95 % Respiratory Rate (9279-1) 18 /min Heart Rate (8867-4) 84 /min Blood Pressure Systolic (8480-6) 109 mm[Hg] Blood Pressure Diastolic (8462-4) 63 mm[Hg] 09/08/2024 10:48 AM Temperature (8310-5) 98 [degF] Oxygen Saturation (99593-9) 97 % Respiratory Rate (9279-1) 18 /min Heart Rate (8867-4) 80 /min Blood Pressure Systolic (8480-6) 118 mm[Hg] Blood Pressure Diastolic (8462-4) 68 mm[Hg] 09/08/2024 09:39 PM Temperature (8310-5) 98.2 [degF] Oxygen Saturation (09208-8) 95 % Respiratory Rate (9279-1) 18 /min Heart Rate (8867-4) 72 /min Blood Pressure Systolic (8480-6) 151 mm[Hg] Blood Pressure Diastolic (8462-4) 76 mm[Hg] 09/08/2024 03:37 PM Body Weight (60970-5) 271 [lb_av] Body Mass Index (59183-5) 42.44 kg/m2 09/09/2024 08:00 AM Temperature (8310-5) 97.9 [degF] Oxygen Saturation (47189-3) 95 % Respiratory Rate (9279-1) 18 /min Heart Rate (8867-4) 65 /min Blood Pressure Systolic (8480-6) 154 mm[Hg] Blood Pressure Diastolic (8462-4) 70 mm[Hg] 09/09/2024 05:56 PM Temperature (8310-5) 98 [degF] Oxygen Saturation (41582-3) 96 % Respiratory Rate (9279-1) 18 /min Heart Rate (8867-4) 99 /min Blood Pressure Systolic (8480-6) 140 mm[Hg] Blood Pressure Diastolic (8462-4) 75 mm[Hg] 09/10/2024 12:45 AM Temperature (8310-5) 98.2 [degF] Oxygen Saturation (55623-9) 97 % Respiratory Rate (9279-1) 18 /min Heart Rate (8867-4) 93 /min Blood Pressure Systolic (8480-6) 106 mm[Hg] Blood Pressure Diastolic (8462-4) 75 mm[Hg] 09/10/2024 10:00 AM Temperature (8310-5) 98.2 [degF] Oxygen Saturation (55945-9) 99 % Respiratory Rate (9279-1) 18 /min Heart Rate (8867-4) 66 /min Blood Pressure Systolic (8480-6) 97 mm[Hg] Blood Pressure Diastolic (8462-4) 82 mm[Hg] 09/10/2024 09:35 PM Temperature (8310-5) 98 [degF] Oxygen Saturation (17440-5) 98 % Respiratory Rate (9279-1) 18 /min Heart Rate (8867-4) 65 /min Blood Pressure Systolic (8480-6) 106 mm[Hg] Blood Pressure Diastolic (8462-4) 68 mm[Hg] 09/11/2024 12:00 AM Temperature (8310-5) 98.2 [degF] Oxygen Saturation (15664-6) 98 % Respiratory Rate (9279-1) 18 /min Heart Rate (8867-4) 68 /min Blood Pressure Systolic (8480-6) 110 mm[Hg] Blood Pressure Diastolic (8462-4) 78 mm[Hg] 09/11/2024 08:50 AM Temperature (8310-5) 98 [degF] Oxygen Saturation (22659-5) 98 % Respiratory Rate (9279-1) 18 /min Heart Rate (8867-4) 73 /min Blood Pressure Systolic (8480-6) 114 mm[Hg] Blood Pressure Diastolic (8462-4) 75 mm[Hg] 09/11/2024 09:55 PM Temperature (8310-5) 98 [degF] Oxygen Saturation (25872-7) 97 % Respiratory Rate (9279-1) 18 /min Heart Rate (8867-4) 75 /min Blood Pressure Systolic (8480-6) 124 mm[Hg] Blood Pressure Diastolic (8462-4) 74 mm[Hg] 09/12/2024 01:18 AM Temperature (8310-5) 97.6 [degF] Oxygen Saturation (41145-5) 98 % Respiratory Rate (9279-1) 18 /min Heart Rate (8867-4) 90 /min Blood Pressure Systolic (8480-6) 99 mm[Hg] Blood Pressure Diastolic (8462-4) 50 mm[Hg] 09/12/2024 08:00 AM Temperature (8310-5) 98 [degF] Oxygen Saturation (70618-7) 95 % Respiratory Rate (9279-1) 18 /min Heart Rate (8867-4) 82 /min Blood Pressure Systolic (8480-6) 118 mm[Hg] Blood Pressure Diastolic (8462-4) 74 mm[Hg] 09/12/2024 06:37 PM Temperature (8310-5) 98.1 [degF] Oxygen Saturation (72229-6) 98 % Respiratory Rate (9279-1) 18 /min Heart Rate (8867-4) 86 /min Blood Pressure Systolic (8480-6) 110 mm[Hg] Blood Pressure Diastolic (8462-4) 74 mm[Hg] 09/13/2024 01:42 AM Temperature (8310-5) 98 [degF] Oxygen Saturation (14395-2) 97 % Respiratory Rate (9279-1) 18 /min Heart Rate (8867-4) 73 /min Blood Pressure Systolic (8480-6) 124 mm[Hg] Blood Pressure Diastolic (8462-4) 70 mm[Hg] 09/13/2024 11:13 AM Temperature (8310-5) 98.2 [degF] Oxygen Saturation (06377-4) 98 % Respiratory Rate (9279-1) 18 /min Heart Rate (8867-4) 72 /min Blood Pressure Systolic (8480-6) 109 mm[Hg] Blood Pressure Diastolic (8462-4) 70 mm[Hg] 09/14/2024 09:49 AM Temperature (8310-5) 98 [degF] Oxygen Saturation (18430-8) 97 % Respiratory Rate (9279-1) 16 /min Heart Rate (8867-4) 76 /min Blood Pressure Systolic (8480-6) 126 mm[Hg] Blood Pressure Diastolic (8462-4) 64 mm[Hg] 09/15/2024 01:33 AM Temperature (8310-5) 97.8 [degF] Oxygen Saturation (75749-9) 94 % Respiratory Rate (9279-1) 20 /min Heart Rate (8867-4) 94 /min Blood Pressure Systolic (8480-6) 138 mm[Hg] Blood Pressure Diastolic (8462-4) 85 mm[Hg] 09/16/2024 08:09 AM Temperature (8310-5) 97.8 [degF] Oxygen Saturation (19633-1) 98 % Respiratory Rate (9279-1) 18 /min Heart Rate (8867-4) 83 /min Blood Pressure Systolic (8480-6) 142 mm[Hg] Blood Pressure Diastolic (8462-4) 82 mm[Hg] 09/15/2024 06:33 PM Body Weight (54190-8) 274 [lb_av] Body Mass Index (46144-8) 42.91 kg/m2 09/17/2024 11:55 AM Temperature (8310-5) 98 [degF] Oxygen Saturation (89867-4) 97 % Respiratory Rate (9279-1) 18 /min Heart Rate (8867-4) 76 /min Blood Pressure Systolic (8480-6) 128 mm[Hg] Blood Pressure Diastolic (8462-4) 76 mm[Hg] 09/18/2024 08:21 AM Temperature (8310-5) 98.2 [degF] Oxygen Saturation (57334-2) 97 % Respiratory Rate (9279-1) 18 /min Heart Rate (8867-4) 96 /min Blood Pressure Systolic (8480-6) 140 mm[Hg] Blood Pressure Diastolic (8462-4) 80 mm[Hg] 09/18/2024 04:21 PM Blood Pressure Systolic (8480-6) 3 65 mm[Hg] Blood Pressure Diastolic (8462-4) 94 mm[Hg] Social History No smoking Hx information available Encounters Type CPT Code Date Location Provider Indication s encounter report 09/01/2024 02:40 PM Kurtis Ennis MD encounter report 09/01/2024 06:2 4 PM - 09/18/2024 04:41 PM Rio Ennis MD Advance Directives Directive Description Verification Date Supporting Document(s) Other Directive
--- OUTSIDE RECORDS SUMMARY | 2025-01-12 11:48 | XMS_ITS | Encounter Summary ---
Author Organization [facility] Address [address] [place] [address] Care Team Providers Care Technology Lead Name Role Phone HarveyberenicejesicaKristin beltran TRADITIONAL CHINESE HERBALIST Unavailable [phone] Maxim Lanza MD Primary Care Provider [phone] Encounter Details Date Type Department Care Team (Late st Contact Info) Description 11/30/2024 Orders Only [facility] [address] [place] [phone] Social History Tobacco Use Types Packs/Day Years [...] often do you attend chur ch or yarsani services? 1 to 4 times per year [...] 6 05/18/2024 [facility] - Occupational Stress Questionnaire Answer [...] Anatomical Region Laterality Modality Radiographic Ángela ging [facility] IMG XR PROCEDURES Final Result * XR chest 1 view (11/30/2024 9:26 AM EDT) Anatomical Region Laterality Modality Chest Radiographic Ángela ging [facility] IMG XR PROCEDURES Final Result documented in this encounter Visit Diagnoses Not on filedocumented in this encounter Additional Health Concerns Assessment Noted Time PHQ-9 Depression Total Score: 18 12/2 024 9:00 AM EST documented as of this encounter Care Teams Technology Lead Relationship Specialty Start Date End Date Maxim Lanza MD [address] [place] [phone] PCP - General Family Medicine 07/15/23 Kristin Gracia NP [address] [place] [phone] Primary Care Provider Family Medicine 05/20/22 documented as of this encounter
--- OUTSIDE RECORDS SUMMARY | 2025-01-12 11:48 | XMS_ITS | Encounter Summary ---
Author [facility] Address [id number] [address] [place] [address] Care Team Providers Care Sludge Mill Operator Name Role Phone HarveyKristin yu Tevin PREDATORY ANIMAL EXTERMINATOR-EMPLOYEE RELATIONS ASSISTANT Primary Care Provider Reason for Visit * Reason Onset Date Comments Prior Authorization 01/05/2025 TEMOZOLOMIDE Encounter Details Date Type Department Care Team (Late st Contact Info) Description 01/05/2025 Telephone [facility] [address] [place] [address] Loree Suggs, [facility] Prior Authorization (TEMOZOLOMIDE) Social History Tobacco Use Types Packs/Day Years Used Date Smoking Tobacco: Some Days Cigarettes Smokeless Tobacco: Never Alcohol Use Standard Drinks/Week Comments Never 0 (1 standard drink = 0.6 oz pur e alcohol) [facility] Utilities Answer Date Recorded In [...] encounter Miscellaneous Notes * Telephone Encounter - Matthew Velazquez - 01/05/2025 4:08 PM EDT Pharmacy PA team received PA request for TEMOZOLOMIDE. No prior authorization is required through patient's MEDICARE PART B pharmacy benefit. Test Claim Results Medication name, strength & form: TEMOZOLOMIDE 180MG CAPSULE Qty/Day Supply: 30 Days Result: No Prior Authorization required at this time Required to fill with Specialty Pharmacy: YES Eligible to fill at [facility] Special[facility] Pharmacy: NO Preferred Specialty Pharmacy: [id number] Estimated Co-pay at [facility]: Unable to determine cost due to specialty pharmacy requirement Medication Assistance: No copay assistance needed at this time. Was the patient contacted by PA team: Yes but was unable to leave a message. VM is full. documented in this encounter Plan of Treatment Upcoming Encounters Date Type Department Care Team (Late st Contact Info) Description 01/13/2025 10:30 AM EDT Appointment [facility] - Radiation Oncology [address] [place] [phone] 01/14/2025 10:30 AM EDT Appointment [facility] - Radiation Oncology [address] [place] [phone] 01/15/2025 10:30 AM EDT Appointment [facility] - Radiation Oncology [address] [place] [phone] 01/19/2025 9:45 AM EDT [facility] [address] [place] [phone] 01/19/2025 10:30 AM EDT [facility] [address] [place] [phone] 01/20/2025 10:30 AM EDT [facility] [address] [place] [phone] 01/21/2025 10:30 AM EDT Appointment [facility] On[facility] - Radiation Oncology [address] [place] [phone] 03/04/2025 11:15 AM EDT Office Visit Meera Albarado [facility] - Medical Oncology [address] [place] [phone] Guillermo Lundberg MD [address] [place] [address] [address] [place], [place] [id number] documented as of this encounter Goals Goal Patient Goal Type Associated Problems Recent Progress Patient-Stated? Author SNF General Yes Amparo Lamas LSW Note: Evaluation of progress towards goal: SNF recommended, pt agreeable to SNF stating she is not able to care for self at home at this time documented as of this encounter Visit Diagnoses Not on filedocumented in this encounter Care Teams Sludge Mill Operator Relationship Specialty Start Date End Date Kristin Gracia, PREDATORY ANIMAL EXTERMINATOR-EMPLOYEE RELATIONS ASSISTANT PCP - General Nurse Practitioner 08/28/24 documented as of this encounter
--- OUTSIDE RECORDS SUMMARY | 2025-01-12 11:48 | XMS_ITS | Encounter Summary ---
Author Organization [facility] Address [address] [place] [address] Care Team Providers Care Silica Spray Mixer Name Role Phone Kristin Gracia WESTERN TACK ASSEMBLY LINE WORKER Unavailable [phone] Maxim Lanza MD Primary Care Provider [phone] Encounter Details Date Type Department Care Team (Late st Contact Info) Description 11/30/2024 Abstract [facility] [address] [place] [address] Kristin Gracia NP [address] [place] [phone] Social History Tobacco Use Types Packs/Day Years [...] Patient Health Questionnaire-2 Score 6 05/18/2024 [facility] - Occupational [...] slept in a long-term (including now)? No 06/04/2023 Comments Unknown Sex [...] documented as of this encounter Care Teams Silica Spray Mixer Relationship Specialty Start Date End Date Maxim Lanza MD [address] [place] [phone] PCP - General Family Medicine 07/15/23 Kristin Gracia NP [address] [place] [phone] Primary Care Provider Family Medicine 05/20/22 documented as of this encounter
--- OUTSIDE RECORDS SUMMARY | 2025-01-12 11:48 | XMS_ITS | Encounter Summary ---
Author Organization [employer] Address [id number] [address] [place] [address] Care Team Providers Care Rn Relief Charge Name Role Phone HarveyKristin yu Tevin ANSARI-INSTRUMENTATION AND CONTROLS DESIGNER Primary Care Provider Reason for Visit * Reason Comments Med Refill Encounter Details Date Type Department Care Team (Late st Contact Info) Description 12/31/2024 Refill [facility] - Medical Oncology [address] [place] [address] Guillermo Lundberg MD [address] [place] [address] GBM (glioblastoma multiforme) ([facility]) Social History Tobacco Use Types Packs/Day Years Used Date Smoking Tobacco: Some Days Cigarettes Smokeless Tobacco: Never Alcohol Use Standard Drinks/Week Comments Never 0 (1 standard drink = 0.6 oz pur e alcohol) [facility] Utilities Answer Date Recorded In the past 12 months has [employer], gas, oil, or water [employer] threatened to shut off services in your [...] Description 01/13/2025 10:30 AM EDT Appointment [facility] - Radiation Oncology [address] [place] [phone] 01/14/2025 10:30 AM EDT Appointment [facility] - Radiation Oncology [address] [place] [phone] 01/15/2025 10:30 AM EDT Appointment [facility] - Radiation Oncology [address] [place] [phone] 01/19/2025 9:45 AM EDT Appointment [facility] - Radiation Oncology [address] [place] [phone] 01/19/2025 10:30 AM EDT Appointment [facility] - Radiation Oncology [address] [place] [phone] 01/20/2025 10:30 AM EDT Appointment [facility] - Radiation Oncology [address] [place] [phone] 01/21/2025 10:30 AM EDT Appointment [facility] - Radiation Oncology [address] [place] [phone] 03/04/2025 11:15 AM EDT Office Visit [facility] - Medical Oncology [address] [place] [address] Guillermo Lundberg MD [address] [place] [address] documented as of this encounter Goals Goal Patient Goal Type Associated Problems Recent Progress Patient-Stated? Author SNF General Yes Amparo Lamas LSW Note: Evaluation of progress towards goal: SNF recommended, pt agreeable to SNF stating she is not able to care for self at home at this time documented as of this encounter Visit Diagnoses Diagnosis GBM (glioblastoma multiforme) ([facility]) Malignant neoplasm of brain, unspecified site documented in this encounter Care Teams Rn Relief Charge Relationship Specialty Start Date End Date Kristin Gracia, OPEN SOAPER TENDER-INSTRUMENTATION AND CONTROLS DESIGNER PCP - General Nurse Practitioner 08/28/24 documented as of this encounter
--- OUTSIDE RECORDS SUMMARY | 2025-01-12 11:48 | XMS_ITS | Encounter Summary ---
Author Organization [employer] Address [id number] [address] [place] [address] Care Team Providers Care Tactical Debriefer Officer Name Role Phone HarveybereniceMamta perrya Tevin ANSARI-MISSILE PAD MECHANIC Primary Care Provider Encounter Details Date Type Department Care Team (Late st Contact Info) Description 11/13/2024 Documentation [facility] - Medical Oncology [address] [place] [address] Nancy Hernandez, RN Social History [...] Info) Description 01/13/2025 10:30 AM EDT [facility]ment [facility] [address] [place] [phone] 01/14/2025 10:30 AM EDT Appointment [facility] - Radiation Oncology [address] [place] [phone] 01/15/2025 10:30 AM EDT Appointment [facility] - Radiation Oncology [address] [place] [phone] 01/19/2025 9:45 AM EDT [facility]ment [facility] [address] [place] [phone] 01/19/2025 10:30 AM EDT [facility]ment [facility] [address] [place] [phone] 01/20/2025 10:30 AM EDT Appointment [facility] - Radiation Oncology [address] [place] [phone] 01/21/2025 10:30 AM EDT Appointment [facility] - Radiation Oncology [address] [place] [phone] 03/04/2025 11:15 AM EDT Office Visit Meera Alves [facility] - Medical Oncology [address] [place] [phone] Guillermo Lundberg MD [address] [place] [address] [address] [place] [address] documented as of this encounter Goals Goal Patient Goal Type Associated Problems Recent Progress Patient-Stated? Author SNF General Yes Amparo Lamas LSW Note: Evaluation of progress towards goal: SNF recommended, pt agreeable to SNF stating she is not able to care for self at home at this time documented as of this encounter Visit Diagnoses Not on filedocumented in this encounter Care Teams Tactical Debriefer Officer Relationship Specialty Start Date End Date Kristin Gracia, ELAN-MISSILE PAD MECHANIC PCP - General Nurse Practitioner 08/28/24 documented as of this encounter
--- OUTSIDE RECORDS SUMMARY | 2025-01-12 11:48 | XMS_ITS | Encounter Summary ---
Author Organization [facility] Address [address] [place] [address] Care Team Providers Care Cloth Shrinking Machine Operator Name Role Phone Kristin Gracia TELEMARKETING AGENT Unavailable [phone] Maxim Lanza MD Primary Care Provider Encounter Details Date Type Department Care Team (Late st Contact Info) Description 11/30/2024 Abstract [facility] [address] [place] [address] Kristin Gracia NP [address] [place] [phone] Social History Tobacco Use Types Packs/Day Years [...] any clubs o r organizations such as sikh groups, unions, fraternal or athletic groups, or [...] documented as of this encounter Care Teams Cloth Shrinking Machine Operator Relationship Specialty Start Date End Date Maxim Lanza MD [address] [place] [phone] PCP - General Family Medicine 07/15/23 Kristin Gracia NP [address] [place] [phone] Primary Care Provider Family Medicine 05/20/22 documented as of this encounter
--- OUTSIDE RECORDS SUMMARY | 2025-01-12 11:48 | XMS_ITS | Encounter Summary ---
Author Organization [facility] Address [id number] [address] [place] [address] Care Team Providers Care Assembly Line Robot Operator Name Role Phone HarveyKristin yu Tevin KEY RINGER-BLUE PRINT CONTROL CLERK Primary Care Provider Encounter Details Date Type Department Care Team (Late st Contact Info) Description 09/19/2024 Orders Only [facility] External Film Storage [address] [place] [phone] Transcribe, Orders Support User Pain (Primary Dx) Social History Tobacco Use Types Packs/Day Years Used Date Smoking Tobacco: Some Days Cigarettes Smokeless Tobacco: Never Alcohol Use Standard Drinks/Week Comments Never 0 (1 standard drink = 0.6 oz pur e alcohol) [facility] Utilities Answer Date Recorded In the past [...] Description 01/13/2025 10:30 AM EDT Appointment [facility] - Radiation Oncology [address] [place] [phone] 01/14/2025 10:30 AM EDT Appointment [facility]iation Oncology [address] [place] [phone] 01/15/2025 10:30 AM EDT Appointment [facility] - Radiation Oncology [address] [place] [phone] 01/19/2025 9:45 AM EDT Appointment [facility] Radiation Oncology [address] [place] [phone] 01/19/2025 10:30 AM EDT Appointment [facility] - Radiation Oncology [address] [place] [phone] 01/20/2025 10:30 AM EDT Appointment [facility] - Radiation Oncology [address] [place] [phone] 01/21/2025 10:30 AM EDT Appointment [facility] - Radiation Oncology [address] [place] [phone] 03/04/2025 11:15 AM EDT Office Visit Meera Alves [facility] - Medical Oncology [address] [place] [phone] Guillermo Lundberg MD [address] [facility] [address] [place] [address] documented as of this encounter Goals Goal [...] pain documented in this encounter Care Teams Assembly Line Robot Operator Relationship Specialty Start Date End Date Kristin Gracia, KEY RINGER-BLUE PRINT CONTROL CLERK PCP - General Nurse Practitioner 08/28/24 documented as of this encounter
--- OUTSIDE RECORDS SUMMARY | 2025-01-12 11:48 | XMS_ITS | Encounter Summary ---
Author Organization [facility] tem Address [id number] [address] [place] [address] Care Team Providers Care Die Designer Name Role Phone HarveybereniceKristin perry WHARF ATTENDANT-CYLINDER MACHINE OPERATOR Primary Care Provider Encounter Details Date Type Department Care Team ([facility] st Contact Info) Description 11/11/2024 Telephone [facility] Hematology Oncology, A Department of [facility] [address] [facility] [address] [place] [phone] Ellie Coleman CMA Social History Tobacco Use Types Packs/Day Years Used Date Smoking Tobacco: Some Days Cigarettes Smokeless Tobacco: Never Alcohol Use Standard Drinks/Week Comments Never 0 (1 standard drink = 0.6 oz pur e alcohol) [facility] Utilities Answer Date Recorded In [...] Description 01/13/2025 10:30 AM EDT Appointment [facility] - Radiation Oncology [address] [place] [phone] 01/14/2025 10:30 AM EDT Appointment [facility] - Radiation Oncology [address] [place] [phone] 01/15/2025 10:30 AM EDT Appointment [facility] - Radiation Oncology [address] [place] [phone] 01/19/2025 9:45 AM EDT Appointment [facility] - Radiation Oncology [address] [place] [phone] 01/19/2025 10:30 AM EDT Appointment [facility] - Radiation Oncology [address] [place] [phone] 01/20/2025 10:30 AM EDT Appointment [facility] - Radiation Oncology [address] [place] [phone] 01/21/2025 10:30 AM EDT Appointment [facility] - Radiation Oncology [address] [place] [phone] 03/04/2025 11:15 AM EDT Office Visit Meera Alves [facility] - Medical Oncology [address] [place] [phone] Guillermo Lundberg MD [address] [place] [address] [address] [place] [address] documented as of this encounter Goals Goal Patient Goal Type Associated Problems Recent Progress Patient-Stated? Author SNF General Yes Amparo Lamas LSW Note: Evaluation of progress towards goal: SNF recommended, pt agreeable to SNF stating she is not able to care for self at home at this time documented as of this encounter Visit Diagnoses Not on filedocumented in this encounter Care Teams Die Designer Relationship Specialty Start Date End Date Kristin Gracia, WHARF ATTENDANT-CYLINDER MACHINE OPERATOR PCP - General Nurse Practitioner 08/28/24 documented as of this encounter
--- OUTSIDE RECORDS SUMMARY | 2025-01-12 11:48 | XMS_ITS | Encounter Summary ---
Author Organization [facility] Address [address] [place] [address] Care Team Providers Care Certified Physical Therapist Assistant Name Role Phone Kristin Gracia TUBE LANCER Unavailable [phone] Maxim Lanza MD Primary Care Provider [phone] Encounter Details Date Type Department Care Team (Late st Contact Info) Description 11/30/2024 Abstract [facility] [address] [place] [phone] Kristin Gracia NP [address] [place] [phone] Social History Tobacco Use Types Packs/Day Years [...] How often do you attend chur or hoahaoism services? 1 to 4 times per year [...] Recorded Patient Health Questionnaire-2 Score 6 05/18/2024 [facility] - Occupational [...] documented as of this encounter Care Teams Certified Physical Therapist Assistant Relationship Specialty Start Date End Date Maxim Lanza MD [address] [place] [phone] PCP - General Family Medicine 07/15/23 Kristin Gracia NP [address] [place] [phone] Primary Care Provider Family Medicine 05/20/22 documented as of this encounter
--- OUTSIDE RECORDS SUMMARY | 2025-01-12 11:48 | XMS_ITS | Encounter Summary ---
Author Organization [employer] [facility] Address [id number] [address] [place] [address] Care Team Providers Care Utility Maintenance Worker Name Role Phone HarveyKristin yu Tevin ANSARI-BUSINESS ASST Primary Care Provider Encounter Details Date Type Department Care Team (Late st Contact Info) Description 11/13/2024 Orders Only [facility] - Medical Oncology [address] [place] [address] Guillermo Lundberg MD [address] [facility] [address] [place], [place] [id number] GBM (glioblastoma multiforme) ([facility]) (Primary Dx) Social History Tobacco Use Types Packs/Day Years Used Date Smoking Tobacco: Some Days Cigarettes Smokeless Tobacco: Never Alcohol Use Standard Drinks/Week Comments Never 0 (1 standard drink = 0.6 oz pur e alcohol) [facility] Utilities Answer Date Recorded In the past 12 months has [employer] gas, oil, or water [employer] threatened to shut off services in [...] Description 01/13/2025 10:30 AM EDT Appointment [facility] - Radiation Oncology [address] [place] [phone] 01/14/2025 10:30 AM EDT Appointment [facility] - Radiation Oncology [address] [place] [phone] 01/15/2025 10:30 AM EDT Appointment [facility] - Radiation Oncology [address] [place] [phone] 01/19/2025 9:45 AM EDT Appointment [facility] - Radiation Oncology [address] [place] [phone] 01/19/2025 10:30 AM EDT Appointment [facility] - Radiation Oncology [address] [place] [phone] 01/20/2025 10:30 AM EDT Appointment [facility] - Radiation Oncology [address] [place] [phone] 01/21/2025 10:30 AM EDT Appointment [facility] - Radiation Oncology [address] [place] [phone] 03/04/2025 11:15 AM EDT Office Visit Meera Albarado [facility] - Medical Oncology [address] [place] [address] Guillermo Lundberg MD [address] [facility] [address] [place] [address] documented as of this encounter Goals Goal Patient Goal Type Associated Problems Recent Progress Patient-Stated? Author SNF General Yes Amparo Lamas LSW Note: Evaluation of progress towards goal: SNF recommended, pt agreeable to SNF stating she is not able to care for self at home at this time documented as of this encounter Visit Diagnoses Diagnosis GBM (glioblastoma multiforme) ([facility])- Primary Malignant neoplasm of brain, unspecified site documented in this encounter Care Teams Utility Maintenance Worker Relationship Specialty Start Date End Date Kristin Gracia APRN-BUSINESS ASST PCP - General Nurse Practitioner 08/28/24 documented as of this encounter
--- OUTSIDE RECORDS SUMMARY | 2025-01-12 11:48 | XMS_ITS | Encounter Summary ---
Author Organization [employer] tem Address [facility] [id number] [address] [place] [address] Care Team Providers Care Emt I/85 Name Role Phone Harveyberenicevicky Kristin Tevin SENIOR ACCOUNTING ASSOCIATE-CLOTH SHEARER Primary Care Provider Encounter Details Date Type Department Care Team (Latest Contact Info) Description 01/04/2025 Travel Social History Tobacco Use Types Packs/Day Years Used Date Smoking Tobacco: Some Days Cigarettes Smokeless Tobacco: Never Alcohol Use Standard Drinks/Week Comments Never 0 (1 standard drink = 0.6 oz pur e alcohol) [facility] Utilities Answer Date Recorded In [...] 01/13/2025 10:30 AM EDT Appointment [facility] - Radiation Oncology [address] [place] [phone] 01/14/2025 10:30 AM EDT Appointment [facility] - Radiation Oncology [address] [place] [phone] 01/15/2025 10:30 AM EDT Appointment [facility] - Radiation Oncology [address] [place] [phone] 01/19/2025 9:45 AM EDT Appointment [facility] - Radiation Oncology [address] [place] [phone] 01/19/2025 10:30 AM EDT Appointment [facility] - Radiation Oncology [address] [place] [phone] 01/20/2025 10:30 AM EDT [facility] [address] [place] [phone] 01/21/2025 10:30 AM EDT Appointment [facility] - Radiation Oncology [address] [place] [phone] 03/04/2025 11:15 AM EDT Office Visit [facility] - Medical Oncology [address] [place] [phone] Guillermo Lundberg MD [address] [place] [address] [address] [place] [address] documented as of this encounter Goals [...] on filedocumented in this encounter Care Teams Emt I/85 Relationship Specialty Start Date End Date Kristin Gracia, SENIOR ACCOUNTING ASSOCIATE-CLOTH SHEARER PCP - General Nurse Practitioner 08/28/24 documented as of this encounter
--- OUTSIDE RECORDS SUMMARY | 2025-01-12 11:48 | XMS_ITS ---
Author Organization [facility] [facility] Address [id number] [address] [place] [address] Care Team Providers Care Bearing Inspector Name Role Phone HarveyKristin uy Tevin DISK AND TAPE MACHINE TENDER-LIFE CARE PLANNER Primary Care Provider Active Problems Problem Noted [...] information found. Past Treatment and Therapy Plans Past Radiation Episodes * Radiation TherapyOverview* First Treatment Date Last Treatment Date Treatment Site Technique Goal Episod e Provider 12/07/2024 01/12/2025 * Linked Problems Treatment Courses* Course C1 12/07/2024 - 01/12/2025 Treatment Period Fraction Dose Fractions Total Dose Plans Planned Rt Temportal Lobe Boost; IMRT VMAT [RTempLobeBst] 01/11/2025 - 01/12/2025 200 2 / 7 1,400 Rt Temportal Lobe and Edema; IMRT VMAT [RtTempLobeEd] 12/07/2024 - 01/08/2025 200 23 / 23 4,600 Reference Points Delivered Rx Brain 12/07/2024 - 01/12/2025 5,000 Lifetime Dose Tracking * Chemical Lifetime Dose Automatic Entry Manual Entr y Fluoroscopy 7.3 mGy 7.3 mGy 0 mGy
--- OUTSIDE RECORDS SUMMARY | 2025-01-12 11:48 | XMS_ITS | Encounter Summary ---
Author Organization [facility] Address [address] [place] [address] Care Team Providers Care Abrasive Water Jet Cutter Operator Name Role Phone Kristin Gracia AUDIO VISUAL SPECIALIST Unavailable [phone] Maxim Lanza MD Primary Care Provider Encounter Details Date Type Department Care Team (Late st Contact Info) Description 11/30/2024 Abstract [facility] [address] [place] [phone] Kristin Gracia NP [address] [place] [phone] Social History Tobacco Use Types Packs/Day Years [...] How often do you attend chur or yazidism services? 1 to 4 times per year [...] documented as of this encounter Care Teams Abrasive Water Jet Cutter Operator Relationship Specialty Start Date End Date Maxim Lanza MD [address] [place] [phone] PCP - General Family Medicine 07/15/23 Kristin Gracia NP [address] [place] [phone] Primary Care Provider Family Medicine 05/20/22 documented as of this encounter
--- OUTSIDE RECORDS SUMMARY | 2025-01-12 11:54 | XMS_ITS | CCD ---
Author Organization [facility] [place] [facility] Care Team Providers Care Skiver Sock Linings Name Role Phone August GEOTECHNICIAL PROPERTIES TECHNICIAN Unavailable Unavailable August GEOTECHNICIAL PROPERTIES TECHNICIAN Unavailable Unavailable August GEOTECHNICIAL PROPERTIES TECHNICIAN Unavailable Unavailable Jaleesa Lara Unavailable [facility], [facility] Primary Care Provider MD Liyah Rosa Attending Provider [phone] Valdez Acosta MD Primary Care Provider [phone] Liyah Rosa Unavailable Valdez Acosta MD Primary Care Provider [phone] Valdez Acosta MD Primary Care Provider AICHHOLZ, GEOTECHNICIAL PROPERTIES TECHNICIAN FRED Admitting Unavailable AICHHOLZ, GEOTECHNICIAL PROPERTIES TECHNICIAN FRED Attending Unavailable AICHHOLZ, GEOTECHNICIAL PROPERTIES TECHNICIAN FRED Primary Care Unavailable LINDA ., YAHAIRA Consulting Unavailable LINDA ., YAHAIRA Admitting Unavailable TAMHENNAN .YAHAIRA Attending Unavailable AICHHOLZ, GEOTECHNICIAL PROPERTIES TECHNICIAN FRED Primary Care Unavailable TAMLYN ., YAHAIRA Consulting Unavailable THEA LYNN Consulting Unavailable YASH CALLAHAN Consulting Unavailable AICHHOLZ, GEOTECHNICIAL PROPERTIES TECHNICIAN FRED Admitting Unavailable AICHHOLZ, GEOTECHNICIAL PROPERTIES TECHNICIAN FRED Attending Unavailable AICHHOLZ, GEOTECHNICIAL PROPERTIES TECHNICIAN FRED Primary Care Unavailable AICHHOLZ, GEOTECHNICIAL PROPERTIES TECHNICIAN FRED Consulting Unavailable AICHHOLZ, GEOTECHNICIAL PROPERTIES TECHNICIAN FRED Admitting Unavailable AICHHOLZ, GEOTECHNICIAL PROPERTIES TECHNICIAN FRED Attending Unavailable AICHHOLZ, GEOTECHNICIAL PROPERTIES TECHNICIAN FRED Primary Care Unavailable AICHHOLZ, GEOTECHNICIAL PROPERTIES TECHNICIAN FRED Consulting Unavailable DR TULIO BULL Admitting Unavailable DR TULIO BULL Attending Unavailable AICHHOLZ, GEOTECHNICIAL PROPERTIES TECHNICIAN FRED Primary Care Unavailable MISC, DR DOCTOR Consulting Unavailable Aichholz MANAGER ENTERPRISE, Fred Unavailable Myla BENITEZ, Maxim Primary Care Provider [phone] Karla BENITEZ, Valdez Primary Care Provider JESSICA CLARKE Referring Unavailable PARISPARIS Rizzo Attending Unavailable DAHBAR, MAZEN Primary Care Unavailable ELIAZAR VAZQUEZ Attending Unavailable DAHBAR, MAZEN Primary Care Unavailable LASHAUN VASQUEZ Attending Unavailable YOUNG, JESSICA Referring Unavailable DAHBAR, MAZEN Primary Care Unavailable YOUNG, JESSICA Referring Unavailable VINCE, JESSICA Attending Unavailable DAHBAR, MAZEN Primary Care Unavailable SARTHAK ESCOBAR Referring Unavailable DAHBAR, MAZEN Primary Care Unavailable August L Primary Care Physician Unavailab le HELENA, AUGUST Primary Care Unavailable Brooks, Eliazar T Referring Unavailable Brooks, Eliazar T Attending Unavailable Brooks, Eliazar T Admitting Unavailable NONE, XXXX Primary Care Physician Unavailab Keli Montanez Unavailable Unavailable Aichholz MANAGER ENTERPRISE, Fred Unavailable Myla BENITEZ, Maxim Primary Care Provider Sarah FIGUEROA, Sherrie Unavailable John STUCCO APPLICATOR.GEOTECHNICIAL PROPERTIES TECHNICIAN, Elizabeth Lantigua Unavailable SHERRIE BOONE Attending Unavailabl [...] D Attending Unavailable AICHHOLZ, FRED Attending Unavailable Tripp Gruber MD Attending Provider [phone] FRED GRACIA Primary Care Unavailable KENROY PÉREZ Admitting Unavailable ONLY), [facility] (INPATIENT Consult ing Unavailable СЕРГЕЙ LYNCH Attending Unavailable MACIEJ, MUNIRA Attending Unavailable MACIEJ, MUNIRA Referring Unavailable BASIL, FRED Abarca Primary Care Unavailable MACIEJ, MUNIRA Attending Unavailable MACIEJ, MUNIRA Referring Unavailable BASIL, FRED Tevin Primary Care Unavailable Aicholruby STUCCO APPLICATOR-GEOTECHNICIAL PROPERTIES TECHNICIAN, Fred J Primary Care Provider PROVIDER, UNKNOWN Attending Unavailable PROVIDER, UNKNOWN Admitting Unavailable Aicholruby STUCCO APPLICATOR-GEOTECHNICIAL PROPERTIES TECHNICIAN, Fred Abarca Primary Care Provider Harveyvicky STUCCO APPLICATOR-GEOTECHNICIAL PROPERTIES TECHNICIAN, Fred Abarca Primary Care Provider Alonzo Holguin MD Attending Provider [phone] Storm Chapman MD Attending Provider [phone] NON STAFF Primary Care Provider Unavailabl Eliazar Trejo Admitting Unavailable Eliazar Brooks Attending Unavailable Zbigniew Eliazar T Referring Unavailable August Primary Care Unavailable Silvia Bustos Attending Unavailable HENRY MATTHEWS Attending Unavailab HENRY Cerrato Attending Unavailab Eliazar Barrera Attending Unavailable Zbigniew, Eliazar T Referring Unavailable Eliazar Brooks T Admitting Unavailable SARY COLIN Primary Care Physician Miri Muniz DO Attending Provide r Tripp Gruber Admitting Unavailable Tripp Gruber Attending Unavailable Alonzo Holguin Admitting Unavailable Alonzo Holguin Attending Unavailable Miri Muniz Admitting Unav Miri Irvin Attending Unav ailable FRED GRACIA Primary Care Unavailable MIRIAM CHURCH Consulting Unavailable SHEILA JUNG Admitting Unavailable JULIO FERNANDEZ Attending Unavailable JAIR ESPINAL Consulting Unavailable [facility], INCDread Consulti aline Unavailable CARDIOLOGY, [facility] Consulting Unavailable SKYE LARA Consulting Unavailab JULIO Gould Referring Unavailable AICHHOLZ, FRED J Primary Care Unavailable AICHHOLZ, FRED J Referring Unavailable AICHHOLZ, FRED J Primary Care Unavailable AICHHOLZ, FRED J Referring Unavailable AICHHOLZ, FRED J Primary Care Unavailable AICHHOLZ, FRED J Referring Unavailable AICHHOLZ, FRED J Primary Care Unavailable REJI GARCIA Attending Unavailable AICHHOLZ, FRED J Referring Unavailable AICHHOLZ, FRED J Primary Care Unavailable AICHHOLZ, FRED J Referring Unavailable AICHHOLZ, FRED J Primary Care Unavailable REJI GARCIA Attending Unavailable Stephanie Aguillon DO Attending Provider [phone] ADONAY CASTILLO Attending Unavailable AICHHOLZ, FRED J Referring Unavailable AICHHOLZ, FRED J Primary Care Unavailable GUILLERMO MENDOZA Attending Unavailable REJI GARCIA Referring Unavailable AICHHOLZ, FRED J Primary Care Unavailable AICHHOLZ, FRED J Referring Unavailable AICHHOLZ, FRED J Primary Care Unavailable RICHIE SANDOVAL Attending Unavailable SAPPHIRE SANDOVALT Referring Unavailable AICHHOLZ, FRED J Primary Care [...] Primary Care Unavailable GUILLERMO MENDOZA Attending Unavailable AICHHOLZ, FRED J Referring Unavailable [...] Primary Care Unavailable GUILLERMO MENDOZA Attending Unavailable AICHHOLZ, FRED J Referring Unavailable [...] Unavailable AICHHOLZ, FRED J Primary Care Unavailable Allergies Allergy Classification Reported Allergen(s) Allergy Type Date of Onset Reaction(s) Facility (1 source) -No Environmental Allergies Allergy to substance [facility] Work Phone: (2 sources) Acetaminophen / HYDROcodone; Translations: [Vicodin] Drug Allergy [facility] (2 sources) Penicillins; Translations: [penicillins] Propensity to adverse reactions (disorder) [facility] Medications Current Medications Medication Drug [...] hours as needed for shoulder surgical pain., [employer] #72, 167.7, cm, 02/05/24 11:09:00 EDT, Height/Length Dosing, 131.3, kg, 02/05/24 11:09:00 EDT, Weight Dosing Start Date: 02/06/24 Status: Ordered Start: 02-06-2024 End: 04-15-2024 Percocet 5 mg-325 mg oral ta blet See Instructions, 40 tab(s), Refill(s) 0, Take one to two oral every 4 hours as needed for shoulder surgical pain., [employer] #72, 167.7, cm, 02/05/24 11:09:00 EDT, [...] hours as needed for wheezing and dyspnea amoxicillin 875 mg oral tablet (4 sources) [...] oral solution (1 source) alpha-Adrenergic Agonist, Uncompetitive L-smziop-L-aspartat e Receptor Antagonist, Sigma-1 Agonist Start: 04-15-2024 [...] 03/01/2024 Active bumetanide 2 mg oral tablet (20 sources) Loop Diuretic Start: 11-06-2024 End: 12-29-2024 bumetanide (BUMEX) 2 mg tablet 11/06/2024 Active buPROPion hydrochloride 75 mg oral tablet (1 source) Aminoketone Start: 06-30-2016 take 1 tablet by mouth once daily Wellbutrin 75 mg Tab 75 mg = 1 tab(s), Oral, Daily Start Date: 06/30/16 Status: Ordered busPIRone hydrochloride 7.5 mg oral tablet (20 sources) Start: 09-15-2024 busPIRone (BUSPAR) 7.5 mg tablet Take 1 tablet (7.5 mg total) by mouth. 09/15/2024 Active Start: 08-18-2024 End: 09-29-2024 busPIRone (BUSPAR) 7.5 [...] 10/09/24 Status: Ordered Repeat number: 1 Start: 10-09-2024 take 1 mg by mouth [...] Ordered docusate sodium 100 mg oral capsule (3 sources) Start: 11-19-2024 take 1 capsule by mouth twice daily Docusate Sodium (Colace) 100 mg capsule Active 100 MG PO Twice daily November 19, 2024 12:00am Complies with drug therapy docusate sodium 50 mg / sennosides, correction 8.6 mg oral tablet (20 sources) Start: [...] 90 tablet 1 06/05/2023 Active Estrogens, Conjugated (ALF) / medroxyPROGESTERone (1 source) Progestin, Estrogen Start: 06-30-2016 ferrous sulfate 325 mg delayed release oral tablet (1 source) Start: 12-29-2024 take 1 tablet by mouth twice daily Ferrous Sulfate 325 mg (65 mg iron) tablet,delayed release (DR/EC) Active 325 MG PO Twice daily December 29, 2024 12:00am Complies with drug therapy fluticasone propionate 0.05 mg/actuat metered dose nasal [...] twelve hours levoFLOXacin 500 mg oral tablet (20 sources) Quinolone Antimicrobial Start: 11-09-2024 End: 12-29-2024 take 1 tablet by mouth in the morning levoFLOXacin (LEVAQUIN) 500 mg tablet Take 1 tablet (500 mg total) by mouth in the morning. End 11/24/24. 11/09/2024 Active 50 ml magnesium sulfate 40 mg/ml injection (2 sources) Start: 09-19-2024 Start: 09-19-2024 melatonin 5 mg oral tablet (3 sources) Start: 11-19-2024 take 1 tablet by mouth once daily at bedtime as needed Melatonin 5 mg tablet Active 5 MG PO Daily at bedtime as needed November 19, 2024 12:00am Complies with drug therapy methenamine hippurate 1000 mg oral tablet (1 source) Start: 12-29-2024 Methenamine Hippurate 1 gram tablet Active 1 GM PO Twice daily December 29, 2024 12:00am Complies with drug therapy metoprolol tartrate 25 mg oral tablet (20 sources) beta-Adrenergic Jose Start: 11-19-2024 End: 12-29-2024 take 1 tablet by mouth once daily Metoprolol Succinate 100 mg tablet extended release 24 hr Discontinued 100 MG PO Daily November 19, 2024 12:00am December 29, 2024 2:03pm Start: 09-22-2024 End: 09-24-2024 Start: 09-21-2024 End: [...] 05/21 - 06/14/2018 Provider: Conversion Provider End: 04-01-2025 naproxen (Naprosyn) 250 MG t ablet Take by mouth 08/18/2024 Discontinued (Therapy completed) nystatin 100 unt/mg topical powder (20 sources) Polyene Antifungal Start: 08-23-2024 End: 08-23-2025 nystatin (MYCOSTATIN) powder Apply topically in the morning and before bedtime. 08/23/2024 08/23/2025 Active Start: 08-23-2024 End: 08-23-2025 nystatin (Mycostatin) 285082 UNIT/GM powder Indications: Yeast dermatitis Apply topically 2 (two) times a day 60 g 1 08/23/2024 08/23/2025 Active Start: 03-05-2024 End: 03-20-2024 nystatin (Mycostatin) [id number] UNIT/GM powder Indications: Candidiasis of skin Apply topically 2 (two) times a day for 15 days Apply to affected areas 60 g 1 03/05/2024 03/20/2024 Active End: 03-05-2024 nystatin (Mycostatin) [id number] UNIT/GM powder Apply topically 2 (two) times a day 03/05/2024 Discontinued (Reorder) ocrelizumab (OCREVUS INTRAVE NOUS) (20 sources) ocrelizumab (OCR EVUS INTRAVENOUS) Inject 600 mg intravenously once every 6 months. Active ocrelizumab (OCR EVUS INTRAVENOUS) Inject 600 mg intravenously once every 6 months. 0 Active Comment on above: Inject 600 mg intrav enously once every 6 months. ondansetron 8 mg oral tablet (15 sources) Serotonin-3 Receptor Antagonist Start: 11-20-19 take [...] Cholinergic Muscarinic Antagonist Start: 08-24-19 End: 09-23-19 25 take 1 tablet by mouth once daily oxybutynin XL (Ditropan-XL) 5 MG 24 hr tablet Indications: Mixed stress and urge urinary incontinence Take 1 tablet (5 mg) by mouth Daily Do not crush, chew, or split. 30 tablet 1 08/23/2024 09/22/2024 Active Start: 03-07-2022 End: 07-10-2023 oxybutynin XL (DITROPAN XL) 5 mg 24 hr tablet polyethylene glycol 3350 38817 mg powder for oral solution (1 source) Osmotic Laxative Start: 09-19-2024 potassium chloride 20 meq extended release oral tablet (20 sources) Start: 12-29-2024 Potassium Chlo ride 20 mEq tablet extended release Active MEQ PO December 29, 2024 12:00am Complies with drug therapy Start: 11-19-2024 End: 12-29-2024 take 1 tablet by mouth once daily Potassium Chloride 10 mEq tablet extended release Discontinued 10 MEQ PO Daily November 19, 2024 12:00am December 29, 2024 2:04pm Start: 11-06-2024 potassium chlo ride (KLOR-CON SPRINKLE) [...] Active Psyllium (1 source) Metamucil Active sennosides, correction 3 mg chewable tablet (1 source) Start: take 1 mg by mouth once daily senna (sennosides) 3 mg oral tablet, chewable mg tab(s), Chewed, Daily, Refills(s) 0 Start Date: 10/09/24 Status: Ordered Repeat number: 1 sulfamethoxazole 800 mg / trimethoprim 160 mg oral tablet (15 sources) Dihydrofolate Reductase Inhibitor Antibacterial, Sulfonamide Antimicrobial Start: End: sulfamethoxazole-tr imethoprim (BACTRIM DS) 800-160 mg per tablet Indications: GBM (glioblastoma multiforme) (CMS-HCC) Take 1 tab daily, on Saturday and every week. 60 tablet 1 11/19/2024 11/19/2025 Active temozolomide 180 mg oral capsule (17 sources) Alkylating Drug Start: End: take 1 capsule by mouth once daily temozolomide (TEMODAR) 180 MG chemo capsule Indications: GBM (glioblastoma multiforme) (CMS-HCC) Take 1 capsule by mouth daily 30 capsule 12/31/2024 Active traZODone hydrochloride 50 mg oral tablet (20 sources) Serotonin Reuptake Inhibitor Start: Trazodone 50 mg tablet Active 25 MG PO Daily at bedtime as needed November 19, 2024 12:00am Complies with drug therapy Start: 02-05-2024 traZODone (NATHALIE YREL) 50 mg tablet Take 0.5 tablets (25 mg total) by mouth. 02/05/2024 Active Start: 02-05-2024 take 1 tablet by katharina th once daily at bedtime as needed for [...] Start: 06-14-2018 End: 06-14-2018 TRAZODONE 50 mg [facility] 019 - 06/14/2018 Provider: Start: 05-30-2017 End: 05-30-2017 [facility] - 05/30/2017 Provider: vitamin B12 (12 sources) Vitamin B12 Start: 02-05-2024 take 2500 ug under the tongue once daily Vitamin B12 2,500 mcg, SubLingual, Daily, Refills(s) 0, Prophylaxis Start Date: 02/05/24 Status: Ordered take 1 tablet by mouth once dot y cyanocobalamin (VITAMIN B-12) 1,000 mcg tab Take 1,000 mcg by mouth once daily. Active Comment on above: Take 1,000 mcg by [facility] once daily. Vitamin D (2 [...] 90-80 mcg/actuation HFA aerosol inhaler Albuterol Active Amino Acids-Protein Hydrolys (Pro-Stat Sugar Free) 15-100 gram-kcal/30 mL liquid (3 sources) Start: 11-19-2024 End: 12-29-2024 Amino Acids-Protein Hydrolys (Pro-Stat Sugar Free) 15-100 gram-kcal/30 mL liquid Discontinued 1 EACH PO Twice daily November 19, 2024 12:00am December 29, 2024 1:59pm Start: 11-19-2024 Start: 11-19-2024 Amino Acids-Pr otein Hydrolys (Pro-Stat Sugar Free) 15-100 gram-kcal/30 mL liquid Active 1 EACH PO Twice daily November 19, 2024 12:00am Complies with drug therapy amitriptyline hydrochloride 25 mg oral tablet (20 [...] Nonsteroidal Anti-inflammatory Drug Start: 07-15-19 End: 03-16-20 take 1 tablet by mouth once daily [...] take 2 tablets by mo [facility] twice daily as needed for muscle spasms [...] End: 09-24-19 FLUoxetine 20 mg oral capsule (17 sources) Serotonin Reuptake Inhibitor Start: 09-06-19 End: [...] Take 15 mg by mouth every morning. 10 ml ocrelizumab 30 mg/ml injection (20 sources) Start: 2 End: 5 Ocrelizumab (Ocrevus) 30 mg/mL Solution Discontinued 600 MG IV EVERY 6 MONTHS September 05, 2021 12:00am November 19, 2024 3:15pm Comment on above: 10 mL. 50 ml sodium bicarbonate 84 mg/ml prefilled syringe (1 source) Start: End: 1000 ml sodium chloride 9 mg/ml injection (2 sources) Start: End: Start: 09-19-2024 End: 09-20-2024 teriflunomide 14 mg oral tablet (1 source) Pyrimidine Synthesis Inhibitor Start: 06-14-2018 End: 06-14-2018 Aubagio 14 MG OR TABS 06/14/2018 - 06/14/2018 Provider: Conversion Provider zinc oxide 0.2 mg/mg topical ointment (3 sources) Start: 11-19-2024 End: 12-29-2024 Zinc Oxide (Endit (Zinc Oxide)) 20 % ointment Discontinued 1 APPLIC TOPICAL Four times daily as needed November 19, 2024 12:00am December 29, 2024 2:04pm (4 sources) Start: 09-22-2024 End: 09-22-2024 Start: 09-21-2024 End: 09-21-2024 Start: 09-20-2024 End: 09-20-2024 Start: 09-19-2024 End: 09-19-2024 (1 source) Start: 09-20-2024 End: 09-20-2024 Problems Active Problems Problem Classification Problem Date Documented Da te Episodic/Chronic Acute and unspecified renal failure (8 sources) Acute renal failure syndrome; Translations: [Acute kidney failure, unspecified] Onset: 5 09-19-2024 Episodic Acute cerebrovascular disease (20 sources) Cerebrovascular accident; Translations: [Cerebral infarction, unspecified] Onset: 4 07-30-2023 Chronic Adjustment disorders (20 sources) Adjustment disorder with mixed anxiety and depressed mood; Translations: [Adjustment disorder with mixed anxiety and depressed mood] Onset: 3 10-02-2012 Chronic Anal and rectal conditions (5 sources) Rectal pain; Translations: [Other specified diseases of anus and rectum] Onset: 2 Resolved: 2 Episodic Anxiety disorders (20 sources) Mixed anxiety and depressive disorder; Translations: [Anxiety disorder, unspecified] Onset: 3 Resolved: 4 04-30-2023 Chronic Blindness and vision defects (6 sources) Diplopia; Translations: [Diplopia] Onset: 5 11-10-2024 Episodic Cancer of brain and nervous system (20 sources) Glioblastoma multiforme ; Translations: [Malignant neoplasm of brain, unspecified] Onset: 5 11-12-2024 Chronic Cardiac dysrhythmias (2 sources) Cardiac arrhythmia, unspecified; Translations: [Cardiac arrhythmia, unspecified] Onset: 5 Chronic Chronic obstructive pulmonary disease and bronchiectasis (20 sources) Chronic bronchitis; Translations: [Unspecified chronic bronchitis] Onset: 3 Resolved: 5 04-30-2023 Chronic Chronic ulcer of skin (2 sources) Pressure ulcer of left buttock, stage 2; Translations: [Pressure ulcer, buttock] Onset: 5 09-16-2024 Chronic Coagulation and hemorrhagic disorders (10 sources) Thrombocytopenic disorder; Translations: [Thrombocytopenia, unspecified] Onset: 5 12-10-2024 Chronic Disorders of lipid metabolism (20 sources) Hyperlipidemia, unspecified; Translations: [Hyperlipoproteinemia] Onset: 3 07-30-2023 Chronic Diverticulosis and diverticulitis (20 sources) Diverticular disease of colon; Translations: [Diverticulosis of intestine, part unspecified, without perforation or abscess without bleeding] Onset: 2 Resolved: 2 Chronic E Codes: Fall (1 source) Fall Onset: 5 Essential hypertension (20 sources) Essential (primary) hypertension; Translations: [Essential hypertension] Onset: 3 04-30-2023 Chronic Gastrointestinal hemorrhage (5 sources) Rectal hemorrhage; Translations: [Hemorrhage of anus and rectum] Onset: 2 Resolved: 2 Episodic Genitourinary symptoms and ill-defined conditions (20 sources) Incontinence; Translations: [Unspecified urinary incontinence] Onset: 4 10-10-2023 Chronic Hemorrhoids (3 sources) Hemorrhoids; Translations: [Unspecified hemorrhoids] Onset: 2 Resolved: 2 Episodic Miscellaneous mental health disorders (20 sources) Primary insomnia; Translations: [Primary insomnia] Onset: 3 04-30-2023 Chronic Mood disorders (20 sources) Depressive disorder; Translations: [Depression] Onset: 5 Resolved: 5 06-26-2023 Chronic Multiple sclerosis (20 sources) Relapsing remitting multiple sclerosis; Translations: [Multiple sclerosis] Onset: 3 Chronic Neoplasms of unspecified nature or uncertain behavior (6 sources) Neoplasm of brain; Translations: [Neoplasm of unspecified behavior of brain] Onset: 5 11-10-2024 Chronic Noninfectious gastroenteritis (1 source) Noninfective gastroenteritis and colitis, unspecified; Translations: [NONINFECTIVE GE AND COLITIS UNS] Onset: 3 Episodic Nutritional deficiencies (20 sources) Vitamin D deficiency; Translations: [Vitamin D deficiency, unspecified] Onset: 4 11-27-2023 Chronic Osteoarthritis (20 sources) Osteoarthritis of knee; Translations: [Osteoarthritis of knee, unspecified] Onset: 7 Resolved: 4 04-26-2023 Chronic Other acquired deformities (20 sources) Contracture of joint of right ankle; Translations: [Contracture, right ankle] Onset: 3 04-26-2023 Chronic Other and unspecified benign neoplasm (2 sources) Tubular adenoma ; Translations: [Benign neoplasm, unspecified site] Episodic Other and unspecified benign neoplasm (1 source) Benign neoplasm of sigmoid colon; Translations: [BENIGN NEOPLASM OF SIGMOID COLON] Onset: 3 Episodic Other circulatory disease (1 source) Personal history of transient ischemic attack (TIA), and cerebral infarction without residual deficits; Translations: [PERS HX TIA AND CI NO RESID DEFICIT] Onset: 3 Episodic Other congenital anomalies (20 sources) Cutis verticis gyrata; Translations: [Other specified congenital malformations of skin] Onset: 4 06-05-2023 Chronic Other connective tissue disease (1 [...] disease (1 source) Rhabdomyolysis; Translations: [Rhabdomyolysis] Onset: 5 Episodic Other gastrointestinal disorders (4 sources) Constipation; Translations: [Constipation, unspecified] Episodic Other gastrointestinal disorders (4 sources) Change in stool caliber; Translations: [Change in bowel habit] Episodic Other gastrointestinal disorders (2 sources) Change in bowel habit Onset: 2 Resolved: 2 Episodic Other gastrointestinal disorders (3 sources) Altered bowel function; Translations: [Other specified symptoms and signs involving the digestive system and abdomen] Episodic Other nervous system disorders (20 sources) Carpal tunnel syndrome; Translations: [Carpal tunnel syndrome, unspecified upper limb] Onset: 3 07-30-2023 Chronic Other nervous system disorders (20 sources) 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; Translations: [Lesion of ulnar nerve, bilateral upper limbs] Onset: 4 01-23-2024 Chronic Other nervous system disorders (20 sources) Cognitive deficit in communication skills; Translations: [Cognitive communication deficit] Onset: 5 09-16-2024 Chronic Other nervous system disorders (20 sources) Difficulty walking; Translations: [Difficulty in walking, not elsewhere classified] Onset: 5 09-16-2024 Chronic Other nervous system disorders (1 source) Mass lesion of brain; Translations: [Other specified disorders of brain] 09-19-2024 Chronic Other nervous system disorders (1 source) Other specified disorders of brain; Translations: [Other specified disorders of brain] Onset: 5 Chronic Other non-traumatic joint disorders (1 source) Disorder of joint of shoulder region; Translations: [Other specified joint disorders, left shoulder] Onset: 4 Episodic Other non-traumatic joint disorders (2 sources) Pain in left shoulder; Translations: [Pain in joint, shoulder region] 03-13-2024 Episodic Other nutritional; endocrine; and metabolic disorders (20 sources) Severe obesity; Translations: [Morbid (severe) obesity due to excess calories] Onset: 3 04-30-2023 Chronic Other nutritional; endocrine; and metabolic disorders (20 sources) Metabolic syndrome X; Translations: [Metabolic syndrome] Onset: 4 01-06-2024 Chronic Other nutritional; endocrine; and metabolic disorders (13 sources) Body mass index 40+ - severely obese; Translations: [Body mass index (BMI) 45.0-49.9, adult] Onset: 5 06-25-2024 Chronic Other nutritional; endocrine; and metabolic disorders (15 sources) Obesity caused by energy imbalance; Translations: [Morbid (severe) obesity due to excess calories] Onset: 5 06-25-2024 Chronic Residual codes; unclassified (20 sources) Obstructive sleep apnea syndrome; Translations: [Obstructive sleep apnea (adult) (pediatric)] Onset: 4 07-30-2023 Chronic Residual codes; unclassified (13 sources) History of arthroscopic procedure on shoulder; Translations: [Other specified postprocedural states] 02-24-2024 Episodic Residual codes; unclassified (2 sources) History of craniotomy; Translations: [Other specified postprocedural states] 09-29-2024 Episodic Residual codes; unclassified (2 sources) Other specified postprocedural states; Translations: [Other specified postprocedural states] Onset: 5 Episodic Substance-related disorders (4 sources) Nicotine dependence, unspecified, uncomplicated; Translations: [Smoker] Onset: 7 06-30-2016 Chronic Comment on above: Added secondary to d ocumentation in Social History. Transient cerebral ischemia (2 sources) Transient cerebral ischemia 02-05-2024 Chronic Comment on above: patient states she h ad a moment where she couldn't get words out and did not go to hospital but realized after that is what happened -- august 2020 Unclassified (1 source) Weakness - Generalized Onset: 5 Unclassified (1 source) EMS Onset: 5 Unclassified (1 source) Evaluation of Abnormal Diagnostic Test Onset: 5 Unclassified (1 source) 52 female Onset: 5 Unclassified (1 source) New Patient Onset: 5 Unclassified (1 source) Wound Check Onset: Urinary tract infections (2 sources) Urinary tract infectious disease; Translations: [Urinary tract infection, site not specified] Onset: 5 Episodic Past or Other Problems Problem Classification Problem Date Documented Da te Episodic/Chronic Acquired foot deformities (20 sources) Acquired hallux valgus; Translations: [Hallux valgus (acquired), unspecified foot] Onset: 04-26-2023 Resolved: 06-26-2023 04-26-2023 Chronic Administrative/social admission (20 sources) Finding of activity of daily living; Translations: [Limitation of activities due to disability] Onset: 09-03-2024 09-16-2024 Episodic Allergic reactions (2 sources) Irritant contact dermatitis; Translations: [Other specified dermatitis] Onset: 09-16-2024 09-16-2024 Episodic Genitourinary symptoms and ill-defined conditions (20 sources) Polyuria; Translations: [Polyuria] Onset: 01-06-2024 01-06-2024 Episodic Immunizations and screening for infectious disease (20 sources) Encounter for immunization; Translations: [Suspected clinical finding] Onset: 07-28-2020 07-30-2023 Episodic Joint disorders and dislocations; trauma-related (20 sources) Traumatic rupture of lumbar intervertebral disc; Translations: [Traumatic rupture of lumbar intervertebral disc, initial encounter] Onset: 09-01-2024 09-16-2024 Episodic Malaise and fatigue (20 sources) Weakness; Translations: [Asthenia] Onset: 08-28-2024 08-28-2024 Episodic Mood disorders (20 sources) Mood disorders Onset: 05-01-2023 Resolved: 05-18-2024 05-01-2023 Mycoses (20 sources) Candidiasis of skin; Translations: [Candidiasis of skin and nail] Onset: 03-05-2024 Resolved: 07-02-2024 03-05-2024 Episodic Nutritional deficiencies (20 sources) Nutritional deficiency state; Translations: [Nutritional deficiency, unspecified] Onset: 09-03-2024 09-16-2024 Episodic Other and unspecified benign neoplasm (1 source) Benign neoplasm, unspecified site Onset: 12-13-2021 Resolved: 12-13-2021 Episodic Other connective tissue disease (20 sources) Non-traumatic rhabdomyolysis; Translations: [Rhabdomyolysis] Onset: 08-28-2024 08-28-2024 Episodic Other connective tissue disease (20 sources) Muscle weakness; Translations: [Muscle weakness (generalized)] Onset: 09-02-2024 09-16-2024 Episodic Other connective tissue disease (20 sources) Rhabdomyolysis; Translations: [Rhabdomyolysis] Onset: 09-01-2024 09-16-2024 Episodic Other female genital disorders (1 source) Other specified noninflammatory disorders of vagina; Translations: [OTH SPEC NONINFLAMMATORY D/O VAGINA] Onset: 03-09-2022 Episodic Other gastrointestinal disorders (1 source) Constipation, unspecified Onset: 08-14-2021 Resolved: 08-14-2021 Episodic Other gastrointestinal disorders (1 source) Other specified symptoms and signs involving the digestive system and abdomen Onset: 12-13-2021 Resolved: 12-13-2021 Episodic Other gastrointestinal disorders (20 sources) Oropharyngeal dysphagia; Translations: [Dysphagia, oropharyngeal phase] Onset: 09-01-2024 09-16-2024 Episodic Other lower respiratory disease (3 sources) [...] Translations: [Generalized hyperhidrosis] Onset: 07-30-2023 Resolved: 07-30-2023 4 Episodic Other upper respiratory infections (20 sources) [...] Flushing; Translations: [Flushing] Onset: 07-30-2023 07-30-2023 Episodic Residual codes; unclassified (20 sources) Altered mental status; Translations: [Altered mental status, unspecified] Onset: 09-18-2024 09-29-2024 Episodic Residual codes; unclassified (1 source) Altered mental status, unspecified; Translations: [Altered mental status, unspecified] Onset: 09-19-2024 Episodic Residual codes; unclassified (1 source) Pain, unspecified; Translations: [Pain, unspecified] Onset: 09-19-2024 Episodic Skin and subcutaneous tissue infections (20 sources) Abscess; Translations: [Cutaneous abscess, unspecified] Onset: 01-06-2024 Resolved: 02-03-2024 02-03-2024 Episodic Spondylosis; intervertebral disc disorders; other back problems (20 sources) Cervical radiculopathy; Translations: [Radiculopathy, cervical region] Onset: 03-19-2015 06-26-2023 Episodic Results Test Name Value Interpretation Reference Range Facility Urine Cultureon 11-27-2024 Bacteria identified Cx Nom (U) ORGANISM: Enterococcus faecalis (O:ENTFAC) [place] Count >100,000 Aerobic ROSE Charge (PCMIC38) ---- SUSCEPTIBILITY --- ORGANISM: O:ENTFAC ANTIBIOTIC INTERPRETATION ROSE Ampicillin S <2 Ciprofloxacin R >2 Daptomycin S 1 Levofloxacin R >4 Linezolid S 2 Nitrofurantoin S <32 Penicillin S 2 Tetracycline R >8 Vancomycin S 1 S = SUSCEPTIBLE I = INTERMEDIATE R [...] RESISTANT TO ALL B-LACTAM DRUGS. PERFORMED BY: [place] [address] PATHOLOGIST DATA PROCESSING SYSTEMS CONSULTANT ADILENE GAMINO M.D. Normal [facility] Comment on above: Performed By: #### C UU #### [address] Urine cultureOrdered By: Lizzette Villafana on 11-27-2024 Bacteria identified Cx Nom (U) Enterococcus faecalis Abnormal [facility] Ambulatory Visit Summaryon 0 11-24-2024 Ambulatory Visit Summary Ambulatory Visi t Summary ANUPAMA VASQUEZ :1970 Visit Date:11/24/2024 Ambulatory Visit Instructions Your Diagnosis Urinary retention UTI (urinary tract infection) Your Care Team Attending Physician - BYRON FIGUEROA, REGINA Pedraza Primary Care Physician - SARY COLIN MD [...] signed up for this yet, please contact [employer] at [phone] to get signed up today. Language Information Language assistance services are available as needed. Normal [facility] Urology Office/Clinic Noteon 11-24-2024 Urology Office/Clinic Note [...] urine, unspecified) 10/09/24: Hx MS. Transferred from [facility] to [facility] on 09/18/24 d/t BRANDON, brain mass w shift and AMS. 1.5L retention upon admission w BRANDON (Corrosion Control Engineer 15.68) bilat hydro on US, improved to [...] that time. SINCE LAST OV: Admitted at [facility] 10/17-10/22 w Sepsis, NSTEMI, Heart Failure. Urine Cx showed Proteus. Alexis was dc'd on day of discharge (unclear why). Treated for another UTI 11/10 (Levaquin). Per heme/onc note (Guillermo Mendoza) pt starting chemo/radiation with palliative goals. Started pt on daily Bactrim #60. Seeing nephrology d/t acute on CKD. 11/07 Corrosion Control Engineer 3.05 TODAY: PVR 927ml. Pt does not have sensation of incomplete emptying. Comfortable. Voiding, mostly in brief. Advised we need to replace Alexis vs start CIC. Pt prefers indwelling Alexis. Order written for ECF to replace upon return to facility today and maintain w Q4wk changes. Ordered: [id number] Pain severity quantified; no pain present [address] Measure Post Void residual urine and/or bladder [...] Contact Information BYRON FIGUEROA, REGINA Pedraza, URL In 3 months [address] [place] [address] Additional Instructions: Patient Education Acute Urinary Retention, Female, [id number] Problem List/Past Medical History Ongoing Bipolar I [...] Smokeless Tobacco Use:. Cigarettes, Yes, 11/24/2024 Normal [facility] Comment on above: Result Comment: Elec tronically Signed By: REGINA MATTHEWS PA-C\.br\Date and Time Signed: 11/24/24 09:07 EDT MR BRAIN W WO CONTon 11-13- 025 MR BRAIN W WO CONT MR [...] right temporal lobe mass, compatible with high-grade CRAFT WORKER glioma. There is expected post surgical distortion [...] right temporal lobe mass, compatible with high-grade CRAFT WORKER glioma. Expected postsurgical distortion is noted, as [...] Grayson MD on 11/13/2024 11:34 AM Normal [facility] ALL BASIC METABOLIC PANELon 11-07-2024 Anion gap [Moles/Vol] 11.9 mmol/L [facility] Calcium [Mass/Vol] 8.5 mg/dL 8.5 - 10. 1 mg/dL [facility] Chloride [Moles/Vol] 108 mmol/L High 98 - 10 7 mmol/L [facility] CO2 [Moles/Vol] 32.8 mmol/L High 21.0 - 32.0 mmol/L [facility] Creatinine [Mass/Vol] 3.05 mg/dL High 0.55 - 1.02 mg/dL [facility] GFR/1.73 sq M.predicted CKD-EPI (S/P/Bld) [Vol rate/Area] 19 Low >=60 mL/min/1.7 3m 2 [facility] Glucose [Mass/Vol] 99 mg/dL 74 - 106 mg/dL [facility] Interpretation and review of laboratory results Abnormal [facility] Potassium [Moles/Vol] 3.7 mmol/L 3.5 - 5.1 mmol/L [facility] Sodium [Moles/Vol] 149 mmol/L High 136 - 145 mmol/L [facility] TBH EGFR-NON AF NAURUAN 16 Low >=6 0 mL/min/1.7 3m 2 [facility] Urea nitrogen [Mass/Vol] 36 mg/dL High 7.0 - 18.0 mg/dL [facility] Urea nitrogen/Creatinine [Mass ratio] 11.8 mg/mg [facility]24 Bacteria identified Cx Nom (U) ORGANISM: Proteus mirabilis (O:PROMIR) [place] Count >100,000 Aerobic ROSE Charge (NMIC56) ---- [...] RESISTANT TO ALL B-LACTAM DRUGS. PERFORMED BY: [place] [address] PATHOLOGIST DATA PROCESSING SYSTEMS CONSULTANT ADILENE GAMINO M.D. Normal [facility] Comment on above: Performed By: #### C UU #### [address] Urine cultureOrdered By: Michelle Holguin on 10-17-2024 Bacteria identified Cx Nom (U) Proteus mirabilis Abnormal [facility] Ambulatory Visit Summaryon 0 10-09-2024 Ambulatory Visit Summary Ambulatory Visi t Summary ANUPAMA VASQUEZ :1970 Visit Date:10/09/2024 Ambulatory Visit Instructions Your Diagnosis Urinary retention Your Care Team Attending Physician - BYRON FIGUEROA, REGINA Pedraza Primary Care Physician - SARY COLIN MD [...] choosing us for your care. Normal [facility] BASIC METABOLIC PANELon 05-1 Anion gap [Moles/Vol] 11 mmol/L Normal 5-15 [facility] Comment on above: Performed By: #### P INR #### [facility] ([facility]) [address] [place] [address] VIR Calcium [Mass/Vol] 8.8 mg/dL Normal 8.5-10.5 [facility] Comment on above: Performed By: #### P INR #### [facility] ([facility]) [address] [place] [address] VIR Chloride [Moles/Vol] 106 mmol/L Normal 98-109 [facility] Comment on above: Performed By: #### P INR #### [facility] ([facility]) [address] [place] [address] VIR CO2 [Moles/Vol] 23 mmol/L Normal 22-32 [facility] Comment on above: Performed By: #### P INR #### [facility] ([facility]) [address] [place] [address] VIR Creatinine [Mass/Vol] 0.74 mg/dL Normal 0.40-1.00 [facility] Comment on above: Result Comment: METH OD TRACEABLE TO IDMS STANDARD Performed By: #### P INR #### [facility] ([facility]) [address] [place] [address] VIR EGFR (CKD-EPI) NON-RACE DEPENDENT >^90 Normal >=60 [facility] Comment on above: Result Comment: Repo rted eGFR is based on the CKD-EPI 2020 equation that does not use a race coefficient. Performed By: #### P INR #### [facility] ([facility]) [address] [place] [address] VIR Glucose [Mass/Vol] 94 mg/dL Normal 65-99 [facility] Comment on above: Performed By: #### P INR #### [facility] ([facility]) [address] [place] [address] VIR Potassium [Moles/Vol] 4.4 mmol/L Normal 3.5-5.0 [facility] Comment on above: Performed By: #### P INR #### [facility] ([facility]) [address] [place] [address] VIR Sodium [Moles/Vol] 140 mmol/L Normal 134-146 [facility] Comment on above: Performed By: #### P INR #### [facility] ([facility]) [address] [place] [address] VIR Urea nitrogen [Mass/Vol] 26 mg/dL High 5-23 [facility] Comment on above: Performed By: #### P INR #### [facility] ([facility]) [address] [place] [address] VIR Basic Metabolic Panelon 09-17 Anion gap [Moles/Vol] 11 mmol/L 5 - 15 mmol/L [facility] Calcium [Mass/Vol] 8.8 mg/dL 8.5 - 10. 5 mg/dL [facility] Chloride [Moles/Vol] 106 mmol/L 98 - 10 9 mmol/L [facility] CO2 [Moles/Vol] 23 mmol/L 22 - 32 mmol/L [facility] Creatinine [Mass/Vol] 0.74 mg/dL 0.40 - 1.00 mg/dL [facility] EGFR Non-Race Dependent - PINF P [facility] Glucose [Mass/Vol] 94 mg/dL 65 - 99 mg/dL [facility] Interpretation and review of laboratory results Abnormal [facility] Potassium [Moles/Vol] 4.4 mmol/L 3.5 - 5.0 mmol/L [facility] Sodium [Moles/Vol] 140 mmol/L 134 - 146 mmol/L [facility] Urea nitrogen [Mass/Vol] 26 mg/dL High 5 - 23 mg/dL [facility] CBC WITH AUTO DIFFERENTIALon 09-28-2024 BASOPHILS ABSOLUTE COUNT (10*3/UL) BY AUTOMATED COUNT 0.0 10*3/uL Normal 0.0-0.2 [facility] Comment on above: Result Comment: This is an appended report. These results have been appended to a previously preliminary verified report. Performed By: #### P INR #### [facility] ([facility]) [address] [place] [address] VIR BASOPHILS RELATIVE PERCENT BY AUTOMATED COUNT 0.1 % Normal [facility] Comment on above: Result Comment: This is an appended report. These results have been appended to a previously preliminary verified report. Performed By: #### P INR #### [facility] ([facility]) [address] [place] [address] VIR CELLAVISION DIFFERENTIAL TYPE AUTOMATED DIFFERENTIAL Normal [facility] Comment on above: Result Comment: This is an appended report. These results have been appended to a previously preliminary verified report. Performed By: #### P INR #### [facility] ([facility]) [address] [place] [address] VIR Eosinophils (Bld) [#/Vol] 0.0 10*3/uL Normal 0.0-0.4 [facility] Comment on above: Result Comment: This is an appended report. These results have been appended to a previously preliminary verified report. Performed By: #### P INR #### [facility] ([facility]) [address] [place] [address] VIR EOSINOPHILS RELATIVE PERCENT BY AUTOMATED COUNT 0.1 % Normal [facility] Comment on above: Result Comment: This is an appended report. These results have been appended to a previously preliminary verified report. Performed By: #### P INR #### [facility] ([facility]) [address] [place] [address] VIR Erythrocyte distribution width (RBC) [Ratio] 16.4 % High 11.5-15 [facility] Comment on above: Performed By: #### P INR #### [facility] ([facility]) [address] [place] [address] VIR Hematocrit (Bld) [Volume fraction] 35.5 % Normal 35-47 [facility] Comment on above: Performed By: #### P INR #### [facility] ([facility]) [address] [place] [address] VIR Hemoglobin (Bld) [Mass/Vol] 11.5 g/dL Low 11.7-15.5 [facility] Comment on above: Performed By: #### P INR #### [facility] ([facility]) [address] [place] [address] VIR LYMPHOCYTES ABSOLUTE COUNT (10*3/UL) BY AUTOMATED COUNT 1.3 10*3/uL Normal 1.0-3.5 [facility] Comment on above: Result Comment: This is an appended report. These results have been appended to a previously preliminary verified report. Performed By: #### P INR #### [facility] ([facility]) [address] [place] [address] VIR LYMPHOCYTES RELATIVE PERCENT BY AUTOMATED COUNT 8.3 % Normal [facility] Comment on above: Result Comment: This is an appended report. These results have been appended to a previously preliminary verified report. Performed By: #### P INR #### [facility] ([facility]) [address] [place] [address] VIR MCH (RBC) [Entitic mass] 27.0 pg Normal 27-34 [facility] Comment on above: Performed By: #### P INR #### [facility] ([facility]) [address] [place] [address] VIR MCHC (RBC) [Mass/Vol] 32.5 g/dL Normal 32-36 [facility] Comment on above: Performed By: #### P INR #### [facility] ([facility]) [address] [place] [address] VIR MCV (RBC) [Entitic vol] 83 fL Normal 80-100 [facility] Comment on above: Performed By: #### P INR #### [facility] ([facility]) [address] [place] [address] VIR MONOCYTES ABSOLUTE COUNT (10*3/UL) BY AUTOMATED COUNT 1.8 10*3/uL High 0.0-0.9 [facility] Comment on above: Result Comment: This is an appended report. These results have been appended to a previously preliminary verified report. Performed By: #### P INR #### [facility] ([facility]) [address] [place] [address] VIR MONOCYTES RELATIVE PERCENT BY AUTOMATED COUNT 11.3 % Normal [facility] Comment on above: Result Comment: This is an appended report. These results have been appended to a previously preliminary verified report. Performed By: #### P INR #### [facility] ([facility]) [address] [place] [address] VIR NEUTROPHILS ABSOLUTE COUNT BY AUTOMATED COUNT 12.4 10*3/uL High 1.5-6.6 [facility] Comment on above: Result Comment: This is an appended report. These results have been appended to a previously preliminary verified report. Performed By: #### P INR #### [facility] ([facility]) [address] [place] [address] VIR NEUTROPHILS RELATIVE PERCENT BY AUTOMATED COUNT 80.2 % Normal [facility] Comment on above: Result Comment: This is an appended report. These results have been appended to a previously preliminary verified report. Performed By: #### P INR #### [facility] ([facility]) [address] [place] [address] VIR Platelet mean volume (Bld) [Entitic vol] 10.7 fL Normal 7-12 [facility] Comment on above: Performed By: #### P INR #### [facility] ([facility]) [address] [place] [address] VIR Platelets (Bld) [#/Vol] 115 10*3/uL Low 150-450 [facility] Comment on above: Performed By: #### P INR #### [facility] ([facility]) [address] [place] [address] VIR RBC COUNT 4.27 X10E12/L Normal 3.8-5.2 [facility] Comment on above: Performed By: #### P INR #### [facility] ([facility]) [address] [place] [address] VIR WBC (Bld) [#/Vol] 15.5 10*3/uL High 4-11 [facility] Comment on above: Performed By: #### P INR #### [facility] ([facility]) [address] [place] [address] VIR CBC auto differentialon 09-17 Basophils (Bld) [#/Vol] 0 10*3/uL 0.0 - 0.2 10*3/uL [facility] Basophils/100 WBC (Bld) 0.1 % P [facility] Differential cell count method Nom (Bld) AUTOMATED DIFFERENTIAL [facility] Eosinophils (Bld) [#/Vol] 0 10*3/uL 0.0 - 0.4 10*3/uL [facility] Eosinophils/100 WBC (Bld) 0.1 % [facility] Erythrocyte distribution width (RBC) [Ratio] 16.4 % High 11.5 - 15 % [facility] Hematocrit (Bld) [Volume fraction] 35.5 % 35 - 47 % [facility] Hemoglobin (Bld) [Mass/Vol] 11.5 g/dL Low 11.7 - 15.5 g/dL [facility] Interpretation and review of laboratory results Abnormal [facility] Lymphocytes (Bld) [#/Vol] 1.3 10*3/uL 1.0 - 3.5 10*3/uL [facility] Lymphocytes/100 WBC (Bld) 8.3 % [facility] MCH (RBC) [Entitic mass] 27 pg 27 - 34 pg [facility] MCHC (RBC) [Mass/Vol] 32.5 g/dL 32 - 3 6 g/dL [facility] MCV (RBC) [Entitic vol] 83 fL 80 - 100 fL [facility] Monocytes (Bld) [#/Vol] 1.8 10*3/uL High 0.0 - 0.9 10*3/uL [facility] Monocytes/100 WBC (Bld) 11.3 % P [facility] Neutrophils (Bld) [#/Vol] 12.4 10*3/uL High 1.5 - 6.6 10*3/uL [facility] Neutrophils/100 WBC (Bld) 80.2 % [facility] Platelet mean volume (Bld) [Entitic vol] 10.7 fL 7 - 12 fL [facility] Platelets (Bld) [#/Vol] 115 10*3/uL Low [facility] RBC (Bld) [#/Vol] 4.27 10*6/uL [facility] WBC LM Ql (Sput) 15.5 High [facility] [place] SWALLOW MOTILITY FUNCTION on 09-28-2024 [...] Arroyo MD on 09/28/2024 3:08 PM Normal [facility] IONIZED CALCIUMon 09-28-2024 IONIZED CALCIUM - ICAN 4.3 mg/dL Low 4.5-5.3 [facility] Comment on above: Performed By: #### P INR #### [facility] ([facility]) [address] [place] [address] VIR Ionized calciumon 09-28-2024 Calcium.ionized ISE [Moles/Vol] 4.3 mg/dL Low 4.5 - 5.3 mg/dL [facility] Interpretation and review of laboratory results Abnormal [facility] MAGNESIUMon 09-28-2024 Magnesium [Mass/Vol] 1.8 mg/dL Normal 1.8-2.6 [facility] Comment on above: Performed By: #### P INR #### [facility] ([facility]) [address] [place] [address] VIR Magnesiumon 09-28-2024 Magnesium [Mass/Vol] 1.8 mg/dL 1.8 - 2 .6 mg/dL [facility] No Panel Informationon 09-28 Interpretation and review of laboratory results Normal [facility] PHOSPHORUSon 09-28-2024 Phosphate [Mass/Vol] 2.6 mg/dL Normal 2.4-4.9 [facility] [facility] Comment on above: Performed By: #### P INR #### [facility] ([facility]) [address] [place] [address] VIR Phosphoruson 09-28-2024 Phosphate [Mass/Vol] 2.6 mg/dL 2.4 - 4 .9 mg/dL [facility] RF videography Hypopharynx a nd Esophagus Viewson 09-28-2024 SECTRAPACS [facility] Radiology Study observation (narrative) [facility] RF videography Hypopharynx a nd Esophagus ViewsOrdered By: Jayla Arroyo on 09-28-2024 [facility] Work Phone: BASIC METABOLIC PANELon 09-17 Anion gap [Moles/Vol] 10 mmol/L Normal 5-15 [facility] Comment on above: Performed By: #### P INR #### [facility] ([facility]) [address] [place] [address] VIR Calcium [Mass/Vol] 9.0 mg/dL Normal 8.5-10.5 [facility] Comment on above: Performed By: #### P INR #### [facility] ([facility]) [address] [place] [address] VIR Chloride [Moles/Vol] 109 mmol/L Normal 98-109 [facility] Comment on above: Performed By: #### P INR #### [facility] ([facility]) [address] [place] [address] VIR CO2 [Moles/Vol] 25 mmol/L Normal 22-32 [facility] Comment on above: Performed By: #### P INR #### [facility] ([facility]) [address] [place] [address] VIR Creatinine [Mass/Vol] 0.74 mg/dL Normal 0.40-1.00 [facility] Comment on above: Result Comment: METH OD TRACEABLE TO IDMS STANDARD Performed By: #### P INR #### [facility] ([facility]) [address] [place] [address] VIR EGFR (CKD-EPI) NON-RACE DEPENDENT >^90 Normal >=60 [facility] Comment on above: Result Comment: Repo rted eGFR is based on the CKD-EPI 2020 equation that does not use a race coefficient. Performed By: #### P INR #### [facility] ([facility]) [address] [place] [address] VIR Glucose [Mass/Vol] 101 mg/dL High 65-99 [facility] Comment on above: Performed By: #### P INR #### [facility] ([facility]) [address] [place] [address] VIR Potassium [Moles/Vol] 4.6 mmol/L Normal 3.5-5.0 [facility] Comment on above: Performed By: #### P INR #### [facility] ([facility]) [address] [place] [address] VIR Sodium [Moles/Vol] 144 mmol/L Normal 134-146 [facility] Comment on above: Performed By: #### P INR #### [facility] ([facility]) [address] [place] [address] VIR Urea nitrogen [Mass/Vol] 27 mg/dL High 5-23 [facility] Comment on above: Performed By: #### P INR #### [facility] ([facility]) [address] [place] [address] VIR Basic Metabolic Panelon 09-17 Anion gap [Moles/Vol] 10 mmol/L 5 - 15 mmol/L [facility] Calcium [Mass/Vol] 9 mg/dL 8.5 - 10. 5 mg/dL [facility] Chloride [Moles/Vol] 109 mmol/L 98 - 10 9 mmol/L [facility] CO2 [Moles/Vol] 25 mmol/L 22 - 32 mmol/L [facility] Creatinine [Mass/Vol] 0.74 mg/dL 0.40 - 1.00 mg/dL [facility] EGFR Non-Race Dependent - PINF [facility] Glucose [Mass/Vol] 101 mg/dL High 65 - 99 mg/dL [facility] Interpretation and review of laboratory results Abnormal [facility] Potassium [Moles/Vol] 4.6 mmol/L 3.5 - 5.0 mmol/L [facility] Sodium [Moles/Vol] 144 mmol/L 134 - 146 mmol/L [facility] Urea nitrogen [Mass/Vol] 27 mg/dL High 5 - 23 mg/dL [facility] CBC WITH AUTO DIFFERENTIALon 09-27-2024 CELLAVISION DIFFERENTIAL TYPE CELLAVISION DIFFERENTIAL Normal [facility] Comment on above: Result Comment: This is an appended report. These results have been appended to a previously preliminary verified report. Performed By: #### U LUDMILA #### [facility] ([facility]) [address] [facility] [address] VIR CELLAVISION LYMPHOCYTES ABSOLUTE COUNT (10*3/UL) BY MANUAL COUNT 0.8 10*3/uL Low 1.0-3.5 [facility] Comment on above: Result Comment: This is an appended report. These results have been appended to a previously preliminary verified report. Performed By: #### U LUDMILA #### [facility] ([facility]) [address] [place] [address] VIR CELLAVISION LYMPHOCYTES RELATIVE PERCENT BY MANUAL COUNT 5 % Normal [facility] Comment on above: Result Comment: This is an appended report. These results have been appended to a previously preliminary verified report. Performed By: #### U LUDMILA #### [facility] ([facility]) [address] [place] [address] VIR CELLAVISION MONOCYTES ABSOLUTE COUNT (10*3/UL) IN BLOOD BY MANUAL COUNT 2.2 10*3/uL High 0.0-0.9 [facility] Comment on above: Result Comment: This is an appended report. These results have been appended to a previously preliminary verified report. Performed By: #### U LUDMILA #### [facility] ([facility]) [address] [place] [address] VIR CELLAVISION MONOCYTES RELATIVE PERCENT BY MANUAL COUNT 13 % Normal [facility] Comment on above: Result Comment: This is an appended report. These results have been appended to a previously preliminary verified report. Performed By: #### U LUDMILA #### [facility] ([facility]) [address] [place] [address] VIR CELLAVISION MYELOCYTE RELATIVE PERCENT BY MANUAL COUNT 1 % Normal [facility] Comment on above: Result Comment: This is an appended report. These results have been appended to a previously preliminary verified report. Performed By: #### U LUDMILA #### [facility] ([facility]) [address] [place] [address] VIR CELLAVISION NEUTROPHILS ABSOLUTE COUNT BY MANUAL COUNT 14.0 10*3/uL High 1.5-6.6 [facility] Comment on above: Result Comment: This is an appended report. These results have been appended to a previously preliminary verified report. Performed By: #### U LUDMILA #### [facility] ([facility]) [address] [place] [address] VIR CELLAVISION NEUTROPHILS RELATIVE PERCENT BY MANUAL COUNT 82 % Normal [facility] Comment on above: Result Comment: This is an appended report. These results have been appended to a previously preliminary verified report. Performed By: #### U LUDMILA #### [facility] ([facility]) [address] [place] [address] VIR Erythrocyte distribution width (RBC) [Ratio] 16.6 % High 11.5-15 [facility] Comment on above: Performed By: #### U LUDMILA #### [facility] ([facility]) [address] [place] [address] VIR Hematocrit (Bld) [Volume fraction] 34.3 % Low 35-47 [facility] Comment on above: Performed By: #### U LUDMILA #### [facility] ([facility]) [address] [place] [address] VIR Hemoglobin (Bld) [Mass/Vol] 11.3 g/dL Low 11.7-15.5 [facility] Comment on above: Performed By: #### U LUDMILA #### [facility] ([facility]) [address] [place] [address] VIR MCH (RBC) [Entitic mass] 27.3 pg Normal 27-34 [facility] Comment on above: Performed By: #### U LUDMILA #### [facility] ([facility]) [address] [place] [address] VIR MCHC (RBC) [Mass/Vol] 33.0 g/dL Normal 32-36 [facility] Comment on above: Performed By: #### U LUDMILA #### [facility] ([facility]) [address] [place] [address] VIR MCV (RBC) [Entitic vol] 83 fL Normal 80-100 P [facility] Comment on above: Performed By: #### U LUDMILA #### [facility] ([facility]) [address] [place] [address] VIR Platelet mean volume (Bld) [Entitic vol] 11.6 fL Normal 7-12 [facility] Comment on above: Performed By: #### U LUDMILA #### [facility] ([facility]) [address] [place] [address] VIR Platelets (Bld) [#/Vol] 116 10*3/uL Low 150-450 [facility] Comment on above: Performed By: #### U LUDMILA #### [facility] ([facility]) [address] [place] [address] VIR RBC COUNT 4.14 X10E12/L Normal 3.8-5.2 [facility] Comment on above: Performed By: #### U LUDMILA #### [facility] ([facility]) [address] [place] [address] VIR WBC (Bld) [#/Vol] 17.1 10*3/uL High 4-11 [facility] Comment on above: Performed By: #### U LUDMILA #### [facility] ([facility]) [address] [place] [address] VIR CBC auto differentialon 05 Differential cell count method Nom (Bld) CELLAVISION DIFFERENTIAL [facility] Erythrocyte distribution width (RBC) [Ratio] 16.6 % High 11.5 - 15 % [facility] Hematocrit (Bld) [Volume fraction] 34.3 % Low 35 - 47 % [facility] Hemoglobin (Bld) [Mass/Vol] 11.3 g/dL Low 11.7 - 15.5 g/dL [facility] Interpretation and review of laboratory results Abnormal [facility] Lymphocytes (Bld) [#/Vol] 0.8 10*3/uL Low 1.0 - 3.5 10*3/uL [facility] MCH (RBC) [Entitic mass] 27.3 pg 27 - 34 pg [facility] MCHC (RBC) [Mass/Vol] 33 g/dL 32 - 3 6 g/dL [facility] MCV (RBC) [Entitic vol] 83 fL 80 - 100 fL [facility] Monocytes (Bld) [#/Vol] 2.2 10*3/uL High 0.0 - 0.9 10*3/uL [facility] Monocytes/100 WBC (Bld) 13 % P [facility] Myelocytes/100 WBC (Bld) 1 % [facility] Neutrophils (Bld) [#/Vol] 14 10*3/uL High 1.5 - 6.6 10*3/uL [facility] Neutrophils/100 WBC (Bld) 82 % [facility] Platelet mean volume (Bld) [Entitic vol] 11.6 fL 7 - 12 fL [facility] Platelets (Bld) [#/Vol] 116 10*3/uL Low [facility] RBC (Bld) [#/Vol] 4.14 10*6/uL [facility] Variant lymphocytes/100 WBC (Bld) 5 % [facility] WBC LM Ql (Sput) 17.1 High [facility] IONIZED CALCIUMon 09-27-2024 IONIZED CALCIUM - ICAN 4.8 mg/dL Normal 4.5-5.3 [facility] Comment on above: Performed By: #### U LUDMILA #### [facility] ([facility]) [address] [place] [address] VIR Ionized calciumon 09-27-2024 Calcium.ionized ISE [Moles/Vol] 4.8 mg/dL 4.5 - 5.3 mg/dL [facility] Interpretation and review of laboratory results Normal [facility] MAGNESIUMon 09-27-2024 Magnesium [Mass/Vol] 1.9 mg/dL Normal 1.8-2.6 [facility] Comment on above: Performed By: #### U LUDMILA #### [facility] ([facility]) [address] [place] [address] VIR Magnesiumon 09-27-2024 Magnesium [Mass/Vol] 1.9 mg/dL 1.8 - 2 .6 mg/dL [facility] No Panel Informationon 09-27 Interpretation and review of laboratory results Normal [facility] PHOSPHORUSon 09-27-2024 Phosphate [Mass/Vol] 2.8 mg/dL Normal 2.4-4.9 [facility] Comment on above: Performed By: #### U LUDMILA #### [facility] ([facility]) [address] [place] [address] VIR Phosphoruson 09-27-2024 Phosphate [Mass/Vol] 2.8 mg/dL 2.4 - 4 .9 mg/dL [facility] XR CHEST 1 VWon 09-27-2024 XR CHEST 1 VW XR CHEST 1 VW Single view chest History:evaluate for PNA Difficulty breathing, shortness of breath Comparison: 09/23/2024 Findings: Single portable view of the chest. Stable cardiomediastinal silhouette. No focal opacity, effusion or pneumothorax. Impression: No significant interval change or definitive acute process. Finalized by Eliazar Sterling MD on 09/27/2024 6:34 AM Normal [facility] XR Chest Single viewon 09-27 SECTRAPACS [facility] Radiology Study observation (narrative) [facility] XR Chest Single viewOrdered By: Eliazar Sterling on 09-27-2024 [facility] Work Phone: Bacteria identified Aer cx N om (Bld)Ordered By: Sheng Calderon on 09-26-2024 Bacteria identified Aer cx Nom (Unsp spec) NO GROWTH 5 DAYS [facility] BASIC METABOLIC PANELon Anion gap [Moles/Vol] 10 mmol/L Normal 5-15 [facility] Comment on above: Performed By: #### U LUDMILA #### [facility] ([facility]) [address] [place] [address] VIR Calcium [Mass/Vol] 8.6 mg/dL Normal 8.5-10.5 [facility] Comment on above: Performed By: #### U LUDMILA #### [facility] ([facility]) [address] [place] [address] VIR Chloride [Moles/Vol] 107 mmol/L Normal 98-109 [facility] Comment on above: Performed By: #### U LUDMILA #### [facility] ([facility]) [address] [place] [address] VIR CO2 [Moles/Vol] 24 mmol/L Normal 22-32 [facility] Comment on above: Performed By: #### U LUDMILA #### [facility] ([facility]) [address] [place] [address] VIR Creatinine [Mass/Vol] 0.80 mg/dL Normal 0.40-1.00 [facility] Comment on above: Result Comment: METH OD TRACEABLE TO IDMS STANDARD Performed By: #### U LUDMILA #### [facility] ([facility]) [address] [place] [address] VIR GFR/1.73 sq M.predicted among non-blacks MDRD (S/P/Bld) [Vol rate/Area] 86 mL/min/{1.73_m2} Normal >=60 [facility] Comment on above: Result Comment: Repo rted eGFR is based on the CKD-EPI 2020 equation that does not use a race coefficient. Performed By: #### U LUDMILA #### [facility] ([facility]) [address] [place] [address] VIR Glucose [Mass/Vol] 165 mg/dL High 65-99 [facility] Comment on above: Performed By: #### U LUDMILA #### [facility] ([facility]) [address] [place] [address] VIR Potassium [Moles/Vol] 4.0 mmol/L Normal 3.5-5.0 [facility] Comment on above: Performed By: #### U LUDMILA #### [facility] ([facility]) [address] [place] [address] VIR Sodium [Moles/Vol] 141 mmol/L Normal 134-146 [facility] Comment on above: Performed By: #### U LUDMILA #### [facility] ([facility]) [address] [place] [address] VIR Urea nitrogen [Mass/Vol] 24 mg/dL High 5-23 [facility] Comment on above: Performed By: #### U LUDMILA #### [facility] ([facility]) [address] [place] [address] VIR Basic Metabolic Panelon Anion gap [Moles/Vol] 10 mmol/L 5 - 15 mmol/L [facility] Calcium [Mass/Vol] 8.6 mg/dL 8.5 - 10. 5 mg/dL [facility] Chloride [Moles/Vol] 107 mmol/L 98 - 10 9 mmol/L [facility] CO2 [Moles/Vol] 24 mmol/L 22 - 32 mmol/L [facility] Creatinine [Mass/Vol] 0.8 mg/dL 0.40 - 1.00 mg/dL [facility] EGFR Non-Race Dependent 86 - PINF P [facility] Glucose [Mass/Vol] 165 mg/dL High 65 - 99 mg/dL [facility] Interpretation and review of laboratory results Abnormal [facility] Potassium [Moles/Vol] 4 mmol/L 3.5 - 5.0 mmol/L [facility] Sodium [Moles/Vol] 141 mmol/L 134 - 146 mmol/L [facility] Urea nitrogen [Mass/Vol] 24 mg/dL High 5 - 23 mg/dL [facility] CBC WITH AUTO DIFFERENTIALon 09-25-2024 CELLAVISION DIFFERENTIAL TYPE CELLAVISION DIFFERENTIAL Normal [facility] Comment on above: Result Comment: This is an appended report. These results have been appended to a previously preliminary verified report. Performed By: #### C PK #### [facility] ([facility]) [address] [place] [address] VIR CELLAVISION LYMPHOCYTES ABSOLUTE COUNT (10*3/UL) BY MANUAL COUNT 0.7 10*3/uL Low 1.0-3.5 [facility] Comment on above: Result Comment: This is an appended report. These results have been appended to a previously preliminary verified report. Performed By: #### C PK #### [facility] ([facility]) [address] [place] [address] VIR CELLAVISION LYMPHOCYTES RELATIVE PERCENT BY MANUAL COUNT 3 % Normal [facility] Comment on above: Result Comment: This is an appended report. These results have been appended to a previously preliminary verified report. Performed By: #### C PK #### [facility] ([facility]) [address] [place] [address] VIR CELLAVISION MONOCYTES ABSOLUTE COUNT (10*3/UL) IN BLOOD BY MANUAL COUNT 2.5 10*3/uL High 0.0-0.9 [facility] Comment on above: Result Comment: This is an appended report. These results have been appended to a previously preliminary verified report. Performed By: #### C PK #### [facility] ([facility]) [address] [place] [address] VIR CELLAVISION MONOCYTES RELATIVE PERCENT BY MANUAL COUNT 11 % Normal [facility] Comment on above: Result Comment: This is an appended report. These results have been appended to a previously preliminary verified report. Performed By: #### C PK #### [facility] ([facility]) [address] [place] [address] VIR CELLAVISION MYELOCYTE RELATIVE PERCENT BY MANUAL COUNT 1 % Normal [facility] Comment on above: Result Comment: This is an appended report. These results have been appended to a previously preliminary verified report. Performed By: #### C PK #### [facility] ([facility]) [address] [place] [address] VIR CELLAVISION NEUTROPHILS ABSOLUTE COUNT BY MANUAL COUNT 20.4 10*3/uL High 1.5-6.6 [facility] Comment on above: Result Comment: This is an appended report. These results have been appended to a previously preliminary verified report. Performed By: #### C PK #### [facility] ([facility]) [address] [place] [address] VIR CELLAVISION NEUTROPHILS RELATIVE PERCENT BY MANUAL COUNT 86 % Normal [facility] Comment on above: Result Comment: This is an appended report. These results have been appended to a previously preliminary verified report. Performed By: #### C PK #### [facility] ([facility]) [address] [place] [address] VIR CELLAVISION RBC MORPHOLOGY Normal Normal [facility] Comment on above: Result Comment: This is an appended report. These results have been appended to a previously preliminary verified report. Performed By: #### C PK #### [facility] ([facility]) [address] [place] [address] VIR CELLAVISION VACUOLATED NEUTROPHILS 1+ Normal [facility] Comment on above: Result Comment: This is an appended report. These results have been appended to a previously preliminary verified report. Performed By: #### C PK #### [facility] ([facility]) [address] [place] [address] VIR Erythrocyte distribution width (RBC) [Ratio] 15.8 % High 11.5-15 [facility] Comment on above: Performed By: #### C PK #### [facility] ([facility]) [address] [place] [address] VIR Hematocrit (Bld) [Volume fraction] 34.4 % Low 35-47 [facility] Comment on above: Performed By: #### C PK #### [facility] ([facility]) [address] [place] [address] VIR Hemoglobin (Bld) [Mass/Vol] 11.1 g/dL Low 11.7-15.5 [facility] Comment on above: Performed By: #### C PK #### [facility] ([facility]) [address] [place] [address] VIR MCH (RBC) [Entitic mass] 26.7 pg Low 27-34 [facility] Comment on above: Performed By: #### C PK #### [facility] ([facility]) [address] [place] [address] VIR MCHC (RBC) [Mass/Vol] 32.3 g/dL Normal 32-36 [facility] Comment on above: Performed By: #### C PK #### [facility] ([facility]) [address] [place] [address] VIR MCV (RBC) [Entitic vol] 83 fL Normal 80-100 [facility] Comment on above: Performed By: #### C PK #### [facility] ([facility]) [address] [place] [address] VIR Platelet mean volume (Bld) [Entitic vol] 10.5 fL Normal 7-12 [facility] Comment on above: Performed By: #### C PK #### [facility] ([facility]) [address] [place] [address] VIR Platelets (Bld) [#/Vol] 120 10*3/uL Low 150-450 [facility] Comment on above: Performed By: #### C PK #### [facility] ([facility]) [address] [place] [address] VIR RBC COUNT 4.16 X10E12/L Normal 3.8-5.2 [facility] Comment on above: Performed By: #### C PK #### [facility] [facility] ([facility]) [address] [place] [address] VIR WBC (Bld) [#/Vol] 23.8 10*3/uL High 4-11 [facility] Comment on above: Performed By: #### C PK #### [facility] ([facility]) [address] [place] [address] VIR CBC auto differentialon 050 Differential cell count method Nom (Bld) CELLAVISION DIFFERENTIAL [facility] Erythrocyte distribution width (RBC) [Ratio] 15.8 % High 11.5 - 15 % [facility] Hematocrit (Bld) [Volume fraction] 34.4 % Low 35 - 47 % [facility] Hemoglobin (Bld) [Mass/Vol] 11.1 g/dL Low 11.7 - 15.5 g/dL [facility] Interpretation and review of laboratory results Abnormal [facility] Lymphocytes (Bld) [#/Vol] 0.7 10*3/uL Low 1.0 - 3.5 10*3/uL [facility] MCH (RBC) [Entitic mass] 26.7 pg Low 27 - 34 pg [facility] MCHC (RBC) [Mass/Vol] 32.3 g/dL 32 - 3 6 g/dL [facility] MCV (RBC) [Entitic vol] 83 fL 80 - 100 fL [facility] Monocytes (Bld) [#/Vol] 2.5 10*3/uL High 0.0 - 0.9 10*3/uL [facility] Monocytes/100 WBC (Bld) 11 % [facility] Myelocytes/100 WBC (Bld) 1 % [facility] Neutrophils (Bld) [#/Vol] 20.4 10*3/uL High 1.5 - 6.6 10*3/uL [facility] Neutrophils.vacuolated LM Ql (Bld) 1+ [facility] Neutrophils/100 WBC (Bld) 86 % [facility] Platelet mean volume (Bld) [Entitic vol] 10.5 fL 7 - 12 fL [facility] Platelets (Bld) [#/Vol] 120 10*3/uL Low [facility] RBC (Bld) [#/Vol] 4.16 10*6/uL [facility] RBC (Bld) [#/Vol] Normal [facility] Variant lymphocytes/100 WBC (Bld) 3 % [facility] WBC LM Ql (Sput) 23.8 High [facility] IONIZED CALCIUMon 09-25-2024 IONIZED CALCIUM - ICAN 4.8 mg/dL Normal 4.5-5.3 [facility] Comment on above: Performed By: #### C PK #### [facility] ([facility]) [address] [place] [address] VIR IONIZED MAGNESIUMon 09-26-19 Magnesium [Moles/Vol] 0.56 mmol/L Normal 0.45-0.74 [facility] Comment on above: Performed By: #### U LUDMILA #### [facility] ([facility]) [address] [place] [address] VIR Ionized calciumon 09-25-2024 Calcium.ionized ISE [Moles/Vol] 4.8 mg/dL 4.5 - 5.3 mg/dL [facility] Interpretation and review of laboratory results Normal [facility] Ionized magnesiumon 09-26-19 25 Interpretation and review of laboratory results Normal [facility] Magnesium Ionized ISE (Bld) [Moles/Vol] 0.56 mmol/L 0.45 - 0.74 mmol/L [facility] MAGNESIUMon 09-25-2024 Magnesium [Mass/Vol] 1.8 mg/dL Normal 1.8-2.6 [facility] Comment on above: Performed By: #### U LUDMILA #### [facility] ([facility]) [address] [place] [address] VIR Magnesiumon 09-25-2024 Interpretation and review of laboratory results Normal [facility] Magnesium [Mass/Vol] 1.8 mg/dL 1.8 - 2 .6 mg/dL [facility] No Panel Informationon 09-25 [facility] PHOSPHORUSon 09-25-2024 Phosphate [Mass/Vol] 2.3 mg/dL Low 2.4-4.9 [facility] Comment on above: Performed By: #### U LUDMILA #### [facility] ([facility]) [address] [place] [address] VIR Phosphoruson 09-25-2024 Interpretation and review of laboratory results Abnormal [facility] Phosphate [Mass/Vol] 2.3 mg/dL Low 2.4 - 4 .9 mg/dL [facility] Bacteria identified Aer cx N om (Bld)on 09-24-2024 Bacteria identified Aer cx Nom (Unsp spec) NO GROWTH 5 DAYS [facility] CBC WITH AUTO DIFFERENTIALon 09-24-2024 BASOPHILS ABSOLUTE COUNT (10*3/UL) BY AUTOMATED COUNT 0.0 10*3/uL Normal [facility] Comment on above: Result Comment: This is an appended report. These results have been appended to a previously preliminary verified report. Performed By: #### C PK #### [facility] ([facility]) [address] [place] [address] VIR BASOPHILS RELATIVE PERCENT BY AUTOMATED COUNT 0.1 % Normal [facility] Comment on above: Result Comment: This is an appended report. These results have been appended to a previously preliminary verified report. Performed By: #### C PK #### [facility] ([facility]) [address] [place] [address] VIR CELLAVISION DIFFERENTIAL TYPE AUTOMATED DIFFERENTIAL Normal [facility] Comment on above: Result Comment: This is an appended report. These results have been appended to a previously preliminary verified report. Performed By: #### C PK #### [facility] ([facility]) [address] [place] [address] VIR Eosinophils (Bld) [#/Vol] 0.0 10*3/uL Normal [facility] Comment on above: Result Comment: This is an appended report. These results have been appended to a previously preliminary verified report. Performed By: #### C PK #### [facility] ([facility]) [address] [place] [address] VIR EOSINOPHILS RELATIVE PERCENT BY AUTOMATED COUNT 0.0 % Normal [facility] Comment on above: Result Comment: This is an appended report. These results have been appended to a previously preliminary verified report. Performed By: #### C PK #### [facility] ([facility]) [address] [place] [address] VIR Erythrocyte distribution width (RBC) [Ratio] 15.3 % High 11.5-15 [facility] Comment on above: Performed By: #### C PK #### [facility] ([facility]) [address] [place] [address] VIR Hematocrit (Bld) [Volume fraction] 34.8 % Low 35-47 [facility] Comment on above: Performed By: #### C PK #### [facility] ([facility]) [address] [place] [address] VIR Hemoglobin (Bld) [Mass/Vol] 11.2 g/dL Low 11.7-15.5 [facility] Comment on above: Performed By: #### C PK #### [facility] ([facility]) [address] [place] [address] VIR LYMPHOCYTES ABSOLUTE COUNT (10*3/UL) BY AUTOMATED COUNT 0.7 10*3/uL Normal [facility] Comment on above: Result Comment: This is an appended report. These results have been appended to a previously preliminary verified report. Performed By: #### C PK #### [facility] ([facility]) [address] [place] [address] VIR LYMPHOCYTES RELATIVE PERCENT BY AUTOMATED COUNT 2.8 % Normal [facility] Comment on above: Result Comment: This is an appended report. These results have been appended to a previously preliminary verified report. Performed By: #### C PK #### [facility] ([facility]) [address] [place] [address] VIR MCH (RBC) [Entitic mass] 26.5 pg Low 27-34 [facility] Comment on above: Performed By: #### C PK #### [facility] ([facility]) [address] [place] [address] VIR MCHC (RBC) [Mass/Vol] 32.1 g/dL Normal 32-36 [facility] Comment on above: Performed By: #### C PK #### [facility] ([facility]) [address] [place] [address] VIR MCV (RBC) [Entitic vol] 82 fL Normal 80-100 [facility] Comment on above: Performed By: #### C PK #### [facility] ([facility]) [address] [place] [address] VIR MONOCYTES ABSOLUTE COUNT (10*3/UL) BY AUTOMATED COUNT 2.8 10*3/uL Normal [facility] Comment on above: Result Comment: This is an appended report. These results have been appended to a previously preliminary verified report. Performed By: #### C PK #### [facility] ([facility]) [address] [place] [address] VIR MONOCYTES RELATIVE PERCENT BY AUTOMATED COUNT 10.4 % Normal [facility] Comment on above: Result Comment: This is an appended report. These results have been appended to a previously preliminary verified report. Performed By: #### C PK #### [facility] ([facility]) [address] [place] [address] VIR NEUTROPHILS ABSOLUTE COUNT BY AUTOMATED COUNT 22.9 10*3/uL Normal [facility] Comment on above: Result Comment: This is an appended report. These results have been appended to a previously preliminary verified report. Performed By: #### C PK #### [facility] ([facility]) [address] [place] [address] VIR NEUTROPHILS RELATIVE PERCENT BY AUTOMATED COUNT 86.7 % Normal [facility] Comment on above: Result Comment: This is an appended report. These results have been appended to a previously preliminary verified report. Performed By: #### C PK #### [facility] ([facility]) [address] [place] [address] VIR Platelet mean volume (Bld) [Entitic vol] 9.5 fL Normal 7-12 [facility] Comment on above: Performed By: #### C PK #### [facility] ([facility]) [address] [place] [address] VIR Platelets (Bld) [#/Vol] 155 10*3/uL Normal 150-450 [facility] Comment on above: Performed By: #### C PK #### [facility] ([facility]) [address] [place] [address] VIR RBC COUNT 4.22 [id number] Normal 3.8-5.2 [facility] Comment on above: Performed By: #### C PK #### [facility] ([facility]) [address] [place] [address] VIR WBC (Bld) [#/Vol] 26.5 10*3/uL High 4-11 [facility] Comment on above: Performed By: #### C PK #### [facility] ([facility]) [address] [place] [address] VIR CBC auto differentialon 05-0 Basophils (Bld) [#/Vol] 0 10*3/uL P [facility] Basophils/100 WBC (Bld) 0.1 % P [facility] Differential cell count method Nom (Bld) AUTOMATED DIFFERENTIAL [facility] Eosinophils (Bld) [#/Vol] 0 10*3/uL [facility] Eosinophils/100 WBC (Bld) 0 % [facility] Erythrocyte distribution width (RBC) [Ratio] 15.3 % High 11.5 - 15 % [facility] Hematocrit (Bld) [Volume fraction] 34.8 % Low 35 - 47 % [facility] Hemoglobin (Bld) [Mass/Vol] 11.2 g/dL Low 11.7 - 15.5 g/dL [facility] Interpretation and review of laboratory results Abnormal [facility] Lymphocytes (Bld) [#/Vol] 0.7 10*3/uL [facility] Lymphocytes/100 WBC (Bld) 2.8 % [facility] MCH (RBC) [Entitic mass] 26.5 pg Low 27 - 34 pg [facility] MCHC (RBC) [Mass/Vol] 32.1 g/dL 32 - 3 6 g/dL [facility] MCV (RBC) [Entitic vol] 82 fL 80 - 100 fL [facility] Monocytes (Bld) [#/Vol] 2.8 10*3/uL [facility] Monocytes/100 WBC (Bld) 10.4 % P [facility] Neutrophils (Bld) [#/Vol] 22.9 10*3/uL [facility] Neutrophils/100 WBC (Bld) 86.7 % [facility] Platelet mean volume (Bld) [Entitic vol] 9.5 fL 7 - 12 fL [facility] Platelets (Bld) [#/Vol] 155 10*3/uL [facility] RBC (Bld) [#/Vol] 4.22 10*6/uL [facility] WBC LM Ql (Sput) 26.5 High [facility] COMPREHENSIVE METABOLIC PANE Antoni 09-24-2024 Albumin [Mass/Vol] 3.3 g/dL Normal 3.2-5.3 [facility] Comment on above: Performed By: #### C PK #### [facility] ([facility]) [address] [place] [address] VIR ALP [Catalytic activity/Vol] 61 U/L Normal 39-130 [facility] Comment on above: Performed By: #### C PK #### [facility] ([facility]) [address] [place] [address] VIR ALT [Catalytic activity/Vol] 33 U/L High <=31 [facility] Comment on above: Performed By: #### C PK #### [facility] ([facility]) [address] [place] [address] VIR Anion gap [Moles/Vol] 10 mmol/L Normal 5-15 [facility] [place] [facility] Comment on above: Performed By: #### C PK #### [facility] ([facility]) [address] [place] [address] VIR AST [Catalytic activity/Vol] 19 U/L Normal <=41 [facility] Comment on above: Performed By: #### C PK #### [facility] ([facility]) [address] [place] [address] VIR Bilirubin [Mass/Vol] 0.4 mg/dL Normal 0.3-1.2 [facility] Comment on above: Performed By: #### C PK #### [facility] ([facility]) [address] [place] [address] VIR Calcium [Mass/Vol] 8.7 mg/dL Normal 8.5-10.5 [facility] Comment on above: Performed By: #### C PK #### [facility] ([facility]) [address] [place] [address] VIR Chloride [Moles/Vol] 108 mmol/L Normal 98-109 [facility] Comment on above: Performed By: #### C PK #### [facility] ([facility]) [address] [place] [address] VIR CO2 [Moles/Vol] 23 mmol/L Normal 22-32 [facility] Comment on above: Performed By: #### C PK #### [facility] ([facility]) [address] [place] [address] VIR Creatinine [Mass/Vol] 1.06 mg/dL High 0.40-1.00 [facility] Comment on above: Result Comment: METH OD TRACEABLE TO IDMS STANDARD Performed By: #### C PK #### [facility] ([facility]) [address] [place] [address] VIR GFR/1.73 sq M.predicted among non-blacks MDRD (S/P/Bld) [Vol rate/Area] 62 mL/min/{1.73_m2} Normal >=60 [facility] Comment on above: Result Comment: Repo rted eGFR is based on the CKD-EPI 2020 equation that does not use a race coefficient. Performed By: #### C PK #### [facility] ([facility]) [address] [place] [address] VIR Glucose [Mass/Vol] 120 mg/dL High 65-99 [facility] Comment on above: Performed By: #### C PK #### [facility] ([facility]) [address] [place] [address] VIR Potassium [Moles/Vol] 4.3 mmol/L Normal 3.5-5.0 [facility] Comment on above: Performed By: #### C PK #### [facility] ([facility]) [address] [place] [address] VIR Protein [Mass/Vol] 6.3 g/dL Normal 6.0-8.0 [facility] Comment on above: Performed By: #### C PK #### [facility] ([facility]) [address] [place] [address] VIR Sodium [Moles/Vol] 141 mmol/L Normal 134-146 [facility] Comment on above: Performed By: #### C PK #### [facility] ([facility]) [address] [place] [address] VIR Urea nitrogen [Mass/Vol] 27 mg/dL High 5-23 [facility] Comment on above: Performed By: #### C PK #### [facility] ([facility]) [address] [place] [address] VIR CREATININE, SERUMon 09-25-19 25 CREATININE, SERUM RANCH HELPER CREATININE, SERU M Cancelled Normal [facility] Comment on above: Order Comment: Spoke to Regina Taylor RN. BMP since resulted making duplicate order, add-on is not necessary. Comprehensive metabolic pane lOrdered By: Paxton Navarro on 09-24-2024 Albumin [Mass/Vol] 3.3 g/dL 3.2 - 5.3 g/dL [facility] ALP [Catalytic activity/Vol] 61 U/L 39 - 130 U/L [facility] ALT No additional P-5'-P [Catalytic activity/Vol] 33 U/L High NINF - 31 U/L [facility] Anion gap [Moles/Vol] 10 mmol/L 5 - 15 mmol/L [facility] AST [Catalytic activity/Vol] 19 U/L NINF - 41 U/L [facility] Bilirubin [Mass/Vol] 0.4 mg/dL 0.3 - 1 .2 mg/dL [facility] Calcium [Mass/Vol] 8.7 mg/dL 8.5 - 10. 5 mg/dL [facility] Chloride [Moles/Vol] 108 mmol/L 98 - 10 9 mmol/L [facility] CO2 [Moles/Vol] 23 mmol/L 22 - 32 mmol/L [facility] Creatinine [Mass/Vol] 1.06 mg/dL High 0.40 - 1.00 mg/dL [facility] EGFR Non-Race Dependent 62 - PINF P [facility] Glucose [Mass/Vol] 120 mg/dL High 65 - 99 mg/dL [facility] Interpretation and review of laboratory results Abnormal [facility] Potassium [Moles/Vol] 4.3 mmol/L 3.5 - 5.0 mmol/L [facility] Protein [Mass/Vol] 6.3 g/dL 6.0 - 8.0 g/dL [facility] Sodium [Moles/Vol] 141 mmol/L 134 - 146 mmol/L [facility] Urea nitrogen [Mass/Vol] 27 mg/dL High 5 - 23 mg/dL [facility] FL SWALLOW MOTILITY FUNCTION on [...] Christian MD on 09/24/2024 1:36 PM Normal [facility] IONIZED CALCIUMon 09-24-2024 IONIZED CALCIUM - ICAN 4.9 mg/dL Normal 4.5-5.3 [facility] Comment on above: Performed By: #### C PK #### [facility] ([facility]) [address] [place] [address] VIR Ionized calciumon 09-24-2024 Calcium.ionized ISE [Moles/Vol] 4.9 mg/dL 4.5 - 5.3 mg/dL [facility] Interpretation and review of laboratory results Normal [facility] MAGNESIUMon 09-24-2024 Magnesium [Mass/Vol] 2.3 mg/dL Normal 1.8-2.6 [facility] Comment on above: Performed By: #### C PK #### [facility] ([facility]) [address] [place] [address] VIR Magnesiumon 09-24-2024 Magnesium [Mass/Vol] 2.3 mg/dL 1.8 - 2 .6 mg/dL [facility] No Panel Informationon 09-24 Interpretation and review of laboratory results Normal [facility] PHOSPHORUSon 09-24-2024 Phosphate [Mass/Vol] 3.5 mg/dL Normal 2.4-4.9 [facility] Comment on above: Performed By: #### C PK #### [facility] ([facility]) [address] [place] [address] VIR Phosphoruson 09-24-2024 Phosphate [Mass/Vol] 3.5 mg/dL 2.4 - 4 .9 mg/dL [facility] RF videography Hypopharynx a nd Esophagus Viewson 09-24-2024 SECTRAPACS [facility] Radiology Study observation (narrative) [facility] RF videography Hypopharynx a nd Esophagus ViewsOrdered By: Remy Christian on 09-24-2024 [facility] Work Phone: ABO Rh Repeaton 09-23-2024 ABO O [facility] Rh Nom (Bld) Positive [facility] ABO O [facility] Rh Nom (Bld) Positive [facility] BASIC METABOLIC PANELon Anion gap [Moles/Vol] 8 mmol/L Normal 5-15 [facility] Comment on above: Performed By: #### T [email or web address] #### [facility] ([facility]) [address] [place] [address] VIR Calcium [Mass/Vol] 9.0 mg/dL Normal 8.5-10.5 [facility] Comment on above: Performed By: #### T [email or web address] #### [facility] ([facility]) [address] [place] [address] VIR Chloride [Moles/Vol] 111 mmol/L High 98-109 [facility] Comment on above: Performed By: #### T [email or web address] #### [facility] ([facility]) [address] [place] [address] VIR CO2 [Moles/Vol] 24 mmol/L Normal 22-32 [facility] Comment on above: Performed By: #### T [email or web address] #### [facility] ([facility]) [address] [place] [address] VIR Creatinine [Mass/Vol] 0.91 mg/dL Normal 0.40-1.00 [facility] Comment on above: Result Comment: METH OD TRACEABLE TO IDMS STANDARD Performed By: #### T [email or web address] #### [facility] ([facility]) [address] [facility] [place] [address] VIR GFR/1.73 sq M.predicted among non-blacks MDRD (S/P/Bld) [Vol rate/Area] 74 mL/min/{1.73_m2} Normal >=60 [facility] Comment on above: Result Comment: Repo rted eGFR is based on the CKD-EPI 2020 equation that does not use a race coefficient. Performed By: #### T [email or web address] #### [facility] ([facility]) [address] [facility] [place] [address] VIR Glucose [Mass/Vol] 106 mg/dL High 65-99 [facility] Comment on above: Performed By: #### T [email or web address] #### [facility] ([facility]) [address] [facility] [place] [address] VIR Potassium [Moles/Vol] 4.4 mmol/L Normal 3.5-5.0 [facility] Comment on above: Performed By: #### T [email or web address] #### [facility] ([facility]) [address] [place] [address] VIR Sodium [Moles/Vol] 143 mmol/L Normal 134-146 [facility] Comment on above: Performed By: #### T [email or web address] #### [facility] ([facility]) [address] [place] [address] VIR Urea nitrogen [Mass/Vol] 25 mg/dL High 5-23 [facility] Comment on above: Performed By: #### T [email or web address] #### [facility] ([facility]) [address] [place] [address] VIR BEDSIDE GLUCOSEon 09-23-2024 Glucose [Mass/Vol] 153 mg/dL High 65-99 [facility] Comment on above: Performed By: #### T [email or web address] #### [facility] ([facility]) [address] [facility] [place] [address] VIR Basic Metabolic PanelOrdered By: Prema Beach on 09-23-2024 Anion gap [Moles/Vol] 8 mmol/L 5 - 15 mmol/L [facility] Calcium [Mass/Vol] 9 mg/dL 8.5 - 10. 5 mg/dL [facility] Chloride [Moles/Vol] 111 mmol/L High 98 - 10 9 mmol/L [facility] CO2 [Moles/Vol] 24 mmol/L 22 - 32 mmol/L [facility] Creatinine [Mass/Vol] 0.91 mg/dL 0.40 - 1.00 mg/dL [facility] EGFR Non-Race Dependent 74 - PINF P [facility] Glucose [Mass/Vol] 106 mg/dL High 65 - 99 mg/dL [facility] Interpretation and review of laboratory results Abnormal [facility] Potassium [Moles/Vol] 4.4 mmol/L 3.5 - 5.0 mmol/L [facility] Sodium [Moles/Vol] 143 mmol/L 134 - 146 mmol/L [facility] Urea nitrogen [Mass/Vol] 25 mg/dL High 5 - 23 mg/dL [facility] Bedside Glucose *Place/Obtai n serum glucose if >500 per glucometer.on 09-23-2024 Glucose [Mass/Vol] 153 mg/dL High 65 - 99 mg/dL [facility] Interpretation and review of laboratory results Abnormal [facility] CBC WITH AUTO DIFFERENTIALon 09-23-2024 BASOPHILS ABSOLUTE COUNT (10*3/UL) BY AUTOMATED COUNT 0.1 10*3/uL Normal [facility] Comment on above: Performed By: #### T [email or web address] #### [facility] ([facility]) [address] [place] [address] VIR BASOPHILS RELATIVE PERCENT BY AUTOMATED COUNT 0.4 % Normal [facility] Comment on above: Performed By: #### T [email or web address] #### [facility] ([facility]) [address] [place] [address] VIR CELLAVISION DIFFERENTIAL TYPE AUTOMATED DIFFERENTIAL Normal [facility] Comment on above: Performed By: #### T [email or web address] #### [facility] ([facility]) [address] [place] [address] VIR Eosinophils (Bld) [#/Vol] 0.0 10*3/uL Normal [facility] Comment on above: Performed By: #### T [email or web address] #### [facility] ([facility]) [address] [facility] [place] [address] VIR EOSINOPHILS RELATIVE PERCENT BY AUTOMATED COUNT 0.1 % Normal [facility] Comment on above: Performed By: #### T [email or web address] #### [facility] ([facility]) [address] [place] [address] VIR Erythrocyte distribution width (RBC) [Ratio] 15.5 % High 11.5-15 [facility] Comment on above: Performed By: #### T [email or web address] #### [facility] ([facility]) [address] [place] [address] VIR Hematocrit (Bld) [Volume fraction] 37.3 % Normal 35-47 [facility] Comment on above: Performed By: #### T [email or web address] #### [facility] ([facility]) [address] [place] [address] VIR Hemoglobin (Bld) [Mass/Vol] 12.3 g/dL Normal 11.7-15.5 [facility] Comment on above: Performed By: #### T [email or web address] #### [facility] ([facility]) [address] [place] [address] VIR LYMPHOCYTES ABSOLUTE COUNT (10*3/UL) BY AUTOMATED COUNT 1.1 10*3/uL Normal [facility] Comment on above: Performed By: #### T [email or web address] #### [facility] ([facility]) [address] [place] [address] VIR LYMPHOCYTES RELATIVE PERCENT BY AUTOMATED COUNT 7.0 % Normal [facility] Comment on above: Performed By: #### T [email or web address] #### [facility] ([facility]) [address] [place] [address] VIR MCH (RBC) [Entitic mass] 26.9 pg Low 27-34 [facility] Comment on above: Performed By: #### T [email or web address] #### [facility] ([facility]) [address] [place] [address] VIR MCHC (RBC) [Mass/Vol] 32.9 g/dL Normal 32-36 [facility] Comment on above: Performed By: #### T [email or web address] #### [facility] ([facility]) [address] [place] [address] VIR MCV (RBC) [Entitic vol] 82 fL Normal 80-100 [facility] Comment on above: Performed By: #### T [email or web address] #### [facility] ([facility]) [address] [place] [address] VIR MONOCYTES ABSOLUTE COUNT (10*3/UL) BY AUTOMATED COUNT 1.0 10*3/uL Normal [facility] Comment on above: Performed By: #### T [email or web address] #### [facility] ([facility]) [address] [place] [address] VIR MONOCYTES RELATIVE PERCENT BY AUTOMATED COUNT 6.9 % Normal [facility] Comment on above: Performed By: #### T [email or web address] #### [facility] ([facility]) [address] [place] [address] VIR NEUTROPHILS ABSOLUTE COUNT BY AUTOMATED COUNT 12.9 10*3/uL Normal [facility] Comment on above: Performed By: #### T [email or web address] #### [facility] ([facility]) [address] [place] [address] VIR NEUTROPHILS RELATIVE PERCENT BY AUTOMATED COUNT 85.6 % Normal [facility] Comment on above: Performed By: #### T [email or web address] #### [facility] ([facility]) [address] [place] [address] VIR Platelet mean volume (Bld) [Entitic vol] 9.5 fL Normal 7-12 [facility] Comment on above: Performed By: #### T [email or web address] #### [facility] ([facility]) [address] [place] [address] VIR Platelets (Bld) [#/Vol] 167 10*3/uL Normal 150-450 [facility] Comment on above: Performed By: #### T [email or web address] #### [facility] ([facility]) [address] [place] [address] VIR RBC COUNT 4.57 X10E12/L Normal 3.8-5.2 [facility] Comment on above: Performed By: #### T [email or web address] #### [facility] ([facility]) [address] [place] [address] VIR WBC (Bld) [#/Vol] 15.1 10*3/uL High 4-11 [facility] Comment on above: Performed By: #### T [email or web address] #### [facility] ([facility]) [address] [place] [address] VIR CBC auto differentialon 05-0 Basophils (Bld) [#/Vol] 0.1 10*3/uL [facility] Basophils/100 WBC (Bld) 0.4 % [facility] Differential cell count method Nom (Bld) AUTOMATED DIFFERENTIAL [facility] Eosinophils (Bld) [#/Vol] 0 10*3/uL [facility] Eosinophils/100 WBC (Bld) 0.1 % [facility] Erythrocyte distribution width (RBC) [Ratio] 15.5 % High 11.5 - 15 % [facility] Hematocrit (Bld) [Volume fraction] 37.3 % 35 - 47 % [facility] Hemoglobin (Bld) [Mass/Vol] 12.3 g/dL 11.7 - 15.5 g/dL [facility] Interpretation and review of laboratory results Abnormal [facility] Lymphocytes (Bld) [#/Vol] 1.1 10*3/uL [facility] Lymphocytes/100 WBC (Bld) 7 % [facility] MCH (RBC) [Entitic mass] 26.9 pg Low 27 - 34 pg [facility] MCHC (RBC) [Mass/Vol] 32.9 g/dL 32 - 3 6 g/dL [facility] MCV (RBC) [Entitic vol] 82 fL 80 - 100 fL [facility] Monocytes (Bld) [#/Vol] 1 10*3/uL [facility] Monocytes/100 WBC (Bld) 6.9 % [facility] Neutrophils (Bld) [#/Vol] 12.9 10*3/uL [facility] Neutrophils/100 WBC (Bld) 85.6 % [facility] Platelet mean volume (Bld) [Entitic vol] 9.5 fL 7 - 12 fL [facility] Platelets (Bld) [#/Vol] 167 10*3/uL [facility] RBC (Bld) [#/Vol] 4.57 10*6/uL [facility] WBC LM Ql (Sput) 15.1 High [facility] BRAIN WO CONTon 5 CT [...] Hebert Farrar on 09/23/2024 7:38 PM Normal [facility] CT Head WO [facility] (narrative[facility] CT Head WO contrastOrdered B y: Hebert Farrar on 09-23-2024 [facility] Work Phone: Clinical Pathology ReviewOrd ered By: Jeremiah Altman on 09-23-2024 Case Report [employer] Work Phone: Pathology report final diagnosis Narrative [id number] FxygtZvYSVjjVBuO8Gdzu qcOJdeGI5rNH8jyOwgaIL dnFNcQHAtVtRvz8vqm217 fIQfj2jlSICANHhhUYUAW Nn7sUtdN28om7Y9RgrrR5 0zmVFwVFC0UVHlNEMuhOT aKWHmRXW3OMEamZTdE2rz DOKgSD6hmmaaQFbmFSwzE YSvrQS0RHXzmCTtH2GwBW AdDLjbOHKaxoe4TdDeRx4 vdGVyeTcyMFxwYXJkXHBs YWluXGZzMjAgUHJvbWluZ V66QXSvlpExzW5hCzP4MW LnKOukx95qYMGkK84zdEO cMVKnxD30ow8jvHylbAnv zuPue2AvXkBbzLyxrbKnr gSwcNF0cS7vYkjjYBYyNN cib0WqFmIggI4raZkcKKb huKhfbV3hqnMnt0ScdB0h WJA7xXHcpKunc1NpydFzR 8FqepTqKsxxQFK6 [employer] Work Phone: [employer] Work Phone: ECG 12 leadon 09-23-2024 TRACEMASTERVUE [facility] IONIZED CALCIUMon 09-23-2024 IONIZED CALCIUM - ICAN 4.8 mg/dL Normal 4.5-5.3 [facility] Comment on above: Performed By: #### T [email or web address] #### [facility] ([facility]) [address] [place] [address] VIR Ionized calciumon 09-23-2024 Calcium.ionized ISE [Moles/Vol] 4.8 mg/dL 4.5 - 5.3 mg/dL [facility] Interpretation and review of laboratory results Normal [facility] MAGNESIUMon 09-23-2024 Magnesium [Mass/Vol] 1.8 mg/dL Normal 1.8-2.6 [facility] Comment on above: Performed By: #### T [email or web address] #### [facility] ([facility]) [address] [place] [address] VIR Magnesiumon 09-23-2024 Magnesium [Mass/Vol] 1.8 mg/dL 1.8 - 2 .6 mg/dL [facility] No Panel Informationon 09-23 Interpretation and review of laboratory results Normal [facility] PHOSPHORUSon 09-23-2024 Phosphate [Mass/Vol] 3.0 mg/dL Normal 2.4-4.9 [facility] Comment on above: Result Comment: R-Sp ecimen slightly hemolyzed, results increased Performed By: #### T [email or web address] #### [facility] ([facility]) [address] [place] [address] VIR Phosphoruson 09-23-2024 Phosphate [Mass/Vol] 3 mg/dL 2.4 - 4 .9 mg/dL [facility] Protein electrophoresis, ser umon 09-23-2024 Albumin [Mass/Vol] 2.8 g/dL Low 3.4 - 5.3 g/dL [facility] Alpha 1 globulin Elph [Mass/Vol] 0.6 g/dL High 0.1 - 0.4 g/dL [facility] Alpha 2 globulin Elph [Mass/Vol] 1.2 g/dL High 0.4 - 1.1 g/dL [facility] Beta globulin Elph [Mass/Vol] 1 g/dL 0.5 - 1.2 g/dL [facility] Gamma globulin Elph (Body fld) [Mass/Vol] 0.9 g/dL 0.5 - 1.6 g/dL [facility] Interpretation and review of laboratory results Abnormal [facility] Pathologist interpretation (Bld) [Interp] See Pathology Report [facility] Protein [Mass/Vol] 6.4 g/dL 6.0 - 8.0 g/dL [facility] REPEATED ABORHon 09-23-2024 ABO_INTEP O Normal [facility] Comment on above: Performed By: #### T [email or web address] #### [facility] ([facility]) [address] [place] [address] VIR RH_INTEP Positive Normal [facility] Comment on above: Performed By: #### T [email or web address] #### [facility] ([facility]) [address] [place] [address] VIR X-ray abdomen NG Tube placem ent 1 viewon 09-23-2024 [facility] Radiology Study observation (narrative) [facility] X-ray abdomen NG Tube placem ent 1 viewOrdered By: Sebastian Grayson on 09-23-2024 [facility] Work Phone: XR ABD NG TUBE [...] Grayson MD on 09/23/2024 5:22 PM Normal [facility] XR Chest Single viewon 09-23 [facility] Radiology Study observation (narrative) [facility] XR Chest Single viewOrdered By: Shen Farooq on 09-23-2024 [facility] Work Phone: BASIC METABOLIC PANELon 05-0 Anion gap [Moles/Vol] 11 mmol/L Normal 5-15 [facility] Comment on above: Performed By: #### C MP #### [facility] ([facility]) [address] [place] [address] VIR Calcium [Mass/Vol] 9.0 mg/dL Normal 8.5-10.5 [facility] Comment on above: Performed By: #### C MP #### [facility] ([facility]) [address] [place] [address] VIR Chloride [Moles/Vol] 110 mmol/L High 98-109 [facility] Comment on above: Performed By: #### C MP #### [facility] ([facility]) [address] [place] [address] VIR CO2 [Moles/Vol] 23 mmol/L Normal 22-32 [facility] Comment on above: Performed By: #### C MP #### [facility] ([facility]) [address] [place] [address] VIR Creatinine [Mass/Vol] 1.01 mg/dL High 0.40-1.00 [facility] Comment on above: Result Comment: METH OD TRACEABLE TO IDMS STANDARD Performed By: #### C MP #### [facility] ([facility]) [address] [place] [address] VIR GFR/1.73 sq M.predicted among non-blacks MDRD (S/P/Bld) [Vol rate/Area] 65 mL/min/{1.73_m2} Normal >=60 [facility] Comment on above: Result Comment: Repo rted eGFR is based on the CKD-EPI 2020 equation that does not use a race coefficient. Performed By: #### C MP #### [facility] ([facility]) [address] [place] [address] VIR Glucose [Mass/Vol] 129 mg/dL High 65-99 [facility] Comment on above: Performed By: #### C MP #### [facility] ([facility]) [address] [place] [address] VIR Potassium [Moles/Vol] 4.4 mmol/L Normal 3.5-5.0 [facility] Comment on above: Performed By: #### C MP #### [facility] ([facility]) [address] [place] [address] VIR Sodium [Moles/Vol] 144 mmol/L Normal 134-146 [facility] Comment on above: Performed By: #### C MP #### [facility] ([facility]) [address] [place] [address] VIR Urea nitrogen [Mass/Vol] 24 mg/dL High 5-23 [facility] Comment on above: Performed By: #### C MP #### [facility] ([facility]) [address] [place] [address] VIR Basic Metabolic PanelOrdered By: Rosenda Hernández on 09-22-2024 Anion gap [Moles/Vol] 11 mmol/L 5 - 15 mmol/L [facility] Calcium [Mass/Vol] 9 mg/dL 8.5 - 10. 5 mg/dL [facility] Chloride [Moles/Vol] 110 mmol/L High 98 - 10 9 mmol/L [facility] CO2 [Moles/Vol] 23 mmol/L 22 - 32 mmol/L [facility] Creatinine [Mass/Vol] 1.01 mg/dL High 0.40 - 1.00 mg/dL [facility] EGFR Non-Race Dependent 65 - PINF P [facility] Glucose [Mass/Vol] 129 mg/dL High 65 - 99 mg/dL [facility] Interpretation and review of laboratory results Abnormal [facility] Potassium [Moles/Vol] 4.4 mmol/L 3.5 - 5.0 mmol/L [facility] Sodium [Moles/Vol] 144 mmol/L 134 - 146 mmol/L [facility] Urea nitrogen [Mass/Vol] 24 mg/dL High 5 - 23 mg/dL [facility] CBC WITH AUTO DIFFERENTIALon 09-22-2024 BASOPHILS ABSOLUTE COUNT (10*3/UL) BY AUTOMATED COUNT 0.0 10*3/uL Normal [facility] Comment on above: Performed By: #### C MP #### [facility] ([facility]) [address] [place] [address] VIR BASOPHILS RELATIVE PERCENT BY AUTOMATED COUNT 0.3 % Normal [facility] Comment on above: Performed By: #### C MP #### [facility] ([facility]) [address] [place] [address] VIR CELLAVISION DIFFERENTIAL TYPE AUTOMATED DIFFERENTIAL Normal [facility] Comment on above: Performed By: #### C MP #### [facility] ([facility]) [address] [place] [address] VIR Eosinophils (Bld) [#/Vol] 0.0 10*3/uL Normal [facility] Comment on above: Performed By: #### C MP #### [facility] ([facility]) [address] [place] [address] VIR EOSINOPHILS RELATIVE PERCENT BY AUTOMATED COUNT 0.0 % Normal [facility] Comment on above: Performed By: #### C MP #### [facility] ([facility]) [address] [place] [address] VIR Erythrocyte distribution width (RBC) [Ratio] 15.5 % High 11.5-15 [facility] Comment on above: Performed By: #### C MP #### [facility] ([facility]) [address] [place] [address] VIR Hematocrit (Bld) [Volume fraction] 38.0 % Normal 35-47 [facility] Comment on above: Performed By: #### C MP #### [facility] ([facility]) [address] [place] [address] VIR Hemoglobin (Bld) [Mass/Vol] 12.3 g/dL Normal 11.7-15.5 [facility] Comment on above: Performed By: #### C MP #### [facility] ([facility]) [address] [place] [address] VIR LYMPHOCYTES ABSOLUTE COUNT (10*3/UL) BY AUTOMATED COUNT 0.9 10*3/uL Normal [facility] Comment on above: Performed By: #### C MP #### [facility] ([facility]) [address] [place] [address] VIR LYMPHOCYTES RELATIVE PERCENT BY AUTOMATED COUNT 6.4 % Normal [facility] Comment on above: Performed By: #### C MP #### [facility] ([facility]) [address] [place] [address] VIR MCH (RBC) [Entitic mass] 27.0 pg Normal 27-34 [facility] Comment on above: Performed By: #### C MP #### [facility] ([facility]) [address] [place] [address] VIR MCHC (RBC) [Mass/Vol] 32.5 g/dL Normal 32-36 [facility] Comment on above: Performed By: #### C MP #### [facility] ([facility]) [address] [place] [address] VIR MCV (RBC) [Entitic vol] 83 fL Normal 80-100 [facility] Comment on above: Performed By: #### C MP #### [facility] ([facility]) [address] [place] [address] VIR MONOCYTES ABSOLUTE COUNT (10*3/UL) BY AUTOMATED COUNT 0.8 10*3/uL Normal [facility] Comment on above: Performed By: #### C MP #### [facility] ([facility]) [address] [place] [address] VIR MONOCYTES RELATIVE PERCENT BY AUTOMATED COUNT 6.0 % Normal [facility] Comment on above: Performed By: #### C MP #### [facility] ([facility]) [address] [place] [address] VIR NEUTROPHILS ABSOLUTE COUNT BY AUTOMATED COUNT 11.9 10*3/uL Normal [facility] Comment on above: Performed By: #### C MP #### [facility] ([facility]) [address] [place] [address] VIR NEUTROPHILS RELATIVE PERCENT BY AUTOMATED COUNT 87.3 % Normal [facility] Comment on above: Performed By: #### C MP #### [facility] ([facility]) [address] [place] [address] VIR Platelet mean volume (Bld) [Entitic vol] 9.6 fL Normal 7-12 [facility] Comment on above: Performed By: #### C MP #### [facility] ([facility]) [address] [place] [address] VIR Platelets (Bld) [#/Vol] 167 10*3/uL Normal 150-450 [facility] Comment on above: Performed By: #### C MP #### [facility] ([facility]) [address] [place] [address] VIR RBC COUNT 4.57 X10E12/L Normal 3.8-5.2 [facility] Comment on above: Performed By: #### C MP #### [facility] ([facility]) [address] [place] [address] VIR WBC (Bld) [#/Vol] 13.7 10*3/uL High 4-11 [facility] Comment on above: Performed By: #### C MP #### [facility] ([facility]) [address] [place] [address] VIR CBC auto differentialon 05-0 -2024 Basophils (Bld) [#/Vol] 0 10*3/uL P [facility] Basophils/100 WBC (Bld) 0.3 % P [facility] Differential cell count method Nom (Bld) AUTOMATED DIFFERENTIAL [facility] Eosinophils (Bld) [#/Vol] 0 10*3/uL [facility] Eosinophils/100 WBC (Bld) 0 % [facility] Erythrocyte distribution width (RBC) [Ratio] 15.5 % High 11.5 - 15 % [facility] Hematocrit (Bld) [Volume fraction] 38 % 35 - 47 % [facility] Hemoglobin (Bld) [Mass/Vol] 12.3 g/dL 11.7 - 15.5 g/dL [facility] Interpretation and review of laboratory results Abnormal [facility] Lymphocytes (Bld) [#/Vol] 0.9 10*3/uL [facility] Lymphocytes/100 WBC (Bld) 6.4 % [facility] MCH (RBC) [Entitic mass] 27 pg 27 - 34 pg [facility] MCHC (RBC) [Mass/Vol] 32.5 g/dL 32 - 3 6 g/dL [facility] MCV (RBC) [Entitic vol] 83 fL 80 - 100 fL [facility] Monocytes (Bld) [#/Vol] 0.8 10*3/uL [facility] Monocytes/100 WBC (Bld) 6 % P [facility] Neutrophils (Bld) [#/Vol] 11.9 10*3/uL [facility] Neutrophils/100 WBC (Bld) 87.3 % [facility] Platelet mean volume (Bld) [Entitic vol] 9.6 fL 7 - 12 fL [facility] Platelets (Bld) [#/Vol] 167 10*3/uL [facility] RBC (Bld) [#/Vol] 4.57 10*6/uL [facility] WBC LM Ql (Sput) 13.7 High [facility] Cardiac echo study Procedure Ordered By: Nava Gamez on 09-22-2024 Aortic root 3 cm [facility] Work Phone: Aortic valve Mean systole pressure gradient by US.doppler derived full Bernoulli 4 mmHg [facility] Work Phone: Aortic valve Orifice area by US 3.39 [employer] Work Phone: Aortic valve Peak systolic flow by US.doppler 132 cm/s [employer] Work Phone: AV peak gradient 6.97 mmHg [employer] Work Phone: AV Velocity Ratio 0.98 [employer] Work Phone: AV VTI 28.3 cm [employer] Work Phone: E wave deceleration time 369 msec [employer] Work Phone: E/A ratio 0.5 [employer] Work Phone: Energy loss index 16.04 [employer] Work Phone: FS 46 % 28 - 44 % [employer] Work Phone: Interventricular Septum Diastolic Thickness by 2D 10 cm [employer] Work Phone: IVS 1 cm 0.6 - 1.1 cm [employer] Work Phone: LA size 3.2 cm [employer] Work Phone: LA volume 66.4 cm3 [employer] Work Phone: LA Volume Index 28.1 mL/m2 [employer] Work Phone: Left Ventricle Mass [id number] g [employer] Work Phone: LV ESV A2C 53.2 mL [employer] Work Phone: LV ESV A4C 78.5 mL [employer] Work Phone: LV RWT 2D 56.41 [employer] Work Phone: LVIDd 3.9 cm 7.16 - 9.95 cm [employer] Work Phone: LVIDs 2.1 cm 4.15 - 6.28 cm [employer] Work Phone: LVOT diameter 2.1 cm [employer] Work Phone: LVOT peak dayday 1.35 m/s [facility] Work Phone: LVOT peak VTI 27.7 cm [facility] Work Phone: LVOT stroke volume 95.94 ml [facility] [employer] Work Phone: Mitral Valve Max Velocity 2.24 cm/s [facility] Work Phone: MV mean gradient 10 mmHg [facility] [employer] Work Phone: MV Peak A Dayday 172 cm/s [facility] Work Phone: MV Peak E Dayday 86.8 cm/s [facility] Work Phone: MV peak gradient 20.07 mmHg [facility] [employer] Work Phone: MV pressure 1/2 time 108 ms [facility] [employer] Work Phone: MV TDI E' (medial) 3.92 cm/s [facility] [employer] Work Phone: MV valve area by continuity eq 1.35 [facility] Work Phone: MV valve area p 1/2 method 2.04 cm2 [facility] Work Phone: MV VTI 71 cm [facility] Work Phone: PV peak gradient 3.41 mmHg [facility] Work Phone: PW 1.1 cm 0.6 - 1.1 cm [facility] Work Phone: RV diastolic dimension (basal) 38 mm [employer] Work Phone: TAPSE 2.39 cm [facility] Work Phone: TDI 3.81 cm/s [facility] Work Phone: Valve area - Index 1.4 [facility] [employer] Work Phone: ZLVIDD -7.72 [facility] Work Phone: ZLVIDS -7.02 [facility] [employer] Work Phone: [facility] [employer] Work Phone: Cardiac echo study Procedure on 09-22-2024 XCELERA Radiology Study observation (narrative) [facility] ELECTROLYTE PANELon 09-23-19 25 Anion gap [Moles/Vol] 11 mmol/L Normal 5-15 [facility] Comment on above: Performed By: #### C MP #### [facility] ([facility]) [address] [place] [address] VIR Chloride [Moles/Vol] 109 mmol/L Normal 98-109 [facility] Comment on above: Performed By: #### C MP #### [facility] ([facility]) [address] [place] [address] VIR CO2 [Moles/Vol] 22 mmol/L Normal 22-32 [facility] Comment on above: Performed By: #### C MP #### [facility] ([facility]) [address] [place] [address] VIR Potassium [Moles/Vol] 4.5 mmol/L Normal 3.5-5.0 [facility] Comment on above: Performed By: #### C MP #### [facility] ([facility]) [address] [place] [address] VIR Sodium [Moles/Vol] 142 mmol/L Normal 134-146 [facility] Comment on above: Performed By: #### C MP #### [facility] ([facility]) [address] [place] [address] VIR Anion gap [Moles/Vol] 10 mmol/L Normal 5-15 [facility] Comment on above: Performed By: #### C MP #### [facility] ([facility]) [address] [place] [address] VIR Chloride [Moles/Vol] 110 mmol/L High 98-109 [facility] Comment on above: Performed By: #### C MP #### [facility] ([facility]) [address] [place] [address] VIR CO2 [Moles/Vol] 23 mmol/L Normal 22-32 [facility] Comment on above: Performed By: #### C MP #### [facility] ([facility]) [address] [place] [address] VIR Potassium [Moles/Vol] 4.1 mmol/L Normal 3.5-5.0 [facility] Comment on above: Performed By: #### C MP #### [facility] ([facility]) [address] [place] [address] VIR Sodium [Moles/Vol] 143 mmol/L Normal 134-146 [facility] Comment on above: Performed By: #### C MP #### [facility] ([facility]) [address] [place] [address] VIR Electrolyte panelOrdered By: Leif Bazan on 09-22-2024 Anion gap [Moles/Vol] 11 mmol/L 5 - 15 mmol/L [facility] Chloride [Moles/Vol] 109 mmol/L 98 - 10 9 mmol/L [facility] CO2 [Moles/Vol] 22 mmol/L 22 - 32 mmol/L [facility] Interpretation and review of laboratory results Normal [facility] Potassium [Moles/Vol] 4.5 mmol/L 3.5 - 5.0 mmol/L [facility] Sodium [Moles/Vol] 142 mmol/L 134 - 146 mmol/L [facility] Electrolyte panelOrdered By: Mao Toro on 09-22-2024 Anion gap [Moles/Vol] 10 mmol/L 5 - 15 mmol/L [facility] Chloride [Moles/Vol] 110 mmol/L High 98 - 10 9 mmol/L [facility] CO2 [Moles/Vol] 23 mmol/L 22 - 32 mmol/L [facility] Interpretation and review of laboratory results Abnormal [facility] Potassium [Moles/Vol] 4.1 mmol/L 3.5 - 5.0 mmol/L [facility] Sodium [Moles/Vol] 143 mmol/L 134 - 146 mmol/L [facility] IONIZED CALCIUMon 09-22-2024 IONIZED CALCIUM - ICAN 4.6 mg/dL Normal 4.5-5.3 [facility] Comment on above: Performed By: #### C MP #### [facility] ([facility]) [address] [place] [address] VIR Ionized calciumOrdered By: Jose Vásquez on 09-22-2024 Calcium.ionized ISE [Moles/Vol] 4.6 mg/dL 4.5 - 5.3 mg/dL [facility] Interpretation and review of laboratory results Normal [facility] MAGNESIUMon 09-22-2024 Magnesium [Mass/Vol] 1.9 mg/dL Normal 1.8-2.6 [facility] Comment on above: Performed By: #### C MP #### [facility] ([facility]) [address] [place] [address] VIR Magnesiumon 09-22-2024 Magnesium [Mass/Vol] 1.9 mg/dL 1.8 - 2 .6 mg/dL [facility] No Panel Informationon 09-22 Interpretation and review of laboratory results Normal [facility] PHOSPHORUSon 09-22-2024 Phosphate [Mass/Vol] 3.3 mg/dL Normal 2.4-4.9 [facility] Comment on above: Performed By: #### C MP #### [facility] ([facility]) [address] [place] [address] VIR Phosphoruson 09-22-2024 Phosphate [Mass/Vol] 3.3 mg/dL 2.4 - 4 .9 mg/dL [facility] TYPE AND SCREENon 09-22-2024 ABO_INTEP O Normal [facility] Comment on above: Performed By: #### T NIH #### [facility] ([facility]) [address] [place] [address] VIR RH_INTEP Positive Normal [facility] Comment on above: Performed By: #### T NIHS1 #### [facility] ([facility]) [address] [facility] [place] [address] VIR Type and screen(includes ind irect sinan)on 09-22-2024 ABO O [facility] Rh Nom (Bld) Positive [facility] VANCOMYCIN, RANDOMon 025 VANCOMYCIN 16.5 ug/mL Normal 5.0-40.0 [facility] Comment on above: Order Comment: Peak 30-40 ug/mLTrough 5-20 ug/ml Performed By: #### C MP #### [facility] ([facility]) [address] [place] [address] VIR Vancomycin, randomon 025 Vancomycin [Susc] 16.5 ug/mL 5.0 - 40.0 ug/mL [facility] MAGI Screen w/ Reflexon 09-21 Interpretation and review of laboratory results Normal [facility] Nuclear Ab IA Ql (S) Negative Negative [facility] BASIC METABOLIC PANELon Anion gap [Moles/Vol] 10 mmol/L Normal 5-15 [facility] Comment on above: Performed By: #### L ACTS #### [facility] ([facility]) [address] [place] [address] VIR Calcium [Mass/Vol] 9.2 mg/dL Normal 8.5-10.5 [facility] Comment on above: Performed By: #### L ACTS #### [facility] ([facility]) [address] [place] [address] VIR Chloride [Moles/Vol] 114 mmol/L High 98-109 [facility] Comment on above: Performed By: #### L ACTS #### [facility] ([facility]) [address] [place] [address] VIR CO2 [Moles/Vol] 24 mmol/L Normal 22-32 [facility] Comment on above: Performed By: #### L ACTS #### [facility] ([facility]) [address] [place] [address] VIR Creatinine [Mass/Vol] 1.27 mg/dL High 0.40-1.00 [facility] Comment on above: Result Comment: METH OD TRACEABLE TO IDMS STANDARD Performed By: #### L ACTS #### [facility] ([facility]) [address] [place] [address] VIR GFR/1.73 sq M.predicted among non-blacks MDRD (S/P/Bld) [Vol rate/Area] 50 mL/min/{1.73_m2} Low >=60 [facility] Comment on above: Result Comment: Repo rted eGFR is based on the CKD-EPI 2020 equation that does not use a race coefficient. Performed By: #### L ACTS #### [facility] ([facility]) [address] [place] [address] VIR Glucose [Mass/Vol] 127 mg/dL High 65-99 [facility] Comment on above: Performed By: #### L ACTS #### [facility] ([facility]) [address] [place] [address] VIR Potassium [Moles/Vol] 3.9 mmol/L Normal 3.5-5.0 [facility] Comment on above: Performed By: #### L ACTS #### [facility] ([facility]) [address] [place] [address] VIR Sodium [Moles/Vol] 148 mmol/L High 134-146 [facility] Comment on above: Performed By: #### L ACTS #### [facility] ([facility]) [address] [place] [address] VIR Urea nitrogen [Mass/Vol] 24 mg/dL High 5-23 [facility] Comment on above: Performed By: #### L ACTS #### [facility] ([facility]) [address] [place] [address] VIR Bacteria identified Aer cx N om (Bld)Ordered By: Maicol Mg on 09-21-2024 Bacteria identified Aer cx Nom (Unsp spec) Negative Abnormal [facility] Interpretation and review of laboratory results Abnormal [facility] Microscopic observation Gram stain Nom (Unsp spec) Positive Abnormal [facility] Basic Metabolic Panelon Anion gap [Moles/Vol] 10 mmol/L 5 - 15 mmol/L [facility] Calcium [Mass/Vol] 9.2 mg/dL 8.5 - 10. 5 mg/dL [facility] Chloride [Moles/Vol] 114 mmol/L High 98 - 10 9 mmol/L [facility] CO2 [Moles/Vol] 24 mmol/L 22 - 32 mmol/L [facility] Creatinine [Mass/Vol] 1.27 mg/dL High 0.40 - 1.00 mg/dL [facility] EGFR Non-Race Dependent 50 Low - PINF P [facility] Glucose [Mass/Vol] 127 mg/dL High 65 - 99 mg/dL [facility] Interpretation and review of laboratory results Abnormal [facility] Potassium [Moles/Vol] 3.9 mmol/L 3.5 - 5.0 mmol/L [facility] Sodium [Moles/Vol] 148 mmol/L High 134 - 146 mmol/L [facility] Urea nitrogen [Mass/Vol] 24 mg/dL High 5 - 23 mg/dL [facility] CBC WITH AUTO DIFFERENTIALon 09-21-2024 BASOPHILS ABSOLUTE COUNT (10*3/UL) BY AUTOMATED COUNT 0.1 10*3/uL Normal [facility] Comment on above: Performed By: #### A MMON #### [facility] ([facility]) [address] [place] [address] VIR BASOPHILS RELATIVE PERCENT BY AUTOMATED COUNT 0.7 % Normal [facility] Comment on above: Performed By: #### A MMON #### [facility] ([facility]) [address] [place] [address] VIR CELLAVISION DIFFERENTIAL TYPE AUTOMATED DIFFERENTIAL Normal [facility] Comment on above: Performed By: #### A MMON #### [facility] ([facility]) [address] [place] [address] VIR Eosinophils (Bld) [#/Vol] 0.0 10*3/uL Normal [facility] Comment on above: Performed By: #### A MMON #### [facility] ([facility]) [address] [place] [address] VIR EOSINOPHILS RELATIVE PERCENT BY AUTOMATED COUNT 0.0 % Normal [facility] Comment on above: Performed By: #### A MMON #### [facility] ([facility]) [address] [place] [address] VIR Erythrocyte distribution width (RBC) [Ratio] 15.1 % High 11.5-15 [facility] Comment on above: Performed By: #### A MMON #### [facility] ([facility]) [address] [place] [address] VIR Hematocrit (Bld) [Volume fraction] 33.6 % Low 35-47 [facility] Comment on above: Performed By: #### A MMON #### [facility] ([facility]) [address] [place] [address] VIR Hemoglobin (Bld) [Mass/Vol] 11.0 g/dL Low 11.7-15.5 [facility] Comment on above: Performed By: #### A MMON #### [facility] ([facility]) [address] [place] [address] VIR LYMPHOCYTES ABSOLUTE COUNT (10*3/UL) BY AUTOMATED COUNT 0.8 10*3/uL Normal [facility] Comment on above: Performed By: #### A MMON #### [facility] ([facility]) [address] [place] [address] VIR LYMPHOCYTES RELATIVE PERCENT BY AUTOMATED COUNT 6.2 % Normal [facility] Comment on above: Performed By: #### A MMON #### [facility] ([facility]) [address] [place] [address] VIR MCH (RBC) [Entitic mass] 27.1 pg Normal 27-34 [facility] Comment on above: Performed By: #### A MMON #### [facility] ([facility]) [address] [place] [address] VIR MCHC (RBC) [Mass/Vol] 32.6 g/dL Normal 32-36 [facility] Comment on above: Performed By: #### A MMON #### [facility] ([facility]) [address] [place] [address] VIR MCV (RBC) [Entitic vol] 83 fL Normal 80-100 [facility] Comment on above: Performed By: #### A MMON #### [facility] ([facility]) [address] [place] [address] VIR MONOCYTES ABSOLUTE COUNT (10*3/UL) BY AUTOMATED COUNT 0.6 10*3/uL Normal [facility] Comment on above: Performed By: #### A MMON #### [facility] ([facility]) [address] [place] [address] VIR MONOCYTES RELATIVE PERCENT BY AUTOMATED COUNT 4.8 % Normal [facility] Comment on above: Performed By: #### A MMON #### [facility] ([facility]) [address] [place] [address] VIR NEUTROPHILS ABSOLUTE COUNT BY AUTOMATED COUNT 10.8 10*3/uL Normal [facility] Comment on above: Performed By: #### A MMON #### [facility] ([facility]) [address] [place] [address] VIR NEUTROPHILS RELATIVE PERCENT BY AUTOMATED COUNT 88.3 % Normal [facility] Comment on above: Performed By: #### A MMON #### [facility] ([facility]) [address] [place] [address] VIR Platelet mean volume (Bld) [Entitic vol] 9.2 fL Normal 7-12 [facility] Comment on above: Performed By: #### A MMON #### [facility] ([facility]) [address] [place] [address] VIR Platelets (Bld) [#/Vol] 183 10*3/uL Normal 150-450 [facility] Comment on above: Performed By: #### A MMON #### [facility] ([facility]) [address] [place] [address] VIR RBC COUNT 4.05 [id number]/L Normal 3.8-5.2 [facility] Comment on above: Performed By: #### A MMON #### [facility] ([facility]) [address] [place] [address] VIR WBC (Bld) [#/Vol] 12.2 10*3/uL High 4-11 [facility] Comment on above: Performed By: #### A MMON #### [facility] ([facility]) [address] [place] [address] VIR CBC auto differentialon 05-0 Basophils (Bld) [#/Vol] 0.1 10*3/uL [facility] Basophils/100 WBC (Bld) 0.7 % P [facility] Differential cell count method Nom (Bld) AUTOMATED DIFFERENTIAL [facility] Eosinophils (Bld) [#/Vol] 0 10*3/uL [facility] Eosinophils/100 WBC (Bld) 0 % [facility] Erythrocyte distribution width (RBC) [Ratio] 15.1 % High 11.5 - 15 % [facility] Hematocrit (Bld) [Volume fraction] 33.6 % Low 35 - 47 % [facility] Hemoglobin (Bld) [Mass/Vol] 11 g/dL Low 11.7 - 15.5 g/dL [facility] Interpretation and review of laboratory results Abnormal [facility] Lymphocytes (Bld) [#/Vol] 0.8 10*3/uL [facility] Lymphocytes/100 WBC (Bld) 6.2 % [facility] MCH (RBC) [Entitic mass] 27.1 pg 27 - 34 pg [facility] MCHC (RBC) [Mass/Vol] 32.6 g/dL 32 - 3 6 g/dL [facility] MCV (RBC) [Entitic vol] 83 fL 80 - 100 fL [facility] Monocytes (Bld) [#/Vol] 0.6 10*3/uL [facility] Monocytes/100 WBC (Bld) 4.8 % [facility] Neutrophils (Bld) [#/Vol] 10.8 10*3/uL [facility] Neutrophils/100 WBC (Bld) 88.3 % [facility] Platelet mean volume (Bld) [Entitic vol] 9.2 fL 7 - 12 fL [facility] Platelets (Bld) [#/Vol] 183 10*3/uL [facility] RBC (Bld) [#/Vol] 4.05 10*6/uL [facility] WBC LM Ql (Sput) 12.2 High [facility] ELECTROLYTE PANELon 09-22-19 25 Anion gap [Moles/Vol] 11 mmol/L Normal 5-15 [facility] Comment on above: Performed By: #### C MP #### [facility] ([facility]) [address] [place] [address] VIR Chloride [Moles/Vol] 113 mmol/L High 98-109 [facility] Comment on above: Performed By: #### C MP #### [facility] ([facility]) [address] [place] [address] VIR CO2 [Moles/Vol] 22 mmol/L Normal 22-32 [facility] Comment on above: Performed By: #### C MP #### [facility] ([facility]) [address] [place] [address] VIR Potassium [Moles/Vol] 4.2 mmol/L Normal 3.5-5.0 [facility] Comment on above: Performed By: #### C MP #### [facility] ([facility]) [address] [place] [address] VIR Sodium [Moles/Vol] 146 mmol/L Normal 134-146 [facility] Comment on above: Performed By: #### C MP #### [facility] ([facility]) [address] [place] [address] VIR Anion gap [Moles/Vol] 9 mmol/L Normal 5-15 [facility] Comment on above: Performed By: #### L ACTS #### [facility] ([facility]) [address] [place] [address] VIR Chloride [Moles/Vol] 112 mmol/L High 98-109 [facility] Comment on above: Performed By: #### L ACTS #### [facility] ([facility]) [address] [place] [address] VIR CO2 [Moles/Vol] 24 mmol/L Normal 22-32 [facility] Comment on above: Performed By: #### L ACTS #### [facility] ([facility]) [address] [place] [address] VIR Potassium [Moles/Vol] 4.1 mmol/L Normal 3.5-5.0 [facility] Comment on above: Performed By: #### L ACTS #### [facility] ([facility]) [address] [place] [address] VIR Sodium [Moles/Vol] 145 mmol/L Normal 134-146 [facility] Comment on above: Performed By: #### L ACTS #### [facility] ([facility]) [address] [place] [address] VIR Electrolyte panelOrdered By: Tk Keene on 09-21-2024 Anion gap [Moles/Vol] 11 mmol/L 5 - 15 mmol/L [facility] Chloride [Moles/Vol] 113 mmol/L High 98 - 10 9 mmol/L [facility] CO2 [Moles/Vol] 22 mmol/L 22 - 32 mmol/L [facility] Interpretation and review of laboratory results Abnormal [facility] Potassium [Moles/Vol] 4.2 mmol/L 3.5 - 5.0 mmol/L [facility] Sodium [Moles/Vol] 146 mmol/L 134 - 146 mmol/L [facility] Electrolyte panelOrdered By: Alexa Carrero on 09-21-2024 Anion gap [Moles/Vol] 9 mmol/L 5 - 15 mmol/L [facility] Chloride [Moles/Vol] 112 mmol/L High 98 - 10 9 mmol/L [facility] CO2 [Moles/Vol] 24 mmol/L 22 - 32 mmol/L [facility] Interpretation and review of laboratory results Abnormal [facility] Potassium [Moles/Vol] 4.1 mmol/L 3.5 - 5.0 mmol/L [facility] Sodium [Moles/Vol] 145 mmol/L 134 - 146 mmol/L [facility] Glomerular basement membrane IgG ABon 09-21-2024 Glomerular basement membrane IgG Qn (S) NINF [facility] IONIZED CALCIUMon 09-21-2024 IONIZED CALCIUM - ICAN 5.1 mg/dL Normal 4.5-5.3 [facility] Comment on above: Performed By: #### A MMON #### [facility] ([facility]) [address] [place] [address] VIR IONIZED MAGNESIUMon 09-22-19 Magnesium [Moles/Vol] 0.61 mmol/L Normal 0.45-0.74 [facility] Comment on above: Performed By: #### L ACTS #### [facility] ([facility]) [address] [place] [address] VIR Ionized calciumon 09-21-2024 Calcium.ionized ISE [Moles/Vol] 5.1 mg/dL 4.5 - 5.3 mg/dL [facility] Interpretation and review of laboratory results Normal [facility] Ionized magnesiumon 09-22-19 Interpretation and review of laboratory results Normal [facility] Magnesium Ionized ISE (Bld) [Moles/Vol] 0.61 mmol/L 0.45 - 0.74 mmol/L [facility] MAGNESIUMon 09-21-2024 Magnesium [Mass/Vol] 1.8 mg/dL Normal 1.8-2.6 [facility] Comment on above: Performed By: #### A MMON #### [facility] ([facility]) [address] [place] [address] VIR Magnesiumon 09-21-2024 Magnesium [Mass/Vol] 1.8 mg/dL 1.8 - 2 .6 mg/dL [facility] Myeloperoxidase ABon 025 Myeloperoxidase Ab Qn (S) NINF [facility] No Panel Informationon 09-21 Interpretation and review of laboratory results Normal [facility] Interpretation and review of laboratory results Normal [facility] PHOSPHORUSon 09-21-2024 Phosphate [Mass/Vol] 2.7 mg/dL Normal 2.4-4.9 [facility] Comment on above: Performed By: #### L ACTS #### [facility] ([facility]) [address] [place] [address] VIR Phosphoruson 09-21-2024 Phosphate [Mass/Vol] 2.7 mg/dL 2.4 - 4 .9 mg/dL [facility] Proteinase 3 AB PR3on 2024 Proteinase 3 Ab Qn (S) NINF Pr [facility] VANCOMYCIN, RANDOMon 025 VANCOMYCIN 16.0 ug/mL Normal 5.0-40.0 [facility] Comment on above: Order Comment: Resul t did not trigger repeat Lactate, re-order if needed. Performed By: #### L ACTS #### [facility] ([facility]) [address] [place] [address] VIR Vancomycin, randomon 025 Interpretation and review of laboratory results Normal [facility] Vancomycin [Susc] 16 ug/mL 5.0 - 40.0 ug/mL [facility] BASIC METABOLIC PANELon Anion gap [Moles/Vol] 11 mmol/L Normal 5-15 [facility] Comment on above: Performed By: #### N UM #### [facility] ([facility]) [address] [place] [address] VIR Calcium [Mass/Vol] 9.3 mg/dL Normal 8.5-10.5 [facility] Comment on above: Performed By: #### N UM #### [facility] ([facility]) [address] [place] [address] VIR Chloride [Moles/Vol] 119 mmol/L High 98-109 [facility] Comment on above: Performed By: #### N UM #### [facility] ([facility]) [address] [place] [address] VIR CO2 [Moles/Vol] 24 mmol/L Normal 22-32 [facility] Comment on above: Performed By: #### N UM #### [facility] ([facility]) [address] [place] [address] VIR Creatinine [Mass/Vol] 2.60 mg/dL High 0.40-1.00 [facility] Comment on above: Result Comment: METH OD TRACEABLE TO IDMS STANDARD Performed By: #### N UM #### [facility] ([facility]) [address] [place] [address] VIR GFR/1.73 sq M.predicted among non-blacks MDRD (S/P/Bld) [Vol rate/Area] 21 mL/min/{1.73_m2} Low >=60 [facility] Comment on above: Result Comment: Repo rted eGFR is based on the CKD-EPI 2020 equation that does not use a race coefficient. Performed By: #### N UM #### [facility] ([facility]) [address] [place] [address] VIR Glucose [Mass/Vol] 149 mg/dL High 65-99 [facility] Comment on above: Performed By: #### N UM #### [facility] ([facility]) [address] [place] [address] VIR Potassium [Moles/Vol] 4.0 mmol/L Normal 3.5-5.0 [facility] Comment on above: Performed By: #### N UM #### [facility] ([facility]) [address] [place] [address] VIR Sodium [Moles/Vol] 154 mmol/L High 134-146 [facility] Comment on above: Performed By: #### N UM #### [facility] ([facility]) [address] [place] [address] VIR Urea nitrogen [Mass/Vol] 38 mg/dL High 5-23 [facility] Comment on above: Performed By: #### N UM #### [facility] ([facility]) [address] [place] [address] VIR BLOOD CULTUREon 09-20-2024 Bacteria identified Cx Nom (Bld) CULTURE RESULTS NO GROWTH 5 DAYS Normal [facility] Comment on above: Order Comment: Resul t did not trigger repeat Lactate, re-order if needed. Performed By: #### L ACTS #### [facility] ([facility]) [address] [place] [address] VIR Bacteria identified Cx Nom (Bld) CULTURE RESULTS NO GROWTH 5 DAYS Normal [facility] Comment on above: Order Comment: *SIRS Criteria: [...] be affected. Performed By: #### C #### [facility] ([facility]) [address] [place] [address] VIR Basic Metabolic Panelon 05- Anion gap [Moles/Vol] 11 mmol/L 5 - 15 mmol/L [facility] Calcium [Mass/Vol] 9.3 mg/dL 8.5 - 10. 5 mg/dL [facility] Chloride [Moles/Vol] 119 mmol/L High 98 - 10 9 mmol/L [facility] CO2 [Moles/Vol] 24 mmol/L 22 - 32 mmol/L [facility] Creatinine [Mass/Vol] 2.6 mg/dL High 0.40 - 1.00 mg/dL [facility] EGFR Non-Race Dependent 21 Low - PINF P [facility] Glucose [Mass/Vol] 149 mg/dL High 65 - 99 mg/dL [facility] Interpretation and review of laboratory results Abnormal [facility] Potassium [Moles/Vol] 4 mmol/L 3.5 - 5.0 mmol/L [facility] Sodium [Moles/Vol] 154 mmol/L High 134 - 146 mmol/L [facility] Urea nitrogen [Mass/Vol] 38 mg/dL High 5 - 23 mg/dL [facility] CBC WITH AUTO DIFFERENTIALon 09-20-2024 BASOPHILS ABSOLUTE COUNT (10*3/UL) BY AUTOMATED COUNT 0.0 10*3/uL Normal [facility] Comment on above: Performed By: #### N UM #### [facility] ([facility]) [address] [place] [address] VIR BASOPHILS RELATIVE PERCENT BY AUTOMATED COUNT 0.5 % Normal [facility] Comment on above: Performed By: #### N UM #### [facility] ([facility]) [address] [place] [address] VIR CELLAVISION DIFFERENTIAL TYPE AUTOMATED DIFFERENTIAL Normal [facility] Comment on above: Performed By: #### N UM #### [facility] ([facility]) [address] [place] [address] VIR Eosinophils (Bld) [#/Vol] 0.0 10*3/uL Normal [facility] Comment on above: Performed By: #### N UM #### [facility] ([facility]) [address] [place] [address] VIR EOSINOPHILS RELATIVE PERCENT BY AUTOMATED COUNT 0.0 % Normal [facility] Comment on above: Performed By: #### N UM #### [facility] ([facility]) [address] [place] [address] VIR Erythrocyte distribution width (RBC) [Ratio] 15.6 % High 11.5-15 [facility] Comment on above: Performed By: #### N UM #### [facility] ([facility]) [address] [place] [address] VIR Hematocrit (Bld) [Volume fraction] 33.5 % Low 35-47 [facility] Comment on above: Performed By: #### N UM #### [facility] ([facility]) [address] [place] [address] VIR Hemoglobin (Bld) [Mass/Vol] 11.0 g/dL Low 11.7-15.5 [facility] Comment on above: Performed By: #### N UM #### [facility] ([facility]) [address] [place] [address] VIR LYMPHOCYTES ABSOLUTE COUNT (10*3/UL) BY AUTOMATED COUNT 0.5 10*3/uL [facility] Comment on above: Performed By: #### N UM #### [facility] ([facility]) [address] [place] [address] VIR LYMPHOCYTES RELATIVE PERCENT BY AUTOMATED COUNT 5.6 % Normal [facility] Comment on above: Performed By: #### N UM #### [facility] ([facility]) [address] [place] [address] VIR MCH (RBC) [Entitic mass] 26.9 pg Low 27-34 [facility] Comment on above: Performed By: #### N UM #### [facility] ([facility]) [address] [place] [address] VIR MCHC (RBC) [Mass/Vol] 32.8 g/dL Normal 32-36 [facility] Comment on above: Performed By: #### N UM #### [facility] ([facility]) [address] [place] [address] VIR MCV (RBC) [Entitic vol] 82 fL Normal 80-100 [facility] Comment on above: Performed By: #### N UM #### [facility] ([facility]) [address] [place] [address] VIR MONOCYTES ABSOLUTE COUNT (10*3/UL) BY AUTOMATED COUNT 0.4 10*3/uL Normal [facility] Comment on above: Performed By: #### N UM #### [facility] ([facility]) [address] [place] [address] VIR MONOCYTES RELATIVE PERCENT BY AUTOMATED COUNT 4.3 % Normal [facility] Comment on above: Performed By: #### N UM #### [facility] ([facility]) [address] [place] [address] VIR NEUTROPHILS ABSOLUTE COUNT BY AUTOMATED COUNT 8.0 10*3/uL Normal [facility] Comment on above: Performed By: #### N UM #### [facility] ([facility]) [address] [place] [address] VIR NEUTROPHILS RELATIVE PERCENT BY AUTOMATED COUNT 89.6 % Normal [facility] Comment on above: Performed By: #### N UM #### [facility] ([facility]) [address] [place] [address] VIR Platelet mean volume (Bld) [Entitic vol] 9.0 fL Normal 7-12 [facility] Comment on above: Performed By: #### N UM #### [facility] ([facility]) [address] [place] [address] VIR Platelets (Bld) [#/Vol] 190 10*3/uL Normal 150-450 [facility] Comment on above: Performed By: #### N UM #### [facility] ([facility]) [address] [place] [address] VIR RBC COUNT 4.08 X10E12/L Normal 3.8-5.2 [facility] Comment on above: Performed By: #### N UM #### [facility] ([facility]) [address] [place] [address] VIR WBC (Bld) [#/Vol] 8.9 10*3/uL Normal 4-11 [facility] Comment on above: Performed By: #### N UM #### [facility] ([facility]) [address] [place] [address] VIR CBC auto differentialon 05-0 Basophils (Bld) [#/Vol] 0 10*3/uL [facility] Basophils/100 WBC (Bld) 0.5 % [facility] Differential cell count method Nom (Bld) AUTOMATED DIFFERENTIAL [facility] Eosinophils (Bld) [#/Vol] 0 10*3/uL [facility] Eosinophils/100 WBC (Bld) 0 % [facility] Erythrocyte distribution width (RBC) [Ratio] 15.6 % High 11.5 - 15 % [facility] Hematocrit (Bld) [Volume fraction] 33.5 % Low 35 - 47 % [facility] Hemoglobin (Bld) [Mass/Vol] 11 g/dL Low 11.7 - 15.5 g/dL [facility] Interpretation and review of laboratory results Abnormal [facility] Lymphocytes (Bld) [#/Vol] 0.5 10*3/uL [facility] Lymphocytes/100 WBC (Bld) 5.6 % [facility] MCH (RBC) [Entitic mass] 26.9 pg Low 27 - 34 pg [facility] MCHC (RBC) [Mass/Vol] 32.8 g/dL 32 - 3 6 g/dL [facility] MCV (RBC) [Entitic vol] 82 fL 80 - 100 fL [facility] Monocytes (Bld) [#/Vol] 0.4 10*3/uL [facility] Monocytes/100 WBC (Bld) 4.3 % [facility] Neutrophils (Bld) [#/Vol] 8 10*3/uL [facility] Neutrophils/100 WBC (Bld) 89.6 % [facility] Platelet mean volume (Bld) [Entitic vol] 9 fL 7 - 12 fL [facility] Platelets (Bld) [#/Vol] 190 10*3/uL [facility] RBC (Bld) [#/Vol] 4.08 10*6/uL [facility] WBC LM Ql (Sput) 8.9 [facility] CT ABDOMEN AND PELVIS WO [...] Mejia MD on 09/20/2024 3:53 PM Normal [facility] CT Abdomen and Pelvis WO con traston 09-20-2024 SECTRAPACS [facility] Radiology Study observation (narrative) [facility] CT Abdomen and Pelvis WO con trastOrdered By: Bipin Mejia on 09-20-2024 [facility] Work Phone: ELECTROLYTE PANELon 09-21-19 25 Anion gap [Moles/Vol] 9 mmol/L Normal 5-15 [facility] Comment on above: Performed By: #### A MMON #### [facility] ([facility]) [address] [place] [address] VIR Chloride [Moles/Vol] 113 mmol/L High 98-109 [facility] Comment on above: Performed By: #### A MMON #### [facility] ([facility]) [address] [place] [address] VIR CO2 [Moles/Vol] 25 mmol/L Normal 22-32 [facility] Comment on above: Performed By: #### A MMON #### [facility] ([facility]) [address] [place] [address] VIR Potassium [Moles/Vol] 5.1 mmol/L High 3.5-5.0 [facility] Comment on above: Result Comment: R-Sp ecimen markedly hemolyzed, results increased Performed By: #### A MMON #### [facility] ([facility]) [address] [place] [address] VIR Sodium [Moles/Vol] 147 mmol/L High 134-146 [facility] Comment on above: Result Comment: R-Sp ecimen markedly hemolyzed, results questionable due to hemolysis Performed By: #### A MMON #### [facility] ([facility]) [address] [place] [address] VIR Anion gap [Moles/Vol] 8 mmol/L Normal 5-15 [facility] Comment on above: Performed By: #### A MMON #### [facility] ([facility]) [address] [place] [address] VIR Chloride [Moles/Vol] 117 mmol/L High 98-109 [facility] Comment on above: Performed By: #### A MMON #### [facility] ([facility]) [address] [place] [address] VIR CO2 [Moles/Vol] 26 mmol/L Normal 22-32 [facility] Comment on above: Performed By: #### A MMON #### [facility] ([facility]) [address] [place] [address] VIR Potassium [Moles/Vol] 4.0 mmol/L Normal 3.5-5.0 [facility] Comment on above: Performed By: #### A MMON #### [facility] ([facility]) [address] [place] [address] VIR Sodium [Moles/Vol] 151 mmol/L High 134-146 [facility] Comment on above: Performed By: #### A MMON #### [facility] ([facility]) [address] [place] [address] VIR Electrolyte panelOrdered By: Med Quiros on 09-20-2024 Anion gap [Moles/Vol] 9 mmol/L 5 - 15 mmol/L [facility] Chloride [Moles/Vol] 113 mmol/L High 98 - 10 9 mmol/L [facility] CO2 [Moles/Vol] 25 mmol/L 22 - 32 mmol/L [facility] Interpretation and review of laboratory results Abnormal [facility] Potassium [Moles/Vol] 5.1 mmol/L High 3.5 - 5.0 mmol/L [facility] Sodium [Moles/Vol] 147 mmol/L High 134 - 146 mmol/L [facility] Electrolyte panelon 09-21-19 25 Anion gap [Moles/Vol] 8 mmol/L 5 - 15 mmol/L [facility] Chloride [Moles/Vol] 117 mmol/L High 98 - 10 9 mmol/L [facility] CO2 [Moles/Vol] 26 mmol/L 22 - 32 mmol/L [facility] Interpretation and review of laboratory results Abnormal [facility] Potassium [Moles/Vol] 4 mmol/L 3.5 - 5.0 mmol/L [facility] Sodium [Moles/Vol] 151 mmol/L High 134 - 146 mmol/L [facility] IONIZED CALCIUMon 09-20-2024 IONIZED CALCIUM - ICAN 5.2 mg/dL Normal 4.5-5.3 [facility] Comment on above: Performed By: #### N UM #### [facility] ([facility]) [address] [place] [address] VIR IONIZED MAGNESIUMon 09-21-19 25 Magnesium [Moles/Vol] 0.64 mmol/L Normal 0.45-0.74 [facility] Comment on above: Performed By: #### A MMON #### [facility] ([facility]) [address] [place] [address] VIR Ionized calciumon 09-20-2024 Calcium.ionized ISE [Moles/Vol] 5.2 mg/dL 4.5 - 5.3 mg/dL [facility] Interpretation and review of laboratory results Normal [facility] Ionized magnesiumon 09-21-19 25 Interpretation and review of laboratory results Normal [facility] Magnesium Ionized ISE (Bld) [Moles/Vol] 0.64 mmol/L 0.45 - 0.74 mmol/L [facility] MAGNESIUMon 09-20-2024 Magnesium [Mass/Vol] 1.8 mg/dL Normal 1.8-2.6 [facility] Comment on above: Performed By: #### N UM #### [facility] ([facility]) [address] [place] [address] VIR MR BRAIN SYNAPTIVEon 025 MR BRAIN SYNAPTIVE MR BRAIN SYNAPTIVE History: 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 I favor a primary [employer] neoplasm such as a glioblastoma or astrocytoma. Metastasis can also present in this fashion. Finalized by Juan Antonio Lindquist MD on 09/20/2024 7:17 AM Normal [facility] MR Brainon 09-20-2024 SECTRAPACS [facility] Radiology Study observation (narrative) [facility] MR BrainOrdered By: Juan Antonio gilmore on 09-20-2024 [facility] Work Phone: Magnesiumon 09-20-2024 Magnesium [Mass/Vol] 1.8 mg/dL 1.8 - 2 .6 mg/dL [facility] No Panel Informationon 09-20 Interpretation and review of laboratory results Normal [facility] PHOSPHORUSon 09-20-2024 Phosphate [Mass/Vol] 3.5 mg/dL Normal 2.4-4.9 [facility] Comment on above: Performed By: #### N UM #### [facility] ([facility]) [address] [place] [address] VIR Phosphoruson 09-20-2024 Phosphate [Mass/Vol] 3.5 mg/dL 2.4 - 4 .9 mg/dL [facility] VANCOMYCIN, RANDOMon 025 VANCOMYCIN 10.0 ug/mL Normal 5.0-40.0 [facility] Comment on above: Order Comment: Peak 30-40 ug/mLTrough 5-20 ug/ml Performed By: #### A MMON #### [facility] ([facility]) [address] [place] [address] VIR Vancomycin, randomon 025 Interpretation and review of laboratory results Normal [facility] Vancomycin [Susc] 10 ug/mL 5.0 - 40.0 ug/mL [facility] X-ray abdomen NG Tube placem ent 1 viewon 09-20-2024 SECTRAPACS [facility] Radiology Study observation (narrative) [facility] X-ray abdomen NG Tube placem ent 1 viewOrdered By: Thad Aguero on 09-20-2024 [facility] Work Phone: XR ABD NG TUBE PLACEMENT 1 V IEWon 09-20-2024 XR ABD NG TUBE PLACEMENT 1 VIEW XR ABD NG TUBE PLACEMENT 1 VIEW Supine abdominal radiograph HISTORY: NG placement COMPARISON: None IMPRESSION: NG tube extends below the diaphragm into the stomach with tip in the distal gastric body. Finalized by Thad Aguero MD on 09/20/2024 8:04 PM Normal [facility] AMMONIAon 09-19-2024 Ammonia (P) [Moles/Vol] 24 umol/L Normal 18-72 P [facility] Comment on above: Performed By: #### A MMON #### [facility] ([facility]) [address] [place] [address] VIR MAGI SCREEN W/ REFLEXon 09-19 MAGI SCREEN W/REFLEX Negative Normal Negative [facility] Comment on above: Order Comment: Resul t did not trigger repeat Lactate, re-order if needed. Performed By: #### L ACTS #### [facility] ([facility]) [address] [place] [address] VIR APTTon 09-19-2024 aPTT Coag (PPP) [Time] 28 s Pr [facility] Interpretation and review of laboratory results Normal [facility] aPTT Coag (Bld) [Time] 28 s Normal 26-37 Pr [facility] Comment on above: Performed By: #### P TT #### [facility] ([facility]) [address] [place] [address] VIR Ammoniaon 09-19-2024 Ammonia (P) [Moles/Vol] 24 umol/L 18 - 72 umol/L [facility] Interpretation and review of laboratory results Normal [facility] BASIC METABOLIC PANELon Anion gap [Moles/Vol] 17 mmol/L High 5-15 [facility] Comment on above: Performed By: #### P INR #### [facility] ([facility]) [address] [place] [address] VIR Calcium [Mass/Vol] 9.2 mg/dL Normal 8.5-10.5 [facility] Comment on above: Performed By: #### P INR #### [facility] ([facility]) [address] [place] [address] VIR Chloride [Moles/Vol] 120 mmol/L High 98-109 [facility] Comment on above: Performed By: #### P INR #### [facility] ([facility]) [address] [place] [address] VIR Creatinine [Mass/Vol] 7.54 mg/dL High 0.40-1.00 [facility] Comment on above: Result Comment: METH OD TRACEABLE TO IDMS STANDARD Performed By: #### P INR #### [facility] ([facility]) [address] [place] [address] VIR GFR/1.73 sq M.predicted among non-blacks MDRD (S/P/Bld) [Vol rate/Area] 6 mL/min/{1.73_m2} Low >=60 [facility] Comment on above: Result Comment: Repo rted eGFR is based on the CKD-EPI 2020 equation that does not use a race coefficient. Performed By: #### P INR #### [facility] ([facility]) [address] [place] [address] VIR Glucose [Mass/Vol] 107 mg/dL High 65-99 [facility] Comment on above: Performed By: #### P INR #### [facility] ([facility]) [address] [place] [address] VIR Potassium [Moles/Vol] 4.5 mmol/L Normal 3.5-5.0 [facility] Comment on above: Performed By: #### P INR #### [facility] ([facility]) [address] [place] [address] VIR Sodium [Moles/Vol] 159 mmol/L High 134-146 [facility] Comment on above: Performed By: #### P INR #### [facility] ([facility]) [address] [place] [address] VIR Urea nitrogen [Mass/Vol] 81 mg/dL High 5-23 [facility] Comment on above: Performed By: #### P INR #### [facility] ([facility]) [address] [place] [address] VIR BEDSIDE GLUCOSEon 09-19-2024 Glucose [Mass/Vol] 110 mg/dL High 65-99 [facility] Comment on above: Performed By: #### N UM #### [facility] ([facility]) [address] [place] [address] VIR BLOOD CULTUREon 09-19-2024 Bacteria identified Cx Nom (Bld) CULTURE RESULTS STAPHYLOCOCCUS, COAGULASE NEGATIVE Staphylococcus, coagulase negative Not S. Lugdunensis Possible Collection Contamination STAPHYLOCOCCUS, COAGULASE NEGATIVE Staphylococcus, coagulase negative Not S. Lugdunensis Variant Possible Collection Contamination GRAM STAIN Gram positive cocci in clusters Abnormal [facility] Comment on above: Order Comment: *SIRS Criteria: [...] affected. Performed By: #### N UM #### [facility] ([facility]) [address] [place] [address] VIR Bacteria identified Cx Nom (Bld) CULTURE RESULTS NO GROWTH 5 DAYS Normal [facility] Comment on above: Order Comment: *SIRS Criteria: (must display 2 without other explanation)-Temperature < 36 or >38-Pulse >90-Resp rate >20-WBC less than 4K or greater than 12KRepeat blood cultures not needed:-To document that a blood culture is a contaminant when 1 of 2 bottles is positive for a common contaminant (already listed in [facility] with the culture result)-To document clearance of gram negative bacteremia in patients with suspected urinary source who are improving Performed By: #### N UM #### [facility] ([facility]) [address] [place] [address] VIR BLOOD GAS, ARTERIALon 2024 BASE,DEFICIT -8.0 mmol/L Low 0.0-2.0 [facility] Comment on above: Performed By: #### P INR #### [facility] ([facility]) [address] [place] [address] VIR HCO3 (Bld) [Moles/Vol] 16.8 mmol/L Low 22.0-26.0 [facility] Comment on above: Performed By: #### P INR #### [facility] ([facility]) [address] [place] [address] VIR Oxygen saturation in Blood 95.0 % Normal >90.0 [facility] Comment on above: Performed By: #### P INR #### [facility] ([facility]) [address] [place] [address] VIR PCO2 ARTERIAL 29.4 mmHg Low 35.0-45.0 [facility] Comment on above: Performed By: #### P INR #### [facility] ([facility]) [address] [place] [address] VIR PH ARTERIAL 7.364 Normal 7.350-7.45 0 [facility] Comment on above: Performed By: #### P INR #### [facility] ([facility]) [address] [place] [address] VIR PO2 ARTERIAL 78 mmHg Low 80-100 [facility] Comment on above: Performed By: #### P INR #### [facility] ([facility]) [address] [place] [address] VIR POC WILI'S TEST Pass Normal [facility] Comment on above: Performed By: #### P INR #### [facility] ([facility]) [address] [place] [address] VIR SAMPLE SITE L Rad Normal [facility] Comment on above: Performed By: #### P INR #### [facility] ([facility]) [address] [place] [address] VIR SAMPLE TYPE ARTERIAL Normal [facility] Comment on above: Performed By: #### P INR #### [facility] ([facility]) [address] [place] [address] VIR SOURCE OF OXYGEN Room Air Normal [facility] Comment on above: Performed By: #### P INR #### [facility] ([facility]) [address] [place] [address] VIR Basic Metabolic Panelon 05-0 Anion gap [Moles/Vol] 17 mmol/L High 5 - 15 mmol/L [facility] Calcium [Mass/Vol] 9.2 mg/dL 8.5 - 10. 5 mg/dL [facility] Chloride [Moles/Vol] 120 mmol/L High 98 - 10 9 mmol/L [facility] CO2 [Moles/Vol] 22 mmol/L 22 - 32 mmol/L [facility] Creatinine [Mass/Vol] 7.54 mg/dL High 0.40 - 1.00 mg/dL [facility] EGFR Non-Race Dependent 6 Low - PINF P [facility] Glucose [Mass/Vol] 107 mg/dL High 65 - 99 mg/dL [facility] Potassium [Moles/Vol] 4.5 mmol/L 3.5 - 5.0 mmol/L [facility] Sodium [Moles/Vol] 159 mmol/L High 134 - 146 mmol/L [facility] Urea nitrogen [Mass/Vol] 81 mg/dL High 5 - 23 mg/dL [facility] Bedside Glucose *Place/Obtai n serum glucose if >500 per glucometer.on 09-19-2024 Glucose [Mass/Vol] 110 mg/dL High 65 - 99 mg/dL [facility] Interpretation and review of laboratory results Abnormal [facility] Blood pathogens panel KELSIE+no n-probe (Pos bld culture)Ordered By: Dion Shipley on 09-19-2024 Interpretation and review of laboratory results Abnormal [facility] mecA/C gene PCR Detected Abnormal Not Detected [facility] Staphylococcus epidermidis PCR Detected Abnormal Not Detected [facility] CBC WITH AUTO DIFFERENTIALon 09-19-2024 BASOPHILS ABSOLUTE COUNT (10*3/UL) BY AUTOMATED COUNT 0.1 10*3/uL Normal [facility] Comment on above: Performed By: #### P INR #### [facility] ([facility]) [address] [place] [address] VIR BASOPHILS RELATIVE PERCENT BY AUTOMATED COUNT 0.8 % Normal [facility] Comment on above: Performed By: #### P INR #### [facility] ([facility]) [address] [place] [address] VIR CELLAVISION DIFFERENTIAL TYPE AUTOMATED DIFFERENTIAL Normal [facility] Comment on above: Performed By: #### P INR #### [facility] ([facility]) [address] [place] [address] VIR Eosinophils (Bld) [#/Vol] 0.3 10*3/uL Normal [facility] Comment on above: Performed By: #### P INR #### [facility] ([facility]) [address] [place] [address] VIR EOSINOPHILS RELATIVE PERCENT BY AUTOMATED COUNT 2.8 % Normal [facility] Comment on above: Performed By: #### P INR #### [facility] ([facility]) [address] [place] [address] VIR Erythrocyte distribution width (RBC) [Ratio] 15.6 % High 11.5-15 [facility] Comment on above: Performed By: #### P INR #### [facility] ([facility]) [address] [place] [address] VIR Hematocrit (Bld) [Volume fraction] 34.9 % Low 35-47 [facility] Comment on above: Performed By: #### P INR #### [facility] ([facility]) [address] [place] [address] VIR Hemoglobin (Bld) [Mass/Vol] 11.4 g/dL Low 11.7-15.5 [facility] Comment on above: Performed By: #### P INR #### [facility] ([facility]) [address] [place] [address] VIR LYMPHOCYTES ABSOLUTE COUNT (10*3/UL) BY AUTOMATED COUNT 0.7 10*3/uL Normal [facility] Comment on above: Performed By: #### P INR #### [facility] ([facility]) [address] [place] [address] VIR LYMPHOCYTES RELATIVE PERCENT BY AUTOMATED COUNT 7.9 % Normal [facility] Comment on above: Performed By: #### P INR #### [facility] ([facility]) [address] [place] [address] VIR MCH (RBC) [Entitic mass] 27.0 pg Normal 27-34 [facility] Comment on above: Performed By: #### P INR #### [facility] ([facility]) [address] [place] [address] VIR MCHC (RBC) [Mass/Vol] 32.8 g/dL Normal 32-36 [facility] Comment on above: Performed By: #### P INR #### [facility] ([facility]) [address] [place] [address] VIR MCV (RBC) [Entitic vol] 82 fL Normal 80-100 [facility] Comment on above: Performed By: #### P INR #### [facility] ([facility]) [address] [place] [address] VIR MONOCYTES ABSOLUTE COUNT (10*3/UL) BY AUTOMATED COUNT 0.8 10*3/uL Normal [facility] Comment on above: Performed By: #### P INR #### [facility] ([facility]) [address] [place] [address] VIR MONOCYTES RELATIVE PERCENT BY AUTOMATED COUNT 8.9 % Normal [facility] Comment on above: Performed By: #### P INR #### [facility] ([facility]) [address] [place] [address] VIR NEUTROPHILS ABSOLUTE COUNT BY AUTOMATED COUNT 7.3 10*3/uL Normal [facility] Comment on above: Performed By: #### P INR #### [facility] ([facility]) [address] [place] [address] VIR NEUTROPHILS RELATIVE PERCENT BY AUTOMATED COUNT 79.6 % Normal [facility] Comment on above: Performed By: #### P INR #### [facility] ([facility]) [address] [place] [address] VIR Platelet mean volume (Bld) [Entitic vol] 9.2 fL Normal 7-12 [facility] Comment on above: Performed By: #### P INR #### [facility] ([facility]) [address] [place] [address] VIR Platelets (Bld) [#/Vol] 189 10*3/uL Normal 150-450 [facility] Comment on above: Performed By: #### P INR #### [facility] ([facility]) [address] [place] [address] VIR RBC COUNT 4.23 X10E12/L Normal 3.8-5.2 [facility] Comment on above: Performed By: #### P INR #### [facility] ([facility]) [address] [place] [address] VIR WBC (Bld) [#/Vol] 9.2 10*3/uL Normal 4-11 [facility] Comment on above: Performed By: #### P INR #### [facility] ([facility]) [address] [place] [address] VIR BASOPHILS ABSOLUTE COUNT (10*3/UL) BY AUTOMATED COUNT 0.1 10*3/uL Normal [facility] Comment on above: Performed By: #### C BCA #### [facility] ([facility]) [address] [place] [address] VIR BASOPHILS RELATIVE PERCENT BY AUTOMATED COUNT 0.6 % Normal [facility] Comment on above: Performed By: #### C BCA #### [facility] ([facility]) [address] [place] [address] VIR CELLAVISION DIFFERENTIAL TYPE AUTOMATED DIFFERENTIAL Normal [facility] Comment on above: Performed By: #### C BCA #### [facility] ([facility]) [address] [place] [address] VIR Eosinophils (Bld) [#/Vol] 0.4 10*3/uL Normal [facility] Comment on above: Performed By: #### C BCA #### [facility] ([facility]) [address] [place] [address] VIR EOSINOPHILS RELATIVE PERCENT BY AUTOMATED COUNT 3.4 % Normal [facility] Comment on above: Performed By: #### C BCA #### [facility] ([facility]) [address] [place] [address] VIR Erythrocyte distribution width (RBC) [Ratio] 15.7 % High 11.5-15 [facility] Comment on above: Performed By: #### C BCA #### [facility] ([facility]) [address] [place] [address] VIR Hematocrit (Bld) [Volume fraction] 34.9 % Low 35-47 [facility] Comment on above: Performed By: #### C BCA #### [facility] ([facility]) [address] [place] [address] VIR Hemoglobin (Bld) [Mass/Vol] 11.5 g/dL Low 11.7-15.5 [facility] Comment on above: Performed By: #### C BCA #### [facility] ([facility]) [address] [place] [address] VIR LYMPHOCYTES ABSOLUTE COUNT (10*3/UL) BY AUTOMATED COUNT 0.8 10*3/uL Normal [facility] Comment on above: Performed By: #### C BCA #### [facility] ([facility]) [address] [place] [address] VIR LYMPHOCYTES RELATIVE PERCENT BY AUTOMATED COUNT 7.5 % Normal [facility] Comment on above: Performed By: #### C BCA #### [facility] ([facility]) [address] [place] [address] VIR MCH (RBC) [Entitic mass] 27.7 pg Normal 27-34 [facility] Comment on above: Performed By: #### C BCA #### [facility] ([facility]) [address] [place] [address] VIR MCHC (RBC) [Mass/Vol] 33.1 g/dL Normal 32-36 [facility] [place] [facility] Comment on above: Performed By: #### C BCA #### [facility] ([facility]) [address] [place] [address] VIR MCV (RBC) [Entitic vol] 84 fL Normal 80-100 P [facility] Comment on above: Performed By: #### C BCA #### [facility] ([facility]) [address] [place] [address] VIR MONOCYTES ABSOLUTE COUNT (10*3/UL) BY AUTOMATED COUNT 0.9 10*3/uL Normal [facility] Comment on above: Performed By: #### C BCA #### [facility] ([facility]) [address] [place] [address] VIR MONOCYTES RELATIVE PERCENT BY AUTOMATED COUNT 9.2 % Normal [facility] Comment on above: Performed By: #### C BCA #### [facility] ([facility]) [address] [place] [address] VIR NEUTROPHILS ABSOLUTE COUNT BY AUTOMATED COUNT 8.2 10*3/uL Normal [facility] Comment on above: Performed By: #### C BCA #### [facility] ([facility]) [address] [place] [address] VIR NEUTROPHILS RELATIVE PERCENT BY AUTOMATED COUNT 79.3 % Normal [facility] Comment on above: Performed By: #### C BCA #### [facility] ([facility]) [address] [place] [address] VIR Platelet mean volume (Bld) [Entitic vol] 9.2 fL Normal 7-12 [facility] Comment on above: Performed By: #### C BCA #### [facility] ([facility]) [address] [place] [address] VIR Platelets (Bld) [#/Vol] 199 10*3/uL Normal 150-450 [facility] Comment on above: Performed By: #### C BCA #### [facility] ([facility]) [address] [place] [address] VIR RBC COUNT 4.16 X10E12/L Normal 3.8-5.2 [facility] Comment on above: Performed By: #### C BCA #### [facility] ([facility]) [address] [place] [address] VIR WBC (Bld) [#/Vol] 10.3 10*3/uL Normal 4-11 [facility] Comment on above: Performed By: #### C BCA #### [facility] ([facility]) [address] [place] [address] VIR CBC auto differentialon 050 Basophils (Bld) [#/Vol] 0.1 10*3/uL [facility] Basophils/100 WBC (Bld) 0.8 % P [facility] Differential cell count method Nom (Bld) AUTOMATED DIFFERENTIAL [facility] Eosinophils (Bld) [#/Vol] 0.3 10*3/uL [facility] Eosinophils/100 WBC (Bld) 2.8 % [facility] Erythrocyte distribution width (RBC) [Ratio] 15.6 % High 11.5 - 15 % [facility] Hematocrit (Bld) [Volume fraction] 34.9 % Low 35 - 47 % [facility] Hemoglobin (Bld) [Mass/Vol] 11.4 g/dL Low 11.7 - 15.5 g/dL [facility] Interpretation and review of laboratory results Abnormal [facility] Lymphocytes (Bld) [#/Vol] 0.7 10*3/uL [facility] Lymphocytes/100 WBC (Bld) 7.9 % [facility] MCH (RBC) [Entitic mass] 27 pg 27 - 34 pg [facility] MCHC (RBC) [Mass/Vol] 32.8 g/dL 32 - 3 6 g/dL [facility] MCV (RBC) [Entitic vol] 82 fL 80 - 100 fL [facility] Monocytes (Bld) [#/Vol] 0.8 10*3/uL [facility] Monocytes/100 WBC (Bld) 8.9 % P [facility] Neutrophils (Bld) [#/Vol] 7.3 10*3/uL [facility] Neutrophils/100 WBC (Bld) 79.6 % [facility] Platelet mean volume (Bld) [Entitic vol] 9.2 fL 7 - 12 fL [facility] Platelets (Bld) [#/Vol] 189 10*3/uL [facility] RBC (Bld) [#/Vol] 4.23 10*6/uL [facility] WBC LM Ql (Sput) 9.2 [facility] Basophils (Bld) [#/Vol] 0.1 10*3/uL [facility] Basophils/100 WBC (Bld) 0.6 % P [facility] Differential cell count method Nom (Bld) AUTOMATED DIFFERENTIAL [facility] Eosinophils (Bld) [#/Vol] 0.4 10*3/uL [facility] Eosinophils/100 WBC (Bld) 3.4 % [facility] Erythrocyte distribution width (RBC) [Ratio] 15.7 % High 11.5 - 15 % [facility] Hematocrit (Bld) [Volume fraction] 34.9 % Low 35 - 47 % [facility] Hemoglobin (Bld) [Mass/Vol] 11.5 g/dL Low 11.7 - 15.5 g/dL [facility] Interpretation and review of laboratory results Abnormal [facility] Lymphocytes (Bld) [#/Vol] 0.8 10*3/uL [facility] Lymphocytes/100 WBC (Bld) 7.5 % [facility] MCH (RBC) [Entitic mass] 27.7 pg 27 - 34 pg [facility] MCHC (RBC) [Mass/Vol] 33.1 g/dL 32 - 3 6 g/dL [facility] MCV (RBC) [Entitic vol] 84 fL 80 - 100 fL [facility] Monocytes (Bld) [#/Vol] 0.9 10*3/uL [facility] Monocytes/100 WBC (Bld) 9.2 % P [facility] Neutrophils (Bld) [#/Vol] 8.2 10*3/uL [facility] Neutrophils/100 WBC (Bld) 79.3 % [facility] Platelet mean volume (Bld) [Entitic vol] 9.2 fL 7 - 12 fL [facility] Platelets (Bld) [#/Vol] 199 10*3/uL [facility] RBC (Bld) [#/Vol] 4.16 10*6/uL [facility] WBC LM Ql (Sput) 10.3 [facility] CK TOTALon 09-19-2024 CPK 18 U/L Low 24-170 [facility] Comment on above: Performed By: #### P TT #### [facility] ([facility]) [address] [place] [address] VIR CPK 18 U/L Low 24-170 [facility] Comment on above: Performed By: #### C PK #### [facility] ([facility]) [address] [place] [address] VIR CK Totalon 09-19-2024 CK [Catalytic activity/Vol] 18 U/L Low 24 - 170 U/L [facility] CK [Catalytic activity/Vol] 18 U/L Low 24 - 170 U/L [facility] Interpretation and review of laboratory results Abnormal [facility] COMPLEMENT PROFILE (C3 AND C 4)on 09-19-2024 COMPLEMENT C3 196 mg/dL High 86-184 [facility] Comment on above: Performed By: #### P TT #### [facility] ([facility]) [address] [place] [address] VIR COMPLEMENT C4 42 mg/dL Normal 16-47 [facility] Comment on above: Performed By: #### P TT #### [facility] ([facility]) [address] [place] [address] VIR COMPREHENSIVE METABOLIC PANE Antoni 09-19-2024 Albumin [Mass/Vol] 3.4 g/dL Normal 3.2-5.3 [facility] Comment on above: Performed By: #### C MP #### [facility] ([facility]) [address] [place] [address] VIR ALP [Catalytic activity/Vol] 73 U/L Normal 39-130 [facility] Comment on above: Performed By: #### C MP #### [facility] ([facility]) [address] [place] [address] VIR ALT [Catalytic activity/Vol] 4 U/L Normal <=31 [facility] Comment on above: Performed By: #### C MP #### [facility] ([facility]) [address] [place] [address] VIR Anion gap [Moles/Vol] 17 mmol/L High 5-15 [facility] Comment on above: Performed By: #### C MP #### [facility] ([facility]) [address] [place] [address] VIR AST [Catalytic activity/Vol] 8 U/L Normal <=41 [facility] Comment on above: Performed By: #### C MP #### [facility] ([facility]) [address] [place] [address] VIR Bilirubin [Mass/Vol] 0.4 mg/dL Normal 0.3-1.2 [facility] Comment on above: Performed By: #### C MP #### [facility] ([facility]) [address] [place] [address] VIR Calcium [Mass/Vol] 9.3 mg/dL Normal 8.5-10.5 [facility] Comment on above: Performed By: #### C MP #### [facility] ([facility]) [address] [place] [address] VIR Chloride [Moles/Vol] 120 mmol/L High 98-109 [facility] Comment on above: Performed By: #### C MP #### [facility] ([facility]) [address] [place] [address] VIR CO2 [Moles/Vol] 14 mmol/L Low 22-32 [facility] Comment on above: Performed By: #### C MP #### [facility] ([facility]) [address] [place] [address] VIR Creatinine [Mass/Vol] 9.65 mg/dL High 0.40-1.00 [facility] Comment on above: Result Comment: METH OD TRACEABLE TO IDMS STANDARD Performed By: #### C MP #### [facility] ([facility]) [address] [place] [address] VIR GFR/1.73 sq M.predicted among non-blacks MDRD (S/P/Bld) [Vol rate/Area] 4 mL/min/{1.73_m2} Low >=60 [facility] Comment on above: Result Comment: Repo rted eGFR is based on the CKD-EPI 2020 equation that does not use a race coefficient. Performed By: #### C MP #### [facility] ([facility]) [address] [place] [address] VIR Glucose [Mass/Vol] 103 mg/dL High 65-99 [facility] Comment on above: Performed By: #### C MP #### [facility] ([facility]) [address] [place] [address] VIR Potassium [Moles/Vol] 4.6 mmol/L Normal 3.5-5.0 [facility] Comment on above: Performed By: #### C MP #### [facility] ([facility]) [address] [place] [address] VIR Protein [Mass/Vol] 6.8 g/dL Normal 6.0-8.0 [facility] Comment on above: Performed By: #### C MP #### [facility] ([facility]) [address] [place] [address] VIR Sodium [Moles/Vol] 151 mmol/L High 134-146 [facility] Comment on above: Performed By: #### C MP #### [facility] ([facility]) [address] [place] [address] VIR Urea nitrogen [Mass/Vol] 91 mg/dL High 5-23 [facility] Comment on above: Performed By: #### C JENNIFER #### [facility] ([facility]) [address] [place] [address] VIR Complement profile (C3 AND C 4)on 09-19-2024 Complement C3 [Mass/Vol] 196 mg/dL High 86 - 184 mg/dL [facility] Complement C4 [Mass/Vol] 42 mg/dL 16 - 47 mg/dL [facility] Comprehensive metabolic pane antoni 09-19-2024 Albumin [Mass/Vol] 3.4 g/dL 3.2 - 5.3 g/dL [facility] ALP [Catalytic activity/Vol] 73 U/L 39 - 130 U/L [facility] ALT No additional P-5'-P [Catalytic activity/Vol] 4 U/L NINF - 31 U/L [facility] Anion gap [Moles/Vol] 17 mmol/L High 5 - 15 mmol/L [facility] AST [Catalytic activity/Vol] 8 U/L NINF - 41 U/L [facility] Bilirubin [Mass/Vol] 0.4 mg/dL 0.3 - 1 .2 mg/dL [facility] Calcium [Mass/Vol] 9.3 mg/dL 8.5 - 10. 5 mg/dL [facility] Chloride [Moles/Vol] 120 mmol/L High 98 - 10 9 mmol/L [facility] CO2 [Moles/Vol] 14 mmol/L Low 22 - 32 mmol/L [facility] Creatinine [Mass/Vol] 9.65 mg/dL High 0.40 - 1.00 mg/dL [facility] EGFR Non-Race Dependent 4 Low - PINF [facility] Glucose [Mass/Vol] 103 mg/dL High 65 - 99 mg/dL [facility] Interpretation and review of laboratory results Abnormal [facility] Potassium [Moles/Vol] 4.6 mmol/L 3.5 - 5.0 mmol/L [facility] Protein [Mass/Vol] 6.8 g/dL 6.0 - 8.0 g/dL [facility] Sodium [Moles/Vol] 151 mmol/L High 134 - 146 mmol/L [facility] Urea nitrogen [Mass/Vol] 91 mg/dL High 5 - 23 mg/dL [facility] ECG 12 leadOrdered By: Charley Cohen on 09-19-2024 [facility] ELECTROLYTE PANELon 09-20-19 25 Anion gap [Moles/Vol] 11 mmol/L Normal 5-15 [facility] Comment on above: Performed By: #### N UM #### [facility] ([facility]) [address] [place] [address] VIR Chloride [Moles/Vol] 119 mmol/L High 98-109 [facility] Comment on above: Performed By: #### N UM #### [facility] ([facility]) [address] [place] [address] VIR CO2 [Moles/Vol] 24 mmol/L Normal 22-32 [facility] Comment on above: Performed By: #### N UM #### [facility] ([facility]) [address] [place] [address] VIR Potassium [Moles/Vol] 4.3 mmol/L Normal 3.5-5.0 [facility] Comment on above: Performed By: #### N UM #### [facility] ([facility]) [address] [place] [address] VIR Sodium [Moles/Vol] 154 mmol/L High 134-146 [facility] Comment on above: Performed By: #### N UM #### [facility] ([facility]) [address] [place] [address] VIR Anion gap [Moles/Vol] 13 mmol/L Normal 5-15 [facility] Comment on above: Performed By: #### N UM #### [facility] ([facility]) [address] [place] [address] VIR Chloride [Moles/Vol] 118 mmol/L High 98-109 [facility] Comment on above: Performed By: #### N UM #### [facility] ([facility]) [address] [place] [address] VIR CO2 [Moles/Vol] 21 mmol/L Low 22-32 [facility] Comment on above: Performed By: #### N UM #### [facility] ([facility]) [address] [place] [address] VIR Potassium [Moles/Vol] 4.5 mmol/L Normal 3.5-5.0 [facility] Comment on above: Performed By: #### N UM #### [facility] ([facility]) [address] [place] [address] VIR Sodium [Moles/Vol] 152 mmol/L High 134-146 [facility] Comment on above: Performed By: #### N UM #### [facility] ([facility]) [address] [place] [address] VIR Anion gap [Moles/Vol] 15 mmol/L Normal 5-15 [facility] Comment on above: Performed By: #### P INR #### [facility] ([facility]) [address] [place] [address] VIR Chloride [Moles/Vol] 119 mmol/L High 98-109 [facility] Comment on above: Performed By: #### P INR #### [facility] ([facility]) [address] [place] [address] VIR CO2 [Moles/Vol] 22 mmol/L Normal 22-32 [facility] Comment on above: Performed By: #### P INR #### [facility] ([facility]) [address] [place] [address] VIR Potassium [Moles/Vol] 4.3 mmol/L Normal 3.5-5.0 [facility] Comment on above: Performed By: #### P INR #### [facility] ([facility]) [address] [place] [address] VIR Sodium [Moles/Vol] 156 mmol/L High 134-146 [facility] Comment on above: Performed By: #### P INR #### [facility] ([facility]) [address] [place] [address] VIR Electrolyte panelon 09-20-19 25 Anion gap [Moles/Vol] 11 mmol/L 5 - 15 mmol/L [facility] Chloride [Moles/Vol] 119 mmol/L High 98 - 10 9 mmol/L [facility] CO2 [Moles/Vol] 24 mmol/L 22 - 32 mmol/L [facility] Interpretation and review of laboratory results Abnormal [facility] Potassium [Moles/Vol] 4.3 mmol/L 3.5 - 5.0 mmol/L [facility] Sodium [Moles/Vol] 154 mmol/L High 134 - 146 mmol/L [facility] Anion gap [Moles/Vol] 13 mmol/L 5 - 15 mmol/L [facility] Chloride [Moles/Vol] 118 mmol/L High 98 - 10 9 mmol/L [facility] CO2 [Moles/Vol] 21 mmol/L Low 22 - 32 mmol/L [facility] Interpretation and review of laboratory results Abnormal [facility] Potassium [Moles/Vol] 4.5 mmol/L 3.5 - 5.0 mmol/L [facility] Sodium [Moles/Vol] 152 mmol/L High 134 - 146 mmol/L [facility] Anion gap [Moles/Vol] 15 mmol/L 5 - 15 mmol/L [facility] Chloride [Moles/Vol] 119 mmol/L High 98 - 10 9 mmol/L [facility] CO2 [Moles/Vol] 22 mmol/L 22 - 32 mmol/L [facility] Interpretation and review of laboratory results Abnormal [facility] Potassium [Moles/Vol] 4.3 mmol/L 3.5 - 5.0 mmol/L [facility] Sodium [Moles/Vol] 156 mmol/L High 134 - 146 mmol/L [facility] Extra Urineon 09-19-2024 Extra Tube Auto Resulted [facility] FERRITINon 09-19-2024 Ferritin [Mass/Vol] 130 ng/mL Normal 11-307 [facility] Comment on above: Performed By: #### P TT #### [facility] ([facility]) [address] [place] [address] VIR FOLATEon 09-19-2024 FOLIC ACID 13.1 ng/mL Normal >5.8 [facility] Comment on above: Performed By: #### P TT #### [facility] ([facility]) [address] [place] [address] VIR Ferritinon 09-19-2024 Ferritin [Mass/Vol] 130 ng/mL 11 - 307 ng/mL [facility] Interpretation and review of laboratory results Normal [facility] Folateon 09-19-2024 Folate [Mass/Vol] 13.1 ng/mL 5.8 - PINF ng/mL [facility] Interpretation and review of laboratory results Normal [facility] GLOMERULAR BASEMENT MEMBRANE IGG ABon 09-19-2024 GBM IGG AB <^0.2 Normal <1.0 [facility] Comment on above: Performed By: #### L ACTS #### [facility] ([facility]) [address] [place] [address] VIR Gas panel (BldA)on 5 Arterial patency Wrist artery --pre arterial puncture Pass [facility] Base deficit (Bld) [Moles/Vol] -8 mmol/L Low 0.0 - 2.0 mmol/L [facility] CO2 (Bld) [Partial pressure] 29.4 mm[Hg] Low [facility] HCO3 (Bld) [Moles/Vol] 16.8 mmol/L Low 22.0 - 26.0 mmol/L [facility] Interpretation and review of laboratory results Abnormal [facility] Oxygen (Bld) [Partial pressure] 78 mm[Hg] Low [facility] Oxygen therapy source and amount [CARE] Room Air [facility] pH (Bld) 7.364 [pH] 7.350 - 7.450 [facility] Specimen site Narrative Verena Saavedra [facility] Specimen type Nom (Spec) ARTERIAL [facility] HEMOGLOBIN A1Con 09-19-2024 Glucose [Mass/Vol] 108 mg/dL Normal [facility] Comment on above: Performed By: #### P INR #### [facility] ([facility]) [address] [place] [address] VIR HbA1c (Bld) [Mass fraction] 5.4 % Normal 4.4-5.6 [facility] Comment on above: Result Comment: ADA Guidelines Result HgbA1c Normal : less than 5.7 % Prediabetes : 5.7 % to 6.4 % Diabetes : > 6.4 % Use with caution in patients with abnormal hemoglobin variants as the half-life of red blood cells and in vivo glycation rates are affected. Performed By: #### P INR #### [facility] ([facility]) [address] [place] [address] VIR Hemoglobin A1con 09-19-2024 Average glucose Estimated from glycated hemoglobin (Bld) [Mass/Vol] 108 mg/dL [facility] HbA1c (Bld) [Mass fraction] 5.4 % 4.4 - 5.6 % [facility] IRON AND TIBCon 09-19-2024 Iron [Mass/Vol] 56 ug/dL Normal 50-170 [facility] Comment on above: Performed By: #### P TT #### [facility] ([facility]) [address] [place] [address] VIR IRON BINDING 309 ug/dL Normal 250-425 [facility] Comment on above: Performed By: #### P TT #### [facility] ([facility]) [address] [place] [address] VIR IRON SATURATION 18 % SATURATION Normal 15-50 [facility] Comment on above: Performed By: #### P TT #### [facility] ([facility]) [address] [place] [address] VIR Transferrin [Mass/Vol] 221 mg/dL Normal 168-336 [facility] Comment on above: Performed By: #### P TT #### [facility] ([facility]) [address] [place] [address] VIR Iron and TIBCon 09-19-2024 Interpretation and review of laboratory results Normal [facility] Iron [Mass/Vol] 56 ug/dL 50 - 170 ug/dL [facility] Iron binding capacity [Mass/Vol] 309 ug/dL 250 - 425 ug/dL [facility] Iron saturation [Mass fraction] 18 [facility] Transferrin [Mass or moles/Vol] 221 mg/dL 168 - 336 mg/dL [facility] LACTATE W/ REFLEXon 09-20-19 25 LACTATE W/REFLEX 0.7 mmol/L Normal 0.4-2.0 [facility] Comment on above: Order Comment: Resul t did not trigger repeat Lactate, re-order if needed. Performed By: #### L ACTS #### [facility] ([facility]) [address] [place] [address] VIR Laboratory - Chemistry and C hemistry - challengeon 09-19-2024 Creatinine (U) [Mass/Vol] 83.54 mg/dL [facility] Lactate w/ Reflexon 09-20-19 25 Interpretation and review of laboratory results Normal [facility] Lactate (P nadine) [Moles/Vol] 0.7 mmol/L 0.4 - 2.0 mmol/L [facility] MAGNESIUMon 09-19-2024 Magnesium [Mass/Vol] 2.4 mg/dL Normal 1.8-2.6 [facility] Comment on above: Performed By: #### P INR #### [facility] ([facility]) [address] [place] [address] VIR MYELOPEROXIDASE ABon 025 MYELOPEROXIDASE AB <^0.2 Normal <1.0 [facility] Comment on above: Performed By: #### L ACTS #### [facility] ([facility]) [address] [place] [address] VIR MYOGLOBIN, SERUMon 5 SERUM MYOGLOBIN 33.4 ng/mL Normal 14.3-65.8 [facility] Comment on above: Performed By: #### P INR #### [facility] ([facility]) [address] [place] [address] VIR Magnesiumon 09-19-2024 Magnesium [Mass/Vol] 2.4 mg/dL 1.8 - 2 .6 mg/dL [facility] Myoglobin, serumon Interpretation and review of laboratory results Normal [facility] Myoglobin [Mass/Vol] 33.4 ng/mL 14.3 - 65.8 ng/mL [facility] No Panel Informationon 09-19 Interpretation and review of laboratory results Normal [facility] Interpretation and review of laboratory results Abnormal [facility] PHOSPHORUSon 09-19-2024 Phosphate [Mass/Vol] 5.8 mg/dL High 2.4-4.9 [facility] Comment on above: Performed By: #### P INR #### [facility] ([facility]) [address] [place] [address] VIR POCT NURSING URINE MACROSCOP IC UAon 09-19-2024 BILIRUBIN SORIN Negative Normal Negative [facility] Comment on above: Performed By: #### N UM #### [facility] ([facility]) [address] [place] [address] VIR BLOOD/HGB SORIN Large Abnormal Negative [facility] Comment on above: Performed By: #### N UM #### [facility] ([facility]) [address] [place] [address] VIR GLUCOSE SORIN Negative Normal Negative [facility] Comment on above: Performed By: #### N UM #### [facility] ([facility]) [address] [place] [address] VIR KETONES SORIN Negative Normal Negative [facility] Comment on above: Performed By: #### N UM #### [facility] ([facility]) [address] [place] [address] VIR LEUKOCYTE ESTERASE SORIN Negative Normal Negative [facility] Comment on above: Performed By: #### N UM #### [facility] ([facility]) [address] [place] [address] VIR NITRITE SORIN Negative Normal Negative [facility] Comment on above: Performed By: #### N UM #### [facility] ([facility]) [address] [place] [address] VIR PH SORIN 5.5 Normal 5.0, 6.0, 6.5, 7.0, 7.5, 8.0, 8.5, 5.5 [facility] Comment on above: Performed By: #### N UM #### [facility] ([facility]) [address] [place] [address] VIR PROTEIN SORIN 100 mg/dL Abnormal Negative [facility] Comment on above: Performed By: #### N UM #### [facility] ([facility]) [address] [place] [address] VIR SPECIFIC GRAVITY SORIN 1.020 Normal 1.010, 1.015, 1.020, 1.025 [facility] Comment on above: Performed By: #### N UM #### [facility] ([facility]) [address] [place] [address] VIR UROBILINOGEN SORIN 0.2 E.U./dL Normal 0.2 E.U./dL, 1.0 E.U./dL [facility] Comment on above: Performed By: #### N UM #### [facility] ([facility]) [address] [place] [address] VIR POCT Nursing Urine Macroscop ic UAon 09-19-2024 Bilirubin Ql (U) Negative Negative [facility] Glucose [Mass/Vol] Negative Negative [facility] Hemoglobin Ql (U) Large Abnormal Negative [facility] Interpretation and review of laboratory results Abnormal [facility] Ketones (U) [Mass/Vol] Negative Negative [facility] Leukocyte esterase Test strip Ql (U) Negative Negative [facility] Nitrite Ql (U) Negative Negative [facility] pH (U) 5.5 [pH] 5.0, 6.0, 6.5, 7.0, 7.5, 8.0, 8.5, 5.5 [facility] Protein Ql (U) 100 mg/dL Abnormal Negative [facility] Specific gravity (U) [Rel density] 1.020 1.010, 1.015, 1.020, 1.025 [facility] Urobilinogen Qn (U) [id number] {Mirza'U}/dL 0.2 E.U./dL, 1.0 E.U./dL [facility] PROCALCITONINon 09-19-2024 PROCALCITONIN 0.12 ng/mL High <0.05 [facility] Comment on above: Order Comment: <0.50 ng/mL - Low risk of severe sepsis and/or septic shock.<2.00 ng/mL - Recommend retesting within 6-24 hours.>2.00 ng/mL - High risk of sepsis and/or septic shock. Performed By: #### P TT #### [facility] ([facility]) [address] [place] [address] VIR PROTEIN CREAT RATIOon 2024 U/PRO/RANCH HELPER RATIO CALC 1.62 High <=0.20 [facility] Comment on above: Order Comment: Nephr otic Syndrome is associated with ratios >3.5 Performed By: #### P INR #### [facility] ([facility]) [address] [place] [address] VIR URINE PROTEIN, RANDOM (MG/L) 1350 mg/L High <120 [facility] Comment on above: Order Comment: Nephr otic Syndrome is associated with ratios >3.5 Performed By: #### P INR #### [facility] ([facility]) [address] [place] [address] VIR PROTEINASE 3 AB PR3on 2024 PROTEINASE 3 IGG AB <^0.2 Normal <1.0 [facility] Comment on above: Performed By: #### L ACTS #### [facility] ([facility]) [address] [place] [address] VIR PROTIME AND INRon 09-19-2024 INR 1.2 Normal 0.9-1.2 [facility] Comment on above: Performed By: #### P INR #### [facility] ([facility]) [address] [place] [address] VIR PT Coag (PPP) [Time] 14.0 s High 9.8-13.2 [facility] Comment on above: Performed By: #### P INR #### [facility] ([facility]) [address] [address] VIR Phosphoruson 09-19-2024 Phosphate [Mass/Vol] 5.8 mg/dL High 2.4 - 4 .9 mg/dL [facility] Procalcitoninon 09-19-2024 Procalcitonin IA [Mass/Vol] 0.12 ng/mL High NINF - 0.05 ng/mL [facility] Protein creat ratioon 2024 Interpretation and review of laboratory results Abnormal [facility] Protein (U) [Mass/Vol] 1350 mg/L High NINF - 120 mg/L [facility] Protein/Creatinine (U) [Ratio] 1.62 High NINF - 0.20 [facility] Protime & INRon 09-19-2024 INR Coag (Platelet poor plasma or blood) [Relative time] 1.2 0.9 - 1.2 [facility] Interpretation and review of laboratory results Abnormal [facility] PT Coag (PPP) [Time] 14 s High [facility] SODIUM, URINE, RANDOMon Sodium (U) [Moles/Vol] 69 mmol/L Normal [facility] Comment on above: Performed By: #### U LUDMILA #### [facility] ([facility]) [address] [place] [address] VIR Sodium, urine, randomon 0 Sodium (U) [Moles/Vol] 69 mmol/L [facility] THYROID PROFILE INCLUDES TSH FT4on 09-19-2024 Free T4 [Mass/Vol] 0.86 ng/dL Normal 0.61-1.60 [facility] Comment on above: Performed By: #### P TT #### [facility] ([facility]) [address] [place] [address] VIR TSH 2.80 uIU/mL Normal 0.49-4.67 [facility] Comment on above: Performed By: #### P TT #### [facility] ([facility]) [address] [place] [address] VIR TROP I, HIGH SENSITIVITY 1 H OURon 09-19-2024 TROPONIN I, HIGH SENSITIVITY 10 ng/L Normal <16 [facility] Comment on above: Performed By: #### T NIHS1 #### [facility] ([facility]) [address] [place] [address] VIR TROPONIN I, HIGH SENSITIVITY 0 HOURon 09-19-2024 TROPONIN I, HIGH SENSITIVITY 11 ng/L Normal <16 [facility] Comment on above: Performed By: #### P INR #### [facility] ([facility]) [address] [place] [address] VIR Thyroid profile includes TSH FT4on 09-19-2024 Free T4 [Mass/Vol] 0.86 ng/dL 0.61 - 1.60 ng/dL [facility] TSH Qn 2.8 m[IU]/L [facility] Troponin I, High Sensitivity 0 Houron 09-19-2024 Interpretation and review of laboratory results Normal [facility] Troponin I.cardiac High sensitivity method [Mass/Vol] 11 ng/L NINF - 16 ng/L [facility] Troponin I, High Sensitivity 1 Houron 09-19-2024 Interpretation and review of laboratory results Normal [facility] Troponin I.cardiac High sensitivity method [Mass/Vol] 10 ng/L NINF - 16 ng/L [facility] URINALYSISon 09-19-2024 Bilirubin Ql (U) Negative Normal Negative [facility] Comment on above: Order Comment: Urine received without preservative. Delays in transport may affect results. Interpret with caution. A clinical correlation is recommended. Performed By: #### P TT #### [facility] ([facility]) [address] [place] [address] VIR BLOOD/HGB Moderate Abnormal Negative [facility] Comment on above: Order Comment: Urine received without preservative. Delays in transport may affect results. Interpret with caution. A clinical correlation is recommended. Performed By: #### P TT #### [facility] ([facility]) [address] [place] [address] VIR Color (U) Colorless Normal Yellow, Colorless [facility] Comment on above: Order Comment: Urine received without preservative. Delays in transport may affect results. Interpret with caution. A clinical correlation is recommended. Performed By: #### P TT #### [facility] ([facility]) [address] [place] [address] VIR Glucose Ql (U) Negative Normal Negative [facility] Comment on above: Order Comment: Urine received without preservative. Delays in transport may affect results. Interpret with caution. A clinical correlation is recommended. Performed By: #### P TT #### [facility] ([facility]) [address] [place] [address] VIR Ketones Ql (U) Negative Normal Negative [facility] Comment on above: Order Comment: Urine received without preservative. Delays in transport may affect results. Interpret with caution. A clinical correlation is recommended. Performed By: #### P TT #### [facility] ([facility]) [address] [place] [address] VIR Leukocyte esterase Test strip Ql (U) Small Abnormal Negative [facility] Comment on above: Order Comment: Urine received without preservative. Delays in transport may affect results. Interpret with caution. A clinical correlation is recommended. Performed By: #### P TT #### [facility] ([facility]) [address] [place] [address] VIR MUCOUS Present Abnormal None [facility] Comment on above: Order Comment: Urine received without preservative. Delays in transport may affect results. Interpret with caution. A clinical correlation is recommended. Performed By: #### P TT #### [facility] ([facility]) [address] [place] [address] VIR Nitrite Ql (U) Negative Normal Negative [facility] Comment on above: Order Comment: Urine received without preservative. Delays in transport may affect results. Interpret with caution. A clinical correlation is recommended. Performed By: #### P TT #### [facility] ([facility]) [address] [place] [address] VIR PH,URINE 5.5 Normal 5.0-8.5 [facility] Comment on above: Order Comment: Urine received without preservative. Delays in transport may affect results. Interpret with caution. A clinical correlation is recommended. Performed By: #### P TT #### [facility] ([facility]) [address] [place] [address] VIR Protein Ql (U) 70 mg/dL Abnormal Negative [facility] Comment on above: Order Comment: Urine received without preservative. Delays in transport may affect results. Interpret with caution. A clinical correlation is recommended. Performed By: #### P TT #### [facility] ([facility]) [address] [place] [address] VIR R.B.CELLS 17 High 0-5 [facility] Comment on above: Order Comment: Urine received without preservative. Delays in transport may affect results. Interpret with caution. A clinical correlation is recommended. Performed By: #### P TT #### [facility] ([facility]) [address] [place] [address] VIR Specific gravity (U) [Rel density] 1.013 Normal 1.003-1.03 5 [facility] Comment on above: Order Comment: Urine received without preservative. Delays in transport may affect results. Interpret with caution. A clinical correlation is recommended. Performed By: #### P TT #### [facility] ([facility]) [address] [place] [address] VIR SQUAMOUS EPITHELIUM 1 Normal 0-5 [facility] Comment on above: Order Comment: Urine received without preservative. Delays in transport may affect results. Interpret with caution. A clinical correlation is recommended. Performed By: #### P TT #### [facility] ([facility]) [address] [place] [address] VIR TURBIDITY Hazy Abnormal Clear [facility] Comment on above: Order Comment: Urine received without preservative. Delays in transport may affect results. Interpret with caution. A clinical correlation is recommended. Performed By: #### P TT #### [facility] ([facility]) [address] [place] [address] VIR UROBILINOGEN <1.1 eu/dL Normal <1.1 eu/dL [facility] Comment on above: Order Comment: Urine received without preservative. Delays in transport may affect results. Interpret with caution. A clinical correlation is recommended. Performed By: #### P TT #### [facility] ([facility]) [address] [place] [address] VIR W.B.CELLS 39 High 0-5 [facility] Comment on above: Order Comment: Urine received without preservative. Delays in transport may affect results. Interpret with caution. A clinical correlation is recommended. Performed By: #### P TT #### [facility] ([facility]) [address] [place] [address] VIR URINE CREATININE,RANDOMon URINE CREATININE,RDM 83.54 mg/dL Normal [facility] Comment on above: Performed By: #### P INR #### [facility] ([facility]) [address] [place] [address] VIR Order Comment: Nephr otic Syndrome is [...] Varner MD on 09/19/2024 6:46 AM Normal [facility] Retroperitoneumon 025 SECTRAPACS [facility] Radiology Study observation (narrative) [facility] RetroperitoneumOrdered By : Mao Varner on 09-19-2024 [facility] Work Phone: UrinalysisOrdered By: Aayush Ewing on 09-19-2024 Bilirubin Ql (U) Negative Negative [facility] Color (U) Colorless Yellow, Colorless [facility] Epithelial cells Auto (Urine sed) [#/Area] 1 0 - 5 [facility] Glucose (U) [Mass/Vol] Negative Negative [facility] Hemoglobin Auto test strip Ql (U) Moderate Abnormal Negative [facility] Interpretation and review of laboratory results Abnormal [facility] Ketones (U) [Mass/Vol] Negative Negative [facility] Leukocyte esterase Auto test strip Ql (U) Small Abnormal Negative [facility] Mucus Ql (Urine sed) Present Abnormal None [facility] Nitrite Auto test strip Ql (U) Negative Negative [facility] pH (U) 5.5 [pH] 5.0 - 8.5 [facility] Protein (U) [Mass/Vol] 70 mg/dL Abnormal Negative Pr [facility] RBC Auto (Urine sed) [#/Area] 17 High 0 - 5 [facility] Specific gravity Refractometry automated (U) [Rel density] 1.013 1.003 - 1.035 [facility] Turbidity Ql (U) Hazy Abnormal Clear [facility] Urobilinogen Qn (U) {Mirza'U}/dL <1.1 eu/dL P [facility] WBC Auto (Urine sed) [#/Area] 39 High 0 - 5 [facility] VITAMIN B12on 09-19-2024 Cobalamin (Vitamin B12) [Mass/Vol] 517 pg/mL Normal 180-914 [facility] Comment on above: Performed By: #### P TT #### [facility] (TT) [address] [place] [address] VIR Vitamin B12on 09-19-2024 Cobalamin (Vitamin B12) [Mass/Vol] 517 pg/mL 180 - 914 pg/mL [facility] Interpretation and review of laboratory results Normal [facility] ALL CBC WITH AUTO DIFFon BASOPHILS ABSOLUTE AUTO 0.1 [facility] Basophils/100 WBC (Bld) 0.7 % 0.2 - 2.0 % [facility] Eosinophils/100 WBC (Bld) 2.3 % 0.9 - 7.0 % [facility] Erythrocyte distribution width (RBC) [Ratio] 14.9 % 11.0 - 15.0 % [facility] Hematocrit (Bld) [Volume fraction] 37.9 % 36.0 - 48.0 % [facility] Hemoglobin (Bld) [Mass/Vol] 11.7 g/dL Low 12.0 - 16.0 g/dL [facility] IMMATURE GRANULOCYTES ABS AUTO 0.05 High [facility] Immature granulocytes/100 WBC (Bld) 0.4 % 0.0 - 0.5 % [facility] Interpretation and review of laboratory results Abnormal [facility] LYMPHOCYTES ABSOLUTE AUTO 0.8 Low [facility] Lymphocytes/100 WBC (Bld) 6.3 % Low 20.5 - 60.0 % [facility] MCH (RBC) [Entitic mass] 27.1 pg 26. 7 - 34.0 pg [facility] MCHC (RBC) [Mass/Vol] 30.9 g/dL 29.9 - 35.2 g/dL [facility] MCV (RBC) [Entitic vol] 87.7 fL 81.0 - 99.0 fL [facility] MONOCYTES ABSOLUTE AUTO 1 High N [facility] Monocytes/100 WBC (Bld) 7.5 % 1.7 - 12.0 % [facility] NEUTROPHILS ABSOLUTE AUTO 10.7 High [facility] Neutrophils/100 WBC (Bld) 82.8 % High 43.0 - 75.0 % [facility] Platelet mean volume (Bld) [Entitic vol] 11.5 fL 9.5 - 13.5 fL [facility] TBH EO # 0.3 [facility] TBH PLT 218 [facility] RBC 4.32 [facility] WBC 12.9 High [facility] CBC AND AUTO DIFFon 09-02-19 25 ABSOLUTE BASOPHIL 0.1 X10E9/L Normal 0.0-0.2 [facility] Comment on above: Performed By: #### C BCA, CMP, 2157-6, 98809-7, 72409-1, 66083-8, PINR, 31677-7, 2639-3 #### [facility] ([id number]) [address] [place] [address] ABSOLUTE NEUTROPHIL 7.5 X10E9/L High 1.5-6.6 [facility] Comment on above: Performed By: #### C BCA, CMP, 2156-6, 29347-2, 84715-6, 06327-0, PINR, 80282-3, 2639-3 #### [facility] ([id number]) [address] [place] [address] Basophils/100 WBC (Bld) 0.7 % Normal [facility] Comment on above: Performed By: #### C BCA, CMP, 2156-6, 04890-9, 65667-1, 69280-6, PINR, 85127-7, 2639-3 #### [facility] ([id number]) [address] [place] [address] Eosinophils (Bld) [#/Vol] 0.1 10*3/uL Normal 0.0-0.4 [facility] Comment on above: Performed By: #### C BCA, CMP, 2156-6, 39171-2, 38928-2, 35428-9, PINR, 78922-6, 2639-3 #### [facility] ([id number]) [address] [place] [address] Eosinophils/100 WBC (Bld) 1.3 % Normal [facility] Comment on above: Performed By: #### C BCA, CMP, 2156-6, 89379-0, 39310-8, 81427-2, PINR, 46966-8, 2639-3 #### [facility] ([id number]) [address] [place] [address] Erythrocyte distribution width (RBC) [Ratio] 15.4 % High 11.5-15.0 [facility] Comment on above: Performed By: #### C BCA, CMP, 7-6, 19493-2, 10263-5, 10384-5, PINR, 60370-6, 2639-3 #### [facility] ([id number]) [address] [place] [address] Hematocrit (Bld) [Volume fraction] 36.0 % Normal 35-47 [facility] Comment on above: Performed By: #### C BCA, CMP, 2156-6, 76400-3, 01173-4, 86001-6, PINR, 95560-8, 2639-3 #### [facility] ([id number]) [address] [place] [address] Hemoglobin (Bld) [Mass/Vol] 12.2 g/dL Normal 11.7-15.5 [facility] Comment on above: Performed By: #### C BCA, CMP, 2156-6, 03377-4, 86959-1, 03822-6, PINR, 19349-4, 2639-3 #### [facility] ([id number]) [address] [place] [address] Lymphocytes (Bld) [#/Vol] 0.9 10*3/uL Low 1.0-3.5 [facility] Comment on above: Performed By: #### C BCA, CMP, 2156-6, 19615-3, 57041-5, 48066-7, PINR, 28737-1, 2639-3 #### [facility] ([id number]) [address] [place] [address]5947 Lymphocytes/100 WBC (Bld) 9.4 % Normal [facility] Comment on above: Performed By: #### C BCA, CMP, 2156-6, 83896-6, 16670-8, 04252-6, PINR, 44356-0, 2639-3 #### [facility] ([id number]) [address] [place] [address] 36850 MCH (RBC) [Entitic mass] 28.0 pg Normal 27-34 [facility] Comment on above: Performed By: #### C BCA, CMP, 2156-6, 74180-3, 70298-7, 00929-2, PINR, 78900-6, 2639-3 #### [facility] ([id number]) [address] [place] [address] 87300 MCHC (RBC) [Mass/Vol] 34.0 g/dL Normal 32-36 [facility] Comment on above: Performed By: #### C BCA, CMP, 2156-, 21740-2, 98156-8, 84165-7, PINR, 69474-2, 2639-3 #### [facility] ([id number]) [address] [place] [address] MCV (RBC) [Entitic vol] 82 fL Normal 80-100 [facility] Comment on above: Performed By: #### C BCA, CMP, 2156-, 29622-8, 47727-9, 59290-3, PINR, 80175-6, 2639-3 #### [facility] ([id number]) [address] [place] [address] 83603 Monocytes (Bld) [#/Vol] 1.4 10*3/uL High 0-0.9 [facility] Comment on above: Performed By: #### C BCA, CMP, 2156-6, 51329-1, 03118-4, 48806-0, PINR, 58801-3, 2639-3 #### [facility] ([id number]) [address] [place] [address] 67781 Monocytes/100 WBC (Bld) 13.8 % Normal [facility] Comment on above: Performed By: #### C BCA, CMP, 2157-6, 58040-6, 64303-7, 42573-2, PINR, 36586-5, 2639-3 #### [facility] ([id number]) [address] [place] [address] 27126 Neutrophils/100 WBC (Bld) 74.8 % Normal [facility] Comment on above: Performed By: #### C BCA, CMP, 7-6, 74934-6, 90560-8, 11083-8, PINR, 14289-4, 2639-3 #### [facility] ([id number]) [address] [place] [address] 17597 Platelet mean volume (Bld) [Entitic vol] 9.4 fL Normal 7-12 [facility] Comment on above: Performed By: #### C BCA, CMP, 2156-6, 15201-1, 66863-8, 99131-5, PINR, 51123-9, 2639-3 #### [facility] ([id number]) [address] [place] [address] 63655 Platelets (Bld) [#/Vol] 215 10*3/uL Normal 150-450 [facility] Comment on above: Performed By: #### C BCA, CMP, 7-6, 33462-8, 77066-5, 18029-8, PINR, 48573-0, 2639-3 #### [facility] ([id number]) [address] [place] [address] 54260 RBC COUNT 4.36 X10E12/L Normal 3.80-5.20 [facility] Comment on above: Performed By: #### C BCA, CMP, 2157-6, 40467-3, 04738-3, 85760-1, PINR, 37600-3, 2639-3 #### [facility] ([id number]) [address] [place] [address] 12365 WBC (Bld) [#/Vol] 10.1 10*3/uL Normal 4.0-11.0 [facility] Comment on above: Performed By: #### C BCA, CMP, 2157-6, 33967-1, 57365-2, 40297-9, PINR, 25276-6, 2639-3 #### [facility] ([id number]) [address] [place] [address] [place] [address] CK [Catalytic activity/Vol]o n 09-01-2024 CPK 188 U/L High 24-170 [facility] Comment on above: Performed By: #### C BCA, CMP, 2156-6, 50948-3, 68343-5, 15750-1, PINR, 41262-7, 2639-3 #### [facility] ([id number]) [address] [place] [address] 99753 COMPREHENSIVE METABOLIC PANE Antoni 09-01-2024 Albumin [Mass/Vol] 2.6 g/dL Low 3.2-5.3 [facility] Comment on above: Performed By: #### C BCA, CMP, 2156-6, 47773-9, 71816-4, 59011-8, PINR, 05543-8, 2639-3 #### [facility] ([id number]) [address] [place] [address] 56348 ALP [Catalytic activity/Vol] 101 U/L Normal 39-130 [facility] Comment on above: Performed By: #### C BCA, CMP, 7-6, 76227-5, 30001-5, 35740-0, PINR, 15490-8, 2639-3 #### [facility] ([id number]) [address] [place] [address] [place] [address] ALT [Catalytic activity/Vol] 34 U/L High 0-31 [facility] Comment on above: Performed By: #### C BCA, CMP, 7-6, 22206-9, 94840-2, 71615-7, PINR, 93442-0, 2639-3 #### [facility] ([id number]) [address] [place] [address] 68372 Anion gap [Moles/Vol] 11 mmol/L Normal 5-15 [facility] Comment on above: Performed By: #### C BCA, CMP, 7-6, 97085-4, 88431-5, 67008-1, PINR, 54326-0, 2639-3 #### [facility] ([id number]) [address] [place] [address] 64461 AST [Catalytic activity/Vol] 32 U/L Normal 0-41 [facility] Comment on above: Performed By: #### C BCA, CMP, 2156-6, 37557-3, 08054-5, 27015-3, PINR, 35996-8, 2639-3 #### [facility] ([id number]) [address] [place] [address] 94817 Bilirubin [Mass/Vol] 0.5 mg/dL Normal 0.3-1.2 [facility] Comment on above: Performed By: #### C BCA, CMP, 2156-6, 86988-8, 81139-9, 55283-1, PINR, 46313-8, 2639-3 #### [facility] ([id number]) [address] [place] [address] 97879 Calcium [Mass/Vol] 8.5 mg/dL Normal 8.5-10.5 [facility] Comment on above: Performed By: #### C BCA, CMP, 2156-6, 44573-2, 08781-0, 35970-3, PINR, 38501-6, 2639-3 #### [facility] ([id number]) [address] [place] [address] 46128 Chloride [Moles/Vol] 106 mmol/L Normal 98-109 [facility] Comment on above: Performed By: #### C BCA, CMP, 2156-6, 24762-2, 97504-3, 55229-1, PINR, 91167-4, 2639-3 #### [facility] ([id number]) [address] [place] [address] 89479 CO2 [Moles/Vol] 24 mmol/L Normal 22-32 [facility] Comment on above: Performed By: #### C BCA, CMP, 2156-6, 23971-3, 15303-1, 08256-0, PINR, 66470-5, 2639-3 #### [facility] ([id number]) [address] [place] [address] 22531 Creatinine [Mass/Vol] 0.87 mg/dL Normal 0.40-1.00 [facility] Comment on above: Result Comment: METH OD TRACEABLE TO IDMS STANDARD Performed By: #### C BCA, CMP, 6, 42570-6, 32023-1, 08890-1, PINR, 84742-6, 2639-3 #### [facility] ([id number]) [address] [place] [address] 40696 GFR/1.73 sq M.predicted among non-blacks MDRD (S/P/Bld) [Vol rate/Area] 78 mL/min/{1.73_m2} Normal >59 [facility] Comment on above: Result Comment: Reported eGFR is based on the CKD-EPI 2020 equation that does not use a race coefficient. Performed By: #### C BCA, CMP, 2156-6, 08182-3, 07018-3, 82082-0, PINR, 22285-4, 2639-3 #### [facility] ([id number]) [address] [place] [address] 19639 Glucose [Mass/Vol] 108 mg/dL High 65-99 [facility] Comment on above: Performed By: #### C BCA, CMP, 2156-6, 35377-4, 08906-3, 24811-0, PINR, 39532-0, 2639-3 #### [facility] ([id number]) [address] [place] [address] 26212 Potassium [Moles/Vol] 4.1 mmol/L Normal 3.5-5.0 [facility] Comment on above: Performed By: #### C BCA, CMP, 2156-, 08805-7, 51274-7, 62224-2, PINR, 40476-3, 2639-3 #### [facility] ([id number]) [address] [place] [address] 91511 Protein [Mass/Vol] 6.6 g/dL Normal 6.0-8.0 [facility] Comment on above: Performed By: #### C BCA, CMP, 2156-, 04663-7, 39872-6, 82652-7, PINR, 27598-7, 2639-3 #### [facility] ([id number]) [address] [place] [address] 52718 Sodium [Moles/Vol] 141 mmol/L Normal 134-146 [facility] Comment on above: Performed By: #### C BCA, CMP, 2156-, 14070-7, 56594-5, 28061-9, PINR, 12006-9, 2639-3 #### [facility] ([id number]) [address] [place] [address] 50765 Urea nitrogen [Mass/Vol] 12 mg/dL Normal 5-23 [facility] Comment on above: Performed By: #### C BCA, CMP, 2156-, 08574-8, 66808-6, 70920-4, PINR, 20980-6, 2639-3 #### [facility] ([id number]) [address] [place] [address] 75336 MAGNESIUMon 09-01-2024 Magnesium [Mass/Vol] 2.0 mg/dL Normal 1.8-2.6 [facility] Comment on above: Performed By: #### C BCA, CMP, 2156-10, 97886-1, 93762-5, 92439-3, PINR, 72516-8, 2639-3 #### [facility] ([id number]) [address] [place] [address] [place] [address] Myoglobin [Mass/Vol]on 09-01 SERUM MYOGLOBIN 53.7 ng/mL Normal 14.3-65.8 [facility] Comment on above: Performed By: #### C BCA, CMP, 2156-10, 25762-0, 28749-0, 94950-9, PINR, 24440-6, 2639-3 #### [facility] ([id number]) [address] [place] [address] [place] [address] CBC AND AUTO DIFFon 09-01-19 25 ABSOLUTE BASOPHIL 0.1 X10E9/L Normal 0.0-0.2 [facility] Comment on above: Performed By: #### C BCA, CMP, 2156-10, 64223-2, 23619-0, 52250-4, PINR, 18914-2, 2639-3 #### [facility] ([id number]) [address] [place] [address] [place] [address] ABSOLUTE NEUTROPHIL 7.4 X10E9/L High 1.5-6.6 [facility] Comment on above: Performed By: #### C BCA, CMP, 2156-10, 44520-4, 34882-3, 16609-2, PINR, 90739-4, 2639-3 #### [facility] ([id number]) [address] [place] [address] [place] [address] Basophils/100 WBC (Bld) 0.9 % Normal [facility] Comment on above: Performed By: #### C BCA, CMP, 2156-10, 46708-2, 58680-3, 77700-5, PINR, 39195-3, 2639-3 #### [facility] ([id number]) [address] [place] [address] 04738 Eosinophils (Bld) [#/Vol] 0.1 10*3/uL Normal 0.0-0.4 [facility] Comment on above: Performed By: #### C BCA, CMP, 2156-, 85129-4, 82790-6, 34033-2, PINR, 07869-2, 2639-3 #### [facility] ([id number]) [address] [place] [address] 68838 Eosinophils/100 WBC (Bld) 1.4 % Normal [facility] Comment on above: Performed By: #### C BCA, CMP, 2156-, 08057-6, 17341-4, 75204-9, PINR, 44237-5, 2639-3 #### [facility] ([id number]) [address] [place] [address] 31645 Erythrocyte distribution width (RBC) [Ratio] 15.8 % High 11.5-15.0 [facility] Comment on above: Performed By: #### C BCA, CMP, 2156-6, 15554-4, 05104-2, 82847-9, PINR, 94590-7, 2639-3 #### [facility] ([id number]) [address] [place] [address] 26709 Hematocrit (Bld) [Volume fraction] 35.7 % Normal 35-47 [facility] Comment on above: Performed By: #### C BCA, CMP, 2156-6, 55006-3, 99923-2, 05531-3, PINR, 65846-1, 2639-3 #### [facility] ([id number]) [address] [place] [address] 27972 Hemoglobin (Bld) [Mass/Vol] 12.1 g/dL Normal 11.7-15.5 [facility] Comment on above: Performed By: #### C BCA, CMP, 7-6, 41436-0, 40995-5, 60208-8, PINR, 72987-4, 2639-3 #### [facility] ([id number]) [address] [place] [address] 81914 Lymphocytes (Bld) [#/Vol] 0.8 10*3/uL Low 1.0-3.5 [facility] Comment on above: Performed By: #### C BCA, CMP, 2156-6, 29886-1, 05253-0, 64794-3, PINR, 52732-2, 2639-3 #### [facility] ([id number]) [address] [place] [address] 17172 Lymphocytes/100 WBC (Bld) 8.5 % Normal [facility] Comment on above: Performed By: #### C BCA, CMP, 2156-6, 63788-0, 01711-6, 84626-2, PINR, 42363-0, 2639-3 #### [facility] ([id number]) [address] [place] [address] 05732 MCH (RBC) [Entitic mass] 28.1 pg Normal 27-34 [facility] Comment on above: Performed By: #### C BCA, CMP, 2156-6, 28320-6, 08510-6, 36634-1, PINR, 12930-9, 2639-3 #### [facility] ([id number]) [address] [place] [address] 30171 MCHC (RBC) [Mass/Vol] 33.9 g/dL Normal 32-36 [facility] Comment on above: Performed By: #### C BCA, CMP, 2156-6, 39385-1, 88915-1, 05772-4, PINR, 60028-4, 2639-3 #### [facility] ([id number]) [address] [place] [address] 06461 MCV (RBC) [Entitic vol] 83 fL Normal 80-100 [facility] Comment on above: Performed By: #### C BCA, CMP, 2156-6, 54813-6, 66378-3, 98928-7, PINR, 77737-9, 2639-3 #### [facility] ([id number]) [address] [place] [address] 44654 Monocytes (Bld) [#/Vol] 1.4 10*3/uL High 0-0.9 [facility] Comment on above: Performed By: #### C BCA, CMP, 2156-6, 46625-4, 67179-2, 76819-0, PINR, 91161-1, 2639-3 #### [facility] ([id number]) [address] [place] [address] 31322 Monocytes/100 WBC (Bld) 14.1 % Normal [facility] Comment on above: Performed By: #### C BCA, CMP, 2156-6, 31560-0, 72674-6, 67116-1, PINR, 65851-6, 2639-3 #### [facility] ([id number]) [address] [place] [address] 65457 Neutrophils/100 WBC (Bld) 75.1 % Normal [facility] Comment on above: Performed By: #### C BCA, CMP, 2156-6, 96361-1, 82855-5, 41758-0, PINR, 71739-2, 2639-3 #### [facility] ([id number]) [address] [place] [address] 59130 Platelet mean volume (Bld) [Entitic vol] 10.0 fL Normal 7-12 [facility] Comment on above: Performed By: #### C BCA, CMP, 2157-6, 34245-7, 06708-9, 66255-7, PINR, 26002-4, 2639-3 #### [facility] ([id number]) [address] [place] [address] 25040 Platelets (Bld) [#/Vol] 206 10*3/uL Normal 150-450 [facility] Comment on above: Performed By: #### C BCA, CMP, 2157-6, 08888-7, 98677-6, 21506-8, PINR, 08804-4, 2639-3 #### [facility] ([id number]) [address] [place] [address] 84639 RBC COUNT 4.31 X10E12/L Normal 3.80-5.20 [facility] Comment on above: Performed By: #### C BCA, CMP, 2156-6, 04261-0, 80160-7, 83742-0, PINR, 76506-3, 2639-3 #### [facility] ([id number]) [address] [place] [address] 67368 WBC (Bld) [#/Vol] 9.9 10*3/uL Normal 4.0-11.0 [facility] Comment on above: Performed By: #### C BCA, CMP, 7-6, 98230-4, 11560-2, 69479-4, PINR, 04169-7, 2639-3 #### [facility] ([id number]) [address] [place] [address] 99373 CK [Catalytic activity/Vol]o n 08-31-2024 CPK 324 U/L High 24-170 [facility] Comment on above: Performed By: #### C BCA, CMP, 2157-6, 93810-5, 54157-1, 39799-9, PINR, 44074-0, 2639-3 #### [facility] ([id number]) [address] [place] [address] 92274 CPK 405 U/L High 24-170 [facility] Comment on above: Performed By: #### C BCA, CMP, 2157-6, 27040-2, 10428-7, 50974-6, PINR, 35445-3, 2639-3 #### [facility] ([id number]) [address] [place] [address] 20102 COMPREHENSIVE METABOLIC PANE Antoni 08-31-2024 Albumin [Mass/Vol] 2.5 g/dL Low 3.2-5.3 [facility] Comment on above: Performed By: #### C BCA, CMP, 2156-6, 47419-0, 29581-1, 73468-3, PINR, 57660-9, 2639-3 #### [facility] ([id number]) [address] [place] [address] 62454 ALP [Catalytic activity/Vol] 75 U/L Normal 39-130 [facility] Comment on above: Performed By: #### C BCA, CMP, 2156-6, 35967-0, 33429-0, 49873-9, PINR, 35242-1, 2639-3 #### [facility] ([id number]) [address] [place] [address] 24157 ALT [Catalytic activity/Vol] 31 U/L Normal 0-31 [facility] Comment on above: Performed By: #### C BCA, CMP, 7-6, 56727-2, 06518-7, 69950-8, PINR, 64365-5, 2639-3 #### [facility] ([id number]) [address] [place] [address] 46171 Anion gap [Moles/Vol] 9 mmol/L Normal 5-15 [facility] Comment on above: Performed By: #### C BCA, CMP, 2156-6, 17590-2, 16309-1, 61896-0, PINR, 89169-0, 2639-3 #### [facility] ([id number]) [address] [place] [address] 38300 AST [Catalytic activity/Vol] 36 U/L Normal 0-41 [facility] Comment on above: Performed By: #### C BCA, CMP, 7-6, 55594-2, 57802-3, 72982-8, PINR, 68988-6, 2639-3 #### [facility] ([id number]) [address] [place] [address] 41828 Bilirubin [Mass/Vol] 0.5 mg/dL Normal 0.3-1.2 [facility] Comment on above: Performed By: #### C BCA, CMP, 2156-6, 82007-4, 54473-9, 64499-4, PINR, 82789-9, 2639-3 #### [facility] ([id number]) [address] [place] [address] 81184 Calcium [Mass/Vol] 8.2 mg/dL Low 8.5-10.5 [facility] Comment on above: Performed By: #### C BCA, CMP, 7-6, 34975-8, 26206-1, 42228-8, PINR, 15256-0, 2639-3 #### [facility] ([id number]) [address] [place] [address] 14337 Chloride [Moles/Vol] 107 mmol/L Normal 98-109 [facility] Comment on above: Performed By: #### C BCA, CMP, 7-6, 21564-3, 53004-1, 56597-4, PINR, 73054-7, 2639-3 #### [facility] ([id number]) [address] [place] [address] 25605 CO2 [Moles/Vol] 24 mmol/L Normal 22-32 [facility] Comment on above: Performed By: #### C BCA, CMP, 2156-6, 44278-1, 31427-1, 11629-6, PINR, 74399-9, 2639-3 #### [facility] ([id number]) [address] [place] [address] 37099 Creatinine [Mass/Vol] 0.83 mg/dL Normal 0.40-1.00 [facility] Comment on above: Result Comment: METH OD TRACEABLE TO IDMS STANDARD Performed By: #### C BCA, CMP, 2156-6, 60788-6, 30491-9, 10987-9, PINR, 70052-8, 2639-3 #### [facility] ([id number]) [address] [place] [address] 74433 GFR/1.73 sq M.predicted among non-blacks MDRD (S/P/Bld) [Vol rate/Area] 83 mL/min/{1.73_m2} Normal >59 [facility] Comment on above: Result Comment: Reported eGFR is based on the CKD-EPI 2020 equation that does not use a race coefficient. Performed By: #### C BCA, CMP, 2156-6, 06381-9, 77623-4, 30067-6, PINR, 54335-0, 2639-3 #### [facility] ([id number]) [address] [place] [address] 12253 Glucose [Mass/Vol] 101 mg/dL High 65-99 [facility] Comment on above: Performed By: #### C BCA, CMP, 2156-6, 06103-1, 44461-1, 34527-8, PINR, 52840-0, 2639-3 #### [facility] ([id number]) [address] [place] [address] 44480 Potassium [Moles/Vol] 3.7 mmol/L Normal 3.5-5.0 [facility] Comment on above: Performed By: #### C BCA, CMP, 2156-10, 14017-4, 92610-9, 62769-0, PINR, 03900-6, 2639-3 #### [facility] ([id number]) [address] [place] [address] 36304 Protein [Mass/Vol] 6.3 g/dL Normal 6.0-8.0 [facility] Comment on above: Performed By: #### C BCA, CMP, 2156-6, 76470-8, 74061-2, 49085-1, PINR, 69468-2, 2639-3 #### [facility] ([id number]) [address] [place] [address] 13294 Sodium [Moles/Vol] 140 mmol/L Normal 134-146 [facility] Comment on above: Performed By: #### C BCA, CMP, 2156-6, 14621-7, 44756-0, 59678-0, PINR, 79648-3, 2639-3 #### [facility] ([id number]) [address] [place] [address] 69999 Urea nitrogen [Mass/Vol] 8 mg/dL Normal 5-23 [facility] Comment on above: Performed By: #### C BCA, CMP, 2156-6, 86628-0, 39417-8, 81726-6, PINR, 80210-6, 2639-3 #### [facility] ([id number]) [address] [place] [address] 79065 MAGNESIUMon 08-31-2024 Magnesium [Mass/Vol] 2.0 mg/dL Normal 1.8-2.6 [facility] Comment on above: Performed By: #### C BCA, CMP, 2156-6, 40636-8, 12297-8, 47216-3, PINR, 66702-2, 2639-3 #### [facility] ([id number]) [address] [place] [address] 80834 Myoglobin [Mass/Vol]on 08-31 SERUM MYOGLOBIN 47.5 ng/mL Normal 14.3-65.8 [facility] Comment on above: Performed By: #### C BCA, CMP, 2156-6, 52737-8, 68043-4, 92968-7, PINR, 02012-9, 2639-3 #### [facility] ([id number]) [address] [place] [address] 69758 SERUM MYOGLOBIN 62.9 ng/mL Normal 14.3-65.8 [facility] Comment on above: Performed By: #### C BCA, CMP, 2156-10, 16001-6, 65378-4, 67008-0, PINR, 18140-5, 2639-3 #### [facility] ([id number]) [address] [place] [address] 08379 POTASSIUMon 08-31-2024 Potassium [Moles/Vol] 4.0 mmol/L Normal 3.5-5.0 [facility] Comment on above: Performed By: #### C BCA, CMP, 2156-6, 08329-8, 11427-8, 90960-3, PINR, 89865-7, 2639-3 #### [facility] ([id number]) [address] [place] [address] 49724 CBC AND AUTO DIFFon 08-31-19 25 ABSOLUTE BASOPHIL 0.1 X10E9/L Normal 0.0-0.2 [facility] Comment on above: Performed By: #### C BCA, CMP, 2156-6, 48707-3, 43699-0, 69105-1, PINR, 61888-9, 2639-3 #### [facility] ([id number]) [address] [place] [address] 40566 ABSOLUTE NEUTROPHIL 9.5 X10E9/L High 1.5-6.6 [facility] Comment on above: Performed By: #### C BCA, CMP, 7-6, 01418-9, 35177-0, 55945-0, PINR, 83240-7, 2639-3 #### [facility] ([id number]) [address] [place] [address] 20195 Basophils/100 WBC (Bld) 0.5 % Normal [facility] Comment on above: Performed By: #### C BCA, CMP, 2156-6, 07688-1, 82519-7, 78708-1, PINR, 17024-4, 2639-3 #### [facility] ([id number]) [address] [place] [address] 96371 Eosinophils (Bld) [#/Vol] 0.0 10*3/uL Normal 0.0-0.4 [facility] Comment on above: Performed By: #### C BCA, CMP, 2156-6, 01415-8, 84394-6, 00064-4, PINR, 39502-6, 2639-3 #### [facility] ([id number]) [address] [place] [address] 60124 Eosinophils/100 WBC (Bld) 0.3 % Normal [facility] Comment on above: Performed By: #### C BCA, CMP, 2156-6, 06304-8, 88766-4, 69933-7, PINR, 58959-3, 2639-3 #### [facility] ([id number]) [address] [place] [address] 41278 Erythrocyte distribution width (RBC) [Ratio] 15.0 % Normal 11.5-15.0 [facility] Comment on above: Performed By: #### C BCA, CMP, 7-6, 74916-8, 26729-8, 61679-0, PINR, 87163-8, 2639-3 #### [facility] ([id number]) [address] [place] [address] [place] [address] Hematocrit (Bld) [Volume fraction] 36.8 % Normal 35-47 [facility] Comment on above: Performed By: #### C BCA, CMP, 2156-10, , 04033-4, 30076-4, PINR, 18335-8, 2639-3 #### [facility] ([id number]) [address] [place] [address] 88699 Hemoglobin (Bld) [Mass/Vol] 12.4 g/dL Normal 11.7-15.5 [facility] Comment on above: Performed By: #### C BCA, CMP, 2156-10, , 03525-1, 23375-3, PINR, 86779-6, 2639-3 #### [facility] ([id number]) [address] [place] [address] 54860 Lymphocytes (Bld) [#/Vol] 0.7 10*3/uL Low 1.0-3.5 [facility] Comment on above: Performed By: #### C BCA, CMP, 2156-10, , 34137-2, 85903-4, PINR, 51242-1, 2639-3 #### [facility] ([id number]) [address] [place] [address] 96062 Lymphocytes/100 WBC (Bld) 5.8 % Normal [facility] Comment on above: Performed By: #### C BCA, CMP, 2156-10, , 37841-5, 55461-6, PINR, 29822-3, 2639-3 #### [facility] ([id number]) [address] [place] [address] 85974 MCH (RBC) [Entitic mass] 28.0 pg Normal 27-34 [facility] Comment on above: Performed By: #### C BCA, CMP, 2156-10, , 26276-4, 58207-2, PINR, 59120-3, 2639-3 #### [facility] ([id number]) [address] [place] [address] 60667 MCHC (RBC) [Mass/Vol] 33.6 g/dL Normal 32-36 [facility] Comment on above: Performed By: #### C BCA, CMP, 2156-6, 23287-6, 09484-4, 17839-9, PINR, 96292-2, 2639-3 #### [facility] ([id number]) [address] [place] [address] 70378 MCV (RBC) [Entitic vol] 83 fL Normal 80-100 [facility] Comment on above: Performed By: #### C BCA, CMP, 2156-6, 04775-4, 58502-4, 77667-1, PINR, 99822-6, 2639-3 #### [facility] ([id number]) [address] [place] [address] 81015 Monocytes (Bld) [#/Vol] 1.1 10*3/uL High 0-0.9 [facility] Comment on above: Performed By: #### C BCA, CMP, 2156-6, 79441-0, 45086-0, 61325-6, PINR, 11071-1, 2639-3 #### [facility] ([id number]) [address] [place] [address] 73765 Monocytes/100 WBC (Bld) 9.8 % Normal [facility] Comment on above: Performed By: #### C BCA, CMP, 2156-6, 05741-8, 27810-3, 25444-2, PINR, 02091-4, 2639-3 #### [facility] ([id number]) [address] [place] [address] 24807 Neutrophils/100 WBC (Bld) 83.6 % Normal [facility] Comment on above: Performed By: #### C BCA, CMP, 7-6, 26467-2, 90099-4, 72751-2, PINR, 97332-7, 2639-3 #### [facility] ([id number]) [address] [place] [address] 94316 Platelet mean volume (Bld) [Entitic vol] 9.6 fL Normal 7-12 [facility] Comment on above: Performed By: #### C BCA, CMP, 2156-6, 39091-8, 34182-8, 65012-7, PINR, 60355-2, 2639-3 #### [facility] ([id number]) [address] [place] [address] 08988 Platelets (Bld) [#/Vol] 202 10*3/uL Normal 150-450 [facility] Comment on above: Performed By: #### C BCA, CMP, 2156-6, 80263-1, 50443-6, 25879-7, PINR, 83300-4, 2639-3 #### [facility] ([id number]) [address] [place] [address] 85854 RBC COUNT 4.41 X10E12/L Normal 3.80-5.20 [facility] Comment on above: Performed By: #### C BCA, CMP, 2156-6, 84509-4, 78526-8, 28696-6, PINR, 61709-4, 2639-3 #### [facility] ([id number]) [address] [place] [address] 75862 WBC (Bld) [#/Vol] 11.4 10*3/uL High 4.0-11.0 [facility] Comment on above: Performed By: #### C BCA, CMP, 2156-6, 65194-8, 72896-2, 64652-5, PINR, 93380-2, 2639-3 #### [facility] ([id number]) [address] [place] [address] [place] [address] CK [Catalytic activity/Vol]o n 08-30-2024 CPK 563 U/L High 24-170 [facility] Comment on above: Performed By: #### C BCA, CMP, 2157-6, 14235-9, 01014-7, 91950-8, PINR, 41419-5, 2639-3 #### [facility] ([id number]) [address] [place] [address] 53938 CPK 831 U/L High 24-170 [facility] Comment on above: Performed By: #### C BCA, CMP, 2157-6, 70327-2, 99572-0, 79391-6, PINR, 90718-2, 2639-3 #### [facility] ([id number]) [address] [place] [address] 78466 CPK 1066 U/L High 24-170 [facility] Comment on above: Performed By: #### C BCA, CMP, 2157-6, 74779-4, 07191-0, 46757-3, PINR, 28211-4, 2639-3 #### [facility] ([id number]) [address] [place] [address] 90171 COMPREHENSIVE METABOLIC PANE Antoni 08-30-2024 Albumin [Mass/Vol] 2.7 g/dL Low 3.2-5.3 [facility] Comment on above: Performed By: #### C BCA, CMP, 2157-6, 55163-5, 09815-7, 04542-0, PINR, 92644-7, 2639-3 #### [facility] ([id number]) [address] [place] [address] 04961 ALP [Catalytic activity/Vol] 57 U/L Normal 39-130 [facility] Comment on above: Performed By: #### C BCA, CMP, 2157-6, 03303-0, 31050-3, 14468-6, PINR, 29172-1, 2639-3 #### [facility] ([id number]) [address] [place] [address] 71085 ALT [Catalytic activity/Vol] 36 U/L High 0-31 [facility] Comment on above: Performed By: #### C BCA, CMP, 2156-6, 71870-8, 41468-9, 66687-2, PINR, 18347-9, 2639-3 #### [facility] ([id number]) [address] [place] [address] 84385 Anion gap [Moles/Vol] 11 mmol/L Normal 5-15 [facility] Comment on above: Performed By: #### C BCA, CMP, 2156-6, 01963-3, 16131-0, 13301-6, PINR, 64267-3, 2639-3 #### [facility] ([id number]) [address] [place] [address] 89374 AST [Catalytic activity/Vol] 52 U/L High 0-41 [facility] Comment on above: Performed By: #### C BCA, CMP, 2156-6, 27440-7, 54727-3, 70327-3, PINR, 54081-5, 2639-3 #### [facility] ([id number]) [address] [place] [address] 44887 Bilirubin [Mass/Vol] 0.6 mg/dL Normal 0.3-1.2 [facility] Comment on above: Performed By: #### C BCA, CMP, 2156-6, 12447-4, 83220-6, 71807-1, PINR, 11417-9, 2639-3 #### [facility] ([id number]) [address] [place] [address] 81511 Calcium [Mass/Vol] 8.2 mg/dL Low 8.5-10.5 [facility] Comment on above: Performed By: #### C BCA, CMP, 2156-6, 34045-5, 39808-2, 80271-1, PINR, 92189-6, 2639-3 #### [facility] ([id number]) [address] [place] [address] 20556 Chloride [Moles/Vol] 106 mmol/L Normal 98-109 [facility] Comment on above: Performed By: #### C BCA, CMP, 2156-6, 01369-9, 13822-2, 88272-3, PINR, 57720-6, 2639-3 #### [facility] ([id number]) [address] [place] [address] 02530 CO2 [Moles/Vol] 21 mmol/L Low 22-32 [facility] Comment on above: Performed By: #### C BCA, CMP, 2156-6, 81932-1, 73171-5, 19566-7, PINR, 77645-9, 2639-3 #### [facility] ([id number]) [address] [place] [address] 45214 Creatinine [Mass/Vol] 0.87 mg/dL Normal 0.40-1.00 [facility] Comment on above: Result Comment: METH OD TRACEABLE TO IDMS STANDARD Performed By: #### C BCA, CMP, 2156-6, 07402-2, 57138-4, 01703-3, PINR, 33678-7, 2639-3 #### [facility] ([id number]) [address] [place] [address] 51058 GFR/1.73 sq M.predicted among non-blacks MDRD (S/P/Bld) [Vol rate/Area] 78 mL/min/{1.73_m2} Normal >59 [facility] Comment on above: Result Comment: Reported eGFR is based on the CKD-EPI 2020 equation that does not use a race coefficient. Performed By: #### C BCA, CMP, 2156-6, 98734-0, 83904-3, 20996-0, PINR, 34693-3, 2639-3 #### [facility] ([id number]) [address] [place] [address] 38464 Glucose [Mass/Vol] 107 mg/dL High 65-99 [facility] Comment on above: Performed By: #### C BCA, CMP, 2156-6, 82261-3, 02434-3, 04077-0, PINR, 44090-3, 2639-3 #### [facility] ([id number]) [address] [place] [address] 98533 Potassium [Moles/Vol] 3.9 mmol/L Normal 3.5-5.0 [facility] Comment on above: Performed By: #### C BCA, CMP, 2156-, 47908-4, 13850-9, 53250-9, PINR, 74962-2, 2639-3 #### [facility] ([id number]) [address] [place] [address] 40784 Protein [Mass/Vol] 6.2 g/dL Normal 6.0-8.0 [facility] Comment on above: Performed By: #### C BCA, CMP, 2156-6, 21197-0, 63768-7, 49346-4, PINR, 44038-2, 2639-3 #### [facility] ([id number]) [address] [place] [address] 99437 Sodium [Moles/Vol] 138 mmol/L Normal 134-146 [facility] Comment on above: Performed By: #### C BCA, CMP, 2156-6, 39519-9, 76529-1, 65725-8, PINR, 95785-5, 2639-3 #### [facility] ([id number]) [address] [place] [address] [place] [address] Urea nitrogen [Mass/Vol] 6 mg/dL Normal 5-23 [facility] Comment on above: Performed By: #### C BCA, CMP, 2156-10, 83951-2, 09489-6, 76562-9, PINR, 83332-3, 2639-3 #### [facility] ([id number]) [address] [place] [address] 32298 MAGNESIUMon 08-30-2024 Magnesium [Mass/Vol] 2.0 mg/dL Normal 1.8-2.6 [facility] Comment on above: Performed By: #### C BCA, CMP, 2156-10, 28117-2, 45292-9, 46854-1, PINR, 43123-2, 2639-3 #### [facility] ([id number]) [address] [place] [address] 46565 Myoglobin [Mass/Vol]on 08-30 SERUM MYOGLOBIN 67.5 ng/mL High 14.3-65.8 [facility] Comment on above: Performed By: #### C BCA, CMP, 2156-10, 47624-8, 48535-5, 10803-0, PINR, 11833-1, 2639-3 #### [facility] ([id number]) [address] [place] [address] 45531 SERUM MYOGLOBIN 127.2 ng/mL High 14.3-65.8 [facility] Comment on above: Performed By: #### C BCA, CMP, 2156-10, 83681-5, 92720-3, 64719-0, PINR, 40247-6, 2639-3 #### [facility] ([id number]) [address] [place] [address] 38230 SERUM MYOGLOBIN 77.9 ng/mL High 14.3-65.8 [facility] Comment on above: Performed By: #### C BCA, CMP, 2157-6, 66380-8, 50933-6, 05464-0, PINR, 02859-6, 2639-3 #### [facility] ([id number]) [address] [place] [address] 21416 CBC AND AUTO DIFFon 08-30-19 25 ABSOLUTE BASOPHIL 0.0 X10E9/L Normal 0.0-0.2 [facility] Comment on above: Performed By: #### C BCA, CMP, 2156-6, 75240-0, 90391-1, 01547-2, PINR, 22769-2, 2639-3 #### [facility] ([id number]) [address] [place] [address] [place] [address] ABSOLUTE NEUTROPHIL 5.8 X10E9/L Normal 1.5-6.6 [facility] Comment on above: Performed By: #### C BCA, CMP, 2156-6, 52645-5, 50283-5, 14933-6, PINR, 11854-2, 2639-3 #### [facility] ([id number]) [address] [place] [address] 57590 Basophils/100 WBC (Bld) 0.5 % Normal [facility] Comment on above: Performed By: #### C BCA, CMP, 2156-6, 43663-2, 31697-2, 89926-9, PINR, 81468-3, 2639-3 #### [facility] ([id number]) [address] [place] [address] 88189 Eosinophils (Bld) [#/Vol] 0.1 10*3/uL Normal 0.0-0.4 [facility] Comment on above: Performed By: #### C BCA, CMP, 2156-6, 65413-3, 25976-6, 33082-8, PINR, 05189-6, 2639-3 #### [facility] ([id number]) [address] [place] [address] Eosinophils/100 WBC (Bld) 1.6 % Normal [facility] Comment on above: Performed By: #### C BCA, CMP, 2156-6, 61995-4, 51249-0, 18109-6, PINR, 12425-2, 2639-3 #### [facility] ([id number]) [address] [place] [address] 52171 Erythrocyte distribution width (RBC) [Ratio] 15.7 % High 11.5-15.0 [facility] Comment on above: Performed By: #### C BCA, CMP, 2156-, 77127-8, 15000-6, 03871-2, PINR, 83201-2, 2639-3 #### [facility] ([id number]) [address] [place] [address] 07332 Hematocrit (Bld) [Volume fraction] 36.8 % Normal 35-47 [facility] Comment on above: Performed By: #### C BCA, CMP, 2156-, 35682-5, 49700-8, 45393-4, PINR, 31700-3, 2639-3 #### [facility] ([id number]) [address] [place] [address] 22885 Hemoglobin (Bld) [Mass/Vol] 12.3 g/dL Normal 11.7-15.5 [facility] Comment on above: Performed By: #### C BCA, CMP, 2156-10, 43305-4, 76946-9, 54556-6, PINR, 66968-5, 2639-3 #### [facility] ([id number]) [address] [place] [address] 55849 Lymphocytes (Bld) [#/Vol] 0.9 10*3/uL Low 1.0-3.5 [facility] Comment on above: Performed By: #### C BCA, CMP, 2156-, 77084-1, 50261-0, 66864-1, PINR, 12429-6, 2639-3 #### [facility] ([id number]) [address] [place] [address] 39719 Lymphocytes/100 WBC (Bld) 11.3 % Normal [facility] Comment on above: Performed By: #### C BCA, CMP, 2156-, 37465-3, 06505-6, 36152-6, PINR, 43175-0, 2639-3 #### [facility] ([id number]) [address] [place] [address] 51948 MCH (RBC) [Entitic mass] 27.8 pg Normal 27-34 [facility] Comment on above: Performed By: #### C BCA, CMP, 2156-, 82701-9, 35749-1, 94896-8, PINR, 06814-2, 2639-3 #### [facility] ([id number]) [address] [place] [address] 40632 MCHC (RBC) [Mass/Vol] 33.4 g/dL Normal 32-36 [facility] Comment on above: Performed By: #### C BCA, CMP, 2156-6, 70712-1, 36981-9, 11601-2, PINR, 66702-4, 2639-3 #### [facility] ([id number]) [address] [place] [address] 50967 MCV (RBC) [Entitic vol] 83 fL Normal 80-100 [facility] Comment on above: Performed By: #### C BCA, CMP, 2156-6, 26966-9, 50644-8, 10754-1, PINR, 92055-8, 2639-3 #### [facility] ([id number]) [address] [place] [address] 49965 Monocytes (Bld) [#/Vol] 0.8 10*3/uL Normal 0-0.9 [facility] Comment on above: Performed By: #### C BCA, CMP, 7-6, 28878-8, 29636-6, 23545-7, PINR, 69421-9, 2639-3 #### [facility] ([id number]) [address] [place] [address] 24236 Monocytes/100 WBC (Bld) 10.5 % Normal [facility] Comment on above: Performed By: #### C BCA, CMP, 2156-6, 63775-4, 04085-5, 75707-8, PINR, 52097-7, 2639-3 #### [facility] ([id number]) [address] [place] [address] 72015 Neutrophils/100 WBC (Bld) 76.1 % Normal [facility] Comment on above: Performed By: #### C BCA, CMP, 2156-6, 95954-5, 89887-9, 17798-2, PINR, 41281-5, 2639-3 #### [facility] ([id number]) [address] [place] [address] 40725 Platelet mean volume (Bld) [Entitic vol] 9.1 fL Normal 7-12 [facility] Comment on above: Performed By: #### C BCA, CMP, 2156-6, 35576-8, 46596-0, 34338-0, PINR, 08774-3, 2639-3 #### [facility] ([id number]) [address] [place] [address] 69871 Platelets (Bld) [#/Vol] 188 10*3/uL Normal 150-450 [facility] Comment on above: Performed By: #### C BCA, CMP, 2156-6, 07085-7, 65198-9, 05092-0, PINR, 51124-5, 2639-3 #### [facility] ([id number]) [address] [place] [address] 72522 RBC COUNT 4.42 X10E12/L Normal 3.80-5.20 [facility] Comment on above: Performed By: #### C BCA, CMP, 7-6, 27563-2, 35789-4, 74849-4, PINR, 45131-6, 2639-3 #### [facility] ([id number]) [address] [place] [address] 33909 WBC (Bld) [#/Vol] 7.7 10*3/uL Normal 4.0-11.0 [facility] Comment on above: Performed By: #### C BCA, CMP, 2156-6, 77867-9, 86176-4, 60599-1, PINR, 40844-4, 2639-3 #### [facility] ([id number]) [address] [place] [address] 81226 CK [Catalytic activity/Vol]o n 08-29-2024 CPK 1666 U/L High 24-170 [facility] Comment on above: Performed By: #### C BCA, CMP, 2156-6, 94008-3, 64182-5, 60171-5, PINR, 65419-7, 2639-3 #### [facility] ([id number]) [address] [place] [address] 13609 CPK 2774 U/L High 24-170 [facility] Comment on above: Performed By: #### C BCA, CMP, 7-6, 38808-0, 62246-3, 37215-4, PINR, 99046-6, 2639-3 #### [facility] ([id number]) [address] [place] [address] 43759 CPK 3580 U/L High 24-170 [facility] Comment on above: Performed By: #### C BCA, CMP, 7-6, 38657-4, 27308-5, 68045-1, PINR, 07941-1, 2639-3 #### [facility] ([id number]) [address] [place] [address] 96966 COMPREHENSIVE METABOLIC PANE Antoni 08-29-2024 Albumin [Mass/Vol] 2.7 g/dL Low 3.2-5.3 [facility] Comment on above: Performed By: #### C BCA, CMP, 2157-6, 67623-9, 66405-3, 46090-1, PINR, 16666-3, 2639-3 #### [facility] ([id number]) [address] [place] [address] 02389 ALP [Catalytic activity/Vol] 60 U/L Normal 39-130 [facility] Comment on above: Performed By: #### C BCA, CMP, 7-6, 84854-1, 07063-1, 09878-4, PINR, 73679-1, 2639-3 #### [facility] ([id number]) [address] [place] [address] 28787 ALT [Catalytic activity/Vol] 46 U/L High 0-31 [facility] Comment on above: Performed By: #### C BCA, CMP, 2157-6, 03249-9, 81519-5, 14725-2, PINR, 17099-0, 2639-3 #### [facility] ([id number]) [address] [place] [address] 14126 Anion gap [Moles/Vol] 8 mmol/L Normal 5-15 [facility] Comment on above: Performed By: #### C BCA, CMP, 2157-6, 98319-6, 72068-7, 66259-4, PINR, 23009-6, 2639-3 #### [facility] ([id number]) [address] [place] [address] 25258 AST [Catalytic activity/Vol] 94 U/L High 0-41 [facility] Comment on above: Performed By: #### C BCA, CMP, 2156-6, 80331-8, 50989-9, 12674-8, PINR, 62960-4, 2639-3 #### [facility] ([id number]) [address] [place] [address] [place] [address] Bilirubin [Mass/Vol] 0.5 mg/dL Normal 0.3-1.2 [facility] Comment on above: Performed By: #### C BCA, CMP, 2156-6, 36188-0, 34154-6, 69692-7, PINR, 59588-1, 2639-3 #### [facility] ([id number]) [address] [place] [address] 66219 Calcium [Mass/Vol] 8.0 mg/dL Low 8.5-10.5 [facility] Comment on above: Performed By: #### C BCA, CMP, 2156-6, 14756-3, 32970-7, 12604-6, PINR, 94718-9, 2639-3 #### [facility] ([id number]) [address] [place] [address], [place] [address] Chloride [Moles/Vol] 112 mmol/L High 98-109 [facility] Comment on above: Performed By: #### C BCA, CMP, 2156-6, 16314-4, 07458-4, 32514-5, PINR, 19891-1, 2639-3 #### [facility] ([id number]) [address] [place] [address] [place] [address] CO2 [Moles/Vol] 20 mmol/L Low 22-32 [facility] Comment on above: Performed By: #### C BCA, CMP, 2156-6, 65087-4, 99701-2, 79205-8, PINR, 27863-6, 2639-3 #### [facility] ([id number]) [address] [place] [address] 16624 Creatinine [Mass/Vol] 0.86 mg/dL Normal 0.40-1.00 [facility] Comment on above: Result Comment: METH OD TRACEABLE TO IDMS STANDARD Performed By: #### C BCA, CMP, 2157-6, 99864-9, 93919-2, 64306-9, PINR, 78858-0, 2639-3 #### [facility] ([id number]) [address] [place] [address] 83103 GFR/1.73 sq M.predicted among non-blacks MDRD (S/P/Bld) [Vol rate/Area] 79 mL/min/{1.73_m2} Normal >59 [facility] Comment on above: Result Comment: Reported eGFR is based on the CKD-EPI 2020 equation that does not use a race coefficient. Performed By: #### C BCA, CMP, 2156-6, 83568-0, 08896-8, 19033-3, PINR, 71223-2, 2639-3 #### [facility] ([id number]) [address] [place] [address] 52320 Glucose [Mass/Vol] 91 mg/dL Normal 65-99 [facility] Comment on above: Performed By: #### C BCA, CMP, 7-6, 07050-7, 04246-7, 55681-4, PINR, 94603-4, 2639-3 #### [facility] ([id number]) [address] [place] [address] 36880 Potassium [Moles/Vol] 4.0 mmol/L Normal 3.5-5.0 [facility] Comment on above: Performed By: #### C BCA, CMP, 2157-6, 10706-2, 78351-6, 13997-4, PINR, 56725-1, 2639-3 #### [facility] ([id number]) [address] [place] [address] 91483 Protein [Mass/Vol] 6.4 g/dL Normal 6.0-8.0 [facility] Comment on above: Performed By: #### C BCA, CMP, 2156-6, 82150-2, 08762-0, 13708-0, PINR, 28681-0, 2639-3 #### [facility] ([id number]) [address] [place] [address] 92469 Sodium [Moles/Vol] 140 mmol/L Normal 134-146 [facility] Comment on above: Performed By: #### C BCA, CMP, 2156-6, 84781-1, 08402-7, 91392-1, PINR, 49429-7, 2639-3 #### [facility] ([id number]) [address] [place] [address] 35147 Urea nitrogen [Mass/Vol] 10 mg/dL Normal 5-23 [facility] Comment on above: Performed By: #### C BCA, CMP, 2156-6, 99568-8, 85943-4, 49828-9, PINR, 13675-7, 2639-3 #### [facility] ([id number]) [address] [place] [address] 86770 Calcium.ionized (Bld) [Moles /Vol]on 08-29-2024 PORTABLE ICA 4.6 mg/dL Normal 4.5-5.3 [facility] Comment on above: Performed By: #### C BCA, CMP, 2156-6, 14101-2, 75059-7, 17711-4, PINR, 31533-2, 2639-3 #### [facility] ([id number]) [address] [place] [address] 92725 Lipid 1996 panelon 5 Cholesterol [Mass/Vol] 151 mg/dL Normal 150-200 [facility] Comment on above: Performed By: #### C BCA, CMP, 2156-6, 00705-5, 03432-9, 18185-5, PINR, 34040-3, 2639-3 #### [facility] ([id number]) [address] [place] [address] 39234 Cholesterol in HDL [Mass/Vol] 29 mg/dL Low >39 [facility] Comment on above: Result Comment: HDL <40 mg/dL - High Risk HDL > or = 40mg/dL- Desirable HDL >60 mg/dL - Negative Risk Performed By: #### C BCA, CMP, 2156-10, 43105-6, 86678-5, 77345-7, PINR, 79726-5, 2639-3 #### [facility] ([id number]) [address] [place] [address] 54713 Cholesterol in LDL [Mass/Vol] 100 mg/dL Normal <130 [facility] Comment on above: Result Comment: LDL <100 mg/dL - Desirable LDL >160 mg/dL - High Risk Performed By: #### C BCA, CMP, 2156-10, , 45926-9, 60790-8, PINR, 28934-3, 2639-3 #### [facility] ([id number]) [address] [place] [address] 00159 Cholesterol in VLDL [Mass/Vol] 22 mg/dL Normal 0-30 [facility] Comment on above: Performed By: #### C BCA, CMP, 2156-10, 45092-2, 37887-8, 76704-5, PINR, 59376-8, 2639-3 #### [facility] ([id number]) [address] [place] [address] 15981 CHOLESTEROL:HDL 5.2 High 1.0-5.0 [facility] Comment on above: Performed By: #### C BCA, CMP, 2156-6, 37491-0, 94558-4, 70819-8, PINR, 21608-4, 2639-3 #### [facility] ([id number]) [address] [place] [address] 42755 Triglyceride [Mass/Vol] 112 mg/dL Normal 27-150 [facility] Comment on above: Performed By: #### C BCA, CMP, 2156-6, 53167-6, 34229-2, 31701-1, PINR, 82910-4, 2639-3 #### [facility] ([id number]) [address] [place] [address] 20586 MAGNESIUMon 08-29-2024 Magnesium [Mass/Vol] 2.1 mg/dL Normal 1.8-2.6 [facility] Comment on above: Performed By: #### C BCA, CMP, 2156-6, 83989-3, 06447-9, 61143-3, PINR, 89960-5, 2639-3 #### [facility] ([id number]) [address] [place] [address] 71243 Magnesium [Mass/Vol] 1.9 mg/dL Normal 1.8-2.6 [facility] Comment on above: Performed By: #### C BCA, CMP, 2156-6, 75168-7, 09890-6, 36313-5, PINR, 47330-3, 2639-3 #### [facility] ([id number]) [address] [place] [address] 91752 Myoglobin [Mass/Vol]on 08-29 SERUM MYOGLOBIN 96.4 ng/mL High 14.3-65.8 [facility] Comment on above: Performed By: #### C BCA, CMP, 7-6, 37353-1, 93003-1, 85396-4, PINR, 82150-5, 2639-3 #### [facility] ([id number]) [address] [place] [address] 02987 SERUM MYOGLOBIN 230.3 ng/mL High 14.3-65.8 [facility] Comment on above: Performed By: #### C BCA, CMP, 2156-6, 46389-1, 58963-3, 65854-3, PINR, 12242-1, 2639-3 #### [facility] ([id number]) [address] [place] [address] 38635 SERUM MYOGLOBIN 374.0 ng/mL High 14.3-65.8 [facility] Comment on above: Performed By: #### C BCA, CMP, 2156-6, 81243-2, 26814-1, 00944-4, PINR, 65794-4, 2639-3 #### [facility] ([id number]) [address] [place] [address] 65168 CBC AND AUTO DIFFon 08-29-19 25 ABSOLUTE BASOPHIL 0.0 X10E9/L Normal 0.0-0.2 [facility] Comment on above: Performed By: #### C BCA, CMP, 2156-6, 03443-7, 49942-8, 78081-4, PINR, 44657-1, 2639-3 #### [facility] ([id number]) [address] [place] [address] 77084 ABSOLUTE NEUTROPHIL 12.1 X10E9/L High 1.5-6.6 [facility] Comment on above: Performed By: #### C BCA, CMP, 2156-6, 77975-2, 30047-9, 61583-1, PINR, 74500-4, 2639-3 #### [facility] ([id number]) [address] [place] [address] 07455 Basophils/100 WBC (Bld) 0.2 % Normal [facility] Comment on above: Performed By: #### C BCA, CMP, 2156-, 37450-3, 10948-0, 47109-9, PINR, 34738-2, 2639-3 #### [facility] ([id number]) [address] [place] [address] 91954 Eosinophils (Bld) [#/Vol] 0.0 10*3/uL Normal 0.0-0.4 [facility] Comment on above: Performed By: #### C BCA, CMP, 2156-, 95032-5, 25761-9, 78599-9, PINR, 16543-4, 2639-3 #### [facility] ([id number]) [address] [place] [address] 41460 Eosinophils/100 WBC (Bld) 0.1 % Normal [facility] Comment on above: Performed By: #### C BCA, CMP, 2156-, 62655-9, 59963-3, 99598-9, PINR, 42666-0, 2639-3 #### [facility] ([id number]) [address] [place] [address] 50669 Erythrocyte distribution width (RBC) [Ratio] 15.7 % High 11.5-15.0 [facility] Comment on above: Performed By: #### C BCA, CMP, 2156-, 77802-5, 63954-2, 95839-3, PINR, 03183-3, 2639-3 #### [facility] ([id number]) [address] [place] [address] 98014 Hematocrit (Bld) [Volume fraction] 40.3 % Normal 35-47 [facility] Comment on above: Performed By: #### C BCA, CMP, 2156-, 29006-7, 78560-2, 90747-7, PINR, 76735-0, 2639-3 #### [facility] ([id number]) [address] [place] [address] 62653 Hemoglobin (Bld) [Mass/Vol] 13.5 g/dL Normal 11.7-15.5 [facility] Comment on above: Performed By: #### C BCA, CMP, 2156-6, 44327-2, 53042-8, 62354-1, PINR, 71236-4, 2639-3 #### [facility] ([id number]) [address] [place] [address] 16655 Lymphocytes (Bld) [#/Vol] 0.6 10*3/uL Low 1.0-3.5 [facility] Comment on above: Performed By: #### C BCA, CMP, 2156-, 35982-1, 24340-7, 14819-0, PINR, 23524-2, 2639-3 #### [facility] ([id number]) [address] [place] [address] 21339 Lymphocytes/100 WBC (Bld) 4.6 % Normal [facility] Comment on above: Performed By: #### C BCA, CMP, 2156-6, 10083-5, 99405-1, 38435-5, PINR, 32548-8, 2639-3 #### [facility] ([id number]) [address] [place] [address] 12993 MCH (RBC) [Entitic mass] 28.0 pg Normal 27-34 [facility] Comment on above: Performed By: #### C BCA, CMP, 2156-6, 50389-8, 18884-8, 88001-0, PINR, 66461-7, 2639-3 #### [facility] ([id number]) [address] [place] [address] 94724 MCHC (RBC) [Mass/Vol] 33.6 g/dL Normal 32-36 [facility] Comment on above: Performed By: #### C BCA, CMP, 2157-6, 35611-9, 51356-3, 14421-7, PINR, 54479-9, 2639-3 #### [facility] ([id number]) [address] [place] [address] 98359 MCV (RBC) [Entitic vol] 83 fL Normal 80-100 [facility] Comment on above: Performed By: #### C BCA, CMP, 7-6, 77370-5, 58059-1, 39739-8, PINR, 47918-9, 2639-3 #### [facility] ([id number]) [address] [place] [address] 46993 Monocytes (Bld) [#/Vol] 1.4 10*3/uL High 0-0.9 [facility] Comment on above: Performed By: #### C BCA, CMP, 2156-6, 05899-1, 93681-5, 33618-4, PINR, 75483-9, 2639-3 #### [facility] ([id number]) [address] [place] [address] 80635 Monocytes/100 WBC (Bld) 9.9 % Normal [facility] Comment on above: Performed By: #### C BCA, CMP, 7-6, 53711-3, 83650-8, 87973-1, PINR, 04378-5, 2639-3 #### [facility] ([id number]) [address] [place] [address] 65237 Neutrophils/100 WBC (Bld) 85.2 % Normal [facility] Comment on above: Performed By: #### C BCA, CMP, 2157-6, 55660-0, 10995-7, 21154-8, PINR, 19294-3, 2639-3 #### [facility] ([id number]) [address] [place] [address] 02133 Platelet mean volume (Bld) [Entitic vol] 9.0 fL Normal 7-12 [facility] Comment on above: Performed By: #### C BCA, CMP, 7-6, 20608-5, 38605-1, 43357-2, PINR, 58178-1, 2639-3 #### [facility] ([id number]) [address] [place] [address] 77498 Platelets (Bld) [#/Vol] 239 10*3/uL Normal 150-450 [facility] Comment on above: Performed By: #### C BCA, CMP, 7-6, 32998-0, 13985-9, 42595-3, PINR, 37805-6, 2639-3 #### [facility] ([id number]) [address] [place] [address] 77636 RBC COUNT 4.83 X10E12/L Normal 3.80-5.20 [facility] Comment on above: Performed By: #### C BCA, CMP, 7-6, 77242-1, 79841-4, 90208-3, PINR, 69549-1, 2639-3 #### [facility] ([id number]) [address] [place] [address] 99680 WBC (Bld) [#/Vol] 14.2 10*3/uL High 4.0-11.0 [facility] Comment on above: Performed By: #### C BCA, CMP, 2156-6, 81144-9, 72094-3, 59378-2, PINR, 47948-9, 2639-3 #### [facility] ([id number]) [address] [place] [address] 89599 CK [Catalytic activity/Vol]o n 08-28-2024 CPK 4648 U/L High 24-170 [facility] Comment on above: Performed By: #### C BCA, CMP, 2157-6, 77161-9, 17761-8, 42519-3, PINR, 98062-6, 2639-3 #### [facility] ([id number]) [address] [place] [address] 90157 CPK 3034 U/L High 24-170 [facility] Comment on above: Performed By: #### C BCA, CMP, 2157-6, 20158-4, 84405-2, 17267-3, PINR, 45821-9, 2639-3 #### [facility] ([id number]) [address] [place] [address] 51201 COMPREHENSIVE METABOLIC PANE Antoni 08-28-2024 Albumin [Mass/Vol] 3.5 g/dL Normal 3.2-5.3 [facility] Comment on above: Performed By: #### C BCA, CMP, 7-6, 01508-0, 22933-5, 52131-0, PINR, 56853-5, 2639-3 #### [facility] ([id number]) [address] [place] [address] 72645 ALP [Catalytic activity/Vol] 86 U/L Normal 39-130 [facility] Comment on above: Performed By: #### C BCA, CMP, 7-6, 35354-7, 75421-6, 01386-4, PINR, 74788-6, 2639-3 #### [facility] ([id number]) [address] [place] [address] 09956 ALT [Catalytic activity/Vol] 32 U/L High 0-31 [facility] Comment on above: Performed By: #### C BCA, CMP, 2157-6, 72358-7, 15166-2, 01821-3, PINR, 83375-0, 2639-3 #### [facility] ([id number]) [address] [place] [address] 90911 Anion gap [Moles/Vol] 10 mmol/L Normal 5-15 [facility] Comment on above: Performed By: #### C BCA, CMP, 7-6, 06286-8, 70018-9, 47660-8, PINR, 47171-6, 2639-3 #### [facility] ([id number]) [address] [place] [address] 96256 AST [Catalytic activity/Vol] 62 U/L High 0-41 [facility] Comment on above: Performed By: #### C BCA, CMP, 2156-6, 59888-8, 02393-5, 20800-1, PINR, 05823-5, 2639-3 #### [facility] ([id number]) [address] [place] [address] 11237 Bilirubin [Mass/Vol] 0.6 mg/dL Normal 0.3-1.2 [facility] Comment on above: Performed By: #### C BCA, CMP, 2156-6, 03457-1, 32475-3, 03737-9, PINR, 91240-7, 2639-3 #### [facility] ([id number]) [address] [place] [address] 33322 Calcium [Mass/Vol] 9.4 mg/dL Normal 8.5-10.5 [facility] Comment on above: Performed By: #### C BCA, CMP, 2156-6, 47400-7, 83278-1, 71286-4, PINR, 81367-6, 2639-3 #### [facility] ([id number]) [address] [place] [address] 67520 Chloride [Moles/Vol] 107 mmol/L Normal 98-109 [facility] Comment on above: Performed By: #### C BCA, CMP, 2156-6, 47826-6, 28255-6, 72804-7, PINR, 65357-6, 2639-3 #### [facility] ([id number]) [address] [place] [address] 00832 CO2 [Moles/Vol] 24 mmol/L Normal 22-32 [facility] Comment on above: Performed By: #### C BCA, CMP, 2156-6, 34877-0, 20762-4, 70658-8, PINR, 19206-1, 2639-3 #### [facility] ([id number]) [address] [place] [address] 09260 Creatinine [Mass/Vol] 1.27 mg/dL High 0.40-1.00 [facility] Comment on above: Result Comment: METH OD TRACEABLE TO IDMS STANDARD Performed By: #### C BCA, CMP, 2156-10, 38711-8, 05150-7, 91467-9, PINR, 12900-3, 2638-3 #### [facility] ([id number]) [address] [place] [address] 08962 GFR/1.73 sq M.predicted among non-blacks MDRD (S/P/Bld) [Vol rate/Area] 50 mL/min/{1.73_m2} Low >59 [facility] Comment on above: Result Comment: Reported eGFR is based on the CKD-EPI 2020 equation that does not use a race coefficient. Performed By: #### C BCA, CMP, 2156-10, 08912-3, 15125-6, 43162-0, PINR, 02677-5, 2638-3 #### [facility] ([id number]) [address] [place] [address] 93665 Glucose [Mass/Vol] 137 mg/dL High 65-99 [facility] Comment on above: Performed By: #### C BCA, CMP, 2156-6, 59158-7, 16230-8, 22027-6, PINR, 37410-3, 2639-3 #### [facility] ([id number]) [address] [place] [address] 79059 Potassium [Moles/Vol] 3.8 mmol/L Normal 3.5-5.0 [facility] Comment on above: Performed By: #### C BCA, CMP, 2157-6, 80174-7, 45700-6, 39417-5, PINR, 07579-9, 2639-3 #### [facility] ([id number]) [address] [place] [address] 66029 Protein [Mass/Vol] 8.1 g/dL High 6.0-8.0 [facility] Comment on above: Performed By: #### C BCA, CMP, 2157-6, 59259-1, 99659-3, 23014-4, PINR, 30500-4, 2639-3 #### [facility] ([id number]) [address] [place] [address] 74861 Sodium [Moles/Vol] 141 mmol/L Normal 134-146 [facility] Comment on above: Performed By: #### C BCA, CMP, 2157-6, 40932-3, 85708-3, 75382-7, PINR, 16905-4, 2639-3 #### [facility] ([id number]) [address] [place] [address] Urea nitrogen [Mass/Vol] 15 mg/dL Normal 5-23 [facility] Comment on above: Performed By: #### C BCA, CMP, 2157-6, 47863-5, 31580-4, 77650-0, PINR, 30573-6, 2639-3 #### [facility] ([id number]) [address] [place] [address]A CHESTon 08-28-2024 CT CTA CHEST [...] for acute or suspicious pathology in the [id number]. The trachea and bronchi are patent. No [...] Saini MD on 08/28/2024 12:40 PM Normal [facility] Fibrin D-dimer DDU (PPP) [Ma ss/Vol]on 08-28-2024 D DIMER 5157 ng/mL DDU High <255 [facility] Comment on above: Result Comment: Results [...] Performed By: #### C BCA, CMP, 2157-6, 26097-7, 87356-4, 62633-1, PINR, 19216-9, 2639-3 #### [facility] ([id number]) [address] [place] [address], [place] [address] MAGNESIUMon 08-28-2024 Magnesium [Mass/Vol] 1.9 mg/dL Normal 1.8-2.6 [facility] Comment on above: Performed By: #### C BCA, CMP, 2156-6, 83914-7, 17485-7, 34752-0, PINR, 88808-2, 2639-3 #### [facility] ([id number]) [address] [place] [address] Magnesium [Mass/Vol] 2.0 mg/dL Normal 1.8-2.6 [facility] Comment on above: Performed By: #### C BCA, CMP, 2156-10, 00017-0, 63562-1, 03162-0, PINR, 97205-6, 2639-3 #### [facility] ([id number]) [address] [place] [address] Myoglobin [Mass/Vol]on 08-28 SERUM MYOGLOBIN 1035.9 ng/mL High 14.3-65.8 [facility] Comment on above: Performed By: #### C BCA, CMP, 2156-10, 19179-9, 11320-9, 22528-1, PINR, 60530-5, 2639-3 #### [facility] ([id number]) [address] [place] [address] SERUM MYOGLOBIN 4039.8 ng/mL High 14.3-65.8 [facility] Comment on above: Performed By: #### C BCA, CMP, 2156-10, 03293-4, 75976-2, 54617-6, PINR, 12737-4, 2639-3 #### [facility] ([id number]) [address] [place] [address] POTASSIUMon 08-28-2024 Potassium [Moles/Vol] 3.2 mmol/L Low 3.5-5.0 [facility] Comment on above: Performed By: #### C BCA, CMP, 2156-10, 45953-3, 00269-1, 20623-4, PINR, 28059-1, 2639-3 #### [facility] ([id number]) [address] [place] [address] PROTIME AND INRon 08-28-2024 INR Coag (PPP) [Relative time] 1.3 {INR} High 0.9-1.2 [facility] Comment on above: Performed By: #### C BCA, CMP, 2157-6, 34082-5, 83960-0, 06072-3, PINR, 63026-2, 2639-3 #### [facility] ([id number]) [address] [place] [address] PT Coag (PPP) [Time] 15.0 s High 9.8-13.2 [facility] Comment on above: Result Comment: NEW REFERENCE RANGE Performed By: #### C BCA, CMP, 2157-6, 90238-4, 47262-3, 70945-8, PINR, 04419-7, 2639-3 #### [facility] ([id number]) [address] [place] [address] SARS/FLU A+B/RSV by NAAT/Mol ecularon 08-28-2024 SARS/FLU [...] operators who are performing tests using either [employer] or [employer] systems and is limited to laboratories that [...] repeat. Fact Sheet for Healthcare Providers: https://www.fda.gov/m edia/913351/download Fact Sheet for Patients: https://www.fda.gov/m edia/028488/download Normal [facility] Comment on above: Performed By: #### C BCA, CMP, 2157-6, 12453-9, 74686-3, 61655-2, PINR, 29786-9, 2639-3 #### [facility] ([id number]) [address] [place] [address], [place] [address] Troponin I.cardiac High sens itivity method [Mass/Vol]on 08-28-2024 3 HOUR TROP I, HIGH SENSITIVITY 42 ng/L High <16 [facility] Comment on above: Result Comment: Elevations of hs-Troponin may be due to causes other than myocardial ischemia. Recommend serial hs-Troponin testing be performed. For the initial evaluation and management of chest pain patients, refer to the algorithms linked below. Emergency Patient: [email or web address] Inpatient: [email or web address] Performed By: #### C BCA, CMP, 2157-6, 93688-0, 17981-1, 82940-6, PINR, 59398-1, 2639-3 #### [facility] ([id number]) [address] [place] [address] 1 HOUR TROP I, HIGH SENSITIVITY 34 ng/L High <16 [facility] Comment on above: Result Comment: Elevations of hs-Troponin may be due to causes other than myocardial ischemia. Recommend serial hs-Troponin testing be performed. For the initial evaluation and management of chest pain patients, refer to the algorithms linked below. Emergency Patient: [email or web address] Inpatient: [email or web address] Performed By: #### C BCA, CMP, 2157-6, 45809-8, 12431-7, 72924-0, PINR, 72926-3, 2639-3 #### [facility] ([id number]) [address] [place] [address] TROPONIN I, HIGH SENSITIVITY 29 ng/L High <16 [facility] Comment on above: Result Comment: Elevations of hs-Troponin may be due to causes other than myocardial ischemia. Recommend serial hs-Troponin testing be performed. For the initial evaluation and management of chest pain patients, refer to the algorithms linked below. Emergency Patient: [email or web address] Inpatient: [email or web address] Performed By: #### C TEDDY, [facility], 2157-6, 61993-2, 48457-6, 88440-9, PINR, 88901-9, 2639-3 #### [facility] ([id number]) [address] [place] [address] XR CHEST 1 VWon 08-28-2024 XR CHEST 1 VW XR CHEST 1 VW Portable chest: HISTORY: Cough and weakness. Single view of the chest was obtained. Cardiac and mediastinal contours are within normal limits. Lungs clear. There is no vascular congestion or effusion. IMPRESSION: Negative exam. Finalized by Gian Gilbert MD on 08/28/2024 10:58 AM Normal [facility] aPTT Coag (PPP) [Time]on aPTT Coag (Bld) [Time] 31 s Normal 26-37 [facility] Comment on above: Result Comment: NEW REFERENCE RANGE Performed By: #### C BCA, [facility], 2157-6, 66896-1, 09581-3, 35135-3, PINR, 73853-8, 2639-3 #### [facility] ([id number]) [address] [place] [address] Urine Cultureon 08-22-2024 Bacteria identified Cx Nom (U) ORGANISM: Proteus mirabilis (O:PROMIR) [place] Count >100,000 Aerobic ROSE Charge (NMIC56) ---- [...] RESISTANT TO ALL B-LACTAM DRUGS. PERFORMED BY: [place] [address] PATHOLOGIST DATA PROCESSING SYSTEMS CONSULTANT CLAIRE PATEL M.D. Normal [facility] Comment on above: Performed By: #### C UU #### [address] Urine cultureOrdered By: Julio Gruber on 08-22-2024 Bacteria identified Cx Nom (U) Abnormal [facility] Bacteria identified Cx Nom (U) Proteus mirabilis Abnormal [facility] MM TOMOSYNTHESIS SCREENING B Ion 06-30-2024 [place] [address] Mammography Report Signed Patient: ANUPAMA VASQUEZ MR#: [id number] : 1970 Acct:[id number] Age/Sex: 54 / F ADM Date: 06/30/24 Loc: MAMMO Attending Dr: Fred Gracia NP Ordering Physician: Fred Gracia NP Results: Date of Service: 06/30/24 Follow Up: Procedure(s): MM tomosynthesis screening BI Accession Number(s): [id number] cc: Fred Gracia NP Patient Name: ANUPAMA VASQUEZ MR#: [id number] : 1970 Exam Date: 06/30/2024 Ordering Doctor: [...] throat/lung cancer at age 56. LOCATION: [facility] BREAST COMPOSITION: There are scattered areas [...] Signed By: 06/30/24 1133 DD/ 1132 TD/TT: Lithographic Retoucher Apprentice: [facility] Radiology, Radiologist, - 06/30/2024 [place] [address] Mammography Report Signed Patient: ANUPAMA VASQUEZ MR#: [id number] : 1970 Acct:[id number] Age/Sex: 54 / F ADM Date: 06/30/24 Loc: MAMMO Attending Dr: Fred Gracia NP Ordering Physician: Fred Gracia NP Results: Date of Service: 06/30/24 Follow Up: Procedure(s): MM tomosynthesis screening BI Accession Number(s): [id number] cc: Fred Gracia NP Patient Name: ANUPAMA VASQUEZ MR#: [id number] : 1970 Exam Date: 06/30/2024 Ordering Doctor: [...] throat/lung cancer at age 56. LOCATION: [facility] BREAST COMPOSITION: There are scattered areas [...] Signed By: 06/30/24 1133 DD/ 1132 TD/TT: Lithographic Retoucher Apprentice: [employer] Radiology Study observation (narrative) [facility] MM TOMOSYNTHESIS SCREENING B IOrdered By: Radiologist Radiology on 06-30-2024 [employer] Work Phone: No Panel Informationon 04-27 Alona [...] to verify the correct patient, procedure, equipment, support manager and site/side marked as required. Patient was prepped and draped in the usual sterile fashion. [employer] XR Shoulder - left 2 Viewson 02-25-2024 Imaging Result: Two views, AP and Lateral, in the office taken today saved to the permanent record shows post surgical change with acromioplasty/partial distal clavulectomy with appropriate coplaning. No acute fracture, dislocation, tumor or infection seen. [facility] Study observation (narrative) [facility] Main OR Intraoperative Recor don 02-11-2024 Main OR Intraoperative Record Main OR Intraoperative Record IntraOp Document Type FT Summary Primary Physician: Eliazar Brooks DO Finalized Date/Time: 02/11/24 14:09:06 Pt. Name: ANUPAMA VASQUEZ /Sex: 1970 Female Med Rec #: [id number] Physician: Eliazar Brooks DO Financial #: [id number] Pt. Type: A Room/Bed: Admit/Disch: 02/10/24 11:39:41 [...] 2 Entry 3 Case Attendee Cynthia BROWN, BOTTOM PAINTER, Berry Eliazar Brooks DO TOBACCO CHECKOUT CLERK, Marlyn Campuzano Role Performed BOTTOM PAINTER Surgeon - Primary Scrub - Primary Time [...] Attendee Adams Pak Laura C Role Performed River Driver - Primary Scrub - Primary Time In [...] Yes PreOp Antibiotic Yes Given Time Out Mitti DNP, BOTTOM PAINTER, Bhatt Time Out Complete 02/10/24 14:35:00 Participants N.Zbigniew DO, Michael T, Wilhelm CST, Macie C, Adams Pak, Naomi [...] and tissue Entry 1 Skin Integrity Intact, [place], Warm, & Skin Abnormality No Dry Outcomes Met? Yes Last Modified By: Adams Pak 02/10/24 15:02:50 Post-Care Text: The patient is free from signs and symptoms of injury caused by extraneous objects Patient Positioning FT Pre-Care Text: Identifies physical alterations that require additional precautions for procedure-specific positioning, verifies presence of prosthetics (more content not included)... Normal [facility] Operative Reporton Operative Report Operative Report SURGERY DATE: 02/10/2024 NURSE PRACTITIONER MANAGER: Marlyn Kate C.F.A. PREOPERATIVE DIAGNOSIS: Left [...] a lateral portal incision utilizing a 90-degree Munday wand as well as 5.0 bone cutter, [...] Satisfactory Eliazar Brooks D.O. ca Dictated: 02/10/2024 [id number] Transcribed: 02/10/2024 [facility] Comment on above: Result Comment: Elec tronically [...] scheduled appointment Call for any problems. Where: [address] [place] [address] [facility] (1) Medications What How Much [...] needed for shoulder surgical pain. Pickup at [facility] Unchanged ergocalciferol (Vitamin D) 1,200 International [...] bedtime) as needed for Sleep Pharmacy Information [facility]: [address] [place], [place] [phone] Test Results No qualifying data available. Allergies No Known Allergies Problems Ongoing - Any problem that you are currently receiving treatment for. Menopause Mini stroke MS - Multiple sclerosis Smoker Education Materials [place], [place] [facility] AFTER YOUR SHOULDER ARTHROSCOPY [...] have any (more content not included)... Normal [facility] Comment on above: Result Comment: Elec tronically Signed By: Aime ROSA, Brigida Lantigua\.br\Date and Time Signed: 02/10/24 15:46 EDT Main OR PACU I Recordon 01-19 Main OR PACU I Record Main OR PACU I Rec ord PACU Phase I Document Type FT Summary Primary Physician: Eliazar Brooks DO Finalized Date/Time: 02/10/24 16:23:54 Pt. Name: PEDROANUPAMA/Sex: 1970 Female Med Rec #: [id number] Physician: Eliazar Brooks DO Financial #: [id number] Pt. Type: A Room/Bed: Admit/Disch: 02/10/24 11:39:41 [...] By: Meera Rose RN 02/10/24 16:23 Normal [facility] Main OR PACU II Recordon Main OR PACU II Record Main OR PACU II Record PACU Phase II Document Type FT Summary Primary Physician: Eliazar Brooks DO Finalized Date/Time: 02/10/24 18:07:34 Pt. Name: PEDROANUPAMA/Sex: 1970 Female Med Rec #: [id number] Physician: Eliazar Brooks DO Financial #: [id number] Pt. Type: A Room/Bed: [facility] Admit/Disch: 02/10/24 11:39:41 - Institution: Case Times [...] Signed By: Sherron Deleon RN 02/10/24 18:07 [facility] Main OR Preoperative Recordo n 02-10-2024 Main OR Preoperative Record Main OR Preoperative Record PreOp Document Type FT Summary Primary Physician: Eliazar Brooks DO Finalized Date/Time: 02/10/24 15:51:36 Pt. Name: ANUPAMA VASQUEZ /Sex: 1970 Female Med Rec #: [id number] Physician: Eliazar Brooks DO Financial #: [id number] Pt. Type: A Room/Bed: Admit/Disch: 02/10/24 11:39:41 [...] 02/10/24 14:59 Adams Pak 02/10/24 15:51 Normal [facility] Proceduralon 02-10-2024 Procedural Procedural Patient: ANUPAMA [...] Using maximal sterile barrier technique per current CMS guidelines including hand hygeine, Guidance (Ultrasound used [...] Cynthia CRNA under Dr Vega's supervision.. Normal [facility] Inpatient Patient Summaryon 02-06-2024 Inpatient Patient Summary Inpatient Patient Summary [address] [address] [facility] Clinical Discharge Instructions PERSON INFORMATION Name: ANUPAMA VASQUEZ [facility]#:[id number] PHYSICIANS Admitting Physician: Eliazar Brooks DO Attending Physician: Eliazar Brooks DO PCP: ROCK CESPEDES, AUGUST L Discharge Diagnosis: Impingement of left shoulder Comment: PATIENT EDUCATION INFORMATION Instructions: Zbigniew - After Your Shoulder Arthroscopy (Revised 06/17/14) (CUSTOM) Medication Leaflets: Follow up: With: Address: When: Eliazar Brooks [address] [place] [address] [facility] (1) Comments: Keep scheduled appointment Type Location Start [facility] Surgery [facility] 02/10/2024 2:30 PM [...] Mouth 2 times a day. Comment: Normal [facility] Outpatient Surgery Discharge Instructionon 02-06-2024 Outpatient Surgery Discharge Instruction Outpatient Surgery Discharge Instruction [place] [id number] Patient Discharge Instructions PERSON INFORMATION Name: RADHA [...] Follow up: With: Address: When: Eliazar Brooks [address] [place], [place] [id number] Business (1) Comments: Keep scheduled appointment Type Location Start [facility] Surgery [facility] 02/10/2024 2:30 PM [...] to serve you. Thank you for choosing [facility] HERE ARE THE MEDICATION CHANGES [...] times a day. PATIENT EDUCATION INFORMATION Instructions: [place], [place] [facility] AFTER YOUR SHOULDER ARTHROSCOPY [...] medication as (more content not included)... Normal [facility] XR Chest 2 Viewson 4 XR [...] mGy = . DAP = . Normal [facility] BMPon 02-05-2024 Anion gap [Moles/Vol] 11 mmol/L Normal 6-[address] [facility] Comment on above: Performed By: #### 2 206761 #### [facility] [address] [place] [address] Calcium [Mass/Vol] 9.4 mg/dL Normal 8.9-11.1 [facility] Comment on above: Performed By: #### 2 256739 #### [facility] [address] [place] [address] Chloride [Moles/Vol] 104 mmol/L Normal 101-111 [facility] Comment on above: Performed By: #### 2 243193 #### [facility] [address] [place] [address] CO2 [Moles/Vol] 31 mmol/L Normal 21-31 [facility] Comment on above: Performed By: #### 2 564913 #### [facility] [address] [place] [address] Creatinine [Mass/Vol] 0.9 mg/dL Normal 0.5-1.[address] [facility] Comment on above: Performed By: #### 2 826164 #### [facility] [address] [place] [address] Glucose [Mass/Vol] 93 mg/dL Normal 55-199 [facility] Comment on above: Performed By: #### 2 486090 #### [facility] [address] [place] [address] Potassium [Moles/Vol] 4.1 mmol/L Normal 3.5-5.[address] [facility] Comment on above: Performed By: #### 2 997640 #### [facility] [address] [place] [address] Sodium [Moles/Vol] 142 mmol/L Normal 135-145 [facility] Comment on above: Performed By: #### 2 874740 #### [facility] [address] [place] [address] Urea nitrogen [Mass/Vol] 11 mg/dL Normal 5-21 [facility] Comment on above: Performed By: #### 2 221786 #### [facility] [address] [place] [address] Urea nitrogen/Creatinine [Mass ratio] 12 No Units Normal 10-20 [facility] Comment on above: Performed By: #### 2 023906 #### [facility] [address] [place] [address] CBC w/ Auto Diffon 4 Basophils/100 WBC (Bld) 0.6 % Normal 0.0-2.0 [facility] Comment on above: Performed By: #### 2 816634 #### [facility] [address] [place] [address] Basophils/Leukocytes Auto (Bld) [Pure # fraction] 0.0 E9/L Normal 0.0-0.2 [facility] Comment on above: Performed By: #### 2 479675 #### [facility] [address] [place] [address] Eosinophils (Bld) [#/Vol] 0.1 E9/L Normal 0.0-0.5 [facility] Comment on above: Performed By: #### 2 073076 #### [facility] [address] [place] [address] Eosinophils/100 WBC (Bld) 1.2 % Normal 0.0-8.0 [facility] Comment on above: Performed By: #### 2 697245 #### [facility] [address] [place] [address] Erythrocyte distribution width (RBC) [Ratio] 17.5 % High 10.9-14.2 [facility] Comment on above: Performed By: #### 2 552455 #### [facility] [address] [place] [address] Hematocrit (Bld) [Volume fraction] 37.9 % Normal 34.0-46.0 [facility] Comment on above: Performed By: #### 2 741801 #### [facility] [address] [place] [address] Hemoglobin (Bld) [Mass/Vol] 12.6 g/dL Normal 12.0-16.0 [facility] Comment on above: Performed By: #### 2 641639 #### [facility] [address] [place] [address] Lymphocytes (Bld) [#/Vol] 0.8 E9/L Low 1.0-4.0 [facility] Comment on above: Performed By: #### 2 990059 #### [facility] [address] [place] [address] Lymphocytes/100 WBC (Bld) 11.1 % Low 14.0-50.0 [facility] Comment on above: Performed By: #### 2 942675 #### [facility] [address] [place] [address] MCH (RBC) [Entitic mass] 27.8 pg Normal 27.0-34.0 [facility] Comment on above: Performed By: #### 2 492379 #### [facility] [address] [place] [address] MCHC (RBC) [Mass/Vol] 33.2 g/dL Normal 31.4-36.[address] [facility] Comment on above: Performed By: #### 2 660473 #### [facility] [address] [place] [address] MCV (RBC) [Entitic vol] 83.9 fL Normal 80.0-100.0 [facility] Comment on above: Performed By: #### 2 988039 #### [facility] [address] [place] [address] Monocytes (Bld) [#/Vol] 0.8 E9/L Normal 0.2-1.0 [facility] Comment on above: Performed By: #### 2 584856 #### [facility] [address] [place] [address] Neutrophils (Bld) [#/Vol] 5.4 E9/L Normal 2.0-7.5 [facility] Comment on above: Performed By: #### 2 410708 #### [facility] [address] [place] [address] Neutrophils/100 WBC (Bld) 76.4 % High 36.0-75.0 [facility] Comment on above: Performed By: #### 2 702974 #### [facility] [address] [place] [address] Platelet 195.0 E9/L Normal 150.0-500. 0 [facility] Comment on above: Performed By: #### 2 297272 #### [facility] [address] [place] [address] Platelet mean volume (Bld) [Entitic vol] 10.4 fL Normal 6.4-10.8 [facility] Comment on above: Performed By: #### 2 114279 #### [facility] [address] [place] [address] RBC (Bld) [#/Vol] 4.5 E12/L Normal 4.3-5.9 [facility] Comment on above: Performed By: #### 2 896113 #### [facility] [address] [place] [address] WBC corrected for nucl RBC Auto (Bld) [#/Vol] 7.1 E9/L Normal 4.0-11.0 [facility] Comment on above: Performed By: #### 2 691694 #### [facility] [address] [place] [address] eGFRon 02-05-2024 eGFR 75 mL/min/1.73 m2 Normal >=59 [facility] Comment on above: Order Comment: Order added by Discern Expert. Performed By: #### 1 4777535 ####[facility] [address] [place] [address] [facility] UA (CLEAN/CATCH) [facility] IF INDICATEon 01-23-2024 BILIRUBIN URINE [...] CNPNon 12-19-2023 CNPN Telephone (MARK) ANUPAMA VASQUEZ ([id number]) 1970 F Date Time Provider Department 12/19/23 NURSE [facility] During your visit today, we recorded the following information about you: Teagan MoniqueShe 12/19/2023 8:24 AM Signed Called patient to [...] Research exam [Z00.6] 11/27/2012 Encounter Status:Closed by TEAGANSHE KHALIL on 12/19/23 Normal [facility] MR SHOULDER LEFT WO IV CONTR [...] Previous MRI 7-8 years ago So 08-21-2023 [facility] Tele[facility] ([facility]) ANUPAMA VASQUEZ ([id number]) 1970 F Date Time Provider Department 08/21[facility]23 [facility] your visit today, we recorded the following information about you: Renuka Ellison 08/21/2023 4:19 PM Signed [place] Call Name of caller : Anupama Vasquez Relationship to patient: Self Return call phone number : [phone] Reason for call : Other : Brief [...] of spine [M48.02] Order(s):CONSULT TO SPINE SURGERY [[id number]] Order #: [id number]: 1 FUTURE Prescriptions as of 08/22/2023 - [...] Encounter Status:Closed by ELIZABETH VICTORIA on 08/22/23 [facility] 07-15-2023 [facility] Telephone ([facility]) ANUPAMA VASQUEZ ([id number]) 1970 F Date Time Provider Department 07/15/23 [facility] During your visit today, we recorded [...] Called patient, no answer. Message left indicating [employer] message would be sent with reason for [...] sclerosis (HCC) [G35] Order(s):MRI BRAIN WO/W IVCON [[id number]] Order #: [id number] FUTURE iv contrast (will be provided with [...] Encounter Status:Closed by ELIZABETH VICTORIA on 07/17/23 [facility] CNOVon 07-10-2023 CNOV Office Visit (PAINLN ) ANUPAMA VASQUEZ ([id number]) 1970 F Date Time Provider Department 07/10/23 6:00 PM [place] [place] PAINLN During your visit today, we recorded the following information about you: Pulse Weight Height 89/minute 134.3 kg 1.676 m [place], DO 07/12/2023 11:26 AM Signed [facility] Initial Evaluation July 10, 2023 This appointment was requested by Jessica Clarke PA-C, for my medical opinion regarding the evaluation and management of the patient's Anupama Vasquez problems, and my final recommendations will be communicated to the requesting health care provider by way of the shared medical record for internal providers or letter via the [employer] for external providers. SUBJECTIVE: Anupama Vasquez a 53 year old presents to [facility] Pain [facility] Department, accompanied by self only, [...] PT several years ago (+) relief Chris [place] Alcohol Abuse - No Drug Abuse - [...] No history of dysuria, frequency or incontinence DIRECTOR OF STUDENT AID: Negative for abnormal vaginal bleeding, abnormal vaginal discharge MUSCULOSKELETAL: Negative for joint pain or swelling, back pain or musc (more content not included)... Normal [facility] CBC W Auto Differential pane l (Bld)on 05-22-2023 Basophils (Bld) [#/Vol] 0.05 10*3/uL Normal <0.11 [facility] Comment on above: Order Comment: Speci men Type: BLOOD SPECIMENOrdering Facility: [facility] Address: [address] [place] [address] Performed By: #### 5 7021-8 ####[facility] LABCLIA [id number] [place] [address] [place] Basophils/100 WBC (Bld) 0.5 % Normal [facility] Comment on above: Order Comment: Speci men Type: BLOOD SPECIMENOrdering Facility: [facility] Address: [address] [place] [address] Performed By: #### 5 7021-8 ####[facility] LABCLIA [id number] [place] [address] [place] Differential cell count method Nom (Bld) Auto Normal [facility] Comment on above: Order Comment: Speci men Type: BLOOD SPECIMENOrdering Facility: [facility] Address: [address] [place] [address] Performed By: #### 5 7021-8 ####[facility] LABCLIA [id number] [place] [address] [place] Eosinophils (Bld) [#/Vol] 0.19 10*3/uL Normal <0.46 [facility] Comment on above: Order Comment: Speci men Type: BLOOD SPECIMENOrdering Facility: [facility] Address: [address] [place] [address] Performed By: #### 5 7021-8 ####[facility] LABCLIA [id number] [place] [address] [place] Eosinophils/100 WBC (Bld) 2.1 % Normal [facility] Comment on above: Order Comment: Speci men Type: BLOOD SPECIMENOrdering Facility: [facility] Address: [address] [place] [address] Performed By: #### 5 7021-8 ####[facility] LABCLIA [id number] [place] [address] [place] Erythrocyte distribution width (RBC) [Ratio] 15.5 % High 11.5-15.0 [facility] Comment on above: Order Comment: Speci men Type: BLOOD SPECIMENOrdering Facility: [facility] Address: [address] [place] [address] Performed By: #### 5 7021-8 ####[facility] LABIA [id number] [place] [address] [place] Hematocrit (Bld) [Volume fraction] 42.1 % Normal 36.0-46.0 [facility] Comment on above: Order Comment: Speci men Type: BLOOD SPECIMENOrdering Facility: [facility] Address: [address] [place] [address] Performed By: #### 5 7021-8 ####[facility] LABIA [id number] [place] [address] [place] Hemoglobin (Bld) [Mass/Vol] 12.9 g/dL Normal 11.5-15.5 [facility] Comment on above: Order Comment: Speci men Type: BLOOD SPECIMENOrdering Facility: [facility] Address: [address] [place] [address] Performed By: #### 5 7021-8 ####[facility] LABIA [id number] [place] [address] [place] Immature granulocytes (Bld) [#/Vol] 0.04 10*3/uL Normal <0.10 [facility] Comment on above: Order Comment: Speci men Type: BLOOD SPECIMENOrdering Facility: [facility] Address: [address] [place] [address] Performed By: #### 5 7021-8 ####[facility] LABIA [id number] [place] [address] [place] Immature granulocytes/100 WBC (Bld) 0.4 % Normal [facility] Comment on above: Order Comment: Speci men Type: BLOOD SPECIMENOrdering Facility: [facility] Address: [address] [place] [address] Performed By: #### 5 7021-8 ####[facility] LABCLIA [id number] [place] [address] [place] Lymphocytes (Bld) [#/Vol] 0.82 10*3/uL Low 1.00-4.00 [facility] Comment on above: Order Comment: Speci men Type: BLOOD SPECIMENOrdering Facility: [facility] Address: [address] [place] [address] Performed By: #### 5 7021-8 ####[facility] LABCLIA [id number] [place] [address] [place] Lymphocytes/100 WBC (Bld) 9.0 % Normal [facility] Comment on above: Order Comment: Speci men Type: BLOOD SPECIMENOrdering Facility: [facility] Address: [address] [place] [address] Performed By: #### 5 7021-8 ####[facility] LABIA [id number] [place] [address] [place] MCH (RBC) [Entitic mass] 26.9 pg Normal 26.0-34.0 [facility] Comment on above: Order Comment: Speci men Type: BLOOD SPECIMENOrdering Facility: [facility] Address: [address] [place] [address] Performed By: #### 5 7021-8 ####[facility] LABCLIA [id number] [place] [address] [place] MCHC (RBC) [Mass/Vol] 30.6 g/dL Normal 30.5-36.0 [facility] Comment on above: Order Comment: Speci men Type: BLOOD SPECIMENOrdering Facility: [facility] Address: [address] [place] [address] Performed By: #### 5 7021-8 ####[facility] LABCLIA [id number] [place] [address] [place] MCV (RBC) [Entitic vol] 87.9 fL Normal 80.0-100.0 C [facility] Comment on above: Order Comment: Speci men Type: BLOOD SPECIMENOrdering Facility: [facility] Address: [address] [place] [address] Performed By: #### 5 7021-8 ####[facility] LABCLIA [id number] [place] [address] [place] Monocytes (Bld) [#/Vol] 0.93 10*3/uL High <0.87 [facility] Comment on above: Order Comment: Speci men Type: BLOOD SPECIMENOrdering Facility: [facility] Address: [address] [place] [address] Performed By: #### 5 7021-8 ####[facility] LABCLIA [id number] [place] [address] [place] Monocytes/100 WBC (Bld) 10.2 % Normal C [facility] Comment on above: Order Comment: Speci men Type: BLOOD SPECIMENOrdering Facility: [facility] Address: [address] [place] [address] Performed By: #### 5 7021-8 ####[facility] LABCLIA [id number] [place] [address] [place] Neutrophils (Bld) [#/Vol] 7.07 10*3/uL Normal 1.45-7.50 [facility] Comment on above: Order Comment: Speci men Type: BLOOD SPECIMENOrdering Facility: [facility] Address: [address] [place] [address] Performed By: #### 5 7021-8 ####[facility] LABCLIA [id number] [place] [address] [place] Neutrophils/100 WBC (Bld) 77.8 % Normal [facility] Comment on above: Order Comment: Speci men Type: BLOOD SPECIMENOrdering Facility: [facility] Address: [address] [place] [address] Performed By: #### 5 7021-8 ####[facility] LABIA [id number] [place] [address] [place] Nucleated RBC (Bld) [#/Vol] 10*3/uL Normal <0.01 [facility] Comment on above: Order Comment: Speci men Type: BLOOD SPECIMENOrdering Facility: [facility] Address: [address] [place] [address] Performed By: #### 5 7021-8 ####[facility] LABIA [id number] [place] [address] [place] Nucleated RBC/100 WBC (Bld) [Ratio] 0.0 /100 WBC Normal [facility] Comment on above: Order Comment: Speci men Type: BLOOD SPECIMENOrdering Facility: [facility] Address: [address] [place] [address] Performed By: #### 5 7021-8 ####[facility] LABIA [id number] [place] [address] [place] Platelet mean volume (Bld) [Entitic vol] 12.4 fL Normal 9.0-12.7 [facility] Comment on above: Order Comment: Speci men Type: BLOOD SPECIMENOrdering Facility: [facility] Address: [address] [place] [address] Performed By: #### 5 7021-8 ####[facility] LABIA [id number] [place] [address] [place] Platelets (Bld) [#/Vol] 208 10*3/uL Normal 150-400 [facility] Comment on above: Order Comment: Speci men Type: BLOOD SPECIMENOrdering Facility: [facility] Address: [address] [place] [address] Performed By: #### 5 7021-8 ####[facility] LABIA [id number] [place] [address] [id number] [address] [place] RBC (Bld) [#/Vol] 4.79 10*6/uL Normal 3.90-5.20 [facility] Comment on above: Order Comment: Speci men Type: BLOOD SPECIMENOrdering Facility: [facility] Address: [address] [place] [address] Performed By: #### 5 7021-8 ####[facility] LABCLIA [id number] [place] [address] [place] WBC (Bld) [#/Vol] 9.10 10*3/uL Normal 3.70-11.00 [facility] Comment on above: Order Comment: Speci men Type: BLOOD SPECIMENOrdering Facility: [facility] Address: [address] [place] [address] Performed By: #### 5 7021-8 ####[facility] LABCLIA [id number] [place] [address] [place] CD19 ABSOLUTE COUNTon 2023 CD3-CD19+ cells (Bld) [#/Vol] 219 cells/uL Normal 75-660 [facility] Comment on above: Order Comment: Speci men Type: BLOOD SPECIMENOrdering Facility: [facility] Address: [address] [place] [address] Performed By: #### A BS19 ####[facility] LABCLIA [id number] [place] [address] [place] CD3-CD19+ cells/100 cells (Bld) 23 % High 5-22 [facility] Comment on above: Order Comment: Speci men Type: BLOOD SPECIMENOrdering Facility: [facility] Address: [address] [place] [address] Performed By: #### A BS19 ####[facility] LABCLIA [id number] [place] [address] [place] Lymphocytes/100 WBC FC (Bld) Normal [facility] Comment on above: Order Comment: Speci men Type: BLOOD SPECIMENOrdering Facility: [facility] Address: [address] [place] [address] Performed By: #### A BS19 ####[facility] LABALIYA [id number] [address] [id number] [address] [place] CNOVon 05-22-2023 CNOV Office Visit (NTLORA ) ANUPAMA VASQUEZ ([id number]) 1970 F Date Time Provider Department 05/22/23 [...] her tubes tied. Referring Provider: SARTHAK ESCOBAR [[id number]] Allergies As of Date: 05/22/2023 (No Known Allergies) Date Reviewed: 10/11/2022 Reviewed by: Maryam Cabrera, MOE - Fully Assessed Primary Visit Diagnosis:Multiple sclerosis (HCC) [G35] Other Visit Diagnosis:Multiple sclerosis, relapsing-remitting (HCC) [G35] Order(s):TREATMENT PARAMETER-NOT NEEDED [0785564] Order #: [id number]: 1 BCN CD20 NURSING COMMUNICATION [[id number]] Order #: [id number]: 1 BCN NURSING COMMUNICATION [[id number]] Order #: [id number]: 1 CD19 ABSOLUTE COUNT [SQABS19] Order #: [id number] FUTURE [] methylPREDNISolone sod succinate(PF) 100 mg injection (SOLU-Medrol)Disp: Rfl: [] acetaminophen 1,000 mg tab(s) (TYLENOL)Disp: Rfl: [] diphenhydrAMINE 50 mg (BENADRYL)Disp: Rfl: [] ocrelizumab 600 mg in NaCl 0.9% 500 mL (OCREVUS)Disp: Rfl: CBC + DIFF [SQCBCDIF] Order #: [id number]. #:[id number] COMP METABOLIC PANEL [SQCMP] Order #: [id number]. #:[id number] IGG [SQIGG] Order #: [id number]. #:[id number] IGM [SQIGM] Order #: [id number]. #:[id number] CD19 ABSOLUTE COUNT [SQABS19] Order #: [id number]. #:[id number] Prescriptions as of 05/23/2023 - lisinopril (ZESTRIL) [...] Status:Closed by SHE BRAND on 05/22/23 Normal [facility] Comprehensive metabolic 2000 panelon 05-22-2023 Albumin [Mass/Vol] 4.0 g/dL Normal 3.9-4.9 [facility] Comment on above: Order Comment: Speci men Type: BLOOD SPECIMENOrdering Facility: [facility] Address: [address] [place] [address] Performed By: #### 2 4323-8 ####[facility] LABCLIA [id number] [place] [address] [place] ALP [Catalytic activity/Vol] 90 U/L Normal 34-123 [facility] Comment on above: Order Comment: Speci men Type: BLOOD SPECIMENOrdering Facility: [facility] Address: [address] [place] [address] Performed By: #### 2 4323-8 ####[facility] LABCLIA [id number] [place] [address] [place] ALT [Catalytic activity/Vol] 23 U/L Normal 7-38 [facility] Comment on above: Order Comment: Speci men Type: BLOOD SPECIMENOrdering Facility: [facility] Address: [address] [place] [address] Performed By: #### 2 4323-8 ####[facility] LABCLIA [id number] [place] [address] [place] Anion gap [Moles/Vol] 13 mmol/L Normal 9-18 [facility] Comment on above: Order Comment: Speci men Type: BLOOD SPECIMENOrdering Facility: [facility] Address: [address] [place] [address] Performed By: #### 2 4323-8 ####[facility] LABCLIA [id number] [place] [address] [place] AST [Catalytic activity/Vol] 25 U/L Normal 13-35 [facility] Comment on above: Order Comment: Speci men Type: BLOOD SPECIMENOrdering Facility: [facility] Address: [address] [place] [address] Performed By: #### 2 4323-8 ####[facility] LABCLIA [id number] [place] [address] [place] Bilirubin [Mass/Vol] 0.3 mg/dL Normal 0.2-1.3 [facility] Comment on above: Order Comment: Speci men Type: BLOOD SPECIMENOrdering Facility: [facility] Address: [address] [place] [address] Performed By: #### 2 4323-8 ####[facility] LABCLIA [id number] [place] [address] [place] Calcium [Mass/Vol] 9.4 mg/dL Normal 8.5-10.2 [facility] Comment on above: Order Comment: Speci men Type: BLOOD SPECIMENOrdering Facility: [facility] Address: [address] [place] [address] Performed By: #### 2 4323-8 ####[facility] LABCLIA [id number] [place] [address] [place] Chloride [Moles/Vol] 103 mmol/L Normal 97-105 [facility] Comment on above: Order Comment: Speci men Type: BLOOD SPECIMENOrdering Facility: [facility] Address: [address] [place] [address] Performed By: #### 2 4323-8 ####[facility] LABCLIA [id number] [place] [address] [place] CO2 [Moles/Vol] 27 mmol/L Normal 22-30 [facility] Comment on above: Order Comment: Speci men Type: BLOOD SPECIMENOrdering Facility: [facility] Address: [address] [place] [address] Performed By: #### 2 4323-8 ####[facility] LABCLIA [id number] [address] [place] Creatinine [Mass/Vol] 1.04 mg/dL High 0.58-0.96 [facility] Comment on above: Order Comment: Rebeca ruelas Type: BLOOD SPECIMENOrdering Facility: [facility] Address: [address] [place] [address] Performed By: #### 2 4323-8 ####[facility] LABCLIA [id number] [place] [address] [place] [facility] [place] Creatinine and Glomerular filtration rate.predicted panel (S/P/Bld) 64 mL/min/1.73m??? Normal >=60 [facility] Comment on above: Order Comment: Rebeca ruelas Type: BLOOD SPECIMENOrdering Facility: [facility] Address: [address] [place] [address] Result Comment: Karyn mated Glomerular Filtration Rate [...] Performed By: #### 2 4323-8 ####[facility] LABCLIA [id number] [place] [address] [place] Glucose [Mass/Vol] 88 mg/dL Normal 74-99 [facility] Comment on above: Order Comment: Rebeca ruelas Type: BLOOD SPECIMENOrdering Facility: [facility] Address: [address] [place] [address] Result Comment: The [place] [employer] (ADA) provides guidance for cutoff [...] Standards of Medical Care in Diabetes 2016, [place] [employer]. Diabetes Care. 2016.39(Suppl 1). Performed By: #### 2 4323-8 ####[facility] LABCLIA [id number] [place] [address] [place] Potassium [Moles/Vol] 3.7 mmol/L Normal 3.7-5.1 [facility] Comment on above: Order Comment: Speci men Type: BLOOD SPECIMENOrdering Facility: [facility] Address: [address] [place] [address] Performed By: #### 2 4323-8 ####[facility] LABCLIA [id number] [place] [address] [place] Protein [Mass/Vol] 7.1 g/dL Normal 6.3-8.0 [facility] Comment on above: Order Comment: Speci men Type: BLOOD SPECIMENOrdering Facility: [facility] Address: [address] [place] [address] Performed By: #### 2 4323-8 ####[facility] LABCLIA [id number] [place] [address] [place] Sodium [Moles/Vol] 143 mmol/L Normal 136-144 [facility] Comment on above: Order Comment: Speci men Type: BLOOD SPECIMENOrdering Facility: [facility] Address: [address] [place] [address] Performed By: #### 2 4323-8 ####[facility] LABCLIA [id number] [place] [id number] [place] Urea nitrogen [Mass/Vol] 17 mg/dL Normal 7-21 [facility] Comment on above: Order Comment: Speci men Type: BLOOD SPECIMENOrdering Facility: [facility] Address: [address] [place] [address] Performed By: #### 2 4323-8 ####[facility] LABCLIA [id number] [place] [id number] [place] IgG SerPl-mCncon 05-22-2023 IgG [Mass/Vol] 954 mg/dL Normal 700-1600 [facility] Comment on above: Order Comment: Speci men Type: BLOOD SPECIMENOrdering Facility: [facility] Address: [address] [place] [address] Performed By: #### 2 465-3, 2472-9 ####[facility] LABIA [id number] [place] [id number] [place] IgM SerPl-mCncon 05-22-2023 IgM [Mass/Vol] 74 mg/dL Normal 40-230 [facility] Comment on above: Order Comment: Speci men Type: BLOOD SPECIMENOrdering Facility: [facility] Address: [address] [place] [address] Performed By: #### 2 465-3, 2472-9 ####[facility] LABIA [id number] [place] [id number] [place] So 05-14-2023 CNPN Telephone (NIQ) ANUPAMA VASQUEZ F ([id number]) 1970 F Date Time Provider Department 05/14/23 [...] Allergies) Date Reviewed: 10/11/2022 Reviewed by: Maryam Caberra, MOE - Fully Assessed Reason for Visit: [...] Status:Closed by MICHELLE LUJAN on 05/14/23 Normal [facility] PREG HCG QUALon 09-21-2022 , QUAL Negative Normal NEGATIVE [facility] Comment on above: Performed By: #### P REG #### [facility] [address] [place] [address] Dr. Angel Li IMMUNOGLOBULIN IGG QUANTITAT IVEon 06-06-2022 Immunoglobulin G, Qn, Serum 1032 mg/dL Normal 586-1602 [facility] Comment on above: Performed By: #### I MIGGQN #### [facility] [address] [place] [address] [address] Angel Li IMMUNOGLOBULIN IGM QUANTITAT IVEon 06-06-2022 Immunoglobulin M, Qn, Serum 46 mg/dL Normal 26-217 [facility] Comment on above: Performed By: #### I MIGMQN #### [facility] [address] [place] [address] Dr. Angel Li CBC AUTO DIFFon 06-05-2022 BASO # 0.0 103/ul Normal 0.0-0.1 [facility] Comment on above: Performed By: #### C BC #### [facility] [address] [place] [address] [address] Angel Li Basophils/100 WBC (Bld) 0.5 % Normal 0.2-2.0 [facility] Comment on above: Performed By: #### C BC #### [facility] [address] [place] [address] Dr. Angel Li EO # 0.2 103/ul Normal 0.0-0.7 [facility] Comment on above: Performed By: #### C BC #### [facility] [address] [place] [address] Dr. Angel Li Eosinophils/100 WBC (Bld) 2.6 % Normal 0.9-7.0 [facility] Comment on above: Performed By: #### C BC #### [facility] [address] [place] [address] Dr. Angel Li Erythrocyte distribution width (RBC) [Ratio] 14.5 % Normal 11.0-15.0 [facility] Comment on above: Performed By: #### C BC #### [facility] [address] [place] [address] Dr. Angel Li Hematocrit (Bld) [Volume fraction] 36.5 % Normal 36.0-48.0 [facility] Comment on above: Performed By: #### C BC #### [facility] [address] [place] [address] Dr. Angel Li Hemoglobin (Bld) [Mass/Vol] 11.8 g/dL Critically low 12.0-16.0 [facility] Comment on above: Performed By: #### C BC #### [facility] [address] [place] [address] Dr. Angel Li IG # 0.03 10e3/ul Normal 0.00-0.03 [facility] Comment on above: Performed By: #### C BC #### [facility] [address] [place] [address] Dr. Angel Li IG % 0.4 % Normal 0.0-0.5 [facility] Comment on above: Performed By: #### C BC #### [facility] [address] [place] [address] [address] Angel Li LYMPH # 0.8 103/ul Critically low 1.2-3.8 [facility] Comment on above: Performed By: #### C BC #### [facility] [address] [place] [address] [address] Angel Li Lymphocytes/100 WBC (Bld) 9.8 % Critically low 20.5-60.0 [facility] Comment on above: Performed By: #### C BC #### [facility] [address] [place] [address] [address] Angel Li MANUAL DIFF REQ NO Normal [facility] Comment on above: Performed By: #### C BC #### [facility] [address] [place] [address] Dr. Angel Li MCH (RBC) [Entitic mass] 29.0 pg Normal 26.7-34.0 [facility] Comment on above: Performed By: #### C BC #### [facility] [address] [place] [address] Dr. Angel Li MCHC (RBC) [Mass/Vol] 32.3 g/dL Normal 29.9-35.2 [facility] Comment on above: Performed By: #### C BC #### [facility] [address] [place] [address] [address] Angel iL MCV (RBC) [Entitic vol] 89.7 fL Normal 81.0-99.0 [facility] Comment on above: Performed By: #### C BC #### [facility] [address] [place] [address] [address] Angel Li MONO # 1.0 103/ul Critically high 0.3-0.8 [facility] Comment on above: Performed By: #### C BC #### [facility] [address] [place] [address] [address] Angel Li Monocytes/100 WBC (Bld) 13.0 % Critically high 1.7-12. 0 [facility] Comment on above: Performed By: #### C BC #### [facility] [address] [place] [address] [address] Angel Li NEUT # 5.9 103/ul Normal 1.4-6.5 [facility] Comment on above: Performed By: #### C BC #### [facility] [address] [place] [address] [address] Angel Li Neutrophils/100 WBC (Bld) 73.7 % Normal 43.0-75.0 [facility] Comment on above: Performed By: #### C BC #### [facility] [address] [place] [address] [address] Angel Li Platelet mean volume (Bld) [Entitic vol] 11.6 fL Normal 9.5-13.5 [facility] Comment on above: Performed By: #### C BC #### [facility] [address] [place] [address] Dr. Angel Li PLT 200 103/ul Normal 150-450 [facility] Comment on above: Performed By: #### C BC #### [facility] [address] [place] [address] [address] Angel Li RBC 4.07 106/ul Critically low 4.20-5.40 [facility] Comment on above: Performed By: #### C BC #### [facility] [address] [place] [address] Dr. Angel Li WBC 8.0 103/ul Normal 4.0-11.0 [facility] Comment on above: Performed By: #### C BC #### [facility] [address] [place] [address] [address] Angel Li PROF 14(COMP METB)on 023 Albumin [Mass/Vol] 3.4 g/dL Normal 3.4-5.0 [facility] Comment on above: Performed By: #### C MP #### [facility] [address] [place] [address] Dr. Angel Li Albumin/Globulin [Mass ratio] 0.9 {ratio} Normal [facility] Comment on above: Performed By: #### C MP #### [facility] [address] [place] [address] [address] Angel Li ALP [Catalytic activity/Vol] 122 U/L Critically high 46-116 [facility] Comment on above: Performed By: #### C MP #### [facility] [address] [place] [address] Dr. Angel Li ALT [Catalytic activity/Vol] 35 U/L Normal 14-59 [facility] Comment on above: Performed By: #### C MP #### [facility] [address] [place] [address] [address] Angel Li Anion gap [Moles/Vol] 9.7 mmol/L Normal [facility] Comment on above: Performed By: #### C MP #### [facility] [address] [place] [address] Dr. Angel Li AST [Catalytic activity/Vol] 32 U/L Normal 15-37 [facility] Comment on above: Performed By: #### C MP #### [facility] [address] [place] [address] Dr. Angel Li Bilirubin [Mass/Vol] 0.4 mg/dL Normal 0.2-1.0 [facility] Comment on above: Performed By: #### C MP #### [facility] [address] [place] [address] Dr. Angel Li Calcium [Mass/Vol] 9.0 mg/dL Normal 8.5-10.1 [facility] Comment on above: Performed By: #### C MP #### [facility] [address] [place] [address] Dr. Angel Li Chloride [Moles/Vol] 103 mmol/L Normal 98-107 [facility] Comment on above: Performed By: #### C MP #### [facility] [address] [place] [address] Dr. Angel Li CO2 [Moles/Vol] 32.3 mmol/L Critically high 21.0-32.0 [facility] Comment on above: Performed By: #### C MP #### [facility] [address] [place] [address] [address] Angel Li Creatinine [Mass/Vol] 0.97 mg/dL Normal 0.55-1.02 [facility] Comment on above: Performed By: #### C MP #### [facility] [address] [place] [address] [address] Angel Li EGFR-AF NAURUAN >60 Normal >=60 [facility] Comment on above: Performed By: #### C MP #### [facility] [address] [place] [address] [address] Angel Li EGFR-NON AF NAURUAN =60 Normal >=60 [facility] Comment on above: Performed By: #### C MP #### [facility] [address] [place] [address] [address] Angel Li Globulin (S) [Mass/Vol] 3.7 g/dL Normal [facility] Comment on above: Performed By: #### C MP #### [facility] [address] [place] [address] [address] Angel Li Glucose [Mass/Vol] 87 mg/dL Normal 74-106 [facility] Comment on above: Performed By: #### C MP #### [facility] [address] [place] [address] Dr. Angel Li Potassium [Moles/Vol] 4.0 mmol/L Normal 3.5-5.1 [facility] Comment on above: Performed By: #### C MP #### [facility] [address] [place] [address] [address] Angel Li Protein [Mass/Vol] 7.1 g/dL Normal 6.4-8.2 [facility] Comment on above: Performed By: #### C MP #### [facility] [address] [place] [address] Dr. Angel Li Sodium [Moles/Vol] 141 mmol/L Normal 136-145 [facility] Comment on above: Performed By: #### C MP #### [facility] [address] [place] [address] [address] Angel Li Urea nitrogen [Mass/Vol] 11.0 mg/dL Normal 7.0-18.0 [facility] Comment on above: Performed By: #### C MP #### [facility] [facility] [address] [place] [address] Dr. Angel Li Urea nitrogen/Creatinine [Mass ratio] 11.3 mg/mg Normal [facility] Comment on above: Performed By: #### C MP #### [facility] [address] [place] [address] Dr. Angel Li PAP ACOG PANEL 2: 30 to 65on 03-13-2022 . . Normal [facility] Comment on above: Result Comment: Perf ormed at: WB Performed By: #### [id number] #### [facility] [address] [place] [address] Dr. Angel Li Age Gdln ACOG Testing 30-65 [facility] Comment on above: Performed By: #### [id number] #### [facility] [address] [place] [address] Dr. Angel Li DIAGNOSIS: Comment Normal [facility] Comment on above: Result Comment: NEGA TIVE FOR INTRAEPITHELIAL LESION OR MALIGNANCY. Performed at: WB Performed By: #### [id number] #### [facility] [address] [place] [address] Dr. Angel Li HPV Aptima Negative Normal Negative [facility] Comment on above: Result Comment: This nucleic acid amplification test detects fourteen high-risk HPV types (16,18,31,33,35,39,45,51,52,56,58,59,66,68) without differentiation. Performed at: =G Performed By: #### [id number] #### [facility] [address] [place] [address] Dr. Angel Li Methodology: Comment Normal [facility] Comment on above: Result Comment: This liquid based ThinPrep(R) pap test was screened with the use of an image guided system. Performed at: WB Performed By: #### [id number] #### [facility] [address] [place] [address] Dr. Angel Li Note: Comment Normal [facility] Comment on above: Result Comment: The Pap smear is a screening test designed to aid in the detection of premalignant and malignant conditions of the uterine cervix. It is not a diagnostic procedure and should not be used as the sole means of detecting cervical cancer. Both false-positive and false-negative reports do occur. . Performed at: WB Performed By: #### [id number] #### [facility] [address] [address] [address] Angel Li Performed by: Comment Normal [facility] Comment on above: Result Comment: Shyanne Back, Net Programmer (ASCP) Performed at: WB Performed By: #### [id number] #### [facility] [address] [place] [address] Dr. Angel Li Specimen adequacy: Comment Normal [facility] Comment on above: Result Comment: Sati sfactory for evaluation. Endocervical and/or squamous metaplastic cells (endocervical component) are present. Performed at: WB Performed By: #### [id number] #### [facility] [address] [place] [address] Dr. Angel Li VAGINITIS/VAGINOSIS DNA PROB Marcelino 03-08-2022 Gracia species Negative Normal Negative [facility] Comment on above: Performed By: #### V AGINT #### [facility] [address] [place] [address] Dr. Angel Li Gardnerella vaginalis Positive Abnormal Negative [facility] Comment on above: Performed By: #### V AGINT #### [facility] [address] [place] [address] Dr. Angel Li Trichomonas vaginalis Negative Normal Negative [facility] Comment on above: Performed By: #### V AGINT #### [facility] [address] [place] [address] Dr. Angel iL BRAIN & CERVICAL SPINE MRI D [facility] DATA 11-14-2021 Brain Enhancing Lesions None C [facility] Brain Interval Improvement None [facility] Brain [facility] T[facility] Brain Other Significant MRI Findings None. [facility] Brain Parenchymal Volume Loss None [facility] Brain T2 Orick of Disease Moderate [facility] MRI BRAIN WO/W IVCONon 11-14 [facility] CBC W Auto Differential pane l (Bld)on 09-18-2021 Abs Immature Gran <0.03 <0.10 k/uL [facility] Basophils (Bld) [#/Vol] 0.03 10*3/uL <0.11 k/uL [facility] Basophils/100 WBC (Bld) 0.5 % C [facility] Differential cell count method Nom (Bld) Auto [facility] Eosinophils (Bld) [#/Vol] 0.15 10*3/uL <0.46 k/uL [facility] Eosinophils/100 WBC (Bld) 2.4 % [facility] Erythrocyte distribution width (RBC) [Ratio] 14.2 % 11.5 - 15.0 % [facility] Hematocrit (Bld) [Volume fraction] 41.5 % 36.0 - 46.0 % [facility] Hemoglobin (Bld) [Mass/Vol] 12.9 g/dL 11.5 - 15.5 g/dL [facility] Immature Gran % 0.3 % [facility] Lymphocytes (Bld) [#/Vol] 0.60 10*3/uL Low 1.00 - 4.00 k/uL [facility] Lymphocytes/100 WBC (Bld) 9.7 % [facility] MCH (RBC) [Entitic mass] 29.3 pg 26. 0 - 34.0 pg [facility] MCHC (RBC) [Mass/Vol] 31.1 g/dL 30.5 - 36.0 g/dL [facility] MCV (RBC) [Entitic vol] 94.3 fL 80.0 - 100.0 fL [facility] Monocytes (Bld) [#/Vol] 0.74 10*3/uL <0.87 k/uL [facility] Monocytes/100 WBC (Bld) 12.0 % C [facility] Neutrophils (Bld) [#/Vol] 4.62 10*3/uL 1.45 - 7.50 k/uL [facility] Neutrophils/100 WBC (Bld) 75.1 % [facility] Nucleated RBC (Bld) [#/Vol] 10*3/uL <0.01 k/uL [facility] Nucleated RBC/100 WBC (Bld) [Ratio] 0.0 /100 WBC [facility] Platelet mean volume (Bld) [Entitic vol] 12.5 fL 9.0 - 12.7 fL [facility] Platelets (Bld) [#/Vol] 181 10*3/uL 150 - 400 k/uL [facility] RBC (Bld) [#/Vol] 4.40 10*6/uL 3.90 - 5.20 m/uL [facility] WBC (Bld) [#/Vol] 6.16 10*3/uL 3.70 - 11.00 k/uL [facility] Comprehensive metabolic 2000 panelon 09-18-2021 Albumin [Mass/Vol] 3.8 g/dL Low 3.9 - 4.9 g/dL [facility] ALP [Catalytic activity/Vol] 114 U/L 34 - 123 U/L [facility] ALT [Catalytic activity/Vol] 16 U/L 7 - 38 U/L [facility] Anion gap [Moles/Vol] 11 mmol/L 9 - 18 mmol/L [facility] AST [Catalytic activity/Vol] 21 U/L 13 - 35 U/L [facility] Bilirubin [Mass/Vol] 0.4 mg/dL 0.2 - 1 .3 mg/dL [facility] Calcium [Mass/Vol] 9.0 mg/dL 8.5 - 10. 2 mg/dL [facility] Chloride [Moles/Vol] 102 mmol/L 97 - 10 5 mmol/L [facility] CO2 [Moles/Vol] 25 mmol/L 22 - 30 mmol/L [facility] Creatinine [Mass/Vol] 0.97 mg/dL High 0.58 - 0.96 mg/dL [facility] Estimated Glomerular Filtration Rate 70 mL/min/1.73m >=60 mL/min/1.7 3m [facility] Glucose [Mass/Vol] 60 mg/dL Low 74 - 99 mg/dL [facility] Potassium [Moles/Vol] 4.0 mmol/L 3.7 - 5.1 mmol/L [facility] Protein [Mass/Vol] 7.0 g/dL 6.3 - 8.0 g/dL [facility] Sodium [Moles/Vol] 138 mmol/L 136 - 144 mmol/L [facility] Urea nitrogen [Mass/Vol] 10 mg/dL 7 - 21 mg/dL [facility] LIPID PANEL BASICon 05-02-20 22 Cholesterol [Mass/Vol] 142 mg/dL <200 mg/dL [facility] Cholesterol in HDL [Mass/Vol] 39 mg/dL Low >39 mg/dL [facility] Cholesterol in LDL [Mass/Vol] 72 mg/dL <100 mg/dL [facility] Cholesterol in LDL/Cholesterol in HDL [Mass ratio] 1.85 {ratio} <2.54 [facility] Cholesterol in VLDL [Mass/Vol] 31 mg/dL High <30 mg/dL [facility] Cholesterol non HDL [Mass/Vol] 103 mg/dL <130 mg/dL [facility] Cholesterol.total/Choles terol in HDL [Mass ratio] 3.64 {ratio} <5.10 [facility] Fasting Time 14 hours [facility] Triglyceride [Mass/Vol] 157 mg/dL High <150 mg/dL C [facility] COVID-19 SOFIAOrdered By: Mague Rosa on 09-01-2021 SARS-CoV+SARS-CoV-2 (COVID-19) Ag IA.rapid Ql (Resp) Negative Negative [facility] Comment on above: This is a duplicate Wilma SARS Antigen (ELAINA) result to be used for statistical tracking purpose only. No Panel InformationOrdered By: Liyah Rosa on 09-01-2021 SARS Antigen (LFIA) [facility] CBC W/AUTO DIFFon 05-07-2017 % NEUTROPHILS [...] Glucose mass conc 78 mg/dL Normal 70-100 [employer] Comment on above: Result Comment: DIAG NOSTIC THRESHOLDS FOR DIABETES AND IMPAIRED FASTING GLUCOSE (IFG) FASTING PLASMA GLUCOSE NORMAL <100 mg/dL IFG 100-125 mg/dL DIABETES >/= 126 mg/dL Potassium molar conc 4.1 mmol/L Normal 3.5-5.4 [facility] Sodium 144 mmol/L Normal 134-147 [facility] T. PROTEIN 6.8 g/dl Normal 5.8-8.0 [facility] Urea nitrogen 14 mg/dL Normal 10-20 [facility] LIPID PANEL (INCLUDES CALCUL ATED LDL)on 05-07-2017 Cholesterol 172 mg/dL Normal <200 [facility] Cholesterol to HDL Ratio 3.1 {ratio} Normal <5 [facility] HDL-CHOL 56 mg/dl Normal 40-60 [employer] Comment on above: Result Comment: HDL <40 mg/dL IS A RISK FACTOR FOR CORONARY HEART DISEASE. HDL >60 mg/dL IS A NEGATIVE RISK FACTOR FOR CORONARY HEART DISEASE. LDL to HDL Ratio 1.7 Normal <3.5 [employer] LDL-CHOL, CALCULATED 95 mg/dL Normal <130 [employer] Comment on above: Result Comment: LDL CHOLESTEROL REFERENCE RANGE FOR 0-19 YEARS: DESIRABLE <110 mg/dL, BORDERLINE 110-129, HIGH RISK >130 LDL CHOLESTEROL REFERENCE RANGE FOR ADULTS: DESIRABLE <100 mg/dL, BORDERLINE 130-159, HIGH RISK >160REFERENCE RANGES REVISED 10/28/15 ACCORDING TO NCEP GUIDELINES Triglyceride 107 mg/dL Normal <150 [facility] VLDL-CHOL, CALCULATED 21 mg/dL Normal <30 [facility] [employer] TSH WITH FT4 REFLEXon 2016 Thyroid stimulating hormone (TSH) 1.480 uIU/mL Normal 0.40-4.40 [employer] Comment on above: Result Comment: [employer]. [address] [place] [address] [id number] Director: Troy Goddard M.D.CLIA No. [id number] CAP Accreditation No. [id number] CARDIOPULMONARY REPORT CLDon 12-24-2016 CARDIOPULMONARY REPORT [address] [place] [address] [place], [place] [id number] [place], [place] [address]Egrrmio Name: ANUPAMA VASQUEZ Visit ID: [id number] Record #: [id number] : 1970CC: Frances Ro CNP Pulmonary Function [...] seen. Clinical correlation is recommended. Author: CAROL Rao/jerry/[id number] T: 12/24/2016 10:41 cc: Frances Ro CNP Electronically Authenticated and Edited by:Jacki Hess MD On 12/31/2016 09:16 AM EDT [facility] Vital Signs Date Time Vital Sign Value Performing Clinician Facility 12-29-2024 14: Body height 172.72 cm Alonzo Holguin MD Work Phone: [facility] 12-29-2024 14: Body mass index (BMI) [Ratio] 41.8 kg/m2 Alonzo Holguin MD Work Phone: [facility] 12-29-2024 14: Body weight 124.73 kg Alonzo Holguin MD Work Phone: [facility] 12-29-2024 14:08-0400 Diastolic blood pressure 72 mm[Hg] Alonzo Holguin MD Work Phone: [facility] 12-29-2024 14:08-0400 Heart rate 77 /min Alonzo Holguin MD Work Phone: [facility] 12-29-2024 14:08-0400 Systolic blood pressure 110 mm[Hg] Alonzo Holguin MD Work Phone: [facility] 12-25-2024 10:09-0400 Body temperature 97.9 [degF] Guillermo Mendoza MD Work Phone: [facility] 12-25-2024 10:09-0400 Diastolic blood pressure 49 mm[Hg] Guillermo Mendoza MD Work Phone: [facility] 12-25-2024 10:09-0400 Heart rate 78 /min Guillermo Mendoza MD Work Phone: [facility] 12-25-2024 10:09-0400 Respiratory rate 16 /min [facility] MD [facility] 12-25-2024 10:09-0400 SaO2% (BldA) [Mass fraction] 96 % Guillermo Mendoza MD Work Phone: [facility] 12-25-2024 10:09-0400 Systolic blood pressure 91 mm[Hg] Guillermo Mendoza MD Work Phone: [facility] 12-10-2024 09:52-0400 Body height 165 cm Guillermo Mendoza MD [facility] 12-10-2024 09:52-0400 Body mass index (BMI) [Ratio] 47.25 kg/m2 Guillermo Mendoza MD Work Phone: [facility] 12-10-2024 09:52-0400 Body weight 128.64 kg Guillermo Mendoza MD Work Phone: [facility] 12-10-2024 09:18-0400 Body temperature 98.01 [degF] Guillermo Mendoza MD Work Phone: [facility] 12-10-2024 09:18-0400 Diastolic blood pressure 49 mm[Hg] Guillermo Mendoza MD Work Phone: [facility] 12-10-2024 09:18-0400 Heart rate 79 /min Guillermo Mendoza MD Work Phone: [facility] 12-10-2024 09:18-0400 Respiratory rate 17 /min Guillermo Mendoza MD Work Phone: [facility] 12-10-2024 09:18-0400 SaO2% (BldA) [Mass fraction] 98 % Guillermo Mendoza MD Work Phone: [facility] 12-10-2024 09:18-0400 Systolic blood pressure 90 mm[Hg] Guillermo Mendoza MD Work Phone: [facility] 11-19-2024 15:04-0400 Body height 172.72 cm Tripp Gruber MD Work Phone: [facility] 11-19-2024 15:04-0400 Body mass index (BMI) [Ratio] 38 kg/m2 Tripp Gruber MD Work Phone: [facility] 11-19-2024 15:04-0400 Body temperature 96.3 [degF] Tripp Gruber MD Work Phone: [facility] 11-19-2024 15:04-0400 Body weight 113.39 kg Tripp Gruber MD Work Phone: [facility] 11-19-2024 15:04-0400 Diastolic blood pressure 56 mm[Hg] Tripp Gruber MD Work Phone: [facility] 11-19-2024 15:04-0400 Heart rate 83 /min Tripp Gruber MD Work Phone: [facility] 11-19-2024 15:04-0400 Respiratory rate 18 /min Tripp Gruber MD Work Phone: [facility] 11-19-2024 15:04-0400 SaO2% (BldA) [Mass fraction] 98 % Tripp Gruber MD Work Phone: [facility] 11-19-2024 15:04-0400 Systolic blood pressure 98 mm[Hg] Tripp Gruber MD Work Phone: [facility] 11-12-2024 10:55-0400 Body height 165.1 cm Guillermo Mendoza MD Work Phone: [facility] 11-12-2024 10:55-0400 Body temperature 98.1 [degF] Guillermo Mendoza MD Work Phone: [facility] 11-12-2024 10:55-0400 Diastolic blood pressure 63 mm[Hg] Guillermo Mendoza MD Work Phone: [facility] 11-12-2024 10:55-0400 Heart rate 82 /min Guillermo Mendoza MD Work Phone: [facility] 11-12-2024 10:55-0400 Respiratory rate 22 /min [facility]ill[facility]za MD [facility] 11-12-2024 10:55-0400 SaO2% (BldA) [Mass fraction] 100 % Guillermo Mendoza MD [facility] Phone[facility] 11-12-2024 10:55-0400 Systolic blood pressure 122 mm[Hg] Guillermo Mendoza MD Work Phone: [facility] 11-10-2024 12:30-0400 Body height 165.1 cm Reji Garcia [employer]UCC[employer] APPLICATOR-GEOTECHNICIAL PROPERTIES TECHNICIAN Work Phone: [facility] 11-10-2024 12:30-0400 Body mass index (BMI) [Ratio] 42.1 kg/m2 Reji Garcia STUCCO APPLICATOR-GEOTECHNICIAL PROPERTIES TECHNICIAN Work Phone: [facility] 11-10-2024 12:30-0400 Body weight 114.76 kg Reji Garcia STUCCO APPLICATOR-GEOTECHNICIAL PROPERTIES TECHNICIAN Work Phone: [facility] 09-28-2024 23:34-0400 Diastolic blood pressure 63 mm[Hg] Julio Fernandez MD Work Phone: [facility] 09-28-2024 23:34-0400 Heart rate 83 /min Julio Fernandez MD Work Phone: [facility] 09-28-2024 23:34-0400 Respiratory rate 15 /min Julio Fernandez MD Work Phone: [facility] 09-28-2024 23:34-0400 Systolic blood pressure 115 mm[Hg] Julio Fernandez MD Work Phone: [facility] 09-28-2024 20:38-0400 Body temperature 98.1 [degF] Julio Fernandez MD Work Phone: [facility] 09-28-2024 20:38-0400 SaO2% (BldA) [Mass fraction] 100 % Julio Fernandez MD Work Phone: [facility] 09-28-2024 05:00-0400 Body mass index (BMI) [Ratio] 40.87 kg/m2 Julio Fernandez MD Work Phone: [facility] 09-28-2024 05:00-0400 Body weight 114.8 kg Julio Fernandez MD Work Phone: [facility] 09-25-2024 01:00-0400 Body height 167.6 cm Julio Fernandez MD Work Phone: [facility] 09-19-2024 03:52-0400 SaO2% (BldA) [Mass fraction] 95 % Julio Fernandez MD Work Phone: [facility] 09-19-2024 03:52-0400 SaO2% (BldA) [Mass fraction] 78 % Julio Fernandez MD Work Phone: [facility] 09-19-2024 03:47-0400 SaO2% (BldA) [Mass fraction] 78 % FRED GRACIA [facility] Comment on above: Performed By: #### PINR #### [facility] ([facility]) [address] [place] [address] [facility] 09-16-2024 13:14-0400 Body temperature 96.8 [degF] Adonay Castillo STUCCO APPLICATOR-GEOTECHNICIAL PROPERTIES TECHNICIAN Work Phone: [facility] 09-16-2024 13:14-0400 Diastolic blood pressure 85 mm[Hg] Adonay Castillo STUCCO APPLICATOR-GEOTECHNICIAL PROPERTIES TECHNICIAN Work Phone: [facility] 09-16-2024 13:14-0400 Heart rate 74 /min Adonay Castillo STUCCO APPLICATOR-GEOTECHNICIAL PROPERTIES TECHNICIAN Work Phone: [facility] 09-16-2024 13:14-0400 Systolic blood pressure 147 mm[Hg] Adonay Castillo STUCCO APPLICATOR-GEOTECHNICIAL PROPERTIES TECHNICIAN Work Phone: [facility] 08-18-2024 09:18-0400 Body mass index (BMI) [Ratio] 44.96 kg/m2 Fred Basil MANAGER ENTERPRISE Work Phone: [facility] 08-18-2024 09:18-0400 Body temperature 98.2 [degF] Fred Bonitaz MANAGER ENTERPRISE Work Phone: [facility] 08-18-2024 09:18-0400 Body weight 122.56 kg Fred Bonitaz MANAGER ENTERPRISE Work Phone: [facility] 08-18-2024 09:18-0400 Diastolic blood pressure 80 mm[Hg] Fred Bonitaz MANAGER ENTERPRISE Work Phone: [facility] 08-18-2024 09:18-0400 Heart rate 98 /min Fred Bonitaz MANAGER ENTERPRISE Work Phone: [facility] 08-18-2024 09:18-0400 Respiratory rate 24 /min Fred Bonitaz MANAGER ENTERPRISE Work Phone: [facility] 08-18-2024 09:18-0400 SaO2% (BldA) [Mass fraction] 95 % Fred Ascenciojesicaruby MANAGER ENTERPRISE Work Phone: [facility] 08-18-2024 09:18-0400 Systolic blood pressure 110 mm[Hg] Fred Ascenciovicky MANAGER ENTERPRISE Work Phone: [facility] 06-17-2024 09:33-0500 Body mass index (BMI) [Ratio] 47.09 kg/m2 Sherrie Boone MANAGER ENTERPRISE Work Phone: [facility] 06-17-2024 09:33-0500 Body temperature 97.7 [degF] Sherrie Boone MANAGER ENTERPRISE Work Phone: [facility] 06-17-2024 09:33-0500 Body weight 128.37 kg Sherrie Boone MANAGER ENTERPRISE Work Phone: [facility] 06-17-2024 09:33-0500 Diastolic blood pressure 82 mm[Hg] Sherrie Boone MANAGER ENTERPRISE Work Phone: [facility] 06-17-2024 09:33-0500 Heart rate 100 /min Sherrie Boone MANAGER ENTERPRISE Work Phone: [facility] 06-17-2024 09:33-0500 Respiratory rate 16 /min Sherrie Boone MANAGER ENTERPRISE Work Phone: [facility] 06-17-2024 09:33-0500 SaO2% (BldA) [Mass fraction] 97 % Sherrie Boone MANAGER ENTERPRISE Work Phone: [facility] 06-17-2024 09:33-0500 Systolic blood pressure 120 mm[Hg] Sherrie Boone MANAGER ENTERPRISE Work Phone: [facility] 05-18-2024 09:18-0500 Body height 165.1 cm Fred Basil MANAGER ENTERPRISE Work Phone: [facility] 05-18-2024 09:18-0500 Body mass index (BMI) [Ratio] 46.93 kg/m2 Fred Basil MANAGER [employer]TERPRISE Work Phone: [facility] 05-18-2024 09:18-0500 Body temperature 98.1 [degF] Fred Basil MANAGER ENTERPRISE Work Phone: [facility] 05-18-2024 09:18-0500 Body weight 127.91 kg Fred Basil MANAGER ENTERPRISE Work Phone: [facility] 05-18-2024 09:18-0500 Diastolic blood pressure 90 mm[Hg] Fred Basil MANAGER ENTERPRISE Work Phone: [facility] 05-18-2024 09:18-0500 Heart rate 81 /min Fred Basil MANAGER ENTERPRISE Work Phone: [facility] 05-18-2024 09:18-0500 Respiratory rate 19 /min Fred Basil MANAGER ENTERPRISE Work Phone: [facility] 05-18-2024 09:18-0500 SaO2% (BldA) [Mass fraction] 95 % Fred Basil MANAGER ENTERPRISE Work Phone: [facility] 05-18-2024 09:18-0500 Systolic blood pressure 144 mm[Hg] Fred Basil MANAGER ENTERPRISE Work Phone: [facility] 04-27-2024 09:03-0500 Body height 165.1 cm [facility] Work Phone: [facility] 04-27-2024 09:03-0500 Body mass index (BMI) [Ratio] 46.43 kg/m2 [facility] Work Phone: [facility] 04-27-2024 09:03-0500 Body weight 126.55 kg [facility] Work Phone: [facility] 03-05-2024 10:04-0400 Body height 165.1 cm Fredvirginia Gracia MANAGER ENTERPRISE Work Phone: [facility] 03-05-2024 10:04-0400 Body mass index (BMI) [Ratio] 46.49 kg/m2 Fred Ascencioholz MANAGER ENTERPRISE Work Phone: [facility] 03-05-2024 10:04-0400 Body temperature 97.59 [degF] Fred Ascencioholz MANAGER ENTERPRISE Work Phone: [facility] 03-05-2024 10:04-0400 Body weight 126.73 kg Fred Ascencioholz MANAGER ENTERPRISE Work Phone: [facility] 03-05-2024 10:04-0400 Diastolic blood pressure 82 mm[Hg] Fred Gabrielhholz MANAGER ENTERPRISE Work Phone: [facility] 03-05-2024 10:04-0400 Heart rate 82 /min Fred Ascencioholz MANAGER ENTERPRISE Work Phone: [facility] 03-05-2024 10:04-0400 Respiratory rate 18 /min Fred Ascencioholz MANAGER ENTERPRISE Work Phone: [facility] 03-05-2024 10:04-0400 SaO2% (BldA) [Mass fraction] 97 % Fredvirginia Ascencioholz MANAGER ENTERPRISE Work Phone: [facility] 03-05-2024 10:04-0400 Systolic blood pressure 112 mm[Hg] Fred Sonuholz MANAGER ENTERPRISE Work Phone: [facility] 02-25-2024 08:32-0400 Body height 165.1 cm Eliazar Brooks DO Work Phone: [facility] 02-25-2024 08:32-0400 Body mass index (BMI) [Ratio] 48.09 kg/m2 Eliazar Brooks DO Work Phone: [facility] 02-25-2024 08:32-0400 Body weight 131.09 kg Eliazar Brooks DO Work Phone: [facility] 02-10-2024 17:11-0400 Heart rate 82 /min Eliazar Brooks [facility] 02-10-2024 17:11-0400 SaO2% (BldA) [Mass fraction] 94 % Eliazar Zbigniew [facility] 02-10-2024 17:11-0400 Diastolic blood pressure 89 mm[Hg] Eliazar Brooks [facility] 02-10-2024 17:11-0400 Mean blood pressure 109 mm[Hg] Eliazar Brooks [facility] 02-10-2024 17:11-0400 Systolic blood pressure 148 mm[Hg] Eliazar Brooks [facility] 02-10-2024 17:11-0400 Respiratory rate 16 /min Eliazar Brooks [facility] 02-10-2024 17:11-0400 Body temperature 98.24 [degF] Eliazar Brooks [facility] 02-10-2024 16:06-0400 Heart rate 81 /min Eliazar Brooks [facility] 02-10-2024 16:06-0400 SaO2% (BldA) [Mass fraction] 99 % Eliazar Brooks [facility] 02-10-2024 16:06-0400 Diastolic blood pressure 81 mm[Hg] Eliazar Brooks [facility] 02-10-2024 16:06-0400 Mean blood pressure 98 mm[Hg] Eliazar Brooks [facility] 02-10-2024 16:06-0400 Systolic blood pressure 134 mm[Hg] [facility] [facility] 02-10-[facility]24 16:05-0400 Respiratory rate 16 /min Eliazar Brooks [facility] 02-10-2024 16:00-0400 Body temperature 97.52 [degF] Eliazar Brooks [facility] 02-10-2024 16:00-0400 Respiratory rate 22 /min Eliazar Brooks [facility] 02-10-2024 16:00-0400 SaO2% (BldA) [Mass fraction] 95 % Eliazar Brooks [facility] 02-10-2024 16:00-0400 Systolic blood pressure 139 mm[Hg] Eliazar Brooks [facility] 02-10-2024 15:50-0400 Mean blood pressure 106 mm[Hg] Eliazar Brooks [facility] 02-10-2024 15:50-0400 Respiratory rate 24 /min Eliazar Brooks [facility] 02-10-2024 15:45-0400 Respiratory rate 9 /min Eliazar Brooks [facility] 02-10-2024 15:37-0400 Blood Pressure Location Eliazar Brooks [facility] 02-10-2024 15:37-0400 Body temperature 97.7 [degF] Eliazar Zbigniew [facility] 02-10-2024 15:30-0400 Respiratory rate 18 /min Eliazar Brooks [facility] 02-10-2024 12:04-0400 Blood Pressure Location Eliazar Brooks [facility] 02-10-2024 12:04-0400 Mean blood pressure 100 mm[Hg] Eliazar Zbigniew [facility] 02-10-2024 12:04-0400 Heart rate 94 /min Eliazar Zbigniew [facility] 02-10-2024 12:03-0400 Body temperature 97.88 [degF] Eliazar Zbigniew [facility] 02-10-2024 12:03-0400 Blood Pressure Location Eliazar Zbigniew [facility] 02-03-2024 14:28-0400 Body height 165.1 cm Fred Gracia MANAGER ENTERPRISE Work Phone: [facility] 02-03-2024 14:28-0400 Body mass index (BMI) [Ratio] 48.09 kg/m2 Fred Gracia MANAGER ENTERPRISE Work Phone: [facility] 02-03-2024 14:28-0400 Body temperature 98.49 [degF] Fred Gracia MANAGER ENTERPRISE Work Phone: [facility] 02-03-2024 14:28-0400 Body weight 131.09 kg Fred Gracia MANAGER ENTERPRISE Work Phone: [facility] 02-03-2024 14:28-0400 Diastolic blood pressure 90 mm[Hg] Fred Gracia MANAGER ENTERPRISE Work Phone: [facility] 02-03-2024 14:28-0400 Heart rate 83 /min Fred Gracia MANAGER ENTERPRISE Work Phone: [facility] 02-03-2024 14:28-0400 Respiratory rate 18 /min Fred Gracia MANAGER ENTERPRISE Work Phone: [facility] 02-03-2024 14:28-0400 SaO2% (BldA) [Mass fraction] 93 % Fred Gracia MANAGER ENTERPRISE Work Phone: [facility] 02-03-2024 14:28-0400 Systolic blood pressure 128 mm[Hg] Fred Gracia MANAGER ENTERPRISE Work Phone: [facility] 01-30-2024 10:45-0400 Body height 165.1 cm Eliazar Brooks DO Work Phone: [facility] 01-30-2024 10:45-0400 Body mass index (BMI) [Ratio] 48.92 kg/m2 Eliazar Brooks DO Work Phone: [facility] 01-30-2024 10:45-0400 Body weight 133.36 kg Eliazar Brooks DO Work Phone: [facility] 07-10-2023 15:53-0500 Body height 167.6 cm Paris Paris DO Work Phone: [facility] 07-10-2023 15:53-0500 Body weight 134.26 kg Paris Paris DO Work Phone: [facility] 07-10-2023 15:53-0500 Heart rate 89 /min Paris Paris DO Work Phone: [facility] 07-10-2023 15:53-0500 SaO2% (BldA) [Mass fraction] 97 % Paris Paris DO Work Phone: [facility] 06-26-2023 11:34-0500 Body height 165.1 cm Shaikh Jonn BENITEZ Work Phone: [facility] 06-26-2023 11:34-0500 Body mass index (BMI) [Ratio] 48.09 kg/m2 Shaikh Jonn BENITEZ Work Phone: [facility] 06-26-2023 11:34-0500 Body temperature 98.6 [degF] Shaikh Jonn BENITEZ Work Phone: [facility] 06-26-2023 11:34-0500 Body weight 131.09 kg Shaikh Jonn BENITEZ Work Phone: [facility] 06-26-2023 11:34-0500 Diastolic blood pressure 80 mm[Hg] Shaikh Jonn BENITEZ Work Phone: [facility] 06-26-2023 11:34-0500 Heart rate 77 /min Shaikh Jonn BENITEZ Work Phone: [facility] 06-26-2023 11:34-0500 SaO2% (BldA) [Mass fraction] 96 % Shaikh Jonn BENITEZ Work Phone: [facility] 06-26-2023 11:34-0500 Systolic blood pressure 136 mm[Hg] Shaikh Jonn BENITEZ Work Phone: [phone] [place] [address] 04-18-2022 10:30-0500 Body height 173.99 cm Liyah Solorzanoack Other [employer] Other 04-18-2022 10:30-0500 Body mass index (BMI) [Ratio] 46.68 kg/m2 Liyah Rosa Other [employer] Other 04-18-2022 10:30-0500 Body weight 141.34 kg Liyah Rosa Other [employer] Other 04-18-2022 10:30-0500 Diastolic blood pressure 89 mm[Hg] Liyah Moe Other [employer] Other 04-18-2022 10:30-0500 Systolic blood pressure 129 mm[Hg] Liyah Moe Other [employer] Other 03-22-2022 12:54-0400 Body height 172.7 cm Jessica Young PA-C Work Phone: [facility] 03-22-2022 12:54-0400 Body weight 131.54 kg Jessica Young PA-C Work Phone: [facility] 03-22-2022 12:54-0400 Diastolic blood pressure 76 mm[Hg] Jessica Young PA-C Work Phone: [facility] 03-22-2022 12:54-0400 Heart rate 108 /min Jessica Young PA-C Work Phone: [facility] 03-22-2022 12:54-0400 Systolic blood pressure 129 mm[Hg] Jessica Young PA-C Work Phone: [facility] 03-22-2022 09:30-0400 Body temperature 97 [degF] Infusion 10 Work Phone: [facility] 03-22-2022 09:30-0400 Diastolic blood pressure 83 mm[Hg] Infusion 10 Work Phone: [facility] 03-22-2022 09:30-0400 Heart rate 79 /min Infusion 10 Work Phone: [facility] 03-22-2022 09:30-0400 Systolic blood pressure 152 mm[Hg] Infusion 10 Work Phone: [facility] 12-13-2021 10:30-0400 Body height 173.99 cm Liyah Moe Other [employer] Other 12-13-2021 10:30-0400 Body mass index (BMI) [Ratio] 45.55 kg/m2 Liyah Moe Other [employer] Other 12-13-2021 10:30-0400 Body weight 137.89 kg Liyah Moe Other [employer] Other 11-14-2021 08:42-0400 Body height 174 cm Jessica Young PA-C Work Phone: [facility] 11-14-2021 08:42-0400 Body weight 132 kg Jessica Young PA-C Work Phone: [facility] 11-14-2021 08:42-0400 Diastolic blood pressure 68 mm[Hg] Jessica Young PA-C Work Phone: [facility] 11-14-2021 08:42-0400 Heart rate 88 /min Jessica Young PA-C Work Phone: [facility] 11-14-2021 08:42-0400 Systolic blood pressure 112 mm[Hg] Jessica Young PA-C Work Phone: [facility] 09-18-2021 12:00-0400 Body temperature 97.9 [degF] Infusion 2 Work Phone: [facility] 09-18-2021 12:00-0400 Diastolic blood pressure 89 mm[Hg] Infusion 2 Work Phone: [facility] 09-18-2021 12:00-0400 Heart rate 93 /min Infusion 2 Work Phone: [facility] 09-18-2021 12:00-0400 Respiratory rate 16 /min Infusion 2 Work Phone: [facility] 09-18-2021 12:00-0400 Systolic blood pressure 131 mm[Hg] Infusion 2 Work Phone: [facility] 09-18-2021 08:00-0400 Body height 174 cm Infusion 2 Work Phone: [facility] 09-18-2021 08:00-0400 Body weight 117.94 kg Infusion 2 Work Phone: [facility] 09-05-2021 10:45-0400 Diastolic blood pressure 68 mm[Hg] [facility] Work Phone: [facility] 09-05-2021 10:45-0400 Heart rate 91 /min [facility] Work Phone: [facility] 09-05-2021 10:45-0400 Respiratory rate 18 /min Services [facility] Work Phone: [facility] 09-05-2021 10:45-0400 SaO2% (BldA) [Mass fraction] 99 % [facility] Work Phone: [facility] 09-05-2021 10:45-0400 Systolic blood pressure 122 mm[Hg] [facility] Work Phone: [facility] 09-05-2021 08:26-0400 Body height 173.99 cm [facility] Work Phone: [facility] 09-05-2021 08:26-0400 Body mass index (BMI) [Ratio] 43.4 kg/m2 [facility] Work Phone: [facility] 09-05-2021 08:26-0400 Body temperature 98.2 [degF] [facility] Work Phone: [facility] 09-05-2021 08:26-0400 Body weight 131.54 kg Services [facility] Work Phone: [facility] 08-14-2021 11:30-0400 Body height 173.99 cm Liyah Laurenormack Other [employer] Other 08-14-2021 11:30-0400 Body mass index (BMI) [Ratio] 43.45 kg/m2 Liyah Moe Other [employer] Other 08-14-2021 11:30-0400 Body weight 131.54 kg Liyah Laurenormack Other [employer] Other Encounters Encounter Date Encounter Type Care Provider Facility Start: 02-17-2025 ambulatory [facility] Facility:[facility] Start: 01-11-2025 End: 01-11-2025 ambulatory [facility] Start: 01-08-2025 End: 01-08-2025 ambulatory [facility] Start: 01-07-2025 End: 01-07-2025 ambulatory [facility] Start: 01-06-2025 End: 01-06-2025 [facility] Start: 01-05-2025 End: 01-07-2025 Telephone encounter Loree Suggs [facility] Comment on above: Prior Authorization (TEMOZOLOMIDE) Start: 01-05-2025 End: 01-05-2025 ambulatory [facility] Start: 01-04-2025 End: 01-04-2025 ambulatory [facility] Start: 01-01-2025 End: 01-01-2025 ambulatory [facility] Start: 12-31-2024 End: 12-31-2024 Sofy Mendoza MD Work Phone: Meera Alves [facility] - Medical Oncology Comment on above: GBM (glioblastoma mu ltiforme) ([facility]) Start: 12-30-2024 End: 12-30-2024 ambulatory [facility] Start: 12-29-2024 End: 12-29-2024 ambulatory NON STAFF [facility] Work Phone: Start: 12-29-2024 End: 12-29-2024 Patient encounter procedure Stephanie Albarado Henna DO -[facility] Work Phone: Start: 12-29-2024 End: 12-29-2024 ambulatory [facility] Start: 12-25-2024 End: 12-25-2024 Office outpatient visit 25 minutes Guillermo Mendoza MD Work Phone: [facility] - Medical Oncology Comment on above: GBM (glioblastoma mu ltiforme) ([facility]) (Primary Dx) Start: 12-25-2024 End: 12-25-2024 [facility] Comment on above: GBM (glioblastoma mu ltiforme) ([facility]) (Primary Dx); Thrombocytopenia Start: 12-24-2024 End: 12-24-2024 ambulatory [facility] Start: 12-23-2024 End: 12-23-2024 ambulatory [facility] Start: 12-22-2024 End: 12-22-2024 ambulatory [facility] Start: 12-19-2024 End: 12-19-2024 [facility] Start: 12-18-2024 End: 12-18-2024 ambulatory [facility] Start: 12-17-2024 End: 12-17-2024 ambulatory [facility] Start: 12-16-2024 End: 12-16-2024 ambulatory [facility] Start: 12-15-2024 End: 12-15-2024 Orders Only Recto [facility] - Radiation Oncology Start: 12-14-2024 End: 12-14-2024 ambulatory [facility] Start: 12-11-2024 End: 12-11-2024 ambulatory [facility] Start: 12-10-2024 End: 12-10-2024 Documentation procedure She Lynn [facility] Medical Oncology Start: 12-10-2024 End: 12-10-2024 Office outpatient visit 25 minutes Guillermo Mendoza MD Work Phone: Meera Albarado [place] [facility] - Medical Oncology Comment on above: GBM (glioblastoma mu ltiforme) ([facility]) (Primary Dx); Thrombocytopenia Start: 12-10-2024 End: 12-10-2024 ambulatory [facility] Start: 12-09-2024 End: 12-09-2024 ambulatory [facility] Start: 12-08-2024 End: 12-08[facility] Start: 12-07-2024 End: 12-07-2024 [facility] Start: 12-04-2024 End: 12-04-2024 Documentation procedure She Lynn [facility] Medical Oncology Start: 12-03-2024 ambulatory [facility] Start: 12-03-2024 End: 12-03-2024 Documentation procedure Nancy Hernandez RN [facility] Oncology - Radiation Oncology Start: 11-30-2024 End: 11-30-2024 Documentation procedure Nancy Hernandez RN [facility] Oncology - Radiation Oncology Start: 11-27-2024 End: 11-27-2024 Departed Referred Miri Lantigua DO -[facility] Start: 11-27-2024 End: 11-29-2024 Clinisync Result Encounter Generic External Data Provider [facility] External Department Unsolicited Start: 11-27-2024 End: 11-29-2024 Clinisync Result Encounter Generic External Data Provider [facility] External Department Unsolicited Start: 11-27-2024 End: 11-27-2024 Orders Only Recto [facility] - Radiation Oncology Start: 11-25-2024 End: 11-30-2024 ambulatory [facility] Start: 11-24-2024 End: 11-24-2024 Documentation procedure Priyanka Albarado [facility] - Medical Oncology Start: 11-24-2024 End: 11-24-2024 ambulatory HENRY MATTHEWS Facility:[facility] Start: 11-24-2024 End: 11-24-2024 Patient encounter procedure REGINA MATTHEWS [facility] Start: 11-19-2024 End: 11-19-2024 Patient encounter procedure Storm Chapman MD -[facility] [place] Work Phone: Start: 11-19-2024 End: 11-19-2024 ambulatory NON STAFF [facility] Work Phone: Comment on above: GBM (glioblastoma mu ltiforme) ([facility]) (Primary Dx) Start: 11-19-2024 ambulatory [facility] Start: 11-13-2024 End: 11-13-2024 Telephone encounter Guillermo Mendoza MD Work Phone: [facility] Oncology - Radiation Oncology Start: 11-13-2024 End: 11-13-2024 ambulatory RICHIE [facility] Start: 11-13-2024 End: 11-13-2024 ambulatory [facility] Start: 11-13-2024 End: 11-13-2024 ambulatory RICHIE SANDOVAL [facility] Start: 11-12-2024 End: 11-12-2024 Office outpatient new 60 minutes Guillermo Mendoza MD Work Phone: [facility] - Medical Oncology Comment on above: GBM (glioblastoma mu ltiforme) ([facility]) (Primary Dx) Start: 11-12-2024 End: 11-12-2024 Orders Only Nancy Hernandez RN [facility] Oncology - Radiation Oncology Comment on above: Glioblastoma ([facility]) (Primary Dx) Start: 11-11-2024 End: 11-11-2024 Telephone encounter Ellie Coleman CMA [facility] Hematology Oncology, A Department of [facility] Comment on above: office note Received referral Ra diation consult lvm Start: 11-10-2024 End: 11-10-2024 Postop follow up visit related to original px Reji Garcia STUCCO APPLICATOR-GEOTECHNICIAL PROPERTIES TECHNICIAN Work Phone: [facility] Physicians NeuroSurgery Comment on above: Brain tumor ([facility] ) (Primary Dx); Double vision Start: 11-10-2024 End: 11-10-2024 ambulatory [facility] Start: 11-07-2024 End: [...] Unsolicited Start: 10-17-2024 End: 10-17-2024 ambulatory [facility] Work Phone: Start: 10-17-2024 End: 10-17-2024 Departed Referred Tripp Gruber MD Work Phone: [facility] Start: 10-09-2024 End: 10-09-2024 ambulatory HENRY MATTHEWS Facility:[facility] Start: 10-06-2024 ambulatory Eliazar Brooks Facility :[facility] Start: 09-29-2024 End: 09-29-2024 Telephone encounter Anya Son[facility] Comment on above: incision Start: 09-19-2024 End: 09-19-2024 ambulatory UNKNOWN PROVIDER Facility:[facility] Start: 09-18-2024 End: 09-29-2024 Evaluation and management of inpatient Lewis Botello Work Phone: [facility] - GEN 9 Acute Start: 09-18-2024 End: 09-18-2024 Clinisync Result Encounter Sary Colin MD Work Phone: [facility] External [facility] Unsolicited Start: 09-18-2024 End: 09-18-2024 Clinisync Result Encounter Sary Colin MD Work Phone: [facility] External Department Unsolicited Start: 09-16-2024 End: 09-16-2024 ambulatory ADONAY CASTILLO [facility] Start: 09-16-2024 End: 09-16-2024 Office outpatient new 20 minutes Adonay Castillo STUCCO APPLICATOR-GEOTECHNICIAL PROPERTIES TECHNICIAN Work Phone: [facility] - [facility] Comment on above: Dermatitis associate d with moisture (Primary Dx); Pressure injury of left buttock, stage 2 ([facility]) Start: 08-28-2024 End: 09-01-2024 Emergency department patient visit MUNIRA HARO [facility] Start: 08-28-2024 End: 09-01-2024 Evaluation and management of inpatient FRED Tevin GRACIA [facility] Start: 08-23-2024 End: 08-25-2024 Clinisync Result Encounter Generic External Data Provider [facility] External Department Unsolicited Start: 08-23-2024 End: 08-25-2024 Clinisync Result Encounter Generic External Data Provider [facility] External Department Unsolicited Start: 08-23-2024 End: 08-23-2024 Refill Fred Gracia MANAGER ENTERPRISE Work Phone: [facility] Comment on above: 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 (Primary Dx); Yeast dermatitis Start: 08-22-2024 End: 08-22-2024 ambulatory Tripp Gruber [facility] Work Phone: Start: 08-22-2024 End: 08-22-2024 Departed Referred Tripp Gruber MD Work Phone: [facility] Start: 08-22-2024 End: 08-23-2024 Clinisync Result Encounter Generic External Data Provider [facility] External Department Unsolicited Start: 08-22-2024 End: 08-23-2024 Clinisync Result Encounter Generic External Data Provider [facility] External Department Unsolicited Start: 08-18-2024 End: 08-18-2024 Bamboo flowsheet Fred Gracia MANAGER ENTERPRISE Work Phone: [facility] Start: 08-18-2024 End: 08-18-2024 Bamboo flowsheet Fred Gracia MANAGER ENTERPRISE Work Phone: [facility] Start: 08-18-2024 End: 08-18-2024 Office outpatient visit 25 minutes Fred Gracia MANAGER ENTERPRISE Work Phone: [facility] Comment on above: Generalized anxiety disorder with panic attacks (CMS/HCC) (Primary Dx); Morbid (severe) obesity due to excess calories (CMS/HCC); Major depressive disorder, recurrent, moderate (CMS/HCC); Primary insomnia Start: 08-18-2024 End: 08-18-2024 ambulatory FRED BASIL Not Available Start: 08-03-2024 End: 08-03-2024 Telephone encounter Elva Rodriguez MANAGER ENTERPRISE Work Phone: [facility] Start: 07-07-2024 End: 07-07-2024 Bamboo flowsheet Fred Gracia MANAGER ENTERPRISE Work Phone: [facility] Start: 07-07-2024 End: 07-07-2024 Bamboo flowsheet Fred Basil MANAGER ENTERPRISE Work Phone: [facility] Start: 07-07-2024 End: 07-07-2024 ambulatory FRED GRACIA Not Available Start: 06-30-2024 End: 06-30-2024 Clinisync Result Encounter Fred Basil MANAGER ENTERPRISE Work Phone: [facility] External Department Unsolicited Start: 06-30-2024 End: 06-30-2024 Clinisync Result Encounter Fred Basil MANAGER ENTERPRISE Work Phone: [facility] External Department Unsolicited Start: 06-17-2024 End: 06-17-2024 Bamboo flowsheet Sherrie Rothmantrick MANAGER ENTERPRISE Work Phone: [facility] Start: 06-17-2024 End: 06-17-2024 Bamboo flowsheet Sherrie Boone MANAGER ENTERPRISE Work Phone: [facility] Start: 06-17-2024 End: 06-17-2024 Office outpatient visit 10 minutes Sherrie Augustink MANAGER ENTERPRISE Work Phone: [facility] Comment on above: Acute non-recurrent frontal sinusitis (Primary Dx) Start: 06-17-2024 End: 06-17-2024 ambulatory SHERRIE BOONE Not Available Start: 05-18-2024 End: 05-18-2024 Bamboo flowsheet Fred Basil MANAGER ENTERPRISE Work Phone: [facility] Start: 05-18-2024 End: 05-18-2024 Bamboo flowsheet Fred Basil MANAGER ENTERPRISE Work Phone: [facility] Start: 05-18-2024 End: 05-18-2024 Patient encounter procedure Fred Gracia MANAGER ENTERPRISE Work Phone: [facility] Comment on above: Encounter for subseq uent annual wellness visit (AWV) in Medicare patient (Primary Dx); LORENZO (obstructive sleep apnea); Multiple sclerosis ([facility]); Primary insomnia; Class 3 severe obesity without serious comorbidity with body mass index (BMI) of 45.0 to 49.9 in adult, unspecified obesity type ([facility]); Encounter for screening mammogram for malignant neoplasm of breast; Moderate episode of recurrent major depressive disorder ([facility]); Generalized anxiety disorder with panic attacks ([facility]) Start: 05-18-2024 End: 05-18-2024 ambulatory FRED BASIL Not Available Start: 05-07-2024 End: 05-07-2024 Orders Only Jessica Clarke PA-C Work Phone: [facility] Start: 05-04-2024 End: 05-05-2024 Telephone encounter Aria Kumar PT [facility] Comment on above: re: PT Eval tomorrow ; Call Back Start: 04-27-2024 End: 04-27-2024 Telephone encounter Fred Gracia MANAGER ENTERPRISE Work Phone: [facility] Start: 04-27-2024 End: 04-27-2024 Patient encounter procedure Yahaira Vazquez PA Work Phone: [facility] Comment on above: Adhesive capsulitis of left shoulder (Primary Dx); S/P arthroscopy of left shoulder Start: 04-27-2024 End: 04-27-2024 ambulatory YAHAIRA VAZQUEZ Not Available Start: 04-26-2024 End: 04-27-2024 Refill Fred Bonitaz MANAGER ENTERPRISE Work Phone: [facility] Comment on above: Anxiety and depressi on ([facility]) Start: 04-15-2024 End: 04-15-2024 Refill Fred Aichholz MANAGER ENTERPRISE Work Phone: [facility] Comment on above: Acute cough (Primary Dx) Start: 04-14-2024 End: 04-14-2024 Refill Fred Aichholz MANAGER ENTERPRISE Work Phone: [facility] Comment on [...] 03-25-2024 End: 03-25-2024 Bamboo flowsheet Inderjit Pelletier WORKERS' COMPENSATION MEDIATOR [facility] Start: 03-25-2024 End: 03-25-2024 Bamboo flowsheet Inderjit Pelletier WORKERS' COMPENSATION MEDIATOR [facility] Start: 03-25-2024 End: 03-25-2024 ambulatory Inderjit Pelletier WORKERS' COMPENSATION MEDIATOR [facility] Comment on above: Left shoulder pain, unspecified chronicity (Primary Dx); S/P arthroscopy of left shoulder Start: 03-13-2024 End: 03-13-2024 Bamboo flowsheet Inderjit Pelletier WORKERS' COMPENSATION MEDIATOR [facility] Start: 03-13-2024 End: 03-13-2024 Bamboo flowsheet Inderjit Pelletier WORKERS' COMPENSATION MEDIATOR [facility] Start: 03-13-2024 End: 03-13-2024 ambulatory Inderjit Pelletier WORKERS' COMPENSATION MEDIATOR [facility] Comment on above: Left [...] Start: 03-06-2024 End: 03-06-2024 ambulatory Inderjit Liyah WORKERS' COMPENSATION MEDIATOR [facility] Comment on above: S/P arthroscopy of l eft shoulder (Primary Dx) Start: 03-05-2024 End: 03-05-2024 Bamboo flowsheet Fred Basil MANAGER ENTERPRISE Work Phone: [facility] Start: 03-05-2024 End: 03-05-2024 Bamboo flowsheet Fred Harveyberenicevicky MANAGER ENTERPRISE Work Phone: [facility] Start: 03-05-2024 End: 03-05-2024 Office outpatient visit 15 minutes Fred Basil MANAGER ENTERPRISE Work Phone: [facility] Comment on above: Anxiety and depressi on (CMS/HCC) (Primary Dx); Needs flu shot; Candidiasis of skin Start: 03-05-2024 End: 03-05-2024 ambulatory FRED BASIL Not Available Start: 03-03-2024 End: 03-03-2024 Bamboo flowsheet Inderjit Liyah WORKERS' COMPENSATION MEDIATOR [facility] Start: 03-03-2024 End: 03-03-2024 Bamboo flowsheet Inderjit Liyah WORKERS' COMPENSATION MEDIATOR [facility] Start: 03-03-2024 End: 03-03-2024 ambulatory Inderjit Liyah WORKERS' COMPENSATION MEDIATOR [facility] Comment on above: S/P arthroscopy of l eft shoulder (Primary Dx) Start: 02-28-2024 End: 02-28-2024 Bamboo flowsheet Arai Kumar PT [facility] PT Start: 02-28-2024 [...] to same day surgery center Eliazar Brooks [facility] Start: 02-10-2024 End: 02-10-2024 ambulatory [place]iazar Brooks [place] [place]: 02-05-2024 End: 02-05-2024 ambulatory [facility] [place] Start: 02-03-2024 End: 02-03-2024 Office outpatient visit 15 minutes Fred Gracia MANAGER ENTERPRISE Work Phone: [facility] Comment on above: Diverticulitis (Prim donna Dx); Class 3 severe obesity without serious comorbidity with body mass index (BMI) of 45.0 to 49.9 in adult, unspecified obesity type ([facility]) Start: 02-03-2024 End: 02-03-2024 Bamboo flowsheet Fred Gracia MANAGER ENTERPRISE Work Phone: [facility] Start: 02-03-2024 End: 02-03-2024 Bamboo flowsheet Fred Gracia MANAGER ENTERPRISE Work Phone: [facility] Start: 02-03-2024 [...] Start: 01-29-2024 End: 01-29-2024 Orders Only Fred Basil MANAGER ENTERPRISE Work Phone: [facility] Comment on above: Multiple sclerosis ( CMS/HCC) (Primary Dx) Start: 01-23-2024 End: 01-23-2024 Clinisync Result Encounter Fred Basil MANAGER ENTERPRISE Work Phone: [facility] External Department Unsolicited Start: 01-23-2024 End: 01-23-2024 Clinisync Result Encounter Fred Ascenciovicky MANAGER ENTERPRISE Work Phone: [facility] External [facility] Unsolicited Start: 01-23-2024 End: 01-23-2024 ambulatory SHERRIE BOONE Not Available Start: 01-14-2024 End: 01-17-2024 Telephone encounter Jessica Clarke PA-C Work Phone: [facility] Comment on above: Orders Start: 01-06-2024 End: 01-06-2024 ambulatory FRED AICHHOLZ Not Available Start: 12-24-2023 End: 01-10-2024 Pre-admission assessment Eliazar Brooks [facility] Start: 12-24-2023 End: 12-24-2023 ambulatory ELIAZAR BROOKS Not Available Start: 12-19-2023 [facility] Work Phone: Infusion Start: 12-02-2023 End: 12-02-2023 ambulatory FRED AICHHOLZ Not Available Start: 11-27-2023 Orders Only Jessica Almodovar Work Phone: [facility] Comment on above: Multiple sclerosis ( HCC) (Primary Dx); Vitamin D deficiency Start: 11-26-2023 Orders Only Sarthak Escobar MD, PhD Work Phone: [facility] Start: 11-13-2023 End: 11-13-2023 ambulatory YAHAIRA D HILLS Not Available Start: 11-05-2023 End: 11-05-2023 ambulatory YAHAIRA D HILLS Not Available Start: 10-10-2023 End: 10-10-2023 ambulatory FRED GRACIA Not Available Start: 10-07-2023 End: 10-07-2023 ambulatory YAHAIRA D HILLS Not Available Start: 09-06-2023 End: 09-06-2023 ambulatory Lashaun Christina PA-C Work Phone: [facility] Comment on above: Left arm weakness (P rimary Dx) Start: 09-06-2023 End: 09-06-2023 Telemedicine consultation with patient Lashaun Harris PA-C Work Phone: [facility] Start: 08-22-2023 ambulatory Jessica Nance-C Work Phone: [facility] Comment on above: Spine Start: 08-22-2023 Chart abstracting None (Historical) Neurology Start: 08-21-2023 Telephone encounter Jessica IBANEZ-C Work Phone: [facility] Comment on above: Patient Question Start: 08-08-2023 ambulatory ELIAZAR Saleh ty:[facility] Start: 07-15-2023 Telephone encounter Jessica IBANEZ-C Work Phone: [facility] Comment on above: Orders (Order for MR I needed for Brain and Cervical) Start: 07-10-2023 End: 07-10-2023 ambulatory JESSICA CLARKE Facility:[facility] Start: 07-10-2023 End: 07-10-2023 Patient [...] 06-26-2023 E-mail encounter fro m caregiver Paris Toledo DO Work Phone: [facility] Start: 06-26-2023 End: 06-26-2023 Office outpatient visit 25 minutes Shaikh Jonn BENITEZ Work Phone: [facility] Comment on above: Multiple sclerosis ( CMS/HCC) (Primary Dx); Primary hypertension (CMS/HCC); Anxiety and depression (CMS/HCC); COPD with exacerbation (CMS/HCC); Non-recurrent acute suppurative otitis media of left ear without spontaneous rupture of tympanic membrane Start: 05-22-2023 End: 05-22-2023 ambulatory SARTHAK LUZ Facility:[facility] Start: 05-02-2023 End: 05-02-2023 ambulatory Jessica Vince PA-C Work Phone: [facility] Comment on above: Multiple sclerosis ( HCC) (Primary Dx) Start: 05-02-2023 End: 05-02-2023 Telemedicine consultation with patient Jessica Clarke PA-C Work Phone: [facility] Start: 04-22-2023 ambulatory Jessica Young P A-C Work Phone: [facility] Comment on above: Skull Start: 04-19-2023 ambulatory Jessica Young P A-C Work Phone: [facility] Comment on above: Skull Start: 10-17-2022 ambulatory Valdez Sousa Work Phone: [facility] [place] Start: 10-01-2022 End: 10-01-2022 ambulatory GEOTECHNICIAL PROPERTIES TECHNICIAN FRED BASIL Facility: Start: 10-01-2022 ambulatory GEOTECHNICIAL PROPERTIES TECHNICIAN FRED BASIL Facil ity:[facility] Start: 09-21-2022 End: 09-21-2022 ambulatory YAHAIRA MCKEON . Facility:[facility] Start: 08-30-2022 Orders Only Jessica Almodovar Work Phone: [facility] Comment on above: Multiple sclerosis, relapsing-remitting (HCC) (Primary Dx) Start: 06-05-2022 End: 06-06-[address] DOCTOR BULL Facility:[facility] Start: 04-18-2022 End: 04-18-2022 ambulatory Liyah Rosa Other [facility] [employer] Other Start: 04-18-2022 Office outpatient vi sit 15 minutes Liyah Rosa [facility] Gastroenterology Start: 03-30-2022 Telephone encounter Valdez aleman MD Work Phone: [address] [place] [address] Comment on above: Patient Update Start: 03-22-2022 End: 03-22-2022 Patient encounter procedure Jessica Clarke PA-C Work Phone: [facility] Comment on above: Multiple sclerosis, relapsing-remitting (HCC) (Primary Dx) Start: 03-22-2022 End: 03-22-2022 ambulatory In[facility] 10 Work Phone: Multiple Sclerosis Comment on above: Multiple sclerosis ( HCC) (Primary Dx) Start: 03-16-2022 Orders Only Sarthak Escobar MD, PhD Work Phone: [facility] Start: 03-07-2022 End: 03-07-2022 ambulatory RUBINA GRACIA Facility:[facility] Start: 03-06-2022 ambulatory Valdez Sousa Work Phone: [facility] Start: 02-12-2022 Telephone encounter Jessica mireles PA-C Work Phone: Neurology Comment on above: Appointment (Called pt LVM to see about setting up pt and psycology.) Start: 01-16-2022 End: 01-16-2022 ambulatory Jojo Pickard OTR/L Work Phone: [facility] Comment on above: Multiple sclerosis, relapsing-remitting (HCC) Start: 12-13-2021 End: 12-13-2021 ambulatory Liyah Rosa Other [email or web address] Other Start: 12-13-2021 Office outpatient vi sit 15 minutes Liyah Rosa [facility] Start: 11-15-2021 ambulatory Valdez Sousa Work Phone: [facility] [place] Start: 11-14-2021 End: 11-14-2021 Patient encounter procedure Jessica Clarke PA-C Work Phone: [facility] Comment on above: Multiple sclerosis, relapsing-remitting (HCC) (Primary Dx) Start: 11-14-2021 End: 11-14-2021 Subsequent hospital visit by physician Cara Manning (I-Stat/3t) Work Phone: Radiology Comment on above: Multiple sclerosis, relapsing-remitting (HCC) [G35] Start: 09-18-2021 End: 09-18-2021 ambulatory Infusion [place] Chair 2 Work Phone: Multiple Sclerosis Comment on above: Multiple sclerosis ( HCC) (Primary Dx); Multiple sclerosis, relapsing-remitting (HCC) Start: 09-15-2021 End: 09-15-2021 ambulatory Jessica Clarke PA-C Work Phone: [facility] Comment on above: Multiple sclerosis, relapsing-remitting (HCC) Start: 09-15-2021 End: 09-15-2021 Telemedicine consultation with patient Jessica Clarke HENRY Work Phone: [facility] Start: 09-14-2021 End: 09-14-2021 ambulatory Liyah Rosa Other [email or web address] Other Start: 09-14-2021 Telephone encounter Liyah Carlisle ck [facility] Start: 09-05-2021 End: 09-05-2021 Admission to same day surgery [facility] Work Phone: [facility] Start: 09-01-2021 End: 09-01-2021 Patient encounter procedure [facility] Work Phone: [facility] [employer] Start: 08-14-2021 End: 08-14-2021 ambulatory Liyah Rosa Other [facility] [employer] Other Start: 08-14-2021 Office outpatient ne w 45 minutes Liyah Moe [facility] Start: 07-28-2020 End: 07-28-2020 Patient encounter procedure Jazmin Shaikh Work Phone: [facility] Work Phone: Start: 12-20-2016 End: 12-21-2016 Ambulatory FRANCES L GEOTECHNICIAL PROPERTIES TECHNICIAN HELENA Facility:[facility] Start: 11-27-2012 Patient encounter status Jessica Clakre PA-C Work Phone: [facility] Procedures Date Procedure Procedure Detail Performing Clinician Start: 12-10-2024 Follow-up visit Follow-up LI Zuhair REJI Start: 11-27-2024 BLOOD CULTURE 1 Generic External Data Provider Start: 11-27-2024 Urine culture Alonzo das MD Work Phone: Start: 11-10-2024 Follow-up visit Follow-up CINDI GARCIA Start: 11-07-2024 ALL BASIC METABOLIC PANEL Sary Colin MD Work Phone: Start: 10-17-2024 Urine culture Tripp mane MD Work Phone: Start: 10-17-2024 [place]INE CULTURE [place] [facility] External Data Provider Start: 09-28-2024 Radiologic exam swal low function contrast study Jesi E Phlipot [employer]UCCO APPLICATOR-GEOTECHNICIAL PROPERTIES TECHNICIAN Work Phone: Start: 09-28-2024 Basic metabolic pane l calcium total Sandie IBANEZ Work Phone: Start: 09-27-2024 Basic metabolic pane l calcium total Sandie IBANEZ Work Phone: Start: 09-27-2024 Radiologic exam ches t single view Anjelica Venegas [employer] APPLICATOR-GEOTECHNICIAL PROPERTIES TECHNICIAN Work Phone: Start: 09-25-2024 Assay of magnesium Maureen Espinal MD Work Phone: Start: 09-25-2024 Basic metabolic pane l calcium total Sandie IBANEZ Work Phone: Start: 09-24-2024 Radiologic exam swal low function contrast study Chip Danielan [employer] APPLICATOR-GEOTECHNICIAL PROPERTIES TECHNICIAN Work Phone: Start: 09-24-2024 Comprehensive metabo lic panel Jair Espinal MD Work Phone: Start: 09-23-2024 Ct head/brain w/o co ntrast material Ibeth ROMOC Work Phone: Start: 09-23-2024 Radiologic exam abdo men 1 view Jair Espinal MD Work Phone: Start: 09-23-2024 BEDSIDE GLUCOSE Xena Larios MD Work Phone: Start: 09-23-2024 End: 09-23-2024 SYNAPTIVE CRANIOTOMY EXCISION TUMOR Jair Espinal MD Work Phone: Start: 09-23-2024 Radiologic exam ches t single view Anjelica Venegas [employer] APPLICATOR-GEOTECHNICIAL PROPERTIES TECHNICIAN Work Phone: Start: 09-23-2024 Basic metabolic pane l calcium total Sandie IBANEZ Work Phone: Start: 09-23-2024 REPEATED ABORH Xena Larios MD Work Phone: Start: 09-22-2024 Antibody screen Julio merchant MD Work Phone: Start: 09-22-2024 Antibody screen FRED BISHOP Comment on above: Performed By: #### [facility] #### [facility] ([facility]) [address] [place] [address] VIR Start: 09-22-2024 Blood typing serologic abo Laura Gore [employer]UCCO APPLICATOR-GEOTECHNICIAL PROPERTIES TECHNICIAN Work Phone: Start: 09-22-2024 Electrolyte panel Miriam Church MD Work Phone: Start: 09-22-2024 REPEATED ABORH Laura Garcia Bao [employer]UCCO APPLICATOR-[facility] Work Phone: Start: 09-22-2024 HC ECHO COMPLETE W CONTRAST Melo Keri Gill PA-C Work Phone: Start: 09-22-2024 Electrolyte panel Miriam Church MD Work Phone: Start: 09-22-2024 Ecg routine ecg w/le ast 12 lds trcg only w/o i&r Anjelicapascual Venegas [facility] Work Phone: Start: 09-22-2024 Basic metabolic pane l calcium total Sandie IBANEZ Work Phone: Start: 09-22-2024 Drug screen quantita tive vancomycin Anjelica L Rubi [facility] Work Phone: Start: 09-21-2024 Electrolyte panel Miriam Church MD Work Phone: Start: 09-21-2024 Protein electrophore tic fractj&quantj serum Miriam Church MD Work Phone: Start: 09-21-2024 Drug screen quantita tive vancomycin Rom Petrisor Avasilcai [facility] Work Phone: Start: 09-21-2024 Electrolyte panel Miriam Church MD Work Phone: Start: 09-21-2024 Basic metabolic pane l calcium total Sandie IBANEZ Work Phone: Start: 09-20-2024 Drug screen quantita tive vancomycin Rom Petrisor Avasilcai [employer]UCCO APPLICATOR-[facility] Work Phone: Start: 09-20-2024 Electrolyte panel Miriam Church MD Work Phone: Start: 09-20-2024 Radiologic exam abdo men 1 view Steffanie E Walker [employer]UCCO APPLICATOR-GEOTECHNICIAL PROPERTIES TECHNICIAN Work Phone: Start: 09-20-2024 Ct abdomen & pelvis w/o contrast material Hiram Jones MD Work Phone: Start: 09-20-2024 Electrolyte panel Miriam Church MD Work Phone: Start: 09-20-2024 End: 09-20-2024 Culture bacterial blood aerobic w/id isolates Steffanie Lozano STUCCO APPLICATOR-GEOTECHNICIAL PROPERTIES TECHNICIAN Work Phone: Start: 09-20-2024 Basic metabolic pane l calcium total Sandie IBANEZ Work Phone: Start: 09-20-2024 Mri brain brain stem w/o w/contrast material Chip Zarate STUCCO APPLICATOR-GEOTECHNICIAL PROPERTIES TECHNICIAN Work Phone: Start: 09-19-2024 Electrolyte panel Miriam [...] TROP I, HIGH SENSITI VITY 1 HOUR Enddipak Ontiveros MD Work Phone: Start: 09-19-2024 Urinalysis [...] Data Provider Start: 08-22-2024 [place] CULTURE [place] [facility] n[facility] External Data Provider Start: 08-22-2024 Urine culture Tripp mane MD Work Phone: Start: 06-30-2024 MM TOMOSYNTHESIS SCR EENING BI Fred Gracia MANAGER [employer]TERPRISE Work Phone: Start: 06-30-2024 Mammography Fred rivera MANAGER ENTERPRISE Work Phone: Start: 04-27-2024 Arthrocentesis aspir &/inj major jt/bursa w/us Yahaira Vazquez PA Work Phone: Start: 02-25-2024 Radex shoulder compl ete minimum 2 views Eliazar Brooks DO Work Phone: Start: 02-10-2024 Arthroscopy of shoulder Eliazar Brooks Start: 01-23-2024 TBH UA (CLEAN/CATCH) MICROSCOPIC IF INDICATE Fred Gracia MANAGER ENTERPRISE Work Phone: Start: 03-07-2022 Microscopic observat ion [...] Diagnostic endoscopi c examination on colon Services [facility] Work Phone: Start: 09-01-2021 SARS Ant[facility]LFIA) [facility] Work Phone: Start: 07-28-2020 Imm. administration COVID19 [employer] Work Phone: Start: 07-28-2020 SARS-CoV-2 vaccine, 0.5ml Rachel Joyce [employer] Work Phone: Start: 09-17-2012 Mammography Shaikh Ilan gimenez MD Work Phone: Ectopic (disorder) Eliazar Brooks Entire carpal canal (body structure) Eliazar Brooks Ligation of fallopian tube Tevin MATTHEWS Plan of Treatment Date Care Activity Detail Author Start: 09-22-2027 Screening for malignant neoplasm of colon [facility] Start: 10-02-2026 DTaP,Tdap and Td Vaccines (2 - Td or Tdap) DTaP,Tdap and Td Vaccines (2 - Td or Tdap) [facility] Start: 10-02-2026 Urine microalbumin profile [facility] Start: 09-18-2026 Lipid 1996 panel - Serum or Plasma Lipid Screening [facility] Start: 09-18-2026 Lipid panel Lipid Screening [facility] Start: 09-18-2026 LIPID SCREEN LIPID SCREEN [facility] Start: 05-22-2026 Diabetes Screening Diabetes Screening [facility] Start: 12-25-2025 Tobacco Screening Tobacco Screening [facility] Start: 12-24-2025 Adult BMI Screening Adult BMI Screening [facility] Start: 12-10-2025 Adult BMI Screening Adult BMI Screening [facility] Start: 12-10-2025 Tobacco Screening Tobacco Screening [facility] Start: 11-13-2025 Adult BMI Screening Adult BMI Screening [facility] Start: 11-12-2025 Tobacco Screening Tobacco Screening [facility] Start: 11-10-2025 Adult BMI Screening Adult BMI Screening [facility] Start: 11-10-2025 Tobacco Screening Tobacco Screening [facility] Start: 11-08-2025 LIPID SCREEN LIPID SCREEN [facility] Start: 09-28-2025 Adult BMI Screening Adult BMI Screening [facility] Start: 09-23-2025 Tobacco Screening Tobacco Screening [facility] Start: 09-16-2025 Tobacco Screening Tobacco Screening [facility] Start: 09-01-2025 Adult BMI Screening Adult BMI Screening [facility] Start: 06-30-2025 Screening for malignant neoplasm of breast Mammogram [facility] Start: 05-18-2025 Medicare Annual Wellness (AWV) Medicare Annual Wellness (AWV) [facility] Start: 03-07-2025 Screening for malignant neoplasm of cervix [facility] Start: 03-04-2025 End: 03-04-2025 Patient encounter procedure 03/04/2025 11:15 AM EDT Office Visit Meera Alves [facility] - Medical Oncology [address] [place] [phone] Guillermo Mendoza MD [address] [facility] [address] [place] [phone] Meera Alves [facility] - Medical Oncology Start: 02-17-2025 End: 12-25-2025 MR Brain WO and W contrast IV MR brain with and without contrast Imaging Routine GBM (glioblastoma multiforme) ([facility]) Thrombocytopenia Expected: 02/17/2025, Expires: 12/25/2025 [facility] Phone: Comment on above: Expected: 02/17/2025, Expires: Start: 01-21-2025 End: 01-21-2025 Patient encounter procedure 01/21/2025 10:30 AM EDT Appointment [facility] Oncology - Radiation Oncology [address] [place] [phone] [facility]cology - Radiation Oncology Start: 01-20-2025 End: 01-20-2025 Patient encounter procedure 01/20/2025 10:30 AM EDT Appointment [facility] Oncology - Radiation Oncology [address] [place] [phone] [facility]cology - Radiation Oncology Start: 01-20-2025 End: 01-20-2025 Patient encounter procedure 01/20/2025 9:15 AM EDT Appointment [facility] Oncology - Radiation Oncology [address] [place] [phone] [facility]cology - Radiation Oncology Start: 01-19-2025 End: 01-19-2025 Patient encounter procedure 01/19/2025 10:30 AM EDT Appointment [facility] Oncology - Radiation Oncology [address] [place] [phone] [facility] Oncology - Radiation Oncology Start: 01-19-2025 End: 01-19-2025 [facility] Start: 01-18-2025 Influenza vaccination [facility] Start: 01-18-2025 End: 01-18-2025 Patient encounter procedure 01/18/2025 9:15 AM EDT Appointment [facility] Oncology - Radiation Oncology [address] [place] [phone] [facility] - Radiation Oncology Start: 01-15-2025 End: 01-15-2025 Patient encounter procedure 01/15/2025 10:30 AM EDT Appointment [facility] - Radiation Oncology [address] [place] [phone] [facility] - Radiation Oncology Start: 01-15-2025 End: 01-15-2025 Patient encounter procedure 01/15/2025 9:15 AM EDT Appointment [facility] - Radiation Oncology [address] [place] [phone] [facility] - Radiation Oncology Start: 01-14-2025 End: 01-14-2025 Patient encounter procedure 01/14/2025 10:30 AM EDT Appointment [facility] - Radiation Oncology [address] [place] [phone] [facility] - Radiation Oncology Start: 01-14-2025 End: 01-14-2025 Patient encounter procedure 01/14/2025 9:15 AM EDT Appointment [facility] - Radiation Oncology [address] [place] [phone] [facility] - Radiation Oncology Start: 01-13-2025 End: 01-13-2025 Patient encounter procedure 01/13/2025 10:30 AM EDT Appointment [facility] - Radiation Oncology [address] [place] [phone] [facility] - Radiation Oncology Start: 01-13-2025 End: 01-13-2025 Patient encounter procedure 01/13/2025 9:15 AM EDT Appointment [facility] - Radiation Oncology [address] [place] [phone] [facility] - Radiation Oncology Start: 01-12-2025 End: 01-12-2025 Patient encounter procedure 01/12/2025 10:30 AM EDT Appointment [facility] - Radiation Oncology [address] [place] [phone] [facility] - Radiation Oncology Start: 01-12-2025 End: 01-12-2025 Patient encounter procedure 01/12/2025 9:15 AM EDT Appointment [facility] - Radiation Oncology [address] [place] [phone] [facility] - Radiation Oncology Start: 01-11-2025 End: 01-11-2025 Patient encounter procedure [facility] - Radiation Oncology Start: 01-08-2025 End: 01-08-2025 Patient encounter procedure 01/08/2025 10:30 AM EDT Appointment [facility] - Radiation Oncology [address] [place] [phone] [facility] - Radiation Oncology Start: 01-08-2025 End: 01-08-2025 Patient encounter procedure 01/08/2025 9:15 AM EDT Appointment [facility] - Radiation Oncology [address] [place] [phone] [facility] - Radiation Oncology Start: 01-07-2025 End: 01-07-2025 Patient encounter procedure 01/07/2025 9:15 AM EDT Appointment [facility] - Radiation Oncology [address] [place] [phone] [facility] - Radiation Oncology Start: 01-06-2025 End: 01-06-2025 Patient encounter procedure 01/06/2025 9:15 AM EDT Appointment [facility] - Radiation Oncology [address] [place] [phone] [facility] - Radiation Oncology Start: 01-05-2025 End: 01-05-2025 Patient encounter procedure 01/05/2025 9:15 AM EDT Appointment [facility] - Radiation Oncology [address] [place] [phone] [facility] - Radiation Oncology Start: 01-04-2025 End: 01-04-2025 Patient encounter procedure [facility] - Radiation Oncology Start: 01-01-2025 End: 01-01-2025 Patient encounter procedure 01/01/2025 9:15 AM EDT Appointment [facility] - Radiation Oncology [address] [place] [phone] [facility] - Radiation Oncology Start: 12-31-2024 End: 12-31-2024 Patient encounter procedure 12/31/2024 9:15 AM EDT Appointment [facility] - Radiation Oncology [address] [place] [phone] [facility] - Radiation Oncology Start: 12-30-2024 End: 12-30-2024 Patient encounter procedure 12/30/2024 9:15 AM EDT Appointment [facility] - Radiation Oncology [address] [place] [phone] [facility] - Radiation Oncology Start: 12-29-2024 End: 12-29-2024 Patient encounter procedure 12/29/2024 9:15 AM EDT Appointment [facility] - Radiation Oncology [address] [place] [phone] [facility] - Radiation Oncology Start: 12-28-2024 End: 12-28-2024 Patient encounter procedure [facility] - Radiation Oncology Start: 12-25-2024 End: 12-25-2024 Patient encounter procedure [facility] - Radiation Oncology Start: 12-24-2024 End: 12-24-2024 Patient encounter procedure 12/24/2024 2:10 PM EDT Office Visit [facility] [address] [place] [phone] Jair Espinal MD [address] [place] [phone] [facility] Start: 12-24-2024 End: 12-24-2024 Patient encounter procedure 12/24/2024 9:15 AM EDT Appointment [facility] Radiation Oncology [address] [place] [address] [facility] Start: 12-23-2024 End: 12-23-2024 Patient encounter procedure 12/23/2024 9:15 AM EDT Appointment [facility] On[facility] [address] [place] [phone] [facility] Start: 12-22-2024 End: 12-22-2024 Patient encounter procedure 12/22/2024 9:15 AM EDT Appointment [facility] [address] [place] [phone] [facility] Start: 12-21-2024 End: 12-21-2024 Patient encounter procedure [facility] Start: 12-18-2024 End: 12-18-2024 Patient encounter procedure 12/18/2024 9:15 AM EDT Appointment [facility] On[facility] [address] [place] [phone] [facility] Start: 12-17-2024 End: 12-17-2024 Patient encounter procedure 12/17/2024 9:15 AM EDT Appointment [facility] [address] [place] [phone] [facility] Start: 12-16-2024 End: 12-16-2024 Patient encounter procedure 12/16/2024 9:15 AM EDT Appointment [facility] [address] [place] [phone] [facility] Start: 12-15-2024 End: 12-15-2024 Patient encounter procedure 12/15/2024 9:15 AM EDT Appointment [facility] [address] [place] [phone] [facility] - Radiation Oncology Start: 12-14-2024 End: 12-14-2024 Patient encounter procedure [facility] Start: 12-11-2024 End: 12-11-2024 Patient encounter procedure 12/11/2024 10:45 AM EDT Appointment [facility] - Radiation Oncology [address] [place] [phone] [facility] - Radiation Oncology Start: 12-10-2024 End: 12-10-2024 Patient encounter procedure 12/10/2024 9:15 AM EDT Office Visit Meera Albarado [facility] - Medical Oncology [address] [place] [phone] [place] [address] [place] [address] [address] [place] [address] [facility] [address] [facility] - Medical Oncology Start: 12-07-2024 End: 12-07-2024 Patient encounter procedure 12/07/2024 10:15 AM EDT Appointment [facility] - Radiation Oncology [address] [place] [phone] [facility] - Radiation Oncology Start: 11-27-2024 Urine culture [facility] Start: 11-27-2024 Bacteria identified in Urine by Culture [facility]rine [facility] Start: 11-24-2024 End: 11-24-2024 Patient encounter procedure 11/24/2024 1:00 PM EDT Appointment [facility] Radiation Oncology [address] [place] [phone] [facility] - Radiation Oncology Start: 11-13-2024 End: 11-13-2024 Patient encounter procedure [facility] - Radiation Oncology Start: 11-13-2024 End: 11-13-2024 Patient encounter procedure 11/13/2024 10:15 AM EDT Appointment [facility] - MRI Imaging [address] [facility] [address] Richie Sandoval MD [address] [place], [place] [phone] [facility] - MRI Imaging Start: 11-12-2024 End: 11-12-2025 MR Brain WO and W contrast IV MR brain with and without contrast Imaging STAT Glioblastoma ([facility]) Expected: 11/12/2024, Expires: 11/12/2025 [facility] Work Phone: Comment on above: Expected: 11/12/2024, Expires: Start: 11-12-2024 End: 11-12-2024 Patient encounter procedure 11/12/2024 11:00 AM EDT Office Visit Meera Albarado [facility] - Medical Oncology [address] [place] [phone] [place] [address] [place] [address] [address] [place] [address] Meera Albarado [facility] - Medical Oncology Start: 11-10-2024 End: 11-10-2024 ambulatory [facility] Start: 11-10-2024 End: 11-10-2024 Patient encounter procedure 11/10/2024 1:10 PM EDT Office Visit [facility] [address] [place] [address] Jair Espinal MD [address] [facility] [address] [place] [phone] [facility] Start: 10-17-2024 Bacteria identified in Urine by Culture [facility] Start: 10-17-2024 Urine [facility] Start: 10-02-2024 End: 09-28-2025 Void Trial [facility] Work Phone: Start: 09-30-2024 End: 09-30-2024 Patient encounter procedure 09/30/2024 8:40 AM EDT Office Visit [facility] [address] [place] [phone] Fred Gracia, KIRK [address] [place] [phone] [facility] Start: 09-18-2024 DIABETES SCREEN DIABETES SCREEN [facility] Start: 09-18-2024 Diabetes Screening Diabetes Screening [facility] Start: 09-07-2024 End: 09-07-2024 Patient encounter procedure 09/07/2024 8:00 AM EDT Office Visit [facility] [address] [facility] [address] [place] [address] Nasra Horta, MANAGER ENTERPRISE [address], [facility] [address] [place] [address] [facility] Start: 08-31-2024 End: 08-31-2024 Patient encounter procedure 08/31/2024 10:30 AM EDT [facility] [address] [place] [phone] Fred Gracia, KIRK [address] [place] [phone] [facility] Start: 08-22-2024 Urine culture [facility] Start: 08-22-2024 Bacteria identified in Urine by Culture Urine [facility] Start: 08-18-2024 End: 08-18-2024 Patient encounter procedure [facility] Comment on above: Morbid (severe) obesity due to excess ca lories (CMS/HCC) (Primary Dx); Generalized anxiety disorder with panic attacks (CMS/HCC); Major depressive disorder, recurrent, moderate (CMS/HCC) Start: 07-13-2024 End: 07-13-2024 Patient encounter procedure 07/13/2024 9:40 AM EST Office Visit [facility] [address] [facility] [address] [place] [address] Nasra Horta, KIRK [address], [facility] [address] [place] [phone] [facility] Start: 07-07-2024 End: 07-07-2024 Patient encounter procedure 07/07/2024 10:00 AM EST Office Visit [facility] [address] [place] [phone] Fred Gracia NP [address] [place] [phone] Generalized anxiety disorder with panic attacks (CMS/HCC) (Primary Dx); Multiple sclerosis (CMS/HCC); Major depressive disorder, recurrent, moderate (CMS/HCC); Morbid (severe) obesity due to excess calories (CMS/HCC); Body mass index (BMI) 45.0-49.9, adult (CMS/HCC) [facility] Comment on above: Generalized anxiety disorder with panic attacks (CMS/HCC) (Primary Dx); Multiple sclerosis (CMS/HCC); Major depressive disorder, recurrent, moderate (CMS/HCC); Morbid (severe) obesity due to excess calories (CMS/HCC); Body mass index (BMI) 45.0-49.9, adult (CMS/HCC) Start: 07-01-2024 End: 07-01-2024 Patient encounter procedure 07/01/2024 10:00 AM EST Office Visit [facility] [address] [place] [phone] Fred Gracia NP [address] [place] [phone] [facility] Start: 06-25-2024 End: 06-25-2024 Patient encounter procedure 06/25/2024 8:40 AM EST Office Visit [facility] [address] [place] [phone] Fred Gracia, MANAGER ENTERPRISE [address] [place] [address] [facility] Start: 06-17-2024 End: 06-17-2024 Patient encounter procedure 06/17/2024 9:30 AM EST Office Visit [facility] [address] [place] [phone] Sherrie Boone, KIRK [address] [place] [address] Arrived [facility] Comment on above: Arrived Start: 06-08-2024 End: 06-08-2024 Patient encounter procedure 06/08/2024 9:45 AM EST Office Visit [facility] [address] [place] [address] Yahaira Vazquez PA [address] [place] [address] [facility] Start: 05-18-2024 End: 07-17-2025 MG Breast - bilateral Screening Bilateral screening mammogram Imaging Routine Encounter for screening mammogram for malignant neoplasm of breast Expected: 05/18/2024 (Approximate), Expires: 07/17/2025 [facility] Work Phone: Comment on above: Expected: 05/18/2024 (Approximate), Expi res: 07/17/2025 Start: 05-18-2024 End: 05-18-2024 [facility] Comment on above: LORENZO (obstructive sleep [...] [facility] [address] [facility] [address] [place] [phone] Nasra Horta, MANAGER ENTERPRISE [address], [address] [phone] [facility] Start: 05-05-2024 End: 05-05-2024 Patient encounter procedure 05/05/2024 9:40 AM EST Office Visit [facility] [address] [place] [phone] Fred Gracia NP [address] [place] [phone] [facility] Start: 04-30-2024 Medicare Annual Wellness (AWV) Medicare Annual Wellness (AWV) [facility] Start: 04-29-2024 End: 04-29-2024 Patient encounter procedure 04/29/2024 9:40 AM EST Office Visit [facility] [address] [facility] [address] [place] [phone] Nasra Horta, MANAGER ENTERPRISE [address], [address] [phone] [facility] Start: 04-27-2024 End: 04-27-2024 Patient encounter procedure [facility] Start: 04-10-2024 End: 04-10-2024 ambulatory 04/10/2024 8:30 AM EST Treatment [facility] [address] [facility] [address] [place] [address] Inderjit Pelletier PTA [facility] Start: 04-07-2024 End: 04-07-2024 ambulatory 04/07/2024 9:00 AM EST Treatment [facility] [address] [facility] [address] [place] [address] Aria Kumar, PT [facility] Start: 04-02-2024 End: 04-02-2024 ambulatory 04/02/2024 8:30 AM EST Treatment [facility] [address] [facility] [address] [place] [address] Aria Kumar, PT [facility] Start: 03-17-2024 End: 03-17-2024 ambulatory 03/17/2024 9:00 AM EDT Treatment [facility] [address] [facility] [address] [place] [address] Aria Kumar, PT [facility] Start: 03-13-2024 End: 03-13-2024 ambulatory [facility] Comment on above: Arrived Start: 03-10-2024 End: 03-10-2024 ambulatory 03/10/2024 9:30 AM EDT Treatment [facility] [address] [facility] [address] [place] [address] Keli Major, WORKERS' COMPENSATION MEDIATOR [facility] Start: 03-06-2024 End: 03-06-2024 ambulatory 03/06/2024 8:30 AM EDT Treatment [facility] [address] [facility] [address] [place] [address] Inderjit Pelletier, WORKERS' COMPENSATION MEDIATOR [facility] Start: 03-05-2024 End: 03-05-2024 [...] [facility] [address] [place] [phone] Eliazar Brooks, DO [address] [place] [address] [facility] Start: 02-25-2024 End: 02-25-2024 Patient encounter procedure 02/25/2024 8:15 AM EDT Office Visit [facility] [address] [place] [phone] Eliazar Brooks, DO [address] [place] [address] [facility] Start: 02-10-2024 End: 02-10-2024 Patient encounter procedure [facility] Start: 02-03-2024 End: 02-03-2024 Patient encounter procedure [facility] Comment on above: Arrived Start: 01-31-2024 End: 01-29-2025 Urinalysis complete panel - Urine Urinalysis with reflex microscopic Lab Routine Pre-op testing Expected: 01/31/2024, Expires: 01/29/2025 [facility] Work Phone: Comment on above: Expected: 01/31/2024, Expires: Start: 01-30-2024 End: 01-30-2024 Patient encounter procedure [facility] Comment on above: Rotator cuff impingement syndrome of lef t shoulder (Primary Dx) Start: 01-23-2024 End: 01-23-2024 Patient encounter procedure 01/23/2024 12:00 PM EDT Procedure Visit [facility] [address] [address] [place] [phone] [facility] Start: 01-19-2024 Covid-19 Vaccine ( season) Covid-19 Vaccine ( season) [facility] Start: 01-19-2024 Influenza vaccination [facility] Start: 12-10-2023 End: 12-10-2023 Patient encounter procedure 12/10/2023 10:30 AM EDT Office Visit [address] [address] Jessica Clarke PA-C [address] [place] [address] follow up [facility] Comment on above: follow up Start: 11-27-2023 End: 02-26-2024 25-hydroxyvitamin D3 [Mass/volume] in Serum or Plasma VITAMIN D 25 HYDROXY Lab Routine Vitamin D deficiency Expected: 11/27/2023, Expires: 02/26/2024 [facility] Comment on above: Expected: 11/27/2023, Expires: Start: 11-27-2023 End: 02-26-2024 CBC W Auto Differential panel - Blood COMPLETE BLOOD COUNT AND DIFFERENTIAL Lab Routine Multiple sclerosis (HCC) Expected: 11/27/2023, Expires: 02/26/2024 [facility] Work Phone: Comment on above: Expected: 11/27/2023, Expires: Start: 11-27-2023 End: 02-26-2024 Comprehensive metabolic 2000 panel - Serum or Plasma COMPREHENSIVE METABOLIC PANEL Lab Routine Multiple sclerosis ([facility]) Expected: 11/27/2023, Expires: 02/26/2024 [facility] Comment on above: Expected: 11/27/2023, Expires: Start: 11-27-2023 End: 02-26-2024 IgG [Mass/volume] in Serum or Plasma IMMUNOGLOBULIN G Lab Routine Multiple sclerosis (HCC) Expected: 11/27/2023, Expires: 02/26/2024 [facility] Comment on above: Expected: 11/27/2023, Expires: Start: 11-27-2023 End: 02-26-2024 IgM [Mass/volume] in Serum or Plasma IMMUNOGLOBULIN M Lab Routine Multiple sclerosis ([facility]) Expected: 11/27/2023, Expires: 02/26/2024 [facility] Comment on above: Expected: 11/27/2023, Expires: Start: 11-27-2023 End: 11-27-2023 Patient encounter procedure 11/27/2023 12:00 PM EDT Appointment Radiology [address] [place] [address] Cervical Spine MRI Radiology Comment on above: Cervical Spine MRI Start: 11-09-2023 DIABETES SCREEN DIABETES SCREEN [facility] Start: 09-05-2023 End: 09-05-2023 Patient encounter procedure 09/05/2023 8:40 AM EDT Office Visit [facility] [address] [place] [address] Fred Gracia NP [address] [place] [phone] [facility] Start: 07-25-2023 End: 06-26-2024 Pulmonary function testing Pulmonary function testing Imaging Routine COPD with exacerbation (CMS/HCC) Expected: 07/25/2023, Expires: 06/26/2024 [facility] Work Phone: Comment on above: Expected: 07/25/2023, Expires: Start: 06-26-2023 End: 06-26-2024 XR Chest 2 Views XR chest 2 views Imaging Routine COPD with exacerbation (CMS/HCC) Expected: 06/26/2023, Expires: 06/26/2024 [facility] Comment on above: Expected: 06/26/2023, Expires: Start: 06-26-2023 End: 06-26-2023 Patient encounter procedure 06/26/2023 11:30 AM EST Office Visit [facility] [address] [place] [phone] Shaikh Lunsford MD [address] [place] [address] Arrived [facility] Comment on above: Arrived Start: 05-20-2023 Behavioral Health Screening Behavioral Health Screening [facility] Start: 05-20-2023 Depression Assessment Depression Assessment [facility] Start: 01-18-2023 Covid-19 Vaccine ( season) Covid-19 Vaccine ( season) [facility] Start: 01-18-2023 Influenza vaccination [facility] Start: 09-15-2022 Adult depression screening assessment DEPRESSION SCREENING [facility] Start: 08-30-2022 End: 10-30-2022 CBC W Auto Differential panel - Blood CBC + DIFF Lab Routine Multiple sclerosis, relapsing-remitting (HCC) Expected: 08/30/2022, Expires: 10/30/2022 [facility] Work Phone: Comment on above: Expected: 08/30/2022, Expires: Start: 08-30-2022 End: 10-30-2022 Comprehensive metabolic 2000 panel - Serum or Plasma COMP METABOLIC PANEL Lab Routine Multiple sclerosis, relapsing-remitting (HCC) Expected: 08/30/2022, Expires: 10/30/2022 [facility] Work Phone: Comment on above: Expected: 08/30/2022, Expires: Start: 08-30-2022 End: 10-30-2022 IgG [Mass/volume] in Serum or Plasma IGG Lab Routine Multiple sclerosis, relapsing-remitting (HCC) Expected: 08/30/2022, Expires: 10/30/2022 [facility] Work Phone: Comment on above: Expected: 08/30/2022, Expires: Start: 08-30-2022 End: 10-30-2022 IgM [Mass/volume] in Serum or Plasma IGM Lab Routine Multiple sclerosis, relapsing-remitting (HCC) Expected: 08/30/2022, Expires: 10/30/2022 [facility] Work Phone: Comment on above: Expected: 08/30/2022, Expires: Start: 05-20-2022 DEPRESSION ASSESSMENT DEPRESSION ASSESSMENT [facility] Start: 03-22-2022 End: 05-22-2022 CBC W Auto Differential panel - Blood CBC + DIFF Lab Routine Multiple sclerosis, relapsing-remitting (HCC) Expected: 03/22/2022, Expires: 05/22/2022 [facility] Work Phone: Comment on above: Expected: 03/22/2022, Expires: 3 Start: 03-22-2022 End: 05-22-2022 CD19 ABSOLUTE COUNT CD19 ABSOLUTE COUNT Lab Routine Multiple sclerosis (HCC) Expected: 03/22/2022, Expires: 05/22/2022 [facility] Work Phone: Comment on above: Expected: 03/22/2022, Expires: 3 Start: 03-22-2022 End: 05-22-2022 Comprehensive metabolic 2000 panel - Serum or Plasma COMP METABOLIC PANEL Lab Routine Multiple sclerosis, relapsing-remitting ([facility]) Expected: 03/22/2022, Expires: 05/22/2022 [facility] Work Phone: Comment on above: Expected: 03/22/2022, Expires: 3 Start: 03-22-2022 End: 05-22-2022 IgG [Mass/volume] in Serum or Plasma IGG Lab Routine Multiple sclerosis, relapsing-remitting ([facility]) Expected: 03/22/2022, Expires: 05/22/2022 [facility] Work Phone: Comment on above: Expected: 03/22/2022, Expires: 3 Start: 03-22-2022 End: 05-22-2022 IgM [Mass/volume] in Serum or Plasma IGM Lab Routine Multiple sclerosis, relapsing-remitting ([facility]) Expected: 03/22/2022, Expires: 05/22/2022 [facility] Work Phone: Comment on above: Expected: 03/22/2022, Expires: 3 Start: 01-18-2022 Influenza vaccination [facility] Start: 11-14-2021 End: 01-14-2022 JCV ANTIBODY & INDEX WITH REFLEX [facility] Work Phone: Comment on above: Expected: 11/14/2021, Expires: 2 Start: 09-18-2021 End: 11-18-2021 CD19 ABSOLUTE COUNT [facility] Work Phone: Comment on above: Expected: 09/18/2021, Expires: 2 Start: 09-16-2021 COVID-19 VACCINE (3 - Booster for Yeni series) COVID-19 VACCINE (3 - Booster for Yeni series) [facility] Start: 09-15-2021 End: 11-15-2021 CBC W Auto Differential panel - Blood CBC + DIFF Lab Routine Multiple sclerosis, relapsing-remitting (HCC) Expected: 09/15/2021, Expires: 11/15/2021 [facility] Work Phone: Comment on above: Expected: 09/15/2021, Expires: 2 Start: 09-15-2021 End: 11-15-2021 Comprehensive metabolic 2000 panel - Serum or Plasma COMP METABOLIC PANEL Lab Routine Multiple sclerosis, relapsing-remitting (HCC) Expected: 09/15/2021, Expires: 11/15/2021 [facility] Work Phone: Comment on above: Expected: 09/15/2021, Expires: 2 Start: 09-15-2021 End: 11-15-2021 IMMUNOGLOBULINS KESHAWN IMMUNOGLOBULINS KESHAWN Lab Routine Multiple sclerosis, relapsing-remitting (HCC) Expected: 09/15/2021, Expires: 11/15/2021 [facility] Work Phone: Comment on above: Expected: 09/15/2021, Expires: 2 Start: 09-15-2021 End: 11-15-2021 LIPID PANEL BASIC LIPID PANEL BASIC Lab Routine Multiple sclerosis, relapsing-remitting (HCC) Expected: 09/15/2021, Expires: 11/15/2021 [facility] Work Phone: Comment on above: Expected: 09/15/2021, Expires: 2 Start: 07-13-2021 COVID-19 VACCINE (3 - Booster for Yeni series) COVID-19 VACCINE (3 - Booster for Yeni series) [facility] Start: 05-20-2021 DEPRESSION ASSESSMENT DEPRESSION ASSESSMENT [facility] Start: 2018 Administration of varicella zoster vaccine Zoster (Shingles) Vaccine (1 of 2) [facility] Start: 2018 Influenza vaccination LUNG CANCER SCREENING [facility] Start: 2018 Pneumococcal Vaccine: 50+ (2 of 2 - PCV) Pneumococcal Vaccine: 50+ (2 of 2 - PCV) [facility] Start: 2018 Screening for malignant neoplasm of lung Lung Cancer Screening [facility] Start: 2018 SHINGRIX VACCINE (1 of 2) SHINGRIX VACCINE (1 of 2) [facility] Start: 09-17-2013 Screening for malignant neoplasm of breast Mammogram [facility] Start: 2013 COLOGUARD (FIT-DNA) COLOGUARD (FIT-DNA) [facility] Start: 2013 Colonoscopy COLONOSCOPY [facility] Start: 2013 COLORECTAL CANCER SCREENING COLORECTAL CANCER SCREENING [facility] Start: [address] COLONOGRAPHY [facility] Start: 2013 FECAL OCCULT BLOOD FECAL OCCULT BLOOD [facility] Start: 2013 Screening for malignant neoplasm of colon [facility] Start: 2013 SIGMOIDOSCOPY SIGMOIDOSCOPY [facility] Start: 2008 Mammography [facility] Start: 2008 Screening for malignant neoplasm of breast Mammogram Screening [facility] Start: 1998 HPV TESTING HPV TESTING [facility] Start: 1998 Screening for malignant neoplasm of cervix [facility] Start: 1989 PAP TESTING PAP TESTING [facility] Start: 1989 Screening for malignant neoplasm of cervix [facility] Start: 1987 Administration of varicella zoster vaccine Zoster (Shingles) Vaccine (1 of 2) [facility] Start: 1987 Hepatitis B Vaccine (1 of 3 - 19+ 3-dose series) Hepatitis B Vaccine (1 of 3 - 19+ 3-dose series) [facility] Start: 1986 Adult BMI Follow Up Plan Adult BMI Follow Up Plan [facility] Start: 1986 Anxiety Screening Anxiety Screening [facility] Start: 1986 Depression Screening Depression Screening [facility] Start: 1986 HIV SCREENING HIV SCREENING [facility] Start: 1986 HIV screening HIV Screening [facility] Start: 1980 Depression Screening Depression Screening [facility] Start: 1968 HEPATITIS B (1 of 3 - 3-dose series) HEPATITIS B (1 of 3 - 3-dose series) [facility] Start: 1968 Hepatitis B Vaccine (1 of 3 - 3-dose series) Hepatitis B Vaccine (1 of 3 - 3-dose series) [facility] Start: 1968 Screening for malignant neoplasm of colon [facility] Start: 1968 Tobacco Counseling Tobacco Counseling [facility] Basic metabolic 2000 panel - Serum or Plasma [facility] BLOOD CULTURE 1 BLOOD CULTURE 1 Lab Routine 08/23/2024 5:46 AM EDT [facility] BLOOD CULTURE 1 BLOOD CULTURE 1 Lab Routine 11/27/2024 8:15 PM EDT [facility] BLOOD CULTURE 2 BLOOD CULTURE 2 Lab Routine 08/23/2024 5:52 AM EDT [facility] CBC W Auto Different ial panel - Blood [facility] End: 11-19-2033 CBC W Auto Differential panel - Blood CBC auto differential Lab Routine GBM (glioblastoma multiforme) ([facility]) weekly for 7 Occurrences starting 11/19/2024 until 11/19/2033 [facility] Work Phone: Comment on above: weekly for 7 Occurrences starting 2024 until 11/19/2033 End: 11-19-2025 Comprehensive metabolic 2000 panel - Serum or Plasma Comprehensive metabolic panel Lab Routine GBM (glioblastoma multiforme) ([facility]) weekly for 7 Occurrences starting 11/19/2024 until 11/19/2025 [facility] Comment on above: weekly for 7 Occurrences starting 2024 until 11/19/2025 End: 09-05-2024 EMG(NEURO/NI) EMG(NEURO/NI) EMG Routine Left arm weakness 1 Occurrences starting 09/06/2023 until 09/05/2024 [facility] Work Phone: Comment on above: 1 Occurrences starting 09/06/2023 until 09/05/2024 IMMUNOGLOBULINS KESHAWN IMMUNOGLOBUL INS KESHAWN Lab Routine Multiple sclerosis, relapsing-remitting (HCC) 09/18/2021 8:36 AM EDT [facility] Work Phone: Ionized calcium [facility] Work Phone: Magnesium [Mass/volu me] in Serum or Plasma [facility] End: 11-16-2023 ALIYA SCREENING ALIYA SCREENING Radiology Routine Encounter for screening mammogram for breast cancer 1 Occurrences starting 10/17/2022 until 11/16/2023 [facility] Work Phone: Comment on above: 1 Occurrences starting 10/17/2022 until 11/16/2023 End: 08-14-2024 MR Brain WO and W contrast IV MRI BRAIN WO/W IVCON Radiology Routine Multiple sclerosis (HCC) 1 Occurrences starting 07/16/2023 until 08/14/2024 [facility] Work Phone: Comment on above: 1 Occurrences starting 07/16/2023 until 08/14/2024 End: 10-05-2024 MR Cervical spine WO contrast MRI CERVICAL SPINE WO IVCON Radiology Routine Left arm weakness 1 Occurrences starting 09/06/2023 until 10/05/2024 [facility] Work Phone: Comment on above: 1 Occurrences starting 09/06/2023 until 10/05/2024 End: 10-15-2022 Mri brain brain stem w/o w/contrast material MRI BRAIN WO/W IVCON Radiology Routine Multiple sclerosis, relapsing-remitting (HCC) 1 Occurrences starting 09/15/2021 until 10/15/2022 [facility] Work Phone: Comment on above: 1 Occurrences starting 09/15/2021 until 10/15/2022 End: 12-14-2022 Mri brain brain stem w/o w/contrast material MRI BRAIN WO/W IVCON Radiology Routine Multiple sclerosis, relapsing-remitting (HCC) 1 Occurrences starting 11/14/2021 until 12/14/2022 [facility] Work Phone: Comment on above: 1 Occurrences starting 11/14/2021 until 12/14/2022 End: 09-29-2023 Mri brain brain stem w/o w/contrast material MRI BRAIN WO/W IVCON Radiology Routine Multiple sclerosis, relapsing-remitting (HCC) 1 Occurrences starting 08/30/2022 until 09/29/2023 [facility] Work Phone: Comment on above: 1 Occurrences starting 08/30/2022 until 09/29/2023 End: 09-29-2023 Mri spinal canal cervical w/o & w/contr matrl MRI CERVICAL SPINE WO/W IVCON Radiology Routine Multiple sclerosis, relapsing-remitting (HCC) 1 Occurrences starting 08/30/2022 until 09/29/2023 [facility] Work Phone: Comment on above: 1 Occurrences starting 08/30/2022 until 09/29/2023 OT PLAN OF CARE CERTIFICATION OT PLAN OF CARE CERTIFICATION Procedures Routine Multiple sclerosis, relapsing-remitting (HCC) Ordered: 01/16/2022 [facility] Work Phone: Comment on above: Ordered: 01/16/2022 Oxygen Therapy - Maintain SpO2: 90%; *LUMP RECEIVER Guidelines for O2: Yes; Document: \[email or web address]\epi c\EPIC_Reference\Orders\ Respiratory Care Guidelines\CPG Oxygen 2022.pdf [employer] Work Phone: Patient Education Hemorrhoids (D C) Diverticulosis (DC) Colon Polypectomy (DC) [facility] Work Phone: Phosphate [Mass/volu me] in Serum or Plasma [employer] Platelets [#/volume] in Blood [employer] Work Phone: Renal function 2000 panel - Serum or Plasma [facility] End: 12-15-2022 Screening mammography bi 2-view breast inc cad ALIYA SCREENING Radiology Routine Encounter for screening mammogram for breast cancer 1 Occurrences starting 11/15/2021 until 12/15/2022 [facility] Work Phone: Comment on above: 1 Occurrences starting 11/15/2021 until 12/15/2022 Surgical Pathology [facility] Work Phone: [place] [facility] [place] [facility] [place] Routine 08/22/2024 10:45 PM EDT [facility] [place] [place] [facility] [place] [place] [facility] [place] Routine 10/17/2024 9:45 AM EDT [facility] [email or web address] US Kidney - bilateral [facility]: 10-05-2024 XR CERV OTHER 4V AP/LAT/FLX/EXT XR CERV OTHER 4V AP/LAT/FLX/EXT Radiology Routine Left arm weakness 1 Occurrences starting 09/06/2023 until 10/05/2024 [facility] Work Phone: Comment on above: 1 Occurrences starting 09/06/2023 until 10/05/2024 [facility] Immunizations Immunization Date Immunization Notes Care Provider [facility] 03-05-2024 influenza, injectabl e, madin diane canine kidney, preservative free Julio Fernandez MD Work Phone: [facility] 03-05-2024 Influenza, injectabl e, Madin Diane Canine Kidney, preservative free, quadrivalent Fred Gracia MANAGER ENTERPRISE Work Phone: [facility] 03-05-2024 unknown vaccine or immune globulin Julio Fernandez MD Work Phone: [facility] 03-05-2024 influenza virus vaccine, unspecified formulation Adonay Castillo STUCCO APPLICATOR-GEOTECHNICIAL PROPERTIES TECHNICIAN Work Phone: [facility] 05-02-2023 influenza, intraderm al, quadrivalent, preservative free, injectable Shaikh Jonn BENITEZ Work Phone: [facility] 05-02-2023 influenza virus vaccine, unspecified formulation Sarthak Escobar MD, PhD Work Phone: [facility] 04-30-2023 influenza, seasonal, injectable Shaikh Jonn BENITEZ Work Phone: [facility] 05-29-2022 unknown vaccine or immune globulin Julio Fernandez MD Work Phone: [facility] 03-07-2022 influenza, high dose seasonal, preservative-free Shaikh Jonn BENITEZ Work Phone: [facility] 03-07-2022 influenza virus vaccine, unspecified formulation Jessica Young PA-C Work Phone: [facility] 05-18-2021 COVID-19 mRNA-1273 (Moderna) Services [facility] Work Phone: [facility] 05-18-2021 unknown vaccine or immune globulin Julio Fernandez MD Work Phone: [facility] 07-28-2020 unknown vaccine or immune globulin Julio Fernandez MD Work Phone: [facility] 07-28-2020 Ilia and Ilia COVID 19 Vaccine Jaleesa Lara [facility] Comment on above: Note: Patient tolera jonah well. No signs or symptoms of adverse reactions. Patient waited a minimum of 15 minutes. 04-08-2020 influenza, injectabl e, quadrivalent, preservative free Jessica Young PA-C Work Phone: [facility] 03-20-2019 influenza, injectabl e, quadrivalent, preservative free Jessica Young PA-C Work Phone: [facility] 06-05-2018 influenza, injectabl e, quadrivalent, preservative free Jessica Young PA-C Work Phone: [facility] 02-27-2017 influenza, injectabl e, quadrivalent, preservative free Jessica Young PA-C Work Phone: [facility] 10-02-2016 pneumococcal polysaccharide vaccine, 23 valent Jessica Young PA-C Work Phone: [facility] 10-02-2016 tetanus toxoid, redu maury diphtheria toxoid, and acellular pertussis vaccine, adsorbed Jessica Young PA-C Work Phone: [facility] 10-02-2016 unknown vaccine or immune globulin Julio Fernandez MD Work Phone: [facility] 04-03-2016 influenza, injectabl e, quadrivalent, preservative free Jessica Young PA-C Work Phone: [facility] 03-19-2015 influenza, high dose seasonal, preservative-free Jessica Young PA-C Work Phone: [facility] 03-19-2015 influenza, injectabl e, quadrivalent, preservative free Eliazar Brooks DO Work Phone: [facility] 04-27-2014 influenza, high dose seasonal, preservative-free Jessica Young PA-C Work Phone: [facility] 04-27-2014 influenza, injectabl e, quadrivalent, preservative free Eliazar Brooks DO Work Phone: [facility] Payers Date Payer Category Payer Medicare [id number] 2024 Self-pay [id number] 2024 Medicare [id number] 2023 Medicare (Managed Care) 1.2. [id number] 2023 Medicare [id number]. [id number]. [id number] 2022 Medicare [id number] 2020 Medicaid [facility] MEDICAID FORMERLY [facility] MEDICAID [id number] 2020-Present [phone] [address] [place] [address] Medicaid [id number]. [id number] 2020 Medicaid [id number]. 1.13.159.2. [id number] 1968 Unknown [id number] 2.16.840.1.623424.3.579.2. 593 1968 Unknown [id number] 2.16.840.1.003479.3.579.2. 593 1968 Unknown [id number] 2.16.840.1.742896.3.579.2. 593 1968 Unknown [id number] 2.16.840.1.168432.3.579.2. 593 1968 Unknown [id number] 2.16.840.1.344216.3.579.2. 593 1968 Unknown [id number] 2.16.840.1.397326.3.579.2. 727 1968 Unknown [id number] 2.16.840.1.772623.3.579.2. 1258 1968 Unknown [id number] 2.16.840.1.186682.3.579.2. 1258 1968 Unknown [id number] 2.16.840.1.236302.3.579.2. 1258 1968 Unknown [id number] 2.16.840.1.543994.3.579.2. 1258 1968 Unknown [id number] 2.16.840.1.418936.3.579.2. 1258 1968 Unknown [id number] 2.16.840.1.896716.3.579.2. 1259 1968 Unknown [id number] 2.16.840.1.844105.3.579.2. 125 1968 Unknown [id number] 2.16.840.1.824402.3.579.2. 125 1968 Unknown [id number] 2.16.840.1.298731.3.579.2. 1258 1968 Unknown [id number] 2.16.840.1.450859.3.579.2. 1258 1968 Unknown [id number] 2.16.840.1.636595.3.579.2. 125 1968 Unknown [id number] 2.16.840.1.313199.3.579.2. 1258 1968 Unknown [id number] 2.16.840.1.478415.3.579.2. 1258 1968 Unknown [id number] 2.16.840.1.407504.3.579.2. 1258 1968 Unknown [id number] 2.16.840.1.788734.3.579.2. 1258 1968 Unknown [id number] 2.16.840.1.203078.3.579.2. 1258 1968 Unknown [id number] 2.16.840.1.485961.3.579.2. 1258 1968 Unknown [id number] 2.16.840.1.840131.3.579.2. 1258 1968 Unknown [id number] 2.16.840.1.338396.3.579.2. 1258 1968 Unknown [id number] 2.16.840.1.180434.3.579.2. 1258 1968 Unknown [id number] 2.16.840.1.716954.3.579.2. 1258 1968 Unknown [id number] 2.16.840.1.689385.3.579.2. 1258 1968 Unknown [id number] 2.16.840.1.140153.3.579.2. 1258 1968 Unknown [id number] 2.16.840.1.129742.3.579.2. 1258 1968 Unknown [id number] 2.16.840.1.572616.3.579.2. 1258 1968 Unknown [id number] 2.16.840.1.886534.3.579.2. 1285 1968 Unknown [id number] 2.16.840.1.439515.3.579.2. 1285 1968 Unknown [id number] 2.16.840.1.110676.3.579.2. 1286 1968 Unknown [id number] 2.16.840.1.111385.3.579.2. 732 1968 Unknown [id number] 2.16.840.1.528522.3.579.2. 7 1968 Unknown [id number] 2.16.840.1.992655.3.579.2. 1968 Unknown [id number] 2.16.840.1.428542.3.579.2. 1968 Unknown [id number] 2.16.840.1.619273.3.579.2. 1968 Unknown [id number] 2.16.840.1.694984.3.579.2. 1968 Unknown [id number] 2.16.840.1.784799.3.579.2. 1968 Unknown [id number] 2.16.840.1.912838.3.579.2. 1285 1968 Unknown [id number] 2.16.840.1.960677.3.579.2. 1285 1968 Unknown [id number] 2.16.840.1.040814.3.579.2. 1285 1968 Unknown [id number] 2.16.840.1.582390.3.579.2. 1285 1968 Unknown [id number] 2.16.840.1.023496.3.579.2. 1285 1968 Unknown [id number] 2.16.840.1.793088.3.579.2. 1285 1968 Unknown [id number] 2.16.840.1.550757.3.579.2. 1285 1968 Unknown [id number] 2.16.840.1.538188.3.579.2. 1285 1968 Unknown [id number] 2.16.840.1.724178.3.579.2. 1285 1968 Unknown [id number] 2.16.840.1.913912.3.579.2. 1285 1968 Unknown [id number] 2.16.840.1.468515.3.579.2. 1285 1968 Unknown [id number] 2.16.840.1.354557.3.579.2. 1285 1968 Unknown [id number] 2.16.840.1.885269.3.579.2. 1285 1968 Unknown [id number] 2.16.840.1.614121.3.579.2. 1285 1968 Unknown [id number] 2.16.840.1.985289.3.579.2. 1285 1968 Unknown [id number] 2.16.840.1.149762.3.579.2. 1285 1968 Unknown [id number] 2.16.840.1.139811.3.579.2. 1285 1968 Unknown [id number] 2.16.840.1.686937.3.579.2. 1285 1968 Unknown [id number] 2.16.840.1.808122.3.579.2. 1285 1968 Unknown [id number] 2.16.840.1.043935.3.579.2. 1285 1968 Unknown [id number] 2.16.840.1.079411.3.579.2. 1285 1968 Unknown [id number] 2.16.840.1.182337.3.579.2. 1285 1968 Unknown [id number] 2.16.840.1.130046.3.579.2. 1285 1968 Unknown [id number] 2.16.840.1.211703.3.579.2. 1285 1968 Unknown [id number] 2.16.840.1.841566.3.579.2. 1285 1968 Unknown [id number] 2.16.840.1.747698.3.579.2. 1285 1968 Unknown [id number] 2.16.840.1.049170.3.579.2. 1285 1968 Unknown [id number] 2.16.840.1.453109.3.579.2. 1285 1968 Unknown [id number] 2.16.840.1.221042.3.579.2. 1285 1968 Unknown [id number] 2.16.840.1.854251.3.579.2. 1285 1968 Unknown [id number] 2.16.840.1.446169.3.579.2. 1285 1968 Unknown [id number] 2.16.840.1.908034.3.579.2. 1285 1968 Unknown [id number] 2.16.840.1.345159.3.579.2. 1285 1968 Unknown [id number] 2.16.840.1.297551.3.579.2. 1285 1968 Unknown [id number] 2.16.840.1.454397.3.579.2. 1285 1968 Unknown [id number] 2.16.840.1.430606.3.579.2. 1285 1968 Unknown [id number] 2.16.840.1.142184.3.579.2. 1285 1968 Unknown [id number] 2.16.840.1.584249.3.579.2. 1285 1968 Unknown [id number] 2.16.840.1.793123.3.579.2. 1285 1968 Unknown [id number] 2.16.840.1.054224.3.579.2. 1286 1968 Unknown [id number] 2.16.840.1.657438.3.579.2. 1285 1968 Unknown [id number] 2.16.840.1.311305.3.579.2. 128 1968 Unknown [id number] 2.16.840.1.894533.3.579.2. 1285 1968 Unknown [id number] 2.16.840.1.584355.3.579.2. 128 1968 Unknown [id number] 2.840.1.467798.3.579.2. 1285 1968 Unknown [id number] 2.16840.1.970225.3.579.2. 1285 1968 Unknown [id number] 2.0.1.451201.3.579.2. 1285 1968 Unknown [id number] 2.840.1.624524.3.579.2. 1285 1959 Private Health Insurance [id number] 1959 Unknown [id number] Medicare [id number] Self-pay [id number] 2.0.1.618373.3.140.1. 92815.5.4 Unknown [id number] Unknown [id number] 2.840.1.329687.3.579.2. 531 Unknown [id number] 2.840.1.169808.3.579.2. 531 Unknown [id number] 2.0.1.946523.3.579.2. 531 Social History Date Type Detail Facility Tobacco smoking status Unknown if ever sm oked [facility] Work Phone: Start: 1970 Sex Assigned At Female F [facility] Start: 09-05-2021 End: 11-19-2024 Tobacco smoking status NHIS Ex-smoker (finding) [facility] Start: 12-13-1996 End: 12-13-2016 History of tobacco use Current smoker [facility] Start: 12-13-1996 End: 12-13-2016 History of tobacco use Cigarette Smoker [facility] Start: 12-06-2017 End: 12-24-2024 Cigarettes smoked current (pack per day) - Reported 1 [facility] Start: 12-06-2017 End: 08-28-2024 Tobacco use and exposure Smokeless tobacco non-user [facility] Start: 11-01-2020 End: 07-10-2023 Alcohol intake Current drinker of alcohol (finding) [facility] Start: 08-02-2020 History SDOH Alcohol Frequency 2 [facility] Start: 08-02-2020 History SDOH Alcohol Std Drinks 3 [facility] Start: 08-08-2012 History SDOH Alcohol Comment rare [facility] Start: 08-02-2020 History SDOH Social Connections Get Together 1 [facility] Start: 08-02-2020 History SDOH Physica l Activity DPW 0 [facility] Start: 08-02-2020 History SDOH Stress 5 [facility] Start: 08-02-2020 History SDOH Financial 4 [facility] Start: 08-02-2020 Education 8 [facility] Start: 08-08-2012 End: 03-22-2022 Tobacco Comment plans to try to quit at some point but not ready. [facility] Start: 09-08-2021 End: 03-22-2022 Exposure to SARS-CoV-2 (event) Not sure [facility] Start: 08-02-2020 End: 12-24-2024 Sex Assigned At [facility] Do you belong to any clubs or organizations such as alevism groups, unions, fraternal or athletic groups, or school groups? No [facility] Are you now , , , , never or living with a partner? [facility] How often to you hav e a drink containing alcohol? Monthly or less [facility] How many standard dr inks containing alcohol do you have on a typical day? 5 or 6 [facility] How often do you hav e 6 or more drinks on 1 occasion? Less than monthly [facility] How hard is it for y ou to pay for the very basics like food, housing, medical care, and heating Not very hard [facility] Start: 06-04-2023 Adult Depression Screening Assessment 5 [facility] Do you feel stress - tense, restless, nervous, or anxious, or unable to sleep at night because your mind is troubled all the time - these days [OSQ] Very much [facility] (I/We) worried wheth er (my/our) food would run out before (I/we) got money to buy more. Sometimes true [facility] Start: 08-02-2020 Gender identity Identifies as female gender (finding) [facility] Start: 08-02-2020 Sexual orientation Heterosexual (fin ever) [facility] Start: 06-05-2023 End: 08-31-2024 Alcohol intake Ex-drinker (finding) [facility] How many standard dr inks containing alcohol do you have on a typical day? 3 or 4 [facility] How hard is it for y ou to pay for the very basics like food, housing, medical care, and heating Very hard [facility] Do you feel stress - [...] use Passive smoker [facility] Tobacco [facility] Comment on above: States smokes 1 [facility]PD [facility] Start: 07-05-2015 End: 08-24-2024 Sex Female (finding) [facility] Start: 08-28-2024 Tobacco smoking stat NHIS Occasional tobacco smoker [facility] Start: 09-16-2024 End: 12-25-2024 Alcoholic beverage intake Lifetime non-drinker (finding) [employer] Start: 1970 Sex assigned at Not on file P [facility] Medical Equipment Procedure Code Equipment Code Equipment Origin al Text Equipment Identifier Dates SHOULDER ARTHROS COPY W/ POSSIBLE REPAIR Eliazar Brooks DO 02/10/24 Non Biological Shoulder L [id number] [facility] Start: 02-10-2024 [id number] Start: 09-23-2024 [id number] Start: 09-23-2024 [id number] Start: 09-23-2024 [id number] Start: 09-23-2024 Goals Date Patient Goal Desired [...] System Mental Status Date Assessment Result Facility [facility] Clinical Notes 08-14-2021 to 01-05-2025 [facility]05/[facility] 4:08 PM EDTTelephone Encounter - [facility] - 01/05/2025 4:08 PM Waldo Chowdhury RN - 12/25/2024 10:21 AM EDTPatient Instructions Note Date & Type Note Facility 01-05-2025 Miscellaneous Notes Pharmacy PA team received PA request for TEMOZOLOMIDE. No prior authorization is required through patient's MEDICARE PART B pharmacy benefit. Test Claim Results Medication name, strength & form: TEMOZOLOMIDE 180MG CAPSULE Qty/Day Supply: 30 Days Result: No Prior Authorization required at this time Required to fill with Specialty Pharmacy: YES Eligible to fill at [facility] Specialty Pharmacy: NO Preferred Specialty Pharmacy: [id number] Estimated Co-pay at [facility] Specialty Pharmacy: Unable to determine cost due to specialty pharmacy requirement Medication Assistance: No copay assistance needed at this time. Was the patient contacted by PA team: Yes but was unable to leave a message. VM is full. documented in this encounter [facility] 01-05-2025 Telephone encounter Note Pharmacy PA team received PA request for TEMOZOLOMIDE. No prior authorization is required through patient's MEDICARE PART B pharmacy benefit. Test Claim Results Medication name, strength & form: TEMOZOLOMIDE 180MG CAPSULE Qty/Day Supply: Days Result: No Prior Authorization required at this time Required to fill with Specialty Pharmacy: YES Eligible to fill at [facility] Specialty Pharmacy: NO Preferred Specialty Pharmacy: [id number] Estimated Co-pay at [facility] Specialty Pharmacy: Unable to determine cost due to specialty pharmacy requirement Medication Assistance: No copay assistance needed at this time. Was the patient contacted by PA team: Yes but was unable to leave a message. VM is full. [facility] 12-25-2024 History of Presen t illness Narrative The patient is here for follow up of glioblastoma and current radiaition treatment Dr. Mendoza recommends: Hold temodar during radiation. MRI w/wo in early 02/2025. If scan stable, plan to start adjuvant temodar (5 days/month). F/u in mid 02/2025 Calendar, orders and AVS given to patient documented in this encounter [facility] 12-25-2024 History of Presen t illness Narrative Images from the original note were not included. [facility] 12/25/24 Anupama Vasquez is a 54 y.o. year old female seen today in the oncology clinic. Chief Complaint Patient presents with Follow-up History of Present Illness: Mrs. 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 Negative for MGMT promoter methylation. RADIATION TREATMENT FROM 12/06/24 Interval history: Most recently in early November 2024, the patient was hospitalized in [place] ICU for catheter-related sepsis. She was started on radiation treatment 2 weeks ago, already chcf done with her radiation. Overall she is doing much better, able to walk with some assistance. Still relies on wheelchair to get around. She told me she is able to see better with much less double vision,. She has no difficulty with her speech but has difficulty to use her phone. She has a son and a daughter. She is here in clinic by herself. Past Medical History: Diagnosis Date Anemia Chronic kidney disease Depression Hypertension MS (multiple sclerosis) ([facility]) 2012 Stroke ([facility]) Past Surgical History: Procedure Laterality Date CARPAL TUNNEL RELEASE Left SHOULDER ARTHROSCOPY W/ ROTATOR CUFF REPAIR Left SYNAPTIVE CRANIOTOMY EXCISION TUMOR Right 09/23/2024 Performed by Jair Espinal MD at [facility] Family History Problem Relation Age of [...] Strain: High Risk (06/04/2023) Received from [facility] Overall Financial Resource Strain (CARDIA) Difficulty of Paying Living Expenses: Very hard Food Insecurity: No Food Insecurity (12/24/2024) Hunger Screening Food Insecurity - Worry: Never True Food Insecurity - Inability: Never True Transportation Needs: No Transportation Needs (08/28/2024) PRAPARE - Transportation Lack of Transportation (Medical): No Lack of Transportation (Non-Medical): No Physical Activity: Sufficiently Active (06/04/2023) Received from [facility] Exercise Vital Sign Days of Exercise per Week: 4 days Minutes of Exercise per Session: 40 min Stress: No Stress Concern Present (06/04/2023) Received from [facility] - Occupational Stress Questionnaire Feeling of Stress : Only a little Social Connections: Moderately Integrated (06/04/2023) Received from [facility] Social Connection and Isolation Panel [NHANES] Frequency of Communication with Friends and Family: Twice a week Frequency of Social Gatherings with Friends and Family: Once a week Attends Zoroastrian Services: 1 to 4 times per year [...] Known Allergies Medication List Accurate as of December 25, 2024 12:23 PM. If you have any questions, ask your nurse or doctor. Medications Continued This Visit acetaminophen 325 mg tablet Refills: 0 Dose: 650 mg Commonly known as: TYLENOL bumetanide 2 mg tablet Refills: 0 Commonly known as: BUMEX busPIRone 7.5 mg tablet Refills: 0 Dose: 7.5 mg Commonly known as: BUSPAR dexAMETHasone 4 mg tablet Refills: 0 Commonly known as: DECADRON levETIRAcetam 500 mg tablet Refills: 0 Dose: 500 mg Signed by: Jesi Soniipot, [employer] APPLICATOR-GEOTECHNICIAL PROPERTIES TECHNICIAN 500 mg, oral, 2 times daily Commonly known as: KEPPRA levoFLOXacin 500 mg tablet Refills: 0 Dose: 500 mg Commonly known as: LEVAQUIN metoprolol tartrate 25 mg tablet Refills: 0 Dose: 25 mg Signed by: Jesi Phlipot, STUCCO APPLICATOR-GEOTECHNICIAL PROPERTIES TECHNICIAN 25 mg, oral, 2 times daily Commonly known as: LOPRESSOR mirtazapine 15 mg disintegrating tablet Refills: 0 Dose: 15 mg Commonly known as: REMERON CANDI-TAB nystatin powder Refills: 0 Commonly known as: MYCOSTATIN ondansetron 8 mg tablet Quantity: 30 tablet Refills: 2 Dose: 8 mg Signed by: Guillermo Mendoza 8 mg, oral, Every 8 hours PRN Commonly known as: ZOFRAN potassium chloride 10 MEQ CR capsule Refills: 0 Commonly known as: KLOR-CON SPRINKLE sennosides-docusate sodium 8.6-50 mg Refills: 0 Dose: 2 tablet Signed by: Jesi Phlipot, STUCCO APPLICATOR-GEOTECHNICIAL PROPERTIES TECHNICIAN 2 tablets, oral, Nightly Commonly known as: SENOKOT-S sulfamethoxazole-trimethoprim 800-160 mg per tablet Quantity: 60 tablet Refills: 1 For diagnoses: GBM (glioblastoma multiforme) ([facility]) Signed by: Guillermo Mendoza Take 1 tab daily, on Saturday and every week. Commonly known as: BACTRIM DS temozolomide 180 MG chemo capsule Quantity: 42 capsule Refills: 0 For diagnoses: GBM (glioblastoma multiforme) ([facility]) Dose: 75 mg/m2/day Signed by: Guillermo Mendoza 75 mg/m2/day (180 mg), oral, Daily Commonly known as: TEMODAR traZODone 50 mg tablet Refills: 0 Dose: 25 mg Commonly known as: DESYREL Review of Symptoms: Review of Systems ECO- Symptomatic; in bed >50% of the day Physical Exam: General: Well appearing, in no acute distress. Vitals: BP 91/49 Pulse 78 Temp 36.6 C (97.9 F) (Oral) Resp 16 SpO2 96% There is no height or weight on file to calculate BMI. Eyes: No icterus, no conjuctival erythema ENT: Pharyngeal mucosa was moist without exudate and inflammation or ulcerations. Tongue was midline and appeared normal.Gums were unremarkable. Lymph nodes: No palpable adenopathy Neck: Supple. There were no masses, tenderness. Trachea was midline. Respiratory: Respirations were non-labored. Lungs were clear to auscultation. There was no dullness to percussion. Cardiac: Regular rate and rhythm, S1 [...] Recent Imaging: No results found. Recent Labs: Recent Results (from the past 2 weeks) DAILY RADIATION TREATMENT Collection Time: 12/14/24 11:06 AM Result Value Ref Range Course Id C1 Course Start Date 11/13/2024 First Treatment Date 12/07/2024 Last Treatment Date 12/14/2024 Elapsed Days 7 Reference Point Id Rx Brain Dose Given To Date 1,200 Session Dose Given 200 Plan ID RtTempLobeEd Plan Name Rt Temportal Lobe and Edema; IMRT VMAT Plan Fractions Treated 6 Fractions Prescribed 23 Prescribed Dose per Fraction 200 Plan Total Prescribed Dose 4,600 DAILY RADIATION TREATMENT Collection Time: 12/15/24 9:15 AM Result Value Ref Range Course Id C1 Course Start Date 11/13/2024 First Treatment Date 12/07/2024 Last Treatment Date 12/15/2024 Elapsed Days 8 Reference Point Id Rx Brain Dose Given To Date 1,400 Session Dose Given 200 Plan ID RtTempLobeEd Plan Name Rt Temportal Lobe and Edema; IMRT VMAT Plan Fractions Treated 7 Fractions Prescribed 23 Prescribed Dose per Fraction 200 Plan Total Prescribed Dose 4,600 DAILY RADIATION TREATMENT Collection Time: 12/16/24 9:37 AM Result Value Ref Range Course Id C1 Course Start Date 11/13/2024 First Treatment Date 12/07/2024 Last Treatment Date 12/16/2024 Elapsed Days 9 Reference Point Id Rx Brain Dose Given To Date 1,600 Session Dose Given 200 Plan ID RtTempLobeEd Plan Name Rt Temportal Lobe and Edema; IMRT VMAT Plan Fractions Treated 8 Fractions Prescribed 23 Prescribed Dose per Fraction 200 Plan Total Prescribed Dose 4,600 DAILY RADIATION TREATMENT Collection Time: 12/17/24 9:22 AM Result Value Ref Range Course Id C1 Course Start Date 11/13/2024 First Treatment Date 12/07/2024 Last Treatment Date 12/17/2024 Elapsed Days 10 Reference Point Id Rx Brain Dose Given To Date 1,800 Session Dose Given 200 Plan ID RtTempLobeEd Plan Name Rt Temportal Lobe and Edema; IMRT VMAT Plan Fractions Treated 9 Fractions Prescribed 23 Prescribed Dose per Fraction 200 Plan Total Prescribed Dose 4,600 DAILY RADIATION TREATMENT Collection Time: 12/18/24 9:23 AM Result Value Ref Range Course Id C1 Course Start Date 11/13/2024 First Treatment Date 12/07/2024 Last Treatment Date 12/18/2024 Elapsed Days 11 Reference Point Id Rx Brain Dose Given To Date 2,000 Session Dose Given 200 Plan ID RtTempLobeEd Plan Name Rt Temportal Lobe and Edema; IMRT VMAT Plan Fractions Treated 10 Fractions Prescribed 23 Prescribed Dose per Fraction 200 Plan Total Prescribed Dose 4,600 DAILY RADIATION TREATMENT Collection Time: 12/22/24 9:41 AM Result Value Ref Range Course Id C1 Course Start Date 11/13/2024 First Treatment Date 12/07/2024 Last Treatment Date 12/22/2024 Elapsed Days 15 Reference Point Id Rx Brain Dose Given To Date 2,200 Session Dose Given 200 Plan ID RtTempLobeEd Plan Name Rt Temportal Lobe and Edema; IMRT VMAT Plan Fractions Treated 11 Fractions Prescribed 23 Prescribed Dose per Fraction 200 Plan Total Prescribed Dose 4,600 DAILY RADIATION TREATMENT Collection Time: 12/23/24 10:13 AM Result Value Ref Range Course Id C1 Course Start Date 11/13/2024 First Treatment Date 12/07/2024 Last Treatment Date 12/23/2024 Elapsed Days 16 Reference Point Id Rx Brain Dose Given To Date 2,400 Session Dose Given 200 Plan ID RtTempLobeEd Plan Name Rt Temportal Lobe and Edema; IMRT VMAT Plan Fractions Treated 12 Fractions Prescribed 23 Prescribed Dose per Fraction 200 Plan Total Prescribed Dose 4,600 DAILY RADIATION TREATMENT Collection Time: 12/24/24 10:07 AM Result Value Ref Range Course Id C1 Course Start Date 11/13/2024 First Treatment Date 12/07/2024 Last Treatment Date 12/24/2024 Elapsed Days 17 Reference Point Id Rx Brain Dose Given To Date 2,600 Session Dose Given 200 Plan ID RtTempLobeEd Plan Name Rt Temportal Lobe and Edema; IMRT VMAT Plan Fractions Treated 13 Fractions Prescribed 23 Prescribed Dose per Fraction 200 Plan Total Prescribed Dose 4,600 DAILY RADIATION TREATMENT Collection Time: 12/25/24 9:46 AM Result Value Ref Range Course Id C1 Course Start Date 11/13/2024 First Treatment Date 12/07/2024 Last Treatment Date 12/25/2024 Elapsed Days 18 Reference Point Id Rx Brain Dose Given To Date 2,800 Session Dose Given 200 Plan ID RtTempLobeEd Plan Name Rt Temportal Lobe and Edema; IMRT VMAT Plan Fractions Treated 14 Fractions Prescribed 23 Prescribed Dose per Fraction 200 Plan Total Prescribed Dose 4,600 Diagnosis Problem list: Problem List Items Addressed This Visit Other GBM (glioblastoma multiforme) ([facility]) - Primary Impression: Brain glioblastoma, 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 History of Multiple sclerosis Thrombocytopenia Recent history of sepsis 11/2024 Plan: I reviewed the final path from recent craniectomy. The patient's final path showed glioblastoma, WHO grade 4 consistent with GBM. Small subset of tumor cells Ki-67: Very high labeling index (greater than 50% within the most proliferative areas). I discussed the natural history of GBM, prognosis is poor especially her tumor is negative for MGMT promoter methylation. Given the nature of this condition, the goals of treatment are palliative rather than curative. At this point the patient is not a good candidate for concurrent Temodar treatment Due to her performance status, NEGATIVE MGMT methylation, thrombocytopenia and most recent sepsis. In patients with glioblastoma, MGMT-negative status is generally associated with resistance to temozolomide (TMZ) treatment. She will continue her radiation only. I would not recommend Temodar during her radiation due to her performance status. Hold temodar during radiation. MRI w/wo in early 02/2025. If scan stable, plan to start adjuvant temodar (5 days/month). F/u in mid 02/2025 The patient's Temodar was calculated as 360 mg daily x 5 in adjuvant setting. Common side effects of Temodar include nausea, cytopenia, and an increased risk of infection. Thank you. Guillermo Mendoza MD Please note that portions of this note were generated using voice recognition [employer]*Modal dictation software. Although every effort was made to ensure the accuracy of this automated tank worker, some errors in tank worker may have occurred. CC: Patient Care Team: Fred Gracia APRN-GEOTECHNICIAL PROPERTIES TECHNICIAN as PCP - General (Nurse Practitioner) PCP:FRED GRACIA Referring MD: Fred Gracia APRN-* documented in this encounter [facility] 12-25-2024 Instructions Guillermo Mendoza MD - 12/25/2024 9:45 AM EDT Hold temodar during radiation. MRI w/wo in early 02/2025. If scan stable, plan to start adjuvant temodar (5 days/month). F/u in mid 02/2025 documented in this encounter [facility] 12-10-2024 History of Presen t illness Narrative Patient saw Dr. Mendoza today for follow up. Orders received to continue to hold temodar. Get cbc and cmp this week. Weight and height rechecked today. Dr. Mendoza. Phone call to [facility] spoke with Delores to continue to hold Temodar and to get cbc and cmp. Will follow up in two weeks to reevaluate. documented in this encounter [facility] 12-10-2024 History of Presen t illness Narrative Images from the original note were not included. [facility] 12/10/24 Anupama Vasquez is a 54 y.o. year old female seen today in the oncology clinic. Chief Complaint Patient presents with Follow-up History of Present Illness: Mrs. 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 Negative for MGMT promoter methylation. RADIATION TREATMENT FROM 12/06/24 Interval history: Most recently in early November 2024, the patient was hospitalized in [place] ICU for catheter-related sepsis. She was started on radiation treatment 4 days ago. She told me she can not remember the information I gave her from last consultation regarding the side effects of Temodar. She is currently wheelchair-bound. She told me she is able to see better with much less double vision,. She has no difficulty with her speech but has difficulty to use her phone. She has a son and a daughter. She is here in clinic by herself. Past Medical History: Diagnosis Date MS (multiple sclerosis) ([facility]) 2012 Past Surgical History: Procedure Laterality Date CARPAL TUNNEL RELEASE Left SHOULDER ARTHROSCOPY W/ ROTATOR CUFF REPAIR Left SYNAPTIVE CRANIOTOMY EXCISION TUMOR Right 09/23/2024 Performed by Jair Espinal MD at [facility] Family History Problem Relation Age of Onset [...] Strain: High Risk (06/04/2023) Received from [facility] Overall Financial Resource Strain (CARDIA) Difficulty of Paying Living Expenses: Very hard Food Insecurity: No Food Insecurity (11/13/2024) Hunger Screening Food Insecurity - Worry: Never True Food Insecurity - Inability: Never True Transportation Needs: No Transportation Needs (08/28/2024) PRAPARE - Transportation Lack of Transportation (Medical): No Lack of Transportation (Non-Medical): No Physical Activity: Sufficiently Active (06/04/2023) Received from [facility] Exercise Vital Sign Days of Exercise per Week: 4 days Minutes of Exercise per Session: 40 min Stress: No Stress Concern Present (06/04/2023) Received from [facility] Citizen Of [place] Ethel of Occupational Health - Occupational Stress Questionnaire Feeling of Stress : Only a little Social Connections: Moderately Integrated (06/04/2023) Received from [facility] Social Connection and Isolation Panel [NHANES] Frequency of Communication with Friends and Family: Twice a week Frequency of Social Gatherings with Friends and Family: Once a week Attends Zoroastrian Services: 1 to 4 times per year [...] Known Allergies Medication List Accurate as of December 10, 2024 10:46 AM. If you have any questions, ask your nurse or doctor. Medications Continued This Visit acetaminophen 325 mg tablet Refills: 0 Dose: 650 mg Commonly known as: TYLENOL bumetanide 2 mg tablet Refills: 0 Commonly known as: BUMEX busPIRone 7.5 mg tablet Refills: 0 Dose: 7.5 mg Commonly known as: BUSPAR dexAMETHasone 4 mg tablet Refills: 0 Commonly known as: DECADRON levETIRAcetam 500 mg tablet Refills: 0 Dose: 500 mg Signed by: Jesi Lewis, STUCCO APPLICATOR-GEOTECHNICIAL PROPERTIES TECHNICIAN 500 mg, oral, 2 times daily Commonly known as: KEPPRA levoFLOXacin 500 mg tablet Refills: 0 Dose: 500 mg Commonly known as: LEVAQUIN metoprolol tartrate 25 mg tablet Refills: 0 Dose: 25 mg Signed by: Jesi Lewis, STUCCO APPLICATOR-GEOTECHNICIAL PROPERTIES TECHNICIAN 25 mg, oral, 2 times daily Commonly known as: LOPRESSOR mirtazapine 15 mg disintegrating tablet Refills: 0 Dose: 15 mg Commonly known as: REMERON CANDI-TAB nystatin powder Refills: 0 Commonly known as: MYCOSTATIN ondansetron 8 mg tablet Quantity: 30 tablet Refills: 2 Dose: 8 mg Signed by: Guillermo Mendoza 8 mg, oral, Every 8 hours PRN Commonly known as: ZOFRAN potassium chloride 10 MEQ CR capsule Refills: 0 Commonly known as: KLOR-CON SPRINKLE sennosides-docusate sodium 8.6-50 mg Refills: 0 Dose: 2 tablet Signed by: Jesi Lewis, STUCCO APPLICATOR-GEOTECHNICIAL PROPERTIES TECHNICIAN 2 tablets, oral, Nightly Commonly known as: SENOKOT-S sulfamethoxazole-trimethoprim 800-160 mg per tablet Quantity: 60 tablet Refills: 1 For diagnoses: GBM (glioblastoma multiforme) ([facility]) Signed by: Guillermo Mendoza Take 1 tab daily, on Saturday and every week. Commonly known as: BACTRIM DS temozolomide 180 MG chemo capsule Quantity: 42 capsule Refills: 0 For diagnoses: GBM (glioblastoma multiforme) ([facility]) Dose: 75 mg/m2/day Signed by: Guillermo Mendoza 75 mg/m2/day (180 mg), oral, Daily Commonly known as: TEMODAR traZODone 50 mg tablet Refills: 0 Dose: 25 mg Commonly known as: DESYREL Review of Symptoms: Review of Systems ECO- Symptomatic; in bed >50% of the day Physical Exam: General: Well appearing, in no acute distress. Vitals: BP 90/49 Pulse 79 Temp 36.7 C (98 F) (Oral) Resp 17 Ht 165 cm (5' 4.96 ) Wt 128.6 kg (283 lb 9.6 oz) SpO2 98% BMI 47.25 kg/m Body mass index is 47.25 kg/m . Eyes: No icterus, no conjuctival erythema ENT: Pharyngeal mucosa was moist without exudate and inflammation or ulcerations. Tongue was midline and appeared normal.Gums were unremarkable. Lymph nodes: No palpable adenopathy Neck: Supple. There were no masses, tenderness. Trachea was midline. Respiratory: Respirations were non-labored. Lungs were clear to auscultation. There was no dullness to percussion. Cardiac: Regular rate and rhythm, S1 [...] Recent Imaging: No results found. Recent Labs: Recent Results (from the past 2 weeks) DAILY RADIATION TREATMENT Collection Time: 12/07/24 10:42 AM Result Value Ref Range Course Id C1 Course Start Date 11/13/2024 First Treatment Date 12/07/2024 Last Treatment Date 12/07/2024 Elapsed Days 0 Reference Point Id Rx Brain Dose Given To Date 200 Session Dose Given 200 Plan ID RtTempLobeEd Plan Name Rt Temportal Lobe and Edema; IMRT VMAT Plan Fractions Treated 1 Fractions Prescribed 23 Prescribed Dose per Fraction 200 Plan Total Prescribed Dose 4,600 DAILY RADIATION TREATMENT Collection Time: 12/08/24 12:35 PM Result Value Ref Range Course Id C1 Course Start Date 11/13/2024 First Treatment Date 12/07/2024 Last Treatment Date 12/08/2024 Elapsed Days 1 Reference Point Id Rx Brain Dose Given To Date 400 Session Dose Given 200 Plan ID RtTempLobeEd Plan Name Rt Temportal Lobe and Edema; IMRT VMAT Plan Fractions Treated 2 Fractions Prescribed 23 Prescribed Dose per Fraction 200 Plan Total Prescribed Dose 4,600 DAILY RADIATION TREATMENT Collection Time: 12/09/24 12:23 PM Result Value Ref Range Course Id C1 Course Start Date 11/13/2024 First Treatment Date 12/07/2024 Last Treatment Date 12/09/2024 Elapsed Days 2 Reference Point Id Rx Brain Dose Given To Date 600 Session Dose Given 200 Plan ID RtTempLobeEd Plan Name Rt Temportal Lobe and Edema; IMRT VMAT Plan Fractions Treated 3 Fractions Prescribed 23 Prescribed Dose per Fraction 200 Plan Total Prescribed Dose 4,600 DAILY RADIATION TREATMENT Collection Time: 12/10/24 10:19 AM Result Value Ref Range Course Id C1 Course Start Date 11/13/2024 First Treatment Date 12/07/2024 Last Treatment Date 12/10/2024 Elapsed Days 3 Reference Point Id Rx Brain Dose Given To Date 800 Session Dose Given 200 Plan ID RtTempLobeEd Plan Name Rt Temportal Lobe and Edema; IMRT VMAT Plan Fractions Treated 4 Fractions Prescribed 23 Prescribed Dose per Fraction 200 Plan Total Prescribed Dose 4,600 Diagnosis Problem list: Problem List Items Addressed This Visit Hematopoietic and Hemostatic Thrombocytopenia Other GBM (glioblastoma multiforme) ([facility]) - Primary Impression: Brain glioblastoma, 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 History of Multiple sclerosis Thrombocytopenia Recent history of sepsis 11/2024 Plan: I reviewed the final path from recent craniectomy. The patient's final path showed glioblastoma, WHO grade 4 consistent with GBM. Small subset of tumor cells Ki-67: Very high labeling index (greater than 50% within the most proliferative areas). I discussed the natural history of GBM, prognosis is poor especially her tumor is negative for MGMT promoter methylation. Given the nature of this condition, the goals of treatment are palliative rather than curative. At this point the patient is not a good candidate for concurrent Temodar treatment Due to her performance status, NEGATIVE MGMT methylation, thrombocytopenia and most recent sepsis. In patients with glioblastoma, MGMT-negative status is generally associated with resistance to temozolomide (TMZ) treatment. She will continue her radiation for now. The patient's Temodar was calculated as 180 mg daily. Recheck her current weight, CBC CMP for baseline. I will see her back in 2 weeks. We will schedule a repeat MRI at the end of the concurrent chemoradiation period, and if there is no evidence of disease progression, the patient will start adjuvant Temodar treatment of 5 days per month for 6-12 cycles. To monitor progress, MRI scans will be repeated every three months. Common side effects of Temodar include nausea, cytopenia, and an increased risk of infection. Thank you. Guillermo Mendoza MD Please note that portions of this note were generated using voice recognition [employer]*Modal dictation software. Although every effort was made to ensure the accuracy of this automated tank worker, some errors in tank worker may have occurred. CC: Patient Care Team: Fred Gracia APRN-GEOTECHNICIAL PROPERTIES TECHNICIAN as PCP - General (Nurse Practitioner) PCP:FRED GRACIA Referring MD: Fred Gracia APRN-* documented in this encounter [facility] 12-04-2024 History of Presen t illness Narrative Images from the original note were not included. Spoke with Kristine at the [facility]. They will hold Temodar until she is seen by Dr. Mendoza on December 10 at 09:15. DDr. Mendoza needs to see her first to determine if she is well enough to start it. Kristine verbalized understanding and rad onc updated. MD She Florentino RN I will not start treatment with Temodar until she is done with antibiotics. I need to see her 1st before start Temodar Previous Messages ----- Message ----- From: She Drew RN Sent: 12/03/2024 2:26 PM EDT To: Guillermo Mendoza MD Subject: start temodar patient was admitted over weekend at [facility] ICU, for sepsis (believed to be r/t alexis catheter/UTI) . She was discharged and will be on antibiotics for one week. Radiation plans to start Saturday regardless of temodar starting. When can she start the temodar? documented in this encounter [facility] 12-03-2024 History of Presen t illness Narrative Narrative Writer contacts [facility] [phone]; speaks to [place]/Transportation Shiva confirms transportation to bring patient starting 12/07/24 at 10:15am [place] at [place] reports patient still on antibiotic course until 12/12/24 Update provided to She/[facility] and she will consult Dr Mendoza regarding Temodar start date Dr Xiong orders to still begin radiation, even if Temodar is held/delayed documented in this encounter [facility] 11-30-2024 History of Presen t illness Narrative Narrative Writer contacts [facility] [phone] to inform that plan is ready to begin radiation treatment, as soon as tomorrow if possible It is confirmed that Temodar has been received for patient and ready to be administered per our direction Update received that patient was admitted over weekend and is currently IP at ICU [facility], for sepsis (believed to be r/t alexis catheter/UTI) documented in this encounter [facility] 11-24-2024 History of Presen t illness Narrative Received a call from nurse Jessica at [facility]. She has informed our office that patient's [...] date and instructions. documented in this encounter [facility] 11-24-2024 Hospital Discharg e instructions Patient Education 11/24/2024 09:06:02 Acute Urinary Retention, Female, [id number] Acute Urinary Retention, Female Acute urinary retention [...] Follow these instructions at home: Medicines Take dhzn-wki-[id number] and prescription medicines only as told by [...] provider. Document Revised: 01/25/2021 Document Reviewed: 01/25/2021 [employer] Patient Education 2023 [employer]. Follow Up Care 10/09/2024 11:33:20 With:BYRON FIGUEROA, REGINA Pedraza, EFFIEL Address: [address] [place] [address] When:Within 3 Month(s) [facility] 11-24-2024 Note Patient Education Obstetrics and [...] these instructions at home: Medicines ??? Take [id number]-ffihzti and prescription medicines only as told by [...] provider. Document Revised: 01/25/2021 Document Reviewed: 01/25/2021 [employer] Patient Education ? 2023 [employer]. [facility] 11-19-2024 Evaluation note Diagnosis Onset Date Resolution BRANDON (acute kidney injury) acute November 19, 2024 2 :21pm GBM (glioblastoma multiforme) acute November 19, 2024 2 :21pm Hyperlipemia acute November 19 2:21pm Hypertension acute November 19 2:21pm Multiple sclerosis acute November 192024 2:21pm [facility] Work Phone: 1(215) 710-862807-03-2025 Evaluation note* Diagnosis Onset Date Resolution Status Admit Date BRANDON (acute kidney injury) acute November 19, 2024 2:21pm Hyperlipemia acute November 19 2:21pm Hypertension acute November 19 2:21pm Multiple sclerosis acute November 192024 2:21pm [facility] Work Phone: 1(950) 729-592806-27-2025 Miscellaneous Notes* Telephone Encounter - Cucaangy Sullivan - 11/13/2024 12:46 PM EDT Spoke with patient to let her know that she will be responsible for 40% of the bills. Patient states that she is ok with this. [facility] Telephone encounter Note* Telephone Encounter - Cuca Sullivan - 11/13/2024 12:46 PM EDT Spoke with patient to let her know that she will be responsible for 40% of the bills. Patient states that she is ok with this. [facility]06-26-2025 History of Present illness Narrative* Nancy Hernandez RN - 11/12/2024 3:45 PM EDT Patient accompanied by assistant property manager from [facility] for Consult with Dr Sandoval (and Dr Mendoza) for diagnosis of Glioblastoma Craniotomy performed by Dr Espinal on 09/23/24 MR/Brain for SRS treatment planning tomorrow 11/13 at 1015am; Consent obtained to perform CT/Sim after with intention to plan concurrent ChemoRT with daily Temodar AVS provided with understanding verbalized [facility] History of Present illness Narrative* She Drew RN - 11/12/2024 1:53 PM EDT Patient saw Dr. Mendoza for consult for glioblastoma. Patient unsure if she wants to pursue concurrent chemo with RT. Will call patient in two weeks to see if she has made her decision. documented in this encounterMercy Health [facility]06-26-[facility] History of Present illness Narrative* Nancy Hernandez RN - 11/12/2024 12:17 PM EDT RN attempted to contact Pt daughter Anna and son Aman per request of patient and Dr Sandoval to further discuss case and treatment planning; No answer on either line; left vm requesting return call documented in this encounterMercy Health Kings [facility]06-26-2025 History of Present illness Narrative* Guillermo Mendoza MD - 11/12/2024 11:00 AM EDT Images from the original note were not included. [facility] 11/12/24 Anupama Vasuqez is a 54 y.o. 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 Negative for MGMT promoter methylation. The patient came to her clinic for my oncologic or opinion regarding further treatment. She is hereaccompanied by a caregiver from assisted. She told me she is able to [...] Medical History: Diagnosis Date MS (multiple sclerosis) ([facility]) 2012 Past Surgical History: Procedure Laterality Date CARPAL TUNNEL RELEASE Left SHOULDER ARTHROSCOPY W/ ROTATOR CUFF REPAIR Left SYNAPTIVE CRANIOTOMY EXCISION TUMOR Right 09/23/2024 Performed by Jair Espinal MD at [facility] Family History Problem Relation Age of Onset [...] Strain: High Risk (06/04/2023) Received from [facility] Overall Financial Resource Strain (CARDIA) Difficulty of Paying Living Expenses: Very hard Food Insecurity: No Food Insecurity (11/10/2024) Hunger Screening Food Insecurity - Worry: Never True Food Insecurity - Inability: Never True Transportation Needs: No Transportation Needs (08/28/2024) PRAPARE - Transportation Lack of Transportation (Medical): No Lack of Transportation (Non-Medical): No Physical Activity: Sufficiently Active (06/04/2023) Received from [facility] Exercise Vital Sign Days of Exercise per Week: 4 days Minutes of Exercise per Session: 40 min Stress: No Stress Concern Present (06/04/2023) Received from [facility] of Occupational Health - Occupational Stress Questionnaire Feeling of Stress : Only a little Social Connections: Moderately Integrated (06/04/2023) Received from [facility] Social Connection and Isolation Panel [NHANES] Frequency of Communication with Friends and Family: Twice a week Frequency of Social Gatherings with Friends and Family: Once a week Attends Zoroastrian Services: 1 to 4 times per year [...] Refills: 0 Dose: 500 mg Signed by: JACQUELINE Villanueva 500 mg, oral, 2 times daily Commonly known as: KEPPRA levoFLOXacin 500 mg tablet Refills: 0 Dose: 500 mg Commonly known as: LEVAQUIN metoprolol tartrate 25 mg tablet Refills: 0 Dose: 25 mg Signed by: JACQUELINE Villanueva 25 mg, oral, 2 times daily Commonly [...] Addressed This Visit Other GBM (glioblastoma multiforme) ([facility]) - Primary Impression: Brain glioblastoma, 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 CC: Patient Care Team: Fred Gracia APRN-GEOTECHNICIAL PROPERTIES TECHNICIAN as PCP - General (Nurse Practitioner) Jacob Kaiser MD as Consulting Physician (Radiation Oncology) PCP:FRED GRACIA Referring MD: Reji Garcia APRN-* documented in this encounterMercy Health [facility]06-26-2025 Instructions* Patient Instructions* Guillermo Mendoza MD - 11/12/2024 11:00 AM EDT Follow-up in 4 weeks to finalize treatment plan. The patient is deciding whether she wants to proceed with treatment. Plan for concurrent chemoradiation with Temodar documented in this encounterMercy Health [facility]06-25-2025 Miscellaneous Notes* Telephone Encounter - Leyla Gusman - 11/11/2024 1:02 PM EDT Received referral for Radiation consult. Patient is currently at [facility]. I called abiolacaso transferred to [place] I was told he is the transportation transport engineer. [phone] documented in this encounterMercy Health [facility]06-25-2025 Telephone encounter Note* Telephone Encounter - Leyla Gusman - 11/11/2024 1:02 PM EDT Received referral for Radiation consult. Patient is currently at [facility]. I called andrex transferred to [place] I was told he is the transportation transport engineer. [phone] [facility]06-[facility] Miscellaneous Notes* Telephone Encounter - Anya Soni RN - 11/11/2024 11:19 AM EDT Dia from [facility] calls asking that the office note be sent to the [facility] so they can see the plan of care. Faxed as per request. documented in this encounterMercy Health [facility]06-25-2025 Telephone encounter Note* Telephone Encounter - Anya Soni RN - 11/11/2024 11:19 AM EDT Dia from [facility] calls asking that the office note be sent to the [facility] so they can see the plan of care. Faxed as per request. [facility]06-[facility] Miscellaneous Notes* Telephone Encounter - Ellie Coleman CMA - 11/11/2024 9:01 AM EDT L/M ON V/M Daughter Anna asked her to call regarding MANAGER ENTERPRISE referral from Dr. Espinal, patient is currently staying at [facility], asking where patient would like to be seen at for appointment,ask for Ellie. documented in this encounterMercy Health [facility]06-25-2025 Telephone encounter Note* Telephone Encounter - Ellie Coleman CMA - 11/11/2024 9:01 AM EDT L/M ON V/M Daughter Anna asked her to call regarding MANAGER ENTERPRISE referral from Dr. Espinal, patient is currently staying at [facility], asking where patient would like to be seen at for appointment,ask for Ellie. [facility]06-[facility] History of Present illness Narrative* JACQUELINE Goel - 11/10/2024 1:10 PM EDT Images from the original note were not included. [facility] [address] [place] [address], [address] [place] [address] * CHART NOTE ? 11/10/2024 Patient: Anupama Vasquez 1970 [id number] Nurse Practitioner: Reji Garcia CNP Physician: Jair Espinal MD, FAANS IMPRESSION / PLAN 54 y.o. female S/P synpative craniotomy excision tumor performed on 09/23/24 reporting lateral doublevision that began approximately 3 weeks postop. I will refer her to an chief of staff doctor to discuss the use of PRISM glasses [...] weeks postop. She is currently at the [facility] where she is doing PT 3 times [...] Strain: High Risk (06/04/2023) Received from [facility] Overall Financial Resource Strain (CARDIA) Difficulty of Paying Living Expenses: Very hard Food Insecurity: No Food Insecurity (09/16/2024) Hunger Screening Food Insecurity - Worry: Never True Food Insecurity - Inability: Never True Transportation Needs: No Transportation Needs (08/28/2024) PRAPARE - Transportation Lack of Transportation (Medical): No Lack of Transportation (Non-Medical): No Physical Activity: Sufficiently Active (06/04/2023) Received from [facility] Exercise Vital Sign Days of Exercise per Week: 4 days Minutes of Exercise per Session: 40 min Stress: No Stress Concern Present (06/04/2023) Received from [facility] [place] [facility]thel of Occupational Health - Occupational Stress Questionnaire Feeling of Stress : Only a little Social Connections: Moderately Integrated (06/04/2023) Received from [facility] Social Connection and Isolation Panel [NHANES] Frequency of Communication with Friends and Family: Twice a week Frequency of Social Gatherings with Friends and Family: Once a week Attends Zoroastrian Services: 1 to 4 times per year [...] record of the patient encounter. Inadvertent computerized tank worker errors related to syntax, spelling, homophones, and/or inaudibility may be present. Scribe Statement: Scribed for and in the presence of Jair Espinal MD by Wayne Farris. Provider Statement: I, Jair Espinal MD personally performed the services described in the documentation, as scribedby Wayne Farris in my presence, and it is both accurate and complete Wayne Farris 11/10/24 7176 Wayne Farris 11/10/24 1308 Reji Garcia APRN-RUBINA 11/10/24 1420 documented in this encounterProMedica Memorial HospitalAdvanced Cyclone Systems Hillsdale [id number] Instructions* Patient Instructions* Steffanie Marte CMA - 11/10/2024 1:10 PM EDT Patient seen today by KISHA. Referred to opthalmology. Medical oncology and rad/onc. SS * Attachments The following attachments cannot be sent through Care Everywhere. * Quitting smoking for adults (South African) documented in this encounterProMedica Memorial HospitalAdvanced Cyclone Systems Hillsdale [id number] NoteUrology Office/Clinic Note Chief Complaint referral, [place], urinary retention after brain surgery HPI Staff 54 yr old female here due to Urinary retention. Pt has Alexis. Denies any issues w alexis. No gross hematuria. No pain. No leaking around alexis. 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 Pt is her own medical decision maker. [...] of urine, unspecified) Hx MS. Transferred from [facility] to [facility] on 09/18/24 d/t BRANDON, brain mass w shift and AMS. 1.5Lretention upon admission w BRANDON (Corrosion Control Engineer 15.68) bilat hydro on US, improved to [...] E&M of New Patient Moderate 45-59 Min 90313 Influenza immunization status assessed 1030F Medication list [...] Recent) 3074F Follow-up With When Contact Information BRYON FIGUEROA, REGINA Pedraza, LEODAN Within 6 weeks [address] [place] [address] Business (1) Additional Instructions: Patient [...] Use:. Never Smokeless Tobacco Use:. Cigarettes, Yes, 10/09/2024[facility] HospitalComment on above:Result Comment: Electronically Signed By: REGINA MATTHEWS PA-C\.br\Date and Time Signed: 10/09/2510:41 [id number] NotePatient Education Obstetrics and Gynecology Acute Urinary [...] these instructions at home: Medicines ??? Take ncem-coo-sxwihqe and prescription medicines only as told by [...] provider. Document Revised: 01/25/2021 Document Reviewed: 01/25/2021 [employer] Patient Education ? 2023 [employer] 09-29-2024 Miscellaneous Notes* Telephone Encounter - [...] Incision is healing well. documented in this encounterMercy Health [facility]05-13-2025 Telephone encounter Note* Telephone Encounter - Anya [...] with baby shampoo. Incision is healing well. [facility]05-13-2025 Nurse Note* Elma Moreno RN - 09/29/2024 12:17 AM EDTSummary: discharge Report called and given to [facility] Patient called and talked to daughter let her know that she was going to be leaving, patient had nobelongings to send with her Patient left with [facility] transport - Elma Moreno RN 09/29/24 12:19 AM * Laurel Lagunas RN - 09/25/2024 9:46 AM EDT Multidisciplinary Rounds Attendees: Bedside RN, Unit clinical lead, PT, OT, MUNICIPAL ENGINEER, and Care navigation Diet: Dietary Orders (From admission, onward) Start Ordered 09/24/24 1405 Adult diet Level 5 Minced and Moist diet; No straws Diet effective now Comments: Mildly thick liquids Question Answer Comment Diet Type: Level 5 Minced and Moist diet Additional Liquid/Fluid Modifiers: No straws 09/24/24 1407 PT OT MUNICIPAL ENGINEER: PT OT MUNICIPAL ENGINEER Orders (From admission, onward) Start Ordered 09/25/24 [...] Bedside RN, Unit clinical lead, PT, OT, MUNICIPAL ENGINEER, and Care navigation Diet: Dietary Orders (From admission, onward) Start Ordered 09/23/242142 Adult diet Regular Texture Diet effective now Question: Diet Type: Answer: Regular Texture 09/23/242142 PT OT MUNICIPAL ENGINEER: PT OT MUNICIPAL ENGINEER Orders (From admission, onward) Start Ordered 09/24/24 [...] Plan: Needs PT/OT evaluation documented in this encounterMercy Health [facility] Hospital05-13-2025 Miscellaneous Notes* Plan of Care - Elma Moreno RN - 09/29/2024 12:15 AM EDT Problem: Pain Goal: Patient goal is pain score less than 4, able to rest, and participant in treatment plan as appropriate Description: INTERVENTIONS: 1. Encourage patient or legal pharmaceutical representative to report early pain and ask [...] per policy 9. Teach patient or legal pharmaceutical representative interventions for comforting Outcome: Adequate for [...] at the bedside 7. Instruct patient/ patient pharmaceutical representative about use of safety devices 8. Include patient/ patient pharmaceutical representative in decisions related to safety Outcome: [...] hygiene technique. 7. Identify and instruct patient/patient pharmaceutical representative in use of appropriate isolation precautionsfor identified infection/symptoms. 8. Provide and discuss with patient/patient pharmaceutical representative on educational MDRO sheet. 9. Encourage and monitor nutritional status daily and consult bag machine tender if indicated. 10. Implement neutropenic guidelines as needed. Outcome: Adequate for Discharge Problem: Knowledge Deficit Goal: Patient/patient pharmaceutical representative demonstrates understanding of disease process, treatment [...] supplement as ordered 13. Collaborate with clinical bag machine tender 14. Include patient/ patient's pharmaceutical representative in decisions related to nutrition Outcome: [...] Score of =/> 25 or indicated by [facility] Rehab Assessment Goal: Patient should be free from fall Description: Interventions: 1. Jones to environment 2. Hourly rounds addressing the [...] non-skid footwear 11. Teach patient and patient pharmaceutical representative to maintain environment for safety and [...] (cane, walker) within reach 19. Request patient pharmaceutical representative bring adaptive equipment/mobility aids from home or obtain and provide as needed 20. Consult pharmacy regarding effects of med's affecting mobility, cognition, and alternatives 21. Obtain physician order for PT if risk factors associated with mobility are present 22. Obtain physician order for OT as appropriate 23. Utilize diversional activities 24. Educate patient and patient pharmaceutical representative how to maintain a safe environment during visitationtimes (notify nurse prior to leaving bedside) 25. Consider appropriateness of medical or non-medical information specialist 26. Set up voiding schedule as appropriate [...] as ordered Outcome: Adequate for Discharge * PT/OT/MUNICIPAL ENGINEER - Lorna Dias CCC-MUNICIPAL ENGINEER - 09/28/2024 2:37 PM EDT Speech Therapy [...] after meals Medications: In applesauce/puree Discharge Recommendations: [facility] facility Plan Frequency: 2-3days/week Duration: until discharge [...] PO intake following exam. Prognosis Services: Skilled MUNICIPAL ENGINEER services to address above deficits Prognosis/Potential: Good [...] Dysphagia Problem: Swallowing Dates: Start: 09/24/24 Disciplines: MUNICIPAL ENGINEER Goal: LTG: Patient will tolerate least restrictive diet recommended by MUNICIPAL ENGINEER without signs and symptoms of aspiration 90% of the time Dates: Start: 09/24/24 Expected End: 10/25/24 Disciplines: MUNICIPAL ENGINEER Outcomes Date/Time User Outcome 09/28/24 1126 Laurel Moralez CCC-MUNICIPAL ENGINEER Progressing Goal: STG: Patient will complete safety strategies independently during PO intake 90% of the time Dates: Start: 09/24/24 Expected End: 10/25/24 Disciplines: MUNICIPAL ENGINEER Outcomes Date/Time User Outcome 09/28/24 NATANAEL Whitfield Progressing Goal: STG: Patient will complete oral/ pharyngeal strengthening program with resistance with 90% accuracy with minimal cueing Dates: Start: 09/24/24 Expected End: 10/25/24 Disciplines: MUNICIPAL ENGINEER Outcomes Date/Time User Outcome 09/28/24 NATANAEL Whitfield Progressing Goal: STG: Patient will tolerate therapeutic feeding trials of advanced textures with 90% accuracy with minimal cueing Dates: Start: 09/24/24 Expected End: 10/25/24 Disciplines: MUNICIPAL ENGINEER Outcomes Date/Time User Outcome 09/28/24 NATANAEL Whitfield Progressing Template: ST - Rehab Speech Problem: Auditory Comprehension Dates: Start: 09/24/24 Disciplines: MUNICIPAL ENGINEER Goal: LTG: Patient will comprehend communication related to basic medical and social needs and utilize compensatory strategies to maintain safety in a functional living environment Dates: Start: 09/24/24 Expected End: 10/25/24 Disciplines: MUNICIPAL ENGINEER Goal: STG: Patient will answer complex yes/no questions with 90% accuracy with minimal cueing Dates: Start: 09/24/24 Expected End: 10/25/24 Disciplines: MUNICIPAL ENGINEER Goal: STG: Patient will complete 1-3 step commands with 90% accuracy with minimal cueing Dates: Start: 09/24/24 Expected End: 10/25/24 Disciplines: MUNICIPAL ENGINEER Goal: STG: Patient will complete simple, phrase level auditory comprehension tasks with 90% accuracy with minimal cueing Dates: Start: 09/24/24 Expected End: 10/25/24 Disciplines: MUNICIPAL ENGINEER Problem: Cognitive Linguistic Dates: Start: 09/24/24 Disciplines: MUNICIPAL ENGINEER Goal: LTG: Patient will display functional cognitive-linguistic skills to demonstrate appropriate communication and safety within daily activities in a functional living environment Dates: Start: 09/24/24 Expected End: 10/25/24 Disciplines: MUNICIPAL ENGINEER Goal: STG: Patient will demonstrate sustained attention by maintaining focus during a task for 10 minutes with minimal assistance Dates: Start: 09/24/24 Expected End: 10/25/24 Disciplines: MUNICIPAL ENGINEER Goal: STG: Patient will be appropriately oriented to person, place, time and situation with 90% accuracy with minimal cueing Dates: Start: 09/24/24 Expected End: 10/25/24 Disciplines: MUNICIPAL ENGINEER Goal: STG: Patient will describe/demonstrate/initiate use of 3 memory strategies with minimal cueing Dates: Start: 09/24/24 Expected End: 10/25/24 Disciplines: MUNICIPAL ENGINEER Problem: High Level Language Dates: Start: 09/24/24 Disciplines: MUNICIPAL ENGINEER Goal: LTG: Patient will demonstrate use of self-awareness, goal setting, planning, initiation, self-monitoring and problem solving during daily activities to improve safety and awareness in a functional living environment Dates: Start: 09/24/24 Expected End: 10/25/24 Disciplines: MUNICIPAL ENGINEER Goal: STG: Patient will demonstrate functional problem solving and safety awareness with 90% accuracy in daily living tasks in order to increase safe interactions with environment and decrease assistance from caregivers Dates: Start: 09/24/24 Expected End: 10/25/24 Disciplines: MUNICIPAL ENGINEER Problem: Speech Production Dates: Start: 09/24/24 Disciplines: MUNICIPAL ENGINEER Goal: LTG: Patient will develop functional and intelligible speech and utilize compensatory strategies through the use of adequate labial and lingual function, increased articulatory precision and speech prosody Dates: Start: 09/24/24 Expected End: 10/25/24 Disciplines: MUNICIPAL ENGINEER Goal: STG: Patient will use appropriate articulatory accuracy and speech rate when reading/speakingwith 90% accuracy with minimal cueing Dates: Start: 09/24/24 Expected End: 10/25/24 Disciplines: MUNICIPAL ENGINEER Goal: STG: Patient will complete rapid alternating verbal sequences (tongue twisters) with improvedarticulatory precision with 90% accuracy with minimal cueing Dates: Start: 09/24/24 Expected End: 10/25/24 Disciplines: MUNICIPAL ENGINEER Problem: Verbal Expression Dates: Start: 09/24/24 Disciplines: MUNICIPAL ENGINEER Goal: LTG: Patient will utilize compensatory strategies to communicate wants and needs effectively to different conversational partners, maintain safety and participate socially in a functional living environment Dates: Start: 09/24/24 Expected End: 10/25/24 Disciplines: MUNICIPAL ENGINEER Goal: STG: Patient will describe objects, pictures (salient features) with 90% accuracy with minimal cueing to improve word retrieval skills Dates: Start: 09/24/24 Expected End: 10/25/24 Disciplines: MUNICIPAL ENGINEER Goal: STG: Patient will respond to simple/complex open ended questions during activities of daily living with 90% accuracy with minimal cueing Dates: Start: 09/24/24 Expected End: 10/25/24 Disciplines: MUNICIPAL ENGINEER Goal: STG: Patient will complete simple to complex divergent and convergent naming tasks with 90% accuracy with minimal cueing to improve thought organization Dates: Start: 09/24/24 Expected End: 10/25/24 Disciplines: MUNICIPAL ENGINEER Speech Therapy Care Plan (Resolved) There are [...] for today 09/28/24 at 4 PM to [facility]. confirmed in [employer]. * Discharge Planning Note - Samantha Lemon - 09/28/2024 11:25 AM EDT DISCHARGE PLANNING NOTE Prior Auth approved for admission to : [facility] (P#: ; F#: ) Approval # [id number] Valid for Dates: 09/28/2024 - 09/30/2024 * PT/OT/MUNICIPAL ENGINEER - NATANAEL Perea - 09/28/2024 11:24 AM EDT Speech Therapy Dysphagia Treatment Note Assessment: Current Diet Tolerance: Level 2 Mildly Thick and Level 5 Minced and Moist Progress: improving Pain Assessment Pain Assessment: No/denies pain Recommendations Diet: Level 5 minced and moist diet, level 2 mildly thick liquids (no straws) Discharge: Long Term Facility Precautions Aspiration Plan: Plan of Care: [...] Dysphagia Problem: Swallowing Dates: Start: 09/24/24 Disciplines: MUNICIPAL ENGINEER Goal: LTG: Patient will tolerate least restrictive diet recommended by MUNICIPAL ENGINEER without signs and symptoms of aspiration 90% of the time Dates: Start: 09/24/24 Expected End: 10/25/24 Disciplines: MUNICIPAL ENGINEER Outcomes Date/Time User Outcome 09/28/24 NATANAEL Whitfield Progressing Goal: STG: Patient will complete safety strategies independently during PO intake 90% of the time Dates: Start: 09/24/24 Expected End: 10/25/24 Disciplines: MUNICIPAL ENGINEER Outcomes Date/Time User Outcome 09/28/24 NATANAEL Whitifeld Progressing Goal: STG: Patient will complete oral/ pharyngeal strengthening program with resistance with 90% accuracy with minimal cueing Dates: Start: 09/24/24 Expected End: 10/25/24 Disciplines: MUNICIPAL ENGINEER Outcomes Date/Time User Outcome 09/28/24 NATANAEL Whitfield Progressing Goal: STG: Patient will tolerate therapeutic feeding trials of advanced textures with 90% accuracy with minimal cueing Dates: Start: 09/24/24 Expected End: 10/25/24 Disciplines: MUNICIPAL ENGINEER Outcomes Date/Time User Outcome 09/28/24 NATANAEL Whitfield Progressing Template: ST - Rehab Speech Problem: Auditory Comprehension Dates: Start: 09/24/24 Disciplines: MUNICIPAL ENGINEER Goal: LTG: Patient will comprehend communication related to basic medical and social needs and utilize compensatory strategies to maintain safety in a functional living environment Dates: Start: 09/24/24 Expected End: 10/25/24 Disciplines: MUNICIPAL ENGINEER Goal: STG: Patient will answer complex yes/no questions with 90% accuracy with minimal cueing Dates: Start: 09/24/24 Expected End: 10/25/24 Disciplines: MUNICIPAL ENGINEER Goal: STG: Patient will complete 1-3 step commands with 90% accuracy with minimal cueing Dates: Start: 09/24/24 Expected End: 10/25/24 Disciplines: MUNICIPAL ENGINEER Goal: STG: Patient will complete simple, phrase level auditory comprehension tasks with 90% accuracy with minimal cueing Dates: Start: 09/24/24 Expected End: 10/25/24 Disciplines: MUNICIPAL ENGINEER Problem: Cognitive Linguistic Dates: Start: 09/24/24 Disciplines: MUNICIPAL ENGINEER Goal: LTG: Patient will display functional cognitive-linguistic skills to demonstrate appropriate communication and safety within daily activities in a functional living environment Dates: Start: 09/24/24 Expected End: 10/25/24 Disciplines: MUNICIPAL ENGINEER Goal: STG: Patient will demonstrate sustained attention by maintaining focus during a task for 10 minutes with minimal assistance Dates: Start: 09/24/24 Expected End: 10/25/24 Disciplines: MUNICIPAL ENGINEER Goal: STG: Patient will be appropriately oriented to person, place, time and situation with 90% accuracy with minimal cueing Dates: Start: 09/24/24 Expected End: 10/25/24 Disciplines: MUNICIPAL ENGINEER Goal: STG: Patient will describe/demonstrate/initiate use of 3 memory strategies with minimal cueing Dates: Start: 09/24/24 Expected End: 10/25/24 Disciplines: MUNICIPAL ENGINEER Problem: High Level Language Dates: Start: 09/24/24 Disciplines: MUNICIPAL ENGINEER Goal: LTG: Patient will demonstrate use of self-awareness, goal setting, planning, initiation, self-monitoring and problem solving during daily activities to improve safety and awareness in a functional living environment Dates: Start: 09/24/24 Expected End: 10/25/24 Disciplines: MUNICIPAL ENGINEER Goal: STG: Patient will demonstrate functional problem solving and safety awareness with 90% accuracy in daily living tasks in order to increase safe interactions with environment and decrease assistance from caregivers Dates: Start: 09/24/24 Expected End: 10/25/24 Disciplines: MUNICIPAL ENGINEER Problem: Speech Production Dates: Start: 09/24/24 Disciplines: MUNICIPAL ENGINEER Goal: LTG: Patient will develop functional and intelligible speech and utilize compensatory strategies through the use of adequate labial and lingual function, increased articulatory precision and speech prosody Dates: Start: 09/24/24 Expected End: 10/25/24 Disciplines: MUNICIPAL ENGINEER Goal: STG: Patient will use appropriate articulatory accuracy and speech rate when reading/speakingwith 90% accuracy with minimal cueing Dates: Start: 09/24/24 Expected End: 10/25/24 Disciplines: MUNICIPAL ENGINEER Goal: STG: Patient will complete rapid alternating verbal sequences (tongue twisters) with improvedarticulatory precision with 90% accuracy with minimal cueing Dates: Start: 09/24/24 Expected End: 10/25/24 Disciplines: MUNICIPAL ENGINEER Problem: Verbal Expression Dates: Start: 09/24/24 Disciplines: MUNICIPAL ENGINEER Goal: LTG: Patient will utilize compensatory strategies to communicate wants and needs effectively to different conversational partners, maintain safety and participate socially in a functional living environment Dates: Start: 09/24/24 Expected End: 10/25/24 Disciplines: MUNICIPAL ENGINEER Goal: STG: Patient will describe objects, pictures (salient features) with 90% accuracy with minimal cueing to improve word retrieval skills Dates: Start: 09/24/24 Expected End: 10/25/24 Disciplines: MUNICIPAL ENGINEER Goal: STG: Patient will respond to simple/complex open ended questions during activities of daily living with 90% accuracy with minimal cueing Dates: Start: 09/24/24 Expected End: 10/25/24 Disciplines: MUNICIPAL ENGINEER Goal: STG: Patient will complete simple to complex divergent and convergent naming tasks with 90% accuracy with minimal cueing to improve thought organization Dates: Start: 09/24/24 Expected End: 10/25/24 Disciplines: MUNICIPAL ENGINEER Speech Therapy Care Plan (Resolved) There are [...] Description: INTERVENTIONS: 1. Encourage patient or legal pharmaceutical representative to report early pain and ask [...] per policy 9. Teach patient or legal pharmaceutical representative interventions for comforting Outcome: Progressing Note: [...] at the bedside 7. Instruct patient/ patient pharmaceutical representative about use of safety devices 8. Include patient/ patient pharmaceutical representative in decisions related to safety Outcome: [...] hygiene technique. 7. Identify and instruct patient/patient pharmaceutical representative in use of appropriate isolation precautionsfor identified infection/symptoms. 8. Provide and discuss with patient/patient pharmaceutical representative on educational MDRO sheet. 9. Encourage and monitor nutritional status daily and consult bag machine tender if indicated. 10. Implement neutropenic guidelines as needed. Outcome: Progressing Note: Evaluation of progress towards goal: hand hygiene is preformed when entering and leaving the room. And no new s/s of infection are present. Will continue to monitor Problem: Knowledge Deficit Goal: Patient/patient pharmaceutical representative demonstrates understanding of disease process, treatment [...] supplement as ordered 13. Collaborate with clinical bag machine tender 14. Include patient/ patient's pharmaceutical representative in decisions related to nutrition Outcome: [...] be free from fall Description: Interventions: 1. Jones to environment 2. Hourly rounds addressing the [...] non-skid footwear 11. Teach patient and patient pharmaceutical representative to maintain environment for safety and [...] (cane, walker) within reach 19. Request patient pharmaceutical representative bring adaptive equipment/mobility aids from home or obtain and provide as needed 20. Consult pharmacy regarding effects of med's affecting mobility, cognition, and alternatives 21. Obtain physician order for PT if risk factors associated with mobility are present 22. Obtain physician order for OT as appropriate 23. Utilize diversional activities 24. Educate patient and patient pharmaceutical representative how to maintain a safe environment during visitationtimes (notify nurse prior to leaving bedside) 25. Consider appropriateness of medical or non-medical information specialist 26. Set up voiding schedule as appropriate [...] discharge at this time, awaiting precert to detention facility. JACQUELINE Ayala 09/28/24 1016 * Discharge Planning Note - RAMIREZ Cotto - 09/28/2024 9:43 AM EDT DISCHARGE PLANNING NOTE Case discussed in daily transition rounds and chart reviewed by CN. Barriers to discharge include SNF precert Discharge Plan remains: return to [facility] SNF. Waiting insurance approval for SNF stay- precert initiated on 09/26. Family is aware and agreeable to transition plan. CN will continue to follow and is available should any further needs arise. - RAMIREZ COTTO 09/28/24 9:44 AM Insurance approved SNF stay. Discharge written, CRF complete. Social work task [facility] to arrange BLS transport and [facility] ambulance was arranged. [facility] notified of discharge and CRF sent. RN [...] Description: INTERVENTIONS: 1. Encourage patient or legal pharmaceutical representative to report early pain and ask [...] per policy 9. Teach patient or legal pharmaceutical representative interventions for comforting Outcome: Progressing Note: [...] at the bedside 7. Instruct patient/ patient pharmaceutical representative about use of safety devices 8. Include patient/ patient pharmaceutical representative in decisions related to safety Outcome: [...] hygiene technique. 7. Identify and instruct patient/patient pharmaceutical representative in use of appropriate isolation precautionsfor identified infection/symptoms. 8. Provide and discuss with patient/patient pharmaceutical representative on educational MDRO sheet. 9. Encourage and monitor nutritional status daily and consult bag machine tender if indicated. 10. Implement neutropenic guidelines as needed. Outcome: Progressing Note: Evaluation of progress towards goal: Narrative Writer assessed pt risk for infection in the beginning and throughout shift. Pt remains afebrile. Will continue to monitor. Problem: Knowledge Deficit Goal: Patient/patient pharmaceutical representative demonstrates understanding of disease process, treatment plan,medications, and discharge instructions Description: INTERVENTIONS 1. Complete learning assessment and assess knowledge base 2. Provide teaching at level of understanding 3. Provide teaching via preferred learning method(s) Outcome: Progressing Note: Evaluation of progress towards goal: Narrative Writer educated pt on admission disease, medications, treatment, [...] supplement as ordered 13. Collaborate with clinical bag machine tender 14. Include patient/ patient's pharmaceutical representative in decisions related to nutrition Outcome: [...] Moderate - High Risk Fall Score Description: [place] Fall Score of =/> 25 or indicated by [facility] Assessment Goal: Patient should be free from fall Description: Interventions: 1. Jones to environment 2. Hourly rounds addressing the [...] non-skid footwear 11. Teach patient and patient pharmaceutical representative to maintain environment for safety and [...] (cane, walker) within reach 19. Request patient pharmaceutical representative bring adaptive equipment/mobility aids from home or obtain and provide as needed 20. Consult pharmacy regarding effects of med's affecting mobility, cognition, and alternatives 21. Obtain physician order for PT if risk factors associated with mobility are present 22. Obtain physician order for OT as appropriate 23. Utilize diversional activities 24. Educate patient and patient pharmaceutical representative how to maintain a safe environment during visitationtimes (notify nurse prior to leaving bedside) 25. Consider appropriateness of medical or non-medical information specialist 26. Set up voiding schedule as appropriate (every 2 hours) Outcome: Progressing Note: Evaluation of progress towards goal: Narrative Writer assessed pt fall precautions in the beginning [...] Description: INTERVENTIONS: 1. Encourage patient or legal pharmaceutical representative to report early pain and ask [...] per policy 9. Teach patient or legal pharmaceutical representative interventions for comforting Outcome: Progressing Note: [...] at the bedside 7. Instruct patient/ patient pharmaceutical representative about use of safety devices 8. Include patient/ patient pharmaceutical representative in decisions related to safety Outcome: [...] hygiene technique. 7. Identify and instruct patient/patient pharmaceutical representative in use of appropriate isolation precautionsfor identified infection/symptoms. 8. Provide and discuss with patient/patient pharmaceutical representative on educational MDRO sheet. 9. Encourage and monitor nutritional status daily and consult bag machine tender if indicated. 10. Implement neutropenic guidelines as needed. Outcome: Progressing Note: Evaluation of progress towards goal: Patient remains afebrile with absence of typical signs of infection such as redness, swelling, purulent drainage, etc. Labs remain within defined limits. Infection preventative measures maintained. Will continue to monitor patient for any signs or symptomsindicating infection while providing care. Problem: Knowledge Deficit Goal: Patient/patient pharmaceutical representative demonstrates understanding of disease process, treatment [...] supplement as ordered 13. Collaborate with clinical bag machine tender 14. Include patient/ patient's pharmaceutical representative in decisions related to nutrition Outcome: Progressing Note: Evaluation of progress towards goal: Patient/patient's pharmaceutical representative is involved in decisions related to [...] be free from fall Description: Interventions: 1. Jones to environment 2. Hourly rounds addressing the [...] non-skid footwear 11. Teach patient and patient pharmaceutical representative to maintain environment for safety and [...] (cane, walker) within reach 19. Request patient pharmaceutical representative bring adaptive equipment/mobility aids from home or obtain and provide as needed 20. Consult pharmacy regarding effects of med's affecting mobility, cognition, and alternatives 21. Obtain physician order for PT if risk factors associated with mobility are present 22. Obtain physician order for OT as appropriate 23. Utilize diversional activities 24. Educate patient and patient pharmaceutical representative how to maintain a safe environment during visitationtimes (notify nurse prior to leaving bedside) 25. Consider appropriateness of medical or non-medical information specialist 26. Set up voiding schedule as appropriate [...] Description: INTERVENTIONS: 1. Encourage patient or legal pharmaceutical representative to report early pain and ask [...] per policy 9. Teach patient or legal pharmaceutical representative interventions for comforting Outcome: Progressing Note: [...] at the bedside 7. Instruct patient/ patient pharmaceutical representative about use of safety devices 8. Include patient/ patient pharmaceutical representative in decisions related to safety Outcome: Progressing Note: Evaluation of progress towards goal: Patient free from injury; bed to low position; skid freesocks applied; call light in reach Problem: Knowledge Deficit Goal: Patient/patient pharmaceutical representative demonstrates understanding of disease process, treatment [...] Description: INTERVENTIONS: 1. Encourage patient or legal pharmaceutical representative to report early pain and ask [...] per policy 9. Teach patient or legal pharmaceutical representative interventions for comforting Outcome: Progressing Note: [...] at the bedside 7. Instruct patient/ patient pharmaceutical representative about use of safety devices 8. Include patient/ patient pharmaceutical representative in decisions related to safety Outcome: [...] hygiene technique. 7. Identify and instruct patient/patient pharmaceutical representative in use of appropriate isolation precautionsfor identified infection/symptoms. 8. Provide and discuss with patient/patient pharmaceutical representative on educational MDRO sheet. 9. Encourage and monitor nutritional status daily and consult bag machine tender if indicated. 10. Implement neutropenic guidelines as needed. Outcome: Progressing Note: Evaluation of progress towards goal: Patient remains afebrile with absence of typical signs of infection such as redness, swelling, purulent drainage, etc. Labs remain within defined limits. Infection preventative measures maintained. Will continue to monitor patient for any signs or symptomsindicating infection while providing care. \ Problem: Knowledge Deficit Goal: Patient/patient pharmaceutical representative demonstrates understanding of disease process, treatment [...] supplement as ordered 13. Collaborate with clinical bag machine tender 14. Include patient/ patient's pharmaceutical representative in decisions related to nutrition Outcome: Progressing Note: Evaluation of progress towards goal: Patient/patient's pharmaceutical representative is involved in decisions related to [...] Score of =/> 25 or indicated by [facility] Assessment Goal: Patient should be free from fall Description: Interventions: 1. Jones to environment 2. Hourly rounds addressing the [...] non-skid footwear 11. Teach patient and patient pharmaceutical representative to maintain environment for safety and [...] (cane, walker) within reach 19. Request patient pharmaceutical representative bring adaptive equipment/mobility aids from home or obtain and provide as needed 20. Consult pharmacy regarding effects of med's affecting mobility, cognition, and alternatives 21. Obtain physician order for PT if risk factors associated with mobility are present 22. Obtain physician order for OT as appropriate 23. Utilize diversional activities 24. Educate patient and patient pharmaceutical representative how to maintain a safe environment during visitationtimes (notify nurse prior to leaving bedside) 25. Consider appropriateness of medical or non-medical information specialist 26. Set up voiding schedule as appropriate [...] auth submitted to: [employer] Via: [employer] On behalf of : [facility] (P#: ; F#: ) Ref# [id number] * Discharge Planning Note - RAMIREZ Cotto - 09/26/2024 9:33 AM EDT DISCHARGE PLANNING NOTE Case discussed in daily transition rounds and chart reviewed by CN. Barriers to discharge include IV Decadron, IV Keppra, D2.5, IV Mag Discharge Plan remains: return to [facility] SNF. PT/OT recommending SNF. Social work sent therapy evaluations to [facility] and they are ready to accept patient [...] Description: INTERVENTIONS: 1. Encourage patient or legal pharmaceutical representative to report early pain and ask [...] per policy 9. Teach patient or legal pharmaceutical representative interventions for comforting Outcome: Progressing Note: [...] at the bedside 7. Instruct patient/ patient pharmaceutical representative about use of safety devices 8. Include patient/ patient pharmaceutical representative in decisions related to safety Outcome: Progressing Note: Evaluation of progress towards goal: Patient free from injury; bed to low position; skid freesocks applied; call light in reach Problem: Knowledge Deficit Goal: Patient/patient pharmaceutical representative demonstrates understanding of disease process, treatment [...] buttock;pt gets turned every 2 hours * PT/OT/MUNICIPAL ENGINEER - Silvia Vasquez OTR/Verena - 09/25/2024 3:55 PM EDT Occupational Therapy Evaluation Discharge Recommendations OT Recommendations : Long Term Facility SNF/ECF Comments: Recommend SNF to inc [...] admitted 09/18/24 from SNF, initially went to [facility] [place] ED for altered mental status, CT shows 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 with Shift,transfer to [facility] overnight-admit to MICU 09/19: Consults to nephrology [...] Medical History: Diagnosis Date MS (multiple sclerosis) ([facility]) 2012 Past Surgical History: Procedure Laterality Date CARPAL TUNNEL RELEASE Left SHOULDER ARTHROSCOPY W/ ROTATOR CUFF REPAIR Left SYNAPTIVE CRANIOTOMY EXCISION TUMOR Right 09/23/2024 Performed by Jair Espinal MD at [facility] OT Treatment/Interventions: Functional transfer training, ADL retraining, [...] skinny stedy, arterial line, alexis, repositioning sling Telemetry/Emery Wheel Molder: Yes Oxygen Used: room air Other: high [...] month. Per EMR pt has been at [facility] Prior Function Lives With: Son (works 3rd [...] with panic attacks Hyperlipidemia, acquired Multiple sclerosis ([facility]) LORENZO (obstructive sleep apnea) Primary hypertension Depression, unspecified Dysphagia, oropharyngeal phase * PT/OT/MUNICIPAL ENGINEER - Shelli Grady, PT - 09/25/2024 3:53 PM EDT Physical Therapy Evaluation Discharge Recommendations PT Recommendations: Long Term Facility SNF/ECF Comments: due to decreased functional [...] admitted 09/18/24 from SNF, initially went to [facility] ED for altered mental status, CT shows 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 with Shift,transfer to [facility] overnight- admit to MICU 09/19: Consults to [...] Medical History: Diagnosis Date MS (multiple sclerosis) ([facility]) 2012 Past Surgical History: Procedure Laterality Date CARPAL TUNNEL RELEASE Left SHOULDER ARTHROSCOPY W/ ROTATOR CUFF REPAIR Left SYNAPTIVE CRANIOTOMY EXCISION TUMOR Right 09/23/2024 Performed by Jair Espinal MD at [facility] PT Treatment/Interventions: Functional transfer training, LE strengthening/ROM, [...] gait belt, skinny stedy, arterial line, alexis Telemetry/Emery Wheel Molder: Yes Oxygen Used: room air Other: high [...] poor historian, asking for pizza and calling publicity writer whit, pt tried to pull out [...] to be discharged to: SNF Discharge Disposition [facility] Name [facility] Phone: [facility] SNF Accepted? Yes Does the patient need discharge transportation arranged? Yes Transportation Arranged Ambulance Patient choice offered Yes List Provided Patient declined Patient Declined Active with Provider Case discussed in daily transition rounds and chart reviewed by CN. Barriers to discharge include PT/OT to see, alexis, wounds(skin tears), monitoring neuro status. Discharge Plan remains: [facility]. Tasked [facility] to send updated clinical notes. Will [...] AM EDT DISCHARGE PLANNING NOTE Updates to [facility] (P#: ; F#: ) * Plan of Care - Elton Morillo RN - 09/25/2024 7:38 AM EDT Problem: Pain Goal: Patient goal is pain score less than 4, able to rest, and participant in treatment plan as appropriate Description: INTERVENTIONS: 1. Encourage patient or legal pharmaceutical representative to report early pain and ask [...] per policy 9. Teach patient or legal pharmaceutical representative interventions for comforting Outcome: Progressing Note: [...] at the bedside 7. Instruct patient/ patient pharmaceutical representative about use of safety devices 8. Include patient/ patient pharmaceutical representative in decisions related to safety Outcome: [...] hygiene technique. 7. Identify and instruct patient/patient pharmaceutical representative in use of appropriate isolation precautionsfor identified infection/symptoms. 8. Provide and discuss with patient/patient pharmaceutical representative on educational MDRO sheet. 9. Encourage and monitor nutritional status daily and consult bag machine tender if indicated. 10. Implement neutropenic guidelines as needed. Outcome: Progressing Note: Evaluation of progress towards goal: Patient remains free from signs of infection at this time. Will continue to monitor. Problem: Knowledge Deficit Goal: Patient/patient pharmaceutical representative demonstrates understanding of disease process, treatment [...] supplement as ordered 13. Collaborate with clinical bag machine tender 14. Include patient/ patient's pharmaceutical representative in decisions related to nutrition Outcome: [...] Score of =/> 25 or indicated by [facility] Assessment Goal: Patient should be free from fall Description: Interventions: 1. Jones to environment 2. Hourly rounds addressing the [...] non-skid footwear 11. Teach patient and patient pharmaceutical representative to maintain environment for safety and [...] (cane, walker) within reach 19. Request patient pharmaceutical representative bring adaptive equipment/mobility aids from home or obtain and provide as needed 20. Consult pharmacy regarding effects of med's affecting mobility, cognition, and alternatives 21. Obtain physician order for PT if risk factors associated with mobility are present 22. Obtain physician order for OT as appropriate 23. Utilize diversional activities 24. Educate patient and patient pharmaceutical representative how to maintain a safe environment during visitationtimes (notify nurse prior to leaving bedside) 25. Consider appropriateness of medical or non-medical information specialist 26. Set up voiding schedule as appropriate [...] Description: INTERVENTIONS: 1. Encourage patient or legal pharmaceutical representative to report early pain and ask [...] per policy 9. Teach patient or legal pharmaceutical representative interventions for comforting Outcome: Progressing Note: [...] at the bedside 7. Instruct patient/ patient pharmaceutical representative about use of safety devices 8. Include patient/ patient pharmaceutical representative in decisions related to safety Outcome: [...] hygiene technique. 7. Identify and instruct patient/patient pharmaceutical representative in use of appropriate isolation precautionsfor identified infection/symptoms. 8. Provide and discuss with patient/patient pharmaceutical representative on educational MDRO sheet. 9. Encourage and monitor nutritional status daily and consult bag machine tender if indicated. 10. Implement neutropenic guidelines as needed. Outcome: Progressing Note: Evaluation of progress towards goal: Patient remains free from signs of infection at this time. Will continue to monitor. Problem: Knowledge Deficit Goal: Patient/patient pharmaceutical representative demonstrates understanding of disease process, treatment [...] Score of =/> 25 or indicated by [facility] Assessment Goal: Patient should be free from fall Description: Interventions: 1. Jones to environment 2. Hourly rounds addressing the [...] non-skid footwear 11. Teach patient and patient pharmaceutical representative to maintain environment for safety and [...] (cane, walker) within reach 19. Request patient pharmaceutical representative bring adaptive equipment/mobility aids from home or obtain and provide as needed 20. Consult pharmacy regarding effects of med's affecting mobility, cognition, and alternatives 21. Obtain physician order for PT if risk factors associated with mobility are present 22. Obtain physician order for OT as appropriate 23. Utilize diversional activities 24. Educate patient and patient pharmaceutical representative how to maintain a safe environment during visitationtimes (notify nurse prior to leaving bedside) 25. Consider appropriateness of medical or non-medical information specialist 26. Set up voiding schedule as appropriate [...] to see. Discharge Plan remains: Return to [facility]-will need precert. CN will continue to follow and is available should any further needs arise. - Manjinder Suresh RN 09/24/24 2:35 PM * PT/OT/MUNICIPAL ENGINEER - Rosario Orr CCC-MUNICIPAL ENGINEER - 09/24/2024 1:31 PM EDT Speech Therapy [...] strategies Medications: In applesauce/puree Referrals: Dysphagia therapy, Business Resiliency Manager Discharge Recommendations: (ongoing ST services) Pt educated [...] with h/o MS, who initially presented to [facility] 09/18 from her rehab facility with complaints of altered mental status. Per chart review patient was recently treated for rhabdomyolysis. 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 Pt was transferred to [facility] for neurosurgery consult. 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 Speech consulted post operatively to assess swallow function prior to diet initiation. Prognosis Services: Skilled MUNICIPAL ENGINEER services to address above deficits Prognosis/Potential: Good [...] Dysphagia Problem: Swallowing Dates: Start: 09/24/24 Disciplines: MUNICIPAL ENGINEER Goal: LTG: Patient will tolerate least restrictive diet recommended by MUNICIPAL ENGINEER without signs and symptoms of aspiration 90% of the time Dates: Start: 09/24/24 Expected End: 10/25/24 Disciplines: MUNICIPAL ENGINEER Goal: STG: Patient will complete safety strategies independently during PO intake 90% of the time Dates: Start: 09/24/24 Expected End: 10/25/24 Disciplines: MUNICIPAL ENGINEER Goal: STG: Patient will complete oral/ pharyngeal strengthening program with resistance with 90% accuracy with minimal cueing Dates: Start: 09/24/24 Expected End: 10/25/24 Disciplines: MUNICIPAL ENGINEER Goal: STG: Patient will tolerate therapeutic feeding trials of advanced textures with 90% accuracy with minimal cueing Dates: Start: 09/24/24 Expected End: 10/25/24 Disciplines: MUNICIPAL ENGINEER Template: ST - Rehab Speech Problem: Auditory Comprehension Dates: Start: 09/24/24 Disciplines: MUNICIPAL ENGINEER Goal: LTG: Patient will comprehend communication related to basic medical and social needs and utilize compensatory strategies to maintain safety in a functional living environment Dates: Start: 09/24/24 Expected End: 10/25/24 Disciplines: MUNICIPAL ENGINEER Goal: STG: Patient will answer complex yes/no questions with 90% accuracy with minimal cueing Dates: Start: 09/24/24 Expected End: 10/25/24 Disciplines: MUNICIPAL ENGINEER Goal: STG: Patient will complete 1-3 step commands with 90% accuracy with minimal cueing Dates: Start: 09/24/24 Expected End: 10/25/24 Disciplines: MUNICIPAL ENGINEER Goal: STG: Patient will complete simple, phrase level auditory comprehension tasks with 90% accuracy with minimal cueing Dates: Start: 09/24/24 Expected End: 10/25/24 Disciplines: MUNICIPAL ENGINEER Problem: Cognitive Linguistic Dates: Start: 09/24/24 Disciplines: MUNICIPAL ENGINEER Goal: LTG: Patient will display functional cognitive-linguistic skills to demonstrate appropriate communication and safety within daily activities in a functional living environment Dates: Start: 09/24/24 Expected End: 10/25/24 Disciplines: MUNICIPAL ENGINEER Goal: STG: Patient will demonstrate sustained attention by maintaining focus during a task for 10 minutes with minimal assistance Dates: Start: 09/24/24 Expected End: 10/25/24 Disciplines: MUNICIPAL ENGINEER Goal: STG: Patient will be appropriately oriented to person, place, time and situation with 90% accuracy with minimal cueing Dates: Start: 09/24/24 Expected End: 10/25/24 Disciplines: MUNICIPAL ENGINEER Goal: STG: Patient will describe/demonstrate/initiate use of 3 memory strategies with minimal cueing Dates: Start: 09/24/24 Expected End: 10/25/24 Disciplines: MUNICIPAL ENGINEER Problem: High Level Language Dates: Start: 09/24/24 Disciplines: MUNICIPAL ENGINEER Goal: LTG: Patient will demonstrate use of self-awareness, goal setting, planning, initiation, self-monitoring and problem solving during daily activities to improve safety and awareness in a functional living environment Dates: Start: 09/24/24 Expected End: 10/25/24 Disciplines: MUNICIPAL ENGINEER Goal: STG: Patient will demonstrate functional problem solving and safety awareness with 90% accuracy in daily living tasks in order to increase safe interactions with environment and decrease assistance from caregivers Dates: Start: 09/24/24 Expected End: 10/25/24 Disciplines: MUNICIPAL ENGINEER Problem: Speech Production Dates: Start: 09/24/24 Disciplines: MUNICIPAL ENGINEER Goal: LTG: Patient will develop functional and intelligible speech and utilize compensatory strategies through the use of adequate labial and lingual function, increased articulatory precision and speech prosody Dates: Start: 09/24/24 Expected End: 10/25/24 Disciplines: MUNICIPAL ENGINEER Goal: STG: Patient will use appropriate articulatory accuracy and speech rate when reading/speakingwith 90% accuracy with minimal cueing Dates: Start: 09/24/24 Expected End: 10/25/24 Disciplines: MUNICIPAL ENGINEER Goal: STG: Patient will complete rapid alternating verbal sequences (tongue twisters) with improvedarticulatory precision with 90% accuracy with minimal cueing Dates: Start: 09/24/24 Expected End: 10/25/24 Disciplines: MUNICIPAL ENGINEER Problem: Verbal Expression Dates: Start: 09/24/24 Disciplines: MUNICIPAL ENGINEER Goal: LTG: Patient will utilize compensatory strategies to communicate wants and needs effectively to different conversational partners, maintain safety and participate socially in a functional living environment Dates: Start: 09/24/24 Expected End: 10/25/24 Disciplines: MUNICIPAL ENGINEER Goal: STG: Patient will describe objects, pictures (salient features) with 90% accuracy with minimal cueing to improve word retrieval skills Dates: Start: 09/24/24 Expected End: 10/25/24 Disciplines: MUNICIPAL ENGINEER Goal: STG: Patient will respond to simple/complex open ended questions during activities of daily living with 90% accuracy with minimal cueing Dates: Start: 09/24/24 Expected End: 10/25/24 Disciplines: MUNICIPAL ENGINEER Goal: STG: Patient will complete simple to complex divergent and convergent naming tasks with 90% accuracy with minimal cueing to improve thought organization Dates: Start: 09/24/24 Expected End: 10/25/24 Disciplines: MUNICIPAL ENGINEER Speech Therapy Care Plan (Resolved) There are no resolved problems. Principal Problem: Altered mental status, unspecified altered mental status type Active Problems: Generalized anxiety disorder with panic attacks Hyperlipidemia, acquired Multiple sclerosis (CMS-HCC) LORENZO (obstructive sleep apnea) Primary hypertension Depression, unspecified Dysphagia, oropharyngeal phase * PT/OT/MUNICIPAL ENGINEER - NATANAEL Kyle - 09/24/2024 8:35 AM EDT Speech Therapy [...] swallow. Please place order. Prognosis Services: Skilled MUNICIPAL ENGINEER services to address above deficits Prognosis/Potential: Good [...] continue to follow along. Prognosis Services: Skilled MUNICIPAL ENGINEER services to address the above deficits Prognosis/Potential: [...] Dysphagia Problem: Swallowing Dates: Start: 09/24/24 Disciplines: MUNICIPAL ENGINEER Goal: LTG: Patient will tolerate least restrictive diet recommended by MUNICIPAL ENGINEER without signs and symptoms of aspiration 90% of the time Dates: Start: 09/24/24 Expected End: 10/25/24 Disciplines: MUNICIPAL ENGINEER Goal: STG: Patient will complete safety strategies independently during PO intake 90% of the time Dates: Start: 09/24/24 Expected End: 10/25/24 Disciplines: MUNICIPAL ENGINEER Goal: STG: Patient will complete oral/ pharyngeal strengthening program with resistance with 90% accuracy with minimal cueing Dates: Start: 09/24/24 Expected End: 10/25/24 Disciplines: MUNICIPAL ENGINEER Goal: STG: Patient will tolerate therapeutic feeding trials of advanced textures with 90% accuracy with minimal cueing Dates: Start: 09/24/24 Expected End: 10/25/24 Disciplines: MUNICIPAL ENGINEER Template: ST - Rehab Speech Problem: Auditory Comprehension Dates: Start: 09/24/24 Disciplines: MUNICIPAL ENGINEER Goal: LTG: Patient will comprehend communication related to basic medical and social needs and utilize compensatory strategies to maintain safety in a functional living environment Dates: Start: 09/24/24 Expected End: 10/25/24 Disciplines: MUNICIPAL ENGINEER Goal: STG: Patient will answer complex yes/no questions with 90% accuracy with minimal cueing Dates: Start: 09/24/24 Expected End: 10/25/24 Disciplines: MUNICIPAL ENGINEER Goal: STG: Patient will complete 1-3 step commands with 90% accuracy with minimal cueing Dates: Start: 09/24/24 Expected End: 10/25/24 Disciplines: MUNICIPAL ENGINEER Goal: STG: Patient will complete simple, phrase level auditory comprehension tasks with 90% accuracy with minimal cueing Dates: Start: 09/24/24 Expected End: 10/25/24 Disciplines: MUNICIPAL ENGINEER Problem: Cognitive Linguistic Dates: Start: 09/24/24 Disciplines: MUNICIPAL ENGINEER Goal: LTG: Patient will display functional cognitive-linguistic skills to demonstrate appropriate communication and safety within daily activities in a functional living environment Dates: Start: 09/24/24 Expected End: 10/25/24 Disciplines: MUNICIPAL ENGINEER Goal: STG: Patient will demonstrate sustained attention by maintaining focus during a task for 10 minutes with minimal assistance Dates: Start: 09/24/24 Expected End: 10/25/24 Disciplines: MUNICIPAL ENGINEER Goal: STG: Patient will be appropriately oriented to person, place, time and situation with 90% accuracy with minimal cueing Dates: Start: 09/24/24 Expected End: 10/25/24 Disciplines: MUNICIPAL ENGINEER Goal: STG: Patient will describe/demonstrate/initiate use of 3 memory strategies with minimal cueing Dates: Start: 09/24/24 Expected End: 10/25/24 Disciplines: MUNICIPAL ENGINEER Problem: High Level Language Dates: Start: 09/24/24 Disciplines: MUNICIPAL ENGINEER Goal: LTG: Patient will demonstrate use of self-awareness, goal setting, planning, initiation, self-monitoring and problem solving during daily activities to improve safety and awareness in a functional living environment Dates: Start: 09/24/24 Expected End: 10/25/24 Disciplines: MUNICIPAL ENGINEER Goal: STG: Patient will demonstrate functional problem solving and safety awareness with 90% accuracy in daily living tasks in order to increase safe interactions with environment and decrease assistance from caregivers Dates: Start: 09/24/24 Expected End: 10/25/24 Disciplines: MUNICIPAL ENGINEER Problem: Speech Production Dates: Start: 09/24/24 Disciplines: MUNICIPAL ENGINEER Goal: LTG: Patient will develop functional and intelligible speech and utilize compensatory strategies through the use of adequate labial and lingual function, increased articulatory precision and speech prosody Dates: Start: 09/24/24 Expected End: 10/25/24 Disciplines: MUNICIPAL ENGINEER Goal: STG: Patient will use appropriate articulatory accuracy and speech rate when reading/speakingwith 90% accuracy with minimal cueing Dates: Start: 09/24/24 Expected End: 10/25/24 Disciplines: MUNICIPAL ENGINEER Goal: STG: Patient will complete rapid alternating verbal sequences (tongue twisters) with improvedarticulatory precision with 90% accuracy with minimal cueing Dates: Start: 09/24/24 Expected End: 10/25/24 Disciplines: MUNICIPAL ENGINEER Problem: Verbal Expression Dates: Start: 09/24/24 Disciplines: MUNICIPAL ENGINEER Goal: LTG: Patient will utilize compensatory strategies to communicate wants and needs effectively to different conversational partners, maintain safety and participate socially in a functional living environment Dates: Start: 09/24/24 Expected End: 10/25/24 Disciplines: MUNICIPAL ENGINEER Goal: STG: Patient will describe objects, pictures (salient features) with 90% accuracy with minimal cueing to improve word retrieval skills Dates: Start: 09/24/24 Expected End: 10/25/24 Disciplines: MUNICIPAL ENGINEER Goal: STG: Patient will respond to simple/complex open ended questions during activities of daily living with 90% accuracy with minimal cueing Dates: Start: 09/24/24 Expected End: 10/25/24 Disciplines: MUNICIPAL ENGINEER Goal: STG: Patient will complete simple to complex divergent and convergent naming tasks with 90% accuracy with minimal cueing to improve thought organization Dates: Start: 09/24/24 Expected End: 10/25/24 Disciplines: MUNICIPAL ENGINEER Speech Therapy Care Plan (Resolved) There are [...] injury from restraints (Restraint for Interference with Multiple Resaw Operator) Description: INTERVENTIONS: 1. Determine that other, [...] Free from restraint(s) (Restraint for Interference with Multiple Resaw Operator) Description: INTERVENTIONS: 1. ONCE/SHIFT or MINIMUM [...] Description: INTERVENTIONS: 1. Encourage patient or legal pharmaceutical representative to report early pain and ask [...] per policy 9. Teach patient or legal pharmaceutical representative interventions for comforting Outcome: Progressing Note: [...] at the bedside 7. Instruct patient/ patient pharmaceutical representative about use of safety devices 8. Include patient/ patient pharmaceutical representative in decisions related to safety Outcome: [...] hygiene technique. 7. Identify and instruct patient/patient pharmaceutical representative in use of appropriate isolation precautionsfor identified infection/symptoms. 8. Provide and discuss with patient/patient pharmaceutical representative on educational MDRO sheet. 9. Encourage and monitor nutritional status daily and consult bag machine tender if indicated. 10. Implement neutropenic guidelines as needed. Outcome: Progressing Note: Evaluation of progress towards goal: Labs and vitals monitored as ordered. Medications administered as ordered. Patient remains free from infection at this time. Problem: Knowledge Deficit Goal: Patient/patient pharmaceutical representative demonstrates understanding of disease process, treatment [...] supplement as ordered 13. Collaborate with clinical bag machine tender 14. Include patient/ patient's pharmaceutical representative in decisions related to nutrition Outcome: [...] Score of =/> 25 or indicated by [facility] Assessment Goal: Patient should be free from fall Description: Interventions: 1. Jones to environment 2. Hourly rounds addressing the [...] non-skid footwear 11. Teach patient and patient pharmaceutical representative to maintain environment for safety and [...] (cane, walker) within reach 19. Request patient pharmaceutical representative bring adaptive equipment/mobility aids from home or obtain and provide as needed 20. Consult pharmacy regarding effects of med's affecting mobility, cognition, and alternatives 21. Obtain physician order for PT if risk factors associated with mobility are present 22. Obtain physician order for OT as appropriate 23. Utilize diversional activities 24. Educate patient and patient pharmaceutical representative how to maintain a safe environment during visitationtimes (notify nurse prior to leaving bedside) 25. Consider appropriateness of medical or non-medical information specialist 26. Set up voiding schedule as appropriate [...] injury from restraints (Restraint for Interference with Multiple Resaw Operator) Description: INTERVENTIONS: 1. Determine that other, [...] Free from restraint(s) (Restraint for Interference with Multiple Resaw Operator) Description: INTERVENTIONS: 1. ONCE/SHIFT or MINIMUM [...] fastened to the bed with Rivera head girls golf coach. Her cranial anatomy was registered to the [employer] software with good accuracy. Stealth probe was [...] replaced and fixed to the skull with Gold Bar mini screws and plates. The incision was [...] Espinal MD - Primary Assistants: None Staff: River Driver Primary: Javier Argueta RN River Driver Relief: Julia Lofton RN; Sherrie Leiva RN [...] Implant Name Type Inv. Item Serial No. Flow Trader Lot No. LRB No. Used Action PATCH DURA 3X3IN THK3.5MM CRNMXF DRMTRX-ONLAY + NPOR RGNRT RPL [id number] - [id number] Graft PATCH DURA 3X3IN THK3.5MM CRNMXF DRMTRX-ONLAY + NPOR RGNRT RPL [id number] JIM [employer]ANIOMAXILLOF[employer] [id number] Right 1 Implanted PLATE BN 12MM 2 HL LP BAR TAB UNV NEURO II CRNMXF TI NS 1.5 - [id number] Plate PLATE BN 12MM 2 HL LP BAR TAB UNV NEURO II CRNMXF TI NS 1.5 JIM [employer]OM[employer] Right 2 Implanted COVER BUR HL CRNFCL 10MMX.5MM LP TAB STRL LF DISP - [id number] Plate COVER BUR HL CRNFCL 10MMX.5MM LP TAB STRL LF DISP JIM [employer]OMAX[employer] Right 1 Implanted SCREW BN 4MM 1.5MM SLF DRL XPN CRNMXF STRL MUST ORDER IN MULTIPLES OF 5EA - [id number] Screw SCREW BN 4MM 1.5MM SLF DRL [...] time of surgery. * Query Response - Anjelica Venegas APRN-GEOTECHNICIAL PROPERTIES TECHNICIAN - 09/23/2024 10:02 AM EDT Query Response [...] Free from restraint(s) (Restraint for Interference with Multiple Resaw Operator) Description: INTERVENTIONS: 1. ONCE/SHIFT or MINIMUM [...] Description: INTERVENTIONS: 1. Encourage patient or legal pharmaceutical representative to report early pain and ask [...] per policy 9. Teach patient or legal pharmaceutical representative interventions for comforting Outcome: Progressing Note: [...] at the bedside 7. Instruct patient/ patient pharmaceutical representative about use of safety devices 8. Include patient/ patient pharmaceutical representative in decisions related to safety Outcome: [...] hygiene technique. 7. Identify and instruct patient/patient pharmaceutical representative in use of appropriate isolation precautionsfor identified infection/symptoms. 8. Provide and discuss with patient/patient pharmaceutical representative on educational MDRO sheet. 9. Encourage and monitor nutritional status daily and consult bag machine tender if indicated. 10. Implement neutropenic guidelines as needed. Outcome: Progressing Note: Evaluation of progress towards goal: Handwashing and standard precautions maintained. Patientremains free from infection through shift and has not shown any additional signs of infection at this time. Will continue to educate on infection prevention. Problem: Knowledge Deficit Goal: Patient/patient pharmaceutical representative demonstrates understanding of disease process, treatment [...] supplement as ordered 13. Collaborate with clinical bag machine tender 14. Include patient/ patient's pharmaceutical representative in decisions related to nutrition Outcome: [...] Score of =/> 25 or indicated by [facility] Assessment Goal: Patient should be free from fall Description: Interventions: 1. Jones to environment 2. Hourly rounds addressing the [...] non-skid footwear 11. Teach patient and patient pharmaceutical representative to maintain environment for safety and [...] (cane, walker) within reach 19. Request patient pharmaceutical representative bring adaptive equipment/mobility aids from home or obtain and provide as needed 20. Consult pharmacy regarding effects of med's affecting mobility, cognition, and alternatives 21. Obtain physician order for PT if risk factors associated with mobility are present 22. Obtain physician order for OT as appropriate 23. Utilize diversional activities 24. Educate patient and patient pharmaceutical representative how to maintain a safe environment during visitationtimes (notify nurse prior to leaving bedside) 25. Consider appropriateness of medical or non-medical information specialist 26. Set up voiding schedule as appropriate [...] injury from restraints (Restraint for Interference with Multiple Resaw Operator) Description: INTERVENTIONS: 1. Determine that other, [...] 09/23, alexis Discharge Plan remains: return to [facility]. [facility] is ready to acceptpatient at discharge. Patient [...] Description: INTERVENTIONS: 1. Encourage patient or legal pharmaceutical representative to report early pain and ask [...] per policy 9. Teach patient or legal pharmaceutical representative interventions for comforting Outcome: Progressing Note: Evaluation of progress towards goal: Narrative Writer assessed pt pain in the beginning and throughout shift. Pt stated a tolerable pain goal was zero. Narrative Writer medicated pt pain per order. Will continue [...] at the bedside 7. Instruct patient/ patient pharmaceutical representative about use of safety devices 8. Include patient/ patient pharmaceutical representative in decisions related to safety Outcome: [...] hygiene technique. 7. Identify and instruct patient/patient pharmaceutical representative in use of appropriate isolation precautionsfor identified infection/symptoms. 8. Provide and discuss with patient/patient pharmaceutical representative on educational MDRO sheet. 9. Encourage and monitor nutritional status daily and consult bag machine tender if indicated. 10. Implement neutropenic guidelines as needed. Outcome: Progressing Note: Evaluation of progress towards goal: Narrative Writer assessed pt risk for infection in the beginning and throughout shift. Pt remains afebrile. Will continue to monitor. Problem: Knowledge Deficit Goal: Patient/patient pharmaceutical representative demonstrates understanding of disease process, treatment plan,medications, and discharge instructions Description: INTERVENTIONS 1. Complete learning assessment and assess knowledge base 2. Provide teaching at level of understanding 3. Provide teaching via preferred learning method(s) Outcome: Progressing Note: Evaluation of progress towards goal: Narrative Writer educated pt on admission disease, medications, treatment, [...] towards goal: Patient's skin integrity is maintained, publicity writer assessed at beginning of shift and [...] supplement as ordered 13. Collaborate with clinical bag machine tender 14. Include patient/ patient's pharmaceutical representative in decisions related to nutrition Outcome: [...] goal: Patient's perineal skin integrity is maintained, publicity writer assessed at beginning of shift and throughout, no changes noted, alexis cathter in place, fallon care provided. Problem: Moderate - High Risk Fall Score Description: García Fall Score of =/> 25 or indicated by [facility] Assessment Goal: Patient should be free from fall Description: Interventions: 1. Jones to environment 2. Hourly rounds addressing the [...] non-skid footwear 11. Teach patient and patient pharmaceutical representative to maintain environment for safety and [...] (cane, walker) within reach 19. Request patient pharmaceutical representative bring adaptive equipment/mobility aids from home or obtain and provide as needed 20. Consult pharmacy regarding effects of med's affecting mobility, cognition, and alternatives 21. Obtain physician order for PT if risk factors associated with mobility are present 22. Obtain physician order for OT as appropriate 23. Utilize diversional activities 24. Educate patient and patient pharmaceutical representative how to maintain a safe environment during visitationtimes (notify nurse prior to leaving bedside) 25. Consider appropriateness of medical or non-medical information specialist 26. Set up voiding schedule as appropriate (every 2 hours) Outcome: Progressing Note: Evaluation of progress towards goal: Narrative Writer assessed pt fall precautions in the beginning [...] injury from restraints (Restraint for Interference with Multiple Resaw Operator) Description: INTERVENTIONS: 1. Determine that other, [...] injury from restrains, restrains remain in place, publicity writer checks pulses, range of motion, offers hygiene, nutrition and repositioning every two hours. Goal: Free from restraint(s) (Restraint for Interference with Multiple Resaw Operator) Description: INTERVENTIONS: 1. ONCE/SHIFT or MINIMUM [...] time, order remains vaild for current shift, publicity writer performs necessary checks, plan of care ongoing. * Plan of Care - Reanna Ferguson RN - 09/22/2024 2:44 AM EDT Problem: Pain Goal: Patient goal is pain score less than 4, able to rest, and participant in treatment plan as appropriate Description: INTERVENTIONS: 1. Encourage patient or legal pharmaceutical representative to report early pain and ask [...] per policy 9. Teach patient or legal pharmaceutical representative interventions for comforting Outcome: Progressing Note: [...] at the bedside 7. Instruct patient/ patient pharmaceutical representative about use of safety devices 8. Include patient/ patient pharmaceutical representative in decisions related to safety Outcome: [...] hygiene technique. 7. Identify and instruct patient/patient pharmaceutical representative in use of appropriate isolation precautionsfor identified infection/symptoms. 8. Provide and discuss with patient/patient pharmaceutical representative on educational MDRO sheet. 9. Encourage and monitor nutritional status daily and consult bag machine tender if indicated. 10. Implement neutropenic guidelines as needed. Outcome: Progressing Note: Evaluation of progress towards goal: Handwashing and standard precautions maintained. Patientremains free from infection through shift and has not shown any additional signs of infection at this time. Will continue to educate on infection prevention. Problem: Knowledge Deficit Goal: Patient/patient pharmaceutical representative demonstrates understanding of disease process, treatment [...] supplement as ordered 13. Collaborate with clinical bag machine tender 14. Include patient/ patient's pharmaceutical representative in decisions related to nutrition Outcome: [...] Score of =/> 25 or indicated by [facility] Rehab Assessment Goal: Patient should be free from fall Description: Interventions: 1. Jones to environment 2. Hourly rounds addressing the [...] non-skid footwear 11. Teach patient and patient pharmaceutical representative to maintain environment for safety and [...] (cane, walker) within reach 19. Request patient pharmaceutical representative bring adaptive equipment/mobility aids from home or obtain and provide as needed 20. Consult pharmacy regarding effects of med's affecting mobility, cognition, and alternatives 21. Obtain physician order for PT if risk factors associated with mobility are present 22. Obtain physician order for OT as appropriate 23. Utilize diversional activities 24. Educate patient and patient pharmaceutical representative how to maintain a safe environment during visitationtimes (notify nurse prior to leaving bedside) 25. Consider appropriateness of medical or non-medical information specialist 26. Set up voiding schedule as appropriate [...] injury from restraints (Restraint for Interference with Multiple Resaw Operator) Description: INTERVENTIONS: 1. Determine that other, [...] EDT DISCHARGE PLANNING NOTE Referral sent to. [facility] (P#: ; F#: ) * Discharge Planning Note - RAMIREZ Cotto - 09/21/2024 3:15 PM EDT Images from the original note were not included. DISCHARGE PLANNING NOTE Narrative Writer left messages for children, introduced self, and [...] Medical History: Diagnosis Date MS (multiple sclerosis) ([facility]) 2012 Prior to admission patient was a skilled patient at [facility] and family is interested in patient returning at discharge. Social work task [facility] to send referral to [facility]. Patient will require precert for placement. PCP: JACQUELINE LUNA Pharmacy:[facility] PCP and pharmacy confirmed with patient. JACQUELINE [...] PM * Plan of Care - Cheryl Migule RN - 09/21/2024 10:48 AM EDT Problem: Pain Goal: Patient goal is pain score less than 4, able to rest, and participant in treatment plan as appropriate Description: INTERVENTIONS: 1. Encourage patient or legal pharmaceutical representative to report early pain and ask [...] per policy 9. Teach patient or legal pharmaceutical representative interventions for comforting Outcome: Progressing Note: [...] hygiene technique. 7. Identify and instruct patient/patient pharmaceutical representative in use of appropriate isolation precautionsfor identified infection/symptoms. 8. Provide and discuss with patient/patient pharmaceutical representative on educational MDRO sheet. 9. Encourage and monitor nutritional status daily and consult bag machine tender if indicated. 10. Implement neutropenic guidelines as [...] injury from restraints (Restraint for Interference with Multiple Resaw Operator) Description: INTERVENTIONS: 1. Determine that other, [...] AM EDT Problem: Knowledge Deficit Goal: Patient/patient pharmaceutical representative demonstrates understanding of disease process, treatment [...] Free from restraint(s) (Restraint for Interference with Multiple Resaw Operator) Description: INTERVENTIONS: 1. ONCE/SHIFT or MINIMUM [...] Description: INTERVENTIONS: 1. Encourage patient or legal pharmaceutical representative to report early pain and ask [...] per policy 9. Teach patient or legal pharmaceutical representative interventions for comforting Outcome: Progressing Note: [...] at the bedside 7. Instruct patient/ patient pharmaceutical representative about use of safety devices 8. Include patient/ patient pharmaceutical representative in decisions related to safety Outcome: [...] hygiene technique. 7. Identify and instruct patient/patient pharmaceutical representative in use of appropriate isolation precautionsfor identified infection/symptoms. 8. Provide and discuss with patient/patient pharmaceutical representative on educational MDRO sheet. 9. Encourage and monitor nutritional status daily and consult bag machine tender if indicated. 10. Implement neutropenic guidelines as [...] injury from restraints (Restraint for Interference with Multiple Resaw Operator) Description: INTERVENTIONS: 1. Determine that other, [...] has been communicated to KIRK Venegas with [facility] Hospitalist. Critical Care will sign [...] Description: INTERVENTIONS: 1. Encourage patient or legal pharmaceutical representative to report early pain and ask [...] per policy 9. Teach patient or legal pharmaceutical representative interventions for comforting Outcome: Progressing Note: [...] hygiene technique. 7. Identify and instruct patient/patient pharmaceutical representative in use of appropriate isolation precautionsfor identified infection/symptoms. 8. Provide and discuss with patient/patient pharmaceutical representative on educational MDRO sheet. 9. Encourage and monitor nutritional status daily and consult bag machine tender if indicated. 10. Implement neutropenic guidelines as needed. Outcome: Progressing Note: Evaluation of progress towards goal: Pt afebrile, vss, will continue to monitor. Problem: Knowledge Deficit Goal: Patient/patient pharmaceutical representative demonstrates understanding of disease process, treatment [...] injury from restraints (Restraint for Interference with Multiple Resaw Operator) Description: INTERVENTIONS: 1. Determine that other, [...] AM EDT Problem: Knowledge Deficit Goal: Patient/patient pharmaceutical representative demonstrates understanding of disease process, treatment [...] injury from restraints (Restraint for Interference with Multiple Resaw Operator) Description: INTERVENTIONS: 1. Determine that other, [...] Free from restraint(s) (Restraint for Interference with Multiple Resaw Operator) Description: INTERVENTIONS: 1. ONCE/SHIFT or MINIMUM [...] Description: INTERVENTIONS: 1. Encourage patient or legal pharmaceutical representative to report early pain and ask [...] per policy 9. Teach patient or legal pharmaceutical representative interventions for comforting Outcome: Progressing Note: [...] at the bedside 7. Instruct patient/ patient pharmaceutical representative about use of safety devices 8. Include patient/ patient pharmaceutical representative in decisions related to safety Outcome: [...] hygiene technique. 7. Identify and instruct patient/patient pharmaceutical representative in use of appropriate isolation precautionsfor identified infection/symptoms. 8. Provide and discuss with patient/patient pharmaceutical representative on educational MDRO sheet. 9. Encourage and monitor nutritional status daily and consult bag machine tender if indicated. 10. Implement neutropenic guidelines as [...] try again later. Enid Eaton Jr., MFrida. [facility] [phone] * Plan of Care - Asim Hinojosa RN - 09/19/2024 7:41 AM EDT Problem: Pain Goal: Patient goal is pain score less than 4, able to rest, and participant in treatment plan as appropriate Description: INTERVENTIONS: 1. Encourage patient or legal pharmaceutical representative to report early pain and ask [...] per policy 9. Teach patient or legal pharmaceutical representative interventions for comforting 09/19/2024740 by MOE [...] at the bedside 7. Instruct patient/ patient pharmaceutical representative about use of safety devices 8. Include patient/ patient pharmaceutical representative in decisions related to safety 09/19/2024740 [...] hygiene technique. 7. Identify and instruct patient/patient pharmaceutical representative in use of appropriate isolation precautionsfor identified infection/symptoms. 8. Provide and discuss with patient/patient pharmaceutical representative on educational MDRO sheet. 9. Encourage and monitor nutritional status daily and consult bag machine tender if indicated. 10. Implement neutropenic guidelines as needed. 09/19/2024740 by MOE Dailey Outcome: Progressing Note: Evaluation of progress towards goal: No active infections 09/19/2024738 by MOE Dailey Outcome: Progressing Note: Evaluation of progress towards goal: No active infections Problem: Knowledge Deficit Goal: Patient/patient pharmaceutical representative demonstrates understanding of disease process, treatment [...] supplement as ordered 13. Collaborate with clinical bag machine tender 14. Include patient/ patient's pharmaceutical representative in decisions related to nutrition 09/19/2024740 [...] Score of =/> 25 or indicated by [facility] Rehab Assessment Goal: Patient should be free from fall Description: Interventions: 1. Jones to environment 2. Hourly rounds addressing the [...] non-skid footwear 11. Teach patient and patient pharmaceutical representative to maintain environment for safety and [...] (cane, walker) within reach 19. Request patient pharmaceutical representative bring adaptive equipment/mobility aids from home or obtain and provide as needed 20. Consult pharmacy regarding effects of med's affecting mobility, cognition, and alternatives 21. Obtain physician order for PT if risk factors associated with mobility are present 22. Obtain physician order for OT as appropriate 23. Utilize diversional activities 24. Educate patient and patient pharmaceutical representative how to maintain a safe environment during visitationtimes (notify nurse prior to leaving bedside) 25. Consider appropriateness of medical or non-medical information specialist 26. Set up voiding schedule as appropriate (every 2 hours) 09/19/2024 0741 by MOE Dailey Outcome: Progressing [...] AM EDT Problem: Knowledge Deficit Goal: Patient/patient pharmaceutical representative demonstrates understanding of disease process, treatment [...] Description: INTERVENTIONS: 1. Encourage patient or legal pharmaceutical representative to report early pain and ask [...] per policy 9. Teach patient or legal pharmaceutical representative interventions for comforting Outcome: Progressing Note: [...] at the bedside 7. Instruct patient/ patient pharmaceutical representative about use of safety devices 8. Include patient/ patient pharmaceutical representative in decisions related to safety Outcome: [...] hygiene technique. 7. Identify and instruct patient/patient pharmaceutical representative in use of appropriate isolation precautionsfor identified infection/symptoms. 8. Provide and discuss with patient/patient pharmaceutical representative on educational MDRO sheet. 9. Encourage and monitor nutritional status daily and consult bag machine tender if indicated. 10. Implement neutropenic guidelines as needed. Outcome: Progressing Note: Evaluation of progress towards goal: pt will show no signs or symptoms of infection prior to discharge. Any unneccessary invasive lines and tubes will be removed if not medically necessary to decrease infection risk. [facility] Hospital course Narrative* Julio Fernandez MD - 09/28/2024 5:25 PM EDT Images from the original note were not included. [facility] INTERNAL MEDICINE [facility] - GEN 9 ACUTE [address] [facility] [id number] Hospital Medicine Discharge Summary Patient: Anupama Vasquez Date of : 1970 Room: A938/01 Encounter date: 09/28/24 Hospital Day: 11 DATE OF ADMISSION: 09/18/2024 DATE OF DISCHARGE:09/28/2024 DISCHARGE DIAGNOSES Principal Problem: Altered mental status, unspecified altered mental status type Active Problems: Generalized anxiety disorder with panic attacks Hyperlipidemia, acquired Multiple sclerosis ([facility]) LORENZO (obstructive sleep apnea) Primary hypertension Depression, unspecified Dysphagia, oropharyngeal phase [facility] Card[facility] Urology Neurosurgery Nephrology PCP: FRED GRACIA, STUCCO APPLICATOR-GEOTECHNICIAL PROPERTIES TECHNICIAN PROCEDURES Craniotomy HOSPITAL COURSE SUMMARY Patient's past medical history significant for MS, initially presented to [facility] from her rehab facility with complaints of altered mental status. Recently treated for rhabdomyolysis. 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 She was transferred to [facility] under Neurosurgery to the ICU. Right [...] EKG completed Echocardiogram showing preserved LVEF with akeq-bx-bbnbeity mitral stenosis Buttock wound Previously following with [...] Brain CT from September 18 outside facility [place] PROCEDURE: Multiplanar multisequence images performed through the [...] for surgical planning. I favor a primary CRAFT WORKER neoplasm such as a glioblastoma or astrocytoma. [...] on 09/19/2024 6:46 AM DISCHARGE INSTRUCTION Disposition: [facility] facility Condition: Stable Activity: activity as tolerated Diet: Adult diet Level 5 Minced and Moist diet; Level 2 Mildly Thick; No straws Adult nutrition supplements Follow up: FRED GRACIA, STUCCO APPLICATOR-GEOTECHNICIAL PROPERTIES TECHNICIAN within 7-14 days. Neurosurgery, Urology Labs/Imaging/Pathology: Discharge [...] this patient. JACQUELINE AYALA 09/28/2024 5:25 PM [facility] Physicians [facility] Internal Medicine 7AM-7PM & 7PM-7AM: EpicChat or page through On-Call Finder. JACQUELINE Ayala 09/28/24 6282 Attending Addendum: I Dr Julio Fernandez, personally [...] the plan as noted. documented in [facility]Mer[facility] History of Present illness Narrative* Skye Lara MD - 09/27/2024 4:31 PM EDT Images from the original note were not included. [facility] INTERNAL MEDICINE [facility] - GEN 9 ACUTE [address] [facility] [address] Hospital Medicine Progress Note Patient: Anupama Vasquez Date of : 1970 Room: [place] [address] PCP: JACQUELINE LUNA Admission date: 09/18/2024 11:59 [...] EKG completed Echocardiogram showing preserved LVEF with ivmc-js-tfuvuthr mitral stenosis Maintain cardiac monitoring Buttock wound [...] MD 09/27/2024 4:31 PM [facility] [place] [facility] [...] you, Arabella Burt RN Rapid Response: [facility] * Rivera Valverde RN - 09/26/2024 7:04 [...] you, Russel Valverde RN Rapid Response: [facility] * Skye Lara MD - 09/26/2024 5:01 PM EDT Images from the original note were not included. [facility] - GEN 9 ACUTE [address] [facility] [facility] [address] [facility] Medicine Progress Note Patient: Anupama Vasquez Date of : 1970 Room: [place] [address] PCP: FRED GRACIA APRN-GEOTECHNICIAL PROPERTIES TECHNICIAN Admission date: 09/18/2024 11:59 PM Encounter date: [...] EKG completed Echocardiogram showing preserved LVEF with pzgv-ab-mlskppux mitral stenosis Maintain cardiac monitoring Buttock wound [...] Neurosurgery Skye Lara MD 09/26/2024 5:01 PM [facility] Internal Medicine 7AM-7PM & 7PM-7AM: EpicChat or page through On-Call Finder. * Laura Gore APRN-GEOTECHNICIAL PROPERTIES TECHNICIAN - 09/26/2024 2:28 PM EDT Images from the original note were not included. [facility] [address] [place] [address], [address] [place] [address] * NEUROSURGERY DAILY PROGRESS NOTE DATE:09/26/2024 PATIENT'S [...] call with questions or concerns. Laura Gore APRN-[facility] Neurosurgery [facility] Patient Touch 09/26/24 2:31 PM To find out which DIANE is on for the day please go to ON-Call Finder in [employer] or [employer] and use log in Captimo and search for PTH Neurosurgery JACQUELINE Roth 09/26/24 1456 * Arabella Burt RN - 09/26/2024 10:30 [...] you, Arabella Burt RN Rapid Response: [facility] * DEISY Leroy - 09/25/2024 11:48 AM EDT NUTRITION ADULT FOLLOW UP NUTRITION ASSESSMENT: Patient History: Brief Clinical Summary: Labs:past medical history significant for MS, who initially presented to [facility] from [facility] facility with complaints of altered mental [...] 22 08/29/2024 Lab Results Component Value Date [id number] 09/19/2024 Lab Results Component Value Date [...] 4 mg intravenous Q6H FELTON Chip Zarate APRN-GEOTECHNICIAL PROPERTIES TECHNICIAN 4 mg at09/25/24 0535 dextrose (GLUTOSE) 40 % gel 15 g 15 g oral PRN MARCELLE Spencer dextrose 2.5 % in water, 1,000 mL infusion 50-150 mL/hr intravenous Continuous Steffanie Lozano APRN-GEOTECHNICIAL PROPERTIES TECHNICIAN Stopped at 09/22/24 0745 dextrose 50 % [...] PRN Jair Espinal MD 10 mg at 05/07/25 2153 levETIRAcetam (KEPPRA) IVPB 500 mg/100 mL [...] oral Nightly Jair Espinal MD2 tablet at 09/24/244 sodium phosphate 20 mmol in sodium chloride 0.9 % 250 mL IVPB 20 mmol intravenous PRN JACQUELINE Hughes Or sodium phosphate 20 mmol in sodium chloride 0.9 % 100 mL IVPB 20 mmol intravenous PRN JACQUELINE Hughes Or sod phos di, mono-K phos mono (K-PHOS NEUTRAL) 250 mg tablet 2 tablet 2 tablet oral PRN Steffanie Lozano APRN-GEOTECHNICIAL PROPERTIES TECHNICIAN sodium chloride 0.9 % infusion 3 mL/hr intra-arterial Continuous Jair Espinal MD 3 mL/hr at 09/25/24 07 3 mL/hr at 09/25/24 07 Nutrition Focused Physical Findings one stool today 1770ml UO yesterday Skin (per nursing flow sheets): Skin Color: [place] (09/25/24 08) Skin Temp: Warm; Dry (09/25/24799) Wound (per nursing flow sheets): Wound 09/23/24 Incision Head Right-Site Assessment: Unable to assess (09/25/24 08) Wound 09/19/24 Skin Tear Thigh Anterior;Left-Site Assessment: Excoriated (09/25/24 0400) Wound 09/19/24 Pressure Injury Buttocks Left-Site Assessment: Clean; Dry; Intact (09/25/24 08) Gastrointestinal (per nursing flow sheets): Abdomen Assessment: Soft (09/25/24799) Last BM Date: 09/25/24 (09/25/24899) Passing Flatus: Yes (09/25/24799) RUQ Bowel Sounds: Present (09/25/24799) LUQ Bowel Sounds: Present (09/25/24799) RLQ Bowel Sounds: Present (09/25/24799) LLQ Bowel Sounds: Present (09/25/24799) GI Symptoms: None (09/25/24 08) Edema (per [...] oz) Admit Weight: 119.4kg (Bed Scale, 09/19/24) [place] Body Weight: 61.4kg Weight Changes: 8.5kg loss/3 months (7%), stable inpatient +/- 2kg Current Body Mass Index: Body mass index is 41.7 kg/m . Comparative Standards: Estimated Energy Needs: 8916-4429 kcals daily. Method and weight used: 28-32 kcal/kg IBW Estimated Protein Needs: 74-123 grams daily. Method and weight used: 1.2-2g protein/kg IBW Estimated Fluid Needs: 9150-6128 ml daily. Method weight used: 28-32 ml/kg IBW Comments: general needs Malnutrition Status: Malnutrition Present: need more information NUTRITION DIAGNOSIS: Clinical Diagnosis: Swallowing difficulty (NC 1.1) Ongoing NUTRITION INTERVENTIONS: Meals & snacks: will add a magic cup to each tray, 290kcal and 9g protein per serving. GOAL(S): meet estimated protein/kcal needs NUTRITION MONITORING AND EVALUATION: po/supplement tolerance, weight/lab trends, POC Nikki Saez R.D,L.D. Clinical dietitian Patient Touch extension:[phone] Direct Dial phone number: [phone] 09/25/24 12:04 PM * Skye Lara MD - 09/25/2024 11:06 AM EDT Images from the original note were not included. [facility] INTERNAL MEDIC[facility] - GEN 8 ICU [address] [facility] [address] Hospital Medicine Progress Note Patient: Anupama Vasquez Date of : 1970 Room: [place] [address] PCP: JACQUELINE LUNA Admission date: 09/18/2024 11:59 [...] EKG completed Echocardiogram showing preserved LVEF with cxzb-dr-iednhkuj mitral stenosis Maintain cardiac monitoring Buttock wound [...] per Neurosurgery JACQUELINE Hamilton 09/25/2024 11:06 AM [facility] Paulo [facility] Internal Medicine 7AM-7PM & 7PM-7AM: [...] from the original note were not included. [facility] [address] [place] [address], [address] [place] [address] * NEUROSURGERY DAILY PROGRESS NOTE DATE:09/25/2024 PATIENT'S [...] Right temporal glioma s/p resection PLAN - MUNICIPAL ENGINEER evaluated yesterday. VSS today. - Continue serial [...] Edward- [facility] Neuro[facility] Please contact via InfoDif first then can utilize Patient touch/VoceraEdge if needed 09/25/24 7:08 AM To find out which DIANE is on for the day please go to [employer] and use log in Captimo and search for PTH Neurosurgery (DIANE and Phone Number is listed) JACQUELINE Vazquez 09/25/24 1306 * Margie Melissa MD - 09/25/2024 5:45 [...] -- 101 25 94 % -- -- 09/24/2440 -- -- 93 24 95 % -- -- 09/24/24 0835 -- -- 91 21 95 % -- -- 09/24/2430 -- -- 92 23 95 % -- [...] Units 09/25/24 0415 09/24/24 0331 09/23/24 0701 WBC x10E9/L 23.8* 26.5* [...] This note was completed using a voice tank worker system. Every effort was made to ensure accuracy. However, inadvertent computerized tank worker errors may be present. * Skye Lara MD - 09/24/2024 10:11 AM EDT Images from the original note were not included. [facility] INTERNAL MED[facility] - GEN ICU [address] [facility] [address] Hospital Medicine Progress Note Patient: Anupama Vasquez Date of : 1970 Room: [place] [address] PCP: FRED GRACIA APRN-GEOTECHNICIAL PROPERTIES TECHNICIAN Admission date: 09/18/2024 11:59 PM Encounter date: [...] today as patient is more awake Arrhythmia [facility] signed off- given preoperative clearance EKG completed Echocardiogram showing preserved LVEF with njgy-hr-kmjfgnmj mitral stenosis Maintain cardiac monitoring Buttock wound [...] JACQUELINE Hamilton 09/24/2024 10:11 AM [facility] 7AM-7PM & 7PM-7AM: EpicChat or page through On-Call Finder. JACQUELINE Hamilton 09/24/24 1832 I, Syke Lara MD, personally performed the face to [...] 115.3 kg (254 lb 3.1 oz) 09/23/24 164 -- 36.3 C (97.4 F) Oral 79 [...] neurosurgery operative report reviewed. Impressions: 1. Nitish [place] Status post 09/23/2024 craniotomy excision right temporal glioma Dr. Espinal for Right temporal brain mass with shift with very high volume urinary retention 1.5 L with the acute kidneyinjury creatinine 15.68 improved with Alexis catheter with mild bilateral hydronephrosis ultrasound 09/19/2024 2. By radiology report concern for 4 mm nonobstructing right renal stone retroperitoneal ejitysvfyd85/03/2025; no stone definitively CT 09/20/2024 Recommendations: 1. As above. Dr. Gunn taking over as hospitalists for our group starting tomorrow. Likely benefit long run from follow up at the [facility] office. . Thank you very much. I appreciate being asked to help with this patient's care. Enid Eaton Jr., M.D. [facility] [phone] * Chip Zarate APRN-GEOTECHNICIAL PROPERTIES TECHNICIAN - 09/24/2024 6:50 AM EDT Images from the original note were not included. [facility] Neurosurgery Neuro[facility]iences [facility] [address] [place] [address], [address] [place] [address] * NEUROSURGERY DAILY PROGRESS NOTE DATE:09/24/2024 PATIENT'S [...] Edward- [facility] Please contact via InfoDif first then can utilize Patient touch/VoceraEdge if needed 09/24/24 6:54 AM To find out which DIANE is on for the day please go to [employer] and use log in Captimo and search for PTH Neurosurgery (DIANE and Phone Number is listed) JACQUELINE Vazquez 09/24/241946 * DEISY Haines - 09/23/2024 12:05 PM EDT NUTRITION ADULT FOLLOW UP NUTRITION ASSESSMENT: Patient History: Brief Clinical Summary: past medical history significant for MS, who initially presented to [facility] from her rehab facility with complaints [...] from last 3 days Lab Units 09/23/24 0709/22/2461309/21/24 0230 PHOSPHORUS mg/dL 3.0 3.3 2.7 CALCIUM, [...] 22 08/29/2024 Lab Results Component Value Date [id number] 517 09/19/2024 Lab Results Component Value Date [...] mg 4 mg intravenous Q6H FELTON Zarate APRN-GEOTECHNICIAL PROPERTIES TECHNICIAN 4 mg at09/23/24 0621 dextrose (GLUTOSE) 40 [...] nasogastric Nightly JACQUELINE Hamilton 15 mg at 09/22/24 2124 polyethylene glycol [...] tablet 2 tablet oral PRN Steffanie Lozano, STUCCO APPLICATOR-GEOTECHNICIAL PROPERTIES TECHNICIAN Nutrition Focused Physical Findings +NG, mentation improving, BM 09/22 Skin (per nursing flow sheets): Skin Color: [place] (09/22/241939) Skin Temp: Dry; Cool (09/22/241939) Wound [...] midnight Question: Diet Type: Answer: NPO 09/21/24 1600 Diet Intakes: NPO start 09/18 Inpatient Nutrition [...] oz) Admit Weight: 119.4kg (Bed Scale, 09/19/24) [place] Body Weight: 61.4kg Weight Changes: 8.5kg loss/3 months (7%), stable inpatient +/- 2kg Current Body Mass Index: Body mass index is 41.7 kg/m . Comparative Standards: Estimated Energy Needs: 5671-9985 kcals daily. Method and weight used: 28-32 kcal/kg IBW Estimated Protein Needs: 74-123 grams daily. Method and weight used: 1.2-2g protein/kg IBW Estimated Fluid Needs: 5764-8794 ml daily. Method weight used: 28-32 ml/kg [...] from last 7 days Lab Units 09/23/24 0709/22/2461309/21/24 0230 WBC x10E9/L 15.1* 13.7* 12.2* HEMOGLOBIN g/dL 12.3 12.3 11.0* HEMATOCRIT % 37.3 38.0 33.6* PLATELETS X10E9/L 167 167 183 Results from last 7 days Lab Units 09/23/24 0709/22/24 0609/21/24 0230 MAGNESIUM mg/dL 1.8 1.9 1.8 Lab [...] retention Right temporal 4.1cm brain mass with ecsvb-qf-yecq 60 mm shift with surrounding edema from September of 2024 Multiple sclerosis Left carpal tunnel release Left shoulder arthroscopy KEYANNA PERRIN MD [facility] ANY QUESTIONS FEEL FREE TO CALL: 1. OFFICE [phone] 2. ANSWERING SERVICE:[phone] YOU CAN CONTACT ME THROUGH [employer] SECURE CHAT DURING THE DAYTIME HOURS, IF [...] completed yesterday with preserved LVEF. Did have dkaa-bt-wnguorof mitral stenosis with a mean gradient of [...] This note was completed using a voice tank worker system. Every effort was made to ensure accuracy. However, inadvertent computerized tank worker errors may be present. * Skey Lara MD - 09/23/2024 10:00 AM EDT Images from the original note were not included. [facility] INTERNAL MEDICINE [facility] - GEN 9 ACUTE [address] [facility] [address] Hospital Medicine Progress Note Patient: Anupama Vasquez Date of : 1970 Room: [place] [address] PCP: JACQUELINE LUNA Admission date: 09/18/2024 11:59 [...] with panic attacks Hyperlipidemia, acquired Multiple sclerosis ([facility]) LORENZO (obstructive sleep apnea) Primary hypertension [...] EKG completed Echocardiogram showing preserved LVEF with noqb-xw-aqnqtloq mitral stenosis Maintain cardiac monitoring Buttock wound [...] neurosurgery. JACQUELINE Hamilton 09/23/2024 10:00 AM [facility] Internal Medicine 7AM-7PM & 7PM-7AM: EpicChat or page through On-Call Finder. JACQUELINE Hamilton 09/23/24 8877 I, Skye Lara MD, personally performed the face to face diagnostic evaluation on this patient. I have reviewed the DIANE's History, Exam, and MDM and agree with the assessment and plan as written. * Mynor Vargas [facility] - 09/23/2024 8:40 AM EDT [facility] Department of Pharmacy Pharmacy-Physician Communication Anupama Vasquez ( ) qualifies for stress ulcer prophylaxis discontinuation per [facility] Policy. Famotidine IV has been selected [...] you, Kenya Pastrana RN Rapid Response: [facility] * Keyanna Perrin MD - 09/22/2024 4:01 [...] retention Right temporal 4.1cm brain mass with cwstw-hi-ybjw 60 mm shift with surrounding edema from September of 2024 Multiple sclerosis Left carpal tunnel release Left shoulder arthroscopy KEYANNA PERRIN MD [facility] ANY QUESTIONS FEEL FREE TO CALL: 1. OFFICE [phone] 2. ANSWERING SERVICE:[phone] YOU CAN CONTACT ME THROUGH [employer] SECURE CHAT DURING THE DAYTIME HOURS, IF [...] original note were not included. [facility] INTERNAL MEDICINE [facility] - GEN 9 ACUTE [address] [facility] [address] Hospital Medicine Progress Note Patient: Anupama Vasquez Date of : 1970 Room: [place] [address] PCP: FRED GRACIA APRN-RUBINA Admission date: 09/18/2024 [...] Hamilton 09/22/2024 10:40 AM [facility] Internal Medicine 7AM-7PM & [...] you, He Gutierrez RN Rapid Response: [facility] * Enid Eaton Jr., MD - 09/22/2024 [...] 118.7 kg (261 lb 11 oz) 09/21/24 231 121/86 36.7 C (98.1 F) Oral 92 18 96 % -- 09/21/242221 104/66 -- -- 88 -- -- -- [...] last 7 days Lab Units 09/22/24 0609/21/24 2041 09/21/24 1152 09/21/24 0230 09/20/24 1114 [...] Results from last 7 days Lab Units 09/22/2461309/21/24 0230 09/20/24 0259 WBC x10E9/L 13.7* 12.2* [...] STATON 09/22/24 8:31 AM MARCELLE Staton 09/22/24 9162 I, ENID EATON JR, MD, personally performed [...] 4 mm nonobstructing right renal stone retroperitoneal whsegdzyjk52/03/2025; no stone definitively CT 09/20/2024 Recommendations: 1. As above 2. Craniotomy plan for tomorrow. We will plan to return to see the patient . Let us know ifyou need further help in the interim otherwise.. Thank you very much. I appreciate being asked to help with this patient's care. Enid Eaton Jr., M.D. [facility] [phone] * Mynor Vargas, [facility] - 09/22/2024 7:35 AM EDT Images from [...] Component Value Units Date/Time Blood culture #2 [[id number]] Collected: 09/20/24 0733 Specimen: Blood, Venous Updated: 09/22/24721 CULTURE RESULTS NO GROWTH 2 DAYS Narrative: Suboptimal volume of blood collected, Results may be affected. Blood culture #1 [[id number]] Collected: 09/20/24 0729 Specimen: Blood, Venous Updated: 09/22/24721 CULTURE RESULTS NO GROWTH 2 DAYS Narrative: Suboptimal volume of blood collected, Results may be affected. Blood culture [[id number]] (Abnormal) Collected: 09/19/24 0123 Specimen: Blood, Venous Updated: 09/21/24 1946 CULTURE RESULTS Staphylococcus, coagulase negative Staphylococcus, coagulase negative GRAM STAIN Gram positive cocci in clusters Narrative: Suboptimal volume of blood collected, Results may be affected. BLOOD CULTURE IDENTIFICATION PANEL [[id number]] (Abnormal) Collected: 09/19/24 0123 Specimen: Blood, Venous Updated: 09/19/242030 Staphylococcus epidermidis PCR Detected mecA/C gene PCR Detected (Methicillin Resistance) Blood culture [[id number]] Collected: 09/19/24 0026 Specimen: Blood, Venous Updated: [...] consulting. Mynor Vargas RPH * Laura Gore APRN-GEOTECHNICIAL PROPERTIES TECHNICIAN - 09/21/2024 3:31 PM EDT Images from the original note were not included. [facility] [address] [place] [address], [address] [place] [address] * NEUROSURGERY DAILY PROGRESS NOTE DATE:09/21/2024 PATIENT'S [...] day please go to ON-Call Finder in [employer] or [employer] and use log in Captimo and search for PTH Neurosurgery JACQUELINE Roth 09/21/24 160 * Andrae Chisholm, Kwabena - 09/21/2024 1:11 PM EDT Images from [...] Component Value Units Date/Time Blood culture #2 [[id number]] Collected: 09/20/24 0733 Specimen: Blood, Venous Updated: 09/21/24 1151 CULTURE RESULTS NO GROWTH 1 DAY Narrative: Suboptimal volume of blood collected, Results may be affected. Blood culture #1 [[id number]] Collected: 09/20/24 0729 Specimen: Blood, Venous Updated: 09/20/24 0729 Blood culture [[id number]] (Abnormal) Collected: 09/19/24 0123 Specimen: Blood, Venous Updated: 09/20/24 1833 CULTURE RESULTS Culture in progress GRAM STAIN Gram positive cocci in clusters Narrative: Suboptimal volume of blood collected, Results may be affected. BLOOD CULTURE IDENTIFICATION PANEL [[id number]] (Abnormal) Collected: 09/19/24 0123 Specimen: Blood, Venous Updated: 09/19/242030 Staphylococcus epidermidis PCR Detected mecA/C gene PCR Detected (Methicillin Resistance) Blood culture [[id number]] Collected: 09/19/24 0026 Specimen: Blood, Venous Updated: 09/21/24 0101 CULTURE RESULTS NO GROWTH 2 DAYS Concurrent Antibiotics: Anti-infectives (From admission, onward) Start Dose/Rate Route Frequency Ordered Stop 09/19/242100 vancomycin (VANCOCIN) IVPB Dosed by Levels intravenous Dosed by Levels 09/19/242100 Recent Vancomycin Serum Concentrations: Results from last 7 days Lab Units 09/21/24 1152 09/20/241955 VANCOMYCIN ug/mL 16.0 10.0 Indication: bacteremia Goal [...] for consulting. Andrae Chisholm PharmD * Gumaro Okeefe DO - 09/21/2024 12:56 PM EDT Images [...] retention Right temporal 4.1cm brain mass with dkhqc-rk-gzzw 60 mm shift with surrounding edema from [...] For questions please call: Answering Service at [phone] Or Office at [phone] This note was created with the assistance of a speech-recognition program. Although the intention is to generate a document that actually reflects the content of the visit, no guarantees can be provided that every mistake has been identified and corrected by editing. * Enid Eaton Jr., MD - 09/21/2024 8:19 AM EDT Images from the original note were not included. Jr. Zuniga Emmett, M.D., Jr. Wesly, Yasmin Carreno, Madhav Quinones M.D., [...] 4 mm nonobstructing right renal stone retroperitoneal tuxgouvqeu88/03/2025; no stone definitively CT 09/20/2024 Recommendations: 1. [...] with this patient's care. Enid Eaton Jr., M.Merry. [facility] [phone] * Mynor Vargas, [facility] - 09/20/2024 9:25 PM EDT Images from [...] Component Value Units Date/Time Blood culture #2 [[id number]] Collected: 09/20/24732 Specimen: Blood, Venous Updated: 09/20/24732 Blood culture #1 [[id number]] Collected: 09/20/24728 Specimen: Blood, Venous Updated: 09/20/24728 Blood culture [[id number]] (Abnormal) Collected: 09/19/24 0123 Specimen: Blood, Venous Updated: 09/20/24 1833 CULTURE RESULTS Culture in progress GRAM STAIN Gram positive cocci in clusters Narrative: Suboptimal volume of blood collected, Results may be affected. BLOOD CULTURE IDENTIFICATION PANEL [[id number]] (Abnormal) Collected: 09/19/24 0123 Specimen: Blood, Venous Updated: 09/19/242030 Staphylococcus epidermidis PCR Detected mecA/C gene PCR Detected (Methicillin Resistance) Blood culture [[id number]] Collected: 09/19/24 0026 Specimen: Blood, Venous Updated: [...] consulting. Mynor Vargas RPH * Chip Zarate APRN-GEOTECHNICIAL PROPERTIES TECHNICIAN - 09/20/2024 2:20 PM EDT BRIEF NEUROSURGERY [...] Edward- [facility] Please contact via QravedChat first then can utilize Patient touch/VoceraEdge if needed 09/20/24 2:22 PM To find out which DIANE is on for the day please go to [employer] and use log in Captimo and search for PTH Neurosurgery (DIANE and Phone Number is listed) JACQUELINE Vazquez 09/20/24 1423 * Hiram Jones MD - 09/20/2024 9:28 [...] Component Value Units Date/Time Blood culture #2 [[id number]] Collected: 09/20/24732 Specimen: Blood, Venous Updated: 09/20/24732 Blood culture #1 [[id number]] Collected: 09/20/24728 Specimen: Blood, Venous Updated: 09/20/24728 Blood culture [[id number]] (Abnormal) Collected: 09/19/24122 Specimen: Blood, Venous Updated: 09/19/242034 CULTURE RESULTS NO GROWTH <24 HRS GRAM STAIN Gram positive cocci in clusters Narrative: Suboptimal volume of blood collected, Results may be affected. BLOOD CULTURE IDENTIFICATION PANEL [[id number]] (Abnormal) Collected: 09/19/24 0123 Specimen: Blood, Venous Updated: 09/19/242030 Staphylococcus epidermidis PCR Detected mecA/C gene PCR Detected (Methicillin Resistance) Blood culture [[id number]] Collected: 09/19/24 0026 Specimen: Blood, Venous Updated: [...] Brain CT from September 18 outside facility [place] PROCEDURE: Multiplanar multisequence images performed through the [...] for surgical planning. I favor a primary CRAFT WORKER neoplasm such as a glioblastoma or astrocytoma. [...] follow with you. Enid Eaton Jr., M.D. [facility] [phone] * Miriam Church MD - 09/20/2024 7:51 [...] retention Right temporal 4.1cm brain mass with ulhdn-kl-iyei 60 mm shift with surrounding edema from [...] For questions please call: Answering Service at [phone] Or Office at [phone] This note was created with the assistance of a speech-recognition program. Although the intention is to generate a document that actually reflects the content of the visit, no guarantees can be provided that every mistake has been identified and corrected by editing. * Steffanie Lozano APRN-RUBINA - 09/20/2024 6:27 AM EDT Images from [...] of care discussed with Dr.case Steffanie Lozano STUCCO APPLICATOR GEOTECHNICIAL PROPERTIES TECHNICIAN Acute Care Nurse Practitioner [facility] [...] Procedure Component Value Units Date/Time Blood culture [[id number]] (Abnormal) Collected: 09/19/24122 Specimen: Blood, Venous Updated: 09/19/242034 CULTURE RESULTS NO GROWTH <24 HRS GRAM STAIN Gram positive cocci in clusters Narrative: Suboptimal volume of blood collected, Results may be affected. BLOOD CULTURE IDENTIFICATION PANEL [[id number]] (Abnormal) Collected: 09/19/24122 Specimen: Blood, Venous Updated: 09/19/242030 Staphylococcus epidermidis PCR Detected mecA/C gene PCR Detected (Methicillin Resistance) Blood culture [[id number]] Collected: 05/03/25 0026 Specimen: Blood, Venous Updated: 09/20/24 0101 CULTURE RESULTS NO GROWTH 1 DAY Ventilator [...] mL/hr, Last Rate: 75 mL/hr (09/20/24 0558) Steffanie Lozano APRN-RUBINA 09/20/24 0940 Cosigned by Mynor Watkins MD at 09/20/2024 9:58 AM EDT * Carolina Schulz [facility] - 09/19/2024 9:08 PM EDT Images from [...] Procedure Component Value Units Date/Time Blood culture [[id number]] (Abnormal) Collected: 09/19/24122 Specimen: Blood, Venous Updated: 09/19/242034 CULTURE RESULTS NO GROWTH <24 HRS GRAM STAIN Gram positive cocci in clusters Narrative: Suboptimal volume of blood collected, Results may be affected. BLOOD CULTURE IDENTIFICATION PANEL [[id number]] (Abnormal) Collected: 09/19/24122 Specimen: Blood, Venous Updated: 09/19/242030 Staphylococcus epidermidis PCR Detected mecA/C gene PCR Detected (Methicillin Resistance) Blood culture [[id number]] Collected: 09/19/24 0026 Specimen: Blood, Venous Updated: [...] vancomycin random concentration will be ordered for 5/, unless clinically indicated sooner Please see electronic record for orders Pharmacy Dosing Service to follow serum concentrations and adjust as needed based on the patient's clinical status. Thank you for consulting. Carolina Schulz [facility] * Mynor Mina RPH - 09/19/2024 4:22 AM EDT Pharmacist-Provider Communication Please note the dose of famotidine 20mg iv bid has been changed per the [facility]- approved renal dosing policy. Current CrCl = 6 mL/min. Accordingly, the dose of famotine 20mg iv bid was changed to famotidine 20mg iv q48hr. If there are any issues or concerns, please contact central pharmacy at [phone]. Thank you, Ayush Mnia Jr. [facility]. [facility] Hospital Discharge instructions* Discharge Instructions* Laura Gore APRN-GEOTECHNICIAL PROPERTIES TECHNICIAN - 09/26/2024 2:57 PM EDT Neurosurgery Discharge [...] ointments to your incision Other Instructions: Call [facility] Neurosurgery with any questions, . documented in this [facility]Mer[facility] History and physical note* Jair Espinal MD - 09/23/2024 1:11 PM EDT HISTORY AND PHYSICAL INTERVAL NOTE: Anupama Vasquez 1970 [id number] H&P reviewed. The patient was examined and there are no changes to the H&P. Jair Espinal MD Source Note - JACQUELINE Roth - 09/21/2024 3:31 PM EDT Images from the original note were not included. [facility] Neurosurgery Neurosciences Center [address] [place] [address], [address] [place] [address] * NEUROSURGERY DAILY PROGRESS NOTE DATE:09/21/2024 PATIENT'S [...] day please go to ON-Call Finder in [employer] or [employer] and use log in Captimo and search for PTH Neurosurgery JACQUELINE Roth 09/21/24 1606 JACQUELINE Roth 09/23/24 1311 * JACQUELINE Lemus - 09/19/2024 4:17 AM EDT CRITICAL CARE HISTORY & PHYSICAL Name: Anupama Vasquez Date: 09/19/2024 Length of Stay: 0 day(s) Chief Complaint Patient presents with Altered Mental Status Evaluation of Abnormal Diagnostic Test HISTORY OF PRESENT ILLNESS: Anupama Vasquez is a 54 y.o. year-old female with a past medical history significant for MS, who initially presented to [facility] from her rehab facility with complaints of altered mental status. Per chart review patient was recently treated for rhabdomyolysis. Her initial workup was significant for hyperkalemia with a potassium of 5.5, BRANDON with creatinine of 15.68, BUN 133, bicarb 20 and leukocytosis with WBC 12.7, also as CT head was obtained and demonstrated a 4.1 cm right temporal brain mass with wwiuq-dd-hysf 60 mm shift which includes surrounding edema [...] Medical History: Diagnosis Date MS (multiple sclerosis) ([facility]) 2012 Past Surgical History: [...] Strain: High Risk (06/04/2023) Received from [facility] Overall Financial Resource Strain (CARDIA) Difficulty of Paying Living Expenses: Very hard Food Insecurity: No Food Insecurity (09/16/2024) Hunger Screening Food Insecurity - Worry: Never True Food Insecurity - Inability: Never True Transportation Needs: No Transportation Needs (08/28/2024) PRAPARE - Transportation Lack of Transportation (Medical): No Lack of Transportation (Non-Medical): No Physical Activity: Sufficiently Active (06/04/2023) Received from [facility] Exercise Vital Sign Days of Exercise per Week: 4 days Minutes of Exercise per Session: 40 min Stress: No Stress Concern Present (06/04/2023) Received from [facility] - Occupational Stress Questionnaire Feeling of Stress : Only a little Social Connections: Moderately Integrated (06/04/2023) Received from [facility] Social Connection and Isolation Panel [NHANES] Frequency of Communication with Friends and Family: Twice a week Frequency of Social Gatherings with Friends and Family: Once a week Attends Zoroastrian Services: 1 to 4 times per year [...] C (99.1 F) Pulse: [98-107] 98 Resp: [11-] 25 BP: (121-163)/(57-124) 150/94 SpO2: [90 %-96 [...] Procedure Component Value Units Date/Time Blood culture [[id number]] Collected: 09/19/24 0123 Specimen: Blood, Venous Updated: 09/19/24 0135 Blood culture [[id number]] Collected: 09/19/24 0026 Specimen: Blood, Venous Updated: [...] Procedure Component Value Units Date/Time Blood culture [[id number]] Collected: 09/19/24 0123 Specimen: Blood, Venous Updated: 09/19/24 0135 Blood culture [[id number]] Collected: 09/19/24 0026 Specimen: Blood, Venous Updated: 09/19/24 0045 Lines/Drains CVC Triple Lumen 09/19/24 Right Internal Jugular (Active) Precautions Standard precautions;Hand hygiene;Gloves 09/19/24399 Lumen 1 Proximal 09/19/24 040 Lumen 1 [...] 040 Dressing Type Occlusive;Transparent with CHG gel 09/19/24399 Dressing Status Clean;Dry;Intact 09/19/24 040 Dressing Intervention Dressing changed 09/19/24399 Line Necessity Peripherally incompatible solution 09/19/24399 Line Necessity Reviewed With crit care 09/19/24 040 Patient Tolerance of Line Care Tolerated well 09/19/24399 Central Line Dressing Change Due (Non-Gauze) 09/26/24 09/19/24 040 Peripheral IV 09/19/24 Right Forearm (Active) Line Status Blood return noted;Saline locked;Flushed;Alcohol sponge cap changed;Connections checked/tightened 09/19/24399 Site Assessment Clean;Intact;Dry 09/19/24 0400 Dressing Type Occlusive;Transparent 09/19/24 040 Dressing Status Clean;Dry;Intact 09/19/24 040 Dressing Intervention Initial dressing 09/19/24399 Dressing Change Due (Non-Gauze) 09/26/24 09/19/24 040 Urinary Catheter 09/19/24 (Active) Catheter Status Patent 09/19/24 000 Site Assessment Clean 09/19/24 000 Collection Container Leg bag 09/19/24 000 Securement Method Securing device (Describe) 09/19/24 000 Tamper Evident Seal Intact Yes 09/19/246 Urine Color Yellow/straw 09/19/24311 Urine Appearance Cloudy 09/19/24311 Output (mL) 1550 mL 09/19/24311 Patient Active Problem List Diagnosis Non-traumatic rhabdomyolysis Weakness Generalized anxiety disorder with panic attacks Hyperlipidemia, acquired Multiple sclerosis ([facility]) LORENZO (obstructive sleep apnea) Primary hypertension Primary [...] 4.1 cm right temporal brain mass with wxquo-rv-ptqk 60 mm shift which includes surrounding edema 4.1 cm right temporal brain mass with 6 mm qfnde-nl-kyjo midline shift - closely monitor neuro status [...] follow. JACQUELINE LEMUS Acute Care Nurse Practitioner [facility] Please feel free to contact me via Patient Touch Critical Care Time: 39 minutes. Non-contiguous time with attending MD, excluding procedures. [] This patient, with a critical illness, requires constant monitoring and titration of care by a Critical Care Maintenance Service Technician. Failure to do so may result in further organ system failure, imminent deterioration, or . JACQUELINE Lemus 09/19/24 0535 Cosigned by Sheila Jung MD at 09/19/2024 6:12 AM EDT documented in this [facility]Mer[facility] NoteXR CHEST 1 VW History: Preoperative exam. History of asthma. Procedure: Chest AP portable upright Comparison: 10/06/2024 Findings: The heart and lungs show no acute findings, and the mediastinum and gema are grossly negative . No pneumothorax. Impression: No acute pulmonary process. Finalized by Shen Farooq MD on 09/23/2024 12:23 [facility] 09-22-2024 Consult note* Melo Gill PA-C - 09/22/2024 11:32 AM EDT Associated Order(s): IP CONSULT TO CARDIOLOGY Images from the original note were not included. [facility] [address] [place] [address] HISTORY & PHYSICAL / CONSULT NOTE Anupama [...] with surrounding edema. Pt was transferred to [facility]. Pt still has altered mental status. From a cardiac standpoint she was having intermittent narrow complex tachycardia. Previous Medical History: Past Medical History: Diagnosis Date MS (multiple sclerosis) ([facility]) 2012 Previous Surgical History: Past Surgical History: [...] mg 4 mg intravenous Q6H FELTON Zarate APRN-GEOTECHNICIAL PROPERTIES TECHNICIAN 4 mg at09/22/24 0609 dextrose (GLUTOSE) 40 % gel 15 g 15 g oral PRN MARCELLE Spencer dextrose 2.5 % in water, 1,000 mL infusion 50-150 mL/hr intravenous Continuous Steffanie Lozano APRN-GEOTECHNICIAL PROPERTIES TECHNICIAN Stopped at 09/22/24 0747 dextrose 50 % in water (D50W) 50% solution 25 mL 25 mL intravenous PRN MARCELLE Spencer famotidine (PF) (PEPCID) injection 20 mg 20 mg intravenous Q48H MARCELLE Spencer 20 mg at 09/21/24 1507 glucagon HCL injection 1 mg 1 mg intramuscular PRN MARCELLE Spencer heparin (porcine) injection 5,000 Units 5,000 Units subcutaneous Q8H [facility] Laura Gore APRN-GEOTECHNICIAL PROPERTIES TECHNICIAN 5,000 Units at 09/22/24 0608 hydrALAZINE (APRESOLINE) injection 10 mg 10 mg intravenous Q6H PRN MARCELLE Spencer 10 mg at 09/20/24 2120 labetaloL (NORMODYNE,TRANDATE) injection 10 mg 10 mg intravenous Q4H PRN MARCELLE Spencer 10 mg at 09/22/24 0733 levETIRAcetam (KEPPRA) IVPB 500 mg/100 mL in iso-osmotic sodium chloride (5 mg/mL premix) 500 mg intravenous Q12H Chip Zarate APRN-RUBINA Stopped at 09/22/24 0629 magnesium sulfate IVPB [...] 20-60 mEq 20-60 mEq oral PRN JACQUELINE Hguhes Or potassium chloride IVPB 10 mEq/100 mL [...] 146/87 Pulse: 85 88 82 73 Resp: 18 18 17 Temp: 36.9 C (98.5 [...] This note was completed using a voice tank worker system. Every effort was made to ensure accuracy. However, inadvertent computerized tank worker errors may be present. Melo Gill PA-C 09/22/24 1138 Cosigned by Ned Machado MD at 09/22/2024 1:27 PM EDT * Skye Lara MD - 09/21/2024 11:10 AM EDT Images from the original note were not included. [facility] GEN ICU [address] [facility] [id number] Hospital Medicine Consultation Patient: Anupama Vasquez Date of : 1970 Room: [place] [address] PCP: JACQUELINE LUNA Admission date: 09/18/2024 11:59 PM Hospital Day: 4 Encounter date: 09/21/24 Hospital Day: 4 SUBJECTIVE Reason for Consult: Assume Primary on transfer from ICU Referring Physician/Team: Neurosurgery/Critical Care Anupama Vasquez is a 54 y.o. female with a past medical history including MS, hypertension, hyperlipidemia, obstructive sleep apnea, obesity who initially presented to [facility] via EMS 09/18/2024 from her extended care facility for altered mental status. Initial lab work at [place] showed hyp erkalemia of 5.5 creatinine 15.68, [...] 4.1 cm right temporal brain mass with habcg-dn-zhyv shift and surrounding edema. Case was discussed with neurosurgery and patient was transferredER to ER here to [facility] for further neurosurgery evaluation. She was [...] patient was treated under our service at [facility] in August for nontraumatic rhabdomyolysis. At that [...] past medical history of MS (multiple sclerosis) ([facility]) (2012). Past Surgical History: [...] Brain CT from September 18 outside facility [place] PROCEDURE: Multiplanar multisequence images performed through the [...] for surgical planning. I favor a primary CRAFT WORKER neoplasm such as a glioblastoma or astrocytoma. [...] AM IMao MD have personally reviewed the image(s)and agree [...] for acute or suspicious pathology in the evtmf-kg-gkjl. The trachea and bronchi are patent. No [...] JACQUELINE Hamilton 09/21/2024 3:26 PM [facility] 7AM-7PM & 7PM-7AM: EpicChat or page through On-Call Finder. JACQUELINE Hamilton 09/21/24 1543 I, Skye Lara MD, personally performed the face to face diagnostic evaluation on this patient. I have reviewed the DIANE's History, Exam, and MDM and agree with the assessment and plan as written. * DEISY Haines - 09/21/2024 10:32 AM EDTAssociated Order(s): IP CONSULT TO NUTRITION SERVICES NUTRITION ADULT INITIAL EVALUATION NUTRITION ASSESSMENT: Reason to be seen: TF management Patient History: Admit Diagnosis: Patient Active Problem List Diagnosis Non-traumatic rhabdomyolysis Weakness Generalized anxiety disorder with panic attacks Hyperlipidemia, acquired Multiple sclerosis ([facility]) LORENZO (obstructive sleep [...] Medical History: Diagnosis Date MS (multiple sclerosis) ([facility]) 2012 Past Surgical History: Past Surgical History: Procedure Laterality Date CARPAL TUNNEL RELEASE Left SHOULDER ARTHROSCOPY W/ ROTATOR CUFF REPAIR Left Social/ Cognitive/ Economic: readmitted from rehab facility Brief Clinical Summary: past medical history significant for MS, who initially presented to [facility] from her rehab facility with complaints of altered mental status. Patient with BRANDON, acuteurine retention, found to have right temporal mass Biochemical Data, Medical Tests, and Procedures: 09/23 OR Craniotomy planned for tumor excision Labs: Results from last 3 days Lab Units 09/21/2422909/20/24195509/20/24111309/20/2425809/19/24 1223 09/19/24 0412 09/19/24 0026 SODIUM mmol/L [...] Results from last 7 days Lab Units 09/21/2422909/20/2425809/19/2441109/19/24 0407 09/19/24 0026 BEDSIDE GLUCOSE mg/dL -- -- -- 110* -- GLUCOSE mg/dL 127* 149* 107* -- 103* Results from last 3 days Lab Units 09/21/2422909/20/2425809/19/24 0446 WBC x10E9/L 12.2* 8.9 9.2 HEMOGLOBIN g/dL 11.0* 11.0* 11.4* HEMATOCRIT % 33.6* 33.5* 34.9* PLATELETS X10E9/L 183 190 189 MCV fL 83 82 82 Results from last 3 days Lab Units 09/21/2422909/20/24111309/20/24258 09/19/24 0412 MAGNESIUM mg/dL 1.8 -- 1.8 2.4 IONIZED MAGNESIUM mmol/L -- 0.64 -- -- Results from last 3 days Lab Units 09/21/24 0230 09/20/24 0259 09/19/24 0412 PHOSPHORUS mg/dL 2.7 3.5 5.8* CALCIUM, [...] 22 08/29/2024 Lab Results Component Value Date [id number] 517 09/19/2024 Lab Results Component Value Date [...] injection 4 mg 4 mg intravenous Q6H [facility] JACQUELINE Vazquez 4 mg at09/21/24 0616 dextrose (GLUTOSE) 40 [...] injection 5,000 Units 5,000 Units subcutaneous Q8H [facility] MARCELLE Spencer 5,000 Units at 09/21/24 [...] Levels intravenous Dosed by Levels JACQUELINE Lemus Nutrition Focused Physical Findings +NG, confused Extremities, Muscles, and Bones A. Muscle Loss - appears WNL B. Loss of Subcutaneous Fat - appears WNL Skin (per nursing flow sheets): Skin Color: [place]ach[place]; Pale (09/21/24 08) Skin Temp: Cool; Clammy (09/21/24799) Wound (per nursing flow sheets): Wound 09/19/24 Skin Tear Thigh Anterior;Left-Site Assessment: Unable to assess (dressing on) (09/21/24 08) Wound 09/19/24 Pressure Injury Buttocks Left-Site Assessment: Unable to assess (dressing on) (09/21/24799) Gastrointestinal (per nursing flow sheets): Abdomen Assessment: Soft; Rounded; Pannis ( Apron ); Obese (09/21/24799) Last BM Date: (hu) (09/20/241929) Passing Flatus: Yes (09/20/24 033) RUQ Bowel Sounds: Present (09/21/24799) LUQ Bowel Sounds: Present (09/21/24799) RLQ Bowel Sounds: Present (09/21/24799) LLQ Bowel Sounds: Present (09/21/24799) Edema (per nursing flow sheets): RLE Edema: +2 (09/21/24799) LLE Edema: +2 (09/21/24799) Intake/ Output Last 24 hrs: Intake/Output Summary (Last 24 hours) at 09/21/2024 1032 Last data filed at 09/21/2024 0619 Gross per 24 hour Intake 2280.02 ml Output 1975 ml Net 305.02 ml Food/Nutrition Related History: Diet History: unable to obtain Nutrition Knowledge/Beliefs/Attitudes: not appropriate Allergies: No Known Allergies Diet/ Nutrition Order Review: Dietary Orders (From admission, onward) Start Ordered 09/19/24413 Adult diet NPO Diet effective now Question: [...] Body Weight: see above for wt trends [place] Body Weight: 61.4kg Percent [place] Body Weight: 193% Weight Changes: 8.5kg loss/3 months (7%) Body Mass Index: Body mass index is 40.92 kg/m . BMI Category: Obese class 3 (> or = 40.00) Comparative Standards: Estimated Energy Needs: 4361-0354 kcals daily. Method and weight used: 28-32 kcal/kg IBW Estimated Protein Needs: 74-123 grams daily. Method and weight used: 1.2-2g protein/kg IBW Estimated Fluid Needs: 6950-3362 ml daily. Method weight used: 28-32 ml/kg [...] RD, LD Clinical Dietitian Direct Line * Hiram Jones [...] 4.1 cm right temporal brain mass with pqxyl-as-xosk shift 6 cm and surrounding edema. Urology [...] Medical History: Diagnosis Date MS (multiple sclerosis) ([facility]) 2012 Past Surgical History: [...] Strain: High Risk (06/04/2023) Received from [facility] Overall Financial Resource Strain (CARDIA) Difficulty of Paying Living Expenses: Very hard Food Insecurity: No Food Insecurity (09/16/2024) Hunger Screening Food Insecurity - Worry: Never True Food Insecurity - Inability: Never True Transportation Needs: No Transportation Needs (08/28/2024) PRAPARE - Transportation Lack of Transportation (Medical): No Lack of Transportation (Non-Medical): No Physical Activity: Sufficiently Active (06/04/2023) Received from [facility] Exercise Vital Sign Days of Exercise per Week: 4 days Minutes of Exercise per Session: 40 min Stress: No Stress Concern Present (06/04/2023) Received from [facility] Citizen Of [place] Ethel of Occupational Health - Occupational Stress Questionnaire Feeling of Stress : Only a little Social Connections: Moderately Integrated (06/04/2023) Received from [facility] Social Connection and Isolation Panel [NHANES] Frequency of Communication with Friends and Family: Twice a week Frequency of Social Gatherings with Friends and Family: Once a week Attends Zoroastrian Services: 1 to 4 times per year [...] Procedure Component Value Units Date/Time Blood culture [[id number]] Collected: 09/19/24 012 Specimen: Blood, Venous Updated: 09/19/24134 Blood culture [[id number]] Collected: 09/19/2425 Specimen: Blood, Venous Updated: 09/19/2444 Urinalysis: Lab [...] 4 mm nonobstructing right renal stone retroperitoneal agetzmmbjm60/03/2025 Recommendations: 1. As above 2. check stone protocol CT to rule out stone. 3. Pending OR Saturday Neurosurgery. We will follow with you. Thank you very much. I appreciate being asked to help with this patient's care. Enid Eaton Jr., M.D. [facility] [phone] * Chip Zarate APRN-GEOTECHNICIAL PROPERTIES TECHNICIAN - 09/19/2024 11:00 AM EDTAssociated Order(s): Consult Neurosurgery Images from the original note were not included. [facility] [address] [place] [address], [address] [place] [address] * NEUROSURGERY CONSULT NOTE DATE:09/19/2024 PATIENT'S NAME: [...] 4 mg, intravenous, Q6H FELTON, Chip Zarate, STUCCO APPLICATOR-GEOTECHNICIAL PROPERTIES TECHNICIAN, 4 mg at 09/19/24 1326 dextrose (GLUTOSE) [...] premix), 500 mg, intravenous, Q12H, Chip Zarate, ELAN-GEOTECHNICIAL PROPERTIES TECHNICIAN, Stopped at 09/19/24 0910 magnesium sulfate IVPB [...] Medical History: Diagnosis Date MS (multiple sclerosis) ([facility]) 2012 Past Surgical History: [...] [facility]- [facility] Please contact via InfoDif first then can utilize Patient touch/VoceraEdge if needed 09/19/24 3:10 PM To find out which DIANE is on for the day please go to [employer] and use log in Captimo and search for [facility] Neurosurgery (DIANE and Phone Number is listed) - JACQUELINE VAZQUEZ 09/19/24 2:53 PM JACQUELINE Vazquez 09/19/24 7982 * Miriam Church MD - 09/19/2024 9:13 [...] status. The patient apparently was seen at [facility] for altered mental status. She was found to have acute kidney injury with a creatinine 14.8. CT revealed a 4.1 cm right temporal mass with midline shift. The patient was found to have acute urine retention. Alexis catheter was placed. She was transferred to [facility] for further evaluation management and neurosurgical [...] retention Right temporal 4.1 brain mass with xmfli-el-fext 60 mm shift with surrounding edema from [...] Resource Strain: High Risk (06/04/2023) Received from [facility] Overall Financial Resource Strain (CARDIA) Difficulty of Paying Living Expenses: Very hard Food Insecurity: No Food Insecurity (09/16/2024) Hunger Screening Food Insecurity - Worry: Never True Food Insecurity - Inability: Never True Transportation Needs: No Transportation Needs (08/28/2024) PRAPARE - Transportation Lack of Transportation (Medical): No Lack of Transportation (Non-Medical): No Physical Activity: Sufficiently Active (06/04/2023) Received from [facility] Exercise Vital Sign Days of Exercise per Week: 4 days Minutes of Exercise per Session: 40 min Stress: No Stress Concern Present (06/04/2023) Received from [facility] Citizen Of [place] Ethel of Occupational Health - Occupational Stress Questionnaire Feeling of Stress : Only a little Social Connections: Moderately Integrated (06/04/2023) Received from [facility] Social Connection and Isolation Panel [NHANES] Frequency of Communication with Friends and Family: Twice a week Frequency of Social Gatherings with Friends and Family: Once a week Attends Zoroastrian Services: 1 to 4 times per year [...] call us with any questions at: Office: [phone] Office Answering Service: [phone] Miriam Church M.D. This note was created with the assistance of a speech-recognition program. Although the intention is to generate a document that actually reflects the content of the visit, no guarantees can be provided that every mistake has been identified and corrected by editing. documented in this [facility] Emergency department Note* Isaiah Driscoll RN - 09/19/2024 12:04 AM EDT Arrives via flight from [facility]. From a SNF, sent here for altered mental status and abnormal CT results, pt is alert but not oriented. * Lewis Botello DO - 09/19/2024 12:03 AM EDT Images from the original note were not included. [facility] - EMERGENCY DEPARTMENT Pt Name: Anupama [...] consultation. Per records brought by EMS from [facility] ED patient was seen for urinary retention with GFR of 14.85, altered mental status, patient hada CT done which revealed 4.1 cm right temporal brain mass with ylkue-se-jzsd 60 mm shift which includes surrounding edema. Patient is protected airway is able to communicate. History provided by: Patient Past Medical History: Past Medical History: Diagnosis Date MS (multiple sclerosis) ([facility]) 2012 Past Surgical History: [...] Strain: High Risk (06/04/2023) Received from [facility] Overall Financial Resource Strain (CARDIA) Difficulty of Paying Living Expenses: Very hard Food Insecurity: No Food Insecurity (09/16/2024) Hunger Screening Food Insecurity - Worry: Never True Food Insecurity - Inability: Never True Transportation Needs: No Transportation Needs (08/28/2024) PRAPARE - Transportation Lack of Transportation (Medical): No Lack of Transportation (Non-Medical): No Physical Activity: Sufficiently Active (06/04/2023) Received from [facility] Exercise Vital Sign Days of Exercise per Week: 4 days Minutes of Exercise per Session: 40 min Stress: No Stress Concern Present (06/04/2023) Received from [facility] Ethel of Occupational Health - Occupational Stress Questionnaire Feeling of Stress : Only a little Social Connections: Moderately Integrated (06/04/2023) Received from [facility] Social Connection and Isolation Panel [NHANES] Frequency of Communication with Friends and Family: Twice a week Frequency of Social Gatherings with Friends and Family: Once a week Attends Zoroastrian Services: 1 to 4 times per year [...] requested flight: Flight accepted, will be to [place] at 2300. 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 Wound Care Progress Note Patient: Anupama Vasquez Date of : 1970 Chief Complaint: Wound on buttocks New patient evaluation SUBJECTIVE/HPI: Anupama is a 54 y.o. 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 Past Medical History: Diagnosis Date MS (multiple sclerosis) ([facility]) 2012 Past Surgical History: Procedure Laterality Date [...] (Active) Wound Image 09/16/24 1323 Site Assessment Yellow;Pachuta 09/16/241322 Fallon-wound Assessment Blanchable erythema;Pachuta 09/16/243 Wound Length (cm) 1 cm 09/16/241322 Wound Width (cm) 1 cm 09/16/24 132 Wound Surface Area (cm^2) 0.79 cm^2 09/16/24 1323 Wound Depth (cm) 0.1 cm 09/16/241322 Wound Volume (cm^3) 0.052 cm^3 09/16/24 132 Drainage Description Serous;Yellow 09/16/24 132 Drainage Amount Small 09/16/241322 Treatments Cleansed with;Soak with;Vashe/Hypochlorous Acid 09/16/241322 Wound Bed Granulation (%) 75% to 100% 09/16/241322 Wound Bed Slough (%) < 25% 09/16/24 [...] and buttocks. Short term goal: medical compliance MCFP goal: wound closure Patient verbalize understanding of [...] GERMAIN 09/16/24 1:40 PM Adonay Castillo APRN, CNP, ARJUN, ZOE Macdonaldt [facility]: [phone] JACQUELINE Germain 09/16/24 8162 documented in this encounterMercy [facility]04-30-2025 Instructions* Patient Instructions* Angela Chapa RN - 09/16/2024 1:20 PM EDT Wound Management Treatment Plan [facility] Wound Location(s): LEFT BUTTOCKS HOW [...] Description small Serous serous documented in this encounterMercy [facility]04-01-2025 History of Present illness Narrative* Fred Gracia [...] (BMI) of 45.0 to 49.9 in adult ([facility]) 04/30/2023 Constipation Depression ([facility]) Hot flashes 07/30/2023 Hyperlipidemia, acquired ([facility]) 07/30/2023 Hypertension ([facility]) Knee pain, left anterior Major depression ([facility]) Morbid obesity with BMI of 40.0-44.9, adult ([facility]) Multiple sclerosis ([facility]) Night sweats 07/30/2023 LORENZO (obstructive sleep apnea) 07/30/2023 Pain of left middle finger Primary insomnia Rash Rectal burning Right knee pain, unspecified chronicity Sinusitis Stroke ([facility]) 07/30/2023 Urinary incontinence in female Vaginal discharge Vitamin D deficiency Past Surgical History: Procedure Laterality Date CARPAL TUNNEL RELEASE Right 2005 ECTOPIC SURGERY HYSTERECTOMY 1991 SHOULDER SURGERY Left 02/10/2024 Arthroscopy, RCR @ [facility] w/ MTP TUBAL LIGATION 1990 family [...] depressive disorder, recurrent, moderate (CMS/HCC) Current meds: abilify lexapro buspar Will add mirtazapine * Fred Gracia [...] juices, and sugary drinks. documented in this [facility]04-01-2025 Instructions* Patient Instructions* Fred Gracia NP - 08/18/2024 9:20 AM EDT Cont escitalopram 10mg daily, as well as the aripriazole 10mg daily Increase the buspirone from 5mg , to 7.5mg and you can take this every 8 hour NEEDED for anxiety We will add the mirtazipine for sleep I will refer you to [facility] services in [place], they should call you documented in this [facility]03-17-2025 Telephone encounter Note* Telephone Encounter - Elva Rodriguez NP - 08/03/2024 11:58 AM EDT Patient needs to reschedule appointment she missed today. She is [place] patient and was scheduledwith [facility]. [facility] follow up visits are 30 minutes and new patients 40 minutes. This would be follow up visit. [facility] Healthcare Work Phone: [phone] 218-436303-17-2025 Miscellaneous Notes* Telephone Encounter - Elva Rodriguez NP - 08/03/2024 11:58 AM EDT Patient needs to reschedule appointment she missed today. She is [place] patient and was scheduledwith [facility]. [facility] follow up visits are 30 minutes and new patients 40 minutes. This would be follow up visit. documented in this encounterSaint Luke[facility] East [id number] History of Present illness Narrative* Sherrie Boone NP - 06/17/2024 9:57 AM ESTAssociated Problem(s): Acute non-recurrent frontal sinusitis Sinus congestion X2 weeks Ear ache Has tried OTC regimens with no relief. Will treat with Doxycycline x7 days, Flonase and Zyrtec. Return to office if symptoms worsen or do not improve. * Sherrei Boone NP - 06/17/2024 9:30 AM EST [...] (ZyrTEC) 10 MG tablet documented in this encounterSaint Luke's East [id number] Instructions* Patient Instructions* Sherrie Boone NP - [...] THE NEAREST EMERGENCY DEPARTMENT. documented in this encounterSaint Luke's East [id number] History of Present illness Narrative* Fred Gracia [...] at least twice a day. * Fred Ascenciovicky, MANAGER ENTERPRISE - 05/18/2024 9:20 AM EST Images from [...] Date Abnormal CBC 07/30/2023 Anxiety and depression ([facility]) Carpal tunnel syndrome 2002 Chronic diarrhea Chronic shoulder pain 05/01/2023 Class 3 severe obesity without serious comorbidity with body mass index (BMI) of 45.0 to 49.9 in adult ([facility]) 04/30/2023 Constipation Depression ([facility]) Hot flashes 07/30/2023 Hyperlipidemia, acquired ([facility]) 07/30/2023 Hypertension (CMS/HCC) Knee pain, left anterior Major depression (CMS/HCC) Morbid obesity with BMI of 40.0-44.9, adult ([facility]) Multiple sclerosis ([facility]) Night sweats 07/30/2023 LORENZO (obstructive sleep apnea) 07/30/2023 Pain of left middle finger Primary insomnia Rash Rectal burning Right knee pain, unspecified chronicity Sinusitis Stroke (CMS/HCC) 07/30/2023 Urinary incontinence in female Vaginal discharge Vitamin D deficiency Past Surgical History: Procedure Laterality Date CARPAL TUNNEL RELEASE Right 2004 ECTOPIC SURGERY HYSTERECTOMY 1991 SHOULDER SURGERY Left 02/10/2024 Arthroscopy, RCR @ [facility] w/ MTP TUBAL LIGATION 1990 family [...] has, dx 20 years ago * Fred Garcia NP - 05/18/2024 6:19 AM ESTAssociated Problem(s): Multiple sclerosis (CMS/HCC) Continue with neurology and treatment documented in this [facility]12-30-2024 Instructions* Patient Instructions* Fred Gracia NP - 05/18/2024 9:20 AM EST Keep escitalopram at 10mg, add ariprazole 5mg daily, add buspar 5mg twice a day for anxiety Follow up appt in 4 weeks Need mammogram-I will fax order to [facility] documented in this [facility]12-16-2024 Telephone encounter Note* Telephone Encounter - Vicenta [...] for shoulder. She noted the recommendation. [facility] HospitalArghdyukvr84-84-0627 Miscellaneous Notes* Telephone Encounter - Vicenta Dill [...] and notify if requested. documented in this encounterSaint Luke's East HospitalApmnwytlom77-11-3800 Telephone encounter Note* Telephone Encounter - Vicenta [...] inform PT and notify if requested. [facility] HospitalVxwvlqfuyy36-36-8844 History of Present illness Narrative* Alona King [...] called to verify the correctpatient, procedure, equipment, support manager and site/side marked as required. Patient was [...] used for breakthrough discomfort. documented in this encounterSaint Luke's East HospitalYvtttmwgaw87-53-1454 Instructions* Patient Instructions* MARCELLE Perea - 04/27/2024 [...] used for breakthrough discomfort. documented in this [facility]12-09-2024 Telephone encounter Note* Telephone Encounter - Fred Gracia NP - 04/27/2024 8:09 AM EST Please call to schedule pt a fu appt in the next month [place] [facility] HospitalLohnazqwqa21-18-2428 Miscellaneous Notes* Telephone Encounter - Fred Gracia NP - 04/27/2024 8:09 AM EST Please call to schedule pt a fu appt in the next month [place] documented in this [facility]10-21-2024 Telephone encounter Note* Telephone Encounter - Karol Larry - 03/09/2024 2:42 PM EDT Patient stated [...] her ass she's doing itand hung up. [facility] HospitalWeywotsglg41-02-1233 Miscellaneous Notes* Telephone Encounter - Karol Juarez [...] doing itand hung up. documented in this encounterSaint Luke's East HospitalZtswhbrtki19-46-5118 History of Present illness Narrative* Fred Gracia [...] hours as needed for shoulder surgical pain., [employer] #72, 167.7, cm, 02/05/24 11:09:00 EDT, Height/Length [...] Date Abnormal CBC 07/30/2023 Anxiety and depression ([facility]/HCC) Carpal tunnel syndrome 2002 Chronic diarrhea Chronic shoulder pain 05/01/2023 Class 3 severe obesity without serious comorbidity with body mass index (BMI) of 45.0 to 49.9 in adult (CMS/[facility]) 04/30/2023 Constipation Depression (CMS/HCC) Hot flashes 07/30/2023 Hyperlipidemia, acquired (CMS/[facility]) 07/30/2023 Hypertension (CMS/HCC) Knee pain, left anterior Major depression (CMS/HCC) Morbid obesity with BMI of 40.0-44.9, adult (CMS/[facility]) Multiple sclerosis ([facility]) Night sweats 07/30/2023 LORENZO (obstructive sleep apnea) 07/30/2023 Pain of left middle finger Primary insomnia Rash Rectal burning Right knee pain, unspecified chronicity Sinusitis Stroke (CMS/HCC) 07/30/2023 Urinary incontinence in female Vaginal discharge Vitamin D deficiency Past Surgical History: Procedure Laterality Date CARPAL TUNNEL RELEASE Right 2004 ECTOPIC SURGERY HYSTERECTOMY 1991 SHOULDER SURGERY Left 02/10/2024 Arthroscopy, RCR @ [facility] w/ MTP TUBAL LIGATION 1990 family [...] Relevant Orders Flu vaccine, MDCK, quadrivalent, PF (FQO739) (Flucelvax single dose syringe) Candidiasis of skin D/t her arm being in a sling, she is requesting we use nystatin powder as cream and ointment is notsomething she can properly use at this time Relevant Medications nystatin (Mycostatin) 785413 UNIT/GM powder documented in this encounterSaint Luke's East HospitalRisvypsuha80-88-6895 History of Present illness Narrative* Eliazar Brooks [...] of the findings were discussed at length. [place] removed. Pain controlled. Emotional with passing of spouse. Ice 2-3 three times a day for the next couple weeks. Sling for 2 more weeks. PT was sent [facility] lizbeth Talbert RC repair protocol. F/U will be in 2 months, prn if doing well. All questions answered. documented in this encounterSaint Luke's East HospitalHxccxpcmwr21-48-7420 Telephone encounter Note* [facility] En[facility] - 02/14/2024 10:31 AM EDT MTP- PO Lt shoulder scope prob RCR [facility] 02/10/24 Patient called requesting a home health assistance, she states she has noone to help her I spoke with Naomi- with her type of surgery she will not qualify for any assistance. At this time we cannot order a home health assistance for her- Can you please call patient and inform her. [place] [id number] Miscellaneous Notes* Telephone Encounter - [facility] - 02/14/2024 10:31 AM EDT MTP- PO Lt shoulder scope prob RCR [facility] 02/10/24 Patient called requesting a home health assistance, she states she has noone to help her I spoke with Naomi- with her type of surgery she will not qualify for any assistance. At this time we cannot order a home health assistance for her- Can you please call patient and inform her. documented in this encounterSaint Luke's East HospitalBrmrnzfsdx26-52-3213 Telephone encounter Note* Telephone Encounter - Priyanka Kim - 02/13/2024 2:31 PM EDT Was wanting to know if she could stop taking the percocet, pain isn't that bad and she was wanting to take her trazodone. [place] [id number] Miscellaneous Notes* Telephone Encounter - Priyanka Kim - 02/13/2024 2:31 PM EDT Was wanting to know if she could stop taking the percocet, pain isn't that bad and she was wanting to take her trazodone. documented in this encounterSaint Luke's East HospitalEirqpjqxoq62-15-6905 Hospital Discharge instructions Patient Education 02/10/2024 15:39:49 Shoulder Cryocuff Patient Instructions - FT (CUSTOM) 02/10/2024 15:39:45 Post Op Patient Instructions - FT (CUSTOM) 02/06/2024 18:01:14 Brooks - After Your Shoulder Arthroscopy (Revised 06/17/14) (CUSTOM) [place], [place] [facility] AFTER YOUR SHOULDER ARTHROSCOPY [...] your appointment. Eliazar Brooks, DO [facility] [address] [place] [address] Reviewed: 15 Follow Up Care 12/24/2023 11:37:06 With:YUE Santamaria Address: [address] [place] [phone]- Business (1) When:02/25/2024 14:30:00 Comments:Keep scheduled appointmentCall for any problems. [facility] [id number] NoteProgress Note-Physician Patient: ANUPAMA VASQUEZ Age: 53 years Sex: Female : 1970 Associated Diagnoses: None Author: Mynor Vega MD Postoperative Information Postoperative disposition: Postoperative disposition: To PACU. Optimetrix number: Optimetrix number [id number]. Anesthetic utilized: General. Regional: Interscalene Block. Health [...] Discharge when meets criteria ( To home ).[facility]:Result Comment: Electronically Signed By: Mynor Vega MD\.br\Date and Time Signed: 02/10/24 16:19 EDT 02-10-2024 NotePatient Education - Text [place], [place] [facility] AFTER YOUR SHOULDER ARTHROSCOPY [...] appointment. Eliazar Brooks, DO [facility] [address] [place] [address] Reviewed: 06-03[facility]09-23-20[facility] Evaluation + Plan note Extracted from: Title:ANES Post-operative Note---General Author: Mynor Vega MD Date:02/10/24 Plan Transfer/Discharge: Transfer/Discharge Discharge when meets criteria ( To home ). Extracted from: Title:ANES Pre-operative Note 2022 Author:Mynor Young Date:02/10/24 Plan [place] [employer] Anesthesiologists (ASA) physical status classification: Class III. Anesthetic Preoperative Plan: Anesthesia General, and LMA. Regional Interscalene block. [facility] [id number] NoteProgress Note-Physician Patient: ANUPAMA VASQUEZ Age: 53 [...] hours as needed for shoulder surgical pain., [employer] #72, 167.7, cm, 02/05/24 11:09:00 EDT, [...] mL/hr PRN: (12) acetaminophen-oxyC (more content not included)...[facility] Comment on above:Result Comment: Electronically Signed By: Mina BENITEZ, Mynor Markham\.br\Date and Time Signed: 02/10/24 13:21 [id number] History of Present illness Narrative* Fred Gracia [...] Oral, 2 times daily, Take with food Sigbmzm-Vnfhpajzbqw-Ddmbbpnkzp (Breztri Aerosphere) 160-9-4.8 MCG/ACT aerosol 2 puffs, [...] Date Abnormal CBC 07/30/2023 Anxiety and depression ([facility]/HCC) Carpal tunnel syndrome 2002 Chronic diarrhea Chronic shoulder pain 05/01/2023 Class 3 severe obesity without serious comorbidity with body mass index (BMI) of 45.0 to 49.9 in adult (CMS/HCC) 04/30/2023 Constipation Depression (CMS/HCC) Hot flashes 07/30/2023 Hyperlipidemia, acquired (CMS/HCC) 07/30/2023 Hypertension (CMS/HCC) Knee pain, left anterior Major depression (CMS/HCC) Morbid obesity with BMI of 40.0-44.9, adult ([facility]) Multiple sclerosis (CMS/HCC) Night sweats 07/30/2023 LORENZO [...] (BMI) of 45.0 to 49.9 in adult ([facility]) Diverticulitis - Primary Fluids, atb, fu if not better If any fever, chills or worsening in symptoms go to ER Relevant Medications amoxicillin-clavulanate (Augmentin) 875-125 MG tablet documented in this encounterSaint Luke's East HospitalNhhfbypryz74-10-9540 History of Present illness Narrative* Renuka Bui [...] Date Abnormal CBC 07/30/2023 Anxiety and depression ([facility]) Carpal tunnel syndrome 2002 Chronic diarrhea Chronic shoulder pain 05/01/2023 Class 3 severe obesity without serious comorbidity with body mass index (BMI) of 45.0 to 49.9 in adult ([facility]) 04/30/2023 Constipation Depression ([facility]) Hot flashes 07/30/2023 Hyperlipidemia, acquired ([facility]) 07/30/2023 Hypertension ([facility]) Knee pain, left anterior Major depression ([facility]) Morbid obesity with BMI of 40.0-44.9, adult ([facility]) Multiple sclerosis ([facility]) Night sweats 07/30/2023 LORENZO (obstructive sleep apnea) 07/30/2023 Pain of left middle finger Primary insomnia Rash Rectal burning Right knee pain, unspecified chronicity Sinusitis Stroke ([facility]) 07/30/2023 Urinary incontinence in female Vaginal discharge [...] 2 puffs, Inhalation, Every 6 hours PRN Baxlwep-Lcwzikndynm-Gthrvmzzvi (Breztri Aerosphere) 160-9-4.8 MCG/ACT aerosol 2 puffs, [...] Eliazar Brooks D.O. documented in this encounterSaint Luke's East HospitalAokmxnbcgx75-67-1120 Telephone encounter Note* Telephone Encounter - Michelle Lujan - 01/17/2024 12:20 PM EDT Called patient back to let her know that Jessica's preference is for the patient to remain at [facility] ifshe is to order the medication. Patient said she would establish care with local neurologist. [facility]08-30-2024 Miscellaneous Notes* Telephone Encounter - Michelle Lujan [...] patient: Self Return call phone number : [phone] Reason for call : Other : Brief description of concern :Please fax infusion orders to [phone] [facility]. documented in this encounterAcmc [facility]08-27-2024 Telephone encounter Note * Telephone Encounter - Miri Soni - 01/14/2024 2:09 PM EDT Kriss Call Name of caller : Anupama Vasquez Relationship to patient: Self Return call phone number : [phone] Reason for call : Other : Brief description of concern :Please fax infusion orders to [phone] [facility]. [facility] Work Phone: [phone] Telephone encounter Note* Telephone Encounter - She [...] to call if she changes her mind. [facility]08-01-2024 Miscellaneous Notes* Telephone Encounter - She Healy [...] she changes her mind. documented in this encounterAcmc Healthcare System04-19-2024 NoteHNO ID: [id number] Author: LASHAUN VASQUEZ PA-C Service: ? Author Type: Physician Screw Machine Operator Swiss Type Type: Progress Notes Filed: 09/06/2023 10:11 Note Text: SPINE SURGERY OUTPATIENT CONSULT This is a virtual visit using IDxom Video Visit. It required patient-provider interaction for the medical decision making as documented below. I have communicated my name and active licensure. The patient's identity and physical location were verified at the time of this visit. Either the patient or their legal pharmaceutical representative has been informed of the risks and benefits of -- and alternatives to -- treatment through a remote evaluation and consents to proceed with the evaluation remotely. SERVICE DATE: 09/06/2023 PCP: Valdez Acosta MD REFERRING PROVIDER: Jessica Clarke [address] [facility] [address] Consult requested for an opinion regarding the [...] in the past as well. Works with [employer] for her MS. Saw an outside orthopedic [...] Function Percentile 7 1 (more content not included)...[facility]04-19-2024 History of Present illness Narrative* Lashaun Vasquez PA-C - 09/06/2023 9:41 AM EDT SPINE SURGERY OUTPATIENT CONSULT This is a virtual visit using [employer] Zoom Video Visit. It required patient- provider interaction for the medical decision making as documented below. I have communicated my name and active licensure. The patient's identity and physical location wereverified at the time of this visit. Either the patient or their legal pharmaceutical representative has been informed of the risks and benefits of -- and alternatives to -- treatment through a remote evaluation andconsents to proceed with the evaluation remotely. SERVICE DATE: 09/06/2023 PCP: Valdez Acosta MD REFERRING PROVIDER: Jessica Clarke [phone] [facility] [phone] Consult requested for an opinion regarding the [...] in the past as well. Works with [employer] for her MS. Saw an outside orthopedic [...] DATA REVIEW [facility] records independently reviewed ASSESSMENT/PLAN (R29.550) Left arm weakness (primary encounter diagnosis) Virtual [...] TIME: 9:41 AM PAGER: documented in this encounterAcmc [facility] System04-09-2024 NoteHNO ID: [id number] Author: ANISHA SANCHEZ PA-C Service: ? Author Type: Physician Screw Machine Operator Swiss Type Type: Progress Notes Filed: 08/27/2023 11:37 Note [...] from ongoing conservative management. BMI 47.78 [facility] History of Present illness Narrative* [...] Vasquez Are you being referred by a [place] for Spine Health Provider or Pain Management [...] the facility where the MRI/CT/myelogram was completed: [facility] Address: [address] [place] [address] MRI/CT/myelogram viewable in [facility]: Yes If not, please provide [phone] to fax in imaging reports for review. [...] where the surgery was completed: Additional Comments [phone] (Home Phone) documented in this encounterAcmc Healthcare System04-04-2024 NoteHNO ID: [id number] Author: ?, ?, ? Service: ? Author [...] the MRI/CT/myelogram was completed: [facility] Address: [address] [place] [address] MRI/CT/myelogram viewable in [facility]: Yes If not, please provide [phone] to fax in imaging reports for review. [...] where the surgery was completed: Additional Comments [phone] (Home Phone)[facility]04-03-2024 Miscellaneous Notes* Telephone Encounter - Renuka Ellison - 08/21/2023 4:17 PM EDT Kriss Call Name of caller : Anupama Vasquez Relationship to patient: Self Return call phone number : [phone] Reason for call : Other : Brief [...] call to discuss further. documented in this encounterAcmc [facility] System02-28-2024 Miscellaneous Notes* Telephone Encounter - Elizabeth Victoria RN - 07/17/2023 9:04 AM EST Called patient, no answer. Message left indicating [employer] message would be sent with reason for [...] for Brain and Cervical documented in this encounterAcmc Healthcare System02-21-2024 History of Present illness Narrative* Paris Toledo [...] for internal providers or letter via the [employer] for external providers. SUBJECTIVE: Anupama Vasquez a 53 year old [facility] Pain [facility], accompanied by self only, [...] PT several years ago (+) relief [place] Alcohol Abuse - No Drug Abuse - [...] No history of dysuria, frequency or incontinence DIRECTOR OF STUDENT AID: Negative for abnormal vaginal bleeding, abnormal vaginal [...] supervised home exercise program (HEP): No 5. Wax Pourer: No Passive conservative therapy lasting 6 weeks [...] which included preparing to see the patient, ffkt-cy-pxeo patient care, completing clinical documentation, performing a medically appropriate examination, counseling and educating the patient/family/caregiver, ordering medications, tests, or p rocedures, and communicating with other HCPs (not separately reported). Paris Toledo DO July 10, 2023 documented in this encounterAcmc Healthcare System02-21-2024 NoteHNO ID: [id number] Author: PARIS TOLEDO DO Service: ? Author Type: Physician Type: Progress Notes Filed: 07/12/2023 11:26 Note Text: [facility] Initial Evaluation July 10, 2023 This appointment was requested by Jessica Clarke PA-C, for my medical opinion regarding the evaluation and management of the patient's Anupama Vasquez problems, and my final recommendations will be communicated to the requesting health care provider by way of the shared medical record for internal providers or letter via the [employer] for external providers. SUBJECTIVE: Anupama Vasquez a 53 year old presents to [facility], accompanied by self only, [...] (MS) PT several years ago (+) relief [facility] Alcohol Abuse - No Drug Abuse [...] No history of dysuria, frequency or incontinence DIRECTOR OF STUDENT AID: Negative for abnormal vaginal bleeding, abnormal vaginal discharge MUSCULOSKELETAL: Negative for joint pain or swelling, back pain or muscle pain. NEUROLOGIC:Negative for focal numbness or weakness, headaches and dizziness or syncope. SKIN:Negative for lesions, rash, and itching. PSYCHIATRIC: Negative for sleep disturbance, mood disorder and recent psychosocial stressors. [place] (more content not included)...[facility]02-07-2024 History of Present illness Narrative* Shaikh [...] 12:24 PM ESTAssociated Problem(s): COPD with exacerbation ([facility]) Patient reports cough, SOB, [...] No neurological symptoms. Stable. COPD with exacerbation ([facility]) Patient reports cough, SOB, [...] weeks (around 08/21/2023). documented in this encounterSaint Luke's East HospitalBqffqbmxlv10-26-2383 NoteHNO ID: [id number] Author: She Brand RN Service: ? Author [...] ; pt states she had her tubes tied.[facility]12-14-2023 History of Present illness Narrative* Jessica Clarke PA-C - 05/02/2023 7:30 AM EST Images from the original note were not included. [facility] FOR MULTIPLE SCLEROSIS FOLLOWUP/ESTABLISHED PATIENT VIRTUAL VISIT [...] modifying therapy INTERVAL HISTORY: Usual treating team: Luz/Vince I have communicated my name and active licensure. The patient's identity and physical location wereverified at the time of this visit. Either the patient or their legal pharmaceutical representative has been informed of the risks [...] Flowsheet Row Office Visit from 03/22/2022 in [facility] Office Visit from 11/14/2021 in [facility] from 09/15/2021 in [facility] Upper Extremity Domain T Score 32.58 [...] Flowsheet Row Office Visit from 03/22/2022 in [facility] Office Visit from 11/14/2021 in [facility] from 09/15/2021 in [facility] Sleep Domain T Score 61.04 -- [...] which included preparing to see the patient, alyf-hp-qptl patient care, completing clinical documentation, obtaining and/or reviewing separately obtained history, counseling and educating the patient/family/caregiver, ordering medications, manuel ts, or procedures, communicating with other HCPs (not separately reported), and communicating results to the patient/family/caregiver. The patient was discussed with Dr. Escobar prior to appointment. Jessica Clarke PA-C documented in this encounterAcmc [facility] System12-14-2023 NoteHNO ID: [id number] Author: Jessica Clarke PA-C Service: ? Author Type: Physician Screw Machine Operator Swiss Type Type: Progress Notes Filed: 05/02/2023 5:39 PM Note Text: [facility] MULTIPLE SCLEROSIS FOLLOWUP/ESTABLISHED PATIENT VIRTUAL VISIT PRINCIPAL [...] modifying therapy INTERVAL HISTORY: Usual treating team: Luz/Vince I have communicated my name and active licensure. The patient's identity and physical location were verified at the time of this visit. Either the patient or their legal pharmaceutical representative has been informed of the risks [...] Flowsheet Row Office Visit from 03/22/2022 in [facility] Office Visit from 11/14/2021 in [facility] from 09/15/2021 in [facility] Upper Extremity Domain T Score 32.58 -- 34 Lower Extremity Domain T Score 36.57 -- 37 Cognitive Function Domain T Score 38.32 39 41 Positive Affect Well Being T Score -- -- -- Ability To Participate In Social Roles T Score 29.36 39 43 Satisfaction With Social Roles T Score 40.46 -- 36 Neuro-QoL Symptoms (higher=worse symptoms) Flowsheet [facility] Office Visit from 03/22/2022 in [facility] Office Visit from 11/14/2021 in [facility] from 09/15/2021 in [facility] Sleep Domain T Score 61.04 -- [...] spent a total of (more content not included)...[facility] 04-18-2022 Evaluation note* Encounter Date Diagnosis Assessment Notes Treatment Notes Treatment Clinical Notes Mar, Change in bowel function (ICD-10 - R19.4) CONTINUE METAMUCIL DIRECTED RTO 1 [email or web address] Other 11-11-2022 Miscellaneous Notes* Telephone Encounter - Lily Monique - 03/30/2022 2:06 PM EST Patient is calling today and would like to inform that she has a new PCP. Would like to ask that Dr Acosta be removed. She now sees a Dr Fred Arteaga in [place]. Any questions please call patient at [phone] documented in this encounterAcmc [facility] System11-03-2022 History of Present illness Narrative* Jessica Clarke PA-C - 03/22/2022 12:40 PM EDT Images from the original note were not included. [facility] FOR MULTIPLE SCLEROSIS FOLLOWUP/ESTABLISHED PATIENT VISIT PRINCIPAL [...] modifying therapy INTERVAL HISTORY: Usual treating team: Luz/Vince The patient is accompanied by self. The [...] REVIEW OF SYSTEMS: Neuro-QoL Functions (higher=better functioning) [facility] Office Visit from 03/22/2022 in [facility] Office Visit from 11/14/2021 in [facility] from 09/15/2021 in [facility] Upper Extremity Domain T Score 32.58 -- 34 Lower Extremity Domain T Score 36.57 -- 37 Cognitive Function Domain T Score 38.32 39 41 Positive Affect Well Being T Score -- -- -- Ability To Participate In Social Roles T Score 29.36 39 43 Satisfaction With Social Roles T Score 40.46 -- 36 Neuro-QoL Symptoms (higher=worse symptoms) Flowsheet [facility] Office Visit from 03/22/2022 in [facility] Office Visit from 11/14/2021 in [facility] from 09/15/2021 in [facility] Sleep Domain T Score 61.04 -- 64 Fatigue Domain T Score 58.38 -- 65 Anxiety Domain T Score 58.73 -- 61 Depression Domain T Score 60.06 58 60 Stigma Domain T Score 58.45 -- 57 Emotional Behavior Dyscontrol T Score -- -- -- *NeuroQoL is a multi-domain patient-reported quality of life questionnaire. PHQ-9 [facility] from 09/15/2021 in [facility] Office Visit from 11/01/[facility] PHQ-9 Score 11 16 *PHQ-9 is a questionnaire for depressive symptoms, with scores 0-4 indicating none, 5-9 mild, 10-14moderate, 15-19 moderately severe, and 20-27 severe symptoms. PROMIS-[address] [facility] OT/PT/Speech Visit from 01/16/2022 in [facility] from 09/15/2021 in [facility] Global Physical Health T Score 32.4 [...] 5 Biceps 5 5 Triceps 5 5 Broomcorn Thresher 5 5 Dorsal interossei 5 5 Lower [...] and Stretching Follow-up: In 6 months at [facility] I spent a total of 30 minutes on the date of the service which included preparing to see the patient, [id number] patient care, completing clinical documentation, obtaining and/or reviewing separately obtained history, performing a medically appropriate examination, counseling and educating the pat ient/family/caregiver, ordering medications, tests, or procedures, and communicating results to thepatient/family/caregiver. Jessica Clarke PA-C The chart was reviewed for possible participation in the following studies:None documented in this encounterAcmc Healthcare System10-18-2022 History of Present illness Narrative* Lizbeth Blandon [...] Care Gap or Scheduling/Wellness visits Payer: Payor: [facility] MEDICAID / Plan: [facility] COMMUNITY PLAN MEDICAID OF [place] / Product [...] Message Sent to Practice: No Navigation Signature: Lzibeth Blandon LPN March 06, 2022 4:06 PM documented in this encounterAcmc Healthcare System09-26-2022 Miscellaneous Notes* Telephone Encounter - Jaycee Haley - 02/12/2022 9:08 AM EDT Called pt LVM to see about setting up pt and psycology. 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 X Agree Disagree 2. In a [...] on the criteria that this test assesses, Anuapma Vasquez is not qualified to work under [...] 8 units: 113-127 mins Physical Performance Test (93173) Skilled Intervention: Neurologically-based functional capacity evaluation specific to the diagnosisof Multiple Sclerosis. Proper administration and selection of physical performance test based on clinical presentation, deficits, and needs. SUN Smalls/L documented in this encounterAcmc Healthcare System07-27-2022 Evaluation note* Encounter Date Diagnosis Assessment Notes Treatment Notes Treatment Clinical Notes Nov, Change in bowel function (ICD-10 - R19.8) ENCOURAGED METAMUCIL CAPSULES DAILY. Nov, Tubular adenoma (ICD-10 - D36.9) WILL REPEAT COLON IN 5 YEARS Nov, Diverticulosis (ICD-10 - K57.90) Nov, Hemorrhoids (ICD-10 - K64.9) [email or web address] Other 06-28-2022 History of Present illness Narrative* Sarthak Escobar MD, PhD - 11/14/2021 8:31 AM EDT Images from the original note were not included. [facility] FOR MULTIPLE SCLEROSIS FOLLOWUP/ESTABLISHED PATIENT VISIT PRINCIPAL [...] modifying therapy INTERVAL HISTORY: Usual treating team: Luz/Vince The patient is accompanied by self. The [...] (higher=better functioning) Office Visit from 11/14/2021 in [facility] from 09/15/2021 in [facility] OfficeVisit from 11/01/2020 in [facility] Upper Extremity Domain T Score 34 30 Lower Extremity Domain T Score 37 40 Cognitive Function Domain T Score 39 41 36 Positive Affect Well Being T Score Ability To Participate In Social Roles T Score 39 43 46 Satisfaction With Social Roles T Score 36 39 Neuro-QoL Symptoms (higher=worse symptoms) Office Visit from 11/14/2021 in [facility] from 09/15/2021 in [facility] OfficeVisit from 11/01/2020 in [facility] Sleep Domain T Score 64 64 Fatigue Domain T Score 65 69 Anxiety Domain T Score 61 65 Depression Domain T Score 58 60 66 Stigma Domain T Score 57 63 Emotional Behavior Dyscontrol T Score *NeuroQoL is a multi-domain patient-reported quality of life questionnaire. PHQ-9 [facility] from 09/15/2021 in [facility] Office Visit from 11/01/2020 in [facility] PHQ-9 Score 11 16 *PHQ-9 is a questionnaire for depressive symptoms, with scores 0-4 indicating none, 5-9 mild, 10-14moderate, 15-19 moderately severe, and 20-27 severe symptoms. PROMIS-10 [facility] from 09/15/2021 in [facility] Office Visit from 11/01/2020 in [facility] Global Physical Health T Score 32.4 [...] 5 Biceps 5 5 Triceps 5 5 Broomcorn Thresher 5 5 Dorsal interossei 5 5 Lower [...] Lymph 1.00 - 4.00 k/uL 0.60 (L) Carson% % 12.0 Abs Carson <0.87 k/uL 0.74 Eosin% % 2.4 Abs [...] short-term follow-up to document stability. ASSESSMENT/PLAN: Anupama F Lonz is a 51 year old female with Multiple Sclerosis. Patient is on Ocrevus for DMT. Reports good tolerance and compliance. Last infusion 09/18/21. Labs reviewed and acceptable. Brain MRI from today reviewed and shows 1 new lesion that is slightly atypical for demyelination. Reviewed with Dr. Escobar and will check JCV today and will perform 7T brain MRI in 3 months at [place]. Will hold next infusion until reviewing MRI. [...] and Stretching Follow-up: In 3 months at [place] with [facility] I spent a total of 40 minutes on the date of the service which included preparing to see the patient, ykjr-[id number] patient care, completing clinical documentation, obtaining and/or reviewing separately obtained history, performing a medically appropriate examination, counseling and educating the pat ient/family/caregiver, ordering medications, tests, or procedures, independently interpreting results (not separately reported) and communicating results to the patient/family/caregiver. The patient was discussed with Dr. Escobra. Jessica Clarke PA-C [facility] STAFF PHYSICIAN NOTE OF PERSONAL [...] Sarthak Escobar MD, PhD Associate Staff Neurologist [facility] Multiple Sclerosis documented in this encounterAcmc Healthcare System06-28-2022 History of Present illness Narrative* RT [place](R) [...] 2021 TIME: 7:43 AM documented in this encounterAcmc Healthcare System04-29-2022 History of Present illness Narrative* Jessica Clarke PA-C - 09/15/2021 11:19 AM EDT Images from the original note were not included. [facility] MULTIPLE SCLEROSIS FOLLOWUP/ESTABLISHED PATIENT VIRTUAL VISIT PRINCIPAL NEUROLOGIC DIAGNOSIS: multiple sclerosis DISEASE SUMMARY Date of onset: October 2011 Date of diagnosis of MS: June 2012 Disease course at onset: Relapsing-Remitting Current disease course: Relapsing-Remitting Previous disease therapies: Tecfidera (02/04/2013 - July 2016) - stopped due to persistent lymphopenia Auramilagio August 2016- Apr 2020 Current disease therapy: Ocrevus (08/15/2020 first infusion) Most recent MRI brain: 07/15/2020 Most recent MRI cervical spine: 02/10/15 Most recent MRI thoracic spine: NA CSF: NA JCV serology result and date: NA VZV serology result and date: NA AQP4-IgG: NA MOG-IgG: NA CHIEF COMPLAINT: Follow-up on MS disease modifying therapy INTERVAL HISTORY: Usual treating team: Luz/Vince Today's visit is being completed virtually; pt [...] - mood worse Fred Gracia is new MANAGER [facility]TER[employer]ISE PCP - changed anxiety and depression meds [...] locally. Asking about switching infusions to [facility] REVIEW OF SYSTEMS: Mood: PHQ9 responses reviewed and appear below Bladder: colonoscopy recently Pain:reviewed on nursing intake documentation Neuro-QoL Functions (higher=better functioning) Appointment from 09/15/2021 in [facility] Office Visit from 11/01/2020 in [facility] Office Visit from 07/31/2019 in [facility] Upper Extremity Domain T Score 34 30 41.73 Lower Extremity Domain T Score 37 40 41.61 Cognitive Function Domain T Score 41 36 45 Positive Affect Well Being T Score 40.79 Ability To Participate In Social Roles T Score 43 46 39.92 Satisfaction With Social Roles T Score 36 39 43.36 Neuro-QoL Symptoms (higher=worse symptoms) Appointment from 09/15/2021 in [facility] Office Visit from 11/01/2020 in [facility] Office Visit from 07/31/2019 in [facility] Sleep Domain T Score 64 64 [...] available 4. Consult OT - [facility] at [place] 5. Continue with PCP as planned I spent a total of 20 minutes on the date of the service which included preparing to see the patient, [id number] patient care, completing clinical documentation, obtaining and/or reviewing separately obtained history, counseling and educating the patient/family/caregiver, ordering medications, manuel ts, or procedures and communicating results to the patient/family/caregiver. Jessica Clarke PA-C documented in this encounterAcmc Healthcare System04-19-2022 [facility] Evaluation note* Encounter Date Diagnosis Assessment Notes Treatment Notes Treatment Clinical Notes Jul, Constipation (ICD-10 - K59.00) Jul, Rectal bleeding (ICD-10 - K62.5) Jul, Rectal pain (ICD-10 - K62.89) Sample of Recticare cream given to patient Jul, Change in stool caliber (ICD-10 - R19.4) [email or web address] Other Evaluation + Plan note Future Appointments Appointment Date:02/10/2024 03:00:00 PM Scheduled Provider: Location:[facility] Surgical Services Appointment Type:Surgery FT [facility] Evaluation + Plan note Future Appointments Appointment Date:02/17/2025 08:30:00 AM Scheduled Provider:Silvia Bustos PA-C Location:[facility] Appointment Type:URO Office Visit [facility] evaluation noteNo assessment information available [facility] Work Phone: Evaluation note* Diagnosis Multiple sclerosis, relapsing-remitting (HCC) Multiple sclerosis documented in this encounter [facility] SystemEvaluation [facility]* Diagnosis Multiple sclerosis (HCC)- Primary Multiple sclerosis Multiple sclerosis, relapsing-remitting (HCC) Multiple sclerosis documented in this encounter [facility] noteNo IssueNationNewport RECUPYL Other Evaluation note* Diagnosis Multiple sclerosis, relapsing-remitting (HCC) Multiple sclerosis documented in this encounter [facility] note* Diagnosis Multiple sclerosis, relapsing-remitting (HCC)- Primary Multiple sclerosis documented in this encounter [facility] note* Diagnosis Encounter for screening mammogram for breast cancer documented in this encounter [facility] note* Diagnosis Multiple sclerosis, relapsing-remitting (HCC) Multiple sclerosis documented in this encounter [facility] note* Diagnosis Multiple sclerosis (HCC)- Primary Multiple sclerosis documented in this encounter [facility] note* Diagnosis Multiple sclerosis, relapsing-remitting (HCC)- Primary Multiple sclerosis [facility]* Diagnosis Multiple sclerosis, relapsing-remitting (HCC)- Primary Multiple sclerosis documented in this encounter [facility] note* Diagnosis Encounter for screening mammogram for breast cancer documented in this encounter [facility] note* Diagnosis Multiple sclerosis (HCC)- Primary Multiple sclerosis documented in this encounter [facility]* Diagnosis Multiple sclerosis (CMS/HCC)- Primary Multiple sclerosis Primary hypertension (CMS/HCC) Unspecified essential hypertension Anxiety and depression (CMS/HCC) COPD with exacerbation (CMS/HCC) Non-recurrent acute suppurative otitis media of left ear without spontaneous rupture of tympanic membrane [facility]* Diagnosis Cervical disc disorder with radiculopathy- Primary Brachial neuritis or radiculitis nos Cervical stenosis of spine Spinal stenosis in cervical region Chronic neck pain Cervicalgia documented in this encounter [facility]* Diagnosis Multiple sclerosis (HCC)- Primary Multiple sclerosis documented in this encounter [facility]* Diagnosis Cervical stenosis of spine- Primary Spinal stenosis in cervical region documented in this encounter [facility]* Diagnosis Left arm weakness- Primary Other musculoskeletal symptoms referable to limbs documented in this encounter [facility]* Diagnosis Multiple sclerosis (HCC)- Primary Multiple sclerosis Vitamin D deficiency Unspecified vitamin D deficiency documented in this encounter [facility]* Diagnosis S/P arthroscopy of left shoulder- Primary [facility] Diagnosis S/P arthroscopy of left shoulder documented in this encounter [facility]* Diagnosis Class 3 severe [...] left shoulder- Primary documented in this encounter [facility]* Diagnosis Class 3 severe [...] obesity type (CMS/HCC) documented in this encounter [facility]* Diagnosis Class 3 severe [...] Pressure injury of left buttock, stage 2 ([facility]) [facility] anxiety disorder with panic attacks Multiple sclerosis ([facility]) Multiple sclerosis [facility] Diagnosis Brain tumor ([facility])- Primary Neoplasm of unspecified nature of brain Double vision Diplopia [facility]* Diagnosis Glioblastoma (CMS-HCC)- Primary Malignant neoplasm of brain, unspecified site [facility]* Diagnosis GBM (glioblastoma multiforme) (CMS-HCC)- Primary Malignant neoplasm of brain, unspecified site [facility]* Diagnosis GBM (glioblastoma multiforme) (CMS-HCC)- Primary Malignant neoplasm of brain, unspecified site documented [facility]* Diagnosis GBM (glioblastoma multiforme) (CMS-HCC)- Primary Malignant neoplasm of brain, unspecified site documented [facility] this encounter [facility]* Diagnosis GBM (glioblastoma multiforme) (CMS-HCC)- Primary Malignant neoplasm of brain, unspecified site Thrombocytopenia Unspecified thrombocytopenia documented in this [facility]* Diagnosis GBM (glioblastoma multiforme) (CMS-HCC)- Primary Malignant neoplasm of brain, unspecified site Thrombocytopenia Unspecified thrombocytopenia documented in this encounter [facility]* Diagnosis GBM (glioblastoma multiforme) (CMS-HCC)- Primary Malignant neoplasm of brain, unspecified site documented in this encounter [facility]* Diagnosis GBM (glioblastoma multiforme) (CMS-HCC) Malignant neoplasm of brain, unspecified site documented in this encounter [facility] Narrative - Reported* Type Description Date Surgical History ectopic Surgical History tubal ligation Surgical History caprpal tunnel release [email or web address] Other History general Narrative - Reported* Type Description Date Surgical History ectopic Surgical History tubal ligation Surgical History caprpal tunnel release Hospitalization History see above [email or web address] Other Hospital course Narrative No data available for this section [facility] Hospital Discharge instructions No data available for this section [facility] InstructionsNot on filedocumented in this encounter [...] note No data available for this section [facility] Reason for referral (narrative)* Diagnostic Procedure Only (Routine) - Pending Review Specialty Diagnoses / Procedures Referred By Atilio t Referred To Contact [facility] Diagnoses Encounter for screening mammogram for breast cancer Procedures ALIYA SCREENING SCREENING MAMMOGRAPHY BI 2-VIEW BREAST INC CAD Valdez Acosta MD [address] [place] [address] [facility] [address] [place] [phone] Referral ID Status Reason Start Date Expiration Date Visits Requested Visits Authorized [id number] Pending Review Auto-Generat ed Referral 11/15/2021 12/15/2022 1 1 [facility] Diagnostic Procedure Only (Routine) - Pending Review Specialty Diagnoses / Procedures Referred By Contcheryl t Referred To Contact [facility] Diagnoses Encounter for screening mammogram for breast cancer Procedures ALIYA SCREENING SCREENING MAMMOGRAPHY BI 2-VIEW BREAST INC CAD Valdez Acosta MD [address] [place] [address] [facility] [address] [place] [address] Referral ID Status Reason Start Date Expiration Date Visits Requested Visits Authorized [id number] Pending Review Auto-Generat ed Referral 10/17/2022 11/16/2023 1 1 [facility]Reason for referral (narrative)* Consultation (Routine) Specialty Diagnoses / Procedures Referred By Contcheryl t Referred To Contact [facility] [address] [phone] Aron Chinchilla MD [address] [place] [address] Referral ID Status Reason Start Date Expiration Date V isits Requested Visits Authorized Specialty Services Required [facility]Reason for referral (narrative)No reason for referral information [facility]Mer[facility] Work Phone: Reason for visit NarrativeREFERRED BY FRED GRACIA FOR CONSTIPATION, (REFERRAL NOTE RECEIVED)[email or web address] Other Reason for visit Narrative* Rehabilitation - Outpatient (Routine) - Authorized Specialty Diagnoses / Procedures Referred By Contac t Referred To Contact Physical Therapy Diagnoses S/P arthroscopy of left shoulder Procedures [place] OFFICE/OUTPATIENT NEW HIGH MDM 60 MINUTES Eliazar Brooks, DO [address] [place] [address] Phone: tel: fax: Aria Kumar PT Referral ID Status Reason Start Date Expiration Date Visits Requested Visits Authorized [id number] Authorized Specialty Services Required 04/10/2024 12 12 [facility] Healthcare Summary Purpose Family History No [...] Multiple sclerosis, relapsing-remitting (HCC) Procedures CONSULT TO CABINETMAKER MAINTENANCE OCCUPATIONAL THERAPY EVAL HIGH COMPLEX 60 MINS Jessica Clarke PA-C [address] [address] [facility] [address] [address] Referral ID Status Reason Start Date Expiration Date Visits Requested Visits Authorized [id number] Pending Review Auto-Generat ed Referral 09/15/2021 09/15/2022 1 1 Specialty Diagnoses / Procedures Referred By Atilio carbone Referred To Contact MR IMAGING Diagnoses Multiple sclerosis, relapsing-remitting (HCC) Procedures MRI BRAIN WO/W IVCON MRI BRAIN BRAIN STEM W/O W/CONTRAST MATERIAL Jessica Clarke PA-C [address] [place] [address] Mr Imaging Referral ID Status Reason Start Date Expiration Date Visits Requested Visits Authorized [id number] Pending Review Auto-Generat ed Referral 09/15/2021 10/15/2022 1 1 Referral ID Status Reason Start Date Expiration Date V isits Requested Visits Authorized [id number] Closed Auto-Generate d Referral 09/15/2021 11/25/2021 1 1 Specialty Diagnoses / Procedures Referred By Contac t Referred To Contact MR IMAGING Diagnoses Multiple sclerosis, relapsing-remitting (HCC) Procedures MRI BRAIN WO/W IVCON MRI BRAIN BRAIN STEM W/O W/CONTRAST MATERIAL Sarthak Escobar MD, PhD [address] [place] [address] Mr Imaging Referral ID Status Reason Start Date Expiration Date Visits Requested Visits Authorized [id number] Pending Review Auto-Generat ed Referral 11/14/2021 12/14/2022 1 1 Specialty Diagnoses / Procedures Referred By Contac t Referred To Contact MR IMAGING Diagnoses Multiple sclerosis, relapsing-remitting (HCC) Procedures MRI CERVICAL SPINE WO/W IVCON MRI SPINAL CANAL CERVICAL W/O & W/CONTR MATRL Jessica Clarke PA-C [address] [place] [address] Mr Imaging Referral ID Status Reason Start Date Expiration Date Visits Requested Visits Authorized [id number] Pending Review Auto-Generat ed Referral 08/30/2022 09/29/2023 1 1 Referral ID Status Reason Start Date Expiration Date Visits Requested Visits Authorized [id number] Pending Review Auto-Generat ed Referral 08/30/2022 09/29/2023 1 1 Specialty Diagnoses / Procedures Referred By Contac t Referred To Contact [facility] Diagnoses Cervical disc disorder with radiculopathy Procedures CONSULT TO PHYSICAL THERAPY PHYSICAL THERAPY EVALUATION HIGH COMPLEX [address] [place], [address] [address] [address] [facility] [place] [address] [place] [address] Referral ID Status Reason Start Date Expiration Date Visits Requested Visits Authorized [id number] Pending Review Auto-Generat ed Referral 07/10/2023 07/09/2024 1 1 Specialty Diagnoses / Procedures Referred By Contac t Referred To Contact MR IMAGING Diagnoses Multiple sclerosis (HCC) Procedures MRI BRAIN WO/W IVCON MRI BRAIN BRAIN STEM W/O W/CONTRAST MATERIAL Jessica Clarke PA-C [address] [place] [address] Mr Imaging [place] [address] Referral ID Status Reason Start Date Expiration Date Visits Requested Visits Authorized [id number] Pending Review Auto-Generat ed Referral 07/16/2023 08/14/2024 1 1 Specialty Diagnoses / Procedures Referred By Contac t Referred To Contact Diagnoses Cervical stenosis of spine Procedures CONSULT TO SPINE SURGERY OFFICE/OUTPATIENT [facility] MDM 60 MINUTES Jessica Clarke PA-C [address] [place] [address] Referral ID Status Reason Start Date Expiration Date Visits Requested Visits Authorized [id number] Authorized PCP Requested Referral 08/22/2023 08/21/2024 1 1 Specialty Diagnoses / Procedures Referred By Contac t Referred To Contact MR IMAGING Diagnoses Left arm weakness Procedures MRI CERVICAL SPINE WO IVCON MRI SPINAL CANAL CERVICAL W/O CONTRAST MATRL Lashaun Vasquez PA-C [address] [id number] [facility] [place] [address] Referral ID Status Reason Start Date Expiration Date Visits Requested Visits Authorized [id number] Pending Review Auto-Generat ed Referral 09/06/2023 10/05/2024 1 1 Specialty Diagnoses / Procedures Referred By Contac t Referred To Contact [facility] Diagnoses Left arm weakness Procedures EMG(NEURO/NI) NERVE CONDUCTION STUDIES 9-10 STUDIES Lashaun Vasquez PA-C [address] [place] [address] Neurological Ethel [address] [place] [address] Referral ID Status Reason Start Date Expiration Date Visits Requested Visits Authorized [id number] Pending Review Auto-Generat ed Referral 09/06/2023 09/05/2024 1 1 Specialty Diagnoses / Procedures Referred By Contac t Referred To Contact XR IMAGING Diagnoses Left arm weakness Procedures XR CERV OTHER 4V AP/LAT/FLX/EXT RADEX SPINE CERVICAL 4 OR 5 VIEWS Lashaun Vasquez PA-C [address] [place] [address] [place] [address] Referral ID Status Reason Start Date Expiration Date Visits Requested Visits Authorized [id number] Pending Review Auto-Generat ed Referral 09/06/2023 10/05/2024 1 1 Specialty Diagnoses / Procedures Referred By Contac t Referred To Contact Physical Therapy Diagnoses S/P arthroscopy of left shoulder Procedures [place] OFFICE/OUTPATIENT NEW HIGH MDM 60 MINUTES Eliazar Brooks, DO [address] [place] [address] Aria Kumar PT Referral ID Status Reason Start Date Expiration Date Visits Requested Visits Authorized [id number] Pending Review Specialty Services Required 02/25/2024 08/23/2024 [...] Hyperlipemia November 19, 2024 2:21p m Hypertension Gail 3rd, 2025 2:21p m Multiple sclerosis November 19, 2024 2:21p m Chief Complaint Admit Date Unknown October 17, 2024 9:45a m CKD 4 November 19, 2024 2:21p m Unknown November 27, 2024 8:36 pm Reason for Visit Admit Date BRANDON (acute kidney injury) November 19, 2024 2:21pm GBM (glioblastoma multiforme) November 19, 2024 2:21pm Hyperlipemia November 19, 2024 2:21p m Hypertension November 19, 2024 2:21p m Multiple sclerosis November 19, 2024 2:21p m Chief Complaint Admit Date Unknown October 17, 2024 9:45a m CKD 4 November 19, 2024 2:21p m Unknown November 27, 2024 8:36 pm Pt has cancer Dr wants to discuss EGD/Co lonoscopy December 29, 2024 1:50pm Medications Administered Section Inactive Administered Medications - [...] content) DATE CREATED AUTHOR 11/12/2017 [facility] DATE CREATED AUTHOR AUTHOR'S ORGANIZ ATION 11/13/2017 [facility] DATE CREATED AUTHOR AUTHOR'S ORGANIZ ATION 10/02/2022 [facility] DATE CREATED AUTHOR AUTHOR'S ORGANIZ ATION 12/21/2023 [facility] DATE CREATED AUTHOR AUTHOR'S ORGANIZ ATION 02/07/2024 [facility] DATE CREATED AUTHOR AUTHOR'S ORGANIZ ATION 08/19/2024 [facility] DATE CREATED AUTHOR AUTHOR'S ORGANIZ ATION 09/03/2024 [facility] DATE CREATED AUTHOR AUTHOR'S ORGANIZ ATION 09/24/2024 [facility] DATE CREATED AUTHOR AUTHOR'S ORGANIZ ATION 11/25/2024 [facility] DATE CREATED AUTHOR AUTHOR'S ORGANIZ ATION 12/02/2024 [facility] DATE CREATED AUTHOR AUTHOR'S ORGANIZ ATION 12/21/2024 [facility] DATE CREATED AUTHOR AUTHOR'S ORGANIZ ATION 12/26/2024 [facility] DATE CREATED AUTHOR AUTHOR'S ORGANIZ ATION 01/12/2025 [facility] Medical History (unrecognize d section and content) Includes: Medical History in patient's chartNo Medical History Recorded Evaluations & Outcomes (unre cognized section and content) Includes: Evaluations & Outcomes for active GoalsNo Outcomes Recorded Care Teams (unrecognized sec tion and content) Team Status: Inactive Member Role Status Dates Services [facility] Primary Care Provider Active Liyah Rosa MD Attending Provider Active Team Status: Active Member Role Status Dates Services [facility] Primary Care Provider 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 Specialty Start Date End Date Valdez Acosta MD [address] [place] [address] PCP - General Internal Medicine 11/01/20 [employer] Relationship Specialty Start Date End Date Valdez Acosta MD [address] [facility] [place] [address] PCP - General Internal Medicine 11/01/20 [employer] S[employer]ings Relationship Specialty Start Date End Date Valdez Acosta MD [address] [place] [address] PCP - General Internal Medicine 11/01/20 [employer] Relationship Specialty Start Date End Date Valdez Acosta MD [address] [place] [address] PCP - General Internal Medicine 11/01/20 [employer] Relationship Specialty Start Date End Date Valdez Acosta MD [address] [place] [address] PCP - General Internal Medicine 11/01/20 [employer] Relationship Specialty Start Date End Date Valdez Acosta MD [address] [place] [address] PCP - General Internal Medicine 11/01/20 [employer] Relationship Specialty Start Date End Date Valdez Acosta MD [address] [place] [address] PCP - General Internal Medicine 11/01/20 [employer] Relationship Specialty Start Date End Date aVldez Acosta MD [address] [place] [address] PCP - General Internal Medicine 11/01/20 [employer] Relationship Specialty Start Date End Date Valdez Acosta MD [address] [place] [address] PCP - General Internal Medicine 11/01/20 [employer] Relationship Specialty Start Date End Date Valdez Acosta MD [address] [place] [address] PCP - General Internal Medicine 11/01/20 [employer] Relationship Specialty Start Date End Date Valdez Acosta MD [address] [place] [address] PCP - General Internal Medicine 11/01/20 [employer] Relationship Specialty Start Date End Date Valdez Acosta MD [address] [place] [address] PCP - General Internal Medicine 11/01/20 [employer] Relationship Specialty Start Date End Date Valdez Acosta MD [address] [place] [address] PCP - General Internal Medicine 11/01/20 [employer] Relationship Specialty Start Date End Date Valdez Acosta MD [address] [place] [address] PCP - General Internal Medicine 11/01/20 [employer]ings Relationship Specialty Start Date End Date Maxim Lanza MD [address] [place] [address] PCP - General Family Medicine 04/22/23 Fred Gracia NP [address] [place] [address] Nurse Practitioner Family Medicine 05/20/22 [employer]ings Relationship Specialty Start Date End Date Maxim Lanza MD [address] [place] [address] PCP - General Family Medicine 04/22/23 Fred Gracia, KIRK [address] [place] [address] Nurse Practitioner Family Medicine 05/20/22 [employer]ings Relationship Specialty Start Date End Date Valdez Acosta MD [address] [place] [address] PCP - General Internal Medicine 11/01/20 [employer]ings Relationship Specialty Start Date End Date Valdez Acosta MD [address] [place] [address] PCP - General Internal Medicine 11/01/20 [employer] Relationship Specialty Start Date End Date Valdez Acosta MD [address] [place] [address] PCP - General Internal Medicine 11/01/20 [employer] Relationship Specialty Start Date End Date Valdez Acosta MD [address] [place] [address] PCP - General Internal Medicine 11/01/20 [employer]ings Relationship Specialty Start Date End Date Valdez Acosta MD [address] [place] [address] PCP - General Internal Medicine 11/01/20 [employer]ings Relationship Specialty Start Date End Date Valdez Acosta MD [address] [place] [address] PCP - General Internal Medicine 11/01/20 [employer]ings Relationship Specialty Start Date End Date Valdez Acosta MD [address] [place] [address] PCP - General Internal Medicine 11/01/20 [employer] Relationship Specialty Start Date End Date Maxim Lanza MD [address] [place] [address] PCP - General Family Medicine 07/15/23 Fred Gracia NP [address] [place] [address] Primary Care Provider Family Medicine 05/20/22 Sk[employer] S[employer]ings Relationship Specialty Start Date End Date Maxim Lanza MD [address] [place] [address] PCP - General Family Medicine 07/15/23 Fred Gracia NP [address] [place] [address] Primary Care Provider Family Medicine 05/20/22 [employer]ings Relationship Specialty Start Date End Date Maxim Lanza MD [address] [place] [address] PCP - General Family Medicine 07/15/23 Fred Gracia NP [address] [place] [address] Primary Care Provider Family Medicine 05/20/22 Sk[employer]ings Relationship Specialty Start Date End Date Maxim Lanza MD [address] [place] [address] PCP - General Family Medicine 07/15/23 Fred Gracia NP [address] [place] [address] Primary Care Provider Family Medicine 05/20/22 Skiver Sock [employer]ings Relationship Specialty Start Date End Date Maxim Lanza MD [address] [place] [address] PCP - General Family Medicine 07/15/23 Fred Gracia NP [address] [place] [address] Primary Care Provider [facility] Medicine 05/20/22 Skiver Sock Linings Relationship Specialty Start Date End Date Maxim Lanza MD [address] [place] [address] PCP - General Family Medicine 07/15/23 Fred Gracia NP [address] [place] [address] Primary Care Provider [facility] Medicine 05/20/22 Skiver Sock [employer]ings Relationship Specialty Start Date End Date Maxim Lanza MD [address] [place] [address] PCP - General Family Medicine 07/15/23 Fred Gracia NP [address] [place] [address] Primary Care Provider [facility] Medicine 05/20/22 Skiver S[employer]ings Relationship Specialty Start Date End Date Maxim Lanza MD [address] [place] [address] PCP - General Family Medicine 07/15/23 Fred Gracia NP [address] [place] [address] Primary Care Provider Family Medicine 05/20/22 [employer] Relationship Specialty Start Date End Date Maxim Lanza MD [address] [place] [address] PCP - General Family Medicine 07/15/23 Fred Gracia NP [address] [place] [address] Primary Care Provider Family Medicine 05/20/22 Skiver S[employer]ings Relationship Specialty Start Date End Date Maxim Lanza MD [address] [place] [address] PCP - General Family Medicine 07/15/23 Fred Gracia NP [address] [place] [address] Primary Care Provider Family Medicine 05/20/22 Skiver Sock [employer]ings Relationship Specialty Start Date End Date Maxim Lanza MD [address] [place] [address] PCP - General Family Medicine 07/15/23 Fred Gracia NP [address] [place] [address] Primary Care Provider Family Medicine 05/20/22 Skiver Sock Linings Relationship Specialty Start Date End Date Maxim Lanza MD [address] [place] [address] PCP - General Family Medicine 07/15/23 Fred Gracia NP [address] [place] [address] Primary Care Provider Family Medicine 05/20/22 Skiver S[employer]ings Relationship Specialty Start Date End Date Maxim Lanza MD [address] [place] [address] PCP - General Family Medicine 07/15/23 Fred Gracia NP [address] [place] [address] Primary Care Provider Family Medicine 05/20/22 Skiver S[employer]ings Relationship Specialty Start Date End Date Maxim Lanza MD [address] [place] [address] PCP - General Family Medicine 07/15/23 Fred Gracia NP [address] [place] [address] Primary Care Provider Family Medicine 05/20/22 Skiver S[employer]ings Relationship Specialty Start Date End Date Maxim Lanza MD [address] [place] [address] PCP - General Family Medicine 07/15/23 Fred Gracia NP [address] [place] [address] Primary Care Provider Family Medicine 05/20/22 Skiver Sock [employer]ings Relationship Specialty Start Date End Date Maxim Lanza MD [address] [place] [address] PCP - General Family Medicine 07/15/23 Fred Gracia NP [address] [place] [address] Primary Care Provider Family Medicine 05/20/22 Skiver S[employer]ings Relationship Specialty Start Date End Date Maxim Lanza MD [address] [place] [address] PCP - General Family Medicine 07/15/23 Fred Gracia NP [address] [place] [address] Primary Care Provider Family Medicine 05/20/22 Skiver Sock [employer]ings Relationship Specialty Start Date End Date Maxim Lanza MD [address] [place] [address] PCP - General Family Medicine 07/15/23 Fred Gracia NP [address] [place] [address] Primary Care Provider Family Medicine 05/20/22 Skiver Sock [employer]ings Relationship Specialty Start Date End Date Maxim Lanza MD [address] [place] [address] PCP - General Family Medicine 07/15/23 Fred Gracia NP [address] [place] [address] Primary Care Provider Family Medicine 05/20/22 Skiver Sock Linings Relationship Specialty Start Date End Date Valdez Acosta MD [address] [place], [place] [phone] PCP - General Internal Medicine 11/01/20 Sherrie Smith PA-C [facility] [place], [place] [id number] Hris Manager Internal Medicine 04/26/24 Elizabeth Lopez APRN.[facility] [address] [place] [address] [id number] Hris Manager Family Medicine 04/26/24 Skiver Sock Linings Relationship Specialty Start Date End Date Maxim Lanza MD [address] [place] [address] PCP - General Family Medicine 07/15/23 Fred Gracia, KIRK [address] [place] [address] Primary Care Provider Family Medicine 05/20/22 Skiver Sock [employer]ings Relationship Specialty Start Date End Date Maxim Lanza MD [address] [place] [address] PCP - General Family Medicine 07/15/23 Fred Gracia, KIRK [address] [place] [address] Primary Care Provider Family Medicine 05/20/22 Skiver Sock [employer]ings Relationship Specialty Start Date End Date Maxim Lanza MD [address] [place] [address] PCP - General Family Medicine 07/15/23 Fred Gracia NP [address] [place] [address] Primary Care Provider Family Medicine 05/20/22 Skiver Sock Linings Relationship Specialty Start Date End Date Maxim Lanza MD [address] [place] [address] PCP - General Family Medicine 07/15/23 Fred Gracia NP [address] [place] [address] Primary Care Provider Family Medicine 05/20/22 Skiver Sock Linings Relationship Specialty Start Date End Date Maxim Lanza MD [address] [place] [address] PCP - General Family Medicine 07/15/23 Fred Gracia NP [address] [place] [address] Primary Care Provider Family Medicine 05/20/22 Skiver Sock Linings Relationship Specialty Start Date End Date Maxim Lanza MD [address] [place] [address] PCP - General Family Medicine 07/15/23 Fred Gracia NP [address] [place] [address] Primary Care Provider Family Medicine 05/20/22 Skiver Sock Linings Relationship Specialty Start Date End Date Maxim Lanza MD [address] [place] [address] PCP - General Family Medicine 07/15/23 Fred Gracia NP [address] [place] [address] Primary Care Provider Family Medicine 05/20/22 Skiver S[employer] Relationship Specialty Start Date End Date Maxim Lanza MD [address] [place] [address] PCP - General Family Medicine 07/15/23 Fred Gracia NP [address] [place] [address] Primary Care Provider Family Medicine 05/20/22 Skiver Sock Linings Relationship Specialty Start Date End Date Maxim Lanza MD [address] [place] [address] PCP - General Family Medicine 07/15/23 Fred Gracia NP [address] [place] [address] Primary Care Provider Family Medicine 05/20/22 Skiver Sock [employer]ings Relationship Specialty Start Date End Date Maxim Lanza MD [address] [place] [address] PCP - General Family Medicine 07/15/23 Fred Gracia NP [address] [place] [address] Primary Care Provider [facility] Medicine 05/20/22 Skiver Sock Linings Relationship Specialty Start Date End Date Maxim Lanza MD [address] [place] [address] PCP - General Family Medicine 07/15/23 Fred Gracia NP [address] [place] [address] Primary Care Provider [facility] 05/20/22 Team Status: Inactive Member Role Status Dates Tripp Gruber MD Attending Provider Active St art: August 22, 2024 End: August 22, 2024 Skiver Sock Linings Relationship Specialty Start Date End Date Maxim Lanza MD [address] [place] [address] PCP - General Family Medicine 07/15/23 Fred Gracia NP [address] [place] [address] Primary Care Provider [facility] Medicine 05/20/22 Skiver Sock Linings Relationship Specialty Start Date End Date Fred Gracia, [employer] APPLICATOR-GEOTECHNICIAL PROPERTIES TECHNICIAN [address] [place] [address] PCP - General Nurse Practitioner 08/28/24 Skiver Sock Linings Relationship Specialty Start Date End Date Maxim Lanza MD [address] [place] [address] PCP - General Family Medicine 07/15/23 Fred Gracia NP [address] [place] [address] Primary Care Provider Family Medicine 05/20/22 Skiver Sock Linings Relationship Specialty Start Date End Date Fred Gracia [employer] APPLICATOR-GEOTECHNICIAL PROPERTIES TECHNICIAN PCP - General Nurse Practitioner 08/28/24 Skiver Sock Linings Relationship Specialty Start Date End Date Fred Gracia, STU[employer] APPLICATOR-GEOTECHNICIAL PROPERTIES TECHNICIAN PCP - General Nurse Practitioner 08/28/24 Skiver Sock Linings Relationship Specialty Start Date End Date Maxim Lanza MD [address] [place] [address] PCP - General Family Medicine 07/15/23 Fred Gracia NP [address] [place] [address] Primary Care Provider [facility] Medicine 05/20/22 Team Status: Inactive Member Role Status Dates Alonzo Holguin MD Attending Provider Active Sta rt: October 17, 2024 End: October 17, 2024 Skiver Sock Linings Relationship Specialty Start Date End Date Maxim Lanza MD [address] [place] [address] PCP - General Family Medicine 07/15/23 Fred Gracia NP [address] [place] [address] Primary Care Provider [facility] Medicine 05/20/22 Skiver Sock Linings Relationship Specialty Start Date End Date Fred Gracia [facility] PCP - General Nurse Practitioner 08/28/24 Skiver Sock Linings Relationship Specialty Start Date End Date Fred Gracia [facility] PCP - General Nurse Practitioner 08/28/24 Skiver Sock Linings Relationship Specialty Start Date End Date Fred Gracia [facility] PCP - General Nurse Practitioner 08/28/24 Skiver Sock Linings Relationship Specialty Start Date End Date Fred Gracia [facility] PCP - General Nurse Practitioner 08/28/24 Skiver Sock Linings Relationship Specialty Start Date End Date Fred Gracia [facility] PCP - General Nurse Practitioner 08/28/24 Skiver Sock Linings Relationship Specialty Start Date End Date Fred Gracia [facility] PCP - General Nurse Practitioner 08/28/24 Skiver Sock Linings Relationship Specialty Start Date End Date Fred Gracia [facility] PCP - General Nurse Practitioner 08/28/24 Team Status: Active Member Role Status Dates NON STAFF Primary Care Provider Active Team Status: Inactive Member Role Status Dates Storm Chapman MD Attending Provider Active Start : November 19, 2024 End: November 19, 2024 NON STAFF Primary Care Provider Active Start: November 19, 2024 End: November 19, 2024 Skiver Sock Linings Relationship Specialty Start Date End Date Fred Gracia, [facility] PCP - General Nurse Practitioner 08/28/24 Skiver Sock Linings Relationship Specialty Start Date End Date Fred Gracia [facility] PCP - General Nurse Practitioner 08/28/24 Skiver Sock Linings Relationship Specialty Start Date End Date Fred Gracia [facility] PCP - General Nurse Practitioner 08/28/24 Team Status: Inactive Member Role Status Von Villafana DO Attending Provider Act dallin Start: November 27, 2024 End: November 27, 2024 Skiver Sock Linings Relationship Specialty Start Date End Date Fred Gracia [facility] PCP - General Nurse Practitioner 08/28/24 Skiver Sock Linings Relationship Specialty Start Date End Date Fred Gracia [facility] PCP - General Nurse Practitioner 08/28/24 Skiver Sock Linings Relationship Specialty Start Date End Date Fred Gracia [facility] PCP - General Nurse Practitioner 08/28/24 Skiver Sock Linings Relationship Specialty Start Date End Date Fred Gracia [facility] PCP - General Nurse Practitioner 08/28/24 Skiver Sock Linings Relationship Specialty Start Date End Date Fred Gracia [facility] PCP - General Nurse Practitioner 08/28/24 Team Status: Inactive Member Role Status Dates Stephanie Aguillon DO Attending Provider Active St art: December 29, 2024 End: December 29, 2024 NON STAFF Primary Care Provider Active Start: December 29, 2024 End: December 29, 2024 Skiver Sock Linings Relationship Specialty Start Date End Date HarveybereniceFred perry APRNR[facility]INA PCP - General Nurse Practitioner 08/28/24 Skiver Sock Linings Relationship Specialty Start Date End Date [facility] PCP - General Nurse Practitioner 08/28/24 Goals [...] any alcohol or drug abuse patient.[facility] System[facility] the event this information is protected by the Federal Confidentiality of Alcohol and Drug Abuse Patient Records regulations: The Federal rules restrict any use of the information to criminally investigate or prosecute any alcohol or drug abuse patient.[facility] SystemIn the event this information is protected by the Federal Confidentiality of Alcohol and Drug Abuse Patient Records regulations: The Federal rules restrict any use of the information to criminally investigate or prosecute any alcohol or drug abuse patient.[facility] SystemIn the event this information is protected by the Federal Confidentiality of Alcohol and Drug Abuse Patient Records regulations: The Federal rules restrict any use of the information to criminally investigate or prosecute any alcohol or drug abuse patient.[facility] SystemIn the event this information is protected by the Federal Confidentiality of Alcohol and Drug Abuse Patient Records regulations: The Federal rules restrict any use of the information to criminally investigate or prosecute any alcohol or drug abuse patient.[facility] SystemIn the event this information is protected by the Federal Confidentiality of Alcohol and Drug Abuse Patient Records regulations: The Federal rules restrict any use of the information to criminally investigate or prosecute any alcohol or drug abuse patient.[facility] SystemIn the event this information is protected by the Federal Confidentiality of Alcohol and Drug Abuse Patient Records regulations: The Federal rules restrict any use of the information to criminally investigate or prosecute any alcohol or drug abuse patient.[facility] SystemIn the event this information is protected by the Federal Confidentiality of Alcohol and Drug Abuse Patient Records regulations: The Federal rules restrict any use of the information to criminally investigate or prosecute any alcohol or drug abuse patient.[facility] SystemIn the event this information is protected by the Federal Confidentiality of Alcohol and Drug Abuse Patient Records regulations: The Federal rules restrict any use of the information to criminally investigate or prosecute any alcohol or drug abuse patient.[facility] SystemIn the event this information is protected by the Federal Confidentiality of Alcohol and Drug Abuse Patient Records regulations: The Federal rules restrict any use of the information to criminally investigate or prosecute any alcohol or drug abuse patient.[facility] SystemIn the event this information is protected by the Federal Confidentiality of Alcohol and Drug Abuse Patient Records regulations: The Federal rules restrict any use of the information to criminally investigate or prosecute any alcohol or drug abuse patient.[facility] SystemIn the event this information is protected by the Federal Confidentiality of Alcohol and Drug Abuse Patient Records regulations: The Federal rules restrict any use of the information to criminally investigate or prosecute any alcohol or drug abuse patient.[facility] SystemIn the event this information is protected by the Federal Confidentiality of Alcohol and Drug Abuse Patient Records regulations: The Federal rules restrict any use of the information to criminally investigate or prosecute any alcohol or drug abuse patient.[facility] SystemIn the event this information is protected by the Federal Confidentiality of Alcohol and Drug Abuse Patient Records regulations: The Federal rules restrict any use of the information to criminally investigate or prosecute any alcohol or drug abuse patient.[facility] SystemIn the event this information is protected by the Federal Confidentiality of Alcohol and Drug Abuse Patient Records regulations: The Federal rules restrict any use of the information to criminally investigate or prosecute any alcohol or drug abuse patient.[facility] SystemIn the event this information is protected by the Federal Confidentiality of Alcohol and Drug Abuse Patient Records regulations: The Federal rules restrict any use of the information to criminally investigate or prosecute any alcohol or drug abuse patient.[facility] SystemIn the event this information is protected by the Federal Confidentiality of Alcohol and Drug Abuse Patient Records regulations: The Federal rules restrict any use of the information to criminally investigate or prosecute any alcohol or drug abuse patient.[facility] SystemIn the event this information is protected by the Federal Confidentiality of Alcohol and Drug Abuse Patient Records regulations: The Federal rules restrict any use of the information to criminally investigate or prosecute any alcohol or drug abuse patient.[facility] SystemIn the event this information is protected by the Federal Confidentiality of Alcohol and Drug Abuse Patient Records regulations: The Federal rules restrict any use of the information to criminally investigate or prosecute any alcohol or drug abuse patient.[facility] SystemIn the event this information is protected by the Federal Confidentiality of Alcohol and Drug Abuse Patient Records regulations: The Federal rules restrict any use of the information to criminally investigate or prosecute any alcohol or drug abuse patient.[facility] SystemIn the event this information is protected by the Federal Confidentiality of Alcohol and Drug Abuse Patient Records regulations: The Federal rules restrict any use of the information to criminally investigate or prosecute any alcohol or drug abuse patient.[facility] SystemIn the event this information is protected by the Federal Confidentiality of Alcohol and Drug Abuse Patient Records regulations: The Federal rules restrict any use of the information to criminally investigate or prosecute any alcohol or drug abuse patient.[facility] SystemIn the event this information is protected by the Federal Confidentiality of Alcohol and Drug Abuse Patient Records regulations: The Federal rules restrict any use of the information to criminally investigate or prosecute any alcohol or drug abuse patient.[facility] SystemIn the event this information is protected by the Federal Confidentiality of Alcohol and Drug Abuse Patient Records regulations: The Federal rules restrict any use of the information to criminally investigate or prosecute any alcohol or drug abuse patient.[facility] SystemIn the event this information is protected by the Federal Confidentiality of Alcohol and Drug Abuse Patient Records regulations: The Federal rules restrict any use of the information to criminally investigate or prosecute any alcohol or drug abuse patient.[facility] SystemIn the event this information is protected by the Federal Confidentiality of Alcohol and Drug Abuse Patient Records regulations: The Federal rules restrict any use of the information to criminally investigate or prosecute any alcohol or drug abuse patient.[facility] SystemIn the event this information is protected by the Federal Confidentiality of Alcohol and Drug Abuse Patient Records regulations: The Federal rules restrict any use of the information to criminally investigate or prosecute any alcohol or drug abuse patient.[facility] SystemIn the event this information is protected by the Federal Confidentiality of Alcohol and Drug Abuse Patient Records regulations: The Federal rules restrict any use of the information to criminally investigate or prosecute any alcohol or drug abuse patient.[facility] SystemIn the event this information is protected by the Federal Confidentiality of Alcohol and Drug Abuse Patient Records regulations: The Federal rules restrict any use of the information to criminally investigate or prosecute any alcohol or drug abuse patient.[facility] Reason for Visit (unrecogniz ed section and content) Reason Comments IV Medication Administration Ocrevus Specialty Diagnoses / Procedures Referred By Contac t Referred To Contact Diagnoses Multiple sclerosis (HCC) G35 (ICD-10-CM) - Multiple sclerosis (HCC) Procedures INJECTION, OCRELIZUMAB, 1 MG J2350 - INJECTION, OCRELIZUMAB, 1 MG Sarthak Escobar MD, PhD [address] [place] [address] [facility] [address] [place] [id number] Referral ID Status Reason Start Date Expiration Date V isits Requested Visits Authorized [id number] Pending Review 12/06/2020 03/22/2023 4 4 Reason Comments Established Patient Follow-Up Reason Comments Infusion Ocrevus Referral ID Status Reason Start Date Expiration Date V isits Requested Visits Authorized [id number] Pending Review 12/06/2020 03/01/2022 2 2 Specialty Diagnoses / Procedures [facility]erred To Contact MR IMAGING Diagnoses Multiple sclerosis, relapsing-remitting (HCC) Procedures MRI BRAIN WO/W IVCON MRI BRAIN BRAIN STEM W/O W/CONTRAST MATERIAL Jessica Clarke PA-C [address] [place] [address] Mr Imaging Referral ID Status Reason Start Date Expiration Date V isits Requested Visits Authorized [id number] Closed Auto-Generate d Referral 09/15/2021 11/25/2021 1 1 Reason Comments Established Patient Follow-Up Reason Comments [facility] Specialty Diagnoses / Procedures [facility] To [facility] Diagnoses Multiple sclerosis, relapsing-remitting (HCC) Procedures CONSULT TO [employer] MAINTENANCE OCCUPATIONAL THERAPY EVAL HIGH COMPLEX 60 MINS Jessica Clarke PA-C [address] [place] [address] [facility] [address] [place] [address] Referral ID Status Reason Start Date Expiration Date V isits Requested Visits Authorized [id number] Closed Auto-Generate d Referral 09/15/2021 05/19/2022 1 1 Reason Comments Appointment Called pt LVM to see about setting up pt and psycology. Reason Comments Established Patient Follow-Up Reason Comments Patient Update Reason Comments URI Reason Comments Consult Cervical pain Specialty Diagnoses / Procedures Referred By Contac t Referred To Contact [facility] Diagnoses Cervical stenosis of spine Procedures [facility] OFF[facility]/OUTPATIENT [facility] 60 MINUTES Jessica Clarke PA-C [address] [place] [address] Referral ID Status Reason Start Date Expiration Date V isits Requested Visits Authorized [id number] Closed PCP Requested Referral 06/13/2023 06/12/2024 1 1 Reason Comments Orders Order for MRI needed for Brain and Cervical Reason Comments Patient Question Reason Comments Established Patient Reason Comments Orders Reason Comments Post-op PO Lt shoulder scope prob RCR TSCNCO 02/10/24 Specialty Diagnoses / Procedures Referred By Contac t Referred To Contact Physical Therapy Diagnoses S/P arthroscopy of left shoulder Procedures [place] OFFICE/OUTPATIENT [facility] 60 MINUTES Eliazar Brooks, DO [address] [place] [address] Aria Kumar PT Referral ID Status Reason Start Date Expiration Date Visits Requested Visits Authorized [id number] Pending Review Specialty Services Required 02/25/2024 08/23/2024 [...] altered mental status type Xena Larios MD [address] [place] [address] Phone: tel: fax: Referral ID Status Reason Start Date Expiration Date Visits Re quested Visits Authorized [id number] 1 1 Reason Onset Date Comments incision 09/29/2024 Reason Comments Follow-up 6 week follow up - t umor resection Reason Onset Date Comments office note 11/11/2024 Reason Onset Date Comments Received referral Radiation consult lvm 11/12/19 Reason Comments New Patient Specialty Diagnoses / Procedures Referred By Contac t Referred To Contact Oncology / Hematology and Oncology Diagnoses Brain tumor ([facility]) Double vision Reji Garcia, [employer] APPLICATOR-GEOTECHNICIAL PROPERTIES TECHNICIAN [address] [facility] [address] [place] [address] Phone: tel: fax: Alcon Khan MD [address] [place] [address] Phone: tel: fax: Referral ID Status Reason Start Date Expiration Date Visits Requested Visits Authorized [id number] Pending Review Specialty Services Required 11/10/2024 11/10/2025 1 1 Reason Comments Follow-up Reason Onset Date Comments Prior Authorization 01/05/2025 TEMOZOLOMIDE Scheduled Active and Recently Administ ered Medications [...] Taylor RN)1440 (Given - Provider: Lida Wright RN)2118 (Given - Provider: Elma Moreno, MOE) 0554 (Given - Provider: Elma Moreno, RN)151 (Given - Provider: Taylor Ayala RN)2057 (Given [...] use. 0530 (New Bag - Provider: Regina Tyalor RN)0545 (Stop Bag - Provider: Regina Taylor RN) levETIRAcetam (KEPPRA) tablet 500 mg 500 mg, oral, 2 times daily, First dose on Sat09/27/24 at 1730, Look-alike/sound-alike medication - verify indication for use. 170 (Given - Provider: Lida Wright RN) 08 (Given - Provider: Taylor Ayala, MOE)2053 (Given - Provider: Elma Moreno, MOE) 0900 (Due)2100 (Due) metoprolol tartrate (LOPRESSOR) tablet 25 mg [...] Moreno, MOE) 828 (Given - Provider: Taylor Ayala RN)2053 (Given - Provider: Elma Moreno, MOE) 0900 (Due)2100 (Due) mirtazapine (REMERON CANDI-TAB) disintegrating tablet 15 mg 15 mg, oral, Nightly, First dose (after last modification) on Maribell 09/24/24 at 2200 2118 (Given - Provider: Elma Moreno, MOE) 2054 (Given - Provider: Elma Moreno, MOE) 2199 (Due) sennosides-docusate sodium (SENOKOT-S) 8.6-50 mg 2 tablet 2 tablet, oral, Nightly, First dose (after last modification) on Maribell 09/24/24 at 2200, HOLD for greater than 2 bowel movements in the past 24 hours 2118 (Given - Provider: Elma Moreno RN) 2053 (Given - Provider: Elma Moreno, MOE) 2199 (Due) Continuous Medication Order 09/27/2024 09/28/2024 09/29/2024 dextrose 2.5 % in water, 1,000 mL infusion 50-150 mL/hr, intravenous, Continuous, Starting on 09/19/24 at 0300, For Sodium level 160 mmol/L or jacpcpw=415 mL/hr; 155 to 159 mmol/L=125 mL/hr; 150-154 [...] 1 dose 1444 (Given - Provider: Lorna Dias, [facility]-MUNICIPAL ENGINEER) barium sulfate (VARIBAR THIN HONEY) 40 %(w/v), 29% (w/w)(1500 CPS) suspension 5 mL 5 mL, oral, Once in imaging, contrast, Radiology, Starting on 09/28/24 at 1438, For 1 dose barium sulfate (VARIBAR THIN) 81 % (w/w) powder 148 g (COMPLETED) 148 g, oral, Once in imaging, contrast, barium sulfate (VARIBAR THIN) 40 % (w/v) powder, Starting on 09/28/24 at 1438, For 1 dose 1444 (Given - Provider: Lorna Dias, [facility]-MUNICIPAL ENGINEER) bisacodyL (DULCOLAX) suppository 10 mg 10 mg, [...] BE BASED ON THE PRIMARY CLINICAL RECORDS. [facility] [email or web address] [facility]. provides no warranty or guarantee of the accuracy or completeness of information in this document.
--- NOTE | 2025-01-12 12:12 | XR_ITS ---
The [address] [address] Patient Name: NITHYA VASQUEZ MRN: [id number] date: 1970 Sex: F Assigned Patient Location: [facility] Current Patient Location: [facility] Accession/Order Number: [id number] Exam Date: 01/12/2025 12:00 Report Date: 01/12/2025 12:16 At the request of: RIDDHI IBANEZ Procedure: XR lumbar spine 2-3V LUMBAR SPINE - 3 views COMPARISON: CT 08/22/2024 CLINICAL DATA: Acute back pain. No injury. AP as well as lateral lumbar and lumbosacral views were obtained. No acute compression fractures are noted. There is continued anterolisthesis of L4 and L5 approximately 5 mm. There is also minimal retrolisthesis of L5 on S1. There is disc space narrowing at L4-5 and the lumbosacral junction. Tiny endplate spurs are noted. Lower lumbar facet disease is seen. The SI joints are intact. There are no paraspinal soft tissue abnormalities. Splenic granulomas are incidentally seen. XR/XR lumbar spine 2-3V IMPRESSION: DEGENERATIVE CHANGES, GREATER DISTALLY DESCRIBED. NO ACUTE BONY FINDINGS. Impression dictated by: Samira Martinez M.D. 01/12/2025 12:16 PM Dictation Location: [place] [address] Electronically authenticated by: [id number] Date: 01/12/2025 12:16
== END 2025-01-12 11:43 | disposition home or self-care (01) ==
PROVIDERS: PCP Nurse Practitioner
DX: M54.50 Low back pain, unspecified (principal); M51.369 Other intervertebral disc degeneration, lumbar region without mention of lumbar back pain or lower extremity pain
CPT/HCPCS: 72100

== ENCOUNTER 2025-04-14 13:23 | Outpatient (REF) | payer MEDICARE, MEDICAID, SELFPAY ==
[2025-04-14 14:42] LABS: Glucose Urine UA NEGATIVE (NEGATIVE)
[2025-04-14 15:04] LABS: Cast Seen? NONE SEEN #/LPF (NONE SEEN); Crystals Seen? Seen #/HPF (None Seen); Urine Culture Indicated YES-FRMC
[2025-04-14 15:30] LABS: Hematocrit 44.5 % (36.0-48.0); Hemoglobin 13.8 g/dL (12.0-16.0); Immature Granulocytes Abs Auto 0.04 10^3/uL (0.00-0.03); Immature Granulocytes Pct Auto 0.4 % (0.0-0.5); Lymphocytes Absolute Auto 1.1 10^3/uL (1.2-3.8); Mean Corpuscular HGB Conc 31.0 g/dL (29.9-35.2); Mean Corpuscular Hemoglobin 29.6 pg (26.7-34.0); Mean Corpuscular Volume 95.3 fL (81.0-99.0); Platelet Count 205 10^3/uL (150-450); Red Blood Count 4.67 10^6/uL (4.20-5.40); White Blood Count 8.9 10^3/uL (4.0-11.0)
[2025-04-14 15:35] LABS: Anion Gap 10.5; Blood Urea Nitrogen 17.0 mg/dL (7.0-18.0); Calcium 9.1 mg/dL (8.5-10.1); Carbon Dioxide 29.5 mmol/L (21.0-32.0); Chloride 103 mmol/L (98-107); Estimated GFR (African America >60 (>=60 mL/min/1.73m^2); Estimated GFR (Non-African Ame 54 (>=60 mL/min/1.73m^2); Glucose 126 mg/dL (74-106); Potassium 4.0 mmol/L (3.5-5.1); Sodium 139 mmol/L (136-145)
== END 2025-04-14 13:24 | disposition home or self-care (01) ==
LOC: LAB 13:23
PROVIDERS: PCP Nurse Practitioner; Visit Provider Family Medicine
DX: R41.82 Altered mental status, unspecified (principal)
CPT/HCPCS: 36415; 80048; 81001; 85025; 87086

== ENCOUNTER 2025-04-21 12:58 | Emergency (ER) | payer MEDICARE, MEDICAID, SELFPAY ==
--- OUTSIDE RECORDS SUMMARY | 2025-04-14 19:25 | XMS_ITS | Continuity of Care Document ---
Author Organization [facility] Address [address] [place] [address] Phone Care Team Providers Care Director Of Sales And Marketing Name Role Phone NON STAFF Primary Care Provider Unavailabl Rio Adam MD Attending Provider [phone] Care Teams Patient Care Team Team Status: Active Member Role/Relationship Status Dates NON STAFF Primary Care Provider Active Patient Care Team Team Status: Active Member Role/Relationship Status Dates NON STAFF Primary Care Provider Active Start: April 14, 2025 Rio Ennis MDAttending ProviderActiveStart: April 14, 2025 Allergies, Adverse Reactions, Alerts Allergen Type Severity Reaction Last Updated Verified Status No Known Allergies Allergy Unknown January 14, 2025 12:45pmYesActive Social History Smoking Status Status Start Date End Date Date of Observa tion Ex-smoker (finding) November 19, 2024 3:16pm Observation Status Observation Response Date of Response Legal Sex Female (finding) [facility] Family History Relationship Condition Age at Onset Recorded Date/T alethea father Malignant neoplasm of rectum Unknown motherHypertensionUnknownCerebrovascular accident (CVA)UnknownbrotherDiabetes mellitusUnknownHeart diseaseUnknownsisterDiabetes mellitusUnknownfatherDeceased UnknownmotherDeceasedUnknown Problems Active Problems Problem Diagnosis/Recorded Date Onset Date Stat us BRANDON (acute kidney injury) November 19, 2024 7:59am Unknow n Active GBM (glioblastoma multiforme) November 23, 2024 11:01pm U nknown Active Hyperlipemia September 05, 2021 7:27am Unknown Acti ve Multiple sclerosis September 05, 2021 7:27am Unknown Active History of colon polyps December 29, 2024 2:22pm Unkno wn Active Hypertension September 05, 2021 7:27am Unknown Acti ve Medications Medication Status Dose Units Route Directions Qty Days Refills S tart Date Stop Date End Date Reason(s) Instructions Adherence Atorvastatin 40 mg tablet Discontinued 40 MG PO B edtime September 04, 2021 11:00pmJuly 2024 2:15pmAmitriptyline 25 mg tablet Ttwvednrhahv50OYHKIaaajszBtlre 2021 11:00pmJuly 2024 2:15pmLisinopril 10 mg clnggvWztskmduwwvu09RDWYDiutkIxiyh 2021 11:00pmJuly 2024 2:15pm Fluoxetine 20 mg zcgodevOeregofeujwk07FIVGAqafcLxuoq 2021 11:00pmJuly 2024 2:15pmOcrelizumab (Ocrevus) 30 mg/mL WgdcgnevYoacsbothusr698HORNSQPUZ 6 MONTHSApril 2021 11:00pmJuly 2024 2:15pmMethenamine Hippurate 1 gram jwbufdVmpcnf1MXBOAhszr dailyAugust 2024 11:00pmUnknownFerrous Sulfate 325 mg (65 mg iron) tablet,delayed release (DR/EC)Ygmpci425QHVAYoylu dailyAugust 2024 11:00pmUnknownMetoprolol Tartrate 25 mg ywkgijDazcuy55LVMBOhmhh daily December 28, 2024 11:00pmUnknownPotassium Chloride 20 mEq tablet extended releaseDiscontinuedMEQPOAugust 2024 11:00pmAugust 2024 12:51pm Potassium Chloride 20 mEq tablet extended tyegjasAdwlsa57ZMQOUEwhlBlsgxs 2024 12:50pmUnknownBumetanide 2 mg xgnqvnCmmkwtyzvrwq2AZPQGbqokHknz 2024 11:00pmAugust 2024 1:00pmAlbuterol Sulfate 2.5 mg /3 mL (0.083 %) solution for nebulizationActive2.5MGINHALATIONEvery 4 hours as neededJuly 2024 11:00pmUnknownTrazodone 50 mg dcejrnTmlvow46JCWJArwys at bedtime as neededJuly 2024 11:00pmUnknownLevetiracetam 500 mg pbveujDhkwmw266JPLUDydrx dailyJuly 2024 11:00pmUnknownSennosides-Docusate Sodium (Senna Plus) 8.6-50 mg tablet Hbifsb3ADL-JIFRLGldth at bedtimeJuly 2024 11:00pmUnknownMetoprolol Succinate 100 mg tablet extended release 24 zmWnspvhjayfmx643JADPVsyycVihq 2024 11:00pmAugust 2024 1:03pmPotassium Chloride 10 mEq tablet extended puaqztyYjsadcqblhrs16IHSBNLhsrmRqwh 2024 11:00pmAugust 2024 1:04pm Zinc Oxide (Endit (Zinc Oxide)) 20 % zfowbbjbKodvztcnqloh4EIWIWTIZMTAHQTmmj times daily as neededJuly 2024 11:00pmAugust 2024 1:04pmDocusate Sodium (Colace) 100 mg rlxnpjwZagjkm268WBWZAmgsn dailyJuly 2024 11:00pm UnknownMirtazapine 15 mg bdexytSkzfzx12HLRPZkwaf at bedtimeJuly 2024 11:00pmUnknownLevofloxacin 500 mg zbqpkpCzkuthiipuse664ZBPCSvxglDkoe 2024 11:00pmAugust 2024 1:05pmAcetaminophen 325 mg yugczrmLqomdv427TPIMBgthh 6 hours as neededJuly 2024 11:00pmUnknownMelatonin 5 mg abeieeVohbzk2CIBW Daily at bedtime as neededJuly 2024 11:00pmUnknownAmino Acids-Protein Hydrolys (Pro-Stat Sugar Free) 15-100 gram-kcal/30 mL rzjelnCyvrlptmqezy3JICSWE Twice dailyJuly 2024 11:00pmAugust 2024 12:59pmHydrocodone- Acetaminophen 5-325 mg jwitxsKhkwqm5EFWWCWfdkv 8 hours as jjgffe9Vukang 2024 11:00pmUnknownBuspirone 7.5 mg tabletActive7.5MGPOTwice dailyAugust 2024 11:00pmUnknownInsulin Lispro 100 unit/mL insulin kucViahvy7dhrsors scale doseSUBCUTUse as DirectedAugust 2024 11:00pmUnknownCholecalciferol (Vitamin D3) 25 mcg (1,000 unit) nbtlpsIiivzp6475KROFVBJtdidMmayva 2024 11:00pmUnknownSaliva Stimulant Comb. No.3 (Biotene Moisturizing Mouth) spray,non-ajyasuzLhnunx1ASQHUHFVSYMP MEM4-8 TIMES PER DAY as neededAugust 2024 11:00pmwhile awakeUnknownGlucagon Hcl (Glucagon (Hcl) Emergency Kit) 1 mg recon ioftFayyzv6LHIBTPIWZ29H as neededAugust 2024 11:00pmuntil target blood sugar attainedUnknown Immunizations Immunization Event Date Not Given Reason Dose Number Docketing Specialist Lot Number Reason(s) Given Vaccine Information Statement (VIS) Detail Administration Location COVID-19 Ad26.COV2.S (Yoomly) July 28, 2020 COVID-19 mRNA-1273 (CrossReader)May 18, 2021 Relevant Diagnostic Tests and/or Laboratory Data Laboratory Results Test Collection Date/Time Result Date/Time Result Interpretation Reference Range Result Comment Performing Site Urine Microscopic Review April 14, 2025 1:00pm No vember 2024 1:00pm YES Anion GapNov2024 2:42pmNovember 2024 2:42pm10.5Basophils # (Auto)April 14, 2025 2:42pmNovember 2024 2:42pm0.0 10 3/uL0.0-0.1 Urine BilirubinNov2024 1:00pmNovember 2024 1:00pmNEGATIVE NEGATIVEBUN/Creatinine RatioNovember 2024 2:42pmNovember 2024 2:42pm 16.2Basophils (%) (Auto)April 14, 2025 2:42pmNovember 2024 2:42pm0.3 %0.2-2.0Urine Occ[facility]20[facility] 1:00pmApril 14, 2025 1:00pm LARGEAbnormal (applies to non-numeric results)NEGATIVEBlood Urea Nitrogen April 14, 2025 2:42pmNov2024 2:42pm17.0 mg/dL7.0-18.0 Eosinophils # (Auto)April 14, 2025 2:42pmNov2024 2:42pm0.1 10 3/uL0.0-0.7Urine AppearanceEcu Health Medical Center2024 1:00pmNov2024 1:00pm CLEARCLEARCalcium LevelEcu Health Medical Center2024 2:42pmApril 14, 2025 2:42pm9.1 mg/dL8.5-10.1Eosinophils (%) (Auto)April 14, 2025 2:42pmNov2024 2:42pm1.6 %0.9-7.0Urine ColorEcu Health Medical Center2024 1:00pmApril 14, 2025 1:00pmLT. YELLOWYELLOWChloride LevelEcu Health Medical Center2024 2:42pmApril 14, 2025 2:14bu009 mmol/O68-186KirfifuwguFseshkiz 26th, 2025 2:42pmApril 14, 2025 2:42pm44.5 %36.0-48.0Urine Glucose (UA)April 14, 2025 1:00pmApril 14, 2025 1:00pmNEGATIVE mg/dLNEGATIVECarbon Dioxide LevelEcu Health Medical Center2024 2:42pmNov2024 2:42pm29.5 mmol/L21.0-32.0HemoglobinEcu Health Medical Center2024 2:42pmApril 14, 2025 2:42pm13.8 g/dL12.0-16.0Urine KetonesBaptist Health [facility] 2024 1:00pmNov2024 1:00pmNEGATIVE mg/dLNEGATIVECreatinine April 14, 2025 2:42pmApril 14, 2025 2:42pm1.05 mg/dLAbove high normal 0.55-1.02Immature Granulocyte # (Auto)April 14, 2025 2:42pmNov2024 2:42pm0.04 10 3/uLAbove high normal0.00-0.03Urine Leukocyte Esterase April 14, 2025 1:00pmNov2024 1:00pmMODERATEAbnormal (applies to non-numeric results)NEGATIVEEstimated GFR ()April 14, 2025 2:42pmApril 14, 2025 2:42pm>60>=60 mL/min/1.73m 2Immature Granulocyte % (Auto)April 14, 2025 2:42pmApril 14, 2025 2:42pm0.4 %0.0-0.5Urine NitriteApril 14, 2025 1:00pmApril 14, 2025 1:00pmPOSITIVEAbnormal (applies to non-numeric results)NEGATIVEEstimated GFR (Non- April 14, 2025 2:42pmApril 14, 2025 2:80jq98Uhshj low normal>=60 mL/min/1.73m 2Lymphocytes # (Auto)April 14, 2025 2:42pmApril 14, 2025 2:42pm1.1 10 3/uLBelow low normal1.2-3.8Urine pHApril 14, 2025 1:00pm April 14, 2025 1:00pm6.05.0-9.0Glucose LevelApril 14, 2025 2:42pm April 14, 2025 2:01bx015 mg/dLAbove high eefxem72-895Stmoqnlogvz (%) (Auto) April 14, 2025 2:42pmApril 14, 2025 2:42pm12.6 %Below low normal 20.5-60.0Urine ProteinApril 14, 2025 1:00pmApril 14, 2025 1:00pm30 mg/dLAbnormal (applies to non-numeric results)NEG/TRACEPotassium LevelApril 14, 2025 2:42pmApril 14, 2025 2:42pm4.0 mmol/L3.5-5.1Mean Corpuscular HemoglobinApril 14, 2025 2:42pmApril 14, 2025 2:42pm29.6 pg26.7-34.0 Urine Specific GravityApril 14, 2025 1:00pmApril 14, 2025 1:00pm1.015 1.005-1.025Sodium LevelApril 14, 2025 2:42pmApril 14, 2025 2:32vo769 mmol/D925-895Fsnz Corpuscular Hemoglobin ConcentApril 14, 2025 2:42pm April 14, 2025 2:42pm31.0 g/dL29.9-35.2Urine UrobilinogenApril 14, 2025 1:00pmApril 14, 2025 1:00pm0.2 EU/dL0.2-1.0Mean Corpuscular Volume April 14, 2025 2:42pmApril 14, 2025 2:42pm95.3 fL81.0-99.0Monocytes # (Auto)April 14, 2025 2:42pmApril 14, 2025 2:42pm1.1 10 3/uLAbove high normal0.3-0.8Monocytes (%) (Auto)April 14, 2025 2:42pmApril 14, 2025 2:42pm12.1 %Above high normal1.7-12.0Mean Platelet VolumeApril 14, 2025 2:42pmApril 14, 2025 2:42pm11.1 fL9.5-13.5Neutrophils # (Auto)April 14, 2025 2:42pmApril 14, 2025 2:42pm6.5 10 3/uL1.4-6.5Neutrophils (%) (Auto)April 14, 2025 2:42pmApril 14, 2025 2:42pm73.0 %43.0-75.0 Platelet CountApril 14, 2025 2:42pmApril 14, 2025 2:65ve629 10 3/uL 150-450Red Blood CountApril 14, 2025 2:42pmApril 14, 2025 2:42pm4.67 10 6/uL4.20-5.40Red Cell Distribution WidthApril 14, 2025 2:42pmNov2024 2:42pm14.6 %11.0-15.0Corrected White Blood CountApril 14, 2025 2:42pmNov2024 2:42pm8.9 10 3/uL4.0-11.0 Advance Directives Advance Directive Response Recorded Date/ Time Advance Directives No September 01 022 7:00am Insurance Providers Guarantor Yamilka Ayleen Corralesruby Address [address] [place] [address] Info.Home Phone: Coverage Status Update:2025 Payer Group Member ID Coverage Type Subscriber Relationship to Subscriber Effective Date Expiration Date Medicaid [id number] F Lonz Id: [id number] [address] [place] [address] Home Phone: Self[employer] Medicaid Id: [id number] F Lonz Id: [id number] [address] [place] [address] Home Phone: Self Encounters Encounter Location(s) Arrival/Admit Date Discharge/Departure Date Discharge/Departure Disposition Provider(s) Non-patient / Non-visit -[facility] N ov2024 1:00pm Grzegorz Tapia MD Plan of Treatment Future Tests Future scheduled test information is unavailable Pending Tests Test Name Ordered Date Scheduled Date Urine Culture April 14, 2025 1:00pm Future Visits Future appointment information is unavailable Future Procedures Procedure Name Ordered Date Scheduled Date Urine Culture April 14, 2025 8:57pm Novem kavitha 2024 1:00pm Future Medications Future medication information is unavailable Patient Instructions Patient instructions are unavailable
[2025-04-21 12:58] VITALS: BP 115/86; PULSE 97; TEMP 36.7; O2SAT 98; BMI 51.1
--- NOTE | 2025-04-21 13:05 | PC.NURSE ---
[facility] stated to [facility] pt should have MRI completed. [facility] nurse states pt had unresponsive, unequal size pupil and pt is AMS. pt at this time a&ox4, pupils round, reactive and equal in size.
--- OUTSIDE RECORDS SUMMARY | 2025-04-21 13:07 | XMS_ITS | Encounter Summary ---
[id number] [address] [place] [address] Care Team Providers Care Negative Assembler Name Role Phone HarveyKristin yu Tevin HEALTH SERVICES DIRECTOR-RACE STARTER Primary Care Provider Encounter Details DateTypeDepartmentCare Team (Latest Contact Info)Fadygyrimck75/03/2025 Documentation [facility] - Radiation Oncology [address] [place] [address] Nancy Hernandez RN Social History Tobacco UseTypesPacks/DayYears UsedDateSmoking Tobacco: Some DaysCigarettes Smokeless Tobacco: NeverAlcohol UseStandard Drinks/WeekCommentsNever0 (1 standard drink = 0.6 oz pure alcohol)[facility] UtilitiesAnswerDate RecordedIn the past 12 months has the electric, gas, oil, or water [employer] threatened to shut off services in your home?08/28/2024PRAPARE - TransportationAnswerDate RecordedIn the past 12 months, has lack of transportation kept you from medical appointments or from getting medications?No08/28/2024In the past 12 months, has lack of transportation kept you from meetings, work, or from getting things needed for daily living?08/28/2024Housing InstabilityAnswerDate RecordedAre you worried or concerned that in the next two months you may not have stable housing that you own, rent or stay in as a part of a household?No08/28/2024 ChildcareAnswerDate AxxsvhvnHkjcndjbxBqixkap58/12/2019EmploymentAnswerDate JxrouoaeUcqhlhmiycVowmqdz86/12/2019Hunger ScreeningAnswerDate RecordedWithin the past 12 months we worried whether our food would run out before we got money to buy more.Never True12/24/2024Within the past 12 months the food we bought just didn't last and we didn't have money to get more.Never True12/24/2024 CommentsNoSex and Gender InformationValueDate RecordedSex Assigned at BirthNot on fileLegal CgsTztwhe52/16/2016 11:57 AM ESTGender IdentityNot on fileSexual OrientationNot on filedocumented as of this encounter Progress Notes * Nancy Hernandez RN - 04/21/2025 12:23 PM EST Sujey from [facility] calls back with update; patient will be transported to [facility] ED within an hour documented in this encounter Plan of Treatment DateTypeDepartmentCare Team (Latest Contact Info)Peqjhstalnw81/20/2026 9:[address] [facility] [address] [place] [phone] Guillermo Lundberg MD [facility] [facility] [address] [place] [address] 06/25/2025 1:00 PM ESTOffice Visit [facility] [address] [place] [phone] Guillermo Lundberg MD [address] [facility] [address] [place] [address] 06/29/2025 9:50 AM ESTOffice Visit [facility] [address] [place] [phone] Juni Espinal MD [address] [place] [address] [address] [place] [phone] documented as of this encounter Goals GoalPatient Goal TypeAssociated ProblemsRecent ProgressPatient-Stated?Author SNF Amparo Thomas LSW Note: Evaluation of progress towards goal: SNF recommended, pt agreeable to SNF stating she is not able to care for self at home at this time documented as of this encounter Visit Diagnoses Not on filedocumented in this encounter Care Teams Team MemberRelationshipSpecialtyStart DateEnd Date Kristin Gracia, HEALTH SERVICES DIRECTOR-RACE STARTER PCP - GeneralNurse Practitioner08/28/24documented as of this encounter
--- OUTSIDE RECORDS SUMMARY | 2025-04-21 13:07 | XMS_ITS | Encounter Summary ---
Author Organization [facility] Address [id number] [address] [place] [address] Care Team Providers Care Clinical Social Work Aide Name Role Phone HarveyKristin yu Tevin VIEIRAN-WELDER TECH Primary Care Provider Encounter Details DateTypeDepartmentCare Team (Latest Contact Info)Bxisjosfqgf77/03/2025 Documentation Meera Albarado [facility] - Medical Oncology [address] [place] [address] Nancy Hernandez RN Social History Tobacco UseTypesPacks/DayYears UsedDateSmoking Tobacco: Some DaysCigarettes Smokeless Tobacco: NeverAlcohol UseStandard Drinks/WeekCommentsNever0 (1 standard drink = 0.6 oz pure alcohol)[facility] UtilitiesAnswerDate RecordedIn the past 12 months has the electric, gas, oil, or water company threatened [...] as a part of a household?No08/28/2024 ChildcareAnswerDate SzqxkpylRsyeqhbagPhccyvq10/12/2019EmploymentAnswerDate LaxmptsqTivuedmvumQhhtkjh60/12/2019Hunger ScreeningAnswerDate RecordedWithin the past 12 months we worried whether our food would run out before we got money to buy more.Never True12/24/2024Within the past 12 months the food we bought just didn't last and we didn't have money to get more.Never True12/24/2024 CommentsNoSex and Gender InformationValueDate RecordedSex Assigned at BirthNot on fileLegal WtrLilkpt25/16/2016 11:57 AM ESTGender IdentityNot on fileSexual OrientationNot on filedocumented as of this encounter Progress Notes * Nancy Hernandez RN - 04/21/2025 11:32 AM EST [facility] contacts to inform us that patient is experiencing mental status changes and physical decline in form of increased weakness and instability She is scheduled for MR/Brain May 2024 RN advises that patient should be evaluated further at an ED james, preferably [facility] (or [facility] if needed based on their facility protocols) Pt PCP should also be informed of status changes documented in this encounter Plan of Treatment DateTypeDepartmentCare Team (Latest Contact Info)Bbjokszmaoj20/20/2026 9:15 AM ESTAppointment [facility] [address] [place] [address] Guillermo Lundberg MD [address] [facility] [facility] [address] [place] [address] 06/25/2025 1:00 PM ESTOffice Visit Meera Albarado [facility] - Medical Oncology [address] [place] [address] Guillermo Lundberg MD [address] [facility] [facility] [address] [address] [place] [address] 06/29/2025 9:50 AM ESTOffice Visit [facility] [address] [place] [phone] Juni Espinal MD [address] [place] [phone] documented as of this encounter Goals GoalPatient Goal TypeAssociated ProblemsRecent ProgressPatient-Stated?Author SNF Amparo Thomas LSW Note: Evaluation of progress towards goal: SNF recommended, pt agreeable to SNF stating she is not able to care for self at home at this time documented as of this encounter Visit Diagnoses Not on filedocumented in this encounter Care Teams Team MemberRelationshipSpecialtyStart DateEnd Date Kristin Gracia, ELAN-WELDER TECH PCP - GeneralNurse Practitioner08/28/24documented as of this encounter
--- OUTSIDE RECORDS SUMMARY | 2025-04-21 13:07 | XMS_ITS | Clinical Summary ---
Author Organization [employer] tem Address [id number] [address] [place] [address] Care Team Providers Care Biomass Facilitator Name Role Phone HarveyberenicevickyKristin Tevin SHINGLE TRIMMER-SERVICES ADVISOR Primary Care Provider Allergies No known active allergies Medications MedicationSigDispense QuantityRefillsLast FilledStart DateEnd DateStatus acetaminophen (TYLENOL) 325 mg tablet Take 2 tablets (650 mg total) by mouth every 6 (six) hours as needed for pain. Active metoprolol tartrate (LOPRESSOR) 25 mg tablet Take 1 tablet (25 mg total) by mouth in the morning and 1 tablet (25 mg total) before bedtime.5Active levETIRAcetam (KEPPRA) 500 mg tablet Take 1 tablet (500 mg total) by mouth in the morning and 1 tablet (500 mg total) before bedtime.5Active sennosides-docusate sodium (SENOKOT-S) 8.6-50 mg Take 2 tablets by mouth nightly.5Active busPIRone (BUSPAR) 7.5 mg tablet Take 1 tablet (7.5 mg total) by mouth.5Active potassium chloride (KLOR-CON SPRINKLE) 10 MEQ CR capsule 5Active traZODone (DESYREL) 50 mg tablet Take 0.5 tablets (25 mg total) by mouth.4Active ondansetron (ZOFRAN) 8 mg tablet Take 1 tablet (8 mg total) by mouth every 8 (eight) hours as needed for nausea or vomiting. 30 tablet 5Active sulfamethoxazole-trimethoprim (BACTRIM DS) 800-160 mg per tablet Indications:GBM (glioblastoma multiforme) ([facility])Take 1 tab daily, on Saturday and every week. 60 tablet 6Active temozolomide (TEMODAR) 180 MG chemo capsule Indications:GBM (glioblastoma multiforme) ([facility])Take 1 capsule by mouth daily 30 capsule 5Active saliva stimulant comb. no.3 (BIOTENE) spray,non-aerosol 1 spray by mucous membrane route as needed (5 times daily).5Active cholecalciferol, vitamin D3, 50 mcg (2,000 unit) tablet,chewable Chew 25 mcg and swallow in the morning.5Active docusate sodium (COLACE) 100 mg capsule Take 1 capsule (100 mg total) by mouth in the morning and 1 capsule (100 mg total) before bedtime.02/17/2025tive cyclobenzaprine (FLEXERIL) 10 mg tablet Take 1 tablet (10 mg total) by mouth nightly.5Active glucagon HCL (GLUCAGON, HCL, EMERGENCY KIT) 1 mg recon soln 1 mg every 15 (fifteen) minutes as needed.5Active HYDROcodone-acetaminophen (NORCO) 5-325 mg per tablet Take 1 tablet by mouth every 8 (eight) hours as needed for pain.5Active insulin lispro (HumaLOG) 100 unit/mL injection Inject 1 mL (100 Units total) under the skin in the morning and 1 mL (100 Units total) before bedtime. Per sliding scale, twice a day if blood sugar is less than 50, call MD. If blood sugar is 150-200 give 2 units. 201-250 give 4 units. 251-300 give 6 units. 301-350 give 8 units. If 351-400 give 10units. If gre. 5Active sertraline (ZOLOFT) 50 mg tablet Take 1 tablet (50 mg total) by mouth in the morning.5Active albuterol (PROVENTIL,VENTOLIN) 2.5 mg /3 mL (0.083 %) nebulizer solution Inhale 3 mL (2.5 mg total) by nebulization every 4 (four) hours as needed for wheezing.Active ferrous sulfate 325 (65 FE) mg EC tablet Take 1 tablet (325 mg total) by mouth in the morning and 1 tablet (325 mg total) in the evening. Take with meals.Active nitrofurantoin, macrocrystal-monohydrate, (MACROBID) 100 mg capsule Take 1 capsule (100 mg total) by mouth in the morning and 1 capsule (100 mg total) before bedtime.Active melatonin (CIRCADIN) 5 mg tablet Take 1 tablet (5 mg total) by mouth nightly.Active temozolomide (TEMODAR) 180 MG chemo capsule Take 2 capsules by mouth daily 10 capsule 1115Active polyethylene glycol (MIRALAX) 17 gram/dose powder Take by mouth in the morning.5Active predniSONE (DELTASONE) 20 mg tablet 03/11/2025tive mirtazapine (REMERON CANDI-TAB) 15 mg disintegrating tablet Dissolve 1 tablet (15 mg total) on tongue nightly.04/02/2025Discontinued bumetanide (BUMEX) 2 mg tablet Discontinued dexAMETHasone (DECADRON) 4 mg tablet Take by mouth.Discontinued levoFLOXacin (LEVAQUIN) 500 mg tablet Take 1 tablet (500 mg total) by mouth in the morning. End 11/24/24.11/09/2024 04/02/2025Discontinued nystatin (MYCOSTATIN) powder Apply topically in the morning and before bedtime. Discontinued Active Problems ProblemNoted DateDiagnosed WeogVblzamfjbffdizpa04/24/2025GBM (glioblastoma multiforme)11/12/2024 Cancer Staging: Clinical stage from 09/23/2024:WHO G4- Signed by Grey Yo MD on 11/12/2024 Altered mental status, unspecified altered mental status type09/19/2024 Limitation of activities due to ttozmmxcrc71/17/2025Nutritional deficiency, iacxyucjqvz89/17/2025Difficulty in walking, not elsewhere kakkztqwmo79/16/2025 Generalized muscle fxonlepw28/16/2025ognitive communication efbeguq5009/01/2024 Depression, hpigmjshzyl13/15/2025Dysphagia, oropharyngeal phase09/01/2024 Traumatic rupture of lumbar intervertebral disc09/01/2024Disease characterized by destruction of skeletal bmhxyt1309/01/2024Non-traumatic rhabdomyolysis 08/28/20243927Dsiujqug34/11/2025Generalized anxiety disorder with panic attacks 05/18/2024 Overview (08/28/2024): Duloxetine, prozac and sertraline in the past 05/08/24: PHQ 9 score=11, MELISSA 7 score= 5 07/07/24: PHQ =4, MELISSA 7=12 Hyperlipidemia, /12/2024OSA (obstructive sleep apnea)07/30/2023 Multiple ehrbjlvuf31/12/2023Primary fjwvdbvbfocb99/12/2023Primary insomnia 04/30/2023 Encounters DateTypeDepartmentCare XjerQnuiunagiwe99/03/2025Documentation [facility] - Radiation Oncology [address] [place] [phone] Nancy Hernandez, MOE 04/21/2025Documentation Meera L [facility] - Medical Oncology [address] [place] [phone] Nancy Hernandez RN 04/02/2025 1:00 PM ESTOffice Visit Meera Albarado [facility] - Medical Oncology [address] [place] [phone] Guillermo Lundberg MD GBM (glioblastoma multiforme) ([facility]) (Primary Dx)04/02/2025Documentation Meera L [facility] - Medical Oncology [address] [place] [phone] Chas Agrawal, MOE 04/02/20252594Msxzkz21/27/2025Telephone [facility] [address] [place] [phone] Татьяна Ramirez 03/04/2025 11:15 AM EDTOffice Visit Meera Alves [facility] - Medical Oncology [address] [place] [phone] Guillermo Lundberg MD GBM (glioblastoma multiforme) ([facility]) (Primary Dx)03/04/2025 10:29 AM EDT - 03/04/2025 11:59 PM EDTHospital Encounter [facility] - Radiation Oncology [address] [place] [phone] GBM (glioblastoma multiforme) ([facility]) (Primary Dx) Discharge Disposition: Still a Iggdemu9803/04/2025Documentation Meera L [facility] Medical Oncology [address] [place] [phone] She Drew, MOE 03/04/2025Documentation [facility] - Radiation Oncology [address] [place] [phone] Nancy Hernandez, MOE 03/04/2025Documentation Tabernash Verena [facility] - Medical Oncology [address] [place] [phone] Priyanka Velez RN 03/04/20251680Uelwbw65/06/2025 10:52 AM EDT - 02/22/2025 11:59 PM EDTHospital Encounter [facility] - MRI Imaging [address] [place] [address] Guilelrmo Lundberg MD GBM (glioblastoma multiforme) ([facility]); Thrombocytopenia Discharge Disposition: Home02/22/20256522Zmmxkt35/22/2025Orders Only [facility] - Radiation Oncology [address] [place] [phone] Ref Prov, Not In System 01/21/2025 10:09 AM EDT - 01/21/2025 11:59 PM EDTHospital Encounter [facility] - Radiation Oncology [address] [place] [phone] GBM (glioblastoma multiforme) ([facility]) (Primary Dx) Discharge Disposition: Still a Kjqophs0501/21/2025Orders Only [facility] - Radiation Oncology [address] [place] [phone] Nancy Hernandez RN GBM (glioblastoma multiforme) ([facility]) (Primary Dx)01/20/2025 10:23 AM EDT - 01/20/2025 11:59 PM EDTHospital Encounter [facility] - Radiation Oncology [address] [place] [phone] GBM (glioblastoma multiforme) ([facility]) (Primary Dx) Discharge Disposition: Still a Jracbjj4501/20/2025 10:21 AM EDT - 01/20/2025 10:22 AM EDTHospital Encounter [facility] - Radiation Oncology [address] [place] [phone] Discharge Disposition: Still a Ccsuoyd2601/20/2025Travelfrom Last 3 Months Immunizations ImmunizationAdministration DatesNext DueInfluenza High Dose Preservative Free IM 03/07/2022,03/19/2015,04/27/2014Influenza, Im Flucelvax (Pf)03/05/2024Influenza, Im Trivalent Fviamgfumfct74/12/2023Influenza, Injectable, quadrivalent (PF) 04/08/2020,03/20/2019,06/05/2018,02/27/2017,04/03/2016Influenza, Intradermal (Pf)3Pneumococcal Oxnrwgnbcxppus90/16/5253Zmsl78/16/2017Unknown Vaccine Or Immune Byytuetm44/17/2024,05/29/2022,05/18/2021,07/28/2020,10/02/2016 Family History Medical HistoryRelationNameCommentsStrokeMotherRelationNameStatusCommentsMother Social History Tobacco UseTypesPacks/DayYears UsedDateSmoking Tobacco: Some DaysCigarettes Smokeless Tobacco: Never Tobacco Cessation:Ready to Q uit: Not Asked; Counseling Given: Not Answered Alcohol UseStandard Drinks/WeekCommentsNever0 (1 standard drink = 0.6 oz pure alcohol)[facility] UtilitiesAnswerDate RecordedIn the past 12 months has the electric, gas, oil, or water company threatened to shut off services in your home?No 08/28/2024PRAPARE - TransportationAnswerDate RecordedIn the past 12 months, has lack of transportation kept you from medical appointments or from getting medications?No08/28/2024In the past 12 months, has lack of transportation kept you from meetings, work, or from getting things needed for daily living?No 08/28/2024Housing InstabilityAnswerDate RecordedAre you worried or concerned that in the next two months you may not have stable housing that you own, rent or stay in as a part of a household?No08/28/2024hildcareAnswerDate Recorded UipypeunlVvlfyre41/12/2019EmploymentAnswerDate RecordedEmploymentUnknown 10/29/2018Hunger ScreeningAnswerDate RecordedWithin the past 12 months we worried whether our food would run out before we got money to buy more.Never True12/24/2024Within the past 12 months the food we bought just didn't last and we didn't have money to get more.Never True12/24/2024CommentsNoSex and Gender InformationValueDate RecordedSex Assigned at BirthNot on fileLegal Sex Gkwqqk0307/05/2015 11:57 AM ESTGender IdentityNot on fileSexual OrientationNot on file Last Filed Vital Signs Vital SignReadingTime TakenCommentsBlood Hdcsqhtq561/7304/02/2025 12:51 PM EST Wivjl149604/02/2025 12:51 PM QGANszurrtzdqg69.4 ??C (97.6 ??F)04/02/2025 12:51 PM ESTRespiratory Ggmq176306/02/2024 12:51 PM ESTOxygen Nnqhzpmzrn00%04/02/2025 12:51 PM ESTInhaled Oxygen Concentration--Wswolk058.3 kg (263 lb)04/02/2025 12:51 PM DFQEstwhs671.6 cm (5' 5.98 )04/02/2025 12:51 PM ESTBody Mass Index42.47 04/02/2025 12:51 PM EST Plan of Treatment DateTypeDepartmentCare Team (Latest Contact Info)Cgggooetufm88/20/2026 9:15 AM ESTAppointment [facility] [address] [place] [phone] Guillermo Lundberg MD [address] [place] [phone] 06/25/2025 1:00 PM ESTOffice Visit Meera L [facility] - Medical Oncology [address] [place] [phone] Guillermo Lundberg MD [address] [place] [address] 06/29/2025 9:50 AM ESTOffice Visit [facility] [address] [place] [phone] Juni Espinal MD [address] [place] [address] [address] [place] [phone] Health MaintenanceDue DateLast DoneCommentsTobacco Jmdjyekoym26/09/1969 Depression Fvdhxbvnl56/09/1981Adult BMI Follow Up Plan1986Zoster (Shingles) Vaccine (1 of 2)1987Pap Smear1989COVID-19 Vaccine ( season)/02/2023, 05/18/2021, 07/28/2020Influenza Vaccine /, 05/02/2023, 04/30/2023, Additional history existsAdult BMI Vygmcnakw03Tobacco Kxfrshuzy26DTaP,Tdap and Td Vaccines (2 - Td or Tdap) Goals GoalPatient Goal TypeAssociated ProblemsRecent ProgressPatient-Stated?Author SNF Amparo Thomas LSW Note: Evaluation of progress towards goal: SNF recommended, pt agreeable to SNF stating she is not able to care for self at home at this time Medical Devices ImplantedTypeAreaManufacturerDevice IdentifierShelf Expiration DateModel / Serial / LotPatch Dura 3x3in Thk3.5mm Crnmxf Drmtrx-[place] + Npor Rgnrt Rpl [id number] - [id number] Implanted:Qty: 1 on 09/23/2024 [facility]: BrainSTRYKER [id number] / / [id number] Bn 12mm 2 Hl Lp Bar Tab Unv Neuro Ii Crnmxf Ti Ns 1.5 - [id number] Implanted:Qty: 2 on 09/23/2024 by [facility]: BrainSTRYKER [id number] / / Cover Bur Hl Crnfcl 10mmx.5mm Lp Tab Strl Lf Disp - [id number] Implanted:Qty: 1 on 09/23/2024 by [facility]: Brain[employer]YKER [id number] / / Screw Bn 4mm 1.5mm Slf Drl Xpn Crnmxf Strl Must Order In Multiples Of 5ea - [id number] Implanted:Qty: 7 on 09/23/2024 [facility]: VoltTRYM[facility] [id number] / / Procedures Procedure NamePriorityDate/TimeAssociated DiagnosisCommentsMR BRAIN W WO CONT Gffpugd8502/22/2025 11:54 AM EDT GBM (glioblastoma multiforme) ([facility]) Thrombocytopenia RADIATION COURSE HLDJSUOFxifudd36/22/2025 10:58 AM EDT DAILY RADIATION BTAFIFQSAQpwvbyr41/04/2025 10:29 AM EDT DAILY RADIATION BLSJXOYGHUfobzfy73/03/2025 10:36 AM EDT from Last 3 Months Results * MR brain with and without contrast (02/22/2025 11:54 AM EDT)Anatomical Region LateralityModalityNeuro, Head, Head and Neck, Neuro CoveraN/AMagnetic ResonanceSpecimen (Source)Anatomical Location / LateralityCollection Method / VolumeCollection TimeReceived Time02/24/2025 2:46 AM EDT Narrative 02/24/2025 6:08 AM EDT EXAM: MR BRAIN W WO CONT TECHNIQUE: Routine multiplanar multisequence MR imaging of the brain was performed prior to and following the uneventful administration of intravenous contrast. CLINICAL HISTORY: Glioblastoma. COMPARISON: 11/13/2024, 09/19/2024, CT dated 11/29/2024 FINDINGS: Again seen are postsurgical changes status post right-sided craniotomy with a right temporal lobe surgical resection site. There has been definitive progression of 8 the irregular rind of enhancementlining the surgical resection site, with adjacent enhancing nodular foci measuring 1.2 cm in the right basal ganglia and 1.1 cm in the medial right temporal lobe. Overall findings are compatible with progression of glioblastoma. Surrounding FLAIR and T2 hyperintensity has also progressed in the interval, compatible with vasogenic edema and possibly infiltrative nonenhancing glioma. There remains localized mild mass effect seen as swelling of the involved gyri and effacement of the overlying sulci. There is no shift of the midline structures and the basal cisterns are patent. There isno evidence for ventricular outflow obstruction. There are white matter changes of chronic ischemic small vessel disease with multifocal old small cortical infarcts. There is no restricted diffusion.The midline structures and craniocervical junction are within normal limits. The paranasal sinuses are well aerated. The mastoids are clear. IMPRESSION: 1. Overall findings are compatible with progression of glioblastoma. 2. Changes of right-sided craniotomy with a right temporal lobe surgical resection site are again noted. There has been definitive progression of a thick irregular rind of enhancement lining the surgical resection cavity with focal enhancing nodular foci measuring 1.2 cm in the right basal ganglia and 1.1 cm in the medial right temporal lobe. Surrounding FLAIR and T2 hyperintensity has also progressed, compatible with vasogenic edema and possibly a component of infiltrative nonenhancing glioma. There remains mild local mass effect seen as swelling of the involved gyri and effacement of the overlying sulci. Finalized by Sebastian Grayson MD on 02/24/2025 6:08 AM Procedure Note Sebastian Grayson MD - 02/24/2025 EXAM: MR BRAIN W WO CONT TECHNIQUE: Routine multiplanar multisequence MR imaging of the brain was performed prior to and following the uneventful administration ofintravenous contrast. CLINICAL HISTORY: Glioblastoma. COMPARISON: 11/13/2024, 09/19/2024, CT dated 11/29/2024 FINDINGS: Again seen are postsurgical changes status post right-sided craniotomywith a right temporal lobe surgical resection site. There has beendefinitive progression of 8 the irregular rind of enhancement lining thesurgical resection site, with adjacent enhancing nodular foci measuring1.2 cm in the right basal ganglia and 1.1 cm in the medial right temporal lobe. Overall findings are compatible with progression of glioblastoma. SurroundingFLAIR and T2 hyperintensity has also progressed in the interval,compatible with vasogenic edema and possibly infiltrative nonenhancingglioma. There remains localized mild mass effect seen as swelling of the involved gyriand effacement of the overlying sulci. There is no shift of the midlinestructures and the basal cisterns are patent. There is no evidence forventricular outflow obstruction. There are white matter changes of chronicischemic small vessel disease with multifocal old small cortical infarcts. There isno restricted diffusion. The midline structures and craniocervicaljunction are within normal limits. The paranasal sinuses are well aerated.The mastoids are clear. IMPRESSION: 1. Overall findings are compatible with progression of glioblastoma. 2. Changes of right-sided craniotomy with a right temporal lobe surgical resection site are again noted. There has been definitive progression of athick irregular rind of enhancement lining the surgical resection cavitywith focal enhancing nodular foci measuring 1.2 cm in the right basalganglia and 1.1 cm in the medial right temporal lobe. Surrounding FLAIR and T2 hyperintensity has also progressed, compatible with vasogenic edema andpossibly a component of infiltrative nonenhancing glioma. There remainsmild local mass effect seen as swelling of the involved gyri andeffacement of the overlying sulci. Finalized by Sebastian Grayson MD on 02/24/2025 6:08 AM Authorizing ProviderResult TypeResult StatusChang Zuhair ARANGOG MRI ORDERABLES Final Result * RADIATION TREATMENT COURSE SUMMARY (02/08/2025 10:58 AM EDT)ComponentValueRef RangeTest MethodAnalysis TimePerformed AtPathologist SignatureCourse IdC1 VARIAN POCTCourse Start Date11/13/2024VARIAN POCTCourse End [id number] VARIAN POCTFirst Treatment Date12/07/2024VARIAN POCTLast Treatment Date 01/21/2025VARIAN POCTElapsed Orwr15ARESQV POCTReference Point IdRx BrainVARIAN POCTDose Given To Date6,000VARIAN POCTPlan IDRTempLobeBstVARIAN POCTPlan Name RTempLobeBstVARIAN POCTPlan Fractions Frdnjuc0XQZBZR POCTFractions Prescribed7 VARIAN POCTPrescribed Dose per Dpnpgxlk031XEDJZM POCTPlan Total Prescribed Dose1,400VARIAN POCTPlan IDRtTempLobeEdVARIAN POCTPlan NameRtTempLobeEdVARIAN POCTPlan Fractions Qfkayeh12ATRMTH POCTFractions Iguqcliuuv75DLEMTA POCT Prescribed Dose per Xhdsyyvc289RYSMOO POCTPlan Total Prescribed Dose4,600 VARIAN POCTSpecimen (Source)Anatomical Location / LateralityCollection Method / VolumeCollection TimeReceived Time02/08/2025 10:58 AM EDT Narrative Authorizing ProviderResult TypeResult StatusNot In System Ref ProvRADIATION ONCOLOGY ORDERABLESFinal ResultPerforming OrganizationAddressCity/State/ZIP Code Phone Number VARIAN POCT * DAILY RADIATION TREATMENT (01/21/2025 10:29 AM EDT)ComponentValueRef RangeTest MethodAnalysis TimePerformed AtPathologist SignatureCourse [id number] POCT Course Start Date11/13/2024VARIAN POCTFirst Treatment Date12/07/2024VARIAN POCTLast Treatment Date01/21/2025VARIAN POCTElapsed Yfou76HHRBHG POCTReference Point IdRx BrainVARIAN POCTDose Given To Date6,000VARIAN POCTSession Dose Kebmh602SQXZQM POCTPlan IDRTempLobeBstVARIAN POCTPlan NameRt Temportal Lobe Boost; IMRT VMATVARIAN POCTPlan Fractions Fmopaim9HKXEAF POCTFractions Sxmknxegpv1MHBXGM POCTPrescribed Dose per Dxiqhewx322TEVLZE POCTPlan Total Prescribed Dose1,400VARIAN POCTSpecimen (Source)Anatomical Location / LateralityCollection Method / VolumeCollection TimeReceived Time01/21/2025 10:29 AM EDT Narrative Authorizing ProviderResult TypeResult StatusNot In System Ref ProvRADIATION ONCOLOGY ORDERABLESFinal ResultPerforming OrganizationAddressCity/State/ZIP Code Phone Number VARIAN POCT * DAILY RADIATION TREATMENT (01/20/2025 10:36 AM EDT)ComponentValueRef RangeTest MethodAnalysis TimePerformed AtPathologist SignatureCourse [id number] POCT Course Start Date11/13/2024VARIAN POCTFirst Treatment Date12/07/2024VARIAN POCTLast Treatment Date01/20/2025VARIAN POCTElapsed Qibs18DYAOAC POCTReference Point IdRx BrainVARIAN POCTDose Given To Date5,800VARIAN POCTSession Dose Erfya494TSZJAW POCTPlan IDRTempLobeBstVARIAN POCTPlan NameRt Temportal Lobe Boost; IMRT VMATVARIAN POCTPlan Fractions Evfykwm4RZVRMU POCTFractions Obzlnxauid0TZZQKO POCTPrescribed Dose per Macidouz796MVJPPS POCTPlan Total Prescribed Dose1,400VARIAN POCTSpecimen (Source)Anatomical Location / LateralityCollection Method / VolumeCollection TimeReceived Time01/20/2025 10:36 AM EDT Narrative Authorizing ProviderResult TypeResult StatusNot In System Ref ProvRADIATION ONCOLOGY ORDERABLESFinal ResultPerforming OrganizationAddressCity/State/ZIP Code Phone Number VARIAN POCT from Last 3 Months Insurance Advance Directives * Full Code (Latest Code Status on File) Date ActivatedDate InactivatedComments09/19/2024 4:15 AM09/29/2024 2:25 AM * Full Code Date ActivatedDate InactivatedComments08/28/2024 2:20 PM09/01/2024 6:45 PM Care Teams Team MemberRelationshipSpecialtyStart DateEnd Date Kristin Gracia, ELAN-SERVICES ADVISOR PCP - GeneralNurse Practitioner08/28/24
--- OUTSIDE RECORDS SUMMARY | 2025-04-21 13:08 | XMS_ITS ---
Author Organization [employer] tem Address [facility] [id number] [address] [place] [address] Care Team Providers Care Air Tester Name Role Phone HarveyKristin yu Tevin BILLING REPRESENTATIVE-MARKETING TECHNOLOGIST Primary Care Provider Active Problems ProblemNoted DateDiagnosed CqevTomzktxuthnxhzux75/24/2025GBM (glioblastoma multiforme)11/12/2024 Cancer Staging: Clinical stage from 09/23/2024:WHO G4- Signed by Grey Yo MD on 11/12/2024 Altered mental status, unspecified altered mental status type09/19/2024 Limitation of activities due to wtnwmtopau23/17/2025Nutritional deficiency, vukpjfemgjl13/17/2025Difficulty in walking, not elsewhere yqqjjwdslv12/16/2025 Generalized muscle avsamcbn94/16/2025ognitive communication mljnlic2109/01/2024 Depression, bibjobtjivh50/15/2025Dysphagia, oropharyngeal phase09/01/2024 Traumatic rupture of lumbar intervertebral disc09/01/2024Disease characterized by destruction of skeletal bvygfz9509/01/2024Non-traumatic rhabdomyolysis 08/28/20244338Oruecsnv06/11/2025Generalized anxiety disorder with panic attacks 05/18/2024 Overview (08/28/2024): Duloxetine, prozac and sertraline in the past 05/08/24: PHQ 9 score=11, MELISSA 7 score= 5 07/07/24: PHQ =4, MELISSA 7=12 Hyperlipidemia, xifzttwy59/12/2024OSA (obstructive sleep apnea)07/30/2023 Multiple mrrvosmaf44/12/2023Primary dpuqihqtfxmt56/12/2023Primary insomnia 04/30/2023 Current Treatment and Therapy Plans No current plan information found. Past Treatment and Therapy Plans Past Radiation Episodes * Radiation TherapyOverview* First Treatment DateLast Treatment DateTreatment SiteTechniquealEpisode Srajjgug21/08/2024? * Linked Problems Treatment Courses* Treatment PeriodFraction DoseFractionsTotal DosePlansPlanned EKtaeLvolPbf08/25/2025 - 52007 / 71,970TgXfbgKdafSk80/21/2025 - 520023 / 234,600Reference PointsDeliveredRx Brain12/07/2024 - 01/21/2025?6,000 Lifetime Dose Tracking * ChemicalLifetime DoseAutomatic EntryManual EntryFluoroscopy7.3 mGy7.3 mGy0 mGy
--- OUTSIDE RECORDS SUMMARY | 2025-04-21 13:08 | XMS_ITS | Encounter Summary ---
Author Organization [facility] Address [address] [place] [address] Care Team Providers Care Surveillance Monitor Name Role Phone Kristin Gracia PSYCHOLOGY INTERN Unavailable [phone] Maxim Lanza MD Primary Care Provider Encounter Details DateTypeDepartmentCare Team (Latest Contact Info)Uxrgzgnkzvz37/03/2025Abstract [facility] [address] [place] [id number] Maxim Lanza MD [address] [place] [id number] Social History Tobacco UseTypesPacks/DayYears UsedDateSmoking Tobacco: FormerCigarettesQuit: 12/29/2015Passive Smoke Exposure: PastSmokeless Tobacco: NeverAlcohol Use Standard Drinks/WeekCommentsNot Currently0 (1 standard drink = 0.6 oz pure alcohol)tea and coffee 1-2 cups per dayHumiliation, Afraid, Rape, and Kick questionnaireAnswerDate RecordedWithin the last year, have you been afraid of your partner or ex-partner?No06/04/2023Within the last year, have you been humiliated or emotionally abused in other ways by your partner or ex-partner?No 06/04/2023Within the last year, have you been kicked, hit, slapped, or otherwise physically hurt by your partner or ex-partner?No06/04/2023Within the last year, have you been raped or forced to have any kind of sexual activity by your part ner or ex-partner?No06/04/2023Social Connection and Isolation PanelAnswerDate RecordedIn a typical week, how many times do you talk on the phone with family, friends, or neighbors?Twice a week06/04/2023How often do you get together with friends or relatives?Once a week06/04/2023How often do you attend pentecostal or tenriism services?1 to 4 times per year06/04/2023o you belong to any clubs or organizations such as pentecostal groups, unions, fraternal or athletic groups, or school groups?No06/04/2023How often do you attend meetings of the clubs or organizations you belong to?Never06/04/2023re you , , , , never , or living with a partner?Vtkeenn8506/04/2023UDIT-C AnswerDate RecordedQ1: How often do you have a drink containing alcohol?Monthly or less06/04/2023Q2: How many drinks containing alcohol do you have on a typical day when you are drinking?3 or Q3: How often do you have six or more drinks on one occasion?Less than yischbi7806/04/2023Overall Financial Resource Strain (CARDIA)AnswerDate RecordedHow hard is it for you to pay for the very basics like food, housing, medical care, and heating?Very hard06/04/2023HQ-2 AnswerDate RecordedPatient Health Questionnaire-2 Pmtxy303Finmount[facility] [place] of Occupational Health - Occupational Stress QuestionnaireAnswerDate RecordedDo you feel stress - tense, restless, nervous, or anxious, or unable to sleep at night because yourmind is troubled all the time - these days?Only a uvsort1306/04/2023Exercise Vital SignAnswerDate RecordedOn average, how many days per week do you engage in moderate to strenuous exercise (like a brisk walk)?4 days06/04/2023On average, how many minutes do you engage in exercise at this level?40 min01/16/2024Hunger Vital SignAnswerDate RecordedWithin the past 12 months, you worried that your food would run out before you got the money to buy more.Often true06/04/2023Within the past 12 months, the food you bought just didn't last and you didn't have money to get more.Often true06/04/2023RAPARE - TransportationAnswerDate RecordedIn the past 12 months, has lack of transportation kept you from medical appointments or from getting medications? Yes06/04/2023In the past 12 months, has lack of transportation kept you from meetings, work, or from getting things needed for daily living?No06/04/2023 Housing Stability Vital SignAnswerDate RecordedIn the last 12 months, was there a time when you were not able to pay the mortgage or rent on time?Yes06/04/2023 In the last 12 months, how many places have you lived?In the last 12 months, was there a time when you did not have a steady place to sleep or slept in horaceelter (including now)?No06/04/2023CommentsUnknownSex and Gender InformationValueDate RecordedSex Assigned at LurtiVnlduu06/11/2023 4:00 PM EST Legal LrkZxgval49/15/2023 7:10 PM EDTGender CknvvpbrCnnpsv56/11/2023 4:00 PM EST Sexual SmjdawevdsfRddudqk65/16/2024 10:08 PM ESTdocumented as of this encounter Plan of Treatment Not on file documented as of this encounter Visit Diagnoses Not on filedocumented in this encounter Additional Health Concerns AssessmentNoted TimePHQ-9 Depression Total Score: 9:00 AM EST documented as of this encounter Care Teams Team MemberRelationshipSpecialtyStart DateEnd Date Maxim Lanza MD PCP - GeneralFadcly Medicine07/15/23 Kristin Gracia NP Primary Care ProviderFadcly Medicine05/20/22documented as of this encounter
--- OUTSIDE RECORDS SUMMARY | 2025-04-21 13:08 | XMS_ITS | Encounter Summary ---
Author Organization [facility] Address [address] [place] [address] Care Team Providers Care Manager Action Name Role Phone HarveyberenicejesicaKristin beltran FOOD TECHNOLOGY TEACHER Unavailable [phone] Maxim Lanza MD Primary Care Provider [phone] Encounter Details DateTypeDepartmentCare Team (Latest Contact Info)Rsbuqqtjuel67/26/2025External Result Encounter [facility] External Department Unsolicited Rio Ennis MD [address] [place] [address] Social History Tobacco UseTypesPacks/DayYears UsedDateSmoking Tobacco: FormerCigarettesQuit: [...] relatives?Once a week06/04/2023How often do you attend holiness or latter-day services?1 to 4 times per year06/04/2023o you belong to any clubs or organizations such as holiness groups, unions, fraCOADE or athletic groups, or school groups?No06/04/2023How often do you attend meetings of the clubs or organizations you belong to?Never06/04/2023re you , , , , never , or living with a partner?Vrtriwi0906/04/2023UDIT-C AnswerDate RecordedQ1: How often do you have a drink containing alcohol?Monthly or less06/04/2023Q2: How many drinks containing alcohol do you have on a typical day when you are drinking?3 or Q3: How often do you have six or more drinks on one occasion?Less than auqxmfs0306/04/2023Overall Financial Resource Strain (CARDIA)AnswerDate RecordedHow hard is it for you to pay for the very basics like food, housing, medical care, and heating?Very hard06/04/2023HQ-2 AnswerDate RecordedPatient Health Questionnaire-2 Tymfe373Finsevier [facility] hospital [place] of Occupational Health - Occupational Stress QuestionnaireAnswerDate RecordedDo you feel stress - tense, restless, nervous, or anxious, or unable to sleep at night because yourmind is troubled all the time - these days?Only a geszmn1506/04/2023Exercise Vital SignAnswerDate RecordedOn average, how many days per week do you engage in moderate to strenuous exercise (like a brisk walk)?4 days06/04/2023On average, how many minutes do you engage in exercise at this level?40 min06/04/2023Hunger Vital SignAnswerDate RecordedWithin the past 12 months, you worried that your food would run out before you got the money to buy more.Often true06/04/2023Within the past 12 months, the food you bought just didn't last and you didn't have money to get more.Often true4PRAPARE - TransportationAnswerDate RecordedIn the past 12 months, [...] steady place to sleep or slept in ashelter (including now)?No06/04/2023CommentsUnknownSex and Gender InformationValueDate RecordedSex Assigned at XaifjRrwgba68/11/2023 4:00 PM EST Legal VbrTaqyvp95/15/2023 7:10 PM EDTGender JkreadfxBxewno75/11/2023 4:00 PM EST Sexual WmlljptetzcBbpkcct53/16/2024 10:08 PM ESTdocumented as of this encounter Plan of Treatment Not on file documented as of this encounter Procedures Procedure NamePriorityDate/TimeAssociated DiagnosisCommentsAEROBIC ROSE CHARGE (NMIC56)Uuohypq4704/14/2025 1:00 PM EST CULTURE, URINE, OFSBPFUJwnbtkf01/26/2025 1:00 PM EST documented in this encounter Results * (ABNORMAL) AEROBIC ROSE CHARGE (NMIC56) (04/14/2025 1:00 PM EST)ComponentValue Ref RangeTest MethodAnalysis TimePerformed AtPathologist SignatureAMIKACIN<16 (S)04/17/20[facility]trAMOXACILL[facility]/K CLAVULANATE<8/4(S)04/17/2025 8:36 AM [facility] AMPICILLIN/ZSWUVPGRG04/8(I)04/17/2025 8:36 AM [facility] CtrAZTREONAM<4(S)04/17/2025 8:36 AM [facility] CtrCEFAZOLIN <2(S)04/17/2025 8:36 AM [facility] CtrCEFEPIME<2(S) 04/17/2025 8:36 AM [facility] CtrCEFTAZIDIME<1(S)04/17/2025 8:36 AM [facility] CtrCEFTAZIDIME/AVIBACTAM<4(S)04/17/2025 8:36 AM [facility] CtrCEFTOLOZANE/TAZOBACTAM<2(S)04/17/2025 8:36 AM [facility] CtrCEFTRIAXONE<1(S)04/17/2025 8:36 AM [facility] CtrCEFUROXIME8(S)04/17/2025 8:36 AM [facility] CtrCIPROFLOXACIN0.5(I)04/17/2025 8:36 AM [facility] CtrERTAPENEM<0.5(S)04/17/2025 8:36 AM [facility] CtrGENTAMICIN<2(S)04/17/2025 8:36 AM [facility] LEVOFLOXACIN1(I)04/17/2025 8:36 AM [facility] CtrMEROPENEM <1(S)04/17/2025 8:36 AM [facility] CtrMEROPENEM/VABORBACTAM <2(S)04/17/2025 8:36 AM [facility] CtrNITROFURANTOIN>64(R) 04/17/2025 8:36 AM [facility] CtrPIPERACILLIN/TAZOBACTAM<8 (S)04/17/2025 8:36 AM [facility] CtrTETRACYCLINE<4(S) 04/17/2025 8:36 AM [facility] CtrTIGECYCLINE<2(S)04/17/2025 8:36 AM [facility] CtrTOBRAMYCIN<2(S)04/17/2025 8:36 AM EST [facility] CtrTRIMETHOPRIM/SULFAMETHOXAZOLE>2/38(R)04/17/2025 8:36 AM [facility] CtrSpecimen (Source)Anatomical Location / LateralityCollection Method / VolumeCollection TimeReceived TimeClean-Voided Midstream (Clean Void Midstream)04/14/2025 1:00 PM EST04/14/2025 8:57 PM EST Narrative Authorizing ProviderResult TypeResult StatusRio Ennis MDFIRELANDSFinal Result Performing OrganizationAddressCity/[facility] [address]/[facility] Villa RicaPhone Number [address] [address], [facility] [address] [place] [address] * Urine culture (04/14/2025 1:00 PM EST)ComponentValueRef RangeTest Method Analysis TimePerformed AtPathologist SignatureFRMC ORGANISMKlebsiella vpjjodlsoh01/29/2025 8:36 AM [facility] CtrCOLONY COUNT >100,6992006/17/2024 8:36 AM [facility] CtrSpecimen (Source) Anatomical Location / LateralityCollection Method / VolumeCollection Time Received TimeClean-Voided Midstream (Clean Void Midstream)04/14/2025 1:00 PM EST04/14/2025 8:57 PM EST Narrative [facility] - 04/17/2025 8:37 AM EST Diagnosis: AMS Comment: Authorizing ProviderResult TypeResult StatusRio GILL MICROBIOLOGY - GENERAL ORDERABLESFinal ResultPerforming OrganizationAddressCity/State/ZIP Code Phone Number [facility] [address] [place] [address], [facility] [address] [place] [address] documented in this encounter Visit Diagnoses Not on filedocumented in this encounter Additional Health Concerns AssessmentNoted TimePHQ-9 Depression Total Score: 9:00 AM EST documented as of this encounter Care Teams Team MemberRelationshipSpecialtyStart DateEnd Date Maxim Lanza MD PCP - GeneralFamily Medicine07/15/23 Kristin Gracia NP Primary Care ProviderFalahey hospital & medical center Medicine05/20/22documented as of this encounter
--- OUTSIDE RECORDS SUMMARY | 2025-04-21 13:08 | XMS_ITS | Clinical Summary ---
Author Organization [facility] Address [address] [place] [address] Care Team Providers Care Mining Consultant Name Role Phone HarveyberenicejesicaKristin beltran BOTTLE LABEL INSPECTOR Unavailable [phone] Maxim Lanza MD Primary Care Provider [phone] Allergies No known active allergies Medications MedicationSigDispense QuantityRefillsLast FilledStart DateEnd DateStatus ocrelizumab (Ocrevus) 300 MG/10ML solution 10 mL if needed (twice a year for MS)Active albuterol HFA (Ventolin HFA) 90 mcg/act inhaler Indications:Chronic bronchitis, unspecified chronic bronchitis type (HCC)Inhale 2 puffs every 6 (six) hours if needed for wheezing or shortness of breath 18 g 4Active cetirizine (ZyrTEC) 10 MG tablet Indications:Acute non-recurrent frontal sinusitisTake 1 tablet (10 mg) by mouth Daily 30 tablet 5Active ARIPiprazole (Abilify) 10 MG tablet Indications:Major depressive disorder, recurrent, moderate (HCC),Generalized anxiety disorder with panic attacksTake 1 tablet (10 mg) by mouth Daily 30 tablet 5Active escitalopram (Lexapro) 10 MG tablet Indications:Generalized anxiety disorder with panic attacks,Moderate episode of recurrent major depressive disorder (HCC)Take 1 tablet (10 mg) by mouth Daily 30 tablet 5Active mirtazapine (Remeron) 15 MG tablet Indications:Generalized anxiety disorder with panic attacks,Major depressive disorder, recurrent, moderate (HCC),Primary insomniaTake 1 tablet (15 mg) by mouth at bedtime 30 tablet 5Active busPIRone (Buspar) 7.5 MG tablet Indications:Generalized anxiety disorder with panic attacksTake 1 tablet (7.5 mg) by mouth every 8 (eight) hours if needed (anxiety) 90 tablet 5Active nystatin (Mycostatin) 021269 UNIT/GM powder Indications:Yeast dermatitisApply topically 2 (two) times a day 60 g 506Active HYDROcodone-acetaminophen ([place]) 5-325 MG tablet Indications:PainTake 1 tablet by mouth every 8 (eight) hours if needed for severe pain 90 tablet 5Active Active Problems ProblemNoted DateDiagnosed DateMixed stress and urge urinary incontinence 08/23/2024east kojwiaierz78/06/2025ody mass index (BMI) 45.0-49.9, adult 06/25/2024Morbid (severe) obesity due to excess cqkqkykw37/06/2025 Assessment & Plan (08/18/2024 6:14 AM EDT): [...] and sugary drinks. Major depressive disorder, recurrent, apvpmmxf66/06/2025 Overview (07/07/2024): 05/08/24: PHQ 9 score=11 MELISSA [...] Fu in 6 weeks Encounter for subsequent annual wellness visit (AWV) in Medicare patient 05/18/2024 [...] yearly basis Generalized anxiety disorder with panic ukuuhpz6005/18/2024 Overview (07/07/2024): Duloxetine, prozac and sertraline in [...] abilify at 5mg Fu in 4 weeks Fgzpbkljf35/17/2024Needs flu shot03/05/20248976Hyleynkiotcrky27/16/2024 Assessment & Plan (02/03/2024 3:02 PM EDT): Fluids, atb, fu if not better If any fever, chills or worsening in symptoms go to ER Cubital tunnel syndrome of both upper /05/2024bnormal weight gain 01/06/2024Vitamin D ofztnawxut38/19/2024 Assessment & Plan (01/06/2024 10:22 AM EDT): Check labs Tzbmmrck13/19/2024 Assessment & Plan (01/06/2024 10:21 AM EDT): Will check urine and A1c for diabetes Tubghyvwwa36/19/2024 Assessment & Plan (01/06/2024 10:22 AM EDT): Check labs Metabolic /19/2024 Assessment & Plan (01/06/2024 10:22 AM EDT): Check labs Jaxmqgdajdjx19/23/2024 Assessment & Plan (10/10/2023 3:12 PM EDT): Limit caffine Trial oxybutynin XL, advised of common side effects Fu in 3 months LORENZO (obstructive sleep apnea)07/30/2023 Assessment & Plan (05/18/2024 10:02 AM EST): You have a diagnosis of obstructive sleep apnea. It is recommended that you wear your PAP device any time while in bed sleeping. Not using the PAP device can increase your risk of elevated/uncontrolled high blood pressure, atrial fibrillation, heart attack, stroke, or sudden . Does not wear this , never has, dx 20 years ago Qrckyu3007/30/2023Hyperlipidemia, qwphgyfp45/12/2024 Assessment & Plan (01/06/2024 10:22 AM EDT): Check labs Hot /12/2024Abnormal CBC07/30/2023ontact with and (suspected) exposure to viral bjoatjlfb57/12/2024 Assessment & Plan (01/06/2024 10:22 AM EDT): Pt requests testing for Hep C , had it many years ago and was treated and is virus free Assessment & Plan (07/30/2023 6:15 PM EDT): Pt requests testing for Hep C , had it many years ago and was treated and is virus free COPD with nawwwztqnlns41/07/2024 Assessment & Plan (06/26/2023 12:24 PM EST): [...] her acute symptoms are better. Cutis verticis fxrtuh8006/05/2023 Assessment & Plan (06/05/2023 11:41 AM EST): Suspect this, has fu next month with MS doctor will talk to them about that at that time Chronic shoulder pain05/01/2023 Assessment & Plan (12/02/2023 10:15 AM EDT): Asking for pain medication stronger than NSAID, was to have surgery last week, asking for somethingfor intense left shoulder pain OARRS reviewed Does use medical marijuana, will prescribe #7 norco for her to take prn severe pain Assessment & Plan (05/01/2023 4:07 PM EST): Send in mobic Primary oplsyjbsdnxf59/12/2023 Assessment & Plan (01/06/2024 10:21 AM EDT): Stable at this time Assessment & Plan (06/26/2023 11:45 AM EST): Not on any medications currently. At goal without treatment. Recommended home BP monitoring and instructed to call office if persistently elevated BP above 140/90 Assessment & Plan (04/30/2023 6:08 PM EST): Stable at this time Class 3 severe obesity without serious comorbidity with body mass index (BMI) of 45.0 to 49.9 in adult04/30/2023 Assessment & Plan (05/18/2024 6:21 AM EST): [...] ok will trial script for wegovy Primary nvnchhko32/12/2023 Assessment & Plan (08/18/2024 9:32 AM EDT): Would like to trial mirtazapine for sleep Assessment & Plan (05/18/2024 6:20 AM EST): Continue trazodone doing well when takes meds sleeps 7 hours Assessment & Plan (01/06/2024 10:21 AM EDT): Continue trazodone doing well when takes meds sleeps 7 hours Assessment & Plan (04/30/2023 6:08 PM EST): Continue trazodone Multiple lsvcxlpsi50/12/2023 Assessment & Plan (07/07/2024 6:43 AM EST): [...] EST): Cont with [facility] Encounter for screening mammogram for malignant neoplasm of iasymh5604/30/2023 Contracture, right ankle04/26/2023rimary osteoarthritis of left knee11/08/2016 Primary osteoarthritis of right knee11/08/2016Cervical radiculopathy at C7 03/19/2015Carpal tunnel rarfthzg16/01/2003 Resolved Problems ProblemNoted DateDiagnosed DateResolved DateAcute coughcute non-recurrent frontal psfiokuwy76/ Assessment & Plan (06/17/2024 9:57 AM EST): Sinus congestion X2 weeks Ear ache Has tried OTC regimens with no relief. Will treat with Doxycycline x7 days, Flonase and Zyrtec. Return to office if symptoms worsen or do not improve. Candidiasis of skin/ Assessment & Plan (03/05/2024 11:14 AM EDT): D/t her arm being in a sling, she is requesting we use nystatin powder as cream and ointment is notsomething she can properly use at this time Tjcdivh52/ Assessment & Plan (01/06/2024 10:32 AM EDT): Atb, warm compress, fu if not better Night ieyltn35/04/2024Non-recurrent acute suppurative otitis media of left ear without spontaneous rupture of tympanic rymevmzd03/ Assessment & Plan (06/26/2023 12:25 PM EST): Left sided suppurative otitis media on exam - TM is intact. Likely the underlying reason that resulted in COPD exacerbation. Called in Augmentin for the patient. Anxiety and revpiamrfu94 Assessment & Plan (05/18/2024 6:22 AM EST): [...] medications Fu in 3 months Simple chronic meshawltte55/12/202302/04/2025 Assessment & Plan (07/30/2023 6:11 PM EDT): #2 samples of breztri given exp 11/10 Rinse mouth after use Fu in 6 weeks Assessment & Plan (06/05/2023 11:34 AM EST): Needs new inhaler that insurance will cover Acquired hallux fefwnc71/11/2023Osteoarthritis of knee04/26/2023 12/02/20236572Kdozyfhpwi55 Overview (05/18/2024): Duloxetine and prozac, sertraline in the past PHQ 9=11, MELISSA =5 Assessment & Plan (05/18/2024 10:04 AM EST): Husbands over the last few months, worsened her symptoms Lexapro higher dose causes anhedonia, lower dose no effective Add abilify at 5mg daily Add buspar 5mg BID Fu in 4 weeks PHQ 9=11, MELISSA 7 =5 Encounters DateTypeDepartmentCare KautJdhjnqlwoce63/03/2025bstract [facility] [address] [facility] [address] [place] [id number] Maxim Lanza MD 04/14/2025External Result Encounter [facility] External Department Unsolicited Rio Ennis MD 04/14/2025linisync Result Encounter [facility] External Department Unsolicited Rio Ennis MD 04/02/2025Telephone [facility] [address] [facility] [address] [place] [phone] Renuka Garcia, BOTTLE LABEL INSPECTOR from Last 3 Months Immunizations ImmunizationAdministration DatesNext DueInfluenza, High Dose Seasonal, Preservative Free03/07/2022,03/19/2015,04/27/2014Influenza, injectable, MDCK, preservative free, rsyvxyexxhhe45/17/2024Influenza, injectable, quadrivalent, preservative free04/08/2020,03/20/2019,06/05/2018,02/27/2017,04/03/2016, 03/19/2015,04/27/2014Influenza, intradermal, quadrivalent, preservative free 05/02/2023Influenza, seasonal, mlfwpnvcji84/12/2023Pneumococcal Polysaccharide [id number]/16/2017 Family History Medical HistoryRelationNameCommentsHypertensionBrotherCancerFatherAneurysmMother ArthritisMotherHypertensionMotherHypertensionPaternal GrandfatherHypertension SisterStrokeSisterRelationNameStatusCommentsBrotherDaughterAliveFatherDeceased MotherDeceasedPaternal GrandfatherSisterDeceased Social History Tobacco UseTypesPacks/DayYears UsedDateSmoking Tobacco: FormerCigarettesQuit: 12/29/2015Passive Smoke Exposure: PastSmokeless Tobacco: Never Tobacco Cessation:Counseling Given: Not Answered Alcohol UseStandard Drinks/WeekCommentsNot Currently0 (1 standard drink = 0.6 [...] relatives?Once a week06/04/2023How often do you attend confucianist or sabianism services?1 to 4 times per year06/04/2023o you belong to any clubs or organizations such as confucianist groups, unions, fraternal or athletic groups, or school groups?No06/04/2023How often do you attend meetings of the clubs or organizations you belong to?Never06/04/2023re you , , , , never , or living with a partner?Rkeqqas4906/04/2023UDIT-C AnswerDate RecordedQ1: How often do you have a drink containing alcohol?Monthly or less06/04/2023Q2: How many drinks containing alcohol do you have on a typical day when you are drinking?3 or Q3: How often do you have six or more drinks on one occasion?Less than pzxxhqj0106/04/2023Overall Financial Resource Strain (CARDIA)AnswerDate RecordedHow hard is it for you to pay for the very basics like food, housing, medical care, and heating?Very hard06/04/2023HQ-2 AnswerDate RecordedPatient Health Questionnaire-2 Lduhb200Finbear river valley hospital [place] of Occupational [facility] - Occupational Stress QuestionnaireAnswerDate RecordedDo you feel stress - tense, restless, nervous, or anxious, or unable to sleep at night because yourmind is troubled all the time - these days?Only a bjgieg2106/04/2023Exercise Vital SignAnswerDate RecordedOn average, how many days [...] steady place to sleep or slept in [facility] (including now)?No06/04/2023CommentsUnknownSex and Gender InformationValueDate RecordedSex Assigned at UqbqqZcqfde36/11/2023 4:00 PM EST Legal OkhFcyfcf44/15/2023 7:10 PM EDTGender FfukuwjcNjdnkl71/11/2023 4:00 PM EST Sexual ApkofgybkgaSxbrxmy59/16/2024 10:08 PM EST Last Filed Vital Signs Vital SignReadingTime TakenCommentsBlood Wnnalyrx946/8004 9:18 AM EDT Gmzkm2369/01/2025 9:18 AM WFREarlliwmcjo55.8 ??C (98.2 ??F)08/18/2024 9:18 AM EDTRespiratory Vchs5131 9:18 AM EDTOxygen Vomprhqvbi97%08/18/2024 9:18 AM EDTInhaled Oxygen Concentration--Quuugl300 kg (270 lb 3.2 oz)08/18/2024 9:18 AM LSMYevplf781.1 cm (5' 5 )05/18/2024 9:18 AM ESTBody Mass Index44.9605/18/2024 9:18 AM EST Plan of Treatment Not on file Procedures Procedure NamePriorityDate/TimeAssociated DiagnosisCommentsALL BASIC METABOLIC FGNZWSjlirhn69/26/2025 2:42 PM EST ALL CBC WITH AUTO GHCCLmalxtl86/26/2025 2:42 PM EST URINE CULTURE - RUEASoghixd82/26/2025 1:00 PM EST AEROBIC ROSE CHARGE (NMIC56)Xwmvxfm9104/14/2025 1:00 PM EST [facility] UA (CLEAN/CATCH) MIDDLE SCHOOL TUTOR/MICRO IF IND.Nutxtof1104/14/2025 1:00 PM EST CULTURE, URINE, WOXPIBCVizkkou88/26/2025 1:00 PM EST from Last 3 Months Results * (ABNORMAL) ALL CBC WITH AUTO DIFF (04/14/2025 2:42 PM EST)ComponentValueRef RangeTest MethodAnalysis TimePerformed AtPathologist SignatureTBH WBC8.94.0 - 11.0 10 3/uLTBHTBH RBC4.674.20 - 5.40 10 6/uLTBHTBH HGB13.812.0 - 16.0 g/dLTBH TBH HCT44.536.0 - 48.0 %TBHTBH MCV95.381.0 - 99.0 fLTBHTBH MCH29.626.7 - 34.0 pgTBHTBH MCHC31.029.9 - 35.2 g/dLTBHTBH RDW14.611.0 - 15.0 %TBHTBH HHZ818468 - 450 10 3/uLTBHTBH MPV11.19.5 - 13.5 fLTBHNEUTROPHILS PERCENT AUTO73.043.0 - 75.0 %TBHLYMPHOCYTES PERCENT AUTO12.6(L)20.5 - 60.0 %TBHMONOCYTES PERCENT AUTO 12.1(H)1.7 - 12.0 %TBHTBH EO %1.60.9 - 7.0 %TBHBASOPHILS PERCENT AUTO0.30.2 - 2.0 %TBHIMMATURE GRANULOCYTES PCT AUTO0.40.0 - 0.5 %TBHNEUTROPHILS ABSOLUTE AUTO6.51.4 - 6.5 10 3/uLTBHLYMPHOCYTES ABSOLUTE AUTO1.1(L)1.2 - 3.8 10 3/uLTBH MONOCYTES ABSOLUTE AUTO1.1(H)0.3 - 0.8 10 3/uLTBHTBH EO #0.10.0 - 0.7 10 3/uL TBHBASOPHILS ABSOLUTE AUTO0.00.0 - 0.1 10 3/uLTBHIMMATURE GRANULOCYTES ABS AUTO0.04(H)0.00 - 0.03 10 3/uLTBHSpecimen (Source)Anatomical Location / LateralityCollection Method / VolumeCollection TimeReceived Time04/14/2025 2:42 PM EST04/14/2025 3:01 PM EST Narrative CLINISYNC - 04/14/2025 3:34 PM EST Authorizing ProviderResult TypeResult StatusRugen M Le Roy MDCLINISYNCFinal Result Performing OrganizationAddressCity/State/ZIP CodePhone Number [facility] * (ABNORMAL) ALL BASIC METABOLIC PANEL (04/14/2025 2:42 PM EST)ComponentValueRef RangeTest MethodAnalysis TimePerformed AtPathologist SqzvyrqpnAHHVLJ949819 - 145 mmol/LTBHPOTASSIUM4.03.5 - 5.1 mmol/CXGAOOEUCTSD52692 - 107 mmol/LTBH [place] NCLJXIV41.521.0 - 32.0 mmol/LTBHANION GAP10.2SZLZROJWQH969(H)74 - 106 mg/dLTBHBLOOD UREA PLCTSWJL96.07.0 - 18.0 mg/dLTBHCREATININE1.05(H)0.55 - 1.02 mg/dLTBHTBH EGFR-AF LUXEMBOURGER>60>=60 mL/min/1.73m 2TBHTBH EGFR-NON AF LUXEMBOURGER 54(L)>=60 mL/min/1.73m 2TBHBUN CREATININE RATIO16.3RSEPGFGCBP8.18.5 - 10.1 mg/dLTBHSpecimen (Source)Anatomical Location / LateralityCollection Method / VolumeCollection TimeReceived Time04/14/2025 2:42 PM EST04/14/2025 3:01 PM EST Narrative CLINISYNC - 04/14/2025 3:38 PM EST [facility] DROP OFF Authorizing ProviderResult TypeResult StatusRio Ennis MDCLINISYNCFinal Result Performing OrganizationAddressCity/State/ZIP CodePhone Number DEONNC [facility] * (ABNORMAL) URINE CULTURE - [facility] (04/14/2025 1:00 PM EST)ComponentValueRef RangeTest MethodAnalysis TimePerformed AtPathologist SignatureURINE CULTURE - [facility] ??Urine Culture - [facility] SEEFR FR RESULT^[facility] RESULT (A)TBHURINE [facility]ULTURE - [facility] SEE SCANNED REPORT, ABNORMAL^SEE SCANNED REPORT, ABNORMAL(A)TBHSpecimen (Source)Anatomical Location / LateralityCollection Method / VolumeCollection TimeReceived Time04/14/2025 1:00 PM EST04/14/2025 1:35 PM EST Narrative CLINISYNC - 04/19/2025 11:47 AM EST Authorizing ProviderResult TypeResult StatusRio Ennis MDLAB BLOOD ORDERABLES Final ResultPerforming OrganizationAddressCity/State/ZIP CodePhone Number COREYISYNC [facility] * (ABNORMAL) AEROBIC ROSE CHARGE (NMIC56) (04/14/2025 1:00 PM EST)ComponentValue Ref RangeTest MethodAnalysis TimePerformed AtPathologist SignatureAMIKACIN<16 (S)04/17/2025 8:36 AM [facility] CtrAMOXACILLIN/K CLAVULANATE<8/4(S)04/17/2025 8:36 AM [facility] AMPICILLIN/FIYIPKKNM66/8(I)04/17/2025 8:36 AM [facility] CtrAZTREONAM<4(S)04/17/2025 8:36 AM [facility] CtrCEFAZOLIN <2(S)04/17/2025 8:36 AM [facility] CtrCEFEPIME<2(S) 04/17/2025 8:36 AM [facility] CtrCEFTAZIDIME<1(S)04/17/2025 8:36 AM [facility] CtrCEFTAZIDIME/AVIBACTAM<4(S)04/17/2025 8:36 AM [facility] CtrCEFTOLOZANE/TAZOBACTAM<2(S)04/17/2025 8:36 AM [facility] CtrCEFTRIAXONE<1(S)04/17/2025 8:36 AM [facility] CtrCEFUROXIME8(S)04/17/2025 8:36 AM [facility] CtrCIPROFLOXACIN0.5(I)04/17/2025 8:36 AM [facility] CtrERTAPENEM<0.5(S)04/17/2025 8:36 AM [facility] CtrGENTAMICIN<2(S)04/17/2025 8:36 AM [facility] LEVOFLOXACIN1(I)04/17/2025 8:36 AM [facility] CtrMEROPENEM <1(S)04/17/2025 8:36 AM [facility] CtrMEROPENEM/VABORBACTAM <2(S)04/17/2025 8:36 AM [facility] CtrNITROFURANTOIN>64(R) 04/17/2025 8:36 AM [facility] CtrPIPERACILLIN/TAZOBACTAM<8 (S)04/17/2025 8:36 AM [facility] CtrTETRACYCLINE<4(S) 04/17/2025 8:36 AM [facility] CtrTIGECYCLINE<2(S)04/17/2025 8:36 AM [facility] CtrTOBRAMYCIN<2(S)04/17/2025 8:36 AM [facility] CtrTRIMETHOPRIM/SULFAMETHOXAZOLE>2/38(R)04/17/2025 8:36 AM [facility] CtrSpecimen (Source)Anatomical Location / LateralityCollection Method / VolumeCollection TimeReceived TimeClean-Voided Midstream (Clean Void Midstream)04/14/2025 1:00 PM EST04/14/2025 8:57 PM EST Narrative Authorizing ProviderResult TypeResult StatusRio Ennis MDFIRELANDSFinal Result Performing OrganizationAddressCity/State/[facility] CodePhone Number [facility] [address] [place] [address], [facility] [address] [id number] * (ABNORMAL) [facility] UA (CLEAN/CATCH) MIDDLE SCHOOL TUTOR/MICRO IF IND. (04/14/2025 1:00 PM EST) ComponentValueRef RangeTest MethodAnalysis TimePerformed AtPathologist SignatureCOLOR URINELT. YELLOWYELLOWTBHCLARITY URINECLEARCLEARTBHSPECIFIC GRAVITY URINE1.0151.005 - 1.025TBHPH URINE6.05.0 - 9.0TBHPROTEIN URINE30(A) NEG/TRACE mg/dLTBHGLUCOSE URINE UANEGATIVENEGATIVE mg/dLTBHBILIRUBIN URINE NEGATIVENEGATIVETBHKETONES URINENEGATIVENEGATIVE mg/dLTBHBLOOD URINELARGE(A) NEGATIVETBHNITRITE URINEPOSITIVE(A)NEGATIVETBHUROBILINOGEN URINE0.20.2 - 1.0 EU/dLTBHLEUKOCYTE ESTERASE URINEMODERATE(A)NEGATIVETBHURINE MICROSCOPIC INDICATEDYESTBHSpecimen (Source)Anatomical Location / LateralityCollection Method / VolumeCollection TimeReceived Time04/14/2025 1:00 PM EST04/14/2025 1:35 PM EST Narrative CLINISYNC - 04/14/2025 2:50 PM EST Authorizing ProviderResult TypeResult StatusRio Ennis MDCLINISYNCFinal Result Performing OrganizationAddressCity/State/ZIP CodePhone Number CLINISYNC [facility] * Urine culture (04/14/2025 1:00 PM EST)ComponentValueRef RangeTest Method Analysis TimePerformed AtPathologist SignatureFRMC ORGANISMKlebsiella ugsnjfdcpb37/29/2025 8:36 AM [facility] CtrCOLONY COUNT >100,1894706/17/2024 8:36 AM [facility] CtrSpecimen (Source) Anatomical Location / LateralityCollection Method / VolumeCollection Time Received TimeClean-Voided Midstream (Clean Void Midstream)04/14/2025 1:00 PM EST04/14/2025 8:57 PM EST [facility] 04/17/2025 8:37 AM EST Diagnosis: AMS Comment: Authorizing ProviderResult TypeResult StatusRio GILL MICROBIOLOGY - GENERAL ORDERABLESFinal ResultPerforming OrganizationAddressCity/State/ZIP Code Phone Number [facility] [address] [place] [address], [facility] [address] [place] [address] from Last 3 Months Insurance Care Teams Team MemberRelationshipSpecialtyStart DateEnd Date aMxim Lanza MD PCP - GeneralFamily Medicine07/15/23 Kristin Gracia NP [facility]05/20/22
--- OUTSIDE RECORDS SUMMARY | 2025-04-21 13:08 | XMS_ITS | Encounter Summary ---
Author Organization [facility] Address [address] [place] [address] Care Team Providers Care Podiatry Assistant Name Role Phone HarveyberenicejesicaKristin beltran GREEN PLUMBER Unavailable [phone] Maxim Lanza MD Primary Care Provider [phone] Encounter Details DateTypeDepartmentCare Team (Latest Contact Info)Tovhihlvbow39/26/2025Clinisync Result Encounter [facility] Unsolicited Rio Ennis MD [address] [place] [address] Social History Tobacco UseTypesPacks/DayYears UsedDateSmoking Tobacco: FormerCigarettesQuit: [...] relatives?Once a week06/04/2023How often do you attend gnosticism or holiness services?1 to 4 times per year06/04/2023o you belong to any clubs or organizations such as gnosticism groups, unions, fraManflu or athletic groups, or school groups?No06/04/2023How often do you attend meetings of the clubs or organizations you belong to?Never06/04/2023re you , , , , never , or living with a partner?Prjklqj8606/04/2023UDIT-C AnswerDate RecordedQ1: How often do you have a drink containing alcohol?Monthly or less06/04/2023Q2: How many drinks containing alcohol do you have on a typical day when you are drinking?3 or Q3: How often do you have six or more drinks on one occasion?Less than phnpsqg6606/04/2023Overall Financial Resource Strain (CARDIA)AnswerDate RecordedHow hard is it for you to pay for the very basics like food, housing, medical care, and heating?Very hard06/04/2023HQ-2 AnswerDate RecordedPatient Health Questionnaire-2 [facility] [place] of Occupational Health - Occupational Stress QuestionnaireAnswerDate RecordedDo you feel stress - tense, restless, nervous, or anxious, or unable to sleep at night because yourmind is troubled all the time - these days?Only a iziwyx4806/04/2023Exercise Vital SignAnswerDate RecordedOn average, how many days [...] now)?No06/04/2023CommentsUnknownSex and Gender InformationValueDate RecordedSex Assigned at AqpdoHgrvuk26/11/2023 4:00 PM EST Legal PsxNdsrwq36/15/2023 7:10 PM EDTGender VspfqvsnQckloy42/11/2023 4:00 PM EST Sexual FofdkwkhxtxIhcesac90/16/2024 10:08 PM ESTdocumented as of this encounter Plan of Treatment Not on file documented as of this encounter Procedures Procedure NamePriorityDate/TimeAssociated DiagnosisCommentsALL CBC WITH AUTO RTGVVftyfwm09/26/2025 2:42 PM EST ALL BASIC METABOLIC GUJUNQfgzclw87/26/2025 2:42 PM EST URINE CULTURE - MGQANhseimb59/26/2025 1:00 PM EST [facility] UA (CLEAN/CATCH) COTTON HEADER/MICRO IF IND.Bueyxvn5304/14/2025 1:00 PM EST documented in this encounter Results * (ABNORMAL) ALL BASIC METABOLIC PANEL (04/14/2025 2:42 PM EST)ComponentValueRef RangeTest MethodAnalysis TimePerformed AtPathologist [id number] - 145 mmol/LTBHPOTASSIUM4.03.5 - 5.1 mmol/UDOCNKIFBKRP66563 - 107 mmol/LTBH [place] AJCJRMM12.521.0 - 32.0 mmol/LTBHANION GAP10.1JPTBAJICHK677(H)74 - 106 mg/dLTBHBLOOD UREA LNWLQJZO60.07.0 - 18.0 mg/dLTBHCREATININE1.05(H)0.55 - 1.02 mg/dLTBHTBH EGFR-AF TRINIDADIAN>60>=60 mL/min/1.73m 2TBHTBH EGFR-NON AF TRINIDADIAN 54(L)>=60 mL/min/1.73m 2TBHBUN CREATININE RATIO16.4KTKATZLBGT1.18.5 - 10.1 mg/dLTBHSpecimen (Source)Anatomical Location / LateralityCollection Method / VolumeCollection TimeReceived Time04/14/2025 2:42 PM EST04/14/2025 3:01 PM EST Narrative CLINISYNC - 04/14/2025 3:38 PM EST TRINIDADIAN [employer] DROP OFF Authorizing ProviderResult TypeResult StatusKurtischase Ennis MDCLINISYNCFinal Result Performing OrganizationAddressCity/State/ZIP CodePhone Number [facility] * (ABNORMAL) ALL CBC WITH AUTO DIFF (04/14/2025 2:42 PM EST)ComponentValueRef RangeTest MethodAnalysis TimePerformed AtPathologist SignatureTBH WBC8.94.0 - 11.0 10 3/uLTBHTBH RBC4.674.20 - 5.40 10 6/uLTBHTBH HGB13.812.0 - 16.0 g/dLTBH TBH HCT44.536.0 - 48.0 %TBHTBH MCV95.381.0 - 99.0 fLTBHTBH MCH29.626.7 - 34.0 pgTBHTBH MCHC31.029.9 - 35.2 g/dLTBHTBH RDW14.611.0 - 15.0 %TBHTBH KCL995973 - 450 10 3/uLTBHTBH MPV11.19.5 - 13.5 [...] 04/14/2025 3:34 PM EST Authorizing ProviderResult TypeResult StatusRio Ennis MDCLINISYNCFinal Result Performing OrganizationAddressCity/State/ZIP CodePhone Number CLINISYNC [facility] * (ABNORMAL) [place]ULTURE [place] [facility] [place] (04/14/2025 1:00 PM EST)ComponentValueRef RangeTest MethodAnalysis TimePerformed AtPathologist SignatureURINE CULTURE - [facility] [place] ??Urine Culture - [facility] [place] [facility] [place] (A)[facility] SEE [facility]ANNED REPORT, ABNORMAL^SEE SCANNED REPORT, ABNORMAL(A)TBHSpecimen (Source)Anatomical Location / LateralityCollection Method / VolumeCollection TimeReceived Time04/14/2025 1:00 PM EST04/14/2025 1:35 PM EST Narrative CLINISYNC - 04/19/2025 11:47 AM EST Authorizing ProviderResult TypeResult StatusRio Ennis MDLAB BLOOD ORDERABLES Final ResultPerforming OrganizationAddressCity/State/ZIP CodePhone Number CLINISYNC [facility] * (ABNORMAL) [facility] UA (CLEAN/CATCH) COTTON HEADER/MICRO IF IND. (04/14/2025 1:00 PM EST) ComponentValueRef [...] 04/14/2025 2:50 PM EST Authorizing ProviderResult TypeResult StatusRugen M Loli MDCLINISYNCFinal Result Performing OrganizationAddressCity/State/ZIP CodePhone Number DEONNC [facility] documented in this encounter Visit Diagnoses Not on filedocumented in this encounter Additional Health Concerns AssessmentNoted TimePHQ-9 Depression Total Score: 9:00 AM EST documented as of this encounter Care Teams Team MemberRelationshipSpecialtyStart DateEnd Date Maxim Lanza MD PCP - GeneralFamily Medicine07/15/23 Kristin Gracia NP Primary Care ProviderFamily Medicine05/20/22documented as of this encounter
--- NOTE | 2025-04-21 13:10 | CT_ITS ---
The [address] [address] Patient Name: NITHYA VASQUEZ MRN: [id number] date: 1970 Sex: F Assigned Patient Location: ER Current Patient Location: Accession/Order Number: [id number] Exam Date: 04/21/2025 13:35 Report Date: 04/21/2025 14:06 At the request of: QING SANDOVAL MD Procedure: CT head/brain wo con CT BRAIN WITHOUT CONTRAST: CLINICAL HISTORY: History of brain cancer removed July or September. COMPARISON: CT brain 11/29/2024., 09-18-2024 TECHNIQUE: Contiguous axial unenhanced images were obtained through the brain. This CT exam was performed using one or more following dose reduction techniques: Automated exposure control, adjustment of the mA and/or kV according to patient size, or use of iterative reconstruction technique. FINDINGS: There is significant edema involving the right cerebral hemisphere with potential subarachnoid hemorrhage involving the right frontoparietal region. There is approximately 1 cm midline shift towards the left. There appears to BE CT evidence of developing transtentorial herniation as well. Hypodensity versus artifact is seen involving the mary beth and midbrain. Visualized intraorbital contents demonstrate no acute findings. Visualized paranasal sinuses are clear. Right-sided craniotomy changes. CT/CT head/brain wo con IMPRESSION: SIGNIFICANT EDEMA INVOLVING THE RIGHT CEREBRAL HEMISPHERE WITH POTENTIAL SUBARACHNOID HEMORRHAGIC COMPONENT VERSUS ARTIFACT INVOLVING THE RIGHT FRONTOPARIETAL REGION. THERE IS SIGNIFICANT 1 CM MIDLINE SHIFT TOWARDS THE LEFT WITH LIKELY DEVELOPING TRANSTENTORIAL HERNIATION. THE EDEMA MAY EXTEND INTO THE MIDBRAIN AND MARY BETH. GIVEN THE HISTORY OF BRAIN TUMOR, ADVANCEMENT OF THE PATIENT'S DISEASE CANNOT BE EXCLUDED. FINDINGS WERE DISCUSSED WITH DR. SANDOVAL 2:03 PM 04/21/2025 Impression dictated by: Troy Murray Jr., D.O. 04/21/2025 2:06 PM Dictation Location: [place] [address] Electronically authenticated by: [id number] Y Date: 04/21/2025 14:06
--- NOTE | 2025-04-21 13:10 | ED.GENADUL1 ---
HPI HPI - General Adult General Chief complaint: Recheck/Abnormal Lab/Rx Stated complaint: OTHER Time Seen by Provider: 04/21/25 13:05 Source: patient Mode of arrival: ambulance Limitations: no limitations History of Present Illness HPI narrative: 54-year-old female presented to the emergency department because of the nursing [facility] thought one of her pupils looked bigger than the other 1. She has apparently a history of brain cancer and was treated with radiation and chemotherapy. She states her vision is fine and she does not have a headache. No localized weakness today. Related Data Home Medications ?Medication ?Instructions ?Recorded ?Confirmed acetaminophen 325 mg tablet 650 mg PO Q6H PRN pain 10/17/24 04/21/25 (Tylenol) albuterol sulfate 2.5 mg/3 mL 2.5 mg inhalation Q4H PRN 10/17/24 04/21/25 (0.083 %) solution for nebulization shortness of breath or wheezing sennosides 8.6 mg-docusate sodium 2 tab-cap PO .QHS 10/17/24 04/21/25 50 mg tablet (Senna Plus) trazodone 50 mg tablet 25 mg PO HS 10/17/24 04/21/25 buspirone 7.5 mg tablet 7.5 mg PO BID 11/28/24 04/21/25 docusate sodium 100 mg capsule 100 mg PO BID 11/28/24 04/21/25 (Colace) melatonin 5 mg tablet 5 mg PO DAILY 11/28/24 04/21/25 ceftriaxone 1 gram solution for 1 g IM DAILY 04/21/25 04/21/25 injection cholecalciferol (vitamin D3) 25 25 mcg PO DAILY 04/21/25 04/21/25 mcg (1,000 unit) capsule cyclobenzaprine 10 mg tablet 10 mg PO HS 04/21/25 04/21/25 hydrocodone 5 mg-acetaminophen 325 1 tab PO Q8H PRN pain 04/21/25 04/21/25 mg tablet insulin lispro 100 unit/mL 1 sliding scale dose 04/21/25 subcutaneous solution levetiracetam 500 mg tablet 500 mg PO BID 04/21/25 04/21/25 (Roweepra) lidocaine HCl 10 mg/mL (1 %) 04/21/25 injection solution ondansetron 8 mg disintegrating 8 mg PO Q8H PRN nausea and vomiting 04/21/25 04/21/25 tablet polyethylene glycol 3350 17 17 g PO DAILY 04/21/25 04/21/25 gram/dose oral powder (ClearLax) sertraline 25 mg tablet 25 mg PO DAILY 04/21/25 04/21/25 sertraline 50 mg tablet 50 mg PO DAILY 04/21/25 04/21/25 sulfamethoxazole 800 1 tab PO DAILY 04/21/25 04/21/25 mg-trimethoprim 160 mg tablet (Bactrim DS) Previous Rx's ?Medication ?Instructions ?Recorded ferrous sulfate 325 mg (65 mg 325 mg PO BID #0 tabs 12/02/24 iron) tablet glucagon 1 mg solution for 1 mg IV Q15M PRN Hypoglycemia #0 ea 12/02/24 injection (Glucagon Emergency Kit) metoprolol tartrate 25 mg tablet 25 mg PO BID #0 tabs 12/02/24 Allergies Allergy/AdvReac Type Severity Reaction Status Date / Time No Known Drug Allergies Allergy Verified 11/24/24 18:12 Opioid HPI Opioid Management Most Recent Opioid Data: Last Pain Scale 2 12/01/24, 11:56 Last Pain Intensity 0 10/19/24, 08:26 Last ORT Total Score 0 10/17/24, 07:39 Last ORT Risk Category Low Risk 10/17/24, 07:39 Review of Systems ROS Narrative A ten point review of systems is negative except as noted above. [facility] Medical History (Updated 04/21/25 @ 14:41 by Oren Sandoval MD) Elevated troponin ?R79.89 - Other specified abnormal findings of blood chemistry (ICD-10) Acute diastolic heart failure ?I50.31 - Acute diastolic (congestive) heart failure (ICD-10) Cardiac murmur ?R01.1 - Cardiac murmur, unspecified (ICD-10) Iron deficiency anemia ?D50.9 - Iron deficiency anemia, unspecified (ICD-10) Respiratory acidosis ?E87.29 - Other acidosis (ICD-10) Hypertensive urgency ?I16.0 - Hypertensive urgency (ICD-10) Severe protein-calorie malnutrition ?E43 - Unspecified severe protein-calorie malnutrition (ICD-10) Morbid obesity ?E66.01 - Morbid (severe) obesity due to excess calories (ICD-10) Acute hypoxic respiratory failure ?J96.01 - Acute respiratory failure with hypoxia (ICD-10) Acute combined systolic (congestive) and diastolic (congestive) heart failure ?I50.41 - Acute combined systolic (congestive) and diastolic (congestive) heart failure (ICD-10) Edema, peripheral ?R60.0 - Localized edema (ICD-10) Chronic obstructive pulmonary disease with (acute) exacerbation ?J44.1 - Chronic obstructive pulmonary disease with (acute) exacerbation (ICD-10) Congestive heart failure ?I50.9 - Heart failure, unspecified (ICD-10) Respiratory failure ?J96.90 - Respiratory failure, unspecified, unspecified whether with hypoxia or hypercapnia (ICD-10) Brain mass ?G93.89 - Other specified disorders of brain (ICD-10) Urinary tract infection ?N39.0 - Urinary tract infection, site not specified (ICD-10) Bladder dysfunction ?N31.9 - Neuromuscular dysfunction of bladder, unspecified (ICD-10) Weakness ?R53.1 - Weakness (ICD-10) Dysphagia ?R13.10 - Dysphagia, unspecified (ICD-10) Rhabdomyolysis ?M62.82 - Rhabdomyolysis (ICD-10) Muscle weakness ?M62.81 - Muscle weakness (generalized) (ICD-10) Depression ?F32.A - Depression, unspecified (ICD-10) Sleep apnea ?G47.30 - Sleep apnea, unspecified (ICD-10) Insomnia ?G47.00 - Insomnia, unspecified (ICD-10) Anxiety ?F41.9 - Anxiety disorder, unspecified (ICD-10) Panic disorder ?F41.0 - Panic disorder [episodic paroxysmal anxiety] (ICD-10) Hyperlipemia ?E78.5 - Hyperlipidemia, unspecified (ICD-10) Hypertension ?I10 - Essential (primary) hypertension (ICD-10) Nutritional deficiency ?E63.9 - Nutritional deficiency, unspecified (ICD-10) Bipolar 1 disorder ?F31.9 - Bipolar disorder, unspecified (ICD-10) Pressure injury of sacral region, stage 2 ?L89.152 - Pressure ulcer of sacral region, stage 2 (ICD-10) Obesity ?E66.9 - Obesity, unspecified (ICD-10) Multiple sclerosis ?G35 - Multiple sclerosis (ICD-10) Surgical History History of craniotomy ?Z98.890 - Other specified postprocedural states (ICD-10) Social History Highest level of school completed/degree received: don't know Little interest or pleasure in doing things: not at all Feeling down, depressed, or hopeless: not at all Exam Narrative Exam Narrative: Nurses note and vital signs reviewed General:The patient appears in no apparent distress. Patient is resting comfortably on cart. Skin:Warm, dry, no pallor noted.There is no rash noted. Head:Normocephalic, atraumatic Eye: Normal conjunctiva, no drainage, EOMI. pupils are equally round. They are the same size. Ears, Nose, Mouth, and Throat: oral mucosa is moist. Nares patent. Cardiovascular:Regular Rate and Rhythm Respiratory:Patient is in no distress, no accessory muscle use, lungs are clear to auscultation, no wheezing, rales or rhonchi Back:non-tender GI: Soft and nontender Musculoskeletal: The patient has no evidence of calf tenderness, no pitting edema, symmetrical pulses noted bilaterally Neurological:A&O x4, normal speech Psychiatric:Cooperative Constitutional Vital Signs, click to edit/add: Last Vital Signs Temp 98.1 F 04/21/25 12:58 Pulse 97 H 04/21/25 12:58 Resp 18 04/21/25 12:58 BP 107/92 H 04/21/25 14:55 Pulse Ox 98 04/21/25 12:58 O2 Del Method Room Air 04/21/25 12:58 Course Vital Signs Vital signs: Vital Signs Temperature 98.1 F 04/21/25 12:58 Pulse Rate 97 H 04/21/25 12:58 Respiratory Rate 18 04/21/25 12:58 Blood Pressure 115/86 04/21/25 12:58 Pulse Oximetry 98 04/21/25 12:58 Oxygen Delivery Method Room Air 04/21/25 12:58 Temperature 98.1 F 04/21/25 12:58 Pulse Rate 97 H 04/21/25 12:58 Respiratory Rate 18 04/21/25 12:58 Blood Pressure 107/92 H 04/21/25 14:55 Pulse Oximetry 98 04/21/25 12:58 Oxygen Delivery Method Room Air 04/21/25 12:58 Medical Decision Making MDM Narrative Medical decision making narrative: CT shows what appears to be recurrence of her tumor with midline shift. The patient is awake and alert and she is oriented. Case discussed with Dr. Shukla as well as nurse practitioner Rosenda Arredondo. The patient is accepted at [facility] and the patient is agreeable and stable for transfer. She was given IV Decadron here after speaking to the neurosurgeon. Differential Diagnosis Differential Diagnosis: Brain tumor recurrence, midline shift Lab Data Lab results reviewed: Yes I reviewed the patient's lab results Labs: Lab Results 04/21/25 Range/Units 14:26 WBC 9.0 (4.0-11.0) 10^3/uL RBC 4.80 (4.20-5.40) 10^6/uL Hgb 14.5 (12.0-16.0) g/dL Hct 45.0 (36.0-48.0) % MCV 93.8 (81.0-99.0) fL MCH 30.2 (26.7-34.0) pg MCHC 32.2 (29.9-35.2) g/dL RDW 14.6 (11.0-15.0) % Plt Count 232 (150-450) 10^3/uL MPV 10.9 (9.5-13.5) fL Neut % (Auto) 73.8 (43.0-75.0) % Lymph % (Auto) 10.1 L (20.5-60.0) % [place] % (Auto) 13.3 H (1.7-12.0) % Eos % (Auto) 2.2 (0.9-7.0) % Baso % (Auto) 0.3 (0.2-2.0) % Neut # (Auto) 6.6 H (1.4-6.5) 10^3/uL Lymph # (Auto) 0.9 L (1.2-3.8) 10^3/uL [place] # (Auto) 1.2 H (0.3-0.8) 10^3/uL Eos # (Auto) 0.2 (0.0-0.7) 10^3/uL Baso # (Auto) 0.0 (0.0-0.1) 10^3/uL Abs Immat Gran (auto) 0.03 (0.00-0.03) 10^3/uL Imm/Tot Granulo (auto) 0.3 (0.0-0.5) % Sodium 143 (136-145) mmol/L Potassium 3.8 (3.5-5.1) mmol/L Chloride 107 (98-107) mmol/L Carbon Dioxide 32.4 H (21.0-32.0) mmol/L Anion Gap 7.4 BUN 12.0 (7.0-18.0) mg/dL Creatinine 1.07 H (0.55-1.02) mg/dL Est GFR ( Amer) >60 (>=60 mL/min/1.73m^2) Est GFR (Non-Af Amer) 53 L (>=60 mL/min/1.73m^2) BUN/Creatinine Ratio 11.2 Glucose 94 (74-106) mg/dL Calcium 9.4 (8.5-10.1) mg/dL Imaging Data CT scan - head: Radiologist's impression: ITS Impressions Head CT 04/21/25 13:10 IMPRESSION: SIGNIFICANT EDEMA INVOLVING THE RIGHT CEREBRAL HEMISPHERE WITH POTENTIAL SUBARACHNOID HEMORRHAGIC COMPONENT VERSUS ARTIFACT INVOLVING THE RIGHT FRONTOPARIETAL REGION. THERE IS SIGNIFICANT 1 CM MIDLINE SHIFT TOWARDS THE LEFT WITH LIKELY DEVELOPING TRANSTENTORIAL HERNIATION. THE EDEMA MAY EXTEND INTO THE MIDBRAIN AND MARY BETH. GIVEN THE HISTORY OF BRAIN TUMOR, ADVANCEMENT OF THE PATIENT'S DISEASE CANNOT BE EXCLUDED. FINDINGS WERE DISCUSSED WITH DR. SANDOVAL 2:03 PM 04/21/2025 Impression dictated by: Troy Murray Jr. DDreadODread 04/21/2025 2:06 PM Dictation Location: [place] [address] Electronically authenticated by: [id number] Y Date: 04/21/2025 14:06 Discharge Plan Discharge Chief Complaint: Recheck/Abnormal Lab/Rx Clinical Impression: Brain tumor, Midline shift of brain Patient Disposition: [facility] Time of Disposition Decision: 14:41 Discharge Location: [facility] Condition: Fair Mode of Transportation: EMS
--- OUTSIDE RECORDS SUMMARY | 2025-04-21 13:20 | XMS_ITS | CCD ---
Author Organization [facility] Care Team Providers Care Bulk Loader Name Role Phone , August MEDICAL SECRETARY Unavailable Unavailable August MEDICAL SECRETARY Unavailable Unavailable August MEDICAL SECRETARY Unavailable Unavailable Jaleesa Lara Unavailable [facility], [facility] Primary Care Provider MD Liyah Rosa Attending Provider [phone] Valdez Acosta MD Primary Care Provider [phone] Liyah Rosa Unavailable [phone] Valdez Acosta MD Primary Care Provider Valdez Acosta MD Primary Care Provider AICHHOLZ, MEDICAL SECRETARY FRED Admitting Unavailable AICHHOLZ, MEDICAL SECRETARY FRED Attending Unavailable AICHHOLZ, MEDICAL SECRETARY FRED Primary Care Unavailable TAMLYN ., YAHAIRA Consulting Unavailable TAMLYN ., YAHAIRA Admitting Unavailable TAMLYN ., YAHAIRA Attending Unavailable AICHHOLZ, MEDICAL SECRETARY FRED Primary Care Unavailable TAMLYN ., YAHAIRA Consulting Unavailable THEA LYNN Consulting Unavailable YASH CALLAHAN Consulting Unavailable AICHHOLZ, MEDICAL SECRETARY FRED Admitting Unavailable AICHHOLZ, MEDICAL SECRETARY FRED Attending Unavailable AICHHOLZ, MEDICAL SECRETARY FRED Primary Care Unavailable AICHHOLZ, MEDICAL SECRETARY FRED Consulting Unavailable AICHHOLZ, MEDICAL SECRETARY FRED Admitting Unavailable AICHHOLZ, MEDICAL SECRETARY FRED Attending Unavailable AICHHOLZ, MEDICAL SECRETARY FRED Primary Care Unavailable AICHHOLZ, MEDICAL SECRETARY FRED Consulting Unavailable ML, DR ANTUNEZ Admitting Unavailable MISC, DR ANTUNEZ Attending Unavailable AICHHOLZ, MEDICAL SECRETARY FRED Primary Care Unavailable MISC, DR ANTUNEZ Consulting Unavailable Aichholz CARDIOLOGY FELLOW, Fred Unavailable Maxim Lanza MD Primary Care Provider Valdez Acosta MD Primary Care Provider VINCE, JESSICA Referring Unavailable PARIS TOLEDO Attending Unavailable DAHBAR, MAZEN Primary Care Unavailable ELIAZAR VAZQUEZ Attending Unavailable DAHBAR, MAZEN Primary Care Unavailable LASHAUN VASQUEZ Attending Unavailable YOUNG, JESSICA Referring Unavailable DAHBAR, MAZEN Primary Care Unavailable YOUNG, JESSICA Referring Unavailable YOUNG, JESSICA Attending Unavailable DAHBAR, MAZEN Primary Care Unavailable SARTHAK SECOBAR Referring Unavailable DAHBAR, MAZEN Primary Care Unavailable , AUGUST L Primary Care Physician Unavailab no AGUILERA, AUGUST Primary Care Unavailable Brooks, Eliazar T Referring Unavailable Brooks, Eliazar T Attending Unavailable Brooks, Eliazar T Admitting Unavailable NONE, XXXX Primary Care Physician Unavailab Keli Montanez Unavailable Unavailable Aichholz CARDIOLOGY FELLOW, Fred Unavailable Myla BENITEZ, Maxim Primary Care Provider [phone] Sarah FIGUEROA, Sherrie Unavailable [phone] John TILE FITTER.RUBINA, Elizabeth Lantigua Unavailable [phone] SHERRIE BOONE Attending Unavailabl e MONIKAHCHAD PEARLA [...] AICHHOLZ, FRED Attending Unavailable Yasmani BENITEZ, Tripp Simon Attending Provider [phone] AICHHOLZ, FRED J Primary Care Unavailable BETO VERÓNICADANIEL M Admitting Unavailable ONLY), [facility] (INPATIENT Consult ing Unavailable СЕРГЕЙ LYNCH Attending Unavailable TAHIR, MUNIRA Attending Unavailable TAHIR, MUNIRA Referring Unavailable AICHHOLLee, FRED J Primary Care Unavailable TAHIR, MUNIRA Attending Unavailable TAHIR, MUNIRA Referring Unavailable AICHVICKY, FRED J Primary Care Unavailable Aichholz TILE FITTER-MEDICAL SECRETARY, Fred J Primary Care Provider PROVIDER, UNKNOWN Attending Unavailable PROVIDER, UNKNOWN Admitting Unavailable Aichholz TILE FITTER-MEDICAL SECRETARY, Fred J Primary Care Provider Aichholz TILE FITTER-MEDICAL SECRETARY, Fred J Primary Care Provider Alonzo Holguin MD Attending Provider [phone] Storm Chapman MD Attending Provider [phone] NON STAFF Primary Care Provider UnavailSARY Pittman Primary Care Physician Miri Muniz DO Attending Provide r Tripp Gruber Admitting Unavailable Tripp Gruber Attending Unavailable Alonzo Holguin Admitting Unavailable Alonzo Holguin Attending Unavailable Miri Muniz Admitting Unav ailable Miri Muniz Attending Unav ailable FRED GRACIA Primary Care Unavailable MIRIAM CHURCH Consulting Unavailable JUNG, MURAD H Admitting Unavailable JULIO FERNANDEZ Attending Unavailable JAIR ESPINAL Consulting Unavailable [facility], INCDread Consulti aline Unavailable CARDIOLOGY, [facility] Consulting Unavailable SKYE LARA Consulting Unavailab le LANE FERNANDEZI Keri Referring Unavailable BASIL, FRED J Primary Care Unavailable Stephanie Aguillon DO Attending Provider [phone] FRED GRACIA J Referring Unavailable AICHHOLLee, FRED J Primary Care Unavailable REJI GARCIA Attending Unavailable FRED GRACIA Referring Unavailable AICHHOLLee, FRED J Primary Care Unavailable AICHVICKY, FRED J Referring Unavailable AICHVICKY, FRED J Primary Care Unavailable REJI GARCIA Attending Unavailable AICHHOLZ, FRED J Referring Unavailable AICHHOLZ, FRED J Primary Care Unavailable AICHHOLZ, FRED J Referring Unavailable AICHHOLZ, FRED J Primary Care Unavailable Silvia Bustos Attending Unavailable REGINA MATTHEWS Attending Unavailable Silvia Bustos Attending Unavailable REGINA MATTHEWS Attending Unavailable AICHHOLZ, FRED J Referring Unavailable AICHHOLZ, FRED J Primary Care Unavailable ADONAY CASTILLO Attending Unavailable GUILLERMO MENDOZA Attending Unavailable REJI GARCIA Referring Unavailable AICHHOLZ, FRED J Primary Care Unavailable AICHHOLZ, FRED J Referring Unavailable AICHHOLZ, FRED J Primary Care Unavailable AICHHOLZ, FRED J Primary Care Unavailable RICHIE SANDOVAL Attending Unavailable RICHIE SANDOVAL Referring Unavailable AICHHOLZ, FRED J Referring Unavailable AICHHOLZ, FRED J Primary Care Unavailable AICHHOLZ, FRED J Primary Care Unavailable RICHIE SANDOVAL Referring Unavailable AICHHOLZ, FRED J Referring Unavailable AICHHOLZ, [...] Unavailable AICHHOLZ, FRED J Primary Care Unavailable FRED GRACIA Referring Unavailable FRED GRACIA Primary Care Unavailable GUILLERMO MENDOZA Attending Unavailable GUILLERMO MENDOZA Referring Unavailable FRED GRACIA Primary Care Unavailable GUILLERMO MENDOZA Attending Unavailable FRED GRACIA Referring Unavailable FRED GRACIA Primary Care Unavailable FRED GRACIA Referring Unavailable FRED GRACIA Primary Care Unavailable Allergies Allergy ClassificationReported Allergen(s)Allergy TypeDate of OnsetReaction(s) Facility (1 source)-No Environmental [facility]ies[facility] Phone: (2 sources)Acetaminophen / HYDROcodone; Translations: [Vicodin]Drug Allergy [facility] (2 sources)Penicillins; Translations: [penicillins]Propensity to adverse reactions (disorder)[facility] Medications Current Medications MedicationDrug Class(es)DatesSig (Normalized)Sig (Original)acetaminophen 325 mg oral capsule (20 sources)Start: 53-04-1477xpat 1 capsule by mouth every six hours as needed Acetaminophen 325 mg capsule Active 325 MG PO Every 6 hours as needed November 19, 2024 12:00am Complies with drug therapyStart: 80-93-4931scya 1000 mg by mouth every six hours as needed for painTylenol 1,000 mg, Oral, q6hr, PRN as needed for pain Start Date: 06/30/16 Status: Ordered Repeat number: 1take 2 tablets by mouth every six hours as needed for painacetaminophen (TYLENOL) 325 mg tablet Take 2 tablets (650 mg total) by mouth every 6 (six) hours asneeded for pain. Active End: 68-21-9930yuejiiqcxkbqf (Tylenol) 500 MG tablet Take by mouth 08/18/2024 Discontinued (Therapy completed)acetaminophen 325 mg / HYDROcodone bitartrate 5 mg oral tablet (6 sources)Opioid AgonistStart: 50-77-3272vogw 1 tablet by mouth every eight hours as needed for painHYDROcodone-acetaminophen (NORCO) 5-325 mg per tablet Take 1 tablet by mouth every 8 (eight) hours as needed for pain. 01/11/2025 Activeacetaminophen 325 mg / oxyCODONE hydrochloride 5 mg oral tablet (20 sources)Opioid AgonistStart: 78-01-6385wtll 1-2 tablets by mouth every four hours as needed for painPercocet 5 mg-325 mg oral tablet See Instructions, 40 tab(s), Refill(s) 0, Take one to two oral every 4 hours as needed for shoulder surgical pain., [employer] #72, 167.7, cm, 02/05/24 11:09:00 EDT, Height/Length Dosing, 131.3, kg, 02/05/24 11:09:00 EDT, Weight Dosing Start Date: 02/06/24 Status: OrderedStart: 02-06-2024 End: 46-87-3759Cvuvpzip 5 mg-325 mg oral tablet See Instructions, 40 tab(s), Refill(s) 0, Take one to two oral every 4 hours as needed for shoulder surgical pain., [employer] #72, 167.7, cm, 02/05/24 11:09:00 EDT, Height/Length Dosing, 131.3, kg, 02/05/24 11:09:00 EDT, Weight Dosing Start Date: 02/06/24 Status: Ordered Quantity: 40.0 Unit: tab(s) Repeat number: 1 Indications: Other specified joint disorders, left shoulder;albuterol 0.83 mg/ml inhalation solution (20 sources)beta2-Adrenergic AgonistStart: 29-57-5468acnk 2.5 mg by inhalation every four hours as neededAlbuterol Sulfate 2.5 mg /3 mL (0.083 %) solution for nebulization Active 2.5 MG INHALATION Every 4hours as needed November 19, 2024 12:00am Complies with drug therapyStart: 49-30-7599flbt 2 puff(s) by inhalation every six hours for wheezingalbuterol HFA (Ventolin HFA) 90 mcg/act inhaler Indications: Chronic bronchitis, unspecified chronic bronchitis type (HCC) Inhale 2 puffs every 6 (six) hours if needed for wheezing or shortness of breath 18 g 1 10/10/2023 ActiveStart: 14-80-6206zxnf 2 puff(s) by mouth every six hours as needed for wheezingalbuterol HFA (PROVENTIL HFA, VENTOLIN HFA) 90 mcg/actuation inhaler INHALE 2 PUFFS BY MOUTH EVERY 6 HOURS NEEDED FOR WHEEZING FOR SHORTNESS OF BREATH 06/05/2023 ActiveStart: 06-05-2023 End: 70-79-2611hupu 2 puff(s) by inhalation every six hours for wheezing albuterol HFA (Ventolin HFA) 90 mcg/act inhaler Indications: Chronic bronchitis, unspecified chronic bronchitis type (CMS/HCC) Inhale 2 puffs every 6 (six) hours if needed for wheezing or shortness of breath 18 g 1 06/05/2023 07/05/2023 Activetake 2.5 mg by inhalation every four hours as needed for wheezing albuterol (PROVENTIL,VENTOLIN) 2.5 mg /3 mL (0.083 %) nebulizer solution Inhale 3 mL (2.5 mg total)by nebulization every 4 (four) hours as needed for wheezing. ActiveComment on above:INHALE 2 PUFFS BY MOUTH EVERY 6 HOURS NEEDED FOR WHEEZING FOR SHORTNESS OF BREATHalbuterol 0.833 mg/ml / ipratropium bromide 0.167 mg/ml inhalation solution (1 source)Anticholinergic, beta2-Adrenergic AgonistStart: 65-31-6048gfuw 3 mL by inhalation every six hours as needed for wheezing and dyspneaamoxicillin 875 mg oral tablet (4 sources)Penicillin-class AntibacterialStart: 04-14-2024 End: 63-28-9979gxma 1 tablet by mouth in the morningamoxicillin (Amoxil) 875 MG tablet Indications: Acute non-recurrent sinusitis of other sinus Take 1tablet (875 mg) by mouth in the morning and 1 tablet (875 mg) before bedtime. Do all this for 10 days. 20 tablet 04/14/2024 04/27/2024 Discontinued (Therapy completed)amoxicillin 875 mg / clavulanate 125 mg oral tablet (4 sources)Penicillin-class AntibacterialStart: 02-03-2024 End: 57-41-9770tkpa 1 tablet by mouth in the morningamoxicillin-clavulanate (Augmentin) 875-125 MG tablet Indications: Diverticulitis Take 1 tablet (875 mg) by mouth in the morning and 1 tablet (875 mg) before bedtime. Do all this for 10 days. Take with food. 20 tablet 02/03/2024 02/13/2024 ActiveStart: 06-26-2023 End: 48-38-8228mtuz 1 tablet by mouth in the morningamoxicillin-clavulanate (Augmentin) 875-125 MG tablet Indications: COPD with exacerbation (CMS/HCC)Take 1 tablet (875 mg) by mouth in the morning and 1 tablet (875 mg) before bedtime. Do all this for 10 days. 20 tablet 0 06/26/2023 07/06/2023 ActiveARIPiprazole 10 mg oral tablet (16 sources)Atypical AntipsychoticStart: 07-07-2024 End: 21-34-7954bwuj 1 tablet by mouth once dailyARIPiprazole (Abilify) 10 MG tablet Indications: Major depressive disorder, recurrent, moderate (HCC) , Generalized anxiety disorder with panic attacks Take 1 tablet (10 mg) by mouth Daily 30 tablet 2 07/07/2024 ActiveStart: 05-18-2024 End: 39-21-9691cojh 1 tablet by mouth once dailyARIPiprazole (Abilify) 5 MG tablet Indications: Moderate episode of recurrent major depressive disorder (CMS/HCC) , Generalized anxiety disorder with panic attacks (CMS/HCC) Take 1 tablet (5 mg) by mouth Daily 30 tablet 1 05/18/2024 Activebenzonatate 100 mg oral capsule (1 source)Non-narcotic AntitussiveStart: 06-26-2023 End: 76-96-0173wpyr 1 capsule by mouth three times daily as needed for cough benzonatate (Tessalon Perles) 100 MG capsule Indications: COPD with exacerbation (CMS/HCC) Take 1 capsule (100 mg) by mouth 3 (three) times a day as needed for cough for up to 7 days Do not crush or chew. 20 capsule 0 06/26/2023 07/03/2023 ActiveBiotene Moisturizing [place]outh [place] oral (1 source)Start: 80-79-9763ozrn 1 spray(s) by mouth onceBiotene Moisturizing [place]outh [place] oral 6x/Day, Refill(s) 0 Start Date: 02/17/25 Status: Ordered Repeat number: 1bisacodyl 10 mg rectal suppository (1 source)Stimulant LaxativeStart: 24-18-2922pwionrjnhrvrrpi maleate 0.4 mg/ml / dextromethorphan hydrobromide 2 mg/ml / pseudoephedrine hydrochloride 6 mg/ml oral solution (1 source)alpha-Adrenergic Agonist, Uncompetitive U-wyxdps-A-aspartate Receptor Antagonist, Sigma-1 AgonistStart: 04-15-2024 End: 93-24-6294ktof 10 mL by mouth every eight hours for cough cqyuczaubhjzafu-mrmnlovknsestcx-LW 30-2-10 MG/5ML syrup Indications: Acute cough Take 10 mL by mouth every 8 (eight) hours if needed for congestion or cough for up to 7 days 210 mL 04/15/2024 04/22/2024 Ghrssm943 actuat budesonide 0.16 mg/actuat / formoterol fumarate 0.0048 mg/actuat / glycopyrrolate 0.009 m g/actuat metered dose inhaler (14 sources)Corticosteroid, beta2-Adrenergic AgonistStart: 12-02-2023 End: 53-33-0485bmul 2 puff(s) by mouth in the morning Mvdhcsy-Tkgvsxwqtsl-Psbnupvnbz (Breztri Aerosphere) 160-9-4.8 MCG/ACT aerosol Indications: Chronic bronchitis, unspecified chronic bronchitis type (CMS/HCC) Inhale 2 puffs in the morning and 2 puffs before bedtime. Rinse mouth after use. 3 g 1 12/02/2023 03/01/2024 Activebumetanide 2 mg oral tablet (20 sources)Loop DiureticStart: 11-06-2024 End: 43-79-5779epsynniciw (BUMEX) 2 mg tablet 11/06/2024 ActivebuPROPion hydrochloride 75 mg oral tablet (1 source)AminoketoneStart: 86-64-7133luni 1 tablet by mouth once daily Wellbutrin 75 mg Tab 75 mg = 1 tab(s), Oral, Daily Start Date: 06/30/16 Status: OrderedbusPIRone hydrochloride 7.5 mg oral tablet (20 sources)Start: 17-31-8014nmnCUFpdt (BUSPAR) 7.5 mg tablet Take 1 tablet (7.5 mg total) by mouth. 09/15/2024 ActiveStart: 54-82-2518bohZIOmgk (BUSPAR) 7.5 mg tablet Take 1 tablet (7.5 mg total) by mouth. 09/15/2024 ActiveStart: 08-18-2024 End: 24-38-5454ufmp 1 tablet by mouth every eight hoursbusPIRone (Buspar) 7.5 MG tablet Indications: Generalized anxiety disorder with panic attacks Take 1 tablet (7.5 mg) by mouth every 8 (eight) hours if needed (anxiety) 90 tablet 08/18/2024 ActiveStart: 07-07-2024 End: 80-79-0477ohpo 1 tablet by mouth in the morning, then take 1 tablet by mouth in the evening, then take 1 tablet by mouth at bedtimebusPIRone (Buspar) 5 MG tablet Indications: Generalized anxiety disorder with panic attacks (CMS/HCC ) Take 1 tablet (5 mg) by mouth in the morning and 1 tablet (5 mg) in the evening and 1 tablet (5 mg) before bedtime. 90 tablet 1 07/07/2024 08/18/2024 Discontinued (Ineffective)Start: 05-18-2024 End: 29-37-6020grap 1 tablet by mouth in the morningbusPIRone (Buspar) 5 MG tablet Indications: Generalized anxiety disorder with panic attacks (CMS/HCC) Take 1 tablet (5 mg) by mouth in the morning and 1 tablet (5 mg) before bedtime. 60 tablet 1 05/18/2024 Nuccss580 ml calcium gluconate 20 mg/ml injection (1 source)Start: 45-37-9860Ntdwb Tab (2 sources)Start: 70-52-0050dlku 1 tablet by mouth four times dailyFiber Tabs mg, Oral, QID, Refills(s) 0 Start Date: 10/09/24 Status: Ordered Repeat number: 1 cetirizine hydrochloride 10 mg oral tablet (15 sources)Histamine-1 Receptor AntagonistStart: 06-17-2024 End: 74-96-5361afpu 1 tablet by mouth once dailycetirizine (ZyrTEC) 10 MG tablet Indications: Acute non-recurrent frontal sinusitis Take 1 tablet (10 mg) by mouth Daily 30 tablet 2 06/17/2024 Activecholecalciferol 0.05 mg chewable tablet (20 sources)Vitamin DStart: 65-40-8785fgbcaxvhmuphrvv, vitamin D3, 50 mcg (2,000 unit) tablet,chewable Chew 25 mcg and swallow in the morning. 02/17/2025 Active Start: 62-17-2927sfgp 1 tablet by mouth once dailycholecalciferol 50 mcg (2000 intl units) oral tablet, chewable mcg tab(s), Oral, Daily, Refills(s) 0 Start Date: 02/17/25 Status: Ordered Repeat number: 1Start: 33-20-8573vaum 1 tablet by mouth once dailyCholecalciferol (Vitamin D3) 25 mcg (1,000 unit) tablet Active 1500 UNIT PO Daily January 142:00am Complies with drug therapy Cholecalciferol, Vitamin D3, (VITAMIN D) 25 mcg (1,000 unit) cap Take 1,000 Units by mouth once daily. Active End: 03-95-7698fmzw 1 capsule by mouth once dailyCholecalciferol, Vitamin D3, 1,000 unit cap Take 1,000 Units by mouth once daily. 0 03/16/2022 Discontinued Comment on above:Take 1,000 Units by mouth once daily.cyclobenzaprine hydrochloride 10 mg oral tablet (8 sources)Muscle RelaxantStart: 07-37-3096sotl 1 tablet by mouth once daily cyclobenzaprine (FLEXERIL) 10 mg tablet Take 1 tablet (10 mg total) by mouth nightly. 03/01/2025 ActiveStart: 06-14-2018 End: 92-06-2488JWEPUIFHHQKUXNH 10 [place] [facility] [place] Provider: Start: 05-30-2017 End: 58-72-3191TWHAJHNDTLXTDIH 10 [place] [facility] [facility] [place] Provider: Start: 67-69-4795mhuq 2 tablets by mouth twice daily as needed for muscle spasms cyclobenzaprine 10 mg Tab 20 mg = 2 tab(s), Oral, BID, PRN for spasm Start Date: 06/30/16 Status: Ordereddexamethasone 4 mg oral tablet (20 sources)CorticosteroidStart: 82-46-6913cwhHLUDVmbkhh (DECADRON) 4 mg tablet Take by mouth. 10/09/2024 ActiveStart: 36-81-8001rtlk 1 mg by mouth twice daily dexamethasone 1.5 mg oral tablet mg tab(s), Oral, BID, Refills(s) 0 Start Date: 10/09/24 Status: Ordered Repeat number: 1Start: 91-94-4642fwwf 1 mg by mouth twice dailydexamethasone 2 mg oral tablet mg tab(s), Oral, BID, Refills(s) 0 Start Date: 10/09/24 Status: Ordered Repeat number: 1Start: 09-28-2024 End: 04-45-9324aifl 2 tablets by mouth three times daily, then take 1.5 tablets by mouth three times daily, then take 1.5 tablets by mouth twice daily, then take 1 tablet by mouth twice dailydexAMETHasone (DECADRON) 2 mg tablet Take 2 tablets (4 mg total) by mouth 3 (three) times a day for1 day, THEN 1.5 tablets (3 mg total) 3 (three) times a day for 3 days, THEN 1.5 tablets (3 mg total) 2 (two) times a day for 3 days, THEN 1 tablet (2 mg total) 2 (two) times a day for 3 days. 09/28/2024 10/08/2024 ActiveStart: 09-19-2024 End: 54-41-5969mevgaenu fumarate 240 mg delayed release oral capsule (1 source)Start: 75-43-1410xzxo 240 mg by mouth twice dailyTecfidera 240 mg, Oral, BID Start Date: 06/30/16 Status: Ordereddocusate sodium 100 mg oral capsule (10 sources)Start: 15-13-7186utvi 1 capsule by mouth in the morning, then take 1 capsule by mouth at bedtimedocusate sodium (COLACE) 100 mg capsule Take 1 capsule (100 mg total) by mouth in the morning and 1capsule (100 mg total) before bedtime. 02/17/2025 ActiveStart: 34-17-5894empf 1 capsule by mouth twice dailyDocusate Sodium (Colace) 100 mg capsule Active 100 MG PO Twice daily November 19, 2024 12:00am Complies with drug therapydocusate sodium 50 mg / sennosides, penitentiary 8.6 mg oral tablet (20 sources)Start: 92-56-2929llob 2 tablets by mouth once dailysennosides- docusate sodium (SENOKOT-S) 8.6-50 mg Take 2 tablets by mouth nightly. 09/28/2024 ActiveStart: 09-19-2024 End: 06-62-1963tgyxrdtyfwz monohydrate 100 mg oral capsule (3 sources)Tetracycline-class DrugStart: 16-36-0183vrkeyohhvrj monohydrate 100 mg oral capsule 100 mg = 1 cap(s), Refills(s) 0 Start Date: 02/17/25 Status: Ordered Repeat number: 1Start: 06-17-2024 End: 62-68-7560jbkcdxwxxrn (Vibramycin) 100 MG capsule Indications: Acute non- recurrent frontal sinusitis Take 1 capsule (100 mg) by mouth in the morning and 1 capsule (100 mg) before bedtime. Do all this for 7 days. Take with at least 8 ounces (large glass) of water, do not lie down for 30 minutes after. 14 capsule 06/17/2024 06/24/2024 Active0.4 ml enoxaparin sodium 100 mg/ml prefilled syringe (1 source)Low Molecular Weight HeparinStart: 18-19-2231gcsttddllyhm 10 mg oral tablet (20 sources)Serotonin Reuptake InhibitorStart: 07-47-3215vycr 1 tablet by mouth once dailyescitalopram 10 mg Tab = 1 tab(s), Oral, Daily, Refills(s) 0 Start Date: 11/17/24 Status: Ordered Repeat number: 1Start: 07-07-2024 End: 39-36-1347jaak 1 tablet by mouth once dailyescitalopram 10 mg Tab = 1 tab(s), Oral, Daily, Refills(s) 0 Start Date: 11/17/24 Status: Ordered Repeat number: 1Start: 05-18-2024 End: 96-73-7131xneq 1 tablet by mouth once dailyescitalopram (Lexapro) 10 MG tablet Indications: Moderate episode of recurrent major depressive disorder (CMS/HCC) , Generalized anxiety disorder with panic attacks (CMS/HCC) Take 1 tablet (10 mg) bymouth Daily 30 tablet 1 05/18/2024 ActiveStart: 04-27-2024 End: 36-42-0159oqsh 1 tablet by mouth once dailyescitalopram (Lexapro) 20 MG tablet Indications: Anxiety and depression (CMS/HCC) Take 1 tablet (20mg) by mouth Daily 30 tablet 1 04/27/2024 05/18/2024 Discontinued (Therapy completed) Start: 03-05-2024 End: 08-13-2131uvqo 1 tablet by mouth once dailyescitalopram (Lexapro) 20 MG tablet Indications: Anxiety and depression (CMS/HCC) Take 1 tablet (20mg) by mouth Daily 30 tablet 1 03/05/2024 ActiveStart: 12-02-2023 End: 61-00-9183lsce 1 tablet by mouth once dailyescitalopram (Lexapro) 10 MG tablet Indications: Anxiety and depression (CMS/HCC) Take 1 tablet (10mg) by mouth Daily 90 tablet 1 12/02/2023 03/05/2024 Discontinued (Ineffective)Start: 61-86-0870mmmm 1 tablet by mouth in the morningescitalopram (Lexapro) 10 MG tablet Indications: Anxiety and depression (CMS/HCC) Take 1 tablet (10mg) by mouth in the morning. 90 tablet 1 06/05/2023 ActiveEstrogens, Conjugated ([facility]) / medroxyPROGESTERone (1 source)Progestin, EstrogenStart: 55-71-9471wswmwoa sulfate 325 mg delayed release oral tablet (7 sources)Start: 53-39-6373ylqo 1 tablet by mouth twice dailyFerrous Sulfate 325 mg (65 mg iron) tablet,delayed release (DR/EC) Active 325 MG PO Twice daily December 29, 2024 12:00am Complies with drug therapyfluconazole 150 mg oral tablet (1 source)Azole AntifungalStart: 86-92-3853zifi 1 mg by mouth oncefluconazole 150 mg Tab mg tab(s), Oral, Once, Refills(s) 0 Start Date: 02/17/25 Status: Ordered Repeat number: 1fluticasone propionate 0.05 mg/actuat metered dose nasal spray (7 sources)CorticosteroidStart: 06-17-2024 End: 00-20-4697phwc 1-2 spray(s) nasal route once dailyfluticasone (Flonase) 50 MCG/ACT nasal spray Indications: Acute non-recurrent frontal sinusitis Admi nister 1-2 sprays into each nostril Daily Shake gently. Before first use, prime pump. After use, clean tip and replace cap. 16 g 2 06/17/2024 08/18/2024 Discontinued (Therapy completed)glucagon (rdna) 1 mg injection (8 sources)Antihypoglycemic AgentStart: 14-87-6912sqmjasuq HCL (GLUCAGON, HCL, EMERGENCY KIT) 1 mg recon soln 1 mg every 15 (fifteen) minutes as needed. 02/17/2025 ActiveStart: 77-93-0910oswlpcrd Injection 1 mg Once, Refills(s) 0 Start Date: 02/17/25 Status: Ordered Repeat number: 1Start: 77-63-7676Gjyeqvkc Hcl (Glucagon (Hcl) Emergency Kit) 1 mg recon soln Active 1 MG SUBCUT Q20M as needed January 14, 2025 12:00am until target blood sugar attained Complies with drug therapyStart: ml glucose 500 mg/ml prefilled syringe (2 sources)Start: 45-38-4575Pbkfm: ml hydrALAZINE hydrochloride 20 mg/ml injection (1 source)Arteriolar VasodilatorStart: 93-96-7632jdst 10 mg intravenously every six hours as neededinsulin lispro 100 unt/ml injectable solution (7 sources)Insulin AnalogStart: 98-89-8677zazcvqa lispro 100 units/mL injectable solution 5 unit(s), SubCutaneous, TIDAC, # 10 mL, Refills(s)0 Start Date: 02/17/25 Status: Ordered Quantity: 10.0 Unit: mL Repeat number: 1Start: 57-20-3379Ehsuspx Lispro 100 unit/mL insulin pen Active 1 sliding scale dose SUBCUT Use as Directed January 14, 2025 12:00am Complies with drug therapy Start: 67-86-6742wxtatx 1 mL by subcutaneous injection in the morninginsulin lispro (HumaLOG) 100 unit/mL injection Inject 1 mL (100 Units total) under the skin in the morning and 1 mL (100 Units total) before bedtime. Per sliding scale, twice a day if blood sugar is less than 50, call MD. If blood sugar is 150-200 give 2 units. 201-250 give 4 units. 251-300 give 6 units. 301-350 give 8 units. If 351-400 give 10 units. If gre. 12/31/2024 Activeiv contrast (will be provided with radiology test) (5 sources)Start: 07-16-2023 End: 94-19-4549xvrdma 1 dose intravenously onceiv contrast (will be provided with radiology test) [...] guidelines link 1 Each 0 07/16/2023 07/17/2023 ActiveStart: 08-30-2022 End: 04-87-4893fjqvsn 1 dose intravenously onceiv contrast (will be provided with radiology test) [...] guidelines link 1 Each 0 08/30/2022 08/31/2022 ActiveStart: 08-30-2022 End: 29-23-4604uq contrast (will be provided with radiology test) MRI CSP Inject, intravenously, [...] guidelines link. 1 Each 0 08/30/2022 08/31/2022 ActiveStart: 11-14-2021 End: 45-44-9186gxrkks 1 dose intravenously onceiv contrast (will be provided with radiology test) [...] guidelines link 1 Each 0 11/14/2021 11/15/2021 ActiveStart: 09-15-2021 End: 49-31-7008fszyqh 1 dose intravenously onceiv contrast (will be provided with radiology test) [...] guidelines link 1 Each 0 09/15/2021 09/16/2021 ActiveComment on above:MRI Brain Inject, intravenously, once for 1 dose.No IV access, insert saline lock prior to beginning of sedation, infusion, injection of imaging exam.Discontinue saline lock post exam. If Pt. has a central line or IVAD, may access for administration according to line specific nursing protocol.Once exam is complete flush line and de-access according to line specific nursing protocol in the MR contrast administration guidelines linkMRI CSP Inject, intravenously, once for 1 dose. No IV access, insert saline lock prior to the beginning of sedation, infusion, injection of imaging exam. Discontinue saline lock post exam. If Pt. hasa central line or IVAD, may access for administration according to line specific nursing protocol. Once exam is complete flush line and de-access according to line specific nursing protocol in the MRcontrast administration guidelines link. 4 ml labetalol hydrochloride 5 mg/ml cartridge (2 sources)beta-Adrenergic BlockerStart: 09-19-2024 End: 36-39-2719fimCXKPElkcqf 500 mg oral tablet (20 sources)Start: 30-60-7039qrmu 1 tablet by mouth in the morning, then take 1 tablet by mouth at bedtimelevETIRAcetam (KEPPRA) 500 mg tablet Take 1 tablet (500 mg total) by mouth in the morning and 1 tablet (500 mg total) before bedtime. 09/28/2024 ActiveStart: 09-19-2024 End: 54-60-7289wdua 500 mg intravenously every twelve hourslevoFLOXacin 500 mg oral tablet (20 sources)Quinolone AntimicrobialStart: 11-09-2024 End: 02-23-1778idfw 1 tablet by mouth in the morninglevoFLOXacin (LEVAQUIN) 500 mg tablet Take 1 tablet (500 mg total) by mouth in the morning. End 11/24/24. 11/09/2024 Oyryjb22 ml magnesium sulfate 40 mg/ml injection (2 sources)Start: 11-55-7167Xwgnj: 89-42-1718peqdcqoqk 5 mg oral tablet (10 sources)Start: 21-26-8133whvq 1 tablet by mouth once daily at bedtime as neededmelatonin 5 mg oral tablet 5 mg = 1 tab(s), Oral, Once a day (at bedtime), PRN for insomnia, # 60 tab(s), Refills(s) 0 Start Date: 02/17/25 Status: Ordered Quantity: 60.0 Unit: tab(s) Repeat number: 1methenamine hippurate 1000 mg oral tablet (3 sources)Start: 91-42-6485puidkznrfrt hippurate 1 g oral tablet 1 gm = 1 tab(s), Refills(s) 0 Start Date: 02/17/25 Status: Ordered Repeat number: 1Start: 38-41-1418Lzoovohdeie Hippurate 1 gram tablet Active 1 GM PO Twice daily December 29, 2024 12:00am Complies with drug therapymetoprolol tartrate 25 mg oral tablet (20 sources)beta-Adrenergic BlockerStart: 11-19-2024 End: 98-18-6620bfre 1 tablet by mouth once dailyMetoprolol Succinate 100 mg tablet extended release 24 hr Discontinued 100 MG PO Daily November 19, 2024 12:00am December 29, 2024 2:03pmStart: 09-22-2024 End: 97-43-1406Dfoff: 09-21-2024 End: 56-83-4522Vnvka: 09-01-2024 End: 62-81-6867pytm 1 tablet by mouth in the morning, then take 1 tablet by mouth at bedtimemetoprolol tartrate (LOPRESSOR) 25 mg tablet Take 1 tablet (25 mg total) by mouth in the morning and 1 tablet (25 mg total) before bedtime. 09/28/2024 ActiveStart: 09-01-2024 End: 96-70-1910eriw 0.5 tablet by mouth in the morning, then take 0.5 tablet by mouth at bedtimemetoprolol tartrate (LOPRESSOR) 25 mg tablet Take 0.5 tablets (12.5 mg total) by mouth in the morning and 0.5 tablets (12.5 mg total) before bedtime. Do all this for 30 days. 09/01/2024 10/01/2024 Activemirtazapine 15 mg oral tablet (20 sources)Start: 72-66-5325nvrq 1 tablet by mouth once daily at bedtime Mirtazapine 15 mg tablet Active 15 MG PO Daily at bedtime November 19, 2024 12:00am Complies with drugtherapyStart: 98-24-0928Hwfcy: 09-21-2024 End: 98-99-1978Ohddb: 08-18-2024 End: 78-23-2619xjmy 1 tablet by mouth once daily at bedtimeMirtazapine 15 mg tablet Active 15 MG PO Daily at bedtime November 19, 2024 12:00am Complies with drugtherapymultivitamin tablet (20 sources)take 1 tablet by mouth once dailymultivitamin tablet Take 1 tablet by mouth once daily. Activetake 1 tablet by mouth once dailymultivitamin tablet Take 1 tablet by mouth once daily. 0 ActiveComment on above:Take 1 tablet by mouth once daily.Multivitamins and Minerals (2 sources)Start: 46-98-2927ucoi 1 tablet by mouth once dailyMultivitamins and Minerals 1 tab, Oral, Daily, Prophylaxis Start Date: 06/30/16 Status: Ordered Start: 01-88-1988kaak 1 tablet by mouth once dailyMultivitamins and Minerals 1 tab, Oral, Daily Start Date: 06/30/16 Status: Orderednaproxen 500 mg oral tablet (20 sources)Nonsteroidal Anti-inflammatory DrugStart: 30-28-4097nlhp 1 tablet by mouth twice dailyNaprosyn 500 mg Tab = 1 tab(s), Oral, BID, Refills(s) 0 Start Date: 11/17/24 Status: Ordered Repeat number: 1Start: 06-30-2016 End: 17-62-5188Uqsavawv 500 MG OR TABS 06/14/2018 - 06/14/2018 Provider: Conversion Provider End: 08-58-3218uqtesuyg (Naprosyn) 250 MG tablet Take by mouth 08/18/2024 Discontinued (Therapy completed)nitrofurantoin, macrocrystals 25 mg / nitrofurantoin, monohydrate 75 mg oral capsule (5 sources)Nitrofuran Antibacterialtake 1 capsule by mouth in the morning, then take 1 capsule by mouth at bedtimenitrofurantoin, macrocrystal-monohydrate, (MACROBID) 100 mg capsule Take 1 capsule (100 mg total) by mouth in the morning and 1 capsule (100 mg total) before bedtime. Activenystatin 100 unt/mg topical powder (20 sources)Polyene AntifungalStart: 08-23-2024 End: 11-66-5750rmgmqgwe (MYCOSTATIN) powder Apply topically in the morning and before bedtime. 08/23/2024 08/23/2025 ActiveStart: 08-23-2024 End: 85-44-9542vcyatonn (Mycostatin) 180482 UNIT/GM powder Indications: Yeast dermatitis Apply topically 2 (two) times a day 60 g 1 08/23/2024 08/23/2025 ActiveStart: 03-05-2024 End: 75-71-7944jqjnpukd (Mycostatin) [id number] UNIT/GM powder Indications: Candidiasis of skin Apply topically 2 (two) times a day for 15 days Apply to affected areas 60 g 1 03/05/2024 03/20/2024 Active End: 00-32-0774qqtvptfk (Mycostatin) [id number] UNIT/GM powder Apply topically 2 (two) times a day 03/05/2024 Discontinued (Reorder)10 ml ocrelizumab 30 mg/ml injection (20 sources)Start: 09-05-2021 End: 47-92-2000Dzqenul 300 mg/10 mL intravenous solution q6mo, Refills(s) 0 Start Date: 11/17/24 Status: Ordered Repeat number: 1Comment on above:10 mL. ocrelizumab (OCREVUS INTRAVENOUS) (20 sources)ocrelizumab (OCREVUS INTRAVENOUS) Inject 600 mg intravenously once every 6 months. Activeocrelizumab (OCREVUS INTRAVENOUS) Inject 600 mg intravenously once every 6 months. 0 ActiveComment on above:Inject 600 mg intravenously once every 6 months.ondansetron 8 mg oral tablet (20 sources)Serotonin-3 Receptor AntagonistStart: 52-22-0998hssf 1 tablet by mouth every eight hours as needed for nausea and vomitingondansetron (ZOFRAN) 8 mg tablet Take 1 tablet (8 mg total) by mouth every 8 (eight) hours as needed for nausea or vomiting. 30 tablet 2 11/19/2024 Mosqeh81 hr oxybutynin chloride 5 mg extended release oral tablet (12 sources)Cholinergic Muscarinic AntagonistStart: 08-23-2024 End: 07-60-5641oqas 1 tablet by mouth once dailyoxybutynin XL (Ditropan-XL) 5 MG 24 hr tablet Indications: Mixed stress and urge urinary incontinence Take 1 tablet (5 mg) by mouth Daily Do not crush, chew, or split. 30 tablet 1 08/23/2024 09/22/2024 ActiveStart: 03-07-2022 End: 21-69-2744hqdyniioar XL (DITROPAN XL) 5 mg 24 hr tabletpolyethylene glycol 3350 90035 mg powder for oral solution (1 source)Osmotic LaxativeStart: 56-22-5888cslwzbsxf chloride 20 meq extended release oral tablet (20 sources)Start: 31-96-3672wsby 2 tablets by mouth oncePotassium Chloride 20 mEq tablet extended release Active 40 MEQ PO Once January 14, 2025 1:50pm Com plies with drug therapyStart: 12-29-2024 End: 82-79-9670Eygtbrony Chloride 20 mEq tablet extended release Discontinued MEQ PO December 29, 2024 12:00am January 14, 2025 1:51pmStart: 11-19-2024 End: 89-85-2038knoy 1 tablet by mouth once dailyPotassium Chloride 10 mEq tablet extended release Discontinued 10 MEQ PO Daily November 19, 2024 12:00am December 29, 2024 2:04pmStart: 15-81-8942lfeoiqqrv chloride (KLOR-CON SPRINKLE) 10 MEQ CR capsule 11/06/2024 ActivepredniSONE 20 mg oral tablet (2 sources)Start: 06-26-2023 End: 11-05-5465lvco 1 tablet by mouth three times daily, then take 1 tablet by mouth twice daily, then take 1 tablet by mouth once dailypredniSONE (Deltasone) 20 MG tablet Indications: COPD with exacerbation (CMS/HCC) Take 1 tablet (20mg) by mouth 3 (three) times a day for 5 days, THEN 1 tablet (20 mg) 2 (two) times a day for 2 days, THEN 1 tablet (20 mg) Daily for 2 days. 21 tablet 0 06/26/2023 07/05/2023 ActiveStart: 05-08-2017 End: 81-71-5481qvlfmfVCMT 10 MG OR TABS 05/08/2017 - 05/08/2017 Provider: Probiotic (1 source)Probiotic ActivePsyllium (1 source)Metamucil ActiveSaliva Stimulant Comb. No.3 (Biotene Moisturizing Mouth) spray,non-aerosol (1 source)Start: 31-08-5926Nibcmr Stimulant Comb. No.3 (Biotene Moisturizing Mouth) spray,non-aerosol Active 1 APPLIC MUCOUS MEM 4-8 TIMES PER DAY as needed January 14, 2025 12:00am while awake Complies with drug therapysaliva stimulant comb. no.3 (BIOTENE) spray,non-aerosol (5 sources)Start: 23-53-8339eeweac stimulant comb. no.3 (BIOTENE) spray,non- aerosol 1 spray by mucous membrane route as needed (5 times daily). 02/17/2025 Activesennosides, penitentiary 3 mg chewable tablet (2 sources)Start: 09-70-0804ataa 1 mg by mouth once dailysenna (sennosides) 3 mg oral tablet, chewable mg tab(s), Chewed, Daily, Refills(s) 0 Start Date: 09/18 08/11 Status: Ordered Repeat number: 1sertraline 50 mg oral tablet (6 sources)Serotonin Reuptake InhibitorStart: 88-17-8439clay 1 tablet by mouth in the morningsertraline (ZOLOFT) 50 mg tablet Take 1 tablet (50 mg total) by mouth in the morning. 02/17/2025 Activesulfamethoxazole 800 mg / trimethoprim 160 mg oral tablet (20 sources)Dihydrofolate Reductase Inhibitor Antibacterial, Sulfonamide AntimicrobialStart: 11-19-2024 End: 81-18-1957qfxgqxkczbhilsts-trimethoprim (BACTRIM DS) 800-160 mg per tablet Indications: GBM (glioblastoma multiforme) ([facility]) Take 1 tab daily, on Saturday and every week. 60 tablet 1 11/19/2024 11/19/2025 Activetemozolomide 180 mg oral capsule (20 sources)Alkylating DrugStart: 51-68-6681pswb 2 capsules by mouth once daily temozolomide (TEMODAR) 180 MG chemo capsule Take 2 capsules by mouth daily 10 capsule 11 03/05/2025tiveStart: 11-13-2024 End: 28-33-1718ulmi 1 capsule by mouth once dailytemozolomide (TEMODAR) 180 MG chemo capsule Indications: GBM (glioblastoma multiforme) (CMS-HCC) Take 1 capsule by mouth daily 30 capsule 12/31/2024 ActivetraZODone hydrochloride 50 mg oral tablet (20 sources)Serotonin Reuptake InhibitorStart: 08-77-4613djlSXGVUW 50 mg Tab 25 mg = 0.5 tab(s), Oral, Once a day (at bedtime), # 15 tab(s), Refills(s) 0 Start Date: 10/09/24 Status: Ordered Quantity: 15.0 Unit: tab(s) Repeat number: 1Start: 17-22-6268ohmODEdkm (DESYREL) 50 mg tablet Take 0.5 tablets (25 mg total) by mouth. 02/05/2024 ActiveStart: 10-68-4812jytt 1 tablet by mouth once daily at bedtime as needed for sleeptraZODONE 50 mg Tab 50 mg = 1 tab(s), Oral, Once a day (at bedtime), PRN Sleep, Refills(s) 0 Start Date: 02/05/24 Status: Ordered Start: 01-05-2024 End: 83-87-4811lftt 2 tablets by mouth at bedtimetraZODone (Desyrel) 50 MG tablet Take 100 mg by mouth at bedtime 01/05/2024 05/18/2024 Discontinued (Therapy completed)Start: 06-14-2018 End: 21-27-0270HXEICRENM 50 mg MISC 06/14/2018 - 06/14/2018 Provider:Start: 05-30-2017 End: 18-82-8662LHTEUPHDP 50 mg MISC 05/30/2017 - 05/30/2017 Provider:vitamin B12 (12 sources)Vitamin K71Ishis: 54-80-1717ktfu 2500 ug under the tongue once daily Vitamin B12 2,500 mcg, SubLingual, Daily, Refills(s) 0, Prophylaxis Start Date: 02/05/24 Status: Orderedtake 1 tablet by mouth once dailycyanocobalamin (VITAMIN B-12) 1,000 mcg tab Take 1,000 mcg by mouth once daily. ActiveComment on above: Take 1,000 mcg by mouth once daily.Vitamin D (2 sources)Start: 97-02-1024Csjxsxy D 1,200 International_Unit, Oral, Daily, Prophylaxis Start Date: 06/30/16 Status: OrderedStart: 83-40-9977Zbuaohf D 1,200 International_Unit, Oral, Daily Start Date: 06/30/16 Status: Ordered (8 sources)Start: 17-99-7808Dfeqn: 09-28-2024 End: 24-86-0748Nypmx: 52-12-9232Ivnpb: 72-82-0615Zgeus: 09-28-2024 End: 04-27-4315Xcwce: 09-24-2024 End: 60-55-7405Tsefb: 09-24-2024 End: 44-81-4269Qdnjw: 09-24-2024 End: 09-24-2024 (8 sources)Start: 09-26-2024 End: 09-29-2024[Order 1 Start] Name: dexAMETHasone (DECADRON) tablet 4 mg Signed Summary: 4 mg, oral, 3 times daily, First dose on Sat09/26/24 at 1500, For 3 days, Food-Drug Interaction Education Required May alter blood glucose or insulin requirements Take/give with food Look-alike/sound-alike medication - ve rify indication for use. [Order 1 End] [Order 2 Start] Name: dexAMETHasone (DECADRON) tablet 3 mg Signed Summary: 3 mg, oral, 3 times daily, First dose on Sat09/29/24 at 1400, For 3 days, Food-DrugInteraction Education Required May alter blood glucose or insulin requirements Take/give with food Look-alike/sound-alike medication - verify indication for use. [Order 2 End] [Order 3 Start] Name:dexAMETHasone (DECADRON) tablet 3 mg Signed Summary: 3 mg, oral, 2 times daily, First dose on Sat10/02/24 at 1400, For 3 days, Food-Drug Interaction Education Required May alter blood glucose or insulin requirements Take/give with food Look-alike/sound-alike medication - verify indication for us e. [Order 3 End] [Order 4 Start] Name: dexAMETHasone (DECADRON) tablet 2 mg Signed Summary: 2 mg, oral, 2 times daily, First dose on Sat10/05/24 at 0900, Food-Drug Interaction Education Required May alter blood glucose or insulin requirements Take/give with food Look-alike/sound-alike medication - verify indication for use. [Order 4 End]Start: 09-22-2024 End: 87-66-4798Nadnr: 18-40-6628armo 650 mg by mouth every six hours as needed for pain and headache and fever[Order 1 Start] Name: acetaminophen (TYLENOL) tablet 650 [...] Starting on 09/19/24 at 0413 [Order 2 End]Start: 10-89-2286Qojzc: 09-19-2024[Order 1 Start] Name: sodium phosphate 20 mmol in sodium chloride 0.9 % 250 mL IVPB Signed Summary:20 mmol, intravenous, at 42.8 mL/hr, Administer over 6 Hours, As needed, for phosphorus level 2.3 mg/dL or less, Starting on 09/19/24 at 0258, Administer over 6 hours via dedicated line (peripheralline). If administered, recheck phosphorus level 4 hours after infusion complete. [Order 1 End] [Order 2 Start] Name: sodium phosphate 20 mmol in sodium chloride 0.9 % 100 mL IVPB Signed Summary: 20 mmol, intravenous, at 26.7 mL/hr, Administer over 4 Hours, As needed, for phosphorus level 2.3 mg/dLor less.Do not administer if potassium is more than 4.5, Starting on 09/19/24 at 0258, Administerover 4 hours via dedicated line (central line). [...] a full glass of water. [Order 3 End]Start: 28-36-1140Gsjri: 07-35-9349Vdhzj: 09-19-2024[Order 1 Start] Name: potassium chloride (K-TAB,KLOR-CON) CR tablet 20-60 mEq Signed Summary: 20-60mEq, oral, As needed, Potassium Supplementation, Starting on [...] Do not crush or chew. [Order 1 E nd] [Order 2 Start] Name: potassium chloride (KAYCIEL) 20 mEq/15 mL solution 20- 60 mEq Signed Summary: 20-60 mEq, oral, As [...] or less =60 mEq. Must dilute before use- Mix in 3-8 ounces of water or juice before administration When administering in feeding tube, flush before and after per policy and monitor potassium levels [Order 2 End] [Order 3 Start] Name: potas sium chloride IVPB 10 mEq/100 mL in water [...] of 1 hour. [Order 3 End] (1 source)Start: 09-23-2024 Completed/Discontinued Medications MedicationDrug Class(es)DatesSig (Normalized)Sig (Original)albuterol-budesonide 90-80 mcg/actuation HFA aerosol inhaler (14 sources) End: 34-32-5392svkxlccyr-budesonide 90-80 mcg/actuation HFA aerosol inhaler Albuterol 11/19/2024 Discontinuedalbuterol-budesonide 90-80 mcg/actuation HFA aerosol inhaler Albuterol ActiveAmino Acids-Protein Hydrolys (Pro-Stat Sugar Free) 15-100 gram-kcal/30 mL liquid (4 sources)Start: 11-19-2024 End: 55-26-6394Umlnn Acids-Protein Hydrolys (Pro-Stat Sugar Free) 15-100 gram- kcal/30 mL liquid Discontinued 1 EACH PO Twice daily November 19, 2024 12:00am December 29, 2024 1:59pmStart: 18-36-5112Labek: 20-86-1493Pezoo Acids-Protein Hydrolys (Pro-Stat Sugar Free) 15-100 gram-kcal/30 mL liquid Active 1 EACH PO Tw ice daily November 19, 2024 12:00am Complies with drug therapyamitriptyline hydrochloride 25 mg oral tablet (20 sources)Tricyclic AntidepressantStart: 09-05-2021 End: 51-12-1632uccp 1 tablet by mouth at bedtimeAmitriptyline 25 mg tablet Discontinued 25 MG PO Bedtime September 05, 2021 12:00am November 19, 2024 3:15pm Start: 06-46-0969kfkghdbqnpdvh (ELAVIL) 50 mg tablet Take 25-50 mg qhs 07/15/2020 Activetake 1 tablet by mouth every twelve hoursAmitriptyline HCl 10 MG 1 tablet Orally twice a day ActiveAmitriptyline HCl ActiveComment on above: Take 25-50 mg qhsaspirin 81 mg delayed release oral tablet (9 sources)Platelet Aggregation Inhibitor, Nonsteroidal Anti-inflammatory Drug Start: 07-15-2020 End: 42-63-2282faam 1 tablet by mouth once dailyaspirin, enteric coated (ADULT LOW DOSE ASPIRIN) 81 mg EC tablet Take 1 tablet by mouth once daily.30 tablet 5 07/15/2020 03/16/2022 DiscontinuedComment on above:Take 1 tablet by mouth once daily.atorvastatin 40 mg oral tablet (20 sources)HMG-CoA Reductase InhibitorStart: 11-01-2020 End: 87-83-2531jhqn 1 tablet by mouth at bedtimeAtorvastatin 40 mg tablet Discontinued 40 MG PO Bedtime September 05, 2021 12:00am November 19, 2024 3:15pm Atorvastatin Calcium ActiveComment on above:Take 1 tablet by mouth once daily. Take 1 tablet by mouth once dailybetamethasone 3 mg/ml / betamethasone acetate 3 mg/ml injectable suspension (4 sources)CorticosteroidStart: 04-27-2024 End: 33-93-4492nvtjeztlcshsx acetate-betamethasone sodium phosphate (Celestone) injection 12 mgStart: 04-27-2024 End: 21-80-700460 mg, Intra-articular, Once PRN Procedure, Starting on Sat04/27/24 at 0943, For 1 dose50 ml clevidipine 0.5 mg/ml injection (1 source)Dihydropyridine Calcium Channel BlockerStart: 09-23-2024 End: 10-39-5144UZPtvrmfft 30 mg delayed release oral capsule (18 sources)Serotonin and Norepinephrine Reuptake InhibitorStart: 09-13-2021 End: 64-82-0194coqn 1 capsule by mouth once dailyDULoxetine (CYMBALTA) 30 mg capsule Take 30 mg by mouth once daily. 0 09/13/2021 07/10/2023 Discontinued (Other)DULoxetine HCl ActiveComment on above:Take 30 mg by mouth once daily.2 ml famotidine 10 mg/ml injection (1 source)Histamine-2 Receptor AntagonistStart: 09-19-2024 End: 68-08-0164ZFDmqgnhcz 20 mg oral capsule (18 sources)Serotonin Reuptake InhibitorStart: 09-05-2021 End: 33-57-0855utjf 1 capsule by mouth once dailyFluoxetine 20 mg capsule Discontinued 20 MG PO Daily September 05, 2021 12:00am November 19, 2024 3:15pm Comment on above:Daily1 ml heparin sodium, porcine 5000 unt/ml injection (1 source)Unfractionated Heparin, Anti-coagulantStart: 09-20-2024 End: 60-33-0271eoiluwdxbs 10 mg oral tablet (20 sources)Angiotensin Converting Enzyme InhibitorStart: 11-01-2020 End: 77-63-3634udkl 1 tablet by mouth once dailyLisinopril 10 mg tablet Discontinued 10 MG PO Daily September 05, 2021 12:00am November 19, 2024 3:15pm Lisinopril ActiveComment on above:Take 1 tablet by mouth once daily.Take 1 tablet by mouth once dailymeloxicam 15 mg oral tablet (9 sources)Nonsteroidal Anti-inflammatory DrugStart: 05-01-2023 End: 66-09-0335yndb 1 tablet by mouth once daily in the morningmeloxicam (MOBIC) 15 mg tablet Take 15 mg by mouth every morning. 0 05/01/2023 11/26/2023 DiscontinuedComment on above:Take 15 mg by mouth every morning.50 ml sodium bicarbonate 84 mg/ml prefilled syringe (1 source)Start: 09-19-2024 End: 53-53-69013470 ml sodium chloride 9 mg/ml injection (2 sources)Start: 09-23-2024 End: 13-64-5559Hftaf: 09-19-2024 End: 20-62-0773upwxdztbilgad 14 mg oral tablet (1 source)Pyrimidine Synthesis InhibitorStart: 06-14-2018 End: 69-34-2786Greymld 14 MG OR TABS 06/14/2018 - 06/14/2018 Provider: Conversion Providerzinc oxide 0.2 mg/mg topical ointment (4 sources)Start: 11-19-2024 End: 28-61-2689Jtnf Oxide (Endit (Zinc Oxide)) 20 % ointment Discontinued 1 APPLIC TOPICAL Four times daily as needed November 19, 2024 12:00am December 29, 2024 2:04pm (4 sources)Start: 09-22-2024 End: 42-48-6641Ublgt: 09-21-2024 End: 11-24-8841Aarrn: 09-20-2024 End: 94-76-9956Aqeav: 09-19-2024 End: 09-19-2024 (1 source)Start: 09-20-2024 End: 09-20-2024 Problems Active Problems Problem ClassificationProblemDateDocumented DateEpisodic/ChronicAcute and unspecified renal failure (13 sources)Acute renal failure syndrome; Translations: [Acute kidney failure, unspecified]Onset: [id number] cerebrovascular disease (20 sources)Cerebrovascular accident; Translations: [Cerebral infarction, unspecified]Onset: 040900-09-4455LpjckxkPktalgnoxt disorders (20 sources)Adjustment disorder with mixed anxiety and depressed mood; Translations: [Adjustment disorder with mixed anxiety and depressed mood]Onset: 864502-79-5433EqjwcykZfmr and rectal conditions (5 sources)Rectal pain; Translations: [Other specified diseases of anus and rectum]Onset: 08-14-2021 Resolved: 54-53-4872HcgghzzcXnkydbo disorders (20 sources)Mixed anxiety and depressive disorder; Translations: [Anxiety disorder, unspecified]Onset: 04-30-2023 Resolved: 068291-02-0945PepttfaFedwmi of brain and nervous system (20 sources)Glioblastoma multiforme ; Translations: [Malignant neoplasm of brain, unspecified]Onset: 372678-25-4086ZkiszwlOtbeqrw dysrhythmias (2 sources)Cardiac arrhythmia, unspecified; Translations: [Cardiac arrhythmia, unspecified]Onset: 27-97-8894LyhbqhaHfctixu obstructive pulmonary disease and bronchiectasis (20 sources)Chronic bronchitis; Translations: [Unspecified chronic bronchitis] Onset: 04-30-2023 Resolved: 56-61-833683986793-71-3533RcnhrikSyzuwls ulcer of skin (2 sources)Pressure ulcer of left buttock, stage 2; Translations: [Pressure ulcer, buttock]Onset: 375783-64-8749TgbjuqrZjpgqslpkem and hemorrhagic disorders (20 sources)Thrombocytopenic disorder; Translations: [Thrombocytopenia, unspecified]Onset: 235468-01-5523MzfqnshNswvrtmhd of lipid metabolism (20 sources)Hyperlipidemia, unspecified; Translations: [Hyperlipoproteinemia] Onset: 679399-80-4584LjbscxaWdvzpzdsdsshae and diverticulitis (20 sources)Diverticular disease of colon; Translations: [Diverticulosis of intestine, part unspecified, without perforation or abscess without bleeding] Onset: 12-13-2021 Resolved: 60-30-6392JzxladgE Codes: Fall (1 source)FallOnset: 41-87-0837Umcggmbrj hypertension (20 sources)Essential (primary) hypertension; Translations: [Essential hypertension]Onset: 585928-43-9094TbinomvZixawtvwweekxskf hemorrhage (5 sources)Rectal hemorrhage; Translations: [Hemorrhage of anus and rectum] Onset: 08-14-2021 Resolved: 72-65-7377IphcylkvTdglwhbxyfwpp symptoms and ill-defined conditions (20 sources)Incontinence; Translations: [Unspecified urinary incontinence]Onset: 776918-18-2719HwcvbsqDgumtgcsgofxe symptoms and ill-defined conditions (20 sources)Polyuria; Translations: [Polyuria]Onset: 496452-02-4886 EpisodicHemorrhoids (3 sources)Hemorrhoids; Translations: [Unspecified hemorrhoids]Onset: 12-13-2021 Resolved: 74-19-4756ZwhadzavOdmmvvaomimyc mental health disorders (20 sources)Primary insomnia; Translations: [Primary insomnia]Onset: 04-30-2023 67-47-2958UotmsdgHpkv disorders (20 sources)Depressive disorder; Translations: [Depression]Onset: 03-19-2015 Resolved: 666435-42-7043EhlanjzIxyijmbz sclerosis (20 sources)Relapsing remitting multiple sclerosis; Translations: [Multiple sclerosis]Onset: 61-47-5914XcgtcfrWwybpcgaa of unspecified nature or uncertain behavior (6 sources)Neoplasm of brain; Translations: [Neoplasm of unspecified behavior of brain]Onset: 801182-98-4059ZqlaqrdDaduwsfhoaogt gastroenteritis (1 source)Noninfective gastroenteritis and colitis, unspecified; Translations: [NONINFECTIVE GE AND COLITIS UNS]Onset: 83-84-7411YvbxmhnkWssbzapqyfn deficiencies (20 sources)Vitamin D deficiency; Translations: [Vitamin D deficiency, unspecified]Onset: 940936-68-8301VxbsuxjPxwsiyiyqoxilu (20 sources)Osteoarthritis of knee; Translations: [Osteoarthritis of knee, unspecified]Onset: 11-08-2016 Resolved: 377898-92-2340NmllamzDakem acquired deformities (20 sources)Contracture of joint of right ankle; Translations: [Contracture, right ankle]Onset: 494523-91-9091DmwpntxBtxgh and unspecified benign neoplasm (2 sources)Tubular adenoma ; Translations: [Benign neoplasm, unspecified site] EpisodicOther and unspecified benign neoplasm (1 source)Benign neoplasm of sigmoid colon; Translations: [BENIGN NEOPLASM OF SIGMOID COLON]Onset: 46-54-1669TljjsxwtTcauo and unspecified benign neoplasm (2 sources)History of polyp of colon; Translations: [History of colonic polyps] 83-73-6268GxicemdtDpytz circulatory disease (1 source)Personal history of transient ischemic attack (TIA), and cerebral infarction without residual deficits; Translations: [PERS HX TIA AND CI NO RESID DEFICIT]Onset: 91-25-3967JyxuavpqJtcme congenital anomalies (20 sources)Cutis verticis gyrata; Translations: [Other specified congenital malformations of skin]Onset: 161465-12-1563FecdwdnJgzvi connective tissue disease (1 source)Other symptoms and signs involving the musculoskeletal system; Translations: [Other musculoskeletalsymptoms referable to limbs]09-06-2023 EpisodicOther connective tissue disease (2 sources)Rotator cuff impingement syndrome; Translations: [Impingement syndrome of left shoulder]86-90-3827LvikwlqoFqdrp connective tissue disease (4 sources)Adhesive capsulitis of left shoulder; Translations: [Adhesive capsulitis of left shoulder]09-81-2038IlkwkqwjKocsh connective tissue disease (1 source)Rhabdomyolysis; Translations: [Rhabdomyolysis]Onset: 08-28-2024 EpisodicOther gastrointestinal disorders (4 sources)Constipation; Translations: [Constipation, unspecified]EpisodicOther gastrointestinal disorders (4 sources)Change in stool caliber; Translations: [Change in bowel habit] EpisodicOther gastrointestinal disorders (2 sources)Change in bowel habitOnset: 08-14-2021 Resolved: 12-88-8402AkxjewezScjlb gastrointestinal disorders (3 sources)Altered bowel function; Translations: [Other specified symptoms and signs involving the digestive system and abdomen]EpisodicOther nervous system disorders (20 sources)Carpal tunnel syndrome; Translations: [Carpal tunnel syndrome, unspecified upper limb]Onset: 025852-06-3879VkpyixnXvupn nervous system disorders (20 sources)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; Translations: [Lesion of ulnar nerve, bilateral upper limbs]Onset: 121498-51-9979WlwjibxFbhkm nervous system disorders (20 sources)Cognitive deficit in communication skills; Translations: [Cognitive communication deficit]Onset: 253613-91-8777VxxqtudHfath nervous system disorders (20 sources)Difficulty walking; Translations: [Difficulty in walking, not elsewhere classified]Onset: 364688-47-6678CcflwhrQrzqc nervous system disorders (1 source)Mass lesion of brain; Translations: [Other specified disorders of brain]90-75-9476LnjucdwAniln nervous system disorders (1 source)Other specified disorders of brain; Translations: [Other specified disorders of brain]Onset: 08-07-6056IrjzmieHfafb non-traumatic joint disorders (1 source)Disorder of joint of shoulder region; Translations: [Other specified joint disorders, left shoulder]Onset: 14-39-6641GcghyvvxKeunj non-traumatic joint disorders (2 sources)Pain in left shoulder; Translations: [Pain in joint, shoulder region] 13-19-1155ZciyzdqyRifhq nutritional; endocrine; and metabolic disorders (20 sources)Severe obesity; Translations: [Morbid (severe) obesity due to excess calories]Onset: 403475-09-1932JgyjrvmAkgvc nutritional; endocrine; and metabolic disorders (20 sources)Metabolic syndrome X; Translations: [Metabolic syndrome]Onset: 282291-88-2864XrevxvuTlqlk nutritional; endocrine; and metabolic disorders (14 sources)Body mass index 40+ - severely obese; Translations: [Body mass index (BMI) 45.0-49.9, adult]Onset: 282430-85-1511PzmizlpXfwfp nutritional; endocrine; and metabolic disorders (16 sources)Obesity caused by energy imbalance; Translations: [Morbid (severe) obesity due to excess calories]Onset: 520743-43-1303HvmjehyOegmingl codes; unclassified (20 sources)Obstructive sleep apnea syndrome; Translations: [Obstructive sleep apnea (adult) (pediatric)]Onset: 884768-81-3682LautuhtPjsyrrtm codes; unclassified (20 sources)Menopause present; Translations: [Asymptomatic menopausal state] Onset: 091115-46-3789EezgtvmpInlzztjo codes; unclassified (13 sources)History of arthroscopic procedure on shoulder; Translations: [Other specified postprocedural states]91-14-3408SqlrkerdVcqxmegt codes; unclassified (2 sources)History of craniotomy; Translations: [Other specified postprocedural states]88-90-8974IegegjxzWbsllxsr codes; unclassified (2 sources)Other specified postprocedural states; Translations: [Other specified postprocedural states]Onset: 27-25-0382QjpqmpdqArlgeiwx codes; unclassified (1 source)Pain, unspecified; Translations: [Pain, unspecified]Onset: 12-03-2024 EpisodicSubstance-related disorders (5 sources)Nicotine dependence, unspecified, uncomplicated; Translations: [Smoker]Onset: 344187-92-2601HbzvrnwLjrrkih on above:Added secondary to documentation in Social History.Transient cerebral ischemia (3 sources)Transient cerebral ltgqiavi23-35-4377QjcawhoWcdtgzc on above:patient states she had a moment where she couldn't get words out and did not go to hospital but realized after that is what happened -- august 2020Unclassified (5 sources)Multiple sclerosis; Translations: [Multiple sclerosis]Onset: 690257-31-4104EkmwknaFarpllnqgrna (1 source)Weakness - GeneralizedOnset: 60-24-5372Jnwvwzpauxbu (1 source)EMSOnset: 93-08-0498Vwbvsfnzianf (1 source)Evaluation of Abnormal Diagnostic TestOnset: 13-26-5197Kseftsrfcmfw (1 source)52 femaleOnset: 87-71-3362Vwijlfxoiavx (1 source)New PatientOnset: 54-97-3823Kqtfgartybgu (1 source)Wound CheckOnset: 68-09-9833Skwppip tract infections (4 sources)Urinary tract infectious disease; Translations: [Urinary tract infection, site not specified]Onset: 68-47-7233Rvwhnqrr Past or Other Problems Problem ClassificationProblemDateDocumented DateEpisodic/ChronicAcquired foot deformities (20 sources)Acquired hallux valgus; Translations: [Hallux valgus (acquired), unspecified foot]Onset: 04-26-2023 Resolved: 428443-19-6571GlyyrowRzykzmeknyvrtm/social admission (20 sources)Finding of activity of daily living; Translations: [Limitation of activities due to disability]Onset: 933258-45-0606FysxswncAvrlsugp reactions (2 sources)Irritant contact dermatitis; Translations: [Other specified dermatitis]Onset: 640279-19-5793KczlklnmShjjakssp and vision defects (6 sources)Diplopia; Translations: [Diplopia]Onset: 615539-61-4786Qdxyozox Immunizations and screening for infectious disease (20 sources)Encounter for immunization; Translations: [Suspected clinical finding]Onset: 566472-92-1708ZqqawrnsKpeeg disorders and dislocations; trauma-related (20 sources)Traumatic rupture of lumbar intervertebral disc; Translations: [Traumatic rupture of lumbar intervertebral disc, initial encounter]Onset: 112911-64-0611CvupxowvAksgnbx and fatigue (20 sources)Weakness; Translations: [Asthenia]Onset: EpisodicMood disorders (20 sources)Mood disordersOnset: 05-01-2023 Resolved: 278749-47-9158Xsibdtj (20 sources)Candidiasis of skin; Translations: [Candidiasis of skin and nail] Onset: 03-05-2024 Resolved: 293361-51-1236NkksiostIhwsauuokmj deficiencies (20 sources)Nutritional deficiency state; Translations: [Nutritional deficiency, unspecified]Onset: 834969-99-0910XxctyqipSjvmx and unspecified benign neoplasm (1 source)Benign neoplasm, unspecified siteOnset: 12-13-2021 Resolved: 39-82-3197JpgayszjLqglj connective tissue disease (20 sources)Non-traumatic rhabdomyolysis; Translations: [Rhabdomyolysis]Onset: 694921-98-1341IapmkfeiBtizl connective tissue disease (20 sources)Muscle weakness; Translations: [Muscle weakness (generalized)]Onset: 208898-54-8402HpsznasxFivni connective tissue disease (20 sources)Rhabdomyolysis; Translations: [Rhabdomyolysis]Onset: 09-01-2024 43-55-5556FymybuswDoaxp female genital disorders (1 source)Other specified noninflammatory disorders of vagina; Translations: [OTH SPEC NONINFLAMMATORY D/O VAGINA]Onset: 27-20-5123XqsumkdsWotkl gastrointestinal disorders (1 source)Constipation, unspecifiedOnset: 08-14-2021 Resolved: 73-25-0458NtunqksnZgnlh gastrointestinal disorders (1 source)Other specified symptoms and signs involving the digestive system and abdomenOnset: 12-13-2021 Resolved: 99-96-0766KedvtwcyKihno gastrointestinal disorders (20 sources)Oropharyngeal dysphagia; Translations: [Dysphagia, oropharyngeal phase]Onset: 218866-54-3311UvhjocfiPsfpv lower respiratory disease (3 sources)Cough; Translations: [COUGH]Onset: 05-66-1411LucfumfoYfqur lower respiratory disease (20 sources)Cough; Translations: [Acute cough]Onset: 04-15-2024 Resolved: 610936-75-6321FepmmgynGxnxn non-traumatic joint disorders (20 sources)Shoulder pain; Translations: [Pain in unspecified shoulder]Onset: 582119-68-5131FdjwnmdnEfnev nutritional; endocrine; and metabolic disorders (20 sources)Abnormal weight gain; Translations: [Abnormal weight gain]Onset: 457994-56-7938FodwaxdjMtvhc nutritional; endocrine; and metabolic disorders (20 sources)Excessive thirst; Translations: [Polydipsia]Onset: 01-06-2024 42-27-1548YsssdldmTkyww screening for suspected conditions (not mental disorders or infectious disease) (20 sources)Patient encounter status; Translations: [Encounter for screening mammogram for malignant neoplasm of breast]Onset: 98-25-5491CcjajnsuAsyav skin disorders (20 sources)Night sweats; Translations: [Generalized hyperhidrosis]Onset: 07-30-2023 Resolved: 746844-43-5912HsoyhzzpKudbl upper respiratory infections (20 sources)Acute sinusitis; Translations: [Other acute sinusitis]Onset: 04-14-2024 Resolved: 980798-51-1919VmdqberkVrjakh media and related conditions (20 sources)Acute suppurative otitis media without spontaneous rupture of ear drum; Translations: [Acute suppurative otitis media without spontaneous rupture of ear drum, left ear]Onset: 06-26-2023 Resolved: 565482-48-4253SldmyuubHloxamjx codes; unclassified (20 sources)Flushing; Translations: [Flushing]Onset: EpisodicResidual codes; unclassified (20 sources)Altered mental status; Translations: [Altered mental status, unspecified]Onset: 506008-28-4626OftohpfzPxzbishc codes; unclassified (1 source)Altered mental status, unspecified; Translations: [Altered mental status, unspecified]Onset: 05-47-8650JxbgusksAymt and subcutaneous tissue infections (20 sources)Abscess; Translations: [Cutaneous abscess, unspecified]Onset: 01-06-2024 Resolved: 359878-38-3466NvubieyyCahbishvqli; intervertebral disc disorders; other back problems (20 sources)Cervical radiculopathy; Translations: [Radiculopathy, cervical region]Onset: 684342-84-1549Ygoyigcp Results Test NameValueInterpretationReference RangeFacilityMR BRAIN W WO CONTon 85-03-5753JE BRAIN W WO CONTMR BRAIN W WO CONT EXAM: MR BRAIN [...] right temporal lobe. Overall findings are compatible withprogression of glioblastoma. Surrounding FLAIR and T2 hyperintensity has also progressed in the interval, compatible with vasogenic edema and possibly infiltrative nonenhancing glioma. There remains localized mild mass effect seen as swelling of the involved gyri and effacement of the overlying sulci. There is no shift of the midline structures and the basal cisterns are patent. There is no evidence for ventricular outflow obstruction. There are white matter changes of chronic ischemic small vessel disease with multifocal old small cortical infarcts. There is no restricted diffusion. The midline structures and craniocervical junction are [...] and possibly a component of infiltrative nonenhancing glioma.There remains mild local mass effect seen as swelling of the involved gyri and effacement of the overlying sulci. Finalized by Sebastian Grayson MD on 02/24/2025 6:08 AMNormalWashington County Tuberculosis HospitalMed[facility] Ambulatory Visit Summaryon 13-61-0050Timfukrenq Visit SummaryAmbulatory Visit Summary ANUPAMA VASQUEZ :1970 Visit Date:02/17/2025 Ambulatory Visit Instructions Your Diagnosis UTI (urinary tract infection) Your Care Team Attending Physician - Juli FIGUEROA, Silvia Primary Care Physician - DIXIE BENITEZ, SARY Lantigua This Is Your Medications List acetaminophen (Tylenol) acetaminophen-oxycodone (Percocet 5 mg-325 mg oral tablet) busPIRone (busPIRone 7.5 mg oral tablet) cholecalciferol (cholecalciferol 50 mcg (2000 intl units) oral tablet, chewable) dexamethasone (dexamethasone 1.5 mg oral tablet) docusate (Colace 100 mg Cap) doxycycline (doxycycline monohydrate 100 mg oral capsule) escitalopram (escitalopram 10 mg Tab) fluconazole (fluconazole 150 mg Tab) glucagon (glucagon Injection 1 mg) insulin lispro (insulin lispro 100 units/mL injectable solution) levetiracetam (levetiracetam 500 mg Tab) melatonin (melatonin 5 mg oral tablet) methenamine (methenamine hippurate 1 g oral tablet) metoprolol (Metoprolol tartrate 25 mg Tab) mirtazapine (mirtazapine 15 mg Tab) naproxen (Naprosyn 500 mg Tab) ocrelizumab (Ocrevus 300 mg/10 mL intravenous solution) polycarbophil (Fiber Tabs) saliva substitutes (Biotene Moisturizing [place]outh [place] oral) senna (senna (sennosides) 3 mg oral tablet, chewable) sertraline (sertraline 50 mg Tab) trazodone (traZODONE 50 mg Tab) Procedures Performed Arthroscopy of shoulder (02/10/2024), Carpal tunnel, Ectopic , Tubal ligation. Discharge Vitals Temperature (Tympanic) 36.7 ???C Heart Rate (Peripheral) 68 Respiratory Rate 16 Blood Pressure 116/62 Height 169 cm Height 67 in Medications What How Much When Why Instructions [...] By Mouth 3 times a day Unchanged cholecalciferol (cholecalciferol 50 mcg (2000 intl units) oral tablet, chewable) By MouthEvery day Unchanged dexamethasone (dexamethasone 1.5 mg oral tablet) By Mouth 2 times a day Unchanged docusate (Colace 100 mg Cap) 1 Capsules By Mouth 2 times a day as needed for for constipation Unchanged doxycycline (doxycycline monohydrate 100 mg oral capsule) 1 Capsules Unchanged escitalopram (escitalopram 10 mg Tab) 1 Tablets By Mouth Every day Unchanged fluconazole (fluconazole 150 mg Tab) By Mouth Once Unchanged glucagon (glucagon Injection 1 mg) Once Unchanged insulin lispro (insulin lispro 100 units/ mL injectable solution) 5 Units Subcutaneous Before meals Unchanged levetiracetam (levetiracetam 500 mg Tab) 1 Tablets By Mouth 2 times a day Unchanged melatonin (melatonin 5 mg oral tablet) 1 Tablets By Mouth Once a day (at bedtime) as needed for for insomnia Unchanged methenamine (methenamine hippurate 1 g oral tablet) 1 Tablets Unchanged metoprolol (Metoprolol tartrate 25 mg Tab) 1 Tablets By Mouth 2 times a day Unchanged mirtazapine (mirtazapine 15 mg Tab) 1 Tablets Unchanged naproxen (Naprosyn 500 mg Tab) 1 Tablets By Mouth 2 times a day Unchanged ocrelizumab (Ocrevus 300 mg/ 10 mL intravenous solution) Every 6 months Unchanged polycarbophil (Fiber Tabs) By Mouth 4 times a day Unchanged saliva substitutes (Biotene Moisturizing [place]outh [place] oral) 6 times a day Unchanged senna (senna (sennosides) 3 mg oral tablet, chewable) Chewed Every day Unchanged sertraline (sertraline 50 mg Tab) By Mouth Every day Unchanged trazodone (traZODONE 50 mg Tab) 0.5 Tablets By Mouth Once a day (at bedtime) Allergies No Known Allergies Problems Ongoing - Any problem that you are currently receiving treatment for. Acute kidney injury Altered mental status Bipolar I disorder Depressive disorder Essential hypertension Generalized anxiety disorder Glioblastoma multiforme Hyperlipoproteinemia Menopause Mini stroke Morbid obesity with [...] signed up for this yet, please contact [employer] at [phone] to get signed up today. Language Information Language assistance services are available as needed. [facility]/Clinic Noteon 84-42-8821Dnwwcob Office/Clinic NoteUrology Office/Clinic Note Chief Complaint Pt is here for follow up HPI Staff Pt is a 54 year old female here for a 2 month follow up (pt has alexis) Previous DX: urinary retention, UTI Pt complains of burning denies pain denies visible blood denies flank pain History of Present Illness I have reviewed and verified the staff HPI to be accurate for this encounter. Review of Systems PHQ Score Initial Depression Screen Score: 0 SCORE no fever, chills, malaise, myalgia. no abdominal pain, nausea, vomiting. Physical Exam Vitals & Measurements T: 36.7 ???C(Tympanic) HR: 68(Peripheral) RR: 16 BP: 116/62 HT: 67 in HT: 169 cm General: Well developed, well nourished, in no acute distress. Assessment/Plan 54 yo female pt w/ hx of glioblastoma and MS here for 3 month f/u ЕЛЕНА pt 1. Urinary retention (R33.9: Retention of urine, unspecified) 10/09/24: Hx MS. Transferred from [facility] to [facility] on 09/18/24 d/t BRANDON, brain mass w shift and AMS. 1.5Lretention upon admission w BRANDON (Bowl Attendant 15.68) bilat hydro on US, improved to 0.74 on 09/28/24. ECF attempted void trial on 10/02/24 but pt unable to void so Alexis replaced. She's currently working w PT toincrease mobility. Does not recall ever having urinary retention before this episode. Denies issues voiding prior to admission. S/p craniotomy and tumor resection of 8cm tumor [...] BMs can consider another void trial at thattime. Admitted at [facility] 10/17-10/22 w Sepsis, NSTEMI, Heart Failure. Urine Cx showed Proteus. Alexis was dc'd on day of discharge (unclear why). Treated for another UTI 11/10 (Levaquin). Per heme/onc note (Guillermo Mendoza) pt starting chemo/radiation with palliative goals. Started pt on daily Bactrim #60. Seeing nephrology d/t acute on CKD. 11/07/24 Bowl Attendant 3.05 Last visit, PVR 927ml. Pt does not have sensation of incomplete emptying. Comfortable. Voiding, mostly in brief. Pt advised alexis needed to be replaced or learn CIC. Pt prefers indwelling Alexis. Order written for ECF to replace upon return to facility today and maintain w Q4wk changes. Today, pt presents with alexis. Shares alexis is being changed q4wks. Shares she has been having burning with catheter the past few weeks. Otherwise, no issues with cath. Denies gross hematuria. We discussed possibility of UTI given burning. Unable to give sample today d/t alexis. She is unsure when catheter was last changed. Written orders provided to obtain urine sample from clean catheter and send urine for culture. Will treat with antibiotics if infection present. She is agreeable to plan. Allquestions answered. We also discussed etiologies for her retention and next steps for further evaluation including cystoscopy. Offered TOV at today's visit, but pt declines and wishes to maintain alexis catheter at this time given immobility and for comfort purposes. She also declines cysto at this time. Offered 3 month versus 6 month f/u. She prefers 3 months. Will reevaluate sx at this time. -Written orders to replace cath if > 1 week old. Obtain urine sample from clean cath & send urine for culture, tx if infection present -Maintain cath, cont q4wk changes at ECF -F/U in 3 months, or sooner if needed 2. UTI (urinary tract infection) (N39.0: Urinary tract infection, site not specified) -See #1 Ordered: Body Mass Index (BMI) documented 3008F Current tobacco non-user 1036F Depression Screening Negative 3352F Influenza immunization status assessed 1030F Medication list [...] Recent) 3074F Follow-up With When Contact Information Silvia Bustos PA-C, URL In 3 months Additional Instructions: Patient Education Acute Urinary Retention, Female Problem List/Past Medical History Ongoing Acute kidney injury Altered mental status Bipolar I disorder Depressive disorder Essential hypertension Generalized anxiety disorder Glioblastoma multiforme Hyperlipoproteinemia Menopause Mini stroke Morbid obesity with BMI of 40.0-44.9, adult MS - Multiple sclerosis Smoker Urinary retention UTI (urinary tract infection) Historical No qualifying data Procedure/Surgical History Arthroscopy of shoulder (02/10/2024), Carpal tunnel, Ectopic , Tubal ligation. Medications Biotene Moisturizing Mouth [place] oral, 6x/Day busPIRone 7 (more content not included)...[facility] Comment on above:Result Comment: Electronically Signed By: Silvia Bustos PA-C\.br\Date and Time Signed: 02/17/25 10:12 EDTNo Panel Informationon 47-08-5133Vpcamablqu Dose per Rmzmuhhl025JcxSujyxh Health SystemRADIATION TREATMENT COURSE SUMMARYon 42-86-1395Kkfdct End Ngjk3700[facility] Health SystemCourse VnB1MacSibool Health SystemCourse Start Date11/13/2024[facility] SystemDose Given To [id number] Health SystemElapsed Days45 [facility] SystemFirst Treatment Date12/07/2024[facility] Fractions Dlbblohfep4UxaMbryfe Health SystemFractions Wzvkkdaejj76OqtDveidw Health SystemLast Treatment Date01/21/2025[facility] Health SystemPlan Fractions Obzcmuu0GzzQzjrmb Health SystemPlan Fractions Skdohab73LewHknrdi Health System Plan IDRTempLobeBstProMedica Health SystemPlan IDRtTempLobeEdProMedica Health SystemPlan NameRTempLobeBstProMedica Health SystemPlan NameRtTempLobeEdProMedica Health SystemPlan Total Prescribed [id number] Health SystemPlan Total Prescribed Iafn7975GgrJaefkx Health SystemReference Point IdRx BrainProMedica Health SystemProMedica Health SystemXR LUMBAR SPINE 2 OR 3Von 11-92-1590Ds[address] [address] XRay Report Signed Patient: ANUPAMA VASQUEZ MR#: [id number] : 1970 Acct:[id number] Age/Sex: 54 / F ADM Date: 01/12/25 Loc: [facility] Attending Dr: Non-Staff Physician MNuha Ordering Physician: Riddhi Bills Date of Service: 01/12/25 Procedure(s): XR lumbar spine 2-3V Accession Number(s): [id number] cc: Fred Gracia CARDIOLOGY FELLOW; Riddhi Bills [address] [address] Patient Name: ANUPAMA VASQUEZ MRN: [id number] date: 1970 Sex: F Assigned Patient Location: [facility] Current Patient Location: [facility] Accession/Order Number: [id number] Exam Date: 01/12/2025 12:00 Report Date: 01/12/2025 12:16 At the request of: RIDDHI IBANEZ Procedure: XR lumbar spine 2-3V LUMBAR SPINE - 3 views COMPARISON: CT 08/22/2024 CLINICAL DATA: Acute back pain. No injury. AP as well as lateral lumbar and lumbosacral views were obtained. No acute compression fractures are noted. There is continued anterolisthesis of L4 and L5 approximately 5 mm. There is also minimal retrolisthesis of L5 on S1. There is disc space narrowing at L4-5 and the lumbosacral junction. Tiny endplate spurs are noted. Lower lumbar facet disease is seen. The SI joints are intact. There are no paraspinal soft tissue abnormalities. Splenic granulomas are incidentally seen. XR/XR lumbar spine 2-3V IMPRESSION: DEGENERATIVE CHANGES, GREATER DISTALLY DESCRIBED. NO ACUTE BONY FINDINGS. Impression dictated by: Samira Martinez M.D. 01/12/2025 12:16 PM Dictation Location: [place] [address] Electronically authenticated by: [id number] Y Date: 01/12/2025 12:16 Dictated By: Samira Martinez M.D. Signed By: 01/12/25 1219 DD/ 1216 TD/TT: Trash Hauler:TBHRadiology, Radiologist, - 01/12/2025 [place] [address] XRay Report Signed Patient: ANUPAMA VASQUEZ MR#: [id number] : 1970 Acct:[id number] Age/Sex: 54 / F ADM Date: 01/12/25 Loc: RAD Attending Dr: Non-Staff Physician Yasmin Ordering Physician: Riddhi Bills Date of Service: 01/12/25 Procedure(s): XR lumbar spine 2-3V Accession Number(s): [id number] cc: Fred Gracia CARDIOLOGY FELLOW; Riddhi Bills [facility] [place] [id number] Patient Name: ANUPAMA VASQUEZ MRN: [id number] date: 1970 Sex: F Assigned Patient Location: [facility] Current Patient Location: [facility] Accession/Order Number: [id number] Exam Date: 01/12/2025 12:00 Report Date: 01/12/2025 12:16 At the request of: RIDDHI IBANEZ Procedure: XR lumbar spine 2-3V LUMBAR SPINE - 3 views COMPARISON: CT 08/22/2024 CLINICAL DATA: Acute back pain. No injury. AP as well as lateral lumbar and lumbosacral views were obtained. No acute compression fractures are noted. There is continued anterolisthesis of L4 and L5 approximately 5 mm. There is also minimal retrolisthesis of L5 on S1. There is disc space narrowing at L4-5 and the lumbosacral junction. Tiny endplate spurs are noted. Lower lumbar facet disease is seen. The SI joints are intact. There are no paraspinal soft tissue abnormalities. Splenic granulomas are incidentally seen. XR/XR lumbar spine 2-3V IMPRESSION: DEGENERATIVE CHANGES, GREATER DISTALLY DESCRIBED. NO ACUTE BONY FINDINGS. Impression dictated by: Samira Martinez M.D. 01/12/2025 12:16 PM Dictation Location: [facility] Electronically authenticated by: [id number] Y Date: 01/12/2025 12:16 Dictated By: Samira Martinez M.D. Signed By: 01/12/25 1219 DD/ 1216 TD/TT: Trash Hauler: LAURE HealthcareRadiology Study observation (narrative)NOMS HealthcareXR LUMBAR SPINE 2 OR 3VOrdered By: Radiologist Radiology on 06-45-8797[facility] Work Phone: Urine Cultureon 66-78-7665Ylkswquv identified Cx Nom (U)ORGANISM: Enterococcus faecalis (O:ENTFAC) [place] Count >100,000 Aerobic ROSE Charge (PCMIC38) SUSCEPTIBILITY ORGANISM: O:ENTFAC ANTIBIOTIC INTERPRETATION ROSE Ampicillin S [...] RESISTANT TO ALL B-LACTAM DRUGS. PERFORMED BY: [address] [place] [address] PATHOLOGIST MOBILE HEAVY EQUIPMENT OPERATOR ADILENE GAMINO M.D.[facility] Physician GroupComment on above: Performed By: #### CUU #### [facility] [address] StreetUrine cultureOrdered By: Miri Villafana on 11-27-2024 Bacteria identified Cx Nom (U)Enterococcus faecalisAbThe Bellevue HospitalAmbulatory Visit Summaryon [id number] Visit Summary Ambulatory Visit Summary ANUPAMA VASQUEZ :1970 Visit Date:11/24/2024 Ambulatory [...] signed up for this yet, please contact [employer] at [phone] to get signed up today. Language Information Language assistance services are available as needed. [facility] DaytonUrology Office/Clinic Noteon 01-79-2850Ilcyxvc Office/Clinic NoteUrology Office/Clinic Note Chief Complaint 6 wk f/u [...] of urine, unspecified) 10/09/24: Hx Transferred from [facility] to [facility] on 09/18/24 d/t BRANDON, brain mass w shift and AMS. 1.5Lretention upon admission w BRANDON (Bowl Attendant 15.68) bilat hydro on US, improved to 0.74 on 09/28/24. ECF attempted void trial on 10/02/24 but pt unable to void so Alexsi replaced. She's currently working w PT toincrease [...] BMs can consider another void trial at thattime. SINCE LAST OV: Admitted at [facility] 10/17-10/22 w Sepsis, NSTEMI, Heart Failure. Urine Cx showed Proteus. Alexis was dc'd on day of discharge (unclear why). Treated for another UTI 11/10 (Levaquin). Per heme/onc note (Guillermo Mendoza) pt starting chemo/radiation with palliative goals. Started pt on daily Bactrim #60. Seeing nephrology d/t acute on CKD. 11/07 Bowl Attendant 3.05 TODAY: PVR 927ml. Pt does not have sensation of incomplete emptying. Comfortable. Voiding, mostly in brief. Advised we need to replace Alexis vs start CIC. Pt prefers indwelling Alexis. Order written for ECF to replace upon return to facility today and maintain w Q4wk changes. Ordered: [id number] Pain severity quantified; no pain present 446[address] Measure Post Void residual urine and/or bladder [...] abx currently. Follow-up With When Contact Information SHOAIB FIGUEROA, REGINA Pedraza, LEODAN In 3 months [address] [place] [address] Additional Instructions: Patient Education Acute Urinary Retention, Female, Bzit-rb-Vlor Problem List/Past Medical History Ongoing Bipolar I [...] Use:. Never Smokeless Tobacco Use:. Cigarettes, Yes, 11/24/2024[facility] Hospital DaytonComment on above:Result Comment: Electronically Signed By: REGINA MATTHEWS PA-C\.br\Date and Time Signed: 11/24/2508:07 EDTMR BRAIN W WO CONTon 82-50-9970FA BRAIN W WO CONTMR BRAIN W WO CONT EXAM: MR BRAIN W WO CONT TECHNIQUE: Multiplanar multisequence MR imaging of the brain was performed prior to and following the uneventful administration of intravenous contrast. CLINICAL HISTORY: Treatment planning. Glioblastoma. COMPARISON: 09/19/2024 FINDINGS: There are postsurgical changes compatible with interval right-sided craniotomy and resection of a previously seen complex right temporal lobe mass, compatible with high-grade GUEST ADVISOR glioma. There is expected post surgical distortion [...] compatible with a postsurgical in etiology. There yumiko small extra- axial fluid collection underlying the craniotomy site measuring up to 0.5 cm in thickness, presumed postsurgical in etiology. There is no significant mass effect upon the adjacent righttemporal lobe. Previously seen extensive right cerebral vasogenic type edema has significantly improved in the interval. There remains smaller foci of right frontoparietal subcortical and deep white matter FLAIR hyperintensity. Foci of infiltrative nonenhancing neoplasm cannot be completely excluded. Table appearance of focal chronic left frontal lobe encephalomalacia and gliosis, compatible withan old infarct. There are additional scattered nonaggressive [...] right temporal lobe mass, compatible with high-grade GUEST ADVISOR glioma. Expected postsurgical distortion is noted, as [...] of small foci of infiltrative nonenhancing neoplasm cannotbe excluded. 3. No intracranial mass effect. 4. 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 There is no evidence for an acute infarct. Finalized by Sebastian Grayson MD on 11/13/2024 11:34 AMNormalProMedica San Joaquin General Hospital ALL BASIC METABOLIC PANELon 53-69-4220Nejuw gap [Moles/Vol]11.9 mmol/LNOMS HealthcareCalcium [Mass/Vol]8.5 mg/dL8.5 - 10.1 mg/dLNOMS HealthcareChloride [Moles/Vol]108 mmol/LHigh98 - 107 mmol/LNOMS HealthcareCO2 [Moles/Vol]32.8 mmol/LHigh21.0 - 32.0 mmol/LNOMS HealthcareCreatinine [Mass/Vol]3.05 mg/dLHigh 0.55 - 1.02 mg/dLNOCA HealthcareGFR/1.73 sq M.predicted CKD-EPI (S/P/Bld) [Vol rate/Area]19Low>=60 mL/min/1.73m 2NOMS HealthcareGlucose [Mass/Vol]99 mg/dL74 - 106 mg/dLNOCA HealthcareInterpretation and review of laboratory resultsAbnormal NOMS HealthcarePotassium [Moles/Vol]3.7 mmol/L3.5 - 5.1 mmol/LNOMS Healthcare Sodium [Moles/Vol]149 mmol/ODhls706 - 145 mmol/LNOMS HealthcareTBH EGFR-NON AF WZRREQHD46Nuo>=60 mL/min/1.73m 2NOMS HealthcareUrea nitrogen [Mass/Vol]36 mg/dL High7.0 - 18.0 mg/dLNOCA HealthcareUrea nitrogen/Creatinine [Mass ratio]11.8 mg/mgNOMS HealthcareCLINISYNCNSTILLWATER MEDICAL CENTER – [facility]ILL[facility] HealthcareUrine Cultureon 32-95-6819Yrlgjvzz identified Cx Nom (U)ORGANISM: Proteus mirabilis (O:PROMIR) [place] Count >100,000 Aerobic ROSE Charge (NMIC56) SUSCEPTIBILITY [...] RESISTANT TO ALL B-LACTAM DRUGS. PERFORMED BY: [place] [address] PATHOLOGIST MOBILE HEAVY EQUIPMENT OPERATOR ADILENE GAMINO M.D.NormalOrlando Health Arnold Palmer Hospital For Children Physician GroupComment on above: Performed By: #### CUU #### [place] [address] USAUrine cultureOrdered By: Alonzo Holguin on 13-47-4621Qmvcwpru identified Cx Nom (U)Proteus mirabilisAbnFairfield Medical Center Ambulatory Visit Summaryon 52-81-3199Zqmsceqkoj Visit SummaryAmbulatory Visit Summary ANUPAMA VASQUEZ :1970 Visit Date:10/09/2024 Ambulatory Visit Instructions Your Diagnosis Urinary retention Your Care Team Attending Physician - SHOAIB FIGUEROA, REGINA Pedraza Primary Care Physician - [...] you for choosing us for your care. [facility] DaytonBASI METABOLIC PANELon 68-06-7937Levqa gap [Moles/Vol]11 mmol/LNormal5-15[facility] Comment on above:Performed By: #### PINR #### [facility] ([facility]) [address] [place] [address] VIRCalcium [Mass/Vol]8.8 mg/dLNormal8.5-10.5Pro[facility]ica [facility] Memorial HospitalComment on above:Performed By: #### PINR #### [facility] ([facility]) [address] [place] [address] VIRChloride [Moles/Vol]106 mmol/FCzgnan50-399BugOmwhvd [facility] HospitalComment on above:Performed By: #### PINR #### [facility] ([facility]) [address] [place] [address] VIRCO2 [Moles/Vol]23 mmol/EUzuoot13-41WepMqztrq [facility] Comment on above:Performed By: #### PINR #### [facility] ([facility]) [address] [place] [address] VIRCreatinine [Mass/Vol]0.74 mg/dLNormal0.40-1.00ProWyandot Memorial Hospitalca [facility] HospitalComment on above:Result Comment: METHOD TRACEABLE TO IDMS STANDARDPerformed By: #### PINR #### [facility] ([facility]) [address] [place] [address] VIREGFR (CKD-EPI) NON-RACE DEPENDENT>^90Normal>=60ProJoint Township District Memorial Hospital HospitalComment on above:Result Comment: Reported eGFR is based on the CKD-EPI 2020 equation that does not use a race coefficient.Performed By: #### PINR #### [facility] ([facility]) [address] [place] [address] VIRGlucose [Mass/Vol]94 mg/gBPrrioz92-21VclKrynii [facility] HospitalComment on above:Performed By: #### PINR #### [facility] ([facility]) [address] [place] [address] VIRPotassium [Moles/Vol]4.4 mmol/LNormal3.5-5.0ProWyandot Memorial Hospitalca [facility] HospitalComment on above:Performed By: #### PINR #### [facility] ([facility]) [address] [place] [address] VIRSodium [Moles/Vol]140 mmol/IEgdenm039-781YcxDlgtbw Solorzano HospitalComment on above:Performed By: #### PINR #### [facility] ([facility]) [address] [place] [address] VIRUrea nitrogen [Mass/Vol]26 mg/dLHigh5-23St. Rita's HospitalComment on above:Performed By: #### PINR #### [facility] ([facility]) [address] [place] [address] VIRBasic Metabolic Panelon 55-87-6772Hrynp gap [Moles/Vol]11 mmol/L5 - 15 mmol/LPrHealthSouth Rehabilitation Hospital of Littleton Health SystemCalcium [Mass/Vol]8.8 mg/dL8.5 - 10.5 mg/dLRegency Hospital ToledoChloride [Moles/Vol]106 mmol/L98 - 109 mmol/L [facility] SystemCO2 [Moles/Vol]23 mmol/L22 - 32 mmol/[facility] SystemCreatinine [Mass/Vol]0.74 mg/dL0.40 - 1.00 mg/dLRegency Hospital Toledo EGFR Non-Race Dependent- PINMissouri Baptist Medical CenterGlucose [Mass/Vol]94 mg/dL65 - 99 mg/dLRegency Hospital ToledoInterpretation and review of laboratory resultsAbnormalRegency Hospital ToledoPotassium [Moles/Vol]4.4 mmol/L3.5 - 5.0 mmol/LPrHealthSouth Rehabilitation Hospital of Littleton Health SystemSodium [Moles/Vol]140 mmol/L134 - 146 mmol/L Regency Hospital ToledoUrea nitrogen [Mass/Vol]26 mg/dLHigh5 - 23 mg/dLRegency Hospital ToledoCBC WITH AUTO DIFFERENTIALon 21-57-3482VCMRWKPEN ABSOLUTE COUNT (10*3/UL) BY AUTOMATED COUNT0.0 10*3/uLNormal0.0-0.2PUniversity [facility]als [facility] Comment on above:Result Comment: This is an appended report. These results have been appended to a previously preliminary verified report.Performed By: #### PINR #### [facility] ([facility]) [address] [place] [address] VIRBASOPHILS RELATIVE PERCENT BY AUTOMATED COUNT0.1 %Normal [facility] HospitalComment on above:Result Comment: This is an appended report. These results have been appended to a previously preliminary verified report.Performed By: #### PINR #### [facility] ([facility]) [address] [place] [address] VIRCELLAVISION DIFFERENTIAL TYPEAUTOMATED DIFFERENTIALNormal [facility] HospitalComment on above:Result Comment: This is an appended report. These results have been appended to a previously preliminary verified report.Performed By: #### PINR #### [facility] ([facility]) [address] [place] [address] VIREosinophils (Bld) [#/Vol]0.0 10*3/uLNormal0.0-0.4ProWyandot Memorial Hospitalca [facility] HospitalComment on above:Result Comment: This is an appended report. These results have been appended to a previously preliminary verified report. Performed By: #### PINR #### [facility] ([facility]) [address] [place] [address] VIREOSINOPHILS RELATIVE PERCENT BY AUTOMATED COUNT0.1 %Normal [facility] HospitalComment on above:Result Comment: This is an appended report. These results have been appended to a previously preliminary verified report.Performed By: #### PINR #### [facility] ([facility]) [address] [place] [address] VIRErythrocyte distribution width (RBC) [Ratio]16.4 %High 11.5-15ProMedica [facility]ifay HospitalComment on above:Performed By: #### PINR #### [facility] ([facility]) [address] [place] [address] VIRHematocrit (Bld) [Volume fraction]35.5 %Lrneml59-42FtfLzobyo [facility] HospitalComment on above:Performed By: #### PINR #### [facility] ([facility]) [address] [place] [address] VIRHemoglobin (Bld) [Mass/Vol]11.5 g/dLLow11.7-15.5PCommunity Regional Medical Center HospitalComment on above:Performed By: #### PINR #### [facility] ([facility]) [address] [place] [address] VIRLYMPHOCYTES ABSOLUTE COUNT (10*3/UL) BY AUTOMATED COUNT1.3 10*3/uLNormal1.0-3.5PCommunity Regional Medical Center HospitalComment on above:Result Comment: This is an appended report. These results have been appended to a previously preliminary verified report.Performed By: #### PINR #### [facility] ([facility]) [address] [place] [address] VIRLYMPHOCYTES RELATIVE PERCENT BY AUTOMATED COUNT8.3 %Normal St. Rita's HospitalComment on above:Result Comment: This is an appended report. These results have been appended to a previously preliminary verified report.Performed By: #### PINR #### [facility] ([facility]) [address] [place] [address] VIRMCH (RBC) [Entitic mass]27.0 hmUqvgfh24-08NgpXwyibb [place] HospitalComment on above:Performed By: #### PINR #### [facility] ([facility]) [address] [place] [address] VIRMCHC (RBC) [Mass/Vol]32.5 g/mRHiktkn89-33FqiCsefjp [place] HospitalComment on above:Performed By: #### PINR #### [facility] ([facility]) [address] [place] [address] VIRMCV (RBC) [Entitic vol]83 uSOnklwa23-222XkvThidnc [place] HospitalComment on above:Performed By: #### PINR #### [facility] ([facility]) [address] [place] [address] VIRMONOCYTES ABSOLUTE COUNT (10*3/UL) BY AUTOMATED COUNT1.8 10*3/uLHigh0.0-0.9ProJoint Township District Memorial Hospital HospitalComment on above:Result Comment: This is an appended report. These results have been appended to a previously prelimi nary verified report.Performed By: #### PINR #### [facility] ([facility]) [address] [place] [address] VIRMONOCYTES RELATIVE PERCENT BY AUTOMATED COUNT11.3 %Normal [facility] HospitalComment on above:Result Comment: This is an appended report. These results have been appended to a previously preliminary verified report.Performed By: #### PINR #### [facility] ([facility]) [address] [place] [address] VIRNEUTROPHILS ABSOLUTE COUNT BY AUTOMATED COUNT12.4 10*3/uL High1.5-6.6ProFayette County Memorial HospitalComment on above:Result Comment: This is an appended report. These results have been appended to a previously preliminary verified report.Performed By: #### PINR #### [facility] ([facility]) [address] [place] [address] VIRNEUTROPHILS RELATIVE PERCENT BY AUTOMATED COUNT80.2 %Normal [facility]. Rita's HospitalComment on above:Result Comment: This is an appended report. These results have been appended to a previously preliminary verified report.Performed By: #### PINR #### [facility] ([facility]) [address] [place] [address] VIRPlatelet mean volume (Bld) [Entitic vol]10.7 fLNormal7-12 ProMCleveland Clinic [facility] HospitalComment on above:Performed By: #### PINR #### [facility] ([facility]) [address] [place] [address] VIRPlatelets (Bld) [#/Vol]115 10*3/iXRaf896-816QurVtpddp [place] HospitalComment on above:Performed By: #### PINR #### [facility] ([facility]) [address] [place] [address] VIRRBC COUNT4.27 X10E12/LNormal3.8-5.2PUniversity Hospitals [facility] Comment on above:Performed By: #### PINR #### [facility] ([facility]) [address] [place] [address] VIRWBC (Bld) [#/Vol]15.5 10*3/uLHigh4-11St. Rita's HospitalComment on above:Performed By: #### PINR #### [facility] ([facility]) [address] [place] [address] VIRCBC auto differentialon 27-01-1973Izxsfiscd (Bld) [#/Vol]0 10*3/uL0.0 - 0.2 10*3/uLRegency Hospital ToledoBasophils/100 WBC (Bld)0.1 % [facility] Hospital ToledoDifferential cell count method Nom (Bld)AUTOMATED DIFFERENTIALRegency Hospital ToledoEosinophils (Bld) [#/Vol]0 10*3/uL0.0 - 0.4 10*3/uLRegency Hospital ToledoEosinophils/100 WBC (Bld)0.1 %[facility] Hospital ToledoErythrocyte distribution width (RBC) [Ratio]16.4 %High11.5 - 15 %Reg[facility] Hospital ToledoHematocrit (Bld) [Volume fraction]35.5 %35 - 47 %[facility] Hospital ToledoHemoglobin (Bld) [Mass/Vol]11.5 g/dLLow11.7 - 15.5 g/dLRegency Hospital ToledoInterpretation and review of laboratory resultsAbnormalRegency Hospital ToledoLymphocytes (Bld) [#/Vol]1.3 10*3/uL1.0 - 3.5 10*3/uLRegency Hospital ToledoLymphocytes/100 WBC (Bld)8.3 %[facility] HospitalH (RBC) [Entitic mass]27 pg27 - 34 [facility] HospitalMCHC (RBC) [Mass/Vol]32.5 g/dL32 - 36 g/dLRegency Hospital ToledoMCV (RBC) [Entitic vol]83 fL80 - 100 [facility] WestMonocytes (Bld) [#/Vol]1.8 10*3/uLHigh0.0 - 0.9 10*3/uLRegency Hospital ToledoMonocytes/100 WBC (Bld)11.3 %[facility] Hospital ToledoNeutrophils (Bld) [#/Vol]12.4 10*3/uLHigh1.5 - 6.6 10*3/[facility] Neutrophils/100 WBC (Bld)80.2 %[facility] Hospital ToledoPlatelet mean volume (Bld) [Entitic vol]10.7 fL7 - 12 [facility] WestPlatelets (Bld) [#/Vol]115 10*3/uLLowMercy Health Fairfield Hospital SystemRBC (Bld) [#/Vol]4.27 10*6/[facility] City HospitalWBC LM Ql (Sput)15.5HighShriners Hospitals for Children - PhiladelphiaFL SWALLOW MOTILITY FUNCTIONon 75-27-9007VX SWALLOW MOTILITY FUNCTIONFL SWALLOW MOTILITY FUNCTION FL SWALLOW MOTILITY FUNCTION [...] by Jayla Arroyo MD on 09/28/2024 3:08 PMNormalSt. Rita's Hospital IONIZED CALCIUMon 10-19-1516XTTWHMS CALCIUM - ICAN4.3 mg/dLLow4.5-5.3PUniversity Hospitals Elyria Medical CenterComment on above:Performed By: #### PINR #### [facility] ([facility]) [address] [place] [address] VIRIonized calciumon 47-26-6513Kkpxbhv.ionized ISE [Moles/Vol] 4.3 mg/dLLow4.5 - 5.3 mg/dLRegency Hospital ToledoInterpretation and review of laboratory resultsAbnormReading Hospital MAGNESIUMon 69-37-8643Otdongioi [Mass/Vol]1.8 mg/dLNormal1.8-2.6ProFayette County Memorial HospitalComment on above:Performed By: #### PINR #### [facility] ([facility]) [address] [place] [address] VIRMagnesiumon 17-95-0792Wwhmutmhg [Mass/Vol]1.8 mg/dL1.8 - 2.6 mg/dLRegency Hospital ToledoNo Panel Informationon 20-23-6496Glyzonoguwsdod and review of laboratory resultsNormReading HospitalPHOSPHORUSon 14-74-2580Eqsnhfvqb [Mass/Vol]2.6 mg/dLNormal2.4-4.9St. Rita's HospitalComment on above:Performed By: #### PINR #### [facility] ([facility]) [address] [place] [address] VIRPhosphoruson 22-99-5016Owduneqvw [Mass/Vol]2.6 mg/dL2.4 - 4.9 mg/dLCleveland Clinic Medina Hospital videography Hypopharynx and Esophagus Viewson 75-09-5974MJKJFFFWTBZzxKqikck Health SystemRadiology Study observation (narrative)[facility] videography Hypopharynx and Esophagus Views Ordered By: Jayla Arroyo on 97-80-0720SciOzczuqRegency Hospital Toledo Work Phone: BASIC METABOLIC PANELon 81-99-3629Njptj gap [Moles/Vol]10 mmol/LNormal5-15ProFayette County Memorial HospitalComment on above: Performed By: #### PINR #### [facility] ([facility]) [address] [place] [address] VIRCalcium [Mass/Vol]9.0 mg/dLNormal8.5-10.5PUniversity Hospitals Elyria Medical CenterComment on above:Performed By: #### PINR #### [facility] ([facility]) [address] [place] [address] VIRChloride [Moles/Vol]109 mmol/QZhtgce97-742EkiInzizo [place] HospitalComment on above:Performed By: #### PINR #### [facility] ([facility]) [address] [place] [address] VIRCO2 [Moles/Vol]25 mmol/QTmrxsp92-27TkhTwcowh [facility] Comment on above:Performed By: #### PINR #### [facility] ([facility]) [address] [place] [address] VIRCreatinine [Mass/Vol]0.74 mg/dLNormal0.40-1.00ProJoint Township District Memorial Hospital HospitalComment on above:Result Comment: METHOD TRACEABLE TO IDMS STANDARDPerformed By: #### PINR #### [facility] ([facility]) [address] [place] [address] VIREGFR (CKD-EPI) NON-RACE DEPENDENT>^90Normal>=60ProJoint Township District [facility] HospitalComment on above:Result Comment: Reported eGFR is based on the CKD-EPI 2020 equation that does not use a race coefficient.Performed By: #### PINR #### [facility] ([facility]) [address] [place] [address] VIRGlucose [Mass/Vol]101 mg/tSZzkm85-68NijNjbumz [place] HospitalComment on above:Performed By: #### PINR #### [facility] ([facility]) [address] [place] [address] VIRPotassium [Moles/Vol]4.6 mmol/LNormal3.5-5.0ProJoint Township District Memorial Hospital HospitalComment on above:Performed By: #### PINR #### [facility] ([facility]) [address] [place] [address] VIRSodium [Moles/Vol]144 mmol/JZaluxw354-790OwdUcpnzv [place] HospitalComment on above:Performed By: #### PINR #### [facility] ([facility]) [address] [place] [address] VIRUrea nitrogen [Mass/Vol]27 mg/dLHigh5-23ProJoint Township District Memorial Hospital HospitalComment on above:Performed By: #### PINR #### [facility] ([facility]) [address] [place] [address] VIRBasic Metabolic Panelon 60-76-3890Xdqed gap [Moles/Vol]10 mmol/L5 - 15 mmol/[facility] CenteroMedica Health SystemCalcium [Mass/Vol]9 mg/dL8.5 - 10.5 mg/dLMercy Health Fairfield Hospital SystemChloride [Moles/Vol]109 mmol/L98 - 109 mmol/L [facility] SystemCO2 [Moles/Vol]25 mmol/L22 - 32 mmol/[facility] CenteroMedica Health SystemCreatinine [Mass/Vol]0.74 mg/dL0.40 - 1.00 mg/dLMercy Health Fairfield Hospital System EGFR Non-Race Dependent- PINFulton County Health Center SystemGlucose [Mass/Vol]101 mg/dL High65 - 99 mg/dLMercy Health Fairfield Hospital SystemInterpretation and review of laboratory resultsAbnormalProCrystal Clinic Orthopedic Center SystemPotassium [Moles/Vol]4.6 mmol/L3.5 - 5.0 mmol/LProMedica Health SystemSodium [Moles/Vol]144 mmol/L134 - 146 mmol/L [facility] SystemUrea nitrogen [Mass/Vol]27 mg/dLHigh5 - 23 mg/dLRegency Hospital ToledoCBC WITH AUTO DIFFERENTIALon [id number] DIFFERENTIAL TYPECELLAVISION DIFFERENTIALNormalSt. Rita's HospitalComment on above: Result Comment: This is an appended report. These results have been appended to a previously preliminary verified report.Performed By: #### UNAR #### [facility] ([facility]) [address] [place] [address] VIRCELLAVISION LYMPHOCYTES ABSOLUTE COUNT (10*3/UL) BY MANUAL COUNT0.8 10*3/uLLow1.0-3.5ProMedica [facility]ano HospitalComment on above:Result Comment: This is an appended report. These results have been appended to a previously preliminary verified report.Performed By: #### UNAR #### [facility] ([facility]) [address] [place] [address] VIRCELLAVISION LYMPHOCYTES RELATIVE PERCENT BY MANUAL COUNT5 % NormalProMedica Solorzano HospitalComment on above:Result Comment: This is an appended report. These results have been appended to a previously preliminary verified report.Performed By: #### UNAR #### [facility] ([facility]) [address] [place] [address] VIRCELLAVISION MONOCYTES ABSOLUTE COUNT (10*3/UL) IN BLOOD BY MANUAL COUNT2.2 10*3/uLHigh0.0-0.9ProMedica Solorzano HospitalComment on above: Result Comment: This is an appended report. These results have been appended to a previously preliminary verified report.Performed By: #### UNAR #### [facility] ([facility]) [address] [place] [address] VIRCELLAVISION MONOCYTES RELATIVE PERCENT BY MANUAL COUNT13 % NormalProMedica Solorzano HospitalComment on above:Result Comment: This is an appended report. These results have been appended to a previously preliminary verified report.Performed By: #### UNAR #### [facility] ([facility]) [address] [place] [address] VIRCELLAVISION MYELOCYTE RELATIVE PERCENT BY MANUAL COUNT1 % NormalProMedica Solorzano HospitalComment on above:Result Comment: This is an appended report. These results have been appended to a previously preliminary verified report.Performed By: #### UNAR #### [facility] ([facility]) [address] [place] [address] VIRCELLAVISION NEUTROPHILS ABSOLUTE COUNT BY MANUAL COUNT14.0 10*3/uLHigh1.5-6.6ProWyandot Memorial Hospitalca Bonif[place] HospitalComment on above:Result Comment: This is an appended report. These results have been appended to a previously prelimi nary verified report.Performed By: #### UNAR #### [facility] ([facility]) [address] [place] [address] VIRCELLAVISION NEUTROPHILS RELATIVE PERCENT BY MANUAL COUNT82 % NormalProJoint Township District Memorial Hospital HospitalComment on above:Result Comment: This is an appended report. These results have been appended to a previously preliminary verified report.Performed By: #### UNAR #### [facility] ([facility]) [address] [place] [address] VIRErythrocyte distribution width (RBC) [Ratio]16.6 %High 11.5-15ProWyandot Memorial Hospitalca [place] HospitalComment on above:Performed By: #### UNAR #### [facility] ([facility]) [address] [place] [address] VIRHematocrit (Bld) [Volume fraction]34.3 %Unm06-99PttJahyzj [place] HospitalComment on above:Performed By: #### UNAR #### [facility] ([facility]) [address] [place] [address] VIRHemoglobin (Bld) [Mass/Vol]11.3 g/dLLow11.7-15.5ProMedica Bonif[place] HospitalComment on above:Performed By: #### UNAR #### [facility] ([facility]) [address] [place] [address] VIRMCH (RBC) [Entitic mass]27.3 veFtubhz07-01XiePfskeu [place] HospitalComment on above:Performed By: #### UNAR #### [facility] ([facility]) [address] [place] [address] VIRMCHC (RBC) [Mass/Vol]33.0 g/jKWzwkpc69-77LycHzxsih [place] HospitalComment on above:Performed By: #### UNAR #### [facility] ([facility]) [address] [place] [address] VIRMCV (RBC) [Entitic vol]83 gJYtiqsq37-639TmwDzcien [place] HospitalComment on above:Performed By: #### UNAR #### [facility] ([facility]) [address] [place] [address] VIRPlatelet mean volume (Bld) [Entitic vol]11.6 fLNormal7-12 ProMCleveland Clinic [facility] HospitalComment on above:Performed By: #### UNAR #### [facility] ([facility]) [address] [place] [address] VIRPlatelets (Bld) [#/Vol]116 10*3/xWRau342-572MkeQowgtk [place] HospitalComment on above:Performed By: #### UNAR #### [facility] ([facility]) [address] [place] [address] VIRRBC COUNT4.14 X10E12/LNormal3.8-5.2PUniversity [facility]als [facility] Comment on above:Performed By: #### UNAR #### [facility] ([facility]) [address] [place] [address] VIRWBC (Bld) [#/Vol]17.1 10*3/uLHigh4-11[facility] HospitalComment on above:Performed By: #### UNAR #### [facility] ([facility]) [address] [place] [address] VIRCBC auto differentialon 1968Mxwiedmoalki cell count method Nom (Bld)CELLAVISION DIFFERENTIALProSumma Health Akron CampusErythrocyte distribution width (RBC) [Ratio]16.6 %High11.5 - 15 %[facility] Hematocrit (Bld) [Volume fraction]34.3 %Low35 - 47 %[facility] Hemoglobin (Bld) [Mass/Vol]11.3 g/dLLow11.7 - 15.5 g/dLRegency Hospital [place] Interpretation and review of laboratory resultsAbnormLicking Memorial Hospital Lymphocytes (Bld) [#/Vol]0.8 10*3/uLLow1.0 - 3.5 10*3/uLRegency Hospital [place] MCH (RBC) [Entitic mass]27.3 pg27 - [address] Elizabeth Boardman HospitalMCHC (RBC) [Mass/Vol]33 g/dL32 - 36 g/dLRegency Hospital ToledoMCV (RBC) [Entitic vol]83 fL 80 - 100 [facility] WestMonocytes (Bld) [#/Vol]2.2 10*3/uLHigh0.0 - 0.9 10*3/[facility] HospitalMonocytes/100 WBC (Bld)13 %[facility] ToledoMyelocytes/100 WBC (Bld)1 %[facility] ToledoNeutrophils (Bld) [#/Vol]14 10*3/uLHigh1.5 - 6.6 10*3/uLRegency Hospital ToledoNeutrophils/100 WBC (Bld)82 %[facility] ToledoPlatelet mean volume (Bld) [Entitic vol]11.6 fL 7 - 12 [facility] WestPlatelets (Bld) [#/Vol]116 10*3/uLLowRegency Hospital ToledoRBC (Bld) [#/Vol]4.14 10*6/[facility] City HospitalVariant lymphocytes/100 WBC (Bld)5 %[facility] ToledoWBC LM Ql (Sput)17.1High [facility] SystemIONIZED CALCIUMon 09-27-2024 IONIZED CALCIUM - ICAN4.8 mg/dLNormal4.5-5.3PUniversity Hospitals Elyria Medical CenterComment on above:Performed By: #### UNAR #### [facility] ([facility]) [address] [place] [address] VIRIonized calciumon 78-62-8918Occzlig.ionized ISE [Moles/Vol] 4.8 mg/dL4.5 - 5.3 mg/dLRegency Hospital ToledoInterpretation and review of laboratory resultsNormReading HospitalMAGNESIUM on 20-46-7983Gcfmsciap [Mass/Vol]1.9 mg/dLNormal1.8-2.6[facility] Comment on above:Performed By: #### UNAR #### [facility] ([facility]) [address] [place] [address] VIRMagnesiumon 11-48-9675Qqsuyglrr [Mass/Vol]1.9 mg/dL1.8 - 2.6 mg/dLRegency Hospital ToledoNo Panel Informationon 60-10-8919Bsalepcvlzkxjm and review of laboratory resultsNoMeadville Medical CenterPHOSPHORUSon 61-44-8145Bxghaweci [Mass/Vol]2.8 mg/dLNormal2.4-4.9St. [facility]'s HospitalComment on above:Performed By: #### UNAR #### [facility] ([facility]) [address] [place] [address] VIRPhosphoruson 27-51-6669Jdevyskjm [Mass/Vol]2.8 mg/dL2.4 - 4.9 mg/dLRegency Hospital ToledoXR CHEST 1 VWon 79-14-2613TF CHEST 1 VWXR CHEST 1 VW Single view chest History:evaluate for PNA Difficulty breathing, shortness of breath Comparison: 09/23/2024 Findings: Single portable view of the chest. Stable cardiomediastinal silhouette. No focal opacity, effusion or pneumothorax. Impression: No significant interval change or definitive acute process. Finalized by Eliazar Sterling MD on 09/27/2024 6:34 AMNormalSt. Rita's HospitalXR Chest Single viewon [id number] Health System Radiology Study observation (narrative)[facility] ToledoXR Chest Single viewOrdered By: Eliazar Sterling on 11-51-9086PyuFyuekgRegency Hospital [place] Work Phone: Bacteria identified Aer cx Nom (Bld)Ordered By: Sheng Calderon on 90-65-4093Dlrcucoh identified Aer cx Nom (Unsp spec)NO GROWTH 5 DAYS [facility] SystemProMedica Health SystemProCrystal Clinic Orthopedic Center SystemBASIC METABOLIC PANELon 69-09-2205Undsr gap [Moles/Vol]10 mmol/LNormal5-15ProJoint Township District [facility] HospitalComment on above:Performed By: #### UNAR #### [facility] ([facility]) [address] [place] [address] VIRCalcium [Mass/Vol]8.6 mg/dLNormal8.5-10.5PCommunity [facility] HospitalComment on above:Performed By: #### UNAR #### [facility] ([facility]) [address] [place] [address] VIRChloride [Moles/Vol]107 mmol/PNhuvgo30-253DkwEszcfe [place] HospitalComment on above:Performed By: #### UNAR #### [facility] ([facility]) [address] [place] [address] VIRCO2 [Moles/Vol]24 mmol/THyxvrj72-30SevXhqpnm [facility] Comment on above:Performed By: #### UNAR #### [facility] ([facility]) [address] [place] [address] VIRCreatinine [Mass/Vol]0.80 mg/dLNormal0.40-1.00ProJoint Township District Memorial Hospital HospitalComment on above:Result Comment: METHOD TRACEABLE TO IDMS STANDARDPerformed By: #### UNAR #### [facility] ([facility]) [address] [place] [address] VIRGFR/1.73 sq M.predicted among non-blacks MDRD (S/P/Bld) [Vol rate/Area]86 mL/min/{1.73_m2}Normal>=60ProJoint Township District Memorial Hospital HospitalComment on above:Result Comment: Reported eGFR is based on the CKD-EPI 2020 equation that does not use a race coefficient.Performed By: #### UNAR #### [facility] ([facility]) [address] [place] [address] VIRGlucose [Mass/Vol]165 mg/rXRumr19-37GkcZnonxnFayette County Memorial HospitalComment on above:Performed By: #### UNAR #### [facility] ([facility]) [address] [place] [address] VIRPotassium [Moles/Vol]4.0 mmol/LNormal3.5-5.0ProJoint Township District [facility] Hospital HospitalComment on above:Performed By: #### UNAR #### [facility] ([facility]) [address] [place] [address] VIRSodium [Moles/Vol]141 mmol/QJfhlhw159-759EtnRuixbx [place] HospitalComment on above:Performed By: #### UNAR #### [facility] ([facility]) [address] [place] [address] VIRUrea nitrogen [Mass/Vol]24 mg/dLHigh5-23ProJoint Township District Memorial Hospital HospitalComment on above:Performed By: #### UNAR #### [facility] ([facility]) [address] [place] [address] VIRBasic Metabolic Panelon 31-29-6545Wnecp gap [Moles/Vol]10 mmol/L5 - 15 mmol/LPrHealthSouth Rehabilitation Hospital of Littleton Health SystemCalcium [Mass/Vol]8.6 mg/dL8.5 - 10.5 mg/dLProCrystal Clinic Orthopedic Center SystemChloride [Moles/Vol]107 mmol/L98 - 109 mmol/L ProMedicMercy Hospital of [facility] SystemCO2 [Moles/Vol]24 mmol/L22 - 32 mmol/LProMedNationwide Children's Hospital SystemCreatinine [Mass/Vol]0.8 mg/dL0.40 - 1.00 mg/dLProCrystal Clinic Orthopedic Center SystemEGFR Non-Race Veoajxvxn57- PINFProMedNationwide Children's Hospital SystemGlucose [Mass/Vol]165 mg/dL High65 - 99 mg/dLMercy Health Fairfield Hospital SystemInterpretation and review of laboratory resultsAbnormalProCrystal Clinic Orthopedic Center SystemPotassium [Moles/Vol]4 mmol/L3.5 - 5.0 mmol/LProMedCleveland Clinic Avon Hospitalodium [Moles/Vol]141 mmol/L134 - 146 mmol/L ProMNorthland Medical Center SystemUrea nitrogen [Mass/Vol]24 mg/dLHigh5 - 23 mg/dLProSumma Health Akron CampusProSumma Health Akron CampusCBC WITH AUTO DIFFERENTIALon 09-25-2024 CELLAVISION DIFFERENTIAL TYPECELLAVISION DIFFERENTIALNormalProFayette County Memorial HospitalComment on above:Result Comment: This is an appended report. These results have been appended to a previously preliminary verified report.Performed By: #### CPK #### [facility] ([facility]) [address] [place] [address] VIRCELLAVISION LYMPHOCYTES ABSOLUTE COUNT (10*3/UL) BY MANUAL COUNT0.7 10*3/uLLow1.0-3.5PUniversity Hospitals Elyria Medical CenterComment on above:Result Comment: This is an appended report. These results have been appended to a previously preliminary verified report.Performed By: #### CPK #### [facility] ([facility]) [address] [place] [address] VIRCELLAVISION LYMPHOCYTES RELATIVE PERCENT BY MANUAL COUNT3 % NormalProFayette County Memorial HospitalComcorewell health ludington hospital on above:Result Comment: This is an appended report. These results have been appended to a previously preliminary verified report.Performed By: #### CPK #### [facility] ([facility]) [address] [place] [address] VIRCELLAVISION MONOCYTES ABSOLUTE COUNT (10*3/UL) IN BLOOD BY MANUAL COUNT2.5 10*3/uLHigh0.0-0.9ProFayette County Memorial HospitalComment on above: Result Comment: This is an appended report. These results have been appended to a previously preliminary verified report.Performed By: #### CPK #### [facility] ([facility]) [address] [place] [address] VIRCELLAVISION MONOCYTES RELATIVE PERCENT BY MANUAL COUNT11 % NormalProFayette County Memorial HospitalComcorewell health ludington hospital on above:Result Comment: This is an appended report. These results have been appended to a previously preliminary verified report.Performed By: #### CPK #### [facility] ([facility]) [address] [place] [address] VIRCELLAVISION MYELOCYTE RELATIVE PERCENT BY MANUAL COUNT1 % NormalProMedica Solorzano HospitalComment on above:Result Comment: This is an appended report. These results have been appended to a previously preliminary verified report.Performed By: #### CPK #### [facility] ([facility]) [address] [place] [address] VIRCELLAVISION NEUTROPHILS ABSOLUTE COUNT BY MANUAL COUNT20.4 10*3/uLHigh1.5-6.6ProMedica [place]ano HospitalComment on above:Result Comment: This is an appended report. These results have been appended to a previously prelimi nary verified report.Performed By: #### CPK #### [facility] ([facility]) [address] [place] [address] VIRCELLAVISION NEUTROPHILS RELATIVE PERCENT BY MANUAL COUNT86 % NormalProMedica Solorzano HospitalComment on above:Result Comment: This is an appended report. These results have been appended to a previously preliminary verified report.Performed By: #### CPK #### [facility] ([facility]) [address] [place] [address] VIRCELLAVISION RBC MORPHOLOGYNormalNormalProMedica Solorzano HospitalComment on above:Result Comment: This is an appended report. These results have been appended to a previously preliminary verified report.Performed By: #### CPK #### [facility] ([facility]) [address] [place] [address] VIRCELLAVISION VACUOLATED NEUTROPHILS1+NormalProMedica Solorzano HospitalComment on above:Result Comment: This is an appended report. These results have been appended to a previously preliminary verified report.Performed By: #### CPK #### [facility] ([facility]) [address] [place] [address] VIRErythrocyte distribution width (RBC) [Ratio]15.8 %High 11.5-15ProMedica [place] HospitalComment on above:Performed By: #### CPK #### [facility] ([facility]) [address] [place] [address] VIRHematocrit (Bld) [Volume fraction]34.4 %Dqs86-94WzeWhfzhe [place] HospitalComment on above:Performed By: #### CPK #### [facility] ([facility]) [address] [place] [address] VIRHemoglobin (Bld) [Mass/Vol]11.1 g/dLLow11.7-15.5ProMedica [place] HospitalComment on above:Performed By: #### CPK #### [facility] ([facility]) [address] [place] [address] VIRMCH (RBC) [Entitic mass]26.7 fvRxa29-73HktFkdjoe [place] HospitalComment on above:Performed By: #### CPK #### [facility] ([facility]) [address] [place] [address] VIRMCHC (RBC) [Mass/Vol]32.3 g/lAJjotha95-65MjeLsrxtb [place] HospitalComment on above:Performed By: #### CPK #### [facility] ([facility]) [address] [place] [address] VIRMCV (RBC) [Entitic vol]83 pFPrcunu24-279HvnAlhfgz [place] HospitalComment on above:Performed By: #### CPK #### [facility] ([facility]) [address] [place] [address] VIRPlatelet mean volume (Bld) [Entitic vol]10.5 fLNormal7-12 [facility] HospitalComment on above:Performed By: #### CPK #### [facility] ([facility]) [address] [place] [address] VIRPlatelets (Bld) [#/Vol]120 10*3/aZBbq583-359AktWrgqdvFayette County Memorial HospitalComment on above:Performed By: #### JACINTAK #### [facility] ([facility]) [address] [place] [address] VIRRBC COUNT4.16 X10E12/LNormal3.8-5.2PUniversity Hospitals [facility] Comment on above:Performed By: #### TON #### [facility] ([facility]) [address] [place] [address] VIRWBC (Bld) [#/Vol]23.8 10*3/uLHigh4-11St. [facility] HospitalComment on above:Performed By: #### JACINTAK #### [facility] ([facility]) [address] [place] [address] VIRCBC auto differentialon 57-42-5770Cmsrbijxeryk cell count method Nom (Bld)CELLAVISION DIFFERENTIALRegency Hospital ToledoErythrocyte distribution width (RBC) [Ratio]15.8 %High11.5 - 15 %[facility] Hematocrit (Bld) [Volume fraction]34.4 %Low35 - 47 %[facility] Hemoglobin (Bld) [Mass/Vol]11.1 g/dLLow11.7 - 15.5 g/dLRegency Hospital [place] Interpretation and review of laboratory resultsAbnormalRegency Hospital [place] Lymphocytes (Bld) [#/Vol]0.7 10*3/uLLow1.0 - 3.5 10*3/uLRegency Hospital [place] MCH (RBC) [Entitic mass]26.7 pgLow27 - 34 [facility] HospitalMCHC (RBC) [Mass/Vol]32.3 g/dL32 - 36 g/dLRegency Hospital ToledoMCV (RBC) [Entitic vol]83 fL80 - 100 [facility] WestMonocytes (Bld) [#/Vol]2.5 10*3/uLHigh0.0 - 0.9 10*3/uLRegency Hospital ToledoMonocytes/100 WBC (Bld)11 %[facility] SystemMyelocytes/100 WBC (Bld)1 %[facility] SystemNeutrophils (Bld) [#/Vol]20.4 10*3/uLHigh1.5 - 6.6 10*3/uLMercy Health Fairfield Hospital System Neutrophils.vacuolated LM Ql (Bld)1+ProMedic Health SystemNeutrophils/100 WBC (Bld)86 %[facility] Hospitala Health SystemPlatelet mean volume (Bld) [Entitic vol]10.5 fL7 - 12 fLPWright-Patterson Medical Center SystemPlatelets (Bld) [#/Vol]120 10*3/uLLowProRmc [facility]fellow [facility] Health SystemRBC (Bld) [#/Vol]4.16 10*6/uLProRmc [facility]fellow [facility] Hospital Health SystemRBC (Bld) [#/Vol]NormalMercy Health Fairfield Hospital SystemVariant lymphocytes/100 WBC (Bld)3 % [facility] SystemWBC LM Ql (Sput)23.8HighAurora Medical Center in Summit SystemIONIZED CALCIUMon 65-85-7522RDVKBOY CALCIUM - ICAN4.8 mg/dLNormal 4.5-5.3PUniversity Hospitals Elyria Medical CenterComment on above:Performed By: #### CPK #### [facility] ([facility]) [address] [place] [address] VIRIONIZED MAGNESIUMon 13-62-5461Cetimvcnp [Moles/Vol]0.56 mmol/LNormal0.45-0.74St. [facility]'s HospitalComment on above:Performed By: #### UNAR #### [facility] ([facility]) [address] [place] [address] VIRIonized calciumon 67-42-6658Nycklfn.ionized ISE [Moles/Vol] 4.8 mg/dL4.5 - 5.3 mg/dLMercy Health Fairfield Hospital SystemInterpretation and review of laboratory resultsNormalKeenan Private Hospital Health SystemIonized magnesiumon [id number] and review of laboratory resultsNormal [facility] SystemMagnesium Ionized ISE (Bld) [Moles/Vol]0.56 mmol/L0.45 - 0.74 mmol/LProMedica Forest Health Medical CenterProCrystal Clinic Orthopedic Center SystemMAGNESIUMon 09-25-2024 Magnesium [Mass/Vol]1.8 mg/dLNormal1.8-2.6St. Rita's HospitalComment on above:Performed By: #### UNAR #### [facility] ([facility]) [address] [place] [address] VIRMagnesiumon 81-84-2301Yrcomyrbshvemr and review of laboratory resultsNormalMercy Health Fairfield Hospital SystemMagnesium [Mass/Vol]1.8 mg/dL1.8 - 2.6 mg/dLProCrystal Clinic Orthopedic Center SystemNo Panel Informationon 47-08-8421XzdIzcnfv Health SystemPHOSPHORUSon 65-37-0513Wyewrudsl [Mass/Vol]2.3 mg/dLLow2.4-4.9 [facility] HospitalComment on above:Performed By: #### UNAR #### [facility] ([facility]) [address] [place] [address] VIRPhosphoruson 96-80-8277Qtfcmixgqfqald and review of laboratory resultsAbnormalSt. Rita's Hospital Health SystemPhosphate [Mass/Vol]2.3 mg/dL Low2.4 - 4.9 mg/dLRegency Hospital ToledoBacteria identified Aer cx Nom (Bld)on 67-47-9021Lmuiecnt identified Aer cx Nom (Unsp spec)NO GROWTH 5 DAYSShriners Hospitals for Children - PhiladelphiaCBC WITH AUTO DIFFERENTIALon 09-24-2024 BASOPHILS ABSOLUTE COUNT (10*3/UL) BY AUTOMATED COUNT0.0 10*3/uLNoSamaritan North Health CenterComment on above:Result Comment: This is an appended report. These results have been appended to a previously preliminary verified report. Performed By: #### CPK #### [facility] ([facility]) [address] [place] [address] VIRBASOPHILS RELATIVE PERCENT BY AUTOMATED COUNT0.1 %Normal St[facility] Rita's HospitalComcorewell health ludington hospital on above:Result Comment: This is an appended report. These results have been appended to a previously preliminary verified report.Performed By: #### CPK #### [facility] ([facility]) [address] [place] [address] VIRCELLAVISION DIFFERENTIAL TYPEAUTOMATED DIFFERENTIALNormal St. Rita's HospitalComcorewell health ludington hospital on above:Result Comment: This is an appended report. These results have been appended to a previously preliminary verified report.Performed By: #### CPK #### [facility] ([facility]) [address] [place] [address] VIREosinophils (Bld) [#/Vol]0.0 10*3/uLNormalProWyandot Memorial Hospitalca [facility] Marietta Memorial HospitalComment on above:Result Comment: This is an appended report. These results have been appended to a previously preliminary verified report.Performed By: #### CPK #### [facility] ([facility]) [address] [place] [address] VIREOSINOPHILS RELATIVE PERCENT BY AUTOMATED COUNT0.0 %Normal St[facility] Rita's HospitalComcorewell health ludington hospital on above:Result Comment: This is an appended report. These results have been appended to a previously preliminary verified report.Performed By: #### CPK #### [facility] ([facility]) [address] [place] [address] VIRErythrocyte distribution width (RBC) [Ratio]15.3 %High 11.5-15ProWyandot Memorial Hospitalca Bonifay HospitalComment on above:Performed By: #### CPK #### [facility] ([facility]) [address] [place] [address] VIRHematocrit (Bld) [Volume fraction]34.8 %Cco54-19JtlEddwoz [facility]ay HospitalComment on above:Performed By: #### CPK #### [facility] ([facility]) [address] [place] [address] VIRHemoglobin (Bld) [Mass/Vol]11.2 g/dLLow11.7-15.5ProMedica [place]ifay HospitalComment on above:Performed By: #### CPK #### [facility] ([facility]) [address] [place] [address] VIRLYMPHOCYTES ABSOLUTE COUNT (10*3/UL) BY AUTOMATED COUNT0.7 10*3/uLNormalProMedica Bonifay HospitalComment on above:Result Comment: This is an appended report. These results have been appended to a previously preliminary verified report.Performed By: #### CPK #### [facility] ([facility]) [address] [place] [address] VIRLYMPHOCYTES RELATIVE PERCENT BY AUTOMATED COUNT2.8 %Normal ProMedica [place]ifay HospitalComment on above:Result Comment: This is an appended report. These results have been appended to a previously preliminary verified report.Performed By: #### CPK #### [facility] ([facility]) [address] [place] [address] VIRMCH (RBC) [Entitic mass]26.5 jaCjk43-76DmbKhczyh [facility] HospitalComment on above:Performed By: #### CPK #### [facility] ([facility]) [address] [place] [address] VIRMCHC (RBC) [Mass/Vol]32.1 g/pJTisbix72-32YssHxazdb [facility] HospitalComment on above:Performed By: #### CPK #### [facility] ([facility]) [address] [place] [address] VIRMCV (RBC) [Entitic vol]82 pBOdopxf62-023HykLcmlvd [facility] HospitalComment on above:Performed By: #### CPK #### [facility] ([facility]) [address] [place] [address] VIRMONOCYTES ABSOLUTE COUNT (10*3/UL) BY AUTOMATED COUNT2.8 10*3/uLNormalProMedica Bonifay HospitalComment on above:Result Comment: This is an appended report. These results have been appended to a previously preliminary verified report.Performed By: #### CPK #### [facility] ([facility]) [address] [place] [address] VIRMONOCYTES RELATIVE PERCENT BY AUTOMATED COUNT10.4 %Normal [facility] HospitalComment on above:Result Comment: This is an appended report. These results have been appended to a previously preliminary verified report.Performed By: #### CPK #### [facility] ([facility]) [address] [place] [address] VIRNEUTROPHILS ABSOLUTE COUNT BY AUTOMATED COUNT22.9 10*3/uL NormalProMedica Bonifay HospitalComment on above:Result Comment: This is an appended report. These results have been appended to a previously preliminary verified report.Performed By: #### CPK #### [facility] ([facility]) [address] [place] [address] VIRNEUTROPHILS RELATIVE PERCENT BY AUTOMATED COUNT86.7 %Normal [facility] HospitalComment on above:Result Comment: This is an appended report. These results have been appended to a previously preliminary verified report.Performed By: #### CPK #### [facility] ([facility]) [address] [place] [address] VIRPlatelet mean volume (Bld) [Entitic vol]9.5 fLNormal7-12 [facility] HospitalComment on above:Performed By: #### CPK #### [facility] ([facility]) [address] [place] [address] VIRPlatelets (Bld) [#/Vol]155 10*3/vYQqkzkm783-028DpwCdmcix [facility] HospitalComment on above:Performed By: #### CPK #### [facility] ([facility]) [address] [place] [address] VIRRBC COUNT4.22 X10E12/LNormal3.8-5.2[facility] Comment on above:Performed By: #### CPK #### [facility] ([facility]) [address] [place] [address] VIRWBC (Bld) [#/Vol]26.5 10*3/uLHigh4-11St. Rita's HospitalComment on above:Performed By: #### TON #### [facility] ([facility]) [address] [place] [address] VIRCBC auto differentialon 80-25-6185Qrbzidtrt (Bld) [#/Vol]0 10*3/uLRegency Hospital ToledoBasophils/100 WBC (Bld)0.1 %[facility] Hospital ToledoDifferential cell count method Nom (Bld)AUTOMATED DIFFERENTIALRegency Hospital ToledoEosinophils (Bld) [#/Vol]0 10*3/uLRegency Hospital Toledo Eosinophils/100 WBC (Bld)0 %Regency Hospital ToledoErythrocyte distribution width (RBC) [Ratio]15.3 %High11.5 - 15 %Reg[facility] Hospital ToledoHematocrit (Bld) [Volume fraction]34.8 %Low35 - 47 %[facility] Hospital ToledoHemoglobin (Bld) [Mass/Vol]11.2 g/dLLow11.7 - 15.5 g/dLRegency Hospital ToledoInterpretation and review of laboratory resultsAbnormalRegency Hospital ToledoLymphocytes (Bld) [#/Vol]0.7 10*3/uLRegency Hospital ToledoLymphocytes/100 WBC (Bld)2.8 %[facility] Hospital ToledoMCH (RBC) [Entitic mass]26.5 pgLow27 - [address] Elizabeth Boardman HospitalMCHC (RBC) [Mass/Vol]32.1 g/dL32 - 36 g/dLRegency Hospital ToledoMCV (RBC) [Entitic vol]82 fL80 - [address] Elizabeth Boardman HospitalMonocytes (Bld) [#/Vol]2.8 10*3/uLRegency Hospital ToledoMonocytes/100 WBC (Bld)10.4 %[facility] Hospital ToledoNeutrophils (Bld) [#/Vol]22.9 10*3/uLMercy Health Fairfield Hospital System Neutrophils/100 WBC (Bld)86.7 %ProMedica Health SystemPlatelet mean volume (Bld) [Entitic vol]9.5 fL7 - 12 fLPWright-Patterson Medical Center SystemPlatelets (Bld) [#/Vol]155 10*3/[facility] SystemRBC (Bld) [#/Vol]4.22 10*6/[facility] City HospitalWBC LM Ql (Sput)26.5HighShriners Hospitals for Children - Philadelphia COMPREHENSIVE METABOLIC PANELon 21-57-2465Jzhnumq [Mass/Vol]3.3 g/dLNormal 3.2-5.3ProMedAdena Regional Medical Center HospitalComment on above:Performed By: #### CPK #### [facility] ([facility]) [address] [place] [address] VIRALP [Catalytic activity/Vol]61 U/MLpnrhh31-694DjuZchihi [place] HospitalComment on above:Performed By: #### CPK #### [facility] ([facility]) [address] [place] [address] VIRALT [Catalytic activity/Vol]33 U/LHigh<=31ProMedAdena Regional Medical Center HospitalComment on above:Performed By: #### CPK #### [facility] ([facility]) [address] [place] [address] VIRAnion gap [Moles/Vol]10 mmol/LNormal5-15ProJoint Township District Memorial Hospital HospitalComment on above:Performed By: #### CPK #### [facility] ([facility]) [address] [place] [address] VIRAST [Catalytic activity/Vol]19 U/LNormal<=41ProMedica [place] HospitalComment on above:Performed By: #### CPK #### [facility] ([facility]) [address] [place] [address] VIRBilirubin [Mass/Vol]0.4 mg/dLNormal0.3-1.2PCommunity Regional Medical Center HospitalComment on above:Performed By: #### CPK #### [facility] ([facility]) [address] [place] [address] VIRCalcium [Mass/Vol]8.7 mg/dLNormal8.5-10.5PUniversity Hospitals Elyria Medical CenterComment on above:Performed By: #### CPK #### [facility] ([facility]) [address] [place] [address] VIRChloride [Moles/Vol]108 mmol/RAclvsa58-258EbvHaguve [place] HospitalComment on above:Performed By: #### CPK #### [facility] ([facility]) [address] [place] [address] VIRCO2 [Moles/Vol]23 mmol/GLqwtly97-88HomOzoprd [facility] Comment on above:Performed By: #### CPK #### [facility] ([facility]) [address] [place] [address] VIRCreatinine [Mass/Vol]1.06 mg/dLHigh0.40-1.00ProFayette County Memorial HospitalComment on above:Result Comment: METHOD TRACEABLE TO IDMS STANDARD Performed By: #### CPK #### [facility] ([facility]) [address] [place] [address] VIRGFR/1.73 sq M.predicted among non-blacks MDRD (S/P/Bld) [Vol rate/Area]62 mL/min/{1.73_m2}Normal>=60ProFayette County Memorial HospitalComment on above:Result Comment: Reported eGFR is based on the CKD-EPI 2020 equation that does not use a race coefficient.Performed By: #### CPK #### [facility] ([facility]) [address] [place] [address] VIRGlucose [Mass/Vol]120 mg/kBXkgv55-39DrwHubaknFayette County Memorial HospitalComment on above:Performed By: #### CPK #### [facility] ([facility]) [address] [place] [address] VIRPotassium [Moles/Vol]4.3 mmol/LNormal3.5-5.0ProJoint Township District Memorial Hospital HospitalComment on above:Performed By: #### CPK #### [facility] ([facility]) [address] [place] [address] VIRProtein [Mass/Vol]6.3 g/dLNormal6.0-8.0ProJoint Township District Memorial Hospital HospitalComment on above:Performed By: #### CPK #### [facility] ([facility]) [address] [place] [address] VIRSodium [Moles/Vol]141 mmol/CIfonac903-094CdfQyzumb [place] HospitalComment on above:Performed By: #### CPK #### [facility] ([facility]) [address] [place] [address] VIRUrea nitrogen [Mass/Vol]27 mg/dLHigh5-23ProJoint Township District Memorial Hospital HospitalComment on above:Performed By: #### CPK #### [facility] ([facility]) [address] [place] [address] VIRCREATININE, SERUMon 79-46-9992GRJHCLQKZU, SERUMCRT CREATININE, SERUM CancelledNormalProJoint Township District Memorial Hospital HospitalComment on above:Order Comment: Spoke to Regina Taylor RN. BMP since resulted making duplicate order, add-on is not necessary.Comprehensive metabolic panelOrdered By: Paxton Navarro on 59-22-9069Kkvmjyn [Mass/Vol]3.3 g/dL3.2 - 5.3 g/dLProMedica Health SystemALP [Catalytic activity/Vol]61 U/L39 - 130 U/LProMedica Health SystemALT No additional P-5'-P [Catalytic activity/Vol]33 U/LHighNINF - 31 U/LProMedica Health SystemAnion gap [Moles/Vol]10 mmol/L5 - 15 mmol/LProMedica Health System AST [Catalytic activity/Vol]19 U/LNINF - 41 U/LProMedica Health SystemBilirubin [Mass/Vol]0.4 mg/dL0.3 - 1.2 mg/dLProMedica Health SystemCalcium [Mass/Vol]8.7 mg/dL8.5 - 10.5 mg/dLProWyandot Memorial Hospitalca Health SystemChloride [Moles/Vol]108 mmol/L98 - 109 mmol/LProMedica Health SystemCO2 [Moles/Vol]23 mmol/L22 - 32 mmol/LProMedica Health SystemCreatinine [Mass/Vol]1.06 mg/dLHigh0.40 - 1.00 mg/dLProCrystal Clinic Orthopedic Center SystemEGFR Non-Race Fhtbmaxkn02- PINFProMedNationwide Children's Hospital SystemGlucose [Mass/Vol]120 mg/iJIaiu22 - 99 mg/dLMercy Health Fairfield Hospital SystemInterpretation and review of laboratory resultsAbnormalProCrystal Clinic Orthopedic Center SystemPotassium [Moles/Vol] 4.3 mmol/L3.5 - 5.0 mmol/LProMedica Health SystemProtein [Mass/Vol]6.3 g/dL6.0 - 8.0 g/dLProRmc [facility] Health SystemSodium [Moles/Vol]141 mmol/L134 - 146 mmol/L [facility] SystemUrea nitrogen [Mass/Vol]27 mg/dLHigh5 - 23 mg/dLProCrystal Clinic Orthopedic Center SystemProCrystal Clinic [facility] SystemFL SWALLOW MOTILITY FUNCTIONon 40-82-5711EC SWALLOW MOTILITY FUNCTIONFL SWALLOW MOTILITY FUNCTION FL SWALLOW MOTILITY FUNCTION [...] by Remy Christian MD on 09/24/2024 1:36 PMNormalProMedica [place] HospitalIONIZED CALCIUMon 39-95-5807CJKWUTK CALCIUM - ICAN4.9 mg/dLNormal4.5-5.3 [facility] HospitalComment on above:Performed By: #### CPK #### [facility] ([facility]) [address] [place] [address] VIRIonized calciumon 18-96-0656Sjtejfd.ionized ISE [Moles/Vol] 4.9 mg/dL4.5 - 5.3 mg/dLRegency Hospital ToledoInterpretation and review of laboratory resultsNormalShriners Hospitals for Children - PhiladelphiaMAGNESIUM on 91-68-3915Sbumjehbf [Mass/Vol]2.3 mg/dLNormal1.8-2.6[facility] Comment on above:Performed By: #### CPK #### [facility] ([facility]) [address] [place] [address] VIRMagnesiumon 33-33-2382Tpclcjmdv [Mass/Vol]2.3 mg/dL1.8 - 2.6 mg/dLRegency Hospital ToledoNo Panel Informationon 49-20-6191Vkdtvefbeiuwvh and review of laboratory resultsNormReading HospitalPHOSPHORUSon 57-57-2546Rvhzslycq [Mass/Vol]3.5 mg/dLNormal2.4-4.9St[facility] HospitalComment on above:Performed By: #### CPK #### [facility] ([facility]) [address] [place] [address] VIRPhosphoruson 35-14-6634Sxuuetfba [Mass/Vol]3.5 mg/dL2.4 - 4.9 mg/dLCleveland Clinic Medina Hospital videography Hypopharynx and Esophagus Viewson 70-14-4577NDCHSUULXOLfmAjwjoy Health SystemRadiology Study observation (narrative)[facility] videography Hypopharynx and Esophagus Views Ordered By: Remy Christian on 45-65-4056EzxFsvxabRegency Hospital Toledo Work Phone: ABO Rh Repeaton [phone]wn Community Hospital Rh Nom (Bld)PositiveShriners Hospitals for Children - PhiladelphiaABOORegency Hospital ToledoRh Nom (Bld)PositiveShriners Hospitals for Children - Philadelphia BASIC METABOLIC PANELon 97-60-2718Tjbyy gap [Moles/Vol]8 mmol/LNormal5-15 [facility] HospitalComment on above:Performed By: #### [email or web address] #### [facility] ([facility]) [address] [place] [address] VIRCalcium [Mass/Vol]9.0 mg/dLNormal8.5-10.5PUniversity Hospitals Elyria Medical CenterComment on above:Performed By: #### [email or web address] #### [facility] ([facility]) [address] [place] [address] VIRChloride [Moles/Vol]111 mmol/JHpgc28-610LezGmsysfSt. Rita's HospitalComment on above:Performed By: #### [email or web address] #### [facility] ([facility]) [address] [place] [address] VIRCO2 [Moles/Vol]24 mmol/VBqmbej38-32LunNiwbmhUniversity Hospitals Elyria Medical Center Comment on above:Performed By: #### [email or web address] #### [facility] ([facility]) [address] [place] [address] VIRCreatinine [Mass/Vol]0.91 mg/dLNormal0.40-1.00St. [facility]'s HospitalComment on above:Result Comment: METHOD TRACEABLE TO IDCA STANDARDPerformed By: #### [email or web address] #### [facility] ([facility]) [address] [place] [address] VIRGFR/1.73 sq M.predicted among non-blacks MDRD (S/P/Bld) [Vol rate/Area]74 mL/min/{1.73_m2}Normal>=60St. [facility]'s HospitalComment on above:Result Comment: Reported eGFR is based on the CKD-EPI 2020 equation that does not use a race coefficient.Performed By: #### [email or web address] #### [facility] ([facility]) [address] [place] [address] VIRGlucose [Mass/Vol]106 mg/qDNqxy90-04XawFmpsvk [place] HospitalComment on above:Performed By: #### [email or web address] #### [facility] ([facility]) [address] [place] [address] VIRPotassium [Moles/Vol]4.4 mmol/LNormal3.5-5.0ProJoint Township District Memorial Hospital HospitalComment on above:Performed By: #### [email or web address] #### [facility] ([facility]) [address] [place] [address] VIRSodium [Moles/Vol]143 mmol/TOgshha289-826ElpRgsxxq [place] HospitalComment on above:Performed By: #### [email or web address] #### [facility] ([facility]) [address] [place] [address] VIRUrea nitrogen [Mass/Vol]25 mg/dLHigh5-23ProJoint Township District Memorial Hospital HospitalComment on above:Performed By: #### [email or web address] #### [facility] ([facility]) [address] [place] [address] VIRBEDSIDE GLUCOSEon 02-80-5225Crbclll [Mass/Vol]153 mg/dLHigh 65-99ProJoint Township District Memorial Hospital HospitalComment on above:Performed By: #### [email or web address] #### [facility] ([facility]) [address] [place] [address] VIRBasic Metabolic PanelOrdered By: Prema Beach on 57-45-2949Mbdpp gap [Moles/Vol]8 mmol/L5 - 15 mmol/LProMedica Health System Calcium [Mass/Vol]9 mg/dL8.5 - 10.5 mg/dLProMedica Health SystemChloride [Moles/Vol]111 mmol/LHigh98 - 109 mmol/LProMedica Health SystemCO2 [Moles/Vol]24 mmol/L22 - 32 mmol/LProMedica Health SystemCreatinine [Mass/Vol]0.91 mg/dL0.40 - 1.00 mg/dLRegency Hospital ToledoEGFR Non-Race Cjbeembna74- PINMissouri Baptist Medical CenterGlucose [Mass/Vol]106 mg/nKRvzo02 - 99 mg/dLRegency Hospital [place]edo Interpretation and review of laboratory resultsAbStony Brook University Hospital Potassium [Moles/Vol]4.4 mmol/L3.5 - 5.0 mmol/[facility] Claytonodium [Moles/Vol]143 mmol/L134 - 146 mmol/[facility] County HospitalUrea nitrogen [Mass/Vol]25 mg/dLHigh5 - 23 mg/dLShriners Hospitals for Children - Philadelphia Bedside Glucose *Place/Obtain serum glucose if >500 per glucometer.on 09-23-2024 Glucose [Mass/Vol]153 mg/nUOjdy06 - 99 mg/dLRegency Hospital [place]edo Interpretation and review of laboratory resultsAbTomah Memorial HospitalCBC WITH AUTO DIFFERENTIALon 86-44-2477UFDKKGXBJ ABSOLUTE COUNT (10*3/UL) BY AUTOMATED COUNT0.1 10*3/uLFulton County Health Center Comment on above:Performed By: #### [email or web address] #### [facility] ([facility]) [address] [place] [address] VIRBASOPHILS RELATIVE PERCENT BY AUTOMATED COUNT0.4 %Normal St[facility] HospitalComment on above:Performed By: #### [email or web address] #### [facility] ([facility]) [address] [place] [address] VIRCELLAVISION DIFFERENTIAL TYPEAUTOMATED DIFFERENTIALNoal St. Rita's HospitalComment on above:Performed By: #### [email or web address] #### [facility] ([facility]) [address] [place] [address] VIREosinophils (Bld) [#/Vol]0.0 10*3/uLFulton County Health CenterComment on above:Performed By: #### [email or web address] #### [facility] ([facility]) [address] [place] [address] VIREOSINOPHILS RELATIVE PERCENT BY AUTOMATED COUNT0.1 %Normal ProMspringhill medical centera [place] HospitalComment on above:Performed By: #### [email or web address] #### [facility] ([facility]) [address] [place] [address] VIRErythrocyte distribution width (RBC) [Ratio]15.5 %High 11.5-15ProWyandot Memorial Hospitalca [place] HospitalComment on above:Performed By: #### [email or web address] #### [facility] ([facility]) [address] [place] [address] VIRHematocrit (Bld) [Volume fraction]37.3 %Sgskxj20-26MnjTntbib [place] HospitalComment on above:Performed By: #### [email or web address] #### [facility] ([facility]) [address] [place] [address] VIRHemoglobin (Bld) [Mass/Vol]12.3 g/qQOprbfm79.7-15.5ProMedica [place] HospitalComment on above:Performed By: #### [email or web address] #### [facility] ([facility]) [address] [place] [address] VIRLYMPHOCYTES ABSOLUTE COUNT (10*3/UL) BY AUTOMATED COUNT1.1 10*3/uLNormalCleveland Clinic Foundation HospitalComment on above:Performed By: #### [email or web address] #### [facility] ([facility]) [address] [place] [address] VIRLYMPHOCYTES RELATIVE PERCENT BY AUTOMATED COUNT7.0 %Normal ProM[facility] centera Bonifay HospitalComment on above:Performed By: #### [email or web address] #### [facility] ([facility]) [address] [place] [address] VIRMCH (RBC) [Entitic mass]26.9 [id number] Bonifay HospitalComment on above:Performed By: #### [email or web address] #### [facility] ([facility]) [address] [place] [address] VIRMCHC (RBC) [Mass/Vol]32.9 g/[id number] Solorzano HospitalComment on above:Performed By: #### [email or web address] #### [facility] ([facility]) [address] [place] [address] VIRMCV (RBC) [Entitic vol]82 eKBloiuz35-546VvcFwhvgv Solorzano HospitalComment on above:Performed By: #### [email or web address] #### [facility] ([facility]) [address] [place] [address] VIRMONOCYTES ABSOLUTE COUNT (10*3/UL) BY AUTOMATED COUNT1.0 10*3/uLNormalProMedica Solorzano HospitalComment on above:Performed By: #### [email or web address] #### [facility] ([facility]) [address] [place] [address] VIRMONOCYTES RELATIVE PERCENT BY AUTOMATED COUNT6.9 %Normal ProMspringhill medical centera Bonifay HospitalComment on above:Performed By: #### [email or web address] #### [facility] ([facility]) [address] [place] [address] VIRNEUTROPHILS ABSOLUTE COUNT BY AUTOMATED COUNT12.9 10*3/uL NormalProMedica Solorzano HospitalComment on above:Performed By: #### [email or web address] #### [facility] ([facility]) [address] [place] [address] VIRNEUTROPHILS RELATIVE PERCENT BY AUTOMATED COUNT85.6 %Normal ProMspringhill medical centera Bonifay HospitalComment on above:Performed By: #### [email or web address] #### [facility] ([facility]) [address] [place] [address] VIRPlatelet mean volume (Bld) [Entitic vol]9.5 fLNormal7-12 ProMedica Solorzano HospitalComment on above:Performed By: #### [email or web address] #### [facility] ([facility]) [address] [place] [address] VIRPlatelets (Bld) [#/Vol]167 10*3/oMTagfhy571-236BuuVtysiw Solorzano HospitalComment on above:Performed By: #### [email or web address] #### [facility] ([facility]) [address] [place] [address] VIRRBC COUNT4.57 X10E12/LNormal3.8-5.2PUniversity Hospitals [facility] Comment on above:Performed By: #### [email or web address] #### [facility] ([facility]) [address] [place] [address] VIRWBC (Bld) [#/Vol]15.1 10*3/uLHigh4-11St. Rita's HospitalComment on above:Performed By: #### [email or web address] #### [facility] ([facility]) [address] [place] [address] VIRCBC auto differentialon 39-46-1372Lhqqvuham (Bld) [#/Vol]0.1 10*3/[facility] HospitalBasophils/100 WBC (Bld)0.4 %[facility] ToledoDifferential cell count method Nom (Bld)AUTOMATED DIFFERENTIALRegency Hospital ToledoEosinophils (Bld) [#/Vol]0 10*3/[facility] Eosinophils/100 WBC (Bld)0.1 %[facility] Hospital ToledoErythrocyte distribution width (RBC) [Ratio]15.5 %High11.5 - 15 %[facility] ToledoHematocrit (Bld) [Volume fraction]37.3 %35 - 47 %[facility] ToledoHemoglobin (Bld) [Mass/Vol]12.3 g/dL11.7 - 15.5 g/dLRegency Hospital ToledoInterpretation and review of laboratory resultsAbnoNovant Health Medical Park HospitalLymphocytes (Bld) [#/Vol]1.1 10*3/[facility] HospitalLymphocytes/100 WBC (Bld)7 %[facility] Hospital ToledoMCH (RBC) [Entitic mass]26.9 pgLow27 - 34 [facility] MCHC (RBC) [Mass/Vol]32.9 g/dL32 - 36 g/dLRegency Hospital ToledoMCV (RBC) [Entitic vol]82 fL80 - 100 [facility] WestMonocytes (Bld) [#/Vol]1 10*3/[facility] HospitalMonocytes/100 WBC (Bld)6.9 %[facility] Hospital ToledoNeutrophils (Bld) [#/Vol]12.9 10*3/[facility] Neutrophils/100 WBC (Bld)85.6 %[facility] Hospital ToledoPlatelet mean volume (Bld) [Entitic vol]9.5 fL7 - 12 [facility] WestPlatelets (Bld) [#/Vol]167 10*3/[facility] HospitalRBC (Bld) [#/Vol]4.57 10*6/[facility] HospitalWBC LM Ql (Sput)15.1HGeisinger Wyoming Valley Medical CenterCT BRAIN WO CONTon [id number] BRAIN WO CONTCT BRAIN WO CONT STUDY: CT BRAIN WO [...] Finalized by Hebert Farrar on 09/23/2024 7:38 PMNormalCleveland Clinic Foundation HospitalCT Head WO contraston [id number] Health System Radiology Study observation (narrative)[facility] SystemCT Head WO contrastOrdered By: Hebert Farrar on 17-08-6686PktGrulycRegency Hospital Toledo Work Phone: Clinical Pathology ReviewOrdered By: Jeremiah Altman on 63-95-7891Nlfr [facility] Work Phone: pathology report final diagnosis Narrative l1mcdOKsEISutEJlSTAcVXommpMwAGKbfYPjH5ItpwjyZWswER4iLJ0qpLxgbOLhnZMuRXBfOfYpl4sj a012yDJbr7exNJMHXOld VPERCOo9vTbwM63bm4D8MrcrZ58vbNFcJQM8KAYoKJPvdNRzYGNtHMF6DXNduFObH7voOXWxPR9vvcyd BGarTEgzGLKfuZF7DUMk yZXrX3YxDPCxIIiyKSQdvok5XxUcFf2jjATroPnqVThcYOReICRzUXgoJCBlOxOiOBNjwTbgGL15DXXs fiCjkU6sWoW3SWTnWOpk n15eKATxF19ukNXuKZUicX95kp4hsBhtiEqdkoYlb9CpOoKygCuobeTogkJedZA9xF7dAaqlPEXaIXxy i9YsSuVawS4nlIifSIrkoDqbnZ2gpfCqu6OhhQ3uPDU4sDAhkHqcl4MluuYcV2VdovIhIknuSQL0 [facility] Work Phone: [place] [employer] [facility] Work Phone: ECG 12 leadon 15-97-2328QKXRVDNCRTMHSUUwzTdrevy Health SystemIONIZED CALCIUMon 81-93-6226GCFVURZ CALCIUM - ICAN4.8 mg/dLNormal4.5-5.3 [facility] HospitalComment on above:Performed By: #### [email or web address] #### [facility] ([facility]) [address] [place] [address] VIRIonized calciumon 95-51-0516Rfuriin.ionized ISE [Moles/Vol] 4.8 mg/dL4.5 - 5.3 mg/dLRegency Hospital ToledoInterpretation and review of laboratory resultsNoMeadville Medical CenterMAGNESIUM on 63-45-6159Huuzababp [Mass/Vol]1.8 mg/dLNormal1.8-2.6[facility] Comment on above:Performed By: #### [email or web address] #### [facility] ([facility]) [address] [place] [address] VIRMagnesiumon 82-63-9877Ydrtxxzas [Mass/Vol]1.8 mg/dL1.8 - 2.6 mg/dLRegency Hospital ToledoNo Panel Informationon 67-67-1226Yxlmnvlqgnapbg and review of laboratory resultsNoMeadville Medical CenterPHOSPHORUSon 73-02-5278Atighblfm [Mass/Vol]3.0 mg/dLNormal2.4-4.9St. Rita's HospitalComment on above:Result Comment: R-Specimen slightly hemolyzed, results increasedPerformed By: #### [email or web address] #### [facility] ([facility]) [address] [place] [address] VIRPhosphoruson 63-04-3848Htgdykezn [Mass/Vol]3 mg/dL2.4 - 4.9 mg/dLRegency Hospital ToledoProtein electrophoresis, serumon 64-34-5282Xpldnjk [Mass/Vol]2.8 g/dLLow3.4 - 5.3 g/dLRegency Hospital ToledoAlpha 1 globulin Elph [Mass/Vol]0.6 g/dLHigh0.1 - 0.4 g/dLRegency Hospital ToledoAlpha 2 globulin Elph [Mass/Vol]1.2 g/dLHigh0.4 - 1.1 g/dLRegency Hospital ToledoBeta globulin Elph [Mass/Vol]1 g/dL0.5 - 1.2 g/dLRegency Hospital ToledoGamma globulin Elph (Body fld) [Mass/Vol]0.9 g/dL0.5 - 1.6 g/dLRegency Hospital ToledoInterpretation and review of laboratory resultsAbStony Brook University HospitalPathologist interpretation (Bld) [Interp]See Pathology ReportProSumma Health Akron CampusProtein [Mass/Vol]6.4 g/dL6.0 - 8.0 g/dLShriners Hospitals for Children - Philadelphia REPEATED ABORHon 83-11-6786FED_EIKXCCEynnxbEjyJinptc [place] HospitalComment on above:Performed By: #### [email or web address] #### [facility] ([facility]) [address] [place] [address] VIRRH_INTEPPositiveNoSamaritan North Health CenterComment on above:Performed By: #### [email or web address] #### [facility] ([facility]) [address] [place] [address] VIRX-ray abdomen NG Tube placement 1 viewon 09-23-2024 SECTRaritan Bay Medical CenterRadiology Study observation (narrative) [facility] Hospital ToledoX-ray abdomen NG Tube placement 1 viewOrdered By: Sebastian Grayson on 90-25-4472BvqPugjouRegency Hospital Toledo Work Phone: XR ABD NG TUBE PLACEMENT 1 VIEWon 89-91-0145WL ABD NG TUBE PLACEMENT 1 VIEWXR ABD NG TUBE PLACEMENT 1 VIEW EXAM: XR ABD NG TUBE PLACEMENT 1 VIEW CLINICAL INFORMATION: new NG placed. COMPARISON: 09/20/2024 FINDINGS: The gastric tube tip is in the stomach. IMPRESSION: Gastric tube tip in stomach. Finalized by Sebastian Grayson MD on 09/23/2024 5:22 PMNormalSt. Rita's HospitalXR Chest Single viewon 30-25-1094HPOWQHRKWPGjhMzfzgfAncora Psychiatric HospitalRadiology Study observation (narrative)[facility] Hospital ToledoXR Chest Single viewOrdered By: Shen Farooq on 30-52-4436SikAlulwxRegency Hospital Toledo Work Phone: BASIC METABOLIC PANELon 52-16-1037Buoqz gap [Moles/Vol]11 mmol/LNormal5-15ProFayette County Memorial HospitalComment on above: Performed By: #### CMP #### [facility] ([facility]) [address] [place] [address] VIRCalcium [Mass/Vol]9.0 mg/dLNormal8.5-10.5PUniversity Hospitals Elyria Medical CenterComment on above:Performed By: #### CMP #### [facility] ([facility]) [address] [place] [address] VIRChloride [Moles/Vol]110 mmol/GFjcu14-316WwaAlujliFayette County Memorial HospitalComment on above:Performed By: #### CMP #### [facility] ([facility]) [address] [place] [address] VIRCO2 [Moles/Vol]23 mmol/DFaheva36-48SogIexsflUniversity Hospitals Elyria Medical Center Comment on above:Performed By: #### CMP #### [facility] ([facility]) [address] [place] [address] VIRCreatinine [Mass/Vol]1.01 mg/dLHigh0.40-1.00ProFayette County Memorial HospitalComment on above:Result Comment: METHOD TRACEABLE TO IDMS STANDARD Performed By: #### CMP #### [facility] ([facility]) [address] [place] [address] VIRGFR/1.73 sq M.predicted among non-blacks MDRD (S/P/Bld) [Vol rate/Area]65 mL/min/{1.73_m2}Normal>=60ProFayette County Memorial HospitalComment on above:Result Comment: Reported eGFR is based on the CKD-EPI 2020 equation that does not use a race coefficient.Performed By: #### CMP #### [facility] ([facility]) [address] [place] [address] VIRGlucose [Mass/Vol]129 mg/bKHupu09-60NwzDzdjksFayette County Memorial HospitalComment on above:Performed By: #### CMP #### [facility] ([facility]) [address] [place] [address] VIRPotassium [Moles/Vol]4.4 mmol/LNormal3.5-5.0ProJoint Township District Memorial Hospital HospitalComment on above:Performed By: #### CMP #### [facility] ([facility]) [address] [place] [address] VIRSodium [Moles/Vol]144 mmol/WHhgzlk066-425IajHcjxze [place] HospitalComment on above:Performed By: #### CMP #### [facility] ([facility]) [address] [place] [address] VIRUrea nitrogen [Mass/Vol]24 mg/dLHigh5-23ProJoint Township District Memorial Hospital HospitalComment on above:Performed By: #### CMP #### [facility] ([facility]) [address] [place] [address] VIRBasic Metabolic PanelOrdered By: Rosenda Hernández on 16-82-8999Rujmc gap [Moles/Vol]11 mmol/L5 - 15 mmol/LProMedica Health System Calcium [Mass/Vol]9 mg/dL8.5 - 10.5 mg/dLProCrystal Clinic Orthopedic Center SystemChloride [Moles/Vol]110 mmol/LHigh98 - 109 mmol/LProMedica Health SystemCO2 [Moles/Vol]23 mmol/L22 - 32 mmol/LProMedica Health SystemCreatinine [Mass/Vol]1.01 mg/dLHigh 0.40 - 1.00 mg/dLMercy Health Fairfield Hospital SystemEGFR Non-Race Uqrtdfqfg87- PINFPWright-Patterson Medical Center SystemGlucose [Mass/Vol]129 mg/yAEptt23 - 99 mg/dLMercy Health Fairfield Hospital SystemInterpretation and review of laboratory resultsAbnormalProSumma Health Akron CampusPotassium [Moles/Vol]4.4 mmol/L3.5 - 5.0 mmol/LProMedica Health System Sodium [Moles/Vol]144 mmol/L134 - 146 mmol/LProMedica Health SystemUrea nitrogen [Mass/Vol]24 mg/dLHigh5 - 23 mg/dLRegency Hospital ToledoProSumma Health Akron CampusCB WITH AUTO DIFFERENTIALon 60-34-4297USRLIBQBM ABSOLUTE COUNT (10*3/UL) BY AUTOMATED COUNT0.0 10*3/uLNormalSt. Rita's HospitalComment on above: Performed By: #### CMP #### [facility] ([facility]) [address] [place] [address] VIRBASOPHILS RELATIVE PERCENT BY AUTOMATED COUNT0.3 %Normal St[facility] Rita's HospitalComment on above:Performed By: #### CMP #### [facility] ([facility]) [address] [place] [address] VIRCELLAVISION DIFFERENTIAL TYPEAUTOMATED DIFFERENTIALNormal [facility] HospitalComment on above:Performed By: #### CMP #### [facility] ([facility]) [address] [place] [address] VIREosinophils (Bld) [#/Vol]0.0 10*3/uLNoSamaritan North Health CenterComment on above:Performed By: #### CMP #### [facility] ([facility]) [address] [place] [address] VIREOSINOPHILS RELATIVE PERCENT BY AUTOMATED COUNT0.0 %Normal St[facility] Rita's HospitalComment on above:Performed By: #### CMP #### [facility] ([facility]) [address] [place] [address] VIRErythrocyte distribution width (RBC) [Ratio]15.5 %High 11.5-15St. Rita's HospitalComment on above:Performed By: #### CMP #### [facility] ([facility]) [address] [place] [address] VIRHematocrit (Bld) [Volume fraction]38.0 %Sbtqlq96-64CtqPfswcd Solorzano HospitalComment on above:Performed By: #### CMP #### [facility] ([facility]) [address] [place] [address] VIRHemoglobin (Bld) [Mass/Vol]12.3 g/hJOhxiny87.7-15.5ProMedica Bonifay HospitalComment on above:Performed By: #### CMP #### [facility] ([facility]) [address] [place] [address] VIRLYMPHOCYTES ABSOLUTE COUNT (10*3/UL) BY AUTOMATED COUNT0.9 10*3/uLNormalProMedica Bonifay HospitalComment on above:Performed By: #### CMP #### [facility] ([facility]) [address] [place] [address] VIRLYMPHOCYTES RELATIVE PERCENT BY AUTOMATED COUNT6.4 %Normal ProMedica Bonifay HospitalComment on above:Performed By: #### CMP #### [facility] ([facility]) [address] [place] [address] VIRMCH (RBC) [Entitic mass]27.0 nrIgvbgp91-49JlsXkyeje Bonifay HospitalComment on above:Performed By: #### CMP #### [facility] ([facility]) [address] [place] [address] VIRMCHC (RBC) [Mass/Vol]32.5 g/tLIdiklx89-33PylKamdvl [facility] HospitalComment on above:Performed By: #### CMP #### [facility] ([facility]) [address] [place] [address] VIRMCV (RBC) [Entitic vol]83 tNHzgnwx17-532OulZvjxgj Bonifay HospitalComment on above:Performed By: #### CMP #### [facility] ([facility]) [address] [place] [address] VIRMONOCYTES ABSOLUTE COUNT (10*3/UL) BY AUTOMATED COUNT0.8 10*3/uLNormalProMedica Bonifay HospitalComment on above:Performed By: #### CMP #### [facility] ([facility]) [address] [place] [address] VIRMONOCYTES RELATIVE PERCENT BY AUTOMATED COUNT6.0 %Normal ProMCleveland Clinic [facility]ron [facility] HospitalComment on above:Performed By: #### CMP #### [facility] ([facility]) [address] [place] [address] VIRNEUTROPHILS ABSOLUTE COUNT BY AUTOMATED COUNT11.9 10*3/uL NormalProMedica Bonifay HospitalComment on above:Performed By: #### CMP #### [facility] ([facility]) [address] [place] [address] VIRNEUTROPHILS RELATIVE PERCENT BY AUTOMATED COUNT87.3 %Normal [facility] HospitalComment on above:Performed By: #### CMP #### [facility] ([facility]) [address] [place] [address] VIRPlatelet mean volume (Bld) [Entitic vol]9.6 fLNormal7-12 Pro[facility]ica Bonifay HospitalComment on above:Performed By: #### CMP #### [facility] ([facility]) [address] [place] [address] VIRPlatelets (Bld) [#/Vol]167 10*3/hCDbrvvt168-350UeyGwoilt Bonifay HospitalComment on above:Performed By: #### CMP #### [facility] ([facility]) [address] [place] [address] VIRRBC COUNT4.57 X10E12/LNormal3.8-5.2[facility] Comment on above:Performed By: #### CMP #### [facility] ([facility]) [address] [place] [address] VIRWBC (Bld) [#/Vol]13.7 10*3/uLHigh4-11ProMedica [place]ano HospitalComment on above:Performed By: #### CMP #### [facility] ([facility]) [address] [place] [address] [facility] auto differentialon 82-31-3070Kcvjdwinr (Bld) [#/Vol]0 10*3/uLSt. Rita's Hospital Health SystemBasophils/100 WBC (Bld)0.3 %[facility] SystemDifferential cell count method Nom (Bld)AUTOMATED DIFFERENTIALMercy Health Fairfield Hospital SystemEosinophils (Bld) [#/Vol]0 10*3/uLMercy Health Fairfield Hospital System Eosinophils/100 WBC (Bld)0 %[facility] SystemErythrocyte distribution width (RBC) [Ratio]15.5 %High11.5 - 15 %[facility] SystemHematocrit (Bld) [Volume fraction]38 %35 - 47 %[facility] SystemHemoglobin (Bld) [Mass/Vol] 12.3 g/dL11.7 - 15.5 g/dLMercy Health Fairfield Hospital SystemInterpretation and review of laboratory resultsAbnormalMercy Health Fairfield Hospital SystemLymphocytes (Bld) [#/Vol]0.9 10*3/uLMercy Health Fairfield Hospital SystemLymphocytes/100 WBC (Bld)6.4 %[facility] Hospital ToledoMCH (RBC) [Entitic mass]27 pg27 - 34 [facility] HospitalMCHC (RBC) [Mass/Vol]32.5 g/dL32 - 36 g/dLRegency Hospital ToledoMCV (RBC) [Entitic vol]83 fL80 - 100 [facility] WestMonocytes (Bld) [#/Vol]0.8 10*3/uLProCrystal Clinic Orthopedic Center SystemMonocytes/100 WBC (Bld)6 %[facility] SystemNeutrophils (Bld) [#/Vol]11.9 10*3/uLMercy Health Fairfield Hospital SystemNeutrophils/100 WBC (Bld)87.3 % [facility] SystemPlatelet mean volume (Bld) [Entitic vol]9.6 fL7 - [address] [facility] Health SystemPlatelets (Bld) [#/Vol]167 10*3/uLMercy Health Fairfield Hospital System RBC (Bld) [#/Vol]4.57 10*6/uLWashington County Tuberculosis HospitalApptopiaWBC LM Ql (Sput)13.7High [facility] Rehabilitatione994[facility] Tuberculosis HospitalApptopiaCardiac echo study Procedure Ordered By: Nava Gamez on 31-04-9553Drnnsd root3 [facility] PhiladelphiaPartender Work Phone: Aortic valve Mean systole pressure gradient by US.doppler derived full Inhzwtpsi4deOnVelVfuntd Health System Work Phone: Aortic valve Orifice area by US3.39[facility] Tuberculosis HospitalApptopia Work Phone: Aortic valve Peak systolic flow by US.retokvg569 cm/s [employer] Work Phone: AV peak gradient6.97mmHgWashington County Tuberculosis HospitalApptopia Work Phone: AV Velocity Ratio0.98[facility] HospitalApptopia Work Phone: AV VTI28.3 [facility] PhiladelphiaPartender Work Phone: E wave deceleration ljvq296bkjuZowYmfetaRealDeck Work Phone: E/A ratio0.5PPartender Work Phone: Energy loss index16.04[facility] Tuberculosis HospitalApptopia Work Phone: [phone] %28 - 44 %[employer] Work Phone: [phone] Septum Diastolic Thickness by 2D10 cm [employer] Work Phone: AIW3 cm0.6 - 1.1 [facility] PhiladelphiaPartender Work Phone: LA size3.2 [facility] PhiladelphiaPartender Work Phone: LA monlin01.4 gt5KsbObbnlqApptopia Work Phone: LA Volume Index28.1 mL/v6YotMaftprApptopia Work Phone: [phone] Ventricle Bzix598.34708206178405 Hollywood Medical CenterKoibanx Work Phone: LV ESV A2C53.2 mLWashington County Tuberculosis HospitalMedica Health System Work Phone: LV ESV A4C78.5 mLWashington County Tuberculosis HospitalApptopia Work Phone: [phone] RWT 2D56.41[facility] HospitalApptopia Work Phone: KMJSa0.9 cm7.16 - 9.95 [facility] PhiladelphiaPartender Work Phone: OCLXx2.1 cm4.15 - 6.28 [facility] PhiladelphiaPartender Work Phone: LVOT diameter2.1 [facility] PhiladelphiaPartender Work Phone: LVOT peak vel1.35 m/[facility] CenterKoibanx Work Phone: LVOT peak VTI27.7 [facility] PhiladelphiaPartender Work Phone: LVOT stroke kcaqck04.94 [facility] HospitalApptopia Work Phone: [phone] Valve Max Velocity2.24 cm/[facility] CenterKoibanx Work Phone: [phone] mean cmstxoxc86jnLcUytOphjbw Health System Work Phone: MV Peak A Tgg337 cm/[facility] CenterKoibanx Work Phone: [phone] Peak E Vel86.8 cm/[facility] CenterKoibanx Work Phone: MV peak gpqtinez35.07mmHgWashington County Tuberculosis HospitalApptopia Work Phone: MV pressure 1/2 byfx730 [facility] HospitalPartender Work Phone: [phone] TDI E' (medial)3.92 cm/[facility] CenterKoibanx Work Phone: MV valve area by continuity eq1.35[facility] HospitalUpper [facility]ervical Health Centers Work Phone: [phone] valve area p 1/2 method2.04 xf2HffEremuoApptopia Work Phone: [phone] VTI71 [facility] PhiladelphiaPartender Work Phone: [phone] peak gradient3.41mmHgWashington County Tuberculosis HospitalApptopia Work Phone: [phone] cm0.6 - 1.1 [facility] PhiladelphiaPartender Work Phone: [phone] diastolic dimension (basal)38 mmPOuachita and Morehouse parishes [employer] Work Phone: [phone] cmPOuachita and Morehouse parishes [employer] Work Phone: TDI3.81 cm/sProMedspringhill medical center [employer] Work Phone: Valve area - Index1.4ProApptopia Work Phone: GXSMOV-0.72ProWyandot Memorial HospitalUpper Cervical Health Centers Work Phone: KHEFEC-9.02ProWyandot Memorial HospitalUpper Cervical Health Centers Work Phone: ProApp[employer]ia Work Phone: Cardiac echo study Procedureon 85-74-1360YIPYWDV Radiology Study observation (narrative)[facility] Hospital ToledoELECTROLYTE PANEL on 11-84-0707Otzdf gap [Moles/Vol]11 mmol/LNormal5-15[facility] Comment on above:Performed By: #### CMP #### [facility] ([facility]) [address] [place] [address] VIRChloride [Moles/Vol]109 mmol/AAecrmb86-272FflBilodi [place] HospitalComment on above:Performed By: #### CMP #### [facility] ([facility]) [address] [place] [address] VIRCO2 [Moles/Vol]22 mmol/IXlsksf20-29JxaCyeuhvUniversity Hospitals [facility] Comment on above:Performed By: #### CMP #### [facility] ([facility]) [address] [place] [address] VIRPotassium [Moles/Vol]4.5 mmol/LNormal3.5-5.0ProFayette County Memorial HospitalComment on above:Performed By: #### CMP #### [facility] ([facility]) [address] [place] [address] VIRSodium [Moles/Vol]142 mmol/JGhfpbc562-630PhcLkyloi Toledo HospitalComment on above:Performed By: #### CMP #### [facility] ([facility]) [address] [place] [address] VIRAnion gap [Moles/Vol]10 mmol/LNormal5-15ProMedica Bonifay HospitalComment on above:Performed By: #### CMP #### [facility] ([facility]) [address] [place] [address] VIRChloride [Moles/Vol]110 mmol/QPqyu84-541MgrNjekne Bonifay HospitalComment on above:Performed By: #### CMP #### [facility] ([facility]) [address] [place] [address] VIRCO2 [Moles/Vol]23 mmol/YNvsloo17-70RkxTydehg [facility] Comment on above:Performed By: #### CMP #### [facility] ([facility]) [address] [place] [address] VIRPotassium [Moles/Vol]4.1 mmol/LNormal3.5-5.0ProMedica Bonifay HospitalComment on above:Performed By: #### CMP #### [facility] ([facility]) [address] [place] [address] VIRSodium [Moles/Vol]143 mmol/JWuyqxh965-456DahPapzxd [place] HospitalComment on above:Performed By: #### CMP #### [facility] ([facility]) [address] [place] [address] VIRElectrolyte panelOrdered By: Leif Bazan on 27-01-0855Gbdxh gap [Moles/Vol]11 mmol/L5 - 15 mmol/LProMedica Health SystemChloride [Moles/Vol]109 mmol/L98 - 109 mmol/LProMedica Health SystemCO2 [Moles/Vol]22 mmol/L22 - 32 mmol/LProMedica Health SystemInterpretation and review of laboratory results NormalProMedica Health SystemPotassium [Moles/Vol]4.5 mmol/L3.5 - 5.0 mmol/L Pro[facility] Health SystemSodium [Moles/Vol]142 mmol/L134 - 146 mmol/LProMedica Health SystemProMedica Kindred Healthcare SystemElectrolyte panelOrdered By: Mao Toro on 48-29-1931Itnqm gap [Moles/Vol]10 mmol/L5 - 15 mmol/LProMedica Health System Chloride [Moles/Vol]110 mmol/LHigh98 - 109 mmol/LProMedica Health SystemCO2 [Moles/Vol]23 mmol/L22 - 32 mmol/LProMedica Health SystemInterpretation and review of laboratory resultsAbnormalMercy Health Fairfield Hospital SystemPotassium [Moles/Vol] 4.1 mmol/L3.5 - 5.0 mmol/LProMedica Health SystemSodium [Moles/Vol]143 mmol/L134 - 146 mmol/LProMedica Health SystemProRmc [facility] Health SystemIONIZED CALCIUMon 69-87-9400IYDZCXF CALCIUM - ICAN4.6 mg/dLNormal4.5-5.3PUniversity [facility]als [facility] Comment on above:Performed By: #### CMP #### [facility] ([facility]) [address] [place] [address] VIRIonized calciumOrdered By: Eliza Vásquez on 09-22-2024 Calcium.ionized ISE [Moles/Vol]4.6 mg/dL4.5 - 5.3 mg/dLRegency Hospital [place] Interpretation and review of laboratory resultsNoNovant Health Medical Park Hospital ProMedica Kindred Healthcare SystemMAGNESIUMon 01-12-5658Hvnyllghc [Mass/Vol]1.9 mg/dLNormal 1.8-2.6St. Rita's HospitalComment on above:Performed By: #### CMP #### [facility] ([facility]) [address] [place] [address] VIRMagnesiumon 63-45-2370Nrerzyfkw [Mass/Vol]1.9 mg/dL1.8 - 2.6 mg/dLRegency Hospital ToledoNo Panel Informationon 24-11-8050Cwdennjfjdpqbm and review of laboratory resultsNormPenn State Health SystemMercy Health Fairfield Hospital SystemPHOSPHORUSon 68-00-7562Equyrrlda [Mass/Vol]3.3 mg/dLNormal2.4-4.9ProWyandot Memorial Hospitalca [place] HospitalComment on above:Performed By: #### CMP #### [facility] ([facility]) [address] [place] [address] VIRPhosphoruson 29-42-4774Lfttepqcc [Mass/Vol]3.3 mg/dL2.4 - 4.9 mg/dLSt. Rita's Hospital Health SystemTYPE AND SCREENon 56-38-7056VSO_XNEXDRDttteh St. Rita's HospitalComment on above:Performed By: #### [email or web address] #### [facility] ([facility]) [address] [place] [address] VIRRH_INTEPPositiveNormalSt. Rita's HospitalComment on above:Performed By: #### [email or web address] #### [facility] ([facility]) [address] [place] [address] VIRType and screen(includes indirect sinan)on 52-28-6410ODBN [facility] SystemRh Nom (Bld)PositiveProWilkes-Barre General HospitalVANCOMYCIN, RANDOMon 28-62-8736DDZUZKGQWC51.5 ug/mLNormal5.0-40.0 [address] Rita's HospitalComment on above:Order Comment: Peak 30-40 ug/mLTrough 5-20 ug/mlPerformed By: #### CMP #### [facility] ([facility]) [address] [place] [address] VIRVancomycin, randomon 93-78-3499Nrcqztxeij [Susc]16.5 ug/mL 5.0 - 40.0 ug/mLProWilkes-Barre General HospitalANA Screen w/ Reflexon 98-31-9492Lusaoepglritaj and review of laboratory resultsNormal [facility] Health SystemNuclear Ab IA Ql (S)NegativeNegativeProMedica Health SystemProMedica Levi HospitalBASIC METABOLIC PANELon 65-24-1628Jghpc gap [Moles/Vol]10 mmol/LNormal5-15[facility] Comment on above:Performed By: #### LACTS #### [facility] ([facility]) [address] [place] [address] VIRCalcium [Mass/Vol]9.2 mg/dLNormal8.5-10.5PUniversity Hospitals Elyria Medical CenterComment on above:Performed By: #### LACTS #### [facility] ([facility]) [address] [place] [address] VIRChloride [Moles/Vol]114 mmol/PWeqr11-656JctNfwnbj [place] HospitalComment on above:Performed By: #### LACTS #### [facility] ([facility]) [address] [place] [address] VIRCO2 [Moles/Vol]24 mmol/RScvfbk11-92JopNfauyx [facility] Comment on above:Performed By: #### LACTS #### [facility] ([facility]) [address] [place] [address] VIRCreatinine [Mass/Vol]1.27 mg/dLHigh0.40-1.00ProFayette County Memorial HospitalComment on above:Result Comment: METHOD TRACEABLE TO IDMS STANDARD Performed By: #### LACTS #### [facility] ([facility]) [address] [place] [address] VIRGFR/1.73 sq M.predicted among non-blacks MDRD (S/P/Bld) [Vol rate/Area]50 mL/min/{1.73_m2}Low>=60ProFayette County Memorial HospitalComment on above: Result Comment: Reported eGFR is based on the CKD-EPI 1 equation that does not use a race coefficient.Performed By: #### LACTS #### [facility] ([facility]) [address] [place] [address] VIRGlucose [Mass/Vol]127 mg/iCOlyq26-28PvpHinczg [place] HospitalComment on above:Performed By: #### LACTS #### [facility] ([facility]) [address] [place] [address] VIRPotassium [Moles/Vol]3.9 mmol/LNormal3.5-5.0ProFayette County Memorial HospitalComment on above:Performed By: #### LACTS #### [facility] ([facility]) [address] [place] [address] VIRSodium [Moles/Vol]148 mmol/PQknl513-863FcoWpwvgyFayette County Memorial HospitalComment on above:Performed By: #### LACTS #### [facility] ([facility]) [address] [place] [address] VIRUrea nitrogen [Mass/Vol]24 mg/dLHigh5-23ProFayette County Memorial HospitalComment on above:Performed By: #### LACTS #### [facility] ([facility]) [address] [place] [address] VIRBacteria identified Aer cx Nom (Bld)Ordered By: Maicol Mg on 07-96-9896Dmkrxdrs identified Aer cx Nom (Unsp spec)NegativeAbnormal [facility] Health SystemInterpretation and review of laboratory resultsAbnormal [facility] Health SystemMicroscopic observation Gram stain Nom (Unsp spec) PositiveAbnormalProRmc Stringfellow Memorial Hospital Health SystemProMedica Health SystemProMediSelect Medical Specialty Hospital - Cincinnati North SystemBasic Metabolic Panelon 87-01-2273Dnemr gap [Moles/Vol]10 mmol/L5 - 15 mmol/LProMedica Health SystemCalcium [Mass/Vol]9.2 mg/dL8.5 - 10.5 mg/dL ProMedica Health SystemChloride [Moles/Vol]114 mmol/LHigh98 - 109 mmol/L [facility] Rehabilitationedica Health SystemCO2 [Moles/Vol]24 mmol/L22 - 32 mmol/LProMedica Health SystemCreatinine [Mass/Vol]1.27 mg/dLHigh0.40 - 1.00 mg/dLMercy Health Fairfield Hospital SystemEGFR Non-Race Lclutxsdr95Xwz- PINFProMedNationwide Children's Hospital SystemGlucose [Mass/Vol]127 mg/ySBusj30 - 99 mg/dLProCrystal Clinic Orthopedic Center SystemInterpretation and review of laboratory resultsAbnormalMercy Health Fairfield Hospital SystemPotassium [Moles/Vol] 3.9 mmol/L3.5 - 5.0 mmol/LProMedica Health SystemSodium [Moles/Vol]148 mmol/L Mbck929 - 146 mmol/LProMedica Health SystemUrea nitrogen [Mass/Vol]24 mg/dLHigh5 - 23 mg/dLShriners Hospitals for Children - PhiladelphiaCBC WITH AUTO DIFFERENTIALon 20-62-3186TOUXBZAXD ABSOLUTE COUNT (10*3/UL) BY AUTOMATED COUNT 0.1 10*3/uLNormalSt. Rita's HospitalComment on above:Performed By: #### RONIT #### [facility] ([facility]) [address] [place] [address] VIRBASOPHILS RELATIVE PERCENT BY AUTOMATED COUNT0.7 %Normal St. Rita's HospitalComment on above:Performed By: #### RONIT #### [facility] ([facility]) [address] [place] [address] VIRCELLAVISION DIFFERENTIAL TYPEAUTOMATED DIFFERENTIALNoal St. Rita's HospitalComment on above:Performed By: #### RONIT #### [facility] ([facility]) [address] [place] [address] VIREosinophils (Bld) [#/Vol]0.0 10*3/uLNoSamaritan North Health CenterComment on above:Performed By: #### RONIT #### [facility] ([facility]) [address] [place] [address] VIREOSINOPHILS RELATIVE PERCENT BY AUTOMATED COUNT0.0 %Normal St[facility] Rita's HospitalComment on above:Performed By: #### RONIT #### [facility] ([facility]) [address] [place] [address] VIRErythrocyte distribution width (RBC) [Ratio]15.1 %High 11.5-15St. Rita's HospitalComment on above:Performed By: #### RONIT #### [facility] ([facility]) [address] [place] [address] VIRHematocrit (Bld) [Volume fraction]33.6 %Atu77-91TgyBkocnb Bonifay HospitalComment on above:Performed By: #### RONIT #### [facility] ([facility]) [address] [place] [address] VIRHemoglobin (Bld) [Mass/Vol]11.0 g/dLLow11.7-15.5ProMedica Bonifay HospitalComment on above:Performed By: #### RONIT #### [facility] ([facility]) [address] [place] [address] VIRLYMPHOCYTES ABSOLUTE COUNT (10*3/UL) BY AUTOMATED COUNT0.8 10*3/uLNormalProMedica Bonifay HospitalComment on above:Performed By: #### RONIT #### [facility] ([facility]) [address] [place] [address] VIRLYMPHOCYTES RELATIVE PERCENT BY AUTOMATED COUNT6.2 %Normal ProMedica Bonifay HospitalComment on above:Performed By: #### RONIT #### [facility] ([facility]) [address] [place] [address] VIRMCH (RBC) [Entitic mass]27.1 mpJdcxjt35-92MyqNyluzs [facility]ay HospitalComment on above:Performed By: #### RONIT #### [facility] ([facility]) [address] [place] [address] VIRMCHC (RBC) [Mass/Vol]32.6 g/xQZplchr14-22QnaAwmafp [facility] HospitalComment on above:Performed By: #### RONIT #### [facility] ([facility]) [address] [place] [address] VIRMCV (RBC) [Entitic vol]83 bMFdpxxd98-286HbyCyadai [facility]ay HospitalComment on above:Performed By: #### RONIT #### [facility] ([facility]) [address] [place] [address] VIRMONOCYTES ABSOLUTE COUNT (10*3/UL) BY AUTOMATED COUNT0.6 10*3/uLNormalProMedica Bonifay HospitalComment on above:Performed By: #### RONIT #### [facility] ([facility]) [address] [place] [address] VIRMONOCYTES RELATIVE PERCENT BY AUTOMATED COUNT4.8 %Normal [facility] HospitalComment on above:Performed By: #### RONIT #### [facility] ([facility]) [address] [place] [address] VIRNEUTROPHILS ABSOLUTE COUNT BY AUTOMATED COUNT10.8 10*3/uL NormalProMedica Bonifay HospitalComment on above:Performed By: #### RONIT #### [facility] ([facility]) [address] [place] [address] VIRNEUTROPHILS RELATIVE PERCENT BY AUTOMATED COUNT88.3 %Normal [facility] HospitalComment on above:Performed By: #### RONIT #### [facility] ([facility]) [address] [place] [address] VIRPlatelet mean volume (Bld) [Entitic vol]9.2 fLNormal7-12 ProMspringhill medical centera Bonifay HospitalComment on above:Performed By: #### RONIT #### [facility] ([facility]) [address] [place] [address] VIRPlatelets (Bld) [#/Vol]183 10*3/bCPsqznj315-037UefQfmhib [facility]ay HospitalComment on above:Performed By: #### RONIT #### [facility] ([facility]) [address] [place] [address] VIRRBC COUNT4.05 X10E12/LNormal3.8-5.2[facility] Comment on above:Performed By: #### RONIT #### [facility] ([facility]) [address] [place] [address] VIRWBC (Bld) [#/Vol]12.2 10*3/uLHigh4-11ProMedica Bonifay HospitalComment on above:Performed By: #### RONIT #### [facility] ([facility]) [address] [place] [address] [facility] auto differentialon 60-86-9755Lznyflztm (Bld) [#/Vol]0.1 10*3/uLRegency Hospital ToledoBasophils/100 WBC (Bld)0.7 %[facility] Hospital ToledoDifferential cell count method Nom (Bld)AUTOMATED DIFFERENTIALRegency Hospital ToledoEosinophils (Bld) [#/Vol]0 10*3/[facility] Eosinophils/100 WBC (Bld)0 %[facility] Hospital ToledoErythrocyte distribution width (RBC) [Ratio]15.1 %High11.5 - 15 %[facility] Hospital ToledoHematocrit (Bld) [Volume fraction]33.6 %Low35 - 47 %[facility] Hospital ToledoHemoglobin (Bld) [Mass/Vol]11 g/dLLow11.7 - 15.5 g/dLRegency Hospital ToledoInterpretation and review of laboratory resultsAbnormalRegency Hospital ToledoLymphocytes (Bld) [#/Vol]0.8 10*3/[facility] HospitalLymphocytes/100 WBC (Bld)6.2 %[facility] Hospital ToledoMCH (RBC) [Entitic mass]27.1 pg27 - 34 [facility] MCHC (RBC) [Mass/Vol]32.6 g/dL32 - 36 g/dLRegency Hospital ToledoMCV (RBC) [Entitic vol]83 fL80 - 100 [facility] WestMonocytes (Bld) [#/Vol]0.6 10*3/uLRegency Hospital ToledoMonocytes/100 WBC (Bld)4.8 %[facility] Hospital ToledoNeutrophils (Bld) [#/Vol]10.8 10*3/uLMercy Health Fairfield Hospital System Neutrophils/100 WBC (Bld)88.3 %[facility] Hospital ToledoPlatelet mean volume (Bld) [Entitic vol]9.2 fL7 - 12 [facility] WestPlatelets (Bld) [#/Vol]183 10*3/uLSt. Rita's Hospital Health SystemRBC (Bld) [#/Vol]4.05 10*6/[facility] HospitalWBC LM Ql (Sput)12.2HGeisinger [facility] ELECTROLYTE PANELon 78-62-9299Rgxql gap [Moles/Vol]11 mmol/LNormal5-15ProMedica [place]ano HospitalComment on above:Performed By: #### CMP #### [facility] ([facility]) [address] [place] [address] VIRChloride [Moles/Vol]113 mmol/ZAvtz87-878OqvOsuijy [place] HospitalComment on above:Performed By: #### CMP #### [facility] ([facility]) [address] [place] [address] VIRCO2 [Moles/Vol]22 mmol/CXegrns21-56OtcQscosl [facility] Comment on above:Performed By: #### CMP #### [facility] ([facility]) [address] [place] [address] VIRPotassium [Moles/Vol]4.2 mmol/LNormal3.5-5.0ProMedica [place] HospitalComment on above:Performed By: #### CMP #### [facility] ([facility]) [address] [place] [address] VIRSodium [Moles/Vol]146 mmol/WHqkuop621-015ZieVophyn [place] HospitalComment on above:Performed By: #### CMP #### [facility] ([facility]) [address] [place] [address] VIRAnion gap [Moles/Vol]9 mmol/LNormal5-15ProMedica [place] HospitalComment on above:Performed By: #### LACTS #### [facility] ([facility]) [address] [place] [address] VIRChloride [Moles/Vol]112 mmol/CGebr33-360MvfGietry [place] HospitalComment on above:Performed By: #### LACTS #### [facility] ([facility]) [address] [place] [address] VIRCO2 [Moles/Vol]24 mmol/YFxtprc44-20MiaFybbwl [facility] Comment on above:Performed By: #### LACTS #### [facility] ([facility]) [address] [place] [address] VIRPotassium [Moles/Vol]4.1 mmol/LNormal3.5-5.0ProJoint Township District Memorial Hospital HospitalComment on above:Performed By: #### LACTS #### [facility] ([facility]) [address] [place] [address] VIRSodium [Moles/Vol]145 mmol/NRyzsis094-547LzmQejbhn [place] HospitalComment on above:Performed By: #### LACTS #### [facility] ([facility]) [address] [place] [address] VIRElectrolyte panelOrdered By: Tk Keene on 37-73-1595Oivcc gap [Moles/Vol]11 mmol/L5 - 15 mmol/LProMedica Health System Chloride [Moles/Vol]113 mmol/LHigh98 - 109 mmol/LProMedica Health SystemCO2 [Moles/Vol]22 mmol/L22 - 32 mmol/LProMedica Health SystemInterpretation and review of laboratory resultsAbnormalProMedica Health SystemPotassium [Moles/Vol] 4.2 mmol/L3.5 - 5.0 mmol/LProMedica Health SystemSodium [Moles/Vol]146 mmol/L134 - 146 mmol/LProMedica Health SystemProMedica Health SystemElectrolyte panel Ordered By: Alexa Carrero on 18-78-2186Sjzwd gap [Moles/Vol]9 mmol/L5 - 15 mmol/LProMedica Health SystemChloride [Moles/Vol]112 mmol/LHigh98 - 109 mmol/L Pro[facility] Health SystemCO2 [Moles/Vol]24 mmol/L22 - 32 mmol/LProMedica Health SystemInterpretation and review of laboratory resultsAbnormalProMedica Health SystemPotassium [Moles/Vol]4.1 mmol/L3.5 - 5.0 mmol/LPrHealthSouth Rehabilitation [facility] Sodium [Moles/Vol]145 mmol/L134 - 146 mmol/LProMedica Kindred Healthcare SystemProWyandot Memorial Hospitalca Kindred Healthcare SystemGlomerular basement membrane IgG ABon 03-63-1031Wyugcjtnzr basement membrane IgG Qn (S)NINMissouri Baptist Medical CenterIONIZED CALCIUMon 09-21-2024 IONIZED CALCIUM - ICAN5.1 mg/dLNormal4.5-5.3PUniversity Hospitals Elyria Medical CenterComment on above:Performed By: #### RONIT #### [facility] ([facility]) [address] [place] [address] VIRIONIZED MAGNESIUMon 35-03-4774Jqcijdfiu [Moles/Vol]0.61 mmol/LNormal0.45-0.74St. Rita's HospitalComment on above:Performed By: #### LACTS #### [facility] ([facility]) [address] [place] [address] VIRIonized calciumon 62-52-9193Emfhgcb.ionized ISE [Moles/Vol] 5.1 mg/dL4.5 - 5.3 mg/dLMercy Health Fairfield Hospital SystemInterpretation and review of laboratory resultsNormalAurora Medical Center in Summit SystemIonized magnesiumon 81-92-0251Hpzfhuivyemwox and review of laboratory resultsNormal [facility] Hospital ToledoMagnesium Ionized ISE (Bld) [Moles/Vol]0.61 mmol/L0.45 - 0.74 mmol/LProMedMarshfield Medical Center/Hospital Eau Claire SystemMAGNESIUMon 09-21-2024 Magnesium [Mass/Vol]1.8 mg/dLNormal1.8-2.6ProFayette County Memorial HospitalComment on above:Performed By: #### RONIT #### [facility] ([facility]) [address] [place] [address] VIRMagnesiumon 79-39-9992Qgkhkpdxz [Mass/Vol]1.8 mg/dL1.8 - 2.6 mg/dLRegency Hospital ToledoMyeloperoxidase ABon 83-99-7149Hyiylggudhcspgo Ab Qn (S)NINFProMedica Health SystemNo Panel Informationon 52-96-5586Mpgjcjqksetrzn and review of laboratory resultsNormalProCrystal Clinic Orthopedic Center SystemMercy Health Fairfield Hospital SystemInterpretation and review of laboratory resultsNormalShriners Hospitals for Children - PhiladelphiaPHOSPHORUSon 38-53-9118Qdvuzioed [Mass/Vol]2.7 mg/dLNormal2.4-4.9[facility] HospitalComment on above:Performed By: #### LACTS #### [facility] ([facility]) [address] [place] [address] VIRPhosphoruson 28-01-4013Whtrrsjqk [Mass/Vol]2.7 mg/dL2.4 - 4.9 mg/dLRegency Hospital ToledoProteinase 3 AB PR3on 44-73-8828Dvnpqkmhgp 3 Ab Qn (S)[facility] HospitalVANCOMYCIN, RANDOMon 30-59-3913TWHDYFWSDT19.0 ug/mLNormal5.0-40.0St. Rita's HospitalComment on above:Order Comment: Result did not trigger repeat Lactate, re-order if needed.Performed By: #### LACTS #### [facility] ([facility]) [address] [place] [address] VIRVancomycin, randomon 82-78-2592Iohobjguljnetd and review of laboratory resultsNormLicking Memorial HospitalVancomycin [Susc]16 ug/mL5.0 - 40.0 ug/mLFort Memorial [facility] System BASIC METABOLIC PANELon 81-73-5870Ypsag gap [Moles/Vol]11 mmol/LNormal5-15 ProMMemorial Health System Marietta Memorial HospitalComment on above:Performed By: #### NUM #### [facility] ([facility]) [address] [place] [address] VIRCalcium [Mass/Vol]9.3 mg/dLNormal8.5-10.5PUniversity Hospitals Elyria Medical CenterComment on above:Performed By: #### NUM #### [facility] ([facility]) [address] [place] [address] VIRChloride [Moles/Vol]119 mmol/VLuis15-368FovHyzooi [place] HospitalComment on above:Performed By: #### NUM #### [facility] ([facility]) [address] [place] [address] VIRCO2 [Moles/Vol]24 mmol/MMxzcgs70-46IygJvzivp [facility] Comment on above:Performed By: #### NUM #### [facility] ([facility]) [address] [place] [address] VIRCreatinine [Mass/Vol]2.60 mg/dLHigh0.40-1.00ProJoint Township District Memorial Hospital HospitalComment on above:Result Comment: METHOD TRACEABLE TO IDMS STANDARD Performed By: #### NUM #### [facility] ([facility]) [address] [place] [address] VIRGFR/1.73 sq M.predicted among non-blacks MDRD (S/P/Bld) [Vol rate/Area]21 mL/min/{1.73_m2}Low>=60ProFayette County Memorial HospitalComment on above: Result Comment: Reported eGFR is based on the CKD-EPI 2020 equation that does not use a race coefficient.Performed By: #### NUM #### [facility] ([facility]) [address] [place] [address] VIRGlucose [Mass/Vol]149 mg/nCCogf94-38FtoSllgof [place] HospitalComment on above:Performed By: #### NUM #### [facility] ([facility]) [address] [place] [address] VIRPotassium [Moles/Vol]4.0 mmol/LNormal3.5-5.0ProJoint [facility] HospitalComment on above:Performed By: #### NUM #### [facility] ([facility]) [address] [place] [address] VIRSodium [Moles/Vol]154 mmol/ALwoi994-616MfwHhtsca [place] HospitalComment on above:Performed By: #### NUM #### [facility] ([facility]) [address] [place] [address] VIRUrea nitrogen [Mass/Vol]38 mg/dLHigh5-23ProJoint [facility] HospitalComment on above:Performed By: #### NUM #### [facility] ([facility]) [address] [place] [address] VIRBLOOD CULTUREon [id number] identified Cx Nom (Bld) CULTURE RESULTS NO GROWTH 5 DAYSNormalCleveland Clinic Foundation HospitalComment on above:Order Comment: Result did not trigger repeat Lactate, re-order if needed.Performed By: #### LACTS #### [facility] ([facility]) [address] [place] [address] VIRBacteria identified Cx Nom (Bld)CULTURE RESULTS NO GROWTH 5 DAYSNoOhioHealth HospitalComment on above:Order Comment: *SIRS Criteria: (must display 2 without [...] volume of blood collected, Results may be affected.Performed By: #### CMP #### [facility] ([facility]) [address] [place] [address] VIRBasic Metabolic Panelon 72-44-3426Qdhsc gap [Moles/Vol]11 mmol/L5 - 15 mmol/LProMedica Health SystemCalcium [Mass/Vol]9.3 mg/dL8.5 - 10.5 mg/dLProMedica Health SystemChloride [Moles/Vol]119 mmol/LHigh98 - 109 mmol/L ProMedica Health SystemCO2 [Moles/Vol]24 mmol/L22 - 32 mmol/LProMedica Health SystemCreatinine [Mass/Vol]2.6 mg/dLHigh0.40 - 1.00 mg/dLRegency Hospital [place]edo EGFR Non-Race Tuyltcyjt82Rmn- PINFPMercy Health St. Elizabeth Boardman HospitalGlucose [Mass/Vol]149 mg/bDHxxc73 - 99 mg/dLRegency Hospital ToledoInterpretation and review of laboratory resultsAbnoNovant Health Medical Park HospitalPotassium [Moles/Vol]4 mmol/L 3.5 - 5.0 mmol/LPrHealthSouth Rehabilitation Hospital of Littleton Health SystemSodium [Moles/Vol]154 mmol/RTeyo219 - 146 mmol/LPrPremier Health Atrium Medical CenterUrea nitrogen [Mass/Vol]38 mg/dLHigh5 - 23 mg/dL [facility]ency Hospital ToledoCBC WITH AUTO DIFFERENTIALon [id number] ABSOLUTE COUNT (10*3/UL) BY AUTOMATED COUNT0.0 10*3/uLFulton County Health Center Comment on above:Performed By: #### NUM #### [facility] ([facility]) [address] [place] [address] VIRBASOPHILS RELATIVE PERCENT BY AUTOMATED COUNT0.5 %Normal St[facility] Rita's HospitalComment on above:Performed By: #### NUM #### [facility] ([facility]) [address] [place] [address] VIRCELLAVISION DIFFERENTIAL TYPEAUTOMATED DIFFERENTIALGeneral Leonard Wood Army Community Hospitalal St. Rita's HospitalComment on above:Performed By: #### NUM #### [facility] ([facility]) [address] [place] [address] VIREosinophils (Bld) [#/Vol]0.0 10*3/uLNoSamaritan North Health CenterComment on above:Performed By: #### NUM #### [facility] ([facility]) [address] [place] [address] VIREOSINOPHILS RELATIVE PERCENT BY AUTOMATED COUNT0.0 %Normal St[facility] Rita's HospitalComment on above:Performed By: #### NUM #### [facility] ([facility]) [address] [place] [address] VIRErythrocyte distribution width (RBC) [Ratio]15.6 %High 11.5-15ProMedica [place] HospitalComment on above:Performed By: #### NUM #### [facility] ([facility]) [address] [place] [address] VIRHematocrit (Bld) [Volume fraction]33.5 %Ehk29-35BpfDoiqph [place] HospitalComment on above:Performed By: #### NUM #### [facility] ([facility]) [address] [place] [address] VIRHemoglobin (Bld) [Mass/Vol]11.0 g/dLLow11.7-15.5ProMedica [place] HospitalComment on above:Performed By: #### NUM #### [facility] ([facility]) [address] [place] [address] VIRLYMPHOCYTES ABSOLUTE COUNT (10*3/UL) BY AUTOMATED COUNT0.5 10*3/uLNormalProMedica [place] HospitalComment on above:Performed By: #### NUM #### [facility] ([facility]) [address] [place] [address] VIRLYMPHOCYTES RELATIVE PERCENT BY AUTOMATED COUNT5.6 %Normal ProMedica [place] HospitalComment on above:Performed By: #### NUM #### [facility] ([facility]) [address] [place] [address] VIRMCH (RBC) [Entitic mass]26.9 gaFwu97-48BrnLzzawv [place] HospitalComment on above:Performed By: #### NUM #### [facility] ([facility]) [address] [place] [address] VIRMCHC (RBC) [Mass/Vol]32.8 g/lUUpfehg99-23RkyIonhqv [place] HospitalComment on above:Performed By: #### NUM #### [facility] ([facility]) [address] [place] [address] VIRMCV (RBC) [Entitic vol]82 jODmujvs02-928CaoEjpwrm [place] HospitalComment on above:Performed By: #### NUM #### [facility] ([facility]) [address] [place] [address] VIRMONOCYTES ABSOLUTE COUNT (10*3/UL) BY AUTOMATED COUNT0.4 10*3/uLNormalProMedica [place] HospitalComment on above:Performed By: #### NUM #### [facility] ([facility]) [address] [place] [address] VIRMONOCYTES RELATIVE PERCENT BY AUTOMATED COUNT4.3 %Normal ProMspringhill medical centera Bonifay HospitalComment on above:Performed By: #### NUM #### [facility] ([facility]) [address] [place] [address] VIRNEUTROPHILS ABSOLUTE COUNT BY AUTOMATED COUNT8.0 10*3/uL NormalProMedica [place] HospitalComment on above:Performed By: #### NUM #### [facility] ([facility]) [address] [place] [address] VIRNEUTROPHILS RELATIVE PERCENT BY AUTOMATED COUNT89.6 %Normal [facility] HospitalComment on above:Performed By: #### NUM #### [facility] ([facility]) [address] [place] [address] VIRPlatelet mean volume (Bld) [Entitic vol]9.0 fLNormal7-12 ProMspringhill medical centera Bonifay HospitalComment on above:Performed By: #### NUM #### [facility] ([facility]) [address] [place] [address] VIRPlatelets (Bld) [#/Vol]190 10*3/vQTubgca293-577VsoDnqgjn [place] HospitalComment on above:Performed By: #### NUM #### [facility] ([facility]) [address] [place] [address] VIRRBC COUNT4.08 X10E12/LNormal3.8-5.2Pro[facility]ica [facility] Comment on above:Performed By: #### NUM #### [facility] ([facility]) [address] [place] [address] VIRWBC (Bld) [#/Vol]8.9 10*3/uLNormal4-11St. Rita's HospitalComment on above:Performed By: #### NUM #### [facility] ([facility]) [address] [place] [address] VIRCBC auto differentialon 07-64-9826Srctytpfe (Bld) [#/Vol]0 10*3/[facility] HospitalBasophils/100 WBC (Bld)0.5 %[facility] Hospital ToledoDifferential cell count method Nom (Bld)AUTOMATED DIFFERENTIALRegency Hospital ToledoEosinophils (Bld) [#/Vol]0 10*3/[facility] Eosinophils/100 WBC (Bld)0 %[facility] Hospital ToledoErythrocyte distribution width (RBC) [Ratio]15.6 %High11.5 - 15 %[facility] Hospital ToledoHematocrit (Bld) [Volume fraction]33.5 %Low35 - 47 %[facility] Hospital ToledoHemoglobin (Bld) [Mass/Vol]11 g/dLLow11.7 - 15.5 g/dLRegency Hospital ToledoInterpretation and review of laboratory resultsAbnormalRegency Hospital ToledoLymphocytes (Bld) [#/Vol]0.5 10*3/uLRegency Hospital ToledoLymphocytes/100 WBC (Bld)5.6 %[facility] HospitalH (RBC) [Entitic mass]26.9 pgLow27 - 34 [facility] HospitalMCHC (RBC) [Mass/Vol]32.8 g/dL32 - 36 g/dLRegency Hospital ToledoMCV (RBC) [Entitic vol]82 fL80 - 100 [facility] WestMonocytes (Bld) [#/Vol]0.4 10*3/uLRegency Hospital ToledoMonocytes/100 WBC (Bld)4.3 %[facility] Hospital ToledoNeutrophils (Bld) [#/Vol]8 10*3/uLRegency Hospital ToledoNeutrophils/100 WBC (Bld)89.6 %[facility] SystemPlatelet mean volume (Bld) [Entitic vol]9 fL7 - 12 [facility] SystemPlatelets (Bld) [#/Vol]190 10*3/[facility] SystemRBC (Bld) [#/Vol]4.08 10*6/[facility] City HospitalWBC LM Ql (Sput)8.9[facility] Children - PhiladelphiaCT ABDOMEN AND PELVIS WO CONTon 86-69-8896SC ABDOMEN AND PELVIS WO CONTCT ABDOMEN AND PELVIS WO CONT CT ABDOMEN [...] low as reasonably achievable. Finalized by Bipin Meija MD on 09/20/2024 3:53 PMNormalProFayette County Memorial HospitalCT Abdomen and Pelvis WO contraston 11-37-3143RJSFWMFTXCZwrIstjno Health System Radiology Study observation (narrative)ProMTrinity Health System Twin City Medical CenterCT Abdomen and Pelvis WO contrastOrdered By: Bipin Mejia on 17-03-2469VjlEjohzmRegency Hospital Toledo Work Phone: ELECTROLYTE PANELon 51-58-0113Lhkmo gap [Moles/Vol]9 mmol/LNormal5-15ProJoint Township District Memorial Hospital HospitalComment on above:Performed By: #### RONIT #### [facility] ([facility]) [address] [place] [address] VIRChloride [Moles/Vol]113 mmol/UTbhc55-378YjaNlchafFayette County Memorial HospitalComment on above:Performed By: #### RONIT #### [facility] ([facility]) [address] [place] [address] VIRCO2 [Moles/Vol]25 mmol/QEgavjy91-90HjyEjpqcgUniversity Hospitals [facility] Center Comment on above:Performed By: #### RONIT #### [facility] ([facility]) [address] [place] [address] VIRPotassium [Moles/Vol]5.1 mmol/LHigh3.5-5.0St. [facility]'s HospitalComment on above:Result Comment: R-Specimen markedly hemolyzed, results increasedPerformed By: #### RONIT #### [facility] ([facility]) [address] [place] [address] VIRSodium [Moles/Vol]147 mmol/UIqfk772-856WvwNbiiyd [place] HospitalComment on above:Result Comment: R-Specimen markedly hemolyzed, results questionable due to hemolysisPerformed By: #### RONIT #### [facility] ([facility]) [address] [place] [address] VIRAnion gap [Moles/Vol]8 mmol/LNormal5-15ProJoint Township District Memorial Hospital HospitalComment on above:Performed By: #### RONIT #### [facility] ([facility]) [address] [place] [address] VIRChloride [Moles/Vol]117 mmol/QQeqi37-527ItjYtnjkfFayette County Memorial HospitalComment on above:Performed By: #### RONIT #### [facility] ([facility]) [address] [place] [address] VIRCO2 [Moles/Vol]26 mmol/OPxnwei28-28RyyXrfuwl [facility] Comment on above:Performed By: #### RONIT #### [facility] ([facility]) [address] [place] [address] VIRPotassium [Moles/Vol]4.0 mmol/LNormal3.5-5.0ProFayette County Memorial HospitalComment on above:Performed By: #### RONIT #### [facility] ([facility]) [address] [place] [address] VIRSodium [Moles/Vol]151 mmol/KGgbu111-948NrfXryykzFayette County Memorial HospitalComment on above:Performed By: #### RONIT #### [facility] ([facility]) [address] [place] [address] VIRElectrolyte panelOrdered By: Med Quiros on 86-52-7082Sqhsm gap [Moles/Vol]9 mmol/L5 - 15 mmol/LProMedica Health System Chloride [Moles/Vol]113 mmol/LHigh98 - 109 mmol/LProMedica Health SystemCO2 [Moles/Vol]25 mmol/L22 - 32 mmol/LProMedica Health SystemInterpretation and review of laboratory resultsAbnormalProMedica Health SystemPotassium [Moles/Vol] 5.1 mmol/LHigh3.5 - 5.0 mmol/LProMedica Health SystemSodium [Moles/Vol]147 mmol/ASaps431 - 146 mmol/LProMedica Health SystemProMediia Health System Electrolyte panelon 27-53-5124Tjabn gap [Moles/Vol]8 mmol/L5 - 15 mmol/L [facility] SystemChloride [Moles/Vol]117 mmol/LHigh98 - 109 mmol/L [facility] SystemCO2 [Moles/Vol]26 mmol/L22 - 32 mmol/LProMedica Health SystemInterpretation and review of laboratory resultsAbnormalMercy Health Fairfield Hospital SystemPotassium [Moles/Vol]4 mmol/L3.5 - 5.0 mmol/LProMedica Health SystemSodium [Moles/Vol]151 mmol/NSfyw446 - 146 mmol/LProMedica Health SystemProRmc [facility] Hospital Health SystemIONIZED CALCIUMon 65-86-4240LOHEZBB CALCIUM - ICAN5.2 mg/dLNormal 4.5-5.3PUniversity Hospitals Elyria Medical CenterComment on above:Performed By: #### NUM #### [facility] ([facility]) [address] [place] [address] VIRIONIZED MAGNESIUMon 71-34-6812Vyepvbkty [Moles/Vol]0.64 mmol/LNormal0.45-0.74St. [facility] HospitalComment on above:Performed By: #### RONIT #### [facility] ([facility]) [address] [place] [address] VIRIonized calciumon 67-05-6677Iwngbhx.ionized ISE [Moles/Vol] 5.2 mg/dL4.5 - 5.3 mg/dLRegency Hospital ToledoInterpretation and review of laboratory resultsNormalMercy Health Fairfield Hospital SystemMercy Health Fairfield Hospital SystemIonized magnesiumon 53-87-2671Lgeyfkacdydebn and review of laboratory resultsNormal [facility] SystemMagnesium Ionized ISE (Bld) [Moles/Vol]0.64 mmol/L0.45 - 0.74 mmol/LProMedica [facility]rin[facility] SystemMAGNESIUMon 09-20-2024 Magnesium [Mass/Vol]1.8 mg/dLNormal1.8-2.6St[facility] HospitalComment on above:Performed By: #### NUM #### [facility] ([facility]) [address] [place] [address] VIRMR BRAIN SYNAPTIVEon 74-01-8460FF BRAIN SYNAPTIVEMR BRAIN SYNAPTIVE History: Right temporal lobe mass shown on brain CT COMPARISON: Brain CT from September 18 outside facility [place] PROCEDURE: Multiplanar multisequence images performed through the [...] inferior by 46.4 mm anterior to posterior and38.7 mm medial to lateral Extensive susceptibility artifacts within the process suggesting some calcification or hemorrhage No extra-axial fluid collections. No MR evidence for an infarct. Diffusion tensor imaging utilized for delineating the associated white matter tracts. IMPRESSION: Right temporal lobe lesion detailed above for surgical planning. I favor a primary [employer] neoplasm such as a glioblastoma or astrocytoma. Metastasis can also present in this fashion. Finalized by Juan Antonio Lindquist MD on 09/20/2024 7:17 AMNormalSt. Rita's Hospital MR Brainon 35-84-7667SQLXGSGZDCGpwGwucny Health SystemRadiology Study observation (narrative)[facility] Hospital ToledoMR BrainOrdered By: Juan Antonio Lindquist on 13-40-7725MwuSnuhjbRegency Hospital Toledo Work Phone: Magnesiumon 30-86-5089Zuojlqsqv [Mass/Vol]1.8 mg/dL1.8 - 2.6 mg/dLRegency Hospital ToledoNo Panel Informationon 09-20-2024 Interpretation and review of laboratory resultsNormalMercy Philadelphia HospitalPHOSPHORUSon 81-10-8244Gseyrumdo [Mass/Vol]3.5 mg/dL Normal2.4-4.9St. [facility]'s HospitalComment on above:Performed By: #### NUM #### [facility] ([facility]) [address] [place] [address] VIRPhosphoruson 88-04-6520Nueyalplu [Mass/Vol]3.5 mg/dL2.4 - 4.9 mg/dLRegency Hospital ToledoVANCOMYCIN, RANDOMon 84-47-6620ZITZJHPBXC18.0 ug/mLNormal5.0-40.0St. [facility]'s HospitalComment on above:Order Comment: Peak 30-40 ug/mLTrough 5-20 ug/mlPerformed By: #### RONIT #### [facility] ([facility]) [address] [place] [address] VIRVancomycin, randomon 38-01-6283Kuyhqhotzagkkp and review of laboratory resultsNoNovant Health Medical Park HospitalVancomycin [Susc]10 ug/mL5.0 - 40.0 ug/mLFort [facility] X-ray abdomen NG Tube placement 1 viewon 98-86-2597DNGXLDNWJJCskQdkhoj Health SystemRadiology Study observation (narrative)[facility] SystemX-ray abdomen NG Tube placement 1 viewOrdered By: Thad Aguero on 11-68-1398KbaOjazmp Health System Work Phone: XR ABD NG TUBE PLACEMENT 1 VIEWon 93-96-3105HK ABD NG TUBE PLACEMENT 1 VIEWXR ABD NG TUBE PLACEMENT 1 VIEW Supine abdominal radiograph HISTORY: NG placement COMPARISON: None IMPRESSION: NG tube extends below the diaphragm into the stomach with tip in the distal gastric body. Finalized by Thad Aguero MD on 09/20/2024 8:04 PMNormalSt. Rita's HospitalAMMONIAon 40-48-4526Qovlneu (P) [Moles/Vol]24 umol/IWhitws60-02QboOtimoiFayette County Memorial HospitalComment on above:Performed By: #### RONIT #### [facility] ([facility]) [address] [place] [address] VIRANA SCREEN W/ REFLEXon 22-27-5094NWN SCREEN W/REFLEXNegative NormalNegativeSt. Rita's HospitalComment on above:Order Comment: Result did not trigger repeat Lactate, re-order if needed.Performed By: #### LACTS #### [facility] ([facility]) [address] [place] [address] VIRAPTTon 65-34-4649sNJS Coag (PPP) [Time]28 [facility] CenterInterpretation and review of laboratory resultsNormPenn State Health SystemaPTT Coag (Bld) [Time]28 hMuhuaj74-56YlwLfpisx [place] HospitalComment on above:Performed By: #### PTT #### [facility] ([facility]) [address] [place] [address] VIRAmmoniaon 09-23-4881Oixteuv (P) [Moles/Vol]24 umol/L18 - 72 umol/LProMedica Health SystemInterpretation and review of laboratory results NormalProSumma Health Akron CampusProCrystal Clinic Orthopedic Center SystemBASIC METABOLIC PANELon 52-88-3586Irerr gap [Moles/Vol]17 mmol/LHigh5-15ProJoint Township District Memorial Hospital HospitalComment on above:Performed By: #### PINR #### [facility] ([facility]) [address] [place] [address] VIRCalcium [Mass/Vol]9.2 mg/dLNormal8.5-10.5ProMedica Bonifay HospitalComment on above:Performed By: #### PINR #### [facility] ([facility]) [address] [place] [address] VIRChloride [Moles/Vol]120 mmol/CZwcg15-714TncPgnkes [place] HospitalComment on above:Performed By: #### PINR #### [facility] ([facility]) [address] [place] [address] VIRCreatinine [Mass/Vol]7.54 mg/dLHigh0.40-1.00ProFayette County Memorial HospitalComment on above:Result Comment: METHOD TRACEABLE TO IDMS STANDARD Performed By: #### PINR #### [facility] ([facility]) [address] [place] [address] VIRGFR/1.73 sq M.predicted among non-blacks MDRD (S/P/Bld) [Vol rate/Area]6 mL/min/{1.73_m2}Low>=60ProFayette County Memorial HospitalComment on above: Result Comment: Reported eGFR is based on the CKD-EPI 2020 equation that does not use a race coefficient.Performed By: #### PINR #### [facility] ([facility]) [address] [place] [address] VIRGlucose [Mass/Vol]107 mg/iIYpqr65-02MpvSqcufh [place] HospitalComment on above:Performed By: #### PINR #### [facility] ([facility]) [address] [place] [address] VIRPotassium [Moles/Vol]4.5 mmol/LNormal3.5-5.0ProWyandot Memorial Hospitalca Bonifay HospitalComment on above:Performed By: #### PINR #### [facility] ([facility]) [address] [place] [address] VIRSodium [Moles/Vol]159 mmol/NObnr322-776PyvYhwkpk [place] HospitalComment on above:Performed By: #### PINR #### [facility] ([facility]) [address] [place] [address] VIRUrea nitrogen [Mass/Vol]81 mg/dLHigh5-23ProJoint Township District Memorial Hospital HospitalComment on above:Performed By: #### PINR #### [facility] ([facility]) [address] [place] [address] VIRBEDSIDE GLUCOSEon 49-93-5689Skqolbx [Mass/Vol]110 mg/dLHigh 65-99ProJoint Township District Memorial Hospital HospitalComment on above:Performed By: #### NUM #### [facility] ([facility]) [address] [place] [address] VIRBLOOD CULTUREon 76-30-5495Lzzuwrki identified Cx Nom (Bld) CULTURE RESULTS STAPHYLOCOCCUS, COAGULASE NEGATIVE Staphylococcus, coagulase negative Not S. Lugdunensis Possible Collection Contamination STAPHYLOCOCCUS, COAGULASE NEGATIVE Staphylococcus, coagulase negative Not S. Lugdunensis Variant Possible Collection Contamination GRAM STAIN Gram positive cocci in clustersAbnormalProWyandot Memorial Hospitalca Bonifay HospitalComment on above:Order Comment: *SIRS Criteria: (must display 2 without other explanation)- Temperature < 36 or >38-Pulse >90-Resp rate >20-WBC less than 4K or greater than 12KRepeat blood cultures not needed:-To document that a blood culture is a contaminant when 1 of 2 bottles is positive for a common contaminant (already [facility] with the culture result)-To document clearance of gram negative bacteremia in patients with suspected urinary source who are improvingSuboptimal volume of blood collected, Results may be affected.Performed By: #### NUM #### [facility] ([facility]) [address] [place] [address] VIRBacteria identified Cx Nom (Bld)CULTURE RESULTS NO GROWTH 5 DAYSNormalProWyandot Memorial Hospitalca Bonif[place] HospitalComment on above:Order Comment: *SIRS Criteria: (must display 2 without other explanation)-Temperature < 36 or >38-Pulse >90-Resp rate >20-WBC less than 4K or greater than 12KRepeat blood cultures not needed:-To document that a blood culture is a contaminant when 1 of 2 bottles is positive for a common contaminant (already listed in [facility] with the culture result)-To document clearance of gram negative bacteremia in patients with suspected urinary source who are improvingPerformed By: #### NUM #### [facility] ([facility]) [address] [place] [address] VIRBLOOD GAS, ARTERIALon 49-99-6068DIJZ,DEFICIT-8.0 mmol/LLow 0.0-2.0ProWyandot Memorial Hospitalca Bonif[place] HospitalComment on above:Performed By: #### PINR #### [facility] ([facility]) [address] [place] [address] VIRHCO3 (Bld) [Moles/Vol]16.8 mmol/LLow22.0-26.0ProWyandot Memorial Hospitalca Bonifay HospitalComment on above:Performed By: #### PINR #### [facility] ([facility]) [address] [place] [address] VIROxygen saturation in Blood95.0 %Normal>90.0ProJoint Township District Memorial Hospital HospitalComment on above:Performed By: #### PINR #### [facility] ([facility]) [address] [place] [address] VIRPCO2 NWSFENFX29.4 ioVxZrd76.0-45.0[facility] Comment on above:Performed By: #### PINR #### [facility] ([facility]) [address] [place] [address] VIRPH ARTERIAL7.262Yuyuxf1.350-7.450ProFayette County Memorial Hospital Comment on above:Performed By: #### PINR #### [facility] ([facility]) [address] [place] [address] VIRPO2 WRVLPBHE95 yrIwZvc34-421JhnDupght [place] HospitalComment on above:Performed By: #### PINR #### [facility] ([facility]) [address] [place] [address] VIRPOC WILI'S TESTPassNormalProWyandot Memorial Hospitalca [facility] HospitalComment on above:Performed By: #### PINR #### [facility] ([facility]) [address] [place] [address] VIRSAMPLE SITEL RadNormalProFayette County Memorial HospitalComment on above:Performed By: #### PINR #### [facility] ([facility]) [address] [place] [address] VIRSAMPLE TYPEARTERIALNormalProFayette County Memorial HospitalComment on above:Performed By: #### PINR #### [facility] [facility]) [address] [place] [address] VIRSOURCE OF OXYGENRoom AirNormalProFayette County Memorial Hospital Comment on above:Performed By: #### PINR #### [facility] ([facility]) [address] [place] [address] VIRBasic Metabolic Panelon 43-50-1453Kcuxg gap [Moles/Vol]17 mmol/LHigh5 - 15 mmol/LProMedspringhill medical center Health SystemCalcium [Mass/Vol]9.2 mg/dL8.5 - 10.5 mg/dLProSumma Health Akron CampusChloride [Moles/Vol]120 mmol/LHigh98 - 109 mmol/LPrHealthSouth Rehabilitation Hospital [facility] Health SystemCO2 [Moles/Vol]22 mmol/L22 - 32 mmol/[facility] SystemCreatinine [Mass/Vol]7.54 mg/dLHigh0.40 - 1.00 mg/dLRegency Hospital ToledoEGFR Non-Race Faujhcrhg6Tma- PINFPWright-Patterson Medical Center SystemGlucose [Mass/Vol]107 mg/zMLrgg71 - 99 mg/dLRegency Hospital ToledoPotassium [Moles/Vol] 4.5 mmol/L3.5 - 5.0 mmol/LProMedspringhill medical center Health SystemSodium [Moles/Vol]159 mmol/L Putk160 - 146 mmol/[facility] Health SystemUrea nitrogen [Mass/Vol]81 mg/dLHigh5 - 23 mg/dLRegency Hospital ToledoBedside Glucose *Place/Obtain serum glucose if >500 per glucometer.on 80-33-9118Zscerxy [Mass/Vol]110 mg/dWVufe15 - 99 mg/dL [facility] Hospital ToledoInterpretation and review of laboratory resultsAbnormal [facility] Children - PhiladelphiaBlood pathogens panel KELSIE+non- probe (Pos bld culture)Ordered By: Dion Shipley on 55-48-9914Vwvflkwvoipbbr and review of laboratory resultsAbnormLicking Memorial HospitalmecA/C gene PCR DetectedAbnormalNot DetectedFormerly [facility], 1928–1983taphylococcus epidermidis PCRDetectedAbnormalNot DetectedShriners Hospitals for Children - PhiladelphiaCBC WITH AUTO DIFFERENTIALon [id number] ABSOLUTE COUNT (10*3/UL) BY AUTOMATED COUNT0.1 10*3/uLNoSamaritan North Health CenterComment on above: Performed By: #### PINR #### [facility] ([facility]) [address] [place] [address] VIRBASOPHILS RELATIVE PERCENT BY AUTOMATED COUNT0.8 %Normal [facility] Rita's HospitalComment on above:Performed By: #### PINR #### [facility] ([facility]) [address] [place] [address] VIRCELLAVISION DIFFERENTIAL TYPEAUTOMATED DIFFERENTIALNormal ProMCleveland Clinic [facility]ron [facility] HospitalComment on above:Performed By: #### PINR #### [facility] ([facility]) [address] [place] [address] VIREosinophils (Bld) [#/Vol]0.3 10*3/uLNormalProMedica Bonifay HospitalComment on above:Performed By: #### PINR #### [facility] ([facility]) [address] [place] [address] VIREOSINOPHILS RELATIVE PERCENT BY AUTOMATED COUNT2.8 %Normal [facility] HospitalComment on above:Performed By: #### PINR #### [facility] ([facility]) [address] [place] [address] VIRErythrocyte distribution width (RBC) [Ratio]15.6 %High 11.5-15ProMedica Bonifay HospitalComment on above:Performed By: #### PINR #### [facility] ([facility]) [address] [place] [address] VIRHematocrit (Bld) [Volume fraction]34.9 %Udb34-39TpqBkucko Bonifay HospitalComment on above:Performed By: #### PINR #### [facility] ([facility]) [address] [place] [address] VIRHemoglobin (Bld) [Mass/Vol]11.4 g/dLLow11.7-15.5ProMedica Bonifay HospitalComment on above:Performed By: #### PINR #### [facility] ([facility]) [address] [place] [address] VIRLYMPHOCYTES ABSOLUTE COUNT (10*3/UL) BY AUTOMATED COUNT0.7 10*3/uLNormalProMedica Bonifay HospitalComment on above:Performed By: #### PINR #### [facility] ([facility]) [address] [place] [address] VIRLYMPHOCYTES RELATIVE PERCENT BY AUTOMATED COUNT7.9 %Normal [facility] [place] HospitalComment on above:Performed By: #### PINR #### [facility] ([facility]) [address] [place] [address] VIRMCH (RBC) [Entitic mass]27.0 opYjecnp45-88JfzPnbptw [place] HospitalComment on above:Performed By: #### PINR #### [facility] ([facility]) [address] [place] [address] VIRMCHC (RBC) [Mass/Vol]32.8 g/cGXxtxva33-34TqjZxzwzq [place] HospitalComment on above:Performed By: #### PINR #### [facility] ([facility]) [address] [place] [address] VIRMCV (RBC) [Entitic vol]82 mQVkqkdd45-842WibIqpwrj [place] HospitalComment on above:Performed By: #### PINR #### [facility] ([facility]) [address] [place] [address] VIRMONOCYTES ABSOLUTE COUNT (10*3/UL) BY AUTOMATED COUNT0.8 10*3/uLNormalProMedica Bonifay HospitalComment on above:Performed By: #### PINR #### [facility] ([facility]) [address] [place] [address] VIRMONOCYTES RELATIVE PERCENT BY AUTOMATED COUNT8.9 %Normal ProMedica Bonif[facility] HospitalComment on above:Performed By: #### PINR #### [facility] ([facility]) [address] [place] [address] VIRNEUTROPHILS ABSOLUTE COUNT BY AUTOMATED COUNT7.3 10*3/uL NormalProMedica [place]ano HospitalComment on above:Performed By: #### PINR #### [facility] ([facility]) [address] [place] [address] VIRNEUTROPHILS RELATIVE PERCENT BY AUTOMATED COUNT79.6 %Normal [facility] [place] HospitalComment on above:Performed By: #### PINR #### [facility] ([facility]) [address] [place] [address] VIRPlatelet mean volume (Bld) [Entitic vol]9.2 fLNormal7-12 [facility] Bonif[facility] HospitalComment on above:Performed By: #### PINR #### [facility] ([facility]) [address] [place] [address] VIRPlatelets (Bld) [#/Vol]189 10*3/oSGcsmib480-112QcbZjggjp [facility] HospitalComment on above:Performed By: #### PINR #### [facility] ([facility]) [address] [place] [address] VIRRBC COUNT4.23 X10E12/LNormal3.8-5.2[facility] Comment on above:Performed By: #### PINR #### [facility] ([facility]) [address] [place] [address] VIRWBC (Bld) [#/Vol]9.2 10*3/uLNormal4-11ProMedica [facility]if[facility] HospitalComment on above:Performed By: #### PINR #### [facility] ([facility]) [address] [place] [address] VIRBASOPHILS ABSOLUTE COUNT (10*3/UL) BY AUTOMATED COUNT0.1 10*3/uLNormalProMedica Bonifay HospitalComment on above:Performed By: #### CBCA #### [facility] ([facility]) [address] [place] [address] VIRBASOPHILS RELATIVE PERCENT BY AUTOMATED COUNT0.6 %Normal [facility] HospitalComment on above:Performed By: #### CBCA #### [facility] ([facility]) [address] [place] [address] VIRCELLAVISION DIFFERENTIAL TYPEAUTOMATED DIFFERENTIALNormal [facility] HospitalComment on above:Performed By: #### CBCA #### [facility] ([facility]) [address] [place] [address] VIREosinophils (Bld) [#/Vol]0.4 10*3/uLNormalProMedica Bonifay HospitalComment on above:Performed By: #### CBCA #### [facility] ([facility]) [address] [place] [address] VIREOSINOPHILS RELATIVE PERCENT BY AUTOMATED COUNT3.4 %Normal [facility] HospitalComment on above:Performed By: #### CBCA #### [facility] ([facility]) [address] [place] [address] VIRErythrocyte distribution width (RBC) [Ratio]15.7 %High 11.5-15ProMedica [facility]if[facility] HospitalComment on above:Performed By: #### CBCA #### [facility] ([facility]) [address] [place] [address] VIRHematocrit (Bld) [Volume fraction]34.9 %Ujk22-51TvoGgyrnt [facility] HospitalComment on above:Performed By: #### CBCA #### [facility] ([facility]) [address] [place] [address] VIRHemoglobin (Bld) [Mass/Vol]11.5 g/dLLow11.7-15.5ProMedica [facility]if[facility] HospitalComment on above:Performed By: #### CBCA #### [facility] ([facility]) [address] [place] [address] VIRLYMPHOCYTES ABSOLUTE COUNT (10*3/UL) BY AUTOMATED COUNT0.8 10*3/uLNormalProMedica Bonifay HospitalComment on above:Performed By: #### CBCA #### [facility] ([facility]) [address] [place] [address] VIRLYMPHOCYTES RELATIVE PERCENT BY AUTOMATED COUNT7.5 %Normal [facility] [place] HospitalComment on above:Performed By: #### CBCA #### [facility] ([facility]) [address] [place] [address] VIRMCH (RBC) [Entitic mass]27.7 xwQqmtra22-74OgeMycaxx [place] HospitalComment on above:Performed By: #### CBCA #### [facility] ([facility]) [address] [place] [address] VIRMCHC (RBC) [Mass/Vol]33.1 g/kEIgdeme78-71EgnFlxgst [place] HospitalComment on above:Performed By: #### CBCA #### [facility] ([facility]) [address] [place] [address] VIRMCV (RBC) [Entitic vol]84 aBNiqnzg76-288UmiFharjd [place] HospitalComment on above:Performed By: #### CBCA #### [facility] ([facility]) [address] [place] [address] VIRMONOCYTES ABSOLUTE COUNT (10*3/UL) BY AUTOMATED COUNT0.9 10*3/uLNormalProMedica [place] HospitalComment on above:Performed By: #### CBCA #### [facility] ([facility]) [address] [place] [address] VIRMONOCYTES RELATIVE PERCENT BY AUTOMATED COUNT9.2 %Normal [facility] HospitalComment on above:Performed By: #### CBCA #### [facility] ([facility]) [address] [place] [address] VIRNEUTROPHILS ABSOLUTE COUNT BY AUTOMATED COUNT8.2 10*3/uL NormalProMedica [place]ano HospitalComment on above:Performed By: #### CBCA #### [facility] ([facility]) [address] [place] [address] VIRNEUTROPHILS RELATIVE PERCENT BY AUTOMATED COUNT79.3 %Normal [facility] [place] HospitalComment on above:Performed By: #### CBCA #### [facility] ([facility]) [address] [place] [address] VIRPlatelet mean volume (Bld) [Entitic vol]9.2 fLNormal7-12 [facility] HospitalComment on above:Performed By: #### CBCA #### [facility] ([facility]) [address] [place] [address] VIRPlatelets (Bld) [#/Vol]199 10*3/tSDnctxo186-940VdpIdjaym [place] HospitalComment on above:Performed By: #### CBCA #### [facility] ([facility]) [address] [place] [address] VIRRBC COUNT4.16 X10E12/LNormal3.8-5.2PPremier Health Upper Valley Medical Center on above:Performed By: #### CBCA #### [facility] ([facility]) [address] [place] [address] VIRWBC (Bld) [#/Vol]10.3 10*3/uLNormal4-11[facility] HospitalComment on above:Performed By: #### CBCA #### [facility] ([facility]) [address] [place] [address] VIRCBC auto differentialon [id number] (Bld) [#/Vol]0.1 10*3/uLMercy Health Fairfield Hospital SystemBasophils/100 WBC (Bld)0.8 %[facility] Hospital ToledoDifferential cell count method Nom (Bld)AUTOMATED DIFFERENTIALRegency Hospital ToledoEosinophils (Bld) [#/Vol]0.3 10*3/uLMercy Health Fairfield Hospital System Eosinophils/100 WBC (Bld)2.8 %[facility] for RehabilitationedicCleveland Clinic Children's Hospital for RehabilitationErythrocyte distribution width (RBC) [Ratio]15.6 %High11.5 - 15 %[facility] SystemHematocrit (Bld) [Volume fraction]34.9 %Low35 - 47 %[facility] Hospital ToledoHemoglobin (Bld) [Mass/Vol]11.4 g/dLLow11.7 - 15.5 g/dLRegency Hospital ToledoInterpretation and review of laboratory resultsAbnormalRegency Hospital ToledoLymphocytes (Bld) [#/Vol]0.7 10*3/uLRegency Hospital ToledoLymphocytes/100 WBC (Bld)7.9 %[facility] ToledoMCH (RBC) [Entitic mass]27 pg27 - [address] Elizabeth Boardman HospitalMCHC (RBC) [Mass/Vol]32.8 g/dL32 - 36 g/dLRegency Hospital ToledoMCV (RBC) [Entitic vol]82 fL80 - 100 [facility] WestMonocytes (Bld) [#/Vol]0.8 10*3/uL [facility] ToledoMonocytes/100 WBC (Bld)8.9 %[facility] Neutrophils (Bld) [#/Vol]7.3 10*3/[facility] HospitalNeutrophils/100 WBC (Bld)79.6 %[facility] ToledoPlatelet mean volume (Bld) [Entitic vol]9.2 fL 7 - 12 [facility] WestPlatelets (Bld) [#/Vol]189 10*3/[facility] HospitalRBC (Bld) [#/Vol]4.23 10*6/[facility] HospitalWBC LM Ql (Sput)9.2PGuthrie Towanda Memorial HospitalBasophils (Bld) [#/Vol] 0.1 10*3/[facility] HospitalBasophils/100 WBC (Bld)0.6 %[facility] ToledoDifferential cell count method Nom (Bld)AUTOMATED DIFFERENTIALRegency Hospital ToledoEosinophils (Bld) [#/Vol]0.4 10*3/[facility] Eosinophils/100 WBC (Bld)3.4 %[facility] ToledoErythrocyte distribution width (RBC) [Ratio]15.7 %High11.5 - 15 %[facility] ToledoHematocrit (Bld) [Volume fraction]34.9 %Low35 - 47 %[facility] ToledoHemoglobin (Bld) [Mass/Vol]11.5 g/dLLow11.7 - 15.5 g/dLRegency Hospital ToledoInterpretation and review of laboratory resultsAbnormalRegency Hospital ToledoLymphocytes (Bld) [#/Vol]0.8 10*3/uLRegency Hospital ToledoLymphocytes/100 WBC (Bld)7.5 %[facility] ToledoMCH (RBC) [Entitic mass]27.7 pg27 - 34 [facility] MCHC (RBC) [Mass/Vol]33.1 g/dL32 - 36 g/dLRegency Hospital ToledoMCV (RBC) [Entitic vol]84 fL80 - 100 [facility] WestMonocytes (Bld) [#/Vol]0.9 10*3/uLRegency Hospital ToledoMonocytes/100 WBC (Bld)9.2 %[facility] ToledoNeutrophils (Bld) [#/Vol]8.2 10*3/uLRegency Hospital ToledoNeutrophils/100 WBC (Bld)79.3 %[facility] ToledoPlatelet mean volume (Bld) [Entitic vol] 9.2 fL7 - 12 [facility] WestPlatelets (Bld) [#/Vol]199 10*3/uL [facility] ToledoRBC (Bld) [#/Vol]4.16 10*6/uLRegency Hospital ToledoWBC LM Ql (Sput)10.3PGuthrie Towanda Memorial HospitalCK TOTALon [id number] U/MKlx54-165TadLfaoyg [place] HospitalComment on above:Performed By: #### PTT #### [facility] ([facility]) [address] [place] [address] RJJWWV26 U/QXbg37-532FqzJyiebg [place] HospitalComment on above: Performed By: #### CPK #### [facility] ([facility]) [address] [place] [address] [facility] Totalon [id number] [Catalytic activity/Vol]18 U/LLow24 - 170 U/LPrPremier Health Atrium Medical CenterCK [Catalytic activity/Vol]18 U/LLow24 - 170 U/L [facility] SystemInterpretation and review of laboratory resultsAbnormal [facility] ToledoProSumma Health Akron CampusCOMPLEMENT PROFILE (C3 AND C4)on 40-04-2411BYBPNDDVHD C3196 mg/oRPjkf32-236EauWieanyFayette County Memorial HospitalComment on above:Performed By: #### PTT #### [facility] ([facility]) [address] [place] [address] VIRCOMPLEMENT C442 mg/rXMyghju15-18WvlRdijdnUniversity Hospitals Portage Medical Center on above:Performed By: #### PTT #### [facility] ([facility]) [address] [place] [address] VIRCOMPREHENSIVE METABOLIC PANELon 32-99-9768Vzztogb [Mass/Vol] 3.4 g/dLNormal3.2-5.3PUniversity Hospitals Elyria Medical CenterComment on above:Performed By: #### CMP #### [facility] ([facility]) [address] [place] [address] VIRALP [Catalytic activity/Vol]73 U/BKywili12-133AygIgrxwr [place] HospitalComment on above:Performed By: #### CMP #### [facility] ([facility]) [address] [place] [address] VIRALT [Catalytic activity/Vol]4 U/LNormal<=31PUniversity Hospitals Elyria Medical CenterComment on above:Performed By: #### CMP #### [facility] ([facility]) [address] [place] [address] VIRAnion gap [Moles/Vol]17 mmol/LHigh5-15ProFayette County Memorial HospitalComment on above:Performed By: #### CMP #### [facility] ([facility]) [address] [place] [address] VIRAST [Catalytic activity/Vol]8 U/LNormal<=41ProJoint Township District Memorial Hospital HospitalComment on above:Performed By: #### CMP #### [facility] ([facility]) [address] [place] [address] VIRBilirubin [Mass/Vol]0.4 mg/dLNormal0.3-1.2PUniversity Hospitals Elyria Medical CenterComment on above:Performed By: #### CMP #### [facility] ([facility]) [address] [place] [address] VIRCalcium [Mass/Vol]9.3 mg/dLNormal8.5-10.5PCommunity [facility] HospitalComment on above:Performed By: #### CMP #### [facility] ([facility]) [address] [place] [address] VIRChloride [Moles/Vol]120 mmol/UOhlp01-911VjaDeqbszFayette County Memorial HospitalComment on above:Performed By: #### CMP #### [facility] ([facility]) [address] [place] [address] VIRCO2 [Moles/Vol]14 mmol/MSgu47-31IlbVwddomUniversity Hospitals Elyria Medical Center Comment on above:Performed By: #### CMP #### [facility] ([facility]) [address] [place] [address] VIRCreatinine [Mass/Vol]9.65 mg/dLHigh0.40-1.00ProFayette County Memorial HospitalComment on above:Result Comment: METHOD TRACEABLE TO IDMS STANDARD Performed By: #### CMP #### [facility] ([facility]) [address] [place] [address] VIRGFR/1.73 sq M.predicted among non-blacks MDRD (S/P/Bld) [Vol rate/Area]4 mL/min/{1.73_m2}Low>=60ProFayette County Memorial HospitalComment on above: Result Comment: Reported eGFR is based on the CKD-EPI 2020 equation that does not use a race coefficient.Performed By: #### CMP #### [facility] ([facility]) [address] [place] [address] VIRGlucose [Mass/Vol]103 mg/yAHstr11-03XvcRqbqvh [place] HospitalComment on above:Performed By: #### CMP #### [facility] ([facility]) [address] [place] [address] VIRPotassium [Moles/Vol]4.6 mmol/LNormal3.5-5.0ProJoint Township District Memorial Hospital HospitalComment on above:Performed By: #### CMP #### [facility] ([facility]) [address] [place] [address] VIRProtein [Mass/Vol]6.8 g/dLNormal6.0-8.0ProJoint Township District Memorial Hospital HospitalComment on above:Performed By: #### CMP #### [facility] ([facility]) [address] [place] [address] VIRSodium [Moles/Vol]151 mmol/QOpxf409-545EtaWwublx [place] HospitalComment on above:Performed By: #### CMP #### [facility] ([facility]) [address] [place] [address] VIRUrea nitrogen [Mass/Vol]91 mg/dLHigh5-23ProJoint Township District Memorial Hospital HospitalComment on above:Performed By: #### CMP #### [facility] ([facility]) [address] [place] [address] VIRComplement profile (C3 AND C4)on 58-72-9156Gmhfxyghiq C3 [Mass/Vol]196 mg/lYVqfl39 - 184 mg/dLProMedica Kindred Healthcare SystemComplement C4 [Mass/Vol]42 mg/dL16 - 47 mg/dLProMedica Kindred Healthcare SystemComprehensive metabolic panelon 69-25-1046Oqvgnad [Mass/Vol]3.4 g/dL3.2 - 5.3 g/dLProMedica Kindred Healthcare SystemALP [Catalytic activity/Vol]73 U/L39 - 130 U/LProMedica Kindred Healthcare SystemALT No additional P-5'-P [Catalytic activity/Vol]4 U/LNINF - 31 U/LProMedica Health SystemAnion gap [Moles/Vol]17 mmol/LHigh5 - 15 mmol/[facility] Health SystemAST [Catalytic activity/Vol]8 U/LNINF - 41 U/[facility] SystemBilirubin [Mass/Vol]0.4 mg/dL0.3 - 1.2 mg/dLProCrystal Clinic Orthopedic Center SystemCalcium [Mass/Vol]9.3 mg/dL8.5 - 10.5 mg/dLProCrystal Clinic Orthopedic Center SystemChloride [Moles/Vol]120 mmol/LHigh98 - 109 mmol/[facility] Health SystemCO2 [Moles/Vol]14 mmol/LLow22 - 32 mmol/L [facility] ToledoCreatinine [Mass/Vol]9.65 mg/dLHigh0.40 - 1.00 mg/dL [facility]edoEGFR Non-Race Wlhaegwtr5Avs- PINMiss[facility] Glucose [Mass/Vol]103 mg/gKYxqt27 - 99 mg/dLRegency Hospital [place] Interpretation and review of laboratory resultsAbnormalRegency Hospital [place] Potassium [Moles/Vol]4.6 mmol/L3.5 - 5.0 mmol/[facility] SystemProtein [Mass/Vol]6.8 g/dL6.0 - 8.0 g/dLFormerly [facility], 1928[facility]1983odium [Moles/Vol]151 mmol/UYnzz456 - 146 mmol/[facility] SystemUrea nitrogen [Mass/Vol]91 mg/dLHigh5 - 23 mg/dLMercy Health Fairfield Hospital SystemProCrystal Clinic [facility]opedic Center SystemECG 12 lead Ordered By: Selena Cohen on 59-13-7700CktWuxymgRegency Hospital ToledoELECTROLYTE PANELon 87-90-2131Bkxfb gap [Moles/Vol]11 mmol/LNormal5-15St. Rita's HospitalComment on above:Performed By: #### NUM #### [facility] ([facility]) [address] [place] [address] VIRChloride [Moles/Vol]119 mmol/ARjsa40-254XgfDqybalFayette County Memorial HospitalComment on above:Performed By: #### NUM #### [facility] ([facility]) [address] [place] [address] VIRCO2 [Moles/Vol]24 mmol/ZHaries95-52ZajCiyvaqUniversity Hospitals [facility] Comment on above:Performed By: #### NUM #### [facility] ([facility]) [address] [place] [address] VIRPotassium [Moles/Vol]4.3 mmol/LNormal3.5-5.0Pro[facility] Solorzano HospitalComment on above:Performed By: #### NUM #### [facility] ([facility]) [address] [place] [address] VIRSodium [Moles/Vol]154 mmol/BRrjk258-960FgmRkrner Solorzano HospitalComment on above:Performed By: #### NUM #### [facility] ([facility]) [address] [place] [address] VIRAnion gap [Moles/Vol]13 mmol/LNormal5-15ProJoint Township District Memorial Hospital HospitalComment on above:Performed By: #### NUM #### [facility] ([facility]) [address] [place] [address] VIRChloride [Moles/Vol]118 mmol/LXjin96-716SijFcimlz Bonifay HospitalComment on above:Performed By: #### NUM #### [facility] ([facility]) [address] [place] [address] VIRCO2 [Moles/Vol]21 mmol/WSbk93-47WmxBmelbcUniversity Hospitals E[facility] Comment on above:Performed By: #### NUM #### [facility] ([facility]) [address] [place] [address] VIRPotassium [Moles/Vol]4.5 mmol/LNormal3.5-5.0ProWyandot Memorial Hospitalca Solorzano HospitalComment on above:Performed By: #### NUM #### [facility] ([facility]) [address] [place] [address] VIRSodium [Moles/Vol]152 mmol/XPlcz229-542KvlDujnny Solorzano HospitalComment on above:Performed By: #### NUM #### [facility] ([facility]) [address] [place] [address] VIRAnion gap [Moles/Vol]15 mmol/LNormal5-15ProMedica Bonifay HospitalComment on above:Performed By: #### PINR #### [facility] ([facility]) [address] [place] [address] VIRChloride [Moles/Vol]119 mmol/VLbkf25-114CbsRgbwrk Bon[facility]ay HospitalComment on above:Performed By: #### PINR #### [facility] ([facility]) [address] [place] [address] VIRCO2 [Moles/Vol]22 mmol/ZItadhm25-11WdtTesfhe [facility] Comment on above:Performed By: #### PINR #### [facility] ([facility]) [address] [place] [address] VIRPotassium [Moles/Vol]4.3 mmol/LNormal3.5-5.0ProWyandot Memorial Hospitalca Bonifay HospitalComment on above:Performed By: #### PINR #### [facility] ([facility]) [address] [place] [address] VIRSodium [Moles/Vol]156 mmol/ZEhff707-268SjtKxhoeg [facility] HospitalComment on above:Performed By: #### PINR #### [facility] ([facility]) [address] [place] [address] VIRElectrolyte panelon 46-24-1607Mmdmz gap [Moles/Vol]11 mmol/L 5 - 15 mmol/LProMedica Health SystemChloride [Moles/Vol]119 mmol/LHigh98 - 109 mmol/LProMedica Health SystemCO2 [Moles/Vol]24 mmol/L22 - 32 mmol/LProMedica Health SystemInterpretation and review of laboratory resultsAbnormalProMedica Health SystemPotassium [Moles/Vol]4.3 mmol/L3.5 - 5.0 mmol/LProMedica Health SystemSodium [Moles/Vol]154 mmol/YIjvo041 - 146 mmol/LProMedica Health System ProMedica Health SystemAnion gap [Moles/Vol]13 mmol/L5 - 15 mmol/LProMedica Health SystemChloride [Moles/Vol]118 mmol/LHigh98 - 109 mmol/LProMedica Health SystemCO2 [Moles/Vol]21 mmol/LLow22 - 32 mmol/LProMedica Health System Interpretation and review of laboratory resultsAbPrisma Health Greer [facility] System Potassium [Moles/Vol]4.5 mmol/L3.5 - 5.0 mmol/LProMedica Health SystemSodium [Moles/Vol]152 mmol/RRsay903 - 146 mmol/LProMedica Health SystemProMedica Health SystemAnion gap [Moles/Vol]15 mmol/L5 - 15 mmol/LProMedica Health System Chloride [Moles/Vol]119 mmol/LHigh98 - 109 mmol/LProMedica Health SystemCO2 [Moles/Vol]22 mmol/L22 - 32 mmol/LProMedica Health SystemInterpretation and review of laboratory resultsAbnoCrichton Rehabilitation Center SystemPotassium [Moles/Vol] 4.3 mmol/L3.5 - 5.0 mmol/LProMedica Health SystemSodium [Moles/Vol]156 mmol/L Umoh256 - 146 mmol/LPrNortheast Regional Medical Centerica Health SystemMercy Health Fairfield Hospital SystemExtra Urineon 50-48-6392Viyww TubeAuto ResultedRegency Hospital ToledoProCrystal Clinic Orthopedic Center System FERRITINon 90-50-3159Wvgqewus [Mass/Vol]130 ng/nIYpmewz30-258TkkKqvxlr [place] HospitalComment on above:Performed By: #### PTT #### [facility] ([facility]) [address] [place] [address] VIRFOLATEon 59-56-9321OUWQO ACID13.1 ng/mLNormal>5.8ProFayette County Memorial HospitalComment on above:Performed By: #### PTT #### [facility] ([facility]) [address] [place] [address] VIRFerritinon 66-62-8917Dtvfebxc [Mass/Vol]130 ng/mL11 - 307 ng/mLProMedica Health SystemInterpretation and review of laboratory results NormalMercy Health Fairfield Hospital SystemProCrystal Clinic Orthopedic Center SystemFolateon 22-90-6824Gyokpi [Mass/Vol]13.1 ng/mL5.8 - PINF ng/mLRegency Hospital ToledoInterpretation and review of laboratory resultsNormReading Hospital GLOMERULAR BASEMENT MEMBRANE IGG ABon 35-10-0254WAG IGG AB<^0.2Normal<1.[address] Rita's HospitalComment on above:Performed By: #### LACTS #### [facility] ([facility]) [address] [place] [address] VIRGas panel (BldA)on 76-19-9195Hzynrbmn patency Wrist artery --pre arterial puncturePassMercy Health Fairfield Hospital SystemBase deficit (Bld) [Moles/Vol] -8 mmol/LLow0.0 - 2.0 mmol/LProMedNationwide Children's Hospital SystemCO2 (Bld) [Partial pressure] 29.4 mm[Hg][facility] SystemHCO3 (Bld) [Moles/Vol]16.8 mmol/LLow22.0 - 26.0 mmol/LPrHealthSouth Rehabilitation Hospital [facility]leton Health SystemInterpretation and review of laboratory resultsAbnormPenn State Health SystemOxygen (Bld) [Partial pressure]78 mm[Hg] LowMercy Health Fairfield Hospital SystemOxygen therapy source and amount [CARE]Room Air [facility] SystempH (Bld)7.364 [pH]7.350 - 7.450[facility] System Specimen site NarrativeL RadMercy Health Fairfield Hospital SystemSpecimen type Nom (Spec) ARTERIALProBlack River Memorial Hospital SystemHEMOGLOBIN A1Con 17-00-2150Jspfbqg [Mass/Vol]108 mg/dLNoSamaritan North Health CenterComment on above:Performed By: #### PINR #### [facility] ([facility]) [address] [place] [address] ZIYSbO4l (Bld) [Mass fraction]5.4 %Normal4.4-5.6St. Rita's HospitalComment on above:Result Comment: ADA Guidelines Result HgbA1c Normal : less than 5.7 % Prediabetes : 5.7 % to 6.4 % Diabetes : > 6.4 % Use with caution in patients with abnormal hemoglobin variants as the half-life of red blood cells and in vivo glycation rates are affected.Performed By: #### PINR #### [facility] ([facility]) [address] [place] [address] VIRHemoglobin A1con 64-77-5569Drszkyg glucose Estimated from glycated hemoglobin (Bld) [Mass/Vol]108 mg/dLRegency Hospital ToledoHbA1c (Bld) [Mass fraction]5.4 %4.4 - 5.6 %[facility] IRON AND TIBCon 48-94-0395Lipg [Mass/Vol]56 ug/eLPfoquk07-505DfuPvthwb [facility] HospitalComment on above:Performed By: #### PTT #### [facility] ([facility]) [address] [place] [address] VIRIRON OHCDEYK303 ug/fKJkrnou929-562AhyQgpbgb [facility] Comment on above:Performed By: #### PTT #### [facility] ([facility]) [address] [place] [address] VIRIRON VOQCFREGJG37 % GYNPTJYOZDMympwd83-00CadNocxrh [facility] HospitalComment on above:Performed By: #### PTT #### [facility] ([facility]) [address] [place] [address] VIRTransferrin [Mass/Vol]221 mg/lRVwizal130-155BrrUdeijs [facility] HospitalComment on above:Performed By: #### PTT #### [facility] ([facility]) [address] [place] [address] VIRIron and TIBCon 79-33-8789Gdagnpbqnijmlp and review of laboratory resultsNormalProSumma Health Akron CampusIron [Mass/Vol]56 ug/dL50 - 170 ug/dLRegency Hospital ToledoIron binding capacity [Mass/Vol]309 ug/dL250 - 425 ug/dLMercy Health Fairfield Hospital SystemIron saturation [Mass fraction]18ProCrystal Clinic Orthopedic Center SystemTransferrin [Mass or moles/Vol]221 mg/dL168 - 336 mg/dLProRmc [facility] Hospital Health SystemProRmc [facility] Health SystemLACTATE W/ REFLEXon 55-40-7964LLMCVXD W/REFLEX0.7 mmol/LNormal0.4-2.0ProFayette County Memorial HospitalComment on above:Order Comment: Result did not trigger repeat Lactate, re-order if needed.Performed By: #### LACTS #### [facility] ([facility]) [address] [place] [address] VIRLaboratory - Chemistry and Chemistry - challengeon 36-53-8290Ypavajreak (U) [Mass/Vol]83.54 mg/dLProCrystal Clinic Orthopedic Center SystemLactate w/ Reflexon 21-78-5597Edvqpcfelviutf and review of laboratory resultsNormal ProMclay county hospital Health SystemLactate (P nadine) [Moles/Vol]0.7 mmol/L0.4 - 2.0 mmol/L ProMedicMercy Hospital of Coon Rapids SystemProCrystal Clinic Orthopedic Center SystemProCrystal Clinic Orthopedic Center SystemMAGNESIUMon 47-31-4401Nkhrjhyqh [Mass/Vol]2.4 mg/dLNormal1.8-2.6[facility] Comment on above:Performed By: #### PINR #### [facility] ([facility]) [address] [place] [address] VIRMYELOPEROXIDASE ABon 41-52-4245JTPDNYEZGYZVXAI AB<^0.2Normal <1.0ProFayette County Memorial HospitalComment on above:Performed By: #### LACTS #### [facility] ([facility]) [address] [place] [address] VIRMYOGLOBIN, SERUMon 21-61-0464CRBFJ ZQARUFHNH22.4 ng/mLNormal 14.3-65.8ProFayette County Memorial HospitalComment on above:Performed By: #### PINR #### [facility] ([facility]) [address] [place] [address] VIRMagnesiumon 85-62-7818Olkfagrxf [Mass/Vol]2.4 mg/dL1.8 - 2.6 mg/dLProSumma Health Akron CampusMyoglobin, serumon 34-37-0359Lwsswgdwuvvzek and review of laboratory resultsNormalRegency Hospital ToledoMyoglobin [Mass/Vol] 33.4 ng/mL14.3 - 65.8 ng/mLProSumma Health Akron CampusProCrystal Clinic Orthopedic Center SystemNo Panel Informationon 27-50-6676Ftlepaenvyllbs and review of laboratory results NormalRegency Hospital ToledoInterpretation and review of laboratory results AbnormalProSumma Health Akron CampusProWyandot Memorial Hospitalca [facility] SystemProMedica [facility] System ProMedica [facility] SystemPHOSPHORUSon 50-66-3113Pzzpqkbqb [Mass/Vol]5.8 mg/dLHigh 2.4-4.9St. Rita's HospitalComment on above:Performed By: #### PINR #### [facility] ([facility]) [address] [place] [address] VIRPOCT NURSING URINE MACROSCOPIC UAon 63-21-6573WPLCZOBKT SORIN NegativeNormalNegativeSt. Rita's HospitalComment on above:Performed By: #### NUM #### [facility] ([facility]) [address] [place] [address] VIRBLOOD/HGB NURLargeAbnoCleveland Clinic Lutheran Hospital Comment on above:Performed By: #### NUM #### [facility] ([facility]) [address] [place] [address] VIRGLUCOSE NURNegativeNormalNegativeSt. Rita's Hospital Comment on above:Performed By: #### NUM #### [facility] ([facility]) [address] [place] [address] VIRKETONES NURNegativeNocape fear valley bladen county hospitalNegativeSt. Rita's Hospital Comment on above:Performed By: #### NUM #### [facility] ([facility]) [address] [place] [address] VIRLEUKOCYTE ESTERASE NURNegativeNormalNegativeCleveland Clinic Foundation HospitalComment on above:Performed By: #### NUM #### [facility] ([facility]) [address] [place] [address] VIRNITRITE NURNegativeNormalNegativeProJoint Township District Memorial Hospital Hospital Comment on above:Performed By: #### NUM #### [facility] ([facility]) [address] [place] [address] VIRPH NUR5.9Dnwqxv2.0, 6.0, 6.5, 7.0, 7.5, 8.0, 8.5, 5.5 ProMedica Bonifay HospitalComment on above:Performed By: #### NUM #### [facility] ([facility]) [address] [place] [address] VIRPROTEIN RRG873 mg/dLAbnormalNegativeProJoint Township District Memorial Hospital HospitalComment on above:Performed By: #### NUM #### [facility] ([facility]) [address] [place] [address] VIRSPECIFIC GRAVITY NUR1.701Inoift5.010, 1.015, 1.020, 1.025 [facility] HospitalComment on above:Performed By: #### NUM #### [facility] ([facility]) [address] [place] [address] VIRUROBILINOGEN NUR0.2 E.U./dLNormal0.2 E.U./dL, 1.0 E.U./dL [facility] HospitalComment on above:Performed By: #### NUM #### [facility] ([facility]) [address] [place] [address] VIRPOCT Nursing Urine Macroscopic UAon 48-80-5623Zajcctjon Ql (U)NegativeNegativeProMedica Health SystemGlucose [Mass/Vol]NegativeNegative [facility] SystemHemoglobin Ql (U)LargeAbnormalNegativeProMedica Health SystemInterpretation and review of laboratory resultsAbnormalProMedica Health SystemKetones (U) [Mass/Vol]NegativeNegativeProMedica Health SystemLeukocyte esterase Test strip Ql (U)NegativeNegativeMercy Health Fairfield Hospital SystemNitrite Ql (U) NegativeNegativeMercy Health Fairfield Hospital SystempH (U)5.5 [pH]5.0, 6.0, 6.5, 7.0, 7.5, 8.0, 8.5, 5.5ProMedica [facility] SystemProtein Ql (U)100 mg/dLAbnormalNegative [facility] SystemSpecific gravity (U) [Rel density]1.0201.010, 1.015, 1.020, 1.025Regency Hospital ToledoUrobilinogen Qn (U)0.346192976 {Mirza'U}/dL 0.2 E.U./dL, 1.0 E.U./dLShriners Hospitals for Children - Philadelphia PROCALCITONINon 36-63-2164BMUNNFJJHJBOZ2.12 ng/mLHigh<0.05St. Rita's HospitalComment on above:Order Comment: <0.50 ng/mL - Low risk of severe sepsis and/or septic shock.<2.00 ng/mL - Recommend retesting within 6-24 hours.>2.00 ng/mL - High risk of sepsis and/or septic shock.Performed By: #### PTT #### [facility] ([facility]) [address] [place] [address] VIRPROTEIN CREAT RATIOon 09-19-2024U/PRO/ASP NET DEVELOPER RATIO CALC1.62High <=0.20St. Rita's HospitalComcorewell health ludington hospital on above:Order Comment: Nephrotic Syndrome is associated with ratios >3.5Performed By: #### PINR #### [facility] ([facility]) [address] [place] [address] VIRURINE PROTEIN, RANDOM (MG/L)1350 mg/LHigh<120ProFayette County Memorial HospitalComcorewell health ludington hospital on above:Order Comment: Nephrotic Syndrome is associated with ratios >3.5Performed By: #### PINR #### [facility] ([facility]) [address] [place] [address] VIRPROTEINASE 3 AB PR3on 55-59-9140QWFXDZHNDF 3 IGG AB<^0.2 Normal<1.0St. Rita's HospitalComment on above:Performed By: #### LACTS #### [facility] ([facility]) [address] [place] [address] VIRPROTIME AND INRon 65-30-5583PJB4.4Vhivqh5.9-1.2PUniversity Hospitals Elyria Medical CenterComment on above:Performed By: #### PINR #### [facility] ([facility]) [address] [place] [address] VIRPT Coag (PPP) [Time]14.0 sHigh9.8-13.2PUniversity Hospitals Elyria Medical CenterComment on above:Performed By: #### PINR #### [facility] ([facility]) [address] [place] [address] VIRPhosphoruson 69-81-7539Vmshslhfz [Mass/Vol]5.8 mg/dLHigh2.4 - 4.9 mg/dLMercy Health Fairfield Hospital SystemProcalcitoninon 50-26-6415Yoytfbspwetjt IA [Mass/Vol]0.12 ng/mLHighNINF - 0.05 ng/mLAurora Medical Center in Summit SystemProtein creat ratioon 60-07-2085Vbcnodbjxvuvmv and review of laboratory resultsAbnoCrichton Rehabilitation Center SystemProtein (U) [Mass/Vol]1350 mg/LHighNINF - 120 mg/LPrSamaritan North Health Center SystemProtein/Creatinine (U) [Ratio]1.62HighNINF - 0.20 [facility] SystemProtime & INRon 38-20-8582LMN Coag (Platelet poor plasma or blood) [Relative time]1.20.9 - 1.2PWright-Patterson Medical Center SystemInterpretation and review of laboratory resultsAbnormLicking Memorial HospitalPT Coag (PPP) [Time]14 sHigECU Health Roanoke-Chowan HospitalODIUM, URINE, RANDOMon 77-91-1625Lryfxy (U) [Moles/Vol]69 mmol/LNormalSt. Rita's HospitalComment on above:Performed By: #### UNAR #### [facility] ([facility]) [address] [place] [address] VIRSodium, urine, randomon 47-52-9370Aqhark (U) [Moles/Vol]69 mmol/LPrSamaritan North Health Center SystemTHYROID PROFILE INCLUDES TSH FT4on 37-63-8584Paau T4 [Mass/Vol]0.86 ng/dLNormal0.61-1.60ProFayette County Memorial HospitalComment on above: Performed By: #### PTT #### [facility] ([facility]) [address] [place] [address] VIRTSH2.80 uIU/mLNormal0.49-4.67ProFayette County Memorial Hospital Comment on above:Performed By: #### PTT #### [facility] ([facility]) [address] [place] [address] VIRTROP I, HIGH SENSITIVITY 1 HOURon 87-32-9039SCQWGQBG I, HIGH PYQOIBSGKOH02 ng/LNormal<16ProJoint Township District Memorial Hospital HospitalComment on above:Performed By: #### TNIHS1 #### [facility] ([facility]) [address] [place] [address] VIRTROPONIN I, HIGH SENSITIVITY 0 HOURon 20-29-2991QNXZKDPE I, HIGH DYBJDJVGZGN09 ng/LNormal<16ProFayette County Memorial HospitalComment on above: Performed By: #### PINR #### [facility] ([facility]) [address] [place] [address] VIRThyroid profile includes TSH FT4on 78-48-2284Bzyo T4 [Mass/Vol]0.86 ng/dL0.61 - 1.60 ng/dLRegency Hospital ToledoTS Qn2.8 m[IU]/L [facility] Hospital ToledoTroponin I, High Sensitivity 0 Houron 09-19-2024 Interpretation and review of laboratory resultsNormalProSumma Health [facility] Campus Troponin I.cardiac High sensitivity method [Mass/Vol]11 ng/LNINF - 16 ng/L ProMedica Levi HospitalTroponin I, High Sensitivity 1 Houron 51-42-1957Hjvlbrfqiflugw and review of laboratory resultsNormalRegency Hospital ToledoTroponin I.cardiac High sensitivity method [Mass/Vol]10 ng/LNINF - 16 ng/LProMedica Levi HospitalURINALYSISon 09-19-2024 Bilirubin Ql (U)NegativeNormalNegativeSt. Rita's HospitalComment on above: Order Comment: Urine received without preservative. Delays in transport may affect results. Interpret with caution. A clinical correlation is recommended. Performed By: #### PTT #### [facility] ([facility]) [address] [place] [address] VIRBLOOD/HGBModerateAbnormalNegativeSt. Rita's Hospital Comment on above:Order Comment: Urine received without preservative. Delays in transport may affect results. Interpret with caution. A clinical correlation is recommended.Performed By: #### PTT #### [facility] ([facility]) [address] [place] [address] VIRColor (U)ColorlessNormalYellow, ColorlessProWyandot Memorial Hospitalca Bonifay HospitalComment on above:Order Comment: Urine received without preservative. Delays in transport may affect results. Interpret with caution. A clinical correlation is recommended.Performed By: #### PTT #### [facility] ([facility]) [address] [place] [address] VIRGlucose Ql (U)NegativeNormalNegativeSt. Rita's HospitalComment on above:Order Comment: Urine received without preservative. Delays in transport may affect results. Interpret with caution. A clinical correlation is recommended.Performed By: #### PTT #### [facility] ([facility]) [address] [place] [address] VIRKetones Ql (U)NegativeNormalNegativeCleveland Clinic Foundation HospitalComment on above:Order Comment: Urine received without preservative. Delays in transport may affect results. Interpret with caution. A clinical correlation is recommended.Performed By: #### PTT #### [facility] ([facility]) [address] [place] [address] VIRLeukocyte esterase Test strip Ql (U)SmallAbnormalNegative [facility] HospitalComcorewell health ludington hospital on above:Order Comment: Urine received without preservative. Delays in transport may affect results. Interpret with caution. A clinical correlation is recommended.Performed By: #### PTT #### [facility] ([facility]) [address] [place] [address] VIRMUCOUSPresentAbnormalNonePUniversity Hospitals Elyria Medical CenterComcorewell health ludington hospital on above:Order Comment: Urine received without preservative. Delays in transport may affect results. Interpret with caution. A clinical correlation is recommended.Performed By: #### PTT #### [facility] ([facility]) [address] [place] [address] VIRNitrite Ql (U)NegativeNormalNegativeSt. Rita's HospitalComcorewell health ludington hospital on above:Order Comment: Urine received without preservative. Delays in transport may affect results. Interpret with caution. A clinical correlation is recommended.Performed By: #### PTT #### [facility] ([facility]) [address] [place] [address] VIRPH,URINE5.4Vwbqtk8.0-8.5PUniversity Hospitals Elyria Medical CenterComcorewell health ludington hospital on above:Order Comment: Urine received without preservative. Delays in transport may affect results. Interpret with caution. A clinical correlation is recommended.Performed By: #### PTT #### [facility] ([facility]) [address] [place] [address] VIRProtein Ql (U)70 mg/dLAbnormalNegativeSt. Rita's HospitalComcorewell health ludington hospital on above:Order Comment: Urine received without preservative. Delays in transport may affect results. Interpret with caution. A clinical correlation is recommended.Performed By: #### PTT #### [facility] ([facility]) [address] [place] [address] VIRR.B.JECZF68Esld2-5YoqCcgsquUniversity Hospitals Elyria Medical CenterComment on above: Order Comment: Urine received without preservative. Delays in transport may affect results. Interpret with caution. A clinical correlation is recommended. Performed By: #### PTT #### [facility] ([facility]) [address] [place] [address] VIRSpecific gravity (U) [Rel density]1.860Mokmwx2.003-1.035 [facility] Mari[facility] Memorial HospitalComment on above:Order Comment: Urine received without preservative. Delays in transport may affect results. Interpret with caution. A clinical correlation is recommended.Performed By: #### PTT #### [facility] ([facility]) [address] [place] [address] VIRSQUAMOUS BFICFGRPVS4Yjyqhv8-8OkgCffyez [facility] Comment on above:Order Comment: Urine received without preservative. Delays in transport may affect results. Interpret with caution. A clinical correlation is recommended.Performed By: #### PTT #### [facility] ([facility]) [address] [place] [address]859 VIRTURBIDITYHazyAbnormalClearPUniversity Hospitals Elyria Medical CenterComment on above:Order Comment: Urine received without preservative. Delays in transport may affect results. Interpret with caution. A clinical correlation is recommended.Performed By: #### PTT #### [facility] ([facility]) [address] [place] [address]84 VIRUROBILINOGEN<1.1 eu/dLNormal<1.1 eu/dLProMedica Memorial Health System Marietta Memorial HospitalComment on above:Order Comment: Urine received without preservative. Delays in transport may affect results. Interpret with caution. A clinical correlation is recommended.Performed By: #### PTT #### [facility] ([facility]) [address] [place] [address] 69283 VIRW.B.VTJPI59Jyic1-4XghXxqxkgUniversity Hospitals Elyria Medical CenterComment on above: Order Comment: Urine received without preservative. Delays in transport may affect results. Interpret with caution. A clinical correlation is recommended. Performed By: #### PTT #### [facility] ([facility]) [address] [place] [address] VIRURINE CREATININE,RANDOMon 01-72-6295LLFON CREATININE,RDM 83.54 mg/dLNormalSt. Rita's HospitalComment on above:Performed By: #### PINR #### [facility] ([facility]) [address] [place] [address] VIROrder Comment: Nephrotic Syndrome is associated with ratios >3.5US RETROPERITONEAL COMPLETEon 21-02-0565UR RETROPERITONEAL COMPLETEUS RETROPERITONEAL COMPLETE US RETROPERITONEAL COMPLETE HISTORY: Acute [...] by Mao Varner MD on 09/19/2024 6:46 AMNormalProMedica [facility] Hospital Retroperitoneumon 12-19-0728PEJPCJNDIBAsiGxosis Health SystemRadiology Study observation (narrative)[facility] RetroperitoneumOrdered By: Mao Varner on 87-25-8628LfiSxhjsfRegency Hospital Toledo Work Phone: UrinalysisOrdered By: Lexi Ewing on 09-19-2024 Bilirubin Ql (U)NegativeNegativeMercy Health Fairfield Hospital SystemColor (U)ColorlessYellow, ColorlessProCrystal Clinic Orthopedic Center SystemEpithelial cells Auto (Urine sed) [#/Area]10 - 5 [facility] ToledoGlucose (U) [Mass/Vol]NegativeNegativeRegency Hospital ToledoHemoglobin Auto test strip Ql (U)ModerateAbnormalNegativeMercy Health Fairfield Hospital SystemInterpretation and review of laboratory resultsAbnormalMercy Health Fairfield Hospital SystemKetones (U) [Mass/Vol]NegativeNegativeRegency Hospital ToledoLeukocyte esterase Auto test strip Ql (U)SmallAbnormalNegativeRegency Hospital ToledoMucus Ql (Urine sed)PresentAbnormalNonTrinity Health System East CampusNitrite Auto test strip Ql (U)NegativeNegativeRegency Hospital ToledopH (U)5.5 [pH]5.0 - 8.5PWright-Patterson Medical Center SystemProtein (U) [Mass/Vol]70 mg/dLAbnormalNegativeRegency Hospital ToledoRBC Auto (Urine sed) [#/Area]12Mvkv2 - 5PCount includes the Jeff Gordon Children's Hospitalpecific gravity Refractometry automated (U) [Rel density]1.0131.003 - 1.035Regency Hospital ToledoTurbidity Ql (U)HazyAbnormalClearPMercy Health St. [facility] Urobilinogen Qn (U){Mirza'U}/dL<1.1 eu/dLRegency Hospital ToledoWBC Auto (Urine sed) [#/Area]62Axjn8 - 5PWright-Patterson Medical Center SystemMercy Health Fairfield Hospital System [facility] SystemVITAMIN B12on 04-58-1939Ihnhqvbod (Vitamin B12) [Mass/Vol]517 pg/zOZnzlbk177-594AgyCkqtnz [place] HospitalComment on above: Performed By: #### PTT #### [facility] ([facility]) [address] [place] [address] VIRVitamin B12on 02-08-8950Pqjqstnjk (Vitamin B12) [Mass/Vol] 517 pg/mL180 - 914 pg/mLRegency Hospital ToledoInterpretation and review of laboratory resultsNormalShriners Hospitals for Children - PhiladelphiaALL CBC WITH AUTO DIFFon 69-97-9165WEEODEFNA ABSOLUTE AUTO0.1NOMS [facility] Basophils/100 WBC (Bld)0.7 %0.2 - 2.0 %NOMS HealthcareEosinophils/100 WBC (Bld) 2.3 %0.9 - 7.0 %[facility] SystemsErythrocyte distribution width (RBC) [Ratio]14.9 %11.0 - 15.0 %[facility] Health SystemsHematocrit (Bld) [Volume fraction]37.9 %36.0 - 48.0 %[facility] SystemsHemoglobin (Bld) [Mass/Vol]11.7 g/dLLow12.0 - 16.0 g/dLPemiscot Memorial Health SystemsIMMATURE GRANULOCYTES ABS AUTO0.05HighNOChristian HospitalImmature granulocytes/100 WBC (Bld)0.4 %0.0 - 0.5 %[facility] SystemsInterpretation and review of laboratory resultsAbnormalNOChristian HospitalLYMPHOCYTES ABSOLUTE AUTO0.8 LowNOChristian HospitalLymphocytes/100 WBC (Bld)6.3 %Low20.5 - 60.0 %[facility] MCH (RBC) [Entitic mass]27.1 pg26.7 - 34.0 pgNOChristian HospitalMCHC (RBC) [Mass/Vol]30.9 g/dL29.9 - 35.2 g/dLPemiscot Memorial Health SystemsMCV (RBC) [Entitic vol]87.7 fL 81.0 - 99.0 fLPemiscot Memorial Health SystemsMONOCYTES ABSOLUTE KRND3WhapEERI Healthcare Monocytes/100 WBC (Bld)7.5 %1.7 - 12.0 %[facility] SystemsNEUTROPHILS ABSOLUTE AUTO 10.7HighNOChristian HospitalNeutrophils/100 WBC (Bld)82.8 %High43.0 - 75.0 %[facility] Health SystemsPlatelet mean volume (Bld) [Entitic vol]11.5 fL9.5 - 13.5 fLNOChristian HospitalTBH EO #0.3NOMS HealthcareTB FWE065HDDU Mercy Memorial HospitalTB RBC4.32NOMS Mercy Memorial HospitalTB WBC12.9HighNOCA HealthcareCLINISYNCNOMS HealthcareCBC AND AUTO DIFFon 14-90-8470FTSDANAK BASOPHIL0.1 X10E9/LNormal0.0-0.2ProMedica Baton Rouge HospitalComment on above:Performed By: #### CBCA, CMP, 7-6, 54529-5, 10792-3, 51046-7, PINR, 77567-3, 2639-3 #### [facility] ([id number]) [address] [place] [address] 22726TDUDRKTD NEUTROPHIL7.5 X10E9/LHigh1.5-6.6ProMemorial Hermann Cypress HospitalComment on above:Performed By: #### CBCA, CMP, 7-6, 36274-4, 10818-7, 07937-2, PINR, 03994-0, 2639-3 #### [facility] ([id number]) [address] [place] [address] 35850Eluhtgtxo/100 WBC (Bld)0.7 %[facility] Comment on above:Performed By: #### CBCA, CMP, 2156-6, 62040-1, 86326-2, 13136- 5, PINR, 69969-1, 2639-3 #### [facility] ([id number]) [address] [place] [address] [place] [address]Rtkgbyuwngj (Bld) [#/Vol]0.1 10*3/uLNormal0.0-0.4C[facility]innati VA Medical CenterComment on above:Performed By: #### CBCA, CMP, 7-6, 65486-7, 86976-3, 31897-8, PINR, 84054-5, 2639-3 #### [facility] ([id number]) [address] [place] [address] 05745Cqesxcwiomp/100 WBC (Bld)1.3 %[facility] Comment on above:Performed By: #### CBCA, CMP, 7-6, 11137-4, 99946-7, 71420- 5, PINR, 61230-0, 2639-3 #### [facility] ([id number]) [address] [place] [address] 90781Uestbsbrsrd distribution width (RBC) [Ratio]15.4 %High11.5-15.0 [facility] General HospitalComment on above:Performed By: #### CBCA, CMP, 7-6, 87927-6, 75120-2, 32976-5, PINR, 01076-3, 2639-3 #### [facility] ([id number]) [address] [place] [address] 35463Hohrrwsoda (Bld) [Volume fraction]36.0 %Wmovdg38-76LunOnnuwq [facility] General HospitalComment on above:Performed By: #### CBCA, CMP, 7-6, 99574-7, 93918-3, 43016-9, PINR, 54343-2, 2639-3 #### [facility] ([id number]) [address] [place] [address] 19654Demlqbphlr (Bld) [Mass/Vol]12.2 g/aNOlnidc67.7-15.5PKettering Health DaytonComment on above:Performed By: #### CBCA, CMP, 7-6, 89914-2, 31804-3, 51623-2, PINR, 99838-7, 2639-3 #### [facility] ([id number]) [address] [place] [address] 94350Inpdpbiizxj (Bld) [#/Vol]0.9 10*3/uLLow1.0-3.5PKettering Health DaytonComment on above:Performed By: #### CBCA, CMP, 7-6, 13540-4, 14517- 7, 17525-0, PINR, 32977-9, 2639-3 #### [facility] ([id number]) [address] [place] [address] 79418Lqtigvfkvoy/100 WBC (Bld)9.4 %NormalProMemorial Hermann Cypress Hospital Comment on above:Performed By: #### CBCA, CMP, 2157-6, 62828-9, 76994-2, 25311- 5, PINR, 78453-3, 2639-3 #### [facility] ([id number]) [address] [place] [address] 09498PHF (RBC) [Entitic mass]28.0 obTtgufw98-34QkoXutesfMemorial Hermann Cypress HospitalComment on above:Performed By: #### CBCA, CMP, 7-6, 53751-2, 12553-5, 52607-1, PINR, 57603-9, 2639-3 #### [facility] ([id number]) [address] [place] [address] 52378OKQI (RBC) [Mass/Vol]34.0 g/cYWzgopt16-99CbzSxsqypMemorial Hermann Cypress HospitalComment on above:Performed By: #### CBCA, CMP, 7-6, 09003-8, 69159-1, 97087-5, PINR, 56022-9, 2639-3 #### [facility] ([id number]) [address] [place] [address] 52381JQJ (RBC) [Entitic vol]82 nVTlkomc57-120LwdBzwhif Fremont HospitalComment on above:Performed By: #### CBCA, CMP, 7-6, 34128-2, 70114-2, 91571-3, PINR, 55004-6, 2639-3 #### [facility] ([id number]) [address] [place] [address] 86633Dzhictewx (Bld) [#/Vol]1.4 10*3/uLHigh0-0.9C[facility] Medical CenterComment on above:Performed By: #### CBCA, CMP, 2157-6, 12288-4, 35136-5, 84941-2, PINR, 23970-0, 2639-3 #### [facility] ([id number]) [address] [place] [address] 63565Kbulhzguv/100 WBC (Bld)13.8 %NormalCincinnati VA Medical Center Comment on above:Performed By: #### CBCA, CMP, 2156-6, 28190-8, 53641-8, 54981- 5, PINR, 24873-3, 2639-3 #### [facility] ([id number]) [address] [place] [address] 24955Knoddoyammx/100 WBC (Bld)74.8 %NormalCincinnati VA Medical Center Comment on above:Performed By: #### CBCA, CMP, 2156-6, 74724-8, 76576-4, 25476- 5, PINR, 16134-3, 2639-3 #### [facility] ([id number]) [address] [place] [address] 60695Asmsqzti mean volume (Bld) [Entitic vol]9.4 fLNormal7-12 [facility] CenterComment on above:Performed By: #### CBCA, CMP, 2156-6, 48287-4, 07756-4, 81021-3, PINR, 50013-4, 2639-3 #### [facility] ([id number]) [address] [place] [address] 02974Tqcjjehyj (Bld) [#/Vol]215 10*3/hGDawfdx263-333JeuIljulfCincinnati VA Medical CenterComment on above:Performed By: #### CBCA, CMP, 2156-6, 19102-0, 64476-9, 97012-2, PINR, 99563-6, 2639-3 #### [facility] ([id number]) [address] [place] [address] 32666LUO COUNT4.36 X10E12/LNormal3.80-5.20[facility] Comment on above:Performed By: #### CBCA, CMP, 2157-6, 27443-2, 94165-5, 51635- 5, PINR, 92394-4, 2639-3 #### [facility] ([id number]) [address] [place] [address] 16048SDD (Bld) [#/Vol]10.1 10*3/uLNormal4.0-11.0ProMemorial Hermann Cypress HospitalComment on above:Performed By: #### CBCA, CMP, 2157-6, 42126-6, 32095-2, 40354-6, PINR, 11754-2, 2639-3 #### [facility] ([id number]) [address] [place] [address] [place] [address]QM [Catalytic activity/Vol]on 49-22-3398PQA007 U/ZXytm13-559 ProMKaiser Permanente Medical CenterComment on above:Performed By: #### CBCA, CMP, 2157-6, 74041-3, 06424-8, 71241-1, PINR, 01518-2, 2639-3 #### [facility] ([id number]) [address] [place] [address] [place] [address]IGYATFNKMADMQ METABOLIC PANELon 38-39-4219Ccexbhx [Mass/Vol]2.6 g/dLLow3.2-5.3ProMedica [facility] General HospitalComment on above:Performed By: #### CBCA, CMP, 2157-6, 15695-2, 78421-5, 01762-7, PINR, 64948-7, 2639-3 #### [facility] ([id number]) [address] [place] [address], [place] [address]BEB [Catalytic activity/Vol]101 U/AIsboac63-906UtyKnituaMemorial Hermann Cypress HospitalComment on above:Performed By: #### CBCA, CMP, 2157-6, 04553-5, 46449-7, 24581-2, PINR, 23565-4, 2639-3 #### [facility] ([id number]) [address] [place] [address] 53928OAE [Catalytic activity/Vol]34 U/LHigh0-31PKettering Health DaytonComment on above:Performed By: #### YULIANA, CMP, 7-6, 51861-3, 02432-2, 21208-9, PINR, 05066-1, 2639-3 #### [facility] ([id number]) [address] [place] [address] 83095Gfzfv gap [Moles/Vol]11 mmol/LNormal5-15ProMemorial Hermann Cypress HospitalComment on above:Performed By: #### YULIANA, CMP, 7-6, 26338-4, 21741-6, 13171-4, PINR, 62518-8, 2639-3 #### [facility] ([id number]) [address] [place] [address] 31657BCV [Catalytic activity/Vol]32 U/LNormal0-41ProMemorial Hermann Cypress HospitalComment on above:Performed By: #### YULIANA, CMP, 7-6, 92995-4, 20337-4, 15940-4, PINR, 51724-3, 2639-3 #### [facility] ([id number]) [address] [place] [address] 21761Hdpyrhqkf [Mass/Vol]0.5 mg/dLNormal0.3-1.2PKettering Health DaytonComment on above:Performed By: #### CBCA, CMP, 7-6, 25294-8, 50553-0, 76608-3, PINR, 79745-0, 2639-3 #### [facility] ([id number]) [address] [place] [address] 41825Synbdva [Mass/Vol]8.5 mg/dLNormal8.5-10.5PKettering Health DaytonComment on above:Performed By: #### CBCA, CMP, 2157-6, 97046-1, 63648-6, 71715-9, PINR, 67907-9, 2639-3 #### [facility] ([id number]) [address] [place] [address], [place] [address]Awriccqi [Moles/Vol]106 mmol/BIzzhdl33-272FgoKtqympMemorial Hermann Cypress HospitalComment on above:Performed By: #### CBCA, CMP, 7-6, 30534-3, 90015-0, 96862-9, PINR, 64108-5, 2639-3 #### [facility] ([id number]) [address] [place] [address] 06041UQ0 [Moles/Vol]24 mmol/KPfslft24-56YfzFmgwxsKettering Health Dayton Comment on above:Performed By: #### YULIANA, CMP, 7-6, 87238-6, 88804-0, 10886- 5, PINR, 43368-6, 2639-3 #### [facility] ([id number]) [address] [place] [address] 35089Etdktvsusk [Mass/Vol]0.87 mg/dLNormal0.40-1.00C[facility] Medical CenterComment on above:Result Comment: METHOD TRACEABLE TO IDMS STANDARD Performed By: #### CBCA, CMP, 7-6, 38731-5, 40738-6, 83396-2, PINR, 40214-4, 2639-3 #### [facility] ([id number]) [address] [place] [address] 25126AHO/1.73 sq M.predicted among non-blacks MDRD (S/P/Bld) [Vol rate/Area]78 mL/min/{1.73_m2}Normal>59ProMemorial Hermann Cypress HospitalComment on above:Result Comment: Reported eGFR is based on the CKD-EPI 2020 equation that does not use a race coefficient.Performed By: #### ELLIOTTA, CMP, 7-6, 10560-8, 45313- 7, 14742-7, PINR, 29293-2, 2639-3 #### [facility] ([id number]) [address] [place] [address] 59616Sbligld [Mass/Vol]108 mg/eZSeoh16-51RaiMcouaiMemorial Hermann Cypress Hospital Comment on above:Performed By: #### ELLIOTTA, CMP, 2156-6, 08276-0, 56850-9, 53007- 5, PINR, 70396-8, 2639-3 #### [facility] ([id number]) [address] [place] [address] 23905Zlgczmzvg [Moles/Vol]4.1 mmol/LNormal3.5-5.0ProMemorial Hermann Cypress HospitalComment on above:Performed By: #### YULIANA, CMP, 2156-6, 20120-2, 10447-3, 44295-7, PINR, 65881-5, 2639-3 #### [facility] ([id number]) [address] [place] [address] 20482Wtkzgmk [Mass/Vol]6.6 g/dLNormal6.0-8.0ProMemorial Hermann Cypress HospitalComment on above:Performed By: #### ELLIOTTA, CMP, 2156-6, 24917-9, 71089-9, 23209-8, PINR, 46209-4, 2639-3 #### [facility] ([id number]) [address] [place] [address] 40453Urbgpz [Moles/Vol]141 mmol/KGmukxv219-613IeeSchzbm [facility]remont HospitalComment on above:Performed By: #### CBCA, CMP, 7-6, 48840-2, 47355-5, 28760-2, PINR, 61602-9, 2639-3 #### [facility] ([id number]) [address] [place] [address] 64532Ifqg nitrogen [Mass/Vol]12 mg/dLNormal5-23ProMemorial Hermann Cypress HospitalComment on above:Performed By: #### CBCGoyo, CMP, 2157-6, 44031-1, 36087-7, 09522-2, PINR, 20711-8, 2639-3 #### [facility] ([id number]) [address] [place] [address] 64013RMLVBKBMSbc 78-69-3180Gtlqkisdw [Mass/Vol]2.0 mg/dLNormal 1.8-2.6C[facility] Medical CenterComment on above:Performed By: #### CBCGoyo, CMP, 7-6, 12892-8, 70630-9, 93634-0, PINR, 09566-4, 2639-3 #### [facility] ([id number]) [address] [place] [address] 77118Btxbydpxi [Mass/Vol]on 50-05-3972XCRYD MEKZPPBZG37.7 ng/mL Tinimq99.3-65.8ProMemorial Hermann Cypress HospitalComment on above:Performed By: #### CBCGoyo, CMP, 7-6, 23566-9, 58055-3, 59780-9, PINR, 87619-2, 2639-3 #### [facility] ([id number]) [address] [place] [address] 31158SXK AND AUTO DIFFon 08-06-4356SPZTXOZO BASOPHIL0.1 X10E9/L Normal0.0-0.2PKettering Health DaytonComment on above:Performed By: #### CBCA, CMP, 7-6, 21588-0, 48459-3, 11245-4, PINR, 38665-0, 2639-3 #### [facility] ([id number]) [address] [place] [address] 44837XIZIXEGI NEUTROPHIL7.4 X10E9/LHigh1.5-6.6ProMemorial Hermann Cypress HospitalComment on above:Performed By: #### CBCA, CMP, 7-6, 68628-9, 28339-9, 08563-3, PINR, 25312-4, 2639-3 #### [facility] ([id number]) [address] [place] [address] 26769Kvpraceuy/100 WBC (Bld)0.9 %NormalCincinnati VA Medical Center Comment on above:Performed By: #### CBCA, CMP, 2156-6, 60306-5, 98301-6, 51802- 5, PINR, 09403-2, 2639-3 #### [facility] ([id number]) [address] [place] [address] 66862Njmxrrcrxqv (Bld) [#/Vol]0.1 10*3/uLNormal0.0-0.4C[facility] VA Medical CenterComment on above:Performed By: #### CBCA, CMP, 2156-6, 62486-1, 17220-3, 05081-3, PINR, 75014-2, 2639-3 #### [facility] ([id number]) [address] [place] [address] 47699Qcdutvisvqu/100 WBC (Bld)1.4 %NormalCincinnati VA Medical Center Comment on above:Performed By: #### CBCA, CMP, 2156-6, 16632-6, 61751-9, 72524- 5, PINR, 05405-9, 2639-3 #### [facility] ([id number]) [address] [place] [address], [place] [address]Vwlriuqezzv distribution width (RBC) [Ratio]15.8 %High11.5-15.0 ProMKaiser Permanente Medical CenterComment on above:Performed By: #### CBCA, CMP, 2156-6, 19586-7, 77329-0, 37272-0, PINR, 53796-1, 2639-3 #### [facility] ([id number]) [address] [place] [address] 67015Dlpbylainh (Bld) [Volume fraction]35.7 %Frrssy36-87ApqUazocmMemorial Hermann Cypress HospitalComment on above:Performed By: #### CBCA, CMP, 7-6, 00374-7, 63689-4, 84722-4, PINR, 84558-5, 2639-3 #### [facility] ([id number]) [address] [place] [address] 32540Fevzpvccvw (Bld) [Mass/Vol]12.1 g/dRQdhwdf34.7-15.5PKettering Health DaytonComment on above:Performed By: #### CBCA, CMP, 7-6, 74916-4, 20332-3, 49212-0, PINR, 91356-8, 2639-3 #### [facility] ([id number]) [address] [place] [address] 45943Inswpajnvtx (Bld) [#/Vol]0.8 10*3/uLLow1.0-3.5PKettering Health DaytonComment on above:Performed By: #### CBCA, CMP, 7-6, 02079-2, 71738- 7, 45769-0, PINR, 03918-2, 2639-3 #### [facility] ([id number]) [address] [place] [address] 84361Utrofzvigtd/100 WBC (Bld)8.5 %NormalCincinnati VA Medical Center Comment on above:Performed By: #### CBCA, CMP, 7-6, 09479-5, 05328-4, 00677- 5, PINR, 97072-2, 2639-3 #### [facility] ([id number]) [address] [place] [address] 85215MIM (RBC) [Entitic mass]28.1 udWdfftw08-59HlnXsrrcjMemorial Hermann Cypress HospitalComment on above:Performed By: #### CBCA, CMP, 2157-6, 82124-1, 92746-3, 62376-5, PINR, 85440-7, 2639-3 #### [facility] ([id number]) [address] [place] [address] 40333SNPO (RBC) [Mass/Vol]33.9 g/rTXvtipw44-50CnzNznhzqMemorial Hermann Cypress HospitalComment on above:Performed By: #### CBCA, CMP, 2157-6, 83391-4, 30631-2, 88406-9, PINR, 12263-9, 2639-3 #### [facility] ([id number]) [address] [place] [address] 95163VXH (RBC) [Entitic vol]83 vLAjjosy98-094KfmKzrmxy Fremont HospitalComment on above:Performed By: #### CBCA, CMP, 2157-6, 59747-0, 56895-2, 85672-2, PINR, 92208-3, 2639-3 #### [facility] ([id number]) [address] [place] [address] 81749Teujvasbk (Bld) [#/Vol]1.4 10*3/uLHigh0-0.9[facility] CenterComment on above:Performed By: #### CBCA, CMP, 2157-6, 87033-0, 53197-6, 86478-0, PINR, 39202-0, 2639-3 #### [facility] ([id number]) [address] [place] [address] 83853Ryspaczgp/100 WBC (Bld)14.1 %NormalProMemorial Hermann Cypress Hospital Comment on above:Performed By: #### CBCA, CMP, 2157-6, 03602-2, 63051-7, 69134- 5, PINR, 69489-9, 2639-3 #### [facility] ([id number]) [address] [place] [address] 97408Sfgonjkvjgb/100 WBC (Bld)75.1 %NormalCincinnati VA Medical Center Comment on above:Performed By: #### CBCA, CMP, 2157-6, 58204-6, 54600-4, 06171- 5, PINR, 12956-1, 2639-3 #### [facility] ([id number]) [address] [place] [address] 96750Nauglibb mean volume (Bld) [Entitic vol]10.0 fLNormal7-12 [facility] CenterComment on above:Performed By: #### CBCA, CMP, 2157-6, 50953-8, 07540-2, 35549-2, PINR, 48723-3, 2639-3 #### [facility] ([id number]) [address] [place] [address] 72272Iuouufcvz (Bld) [#/Vol]206 10*3/qYZsowvy310-227TepJkyrnhCincinnati VA Medical CenterComment on above:Performed By: #### CBCA, CMP, 2157-6, 00207-8, 11752-4, 62411-2, PINR, 41628-6, 2639-3 #### [facility] ([id number]) [address] [place] [address] 27027VOT COUNT4.31 X10E12/LNormal3.80-5.20[facility] Comment on above:Performed By: #### CBCA, CMP, 2157-6, 71358-0, 02355-6, 73511- 5, PINR, 29215-7, 2639-3 #### [facility] ([id number]) [address] [place] [address] 46978JMV (Bld) [#/Vol]9.9 10*3/uLNormal4.0-11.0ProMemorial Hermann Cypress HospitalComment on above:Performed By: #### CBCA, CMP, 2157-6, 06878-2, 76054-1, 30671-4, PINR, 06016-9, 2639-3 #### [facility] ([id number]) [address] [place] [address] 98863SW [Catalytic activity/Vol]on 48-44-0591EFA073 U/GKmse02-332 [facility] HospitalComment on above:Performed By: #### CBCA, CMP, 7-6, 10160-9, 55957-5, 39037-1, PINR, 79013-6, 2639-3 #### [facility] ([id number]) [address] [place] [address] 81022GKZ684 U/DBrtk33-158VaaZihrvyMemorial Hermann Cypress HospitalComment on above: Performed By: #### CBCA, CMP, 7-6, 18352-4, 56318-6, 61558-9, PINR, 05448-9, 2639-3 #### [facility] ([id number]) [address] [place] [address] 42269UIILHXOWMVATN METABOLIC PANELon 78-64-1342Zfkpzrq [Mass/Vol]2.5 g/dLLow3.2-5.3Pro[facility] HospitalComment on above:Performed By: #### CBCA, CMP, 7-6, 09364-8, 59156-5, 75885-0, PINR, 09372-2, 2639-3 #### [facility] ([id number]) [address] [place] [address], [place] [address]FGM [Catalytic activity/Vol]75 U/DDjhewk37-321LnyTcytphMemorial Hermann Cypress HospitalComment on above:Performed By: #### CBCA, CMP, 2157-6, 24525-5, 72055-1, 78586-7, PINR, 70569-8, 2639-3 #### [facility] ([id number]) [address] [place] [address] 12236CDC [Catalytic activity/Vol]31 U/LNormal0-31PKettering Health DaytonComment on above:Performed By: #### YULIANA, CMP, 7-6, 09482-6, 69449-6, 48507-2, PINR, 43580-9, 2639-3 #### [facility] ([id number]) [address] [place] [address] 73204Gbcuf gap [Moles/Vol]9 mmol/LNormal5-15ProMemorial Hermann Cypress HospitalComment on above:Performed By: #### YULIANA, CMP, 7-6, 94749-4, 62774-5, 75345-8, PINR, 27173-3, 2639-3 #### [facility] ([id number]) [address] [place] [address] 47895DHM [Catalytic activity/Vol]36 U/LNormal0-41ProMemorial Hermann Cypress HospitalComment on above:Performed By: #### YULIANA, CMP, 7-6, 74486-4, 55104-0, 50217-4, PINR, 50941-8, 2639-3 #### [facility] ([id number]) [address] [place] [address] 81856Qwnevgukz [Mass/Vol]0.5 mg/dLNormal0.3-1.2PKettering Health DaytonComment on above:Performed By: #### YULIANA, CMP, 7-6, 78870-6, 28938-5, 34159-1, PINR, 83927-4, 2639-3 #### [facility] ([id number]) [address] [place] [address] 71039Huhidwb [Mass/Vol]8.2 mg/dLLow8.5-10.5PKettering Health DaytonComment on above:Performed By: #### YULIANA, CMP, 7-6, 93928-4, 60642-5, 01649-3, PINR, 45713-4, 2639-3 #### [facility] ([id number]) [address] [place] [address] 89026Tqjbgpex [Moles/Vol]107 mmol/TAbcbfp94-524CyaXcadcaMemorial Hermann Cypress HospitalComment on above:Performed By: #### ELLIOTTA, CMP, 7-6, 21826-3, 88253-9, 35773-7, PINR, 89991-6, 2639-3 #### [facility] ([id number]) [address] [place] [address] 15808RU7 [Moles/Vol]24 mmol/ALesnmz97-03StvVstiboKettering Health Dayton Comment on above:Performed By: #### YULIANA, CMP, 7-6, 38283-0, 25730-8, 48961- 5, PINR, 07531-3, 2639-3 #### [facility] ([id number]) [address] [place] [address] 89252Dchanwvjxt [Mass/Vol]0.83 mg/dLNormal0.40-1.00C[facility] Medical CenterComment on above:Result Comment: METHOD TRACEABLE TO IDMS STANDARD Performed By: #### YULIANA, CMP, 7-6, 28687-7, 71035-8, 59278-2, PINR, 11253-5, 2639-3 #### [facility] ([id number]) [address] [place] [address] 93616SQP/1.73 sq M.predicted among non-blacks MDRD (S/P/Bld) [Vol rate/Area]83 mL/min/{1.73_m2}Normal>59ProMemorial Hermann Cypress HospitalComment on above:Result Comment: Reported eGFR is based on the CKD-EPI 2020 equation that does not use a race coefficient.Performed By: #### CBCA, CMP, 7-6, 07785-0, 31298- 7, 54037-0, PINR, 31832-7, 2639-3 #### [facility] ([id number]) [address] [place] [address] 24894Sjjzusl [Mass/Vol]101 mg/cTCage01-48PtrCkzgftMemorial Hermann Cypress Hospital Comment on above:Performed By: #### CBCA, CMP, 2156-6, 04349-0, 92351-0, 26531- 5, PINR, 46794-8, 2639-3 #### [facility] ([id number]) [address] [place] [address] 63950Cmycwydki [Moles/Vol]3.7 mmol/LNormal3.5-5.0ProMemorial Hermann Cypress HospitalComment on above:Performed By: #### CBCA, CMP, 2156-6, 41543-0, 86841-1, 79673-4, PINR, 93457-2, 2639-3 #### [facility] ([id number]) [address] [place] [address] 36699Aiqsbwp [Mass/Vol]6.3 g/dLNormal6.0-8.0ProMemorial Hermann Cypress HospitalComment on above:Performed By: #### CBCA, CMP, 2156-6, 77683-8, 44083-5, 14464-7, PINR, 62826-7, 2639-3 #### [facility] ([id number]) [address] [place] [address] 62037Mkjusc [Moles/Vol]140 mmol/YKfxzsh455-640XkbFsckkk [facility]remont HospitalComment on above:Performed By: #### CBCA, CMP, 7-6, 43931-4, 55531-8, 66003-4, PINR, 88322-0, 2639-3 #### [facility] ([id number]) [address] [place] [address] 12658Zneo nitrogen [Mass/Vol]8 mg/dLNormal5-23ProMemorial Hermann Cypress HospitalComment on above:Performed By: #### YULIANA, SINDY, 2156-6, 05584-5, 84031-7, 59340-5, PINR, 33413-8, 2639-3 #### [facility] ([id number]) [address] [place] [address] 45578GQMQFAIVLyn 97-00-4128Dpvccsdul [Mass/Vol]2.0 mg/dLNormal 1.8-2.6ProMemorial Hermann Cypress HospitalComment on above:Performed By: #### SINDY BRIDGES, 2156-6, 78173-6, 71574-7, 95911-2, PINR, 77738-9, 2639-3 #### [facility] ([id number]) [address] [place] [address] 48915Zhyfoxelw [Mass/Vol]on 67-63-3548PTIKC PHLPQOUBB15.5 ng/mL Ekxnsz02.3-65.8ProMemorial Hermann Cypress HospitalComment on above:Performed By: #### YULIANA, SINDY, 2156-6, 34652-7, 89151-9, 30020-4, PINR, 40180-1, 2639-3 #### [facility] ([id number]) [address] [place] [address] 91055JVFBW KQYJMQVXF23.9 ng/wIJnvwiq98.3-65.8ProMemorial Hermann Cypress HospitalComment on above:Performed By: #### YULIANA, SINDY, 2156-6, 36397-9, 24089-8, 35201-1, PINR, 91255-6, 2639-3 #### [facility] ([id number]) [address] [place] [address] 54374EBWABVXIAdj 72-20-5661Romlnvjve [Moles/Vol]4.0 mmol/LNormal 3.5-5.0ProMemorial Hermann Cypress HospitalComment on above:Performed By: #### CBCA, CMP, 2156-6, 05678-7, 29514-9, 49485-7, PINR, 14494-4, 2639-3 #### [facility] ([id number]) [address] [place] [address], [place] [address]YOV AND AUTO DIFFon 84-34-7049WSBENOSC BASOPHIL0.1 X10E9/L Normal0.0-0.2ProMedSonoma Speciality HospitalComment on above:Performed By: #### CBCA, CMP, 2156-6, 66918-7, 08147-7, 48513-4, PINR, 95668-3, 2639-3 #### [facility] ([id number]) [address] [place] [address], [place] [address]OABPZGTT NEUTROPHIL9.5 X10E9/LHigh1.5-6.6ProMemorial Hermann Cypress HospitalComment on above:Performed By: #### CBCA, CMP, 2156-6, 35666-9, 66893-8, 25132-5, PINR, 52324-0, 2639-3 #### [facility] ([id number]) [address] [place] [address], [place] [address]Iplbncqro/100 WBC (Bld)0.5 %NormalProMemorial Hermann Cypress Hospital Comment on above:Performed By: #### CBCA, CMP, 2156-6, 05160-5, 49815-9, 16026- 5, PINR, 65833-4, 2639-3 #### [facility] ([id number]) [address] [place] [address], [place] [address]Mifjephvdhu (Bld) [#/Vol]0.0 10*3/uLNormal0.0-0.4ProMemorial Hermann Cypress HospitalComment on above:Performed By: #### CBCA, CMP, 2156-6, 73019-6, 61428-2, 86865-3, PINR, 21012-9, 2639-3 #### [facility] ([id number]) [address] [place] [address] 65654Xfybjejcsyh/100 WBC (Bld)0.3 %NormalProMemorial Hermann Cypress Hospital Comment on above:Performed By: #### CBCA, CMP, 2157-6, 13560-8, 10809-0, 53822- 5, PINR, 78370-2, 2639-3 #### [facility] ([id number]) [address] [place] [address] 34968Gbcxwsbdxij distribution width (RBC) [Ratio]15.0 %Normal 11.5-15.0ProMemorial Hermann Cypress HospitalComment on above:Performed By: #### CBCA, CMP, 7-6, 21972-1, 21624-1, 11071-3, PINR, 98450-0, 2639-3 #### [facility] ([id number]) [address] [place] [address] 59500Uxxoarotlt (Bld) [Volume fraction]36.8 %Nsvsuh87-55HetWqfrxgMemorial Hermann Cypress HospitalComment on above:Performed By: #### CBCA, CMP, 7-6, 75209-0, 62679-7, 15211-5, PINR, 00838-6, 2639-3 #### [facility] ([id number]) [address] [place] [address] 39015Fphhzseyrm (Bld) [Mass/Vol]12.4 g/gHBkvdjs38.7-15.5PKettering Health DaytonComment on above:Performed By: #### CBCA, CMP, 2157-6, 00325-3, 28003-1, 57236-0, PINR, 85572-0, 2639-3 #### [facility] ([id number]) [address] [place] [address] 78266Xcfcotmiyjk (Bld) [#/Vol]0.7 10*3/uLLow1.0-3.5PKettering Health DaytonComment on above:Performed By: #### CBCA, CMP, 2157-6, 66241-3, 00054- 7, 52925-5, PINR, 67092-2, 2639-3 #### [facility] ([id number]) [address] [place] [address] 77975Gidtsyyofnz/100 WBC (Bld)5.8 %NormalProMemorial Hermann Cypress Hospital Comment on above:Performed By: #### CBCA, CMP, 7-6, 40041-2, 00029-6, 93069- 5, PINR, 28540-8, 2639-3 #### [facility] ([id number]) [address] [place] [address] 43260ABL (RBC) [Entitic mass]28.0 kpDrzput62-56BrlYkueqfMemorial Hermann Cypress HospitalComment on above:Performed By: #### CBCA, CMP, 7-6, 82267-4, 91444-8, 18817-0, PINR, 37744-2, 2639-3 #### [facility] ([id number]) [address] [place] [address] 88549JMFX (RBC) [Mass/Vol]33.6 g/mGJuefmg01-21SlqJozzlwCincinnati VA Medical CenterComment on above:Performed By: #### CBCA, CMP, 7-6, 45532-0, 08200-6, 54368-5, PINR, 75961-4, 2639-3 #### [facility] ([id number]) [address] [place] [address] 26210ABF (RBC) [Entitic vol]83 pVIxpmro96-091QhzFkenrt [facility]remont HospitalComment on above:Performed By: #### CBCA, CMP, 2157-6, 39501-4, 71832-8, 62807-5, PINR, 78925-8, 2639-3 #### [facility] ([id number]) [address] [place] [address] 65827Qqsbfpmwn (Bld) [#/Vol]1.1 10*3/uLHigh0-0.9C[facility] Medical CenterComment on above:Performed By: #### CBCA, CMP, 2157-6, 32421-6, 17649-5, 46712-7, PINR, 28910-9, 2639-3 #### [facility] ([id number]) [address] [place] [address] 05431Bhrtdtfvx/100 WBC (Bld)9.8 %NormalCincinnati VA Medical Center Comment on above:Performed By: #### CBCA, CMP, 2157-6, 92446-4, 63292-4, 52216- 5, PINR, 59393-7, 2639-3 #### [facility] ([id number]) [address] [place] [address] 01466Gqamuspzife/100 WBC (Bld)83.6 %NormalCincinnati VA Medical Center Comment on above:Performed By: #### CBCA, CMP, 2157-6, 61725-2, 09981-7, 35137- 5, PINR, 87038-0, 2639-3 #### [facility] ([id number]) [address] [place] [address] 21598Ewctkwed mean volume (Bld) [Entitic vol]9.6 fLNormal7-12 [facility] HospitalComment on above:Performed By: #### CBCA, CMP, 2157-6, 74519-4, 70897-6, 85058-8, PINR, 69316-9, 2639-3 #### [facility] ([id number]) [address] [place] [address] 80824Lvpjpixgt (Bld) [#/Vol]202 10*3/uATbptag463-764YmxUxnubs [facility] HospitalComment on above:Performed By: #### CBCA, CMP, 2157-6, 98920-7, 65527-4, 47287-7, PINR, 65685-6, 2639-3 #### [facility] ([id number]) [address] [place] [address] 12738ZOK COUNT4.41 X10E12/LNormal3.80-5.20[facility] Comment on above:Performed By: #### CBCA, CMP, 2157-6, 64978-8, 61710-5, 31341- 5, PINR, 41071-7, 2639-3 #### [facility] ([id number]) [address] [place] [address] 71292NAB (Bld) [#/Vol]11.4 10*3/uLHigh4.0-11.0C[facility] Medical CenterComment on above:Performed By: #### CBCA, CMP, 2157-6, 16921-5, 67487-0, 10611-1, PINR, 73097-7, 2639-3 #### [facility] ([id number]) [address] [place] [address] 23946LB [Catalytic activity/Vol]on 54-68-0123QEG716 U/JYewb54-894 [facility] CenterComment on above:Performed By: #### CBCA, CMP, 2157-6, 79281-1, 53767-9, 70299-4, PINR, 84170-0, 2639-3 #### [facility] ([id number]) [address] [place] [address], [place] [address]YJI129 U/QBpgw02-428FapBtrijeMemorial Hermann Cypress HospitalComment on above: Performed By: #### CBCA, CMP, 2157-6, 86755-7, 12710-6, 74570-3, PINR, 49973-7, 2639-3 #### [facility] ([id number]) [address] [place] [address] 99075DOK2560 U/SHfdq05-663MhiKgcqsnCincinnati VA Medical CenterComment on above:Performed By: #### CBCA, CMP, 2157-6, 36923-3, 92264-0, 69255-7, PINR, 06319-3, 2639-3 #### [facility] ([id number]) [address] [place] [address] 64475KWBVMNOYYCILT METABOLIC PANELon 89-05-9784Okfohyg [Mass/Vol]2.7 g/dLLow3.2-5.3PKettering Health DaytonComment on above:Performed By: #### CBCA, CMP, 2157-6, 71596-4, 93956-1, 98452-6, PINR, 11591-1, 2639-3 #### [facility] ([id number]) [address] [place] [address] 08569MMY [Catalytic activity/Vol]57 U/MLrsqlx40-888QcsQopmhpCincinnati VA Medical CenterComment on above:Performed By: #### CBCA, CMP, 7-6, 59638-3, 30883-0, 93087-2, PINR, 03733-5, 2639-3 #### [facility] ([id number]) [address] [place] [address] 82917XPG [Catalytic activity/Vol]36 U/LHigh0-31PKettering Health DaytonComment on above:Performed By: #### CBCA, CMP, 2157-6, 67830-4, 31904-5, 25450-9, PINR, 42183-1, 2639-3 #### [facility] ([id number]) [address] [place] [address] 15638Xmpra gap [Moles/Vol]11 mmol/LNormal5-15[facility] CenterComment on above:Performed By: #### CBCA, CMP, 7-6, 79993-2, 20579-8, 44554-7, PINR, 35290-0, 2639-3 #### [facility] ([id number]) [address] [place] [address] 68800DUN [Catalytic activity/Vol]52 U/LHigh0-41ProMemorial Hermann Cypress HospitalComment on above:Performed By: #### CBCA, CMP, 2156-6, 16182-5, 88844-8, 39688-3, PINR, 61853-4, 2639-3 #### [facility] ([id number]) [address] [place] [address] 75440Djzohhnou [Mass/Vol]0.6 mg/dLNormal0.3-1.2PKettering Health DaytonComment on above:Performed By: #### ELLIOTTA, CMP, 2156-6, 62228-4, 71181-7, 98771-8, PINR, 44063-9, 2639-3 #### [facility] ([id number]) [address] [place] [address] 42937Zukoadh [Mass/Vol]8.2 mg/dLLow8.5-10.5PKettering Health DaytonComment on above:Performed By: #### CBCA, CMP, 2156-6, 30801-4, 40064-2, 30432-5, PINR, 31991-4, 2639-3 #### [facility] ([id number]) [address] [place] [address] 47363Tzfiyipl [Moles/Vol]106 mmol/BDcaqre04-440LinGvrawoMemorial Hermann Cypress HospitalComment on above:Performed By: #### CBCA, CMP, 7-6, 59394-6, 37443-6, 44044-1, PINR, 05347-7, 2639-3 #### [facility] ([id number]) [address] [place] [address] 28521CY5 [Moles/Vol]21 mmol/QZvk38-62JnpYvbknlKettering Health Dayton Comment on above:Performed By: #### YULIANA, SINDY, 7-6, 22893-0, 33535-2, 79346- 5, PINR, 20475-6, 2639-3 #### [facility] ([id number]) [address] [place] [address] 13157Bykbcmfieb [Mass/Vol]0.87 mg/dLNormal0.40-1.00[facility] CenterComment on above:Result Comment: METHOD TRACEABLE TO IDMS STANDARD Performed By: #### YULIANA, SINDY, 2156-6, 56701-9, 36721-7, 91541-2, PINR, 41267-8, 2639-3 #### [facility] ([id number]) [address] [place] [address] 82291USU/1.73 sq M.predicted among non-blacks MDRD (S/P/Bld) [Vol rate/Area]78 mL/min/{1.73_m2}Normal>59[facility] CenterComment on above:Result Comment: Reported eGFR is based on the CKD-EPI 2021 equation that does not use a race coefficient.Performed By: #### YULIANA, SINDY, 2156-6, 23980-4, 06695- 7, 39864-2, PINR, 22359-3, 2639-3 #### [facility] ([id number]) [address] [place] [address] 43247Rrdvlyv [Mass/Vol]107 mg/uLPfrw43-54ElaWihhqwCincinnati VA Medical Center Comment on above:Performed By: #### YULIANA, SINDY, 2156-6, 54122-1, 53477-8, 88089- 5, PINR, 59914-6, 2639-3 #### [facility] ([id number]) [address] [place] [address], [place] [address]Ccxasddvi [Moles/Vol]3.9 mmol/LNormal3.5-5.0ProMemorial Hermann Cypress HospitalComment on above:Performed By: #### YULIANA, SINDY, 2156-6, 89228-2, 01120-9, 40840-5, PINR, 53404-1, 2639-3 #### [facility] ([id number]) [address] [place] [address] 70666Zqiilnc [Mass/Vol]6.2 g/dLNormal6.0-8.0ProMemorial Hermann Cypress HospitalComment on above:Performed By: #### YULIANA, SINDY, 2156-6, 18002-6, 66162-9, 20035-5, PINR, 88322-2, 2639-3 #### [facility] ([id number]) [address] [place] [address] 68060Dcqcun [Moles/Vol]138 mmol/NTrvcut551-295LfnFvmapr [facility] HospitalComment on above:Performed By: #### YULIANA, SINDY, 2156-6, 00944-2, 11423-6, 45521-7, PINR, 26465-7, 2639-3 #### [facility] ([id number]) [address] [place] [address] 27912Acca nitrogen [Mass/Vol]6 mg/dLNormal5-23ProMemorial Hermann Cypress HospitalComment on above:Performed By: #### YULIANA, CMP, 2156-6, 73321-4, 85330-2, 28851-0, PINR, 09023-6, 2639-3 #### [facility] ([id number]) [address] [place] [address] 30391GWZSGFAWLyc 71-74-2148Olyfwocvf [Mass/Vol]2.0 mg/dLNormal 1.8-2.6ProMemorial Hermann Cypress HospitalComment on above:Performed By: #### CBCA, CMP, 2157-6, 26917-7, 94004-1, 05093-0, PINR, 02566-7, 2639-3 #### [facility] ([id number]) [address] [place] [address] 72409Rcigikndv [Mass/Vol]on 51-21-9771ZYSVC ULNGJCXDI26.5 ng/mLHigh 14.3-65.8ProMemorial Hermann Cypress HospitalComment on above:Performed By: #### CBCA, CMP, 7-6, 48178-8, 49245-5, 34857-0, PINR, 74899-3, 2639-3 #### [facility] ([id number]) [address] [place] [address], [place] [address]JABDQ SVFBBSWXI060.2 ng/kVBecq41.3-65.8ProMemorial Hermann Cypress HospitalComment on above:Performed By: #### CBCA, CMP, 2156-6, 59062-2, 15072-7, 51447-1, PINR, 14380-5, 2639-3 #### [facility] ([id number]) [address] [place] [address], [place] 374[address]QLBHU WRNVUTAGX81.9 ng/qVLbkz68.3-65.8ProMemorial Hermann Cypress HospitalComment on above:Performed By: #### CBCA, CMP, 2156-6, 33539-9, 90224-1, 58043-0, PINR, 98615-6, 2639-3 #### [facility] ([id number]) [address] [place] [address], [place] [address]VUE AND AUTO DIFFon 98-02-2457YDLFQIDY BASOPHIL0.0 X10E9/L Normal0.0-0.2[facility] HospitalComment on above:Performed By: #### CBCA, CMP, 7-6, 32380-7, 18672-4, 07146-4, PINR, 22575-7, 2639-3 #### [facility] ([id number]) [address] [place] [address] 47981XPRPKLBH NEUTROPHIL5.8 X10E9/LNormal1.5-6.6ProMemorial Hermann Cypress HospitalComment on above:Performed By: #### CBCA, CMP, 7-6, 02593-3, 04010-3, 66969-3, PINR, 92656-6, 2639-3 #### [facility] ([id number]) [address] [place] [address] 90378Lwibcsxzx/100 WBC (Bld)0.5 %NormalCincinnati VA Medical Center Comment on above:Performed By: #### CBCA, CMP, 2156-6, 93771-9, 31006-3, 46017- 5, PINR, 03515-1, 2639-3 #### [facility] ([id number]) [address] [place] [address] 74234Hnkbililmhj (Bld) [#/Vol]0.1 10*3/uLNormal0.0-0.4[facility] CenterComment on above:Performed By: #### CBCA, CMP, 2156-6, 53871-6, 86267-3, 32682-9, PINR, 72764-8, 2639-3 #### [facility] ([id number]) [address] [place] [address] 51575Xevkrekbnvy/100 WBC (Bld)1.6 %NormalCincinnati VA Medical Center Comment on above:Performed By: #### CBCA, CMP, 2156-6, 13870-8, 31381-6, 20446- 5, PINR, 03559-4, 2639-3 #### [facility] ([id number]) [address] [place] [address] 06501Xhqltcfdgme distribution width (RBC) [Ratio]15.7 %High11.5-15.0 [facility] HospitalComment on above:Performed By: #### CBCA, CMP, 2157-6, 86879-3, 45562-3, 75403-2, PINR, 48423-4, 2639-3 #### [facility] ([id number]) [address] [place] [address] 54520Hruxlzzsbj (Bld) [Volume fraction]36.8 %Udezfn82-93KwrAekbisMemorial Hermann Cypress HospitalComment on above:Performed By: #### CBCA, CMP, 7-6, 76483-5, 17450-6, 52782-1, PINR, 10110-9, 2639-3 #### [facility] ([id number]) [address] [place] [address] 82229Fueszoxwqp (Bld) [Mass/Vol]12.3 g/nATbceof68.7-15.5PKettering Health DaytonComment on above:Performed By: #### CBCA, CMP, 7-6, 79079-9, 07525-1, 81327-2, PINR, 87966-4, 2639-3 #### [facility] ([id number]) [address] [place] [address] 09214Hqdirotjjvy (Bld) [#/Vol]0.9 10*3/uLLow1.0-3.5PKettering Health DaytonComment on above:Performed By: #### CBCA, CMP, 7-6, 64060-8, 36077- 7, 96355-9, PINR, 29795-6, 2639-3 #### [facility] ([id number]) [address] [place] [address] 79918Zzdlppdnqqi/100 WBC (Bld)11.3 %NormalDayton VA Medical Center on above:Performed By: #### CBCA, CMP, 7-6, 70428-1, 81287-4, 34973- 5, PINR, 60101-9, 2639-3 #### [facility] ([id number]) [address] [place] [address] 58886RGH (RBC) [Entitic mass]27.8 wkKuygjp38-74DdyUlhkqeMemorial Hermann Cypress HospitalComment on above:Performed By: #### CBCA, CMP, 2157-6, 58626-9, 95162-6, 04719-9, PINR, 87262-9, 2639-3 #### [facility] ([id number]) [address] [place] [address] 87441QVEP (RBC) [Mass/Vol]33.4 g/fRTuxszo15-05LarPolwneMemorial Hermann Cypress HospitalComment on above:Performed By: #### CBCA, CMP, 2157-6, 40810-3, 88634-2, 84791-4, PINR, 55356-2, 2639-3 #### [facility] ([id number]) [address] [place] [address] 14202OEZ (RBC) [Entitic vol]83 hSIbwogv15-799ScgNvekna Fremont HospitalComment on above:Performed By: #### CBCA, CMP, 2157-6, 57537-5, 31255-4, 13268-9, PINR, 42641-3, 2639-3 #### [facility] ([id number]) [address] [place] [address] 80734Omwaadpjv (Bld) [#/Vol]0.8 10*3/uLNormal0-0.9C[facility] Medical CenterComment on above:Performed By: #### CBCA, CMP, 2157-6, 95611-5, 93443-0, 54710-8, PINR, 02227-5, 2639-3 #### [facility] ([id number]) [address] [place] [address] 75241Gysjwkzso/100 WBC (Bld)10.5 %NormalProWyandot Memorial Hospitalca [facility] Comment on above:Performed By: #### CBCA, CMP, 2157-6, 17555-4, 76079-4, 27192- 5, PINR, 65466-4, 2639-3 #### [facility] ([id number]) [address] [place] [address] 90929Jnflssxnjjs/100 WBC (Bld)76.1 %NormalCincinnati VA Medical Center Comment on above:Performed By: #### CBCA, CMP, 2157-6, 72567-6, 18459-5, 42859- 5, PINR, 03418-7, 2639-3 #### [facility] ([id number]) [address] [place] [address] 14369Feovmngq mean volume (Bld) [Entitic vol]9.1 fLNormal7-12 [facility] CenterComment on above:Performed By: #### CBCA, CMP, 2157-6, 95719-0, 62567-9, 96583-5, PINR, 81864-6, 2639-3 #### [facility] ([id number]) [address] [place] [address] 54840Ycidauuhy (Bld) [#/Vol]188 10*3/jTAeqkrg053-217AdcUzleyuCincinnati VA Medical CenterComment on above:Performed By: #### CBCA, CMP, 2157-6, 22333-2, 51639-6, 17116-7, PINR, 62122-5, 2639-3 #### [facility] ([id number]) [address] [place] [address] 42037DRH COUNT4.42 X10E12/LNormal3.80-5.20[facility] Comment on above:Performed By: #### CBCA, CMP, 2157-6, 20046-3, 91324-9, 71734- 5, PINR, 95603-9, 2639-3 #### [facility] ([id number]) [address] [place] [address] 96135MFR (Bld) [#/Vol]7.7 10*3/uLNormal4.0-11.0C[facility] Medical CenterComment on above:Performed By: #### CBCA, CMP, 2157-6, 97094-0, 08904-4, 48906-2, PINR, 22360-8, 2639-3 #### [facility] ([id number]) [address] [place] [address] 33507FH [Catalytic activity/Vol]on 72-57-4173DZW9608 U/LYrdm96-349 [facility] CenterComment on above:Performed By: #### CBCA, CMP, 2157-6, 43287-5, 27798-4, 75922-2, PINR, 81687-4, 2639-3 #### [facility] ([id number]) [address] [place] [address] 26200TKM6198 U/SUfev38-816OwyKedhwvCincinnati VA Medical CenterComment on above:Performed By: #### CBCA, CMP, 2157-6, 69076-8, 72148-4, 02301-6, PINR, 12032-7, 2639-3 #### [facility] ([id number]) [address] [place] [address] [id number] U/FYeiw30-338SzgTuxwvrCincinnati VA Medical CenterComcorewell health [facility] hospital on above:Performed By: #### CBCA, CMP, 2157-6, 64781-1, 75562-2, 03416-5, PINR, 77077-5, 2639-3 #### [facility] ([id number]) [address] [place] [address] 88423EROUMSXEKCHJR METABOLIC PANELon 38-42-9659Mgmypmr [Mass/Vol]2.7 g/dLLow3.2-5.3ProMedica Baton Rouge HospitalComment on above:Performed By: #### CBCA, CMP, 7-6, 85254-0, 57677-3, 15484-5, PINR, 68642-8, 2639-3 #### [facility] ([id number]) [address] [place] [address], [place] [address]QNM [Catalytic activity/Vol]60 U/AFrrdpx05-873MjaKzlgabMemorial Hermann Cypress HospitalComment on above:Performed By: #### CBCA, CMP, 7-6, 84102-3, 28311-6, 06596-5, PINR, 95764-6, 2639-3 #### [facility] ([id number]) [address] [place] [address], [place] [address]HMX [Catalytic activity/Vol]46 U/LHigh0-31ProMedSonoma Speciality HospitalComment on above:Performed By: #### YULIANA, CMP, 2156-6, 36716-0, 96961-7, 09212-7, PINR, 19704-7, 2639-3 #### [facility] ([id number]) [address] [place] [address], [place] [address]Akjqa gap [Moles/Vol]8 mmol/LNormal5-15ProMemorial Hermann Cypress HospitalComment on above:Performed By: #### ELLIOTTA, CMP, 7-6, 43043-6, 45057-8, 09855-9, PINR, 08496-4, 2639-3 #### [facility] ([id number]) [address] [place] [address], [place] [address]RDK [Catalytic activity/Vol]94 U/LHigh0-41ProMemorial Hermann Cypress HospitalComment on above:Performed By: #### CBCA, CMP, 2157-6, 46744-1, 89197-3, 55800-5, PINR, 02353-4, 2639-3 #### [facility] ([id number]) [address] [place] [address], [place] [address]Youhdjrnr [Mass/Vol]0.5 mg/dLNormal0.3-1.2PKettering Health DaytonComment on above:Performed By: #### YULIANA, CMP, 2157-6, 30662-2, 17845-5, 77052-3, PINR, 98842-6, 2639-3 #### [facility] ([id number]) [address] [place] [address], [place] [address]Skilnmd [Mass/Vol]8.0 mg/dLLow8.5-10.5PKettering Health DaytonComment on above:Performed By: #### YULIANA, CMP, 7-6, 69655-0, 00915-9, 84568-0, PINR, 79940-8, 2639-3 #### [facility] ([id number]) [address] [place] [address], [place] [address]Gmdecfga [Moles/Vol]112 mmol/EQelr66-983NdwUwqcokMemorial Hermann Cypress HospitalComment on above:Performed By: #### YULIANA, CMP, 2156-6, 76649-5, 10218-5, 00942-5, PINR, 25622-5, 2639-3 #### [facility] ([id number]) [address] [place] [address], [place] [address]XR9 [Moles/Vol]20 mmol/PAra11-39YayGubdcbKettering Health Dayton Comment on above:Performed By: #### CBCA, CMP, 7-6, 63449-3, 02370-0, 10260- 5, PINR, 08602-2, 2639-3 #### [facility] ([id number]) [address] [place] [address], [place] [address]Srdlkzqbqo [Mass/Vol]0.86 mg/dLNormal0.40-1.00ProMemorial Hermann Cypress HospitalComment on above:Result Comment: METHOD TRACEABLE TO IDMS STANDARD Performed By: #### CBCA, CMP, 2157-6, 33155-0, 94567-1, 37320-4, PINR, 56718-7, 2639-3 #### [facility] ([id number]) [address] [place] [address] 58387QGH/1.73 sq M.predicted among non-blacks MDRD (S/P/Bld) [Vol rate/Area]79 mL/min/{1.73_m2}Normal>59ProMemorial Hermann Cypress HospitalComment on above:Result Comment: Reported eGFR is based on the CKD-EPI 1 equation that does not use a race coefficient.Performed By: #### YULIANA, SINDY, 2156-6, 70801-0, 15652- 7, 83300-2, PINR, 40871-7, 2639-3 #### [facility] ([id number]) [address] [place] [address] 82312Slrfvxi [Mass/Vol]91 mg/oQWzgqcz16-97DkaDzuqslMemorial Hermann Cypress Hospital Comment on above:Performed By: #### YULIANA, SINDY, 2156-6, 23203-9, 63937-5, 10535- 5, PINR, 97698-8, 2639-3 #### [facility] ([id number]) [address] [place] [address] 84065Xjdzoegyr [Moles/Vol]4.0 mmol/LNormal3.5-5.0ProMemorial Hermann Cypress HospitalComment on above:Performed By: #### YULIANA, SINDY, 2156-6, 02719-2, 03324-7, 40911-6, PINR, 64013-8, 2639-3 #### [facility] ([id number]) [address] [place] [address] 82071Viosogl [Mass/Vol]6.4 g/dLNormal6.0-8.0ProMemorial Hermann Cypress HospitalComment on above:Performed By: #### YULIANA, SINDY, 2156-6, 99714-2, 85846-8, 58196-6, PINR, 48488-4, 2639-3 #### [facility] ([id number]) [address] [place] [address] 51931Zqlgwu [Moles/Vol]140 mmol/MXqsatj168-363KdxUtkxkd [facility]remont HospitalComment on above:Performed By: #### CBCA, CMP, 2156-6, 84020-6, 96230-3, 67392-5, PINR, 02032-5, 2639-3 #### [facility] ([id number]) [address] [place] [address] 60386Eszl nitrogen [Mass/Vol]10 mg/dLNormal5-23ProMemorial Hermann Cypress HospitalComment on above:Performed By: #### CBCA, CMP, 2156-6, 84272-3, 36170-1, 80551-3, PINR, 12862-1, 2639-3 #### [facility] ([id number]) [address] [place] [address] 069[address]Lyjnoef.ionized (Bld) [Moles/Vol]on 13-08-1109DJYYVLXH ICA4.6 mg/dLNormal4.5-5.3ProMedica [facility]aquin General HospitalComment on above:Performed By: #### CBCA, CMP, 2156-6, 96052-8, 62682-7, 09831-2, PINR, 82608-4, 2639-3 #### [facility] ([id number]) [address] [place] [address]Zmska 1996 panelon 15-20-6019Cqbpuxjsrwc [Mass/Vol]151 mg/dL Ouuxjk637-838DzxEvmpddMemorial Hermann Cypress HospitalComment on above:Performed By: #### CBCA, CMP, 2156-6, 05681-4, 13930-5, 35232-8, PINR, 43515-8, 2639-3 #### [facility] ([id number]) [address] [place] [address] 80442Kxwjzxmgdyq in HDL [Mass/Vol]29 mg/dLLow>39ProMemorial Hermann Cypress HospitalComment on above:Result Comment: HDL <40 mg/dL - High Risk HDL > or = 40mg/dL- Desirable HDL >60 mg/dL - Negative Risk Performed By: #### YULIANA, CMP, 2157- 6, 63274-7, 28003-6, 14176-9, PINR, 47363-8, 2639-3 #### [facility] ([id number]) [address] [place] [address] 44967Ybirgvxlxzb in LDL [Mass/Vol]100 mg/dLNormal<130ProMemorial Hermann Cypress HospitalComment on above:Result Comment: LDL <100 mg/dL - Desirable LDL >160 mg/dL - High Risk Performed By: #### YULIANA, CMP, 2157- 6, 17259-7, 96710-7, 66206-2, PINR, 60231-9, 2639-3 #### [facility] ([id number]) [address] [place] [address] 54283Vzmlbrwrzzh in VLDL [Mass/Vol]22 mg/dLNormal0-30C[facility] Medical CenterComment on above:Performed By: ###Kevin BRIDGES, CMP, 2157-6, 22465-6, 22443-7, 06122-1, PINR, 32020-5, 2639-3 #### [facility] ([id number]) [address] [place] [address] 48659IKBJZPLUIBV:HDL5.2High1.0-5.0ProMemorial Hermann Cypress HospitalComment on above:Performed By: #### CBCA, CMP, 7-6, 64028-5, 74200-7, 32440-6, PINR, 75858-8, 2639-3 #### [facility] ([id number]) [address] [place] [address], [place] [address]Feircxweokck [Mass/Vol]112 mg/rNMjuhns60-786SoqXgkdqt [facility]ont HospitalComment on above:Performed By: #### CBCA, CMP, 2156-6, 10982-2, 12350-1, 47219-8, PINR, 53757-4, 2639-3 #### [facility] ([id number]) [address] [place] [address], [place] [address]ZKJPKJJJNks 53-86-1398Skfizondt [Mass/Vol]2.1 mg/dLNormal 1.8-2.6ProMemorial Hermann Cypress HospitalComment on above:Performed By: #### CBCA, CMP, 2156-6, 89556-1, 37505-9, 52139-2, PINR, 24437-8, 2639-3 #### [facility] ([id number]) [address] [place] [address], [place] [address]Ecbbqcrwg [Mass/Vol]1.9 mg/dLNormal1.8-2.6ProMemorial Hermann Cypress HospitalComment on above:Performed By: #### CBCA, CMP, 2156-6, 25860-7, 08162-9, 81573-5, PINR, 38405-6, 2639-3 #### [facility] ([id number]) [address] [place] [address], [place] [address]Obvfclpnd [Mass/Vol]on 72-84-2754YMQBT AXIQOOSGB63.4 ng/mLHigh 14.3-65.8ProMemorial Hermann Cypress HospitalComment on above:Performed By: #### CBCA, CMP, 2157-6, 12194-6, 96289-5, 60945-6, PINR, 45025-4, 2639-3 #### [facility] ([id number]) [address] [place] [address], [place] [address]RUJZY YTDCFNRNO402.3 ng/qHMxok31.3-65.8ProMemorial Hermann Cypress HospitalComment on above:Performed By: #### CBCA, CMP, 2156-6, 31390-7, 05771-5, 89660-8, PINR, 95829-4, 2639-3 #### [facility] ([id number]) [address] [place] [address] 02089WUUEN ORVTEDQWY789.0 ng/lEJtye04.3-65.8ProMemorial Hermann Cypress HospitalComment on above:Performed By: #### CBCA, CMP, 2156-6, 26992-2, 39268-9, 10921-4, PINR, 39827-7, 2639-3 #### [facility] ([id number]) [address] [place] [address], [place] [address]VZF AND AUTO DIFFon 35-83-9693NBLAJYAC BASOPHIL0.0 X10E9/L Normal0.0-0.2PKettering Health DaytonComment on above:Performed By: #### CBCA, CMP, 2156-6, 58263-2, 21656-6, 95664-4, PINR, 70647-3, 2639-3 #### [facility] ([id number]) [address] [place] [address] 62390FSGBMOTP ORRFKDSFMV53.1 X10E9/LHigh1.5-6.6ProMemorial Hermann Cypress HospitalComment on above:Performed By: #### CBCA, CMP, 2156-6, 06188-6, 61985-7, 33709-1, PINR, 80136-1, 2639-3 #### [facility] ([id number]) [address] [place] [address] 20431Tuqdbhvsn/100 WBC (Bld)0.2 %[facility] Comment on above:Performed By: #### CBCA, CMP, 2156-6, 13976-3, 82031-5, 97892- 5, PINR, 80145-7, 2639-3 #### [facility] ([id number]) [address] [place] [address] 65347Xmqvtjxfwyh (Bld) [#/Vol]0.0 10*3/uLNormal0.0-0.4C[facility] CenterComment on above:Performed By: #### CBCA, CMP, 2156-6, 38788-3, 48811-3, 32260-5, PINR, 01162-3, 2639-3 #### [facility] ([id number]) [address] [place] [address] 39513Tmakxujsrya/100 WBC (Bld)0.1 %NormalCincinnati VA Medical Center Comment on above:Performed By: #### CBCA, CMP, 2156-6, 57277-6, 08266-4, 80174- 5, PINR, 89484-8, 2639-3 #### [facility] ([id number]) [address] [place] [address] 66523Crwexqjcigx distribution width (RBC) [Ratio]15.7 %High11.5-15.0 [facility] Medical CenterComment on above:Performed By: #### CBCA, CMP, 2156-6, 83734-6, 54660-3, 74401-8, PINR, 36171-1, 2639-3 #### [facility] ([id number]) [address] [place] [address] 72585Vbvmvkvokj (Bld) [Volume fraction]40.3 %Xucukh34-01TkaGpvezjMemorial Hermann Cypress HospitalComment on above:Performed By: #### CBCA, CMP, 2157-6, 69872-5, 34487-8, 05521-2, PINR, 00563-2, 2639-3 #### [facility] ([id number]) [address] [place] [address] 62544Ikidobrsef (Bld) [Mass/Vol]13.5 g/hZPkrwln75.7-15.5PKettering Health DaytonComment on above:Performed By: #### CBCA, CMP, 2157-6, 15487-6, 24354-0, 57466-7, PINR, 41371-8, 2639-3 #### [facility] ([id number]) [address] [place] [address] 50482Tlukmqbczwv (Bld) [#/Vol]0.6 10*3/uLLow1.0-3.5PKettering Health DaytonComment on above:Performed By: #### CBCA, CMP, 2157-6, 13135-2, 48480- 7, 05335-5, PINR, 85024-1, 2639-3 #### [facility] ([id number]) [address] [place] [address] 99859Ybcrggnkfyt/100 WBC (Bld)4.6 %NormalCincinnati VA Medical Center Comment on above:Performed By: #### CBCA, CMP, 7-6, 55982-9, 55250-2, 81420- 5, PINR, 77204-6, 2639-3 #### [facility] ([id number]) [address] [place] [address] 78366CQJ (RBC) [Entitic mass]28.0 cdUutnch22-51SeqQpvstaMemorial Hermann Cypress HospitalComment on above:Performed By: #### CBCA, CMP, 2157-6, 71234-8, 06580-0, 57618-9, PINR, 28339-7, 2639-3 #### [facility] ([id number]) [address] [place] [address] 00005ZSNY (RBC) [Mass/Vol]33.6 g/nMVpowho77-36UptBnuizgCincinnati VA Medical CenterComment on above:Performed By: #### CBCA, CMP, 2157-6, 65163-4, 06572-9, 59725-3, PINR, 41116-2, 2639-3 #### [facility] ([id number]) [address] [place] [address] 49281RRD (RBC) [Entitic vol]83 wGJmgjvb53-113NgdHjqutaCincinnati VA Medical CenterComment on above:Performed By: #### CBCA, CMP, 7-6, 09935-5, 31515-2, 75461-2, PINR, 86005-9, 2639-3 #### [facility] ([id number]) [address] [place] [address] 33482Csvybwmel (Bld) [#/Vol]1.4 10*3/uLHigh0-0.9C[facility] Medical CenterComment on above:Performed By: #### CBCA, CMP, 7-6, 63394-4, 05792-3, 54084-2, PINR, 19923-2, 2639-3 #### [facility] ([id number]) [address] [place] [address] 50707Kigytwbzt/100 WBC (Bld)9.9 %NormalCincinnati VA Medical Center Comment on above:Performed By: #### CBCA, CMP, 2157-6, 05686-0, 89640-1, 75317- 5, PINR, 43766-4, 2639-3 #### [facility] ([id number]) [address] [place] [address] 02316Sakspljzsav/100 WBC (Bld)85.2 %NormalCincinnati VA Medical Center Comment on above:Performed By: #### CBCA, CMP, 2157-6, 33028-4, 11952-5, 91644- 5, PINR, 29682-3, 2639-3 #### [facility] ([id number]) [address] [place] [address] 57675Fxzhbdzz mean volume (Bld) [Entitic vol]9.0 fLNormal7-12 ProMKaiser Permanente Medical CenterComment on above:Performed By: #### CBCA, CMP, 7-6, 23356-2, 97320-8, 84159-0, PINR, 43452-7, 2639-3 #### [facility] ([id number]) [address] [place] [address] 01618Rldcyhzjt (Bld) [#/Vol]239 10*3/rSOqmyxr617-740QhnAyiueh [facility]remont HospitalComment on above:Performed By: #### CBCA, CMP, 2156-6, 09330-6, 39972-8, 96375-9, PINR, 14865-2, 2639-3 #### [facility] ([id number]) [address] [place] [address] 72154UVB COUNT4.83 X10E12/LNormal3.80-5.20[facility] Comment on above:Performed By: #### CBCA, CMP, 2156-6, 78994-0, 74598-0, 01227- 5, PINR, 67540-4, 2639-3 #### [facility] ([id number]) [address] [place] [address] 99082YYZ (Bld) [#/Vol]14.2 10*3/uLHigh4.0-11.0C[facility] Medical CenterComment on above:Performed By: #### CBCA, CMP, 2157-6, 31294-5, 37057-9, 07618-8, PINR, 52662-6, 2639-3 #### [facility] ([id number]) [address] [place] [address] 64162IN [Catalytic activity/Vol]on 63-23-2302WKN5353 U/CUkkq25-147 ProMspringhill medical centera San Joaquin General HospitalComment on above:Performed By: #### YULIANA, CMP, 7-6, 58192-0, 36129-9, 12188-1, PINR, 62172-8, 2639-3 #### [facility] ([id number]) [address] [place] [address] 16459UKZ8445 U/AVkbq43-256ScgGkifjjCincinnati VA Medical CenterComment on above:Performed By: #### YULIANA, CMP, 2156-6, 07358-3, 84313-8, 29754-7, PINR, 01577-4, 2639-3 #### [facility] ([id number]) [address] [place] [address] 57501LLEQKVBPVIEXA METABOLIC PANELon 48-33-8686Wfhqtom [Mass/Vol]3.5 g/dLNormal3.2-5.3ProMedica [facility] Joaquin General HospitalComment on above:Performed By: #### YULIANA, CMP, 2156-6, 39247-1, 11838-7, 54946-4, PINR, 50350-3, 2639-3 #### [facility] ([id number]) [address] [place] [address] 33766VKP [Catalytic activity/Vol]86 U/DIvyfxj60-957OnzCoxvmfCincinnati VA Medical CenterComment on above:Performed By: #### YULIANA, CMP, 2156-6, 36183-7, 90228-8, 87058-0, PINR, 68758-6, 2639-3 #### [facility] ([id number]) [address] [place] [address] 21061DTM [Catalytic activity/Vol]32 U/LHigh0-31PKettering Health DaytonComment on above:Performed By: #### CBCA, CMP, 2156-6, 98297-3, 49815-0, 46770-3, PINR, 11411-7, 2639-3 #### [facility] ([id number]) [address] [place] [address] 31016Vrhgz gap [Moles/Vol]10 mmol/LNormal5-15ProMemorial Hermann Cypress HospitalComment on above:Performed By: #### CBCA, CMP, 2156-6, 26372-1, 61544-2, 02792-4, PINR, 30254-3, 2639-3 #### [facility] ([id number]) [address] [place] [address] 34051MNT [Catalytic activity/Vol]62 U/LHigh0-41ProMemorial Hermann Cypress HospitalComment on above:Performed By: #### CBCA, CMP, 2156-6, 99605-8, 60405-9, 98190-1, PINR, 74864-4, 2639-3 #### [facility] ([id number]) [address] [place] [address] 29051Amfhbmlhh [Mass/Vol]0.6 mg/dLNormal0.3-1.2PKettering Health DaytonComment on above:Performed By: #### CBCA, CMP, 2156-6, 09605-2, 00817-8, 77027-4, PINR, 32375-6, 2639-3 #### [facility] ([id number]) [address] [place] [address] 93432Nsvzkpd [Mass/Vol]9.4 mg/dLNormal8.5-10.5PKettering Health DaytonComment on above:Performed By: #### CBCA, CMP, 7-6, 42602-2, 48486-0, 94253-7, PINR, 77256-4, 2639-3 #### [facility] ([id number]) [address] [place] [address] 66501Txrxknll [Moles/Vol]107 mmol/HQwuhvb65-071SiqZhctrfCincinnati VA Medical CenterComment on above:Performed By: #### YULIANA, SINDY, 2157-6, 40522-6, 95975-4, 85977-0, PINR, 07114-6, 2639-3 #### [facility] ([id number]) [address] [place] [address] 07540SA4 [Moles/Vol]24 mmol/LVcdikb77-99QwsSgiqwsKettering Health Dayton Comment on above:Performed By: #### YULIANA, SINDY, 2157-6, 33634-3, 64402-4, 31749- 5, PINR, 09372-8, 2639-3 #### [facility] ([id number]) [address] [place] [address] 39607Srfardpizz [Mass/Vol]1.27 mg/dLHigh0.40-1.00ProMemorial Hermann Cypress HospitalComment on above:Result Comment: METHOD TRACEABLE TO IDMS STANDARD Performed By: #### YULIANA, SINDY, 7-6, 50083-6, 04474-9, 73714-8, PINR, 38464-4, 2639-3 #### [facility] ([id number]) [address] [place] [address] 79445NOU/1.73 sq M.predicted among non-blacks MDRD (S/P/Bld) [Vol rate/Area]50 mL/min/{1.73_m2}Low>59ProMemorial Hermann Cypress HospitalComment on above: Result Comment: Reported eGFR is based on the CKD-EPI 2020 equation that does not use a race coefficient.Performed By: #### YULIANA, CMP, 2157-6, 23938-9, 22899- 7, 97832-7, PINR, 17310-1, 2639-3 #### [facility] ([id number]) [address] [place] [address] 02698Bntaruf [Mass/Vol]137 mg/oIClfm36-09NydOnukuu [facility] Comment on above:Performed By: #### YULIANA, CMP, 2156-6, 62659-2, 36864-9, 88683- 5, PINR, 31033-7, 2639-3 #### [facility] ([id number]) [address] [place] [address] 01659Ljioaqnwk [Moles/Vol]3.8 mmol/LNormal3.5-5.0ProMemorial Hermann Cypress HospitalComment on above:Performed By: #### YULIANA, CMP, 2156-6, 62821-4, 54917-3, 06053-1, PINR, 25064-8, 2639-3 #### [facility] ([id number]) [address] [place] [address], [place] [address]Smmtykk [Mass/Vol]8.1 g/dLHigh6.0-8.0[facility] Comment on above:Performed By: #### YULIANA, CMP, 2156-6, 86095-0, 73346-9, 83413- 5, PINR, 52775-3, 2639-3 #### [facility] ([id number]) [address] [place] [address], [place] [address]Zehxys [Moles/Vol]141 mmol/CZsfsfp262-201QmmUivwfx [facility] HospitalComment on above:Performed By: #### ELLIOTTA, CMP, 2156-6, 96185-5, 36688-4, 30391-2, PINR, 87232-8, 2639-3 #### [facility] ([id number]) [address] [place] [address], [place] [address]Lmye nitrogen [Mass/Vol]15 mg/dLNormal5-23ProMemorial Hermann Cypress HospitalComment on above:Performed By: #### CBCA, CMP, 2156-6, 47282-7, 09979-0, 85541-8, PINR, 12842-2, 2639-3 #### [facility] ([id number]) [address] [facility] [address]LO[address] [place], [place] [address]DR CTA CHESTon 69-97-0923ZU CTA CHESTCT CTA CHEST CLINICAL INFORMATION: Status post fall [...] for acute or suspicious pathology in the ukdxc-dh-sili. The trachea and bronchi are patent. No filling defects are identified. No suspicious pulmonary nodules or masses. Calcified and noncalcified pulmonary nodules are noted the largest distinct pulmonarynodule in the right upper lobe measuring 4 mm. No dedicated follow-up imaging is recommended with no provided history of malignancy or smoking. No aggressive osseous lesions. No acute fractures. Age compatible degenerative changes in the osseous structures. IMPRESSION: * No acute intrathoracic findings. Finalized by Reji Saini MD on 08/28/2024 12:40 PMNormalProMemorial Hermann Cypress HospitalFibrin D-dimer DDU (PPP) [Mass/Vol]on 08-28-2024D GRSZR7821 ng/mL DDU High<255C[facility] Medical CenterComment on above:Result Comment: Results >=255ng/mL DDU: Results may be indicative of the presence of VTE. The use of the Wells score and further diagnostic tests should be considered. Elevated D-Dimer levels can also be associated with DIC, neoplasm, , trauma and liver disease. Elevated levels of rheumatoid factor may lead to an overestimation of the D-Dimer level.Performed By: #### CBCA, CMP, 2157-6, 26613-5, 49091-4, 90031-6, PINR, 60048-5, 2639-3 #### [facility] ([id number]) [address] [place] [address] 80366OLSIMSZBMvz 45-65-2408Knnzciptt [Mass/Vol]1.9 mg/dLNormal 1.8-2.6ProMemorial Hermann Cypress HospitalComment on above:Performed By: #### CBCA, CMP, 2156-6, 42390-0, 24149-3, 49943-2, PINR, 60767-2, 2639-3 #### [facility] ([id number]) [address] [place] [address] 14877Tqlnkzxdj [Mass/Vol]2.0 mg/dLNormal1.8-2.6ProMem[facility] Herm[facility] Cyp[facility] HospitalComment on above:Performed By: #### YULIANA, CMP, 2156-6, 23998-5, 47201-5, 99543-3, PINR, 92181-0, 2639-3 #### [facility] ([id number]) [address] [place] [address] 67761Eboevnqjk [Mass/Vol]on 20-52-9622ZVLWB IKSIWALWE9496.9 ng/mL High14.3-65.8Pro[facility] HospitalComment on above:Performed By: #### CBCA, CMP, 2156-6, 77221-1, 44784-9, 17097-1, PINR, 18824-4, 2639-3 #### [facility] ([id number]) [address] [place] [address] 20476NBGLV HIMVJXOVC6830.8 ng/sAXclo11.3-65.8Pro[facility] Cyp[facility] HospitalComment on above:Performed By: #### CBCA, CMP, 2156-6, 73048-6, 19172-4, 27390-5, PINR, 52942-0, 2639-3 #### [facility] ([id number]) [address] [place] [address], [place] 79505XCWXSTXPAuz 02-98-3770Pdrlpbqeq [Moles/Vol]3.2 mmol/LLow3.5-5.0 [facility] HospitalComment on above:Performed By: #### CBCA, CMP, 2157-6, 73330-2, 38163-0, 83984-4, PINR, 17563-4, 2639-3 #### [facility] ([id number]) [address] [place] [address], [place] [address]ECAXVPT AND INRon 54-96-7510GAK Coag (PPP) [Relative time]1.3 {INR}High0.9-1.2PKettering Health DaytonComment on above:Performed By: #### CBCA, CMP, 2157-6, 46284-0, 04456-8, 37851-9, PINR, 85129-4, 2639-3 #### [facility] ([id number]) [address] [place] [address], [place] [address]LO Coag (PPP) [Time]15.0 sHigh9.8-13.2PKettering Health DaytonComment on above:Result Comment: NEW REFERENCE RANGEPerformed By: #### CBCA, CMP, 2157-6, 81443-7, 15312-8, 82357-7, PINR, 11025-0, 2639-3 #### [facility] ([id number]) [address] [place] [address], [place] [address]VIEX/FLU A+B/RSV by NAAT/Molecularon 76-60-6345FSPQ/FLU A+B/RSV by NAAT/MolecularFLU A PCR Negative (qualifier value) FLU B [...] operators who are performing tests using either [employer] or [employer] systems and is limited to laboratories that [...] specimen repeat. Fact Sheet for Healthcare Providers: https://www.fda.gov/media/532185/download Fact Sheet for Patients: https://www.fda.gov/media/909271/downloadNormalProCHRISTUS [facility]ohn Hospital Alice on above:Performed By: #### CBCA, CMP, 2157-6, 32701-8, 95247-2, 71444-2, PINR, 90145-4, 2639-3 #### [facility] ([id number]) [address] [facility], [place], [place] [address]Qytxpzvr I.cardiac High sensitivity method [Mass/Vol]on HOUR TROP I, HIGH VCZMURUSWQA37 ng/LHigh<16Pro[facility] HospitalComment on above:Result Comment: Elevations of hs-Troponin may be due to causes other than myocardial ischemia. Recommend serial hs-Troponin testing be performed. For the initial evaluation and management of chest pain patients, refer to the algorithms linked below. Emergency Patient: [email or web address] Inpatient: [email or web address] By: #### CBCA, CMP, 2157-6, 11000-2, 48312-6, 44573-9, PINR, 62281-9, 2639-3 #### [facility] ([id number]) [address] [place] [address] [id number] HOUR TROP I, HIGH KASSBVDVNDH83 ng/LHigh<16Pro[facility] HospitalComcorewell health [facility] hospital on above:Result Comment: Elevations of hs-Troponin may be due to causes other than myocardial ischemia. Recommend serial hs-Troponin testing be performed. For the initial evaluation and management of chest pain patients, refer to the algorithms linked below. Emergency Patient: [email or web address] Inpatient: [email or web address] By: #### CBCA, CMP, 2157-6, 18912-5, 20355-1, 02523-9, PINR, 73763-4, 2639-3 #### [facility] ([id number]) [address] [place] [address] 85941MWTIXYIU I, HIGH TWOSJUYOYXY87 ng/LHigh<16Pro[facility] HospitalComcorewell health lud[facility] hospital on above:Result Comment: Elevations of hs-Troponin may be due to causes other than myocardial ischemia. Recommend serial hs-Troponin testing be performed. For the initial evaluation and management of chest pain patients, refer to the algorithms linked below. Emergency Patient: [email or web address] Inpatient: [email or web address]=[email or web address] By: #### CBCA, CMP, 2157-6, 84507-4, 22227-7, 56472-7, PINR, 89683-4, 2639-3 #### [facility] ([id number]) [address] [place] [address] [id number] CHEST 1 VWon 37-76-6236LI CHEST 1 VWXR CHEST 1 VW Portable chest: HISTORY: Cough and weakness. Single view of the chest was obtained. Cardiac and mediastinal contours are within normal limits. Lungs clear. There is no vascular congestion or effusion. IMPRESSION: Negative exam. Finalized by Gian Gilbert MD on 08/28/2024 10:58 AMNormalProMedica San Joaquin General HospitalaPTT Coag (PPP) [Time]on 49-84-2429aPCU Coag (Bld) [Time]31 pTfgiko10-47 [facility] CenterComment on above:Result Comment: NEW REFERENCE RANGE Performed By: #### CBCA, CMP, 2157-6, 31080-2, 35099-9, 25805-7, PINR, 84392-4, 2639-3 #### [facility] ([id number]) [address] [place] [address]Lnaci Cultureon 29-03-0372Jdznxejp identified Cx Nom (U) ORGANISM: Proteus mirabilis (O:PROMIR) [place] Count >100,000 Aerobic ROSE Charge (NMIC56) SUSCEPTIBILITY [...] RESISTANT TO ALL B-LACTAM DRUGS. PERFORMED BY: [place] [address] PATHOLOGIST MOBILE HEAVY EQUIPMENT OPERATOR CLAIRE PATEL M.D.NormalThe Caromont Health Physician GroupComment on above: Performed By: #### CUU #### [address] StreetUrine cultureOrdered By: Tripp Gruber on 08-22-2024 Bacteria identified Cx Nom (U)[facility] HospitalBacteria identified Cx Nom (U)Proteus mirabilisAbnFairfield Medical Center MM TOMOSYNTHESIS SCREENING BIon 72-12-2126[place] [address] Mammography Report Signed Patient: ANUPAMA VASQUEZ MR#: [id number] : 1970 Acct:[id number] Age/Sex: 54 / F ADM Date: 06/30/24 Loc: MAMMO Attending Dr: Fred Gracia CARDIOLOGY FELLOW Ordering Physician: Fred Gracia NP Results: Date of Service: 06/30/24 Follow Up: Procedure(s): MM tomosynthesis screening BI Accession Number(s): [id number] cc: Fred Gracia NP Patient Name: ANUPAMA VASQUEZ MR#: [id number] : 1970 Exam Date: 06/30/2024 Ordering Doctor: [...] throat/lung cancer at age 56. LOCATION: [facility] BREAST COMPOSITION: There are scattered [...] Signed By: 06/30/24 1133 DD/ 1132 TD/TT: Trash Hauler:TBHRadiology, Radiologist, - 06/30/2024 [place] [address] Mammography Report Signed Patient: ANUPAMA VASQUEZ MR#: [id number] : 1970 Acct:[id number] Age/Sex: 54 / F ADM Date: 06/30/24 Loc: MAMMO Attending Dr: Fred Gracia NP Ordering Physician: Fred Gracia NP Results: Date of Service: 06/30/24 Follow Up: Procedure(s): MM tomosynthesis screening BI Accession Number(s): [id number] cc: Fred Gracia NP Patient Name: ANUPAMA VASQUEZ MR#: [id number] : 1970 Exam Date: 06/30/2024 Ordering Doctor: [...] throat/lung cancer at age 56. LOCATION: [facility] BREAST COMPOSITION: There are scattered [...] Signed By: 06/30/24 1133 DD/ 1132 TD/TT: Trash Hauler: [facility] HOSPITALSo Mercy Memorial HospitalRadiology Study observation (narrative)[facility] TOMOSYNTHESIS SCREENING BIOrdered By: Radiologist Radiology on 31-39-4977KKBAPemiscot Memorial Health Systems Work Phone: No [facility] Psychiatry Centeron [phone] King MA 04/27/2024 10:06 AM L Inj/Asp: [...] to verify the correct patient, procedure, equipment, endoscopy support specialist and site/side marked as required. Patient was prepped and draped in the usual sterile fashion. WakeMed North HospitalXR Shoulder - left 2 Viewson 78-68-5247Jemuddx Result: Two views, AP and Lateral, in the office taken today saved to the permanent record shows post surgical change with acromioplasty/partial distal clavulectomy with appropriate coplaning. No acute fracture, dislocation, tumor or infection seen.WakeMed North HospitalRadiology Study observation (narrative)[facility] Memorial Health SystemsBMPon 63-60-9222Xthcg gap [Moles/Vol]11 mmol/LNormal6-16Lutheran HospitalComment on above: Performed By: #### [id number] #### [facility] [address] [place], [place] [address]Wzonrvt [Mass/Vol]9.4 mg/dLNormal8.9-11.1FWyandot Memorial HospitalComment on above:Performed By: #### [id number] #### [facility] [address] [place], [place] [address]Oqkzolxp [Moles/Vol]104 mmol/HWtppim009-502EyckeiLutheran HospitalComment on above:Performed By: #### 6021669 #### [facility] [address] [place], [place] [address]MP1 [Moles/Vol]31 mmol/AAfxrwg24-73AhxsebLutheran Hospital Comment on above:Performed By: #### [id number] #### [facility] [address] [place], [place] [address]Oicvrsflbm [Mass/Vol]0.9 mg/dLNormal0.5-1.3FWyandot Memorial HospitalComment on above:Performed By: #### [id number] #### [facility] [address] [place], [place] [address]Xcedbyl [Mass/Vol]93 mg/rUUeimzu95-563VkqqhvLutheran HospitalComment on above:Performed By: #### 7815374 #### [facility] [address] [place], [place] [address]Bupvxbgep [Moles/Vol]4.1 mmol/LNormal3.5-5.3FWyandot Memorial HospitalComment on above:Performed By: #### 7358667 #### [facility] [address] [place] [address]Sdywmn [Moles/Vol]142 mmol/LHbkfxh557-829UlfwttLutheran HospitalComment on above:Performed By: #### 4367146 #### [facility] [address] [place] [address]Vgkz nitrogen [Mass/Vol]11 mg/dLNormal5-21Lutheran HospitalComment on above:Performed By: #### 1583925 #### [facility] [address] [place] [address] 400[address]Uplh nitrogen/Creatinine [Mass ratio]12 No DvwsmQzwiup44-81 Lutheran HospitalComment on above:Performed By: #### [id number] #### [facility] [address] [place] [address] 113[address]JOR w/ Auto Diffon 57-29-5799Aatfkxszc/100 WBC (Bld)0.6 %Normal 0.0-2.0Lutheran HospitalComment on above:Performed By: #### 5530828 #### [facility] [address] [place] [address]Oaqevqetc/Leukocytes Auto (Bld) [Pure # fraction]0.0 E9/LNormal 0.0-0.2FWyandot Memorial HospitalComment on above:Performed By: #### 3924898 #### [facility] [address] [place] [address] 806[address]Ewhtukqjmxo (Bld) [#/Vol]0.1 E9/LNormal0.0-0.5FWyandot Memorial HospitalComment on above:Performed By: #### 9047380 #### [facility] [address] [place] [address] 868[address]Cuzkwdxygeq/100 WBC (Bld)1.2 %Normal0.0-8.0Lutheran HospitalComment on above:Performed By: #### 0861485 #### [facility] [address] [place], [place] [address]Fxzhduirnvo distribution width (RBC) [Ratio]17.5 %High10.9-14.2 Lutheran HospitalComment on above:Performed By: #### 3358046 #### [facility] [address] [place] [address] 214[address]Unufnddsox (Bld) [Volume fraction]37.9 %Zhkryt38.0-46.0Lutheran HospitalComment on above:Performed By: #### 0478991 #### [facility] [address] [place] [address] 13773Bkdedpjqxf (Bld) [Mass/Vol]12.6 g/zVIljajl98.0-16.0Lutheran HospitalComment on above:Performed By: #### 5587478 #### [facility] [address] [place] [address] 249[address]Ekflxgvaqpf (Bld) [#/Vol]0.8 E9/LLow1.0-4.0Lutheran HospitalComment on above:Performed By: #### 9811250 #### [facility] [address] [place] [address] 787[address]Uwnvutztpdq/100 WBC (Bld)11.1 %Low14.0-50.0Lutheran HospitalComment on above:Performed By: #### 4838839 #### [facility] [address] [place] [address] 63[address]MVB (RBC) [Entitic mass]27.8 juAwkori51.0-34.0Lutheran HospitalComment on above:Performed By: #### 5381610 #### [facility] [address] [place] [address] 44[address]FQEL (RBC) [Mass/Vol]33.2 g/qKDbqomk13.4-36.0Lutheran HospitalComment on above:Performed By: #### 8025683 #### [facility] [address] [place] [address] 18329QEV (RBC) [Entitic vol]83.9 vAPlxgox24.0-100.0Lutheran HospitalComment on above:Performed By: #### 4592566 #### [facility] [address] [place] [address] 56[address]Iztxnnnqt (Bld) [#/Vol]0.8 E9/LNormal0.2-1.0Lutheran HospitalComment on above:Performed By: #### 4986397 #### [facility] [address] [place] [address] 07827Zfjyuaaqggm (Bld) [#/Vol]5.4 E9/LNormal2.0-7.5FWyandot Memorial HospitalComment on above:Performed By: #### 9005379 #### [facility] [address] [place] [address] 26977Dfpohsilzic/100 WBC (Bld)76.4 %High36.0-75.0Lutheran HospitalComment on above:Performed By: #### 2576930 #### [facility] [address] [place] [address] 26129Picxrvve566.0 E9/DGfuxka594.0-500.0[facility] Comment on above:Performed By: #### 8609401 #### [facility] [address] [place] [address] 707[address]Vkyxhcdz mean volume (Bld) [Entitic vol]10.4 fLNormal6.4-10.8 Lutheran HospitalComment on above:Performed By: #### 1254306 #### [facility] [address] [place] [address] 62170VSO (Bld) [#/Vol]4.5 E12/LNormal4.3-5.9Lutheran HospitalComment on above:Performed By: #### 2453949 #### [facility] [address] [place] [address] 25745GUW corrected for nucl RBC Auto (Bld) [#/Vol]7.1 E9/LNormal 4.0-11.0Formerly [facility] Countyer [facility] CenterComment on above:Performed By: #### 8263024 #### [facility] [address] [place], [place] [address]HXL UA (CLEAN/CATCH) MICROSCOPIC IF INDICATEon 01-23-2024 BILIRUBIN URINENegativeNEGATIVENOMS HealthcareBLOOD URINENegativeNEGATIVENOMS HealthcareClarity (U)CLEARCLEARNOMS HealthcareColor (U)LT. YELLOWYELLOWNOMS HealthcareGLUCOSE URINE UANegativeNEGATIVE mg/dLNOMS HealthcareKetones Ql (U) NegativeNEGATIVE mg/dLNOMS HealthcareLeukocyte esterase Test strip Ql (U) NegativeNEGATIVENOMS HealthcareNITRITE URINENegativeNEGATIVENOMS HealthcarepH (U)6.5 [pH]5.0 - 9.0NOMS HealthcarePROTEIN URINENegativeNEG/TRACE mg/dLNOMS HealthcareSPECIFIC GRAVITY URINE1.0101.005 - 1.025NOMS HealthcareURINE MICROSCOPIC INDICATEDNONOMS HealthcareUROBILINOGEN URINE0.2 EU/dL0.2 - 1.0 EU/dL NOMS HealthcareCLINISYNCNOMS HealthcareCNPNon 20-53-3398ODCMRdtnadavn (MARK) ANUPAMA VASQUEZ ([id number]) 1970 F Date Time Provider Department 12/19/23 NURSE [place] During your visit today, we recorded the following information about you: She Hernandez 12/19/2023 8:24 AM Signed Called patient to [...] exam [Z00.6] 11/27/2012 Encounter Status:Closed by SHE HERNANDEZ on 12/19/23[facility]MR [facility] WO IV CONTRASTon 20-75-9565NA SHOULDER LEFT WO IV CONTRASTEXAM: MR SHOULDER LEFT WO IV CONTRAST HISTORY: Shoulder pain TECHNIQUE: Multiplanar multisequence MRI of the shoulder was performed Without contrast. COMPARISON: Shoulder radiographs October 07, 2023 FINDINGS: Mild degenerative changes of the acromioclavicular joint with small undersurface osteophyte formation. The acromion is curved. Coracoclavicular ligament intact. Trace subacromial/subdeltoid bursal fluid. Mild supraspinatus, infraspinatus, and subscapularis [...] tendon. Mild glenohumeral osteoarthritis. ELECTRONICALLY SIGNED BY: Lucia Boyle AvailableComment on above:Order Comment: BB in left knee Previous MRI 7-8 years agoCNPNon 08-92-7833VRWSBckkmmylj ([facility]) ANUPAMA VASQUEZ ([id number]) 1970 F Date Time Provider Department 08/21/23 JESSICA CLARKE During your visit today, we recorded the following information about you: Renuka Ellison 08/21/2023 4:19 PM Signed [employer] Call Name of caller : Anupama Vasquez Relationship to patient: Self Return call phone number : [phone] Reason for call : Other : Brief [...] of spine [M48.02] Order(s):CONSULT TO SPINE SURGERY [[id number]] Order #: [id number]: 1 FUTURE Prescriptions as of 08/22/2023 - [...] 11/27/2012 Encounter Status:Closed by ELIZABETH VICTORIA on 08/22/23[facility] 41-15-4551DKRBWckxcqvii ([facility]) ANUPAMA VASQUEZ ([id number]) 1970 F Date Time Provider Department 07/15/23 [...] since c-spine MRI was completed locally outside [facility] in April. Orders already placed Elizabeth Victoria RN 07/16/2023 2:21 PM Signed Called patient, no answer. Message left to return call to office when able. MOE Spencer Megan A, RN 07/17/2023 9:04 AM Signed Called patient, no answer. Message left indicating [employer] message would be sent with reason for [...] sclerosis (HCC) [G35] Order(s):MRI BRAIN WO/W IVCON [3071481] Order #: [id number] FUTURE iv contrast (will be provided with [...] link Encounter Status:Closed by ELIZABETH VICTORIA on 07/17/23[facility] 26-39-6298OCIOSxbzqo Visit (PAINLN) ANUPAMA VASQUEZ ([id number]) 1970 F Date Time Provider Department 07/10/23 6:00 PM PARIS TOLEDO PAINÁNGEL During your visit today, we recorded the following information about you: Pulse Weight Height 89/minute 134.3 kg 1.676 m Paris Toledo DO 07/12/2023 11:26 AM Signed [facility] Initial Evaluation July 10, 2023 This appointment was requested by Jessica Clarke PA-C, for my medical opinion regarding the evaluation and management of the patient's Anupama Vasquez problems, and my final recommendations will be communicated to the requesting health care provider by way of the shared medical record for internal providers or letter via the [employer] for external providers. SUBJECTIVE: Anupama Vasquez a 53 year old presents to [facility] Department, accompanied by self [...] No history of dysuria, frequency or incontinence DIE DEVELOPER: Negative for abnormal vaginal bleeding, abnormal vaginal discharge MUSCULOSKELETAL: Negative for joint pain or swelling, back pain or musc (more content not included)...NormalMount St. [facility] W Auto Differential panel (Bld)on 59-18-7133Xjgnjmenm (Bld) [#/Vol]0.05 10*3/uLNormal<0.11CJ.W. Ruby [facility] on above:Order Comment: Specimen Type: BLOOD SPECIMENOrdering Facility: [facility] Address:[address] [place], [place] [address]Performed By: #### 72030-6 ####[facility] LABCL[facility] [id number] [place] [address] [place] AMERICABasophils/100 WBC (Bld)0.5 %NormalWadsworth-Rittman Hospital on above:Order Comment: Specimen Type: BLOOD SPECIMENOrdering Facility: [facility] Address:[address] [place], [place] [address]Performed By: #### 21743-4 ####[facility] LABCL[facility] [id number] [place] [address] [place] AMERICADifferential cell count method Nom (Bld)AutoNormalCJ.W. Ruby Memorial Hospital on above:Order Comment: Specimen Type: BLOOD SPECIMENOrdering Facility: [facility] Address:[address] [place], [place] [address]Performed By: #### 51678- 8 ####[facility] [id number] [place] [address] [place] AMERICAEosinophils (Bld) [#/Vol]0.19 10*3/uLNormal<0.46[facility] on above:Order Comment: Specimen Type: BLOOD SPECIMENOrdering Facility: [facility] Address:[address] [place], [place] [address]Performed By: #### 17341-9 ####[facility] [id number] [place] [address] [place] AMERICAEosinophils/100 WBC (Bld)2.1 % NormalWadsworth-Rittman Hospital on above:Order Comment: Specimen Type: BLOOD SPECIMENOrdering Facility: [facility] Address:[address] [place], [place] [address]Performed By: #### 39024-0 ####[facility] [id number] [place] [address] [place] AMERICAErythrocyte distribution width (RBC) [Ratio]15.5 %High11.5-15.0 [facility] on above:Order Comment: Specimen Type: BLOOD SPECIMENOrdering Facility: [facility] Address:[address] [place], [place] [address]Performed By: #### 53121-3 ####[facility] LABIA [id number] [place] [address] [place] AMERICAHematocrit (Bld) [Volume fraction]42.1 %Axdbyf24.0-46.0[facility] on above:Order Comment: Specimen Type: BLOOD SPECIMENOrdering Facility: [facility] Address:[address] [place], [place] [address]Performed By: #### 86713-4 ####[facility] [id number] [place] [address] [place] Hemoglobin (Bld) [Mass/Vol]12.9 g/oVDegymp48.5-15.5CPremier Health Upper [facility] Comment on above:Order Comment: Specimen Type: BLOOD SPECIMENOrdering Facility: [facility] Address:[address] [place] [address] Performed By: #### 12956-3 ####[facility] [id number] [place] [address] [place] Immature granulocytes (Bld) [#/Vol]0.04 10*3/uLNormal<0.10[facility] on above:Order Comment: Specimen Type: BLOOD SPECIMENOrdering Facility: [facility] Address:[address] [place], [place] [address]Performed By: #### 02291-8 ####[facility] [id number] [place] [address] [place] Immature granulocytes/100 WBC (Bld)0.4 %NormalWadsworth-Rittman Hospital on above:Order Comment: Specimen Type: BLOOD SPECIMENOrdering Facility: [facility] Address:[address] [place] [address] Performed By: #### 22677-2 ####[facility] [id number] [place] [address] [place] Lymphocytes (Bld) [#/Vol]0.82 10*3/uLLow1.00-4.00[facility] Comment on above:Order Comment: Specimen Type: BLOOD SPECIMENOrdering Facility: [facility] Address:[address] [place] [address] Performed By: #### 39099-1 ####[facility] [id number] [address] [place] Lymphocytes/100 WBC (Bld)9.0 %NormalWadsworth-Rittman Hospital on above: Order Comment: Specimen Type: BLOOD SPECIMENOrdering Facility: [facility] Address:[address] [place], [place] [address]Performed By: #### 71715- 8 ####[facility] [id number] [address] (RBC) [Entitic mass]26.9 pg Bzmhky98.0-34.0[facility] Community HospitalComcorewell health ludington hospital on above:Order Comment: Specimen Type: BLOOD SPECIMENOrdering Facility: [facility] Address:[address] [place], [place] [address]Performed By: #### 22200-2 ####[facility] [id number] [address]MC (RBC) [Mass/Vol]30.6 g/dL Xtkmqs91.5-36.0[facility] on above:Order Comment: Specimen Type: BLOOD SPECIMENOrdering Facility: [facility] Address:[address] [place], [place] [address]Performed By: #### 49037-4 ####[facility] [id number] [place] [address] [place] AMERICAMCV (RBC) [Entitic vol]87.9 fL Dvntpe44.0-100.0[facility] on above:Order Comment: Specimen Type: BLOOD SPECIMENOrdering Facility: [facility] Address:[address] [place], [place] [address]Performed By: #### 59976-8 ####[facility]IA [id number] [place] [address] [place] AMERICAMonocytes (Bld) [#/Vol]0.93 10*3/uLHigh<0.87[facility] on above:Order Comment: Specimen Type: BLOOD SPECIMENOrdering Facility: [facility] Address:[address] [place], [place] [address]Performed By: #### 93381-4 ####[facility] [id number] [place] [address] [place] AMERICAMonocytes/100 WBC (Bld)10.2 % NormalWadsworth-Rittman Hospital on above:Order Comment: Specimen Type: BLOOD SPECIMENOrdering Facility: [facility] Address:[address] [place], [place] [address]Performed By: #### 19294-5 ####[facility] [id number] [place] [address] [place] AMERICANeutrophils (Bld) [#/Vol]7.07 10*3/uLNormal1.45-7.50[facility] on above:Order Comment: Specimen Type: BLOOD SPECIMENOrdering Facility: [facility] Address:[address] [place], [place] [address]Performed By: #### 78266-2 ####[facility] [id number] [place] [address] [place] AMERICANeutrophils/100 WBC (Bld)77.8 %NormalWadsworth-Rittman Hospital on above:Order Comment: Specimen Type: BLOOD SPECIMENOrdering Facility: [facility] Address:[address] [place] [address] Performed By: #### 57827-1 ####[facility] [id number] [place] [address] [place] Nucleated RBC (Bld) [#/Vol]10*3/uLNormal<0.01[facility] on above:Order Comment: Specimen Type: BLOOD SPECIMENOrdering Facility: [facility] Address:[address] [place] [address] Performed By: #### 21649-9 ####[facility]CL[facility] [id number] [place] [address] [place] Nucleated RBC/100 WBC (Bld) [Ratio]0.0 /100 WBCNormalCPremier Health [facility] Comment on above:Order Comment: Specimen Type: BLOOD SPECIMENOrdering Facility: [facility] Address:[address] [place] [address] Performed By: #### 07683-8 ####[facility] [id number] [place] [address] [place] Platelet mean volume (Bld) [Entitic vol]12.4 fLNormal9.0-12.7CJ.[facility]. [facility] on above:Order Comment: Specimen Type: BLOOD SPECIMENOrdering Facility: [facility] Address:[address] [place], [place] [address]Performed By: #### 56824-3 ####[facility] [id number] [place] [address] [place] Platelets (Bld) [#/Vol]208 10*3/hYDfcepp236-283PjveibxxfWadsworth-Rittman Hospital on above:Order Comment: Specimen Type: BLOOD SPECIMENOrdering Facility: [facility] Address:[address] [place] [address] Performed By: #### 34130-3 ####[facility] [id number] [place] [address] [place] RBC (Bld) [#/Vol]4.79 10*6/uLNormal3.90-5.20[facility] HospitalComcorewell health lud[facility] hospital on above:Order Comment: Specimen Type: BLOOD SPECIMENOrdering Facility: [facility] Address:[address] [place], [place] [address]Performed By: #### 32261-8 ####[facility] [id number] [place] [address] [place] AMERICAWBC (Bld) [#/Vol]9.10 10*3/uLNormal3.70-11.00[facility] on above:Order Comment: Specimen Type: BLOOD SPECIMENOrdering Facility: [facility] Address:[address] [place], [place] [address]Performed By: #### 58719-2 ####[facility]ITAL[facility] [id number] [place] [address] [place] KZTMNTDAT04 ABSOLUTE COUNTon 05-22-2023 CD3-CD19+ cells (Bld) [#/Vol]219 cells/lXRpumtp55-691YxlazjgsdAultman Alliance Community Hospital Comment on above:Order Comment: Specimen Type: BLOOD SPECIMENOrdering Facility: [facility] Address:[address] [place] [address] Performed By: #### ABS19 ####[facility] [id number] [place] [address] [place] AMERICACD3-CD19+ cells/100 cells (Bld)23 %High5-22[facility] on above: Order Comment: Specimen Type: BLOOD SPECIMENOrdering Facility: [facility] Address:[address] [place], [place] [address]Performed By: #### ABS19 ####[facility] [id number] [place] [address] [place] AMERICALymphocytes/100 WBC FC (Bld)Normal [facility] on above:Order Comment: Specimen Type: BLOOD SPECIMENOrdering Facility: [facility] Address:[address] [place] [id number] By: #### ABS19 ####[facility] [id number] JESSICA CAMACHO [id number] OF PARKWOOD HOSPITALCNOVon 35-37-6739CNXWFvfrbp Visit (NTLORA) ANUPAMA VASQUEZ ([id number]) 1970 F Date Time Provider Department 05/22/23 8:00 AM [facility] [place] [facility] During your visit today, we recorded the [...] her tubes tied. Referring Provider: SARTHAK ESCOBAR [[id number]] Allergies As of Date: 05/22/2023 (No Known Allergies) Date Reviewed: 10/11/2022 Reviewed by: Maryam Cabrera, RN - Fully Assessed Primary Visit Diagnosis:Multiple sclerosis (HCC) [G35] Other Visit Diagnosis:Multiple sclerosis, relapsing-remitting (HCC) [G35] Order(s):TREATMENT PARAMETER-NOT NEEDED [6299055] Order #: [id number]: 1 BCN CD20 NURSING COMMUNICATION [24857163] Order #: [id number]: 1 BCN NURSING COMMUNICATION [0345272] Order #: [id number]: 1 CD19 ABSOLUTE COUNT [SQABS19] Order #: [id number] FUTURE [] methylPREDNISolone sod succinate(PF) 100 mg injection (SOLU-Medrol)Disp: Rfl: [] acetaminophen 1,000 mg tab(s) (TYLENOL)Disp: Rfl: [] diphenhydrAMINE 50 mg (BENADRYL)Disp: Rfl: [] ocrelizumab 600 mg in NaCl 0.9% 500 mL (OCREVUS)Disp: Rfl: CBC + DIFF [SQCBCDIF] Order #: [id number]. #:[id number] COMP METABOLIC PANEL [SQCMP] Order #: [id number]. #:[id number] IGG [SQIGG] Order #: [id number]. #:[id number] IGM [SQIGM] Order #: [id number]. #:[id number] CD19 ABSOLUTE COUNT [SQABS19] Order #: [id number]. #:[id number] Prescriptions as of 05/23/2023 - lisinopril (ZESTRIL) [...] (Discontinued) Encounter Status:Closed by SHE BRAND on 05/22/23NormalCUniversity Hospitals St. John Medical Centerprehensive metabolic 2000 panelon [id number] [Mass/Vol]4.0 g/dLNormal3.9-4.9CJ.[facility] on above:Order Comment: Specimen Type: BLOOD SPECIMENOrdering Facility: [facility] Address:[address] [place], [place] [address]Performed By: #### 86494-3 ####[facility] LABCLIA [id number] [place] [address] [place] AMERICAALP [Catalytic activity/Vol]90 U/TQajtll81-136IusjrzbjuWadsworth-Rittman Hospital on above:Order Comment: Specimen Type: BLOOD SPECIMENOrdering Facility: [facility] Address:[address] [place], [place] [address]Performed By: #### 32820-4 ####[facility] LABCLIA [id number] [place] [address] [place] AMERICAALT [Catalytic activity/Vol]23 U/LNormal7-38[facility] on above:Order Comment: Specimen Type: BLOOD SPECIMENOrdering Facility: [facility] Address:[address] [place], [place] [address]Performed By: #### 34710-3 ####[facility] LABCLIA [id number] [place] [id number] [place] AMERICAAnion gap [Moles/Vol]13 mmol/LNormal9-18[facility] on above:Order Comment: Specimen Type: BLOOD SPECIMENOrdering Facility: [facility] Address:[address] [place], [place] [address]Performed By: #### 49145-0 ####[facility] LABCLIA [id number] [place] [id number] [place] AST [Catalytic activity/Vol]25 U/YKsqitp65-37PyfjrlzggWadsworth-Rittman Hospital on above:Order Comment: Specimen Type: BLOOD SPECIMENOrdering Facility: [facility] Address:[address] [place] [address] Performed By: #### 36930-7 ####[facility] LABCLIA [id number] [place] [address] [place] Bilirubin [Mass/Vol]0.3 mg/dLNormal0.2-1.3CJ[facility] on above:Order Comment: Specimen Type: BLOOD SPECIMENOrdering Facility: [facility] Address:[address] [place], [place] [address]Performed By: #### 75024-6 ####[facility] LABIA [id number] [place] [address] [place] AMERICACalcium [Mass/Vol]9.4 mg/dLNormal8.5-10.2C[facility] on above:Order Comment: Specimen Type: BLOOD SPECIMENOrdering Facility: [facility] Address:[address] [place], [place] [address]Performed By: #### 48576-2 ####[facility] LABCLIA [id number] [place] [address] [place] AMERICAChloride [Moles/Vol]103 mmol/L Klzitz98-970FipgqpqgsWadsworth-Rittman Hospital on above:Order Comment: Specimen Type: BLOOD SPECIMENOrdering Facility: [facility] Address:[address] [place], [place] [address]Performed By: #### 23882-5 ####[facility] LABIA [id number] [place] [address] [place] AMERICACO2 [Moles/Vol]27 mmol/FIjkmjs51-32VnzeylozsWadsworth-Rittman Hospital on above:Order Comment: Specimen Type: BLOOD SPECIMENOrdering Facility: [facility] Address:[address] [place], [place] [address]Performed By: #### 58133-5 ####[facility] LABCLIA [id number] [place] [address] [place] Creatinine [Mass/Vol]1.04 mg/dLHigh0.58-0.96[facility] on above:Order Comment: Specimen Type: BLOOD SPECIMENOrdering Facility: [facility] Address:[address] [place], [place] [address]Performed By: #### 08576-7 ####[facility] LABIA [id number] [place] [address] [place] [facility]OSPITALCreatinine and Glomerular filtration rate.predicted panel (S/P/Bld)64 mL/min/1.73m???Normal>=60 [facility] on above:Order Comment: Specimen Type: BLOOD SPECIMENOrdering Facility: [facility] Address:[address] [place], [place] [address]Result Comment: Estimated Glomerular Filtration Rate (eGFR) is calculated using the 2020 CKD-EPI creatinine equation. This equation utilizes serum creatinine, sex, and age as parameters. The creatinine assay has traceable calibration to isotope dilution-mass spectrometry. Refer to KDIGO guidelines for clinical interpretation. In patients with unstable renal function, e.g. those with acute kidney injury, the eGFR may not accurately reflect actual GFR.Performed By: #### 68344-3 ####[facility] LABIA [id number] [place] [address] [place] AMERICAGlucose [Mass/Vol]88 mg/pPOkmikw22-11RxiabkbcmWadsworth-Rittman Hospital on above:Order Comment: Specimen Type: BLOOD SPECIMENOrdering Facility: [facility] Address:[address] [place], [place] [address]Result Comment: The [place] Diabetes Association (ADA) provides guidance for cutoff [...] Standards of Medical Care in Diabetes 2016, [place] [employer]. Diabetes Care. 2016.39(Suppl 1).Performed By: #### 47821-2 ####[facility] LABCLIA [id number] [place] [address] [place] AMERICAPotassium [Moles/Vol]3.7 mmol/L Normal3.7-5.1CJ.[facility]. [facility] on above:Order Comment: Specimen Type: BLOOD SPECIMENOrdering Facility: [facility] Address:[address] [place], [place] [address]Performed By: #### 14584-7 ####[facility] LABIA [id number] [place] [address] [place] AMERICAProtein [Mass/Vol]7.1 g/dLNormal6.3-8.0[facility] on above:Order Comment: Specimen Type: BLOOD SPECIMENOrdering Facility: [facility] Address:[address] [place], [place] [address]Performed By: #### 96781-8 ####[facility] LABIA [id number] [address] [place] Sodium [Moles/Vol]143 mmol/JBvnmym664-908ZwcedbgizWadsworth-Rittman Hospital on above:Order Comment: Specimen Type: BLOOD SPECIMENOrdering Facility: [facility] Address:[address] [place], [place] [address]Performed By: #### 49342-7 ####[facility] LABIA [id number] [place] [address] [place] AMERICAUrea nitrogen [Mass/Vol]17 mg/dLNormal7-21[facility] on above:Order Comment: Specimen Type: BLOOD SPECIMENOrdering Facility: [facility] Address:[address] [place], [place] [address]Performed By: #### 90957- 8 ####[facility] LABCLIA [id number] [address]ETIgG SerPl-[facility] 12-26-1652SxR [Mass/Vol]954 mg/rBJstrga329-1242GvqwatpdlAultman Alliance Community HospitalComcorewell health ludington hospital on above: Order Comment: Specimen Type: BLOOD SPECIMENOrdering Facility: [facility] Address:[address] [place], [place] [address]Performed By: #### 2465- 3, 2472-9 ####[facility] LABIA [id number] [facility] CLINICSMerry WITTCOOSA VALLEY MEDICAL CENTERGeorgia [address]ETIgM SerPl-nc 22-34-8908FaS [Mass/Vol]74 mg/vMGqyneq11-805AbvtmjykbAultman Alliance Community HospitalComment on above:Order Comment: Specimen Type: BLOOD SPECIMENOrdering Facility: [facility] Address:[address] [place], [place] [address]Performed By: #### 2465-3, 2472-9 ####[facility] LABIA [id number] [address]ETCNPNon [phone] Telephone (NIQ) ANUPAMA VASQUEZ ([id number]) 1970 F Date Time Provider Department 05/14/23 [...] 11/27/2012 Encounter Status:Closed by MICHELLE LUJAN on 05/14/23[facility] HCG QUALon 35-14-0818KGXLOZTUP, QUALNegativeNormalNEGATIVEThe [facility] CenterComment on above:Performed By: #### PREG #### [facility] [address] [place] [address] Dr. Angel LiIMMUNOGLOBULIN IGG QUANTITATIVEon 34-58-1618Ovxqgafbitpefw G, Qn, Ugmge5249 mg/oBQcwusx966-3123Cyx [facility] CenterComment on above:Performed By: #### IMIGGQN #### [facility] [address] [place] [address] Dr. Angel LiIMMUNOGLOBULIN IGM QUANTITATIVEon 73-97-8108Cxvfenoeqqmdxy M, Qn, Serum46 mg/sHUigbcv37-867Bsi [facility] CenterComment on above:Performed By: #### IMIGMQN #### [facility] [address] [place] [address] [address] Angel Tran AUTO DIFFon 00-10-4027MXOI #0.0 103/ulNormal0.0-0.1The [facility] CenterComment on above:Performed By: #### CBC #### [facility] [address] [place] [address] Dr. Angel LiBasophils/100 WBC (Bld)0.5 %Normal0.2-2.0The [facility] Comment on above:Performed By: #### CBC #### [facility] [address] [place] [address] Dr. Angel Tena #0.2 103/ulNormal0.0-0.7The [facility] CenterComment on above: Performed By: #### CBC #### [facility] [address] [place] [address] Dr. Angel Rawlsosinophils/100 WBC (Bld)2.6 %Normal0.9-7.0The [facility] Comment on above:Performed By: #### CBC #### [facility] [address] [place] [address] Dr. Angel Rawlsrythrocyte distribution width (RBC) [Ratio]14.5 %Chizwq68.0-15.0 The [facility] CenterComment on above:Performed By: #### CBC #### [facility] [address] [place] [address] Dr. Angel LiHematocrit (Bld) [Volume fraction]36.5 %Ucwpui35.0-48.0The [facility] CenterComment on above:Performed By: #### CBC #### [facility] [address] [place] [address] Dr. Angel LiHemoglobin (Bld) [Mass/Vol]11.8 g/dLCritically low12.0-16.0The [facility] CenterComment on above:Performed By: #### CBC #### [facility] [address] [place] [address] Dr. Angel Hernandez #0.03 10e3/ulNormal0.00-0.03The [facility] CenterComment on above:Performed By: #### CBC #### [facility] [address] [place] [address] [address] Angel Hernandez %0.4 %Normal0.0-0.5The [facility] CenterComment on above: Performed By: #### CBC #### [facility] [address] [place] [address] [address] Angel Baker #0.8 103/ulCritically low1.2-3.8The [facility] Comment on above:Performed By: #### CBC #### [facility] [address] [place] [address] Dr. Angel Benavidezhocytes/100 WBC (Bld)9.8 %Critically low20.5-60.0The [facility] CenterComment on above:Performed By: #### CBC #### [facility] [address] [place] [address] Dr. Angel Chirinos DIFF REQNONormalThe [facility] CenterComment on above: Performed By: #### CBC #### [facility] [address] [place] [address] [address] Angel Youssef (RBC) [Entitic mass]29.0 okYyepwm76.7-34.0The [facility] CenterComment on above:Performed By: #### CBC #### [facility] [address] [place] [address] Dr. Angel Sargent (RBC) [Mass/Vol]32.3 g/cNWfzhep69.9-35.2The [facility] CenterComment on above:Performed By: #### CBC #### [facility] [address] [place] [address] Dr. Angel Palmer (RBC) [Entitic vol]89.7 pLZutlnp57.0-99.0The [facility] CenterComment on above:Performed By: #### CBC #### [facility] [address] [place] [address] Dr. Angel Celestin #1.0 103/ulCritically high0.3-0.8The [facility] Comment on above:Performed By: #### CBC #### [facility] [address] [place] [address] Dr. Angel Kuhnocytes/100 WBC (Bld)13.0 %Critically high1.7-12.0The [facility] CenterComment on above:Performed By: #### CBC #### [facility] [address] [place] [address] Dr. Angel TejadaUT #5.9 103/ulNormal1.4-6.5The [facility] CenterComment on above:Performed By: #### CBC #### [facility] [address] [place] [address] Dr. Angel Tejadautrophils/100 WBC (Bld)73.7 %Dtofam31.0-75.0The [facility] CenterComment on above:Performed By: #### CBC #### [facility] [address] [place] [address] Dr. Angel Kathleenlet mean volume (Bld) [Entitic vol]11.6 fLNormal9.5-13.5The [facility] CenterComment on above:Performed By: #### CBC #### [facility] [address] [place] [address] Dr. Angel LiPLT200 103/djYrsrwd262-415Jrl [facility] CenterComment on above: Performed By: #### CBC #### [facility] [address] [place] [address] Dr. Angel LiRBC4.07 106/ulCritically low4.20-5.40The [facility] CenterComment on above:Performed By: #### CBC #### [facility] [address] [place] [address] Dr. Angel LiWBC8.0 103/ulNormal4.0-11.0The [facility] CenterComment on above: Performed By: #### CBC #### [facility] [address] [place] [address] Dr. Angel Pierre 14(COMP METB)on 57-97-1012Unfswjg [Mass/Vol]3.4 g/dLNormal 3.4-5.0The [facility] CenterComment on above:Performed By: #### CMP #### [facility] [address] [place] [address] Dr. Angel LiAlbumin/Globulin [Mass ratio]0.9 {ratio}NormalThe [facility] Medical CenterComment on above:Performed By: #### CMP #### [facility] [address] [place] [address] Dr. Angel Laird [Catalytic activity/Vol]122 U/LCritically erin61-479Wrl [facility] CenterComment on above:Performed By: #### CMP #### [facility] [address] [place] [address] Dr. Angel Reyes [Catalytic activity/Vol]35 U/RQsgvwy31-51Qrm [facility] CenterComment on above:Performed By: #### CMP #### [facility] [address] [place] [address] Dr. Angel Sanderson gap [Moles/Vol]9.7 mmol/LNormalThe [facility] CenterComment on above:Performed By: #### CMP #### [facility] [address] [place] [address] Dr. Angel LiAST [Catalytic activity/Vol]32 U/LDccnvv78-30Lbm [facility] CenterComment on above:Performed By: #### CMP #### [facility] [address] [place] [address] Dr. Angel LiBilirubin [Mass/Vol]0.4 mg/dLNormal0.2-1.0The [facility] Comment on above:Performed By: #### CMP #### [facility] [address] [place] [address] Dr. Angel LiCalcium [Mass/Vol]9.0 mg/dLNormal8.5-10.1The [facility] Comment on above:Performed By: #### CMP #### [facility] [address] [place] [address] Dr. Angel LiChloride [Moles/Vol]103 mmol/DNlnbno23-625Uhg [facility] Comment on above:Performed By: #### CMP #### [facility] [address] [place] [address] [address] Angel LiCO2 [Moles/Vol]32.3 mmol/LCritically high21.0-32.0[facility] HospitalComment on above:Performed By: #### CMP #### [facility] [address] [place] [address] Dr. Angel LiCreatinine [Mass/Vol]0.97 mg/dLNormal0.55-1.02The [facility] CenterComment on above:Performed By: #### CMP #### [facility] [address] [place] [address] Dr. Angel RawlsGFR-AF SRI LANKAN>60Normal>=60The [facility] CenterComment on above:Performed By: #### CMP #### [facility] [address] [place] [address] Dr. Angel RawlsGFR-NON AF SRI LANKAN=60Normal>=60The [facility] CenterComment on above:Performed By: #### CMP #### [facility] [address] [place] [address] Dr. Angel LiGlobulin (S) [Mass/Vol]3.7 g/dLNormalThe [facility] CenterComment on above:Performed By: #### CMP #### [facility] [address] [place] [address] Dr. Angel LiGlucose [Mass/Vol]87 mg/pGGtljpc35-800Jzx [facility] Comment on above:Performed By: #### CMP #### [facility] [address] [place] [address] Dr. Angel LiPotassium [Moles/Vol]4.0 mmol/LNormal3.5-5.1The [facility] Comment on above:Performed By: #### CMP #### [facility] [address] [place] [address] Dr. Angel LiProtein [Mass/Vol]7.1 g/dLNormal6.4-8.2The [facility] Comment on above:Performed By: #### CMP #### [facility] [address] [place] [address] [address] Angel LiSodium [Moles/Vol]141 mmol/SFrzuyh431-542Ljp [facility] Comment on above:Performed By: #### CMP #### [facility] [address] [place] [address] Dr. Angel LiUrea nitrogen [Mass/Vol]11.0 mg/dLNormal7.0-18.0[facility] HospitalComment on above:Performed By: #### CMP #### [facility] [address] [place] [address] Dr. Angel LiUrea nitrogen/Creatinine [Mass ratio]11.3 mg/mgNoZanesville City HospitalComment on above:Performed By: #### CMP #### [facility] [address] [place] [address] Dr. Angel Guadarrama ACOG PANEL 2: 30 to 65on 03-13-2022..NormalThe [facility] Medical CenterComment on above:Result Comment: Performed at: WBPerformed By: #### [id number] #### [facility] [address] [place] [address] Dr. Angel Gabriel Gdln ACOG Rjcpxxr73-98EsdajcAeeZanesville City HospitalComment on above:Performed By: #### [id number] #### [facility] [address] [place] [address] Dr. Angel LiDIAGNOSIS:CommentNoZanesville City HospitalComment on above: Result Comment: NEGATIVE FOR INTRAEPITHELIAL LESION OR MALIGNANCY. Performed at: WBPerformed By: #### [id number] #### [facility] [address] [place] [address] Dr. Angel Berrios AptimaNegativeNormalNegativeMercy Health Kings Mills HospitalComcorewell health ludington hospital on above:Result Comment: This nucleic acid amplification test detects fourteen high-risk HPV types (16,18,31,33,35,39,45,51,52,56,58,59,66,68) without differentiation. Performed at: =GPerformed By: #### [id number] #### [facility] [address] [place] [address] Dr. Angel LiMethodology:CommentWyandot Memorial Hospital on above: Result Comment: This liquid based ThinPrep(R) pap test was screened with the use of an image guided system. Performed at: WBPerformed By: #### [id number] #### [facility] [address] [place] [address] Dr. Angel LiNote:CommentNoNorwalk Memorial Hospital on above:Result Comment: The Pap smear is a screening test designed to aid in the detection of premalignant and malignant conditions of the uterine cervix. It is not a diagnostic procedure and should not be used as the sole means of detecting cervical cancer. Both false-positive and false-negative reports do occur. . Performed at: WBPerformed By: #### [id number] #### [place] [address] Dr[address] Angel LiPerformed by:CommentNoNorwalk Memorial Hospital on above: Result Comment: Shyanne Back, Piano Instructor (ASCP) Performed at: WBPerformed By: #### [id number] #### [place] [address] Dr. Angel LiSpecimemallorie adequacy:CommentWyandot Memorial Hospital on above:Result Comment: Satisfactory for evaluation. Endocervical and/or squamous metaplastic cells (endocervical component) are present. Performed at: WBPerformed By: #### [id number] #### [place] [address] Dr. Angel LiVAGINITIS/VAGINOSIS DNA PROBEon 58-95-6473Vqlrcpv speciesNegative NormalNegativeMercy Health Lorain Hospital on above:Performed By: #### VAGINT #### [place] [address] Dr. Angel Parkererellgoyo vaginalisPositiveAbnormalNegativeThe [facility] Medical CenterComment on above:Performed By: #### VAGINT #### [facility] [address] [address] [address] Angel LiTrichomonas vaginalisNegativeNormalNegativeThe [facility] Comment on above:Performed By: #### VAGINT #### [facility] [address] [place] [address] [address] Angel LiBRAIN & CERVICAL SPINE MRI DISCRETE DATAon 07-71-0439Yymbm Enhancing LesionsNoneCshelby memorial hospital ClinicBrain Interval ImprovementNoneCregency hospital cleveland westand Wadena ClinicBrain New T2 LesionsThe [facility] Other Significant MRI Findings None.[facility] HospitalBrain Parenchymal Volume LossNoneCUniversity [facility] St[facility] T2 [place]mer of DiseaseModerateMemorial Hospital BRAIN WO/W IVCONon 11-14-2021 [facility] W Auto Differential panel (Bld)on 52-75-3795Dav Immature Gran<0.03<0.10 k/uLCleveland Clinic Medina HospitalBasophils (Bld) [#/Vol]0.03 10*3/uL<0.11 k/uL [facility] HospitalBasophils/100 WBC (Bld)0.5 %[facility] HospitalDifferential cell count method Nom (Bld)AutoCleveland ClinicEosinophils (Bld) [#/Vol]0.15 10*3/uL <0.46 k/uLCleveland Clinic Medina HospitalEosinophils/100 WBC (Bld)2.4 %[facility] Erythrocyte distribution width (RBC) [Ratio]14.2 %11.5 - 15.0 %[facility] Hematocrit (Bld) [Volume fraction]41.5 %36.0 - 46.0 %[facility] HospitalHemoglobin (Bld) [Mass/Vol]12.9 g/dL11.5 - 15.5 g/dLCleveland Clinic Medina HospitalImmature Gran %0.3 % [facility] HospitalLymphocytes (Bld) [#/Vol]0.60 10*3/uLLow1.00 - 4.00 k/uL [facility] HospitalLymphocytes/100 WBC (Bld)9.7 %[facility] SystemH (RBC) [Entitic mass]29.3 pg26.0 - 34.[address]'s Medical CenterHC (RBC) [Mass/Vol]31.1 g/dL30.5 - 36.0 g/dLCleveland Clinic Medina HospitalMCV (RBC) [Entitic vol]94.3 fL80.0 - 100.0 fLCleveland ClinicMonocytes (Bld) [#/Vol]0.74 10*3/uL<0.87 k/uLWhiteville ClinicMonocytes/100 WBC (Bld)12.0 %[facility] HospitalNeutrophils (Bld) [#/Vol]4.62 10*3/uL1.45 - 7.50 k/uLWhiteville ClinicNeutrophils/100 WBC (Bld)75.1 %[facility] HospitalNucleated RBC (Bld) [#/Vol]10*3/uL<0.01 k/uLCleveland Clinic Medina HospitalNucleated RBC/100 WBC (Bld) [Ratio]0.0 /100 WBCCleveland Clinic Medina HospitalPlatelet mean volume (Bld) [Entitic vol]12.5 fL9.0 - 12.7 fLClevelfrye regional medical center alex[facility] ClinicPlatelets (Bld) [#/Vol]181 10*3/uL150 - 400 k/uL [facility] HospitalRBC (Bld) [#/Vol]4.40 10*6/uL3.90 - 5.20 m/uLCleveland Clinic Medina HospitalWBC (Bld) [#/Vol]6.16 10*3/uL3.70 - 11.00 k/uLCleveland Clinic Medina HospitalComprehensive metabolic 2000 panelon 79-75-1566Tzzojgk [Mass/Vol]3.8 g/dLLow3.9 - 4.9 g/dL [facility] CenterP [Catalytic activity/Vol]114 U/L34 - 123 U/LCleveland [facility]adena Clinic ALT [Catalytic activity/Vol]16 U/L7 - 38 U/LCleveland ClinicAnion gap [Moles/Vol]11 mmol/L9 - 18 mmol/LCleveland ClinicAST [Catalytic activity/Vol]21 U/L13 - 35 U/LCleveland ClinicBilirubin [Mass/Vol]0.4 mg/dL0.2 - 1.3 mg/dL [facility] HospitalCalcium [Mass/Vol]9.0 mg/dL8.5 - 10.2 mg/dLCleveland Clinic [facility] Chloride [Moles/Vol]102 mmol/L97 - 105 mmol/LCleveland ClinicCO2 [Moles/Vol]25 mmol/L22 - 30 mmol/LCleveland [place] ClinicCreatinine [Mass/Vol]0.97 mg/dLHigh0.58 - 0.96 mg/dLCleveland Clinic Medina HospitalEstimated Glomerular Filtration Rate70 mL/min/1.73m >=60 mL/min/1.73mCleveland ClinicGlucose [Mass/Vol]60 mg/dLLow74 - 99 mg/dL [facility] HospitalPotassium [Moles/Vol]4.0 mmol/L3.7 - 5.1 mmol/LCleveland [facility] Protein [Mass/Vol]7.0 g/dL6.3 - 8.0 g/dLMedina Hospitalodium [Moles/Vol]138 mmol/L136 - 144 mmol/LCleveland [place] ClinicUrea nitrogen [Mass/Vol]10 mg/dL7 - 21 mg/dLCleveland Clinic Medina HospitalLIPID PANEL BASICon 19-02-1641Zzgqjxepvcz [Mass/Vol]142 mg/dL<200 mg/dLCleveland Clinic Medina HospitalCholesterol in HDL [Mass/Vol]39 mg/dLLow>39 mg/dL [facility] HospitalCholesterol in LDL [Mass/Vol]72 mg/dL<100 mg/dLCleveland Clinic [facility] Cholesterol in LDL/Cholesterol in HDL [Mass ratio]1.85 {ratio}<2.54[facility] HospitalCholesterol in VLDL [Mass/Vol]31 mg/dLHigh<30 mg/dLCleveland Clinic [facility] Cholesterol non HDL [Mass/Vol]103 mg/dL<130 mg/dLCleveland Clinic [facility] Cholesterol.total/Cholesterol in HDL [Mass ratio]3.64 {ratio}<5.10[facility] HospitalFasting Time14 hoursCleMercy Health – The Jewish HospitalTriglyceride [Mass/Vol]157 mg/dLHigh <150 mg/dLCleveland Clinic Medina HospitalCOVID-19 SOFIAOrdered By: Liyah Rosa on 84-14-4444VXEF-CoV+SARS-CoV-2 (COVID-19) Ag IA.rapid Ql (Resp)NegativeNegative [facility]bleComment on above:This is a duplicate Wilma SARS Antigen (ELAINA) result to be used for statistical tracking purpose only.No Panel InformationOrdered By: Liyah Rosa on 68-18-7006GDZL Antigen (LFIA) [facility] PrebleCBC W/AUTO DIFFon 05-07-2017% RTGPHTYXDVH07.5 % NormalPathology Laboratories IncABS BASOPHILS0.0 K/ulNormal0.0-0.1[facility] IncBasophils/100 WBC Auto (Bld)0.8 %NormalPathology Laboratories IncComment on above:Result Comment: MANUAL DIFFERENTIAL PERFORMEDEosinophils0.1 10*3/uLNormal0.1-0.4[facility] IncEosinophils/100 leukocytes2.7 % NormalPathology Laboratories IncErythrocyte distribution width Auto Ratio (RBC) 12.1 %Qkclkg33.8-14.8[facility] IncErythrocytes (RBC)4.69 10*6/uL Normal4.00-5.50[facility] IncHematocrit (HCT)41.2 %Wepnro23.0-48.0 [facility] IncHemoglobin mass conc (Bld)13.9 g/mEZxguwy83.0-16.0 [facility] IncLymphocytes0.7 10*3/uLLow0.8-5.2[facility] IncLymphocytes/100 owrlleyjrc76.2 %NormalPathology Laboratories HtaVAQ47.6 pg Fhoism24.0-34.0[facility] IncMCHC mass conc (RBC)33.7 g/dLNormal 31.0-36.0[facility] JzzUXQ58.8 qCCbiakh49.-100.[facility] IncMonocytes0.7 10*3/uLNormal0.1-0.9[facility] Inc Monocytes/100 anlvdfvrma43.6 %NormalPathology Laboratories IncNeutrophils3.6 10*3/uLNormal1.3-9.1[facility] LadVwzixcwhx597 10*3/uLNormal 150.-450.[facility] IncWBC (Leukocytes)5.2 10*3/uLNormal3.7-10.8 [facility] IncCOMPREHENSIVE METABOLIC PANEL WITH GFRon 05-07-2017 Alanine aminotransferase (ALT)21 U/LNormal5-59Path[facility] IncAlbumin 4.2 g/dLNormal3.2-5.3[facility] IncALK PHOS80 IU/SDuyble08-196 [facility] IncAnion gap12 mmol/LNormalPathology Laboratories Inc AST-SGOT22 IU/VAcgnlr83-79Ymqxsbuds Laboratories IncBilirubin (direct)0.5 mg/dL Normal0.2-1.3[facility] IncCalcium9.3 mg/dLNormal8.7-10.8[facility] HdsXajaiskl751 mmol/NEawowv35-812Ffphwlccn Laboratories OkwDP901 mmol/VMhgmmp07-16Edooohcmf Laboratories IncCreatinine0.7 mg/dLNormal0.5-1.3 [facility] InceGFR (black)108 mL/min/{1.73_m2}Normal>60[facility] InceGFR (non-black)89 mL/min/{1.73_m2}Normal>60[facility] IncComment on above:Result Comment: * ESTIMATED GFR (eGFR) IS CALCULATED FROM SERUM CREATININE AND OTHER VARIABLES AFFECTING ITS VALUE (AGE, RACE, AND SEX). * FOR PATIENT WITH ESTABLISHED CHRONIC KIDNEY DISEASE, THE CHART BELOW DEFINES STAGES WITH eGFR VALUES. Stage 1 90 mL/min/1.73 m2 or greater Stage 2 60-89 mL/min/1.73 m2 Stage 3 30-59 mL/min/1.73 m2 Stage 4 15-29 mL/min/1.73 m2 Stage 5 14 mL/min/1.73 m2 or lessGlucose mass conc78 mg/dLNormal 70-100Path[facility] IncComment on above:Result Comment: DIAGNOSTIC THRESHOLDS FOR DIABETES AND IMPAIRED FASTING GLUCOSE (IFG) FASTING PLASMA GLUCOSE NORMAL <100 mg/dL IFG 100-125 mg/dL DIABETES >/= 126 mg/dLPotassium molar conc4.1 mmol/LNormal3.5-5.4[facility] YwsOxscxt974 mmol/L Ozmgcz454-965Khwpznxuq Laboratories IncT. PROTEIN6.8 g/dlNormal5.8-8.0[facility] IncUrea fjlayxom99 mg/aUMmflvj53-74Cnbngeoua Laboratories IncLIPID PANEL (INCLUDES CALCULATED LDL)on 20-34-7843Dlueltdykiy133 mg/dLNormal<200 [facility] IncCholesterol to HDL Ratio3.1 {ratio}Normal<5[facility] IncHDL-CHOL56 mg/llSfnmgr16-14Kivnqpofb Laboratories IncComment on above:Result Comment: HDL <40 mg/dL IS A RISK FACTOR FOR CORONARY HEART DISEASE. HDL >60 mg/dL IS ANEGATIVE RISK FACTOR FOR CORONARY HEART DISEASE.LDL to HDL Ratio1.7Normal<3.5[facility] IncLDL-CHOL, TYPRJSQPTT12 mg/dLNormal <130Path[facility] IncComment on above:Result Comment: LDL CHOLESTEROL REFERENCE RANGE FOR 0-19 YEARS: DESIRABLE <110 mg/dL, WYPKVLFLFN234-611, HIGH RISK >130 LDL CHOLESTEROL REFERENCE RANGE FOR ADULTS: DESIRABLE <100 mg/dL, BORD YANCI 130-159, HIGH RISK >160REFERENCE RANGES REVISED 10/28/15 ACCORDING TO NCEP GUIDELINESOfjexvrmpmyl323 mg/dLNormal<150Path[facility] IncVLDL- CHOL, AXCSJLFMFR69 mg/dLNormal<30[facility] IncTSH WITH FT4 REFLEXon 05-26-4125Unouyaf stimulating hormone (TSH)1.480 uIU/mLNormal0.40-4.40[facility] IncComment on above:Result Comment: [facility] [address] [place], [place] [address]Laboratory Director: Troy Goddard M.D.CLIA No. [id number] CAP Accreditation No. [id number] REPORT CLD on 05-27-8010ZDCLBMNQUYKFVDB REPORT CLDCOMA.[facility] and [place] [id number] [address] [place] [address]Patient Name: ANUPAMA VASQUEZ Visit ID: [id number] Record #: [id number] : 1970CC: Frances Aguilera CNP Pulmonary Function TestDate: 12/20/2016INDICATIONS FOR THE STUDY:Cough and tobacco use.REFERRING PHYSICIAN:Frances Aguilera CNPTEST DESCRIPTION:Patient gave good effort and c ooperation. All testing met ATS criteria. Albuterol treatment was given without adverse reactions. Patient noted asubjective improvement after albuterol treatment.FINDINGS:LUNG MECHANICS:FVC is mildly reduced at 83% of predicted (2.95 L).FEV1 is moderately reduced at 56% of predicted (1.64 L).FEV1 to FVC ratio is moderately reduced at 69% of predicted.Midflows are very severely reduced.Maximum voluntary ventilation is moderately reduced at 55% of predicted,but similar to FEV1. This does not support any evidence of respiratorymuscle weakness.Flow vital capacity is mildly reduced at 80% of predi cted but similar toforced vital capacity.Significant bronchodilator response is seen in all lung mechanics.FINAL IMPRESSION:1. Moderate obstructive ventilatory abnormality as well as very severe obstruction in the small airways.2. Significant bronchodilator response is seen. Clinical correlation isrecommended. Author: Jacki Hess M.D.DYLON/jerry/[id number]: 12/24/2016 10:14T: 12/24/2016 10:41 cc: Frances Aguilera CNP Electronically Authenticated and Edited by:Jacki Hess MD On 12/31/2016 09:16 AM [facility] Vital Signs Date TimeVital SignValuePerforming RqarjobmtJehhwtio90-44-2079 11:07-0400Body mass index (BMI) [Ratio]45.9 kg/v7FjgjtGuillermo Mendoza MD Work Phone: [facility]10-16-2025 11:07-0400Body vzxvhakumwr18.59 [degF]Guillermo Mendoza MD Work Phone: [facility]10-16-2025 11:07-0400Body ebinmt577.97 kgGuillermo Mendoza MD Work Phone: [facility]10-16-2025 11:07-0400Diastolic blood lqtubwxd69 mm[Hg]Guillermo Mendoza MD Work Phone: [facility] Cjxltb87-05-7875 11:07-0400Heart rate 70 /minGuillermo Mendoza MD Work Phone: [facility]10-16-2025 11:07-0400 Respiratory rate16 /minGuillermo Mendoza MD Work Phone: [facility]10-16-2025 11:07-8884QvQ5% (BldA) [Mass fraction]98 %Guillermo Mendoza MD Work Phone: [facility] HospitalMobileMD Rxiyow56-19-3760 11:07-0400Systolic blood hkgqamno086 mm[Hg]Guillermo Mendoza MD Work Phone: [facility] Mktxkf80-86-5029 13:43-0400Body xqebwq229.72 cmAlonzo Holguin MD Work Phone: [phone]08-28-2025 13:43-0400 Body mass index (BMI) [Ratio]43.4 kg/k8BsivlwiAlonzo Holguin MD Work Phone: [phone])483-[address] [place], [place] 2318508-28-2025 13:43-0400 Body .3 [degF]Alonzo Holguin MD Work Phone: 1(384)[address] [place], [place] 7938008-28-2025 13:43-0400 Body qebnjm904.72 kgAlonzo Holguin MD Work Phone: [phone])[address] [place], [place] 7938008-28-2025 13:43-0400 Diastolic blood fbcubtok00 mm[Hg]Alonzo Holguin MD Work Phone: 1(848)[address] [place], [place] 7938008-28-2025 13:43-0400 Heart rate76 /Tian Holguin MD Work Phone: 1(814)[address] [place], [place] 7938008-28-2025 13:43-0400 Respiratory rate18 /Tian Holguin MD Work Phone: 1(804)[address] [place], [place] 7938008-28-2025 13:43-0400 SaO2% (BldA) [Mass fraction]88 %Alonzo Holguin MD Work Phone: 1(915)[facility]-[address] [place], [place] 2318508-28-2025 13:43-0400 Systolic blood xhvyxret332 mm[Hg]Alonzo Holguin MD Work Phone: 1(698)[address] [place], [place] 7938008-12-2025 14:08-0400 Body ivnbta891.72 cmAlonzo Holguin MD Work Phone: [phone])[address]08-12-2025 14:08-0400 Body mass index (BMI) [Ratio]41.8 kg/n8UxmryfdAlonzo Holguin MD Work Phone: [phone]08-12-2025 14:08-0400 Body ydbxkc045.73 kgDokay Holguin MD Work Phone: [facility]08-12-2025 14:08-0400 Diastolic blood hkevhfos49 mm[Hg]Alonzo Holguin MD Work Phone: [facility]08-12-2025 14:08-0400 Heart rate77 /Tian Holguin MD Work Phone: [facility]08-12-2025 14:08-0400 Systolic blood ynmrplqw134 mm[Hg]Alonzo Holguin MD Work Phone: [facility]08-08-2025 10:09-0400 Body gjzmejuxlgr33.9 [degF]Guillermo Mendoza MD Work Phone: [facility] Eisuvh05-17-8257 10:09-0400Diastolic blood mm[Hg]Guilelrmo Mendoza MD Work Phone: [facility] Ndufsz12-84-9594 10:09-0400Heart rate 78 /Bee Mendoza MD Work Phone: [facility] Yututv42-61-3417 10:09-0400 Respiratory rate16 /Bee Mendoza MD Work Phone: [facility] Asnmns08-13-7046 10:09-3392PfD0% (BldA) [Mass fraction]96 %Guillermo Mendoza MD Work Phone: [facility] Ymbkfl77-68-7809 10:09-0400Systolic blood ninusfsw94 mm[Hg]Guillermo Mendoza MD Work Phone: [facility] Hhlowu44-01-2157 09:52-0400Body aufnjd677 cmCflorinda Mendoza MD Work Phone: [facility] Wxhssu21-19-4614 09:52-0400Body mass index (BMI) [Ratio]47.25 kg/x9GbwncGuillermo Mendoza MD Work Phone: [facility] Okbdwy98-56-6008 09:52-0400Body owmnan403.64 kgGuillermo Mendoza MD Work Phone: [facility]07-24-2025 09:18-0400Body mmoayffmqdl08.01 [degF]Guillermo Mendoza MD Work Phone: [facility]07-24-2025 09:18-0400Diastolic blood pgdjpodl79 mm[Hg]Guillermo Mendoza MD Work Phone: [facility]07-24-2025 09:18-0400Heart rate 79 /Bee Mendoza MD Work Phone: [facility]07-24-2025 09:18-0400 Respiratory rate17 /Bee Mendoza MD Work Phone: [facility]07-24-2025 09:18-2272YiV9% (BldA) [Mass fraction]98 %Guillermo Mendoza MD Work Phone: [facility]07-24-2025 09:18-0400Systolic blood clqbpuzj09 mm[Hg]Guillermo Mendoza MD Work Phone: [facility]07-03-2025 15:04-0400Body ofjprv801.72 cmTripp Gruber MD Work Phone: [phone])314-[facility]07-03-2025 15:04-0400 Body mass index (BMI) [Ratio]38 kg/h2HclxdTripp Gruber MD Work Phone: 1(854)937-[facility]07-03-2025 15:04-0400 Body rigewhrexbf44.3 [degF]Tripp Gruber MD Work Phone: 1(243)386-[address] [place], [place] [address]3007-03-2025 15:04-0400 Body rdfysb129.39 kgTripp Gruber MD Work Phone: 1(069)666-[facility]07-03-2025 15:04-0400 Diastolic blood qyzxqxqf82 mm[Hg]Tripp Gruber MD Work Phone: [facility]07-03-2025 15:04-0400 Heart rate83 /Tiara Gruber MD Work Phone: [facility]07-03-2025 15:04-0400 Respiratory rate18 /Tiara Gruber MD Work Phone: [facility]07-03-2025 15:04-0400 SaO2% (BldA) [Mass fraction]98 %Tripp Gruber MD Work Phone: [facility]07-03-2025 15:04-0400 Systolic blood ndnptlna61 mm[Hg]Tripp Gruber MD Work Phone: [facility]06-26-2025 10:55-0400 Body pboxkd696.1 Katie Mendoza MD Work Phone: [facility]06-26-2025 10:55-0400Body orltzhnitjo43.1 [degF]Guillermo Mendoza MD Work Phone: [facility]06-26-2025 10:55-0400Diastolic blood kfgheucs48 mm[Hg]Guillermo Mendoza MD Work Phone: [facility] Zdnbfk83-53-3169 10:55-0400Heart rate 82 /Bee Mendoza MD Work Phone: [facility] Pbknig44-86-4584 10:55-0400 Respiratory rate22 /Bee Mendoza MD Work Phone: [facility]06-26-2025 10:55-4561RdK5% (BldA) [Mass fraction]100 %Guillermo Mendoza MD Work Phone: [facility] Cpkyww32-13-7066 10:55-0400Systolic blood ooqwdisx825 mm[Hg]Guillermo Mendoza MD Work Phone: [facility]06-24-2025 12:30-0400Body aodznp552.1 Princess Garcia TILE FITTER-MEDICAL SECRETARY Work Phone: [facility]06-24-2025 12:30-0400Body mass index (BMI) [Ratio]42.1 kg/u2ZbwymkwnReji Garcia TILE FITTER-MEDICAL SECRETARY Work Phone: [facility] Ioglda42-43-1576 12:30-0400Body zaazci796.76 kgReji Garcia TILE FITTER-MEDICAL SECRETARY Work Phone: [facility]05-12-2025 23:34-0400Diastolic blood mm[Hg]Julio Fernandez MD Work Phone: [facility]05-12-2025 23:34-0400Heart rate 83 /minJulio Fernandez MD Work Phone: [facility] Jnccuj88-70-4693 23:34-0400 Respiratory rate15 /minJulio Fernandez MD Work Phone: [facility] Gomlkj76-36-1277 23:34-0400Systolic blood mm[Hg]Julio Fernandez MD Work Phone: [facility]05-12-2025 20:38-0400Body usalizlhiir89.1 [degF]Julio Fernandez MD Work Phone: [facility]05-12-2025 20:38-0681AoQ6% (BldA) [Mass fraction]100 %Julio Fernandez MD Work Phone: [facility] Pdejas93-53-2194 05:00-0400Body mass index (BMI) [Ratio]40.87 kg/m2Julio Fernandez MD Work Phone: [facility] Cnivrh92-63-3086 05:00-0400Body efoiob082.8 kgJulio Fernandez MD Work Phone: [facility] Dylnsg68-34-5689 01:00-0400Body joykzj297.6 Julio Fernandez MD Work Phone: [facility]05-03-2025 03:52-6089FpG1% (BldA) [Mass fraction]95 %Julio Fernandez MD Work Phone: [facility]05-03-2025 03:52-2009MjY5% (BldA) [Mass fraction]78 %Julio Fernandez MD Work Phone: [facility]05-03-2025 03:47-0318CxF5% (BldA) [Mass fraction]78 %FRED GRACIASt. Rita's HospitalComment on above:Performed By: #### PINR #### [facility] ([facility]) [address] [place] [address] RQI16-44-6854 13:14-0400Body hvcsvikkpzr41.8 [degF]Adonay Castillo TILE FITTER-MEDICAL SECRETARY Work Phone: [facility]04-30-2025 13:14-0400Diastolic blood dbgbvvwe83 mm[Hg]Adonay Castillo TILE FITTER-MEDICAL SECRETARY Work Phone: [phone]04-30-2025 13:14-0400Heart rate 74 /minAdonay Castillo TILE FITTER-MEDICAL SECRETARY Work Phone: [phone]04-30-2025 13:14-0400Systolic blood titebaqw567 mm[Hg]Adonay Castillo TILE FITTER-MEDICAL SECRETARY Work Phone: [phone]04-01-2025 09:18-0400Body mass index (BMI) [Ratio]44.96 kg/m2Fred Gracia CARDIOLOGY FELLOW Work Phone: noChristian HospitalUskkchxrvs95-51-4166 09:18-0400Body temperature 98.2 [degF]Fred Gracia CARDIOLOGY FELLOW Work Phone: noChristian HospitalPnbwjdgqae55-54-4995 09:18-0400Body .56 kgFred Gracia CARDIOLOGY FELLOW Work Phone: noChristian HospitalNonqkpuskm10-31-0277 09:18-0400Diastolic blood ooszrfmo95 mm[Hg]Fred Gracia CARDIOLOGY FELLOW Work Phone: [facility] SystemsCloqcrlczd31-68-1253 09:18-0400Heart rate98 /min Fred Gracia CARDIOLOGY FELLOW Work Phone: [facility] SystemsUymotbqxmj97-60-7235 09:18-0400Respiratory rate24 /minFred Gracia CARDIOLOGY FELLOW Work Phone: [facility] SystemsYpxqthjytp00-78-2306 09:18-7654OqS2% (BldA) [Mass fraction]95 %Fred Gracia CARDIOLOGY FELLOW Work Phone: [facility] SystemsIrjrkdecma25-33-5528 09:18-0400Systolic blood wzwbxixt075 mm[Hg]Fred Gracia CARDIOLOGY FELLOW Work Phone: [facility] SystemsJjlksksxfz91-44-8305 09:33-0500Body mass index (BMI) [Ratio]47.09 kg/v9Tcnxzqui Boone CARDIOLOGY FELLOW Work Phone: [facility] SystemsPrhhcavhkq07-77-9755 09:33-0500Body temperature 97.7 [degF]Sherrie Fosterzpatrick CARDIOLOGY FELLOW Work Phone: [facility] SystemsTzfdehgopo41-23-3383 09:33-0500Body wrleir330.37 kgSandiebryon LalBoone CARDIOLOGY FELLOW Work Phone: [facility] SystemsVtbligzifq15-82-5046 09:33-0500Diastolic blood uazfobwb64 mm[Hg]Sherrie Boone CARDIOLOGY FELLOW Work Phone: [facility] SystemsZafgmvmmdr72-27-2330 09:33-0500Heart dssa673 /min Sherrie Boone CARDIOLOGY FELLOW Work Phone: [facility] SystemsRubhbkbopx39-87-8659 09:33-0500Respiratory rate16 /minSandiebryon FosterBoone CARDIOLOGY FELLOW Work Phone: noChristian HospitalLrukvzrcme33-16-8013 09:33-8843RtM7% (BldA) [Mass fraction]97 %Sherrie Boone CARDIOLOGY FELLOW Work Phone: noChristian HospitalVavdtbiupa29-92-4077 09:33-0500Systolic blood rxhihvlb289 mm[Hg]Sherrie Lalpatrick CARDIOLOGY FELLOW Work Phone: [facility] SystemsAavtmlltiz00-59-4721 09:18-0500Body xuejem506.1 Lita Frankaimee CARDIOLOGY FELLOW Work Phone: [facility] SystemsAqgfvgidrt77-03-8321 09:18-0500Body mass index (BMI) [Ratio]46.93 kg/m2Fred Basli CARDIOLOGY FELLOW Work Phone: [facility] SystemsSmpwfjpgkr15-81-3536 09:18-0500Body temperature 98.1 [degF]Fred Basil CARDIOLOGY FELLOW Work Phone: [facility] SystemsUtsjelymga84-56-7155 09:18-0500Body ufryef049.91 kgLi Monikaberenicevicky CARDIOLOGY FELLOW Work Phone: [facility] SystemsTtvygbdhaj26-90-2645 09:18-0500Diastolic blood qztrryka51 mm[Hg]Fred Basil CARDIOLOGY FELLOW Work Phone: [facility] SystemsEakonplbtg73-93-0656 09:18-0500Heart rate81 /min Fred Basil CARDIOLOGY FELLOW Work Phone: noChristian HospitalFqsoujyhyx72-68-4128 09:18-0500Respiratory rate19 /minFred Monikaberenicevicky CARDIOLOGY FELLOW Work Phone: [facility] SystemsZcyzalyyjg93-41-8194 09:18-4695EhA4% (BldA) [Mass fraction]95 %Fred Basil CARDIOLOGY FELLOW Work Phone: [facility] SystemsQradsqvdcd76-45-6414 09:18-0500Systolic blood mm[Hg]Fred Basil CARDIOLOGY FELLOW Work Phone: [facility] SystemsYjlqreimnj93-58-5794 09:03-0500Body cciysc804.1 Fatou Vazquez PA Work Phone: noChristian HospitalBmrtcocbgq12-70-7623 09:03-0500Body mass index (BMI) [Ratio]46.43 kg/m2Yahaira Vazquez PA Work Phone: noChristian HospitalZtqzyzpfpe54-42-0946 09:03-0500Body .55 kgToedith Bon Secour PA Work Phone: noChristian HospitalDqcyjagaxs42-01-2742 10:04-0400Body ennvao687.1 Lita Basil CARDIOLOGY FELLOW Work Phone: [facility] SystemsEqnhxvkxhp30-49-9562 10:04-0400Body mass index (BMI) [Ratio]46.49 kg/m2Fred Basil CARDIOLOGY FELLOW Work Phone: [facility] SystemsCulkcqyyfy04-10-0061 10:04-0400Body temperature 97.59 [degF]Fred Basil CARDIOLOGY FELLOW Work Phone: [facility] SystemsAcpyhfzqrk94-98-2869 10:04-0400Body .73 kgFred Monikaberenicevicky CARDIOLOGY FELLOW Work Phone: [facility] SystemsDcbkvabpkq58-61-8843 10:04-0400Diastolic blood yodphotd85 mm[Hg]Fred Basil CARDIOLOGY FELLOW Work Phone: [facility] SystemsBhephslqlp67-51-9630 10:04-0400Heart rate82 /min Fred Basil CARDIOLOGY FELLOW Work Phone: [facility] SystemsIoivytigsf80-50-1309 10:04-0400Respiratory rate18 /minLi Monikaberenicevicky CARDIOLOGY FELLOW Work Phone: [facility] SystemsCokypnjfzn87-95-5561 10:04-4103JcG6% (BldA) [Mass fraction]97 %Fred Basil CARDIOLOGY FELLOW Work Phone: [facility] SystemsMmnxlehofn63-86-2230 10:04-0400Systolic blood mm[Hg]Fred Basil CARDIOLOGY FELLOW Work Phone: [facility] SystemsSogqfgbqqa43-31-8776 08:32-0400Body ypbucp629.1 cmMichael Brooks DO Work Phone: noChristian HospitalVwkuopcdqf88-88-3529 08:32-0400Body mass index (BMI) [Ratio]48.09 kg/k9Ctxpaeg Brooks DO Work Phone: 1(564)[address] [place], [place] 3672210-08-2024 08:32-0400Body ewymog709.09 kgEliazar Brooks DO Work Phone: 1(338)[address] [place], [place] 3672209-23-2024 17:11-0400Heart rate82 /min Eliazar Zbigniew [address] [place], [place] 4653009-23-2024 17:11-8254AuL8% (BldA) [Mass fraction]94 %Eliazar Zbigniew [address]09-23-2024 17:11-0400 Diastolic blood deyholao28 mm[Hg]Eliazar Brooks [address] [place], [place] 4653009-23-2024 17:11-0400Mean blood jgaubvfv546 mm[Hg]Eliazar Brooks [address]09-23-2024 17:11-0400 Systolic blood mxjplryz565 mm[Hg]Eliazar Zbigniew [address]09-23-2024 17:11-0400 Respiratory rate16 /minRoserosey Zbigniew [address] [place], [place] 4653009-23-2024 17:11-0400Body eeelsxqvygm16.24 [degF]Eliazar Brooks [address]09-23-2024 16:06-0400Heart rate81 /minEliazar Brooks [address] [place], [place] 8832109-23-2024 16:06-4801ZbH4% (BldA) [Mass fraction]99 %Eliazar Brooks [address] [place], [place] 8832109-23-2024 16:06-0400 Diastolic blood fetsusie11 mm[Hg]Eliazar Brooks [address] [place], [place] [id number] 16:06-0400Mean blood sojjrsmj39 mm[Hg]Eliazar Brooks [address]09-23-2024 16:06-0400 Systolic blood mm[Hg]Eliazar Zbigniew [address]09-23-2024 16:05-0400 Respiratory rate16 /minMichael Brooks [address] [place], [place] [id number] 16:00-0400Body kcnihoecdon25.52 [degF]Eliazar Zbigniew [address]09-23-2024 16:00-0400 Respiratory rate22 /minMichael Brooks [address] [place], [place] [id number] 16:00-8366WaA9% (BldA) [Mass fraction]95 %Eliazar Zbigniew [address]09-23-2024 16:00-0400 Systolic blood nvxhimcl855 mm[Hg]Eliazar Zbigniew [address] [place], [place] [id number] 15:50-0400Mean blood cgottbtu881 mm[Hg]Eliazar Zbigniew [address]09-23-2024 15:50-0400 Respiratory rate24 /minMichael Brooks [address] [place], [place] [id number] 15:45-0400 Respiratory rate9 /minMichael Brooks [address] [place], [place] [id number] 15:37-0400Blood Pressure LocationMichael Brooks [address] [place], [place] [id number] 15:37-0400Body nsirecdideb46.7 [degF]Eliazar Zbigniew [address] [place], [place] [id number] 15:30-0400 Respiratory rate18 /minMichael Brooks [address] [place], [place] [id number] 12:04-0400Blood Pressure LocationMichael Brooks [facility]09-23-2024 12:04-0400Mean blood kfvnhuyb570 mm[Hg]Eliazar Brooks [facility]09-23-2024 12:04-0400Heart rate94 /minEliazar Brooks [facility]09-23-2024 12:03-0400Body ejnfiglbwfw23.88 [degF]Eliazar Brooks [facility]09-23-2024 12:03-0400Blood Pressure LocationMicsachinl Zbigniew [facility]09-16-2024 14:28-0400Body .1 cmLisa Basil CARDIOLOGY FELLOW Work Phone: [facility] SystemsItadsyhfxl47-63-6620 14:28-0400Body mass index (BMI) [Ratio]48.09 kg/m2Lisa Basil CARDIOLOGY FELLOW Work Phone: [place] [address]Mahnplfptn28-00-1043 14:28-0400Body temperature 98.49 [degF]Fred Basil CARDIOLOGY FELLOW Work Phone: [place] [address]Nyyupkgycz69-59-6235 14:28-0400Body tdabcn761.09 kgLisa Basil CARDIOLOGY FELLOW Work Phone: [place] [address]Cosnlakxaq72-79-7473 14:28-0400Diastolic blood tthacuxy81 mm[Hg]Fred Basil CARDIOLOGY FELLOW Work Phone: [place] [address]Xjmudqeyrh76-13-0025 14:28-0400Heart rate83 /min Fred Bonitaz CARDIOLOGY FELLOW Work Phone: [place] [address]Ubikwxeaon99-94-5363 14:28-0400Respiratory rate18 /minLisa Bonitaz CARDIOLOGY FELLOW Work Phone: [place] [address]Rzxvziibaw23-81-5163 14:28-1206LpG3% (BldA) [Mass fraction]93 %Fred Basil CARDIOLOGY FELLOW Work Phone: [facility] SystemsFbaqkashez15-99-6737 14:28-0400Systolic blood ritghtdo576 mm[Hg]Fred Gracia CARDIOLOGY FELLOW Work Phone: [facility] SystemsUhpyhicnus30-63-2609 10:45-0400Body ssadtm679.1 cmMichael Brooks DO Work Phone: [facility] SystemsBfrlyrsahv77-94-7002 10:45-0400Body mass index (BMI) [Ratio]48.92 kg/w8Hoqtuns Brooks DO Work Phone: [facility] SystemsIdgbbjubhv52-60-9619 10:45-0400Body lmkthi120.36 kgMichael Brooks DO Work Phone: [facility] SystemsCdkpvpzdln96-23-9028 15:53-0500Body aowcdt030.6 cmGirgis Paris DO Work Phone: [facility]02-21-2024 15:53-0500Body rcgyuo087.26 kgGirgis Paris DO Work Phone: [facility]02-21-2024 15:53-0500Heart rate89 /min Paris Paris DO Work Phone: [facility]02-21-2024 15:53-1962MtL4% (BldA) [Mass fraction]97 %Paris Paris DO Work Phone: [facility]02-07-2024 11:34-0500Body oridbn003.1 Lisha Lunsford MD Work Phone: [facility] SystemsEyzslcugdr39-50-5885 11:34-0500Body mass index (BMI) [Ratio]48.09 kg/p6BbphjlShaikh Jonn BENITEZ Work Phone: [facility] SystemsLcvsecmwhd06-58-8893 11:34-0500Body temperature 98.6 [degF]Shaikh Jonn BENITEZ Work Phone: [facility] SystemsCbmjfoalhg07-41-6414 11:34-0500Body dmqfab240.09 kgShaikh Jonn BENITEZ Work Phone: noReclip.ItXmkfzduydl50-52-2023 11:34-0500Diastolic blood xgyykeug13 mm[Hg]Shaikh Jonn BENITEZ Work Phone: noCA Jcfqfelfuy49-07-5631 11:34-0500Heart rate77 /min Shaikh Jonn BENITEZ Work Phone: noChristian HospitalAzlvffqfri87-05-6707 11:34-9567PdO8% (BldA) [Mass fraction]96 %Shaikh Jonn BENITEZ Work Phone: noChristian HospitalZevnqmxwte07-53-1334 11:34-0500Systolic blood rpydxuyy502 mm[Hg]Shaikh Jonn BENITEZ Work Phone: noCA Xfkjrdgdab76-34-3598 10:30-0500Body aqcayn687.99 cmLmert Rosa Other [employer] Other 11-30-2022 10:30-0500Body mass index (BMI) [Ratio] 46.68 kg/i2Gxqrwzyn Moe Other [employer] Other 11-30-2022 10:30-0500Body bshlyd310.34 kgLastephon Rosa Other [employer] Other 11-30-2022 10:30-0500Diastolic blood tqhvpdzu26 mm[Hg] Liyah Rosa Other [employer] Other 11-30-2022 10:30-0500Systolic blood abfxqfhk567 mm[Hg] Liyah Rosa Other [employer] Other 11-03-2022 12:54-0400Body mijuvp625.7 cmJessica Clarke PA-C Work Phone: cTuscarawas HospitalYfrmeo68-84-3951 12:54-0400Body .54 kgHilary Young PA-C Work Phone: cTuscarawas HospitalUjlpdt31-70-9386 12:54-0400Diastolic blood iztezqes24 mm[Hg]Jessica Young PA-C Work Phone: cTuscarawas HospitalMnedyd03-88-4891 12:54-0400Heart uijw411 /minHilary Young PA-C Work Phone: cTuscarawas HospitalAfesae70-33-4755 12:54-0400Systolic blood arbjdbib938 mm[Hg]Jessica Young PA-C Work Phone: cTuscarawas HospitalBnaono05-09-8950 09:30-0400Body temperature 97 [degF]Infusion 10 Work Phone: [facility]11-03-2022 09:30-0400Diastolic blood dkugdibl71 mm[Hg]Infusion 10 Work Phone: [facility]11-03-2022 09:30-0400Heart rate79 /min Infusion 10 Work Phone: [facility]11-03-2022 09:30-0400Systolic blood pxjffidb324 mm[Hg]Infusion 10 Work Phone: [facility]07-27-2022 10:30-0400Body jowsvx088.99 Libby Rosa Other [employer] Other 07-27-2022 10:30-0400Body mass index (BMI) [Ratio] 45.55 kg/q5Yolpvmnxstephon Rosa Other [employer] Other 07-27-2022 10:30-0400Body oemiso270.89 kgLastephon Rosa Other [employer] Other 06-28-2022 08:42-0400Body tifbyx022 cmHilary Young PA-C Work Phone: [phone] HospitalYjsbfx92-21-1266 08:42-0400Body ppnjek744 kg Jessica Clarke PA-C Work Phone: [phone] westand Hddiyn39-85-4513 08:42-0400Diastolic blood sndzehso53 mm[Hg]Jessica Young PA-C Work Phone: [phone] HospitalAdlnbj61-45-8974 08:42-0400Heart rate88 /min Jessica Clarke PA-C Work Phone: [phone] HospitalPrhwgu45-75-9201 08:42-0400Systolic blood mm[Hg]Jessica Young PA-C Work Phone: [phone] HospitalPlfard15-62-2528 12:00-0400Body temperature 97.9 [degF]Infusion 2 Work Phone: [phone]05-02-2022 12:00-0400Diastolic blood wmseqqxw07 mm[Hg]Infusion 2 Work Phone: [phone]05-02-2022 12:00-0400Heart rate93 /min Infusion 2 Work Phone: [phone]05-02-2022 12:00-0400Respiratory rate 16 /minInfusion 2 Work Phone: [phone]05-02-2022 12:00-0400Systolic blood mm[Hg]Infusion 2 Work Phone: [phone]05-02-2022 08:00-0400Body saytnj323 cm Infusion 2 Work Phone: [phone]05-02-2022 08:00-0400Body nbzuwy791.94 kgInfusion 2 Work Phone: [phone]04-19-2022 10:45-0400Diastolic blood ktjgddfo93 mm[Hg]Services [facility] Work Phone: [facility]04-19-2022 10:45-0400 Heart rate91 /minServices [facility] Work Phone: [facility]04-19-2022 10:45-0400 Respiratory rate18 /minServices [employer] Phone: [phone] [place], [place] [address]04-19-2022 10:45-0400 SaO2% (BldA) [Mass fraction]99 %Services [employer] Phone: [phone] [place], [place] [address]04-19-2022 10:45-0400 Systolic blood mm[Hg]Services [employer] Phone: [phone] [place], [place] 276[address]04-19-2022 08:26-0400 Body nexuxg087.99 cmServices [employer] [facility] [employer] Phone: [phone] [place], [place] 276[address]04-19-2022 08:26-0400 Body mass index (BMI) [Ratio]43.4 kg/v0Oxpexpfo [employer] Phone: [phone] [place], [place] 276[address]04-19-2022 08:26-0400 Body wwkdavrrdsx16.2 [degF]Services [employer] Phone: [phone] [place], [place] [address]04-19-2022 08:26-0400 Body lledoc296.54 kgSerlower bucks hospital [employer] Phone: [phone]-[facility]03-28-2022 11:30-0400 Body uabjof399.99 Libby Rosa Other [employer] Other 03-28-2022 11:30-0400Body mass index (BMI) [Ratio] 43.45 kg/z0Zmtbfpgb Moe Other [employer] Other 03-28-2022 11:30-0400Body cycbgt912.54 kgLawrrachid LaurenMoe Other [employer] Other Encounters Encounter DateEncounter TypeCare ProviderFacilityStart: 41-45-3278nfdjbhxtcg Silvia TannaFacility:[place]Start: 10-27-2025 End: 62-76-8860Xoycrczmv encounterAshnancie SpencerersonProMedica Physicians NeuroSurgeryStart: 03-04-2025 End: 59-74-8847Mnazohqjylcdo procedureCandaayse Velez RNDosmith Albarado Juab [facility] - Medical OncologyStart: 03-04-2025 End: 36-62-0922Nfykur outpatient visit 40 minutesChaaline Mendoza MD Work Phone: Doanaelizabeth Albarado Juab [facility] - Medical OncologyComment on above:GBM (glioblastoma multiforme) ([facility]-HCC) (Primary Dx)Start: 03-04-2025 End: 16-39-3154temomgfkvvSRLR Tevin [facility] HospitalStart: 02-22-2025 End: 53-88-5373udssszkwkgSWGRF N [facility] HospitalStart: 02-17-2025 End: 26-03-3739zzyvtdqitcPojpeo TannaFacility:EU ueStart: 02-17-2025 End: 96-58-0654Nkjfsrg encounter procedureLacal Bustos [facility] start: 02-08-2025 End: 74-62-1332Phoqpe OnlyNot In System Ref ProvProMedica [place] Oncology - Radiation OncologyStart: 01-21-2025 End: 34-51-6147Vczhyz OnlyCaryn Tiell [facility] Oncology - Radiation OncologyComment on above:GBM (glioblastoma multiforme) ([facility]-HCC) (Primary Dx) Start: 01-20-2025 End: 36-93-0860egujvcgocjBSWA Tevin FRANKUnited [facility] Center HospitalStart: 01-15-2025 End: 88-25-0171wzajcxjeweUHUS J [facility] HospitalStart: 01-14-2025 End: 42-87-6462xlckwuzhqhQGH [facility] Work Phone: Start: 01-14-2025 End: 80-19-1581Sfohkef encounter procedureAbdul Adela MD-[facility] Work Phone: Start: 01-14-2025 End: 55-34-0612irpoovdviiOUAF [facility] HospitalStart: 01-13-2025 End: 01-95-0851Rgweqm WorkMarebonygoyo Adams GRAFSan Leandro Hospitalca [place] Oncology - Radiation OncologyStart: 01-12-2025 End: 96-49-6476Vhiyvootk Result EncounterGeneric External Data ProviderNOMS External Department UnsolicitedStart: 01-12-2025 End: 13-50-7635Icnntgexn Result EncounterGeneric External Data ProviderNOMS External Department UnsolicitedStart: 01-12-2025 End: 72-99-0501nfbqzciudkNXJB [facility] HospitalStart: 01-11-2025 End: 59-38-6933ibeqlhcswoUKXC [facility] HospitalStart: 01-08-2025 End: 70-43-5986judeflrgllHNSE [facility] HospitalStart: 01-07-2025 End: 51-19-7501fgjfsuadskDPIR [facility] HospitalStart: 01-06-2025 End: 37-17-8133ayfljqzdpaFEPX [facility] HospitalStart: 01-05-2025 End: 53-01-8152Cbolmeagv encounterDanielle Travillihawa HProMedica Speciality PharmacyComment on above:Prior Authorization (TEMOZOLOMIDE)Start: 01-05-2025 End: 99-45-6164pinvmnaxyfWMPI [facility] HospitalStart: 01-04-2025 End: 98-41-0898lwdtctopdrMLGE [facility] HospitalStart: 01-01-2025 End: 60-24-1054qjunnxkvujJJJM [facility] HospitalStart: 12-31-2024 End: 08-65-3033MmggwhGodnl N Xia MD Work Phone: Meera Alves [facility] - Medical OncologyComment on above:GBM (glioblastoma multiforme) ([facility]-HCC)Start: 12-30-2024 End: 89-85-0634ogxwjhfgldGSBT J [facility] HospitalStart: 12-29-2024 End: 56-49-0142smiumjzbqkZKJ [facility] Work Phone: Start: 12-29-2024 End: 76-88-8526Zgzrdjn encounter procedureC[facility] Work Phone: Start: 12-29-2024 End: 20-56-9477qbmlkipupfIXJD J [facility] HospitalStart: 12-25-2024 End: 44-03-6417Hdzvnd outpatient visit 25 minutesGuillermo Mendoza MD Work Phone: Meera Albarado Juab [facility] - Medical OncologyComment on above:GBM (glioblastoma multiforme) ([facility]-HCC) (Primary Dx)Start: 12-25-2024 End: 19-76-0268Rcgpal Ирина Albarado [facility] - Medical OncologyComment on above:GBM (glioblastoma multiforme) ([facility]-HCC) (Primary Dx); ThrombocytopeniaStart: 12-24-2024 End: 39-91-4052fsfuybizcxAZHP J [facility] PPGStart: 12-23-2024 End: 33-85-7625btvptharusTMGW J [facility] HospitalStart: 12-22-2024 End: 51-51-9191idkgztlxapRKYL J AICUnited Memorial Medical Center HospitalStart: 12-19-2024 End: 87-09-5887izhmqjyoevBYBC P POTHIREDDYProMedgenet Bonif[place] HospitalStart: 12-18-2024 End: 07-02-8801ubbtiijdpfDLHG J AICUnited Memorial Medical Center HospitalStart: 12-17-2024 End: 23-79-0407llihdtlusqDEPR Tevin [facility] HospitalStart: 12-16-2024 End: 95-73-3532qhoaakpintDSNI [facility] HospitalStart: 12-15-2024 End: 21-05-8626XwmsjzNorwalk Memorial Hospital [facility] - Radiation OncologyStart: 12-14-2024 End: 12-04-4549hahitllxgcBWKH Tevin [facility] HospitalStart: 12-11-2024 End: 90-74-2244ykbuhmpzafCMTQ Tevin [facility] HospitalStart: 12-10-2024 End: 74-39-3395Wfipppkduaqnj procedureShe Alves [facility] Medical OncologyStart: 12-10-2024 End: 60-19-5457Ulizum outpatient visit 25 minutesChaaline Mendoza MD Work Phone: Meera Albarado Juab [facility] Medical OncologyComment on above:GBM (glioblastoma multiforme) ([facility]-HCC) (Primary Dx); ThrombocytopeniaStart: 12-10-2024 End: 56-68-8887bjmogsjverVAMB Tevin [facility] HospitalStart: 12-09-2024 End: 18-46-2230mznlwzwqqxPXCM Tevin [facility] HospitalStart: 12-08-2024 End: 20-68-7381gipnkokcqkTUSP Tevin [facility] HospitalStart: 12-07-2024 End: 08-76-6591qelbmteesxJJXL [facility]evin [facility] HospitalStart: 12-04-2024 End: 44-62-2993Jsuhoauzovivx procedureShe Alves [facility] Medical OncologyStart: 50-12-2735izuhelqytbZOYQ J [facility] PPGStart: 12-03-2024 End: 02-36-3221Ltlqvjhyogjog procedureCaryn David [facility] Oncology - Radiation OncologyStart: 11-30-2024 End: 32-10-9094Efpkieefesnhx procedureCaryn David RNProMedica [place] Oncology - Radiation OncologyStart: 11-27-2024 End: 94-58-3579Vvfdyxdv ReferredChristine Shoaib Lantigua DO-LAB [facility] Spec [place] HospStart: 11-27-2024 End: 28-86-3847Prxzvoxim Result EncounterGeneric External Data ProviderNOMS External Department UnsolicitedStart: 11-27-2024 End: 68-51-1908Mjqxyxhhb Result EncounterGeneric External Data ProviderNOMS External Department UnsolicitedStart: 11-27-2024 End: 02-06-9900Jldcbi OnlyFulton County [facility] - Radiation OncologyStart: 11-25-2024 End: 34-23-4200ifjxnbihgtXJDXCleveland Clinic [facility] Hospitaltart: 11-24-2024 End: 42-57-3565Yhkgiqddpsjhl procedureCanpao Albarado [facility] - Medical OncologyStart: 11-24-2024 End: 38-73-0944azwllyxzhyDVGEIMWH E PERRYFacility:[place]Start: 11-24-2024 End: 86-18-5745Mhciphv encounter procedureREGINA MATTHEWS [facility] start: 11-19-2024 End: 72-02-7165Aelciac encounter procedureStorm Chapman MD-[facility] Work Phone: Start: 11-19-2024 End: 62-34-0256arrickotwrQWXDetwiler [facility] Work Phone: Comment on above:GBM (glioblastoma multiforme) ([facility]- HCC) (Primary Dx)Start: 60-92-1984gibqkyubmzFIXPMercy Hospital [facility] PPGStart: 11-13-2024 End: 53-71-9823Hcvdsqxnw encounterGuillermo Mendoza MD Work Phone: [facility] Oncology - Radiation OncologyStart: 11-13-2024 End: 74-56-5441sbcdbqahreOMLF [facility] HospitalStart: 11-13-2024 End: 05-76-1340jdakzpeqnlUTMH [facility] HospitalStart: 11-13-2024 End: 43-71-3712qrdbluepebKETQMiners' Colfax Medical Center HospitalStart: 11-12-2024 End: 02-37-3982Hosjqt outpatient new 60 minutesCorinang Mallorie Mendoza MD Work Phone: Doana Verena [facility] - Medical OncologyComment on above:GBM (glioblastoma multiforme) (CMS-HCC) (Primary Dx)Start: 11-12-2024 End: 50-05-1818Ozzisr OnlyNancy Hernandez [facility] Oncology - Radiation OncologyComment on above:Glioblastoma (CMS-HCC) (Primary Dx)Start: 11-11-2024 End: 04-18-5896Sgqweeuzg encounterLoryael Coleman [facility] CENTERProMedica Hematology Oncology, A Department of [facility] HospitalComment on above:office noteReceived referral Radiation consult lvmStart: 11-10-2024 End: 64-73-8056Yyikii follow up visit related to original pxPatricia Garcia TILE FITTER-MEDICAL SECRETARY Work Phone: [facility] NeuroSurgeryComment on above: Brain tumor (CMS-HCC) (Primary Dx); Double visionStart: 11-10-2024 End: 69-97-4927evcafssmpcAUOE [facility] Ambulatory PPGStart: 11-07-2024 End: 71-36-4453Crscdnuuv Result EncounterSary Colin MD Work Phone: noms External Department UnsolicitedStart: 11-07-2024 End: 41-70-0642Lnibeepsa Result EncounterSary Colin MD Work Phone: noms External Department UnsolicitedStart: 10-17-2024 End: 26-00-6506Nfpaldlna Result EncounterGeneric External Data ProviderNOMS External Department UnsolicitedStart: 10-17-2024 End: 06-93-6654Cxmwgcpgz Result EncounterGeneric External Data ProviderNOMS External Department UnsolicitedStart: 10-17-2024 End: 45-78-4150ylwoujhzjpHisnkfy Grzegorz [facility] Work Phone: Start: 10-17-2024 End: 92-24-5231Evlpskbj ReferredTripp Gruber MD Work Phone: [facility]-LAB [facility] Spec [place] HospStart: 10-09-2024 End: 09-32-9711mvlrkwhcoaNRWJURMD E PERRYFacility:EU [place]Start: 10-06-2024 ambulatoryLauren TannaFacility:EU [place]Start: 09-29-2024 End: 71-36-9507Rzpsdjmxl encounterAnya Baker Physicians NeuroSurgeryComment on above:incisionStart: 09-19-2024 End: 63-91-6441bltlqhaitqLDHVJVW PROVIDERFacility:METROHealthStart: 09-18-2024 End: 51-48-3569Teqaclufng and management of inpatientMuhammad Rosmery SARGENT Work Phone: [facility] - GEN 9 AcuteStart: 09-18-2024 End: 80-05-0310Nriilkrcy Result EncounterSary Colin MD Work Phone: noms External Department UnsolicitedStart: 09-18-2024 End: 78-29-0893Mdkyegzki Result EncounterSary Colin MD Work Phone: noms External Department UnsolicitedStart: 09-16-2024 End: 83-69-9486ejftpbuphpUOOM J [facility] HospitalStart: 09-16-2024 End: 75-46-7167Hmbike outpatient new 20 minutesMaruy Keri Castillo TILE FITTER-MEDICAL SECRETARY Work Phone: [facility] - Wound Care ClinicComment on above:Dermatitis associated with moisture (Primary Dx); Pressure injury of left buttock, stage 2 ([facility]-HCC)Start: 08-28-2024 End: 01-00-7231Zskakvqhs department patient visitAMBER [facility] Medical Centertart: 08-28-2024 End: 14-24-0082Ojuypxlnrf and management of [facility]osaSA Abarca [facility] Medical Centertart: 08-23-2024 End: 72-94-6279Ffrleqcns Result EncounterGeneric External Data ProviderNOMS External Department UnsolicitedStart: 08-23-2024 End: 45-70-4259Omyrinrto Result EncounterGeneric External Data ProviderNOMS External Department UnsolicitedStart: 08-23-2024 End: 19-94-2353HkhfgcBogj Aichholz CARDIOLOGY FELLOW Work Phone: noms CWM FMComment on above:Mixed stress and urge urinary incontinence (Primary Dx); Yeast dermatitisStart: 08-22-2024 End: 51-10-3516jaatyqcqseHyrnv T [facility] Work Phone: Start: 08-22-2024 End: 48-66-0323Nrkodmna ReferredTripp Gruber MD Work Phone: [facility]-LAB Path Spec [place] HospStart: 08-22-2024 End: 27-81-0406Gwelyrezl Result EncounterGeneric External Data ProviderNOMS External Department UnsolicitedStart: 08-22-2024 End: 99-75-5762Vuxeuytwa Result EncounterGeneric External Data ProviderNOMS External Department UnsolicitedStart: 08-18-2024 End: 41-38-0018Bprfjs flowsRyan Gracia CARDIOLOGY FELLOW Work Phone: noms CWM FMStart: 08-18-2024 End: 89-90-7104Nynajh Sagar Gracia CARDIOLOGY FELLOW Work Phone: noms CWM FMStart: 08-18-2024 End: 17-69-3327Xkvaty outpatient visit 25 minutesLisa Aichholz CARDIOLOGY FELLOW Work Phone: noms CWM FMComment on above:Generalized anxiety disorder with panic attacks (CMS/HCC) (Primary Dx); Morbid (severe) obesity due to excess calories (CMS/HCC); Major depressive disorder, recurrent, moderate (CMS/HCC); Primary insomniaStart: 08-18-2024 End: 32-92-3894jdwpirqyigDZXP AICHHOLZNot AvailableStart: 08-03-2024 End: 82-82-5712Hyheczrdf encounterElva Rodriguez CARDIOLOGY FELLOW Work Phone: noms [facility] NEURO 210Start: 07-07-2024 End: 63-08-9115Acegbh flowsheetLisa Aichholz CARDIOLOGY FELLOW Work Phone: noms CWM FMStart: 07-07-2024 End: 69-86-8837Jwtjth flowsheetLisa Aichholz CARDIOLOGY FELLOW Work Phone: noms CWM FMStart: 07-07-2024 End: 80-88-9017mexbpobykxAUOG AICHHOLZNot AvailableStart: 06-30-2024 End: 89-35-9211Mojhlgmna Result EncounterLisa Aichholz CARDIOLOGY FELLOW Work Phone: noms External Department UnsolicitedStart: 06-30-2024 End: 42-15-3764Eztrofwfw Result EncounterLisa Aichholz CARDIOLOGY FELLOW Work Phone: noms External Department UnsolicitedStart: 06-17-2024 End: 04-57-2492Trzzdk flowsheetBrittany Boone CARDIOLOGY FELLOW Work Phone: noms CWM FMStart: 06-17-2024 End: 23-78-7030Pjgpue flowsheetBrittany Boone CARDIOLOGY FELLOW Work Phone: noms CWM FMStart: 06-17-2024 End: 77-96-3951Gvmtrk outpatient visit 10 minutesBradelina Boone CARDIOLOGY FELLOW Work Phone: NOMS CWM FMComment on above:Acute non-recurrent frontal sinusitis (Primary Dx)Start: 06-17-2024 End: 41-39-1349osdczrksroDLXATQCJ FITZPATRICKNot AvailableStart: 05-18-2024 End: 87-71-8792Koslwj flowsheetFred Frankhvicky CARDIOLOGY FELLOW Work Phone: NOOE CWM FMStart: 05-18-2024 End: 85-57-2404Pqvutf flowsheetLisa Aichholz CARDIOLOGY FELLOW Work Phone: NOBB CWM FMStart: 05-18-2024 End: 25-94-7513Pbwsgsy encounter procedureLisa Basil CARDIOLOGY FELLOW Work Phone: NOVZ HealthcareComment on above:Encounter for subsequent annual wellness visit (AWV) in [...] (CMS/HCC); Generalized anxiety disorder with panic attacks (CMS/HCC)Start: 05-18-2024 End: 99-36-3344gsqlzdtgbhYQZQ ROSALINDAHOLZNot AvailableStart: 05-07-2024 End: 31-14-2089Yqjzfg Cristian Clarke PA-C Work Phone: [facility] CenterStart: 05-04-2024 End: 38-03-9517Ihdiuclhd encounterSammantha Nghia PTNOMS CI PTComment on above:re: PT Eval tomorrow; Call BackStart: 04-27-2024 End: 50-77-3635Scfmaqnvh encounterLisa Basil CARDIOLOGY FELLOW Work Phone: NOYO CWM FMStart: 04-27-2024 End: 68-50-2085Ahtxyjz encounter procedureYahaira IBANEZ Work Phone: noms NB ORTHOComment on above:Adhesive capsulitis of left shoulder (Primary Dx); S/P arthroscopy of left shoulderStart: 04-27-2024 End: 03-60-0222cdxbhaywiuLSQP D Curt AvailableStart: 04-26-2024 End: 40-80-7146DqgjejIgic Aicberenicevicky CARDIOLOGY FELLOW Work Phone: NOMS CWM FMComment on above:Anxiety and depression (CMS/HCC)Start: 04-15-2024 End: 49-54-5709LjranaPuqk Aicvicky CARDIOLOGY FELLOW Work Phone: NOMS CWM FMComment on above:Acute cough (Primary Dx) Start: 04-14-2024 End: 51-86-5856KcfkztXykj Aicvicky CARDIOLOGY FELLOW Work Phone: NOMS CWM FMComment on above:Acute non-recurrent sinusitis of other sinus (Primary Dx)Start: 04-01-2024 End: 47-46-2879Strtjcosm Reba Kumar PTNOMS CI PTComment on above:re: PT (She called noting w/ the progress of PT so far she is dealing w/ great pain. She said she has a fu w/ doctor in the beginning of April and she'd like to hold-off till after. I indicated her auth ending date is 04/10/24 and she said she does not want to cont till after fu.)Start: 03-25-2024 End: 19-78-4349Cuchew estebanPhil Pelletier NGUYENNOMS CI PTStart: 03-25-2024 End: 52-80-5774Frfhrg flowsPhil Pelletier NGUYENNOMS CI PTStart: 03-25-2024 End: 45-01-7801syfbcifgynJfvybjv Lawrence PTANOMS CI PTComment on above:Left shoulder pain, unspecified chronicity (Primary Dx); S/P arthroscopy of left shoulderStart: 03-13-2024 End: 22-65-9340Udtere Geovanna Pelletier NGUYENNOMS CI PTStart: 03-13-2024 End: 54-37-9623Mmaoqe Geovanna Pelletier NGUYENNOMS CI PTStart: 03-13-2024 End: 44-37-3210wffhfjzminJelyeye Lawrence PTANOMS CI PTComment on above:Left shoulder pain, unspecified chronicity (Primary Dx); S/P arthroscopy of left shoulderStart: 03-11-2024 End: 70-45-2297Urkpzg flowsheetMichael T Brooks DO Work Phone: [facility] SWS ORTHOAOStart: 03-11-2024 End: 65-78-3185Vfnysx flowsheetMichael T Brooks DO Work Phone: [facility] SWS ORTHOAOStart: 03-11-2024 End: 44-12-3693jogtnvaiakUWYVNWI T POWERSNot AvailableStart: 03-09-2024 End: 95-43-4868Jnhggdkas encounterMichael T Brooks DO Work Phone: [facility] NB ORTHOStart: 03-06-2024 End: 48-82-4521xwkipcfpcuAkauasc Lawrence PTANOMS CI PTComment on above:S/P arthroscopy of left shoulder (Primary Dx)Start: 03-05-2024 End: 48-46-0678Aqgvwc flowsheetLisa Mesaz CARDIOLOGY FELLOW Work Phone: [facility] CWM FMStart: 03-05-2024 End: 77-64-5628Ipiekm flowsheetLisa Bonitaz CARDIOLOGY FELLOW Work Phone: [facility] CWM FMStart: 03-05-2024 End: 37-44-1617Pepbxa outpatient visit 15 minutesLisa Basil CARDIOLOGY FELLOW Work Phone: N[facility] CWM FMComment on above:Anxiety and depression (CMS/HCC) (Primary Dx); Needs flu shot; Candidiasis of skinStart: 03-05-2024 End: 42-34-7990dwwcjnxhuvZVLI MONIKAHHOLZNot AvailableStart: 03-03-2024 End: 57-80-7858Owtbwx Geovanna Pelletier NGUYENNOMS CI PTStart: 03-03-2024 End: 81-35-0682Uroiky eGovanna Pelletier PTANOMS CI PTStart: 03-03-2024 End: 90-69-0904fatukiolvuWcicnpd Lawrence PTANOMS CI PTComment on above:S/P arthroscopy of left shoulder (Primary Dx)Start: 02-28-2024 End: 64-11-7777Hvrshv flowsheetSammantha Kumar PTNOMS CI PTStart: 02-28-2024 End: 45-09-1469Dlpvbb flowsheetSammantha Kumar PTNOMS CI PTStart: 02-28-2024 End: 41-40-1877htfgqvyaviKqfekgpup Kumar PTNOMS CI PTComment on above:S/P arthroscopy of left shoulderStart: 02-25-2024 End: 79-74-3713Xunviyb encounter procedureMichael T Brooks DO Work Phone: noms NB ORTHOComment on above:S/P arthroscopy of left shoulder (Primary Dx)Start: 02-25-2024 End: 16-45-4133cixcpbcepvCPRRUMB T POWERSNot AvailableStart: 02-14-2024 End: 73-60-2724Mfoqfapqg encounterMichael T Brooks DO Work Phone: noms NB ORTHOStart: 02-13-2024 End: 83-68-8528Ztnlgvivt encounterMichael T Brooks DO Work Phone: noms NB ORTHOStart: 02-10-2024 End: 01-76-0398Pepluquhv to same day surgery centerMichael T Brooks [facility] Start: 47-73-9412ugagbzbhkrNXOLT ROCKFacility:[facility] Start: 02-03-2024 End: 66-40-5405Chxlmz outpatient visit 15 Dylan Gracia CARDIOLOGY FELLOW Work Phone: noms CWM FMComment on above:Diverticulitis (Primary Dx); Class 3 severe obesity without serious comorbidity with body mass index (BMI) of 45.0 to 49.9 in adult, unspecified obesity type (CMS/HCC)Start: 02-03-2024 End: 14-96-9789Twukiw flowsheetLisa Aichholz CARDIOLOGY FELLOW Work Phone: [facility] CWM FMStart: 02-03-2024 End: 86-79-5840Rnqspm flowsheetLisa Aichholz CARDIOLOGY FELLOW Work Phone: [facility] CWM FMStart: 02-03-2024 End: 69-35-8571weixjkxfbqWCLR AICHHOLZNot AvailableStart: 01-30-2024 End: 55-72-7736Tieoyp flowsheetMichael T Brooks DO Work Phone: NOMS ORTHOStart: 01-30-2024 End: 53-57-4678Alaloj flowsheetMichael T Brooks DO Work Phone: N[facility]S ORTHOStart: 01-30-2024 End: 26-64-0383Iepolmh encounter procedureMichael T Brooks DO Work Phone: NOMS NB ORTHOComment on above:Pre-op testing (Primary Dx); Rotator cuff impingement syndrome of left shoulderStart: 01-30-2024 End: 52-30-5677Nfluliu encounter statusMichael T Brooks DO Work Phone: NOMS HealthcareStart: 01-30-2024 End: 68-34-6358bjbtzsgtjjZGZSUEA T POWERSNot AvailableStart: 01-29-2024 End: 82-50-4232Wzbpyy OnlyLisa Monikaberenicevicky CARDIOLOGY FELLOW Work Phone: N[facility] CWM FMComment on above:Multiple sclerosis (CMS/HCC) (Primary Dx)Start: 01-23-2024 End: 86-31-5257Hwvruxnbw Result EncounterLisa Aichholz CARDIOLOGY FELLOW Work Phone: NOMS External Department UnsolicitedStart: 01-23-2024 End: 99-25-5348Pozbtcflp Result EncounterLisa Aichholz CARDIOLOGY FELLOW Work Phone: NOMS External Department UnsolicitedStart: 01-23-2024 End: 70-54-1975wzgpzvqcnqWTPZQPBC FITLeePATRICKNot AvailableStart: 01-14-2024 End: 59-23-8740Pxgwznrzs encounterHianca Clarke PA-C Work Phone: mellen CenterComment on above:OrdersStart: 01-06-2024 End: 58-91-9798oxvvawdytlWMOP AICHHOLZNot AvailableStart: 12-24-2023 End: 74-59-6856Jma-admission assessmentMichael T Brooks [facility] Start: 12-24-2023 End: 30-30-4125ytsluhauvkYFWDPTP T POWERSNot AvailableStart: 53-52-8643Jrvplebnp encounterNurse [facility] Work Phone: InfusionStart: 12-02-2023 End: 68-86-7664aodfxoffsdDOBF AICHHOLZNot AvailableStart: 47-66-7247Nhegvh Only Jessica Clarke PA-C Work Phone: mellen CenterComment on above:Multiple sclerosis (HCC) (Primary Dx); Vitamin D deficiencyStart: 99-82-5986Wobjbh OnlySarthak Escobar MD, PhD Work Phone: mell[facility] CenterStart: 11-13-2023 End: 95-32-5797juoimbpuiaHNVX D HILLSNot AvailableStart: 11-05-2023 End: 07-44-9859ckinalrqgeFARE D HILLSNot AvailableStart: 10-10-2023 End: 83-02-7307knhcpgfkirZACO AICHHOLZNot AvailableStart: 10-07-2023 End: 55-48-2561xfijxdrzznSTRU D HILLSNot AvailableStart: 09-06-2023 End: 33-79-8395uawccmemhzLtkiluj Bonus PA-C Work Phone: [facility] InstituteComment on above:Left arm weakness (Primary Dx)Start: 09-06-2023 End: 26-27-9901Pxpppalobwiw consultation with Marydoc Christina FIGUEROA Work Phone: CCSAMAR[facility] MAINStart: 27-21-8176qyrxozbqbw Jessica Clarke PA-C Work Phone: mellen CenterComment on above:SpineStart: 08-22-2023 Chart abstractingNone (Historical)NeurologyStart: 45-59-6501Bszmhwuvu encounter Jessica Clarke PA-C Work Phone: mellen CenterComment on above:Patient QuestionStart: 46-14-9554zrqketnfrpCUFLVUT MCDOWELLFacility:[facility] Hospitaltart: 37-95-7574Eupnpuqcg encounterJessica Clarke PA-C Work Phone: mellen CenterComment on above:Orders (Order for MRI needed for Brain and Cervical)Start: 07-10-2023 End: 86-57-4818dmpwkpsslnXGFRJC YOUNGFacility:[facility] Hospitaltart: 07-10-2023 End: 32-47-1888Sgdhpmt encounter procedureGirgis E Paris DO Work Phone: Pain ManagementComment on above:Cervical disc disorder with radiculopathy (Primary Dx); Cervical stenosis of spine; Chronic neck painStart: 93-99-0748czevmughbdDiynjr E Paris DO Work Phone: Pazr ManagementComment on above:Pain Questionnaire Start: 01-32-9536Ztjzgtvida Lunsford MD Work Phone: [facility] CWM IMStart: 64-92-9651Ukfdggvida Lunsford MD Work Phone: [facility] CWM IMStart: 94-26-6284Z-mail encounter from caregiverGirgis E Paris DO Work Phone: CCF AALIYAH CStart: 06-26-2023 End: 93-91-5532Vqlrbk outpatient visit 25 minutesShaikh Jonn BENITEZ Work Phone: noms CWM IMComment on above:Multiple sclerosis (CMS/HCC) (Primary Dx); Primary hypertension (CMS/HCC); Anxiety and depression (CMS/HCC); COPD with exacerbation (CMS/HCC); Non-recurrent acute suppurative otitis media of left ear without spontaneous rupture of tympanic membraneStart: 05-22-2023 End: 62-51-0664lxfcbjiczaNQIQX MAHAJANFacility:[facility] Hospitaltart: 05-02-2023 End: 86-83-0356lyzymjqmtuJqktze Young PA-C Work Phone: mellen CenterComment on above:Multiple sclerosis (HCC) (Primary Dx)Start: 05-02-2023 End: 76-60-7064Gaiodtijpnwx consultation with patientHilaagus Young PA-C Work Phone: [facility] MAINStart: 29-67-8434sxneuvbvbg Jessica Clarke PA-C Work Phone: mellen CenterComment on above:SkullStart: 04-19-2023 ambulatoryHilary Young PA-C Work Phone: mellen CenterComment on above:SkullStart: 10-17-2022 ambulatoryMazen Karla BENITEZ Work Phone: Internal Medicine Main CampusStart: 10-01-2022 End: 12-73-2139sbuzplfnogCDN FRED GRACIAFacility:C3Bvqzs: 34-26-9199tjkitbairi MEDICAL SECRETARY FRED GRACIAFacility:C9Shayw: 09-21-2022 End: 26-43-8777clhjsxomesPVNH TAMLYN .Facility:I3Dokzo: 62-72-1139Ysamwc Only Jessica Young PA-C Work Phone: mellen CenterComment on above:Multiple sclerosis, relapsing-remitting (HCC) (Primary Dx)Start: 06-05-2022 End: 70-44-4316gmkosuceiwAS DOCTOR MISCFacility:Z2Ldivc: 04-18-2022 End: 20-66-7041sljiuswmtfZyohludv McCormack Other [facility] [employer] Other Start: 78-88-7634Jyrweu outpatient visit 15 minutes Liyah Latham GastroenterologyStart: 93-19-0962Isfudfmbk encounterValdez Acosta MD Work Phone: [phone] InstituteComment on above:Patient UpdateStart: 03-22-2022 End: 29-03-6688Velhgxc encounter procedureHilaagus Clarke PA-C Work Phone: mellen CenterComment on above:Multiple sclerosis, relapsing-remitting (HCC) (Primary Dx)Start: 03-22-2022 End: 92-04-7569bpzmmgyqbjRikzzuas [facility] Work Phone: Multiple SclerosisComment on above:Multiple sclerosis (HCC) (Primary Dx)Start: 45-82-5184Pxssfu Shruthi Escobar MD, PhD Work Phone: mellen CenterStart: 03-07-2022 End: 59-34-8337nruxtfyewzBRE FRED GRACIAFacility:M6Pdhvs: 69-76-7821gmvuljaeqf Valdez Acosta MD Work Phone: [facility] Hospitaltart: 02-12-2022 Telephone encounterHianca Clarke PA-C Work Phone: NeurologyComment on above:Appointment (Called pt LVM to see about setting up pt and psycology.)Start: 01-16-2022 End: 55-12-7106ydqtwnugjzEsiooppap N Duncan OTR/L Work Phone: [facility] Occupational Therapy Comment on above:Multiple sclerosis, relapsing-remitting (HCC)Start: 12-13-2021 End: 84-36-6817itlmbntmjcCitndwti McCormack Other [facility] [employer] Other Start: 79-53-2934Mrucsh outpatient visit 15 minutes Liyah Latham GastroenterologyStart: 02-57-9524boaitrtpijHlzqg Dahbar MD Work Phone: [facility]Start: 11-14-2021 End: 57-03-3516Idfzsge encounter procedureJessica Clarke PA-C Work Phone: mellen CenterComment on above:Multiple sclerosis, relapsing-remitting (HCC) (Primary Dx)Start: 11-14-2021 End: 78-71-8200Phcnlctjdr hospital visit by Juan Luis Manning (I-Stat/3t) Work Phone: RadiologyComment on above:Multiple sclerosis, relapsing-remitting (HCC) [G35]Start: 09-18-2021 End: 39-08-2247iskwykaxjqEfevkkia [place] Chair 2 Work Phone: Multiple SclerosisComment on above:Multiple sclerosis (HCC) (Primary Dx); Multiple sclerosis, relapsing-remitting (HCC)Start: 09-15-2021 End: 52-58-8606ocoobulqwmPzpbys Young PA-C Work Phone: mellen CenterComment on above:Multiple sclerosis, relapsing-remitting (HCC)Start: 09-15-2021 End: 48-95-0737Isnipcyjwvvx consultation with Senait Clarke PA-C Work Phone: cTRIHEALTH MAINStart: 09-14-2021 End: 77-17-5096mahbeiybnxThcaigla McCormack Other [employer] Other Start: 97-28-6745Ckaicbkcv encounterLastephon Rosa [facility] Referral CoordinatorStart: 09-05-2021 End: 92-96-3009Mmelsspgy to same day surgery centerServices [employer] Work Phone: [facility] HealthStart: 09-01-2021 End: 52-74-7873Xmboeuv encounter procedureServMartin General Hospital Work Phone: [facility] Yvu-Njx-Qxojdoyx Testing Start: 08-14-2021 End: 58-48-1614egyzextadfNoxcqikx McCormack Other [place] [employer] Other Start: 33-69-6193Uondaq outpatient new 45 minutes Liyah RosaFPG GastroenterologyStart: 07-28-2020 End: 28-04-9979Tfehdfh encounter procedureDiclaire Shaikh Work Phone: [facility] Work Phone: start: 12-20-2016 End: 67-47-7136CwfcqtdxkyXKYKT L MEDICAL SECRETARY ROCKFacility:RESPStart: 27-35-9324Blauwut encounter statusHianca Clarke PA-C Work Phone: [facility] Procedures DateProcedureProcedure DetailPerforming ClinicianStart: 65-20-9455HQEYPODMJ COURSE SUMMARYNot In System Ref ProvStart: 20-79-3083HP LUMBAR SPINE 2 OR 3V Generic External Data ProviderStart: 49-60-8841Vlvvgs-up visitFollow-upPATRICIA MILLERStart: 31-67-6733Ausjqe-up visitFollow-upCHANG N XIAStart: 35-21-4629HZZBV CULTURE 1Generic External Data ProviderStart: 51-85-4238Ruwtk Won Holguin MD Work Phone: Start: 13-27-8003TIO BASIC METABOLIC PANELSary Colin MD Work Phone: Start: 50-84-0889Tnews cultureDjuliette Gruber MD Work Phone: Start: 49-51-0642JUVFV CULTURE - FRGeneric External Data ProviderStart: 39-83-3478Wuvrrkzjqu exam swallow function contrast study Jesi E Phlipot TILE FITTER-MEDICAL SECRETARY Work Phone: Start: 14-35-0010Kkulb metabolic panel calcium total Sandie Davila PA Work Phone: Start: 09-28-3512Excsh metabolic panel calcium total Sandie IBANEZ Work Phone: Start: 01-18-8074Omqsnqbgkq exam chest single view Anjelica Venegas TILE FITTER-MEDICAL SECRETARY Work Phone: Start: 41-83-7635Dvcgs of magnesiumJair Espinal MD Work Phone: Start: 87-88-8017Husmg metabolic panel calcium total Sandie IBANEZ Work Phone: Start: 58-03-9330Zdfvuqhjrw exam swallow function contrast studyJopranav Zarate TILE FITTER-[facility] Work Phone: Start: 12-97-8504Wamjqqokccuiu metabolic panelJair Espinal MD Work Phone: Start: 12-75-5826Mn head/brain w/o contrast material Ibeth Brody PA-C Work Phone: Start: 91-86-4749Euwovboywc exam abdomen 1 viewJair Espinal MD Work Phone: Start: 54-56-2459LAMTBSD Velia Larios MD Work Phone: Start: 09-23-2024 End: 60-80-2855RBHZVYTQR CRANIOTOMY EXCISION TUMORJair Espinal MD Work Phone: Start: 77-60-5358Nygubomdhl exam chest single view Anjelica Verena Rubi TILE FITTER-[facility] Work Phone: Start: 60-17-9056Uuunu metabolic panel calcium total Sandie IBANEZ Work Phone: Start: 07-13-3800VPRJUULE ABORGlenys Larios MD Work Phone: Start: 52-34-4948Qvqrykiu screenJulio Fernandez MD Work Phone: Start: 40-05-2800Ordrqofo screenFRED MESAZComment on above:Performed By: #### TNIHS1 #### [facility] ([facility]) [address] [place] [address] VIRStart: 35-07-1939Qhuhb typing serologic aboBritney R Bao TILE FITTER-MEDICAL SECRETARY Work Phone: Start: 83-30-9813Ztwpkgygozi panelMiriam Church MD Work Phone: Start: 85-86-4116YLYXJRWR ABORHBrilance Gore TILE FITTER-MEDICAL SECRETARY Work Phone: Start: 16-66-7568HW ECHO COMPLETE W CONTRASTStephen P Romain FIGUEROA Work Phone: Start: 17-55-5372Jbgyxqdjcxt panelMiriam Church MD Work Phone: Start: 06-88-8540Rkk routine ecg w/least 12 lds trcg only w/o i&rStephanie L Veselka TILE FITTER-MEDICAL SECRETARY Work Phone: Start: 06-01-8386Dqzbq metabolic panel calcium total Sandie IBANEZ Work Phone: Start: 80-37-4180Ekbp screen quantitative vancomycin Anjelica L Veselka TILE FITTER-MEDICAL SECRETARY Work Phone: Start: 92-25-8569Tftfqipvknb panelMiriam Church MD Work Phone: Start: 34-83-5542Yqnvlek electrophoretic fractj&quantj serumRamy Goyo Church MD Work Phone: Start: 46-41-3677Msmi screen quantitative vancomycin Rom Petrisor Avasilcai TILE FITTER-MEDICAL SECRETARY Work Phone: Start: 36-49-3367Zdrifntrcdr panelMiriam Church MD Work Phone: Start: 74-23-0032Giqov metabolic panel calcium total Sandie IBANEZ Work Phone: Start: 63-96-7997Ffte screen quantitative vancomycin Rom Petrisor Avasilcai TILE FITTER-MEDICAL SECRETARY Work Phone: Start: 85-61-8098Wqaiqvfmcnj panelMiriam Church MD Work Phone: Start: 64-75-3664Fkpuxivwqr exam abdomen 1 Leland Lozano TILE FITTER-MEDICAL SECRETARY Work Phone: Start: 83-00-1281Yq abdomen & pelvis w/o contrast materialScott Chet Jones MD Work Phone: Start: 48-39-4022Ojcbelbanjr panelRamy Goyo Church MD Work Phone: Start: 09-20-2024 End: 97-70-7497Hheaakh bacterial blood aerobic w/id isolatesSteffanie Pedraza Blake TILE FITTER-MEDICAL SECRETARY Work Phone: Start: 82-52-6987Ilrpl metabolic panel calcium total Sandie IBANEZ Work Phone: Start: 14-00-2941Odk brain brain stem w/o w/contrast Elif Zarate TILE FITTER-MEDICAL SECRETARY Work Phone: Start: 54-16-5348Xhxgqzbiwid panelRamkami Church MD Work Phone: Start: 14-07-7089Qfwqkvlarlb panelMiriam Church MD Work Phone: Start: 75-22-2441Zp retroperitoneal real time w/image completeRamy Goyo Church MD Work Phone: Start: 64-95-0485Dsunithmgyr antibodies anaRamy Goyo Church MD Work Phone: Start: 09-19-2024 End: 50-56-6185Fgfjxjselzy panelSandie IBANEZ Work Phone: Start: 00-97-8104JXAMAGC GLUCOSESheila Jung MD Work Phone: Start: 10-10-3770Wcpbu gases any combination ph pco2 po2 co2 hol1Quszfufa Ali DO Work Phone: Start: 08-17-4536Jwabj dip stick/tablet rgnt auto w/o microscopyMuhammad Ali DO Work Phone: Start: 34-85-3638XW EXTRA URINEEndrit Verena Ontiveros MD Work Phone: Start: 76-46-5985XQUC I, HIGH SENSITIVITY 1 HOUREnddipak Ontiveros MD Work Phone: Start: 40-79-0873OasucddisoUtzk A Fayad MD Work Phone: Start: 70-24-2411Ddu routine ecg w/least 12 lds trcg only w/o i&rEndrit Verena Ontiveros MD Work Phone: Start: 09-19-2024 End: 03-79-0187Tbrnndeooulqv metabolic panelEndriraf Ontiveros MD Work Phone: Start: 09-19-2024 End: 28-64-8938Bfwvlxf bacterial blood aerobic w/id isolatesEndriraf Ontiveros MD Work Phone: Start: 73-58-5378UPH CBC WITH AUTO DIFFRugen Grzegorz Colin MD Work Phone: Start: 37-59-9586QIYPC CULTURE 2Generic External Data ProviderStart: 43-45-5992ZYVTP CULTURE 1Generic External Data ProviderStart: 24-59-1960FXQQH CULTURE - FRGeneric External Data ProviderStart: 08-22-2024 Urine cultureDjuliette Gruber MD Work Phone: Start: 79-18-5260XF TOMOSYNTHESIS SCREENING BILisa Basil CARDIOLOGY FELLOW Work Phone: Start: 78-82-8674MqqldsteeudBqjv Basil CARDIOLOGY FELLOW Work Phone: Start: 72-08-4946Epaasprxtxyjeq aspir&/inj major jt/bursa w/usTodd Merry IBANEZ Work Phone: Start: 58-19-3696Jsvki shoulder complete minimum 2 viewsMichael T Brooks DO Work Phone: Start: 01-36-5785Xypmyznjaku of shoulderMichael Brooks Start: 23-28-7401RGQ UA (CLEAN/CATCH) MICROSCOPIC IF INDICATELisa Baisl CARDIOLOGY FELLOW Work Phone: Start: 22-84-6671Jffalnkckbo observation [Identifier] in Cervix by Cyto Serg Lunsford MD Work Phone: Start: 42-76-2894XEHKE & CERVICAL SPINE MRI DISCRETE DATACcf ProviderStart: 93-03-6502Ffd brain brain stem w/o w/contrast material Jessica Flipboard PA-C Work Phone: Start: 03-86-9059Nyzrm count complete auto&auto difrntl wbcHilary Flipboard PA-C Work Phone: Start: 51-48-4545Qoxfm panelHilary Flipboard PA-C Work Phone: Start: 39-97-7814Bqiyg 1996 panel - Serum or Plasma Jessica Clarke PA-C Work Phone: Start: 44-28-4764Idnfc depression screening assessment Jessica Style [employer] Work Phone: Start: 20-92-4532Cmhnckfwmq endoscopic examination on colonServices [facility] Work Phone: Start: 57-78-2146EJPP Antigen (LFIA)Services [facility] Work Phone: Start: 24-96-9262Gaf. administration COVID19 [employer] & vArmourclaire Neel Work Phone: Start: 21-40-9774AIUG-CoV-2 vaccine, 0.5ml [employer] Work Phone: Start: 26-37-1060RjesixbvezwZkrnkm Fawwad MD Work Phone: Ectopic (disorder)Eliazar Brooks Entire carpal canal (body structure)Eliazar Brooks Ligation of fallopian tubeJENNIFER SHOAIB Plan of Treatment DateCare ActivityDetailAuthorStart: 07-73-5324Uteqagvnz for malignant neoplasm of colonNOMS HealthcareStart: 71-41-3482LVfA,Tdap and Td Vaccines (2 - Td or Tdap)DTaP,Tdap and Td Vaccines (2 - Td or Tdap)[facility], 1928[facility]1983tart: 28-00-6688Jesdt microalbumin profileMedina Hospitaltart: 48-53-2289Rdgai 1996 panel - Serum or PlasmaLipid ScreeningMedina Hospitaltart: 64-23-5191Dvebn panelLipid ScreeningMedina Hospitaltart: 41-51-9793ZLBNZ SCREENLIPID SCREEN [facility] Hospitaltart: 27-11-3424Xgvqaesd ScreeningDiabetes ScreeningMedina Hospitaltart: 17-53-9237Jfdtx BMI ScreeningAdult BMI ScreeningFormerly [facility], [facility]1983tart: 44-39-4917Zymts BMI ScreeningAdult BMI ScreeningMercy Health [facility]field Hospital SystemStart: 49-37-3617Agarl BMI ScreeningAdult BMI ScreeningMercy Health [facility]field Hospital SystemStart: 86-50-3832Wmwvdmb ScreeningTobacco ScreeningMercy Health [facility]field Hospital System Start: 31-23-2907Fencxet ScreeningTobacco ScreeningMercy Health Fairfield Hospital SystemStart: 68-68-4696Kumwt BMI ScreeningAdult BMI ScreeningMercy Health Fairfield Hospital SystemStart: 97-70-3487Gumho BMI ScreeningAdult BMI ScreeningMercy Health [facility]field Hospital SystemStart: 87-73-3647Bmpbjzk ScreeningTobacco ScreeningMercy Health [facility]field Hospital SystemStart: 59-30-7696Churl BMI ScreeningAdult BMI ScreeningProWyandot Memorial Hospitalca [facility] SystemStart: 85-42-9294Llpklkl ScreeningTobacco ScreeningMercy Health Fairfield Hospital SystemStart: 39-94-7825Ezmgy BMI ScreeningAdult BMI ScreeningMercy Health Fairfield Hospital SystemStart: 62-05-9716Gbuabya ScreeningTobacco ScreeningMercy Health Fairfield Hospital SystemStart: 67-69-3224BARFH SCREENLIPID SCREENMedina Hospitaltart: 88-11-5591Zqwpb BMI ScreeningAdult BMI ScreeningMercy Health Fairfield Hospital SystemStart: 53-06-2153Pvaxbvd ScreeningTobacco ScreeningProCrystal Clinic [facility] SystemStart: 84-87-4511Kwrsiky ScreeningTobacco ScreeningMercy Health Fairfield Hospital SystemStart: 11-21-3215Kwsjb BMI ScreeningAdult BMI ScreeningProCrystal Clinic Orthopedic Center SystemStart: 01-41-3902Dxwssqhhx for malignant neoplasm of breastMammogramNOMS HealthcareStart: 06-29-2025 End: 68-44-3094Xmtboif encounter pqeykrsod44/10/2026 9:50 AM EST Office Visit [facility] [address] [place] [address] Jair Espinal MD [address] [place] [address] [facility] Start: 12-30-2025Medicare Annual Wellness (AWV)Medicare Annual Wellness (AWV) [facility] HealthcareStart: 13-07-3808Nuwlkjkws for malignant neoplasm of cervixNOMS HealthcareStart: 03-04-2025 End: 49-47-7865Dyccmwp encounter procedureDorot Verena [facility] Medical OncologyStart: 02-22-2025 End: 71-67-6325Qjhvnrq encounter igflyscca32/06/2025 11:15 AM EDT Appointment [facility] - MRI Imaging [address] [place] [address] Guillermo Mendoza MD [address] [place] [address] [address] [place] [id number] [facility] - MRI ImagingStart: 02-17-2025 End: 02-21-0720OE Brain WO and W contrast IVMR brain with and without contrast Imaging Routine GBM (glioblastoma multiforme) ([facility]) Thrombocytopenia Expected: 02/17/2025, Expires: 12/25/2025[facility] Work Phone: Comment on above:Expected: 02/17/2025, Expires: 12/25/2025Start: 01-21-2025 End: 09-84-3592Acrobyk encounter qqacbprxa86/04/2025 10:30 AM EDT Appointment [facility] [address] [place] [phone] XwiOzibsb [facility] - Radiation OncologyStart: 01-20-2025 End: 25-56-2974Bbkxukv encounter lsmbigaih59/03/2025 10:30 AM EDT Appointment [facility] [address] [place] [phone] DavQugiln [facility] - Radiation OncologyStart: 01-20-2025 End: 86-92-9464Cqkntxr encounter phytzkbpw15/03/2025 9:15 AM EDT [facility] [address] [place] [phone] MueAqwyqb [facility] - Radiation OncologyStart: 01-19-2025 End: 05-65-2107Pudlopt encounter nalyzzvdk70/02/2025 10:30 AM EDT [facility]ment [facility] [address] [place] [phone] GrvLhrghu [facility] - Radiation OncologyStart: 01-19-2025 End: 09-45-8729Etcvwxs encounter procedureProBlanchard [facility] On[facility] - Radiation OncologyStart: 18-09-1789NPUON-19 Vaccine ( season)COVID-19 Vaccine ()[facility] SystemStart: 35-88-0154Snxikyghr vaccinationMercy Health Fairfield Hospital SystemStart: 01-18-2025 End: 47-61-5471Cekofpr encounter /01/2025 9:15 AM EDT [facility]ment [facility] [address] [place] [phone] NzxFatgaq [facility] - Radiation OncologyStart: 01-15-2025 End: 70-16-8600Gvztctn encounter rskjbqeab06/29/2025 10:30 AM EDT [facility]ment [facility] [address] [place] [address] UzyHefjcy [facility] - Radiation OncologyStart: 01-15-2025 End: 37-45-6478Bsgmpkp encounter feibihrzm47/29/2025 9:15 AM EDT Appointment [facility] [address] [place] [phone] SsfWjkkma [facility] - Radiation OncologyStart: 01-14-2025 End: 60-53-2243Kszcriv encounter mrlwiqzgs27/28/2025 10:30 AM EDT Appointment [facility] [address] [place] [phone] KlgDudlsx [facility] - Radiation OncologyStart: 01-14-2025 End: 31-16-6690Yzysrfb encounter /28/2025 9:15 AM EDT Appointment [facility] [address] [place] [phone] LasDxzsgu [facility] - Radiation OncologyStart: 01-13-2025 End: 92-61-3637Zpivdaq encounter jpixhvcnz93/27/2025 10:30 AM EDT Appointment [facility] [address] [place] [phone] YpgPpvyyx [facility] - Radiation OncologyStart: 01-13-2025 End: 31-29-1590Coafjnk encounter arraujbwu47/27/2025 9:15 AM EDT Appointment [facility] [address] [place] [address] JsnNpfnda [facility] - Radiation OncologyStart: 01-12-2025 End: 57-68-1587Jokhlha encounter vqnhlbpka06/26/2025 10:30 AM EDT Appointment [facility] [address] [place] [address] QqsVricdc [facility] - Radiation OncologyStart: 01-12-2025 End: 17-91-3397Yedclcz encounter iehvruvtk74/26/2025 9:15 AM EDT Appointment [facility] [address] [place] [address] PigOlvqhm [facility] - Radiation OncologyStart: 01-11-2025 End: 83-47-8907Lzhodzt encounter procedureProMediJeff[facility] - Radiation OncologyStart: 01-08-2025 End: 99-71-8128Igfdsxp encounter /22/2025 10:30 AM EDT Appointment [facility] [address] [place] [phone] JflPeauwy [facility] - Radiation OncologyStart: 01-08-2025 End: 14-72-6526Vmmonck encounter ioybwjxat60/22/2025 9:15 AM EDT Appointment [facility] [address] [place] [address] WsnPgtfug [facility] - Radiation OncologyStart: 01-07-2025 End: 50-26-0780Btuxdet encounter /21/2025 9:15 AM EDT Appointment [facility] [address] [place] [address] JmnKknrzj [facility] - Radiation OncologyStart: 01-06-2025 End: 52-30-7325Xwfvrfu encounter suzlqhvax34/20/2025 9:15 AM EDT Appointment [facility] [address] [place] [address] FlaVpfwle [facility] - Radiation OncologyStart: 01-05-2025 End: 92-33-2129Njjswpt encounter poeeabykh62/19/2025 9:15 AM EDT Appointment [facility] [address] [place] [address] PguDhzzmq [facility] - Radiation OncologyStart: 01-04-2025 End: 27-07-2806Kwohclf encounter procedurePro[facility]iJeff[facility] On[facility] - Radiation OncologyStart: 01-01-2025 End: 03-35-5637Sjpycil encounter utvoghfaf63/15/2025 9:15 AM EDT Appointment [facility] [address] [place] [address] JxxHnxlvy [facility] - Radiation OncologyStart: 12-31-2024 End: 46-67-2244Sxbgxch encounter dlinnpqyh18/14/2025 9:15 AM EDT Appointment [facility] [address] [place] [address] YzrUiidmu [facility] - Radiation OncologyStart: 12-30-2024 End: 49-80-2137Jhvkkvx encounter mggecvymp90/13/2025 9:15 AM EDT Appointment [facility] [address] [place] [address] HikNndsbi [facility] - Radiation OncologyStart: 12-29-2024 End: 47-68-1689Xjxbciq encounter iuqfoqixl43/12/2025 9:15 AM EDT Appointment [facility] [address] [place] [address] QdnCiuuzs [facility] - Radiation OncologyStart: 12-28-2024 End: 46-84-5998Ssjasoy encounter procedureProMedica [place] [place] [facility] - Radiation OncologyStart: 12-25-2024 End: 81-19-6230Zhlzssv encounter procedureProMedica [place] [place] [facility] Radiation OncologyStart: 12-24-2024 End: 91-19-4363Segynqe encounter chciiltxf11/07/2025 2:10 PM EDT Office Visit [facility] [address] [place] [address] Jair Espinal MD [address] [place] [phone] [facility] Start: 12-24-2024 End: 35-89-5773Jgnsxut encounter ilktztyby36/07/2025 9:15 AM EDT Appointment [facility] [address] [place] [address] YskCowtrb [facility] - Radiation OncologyStart: 12-23-2024 End: 35-16-6847Jogfpoz encounter asygggulk07/06/2025 9:15 AM EDT Appointment [facility] [address] [place] [address] NkiBkkbdk [facility] - Radiation OncologyStart: 12-22-2024 End: 72-76-5357Crtmmad encounter llbevtsvu78/05/2025 9:15 AM EDT Appointment [facility] [address] [place] [address] KzcKuxfbh [facility] - Radiation OncologyStart: 12-21-2024 End: 46-10-3387Tklnrng encounter procedureProBl[facility] On[facility] - Radiation OncologyStart: 12-18-2024 End: 32-03-0517Swsptoo encounter gwjcudqhv44/01/2025 9:15 AM EDT Appointment [facility] [address] [place] [address] UgyIbcbks [facility] - Radiation OncologyStart: 12-17-2024 End: 91-20-8996Ocqfdfd encounter /31/2025 9:15 AM EDT Appointment [facility] [address] [place] [address] QrwJsejzr [facility] - Radiation OncologyStart: 12-16-2024 End: 50-19-6768Sobdlej encounter izqplhsfq21/30/2025 9:15 AM EDT Appointment [facility] [address] [place] [address] DziQkzmpr [facility] - Radiation OncologyStart: 12-15-2024 End: 52-03-5964Kqjrfdw encounter rhahquwyr84/29/2025 9:15 AM EDT Appointment [facility] [address] [place] [address] YpbBvoebj [facility] - Radiation OncologyStart: 12-14-2024 End: 51-89-7308Qxljobg encounter procedureProWyandot [facility] Hospitalca [facility] Genito-Urinary SurgeonsStart: 12-11-2024 End: 21-27-6668Zskaguj encounter idhejwltq54/25/2025 10:45 AM EDT Appointment [facility] Oncology - Radiation Oncology [address] [place] [address] [phone] [facility] - Radiation OncologyStart: 12-10-2024 End: 06-74-0628Qbbqfnn encounter onndtavin34/24/2025 9:15 AM EDT Office Visit [facility]era [facility] - Medical Oncology [address] [place] [address] Guillermo Mendoza MD [address] [facility] [address] [place] [phone] [facility]era [facility]ves [facility] - Medical OncologyStart: 12-07-2024 End: 03-26-5018Peafljb encounter lecxdsacb63/21/2025 10:15 AM EDT Appointment [facility] Oncology - Radiation Oncology [address] [place] [phone] [phone] [facility] - Radiation OncologyStart: 04-19-9956MyerfGreen Cross Hospitaltart: 11-27-2024 Bacteria identified in Urine by CultureUrine [facility]: 11-24-2024 End: 48-63-7718Kahxyge encounter svyuevgyk59/08/2025 1:00 PM EDT Appointment [facility] Radiation Oncology [address] [place] [phone] Health [facility] - Radiation OncologyStart: 11-13-2024 End: 56-02-0867Hzafekw encounter procedureProBlanchard [facility] Oncology - Radiation OncologyStart: 11-13-2024 End: 13-65-9253Hwvxcvc encounter ngcjsobzo55/27/2025 10:15 AM EDT Appointment [facility] - MRI Imaging [address] [facility] [place] [address] Richie Sandoval MD [address] [place] [address] [facility]af[facility], [place] [address] [facility] - MRI ImagingStart: 11-12-2024 End: 34-71-2716KH Brain WO and W contrast IVMR brain with and without contrast Imaging STAT Glioblastoma ([facility]-HCC) Expected: 11/12/2024, Expires: 11/12/2025 [facility] Work Phone: Comment on above:Expected: 11/12/2024, Expires: 11/12/2025Start: 11-12-2024 End: 19-33-5933Nsvpoeb encounter kelsfaomr56/26/2025 11:00 AM EDT Office Visit Meera Albarado [facility] - Medical Oncology [address] [place] [address] Guillermo Mendoza MD [address] [place] [address] [address] [place] [address] Meera Albarado [facility] - Medical OncologyStart: 11-10-2024 End: 47-10-0858jvkfxmythyRaoTejuom Physicians NeuroSurgeryStart: 11-10-2024 End: 94-39-9554Rvkbfqi encounter civloapcn88/24/2025 1:10 PM EDT Office Visit [facility] [address] [place] [address] Jair Espinal MD [address] [facility] [address] [place] [phone] [facility] Start: 21-67-5405Ezpzdpiw identified in Urine by CultureUrine [facility]: 46-71-2009Rykek [facility] System[facility]: 10-02-2024 End: 31-82-7317Caeb TrialProMedica Work Phone: Start: 09-30-2024 End: 46-69-9919Jbdfpcj encounter ubbxckblk03/14/2025 8:40 AM EDT Office Visit [facility] [address] [place] [address] Fred Gracia, KIRK [address] [place] [address] [facility] FMStart: 25-31-8803NAUOZQTL SCREENDIABETES SCREEN [facility]: 22-51-0882Ojovcflf ScreeningDiabetes ScreeningMedina Hospitaltart: 09-07-2024 End: 95-01-7852Etwtwre encounter tuvbamrfh08/21/2025 8:00 AM EDT Office Visit [facility] [address] [facility] [address] [place] [address] Nasra Horta, CARDIOLOGY FELLOW [address], [facility] [address] [place] [phone] [facility] NEURStart: 08-31-2024 End: 97-16-3242Mlgkqwt encounter ipdlcfgsm77/14/2025 10:30 AM EDT Office Visit [facility] [address] [place] [address] Fred Gracia, KIRK [address] [place] [address] [facility] CWM FMStart: 52-93-9685CppcfGreen Cross Hospitaltart: 86-34-1282Wbgfnkor identified in Urine by CultureUrine [facility]: 08-18-2024 End: 99-52-7517Kavrzyw encounter procedureNOMS CWM FMComment on above:Morbid (severe) obesity due to excess calories (CMS/HCC) (Primary Dx); Generalized anxiety disorder with panic attacks (CMS/HCC); Major depressive disorder, recurrent, moderate (CMS/HCC)Start: 07-13-2024 End: 10-99-9879Jfyjtcv encounter tezjaotlw58/24/2025 9:40 AM EST Office Visit [facility] [address] [facility] [address] [place] [address] Nasra Horta, CARDIOLOGY FELLOW [address], [facility] [address] [place] [address] [facility] NEURStart: 07-07-2024 End: 72-47-9684Lfmmpds encounter qapbovrkz53/18/2025 10:00 AM EST [facility] [address] [place] [address] Fred Gracia, KIRK [address] [place] [address] Generalized anxiety disorder with panic attacks (CMS/HCC) (Primary Dx); Multiple sclerosis (CMS/HCC); Major depressive disorder, recurrent, moderate (CMS/HCC); Morbid (severe) obesity due to excesscalories (CMS/HCC); Body mass index (BMI) 45.0-49.9, adult (CMS/HCC)[facility] JEFFREY FMComment on above:Generalized anxiety disorder with panic attacks (CMS/HCC) (Primary Dx); Multiple sclerosis (CMS/HCC); Major depressive disorder, recurrent, moderate (CMS/HCC); Morbid (severe) obesity due to excess calories (CMS/HCC); Body mass index (BMI) 45.0-49.9, adult (CMS/HCC)Start: 07-01-2024 End: 54-65-6485Kqtrvlt encounter /12/2025 10:00 AM EST Office Visit [facility] [address] [place] [address] Fred Gracia, KIRK [address] [place] [address] [facility] FMStart: 06-25-2024 End: 14-04-6059Vtuuowq encounter inruawplf69/06/2025 8:40 AM EST Office Visit [facility] [address] [place] [address] Fred Gracia, CARDIOLOGY FELLOW [address] [place] [address] [facility] CWM FMStart: 06-17-2024 End: 82-37-1652Anmohcj encounter lapmsvenk97/29/2025 9:30 AM EST Office Visit [facility] [address] [place] [address] Sherrie Boone, CARDIOLOGY FELLOW [address] [place] [address] ArrivedNOMS CWM FMComment on above:ArrivedStart: 06-08-2024 End: 72-00-4978Oaktfno encounter pvkynjuqc21/20/2025 9:45 AM EST Office Visit [facility] [address] [place] [address] [facility] [place] [address] Yahaira Vazquez PA [address] [place] [address] N[facility] NB ORTHOStart: 05-18-2024 End: 59-26-1705TK Breast - bilateral ScreeningBilateral screening mammogram Imaging Routine Encounter for screening mammogram for malignant neoplasm of breast Expected: 05/18/2024 (Approximate), Expires: 07/17/2025[facility] Work Phone: Comment on above:Expected: 05/18/2024 (Approximate), Expires: 07/17/2025Start: 05-18-2024 End: 91-90-6564Gqanpby encounter procedureNOMS CWM FMComment on above:LORENZO (obstructive sleep apnea) (Primary Dx); Multiple sclerosis (CMS/HCC); Primary insomnia; Class 3 severe obesity without serious comorbidity with body mass index (BMI) of 45.0 to 49.9 in adult, unspecified obesity type (CMS/HCC); Anxiety and depression (CMS/HCC); Encounter for screening mammogram for malignant neoplasm of breast; Encounter for subsequent annual wellness visit (AWV) in Medicare patientStart: 05-11-2024 End: 30-05-1855Tojvlzp encounter kqocqcfkz84/23/2024 9:00 AM EST Office Visit [facility] [address] [facility] [address] [place] [address] Nasra Horta, CARDIOLOGY FELLOW [address], [facility] [address] [place] [phone] [facility] SWS NEURStart: 05-05-2024 End: 27-73-0939Dzbocdq encounter yqavuagbc58/17/2024 9:40 AM EST Office Visit [facility] [address] [place] [address] Fred Gracia NP [address] [place] [address] [facility] CWM FMStart: 12-12-2024Medicare Annual Wellness (AWV) Medicare Annual Wellness (AWV)[facility] HealthcareStart: 04-29-2024 End: 95-20-1831Xrwkafc encounter mwevzoubk26/11/2024 9:40 AM EST Office Visit [facility] [address] [facility] [address] [place] [address] Nasra Horta, CARDIOLOGY FELLOW [address], [facility] [address] [place] [address] [facility] SWS NEURStart: 04-27-2024 End: 33-86-4952Vnivwpz encounter procedureNOMS NB ORTHOStart: 04-10-2024 End: 52-30-9364lhanlwpjav09/22/2024 8:30 AM EST Treatment [facility] [address] [place] [place] [address] Inderjit Pelletier PTANO CI PTStart: 04-07-2024 End: 34-33-3019czdvhyinzg54/19/2024 9:00 AM EST Treatment [facility] [address] [facility] [address] [place] [address] Aria Kumar PTNO CI PTStart: 04-02-2024 End: 86-52-7656sczehvuaeg50/14/2024 8:30 AM EST Treatment [facility] [address] [facility] [address] [place] [address] Aria Kumar PTNO CI PTStart: 03-17-2024 End: 57-76-7153vuikvpzuqh92/29/2024 9:00 AM EDT Treatment [facility] [address] [facility] [address] [place] [address] Aria Kumar PTNO CI PTStart: 03-13-2024 End: 84-79-7493bviwygbuzhTXFS CI PTComment on above:ArrivedStart: 03-10-2024 End: 86-62-8406rdaxggpxvh13/22/2024 9:30 AM EDT Treatment [facility] [address] [facility] [address] [place] [address] Keli Major, GRADING CLERK [facility] CI PTStart: 03-06-2024 End: 86-72-8915eodhprubsi49/18/2024 8:30 AM EDT Treatment [facility] [address] [facility] [address] [place] [address] Inderjit Pelletier PTANO CI PTStart: 03-05-2024 End: 94-58-6434Skvtqaa encounter procedureNOMS CWM FMComment on above:Arrived Start: 03-03-2024 End: 17-45-4645dtjdfxrxweTYXM CI PTComment on above:ArrivedStart: 02-28-2024 End: 32-00-6069rqsiicrbnxQARG CI PTComment on above:S/P arthroscopy of left shoulderStart: 02-25-2024 End: 72-25-7472Zbdsuxt encounter aamiyegfh77/08/2024 2:30 PM EDT Office Visit [facility] [address] [place] [address] Eliazar Brooks, DO [address] [place] [address] [facility] NB ORTHOStart: 02-25-2024 End: 32-71-8562Hxhbieb encounter lpfyktewy35/08/2024 8:15 AM EDT Office Visit [facility] [address] [place] [address] Eliazar Brooks, DO [address] [place] [place] [address] NOMS ORTHOStart: 02-10-2024 End: 67-37-3055Yonuuil encounter procedureNOMS EXT DEPStart: 02-03-2024 End: 49-60-2795Ygsrvsx encounter procedureNOMS CWM FMComment on above:Arrived Start: 01-31-2024 End: 48-81-6060Nyfosyfeds complete panel - UrineUrinalysis with reflex microscopic Lab Routine Pre-op testing Expected: 01/31/2024, Expires: 01/29/2025 [facility] Work Phone: Comment on above:Expected: 01/31/2024, Expires: 01/29/2025Start: 01-30-2024 End: 27-17-3243Gnouayd encounter procedureNOMS ORTHOComment on above:Rotator cuff impingement syndrome of left shoulder (Primary Dx)Start: 01-23-2024 End: 18-41-8101Gkcyfim encounter ptkgqjokg44/05/2024 12:00 PM EDT Procedure Visit [facility] [address] [place] [address] [place] [address] [facility] NEURStart: 64-66-1709Wfdzz-19 Vaccine ( season)Covid-19 Vaccine ( season)[facility]: 21-64-8835Hnlmjrskl vaccinationInfluenza Vaccine (#1)[facility]: 12-10-2023 End: 84-94-0267Dqubdjf encounter srnjwmwke61/23/2024 10:30 AM EDT Office Visit [facility] [address] [address] Jessica Clarke PA-C [address] [place] [address] follow upCommunity [facility] HealthComment on above:follow upStart: 11-27-2023 End: 805179-guwsxnbcymvrne D3 [Mass/volume] in Serum or PlasmaVITAMIN D 25 HYDROXY Lab Routine Vitamin D deficiency Expected: 11/27/2023, Expires: 02/26/2024leveland ClinicComment on above:Expected: 11/27/2023, Expires: 02/26/2024Start: 11-27-2023 End: 92-10-5776QDC W Auto Differential panel - BloodCOMPLETE BLOOD COUNT AND DIFFERENTIAL Lab Routine Multiple sclerosis ([facility]) Expected: 11/27/2023, Expires: 02/26/2024[facility] Work Phone: comment on above:Expected: 11/27/2023, Expires: 02/26/2024Start: 11-27-2023 End: 39-33-6194Vmgoeetfzrogu metabolic 2000 panel - Serum or PlasmaCOMPREHENSIVE METABOLIC PANEL Lab Routine Multiple sclerosis (HCC) Expected: 11/27/2023, Expires: 02/26/2024[facility] ClinicComment on above:Expected: 11/27/2023, Expires: 02/26/2024Start: 11-27-2023 End: 49-36-4208JfQ [Mass/volume] in Serum or PlasmaIMMUNOGLOBULIN G Lab Routine Multiple sclerosis (HCC) Expected: 11/27/2023, Expires: 02/26/2024[facility] ClinicComment on above:Expected: 11/27/2023, Expires: 02/26/2024Start: 11-27-2023 End: 51-77-0001LeX [Mass/volume] in Serum or PlasmaIMMUNOGLOBULIN M Lab Routine Multiple sclerosis (HCC) Expected: 11/27/2023, Expires: 02/26/2024leveland ClinicComment on above:Expected: 11/27/2023, Expires: 02/26/2024Start: 11-27-2023 End: 19-24-0173Erffjpi encounter budcblsxq10/10/2024 12:00 PM EDT Appointment Radiology [address] [place] [address] Tmqctdyh Spine MRIRadiologyComment on above:Cervical Spine MRIStart: 10-64-9107XKTQCKRD SCREEN DIABETES SCREENMedina Hospitaltart: 09-05-2023 End: 84-58-5507Twebwgw encounter vghbjiflp48/18/2024 8:40 AM EDT Office Visit [facility] [address] [place] [address] Fred Gracia, KIRK [address] [place] [address] [facility]I FMStart: 07-25-2023 End: 71-47-7823Emfclspdr function testingPulmonary function testing Imaging Routine COPD with exacerbation ([facility]/HCC) Expected: 07/25/2023, Expires: 06/26/2024[facility] Work Phone: Comment on above:Expected: 07/25/2023, Expires: 06/26/2024Start: 06-26-2023 End: 43-06-4637KA Chest 2 ViewsXR chest 2 views Imaging Routine COPD with exacerbation ([facility]/HCC) Expected: 06/26/2023, Expires: 06/26/2024[facility] Comment on above:Expected: 06/26/2023, Expires: 06/26/2024Start: 06-26-2023 End: 53-77-3356Hcbckde encounter cqrkihtjv10/07/2024 11:30 AM EST Office Visit [facility] [address] [place] [address] Shaikh Lunsford MD [address] [facility] [place] [address] Landen [facility] IMComment on above:ArrivedStart: 05-20-2023 Behavioral Health ScreeningBehavioral Health ScreeningMedina Hospitaltart: 71-87-2779Yhyfkzquui AssessmentDepression AssessmentMedina Hospitaltart: 39-85-1167Wkqdp-19 Vaccine ()Covid-19 Vaccine ()[facility]: 05-17-3125Aftyxqtae vaccinationC[facility] Clinic [facility] Start: 16-08-3717Yomgi depression screening assessmentDEPRESSION SCREENING [facility]: 08-30-2022 End: 96-91-0656QAG W Auto Differential panel - BloodCBC + DIFF Lab Routine Multiple sclerosis, relapsing-remitting (HCC) Expected: 08/30/2022, Expires: 10/30/2022[facility] Work Phone: comment on above:Expected: 08/30/2022, Expires: 10/30/2022Start: 08-30-2022 End: 24-63-9843Xknbmbjjebqln metabolic 2000 panel - Serum or PlasmaCOMP METABOLIC PANEL Lab Routine Multiple sclerosis, relapsing-remitting (HCC) Expected: 08/30/2022, Expires: 10/30/2022[facility] Work Phone: comment on above:Expected: 08/30/2022, Expires: 10/30/2022Start: 08-30-2022 End: 48-81-1194TuM [Mass/volume] in Serum or PlasmaIGG Lab Routine Multiple sclerosis, relapsing-remitting (HCC) Expected: 08/30/2022, Expires: 10/30/2022 [facility] Work Phone: comment on above:Expected: 08/30/2022, Expires: 10/30/2022Start: 08-30-2022 End: 34-70-5013IhS [Mass/volume] in Serum or PlasmaIGM Lab Routine Multiple sclerosis, relapsing-remitting (HCC) Expected: 08/30/2022, Expires: 10/30/2022 [facility] Work Phone: comment on above:Expected: 08/30/2022, Expires: 10/30/2022Start: 61-06-9255EETFYETRDW ASSESSMENTDEPRESSION ASSESSMENTMedina Hospitaltart: 03-22-2022 End: 44-41-7731LLQ W Auto Differential panel - BloodCBC + DIFF Lab Routine Multiple sclerosis, relapsing-remitting (HCC) Expected: 03/22/2022, Expires: 05/22/2022[facility] Work Phone: comment on above:Expected: 03/22/2022, Expires: 05/22/2022Start: 03-22-2022 End: 50-56-4264VG00 ABSOLUTE BQGYESR48 ABSOLUTE COUNT Lab Routine Multiple sclerosis ([facility]) Expected: 03/22/2022, Expires: 05/22/2022[facility] Work Phone: Comment on above:Expected: 03/22/2022, Expires: 05/22/2022Start: 03-22-2022 End: 49-52-7835Ckpvocktmaqik metabolic 2000 panel - Serum or PlasmaCOMP METABOLIC PANEL Lab Routine Multiple sclerosis, relapsing-remitting (HCC) Expected: 03/22/2022, Expires: 05/22/2022[facility] Work Phone: comment on above:Expected: 03/22/2022, Expires: 05/22/2022Start: 03-22-2022 End: 50-08-9170JsI [Mass/volume] in Serum or PlasmaIGG Lab Routine Multiple sclerosis, relapsing-remitting (HCC) Expected: 03/22/2022, Expires: 05/22/2022 [facility] Work Phone: compgka on above:Expected: 03/22/2022, Expires: 05/22/2022Start: 03-22-2022 End: 85-57-8914DfC [Mass/volume] in Serum or PlasmaIGM Lab Routine Multiple sclerosis, relapsing-remitting (HCC) Expected: 03/22/2022, Expires: 05/22/2022 [facility] Work Phone: comment on above:Expected: 03/22/2022, Expires: 05/22/2022Start: 83-90-9322Gsksaejvf vaccinationMedina Hospitaltart: 11-14-2021 End: 88-23-8679LHR ANTIBODY & IN[facility] WITH [facility]LEXMem[facility] System Work Phone: Comment on above:Expected: 11/14/2021, Expires: 01/14/2022tart: 09-18-2021 End: 03-83-7175GW48 ABSOLUTE COUNTMem[facility] System Work Phone: Comment on above:Expected: 09/18/2021, Expires: 11/18/2021tart: 45-14-9574CFYSL-19 VACCINE (3 - Booster for Yeni series) COVID-19 VACCINE (3 - Booster for Yeni series)[facility] End: 94-38-5063YTI W Auto Differential panel - BloodCBC + DIFF Lab Routine Multiple sclerosis, relapsing-remitting (HCC) Expected: 09/15/2021, Expires: 11/15/2021[facility] Work Phone: comment on above:Expected: 09/15/2021, Expires: 11/15/2021tart: 09-15-2021 End: 50-57-7600Nuglhygjzmgmr metabolic 2000 panel - Serum or PlasmaCOMP METABOLIC PANEL Lab Routine Multiple sclerosis, relapsing-remitting (HCC) Expected: 09/15/2021, Expires: 11/15/2021[facility] Work Phone: comment on above:Expected: 09/15/2021, Expires: 11/15/2021tart: 09-15-2021 End: 99-43-1346XVSOTMCYEJLZVGK GAMIMMUNOGLOBULINS KESHAWN Lab Routine Multiple sclerosis, relapsing-remitting (HCC) Expected: 09/15/2021,Expires: 11/15/2021 [facility] Work Phone: comment on above:Expected: 09/15/2021, Expires: 11/15/2021tart: 09-15-2021 End: 61-94-4466SFBML PANEL BASICLIPID PANEL BASIC Lab Routine Multiple sclerosis, relapsing-remitting (HCC) Expected: 09/15/2021, Expires: 11/15/2021 [facility] Work Phone: comment on above:Expected: 09/15/2021, Expires: 11/15/2021tart: 24-94-1776LUWWJ-19 VACCINE (3 - Booster for Yeni series) COVID-19 VACCINE (3 - Booster for Yeni series)[facility]: 89-65-8030BMMFXDAYVF ASSESSMENTDEPRESSION ASSESSMENTClePremier Healthtart: 89-09-2558Mpphqqeayblleu of varicella zoster vaccineZoster (Shingles) Vaccine (1 of 2)[employer] Or[employer] SystemStart: 61-30-9235Upguzjyyx vaccinationLUNG CANCER SCREENINGMedina Hospitaltart: 86-29-5872Jeaxadedhfis Vaccine: 50+ (2 of 2 - PCV)Pneumococcal Vaccine: 50+ (2 of 2 - PCV)[facility]: 2018 Screening for malignant neoplasm of lungLung Cancer ScreeningCleveland Clinic [facility] Start: 33-29-4306FYVOBLLU VACCINE (1 of 2)SHINGRIX VACCINE (1 of 2)[facility]: 50-74-0756Ozqjgovbh for malignant neoplasm of breastMammogramNOMS HealthcareStart: 46-20-7082NOIDRHUFW (FIT-DNA)COLOGUARD (FIT-DNA)[facility]art: 42-97-2254DddfodynqngZSAWQYUPYTVBukyhbvjq ClinicStart: 2013 COLORECTAL CANCER SCREENINGCOLORECTAL CANCER SCREENINGMedina Hospitaltart: 64-21-3580UR COLONOGRAPHYCT COLONOGRAPHYMedina Hospitaltart: 50-39-2386HJRTY OCCULT BLOODFECAL OCCULT BLOODMedina Hospitaltart: 28-57-1507Tchltmaji for malignant neoplasm of colonMedina Hospitaltart: 50-75-7173PNIKTXFCQTQBA SIGMOIDOSCOPYMedina Hospitaltart: 81-99-6248YpvzqxtafwrWpycigcjw ClinicStart: 76-25-4104Eujfxjutz for malignant neoplasm of breastMammogram ScreeningMedina Hospitaltart: 32-26-3557SDJ TESTINGHPV TESTINGMedina Hospitaltart: 1998 Screening for malignant neoplasm of cervixMedina Hospitaltart: 28-21-1420JMY TESTINGPAP TESTINGMedina Hospitaltart: 34-60-6354Qtgndduxu for malignant neoplasm of cervixMedina Hospitaltart: 54-26-1836Ikrmjchbeqvmoh of varicella zoster vaccineZoster (Shingles) Vaccine (1 of 2)[facility]tart: 12-38-3829Lzsjplwil B Vaccine (1 of 3 - 19+ 3-dose series)Hepatitis B Vaccine (1 of 3 - 19+ 3-dose series)[facility]: 99-41-3579Whcuk BMI Follow Up PlanAdult BMI Follow Up PlanFormerly [facility], [facility]1983tart: 26-43-2687Yvglfyz ScreeningAnxiety ScreeningMedina Hospitaltart: 75-78-5537Aaxmanksko Screening Depression ScreeningMedina Hospitaltart: 31-07-4403QKM SCREENINGHIV SCREENING [facility]: 01-62-5797ICY screeningHIV ScreeningCleveland Clinic [facility] Start: 82-88-8506Xkesygoapr ScreeningDepression ScreeningRegency Hospital [facility]edo Start: 55-84-1067ZSQACSSLN B (1 of 3 - 3-dose series)HEPATITIS B (1 of 3 - 3- dose series)[facility]: 16-36-3524Ivyfhuqmq B Vaccine (1 of 3 - 3- dose series)Hepatitis B Vaccine (1 of 3 - 3-dose series)[facility]: 17-49-9708Ourrmigdw for malignant neoplasm of colonNOCA HealthcareStart: 89-67-5363Qjuwkhm CounselingTobacco CounselingRegency Hospital ToledoBasi metabolic 2000 panel - Serum or PlasmaRegency Hospital ToledoBLOOD CULTURE 1 BLOOD CULTURE 1 Lab Routine 08/23/2024 5:46 AM [facility]Phys[facility] CenterBL[facility] BLOOD CULTURE 1 Lab Routine 11/27/2024 8:15 PM EDPhys[facility] CenterBLOOD CULTURE 2 BLOOD CULTURE 2 Lab Routine 08/23/2024 5:52 AM EDTNOMS HealthcareCBC W Auto Differential panel - BloodRegency Hospital Toledo End: 93-65-5983KAE W Auto Differential panel - BloodCBC auto differential Lab Routine GBM (glioblastoma multiforme) [place] weekly for 7 Occurrences s tarting 11/19/2024 until 4[facility] Work Phone: Comment on above:weekly for 7 Occurrences starting 11/19/2024 until 11/19/2033 End: 24-56-5076Aqqegqlxekdxm metabolic 2000 panel - Serum or PlasmaComprehensive metabolic panel Lab Routine GBM (glioblastoma multiforme) ([facility] weekly for 7 Occurrences starting 11/19/2024 until 11/19/2025ProSumma Health Akron CampusComment on above:weekly for 7 Occurrences starting 11/19/2024 until 11/19/2025 End: 43-97-2904AUP(NEURO/NI)EMG(NEURO/NI) EMG Routine Left arm weakness 1 Occurrences starting 09/06/2023 until 09/05/2024[facility] Work Phone: Comment on above:1 Occurrences starting 09/06/2023 until 09/05/2024IMMUNOGLOBULINS GAMIMMUNOGLOBULINS KESHAWN Lab Routine Multiple sclerosis, relapsing-remitting (HCC) 09/18/2021 8:36 AM [facility] Work Phone: Ionized calciumProMedica Work Phone: Magnesium [Mass/volume] in Serum or PlasmaRegency Hospital Toledo End: 99-63-2095VIU SCREENINGMAM SCREENING Radiology Routine Encounter for screening mammogram for breast cancer 1 Occurrences starting 10/17/2022 until 4C[facility] Work Phone: Comment on above:1 Occurrences starting 10/17/2022 until 11/16/2023 End: 39-72-5825OH Brain WO and W contrast IVMRI BRAIN WO/W IVCON Radiology Routine Multiple sclerosis (HCC) 1 Occurrences starting 07/16/2023 until 5CPro[facility] Work Phone: comment on above:1 Occurrences starting 07/16/2023 until 08/14/2024 End: 47-52-4616CM Cervical spine WO contrastMRI CERVICAL SPINE WO IVCON Radiology Routine Left arm weakness 1 Occurrences starting 09/06/[address] [place] [address] Work Phone: Comment on above:1 Occurrences starting 09/06/2023 until 10/05/2024 End: 79-28-6439Lim brain brain stem w/o w/contrast materialMRI BRAIN WO/W IVCON Radiology Routine Multiple sclerosis, relapsing-remitting (HCC) 1 Occurrences s tarting 09/15/2021 until 3C[facility] Work Phone: comment on above:1 Occurrences starting 09/15/2021 until 10/15/2022 End: 93-13-6519Yuw brain brain stem w/o w/contrast materialMRI BRAIN WO/W IVCON Radiology Routine Multiple sclerosis, relapsing-remitting (HCC) 1 Occurrences s tarting 11/14/[address] [place] [address] Work Phone: Comment on above:1 Occurrences starting 11/14/2021 until 12/14/2022 End: 25-05-3490Cwe brain brain stem w/o w/contrast materialMRI BRAIN WO/W IVCON Radiology Routine Multiple sclerosis, relapsing-remitting (HCC) 1 Occurrences s tarting 08/30/[address] [place] [address] Work Phone: comment on above:1 Occurrences starting 08/30/2022 until 09/29/2023 End: 20-67-1612Ogx spinal canal cervical w/o & w/contr matrlMRI CERVICAL SPINE WO/W IVCON Radiology Routine Multiple sclerosis, relapsing-remitting (HCC) 1 Occurrences starting 08/30/[address] [place] [address] Work Phone: comvbpt on above:1 Occurrences starting 08/30/2022 until 09/29/2023OT PLAN OF CARE CERTIFICATIONOT PLAN OF CARE CERTIFICATION Procedures Routine Multiple sclerosis, relapsing-remitting (HCC) Ordered: [address] [place] [address] Work Phone: Comment on above:Ordered: 2Oxygen Therapy - Maintain SpO2: 90%; *GENERAL OFFICE DISPATCHER Guidelines for O2: Yes; Document: \[email or web address]\epic\EPIC_Reference\Orders\Respiratory Care Guidelines\CPG Oxygen 2022.pdf[facility] Work Phone: Patient EducationHemorrhoids (DC) Diverticulosis (DC) Colon Polypectomy (DC)[facility] Work Phone: Phosphate [Mass/volume] in Serum or PlasmaSt. Rita's Hospital Health SystemPlatelets [#/volume] in BloodProMedica Work Phone: Renal function 1999 panel - Serum or [facility] HealthcareRenal function 1999 panel - Serum or [facility] End: 46-34-2268Bqzybcsuf mammography bi 2-view breast inc [facility] S[facility] Radiology Routine Encounter for screening mammogram for breast cancer 1 Occurrences starting 11/15/2021 until 12/15/2022[facility] Work Phone: Comment on above:1 Occurrences starting 11/15/2021 until 12/15/2022Surgical PathologyProMedica Work Phone: [place] [facility] [place] [facility] [place] Routine 08/22/2024 10:45 PM EDTNOCA HealthcareURINE CULTURE - [facility] [place] [facility] [place] Routine 10/17/2024 9:45 AM EDTNOChristian HospitalUS Kidney - [facility] End: 34-46-8183XF CERV OTHER 4V AP/LAT/FLX/EXTXR CERV OTHER 4V AP/LAT/FLX/EXT Radiology Routine Left arm weakness 1 Occurrences starting 09/06/2023 until 10/05/2024[facility] Work Phone: Comment on above:1 Occurrences starting 09/06/2023 until 10/05/2024[facility] Immunizations Immunization DateImmunizationNotesCare TacnwsrvQxftjtjl52-80-0188johnpdunb, injectable, madin eric canine kidney, preservative freeJulio Fernandez MD Work Phone: [facility] ToledoXrlfjx25-69-5423Kfocxsyyt, injectable, Madin [place] Canine Kidney, preservative free, quadrivalentFerd Gracia CARDIOLOGY FELLOW Work Phone: [facility] SystemsFujpmjwhxe72-87-6318skurobz vaccine or immune globulinJulio Fernandez MD Work Phone: [facility]edoXmpsmk38-23-3406jmirsjemq virus vaccine, unspecified formulationAdonay PHILLIPS Work Phone: [facility] on above:Result Comment: 2025-02-11: PT TOLERATED PUGK20-67-8745 influenza, intradermal, quadrivalent, preservative free, injectableShaikh Jonn BENITEZ Work Phone: [facility] SystemsZoslxarmuy92-55-6926jecwplybr virus vaccine, unspecified formulationSarthak Escobar MD, PhD Work Phone: [facility]12-12-2023influenza, seasonal, injectableShaikh Jonn BENITEZ Work Phone: [facility] SystemsNkocbxdqbv47-42-9581YTMZ-KrC-6 (COVID-19) mRNAMUL.ORD![id number] Juli [facility] on above:Result Comment: 2025-02-11: YIP6207-71-3116bulgbbd vaccine or immune globulinJulio Fernandez MD Work Phone: [facility] ToledoPbbazc91-37-0712byqixvvjt, high dose seasonal, preservative-freeShaikh Jonn BENITEZ Work Phone: [facility] SystemsBaljfwemca14-10-6037fmycbqptg virus vaccine, unspecified formulationHilary Young PA-C Work Phone: [facility]12-30-2021COVID-19 mRNA-1273 (Moderna)[facility] Work Phone: [facility] PrebleComment on above: Result Comment: 2025-02-11: XFM8256-68-3389yuwxnxo vaccine or immune globulin Julio Fernandez MD Work Phone: [facility]03-11-2021unknown vaccine or immune globulinJulio Fernandez MD Work Phone: [facility]03-11-2021JoJorge COVID 19 VaccineUC HealthComment on above: Note: Patient tolerated well. No signs or symptoms of adverse reactions. Patient waited a minimum of 15 minutes.83-79-2657fkljmbmsh virus vaccine, unspecified formulationLauren Juli [facility]11-20-2020influenza, injectable, quadrivalent, preservative freeHilary Young PA-C Work Phone: cTuscarawas HospitalZxajtn62-32-6707hydbvtmnn virus vaccine, unspecified formulationLauren Juli [facility]11-01-2019influenza, injectable, quadrivalent, preservative freeHilary Young PA-C Work Phone: cTuscarawas HospitalTyllos75-64-0302fzdwgqitg virus vaccine, unspecified formulationLauren Juli [facility]01-17-2019influenza, injectable, quadrivalent, preservative freeHilary Young PA-C Work Phone: cTuscarawas HospitalIvyxac59-15-1957gifufjgtt virus vaccine, unspecified formulationLauren Juli [facility] on above:Result Comment: 2025-02-11: VIS DATE: 12/24/2014 57-32-1890ngtbntjtg, injectable, quadrivalent, preservative freeHilary Young PA-C Work Phone: [facility]and Dduudu14-40-7088jysgekuqlkke polysaccharide vaccine, 23 valentHilary Young PA-C Work Phone: [facility] Rimdvq10-07-8383omwtibl toxoid, reduced diphtheria toxoid, and acellular pertussis vaccine, adsorbedHilary Young PA-C Work Phone: [facility] Ldiuov44-67-0993eiogqoq vaccine or immune globulinJulio Fernandez MD Work Phone: [facility] ToledoSmjzyu96-00-5681ickgveqba virus vaccine, unspecified formulationLauren Juli [facility] on above:Result Comment: 2025-02-11: VIS DATE: 12/24/2014 34-39-0235owliiggha, injectable, quadrivalent, preservative freeHilary Young PA-C Work Phone: cTuscarawas HospitalLwmecx71-29-8732upqihivkc virus vaccine, unspecified formulationLauren Juli [facility]10-31-2015influenza, high dose seasonal, preservative-freeHilary Young PA-C Work Phone: cTuscarawas HospitalTwyxxa73-62-5695oueyummqv, injectable, quadrivalent, preservative freeMichael Brooks DO Work Phone: [facility] SystemsKgkpbbnvxs45-67-6596mcxeevixz virus vaccine, unspecified formulationLauren Juli [facility]12-09-2014influenza, high dose seasonal, preservative-freeHilaagus Clarke PA-C Work Phone: cTuscarawas HospitalLovlqj08-94-3552fgwfjcddk, injectable, quadrivalent, preservative freeMichael Brooks DO Work Phone: [facility] Payers DatePayer CategoryPayerPolicy [id number]-eed [id number] Health [id number] Medicare (Managed Care)[id number]68435.018004. Medicare1.2.840.599055.1.13.159.2.7.3.4185[id number] 07-01-2021MedicaidUHC MEDICAID [facility] MEDICAID [id number] 11/17/2020- Present [phone] [address] [place] [address] [id number] 1.2.840.071501.1.13.159.2.7.3.598514.31507-01-2021Medicaid 1.2.840.740401.1.13.159.2.7.3.541[id number] 2.16.840.1.386282.3.57[id number] 2.16.840.1.813138.3.579.2.87374-06-4537Vypiplu8492438 2.16.840.1.069118.3.579.2.45084-25-2359Ewwqotn5628341 2.16.840.1.041152.3.579.2.75753-20-6478Ttjmcvz1191986 2.16.840.1.866698.3.579.2.22084-87-6345Lxiqbgv51951604 2.16.840.1.414533.3.579.2.56725-09-9376Bryjyga2421690 2.840.1.675759.3.579.2.263625-91-2329Wifswjb6869442 2.0.1.364968.3.579.2.167040-32-6752Ltmzxsk0066268 2.840.1.715650.3.579.2.354447-19-9393Pynduis8223857 2.0.1.664427.3.579.2.890779-72-9262Lsxzaie4224035 2.0.1.147781.3.579.2.035623-39-8604Vttmxjy4505219 2.0.1.021529.3.579.2.229172-56-8917Lzksqeh1617925 2.840.1.347790.3.579.2.063496-63-4985Vprwfhe2067820 2.0.1.236724.3.579.2.918910-08-5035Lvtdfzk7227466 2.840.1.754701.3.579.2.293147-58-6600Nhijats3867823 2.840.1.602090.3.579.2.410994-38-7689Nneceha0037170 2.840.1.003099.3.579.2.291953-71-4389Adxjkol7677754 2.840.1.625193.3.579.2.620791-77-9274Edgjabb1917398 2.16.840.1.550761.3.579.2.422781-95-5512Htrqiyi3642623 2.16.840.1.818234.3.579.2.374760-38-4454Ucoeefz6097603 2.16.840.1.850463.3.579.2.657729-39-0054Ivjluxb4174211 2.16.840.1.891445.3.579.2.411429-25-8478Svzjmdz4670870 2..840.1.087935.3.579.2.826079-73-0962Ktfdzzw5351300 2.16.840.1.151060.3.579.2.010500-33-3149Imjuemi8447675 2.840.1.989124.3.579.2.895092-07-2766Fumarzw9687062 2.840.1.169802.3.579.2.028830-07-0921Essbnuu7908513 2..840.1.492436.3.579.2.544826-17-8836Ezgibgp6787173 2..840.1.349976.3.579.2.366018-69-7346Yadjaug8826575 2..840.1.098427.3.579.2.303828-87-0837Uoedtus8556069 2.840.1.372952.3.579.2.410841-33-3859Uzgdyyw0703832 2..840.1.415118.3.579.2.141430-20-4078Jcekjnt000733909 2..840.1.110948.3.579.2.699083-81-2028Pdkygdt248960575 2.840.1.260425.3.579.2.730357-85-0181Ktrzcze678280256 2.840.1.249652.3.579.2.973659-75-6158Gpuenrv274607882 2.840.1.001726.3.579.2.58963-13-2201Wuyscqj966926380 2.840.1.459836.3.579.2.669494-71-8569Poixcpt268003897 2.0.1.960923.3.579.2.943838-20-0330Uoazlxa187276628 2.0.1.792565.3.579.2.102742-21-8162Wsoqiwe895379975 2.0.1.390897.3.579.2.967091-10-4665Bdsxpxd595616740 2.0.1.464753.3.579.2.292398-89-8112Jefkksd559120307 2.0.1.903748.3.579.2.630116-16-2636Tkttrlr503801959 2..1.233177.3.579.2.990363-25-7244Elwbrgv162115325 2..1.971239.3.579.2.165386-01-6031Mtetsdn395701639 2..1.885948.3.579.2.899663-06-5684Dgfkgoj50069924 2.0.1.772187.3.579.2.72503-81-4979Bcxzsbu12431378 2.840.1.078046.3.579.2.08715-71-0943Vkchljl94277397 2.840.1.016907.3.579.2.09997-09-7047Dhlbefj64987477 2.16.840.1.406503.3.579.2.82491-73-8034Wkggung16857860 2.840.1.399320.3.579.2.07321-12-1708Cbjmuet438920884 2.840.1.952109.3.579.2.794510-26-8189Xfwyuop532782801 2.0.1.813777.3.579.2.351412-06-5805Viqvccf164780982 2.0.1.599299.3.579.2.909809-46-2020Pomvrcb621898423 2.0.1.030243.3.579.2.312879-85-3829Dwwtorw641931168 2.0.1.842991.3.579.2.067439-65-9328Vqgzxjm147722815 2..1.624039.3.579.2.072112-95-2280Zehpqtx056845006 2..1.316002.3.579.2.280735-19-2704Izjtvam044289526 2..1.108886.3.579.2.075689-07-1265Ehravul955067590 2..1.666082.3.579.2.567273-50-5742Jmtkdeh786141191 2.0.1.269579.3.579.2.203755-49-0488Fsqbpxj821197458 2.0.1.050649.3.579.2.308381-52-7440Ilhjwvm845780688 2.840.1.068429.3.579.2.610765-87-2623Ucaqelz213054015 2.0.1.123409.3.579.2.772762-94-4593Lijuifl683025513 2.16840.1.273397.3.579.2.418412-32-7562Scnuslc604057026 2.16.840.1.108717.3.579.2.273351-91-5334Ttnrfsx993343016 2.840.1.271758.3.579.2.816547-05-2610Pknaiwr261227863 2.840.1.076152.3.579.2.891007-36-2689Elkfqjx741619599 2.0.1.513153.3.579.2.586339-08-5824Cuuifzd589148954 2.0.1.622180.3.579.2.155971-61-0091Smmdwbl772947469 2.0.1.521016.3.579.2.938733-18-8722Dlxhypy505442251 2.0.1.114609.3.579.2.331065-24-2769Fzqqodj035302051 2.840.1.076378.3.579.2.056777-47-3634Hipvfzf354313517 2.0.1.994721.3.579.2.087977-99-1057Kzlgopi035239269 2.0.1.190198.3.579.2.433219-95-6332Nrpogth143551670 2.840.1.882141.3.579.2.160927-64-8992Wnitbxo400056039 2.840.1.731484.3.579.2.763570-06-1298Ngwmbci821595861 2.840.1.941602.3.579.2.710770-63-0294Btdwrhg312576090 2.840.1.579367.3.579.2.514625-63-0796Polrhri227570142 2.840.1.636428.3.579.2.370939-88-6332Dsaajtt255497683 2.840.1.072956.3.579.2.033846-52-7931Vdayaqd541120049 2.0.1.708913.3.579.2.860326-02-9212Fygobsc428752035 2..1.121501.3.579.2.279886-62-6748Wgloidr226896642 2..1.739994.3.579.2.249650-09-5417Opdubjn430615231 2..1.077762.3.579.2.137793-91-9476Hxxhavp132203725 2.0.1.915711.3.579.2.491565-37-9398Tkdxamh217243073 2..1.203917.3.579.2.821851-09-7505Mdfysmn201499916 2..1.192429.3.579.2.444900-47-3843Nadotet317844992 2..1.548380.3.579.2.157158-40-6498Ngfkeua211967610 2..1.114244.3.579.2.443974-46-0932Qwcmyxb392464992 2..1.324802.3.579.2.945326-40-3403Myzlmip800060246 2.0.1.487077.3.579.2.759061-80-7736Gdbpqfs258131184 2..1.361801.3.579.2.691685-92-4279Ihwjmmj729088705 2..1.683454.3.579.2.539243-95-6436Oiwwlgf507359205 2.0.1.088178.3.579.2.818502-30-8752Jupqrub893862115 2..1.822643.3.579.2.139388-86-1534Rmoxxte945304630 2..1.321942.3.579.2.963726-15-8116Iydhafe273504338 2..1.693129.3.579.2.323705-52-6693Qlttopx546651606 2..1.638475.3.579.2.223891-14-5727Uejckxc665043113 2..1.978705.3.579.2.275840-79-2787Okfbmsu Health Hlxvieylv493022434 r782k02g-4zf3-3n41-j704-66l6xq36w97631-60-9118Wwmxnto44294703647720-35-9004 [id number]-[id number] 2..1.734762.3.140.1.19811.5.4Unknown [id number] 4w78i9d8-96rl-5mv3-2085-ufu817v84bz2Xjpaagy46742124 2..1.796483.3.579.2.031Ijsjfpp58649037 2.0.1.444729.3.579.2.531 Svcmhxy71775813 2..1.629335.3.579.2.531 Social History DateTypeDetailFacilityTobacco smoking statusUnknown if ever smokedHealth [facility] Work Phone: Start: 04-77-6277Ejr Assigned At BirthFeOhioHealth Nelsonville Health Centertart: 09-05-2021 End: 38-85-0797Gchnied smoking status NHISEx-smoker (finding)[facility] End: 16-27-4544Phdroct of tobacco useCurrent smokerMedina Hospitaltart: 12-13-1996 End: 89-52-2664Vijxpuu of tobacco useCigarette SmokerMedina Hospitaltart: 12-06-2017 End: 41-78-5992Xkshycilcl smoked current (pack per day) - Jiimszsi2Qpzqevyxv ClinicStart: 12-06-2017 End: 09-52-5036Temtrej use and exposureSmokeless tobacco non-userMedina Hospitaltart: 11-01-2020 End: 32-92-8900Xgqucpz intakeCurrent drinker of alcohol (finding)[facility]: 61-57-0260Fhktiro SDOH Alcohol Rsqmtquxt7Kiklpsbrq ClinicStart: 28-92-5146Kzakenu SDOH Alcohol Std Babxfp9Aoealyzfn ClinicStart: 08-08-2012 History SDOH Alcohol CommentrareCshelby memorial hospital ClinicStart: 72-16-2562Yanselh SDOH Social Connections Get Vylotfbb2Fpsxjdufu ClinicStart: 33-42-5140Sgqzsvo SDOH Physical Activity ZIA6YiqwhvyfiMedina Hospitaltart: 47-98-6690Jrqonan SDOH Stress5 [facility]: 00-20-6969Gbnrpmr SDOH Trighkyzc7Wluznvavh ClinicStart: 25-29-0247Kqdhcguwk7Jnezcamcx ClinicStart: 08-08-2012 End: 23-04-8460Qsxrjyw Commentplans to try to quit at some point but not ready. [facility]: 09-08-2021 End: 71-20-9024Pazfuwio to SARS-CoV-2 (event)Not sureMedina Hospitaltart: 08-02-2020 End: 55-16-0904Vtl Assigned At BirthC[facility] Clinic [facility] HospitalDo you belong to any clubs or organizations such as yazidi groups, unions, fraternal or athletic groups, or school groups?NoCleveland ClinicAre you now , , , , never or living with a partner?MarriedClest. anthony's hospital ClinicHow often to you have a drink containing alcohol?Monthly or lessClest. anthony's hospital ClinicHow many standard drinks containing alcohol do you have on a typical day?5 or 6 [facility] ClinicHow often do you have 6 or more drinks on 1 occasion?Less than monthlyClest. anthony's hospital ClinicHow hard is it for you to pay for the very basics like food, housing, medical care, and heatingNot very hardMedina Hospitaltart: 50-09-0706Vvavn Depression Screening Uigajuaabe9Ejplyhpfe ClinicDo you feel stress - tense, restless, nervous, or anxious, or unable to sleep at night because yourmind is troubled all the time - these days [OSQ]Very muchCleveland Clinic [facility](I/We) worried whether (my/our) food would run out before (I/we) got money to buy more.Sometimes trueMedina Hospitaltart: 19-85-4802Ikntyt identity Identifies as female gender (finding)[facility]: 61-76-8587Hewevc orientationHeterosexual (finding)[facility]: 06-05-2023 End: 40-32-4747Jxhkkid intakeEx-drinker (finding)[facility] HealthcareHow many standard drinks containing alcohol do you have on a typical day?3 or 4[facility] HealthcareHow hard is it for you to pay for the very basics like food, housing, medical care, and heatingVery hardNOMS HealthcareDo you feel stress - tense, restless, nervous, or anxious, or unable to sleep at night because yourmind is troubled all the time - these days [OSQ]Only a littleNOMS Healthcare(I/We) worried whether (my/our) food would run out before (I/we) got money to buy more. Often trueNOCA HealthcareIn the past 12 months, was there a time when you were not able to pay the mortgage or rent on time?YesNOMS HealthcareStart: 04-30-2023 Alcohol Commenttea and coffee 1-2 cups per dayNOMS HealthcareHistory of tobacco usePassive smokerNOCA HealthcareToGalion [facility] Comment on above:States smokes 1 PPDTobacco smoking statusDunlap Memorial Hospital Start: 07-05-2015 End: 74-63-7130PfsBktzhk (finding)[facility]: 49-13-6808Xcgqrxd smoking status NHISOccasional tobacco smokerFormerly [facility], [facility]tart: 09-16-2024 End: 69-44-6092Njvmvjjzk beverage intakeLifetime non-drinker (finding)[facility] RehabilitationComecer SystemStart: 22-31-4486Xak assigned at birthNot on fileRegency Hospital [facility] Medical Equipment Procedure CodeEquipment CodeEquipment Original TextEquipment IdentifierDates SHOULDER ARTHROSCOPY W/ POSSIBLE REPAIR Eliazar Brooks DO 02/10/24 Non Biological Shoulder L{[id number] FDAStart: [id number]_dqsOoqft: [id number]_isaDrkla: [id number]_yllTihnj: [id number]_egzBfblr: 09-23-2024 Goals DatePatient GoalDesired Activity/StatePersonal health goalComment on above: Evaluation of progress towards goal: SNF recommended, pt agreeable to SNF stating she is not able to care for self at home at this time Functional Status DateAssessmentResultFacilFisher-Titus Medical Center System Mental Status DateAssessmentResultFacilSSM Health St. [facility] Clinical Notes 08-14-2021 to 03-15-2025 Note Date & [id number] Miscellaneous Notes* Telephone Encounter - Татьяна Ramirez - 03/15/2025 9:46 AM EDT Called to get patient scheduled for a 6 month brain f/up in June with Dr. Espinal. Left a message with Nanci at the care facility patient is staying at for the nurse to call back & schedule appt. documented in this encounterReg[facility] Telephone encounter Note* Telephone Encounter - Татьяна Ramirez - 03/15/2025 9:46 AM EDT Called to get patient scheduled for a 6 month brain f/up in June with Dr. Espinal. Left a message with Nanci at the care facility patient is staying at for the nurse to call back & schedule appt. [facility] History of Present illness Narrative* She Drew RN - 03/04/2025 4:13 PM EDT Images from the original note were not included. Spoke with [facility]. Verbalized understanding to below information. MD She Florentino RN If methenamine is only for prevention I am okay for her to hold it for now. Previous Messages ----- Message ----- From: She Drew RN Sent: 03/04/2025 4:01 PM EDT To: Guillermo Mendoza MD Subject: drug interaction Delores at [facility] called there is a severe drug interaction with bactrim and methenamine that she takes. Delores was not sure why she takes it but according to google it is used to prevent frequent UTIs. The pharmacy will not send the bactrim unless you discontinue the methenamine. Pleaseadvise. [phone] documented in this encounterRegency Hospital [facility]10-16-2025 History of Present illness Narrative* Nancy Hernandez RN - 03/04/2025 3:34 PM EDT Anupama presents unaccompanied for post treatment clinic visit with Dr Xiong and Dr Mendoza; s/p courseof RT to R temp lobe/edema 23Fx and Boost of 7 Fx completed on 01/21/2025 Patient reports feeling good and reports no issues or concerns since treatment completion Review of MR Brain 02/24/25 Dr Mendoza plans Temodar single agent with palliative intent with monthly follow ups and labs Plan to repeat MR/Brain in May 2025. Anupama does not need clinic follow up with [facility] at this time documented in this encounterRegency Hospital [facility]10-16-2025 History of Present illness Narrative* Priyanka Velez RN - 03/04/2025 12:52 PM EDT Patient is here in follow up with Dr. Mendoza for glioblastoma. Plan for the following: The patient's performance status has improved compared to 3 months ago. I recommend Temodar single agent with palliative intent. Plan to start adjuvant temodar (5 days/month). I will calculate her dose once I know her accurate height and weight. The patient's Temodar was calculated as 360 mg daily x 5 in the past. Common side effects of Temodar include nausea, cytopenia, and an increased risk of infection. Once patient starts I will see her on a monthly basis CBC CMP prior to visit. Plan to repeat another brain MRI in May 2025. Chemo consent was signed by patient today after discussing plan of care with Dr. Mendoza. Scripts for Bactrim and ondansetron sent to facility with patient with understanding that new script for Temodar will be sent once Dr. Mendoza updates dose. Patient verbalized understanding to instructions and was discharged in stable condition to facility transport. Nurse will contact SNF nurse to get updated height and weight for patient and update on patient's plan of care. documented in this encounterRegency Hospital [facility]10-16-2025 History of Present illness Narrative* Guillermo Mendoza MD - 03/04/2025 11:15 AM EDT Images from the original note were not included. [facility] 03/04/25 Anupama Vasquez is a 54 y.o. 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 RADIATION TREATMENT FROM 12/06/24 Interval history: Most recently in early November 2024, the patient was hospitalized in [place] ICU for catheter-relatedsepsis. She completed her radiation treatment 01/21/2025. Due to poor performance status she received radiation treatment alone without Temodar. Overall she is doing much better, able to walk with some assistance. Still relies on wheelchair to get around. She has no difficulty with her speech but has difficulty to use her phone. She has a sonand a daughter. She is here in clinic by herself. She is currently in [place] rehab. Past Medical History: Diagnosis Date Anemia Chronic kidney disease Depression Hypertension MS (multiple sclerosis) 2013 Stroke ([facility] Past Surgical History: Procedure Laterality Date CARPAL TUNNEL RELEASE Left SHOULDER ARTHROSCOPY W/ ROTATOR CUFF REPAIR Left SYNAPTIVE CRANIOTOMY EXCISION TUMOR Right 09/23/2024 Performed by Jair Espinal MD at [facility] Family History Problem Relation Age of Onset Stroke Mother Social History Socioeconomic History Marital status: Single Tobacco Use Smoking status: Some Days Current packs/day: 0.50 Types: Cigarettes Smokeless tobacco: Never Vaping Use Vaping status: Never Used Substance and Sexual Activity Alcohol use: Never Drug use: Yes Types: Marijuana Sexual activity: Defer Social Drivers of Health Financial Resource Strain: High Risk (06/04/2023) Received from [facility] Overall Financial Resource Strain (CARDIA) Difficulty of Paying Living Expenses: Very hard Food Insecurity: No Food Insecurity (12/24/2024) Hunger Screening Food Insecurity - Worry: Never True Food Insecurity - Inability: Never True Transportation Needs: No Transportation Needs (08/28/2024) PRAPARE - Transportation Lack of Transportation (Medical): No Lack of Transportation (Non-Medical): No Physical Activity: Sufficiently Active (06/04/2023) Received from [facility] Exercise Vital Sign On average, how many days per week do you engage in moderate to strenuous exercise (like a brisk walk)?: 4 days On average, how many minutes do you engage in exercise at this level?: 40 min Stress: No Stress Concern Present (06/04/2023) Received from [facility] Occupational [facility] - Occupational Stress Questionnaire Feeling of Stress : Only a little Social Connections: Moderately Integrated (06/04/2023) Received from [facility] Social Connection and Isolation Panel In a typical week, how many times do you talk on the phone with family, friends, or neighbors?: Twice a week How often do you get together with friends or relatives?: Once a week How often do you attend yazidi or judaism services?: 1 to 4 times per year Do you belong to any clubs or organizations such as yazidi groups, unions, fraternal or athletic groups, or school groups?: No How often do you attend meetings of the clubs or organizations you belong to?: Never Are you , , , , never , or living with a partner?: Interpersonal Safety: Not At Risk (08/28/2024) Humiliation, Afraid, Rape, and Kick questionnaire Fear of Current or Ex-Partner: No Emotionally Abused: No Physically Abused: No Sexually Abused: No Housing Instability: Low Risk (08/28/2024) Housing Instability Housing Instability: No No Known Allergies Medication List Accurate as of March 04, 2025 12:02 PM. If you have any questions, ask your nurse or doctor. Medications Continued This Visit acetaminophen 325 mg tablet Refills: 0 Dose: 650 mg Commonly known as: TYLENOL albuterol 2.5 mg /3 mL (0.083 %) nebulizer solution Refills: 0 Dose: 2.5 mg Commonly known as: PROVENTIL,VENTOLIN bumetanide 2 mg tablet Refills: 0 Commonly known as: BUMEX busPIRone 7.5 mg tablet Refills: 0 Dose: 7.5 mg Commonly known as: BUSPAR cholecalciferol (vitamin D3) 50 mcg (2,000 unit) tablet,chewable Refills: 0 Dose: 25 mcg COLACE 100 mg capsule Refills: 0 Dose: 100 mg Generic drug: docusate sodium cyclobenzaprine 10 mg tablet Refills: 0 Dose: 10 mg Commonly known as: FLEXERIL dexAMETHasone 4 mg tablet Refills: 0 Commonly known as: DECADRON ferrous sulfate 325 (65 FE) mg EC tablet Refills: 0 Dose: 325 mg GLUCAGON (HCL) EMERGENCY KIT 1 mg recon soln Refills: 0 Dose: 1 mg Generic drug: glucagon HCL HYDROcodone-acetaminophen 5-325 mg per tablet Refills: 0 Dose: 1 tablet Commonly known as: NORCO insulin lispro 100 unit/mL injection Refills: 0 Dose: 100 Units Commonly known as: HumaLOG levETIRAcetam 500 mg tablet Refills: 0 Dose: 500 mg Signed by: PEGGY VillanuevaMEDICAL SECRETARY 500 mg, oral, 2 times daily Commonly known as: KEPPRA levoFLOXacin 500 mg tablet Refills: 0 Dose: 500 mg Commonly known as: LEVAQUIN melatonin 5 mg tablet Refills: 0 Dose: 5 mg Commonly known as: CIRCADIN metoprolol tartrate 25 mg tablet Refills: 0 Dose: 25 mg Signed by: Jesi Lewis APRN-MEDICAL SECRETARY 25 mg, oral, 2 times daily Commonly known as: LOPRESSOR mirtazapine 15 mg disintegrating tablet Refills: 0 Dose: 15 mg Commonly known as: REMERON CANDI-TAB nitrofurantoin (macrocrystal-monohydrate) 100 mg capsule Refills: 0 Dose: 100 mg Commonly known as: MACROBID nystatin powder Refills: 0 Commonly known as: MYCOSTATIN ondansetron 8 mg tablet Quantity: 30 tablet Refills: 2 Dose: 8 mg Signed by: Guillermo Mendoza 8 mg, oral, Every 8 hours PRN Commonly known as: ZOFRAN potassium chloride 10 MEQ CR capsule Refills: 0 Commonly known as: KLOR-CON SPRINKLE saliva stimulant comb. no.3 spray,non-aerosol Refills: 0 Dose: 1 spray Commonly known as: BIOTENE sennosides-docusate sodium 8.6-50 mg Refills: 0 Dose: 2 tablet Signed by: Jesi Lewis, TILE FITTER-MEDICAL SECRETARY 2 tablets, oral, Nightly Commonly known as: SENOKOT-S sertraline 50 mg tablet Refills: 0 Dose: 50 mg Commonly known as: ZOLOFT sulfamethoxazole-trimethoprim 800-160 mg per tablet Quantity: 60 tablet Refills: 1 For diagnoses: GBM (glioblastoma multiforme) ([facility]) Signed by: Guillermo Mendoza Take 1 tab daily, on Saturday and every week. Commonly known as: BACTRIM DS temozolomide 180 MG chemo capsule Quantity: 30 capsule Refills: 0 For diagnoses: GBM (glioblastoma multiforme) ([facility]) Dose: 180 mg Signed by: Patricio Gomez MD 180 mg, oral, Daily Commonly known as: TEMODAR traZODone 50 mg tablet Refills: 0 Dose: 25 mg Commonly known as: DESYREL Review of Symptoms: Review of Systems ECO- Symptomatic; in bed >50% of the day Physical Exam: General: Well appearing, in no acute distress. Vitals: BP 112/66 Pulse 70 Temp 36.4 C (97.6 F) (Oral) Resp 16 Wt 125 kg (275 lb 8 oz) LMP (LMP Unknown) Comment: post menopause SpO2 98% BMI 45.90 kg/m Body mass index is 45.9 kg/m . 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 The patient completed radiation treatment January 2025, MRI February 2025 are suspicious for interval disease progression. The patient's performance status has improved compared to 3 months ago. I recommend Temodar single agent with palliative intent. Plan to start adjuvant temodar (5 days/month). I will calculate her dose once I know her accurate height and weight. The patient's Temodar was calculated as 360 mg daily x 5 in the past. Common side effects of Temodar include nausea, cytopenia, and an increased risk of infection. Once patient starts I will see her on a monthly basis CBC CMP prior to visit. Plan to repeat another brain MRI in May 2025. Thank you. Guillermo Mendoza MD Please note that portions of this note were generated using voice recognition M*Modal dictation software. Although every effort was made to ensure the accuracy of this automated glass cleaning machine tender, some errors in glass cleaning machine tender may have occurred. CC: Patient Care Team: JACQUELINE Luna as PCP - General (Nurse Practitioner) PCP:FRED GRACIA Referring MD: Fred Gracia APRN-CNP documented in this encounterRegency Hospital [facility]10-01-2025 Hospital Discharge instructions Patient Education 02/17/2025 10:09:49 Acute Urinary Retention, Female Acute Urinary Retention, Female Acute urinary retention is a condition in which a person is unable to pass urine or can only pass alittle urine. This condition can happen suddenly and last for a short time. If left untreated, it can become long-term (chronic) and result in kidney damage or other serious complications. What are the causes? This condition may be caused by: Obstruction or narrowing of the tube that drains the bladder (urethra). This may be caused by surgery, problems with nearby organs, or injury to the bladder or urethra. Problems with the nerves in the bladder. Pelvic organ prolapse. Tumors in the area of the pelvis, bladder, or urethra. Vaginal childbirth. Bladder or urinary tract infection. Constipation. Certain medicines. What increases the risk? This condition is more likely to develop in women over age 50. Other chronic health conditions can increase the risk of acute urinary retention. These include: Diseases such as multiple sclerosis. Spinal cord injuries. Diabetes. Degenerative cognitive conditions, such as delirium or dementia. Psychological conditions. A woman may hold her urine due to trauma or because she does not want to use the bathroom. History of preexisting urinary retention. History of prior pelvic surgery, incontinence surgery, or radical pelvic surgery. What are the signs or symptoms? Symptoms of this condition include: Trouble urinating. Pain in the lower abdomen. How is this diagnosed? This condition is diagnosed based on a physical exam and your medical history. You may also have other tests, including: An ultrasound of the bladder or kidneys or both. Blood tests. A urine analysis. Additional tests may be needed, such as a CT scan, MRI, and kidney or bladder function tests. How is this treated? Treatment for this condition may include: Medicines. Placing a thin, sterile tube (catheter) into the bladder to drain urine out of the body. This is called an indwelling urinary catheter. After it is inserted, the catheter is held in place with a small balloon that is filled with sterile water. Urine drains from the catheter into a collection bag outside of the body. Behavioral therapy. Treatment for other conditions. If needed, you may be treated in the hospital for kidney function problems or to manage other complications. Follow these instructions at home: Medicines Take tqtc-boj-[id number] and prescription medicines only as told by your health care provider. Avoid certain medicines, such as decongestants, antihistamines, and some prescription medicines. Do not take any medicine unless your health care provider approves. If you were prescribed an antibiotic medicine, take it as told by your health care provider. Do notstop using the antibiotic even if you start to feel better. General instructions Do not use any products that contain nicotine or tobacco. These products include cigarettes, chewing tobacco, and vaping devices, such as e-cigarettes. If you need help quitting, ask your health careprovider. Drink enough fluid to keep your urine pale yellow. If you have an indwelling urinary catheter, follow the instructions from your health care provider. Monitor any changes in your symptoms. Tell your health care provider about any changes. If instructed, monitor your blood pressure at home. Report changes as told by your health care provider. Keep all follow-up visits. This is important. Contact a health care provider if: You have uncomfortable bladder contractions that you cannot control (spasms). You leak urine with the spasms. Get help right away if: You have chills or a fever. You have blood in your urine. You have a catheter and the following happens: ?Your catheter stops draining urine. ?Your catheter falls out. Summary Acute urinary retention is a condition in which a person is unable to pass urine or can only pass alittle urine. If left untreated, this can result in kidney damage or other serious complications. One cause of this condition may be obstruction or narrowing of the tube that drains the bladder (urethra). This may be caused by surgery, problems with nearby organs, or injury to the bladder or urethra. Treatment may include medicines and placement of an indwelling urinary catheter. Monitor any changes in your symptoms. Tell your health care provider about any changes. This information is not intended to replace advice given to you by your health care provider. Make sure you discuss any questions you have with your health care provider. Document Revised: 01/25/2021 Document Reviewed: 01/25/2021 [employer] Patient Education 2023 [email or web address]. Follow Up Care 11/24/2024 09:05:51 With:Silvia Bustos PA-C, URL Address: When:Within 3 Month(s) [facility] 10-01-2025 NotePatient Education Obstetrics and Gynecology Acute Urinary [...] these instructions at home: Medicines ??? Take [id number] and prescription medicines only as told by [...] provider. Document Revised: 01/25/2021 Document Reviewed: 01/25/2021 [employer] Patient Education ? 2023 [email or web address].[email or web address] 01-21-2025 History of Present illness Narrative* Nancy Hernandez RN - 01/21/2025 11:28 AM EDT Error documented in this encounterRegency Hospital [facility]08-28-2025 History of Present illness Narrative* RAMIREZ Paz - 01/14/2025 12:22 PM EDT 08:35: Call placed to pt son Aman, introduced self, role & reason for call to educate on [employer] application however production underwriter would encouraged pt/family to make inquiry withFS to make sure this income would not interfere with any Medicaid application &/or for [place]. Call to son was dropped, production underwriter attempted 4x to return call but goes immediately to voic email. 10:30: production underwriter met with pt & provided physician signed [employer] application& brochure, pt informs her son will be visiting her tomorrow & she will address with him. Encouraged pt/son to call production underwriter with any questions; production underwriter available & following. documented in this encounterRegency Hospital [facility]08-27-2025 History of Present illness Narrative* RAMIREZ Paz - 01/13/2025 12:32 PM EDT Introduced self & role to pleasant pt. Pt is currently at [facility] for rehab & informs she will then move into [facility] Living under [place] Medicaid Waiver. Educated pt on [employer] & informed pt that production underwriter is unsure if receiving funding would interfere with her Medicaid benefit. Informed pt that production underwriter will provide form/info tomorrow &pt/her son will need to contact [facility] to make inquiry; pt agreeable & informs her son works 3rd shift & best to call before 10:00. Linker [employer] will attempt to reach pt son tomorrow a.m.; production underwriter available & following. documented in this encounterMagruder Memorial HospitalDevotee Forest Health Medical [id number] Miscellaneous Notes* Telephone Encounter - Matthew Velazquez - 01/05/2025 4:08 PM EDT Pharmacy PA team received PA request for TEMOZOLOMIDE. No prior authorization is required through patient's MEDICARE PART B pharmacy benefit. Test Claim Results Medication name, strength & form: TEMOZOLOMIDE 180MG CAPSULE Qty/Day Supply: 3030 Days Result: No Prior Authorization required at this time Required to fill with Specialty Pharmacy: YES Eligible to fill at [facility] Specialty Pharmacy: NO Preferred Specialty Pharmacy: [id number] Estimated Co-pay at [facility] Specialty Pharmacy: Unable to determine cost due to specialty pharmacy requirement Medication Assistance: No copay assistance needed at this time. Was the patient contacted by PA team: Yes but was unable to leave a message. VM is full. documented in this encounterMagruder Memorial HospitalMobileMD [id number] Telephone encounter Note* Telephone Encounter - Matthew Velazquez - 01/05/2025 4:08 PM EDT Pharmacy PA team received PA request for TEMOZOLOMIDE. No prior authorization is required through patient's MEDICARE PART B pharmacy benefit. Test Claim Results Medication name, strength & form: TEMOZOLOMIDE 180MG CAPSULE Qty/Day Supply: 3030 Days Result: No Prior Authorization required at this time Required to fill with Specialty Pharmacy: YES Eligible to fill at [facility] Specialty Pharmacy: NO Preferred Specialty Pharmacy: [id number] Estimated Co-pay at [facility] Specialty Pharmacy: Unable to determine cost due to specialty pharmacy requirement Medication Assistance: No copay assistance needed at this time. Was the patient contacted by PA team: Yes but was unable to leave a message. VM is full. [facility] RehabilitationComecer [id number] History of Present illness Narrative* Nida Chowdhury RN - 12/25/2024 10:21 AM EDT The patient is here for follow up of glioblastoma and current radiaition treatment Dr. Mendoza recommends: Hold temodar during radiation. MRI w/wo in early 02/2025. If scan stable, plan to start adjuvant temodar (5 days/month). F/u in mid 02/2025 Calendar, orders and AVS given to patient documented in this encounterRegency Hospital [facility]08-08-2025 History of Present illness Narrative* Guillermo Mendoza MD - 12/25/2024 9:45 AM EDT Images from the original note were not included. [facility] 12/25/24 Anupama Vasquez is a 54 y.o. 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 Negative for MGMT promoter methylation. RADIATION TREATMENT FROM 12/06/24 Interval history: Most recently in early November 2024, the patient was hospitalized in [place] ICU for catheter-relatedsepsis. She was started on radiation treatment 2 weeks ago, already snf done with her radiation. Overall she is doing much better, able to walk with some assistance. Still relies on wheelchair to get around. She told me she is able to see better with much less double vision,. She has no difficulty with her speech but has difficulty to use her phone. She has a son and a daughter. She is here inclinic by herself. Past Medical History: Diagnosis Date Anemia Chronic kidney disease Depression Hypertension MS ([facility]) [facility] [place] Stroke ([facility] Past Surgical History: Procedure Laterality Date CARPAL TUNNEL RELEASE Left SHOULDER ARTHROSCOPY W/ ROTATOR CUFF REPAIR Left SYNAPTIVE CRANIOTOMY EXCISION TUMOR Right 09/23/2024 Performed by Jair Espinal MD at [facility] Family History Problem Relation Age of Onset Stroke Mother Social History Socioeconomic History Marital status: Single Tobacco Use Smoking status: Some Days Current packs/day: 0.50 Types: Cigarettes Smokeless tobacco: Never Vaping Use Vaping status: Never Used Substance and Sexual Activity Alcohol use: Never Drug use: Yes Types: Marijuana Sexual activity: Defer Social Drivers of Health Financial Resource Strain: High Risk (06/04/2023) Received from [facility] Overall Financial Resource Strain (CARDIA) Difficulty of Paying Living Expenses: Very hard Food Insecurity: No Food Insecurity (12/24/2024) Hunger Screening Food Insecurity - Worry: Never True Food Insecurity - Inability: Never True Transportation Needs: No Transportation Needs (08/28/2024) PRAPARE - Transportation Lack of Transportation (Medical): No Lack of Transportation (Non-Medical): No Physical Activity: Sufficiently Active (06/04/2023) Received from [facility] Exercise Vital Sign Days of Exercise per Week: 4 days Minutes of Exercise per Session: 40 min Stress: No Stress Concern Present (06/04/2023) Received from [facility] - Occupational Stress Questionnaire Feeling of Stress : Only a little Social Connections: Moderately Integrated (06/04/2023) Received from [facility] Social Connection and Isolation Panel [NHANES] Frequency of Communication with Friends and Family: Twice a week Frequency of Social Gatherings with Friends and Family: Once a week Attends Confucianist Services: 1 to 4 times per year [...] Dose: 500 mg Signed by: Jesi Lewis TILE FITTER-MEDICAL SECRETARY 500 mg, oral, 2 times daily Commonly known as: KEPPRA levoFLOXacin 500 mg tablet Refills: 0 Dose: 500 mg Commonly known as: LEVAQUIN metoprolol tartrate 25 mg tablet Refills: 0 Dose: 25 mg Signed by: Jesi Lewis TILE FITTER-MEDICAL SECRETARY 25 mg, oral, 2 times daily Commonly [...] Dose: 2 tablet Signed by: Jesi Lewis TILE FITTER-MEDICAL SECRETARY 2 tablets, oral, Nightly Commonly known as: SENOKOT-S sulfamethoxazole-trimethoprim 800-160 mg per tablet Quantity: 60 tablet Refills: 1 For diagnoses: GBM (glioblastoma multiforme) ([facility]) Signed by: Guillermo Mendoza Take 1 tab daily, on Saturday and every week. Commonly known as: BACTRIM DS temozolomide 180 MG chemo capsule Quantity: 42 capsule Refills: 0 For diagnoses: GBM (glioblastoma multiforme) ([facility]) Dose: 75 mg/m2/day Signed by: Guillermo Mendoza [...] Addressed This Visit Other GBM (glioblastoma multiforme) ([facility]) - Primary Impression: Brain glioblastoma, IDH-wildtype (GUEST ADVISOR WHO grade 4), negative for MGMT promoter [...] recommend Temodar during her radiation due to herperformance status. Hold temodar during radiation. MRI w/wo [...] this note were generated using voice recognition [email or web address] dictation software. Although every effort was made to ensure the accuracy of this automated glass cleaning machine tender, some errors in glass cleaning machine tender may have occurred. CC: Patient Care Team: Fred Gracia APRN-MEDICAL SECRETARY as PCP - General (Nurse Practitioner) PCP:FRED GRACIA Referring MD: Fred Gracia APRN-* documented in this encounterRegency Hospital [facility]08-08-2025 Instructions* Patient Instructions* Guillermo Mendoza MD - 12/25/2024 9:45 AM EDT Hold temodar during radiation. MRI w/wo in early 02/2025. If scan stable, plan to start adjuvant temodar (5 days/month). F/u in mid 02/2025 documented in this encounterRegency Hospital [facility]edo07-24-2025 History of Present illness Narrative* She Drew RN - 12/10/2024 9:53 AM EDT Patient saw Dr. Mendoza today for follow up. Orders received to continue to hold temodar. Get cbc and cmp this week. Weight and height rechecked today. Dr. Mendoza. Phone call to [facility] spoke with Delores to continue to hold Temodar and to get cbc and cmp. Will follow up in two weeks to reevaluate. documented in this encounterRegency Hospital [facility]edo07-24-2025 History of Present illness Narrative* Guillermo Mendoza MD - 12/10/2024 9:15 AM EDT Images from the original note were not included. [facility] 12/10/24 Anupama Vasquez is a 54 y.o. 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 Negative for MGMT promoter methylation. RADIATION TREATMENT FROM 12/06/24 Interval history: Most recently in early November 2024, the patient was hospitalized in [place] ICU for catheter-relatedsepsis. She was started on radiation treatment 4 days ago. She told me she can not remember the information I gave her from last consultation regarding the side effects of Temodar. She is currently wheelchair- bound. She told me she is able to see better withmuch less double vision,. She has no difficulty with her speech but has difficulty to use her phone. She has a son and a daughter. She is here in clinic by herself. Past Medical History: Diagnosis Date MS (multiple sclerosis) ([facility]) 2012 Past Surgical History: Procedure Laterality Date CARPAL TUNNEL RELEASE Left SHOULDER ARTHROSCOPY W/ ROTATOR CUFF REPAIR Left SYNAPTIVE CRANIOTOMY EXCISION TUMOR Right 09/23/2024 Performed by Jair Espinal MD at [facility] Family History Problem Relation Age of Onset Stroke Mother Social History Socioeconomic History Marital status: Single Tobacco Use Smoking status: Some Days Current packs/day: 0.50 Types: Cigarettes Smokeless tobacco: Never Vaping Use Vaping status: Never Used Substance and Sexual Activity Alcohol use: Never Drug use: Yes Types: Marijuana Sexual activity: Defer Social Drivers of Health Financial Resource Strain: High Risk (06/04/2023) Received from [facility] Overall Financial Resource Strain (CARDIA) Difficulty of Paying Living Expenses: Very hard Food Insecurity: No Food Insecurity (11/13/2024) Hunger Screening Food Insecurity - Worry: Never True Food Insecurity - Inability: Never True Transportation Needs: No Transportation Needs (08/28/2024) PRAPARE - Transportation Lack of Transportation (Medical): No Lack of Transportation (Non-Medical): No Physical Activity: Sufficiently Active (06/04/2023) Received from [facility] Exercise Vital Sign Days of Exercise per Week: 4 days Minutes of Exercise per Session: 40 min Stress: No Stress Concern Present (06/04/2023) Received from [facility] [employer] - Occupational Stress Questionnaire Feeling of Stress : Only a little Social Connections: Moderately Integrated (06/04/2023) Received from [facility] Social Connection and Isolation Panel [NHANES] Frequency of Communication with Friends and Family: Twice a week Frequency of Social Gatherings with Friends and Family: Once a week Attends Confucianist Services: 1 to 4 times per year [...] Refills: 1 For diagnoses: GBM (glioblastoma multiforme) ([facility]) Signed by: Guillermo Mendoza Take 1 tab daily, on Saturday and every week. Commonly known as: BACTRIM DS temozolomide 180 MG chemo capsule Quantity: 42 capsule Refills: 0 For diagnoses: GBM (glioblastoma multiforme) ([facility]) Dose: 75 mg/m2/day Signed by: Guillermo Mendoza [...] Ht 165 cm (5' 4.96 ) Wt 128.6kg (283 lb 9.6 oz) SpO2 98% BMI [...] and Hemostatic Thrombocytopenia Other GBM (glioblastoma multiforme) ([facility]) - Primary Impression: Brain glioblastoma, IDH-wildtype (GUEST ADVISOR WHO grade 4), negative for MGMT promoter [...] this note were generated using voice recognition [email or web address] dictation software. Although every effort was made to ensure the accuracy of this automated glass cleaning machine tender, some errors in glass cleaning machine tender may have occurred. CC: Patient Care Team: Fred Gracia APRN-MEDICAL SECRETARY as PCP - General (Nurse Practitioner) PCP:FRED GRACIA Referring MD: Fred Gracia APRN-* documented in this encounterRegency Hospital [facility]edo07-18-2025 History of Present illness Narrative* She Drew RN - 12/04/2024 8:55 AM EDT Images from the original note were not included. Spoke with Kristine at the [facility]. They will hold Temodar until she [...] temodar patient was admitted over weekend at [facility] ICU, for sepsis (believed to be r/t alexis catheter/UTI) . She was discharged and will be on antibiotics for one week. Radiation plans to start Saturday regardless of temodar starting. When can she start the temodar? documented in this encounterRegency Hospital [facility]07-17-2025 History of Present illness Narrative* Nancy Hernandez RN - 12/03/2024 2:24 PM EDT Linker Up contacts [facility] [phone]; speaks to Shiva/Transportation Shiva confirms transportation to bring patient starting 12/07/24 at 10:15am Kristine at [place] reports patient still on antibiotic course until 12/12/24 Update provided to She/[facility] and she will consult Dr Mendoza regarding Temodar start date Dr Xiong orders to still begin radiation, even if Temodar is held/delayed documented in this encounterRegency Hospital [facility]07-14-2025 History of Present illness Narrative* Nancy Hernandez RN - 11/30/2024 12:49 PM EDT Linker Up contacts [facility] [phone] to inform that plan is ready to begin radiation treatment, as soon as tomorrow if possible It is confirmed that Temodar has been received for patient and ready to be administered per our direction Update received that patient was admitted over weekend and is currently IP at [facility], for sepsis (believed to be r/t alexis catheter/UTI) documented in this encounterRegency Hospital [facility]07-08-2025 History of Present illness Narrative* Priyanka Velez RN - 11/24/2024 2:40 PM EDT Received a call from Jessica, nurse at [facility]. She has informed our office that [...] start date and instructions. documented in this encounterRegency Hospital [facility]07-08-2025 Hospital Discharge instructions Patient Education 11/24/2024 09:06:02 Acute Urinary Retention, Female, Hjky-hs-Oanv Acute Urinary Retention, Female Acute urinary retention is when a person cannot pee (urinate) at all, or can only pee a little. This can come on all of a sudden. If it is not treated, it can lead to kidney problems or other seriousproblems. What are the causes? A problem with [...] Follow these instructions at home: Medicines Take ruas-hye-hhkhlep and prescription medicines only as told by [...] provider. Document Revised: 01/25/2021 Document Reviewed: 01/25/2021 [employer] Patient Education 2023 [email or web address]. Follow Up Care 10/09/2024 11:33:20 With:SHOAIB FIGUEROA, REGINA Pedraza, URL Address: [address] [place] [address]. [place] [address] When:Within 3 Month(s) [facility] 07-08-2025 NotePatient Education Obstetrics and Gynecology Acute Urinary Retention, Female Acute urinary retention is when a person cannot pee (urinate) at all, or can only pee a little. This can come on all of a sudden. If it is not treated, it can lead to kidney problems or other seriousproblems. What are the causes? A problem with [...] these instructions at home: Medicines ??? Take ercs-npt-kgjxlpq and prescription medicines only as told by your doctor. Ask your doctor what medicines you should stay away from. ??? If you were given an antibiotic medicine, take it as told by your doctor. Do not stop taking iteven if you start to feel better. General [...] provider. Document Revised: 01/25/2021 Document Reviewed: 01/25/2021 [employer] Patient Education ? 2023 [email or web address].[facility] 11-19-2024 Evaluation note* Diagnosis Onset Date Resolution Status Admit Date BRANDON (acute kidney injury) acuteJuly 2024 2:21pmGBM (glioblastoma multiforme)acuteJuly 2024 2:21pmHyperlipemiaacuteJuly 2024 2:21pmHypertensionacuteJuly 2024 2:21pmMultiple sclerosisacuteJuly 2024 2:21pm [facility] Work Phone: 1(727) 361-952607-03-2025 Evaluation note* Diagnosis Onset Date Resolution Status Admit Date BRANDON (acute kidney injury) acuteJuly 2024 2:21pmGBM (glioblastoma multiforme)acuteJuly 2024 2:21pmHyperlipemiaacuteJuly 2024 2:21pmHypertensionacuteJuly 2024 2:21pmMultiple sclerosisacuteJuly 2024 2:21pmHistory of colon polypsacute December 29, 2024 1:50pmAKI (acute kidney injury)acuteAugust 2024 1:32pm GBM (glioblastoma multiforme)acuteAugust 2024 1:32pmHyperlipemiaacute January 14, 2025 1:32pmHypertensionacuteAugust 2024 1:32pmMultiple sclerosisacuteAugust 2024 1:32pmPost-renal acute kidney injurynoneactive January 14, 2025 1:32pm [facility] Work Phone: 1(692) 596-264907-03-2025 Evaluation note* Diagnosis Onset Date Resolution Status Admit Date BRANDON (acute kidney injury) acuteJuly 2024 2:21pmHyperlipemiaacuteJuly 2024 2:21pmHypertension acuteJuly 2024 2:21pmMultiple sclerosisacuteJuly 2024 2:21pm [facility] Work Phone: 1(102) 233-698806-27-2025 Miscellaneous Notes* Telephone Encounter - Cuca Silvary - 11/13/2024 12:46 PM EDT Spoke with patient to let her know that she will be responsible for 40% of the bills. Patient states that she is ok with this. documented in this encounterRegency Hospital [facility]edo06-27-2025 Telephone encounter Note* Telephone Encounter - Cuca Sullivan - 11/13/2024 12:46 PM EDT Spoke with patient to let her know that she will be responsible for 40% of the bills. Patient states that she is ok with this. [facility]-26-[facility] History of Present illness Narrative* Nancy Hernandez RN - 11/12/2024 3:45 PM EDT Patient accompanied by child nutrition assistant from [facility] for Consult with Dr Sandoval (and Dr Mendoza) for diagnosis of Glioblastoma Craniotomy performed by Dr Espinal on 09/23/24 MR/Brain for SRS treatment planning tomorrow 11/13 at 1015am; Consent obtained to perform CT/Sim after with intention to plan concurrent ChemoRT with daily Temodar AVS provided with understanding verbalized documented in this encounterRegency Hospital [facility]edo06-26-2025 History of Present illness Narrative* She Drew RN - 11/12/2024 1:53 PM EDT Patient saw Dr. Mendoza for consult for glioblastoma. Patient unsure if she wants to pursue concurrent chemo with RT. Will call patient in two weeks to see if she has made her decision. documented in this encounterRegency Hospital [facility]edo06-26-2025 History of Present illness Narrative* Nancy Hernandez RN - 11/12/2024 12:17 PM EDT RN attempted to contact Pt daughter Anna and son Aman per request of patient and Dr Sandoval to further discuss case and treatment planning; No answer on either line; left vm requesting return call documented in this encounterRegency Hospital [facility]edo06-26-2025 History of Present illness Narrative* Guillermo Mendoza MD - 11/12/2024 11:00 AM EDT Images from the original note were not included. [facility] 11/12/24 Anupama Vasquez is a 54 y.o. 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 Negative for MGMT promoter methylation. The patient came to her clinic for my oncologic or opinion regarding further treatment. She is hereaccompanied by a caregiver from senior care. She told me she is able to [...] Medical History: Diagnosis Date MS (multiple sclerosis) ([facility]) 2012 Past Surgical History: Procedure Laterality Date CARPAL TUNNEL RELEASE Left SHOULDER ARTHROSCOPY W/ ROTATOR CUFF REPAIR Left SYNAPTIVE CRANIOTOMY EXCISION TUMOR Right 09/23/2024 Performed by Jair Espinal MD at [facility] Family History Problem Relation Age of Onset Stroke Mother Social History Socioeconomic History Marital status: Single Tobacco Use Smoking status: Some Days Current packs/day: 0.50 Types: Cigarettes Smokeless tobacco: Never Vaping Use Vaping status: Never Used Substance and Sexual Activity Alcohol use: Never Drug use: Yes Types: Marijuana Sexual activity: Defer Social Drivers of Health Financial Resource Strain: High Risk (06/04/2023) Received from [facility] Overall Financial Resource Strain (CARDIA) Difficulty of Paying Living Expenses: Very hard Food Insecurity: No Food Insecurity (11/10/2024) Hunger Screening Food Insecurity - Worry: Never True Food Insecurity - Inability: Never True Transportation Needs: No Transportation Needs (08/28/2024) PRAPARE - Transportation Lack of Transportation (Medical): No Lack of Transportation (Non-Medical): No Physical Activity: Sufficiently Active (06/04/2023) Received from [facility] Exercise Vital Sign Days of Exercise per Week: 4 days Minutes of Exercise per Session: 40 min Stress: No Stress Concern Present (06/04/2023) Received from [facility] [employer] - Occupational Stress Questionnaire Feeling of Stress : Only a little Social Connections: Moderately Integrated (06/04/2023) Received from [facility] Social Connection and Isolation Panel [NHANES] Frequency of Communication with Friends and Family: Twice a week Frequency of Social Gatherings with Friends and Family: Once a week Attends Confucianist Services: 1 to 4 times per year [...] Dose: 500 mg Signed by: Jesi Lewis TILE FITTER-MEDICAL SECRETARY 500 mg, oral, 2 times daily Commonly known as: KEPPRA levoFLOXacin 500 mg tablet Refills: 0 Dose: 500 mg Commonly known as: LEVAQUIN metoprolol tartrate 25 mg tablet Refills: 0 Dose: 25 mg Signed by: Jesi Lewis, TILE FITTER-MEDICAL SECRETARY 25 mg, oral, 2 times daily Commonly known as: LOPRESSOR mirtazapine 15 mg disintegrating tablet Refills: 0 Dose: 15 mg Commonly known as: REMERON CANDI-TAB nystatin powder Refills: 0 Commonly known as: MYCOSTATIN potassium chloride 10 MEQ CR capsule Refills: 0 Commonly known as: KLOR-CON SPRINKLE sennosides-docusate sodium 8.6-50 mg Refills: 0 Dose: 2 tablet Signed by: Jesi Lewis TILE FITTER-MEDICAL SECRETARY 2 tablets, oral, Nightly Commonly known as: [...] Addressed This Visit Other GBM (glioblastoma multiforme) ([facility]) - Primary Impression: Brain glioblastoma, IDH-wildtype (GUEST ADVISOR WHO grade 4), negative for MGMT promoter [...] this note were generated using voice recognition [email or web address] dictation software. Although every effort was made to ensure the accuracy of this automated glass cleaning machine tender, some errors in glass cleaning machine tender may have occurred. CC: Patient Care Team: Fred Gracia APRN-MEDICAL SECRETARY as PCP - General (Nurse Practitioner) Jacob Kaiser MD as Consulting Physician (Radiation Oncology) PCP:FRED GRACAI Referring MD: Reji Garcia APRN-* documented in this encounterRegency Hospital [facility]edo06-26-2025 Instructions* Patient Instructions* Guillermo Mendoza MD - 11/12/2024 11:00 AM EDT Follow-up in 4 weeks to finalize treatment plan. The patient is deciding whether she wants to proceed with treatment. Plan for concurrent chemoradiation with Temodar documented in this encounterRegency Hospital [facility]edo06-25-2025 Miscellaneous Notes* Telephone Encounter - Leyla Gusman - 11/11/2024 1:02 PM EDT Received referral for Radiation consult. Patient is currently at [facility]. I called andwas transferred to [place] I was told he is the transportation vault person. [phone] documented in this encounterRegency Hospital [facility]edo06-25-2025 Telephone encounter Note* Telephone Encounter - Leyla Gusman - 11/11/2024 1:02 PM EDT Received referral for Radiation consult. Patient is currently at [facility]. I called andwas transferred to [place] I was told he is the transportation vault person. [phone] [facility]06-25-2025 Miscellaneous Notes* Telephone Encounter - Anya Soni RN - 11/11/2024 11:19 AM EDT Dia from [facility] calls asking that the office note be sent to the [facility] so they can see the plan of care. Faxed as per request. documented in this encounterRegency Hospital Toledo06-25-2025 Telephone encounter Note* Telephone Encounter - Anya Soni RN - 11/11/2024 11:19 AM EDT Dia from [facility] calls asking that the office note be sent to the [facility] so they can see the plan of care. Faxed as per request. [facility]06-25-[facility]25 Miscellaneous Notes* Telephone Encounter - Ellie Coleman CMA - 11/11/2024 9:01 AM EDT L/M ON V/M Daughter Anna asked her to call regarding CARDIOLOGY FELLOW referral from Dr. Espinal, patient is currently staying at [facility], asking where patient would like to be seen at for appointment,ask for Ellie. documented in this encounterRegency Hospital [facility]edo06-25-2025 Telephone encounter Note* Telephone Encounter - Ellie Coleman CMA - 11/11/2024 9:01 AM EDT L/M ON V/M Daughter Anna asked her to call regarding CARDIOLOGY FELLOW referral from Dr. Espinal, patient is currently staying at [facility], asking where patient would like to be seen at for appointment,ask for Ellie. [facility]06-24-[facility]25 History of Present illness Narrative* JACQUELINE Goel - 11/10/2024 1:10 PM EDT Images from the original note were not included. [facility] [address] [place] [address], [address] [place] [address] * CHART NOTE ? 11/10/2024 Patient: Anupama Vasquez 1970 [id number] Nurse Practitioner: Reji Garcia CNP Physician: Jair Espinal MD, FAANS IMPRESSION / PLAN 54 y.o. female S/P synpative craniotomy excision tumor performed on 09/23/24 reporting lateral doublevision that began approximately 3 weeks postop. I will refer her to an material processor to discuss the use of PRISM glasses [...] weeks postop. She is currently at the [facility] where she is doing PT 3 [...] Resource Strain: High Risk (06/04/2023) Received from [facility] Overall Financial Resource Strain (CARDIA) Difficulty of Paying Living Expenses: Very hard Food Insecurity: No Food Insecurity (09/16/2024) Hunger Screening Food Insecurity - Worry: Never True Food Insecurity - Inability: Never True Transportation Needs: No Transportation Needs (08/28/2024) PRAPARE - Transportation Lack of Transportation (Medical): No Lack of Transportation (Non-Medical): No Physical Activity: Sufficiently Active (06/04/2023) Received from [facility] Exercise Vital Sign Days of Exercise per Week: 4 days Minutes of Exercise per Session: 40 min Stress: No Stress Concern Present (06/04/2023) Received from [facility] [employer] [facility] - Occupational Stress Questionnaire Feeling of Stress : Only a little Social Connections: Moderately Integrated (06/04/2023) Received from [facility] Social Connection and Isolation Panel [NHANES] Frequency of Communication with Friends and Family: Twice a week Frequency of Social Gatherings with Friends and Family: Once a week Attends Confucianist Services: 1 to 4 times per year [...] record of the patient encounter. Inadvertent computerized glass cleaning machine tender errors related to syntax, spelling, homophones, and/or [...] JACQUELINE Goel 11/10/24 1420 documented in this encounterRegency Hospital [facility]edo06-24-2025 Instructions* Patient Instructions* Steffanie Marte CMA - 11/10/2024 1:10 PM EDT Patient seen today by KISHA. Referred to opthalmology. Medical oncology and rad/onc. SS * Attachments The following attachments cannot be sent through Care Everywhere. * Quitting smoking for adults (Tajik) documented in this encounterRegency Hospital Toledo05-23-2025 NoteUrology Office/Clinic Note Chief Complaint referral, [place], urinary retention after brain surgery HPI Staff 54 yr old female here due to Urinary retention. Pt has Alexis. Denies any issues w alexis. No gross hematuria. No pain. No leaking around alexis. Pt has cmv driver with her from [facility]. Pt is her own medical [...] of urine, unspecified) Hx MS. Transferred from [facility] to [facility] on 09/18/24 d/t BRANDON, brain mass w shift and AMS. 1.5Lretention upon admission w BRANDON (Bowl Attendant 15.68) bilat hydro on US, improved to [...] E&M of New Patient Moderate 45-59 Min 22740 Influenza immunization status assessed 1030F Medication list [...] Recent) 3074F Follow-up With When Contact Information SHOAIB FIGUEROA, REGINA Pedraza, LEODAN Within 6 weeks [address] [place] [address] Business (1) Additional Instructions: Patient [...] Use:. Never Smokeless Tobacco Use:. Cigarettes, Yes, [facility]/2024[facility]:Result Comment: Electronically Signed By: REGINA MATTHEWS [email or web address]\Date and Time Signed: 10/09/2510:41 [id number] NotePatient Education Obstetrics and Gynecology Acute Urinary [...] these instructions at home: Medicines ??? Take [id number] and prescription medicines only as told by [...] provider. Document Revised: 01/25/2021 Document Reviewed: 01/25/2021 [employer] Patient Education ? 2023 [employer] 09-29-2024 Miscellaneous Notes* Telephone Encounter - [...] Incision is healing well. [facility] encounter Note* Telephone Encounter - Anya [...] with baby shampoo. Incision is healing well. [facility] Nurse Note* Elma Moreno RN - 09/29/2024 12:17 AM EDTSummary: discharge Report called and [facility] to [facility] Patient called and talked to daughter let her know that she was going to be leaving, patient had nobelongings to send with her Patient left with [facility] - Elma Moreno RN 09/29/24 12:19 AM * Laurel Lagunas RN - 09/25/2024 9:46 AM EDT Multidisciplinary Rounds Attendees: Bedside RN, Unit clinical lead, PT, OT, PROPERTY INVESTOR, and Care navigation Diet: Dietary Orders (From admission, onward) Start Ordered 09/24/24 1405 Adult diet Level 5 Minced and Moist diet; No straws Diet effective now Comments: Mildly thick liquids Question Answer Comment Diet Type: Level 5 Minced and Moist diet Additional Liquid/Fluid Modifiers: No straws 09/24/24 1407 PT OT PROPERTY INVESTOR: PT OT PROPERTY INVESTOR Orders (From admission, onward) Start Ordered 09/25/24 [...] Bedside RN, Unit clinical lead, PT, OT, PROPERTY INVESTOR, and Care navigation Diet: Dietary Orders (From admission, onward) Start Ordered 09/23/242142 Adult diet Regular Texture Diet effective now Question: Diet Type: Answer: Regular Texture 09/23/242142 PT OT PROPERTY INVESTOR: PT OT PROPERTY INVESTOR Orders (From admission, onward) Start Ordered 09/24/24 [...] Plan: Needs PT/OT evaluation [facility] Miscellaneous Notes* Plan of Care - Elma Moreno RN - 09/29/2024 12:15 AM EDT Problem: Pain Goal: Patient goal is pain score less than 4, able to rest, and participant in treatment plan as appropriate Description: INTERVENTIONS: 1. Encourage patient or legal front office representative to report early pain and ask [...] per policy 9. Teach patient or legal front office representative interventions for comforting Outcome: Adequate for [...] at the bedside 7. Instruct patient/ patient front office representative about use of safety devices 8. Include patient/ patient front office representative in decisions related to safety Outcome: [...] hygiene technique. 7. Identify and instruct patient/patient front office representative in use of appropriate isolation precautionsfor identified infection/symptoms. 8. Provide and discuss with patient/patient front office representative on educational MDRO sheet. 9. Encourage and monitor nutritional status daily and consult picc nurse if indicated. 10. Implement neutropenic guidelines as needed. Outcome: Adequate for Discharge Problem: Knowledge Deficit Goal: Patient/patient front office representative demonstrates understanding of disease process, treatment [...] supplement as ordered 13. Collaborate with clinical picc nurse 14. Include patient/ patient's front office representative in decisions related to nutrition Outcome: [...] Score of =/> 25 or indicated by [facility] Assessment Goal: Patient should be free from fall Description: Interventions: 1. [place] to environment 2. Hourly rounds addressing the [...] non-skid footwear 11. Teach patient and patient front office representative to maintain environment for safety and [...] (cane, walker) within reach 19. Request patient front office representative bring adaptive equipment/mobility aids from home or obtain and provide as needed 20. Consult pharmacy regarding effects of med's affecting mobility, cognition, and alternatives 21. Obtain physician order for PT if risk factors associated with mobility are present 22. Obtain physician order for OT as appropriate 23. Utilize diversional activities 24. Educate patient and patient front office representative how to maintain a safe environment during visitationtimes (notify nurse prior to leaving bedside) 25. Consider appropriateness of medical or non-medical records clerk 26. Set up voiding schedule as appropriate [...] as ordered Outcome: Adequate for Discharge * PT/OT/PROPERTY INVESTOR - Lorna Dias CCC-PROPERTY INVESTOR - 09/28/2024 2:37 PM EDT Speech Therapy [...] after meals Medications: In applesauce/puree Discharge Recommendations: longterm facility Plan Frequency: 2-3days/week Duration: until discharge [...] PO intake following exam. Prognosis Services: Skilled PROPERTY INVESTOR services to address above deficits Prognosis/Potential: Good [...] Dysphagia Problem: Swallowing Dates: Start: 09/24/24 Disciplines: PROPERTY INVESTOR Goal: LTG: Patient will tolerate least restrictive diet recommended by PROPERTY INVESTOR without signs and symptoms of aspiration 90% of the time Dates: Start: 09/24/24 Expected End: 10/25/24 Disciplines: PROPERTY INVESTOR Outcomes Date/Time User Outcome 09/28/24 MARCELA WhitfieldPROPERTY INVESTOR Progressing Goal: STG: Patient will complete safety strategies independently during PO intake 90% of the time Dates: Start: 09/24/24 Expected End: 10/25/24 Disciplines: PROPERTY INVESTOR Outcomes Date/Time User Outcome 09/28/24 MARCELA WhitfieldPROPERTY INVESTOR Progressing Goal: STG: Patient will complete oral/ pharyngeal strengthening program with resistance with 90% accuracy with minimal cueing Dates: Start: 09/24/24 Expected End: 10/25/24 Disciplines: PROPERTY INVESTOR Outcomes Date/Time User Outcome 09/28/24 [facility] Progress[facility] Goal: STG: Patient will tolerate therapeutic feeding trials of advanced textures with 90% accuracy with minimal cueing Dates: Start: 09/24/24 Expected End: 10/25/24 Disciplines: PROPERTY INVESTOR Outcomes Date/Time User Outcome 09/28/24 MARCELA WhitfieldPROPERTY INVESTOR Progressing Template: ST - Rehab Speech Problem: Auditory Comprehension Dates: Start: 09/24/24 Disciplines: PROPERTY INVESTOR Goal: LTG: Patient will comprehend communication related to basic medical and social needs and utilize compensatory strategies to maintain safety in a functional living environment Dates: Start: 09/24/24 Expected End: 10/25/24 Disciplines: PROPERTY INVESTOR Goal: STG: Patient will answer complex yes/no questions with 90% accuracy with minimal cueing Dates: Start: 09/24/24 Expected End: 10/25/24 Disciplines: PROPERTY INVESTOR Goal: STG: Patient will complete 1-3 step commands with 90% accuracy with minimal cueing Dates: Start: 09/24/24 Expected End: 10/25/24 Disciplines: PROPERTY INVESTOR Goal: STG: Patient will complete simple, phrase level auditory comprehension tasks with 90% accuracy with minimal cueing Dates: Start: 09/24/24 Expected End: 10/25/24 Disciplines: PROPERTY INVESTOR Problem: Cognitive Linguistic Dates: Start: 09/24/24 Disciplines: PROPERTY INVESTOR Goal: LTG: Patient will display functional cognitive-linguistic skills to demonstrate appropriate communication and safety within daily activities in a functional living environment Dates: Start: 09/24/24 Expected End: 10/25/24 Disciplines: PROPERTY INVESTOR Goal: STG: Patient will demonstrate sustained attention by maintaining focus during a task for 10 minutes with minimal assistance Dates: Start: 09/24/24 Expected End: 10/25/24 Disciplines: PROPERTY INVESTOR Goal: STG: Patient will be appropriately oriented to person, place, time and situation with 90% accuracy with minimal cueing Dates: Start: 09/24/24 Expected End: 10/25/24 Disciplines: PROPERTY INVESTOR Goal: STG: Patient will describe/demonstrate/initiate use of 3 memory strategies with minimal cueing Dates: Start: 09/24/24 Expected End: 10/25/24 Disciplines: PROPERTY INVESTOR Problem: High Level Language Dates: Start: 09/24/24 Disciplines: PROPERTY INVESTOR Goal: LTG: Patient will demonstrate use of self-awareness, goal setting, planning, initiation, self-monitoring and problem solving during daily activities to improve safety and awareness in a functional living environment Dates: Start: 09/24/24 Expected End: 10/25/24 Disciplines: PROPERTY INVESTOR Goal: STG: Patient will demonstrate functional problem solving and safety awareness with 90% accuracy in daily living tasks in order to increase safe interactions with environment and decrease assistance from caregivers Dates: Start: 09/24/24 Expected End: 10/25/24 Disciplines: PROPERTY INVESTOR Problem: Speech Production Dates: Start: 09/24/24 Disciplines: PROPERTY INVESTOR Goal: LTG: Patient will develop functional and intelligible speech and utilize compensatory strategies through the use of adequate labial and lingual function, increased articulatory precision and speech prosody Dates: Start: 09/24/24 Expected End: 10/25/24 Disciplines: PROPERTY INVESTOR Goal: STG: Patient will use appropriate articulatory accuracy and speech rate when reading/speakingwith 90% accuracy with minimal cueing Dates: Start: 09/24/24 Expected End: 10/25/24 Disciplines: PROPERTY INVESTOR Goal: STG: Patient will complete rapid alternating verbal sequences (tongue twisters) with improvedarticulatory precision with 90% accuracy with minimal cueing Dates: Start: 09/24/24 Expected End: 10/25/24 Disciplines: PROPERTY INVESTOR Problem: Verbal Expression Dates: Start: 09/24/24 Disciplines: PROPERTY INVESTOR Goal: LTG: Patient will utilize compensatory strategies to communicate wants and needs effectively to different conversational partners, maintain safety and participate socially in a functional living environment Dates: Start: 09/24/24 Expected End: 10/25/24 Disciplines: PROPERTY INVESTOR Goal: STG: Patient will describe objects, pictures (salient features) with 90% accuracy with minimal cueing to improve word retrieval skills Dates: Start: 09/24/24 Expected End: 10/25/24 Disciplines: PROPERTY INVESTOR Goal: STG: Patient will respond to simple/complex open ended questions during activities of daily living with 90% accuracy with minimal cueing Dates: Start: 09/24/24 Expected End: 10/25/24 Disciplines: PROPERTY INVESTOR Goal: STG: Patient will complete simple to complex divergent and convergent naming tasks with 90% accuracy with minimal cueing to improve thought organization Dates: Start: 09/24/24 Expected End: 10/25/24 Disciplines: PROPERTY INVESTOR Speech Therapy Care Plan (Resolved) There are [...] for today 09/28/24 at 4 PM to [facility]. confirmed in [employer]. * Discharge Planning Note - Samantha Lemon - 09/28/2024 11:25 AM EDT DISCHARGE PLANNING NOTE Prior Auth approved for admission to : [facility] (P#: ; F#: ) Approval # [id number] Valid for Dates: 09/28/2024 - 09/30/2024 * PT/OT/PROPERTY INVESTOR - Laurel Moralez, SOFÍA-PROPERTY INVESTOR - 09/28/2024 11:24 AM EDT Speech Therapy [...] Dysphagia Problem: Swallowing Dates: Start: 09/24/24 Disciplines: PROPERTY INVESTOR Goal: LTG: Patient will tolerate least restrictive diet recommended by PROPERTY INVESTOR without signs and symptoms of aspiration 90% of the time Dates: Start: 09/24/24 Expected End: 10/25/24 Disciplines: PROPERTY INVESTOR Outcomes Date/Time User Outcome 09/28/24 112NATANAEL Lockhart Progressing Goal: STG: Patient will complete safety strategies independently during PO intake 90% of the time Dates: Start: 09/24/24 Expected End: 10/25/24 Disciplines: PROPERTY INVESTOR Outcomes Date/Time User Outcome 09/28/24 NATANAEL Whitfield Progressing Goal: STG: Patient will complete oral/ pharyngeal strengthening program with resistance with 90% accuracy with minimal cueing Dates: Start: 09/24/24 Expected End: 10/25/24 Disciplines: PROPERTY INVESTOR Outcomes Date/Time User Outcome 09/28/24 112 NATANAEL Perea Progressing Goal: STG: Patient will tolerate therapeutic feeding trials of advanced textures with 90% accuracy with minimal cueing Dates: Start: 09/24/24 Expected End: 10/25/24 Disciplines: PROPERTY INVESTOR Outcomes Date/Time User Outcome 09/28/24 1126 MARCELA PereaPROPERTY INVESTOR Progressing Template: ST - Rehab Speech Problem: Auditory Comprehension Dates: Start: 09/24/24 Disciplines: PROPERTY INVESTOR Goal: LTG: Patient will comprehend communication related to basic medical and social needs and utilize compensatory strategies to maintain safety in a functional living environment Dates: Start: 09/24/24 Expected End: 10/25/24 Disciplines: PROPERTY INVESTOR Goal: STG: Patient will answer complex yes/no questions with 90% accuracy with minimal cueing Dates: Start: 09/24/24 Expected End: 10/25/24 Disciplines: PROPERTY INVESTOR Goal: STG: Patient will complete 1-3 step commands with 90% accuracy with minimal cueing Dates: Start: 09/24/24 Expected End: 10/25/24 Disciplines: PROPERTY INVESTOR Goal: STG: Patient will complete simple, phrase level auditory comprehension tasks with 90% accuracy with minimal cueing Dates: Start: 09/24/24 Expected End: 10/25/24 Disciplines: PROPERTY INVESTOR Problem: Cognitive Linguistic Dates: Start: 09/24/24 Disciplines: PROPERTY INVESTOR Goal: LTG: Patient will display functional cognitive-linguistic skills to demonstrate appropriate communication and safety within daily activities in a functional living environment Dates: Start: 09/24/24 Expected End: 10/25/24 Disciplines: PROPERTY INVESTOR Goal: STG: Patient will demonstrate sustained attention by maintaining focus during a task for 10 minutes with minimal assistance Dates: Start: 09/24/24 Expected End: 10/25/24 Disciplines: PROPERTY INVESTOR Goal: STG: Patient will be appropriately oriented to person, place, time and situation with 90% accuracy with minimal cueing Dates: Start: 09/24/24 Expected End: 10/25/24 Disciplines: PROPERTY INVESTOR Goal: STG: Patient will describe/demonstrate/initiate use of 3 memory strategies with minimal cueing Dates: Start: 09/24/24 Expected End: 10/25/24 Disciplines: PROPERTY INVESTOR Problem: High Level Language Dates: Start: 09/24/24 Disciplines: PROPERTY INVESTOR Goal: LTG: Patient will demonstrate use of self-awareness, goal setting, planning, initiation, self-monitoring and problem solving during daily activities to improve safety and awareness in a functional living environment Dates: Start: 09/24/24 Expected End: 10/25/24 Disciplines: PROPERTY INVESTOR Goal: STG: Patient will demonstrate functional problem solving and safety awareness with 90% accuracy in daily living tasks in order to increase safe interactions with environment and decrease assistance from caregivers Dates: Start: 09/24/24 Expected End: 10/25/24 Disciplines: PROPERTY INVESTOR Problem: Speech Production Dates: Start: 09/24/24 Disciplines: PROPERTY INVESTOR Goal: LTG: Patient will develop functional and intelligible speech and utilize compensatory strategies through the use of adequate labial and lingual function, increased articulatory precision and speech prosody Dates: Start: 09/24/24 Expected End: 10/25/24 Disciplines: PROPERTY INVESTOR Goal: STG: Patient will use appropriate articulatory accuracy and speech rate when reading/speakingwith 90% accuracy with minimal cueing Dates: Start: 09/24/24 Expected End: 10/25/24 Disciplines: PROPERTY INVESTOR Goal: STG: Patient will complete rapid alternating verbal sequences (tongue twisters) with improvedarticulatory precision with 90% accuracy with minimal cueing Dates: Start: 09/24/24 Expected End: 10/25/24 Disciplines: PROPERTY INVESTOR Problem: Verbal Expression Dates: Start: 09/24/24 Disciplines: PROPERTY INVESTOR Goal: LTG: Patient will utilize compensatory strategies to communicate wants and needs effectively to different conversational partners, maintain safety and participate socially in a functional living environment Dates: Start: 09/24/24 Expected End: 10/25/24 Disciplines: PROPERTY INVESTOR Goal: STG: Patient will describe objects, pictures (salient features) with 90% accuracy with minimal cueing to improve word retrieval skills Dates: Start: 09/24/24 Expected End: 10/25/24 Disciplines: PROPERTY INVESTOR Goal: STG: Patient will respond to simple/complex open ended questions during activities of daily living with 90% accuracy with minimal cueing Dates: Start: 09/24/24 Expected End: 10/25/24 Disciplines: PROPERTY INVESTOR Goal: STG: Patient will complete simple to complex divergent and convergent naming tasks with 90% accuracy with minimal cueing to improve thought organization Dates: Start: 09/24/24 Expected End: 10/25/24 Disciplines: PROPERTY INVESTOR Speech Therapy Care Plan (Resolved) There are [...] Description: INTERVENTIONS: 1. Encourage patient or legal front office representative to report early pain and ask [...] per policy 9. Teach patient or legal front office representative interventions for comforting Outcome: Progressing Note: [...] at the bedside 7. Instruct patient/ patient front office representative about use of safety devices 8. Include patient/ patient front office representative in decisions related to safety Outcome: [...] hygiene technique. 7. Identify and instruct patient/patient front office representative in use of appropriate isolation precautionsfor identified infection/symptoms. 8. Provide and discuss with patient/patient front office representative on educational MDRO sheet. 9. Encourage and monitor nutritional status daily and consult picc nurse if indicated. 10. Implement neutropenic guidelines as needed. Outcome: Progressing Note: Evaluation of progress towards goal: hand hygiene is preformed when entering and leaving the room. And no new s/s of infection are present. Will continue to monitor Problem: Knowledge Deficit Goal: Patient/patient front office representative demonstrates understanding of disease process, treatment [...] supplement as ordered 13. Collaborate with clinical picc nurse 14. Include patient/ patient's front office representative in decisions related to nutrition Outcome: [...] Score of =/> 25 or indicated by [facility] Assessment Goal: Patient should be free from fall Description: Interventions: 1. [place] to environment 2. Hourly rounds addressing the [...] non-skid footwear 11. Teach patient and patient front office representative to maintain environment for safety and [...] (cane, walker) within reach 19. Request patient front office representative bring adaptive equipment/mobility aids from home or obtain and provide as needed 20. Consult pharmacy regarding effects of med's affecting mobility, cognition, and alternatives 21. Obtain physician order for PT if risk factors associated with mobility are present 22. Obtain physician order for OT as appropriate 23. Utilize diversional activities 24. Educate patient and patient front office representative how to maintain a safe environment during visitationtimes (notify nurse prior to leaving bedside) 25. Consider appropriateness of medical or non-medical records clerk 26. Set up voiding schedule as appropriate [...] discharge at this time, awaiting precert to senior living facility. JACQUELINE Ayala 09/28/24 1016 * Discharge Planning Note - RAMIREZ Cotto - 09/28/2024 9:43 AM EDT DISCHARGE PLANNING NOTE Case discussed in daily transition rounds and chart reviewed by CN. Barriers to discharge include SNF precert Discharge Plan remains: return to [facility] SNF. Waiting insurance approval for SNF stay- precert initiated on 09/26. Family is aware and agreeable to transition plan. CN will continue to follow and is available should any further needs arise. - RAMIREZ COTTO 09/28/24 9:44 AM Insurance approved SNF stay. Discharge written, CRF complete. Social work task [facility] to arrange BLS transport and [facility] ambulance was arranged. [facility] notified of discharge and CRF sent. [...] Description: INTERVENTIONS: 1. Encourage patient or legal front office representative to report early pain and ask [...] per policy 9. Teach patient or legal front office representative interventions for comforting Outcome: Progressing Note: [...] at the bedside 7. Instruct patient/ patient front office representative about use of safety devices 8. Include patient/ patient front office representative in decisions related to safety Outcome: [...] hygiene technique. 7. Identify and instruct patient/patient front office representative in use of appropriate isolation precautionsfor identified infection/symptoms. 8. Provide and discuss with patient/patient front office representative on educational MDRO sheet. 9. Encourage and monitor nutritional status daily and consult picc nurse if indicated. 10. Implement neutropenic guidelines as needed. Outcome: Progressing Note: Evaluation of progress towards goal: Linker Up assessed pt risk for infection in the beginning and throughout shift. Pt remains afebrile. Will continue to monitor. Problem: Knowledge Deficit Goal: Patient/patient front office representative demonstrates understanding of disease process, treatment plan,medications, and discharge instructions Description: INTERVENTIONS 1. Complete learning assessment and assess knowledge base 2. Provide teaching at level of understanding 3. Provide teaching via preferred learning method(s) Outcome: Progressing Note: Evaluation of progress towards goal: Linker Up educated pt on admission disease, medications, [...] supplement as ordered 13. Collaborate with clinical picc nurse 14. Include patient/ patient's front office representative in decisions related to nutrition Outcome: [...] Score of =/> 25 or indicated by [facility] Assessment Goal: Patient should be free from fall Description: Interventions: 1. [place] to environment 2. Hourly rounds addressing the [...] non-skid footwear 11. Teach patient and patient front office representative to maintain environment for safety and [...] (cane, walker) within reach 19. Request patient front office representative bring adaptive equipment/mobility aids from home or obtain and provide as needed 20. Consult pharmacy regarding effects of med's affecting mobility, cognition, and alternatives 21. Obtain physician order for PT if risk factors associated with mobility are present 22. Obtain physician order for OT as appropriate 23. Utilize diversional activities 24. Educate patient and patient front office representative how to maintain a safe environment during visitationtimes (notify nurse prior to leaving bedside) 25. Consider appropriateness of medical or non-medical records clerk 26. Set up voiding schedule as appropriate (every 2 hours) Outcome: Progressing Note: Evaluation of progress towards goal: Linker Up assessed pt fall precautions in the [...] Description: INTERVENTIONS: 1. Encourage patient or legal front office representative to report early pain and ask [...] per policy 9. Teach patient or legal front office representative interventions for comforting Outcome: Progressing Note: [...] at the bedside 7. Instruct patient/ patient front office representative about use of safety devices 8. Include patient/ patient front office representative in decisions related to safety Outcome: [...] hygiene technique. 7. Identify and instruct patient/patient front office representative in use of appropriate isolation precautionsfor identified infection/symptoms. 8. Provide and discuss with patient/patient front office representative on educational MDRO sheet. 9. Encourage and monitor nutritional status daily and consult picc nurse if indicated. 10. Implement neutropenic guidelines as needed. Outcome: Progressing Note: Evaluation of progress towards goal: Patient remains afebrile with absence of typical signs of infection such as redness, swelling, purulent drainage, etc. Labs remain within defined limits. Infection preventative measures maintained. Will continue to monitor patient for any signs or symptomsindicating infection while providing care. Problem: Knowledge Deficit Goal: Patient/patient front office representative demonstrates understanding of disease process, treatment [...] supplement as ordered 13. Collaborate with clinical picc nurse 14. Include patient/ patient's front office representative in decisions related to nutrition Outcome: Progressing Note: Evaluation of progress towards goal: Patient/patient's front office representative is involved in decisions related to [...] be free from fall Description: Interventions: 1. [place] to environment 2. Hourly rounds addressing the [...] non-skid footwear 11. Teach patient and patient front office representative to maintain environment for safety and [...] (cane, walker) within reach 19. Request patient front office representative bring adaptive equipment/mobility aids from home or obtain and provide as needed 20. Consult pharmacy regarding effects of med's affecting mobility, cognition, and alternatives 21. Obtain physician order for PT if risk factors associated with mobility are present 22. Obtain physician order for OT as appropriate 23. Utilize diversional activities 24. Educate patient and patient front office representative how to maintain a safe environment during visitationtimes (notify nurse prior to leaving bedside) 25. Consider appropriateness of medical or non-medical records clerk 26. Set up voiding schedule as appropriate [...] Description: INTERVENTIONS: 1. Encourage patient or legal front office representative to report early pain and ask [...] per policy 9. Teach patient or legal front office representative interventions for comforting Outcome: Progressing Note: [...] at the bedside 7. Instruct patient/ patient front office representative about use of safety devices 8. Include patient/ patient front office representative in decisions related to safety Outcome: Progressing Note: Evaluation of progress towards goal: Patient free from injury; bed to low position; skid freesocks applied; call light in reach Problem: Knowledge Deficit Goal: Patient/patient front office representative demonstrates understanding of disease process, treatment [...] Description: INTERVENTIONS: 1. Encourage patient or legal front office representative to report early pain and ask [...] per policy 9. Teach patient or legal front office representative interventions for comforting Outcome: Progressing Note: [...] at the bedside 7. Instruct patient/ patient front office representative about use of safety devices 8. Include patient/ patient front office representative in decisions related to safety Outcome: [...] hygiene technique. 7. Identify and instruct patient/patient front office representative in use of appropriate isolation precautionsfor identified infection/symptoms. 8. Provide and discuss with patient/patient front office representative on educational MDRO sheet. 9. Encourage and monitor nutritional status daily and consult picc nurse if indicated. 10. Implement neutropenic guidelines as needed. Outcome: Progressing Note: Evaluation of progress towards goal: Patient remains afebrile with absence of typical signs of infection such as redness, swelling, purulent drainage, etc. Labs remain within defined limits. Infection preventative measures maintained. Will continue to monitor patient for any signs or symptomsindicating infection while providing care. \ Problem: Knowledge Deficit Goal: Patient/patient front office representative demonstrates understanding of disease process, treatment [...] supplement as ordered 13. Collaborate with clinical picc nurse 14. Include patient/ patient's front office representative in decisions related to nutrition Outcome: Progressing Note: Evaluation of progress towards goal: Patient/patient's front office representative is involved in decisions related to [...] be free from fall Description: Interventions: 1. [place] to environment 2. Hourly rounds addressing the [...] non-skid footwear 11. Teach patient and patient front office representative to maintain environment for safety and [...] (cane, walker) within reach 19. Request patient front office representative bring adaptive equipment/mobility aids from home or obtain and provide as needed 20. Consult pharmacy regarding effects of med's affecting mobility, cognition, and alternatives 21. Obtain physician order for PT if risk factors associated with mobility are present 22. Obtain physician order for OT as appropriate 23. Utilize diversional activities 24. Educate patient and patient front office representative how to maintain a safe environment during visitationtimes (notify nurse prior to leaving bedside) 25. Consider appropriateness of medical or non-medical records clerk 26. Set up voiding schedule as appropriate [...] auth submitted to: [employer] Via: [employer] On behalf of : [facility] (P#: ; F#: ) Ref# [id number] * Discharge Planning Note - RAMIREZ Cotto - 09/26/2024 9:33 AM EDT DISCHARGE PLANNING NOTE Case discussed in daily transition rounds and chart reviewed by CN. Barriers to discharge include IV Decadron, IV Keppra, D2.5, IV Mag Discharge Plan remains: return to [facility] SNF. PT/OT recommending SNF. Social work sent therapy evaluations to [facility] and they are ready to accept [...] Description: INTERVENTIONS: 1. Encourage patient or legal front office representative to report early pain and ask [...] per policy 9. Teach patient or legal front office representative interventions for comforting Outcome: Progressing Note: [...] at the bedside 7. Instruct patient/ patient front office representative about use of safety devices 8. Include patient/ patient front office representative in decisions related to safety Outcome: Progressing Note: Evaluation of progress towards goal: Patient free from injury; bed to low position; skid freesocks applied; call light in reach Problem: Knowledge Deficit Goal: Patient/patient front office representative demonstrates understanding of disease process, treatment [...] buttock;pt gets turned every 2 hours * PT/OT/PROPERTY INVESTOR - Silvia Vasquez OTR/Verena - 09/25/2024 3:55 [...] admitted 09/18/24 from SNF, initially went to [place] ED for altered mental status, CT shows 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 with Shift,transfer to [facility] overnight-admit to MICU 09/19: Consults [...] Medical History: Diagnosis Date MS (multiple sclerosis) ([facility]) 2012 Past Surgical History: Procedure Laterality Date CARPAL TUNNEL RELEASE Left SHOULDER ARTHROSCOPY W/ ROTATOR CUFF REPAIR Left SYNAPTIVE CRANIOTOMY EXCISION TUMOR Right 09/23/2024 Performed by Jair Espinal MD at [facility] OT Treatment/Interventions: Functional transfer training, ADL retraining, [...] skinny stedy, arterial line, alexis, repositioning sling Telemetry/Sales And Marketing Agent: Yes Oxygen Used: room air Other: high [...] month. Per EMR pt has been at [place] Prior Function Lives With: Son (works 3rd [...] with panic attacks Hyperlipidemia, acquired Multiple sclerosis ([facility]) LORENZO (obstructive sleep apnea) Primary hypertension Depression, unspecified Dysphagia, oropharyngeal phase * PT/OT/PROPERTY INVESTOR - Shelli Grady, PT - 09/25/2024 3:53 [...] admitted 09/18/24 from SNF, initially went to [place] ED for altered mental status, CT shows 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 with Shift,transfer to [facility] overnight- admit to MICU 09/19: Consults to [...] Medical History: Diagnosis Date MS (multiple sclerosis) ([facility]) 2012 Past Surgical History: Procedure Laterality Date CARPAL TUNNEL RELEASE Left SHOULDER ARTHROSCOPY W/ ROTATOR CUFF REPAIR Left SYNAPTIVE CRANIOTOMY EXCISION TUMOR Right 09/23/2024 Performed by Jair Espinal MD at [facility] PT Treatment/Interventions: Functional transfer training, LE strengthening/ROM, [...] gait belt, skinny stedy, arterial line, alexis Telemetry/Sales And Marketing Agent: Yes Oxygen Used: room air Other: high [...] poor historian, asking for pizza and calling production underwriter whit, pt tried to pull out [...] be discharged to: SNF Discharge Disposition SNF [facility] Name [facility] Phone: [facility] SNF Accepted? Yes Does the patient need discharge transportation arranged? Yes Transportation Arranged Ambulance Patient choice offered Yes List Provided Patient declined Patient Declined Active with Provider Case discussed in daily transition rounds and chart reviewed by CN. Barriers to discharge include PT/OT to see, alexis, wounds(skin tears), monitoring neuro status. Discharge Plan remains: [facility]. Tasked RC to send updated clinical notes. Will needPT/OT [...] AM EDT DISCHARGE PLANNING NOTE Updates to [facility] (P#: ; F#: ) * Plan of Care - Elton Morillo RN - 09/25/2024 7:38 AM EDT Problem: Pain Goal: Patient goal is pain score less than 4, able to rest, and participant in treatment plan as appropriate Description: INTERVENTIONS: 1. Encourage patient or legal front office representative to report early pain and ask [...] per policy 9. Teach patient or legal front office representative interventions for comforting Outcome: Progressing Note: [...] at the bedside 7. Instruct patient/ patient front office representative about use of safety devices 8. Include patient/ patient front office representative in decisions related to safety Outcome: [...] hygiene technique. 7. Identify and instruct patient/patient front office representative in use of appropriate isolation precautionsfor identified infection/symptoms. 8. Provide and discuss with patient/patient front office representative on educational MDRO sheet. 9. Encourage and monitor nutritional status daily and consult picc nurse if indicated. 10. Implement neutropenic guidelines as needed. Outcome: Progressing Note: Evaluation of progress towards goal: Patient remains free from signs of infection at this time. Will continue to monitor. Problem: Knowledge Deficit Goal: Patient/patient front office representative demonstrates understanding of disease process, treatment [...] supplement as ordered 13. Collaborate with clinical picc nurse 14. Include patient/ patient's front office representative in decisions related to nutrition Outcome: [...] Score of =/> 25 or indicated by [facility] Assessment Goal: Patient should be free from fall Description: Interventions: 1. [place] to environment 2. Hourly rounds addressing the [...] non-skid footwear 11. Teach patient and patient front office representative to maintain environment for safety and [...] (cane, walker) within reach 19. Request patient front office representative bring adaptive equipment/mobility aids from home or obtain and provide as needed 20. Consult pharmacy regarding effects of med's affecting mobility, cognition, and alternatives 21. Obtain physician order for PT if risk factors associated with mobility are present 22. Obtain physician order for OT as appropriate 23. Utilize diversional activities 24. Educate patient and patient front office representative how to maintain a safe environment during visitationtimes (notify nurse prior to leaving bedside) 25. Consider appropriateness of medical or non-medical records clerk 26. Set up voiding schedule as appropriate [...] Description: INTERVENTIONS: 1. Encourage patient or legal front office representative to report early pain and ask [...] per policy 9. Teach patient or legal front office representative interventions for comforting Outcome: Progressing Note: [...] at the bedside 7. Instruct patient/ patient front office representative about use of safety devices 8. Include patient/ patient front office representative in decisions related to safety Outcome: [...] hygiene technique. 7. Identify and instruct patient/patient front office representative in use of appropriate isolation precautionsfor identified infection/symptoms. 8. Provide and discuss with patient/patient front office representative on educational MDRO sheet. 9. Encourage and monitor nutritional status daily and consult picc nurse if indicated. 10. Implement neutropenic guidelines as needed. Outcome: Progressing Note: Evaluation of progress towards goal: Patient remains free from signs of infection at this time. Will continue to monitor. Problem: Knowledge Deficit Goal: Patient/patient front office representative demonstrates understanding of disease process, treatment [...] Score of =/> 25 or indicated by [facility] Assessment Goal: Patient should be free from fall Description: Interventions: 1. [place] to environment 2. Hourly rounds addressing the [...] non-skid footwear 11. Teach patient and patient front office representative to maintain environment for safety and [...] (cane, walker) within reach 19. Request patient front office representative bring adaptive equipment/mobility aids from home or obtain and provide as needed 20. Consult pharmacy regarding effects of med's affecting mobility, cognition, and alternatives 21. Obtain physician order for PT if risk factors associated with mobility are present 22. Obtain physician order for OT as appropriate 23. Utilize diversional activities 24. Educate patient and patient front office representative how to maintain a safe environment during visitationtimes (notify nurse prior to leaving bedside) 25. Consider appropriateness of medical or non-medical records clerk 26. Set up voiding schedule as appropriate [...] to see. Discharge Plan remains: Return to [facility]-will need precert. CN will continue to follow and is available should any further needs arise. - Manjinder Suresh RN 09/24/24 2:35 PM * PT/OT/PROPERTY INVESTOR - Rosario Orr CCC-PROPERTY INVESTOR - 09/24/2024 1:31 PM EDT Speech Therapy [...] strategies Medications: In applesauce/puree Referrals: Dysphagia therapy, Packaging Mechanic Discharge Recommendations: (ongoing ST services) Pt educated [...] with h/o MS, who initially presented to [facility] 09/18 from her rehab facility with complaints of altered mental status. Per chart review patient was recently treated for rhabdomyolysis. Her initial workup was significant for hyperkalemia with a potassium of 5.5, BRANDON with creatinine of 15.68, BUN 133, bicarb 20 and leukocytosis with WBC 12.7, also a CT head was obtained and demonstrated a 4.1 cm right temporalbrain mass with [id number] 60 mm shift which includes surrounding edema. Pt was transferred to [facility] for neurosurgery consult. 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 Speech consulted post operatively to assess swallow function prior to diet initiation. Prognosis Services: Skilled PROPERTY INVESTOR services to address above deficits Prognosis/Potential: Good [...] Plan Speech Therapy Care Plan (Active) Template: - Dysphagia Problem: Swallowing Dates: Start: 09/24/24 Disciplines: PROPERTY INVESTOR Goal: LTG: Patient will tolerate least restrictive diet recommended by PROPERTY INVESTOR without signs and symptoms of aspiration 90% of the time Dates: Start: 09/24/24 Expected End: 10/25/24 Disciplines: PROPERTY INVESTOR Goal: STG: Patient will complete safety strategies independently during PO intake 90% of the time Dates: Start: 09/24/24 Expected End: 10/25/24 Disciplines: PROPERTY INVESTOR Goal: STG: Patient will complete oral/ pharyngeal strengthening program with resistance with 90% accuracy with minimal cueing Dates: Start: 09/24/24 Expected End: 10/25/24 Disciplines: PROPERTY INVESTOR Goal: STG: Patient will tolerate therapeutic feeding trials of advanced textures with 90% accuracy with minimal cueing Dates: Start: 09/24/24 Expected End: 10/25/24 Disciplines: PROPERTY INVESTOR Template: ST - Rehab Speech Problem: Auditory Comprehension Dates: Start: 09/24/24 Disciplines: PROPERTY INVESTOR Goal: LTG: Patient will comprehend communication related to basic medical and social needs and utilize compensatory strategies to maintain safety in a functional living environment Dates: Start: 09/24/24 Expected End: 10/25/24 Disciplines: PROPERTY INVESTOR Goal: STG: Patient will answer complex yes/no questions with 90% accuracy with minimal cueing Dates: Start: 09/24/24 Expected End: 10/25/24 Disciplines: PROPERTY INVESTOR Goal: STG: Patient will complete 1-3 step commands with 90% accuracy with minimal cueing Dates: Start: 09/24/24 Expected End: 10/25/24 Disciplines: PROPERTY INVESTOR Goal: STG: Patient will complete simple, phrase level auditory comprehension tasks with 90% accuracy with minimal cueing Dates: Start: 09/24/24 Expected End: 10/25/24 Disciplines: PROPERTY INVESTOR Problem: Cognitive Linguistic Dates: Start: 09/24/24 Disciplines: PROPERTY INVESTOR Goal: LTG: Patient will display functional cognitive-linguistic skills to demonstrate appropriate communication and safety within daily activities in a functional living environment Dates: Start: 09/24/24 Expected End: 10/25/24 Disciplines: PROPERTY INVESTOR Goal: STG: Patient will demonstrate sustained attention by maintaining focus during a task for 10 minutes with minimal assistance Dates: Start: 09/24/24 Expected End: 10/25/24 Disciplines: PROPERTY INVESTOR Goal: STG: Patient will be appropriately oriented to person, place, time and situation with 90% accuracy with minimal cueing Dates: Start: 09/24/24 Expected End: 10/25/24 Disciplines: PROPERTY INVESTOR Goal: STG: Patient will describe/demonstrate/initiate use of 3 memory strategies with minimal cueing Dates: Start: 09/24/24 Expected End: 10/25/24 Disciplines: PROPERTY INVESTOR Problem: High Level Language Dates: Start: 09/24/24 Disciplines: PROPERTY INVESTOR Goal: LTG: Patient will demonstrate use of self-awareness, goal setting, planning, initiation, self-monitoring and problem solving during daily activities to improve safety and awareness in a functional living environment Dates: Start: 09/24/24 Expected End: 10/25/24 Disciplines: PROPERTY INVESTOR Goal: STG: Patient will demonstrate functional problem solving and safety awareness with 90% accuracy in daily living tasks in order to increase safe interactions with environment and decrease assistance from caregivers Dates: Start: 09/24/24 Expected End: 10/25/24 Disciplines: PROPERTY INVESTOR Problem: Speech Production Dates: Start: 09/24/24 Disciplines: PROPERTY INVESTOR Goal: LTG: Patient will develop functional and intelligible speech and utilize compensatory strategies through the use of adequate labial and lingual function, increased articulatory precision and speech prosody Dates: Start: 09/24/24 Expected End: 10/25/24 Disciplines: PROPERTY INVESTOR Goal: STG: Patient will use appropriate articulatory accuracy and speech rate when reading/speakingwith 90% accuracy with minimal cueing Dates: Start: 09/24/24 Expected End: 10/25/24 Disciplines: PROPERTY INVESTOR Goal: STG: Patient will complete rapid alternating verbal sequences (tongue twisters) with improvedarticulatory precision with 90% accuracy with minimal cueing Dates: Start: 09/24/24 Expected End: 10/25/24 Disciplines: PROPERTY INVESTOR Problem: Verbal Expression Dates: Start: 09/24/24 Disciplines: PROPERTY INVESTOR Goal: LTG: Patient will utilize compensatory strategies to communicate wants and needs effectively to different conversational partners, maintain safety and participate socially in a functional living environment Dates: Start: 09/24/24 Expected End: 10/25/24 Disciplines: PROPERTY INVESTOR Goal: STG: Patient will describe objects, pictures (salient features) with 90% accuracy with minimal cueing to improve word retrieval skills Dates: Start: 09/24/24 Expected End: 10/25/24 Disciplines: PROPERTY INVESTOR Goal: STG: Patient will respond to simple/complex open ended questions during activities of daily living with 90% accuracy with minimal cueing Dates: Start: 09/24/24 Expected End: 10/25/24 Disciplines: PROPERTY INVESTOR Goal: STG: Patient will complete simple to complex divergent and convergent naming tasks with 90% accuracy with minimal cueing to improve thought organization Dates: Start: 09/24/24 Expected End: 10/25/24 Disciplines: PROPERTY INVESTOR Speech Therapy Care Plan (Resolved) There are no resolved problems. Principal Problem: Altered mental status, unspecified altered mental status type Active Problems: Generalized anxiety disorder with panic attacks Hyperlipidemia, acquired Multiple sclerosis (CMS-HCC) LORENZO (obstructive sleep apnea) Primary hypertension Depression, unspecified Dysphagia, oropharyngeal phase * PT/OT/PROPERTY INVESTOR - NATANAEL Kyle - 09/24/2024 8:35 AM [...] swallow. Please place order. Prognosis Services: Skilled PROPERTY INVESTOR services to address above deficits Prognosis/Potential: Good [...] continue to follow along. Prognosis Services: Skilled PROPERTY INVESTOR services to address the above deficits Prognosis/Potential: [...] Dysphagia Problem: Swallowing Dates: Start: 09/24/24 Disciplines: PROPERTY INVESTOR Goal: LTG: Patient will tolerate least restrictive diet recommended by PROPERTY INVESTOR without signs and symptoms of aspiration 90% of the time Dates: Start: 09/24/24 Expected End: 10/25/24 Disciplines: PROPERTY INVESTOR Goal: STG: Patient will complete safety strategies independently during PO intake 90% of the time Dates: Start: 09/24/24 Expected End: 10/25/24 Disciplines: PROPERTY INVESTOR Goal: STG: Patient will complete oral/ pharyngeal strengthening program with resistance with 90% accuracy with minimal cueing Dates: Start: 09/24/24 Expected End: 10/25/24 Disciplines: PROPERTY INVESTOR Goal: STG: Patient will tolerate therapeutic feeding trials of advanced textures with 90% accuracy with minimal cueing Dates: Start: 09/24/24 Expected End: 10/25/24 Disciplines: PROPERTY INVESTOR Template: ST - Rehab Speech Problem: Auditory Comprehension Dates: Start: 09/24/24 Disciplines: PROPERTY INVESTOR Goal: LTG: Patient will comprehend communication related to basic medical and social needs and utilize compensatory strategies to maintain safety in a functional living environment Dates: Start: 09/24/24 Expected End: 10/25/24 Disciplines: PROPERTY INVESTOR Goal: STG: Patient will answer complex yes/no questions with 90% accuracy with minimal cueing Dates: Start: 09/24/24 Expected End: 10/25/24 Disciplines: PROPERTY INVESTOR Goal: STG: Patient will complete 1-3 step commands with 90% accuracy with minimal cueing Dates: Start: 09/24/24 Expected End: 10/25/24 Disciplines: PROPERTY INVESTOR Goal: STG: Patient will complete simple, phrase level auditory comprehension tasks with 90% accuracy with minimal cueing Dates: Start: 09/24/24 Expected End: 10/25/24 Disciplines: PROPERTY INVESTOR Problem: Cognitive Linguistic Dates: Start: 09/24/24 Disciplines: PROPERTY INVESTOR Goal: LTG: Patient will display functional cognitive-linguistic skills to demonstrate appropriate communication and safety within daily activities in a functional living environment Dates: Start: 09/24/24 Expected End: 10/25/24 Disciplines: PROPERTY INVESTOR Goal: STG: Patient will demonstrate sustained attention by maintaining focus during a task for 10 minutes with minimal assistance Dates: Start: 09/24/24 Expected End: 10/25/24 Disciplines: PROPERTY INVESTOR Goal: STG: Patient will be appropriately oriented to person, place, time and situation with 90% accuracy with minimal cueing Dates: Start: 09/24/24 Expected End: 10/25/24 Disciplines: PROPERTY INVESTOR Goal: STG: Patient will describe/demonstrate/initiate use of 3 memory strategies with minimal cueing Dates: Start: 09/24/24 Expected End: 10/25/24 Disciplines: PROPERTY INVESTOR Problem: High Level Language Dates: Start: 09/24/24 Disciplines: PROPERTY INVESTOR Goal: LTG: Patient will demonstrate use of self-awareness, goal setting, planning, initiation, self-monitoring and problem solving during daily activities to improve safety and awareness in a functional living environment Dates: Start: 09/24/24 Expected End: 10/25/24 Disciplines: PROPERTY INVESTOR Goal: STG: Patient will demonstrate functional problem solving and safety awareness with 90% accuracy in daily living tasks in order to increase safe interactions with environment and decrease assistance from caregivers Dates: Start: 09/24/24 Expected End: 10/25/24 Disciplines: PROPERTY INVESTOR Problem: Speech Production Dates: Start: 09/24/24 Disciplines: PROPERTY INVESTOR Goal: LTG: Patient will develop functional and intelligible speech and utilize compensatory strategies through the use of adequate labial and lingual function, increased articulatory precision and speech prosody Dates: Start: 09/24/24 Expected End: 10/25/24 Disciplines: PROPERTY INVESTOR Goal: STG: Patient will use appropriate articulatory accuracy and speech rate when reading/speakingwith 90% accuracy with minimal cueing Dates: Start: 09/24/24 Expected End: 10/25/24 Disciplines: PROPERTY INVESTOR Goal: STG: Patient will complete rapid alternating verbal sequences (tongue twisters) with improvedarticulatory precision with 90% accuracy with minimal cueing Dates: Start: 09/24/24 Expected End: 10/25/24 Disciplines: PROPERTY INVESTOR Problem: Verbal Expression Dates: Start: 09/24/24 Disciplines: PROPERTY INVESTOR Goal: LTG: Patient will utilize compensatory strategies to communicate wants and needs effectively to different conversational partners, maintain safety and participate socially in a functional living environment Dates: Start: 09/24/24 Expected End: 10/25/24 Disciplines: PROPERTY INVESTOR Goal: STG: Patient will describe objects, pictures (salient features) with 90% accuracy with minimal cueing to improve word retrieval skills Dates: Start: 09/24/24 Expected End: 10/25/24 Disciplines: PROPERTY INVESTOR Goal: STG: Patient will respond to simple/complex open ended questions during activities of daily living with 90% accuracy with minimal cueing Dates: Start: 09/24/24 Expected End: 10/25/24 Disciplines: PROPERTY INVESTOR Goal: STG: Patient will complete simple to complex divergent and convergent naming tasks with 90% accuracy with minimal cueing to improve thought organization Dates: Start: 09/24/24 Expected End: 10/25/24 Disciplines: PROPERTY INVESTOR Speech Therapy Care Plan (Resolved) There are [...] injury from restraints (Restraint for Interference with Assistant Head Cashier) Description: INTERVENTIONS: 1. Determine that other, less [...] Free from restraint(s) (Restraint for Interference with Assistant Head Cashier) Description: INTERVENTIONS: 1. ONCE/SHIFT or MINIMUM Q12H: [...] Description: INTERVENTIONS: 1. Encourage patient or legal front office representative to report early pain and ask [...] per policy 9. Teach patient or legal front office representative interventions for comforting Outcome: Progressing Note: [...] at the bedside 7. Instruct patient/ patient front office representative about use of safety devices 8. Include patient/ patient front office representative in decisions related to safety Outcome: [...] hygiene technique. 7. Identify and instruct patient/patient front office representative in use of appropriate isolation precautionsfor identified infection/symptoms. 8. Provide and discuss with patient/patient front office representative on educational MDRO sheet. 9. Encourage and monitor nutritional status daily and consult picc nurse if indicated. 10. Implement neutropenic guidelines as needed. Outcome: Progressing Note: Evaluation of progress towards goal: Labs and vitals monitored as ordered. Medications administered as ordered. Patient remains free from infection at this time. Problem: Knowledge Deficit Goal: Patient/patient front office representative demonstrates understanding of disease process, treatment [...] supplement as ordered 13. Collaborate with clinical picc nurse 14. Include patient/ patient's front office representative in decisions related to nutrition Outcome: [...] Score of =/> 25 or indicated by [facility] Assessment Goal: Patient should be free from fall Description: Interventions: 1. [place] to environment 2. Hourly rounds addressing the [...] non-skid footwear 11. Teach patient and patient front office representative to maintain environment for safety and [...] (cane, walker) within reach 19. Request patient front office representative bring adaptive equipment/mobility aids from home or obtain and provide as needed 20. Consult pharmacy regarding effects of med's affecting mobility, cognition, and alternatives 21. Obtain physician order for PT if risk factors associated with mobility are present 22. Obtain physician order for OT as appropriate 23. Utilize diversional activities 24. Educate patient and patient front office representative how to maintain a safe environment during visitationtimes (notify nurse prior to leaving bedside) 25. Consider appropriateness of medical or non-medical records clerk 26. Set up voiding schedule as appropriate [...] injury from restraints (Restraint for Interference with Assistant Head Cashier) Description: INTERVENTIONS: 1. Determine that other, less [...] Free from restraint(s) (Restraint for Interference with Assistant Head Cashier) Description: INTERVENTIONS: 1. ONCE/SHIFT or MINIMUM Q12H: [...] fastened to the bed with Rivera head swamper. Her cranial anatomy was registered to the [employer] software with good accuracy. Stealth probe was [...] Espinal MD - Primary Assistants: None Staff: Mat Roller Primary: Javier Argueta RN Mat Roller Relief: Julia Lofton RN; Sherrie Leiva RN [...] Implant Name Type Inv. Item Serial No. Qa Lead Lot No. LRB No. Used Action PATCH DURA 3X3IN THK3.5MM CRNMXF DRMTRX-ONLAY + NPOR RGNRT RPL [id number] - [id number] Graft PATCH DURA 3X3IN THK3.5MM CRNMXF DRMTRX-ONLAY + NPOR RGNRT RPL [id number] [employer]IM [employer] [id number] Right 1 Implanted PLATE BN 12MM 2 HL LP BAR TAB UNV NEURO II CRNMXF TI NS 1.5 - [id number] Plate PLATE BN 12MM 2 HL LP BAR TAB UNV NEURO II CRNMXF TI NS 1.5 [employer]IM [employer] Right 2 Implanted COVER BUR HL CRNFCL 10MMX.5MM LP TAB STRL LF DISP - [id number] Plate COVER BUR HL CRNFCL 10MMX.5MM LP TAB STRL LF DISP JIM [employer] Right 1 Implanted SCREW BN 4MM 1.5MM SLF DRL XPN CRNMXF STRL MUST ORDER IN MULTIPLES OF 5EA - [id number] Screw SCREW BN 4MM 1.5MM SLF DRL [...] surgery. * Query Response - Anjelica Venegas APRN-MEDICAL SECRETARY - 09/23/2024 10:02 AM EDT Query Response [...] Free from restraint(s) (Restraint for Interference with Assistant Head Cashier) Description: INTERVENTIONS: 1. ONCE/SHIFT or MINIMUM Q12H: [...] Description: INTERVENTIONS: 1. Encourage patient or legal front office representative to report early pain and ask [...] per policy 9. Teach patient or legal front office representative interventions for comforting Outcome: Progressing Note: [...] at the bedside 7. Instruct patient/ patient front office representative about use of safety devices 8. Include patient/ patient front office representative in decisions related to safety Outcome: [...] hygiene technique. 7. Identify and instruct patient/patient front office representative in use of appropriate isolation precautionsfor identified infection/symptoms. 8. Provide and discuss with patient/patient front office representative on educational MDRO sheet. 9. Encourage and monitor nutritional status daily and consult picc nurse if indicated. 10. Implement neutropenic guidelines as needed. Outcome: Progressing Note: Evaluation of progress towards goal: Handwashing and standard precautions maintained. Patientremains free from infection through shift and has not shown any additional signs of infection at this time. Will continue to educate on infection prevention. Problem: Knowledge Deficit Goal: Patient/patient front office representative demonstrates understanding of disease process, treatment [...] supplement as ordered 13. Collaborate with clinical picc nurse 14. Include patient/ patient's front office representative in decisions related to nutrition Outcome: [...] be free from fall Description: Interventions: 1. [place] to environment 2. Hourly rounds addressing the [...] non-skid footwear 11. Teach patient and patient front office representative to maintain environment for safety and [...] (cane, walker) within reach 19. Request patient front office representative bring adaptive equipment/mobility aids from home or obtain and provide as needed 20. Consult pharmacy regarding effects of med's affecting mobility, cognition, and alternatives 21. Obtain physician order for PT if risk factors associated with mobility are present 22. Obtain physician order for OT as appropriate 23. Utilize diversional activities 24. Educate patient and patient front office representative how to maintain a safe environment during visitationtimes (notify nurse prior to leaving bedside) 25. Consider appropriateness of medical or non-medical records clerk 26. Set up voiding schedule as appropriate [...] injury from restraints (Restraint for Interference with Assistant Head Cashier) Description: INTERVENTIONS: 1. Determine that other, less [...] 09/23, alexis Discharge Plan remains: return to [facility]. [facility] [...] Description: INTERVENTIONS: 1. Encourage patient or legal front office representative to report early pain and ask [...] per policy 9. Teach patient or legal front office representative interventions for comforting Outcome: Progressing Note: Evaluation of progress towards goal: Linker Up assessed pt pain in the beginning and throughout shift. Pt stated a tolerable pain goal was zero. Linker Up medicated pt pain per order. Will [...] at the bedside 7. Instruct patient/ patient front office representative about use of safety devices 8. Include patient/ patient front office representative in decisions related to safety Outcome: [...] hygiene technique. 7. Identify and instruct patient/patient front office representative in use of appropriate isolation precautionsfor identified infection/symptoms. 8. Provide and discuss with patient/patient front office representative on educational MDRO sheet. 9. Encourage and monitor nutritional status daily and consult picc nurse if indicated. 10. Implement neutropenic guidelines as needed. Outcome: Progressing Note: Evaluation of progress towards goal: Linker Up assessed pt risk for infection in the beginning and throughout shift. Pt remains afebrile. Will continue to monitor. Problem: Knowledge Deficit Goal: Patient/patient front office representative demonstrates understanding of disease process, treatment plan,medications, and discharge instructions Description: INTERVENTIONS 1. Complete learning assessment and assess knowledge base 2. Provide teaching at level of understanding 3. Provide teaching via preferred learning method(s) Outcome: Progressing Note: Evaluation of progress towards goal: Linker Up educated pt on admission disease, medications, [...] towards goal: Patient's skin integrity is maintained, production underwriter assessed at beginning of shift and [...] supplement as ordered 13. Collaborate with clinical picc nurse 14. Include patient/ patient's front office representative in decisions related to nutrition Outcome: [...] goal: Patient's perineal skin integrity is maintained, production underwriter assessed at beginning of shift and throughout, no changes noted, alexis cathter in place, fallon care provided. Problem: Moderate - High Risk Fall Score Description: [place] Fall Score of =/> 25 or indicated by [facility] Assessment Goal: Patient should be free from fall Description: Interventions: 1. [place] to environment 2. Hourly rounds addressing the [...] non-skid footwear 11. Teach patient and patient front office representative to maintain environment for safety and [...] (cane, walker) within reach 19. Request patient front office representative bring adaptive equipment/mobility aids from home or obtain and provide as needed 20. Consult pharmacy regarding effects of med's affecting mobility, cognition, and alternatives 21. Obtain physician order for PT if risk factors associated with mobility are present 22. Obtain physician order for OT as appropriate 23. Utilize diversional activities 24. Educate patient and patient front office representative how to maintain a safe environment during visitationtimes (notify nurse prior to leaving bedside) 25. Consider appropriateness of medical or non-medical records clerk 26. Set up voiding schedule as appropriate (every 2 hours) Outcome: Progressing Note: Evaluation of progress towards goal: Linker Up assessed pt fall precautions in the [...] injury from restraints (Restraint for Interference with Assistant Head Cashier) Description: INTERVENTIONS: 1. Determine that other, less [...] injury from restrains, restrains remain in place, production underwriter checks pulses, range of motion, offers hygiene, nutrition and repositioning every two hours. Goal: Free from restraint(s) (Restraint for Interference with Assistant Head Cashier) Description: INTERVENTIONS: 1. ONCE/SHIFT or MINIMUM Q12H: [...] time, order remains vaild for current shift, production underwriter performs necessary checks, plan of care ongoing. * Plan of Care - Reanna Ferguson RN - 09/22/2024 2:44 AM EDT Problem: Pain Goal: Patient goal is pain score less than 4, able to rest, and participant in treatment plan as appropriate Description: INTERVENTIONS: 1. Encourage patient or legal front office representative to report early pain and ask [...] per policy 9. Teach patient or legal front office representative interventions for comforting Outcome: Progressing Note: [...] at the bedside 7. Instruct patient/ patient front office representative about use of safety devices 8. Include patient/ patient front office representative in decisions related to safety Outcome: [...] hygiene technique. 7. Identify and instruct patient/patient front office representative in use of appropriate isolation precautionsfor identified infection/symptoms. 8. Provide and discuss with patient/patient front office representative on educational MDRO sheet. 9. Encourage and monitor nutritional status daily and consult picc nurse if indicated. 10. Implement neutropenic guidelines as needed. Outcome: Progressing Note: Evaluation of progress towards goal: Handwashing and standard precautions maintained. Patientremains free from infection through shift and has not shown any additional signs of infection at this time. Will continue to educate on infection prevention. Problem: Knowledge Deficit Goal: Patient/patient front office representative demonstrates understanding of disease process, treatment [...] supplement as ordered 13. Collaborate with clinical picc nurse 14. Include patient/ patient's front office representative in decisions related to nutrition Outcome: [...] be free from fall Description: Interventions: 1. [place] to environment 2. Hourly rounds addressing the [...] non-skid footwear 11. Teach patient and patient front office representative to maintain environment for safety and [...] (cane, walker) within reach 19. Request patient front office representative bring adaptive equipment/mobility aids from home or obtain and provide as needed 20. Consult pharmacy regarding effects of med's affecting mobility, cognition, and alternatives 21. Obtain physician order for PT if risk factors associated with mobility are present 22. Obtain physician order for OT as appropriate 23. Utilize diversional activities 24. Educate patient and patient front office representative how to maintain a safe environment during visitationtimes (notify nurse prior to leaving bedside) 25. Consider appropriateness of medical or non-medical records clerk 26. Set up voiding schedule as appropriate [...] injury from restraints (Restraint for Interference with Assistant Head Cashier) Description: INTERVENTIONS: 1. Determine that other, less [...] EDT DISCHARGE PLANNING NOTE Referral sent to. [facility] (P#: ; F#: ) * Discharge Planning Note - RAMIREZ Cotto - 09/21/2024 3:15 PM EDT Images from the original note were not included. DISCHARGE PLANNING NOTE Linker Up left messages for children, introduced self, [...] Medical History: Diagnosis Date MS (multiple sclerosis) ([facility]) 2012 Prior to admission patient was a skilled patient at [facility] and family is interested in patient returning at discharge. Social work task RC to send referral to [facility]. Patient will require precert for placement. PCP: JACQUELINE LUNA Pharmacy:[facility] [place] PCP and pharmacy confirmed with patient. JACQUELINE [...] Description: INTERVENTIONS: 1. Encourage patient or legal front office representative to report early pain and ask [...] per policy 9. Teach patient or legal front office representative interventions for comforting Outcome: Progressing Note: [...] hygiene technique. 7. Identify and instruct patient/patient front office representative in use of appropriate isolation precautionsfor identified infection/symptoms. 8. Provide and discuss with patient/patient front office representative on educational MDRO sheet. 9. Encourage and monitor nutritional status daily and consult picc nurse if indicated. 10. Implement neutropenic guidelines as [...] injury from restraints (Restraint for Interference with Assistant Head Cashier) Description: INTERVENTIONS: 1. Determine that other, less [...] AM EDT Problem: Knowledge Deficit Goal: Patient/patient front office representative demonstrates understanding of disease process, treatment [...] Free from restraint(s) (Restraint for Interference with Assistant Head Cashier) Description: INTERVENTIONS: 1. ONCE/SHIFT or MINIMUM Q12H: [...] Description: INTERVENTIONS: 1. Encourage patient or legal front office representative to report early pain and ask [...] per policy 9. Teach patient or legal front office representative interventions for comforting Outcome: Progressing Note: [...] at the bedside 7. Instruct patient/ patient front office representative about use of safety devices 8. Include patient/ patient front office representative in decisions related to safety Outcome: [...] hygiene technique. 7. Identify and instruct patient/patient front office representative in use of appropriate isolation precautionsfor identified infection/symptoms. 8. Provide and discuss with patient/patient front office representative on educational MDRO sheet. 9. Encourage and monitor nutritional status daily and consult picc nurse if indicated. 10. Implement neutropenic guidelines as [...] injury from restraints (Restraint for Interference with Assistant Head Cashier) Description: INTERVENTIONS: 1. Determine that other, less [...] ROM performed * Plan of Care - Steffanie Lozano APRN-MEDICAL SECRETARY - 09/20/2024 10:39 AM EDT Orders have [...] Description: INTERVENTIONS: 1. Encourage patient or legal front office representative to report early pain and ask [...] per policy 9. Teach patient or legal front office representative interventions for comforting Outcome: Progressing Note: [...] hygiene technique. 7. Identify and instruct patient/patient front office representative in use of appropriate isolation precautionsfor identified infection/symptoms. 8. Provide and discuss with patient/patient front office representative on educational MDRO sheet. 9. Encourage and monitor nutritional status daily and consult picc nurse if indicated. 10. Implement neutropenic guidelines as needed. Outcome: Progressing Note: Evaluation of progress towards goal: Pt afebrile, vss, will continue to monitor. Problem: Knowledge Deficit Goal: Patient/patient front office representative demonstrates understanding of disease process, treatment [...] injury from restraints (Restraint for Interference with Assistant Head Cashier) Description: INTERVENTIONS: 1. Determine that other, less [...] AM EDT Problem: Knowledge Deficit Goal: Patient/patient front office representative demonstrates understanding of disease process, treatment [...] injury from restraints (Restraint for Interference with Assistant Head Cashier) Description: INTERVENTIONS: 1. Determine that other, less [...] Free from restraint(s) (Restraint for Interference with Assistant Head Cashier) Description: INTERVENTIONS: 1. ONCE/SHIFT or MINIMUM Q12H: [...] Description: INTERVENTIONS: 1. Encourage patient or legal front office representative to report early pain and ask [...] per policy 9. Teach patient or legal front office representative interventions for comforting Outcome: Progressing Note: [...] at the bedside 7. Instruct patient/ patient front office representative about use of safety devices 8. Include patient/ patient front office representative in decisions related to safety Outcome: [...] hygiene technique. 7. Identify and instruct patient/patient front office representative in use of appropriate isolation precautionsfor identified infection/symptoms. 8. Provide and discuss with patient/patient front office representative on educational MDRO sheet. 9. Encourage and monitor nutritional status daily and consult picc nurse if indicated. 10. Implement neutropenic guidelines as [...] try again later. Enid Eaton Jr., MFrida. [facility] [phone] * Plan of Care - Asim Hinojosa RN - 09/19/2024 7:41 AM EDT Problem: Pain Goal: Patient goal is pain score less than 4, able to rest, and participant in treatment plan as appropriate Description: INTERVENTIONS: 1. Encourage patient or legal front office representative to report early pain and ask [...] per policy 9. Teach patient or legal front office representative interventions for comforting 09/19/[id number] by MOE [...] at the bedside 7. Instruct patient/ patient front office representative about use of safety devices 8. Include patient/ patient front office representative in decisions related to safety 09/19/2024740 [...] hygiene technique. 7. Identify and instruct patient/patient front office representative in use of appropriate isolation precautionsfor identified infection/symptoms. 8. Provide and discuss with patient/patient front office representative on educational MDRO sheet. 9. Encourage and monitor nutritional status daily and consult picc nurse if indicated. 10. Implement neutropenic guidelines as needed. 09/19/2024740 by MOE Dailey Outcome: Progressing Note: Evaluation of progress towards goal: No active infections 09/19/2024738 by MOE Dailey Outcome: Progressing Note: Evaluation of progress towards goal: No active infections Problem: Knowledge Deficit Goal: Patient/patient front office representative demonstrates understanding of disease process, treatment [...] supplement as ordered 13. Collaborate with clinical picc nurse 14. Include patient/ patient's front office representative in decisions related to nutrition 09/19/2024740 [...] Score of =/> 25 or indicated by [facility] Assessment Goal: Patient should be free from fall Description: Interventions: 1. [place] to environment 2. Hourly rounds addressing the [...] non-skid footwear 11. Teach patient and patient front office representative to maintain environment for safety and [...] (cane, walker) within reach 19. Request patient front office representative bring adaptive equipment/mobility aids from home or obtain and provide as needed 20. Consult pharmacy regarding effects of med's affecting mobility, cognition, and alternatives 21. Obtain physician order for PT if risk factors associated with mobility are present 22. Obtain physician order for OT as appropriate 23. Utilize diversional activities 24. Educate patient and patient front office representative how to maintain a safe environment during visitationtimes (notify nurse prior to leaving bedside) 25. Consider appropriateness of medical or non-medical records clerk 26. Set up voiding schedule as appropriate [...] AM EDT Problem: Knowledge Deficit Goal: Patient/patient front office representative demonstrates understanding of disease process, treatment [...] Description: INTERVENTIONS: 1. Encourage patient or legal front office representative to report early pain and ask [...] per policy 9. Teach patient or legal front office representative interventions for comforting Outcome: Progressing Note: [...] at the bedside 7. Instruct patient/ patient front office representative about use of safety devices 8. Include patient/ patient front office representative in decisions related to safety Outcome: [...] hygiene technique. 7. Identify and instruct patient/patient front office representative in use of appropriate isolation precautionsfor identified infection/symptoms. 8. Provide and discuss with patient/patient front office representative on educational MDRO sheet. 9. Encourage and monitor nutritional status daily and consult picc nurse if indicated. 10. Implement neutropenic guidelines as needed. Outcome: Progressing Note: Evaluation of progress towards goal: pt will show no signs or symptoms of infection prior to discharge. Any unneccessary invasive lines and tubes will be removed if not medically necessary to decrease infection risk. [facility] Hospital course Narrative* Julio Fernandez MD - 09/28/2024 5:25 PM EDT Images from the original note were not included. [facility] INTERNAL MEDIC[facility] - GEN 9 ACUTE [address] [facility] [id number] Hospital Medicine Discharge Summary Patient: Anupama Vasquez Date of : 1970 Room: A938/ Encounter date: 09/28/24 Hospital Day: 11 DATE OF ADMISSION: 09/18/2024 DATE OF DISCHARGE:09/28/2024 DISCHARGE DIAGNOSES Principal Problem: Altered mental status, unspecified altered mental status type Active Problems: Generalized anxiety disorder with panic attacks Hyperlipidemia, acquired Multiple sclerosis (CMS-HCC) LORENZO (obstructive sleep apnea) Primary hypertension Depression, unspecified Dysphagia, oropharyngeal phase [facility] Urology Neurosurgery Nephrology PCP: FRED GRACIA, TILE FITTER-MEDICAL SECRETARY PROCEDURES Craniotomy HOSPITAL COURSE SUMMARY Patient's past medical history significant for MS, initially presented to [facility] from her rehab facility with complaints of altered mental status. Recently treated for rhabdomyolysis. 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 She was transferred to [facility] under Neurosurgery to the ICU. Right [...] EKG completed Echocardiogram showing preserved LVEF with kfkc-ws-croqdxtj mitral stenosis Buttock wound Previously following with [...] Andrey Shannon MD on 09/28/2024 3:00 PM Annalisa [...] Brain CT from September 18 outside facility [place] PROCEDURE: Multiplanar multisequence images performed through the [...] for surgical planning. I favor a primary GUEST ADVISOR neoplasm such as a glioblastoma or astrocytoma. [...] on 09/19/2024 6:46 AM DISCHARGE INSTRUCTION Disposition: longterm facility Condition: Stable Activity: activity as tolerated Diet: Adult diet Level 5 Minced and Moist diet; Level 2 Mildly Thick; No straws Adult nutrition supplements Follow up: FRED GRACIA, ELAN-MEDICAL SECRETARY within 7-14 days. Neurosurgery, Urology Labs/Imaging/Pathology: Discharge [...] this patient. JACQUELINE AYALA 09/28/2024 5:25 PM [facility] Internal Medicine 7AM-7PM & 7PM-7AM: EpicChat or page through On-Call Finder. JACQUELINE Ayala 09/28/24 2978 Attending Addendum: I Dr Julio Fernandez, personally [...] the plan as noted. documented in [facility] History of Present illness Narrative* Skye Lara MD - 09/27/2024 4:31 PM EDT Images from the original note were not included. [facility] - [facility] 9 ACUTE [address] [facility] [address] [facility] Medicine Progress Note Patient: Anupama Vasquez Date of : 1970 Room: [facility] PCP: FRED GRACIA APRN-MEDICAL SECRETARY Admission date: 09/18/2024 11:59 PM Encounter date: [...] EKG completed Echocardiogram showing preserved LVEF with qavv-go-ofetbjup mitral stenosis Maintain cardiac monitoring Buttock wound [...] Neurosurgery Skye Lara MD 09/27/2024 4:31 PM [facility] Internal Medicine 7AM-7PM & 7PM-7AM: [...] Thank you, Arabella Burt RN Rapid Response: [facility] * Rivera Valverde RN - 09/26/2024 [...] Thank you, Russel Valverde RN Rapid Response: [facility] * Skye Lara MD - 09/26/2024 5:01 PM EDT Images from the original note were not included. [facility] - GEN [address] ACUTE [address] [facility] [address] Hospital Medicine Progress Note Patient: Anupama Vasquez Date of : 1970 Room: [place] [address] PCP: FRED GRACIA APRN-MEDICAL SECRETARY Admission date: 09/18/2024 11:59 PM Encounter date: [...] with panic attacks Hyperlipidemia, acquired Multiple sclerosis ([facility]-HCC) LORENZO (obstructive sleep apnea) Primary hypertension [...] EKG completed Echocardiogram showing preserved LVEF with uouz-vr-ninnknzv mitral stenosis Maintain cardiac monitoring Buttock wound [...] Neurosurgery Skye Lara MD 09/26/2024 5:01 PM [facility] Internal Medicine 7AM-7PM & 7PM-7AM: EpicChat or page through On-Call Finder. * Laura Gore, ELAN-MEDICAL SECRETARY - 09/26/2024 2:28 PM EDT Images from the original note were not included. [facility] [address] [place] [address], [address] [place] [address] * NEUROSURGERY DAILY PROGRESS NOTE DATE:09/26/2024 PATIENT'S [...] with questions or concerns. JACQUELINE Chun Neurosurgery [facility] Patient Touch 09/26/24 2:31 PM To find out which DIANE is on for the day please go to ON-Call Finder in [employer] or [employer] and use log in Verid and search for PTH Neurosurgery JACQUELINE Roth 09/26/24 3090 * Arabella Burt RN - 09/26/2024 10:30 [...] Thank you, Arabella Burt RN Rapid Response: [facility] * DEISY Leroy - 09/25/2024 11:48 AM EDT NUTRITION ADULT FOLLOW UP NUTRITION ASSESSMENT: Patient History: Brief Clinical Summary: Labs:past medical history significant for MS, who [facility] of [facility]. [...] 22 08/29/2024 Lab Results Component Value Date [id number] 517 09/19/2024 Lab Results Component Value Date [...] mg 4 mg intravenous Q6H [facility] JACQUELINE Vazquez 4 mg at09/25/24 0535 dextrose [...] oral Nightly Jair Espinal MD 15mg at 09/24/24 2204 niCARdipine (CARDENE) infusion 25 [...] 20-60 mEq oral PRN Steffanie E Walker, TILE FITTER-MEDICAL SECRETARY Or potassium chloride IVPB 10 mEq/100 mL in water (0.1 mEq/mL premix) 10 mEq intravenous PRN Steffanie Lozano APRN-RUBINA sennosides-docusate sodium (SENOKOT-S) 8.6-50 mg 2 tablet 2 tablet oral Nightly Jair Espinal MD2 tablet at 09/24/244 sodium phosphate 20 mmol in sodium chloride 0.9 % 250 mL IVPB 20 mmol intravenous PRN Steffanie Lozano APRN-MEDICAL SECRETARY Or sodium phosphate 20 mmol in sodium chloride 0.9 % 100 mL IVPB 20 mmol intravenous PRN Steffanie Lozano APRN-MEDICAL SECRETARY Or sod phos di, mono-K phos mono (K-PHOS NEUTRAL) 250 mg tablet 2 tablet 2 tablet oral PRN Steffanie Lozano APRN-RUBINA sodium chloride 0.9 % infusion 3 mL/hr intra-arterial Continuous Jair Espinal MD 3 mL/hr at 09/25/24 07 3 mL/hr at 09/25/24 0705 Nutrition Focused Physical Findings one stool today 1770ml UO yesterday Skin (per nursing flow sheets): Skin Color: [place] (09/25/24 08) Skin Temp: Warm; Dry (09/25/24 [...] Flatus: Yes (09/25/24799) RUQ Bowel Sounds: Present (09/25/24 08) LUQ Bowel Sounds: Present (09/25/24799) RLQ Bowel Sounds: Present (09/25/24799) LLQ Bowel Sounds: Present (09/25/24799) GI Symptoms: None (09/25/24799) Edema (per nursing flow sheets): RLE Edema: +2 (09/25/24 0800) LLE Edema: +2 (09/25/24 0800) Intake/ Output Last 24 hrs: Intake/Output Summary [...] oz) Admit Weight: 119.4kg (Bed Scale, 09/19/24) [place] Body Weight: 61.4kg Weight Changes: 8.5kg loss/3 months (7%), stable inpatient +/- 2kg Current Body Mass Index: Body mass index is 41.7 kg/m . Comparative Standards: Estimated Energy Needs: 3716-0703 kcals daily. Method and weight used: 28-32 kcal/kg IBW Estimated Protein Needs: 74-123 grams daily. Method and weight used: 1.2-2g protein/kg IBW Estimated Fluid Needs: 5598-7872 ml daily. Method weight used: 28-32 ml/kg [...] Nikki Saez R.D,LNuha Clinical dietitian Patient Touch extension:[phone] Direct Dial phone number: [phone] 09/25/24 12:04 PM * Skye Lara MD - 09/25/2024 11:06 AM EDT Images from the original note were not included. [facility] 8 ICU [address] [facility] [address] Hospital Medicine Progress Note Patient: Anupama Vasquez Date of : 1970 Room: [place] [address] PCP: JACQUELINE LUNA Admission date: 09/18/2024 11:59 [...] EKG completed Echocardiogram showing preserved LVEF with udju-qe-xuzlapxs mitral stenosis Maintain cardiac monitoring Buttock wound [...] Neurosurgery JACQUELINE Hamilton 09/25/2024 11:06 AM [facility] [...] from the original note were not included. [facility] [address] [place] [address], [address] [place] [address] * NEUROSURGERY DAILY PROGRESS NOTE DATE:09/25/2024 PATIENT'S [...] Right temporal glioma s/p resection PLAN - PROPERTY INVESTOR evaluated yesterday. VSS today. - Continue serial [...] Edward- [facility] Please contact via [employer] first then can utilize Patient touch/VoceraEdge if needed 09/25/24 7:08 AM To find out which DIANE is on for the day please go to [facility] [employer] and use log in Verid and search for [facility] Neurosurgery (DIANE and Phone Number is [...] This note was completed using a voice glass cleaning machine tender system. Every effort was made to ensure accuracy. However, inadvertent computerized glass cleaning machine tender errors may be present. * Skye Lara MD - 09/24/2024 10:11 AM EDT Images from the original note were not included. [facility] - GEN 8 ICU [address] [facility] [address] Hospital Medicine Progress Note Patient: Anupama Vasquez Date of : 1970 Room: [place] [address] PCP: FRED GRACIA APRN-RUBINA Admission date: 09/18/2024 [...] panic attacks Hyperlipidemia, acquired Multiple sclerosis (CMS-HCC) LROENZO (obstructive sleep apnea) Primary hypertension Depression, unspecified [...] EKG completed Echocardiogram showing preserved LVEF with mjbb-ws-wqxidizt mitral stenosis Maintain cardiac monitoring Buttock wound [...] ICU per Neurosurgery for further frequent neurochecks Anjelica Venegas, ELAN-MEDICAL SECRETARY 09/24/2024 10:11 AM [facility] 7AM-7PM & 7PM-7AM: EpicChat or page through On-Call Finder. JACQUELINE Hamilton 09/24/24 3506 I, Skye Lara MD, personally performed the [...] -- 84 20 94 % -- -- 09/23/242199 -- -- -- 80 18 97 % -- -- 09/23/24 210 -- -- -- 90 18 98 % [...] 80 16 95 % -- -- 09/23/24 165 -- -- -- 82 15 96 % [...] acute urinary retention for 1.5 L, improving BRADNON, status post craniotomy on09/23/24 for a brain [...] neurosurgery operative report reviewed. Impressions: 1. Nitish [place] Status post 09/23/2024 craniotomy excision right temporal glioma Dr. Espinal for Right temporal brain mass with shift with very high volume urinary retention 1.5 L with the acute kidneyinjury creatinine 15.68 improved with Alexis catheter with mild bilateral hydronephrosis ultrasound 09/19/2024 2. By radiology report concern for 4 mm nonobstructing right renal stone retroperitoneal ehlzehovas91/03/2025; no stone definitively CT 09/20/2024 Recommendations: 1. As above. Dr. Gunn taking over as hospitalists for our group starting tomorrow. Likely benefit long run from follow up at the [facility] office. . Thank you very much. I appreciate being asked to help with this patient's care. Enid Eaton Jr., M.D. [facility] [phone] * Chip Zarate APRN-RUBINA - 09/24/2024 6:50 AM EDT Images from the original note were not included. [facility] [address] [place] [address], [address] [place] [address] * NEUROSURGERY DAILY PROGRESS NOTE DATE:09/24/2024 PATIENT'S [...] Edward- [facility] Please contact via SMARTChat first then can utilize Patient touch/VoceraEdge if needed 09/24/24 6:54 AM To find out which DIANE is on for the day please go to [facility] and use log in Verid and search for PTH Neurosurgery (DIANE and Phone Number is listed) JACQUELINE Vazquez 09/24/241946 * DEISY Haines - 09/23/2024 12:05 PM EDT NUTRITION ADULT FOLLOW UP NUTRITION ASSESSMENT: Patient History: Brief Clinical Summary: past medical history significant for MS, who initially presented to [facility] from her rehab facility with [...] Results from last 3 days Lab Units 09/23/2470009/22/2461309/21/24 0230 WBC x10E9/L 15.1* 13.7* 12.2* HEMOGLOBIN g/dL 12.3 12.3 11.0* HEMATOCRIT % 37.3 38.0 33.6* PLATELETS X10E9/L 167 167 183 MCV fL 82 83 83 Results from last 3 days Lab Units 09/23/24 0709/22/24 0609/21/24 1152 09/21/24 0230 09/20/24 1114 MAGNESIUM mg/dL 1.8 1.9 -- 1.8 -- IONIZED MAGNESIUM mmol/L -- -- 0.61 -- 0.64 Results from last 3 days Lab Units 09/23/2470009/22/2461325 0230 PHOSPHORUS mg/dL 3.0 3.3 2.7 CALCIUM, [...] 22 08/29/2024 Lab Results Component Value Date [id number] 517 09/19/2024 Lab Results Component Value Date [...] mg 4 mg intravenous Q6H [facility] JACQUELINE Vazquez 4 mg at09/23/24 0621 dextrose (GLUTOSE) 40 [...] 20-60 mEq oral PRN Steffanie E Walker, TILE FITTER-MEDICAL SECRETARY Or potassium chloride IVPB 10 mEq/100 mL in water (0.1 mEq/mL premix) 10 mEq intravenous PRN Steffanie E Walker, TILE FITTER-MEDICAL SECRETARY sennosides-docusate sodium (SENOKOT-S) 8.6-50 mg 2 tablet 2 tablet oral Nightly MARCELLE Spencer sodium phosphate 20 mmol in sodium chloride 0.9 % 250 mL IVPB 20 mmol intravenous PRN Steffanie E Walker, TILE FITTER-MEDICAL SECRETARY Or sodium phosphate 20 mmol in sodium chloride 0.9 % 100 mL IVPB 20 mmol intravenous PRN Steffanie E Walker, TILE FITTER-MEDICAL SECRETARY Or sod phos di, mono-K phos mono (K-PHOS NEUTRAL) 250 mg tablet 2 tablet 2 tablet oral PRN Steffanie E Walker, TILE FITTER-MEDICAL SECRETARY Nutrition Focused Physical Findings +NG, mentation improving, BM 09/22 Skin (per nursing flow sheets): Skin Color: [place] (09/22/241939) Skin Temp: Dry; Cool (09/22/241939) Wound [...] oz) Admit Weight: 119.4kg (Bed Scale, 09/19/24) [place] Body Weight: 61.4kg Weight Changes: 8.5kg loss/3 months (7%), stable inpatient +/- 2kg Current Body Mass Index: Body mass index is 41.7 kg/m . Comparative Standards: Estimated Energy Needs: 0231-0066 kcals daily. Method and weight used: 28-32 kcal/kg IBW Estimated Protein Needs: 74-123 grams daily. Method and weight used: 1.2-2g protein/kg IBW Estimated Fluid Needs: 2408-3113 ml daily. Method weight used: 28-32 ml/kg [...] side. From September of 2024 showing negative COLE negative MPO and PR3 antibody, normal complements, negative anti-GBM, CPK was 18, urine dipstick revealed 100 mg/dL protein moderateblood fractional excretion of sodium was 5.2% and random urine protein to creatinine ratio was 1.6 grams/gram. SPEP pending. Acute urine retention Right temporal 4.1cm brain mass with jpevh-ir-rwrm 60 mm shift with surrounding edema from September of 2024 Multiple sclerosis Left carpal tunnel release Left shoulder arthroscopy KEYANNA PERRIN MD NEPHROLOGY [facility] ANY QUESTIONS FEEL FREE TO CALL: 1. OFFICE [phone] 2. ANSWERING SERVICE:[phone] YOU CAN CONTACT ME THROUGH [employer] SECURE CHAT DURING THE DAYTIME HOURS, IF [...] completed yesterday with preserved LVEF. Did have sycw-ho-mlphwnyz mitral stenosis with a mean gradient of [...] This note was completed using a voice glass cleaning machine tender system. Every effort was made to ensure accuracy. However, inadvertent computerized glass cleaning machine tender errors may be present. * Skye Lara MD - 09/23/2024 10:00 AM EDT Images from the original note were not included. [facility] - [facility] 9 ACUTE [address] [facility] [address] Hospital Medicine Progress Note Patient: Anupama Vasquez Date of : 1970 Room: [place] [address] PCP: FRED GRACIA APRN-MEDICAL SECRETARY Admission date: 09/18/2024 11:59 PM Encounter date: [...] EKG completed Echocardiogram showing preserved LVEF with fowd-pd-ovhcwart mitral stenosis Maintain cardiac monitoring Buttock wound [...] JACQUELINE Hamilton 09/23/2024 10:00 AM [facility] 7AM-7PM & 7PM-7AM: EpicChat or page through On-Call Finder. JACQUELINE Hamilton 09/23/24 7597 I, Skye Lara MD, personally performed the face to face diagnostic evaluation on this patient. I have reviewed the DIANE's History, Exam, and MDM and agree with the assessment and plan as written. * Mynor Vargas RPH - 09/23/2024 8:40 AM EDT [facility] Department of Pharmacy Pharmacy-Physician Communication Anupama Vasquez ( ) qualifies for stress ulcer prophylaxis discontinuation per [employer] Policy. Famotidine IV has been selected for [...] Thank you, Kenya Pastrana RN Rapid Response: [facility] * Keyanna Perrin MD - 09/22/2024 [...] side. From September of 2024 showing negative COLE negative MPO and PR3 antibody, normal complements, negative anti-GBM, CPK was 18, urine dipstick revealed 100 mg/dL protein moderateblood fractional excretion of sodium was 5.2% and random urine protein to creatinine ratio was 1.6 grams/gram. SPEP pending. Acute urine retention Right temporal 4.1cm brain mass with jvchc-aw-fszh 60 mm shift with surrounding edema from September of 2024 Multiple sclerosis Left carpal tunnel release Left shoulder arthroscopy KEYANNA PERRIN MD NEPHROLOGY [facility] ANY QUESTIONS FEEL FREE TO CALL: 1. OFFICE [phone] 2. ANSWERING SERVICE:[phone] YOU CAN CONTACT ME THROUGH [employer] SECURE CHAT DURING THE DAYTIME HOURS, IF [...] from the original note were not included. [facility]IC[facility] - [facility] 9 ACUTE [address] [facility] [address] Hospital Medicine Progress Note Patient: Anupama Vasquez Date of : 1970 Room: [place] [address] PCP: JACQUELINE LUNA Admission date: 09/18/2024 11:59 [...] infusion, 50-150 mL/hr, Last Rate: Stopped (09/22/24 3857) As Needed: acetaminophen OR acetaminophen bisacodyL calcium [...] ICU postoperatively. JACQUELINE Hamilton 09/22/2024 10:40 AM [facility] 7AM-7PM & 7PM-7AM: EpicChat or page through On-Call Finder. PEGGY HamiltonRUBINA 09/22/24 1648 Anjelica Venegas APRN-RUBINA 09/22/24 1650 I, Skye Lara MD, personally [...] Thank you, He Gutierrez RN Rapid Response: [facility] * Enid Eaton Jr., MD - [...] 4 mm nonobstructing right renal stone retroperitoneal utduwxmtae52/03/2025; no stone definitively CT 09/20/2024 Recommendations: 1. As above 2. Craniotomy plan for tomorrow. We will plan to return to see the patient . Let us know ifyou need further help in the interim otherwise.. Thank you very much. I appreciate being asked to help with this patient's care. Enid Eaton Jr., M.D. [facility] [phone] * Mynor Vargas [facility] - 09/22/2024 7:35 AM EDT Images from [...] Component Value Units Date/Time Blood culture #2 [[id number]] Collected: 09/20/24 0733 Specimen: Blood, Venous Updated: 09/22/24 0722 CULTURE RESULTS NO GROWTH 2 DAYS Narrative: Suboptimal volume of blood collected, Results may be affected. Blood culture #1 [[id number]] Collected: 09/20/24 0729 Specimen: Blood, Venous Updated: 09/22/24 0722 CULTURE RESULTS NO GROWTH 2 DAYS Narrative: Suboptimal volume of blood collected, Results may be affected. Blood culture [[id number]] (Abnormal) Collected: 09/19/24 0123 Specimen: Blood, Venous Updated: 09/21/24 1946 CULTURE RESULTS Staphylococcus, coagulase negative Staphylococcus, coagulase negative GRAM STAIN Gram positive cocci in clusters Narrative: Suboptimal volume of blood collected, Results may be affected. BLOOD CULTURE IDENTIFICATION PANEL [[id number]] (Abnormal) Collected: 09/19/24122 Specimen: Blood, Venous Updated: 09/19/24 203 Staphylococcus epidermidis PCR Detected mecA/C gene PCR Detected (Methicillin Resistance) Blood culture [[id number]] Collected: 09/19/24 0026 Specimen: Blood, Venous Updated: 09/22/24 0101 CULTURE RESULTS NO GROWTH 3 DAYS Concurrent Antibiotics: Anti-infectives (From admission, onward) Start Dose/Rate Route Frequency Ordered Stop 09/22/24 0800 vancomycin (VANCOCIN) IVPB 1750 mg in 500 mL sodium chloride 0.9% (CMPD premix) 1,750 mg 268 mL/hr over 120 Minutes intravenous Once 09/22/24 0731 09/19/24 2101 vancomycin (VANCOCIN) IVPB Dosed by Levels intravenous Dosed by Levels 09/19/24 210 Recent Vancomycin Serum Concentrations: Results from last [...] consulting. Mynor Vargas RPH * Laura Gore APRN-MEDICAL SECRETARY - 09/21/2024 3:31 PM EDT Images from the original note were not included. [facility] [address] [place] [address], [address] [place] [address] * NEUROSURGERY DAILY PROGRESS NOTE DATE:09/21/2024 PATIENT'S [...] day please go to ON-Call Finder in [employer] or [employer] [employer] and use log in Verid and search for PTH Neurosurgery JACQUELINE Roth 09/21/24 1606 * Andrae Chisholm PharmD - 09/21/2024 1:11 [...] Component Value Units Date/Time Blood culture #2 [[id number]] Collected: 09/20/24 0733 Specimen: Blood, Venous Updated: 09/21/24 1151 CULTURE RESULTS NO GROWTH 1 DAY Narrative: Suboptimal volume of blood collected, Results may be affected. Blood culture #1 [[id number]] Collected: 09/20/24 0729 Specimen: Blood, Venous Updated: 09/20/24 0729 Blood culture [[id number]] (Abnormal) Collected: 09/19/24 0123 Specimen: Blood, Venous Updated: 09/20/24 1833 CULTURE RESULTS Culture in progress GRAM STAIN Gram positive cocci in clusters Narrative: Suboptimal volume of blood collected, Results may be affected. BLOOD CULTURE IDENTIFICATION PANEL [[id number]] (Abnormal) Collected: 09/19/24 0123 Specimen: Blood, Venous Updated: 09/19/24 203 Staphylococcus epidermidis PCR Detected mecA/C gene PCR Detected (Methicillin Resistance) Blood culture [[id number]] Collected: 09/19/24 0026 Specimen: Blood, Venous Updated: [...] side. From September of 2024 showing negative COLE negative MPO and PR3 antibody, normal complements, negative anti-GBM, CPK was 18, urine dipstick revealed 100 mg/dL protein moderateblood fractional excretion of sodium was 5.2% and random urine protein to creatinine ratio was 1.6 grams/gram. SPEP pending. Acute urine retention Right temporal 4.1cm brain mass with nyslu-nr-lhdd 60 mm shift with surrounding edema from [...] Nightly vancomycin, , intravenous, Dosed by Mikayla KOEEFE D.O. For questions please call: Answering Service at [phone] Or Office at [phone] This note was created with the assistance [...] Eliazar Lockwood M.D., Jose Carlos Buenrostro M.D., Lauar Gunn M.D., Jose Carlos Turpin M.D., Steffanie [...] 4 mm nonobstructing right renal stone retroperitoneal flubshiafh04/03/2025; no stone definitively CT 09/20/2024 Recommendations: 1. [...] this patient's care. Enid Eaton Jr., M.D. [facility] [phone] * Mynor Vargas, [facility] - 09/20/2024 9:25 PM EDT Images from [...] Parameters: I/O last 3 completed shifts: In: 2729 [I.V.:1949; IV Piggyback:781] Out: 5475 [Urine:5475] Calculated CrCl (TBW): 23.5 mL/min Culture Data: Microbiology Results Procedure Component Value Units Date/Time Blood culture #2 [[id number]] Collected: 09/20/24732 Specimen: Blood, Venous Updated: 09/20/24732 Blood culture #1 [[id number]] Collected: 09/20/24728 Specimen: Blood, Venous Updated: 09/20/24728 Blood culture [[id number]] (Abnormal) Collected: 09/19/24122 Specimen: Blood, Venous Updated: 09/20/24 183 CULTURE RESULTS Culture in progress GRAM STAIN Gram positive cocci in clusters Narrative: Suboptimal volume of blood collected, Results may be affected. BLOOD CULTURE IDENTIFICATION PANEL [[id number]] (Abnormal) Collected: 09/19/24122 Specimen: Blood, Venous Updated: 09/19/242030 Staphylococcus epidermidis PCR Detected mecA/C gene PCR Detected (Methicillin Resistance) Blood culture [[id number]] Collected: 09/19/24 0026 Specimen: Blood, Venous Updated: [...] you for consulting. Mynor Vargas RPH * JACQUELINE Vazquez - 09/20/2024 2:20 PM EDT BRIEF NEUROSURGERY [...] Edward- [facility] Please contact via Luminoso first then can utilize Patient touch/VoceraEdge if needed 09/20/24 2:22 PM To find out which DIANE is on for the day please go to [facility] and use log in Verid and search for PTH Neurosurgery (DIANE and Phone Number is listed) JACQUELINE Vazquez 09/20/24 [phone] * Hiram Jones MD - 09/20/2024 9:28 [...] last 7 days Lab Units 09/20/24 02509/19/24 1958 09/19/24 1223 09/19/24 0412 09/19/24 0407 [...] Component Value Units Date/Time Blood culture #2 [[id number]] Collected: 09/20/24732 Specimen: Blood, Venous Updated: 09/20/24732 Blood culture #1 [[id number]] Collected: 09/20/24728 Specimen: Blood, Venous Updated: 09/20/24728 Blood culture [[id number]] (Abnormal) Collected: 09/19/24122 Specimen: Blood, Venous Updated: 09/19/242034 CULTURE RESULTS NO GROWTH <24 HRS GRAM STAIN Gram positive cocci in clusters Narrative: Suboptimal volume of blood collected, Results may be affected. BLOOD CULTURE IDENTIFICATION PANEL [[id number]] (Abnormal) Collected: 09/19/24 012 Specimen: Blood, Venous Updated: 09/19/242030 Staphylococcus epidermidis PCR Detected mecA/C gene PCR Detected (Methicillin Resistance) Blood culture [[id number]] Collected: 09/19/24 0026 Specimen: Blood, Venous Updated: [...] Brain CT from September 18 outside facility [place] PROCEDURE: Multiplanar multisequence images performed through the [...] for surgical planning. I favor a primary GUEST ADVISOR neoplasm such as a glioblastoma or astrocytoma. [...] follow with you. Enid Eaton Jr., M.D. [facility] [phone] * Miriam Church MD - 09/20/2024 7:51 [...] from last 7 days Lab Units 09/20/24 25809/19/24195709/19/24 1223 09/19/24 0412 09/19/24 0026 SODIUM mmol/L [...] from last 7 days Lab Units 09/19/24 01309/19/24 0123 09/19/24 0026 PROTEIN TOTAL g/dL -- -- 6.8 ALBUMIN g/dL -- -- 3.4 AST U/L -- -- 8 ALT U/L -- -- 4 BILIRUBIN SORIN Negative -- -- BILIRUBIN, TOTAL mg/dL -- -- 0.4 BILIRUBIN URINE -- Negative -- ALK PHOS U/L -- -- 73 Results from last 7 days Lab Units 09/20/2425809/19/24 0446 09/19/24 0026 WBC x10E9/L 8.9 9.2 10.3 HEMOGLOBIN g/dL 11.0* 11.4* 11.5* HEMATOCRIT % 33.5* 34.9* 34.9* PLATELETS X10E9/L 190 189 199 Lab Results Component Value Date IRON 56 09/19/2024 TIBC 309 09/19/2024 FERRITIN 130 09/19/2024 IRONSAT 18 09/19/2024 Results from last 7 days Lab Units 09/20/2425809/19/24 0412 09/19/24 0407 09/19/24 0026 BEDSIDE GLUCOSE [...] and left side. From September of 2024 COLE anti MPO anti PR3 and anti-GBM are pending, serumprotein electrophoresis is pending, C3 was 196 and C4 was 42, CPK was 18, urine dipstick revealed 100 mg/dL protein moderate blood fractional excretion of sodium was 5.2% and random urine protein to creatinine ratio was 1.6 grams/gram. Acute urine retention Right temporal 4.1cm brain mass with fhcwt-dc-gfex 60 mm shift with surrounding edema from [...] For questions please call: Answering Service at [phone] Or Office at [phone] This note was created with the assistance of a speech-recognition program. Although the intention is to generate a document that actually reflects the content of the visit, no guarantees can be provided that every mistake has been identified and corrected by editing. * Steffanie Lozano, ELAN-MEDICAL SECRETARY - 09/20/2024 6:27 AM EDT Images from [...] of care discussed with Dr.case Steffanie Lozano TILE FITTER MEDICAL SECRETARY Acute Care Nurse Practitioner [facility] [...] Procedure Component Value Units Date/Time Blood culture [[id number]] (Abnormal) Collected: 09/19/24 012 Specimen: Blood, Venous Updated: 09/19/242034 CULTURE RESULTS NO GROWTH <24 HRS GRAM STAIN Gram positive cocci in clusters Narrative: Suboptimal volume of blood collected, Results may be affected. BLOOD CULTURE IDENTIFICATION PANEL [[id number]] (Abnormal) Collected: 09/19/24 012 Specimen: Blood, Venous Updated: 09/19/242030 Staphylococcus epidermidis PCR Detected mecA/C gene PCR Detected (Methicillin Resistance) Blood culture [[id number]] Collected: 09/19/24 0026 Specimen: Blood, Venous Updated: [...] infusion, 50-150 mL/hr, Last Rate: 75 mL/hr (09/20/2458) JACQUELINE Hughes 09/20/24 3402 Cosigned by Mynor Watkins MD at 09/20/2024 9:58 AM EDT * Carolina Schulz [facility] - 09/19/2024 9:08 PM EDT Images from [...] last 3 days Lab Units 09/19/24 0446 09/19/2441109/19/24 0026 CREATININE mg/dL -- 7.54* 9.65* BUN [...] Procedure Component Value Units Date/Time Blood culture [[id number]] (Abnormal) Collected: 09/19/24122 Specimen: Blood, Venous Updated: 09/19/242034 CULTURE RESULTS NO GROWTH <24 HRS GRAM STAIN Gram positive cocci in clusters Narrative: Suboptimal volume of blood collected, Results may be affected. BLOOD CULTURE IDENTIFICATION PANEL [[id number]] (Abnormal) Collected: 09/19/24122 Specimen: Blood, Venous Updated: 09/19/242030 Staphylococcus epidermidis PCR Detected mecA/C gene PCR Detected (Methicillin Resistance) Blood culture [[id number]] Collected: 09/19/2425 Specimen: Blood, Venous Updated: 09/19/24 1301 CULTURE [...] iv bid has been changed per the [facility]- approved renal dosing policy. Current CrCl = 6 mL/min. Accordingly, the dose of famotine 20mg iv bid was changed to famotidine 20mg iv q48hr. If there are any issues or concerns, please contact central pharmacy [place] [phone]. Thank you, Ayush Mina Jr. [facility]. [facility] Discharge instructions* Discharge Instructions* Laura Gore APRN-MEDICAL SECRETARY - 09/26/2024 2:57 PM EDT Neurosurgery Discharge [...] ointments to your incision Other Instructions: Call [facility] Neurosurgery with any questions, . documented in this encounterReg[facility] History and physical note* Jair Espinal MD - 09/23/2024 1:11 PM EDT HISTORY AND PHYSICAL INTERVAL NOTE: Anupama Milan 1970 [id number] H&P reviewed. The patient was examined and there are no changes to the H&P. Jair Espinal MD Source Note - JACQUELINE Roth - 09/21/2024 3:31 PM EDT Images from the original note were not included. [facility] [address] [place] [address], [address] [place] [address] * NEUROSURGERY DAILY PROGRESS NOTE DATE:09/21/2024 PATIENT'S [...] day please go to [facility] or [facility] and use log in Verid and search for PTH Neurosurgery JACQUELINE Roth 09/21/24 2526 JACQUELINE Roth 09/23/24 1311 * Rom Buckner, JACQUELINE - 09/19/2024 4:17 AM EDT CRITICAL CARE HISTORY & PHYSICAL Name: Anupama Vasquez Date: 09/19/2024 Length of Stay: 0 day(s) Chief Complaint Patient presents with Altered Mental Status Evaluation of Abnormal Diagnostic Test HISTORY OF PRESENT ILLNESS: Anupama Vasquez is a 54 y.o. year-old female with a past medical history significant for MS, who initially presented to [facility] from her rehab facility with complaints of altered mental status. Per chart review patient was recently treated for rhabdomyolysis. Her initial workup was significant for hyperkalemia with a potassium of 5.5, BRANDON with creatinine of 15.68, BUN 133, bicarb 20 and leukocytosis with WBC 12.7, also as CT head was obtained and demonstrated a 4.1 cm right temporal brain mass with hyvym-yp-mvkw 60 mm shift which includes surrounding edema [...] Resource Strain: High Risk (06/04/2023) Received from [facility] Overall Financial Resource Strain (CARDIA) Difficulty of Paying Living Expenses: Very hard Food Insecurity: No Food Insecurity (09/16/2024) Hunger Screening Food Insecurity - Worry: Never True Food Insecurity - Inability: Never True Transportation Needs: No Transportation Needs (08/28/2024) PRAPARE - Transportation Lack of Transportation (Medical): No Lack of Transportation (Non-Medical): No Physical Activity: Sufficiently Active (06/04/2023) Received from [facility] Exercise Vital Sign Days of Exercise per Week: 4 days Minutes of Exercise per Session: 40 min Stress: No Stress Concern Present (06/04/2023) Received from [facility] [employer] [facility] - Occupational Stress Questionnaire Feeling of Stress : Only a little Social Connections: Moderately Integrated (06/04/2023) Received from [facility] Social Connection and Isolation Panel [NHANES] Frequency of Communication with Friends and Family: Twice a week Frequency of Social Gatherings with Friends and Family: Once a week Attends Confucianist Services: 1 to 4 times per year [...] Procedure Component Value Units Date/Time Blood culture [[id number]] Collected: 09/19/24122 Specimen: Blood, Venous Updated: 09/19/24134 Blood culture [[id number]] Collected: 09/19/2425 Specimen: Blood, Venous Updated: 09/19/2444 [...] Procedure Component Value Units Date/Time Blood culture [[id number]] Collected: 09/19/24122 Specimen: Blood, Venous Updated: 09/19/24134 Blood culture [[id number]] Collected: 09/19/2425 Specimen: Blood, Venous Updated: 09/19/2444 Lines/Drains CVC Triple Lumen 09/19/24 Right Internal Jugular (Active) Precautions Standard precautions;Hand hygiene;Gloves 09/19/24399 Lumen 1 Proximal 09/19/24 0400 Lumen 1 Status Blood return noted;Saline locked;Flushed;Alcohol sponge cap changed;Connections checked/tightened 09/19/24 040 Lumen 1 Needleless Cap Change Completed 09/19/24 0400 Lumen 1 Needleless Cap Change Due 09/23/24 09/19/24 0400 Lumen 2 Medial 09/19/24 040 Lumen 2 Status Blood return noted;Saline locked;Flushed;Alcohol sponge cap changed;Connections checked/tightened 09/19/24 0400 Lumen 3 Distal 09/19/24 040 Lumen 3 Status Blood return noted;Flushed;Infusing;Alcohol sponge cap changed;Connections checked/tightened 09/19/24 040 Site Assessment Clean;Dry;Intact 09/19/24399 Dressing Type Occlusive;Transparent with CHG gel 09/19/24 0400 Dressing Status Clean;Dry;Intact 09/19/24 0400 Dressing Intervention Dressing changed 09/19/24399 Line Necessity Peripherally incompatible solution 09/19/24399 Line Necessity Reviewed With crit care 09/19/24 040 Patient Tolerance of Line Care Tolerated well 09/19/24399 Central Line Dressing Change Due (Non-Gauze) 09/26/24 09/19/24 040 Peripheral IV 09/19/24 Right Forearm (Active) Line Status Blood return noted;Saline locked;Flushed;Alcohol sponge cap changed;Connections checked/tightened 09/19/24 040 Site Assessment Clean;Intact;Dry 09/19/24 040 Dressing Type Occlusive;Transparent 09/19/24399 Dressing Status Clean;Dry;Intact 09/19/24 040 Dressing Intervention Initial dressing 09/19/24399 Dressing Change Due (Non-Gauze) 09/26/24 09/19/24 040 Urinary Catheter 09/19/24 (Active) Catheter Status Patent 09/19/246 Site Assessment Clean 09/19/24 000 Collection Container Leg bag 09/19/24 000 Securement Method Securing device (Describe) 09/19/24 000 Tamper Evident Seal Intact Yes 09/19/246 Urine Color Yellow/straw 09/19/242 Urine Appearance Cloudy 09/19/24 0312 Output (mL) 1550 mL 09/19/24 0312 Patient Active Problem List Diagnosis Non-traumatic rhabdomyolysis Weakness Generalized anxiety disorder with panic attacks Hyperlipidemia, acquired Multiple sclerosis ([facility]) LORENZO (obstructive sleep apnea) Primary hypertension [...] 4.1 cm right temporal brain mass with kimad-fj-pdux 60 mm shift which includes surrounding edema 4.1 cm right temporal brain mass with 6 mm lchne-pq-kelv midline shift - closely monitor neuro status [...] titration of care by a Critical Care Fire Equipment Inspector Helper. Failure to do so may result in further organ system failure, imminent deterioration, or . JACQUELINE Lemus 09/19/24 0535 Cosigned by Sheila Jung MD at 09/19/2024 6:12 AM EDT documented in this encounterReg[facility]25 NoteXR CHEST 1 VW History: Preoperative exam. History of asthma. Procedure: Chest AP portable upright Comparison: 10/06/2024 Findings: The heart and lungs show no acute findings, and the mediastinum and gema are grossly negative . No pneumothorax. Impression: No acute pulmonary process. Finalized by Shen Farooq MD on 09/23/2024 12:[address] [facility] 09-22-2024 Consult note* Melo Gill PA-C - 09/22/2024 11:32 AM EDT Associated Order(s): IP CONSULT TO CARDIOLOGY Images from the original note were not included. [facility] [address] [place] [address] HISTORY & PHYSICAL / CONSULT NOTE Anupama [...] with surrounding edema. Pt was transferred to [facility]. Pt still has altered mental status. From a cardiac standpoint she was having intermittent narrow complex tachycardia. Previous Medical History: Past Medical History: Diagnosis Date MS (multiple sclerosis) ([facility]) 2012 Previous Surgical History: Past Surgical History: Procedure Laterality Date CARPAL TUNNEL RELEASE Left SHOULDER ARTHROSCOPY W/ ROTATOR CUFF REPAIR Left Allergies: No Known Allergies Hospital Meds: Current Facility-Administered Medications Medication Dose Route Frequency Provider Last Rate Last Admin acetaminophen (TYLENOL) tablet 650 mg 650 mg oral Q6H PRN MARCELLE Sepncer Or acetaminophen (TYLENOL) 650 mg/20.3 mL solution [...] mg 4 mg intravenous Q6H [facility] JACQUELINE Vazquez 4 mg at05/06/25 0609 dextrose (GLUTOSE) 40 % gel 15 g 15 g oral PRN MARCELLE Spencer dextrose 2.5 % in water, 1,000 mL infusion 50-150 mL/hr intravenous Continuous JACQUELINE Hughes Stopped at 09/22/24 0747 dextrose 50 % in water (D50W) 50% solution 25 mL 25 mL intravenous PRN MARECLLE Spencer famotidine (PF) (PEPCID) injection 20 mg [...] This note was completed using a voice glass cleaning machine tender system. Every effort was made to ensure accuracy. However, inadvertent computerized glass cleaning machine tender errors may be present. Melo Gill PA-C 09/22/24 1138 Cosigned by Ned Machado MD at 09/22/2024 1:27 PM EDT * Skye Lara MD - 09/21/2024 11:10 AM EDT Images from the original note were not included. [facility] INTERNAL MEDIC[facility] GEN ICU [address] [facility] [id number] Hospital Medicine Consultation Patient: Anupama Vasquez Date of : 1970 Room: A9/ PCP: FRED GRACIA APRN-RUBINA Admission date: 09/18/2024 11:59 PM Hospital Day: 4 Encounter date: 09/21/24 Hospital Day: 4 SUBJECTIVE Reason for Consult: Assume Primary on transfer from ICU Referring Physician/Team: Neurosurgery/Critical Care Anupama Vasquez is a 54 y.o. female with a past medical history including MS, hypertension, hyperlipidemia, obstructive sleep apnea, obesity who initially presented to [facility] via EMS 09/18/2024 from her extended care facility for altered mental status. Initial lab work at [place] showed hyp erkalemia of 5.5 creatinine 15.68, [...] 4.1 cm right temporal brain mass with exjxt-wn-yise shift and surrounding edema. Case was discussed with neurosurgery and patient was transferredER to ER here to [facility] for further neurosurgery evaluation. She was [...] patient was treated under our service at [facility] in August for nontraumatic rhabdomyolysis. At [...] for 30 days. 09/01/24 10/01/24 Tristen Lombardi APRN-MEDICAL SECRETARY mirtazapine (REMERON CANDI-TAB) 15 mg disintegrating tablet Dissolve 1 tablet (15 mg total) on tonguenightly. Not In System Ref Prov Code Status: Full Code Past Medical History: Patient has a past medical history of MS (multiple sclerosis) ([facility]) (2012). Past Surgical History: Patient has [...] 50-150 mL/hr, Last Rate: 50 mL/hr (09/21/24 340) As Needed: acetaminophen OR acetaminophen bisacodyL calcium [...] Brain CT from September 18 outside facility [place] PROCEDURE: Multiplanar multisequence images performed through the [...] for surgical planning. I favor a primary GUEST ADVISOR neoplasm such as a glioblastoma or astrocytoma. [...] for acute or suspicious pathology in the yyczs-tc-pebk. The trachea and bronchi are patent. No [...] JACQUELINE Hamilton 09/21/2024 3:26 PM [facility] Internal Medicine 7AM-7PM & 7PM-7AM: EpicChat [...] Medical History: Diagnosis Date MS (multiple sclerosis) ([facility]) 2012 Past Surgical History: Past Surgical History: Procedure Laterality Date CARPAL TUNNEL RELEASE Left SHOULDER ARTHROSCOPY W/ ROTATOR CUFF REPAIR Left Social/ Cognitive/ Economic: readmitted from rehab facility Brief Clinical Summary: past medical history significant for MS, who initially presented to [facility] from her rehab facility with [...] 22 08/29/2024 Lab Results Component Value Date [id number] 517 09/19/2024 Lab Results Component Value Date [...] mg intravenous Q6H JACQUELINE Ayala 4 mg at09/21/24 0616 dextrose (GLUTOSE) 40 [...] Skin (per nursing flow sheets): Skin Color: [place]; Pale (09/21/24799) Skin Temp: Cool; Clammy (09/21/24799) Wound (per nursing flow sheets): Wound 09/19/24 Skin Tear Thigh Anterior;Left-Site Assessment: Unable to assess (dressing on) (09/21/24 08) Wound 09/19/24 Pressure Injury Buttocks Left-Site Assessment: Unable to assess (dressing on) (09/21/24799) Gastrointestinal (per nursing flow sheets): Abdomen Assessment: Soft; Rounded; [place]annis ( Apron ); Obese (09/21/24799) Last BM Date: (hu) (09/20/24 193) Passing Flatus: Yes (09/20/24 0330) RUQ Bowel Sounds: Present (09/21/24 08) LUQ Bowel Sounds: Present (09/21/24799) RLQ Bowel [...] Body Weight: see above for wt trends [place] Body Weight: 61.4kg Percent [place] Body Weight: 193% Weight Changes: 8.5kg loss/3 months (7%) Body Mass Index: Body mass index is 40.92 kg/m . BMI Category: Obese class 3 (> or = 40.00) Comparative Standards: Estimated Energy Needs: 5209-9828 kcals daily. Method and weight used: 28-32 kcal/kg IBW Estimated Protein Needs: 74-123 grams daily. Method and weight used: 1.2-2g protein/kg IBW Estimated Fluid Needs: 0953-5933 ml daily. 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 Urology [...] Medical History: Diagnosis Date MS (multiple sclerosis) ([facility]) 2012 Past Surgical History: Past Surgical [...] 50-150 mL/hr, Last Rate: 125 mL/hr (09/19/24 06) dextrose 5 % in water, 100 mL/hr [...] Resource Strain: High Risk (06/04/2023) Received from [facility] Overall Financial Resource Strain (CARDIA) Difficulty of Paying Living Expenses: Very hard Food Insecurity: No Food Insecurity (09/16/2024) Hunger Screening Food Insecurity - Worry: Never True Food Insecurity - Inability: Never True Transportation Needs: No Transportation Needs (08/28/2024) PRAPARE - Transportation Lack of Transportation (Medical): No Lack of Transportation (Non-Medical): No Physical Activity: Sufficiently Active (06/04/2023) Received from [facility] Exercise Vital Sign Days of Exercise per Week: 4 days Minutes of Exercise per Session: 40 min Stress: No Stress Concern Present (06/04/2023) Received from [facility] - Occupational Stress Questionnaire Feeling of Stress : Only a little Social Connections: Moderately Integrated (06/04/2023) Received from [facility] Social Connection and Isolation Panel [NHANES] Frequency of Communication with Friends and Family: Twice a week Frequency of Social Gatherings with Friends and Family: Once a week Attends Confucianist Services: 1 to 4 times per year [...] Procedure Component Value Units Date/Time Blood culture [[id number]] Collected: 09/19/24 012 Specimen: Blood, Venous Updated: 09/19/24134 Blood culture [[id number]] Collected: 09/19/2425 Specimen: Blood, Venous Updated: 09/19/2444 [...] 4 mm nonobstructing right renal stone retroperitoneal msdnhyyvwk37/03/2025 Recommendations: 1. As above 2. check stone protocol CT to rule out stone. 3. Pending OR Saturday Neurosurgery. We will follow with you. Thank you very much. I appreciate being asked to help with this patient's care. Enid Eaton Jr., M.D. [facility] [phone] * Chip Zarate APRN-MEDICAL SECRETARY - 09/19/2024 11:00 AM EDTAssociated Order(s): Consult Neurosurgery Images from the original note were not included. [facility] [address] [place] [address], [address] [place] [address] * NEUROSURGERY CONSULT NOTE DATE:09/19/2024 PATIENT'S NAME: [...] mg, 4 mg, intravenous, Q6H FELTON, Chip A JACQUELINE Zarate, 4 mg at 09/19/24 1326 dextrose (GLUTOSE) [...] (5 mg/mL premix), 500 mg, intravenous, Q12H, PEGGY VazquezMEDICAL SECRETARY, Stopped at 09/19/24 0910 magnesium sulfate IVPB [...] Medical History: Diagnosis Date MS (multiple sclerosis) ([facility]) 2012 Past Surgical History: Procedure Laterality [...] Edward- [facility] Please contact via SMARTChat first then can utilize Patient touch/VoceraEdge if needed 09/19/24 3:10 PM To find out which DIANE is on for the day please go to [facility] and use log in Verid and search for PTH Neurosurgery (DIANE and Phone Number is listed) - JACQUELINE VAZQUEZ 09/19/24 2:53 PM JACQUELINE Vazquez 09/19/24 1511 * Miriam Church MD - 09/19/2024 9:13 [...] status. The patient apparently was seen at [facility] for altered mental status. She was found to have acute kidney injury with a creatinine 14.8. CT revealed a 4.1 cm right temporal mass with midline shift. The patient was found to have acute urine retention. Alexis catheter was placed. She was transferred to [facility] for further evaluation management and neurosurgical [...] and left side. From September of 2024 COLE anti MPO anti PR3 and anti-GBM are pending, serumprotein electrophoresis is pending, C3 was 196 and C4 was 42, CPK was 18, urine dipstick revealed 100 mg/dL protein moderate blood fractional excretion of sodium was 5.2% and random urine protein to creatinine ratio was 1.6 grams/gram. Acute urine retention Right temporal 4.1 brain mass with azjzh-qa-knte 60 mm shift with surrounding edema from [...] Resource Strain: High Risk (06/04/2023) Received from [facility] Overall Financial Resource Strain (CARDIA) Difficulty of Paying Living Expenses: Very hard Food Insecurity: No Food Insecurity (09/16/2024) Hunger Screening Food Insecurity - Worry: Never True Food Insecurity - Inability: Never True Transportation Needs: No Transportation Needs (08/28/2024) PRAPARE - Transportation Lack of Transportation (Medical): No Lack of Transportation (Non-Medical): No Physical Activity: Sufficiently Active (06/04/2023) Received from [facility] Exercise Vital Sign Days of Exercise per Week: 4 days Minutes of Exercise per Session: 40 min Stress: No Stress Concern Present (06/04/2023) Received from [facility] [employer] - Occupational Stress Questionnaire Feeling of Stress : Only a little Social Connections: Moderately Integrated (06/04/2023) Received from [facility] Social Connection and Isolation Panel [NHANES] Frequency of Communication with Friends and Family: Twice a week Frequency of Social Gatherings with Friends and Family: Once a week Attends Confucianist Services: 1 to 4 times per year [...] call us with any questions at: Office: [phone] Office Answering Service: [phone] Miriam Church M.D. This note was created with the assistance of a speech-recognition program. Although the intention is to generate a document that actually reflects the content of the visit, no guarantees can be provided that every mistake has been identified and corrected by editing. documented in this [facility]Reg[facility] Emergency department Note* Isaiah Driscoll RN - 09/19/2024 12:04 AM EDT Arrives via flight from [facility] From a SNF, sent here for altered mental status and abnormal CT results, pt is alert but not oriented. * Lewis Botello DO - 09/19/2024 12:03 AM EDT Images from the original note were not included. [facility] EMERGENCY DEPARTMENT Pt Name: Anupama [...] consultation. Per records brought by EMS from [facility] ED patient was seen for urinary retention with GFR of 14.85, altered mental status, patient hada CT done which revealed 4.1 cm right temporal brain mass with ljnzp-ab-ukyb 60 mm shift which includes surrounding edema. Patient is protected airway is able to communicate. History provided by: Patient Past Medical History: Past Medical History: Diagnosis Date MS (multiple sclerosis) ([facility]) 2012 Past Surgical History: Past Surgical [...] Resource Strain: High Risk (06/04/2023) Received from [facility] Overall Financial Resource Strain (CARDIA) Difficulty of Paying Living Expenses: Very hard Food Insecurity: No Food Insecurity (09/16/2024) Hunger Screening Food Insecurity - Worry: Never True Food Insecurity - Inability: Never True Transportation Needs: No Transportation Needs (08/28/2024) PRAPARE - Transportation Lack of Transportation (Medical): No Lack of Transportation (Non-Medical): No Physical Activity: Sufficiently Active (06/04/2023) Received from [facility] Exercise Vital Sign Days of Exercise per Week: 4 days Minutes of Exercise per Session: 40 min Stress: No Stress Concern Present (06/04/2023) Received from [facility] [employer] - Occupational Stress Questionnaire Feeling of Stress : Only a little Social Connections: Moderately Integrated (06/04/2023) Received from [facility] Social Connection and Isolation Panel [NHANES] Frequency of Communication with Friends and Family: Twice a week Frequency of Social Gatherings with Friends and Family: Once a week Attends Confucianist Services: 1 to 4 times per year [...] Lewis Botello who performed the above service. Dr. Rosmery Moreno saw the patient, was physically present during [...] Ken Ontiveros MD Resident 09/19/24 0005 Sotero Jasmin 09/19/24 0028 Ken Ontiveros MD Resident 09/19/24 [...] and talking. Vital signs are stable. Dr. Espinla has been notified and asked that the patient be sent to the ER for evaluation. Sending requested flight: Flight accepted, will be to [place] at 2300. 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 Wound Care Progress Note Patient: Anupama Vasquez Date of : 1970 Chief Complaint: Wound on buttocks New patient evaluation SUBJECTIVE/HPI: Anupama is a 54 y.o. 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 Past Medical History: Diagnosis Date MS (multiple sclerosis) ([facility]) 2012 Past Surgical History: Procedure Laterality Date [...] (Active) Wound Image 09/16/24 1323 Site Assessment Yellow;[place] 09/16/24 1323 [place]-wound Assessment Blanchable erythema;[place] 09/16/24 1323 Wound Length (cm) 1 cm 09/16/24 1323 Wound Width (cm) 1 cm 09/16/24 1323 Wound Surface Area (cm^2) 0.79 cm^2 09/16/24 1323 Wound Depth (cm) 0.1 cm 09/16/24 1323 Wound Volume (cm^3) 0.052 cm^3 09/16/24 1323 Drainage Description Serous;Yellow 09/16/24 132 Drainage Amount Small 09/16/24 132 Treatments Cleansed with;Soak with;Vashe/Hypochlorous Acid 09/16/24 132 Wound Bed Granulation (%) 75% to 100% [...] and buttocks. Short term goal: medical compliance retirement goal: wound closure Patient verbalize understanding of [...] Castillo APRN, RUBINA, CWS, ZOE [facility]: [phone] JACQUELINE Germain 09/16/24 8378 documented in this [facility]04-30-2025 Instructions* Patient Instructions* Angela Chapa RN - 09/16/2024 1:20 PM EDT Wound Management Treatment Plan [facility] Wound Location(s): LEFT BUTTOCKS HOW TO [...] Description small Serous serous documented in this encounterRegency Hospital [facility]04-01-2025 History of Present illness Narrative* Fred Gracia [...] you about trying this medication * Fred Ascenciojesicalee, CARDIOLOGY FELLOW - 08/18/2024 9:20 AM EDT Images from [...] Date Abnormal CBC 07/30/2023 Anxiety and depression ([facility]) Carpal tunnel syndrome 2002 Chronic diarrhea Chronic shoulder pain 05/01/2023 Class 3 severe obesity without serious comorbidity with body mass index (BMI) of 45.0 to 49.9 in adult ([facility]) 04/30/2023 Constipation Depression ([facility]) Hot flashes 07/30/2023 Hyperlipidemia, acquired ([facility]) 07/30/2023 Hypertension ([facility]) Knee pain, left anterior Major depression ([facility]) Morbid obesity with BMI of 40.0-44.9, adult ([facility]) Multiple sclerosis ([facility]) Night sweats 07/30/2023 LORENZO (obstructive sleep apnea) 07/30/2023 Pain of left middle finger Primary insomnia Rash Rectal burning Right knee pain, unspecified chronicity Sinusitis Stroke ([facility]) 07/30/2023 Urinary incontinence in female Vaginal discharge Vitamin D deficiency Past Surgical History: Procedure Laterality Date CARPAL TUNNEL RELEASE Right 2004 ECTOPIC SURGERY HYSTERECTOMY 1991 SHOULDER SURGERY Left 02/10/2024 Arthroscopy, RCR @ [facility] w/ MTP TUBAL LIGATION 1990 family [...] juices, and sugary drinks. documented in this encounterPemiscot Memorial Health [id number] Instructions* Patient Instructions* Fred Gracia NP - 08/18/2024 9:20 AM EDT Cont escitalopram 10mg daily, as well as the aripriazole 10mg daily Increase the buspirone from 5mg , to 7.5mg and you can take this every 8 hour NEEDED for anxiety We will add the mirtazipine for sleep I will refer you to [facility] in [place], they should call you documented in this [facility]03-17-2025 Telephone encounter Note* Telephone Encounter - Elva Rodriguez NP - 08/03/2024 11:58 AM EDT Patient needs to reschedule appointment she missed today. She is [facility] patient and was scheduledwith Nasra. [facility]ra follow up visits are 30 minutes and new patients 40 minutes. This would be follow up visit. [facility] Healthcare Work Phone: [phone] Miscellaneous Notes* Telephone Encounter - Elva Rodriguez NP - 08/03/2024 11:58 AM EDT Patient needs to reschedule appointment she missed today. She is [facility] patient and was scheduledwith Nasra. [facility]ra follow up visits are 30 minutes and new patients 40 minutes. This would be follow up visit. documented in this [facility]01-29-2025 History of Present illness Narrative* Sherrie Boone [...] (ZyrTEC) 10 MG tablet documented in this [facility]01-29-2025 Instructions* Patient Instructions* Sherrie Boone NP [...] THE NEAREST EMERGENCY DEPARTMENT. documented in this [facility]12-30-2024 History of Present illness Narrative* Fred [...] Depression (CMS/HCC) Hot flashes 07/30/2023 Hyperlipidemia, acquired (CMS/[facility]) 07/30/2023 Hypertension (CMS/HCC) Knee pain, left anterior Major depression (CMS/HCC) Morbid obesity with BMI of 40.0-44.9, adult ([facility]) Multiple sclerosis ([facility]) Night sweats 07/30/2023 LORENZO (obstructive sleep apnea) 07/30/2023 Pain of left middle finger Primary insomnia Rash Rectal burning Right knee pain, unspecified chronicity Sinusitis Stroke ([facility]) 07/30/2023 Urinary incontinence in female Vaginal discharge Vitamin D deficiency Past Surgical History: Procedure Laterality Date CARPAL TUNNEL RELEASE Right 2004 ECTOPIC SURGERY HYSTERECTOMY 1991 SHOULDER SURGERY Left 02/10/2024 Arthroscopy, RCR @ [facility] w/ MTP TUBAL LIGATION 1990 family [...] (BMI) of 45.0 to 49.9 in adult ([facility]) Discussed with patient their BMI (actual, [...] takes meds sleeps 7 hours Multiple sclerosis ([facility]) Continue with neurology and treatment Encounter for screening mammogram for malignant neoplasm of breast Relevant Orders Bilateral screening mammogram Depression ([facility]) Husbands over the last few months, [...] basis Generalized anxiety disorder with panic attacks ([facility]) Lexapro at 20mg anhedonia, and at 10mg [...] with neurology and treatment documented in this encounterPemiscot Memorial Health [id number] Instructions* Patient Instructions* Fred Gracia NP - 05/18/2024 9:20 AM EST Keep escitalopram at 10mg, add ariprazole 5mg daily, add buspar 5mg twice a day for anxiety Follow up appt in 4 weeks Need mammogram-[facility] documented in this encounterPemiscot Memorial Health [id number] Telephone encounter Note* Telephone Encounter - Vicenta [...] PT for shoulder. She noted the recommendation. [facility] [id number] Miscellaneous Notes* Telephone Encounter - Vicenta Dill [...] and notify if requested. documented in this encounterPemiscot Memorial Health [id number] Telephone encounter Note* Telephone Encounter - Vicenta [...] would inform PT and notify if requested. [facility] [id number] History of Present illness Narrative* Alona King [...] called to verify the correctpatient, procedure, equipment, endoscopy support specialist and site/side marked as required. [...] used for breakthrough discomfort. documented in this [facility]12-09-2024 Instructions* Patient Instructions* MARCELLE Perea - 04/27/2024 [...] used for breakthrough discomfort. documented in this encounterPemiscot Memorial Health [id number] Telephone encounter Note* Telephone Encounter - Fred Gracia NP - 04/27/2024 8:09 AM EST Please call to schedule pt a fu appt in the next month [place] [facility] [id number] Miscellaneous Notes* Telephone Encounter - Fred Gracia NP - 04/27/2024 8:09 AM EST Please call to schedule pt a fu appt in the next month [place] documented in this encounterPemiscot Memorial Health [id number] Telephone encounter Note* Telephone Encounter - [facility] - 03/09/2024 2:42 PM EDT Patient stated [...] her ass she's doing itand hung up. [facility] [id number] Miscellaneous Notes* Telephone Encounter - [facility] - 03/09/2024 2:42 PM EDT Patient stated [...] doing itand hung up. documented in this [facility]10-17-2024 History of Present illness Narrative* Fred Gracia [...] hours as needed for shoulder surgical pain., [employer] #72, 167.7, cm, 02/05/24 11:09:00 EDT, [...] Date Abnormal CBC 07/30/2023 Anxiety and depression ([facility]) Carpal tunnel syndrome 2002 Chronic diarrhea Chronic shoulder pain 05/01/2023 Class 3 severe obesity without serious comorbidity with body mass index (BMI) of 45.0 to 49.9 in adult ([facility]) 04/30/2023 Constipation Depression ([facility]) Hot flashes 07/30/2023 Hyperlipidemia, acquired ([facility]) 07/30/2023 Hypertension ([facility]) Knee pain, left anterior Major depression ([facility]) Morbid obesity with BMI of 40.0-44.9, adult ([facility]) Multiple sclerosis ([facility]) Night sweats 07/30/2023 LORENZO (obstructive sleep apnea) 07/30/2023 Pain of left middle finger Primary insomnia Rash Rectal burning Right knee pain, unspecified chronicity Sinusitis Stroke ([facility]) 07/30/2023 Urinary incontinence in female Vaginal discharge Vitamin D deficiency Past Surgical History: Procedure Laterality Date CARPAL TUNNEL RELEASE Right 2004 ECTOPIC SURGERY HYSTERECTOMY 1991 SHOULDER SURGERY Left 02/10/2024 Arthroscopy, RCR @ [facility] w/ MTP TUBAL LIGATION 1990 family [...] Relevant Orders Flu vaccine, MDCK, quadrivalent, PF (TSM182) (Flucelvax single dose syringe) Candidiasis of skin D/t her arm being in a sling, she is requesting we use nystatin powder as cream and ointment is notsomething she can properly use at this time Relevant Medications nystatin (Mycostatin) 696521 UNIT/GM powder documented in this encounterPemiscot Memorial Health [id number] History of Present illness Narrative* Eliazar Brooks [...] of the findings were discussed at length. James removed. Pain controlled. Emotional with passing of spouse. Ice 2-3 three times a day for the next couple weeks. Sling for 2 more weeks. PT was sent [facility]'s Nitish large RC repair protocol. F/U will be in 2 months, prn if doing well. All questions answered. documented in this encounterPemiscot Memorial Health [id number] Telephone encounter Note* Telephone Encounter - [facility] - 02/14/2024 10:31 AM EDT MTP- PO Lt shoulder scope prob RCR [facility] 02/10/24 Patient called requesting a home health assistance, she states she has noone to help her I spoke with Naomi- with her type of surgery she will not qualify for any assistance. At this time we cannot order a home health assistance for her- Can you please call patient and inform her. [facility] [id number] Miscellaneous Notes* Telephone Encounter - Karol Erie - 02/14/2024 10:31 AM EDT MTP- PO Lt shoulder scope prob RCR [facility] 02/10/24 Patient called requesting a home health assistance, she states she has noone to help her I spoke with Naomi- with her type of surgery she will not qualify for any assistance. At this time we cannot order a home health assistance for her- Can you please call patient and inform her. documented in this encounterPemiscot Memorial Health [id number] Telephone encounter Note* Telephone Encounter - Priyanka Grossh - 02/13/2024 2:31 PM EDT Was wanting to know if she could stop taking the percocet, pain isn't that bad and she was wanting to take her trazodone. [facility] [id number] Miscellaneous Notes* Telephone Encounter - Priyanka Kim - 02/13/2024 2:31 PM EDT Was wanting to know if she could stop taking the percocet, pain isn't that bad and she was wanting to take her trazodone. documented in this encounterPemiscot Memorial Health [id number] Hospital Discharge instructions Patient Education 02/10/2024 15:39:49 Shoulder Cryocuff Patient Instructions - FT (CUSTOM) 02/10/2024 15:39:45 Post Op Patient Instructions - FT (CUSTOM) 02/06/2024 18:01:14 Brooks - After Your Shoulder Arthroscopy (Revised 06/17/14) (CUSTOM) [place], [place] [facility] AFTER YOUR SHOULDER ARTHROSCOPY [...] your appointment. Eliazar Brooks, DO [facility] [address] [place] [id number] Reviewed: 1-15 Follow Up Care 12/24/2023 11:37:06 With:YUE Santamaria Address: [address] [place] [phone] (1) When:02/25/2024 14:30:00 Comments:Keep scheduled appointmentCall for any problems. [facility] 09-23-2024 Evaluation + Plan noteExtracted from:Title: ANES Post-operative Note---GeneralAuthor:Mynor Enriquez MDDate:02/10/24 Plan Transfer/Discharge: Transfer/Discharge Discharge when meets criteria ( To home ). Extracted from:Title:ANES Pre-operative Note uthor:Mynor Enriquez MDDate: 02/10/24 Plan [place] [employer]hesi[employer] (ASA) physical status classification: Class III. Anesthetic Preoperative Plan: Anesthesia General, and LMA. [facility] block.[facility] 09-16-2024 History of Present illness Narrative* Fred Gracia [...] oren jackson at noms * Fred Gracia, KIRK - 02/03/2024 2:20 PM EDT Images from [...] Oral, 2 times daily, Take with food Wbebqfg-Jndcwdfoawp-Aulcocncmz (Breztri Aerosphere) 160-9-4.8 MCG/ACT aerosol 2 puffs, [...] Date Abnormal CBC 07/30/2023 Anxiety and depression ([facility]) Carpal tunnel syndrome 2002 Chronic diarrhea Chronic shoulder pain 05/01/2023 Class 3 severe obesity without serious comorbidity with body mass index (BMI) of 45.0 to 49.9 in adult ([facility]) 04/30/2023 Constipation Depression ([facility]) Hot flashes 07/30/2023 Hyperlipidemia, acquired ([facility]) 07/30/2023 Hypertension ([facility]) Knee pain, left anterior Major depression ([facility]) Morbid obesity with BMI of 40.0-44.9, adult ([facility]) Multiple sclerosis ([facility]) Night sweats 07/30/2023 LORENZO (obstructive sleep apnea) 07/30/2023 Pain of left middle finger Primary insomnia Rash Rectal burning Right knee pain, unspecified chronicity Sinusitis Stroke ([facility]) 07/30/2023 Urinary incontinence in female Vaginal [...] (Augmentin) 875-125 MG tablet documented in this encounterPemiscot Memorial Health [id number] History of Present illness Narrative* Renuka Bui [...] Anxiety and depression (CMS/HCC) Carpal tunnel syndrome 2003 Chronic diarrhea Chronic shoulder pain 05/01/2023 Class 3 severe obesity without serious comorbidity with body mass index (BMI) of 45.0 to 49.9 in adult (CMS/HCC) 04/30/2023 Constipation Depression (CMS/HCC) Hot flashes 07/30/2023 Hyperlipidemia, acquired (CMS/HCC) 07/30/2023 Hypertension (CMS/HCC) Knee pain, left anterior Major depression (CMS/HCC) Morbid obesity with BMI of 40.0-44.9, adult (CMS/HCC) Multiple sclerosis (CMS/HCC) Night sweats 07/30/2023 LORENZO [...] 2 puffs, Inhalation, Every 6 hours PRN Sdzhnmh-Ottxocsstqw-Ojdqfjgkyx (Breztri Aerosphere) 160-9-4.8 MCG/ACT aerosol 2 puffs, [...] shoulder. Eliazar Brooks D.O. documented in this encounterPemiscot Memorial Health [id number] Telephone encounter Note* Telephone Encounter - Michelle Lujan - 01/17/2024 12:20 PM EDT Called patient back to let her know that Jessica's preference is for the patient to remain at [facility] ifshe is to order the medication. Patient said she would establish care with local neurologist. [facility]08-30-2024 Miscellaneous Notes* Telephone Encounter - Michelle [...] patient: Self Return call phone number : [phone] Reason for call : Other : Brief description of concern :Please fax infusion orders to [phone] [facility]. documented in this encounterC[facility]08-27-2024 Telephone encounter Note * Telephone Encounter - Miri Soni - 01/14/2024 2:09 PM EDT Kriss Call Name of caller : Anupama Vasquez Relationship to patient: Self Return call phone number : [phone] Reason for call : Other : Brief description of concern :Please fax infusion orders [facility] [phone] [facility] Work Phone: [phone] Telephone encounter Note* Telephone Encounter - She Hernandez - 12/19/2023 8:22 AM EDT Called patient [...] to call if she changes her mind. [facility]08-01-2024 Miscellaneous Notes* Telephone Encounter - She Hernandez - 12/19/2023 8:22 AM EDT Called patient [...] she changes her mind. documented in this encounterCleveland Clinic Med[facility]04-19-2024 NoteHNO ID: [id number] Author: LASHAUN VASQUEZ PA-C Service: ? Author Type: Physician Machine Shorthand Reporter Type: Progress Notes Filed: 09/06/2023 10:11 Note Text: SPINE SURGERY OUTPATIENT CONSULT This is a virtual visit using [employer] Video Visit. It required patient-provider interaction for the medical decision making as documented below. I have communicated my name and active licensure. The patient's identity and physical location were verified at the time of this visit. Either the patient or their legal front office representative has been informed of the risks and benefits of -- and alternatives to -- treatment through a remote evaluation and consents to proceed with the evaluation remotely. SERVICE DATE: 09/06/2023 PCP: Valdez Acosta MD REFERRING PROVIDER: Jessica Clarke [address] [facility] [facility] [id number] Consult requested for an opinion regarding the [...] in the past as well. Works with [employer] for her MS. Saw an outside orthopedic [...] Function Percentile 7 1 (more content not included)...[facility]04-19-2024 History of Present illness Narrative* Lashaun Vasquez PA-C - 09/06/2023 9:41 AM EDT SPINE SURGERY OUTPATIENT CONSULT This is a virtual visit using [employer] Video Visit. It required patient- provider interaction for the medical decision making as documented below. I have communicated my name and active licensure. The patient's identity and physical location wereverified at the time of this visit. Either the patient or their legal front office representative has been informed of the risks and benefits of -- and alternatives to -- treatment through a remote evaluation andconsents to proceed with the evaluation remotely. SERVICE DATE: 09/06/2023 PCP: Valdez Acosta MD REFERRING PROVIDER: Jessica Clarke [id number] [facility] [id number] Consult requested for an opinion regarding the [...] in the past as well. Works with [employer] for her MS. Saw an outside orthopedic [...] DATA REVIEW [facility] records independently reviewed ASSESSMENT/PLAN (R23.178) Left arm weakness (primary encounter diagnosis) Virtual [...] TIME: 9:41 AM PAGER: documented in this encounterCleveland [facility]04-09-2024 NoteHNO ID: [id number] Author: ANISHA SANCHEZ PA-C Service: ? Author Type: Physician Machine Shorthand Reporter Type: Progress Notes Filed: 08/27/2023 11:37 Note [...] from ongoing conservative management. BMI 47.78 [facility] History of Present illness Narrative* Anisha [...] Health Provider or Pain Management Provider at [facility]? No If answer is YES [...] the facility where the MRI/CT/myelogram was completed: [facility] Address: [address] [place] [address] MRI/CT/myelogram viewable in [facility]: Yes If not, please provide [phone] to fax in imaging reports for review. [...] where the surgery was completed: Additional Comments [phone] (Home Phone) documented in this encounterCleveland Clinic Medina Hospital04-04-2024 NoteHNO ID: [id number] Author: ?, ?, ? Service: ? Author Type: ? Type: Progress Notes Filed: 08/27/2023 11:37 Note Text: Patient name: Anupama Vasquez Are you being referred by a [facility] for Spine Health Provider or Pain Management Provider at [facility]? No If answer is YES [...] the facility where the MRI/CT/myelogram was completed: [facility] Address: [address] [place] [address] MRI/CT/myelogram viewable in [facility]: Yes If not, please provide [phone] to fax in imaging reports for review. [...] where the surgery was completed: Additional Comments [phone] (Home Phone)[facility]04-03-2024 Miscellaneous Notes* Telephone Encounter - Renuka Ellison - 08/21/2023 4:17 PM EDT Kriss Call Name of caller : Anupama Vasquez Relationship to patient: Self Return call phone number : [phone] Reason for call : Other : Brief [...] call to discuss further. documented in this encounterCleveland Clinic Medina Hospital02-28-2024 Miscellaneous Notes* Telephone Encounter - Elizabeth Victoria RN - 07/17/2023 9:04 AM EST Called patient, no answer. Message left indicating [employer] message would be sent with reason for [...] since c-spine MRI was completed locally outside [facility] in April. Orders already placed * Telephone Encounter - Anjelica Alba - 07/15/2023 3:18 PM EST Kriss Call Name of caller : Steffanie Relationship to patient: Caregiver Return call phone number : appointments Reason for call : Order for MRI needed for Brain and Cervical documented in this encounterCleveland Clinic Medina Hospital02-21-2024 History of Present illness Narrative* Paris Toledo DO - 07/10/2023 6:00 PM EST [facility] Initial Evaluation July 10, 2023 This appointment was requested by Jessica Clarke PA-C, for my medical opinion regarding the evaluation and management of the patient's Anupama Vasquez problems, and my final recommendations will be communicated to the requesting health care provider by way of the shared medical record for internal providers or letter via the [employer] for external providers. SUBJECTIVE: Anupama Vasquez a 53 year old [facility], accompanied by self [...] No history of dysuria, frequency or incontinence DIE DEVELOPER: Negative for abnormal vaginal bleeding, abnormal vaginal [...] supervised home exercise program (HEP): No 5. Marketing Research Analyst: No Passive conservative therapy lasting 6 weeks [...] edited as needed and is complete. Paris Pedraza ParisDO glenny July 10, 2023 Physical Examination: Pulse 89 [...] which included preparing to see the patient, [id number] patient care, completing clinical documentation, performing a medically appropriate examination, counseling and educating the patient/family/caregiver, ordering medications, tests, or p rocedures, and communicating with other HCPs (not separately reported). Paris Toledo DO July 10, 2023 documented in this encounterCleveland Clinic Medina Hospital02-21-2024 NoteHNO ID: [id number] Author: PARIS TOLEDO DO Service: ? Author Type: Physician Type: Progress Notes Filed: 07/12/2023 11:26 Note Text: [facility] Initial Evaluation July 10, 2023 This appointment was requested by Jessica Clarke PA-C, for my medical opinion regarding the evaluation and management of the patient's Anupama Vasquez problems, and my final recommendations will be communicated to the requesting health care provider by way of the shared medical record for internal providers or letter via the [employer] for external providers. SUBJECTIVE: Anupama Vasquez a 53 year old [facility], accompanied by self [...] (MS) PT several years ago (+) relief [facility] Alcohol Abuse - No Drug Abuse - [...] No history of dysuria, frequency or incontinence DIE DEVELOPER: Negative for abnormal vaginal bleeding, abnormal vaginal discharge MUSCULOSKELETAL: Negative for joint pain or swelling, back pain or muscle pain. NEUROLOGIC:Negative for focal numbness or weakness, headaches and dizziness or syncope. SKIN:Negative for lesions, rash, and itching. PSYCHIATRIC: Negative for sleep disturbance, mood disorder and recent psychosocial stressors. [place] (more content not included)...[facility]02-07-2024 History of Present illness Narrative* [...] 8 weeks (around 08/21/2023). documented in this encounterPemiscot Memorial Health [id number] NoteHNO ID: [id number] Author: She Brand RN Service: ? Author [...] ; pt states she had her tubes tied.[facility]12-14-2023 History of Present illness Narrative* Jessica Clarke PA-C - 05/02/2023 7:30 AM EST Images from the original note were not included. [facility] FOLLOW[facility]/ESTABLISHED PATIENT VIRTUAL [...] visit. Either the patient or their legal front office representative has been informed of the risks [...] Flowsheet Row Office Visit from 03/22/2022 in [facility] Office Visit from 11/14/2021 in [facility] Distance Health from 09/15/2021 in [facility] Upper Extremity Domain T Score 32.58 -- [...] Flowsheet Row Office Visit from 03/22/2022 in [facility] Office Visit from 11/14/2021 in [facility] Distance Health from 09/15/2021 in [facility] Sleep Domain T Score 61.04 -- 64 [...] which included preparing to see the patient, [id number] patient care, completing clinical documentation, obtaining and/or reviewing separately obtained history, counseling and educating the patient/family/caregiver, ordering medications, manuel ts, or procedures, communicating with other HCPs (not separately reported), and communicating results to the patient/family/caregiver. The patient was discussed with Dr. Escobar prior to appointment. Jessica Clarke PA-C documented in this encounterCleveland Clinic Medina Hospital12-14-2023 NoteHNO ID: [id number] Author: Jessica Clarke PA-C Service: ? Author Type: Physician Machine Shorthand Reporter Type: Progress Notes Filed: 05/02/2023 5:39 PM Note Text: [facility] MULTIPLE SCLEROSIS FOLLOWUP/ESTABLISHED PATIENT VIRTUAL [...] visit. Either the patient or their legal front office representative has been informed of the risks [...] Flowsheet Row Office Visit from 03/22/2022 in [facility] Office Visit from 11/14/2021 in [facility] Distance Health from 09/15/2021 in [facility] Upper Extremity Domain T Score 32.58 -- [...] Flowsheet Row Office Visit from 03/22/2022 in [facility] Office Visit from 11/14/[address] [facility] from 09/15/2021 in [facility] Sleep Domain T Score 61.04 -- 64 [...] spent a total of (more content not included)...[facility] 04-18-2022 Evaluation note* Encounter Date Diagnosis Assessment Notes Treatment Notes Treatment Clinical Notes Mar, Change in bowel function (ICD-10 - R19.4) CONTINUE METAMUCIL DIRECTED RTO 1 YR [employer] Other 11-11-2022 Miscellaneous Notes* Telephone Encounter - Lily Rich Pss - 03/30/2022 2:06 PM EST Patient is calling today and would like to inform that she has a new PCP. Would like to ask that Dr Acosta be removed. She now sees a Dr Fred Arteaga in [place]. Any questions please call patient at [phone] documented in this encounterCleveland Clinic Medina Hospital11-03-2022 History of Present illness Narrative* Jessica Clarke PA-C - 03/22/2022 12:40 PM EDT Images from the original note were not included. [facility] FOLLOW[facility]/ESTABLISHED PATIENT VISIT [...] ago and hands locked up when at [employer] (Mar 03) Trying to go for walks (uses cane) Has some new friends, which has been helpful Still gets frustrated with limitations SUBJECTIVE & REVIEW OF SYSTEMS: Neuro-QoL Functions (higher=better functioning) Flowsheet Row Office Visit from 03/22/2022 in [facility] Office Visit from 11/14/2021 in [facility] Distance Health from 09/15/2021 in [facility] Upper Extremity Domain T Score 32.58 -- [...] Flowsheet Row Office Visit from 03/22/2022 in [facility] Office Visit from 11/14/[address] [facility] from 09/15/2021 in [facility] Sleep Domain T Score 61.04 -- 64 Fatigue Domain T Score 58.38 -- 65 Anxiety Domain T Score 58.73 -- 61 Depression Domain T Score 60.06 58 60 Stigma Domain T Score 58.45 -- 57 Emotional Behavior Dyscontrol T Score -- -- -- *NeuroQoL is a multi-domain patient-reported quality of life questionnaire. PHQ-9 Flowsheet [facility] from 09/15/2021 in [facility] Office Visit from 11/01/2020 in [facility] PHQ-9 Score 11 16 *PHQ-9 is a questionnaire for depressive symptoms, with scores 0-4 indicating none, 5-9 mild, 10-14moderate, 15-19 moderately severe, and 20-27 severe symptoms. PROMIS-10 Flowsheet Row OT/PT/Speech Visit from 01/16/2022 in [facility] Occupational Therapy [facility] from 09/15/2021 in [facility] Global Physical Health T Score 32.4 32.4 [...] 5 Biceps 5 5 Triceps 5 5 Instructional Systems Design Consultant 5 5 Dorsal interossei 5 5 Lower [...] and Stretching Follow-up: In 6 months at [facility] I spent a total of 30 minutes on the date of the service which included preparing to see the patient, zlbj-iv-mvya patient care, completing clinical documentation, obtaining and/or reviewing separately obtained history, performing a medically appropriate examination, counseling and educating the pat ient/family/caregiver, ordering medications, tests, or procedures, and communicating results to thepatient/family/caregiver. Jessica Clarke PA-C The chart was reviewed for possible participation in the following studies:None documented in this encounterCleveland Clinic Medina Hospital10-18-2022 History of Present illness Narrative* Lizbeth [...] Care Gap or Scheduling/Wellness visits Payer: Payor: [facility] MEDICAID / Plan: [facility] PLAN MEDICAID OF [place] / [...] 06, 2022 4:06 PM documented in this encounterCleveland Clinic Medina Hospital09-26-2022 Miscellaneous Notes* Telephone Encounter - Jaycee Haley - 02/12/2022 9:08 AM EDT Called pt LVM to see about setting up pt and psycology. 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; 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; Workers Comp?: NA Duties and responsibilities: [...] WFL Ankle Dorsiflexion WFL WFL STRENGTH: Anupama Ayleen Vasquez is right-handed RIGHT LEFT Shoulder Abd 4/09 20/5 Shoulder Flexion 08/225 Elbow Flexion 09/21 55 Elbow extension 09/21 09/21 Wrist flexion 09/21/ Wrist extension 09/21 09/21 Instructional Systems Design Consultant strength (Alexis position 2) 70 lbs 53 lbs Hip abduction 09/21 09/21 Hip flexion 4-/5 4-/5 Hip extension 09/21 09/21 Knee extension 09/21 09/21 Knee flexion 09/21 09/21 Ankle DF 09/21 09/21 Ankle PF 09/21 09/21 MODIFIED MIGDALIA SCALE: plantar flexor: RT: 0 [...] from floor: 4 = able to picking tech object safely and easily Looking over shoulder: [...] test: Right 24.13, 23.06 seconds; CV = 0.39440% Left 22.41, 26.54 seconds; CV = 0.06593% Norms for a 51 year old female [...] 60 35 YES Valid YES Valid Right analytical manager best result: 80 lbs; percentile rank = 75 % Left analytical manager best result: 78 lbs; percentile rank = 90 % Tremors?: No Hand Instructional Systems Design Consultant Norms: MALE Percentile - lbs. 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 X Agree Disagree 2. In a [...] 8 units: 113-127 mins Physical Performance Test (35104) Skilled Intervention: Neurologically-based functional capacity evaluation specific to the diagnosisof Multiple Sclerosis. Proper administration and selection of physical performance test based on clinical presentation, deficits, and needs. Jojo Pickard OTR/L documented in this encounterCleveland Clinic Medina Hospital07-27-2022 Evaluation note* Encounter Date Diagnosis Assessment Notes Treatment Notes Treatment Clinical Notes Nov, Change in bowel function (ICD-10 - R19.8) ENCOURAGED METAMUCIL CAPSULES DAILY. Nov,Tubular adenoma (ICD-10 - D36.9)WILL REPEAT COLON IN 5 YEARS Nov,iverticulosis (ICD-10 - K57.90) Nov,Hemorrhoids (ICD-10 - K64.9) [employer] Other 06-28-2022 History of Present illness Narrative* Sarthak Escobar MD, PhD - 11/14/2021 8:31 AM EDT Images from the original note were not included. [facility] FOLLOW[facility]/ESTABLISHED PATIENT VISIT [...] (higher=better functioning) Office Visit from 11/14/[address] [facility] from 09/15/2021 in [facility] OfficeVisit from 11/01/2020 in [facility] Upper Extremity Domain T Score 34 30 Lower Extremity Domain T Score 37 40 Cognitive Function Domain T Score 39 41 36 Positive Affect Well Being T Score Ability To Participate In Social Roles T Score 39 43 46 Satisfaction With Social Roles T Score 36 39 Neuro-QoL Symptoms (higher=worse symptoms) Office Visit from 11/14/[address] [facility] from 09/15/2021 in [facility] OfficeVisit from 11/01/2020 in [facility] Sleep Domain T Score 64 64 Fatigue Domain T Score 65 69 Anxiety Domain T Score 61 65 Depression Domain T Score 58 60 66 Stigma Domain T Score 57 63 Emotional Behavior Dyscontrol T Score *NeuroQoL is a multi-domain patient-reported quality of life questionnaire. PHQ-9 Distance Health from 09/15/2021 in [facility] Office Visit from 11/01/2020 in [facility] PHQ-9 Score 11 16 *PHQ-9 is a questionnaire for depressive symptoms, with scores 0-4 indicating none, 5-9 mild, 10-14moderate, 15-19 moderately severe, and 20-27 severe symptoms. PROMIS-10 [facility] from 09/15/2021 in [facility] Office Visit from 11/01/2020 [facility] Global Physical Health T Score 32.4 [...] 5 Biceps 5 5 Triceps 5 5 Instructional Systems Design Consultant 5 5 Dorsal interossei 5 5 Lower [...] Lymph 1.00 - 4.00 k/uL 0.60 (L) [place]% % 12.0 Abs [place] <0.87 k/uL 0.74 Eosin% % 2.4 Abs [...] 7T brain MRI in 3 months at [place]. Will hold next infusion until reviewing MRI. [...] and Stretching Follow-up: In 3 months at [place] with [facility] I spent a total of 40 minutes on the date of the service which included preparing to see the patient, psjt-rn-[id number] patient care, completing clinical documentation, obtaining and/or reviewing separately obtained history, performing a medically appropriate examination, counseling and educating the pat ient/family/caregiver, ordering medications, tests, or procedures, independently interpreting results (not separately reported) and communicating results to the patient/family/caregiver. The patient was discussed with Dr. Escobar. Jessica Clarke PA-C [facility] STAFF PHYSICIAN NOTE OF [...] Sarthak Escobar MD, PhD Associate Staff Neurologist [facility] for Multiple Sclerosis documented in this encounterCleveland Clinic Medina Hospital06-28-2022 History of Present illness Narrative* Eliazar Gupta, RT(R) - 11/14/2021 7:30 AM EDT Radiology [...] Exam(s) Completed: Head: Multiple Sclerosis SIGNATURE: RT [place](Jose) PATIENT NAME: Anupama Vasquez DATE: November 14, 2021 TIME: 7:43 AM documented in this encounterCleveland Clinic Medina Hospital04-29-2022 History of Present illness Narrative* Jessica Clarke PA-C - 09/15/2021 11:19 AM EDT Images from the original note were not included. [facility] FOLLOWUP/ESTABLISHED PATIENT VIRTUAL VISIT PRINCIPAL NEUROLOGIC DIAGNOSIS: multiple sclerosis DISEASE SUMMARY Date of onset: October 2011 Date of diagnosis of MS: June 2012 Disease course at onset: Relapsing-Remitting Current disease course: Relapsing-Remitting Previous disease therapies: Tecfidera (02/04/2013 - July 2016) - stopped due to persistent lymphopenia Sanketgio August 2016- Apr 2020 Current disease therapy: [...] - mood worse Fred Gracia is new CARDIOLOGY FELLOW PCP - changed anxiety and depression meds [...] neurologist locally. Asking about switching infusions to [facility] REVIEW OF SYSTEMS: Mood: PHQ9 responses reviewed and appear below Bladder: colonoscopy recently Pain:reviewed on nursing intake documentation Neuro-QoL Functions (higher=better functioning) Appointment from 09/15/2021 in [facility] Office Visit from 11/01/2020 in [facility] Office Visit from 07/31/2019 in [facility] Upper Extremity Domain T Score 34 30 41.73 Lower Extremity Domain T Score 37 40 41.61 Cognitive Function Domain T Score 41 36 45 Positive Affect Well Being T Score 40.79 Ability To Participate In Social Roles T Score 43 46 39.92 Satisfaction With Social Roles T Score 36 39 43.36 Neuro-QoL Symptoms (higher=worse symptoms) Appointment from 09/15/2021 in [facility] Office Visit from 11/01/2020 in [facility] Office Visit from 07/31/2019 in [facility] Sleep Domain T Score 64 64 64.93 [...] available 4. Consult OT - [facility] at [place] 5. Continue with PCP as planned I spent a total of 20 minutes on the date of the service which included preparing to see the patient, jmig-gd-hxuu patient care, completing clinical documentation, obtaining and/or reviewing separately obtained history, counseling and educating the patient/family/caregiver, ordering medications, manuel ts, or procedures and communicating results to the patient/family/caregiver. Jessica Clarke PA-C documented in this encounterSamuel Ville [address]-19-2022 Procedure noteKettering [facility]03-28-2022 Evaluation note* Encounter Date Diagnosis Assessment Notes Treatment Notes Treatment Clinical Notes Jul, Constipation (ICD-10 - K59.00) Jul,ectal bleeding (ICD-10 - K62.5) Jul,ectal pain (ICD-10 - K62.89) Sample of Recticare cream given to patient Jul,2Change in stool caliber (ICD-10 - R19.4) [employer] Other Evaluation + Plan note Future Appointments Appointment Date:02/10/2024 03:00:00 PM Scheduled Provider: Location:[facility] Surgical Services Appointment Type:Surgery [facility] Evaluation + Plan note Future Appointments Appointment Date:02/17/2025 08:30:00 AM Scheduled Provider:Silvia Bustos PA-C Location:[facility] Appointment Type:URO Office Visit [facility] evaluation + Plan note Future Appointments Appointment Date:05/25/2025 10:40:00 AM Scheduled Provider:Silvia Bustos PA-C Location:[facility] Appointment Type:URO Office Visit [facility] evaluation noteNo assessment information available [facility] Work Phone: evaluation note* Diagnosis Multiple sclerosis, relapsing-remitting (HCC) Multiple sclerosis documented in this encounter [facility]* Diagnosis Multiple sclerosis (HCC)- Primary Multiple sclerosis Multiple sclerosis, relapsing-remitting (HCC) Multiple sclerosis documented in this encounter [facility] noteNo InformationNort [employer] Other evaluaonna note* Diagnosis Multiple sclerosis, relapsing-remitting (HCC) Multiple sclerosis documented in this encounter [facility] note* Diagnosis Multiple sclerosis, relapsing-remitting (HCC)- Primary Multiple sclerosis documented in this encounter [facility] note* Diagnosis Encounter for screening mammogram for breast cancer documented in this encounter [facility]* Diagnosis Multiple sclerosis, relapsing-remitting (HCC) Multiple sclerosis [facility]* Diagnosis Multiple sclerosis (HCC)- Primary Multiple sclerosis [facility]* Diagnosis Multiple sclerosis, relapsing-remitting (HCC)- Primary Multiple sclerosis [facility]* Diagnosis Multiple sclerosis, relapsing-remitting (HCC)- Primary Multiple sclerosis [facility]* Diagnosis Encounter for screening mammogram for breast cancer [facility] [facility] Diagnosis Multiple sclerosis (HCC)- Primary [facility] sclerosis [facility] Diagnosis Multiple sclerosis (CMS/HCC)- Primary Multiple sclerosis Primary hypertension (CMS/HCC) Unspecified essential hypertension Anxiety and depression (CMS/HCC) COPD with exacerbation (CMS/HCC) Non-recurrent acute suppurative otitis media of left ear without spontaneous rupture of tympanic membrane [facility] Diagnosis Cervical disc disorder with radiculopathy- Primary Brachial neuritis or radiculitis nos Cervical stenosis of spine Spinal stenosis in cervical region Chronic neck pain Cervicalgia documented [facility] Diagnosis Multiple sclerosis (HCC)- Primary Multiple sclerosis [facility] Diagnosis Cervical stenosis of spine- Primary Spinal stenosis in cervical region documented in this encounter [facility]* Diagnosis Left arm weakness- Primary Other musculoskeletal symptoms referable to limbs [facility] Diagnosis Multiple sclerosis (HCC)- Primary Multiple sclerosis Vitamin D deficiency Unspecified vitamin D deficiency [facility] Diagnosis S/P arthroscopy of left shoulder- Primary [facility] Diagnosis S/P arthroscopy of left shoulder [facility] Diagnosis Class 3 severe obesity without [...] and depression (CMS/HCC) documented in this encounter [facility]* Diagnosis Pre-op testing- Primary Unspecified pre-operative examination Rotator cuff impingement syndrome of left shoulder documented in this encounter [facility]* Diagnosis Diverticulitis- Primary Diverticulitis of colon (without mention of hemorrhage) Class 3 severe obesity without serious comorbidity with body mass index (BMI) of 45.0 to 49.9 in adult, unspecified obesity type (CMS/HCC) documented in this encounter [facility]* Diagnosis Class 3 severe [...] of left shoulder documented in this encounter [facility]* Diagnosis Multiple sclerosis (CMS/HCC)- [...] frontal sinusitis- Primary documented in this encounter [facility]* Diagnosis Class 3 severe [...] (male)(female) Yeast dermatitis documented in this encounter [facility]* Diagnosis Dermatitis associated with moisture- Primary Pressure injury of left buttock, stage 2 (CMS-HCC) [facility] Diagnosis Altered mental status, [...] anxiety disorder with panic attacks Multiple sclerosis (CMS-HCC) Multiple sclerosis documented in [facility] Diagnosis Brain tumor ([facility]-HCC)- Primary Neoplasm of unspecified nature of brain Double vision Diplopia [facility] Diagnosis Glioblastoma (CMS-HCC)- Primary Malignant neoplasm of brain, unspecified site [facility] Diagnosis GBM (glioblastoma multiforme) (CMS-HCC)- Primary Malignant neoplasm of brain, unspecified site [facility]* Diagnosis GBM (glioblastoma multiforme) (CMS-HCC)- Primary Malignant neoplasm of brain, unspecified site documented [facility]* Diagnosis GBM (glioblastoma multiforme) (CMS-HCC)- Primary Malignant neoplasm of brain, unspecified site documented [facility]* Diagnosis GBM (glioblastoma multiforme) (CMS-HCC)- Primary Malignant neoplasm of brain, unspecified site Thrombocytopenia Unspecified thrombocytopenia documented [facility]* Diagnosis GBM (glioblastoma multiforme) (CMS-HCC)- Primary Malignant neoplasm of brain, unspecified site Thrombocytopenia Unspecified thrombocytopenia documented in [facility]* Diagnosis GBM (glioblastoma multiforme) (CMS-HCC)- Primary Malignant neoplasm of brain, unspecified site documented in this [facility]* Diagnosis GBM (glioblastoma multiforme) (CMS-HCC) Malignant neoplasm of brain, unspecified site documented in this [facility]* Diagnosis GBM (glioblastoma multiforme) (CMS-HCC)- Primary Malignant neoplasm of brain, unspecified site documented in this [facility]* Diagnosis GBM (glioblastoma multiforme) (CMS-HCC)- Primary Malignant neoplasm of brain, unspecified site documented in this [facility] Narrative - Reported* Type Description Date Surgical History ectopic Surgical Historytubal ligationSurgical Historycaprpal tunnel release [employer] Other History general Narrative - Reported* Type Description Date Surgical History ectopic Surgical Historytubal ligationSurgical Historycaprpal tunnel release Hospitalization Historysee above [employer] Other Hospital course Narrative No data available for this section [facility] Hospital Discharge instructions No data available for this section [facility] InstructionsNot on filedocumented in this [...] note No data available for this section [facility] Reason for referral (narrative)* Diagnostic Procedure Only (Routine) - Pending ReviewSpecialtyDiagnoses / ProceduresReferred By ContactReferred To ContactBR IMAGING Diagnoses Encounter for screening mammogram for breast cancer Procedures ALIYA SCREENING SCREENING MAMMOGRAPHY BI 2-VIEW BREAST INC CAD Valdez Acosta MD [address] [place] [address] Br Imaging [address] [place] [phone] Referral IDStatusReasonStart DateExpiration DateVisits RequestedVisits [id number] Review Auto-Generated Referral [facility] for referral (narrative)* Diagnostic Procedure Only (Routine) - Pending ReviewSpecialtyDiagnoses / ProceduresReferred By Contact Referred To ContactBR IMAGING Diagnoses Encounter for screening mammogram for breast cancer Procedures ALIYA SCREENING SCREENING MAMMOGRAPHY BI 2-VIEW BREAST INC CAD Valdez Acosta MD [address] [place] [address] [facility] [address] [place] [address] Referral IDStatusReasonStart DateExpiration DateVisits RequestedVisits [id number] Review Auto-Generated Referral [facility] for referral (narrative)* Consultation (Routine)Specialty Diagnoses / ProceduresReferred By ContactReferred To ContactNeurology [address] [address] Aron Chinchilla MD [address] [facility] [address] [place] [address] Referral IDStatusReasonStart DateExpiration DateVisits RequestedVisits Authorized Specialty Services Required [facility] for referral (narrative)No reason for referral information availableParkview Health Work Phone: Reason for visit NarrativeREFERRED BY FRED GRACIA FOR CONSTIPATION, (REFERRAL NOTE RECEIVED)[employer] Other Reason for visit Narrative* Rehabilitation - Outpatient (Routine) - AuthorizedSpecialtyDiagnoses / ProceduresReferred By ContactReferred To ContactPhysical Therapy Diagnoses S/P arthroscopy of left shoulder Procedures IA OFFICE/OUTPATIENT NEW HIGH MDM 60 MINUTES Eliazar Brooks, DO [address] [place] [address] Phone: tel: fax: Aria Kumar PT Referral IDStatusReasonStart DateExpiration DateVisits RequestedVisits [id number] Specialty Services Required [facility] Summary Purpose Family History Relationship Condition Age at Onset Recorded Date/T alethea father Malignant neoplasm of rectum Unknown Not SpecifiedHypertensionUnknownCerebrovascular accident (CVA)Unknownbrother Diabetes mellitusUnknownHeart diseaseUnknownsisterDiabetes mellitusUnknown Relationship Condition Age at Onset Recorded Date/T alethea father Malignant neoplasm of rectum Unknown motherHypertensionUnknownCerebrovascular accident (CVA)UnknownbrotherDiabetes mellitusUnknownHeart diseaseUnknownsisterDiabetes mellitusUnknownfatherDeceased UnknownmotherDeceasedUnknown Advance Directives Advance Directive Response Recorded Date/ Time Advance Directives No September 01, 2 022 8:00am Date ActivatedDate InactivatedComments08/28/2024 2:20 PM09/01/2024 6:45 PMDate ActivatedDate InactivatedComments09/19/2024 4:15 AMDate ActivatedDate Inactivated Comments08/28/2024 2:20 PM09/01/2024 6:45 PMDate ActivatedDate InactivatedComments 09/19/2024 4:15 AM09/29/2024 2:25 AMDate ActivatedDate InactivatedComments08/28/2024 2:20 PM09/01/2024 6:45 PMDate ActivatedDate InactivatedComments09/19/2024 4:15 AM 09/29/2024 2:25 AM Reason for Referral SpecialtyDiagnoses / ProceduresReferred By ContactReferred To ContactREHAB AND SPORTS THERAPY INS Diagnoses Multiple sclerosis, relapsing-remitting (HCC) Procedures CONSULT TO COLOR REPAIRER OCCUPATIONAL THERAPY EVAL HIGH COMPLEX 60 MINS Jessica Clarke PA-C [address] [place] [address] [facility] [address] [place] [address] Referral IDStatusReasonStart DateExpiration DateVisits RequestedVisits [id number] Review Auto-Generated Referral [id number] / ProceduresReferred By ContactReferred To Contact IMAGING Diagnoses Multiple sclerosis, relapsing-remitting (HCC) Procedures MRI BRAIN WO/W IVCON MRI BRAIN BRAIN STEM W/O W/CONTRAST MATERIAL Jessica Clarke PA-C [address] [place] [address] Mr Imaging Referral IDStatusReasonStart DateExpiration DateVisits RequestedVisits [id number] Review Auto-Generated Referral 1Referral IDStatusReasonStart DateExpiration DateVisits RequestedVisits [id number] Auto-Generated Referral [id number] / ProceduresReferred By ContactReferred To Contact IMAGING Diagnoses Multiple sclerosis, relapsing-remitting (HCC) Procedures MRI BRAIN WO/W IVCON MRI BRAIN BRAIN STEM W/O W/CONTRAST MATERIAL Sarthak Escobar MD, PhD [address] [place] [id number] Mr Imaging Referral IDStatusReasonStart DateExpiration DateVisits RequestedVisits [id number] Review Auto-Generated Referral [id number] / ProceduresReferred By ContactReferred To Contact IMAGING Diagnoses Multiple sclerosis, relapsing-remitting (HCC) Procedures MRI CERVICAL SPINE WO/W IVCON MRI SPINAL CANAL CERVICAL W/O & W/CONTR MATRL Jessica Clarke PA-C [address] [place] [address] Mr Imaging Referral IDStatusReasonStart DateExpiration DateVisits RequestedVisits [id number] Review Auto-Generated Referral 1Referral IDStatusReasonStart DateExpiration DateVisits RequestedVisits [id number] Review Auto-Generated Referral /[id number] / ProceduresReferred By ContactReferred To ContactREHAB AND SPORTS THERAPY INS Diagnoses Cervical disc disorder with radiculopathy Procedures CONSULT TO PHYSICAL THERAPY PHYSICAL THERAPY EVALUATION HIGH COMPLEX [address] [place], [place] [address] [place] [address] [facility] [address] [place] [address] Referral IDStatusReasonStladora DateExpiration DateVisits RequestedVisits [id number] Review Auto-Generated Referral /[id number] / ProceduresReferred By ContactReferred To ContactMR IMAGING Diagnoses Multiple sclerosis (HCC) Procedures MRI BRAIN WO/W IVCON MRI BRAIN BRAIN STEM W/O W/CONTRAST MATERIAL Jessica Clarke PA-C [address] [place] [address] Mr Imaging [place] [address] Referral IDStatusReasonStladora DateExpiration DateVisits RequestedVisits [id number] Review Auto-Generated Referral /[id number] / ProceduresReferred By ContactReferred To Contact Diagnoses Cervical stenosis of spine Procedures CONSULT TO SPINE SURGERY OFFICE/OUTPATIENT [facility] MDM 60 MINUTES Jessica Clarke PA-C [address] [place] [address] Referral IDStatusReasonStladora DateExpiration DateVisits RequestedVisits [id number] PCP Requested Referral /[id number] / ProceduresReferred By ContactReferred To ContactMR IMAGING Diagnoses Left arm weakness Procedures MRI CERVICAL SPINE WO IVCON MRI SPINAL CANAL CERVICAL W/O CONTRAST Lashaun Banda PA-C [address] [place] [address] Mr Imaging [place] [address] Referral IDStatusReasonStladora DateExpiration DateVisits RequestedVisits [id number] Review Auto-Generated Referral [id number] / ProceduresReferred By ContactReferred To ContactNEUROLOGICAL INSTITUTE Diagnoses Left arm weakness Procedures EMG(NEURO/NI) NERVE CONDUCTION STUDIES 9-10 STUDIES Lashaun Vasquez PA-C [address] [place] [address] Neu[facility] [address] [place] [address] Ref[facility] DateExpiration DateVisits RequestedVisits [id number] Review Auto-Generated Referral [id number] / ProceduresReferred By ContactReferred To ContactXR IMAGING Diagnoses Left arm weakness Procedures XR CERV OTHER 4V AP/LAT/FLX/EXT RADEX SPINE CERVICAL 4 OR 5 VIEWS Lashaun Vasquez PA-C [address] [place] [address] Xr Imaging [place] [address] Referral IDStatusReasonBend DateExpiration DateVisits RequestedVisits [id number] Review Auto-Generated Referral [id number] / ProceduresReferred By ContactReferred To ContactPhysical Therapy Diagnoses S/P arthroscopy of left shoulder Procedures IA OFFICE/OUTPATIENT [facility] 60 MINUTES Eliazar Brooks, DO [address] [place] [address] Aria Kumar PT Referral IDStatusHomeroStladora DateExpiration DateVisits RequestedVisits [id number] Review Specialty Services Required Assessments Findings Encounter Date Encounter for Immunization [...] discuss EGD/Co lonoscopy December 29, 2024 1:50pm Chief Complaint Admit Date Unknown October 17, 2024 9:45a m CKD 4 November 19, 2024 2:21p m Unknown November 27, 2024 8:36 pm Pt has cancer Dr wants to discuss EGD/Co lonoscopy December 29, 2024 1:50pm 6 week f/u January 14, 2025 1: 32pm Reason for Visit Admit Date BRANDON (acute kidney injury) November 19, 2024 2:21pm GBM (glioblastoma multiforme) November 19, 2024 2:21pm Hyperlipemia November 19, 2024 2:21p m Hypertension November 19, 2024 2:21p m Multiple sclerosis November 19, 2024 2:21p m History of colon polyps December 29 1:50pm BRANDON (acute kidney injury) January 14, 2 025 1:32pm GBM (glioblastoma multiforme) December 1:32pm Hyperlipemia January 14, 2025 1: 32pm Hypertension January 14, 2025 1: 32pm Multiple sclerosis January 14, 2025 1: 32pm Post-renal acute kidney injury January 142024 1:32pm Medications Administered Section Medication OrderMAR ActionAction DateDoseRateSite acetaminophen 1,000 mg tab(s) (TYLENOL) 1,000 mg, ORAL, ONCE, 1 dose, On Sat09/18/21 at 0800, No more than 4000 mg of acetaminophen should be given per day (FROM ALL SOURCES) Given09/18/2021 8:10 AM EDT1,000 mg diphenhydrAMINE 50 mg (BENADRYL) 50 mg, ORAL, ONCE, 1 dose, On Sat09/18/21 at 0800 Given09/18/2021 8:10 AM EDT50 mg methylPREDNISolone sod succinate(PF) 100 mg injection (SOLU-Medrol) 100 mg, INTRAVENOUS, ONCE, 1 dose, On Sat09/18/21 at 0800 Given09/18/2021 8:10 AM [id number] mg ocrelizumab (OCREVUS) in NaCl 0.9% Vial-Mate [...] filter. Refrigerate - Protect From Light. New Bag/Syringe/Gocxmn3709/18/2021 9:50 AM FJF989 mg300 mL/hrRate/Dose Change 09/18/2021 9:30 AM FXF841 mL/hrRate/Dose Zrwfeg1409/18/2021 9:00 AM BSX940 mL/hr Medication OrderMAR ActionAction DateDoseRateSite acetaminophen 1,000 mg tab(s) (TYLENOL) 1,000 mg, ORAL, ONCE, 1 dose, On Maribell 03/22/22 at 0800, No more than 4000 mg of acetaminophen should be given per day (FROM ALL SOURCES) Given03/22/2022 8:15 AM EDT1,000 mg diphenhydrAMINE 50 mg (BENADRYL) 50 mg, ORAL, ONCE, 1 dose, On Maribell 03/22/22 at 0800 Given03/22/2022 8:15 AM EDT50 mg methylPREDNISolone sod succinate(PF) 100 mg injection (SOLU-Medrol) 100 mg, INTRAVENOUS, ONCE, 1 dose, On Mar[place]ell 03/22/22 at 0800 Given03/22/2022 8:20 AM OWX357 mg ocrelizumab (OCREVUS) in NaCl 0.9% Vial-Mate 600 mg 500 mL 600 mg, INTRAVENOUS, ONCE, 1 dose, On Maribell 03/22/22 at 0800, Subsequent infusion. Start infusion at 100 mL/hour for 15 minutes, then increase to 200 mL/hour for 15 minutes, then increase to 250 mL/hourfor 30 minutes, then increase to 300 mL/hour for remainder of infusion. Maximum rate = 300mL/hour. APPROXIMATE TOTAL VOLUME: 560 mL For 300 mg doses, administer one 300 mg/250 mL bag. For 600 mg doses, administer two 300 mg/250 mL bags. Administer with 0.2 micron filter. Refrigerate - Protect From Light. New Bag/Syringe/Fttygt9703/22/2022 9:50 AM TKT079 mg300 mL/hrRate/Dose Change 03/22/2022 9:30 AM KCS768 mL/hrRate/Dose Odxuak9103/22/2022 9:00 AM BNX184 mL/hr Additional Source Comments INFORMATION SOURCE (unrecogn ized section and content) DATE CREATED AUTHOR 11/12/2017 [facility] DATE CREATED AUTHOR AUTHOR'S ORGANIZ ATION 11/13/2017 [facility] DATE CREATED AUTHOR AUTHOR'S ORGANIZ ATION 10/02/2022 [facility] DATE CREATED AUTHOR AUTHOR'S ORGANIZ ATION 12/21/2023 [facility] DATE CREATED AUTHOR AUTHOR'S ORGANIZ ATION 02/07/2024 [facility] DATE CREATED AUTHOR AUTHOR'S ORGANIZ ATION 08/19/2024 [facility] DATE CREATED AUTHOR AUTHOR'S ORGANIZ ATION 09/03/2024 [facility] DATE CREATED AUTHOR AUTHOR'S ORGANIZ ATION 09/24/2024 [facility] DATE CREATED AUTHOR AUTHOR'S ORGANIZ ATION 12/02/2024 [facility] DATE CREATED AUTHOR AUTHOR'S ORGANIZ ATION 12/21/2024 [facility] DATE CREATED AUTHOR AUTHOR'S ORGANIZ ATION 01/24/2025 [facility] DATE CREATED AUTHOR AUTHOR'S ORGANIZ ATION 02/20/2025 [facility] DATE CREATED AUTHOR AUTHOR'S ORGANIZ ATION 03/06/2025 [facility] Medical History (unrecognize d section and content) Includes: Medical History in patient's chartNo Medical History Recorded Evaluations & Outcomes (unre cognized section and content) Includes: Evaluations & Outcomes for active GoalsNo Outcomes Recorded Care Teams (unrecognized sec tion and content) Team Status: Inactive Member Role Status Dates Services [facility] Primary Care Provider Active Fletcher Newsome ProviderActive Team Status: Active Member Role Status Dates Services Family [facility] Primary Care Provider Active Team MemberRelationshipSpecialtyStart DateEnd Date Valdez Acosta MD [address] [place] [address] PCP - GeneralInternal Medicine11/01/20Team MemberRelationshipSpecialtyStart Date End Date Valdez Acosta MD [address] [place], [place] [phone] PCP - GeneralInternal Medicine11/01/20Team MemberRelationshipSpecialtyStart Date End Date Valdez Acosta MD [address] [place] [address] PCP - GeneralInternal Medicine11/01/20am MemberRelationshipSpecialtyStart Date End Date Valdez Acosta MD [address] [place] [address], [place] [address] PCP - GeneralInternal Medicine11/01/20am MemberRelationshipSpecialtyStart Date End Date Valdez Acosta MD [address] [place] [address], [place] [address] PCP - GeneralInternal Medicine11/01/20am MemberRelationshipSpecialtyStart Date End Date Valdez Acosta MD [address] [place] [address], [place] [address] PCP - GeneralInternal Medicine11/01/20am MemberRelationshipSpecialtyStart Date End Date Valdez Acosta MD [address] [place] [address], [place] [address] PCP - GeneralInternal Medicine11/01/20am MemberRelationshipSpecialtyStart Date End Date Valdez Acosta MD [address] [place] [address], [place] [address] PCP - GeneralInternal Medicine11/01/20am MemberRelationshipSpecialtyStart Date End Date Valdez Acosta MD [address] [place] [address], [place] [address] PCP - GeneralInternal Medicine11/01/20am MemberRelationshipSpecialtyStart Date End Date Valdez Acosta MD [address] [place] [address], [place] [address] PCP - GeneralInternal Medicine11/01/20Team MemberRelationshipSpecialtyStart Date End Date Valdez Acosta MD [address] [place] [address] PCP - GeneralInternal Medicine11/01/20 MemberRelationshipSpecialtyStart Date End Date Valdez Acosta MD [address] [place] [address] PCP - GeneralInternal Medicine11/01/20 MemberRelationshipSpecialtyStart Date End Date Valdez Acosta MD [address] [place] [address] PCP - GeneralInternal Medicine11/01/20 MemberRelationshipSpecialtyStart Date End Date Valdez Acosta MD [address] [place] [address] PCP - GeneralInternal Medicine11/01/20 MemberRelationshipSpecialtyStart Date End Date Maxim Lanza MD [address] [place] [address] PCP - GeneralFamily Tqadidkj77/4/23 Fred Gracia NP [address] [place] [address] Nurse Practitionermily Medicine05/20/22Team MemberRelationshipSpecialtyStart DateEnd Date Maxim Lanza MD [address] [place] [address] PCP - GeneralFamily Uemtxrtq58/4/23 Fred Gracia NP [address] [place] [address] Nurse Practitionermily Medicine05/20/22Team MemberRelationshipSpecialtyStart DateEnd Date Valdez Acosta MD [address] [place] [address] PCP - GeneralInternal Medicine11/01/20am MemberRelationshipSpecialtyStart Date End Date Valdez Acosta MD [address] [place] [address] PCP - GeneralInternal Medicine11/01/20Team MemberRelationshipSpecialtyStart Date End Date Valdez Acosta MD [address] [place] [address] PCP - GeneralInternal Medicine11/01/20am MemberRelationshipSpecialtyStart Date End Date Valdez Acosta MD [address] [place] [address] PCP - GeneralInternal Medicine11/01/20Team MemberRelationshipSpecialtyStart Date End Date Valdez Acosta MD [address] [place] [address] PCP - GeneralInternal Medicine11/01/20Te MemberRelationshipSpecialtyStart Date End Date Valdez Acosta MD [address] [place] [address] PCP - GeneralInternal Medicine11/01/20Team MemberRelationshipSpecialtyStart Date End Date Valdez Acosta MD [address] [place] [address] PCP - GeneralInternal Medicine11/01/20Team MemberRelationshipSpecialtyStart Date End Date Maxim Lanza MD [address] [place] [address] PCP - GeneralFamily Medicine07/15/23 Fred Gracia NP [address] [place] [address] Primary Care Providermily Medicine05/20/22Te MemberRelationshipSpecialtyStart DateEnd Date Maxim Lanza MD [address] [place] [address] PCP - GeneralFamily Medicine07/15/23 Fred Gracia NP [address] [place] [address] Primary Care Providermily Medicine05/20/22Team MemberRelationshipSpecialtyStart DateEnd Date Maxim Lanza MD [address] [place] [address] PCP - GeneralFamily Medicine07/15/23 Fred Gracia NP [address] [place] [address] Primary Care ProviderL[facility] Medicine05/20/22Te MemberRelationshipSpecialtyStart DateEnd Maxim Lanza MD [address] [place] [address] PCP - [facility] Medicine07/15/23 Fred Gracia NP [address] [place] [address] Primary Care [facility]05/20/22Te MemberRelationshipSpecialtyStart DateEnd Date Maxim Lanza MD [address] [place] [address] [facility]07/15/23 Fred Gracia NP [address] [place] [address] Primary Care [facility]05/20/22Te MemberRelationshipSpecialtyStart DateEnd Date Maxim Lanza MD [address] [place] [address] PCP - [facility]07/15/23 Fred Gracia NP [address] [place] [address] Primary Care [facility] [facility]/22Team MemberRelationshipSpecialtyStart DateEnd Date Maxim Lanza MD [address] [place] [address] PCP - Generalmily Medicine07/15/23 Fred Gracia NP [address] [place] [address] Primary Care ProviderMercy [facility] Cityly Medicine05/20/22Team MemberRelationshipSpecialtyStart DateEnd Date Maxim Lanza MD [address] [place] [address] PCP - [facility] Medicine07/15/23 Fred Gracia NP [address] [place] [address] Primary Care [facility] Medicine05/20/22Team MemberRelationshipSpecialtyStart DateEnd Date Maxim Lanza MD [address] [place] [address] PCP - [facility]07/15/23 Fred Gracia NP [address] [place] [address] [facility] Medicine05/20/22Team MemberRelationshipSpecialtyStart DateEnd Date Maxim Lanza MD [address] [place] [address] PCP - [facility] Medicine07/15/23 Fred Gracia NP [address] [place] [address] Primary Care Provider[facility] Medicine05/20/22Te MemberRelationshipSpecialtyStart DateEnd Date Maxim Lanza MD [address] [place] [address] PCP - [facility] Medicine07/15/23 Fred Gracia NP [address] [place] [address] Primary Care [facility]05/20/22Te MemberRelationshipSpecialtyStart DateEnd Date Maxim Lazna MD [address] [place] [address] PCP - [facility]07/15/23 Fred Gracia, KIRK [address] [place] [address] Primary Care [facility]05/20/22Te MemberRelationshipSpecialtyStart DateEnd Date Maxim Lanza MD [address] [place] [address] [facility] - [facility]07/15/23 Fred Gracia NP [address] [place] [address] Primary Care [facility]05/20/22Team MemberRelationshipSpecialtyStart DateEnd Date Maxim Lanza MD [address] [place] [address] PCP - [facility] Medicine07/15/23 Fred Gracia NP [address] [place] [address] Primary Care [facility] Medicine05/20/22Team MemberRelationshipSpecialtyStart DateEnd Date Maxim Lanza MD [address] [place] [address] PCP - [facility]07/15/23 Fred Gracia NP [address] [place] [address] Primary Care [facility]05/20/22Team MemberRelationshipSpecialtyStart DateEnd Date Maxim Lanza MD [address] [place] [address] PCP - [facility]07/15/23 Fred Gracia NP [address] [place] [address] Primary Care [facility]05/20/22Team MemberRelationshipSpecialtyStart DateEnd Date Maxim Lanza MD [address] [place] [address] PCP - [facility]07/15/23 Fred Gracia NP [address] [place] [address] Primary Care ProviderFamily Medicine05/20/22Team MemberRelationshipSpecialtyStart DateEnd Date Maxim Lanza MD [address] [place] [address] PCP - GeneralFamily Medicine07/15/23 Fred Gracia NP [address] [place] [address] Primary Care ProviderFamily Medicine05/20/22Team MemberRelationshipSpecialtyStart DateEnd Date Maxim Lanza MD [address] [place] [address] PCP - GeneralFamily Medicine07/15/23 Fred Gracia, KIRK [address] [place] [address] Primary Care Prov[facility]erm[facility] Medicine05/20/22Team MemberRelationshipSpecialtyStart DateEnd Date Valdez Acosta MD [address] [place] [address] PCP - GeneralInternal Medicine11/01/20 Sherrie Smith PA-C [facility] [place] [address] Care PartnerInternal Mbutrnmw59/8/24 Elizabeth Lopez, TILE FITTER.[facility] [place] [address] Care PartnerL[facility] [employer] [facility] [employer] Itqrjfdm92/8/24Team MemberRelationshipSpecialtyStart DateEnd Date Maxim Lanza MD [address] [place] [address] PCP - [facility]mily Medicine07/15/23 Fred Gracia NP [address] [place] [address] Primary Care ProviderMer[facility]05/20/22Team MemberRelationshipSpecialtyStart DateEnd Date Maxim Lanza MD [address] [place] [address] PCP - [facility] Medicine07/15/23 Fred Gracia NP [address] [place] [address] Primary Care ProviderMer[facility] Medicine05/20/22Team MemberRelationshipSpecialtyStart DateEnd Date Maxim Lanza MD [address] [place] [address] PCP - Generalmi Medicine07/15/23 Fred Gracia, KIRK [address] [place] [address] Primary Care ProviderMer[facility] Medicine05/20/22Team MemberRelationshipSpecialtyStart DateEnd Date Maxim Lanza MD [address] [place] [address] PCP - [facility]Mer[facility]07/15/23 Fred Gracia NP [address] [place] [address] Primary Care [facility] [employer] [facility] [employer] Medicine05/20/22Team MemberRelationshipSpecialtyStart DateEnd Date Maxim Lanza MD [address] [place] [address] PCP - [facility] Medicine07/15/23 Fred Gracia NP [address] [place] [address] Primary Care [facility]05/20/22Te MemberRelationshipSpecialtyStart DateEnd Date Maxim Lanza MD [address] [place] [address] PCP - [facility] Medicine07/15/23 Fred Gracia NP [address] [place] [address] Primary Care [facility] [employer] [facility] [employer] Medicine05/20/22Team MemberRelationshipSpecialtyStart DateEnd Date Maxim Lanza MD [address] [place] [address] PCP - [facility] Medicine07/15/23 Fred Gracia NP [address] [place] [address] Primary Care [facility] Medicine05/20/22Team MemberRelationshipSpecialtyStart DateEnd Date Maxim Lanza MD [address] [place] [address] PCP - [facility] Medicine07/15/23 Fred Gracia, KIRK [address] [place] [address] Primary Care [facility] [employer] [facility] [employer] Medicine05/20/22Team MemberRelationshipSpecialtyStart DateEnd Date Maxim Lanza MD [address] [place] [address] PCP - [facility]07/15/23 Fred Gracia, KIRK [address] [place] [address] Primary Care [facility]05/20/22Team MemberRelationshipSpecialtyStart DateEnd Date Maxim Lanza MD [address] [place] [address] PCP - [facility] Medicine07/15/23 Fred Gracia NP [address] [place] [address] Primary Care ProviderDonalsonville [facility]05/20/22Team MemberRelationshipSpecialtyStart DateEnd Date Maxim Lanza MD [address] [place] [address] PCP - [facility]07/15/23 Fred Gracia NP [address] [place] [address] Primary Care [facility]05/20/22 Team Status: Inactive Member Role Status Dates Tripp Gruber MD Attending Provider Active St art: August 22, 2024 End: August 22, 2024Team MemberRelationshipSpecialtyStart DateEnd Date Maxim Lanza MD [address] [place] [address] PCP - [facility]07/15/23 Fred Gracia NP [address] [place] [address] Primary Care [facility]05/20/22Team MemberRelationshipSpecialtyStart DateEnd Date Fred Gracia, TILE FITTER-MEDICAL SECRETARY [address] [place] [address] [facility] - [facility] [place]/28[facility]Team MemberRelationshipSpecialtyStart Date End Date Maxim Lanza MD [address] [place] [address] PCP - [facility]07/15/23 Fred Gracia NP [address] [place] [address] Primary Care ProviderDonalsonville Hospital05/20/22Team MemberRelationshipSpecialtyStart DateEnd Date Fred Gracia, TILE FITTER-MEDICAL SECRETARY PCP - GeneralNurse Practitioner08/28/24Team MemberRelationshipSpecialtyStart Date End Date Fred Gracia APRN-MEDICAL SECRETARY PCP - GeneralNurse Practitioner08/28/24Team MemberRelationshipSpecialtyStart Date End Date Maxim Lanza MD [address] [place] [address] PCP - GeneralFamily Medicine07/15/23 Fred Gracia NP [address] [place] [address] Primary Care ProviderMer[facility] Medicine05/20/22 Team Status: Inactive Member Role Status Dates Alonzo Holguin MD Attending Provider Active Sta rt: October 17, 2024 End: October 17, 2024Team MemberRelationshipSpecialtyStart DateEnd Date Maxim Lanza MD [address] [place] [address] PCP - GeneralFamily Medicine07/15/23 Fred Gracia NP [address] [place] [address] Primary Care ProviderFamily Medicine05/20/22Team MemberRelationshipSpecialtyStart DateEnd Date Fred Gracia APRN-MEDICAL SECRETARY PCP - GeneralNurse Practitioner08/28/24Team MemberRelationshipSpecialtyStart Date End Date Fred Gracia APRN-MEDICAL SECRETARY PCP - GeneralNurse Practitioner08/28/24Team MemberRelationshipSpecialtyStart Date End Date Fred Gracia [facility] PCP - GeneralNurse Practitioner08/28/24Team MemberRelationshipSpecialtyStart Date End Date Fred Gracia [facility] PCP - GeneralNurse Practitioner08/28/24Team MemberRelationshipSpecialtyStart Date End Date Fred Gracia [facility] PCP - GeneralNurse Practitioner08/28/24Team MemberRelationshipSpecialtyStart Date End Date Fred Gracia [facility] PCP - GeneralNurse Practitioner08/28/24Team MemberRelationshipSpecialtyStart Date End Date Fred Gracia [facility] PCP - GeneralNurse Practitioner08/28/24 Team Status: Active Member Role Status Dates NON STAFF Primary Care Provider Active Team Status: Inactive Member Role Status Dates Storm Chapman MD Attending Provider Active Start : November 19, 2024 End: November 19, 2024NON STAFFPrimary Care ProviderActiveStart: November 19, 2024 End: November 19, 2024Team MemberRelationshipSpecialtyStart DateEnd Date Fred Gracia [facility] PCP - GeneralNurse Practitioner08/28/24Team MemberRelationshipSpecialtyStart Date End Date [facility] P[facility] - GeneralNurse Practitioner08/28/24Team MemberRelationshipSpecialtyStart Date End Date Fred Gracia [facility] PCP - GeneralNurse Practitioner08/28/24 Team Status: Inactive Member Role Status Dates Miri Villafana , Attending Provider Act dallin Start: November 27, 2024 End: November 27, 2024Te MemberRelationshipSpecialtyStart DateEnd Date [facility] PCP - GeneralNurse Practitioner08/28/24Team MemberRelationshipSpecialtyStart Date End Date Fred Gracia [facility] PCP - GeneralNurse Practitioner08/28/24Team MemberRelationshipSpecialtyStart Date End Date [facility] PCP - GeneralNurse Practitioner08/28/24Team MemberRelationshipSpecialtyStart Date End Date Fred Gracia [facility] PCP - GeneralNurse Practitioner08/28/24Team MemberRelationshipSpecialtyStart Date End Date Fred Gracia [facility] PCP - GeneralNurse Practitioner08/28/24 Team Status: Inactive Member Role Status Dates Stephanie Aguillon DO Attending Provider Active St art: December 29, 2024 End: December 29, 2024NON STAFFPrimary Care ProviderActiveStart: December 29, 2024 End: December 29, 2024Team MemberRelationshipSpecialtyStart DateEnd Date Fred Gracia [facility] PCP - GeneralNurse Practitioner08/28/24Team MemberRelationshipSpecialtyStart Date End Date Fred Gracia [facility] PCP - GeneralNurse Practitioner08/28/24Team MemberRelationshipSpecialtyStart Date End Date Fred Gracia [facility] PCP - GeneralNurse Practitioner08/28/24 Team Status: Inactive Member Role Status Dates NON STAFF Primary Care Provider Active Start: January 14, 2025 End: January 14bdimelda Chapman MDAttkenrick ProviderActiveStart: January 14, 2025 End: January 14, 2025Team MemberRelationshipSpecialtyStart DateEnd Date Fred Gracia [facility] PCP - GeneralNurse Practitioner08/28/24Team MemberRelationshipSpecialtyStart Date End Date Fred Gracia [facility] PCP - GeneralNurse Practitioner08/28/24Team MemberRelationshipSpecialtyStart Date End Date Fred Gracia [facility] PCP - GeneralNurse Practitioner08/28/24 Goals (unrecognized section and content) Goals may be documented in a n alternate section Source Comments (unrecognize d section and content) In the event this informatio n is protected by the Federal Confidentiality of Alcohol and Drug Abuse Patient Records regulations: The Federal rules restrict any use of the information to criminally investigate or prosecute any alcohol or drug abuse patient.[facility] HospitalIn the event this information is protected by the Federal Confidentiality of Alcohol and Drug Abuse Patient Records regulations: The Federal rules restrict any use of the information to criminally investigate or prosecute any alcohol or drug abuse patient.[facility] HospitalIn the event this information is protected by the Federal Confidentiality of Alcohol and Drug Abuse Patient Records regulations: The Federal rules restrict any use of the information to criminally investigate or prosecute any alcohol or drug abuse patient.[facility] HospitalIn the event this information is protected by the Federal Confidentiality of Alcohol and Drug Abuse Patient Records regulations: The Federal rules restrict any use of the information to criminally investigate or prosecute any alcohol or drug abuse patient.[facility] HospitalIn the event this information is protected by the Federal Confidentiality of Alcohol and Drug Abuse Patient Records regulations: The Federal rules restrict any use of the information to criminally investigate or prosecute any alcohol or drug abuse patient.[facility] HospitalIn the event this information is protected by the Federal Confidentiality of Alcohol and Drug Abuse Patient Records regulations: The Federal rules restrict any use of the information to criminally investigate or prosecute any alcohol or drug abuse patient.[facility] HospitalIn the event this information is protected by the Federal Confidentiality of Alcohol and Drug Abuse Patient Records regulations: The Federal rules restrict any use of the information to criminally investigate or prosecute any alcohol or drug abuse patient.[facility] HospitalIn the event this information is protected by the Federal Confidentiality of Alcohol and Drug Abuse Patient Records regulations: The Federal rules restrict any use of the information to criminally investigate or prosecute any alcohol or drug abuse patient.[facility] HospitalIn the event this information is protected by the Federal Confidentiality of Alcohol and Drug Abuse Patient Records regulations: The Federal rules restrict any use of the information to criminally investigate or prosecute any alcohol or drug abuse patient.[facility] HospitalIn the event this information is protected by the Federal Confidentiality of Alcohol and Drug Abuse Patient Records regulations: The Federal rules restrict any use of the information to criminally investigate or prosecute any alcohol or drug abuse patient.[facility] HospitalIn the event this information is protected by the Federal Confidentiality of Alcohol and Drug Abuse Patient Records regulations: The Federal rules restrict any use of the information to criminally investigate or prosecute any alcohol or drug abuse patient.[facility] HospitalIn the event this information is protected by the Federal Confidentiality of Alcohol and Drug Abuse Patient Records regulations: The Federal rules restrict any use of the information to criminally investigate or prosecute any alcohol or drug abuse patient.[facility] HospitalIn the event this information is protected by the Federal Confidentiality of Alcohol and Drug Abuse Patient Records regulations: The Federal rules restrict any use of the information to criminally investigate or prosecute any alcohol or drug abuse patient.[facility] HospitalIn the event this information is protected by the Federal Confidentiality of Alcohol and Drug Abuse Patient Records regulations: The Federal rules restrict any use of the information to criminally investigate or prosecute any alcohol or drug abuse patient.[facility] HospitalIn the event this information is protected by the Federal Confidentiality of Alcohol and Drug Abuse Patient Records regulations: The Federal rules restrict any use of the information to criminally investigate or prosecute any alcohol or drug abuse patient.[facility] HospitalIn the event this information is protected by the Federal Confidentiality of Alcohol and Drug Abuse Patient Records regulations: The Federal rules restrict any use of the information to criminally investigate or prosecute any alcohol or drug abuse patient.[facility] HospitalIn the event this information is protected by the Federal Confidentiality of Alcohol and Drug Abuse Patient Records regulations: The Federal rules restrict any use of the information to criminally investigate or prosecute any alcohol or drug abuse patient.[facility] HospitalIn the event this information is protected by the Federal Confidentiality of Alcohol and Drug Abuse Patient Records regulations: The Federal rules restrict any use of the information to criminally investigate or prosecute any alcohol or drug abuse patient.[facility] HospitalIn the event this information is protected by the Federal Confidentiality of Alcohol and Drug Abuse Patient Records regulations: The Federal rules restrict any use of the information to criminally investigate or prosecute any alcohol or drug abuse patient.[facility] HospitalIn the event this information is protected by the Federal Confidentiality of Alcohol and Drug Abuse Patient Records regulations: The Federal rules restrict any use of the information to criminally investigate or prosecute any alcohol or drug abuse patient.[facility] HospitalIn the event this information is protected by the Federal Confidentiality of Alcohol and Drug Abuse Patient Records regulations: The Federal rules restrict any use of the information to criminally investigate or prosecute any alcohol or drug abuse patient.[facility] HospitalIn the event this information is protected by the Federal Confidentiality of Alcohol and Drug Abuse Patient Records regulations: The Federal rules restrict any use of the information to criminally investigate or prosecute any alcohol or drug abuse patient.[facility] HospitalIn the event this information is protected by the Federal Confidentiality of Alcohol and Drug Abuse Patient Records regulations: The Federal rules restrict any use of the information to criminally investigate or prosecute any alcohol or drug abuse patient.[facility] HospitalIn the event this information is protected by the Federal Confidentiality of Alcohol and Drug Abuse Patient Records regulations: The Federal rules restrict any use of the information to criminally investigate or prosecute any alcohol or drug abuse patient.[facility] HospitalIn the event this information is protected by the Federal Confidentiality of Alcohol and Drug Abuse Patient Records regulations: The Federal rules restrict any use of the information to criminally investigate or prosecute any alcohol or drug abuse patient.[facility] HospitalIn the event this information is protected by the Federal Confidentiality of Alcohol and Drug Abuse Patient Records regulations: The Federal rules restrict any use of the information to criminally investigate or prosecute any alcohol or drug abuse patient.[facility] HospitalIn the event this information is protected by the Federal Confidentiality of Alcohol and Drug Abuse Patient Records regulations: The Federal rules restrict any use of the information to criminally investigate or prosecute any alcohol or drug abuse patient.[facility] HospitalIn the event this information is protected by the [facility] [place] Confidentiality of Alcohol and Drug Abuse Patient Records regulations: The Federal rules restrict any use of the information to criminally investigate or prosecute any alcohol or drug abuse patient.[facility] HospitalIn the event this information is protected by the Federal Confidentiality of Alcohol and Drug Abuse Patient Records regulations: The Federal rules restrict any use of the information to criminally investigate or prosecute any alcohol or drug abuse patient.[facility] Reason for Visit (unrecogniz ed section and content) ReasonCommentsIV Medication AdministrationOcrevusSpecialtyDiagnoses / Procedures Referred By ContactReferred To Contact Diagnoses Multiple sclerosis (HCC) G35 (ICD-10-CM) - Multiple sclerosis (HCC) Procedures INJECTION, OCRELIZUMAB, 1 MG J2350 - INJECTION, OCRELIZUMAB, 1 MG Sarthak Escobar MD, PhD [address] [place] [address] [facility] [address] [place] [address] Referral IDStatusReasonStart DateExpiration DateVisits RequestedVisits [id number] /[id number] Patient Follow-UpReasonCommentsInfusionOcrevusReferral IDStatusReasonStart Date Expiration DateVisits RequestedVisits [id number] Review12/06/[id number] / ProceduresReferred By ContactReferred To Contact IMAGING Diagnoses Multiple sclerosis, relapsing-remitting (HCC) Procedures MRI BRAIN WO/W IVCON MRI BRAIN BRAIN STEM W/O W/CONTRAST MATERIAL Jessica Clarke PA-C [address] [place] [address] Mr Imaging Referral IDStatusReasonStart DateExpiration DateVisits RequestedVisits [id number] Auto-Generated Referral /[id number]h Patient Follow-UpReasonComments Rehab Specialty ClinicSpecialtyDiagnoses / ProceduresReferred By ContactReferred To [facility] Diagnoses Multiple sclerosis, relapsing-remitting (HCC) Procedures CONSULT TO COLOR REPAIRER OCCUPATIONAL THERAPY EVKS HIGH COMPLEX 60 MINS Jessica Clarke PA-C [address] [place] [address] [facility] [address] [place] [address] Referral IDStatusHomeroBend DateExpiration DateVisits RequestedVisits [id number] Auto-Generated Referral /[id number]eAoiafp pt LVM to see about setting up pt and psycology.ReasonCommentsEstablished Patient Follow-UpReasonComments Patient UpdateReasonCommentsURIReasonCommentsConsultCervical painSpecialty Diagnoses / ProceduresReferred By ContactReferred To [facility] Diagnoses Cervical stenosis of spine Procedures [facility] OFFICE/OUTPATIENT [facility] MDM 60 MINUTES Jessica Clarke PA-C [address] [place] [address] Referral IDStatusReasonStart DateExpiration DateVisits RequestedVisits [id number] PCP Requested Referral /[id number]u for MRI needed for Brain and CervicalReasonCommentsPatient QuestionReasonCommentsEstablished PatientReason CommentsOrdersReasonCommentsPost-opPO Lt shoulder scope prob RCR TSCNCO 02/10/24 SpecialtyDiagnoses / ProceduresReferred By ContactReferred To ContactPhysical Therapy Diagnoses S/P arthroscopy of left shoulder Procedures IA OFFICE/OUTPATIENT NEW HIGH MDM 60 MINUTES Eliazar Brooks, DO [address] [place] [address] Aria Kumar, PT Referral IDStatusReasonStart DateExpiration DateVisits RequestedVisits [id number] Review Specialty Services Required /[id number] DateCommentsre: PT04/01/2024She called noting w/ the progress of PT so far she is dealing w/ great pain. She said she has a fu w/ doctor in the beginning of April and she'd like to hold-off till after. I indicated her auth ending date is 04/10/24 and she said she does not want to cont till after fu.ReasonCommentsMed RefillReasonCommentsPainReasonComments Post-opLt shoulder scope, RCR TSCNCO 02/10/24ReasonOnset DateCommentsre: PT Eval pjnqgrmo53/16/2024Call Back4ReasonCommentsMedicare Annual Wellness Visit InitialReasonCommentsSinusitisReasonCommentsWound CheckReasonComments Altered Mental StatusEvaluation of Abnormal Diagnostic TestSpecialtyDiagnoses / ProceduresReferred By ContactReferred To Contact Diagnoses AMS (altered mental status) Altered mental status, unspecified altered mental status type Xena Larios MD [address], [facility] [address] [place] [address] Phone: tel: fax: Referral IDStatusReasonStart DateExpiration DateVisits RequestedVisits [id number] WtdeMlkfjwuiiufaftni25/13/2025ReasonComments Follow-up6 week follow up - tumor resectionReasonOnset DateCommentsoffice note 11/11/2024ReasonOnset DateCommentsReceived referral [facility] 11/11/2024ReasonCommentsNew PatientSpecialtyDiagnoses / ProceduresReferred By ContactReferred To ContactOncology / Hematology and Oncology Diagnoses Brain tumor (CMS-HCC) Double vision Reji Garcia, [employer] [address] [place] [address] Phone: tel: fax: Alcon Khan MD [address] [place] [address] Phone: tel: fax: Referral IDStatusReasonStart DateExpiration DateVisits RequestedVisits [id number] Review Specialty Services Required /[id number]-wbZaueziNbrcn DateCommentsPrior Rtkckndewtgvp50/19/2025TEMOZOLOMIDE Scheduled Active and Recently Administ ered Medications (unrecognized section and content) Medication Order// dexAMETHasone (DECADRON) tablet 2 mg(Linked Group 1) [...] Look-alike/sound-alike medication - verify indication for use. * 1400 (Due) * 2200 (Due) dexAMETHasone (DECADRON) tablet 3 mg(Linked Group [...] Look-alike/sound-alike medication - verify indication for use. * 0531 (Given - Provider: Regina Taylor RN) * 1440 (Given - Provider: Lida Wright RN) * 2118 (Given - Provider: Elma Moreno, MOE) * 0554 (Given - Provider: Elma Moreno, RN) * 1518 (Given - Provider: Taylor Ayala, MOE) * 2057 (Given - Provider: Elma Moreno, MOE) * 0600 (Due) enoxaparin (LOVENOX) syringe 40 mg 40 mg, subcutaneous, 2 times daily, First dose (after last modification) on 09/26/24 at 2100, When Creatinine Clearance 30 mL/min or greater Look-alike/sound-alike medication - verify indication for use. * 0912 (Given - Provider: Lida Wright RN) * 2122 (Given - Provider: Elma Moreno, MOE) * 0829 (Given - Provider: Taylor Ayala RN) * 2056 (Given - Provider: Elma Moreno, MOE) * 0900 (Due) * 2100 (Due) levETIRAcetam (KEPPRA) IVPB 500 mg/100 mL in iso-osmotic sodium chloride (5 mg/mL premix) (CANCELED) 500 mg, intravenous, at 400 mL/hr, Administer over 15 Minutes, Every 12 hours, First dose on 09/19/24 at 0715, Look-alike/sound-alike medication - verify indication for use. * 0530 (New Bag - Provider: Regina Taylor, RN) * 0545 (Stop Bag - Provider: Regina Taylor RN) levETIRAcetam (KEPPRA) tablet 500 mg 500 mg, oral, 2 times daily, First dose on Sat09/27/24 at 1730, Look-alike/sound-alike medication -verify indication for use. * 1704 (Given - Provider: Lida Wright RN) * 08 (Given - Provider: Taylor Ayala, MOE) * 2053 (Given - Provider: Elma Moreno, MOE) * 0900 (Due) * 2100 (Due) metoprolol tartrate (LOPRESSOR) tablet 25 mg 25 mg, oral, 2 times daily, First dose (after last modification) on Sat09/25/24 at 0900, Hold if SBPis less than 110 mmHg, or diastolic BP is less than 70 mmHg. Thank you. Look-alike/sound-alike medication - verify indication for use. * 0912 (Given - Provider: Lida Wright RN) * 2117 (Given - Provider: Elma Moreno RN) * 0829 (Given - Provider: Taylor Ayala, MOE) * 2053 (Given - Provider: Elma Moreno, MOE) * 0900 (Due) * 2100 (Due) mirtazapine (REMERON CANDI-TAB) disintegrating tablet 15 mg 15 mg, oral, Nightly, First dose (after last modification) on [place] 09/24/24 at 2200 * 2118 (Given - Provider: Elma Moreno, MOE) * 2054 (Given - Provider: Elma Moreno, MOE) * 2199 (Due) sennosides-docusate sodium (SENOKOT-S) 8.6-50 mg 2 tablet 2 tablet, oral, Nightly, First dose (after last modification) on [facility] 09/24/24 at 2200, HOLD for greater than 2 bowel movements in the past 24 hours * 2118 (Given - Provider: Elma Moerno, MOE) * 2053 (Given - Provider: Elma Moreno, RN) * 220 (Due) Medication Order// dextrose 2.5 % in water, 1,000 mL infusion 50-150 mL/hr, intravenous, Continuous, Starting on 09/19/24 at 0300, For Sodium level 160 mmol/L or ixpwdpv=467 mL/hr; 155 to 159 mmol/L=125 mL/hr; 150- 154 mmol/L=100 mL/hr; 145-149 mmol/L=50 mL/hr; Less than 145 mmol/lL=INT IVs Notify Nephrology if sodium decreases 10 mmol/L or greater in 24 hours. solution= dextrose 2.5 % Medication Order// acetaminophen (TYLENOL) 650 mg/20.3 mL solution 650 mg(Linked Group 2) 650 mg, nasogastric, Every 6 hours PRN, mild pain - pain scale 1-3, headaches, temperature greater than 38 C, Starting on 09/19/24 at 0413 acetaminophen (TYLENOL) tablet 650 mg(Linked Group 2) 650 mg, oral, Every 6 hours PRN, mild pain - pain scale 1-3, headaches, temperature greater than 38C, Starting on 09/19/24 at 0413 barium sulfate [...] (VARIBAR PUDDING) 40 % (w/v), 30% (w/w) oralpaste, Starting on Sat09/28/24 at 1438, For 1 dose * 1444 (Given - Provider: Lorna Dias [employer]) barium sulfate (VARIBAR THIN HONEY) 40 %(w/v), 29% (w/w)(1500 CPS) suspension 5 mL 5 mL, oral, Once in imaging, contrast, Radiology, Starting on 09/28/24 at 1438, For 1 dose barium sulfate (VARIBAR THIN) 81 % (w/w) powder 148 g (COMPLETED) 148 g, oral, Once in imaging, contrast, barium sulfate (VARIBAR THIN) 40 % (w/v) powder, Starting on 09/28/24 at 1438, For 1 dose * 1444 (Given - Provider: Lorna Dias, [employer]) bisacodyL (DULCOLAX) suppository 10 mg 10 mg, [...] 4 Hours, As needed, ionized calcium 3.4 mg/dLor less, Starting on 09/19/24 at 0258, IV administration of calcium via a central or deep vein ispreferred. Avoid administration in small hand veins. VESICANT [...] less than 70 mg/dL, Starting on 09/19/24 [id number], If patient conscious and taking PO. If blood glucose is not greater than 70 mg/dL after initial treatment, repeat treatment. dextrose 50 % in water (D50W) 50% solution 25 mL 25 mL, intravenous, As needed, low blood sugar, blood glucose less than 70 mg/dL and unconscious orNPO with IV access, Starting on 09/19/24 at [...] mg/dL after initial treatment, repeat treatment. VESICANT (RED)Warning: HYPERTONIC solution. glucagon HCL injection 1 mg [...] additional orders. If blood glucose is not greaterthan 70 mg/dL after initial treatment, repeat treatment. hydrALAZINE (APRESOLINE) injection 10 mg 10 mg, intravenous, Every 6 hours PRN, high blood pressure, Starting on 09/19/24 at 0420, For systolic blood pressure greater than 140 mmHg Look-alike/sound-alike medication - verify indication foruse. Administer IV doses as a slow IV push; maximum rate: 5 mg/minute. ipratropium-albuteroL (DUONEB) 0.5 mg-3 mg(2.5 mg base)/3 mL nebulizer solution 3 mL 3 mL, nebulization, Every 6 hours PRN, wheezing, shortness of breath, Starting on 09/26/24 at 2101, Implement INPATIENT/ED Bronchodilator Clinical Practice Guidelines? Yes * 0008 (Given - Provider: Ibeth Bhatti RCP) * 1604 (Given - Provider: Nahomy Brown RCP) * 0331 (Given - Provider: Jimmy Luo RCP) [...] complete. With each magnesium result continue the replacementorders as needed. niCARdipine (CARDENE) infusion 25 mg/50 [...] in 8 ounces of water, juice, soda, coffeeor tea. potassium chloride (K-TAB,KLOR-CON) CR tablet 20-60 [...] level 2.3 mg/dL or less., Starting on Sat09/19/24 at 0258,If dose administered, recheck phosphorus level 4 hours [...] level 2.3 mg/dL or less, Starting on Sat09/19/24 at 0258, Administer over 6 hours via dedicated line (peripheralline). If administered, recheck phosphorus level 4 hours after infusion complete. Order Group 1: dexAMETHasone (DECADRON) tablet 4 [...] pain scale 1-3, headaches, temperature greater than 38C, Starting on 09/19/24 at 0413 Or acetaminophen [...] Administer over 6 hours via dedicated line (peripheralline). If administered, recheck phosphorus level 4 hours [...] mg/dL or less., Starting on 09/19/24 at 0258,If dose administered, recheck phosphorus level 4 hours [...] BE BASED ON THE PRIMARY CLINICAL RECORDS. [employer] [facility]. provides no warranty or guarantee of the accuracy or completeness of information in this document.
[2025-04-21 14:36] LABS: Hematocrit 45.0 % (36.0-48.0); Hemoglobin 14.5 g/dL (12.0-16.0); Immature Granulocytes Abs Auto 0.03 10^3/uL (0.00-0.03); Immature Granulocytes Pct Auto 0.3 % (0.0-0.5); Lymphocytes Absolute Auto 0.9 10^3/uL (1.2-3.8); Mean Corpuscular HGB Conc 32.2 g/dL (29.9-35.2); Mean Corpuscular Hemoglobin 30.2 pg (26.7-34.0); Mean Corpuscular Volume 93.8 fL (81.0-99.0); Platelet Count 232 10^3/uL (150-450); Red Blood Count 4.80 10^6/uL (4.20-5.40); White Blood Count 9.0 10^3/uL (4.0-11.0)
[2025-04-21 14:43] LABS: Anion Gap 7.4; Blood Urea Nitrogen 12.0 mg/dL (7.0-18.0); Calcium 9.4 mg/dL (8.5-10.1); Carbon Dioxide 32.4 mmol/L (21.0-32.0); Chloride 107 mmol/L (98-107); Estimated GFR (African America >60 (>=60 mL/min/1.73m^2); Estimated GFR (Non-African Ame 53 (>=60 mL/min/1.73m^2); Glucose 94 mg/dL (74-106); Potassium 3.8 mmol/L (3.5-5.1); Sodium 143 mmol/L (136-145)
[2025-04-21 14:55] VITALS: BP 107/92
[2025-04-21] MEDS: DEXAMETHASONE SOD PHOS 4 MG/ML VIAL IV (15:00)
[2025-04-21 15:54] VITALS: BP 127/91
[2025-04-21 17:10] VITALS: BP 149/90
[2025-04-21 17:47] VITALS: BP 138/111; PULSE 107; O2SAT 96
== END 2025-04-21 18:48 | disposition short-term general hospital (02) ==
PROVIDERS: Emergency Provider Emergency Medicine; PCP Nurse Practitioner
DX: D49.6 Neoplasm of unspecified behavior of brain (principal); R93.0 Abnormal findings on diagnostic imaging of skull and head, not elsewhere classified; Z85.841 Personal history of malignant neoplasm of brain; Z92.21 Personal history of antineoplastic chemotherapy; Z92.3 Personal history of irradiation
CPT/HCPCS: 36415; 70450; 80048; 85025; 96374; 99285; J1100